=== PATIENT | female | born 1960 | race Hispanic/Latino ===

== ENCOUNTER 2018-08-17 15:02 | Emergency (ER) | payer BC, OTHER ==
--- OUTSIDE RECORDS SUMMARY | 2018-08-17 15:04 | XMS REPORT ---
:1960 Author Organization [employer] Care Team Providers Name Role Phone Slade, Na Provider Role Unavailable Allergies No Known Allergies Problems Problem Type Condition Code Onset Dates Condition Status Problem Anxiety F41.9 Active Problem Gastroesophageal reflux disease K21.9 Active without esophagitis Problem Essential hypertension I10 Active Problem Grieving F43.21 Active Problem Osteoarthritis involving multiple M15.9 Active joints on both sides of body Problem 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 Active Medications No Known Medications Results No Known Results Summary Purpose [employer] Submission
--- OUTSIDE RECORDS SUMMARY | 2018-08-17 15:04 | XMS REPORT ---
:1960 Author Organization [employer] Care Team Providers Name Role Phone Slade, Na Provider Role Unavailable Allergies, Adverse Reactions, Alerts Substance Reaction Event Type N.K.D.A. 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 Assessment Essential hypertension I10 Active Assessment Osteoarthritis involving multiple M15.9 Active joints on both sides of body Assessment Grieving F43.21 Active Assessment Gastroesophageal reflux disease K21.9 Active without esophagitis Assessment Anxiety F41.9 Active Problem Anxiety F41.9 Active Problem Gastroesophageal reflux disease K21.9 Active without esophagitis Problem Essential hypertension I10 Active Problem Grieving F43.21 Active Problem Osteoarthritis involving multiple M15.9 Active joints on both sides of body Problem 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 Active Medications Medication Code Code Instructions Start End Status Dosage System Date Date Gabapentin ND 19709689659 300 MG Orally July Active 1 capsule Once a day 2018 Diazepam ND 38341192285 5 MG Orally July Active 1 tablet Once a day prn 2018 as needed panic attacks Phenergan [facility] [address]-89 25mg Po Q 12 Active one tablet hours Robaxin-750 ND 25695575628 750 MG Orally Active 1 tablet every 4 hrs Seroquel XR ND 13901731591 300 MG Orally Active 1 tablet Once a day in the evening Lexapro ND 01692761016 20 MG Orally Active 1 tablet Once a day Alprazolam ND 84725390153 1 MG Orally Active 1 tablet Twice a day Losartan ND 40781002481 100 MG Orally Active 1 tablet Potassium Once a day Results No Known Results Summary Purpose [employer] Submission
--- OUTSIDE RECORDS SUMMARY | 2018-08-17 15:07 | XMS REPORT ---
:1960 [facility] Address [address] [place] [address] Care Team Providers Name Role Phone Gisselle Mai DIRECTOR BROADCAST-C Unavailable Unavailable Boogie Cox Unavailable Unavailable PROVIDER, ED TEMP Unavailable Unavailable HOMAR LOVELACE Unavailable Unavailable To, Bradford Unavailable Unavailable GREGORY PONCE Unavailable Unavailable DIANA CASTILLO Unavailable Unavailable Problems This patient has no known problems. Allergies, Adverse Reactions, Alerts This patient has no known allergies or adverse reactions. Medications This patient has no known medications. Results Test Description Test Time Test Comments Text Results Atomic Results Result Comments Culture, Urine 2017-08-07 15:57:00 Test Item Value Reference Range Comments Culture, Urine (test code=URC) NF Culture, Urine (test code=URC1) 10 NSF * This is an EDITED result. * A prior result that was reported as final has been changed. [id number] 22:53:00 Test Item Value Reference Range Comments Urinalysis (test LISA Yellow code=UACLR) Urinalysis (test CLOUDY Clear code=UACLY) Urinalysis (test 1.030 1.002-1.036 code=SPGR) Urinalysis (test 5.5 5.0-9.0 code=CELSO) Urinalysis (test Trace Negative code=UALEU) Urinalysis (test Negative Negative code=UANIT) Urinalysis (test Trace mg/dL Neg-Trace code=PROUADIP) Urinalysis (test Negative mg/dL Negative code=GLUCU) Urinalysis (test Negative mg/dL Negative code=KETU) Urinalysis (test 1.0 mg/dL 0.2-1.0 code=UAUROB) Urinalysis (test Small Negative CAU code=UABIL) TION Urine Bilirubin has a high incidence of false positiveresults due to urine color interferance.Interpret results in conjunction with other clinicalfindings. Urinalysis (test Negative Negative code=UABLD) Urinalysis (test 0-3 HPF 0-3 code=UARBC) Urinalysis (test 7-10 HPF 0-3 code=UAWBC) Urinalysis (test 7-10 HPF 0-3 code=UASQUAM) Urinalysis (test Rare-Few HPF None Seen code=UABAC) Urinalysis (test 7-10 HYALINE CAST 0-3 Hyaline code=UACAST) LPF Urine Source: Urine [id number] SURGICAL PATHOLOGY, LEVEL [id number] 14:31:00-- [address] [address] Laboratory Printed: 07/09/[address] [place] [address] DAEMPathology Page: 1 Patient: ZEKE ROMERO Birthdate: 1960 Age/Sex: 56/F Spec#: [id number]: HERMES SALAZAR Specimen Date: 07/08/17 Received Date: 07/08/17 Specimen: LIVER BIOPSY CLINICAL DIAGNOSIS cholestatic LFT's PATHOLOGIC DIAGNOSIS Liver, left, ultrasound-guided core biopsies: - 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 - Negative for bridging fibrosis and cirrhosis (trichrome and reticulin special stains,both performed with good external controls). - Scattered noncaseating epithelioid granulomas within portal tracts. - Negative for steatosis. - Negative for cholestasis. - Negative for increased hepatocellular iron deposition (Fe special stain performed withgood control). -Negative for neoplasia. Comment: The patient's positive anti-mitochondrial antibody (AMA) M2 fraction is noted.There is irregular proliferation of mildly atypical cholangioles along the border of portaltracts (highlighted with PAS/AB special stain performed with good external control). Portaltracts have nonsuppurative duct damage, with distorted ducts surrounded and infiltrated bysmall mature lymphocytes. The portal tracts also have inflammatory infiltration composed ofepithelioid histiocytes, plasma cells, and few neutrophils. Pathologist: Kelvin Conway Entered by:07/09/17 - 1430 [facility] PROCEDURES: 43655, 75403/4 Patient: ZEKE ROMERO ReLoc: T4-A MR#: [id number] CONTINUED ON NEXT PAGE Dis: 07/09/17ta: DIS IN [address] [address] Laboratory Printed: 07/09/17 1431 [facility] DAEMPathology Fax: Page: 2 Patient: ZEKE ROMERO [id number] (Continued) GROSS DESCRIPTION A. LIVER BIOPSY LEFT LOBE The specimen is received in 10%formalin, and is labeled with the patient's name and "liverbiopsy". The specimen consists of three cores of snow soft tissue ranging from 0.7 to 2.1 cmin length, and each one measures less than 0.1 cm in diameter. The entire specimen issubmitted in one cassette. Dictated by: DANII SHAHID Entered by:07/08/17 - 1316 [facility].YGP MICROSCOPIC DESCRIPTION A microscopic examination was performed to arrive at the diagnostic conclusion reported. Signed (Electronically Signed) Kelvin August 15 Patient: ZEKE ROMERO Re07/03/17Loc: T4-A MR#: [id number] END OF REPORT Dis: 07/09/18Sta: DIS [id number] 05:13:00 Test Item Value Reference Range Comments Chemistry (test code=NA-T) 138 mmol/L 136-145 Chemistry (test code=K-T) 3.7 mmol/L 3.5-5.1 Chemistry (test code=CL) 104 mmol/L 98-107 Chemistry (test code=CO2) 28 mmol/L 22-29 Chemistry (test code=ANGP) 10 mmol/L 10-20 Chemistry (test code=BUN) 5 mg/dL 9.8-20.1 Chemistry (test code=CREATT) 0.73 mg/dL 0.6-1.1 Chemistry (test 83 Reference Range for Estimated code=EGFRMDRD) GFR: Greater than 90 mL/min/1.73 m2NOTE:The MDRD equation has not been validated for use with theelderly (over 70 years of age), women, patientswith serious comorbid condition or persons with extremes ofbody size, muscle mass, or nutritional status. Chemistry (test code=GLU-T) 101 mg/dL 70-105 Chemistry (test code=CA) 8.9 mg/dL 7.8-10.44 Chemistry (test code=TBILI) 0.7 mg/dL 0.2-1.2 Chemistry (test code=TP) 6.6 g/dL 6.0-8.3 Chemistry (test code=ALB) 3.7 g/dL 3.5-5.0 Chemistry (test code=GLOB) 2.9 g/dL 2.4-3.5 Chemistry (test code=AG) 1.3 g/dL 1.2-2.2 Chemistry (test code=ALP) 626 U/L 40-150 Chemistry (test code=AST) 49 U/L 5-34 Chemistry (test code=ALT) 75 U/L 8-55 Reference Lab [id number] 04:14:00 Test Item Value Reference Range Comments Reference Lab Testing 10 U/mL 0-35 Laurent ECLIA methodologyPerformed at: (test evnn=FT359) - [facility] [address] [place], [place] [id number] Director: Chico Suero MD, Phone: [phone] Reference Lab [id number] 16:14:00 Test Item Value Reference Range Comments Reference Lab Testing (test 128.5 Units 0.0-20.0 code=MARLON) Negative 0.0 - 20.0 Equivocal 20.1 - 24.9 Positive >24.9Mitochondrial (M2) Antibodies are found in 90-96% ofpatients with primary biliary cirrhosis.Performed at: [facility] [id number] Director: Chester Rider MD, Phone: [phone] Reference Lab [id number] 16:14:00 Test Item Value Reference Range Comments Reference Lab Testing <9.0 U/mL 0.0-9.0 (test code=PANCAMY) Reference Lab Testing Less than 3.5 0.0-3.5 (test code=PANCAPR) U/mL Reference Lab Testing <1:20 titer Neg:<1:20 (test code=ANCAT) Reference Lab Testing <1:20 titer Neg:<1:20 The presence of positive (test code=ANCAP) fluorescence exhibiting P-ANCA orC-ANCA patterns alone is not specific for the diagnosis ofWegener's Granulomatosis (WG) or microscopic polyangiitis.Decisions about treatment should not be based solely onANCA IFA results. The International ANCA Group Consensusrecommends follow up testing of positive sera with both IA-3 and MPO-ANCA enzyme immunoassays. As many as 5% serumsamples are positive only by EIA. Ref. AM J Clin Vdqqqu8152;111:507-513. Reference Lab Testing <1:20 titer Neg:<1:20 The atypical pANCA pattern has (test code=ATANCA) been observed in asignificant percentage of patients with ulcerative colitis,primary sclerosing cholangitis and autoimmune hepatitis.Performed at: [facility] [id number] Director: Chester Rider MD, Phone: [phone] [id number] 05:12:00 Test Item Value Reference Range Comments Chemistry (test 138 mmol/L 136-145 code=NA-T) Chemistry (test 3.6 mmol/L 3.5-5.1 code=K-T) Chemistry (test code=CL) 106 mmol/L 98-107 Chemistry (test 25 mmol/L 22-29 code=CO2) Chemistry (test 11 mmol/L 10-20 code=ANGP) Chemistry (test Less than 4 mg/dL 9.8-20.1 code=BUN) Chemistry (test 0.66 mg/dL 0.6-1.1 code=CREATT) Chemistry (test Greater than 90 Reference Range for code=EGFRMDRD) Estimated GFR: Greater than 90 mL/min/1.73 m2NOTE:The MDRD equation has not been validated for use with theelderly (over 70 years of age), women, patientswith serious comorbid condition or persons with extremes ofbody size, muscle mass, or nutritional status. Chemistry (test 85 mg/dL 70-105 code=GLU-T) Chemistry (test code=CA) 8.5 mg/dL 7.8-10.44 Chemistry (test 0.8 mg/dL 0.2-1.2 code=TBILI) Chemistry (test code=TP) 6.5 g/dL 6.0-8.3 Chemistry (test 3.6 g/dL 3.5-5.0 code=ALB) Chemistry (test 2.9 g/dL 2.4-3.5 code=GLOB) Chemistry (test code=AG) 1.2 g/dL 1.2-2.2 Chemistry (test 641 U/L 40-150 code=ALP) Chemistry (test 53 U/L 5-34 code=AST) Chemistry (test 86 U/L 8-55 code=ALT) Reference Lab [id number] 22:07:00 Test Item Value Reference Range Comments Reference Lab Testing (test 785 IU/L 39-117 code=ISOALKT) Reference Lab Testing (test 25 % 14-68 code=ISOALKBT) Reference Lab Testing (test 74 % 18-85 code=ISOALKLT) Reference Lab Testing (test 1 % 0-18 Performed at: - [facility] code=ISOALKIT) [address] [id number] Director: Chico Suero MD, Phone: [phone] at: [facility] [address] [id number] Director: Chester Rider MD, Phone: [phone] [id number] 11:48:00 Test Item Value Reference Range Comments Chemistry (test code=TBILI) 0.7 mg/dL 0.2-1.2 Chemistry (test code=DBILI) 0.6 mg/dL 0.1-0.3 Chemistry (test code=TP) 5.9 g/dL 6.0-8.3 Chemistry (test code=ALB) 3.4 g/dL 3.5-5.0 Chemistry (test code=ALP) 635 U/L 40-150 Chemistry (test code=AST) 57 U/L 5-34 Chemistry (test code=ALT) 92 U/L 8-55 [id number] 06:08:00 Test Item Value Reference Range Comments Chemistry (test 140 mmol/L 136-145 code=NA-T) Chemistry (test code=K-T) 3.7 mmol/L 3.5-5.1 Chemistry (test code=CL) 107 mmol/L 98-107 Chemistry (test code=CO2) 29 mmol/L 22-29 Chemistry (test 8 mmol/L 10-20 code=ANGP) Chemistry (test code=BUN) 4 mg/dL 9.8-20.1 Chemistry (test 0.64 mg/dL 0.6-1.1 code=CREATT) Chemistry (test Greater than 90 Reference Range for code=EGFRMDRD) Estimated GFR: Greater than 90 mL/min/1.73 m2NOTE:The MDRD equation has not been validated for use with theelderly (over 70 years of age), women, patientswith serious comorbid condition or persons with extremes ofbody size, muscle mass, or nutritional status. Chemistry (test 91 mg/dL 70-105 code=GLU-T) Chemistry (test code=CA) 8.5 mg/dL 7.8-10.44 [id number] 06:06:00 Test Item Value Reference Range Comments Chemistry (test code=TBILI) 0.9 mg/dL 0.2-1.2 Chemistry (test code=DBILI) 0.7 mg/dL 0.1-0.3 Chemistry (test code=TP) 6.1 g/dL 6.0-8.3 Chemistry (test code=ALB) 3.5 g/dL 3.5-5.0 Chemistry (test code=ALP) 766 U/L 40-150 Chemistry (test code=AST) 100 U/L 5-34 Chemistry (test code=ALT) 129 U/L 8-55 [id number] 05:57:00 Test Item Value Reference Range Comments Hematology (test code=WBCT) 3.7 thou/uL 4.8-10.8 Hematology (test code=RBCT) 3.41 mill/uL 4.20-5.40 Hematology (test code=HGBT) 10.3 g/dL 12.0-16.0 Hematology (test code=HCTT) 31.7 % 36.0-47.0 Hematology (test code=MCV) 92.7 fl 81.0-99.0 Hematology (test code=MCH) 30.3 pg 27.0-31.0 Hematology (test code=MCHC) 32.7 g/dL 32.0-36.0 Hematology (test code=RDW) 11.8 % 11.5-14.5 Hematology (test code=PLTT) 201 thou/uL 130-400 Hematology (test code=MPV) 7.0 fL 7.4-10.4 Hematology (test code=%NEUT) 45.6 % 42.0-75.0 Hematology (test code=%LYMPH) 38.8 % 21.0-51.0 Hematology (test code=%MONO) 7.8 % 0.0-10.0 Hematology (test code=%EOS) 7.4 % 0.0-10.0 Hematology (test code=%BASO) 0.4 % 0.0-1.0 Hematology (test code=NEUT#) 1.7 thou/uL 1.40-6.50 Hematology (test code=LYMPH#) 1.4 thou/uL 1.20-3.40 Hematology (test code=MONO#) 0.3 thou/uL 0.11-0.59 Hematology (test code=EOS#) 0.3 thou/uL 0.0-0.7 Hematology (test code=BASO#) 0.0 thou/uL 0.0-0.2 [id number] 05:55:00 Test Item Value Reference Range Comments Coagulation (test 13.5 SEC 12.0-14.7 code=PT-T) Coagulation (test 1.0 ATTENTION: READ code=INR) CAREFULLY -The recommended therapeutic ranges for oral anticoagulanttreatments are: Low Intensity: 1.5 - 2.0 Moderate Intensity: 2.0 - 3.0 High Intensity (1): 2.5 - 3.5 High Intensity (2): 3.0 - 4.0 CRITICAL: > 4.0 Anticoagulant? [id number] 05:36:00 Test Item Value Reference Range Comments Chemistry (test 140 mmol/L 136-145 code=NA-T) Chemistry (test code=K-T) 3.9 mmol/L 3.5-5.1 Chemistry (test code=CL) 107 mmol/L 98-107 Chemistry (test code=CO2) 27 mmol/L 22-29 Chemistry (test 10 mmol/L 10-20 code=ANGP) Chemistry (test code=BUN) 7 mg/dL 9.8-20.1 Chemistry (test 0.64 mg/dL 0.6-1.1 code=CREATT) Chemistry (test Greater than 90 Reference Range for code=EGFRMDRD) Estimated GFR: Greater than 90 mL/min/1.73 m2NOTE:The MDRD equation has not been validated for use with theelderly (over 70 years of age), women, patientswith serious comorbid condition or persons with extremes ofbody size, muscle mass, or nutritional status. Chemistry (test 89 mg/dL 70-105 code=GLU-T) Chemistry (test code=CA) 8.9 mg/dL 7.8-10.44 [id number] 05:33:00 Test Item Value Reference Range Comments Chemistry (test code=TBILI) 0.9 mg/dL 0.2-1.2 Chemistry (test code=DBILI) 0.6 mg/dL 0.1-0.3 Chemistry (test code=TP) 6.8 g/dL 6.0-8.3 Chemistry (test code=ALB) 3.8 g/dL 3.5-5.0 Chemistry (test code=ALP) 864 U/L 40-150 Chemistry (test code=AST) 147 U/L 5-34 Chemistry (test code=ALT) 160 U/L 8-55 [id number] 05:28:00 Test Item Value Reference Range Comments Hematology (test code=WBCT) 4.6 thou/uL 4.8-10.8 Hematology (test code=RBCT) 3.58 mill/uL 4.20-5.40 Hematology (test code=HGBT) 10.8 g/dL 12.0-16.0 Hematology (test code=HCTT) 32.3 % 36.0-47.0 Hematology (test code=MCV) 90.2 fl 81.0-99.0 Hematology (test code=MCH) 30.2 pg 27.0-31.0 Hematology (test code=MCHC) 33.4 g/dL 32.0-36.0 Hematology (test code=RDW) 11.8 % 11.5-14.5 Hematology (test code=PLTT) 217 thou/uL 130-400 Hematology (test code=MPV) 6.6 fL 7.4-10.4 Hematology (test code=%NEUT) 57.5 % 42.0-75.0 Hematology (test code=%LYMPH) 30.2 % 21.0-51.0 Hematology (test code=%MONO) 7.6 % 0.0-10.0 Hematology (test code=%EOS) 3.6 % 0.0-10.0 Hematology (test code=%BASO) 1.1 % 0.0-1.0 Hematology (test code=NEUT#) 2.7 thou/uL 1.40-6.50 Hematology (test code=LYMPH#) 1.4 thou/uL 1.20-3.40 Hematology (test code=MONO#) 0.4 thou/uL 0.11-0.59 Hematology (test code=EOS#) 0.2 thou/uL 0.0-0.7 Hematology (test code=BASO#) 0.1 thou/uL 0.0-0.2 Chemistry - Elizabeth [id number] 13:02:00 Test Item Value Reference Range Comments Chemistry - Elizabeth Negative Negative Testing (test code=ANASC) Chemistry - Elizabeth Negative Negative SYMPHONY SCREEN INCLUDES: Testing (test SIDDIQUI, SS-A/Ro, SS-B/La, code=ANASYM) U1RNP,RNP70, SCL-70, CENP, Meka-1 Chemistry - Elizabeth 0.10 Ratio <0.7 Negative Testing (test code=ANASYMQUANT) Chemistry - Elizabeth 3.1 IU/mL <10 Negative Testing (test code=DSDNAIGG) Chemistry - Elizabeth dsDNA Less than Testing (test 10.0 IU/mL=Negative code=DSDNAINTERP) 10.0 - 15.0 IU/mL=Equivocal Greater than 15.0 IU/mL=POSITIVE Chemistry - Elizabeth NEW METHOD Values obtained with Testing (test different assay methods code=ELIAANANEWMETH) CANNOT be usedINTERCHANGEABLY.If in the course of monitoring a patient, the assay methodused for determining levels is changed, a newbaseline/serial monitoring may need to be performed.SEE REFERENCE RANGES FOR NEW METHODOLOGY.Method: Enzyme Linked Fluorescent Immunoassay (Elizabeth)References: [employer] Elizabeth Package Inserts - Directions for, June, July 2016, [facility]. [id number] 05:00:00 Test Item Value Reference Range Comments Chemistry (test code=TBILI) 0.9 mg/dL 0.2-1.2 Chemistry (test code=DBILI) 0.6 mg/dL 0.1-0.3 Chemistry (test code=TP) 6.9 g/dL 6.0-8.3 Chemistry (test code=ALB) 3.9 g/dL 3.5-5.0 Chemistry (test code=ALP) 837 U/L 40-150 Chemistry (test code=AST) 117 U/L 5-34 Chemistry (test code=ALT) 144 U/L 8-55 [id number] 04:50:00 Test Item Value Reference Range Comments Chemistry (test 139 mmol/L 136-145 code=NA-T) Chemistry (test code=K-T) 3.9 mmol/L 3.5-5.1 Chemistry (test code=CL) 107 mmol/L 98-107 Chemistry (test code=CO2) 24 mmol/L 22-29 Chemistry (test 12 mmol/L 10-20 code=ANGP) Chemistry (test code=BUN) 9 mg/dL 9.8-20.1 Chemistry (test 0.63 mg/dL 0.6-1.1 code=CREATT) Chemistry (test Greater than 90 Reference Range for code=EGFRMDRD) Estimated GFR: Greater than 90 mL/min/1.73 m2NOTE:The MDRD equation has not been validated for use with theelderly (over 70 years of age), women, patientswith serious comorbid condition or persons with extremes ofbody size, muscle mass, or nutritional status. Chemistry (test 90 mg/dL 70-105 code=GLU-T) Chemistry (test code=CA) 8.4 mg/dL 7.8-10.44 [id number] 04:39:00 Test Item Value Reference Range Comments Hematology (test code=WBCT) 4.8 thou/uL 4.8-10.8 Hematology (test code=RBCT) 3.63 mill/uL 4.20-5.40 Hematology (test code=HGBT) 10.8 g/dL 12.0-16.0 Hematology (test code=HCTT) 32.7 % 36.0-47.0 Hematology (test code=MCV) 90.0 fl 81.0-99.0 Hematology (test code=MCH) 29.9 pg 27.0-31.0 Hematology (test code=MCHC) 33.2 g/dL 32.0-36.0 Hematology (test code=RDW) 12.1 % 11.5-14.5 Hematology (test code=PLTT) 212 thou/uL 130-400 Hematology (test code=MPV) 6.1 fL 7.4-10.4 Hematology (test code=%NEUT) 57.1 % 42.0-75.0 Hematology (test code=%LYMPH) 29.2 % 21.0-51.0 Hematology (test code=%MONO) 6.9 % 0.0-10.0 Hematology (test code=%EOS) 5.8 % 0.0-10.0 Hematology (test code=%BASO) 1.0 % 0.0-1.0 Hematology (test code=NEUT#) 2.7 thou/uL 1.40-6.50 Hematology (test code=LYMPH#) 1.4 thou/uL 1.20-3.40 Hematology (test code=MONO#) 0.3 thou/uL 0.11-0.59 Hematology (test code=EOS#) 0.3 thou/uL 0.0-0.7 Hematology (test code=BASO#) 0.0 thou/uL 0.0-0.2 [id number] 17:07:00 Test Item Value Reference Range Comments Chemistry (test code=IGG) 1032.00 mg/dL 552-1631 [id number] 17:07:00 Test Item Value Reference Range Comments Chemistry (test code=IGM) 215.00 mg/dL 33-293 [id number] 00:50:00 Test Item Value Reference Range Comments Urinalysis (test code=UACLR) YELLOW Yellow Urinalysis (test code=UACLY) CLEAR Clear Urinalysis (test code=SPGR) Greater than 1.060 1.002-1.036 Urinalysis (test code=CELSO) 6.5 5.0-9.0 Urinalysis (test code=UALEU) Negative Negative Urinalysis (test code=UANIT) Negative Negative Urinalysis (test code=PROUADIP) Negative mg/dL Neg-Trace Urinalysis (test code=GLUCU) Negative mg/dL Negative Urinalysis (test code=KETU) Negative mg/dL Negative Urinalysis (test code=UAUROB) 1.0 mg/dL 0.2-1.0 Urinalysis (test code=UABIL) Negative Negative Urinalysis (test code=UABLD) Negative Negative Urine Source: Urine Clean [employer] - [id number] 00:25:00 Test Item Value Reference Range Comments Chemistry - Specials (test code=THEPAIGM) Non-Reactive NonReactive Chemistry - Specials (test code=THBSAG) Non-Reactive S/CO NonReactive Chemistry - Specials (test code=INTHBCM) Non-Reactive NonReactive Chemistry - Specials (test code=INTHEPC) Non-Reactive NonReactive [id number] 22:12:00 Test Item Value Reference Range Comments Chemistry (test code=NA-T) 139 mmol/L 136-145 Chemistry (test code=K-T) 4.0 mmol/L 3.5-5.1 Chemistry (test code=CL) 102 mmol/L 98-107 Chemistry (test code=CO2) 25 mmol/L 22-29 Chemistry (test code=ANGP) 16 mmol/L 10-20 Chemistry (test code=BUN) 12 mg/dL 9.8-20.1 Chemistry (test code=CREATT) 0.77 mg/dL 0.6-1.1 Chemistry (test 78 Reference Range for Estimated code=EGFRMDRD) GFR: Greater than 90 mL/min/1.73 m2NOTE:The MDRD equation has not been validated for use with theelderly (over 70 years of age), women, patientswith serious comorbid condition or persons with extremes ofbody size, muscle mass, or nutritional status. Chemistry (test code=GLU-T) 95 mg/dL 70-105 Chemistry (test code=CA) 10.2 mg/dL 7.8-10.44 Chemistry (test code=TBILI) 0.8 mg/dL 0.2-1.2 Chemistry (test code=TP) 9.2 g/dL 6.0-8.3 Chemistry (test code=ALB) 4.9 g/dL 3.5-5.0 Chemistry (test code=GLOB) 4.3 g/dL 2.4-3.5 Chemistry (test code=AG) 1.1 g/dL 1.2-2.2 Chemistry (test code=ALP) 1031 U/L 40-150 Chemistry (test code=AST) 117 U/L 5-34 Chemistry (test code=ALT) 196 U/L 8-55 [id number] 22:12:00 Test Item Value Reference Range Comments Chemistry (test code=LIP) 22 U/L 8-78 [id number] 21:50:00 Test Item Value Reference Range Comments Hematology (test code=WBCT) 8.9 thou/uL 4.8-10.8 Hematology (test code=RBCT) 4.69 mill/uL 4.20-5.40 Hematology (test code=HGBT) 14.0 g/dL 12.0-16.0 Hematology (test code=HCTT) 43.7 % 36.0-47.0 Hematology (test code=MCV) 93.1 fl 81.0-99.0 Hematology (test code=MCH) 29.9 pg 27.0-31.0 Hematology (test code=MCHC) 32.2 g/dL 32.0-36.0 Hematology (test code=RDW) 12.5 % 11.5-14.5 Hematology (test code=PLTT) 369 thou/uL 130-400 Hematology (test code=MPV) 6.8 fL 7.4-10.4 Hematology (test code=%NEUT) 61.7 % 42.0-75.0 Hematology (test code=%LYMPH) 28.1 % 21.0-51.0 Hematology (test code=%MONO) 5.3 % 0.0-10.0 Hematology (test code=%EOS) 3.7 % 0.0-10.0 Hematology (test code=%BASO) 1.2 % 0.0-1.0 Hematology (test code=NEUT#) 5.5 thou/uL 1.40-6.50 Hematology (test code=LYMPH#) 2.5 thou/uL 1.20-3.40 Hematology (test code=MONO#) 0.5 thou/uL 0.11-0.59 Hematology (test code=EOS#) 0.3 thou/uL 0.0-0.7 Hematology (test code=BASO#) 0.1 thou/uL 0.0-0.2 [id number] 22:49:00 Test Item Value Reference Range Comments Chemistry (test 139 mmol/L 136-145 code=NA-T) Chemistry (test code=K-T) 3.9 mmol/L 3.5-5.1 Chemistry (test code=CL) 105 mmol/L 98-107 Chemistry (test code=CO2) 22 mmol/L 22-29 Chemistry (test 16 mmol/L 10-20 code=ANGP) Chemistry (test code=BUN) 10 mg/dL 9.8-20.1 Chemistry (test 0.63 mg/dL 0.6-1.1 code=CREATT) Chemistry (test Greater than 90 Reference Range for code=EGFRMDRD) Estimated GFR: Greater than 90 mL/min/1.73 m2NOTE:The MDRD equation has not been validated for use with theelderly (over 70 years of age), women, patientswith serious comorbid condition or persons with extremes ofbody size, muscle mass, or nutritional status. Chemistry (test 103 mg/dL 70-105 code=GLU-T) Chemistry (test code=CA) 9.1 mg/dL 7.8-10.44 Chemistry (test 0.8 mg/dL 0.2-1.2 code=TBILI) Chemistry (test code=TP) 7.9 g/dL 6.0-8.3 Chemistry (test code=ALB) 4.1 g/dL 3.5-5.0 Chemistry (test 3.8 g/dL 2.4-3.5 code=GLOB) Chemistry (test code=AG) 1.1 g/dL 1.2-2.2 Chemistry (test code=ALP) 696 U/L 40-150 Chemistry (test code=AST) 73 U/L 5-34 Chemistry (test code=ALT) 78 U/L 8-55 [id number] 22:49:00 Test Item Value Reference Range Comments Chemistry (test code=LIP) 12 U/L 8-78 [id number] 22:24:00 Test Item Value Reference Range Comments Hematology (test code=WBCT) 6.0 thou/uL 4.8-10.8 Hematology (test code=RBCT) 3.59 mill/uL 4.20-5.40 Hematology (test code=HGBT) 10.9 g/dL 12.0-16.0 Hematology (test code=HCTT) 32.3 % 36.0-47.0 Hematology (test code=MCV) 89.9 fl 81.0-99.0 Hematology (test code=MCH) 30.4 pg 27.0-31.0 Hematology (test code=MCHC) 33.8 g/dL 32.0-36.0 Hematology (test code=RDW) 12.6 % 11.5-14.5 Hematology (test code=PLTT) 251 thou/uL 130-400 Hematology (test code=MPV) 7.3 fL 7.4-10.4 Hematology (test code=%NEUT) 63.7 % 42.0-75.0 Hematology (test code=%LYMPH) 24.9 % 21.0-51.0 Hematology (test code=%MONO) 8.4 % 0.0-10.0 Hematology (test code=%EOS) 2.5 % 0.0-10.0 Hematology (test code=%BASO) 0.5 % 0.0-1.0 Hematology (test code=NEUT#) 3.8 thou/uL 1.40-6.50 Hematology (test code=LYMPH#) 1.5 thou/uL 1.20-3.40 Hematology (test code=MONO#) 0.5 thou/uL 0.11-0.59 Hematology (test code=EOS#) 0.2 thou/uL 0.0-0.7 Hematology (test code=BASO#) 0.0 thou/uL 0.0-0.2 [id number] 22:00:00 Test Item Value Reference Range Comments Urinalysis (test code=UACLR) YELLOW Yellow Urinalysis (test code=UACLY) CLEAR Clear Urinalysis (test code=SPGR) 1.012 1.002-1.036 Urinalysis (test code=CELSO) 6.0 5.0-9.0 Urinalysis (test code=UALEU) Negative Negative Urinalysis (test code=UANIT) Negative Negative Urinalysis (test code=PROUADIP) Negative mg/dL Neg-Trace Urinalysis (test code=GLUCU) Negative mg/dL Negative Urinalysis (test code=KETU) Negative mg/dL Negative Urinalysis (test code=UAUROB) 1.0 mg/dL 0.2-1.0 Urinalysis (test code=UABIL) Negative Negative Urinalysis (test code=UABLD) Negative Negative Urine Source: Urine Clean [id number] 09:28:00 Test Item Value Reference Range Comments Accuchek (test code=ACU) 99 mg/dL 70-110 [id number] 09:14:00 Test Item Value Reference Range Comments Urinalysis (test code=UACLR) YELLOW Yellow Urinalysis (test code=UACLY) CLEAR Clear Urinalysis (test code=SPGR) 1.012 1.002-1.036 Urinalysis (test code=CELSO) 6.5 5.0-9.0 Urinalysis (test code=UALEU) Negative Negative Urinalysis (test code=UANIT) Negative Negative Urinalysis (test code=PROUADIP) Negative mg/dL Neg-Trace Urinalysis (test code=GLUCU) Negative mg/dL Negative Urinalysis (test code=KETU) Negative mg/dL Negative Urinalysis (test code=UAUROB) 1.0 mg/dL 0.2-1.0 Urinalysis (test code=UABIL) Negative Negative Urinalysis (test code=UABLD) Negative Negative Urine Source: Urine Clean [id number] 21:28:00 Test Item Value Reference Range Comments Urinalysis (test code=UACLR) YELLOW Yellow Urinalysis (test code=UACLY) CLEAR Clear Urinalysis (test code=SPGR) 1.010 1.002-1.036 Urinalysis (test code=CELSO) 6.5 5.0-9.0 Urinalysis (test code=UALEU) Negative Negative Urinalysis (test code=UANIT) Negative Negative Urinalysis (test code=PROUADIP) Negative mg/dL Neg-Trace Urinalysis (test code=GLUCU) Negative mg/dL Negative Urinalysis (test code=KETU) Negative mg/dL Negative Urinalysis (test code=UAUROB) 1.0 mg/dL 0.2-1.0 Urinalysis (test code=UABIL) Negative Negative Urinalysis (test code=UABLD) Negative Negative Urine Source: Urine Clean [id number] 21:09:00 Test Item Value Reference Range Comments Chemistry (test 137 mmol/L 136-145 code=NA-T) Chemistry (test code=K-T) 3.9 mmol/L 3.5-5.1 Chemistry (test code=CL) 103 mmol/L 98-107 Chemistry (test code=CO2) 25 mmol/L 22-29 Chemistry (test 13 mmol/L 10-20 code=ANGP) Chemistry (test code=BUN) 13 mg/dL 9.8-20.1 Chemistry (test 0.65 mg/dL 0.6-1.1 code=CREATT) Chemistry (test Greater than 90 Reference Range for code=EGFRMDRD) Estimated GFR: Greater than 90 mL/min/1.73 m2NOTE:The MDRD equation has not been validated for use with theelderly (over 70 years of age), women, patientswith serious comorbid condition or persons with extremes ofbody size, muscle mass, or nutritional status. Chemistry (test 94 mg/dL 70-105 code=GLU-T) Chemistry (test code=CA) 9.1 mg/dL 7.8-10.44 Chemistry (test 0.7 mg/dL 0.2-1.2 code=TBILI) Chemistry (test code=TP) 7.8 g/dL 6.0-8.3 Chemistry (test code=ALB) 4.1 g/dL 3.5-5.0 Chemistry (test 3.7 g/dL 2.4-3.5 code=GLOB) Chemistry (test code=AG) 1.1 g/dL 1.2-2.2 Chemistry (test code=ALP) 794 U/L 40-150 Chemistry (test code=AST) 106 U/L 5-34 Chemistry (test code=ALT) 95 U/L 8-55 [id number] 21:09:00 Test Item Value Reference Range Comments Chemistry (test code=LIP) 39 U/L 8-78 [id number] 20:49:00 Test Item Value Reference Range Comments Hematology (test code=WBCT) 7.1 thou/uL 4.8-10.8 Hematology (test code=RBCT) 3.60 mill/uL 4.20-5.40 Hematology (test code=HGBT) 11.0 g/dL 12.0-16.0 Hematology (test code=HCTT) 33.4 % 36.0-47.0 Hematology (test code=MCV) 92.7 fl 81.0-99.0 Hematology (test code=MCH) 30.5 pg 27.0-31.0 Hematology (test code=MCHC) 32.9 g/dL 32.0-36.0 Hematology (test code=RDW) 12.4 % 11.5-14.5 Hematology (test code=PLTT) 332 thou/uL 130-400 Hematology (test code=MPV) 6.3 fL 7.4-10.4 Hematology (test code=%NEUT) 60.0 % 42.0-75.0 Hematology (test code=%LYMPH) 27.6 % 21.0-51.0 Hematology (test code=%MONO) 7.5 % 0.0-10.0 Hematology (test code=%EOS) 4.4 % 0.0-10.0 Hematology (test code=%BASO) 0.6 % 0.0-1.0 Hematology (test code=NEUT#) 4.3 thou/uL 1.40-6.50 Hematology (test code=LYMPH#) 2.0 thou/uL 1.20-3.40 Hematology (test code=MONO#) 0.5 thou/uL 0.11-0.59 Hematology (test code=EOS#) 0.3 thou/uL 0.0-0.7 Hematology (test code=BASO#) 0.0 thou/uL 0.0-0.2 [id number] 21:34:00 Test Item Value Reference Range Comments Toxicology (test Not Detected NotDetected code=ROSMERY) Toxicology (test Not Detected NotDetected code=PCP) Toxicology (test Not Detected NotDetected code=COCN) Toxicology (test Not Detected NotDetected code=METHAMPU) Toxicology (test Detected NotDetected code=OPIA) Toxicology (test Not Detected NotDetected code=AMPHU) Toxicology (test Detected NotDetected code=TEVIN) Toxicology (test Detected NotDetected code=TRICY) Toxicology (test Not Detected NotDetected code=MTD) Toxicology (test Not Detected NotDetected code=SLIM) Toxicology (test Detected NotDetected code=OXYCOD) Toxicology (test Not Detected NotDetected code=PPX) Toxicology (test The [employer] Profile-V Panel code=MTCUTOFF) for Qualitative Drugs ofAbuse assays are for presumptive screening testing only.The drug class and detection limits are as follows:Drug Class Detection LimitAmphetamine 500 ng/mL*Barbiturates 200 ng/mLBenzodiazepines 150 ng/mL*Cocaine 150 ng/mL*Methamphetamine 500 ng/mL*Methadone 200 ng/mL*Opiates 100 ng/mL*Oxycodone 100 ng/mLPCP 25 ng/mLPropoxyphene 300 ng/mLTricyclic Antidepressants 300 ng/mLCannabinoids (THC) 50 ng/mLTests which yield a presumptive positive result must betested using a more specific alternate chemical method inorder to obtain a confirmed analytical result. Additionalconfirmation and identification may be ordered on a routinebasis, if desired. Presumptive positive urines are held fortwo weeks. Urine Source: Urine Clean [id number] 19:17:00 Test Item Value Reference Range Comments Urinalysis (test code=UACLR) YELLOW Yellow Urinalysis (test code=UACLY) CLEAR Clear Urinalysis (test code=SPGR) 1.013 1.002-1.036 Urinalysis (test code=CELSO) 6.0 5.0-9.0 Urinalysis (test code=UALEU) Negative Negative Urinalysis (test code=UANIT) Negative Negative Urinalysis (test code=PROUADIP) Negative mg/dL Neg-Trace Urinalysis (test code=GLUCU) Negative mg/dL Negative Urinalysis (test code=KETU) Negative mg/dL Negative Urinalysis (test code=UAUROB) 1.0 mg/dL 0.2-1.0 Urinalysis (test code=UABIL) Negative Negative Urinalysis (test code=UABLD) Negative Negative Urine Source: Urine [id number] 18:48:00 Test Item Value Reference Range Comments Chemistry (test code=NA-T) 137 mmol/L 136-145 Chemistry (test code=K-T) 3.9 mmol/L 3.5-5.1 Chemistry (test code=CL) 105 mmol/L 98-107 Chemistry (test code=CO2) 21 mmol/L 22-29 Chemistry (test code=ANGP) 15 mmol/L 10-20 Chemistry (test code=BUN) 13 mg/dL 9.8-20.1 Chemistry (test code=CREATT) 0.72 mg/dL 0.6-1.1 Chemistry (test 84 Reference Range for Estimated code=EGFRMDRD) GFR: Greater than 90 mL/min/1.73 m2NOTE:The MDRD equation has not been validated for use with theelderly (over 70 years of age), women, patientswith serious comorbid condition or persons with extremes ofbody size, muscle mass, or nutritional status. Chemistry (test code=GLU-T) 82 mg/dL 70-105 Chemistry (test code=CA) 9.3 mg/dL 7.8-10.44 Chemistry (test code=TBILI) 0.9 mg/dL 0.2-1.2 Chemistry (test code=TP) 8.1 g/dL 6.0-8.3 Chemistry (test code=ALB) 4.2 g/dL 3.5-5.0 Chemistry (test code=GLOB) 3.9 g/dL 2.4-3.5 Chemistry (test code=AG) 1.1 g/dL 1.2-2.2 Chemistry (test code=ALP) 750 U/L 40-150 Chemistry (test code=AST) 68 U/L 5-34 Chemistry (test code=ALT) 84 U/L 8-55 [id number] 18:48:00 Test Item Value Reference Range Comments Chemistry (test code=JORGE) 53.0 U/L 25-125 [id number] 18:48:00 Test Item Value Reference Range Comments Chemistry (test code=LIP) 10 U/L 8-78 [id number] 18:19:00 Test Item Value Reference Range Comments Hematology (test code=WBCT) 6.3 thou/uL 4.8-10.8 Hematology (test code=RBCT) 3.74 mill/uL 4.20-5.40 Hematology (test code=HGBT) 11.3 g/dL 12.0-16.0 Hematology (test code=HCTT) 34.8 % 36.0-47.0 Hematology (test code=MCV) 93.0 fl 81.0-99.0 Hematology (test code=MCH) 30.1 pg 27.0-31.0 Hematology (test code=MCHC) 32.4 g/dL 32.0-36.0 Hematology (test code=RDW) 12.1 % 11.5-14.5 Hematology (test code=PLTT) 231 thou/uL 130-400 Hematology (test code=MPV) 7.2 fL 7.4-10.4 Hematology (test code=%NEUT) 58.6 % 42.0-75.0 Hematology (test code=%LYMPH) 29.3 % 21.0-51.0 Hematology (test code=%MONO) 6.6 % 0.0-10.0 Hematology (test code=%EOS) 4.2 % 0.0-10.0 Hematology (test code=%BASO) 1.2 % 0.0-1.0 Hematology (test code=NEUT#) 3.7 thou/uL 1.40-6.50 Hematology (test code=LYMPH#) 1.8 thou/uL 1.20-3.40 Hematology (test code=MONO#) 0.4 thou/uL 0.11-0.59 Hematology (test code=EOS#) 0.3 thou/uL 0.0-0.7 Hematology (test code=BASO#) 0.1 thou/uL 0.0-0.2 Culture, [id number] 10:22:00 Test Item Value Reference Range Comments Culture, Urine (test code=URC) NF Culture, Urine (test code=URC1) 10 MSF [id number] 17:38:00 Test Item Value Reference Range Comments Chemistry (test code=PHOS) 2.9 mg/dL 2.3-4.7 [id number] 17:04:00 Test Item Value Reference Range Comments Chemistry (test code=NA-T) 138 mmol/L 136-145 Chemistry (test code=K-T) 4.5 mmol/L 3.5-5.1 Chemistry (test code=CL) 104 mmol/L 98-107 Chemistry (test code=CO2) 25 mmol/L 22-29 Chemistry (test code=ANGP) 14 mmol/L 10-20 Chemistry (test code=BUN) 14 mg/dL 9.8-20.1 Chemistry (test code=CREATT) 0.68 mg/dL 0.6-1.1 Chemistry (test 90 Reference Range for Estimated code=EGFRMDRD) GFR: Greater than 90 mL/min/1.73 m2NOTE:The MDRD equation has not been validated for use with theelderly (over 70 years of age), women, patientswith serious comorbid condition or persons with extremes ofbody size, muscle mass, or nutritional status. Chemistry (test code=GLU-T) 94 mg/dL 70-105 Chemistry (test code=CA) 9.4 mg/dL 7.8-10.44 Chemistry (test code=TBILI) 0.8 mg/dL 0.2-1.2 Chemistry (test code=TP) 8.0 g/dL 6.0-8.3 Chemistry (test code=ALB) 4.1 g/dL 3.5-5.0 Chemistry (test code=GLOB) 3.9 g/dL 2.4-3.5 Chemistry (test code=AG) 1.1 g/dL 1.2-2.2 Chemistry (test code=ALP) 940 U/L 40-150 Chemistry (test code=AST) 88 U/L 5-34 Chemistry (test code=ALT) 95 U/L 8-55 Chemistry - BNP, HgbA1c, [id number] 17:04:00 Test Item Value Reference Range Comments Chemistry - BNP, HgbA1c, 4.9 % 4.0-6.0 Therapeutic goals for glycemic PTHi (test code=KZMN6KB) control (ADA)Adults:- Goal of therapy: Less than 7.0% HbA1c- Action suggested: Greater than 8.0% BmM8wZyusuyxsw patients:- Toddlers and preschoolers: Less than 8.5% (but Greater than 7.5%)- School age (6-12 years): Less than 8%- Adolescents and young adults (13-19 years): Less than 7.5%Diagnosing diabetes (ADA)- HbA1c: Greater than or equal to 6.5% Values of 5.7 - 6.4% indicate HIGH risk for developing DiabetesInternational Expert Committee Report on the Role of the Z2SGiexu in the Diagnosis of Diabetes. Diabetes Care 2009July;32(7):1327-1334ADA, Diagnosis classification of diabetes mellitus.Diabetes Care 2010; 33 Suppl 1:S62 [id number] 16:59:00 Test Item Value Reference Range Comments Chemistry (test code=CRP) 1.16 mg/dL =or < 0.5 What test does the doctor want? C-REACTIVE PROTEIN (CRP)[id number] 16: 53:00 Test Item Value Reference Range Comments Urinalysis (test code=UACLR) Yellow Yellow Urinalysis (test code=UACLY) Clear Clear Urinalysis (test code=SPGR) 1.020 1.005-1.030 Urinalysis (test code=CELSO) 6.0 5.0-9.0 Urinalysis (test code=UALEU) Negative Negative Urinalysis (test code=UANIT) Negative Negative Urinalysis (test code=PROUADIP) Negative mg/dL Neg-Trace Urinalysis (test code=GLUCU) Negative mg/dL Negative Urinalysis (test code=KETU) Negative mg/dL Negative Urinalysis (test code=UAUROB) 4.0 mg/dL 0.2-1.0 Urinalysis (test code=UABIL) Negative Negative Urinalysis (test code=UABLD) Negative Negative Urinalysis (test code=UARBC) None Seen HPF 0-3 Urinalysis (test code=UAWBC) 0-3 HPF 0-3 Urinalysis (test code=UASQUAM) 7-10 HPF 0-3 Urinalysis (test code=UABAC) Rare-Few HPF None Seen Urine Source: Urine Clean [id number] 16:46:00 Test Item Value Reference Range Comments Hematology (test code=WBCT) 6.2 thou/uL 4.8-10.8 Hematology (test code=RBCT) 3.81 mill/uL 4.20-5.40 Hematology (test code=HGBT) 11.2 g/dL 12.0-16.0 Hematology (test code=HCTT) 35.7 % 36.0-47.0 Hematology (test code=MCV) 93.8 fl 81.0-99.0 Hematology (test code=MCH) 29.5 pg 27.0-31.0 Hematology (test code=MCHC) 31.5 g/dL 32.0-36.0 Hematology (test code=RDW) 13.6 % 11.5-14.5 Hematology (test code=PLTT) 284 thou/uL 130-400 Hematology (test code=MPV) 6.8 fL 7.4-10.4 Hematology (test code=%NEUT) 67.8 % 42.0-75.0 Hematology (test code=%LYMPH) 23.1 % 21.0-51.0 Hematology (test code=%MONO) 6.2 % 0.0-10.0 Hematology (test code=%EOS) 2.0 % 0.0-10.0 Hematology (test code=%BASO) 0.9 % 0.0-1.0 Hematology (test code=NEUT#) 4.2 thou/uL 1.40-6.50 Hematology (test code=LYMPH#) 1.4 thou/uL 1.20-3.40 Hematology (test code=MONO#) 0.4 thou/uL 0.11-0.59 Hematology (test code=EOS#) 0.1 thou/uL 0.0-0.7 Hematology (test code=BASO#) 0.1 thou/uL 0.0-0.2 [id number] 21:59:00 Test Item Value Reference Range Comments Urinalysis (test code=UACLR) YELLOW Yellow Urinalysis (test code=UACLY) CLEAR Clear Urinalysis (test code=SPGR) 1.014 1.002-1.036 Urinalysis (test code=CELSO) 6.0 5.0-9.0 Urinalysis (test code=UALEU) Trace Negative Urinalysis (test code=UANIT) Negative Negative Urinalysis (test code=PROUADIP) Negative mg/dL Neg-Trace Urinalysis (test code=GLUCU) Negative mg/dL Negative Urinalysis (test code=KETU) Negative mg/dL Negative Urinalysis (test code=UAUROB) 1.0 mg/dL 0.2-1.0 Urinalysis (test code=UABIL) Negative Negative Urinalysis (test code=UABLD) Negative Negative Urinalysis (test code=UARBC) 4-6 HPF 0-3 Urinalysis (test code=UAWBC) 11-20 HPF 0-3 Urinalysis (test code=UASQUAM) 4-6 HPF 0-3 Urinalysis (test code=UABAC) 3+ HPF None Seen Urinalysis (test code=UACAST) 0-3 HYALINE CAST LPF 0-3 Hyaline Urine Source: Urine Clean CatchSepsis - Lactic Acid >2 [id number] 23:59: 00 Test Item Value Reference Range Comments Sepsis - Lactic Acid >2 Additional Lactate testing will be performed Rflx (test code=ZLBIO7T) in 3 hrs according to the SepsisProtocol. [id number] 21:12:00 Test Item Value Reference Range Comments Chemistry (test code=JORGE) 59.0 U/L 25-125 [id number] 20:59:00 Test Item Value Reference Range Comments Chemistry (test 141 mmol/L 136-145 code=NA-T) Chemistry (test code=K-T) 3.7 mmol/L 3.5-5.1 Chemistry (test code=CL) 108 mmol/L 98-107 Chemistry (test code=CO2) 24 mmol/L 22-29 Chemistry (test 13 mmol/L 10-20 code=ANGP) Chemistry (test code=BUN) 4 mg/dL 9.8-20.1 Chemistry (test 0.74 mg/dL 0.6-1.1 code=CREATT) Chemistry (test 82 Reference Range for code=EGFRMDRD) Estimated GFR: Greater than 90 mL/min/1.73 m2NOTE:The MDRD equation has not been validated for use with theelderly (over 70 years of age), women, patientswith serious comorbid condition or persons with extremes ofbody size, muscle mass, or nutritional status. Chemistry (test 98 mg/dL 70-105 code=GLU-T) Chemistry (test code=CA) 8.9 mg/dL 7.8-10.44 Chemistry (test 0.5 mg/dL 0.2-1.2 code=TBILI) Chemistry (test code=TP) 7.8 g/dL 6.0-8.3 Chemistry (test code=ALB) 4.0 g/dL 3.5-5.0 Chemistry (test 3.8 g/dL 2.4-3.5 code=GLOB) Chemistry (test code=AG) 1.1 g/dL 1.2-2.2 Chemistry (test code=ALP) Less than 8 U/L 40-150 Chemistry (test code=AST) 92 U/L 5-34 Chemistry (test code=ALT) 87 U/L 8-55 [id number] 20:59:00 Test Item Value Reference Range Comments Chemistry (test code=LIP) 32 U/L 8-78 Chemistry - [id number] 20:59:00 Test Item Value Reference Range Comments Chemistry - Lactate (test code=LACTSEP-T) 2.1 mmol/L 0.5-2.2 [id number] 20:43:00 Test Item Value Reference Range Comments Urinalysis (test code=UACLR) YELLOW Yellow Urinalysis (test code=UACLY) CLEAR Clear Urinalysis (test code=SPGR) 1.008 1.002-1.036 Urinalysis (test code=CELSO) 6.5 5.0-9.0 Urinalysis (test code=UALEU) Negative Negative Urinalysis (test code=UANIT) Negative Negative Urinalysis (test code=PROUADIP) Negative mg/dL Neg-Trace Urinalysis (test code=GLUCU) Negative mg/dL Negative Urinalysis (test code=KETU) Negative mg/dL Negative Urinalysis (test code=UAUROB) 1.0 mg/dL 0.2-1.0 Urinalysis (test code=UABIL) Negative Negative Urinalysis (test code=UABLD) Negative Negative Urine Source: Urine [id number] 20:37:00 Test Item Value Reference Range Comments Hematology (test code=WBCT) 7.0 thou/uL 4.8-10.8 Hematology (test code=RBCT) 4.09 mill/uL 4.20-5.40 Hematology (test code=HGBT) 11.9 g/dL 12.0-16.0 Hematology (test code=HCTT) 36.0 % 36.0-47.0 Hematology (test code=MCV) 88.0 fl 81.0-99.0 Hematology (test code=MCH) 29.0 pg 27.0-31.0 Hematology (test code=MCHC) 32.9 g/dL 32.0-36.0 Hematology (test code=RDW) 14.1 % 11.5-14.5 Hematology (test code=PLTT) 299 thou/uL 130-400 Hematology (test code=MPV) 6.7 fL 7.4-10.4 Hematology (test code=%NEUT) 64.6 % 42.0-75.0 Hematology (test code=%LYMPH) 22.3 % 21.0-51.0 Hematology (test code=%MONO) 9.1 % 0.0-10.0 Hematology (test code=%EOS) 2.5 % 0.0-10.0 Hematology (test code=%BASO) 1.4 % 0.0-1.0 Hematology (test code=NEUT#) 4.5 thou/uL 1.40-6.50 Hematology (test code=LYMPH#) 1.6 thou/uL 1.20-3.40 Hematology (test code=MONO#) 0.6 thou/uL 0.11-0.59 Hematology (test code=EOS#) 0.2 thou/uL 0.0-0.7 Hematology (test code=BASO#) 0.1 thou/uL 0.0-0.2
[2018-08-17] MEDS ORDERED: ONDANSETRON 4 MG/2 ML VIAL ONE (16:01)
[2018-08-17] MEDS ORDERED: MORPHINE 4 MG/ML SYR ONE (16:01)
[2018-08-17] MEDS ORDERED: NA CHLORIDE 0.9% 1,000 ML ONE (16:01)
[2018-08-17 16:17] LABS: Absolute Lymphocytes (CBC) 1.6 K/uL (0.7-4.9); Absolute Monocytes 0.5 K/uL (0.1-1.3); Absolute Neutrophil 4.8 K/uL (1.8-8.0); Basophils % 0.8 % (0-1.3); Eosinophils % 3.4 % (0-4.4); Lymphocytes % 22.2 % (15.3-44.8); MPV 7.8 fL (7.6-11.3); Monocytes % 6.6 % (3.3-12.3)
[2018-08-17 16:18] LABS: Urine Blood NEGATIVE (NEG); Urine Glucose NEGATIVE (NEG); Urine Protein NEGATIVE (NEG); Urine Specific Gravity 1.015 (1.005-1.030)
[2018-08-17 16:34] LABS: ALT/SGPT 148 U/L (12-78); AST/SGOT 135 U/L (15-37); Albumin 4.2 g/dL (3.4-5.0); Alkaline Phosphatase 933 U/L (45-117); BUN Blood Urea Nitrogen 15 mg/dL (7-18); Bicarbonate 27 mmol/L (21-32); Bilirubin Direct 0.6 mg/dL (0-0.2); Bilirubin Total 0.9 mg/dL (0.2-1.0); Glucose Level 103 mg/dL (74-106); Lipase 848 U/L (73-393); Potassium 4.1 mmol/L (3.5-5.1); Protein, Total 8.4 g/dL (6.4-8.2); Sodium Level 139 mmol/L (136-145)
--- NOTE | 2018-08-17 17:17 | RAD REPORT ---
EXAM DESCRIPTION: CT - Abdomen Pelvis W Contrast - 08/17/2018 4:55 pm CLINICAL HISTORY: Epigastric pain, abdominal pain, nausea, history of biliary disease and pancreatit is, history of cholecystectomy and biliary stenting COMPARISON: CT study May 2016 TECHNIQUE: Biphasic, helical CT imaging of the abdomen and pelvis was performed following 100 ml non -ionic IV contrast. Oral contrast was given. All CT scans are performed using dose optimization technique as appropriate and may include automated exposure control or mA/KV adjustment according to patient size. FINDINGS: No suspicious findings in the lung bases. Liver shows a mild diffuse fatty infiltration pattern. No focal liver parenchymal lesion. Liver and s pleen are normal in size. There are no focal splenic findings. No pancreatitis or acute pancreatic pr ocess. Gallbladder is absent. No abnormal biliary tree dilatation. Pneumobilia is present. Pancreatic duct is mildly prominent. These are stable findings from comparison. Symmetric renal function is seen with no hydronephrosis or suspicious renal mass. No pyelonephritis o r acute parenchymal process. No bladder abnormalities. No adrenal abnormalities. Uterus and ovaries s how no suspicious findings. No dilated bowel loops or bowel wall thickening. Appendectomy clips are present. No active GI process identifiable. Miller the gastric antrum are prominent but believed be a peristalsis artifact. Again, appearance is similar to comparison. No free air, free fluid or inflammatory stranding. No hernia, mass or bulky lymphadenopathy. No suspicious bony findings. IMPRESSION: Contrast enhanced CT abdomen and pelvis showing no acute finding. Above detailed findings are similar to the 2017 comparison.
[2018-08-17] MEDS ORDERED: HYDROCODONE/APAP 10/325 TAB ONE (18:03)
[2018-08-17] MEDS ORDERED: DICYCLOMINE HCL 10 MG CAP ONE (18:58)
[2018-08-17] MEDS ORDERED: KETOROLAC 30 MG/ML INJ ONE (18:58)
--- NOTE | 2018-08-17 19:00 | ER ---
Nurse's Notes [facility] Name: Yessenia Aleman Age: 57 yrs Sex: Female : 1960 Arrival Date: 08/17/2018 Time: 15:06 Bed 17 Private MD: Jeannie Slade Diagnosis: Other chronic pancreatitis Presentation: 08/17 15:19 Presenting complaint: Patient states: Epigastric pain and nausea x 3 days and vomiting ss that began today. Pt reports this feels similar to her pancreatitis flare ups. Transition of care: patient was not received from another setting of care. Onset of symptoms was August 14, 2018. Risk Assessment: Do you want to hurt yourself or someone else? Patient reports no desire to harm self or others. Initial Sepsis Screen: Does the patient meet any 2 criteria? No. Patient's initial sepsis screen is negative. Does the patient have a suspected source of infection? No. Patient's initial sepsis screen is negative. Care prior to arrival: None. 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 - Social history:: Smoking status: Patient/guardian denies using tobacco. - Ebola Screening: : Patient denies exposure to infectious person Patient denies travel to an Ebola-affected area in the 21 days before illness onset. Screenin:12 Abuse screen: Denies threats or abuse. Nutritional screening: No deficits noted. em Tuberculosis screening: No symptoms or risk factors identified. Fall Risk None identified. Assessment: 15:40 General: Appears in no apparent distress. uncomfortable, Behavior is calm, cooperative, em Denies fever. Pain: Complains of pain in epigastric area and right upper quadrant Pain currently is 10 out of 10 on a pain scale. Quality of pain is described as sharp. Neuro: Level of Consciousness is awake, alert, obeys commands, Oriented to person, place, time, situation. Cardiovascular: Capillary refill < 3 seconds Patient's skin is warm and dry. Respiratory: Airway is patent Respiratory effort is even, unlabored, Respiratory pattern is regular, symmetrical. GI: Abdomen is flat, Bowel sounds present X 4 quads. Abd is soft X 4 quads Abdomen is tender to palpation in right upper quadrant and left upper quadrant Reports nausea, vomiting. Derm: Skin is intact, is healthy with good turgor, Skin is pink, warm \T\ dry. Musculoskeletal: Capillary refill < 3 seconds, Range of motion: intact in all extremities. 15:45 General: The previous assessment is accurate, call light remains within reach.. ss 16:22 Reassessment: Patient appears in no apparent distress at this time. rates pain 3/10. em 17:09 Reassessment: Patient appears in no apparent distress at this time. Patient and/or em family updated on plan of care and expected duration. Pain level reassessed. Patient is alert, oriented x 3, equal unlabored respirations, skin warm/dry/pink. 17:45 Reassessment: reports pain 10/10, provider notified, new medication orders. em 18:24 Reassessment: Patient appears in no apparent distress at this time. Patient and/or em family updated on plan of care and expected duration. Pain level reassessed. Patient is alert, oriented x 3, equal unlabored respirations, skin warm/dry/pink. rates pain 6/10. 19:10 General: Appears in no apparent distress. comfortable, Behavior is calm, cooperative, cc3 appropriate for age. Pain: Denies pain. Neuro: Level of Consciousness is awake, alert, obeys commands, Oriented to person, place, time, situation, Appropriate for age. Cardiovascular: Capillary refill < 3 seconds Patient's skin is warm and dry. Respiratory: Airway is patent Respiratory effort is even, unlabored, Respiratory pattern is regular, symmetrical. GI: Abdomen is round non-distended. : No signs and/or symptoms were reported regarding the genitourinary system. EENT: No signs and/or symptoms were reported regarding the EENT system. Derm: Skin is intact, is healthy with good turgor, Skin is pink, warm \T\ dry. Musculoskeletal: Circulation, motion, and sensation intact. Capillary refill < 3 seconds, Range of motion: intact in all extremities. 19:30 Reassessment: Patient appears in no apparent distress at this time. Patient and/or cc3 family updated on plan of care and expected duration. Pain level reassessed. Patient is alert, oriented x 3, equal unlabored respirations, skin warm/dry/pink. Informed ORNAMENTAL PLASTERER HELPER Cosmo regarding the high blood pressure reading of the patient and he said it's fine and discharged the patient home with prescriptions given. IV cannula removed and patient left ER vitally stable and ambulatory with her . Vital Signs: 15:20 BP 168 / 121; Pulse 95; Resp 18; Temp 98.5(O); Pulse Ox 98% on R/A; Weight 81.19 kg; ss Height 5 ft. 0 in. (152.40 cm); Pain 10/10; 16:02 BP 178 / 112; Pulse 87; Resp 18; Pulse Ox 99% on R/A; Pain 10/10; em 17:09 BP 153 / 99; Pulse 79; Resp 18; Pulse Ox 99% on R/A; em 18:00 BP 162 / 94; Pulse 73; Resp 18; Pulse Ox 100% on R/A; em 19:14 BP 177 / 98; Pulse 71; Resp 18 S; Pulse Ox 97% on R/A; cc3 15:20 Body Mass Index 34.96 (81.19 kg, 152.40 cm) ss ED Course: 15:06 Patient arrived in ED. as 15:06 Jeannie Slade MD is Private Physician. as 15:20 Triage completed. ss 15:20 Arm band placed on right wrist. ss 15:25 Renan Giordano LVN is Primary Nurse. em 15:27 [facility] pm1 15:27 Kyler Flores MD is Attending Physician. pm1 15:52 Radiology exam delayed due to lab results not completed at this time. kw1 16:10 Initial lab(s) drawn, by me, sent to lab. Inserted saline lock: 20 gauge in right em antecubital area, using aseptic technique. Blood collected. 16:12 Patient has correct armband on for positive identification. Placed in gown. Bed in low em position. Call light in reach. Side rails up X2. Pulse ox on. NIBP on. 16:54 CT completed. Patient tolerated procedure well. Patient moved back from CT. bq 16:55 CT Abd/Pelvis - W/Contrast: IV contrast only In Process Unspecified. EDMS 18:59 Elijah Neumann MD is Referral Physician. pm1 19:30 No provider procedures requiring assistance completed. IV discontinued, intact, cc3 bleeding controlled, No redness/swelling at site. Pressure dressing applied. Administered Medications: 16:12 Drug: morphine 4 mg Route: IVP; Site: right antecubital; ss 16:30 Follow up: Response: No adverse reaction; Pain is decreased em 16:12 Drug: Zofran 4 mg Route: IVP; Site: right antecubital; ss 16:30 Follow up: Response: No adverse reaction; Nausea is decreased em 16:15 Drug: NS 0.9% 1000 ml Route: IV; Rate: 1000 ml; Site: right antecubital; em 17:51 Follow up: IV Status: Completed infusion; IV Intake: 1000ml em 17:54 Drug: [place] 10 mg-325 mg 1 tabs Route: PO; em 18:43 Follow up: Response: No adverse reaction; Pain is decreased em 18:45 Drug: TORadol 30 mg Route: IVP; Site: right antecubital; ss 19:30 Follow up: Response: No adverse reaction; Pain is decreased cc3 18:45 Drug: Bentyl 20 mg Route: PO; em 19:30 Follow up: Response: No adverse reaction; Pain is decreased cc3 Intake: 17:51 IV: 1000ml; Total: 1000ml. em Outcome: 18:59 Discharge ordered by MD. pm1 19:30 Discharged to home ambulatory, with family. cc3 19:30 Condition: stable 19:30 Discharge instructions given to patient, family, Instructed on discharge instructions, follow up and referral plans. medication usage, Demonstrated understanding of instructions, follow-up care, medications, Prescriptions given X 2. 19:36 Patient left the ED. cc3 Signatures: Dispatcher [employer] EDMS Roma Wilkinson, Renan, SENIOR PRINCIPAL SOFTWARE ENGINEER SENIOR PRINCIPAL SOFTWARE ENGINEER em Stephanie Messina Shelby, RN RN ss Mitch Wilburn, ORNAMENTAL PLASTERER HELPER ORNAMENTAL PLASTERER HELPER pm1 Teodora Alanis kw1 Mary Carmen cc3
--- NOTE | 2018-08-17 19:00 | EDPHYS ---
Physician Documentation [facility] Name: Yessenia Aleman Age: 57 yrs Sex: Female : 1960 Arrival Date: 08/17/2018 Time: 15:06 Bed 17 Private MD: Jeannie Slade ED Physician Kyler Flores HPI: 08/17 19:05 This 57 yrs old Female presents to ER via Ambulatory with complaints of pm1 Epigastric Pain. 19:05 The patient presents with abdominal pain in the right upper quadrant. Onset: The pm1 symptoms/episode began/occurred 3 day(s) ago. The symptoms do not radiate. 19:05 Associated signs and symptoms: Pertinent positives: vomiting today, Pertinent pm1 negatives: chest pain, diarrhea, dysuria, fever, shortness of breath. The symptoms are described as burning, crampy. Modifying factors: The symptoms are alleviated by nothing, the symptoms are aggravated by food. Severity of pain: in the emergency department the pain is actually worse. The patient has experienced similar episodes in the past, several times. The patient has not recently seen a physician, plans of seeing Dr. Neumann in the future. 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 - Social history:: Smoking status: Patient/guardian denies using tobacco. - Ebola Screening: : Patient denies exposure to infectious person Patient denies travel to an Ebola-affected area in the 21 days before illness onset. ROS: 19:05 Constitutional: Negative for fever, chills, and weight loss, Eyes: Negative for injury, pm1 pain, redness, and discharge, ENT: Negative for injury, pain, and discharge, Neck: Negative for injury, pain, and swelling, Cardiovascular: Negative for chest pain, palpitations, and edema, Respiratory: Negative for shortness of breath, cough, wheezing, and pleuritic chest pain. 19:05 Back: Negative for injury and pain, : Negative for injury, bleeding, discharge, and swelling, MS/Extremity: Negative for injury and deformity, Skin: Negative for injury, rash, and discoloration, Neuro: Negative for headache, weakness, numbness, tingling, and seizure. 19:05 Abdomen/GI: Positive for abdominal pain, nausea and vomiting, Negative for diarrhea, constipation. Exam: 19:05 Constitutional: This is a well developed, well nourished patient who is awake, alert, pm1 and in no acute distress. Head/Face: Normocephalic, atraumatic. Eyes: Pupils equal round and reactive to light, extra-ocular motions intact. Lids and lashes normal. Conjunctiva and sclera are non-icteric and not injected. Cornea within normal limits. Periorbital areas with no swelling, redness, or edema. ENT: Nares patent. No nasal discharge, no septal abnormalities noted. Tympanic membranes are normal and external auditory canals are clear. Oropharynx with no redness, swelling, or masses, exudates, or evidence of obstruction, uvula midline. Mucous membranes moist. Neck: Trachea midline, no thyromegaly or masses palpated, and no cervical lymphadenopathy. Supple, full range of motion without nuchal rigidity, or vertebral point tenderness. No Meningismus. Chest/axilla: Normal chest wall appearance and motion. Nontender with no deformity. No lesions are appreciated. Cardiovascular: Regular rate and rhythm with a normal S1 and S2. No gallops, murmurs, or rubs. Normal PMI, no JVD. No pulse deficits. Respiratory: Lungs have equal breath sounds bilaterally, clear to auscultation and percussion. No rales, rhonchi or wheezes noted. No increased work of breathing, no retractions or nasal flaring. Back: No spinal tenderness. No costovertebral tenderness. Full range of motion. 19:05 Skin: Warm, dry with normal turgor. Normal color with no rashes, no lesions, and no evidence of cellulitis. MS/ Extremity: Pulses equal, no cyanosis. Neurovascular intact. Full, normal range of motion. 19:05 Abdomen/GI: Inspection: abdomen appears normal, Bowel sounds: normal, Palpation: soft, mild abdominal tenderness, in the right upper quadrant, mass, is not appreciated, rebound tenderness, is not appreciated. 19:05 Neuro: Orientation: is normal, Motor: is normal, moves all fours. Vital Signs: 15:20 BP 168 / 121; Pulse 95; Resp 18; Temp 98.5(O); Pulse Ox 98% on R/A; Weight 81.19 kg; ss Height 5 ft. 0 in. (152.40 cm); Pain 10/10; 16:02 BP 178 / 112; Pulse 87; Resp 18; Pulse Ox 99% on R/A; Pain 10/10; em 17:09 BP 153 / 99; Pulse 79; Resp 18; Pulse Ox 99% on R/A; em 18:00 BP 162 / 94; Pulse 73; Resp 18; Pulse Ox 100% on R/A; em 19:14 BP 177 / 98; Pulse 71; Resp 18 S; Pulse Ox 97% on R/A; cc3 15:20 Body Mass Index 34.96 (81.19 kg, 152.40 cm) ss MDM: 15:28 Patient medically screened. pm1 18:58 Data reviewed: vital signs. Data interpreted: Pulse oximetry: on room air is 100 %. pm1 Interpretation: normal. 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 19:00 ED course: Discussed with patient her labs and CT results. Patient with history of pm1 chronic pancreatitis. CT results without any acute findings. Discussed lab results with patient and . Discussed with patient that she does not currently meet admission criteria. Educated on need to follow up with GI for further evaluation and for evaluation of her biliary tree. Educated on return precautions . 08/17 15:37 Order name: Basic Metabolic Panel; Complete Time: 16:39 pm1 08/17 15:37 Order name: CBC with Diff; Complete Time: 16:32 pm1 08/17 15:37 Order name: Creatinine for Radiology; Complete Time: 16:32 pm1 08/17 15:37 Order name: Hepatic Function; Complete Time: 16:39 pm1 08/17 15:37 Order name: Lipase; Complete Time: 16:39 pm1 08/17 16:02 Order name: Urine Dipstick--Ancillary (enter results); Complete Time: 16:32 em1 08/17 15:37 Order name: CT Abd/Pelvis - W/Contrast: IV contrast only; Complete Time: 17:20 pm1 08/17 16:02 Order name: Urine --Ancillary (enter results); Complete Time: 16:32 em1 08/17 15:37 Order name: IV Saline Lock; Complete Time: 16:15 pm1 08/17 15:37 Order name: Labs collected and sent; Complete Time: 16:15 pm1 08/17 15:37 Order name: Urine Dipstick-Ancillary (obtain specimen); Complete Time: 15:58 pm1 08/17 15:37 Order name: Urine Test (obtain specimen); Complete Time: 15:58 pm1 Administered Medications: 16:12 Drug: morphine 4 mg Route: IVP; Site: right antecubital; ss 16:30 Follow up: Response: No adverse reaction; Pain is decreased em 16:12 Drug: Zofran 4 mg Route: IVP; Site: right antecubital; ss 16:30 Follow up: Response: No adverse reaction; Nausea is decreased em 16:15 Drug: NS 0.9% 1000 ml Route: IV; Rate: 1000 ml; Site: right antecubital; em 17:51 Follow up: IV Status: Completed infusion; IV Intake: 1000ml em 17:54 Drug: [place] 10 mg-325 mg 1 tabs Route: PO; em 18:43 Follow up: Response: No adverse reaction; Pain is decreased em 18:45 Drug: TORadol 30 mg Route: IVP; Site: right antecubital; ss 19:30 Follow up: Response: No adverse reaction; Pain is decreased cc3 18:45 Drug: Bentyl 20 mg Route: PO; em 19:30 Follow up: Response: No adverse reaction; Pain is decreased cc3 Disposition: 08/18 06:52 Co-signature as Attending Physician, Kyler Flores MD I agree with the assessment and irene plan of care. Disposition: 08/17/18 18:59 Discharged to Home. Impression: Other chronic pancreatitis. - Condition is Stable. - Discharge Instructions: Clear Liquid Diet, Adult, Chronic Pancreatitis. - Prescriptions for Bentyl 20 mg Oral Tablet - take 1 tablet by ORAL route every 6 hours As needed; 20 tablet. Zofran 4 mg Oral Tablet - take 1 tablet by ORAL route every 12 hours As needed; 20 tablet. - Medication Reconciliation Form, Thank You Letter, Antibiotic Education, Prescription Opioid Use form. - Follow up: Emergency Department; When: As needed; Reason: Worsening of condition. Follow up: Elijah Neumann MD; When: 2 - 3 days; Reason: Recheck today's complaints, Continuance of care, Re-evaluation by your physician. Signatures: Dispatcher [employer] Kyler Arana MD MD cha Munoz, Edgar, WELL FLOW OPERATOR WELL FLOW OPERATOR Estrella Rowan RN RN Mitch Thurman NP FIELD SERVICE CONSULTANT pm1 Mary Carmen cc3 Corrections: (The following items were deleted from the chart) 08/17 19:36 18:59 08/17/2018 18:59 Discharged to Home. Impression: Other chronic pancreatitis. cc3 Condition is Stable. Forms are Medication Reconciliation Form, Thank You Letter, Antibiotic Education, Prescription Opioid Use. Follow up: Emergency Department; When: As needed; Reason: Worsening of condition. Follow up: Elijah Neumann; When: 2 - 3 days; Reason: Recheck today's complaints, Continuance of care, Re-evaluation by your physician. pm1
[2018-08-17 19:41] VITALS: TEMP 98.5
[2018-08-17 19:46] VITALS: BP 177/98; O2SAT 97
== END 2018-08-17 19:36 | disposition home or self-care (01) ==
LOC: ER 15:02
DX: K86.1 Other chronic pancreatitis (principal)
CPT/HCPCS: 36415; 74177; 80048; 80076; 81003; 81025; 83690; 85025; 96361; 96374; 96375; 99284; J2405; J7030; Q9967

== ENCOUNTER 2018-08-20 18:35 | Emergency (ER) | payer OTHER ==
--- OUTSIDE RECORDS SUMMARY | 2018-08-20 18:37 | XMS REPORT ---
[...] Status Dosage System Date Date Gabapentin ND 72739547238 300 MG Orally July Active 1 capsule Once a day 2018 Diazepam ND 73546365918 5 MG Orally July Active 1 tablet Once a day prn 2018 as needed panic attacks Phenergan [facility] [address]-20 25mg Po Q 12 Active one tablet hours Robaxin-750 ND 80346755690 750 MG Orally Active 1 tablet every 4 hrs Seroquel XR ND 89001592057 300 MG Orally Active 1 tablet Once a day in the evening Lexapro ND 06806295549 20 MG Orally Active 1 tablet Once a day Alprazolam ND 06944294115 1 MG Orally Active 1 tablet Twice a day Losartan ND 02161443540 100 MG Orally Active 1 tablet Potassium Once a day Results No Known Results Summary Purpose eClinicalWorks Submission
--- OUTSIDE RECORDS SUMMARY | 2018-08-20 18:40 | XMS REPORT ---
:1960 [facility] Address [address] [place] [address] Care Team Providers Name Role Phone Gisselle Mai [employer] MEMBER-C Unavailable Unavailable Boogie Cox Unavailable Unavailable PROVIDER, [...] was reported as final has been changed. [id number] 22:53:00 Test Item Value Reference Range Comments [...] 0-3 Hyaline code=UACAST) LPF Urine Source: Urine [id number] SURGICAL PATHOLOGY, LEVEL [id number] 14:31:00-- [place] [address] Laboratory Printed: 07/09/17 [facility] DAEM[facility] Page: 1 Patient: ZEKE ROMERO Birthdate: 1960 Age/Sex: 56/F Spec#: [id number]: HERMES SALAZAR Specimen Date: 07/08/17 [...] Pathologist: Kelvin Conway Entered by:07/09/17 - [address] [facility] PROCEDURES: 16107, 38519/4 Patient: ZEKE ROMERO ReLoc: T4-A MR#: [id number] CONTINUED ON NEXT PAGE Dis: 07/09/17ta: DIS IN [address] [address] Laboratory Printed: 07/09/17 [facility] F[facility]: Page: 2 Patient: ZEEK ROMERO [id number] (Continued) GROSS DESCRIPTION A. LIVER BIOPSY LEFT [...] Dictated by: DANII SHAHID Entered by:07/08/17 - [facility].YGP MICROSCOPIC DESCRIPTION A microscopic examination was performed to arrive at the diagnostic conclusion reported. Signed (Electronically Signed) Kelvin August 15 Patient: ZEKE ROMERO Re07/03/17Loc: T4-A MR#: [id number] END OF REPORT Dis: 07/09/17ta: DIS [id number] 05:13:00 Test Item Value Reference Range Comments [...] (test code=ALT) 75 U/L 8-55 Reference Lab [id number] 04:14:00 Test Item Value Reference Range Comments Reference Lab Testing 10 U/mL 0-35 Laurent ECLIA methodologyPerformed at: (test suna=FL755) - [address] [id number] Director: Chico Suero MD, Phone: [phone] Reference Lab [id number] 16:14:00 Test Item Value Reference Range Comments Reference Lab Testing (test 128.5 Units 0.0-20.0 code=MARLON) Negative 0.0 - 20.0 Equivocal 20.1 - 24.9 Positive >24.9Mitochondrial (M2) Antibodies are found in 90-96% ofpatients with primary biliary cirrhosis.Performed at: [address] [id number] Director: Chester Rider MD, Phone: [phone] Reference Lab [id number] 16:14:00 Test Item Value Reference Range Comments [...] up testing of positive sera with both FL-3 and MPO-ANCA enzyme immunoassays. As many as 5% serumsamples are positive only by EIA. Ref. AM J Clin Soujbc9554;111:507-513. Reference Lab Testing <1:20 titer Neg:<1:20 The atypical pANCA pattern has (test code=ATANCA) been observed in asignificant percentage of patients with ulcerative colitis,primary sclerosing cholangitis and autoimmune hepatitis.Performed at: [address] [id number] Director: Chester Rider MD, Phone: [phone] [id number] 05:12:00 Test Item Value Reference Range Comments [...] (test 86 U/L 8-55 code=ALT) Reference Lab [id number] 22:07:00 Test Item Value Reference Range Comments Reference Lab Testing (test 785 IU/L 39-117 code=ISOALKT) Reference Lab Testing (test 25 % 14-68 code=ISOALKBT) Reference Lab Testing (test 74 % 18-85 code=ISOALKLT) Reference Lab Testing (test 1 % 0-18 Performed at: [facility] LabCo code=ISOALKIT) [address] [id number] Director: Chico Suero MD, Phone: [phone] at: [facility] [address] [id number] Director: Chester Rider MD, Phone: [phone] [id number] 11:48:00 Test Item Value Reference Range Comments Chemistry (test code=TBILI) 0.7 mg/dL 0.2-1.2 Chemistry (test code=DBILI) 0.6 mg/dL 0.1-0.3 Chemistry (test code=TP) 5.9 g/dL 6.0-8.3 Chemistry (test code=ALB) 3.4 g/dL 3.5-5.0 Chemistry (test code=ALP) 635 U/L 40-150 Chemistry (test code=AST) 57 U/L 5-34 Chemistry (test code=ALT) 92 U/L 8-55 [id number] 06:08:00 Test Item Value Reference Range Comments [...] code=GLU-T) Chemistry (test code=CA) 8.5 mg/dL 7.8-10.44 Vaslftuay4637-14-35 06:06:00 Test Item Value Reference Range Comments Chemistry (test code=TBILI) 0.9 mg/dL 0.2-1.2 Chemistry (test code=DBILI) 0.7 mg/dL 0.1-0.3 Chemistry (test code=TP) 6.1 g/dL 6.0-8.3 Chemistry (test code=ALB) 3.5 g/dL 3.5-5.0 Chemistry (test code=ALP) 766 U/L 40-150 Chemistry (test code=AST) 100 U/L 5-34 Chemistry (test code=ALT) 129 U/L 8-55 [id number] 05:57:00 Test Item Value Reference Range Comments [...] 0.0-0.7 Hematology (test code=BASO#) 0.0 thou/uL 0.0-0.2 [id number] 05:55:00 Test Item Value Reference Range Comments Coagulation (test 13.5 SEC 12.0-14.7 code=PT-T) Coagulation (test 1.0 ATTENTION: READ code=INR) CAREFULLY -The recommended therapeutic ranges for oral anticoagulanttreatments are: Low Intensity: 1.5 - 2.0 Moderate Intensity: 2.0 - 3.0 High Intensity (1): 2.5 - 3.5 High Intensity (2): 3.0 - 4.0 CRITICAL: > 4.0 Anticoagulant? JFNOHvjbpbehh5609-66-15 05:36:00 Test Item Value Reference Range Comments [...] code=GLU-T) Chemistry (test code=CA) 8.9 mg/dL 7.8-10.44 Yaptdpukx3639-15-15 05:33:00 Test Item Value Reference Range Comments Chemistry (test code=TBILI) 0.9 mg/dL 0.2-1.2 Chemistry (test code=DBILI) 0.6 mg/dL 0.1-0.3 Chemistry (test code=TP) 6.8 g/dL 6.0-8.3 Chemistry (test code=ALB) 3.8 g/dL 3.5-5.0 Chemistry (test code=ALP) 864 U/L 40-150 Chemistry (test code=AST) 147 U/L 5-34 Chemistry (test code=ALT) 160 U/L 8-55 Edtmdisfqr9915-00-31 05:28:00 Test Item Value Reference Range Comments [...] code=BASO#) 0.1 thou/uL 0.0-0.2 Chemistry - Elizabeth Nrhrhpw1672-04-37 13:02:00 Test Item Value Reference Range Comments [...] NEW METHODOLOGY.Method: Enzyme Linked Fluorescent Immunoassay (Elizabeth)References: exsulin Elizabeth Package Inserts - Directions forUse, June, July 2016, New Screens. Qtdiknuua1652-91-15 05:00:00 Test Item Value Reference Range Comments Chemistry (test code=TBILI) 0.9 mg/dL 0.2-1.2 Chemistry (test code=DBILI) 0.6 mg/dL 0.1-0.3 Chemistry (test code=TP) 6.9 g/dL 6.0-8.3 Chemistry (test code=ALB) 3.9 g/dL 3.5-5.0 Chemistry (test code=ALP) 837 U/L 40-150 Chemistry (test code=AST) 117 U/L 5-34 Chemistry (test code=ALT) 144 U/L 8-55 [id number] 04:50:00 Test Item Value Reference Range Comments [...] code=GLU-T) Chemistry (test code=CA) 8.4 mg/dL 7.8-10.44 Smlykeemsk4787-67-67 04:39:00 Test Item Value Reference Range Comments [...] 0.0-0.7 Hematology (test code=BASO#) 0.0 thou/uL 0.0-0.2 [id number] 17:07:00 Test Item Value Reference Range Comments Chemistry (test code=IGG) 1032.00 mg/dL 552-1631 Qaetdawmn9016-36-89 17:07:00 Test Item Value Reference Range Comments Chemistry (test code=IGM) 215.00 mg/dL 33-293 Hosqnqrcns7831-54-50 00:50:00 Test Item Value Reference Range Comments [...] Negative Urine Source: Urine Clean CatchChemistry - Pouvjgqo0564-60-35 00:25:00 Test Item Value Reference Range Comments Chemistry - Specials (test code=THEPAIGM) Non-Reactive NonReactive Chemistry - Specials (test code=THBSAG) Non-Reactive S/CO NonReactive Chemistry - Specials (test code=INTHBCM) Non-Reactive NonReactive Chemistry - Specials (test code=INTHEPC) Non-Reactive NonReactive Nnyptljfw1414-21-44 22:12:00 Test Item Value Reference Range Comments [...] 5-34 Chemistry (test code=ALT) 196 U/L 8-55 [id number] 22:12:00 Test Item Value Reference Range Comments Chemistry (test code=LIP) 22 U/L 8-78 Pgqvejgpjm2929-50-10 21:50:00 Test Item Value Reference Range Comments [...] 0.0-0.7 Hematology (test code=BASO#) 0.1 thou/uL 0.0-0.2 [id number] 22:49:00 Test Item Value Reference Range Comments [...] 5-34 Chemistry (test code=ALT) 78 U/L 8-55 Gvccswzss6029-73-09 22:49:00 Test Item Value Reference Range Comments Chemistry (test code=LIP) 12 U/L 8-78 Rabbcuwach2807-09-95 22:24:00 Test Item Value Reference Range Comments [...] 0.0-0.7 Hematology (test code=BASO#) 0.0 thou/uL 0.0-0.2 Nubuxyruil0350-56-47 22:00:00 Test Item Value Reference Range Comments [...] code=UABLD) Negative Negative Urine Source: Urine Clean QaelpInjjovao7294-15-39 09:28:00 Test Item Value Reference Range Comments Accuchek (test code=ACU) 99 mg/dL 70-110 Tyrhljaekq9727-98-63 09:14:00 Test Item Value Reference Range Comments [...] code=UABLD) Negative Negative Urine Source: Urine Clean KoxaxGizooavunw4421-93-22 21:28:00 Test Item Value Reference Range Comments [...] code=UABLD) Negative Negative Urine Source: Urine Clean [id number] 21:09:00 Test Item Value Reference Range Comments [...] 5-34 Chemistry (test code=ALT) 95 U/L 8-55 Rgagvrito0230-08-17 21:09:00 Test Item Value Reference Range Comments Chemistry (test code=LIP) 39 U/L 8-78 [id number] 20:49:00 Test Item Value Reference Range Comments [...] 0.0-0.7 Hematology (test code=BASO#) 0.0 thou/uL 0.0-0.2 Arvihfqfak5846-67-01 21:34:00 Test Item Value Reference Range Comments [...] held fortwo weeks. Urine Source: Urine Clean DbmyjUximarmpfj8289-63-12 19:17:00 Test Item Value Reference Range Comments [...] (test code=UABLD) Negative Negative Urine Source: Urine LirewxFjfjxqcxa1172-36-52 18:48:00 Test Item Value Reference Range Comments [...] 5-34 Chemistry (test code=ALT) 84 U/L 8-55 [id number] 18:48:00 Test Item Value Reference Range Comments Chemistry (test code=JORGE) 53.0 U/L 25-125 Jfcobulgh2787-47-64 18:48:00 Test Item Value Reference Range Comments Chemistry (test code=LIP) 10 U/L 8-78 Wuthylnztu2346-03-67 18:19:00 Test Item Value Reference Range Comments [...] Hematology (test code=BASO#) 0.1 thou/uL 0.0-0.2 Culture, [id number] 10:22:00 Test Item Value Reference Range Comments Culture, Urine (test code=URC) NF Culture, Urine (test code=URC1) 10 MSF Gzqfcvbbp1072-30-96 17:38:00 Test Item Value Reference Range Comments Chemistry (test code=PHOS) 2.9 mg/dL 2.3-4.7 Cvpyfhedn9995-91-10 17:04:00 Test Item Value Reference Range Comments [...] 95 U/L 8-55 Chemistry - BNP, HgbA1c, CPEu6779-30-77 17:04:00 Test Item Value Reference Range Comments Chemistry - BNP, HgbA1c, 4.9 % 4.0-6.0 Therapeutic goals for glycemic PTHi (test code=CSKD1BB) control (ADA)Adults:- Goal of therapy: Less than 7.0% HbA1c- Action suggested: Greater than 8.0% IoB3kPkihgvcxv patients:- Toddlers and preschoolers: Less than 8.5% (but Greater than 7.5%)- School age (6-12 years): Less than 8%- Adolescents and young adults (13-19 years): Less than 7.5%Diagnosing diabetes (ADA)- HbA1c: Greater than or equal to 6.5% Values of 5.7 - 6.4% indicate HIGH risk for developing DiabetesInternational Expert Committee Report on the Role of the L7RIboay in the Diagnosis of Diabetes. Diabetes Care 2009July;32(7):1327-1334ADA, Diagnosis classification of diabetes mellitus.Diabetes Care 2010; 33 Suppl 1:S62 Cshdjkceg2311-46-47 16:59:00 Test Item Value Reference Range Comments Chemistry (test code=CRP) 1.16 mg/dL =or < 0.5 What test does the doctor want? C-REACTIVE PROTEIN (CRP)Ikyzfkaxma0347-44-09 16: 53:00 Test Item Value Reference Range [...] HPF None Seen Urine Source: Urine Clean KlgtnGydrspjrxp9386-37-22 16:46:00 Test Item Value Reference Range Comments [...] 0.0-0.7 Hematology (test code=BASO#) 0.1 thou/uL 0.0-0.2 Brdtkazgpf9956-70-01 21:59:00 Test Item Value Reference Range Comments [...] Urine Clean CatchSepsis - Lactic Acid >2 [id number] 23:59: 00 Test Item Value Reference Range Comments Sepsis - Lactic Acid >2 Additional Lactate testing will be performed Rflx (test code=ODVCQ7S) in 3 hrs according to the SepsisProtocol. [id number] 21:12:00 Test Item Value Reference Range Comments Chemistry (test code=JORGE) 59.0 U/L 25-125 Isqtaeezb1959-55-12 20:59:00 Test Item Value Reference Range Comments [...] 5-34 Chemistry (test code=ALT) 87 U/L 8-55 Qgorjeblb2240-65-00 20:59:00 Test Item Value Reference Range Comments Chemistry (test code=LIP) 32 U/L 8-78 Chemistry - Ooplgmm3491-36-45 20:59:00 Test Item Value Reference Range Comments Chemistry - Lactate (test code=LACTSEP-T) 2.1 mmol/L 0.5-2.2 Plltlmfwoi9995-42-48 20:43:00 Test Item Value Reference Range Comments [...] (test code=UABLD) Negative Negative Urine Source: Urine XiydvqBgxubdcjuc2435-32-00 20:37:00 Test Item Value Reference Range Comments [...]
[2018-08-20 21:56] LABS: Absolute Lymphocytes (CBC) 1.8 K/uL (0.7-4.9); Absolute Monocytes 0.5 K/uL (0.1-1.3); Basophils % 0.4 % (0-1.3); Eosinophils % 1.2 % (0-4.4); Hematocrit 41.2 % (36.0-45.0); Lymphocytes % 21.7 % (15.3-44.8); MPV 7.5 fL (7.6-11.3); RBC Red Blood Cell Count 4.86 M/uL (3.86-4.86)
[2018-08-20] MEDS ORDERED: NA CHLORIDE 0.9% 1,000 ML ONE (22:12)
[2018-08-20] MEDS ORDERED: PROMETHAZINE 25 MG/ML VIAL ONE (22:12)
[2018-08-20] MEDS ORDERED: MORPHINE 4 MG/ML SYR ONE ×2 (22:12→23:35)
[2018-08-20 22:27] LABS: ALT/SGPT 240 U/L (12-78); AST/SGOT 219 U/L (15-37); Albumin 4.4 g/dL (3.4-5.0); Alkaline Phosphatase 974 U/L (45-117); BUN Blood Urea Nitrogen 12 mg/dL (7-18); Bicarbonate 27 mmol/L (21-32); Bilirubin Direct 0.7 mg/dL (0-0.2); Glucose Level 95 mg/dL (74-106); Lipase 121 U/L (73-393); Protein, Total 9.7 g/dL (6.4-8.2); Sodium Level 137 mmol/L (136-145)
[2018-08-21] MEDS ORDERED: HYDRALAZINE HCL 20 MG/ML VIAL ONE (00:10)
[2018-08-21] MEDS ORDERED: cloNIDine HCl 0.1 MG TAB ONE (00:19)
--- NOTE | 2018-08-21 01:48 | ER ---
Nurse's Notes [facility] Name: Yessenia Aleman Age: 57 yrs Sex: Female : 1960 Arrival Date: 08/20/2018 Time: 18:37 Bed 15 Private MD: Diagnosis: Upper abdominal pain, unspecified;Abnormal results of liver function studies Presentation: 08/20 19:36 Presenting complaint: Patient states: Patient reports that she has been having aj1 abdominal pain and headache since last , reports that she was seen in this ER on Saturday for the same complaint, she had labs and a CT . She was discharged home with a Rx for Bentyl and Zofran and told to return to the ER if her pain got worse. Patient states that the medications are not working Patient also reports nausea and vomiting. States that she was going to set a follow up with Dr. Neumann, but they couldn't get her in until next week so she didn't make the appointment. Transition of care: patient was not received from another setting of care. Onset of symptoms was August 2017. Risk Assessment: Do you want to hurt yourself or someone else? Patient reports no desire to harm self or others. Initial Sepsis Screen: Does the patient meet any 2 criteria? No. Patient's initial sepsis screen is negative. Does the patient have a suspected source of infection? Yes: Acute abdominal pain. Care prior to arrival: None. 19:36 Method Of Arrival: Ambulatory aj1 19:36 Acuity: HOLLI 3 aj1 Triage Assessment: 19:43 General: Appears in no apparent distress. uncomfortable, Behavior is calm, cooperative, aj1 appropriate for age. Pain: Complains of pain in epigastric area Pain currently is 10 out of 10 on a pain scale. Neuro: Level of Consciousness is awake, alert, obeys commands, Oriented to person, place, time, situation. Neuro: Reports headache. Cardiovascular: Patient's skin is warm and dry. Respiratory: Airway is patent Respiratory effort is even, unlabored, Respiratory pattern is regular, symmetrical. GI: Reports diarrhea, nausea, vomiting. CUSTOMER SERVICE VOICE: 19:43 LMP N/A - Post-menopause aj1 Historical: - Allergies: 19:43 No Known Allergies; aj1 - Home Meds: 19:43 gabapentin 300 mg Oral cap 1 cap daily [Active]; Lexapro 20 mg Oral tab 1 tab [Active]; aj1 losartan 100 mg Oral tab 1 tab once daily [Active]; Steward 10-325 mg Oral tab 1 tab twice a day [Active]; Seroquel 300 mg Oral tab 1 tab once daily [Active]; Xanax 1 mg Oral tab 1 tab 3 times per day for Anxiety [Active]; - PMHx: 19:43 Anxiety; Arthritis; biliary chirrosis; biliary disease; CHF; Chronic Pancreatitis; aj1 Hypertension; Pancreatitis; Pneumonia; - PSHx: 19:43 bile duct stents; Cholecystectomy; r breast cyst; aj1 - Immunization history:: Flu vaccine is up to date. - Social history:: Smoking status: Patient/guardian denies using tobacco. - Ebola Screening: : Patient denies travel to an Ebola-affected area in the 21 days before illness onset. Screenin:25 Abuse screen: Denies threats or abuse. Nutritional screening: No deficits noted. jb4 Tuberculosis screening: No symptoms or risk factors identified. Fall Risk None identified. Assessment: 21:25 General: Appears in no apparent distress. uncomfortable, Behavior is calm, cooperative, jb4 appropriate for age. Pain: Complains of pain in epigastric area, right upper quadrant and left upper quadrant Pain radiates to anterior aspect of right lateral abdomen Pain currently is 10 out of 10 on a pain scale. Quality of pain is described as stabbing. Neuro: Level of Consciousness is awake, alert, obeys commands, Oriented to person, place, time, situation. Cardiovascular: Patient's skin is warm and dry. Respiratory: Airway is patent Respiratory effort is even, unlabored, Respiratory pattern is regular, symmetrical. GI: Abdomen is non-distended, obese, Bowel sounds present X 4 quads. Abd is soft X 4 quads Abdomen is tender to palpation in epigastric area, right upper quadrant and left upper quadrant Reports upper abdominal pain. : No signs and/or symptoms were reported regarding the genitourinary system. EENT: No signs and/or symptoms were reported regarding the EENT system. Derm: Skin is intact, Skin is pink, warm \T\ dry. Musculoskeletal: Circulation, motion, and sensation intact. 22:37 Reassessment: Patient appears in no apparent distress at this time. Patient and/or jb4 family updated on plan of care and expected duration. Pain level reassessed. Patient is alert, oriented x 3, equal unlabored respirations, skin warm/dry/pink. 23:45 Reassessment: Patient appears in no apparent distress at this time. Patient and/or jb4 family updated on plan of care and expected duration. Pain level reassessed. Patient is alert, oriented x 3, equal unlabored respirations, skin warm/dry/pink. Patient states feeling better. 08/21 00:54 Reassessment: Patient appears in no apparent distress at this time. Patient and/or jb4 family updated on plan of care and expected duration. Pain level reassessed. Patient is alert, oriented x 3, equal unlabored respirations, skin warm/dry/pink. 02:00 Reassessment: Patient appears in no apparent distress at this time. Patient and/or jb4 family updated on plan of care and expected duration. Pain level reassessed. Patient is alert, oriented x 3, equal unlabored respirations, skin warm/dry/pink. Pt ambulated from ED with a steady gate with . IV d/c'ed prior to discharge. Vital Signs: 08/20 19:43 BP 185 / 92; Pulse 78; Resp 18; Temp 97.8; Pulse Ox 98% on R/A; Weight 74.84 kg (R); aj1 Height 5 ft. 0 in. (152.40 cm) (R); Pain 10/10; 21:37 BP 117 / 118; Pulse 81; Resp 16; Pulse Ox 99% on R/A; jb4 22:30 BP 184 / 114; Pulse 74; Resp 16; Pulse Ox 100% on R/A; jb4 23:45 BP 192 / 110; Pulse 66; Resp 16; Pulse Ox 94% on R/A; jb4 08/21 00:00 BP 154 / 106; Pulse 73; Resp 16; Pulse Ox 97% on R/A; jb4 00:45 BP 188 / 114; Pulse 82; Resp 16; Pulse Ox 96% on R/A; jb4 01:56 BP 138 / 106; Pulse 82; Resp 16; Pulse Ox 96% on R/A; jb4 08/20 19:43 Body Mass Index 32.22 (74.84 kg, 152.40 cm) aj1 ED Course: 08/20 18:37 Patient arrived in ED. as 19:41 Triage completed. aj1 19:43 Arm band placed on Patient placed in an exam room, Patient notified of wait time. aj1 21:11 Severiano Whitley RN is Primary Nurse. jb4 21:18 Mah[facility] Galindo [facility]-C [facility]. kb 21:18 Rivas Arriaga MD is Attending Physician. kb 21:25 Patient has correct armband on for positive identification. Placed in gown. Bed in low jb4 position. Call light in reach. Side rails up X 1. Pulse ox on. NIBP on. 21:26 Initial lab(s) drawn, by me, sent to lab. Inserted saline lock: 22 gauge in right jb4 antecubital area, using aseptic technique. Blood collected. 21:26 Missed attempt(s): 22 gauge in left forearm. jb4 08/21 01:56 No provider procedures requiring assistance completed. IV discontinued, intact, jb4 bleeding controlled. Administered Medications: 08/20 22:06 Drug: NS 0.9% 1000 ml Route: IV; Rate: 1000 ml; Site: right antecubital; jb4 23:00 Follow up: Response: No adverse reaction; IV Status: Completed infusion; IV Intake: jb4 1000ml 22:07 Drug: Phenergan 12.5 mg Route: IVP; Site: right antecubital; jb4 22:30 Follow up: Response: No adverse reaction; Nausea is decreased jb4 22:11 Drug: morphine 4 mg Route: IVP; Site: right antecubital; jb4 22:41 Follow up: Response: No adverse reaction; Pain is decreased jb4 23:25 Drug: morphine 4 mg Route: IVP; Site: right antecubital; jb4 23:50 Follow up: Response: No adverse reaction; Pain is decreased jb4 08/21 00:03 Not Given (Physician Discretion): hydrALAZINE 5 mg IV at per protocol once kb 00:09 Drug: cloNIDine 0.1 mg Route: PO; jb4 01:00 Follow up: Response: No adverse reaction; Blood pressure is lowered jb4 01:49 Drug: Phenergan 12.5 mg Route: IVP; Site: right antecubital; jb4 02:09 Follow up: Response: No adverse reaction; Medication administered at discharge. jb4 01:50 Drug: Steward 10 mg-325 mg 1 tabs Route: PO; jb4 02:09 Follow up: Response: No adverse reaction; Medication administered at discharge. jb4 Intake: 08/20 23:00 IV: 1000ml; Total: 1000ml. jb4 Outcome: 08/21 01:48 Discharge ordered by . kb 01:56 Discharged to home ambulatory, with family. jb4 01:56 Condition: stable 01:56 Discharge instructions given to patient, family, Instructed on discharge instructions, follow up and referral plans. medication usage, Demonstrated understanding of instructions, follow-up care, medications, Prescriptions given X 1. 02:09 Patient left the ED. jb4 Signatures: Mahsa Galindo, PROFESSIONAL NURSE-C PROFESSIONAL NURSE-CkMeena Moreira, RN RN aj1 Stephanie Messina as Severiano Whitley, RN RN jb4
[2018-08-21] MEDS ORDERED: PROMETHAZINE 25 MG/ML VIAL ONE (01:49)
[2018-08-21] MEDS ORDERED: HYDROCODONE/APAP 10/325 TAB ONE (01:49)
--- NOTE | 2018-08-21 01:49 | EDPHYS ---
Physician Documentation [facility] Name: Yessenia Aleman Age: 57 yrs Sex: Female : 1960 Arrival Date: 08/20/2018 Time: 18:37 Bed 15 Private MD: ED Physician Rivas Arriaga HPI: 08/21 01:44 This 57 yrs old Female presents to ER via Ambulatory with complaints of kb Epigastric Pain, Headache. 01:44 The patient presents with abdominal pain in the upper abdomen. Onset: The kb symptoms/episode began/occurred 5 day(s) ago. The symptoms do not radiate. Associated signs and symptoms: Pertinent positives: nausea and vomiting. The symptoms are described as constant, sharp. Modifying factors: The symptoms are alleviated by nothing, the symptoms are aggravated by nothing. Severity of pain: At its worst the pain was moderate in the emergency department the pain is unchanged. The patient has experienced similar episodes in the past, chronically. The patient has been recently seen at the [facility] Emergency Department, this week, for similar complaints labs were performed, CT scan was performed. Pt presents with upper abd pain that started approx 5 days ago and has gotten worse. Reports she has had this pain several times in the past. Has had several biliary stents placed and removed for this. . 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 N/A - Post-menopause aj1 Historical: - Allergies: 19:43 No Known Allergies; aj1 - Home Meds: 19:43 gabapentin 300 mg Oral cap 1 cap daily [Active]; Lexapro 20 mg Oral tab 1 tab [Active]; aj1 losartan 100 mg Oral tab 1 tab once daily [Active]; [place] 10-325 mg Oral tab 1 tab twice a day [Active]; Seroquel 300 mg Oral tab 1 tab once daily [Active]; Xanax 1 mg Oral tab 1 tab 3 times per day for Anxiety [Active]; - PMHx: 19:43 Anxiety; Arthritis; biliary chirrosis; biliary disease; CHF; Chronic Pancreatitis; aj1 Hypertension; Pancreatitis; Pneumonia; - PSHx: 19:43 bile duct stents; Cholecystectomy; r breast cyst; aj1 - Immunization history:: Flu vaccine is up to date. - Social history:: Smoking status: Patient/guardian denies using tobacco. - Ebola Screening: : Patient denies travel to an Ebola-affected area in the 21 days before illness onset. ROS: 08/21 01:20 Constitutional: Negative for fever, chills, and weight loss, ENT: Negative for injury, kb pain, and discharge, Neck: Negative for injury, pain, and swelling, Cardiovascular: Negative for chest pain, palpitations, and edema, Respiratory: Negative for shortness of breath, cough, wheezing, and pleuritic chest pain, Back: Negative for injury and pain, MS/Extremity: Negative for injury and deformity, Skin: Negative for injury, rash, and discoloration, Neuro: Negative for headache, weakness, numbness, tingling, and seizure. Abdomen/GI: Positive for abdominal pain, nausea and vomiting, Negative for diarrhea, constipation, abdominal cramps, abdominal distension, anorexia. Exam: 01:43 Constitutional: This is a well developed, well nourished patient who is awake, alert, kb and in no acute distress. Head/Face: Normocephalic, atraumatic. Chest/axilla: Normal chest wall appearance and motion. Nontender with no deformity. No lesions are appreciated. Cardiovascular: Regular rate and rhythm with a normal S1 and S2. No gallops, murmurs, or rubs. Normal PMI, no JVD. No pulse deficits. Respiratory: Lungs have equal breath sounds bilaterally, clear to auscultation and percussion. No rales, rhonchi or wheezes noted. No increased work of breathing, no retractions or nasal flaring. Back: No spinal tenderness. No costovertebral tenderness. Full range of motion. Skin: Warm, dry with normal turgor. Normal color with no rashes, no lesions, and no evidence of cellulitis. MS/ Extremity: Pulses equal, no cyanosis. Neurovascular intact. Full, normal range of motion. Neuro: Awake and alert, GCS 15, oriented to person, place, time, and situation. Cranial nerves II-XII grossly intact. Motor strength 5/5 in all extremities. Sensory grossly intact. Cerebellar exam normal. Normal gait. 01:43 Abdomen/GI: Inspection: abdomen appears normal, Bowel sounds: normal, in all quadrants, Palpation: soft, in all quadrants, moderate abdominal tenderness, in the right upper quadrant and left upper quadrant. Vital Signs: 08/20 19:43 BP 185 / 92; Pulse 78; Resp 18; Temp 97.8; Pulse Ox 98% on R/A; Weight 74.84 kg (R); aj1 Height 5 ft. 0 in. (152.40 cm) (R); Pain 10/10; 21:37 BP 117 / 118; Pulse 81; Resp 16; Pulse Ox 99% on R/A; jb4 22:30 BP 184 / 114; Pulse 74; Resp 16; Pulse Ox 100% on R/A; jb4 23:45 BP 192 / 110; Pulse 66; Resp 16; Pulse Ox 94% on R/A; jb4 08/21 00:00 BP 154 / 106; Pulse 73; Resp 16; Pulse Ox 97% on R/A; jb4 00:45 BP 188 / 114; Pulse 82; Resp 16; Pulse Ox 96% on R/A; jb4 01:56 BP 138 / 106; Pulse 82; Resp 16; Pulse Ox 96% on R/A; jb4 08/20 19:43 Body Mass Index 32.22 (74.84 kg, 152.40 cm) aj1 MDM: 08/20 21:19 Patient medically screened. kb 08/21 01:18 Data reviewed: vital signs, nurses notes. Data interpreted: Pulse oximetry: on room air kb is 96 %. Interpretation: normal. 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 01:47 ED course: Lipase decreased since last visit. Liver enzymes chronically elevated. . kb 08/20 21:19 Order name: Basic Metabolic Panel kb 08/20 21:19 Order name: CBC with Diff; Complete Time: 22:06 kb 08/20 21:19 Order name: Hepatic Function; Complete Time: 22:36 kb 08/20 21:19 Order name: Lipase; Complete Time: 22:36 kb 08/20 21:19 Order name: Basic Metabolic Panel; Complete Time: 22:36 EDMS 08/20 21:19 Order name: IV Saline Lock; Complete Time: 21:55 kb 08/20 21:19 Order name: Labs collected and sent; Complete Time: 22:00 kb Administered Medications: 08/20 22:06 Drug: NS 0.9% 1000 ml Route: IV; Rate: 1000 ml; Site: right antecubital; jb4 23:00 Follow up: Response: No adverse reaction; IV Status: Completed infusion; IV Intake: jb4 1000ml 22:07 Drug: Phenergan 12.5 mg Route: IVP; Site: right antecubital; jb4 22:30 Follow up: Response: No adverse reaction; Nausea is decreased jb4 22:11 Drug: morphine 4 mg Route: IVP; Site: right antecubital; jb4 22:41 Follow up: Response: No adverse reaction; Pain is decreased jb4 23:25 Drug: morphine 4 mg Route: IVP; Site: right antecubital; jb4 23:50 Follow up: Response: No adverse reaction; Pain is decreased 4 08/21 00:03 Not Given (Physician Discretion): hydrALAZINE 5 mg IV at per protocol once kb 00:09 Drug: cloNIDine 0.1 mg Route: PO; jb4 01:00 Follow up: Response: No adverse reaction; Blood pressure is lowered jb4 01:49 Drug: Phenergan 12.5 mg Route: IVP; Site: right antecubital; jb4 02:09 Follow up: Response: No adverse reaction; Medication administered at discharge. jb4 01:50 Drug: [place] 10 mg-325 mg 1 tabs Route: PO; jb4 02:09 Follow up: Response: No adverse reaction; Medication administered at discharge. 4 Disposition: 02:12 Co-signature as Attending Physician, Rivas Arriaga MD. Disposition: 08/21/18 01:48 Discharged to Home. Impression: Upper abdominal pain, unspecified, Abnormal results of liver function studies. - Condition is Stable. - Discharge Instructions: Abdominal Pain, Adult, Hdyt-yh-Gkqs. - Prescriptions for promethazine 25 mg Oral Tablet - take 1 tablet by ORAL route every 8 hours As needed; 20 tablet. - Medication Reconciliation Form, Thank You Letter, Antibiotic Education, Prescription Opioid Use form. - Follow up: Emergency Department; When: As needed; Reason: Worsening of condition. Follow up: Private Physician; When: 2 - 3 days; Reason: Recheck today's complaints, Continuance of care, Re-evaluation by your physician. Signatures: Dispatcher [employer] EDMahsa Mcallister, 3D ARTIST-C 3D ARTIST-Meena Bello RN RN aj1 Severiano Whitley RN RN jb4 Rivas Arriaga MD MD gs Corrections: (The following items were deleted from the chart) 02:09 01:48 08/21/2018 01:48 Discharged to Home. Impression: Upper abdominal pain, jb4 unspecified; Abnormal results of liver function studies. Condition is Stable. Forms are Medication Reconciliation Form, Thank You Letter, Antibiotic Education, Prescription Opioid Use. Follow up: Emergency Department; When: As needed; Reason: Worsening of condition. Follow up: Private Physician; When: 2 - 3 days; Reason: Recheck today's complaints, Continuance of care, Re-evaluation by your physician. kb
[2018-08-21 02:15] VITALS: TEMP 97.8
[2018-08-21 02:21] VITALS: O2SAT 96
[2018-08-21 02:22] VITALS: BP 138/106
== END 2018-08-21 02:09 | disposition home or self-care (01) ==
LOC: ER 18:35
DX: R10.13 Epigastric pain (principal); R94.5 Abnormal results of liver function studies; F41.9 Anxiety disorder, unspecified; I11.0 Hypertensive heart disease with heart failure; I50.9 Heart failure, unspecified; Z79.899 Other long term (current) drug therapy
CPT/HCPCS: 36415; 80048; 80076; 83690; 85025; 96361; 96374; 96375; 99284; J0360; J2550; J7030

== ENCOUNTER 2018-09-13 12:17 | Emergency (ER) | payer OTHER ==
--- OUTSIDE RECORDS SUMMARY | 2018-09-13 12:19 | XMS REPORT ---
[...] Status Dosage System Date Date Gabapentin ND 39718692419 300 MG Orally July Active 1 capsule Once a day 2018 Diazepam ND 18123512381 5 MG Orally July Active 1 tablet Once a day prn 2018 as needed panic attacks Phenergan [facility] [address]-04 25mg Po Q 12 Active one tablet hours Robaxin-750 ND 38721891303 750 MG Orally Active 1 tablet every 4 hrs Seroquel XR ND 78393434875 300 MG Orally Active 1 tablet Once a day in the evening Lexapro ND 28660743389 20 MG Orally Active 1 tablet Once a day Alprazolam ND 30628945264 1 MG Orally Active 1 tablet Twice a day Losartan ND 90024838686 100 MG Orally Active 1 tablet Potassium Once a day Results No Known Results Summary Purpose eClinicalWorks Submission
--- OUTSIDE RECORDS SUMMARY | 2018-09-13 12:22 | XMS REPORT ---
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 [id number] 22:53:00 Test Item Value Reference Range Comments [...] 0-3 Hyaline code=UACAST) LPF Urine Source: Urine [id number] SURGICAL PATHOLOGY, LEVEL [id number] 14:31:00-- [address] [address] Laboratory Printed: 07/09/[address] [place] [address] DAEMPathology Page: 1 Patient: ZEKE ROMERO Birthdate: 1960 Age/Sex: 56/F Spec#: [id number]: HERMES SALAZAR Specimen Date: 07/08/17 [...] Pathologist: Kelvin Conway Entered by:07/09/17 - 1430 [facility] PROCEDURES: 71146, 68437/4 Patient: ZEKE ROMERO ReLoc: T4-A MR#: [id number] CONTINUED ON NEXT PAGE Dis: 07/09/17ta: DIS IN [address] [address] Laboratory Printed: 07/09/17 1431 [facility] DAEMPathology Fax: Page: 2 Patient: ZEKE ROMERO [id number] (Continued) GROSS DESCRIPTION A. LIVER BIOPSY LEFT [...] by: DANII SHAHID Entered by:07/08/17 - 1316 [facility].YGP MICROSCOPIC DESCRIPTION A microscopic examination was performed to arrive at the diagnostic conclusion reported. Signed (Electronically Signed) Kelvin August 15 Patient: ZEKE ROMERO Re07/03/17Loc: T4-A MR#: [id number] END OF REPORT Dis: 07/09/18Sta: DIS [id number] 05:13:00 Test Item Value Reference Range Comments [...] (test code=ALT) 75 U/L 8-55 Reference Lab [id number] 04:14:00 Test Item Value Reference Range Comments Reference Lab Testing 10 U/mL 0-35 Laurent ECLIA methodologyPerformed at: (test iono=JO144) - [facility] [address] [place], [place] [id number] Director: Chico Suero MD, Phone: [phone] Reference Lab Hdoxveh8060-01-57 16:14:00 Test Item Value Reference Range Comments Reference Lab Testing (test 128.5 Units 0.0-20.0 code=MARLON) Negative 0.0 - 20.0 Equivocal 20.1 - 24.9 Positive >24.9Mitochondrial (M2) Antibodies are found in 90-96% ofpatients with primary biliary cirrhosis.Performed at: [facility] [id number] Director: Chester Rider MD, Phone: [phone] Reference Lab Hufvjus3047-09-05 16:14:00 Test Item Value Reference Range Comments [...] up testing of positive sera with both AR-3 and MPO-ANCA enzyme immunoassays. As many as 5% serumsamples are positive only by EIA. Ref. AM J Clin Gyxwnw7079;111:507-513. Reference Lab Testing <1:20 titer Neg:<1:20 The atypical pANCA pattern has (test code=ATANCA) been observed in asignificant percentage of patients with ulcerative colitis,primary sclerosing cholangitis and autoimmune hepatitis.Performed at: [facility] [id number] Director: Chester Rider MD, Phone: [phone] Eyignpnzq2309-16-27 05:12:00 Test Item Value Reference Range Comments [...] (test 86 U/L 8-55 code=ALT) Reference Lab [id number] 22:07:00 Test Item Value Reference Range Comments Reference Lab Testing (test 785 IU/L 39-117 code=ISOALKT) Reference Lab Testing (test 25 % 14-68 code=ISOALKBT) Reference Lab Testing (test 74 % 18-85 code=ISOALKLT) Reference Lab Testing (test 1 % 0-18 Performed at: - [facility] code=ISOALKIT) [address] [id number] Director: Chico Suero MD, Phone: [phone] at: [facility] [address] [id number] Director: Chester Rider MD, Phone: [phone] Ggbjnfxox4819-40-68 11:48:00 Test Item Value Reference Range Comments Chemistry (test code=TBILI) 0.7 mg/dL 0.2-1.2 Chemistry (test code=DBILI) 0.6 mg/dL 0.1-0.3 Chemistry (test code=TP) 5.9 g/dL 6.0-8.3 Chemistry (test code=ALB) 3.4 g/dL 3.5-5.0 Chemistry (test code=ALP) 635 U/L 40-150 Chemistry (test code=AST) 57 U/L 5-34 Chemistry (test code=ALT) 92 U/L 8-55 [id number] 06:08:00 Test Item Value Reference Range Comments [...] code=GLU-T) Chemistry (test code=CA) 8.5 mg/dL 7.8-10.44 Dbyvznjcg2299-53-25 06:06:00 Test Item Value Reference Range Comments Chemistry (test code=TBILI) 0.9 mg/dL 0.2-1.2 Chemistry (test code=DBILI) 0.7 mg/dL 0.1-0.3 Chemistry (test code=TP) 6.1 g/dL 6.0-8.3 Chemistry (test code=ALB) 3.5 g/dL 3.5-5.0 Chemistry (test code=ALP) 766 U/L 40-150 Chemistry (test code=AST) 100 U/L 5-34 Chemistry (test code=ALT) 129 U/L 8-55 Kdgjwlcjlm4698-83-33 05:57:00 Test Item Value Reference Range Comments [...] 0.0-0.7 Hematology (test code=BASO#) 0.0 thou/uL 0.0-0.2 Clnjjxfiano0728-48-56 05:55:00 Test Item Value Reference Range Comments Coagulation (test 13.5 SEC 12.0-14.7 code=PT-T) Coagulation (test 1.0 ATTENTION: READ code=INR) CAREFULLY -The recommended therapeutic ranges for oral anticoagulanttreatments are: Low Intensity: 1.5 - 2.0 Moderate Intensity: 2.0 - 3.0 High Intensity (1): 2.5 - 3.5 High Intensity (2): 3.0 - 4.0 CRITICAL: > 4.0 Anticoagulant? [id number] 05:36:00 Test Item Value Reference Range Comments [...] code=GLU-T) Chemistry (test code=CA) 8.9 mg/dL 7.8-10.44 Uprexbcxe1542-96-14 05:33:00 Test Item Value Reference Range Comments Chemistry (test code=TBILI) 0.9 mg/dL 0.2-1.2 Chemistry (test code=DBILI) 0.6 mg/dL 0.1-0.3 Chemistry (test code=TP) 6.8 g/dL 6.0-8.3 Chemistry (test code=ALB) 3.8 g/dL 3.5-5.0 Chemistry (test code=ALP) 864 U/L 40-150 Chemistry (test code=AST) 147 U/L 5-34 Chemistry (test code=ALT) 160 U/L 8-55 [id number] 05:28:00 Test Item Value Reference Range Comments [...] code=BASO#) 0.1 thou/uL 0.0-0.2 Chemistry - Elizabeth Cxheshe1272-48-14 13:02:00 Test Item Value Reference Range Comments [...] NEW METHODOLOGY.Method: Enzyme Linked Fluorescent Immunoassay (Elizabeth)References: [employer] Elizabeth Package Inserts - Directions for, June, July 2016, [place]. Mhwoqrdbb7519-78-45 05:00:00 Test Item Value Reference Range Comments Chemistry (test code=TBILI) 0.9 mg/dL 0.2-1.2 Chemistry (test code=DBILI) 0.6 mg/dL 0.1-0.3 Chemistry (test code=TP) 6.9 g/dL 6.0-8.3 Chemistry (test code=ALB) 3.9 g/dL 3.5-5.0 Chemistry (test code=ALP) 837 U/L 40-150 Chemistry (test code=AST) 117 U/L 5-34 Chemistry (test code=ALT) 144 U/L 8-55 Jrzhhifxs0511-08-59 04:50:00 Test Item Value Reference Range Comments [...] code=GLU-T) Chemistry (test code=CA) 8.4 mg/dL 7.8-10.44 Olmehwdvdr0799-83-32 04:39:00 Test Item Value Reference Range Comments [...] 0.0-0.7 Hematology (test code=BASO#) 0.0 thou/uL 0.0-0.2 Sbqaxwicz3575-14-11 17:07:00 Test Item Value Reference Range Comments Chemistry (test code=IGG) 1032.00 mg/dL 552-1631 Jeusaaavv9299-71-61 17:07:00 Test Item Value Reference Range Comments Chemistry (test code=IGM) 215.00 mg/dL 33-293 Oaucghkirf7683-29-43 00:50:00 Test Item Value Reference Range Comments [...] Negative Urine Source: Urine Clean CatchChemistry - Byczfcqe5761-62-46 00:25:00 Test Item Value Reference Range Comments Chemistry - Specials (test code=THEPAIGM) Non-Reactive NonReactive Chemistry - Specials (test code=THBSAG) Non-Reactive S/CO NonReactive Chemistry - Specials (test code=INTHBCM) Non-Reactive NonReactive Chemistry - Specials (test code=INTHEPC) Non-Reactive NonReactive [id number] 22:12:00 Test Item Value Reference Range Comments [...] 5-34 Chemistry (test code=ALT) 196 U/L 8-55 Njetqvezh1136-77-61 22:12:00 Test Item Value Reference Range Comments Chemistry (test code=LIP) 22 U/L 8-78 Jmkapsrhrg8520-70-68 21:50:00 Test Item Value Reference Range Comments [...] 0.0-0.7 Hematology (test code=BASO#) 0.1 thou/uL 0.0-0.2 Duvjsbcmd9549-00-92 22:49:00 Test Item Value Reference Range Comments [...] 5-34 Chemistry (test code=ALT) 78 U/L 8-55 Djckfvyiu5740-18-14 22:49:00 Test Item Value Reference Range Comments Chemistry (test code=LIP) 12 U/L 8-78 Rjrfnfqsrc2519-51-28 22:24:00 Test Item Value Reference Range Comments [...] 0.0-0.7 Hematology (test code=BASO#) 0.0 thou/uL 0.0-0.2 Jejvrgpjel7023-96-18 22:00:00 Test Item Value Reference Range Comments [...] code=UABLD) Negative Negative Urine Source: Urine Clean AjiuaEdtijwwb7849-90-07 09:28:00 Test Item Value Reference Range Comments Accuchek (test code=ACU) 99 mg/dL 70-110 [id number] 09:14:00 Test Item Value Reference Range Comments [...] code=UABLD) Negative Negative Urine Source: Urine Clean PhcotNunayltkdm2475-15-41 21:28:00 Test Item Value Reference Range Comments [...] code=UABLD) Negative Negative Urine Source: Urine Clean EfoqrVaohuacxk8559-73-51 21:09:00 Test Item Value Reference Range Comments [...] 5-34 Chemistry (test code=ALT) 95 U/L 8-55 Ewxuosqpo7237-99-25 21:09:00 Test Item Value Reference Range Comments Chemistry (test code=LIP) 39 U/L 8-78 [id number] 20:49:00 Test Item Value Reference Range Comments [...] 0.0-0.7 Hematology (test code=BASO#) 0.0 thou/uL 0.0-0.2 [id number] 21:34:00 Test Item Value Reference Range Comments [...] held fortwo weeks. Urine Source: Urine Clean ZnfuhZhzgxijmso1703-42-02 19:17:00 Test Item Value Reference Range Comments [...] (test code=UABLD) Negative Negative Urine Source: Urine KcuhtkFdgduwddc9737-76-22 18:48:00 Test Item Value Reference Range Comments [...] 5-34 Chemistry (test code=ALT) 84 U/L 8-55 Yjejqelzg9429-80-25 18:48:00 Test Item Value Reference Range Comments Chemistry (test code=JORGE) 53.0 U/L 25-125 Pubikfque9528-51-27 18:48:00 Test Item Value Reference Range Comments Chemistry (test code=LIP) 10 U/L 8-78 Dvljehwuap5188-25-36 18:19:00 Test Item Value Reference Range Comments [...] Hematology (test code=BASO#) 0.1 thou/uL 0.0-0.2 Culture, [id number] 10:22:00 Test Item Value Reference Range Comments Culture, Urine (test code=URC) NF Culture, Urine (test code=URC1) 10 MSF Kkvyhvnvn9298-07-42 17:38:00 Test Item Value Reference Range Comments Chemistry (test code=PHOS) 2.9 mg/dL 2.3-4.7 Oxbcqyaha7244-36-29 17:04:00 Test Item Value Reference Range Comments [...] 95 U/L 8-55 Chemistry - BNP, HgbA1c, [id number] 17:04:00 Test Item Value Reference Range Comments Chemistry - BNP, HgbA1c, 4.9 % 4.0-6.0 Therapeutic goals for glycemic PTHi (test code=JRAI9PU) control (ADA)Adults:- Goal of therapy: Less than 7.0% HbA1c- Action suggested: Greater than 8.0% NdY3sHzpandyns patients:- Toddlers and preschoolers: Less than 8.5% (but Greater than 7.5%)- School age (6-12 years): Less than 8%- Adolescents and young adults (13-19 years): Less than 7.5%Diagnosing diabetes (ADA)- HbA1c: Greater than or equal to 6.5% Values of 5.7 - 6.4% indicate HIGH risk for developing DiabetesInternational Expert Committee Report on the Role of the B6RPunsj in the Diagnosis of Diabetes. Diabetes Care 2009July;32(7):1327-1334ADA, Diagnosis classification of diabetes mellitus.Diabetes Care 2010; 33 Suppl 1:S62 Gukfigvvn7836-64-68 16:59:00 Test Item Value Reference Range Comments Chemistry (test code=CRP) 1.16 mg/dL =or < 0.5 What test does the doctor want? C-REACTIVE PROTEIN (CRP)Gasvmasehw7806-93-28 16: 53:00 Test Item Value Reference Range [...] HPF None Seen Urine Source: Urine Clean NnstuAfpjcsansz0515-05-08 16:46:00 Test Item Value Reference Range Comments [...] 0.0-0.7 Hematology (test code=BASO#) 0.1 thou/uL 0.0-0.2 [id number] 21:59:00 Test Item Value Reference Range Comments [...] Urine Clean CatchSepsis - Lactic Acid >2 [id number] 23:59: 00 Test Item Value Reference Range Comments Sepsis - Lactic Acid >2 Additional Lactate testing will be performed Rflx (test code=EHJWM1C) in 3 hrs according to the SepsisProtocol. Dzmjrnlew1612-10-50 21:12:00 Test Item Value Reference Range Comments Chemistry (test code=JORGE) 59.0 U/L 25-125 [id number] 20:59:00 Test Item Value Reference Range Comments [...] 5-34 Chemistry (test code=ALT) 87 U/L 8-55 Ukshqadva0816-26-98 20:59:00 Test Item Value Reference Range Comments Chemistry (test code=LIP) 32 U/L 8-78 Chemistry - Muixtlq5351-50-21 20:59:00 Test Item Value Reference Range Comments Chemistry - Lactate (test code=LACTSEP-T) 2.1 mmol/L 0.5-2.2 [id number] 20:43:00 Test Item Value Reference Range Comments [...] (test code=UABLD) Negative Negative Urine Source: Urine ThqgkkPvykbzvgcv0927-97-74 20:37:00 Test Item Value Reference Range Comments [...]
[2018-09-13] MEDS ORDERED: ONDANSETRON 4 MG/2 ML VIAL ONE (14:17)
[2018-09-13] MEDS ORDERED: MORPHINE 4 MG/ML SYR ONE ×2 (14:17→16:42)
[2018-09-13] MEDS ORDERED: NA CHLORIDE 0.9% 1,000 ML ONE (14:17)
[2018-09-13 14:18] LABS: Absolute Lymphocytes (CBC) 0.9 K/uL (0.7-4.9); Absolute Monocytes 0.3 K/uL (0.1-1.3); Basophils % 0.4 % (0-1.3); Eosinophils % 1.4 % (0-4.4); Hematocrit 35.4 % (36.0-45.0); Lymphocytes % 14.6 % (15.3-44.8); MPV 7.9 fL (7.6-11.3); Monocytes % 5.4 % (3.3-12.3); RBC Red Blood Cell Count 4.13 M/uL (3.86-4.86)
[2018-09-13 14:28] LABS: ALT/SGPT 110 U/L (12-78); AST/SGOT 97 U/L (15-37); Alkaline Phosphatase 758 U/L (45-117); BUN Blood Urea Nitrogen 13 mg/dL (7-18); Bicarbonate 27 mmol/L (21-32); Bilirubin Direct 0.8 mg/dL (0-0.2); Glucose Level 101 mg/dL (74-106); Lipase 146 U/L (73-393); Potassium 4.8 mmol/L (3.5-5.1); Protein, Total 8.4 g/dL (6.4-8.2); Sodium Level 139 mmol/L (136-145)
--- NOTE | 2018-09-13 15:42 | RAD REPORT ---
EXAM DESCRIPTION: CT - Abdomen Pelvis Wo Contrast - 09/13/2018 3:32 pm CLINICAL HISTORY: Abdominal pain. ABD PAIN COMPARISON: Abdomen Pelvis W Contrast dated 08/17/2018 TECHNIQUE: CT imaging of the abdomen and pelvis was performed without contrast. Solid organ, bowel a nd vascular assessment is limited due to lack of IV and oral contrast. All CT scans are performed using dose optimization technique as appropriate and may include automated exposure control or mA/KV adjustment according to patient size. FINDINGS: The lower lung lantigua are clear.Cholecystectomy clips. The liver, spleen, pancreas, adrenal glands and kidneys are within normal limits for a limited non-co ntrast examination. No bowel obstruction, free air, free fluid or abscess. Appendectomy. The osseous structures are within normal limits. IMPRESSION: No acute intra-abdominal or pelvic findings. A limited non-contrast examination was performed as detailed.
--- NOTE | 2018-09-13 17:28 | EDPHYS ---
Physician Documentation [facility] Name: Yessenia Aleman Age: 57 yrs Sex: Female : 1960 Arrival Date: 09/13/2018 Time: 12:19 Bed 24 Private MD: ED Physician Matthew Magallon HPI: 09/13 14:07 This 57 yrs old Female presents to ER via Ambulatory with complaints of Abd kdr Pain > 50 y/o, Back Pain. 14:10 The patient presents with abdominal pain in the epigastric area, in the upper abdomen, kdr in the right upper quadrant. Onset: The symptoms/episode began/occurred gradually, 2 day(s) ago. The symptoms radiate to right back. Associated signs and symptoms: Pertinent positives: nausea, Pertinent negatives: chest pain, constipation, diarrhea, dysuria, fever, headache, hematuria, palpitations, shortness of breath, vaginal discharge, vomiting, vomiting blood. The symptoms are described as achy, crampy, waxing/waning. Modifying factors: The symptoms are alleviated by nothing, the symptoms are aggravated by coughing, breathing deeply, movement. Severity of pain: At its worst the pain was moderate severe incapacitating just prior to arrival, in the emergency department the pain is unchanged. The patient has experienced similar episodes in the past, multiple times. The patient has not recently seen a physician. 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 - Social history:: Smoking status: Patient/guardian denies using tobacco. - Ebola Screening: : No symptoms or risks identified at this time. ROS: 14:10 Constitutional: Negative for fever, chills, and weight loss, Eyes: Negative for injury, kdr pain, redness, and discharge, ENT: Negative for injury, pain, and discharge, Neck: Negative for injury, pain, and swelling, Cardiovascular: Negative for chest pain, palpitations, and edema, Respiratory: Negative for shortness of breath, cough, wheezing, and pleuritic chest pain, Back: Negative for injury and pain, : Negative for injury, bleeding, discharge, and swelling, MS/Extremity: Negative for injury and deformity, Skin: Negative for injury, rash, and discoloration, Neuro: Negative for headache, weakness, numbness, tingling, and seizure activity. Psych: Negative for depression, anxiety, suicide ideation, homicidal ideation, and hallucinations, Allergy/Immunology: Negative for hives, rash, and allergies, Endocrine: Negative for neck swelling, polydipsia, polyuria, polyphagia, and marked weight changes, Hematologic/Lymphatic: Negative for swollen nodes, abnormal bleeding, and unusual bruising. 14:10 Abdomen/GI: Positive for abdominal pain, nausea, anorexia, Negative for Exam: 14:14 Constitutional: This is a well developed, well nourished patient who is awake, alert, kdr and in moderate distress. Head/Face: Normocephalic, atraumatic. Eyes: Pupils equal round and reactive to light, extra-ocular motions intact. Lids and lashes normal. Conjunctiva and sclera are non-icteric and not injected. Cornea within normal limits. Periorbital areas with no swelling, redness, or edema. Neck: Trachea midline, no thyromegaly or masses palpated, and no cervical lymphadenopathy. Supple, full range of motion without nuchal rigidity, or vertebral point tenderness. No Meningismus. Chest/axilla: Normal chest wall appearance and motion. Nontender with no deformity. No lesions are appreciated. Cardiovascular: Regular rate and rhythm with a normal S1 and S2. No gallops, murmurs, or rubs. Normal PMI, no JVD. No pulse deficits. Respiratory: Lungs have equal breath sounds bilaterally, clear to auscultation and percussion. No rales, rhonchi or wheezes noted. No increased work of breathing, no retractions or nasal flaring. Back: No spinal tenderness. No costovertebral tenderness. Full range of motion. Skin: Warm, dry with normal turgor. Normal color with no rashes, no lesions, and no evidence of cellulitis. MS/ Extremity: Pulses equal, no cyanosis. Neurovascular intact. Full, normal range of motion. Neuro: Awake and alert, GCS 15, oriented to person, place, time, and situation. Cranial nerves II-XII grossly intact. Motor strength 5/5 in all extremities. Sensory grossly intact. Cerebellar exam normal. Normal gait. Psych: Awake, alert, with orientation to person, place and time. Behavior, mood, and affect are within normal limits. 14:14 Abdomen/GI: Inspection: obese Bowel sounds: diminished, in all quadrants, Palpation: soft, mild abdominal tenderness, in the right lower quadrant and left lower quadrant, moderate abdominal tenderness, in the right upper quadrant and left upper quadrant, mass, is not appreciated, rebound tenderness, is not appreciated, voluntary guarding, involuntary guarding, is not appreciated. Vital Signs: 12:32 BP 193 / 119; Pulse 84; Resp 22; Temp 97.7(O); Pulse Ox 100% ; Weight 79.38 kg; Height sv 5 ft. 0 in. (152.40 cm); Pain 10/10; 14:36 BP 186 / 96; Pulse 74; Resp 16; Temp 98.1; Pulse Ox 97% ; lt1 16:43 BP 170 / 119; Pulse 75; Resp 17 S; Pulse Ox 97% on 2 lpm NC; ca1 17:23 BP 176 / 84; Pulse 73; Resp 17 S; Temp 98.1(O); Pulse Ox 98% on R/A; ca1 18:10 BP 173 / 110; Pulse 72; Resp 17 S; Temp 98(O); Pulse Ox 97% on R/A; ca1 18:30 BP 171 / 102; Pulse 73; Resp 18 S; Temp 98.1(O); Pulse Ox 100% on R/A; ca1 12:32 Body Mass Index 34.18 (79.38 kg, 152.40 cm) sv MDM: 14:14 Data reviewed: vital signs, nurses notes, lab test result(s), radiologic studies. kdr 17:27 Patient medically screened. kdr 09/13 12:50 Order name: Basic Metabolic Panel; Complete Time: 15:17 kdr 09/13 12:50 Order name: CBC with Diff; Complete Time: 15:17 [facility] 09/13 12:50 Order name: Creatinine for Radiology; Complete Time: 15:17 kdr 09/13 12:50 Order name: Hepatic Function; Complete Time: 15:17 kdr 09/13 12:50 Order name: Lipase; Complete Time: 15:17 [facility] 09/13 17:16 Order name: Urine Dipstick--Ancillary (enter results) eb 09/13 12:50 Order name: IV Saline Lock; Complete Time: 13:59 kdr 09/13 15:21 Order name: Abdomen ; Complete Time: 17:09 [facility] 09/13 12:50 Order name: Labs collected and sent; Complete Time: 13:59 kdr Administered Medications: 14:50 Drug: Zofran 4 mg Route: IVP; Site: left antecubital; ca1 16:37 Follow up: Response: No adverse reaction; Nausea is decreased ca1 14:50 Drug: NS 0.9% 500 ml Route: IV; Rate: bolus; Site: left antecubital; ca1 16:00 Follow up: Response: No adverse reaction; IV Status: Completed infusion ca1 14:55 Drug: morphine 4 mg Route: IVP; Site: left antecubital; ca1 16:35 Follow up: Response: No adverse reaction; Pain is decreased ca1 16:37 Drug: morphine 4 mg Route: IVP; Site: left antecubital; ca1 17:56 Follow up: Response: No adverse reaction; Pain is decreased ca1 17:37 Drug: Valium 5 mg Route: IVP; Site: right hand; ca1 18:10 Follow up: Response: No adverse reaction; Pain is decreased ca1 Disposition: 09/13/18 17:27 Discharged to Home. Impression: Abdominal and pelvic pain, Myalgia. - Condition is Stable. - Discharge Instructions: Musculoskeletal Pain, Nausea and Vomiting, Adult, [id number], Abdominal Pain, Adult, [id number]. - Prescriptions for Bentyl 20 mg Oral Tablet - take 1 tablet by ORAL route every 6 hours As needed; 20 tablet. Cyclobenzaprine 10 mg Oral Tablet - take 1 tablet by ORAL route every 8 hours As needed; 9 tablet. Tramadol 50 mg Oral Tablet - take 1 tablet by ORAL route every 8 hours as needed; 12 tablet. - Medication Reconciliation Form, Thank You Letter, Prescription Opioid Use form. - Follow up: Private Physician; When: 2 - 3 days; Reason: If symptoms return, Further diagnostic work-up, Recheck today's complaints, Continuance of care, Re-evaluation by your physician. - Problem is an acute exacerbation. - Symptoms have improved. Signatures: Dispatcher [employer] [facility] Barbie Colindres RN RN Matthew Cee MD MD kdr Samantha Rivera RN RN ca1 Corrections: (The following items were deleted from the chart) 15:21 13:05 Abdomen Pelvis W Con+CT.RAD.BRZ ordered. EDKY EDMS 18:47 17:27 09/13/2018 17:27 Discharged to Home. Impression: Abdominal and pelvic pain; ca1 Myalgia. Condition is Stable. Forms are Medication Reconciliation Form, Thank You Letter, Antibiotic Education, Prescription Opioid Use. Follow up: Private Physician; When: 2 - 3 days; Reason: If symptoms return, Further diagnostic work-up, Recheck today's complaints, Continuance of care, Re-evaluation by your physician. Problem is an acute exacerbation. Symptoms have improved. kdr
--- NOTE | 2018-09-13 17:28 | ER ---
Nurse's Notes [facility] Name: Yessenia Aleman Age: 57 yrs Sex: Female : 1960 Arrival Date: 09/13/2018 Time: 12:19 Bed 24 Private MD: Diagnosis: Abdominal and pelvic pain;Myalgia Presentation: 09/13 12:30 Presenting complaint: Patient states: RUQ pain that radiates to the right back, n/v, sv chills x 2 days. Transition of care: patient was not received from another setting of care. Onset of symptoms was September 11, 2018. Initial Sepsis Screen: Does the patient meet any 2 criteria? No. Patient's initial sepsis screen is negative. Does the patient have a suspected source of infection? No. Patient's initial sepsis screen is negative. Care prior to arrival: None. 12:30 Method Of Arrival: Ambulatory sv 12:30 Acuity: HOLLI 2 sv 14:12 Risk Assessment: Do you want to hurt yourself or someone else? Patient reports no ca1 desire to harm self or others. Triage Assessment: 12:33 General: Appears in no apparent distress. uncomfortable, Behavior is cooperative, sv appropriate for age, anxious. Pain: Complains of pain in right upper quadrant Pain radiates to right mid back and right low back Pain currently is 10 out of 10 on a pain scale. Neuro: Level of Consciousness is awake, alert, obeys commands, Oriented to person, place, time, situation, Gait is steady. Respiratory: Respiratory effort is even, unlabored, Respiratory pattern is regular, symmetrical. GI: Reports upper abdominal pain, nausea, vomiting. 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 - Social history:: Smoking status: Patient/guardian denies using tobacco. - Ebola Screening: : No symptoms or risks identified at this time. Screenin:12 Abuse screen: Denies threats or abuse. Denies injuries from another. Nutritional ss screening: No deficits noted. Tuberculosis screening: Never had TB. Fall Risk None identified. Assessment: 14:12 General: Appears uncomfortable, Behavior is cooperative. Pain: Complains of pain in ss right upper quadrant Pain radiates to right mid back Pain currently is 10 out of 10 on a pain scale. Quality of pain is described as aching, tender, Pain began 2-3 days ago. Is continuous. Pain: Quality of pain is described as intermittent back spasms. Neuro: Level of Consciousness is awake, alert, obeys commands, Oriented to person, place, time, situation. Respiratory: Respiratory effort is even, unlabored, Respiratory pattern is regular, symmetrical. GI: Bowel sounds present X 4 quads. Abd is soft and non tender X 4 quads. Reports nausea, vomiting. EENT: Nares are clear Oral mucosa is moist. Throat is clear. Derm: Skin is intact, is healthy with good turgor, Skin is pink, warm \T\ dry. normal. Musculoskeletal: Circulation, motion, and sensation intact. Range of motion: intact in all extremities. 15:15 Reassessment: Patient appears in no apparent distress at this time. Patient and/or ca1 family updated on plan of care and expected duration. Pain level reassessed. Patient is alert, oriented x 3, equal unlabored respirations, skin warm/dry/pink. 15:27 Reassessment: Pt to CT scan. ca1 16:42 Reassessment: Patient appears in no apparent distress at this time. Patient and/or ca1 family updated on plan of care and expected duration. Pain level reassessed. Patient is alert, oriented x 3, equal unlabored respirations, skin warm/dry/pink. 17:30 Reassessment: Patient appears in no apparent distress at this time. Pt complains of ca1 muscle spasms. Notified Dr. Magallon with orders given. 18:04 Reassessment: Patient appears in no apparent distress at this time. Patient is alert, ca1 oriented x 3, equal unlabored respirations, skin warm/dry/pink. Patient states feeling better. 18:30 Reassessment: Patient appears in no apparent distress at this time. Patient is alert, ca1 oriented x 3, equal unlabored respirations, skin warm/dry/pink. Dr. Magallon at bedside. Vital Signs: 12:32 BP 193 / 119; Pulse 84; Resp 22; Temp 97.7(O); Pulse Ox 100% ; Weight 79.38 kg; Height sv 5 ft. 0 in. (152.40 cm); Pain 10/10; 14:36 BP 186 / 96; Pulse 74; Resp 16; Temp 98.1; Pulse Ox 97% ; lt1 16:43 BP 170 / 119; Pulse 75; Resp 17 S; Pulse Ox 97% on 2 lpm NC; ca1 17:23 BP 176 / 84; Pulse 73; Resp 17 S; Temp 98.1(O); Pulse Ox 98% on R/A; ca1 18:10 BP 173 / 110; Pulse 72; Resp 17 S; Temp 98(O); Pulse Ox 97% on R/A; ca1 18:30 BP 171 / 102; Pulse 73; Resp 18 S; Temp 98.1(O); Pulse Ox 100% on R/A; ca1 12:32 Body Mass Index 34.18 (79.38 kg, 152.40 cm) sv ED Course: 12:19 Patient arrived in ED. as 12:32 Triage completed. sv 12:33 Arm band placed on. sv 12:50 Matthew Magallon MD is Attending Physician. kdr 12:52 Samantha Rivera RN is Primary Nurse. ca1 13:27 Radiology exam delayed due to lab results not completed at this time. (BUN/Creatinine). mw3 13:40 Missed attempt(s): 22 gauge in right antecubital area. Bleeding controlled, band aid ca1 applied, catheter tip intact. 13:40 No provider procedures requiring assistance completed. ca1 13:50 Missed attempt(s): 22 gauge in left antecubital area. by Lisa Goodson electronics instructor. Bleeding ca1 controlled, band aid applied, catheter tip intact. 14:12 Patient has correct armband on for positive identification. Bed in low position. Call ss light in reach. 14:12 Missed attempt(s): 22 gauge in right forearm. blood collected. Pressure dressing ss applied, tip intact.. 14:36 Missed attempt(s): 22 gauge in right forearm. by Renan Hinds LVN. Bleeding controlled, ca1 band aid applied, catheter tip intact. 14:45 Inserted saline lock: 22 gauge in left antecubital area, using aseptic technique. ca1 ,using aseptic technique. By Renan Hinds LPN Blood collected. 15:30 CT completed. Patient tolerated procedure well. Patient moved to CT. Patient moved back mw3 from CT. 15:33 Abdomen In Process Unspecified. EDMS 18:46 IV discontinued, intact, bleeding controlled, No redness/swelling at site. Pressure ca1 dressing applied. Administered Medications: 14:50 Drug: Zofran 4 mg Route: IVP; Site: left antecubital; ca1 16:37 Follow up: Response: No adverse reaction; Nausea is decreased ca1 14:50 Drug: NS 0.9% 500 ml Route: IV; Rate: bolus; Site: left antecubital; ca1 16:00 Follow up: Response: No adverse reaction; IV Status: Completed infusion ca1 14:55 Drug: morphine 4 mg Route: IVP; Site: left antecubital; ca1 16:35 Follow up: Response: No adverse reaction; Pain is decreased ca1 16:37 Drug: morphine 4 mg Route: IVP; Site: left antecubital; ca1 17:56 Follow up: Response: No adverse reaction; Pain is decreased ca1 17:37 Drug: Valium 5 mg Route: IVP; Site: right hand; ca1 18:10 Follow up: Response: No adverse reaction; Pain is decreased ca1 Outcome: 17:27 Discharge ordered by . kdr 18:46 Discharged to home ambulatory, with significant other. ca1 18:46 Condition: stable 18:46 Discharge instructions given to patient, Instructed on discharge instructions, follow up and referral plans. medication usage, Demonstrated understanding of instructions, follow-up care, medications, Prescriptions given X 3. 18:47 Patient left the ED. ca1 Signatures: Dispatcher [employer] EDMS Barbie Colindres RN RN sv Rittger, Kevin, MD MD kdr Martinez, Amelia as Smirch, Shelby, RN RN ss Erika Marion mw3 Samantha Rivera RN RN ca1 Lisa Omer lt1 Corrections: (The following items were deleted from the chart) 12:35 12:32 Pulse 84bpm; Resp 22bpm; Pulse Ox 100%; Temp 97.7F Oral; 79.38 kg; Height 5 ft. 0 sv in.; BMI: 34.1; Pain 10/10; sv 12:36 12:30 Acuity: HOLLI 3 sv sv 12:36 12:32 Pulse 84bpm; Resp 22bpm; Pulse Ox 100%; Temp 97.7F Oral; 79.38 kg; Height 5 ft. 0 sv in.; BMI: 34.1; Pain 10/10; sv 16:44 15:15 BP 170 / 119; Pulse 75bpm; Resp 17bpm; Spontaneous; Pulse Ox 97% RA; ca1 ca1 16:51 16:43 BP 170 / 119; Pulse 75bpm; Resp 17bpm; Spontaneous; Pulse Ox 97% RA; ca1 ca1 16:51 16:50 BP 123 / 57; Pulse 75bpm; Resp 18bpm; Pulse Ox 94% 2 lpm Nasal Cannula; Temp ca1 98.3F Oral; ca1 17:56 13:40 Missed attempt(s): 22 gauge in right forearm. ca1 ca1 18:02 13:40 Missed attempt(s): 22 gauge in right ca1 ca1 18:11 16:50 BP 123 / 57; Pulse 75bpm; Resp 18bpm; Pulse Ox 98% 2 lpm Nasal Cannula; Temp ca1 98.3F Oral; ca1 18:12 17:30 BP 123 / 57; Pulse 75bpm; Resp 18bpm; Pulse Ox 98% 2 lpm Nasal Cannula; Temp ca1 98.3F Oral; ca1
[2018-09-13] MEDS ORDERED: DIAZEPAM 10 MG/2 ML INJ SYRINGE ONE (17:34)
[2018-09-13 19:23] VITALS: BP 171/102; TEMP 98.1; O2SAT 100
[2018-09-13 20:12] LABS: Urine Blood NEGATIVE (NEG); Urine Glucose NEGATIVE (NEG); Urine Protein NEGATIVE (NEG); Urine Specific Gravity 1.015 (1.005-1.030); Urine pH 6.5 (5.0-7.0)
== END 2018-09-13 18:47 | disposition home or self-care (01) ==
LOC: ER 12:17
DX: M79.10 Myalgia, unspecified site (principal); I10 Essential (primary) hypertension; Z88.5 Allergy status to narcotic agent
CPT/HCPCS: 36415; 74176; 80048; 80076; 81003; 83690; 85025; 99284; J2405; J3360; J7030

== ENCOUNTER 2018-10-04 17:22 | Emergency (ER) | payer OTHER ==
--- OUTSIDE RECORDS SUMMARY | 2018-10-04 17:25 | XMS REPORT ---
[...] Status Dosage System Date Date Gabapentin ND 30379847441 300 MG Orally July Active 1 capsule Once a day 2018 Diazepam ND 94017149228 5 MG Orally July Active 1 tablet Once a day prn 2018 as needed panic attacks Phenergan [facility] [address]-90 25mg Po Q 12 Active one tablet hours Robaxin-750 ND 36132596511 750 MG Orally Active 1 tablet every 4 hrs Seroquel XR ND 30754238001 300 MG Orally Active 1 tablet Once a day in the evening Lexapro ND 63251002762 20 MG Orally Active 1 tablet Once a day Alprazolam ND 17655056731 1 MG Orally Active 1 tablet Twice a day Losartan ND 17887602767 100 MG Orally Active 1 tablet Potassium Once a day Results No Known Results Summary Purpose eClinicalWorks Submission
--- OUTSIDE RECORDS SUMMARY | 2018-10-04 17:29 | XMS REPORT ---
:1960 [facility] Address [address] [place] [address] Care Team Providers Name Role Phone Gisselle Mai CLUB ROOM ATTENDANT-C Unavailable Unavailable Boogie Cox Unavailable Unavailable PROVIDER, [...] was reported as final has been changed. Mqlpwvxenz4217-21-50 22:53:00 Test Item Value Reference Range Comments [...] 0-3 Hyaline code=UACAST) LPF Urine Source: Urine [id number] SURGICAL PATHOLOGY, LEVEL [id number] 14:31:00-- [place] [address] Laboratory Printed: 07/09/[address] DAEMPathology Page: 1 Patient: ZEKE ROMERO Birthdate: 1960 Age/Sex: 56/F Spec#: [id number]: HERMES SALAZAR Specimen Date: 07/08/17 [...] Pathologist: Kelvin Conway Entered by:07/09/17 - 1430 [facility] PROCEDURES: 05636, 31818/4 Patient: ZEKE ROMERO ReLoc: T4-A MR#: [id number] CONTINUED ON NEXT PAGE Dis: 07/09/17ta: DIS IN [address] [address] Laboratory Printed: 07/09/[address] Fax: Page: 2 Patient: ZEKE ROMERO [id number] (Continued) GROSS DESCRIPTION A. LIVER BIOPSY LEFT [...] Dictated by: DANII SHAHID Entered by:07/08/17 - 131[facility].YGP MICROSCOPIC DESCRIPTION A microscopic examination was performed to arrive at the diagnostic conclusion reported. Signed (Electronically Signed) Kelvin August 15 Patient: ZEKE ROMERO Re07/03/17Loc: T4-A MR#: [id number] END OF REPORT Dis: 07/09/17ta: DIS EQFsamlpnzk3478-21-24 05:13:00 Test Item Value Reference Range Comments [...] (test code=ALT) 75 U/L 8-55 Reference Lab [id number] 04:14:00 Test Item Value Reference Range Comments Reference Lab Testing 10 U/mL 0-35 Laurent ECLIA methodologyPerformed at: (test sfjl=MS156) - [address] [id number] Director: Chico Suero MD, Phone: [phone] Reference Lab [id number] 16:14:00 Test Item Value Reference Range Comments Reference Lab Testing (test 128.5 Units 0.0-20.0 code=MARLON) Negative 0.0 - 20.0 Equivocal 20.1 - 24.9 Positive >24.9Mitochondrial (M2) Antibodies are found in 90-96% ofpatients with primary biliary cirrhosis.Performed at: [employer] [facility] [id number] Director: Chester Rider MD, Phone: [phone] Reference Lab [id number] 16:14:00 Test Item Value Reference Range Comments [...] up testing of positive sera with both CO-3 and MPO-ANCA enzyme immunoassays. As many as 5% serumsamples are positive only by EIA. Ref. AM J Clin Dxzple5647;111:507-513. Reference Lab Testing <1:20 titer Neg:<1:20 The atypical pANCA pattern has (test code=ATANCA) been observed in asignificant percentage of patients with ulcerative colitis,primary sclerosing cholangitis and autoimmune hepatitis.Performed at: [facility] [facility] [id number] Director: Chester Rider MD, Phone: [phone] [id number] 05:12:00 Test Item Value Reference Range Comments [...] (test 86 U/L 8-55 code=ALT) Reference Lab [id number] 22:07:00 Test Item Value Reference Range Comments Reference Lab Testing (test 785 IU/L 39-117 code=ISOALKT) Reference Lab Testing (test 25 % 14-68 code=ISOALKBT) Reference Lab Testing (test 74 % 18-85 code=ISOALKLT) Reference Lab Testing (test 1 % 0-18 Performed at: [facility]Co code=ISOALKIT) [address] [id number] Director: Chico Suero MD, Phone: [phone] at: [facility] [id number] Director: Chester Rider MD, Phone: [phone] Pwcfdyhwj8434-01-62 11:48:00 Test Item Value Reference Range Comments Chemistry (test code=TBILI) 0.7 mg/dL 0.2-1.2 Chemistry (test code=DBILI) 0.6 mg/dL 0.1-0.3 Chemistry (test code=TP) 5.9 g/dL 6.0-8.3 Chemistry (test code=ALB) 3.4 g/dL 3.5-5.0 Chemistry (test code=ALP) 635 U/L 40-150 Chemistry (test code=AST) 57 U/L 5-34 Chemistry (test code=ALT) 92 U/L 8-55 Nrqupcqmr0128-03-99 06:08:00 Test Item Value Reference Range Comments [...] code=GLU-T) Chemistry (test code=CA) 8.5 mg/dL 7.8-10.44 [id number] 06:06:00 Test Item Value Reference Range Comments Chemistry (test code=TBILI) 0.9 mg/dL 0.2-1.2 Chemistry (test code=DBILI) 0.7 mg/dL 0.1-0.3 Chemistry (test code=TP) 6.1 g/dL 6.0-8.3 Chemistry (test code=ALB) 3.5 g/dL 3.5-5.0 Chemistry (test code=ALP) 766 U/L 40-150 Chemistry (test code=AST) 100 U/L 5-34 Chemistry (test code=ALT) 129 U/L 8-55 Bcgkktnyiv4250-39-17 05:57:00 Test Item Value Reference Range Comments [...] 0.0-0.7 Hematology (test code=BASO#) 0.0 thou/uL 0.0-0.2 Vuxzrdgbewt3667-19-25 05:55:00 Test Item Value Reference Range Comments Coagulation (test 13.5 SEC 12.0-14.7 code=PT-T) Coagulation (test 1.0 ATTENTION: READ code=INR) CAREFULLY -The recommended therapeutic ranges for oral anticoagulanttreatments are: Low Intensity: 1.5 - 2.0 Moderate Intensity: 2.0 - 3.0 High Intensity (1): 2.5 - 3.5 High Intensity (2): 3.0 - 4.0 CRITICAL: > 4.0 Anticoagulant? ZMXKYeqeukvzu6917-37-37 05:36:00 Test Item Value Reference Range Comments [...] code=GLU-T) Chemistry (test code=CA) 8.9 mg/dL 7.8-10.44 Scbckanis0139-91-01 05:33:00 Test Item Value Reference Range Comments Chemistry (test code=TBILI) 0.9 mg/dL 0.2-1.2 Chemistry (test code=DBILI) 0.6 mg/dL 0.1-0.3 Chemistry (test code=TP) 6.8 g/dL 6.0-8.3 Chemistry (test code=ALB) 3.8 g/dL 3.5-5.0 Chemistry (test code=ALP) 864 U/L 40-150 Chemistry (test code=AST) 147 U/L 5-34 Chemistry (test code=ALT) 160 U/L 8-55 [id number] 05:28:00 Test Item Value Reference Range Comments [...] code=BASO#) 0.1 thou/uL 0.0-0.2 Chemistry - Elizabeth Qiekjoi4801-46-76 13:02:00 Test Item Value Reference Range Comments [...] NEW METHODOLOGY.Method: Enzyme Linked Fluorescent Immunoassay (Elizabeth)References: [employer] Elizabeth Package Inserts - Directions forUse, June, July 2016, [employer]. Rjfyysxdq7295-97-05 05:00:00 Test Item Value Reference Range Comments Chemistry (test code=TBILI) 0.9 mg/dL 0.2-1.2 Chemistry (test code=DBILI) 0.6 mg/dL 0.1-0.3 Chemistry (test code=TP) 6.9 g/dL 6.0-8.3 Chemistry (test code=ALB) 3.9 g/dL 3.5-5.0 Chemistry (test code=ALP) 837 U/L 40-150 Chemistry (test code=AST) 117 U/L 5-34 Chemistry (test code=ALT) 144 U/L 8-55 Hakqmrmgv8277-53-34 04:50:00 Test Item Value Reference Range Comments [...] code=GLU-T) Chemistry (test code=CA) 8.4 mg/dL 7.8-10.44 Mlewjikoak4797-67-34 04:39:00 Test Item Value Reference Range Comments [...] 0.0-0.7 Hematology (test code=BASO#) 0.0 thou/uL 0.0-0.2 Bvrjzbjdu6217-09-87 17:07:00 Test Item Value Reference Range Comments Chemistry (test code=IGG) 1032.00 mg/dL 552-1631 Eaogsnnnt9071-99-06 17:07:00 Test Item Value Reference Range Comments Chemistry (test code=IGM) 215.00 mg/dL 33-293 Fjxdknppjb2221-07-45 00:50:00 Test Item Value Reference Range Comments [...] Negative Urine Source: Urine Clean CatchChemistry - Jqyyfxah1890-28-96 00:25:00 Test Item Value Reference Range Comments Chemistry - Specials (test code=THEPAIGM) Non-Reactive NonReactive Chemistry - Specials (test code=THBSAG) Non-Reactive S/CO NonReactive Chemistry - Specials (test code=INTHBCM) Non-Reactive NonReactive Chemistry - Specials (test code=INTHEPC) Non-Reactive NonReactive Uqltntefk9656-27-71 22:12:00 Test Item Value Reference Range Comments [...] 5-34 Chemistry (test code=ALT) 196 U/L 8-55 Yixrvhkrx7989-80-53 22:12:00 Test Item Value Reference Range Comments Chemistry (test code=LIP) 22 U/L 8-78 Jtvhldhrpi8815-68-37 21:50:00 Test Item Value Reference Range Comments [...] 0.0-0.7 Hematology (test code=BASO#) 0.1 thou/uL 0.0-0.2 Ztwxpgiba4782-62-71 22:49:00 Test Item Value Reference Range Comments [...] 5-34 Chemistry (test code=ALT) 78 U/L 8-55 Gbeoiwvio9165-27-40 22:49:00 Test Item Value Reference Range Comments Chemistry (test code=LIP) 12 U/L 8-78 Adzfgrfbxu7555-19-25 22:24:00 Test Item Value Reference Range Comments [...] 0.0-0.7 Hematology (test code=BASO#) 0.0 thou/uL 0.0-0.2 Btpyyiuwyg9116-81-31 22:00:00 Test Item Value Reference Range Comments [...] code=UABLD) Negative Negative Urine Source: Urine Clean VqacjPmhoetab3277-03-41 09:28:00 Test Item Value Reference Range Comments Accuchek (test code=ACU) 99 mg/dL 70-110 Isjyohispy1080-68-52 09:14:00 Test Item Value Reference Range Comments [...] code=UABLD) Negative Negative Urine Source: Urine Clean MzwvtOjbxrouyik3111-65-42 21:28:00 Test Item Value Reference Range Comments [...] code=UABLD) Negative Negative Urine Source: Urine Clean IjphjAjbqzrchy0800-84-13 21:09:00 Test Item Value Reference Range Comments [...] 5-34 Chemistry (test code=ALT) 95 U/L 8-55 Sssuzvfkd4322-13-86 21:09:00 Test Item Value Reference Range Comments Chemistry (test code=LIP) 39 U/L 8-78 Bcqeskpokt4020-02-15 20:49:00 Test Item Value Reference Range Comments [...] 0.0-0.7 Hematology (test code=BASO#) 0.0 thou/uL 0.0-0.2 Yzdrlxxnqx8101-32-30 21:34:00 Test Item Value Reference Range Comments [...] held fortwo weeks. Urine Source: Urine Clean YqbuuGeolduwdln2177-70-63 19:17:00 Test Item Value Reference Range Comments [...] (test code=UABLD) Negative Negative Urine Source: Urine MtoivzRuiayezkw3260-04-06 18:48:00 Test Item Value Reference Range Comments [...] 5-34 Chemistry (test code=ALT) 84 U/L 8-55 Yvynwoyjn4853-78-07 18:48:00 Test Item Value Reference Range Comments Chemistry (test code=JORGE) 53.0 U/L 25-125 Hiqrpdadl2075-09-08 18:48:00 Test Item Value Reference Range Comments Chemistry (test code=LIP) 10 U/L 8-78 Tmfqylfklk9032-39-55 18:19:00 Test Item Value Reference Range Comments [...] Hematology (test code=BASO#) 0.1 thou/uL 0.0-0.2 Culture, Owfag3428-99-22 10:22:00 Test Item Value Reference Range Comments Culture, Urine (test code=URC) NF Culture, Urine (test code=URC1) 10 MSF Svrssuxkv9656-16-23 17:38:00 Test Item Value Reference Range Comments Chemistry (test code=PHOS) 2.9 mg/dL 2.3-4.7 Dtxasebak7429-33-53 17:04:00 Test Item Value Reference Range Comments [...] 95 U/L 8-55 Chemistry - BNP, HgbA1c, [id number] 17:04:00 Test Item Value Reference Range Comments Chemistry - BNP, HgbA1c, 4.9 % 4.0-6.0 Therapeutic goals for glycemic PTHi (test code=EXFH7IB) control (ADA)Adults:- Goal of therapy: Less than 7.0% HbA1c- Action suggested: Greater than 8.0% TwC4yTiabgwzuc patients:- Toddlers and preschoolers: Less than 8.5% (but Greater than 7.5%)- School age (6-12 years): Less than 8%- Adolescents and young adults (13-19 years): Less than 7.5%Diagnosing diabetes (ADA)- HbA1c: Greater than or equal to 6.5% Values of 5.7 - 6.4% indicate HIGH risk for developing DiabetesInternational Expert Committee Report on the Role of the U7ZAxdxl in the Diagnosis of Diabetes. Diabetes Care 2009July;32(7):1327-1334ADA, Diagnosis classification of diabetes mellitus.Diabetes Care 2010; 33 Suppl 1:S62 Wpprgcjjd8935-57-51 16:59:00 Test Item Value Reference Range Comments Chemistry (test code=CRP) 1.16 mg/dL =or < 0.5 What test does the doctor want? C-REACTIVE PROTEIN (CRP)Gcoywkjoji9445-26-76 16: 53:00 Test Item Value Reference Range [...] HPF None Seen Urine Source: Urine Clean DxzkaTtovbfwhkx2070-04-43 16:46:00 Test Item Value Reference Range Comments [...] 0.0-0.7 Hematology (test code=BASO#) 0.1 thou/uL 0.0-0.2 Ceukeiumlb7873-23-07 21:59:00 Test Item Value Reference Range Comments [...] Urine Clean CatchSepsis - Lactic Acid >2 [id number] 23:59: 00 Test Item Value Reference Range Comments Sepsis - Lactic Acid >2 Additional Lactate testing will be performed Rflx (test code=UJYKS9V) in 3 hrs according to the SepsisProtocol. Dtpiunkdr6695-95-56 21:12:00 Test Item Value Reference Range Comments Chemistry (test code=JORGE) 59.0 U/L 25-125 Gddvxqmgb1009-64-03 20:59:00 Test Item Value Reference Range Comments [...] 5-34 Chemistry (test code=ALT) 87 U/L 8-55 Zrzkifdgr2313-56-31 20:59:00 Test Item Value Reference Range Comments Chemistry (test code=LIP) 32 U/L 8-78 Chemistry - Juekpba7587-28-95 20:59:00 Test Item Value Reference Range Comments Chemistry - Lactate (test code=LACTSEP-T) 2.1 mmol/L 0.5-2.2 Wjqvyyxvih6715-24-89 20:43:00 Test Item Value Reference Range Comments [...] (test code=UABLD) Negative Negative Urine Source: Urine [id number] 20:37:00 Test Item Value Reference Range Comments [...]
[2018-10-04 18:28] LABS: Absolute Lymphocytes (CBC) 1.7 K/uL (0.7-4.9); Basophils % 0.6 % (0-1.3); Eosinophils % 1.1 % (0-4.4); Hematocrit 37.5 % (36.0-45.0); Lymphocytes % 24.5 % (15.3-44.8); Monocytes % 7.1 % (3.3-12.3); RBC Red Blood Cell Count 4.25 M/uL (3.86-4.86)
[2018-10-04] MEDS ORDERED: PANTOPRAZOLE 40 MG INJ ONE (18:28)
[2018-10-04] MEDS ORDERED: PROMETHAZINE 25 MG/ML VIAL ONE (18:28)
[2018-10-04] MEDS ORDERED: MORPHINE 4 MG/ML SYR ONE ×2 (18:28→20:33)
[2018-10-04] MEDS ORDERED: NA CHLORIDE 0.9% 1,000 ML ONE (18:29)
[2018-10-04 19:00] LABS: ALT/SGPT 127 U/L (12-78); AST/SGOT 90 U/L (15-37); Albumin 4.1 g/dL (3.4-5.0); Alkaline Phosphatase 729 U/L (45-117); BUN Blood Urea Nitrogen 14 mg/dL (7-18); Bicarbonate 25 mmol/L (21-32); Bilirubin Direct 0.8 mg/dL (0-0.2); Bilirubin Total 1.2 mg/dL (0.2-1.0); Glucose Level 103 mg/dL (74-106); Potassium 4.1 mmol/L (3.5-5.1); Protein, Total 8.9 g/dL (6.4-8.2); Sodium Level 140 mmol/L (136-145)
[2018-10-04 19:01] LABS: Lipase 288 U/L (73-393); Magnesium 2.1 mg/dL (1.8-2.4); Troponin I < 0.02 ng/mL (0.0-0.045)
[2018-10-04] MEDS ORDERED: LIDOCAINE VISCOUS 2% SOLN 15 ML UDC ONE (20:16)
[2018-10-04] MEDS ORDERED: MAGNE/ALUM HYDROXD 30 ML UCUP ONE (20:16)
--- NOTE | 2018-10-04 20:17 | ER ---
Nurse's Notes [facility] Name: Yessenia Aleman Age: 57 yrs Sex: Female : 1960 Arrival Date: 10/04/2018 Time: 17:25 Bed 5 Private MD: Jeannie Slade Diagnosis: Upper abdominal pain, unspecified;Abnormal results of liver function studies Presentation: 10/04 17:37 Presenting complaint: Patient states: I have been having RUQ pain that radiates around la1 my right flank with vomiting for the last couple days. Transition of care: patient was not received from another setting of care. Onset of symptoms was October 04, 2018. Risk Assessment: Do you want to hurt yourself or someone else? Patient reports no desire to harm self or others. Initial Sepsis Screen: Does the patient meet any 2 criteria? No. Patient's initial sepsis screen is negative. Does the patient have a suspected source of infection? No. Patient's initial sepsis screen is negative. Care prior to arrival: None. 17:37 Method Of Arrival: Ambulatory la1 17:37 Acuity: HOLLI 2 la1 [employer]: 21:15 LMP N/A - Hysterectomy tl1 Historical: - Allergies: 17:37 Codeine; la1 - PMHx: 17:37 Anxiety; Arthritis; biliary chirrosis; biliary disease; CHF; Chronic Pancreatitis; la1 Hypertension; Pancreatitis; Pneumonia; - PSHx: 17:39 Cholecystectomy; Appendectomy; Tubal ligation; blie duct stenting x 5; la1 - Immunization history:: Adult Immunizations up to date, Last tetanus immunization:. - Social history:: Smoking status: Patient/guardian denies using tobacco. - Ebola Screening: : No symptoms or risks identified at this time. Screenin:00 Abuse screen: Denies threats or abuse. Nutritional screening: No deficits noted. aa5 Tuberculosis screening: No symptoms or risk factors identified. Fall Risk None identified. Assessment: 18:00 General: Appears comfortable, Behavior is calm, cooperative. Pain: Complains of pain in aa5 right upper quadrant Pain radiates to right mid back Pain currently is 10 out of 10 on a pain scale. Quality of pain is described as sharp, Pain began 2-3 days ago. Is continuous. Neuro: Level of Consciousness is awake, alert, obeys commands, Oriented to person, place, time, situation. Cardiovascular: Heart tones S1 S2 present Rhythm is regular. Respiratory: Airway is patent Respiratory effort is even, unlabored, Respiratory pattern is regular, symmetrical. GI: Abdomen is round Bowel sounds present X 4 quads. Abd is soft X 4 quads Abdomen is tender to palpation in right upper quadrant Reports intolerance of fluids, intolerance of food, nausea, vomiting, since 2-3 days ago Patient currently denies diarrhea. : No signs and/or symptoms were reported regarding the genitourinary system. EENT: No signs and/or symptoms were reported regarding the EENT system. Derm: Skin is pink, warm \\T\\ dry. Musculoskeletal: Range of motion: intact in all extremities. 18:00 Reassessment: Pt states "I ran out of my blood pressure medicine, Losartan, on Saturday".aa5 18:24 Reassessment: Patient is alert, oriented x 3, equal unlabored respirations, skin aa5 warm/dry/pink. Pt sitting up in bed watching TV. . 21:13 Reassessment: Patient and/or family updated on plan of care and expected duration. Pain tl1 level reassessed. Patient is alert, oriented x 3, equal unlabored respirations, skin warm/dry/pink. Patient states feeling better. Patient states symptoms have improved. GI: Abdomen is non-distended, Abd is soft and non tender X 4 quads. Vital Signs: 17:38 BP 216 / 106; Pulse 94; Resp 16; Temp 97.5; Pulse Ox 98% on R/A; Weight 74.84 kg; la1 Height 5 ft. 0 in. (152.40 cm); Pain 10/10; 18:15 BP 173 / 102; Pulse 87; Resp 16 S; Pulse Ox 97% on R/A; Pain 10/10; aa5 18:24 Resp 14 S; Pulse Ox 92% on R/A; aa5 18:24 Pulse Ox 95% on 2 lpm NC; aa5 20:13 BP 153 / 98; Pulse 69; Resp 16; Pulse Ox 93% on R/A; Pain 6/10; tl1 17:38 Body Mass Index 32.22 (74.84 kg, 152.40 cm) la1 ED Course: 17:25 Patient arrived in ED. mr 17:25 Jeannie Slade MD is Private Physician. mr 17:36 Arm band placed on right wrist. la1 17:38 Triage completed. la1 17:51 Kyler Voss PA is PHCP. cp 17:51 Kyler Flores MD is Attending Physician. cp 17:52 Jacquie Abel, LUCIUS is Primary Nurse. aa5 18:00 Patient has correct armband on for positive identification. Placed in gown. Bed in low aa5 position. Call light in reach. Side rails up X2. classroom monitor on. Pulse ox on. NIBP on. 18:00 Patient maintains SpO2 saturation greater than 95% on room air. aa5 18:00 No provider procedures requiring assistance completed. aa5 18:10 Initial lab(s) drawn, by me, sent to lab. Inserted saline lock: 22 gauge in right aa5 forearm, using aseptic technique. Blood collected. 19:07 Report given to LUCIUS De León and LUCIUS Lee. aa5 21:13 IV discontinued, intact, bleeding controlled, No redness/swelling at site. Pressure tl1 dressing applied. Administered Medications: 18:17 Drug: Phenergan 25 mg Route: IVP; Site: right forearm; aa5 18:25 Follow up: Response: No adverse reaction aa5 18:17 Drug: NS 0.9% 1000 ml Route: IV; Rate: 1 bolus; Site: right forearm; aa5 21:16 Follow up: IV Status: Completed infusion; IV Intake: 1000ml tl1 18:18 Drug: ProTONIX 40 mg Route: IVP; Site: right forearm; aa5 18:25 Follow up: Response: No adverse reaction aa5 18:20 Drug: morphine 4 mg Route: IVP; Site: right forearm; aa5 18:25 Follow up: Response: No adverse reaction aa5 20:03 Drug: GI Cocktail without - (Maalox Suspension 30 ml, Lidocaine Liquid 2 % 15 tl1 ml) Route: PO; 20:26 Follow up: Response: No adverse reaction; Marked relief of symptoms; Pain is decreased tl1 20:25 Drug: morphine 4 mg Route: IVP; Infused Over: 2 mins; Site: right forearm; tl1 20:26 Follow up: Response: No adverse reaction; Marked relief of symptoms; Pain is decreased tl1 Intake: 21:16 IV: 1000ml; Total: 1000ml. tl1 Outcome: 20:17 Discharge ordered by . cp 21:14 Discharged to home via wheelchair, with family. tl1 21:14 Condition: improved 21:14 Discharge instructions given to patient, family, Instructed on discharge instructions, follow up and referral plans. medication usage, Demonstrated understanding of instructions, follow-up care, medications, Prescriptions given X 2. 21:17 Patient left the ED. tl1 Signatures: Sheryl Lucia mr AbelJacquie, RN RN aa5 Won Marmolejo RN RN la1 Genet Dalton RN RN tl1 Kyler Voss, PA PA cp Corrections: (The following items were deleted from the chart) 17:38 17:37 Acuity: HOLLI 3 la1 la1
--- NOTE | 2018-10-04 20:17 | EDPHYS ---
Physician Documentation [facility] Name: Yessenia Aleman Age: 57 yrs Sex: Female : 1960 Arrival Date: 10/04/2018 Time: 17:25 Bed 5 Private MD: Jeannie Slade ED Physician Kyler Flores HPI: 10/04 18:10 This 57 yrs old Female presents to ER via Ambulatory with complaints of cp Vomiting, Back Pain, Abd Pain > 50 y/o. 18:10 The patient presents to the emergency department with nausea, that is moderate, cp vomiting, that is intermittent. 18:10 Onset: The symptoms/episode began/occurred 3 day(s) ago. Possible causes: flare up of cp bowel problem. Associated signs and symptoms: Pertinent positives: chest pain, vomiting, Pertinent negatives: constipation, diarrhea. Severity of symptoms: in the emergency department the symptoms are unchanged despite home interventions. SURGICAL TECH: 21:15 LMP N/A - Hysterectomy tl1 Historical: - Allergies: 17:37 Codeine; la1 - PMHx: 17:37 Anxiety; Arthritis; biliary chirrosis; biliary disease; CHF; Chronic Pancreatitis; la1 Hypertension; Pancreatitis; Pneumonia; - PSHx: 17:39 Cholecystectomy; Appendectomy; Tubal ligation; blie duct stenting x 5; la1 - Immunization history:: Adult Immunizations up to date, Last tetanus immunization:. - Social history:: Smoking status: Patient/guardian denies using tobacco. - Ebola Screening: : No symptoms or risks identified at this time. ROS: 18:13 Constitutional: Positive for poor PO intake, Negative for body aches, chills, fever. cp 18:13 Eyes: Negative for injury, pain, redness, and discharge. cp 18:13 ENT: Negative for drainage from ear(s), ear pain, sore throat, difficulty swallowing, difficulty handling secretions. 18:13 Cardiovascular: Positive for chest pain, Negative for edema, palpitations. 18:13 Respiratory: Negative for cough, shortness of breath, wheezing. 18:13 Abdomen/GI: Positive for abdominal pain, nausea, vomiting, of the epigastric area and right upper quadrant, Negative for diarrhea, constipation, black/tarry stool, rectal bleeding. 18:13 Back: Positive for radiated pain, Negative for pain at rest, pain with movement. 18:13 : Negative for urinary symptoms. 18:13 Skin: Negative for cellulitis, rash. 18:13 Neuro: Negative for altered mental status, headache, weakness. 18:13 All other systems are negative. Exam: 18:15 ECG was reviewed by the Attending Physician. cp 18:18 Constitutional: The patient appears in no acute distress, alert, awake, cp non-diaphoretic, non-toxic, well developed, well nourished. 18:18 Head/Face: Normocephalic, atraumatic. cp 18:18 Eyes: Periorbital structures: appear normal, Conjunctiva: normal, no exudate, no injection, Sclera: no appreciated abnormality, Lids and lashes: appear normal, bilaterally. 18:18 ENT: External ear(s): are unremarkable, Nose: is normal, Mouth: Lips: moist, Oral mucosa: pink and intact, moist, Posterior pharynx: is normal, airway is patent, no erythema, no exudate. 18:18 Chest/axilla: Inspection: normal, Palpation: is normal, no crepitus, no tenderness. 18:18 Cardiovascular: Rate: normal, Rhythm: regular. 18:18 Respiratory: the patient does not display signs of respiratory distress, Respirations: normal, no use of accessory muscles, no retractions, no splinting, no tachypnea, labored breathing, is not present, Breath sounds: are clear throughout, no decreased breath sounds, no stridor, no wheezing. 18:18 Abdomen/GI: Inspection: abdomen appears normal, Bowel sounds: active, all quadrants, Palpation: soft, in all quadrants, moderate abdominal tenderness, in the epigastric area and right upper quadrant, rebound tenderness, is not appreciated, voluntary guarding, is elicited in the epigastric area and right upper quadrant. 18:18 Back: pain, that is moderate, of the right mid back, ROM is normal. Vital Signs: 17:38 BP 216 / 106; Pulse 94; Resp 16; Temp 97.5; Pulse Ox 98% on R/A; Weight 74.84 kg; la1 Height 5 ft. 0 in. (152.40 cm); Pain 10/10; 18:15 BP 173 / 102; Pulse 87; Resp 16 S; Pulse Ox 97% on R/A; Pain 10/10; aa5 18:24 Resp 14 S; Pulse Ox 92% on R/A; aa5 18:24 Pulse Ox 95% on 2 lpm NC; aa5 20:13 BP 153 / 98; Pulse 69; Resp 16; Pulse Ox 93% on R/A; Pain 6/10; tl1 17:38 Body Mass Index 32.22 (74.84 kg, 152.40 cm) la1 MDM: 17:51 Patient medically screened. cp 18:30 Differential diagnosis: gastritis, pancreatitis, diverticulitis, viral gastroenteritis, cp gastroenteritis, pneumonia gastroenteritis. 20:16 Data reviewed: vital signs, nurses notes, lab test result(s), EKG, and as a result, I cp will discharge patient. 20:16 Test interpretation: by ED physician or midlevel provider: ECG. 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 Response to treatment: the patient's symptoms have markedly improved after treatment, and as a result, I will discharge patient. Special discussion: Based on the patient's Hx, exam, and Dx evaluation, there is no indication for emergent surgery or inpatient Tx. It is understood by the patient/guardian that if the Sx's persist or worsen they need to return immediately for re-evaluation. 10/04 18:02 Order name: Basic Metabolic Panel cp 10/04 18:02 Order name: CBC with Diff cp 10/04 18:02 Order name: Creatinine for Radiology 10/04 18:02 Order name: Hepatic Function cp 10/04 18:02 Order name: Lipase cp 10/04 18:02 Order name: Magnesium; Complete Time: 19:33 cp 10/04 18:02 Order name: Troponin I; Complete Time: 19:33 cp 10/04 19:34 Interpretation: Within normal limits: TROP < 0.02. cp 10/04 18:03 Order name: Basic Metabolic Panel; Complete Time: 19:33 EDMS 10/04 19:34 Interpretation: Reviewed. cp 10/04 18:03 Order name: CBC with Automated Diff; Complete Time: 19:33 EDMS 10/04 18:03 Order name: Creatinine (Radiology Only); Complete Time: 19:33 EDMS 10/04 18:03 Order name: Liver (Hepatic) Function; Complete Time: 19:33 EDMS 10/04 19:33 Interpretation: Reviewed. cp 10/04 18:04 Order name: Lipase; Complete Time: 19:33 EDMS 10/04 19:33 Interpretation: LIP 288; Reviewed. 10/04 18:02 Order name: IV Saline Lock; Complete Time: 18:08 cp 10/04 18:02 Order name: Labs collected and sent; Complete Time: 18:08 cp 10/04 18:02 Order name: EKG; Complete Time: 18:04 cp 10/04 18:02 Order name: EKG - Nurse/Tech; Complete Time: 18:08 cp 10/04 19:40 Order name: PO challenge; Complete Time: 20:25 cp EC:15 Rate is 81 beats/min. Rhythm is regular. [place] interval is normal. QRS interval is normal. cp QT interval is normal. Interpreted by me. Reviewed by me. Administered Medications: 18:17 Drug: Phenergan 25 mg Route: IVP; Site: right forearm; aa5 18:25 Follow up: Response: No adverse reaction aa5 18:17 Drug: NS 0.9% 1000 ml Route: IV; Rate: 1 bolus; Site: right forearm; aa5 21:16 Follow up: IV Status: Completed infusion; IV Intake: 1000ml tl1 18:18 Drug: ProTONIX 40 mg Route: IVP; Site: right forearm; aa5 18:25 Follow up: Response: No adverse reaction aa5 18:20 Drug: morphine 4 mg Route: IVP; Site: right forearm; aa5 18:25 Follow up: Response: No adverse reaction aa5 20:03 Drug: GI Cocktail without - (Maalox Suspension 30 ml, Lidocaine Liquid 2 % 15 tl1 ml) Route: PO; 20:26 Follow up: Response: No adverse reaction; Marked relief of symptoms; Pain is decreased tl1 20:25 Drug: morphine 4 mg Route: IVP; Infused Over: 2 mins; Site: right forearm; tl1 20:26 Follow up: Response: No adverse reaction; Marked relief of symptoms; Pain is decreased tl1 Disposition: 10/04/18 20:17 Discharged to Home. Impression: Upper abdominal pain, unspecified, Abnormal results of liver function studies. - Condition is Stable. - Discharge Instructions: Abdominal Pain, Adult. - Prescriptions for Phenergan 25 mg Rectal Suppository - insert 1 suppository by RECTAL route every 6 hours As needed; 12 suppository. promethazine 25 mg Oral Tablet - take 1 tablet by ORAL route every 6 hours As needed; 20 tablet. - Medication Reconciliation Form, Thank You Letter, Antibiotic Education, Prescription Opioid Use form. - Follow up: Private Physician; When: 1 - 2 days; Reason: Recheck today's complaints. - Problem is chronic. - Symptoms have improved. Addendum: 10/06/2018 09:45 Co-signature as Attending Physician, Kyler Flores MD I agree with the assessment and c mcallister plan of care. Signatures: Dispatcher [employer] EDKyler Lowry MD MD cha Calderon, Audri, RN RN aa5 Won Marmolejo RN RN la1 Genet Dalton RN RN tl1 Kyler Voss PA PA cp Corrections: (The following items were deleted from the chart) 10/04 21:17 20:17 10/04/2018 20:17 Discharged to Home. Impression: Upper abdominal pain, tl1 unspecified; Abnormal results of liver function studies. Condition is Stable. Forms are Medication Reconciliation Form, Thank You Letter, Antibiotic Education, Prescription Opioid Use. Follow up: Private Physician; When: 1 - 2 days; Reason: Recheck today's complaints. Problem is chronic. Symptoms have improved. cp
[2018-10-04 21:51] VITALS: TEMP 97.5
[2018-10-04 21:54] VITALS: BP 153/98; O2SAT 93
--- NOTE | 2018-10-06 07:56 | EKG ---
Test Date: 2018-10-04 Test Time: 18:09:34 Hair Cutter: VALENTINE MEASUREMENT RESULTS: Intervals: Rate: 81 DE: 156 QRSD: 78 QT: 370 QTc: 429 [place]: P: 47 DE: 156 QRS: 24 T: 48 INTERPRETIVE STATEMENTS: Normal sinus rhythm Normal ECG Compared to ECG 07/26/2016 17:47:11 No significant changes Electronically Signed On 10-06-18 07:54:15 CDT by Heri Randle
== END 2018-10-04 21:17 | disposition home or self-care (01) ==
LOC: ER 17:22
DX: R94.5 Abnormal results of liver function studies (principal); R10.9 Unspecified abdominal pain; I10 Essential (primary) hypertension; Z88.5 Allergy status to narcotic agent
CPT/HCPCS: 36415; 80048; 80076; 83690; 83735; 84484; 85025; 93005; 96361; 96374; 96375; 99285; C9113; J2550; J7030

== ENCOUNTER 2019-01-07 13:31 | Emergency (ER) | payer OTHER ==
[2019-01-07] MEDS ORDERED: FENTANYL CITR 100 MCG/2 ML ONE ×2 (14:59→17:01)
--- NOTE | 2019-01-07 15:08 | RAD REPORT ---
EXAM DESCRIPTION: CT - Head Brain Wo Cont - 01/07/2019 2:52 pm CLINICAL HISTORY: Seizure COMPARISON: 2016 TECHNIQUE: Computed axial tomography of the head was obtained. IV contrast was not requested. All CT scans are performed using dose optimization technique as appropriate and may include automated exposure control or mA/KV adjustment according to patient size. FINDINGS: An intracranial bleed is not seen . The ventricles are normal in caliber. No extra-axial fluid collection is noted. Fluid within the sinuses/ mastoids is not seen. IMPRESSION: No acute intracranial abnormality is seen. If patient's symptoms persist MRI of the bra in would be recommended.
[2019-01-07] MEDS ORDERED: ONDANSETRON 4 MG/2 ML VIAL ONE (15:22)
[2019-01-07 15:35] LABS: Absolute Lymphocytes (CBC) 1.4 K/uL (0.7-4.9); Hematocrit 31.1 % (36.0-45.0); Lymphocytes % 30.9 % (15.3-44.8); MPV 7.6 fL (7.6-11.3); RBC Red Blood Cell Count 3.44 M/uL (3.86-4.86)
[2019-01-07 15:44] LABS: Albumin 3.5 g/dL (3.4-5.0); Potassium 3.8 mmol/L (3.5-5.1); Protein, Total 7.7 g/dL (6.4-8.2)
[2019-01-07 16:02] LABS: Barbiturates NEGATIVE (NEGATIVE); Benzodiazepines POSITIVE (NEGATIVE); Cocaine NEGATIVE (NEGATIVE); METHAMPHETAM NEGATIVE (NEGATIVE); Methadone NEGATIVE (NEGATIVE); Opiates NEGATIVE (NEGATIVE); Phencyclidine NEGATIVE (NEGATIVE); THC Cannibis NEGATIVE (NEGATIVE)
--- NOTE | 2019-01-07 16:53 | ER ---
Nurse's Notes [facility] Name: Yessenia Aleman Age: 58 yrs Sex: Female : 1960 Arrival Date: 01/07/2019 Time: 13:34 Bed 30 Private MD: Diagnosis: Epilepsy and recurrent seizures Presentation: 01/07 13:43 Presenting complaint: Patient states: Saturday morning i was shaking real bad, i have a tw2 really bad headache and i am nauseous. states: on Saturday she had an episode that looked like a seizure, she told me she started shaking, then on Saturday i she yelled out my name an the spoon hit the bowl, her eyes had rolled back and she was pale, she told me she could hear me but she couldn't respond, i layed her down, then about 15-20 minutes she was fine, i took her to [place] they ran some tests, after the episodes she gets these real bad headaches, then today she had another episode this morning, then she had one on the phone when i was talking to her about 11 am. Transition of care: patient was not received from another setting of care. Onset of symptoms was January 07, 2019. Risk Assessment: Do you want to hurt yourself or someone else? Patient reports no desire to harm self or others. Initial Sepsis Screen: Does the patient meet any 2 criteria? No. Patient's initial sepsis screen is negative. Does the patient have a suspected source of infection? No. Patient's initial sepsis screen is negative. Care prior to arrival: None. 13:43 Method Of Arrival: Wheelchair tw2 13:43 Acuity: HOLLI 3 tw2 Triage Assessment: 13:48 General: Appears in no apparent distress. Behavior is calm, cooperative, appropriate tw2 for age. Pain: Complains of pain in headache. Neuro: Reports dizziness, headache. GI: Reports nausea. Historical: - Allergies: 13:50 Codeine; tw2 - Home Meds: 13:50 Xanax 1 mg Oral tab 1 tab 3 times per day for Anxiety [Active]; Seroquel 300 mg Oral tw2 tab 1 tab once daily [Active]; [place] 10-325 mg Oral tab 1 tab twice a day [Active]; losartan 100 mg Oral tab 1 tab once daily [Active]; Lexapro 20 mg Oral tab 1 tab [Active]; gabapentin 300 mg Oral cap 1 cap daily [Active]; - PMHx: 13:50 Anxiety; Arthritis; biliary chirrosis; biliary disease; CHF; Chronic Pancreatitis; tw2 Hypertension; Pneumonia; Pancreatitis; - PSHx: 13:50 Cholecystectomy; Appendectomy; Tubal ligation; blie duct stenting x 5; tw2 - Immunization history:: Adult Immunizations. - Social history:: Smoking status: . - Ebola Screening: : Patient denies travel to an Ebola-affected area in the 21 days before illness onset. Screenin:36 Abuse screen: Denies threats or abuse. Denies injuries from another. Nutritional rv screening: No deficits noted. Tuberculosis screening: No symptoms or risk factors identified. Fall Risk None identified. Assessment: 14:32 General: Appears in no apparent distress. comfortable, Behavior is calm, cooperative. rv Pain: Complains of pain in head. Neuro: Level of Consciousness is awake, alert, obeys commands, Oriented to person, place, time, situation, Reports headache. Cardiovascular: Patient's skin is warm and dry. Respiratory: Airway is patent. GI: No signs and/or symptoms were reported involving the gastrointestinal system. : No signs and/or symptoms were reported regarding the genitourinary system. EENT: No signs and/or symptoms were reported regarding the EENT system. Derm: Skin is intact. Vital Signs: 13:48 BP 171 / 92; Pulse 65; Resp 17; Temp 98.1(TE); Pulse Ox 98% on R/A; Weight 74.84 kg tw2 (R); Height 5 ft. 0 in. (152.40 cm); Pain 8/10; 14:30 BP 160 / 74; Pulse 66; Resp 17; Pulse Ox 98% on R/A; rv 15:00 BP 179 / 88; Pulse 66; Resp 15; Pulse Ox 98% on R/A; rv 15:30 BP 181 / 92; Pulse 65; Resp 17; Pulse Ox 98% on R/A; rv 16:00 BP 180 / 87; Pulse 58; Resp 15; Pulse Ox 97% on R/A; rv 16:30 BP 145 / 85; Pulse 57; Resp 16; Pulse Ox 97% on R/A; rv 17:12 BP 159 / 92; Pulse 66; Resp 15; Pulse Ox 97% on R/A; rv 13:48 Body Mass Index 32.22 (74.84 kg, 152.40 cm) tw2 Tamiko Coma Score: 13:48 Eye Response: spontaneous(4). Verbal Response: oriented(5). Motor Response: obeys tw2 commands(6). Total: 15. ED Course: 13:34 Patient arrived in ED. as 13:47 Triage completed. tw2 13:47 Arm band placed on. tw2 13:57 Bed in low position. Call light in reach. Side rails up X 1. Side rails up X2. Seizure jp3 precautions initiated. Warm blanket given. Verbal reassurance given. Pulse ox on. 13:57 Patient maintains SpO2 saturation greater than 95% on room air. jp3 14:19 Mitch Wilburn NP is PHCP. pm1 14:19 Matthew Magallon MD is Attending Physician. pm1 14:29 Darshan Chaparro RN is Primary Nurse. rv 14:54 CT Head Brain wo Cont In Process Unspecified. EDMS 15:13 EKG done, by welding technician. reviewed by Mitch Wilburn NP. at1 15:15 Inserted saline lock: 22 gauge in right hand, using aseptic technique. Blood collected. rv 15:32 CMP Sent. rv 15:32 CBC with Diff Sent. rv 15:32 UDS Sent. rv 16:04 No provider procedures requiring assistance completed. rv 17:12 IV discontinued, intact, bleeding controlled, No redness/swelling at site. Pressure rv dressing applied. 17:13 Primary Nurse role handed off by Darshan Chaparro, LUCIUS rv 17:13 Darshan Chaparro RN is Primary Nurse. rv Administered Medications: 15:20 Drug: fentaNYL (PF) 25 mcg {Note: rass 0.} Route: IVP; Site: right hand; rv 17:13 Follow up: Response: No adverse reaction rv 17:13 Follow up: Response: RASS: Alert and Calm (0) rv 15:20 Drug: Zofran 4 mg Route: IVP; Site: right hand; rv 17:14 Follow up: Response: No adverse reaction rv 17:00 Drug: fentaNYL (PF) 25 mcg {Note: rass 0.} Route: IVP; Site: right hand; rv 17:14 Follow up: Response: RASS: Alert and Calm (0) rv Outcome: 16:52 Discharge ordered by MD. pm1 17:11 Discharged to home via wheelchair, with family. rv 17:11 Condition: improved 17:11 Discharge instructions given to patient, Instructed on discharge instructions, follow up and referral plans. Demonstrated understanding of instructions, follow-up care. 17:12 Patient left the ED. rv 17:15 Patient left the ED. rv Signatures: Dispatcher [employer] EDMS Stephanie Messina Amanda, platinumsmith EKG Tat1 Mitch Wilburn, BARREL RAISER BARREL RAISER pm1 Felisa Brown, RN RN tw2 Darshan Chaparro, RN RN rv Jeremiah Hill jp3 Corrections: (The following items were deleted from the chart) 15:31 15:20 fentaNYL (PF) 25 mcg IVP in right hand rv rv
--- NOTE | 2019-01-07 16:54 | EDPHYS ---
Physician Documentation [facility] Name: Yessenia Aleman Age: 58 yrs Sex: Female : 1960 Arrival Date: 01/07/2019 Time: 13:34 Bed 30 Private MD: ED Physician Matthew Magallon HPI: 01/07 14:39 This 58 yrs old Female presents to ER via Wheelchair with complaints of pm1 Probable Seizure. 14:39 The patient presents after having a possible seizure episode, "Eyes rolled back", the pm1 episode(s) was witnessed, by family, . Character of seizure(s): Loss of consciousness: the patient did not lose consciousness, Motor activity: generalized, shaking all over, Incontinence: none, Apnea: the patient did not experience apnea, Circulation: the patient did not experience evidence of pulse disturbance. Seizure onset: 1 week ago and two more episodes prior to this AM. Seizure Hx: the patient has no previous seizure history. Associated injury: The patient did not suffer any apparent associated injury. Current symptoms: headache, that is mild. [facility] twice for the same complaint in the past week and was discharged after workup. Was instructed to follow up with neurology. Historical: - Allergies: 13:50 Codeine; tw2 - Home Meds: 13:50 Xanax 1 mg Oral tab 1 tab 3 times per day for Anxiety [Active]; Seroquel 300 mg Oral tw2 tab 1 tab once daily [Active]; Columbia 10-325 mg Oral tab 1 tab twice a day [Active]; losartan 100 mg Oral tab 1 tab once daily [Active]; Lexapro 20 mg Oral tab 1 tab [Active]; gabapentin 300 mg Oral cap 1 cap daily [Active]; - PMHx: 13:50 Anxiety; Arthritis; biliary chirrosis; biliary disease; CHF; Chronic Pancreatitis; tw2 Hypertension; Pneumonia; Pancreatitis; - PSHx: 13:50 Cholecystectomy; Appendectomy; Tubal ligation; blie duct stenting x 5; tw2 - Immunization history:: Adult Immunizations. - Social history:: Smoking status: . - Ebola Screening: : Patient denies travel to an Ebola-affected area in the 21 days before illness onset. ROS: 14:39 Constitutional: Negative for fever, chills, and weight loss, Eyes: Negative for injury, pm1 pain, redness, and discharge, ENT: Negative for injury, pain, and discharge, Neck: Negative for injury, pain, and swelling, Cardiovascular: Negative for chest pain, palpitations, and edema, Respiratory: Negative for shortness of breath, cough, wheezing, and pleuritic chest pain, Abdomen/GI: Negative for abdominal pain, nausea, vomiting, diarrhea, and constipation, Back: Negative for injury and pain, MS/Extremity: Negative for injury and deformity, Skin: Negative for injury, rash, and discoloration. 14:39 Neuro: Positive for headache, seizure activity, Negative for numbness, tingling, weakness. Exam: 14:39 Constitutional: This is a well developed, well nourished patient who is awake, alert, pm1 and in no acute distress. Head/Face: Normocephalic, atraumatic. Eyes: Pupils equal round and reactive to light, extra-ocular motions intact. Lids and lashes normal. Conjunctiva and sclera are non-icteric and not injected. Cornea within normal limits. Periorbital areas with no swelling, redness, or edema. ENT: Nares patent. No nasal discharge, no septal abnormalities noted. Tympanic membranes are normal and external auditory canals are clear. Oropharynx with no redness, swelling, or masses, exudates, or evidence of obstruction, uvula midline. Mucous membranes moist. Neck: Trachea midline, no thyromegaly or masses palpated, and no cervical lymphadenopathy. Supple, full range of motion without nuchal rigidity, or vertebral point tenderness. No Meningismus. Chest/axilla: Normal chest wall appearance and motion. Nontender with no deformity. No lesions are appreciated. Cardiovascular: Regular rate and rhythm with a normal S1 and S2. No gallops, murmurs, or rubs. Normal PMI, no JVD. No pulse deficits. Respiratory: Lungs have equal breath sounds bilaterally, clear to auscultation and percussion. No rales, rhonchi or wheezes noted. No increased work of breathing, no retractions or nasal flaring. Abdomen/GI: Soft, non-tender, with normal bowel sounds. No distension or tympany. No guarding or rebound. No evidence of tenderness throughout. Back: No spinal tenderness. No costovertebral tenderness. Full range of motion. Skin: Warm, dry with normal turgor. Normal color with no rashes, no lesions, and no evidence of cellulitis. MS/ Extremity: Pulses equal, no cyanosis. Neurovascular intact. Full, normal range of motion. 14:39 Neuro: Orientation: is normal, Motor: is normal, moves all fours, Sensation: is normal, no obvious gross deficits. Vital Signs: 13:48 BP 171 / 92; Pulse 65; Resp 17; Temp 98.1(TE); Pulse Ox 98% on R/A; Weight 74.84 kg tw2 (R); Height 5 ft. 0 in. (152.40 cm); Pain 8/10; 14:30 BP 160 / 74; Pulse 66; Resp 17; Pulse Ox 98% on R/A; rv 15:00 BP 179 / 88; Pulse 66; Resp 15; Pulse Ox 98% on R/A; rv 15:30 BP 181 / 92; Pulse 65; Resp 17; Pulse Ox 98% on R/A; rv 16:00 BP 180 / 87; Pulse 58; Resp 15; Pulse Ox 97% on R/A; rv 16:30 BP 145 / 85; Pulse 57; Resp 16; Pulse Ox 97% on R/A; rv 17:12 BP 159 / 92; Pulse 66; Resp 15; Pulse Ox 97% on R/A; rv 13:48 Body Mass Index 32.22 (74.84 kg, 152.40 cm) tw2 Tamiko Coma Score: 13:48 Eye Response: spontaneous(4). Verbal Response: oriented(5). Motor Response: obeys tw2 commands(6). Total: 15. MDM: 14:19 Patient medically screened. pm1 16:51 Data reviewed: vital signs. Data interpreted: Pulse oximetry: on room air is 97 %. pm1 Interpretation: normal. Counseling: I had a detailed discussion with the patient and/or guardian regarding: the historical points, exam findings, and any diagnostic results supporting the discharge/admit diagnosis, lab results, radiology results, the need for outpatient follow up, to return to the emergency department if symptoms worsen or persist or if there are any questions or concerns that arise at home. 16:57 Physician consultation: Jesse Rodrigues MD was called at 16:53, was contacted at 16:53, pm1 regarding outpatient follow-up, Will see the patient in the office tomorrow between [phone] to [phone]. Have the family call the office to let them know that Dr. Rodrigues spoke to me about it. 01/07 14:47 Order name: CBC with Diff; Complete Time: 15:55 pm1 01/07 14:47 Order name: CMP; Complete Time: 15:55 pm1 01/07 14:38 Order name: CT Head Brain wo Cont; Complete Time: 15:22 pm1 01/07 14:47 Order name: UDS; Complete Time: 23:11 pm1 01/07 14:47 Order name: EKG; Complete Time: 14:49 pm1 01/07 14:47 Order name: EKG - Nurse/Tech; Complete Time: 15:32 pm1 01/07 14:47 Order name: IV Saline Lock; Complete Time: 15:32 pm1 01/07 14:47 Order name: Urine Dipstick-Ancillary (obtain specimen); Complete Time: 15:32 pm1 Administered Medications: 15:20 Drug: fentaNYL (PF) 25 mcg {Note: rass 0.} Route: IVP; Site: right hand; rv 17:13 Follow up: Response: No adverse reaction rv 17:13 Follow up: Response: RASS: Alert and Calm (0) rv 15:20 Drug: Zofran 4 mg Route: IVP; Site: right hand; rv 17:14 Follow up: Response: No adverse reaction rv 17:00 Drug: fentaNYL (PF) 25 mcg {Note: rass 0.} Route: IVP; Site: right hand; rv 17:14 Follow up: Response: RASS: Alert and Calm (0) rv Disposition: 01/08 08:56 Co-signature as Attending Physician, Matthew Magallon MD I agree with the assessment and kdr plan of care. Disposition: 01/07/19 16:52 Discharged to Home. Impression: Epilepsy and recurrent seizures. - Condition is Stable. - Discharge Instructions: Seizure, Adult, Apva-or-Omcu. - Medication Reconciliation Form, Thank You Letter, Antibiotic Education, Prescription Opioid Use form. - Follow up: Emergency Department; When: As needed; Reason: Worsening of condition. Follow up: Private Physician; When: 2 - 3 days; Reason: Recheck today's complaints, Continuance of care, Re-evaluation by your physician. - Problem is new. - Symptoms have improved. Signatures: Dispatcher [employer] EDMS Matthew Magallon MD MD kdr Mitch Wilburn, DOUGH MIXING MACHINE OPERATOR DOUGH MIXING MACHINE OPERATOR pm1 Felisa Brown, RN RN tw2 Darshan Chaparro, RN RN rv Corrections: (The following items were deleted from the chart) 01/07 17:12 16:52 01/07/2019 16:52 Discharged to Home. Impression: Epilepsy and recurrent seizures. rv Condition is Stable. Forms are Medication Reconciliation Form, Thank You Letter, Antibiotic Education, Prescription Opioid Use. Follow up: Emergency Department; When: As needed; Reason: Worsening of condition. Follow up: Private Physician; When: 2 - 3 days; Reason: Recheck today's complaints, Continuance of care, Re-evaluation by your physician. Problem is new. Symptoms have improved. pm1 17:15 17:12 01/07/2019 16:52 Discharged to Home. Impression: Epilepsy and recurrent seizures. rv Condition is Stable. Discharge Instructions: Seizure, Adult, Gsbt-wy-Hzoi. Forms are Medication Reconciliation Form, Thank You Letter, Antibiotic Education, Prescription Opioid Use. Follow up: Emergency Department; When: As needed; Reason: Worsening of condition. Follow up: Private Physician; When: 2 - 3 days; Reason: Recheck today's complaints, Continuance of care, Re-evaluation by your physician. Problem is new. Symptoms have improved. rv
[2019-01-07 18:01] VITALS: TEMP 98.1
[2019-01-07 18:05] VITALS: O2SAT 97
[2019-01-07 18:07] VITALS: BP 159/92
--- NOTE | 2019-01-08 07:04 | EKG ---
Test Date: 2019-01-07 Test Time: 15:10:54 Air Analyst: CHARLY MEASUREMENT RESULTS: Intervals: Rate: 60 NM: 178 QRSD: 78 QT: 422 QTc: 422 [place]: P: 56 NM: 178 QRS: 16 T: 31 INTERPRETIVE STATEMENTS: Normal sinus rhythm Possible Anterior infarct, age undetermined Abnormal ECG Compared to ECG 10/04/2018 18:09:34 Myocardial infarct finding now present Electronically Signed On 01-08-19 07:03:51 CDT by Evan Leblanc
== END 2019-01-07 17:15 | disposition home or self-care (01) ==
LOC: ER 13:31
DX: G40.802 Other epilepsy, not intractable, without status epilepticus (principal); I10 Essential (primary) hypertension; I50.9 Heart failure, unspecified; F41.9 Anxiety disorder, unspecified; Z88.5 Allergy status to narcotic agent
CPT/HCPCS: 93005; 85025; 36415; 80307 ×8; 80053; 70450; 96375; 96374; 99284; J3010 ×2; J2405

== ENCOUNTER 2019-03-24 09:04 | Emergency (ER) | payer OTHER ==
--- OUTSIDE RECORDS SUMMARY | 2019-03-24 09:10 | XMS REPORT ---
:1960 [facility] [address] [place] [address] Care Team Providers Name Role Phone Gisselle Mai GEOGRAPHIC AREA INTELLIGENCE OFFICER-C Unavailable Unavailable Boogie Cox Unavailable Unavailable PROVIDER, [...] was reported as final has been changed. [id number] 22:53:00 Test Item Value Reference Range Comments [...] 0-3 Hyaline code=UACAST) LPF Urine Source: Urine [id number] SURGICAL PATHOLOGY, LEVEL [id number] 14:31:00-- [place] [address] Laboratory Printed: 07/09/17 [facility] Page: 1 Patient: ZEKE ROMERO Birthdate: 1960 Age/Sex: 56/F Spec#: [id number]: HERMES SALAZAR Specimen Date: 07/08/17 [...] Pathologist: Kelvin Conway Entered by:07/09/17 - 1430 [facility] PROCEDURES: 30502, 07089/4 Patient: ZEKE ROMERO ReLoc: T4-A MR#: [id number] CONTINUED ON NEXT PAGE Dis: 07/09/17ta: DIS IN [address] [address] Laboratory Printed: 07/09/17 [facility]: Page: 2 Patient: ZEKE ROMERO [id number] (Continued) GROSS DESCRIPTION A. LIVER BIOPSY LEFT [...] Dictated by: DANII SHAHID Entered by:07/08/17 - 131[facility]YGP MICROSCOPIC DESCRIPTION A microscopic examination was performed to arrive at the diagnostic conclusion reported. Signed (Electronically Signed) Kelvin August 15 Patient: ZEKE ROMERO Re07/03/17Loc: T4-A MR#: [id number] END OF REPORT Dis: 07/09/17ta: DIS [id number] 05:13:00 Test Item Value Reference Range Comments [...] (test code=ALT) 75 U/L 8-55 Reference Lab [id number] 04:14:00 Test Item Value Reference Range Comments Reference Lab Testing 10 U/mL 0-35 Laurent ECLIA methodologyPerformed at: (test hcpn=[id number]) - [address] [id number] Director: Chico Suero MD, Phone: [phone] Reference Lab [id number] 16:14:00 Test Item Value Reference Range Comments Reference Lab Testing (test 128.5 Units 0.0-20.0 code=MARLON) Negative 0.0 - 20.0 Equivocal 20.1 - 24.9 Positive >24.9Mitochondrial (M2) Antibodies are found in 90-96% ofpatients with primary biliary cirrhosis.Performed at: [facility] [id number] Director: Chester Rider MD, Phone: [phone] Reference Lab [id number] 16:14:00 Test Item Value Reference Range Comments [...] up testing of positive sera with both MT-3 and MPO-ANCA enzyme immunoassays. As many as 5% serumsamples are positive only by EIA. Ref. AM J Clin Xusjyw7482;111:507-513. Reference Lab Testing <1:20 titer Neg:<1:20 The atypical pANCA pattern has (test code=ATANCA) been observed in asignificant percentage of patients with ulcerative colitis,primary sclerosing cholangitis and autoimmune hepatitis.Performed at: [facility] [id number] Director: Chester Rider MD, Phone: [phone] [id number] 05:12:00 Test Item Value Reference Range Comments [...] (test 86 U/L 8-55 code=ALT) Reference Lab [id number] 22:07:00 Test Item Value Reference Range Comments Reference Lab Testing (test 785 IU/L 39-117 code=ISOALKT) Reference Lab Testing (test 25 % 14-68 code=ISOALKBT) Reference Lab Testing (test 74 % 18-85 code=ISOALKLT) Reference Lab Testing (test 1 % 0-18 Performed at: [facility] LabCo code=ISOALKIT) [address] [id number] Director: Chico Suero MD, Phone: [phone] at: [facility] [id number] Director: Chester Rider MD, Phone: [phone] [id number] 11:48:00 Test Item Value Reference Range Comments Chemistry (test code=TBILI) 0.7 mg/dL 0.2-1.2 Chemistry (test code=DBILI) 0.6 mg/dL 0.1-0.3 Chemistry (test code=TP) 5.9 g/dL 6.0-8.3 Chemistry (test code=ALB) 3.4 g/dL 3.5-5.0 Chemistry (test code=ALP) 635 U/L 40-150 Chemistry (test code=AST) 57 U/L 5-34 Chemistry (test code=ALT) 92 U/L 8-55 [id number] 06:08:00 Test Item Value Reference Range Comments [...] code=GLU-T) Chemistry (test code=CA) 8.5 mg/dL 7.8-10.44 [id number] 06:06:00 Test Item Value Reference Range Comments Chemistry (test code=TBILI) 0.9 mg/dL 0.2-1.2 Chemistry (test code=DBILI) 0.7 mg/dL 0.1-0.3 Chemistry (test code=TP) 6.1 g/dL 6.0-8.3 Chemistry (test code=ALB) 3.5 g/dL 3.5-5.0 Chemistry (test code=ALP) 766 U/L 40-150 Chemistry (test code=AST) 100 U/L 5-34 Chemistry (test code=ALT) 129 U/L 8-55 [id number] 05:57:00 Test Item Value Reference Range Comments [...] 0.0-0.7 Hematology (test code=BASO#) 0.0 thou/uL 0.0-0.2 [id number] 05:55:00 Test Item Value Reference Range Comments Coagulation (test 13.5 SEC 12.0-14.7 code=PT-T) Coagulation (test 1.0 ATTENTION: READ code=INR) CAREFULLY -The recommended therapeutic ranges for oral anticoagulanttreatments are: Low Intensity: 1.5 - 2.0 Moderate Intensity: 2.0 - 3.0 High Intensity (1): 2.5 - 3.5 High Intensity (2): 3.0 - 4.0 CRITICAL: > 4.0 Anticoagulant? [id number] 05:36:00 Test Item Value Reference Range Comments [...] code=GLU-T) Chemistry (test code=CA) 8.9 mg/dL 7.8-10.44 [id number] 05:33:00 Test Item Value Reference Range Comments Chemistry (test code=TBILI) 0.9 mg/dL 0.2-1.2 Chemistry (test code=DBILI) 0.6 mg/dL 0.1-0.3 Chemistry (test code=TP) 6.8 g/dL 6.0-8.3 Chemistry (test code=ALB) 3.8 g/dL 3.5-5.0 Chemistry (test code=ALP) 864 U/L 40-150 Chemistry (test code=AST) 147 U/L 5-34 Chemistry (test code=ALT) 160 U/L 8-55 [id number] 05:28:00 Test Item Value Reference Range Comments [...] code=BASO#) 0.1 thou/uL 0.0-0.2 Chemistry - Elizabeth [id number] 13:02:00 Test Item Value Reference Range Comments Chemistry - Elizabeth Negative Negative Testing (test code=ANASC) Chemistry - Elizabeth Negative Negative SYMPHONY SCREEN INCLUDES: Testing (test SIDDIQUI, SS-A/Ro, SS-B/La, code=ANASYM) U1RNP,RNP70, SCL-70, CENP, Meka-1 Chemistry - Elizabeth 0.10 Ratio <0.7 Negative Testing (test code=ANASYMQUANT) Chemistry - Elizabeth 3.1 IU/mL <10 Negative Testing (test code=DSDNAIGG) Chemistry - Elizbaeth dsDNA Less than Testing (test 10.0 IU/mL=Negative [...] NEW METHODOLOGY.Method: Enzyme Linked Fluorescent Immunoassay (Elizabeth)References: [employer] Elizabeth Package Inserts - Directions forUse, June, July 2016, [employer]. [id number] 05:00:00 Test Item Value Reference Range Comments Chemistry (test code=TBILI) 0.9 mg/dL 0.2-1.2 Chemistry (test code=DBILI) 0.6 mg/dL 0.1-0.3 Chemistry (test code=TP) 6.9 g/dL 6.0-8.3 Chemistry (test code=ALB) 3.9 g/dL 3.5-5.0 Chemistry (test code=ALP) 837 U/L 40-150 Chemistry (test code=AST) 117 U/L 5-34 Chemistry (test code=ALT) 144 U/L 8-55 Dorqglbeq7259-54-08 04:50:00 Test Item Value Reference Range Comments [...] code=GLU-T) Chemistry (test code=CA) 8.4 mg/dL 7.8-10.44 [id number] 04:39:00 Test Item Value Reference Range Comments [...] 0.0-0.7 Hematology (test code=BASO#) 0.0 thou/uL 0.0-0.2 [id number] 17:07:00 Test Item Value Reference Range Comments Chemistry (test code=IGG) 1032.00 mg/dL 552-1631 [id number] 17:07:00 Test Item Value Reference Range Comments Chemistry (test code=IGM) 215.00 mg/dL 33-293 [id number] 00:50:00 Test Item Value Reference Range Comments [...] Negative Urine Source: Urine Clean CatchChemistry - Ypquswjt2176-04-33 00:25:00 Test Item Value Reference Range Comments Chemistry - Specials (test code=THEPAIGM) Non-Reactive NonReactive Chemistry - Specials (test code=THBSAG) Non-Reactive S/CO NonReactive Chemistry - Specials (test code=INTHBCM) Non-Reactive NonReactive Chemistry - Specials (test code=INTHEPC) Non-Reactive NonReactive [id number] 22:12:00 Test Item Value Reference Range Comments [...] 5-34 Chemistry (test code=ALT) 196 U/L 8-55 [id number] 22:12:00 Test Item Value Reference Range Comments Chemistry (test code=LIP) 22 U/L 8-78 [id number] 21:50:00 Test Item Value Reference Range Comments [...] 0.0-0.7 Hematology (test code=BASO#) 0.1 thou/uL 0.0-0.2 [id number] 22:49:00 Test Item Value Reference Range Comments [...] 5-34 Chemistry (test code=ALT) 78 U/L 8-55 [id number] 22:49:00 Test Item Value Reference Range Comments Chemistry (test code=LIP) 12 U/L 8-78 [id number] 22:24:00 Test Item Value Reference Range Comments [...] 0.0-0.7 Hematology (test code=BASO#) 0.0 thou/uL 0.0-0.2 [id number] 22:00:00 Test Item Value Reference Range Comments [...] code=UABLD) Negative Negative Urine Source: Urine Clean WrvxlJygdtgvw1387-84-24 09:28:00 Test Item Value Reference Range Comments Accuchek (test code=ACU) 99 mg/dL 70-110 [id number] 09:14:00 Test Item Value Reference Range Comments [...] code=UABLD) Negative Negative Urine Source: Urine Clean BotqjMsrhmxwqzs9771-10-37 21:28:00 Test Item Value Reference Range Comments [...] code=UABLD) Negative Negative Urine Source: Urine Clean [id number] 21:09:00 Test Item Value Reference Range Comments [...] 5-34 Chemistry (test code=ALT) 95 U/L 8-55 Sruvazhuq0828-26-01 21:09:00 Test Item Value Reference Range Comments Chemistry (test code=LIP) 39 U/L 8-78 [id number] 20:49:00 Test Item Value Reference Range Comments [...] 0.0-0.7 Hematology (test code=BASO#) 0.0 thou/uL 0.0-0.2 [id number] 21:34:00 Test Item Value Reference Range Comments [...] held fortwo weeks. Urine Source: Urine Clean AxkedBkqwulchqw0461-04-97 19:17:00 Test Item Value Reference Range Comments [...] (test code=UABLD) Negative Negative Urine Source: Urine JjrxjuVpfmazcbt2019-72-60 18:48:00 Test Item Value Reference Range Comments [...] 5-34 Chemistry (test code=ALT) 84 U/L 8-55 [id number] 18:48:00 Test Item Value Reference Range Comments Chemistry (test code=JORGE) 53.0 U/L 25-125 [id number] 18:48:00 Test Item Value Reference Range Comments Chemistry (test code=LIP) 10 U/L 8-78 [id number] 18:19:00 Test Item Value Reference Range Comments [...] Hematology (test code=BASO#) 0.1 thou/uL 0.0-0.2 Culture, [id number] 10:22:00 Test Item Value Reference Range Comments Culture, Urine (test code=URC) NF Culture, Urine (test code=URC1) 10 MSF [id number] 17:38:00 Test Item Value Reference Range Comments Chemistry (test code=PHOS) 2.9 mg/dL 2.3-4.7 [id number] 17:04:00 Test Item Value Reference Range Comments [...] 95 U/L 8-55 Chemistry - BNP, HgbA1c, [id number] 17:04:00 Test Item Value Reference Range Comments Chemistry - BNP, HgbA1c, 4.9 % 4.0-6.0 Therapeutic goals for glycemic PTHi (test code=ZAOR7OE) control (ADA)Adults:- Goal of therapy: Less than 7.0% HbA1c- Action suggested: Greater than 8.0% VaF3cBuldmyclm patients:- Toddlers and preschoolers: Less than 8.5% (but Greater than 7.5%)- School age (6-12 years): Less than 8%- Adolescents and young adults (13-19 years): Less than 7.5%Diagnosing diabetes (ADA)- HbA1c: Greater than or equal to 6.5% Values of 5.7 - 6.4% indicate HIGH risk for developing DiabetesInternational Expert Committee Report on the Role of the V9VAmfre in the Diagnosis of Diabetes. Diabetes Care 2009July;32(7):1327-1334ADA, Diagnosis classification of diabetes mellitus.Diabetes Care 2010; 33 Suppl 1:S62 [id number] 16:59:00 Test Item Value Reference Range Comments Chemistry (test code=CRP) 1.16 mg/dL =or < 0.5 What test does the doctor want? C-REACTIVE PROTEIN (CRP)[id number] 16: 53:00 Test Item Value Reference Range [...] HPF None Seen Urine Source: Urine Clean AzrkzAxowmweqsf0152-13-13 16:46:00 Test Item Value Reference Range Comments [...] 0.0-0.7 Hematology (test code=BASO#) 0.1 thou/uL 0.0-0.2 [id number] 21:59:00 Test Item Value Reference Range Comments [...] Urine Clean CatchSepsis - Lactic Acid >2 [id number] 23:59: 00 Test Item Value Reference Range Comments Sepsis - Lactic Acid >2 Additional Lactate testing will be performed Rflx (test code=ECADU0G) in 3 hrs according to the SepsisProtocol. [id number] 21:12:00 Test Item Value Reference Range Comments Chemistry (test code=JORGE) 59.0 U/L 25-125 [id number] 20:59:00 Test Item Value Reference Range Comments [...] 5-34 Chemistry (test code=ALT) 87 U/L 8-55 [id number] 20:59:00 Test Item Value Reference Range Comments Chemistry (test code=LIP) 32 U/L 8-78 Chemistry - Ftcxyyq3643-55-17 20:59:00 Test Item Value Reference Range Comments Chemistry - Lactate (test code=LACTSEP-T) 2.1 mmol/L 0.5-2.2 [id number] 20:43:00 Test Item Value Reference Range Comments [...] (test code=UABLD) Negative Negative Urine Source: Urine RpimttLdswdrcxpw1330-99-11 20:37:00 Test Item Value Reference Range Comments [...]
--- OUTSIDE RECORDS SUMMARY | 2019-03-24 09:13 | XMS REPORT ---
:1960 Author Organization [employer] Care Team Providers Name Role Phone Slade, Na Provider Role Unavailable Allergies No Known Allergies Problems Problem Type Condition Code Onset Dates Condition Status Assessment Essential hypertension I10 Active Problem Anxiety F41.9 Active Problem Chronic pancreatitis, unspecified K86.1 Active pancreatitis type Problem 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 Active Problem Primary insomnia F51.01 Active Problem Osteoarthritis involving multiple M15.9 Active joints on both sides of body Problem Essential hypertension I10 Active Problem Grieving F43.21 Active Problem Gastroesophageal reflux disease K21.9 Active without esophagitis Medications Medication Code Code Instructions Start End Date Status Dosage System Date Losartan [facility] [id number] 100 MG Orally Active 1 tablet Potassium Once a day Results No Known Results Summary Purpose [employer] Submission
--- OUTSIDE RECORDS SUMMARY | 2019-03-24 09:13 | XMS REPORT ---
:1960 Author Organization [employer] Care Team Providers Name Role Phone Slade, Na Provider Role Unavailable Allergies, Adverse Reactions, Alerts Substance Reaction Event Type N.K.D.A. Info Not Available Non Drug Allergy Problems Problem Type Condition Code Onset Dates Condition Status Assessment Acute bronchitis, unspecified J20.9 Active organism Problem Anxiety F41.9 Active Problem Chronic pancreatitis, unspecified K86.1 Active pancreatitis type Problem 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 Active Problem Primary insomnia F51.01 Active Problem Osteoarthritis involving multiple M15.9 Active joints on both sides of body Problem Essential hypertension I10 Active Problem Grieving F43.21 Active Problem Gastroesophageal reflux disease K21.9 Active without esophagitis Assessment Acute allergic rhinitis J30.9 Active Assessment Sore throat J02.9 Active Assessment Wheezing on auscultation R06.2 Active Assessment Anxiety F41.9 Active Assessment Cough productive of yellow sputum R05 Active Assessment 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 Active Assessment Essential hypertension I10 Active Medications Medication Code Code Instructions Start End Status Dosage System Date Date Lexapro [facility] 95443208712 20 MG Orally Active 1 tablet Once a day Seroquel XR [facility] 38126164170 300 MG Orally Active 1 tablet Once a day in the evening Phenergan [facility] [address]-58 25mg Po Q 12 Active one tablet hours Doxycycline ND 43679662112 100 MG Orally Active 1 capsule Hyclate twice a day Azithromycin ND 75780283038 250 MG Orally Active 2 tablets Once a day on the first day, then 1 tablet daily for 4 days Losartan ND 01133764968 100 MG Orally Active 1 tablet Potassium Once a day Robaxin-750 [facility] 54133297052 750 MG Orally Active 1 tablet every 4 hrs Flonase [facility] 62984367490 50 MCG/ACT Active 2 spray in Nasally Once a each day nostril Diazepam ND 46463168879 5 MG Orally Active 1 tablet Once a day prn as needed panic attacks Cheratussin AC [facility] 42441940441 100-10 MG/5ML Mar 02, Mar 12, Active 5 ml Orally every 2018 2019 hours prn cough PredniSONE [facility] 71673910642 10 MG Orally Active 2 tablet Once a day daily x 5 days then one tablet daily x 5 days Gabapentin [facility] 75308463866 300 MG Orally Active 1 capsule Once a day Results No Known Results Summary Purpose e[employer]Works Submission
[2019-03-24] MEDS ORDERED: ONDANSETRON 4 MG/2 ML VIAL ONE (09:28)
[2019-03-24] MEDS ORDERED: NA CHLORIDE 0.9% 1,000 ML ONE (09:28)
[2019-03-24] MEDS ORDERED: MEPERIDINE HCL 50 MG/ML ONE (09:28)
[2019-03-24 09:50] LABS: Absolute Lymphocytes (CBC) 1.3 K/uL (0.7-4.9); Basophils % 0.7 % (0-1.3); Lymphocytes % 31.2 % (15.3-44.8); MPV 7.5 fL (7.6-11.3); RBC Red Blood Cell Count 3.33 M/uL (3.86-4.86)
[2019-03-24 09:58] LABS: Albumin 3.1 g/dL (3.4-5.0); Bilirubin Direct 0.4 mg/dL (0-0.2); Bilirubin Total 0.7 mg/dL (0.2-1.0); Potassium 4.1 mmol/L (3.5-5.1); Protein, Total 7.3 g/dL (6.4-8.2)
--- NOTE | 2019-03-24 10:44 | ER ---
Nurse's Notes [facility] Name: Yessenia Aleman Age: 58 yrs Sex: Female : 1960 Arrival Date: 03/24/2019 Time: 09:06 Bed 6 Private MD: Diagnosis: Diarrhea, unspecified;Unspecified abdominal pain;Dehydration Presentation: 03/24 09:17 Presenting complaint: Patient states: epigastric pain, n/d x 1 week. Transition of sv care: patient was not received from another setting of care. Onset of symptoms was March 17, 2019. Risk Assessment: Do you want to hurt yourself or someone else? Patient reports no desire to harm self or others. Care prior to arrival: None. 09:17 Method Of Arrival: Ambulatory sv 09:17 Acuity: HOLLI 2 sv 09:21 Initial Sepsis Screen: Does the patient meet any 2 criteria? No. Patient's initial sv sepsis screen is negative. Does the patient have a suspected source of infection? Yes: Acute abdominal pain. Historical: - Allergies: 09:18 Codeine; sv - PMHx: 09:18 Anxiety; Arthritis; biliary disease; CHF; Chronic Pancreatitis; Hypertension; sv Pancreatitis; Pneumonia; biliary chirrosis; - PSHx: 09:18 Cholecystectomy; Appendectomy; Tubal ligation; blie duct stenting x 5; sv - Immunization history:: Adult Immunizations up to date. - Ebola Screening: : No symptoms or risks identified at this time. - Social history:: Smoking status: Patient/guardian denies using tobacco. - Family history:: not pertinent. - Hospitalizations: : No recent hospitalization is reported. Screenin:19 Abuse screen: Denies threats or abuse. Denies injuries from another. Nutritional sv screening: No deficits noted. Tuberculosis screening: No symptoms or risk factors identified. Fall Risk None identified. Assessment: 09:15 General: Appears uncomfortable, Behavior is calm, cooperative. Pain: Complains of pain aa5 in epigastric area and right upper quadrant Pain radiates to right lateral abdomen Pain currently is 9 out of 10 on a pain scale. Quality of pain is described as sharp, Pain began 1 week ago Is continuous. Neuro: Level of Consciousness is awake, alert, obeys commands, Oriented to person, place, time, situation. Cardiovascular: Patient's skin is warm and dry. Respiratory: Airway is patent Respiratory effort is even, unlabored, Respiratory pattern is regular, symmetrical. GI: Abdomen is round non-distended, Bowel sounds present X 4 quads. Abd is soft X 4 quads Abdomen is tender to palpation in right upper quadrant Reports diarrhea, nausea, since 1 week ago. Denies vomiting. : No signs and/or symptoms were reported regarding the genitourinary system. EENT: No signs and/or symptoms were reported regarding the EENT system. Derm: Skin is pink, warm \T\ dry. Musculoskeletal: Range of motion: intact in all extremities. 09:35 Reassessment: Patient is alert, oriented x 3, equal unlabored respirations, skin aa5 warm/dry/pink. Patient states feeling better. 11:00 Reassessment: Patient is alert, oriented x 3, equal unlabored respirations, skin aa5 warm/dry/pink. Vital Signs: 09:18 BP 219 / 104; Pulse 77; Resp 20; Temp 98.3(O); Pulse Ox 98% ; Height 5 ft. 0 in. sv (152.40 cm); Pain 9/10; 09:46 BP 161 / 96; Pulse 77; Resp 18 S; Pulse Ox 97% on R/A; aa5 10:36 BP 156 / 92; Pulse 64; Resp 18; Pulse Ox 97% ; sv ED Course: 09:06 Patient arrived in ED. as 09:14 Jacquie Abel, RN is Primary Nurse. aa5 09:15 Meek Fitzpatrick MD is Attending Physician. rn 09:18 Triage completed. sv 09:19 ED physician to see patient. sv 09:19 Arm band placed on. sv 09:19 Patient has correct armband on for positive identification. Bed in low position. Call sv light in reach. Adult w/ patient. Pulse ox on. NIBP on. Door closed. Head of bed elevated. 09:25 Initial lab(s) drawn, by me, sent to lab. Inserted saline lock: 20 gauge in right aa5 wrist, using aseptic technique. Blood collected. 09:43 No provider procedures requiring assistance completed. aa5 11:01 IV discontinued, intact, bleeding controlled, No redness/swelling at site. Pressure aa5 dressing applied. Administered Medications: 09:27 Drug: Zofran 4 mg Route: IVP; Site: right wrist; aa5 09:35 Follow up: Response: No adverse reaction aa5 09:27 Drug: NS 0.9% 1000 ml Route: IV; Rate: 1000 ml; Site: right wrist; aa5 10:44 Follow up: IV Status: Completed infusion; IV Intake: 1000ml aa5 09:29 Drug: Demerol 50 mg Route: IVP; Site: right wrist; aa5 09:35 Follow up: Response: No adverse reaction aa5 Intake: 10:44 IV: 1000ml; Total: 1000ml. aa5 Outcome: :44 Discharge ordered by . rn 11:01 Discharged to home ambulatory, with family. aa5 11:01 Condition: stable 11:01 Discharge instructions given to patient, Instructed on discharge instructions, follow up and referral plans. medication usage, Demonstrated understanding of instructions, follow-up care, medications, Prescriptions given X 2. 11:01 Patient left the ED. aa5 Signatures: Barbie Colindres RN RN sv Martinez, Amelia as Nieto, Roman, MD MD rn Calderon, Audri, RN RN aa5 Corrections: (The following items were deleted from the chart) 09:19 09:17 Acuity: HOLLI 3 sv sv 09:21 09:18 BP 219 / 104; Pulse 77bpm; Resp 20bpm; Pulse Ox 98%; Height 5 ft. 0 in.; Pain sv 12/23; sv
--- NOTE | 2019-03-24 10:45 | EDPHYS ---
Physician Documentation [facility] Name: Yessenia Aleman Age: 58 yrs Sex: Female : 1960 Arrival Date: 03/24/2019 Time: 09:06 Bed 6 Private MD: ED Physician Meek Fitzpatrick HPI: 03/24 09:22 This 58 yrs old Female presents to ER via Ambulatory with complaints of rn Abdominal Pain, Vomiting/Diarrhea. 09:22 The patient presents to the emergency department with nausea, vomiting, diarrhea, rn abdominal pain, of the epigastric area. Onset: The symptoms/episode began/occurred 1 week(s) ago. Possible causes: unknown. The symptoms are aggravated by nothing. The symptoms are alleviated by nothing. Severity of symptoms: At their worst the symptoms were mild. 09:23 The patient has experienced similar episodes in the past. The patient has not recently rn seen a physician. Reports abd cramping, nausea, diarrhea, non-bloody, feels different from pancreatitis. . Historical: - Allergies: 09:18 Codeine; sv - PMHx: 09:18 Anxiety; Arthritis; biliary disease; CHF; Chronic Pancreatitis; Hypertension; sv Pancreatitis; Pneumonia; biliary chirrosis; - PSHx: 09:18 Cholecystectomy; Appendectomy; Tubal ligation; blie duct stenting x 5; sv - Immunization history:: Adult Immunizations up to date. - Ebola Screening: : No symptoms or risks identified at this time. - Social history:: Smoking status: Patient/guardian denies using tobacco. - Family history:: not pertinent. - Hospitalizations: : No recent hospitalization is reported. ROS: 09:23 Constitutional: Negative for fever, chills, and weight loss, Eyes: Negative for injury, rn pain, redness, and discharge, Cardiovascular: Negative for chest pain, palpitations, and edema, Respiratory: Negative for shortness of breath, cough, wheezing, and pleuritic chest pain, Abdomen/GI: + abd cramping, nausea, and diarrhea MS/Extremity: Negative for injury and deformity, Skin: Negative for injury, rash, and discoloration, Neuro: Negative for headache, weakness, numbness, tingling, and seizure. Exam: 09:23 Constitutional: This is a well developed, well nourished patient who is awake, alert rn Head/Face: Normocephalic, atraumatic. ENT: MMM Cardiovascular: Regular rate and rhythm. No pulse deficits. Respiratory: No increased work of breathing, no retractions or nasal flaring. Abdomen/GI: soft, + mild epigastric and left sided abd tenderness, no rebound, no masses MS/ Extremity: Pulses equal, no cyanosis. Neurovascular intact. Full, normal range of motion. Equal circumference. Neuro: Awake and alert, GCS 15, oriented to person, place, time, and situation. Cranial nerves II-XII grossly intact. Motor strength 5/5 in all extremities. Sensory grossly intact. Vital Signs: 09:18 BP 219 / 104; Pulse 77; Resp 20; Temp 98.3(O); Pulse Ox 98% ; Height 5 ft. 0 in. sv (152.40 cm); Pain 9/10; 09:46 BP 161 / 96; Pulse 77; Resp 18 S; Pulse Ox 97% on R/A; aa5 10:36 BP 156 / 92; Pulse 64; Resp 18; Pulse Ox 97% ; sv MDM: 09:16 Patient medically screened. rn 10:42 Differential diagnosis: Nonspecific abd pain, gastritis, pancreatitis, viral rn gastroenteritis, gastroenteritis. Data reviewed: vital signs, nurses notes, lab test result(s), and as a result, I will discharge patient. Counseling: I had a detailed discussion with the patient and/or guardian regarding: the historical points, exam findings, and any diagnostic results supporting the discharge/admit diagnosis, lab results, the need for outpatient follow up, to return to the emergency department if symptoms worsen or persist or if there are any questions or concerns that arise at home. Response to treatment: the patient's symptoms have mildly improved after treatment, and as a result, I will discharge patient. Special discussion: Based on the patient's Hx, exam, and Dx evaluation, there is no indication for emergent surgery or inpatient Tx. It is understood by the patient/guardian that if the Sx's persist or worsen they need to return immediately for re-evaluation. I discussed with the patient/guardian in detail that at this point there is no indication for admission to the hospital. It is understood, however, that if the symptoms persist or worsen the patient needs to return immediately for re-evaluation. ED course: No gross changes in labs, has been here multiple times in past for similar symptoms, today more consistent with viral syndrome or diarrheal episodes that have been going around lately, told her will dc with phenergan and return precautions given, possibly another week of symptoms. . 03/24 09:21 Order name: Basic Metabolic Panel; Complete Time: 10: rn 03/24 09:21 Order name: CBC with Diff; Complete Time: 10: rn 03/24 09:21 Order name: Hepatic Function; Complete Time: 10: rn 03/24 09:21 Order name: Lipase; Complete Time: 10: rn 03/24 09:23 Order name: Stool Culture rn 03/24 09:21 Order name: IV Saline Lock; Complete Time: : rn 03/24 09:21 Order name: Labs collected and sent; Complete Time: : rn Administered Medications: 09:27 Drug: Zofran 4 mg Route: IVP; Site: right wrist; aa5 09:35 Follow up: Response: No adverse reaction aa5 09:27 Drug: NS 0.9% 1000 ml Route: IV; Rate: 1000 ml; Site: right wrist; aa5 10:44 Follow up: IV Status: Completed infusion; IV Intake: 1000ml aa5 09:29 Drug: Demerol 50 mg Route: IVP; Site: right wrist; aa5 09:35 Follow up: Response: No adverse reaction aa5 Disposition: 03/24/19 10:44 Discharged to Home. Impression: Diarrhea, unspecified, Unspecified abdominal pain, Dehydration. - Condition is Stable. - Discharge Instructions: Abdominal Pain, Adult, Diarrhea, Adult. - Prescriptions for Bentyl 20 mg Oral Tablet - take 1 tablet by ORAL route every 6 hours As needed; 20 tablet. promethazine 25 mg Oral Tablet - take 1 tablet by ORAL route every 6 hours As needed; 20 tablet. - Medication Reconciliation Form, Thank You Letter, Antibiotic Education, Prescription Opioid Use form. - Follow up: Private Physician; When: As needed; Reason: Recheck today's complaints, Re-evaluation by your physician. - Problem is new. - Symptoms have improved. Signatures: Dispatcher [employer] Barbie Garcia RN RN sv Nieto, Roman, MD MD rn Calderon, Audri, RN RN aa5 Corrections: (The following items were deleted from the chart) 11:01 10:44 03/24/2019 10:44 Discharged to Home. Impression: Diarrhea, unspecified; aa5 Unspecified abdominal pain; Dehydration. Condition is Stable. Forms are Medication Reconciliation Form, Thank You Letter, Antibiotic Education, Prescription Opioid Use. Follow up: Private Physician; When: As needed; Reason: Recheck today's complaints, Re-evaluation by your physician. Problem is new. Symptoms have improved. rn
[2019-03-24 12:17] VITALS: O2SAT 97
[2019-03-24 12:19] VITALS: TEMP 98.3
[2019-03-24 12:21] VITALS: BP 156/92
== END 2019-03-24 11:01 | disposition home or self-care (01) ==
LOC: ER 09:04
DX: E86.0 Dehydration (principal); R10.9 Unspecified abdominal pain; I10 Essential (primary) hypertension; Z88.5 Allergy status to narcotic agent
CPT/HCPCS: 96361; 87045; 85025; 80048; 36415; 80076; 87046; 83690; 96375; 96374; 99284; J2175; J7030; J2405

== ENCOUNTER 2019-06-21 15:53 | Emergency (ER) | payer OTHER ==
--- OUTSIDE RECORDS SUMMARY | 2019-06-21 15:58 | XMS REPORT ---
:1960 [facility] Address [address] [place] [address] Care Team Providers Name Role Phone Gisselle Mai ENTRY MANAGER-C Unavailable Unavailable Boogie Cox Unavailable Unavailable PROVIDER, [...] was reported as final has been changed. Bjkytbimrs5503-21-90 22:53:00 Test Item Value Reference Range Comments [...] 0-3 Hyaline code=UACAST) LPF Urine Source: Urine [id number] SURGICAL PATHOLOGY, LEVEL [id number] 14:31:00-- [place] [address] Laboratory Printed: 07/09/17 143[facility] DAEM[facility] Page: 1 Patient: ZEKE ROMERO Birthdate: 1960 Age/Sex: 56/F Spec#: [id number]: HERMES SALAZAR Specimen Date: 07/08/17 [...] Pathologist: Kelvin Conway Entered by:07/09/17 - 1430 [facility] PROCEDURES: 42068, 40788/4 Patient: ZEKE ROMERO ReLoc: T4-A MR#: [id number] CONTINUED ON NEXT PAGE Dis: 07/09/17ta: DIS IN [address] [address] Laboratory Printed: 07/09/17 [facility] F[facility]: Page: 2 Patient: ZEKE ROMERO [id number] (Continued) GROSS DESCRIPTION A. LIVER BIOPSY LEFT [...] Dictated by: DANII SHAHID Entered by:07/08/17 - 131[facility].YGP MICROSCOPIC DESCRIPTION A microscopic examination was performed to arrive at the diagnostic conclusion reported. Signed (Electronically Signed) Kelvin August 15 Patient: ZEKE ROMERO Re07/03/17Loc: T4-A MR#: [id number] END OF REPORT Dis: 07/09/17ta: DIS WHJvgxxmntr8208-25-86 05:13:00 Test Item Value Reference Range Comments [...] (test code=ALT) 75 U/L 8-55 Reference Lab Hyavusz7154-24-53 04:14:00 Test Item Value Reference Range Comments Reference Lab Testing 10 U/mL 0-35 Laurent ECLIA methodologyPerformed at: (test onhs=JK463) - [address] [id number] Director: Chico Suero MD, Phone: [phone] Reference Lab Qagrvvy0604-05-13 16:14:00 Test Item Value Reference Range Comments Reference Lab Testing (test 128.5 Units 0.0-20.0 code=MARLON) Negative 0.0 - 20.0 Equivocal 20.1 - 24.9 Positive >24.9Mitochondrial (M2) Antibodies are found in 90-96% ofpatients with primary biliary cirrhosis.Performed at: [facility] [id number] Director: Chester Rider MD, Phone: [phone] Reference Lab Oxnztsm5825-60-22 16:14:00 Test Item Value Reference Range Comments [...] up testing of positive sera with both NM-3 and MPO-ANCA enzyme immunoassays. As many as 5% serumsamples are positive only by EIA. Ref. AM J Clin Wlwiay1075;111:507-513. Reference Lab Testing <1:20 titer Neg:<1:20 The atypical pANCA pattern has (test code=ATANCA) been observed in asignificant percentage of patients with ulcerative colitis,primary sclerosing cholangitis and autoimmune hepatitis.Performed at: [facility] [id number] Director: Chester Rider MD, Phone: [phone] Iowpxvxvo1602-13-85 05:12:00 Test Item Value Reference Range Comments [...] (test 86 U/L 8-55 code=ALT) Reference Lab Mlqdgzh3805-69-42 22:07:00 Test Item Value Reference Range Comments Reference Lab Testing (test 785 IU/L 39-117 code=ISOALKT) Reference Lab Testing (test 25 % 14-68 code=ISOALKBT) Reference Lab Testing (test 74 % 18-85 code=ISOALKLT) Reference Lab Testing (test 1 % 0-18 Performed at: [facility] code=ISOALKIT) [address] [id number] Director: Chico Suero MD, Phone: [phone] at: [facility] [id number] Director: Chester Rider MD, Phone: [phone] Zvjsfpmxm9936-30-96 11:48:00 Test Item Value Reference Range Comments Chemistry (test code=TBILI) 0.7 mg/dL 0.2-1.2 Chemistry (test code=DBILI) 0.6 mg/dL 0.1-0.3 Chemistry (test code=TP) 5.9 g/dL 6.0-8.3 Chemistry (test code=ALB) 3.4 g/dL 3.5-5.0 Chemistry (test code=ALP) 635 U/L 40-150 Chemistry (test code=AST) 57 U/L 5-34 Chemistry (test code=ALT) 92 U/L 8-55 Hptxpdrog1917-80-86 06:08:00 Test Item Value Reference Range Comments [...] code=GLU-T) Chemistry (test code=CA) 8.5 mg/dL 7.8-10.44 Ozgizsnxi9611-72-60 06:06:00 Test Item Value Reference Range Comments Chemistry (test code=TBILI) 0.9 mg/dL 0.2-1.2 Chemistry (test code=DBILI) 0.7 mg/dL 0.1-0.3 Chemistry (test code=TP) 6.1 g/dL 6.0-8.3 Chemistry (test code=ALB) 3.5 g/dL 3.5-5.0 Chemistry (test code=ALP) 766 U/L 40-150 Chemistry (test code=AST) 100 U/L 5-34 Chemistry (test code=ALT) 129 U/L 8-55 Xbkesokome9360-99-58 05:57:00 Test Item Value Reference Range Comments [...] 0.0-0.7 Hematology (test code=BASO#) 0.0 thou/uL 0.0-0.2 Cxwrldfdhqy6564-58-93 05:55:00 Test Item Value Reference Range Comments Coagulation (test 13.5 SEC 12.0-14.7 code=PT-T) Coagulation (test 1.0 ATTENTION: READ code=INR) CAREFULLY -The recommended therapeutic ranges for oral anticoagulanttreatments are: Low Intensity: 1.5 - 2.0 Moderate Intensity: 2.0 - 3.0 High Intensity (1): 2.5 - 3.5 High Intensity (2): 3.0 - 4.0 CRITICAL: > 4.0 Anticoagulant? NOQZVpslfarfs8580-78-93 05:36:00 Test Item Value Reference Range Comments [...] code=GLU-T) Chemistry (test code=CA) 8.9 mg/dL 7.8-10.44 Tmqoqevxr1829-21-67 05:33:00 Test Item Value Reference Range Comments Chemistry (test code=TBILI) 0.9 mg/dL 0.2-1.2 Chemistry (test code=DBILI) 0.6 mg/dL 0.1-0.3 Chemistry (test code=TP) 6.8 g/dL 6.0-8.3 Chemistry (test code=ALB) 3.8 g/dL 3.5-5.0 Chemistry (test code=ALP) 864 U/L 40-150 Chemistry (test code=AST) 147 U/L 5-34 Chemistry (test code=ALT) 160 U/L 8-55 Nysgvnwjfg2513-07-30 05:28:00 Test Item Value Reference Range Comments [...] code=BASO#) 0.1 thou/uL 0.0-0.2 Chemistry - Elizabeth Puvcydp7281-28-07 13:02:00 Test Item Value Reference Range Comments [...] NEW METHODOLOGY.Method: Enzyme Linked Fluorescent Immunoassay (Elizabeth)References: [employer]s - Directions forUse, June, July 2016, [employer]. Eihdnmqwq7986-46-17 05:00:00 Test Item Value Reference Range Comments Chemistry (test code=TBILI) 0.9 mg/dL 0.2-1.2 Chemistry (test code=DBILI) 0.6 mg/dL 0.1-0.3 Chemistry (test code=TP) 6.9 g/dL 6.0-8.3 Chemistry (test code=ALB) 3.9 g/dL 3.5-5.0 Chemistry (test code=ALP) 837 U/L 40-150 Chemistry (test code=AST) 117 U/L 5-34 Chemistry (test code=ALT) 144 U/L 8-55 Wukhtitpd4199-39-42 04:50:00 Test Item Value Reference Range Comments [...] code=GLU-T) Chemistry (test code=CA) 8.4 mg/dL 7.8-10.44 Lelqarnzpd6818-89-01 04:39:00 Test Item Value Reference Range Comments [...] 0.0-0.7 Hematology (test code=BASO#) 0.0 thou/uL 0.0-0.2 Zhuoygoyu4619-36-94 17:07:00 Test Item Value Reference Range Comments Chemistry (test code=IGG) 1032.00 mg/dL 552-1631 Cubzugeqb3500-60-03 17:07:00 Test Item Value Reference Range Comments Chemistry (test code=IGM) 215.00 mg/dL 33-293 Vuyusxoogv7666-55-52 00:50:00 Test Item Value Reference Range Comments [...] Negative Urine Source: Urine Clean [employer] - Zhedppnz9437-49-84 00:25:00 Test Item Value Reference Range Comments Chemistry - Specials (test code=THEPAIGM) Non-Reactive NonReactive Chemistry - Specials (test code=THBSAG) Non-Reactive S/CO NonReactive Chemistry - Specials (test code=INTHBCM) Non-Reactive NonReactive Chemistry - Specials (test code=INTHEPC) Non-Reactive NonReactive Exiqtncqn2257-45-89 22:12:00 Test Item Value Reference Range Comments [...] 5-34 Chemistry (test code=ALT) 196 U/L 8-55 Thswyyvwd1048-43-52 22:12:00 Test Item Value Reference Range Comments Chemistry (test code=LIP) 22 U/L 8-78 Oyrqlaeqjn0559-45-57 21:50:00 Test Item Value Reference Range Comments [...] 0.0-0.7 Hematology (test code=BASO#) 0.1 thou/uL 0.0-0.2 Bqvbqrsxv4027-91-11 22:49:00 Test Item Value Reference Range Comments [...] 5-34 Chemistry (test code=ALT) 78 U/L 8-55 Rnjtbdurp3673-81-08 22:49:00 Test Item Value Reference Range Comments Chemistry (test code=LIP) 12 U/L 8-78 Wrnteqjcln8841-14-89 22:24:00 Test Item Value Reference Range Comments [...] 0.0-0.7 Hematology (test code=BASO#) 0.0 thou/uL 0.0-0.2 Lugjyfkeaw1555-96-68 22:00:00 Test Item Value Reference Range Comments [...] code=UABLD) Negative Negative Urine Source: Urine Clean YiunxVmxkzguk1516-98-89 09:28:00 Test Item Value Reference Range Comments Accuchek (test code=ACU) 99 mg/dL 70-110 Zdgqpdpjin0260-19-42 09:14:00 Test Item Value Reference Range Comments [...] code=UABLD) Negative Negative Urine Source: Urine Clean LijwzQyzuontwgw9488-05-71 21:28:00 Test Item Value Reference Range Comments [...] code=UABLD) Negative Negative Urine Source: Urine Clean UpufcQkuyrrgmf5071-61-56 21:09:00 Test Item Value Reference Range Comments [...] 5-34 Chemistry (test code=ALT) 95 U/L 8-55 Asydhjoak2521-52-50 21:09:00 Test Item Value Reference Range Comments Chemistry (test code=LIP) 39 U/L 8-78 Bxryuauhlq0333-28-50 20:49:00 Test Item Value Reference Range Comments [...] 0.0-0.7 Hematology (test code=BASO#) 0.0 thou/uL 0.0-0.2 Eqquuidion5446-24-52 21:34:00 Test Item Value Reference Range Comments [...] held fortwo weeks. Urine Source: Urine Clean EaurnBennmjbksi3123-43-92 19:17:00 Test Item Value Reference Range Comments [...] (test code=UABLD) Negative Negative Urine Source: Urine ZrmqqwUjxzbhkwq1345-78-47 18:48:00 Test Item Value Reference Range Comments [...] 5-34 Chemistry (test code=ALT) 84 U/L 8-55 Ehoyycwbt9497-81-26 18:48:00 Test Item Value Reference Range Comments Chemistry (test code=JORGE) 53.0 U/L 25-125 Kxlrfnoak8246-90-24 18:48:00 Test Item Value Reference Range Comments Chemistry (test code=LIP) 10 U/L 8-78 Eseauwkwgg7455-50-64 18:19:00 Test Item Value Reference Range Comments [...] Hematology (test code=BASO#) 0.1 thou/uL 0.0-0.2 Culture, Nqpyo2357-41-26 10:22:00 Test Item Value Reference Range Comments Culture, Urine (test code=URC) NF Culture, Urine (test code=URC1) 10 MSF Agypibayk9889-56-64 17:38:00 Test Item Value Reference Range Comments Chemistry (test code=PHOS) 2.9 mg/dL 2.3-4.7 Ytkrstwwj7207-36-71 17:04:00 Test Item Value Reference Range Comments [...] 95 U/L 8-55 Chemistry - BNP, HgbA1c, FSKi0220-74-01 17:04:00 Test Item Value Reference Range Comments Chemistry - BNP, HgbA1c, 4.9 % 4.0-6.0 Therapeutic goals for glycemic PTHi (test code=COGW8WP) control (ADA)Adults:- Goal of therapy: Less than 7.0% HbA1c- Action suggested: Greater than 8.0% VnU6uItpjqziwf patients:- Toddlers and preschoolers: Less than 8.5% (but Greater than 7.5%)- School age (6-12 years): Less than 8%- Adolescents and young adults (13-19 years): Less than 7.5%Diagnosing diabetes (ADA)- HbA1c: Greater than or equal to 6.5% Values of 5.7 - 6.4% indicate HIGH risk for developing DiabetesInternational Expert Committee Report on the Role of the F8VBklwy in the Diagnosis of Diabetes. Diabetes Care 2009July;32(7):1327-1334ADA, Diagnosis classification of diabetes mellitus.Diabetes Care 2010; 33 Suppl 1:S62 Pcxdnthxc8901-13-83 16:59:00 Test Item Value Reference Range Comments Chemistry (test code=CRP) 1.16 mg/dL =or < 0.5 What test does the doctor want? C-REACTIVE PROTEIN (CRP)Apcsfdlnvj2232-61-34 16: 53:00 Test Item Value Reference Range [...] HPF None Seen Urine Source: Urine Clean TsexfVzeiutcejy0698-89-32 16:46:00 Test Item Value Reference Range Comments [...] 0.0-0.7 Hematology (test code=BASO#) 0.1 thou/uL 0.0-0.2 Zkzumflmrd0896-64-71 21:59:00 Test Item Value Reference Range Comments [...] Urine Clean CatchSepsis - Lactic Acid >2 Fbfe7232-06-11 23:59: 00 Test Item Value Reference Range Comments Sepsis - Lactic Acid >2 Additional Lactate testing will be performed Rflx (test code=RMSLX1Z) in 3 hrs according to the SepsisProtocol. Ygfmauxwp3173-98-23 21:12:00 Test Item Value Reference Range Comments Chemistry (test code=JORGE) 59.0 U/L 25-125 Ptbbiwegv7777-49-14 20:59:00 Test Item Value Reference Range Comments [...] 5-34 Chemistry (test code=ALT) 87 U/L 8-55 Ocglstrhr7390-04-49 20:59:00 Test Item Value Reference Range Comments Chemistry (test code=LIP) 32 U/L 8-78 Chemistry - Czfydda3695-62-28 20:59:00 Test Item Value Reference Range Comments Chemistry - Lactate (test code=LACTSEP-T) 2.1 mmol/L 0.5-2.2 Gaowuwsmpm9153-60-20 20:43:00 Test Item Value Reference Range Comments [...] (test code=UABLD) Negative Negative Urine Source: Urine HngajcTmayybkzcq2339-45-85 20:37:00 Test Item Value Reference Range Comments [...]
--- OUTSIDE RECORDS SUMMARY | 2019-06-21 16:01 | XMS REPORT ---
[...] End Date Status Dosage System Date Losartan [facility] 81529408635 100 MG Orally Active 1 tablet Potassium Once a day Results No Known Results Summary Purpose eClinicalWorks Submission
--- OUTSIDE RECORDS SUMMARY | 2019-06-21 16:01 | XMS REPORT ---
[...] End Status Dosage System Date Date Lexapro [facility] 67038760669 20 MG Orally Active 1 tablet Once a day Seroquel XR [facility] 97620191207 300 MG Orally Active 1 tablet Once a day in the evening Phenergan [facility] [address]-27 25mg Po Q 12 Active one tablet hours Doxycycline ND 30182385290 100 MG Orally Active 1 capsule Hyclate twice a day Azithromycin ND 05126284894 250 MG Orally Active 2 tablets Once a day on the first day, then 1 tablet daily for 4 days Losartan ND 01659029326 100 MG Orally Active 1 tablet Potassium Once a day Robaxin-750 [facility] 37044752946 750 MG Orally Active 1 tablet every 4 hrs Flonase [facility] 79852489554 50 MCG/ACT Active 2 spray in Nasally Once a each day nostril Diazepam ND 29867643593 5 MG Orally Active 1 tablet Once a day prn as needed panic attacks Cheratussin AC [facility] 10149185974 100-10 MG/5ML Mar 02, Mar 12, Active 5 ml Orally every 2018 2019 hours prn cough PredniSONE [facility] 40024508955 10 MG Orally Active 2 tablet Once a day daily x 5 days then one tablet daily x 5 days Gabapentin [facility] 20820539719 300 MG Orally Active 1 capsule Once a day Results No Known Results Summary Purpose eClinicalWorks Submission
--- OUTSIDE RECORDS SUMMARY | 2019-06-21 16:02 | XMS REPORT | Summary of Care ---
:1960 Author Organization [facility] - [facility] Address [address] [place] [id number] Care Team Providers Name Role Phone Jeannie Slade Primary Care Provider Reason for Referral MRI/CAT Scan (Routine) Status Reason Specialty Diagnoses / Referred By Referred To Procedures Contact Contact New Request Diagnostic Diagnoses Epigastric pain Gary Chavarria, Radiology Procedures CT ABDOMEN PELVIS W CONTRAST DO [address] [place] [address]. [address] [place] [address] Reason for Visit Reason Comments Abdominal Pain Auth/Cert Status Reason Specialty Diagnoses / Referred By Referred To Procedures Contact Contact Emergency Medicine Diagnoses ABDOMINAL PAIN [facility] [address] [place] [address] [place] [address] Encounter Details Date Type Department Care Team Description 05/19/2019 Emergency [facility] Gary Chavarria DO Epigastric pain (Primary Dx); Department [address] [place] [address]. Nausea and vomiting, intractability of vomiting not specified, unspecified vomiting type [address] [place] [address] [address] [place] [address] [place] [address] [phone] Allergies Active Allergy Reactions Severity Noted Date Comments Codeine Itching, Rash High 02/11/2013 documented as of this encounter (statuses as of 05/19/2019) Medications Medication Sig Dispensed Refills Start Date End Date Status LOSARTAN POTASSIUM Take 100 mg by 0 Active (LOSARTAN ORAL) mouth daily. gabapentin (NEURONTIN) Take 300 mg by 0 Active 300 mg capsule mouth 3 (three) times daily. QUEtiapine (SEROQUEL) Take 300 mg by 0 Active 100 mg tablet mouth at bedtime. escitalopram oxalate Take 20 mg by 0 Active (LEXAPRO) 5 mg tablet mouth daily. divalproex (DEPAKOTE) Take 500 mg by 0 Active 125 mg EC tablet mouth 2 (two) times daily. tiZANidine 4 mg capsule Take 4 mg by 0 Active mouth 2 (two) times daily. CREON 36,000-114,000- Take by mouth 3 0 10/23/2018 Active 180,000 unit CpDR (three) times daily with meals. pantoprazole 40 mg EC Take 1 tablet by 60 tablet 0 11/17/2018 Active tabletIndications: mouth 2 (two) Gastroesophageal reflux times daily. disease, esophagitis presence not specified proMETHazine 25 mg Take 1 tablet by 28 tablet 0 11/17/2018 Active tabletIndications: mouth every 6 Acute on chronic (six) hours as pancreatitis needed for N/V alternating with Ondansetron. HYDROcodone-acetaminoph Take 1 tablet by 20 tablet 0 11/17/2018 Active en 7.5-325 mg per mouth every 6 tabletIndications: (six) hours as Acute on chronic needed (Pain scal pancreatitis 7-10). traMADol 50 mg 1 by mouth every 40 tablet 0 12/05/2018 Active tabletIndications: 4-6 hours as Closed fracture of needed for pain right ankle, initial encounter chlordiazePOXIDE 10 mg Take 10 mg by 0 Active capsule mouth 3 (three) times daily. meloxicam 7.5 mg tablet Take 7.5 mg by 0 Active mouth daily. losartan 100 mg Take 1 tablet by 30 tablet 0 01/05/2019 Active tabletIndications: mouth daily. Essential hypertension ondansetron 4 mg Take 1 tablet by 20 tablet 0 02/07/2019 Active tabletIndications: mouth every 8 Closed fracture of (eight) hours as distal end of right needed for Nausea tibia with routine and Vomiting healing, unspecified (N/V). fracture morphology, subsequent encounter traMADol 100 mg 24 hr Take 1 tablet by 15 tablet 0 05/19/2019 Active tabletIndications: mouth daily. Epigastric pain ondansetron 4 mg Take 1 tablet by 20 tablet 0 05/19/2019 Active disintegrating mouth every 8 tabletIndications: (eight) hours as Epigastric pain needed for Nausea and Vomiting (N/V). documented as of this encounter (statuses as of 05/19/2019) Active Problems Problem Noted Date Abdominal pain 11/15/2018 Obesity (BMI 30-39.9) 03/01/2016 documented as of this encounter (statuses as of 05/19/2019) Social History Tobacco Use Types Packs/Day Years Used Date Never Smoker Smokeless Tobacco: Never Used Alcohol Use Drinks/Week oz/Week Comments Never Alcohol Habits Answer Date Recorded How often do you have a drink containing alcohol? Never 11/15/2018 How many drinks containing alcohol do you have on a typical Not asked day when you are drinking? How often do you have six or more drinks on one occasion? Not asked Financial Resource Strain Answer Date Recorded How hard is it for you to pay for the very basics like Somewhat hard 2018 food, housing, medical care, and heating? Food Insecurity Answer Date Recorded Within the past 12 months, you worried that your food would Never true 2018 run out before you got money to buy more. Within the past 12 months, the food you bought just didn't Never true 2018 last and you didn't have money to get more. Transportation Needs Answer Date Recorded In the past 12 months, has lack of transportation kept you from No 11/15/2018 medical appointments or from getting medications? In the past 12 months, has lack of transportation kept you from No 11/15/2018 meetings, work, or getting things needed for daily living? Sex Assigned at Date Recorded Not on file Job Start Date Occupation Industry Not on file Not on file Not on file Travel History Travel Start Travel End No recent travel history available. documented as of this encounter Last Filed Vital Signs Vital Sign Reading Time Taken Comments Blood Pressure 141/97 05/19/2019 8:59 PM WINDOWS INFRASTRUCTURE ENGINEER Pulse 86 05/19/2019 8:59 PM WINDOWS INFRASTRUCTURE ENGINEER Temperature 36.6 C (97.9 F) 05/19/2019 6:45 PM WINDOWS INFRASTRUCTURE ENGINEER Respiratory Rate 16 05/19/2019 8:59 PM WINDOWS INFRASTRUCTURE ENGINEER Oxygen Saturation 94% 05/19/2019 8:59 PM WINDOWS INFRASTRUCTURE ENGINEER Inhaled Oxygen Concentration - - Weight 81.6 kg (180 lb) 05/19/2019 6:16 PM WINDOWS INFRASTRUCTURE ENGINEER Height - - Body Mass Index 35.15 02/23/2019 6:32 PM WINDOWS INFRASTRUCTURE ENGINEER documented in this encounter Discharge Instructions Gary Mccabe DO - 05/19/2019 DIAGNOSIS Diagnoses that have been ruled out: None Diagnoses that are still under consideration: None Final diagnoses: Epigastric pain NO LIFE-THREATENING FINDINGS ON TODAY'S EXAM. PROCEDURES IN THE ER TODAY: Orders Placed This Encounter Procedures CT ABDOMEN PELVIS W CONTRAST Complete Metabolic Panel CBC with Differential Lipase, Serum Urinalysis CBC WITH DIFFERENTIAL MEDICATIONS ADMINISTERED IN THE ER TODAY AND DISCHARGE MEDICATIONS: Orders Placed This Encounter Medications morpHINE injection 4 mg ondansetron (ZOFRAN (PF)) injection 4 mg iohexol (OMNIPAQUE 350 BULK-150 mL) injection 120 mL traMADol 100 mg 24 hr tablet ondansetron 4 mg disintegrating tablet FOLLOW-UP RECOMMENDATIONS: RECOMMEND FOLLOW-UP WITH A PRIMARY CARE PROVIDER OR SPECIALIST IN 2-5 DAYS, ESPECIALLY IF NO IMPROVEMENT IN SYMPTOMS. MAY FOLLOW-UP WITH A PROVIDER OF YOUR CHOICE, SUCH : 1. A PHYSICIAN OF YOUR CHOICE 2. [facility], . LOCATIONS IN [facility] 3. [facility], [address] [place] [address]; OR, IF YOU WISH TO FOLLOW-UP WITHIN THE [facility], MAY TRY THESE OPTIONS (CLINIC APPOINTMENTS AVAILABLE ON [id number] BASIS): 1. SCHEDULE AN APPOINTMENT ONLINE AT WWW[facility] 2. OR CALL THE [facility] ACCESS CENTER AT OR 3. OR CALL YOUR [facility] PHYSICIAN'S OFFICE DIRECTLY IF YOU ARE ALREADY AN ESTABLISHED [facility] PATIENT. RETURN TO ER FOR WORSENING OF SYMPTOMS. documented in this encounter Plan of Treatment Health Maintenance Due Date Last Done Comments DTaP,Tdap,and Td Vaccines (1 - 1973 Tdap) PAP SMEAR 11/02/1983 Breast Cancer Screening 2002 (MAMMOGRAM) COLONOSCOPY 2012 Zoster Recombinant Vaccine 2012 (SHINGRIX) (1 of 2) INFLUENZA VACCINE (#1) 2018 HEPATITIS C (HCV) SCREEN Completed 11/15/2018 PNEUMOCOCCAL 0-64 YEARS COMBINED Aged Out No longer eligible based on SERIES patient's age to complete this topic documented as of this encounter Procedures Procedure Name Priority Date/Time Associated Comments Diagnosis CT ABDOMEN PELVIS W Routine 05/19/2019 8:03 Epigastric pain Results for this CONTRAST PM WINDOWS INFRASTRUCTURE ENGINEER procedure are in the results section. CBC WITH DIFFERENTIAL STAT 05/19/2019 7:07 Epigastric pain Results for this PM WINDOWS INFRASTRUCTURE ENGINEER procedure are in the results section. URINALYSIS STAT 05/19/2019 7:07 Epigastric pain Results for this PM WINDOWS INFRASTRUCTURE ENGINEER procedure are in the results section. CBC WITH DIFFERENTIAL Routine 05/19/2019 7:07 Epigastric pain Results for this PM WINDOWS INFRASTRUCTURE ENGINEER procedure are in the results section. COMP. METABOLIC PANEL STAT 05/19/2019 7:07 Epigastric pain Results for this (25849) PM WINDOWS INFRASTRUCTURE ENGINEER procedure are in the results section. LIPASE STAT 05/19/2019 7:07 Epigastric pain Results for this PM WINDOWS INFRASTRUCTURE ENGINEER procedure are in the results section. NOTICE OF PRIVACY Routine 05/19/2019 6:08 PRACTICES PM WINDOWS INFRASTRUCTURE ENGINEER CONSENT/REFUSAL FOR Routine 05/19/2019 6:08 DIAGNOSIS AND PM WINDOWS INFRASTRUCTURE ENGINEER TREATMENT documented in this encounter Results CT ABDOMEN PELVIS W CONTRAST (05/19/2019 8:03 PM WINDOWS INFRASTRUCTURE ENGINEER) Specimen Impressions Performed At PACS/VR/DOSE No acute intra-abdominal abnormality. Hepatosplenomegaly with diffuse fatty infiltration of the liver. Preliminary Report Dictated by Resident: Helena Irby I, Apolinar Montes MD., have reviewed this study and agree with the above report. Narrative Performed At EXAM: CT ABDOMEN PELVIS W CONTRAST PACS/VR/DOSE HISTORY: Abd pain, acute, generalized COMPARISON: CT abdomen and pelvis with contrast 02/23/2019, 11/15/2018 DOSE: [id number] mGy-cm TECHNIQUE AND FINDINGS: Contiguous axial imaging from the level of the lung bases through the pubic symphysis was performed after the uncomplicated administration of 120 mL of intravenous Omnipaque contrast material. Coronal and sagittal reconstructions were obtained. Auto mA and/or iterative reconstruction were used to reduce radiation dose. FINDINGS: LOWER THORAX: The lungs bases are clear. No cardiomegaly. LIVER: The liver is enlarged with diffuse fatty infiltration of the liver. No focal hepatic lesions. Normal contour. GALLBLADDER AND BILIARY TREE: Prior cholecystectomy. Pneumobilia that extends to the left hepatic duct is similar to prior. SPLEEN: The spleen measures 13.4 cm, mild splenomegaly. PANCREAS: No ductal dilation or masses. ADRENAL GLANDS: No adrenal nodules. KIDNEYS: No hydronephrosis, stones, or masses. PERITONEUM AND RETROPERITONEUM: No free air or fluid. LYMPH NODES: No lymphadenopathy. GI TRACT: No dilation or wall thickening. Prior appendectomy. PELVIS/BLADDER: The uterus and ovaries are unremarkable. The bladder is partially decompressed. VESSELS: Unremarkable. BONES AND SOFT TISSUES: No suspicious lytic or sclerotic bony lesions. Mild L4/L5 spondylosis and left L5/S1 facet arthrosis. Procedure Note [facility], Radiant Results Inft User - 05/19/2019 9:38 PM WINDOWS INFRASTRUCTURE ENGINEER EXAM: CT ABDOMEN PELVIS W CONTRAST HISTORY: Abd pain, acute, generalized COMPARISON: CT abdomen and pelvis with contrast 02/23/2019, 11/15/2018 DOSE: [id number] mGy-cm TECHNIQUE AND FINDINGS: Contiguous axial imaging from the level of the lung bases through the pubic symphysis was performed after the uncomplicated administration of 120 mL of intravenous Omnipaque contrast material. Coronal and sagittal reconstructions were obtained. Auto mA and/or iterative reconstruction were used to reduce radiation dose. FINDINGS: LOWER THORAX: The lungs bases are clear. No cardiomegaly. LIVER: The liver is enlarged with diffuse fatty infiltration of the liver. No focal hepatic lesions. Normal contour. GALLBLADDER AND BILIARY TREE: Prior cholecystectomy. Pneumobilia that extends to the left hepatic duct is similar to prior. SPLEEN: The spleen measures 13.4 cm, mild splenomegaly. PANCREAS: No ductal dilation or masses. ADRENAL GLANDS: No adrenal nodules. KIDNEYS: No hydronephrosis, stones, or masses. PERITONEUM AND RETROPERITONEUM: No free air or fluid. LYMPH NODES: No lymphadenopathy. GI TRACT: No dilation or wall thickening. Prior appendectomy. PELVIS/BLADDER: The uterus and ovaries are unremarkable. The bladder is partially decompressed. VESSELS: Unremarkable. BONES AND SOFT TISSUES: No suspicious lytic or sclerotic bony lesions. Mild L4/L5 spondylosis and left L5/S1 facet arthrosis. IMPRESSION No acute intra-abdominal abnormality. Hepatosplenomegaly with diffuse fatty infiltration of the liver. Preliminary Report Dictated by Resident: Helena Irby I, Apolinar Montes MD., have reviewed this study and agree with the above report. Performing Organization Address City/State/Zipcode Phone Number PACS/VR/DOSE CBC WITH DIFFERENTIAL (05/19/2019 7:07 PM WINDOWS INFRASTRUCTURE ENGINEER) WBC 6.65 4.30 - 11.10 [facility] 10*3/L H[facility]ITAL [facility] RBC 3.71 (L) 3.93 - 5.25 [facility] 10*6/L [facility]ITAL [facility] HGB 10.9 (L) 11.6 - 15.0 [facility] g/dL [facility] HCT 34.8 (L) 35.7 - 45.2 % [facility] MCV 93.8 80.6 - 95.5 fL [facility] MCH 29.4 25.9 - 32.8 pg [facility] MCHC 31.3 (L) 31.6 - 35.1 [facility] g/dL [facility] RDW-SD 49.0 39.0 - 49.9 fL [facility] RDW-CV 14.3 12.0 - 15.5 % [facility] PLT 176 166 - 358 [facility] 10*3/L [facility]ITAL [facility] MPV 10.2 9.5 - 12.9 fL [facility] NRBC/100 WBC 0.0 0.0 - 10.0 /100 [facility] WBCs [facility] NRBC x10^3 <0.01 10*3/L [facility] GRAN MAT (NEUT) % 65.5 % [facility] IMM GRAN % 0.50 % [facility] LYMPH % 24.7 % [facility] MONO % 8.6 % [facility] EOS % 0.5 % [facility] BASO % 0.2 % [facility] GRAN MAT x10^3(ANC) 4.37 1.88 - 7.09 [facility] 10*3/uL HOSPITAL [facility] IMM GRAN x10^3 0.03 0.00 - 0.06 [facility] 10*3/uL [facility] LYMPH x10^3 1.64 1.32 - 3.29 [facility] 10*3/uL [facility] MONO x10^3 0.57 0.33 - 0.92 [facility] 10*3/uL [facility]ITAL [facility] EOS x10^3 0.03 0.03 - 0.39 [facility] 10*3/uL [facility] BASO x10^3 <0.03 0.01 - 0.07 [facility] 10*3/uL [facility] Specimen Blood - VENOUS Performing Organization Address [facility] Phone Number [facility] CLIA: [id number], [address] [place] [address] Urinalysis (05/19/2019 7:07 PM WINDOWS INFRASTRUCTURE ENGINEER) APPEARANCE Clear Clear [facility] COLOR Romelia (A) Yellow [facility] PH 5.0 4.8 - 8.0 [facility] SP GRAVITY 1.024 1.003 - 1.030 [facility] GLU U QUAL Normal Normal [facility] BLOOD Negative Negative [facility] KETONES Negative Negative [facility] PROTEIN Negative Negative [facility] UROBILIN 2.0 mg/dL (A) Normal [facility] BILIRUBIN Negative Negative [facility] NITRITE Negative Negative [facility] LEUK NICHOLE Negative Negative [facility] RBC/HPF 4 (H) 0 - 3 HPF [facility] WBC/HPF 2 0 - 5 HPF [facility] BACTERIA Few (A) Negative [facility] MUCOUS Slight (A) Negative LPF [facility] SQ EPITH 4 HPF [facility] Specimen Urine - URINE, CLEAN CATCH Performing Organization Address [facility] [place] Phone Number [facility] CLIA: [id number], [address] [place], [place] [id number] [address] Lipase, Serum (05/19/2019 7:07 PM WINDOWS INFRASTRUCTURE ENGINEER) LIPASE 65 0 - 220 U/L [facility] Specimen Blood - VENOUS Performing Organization Address City/[facility] Phone Number [facility] CLIA: [id number], [address] [place] [id number] Complete Metabolic Panel (05/19/2019 7:07 PM WINDOWS INFRASTRUCTURE ENGINEER) NA 141 135 - 145 [facility] mmol/L [facility] K 4.0 3.5 - 5.0 [facility] mmol/L [facility] CL 105 98 - 108 mmol/L [facility] CO2 TOTAL 24 23 - 31 mmol/L [facility] AGAP 12 2 - 16 [facility] BUN 23 7 - 23 mg/dL [facility] GLUCOSE 110 70 - 110 mg/dL [facility] CREATININE 0.68 0.50 - 1.04 [facility] mg/dL [facility] TOTAL BILI 1.0 0.1 - 1.1 mg/dL [facility] CALCIUM 9.4 8.6 - 10.6 [facility] mg/dL [facility] T PROTEIN 8.1 6.3 - 8.2 g/dL [facility] ALBUMIN 4.7 3.5 - 5.0 g/dL [facility] ALK PHOS 575 (H) 34 - 122 U/L [facility] ALTv 112 (H) 5 - 35 U/L [facility] AST(SGOT) 112 (H) 13 - 40 U/L [facility] eGFR Calculation 89.5 mL/min/1.73m2 [facility] ([facility] LABORATORY [place]) eGFR Calculation 108.5 mL/min/1.73m2 [facility] () [facility] Specimen Blood - VENOUS Narrative Performed At Association of Glomerular Filtration Rate (GFR) [facility] and Staging of Kidney Disease* + + +- + | GFR (mL/min/1.73 m2) | With Kidney Damage | Without Kidney Damage + + +- + | >90 | Stage one | Normal + + +- + | 60-89 | Stage two | Decreased GFR + + +- + | 30-59 | Stage three | Stage three + + +- + | 15-29 | Stage four | Stage four + + +- + | <15 (or dialysis) | Stage five | Stage five + + +- + *Each stage assumes the associated GFR level has been in effect for at least three months. Stages 1 to 5, with or without kidney disease, indicate chronic kidney disease. Notes: Determination of stages one and two (with eGFR >59mL/min/1.73 m2) requires estimation of kidney damage for at least three months as defined by structural or functional abnormalities of the kidney, manifested by either: Pathological abnormalities or Markers of kidney damage (including abnormalities in the composition of the blood or urine or abnormalities in imaging tests). Performing Organization Address City/State/Zipcode Phone Number [facility] CLIA: [id number], [address] [place] [address] documented in this encounter Visit Diagnoses Diagnosis Epigastric pain - Primary Abdominal pain, epigastric Nausea and vomiting, intractability of vomiting not specified, unspecified vomiting type documented in this encounter Administered Medications Medication Order MAR Action Action Date Dose Rate Site iohexol (OMNIPAQUE 350 BULK-150 Given 05/19/2019 8:15 PM WINDOWS INFRASTRUCTURE ENGINEER 120 mL mL) injection 120 mL 120 mL, Intravenous, ONCE, 1 dose, 05/19/19 at 2014, Routine morpHINE injection 4 mg Given 05/19/2019 7:25 PM WINDOWS INFRASTRUCTURE ENGINEER 4 mg 4 mg, Slow IV Push, ONCE, 1 dose, 05/19/19 at 2014, STAT morpHINE injection 4 mg Given 05/19/2019 9:09 PM WINDOWS INFRASTRUCTURE ENGINEER 4 mg 4 mg, Slow IV Push, ONCE, 1 dose, 05/19/19 at 2215, STAT ondansetron (ZOFRAN (PF)) injection 4 mg Given 05/19/2019 7:25 PM WINDOWS INFRASTRUCTURE ENGINEER 4 mg 4 mg, Slow IV Push, ONCE, 1 dose, 05/19/19 at 2014, Routine documented in this encounter Insurance Payer Benefit Plan / Subscriber ID Effective Phone Address Type Group Dates MEDICARE MEDICARE PART xxxxxxxxxxx 2015-Prese [phone] [place] [id number] [place] [id number] CIGNA CIGNA II [id number] 2018-Prese HMO/PPO/POS nt documented as of this encounter Advance Directives Name Relationship Healthcare Agent Communication Relationship Puneet Aleman Spouse Primary healthcare agent "
--- OUTSIDE RECORDS SUMMARY | 2019-06-21 16:02 | XMS REPORT | Summary of Care ---
:1960 Author Organization [facility] - Health Address [address] [place] [address] Care Team Providers Name Role Phone Jeannie Slade Primary Care Provider Encounter Details Date Type Department Care Team Description 06/19/2019 Orders Only [facility] Doctor Unassigned, No [phone] [facility] Name [place] [id number] Allergies Active Allergy Reactions Severity Noted Date Comments Codeine Itching, Rash High 02/11/2013 documented as of this encounter (statuses as of 06/19/2019) Medications Medication Sig Dispensed Refills Start Date [...] as of this encounter (statuses as of 06/19/2019) Active Problems Problem Noted Date Abdominal pain 11/15/2018 Obesity (BMI 30-39.9) 03/01/2016 documented as of this encounter (statuses as of 06/19/2019) Social History Tobacco Use Types Packs/Day Years [...] of this encounter Last Filed Vital Signs Not on filedocumented in this encounter Plan of Treatment Health [...] encounter Procedures Procedure Name Priority Date/Time Associated Diagnosis Comments CONSENT/REFUSAL FOR Routine 06/19/2019 1:35 PM ICER MACHINE OPERATOR DIAGNOSIS AND TREATMENT documented in this encounter Results Not on filedocumented in this encounter Insurance Payer Benefit Plan / Subscriber ID Effective Phone Address Type Group Dates CIGNA CIGNA II [id number] 2018-Prese HMO/PPO/POS nt MEDICARE MEDICARE PART xxxxxxxxxxx 2015-Prese [phone] Medicare A & B [place] [address] [id number] [place] [id number] documented as of this encounter Advance Directives Name Relationship Healthcare Agent Communication Relationship Puneet Aleman Spouse Primary healthcare agent [email or web address]
--- OUTSIDE RECORDS SUMMARY | 2019-06-21 16:03 | XMS REPORT | Summary of Care ---
:1960 Author Organization [facility] Address [address] [place] [id number] Care Team Providers Name Role Phone Jeannie Slade Primary Care Provider Reason for Visit Reason Comments Abdominal Pain Auth/Cert Status Reason Specialty Diagnoses / Referred By Referred To Procedures Contact Contact [facility] [address] [place] [address] [place] [address] Encounter Details Date Type Department Care Team Description 06/19/2019 Emergency [facility] Skyler Fisher, Non-intractable vomiting with nausea, unspecified vomiting type (Primary Dx); Department Abdominal pain, unspecified abdominal location; [address] [place] [address] [address] [facility] Upper abdominal pain; [place] [address] [id number] Chronic gastritis without bleeding, unspecified gastritis type [phone] [place] [address] Allergies Active Allergy Reactions Severity Noted Date [...] 2 (two) times daily. tiZANidine 4 mg Take 4 mg by 0 Active capsule mouth 2 (two) times daily. CREON 36,000-114,000- Take by mouth 3 0 10/23/2018 Active 180,000 unit CpDR (three) times daily with meals. pantoprazole 40 mg EC Take 1 tablet by 60 tablet 0 11/17/2018 Active tabletIndications: mouth 2 (two) Gastroesophageal times daily. reflux disease, esophagitis presence not specified proMETHazine 25 mg Take 1 tablet by 28 tablet 0 11/17/2018 Active tabletIndications: mouth every 6 Acute on chronic (six) hours as pancreatitis needed for N/V alternating with Ondansetron. HYDROcodone-acetaminop Take 1 tablet by 20 tablet 0 11/17/2018 Active hen 7.5-325 mg per mouth every 6 tabletIndications: (six) hours as Acute on chronic needed (Pain scal pancreatitis 7-10). traMADol 50 mg 1 by mouth every 40 tablet 0 12/05/2018 Active tabletIndications: 4-6 hours as Closed fracture of needed for pain right ankle, initial encounter chlordiazePOXIDE 10 mg Take 10 mg by 0 Active capsule mouth 3 (three) times daily. meloxicam 7.5 mg Take 7.5 mg by 0 Active tablet mouth daily. losartan 100 mg Take 1 [...] pain needed for Nausea and Vomiting (N/V). ondansetron 4 mg Take 2 tablets by 20 tablet 0 06/19/2019 Active disintegrating mouth every 8 tabletIndications: (eight) hours as Non-intractable needed for Nausea vomiting with nausea, and Vomiting unspecified vomiting (N/V). type famotidine (PEPCID) 40 Take 1 tablet by 30 tablet 0 06/19/2019 07/19/2019 Active mg tabletIndications: mouth daily for Non-intractable 30 days. vomiting with nausea, unspecified vomiting type documented as of this encounter (statuses as [...] Sign Reading Time Taken Comments Blood Pressure 157/89 06/19/2019 6:30 PM [employer] Pulse 70 06/19/2019 6:30 PM [employer] Temperature 37.1 C (98.7 F) 06/19/2019 1:45 PM [employer] Respiratory Rate 14 06/19/2019 6:04 PM [employer] Oxygen Saturation 97% 06/19/2019 6:30 PM [employer] Inhaled Oxygen Concentration - - Weight 88.5 kg (195 lb) 06/19/2019 1:46 PM [employer] Height 152.4 cm (5') 06/19/2019 1:46 PM [employer] Body Mass Index 38.08 06/19/2019 1:46 PM [employer] documented in this encounter Discharge Instructions Skyler Aguilar MD - 06/19/2019DIAGNOSIS NAUSEA WITH VOMITING EXACERBATION OF LONG-TERM UPPER ABDOMINAL PAIN WITHOUT CRITICAL EXAM FINDINGS POSSIBLE GASTRITIS NO LIFE-THREATENING FINDINGS ON TODAY'S EXAM. PROCEDURES IN THE ER TODAY: NONE MEDICATIONS ADMINISTERED IN THE ER TODAY: NORMAL SALINE IV FLUID MORPHINE PEPCID PHENERGAN SOLUTION OF MAALOX, DIPHENHYDRAMINE, VISCOUS LIDOCAINE YOUR PRESCRIPTIONS AND [id number] MEDICATION RECOMMENDATIONS: RECOMMEND PEPCID PRESCRIBED UNTIL ALL GONE RECOMMEND ZOFRAN DISSOLVING TABLETS PRESCRIBED FOR NAUSEA RECOMMEND TYLENOL 325MG EVERY 4 HOURS NEEDED FOR PAIN. MAY USE YOUR HYDROCODONE FOR PAIN NOT WELL CONTROLLED BY TYLENOL. DO NOT TAKE HYDROCODONE WITHIN 4 HOURS OF TAKING TYLENOL, AND VICE VERSA, THIS MAY RESULT IN EXCESSIVE TYLENOL DOSING. SPECIAL CARE INSTRUCTIONS: SEE ATTACHMENTS FOLLOW-UP RECOMMENDATIONS: RECOMMEND FOLLOW-UP WITH A PRIMARY CARE PROVIDER IN A WEEK, ESPECIALLY IF NO IMPROVEMENT IN SYMPTOMS. IF YOU WISH TO FOLLOW-UP WITHIN THE [facility], TRY THESE OPTIONS ( CLINIC APPOINTMENTS AVAILABLE ON [id number] BASIS): 1. SCHEDULE AN APPOINTMENT ONLINE AT [email or web address] 2. OR CALL THE [facility] AT OR 3. OR CALL YOUR [facility] PHYSICIAN'S OFFICE DIRECTLY IF YOU ARE ALREADY AN ESTABLISHED [facility] PATIENT. RETURN TO ER FOR WORSENING OF SYMPTOMS. AttachmentsThe following attachments cannot be sent through Care Everywhere.Abdominal Pain, Adult (Nigerien)Gastritis (Adult) (Nigerien)Vomiting ( Adult) (Nigerien)Ondansetron tablets (Nigerien)Famotidine tablets or gelcaps ( Nigerien)documented in this encounter Plan of Treatment Health [...] Procedure Name Priority Date/Time Associated Diagnosis Comments CBC WITH DIFFERENTIAL STAT 06/19/2019 2:30 Abdominal pain, Results for this PM [employer] unspecified procedure are in abdominal location the results section. URINALYSIS STAT 06/19/2019 2:30 Abdominal pain, Results for this PM [employer] unspecified procedure are in abdominal location the results section. CBC WITH DIFFERENTIAL Routine 06/19/2019 2:30 Abdominal pain, Results for this PM [employer] unspecified procedure are in abdominal location the results section. BASIC METABOLIC PANEL STAT 06/19/2019 2:30 Abdominal pain, Results for this (NA, K, CL, CO2, PM [employer] unspecified procedure are in GLUCOSE, BUN, abdominal location the results CREATININE, CA) section. HEPATIC FUNCTION STAT 06/19/2019 2:30 Abdominal pain, Results for this PANEL (51118) PM [employer] unspecified procedure are in (ALB,T.PRO,BILI abdominal location the results T,BU/BC,ALT,AST,ALK section. PHOS) TEST, SERUM STAT 06/19/2019 2:30 Abdominal pain, Results for this PM [employer] unspecified procedure are in abdominal location the results section. LIPASE STAT 06/19/2019 2:30 Abdominal pain, Results for this PM [employer] unspecified procedure are in abdominal location the results section. documented in this encounter Results CBC WITH DIFFERENTIAL (06/19/2019 2:30 PM [employer]) WBC 3.68 (L) 4.30 - 11.10 [facility] 10*3/L [facility] RBC 3.53 (L) 3.93 - 5.25 [facility] 10*6/L [facility] HGB 10.6 (L) 11.6 - 15.0 [facility] g/dL [facility]ITAL [facility] HCT 32.9 (L) 35.7 - 45.2 % [facility] MCV 93.2 80.6 - 95.5 fL [facility] MCH 30.0 25.9 - 32.8 pg [facility] MCHC 32.2 31.6 - 35.1 [facility] g/dL HOSPITAL [facility] RDW-SD 49.4 39.0 - 49.9 fL [facility] RDW-CV 14.6 12.0 - 15.5 % [facility] PLT 200 166 - 358 [facility] 10*3/L [facility] MPV 9.1 (L) 9.5 - 12.9 fL [facility] NRBC/100 WBC 0.0 0.0 - 10.0 /100 [facility] WBCs [facility] NRBC x10^3 <0.01 10*3/L [facility] GRAN MAT (NEUT) % 48.3 % [facility] IMM GRAN % 0.30 % [facility] LYMPH % 38.9 % [facility] MONO % 9.8 % [facility] EOS % 2.4 % [facility] BASO % 0.3 % [facility] GRAN MAT x10^3(ANC) 1.78 (L) 1.88 - 7.09 [facility] 10*3/uL [facility] IMM GRAN x10^3 <0.03 0.00 - 0.06 [facility] 10*3/uL [facility] LYMPH x10^3 1.43 1.32 - 3.29 [facility] 10*3/uL [facility] MONO x10^3 0.36 0.33 - 0.92 [facility] 10*3/uL [facility] EOS x10^3 0.09 0.03 - 0.39 [facility] 10*3/uL [facility] BASO x10^3 <0.03 0.01 - 0.[address]3/uL [facility] Specimen Blood - VENOUS Performing Organization Address City/[facility]/Zipcode Phone Number [facility] CLIA: [id number], [address] [place] [address] [phone] Test, Serum (06/19/2019 2:30 PM [employer]) PREG SERUM Negative [facility] Specimen Blood - VENOUS Narrative Performed At Less than 10 IU/L. If low titer or ectopic [facility] is suspected, resubmit specimen in 48-72 hours. Performing Organization Address City/[facility]/Zipcode Phone Number [facility] CLIA: [id number], [address] [place], [place] [address] [phone] Lipase Serum (06/19/2019 2:30 PM [employer]) LIPASE 89 0 - 220 U/L [facility] Specimen Blood - VENOUS Performing Organization Address [facility] Phone Number [facility] CLIA: [id number], [address] [place], [place] [id number] [phone] Hepatic Function Panel (ALB, T.PRO, BILI T, BU/BC, ALT, AST, ALK PHOS) (2019 2:30 PM [employer]) TOTAL BILI 0.9 0.1 - 1.1 mg/dL [facility] BILI UNCON 0.5 0.1 - 1.1 mg/dL [facility] BILI CONJ 0.0 0.0 - 0.3 mg/dL [facility] T PROTEIN 8.0 6.3 - 8.2 g/dL [facility] ALBUMIN 4.3 3.5 - 5.0 g/dL [facility] ALK PHOS 613 (H) 34 - 122 U/L [facility] ALTv 115 (H) 5 - 35 U/L [facility] AST(SGOT) 157 (H) 13 - 40 U/L [facility] Specimen Blood - VENOUS Performing Organization Address [facility] Phone Number [facility] CLIA: [id number], [address] [place], [place] [address] [phone] Basic Metabolic Panel (NA, K, CL, CO2, GLUCOSE, BUN, CREATININE, CA) (2019 2:30 PM [employer]) NA 141 135 - 145 mmol/L [facility] K 4.5 3.5 - 5.0 mmol/L [facility] CL 107 98 - 108 mmol/L [facility] CO2 TOTAL 25 23 - 31 mmol/L [facility] AGAP 9 2 - 16 [facility] BUN 16 7 - 23 mg/dL [facility] GLUCOSE 89 70 - 110 mg/dL [facility] CREATININE 0.50 0.50 - 1.04 [facility] mg/dL [facility] CALCIUM 9.0 8.6 - 10.6 mg/dL [facility] eGFR Calculation 127.6 mL/min/1.73m2 [facility] (Non-) [facility] eGFR Calculation 154.7 mL/min/1.73m2 [facility] () [facility] Specimen Blood - VENOUS Narrative Performed At Association of Glomerular Filtration Rate (GFR) [facility] and Staging of Kidney Disease* [...] tests). Performing Organization Address City/State/Zipcode Phone Number [facility] CLIA: [id number], [address] [place], [place] [id number] [address] Urinalysis (06/19/2019 2:30 PM [employer]) APPEARANCE Hazy (A) Clear [facility] COLOR Yellow Yellow [facility] PH 7.0 4.8 - 8.0 [facility] SP GRAVITY 1.017 1.003 - 1.030 [facility] GLU U QUAL Normal Normal [facility] BLOOD Negative Negative [facility] KETONES Negative Negative [facility] PROTEIN Negative Negative [facility] UROBILIN 4.0 mg/dL (A) Normal [facility] BILIRUBIN Negative Negative [facility] NITRITE Negative Negative [facility] LEUK NICHOLE Negative Negative [facility] RBC/HPF 3 0 - 3 HPF [facility] WBC/HPF 2 0 - 5 HPF [facility] BACTERIA Many (A) Negative [facility] MUCOUS Slight (A) Negative LPF [facility] SQ EPITH 21 HPF [facility] HYAL CAST 1 <=2 LPF [facility] Specimen Urine - URINE, CLEAN CATCH Performing Organization Address City/State/Zipcode Phone Number [facility] CLIA: [id number], [address] [place] [address] documented in this encounter Visit Diagnoses Diagnosis Non-intractable vomiting with nausea, unspecified vomiting type - Primary Abdominal pain, unspecified abdominal location Upper abdominal pain Abdominal pain, other specified site Chronic gastritis without bleeding, unspecified gastritis type documented in this encounter Administered Medications Medication Order MAR Action Action Date Dose Rate Site famotidine (PEPCID (PF)) injection Given 06/19/2019 3:40 PM [employer] 20 mg 20 mg 20 mg, Slow IV Push, ONCE, 1 dose, 06/19/19 at 1630, [place] maalox:diphenhydrAMINE:lidocaine 2 % viscous Given 06/19/2019 6:10 PM [employer] 15 mL 1:1:1 ([employer]M) oral suspension 15 mL 15 mL, Oral, ONCE, 1 dose, 06/19/19 at 1900, Routine morpHINE injection 4 mg Given 06/19/2019 3:40 PM [employer] 4 mg 4 mg, Slow IV Push, ONCE, 1 dose, 06/19/19 at 1630, STAT morpHINE injection 4 mg Given 06/19/2019 6:10 PM [employer] 4 mg 4 mg, Slow IV Push, ONCE, 1 dose, 06/19/19 at 1900, STAT NaCl 0.9% (NS) bolus infusion New Bag 06/19/2019 3:40 PM [employer] 1,000 mL 999 mL/hr 1,000 mL at 999 mL/hr, 1,000 mL, IV Infusion, ONCE, 1 dose, 06/19/19 at 1530, [place] proMETHazine (PHENERGAN) 12.5 mg in NaCl Given 06/19/2019 3:40 PM [employer] 12.5 mg 0.9% (NS) 50 mL piggyback 12.5 mg, IV Piggyback, ONCE, 1 dose, Sat06/19/19 at 1630, 50 mL documented in this encounter Insurance Payer Benefit Plan / Subscriber ID Effective Phone Address Type Group Dates MEDICARE MEDICARE PART xxxxxxxxxxx 2015-[place] [phone] [place] [id number] [place]DISON [id number] CIGNA CIGNA II [id number] 2018-[place] HMO/PPO/POS nt documented as of this encounter Advance Directives Name Relationship Healthcare Agent Communication Relationship Puneet Aleman Spouse Primary healthcare agent [email or web address]"
[2019-06-21] MEDS ORDERED: MEPERIDINE HCL 50 MG/ML ONE ×2 (17:09→21:16)
[2019-06-21] MEDS ORDERED: PROMETHAZINE INJ 25 MG/ML AMP ONE (17:09)
[2019-06-21] MEDS ORDERED: NA CHLORIDE 0.9% 500 ML ONE (17:09)
--- NOTE | 2019-06-21 17:16 | RAD REPORT ---
EXAM DESCRIPTION: RAD - Chest Single View - 06/21/2019 5:07 pm CLINICAL HISTORY: abd pain Chest pain. COMPARISON: Abdomen Acute Series dated 07/18/2016; Chest Pa And Lat (2 Views) dated 05/04/2016; Chest P a And Lat (2 Views) dated 04/29/2016; Chest Single View dated 02/02/2016 FINDINGS: Portable technique limits examination quality. The lungs are grossly clear. The heart is normal in size. No displaced fractures. IMPRESSION: No acute intrathoracic process suspected.
[2019-06-21 18:09] LABS: Absolute Lymphocytes (CBC) 0.8 K/uL (0.7-4.9); Basophils % 0.4 % (0-1.3); Hematocrit 30.1 % (36.0-45.0); Lymphocytes % 22.4 % (15.3-44.8); MPV 7.3 fL (7.6-11.3); RBC Red Blood Cell Count 3.35 M/uL (3.86-4.86)
[2019-06-21 18:59] LABS: ALT/SGPT 109 U/L (12-78); AST/SGOT 104 U/L (15-37); Alkaline Phosphatase 659 U/L (45-117); BUN Blood Urea Nitrogen 13 mg/dL (7-18); Glucose Level 99 mg/dL (74-106)
[2019-06-21 19:00] LABS: Albumin 2.9 g/dL (3.4-5.0); Lipase 133 U/L (73-393); Protein, Total 7.4 g/dL (6.4-8.2)
[2019-06-21 19:01] LABS: Bilirubin Direct 0.5 mg/dL (0-0.2); Bilirubin Total 0.8 mg/dL (0.2-1.0); Troponin (Emerg Dept Use Only) < 0.02 ng/mL (0.0-0.045)
[2019-06-21 19:02] LABS: Potassium 3.6 mmol/L (3.5-5.1); Sodium Level 141 mmol/L (136-145)
[2019-06-21 19:03] LABS: Bicarbonate 26 mmol/L (21-32)
[2019-06-21] MEDS ORDERED: FENTANYL CITR 100 MCG/2 ML ONE (19:42)
[2019-06-21] MEDS ORDERED: ONDANSETRON 4 MG/2 ML VIAL ONE (19:51)
[2019-06-21 20:32] LABS: Urine Blood NEGATIVE (NEG); Urine Glucose NEGATIVE (NEG); Urine Protein NEGATIVE (NEG); Urine Specific Gravity 1.025 (1.005-1.030)
[2019-06-21] MEDS ORDERED: HYDRALAZINE HCL 20 MG/ML VIAL ONE (21:11)
--- NOTE | 2019-06-21 21:33 | RAD REPORT ---
EXAM DESCRIPTION: CT - Abdomen Pelvis Wo Contrast - 06/21/2019 8:58 pm CLINICAL HISTORY: Abdominal pain. ABD PAIN COMPARISON: Abdomen Pelvis Wo Contrast dated 09/13/2018 TECHNIQUE: CT imaging of the abdomen and pelvis was performed without contrast. Solid organ, bowel a nd vascular assessment is limited due to lack of IV and oral contrast. All CT scans are performed using dose optimization technique as appropriate and may include automated exposure control or mA/KV adjustment according to patient size. FINDINGS: The lower lung lantigua are clear.Cholecystectomy clips. Mild pneumobilia. The liver, spleen, pancreas, adrenal glands and kidneys are within normal limits for a limited non-co ntrast examination. No bowel obstruction, free air, free fluid or abscess. Moderate stool is present in the colon. Append ectomy. The osseous structures are within normal limits. IMPRESSION: No acute intra-abdominal or pelvic findings. A limited non-contrast examination was performed as detailed.
[2019-06-21] MEDS ORDERED: METOCLOPRAMIDE 10 MG/2mL INJ ONE (22:06)
[2019-06-21] MEDS ORDERED: NA CHLORIDE 0.9% 100 ML IV ONE (22:07)
[2019-06-21] MEDS ORDERED: PANTOPRAZOLE 40 MG INJ ONE (22:07)
--- NOTE | 2019-06-21 22:34 | ER ---
Nurse's Notes [facility] Name: Yessenia Aleman Age: 58 yrs Sex: Female : 1960 Arrival Date: 06/21/2019 Time: 15:55 Bed 23 Private MD: Jeannie Slade Diagnosis: Unspecified abdominal pain;Vomiting, unspecified Presentation: 06/20 15:56 Chief complaint: Patient states: Epigastric pain radiating to RUQ and around back, also ph reports N/V, started 3-4 days ago. Coronavirus screen: The patient has NOT traveled to a country currently being monitored by the [facility] within the last 14 days. The patient has NOT had contact with any known and/or suspected case of coronavirus. Ebola Screen: No symptoms or risks identified at this time. Initial Sepsis Screen: Does the patient meet any 2 criteria? No. Patient's initial sepsis screen is negative. Does the patient have a suspected source of infection? No. Patient's initial sepsis screen is negative. Risk Assessment: Do you want to hurt yourself or someone else? Patient reports no desire to harm self or others. 15:56 Method Of Arrival: Ambulatory ph 15:56 Acuity: HOLLI 3 ph Triage Assessment: 16:00 General: Appears in no apparent distress. Behavior is calm, cooperative, appropriate vc for age. Pain: Complains of pain in abdomen. GI: Abdomen is round non-distended, Pt is actively vomiting. Historical: - Allergies: 16:00 Codeine; ph - PMHx: 16:00 Arthritis; Anxiety; biliary chirrosis; CHF; Chronic Pancreatitis; Hypertension; biliary ph disease; Pancreatitis; Pneumonia; - PSHx: 16:00 Cholecystectomy; Appendectomy; Tubal ligation; blie duct stenting x 5; ph - Immunization history:: Adult Immunizations unknown. - Social history:: Smoking status: Patient denies any tobacco usage or history of. Screenin:00 Abuse screen: Denies threats or abuse. Nutritional screening: No deficits noted. vc Tuberculosis screening: No symptoms or risk factors identified. 16:00 Fall Risk None identified. vc Assessment: 16:00 GI: Bowel sounds present X 4 quads. Abd is soft Abdomen is tender to palpation. vc 16:00 General: Appears in no apparent distress. uncomfortable, Behavior is calm, cooperative, vc appropriate for age. Pain: Complains of pain in abdomen. Neuro: Level of Consciousness is awake, alert, obeys commands, Oriented to person, place, time, situation, Appropriate for age. Cardiovascular: Capillary refill < 3 seconds Patient's skin is warm and dry. Respiratory: Airway is patent Respiratory effort is even, unlabored, Respiratory pattern is regular, symmetrical. : No signs and/or symptoms were reported regarding the genitourinary system. Derm: Skin is intact, is healthy with good turgor, Skin temperature is warm. 17:00 Reassessment: Patient and/or family updated on plan of care and expected duration. Pain vc level reassessed. Patient is alert, oriented x 3, equal unlabored respirations, skin warm/dry/pink. 18:00 Reassessment: No changes from previously documented assessment. Patient and/or family vc updated on plan of care and expected duration. Pain level reassessed. 19:00 Reassessment: Patient and/or family updated on plan of care and expected duration. Pain vc level reassessed. Patient is alert, oriented x 3, equal unlabored respirations, skin warm/dry/pink. 20:00 Reassessment: Patient and/or family updated on plan of care and expected duration. Pain vc level reassessed. Patient is alert, oriented x 3, equal unlabored respirations, skin warm/dry/pink. Patient states symptoms have improved. 21:00 Reassessment: Patient and/or family updated on plan of care and expected duration. Pain vc level reassessed. Patient is alert, oriented x 3, equal unlabored respirations, skin warm/dry/pink. Patient states symptoms have not improved. 21:00 Neuro: Level of Consciousness is awake, alert, obeys commands, Oriented to person, vc place, time, situation, Appropriate for age. 22:00 Reassessment: Patient and/or family updated on plan of care and expected duration. Pain vc level reassessed. Patient is alert, oriented x 3, equal unlabored respirations, skin warm/dry/pink. Vital Signs: 15:56 BP 188 / 109; Pulse 91; Resp 18; Temp 98.3; Pulse Ox 97% on R/A; Weight 81.65 kg; ph Height 5 ft. 0 in. (152.40 cm); 17:52 BP 177 / 95; Pulse 93; Resp 15; Temp 98.5(O); Pulse Ox 96% on R/A; mh5 21:00 BP 199 / 112; Pulse 95; Resp 16; Pulse Ox 97% on R/A; vc 22:00 BP 165 / 102; Pulse 92; Resp 15; Temp 98.6(O); Pulse Ox 96% on R/A; vc 23:00 BP 163 / 98; Pulse 95; Resp 16; Pulse Ox 95% on R/A; vc 15:56 Body Mass Index 35.15 (81.65 kg, 152.40 cm) ph ED Course: 15:55 Patient arrived in ED. ag5 15:55 Jeannie Slade MD is Private Physician. ag5 15:59 Triage completed. ph 16:00 Arm band placed on Patient placed in an exam room. ph 16:13 Won Marmolejo FNP-C is PHCP. la1 16:13 Meek Fitzpatrick MD is Attending Physician. la1 16:59 Rosana Denise, RN is Primary Nurse. vc 17:07 Chest Single View In Process Unspecified. EDMS 17:47 Troponin (emerg Dept Use Only) Sent. 5 17:48 Basic Metabolic Panel Sent. 5 17:48 CBC with Diff Sent. mh5 17:48 Creatinine for Radiology Sent. mh5 17:48 Hepatic Function Sent. 5 17:48 Lipase Sent. 5 17:48 Urine --Ancillary (enter results) Sent. mh5 17:48 Urine Dipstick--Ancillary (enter results) Sent. mh5 17:54 Patient has correct armband on for positive identification. Bed in low position. Call [facility] light in reach. hall monitor on. Pulse ox on. NIBP on. 17:54 EKG done, by ED staff, reviewed by Won SAUCEDA. mh5 21:00 Abdomen In Process Unspecified. EDMS 22:04 PHCP role handed off by Won Marmolejo FNP-C snw 22:04 Karla Todd FNP-C is PHCP. snw 22:33 Jeannie Slade MD is Referral Physician. snw 22:47 No provider procedures requiring assistance completed. IV discontinued, intact, vc bleeding controlled, No redness/swelling at site. Pressure dressing applied. Administered Medications: 17:55 Drug: Demerol 50 mg Route: IVP; Site: right hand; vc 19:35 Follow up: Response: No adverse reaction; Pain is decreased vc 17:55 Drug: Phenergan 12.5 mg Route: IVP; Site: right hand; vc 19:34 Follow up: Response: No adverse reaction; Nausea is decreased vc 17:55 Drug: NS 0.9% 500 ml Route: IV; Rate: bolus; Site: right hand; vc 19:56 Drug: fentaNYL (PF) 50 mcg Route: IVP; Site: right hand; vc 22:45 Follow up: Response: No adverse reaction vc 19:56 Drug: Zofran (Ondansetron) 4 mg Route: IVP; Site: right hand; vc 22:45 Follow up: Response: No adverse reaction vc 21:15 Drug: hydrALAZINE 10 mg Route: IV; Rate: calculated rate; Site: right hand; vc 21:30 Follow up: IV Status: Completed infusion; IV Intake: 20ml vc 21:30 Drug: Demerol 50 mg Route: IVP; Site: right hand; vc 22:35 Follow up: Response: No adverse reaction vc 22:00 Drug: ProTONIX 40 mg Route: IVP; Site: right hand; vc 22:45 Follow up: Response: No adverse reaction vc 22:15 Drug: Reglan 10 mg Route: IVP; Site: right hand; vc 22:45 Follow up: Response: No adverse reaction vc 22:44 Drug: Demerol 25 mg Route: IVP; Site: right hand; vc 22:44 Follow up: Response: No adverse reaction; Medication administered at discharge. vc Intake: 21:30 IV: 20ml; Total: 20ml. vc 23:00 IV: 100ml (IV Fluid); Total: 120ml. vc Outcome: 22:33 Discharge ordered by MD. armenta 22:48 Discharged to home via wheelchair, with significant other. vc 22:48 Condition: good 22:48 Discharge instructions given to patient, Instructed on discharge instructions, Demonstrated understanding of instructions, follow-up care. 23:11 Patient left the ED. vc Signatures: Dispatcher [employer] EDMS Karla Todd FNP-C FNP-Csnw Won Marmolejo FNP-C FNP-Cla1 Lucia Weber RN RN Siddharth, Yamileth [facility] Shahriar Hardwick 5 Rosana Denise, RN RN vc Corrections: (The following items were deleted from the chart) 23:32 21:00 Reassessment: Patient and/or family updated on plan of care and expected vc duration. Pain level reassessed. Patient is alert, oriented x 3, equal unlabored respirations, skin warm/dry/pink. vc
--- NOTE | 2019-06-21 22:34 | EDPHYS ---
Physician Documentation [facility] Name: Yessenia Aleman Age: 58 yrs Sex: Female : 1960 Arrival Date: 06/21/2019 Time: 15:55 Bed 23 Private MD: Jeannie Slade ED Physician Meek Fitzpatrick HPI: 06/20 18:33 This 58 yrs old Female presents to ER via Ambulatory with complaints of la1 Abdominal Pain, Nausea. 18:33 The patient presents with abdominal pain in the epigastric area. Onset: The la1 symptoms/episode began/occurred just prior to arrival. Onset: The symptoms/episode began/occurred 3 day(s) ago. The symptoms do not radiate. Associated signs and symptoms: Pertinent positives: nausea and vomiting, Pertinent negatives: fever. The symptoms are described as sharp. Modifying factors: The symptoms are alleviated by nothing, the symptoms are aggravated by food. Severity of pain: At its worst the pain was severe in the emergency department the pain has improved. The patient has experienced similar episodes in the past. pt with chronic pancreatitis, states pain is similar but severe. Historical: - Allergies: 16:00 Codeine; ph - PMHx: 16:00 Arthritis; Anxiety; biliary chirrosis; CHF; Chronic Pancreatitis; Hypertension; biliary ph disease; Pancreatitis; Pneumonia; - PSHx: 16:00 Cholecystectomy; Appendectomy; Tubal ligation; blie duct stenting x 5; ph - Immunization history:: Adult Immunizations unknown. - Social history:: Smoking status: Patient denies any tobacco usage or history of. ROS: 18:34 Constitutional: Negative for fever, chills, and weight loss, Eyes: Negative for injury, la1 pain, redness, and discharge, ENT: Negative for injury, pain, and discharge, Neck: Negative for injury, pain, and swelling, Cardiovascular: Negative for chest pain, palpitations, and edema, Respiratory: Negative for shortness of breath, cough, wheezing, and pleuritic chest pain. 18:34 Back: Negative for injury and pain, : Negative for injury, bleeding, discharge, and swelling, MS/Extremity: Negative for injury and deformity, Neuro: Negative for headache, weakness, numbness, tingling, and seizure. 18:34 Abdomen/GI: Positive for abdominal pain, nausea and vomiting. Exam: 18:34 Constitutional: This is a well developed, well nourished patient who is awake, alert, la1 and in no acute distress. Head/Face: Normocephalic, atraumatic. Eyes: Pupils equal round and reactive to light, extra-ocular motions intact. Lids and lashes normal. Conjunctiva and sclera are non-icteric and not injected. Cornea within normal limits. Periorbital areas with no swelling, redness, or edema. ENT: Mucous membranes moist. Neck: Trachea midline, Chest/axilla: Normal chest wall appearance and motion. Nontender with no deformity. No lesions are appreciated. Cardiovascular: Regular rate and rhythm with a normal S1 and S2. No gallops, murmurs, or rubs. Normal PMI, no JVD. No pulse deficits. Respiratory: Lungs have equal breath sounds bilaterally, clear to auscultation Abdomen/GI: Soft, Moderate epigastric tenderness with normal bowel sounds. No distension No guarding or rebound. Back: No spinal tenderness. No costovertebral tenderness. Full range of motion. Skin: Warm, dry with normal turgor. Normal color with no rashes, no lesions, and no evidence of cellulitis. Vital Signs: 15:56 BP 188 / 109; Pulse 91; Resp 18; Temp 98.3; Pulse Ox 97% on R/A; Weight 81.65 kg; ph Height 5 ft. 0 in. (152.40 cm); 17:52 BP 177 / 95; Pulse 93; Resp 15; Temp 98.5(O); Pulse Ox 96% on R/A; mh5 21:00 BP 199 / 112; Pulse 95; Resp 16; Pulse Ox 97% on R/A; vc 22:00 BP 165 / 102; Pulse 92; Resp 15; Temp 98.6(O); Pulse Ox 96% on R/A; vc 23:00 BP 163 / 98; Pulse 95; Resp 16; Pulse Ox 95% on R/A; vc 15:56 Body Mass Index 35.15 (81.65 kg, 152.40 cm) ph MDM: 16:13 Patient medically screened. la1 21:42 Data reviewed: vital signs, nurses notes, lab test result(s), EKG, radiologic studies, la1 I have discussed the patient's presentation/case with the attending Emergency Department Physician; and as a result, I will admit patient. Test interpretation: by ED physician or midlevel provider: ECG, plain radiologic studies. Counseling: I had a detailed discussion with the patient and/or guardian regarding: the historical points, exam findings, and any diagnostic results supporting the discharge/admit diagnosis, lab results, radiology results, the need for further work-up and treatment in the hospital. Medication response: Phenergan did not change patients condition. The patient is still nauseated, Zofran did not change the patient's condition. The patient is still nauseated. ED course: pt unable to tolerate water by mouth after interventions, will admit for intractable nausea and vomiting.. 06/20 16:24 Order name: Basic Metabolic Panel; Complete Time: 19:22 la1 06/20 16:24 Order name: CBC with Diff; Complete Time: 19:22 la06/20 16:24 Order name: Creatinine for Radiology; Complete Time: 19:22 la 06/20 16:24 Order name: Hepatic Function; Complete Time: 19:22 [facility] 06/20 16:24 Order name: Lipase; Complete Time: 19:22 la 06/20 16:24 Order name: Troponin (emerg Dept Use Only); Complete Time: 19:22 [facility] 06/20 16:50 Order name: Chest Single View; Complete Time: 17:44 [facility] 06/20 17:18 Order name: Urine Dipstick--Ancillary (enter results); Complete Time: 20:38 06/20 17:18 Order name: Urine --Ancillary (enter results); Complete Time: 20:38 eb 06/20 20:55 Order name: Abdomen ; Complete Time: 22:04 [facility] 06/20 16:24 Order name: IV Saline Lock; Complete Time: 17:47 la1 06/20 16:24 Order name: Labs collected and sent; Complete Time: 17:47 la1 06/20 16:24 Order name: Urine Dipstick-Ancillary (obtain specimen); Complete Time: 17:47 la1 06/20 16:24 Order name: Urine Test (obtain specimen); Complete Time: 17:47 la1 06/20 16:24 Order name: EKG; Complete Time: 17:24 la1 06/20 16:24 Order name: EKG - Nurse/Tech; Complete Time: 17:47 la1 Administered Medications: 17:55 Drug: Demerol 50 mg Route: IVP; Site: right hand; vc 19:35 Follow up: Response: No adverse reaction; Pain is decreased vc 17:55 Drug: Phenergan 12.5 mg Route: IVP; Site: right hand; vc 19:34 Follow up: Response: No adverse reaction; Nausea is decreased vc 17:55 Drug: NS 0.9% 500 ml Route: IV; Rate: bolus; Site: right hand; vc 19:56 Drug: fentaNYL (PF) 50 mcg Route: IVP; Site: right hand; vc 22:45 Follow up: Response: No adverse reaction vc 19:56 Drug: Zofran (Ondansetron) 4 mg Route: IVP; Site: right hand; vc 22:45 Follow up: Response: No adverse reaction vc 21:15 Drug: hydrALAZINE 10 mg Route: IV; Rate: calculated rate; Site: right hand; vc 21:30 Follow up: IV Status: Completed infusion; IV Intake: 20ml vc 21:30 Drug: Demerol 50 mg Route: IVP; Site: right hand; vc 22:35 Follow up: Response: No adverse reaction vc 22:00 Drug: ProTONIX 40 mg Route: IVP; Site: right hand; vc 22:45 Follow up: Response: No adverse reaction vc 22:15 Drug: Reglan 10 mg Route: IVP; Site: right hand; vc 22:45 Follow up: Response: No adverse reaction vc 22:44 Drug: Demerol 25 mg Route: IVP; Site: right hand; vc 22:44 Follow up: Response: No adverse reaction; Medication administered at discharge. vc Disposition: 06/21 07:04 Co-signature as Attending Physician, Meek Fitzpatrick MD. rn Disposition: 06/21/19 22:33 Discharged to Home. Impression: Unspecified abdominal pain, Vomiting, unspecified. - Condition is Stable. - Discharge Instructions: Abdominal Pain, Adult, Biliary Colic, Adult, Fat and Cholesterol Restricted Diet, Nausea and Vomiting, Adult, Rehydration, Adult. - Prescriptions for Bentyl 20 mg Oral Tablet - take 1 tablet by ORAL route every 6 hours As needed; 20 tablet. - Medication Reconciliation Form, Thank You Letter, Antibiotic Education, Prescription Opioid Use form. - Follow up: Emergency Department; When: As needed; Reason: Worsening of condition. Follow up: Jeannie Slade MD; When: 2 - 3 days; Reason: Recheck today's complaints, Continuance of care, Re-evaluation by your physician. Signatures: Dispatcher [employer] [facility] Karla Todd, PLANNING FEEDER-C PLANNING FEEDER-Csnw Meek Fitzpatrick MD MD rn Attema, Lee, PLANNING FEEDER-C PLANNING FEEDER-Cla1 Lucia Weber RN RN ph Rosana Denise RN RN vc Corrections: (The following items were deleted from the chart) 06/20 17:34 17:24 Chest Single View+RAD.RAD.BRZ ordered. [facility] 20:55 20:39 Abdomen Pelvis W Con+CT.RAD.BRZ ordered. [facility] 23:11 22:33 06/21/2019 22:33 Discharged to Home. Impression: Unspecified abdominal pain; vc Vomiting, unspecified. Condition is Stable. Forms are Medication Reconciliation Form, Thank You Letter, Antibiotic Education, Prescription Opioid Use. Follow up: Emergency Department; When: As needed; Reason: Worsening of condition. Follow up: Jeannie Slade; When: 2 - 3 days; Reason: Recheck today's complaints, Continuance of care, Re-evaluation by your physician. snw
[2019-06-21] MEDS ORDERED: MEPERIDINE HCL 25 MG/0.5 ML ONE (22:38)
[2019-06-21 23:23] VITALS: BP 177/95; TEMP 98.5; O2SAT 96
--- NOTE | 2019-06-22 07:29 | EKG ---
Test Date: 2019-06-21 Test Time: 16:20:22 Forensic Materials Engineer: CHRISTINA MEASUREMENT RESULTS: Intervals: Rate: 83 WI: 156 QRSD: 78 QT: 362 QTc: 425 [place]: P: 33 WI: 156 QRS: 16 T: 30 INTERPRETIVE STATEMENTS: Normal sinus rhythm Possible Anterior infarct, age undetermined Abnormal ECG Compared to ECG 01/07/2019 15:10:54 No significant changes Electronically Signed On 06-22-19 07:28:49 CDT by Heri Randle
== END 2019-06-21 23:11 | disposition home or self-care (01) ==
LOC: ER 15:53
DX: R11.2 Nausea with vomiting, unspecified (principal); I10 Essential (primary) hypertension; Z88.5 Allergy status to narcotic agent
CPT/HCPCS: 93005; 85025; 80048; 36415; 81025; 80076; 81003; 84484; 83690; 74176; 71045; 96375; 96374; 99284; J0360; J2765; J2550; C9113; J3010; J2175 ×3; J7040; J2405

== ENCOUNTER 2019-08-11 17:26 | Emergency (ER) | payer OTHER ==
--- OUTSIDE RECORDS SUMMARY | 2019-08-11 17:31 | XMS REPORT ---
:1960 [facility] t Address [address] Morales [address] [place] [address] Care Team Providers Name Role Phone DANIEL Mai Unavailable Unavailable Walker, P Unavailable Unavailable PROVIDER, TEMP Unavailable Unavailable LOVELACE Unavailable Unavailable To Unavailable Unavailable PONCE Unavailable Unavailable JONATHAN, M Unavailable Unavailable Problems Condition Condition Condition Status Onset Resolution Last Treatin g Comments Name Details Category Date Date Treatment Clinician Date Anxiety Anxiety Diagnosis Active Gastroesoph Gastroesoph Diagnosis Active ageal ageal reflux reflux disease disease without without esophagitis esophagitis Essential Essential Diagnosis Active hypertensio hypertensio n n Grieving Grieving Problem Active Osteoarthri Osteoarthri Diagnosis Active tis tis involving involving multiple multiple joints on joints on both sides both sides of body of body 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severe severe depression depression Chronic Chronic Diagnosis Active pancreatiti pancreatiti s, s, unspecified unspecified pancreatiti pancreatiti s type s type Primary Primary Diagnosis Active insomnia insomnia Iron Iron Diagnosis Active deficiency deficiency anemia, anemia, unspecified unspecified iron iron deficiency deficiency anemia type anemia type Elevated Elevated Diagnosis Active liver liver enzymes enzymes Anemia, Anemia, Diagnosis Active unspecified unspecified type type Seasonal Seasonal Diagnosis Active allergies allergies Screening Screening Diagnosis Active for for malignant malignant neoplasm of neoplasm of breast breast Allergies, Adverse Reactions, Alerts This patient has no known allergies or adverse reactions. Medications Ordered Filled Start Stop Current Ordering Indication Dosage Frequency Signature Comments Components Medication Medication Date Date Medication? Clinician (SIG) Name Name Losartan Losartan Yes Na Slade 1 tablet Potassium Potassium Lexapro Lexapro Yes Na Slade 1 tablet Seroquel XR Seroquel XR Yes Na Slade 1 tabl et in the evening Phenergan Phenergan Yes Na Slade one tablet Doxycycline Doxycycline Yes Na Slade 1 caps ule Hyclate Hyclate Azithromyci Azithromyci Yes Na Slade 2 tabl ets n n on the first day, then 1 tablet daily for 4 days Robaxin-750 Robaxin-750 Yes Na Slade 1 tabl et Flonase Flonase Yes Na Slade 2 spray in each nostril Diazepam Diazepam Yes Na Slade 1 tablet as needed PredniSONE PredniSONE Yes Na Slade 2 tablet daily x 5 days then one tablet daily x 5 days Gabapentin Gabapentin Yes Na Slade 1 capsul e Losartan Losartan Yes Na Slade TAKE 1 Potassium Potassium TABLET BY MOUTH EVERY DAY Encounters Start End Encounter Admission Attending Care Care Encounter Date/Time Date/Time Type Type Clinicians Facility Department ID 2019-07-14 2019-07-14 [facility] [id number] 15:00:00 15:00:00 [facility] 2019-03-02 2019-03-02 [facility] [id number] 10:40:00 10:40:00 [facility] 2019-02-04 2019-02-04 [facility] [id number] 10:55:00 10:55:00 [facility] 2018-10-07 2018-10-07 [facility] [id number] 11:00:00 11:00:00 [facility] 2018-07-28 2018-07-28 [facility] [id number] 09:57:00 09:57:00 [facility] 2018-07-25 2018-07-25 [facility] [id number] 14:40:00 14:40:00 [facility] Results Test Description Test Time Test Comments Text Results Atomic Results Result Comments Culture, Urine 2017-08-07 15:57:00 Test Item Value Reference Range Comments Culture, Urine (test code = URC) NF Culture, Urine (test code = URC1) 10 NSF * This is an E DITED result. * A prior result that was reported as final has been changed. [id number] 22:53:00 Test Item Value Reference Range Comments Urinalysis (test code LISA Yellow = UACLR) Urinalysis (test code CLOUDY Clear = UACLY) Urinalysis (test code 1.030 1.002-1.036 = SPGR) Urinalysis (test code 5.5 5.0-9.0 = CELSO) Urinalysis (test code Trace Negative = UALEU) Urinalysis (test code Negative Negative = UANIT) Urinalysis (test code Trace mg/dL Neg-Trace = PROUADIP) Urinalysis (test code Negative mg/dL Negative = GLUCU) Urinalysis (test code Negative mg/dL Negative = KETU) Urinalysis (test code 1.0 mg/dL 0.2-1.0 = UAUROB) Urinalysis (test code Small Negative CAU = UABIL) TION Urine Bili padron has a high incidence o f false positiveresults due to urine color interferance.Int erpret results in conju nction with other clinicalfi ndings. Urinalysis (test code Negative Negative = UABLD) Urinalysis (test code 0-3 HPF 0-3 = UARBC) Urinalysis (test code 7-10 HPF 0-3 = UAWBC) Urinalysis (test code 7-10 HPF 0-3 = UASQUAM) Urinalysis (test code Rare-Few HPF None Seen = UABAC) Urinalysis (test code 7-10 HYALINE CAST 0-3 Hyaline = UACAST) [facility] Urine Source: Urine [id number] SURGICAL PATHOLOGY, LEVEL [id number] 14:31:[address] [address] [address] Laboratory Printed: 07/09/[address] [place] [address] DAEMPathology Page: 1 Patient: ZEKE ROMERO Birthdate: 1960 Age/Sex: 56/F Spec#: [id number]: HERMES SALAZAR Specimen Date: 07/08/17 [...] ofepithelioid histiocytes, plasma cells, and few neutrophils. Pathologist:Kelvin Conway Entered by:07/09/17 - 1429 PROCEDURES: 12784,12218/4 Patient: ZEKE ROMERO Re07/03/17Loc: T4-A MR#: [id number] CONTINUED ON NEXT PAGE Dis: 07/09/17ta: DIS IN - [address] [address] Laboratory Printed: 07/09/[address] [place] [address] [facility] Page: 2 Patient: ZEKE ROMERO [id number] (Continued) GROSS DESCRIPTION A. LIVER BIOPSY LEFT [...] by: DANII SHAHID Entered by:07/08/17 - 1316 [facility].KWAME MICROSCOPIC DESCRIPTION A microscopic examination was performed to arrive at the diagnostic conclusion reported. Signed ___ ____(Electronically Signed) Kelvin 07/09/17 Patient: ZEKE ROMERO Re07/03/17Loc: T4-A MR#: [id number] END OF REPORT Dis: 07/09/17ta: DIS [id number] 05:13:00 Test Item Value Reference Range Comments Chemistry (test code = NA-T) 138 mmol/L 136-145 Chemistry (test code = K-T) 3.7 mmol/L 3.5-5.1 Chemistry (test code = CL) 104 mmol/L 98-107 Chemistry (test code = CO2) 28 mmol/L 22-29 Chemistry (test code = ANGP) 10 mmol/L 10-20 Chemistry (test code = BUN) 5 mg/dL 9.8-20.1 Chemistry (test code = 0.73 mg/dL 0.6-1.1 CREATT) Chemistry (test code = 83 Reference Range for Estimated EGFRMDRD) GFR: Greater than 90 mL/min/1 .73 m2NOTE:The MDRD equation mcallister s not been validated for us e with theelderly (over 70 years of age), w omen, patientswith ser ious comorbid condition or per sons with extremes ofbody size, muscle mass, or nutriti onal status. Chemistry (test code = 101 mg/dL 70-105 GLU-T) Chemistry (test code = CA) 8.9 mg/dL 7.8-10.44 Chemistry (test code = 0.7 mg/dL 0.2-1.2 TBILI) Chemistry (test code = TP) 6.6 g/dL 6.0-8.3 Chemistry (test code = ALB) 3.7 g/dL 3.5-5.0 Chemistry (test code = GLOB) 2.9 g/dL 2.4-3.5 Chemistry (test code = AG) 1.3 g/dL 1.2-2.2 Chemistry (test code = ALP) 626 U/L 40-150 Chemistry (test code = AST) 49 U/L 5-34 Chemistry (test code = ALT) 75 U/L 8-55 Reference Lab [id number] 04:14:00 Test Item Value Reference Range Comments Reference Lab Testing 10 U/mL 0-35 Laurent ECLI A methodologyPerformed at: (test code = CA199) [facility] [id number] [place], [place] [id number] Director: Chico wells MD, Phone: [phone] Reference Lab [id number] 16:14:00 Test Item Value Reference Range Comments Reference Lab Testing (test 128.5 Units 0.0-20.0 code = MARLON) Negative 0. 0 - 20.0 Equivocal 20.1 - 24.9 Positive >24.9Mitochondri al (M2) Antibodies are f ound in 90-96% ofpatient s with primary biliary cirrhosis.Perfor med at: [facility] [address] [place], [place] [id number] Dir angela: Chester parker MD, Phone: [phone] Reference Lab [id number] 16:14:00 Test Item Value Reference Range Comments Reference Lab Testing <9.0 U/mL 0.0-9.0 (test code = PANCAMY) Reference Lab Testing Less than 3.5 0.0-3.5 (test code = PANCAPR) U/mL Reference Lab Testing <1:20 titer Neg:<1:20 (test code = ANCAT) Reference Lab Testing <1:20 titer Neg:<1:20 The presen ce of positive (test code = ANCAP) fluorescence exhibiting P-ANCA orC-ANCA pattern s alone is not specific for the diagnosis ofWegener's Gran ulomatosis (WG) or microscopic polyangiitis.Dec isions about treatment should not be based solely onANCA IF A results. The International AN CA Group Consensusrecomme nds follow up testing of posit kourtney sera with both NE-3 and MP O-ANCA enzyme immunoassays. As many as 5% serumsamples are positive only by EIA. Ref. AM J Clin Olcciy0220;111:5 07-513. Reference Lab Testing <1:20 titer Neg:<1:20 The atypic al pANCA pattern has (test code = ATANCA) been observ ed in asignificant percentage of pa tients with ulcerative colit is,primary sclerosing chola ngitis and autoimmune hepat itis.Performed at: [address] [id number] Director: Gill Rider MD, Phone: [phone] [id number] 05:12:00 Test Item Value Reference Range Comments Chemistry (test code = 138 mmol/L 136-145 NA-T) Chemistry (test code = 3.6 mmol/L 3.5-5.1 K-T) Chemistry (test code = 106 mmol/L 98-107 CL) Chemistry (test code = 25 mmol/L 22-29 CO2) Chemistry (test code = 11 mmol/L 10-20 ANGP) Chemistry (test code = Less than 4 mg/dL 9.8-20.1 BUN) Chemistry (test code = 0.66 mg/dL 0.6-1.1 CREATT) Chemistry (test code = Greater than 90 Referenc e Range for EGFRMDRD) Estimated GFR: Greater th an 90 mL/min/1.73 m2NO TE:The MDRD equation mcallister s not been validated for us e with theelderly (over 70 years of age), pregnan t women, patientswith ser ious comorbid conditi on or persons with ext remes ofbody size, mus yanira mass, or nutritional s tatus. Chemistry (test code = 85 mg/dL 70-105 GLU-T) Chemistry (test code = 8.5 mg/dL 7.8-10.44 CA) Chemistry (test code = 0.8 mg/dL 0.2-1.2 TBILI) Chemistry (test code = 6.5 g/dL 6.0-8.3 TP) Chemistry (test code = 3.6 g/dL 3.5-5.0 ALB) Chemistry (test code = 2.9 g/dL 2.4-3.5 GLOB) Chemistry (test code = 1.2 g/dL 1.2-2.2 AG) Chemistry (test code = 641 U/L 40-150 ALP) Chemistry (test code = 53 U/L 5-34 AST) Chemistry (test code = 86 U/L 8-55 ALT) Reference Lab [id number] 22:07:00 Test Item Value Reference Range Comments Reference Lab Testing (test 785 IU/L 39-117 code = ISOALKT) Reference Lab Testing (test 25 % 14-68 code = ISOALKBT) Reference Lab Testing (test 74 % 18-85 code = ISOALKLT) Reference Lab Testing (test 1 % 0-18 Perf ormed at: [facility] code = ISOALKIT) [address] [place], [place] [id number] Director: Chico wells MD, Phone: [phone] at: [facility] [address] [place], [place] [id number] Director: Gill Rider MD, Phone: [phone] [id number] 11:48:00 Test Item Value Reference Range Comments Chemistry (test code = TBILI) 0.7 mg/dL 0.2-1.2 Chemistry (test code = DBILI) 0.6 mg/dL 0.1-0.3 Chemistry (test code = TP) 5.9 g/dL 6.0-8.3 Chemistry (test code = ALB) 3.4 g/dL 3.5-5.0 Chemistry (test code = ALP) 635 U/L 40-150 Chemistry (test code = AST) 57 U/L 5-34 Chemistry (test code = ALT) 92 U/L 8-55 [id number] 06:08:00 Test Item Value Reference Range Comments Chemistry (test code = 140 mmol/L 136-145 NA-T) Chemistry (test code = 3.7 mmol/L 3.5-5.1 K-T) Chemistry (test code = 107 mmol/L 98-107 CL) Chemistry (test code = 29 mmol/L 22-29 CO2) Chemistry (test code = 8 mmol/L 10-20 ANGP) Chemistry (test code = 4 mg/dL 9.8-20.1 BUN) Chemistry (test code = 0.64 mg/dL 0.6-1.1 CREATT) Chemistry (test code = Greater than 90 Referenc e Range for EGFRMDRD) Estimated GFR: Greater grant n 90 mL/min/1.73 m2NO TE:The MDRD equation has not been validated for us e with theelderly (over 70 years of age), pregnan t women, patientswith ser ious comorbid conditi on or persons with ext remes ofbody size, mus yanira mass, or nutritional s tatus. Chemistry (test code = 91 mg/dL 70-105 GLU-T) Chemistry (test code = 8.5 mg/dL 7.8-10.44 CA) [id number] 06:06:00 Test Item Value Reference Range Comments Chemistry (test code = TBILI) 0.9 mg/dL 0.2-1.2 Chemistry (test code = DBILI) 0.7 mg/dL 0.1-0.3 Chemistry (test code = TP) 6.1 g/dL 6.0-8.3 Chemistry (test code = ALB) 3.5 g/dL 3.5-5.0 Chemistry (test code = ALP) 766 U/L 40-150 Chemistry (test code = AST) 100 U/L 5-34 Chemistry (test code = ALT) 129 U/L 8-55 [id number] 05:57:00 Test Item Value Reference Range Comments Hematology (test code = WBCT) 3.7 thou/uL 4.8-10.8 Hematology (test code = RBCT) 3.41 mill/uL 4.20-5.40 Hematology (test code = HGBT) 10.3 g/dL 12.0-16.0 Hematology (test code = HCTT) 31.7 % 36.0-47.0 Hematology (test code = MCV) 92.7 fl 81.0-99.0 Hematology (test code = MCH) 30.3 pg 27.0-31.0 Hematology (test code = MCHC) 32.7 g/dL 32.0-36.0 Hematology (test code = RDW) 11.8 % 11.5-14.5 Hematology (test code = PLTT) 201 thou/uL 130-400 Hematology (test code = MPV) 7.0 fL 7.4-10.4 Hematology (test code = %NEUT) 45.6 % 42.0-75.0 Hematology (test code = %LYMPH) 38.8 % 21.0-51.0 Hematology (test code = %MONO) 7.8 % 0.0-10.0 Hematology (test code = %EOS) 7.4 % 0.0-10.0 Hematology (test code = %BASO) 0.4 % 0.0-1.0 Hematology (test code = NEUT#) 1.7 thou/uL 1.40-6.50 Hematology (test code = LYMPH#) 1.4 thou/uL 1.20-3.40 Hematology (test code = MONO#) 0.3 thou/uL 0.11-0.59 Hematology (test code = EOS#) 0.3 thou/uL 0.0-0.7 Hematology (test code = BASO#) 0.0 thou/uL 0.0-0.2 [id number] 05:55:00 Test Item Value Reference Range Comments Coagulation (test code = 13.5 SEC 12.0-14.7 PT-T) Coagulation (test code = 1.0 ATTENTION: READ INR) CAREFULLY--- -The recommended therapeutic ranges for oral anticoa gulanttreatments are: Low Intensity: 1.5 - 2.0 Moderate Inten sity: 2.0 - 3.0 High Int ensity (1): 2.5 - 3.5 Hi gh Intensity (2): 3.0 - 4.0 CRITICAL: > 4.0 Anticoagulant? [id number] 05:36:00 Test Item Value Reference Range Comments Chemistry (test code = 140 mmol/L 136-145 NA-T) Chemistry (test code = 3.9 mmol/L 3.5-5.1 K-T) Chemistry (test code = 107 mmol/L 98-107 CL) Chemistry (test code = 27 mmol/L 22-29 CO2) Chemistry (test code = 10 mmol/L 10-20 ANGP) Chemistry (test code = 7 mg/dL 9.8-20.1 BUN) Chemistry (test code = 0.64 mg/dL 0.6-1.1 CREATT) Chemistry (test code = Greater than 90 Referenc e Range for EGFRMDRD) Estimated GFR: Greater grant n 90 mL/min/1.73 m2NO TE:The MDRD equation has not been validated for us e with theelderly (over 70 years of age), pregnan t women, patientswith ser ious comorbid conditi on or persons with ext remes ofbody size, mus yanira mass, or nutritional s tatus. Chemistry (test code = 89 mg/dL 70-105 GLU-T) Chemistry (test code = 8.9 mg/dL 7.8-10.44 CA) [id number] 05:33:00 Test Item Value Reference Range Comments Chemistry (test code = TBILI) 0.9 mg/dL 0.2-1.2 Chemistry (test code = DBILI) 0.6 mg/dL 0.1-0.3 Chemistry (test code = TP) 6.8 g/dL 6.0-8.3 Chemistry (test code = ALB) 3.8 g/dL 3.5-5.0 Chemistry (test code = ALP) 864 U/L 40-150 Chemistry (test code = AST) 147 U/L 5-34 Chemistry (test code = ALT) 160 U/L 8-55 [id number] 05:28:00 Test Item Value Reference Range Comments Hematology (test code = WBCT) 4.6 thou/uL 4.8-10.8 Hematology (test code = RBCT) 3.58 mill/uL 4.20-5.40 Hematology (test code = HGBT) 10.8 g/dL 12.0-16.0 Hematology (test code = HCTT) 32.3 % 36.0-47.0 Hematology (test code = MCV) 90.2 fl 81.0-99.0 Hematology (test code = MCH) 30.2 pg 27.0-31.0 Hematology (test code = MCHC) 33.4 g/dL 32.0-36.0 Hematology (test code = RDW) 11.8 % 11.5-14.5 Hematology (test code = PLTT) 217 thou/uL 130-400 Hematology (test code = MPV) 6.6 fL 7.4-10.4 Hematology (test code = %NEUT) 57.5 % 42.0-75.0 Hematology (test code = %LYMPH) 30.2 % 21.0-51.0 Hematology (test code = %MONO) 7.6 % 0.0-10.0 Hematology (test code = %EOS) 3.6 % 0.0-10.0 Hematology (test code = %BASO) 1.1 % 0.0-1.0 Hematology (test code = NEUT#) 2.7 thou/uL 1.40-6.50 Hematology (test code = LYMPH#) 1.4 thou/uL 1.20-3.40 Hematology (test code = MONO#) 0.4 thou/uL 0.11-0.59 Hematology (test code = EOS#) 0.2 thou/uL 0.0-0.7 Hematology (test code = BASO#) 0.1 thou/uL 0.0-0.2 Chemistry - Elizabeth [id number] 13:02:00 Test Item Value Reference Range Comments Chemistry - Elizabeth Negative Negative Testing (test code = ANASC) Chemistry - Elizabeth Negative Negative SYMPHONY SCREEN INCLUDES: Testing (test code = SIDDIQUI, SS-A /Ro, SS-B/La, ANASYM) U1RNP,RNP70, SCL -70, CENP, Meka-1 Chemistry - Elizabeth 0.10 Ratio <0.7 Negative Testing (test code = ANASYMQUANT) Chemistry - Elizabeth 3.1 IU/mL <10 Negative Testing (test code = DSDNAIGG) Chemistry - Elizabeth dsDNA Less than Testing (test code = 10.0 IU/mL = Negative DSDNAINTERP) 10.0 - 1 5.0 IU/mL = Equivocal Greater than 15. 0 IU/mL = POSITIVE Chemistry - Elizabeth NEW METHOD Values obt ained with Testing (test code = different a ssay methods ELIAANANEWMETH) CANNOT be usedINTERCHANGEA ES.If in the course of mo nitoring a patient, the a ssay methodused for determining leve ls is changed, a newbaseline/seri al monitoring may n eed to be performed.SEE RE FERENCE RANGES FOR NEW METHODOLOGY.Meth od: Enzyme Linked Fl uorescent Immunoassay (Elizabeth)References : [employer] Elizabeth Package Inserts - Directions forUs e, June,July 2016, [employer]. [id number] 05:00:00 Test Item Value Reference Range Comments Chemistry (test code = TBILI) 0.9 mg/dL 0.2-1.2 Chemistry (test code = DBILI) 0.6 mg/dL 0.1-0.3 Chemistry (test code = TP) 6.9 g/dL 6.0-8.3 Chemistry (test code = ALB) 3.9 g/dL 3.5-5.0 Chemistry (test code = ALP) 837 U/L 40-150 Chemistry (test code = AST) 117 U/L 5-34 Chemistry (test code = ALT) 144 U/L 8-55 [id number] 04:50:00 Test Item Value Reference Range Comments Chemistry (test code = 139 mmol/L 136-145 NA-T) Chemistry (test code = 3.9 mmol/L 3.5-5.1 K-T) Chemistry (test code = 107 mmol/L 98-107 CL) Chemistry (test code = 24 mmol/L 22-29 CO2) Chemistry (test code = 12 mmol/L 10-20 ANGP) Chemistry (test code = 9 mg/dL 9.8-20.1 BUN) Chemistry (test code = 0.63 mg/dL 0.6-1.1 CREATT) Chemistry (test code = Greater than 90 Referenc e Range for EGFRMDRD) Estimated GFR: Greater grant n 90 mL/min/1.73 m2NO TE:The MDRD equation has not been validated for us e with theelderly (over 70 years of age), pregnan t women, patientswith ser ious comorbid conditi on or persons with ext remes ofbody size, mus yanira mass, or nutritional s tatus. Chemistry (test code = 90 mg/dL 70-105 GLU-T) Chemistry (test code = 8.4 mg/dL 7.8-10.44 CA) [id number] 04:39:00 Test Item Value Reference Range Comments Hematology (test code = WBCT) 4.8 thou/uL 4.8-10.8 Hematology (test code = RBCT) 3.63 mill/uL 4.20-5.40 Hematology (test code = HGBT) 10.8 g/dL 12.0-16.0 Hematology (test code = HCTT) 32.7 % 36.0-47.0 Hematology (test code = MCV) 90.0 fl 81.0-99.0 Hematology (test code = MCH) 29.9 pg 27.0-31.0 Hematology (test code = MCHC) 33.2 g/dL 32.0-36.0 Hematology (test code = RDW) 12.1 % 11.5-14.5 Hematology (test code = PLTT) 212 thou/uL 130-400 Hematology (test code = MPV) 6.1 fL 7.4-10.4 Hematology (test code = %NEUT) 57.1 % 42.0-75.0 Hematology (test code = %LYMPH) 29.2 % 21.0-51.0 Hematology (test code = %MONO) 6.9 % 0.0-10.0 Hematology (test code = %EOS) 5.8 % 0.0-10.0 Hematology (test code = %BASO) 1.0 % 0.0-1.0 Hematology (test code = NEUT#) 2.7 thou/uL 1.40-6.50 Hematology (test code = LYMPH#) 1.4 thou/uL 1.20-3.40 Hematology (test code = MONO#) 0.3 thou/uL 0.11-0.59 Hematology (test code = EOS#) 0.3 thou/uL 0.0-0.7 Hematology (test code = BASO#) 0.0 thou/uL 0.0-0.2 [id number] 17:07:00 Test Item Value Reference Range Comments Chemistry (test code = IGG) 1032.00 mg/dL 552-1631 [id number] 17:07:00 Test Item Value Reference Range Comments Chemistry (test code = IGM) 215.00 mg/dL 33-293 [id number] 00:50:00 Test Item Value Reference Range Comments Urinalysis (test code = UACLR) YELLOW Yellow Urinalysis (test code = UACLY) CLEAR Clear Urinalysis (test code = SPGR) Greater than 1.060 1.002-1.036 Urinalysis (test code = CELSO) 6.5 5.0-9.0 Urinalysis (test code = UALEU) Negative Negative Urinalysis (test code = UANIT) Negative Negative Urinalysis (test code = PROUADIP) Negative mg/dL Neg-Trace Urinalysis (test code = GLUCU) Negative mg/dL Negative Urinalysis (test code = KETU) Negative mg/dL Negative Urinalysis (test code = UAUROB) 1.0 mg/dL 0.2-1.0 Urinalysis (test code = UABIL) Negative Negative Urinalysis (test code = UABLD) Negative Negative Urine Source: Urine Clean CatchChemistry - [id number] 00:25:00 Test Item Value Reference Range Comments Chemistry - Specials (test code = Non-Reactive NonReactive THEPAIGM) Chemistry - Specials (test code = THBSAG) Non-Reactive S/CO NonR eactive Chemistry - Specials (test code = INTHBCM) Non-Reactive NonRe active Chemistry - Specials (test code = INTHEPC) Non-Reactive NonRe active [id number] 22:12:00 Test Item Value Reference Range Comments Chemistry (test code = NA-T) 139 mmol/L 136-145 Chemistry (test code = K-T) 4.0 mmol/L 3.5-5.1 Chemistry (test code = CL) 102 mmol/L 98-107 Chemistry (test code = CO2) 25 mmol/L 22-29 Chemistry (test code = ANGP) 16 mmol/L 10-20 Chemistry (test code = BUN) 12 mg/dL 9.8-20.1 Chemistry (test code = 0.77 mg/dL 0.6-1.1 CREATT) Chemistry (test code = 78 Reference Range for Estimated EGFRMDRD) GFR: Greater than 90 mL/min/1 .73 m2NOTE:The MDRD equation mcallister s not been validated for us e with theelderly (over 70 years of age), w omen, patientswith ser ious comorbid condition or per sons with extremes ofbody size, muscle mass, or nutriti onal status. Chemistry (test code = 95 mg/dL 70-105 GLU-T) Chemistry (test code = CA) 10.2 mg/dL 7.8-10.44 Chemistry (test code = 0.8 mg/dL 0.2-1.2 TBILI) Chemistry (test code = TP) 9.2 g/dL 6.0-8.3 Chemistry (test code = ALB) 4.9 g/dL 3.5-5.0 Chemistry (test code = GLOB) 4.3 g/dL 2.4-3.5 Chemistry (test code = AG) 1.1 g/dL 1.2-2.2 Chemistry (test code = ALP) 1031 U/L 40-150 Chemistry (test code = AST) 117 U/L 5-34 Chemistry (test code = ALT) 196 U/L 8-55 [id number] 22:12:00 Test Item Value Reference Range Comments Chemistry (test code = LIP) 22 U/L 8-78 [id number] 21:50:00 Test Item Value Reference Range Comments Hematology (test code = WBCT) 8.9 thou/uL 4.8-10.8 Hematology (test code = RBCT) 4.69 mill/uL 4.20-5.40 Hematology (test code = HGBT) 14.0 g/dL 12.0-16.0 Hematology (test code = HCTT) 43.7 % 36.0-47.0 Hematology (test code = MCV) 93.1 fl 81.0-99.0 Hematology (test code = MCH) 29.9 pg 27.0-31.0 Hematology (test code = MCHC) 32.2 g/dL 32.0-36.0 Hematology (test code = RDW) 12.5 % 11.5-14.5 Hematology (test code = PLTT) 369 thou/uL 130-400 Hematology (test code = MPV) 6.8 fL 7.4-10.4 Hematology (test code = %NEUT) 61.7 % 42.0-75.0 Hematology (test code = %LYMPH) 28.1 % 21.0-51.0 Hematology (test code = %MONO) 5.3 % 0.0-10.0 Hematology (test code = %EOS) 3.7 % 0.0-10.0 Hematology (test code = %BASO) 1.2 % 0.0-1.0 Hematology (test code = NEUT#) 5.5 thou/uL 1.40-6.50 Hematology (test code = LYMPH#) 2.5 thou/uL 1.20-3.40 Hematology (test code = MONO#) 0.5 thou/uL 0.11-0.59 Hematology (test code = EOS#) 0.3 thou/uL 0.0-0.7 Hematology (test code = BASO#) 0.1 thou/uL 0.0-0.2 [id number] 22:49:00 Test Item Value Reference Range Comments Chemistry (test code = 139 mmol/L 136-145 NA-T) Chemistry (test code = 3.9 mmol/L 3.5-5.1 K-T) Chemistry (test code = 105 mmol/L 98-107 CL) Chemistry (test code = 22 mmol/L 22-29 CO2) Chemistry (test code = 16 mmol/L 10-20 ANGP) Chemistry (test code = 10 mg/dL 9.8-20.1 BUN) Chemistry (test code = 0.63 mg/dL 0.6-1.1 CREATT) Chemistry (test code = Greater than 90 Referenc e Range for EGFRMDRD) Estimated GFR: Greater grant n 90 mL/min/1.73 m2NO TE:The MDRD equation has not been validated for us e with theelderly (over 70 years of age), pregnan t women, patientswith ser ious comorbid conditi on or persons with ext remes ofbody size, mus yanira mass, or nutritional s tatus. Chemistry (test code = 103 mg/dL 70-105 GLU-T) Chemistry (test code = 9.1 mg/dL 7.8-10.44 CA) Chemistry (test code = 0.8 mg/dL 0.2-1.2 TBILI) Chemistry (test code = 7.9 g/dL 6.0-8.3 TP) Chemistry (test code = 4.1 g/dL 3.5-5.0 ALB) Chemistry (test code = 3.8 g/dL 2.4-3.5 GLOB) Chemistry (test code = 1.1 g/dL 1.2-2.2 AG) Chemistry (test code = 696 U/L 40-150 ALP) Chemistry (test code = 73 U/L 5-34 AST) Chemistry (test code = 78 U/L 8-55 ALT) [id number] 22:49:00 Test Item Value Reference Range Comments Chemistry (test code = LIP) 12 U/L 8-78 [id number] 22:24:00 Test Item Value Reference Range Comments Hematology (test code = WBCT) 6.0 thou/uL 4.8-10.8 Hematology (test code = RBCT) 3.59 mill/uL 4.20-5.40 Hematology (test code = HGBT) 10.9 g/dL 12.0-16.0 Hematology (test code = HCTT) 32.3 % 36.0-47.0 Hematology (test code = MCV) 89.9 fl 81.0-99.0 Hematology (test code = MCH) 30.4 pg 27.0-31.0 Hematology (test code = MCHC) 33.8 g/dL 32.0-36.0 Hematology (test code = RDW) 12.6 % 11.5-14.5 Hematology (test code = PLTT) 251 thou/uL 130-400 Hematology (test code = MPV) 7.3 fL 7.4-10.4 Hematology (test code = %NEUT) 63.7 % 42.0-75.0 Hematology (test code = %LYMPH) 24.9 % 21.0-51.0 Hematology (test code = %MONO) 8.4 % 0.0-10.0 Hematology (test code = %EOS) 2.5 % 0.0-10.0 Hematology (test code = %BASO) 0.5 % 0.0-1.0 Hematology (test code = NEUT#) 3.8 thou/uL 1.40-6.50 Hematology (test code = LYMPH#) 1.5 thou/uL 1.20-3.40 Hematology (test code = MONO#) 0.5 thou/uL 0.11-0.59 Hematology (test code = EOS#) 0.2 thou/uL 0.0-0.7 Hematology (test code = BASO#) 0.0 thou/uL 0.0-0.2 [id number] 22:00:00 Test Item Value Reference Range Comments Urinalysis (test code = UACLR) YELLOW Yellow Urinalysis (test code = UACLY) CLEAR Clear Urinalysis (test code = SPGR) 1.012 1.002-1.036 Urinalysis (test code = CELSO) 6.0 5.0-9.0 Urinalysis (test code = UALEU) Negative Negative Urinalysis (test code = UANIT) Negative Negative Urinalysis (test code = PROUADIP) Negative mg/dL Neg-Trace Urinalysis (test code = GLUCU) Negative mg/dL Negative Urinalysis (test code = KETU) Negative mg/dL Negative Urinalysis (test code = UAUROB) 1.0 mg/dL 0.2-1.0 Urinalysis (test code = UABIL) Negative Negative Urinalysis (test code = UABLD) Negative Negative Urine Source: Urine Clean [id number] 09:28:00 Test Item Value Reference Range Comments Accuchek (test code = ACU) 99 mg/dL 70-110 [id number] 09:14:00 Test Item Value Reference Range Comments Urinalysis (test code = UACLR) YELLOW Yellow Urinalysis (test code = UACLY) CLEAR Clear Urinalysis (test code = SPGR) 1.012 1.002-1.036 Urinalysis (test code = CELSO) 6.5 5.0-9.0 Urinalysis (test code = UALEU) Negative Negative Urinalysis (test code = UANIT) Negative Negative Urinalysis (test code = PROUADIP) Negative mg/dL Neg-Trace Urinalysis (test code = GLUCU) Negative mg/dL Negative Urinalysis (test code = KETU) Negative mg/dL Negative Urinalysis (test code = UAUROB) 1.0 mg/dL 0.2-1.0 Urinalysis (test code = UABIL) Negative Negative Urinalysis (test code = UABLD) Negative Negative Urine Source: Urine Clean [id number] 21:28:00 Test Item Value Reference Range Comments Urinalysis (test code = UACLR) YELLOW Yellow Urinalysis (test code = UACLY) CLEAR Clear Urinalysis (test code = SPGR) 1.010 1.002-1.036 Urinalysis (test code = CELSO) 6.5 5.0-9.0 Urinalysis (test code = UALEU) Negative Negative Urinalysis (test code = UANIT) Negative Negative Urinalysis (test code = PROUADIP) Negative mg/dL Neg-Trace Urinalysis (test code = GLUCU) Negative mg/dL Negative Urinalysis (test code = KETU) Negative mg/dL Negative Urinalysis (test code = UAUROB) 1.0 mg/dL 0.2-1.0 Urinalysis (test code = UABIL) Negative Negative Urinalysis (test code = UABLD) Negative Negative Urine Source: Urine Clean [id number] 21:09:00 Test Item Value Reference Range Comments Chemistry (test code = 137 mmol/L 136-145 NA-T) Chemistry (test code = 3.9 mmol/L 3.5-5.1 K-T) Chemistry (test code = 103 mmol/L 98-107 CL) Chemistry (test code = 25 mmol/L 22-29 CO2) Chemistry (test code = 13 mmol/L 10-20 ANGP) Chemistry (test code = 13 mg/dL 9.8-20.1 BUN) Chemistry (test code = 0.65 mg/dL 0.6-1.1 CREATT) Chemistry (test code = Greater than 90 Referenc e Range for EGFRMDRD) Estimated GFR: Greater grant n 90 mL/min/1.73 m2NO TE:The MDRD equation has not been validated for us e with theelderly (over 70 years of age), pregnan t women, patientswith ser ious comorbid conditi on or persons with ext remes ofbody size, mus yanira mass, or nutritional s tatus. Chemistry (test code = 94 mg/dL 70-105 GLU-T) Chemistry (test code = 9.1 mg/dL 7.8-10.44 CA) Chemistry (test code = 0.7 mg/dL 0.2-1.2 TBILI) Chemistry (test code = 7.8 g/dL 6.0-8.3 TP) Chemistry (test code = 4.1 g/dL 3.5-5.0 ALB) Chemistry (test code = 3.7 g/dL 2.4-3.5 GLOB) Chemistry (test code = 1.1 g/dL 1.2-2.2 AG) Chemistry (test code = 794 U/L 40-150 ALP) Chemistry (test code = 106 U/L 5-34 AST) Chemistry (test code = 95 U/L 8-55 ALT) [id number] 21:09:00 Test Item Value Reference Range Comments Chemistry (test code = LIP) 39 U/L 8-78 [id number] 20:49:00 Test Item Value Reference Range Comments Hematology (test code = WBCT) 7.1 thou/uL 4.8-10.8 Hematology (test code = RBCT) 3.60 mill/uL 4.20-5.40 Hematology (test code = HGBT) 11.0 g/dL 12.0-16.0 Hematology (test code = HCTT) 33.4 % 36.0-47.0 Hematology (test code = MCV) 92.7 fl 81.0-99.0 Hematology (test code = MCH) 30.5 pg 27.0-31.0 Hematology (test code = MCHC) 32.9 g/dL 32.0-36.0 Hematology (test code = RDW) 12.4 % 11.5-14.5 Hematology (test code = PLTT) 332 thou/uL 130-400 Hematology (test code = MPV) 6.3 fL 7.4-10.4 Hematology (test code = %NEUT) 60.0 % 42.0-75.0 Hematology (test code = %LYMPH) 27.6 % 21.0-51.0 Hematology (test code = %MONO) 7.5 % 0.0-10.0 Hematology (test code = %EOS) 4.4 % 0.0-10.0 Hematology (test code = %BASO) 0.6 % 0.0-1.0 Hematology (test code = NEUT#) 4.3 thou/uL 1.40-6.50 Hematology (test code = LYMPH#) 2.0 thou/uL 1.20-3.40 Hematology (test code = MONO#) 0.5 thou/uL 0.11-0.59 Hematology (test code = EOS#) 0.3 thou/uL 0.0-0.7 Hematology (test code = BASO#) 0.0 thou/uL 0.0-0.2 [id number] 21:34:00 Test Item Value Reference Range Comments Toxicology (test code Not Detected NotDetected = ROSMERY) Toxicology (test code Not Detected NotDetected = PCP) Toxicology (test code Not Detected NotDetected = COCN) Toxicology (test code Not Detected NotDetected = METHAMPU) Toxicology (test code Detected NotDetected = OPIA) Toxicology (test code Not Detected NotDetected = AMPHU) Toxicology (test code Detected NotDetected = TEVIN) Toxicology (test code Detected NotDetected = TRICY) Toxicology (test code Not Detected NotDetected = MTD) Toxicology (test code Not Detected NotDetected = SLIM) Toxicology (test code Detected NotDetected = OXYCOD) Toxicology (test code Not Detected NotDetected = PPX) Toxicology (test code The M edTox Profile-V Panel = MTCUTOFF) for Qualitative Drugs ofAbuse assays a re for presumptive scre ening testing only.The drug class and detection li mits are as follows:Drug Cla ss Detection LimitAmphetamine 500 ng/mL*Ba rbiturates 200 ng/mLBenzodiazep cookie 150 ng/mL*Co timmy 150 ng/mL*Methamphet amine 500 ng/mL*M ethadone 20 0 ng/mL*Opiates 100 ng/mL*O xycodone 10 0 ng/mLPCP 25 ng/mLPropoxyphen e 300 ng/mLTri cyclic Antidepressants 300 ng/mLCannabinoid s (THC) 50 ng/mLTes ts which yield a presumpt kourtney positive result must betested using a more specific alterna te chemical method inorder t o obtain a confirmed analyt ical result. Additionalconfir mation and identification m ay be ordered on a rou tinebasis, if desired. Pre sumptive positive urines are held fortwo weeks. Urine Source: Urine Clean [id number] 19:17:00 Test Item Value Reference Range Comments Urinalysis (test code = UACLR) YELLOW Yellow Urinalysis (test code = UACLY) CLEAR Clear Urinalysis (test code = SPGR) 1.013 1.002-1.036 Urinalysis (test code = CELSO) 6.0 5.0-9.0 Urinalysis (test code = UALEU) Negative Negative Urinalysis (test code = UANIT) Negative Negative Urinalysis (test code = PROUADIP) Negative mg/dL Neg-Trace Urinalysis (test code = GLUCU) Negative mg/dL Negative Urinalysis (test code = KETU) Negative mg/dL Negative Urinalysis (test code = UAUROB) 1.0 mg/dL 0.2-1.0 Urinalysis (test code = UABIL) Negative Negative Urinalysis (test code = UABLD) Negative Negative Urine Source: Urine [id number] 18:48:00 Test Item Value Reference Range Comments Chemistry (test code = NA-T) 137 mmol/L 136-145 Chemistry (test code = K-T) 3.9 mmol/L 3.5-5.1 Chemistry (test code = CL) 105 mmol/L 98-107 Chemistry (test code = CO2) 21 mmol/L 22-29 Chemistry (test code = ANGP) 15 mmol/L 10-20 Chemistry (test code = BUN) 13 mg/dL 9.8-20.1 Chemistry (test code = 0.72 mg/dL 0.6-1.1 CREATT) Chemistry (test code = 84 Reference Range for Estimated EGFRMDRD) GFR: Greater than 90 mL/min/1 .73 m2NOTE:The MDRD equation mcallister s not been validated for us e with theelderly (over 70 years of age), w omen, patientswith ser ious comorbid condition or per sons with extremes ofbody size, muscle mass, or nutriti onal status. Chemistry (test code = 82 mg/dL 70-105 GLU-T) Chemistry (test code = CA) 9.3 mg/dL 7.8-10.44 Chemistry (test code = 0.9 mg/dL 0.2-1.2 TBILI) Chemistry (test code = TP) 8.1 g/dL 6.0-8.3 Chemistry (test code = ALB) 4.2 g/dL 3.5-5.0 Chemistry (test code = GLOB) 3.9 g/dL 2.4-3.5 Chemistry (test code = AG) 1.1 g/dL 1.2-2.2 Chemistry (test code = ALP) 750 U/L 40-150 Chemistry (test code = AST) 68 U/L 5-34 Chemistry (test code = ALT) 84 U/L 8-55 [id number] 18:48:00 Test Item Value Reference Range Comments Chemistry (test code = JORGE) 53.0 U/L 25-125 [id number] 18:48:00 Test Item Value Reference Range Comments Chemistry (test code = LIP) 10 U/L 8-78 [id number] 18:19:00 Test Item Value Reference Range Comments Hematology (test code = WBCT) 6.3 thou/uL 4.8-10.8 Hematology (test code = RBCT) 3.74 mill/uL 4.20-5.40 Hematology (test code = HGBT) 11.3 g/dL 12.0-16.0 Hematology (test code = HCTT) 34.8 % 36.0-47.0 Hematology (test code = MCV) 93.0 fl 81.0-99.0 Hematology (test code = MCH) 30.1 pg 27.0-31.0 Hematology (test code = MCHC) 32.4 g/dL 32.0-36.0 Hematology (test code = RDW) 12.1 % 11.5-14.5 Hematology (test code = PLTT) 231 thou/uL 130-400 Hematology (test code = MPV) 7.2 fL 7.4-10.4 Hematology (test code = %NEUT) 58.6 % 42.0-75.0 Hematology (test code = %LYMPH) 29.3 % 21.0-51.0 Hematology (test code = %MONO) 6.6 % 0.0-10.0 Hematology (test code = %EOS) 4.2 % 0.0-10.0 Hematology (test code = %BASO) 1.2 % 0.0-1.0 Hematology (test code = NEUT#) 3.7 thou/uL 1.40-6.50 Hematology (test code = LYMPH#) 1.8 thou/uL 1.20-3.40 Hematology (test code = MONO#) 0.4 thou/uL 0.11-0.59 Hematology (test code = EOS#) 0.3 thou/uL 0.0-0.7 Hematology (test code = BASO#) 0.1 thou/uL 0.0-0.2 Culture, [id number] 10:22:00 Test Item Value Reference Range Comments Culture, Urine (test code = URC) NF Culture, Urine (test code = URC1) 10 MSF [id number] 17:38:00 Test Item Value Reference Range Comments Chemistry (test code = PHOS) 2.9 mg/dL 2.3-4.7 [id number] 17:04:00 Test Item Value Reference Range Comments Chemistry (test code = NA-T) 138 mmol/L 136-145 Chemistry (test code = K-T) 4.5 mmol/L 3.5-5.1 Chemistry (test code = CL) 104 mmol/L 98-107 Chemistry (test code = CO2) 25 mmol/L 22-29 Chemistry (test code = ANGP) 14 mmol/L 10-20 Chemistry (test code = BUN) 14 mg/dL 9.8-20.1 Chemistry (test code = 0.68 mg/dL 0.6-1.1 CREATT) Chemistry (test code = 90 Reference Range for Estimated EGFRMDRD) GFR: Greater than 90 mL/min/1 .73 m2NOTE:The MDRD equation mcallister s not been validated for us e with theelderly (over 70 years of age), w omen, patientswith ser ious comorbid condition or per sons with extremes ofbody size, muscle mass, or nutriti onal status. Chemistry (test code = 94 mg/dL 70-105 GLU-T) Chemistry (test code = CA) 9.4 mg/dL 7.8-10.44 Chemistry (test code = 0.8 mg/dL 0.2-1.2 TBILI) Chemistry (test code = TP) 8.0 g/dL 6.0-8.3 Chemistry (test code = ALB) 4.1 g/dL 3.5-5.0 Chemistry (test code = GLOB) 3.9 g/dL 2.4-3.5 Chemistry (test code = AG) 1.1 g/dL 1.2-2.2 Chemistry (test code = ALP) 940 U/L 40-150 Chemistry (test code = AST) 88 U/L 5-34 Chemistry (test code = ALT) 95 U/L 8-55 Chemistry - BNP, HgbA1c, [id number] 17:04:00 Test Item Value Reference Range Comments Chemistry - BNP, HgbA1c, 4.9 % 4.0-6.0 Therape utic goals for glycemic PTHi (test code = ITHX0YQ) contr ol (ADA)Adults:- Goal of therapy: Less th an 7.0% HbA1c- Action suggested: Great er than 8.0% WyB3bUivbjohtc p atients:- Toddlers and preschoolers : Less than 8.5% (but Greater than 7 .5%)- School age (6-12 years): Le ss than 8%- Adolescents and young adults (13-19 years): Less grant n 7.5%Diagnosing diabetes (ADA)- HbA1c: Greater than or equal to 6.5% Values of 5.7 - 6.4% indic ate HIGH risk for de veloping DiabetesInternat ional Expert Committee Report on the Role of the P4EJbfeq in the Diagnosis of Diabetes. Diabet es Care 2009July;32(7):1 [id number], Diagnosis clas sification of diabetes [facility]; 33 Suppl 1:S62 [id number] 16:59:00 Test Item Value Reference Range Comments Chemistry (test code = CRP) 1.16 mg/dL = or < 0.5 What test does the doctor want? C-REACTIVE PROTEIN (CRP)[id number] 16:53:00 Test Item Value Reference Range Comments Urinalysis (test code = UACLR) Yellow Yellow Urinalysis (test code = UACLY) Clear Clear Urinalysis (test code = SPGR) 1.020 1.005-1.030 Urinalysis (test code = CELSO) 6.0 5.0-9.0 Urinalysis (test code = UALEU) Negative Negative Urinalysis (test code = UANIT) Negative Negative Urinalysis (test code = PROUADIP) Negative mg/dL Neg-Trace Urinalysis (test code = GLUCU) Negative mg/dL Negative Urinalysis (test code = KETU) Negative mg/dL Negative Urinalysis (test code = UAUROB) 4.0 mg/dL 0.2-1.0 Urinalysis (test code = UABIL) Negative Negative Urinalysis (test code = UABLD) Negative Negative Urinalysis (test code = UARBC) None Seen HPF 0-3 Urinalysis (test code = UAWBC) 0-3 HPF 0-3 Urinalysis (test code = UASQUAM) 7-10 HPF 0-3 Urinalysis (test code = UABAC) Rare-Few HPF None Seen Urine Source: Urine Clean [id number] 16:46:00 Test Item Value Reference Range Comments Hematology (test code = WBCT) 6.2 thou/uL 4.8-10.8 Hematology (test code = RBCT) 3.81 mill/uL 4.20-5.40 Hematology (test code = HGBT) 11.2 g/dL 12.0-16.0 Hematology (test code = HCTT) 35.7 % 36.0-47.0 Hematology (test code = MCV) 93.8 fl 81.0-99.0 Hematology (test code = MCH) 29.5 pg 27.0-31.0 Hematology (test code = MCHC) 31.5 g/dL 32.0-36.0 Hematology (test code = RDW) 13.6 % 11.5-14.5 Hematology (test code = PLTT) 284 thou/uL 130-400 Hematology (test code = MPV) 6.8 fL 7.4-10.4 Hematology (test code = %NEUT) 67.8 % 42.0-75.0 Hematology (test code = %LYMPH) 23.1 % 21.0-51.0 Hematology (test code = %MONO) 6.2 % 0.0-10.0 Hematology (test code = %EOS) 2.0 % 0.0-10.0 Hematology (test code = %BASO) 0.9 % 0.0-1.0 Hematology (test code = NEUT#) 4.2 thou/uL 1.40-6.50 Hematology (test code = LYMPH#) 1.4 thou/uL 1.20-3.40 Hematology (test code = MONO#) 0.4 thou/uL 0.11-0.59 Hematology (test code = EOS#) 0.1 thou/uL 0.0-0.7 Hematology (test code = BASO#) 0.1 thou/uL 0.0-0.2 [id number] 21:59:00 Test Item Value Reference Range Comments Urinalysis (test code = UACLR) YELLOW Yellow Urinalysis (test code = UACLY) CLEAR Clear Urinalysis (test code = SPGR) 1.014 1.002-1.036 Urinalysis (test code = CELSO) 6.0 5.0-9.0 Urinalysis (test code = UALEU) Trace Negative Urinalysis (test code = UANIT) Negative Negative Urinalysis (test code = PROUADIP) Negative mg/dL Neg-Trace Urinalysis (test code = GLUCU) Negative mg/dL Negative Urinalysis (test code = KETU) Negative mg/dL Negative Urinalysis (test code = UAUROB) 1.0 mg/dL 0.2-1.0 Urinalysis (test code = UABIL) Negative Negative Urinalysis (test code = UABLD) Negative Negative Urinalysis (test code = UARBC) 4-6 HPF 0-3 Urinalysis (test code = UAWBC) 11-20 HPF 0-3 Urinalysis (test code = UASQUAM) 4-6 HPF 0-3 Urinalysis (test code = UABAC) 3+ HPF None Seen Urinalysis (test code = UACAST) 0-3 HYALINE CAST LPF 0-3 Hyaline Urine Source: Urine Clean CatchSepsis - Lactic Acid >2 [id number] 23:59:00 Test Item Value Reference Range Comments Sepsis - Lactic Acid >2 Additional Lactate testi ng will be performed Rflx (test code = in 3 hrs accor xochilt to the QUBBW7C) SepsisProtocol. [id number] 21:12:00 Test Item Value Reference Range Comments Chemistry (test code = JORGE) 59.0 U/L 25-125 [id number] 20:59:00 Test Item Value Reference Range Comments Chemistry (test code = 141 mmol/L 136-145 NA-T) Chemistry (test code = 3.7 mmol/L 3.5-5.1 K-T) Chemistry (test code = 108 mmol/L 98-107 CL) Chemistry (test code = 24 mmol/L 22-29 CO2) Chemistry (test code = 13 mmol/L 10-20 ANGP) Chemistry (test code = 4 mg/dL 9.8-20.1 BUN) Chemistry (test code = 0.74 mg/dL 0.6-1.1 CREATT) Chemistry (test code = 82 Reference Range for EGFRMDRD) Estimated GFR: Greater grant n 90 mL/min/1.73 m2NO TE:The MDRD equation has not been validated for us e with theelderly (over 70 years of age), pregnan t women, patientswith ser ious comorbid conditi on or persons with ext remes ofbody size, mus yanira mass, or nutritional s tatus. Chemistry (test code = 98 mg/dL 70-105 GLU-T) Chemistry (test code = 8.9 mg/dL 7.8-10.44 CA) Chemistry (test code = 0.5 mg/dL 0.2-1.2 TBILI) Chemistry (test code = 7.8 g/dL 6.0-8.3 TP) Chemistry (test code = 4.0 g/dL 3.5-5.0 ALB) Chemistry (test code = 3.8 g/dL 2.4-3.5 GLOB) Chemistry (test code = 1.1 g/dL 1.2-2.2 AG) Chemistry (test code = Less than 8 U/L 40-150 ALP) Chemistry (test code = 92 U/L 5-34 AST) Chemistry (test code = 87 U/L 8-55 ALT) [id number] 20:59:00 Test Item Value Reference Range Comments Chemistry (test code = LIP) 32 U/L 8-78 Chemistry - [id number] 20:59:00 Test Item Value Reference Range Comments Chemistry - Lactate (test code = LACTSEP-T) 2.1 mmol/L 0.5- 2.2 [id number] 20:43:00 Test Item Value Reference Range Comments Urinalysis (test code = UACLR) YELLOW Yellow Urinalysis (test code = UACLY) CLEAR Clear Urinalysis (test code = SPGR) 1.008 1.002-1.036 Urinalysis (test code = CELSO) 6.5 5.0-9.0 Urinalysis (test code = UALEU) Negative Negative Urinalysis (test code = UANIT) Negative Negative Urinalysis (test code = PROUADIP) Negative mg/dL Neg-Trace Urinalysis (test code = GLUCU) Negative mg/dL Negative Urinalysis (test code = KETU) Negative mg/dL Negative Urinalysis (test code = UAUROB) 1.0 mg/dL 0.2-1.0 Urinalysis (test code = UABIL) Negative Negative Urinalysis (test code = UABLD) Negative Negative Urine Source: Urine [id number] 20:37:00 Test Item Value Reference Range Comments Hematology (test code = WBCT) 7.0 thou/uL 4.8-10.8 Hematology (test code = RBCT) 4.09 mill/uL 4.20-5.40 Hematology (test code = HGBT) 11.9 g/dL 12.0-16.0 Hematology (test code = HCTT) 36.0 % 36.0-47.0 Hematology (test code = MCV) 88.0 fl 81.0-99.0 Hematology (test code = MCH) 29.0 pg 27.0-31.0 Hematology (test code = MCHC) 32.9 g/dL 32.0-36.0 Hematology (test code = RDW) 14.1 % 11.5-14.5 Hematology (test code = PLTT) 299 thou/uL 130-400 Hematology (test code = MPV) 6.7 fL 7.4-10.4 Hematology (test code = %NEUT) 64.6 % 42.0-75.0 Hematology (test code = %LYMPH) 22.3 % 21.0-51.0 Hematology (test code = %MONO) 9.1 % 0.0-10.0 Hematology (test code = %EOS) 2.5 % 0.0-10.0 Hematology (test code = %BASO) 1.4 % 0.0-1.0 Hematology (test code = NEUT#) 4.5 thou/uL 1.40-6.50 Hematology (test code = LYMPH#) 1.6 thou/uL 1.20-3.40 Hematology (test code = MONO#) 0.6 thou/uL 0.11-0.59 Hematology (test code = EOS#) 0.2 thou/uL 0.0-0.7 Hematology (test code = BASO#) 0.1 thou/uL 0.0-0.2
--- OUTSIDE RECORDS SUMMARY | 2019-08-11 17:34 | XMS REPORT ---
:1960 Author Organization [employer] Care Team Providers Name Role Phone Slade, Na Provider Role Unavailable Allergies, Adverse Reactions, Alerts Substance Reaction Event Type N.K.D.A. Info Not Available Non Drug Allergy Problems Problem Type Condition Code Onset Dates Condition Statu s Assessment Acute bronchitis, unspecified J20.9 Active organism Problem Anxiety F41.9 Active Problem Chronic pancreatitis, unspecified K86.1 Active pancreatitis type Problem 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 Active Problem Primary insomnia F51.01 Active Problem Osteoarthritis involving multiple M15.9 Active joints on both sides of body Problem Essential hypertension I10 Activ e Problem Grieving F43.21 Active Problem Gastroesophageal reflux disease K21.9 Active without esophagitis Assessment Acute allergic rhinitis J30.9 Acti ve Assessment Sore throat J02.9 Active Assessment Wheezing on auscultation R06.2 Act kourtney Assessment Anxiety F41.9 Active Assessment Cough productive of yellow sputum R05 Active Assessment 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 Active Assessment Essential hypertension I10 Activ e Medications Medication Code Code Instructions Start End Status Dosage System Date Date Lexapro [facility] 02584044312 20 MG Orally Active 1 table t Once a day Seroquel XR [facility] 14060747214 300 MG Orally Active 1 tablet Once a day in the evening Phenergan [facility] [address]-40 25mg Po Q 12 Active one tablet hours Doxycycline [facility] 31498575840 100 MG Orally Active 1 capsule Hyclate twice a day Azithromycin ND 31372505590 250 MG Orally Active 2 tablets Once a day on the first day, then 1 tablet daily for 4 days Losartan ND 77316277021 100 MG Orally Active 1 tab let Potassium Once a day Robaxin-750 [facility] 20545436902 750 MG Orally Active 1 tablet every 4 hrs Flonase [facility] 14224836316 50 MCG/ACT Active 2 spray i n Nasally Once a each day nostril Diazepam ND 84196755148 5 MG Orally Active 1 table t Once a day prn as needed panic attacks Cheratussin AC [facility] 81530209713 100-10 MG/5ML Mar 02, Mar 12, Active 5 ml Orally every 6 2018 2019 hours prn cough PredniSONE [facility] 00180328738 10 MG Orally Active 2 ta blet Once a day daily x 5 days then one tablet daily x 5 days Gabapentin [facility] [id number] 300 MG Orally Active 1 c apsule Once a day Results No Known Results Summary Purpose eClinicalWorks Submission
--- OUTSIDE RECORDS SUMMARY | 2019-08-11 17:34 | XMS REPORT ---
:1960 Author Organization e[employer] Care Team Providers Name Role Phone Slade, Na Provider Role Unavailable Allergies No Known Allergies Problems Problem Type Condition Code Onset Dates Condition Statu s Assessment Essential hypertension I10 Activ e Problem Anxiety F41.9 Active Problem Chronic pancreatitis, [...] End Date Status Dosage System Date Losartan [facility] [id number] 100 MG Orally Active 1 tab let Potassium Once a day Results No Known Results Summary Purpose eClinicalWorks Submission
--- OUTSIDE RECORDS SUMMARY | 2019-08-11 17:36 | XMS REPORT ---
:1960 Author Organization e[employer]Works Care Team Providers Name Role Phone Slade, Na Provider Role Unavailable Allergies, Adverse Reactions, Alerts Substance Reaction Event Type N.K.D.A. Info Not Available Non Drug Allergy Problems Problem Type Condition Code Onset Dates Condition Statu s Problem Osteoarthritis involving multiple M15.9 Active joints on both sides of body Problem 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 Active Problem Grieving F43.21 Active Problem Iron deficiency anemia, unspecified D50.9 Active iron deficiency anemia type Assessment Elevated liver enzymes R74.8 Activ e Problem Chronic pancreatitis, unspecified K86.1 Active pancreatitis type Assessment Iron deficiency anemia, unspecified D50.9 Active iron deficiency anemia type Assessment Anemia, unspecified type D64.9 Act kourtney Problem Seasonal allergies J30.2 Active Problem Essential hypertension I10 Activ e Problem Anxiety F41.9 Active Problem Primary insomnia F51.01 Active Problem Gastroesophageal reflux disease K21.9 Active without esophagitis Assessment Gastroesophageal reflux disease K21.9 Active without esophagitis Assessment 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 Active Assessment Anxiety F41.9 Active Assessment Primary insomnia F51.01 Active Assessment Chronic pancreatitis, unspecified K86.1 Active pancreatitis type Assessment Seasonal allergies J30.2 Active Assessment Osteoarthritis involving multiple M15.9 Active joints on both sides of body Assessment Essential hypertension I10 Activ e Assessment Screening for malignant neoplasm of Z12.39 Active breast Medications Medication Code Code Instructions Start End Status Dosage System Date Date Lexapro [facility] 96062749377 20 MG Orally Active 1 table t Once a day Seroquel XR ND 44314498461 300 MG Orally Active 1 tablet Once a day in the evening Diazepam ND 33600261152 5 MG Orally Active 1 table t Once a day prn as needed panic attacks Flonase [facility] 19520599129 50 MCG/ACT Active 2 spray i n Nasally Once a each day nostril Losartan ND 57093733271 100 MG Orally Active 1 tab let Potassium Once a day Doxycycline ND 53762933308 100 MG Orally Active 1 capsule Hyclate twice a day Azithromycin [facility] 56902067434 250 MG Orally Active 2 tablets Once a day on the first day, then 1 tablet daily for 4 days PredniSONE [facility] 10325941570 10 MG Orally Active 2 ta blet Once a day daily x 5 days then one tablet daily x 5 days Gabapentin [facility] 35044019704 300 MG Orally Active 1 c apsule Once a day Losartan [facility] 17642393573 100 MG Active TAKE 1 Potassium TABLET BY MOUTH EVERY DAY Robaxin-750 [facility] 81079203140 750 MG Orally Active 1 tablet every 4 hrs Phenergan [facility] [address]-51 25mg Po Q 12 Active one tablet hours Results Name Result Date Reference Range Unit Abnormali ty Flag Iron and TIBC ----Iron Bind.Cap.(TIBC) 378 20190714 250-450 ug/dL ----UIBC 314 62337103 131-425 ug/dL ----Iron 64 53883941 27-159 ug/dL ----Iron Saturation 17 19832356 15-55 % CBC With Differential/Platelet ----MCHC 31.5 05322042 31.5-35.7 g/dL ----MCH 30.3 [id number] 26.6-33.0 pg ----Platelets 274 87217702 150-450 x10E3/uL ----RDW 14.2 [id number] 11.7-15.4 % ----Immature Granulocytes 0 66875779 Not Estab. % ----Immature Grans (Abs) 0.0 [id number] 0.0-0.1 x10E3/uL ----Lymphs 28 84856558 Not Estab. % ----Monocytes 8 [id number] Not Estab. % ----Neutrophils 62 26881821 Not Estab. % ----Neutrophils (Absolute) 4.1 [id number] 1.4-7.0 x10E3/uL ----Hematocrit 37.1 75642867 34.0-46.6 % ----Lymphs (Absolute) 1.8 [id number] 0.7-3.1 x10E3/uL ----MCV 96 26279455 79-97 fL ----Eos 2 [id number] Not Estab. % ----RBC 3.86 54401187 3.77-5.28 x10E6/uL ----Basos 0 [id number] Not Estab. % ----Hemoglobin 11.7 20190714 11.1-15.9 g/dL ----Baso (Absolute) 0.0 [id number] 0.0-0.2 x10E3/uL ----WBC 6.7 [id number] 3.4-10.8 x10E3/uL ----Monocytes(Absolute) 0.5 [id number] 0.1-0.9 x10E3/uL ----Eos (Absolute) 0.1 [id number] 0.0-0.4 x10E3/uL Summary Purpose eClinicalWorks Submission
--- OUTSIDE RECORDS SUMMARY | 2019-08-11 17:36 | XMS REPORT | Summary of Care ---
:1960 Author Organization [facility] - Health Address [address] [place] [id number] Care Team Providers Name Role Phone Guerline Slade Primary Care Provider Reason for Visit Reason Comments Abdominal Pain Auth/Cert Status Reason Specialty Diagnoses / Referred By Referred To Procedures Contact Contact Emergency Medicine [facility] Em ergency Dept [address] [place] [address] [place] [phone] Fax: Encounter Details Date Type Department Care Team Description 06/25/2019 Emergency ADC-Emergency Grisel García, Drug-seek ing behavior (Primary Dx); Department [facility] Generalized abdominal pain; [address] [place] [address] Nausea and vomiting, intractability of v omiting not specified, unspecified vomiting type; [address] Diarrhea, unspecified type; [phone] Pain management contract agreement; [phone] Intractable epigastric abdominal pain; Intractab le cyclical vomiting with nausea; Elevated liver enzymes; Essential hyper tension Allergies Active Allergy Reactions Severity Noted Date Comments Codeine Itching, Rash High 02/11/2013 documented as of this encounter (statuses as of 06/25/2019) Medications Medication Sig Dispensed Refills Start Date [...] 4 mg Take 4 mg by 0 A ctive capsule mouth 2 (two) times daily. 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 No t asked Financial Resource Strain Answer Date Recorded How hard is it for you to pay for the very basics like Somew hat hard 11/15/2018 food, housing, medical care, and heating? Food Insecurity Answer Date Recorded Within the past 12 months, you worried that your food would Never true 11/15/2018 run out before you got money to buy more. Within the past 12 months, the food you bought just didn't N ever true 11/15/2018 last and you didn't have money to get more. Transportation Needs Answer Date Recorded In the past 12 months, has lack of transportation kept you f rom No 11/15/2018 medical appointments or from getting medications? In the past 12 months, has lack of transportation kept you f rom No 11/15/2018 meetings, work, or getting things needed for daily living? Sex Assigned at Date Recorded Not on file Job Start Date Occupation Industry Not on file Not on file Not on file Travel History Travel Start Travel End No recent travel history available. documented as of this encounter Last Filed Vital Signs Vital Sign Reading Time Taken Comments Blood Pressure 149/106 06/25/2019 7:45 PM CDT Pulse 93 06/25/2019 7:53 PM CDT Temperature 37.2 C (98.9 F) 06/25/2019 3:48 PM CDT Respiratory Rate 16 06/25/2019 7:45 PM CDT Oxygen Saturation 94% 06/25/2019 7:53 PM CDT Inhaled Oxygen Concentration - - Weight 88.5 kg (195 lb) 06/25/2019 3:48 PM CDT Height 152.4 cm (5') 06/25/2019 3:48 PM CDT Body Mass Index 38.08 06/25/2019 3:48 PM CDT documented in this encounter Discharge Instructions Grisel Mariscal FNP - 06/25/2019Please return to the ER if you have any increasing abdominal pain, nausea and vomiting unrelieved by medications, inability to tolerate food or fluids, fever, chills, or any other symptom you feel is abnormal. Follow up with your general provider after this ER visit. Please take your already prescribed medications for nausea and vomiting. AttachmentsThe following attachments cannot be sent through Care Everywhere. Abdominal Pain, Adult ([place]an)High Blood Pressure, Controlling ([place]an) Vomiting and Diarrhea,Self-Care for ([place]an)documented in this encounter Plan of Treatment Name Type Priority Associated Diagnoses Date/Ti me URINE CULTURE LAB STAT Generalized abdominal pain 06/25/2019 5:13 PM CDT Name Type Priority Associated Diagnoses Order S chedule URINE CULTURE LAB Routine Generalized abdominal pain ONCE for 1 Occurrences starting 2019 until 06/25/2019 Health Maintenance Due Date Last Done Comments [...] Procedures Procedure Name Priority Date/Time Associated Diagnosis Comme nts CBC WITH DIFFERENTIAL STAT 06/25/2019 5:49 Generalized Re sults for this PM CDT abdominal pain procedure are in the results section. CBC WITH DIFFERENTIAL Routine 06/25/2019 5:49 Generalized Re sults for this PM CDT abdominal pain procedure are in the results section. BASIC METABOLIC PANEL STAT 06/25/2019 5:49 Generalized Re sults for this (NA, K, CL, CO2, PM CDT abdominal pain procedure are in GLUCOSE, BUN, the results CREATININE, CA) section. HEPATIC FUNCTION STAT 06/25/2019 5:49 Generalized Results for this PANEL (29896) PM CDT abdominal pain procedure ar e in (ALB,T.PRO,BILI the results T,BU/BC,ALT,AST,ALK section. PHOS) TROPONIN I STAT 06/25/2019 5:49 Generalized Results for this PM CDT abdominal pain procedure are in the results section. LIPASE STAT 06/25/2019 5:49 Generalized Results for this PM CDT abdominal pain procedure are in the results section. EKG-12 LEAD STAT 06/25/2019 5:33 PM CDT URINALYSIS STAT 06/25/2019 5:13 Generalized Results for this PM CDT abdominal pain procedure are in the results section. documented in this encounter Results CBC WITH DIFFERENTIAL (06/25/2019 5:49 PM CDT) Pathologist Sig nature WBC 3.60 (L) 4.30 - 11.10 [facility] 10*3/L [facility] RBC 3.64 (L) 3.93 - 5.25 [facility] 10*6/L [facility] HGB 11.0 (L) 11.6 - 15.0 [facility] g/dL [facility] HCT 34.1 (L) 35.7 - 45.2 % [facility] MCV 93.7 80.6 - 95.5 fL [facility] MCH 30.2 25.9 - 32.8 pg [facility] MCHC 32.3 31.6 - 35.1 [facility] g/dL [facility] RDW-SD 51.3 (H) 39.0 - 49.9 fL [facility] RDW-CV 14.9 12.0 - 15.5 % [facility] PLT 169 166 - 358 [facility] 10*3/L [facility] MPV 9.3 (L) 9.5 - 12.9 fL [facility] NRBC/100 WBC 0.0 0.0 - 10.0 /100 [facility] WBCs [facility] NRBC x10^3 <0.01 10*3/L [facility] GRAN MAT (NEUT) % 67.4 % [facility] IMM GRAN % 0.60 % [facility] LYMPH % 20.6 % [facility] MONO % 9.4 % [facility] EOS % 1.7 % [facility] BASO % 0.3 % [facility] GRAN MAT x10^3(ANC) 2.43 1.88 - 7.09 [facility] 10*3/uL [facility] IMM GRAN x10^3 <0.03 0.00 - 0.06 [facility] 10*3/uL [facility] LYMPH x10^3 0.74 (L) 1.32 - 3.29 [facility] 10*3/uL [facility] MONO x10^3 0.34 0.33 - 0.92 [facility] 10*3/uL [facility] EOS x10^3 0.06 0.03 - 0.39 [facility] 10*3/uL [facility] BASO x10^3 <0.03 0.01 - 0.07 [facility] 10*3/uL [facility] Specimen Blood - VENOUS Performing Organization Address City/State/Zipcode Phone Number [facility] CLIA: [id number], [address] [place], [place] [address] Hepatic Function Panel (ALB, T.PRO, BILI T, BU/BC, ALT, AST, ALK PHOS) (06/25/2019 5:49 PM CDT) Pathologist Sig nature TOTAL BILI 1.0 0.1 - 1.1 mg/dL [facility] BILI UNCON 0.2 0.1 - 1.1 mg/dL [facility] BILI CONJ 0.0 0.0 - 0.3 mg/dL [facility] T PROTEIN 7.8 6.3 - 8.2 g/dL [facility] ALBUMIN 4.3 3.5 - 5.0 g/dL [facility] ALK PHOS 622 (H) 34 - 122 U/L [facility] ALTv 126 (H) 5 - 35 U/L [facility] AST(SGOT) 180 (H) 13 - 40 U/L [facility] Specimen Blood - VENOUS Performing Organization Address [facility] Phone Number [facility] CLIA: [id number], [address] [place] [address] Troponin I (06/25/2019 5:49 PM CDT) Pathologist Sig nature TROPONIN I 0.005 <=0.034 ng/mL [facility] Specimen Blood - VENOUS Narrative Performed At Equal or Less than 0.034 ng/ml---Normal [facility] Note: Cardiac troponin begins to rise 3-4 hours after the onset of ischemia. Repeat in 4-6 hours if the sample was drawn within 3-4 hours of the onset of the symptom and found normal. Between 0.035 and 0.120 ng/mL--- Borderline. Questionable myocardial injury or necros is Note: Serial measurement may be necessary to confirm or exclude the diagnosis of myocardial injury or necrosis; Clinical correlation (symptoms, EKGs, imaging studies, and others) required; Repeat in 4-6 hours if clinically indicated. Equal or Higher than 0.121 ng/mL---Abnormal. Myocardial Injury or Necrosis Likely Biotin has been reported to cause a negative bias, interpret results relative to patient's use of biotin. Performing Organization Address [facility] Phone Number [facility] CLIA: [id number], [address] [place] [address] Lipase Serum (06/25/2019 5:49 PM CDT) Pathologist Sig [facility] LIPASE 55 0 - 220 U/L [facility] Specimen Blood - VENOUS Performing Organization Address City/State/Zipcode Phone Number [facility] CLIA: [id number], [address] [place], [place] [address] Basic Metabolic Panel (NA, K, CL, CO2, GLUCOSE, BUN, CREATININE, CA) (06/25/2019 5:49 PM CDT) Pathologist Sig [facility] NA 138 135 - 145 mmol/L [facility] K 4.3 3.5 - 5.0 mmol/L [facility] CL 103 98 - 108 mmol/L [facility] CO2 TOTAL 27 23 - 31 mmol/L [facility] AGAP 8 2 - 16 [facility] BUN 16 7 - 23 mg/dL [facility] GLUCOSE 106 70 - 110 mg/dL [facility] CREATININE 0.66 0.50 - 1.04 [facility] mg/dL [facility] CALCIUM 9.1 8.6 - 10.6 mg/dL [facility] eGFR Calculation 92.6 mL/min/1.73m2 [facility] (Non-) [facility] eGFR Calculation 112.3 mL/min/1.73m2 [facility] () [facility] Specimen Blood - VENOUS Narrative Performed At Association of Glomerular Filtration Rate (GFR) [facility] and Staging of Kidney Disease* [...] abnormalities in imaging tests). Performing Organization Address [facility] Phone Number [facility] CLIA: [id number], [address] [place], [place] [address] URINALYSIS (06/25/2019 5:13 PM CDT) Pathologist Sig nature APPEARANCE Clear Clear [facility] COLOR Yellow Yellow [facility] PH 7.5 4.8 - 8.0 [facility] SP GRAVITY 1.020 1.003 - 1.030 [facility] GLU U QUAL Negative Negative [facility] BLOOD Negative Negative [facility] KETONES Negative Negative [facility] PROTEIN Negative Negative [facility] UROBILIN 1.0 mg/dL 0-1.0 mg/dL [facility] BILIRUBIN Small (A) Negative [facility] NITRITE Negative Negative [facility] LEUK NICHOLE Negative Negative [facility] RBC/HPF 0 0 - 3 HPF [facility] WBC/HPF 0 0 - 5 HPF [facility] BACTERIA Negative Negative [facility] Ictotest Negative [facility] Specimen Urine - URINE, CLEAN CATCH Performing Organization Address [facility] Phone Number [facility] CLIA: [id number], [address] [place], [place] [address] documented in this encounter Visit Diagnoses Diagnosis Drug-seeking behavior - Primary Other, mixed, or unspecified nondependen t drug abuse, unspecified Generalized abdominal pain Abdominal pain, generalized Nausea and vomiting, intractability of v omiting not specified, unspecified vomiting type Diarrhea, unspecified type Pain management contract agreement Reserved for inherently not codable conc epts WITHOUT codable children Intractable epigastric abdominal pain Intractable cyclical vomiting with nause a Elevated liver enzymes Nonspecific elevation of levels of trans aminase or lactic acid dehydrogenase (LDH) Essential hypertension Unspecified essential hypertension documented in this encounter Administered Medications Medication Order MAR Action Action Date Dose Rate Site dicyclomine (BENTYL) Given 06/25/2019 5:49 PM 20 mg Right injection 20 mg CDT Dorsogluteal-IM 20 mg, Intramuscular, QID, First dose on Lilian 06/25/19 at 2000, Until Discontinued, [place] Medication Order MAR Action Action Date Dose Rate Site hydralAZINE (APRESOLINE) injection Given 06/25/2019 7:10 PM CDT 20 mg 20 mg 20 mg, Intravenous, ONCE NOW, 1 dose, Lilian 06/25/19 at 1945, [place] HYDROcodone-acetaminophen (NORCO) 10-325 Given 06/25/2019 7 :22 PM CDT 1 tablet mg tablet 1 tablet 1 tablet, Oral, ONCE NOW, 1 dose, Lilian 06/25/19 at 2015, [place] ketorolac (TORADOL) injection 30 mg Given 06/25/2019 5:49 PM CDT 30 mg 30 mg, Slow IV Push, ONCE, 1 dose, Lilian 06/25/19 at 1845, [place], count team member approving Restricted medication: GRISEL GARCÍA:diphenhydrAMINE:lidocaine 2 % viscous Given 03/2020 5:52 PM CDT 15 mL 1:1:1 (FIRST-MOUTHWASH BLM) oral suspension 15 mL 15 mL, Oral, ONCE, 1 dose, Lilian 06/25/19 at 1745, [place] metoclopramide HCl (REGLAN) injection 10 mg Given 06/25/2019 5:48 PM CDT 10 mg 10 mg, Slow IV Push, ONCE, 1 dose, Lilian 06/25/19 at 1845, [place] NaCl 0.9% (NS) bolus infusion New Bag 06/25/2019 5:48 PM CDT 1,000 mL 999 mL/hr 1,000 mL at 999 mL/hr, 1,000 mL, IV Infusion, ONCE, 1 dose, Lilian 06/25/19 at 1745, [place] documented in this encounter Insurance Payer Benefit Plan / Subscriber ID Effective Phone Address T e Group Dates MEDICARE MEDICARE PART xxxxxxxxxxx 2015-[place] [phone] [address] Medicare A & B nt [id number] [place] [id number] CIGNA CIGNA II [id number] 2018-Prese HMO /PPO/POS nt documented as of this encounter Advance Directives Name Relationship Healthcare Agent Communication Relationship Puneet Aleman Spouse Primary healthcare agent [email or web address]"
[2019-08-11] MEDS ORDERED: MORPHINE 4 MG/ML SYR ONE ×2 (18:17→19:34)
[2019-08-11] MEDS ORDERED: ONDANSETRON 4 MG/2 ML VIAL ONE (18:17)
[2019-08-11] MEDS ORDERED: NA CHLORIDE 0.9% 1,000 ML ONE (18:17)
[2019-08-11 18:28] LABS: Absolute Lymphocytes (CBC) 0.6 K/uL (0.7-4.9); Basophils % 0.5 % (0-1.3); Lymphocytes % 8.6 % (15.3-44.8); MPV 7.7 fL (7.6-11.3)
[2019-08-11 18:53] LABS: Albumin 3.5 g/dL (3.4-5.0); Bilirubin Direct 0.9 mg/dL (0-0.2); Bilirubin Total 1.2 mg/dL (0.2-1.0); Potassium 4.3 mmol/L (3.5-5.1); Protein, Total 8.6 g/dL (6.4-8.2)
--- NOTE | 2019-08-11 19:46 | RAD REPORT ---
EXAM DESCRIPTION: CT - Abdomen Pelvis W Contrast - 08/11/2019 7:17 pm CLINICAL HISTORY: Abdominal pain COMPARISON: none. TECHNIQUE: Computed axial tomography of the abdomen pelvis was obtained. 100 cc Isovue-300 was admin istered intravenously. Oral contrast was not requested which limits evaluation of bowel. All CT scans are performed using dose optimization technique as appropriate and may include automated exposure control or mA/KV adjustment according to patient size. FINDINGS: A cirrhotic liver. Pneumobilia unchanged 1 Spleen measures 14 millimeters. Pancreas, adrenal and left kidney unremarkable. Mild right renal cortical thinning perhaps secondary prior inflammation. There is no evidence of diverticulitis. Cholecystectomy. Small umbilical hernia IMPRESSION: No acute abnormality is displayed.
--- NOTE | 2019-08-11 20:05 | ER ---
Nurse's Notes [facility] Name: Yessenia Aleman Age: 58 yrs Sex: Female : 1960 Arrival Date: 08/11/2019 Time: 17:29 Bed 7 Private MD: Jeannie Slade Diagnosis: Unspecified abdominal pain;Vomiting Presentation: 08/10 18:04 Chief complaint: Patient states: Epigastric pain radiates around to mid-back with N/D x jl7 5 days, denies fever. Coronavirus screen: Proceed with normal triage. Patient denies a cough. Patient denies shortness of breath or difficulty breathing. Patient denies measured and/or subjective temperature greater than 100.4F prior to today's visit. Patient denies travel on a cruise ship or to a country the [facility] currently lists as an affected area. Patient denies contact with known and/or suspected case of COVID-19. Ebola Screen: No symptoms or risks identified at this time. Initial Sepsis Screen: Does the patient meet any 2 criteria? No. Patient's initial sepsis screen is negative. Does the patient have a suspected source of infection? No. Patient's initial sepsis screen is negative. Risk Assessment: Do you want to hurt yourself or someone else? Patient reports no desire to harm self or others. Onset of symptoms was August 06, 2019. Care prior to arrival: None. 18:04 Method Of Arrival: Wheelchair jl7 18:04 Acuity: HOLLI 3 jl7 Triage Assessment: 18:04 General: Appears in no apparent distress. uncomfortable, Behavior is cooperative, jl7 anxious. Pain: Complains of pain in epigastric area Pain radiates to mid back area Pain currently is 8 out of 10 on a pain scale. Quality of pain is described as sharp, Pain began x 5 days Is intermittent. Neuro: Level of Consciousness is awake, alert, obeys commands, Oriented to person, place, time, situation. Cardiovascular: Patient's skin is warm and dry. Respiratory: Airway is patent Respiratory effort is even, unlabored, Respiratory pattern is regular, symmetrical. GI: Abdomen is round non-distended, Reports diarrhea, nausea. Derm: Skin is pink, warm \T\ dry. Historical: - Allergies: 17:59 Codeine; jl7 - Home Meds: 17:59 gabapentin 300 mg Oral cap 1 cap daily [Active]; Lexapro 20 mg Oral tab 1 tab [Active]; jl7 losartan 100 mg Oral tab 1 tab once daily [Active]; [place] 10-325 mg Oral tab 1 tab twice a day [Active]; Seroquel 300 mg Oral tab 1 tab once daily [Active]; Xanax 1 mg Oral tab 1 tab 3 times per day for Anxiety [Active]; - PMHx: 17:59 Anxiety; biliary chirrosis; biliary disease; Arthritis; CHF; Chronic Pancreatitis; jl7 Hypertension; Pancreatitis; Pneumonia; - PSHx: 17:59 Cholecystectomy; Appendectomy; Tubal ligation; blie duct stenting x 5; jl7 - Immunization history:: Adult Immunizations up to date. - Social history:: Smoking status: Patient denies any tobacco usage or history of. Screenin:02 Abuse screen: Denies threats or abuse. Denies injuries from another. Nutritional sv screening: No deficits noted. Tuberculosis screening: No symptoms or risk factors identified. Fall Risk None identified. Assessment: 18:20 Reassessment: Patient appears in no apparent distress at this time. No changes from sv previously documented assessment. Patient and/or family updated on plan of care and expected duration. Pain level reassessed. Patient is alert, oriented x 3, equal unlabored respirations, skin warm/dry/pink. 19:30 General: Appears in no apparent distress. uncomfortable, Behavior is calm, cooperative, rr5 appropriate for age, back from CT scan, complaining of abdominal pain. ED provider aware with order made and carried out.. Pain: Complains of pain in right upper quadrant and left upper quadrant Pain radiates to right lower quadrant and left lower quadrant Pain currently is 8 out of 10 on a pain scale. Quality of pain is described as aching, Pain began gradually, Is intermittent. Neuro: Level of Consciousness is awake, alert, obeys commands, Oriented to person, place, time, situation, Appropriate for age. Cardiovascular: Capillary refill < 3 seconds Patient's skin is warm and dry. Respiratory: Airway is patent Respiratory effort is even, unlabored, Respiratory pattern is regular, symmetrical. GI: Abdomen is round non-distended, Bowel sounds present X 4 quads. Abd is soft and non tender X 4 quads. Reports lower abdominal pain, upper abdominal pain. : No signs and/or symptoms were reported regarding the genitourinary system. EENT: No signs and/or symptoms were reported regarding the EENT system. Derm: Skin is intact, is healthy with good turgor, Skin temperature is warm. Musculoskeletal: Circulation, motion, and sensation intact. Capillary refill < 3 seconds. Vital Signs: 18:04 BP 174 / 112; Pulse 88; Resp 19 S; Temp 99.4(O); Pulse Ox 96% on R/A; Pain 8/10; jl7 18:26 BP 155 / 109; Pulse 78; Resp 19 S; Pulse Ox 96% on R/A; jl7 18:53 BP 116 / 87; Pulse 76; Resp 16; Pulse Ox 96% ; sv 18:54 Pain 3/10; sv 19:32 BP 115 / 75; Pulse 70; Resp 17; Temp 99; Pulse Ox 99% ; Pain 8/10; rr5 ED Course: 17:29 Patient arrived in ED. mr 17:29 Jeannie Slade MD is Private Physician. mr 17:57 Joo Samano RN is Primary Nurse. jl7 18:00 Mitch Wilburn NP is PHCP. pm1 18:00 Meek Fitzpatrick MD is Attending Physician. pm1 18:02 Arm band placed on Patient placed in an exam room, on a stretcher, on pulse oximetry. sv 18:02 Patient has correct armband on for positive identification. Placed in gown. Bed in low sv position. Call light in reach. Pulse ox on. NIBP on. Door closed. Head of bed elevated. 18:03 Nurse Practitioner and/or Physician Vfx Artist to see patient. sv 18:06 Triage completed. jl7 18:15 Inserted saline lock: 22 gauge in right forearm, using aseptic technique. ,using sv aseptic technique. diffusics Blood collected. Flushed right forearm with 5 ml normal saline. 18:[address] Scan. sv 19:03 Report given to Kalpesh KAN and Alli KAN. sv 19:17 CT Abd/Pelvis - IV Contrast Only In Process Unspecified. EDMS 20:04 Elijah Neumann MD is Referral Physician. pm1 20:13 No provider procedures requiring assistance completed. IV discontinued, intact, mg2 bleeding controlled, No redness/swelling at site. Pressure dressing applied. Administered Medications: 18:20 Drug: Zofran (Ondansetron) 4 mg Route: IVP; Site: right forearm; sv 18:54 Follow up: Response: No adverse reaction; Marked relief of symptoms; Nausea is decreasedsv 18:20 Drug: NS 0.9% 1000 ml Route: IV; Rate: 1000 ml; Site: right forearm; sv 18:22 Drug: morphine 4 mg {Note: rass2.} Route: IVP; Site: right forearm; sv 18:54 Follow up: Pain 3/10 Adult; Response: No adverse reaction; Pain is decreased; RASS: sv Drowsy (-1) 19:30 Drug: morphine 4 mg {Note: rass 0.} Route: IVP; Site: right forearm; rr5 20:10 Follow up: Response: No adverse reaction mg2 Outcome: 20:04 Discharge ordered by . pm1 20:13 Discharged to home ambulatory. mg2 20:13 Condition: stable 20:13 Discharge instructions given to patient, Instructed on discharge instructions, follow up and referral plans. medication usage, Demonstrated understanding of instructions, follow-up care, medications, Prescriptions given X 2. 20:13 Patient left the ED. mg2 Signatures: Dispatcher [employer] EDMS Barbie Colindres RN Sheryl Gambino mr CosmoMitch, ROBOT DESIGNER ROBOT DESIGNER pm1 Joo Samano RN RN jl7 Kalpesh Farmer RN RN mg2 Alli Givens RN RN rr5
--- NOTE | 2019-08-11 20:05 | EDPHYS ---
Physician Documentation [facility] Name: Yessenia Aleman Age: 58 yrs Sex: Female : 1960 Arrival Date: 08/11/2019 Time: 17:29 Bed 7 Private MD: Jeannie Slade ED Physician Meek Fitzpatrick HPI: 08/10 18:05 This 58 yrs old Female presents to ER via Wheelchair with complaints of pm1 Abdominal Pain, Back Pain, Vomiting, Headache. 18:05 The patient presents with abdominal pain in the epigastric area. Onset: The pm1 symptoms/episode began/occurred 5 day(s) ago. Associated signs and symptoms: Pertinent positives: nausea, vomiting, and diarrhea, vomit x 2 and diarrhea x 1 onset today, Pertinent negatives: chest pain, constipation, dysuria, fever, shortness of breath. The symptoms are described as achy. Modifying factors: The symptoms are alleviated by nothing, the symptoms are aggravated by food. Severity of pain: in the emergency department the pain is actually worse. The patient has experienced similar episodes in the past, multiple times. Historical: - Allergies: 17:59 Codeine; jl7 - Home Meds: 17:59 gabapentin 300 mg Oral cap 1 cap daily [Active]; Lexapro 20 mg Oral tab 1 tab [Active]; jl7 losartan 100 mg Oral tab 1 tab once daily [Active]; [place] 10-325 mg Oral tab 1 tab twice a day [Active]; Seroquel 300 mg Oral tab 1 tab once daily [Active]; Xanax 1 mg Oral tab 1 tab 3 times per day for Anxiety [Active]; - PMHx: 17:59 Anxiety; biliary chirrosis; biliary disease; Arthritis; CHF; Chronic Pancreatitis; jl7 Hypertension; Pancreatitis; Pneumonia; - PSHx: 17:59 Cholecystectomy; Appendectomy; Tubal ligation; blie duct stenting x 5; jl7 - Immunization history:: Adult Immunizations up to date. - Social history:: Smoking status: Patient denies any tobacco usage or history of. ROS: 18:05 Constitutional: Negative for fever, chills, and weight loss, Neck: Negative for injury, pm1 pain, and swelling, Cardiovascular: Negative for chest pain, palpitations, and edema, Respiratory: Negative for shortness of breath, cough, wheezing, and pleuritic chest pain. 18:05 Back: Negative for injury and pain, : Negative for injury, bleeding, discharge, and swelling, MS/Extremity: Negative for injury and deformity, Skin: Negative for injury, rash, and discoloration, Neuro: Negative for headache, weakness, numbness, tingling, and seizure. 18:05 Abdomen/GI: Positive for abdominal pain, nausea, vomiting, and diarrhea, Negative for constipation, hematemesis, black/tarry stool, rectal pain, rectal bleeding. Exam: 18:05 Constitutional: This is a well developed, well nourished patient who is awake, alert, pm1 and in no acute distress. Head/Face: Normocephalic, atraumatic. Neck: Trachea midline, no thyromegaly or masses palpated, and no cervical lymphadenopathy. Supple, full range of motion without nuchal rigidity, or vertebral point tenderness. No Meningismus. Chest/axilla: Normal chest wall appearance and motion. Nontender with no deformity. No lesions are appreciated. Respiratory: Lungs have equal breath sounds bilaterally, clear to auscultation and percussion. No rales, rhonchi or wheezes noted. No increased work of breathing, no retractions or nasal flaring. 18:05 Back: No spinal tenderness. No costovertebral tenderness. Full range of motion. Skin: Warm, dry with normal turgor. Normal color with no rashes, no lesions, and no evidence of cellulitis. MS/ Extremity: Pulses equal, no cyanosis. Neurovascular intact. Full, normal range of motion. 18:05 Cardiovascular: Exam negative for acute changes, Rate: normal, Rhythm: regular, Pulses: no pulse deficits are appreciated. 18:05 Abdomen/GI: Exam negative for acute changes, Inspection: abdomen appears normal, Bowel sounds: normal, in all quadrants, Palpation: abdomen is soft and non-tender, mass, is not appreciated, rebound tenderness, is not appreciated. 18:05 Neuro: Exam negative for acute changes, Orientation: is normal, Mentation: is normal, Motor: is normal, Sensation: is normal, no obvious gross deficits. Vital Signs: 18:04 BP 174 / 112; Pulse 88; Resp 19 S; Temp 99.4(O); Pulse Ox 96% on R/A; Pain 8/10; jl7 18:26 BP 155 / 109; Pulse 78; Resp 19 S; Pulse Ox 96% on R/A; jl7 18:53 BP 116 / 87; Pulse 76; Resp 16; Pulse Ox 96% ; sv 18:54 Pain 3/10; sv 19:32 BP 115 / 75; Pulse 70; Resp 17; Temp 99; Pulse Ox 99% ; Pain 8/10; rr5 MDM: 18:00 Patient medically screened. pm1 20:03 Data reviewed: vital signs. Data interpreted: Pulse oximetry: on room air is 99 %. pm1 Interpretation: normal. Counseling: I had a detailed discussion with the patient and/or guardian regarding: the historical points, exam findings, and any diagnostic results supporting the discharge/admit diagnosis, lab results, radiology results, the need for outpatient follow up, for definitive care, a director check, to return to the emergency department if symptoms worsen or persist or if there are any questions or concerns that arise at home. 08/10 18:05 Order name: Basic Metabolic Panel; Complete Time: 18:58 pm1 08/10 18:05 Order name: CBC with Diff; Complete Time: 18:47 pm1 08/10 18:05 Order name: Creatinine for Radiology; Complete Time: 18:47 pm1 08/10 18:05 Order name: Hepatic Function; Complete Time: 18:58 pm1 08/10 18:05 Order name: Lipase; Complete Time: 18:58 pm1 08/10 18:06 Order name: CT Abd/Pelvis - IV Contrast Only; Complete Time: 20:00 pm1 08/10 18:05 Order name: IV Saline Lock; Complete Time: 18:26 pm1 08/10 18:05 Order name: Labs collected and sent; Complete Time: 18:26 pm1 Administered Medications: 18:20 Drug: Zofran (Ondansetron) 4 mg Route: IVP; Site: right forearm; sv 18:54 Follow up: Response: No adverse reaction; Marked relief of symptoms; Nausea is decreasedsv 18:20 Drug: NS 0.9% 1000 ml Route: IV; Rate: 1000 ml; Site: right forearm; sv 18:22 Drug: morphine 4 mg {Note: rass2.} Route: IVP; Site: right forearm; sv 18:54 Follow up: Pain 3/10 Adult; Response: No adverse reaction; Pain is decreased; RASS: sv Drowsy (-1) 19:30 Drug: morphine 4 mg {Note: rass 0.} Route: IVP; Site: right forearm; rr5 20:10 Follow up: Response: No adverse reaction mg2 Disposition: 08/11/19 20:04 Discharged to Home. Impression: Unspecified abdominal pain, Vomiting. - Condition is Stable. - Discharge Instructions: Abdominal Pain, Adult, Nausea and Vomiting, Adult. - Prescriptions for Bentyl 20 mg Oral Tablet - take 1 tablet by ORAL route every 6 hours As needed; 20 tablet. Zofran 4 mg Oral Tablet - take 1 tablet by ORAL route every 12 hours As needed; 20 tablet. - Medication Reconciliation Form, Thank You Letter, Antibiotic Education, Prescription Opioid Use form. - Follow up: Emergency Department; When: As needed; Reason: Worsening of condition. Follow up: Elijah Neumann MD; When: 2 - 3 days; Reason: Recheck today's complaints, Continuance of care, Re-evaluation by your physician. - Problem is new. - Symptoms have improved. Addendum: 08/15/2019 07:52 Co-signature as Attending Physician, Meek Fitzpatrick MD. r n Signatures: Dispatcher [employer] EDBarbie Navarrete RN RN sv Meek Fitzpatrick MD MD rn Mitch Wilburn, RAFAEL FISHER WEIR pm1 Joo Samano RN RN jl7 Kalpesh Farmer, LUCIUS RN mg2 Alli Givens, RN RN rr5 Corrections: (The following items were deleted from the chart) 08/10 20:05 20:04 08/11/2019 20:04 Discharged to Home. Impression: Unspecified abdominal pain. pm1 Condition is Stable. Forms are Medication Reconciliation Form, Thank You Letter, Antibiotic Education, Prescription Opioid Use. Follow up: Emergency Department; When: As needed; Reason: Worsening of condition. Follow up: Elijah Neumann; When: 2 - 3 days; Reason: Recheck today's complaints, Continuance of care, Re-evaluation by your physician. Problem is new. Symptoms have improved. pm1 20:13 20:05 08/11/2019 20:04 Discharged to Home. Impression: Unspecified abdominal pain; mg2 Vomiting. Condition is Stable. Discharge Instructions: Abdominal Pain, Adult, Nausea and Vomiting, Adult. Forms are Medication Reconciliation Form, Thank You Letter, Antibiotic Education, Prescription Opioid Use. Follow up: Emergency Department; When: As needed; Reason: Worsening of condition. Follow up: Elijah Neumann; When: 2 - 3 days; Reason: Recheck today's complaints, Continuance of care, Re-evaluation by your physician. Problem is new. Symptoms have improved. pm1
[2019-08-11 20:51] VITALS: BP 115/75; TEMP 99; O2SAT 99
== END 2019-08-11 20:13 | disposition home or self-care (01) ==
LOC: ER 17:26
DX: R11.10 Vomiting, unspecified (principal); I10 Essential (primary) hypertension; F41.9 Anxiety disorder, unspecified; I50.9 Heart failure, unspecified
CPT/HCPCS: 85025; 80048; 36415; 80076; 83690; 74177; 96375; 96374; 99284; Q9967; J7030; J2405

== ENCOUNTER 2019-09-14 19:18 | Emergency (ER) | payer OTHER ==
--- OUTSIDE RECORDS SUMMARY | 2019-09-14 19:50 | XMS REPORT | Continuity of Care Document ---
:1960 Author Organization [facility] t Address [address] [place] [address] [place] [address] Care Team Providers Name Role Phone Maxine Grayson MD Attending Clinician Asaf PERRIN Attending Clinician Won Fisher MD Attending Clinician Doctor Unassigned, Name Attending Clinician Unavailable Singer CANALES Attending Clinician Obdulia Vasquez MD Attending Clinician DANIEL Mai Attending Clinician Unavailable Haley Cox Attending Clinician Unavailable PROVIDER, TEMP Attending Clinician Unavailable RADU Attending Clinician Unavailable To Attending Clinician Unavailable KRIS Attending Clinician Unavailable Bia CASTILLO Attending Clinician Unavailable Haley Cox Admitting Clinician Unavailable Problems Condition Condition Condition Status Onset Resolution Last Treating Co mments Source Name Details Category Date Date Treatment Clinician Date Anxiety An[facility] Gastroesop Gastroesop Diagnosis Active [facility] hageal hageal [facility] - reflux reflux Memoria disease disease l without without Outpati esophagiti esophagiti en t s s Clinics Essential Essential Diagnosis Active [facility] hypertensi hypertensi Shari kes - on on [facility] Grieving Grieving Problem [facility] Osteoarthr Osteoarthr Diagnosis Active [facility] itis itis [facility] - involving involving Germain shawn multiple multiple l joints on joints on Outp ati both sides both sides en t of body of body Clinics 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[facility] severe severe [facility] - depression depression Me moria l [facility] ent Clinics Chronic Chronic Diagnosis Active [facility] pancreatit pancreatit Shari kes - is, is, Memoria unspecifie unspecifie l d d [facility] pancreatit pancreatit en t is type is type Clinics Primary Primary Diagnosis Active [facility] insomnia kes - [facility] ent [facility] Iron Iron Diagnosis Active [facility] deficiency deficiency Shari kes - anemia, anemia, Memoria unspecifie unspecifie l d iron d iron [facility] deficiency deficiency en t anemia anemia Clinics type type Elevated Elevated Diagnosis Active [facility] liver liver [facility] - enzymes enzymes [facility] Anemia, Anemia, Diagnosis Active [facility] unspecifie unspecifie Shari kes - d type d type [facility] ent [facility] Seasonal Seasonal Diagnosis Active [facility] allergies allergies [facility] ent Clinics Screening Screening Diagnosis Active [facility] for for [facility] - malignant malignant Germain shawn neoplasm neoplasm l of breast of breast Outp at ent Clinics Allergies, Adverse Reactions, Alerts This patient has no known allergies or adverse reactions. Medications Ordered Filled Start Stop Current Ordering Indication Dosage Frequency Signature Comments Components Source Medication Medication Date Date Medication? Clinician (SIG) Name Name Losartan Losartan Yes Na Slade [address] [facility] [address] Potassium Potassium kes - [facility] ent [facility] Lexapro Lexapro Yes Na Slade [address] [facility] Seroquel XR Seroquel XR Yes Na Slade [address] [facility] in the [facility] - evening Memoria l [facility] ent Clinics Phenergan Phenergan Yes Na Slade one tablet [facility] Doxycycline Doxycycline Yes Na Slade [address] Hyclate Hyclate kes - Memoria l [facility] ent Clinics Azithromyci Azithromyci Yes Na Slade [address] [facility] n n on the [facility] - first day, Memoria then 1 l tablet Outpati daily for ent 4 days Clinics Robaxin-750 Robaxin-750 Yes Na Slade [address] [facility] Flonase Flonase Yes Na Slade [address] [facility] each [facility] - nostril [facility] ent Clinics Diazepam Diazepam Yes Na Slade [address] [facility] as needed [facility] PredniSONE PredniSONE Yes Na Slade [address] daily x 5 [facility] - days then Memoria one tablet l daily x 5 Outpati days ent Clinics Gabapentin Gabapentin Yes Na Slade [address] [facility] Losartan Losartan Yes Na Slade TAKE [address] Potassium Potassium TABLET BY [facility] - MOUTH Memoria EVERY DAY l [facility] Procedures This patient has no known procedures. Encounters Start End Encounter Admission Attending Care Care Encounter Source Date/Time Date/Time Type Type Clinicians Facility Department ID 2019-08-21 2019-08-21 Emergency [facility] [id number] 19:42:19 23:51:00 Gabriele Guidry [id number] [place] 4.2.7.2.686 [place] [id number] 2019-07-14 2019-07-14 [facility] [id number] [address] 15:00:00 15:00:00 [facility] 2019-06-25 2019-06-25 Emergency [place] [id number] 16:52:11 20:04:00 Grisel Guidry [id number] [place] 4.2.7.2.686 [place] [id number] 2019-06-19 2019-06-19 Emergency [facility] [id number] 13:58:11 19:09:00 Skyler Guidry [id number] [place] 4.2.7.2.686 [place] [id number] 2019-06-19 2019-06-19 Orders Doctor HAMMER [id number] 00:00:00 00:00:00 Only Unassigned, KATHIE 350.1.13.10 [place] [id number] 2019-05-19 2019-05-19 Emergency [facility] [id number] 18:29:04 21:26:00 Gary Guidry [id number] [place] [id number] [place] [id number] 2019-03-02 2019-03-02 [facility] [id number] 10:40:00 10:40:00 [place] [employer] [facility] 2019-02-04 2019-02-04 [facility] [id number] 10:55:00 10:55:00 [place] [employer] [address] [facility] 2018-12-24 2018-12-24 [facility] [id number] 00:00:00 00:00:00 [facility] [id number] [facility] 4[facility]2.7.2.686 [facility] [id number] Obdulia Guidry 2018-10-07 2018-10-07 [facility] [id number] 11:00:00 11:00:00 [place] [employer] ke s [facility] Clin[facility] 2018-07-28 2018-07-28 [facility] [id number] 09:57:00 09:57:00 [place] [facility] Doctor [facility] 2018-07-25 2018-07-25 [facility] [id number] 14:40:00 14:40:00 [place] Modern Family Doctor [employer] [facility] Results Test Description Test Time Test Comments Results Result Comments Source Culture, Urine 2017-08-07 15:57:00 Test Item Value Reference Range Interpretation Comme nts Culture, Urine (test code = URC) NF Culture, Urine (test code = URC1) 10 NSF * This is a n EDITED result. * A prior result th at was reported as final has been change d. [id number] 22:53:00 Test Item Value Reference Range Interpretation Comments Urinalysis (test LISA Yellow code = UACLR) Urinalysis (test CLOUDY Clear code = UACLY) Urinalysis (test 1.030 1.002-1.036 N code = SPGR) Urinalysis (test 5.5 5.0-9.0 N code = CELSO) Urinalysis (test Trace Negative A code = UALEU) Urinalysis (test Negative Negative code = UANIT) Urinalysis (test Trace mg/dL Neg-Trace code = PROUADIP) Urinalysis (test Negative mg/dL Negative code = GLUCU) Urinalysis (test Negative mg/dL Negative code = KETU) Urinalysis (test 1.0 mg/dL 0.2-1.0 code = UAUROB) Urinalysis (test Small Negative A code = UABIL) CAUTION *Urine Bilirubin has a high incidence of fa lse positiveresults due to urine color interferance.In terpret results in conj unction with other clinicalfinding s. Urinalysis (test Negative Negative code = UABLD) Urinalysis (test 0-3 HPF 0-3 code = UARBC) Urinalysis (test 7-10 HPF 0-3 A code = UAWBC) Urinalysis (test 7-10 HPF 0-3 A code = UASQUAM) Urinalysis (test Rare-Few HPF None Seen code = UABAC) Urinalysis (test 7-10 HYALINE 0-3 Hyaline A code = UACAST) CAST LPF Urine Source: Urine [id number] SURGICAL PATHOLOGY, LEVEL [id number] 14:31:[address] [address] Laboratory Printed: 07/09/[address] [place] [address] DAEMPathology Page: 1 Patient: ZEKE ROMERO Birthdate: 1960 Age/Sex: 56/F Spec#: [id number]: HERMES SALAZAR Specimen Date: 07/08/17 [...] neutrophils. Pathologist:Kelvin Conway Entered by:07/09/17 - 1429 DEMOND PROCEDURES: [id number] Patient: ZEKE ROMERO Re07/03/17Loc: T4-A MR#: [id number] CONTINUED ON NEXT PAGE Dis: 07/09/17ta: DIS IN - [address] [address] Laboratory Printed: 07/09/[address] [place] [address] [facility] 2 Patient: ZEKE ROMERO [id number] (Continued) GROSS DESCRIPTION A. LIVER BIOPSY LEFT [...] by: DANII SHAHID Entered by:07/08/17 - 1316 LAB.KWAME MICROSCOPIC DESCRIPTION A microscopic examination was performed to arrive at the diagnostic conclusion reported. Signed ___ ____(Electronically Signed) Kelvin 07/09/17 Patient: ZEKE ROMERO Re07/03/17Loc: T4-A MR#: [id number] END OF REPORT Dis: 07/09/17ta: DIS [id number] 05:13:00 Test Item Value Reference Range Interpretation Comments Chemistry (test code 138 mmol/L 136-145 N = NA-T) Chemistry (test code 3.7 mmol/L 3.5-5.1 N = K-T) Chemistry (test code 104 mmol/L 98-107 N = CL) Chemistry (test code 28 mmol/L 22-29 N = CO2) Chemistry (test code 10 mmol/L 10-20 N = ANGP) Chemistry (test code 5 mg/dL 9.8-20.1 L = BUN) Chemistry (test code 0.73 mg/dL 0.6-1.1 N = CREATT) Chemistry (test code 83 Referen ce Range for = EGFRMDRD) Estimated GFR: Great er than 90 mL/min/1.73 m2NOTE:The MDRD equation has no t been validated for u se with theelderly (ove r 70 years of age), women, patientswith se rious comorbid condit ion or persons with ex tremes ofbody size, mu scle mass, or nutrit ional status. Chemistry (test code 101 mg/dL 70-105 N = GLU-T) Chemistry (test code 8.9 mg/dL 7.8-10.44 N = CA) Chemistry (test code 0.7 mg/dL 0.2-1.2 N = TBILI) Chemistry (test code 6.6 g/dL 6.0-8.3 N = TP) Chemistry (test code 3.7 g/dL 3.5-5.0 N = ALB) Chemistry (test code 2.9 g/dL 2.4-3.5 N = GLOB) Chemistry (test code 1.3 g/dL 1.2-2.2 N = AG) Chemistry (test code 626 U/L 40-150 H = ALP) Chemistry (test code 49 U/L 5-34 H = AST) Chemistry (test code 75 U/L 8-55 H = ALT) Reference Lab [id number] 04:14:00 Test Item Value Reference Range Interpretation Comments Reference Lab 10 U/mL 0-35 Laurent ECLIA Testing (test code methodolo gyPerformed at: HD = CA199) - [facility] [facility] FacilityBill jin [place], [place] [id number] Di aimee: Chico Suero MD, Phone : [phone] Reference Lab [id number] 16:14:00 Test Item Value Reference Range Interpretation Comments Reference Lab Testing 128.5 Units 0.0-20.0 H (test code = MARLON) Negative 0.0 - 20.0 Equivocal 20.1 - 24.9 Positive >24.9Mitochondr ial (M2) Antibodies are found in 90-96% ofpatients with primary biliary cirrhosis.Perfo rmed at: - Lab[address] [id number] Director: Pj Rider MD, [facility] ne: [phone] Reference Lab [id number] 16:14:00 Test Item Value Reference Range Interpretation Comments Reference Lab <9.0 U/mL 0.0-9.0 Testing (test code = PANCAMY) Reference Lab Less than 0.0-3.5 Testing (test 3.5 U/mL code = PANCAPR) Reference Lab <1:20 titer Neg:<1:20 Testing (test code = ANCAT) Reference Lab <1:20 titer Neg:<1:20 The presence o f positive Testing (test fluorescence e xhibiting code = ANCAP) P-ANCA orC-ANC A patterns alone is not sp ecific for the diagnosis o fWegener's Granulomatosis (WG) or microscopic polyangiitis.De cisions about treatment should not be based solely onANCA IFA results. The International A NCA Group Consensusrecomm ends follow up testing of p ositive sera with both FL-3 and MPO-ANCA enzyme immunoassays. A s many as 5% serumsamples are positive only b y EIA. Ref. AM J Clin Qqpnoh3093;111: 507-513. Reference Lab <1:20 titer Neg:<1:20 The atypical p ANCA pattern Testing (test has been obser chelita in code = ATANCA) asignificant percentage of patients with u lcerative colitis,primary sclerosing cholangitis and autoimmune hepatitis.Perfo rmed at: BN - [facility] [address] [id number] Di aimee: Chester ramírez MD, Phone: [phone] [id number] 05:12:00 Test Item Value Reference Range Interpretation Comments Chemistry (test 138 mmol/L 136-145 N code = NA-T) Chemistry (test 3.6 mmol/L 3.5-5.1 N code = K-T) Chemistry (test 106 mmol/L 98-107 N code = CL) Chemistry (test 25 mmol/L 22-29 N code = CO2) Chemistry (test 11 mmol/L 10-20 N code = ANGP) Chemistry (test Less than 4 9.8-20.1 L code = BUN) mg/dL Chemistry (test 0.66 mg/dL 0.6-1.1 N code = CREATT) Chemistry (test Greater than 90 Referenc e Range for code = EGFRMDRD) Estimated G FR: Gre ater than 90 mL/min/ 1.73 m2NOTE:The MDRD equation has no t been validated for use with theeld erly (over 70 years of age), women, patients with serious comorbi d condition or pe rsons with extremes o fbody size, muscle ma ss, or nutritional status. Chemistry (test 85 mg/dL 70-105 N code = GLU-T) Chemistry (test 8.5 mg/dL 7.8-10.44 N code = CA) Chemistry (test 0.8 mg/dL 0.2-1.2 N code = TBILI) Chemistry (test 6.5 g/dL 6.0-8.3 N code = TP) Chemistry (test 3.6 g/dL 3.5-5.0 N code = ALB) Chemistry (test 2.9 g/dL 2.4-3.5 N code = GLOB) Chemistry (test 1.2 g/dL 1.2-2.2 N code = AG) Chemistry (test 641 U/L 40-150 H code = ALP) Chemistry (test 53 U/L 5-34 H code = AST) Chemistry (test 86 U/L 8-55 H code = ALT) Reference Lab [id number] 22:07:00 Test Item Value Reference Range Interpretation Comments Reference Lab Testing 785 IU/L 39-117 H (test code = ISOALKT) Reference Lab Testing 25 % 14-68 (test code = ISOALKBT) Reference Lab Testing 74 % 18-85 (test code = ISOALKLT) Reference Lab Testing 1 % 0-18 Perfor med at: HD - (test code = ISOALKIT) [facility] [address] [id number] b Director: Chico Suero MD, Phone: [phone] at: [facility] Lab[address] [id number] Di aimee: Chester ramírez MD, Phone: [phone] [id number] 11:48:00 Test Item Value Reference Range Interpretation Comments Chemistry (test code = TBILI) 0.7 mg/dL 0.2-1.2 N Chemistry (test code = DBILI) 0.6 mg/dL 0.1-0.3 H Chemistry (test code = TP) 5.9 g/dL 6.0-8.3 L Chemistry (test code = ALB) 3.4 g/dL 3.5-5.0 L Chemistry (test code = ALP) 635 U/L 40-150 H Chemistry (test code = AST) 57 U/L 5-34 H Chemistry (test code = ALT) 92 U/L 8-55 H [id number] 06:08:00 Test Item Value Reference Range Interpretation Comments Chemistry (test 140 mmol/L 136-145 N code = NA-T) Chemistry (test 3.7 mmol/L 3.5-5.1 N code = K-T) Chemistry (test 107 mmol/L 98-107 N code = CL) Chemistry (test 29 mmol/L 22-29 N code = CO2) Chemistry (test 8 mmol/L 10-20 L code = ANGP) Chemistry (test 4 mg/dL 9.8-20.1 L code = BUN) Chemistry (test 0.64 mg/dL 0.6-1.1 N code = CREATT) Chemistry (test Greater than 90 Referenc e Range for code = EGFRMDRD) Estimated G FR: Gre ater than 90 mL/min/ 1.73 m2NOTE:The MDRD equation has no t been validated for use with theeld erly (over 70 years of age), women, patients with serious comorbi d condition or pe rsons with extremes o fbody size, muscle ma ss, or nutritional status. Chemistry (test 91 mg/dL 70-105 N code = GLU-T) Chemistry (test 8.5 mg/dL 7.8-10.44 N code = CA) [id number] 06:06:00 Test Item Value Reference Range Interpretation Comments Chemistry (test code = TBILI) 0.9 mg/dL 0.2-1.2 N Chemistry (test code = DBILI) 0.7 mg/dL 0.1-0.3 H Chemistry (test code = TP) 6.1 g/dL 6.0-8.3 N Chemistry (test code = ALB) 3.5 g/dL 3.5-5.0 N Chemistry (test code = ALP) 766 U/L 40-150 H Chemistry (test code = AST) 100 U/L 5-34 H Chemistry (test code = ALT) 129 U/L 8-55 H [id number] 05:57:00 Test Item Value Reference Range Interpretation Comments Hematology (test code = WBCT) 3.7 thou/uL 4.8-10.8 L Hematology (test code = RBCT) 3.41 mill/uL 4.20-5.40 L Hematology (test code = HGBT) 10.3 g/dL 12.0-16.0 L Hematology (test code = HCTT) 31.7 % 36.0-47.0 L Hematology (test code = MCV) 92.7 fl 81.0-99.0 N Hematology (test code = MCH) 30.3 pg 27.0-31.0 N Hematology (test code = MCHC) 32.7 g/dL 32.0-36.0 N Hematology (test code = RDW) 11.8 % 11.5-14.5 N Hematology (test code = PLTT) 201 thou/uL 130-400 N Hematology (test code = MPV) 7.0 fL 7.4-10.4 L Hematology (test code = %NEUT) 45.6 % 42.0-75.0 N Hematology (test code = %LYMPH) 38.8 % 21.0-51.0 N Hematology (test code = %MONO) 7.8 % 0.0-10.0 N Hematology (test code = %EOS) 7.4 % 0.0-10.0 N Hematology (test code = %BASO) 0.4 % 0.0-1.0 N Hematology (test code = NEUT#) 1.7 thou/uL 1.40-6.50 N Hematology (test code = LYMPH#) 1.4 thou/uL 1.20-3.40 N Hematology (test code = MONO#) 0.3 thou/uL 0.11-0.59 N Hematology (test code = EOS#) 0.3 thou/uL 0.0-0.7 N Hematology (test code = BASO#) 0.0 thou/uL 0.0-0.2 N [id number] 05:55:00 Test Item Value Reference Range Interpretation Comments Coagulation (test 13.5 SEC 12.0-14.7 N code = PT-T) Coagulation (test 1.0 ATTENTION: code = INR) READ CAREFULLY-- The recommended the rapeutic ranges for oral anticoagulanttr eatments are: ------ Low Intensity: 1.5 - 2.0 Moderate In tensity: 2.0 - 3.0 High Intensity (1): 2.5 - 3.5 High In tensity (2): 3.0 - 4. 0 CRITICAL: > 4.0 Anticoagulant? [id number] 05:36:00 Test Item Value Reference Range Interpretation Comments Chemistry (test 140 mmol/L 136-145 N code = NA-T) Chemistry (test 3.9 mmol/L 3.5-5.1 N code = K-T) Chemistry (test 107 mmol/L 98-107 N code = CL) Chemistry (test 27 mmol/L 22-29 N code = CO2) Chemistry (test 10 mmol/L 10-20 N code = ANGP) Chemistry (test 7 mg/dL 9.8-20.1 L code = BUN) Chemistry (test 0.64 mg/dL 0.6-1.1 N code = CREATT) Chemistry (test Greater than 90 Referenc e Range for code = EGFRMDRD) Estimated G FR: Gre ater than 90 mL/min/ 1.73 m2NOTE:The MDRD equation has no t been validated for use with theeld erly (over 70 years of age), women, patients with serious comorbi d condition or pe rsons with extremes o fbody size, muscle ma ss, or nutritional status. Chemistry (test 89 mg/dL 70-105 N code = GLU-T) Chemistry (test 8.9 mg/dL 7.8-10.44 N code = CA) [id number] 05:33:00 Test Item Value Reference Range Interpretation Comments Chemistry (test code = TBILI) 0.9 mg/dL 0.2-1.2 N Chemistry (test code = DBILI) 0.6 mg/dL 0.1-0.3 H Chemistry (test code = TP) 6.8 g/dL 6.0-8.3 N Chemistry (test code = ALB) 3.8 g/dL 3.5-5.0 N Chemistry (test code = ALP) 864 U/L 40-150 H Chemistry (test code = AST) 147 U/L 5-34 H Chemistry (test code = ALT) 160 U/L 8-55 H [id number] 05:28:00 Test Item Value Reference Range Interpretation Comments Hematology (test code = WBCT) 4.6 thou/uL 4.8-10.8 L Hematology (test code = RBCT) 3.58 mill/uL 4.20-5.40 L Hematology (test code = HGBT) 10.8 g/dL 12.0-16.0 L Hematology (test code = HCTT) 32.3 % 36.0-47.0 L Hematology (test code = MCV) 90.2 fl 81.0-99.0 N Hematology (test code = MCH) 30.2 pg 27.0-31.0 N Hematology (test code = MCHC) 33.4 g/dL 32.0-36.0 N Hematology (test code = RDW) 11.8 % 11.5-14.5 N Hematology (test code = PLTT) 217 thou/uL 130-400 N Hematology (test code = MPV) 6.6 fL 7.4-10.4 L Hematology (test code = %NEUT) 57.5 % 42.0-75.0 N Hematology (test code = %LYMPH) 30.2 % 21.0-51.0 N Hematology (test code = %MONO) 7.6 % 0.0-10.0 N Hematology (test code = %EOS) 3.6 % 0.0-10.0 N Hematology (test code = %BASO) 1.1 % 0.0-1.0 H Hematology (test code = NEUT#) 2.7 thou/uL 1.40-6.50 N Hematology (test code = LYMPH#) 1.4 thou/uL 1.20-3.40 N Hematology (test code = MONO#) 0.4 thou/uL 0.11-0.59 N Hematology (test code = EOS#) 0.2 thou/uL 0.0-0.7 N Hematology (test code = BASO#) 0.1 thou/uL 0.0-0.2 N Chemistry - Elizabeth [id number] 13:02:00 Test Item Value Reference Range Interpretation Comments Chemistry - Elizabeth Negative Negative Testing (test code = ANASC) Chemistry - Elizabeth Negative Negative SYMPHONY SC REEN Testing (test code INCLUDES: SIDDIQUI, = ANASYM) SS-A/Ro, SS-B/L a, U1RNP,RNP70, SCL-70, CENP, J o-1 Chemistry - Elizabeth 0.10 Ratio <0.7 Negative Testing (test code = ANASYMQUANT) Chemistry - Elizabeth 3.1 IU/mL <10 Negative Testing (test code = DSDNAIGG) Chemistry - Elizabeth dsDNA Less Testing (test code than 10.0 IU/mL = = DSDNAINTERP) Negative 10.0 - 15.0 IU /mL = Equivocal Greater than 15.0 IU/mL = POSITIV E Chemistry - Elizabeth NEW METHOD Values o btained Testing (test code with diff erent = ELIAANANEWMETH) assay meth ods CANNOT be usedINTERCHANGE ABLY .If in the cour se of monitoring a patient, the as say methodused for determining lev els is changed, a newbaseline/ser ial monitoring may need to be performed .SEE REFERENCE RANGE S FOR NEW METHODOLOGY.Met hod: Enzyme Linked Fluorescent Immunoassay (Elizabeth)Reference s: [employer] Elizabeth Package Inserts - Directions forWW [facility]quahJune,August 02, [employer] ic. [id number] 05:00:00 Test Item Value Reference Range Interpretation Comments Chemistry (test code = TBILI) 0.9 mg/dL 0.2-1.2 N Chemistry (test code = DBILI) 0.6 mg/dL 0.1-0.3 H Chemistry (test code = TP) 6.9 g/dL 6.0-8.3 N Chemistry (test code = ALB) 3.9 g/dL 3.5-5.0 N Chemistry (test code = ALP) 837 U/L 40-150 H Chemistry (test code = AST) 117 U/L 5-34 H Chemistry (test code = ALT) 144 U/L 8-55 H [id number] 04:50:00 Test Item Value Reference Range Interpretation Comments Chemistry (test 139 mmol/L 136-145 N code = NA-T) Chemistry (test 3.9 mmol/L 3.5-5.1 N code = K-T) Chemistry (test 107 mmol/L 98-107 N code = CL) Chemistry (test 24 mmol/L 22-29 N code = CO2) Chemistry (test 12 mmol/L 10-20 N code = ANGP) Chemistry (test 9 mg/dL 9.8-20.1 L code = BUN) Chemistry (test 0.63 mg/dL 0.6-1.1 N code = CREATT) Chemistry (test Greater than 90 Referenc e Range for code = EGFRMDRD) Estimated G FR: Gre ater than 90 mL/min/ 1.73 m2NOTE:The MDRD equation has no t been validated for use with theeld erly (over 70 years of age), women, patients with serious comorbi d condition or pe rsons with extremes o fbody size, muscle ma ss, or nutritional status. Chemistry (test 90 mg/dL 70-105 N code = GLU-T) Chemistry (test 8.4 mg/dL 7.8-10.44 N code = CA) [id number] 04:39:00 Test Item Value Reference Range Interpretation Comments Hematology (test code = WBCT) 4.8 thou/uL 4.8-10.8 N Hematology (test code = RBCT) 3.63 mill/uL 4.20-5.40 L Hematology (test code = HGBT) 10.8 g/dL 12.0-16.0 L Hematology (test code = HCTT) 32.7 % 36.0-47.0 L Hematology (test code = MCV) 90.0 fl 81.0-99.0 N Hematology (test code = MCH) 29.9 pg 27.0-31.0 N Hematology (test code = MCHC) 33.2 g/dL 32.0-36.0 N Hematology (test code = RDW) 12.1 % 11.5-14.5 N Hematology (test code = PLTT) 212 thou/uL 130-400 N Hematology (test code = MPV) 6.1 fL 7.4-10.4 L Hematology (test code = %NEUT) 57.1 % 42.0-75.0 N Hematology (test code = %LYMPH) 29.2 % 21.0-51.0 N Hematology (test code = %MONO) 6.9 % 0.0-10.0 N Hematology (test code = %EOS) 5.8 % 0.0-10.0 N Hematology (test code = %BASO) 1.0 % 0.0-1.0 N Hematology (test code = NEUT#) 2.7 thou/uL 1.40-6.50 N Hematology (test code = LYMPH#) 1.4 thou/uL 1.20-3.40 N Hematology (test code = MONO#) 0.3 thou/uL 0.11-0.59 N Hematology (test code = EOS#) 0.3 thou/uL 0.0-0.7 N Hematology (test code = BASO#) 0.0 thou/uL 0.0-0.2 N [id number] 17:07:00 Test Item Value Reference Range Interpretation Comments Chemistry (test code = IGG) 1032.00 mg/dL 552-1631 N [id number] 17:07:00 Test Item Value Reference Range Interpretation Comments Chemistry (test code = IGM) 215.00 mg/dL 33-293 N [id number] 00:50:00 Test Item Value Reference Range Interpretation Comments Urinalysis (test code = YELLOW Yellow UACLR) Urinalysis (test code = CLEAR Clear UACLY) Urinalysis (test code = Greater than 1.060 1.002-1.036 H SPGR) Urinalysis (test code = 6.5 5.0-9.0 N CELSO) Urinalysis (test code = Negative Negative UALEU) Urinalysis (test code = Negative Negative UANIT) Urinalysis (test code = Negative mg/dL Neg-Trace PROUADIP) Urinalysis (test code = Negative mg/dL Negative GLUCU) Urinalysis (test code = Negative mg/dL Negative KETU) Urinalysis (test code = 1.0 mg/dL 0.2-1.0 UAUROB) Urinalysis (test code = Negative Negative UABIL) Urinalysis (test code = Negative Negative UABLD) Urine Source: Urine Clean [employer] - [id number] 00:25:00 Test Item Value Reference Range Interpretation Comments Chemistry - Specials (test Non-Reactive NonReactive code = THEPAIGM) Chemistry - Specials (test Non-Reactive S/CO NonReactive code = THBSAG) Chemistry - Specials (test Non-Reactive NonReactive code = INTHBCM) Chemistry - Specials (test Non-Reactive NonReactive code = INTHEPC) [id number] 22:12:00 Test Item Value Reference Range Interpretation Comments Chemistry (test code 139 mmol/L 136-145 N = NA-T) Chemistry (test code 4.0 mmol/L 3.5-5.1 N = K-T) Chemistry (test code 102 mmol/L 98-107 N = CL) Chemistry (test code 25 mmol/L 22-29 N = CO2) Chemistry (test code 16 mmol/L 10-20 N = ANGP) Chemistry (test code 12 mg/dL 9.8-20.1 N = BUN) Chemistry (test code 0.77 mg/dL 0.6-1.1 N = CREATT) Chemistry (test code 78 Referen ce Range for = EGFRMDRD) Estimated GFR: Great er than 90 mL/min/1.73 m2NOTE:The MDRD equation has no t been validated for u se with theelderly (ove r 70 years of age), women, patientswith se rious comorbid condit ion or persons with ex tremes ofbody size, mu scle mass, or nutrit ional status. Chemistry (test code 95 mg/dL 70-105 N = GLU-T) Chemistry (test code 10.2 mg/dL 7.8-10.44 N = CA) Chemistry (test code 0.8 mg/dL 0.2-1.2 N = TBILI) Chemistry (test code 9.2 g/dL 6.0-8.3 H = TP) Chemistry (test code 4.9 g/dL 3.5-5.0 N = ALB) Chemistry (test code 4.3 g/dL 2.4-3.5 H = GLOB) Chemistry (test code 1.1 g/dL 1.2-2.2 L = AG) Chemistry (test code 1031 U/L 40-150 H = ALP) Chemistry (test code 117 U/L 5-34 H = AST) Chemistry (test code 196 U/L 8-55 H = ALT) [id number] 22:12:00 Test Item Value Reference Range Interpretation Comments Chemistry (test code = LIP) 22 U/L 8-78 N [id number] 21:50:00 Test Item Value Reference Range Interpretation Comments Hematology (test code = WBCT) 8.9 thou/uL 4.8-10.8 N Hematology (test code = RBCT) 4.69 mill/uL 4.20-5.40 N Hematology (test code = HGBT) 14.0 g/dL 12.0-16.0 N Hematology (test code = HCTT) 43.7 % 36.0-47.0 N Hematology (test code = MCV) 93.1 fl 81.0-99.0 N Hematology (test code = MCH) 29.9 pg 27.0-31.0 N Hematology (test code = MCHC) 32.2 g/dL 32.0-36.0 N Hematology (test code = RDW) 12.5 % 11.5-14.5 N Hematology (test code = PLTT) 369 thou/uL 130-400 N Hematology (test code = MPV) 6.8 fL 7.4-10.4 L Hematology (test code = %NEUT) 61.7 % 42.0-75.0 N Hematology (test code = %LYMPH) 28.1 % 21.0-51.0 N Hematology (test code = %MONO) 5.3 % 0.0-10.0 N Hematology (test code = %EOS) 3.7 % 0.0-10.0 N Hematology (test code = %BASO) 1.2 % 0.0-1.0 H Hematology (test code = NEUT#) 5.5 thou/uL 1.40-6.50 N Hematology (test code = LYMPH#) 2.5 thou/uL 1.20-3.40 N Hematology (test code = MONO#) 0.5 thou/uL 0.11-0.59 N Hematology (test code = EOS#) 0.3 thou/uL 0.0-0.7 N Hematology (test code = BASO#) 0.1 thou/uL 0.0-0.2 N [id number] 22:49:00 Test Item Value Reference Range Interpretation Comments Chemistry (test 139 mmol/L 136-145 N code = NA-T) Chemistry (test 3.9 mmol/L 3.5-5.1 N code = K-T) Chemistry (test 105 mmol/L 98-107 N code = CL) Chemistry (test 22 mmol/L 22-29 N code = CO2) Chemistry (test 16 mmol/L 10-20 N code = ANGP) Chemistry (test 10 mg/dL 9.8-20.1 N code = BUN) Chemistry (test 0.63 mg/dL 0.6-1.1 N code = CREATT) Chemistry (test Greater than 90 Referenc e Range for code = EGFRMDRD) Estimated G FR: Gre ater than 90 mL/min/ 1.73 m2NOTE:The MDRD equation has no t been validated for use with theeld erly (over 70 years of age), women, patients with serious comorbi d condition or pe rsons with extremes o fbody size, muscle ma ss, or nutritional status. Chemistry (test 103 mg/dL 70-105 N code = GLU-T) Chemistry (test 9.1 mg/dL 7.8-10.44 N code = CA) Chemistry (test 0.8 mg/dL 0.2-1.2 N code = TBILI) Chemistry (test 7.9 g/dL 6.0-8.3 N code = TP) Chemistry (test 4.1 g/dL 3.5-5.0 N code = ALB) Chemistry (test 3.8 g/dL 2.4-3.5 H code = GLOB) Chemistry (test 1.1 g/dL 1.2-2.2 L code = AG) Chemistry (test 696 U/L 40-150 H code = ALP) Chemistry (test 73 U/L 5-34 H code = AST) Chemistry (test 78 U/L 8-55 H code = ALT) [id number] 22:49:00 Test Item Value Reference Range Interpretation Comments Chemistry (test code = LIP) 12 U/L 8-78 N [id number] 22:24:00 Test Item Value Reference Range Interpretation Comments Hematology (test code = WBCT) 6.0 thou/uL 4.8-10.8 N Hematology (test code = RBCT) 3.59 mill/uL 4.20-5.40 L Hematology (test code = HGBT) 10.9 g/dL 12.0-16.0 L Hematology (test code = HCTT) 32.3 % 36.0-47.0 L Hematology (test code = MCV) 89.9 fl 81.0-99.0 N Hematology (test code = MCH) 30.4 pg 27.0-31.0 N Hematology (test code = MCHC) 33.8 g/dL 32.0-36.0 N Hematology (test code = RDW) 12.6 % 11.5-14.5 N Hematology (test code = PLTT) 251 thou/uL 130-400 N Hematology (test code = MPV) 7.3 fL 7.4-10.4 L Hematology (test code = %NEUT) 63.7 % 42.0-75.0 N Hematology (test code = %LYMPH) 24.9 % 21.0-51.0 N Hematology (test code = %MONO) 8.4 % 0.0-10.0 N Hematology (test code = %EOS) 2.5 % 0.0-10.0 N Hematology (test code = %BASO) 0.5 % 0.0-1.0 N Hematology (test code = NEUT#) 3.8 thou/uL 1.40-6.50 N Hematology (test code = LYMPH#) 1.5 thou/uL 1.20-3.40 N Hematology (test code = MONO#) 0.5 thou/uL 0.11-0.59 N Hematology (test code = EOS#) 0.2 thou/uL 0.0-0.7 N Hematology (test code = BASO#) 0.0 thou/uL 0.0-0.2 N [id number] 22:00:00 Test Item Value Reference Range Interpretation Comments Urinalysis (test code = UACLR) YELLOW Yellow Urinalysis (test code = UACLY) CLEAR Clear Urinalysis (test code = SPGR) 1.012 1.002-1.036 N Urinalysis (test code = CELSO) 6.0 5.0-9.0 N Urinalysis (test code = UALEU) Negative Negative Urinalysis (test code = UANIT) Negative Negative Urinalysis (test code = Negative mg/dL Neg-Trace PROUADIP) Urinalysis (test code = GLUCU) Negative mg/dL Negative Urinalysis (test code = KETU) Negative mg/dL Negative Urinalysis (test code = 1.0 mg/dL 0.2-1.0 UAUROB) Urinalysis (test code = UABIL) Negative Negative Urinalysis (test code = UABLD) Negative Negative Urine Source: Urine Clean [id number] 09:28:00 Test Item Value Reference Range Interpretation Comments Accuchek (test code = ACU) 99 mg/dL 70-110 N [id number] 09:14:00 Test Item Value Reference Range Interpretation Comments Urinalysis (test code = UACLR) YELLOW Yellow Urinalysis (test code = UACLY) CLEAR Clear Urinalysis (test code = SPGR) 1.012 1.002-1.036 N Urinalysis (test code = CELSO) 6.5 5.0-9.0 N Urinalysis (test code = UALEU) Negative Negative Urinalysis (test code = UANIT) Negative Negative Urinalysis (test code = Negative mg/dL Neg-Trace PROUADIP) Urinalysis (test code = GLUCU) Negative mg/dL Negative Urinalysis (test code = KETU) Negative mg/dL Negative Urinalysis (test code = 1.0 mg/dL 0.2-1.0 UAUROB) Urinalysis (test code = UABIL) Negative Negative Urinalysis (test code = UABLD) Negative Negative Urine Source: Urine Clean [id number] 21:28:00 Test Item Value Reference Range Interpretation Comments Urinalysis (test code = UACLR) YELLOW Yellow Urinalysis (test code = UACLY) CLEAR Clear Urinalysis (test code = SPGR) 1.010 1.002-1.036 N Urinalysis (test code = CELSO) 6.5 5.0-9.0 N Urinalysis (test code = UALEU) Negative Negative Urinalysis (test code = UANIT) Negative Negative Urinalysis (test code = Negative mg/dL Neg-Trace PROUADIP) Urinalysis (test code = GLUCU) Negative mg/dL Negative Urinalysis (test code = KETU) Negative mg/dL Negative Urinalysis (test code = 1.0 mg/dL 0.2-1.0 UAUROB) Urinalysis (test code = UABIL) Negative Negative Urinalysis (test code = UABLD) Negative Negative Urine Source: Urine Clean [id number] 21:09:00 Test Item Value Reference Range Interpretation Comments Chemistry (test 137 mmol/L 136-145 N code = NA-T) Chemistry (test 3.9 mmol/L 3.5-5.1 N code = K-T) Chemistry (test 103 mmol/L 98-107 N code = CL) Chemistry (test 25 mmol/L 22-29 N code = CO2) Chemistry (test 13 mmol/L 10-20 N code = ANGP) Chemistry (test 13 mg/dL 9.8-20.1 N code = BUN) Chemistry (test 0.65 mg/dL 0.6-1.1 N code = CREATT) Chemistry (test Greater than 90 Referenc e Range for code = EGFRMDRD) Estimated G FR: Gre ater than 90 mL/min/ 1.73 m2NOTE:The MDRD equation has no t been validated for use with theeld erly (over 70 years of age), women, patients with serious comorbi d condition or pe rsons with extremes o fbody size, muscle ma ss, or nutritional status. Chemistry (test 94 mg/dL 70-105 N code = GLU-T) Chemistry (test 9.1 mg/dL 7.8-10.44 N code = CA) Chemistry (test 0.7 mg/dL 0.2-1.2 N code = TBILI) Chemistry (test 7.8 g/dL 6.0-8.3 N code = TP) Chemistry (test 4.1 g/dL 3.5-5.0 N code = ALB) Chemistry (test 3.7 g/dL 2.4-3.5 H code = GLOB) Chemistry (test 1.1 g/dL 1.2-2.2 L code = AG) Chemistry (test 794 U/L 40-150 H code = ALP) Chemistry (test 106 U/L 5-34 H code = AST) Chemistry (test 95 U/L 8-55 H code = ALT) [id number] 21:09:00 Test Item Value Reference Range Interpretation Comments Chemistry (test code = LIP) 39 U/L 8-78 N [id number] 20:49:00 Test Item Value Reference Range Interpretation Comments Hematology (test code = WBCT) 7.1 thou/uL 4.8-10.8 N Hematology (test code = RBCT) 3.60 mill/uL 4.20-5.40 L Hematology (test code = HGBT) 11.0 g/dL 12.0-16.0 L Hematology (test code = HCTT) 33.4 % 36.0-47.0 L Hematology (test code = MCV) 92.7 fl 81.0-99.0 N Hematology (test code = MCH) 30.5 pg 27.0-31.0 N Hematology (test code = MCHC) 32.9 g/dL 32.0-36.0 N Hematology (test code = RDW) 12.4 % 11.5-14.5 N Hematology (test code = PLTT) 332 thou/uL 130-400 N Hematology (test code = MPV) 6.3 fL 7.4-10.4 L Hematology (test code = %NEUT) 60.0 % 42.0-75.0 N Hematology (test code = %LYMPH) 27.6 % 21.0-51.0 N Hematology (test code = %MONO) 7.5 % 0.0-10.0 N Hematology (test code = %EOS) 4.4 % 0.0-10.0 N Hematology (test code = %BASO) 0.6 % 0.0-1.0 N Hematology (test code = NEUT#) 4.3 thou/uL 1.40-6.50 N Hematology (test code = LYMPH#) 2.0 thou/uL 1.20-3.40 N Hematology (test code = MONO#) 0.5 thou/uL 0.11-0.59 N Hematology (test code = EOS#) 0.3 thou/uL 0.0-0.7 N Hematology (test code = BASO#) 0.0 thou/uL 0.0-0.2 N [id number] 21:34:00 Test Item Value Reference Range Interpretation Comments Toxicology (test Not Detected NotDetected code = ROSMERY) Toxicology (test Not Detected NotDetected code = PCP) Toxicology (test Not Detected NotDetected code = COCN) Toxicology (test Not Detected NotDetected code = METHAMPU) Toxicology (test Detected NotDetected A code = OPIA) Toxicology (test Not Detected NotDetected code = AMPHU) Toxicology (test Detected NotDetected A code = TEVIN) Toxicology (test Detected NotDetected A code = TRICY) Toxicology (test Not Detected NotDetected code = MTD) Toxicology (test Not Detected NotDetected code = SLIM) Toxicology (test Detected NotDetected A code = OXYCOD) Toxicology (test Not Detected NotDetected code = PPX) Toxicology (test The MedT ox Profile-V code = MTCUTOFF) Panel for Q ualitative Drugs ofAbuse a ssays are for presump tive screening testi ng only.The drug c lass and detection l imits are as follows: Drug Class Detection LimitAmphetamin e 500 ng/mL*Barbitura alphonso 200 ng/mLBenzodiaze pines 150 ng/mL*Cocaine 150 ng/mL*Methamphe tamine 500 ng/mL*Methadone 200 ng/mL*Opiates 100 ng/mL*Oxycodone 100 n g/mLPCP 25 ng/mLPropox yphene 30 0 ng/mLTricyclic Antidepressants 300 ng/mLCannabinoi ds (THC) 50 ng/mLTests whic h yield a presumptive p ositive result must bet ested using a more sp ecific alternate chemi brandy method inorder to obtain a confir med analytical resu lt. Additionalconfi rmation and identificat ion may be ordered on a routinebasis, i f desired. Presu mptive positive urines are held forto mukesh germain. Urine Source: Urine Clean [id number] 19:17:00 Test Item Value Reference Range Interpretation Comments Urinalysis (test code = UACLR) YELLOW Yellow Urinalysis (test code = UACLY) CLEAR Clear Urinalysis (test code = SPGR) 1.013 1.002-1.036 N Urinalysis (test code = CELSO) 6.0 5.0-9.0 N Urinalysis (test code = UALEU) Negative Negative Urinalysis (test code = UANIT) Negative Negative Urinalysis (test code = Negative mg/dL Neg-Trace PROUADIP) Urinalysis (test code = GLUCU) Negative mg/dL Negative Urinalysis (test code = KETU) Negative mg/dL Negative Urinalysis (test code = 1.0 mg/dL 0.2-1.0 UAUROB) Urinalysis (test code = UABIL) Negative Negative Urinalysis (test code = UABLD) Negative Negative Urine Source: Urine [id number] 18:48:00 Test Item Value Reference Range Interpretation Comments Chemistry (test code 137 mmol/L 136-145 N = NA-T) Chemistry (test code 3.9 mmol/L 3.5-5.1 N = K-T) Chemistry (test code 105 mmol/L 98-107 N = CL) Chemistry (test code 21 mmol/L 22-29 L = CO2) Chemistry (test code 15 mmol/L 10-20 N = ANGP) Chemistry (test code 13 mg/dL 9.8-20.1 N = BUN) Chemistry (test code 0.72 mg/dL 0.6-1.1 N = CREATT) Chemistry (test code 84 Referen ce Range for = EGFRMDRD) Estimated GFR: Great er than 90 mL/min/1.73 m2NOTE:The MDRD equation has no t been validated for u se with theelderly (ove r 70 years of age), women, patientswith se rious comorbid condit ion or persons with ex tremes ofbody size, mu scle mass, or nutrit ional status. Chemistry (test code 82 mg/dL 70-105 N = GLU-T) Chemistry (test code 9.3 mg/dL 7.8-10.44 N = CA) Chemistry (test code 0.9 mg/dL 0.2-1.2 N = TBILI) Chemistry (test code 8.1 g/dL 6.0-8.3 N = TP) Chemistry (test code 4.2 g/dL 3.5-5.0 N = ALB) Chemistry (test code 3.9 g/dL 2.4-3.5 H = GLOB) Chemistry (test code 1.1 g/dL 1.2-2.2 L = AG) Chemistry (test code 750 U/L 40-150 H = ALP) Chemistry (test code 68 U/L 5-34 H = AST) Chemistry (test code 84 U/L 8-55 H = ALT) [id number] 18:48:00 Test Item Value Reference Range Interpretation Comments Chemistry (test code = JORGE) 53.0 U/L 25-125 N [id number] 18:48:00 Test Item Value Reference Range Interpretation Comments Chemistry (test code = LIP) 10 U/L 8-78 N [id number] 18:19:00 Test Item Value Reference Range Interpretation Comments Hematology (test code = WBCT) 6.3 thou/uL 4.8-10.8 N Hematology (test code = RBCT) 3.74 mill/uL 4.20-5.40 L Hematology (test code = HGBT) 11.3 g/dL 12.0-16.0 L Hematology (test code = HCTT) 34.8 % 36.0-47.0 L Hematology (test code = MCV) 93.0 fl 81.0-99.0 N Hematology (test code = MCH) 30.1 pg 27.0-31.0 N Hematology (test code = MCHC) 32.4 g/dL 32.0-36.0 N Hematology (test code = RDW) 12.1 % 11.5-14.5 N Hematology (test code = PLTT) 231 thou/uL 130-400 N Hematology (test code = MPV) 7.2 fL 7.4-10.4 L Hematology (test code = %NEUT) 58.6 % 42.0-75.0 N Hematology (test code = %LYMPH) 29.3 % 21.0-51.0 N Hematology (test code = %MONO) 6.6 % 0.0-10.0 N Hematology (test code = %EOS) 4.2 % 0.0-10.0 N Hematology (test code = %BASO) 1.2 % 0.0-1.0 H Hematology (test code = NEUT#) 3.7 thou/uL 1.40-6.50 N Hematology (test code = LYMPH#) 1.8 thou/uL 1.20-3.40 N Hematology (test code = MONO#) 0.4 thou/uL 0.11-0.59 N Hematology (test code = EOS#) 0.3 thou/uL 0.0-0.7 N Hematology (test code = BASO#) 0.1 thou/uL 0.0-0.2 N Culture, [id number] 10:22:00 Test Item Value Reference Range Interpretation Comments Culture, Urine (test code = URC) NF N Culture, Urine (test code = URC1) 10 MSF N [id number] 17:38:00 Test Item Value Reference Range Interpretation Comments Chemistry (test code = PHOS) 2.9 mg/dL 2.3-4.7 N [id number] 17:04:00 Test Item Value Reference Range Interpretation Comments Chemistry (test code 138 mmol/L 136-145 N = NA-T) Chemistry (test code 4.5 mmol/L 3.5-5.1 N = K-T) Chemistry (test code 104 mmol/L 98-107 N = CL) Chemistry (test code 25 mmol/L 22-29 N = CO2) Chemistry (test code 14 mmol/L 10-20 N = ANGP) Chemistry (test code 14 mg/dL 9.8-20.1 N = BUN) Chemistry (test code 0.68 mg/dL 0.6-1.1 N = CREATT) Chemistry (test code 90 Referen ce Range for = EGFRMDRD) Estimated GFR: Great er than 90 mL/min/1.73 m2NOTE:The MDRD equation has no t been validated for u se with theelderly (ove r 70 years of age), women, patientswith se rious comorbid condit ion or persons with ex tremes ofbody size, mu scle mass, or nutrit ional status. Chemistry (test code 94 mg/dL 70-105 N = GLU-T) Chemistry (test code 9.4 mg/dL 7.8-10.44 N = CA) Chemistry (test code 0.8 mg/dL 0.2-1.2 N = TBILI) Chemistry (test code 8.0 g/dL 6.0-8.3 N = TP) Chemistry (test code 4.1 g/dL 3.5-5.0 N = ALB) Chemistry (test code 3.9 g/dL 2.4-3.5 H = GLOB) Chemistry (test code 1.1 g/dL 1.2-2.2 L = AG) Chemistry (test code 940 U/L 40-150 H = ALP) Chemistry (test code 88 U/L 5-34 H = AST) Chemistry (test code 95 U/L 8-55 H = ALT) Chemistry - BNP, HgbA1c, [id number] 17:04:00 Test Item Value Reference Range Interpretation Comments Chemistry - BNP, 4.9 % 4.0-6.0 N Therapeutic goals for glycemic HgbA1c, PTHi (test control ( ADA)Adults:- Goal of code = TAXZ1WV) therapy: Les s than 7.0% HbA1c- Action suggeste d: Greater than 8.0% LkU1bNawlu tric patients:- Toddlers and pr eschoolers: Less than 8.5% (but Greater than 7.5%)- Katelynn ool age (6-12 years): Less th an 8%- Adolescents and young adults (13-19 years): Less than 7.5%Diagnosing diabetes (ADA)- HbA1c: Greater than or equal to 6.5% Values of 5.7 - 6.4% indicate HIGH risk for developing DiabetesInterna tional Expert Committee Repor t on the Role of the [id number] in the Diagnosis of Di abetes. Diabetes Care 2009July;32(7): 1327-1334ADA, Diagnosis cla ssification of diabetes [facility].Diabetes Care 2010; 33 S uppl 1:S62 [id number] 16:59:00 Test Item Value Reference Range Interpretation Comments Chemistry (test code = CRP) 1.16 mg/dL = or < 0.5 H What test does the doctor want? C-REACTIVE PROTEIN (CRP)[id number] 16:53:00 Test Item Value Reference Range Interpretation Comments Urinalysis (test code = UACLR) Yellow Yellow Urinalysis (test code = UACLY) Clear Clear Urinalysis (test code = SPGR) 1.020 1.005-1.030 N Urinalysis (test code = CELSO) 6.0 5.0-9.0 N Urinalysis (test code = UALEU) Negative Negative Urinalysis (test code = UANIT) Negative Negative Urinalysis (test code = Negative mg/dL Neg-Trace PROUADIP) Urinalysis (test code = GLUCU) Negative mg/dL Negative Urinalysis (test code = KETU) Negative mg/dL Negative Urinalysis (test code = 4.0 mg/dL 0.2-1.0 A UAUROB) Urinalysis (test code = UABIL) Negative Negative Urinalysis (test code = UABLD) Negative Negative Urinalysis (test code = UARBC) None Seen HPF 0-3 Urinalysis (test code = UAWBC) 0-3 HPF 0-3 Urinalysis (test code = 7-10 HPF 0-3 A UASQUAM) Urinalysis (test code = UABAC) Rare-Few HPF None Seen Urine Source: Urine Clean [id number] 16:46:00 Test Item Value Reference Range Interpretation Comments Hematology (test code = WBCT) 6.2 thou/uL 4.8-10.8 N Hematology (test code = RBCT) 3.81 mill/uL 4.20-5.40 L Hematology (test code = HGBT) 11.2 g/dL 12.0-16.0 L Hematology (test code = HCTT) 35.7 % 36.0-47.0 L Hematology (test code = MCV) 93.8 fl 81.0-99.0 N Hematology (test code = MCH) 29.5 pg 27.0-31.0 N Hematology (test code = MCHC) 31.5 g/dL 32.0-36.0 L Hematology (test code = RDW) 13.6 % 11.5-14.5 N Hematology (test code = PLTT) 284 thou/uL 130-400 N Hematology (test code = MPV) 6.8 fL 7.4-10.4 L Hematology (test code = %NEUT) 67.8 % 42.0-75.0 N Hematology (test code = %LYMPH) 23.1 % 21.0-51.0 N Hematology (test code = %MONO) 6.2 % 0.0-10.0 N Hematology (test code = %EOS) 2.0 % 0.0-10.0 N Hematology (test code = %BASO) 0.9 % 0.0-1.0 N Hematology (test code = NEUT#) 4.2 thou/uL 1.40-6.50 N Hematology (test code = LYMPH#) 1.4 thou/uL 1.20-3.40 N Hematology (test code = MONO#) 0.4 thou/uL 0.11-0.59 N Hematology (test code = EOS#) 0.1 thou/uL 0.0-0.7 N Hematology (test code = BASO#) 0.1 thou/uL 0.0-0.2 N [id number] 21:59:00 Test Item Value Reference Range Interpretation Comments Urinalysis (test code = YELLOW Yellow UACLR) Urinalysis (test code = CLEAR Clear UACLY) Urinalysis (test code = 1.014 1.002-1.036 N SPGR) Urinalysis (test code = 6.0 5.0-9.0 N CELSO) Urinalysis (test code = Trace Negative A UALEU) Urinalysis (test code = Negative Negative UANIT) Urinalysis (test code = Negative mg/dL Neg-Trace PROUADIP) Urinalysis (test code = Negative mg/dL Negative GLUCU) Urinalysis (test code = Negative mg/dL Negative KETU) Urinalysis (test code = 1.0 mg/dL 0.2-1.0 UAUROB) Urinalysis (test code = Negative Negative UABIL) Urinalysis (test code = Negative Negative UABLD) Urinalysis (test code = 4-6 HPF 0-3 UARBC) Urinalysis (test code = 11-20 HPF 0-3 A UAWBC) Urinalysis (test code = 4-6 HPF 0-3 A UASQUAM) Urinalysis (test code = 3+ HPF None Seen A UABAC) Urinalysis (test code = 0-3 HYALINE CAST LPF 0-3 Hyaline UACAST) Urine Source: Urine Clean CatchSepsis - Lactic Acid >2 [id number] 23:59:00 Test Item Value Reference Range Interpretation Comments Sepsis - Lactic Additional Lactate testin g will be Acid >2 Rflx performed in 3 hrs (test code = according to e [id number]) SepsisProtocol. [id number] 21:12:00 Test Item Value Reference Range Interpretation Comments Chemistry (test code = JORGE) 59.0 U/L 25-125 N [id number] 20:59:00 Test Item Value Reference Range Interpretation Comments Chemistry (test 141 mmol/L 136-145 N code = NA-T) Chemistry (test 3.7 mmol/L 3.5-5.1 N code = K-T) Chemistry (test 108 mmol/L 98-107 H code = CL) Chemistry (test 24 mmol/L 22-29 N code = CO2) Chemistry (test 13 mmol/L 10-20 N code = ANGP) Chemistry (test 4 mg/dL 9.8-20.1 L code = BUN) Chemistry (test 0.74 mg/dL 0.6-1.1 N code = CREATT) Chemistry (test 82 Reference Ra nge for code = EGFRMDRD) Estimated G FR: Gre ater than 90 mL/min/ 1.73 m2NOTE:The MDRD equation has no t been validated for use with theeld erly (over 70 years of age), women, patients with serious comorbi d condition or pe rsons with extremes o fbody size, muscle ma ss, or nutritional status. Chemistry (test 98 mg/dL 70-105 N code = GLU-T) Chemistry (test 8.9 mg/dL 7.8-10.44 N code = CA) Chemistry (test 0.5 mg/dL 0.2-1.2 N code = TBILI) Chemistry (test 7.8 g/dL 6.0-8.3 N code = TP) Chemistry (test 4.0 g/dL 3.5-5.0 N code = ALB) Chemistry (test 3.8 g/dL 2.4-3.5 H code = GLOB) Chemistry (test 1.1 g/dL 1.2-2.2 L code = AG) Chemistry (test Less than 8 40-150 L code = ALP) U/L Chemistry (test 92 U/L 5-34 H code = AST) Chemistry (test 87 U/L 8-55 H code = ALT) [id number] 20:59:00 Test Item Value Reference Range Interpretation Comments Chemistry (test code = LIP) 32 U/L 8-78 N Chemistry - [id number] 20:59:00 Test Item Value Reference Range Interpretation Comments Chemistry - Lactate (test code = 2.1 mmol/L 0.5-2.2 N LACTSEP-T) [id number] 20:43:00 Test Item Value Reference Range Interpretation Comments Urinalysis (test code = UACLR) YELLOW Yellow Urinalysis (test code = UACLY) CLEAR Clear Urinalysis (test code = SPGR) 1.008 1.002-1.036 N Urinalysis (test code = CELSO) 6.5 5.0-9.0 N Urinalysis (test code = UALEU) Negative Negative Urinalysis (test code = UANIT) Negative Negative Urinalysis (test code = Negative mg/dL Neg-Trace PROUADIP) Urinalysis (test code = GLUCU) Negative mg/dL Negative Urinalysis (test code = KETU) Negative mg/dL Negative Urinalysis (test code = 1.0 mg/dL 0.2-1.0 UAUROB) Urinalysis (test code = UABIL) Negative Negative Urinalysis (test code = UABLD) Negative Negative Urine Source: Urine [id number] 20:37:00 Test Item Value Reference Range Interpretation Comments Hematology (test code = WBCT) 7.0 thou/uL 4.8-10.8 N Hematology (test code = RBCT) 4.09 mill/uL 4.20-5.40 L Hematology (test code = HGBT) 11.9 g/dL 12.0-16.0 L Hematology (test code = HCTT) 36.0 % 36.0-47.0 N Hematology (test code = MCV) 88.0 fl 81.0-99.0 N Hematology (test code = MCH) 29.0 pg 27.0-31.0 N Hematology (test code = MCHC) 32.9 g/dL 32.0-36.0 N Hematology (test code = RDW) 14.1 % 11.5-14.5 N Hematology (test code = PLTT) 299 thou/uL 130-400 N Hematology (test code = MPV) 6.7 fL 7.4-10.4 L Hematology (test code = %NEUT) 64.6 % 42.0-75.0 N Hematology (test code = %LYMPH) 22.3 % 21.0-51.0 N Hematology (test code = %MONO) 9.1 % 0.0-10.0 N Hematology (test code = %EOS) 2.5 % 0.0-10.0 N Hematology (test code = %BASO) 1.4 % 0.0-1.0 H Hematology (test code = NEUT#) 4.5 thou/uL 1.40-6.50 N Hematology (test code = LYMPH#) 1.6 thou/uL 1.20-3.40 N Hematology (test code = MONO#) 0.6 thou/uL 0.11-0.59 H Hematology (test code = EOS#) 0.2 thou/uL 0.0-0.7 N Hematology (test code = BASO#) 0.1 thou/uL 0.0-0.2 N
--- OUTSIDE RECORDS SUMMARY | 2019-09-14 19:51 | XMS REPORT ---
[...] End Status Dosage System Date Date Lexapro [facility] 20514502584 20 MG Orally Active 1 table t Once a day Seroquel XR ND 85514827438 300 MG Orally Active 1 tablet Once a day in the evening Diazepam ND 19070267434 5 MG Orally Active 1 table t Once a day prn as needed panic attacks Flonase [facility] 00664744379 50 MCG/ACT Active 2 spray i n Nasally Once a each day nostril Losartan ND 64108280749 100 MG Orally Active 1 tab let Potassium Once a day Doxycycline ND 09171267390 100 MG Orally Active 1 capsule Hyclate twice a day Azithromycin [facility] 92707743475 250 MG Orally Active 2 tablets Once a day on the first day, then 1 tablet daily for 4 days PredniSONE [facility] 17699702774 10 MG Orally Active 2 ta blet Once a day daily x 5 days then one tablet daily x 5 days Gabapentin [facility] 77325774280 300 MG Orally Active 1 c apsule Once a day Losartan [facility] 99605069087 100 MG Active TAKE 1 Potassium TABLET BY MOUTH EVERY DAY Robaxin-750 [facility] 25236859049 750 MG Orally Active 1 tablet every 4 hrs Phenergan [facility] [address]-21 25mg Po Q 12 Active one tablet hours Results Name Result Date Reference Range Unit Abnormali ty Flag Iron and TIBC ----Iron Bind.Cap.(TIBC) 378 20190714 250-450 ug/dL ----UIBC 314 94492419 131-425 ug/dL ----Iron 64 10427265 27-159 ug/dL ----Iron Saturation 17 69095983 15-55 % CBC With Differential/Platelet ----MCHC 31.5 49542720 31.5-35.7 g/dL ----MCH 30.3 87648247 26.6-33.0 pg ----Platelets 274 59347701 150-450 x10E3/uL ----RDW 14.2 [id number] 11.7-15.4 % ----Immature Granulocytes 0 75005442 Not Estab. % ----Immature Grans (Abs) 0.0 [id number] 0.0-0.1 x10E3/uL ----Lymphs 28 28106155 Not Estab. % ----Monocytes 8 42260714 Not Estab. % ----Neutrophils 62 27936265 Not Estab. % ----Neutrophils (Absolute) 4.1 [id number] 1.4-7.0 x10E3/uL ----Hematocrit 37.1 48731114 34.0-46.6 % ----Lymphs (Absolute) 1.8 [id number] 0.7-3.1 x10E3/uL ----MCV 96 43813412 79-97 fL ----Eos 2 [id number] Not Estab. % ----RBC 3.86 [id number] 3.77-5.28 x10E6/uL ----Basos 0 [id number] Not Estab. % ----Hemoglobin 11.7 20190714 11.1-15.9 g/dL ----Baso (Absolute) 0.0 [id number] 0.0-0.2 x10E3/uL ----WBC 6.7 20190714 3.4-10.8 x10E3/uL ----Monocytes(Absolute) 0.5 [id number] 0.1-0.9 x10E3/uL ----Eos (Absolute) 0.1 [id number] 0.0-0.4 x10E3/uL Summary Purpose eClinicalWorks Submission
--- OUTSIDE RECORDS SUMMARY | 2019-09-14 19:52 | XMS REPORT | Summary of Care ---
:1960 Author Organization [facility] Address [address] [place] [address] Care Team Providers Name Role Phone Guerline Slade Primary Care Provider Reason for Referral Radiology Services (STAT) Status Reason Specialty Diagnoses / Referred By Referred To Procedures Contact Contact New Request Diagnostic Diagnoses Chest pain, unspecified type Gabriele Grayson Radiology Procedures XR CHEST 1 VW COVID CHEST 2 VIEWS MD Maxine [address] [facility] [id number] [place], [place] [id number] Reason for Visit Reason Comments Chest Pain Auth/Cert Status Reason Specialty Diagnoses / Referred By Referred To Procedures Contact Contact Emergency Medicine Ad[facility] Em ergency Dept [address] [place] [address] Fax: Encounter Details Date Type Department Care Team Description 08/21/2019 Emergency ADC-Emergency Gabriele Grayson S, Acute bro nchitis, unspecified organism (Primary Dx); Department Chest pain, unspecified type; [address] [place] [address] Dr Leon [facility] Acute cystitis without hemat uria; [place] [address] [id number] Hypertension, unspecified type; [phone] [place], [place] Transaminitis; [address] Chronic anemia; [phone] Suspected 2019 Novel Coronavirus Infecti on Allergies Active Allergy Reactions Severity Noted Date Comments Codeine Itching, Rash High 02/11/2013 documented as of this encounter (statuses as of 08/21/2019) Medications Medication Sig Dispensed Refills Start Date [...] tiZANidine 4 mg Take 4 mg by mouth 0 Active capsule 2 (two) times daily. CREON 36,000-114,000- Take [...] nausea, and Vomiting unspecified vomiting (N/V). type Nitrofurantoin&Nit. Take 1 capsule by 14 capsule 0 08/21/2019 Active Macrocryst (MACROBID) mouth 2 (two) 100 mg times daily. capsuleIndications: Acute cystitis without hematuria benzonatate 200 mg Take 1 capsule by 21 capsule 0 08/21/2019 Active capsuleIndications: mouth 3 (three) Acute bronchitis, times daily as unspecified organism needed for Cough. ondansetron (ZOFRAN) 4 Take 1 tablet by 12 tablet 0 08/21/2019 Active mg tabletIndications: mouth every 8 Acute bronchitis, (eight) hours as unspecified organism needed for Nausea and Vomiting (N/V). traMADol (ULTRAM) 50 Take 1 tablet by 20 tablet 0 08/21/2019 Active mg tabletIndications: mouth every 6 Acute bronchitis, (six) hours as unspecified organism needed for Pain (scale 7-10). albuterol 90 Inhale 2 Puffs 8.5 g 0 08/21/2019 A ctive mcg/actuation every 4 (four) inhalerIndications: hours as needed Acute bronchitis, for Wheezing, unspecified organism Shortness of Breath, Bronchospasm or Chest tightness. documented as of this encounter (statuses as of 08/21/2019) Active Problems Problem Noted Date Abdominal pain [...] as of this encounter (statuses as of 08/21/2019) Social History Tobacco Use Types Packs/Day Years [...] to pay for the very basics like [employer] hat hard 11/15/2018 food, housing, medical care, [...] Travel End No recent travel history available. COVID-19 Exposure Response Date Recorded In the last month, have you been in contact with No / Unsure 08/21/2019 7:29 PM CDT someone who was confirmed or suspected to have Coronavirus / COVID-19? documented as of this encounter Last Filed Vital Signs Vital Sign Reading Time Taken Comments Blood Pressure 159/99 08/21/2019 11:28 PM CDT Pulse 66 08/21/2019 11:28 PM CDT Temperature 36.6 C (97.9 F) 08/21/2019 7:48 PM CDT Respiratory Rate 18 08/21/2019 11:28 PM CDT Oxygen Saturation 95% 08/21/2019 11:28 PM CDT Inhaled Oxygen Concentration - - Weight 86.2 kg (190 lb) 08/21/2019 7:44 PM CDT Height 152.4 cm (5') 08/21/2019 7:44 PM CDT Body Mass Index 37.11 08/21/2019 7:44 PM CDT documented in this encounter Discharge Instructions Gabriele Maxwell MD - 08/21/2019 DIAGNOSIS Diagnoses that have been ruled out: None Diagnoses that are still under consideration: None Final diagnoses: Chest pain, unspecified type Acute bronchitis, unspecified organism Acute cystitis without hematuria Hypertension, unspecified type Transaminitis Chronic anemia Suspected 2019 Novel Coronavirus Infection NO LIFE-THREATENING FINDINGS ON TODAY'S EXAM. PROCEDURES IN THE ER TODAY: Orders Placed This Encounter Procedures XR CHEST 1 VW COVID TROPONIN I aPTT PROTHROMBIN TIME / INR COMP. METABOLIC PANEL (21432) LIPASE, SERUM CBC WITH DIFF URINALYSIS CBC WITH DIFFERENTIAL CORONAVIRUS COVID-19 TESTING MEDICATIONS ADMINISTERED IN THE ER TODAY AND DISCHARGE MEDICATIONS: Orders Placed This Encounter Medications benzonatate (TESSALON PERLES) capsule 200 mg FENTanyl PF (SUBLIMAZE (PF)) injection 50 mcg ondansetron (ZOFRAN (PF)) injection 4 mg FOLLOW-UP RECOMMENDATIONS: RECOMMEND FOLLOW-UP WITH A PRIMARY CARE PROVIDER OR SPECIALIST IN 2-5 DAYS, ESPECIALLY IF NO IMPROVEMENT IN SYMPTOMS. MAY FOLLOW-UP WITH A PROVIDER OF YOUR CHOICE, SUCH : 1. A PHYSICIAN OF YOUR CHOICE 2. [facility], . LOCATIONS IN [facility] 3. [facility], [address] [place] [address]; [phone] OR, IF YOU WISH TO FOLLOW-UP WITHIN THE [facility], MAY TRY THESE OPTIONS (CLINIC APPOINTMENTS AVAILABLE ON [id number] BASIS): 1. SCHEDULE AN APPOINTMENT ONLINE AT [email or web address] 2. OR CALL THE [facility] AT OR 3. OR CALL YOUR [facility] PHYSICIAN'S OFFICE DIRECTLY IF YOU ARE ALREADY AN ESTABLISHED [facility] PATIENT. RETURN TO ER FOR WORSENING OF SYMPTOMS documented in this encounter Plan of Treatment Health Maintenance Due Date Last Done Comments PNEUMOCOCCAL 0-64 YEARS COMBINED SERIES (1 of 1 - 1968 PPSV23) DTaP,Tdap,and Td Vaccines (1 - Tdap) 1973 PAP SMEAR 11/02/1983 Breast Cancer Screening (MAMMOGRAM) 2002 COLONOSCOPY 2012 Zoster Recombinant Vaccine (SHINGRIX) (1 of 2) 2012 INFLUENZA VACCINE (Season Ended) 2019 HEPATITIS C (HCV) SCREEN Completed 11/15/2018 documented as of this encounter Procedures Procedure Name Priority Date/Time Associated Diagnosis Comme nts XR CHEST 1 VW COVID STAT 08/21/2019 8:15 Chest pain, Resu lts for this PM CDT unspecified type procedure a re in the results section. CORONAVIRUS COVID-19 STAT 08/21/2019 8:00 Chest pain, Res ults for this TESTING PM CDT unspecified type procedure a re in the results section. CBC WITH DIFFERENTIAL STAT 08/21/2019 8:00 Chest pain, Re sults for this PM CDT unspecified type procedure a re in the results section. URINALYSIS STAT 08/21/2019 8:00 Chest pain, Results for this PM CDT unspecified type procedure a re in the results section. ACTIVATED PARTIAL STAT 08/21/2019 8:00 Chest pain, Result s for this THRMPLAS KIMANI PM CDT unspecified type procedure a re in the results section. PROTHROMBIN TIME / STAT 08/21/2019 8:00 Chest pain, Resul ts for this INR PM CDT unspecified type procedure a re in the results section. CBC WITH DIFFERENTIAL Routine 08/21/2019 8:00 Chest pain, Re sults for this PM CDT unspecified type procedure a re in the results section. COMP. METABOLIC PANEL STAT 08/21/2019 8:00 Chest pain, Re sults for this (43502) PM CDT unspecified type procedure a re in the results section. TROPONIN I STAT 08/21/2019 8:00 Chest pain, Results for this PM CDT unspecified type procedure a re in the results section. LIPASE STAT 08/21/2019 8:00 Chest pain, Results for this PM CDT unspecified type procedure a re in the results section. EKG-12 LEAD STAT 08/21/2019 7:52 PM CDT CONSENT/REFUSAL FOR Routine 08/21/2019 7:30 DIAGNOSIS AND PM CDT TREATMENT documented in this encounter Results XR CHEST 1 VW COVID (08/21/2019 8:15 PM CDT) Specimen Impressions Performed At PACS/VR/DOSE No findings suggestive of COVID-19 pneum onia. Disclaimer: Generally, the findings on c hest imaging in COVID-19 are not specific, and overlap with other infecti ons, including influenza, H1N1, SARS and MERS. According to the Centers for Disease Control (CDC) and the [employer], viral testing remains the only specific method of diagnosis even if CXR or CT findings are suggestiv e of COVID-19. Preliminary Report Dictated by Resident: Ritchie Malik MD., have reviewed thi s study and agree with the above report. Narrative Performed At PROCEDURE: CHEST XRAY PACS/VR/DOSE CLINICAL INDICATION: chest pain COMPARISON: Chest radiograph 02/23/2019 FINDINGS: The lungs are clear except for a subcentimeter calcifi ed granuloma at the right lung, unchanged. No pleural effusi on or pneumothorax is detected. The heart is mildly enlarged. No acute b ata abnormality. Procedure Note [facility], Radiant Results Inft User - 2019 9:18 PM CDT PROCEDURE: CHEST XRAY CLINICAL INDICATION: chest pain COMPARISON: Chest radiograph 02/23/2019 FINDINGS: The lungs are clear except for a subcent imeter calcified granuloma at the right lung, unchanged. No pleural effusi on or pneumothorax is detected. The heart is mildly enlarged. No acute b ata abnormality. IMPRESSION No findings suggestive of COVID-19 pneum onia. Disclaimer: Generally, the findings on c hest imaging in COVID-19 are not specific, and overlap with other infecti ons, including influenza, H1N1, SARS and MERS. According to the Centers for Disease Con trol (CDC) and the [employer], viral testing remains the only specific method of diagnosis even if CXR or CT findings are suggestiv e of COVID-19. Preliminary Report Dictated by Resident: Ritchie Malik MD., have reviewed this study and agree with the above report. Performing Organization Address City/[facility]/Zipcode Phone Number PACS/VR/DOSE CORONAVIRUS COVID-19 TESTING (08/21/2019 8:00 PM CDT) [facility] SARS-CoV-2 Not Detected Not Detected [facility] Specimen Swab - NASOPHARYNGEAL SWAB Narrative Performed At [facility] COVID-19 Assay is an isothermal nucleic [facility] acid amplification test intended for the qualitative detection of nucleic acid from SARS-CoV-2 viral RNA in nasopharyngeal ([employer]) specimens. It is used under Emergency Use Authorization (EUA) by FDA. The limit of detection (LOD) of the assay is 125 Genome Equivalents/mL. A positive result is indicative of the presence of SARS-CoV-2 RNA. Clinical correlation with patient history and other diagnostic information is necessary to determine patient infection status. A negative (Not Detected) result does not preclude SARS-CoV-2 infection. Clinical correlation with patient history and other diagnostic information should be used in patient management decisions. Invalid: Please collect a new specimen for repeat patient testing if clinically indicated. Performing Organization Address City/[facility]/Zipcode Phone Number [facility] CLIA: [id number], [address] [place] [address] CBC WITH DIFFERENTIAL (08/21/2019 8:00 PM CDT) [facility] WBC 3.48 (L) 4.30 - 11.10 [facility] 10*3/L [facility] RBC 3.42 (L) 3.93 - 5.25 [facility] 10*6/L [facility] HGB 10.4 (L) 11.6 - 15.0 [facility] g/dL [facility] HCT 32.5 (L) 35.7 - 45.2 % [facility] MCV 95.0 80.6 - 95.5 fL [facility] MCH 30.4 25.9 - 32.8 pg [facility] MCHC 32.0 31.6 - 35.1 [facility] g/dL [facility] RDW-SD 44.3 39.0 - 49.9 fL [facility] RDW-CV 12.6 12.0 - 15.5 % [facility] PLT 179 166 - 358 [facility] 10*3/L [facility] MPV 9.1 (L) 9.5 - 12.9 fL [facility] NRBC/100 WBC 0.0 0.0 - 10.0 /100 [facility] WBCs [facility] NRBC x10^3 <0.01 10*3/L [facility] GRAN MAT (NEUT) % 71.0 % [facility] IMM GRAN % 1.70 % [facility] LYMPH % 16.1 % [facility] MONO % 9.8 % [facility] EOS % 1.1 % [facility] BASO % 0.3 % [facility] GRAN MAT x10^3(ANC) 2.47 1.88 - 7.09 [facility] 10*3/uL [facility] IMM GRAN x10^3 0.06 0.00 - 0.06 [facility] 10*3/uL [facility] LYMPH x10^3 0.56 (L) 1.32 - 3.29 [facility] 10*3/uL [facility] MONO x10^3 0.34 0.33 - 0.92 [facility] 10*3/uL [facility] EOS x10^3 0.04 0.03 - 0.39 [facility] 10*3/uL [facility] BASO x10^3 <0.03 0.01 - 0.07 [facility] 10*3/uL [facility] Specimen Blood - VENOUS Performing Organization Address City/State/Zipcode Phone Number [facility] CLIA: [id number], [address], [place] [address] URINALYSIS (08/21/2019 8:00 PM CDT) Pathologist Sig nature APPEARANCE Hazy (A) Clear [facility] COLOR Romelia (A) Yellow [facility] PH 6.0 4.8 - 8.0 [facility] SP GRAVITY 1.020 1.003 - 1.030 [facility] GLU U QUAL Normal Normal [facility] BLOOD Negative Negative [facility] KETONES Negative Negative [facility] PROTEIN 30 mg/dL (A) Negative [facility] UROBILIN 4.0 mg/dL (A) Normal [facility] BILIRUBIN Negative Negative [facility] NITRITE Positive (A) Negative [facility] LEUK NICHOLE 500/uL (A) Negative [facility] RBC/HPF 6 (H) 0 - 3 HPF [facility] WBC/HPF 114 (H) 0 - 5 HPF [facility] BACTERIA Many (A) Negative [facility] MUCOUS Moderate (A) Negative LPF [facility] SQ EPITH 7 HPF [facility] Specimen Urine - URINE, CLEAN CATCH Performing Organization Address [facility] Phone Number [facility] CLIA: [id number], [address] [address] LIPASE, SERUM (08/21/2019 8:00 PM CDT) Pathologist Sig [employer] LIPASE 87 0 - 220 U/L [facility] Specimen Blood - VENOUS Performing Organization Address [facility] [place] Phone Number [facility] CLIA: [id number], [address] [address] COMP. METABOLIC PANEL (46013) (08/21/2019 8:00 PM CDT) Pathologist Sig nature NA 142 135 - 145 [facility] mmol/L [facility] K 4.1 3.5 - 5.0 [facility] mmol/L [facility] CL 106 98 - 108 mmol/L [facility] CO2 TOTAL 28 23 - 31 mmol/L [facility] AGAP 8 2 - 16 [facility] BUN 16 7 - 23 mg/dL [facility] GLUCOSE 141 (H) 70 - 110 mg/dL [facility] CREATININE 0.75 0.50 - 1.04 [facility] mg/dL [facility] TOTAL BILI 0.8 0.1 - 1.1 mg/dL [facility] CALCIUM 9.6 8.6 - 10.6 [facility] mg/dL [facility] T PROTEIN 7.8 6.3 - 8.2 g/dL [facility] ALBUMIN 4.1 3.5 - 5.0 g/dL [facility] ALK PHOS 664 (H) 34 - 122 U/L [facility] ALTv 82 (H) 5 - 35 U/L [facility] AST(SGOT) 111 (H) 13 - 40 U/L [facility] eGFR Calculation 79.9 mL/min/1.73m2 [facility] ([facility] Vietnamese) eGFR Calculation 96.9 mL/min/1.73m2 [facility] () [facility] Specimen Blood - VENOUS Narrative Performed At [facility] Glomerular Filtration Rate (GFR) [facility] and Staging of Kidney Disease* [...] abnormalities in imaging tests). Performing Organization Address City/[facility]/Zipcode Phone Number [facility] CLIA: [id number], [address] PROTHROMBIN TIME / INR (08/21/2019 8:00 PM CDT) PROTIME PATIENT 12.5 12.0 - 14.7 [facility] LABORATORY INR 1.0Comment: Normal [facility] INR <1.1; Warfarin [facility] Therapeutic range LABORATORY 2.0 to 3.0 or 2.5 to 3.5, depending upon the indications. Specimen Blood - VENOUS Performing Organization Address City/[facility]/Zipcode Phone Number [facility] CLIA: [id number], [address] aPTT (08/21/2019 8:00 PM CDT) Pathologist Sig nature APTT Patient 30 23 - 38 Seconds [facility] Specimen Blood - VENOUS Narrative Performed At The [facility] patient population mean normal value [facility] for aPTT is 30 seconds. Performing Organization Address [facility] Phone Number [facility] CLIA: [id number], [address], [place] [address] TROPONIN I (08/21/2019 8:00 PM CDT) Pathologist Sig nature TROPONIN I <0.012 <=0.034 ng/mL [facility] Specimen Blood - VENOUS Narrative Performed At Equal or Less than 0.034 ng/ml---Normal [facility] Note: Cardiac troponin begins to [...] patient's use of biotin. Performing Organization Address [facility] Phone Number [facility] CLIA: [id number], [address], [place] [address] [facility] documented in this encounter Visit Diagnoses Diagnosis Acute bronchitis, unspecified organism - Primary Chest pain, unspecified type Acute cystitis without hematuria Acute cystitis Hypertension, unspecified type Transaminitis Nonspecific elevation of levels of trans aminase or lactic acid dehydrogenase (LDH) Chronic anemia Anemia, unspecified Suspected 2019 Novel Coronavirus Infecti on documented in this encounter Administered Medications Medication Order MAR Action Action Date Dose Rate Site benzonatate (TESSALON PERLDINA) Given 08/21/2019 10:15 PM CDT 200 mg capsule 200 mg 200 mg, Oral, ONCE NOW, 1 dose, 08/21/19 at 2315, Routine cloNIDine (CATAPRES) tablet 0.2 mg Given 08/21/2019 11:00 PM CDT 0.2 mg 0.2 mg, Oral, ONCE, 1 dose, 08/22/19 at 0000, STAT FENTanyl PF (SUBLIMAZE (PF)) injection 50 Given 08/21/2019 10:15 PM CDT 50 mcg mcg 50 mcg, Slow IV Push, ONCE, 1 dose, 08/21/19 at 2315, Routine ondansetron (ZOFRAN (PF)) injection 4 mg Given 08/21/2019 10:15 PM CDT 4 mg 4 mg, Slow IV Push, ONCE, 1 dose, 08/21/19 at 2315, [place] documented in this encounter Insurance Payer Benefit Plan / Subscriber ID Effective Phone Address T ype Group Dates MEDICARE MEDICARE PART xxxxxxxxxxx 2015-e [phone] [address] [place] Medicare A & B nt [id number] CARA ADDISON [id number] CIGNA CIGNA II [id number] 2018-Prese HMO /PPO/POS nt documented as of this encounter Advance Directives Name Relationship Healthcare Agent Communication Relationship Puneet Aleman Spouse Primary healthcare agent [email or web address]
--- NOTE | 2019-09-15 00:54 | EDPHYS ---
Physician Documentation [facility] Name: Yessenia Aleman Age: 58 yrs Sex: Female : 1960 Arrival Date: 09/14/2019 Time: 19:20 Bed 20 Private MD: ED Physician Jesse Mallory HPI: 09/14 00:32 This 58 yrs old Female presents to ER via Ambulatory with complaints of Pain pkl With Urination. 00:32 The patient presents with urinary symptoms, dysuria, frequency, urgency. Onset: The pkl symptoms/episode began/occurred 3 day(s) ago. Historical: - Allergies: 09/13 19:36 Codeine; ll1 - PMHx: 19:36 Anxiety; Arthritis; biliary chirrosis; biliary disease; CHF; Chronic Pancreatitis; ll1 Hypertension; Pancreatitis; Pneumonia; - PSHx: 19:36 Cholecystectomy; Appendectomy; Tubal ligation; blie duct stenting x 5; ll1 - Immunization history:: Adult Immunizations up to date. - Social history:: Patient/guardian denies using alcohol, street drugs, tobacco products, Smoking status: Patient denies any tobacco usage or history of. ROS: 09/14 00:32 Positive for urinary symptoms, urinary frequency, burning with urination. pkl Eyes: Negative for injury, pain, redness, and discharge, ENT: Negative for injury, pain, and discharge, Neck: Negative for injury, pain, and swelling, Cardiovascular: Negative for chest pain, palpitations, and edema, Respiratory: Negative for shortness of breath, cough, wheezing, and pleuritic chest pain, Abdomen/GI: Negative for abdominal pain, nausea, vomiting, diarrhea, and constipation, Back: Negative for injury and pain, MS/Extremity: Negative for injury and deformity, Skin: Negative for injury, rash, and discoloration, Neuro: Negative for headache, weakness, numbness, tingling, and seizure. Exam: 00:32 Head/Face: Normocephalic, atraumatic. Eyes: Pupils equal round and reactive to light, pkl extra-ocular motions intact. Lids and lashes normal. Conjunctiva and sclera are non-icteric and not injected. Cornea within normal limits. Periorbital areas with no swelling, redness, or edema. ENT: Nares patent. No nasal discharge, no septal abnormalities noted. Tympanic membranes are normal and external auditory canals are clear. Oropharynx with no redness, swelling, or masses, exudates, or evidence of obstruction, uvula midline. Mucous membranes moist. Neck: Trachea midline, no thyromegaly or masses palpated, and no cervical lymphadenopathy. Supple, full range of motion without nuchal rigidity, or vertebral point tenderness. No Meningismus. Chest/axilla: Normal chest wall appearance and motion. Nontender with no deformity. No lesions are appreciated. Cardiovascular: Regular rate and rhythm with a normal S1 and S2. No gallops, murmurs, or rubs. Normal PMI, no JVD. No pulse deficits. Respiratory: Lungs have equal breath sounds bilaterally, clear to auscultation and percussion. No rales, rhonchi or wheezes noted. No increased work of breathing, no retractions or nasal flaring. 00:32 Abdomen/GI: Bowel sounds: normal, Palpation: soft, mild abdominal tenderness, in the suprapubic area. 00:32 Back: Exam negative for acute changes. 00:32 Musculoskeletal/extremity: Exam is negative for acute changes. 00:32 Skin: Exam negative for rash. 00:32 Neuro: Orientation: is normal, Mentation: is normal, Cranial nerves: grossly normal, Motor: is normal. Vital Signs: 09/13 19:32 BP 160 / 104; Pulse 90; Resp 18; Temp 98.5; Pulse Ox 98% ; Pain 7/10; ll1 MDM: 09/14 00:21 Patient medically screened. pkl 00:52 Data reviewed: vital signs, nurses notes, lab test result(s). pk 09/14 00:29 Order name: Urine Microscopic Only; Complete Time: 05:30 mg2 09/14 00:29 Order name: Urine Dipstick--Ancillary (enter results); Complete Time: 05:30 mt 09/14 00:29 Order name: Urine --Ancillary (enter results); Complete Time: 05:30 mt 09/14 00:30 Order name: Urine Culture pr 09/14 00:29 Order name: Urine Dipstick-Ancillary (obtain specimen); Complete Time: 00:29 mg2 09/14 00:29 Order name: Bladder Scanner; Complete Time: 00:51 mg2 09/14 00:29 Order name: Urine Test (obtain specimen); Complete Time: 00:50 mt Administered Medications: 01:00 Drug: morphine 4 mg Route: IM; Site: right gluteus; mg2 01:32 Follow up: Response: No adverse reaction mg2 01:00 Drug: Zofran (Ondansetron) 4 mg Route: PO; mg2 :32 Follow up: Response: No adverse reaction mg2 01:00 Drug: Cipro 500 mg Route: PO; mg2 01:32 Follow up: Response: No adverse reaction mg2 Disposition: 09/15/19 00:53 Discharged to Home. Impression: Cystitis. - Condition is Stable. - Prescriptions for Pyridium 200 mg Oral Tablet - take 1 tablet by ORAL route every 8 hours for 3 days; 9 tablet. Cipro 500 mg Oral Tablet - take 1 tablet by ORAL route every 12 hours for 7 days; 14 tablet. - Medication Reconciliation Form, Thank You Letter, Antibiotic Education, Prescription Opioid Use form. - Follow up: Private Physician; When: 2 - 3 days; Reason: Re-evaluation by your physician. - Problem is new. - Symptoms have improved. Signatures: Dispatcher [employer] EDMS Jesse Mallory MD MD pkl [facility] Kalpesh Farmer RN RN mg2 Cathryn Jordan RN RN ll1 Corrections: (The following items were deleted from the chart) 01:33 00:53 09/15/2019 00:53 Discharged to Home. Impression: Cystitis. Condition is Stable. mg2 Forms are Medication Reconciliation Form, Thank You Letter, Antibiotic Education, Prescription Opioid Use. Follow up: Private Physician; When: 2 - 3 days; Reason: Re-evaluation by your physician. Problem is new. Symptoms have improved. pkl
--- NOTE | 2019-09-15 00:54 | ER ---
Nurse's Notes [facility] Name: Yessenia Aleman Age: 58 yrs Sex: Female : 1960 Arrival Date: 09/14/2019 Time: 19:20 Bed 20 Private MD: Diagnosis: Cystitis Presentation: 09/13 19:32 Chief complaint: Patient states: Dysuria, oliguria with frequency for 3 days. No fever. ll1 Coronavirus screen: Proceed with normal triage. Patient denies a cough. Patient denies shortness of breath or difficulty breathing. Patient denies measured and/or subjective temperature greater than 100.4F prior to today's visit. Patient denies travel on a cruise ship or to a country the [facility] currently lists as an affected area. Patient denies contact with known and/or suspected case of COVID-19. Ebola Screen: Patient denies travel to an Ebola-affected area in the 21 days before illness onset. Initial Sepsis Screen: Does the patient meet any 2 criteria? HR > 90 bpm. No. Patient's initial sepsis screen is negative. Risk Assessment: Do you want to hurt yourself or someone else? Patient reports no desire to harm self or others. Onset of symptoms was September 12, 2019. 19:32 Method Of Arrival: Ambulatory 1 19:32 Acuity: HOLLI 3 ll1 09/14 00:52 Initial Sepsis Screen: Does the patient have a suspected source of infection? No. mg2 Patient's initial sepsis screen is negative. Historical: - Allergies: 09/13 19:36 Codeine; ll1 - PMHx: 19:36 Anxiety; Arthritis; biliary chirrosis; biliary disease; CHF; Chronic Pancreatitis; ll1 Hypertension; Pancreatitis; Pneumonia; - PSHx: 19:36 Cholecystectomy; Appendectomy; Tubal ligation; blie duct stenting x 5; ll1 - Immunization history:: Adult Immunizations up to date. - Social history:: Patient/guardian denies using alcohol, street drugs, tobacco products, Smoking status: Patient denies any tobacco usage or history of. Screenin/02 00:51 Abuse screen: Denies threats or abuse. Denies injuries from another. Nutritional mg2 screening: No deficits noted. Tuberculosis screening: No symptoms or risk factors identified. Fall Risk None identified. Assessment: 00:51 General: Appears in no apparent distress. comfortable, Behavior is calm, cooperative. mg2 Pain: Complains of pain in suprapubic area. Neuro: Level of Consciousness is awake, alert, obeys commands, Oriented to person, place, time, situation. Cardiovascular: Capillary refill < 3 seconds Patient's skin is warm and dry. Respiratory: Airway is patent Respiratory effort is even, unlabored, Respiratory pattern is regular, symmetrical. GI: Reports nausea. : Reports burning with urination, urinary frequency. EENT: No signs and/or symptoms were reported regarding the EENT system. Derm: Skin is intact, is healthy with good turgor, Skin is pink, warm \T\ dry. normal. Musculoskeletal: Circulation, motion, and sensation intact. Capillary refill < 3 seconds. Vital Signs: 09/13 19:32 BP 160 / 104; Pulse 90; Resp 18; Temp 98.5; Pulse Ox 98% ; Pain 7/10; ll1 ED Course: 19:20 Patient arrived in ED. cl3 19:34 Triage completed. ll1 19:36 Arm band placed on Patient notified of wait time. ll1 09/14 00:21 Jesse Mallory MD is Attending Physician. pkl 00:28 Kalpesh Farmer RN is Primary Nurse. mg2 00:51 No provider procedures requiring assistance completed. Bladder scan completed. 182 ml. mg2 Patient did not have IV access during this emergency room visit. 00:52 Patient has correct armband on for positive identification. mg2 Administered Medications: 01:00 Drug: morphine 4 mg Route: IM; Site: right gluteus; mg2 01:32 Follow up: Response: No adverse reaction mg2 01:00 Drug: Zofran (Ondansetron) 4 mg Route: PO; mg2 01:32 Follow up: Response: No adverse reaction mg2 01:00 Drug: Cipro 500 mg Route: PO; mg2 01:32 Follow up: Response: No adverse reaction mg2 Outcome: 00:53 Discharge ordered by . pkl 01:20 Discharged to home ambulatory. mg2 01:20 Condition: stable 01:20 Discharge instructions given to patient, Instructed on discharge instructions, follow mg2 up and referral plans. medication usage, Demonstrated understanding of instructions, follow-up care, medications, Prescriptions given X 2. 01:33 Patient left the ED. mg2 Addendum: 09/18/2019 07:16 Addendum: Culture Results: Positive urine culture. No further action required. Bacteria e b sensitive to prescribed antibiotic. Signatures: Jesse Mallory MD MD pkl Botello, Elizabeth eb Gardose, Michele RN RN mg2 Joan Jordan3 Cathryn Jordan RN RN ll1
[2019-09-15 01:04] LABS: Urine Culture Reflex Order NOT NEEDED
[2019-09-15] MEDS ORDERED: CIPROFLOXACIN HCL 500 MG TAB ONE (01:05)
[2019-09-15] MEDS ORDERED: ONDANSETRON 4 MG (ODT) TAB ONE (01:05)
[2019-09-15] MEDS ORDERED: MORPHINE 4 MG/ML SYR ONE (01:05)
[2019-09-15 01:10] LABS: Urine Bacteria <20 /HPF (<20); Urine RBC <5 /HPF (NONE SEEN); Urine Urothelial Cells <5 /HPF (NONE SEEN)
[2019-09-15 01:10] LABS: Urine Blood TRACE (NEG); Urine Glucose NEGATIVE (NEG); Urine Protein NEGATIVE (NEG); Urine Specific Gravity 1.025 (1.005-1.030); Urine pH 6.5 (5.0-7.0)
[2019-09-15 01:45] VITALS: BP 160/104; TEMP 98.5; O2SAT 98
== END 2019-09-15 01:33 | disposition home or self-care (01) ==
LOC: ER 19:18
DX: N30.90 Cystitis, unspecified without hematuria (principal); Z88.6 Allergy status to analgesic agent
CPT/HCPCS: 81003; 81015; 81025; 87077; 87086; 87088; 87186; 96372; 99283

== ENCOUNTER 2019-09-28 18:39 | Emergency (ER) | payer OTHER ==
--- OUTSIDE RECORDS SUMMARY | 2019-09-28 20:20 | XMS REPORT | Continuity of Care Document ---
:1960 Author Organization [facility] t Address [address] [place] [address] Care Team Providers Name Role Phone Maxine [...] Date Date Treatment Clinician Date Anxiety Anxiety Problem [facility] Gastroesop Gastroesop Problem Active [facility] hageal hageal [facility] - reflux reflux Memoria disease disease l without without Outpati esophagiti esophagiti en t s s Clinics Essential Essential Problem Active [facility] hypertensi hypertensi Shari kes - on on [facility] Out[facility] ent Clinics Grieving Grieving Problem [facility] Osteoarthr Osteoarthr Problem Active [facility] itis itis [facility] - involving involving Germain shawn multiple multiple l joints on joints on Outp ati both sides both sides en t of body of body Clinics Moderately Moderately Problem Active [facility] severe severe [facility] - depression depression Me moria l [facility] ent [facility] Chronic Chronic Problem Active [facility] pancreatit pancreatit Shari kes - is, is, Memoria unspecifie unspecifie l d d [facility] pancreatit pancreatit en t is type is type Clinics Primary Primary Problem Active [facility] insomnia insomnia kes - [facility] ent [facility] Iron Iron Problem Active [facility] deficiency deficiency Shari kes - anemia, anemia, Memoria unspecifie unspecifie l d iron d iron [facility] deficiency deficiency en t anemia anemia Clinics type type Seasonal Seasonal Problem Active [facility] t allergies allergies ke s - Memoria [facility] Allergies, Adverse Reactions, Alerts This patient has no known allergies or adverse reactions. Medications Ordered Filled Start Stop Current Ordering Indication Dosage Frequency Signature Comments Components Source Medication Medication Date Date Medication? Clinician (SIG) Name Name Losartan Losartan Yes Na Slade [address] [address] Potassium Potassium [facility] ent Clinics Lexapro Lexapro Yes Na Slade [address] [facility] Seroquel XR Seroquel XR Yes Na Slade [address] [address] [facility] Phenergan Phenergan Yes Na Slade one tablet [facility] ent [facility] Doxycycline Doxycycline Yes Na Slade [address] Hyclate Hyclate [facility] ent Clinics Azithromyci Azithromyci Yes Na Slade [address] n n on the [facility] - first day, Memoria then 1 l tablet Outpati daily for ent 4 days Clinics Robaxin-750 Robaxin-750 Yes Na Slade [address] [facility] ent Clinics Flonase Flonase Yes Na Slade [address] each [facility] - nostril Memoria l [facility] ent Clinics Diazepam Diazepam Yes Na Slade [address] as needed [facility] ent Clinics PredniSONE PredniSONE Yes Na Slade [...] [facility] - MOUTH Memoria EVERY DAY l Outpati ent Clinics Procedures This patient has no known procedures. Encounters Start End Encounter Admission Attending Care Care Encounter Source Date/Time Date/Time Type Type Clinicians Facility Department ID 2019-09-17 2019-09-17 [place] [facility] [id number] [address] 10:24:00 10:24:00 [employer] [facility] Medicine Medicine Outpati ent Clinics 2019-08-21 2019-08-21 Emergency [facility], [facility] [id number] 19:42:19 23:51:00 Gabriele Guidry [id number] [place] 4.2.7.2.686 [place] [address] [id number] 2019-07-14 2019-07-14 Out[facility] [id number] 15:00:00 15:00:00 [employer] [facility] Medicine Outpati ent [facility] 2019-06-25 2019-06-25 Emergency Asaf, [facility] [id number] 16:52:11 20:04:00 Grisel Guidry [id number] [place] 4.2.7.2.686 [place] [address] [id number] 2019-06-19 2019-06-19 [facility] [id number] 13:58:11 19:09:00 Skyler Guidry [id number] [place] 4.2.7.2.686 [place] [address] [id number] 2019-06-19 2019-06-19 Orders Doctor HAMMER [id number] 00:00:00 00:00:00 Only Unassigned, KATHIE 350.1.13.10 [place] [facility] 4.2.7.2.686 [id number] [id number] 2019-05-19 2019-05-[address] , [facility] [id number] 18:29:04 21:26:00 Gary Guidry [id number] [place] 4.2.7.2.686 [place] [id number] 2019-03-02 2019-03-02 [facility] [id number] [address] 10:40:00 10:40:00 [employer] [facility] 2019-02-04 2019-02-04 [facility] [id number] 10:55:00 10:55:00 t Cary [employer] [place] [facility] 2018-12-24 2018-12-[address] [facility] [id number] 00:00:00 00:00:00 [facility] [id number] [facility] 4.2.7.2.686 [facility] [id number] Obdulia Guidry 2018-10-07 2018-10-07 [facility] [id number] 11:00:00 11:00:00 [facility] [employer] [facility] Clin[facility] 2018-07-28 2018-07-28 [facility] [id number] 09:57:00 09:57:00 [facility] [employer] [facility] 2018-07-25 2018-07-25 [facility] [id number] 14:40:00 14:40:00 [facility] Results Test Description Test Time Test Comments Results Result Comments Source Culture, Urine 2017-08-07 15:57:00 Test Item Value Reference Range Interpretation Comme nts Culture, Urine (test code = URC) NF Culture, Urine (test code = URC1) 10 NSF * This is a n EDITED result. * A prior result th at was reported as final has been change d. [id number] 22:53:00 Test Item Value Reference Range Interpretation [...] = UACAST) CAST LPF Urine Source: Urine [id number] SURGICAL PATHOLOGY, LEVEL [id number] 14:31:[address] [address] Laboratory Printed: 07/09/17 2201 [facility] DAEMPathology Page: 1 Patient: ZEKE ROMERO Birthdate: 1960 Age/Sex: 56/F Spec#: [id number]: HERMES SALAZAR Specimen Date: 07/08/17 [...] Pathologist:Kelvin Conway Entered by:07/09/17 - 1429 PROCEDURES: 21040,60712/4 Patient: ZEKE ROMERO Re07/03/17Loc: T4-A MR#: [id number] CONTINUED ON NEXT PAGE Dis: 07/09/17ta: DIS IN - [address] [address] Laboratory Printed: 07/09/[address] [place] [address] [facility] Page: 2 Patient: ZEKE ROMERO [id number] (Continued) GROSS DESCRIPTION A. LIVER BIOPSY LEFT LOBE The specimen is received in 10%formalin, and is labeled with the patient's name and "liverbiopsy". The specimen consists of three cores of snow soft tissue ranging from 0.7 to 2.1 cmin length, and each one measures less than 0.1 cm in diameter. The entire specimen issubmitted in one cassette. Dictated by: SKYE SHAHIDUL Entered by:07/08/17 - 1316 LAB.YGP MICROSCOPIC DESCRIPTION A microscopic examination was performed to arrive at the diagnostic conclusion reported. Signed ___ ____(Electronically Signed) Kelvin 07/09/17 Patient: ZEKE ROMERO Re07/03/17Loc: T4-A MR#: [id number] END OF REPORT Dis: 07/09/17ta: DIS [id number] 05:13:00 Test Item Value Reference Range Interpretation [...] U/L 8-55 H = ALT) Reference Lab [id number] 04:14:00 Test Item Value Reference Range Interpretation Comments Reference Lab 10 U/mL 0-35 Laurent ECLIA Testing (test code methodolo gyPerformed at: HD = CA199) - [facility] wx[address] [place], [place] [id number] Di aimee: Chico Suero MD, Phone : [phone] Reference Lab [id number] 16:14:00 Test Item Value Reference Range Interpretation Comments Reference Lab Testing 128.5 Units 0.0-20.0 H (test code = MARLON) Negative 0.0 - 20.0 Equivocal 20.1 - 24.9 Positive >24.9Mitochondr ial (M2) Antibodies are found in 90-96% ofpatients with primary biliary cirrhosis.Perfo rmed at: [address] [id number] Director: Pj Rider MD, [facility] ne: [phone] Reference Lab [id number] 16:14:00 Test Item Value Reference Range Interpretation [...] testing of p ositive sera with both TN-3 and MPO-ANCA enzyme immunoassays. A s many as 5% serumsamples are positive only b y EIA. Ref. AM J Clin Nzougr4246;111: 507-513. Reference Lab <1:20 titer Neg:<1:20 The atypical p ANCA pattern Testing (test has been obser chelita in code = ATANCA) asignificant percentage of patients with u lcerative colitis,primary sclerosing cholangitis and autoimmune hepatitis.Perfo rmed at: [facility] [id number] Di aimee: Chester ramírez MD, Phone: [phone] Pbzmcmejb2755-94-53 05:12:00 Test Item Value Reference Range Interpretation [...] 8-55 H code = ALT) Reference Lab [id number] 22:07:00 Test Item Value Reference Range Interpretation Comments Reference Lab Testing 785 IU/L 39-117 H (test code = ISOALKT) Reference Lab Testing 25 % 14-68 (test code = ISOALKBT) Reference Lab Testing 74 % 18-85 (test code = ISOALKLT) Reference Lab Testing 1 % 0-18 Perfor med at: HD - (test code = ISOALKIT) [facility] [address] [id number] Director: Chico Suero MD, Phone: [phone] [facility] at: [address] [id number] Di aimee: Chester ramírez MD, Phone: [phone] Pvncntybs1264-03-14 11:48:00 Test Item Value Reference Range Interpretation [...] code = ALT) 92 U/L 8-55 H Yugkapzxx5982-14-02 06:08:00 Test Item Value Reference Range Interpretation [...] 8.5 mg/dL 7.8-10.44 N code = CA) Vkmjecdfo4046-53-97 06:06:00 Test Item Value Reference Range Interpretation [...] code = ALT) 129 U/L 8-55 H Ghtxdbytcj9011-03-38 05:57:00 Test Item Value Reference Range Interpretation [...] code = BASO#) 0.0 thou/uL 0.0-0.2 N Fnqkpjnursg9505-91-60 05:55:00 Test Item Value Reference Range Interpretation [...] - 4. 0 CRITICAL: > 4.0 Anticoagulant? XHHSHujwiekha4429-43-19 05:36:00 Test Item Value Reference Range Interpretation [...] 8.9 mg/dL 7.8-10.44 N code = CA) Wzlyunkdp0972-21-03 05:33:00 Test Item Value Reference Range Interpretation [...] code = ALT) 160 U/L 8-55 H Ggcoyxhprf2012-56-37 05:28:00 Test Item Value Reference Range Interpretation [...] 0.1 thou/uL 0.0-0.2 N Chemistry - Elizabeth Nymuwhd9547-31-88 13:02:00 Test Item Value Reference Range Interpretation Comments Chemistry - lEizabeth Negative Negative Testing (test code = ANASC) [...] hod: Enzyme Linked Fluorescent Immunoassay (Elizabeth)Reference s: [employer] Elizabeth Package [employer]s - Directions for se, June,August 02, AeroSurgical ic. Qcpyzpqki4138-62-43 05:00:00 Test Item Value Reference Range Interpretation [...] code = ALT) 144 U/L 8-55 H Eqnbloine6367-64-48 04:50:00 Test Item Value Reference Range Interpretation [...] 8.4 mg/dL 7.8-10.44 N code = CA) Ldonvrjiso1890-69-70 04:39:00 Test Item Value Reference Range Interpretation [...] code = BASO#) 0.0 thou/uL 0.0-0.2 N Iykcbmkza6810-43-17 17:07:00 Test Item Value Reference Range Interpretation Comments Chemistry (test code = IGG) 1032.00 mg/dL 552-1631 N Cysdhjsbh0935-39-97 17:07:00 Test Item Value Reference Range Interpretation Comments Chemistry (test code = IGM) 215.00 mg/dL 33-293 N Dmthqwiddg6463-41-75 00:50:00 Test Item Value Reference Range Interpretation [...] UABLD) Urine Source: Urine Clean [employer] - Rnbrjjlv6939-63-84 00:25:00 Test Item Value Reference Range Interpretation Comments Chemistry - Specials (test Non-Reactive NonReactive code = THEPAIGM) Chemistry - Specials (test Non-Reactive S/CO NonReactive code = THBSAG) Chemistry - Specials (test Non-Reactive NonReactive code = INTHBCM) Chemistry - Specials (test Non-Reactive NonReactive code = INTHEPC) [id number] 22:12:00 Test Item Value Reference Range Interpretation [...] code 196 U/L 8-55 H = ALT) Txabhfoey7012-94-07 22:12:00 Test Item Value Reference Range Interpretation Comments Chemistry (test code = LIP) 22 U/L 8-78 N Ejgojflhju5399-12-64 21:50:00 Test Item Value Reference Range Interpretation [...] code = BASO#) 0.1 thou/uL 0.0-0.2 N Fksmwzvdp9383-76-90 22:49:00 Test Item Value Reference Range Interpretation [...] 78 U/L 8-55 H code = ALT) Hkjzylzbr5817-71-90 22:49:00 Test Item Value Reference Range Interpretation Comments Chemistry (test code = LIP) 12 U/L 8-78 N Wykuhysjjr1477-88-68 22:24:00 Test Item Value Reference Range Interpretation [...] code = BASO#) 0.0 thou/uL 0.0-0.2 N Nibmvpitzi0374-24-39 22:00:00 Test Item Value Reference Range Interpretation [...] UABLD) Negative Negative Urine Source: Urine Clean CjamnIfmddhvn2730-28-13 09:28:00 Test Item Value Reference Range Interpretation Comments Accuchek (test code = ACU) 99 mg/dL 70-110 N Xnetdycvml9715-55-35 09:14:00 Test Item Value Reference Range Interpretation [...] UABLD) Negative Negative Urine Source: Urine Clean GfqozFhvunomxbl3760-26-58 21:28:00 Test Item Value Reference Range Interpretation [...] UABLD) Negative Negative Urine Source: Urine Clean ZnixyEahhcjuvg4674-44-96 21:09:00 Test Item Value Reference Range Interpretation [...] 95 U/L 8-55 H code = ALT) Btwetwipk7786-68-43 21:09:00 Test Item Value Reference Range Interpretation Comments Chemistry (test code = LIP) 39 U/L 8-78 N Matcrqzptr8058-56-78 20:49:00 Test Item Value Reference Range Interpretation [...] code = BASO#) 0.0 thou/uL 0.0-0.2 N Fskxuqjmav1891-00-81 21:34:00 Test Item Value Reference Range Interpretation [...] desired. Presu mptive positive urines are held [facility]. Urine Source: Urine Clean NijncWrurkacvwj4118-09-82 19:17:00 Test Item Value Reference Range Interpretation [...] = UABLD) Negative Negative Urine Source: Urine QqpsylTkfcypbaa3520-44-73 18:48:00 Test Item Value Reference Range Interpretation [...] code 84 U/L 8-55 H = ALT) Aouxcwvwu5111-38-13 18:48:00 Test Item Value Reference Range Interpretation Comments Chemistry (test code = JORGE) 53.0 U/L 25-125 N Ihdtrfqfq7905-11-36 18:48:00 Test Item Value Reference Range Interpretation Comments Chemistry (test code = LIP) 10 U/L 8-78 N [id number] 18:19:00 Test Item Value Reference Range Interpretation [...] = BASO#) 0.1 thou/uL 0.0-0.2 N Culture, Lzhak1530-43-85 10:22:00 Test Item Value Reference Range Interpretation Comments Culture, Urine (test code = URC) NF N Culture, Urine (test code = URC1) 10 MSF N [id number] 17:38:00 Test Item Value Reference Range Interpretation Comments Chemistry (test code = PHOS) 2.9 mg/dL 2.3-4.7 N Zrtfnnawc1982-87-66 17:04:00 Test Item Value Reference Range Interpretation [...] H = ALT) Chemistry - BNP, HgbA1c, [id number] 17:04:00 Test Item Value Reference Range Interpretation Comments Chemistry - BNP, 4.9 % 4.0-6.0 N Therapeutic goals for glycemic HgbA1c, PTHi (test control ( ADA)Adults:- Goal of code = OCSA1ZY) therapy: Les s than 7.0% HbA1c- Action suggeste d: Greater than 8.0% UtP9cOftnj tric patients:- Toddlers and pr eschoolers: Less than 8.5% (but Greater than 7.5%)- Katelynn ool age (6-12 years): Less th an 8%- Adolescents and young adults (13-19 years): Less than 7.5%Diagnosing diabetes (ADA)- HbA1c: Greater than or equal to 6.5% Values of 5.7 - 6.4% indicate HIGH risk for developing DiabetesInterna tional Expert Committee Repor t on the Role of the M0TXoedr in the Diagnosis of Di abetes. Diabetes Care 2009July;32(7): 1327-1334ADA, Diagnosis cla ssification of diabetes [facility].Diabetes Care 2010; 33 S uppl 1:S62 Hiqrxukaq7885-79-89 16:59:00 Test Item Value Reference Range Interpretation Comments Chemistry (test code = CRP) 1.16 mg/dL = or < 0.5 H What test does the doctor want? C-REACTIVE PROTEIN (CRP)Nowikifibl5299-90-49 16:53:00 Test Item Value Reference Range Interpretation [...] HPF None Seen Urine Source: Urine Clean VcscgZyjtuuyzzo7862-50-39 16:46:00 Test Item Value Reference Range Interpretation [...] code = BASO#) 0.1 thou/uL 0.0-0.2 N Ohiquglopj4703-60-16 21:59:00 Test Item Value Reference Range Interpretation [...] Urine Clean CatchSepsis - Lactic Acid >2 Bwjd1306-73-23 23:59:00 Test Item Value Reference Range Interpretation Comments Sepsis - Lactic Additional Lactate testin g will be Acid >2 Rflx performed in 3 hrs (test code = according to kenny YVPIR4Z) SepsisProtocol. Wzewpajem0951-27-50 21:12:00 Test Item Value Reference Range Interpretation Comments Chemistry (test code = JORGE) 59.0 U/L 25-125 N Vqjgzexei1214-32-79 20:59:00 Test Item Value Reference Range Interpretation [...] 87 U/L 8-55 H code = ALT) Ftoutajop9898-00-14 20:59:00 Test Item Value Reference Range Interpretation Comments Chemistry (test code = LIP) 32 U/L 8-78 N Chemistry - Ouxkdlu3927-83-71 20:59:00 Test Item Value Reference Range Interpretation Comments Chemistry - Lactate (test code = 2.1 mmol/L 0.5-2.2 N LACTSEP-T) Amecuflqfs9296-46-93 20:43:00 Test Item Value Reference Range Interpretation [...] = UABLD) Negative Negative Urine Source: Urine NotjbxLoypznwuet0313-86-26 20:37:00 Test Item Value Reference Range Interpretation [...]
--- OUTSIDE RECORDS SUMMARY | 2019-09-28 20:20 | XMS REPORT ---
[...] End Status Dosage System Date Date Lexapro [facility] 17404651159 20 MG Orally Active 1 table t Once a day Seroquel XR ND 49011767864 300 MG Orally Active 1 tablet Once a day in the evening Diazepam ND 79135086691 5 MG Orally Active 1 table t Once a day prn as needed panic attacks Flonase [facility] 06732975975 50 MCG/ACT Active 2 spray i n Nasally Once a each day nostril Losartan ND 96149476781 100 MG Orally Active 1 tab let Potassium Once a day Doxycycline ND 81548956889 100 MG Orally Active 1 capsule Hyclate twice a day Azithromycin [facility] 27679183629 250 MG Orally Active 2 tablets Once a day on the first day, then 1 tablet daily for 4 days PredniSONE [facility] 56467974337 10 MG Orally Active 2 ta blet Once a day daily x 5 days then one tablet daily x 5 days Gabapentin [facility] 60541765629 300 MG Orally Active 1 c apsule Once a day Losartan [facility] 36162705584 100 MG Active TAKE 1 Potassium TABLET BY MOUTH EVERY DAY Robaxin-750 [facility] 28630877795 750 MG Orally Active 1 tablet every 4 hrs Phenergan [facility] [address]-84 25mg Po Q 12 Active one tablet hours Results Name Result Date Reference Range Unit Abnormali ty Flag Iron and TIBC ----Iron Bind.Cap.(TIBC) 378 20190714 250-450 ug/dL ----UIBC 314 65488612 131-425 ug/dL ----Iron 64 45151214 27-159 ug/dL ----Iron Saturation 17 59324552 15-55 % CBC With Differential/Platelet ----MCHC 31.5 38560118 31.5-35.7 g/dL ----MCH 30.3 68717891 26.6-33.0 pg ----Platelets 274 23908850 150-450 x10E3/uL ----RDW 14.2 04599692 11.7-15.4 % ----Immature Granulocytes 0 63987685 Not Estab. % ----Immature Grans (Abs) 0.0 25001263 0.0-0.1 x10E3/uL ----Lymphs 28 99422124 Not Estab. % ----Monocytes 8 22780719 Not Estab. % ----Neutrophils 62 55168233 Not Estab. % ----Neutrophils (Absolute) 4.1 81178527 1.4-7.0 x10E3/uL ----Hematocrit 37.1 46516881 34.0-46.6 % ----Lymphs (Absolute) 1.8 87833951 0.7-3.1 x10E3/uL ----MCV 96 04640629 79-97 fL ----Eos 2 21405705 Not Estab. % ----RBC 3.86 70073669 3.77-5.28 x10E6/uL ----Basos 0 78013869 Not Estab. % ----Hemoglobin 11.7 20190714 11.1-15.9 g/dL ----Baso (Absolute) 0.0 71548745 0.0-0.2 x10E3/uL ----WBC 6.7 20190714 3.4-10.8 x10E3/uL ----Monocytes(Absolute) 0.5 52576926 0.1-0.9 x10E3/uL ----Eos (Absolute) 0.1 60886592 0.0-0.4 x10E3/uL Summary Purpose eClinicalWorks Submission
--- OUTSIDE RECORDS SUMMARY | 2019-09-28 20:21 | XMS REPORT ---
[...] unspecified D50.9 Active iron deficiency anemia type Problem Chronic pancreatitis, unspecified K86.1 Active pancreatitis type Problem Seasonal allergies J30.2 Active Problem Essential hypertension I10 Activ e Problem Anxiety F41.9 Active Problem Primary insomnia F51.01 Active Problem Gastroesophageal reflux disease K21.9 Active without esophagitis Medications No Known Medications Results No Known Results Summary Purpose eClinicalWorks Submission
[2019-09-28] MEDS ORDERED: FENTANYL CITR 100 MCG/2 ML ONE (20:27)
[2019-09-28] MEDS ORDERED: NA CHLORIDE 0.9% 1,000 ML ONE (20:29)
[2019-09-28] MEDS ORDERED: ONDANSETRON 4 MG/2 ML VIAL ONE (20:29)
[2019-09-28 20:52] LABS: Absolute Lymphocytes (CBC) 1.2 K/uL (0.7-4.9); Basophils % 0.5 % (0-1.3); Hematocrit 34.3 % (36.0-45.0); Lymphocytes % 27.7 % (15.3-44.8); MPV 8.2 fL (7.6-11.3)
[2019-09-28 20:55] LABS: Urine Blood NEGATIVE (NEG); Urine Glucose NEGATIVE (NEG); Urine Protein NEGATIVE (NEG); Urine Specific Gravity >1.030 (1.005-1.030); Urine pH 6.5 (5.0-7.0)
[2019-09-28 20:58] LABS: Albumin 3.4 g/dL (3.4-5.0); Bilirubin Direct 0.7 mg/dL (0-0.2); Bilirubin Total 0.9 mg/dL (0.2-1.0); Potassium 3.9 mmol/L (3.5-5.1); Protein, Total 8.4 g/dL (6.4-8.2)
--- NOTE | 2019-09-28 21:31 | RAD REPORT ---
EXAM DESCRIPTION: CT - Abdomen Pelvis W Contrast - 09/28/2019 9:13 pm CLINICAL HISTORY: ABD PAIN COMPARISON: Abdomen Pelvis W Contrast dated 08/11/2019 TECHNIQUE: Biphasic, helical CT imaging of the abdomen and pelvis was performed following 100 ml non -ionic IV contrast. No oral contrast given. All CT scans are performed using dose optimization technique as appropriate and may include automated exposure control or mA/KV adjustment according to patient size. FINDINGS: No suspicious findings in the lung bases. The liver, spleen, and pancreas show no suspicious findings. Cholecystectomy clips are present. No bi liary tree dilatation. Minimal pneumobilia present. Symmetric renal function is seen with no hydronephrosis or suspicious renal mass. No pyelonephritis o r acute parenchymal process. No bladder abnormalities. No adrenal abnormalities. Uterus and ovaries s how no suspicious findings. No dilated bowel loops or bowel wall thickening. Moderate stool volume is seen throughout the colon. Appendectomy clips are present. No acute or active bowel process identifiable. No free air, free fluid or inflammatory stranding. No hernia, mass or bulky lymphadenopathy. Disc and bony degenerative changes are present. IMPRESSION: Contrast enhanced CT abdomen and pelvis showing no acute or emergent finding.
--- NOTE | 2019-09-28 22:30 | EDPHYS ---
Physician Documentation [facility] Name: Yessenia Aleman Age: 58 yrs Sex: Female : 1960 Arrival Date: 09/28/2019 Time: 18:43 Bed 7 Private MD: ED Physician Mateusz Fritz HPI: 09/27 20:17 This 58 yrs old Female presents to ER via Ambulatory with complaints of tw4 Abdominal Pain. 20:17 The patient presents with abdominal pain. tw4 20:17 Onset: The symptoms/episode began/occurred 3 day(s) ago. The symptoms radiate to right tw4 back. Associated signs and symptoms: none. The symptoms are described as sharp. Modifying factors: The symptoms are alleviated by nothing, the symptoms are aggravated by movement. Severity of pain: At its worst the pain was moderate in the emergency department the pain is unchanged. The patient has not experienced similar symptoms in the past. Historical: - Allergies: 20:30 Codeine; rv - PMHx: 20:30 Pancreatitis; rv - Immunization history:: Adult Immunizations up to date. - Social history:: Smoking status: unknown. ROS: 20:17 Constitutional: Negative for fever, chills, and weight loss, Eyes: Negative for injury, tw4 pain, redness, and discharge, Cardiovascular: Negative for chest pain, palpitations, and edema, Respiratory: Negative for shortness of breath, cough, wheezing, and pleuritic chest pain, Back: Negative for injury and pain. 20:17 Abdomen/GI: Positive for abdominal pain, nausea and vomiting, nausea, vomiting, Negative for anorexia, dysphagia, hematemesis, black/tarry stool, rectal pain, rectal bleeding, bowel incontinence. Exam: 20:17 Constitutional: This is a well developed, well nourished patient who is awake, alert, tw4 and in no acute distress. Head/Face: Normocephalic, atraumatic. Chest/axilla: Normal chest wall appearance and motion. Nontender with no deformity. No lesions are appreciated. Cardiovascular: Regular rate and rhythm with a normal S1 and S2. No gallops, murmurs, or rubs. Normal PMI, no JVD. No pulse deficits. Respiratory: Lungs have equal breath sounds bilaterally, clear to auscultation and percussion. No rales, rhonchi or wheezes noted. No increased work of breathing, no retractions or nasal flaring. Abdomen/GI: Soft, non-tender, with normal bowel sounds. No distension or tympany. No guarding or rebound. No evidence of tenderness throughout. Back: No spinal tenderness. No costovertebral tenderness. Full range of motion. MS/ Extremity: Pulses equal, no cyanosis. Neurovascular intact. Full, normal range of motion. Neuro: Awake and alert, GCS 15, oriented to person, place, time, and situation. Cranial nerves II-XII grossly intact. Motor strength 5/5 in all extremities. Sensory grossly intact. Cerebellar exam normal. Normal gait. Vital Signs: 19:27 BP 122 / 94; Pulse 91; Resp 14; Temp 97.9; Pulse Ox 96% on R/A; Weight 81.65 kg; Height vc 5 ft. 0 in. (152.40 cm); Pain 8/10; 21:30 BP 149 / 89; Pulse 77; Resp 16; Pulse Ox 96% on R/A; rv 22:36 BP 159 / 99; Pulse 72; Resp 16; Temp 98; Pulse Ox 99% on R/A; rv 19:27 Body Mass Index 35.15 (81.65 kg, 152.40 cm) vc MDM: 20:10 Patient medically screened. tw4 20:17 Data reviewed: vital signs, nurses notes. Data interpreted: Pulse oximetry: 4 Interpretation: normal. 09/27 19:37 Order name: Basic Metabolic Panel; Complete Time: 21:51 [facility] 09/27 21:51 Interpretation: Within normal limits. tw 09/27 19:37 Order name: CBC with Diff; Complete Time: 22:27 tw 09/27 22:27 Interpretation: Normal except: WBC 4.2; HGB 11.6; RBC 3.70; HCT 34.3. tw 09/27 19:37 Order name: Hepatic Function; Complete Time: 21:51 [facility] 09/27 21:51 Interpretation: Normal except: AST 196; ALT 274; ALK 961; BILID 0.7; TP 8.4; GLOB 5.0; tw4 A/G 0.7. 09/27 19:37 Order name: Lipase; Complete Time: 21:52 tw 09/27 21:52 Interpretation: Within normal limits: LIP 221. tw4 09/27 20:20 Order name: Urine Dipstick--Ancillary (enter results); Complete Time: 21:48 2 09/27 21:50 Interpretation: Normal except: USPGR >1.030; UKET 1+. [facility] 09/27 19:37 Order name: IV Saline Lock; Complete Time: 20:14 [facility] 09/27 19:37 Order name: Labs collected and sent; Complete Time: 20:14 [facility] 09/27 19:37 Order name: Urine Dipstick-Ancillary (obtain specimen); Complete Time: 20:14 [facility] 09/27 20:31 Order name: CT Abd/Pelvis - IV Contrast Only; Complete Time: 21:52 [facility] 09/27 22:27 Order name: Hepatitis Panel tw4 Administered Medications: 20:24 Drug: fentaNYL (PF) 50 mcg {Note: RASS 0.} Route: IVP; Site: left antecubital; rv 21:45 Follow up: Response: No adverse reaction; Pain is unchanged, physician notified; RASS: rv Alert and Calm (0) 20:24 Drug: Zofran (Ondansetron) 4 mg Route: IVP; Site: left antecubital; rv 21:46 Follow up: Response: Marked relief of symptoms rv 21:45 Drug: fentaNYL (PF) 50 mcg {Note: rass 0.} Route: IVP; Site: left antecubital; rv 22:37 Follow up: Response: No adverse reaction; Marked relief of symptoms; Pain is decreased; rv RASS: Alert and Calm (0) Disposition: 09/28/19 22:28 Discharged to Home. Impression: Abdominal tenderness. - Condition is Stable. - Discharge Instructions: Abdominal Pain, Adult, [id number]. - Prescriptions for Bentyl 20 mg Oral Tablet - take 1 tablet by ORAL route every 6 hours As needed; 20 tablet. Protonix 40 mg Oral Tablet - take 1 tablet by ORAL route once daily; 30 tablet. - Medication Reconciliation Form, Thank You Letter, Antibiotic Education, Prescription Opioid Use form. - Follow up: Private Physician; When: Upon discharge from the Emergency Department; Reason: Recheck today's complaints, Continuance of care, Re-evaluation by your physician. - Problem is new. - Symptoms have improved. Signatures: Dispatcher [employer] Mateusz Leavitt MD MD tw4 Darshan Chaparro, RN RN rv Corrections: (The following items were deleted from the chart) 22:37 22:28 09/28/2019 22:28 Discharged to Home. Impression: Abdominal tenderness. Condition rv is Stable. Forms are Medication Reconciliation Form, Thank You Letter, Antibiotic Education, Prescription Opioid Use. Follow up: Private Physician; When: Upon discharge from the Emergency Department; Reason: Recheck today's complaints, Continuance of care, Re-evaluation by your physician. Problem is new. Symptoms have improved. tw4
--- NOTE | 2019-09-28 22:30 | ER ---
Nurse's Notes [facility] Name: Yessenia Aleman Age: 58 yrs Sex: Female : 1960 Arrival Date: 09/28/2019 Time: 18:43 Bed 7 Private MD: Diagnosis: Abdominal tenderness Presentation: 09/27 19:27 Chief complaint: Patient states: "FOR THE LAST 3 DAYS IM HAVING PAIN IN MY STOMACH THAT vc GOES AROUND TO MY UPPER BACK, THE MIDDLE OF MY SHOULDER BLADE AND AROUND TO MY LEFT BREAST. I HAVE A HISTORY OF PANCREATITIS, I ALSO THOUGHT MAYBE I HAVE A UTI BECAUSE MY URINE IS A DARK BROWN.". Coronavirus screen: Proceed with normal triage. Patient denies a cough. Patient reports shortness of breath or difficulty breathing. Patient denies measured and/or subjective temperature greater than 100.4F prior to today's visit. Patient denies travel on a cruise ship or to a country the [facility] currently lists as an affected area. Patient denies contact with known and/or suspected case of COVID-19. Ebola Screen: No symptoms or risks identified at this time. Initial Sepsis Screen: Does the patient meet any 2 criteria? No. Patient's initial sepsis screen is negative. Does the patient have a suspected source of infection? No. Patient's initial sepsis screen is negative. Risk Assessment: Do you want to hurt yourself or someone else? Patient reports no desire to harm self or others. Onset of symptoms was September 25, 2019. 19:27 Method Of Arrival: Ambulatory vc 19:27 Acuity: HOLLI 3 vc Historical: - Allergies: 20:30 Codeine; rv - PMHx: 20:30 Pancreatitis; rv - Immunization history:: Adult Immunizations up to date. - Social history:: Smoking status: unknown. Screenin:30 Abuse screen: Denies threats or abuse. Denies injuries from another. Nutritional rv screening: No deficits noted. Tuberculosis screening: No symptoms or risk factors identified. Fall Risk None identified. Assessment: 20:28 General: Appears uncomfortable, Behavior is calm, cooperative. Pain: Complains of pain rv in RUQ PAIN. Neuro: Level of Consciousness is awake, alert, obeys commands, Oriented to person, place, time, situation. Cardiovascular: Patient's skin is warm and dry. Respiratory: Airway is patent. GI: Bowel sounds present X 4 quads. Abd is soft and non tender X 4 quads. Derm: Skin is intact. Vital Signs: 19:27 BP 122 / 94; Pulse 91; Resp 14; Temp 97.9; Pulse Ox 96% on R/A; Weight 81.65 kg; Height vc 5 ft. 0 in. (152.40 cm); Pain 8/10; 21:30 BP 149 / 89; Pulse 77; Resp 16; Pulse Ox 96% on R/A; rv 22:36 BP 159 / 99; Pulse 72; Resp 16; Temp 98; Pulse Ox 99% on R/A; rv 19:27 Body Mass Index 35.15 (81.65 kg, 152.40 cm) vc ED Course: 18:43 Patient arrived in ED. bp1 19:30 Triage completed. vc 19:37 Mateusz Fritz MD is Attending Physician. tw4 20:13 Darshan Chaparro RN is Primary Nurse. rv 20:20 Inserted saline lock: 20 gauge in left antecubital area, using aseptic technique. Blood mt collected. 20:30 No provider procedures requiring assistance completed. rv 20:30 Patient has correct armband on for positive identification. Pulse ox on. NIBP on. rv 20:30 Arm band placed on right wrist. Patient placed in the treatment room, on a stretcher, rv Patient notified of wait time. 21:13 CT Abd/Pelvis - IV Contrast Only In Process Unspecified. EDMS 22:37 IV discontinued, intact, bleeding controlled, No redness/swelling at site. Pressure rv dressing applied. Administered Medications: 20:24 Drug: fentaNYL (PF) 50 mcg {Note: RASS 0.} Route: IVP; Site: left antecubital; rv 21:45 Follow up: Response: No adverse reaction; Pain is unchanged, physician notified; RASS: rv Alert and Calm (0) 20:24 Drug: Zofran (Ondansetron) 4 mg Route: IVP; Site: left antecubital; rv 21:46 Follow up: Response: Marked relief of symptoms rv 21:45 Drug: fentaNYL (PF) 50 mcg {Note: rass 0.} Route: IVP; Site: left antecubital; rv 22:37 Follow up: Response: No adverse reaction; Marked relief of symptoms; Pain is decreased; rv RASS: Alert and Calm (0) Outcome: 22:28 Discharge ordered by . tw4 22:37 Discharged to home ambulatory. rv 22:37 Condition: good 22:37 Discharge instructions given to patient, Instructed on discharge instructions, follow up and referral plans. medication usage, Demonstrated understanding of instructions, follow-up care, medications, Prescriptions given X 2. 22:37 Patient left the ED. rv Signatures: Dispatcher [employer] EDMS Maria Guadalupe Harris mt, Terrence, MD MD tw4 Darshan Chaparro RN RN Rosana Finnegan RN RN Alice Michael [facility]
[2019-09-28 23:11] VITALS: BP 159/99; TEMP 98; O2SAT 99
[2019-10-02 14:51] LABS: HBsAG Nonreactive (Nonreactive)
== END 2019-09-28 22:37 | disposition home or self-care (01) ==
LOC: ER 18:39
DX: R10.819 Abdominal tenderness, unspecified site (principal); Z88.5 Allergy status to narcotic agent
CPT/HCPCS: 85025; 80048; 36415; 80076; 81003; 83690; 80074; 74177; 96375; 96374; 99284; Q9967; J3010; J7030; J2405

== ENCOUNTER 2019-10-18 16:05 | Emergency (ER) | payer OTHER ==
--- OUTSIDE RECORDS SUMMARY | 2019-10-18 16:12 | XMS REPORT ---
[...] Date Date Lexapro [facility] 14041900112 20 MG Orally Active 1 table t Once a day Seroquel XR ND 39009028801 300 MG Orally Active 1 tablet Once a day in the evening Diazepam ND 60310261182 5 MG Orally Active 1 table t Once a day prn as needed panic attacks Flonase [facility] 17163822185 50 MCG/ACT Active 2 spray i n Nasally Once a each day nostril Losartan ND 57519318684 100 MG Orally Active 1 tab let Potassium Once a day Doxycycline ND 02528073101 100 MG Orally Active 1 capsule Hyclate twice a day Azithromycin [facility] 39430369276 250 MG Orally Active 2 tablets Once a day on the first day, then 1 tablet daily for 4 days PredniSONE [facility] 44949250962 10 MG Orally Active 2 ta blet Once a day daily x 5 days then one tablet daily x 5 days Gabapentin [facility] 93439769523 300 MG Orally Active 1 c apsule Once a day Losartan [facility] 81330090142 100 MG Active TAKE 1 Potassium TABLET BY MOUTH EVERY DAY Robaxin-750 [facility] 89637211393 750 MG Orally Active 1 tablet every 4 hrs Phenergan [facility] [address]-14 25mg Po Q 12 Active one tablet hours Results Name Result Date Reference Range Unit Abnormali ty Flag Iron and TIBC ----Iron Bind.Cap.(TIBC) 378 [id number] 250-450 ug/dL ----UIBC 314 [id number] 131-425 ug/dL ----Iron 64 34363600 27-159 ug/dL ----Iron Saturation 17 86343832 15-55 % CBC With Differential/Platelet ----MCHC 31.5 47047551 31.5-35.7 g/dL ----MCH 30.3 [id number] 26.6-33.0 pg ----Platelets 274 [id number] 150-450 x10E3/uL ----RDW 14.2 14766246 11.7-15.4 % ----Immature Granulocytes 0 [id number] Not Estab. % ----Immature Grans (Abs) 0.0 [id number] 0.0-0.1 x10E3/uL ----Lymphs 28 [id number] Not Estab. % ----Monocytes 8 [id number] Not Estab. % ----Neutrophils 62 65842081 Not Estab. % ----Neutrophils (Absolute) 4.1 [id number] 1.4-7.0 x10E3/uL ----Hematocrit 37.1 43424435 34.0-46.6 % ----Lymphs (Absolute) 1.8 [id number] 0.7-3.1 x10E3/uL ----MCV 96 72998132 79-97 fL ----Eos 2 [id number] Not Estab. % ----RBC 3.86 67007962 3.77-5.28 x10E6/uL ----Basos 0 [id number] Not Estab. % ----Hemoglobin 11.7 20190714 11.1-15.9 g/dL ----Baso (Absolute) 0.0 [id number] 0.0-0.2 x10E3/uL ----WBC 6.7 20190714 3.4-10.8 x10E3/uL ----Monocytes(Absolute) 0.5 [id number] 0.1-0.9 x10E3/uL ----Eos (Absolute) 0.1 [id number] 0.0-0.4 x10E3/uL Summary Purpose eClinicalWorks Submission
--- OUTSIDE RECORDS SUMMARY | 2019-10-18 16:12 | XMS REPORT | Continuity of Care Document ---
:1960 Author Organization [facility] t Address [address] [place] [address] Care Team Providers Name Role Phone Maxine [...] Shari kes - on on [facility] Grieving G[facility]ing [facility] Osteoarthr Osteoarthr Problem Active [facility] itis itis [facility] - involving involving Germain shawn multiple multiple l joints on joints on Outp ati both sides both sides en t of body of body Clinics 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[facility] severe severe [facility] - depression depression Me moria l [facility] Chronic Chronic Diagnosis Active [facility] pancreatit pancreatit Shari kes - is, is, Memoria unspecifie unspecifie l d d [facility] pancreatit pancreatit en t is type is type Clinics Primary Primary Problem Active [facility] insomnia insomnia kes - [facility] Iron Iron Problem Active [facility] deficiency deficiency Shari kes - anemia, anemia, Memoria unspecifie unspecifie l d iron d iron [facility] deficiency deficiency en t anemia anemia Clinics type type Seasonal Seasonal Diagnosis Active [facility] allergies allergies Luke s - Memoria [facility] Nonadheren Nonadheren Diagnosis Active [facility] ce to ce to [facility] - medication medication [facility] Elevated Elevated Diagnosis Active [facility] liver liver [facility] - enzymes enzymes [facility] Tremor Tremor Diagnosis Active [facility] Canker Canker Diagnosis Active [facility] sores oral sores oral Shari kes - Memoria [facility] Allergies, Adverse Reactions, Alerts This patient has no known allergies or adverse reactions. Medications Ordered Filled Start Stop Current Ordering Indication Dosage Frequency Signature Comments Components Source Medication Medication Date Date Medication? Clinician (SIG) Name Name Chlorhexidi Chlorhexidi 2020-0 2020- Yes Na Slade [address] [address] ne ne 6 06-30 swish and [facility] - Gluconate Gluconate 00:00: 00:00 spit Tx moria 00 :00 [facility] Losartan Losartan Yes Na Slade [address] [facility] Potassium Potassium [facility] - [facility] Lexapro Lexapro Yes Na Slade [address] kes - Memoria [facility] Seroquel XR Seroquel XR Yes Na Slade [address] Phenergan Phenergan Yes Na Slade one tablet [facility] Doxycycline Doxycycline Yes Na Slade [address] [address] Hyclate Hyclate [facility]ics Azithromyci Azithromyci Yes Na Slade [...] Date/Time Type Type Clinicians Facility Department ID 2019-10-06 2019-10-06 [facility] [id number] 10:40:00 10:40:00 [facility] Medicine l Medicine Outpati ent Clinics 2019-09-17 2019-09-17 [facility] [id number] 10:24:00 10:24:00 t S[facility] Medicine l Medicine Outpati ent Clinics 2019-08-21 2019-08-21 Emergency [facility] [id number] 19:42:19 23:51:00 Gabriele Guidry [id number] [place] 4.2.7.2.686 [place] [id number] 2019-07-14 2019-07-14 [facility] [id number] 15:00:00 15:00:00 t efish [place] [facility] [facility] Family Medicine l Medicine Outpati ent Clinics 2019-06-25 2019-06-25 Emergency [facility] [id number] 16:52:11 20:04:00 Grisel Guidry [id number] [place] 4.2.7.2.686 [place] [id number] 2019-06-19 2019-06-19 Emergency [facility] [id number] 13:58:11 19:09:00 Skyler Guidry [id number] [place] 4.2.7.2.686 [place] [id number] 2019-06-19 2019-06-19 Orders Doctor JAQUELIN [id number] 00:00:00 00:00:00 Only Unassigned, KATHIE 350.1.13.10 [place] [facility] 4.2.7.2.686 [id number] 2019-05-19 2019-05-19 Emergency [facility] [id number] 18:29:04 21:26:00 Gary Guidry [id number] [place] 4.2.7.2.686 [place] [id number] 2019-03-02 2019-03-02 [facility] [id number] [address] 10:40:00 10:40:00 t [place] Mowdo [employer] s - [facility] 2019-02-04 2019-02-04 [facility] [id number] 10:55:00 10:55:00 t Syncronex [employer] s - [employer] [facility] 2018-12-24 2018-12-24 [facility] [id number] 00:00:00 00:00:00 [facility] [id number] Surgical 4.2.7.2.686 Special [id number] hazel Guidry 2018-10-07 2018-10-07 [facility] [id number] 11:00:00 11:00:00 t [place] Mowdo [employer] s - [employer] [facility] 2018-07-28 2018-07-28 [facility] [id number] 09:57:00 09:57:00 t [place] zerved s - Drive [facility] 2018-07-25 2018-07-25 [facility] [id number] 14:40:00 14:40:00 t [place] Mowdo [place] [employer] [facility] Results Test Description Test Time Test Comments Results Result Comments Source Culture, Urine 2017-08-07 15:57:00 Test Item Value Reference Range Interpretation Comme nts Culture, Urine (test code = URC) NF Culture, Urine (test code = URC1) 10 NSF * This is a n EDITED result. * A prior result th at was reported as final has been change d. [id number] 22:53:00 Test Item Value Reference Range Interpretation [...] = UACAST) CAST LPF Urine Source: Urine [id number] SURGICAL PATHOLOGY, LEVEL [id number] 14:31:[address] [address] Laboratory Printed: 07/09/[address] [place] [address] DAEMPathology Page: 1 Patient: ZEKE ROMERO Birthdate: 1960 Age/Sex: 56/F Spec#: [id number]: HERMES SALAZAR Specimen Date: 07/08/17 [...] few neutrophils. Pathologist:Kelvin Conway Entered by:07/09/17 - 1430 MAY PROCEDURES: 20500,89740/4 Patient: ZEKE ROMERO Re07/03/17Loc: T4-A MR#: [id number] CONTINUED ON NEXT PAGE Dis: 07/09/17ta: DIS IN - [address] [address] Laboratory Printed: 07/09/[address] [place] [address] DAEMPathology Page: 2 Patient: ZEKE ROMERO [id number] (Continued) GROSS DESCRIPTION A. LIVER BIOPSY LEFT [...] by: DANII SHAHID Entered by:07/08/17 - 1316 [facility].YGP MICROSCOPIC DESCRIPTION A microscopic examination was performed to arrive at the diagnostic conclusion reported. Signed ___ ____(Electronically Signed) Kelvin 07/09/17 Patient: ZEKE ROMERO Re07/03/17Loc: T4-A MR#: [id number] END OF REPORT Dis: 07/09/17ta: DIS [id number] 05:13:00 Test Item Value Reference Range Interpretation [...] U/L 8-55 H = ALT) Reference Lab [id number] 04:14:00 Test Item Value Reference Range Interpretation Comments Reference Lab 10 U/mL 0-35 Laurent ECLIA Testing (test code methodolo gyPerformed at: HD = CA199) - [facility] [address] [facility] [place] [id number] Di aimee: Chico Suero MD, Phone : [phone] Reference Lab [id number] 16:14:00 Test Item Value Reference Range Interpretation Comments Reference Lab Testing 128.5 Units 0.0-20.0 H (test code = MARLON) Negative 0.0 - 20.0 Equivocal 20.1 - 24.9 Positive >24.9Mitochondr ial (M2) Antibodies are found in 90-96% ofpatients with primary biliary cirrhosis.Perfo rmed at: [facility] [address] [place], [place] [id number] Director: Pj Rider MD, [facility] ne: [phone] Reference Lab [id number] 16:14:00 Test Item Value Reference Range Interpretation [...] testing of p ositive sera with both DE-3 and MPO-ANCA enzyme immunoassays. A s many as 5% serumsamples are positive only b y EIA. Ref. AM J Clin Oehwua1435;111: 507-513. Reference Lab <1:20 titer Neg:<1:20 The atypical p ANCA pattern Testing (test has been obser chelita in code = ATANCA) asignificant percentage of patients with u lcerative colitis,primary sclerosing cholangitis and autoimmune hepatitis.Perfo rmed at: [facility] [address] [place], [place] [id number] Di aimee: Chester ramírez MD, Phone: [phone] [id number] 05:12:00 Test Item Value Reference Range Interpretation [...] 8-55 H code = ALT) Reference Lab [id number] 22:07:00 Test Item Value Reference Range Interpretation Comments Reference Lab Testing 785 IU/L 39-117 H (test code = ISOALKT) Reference Lab Testing 25 % 14-68 (test code = ISOALKBT) Reference Lab Testing 74 % 18-85 (test code = ISOALKLT) Reference Lab Testing 1 % 0-18 Perfor med at: HD - (test code = ISOALKIT) [facility] [address] [id number] Director: Chico Suero MD, Phone: [phone] [facility] at: [facility] [id number] Di aimee: Chester ramírez MD, Phone: [phone] [id number] 11:48:00 Test Item Value Reference Range Interpretation [...] code = ALT) 92 U/L 8-55 H [id number] 06:08:00 Test Item Value Reference Range Interpretation [...] 8.5 mg/dL 7.8-10.44 N code = CA) [id number] 06:06:00 Test Item Value Reference Range Interpretation [...] code = ALT) 129 U/L 8-55 H [id number] 05:57:00 Test Item Value Reference Range Interpretation [...] code = BASO#) 0.0 thou/uL 0.0-0.2 N [id number] 05:55:00 Test Item Value Reference Range Interpretation [...] - 4. 0 CRITICAL: > 4.0 Anticoagulant? [id number] 05:36:00 Test Item Value Reference Range Interpretation [...] 8.9 mg/dL 7.8-10.44 N code = CA) [id number] 05:33:00 Test Item Value Reference Range Interpretation [...] code = ALT) 160 U/L 8-55 H [id number] 05:28:00 Test Item Value Reference Range Interpretation [...] 0.1 thou/uL 0.0-0.2 N Chemistry - Elizabeth Viwycys1778-38-33 13:02:00 Test Item Value Reference Range Interpretation [...] hod: Enzyme Linked Fluorescent Immunoassay (Elizabeth)Reference s: [employer] Elizabeth Package Inserts - Directions forU se, June,August 02, [employer] ic. [id number] 05:00:00 Test Item Value Reference Range Interpretation [...] code = ALT) 144 U/L 8-55 H [id number] 04:50:00 Test Item Value Reference Range Interpretation [...] 8.4 mg/dL 7.8-10.44 N code = CA) Aljetyschl7225-49-98 04:39:00 Test Item Value Reference Range Interpretation [...] code = BASO#) 0.0 thou/uL 0.0-0.2 N Rilozvnpr6585-43-75 17:07:00 Test Item Value Reference Range Interpretation Comments Chemistry (test code = IGG) 1032.00 mg/dL 552-1631 N [id number] 17:07:00 Test Item Value Reference Range Interpretation Comments Chemistry (test code = IGM) 215.00 mg/dL 33-293 N [id number] 00:50:00 Test Item Value Reference Range Interpretation [...] UABLD) Urine Source: Urine Clean [employer]atch[employer] - Qaahviin2011-22-47 00:25:00 Test Item Value Reference Range Interpretation Comments Chemistry - Specials (test Non-Reactive NonReactive code = THEPAIGM) Chemistry - Specials (test Non-Reactive S/CO NonReactive code = THBSAG) Chemistry - Specials (test Non-Reactive NonReactive code = INTHBCM) Chemistry - Specials (test Non-Reactive NonReactive code = INTHEPC) [id number] 22:12:00 Test Item Value Reference Range Interpretation [...] code 196 U/L 8-55 H = ALT) Ghpntvler2230-56-38 22:12:00 Test Item Value Reference Range Interpretation Comments Chemistry (test code = LIP) 22 U/L 8-78 N Hdwzgusamn5722-72-52 21:50:00 Test Item Value Reference Range Interpretation [...] code = BASO#) 0.1 thou/uL 0.0-0.2 N Ocidpuadn8245-46-85 22:49:00 Test Item Value Reference Range Interpretation [...] 78 U/L 8-55 H code = ALT) [id number] 22:49:00 Test Item Value Reference Range Interpretation Comments Chemistry (test code = LIP) 12 U/L 8-78 N Aziprudhdj6898-33-19 22:24:00 Test Item Value Reference Range Interpretation [...] code = BASO#) 0.0 thou/uL 0.0-0.2 N [id number] 22:00:00 Test Item Value Reference Range Interpretation [...] UABLD) Negative Negative Urine Source: Urine Clean PvpnvZtqvlfol0377-00-33 09:28:00 Test Item Value Reference Range Interpretation Comments Accuchek (test code = ACU) 99 mg/dL 70-110 N Fwvvzikher7885-90-44 09:14:00 Test Item Value Reference Range Interpretation [...] UABLD) Negative Negative Urine Source: Urine Clean PgecjQpqqshubjy7776-18-45 21:28:00 Test Item Value Reference Range Interpretation [...] UABLD) Negative Negative Urine Source: Urine Clean QxfrdBlctwwzeb4401-27-61 21:09:00 Test Item Value Reference Range Interpretation [...] 95 U/L 8-55 H code = ALT) [id number] 21:09:00 Test Item Value Reference Range Interpretation Comments Chemistry (test code = LIP) 39 U/L 8-78 N [id number] 20:49:00 Test Item Value Reference Range Interpretation [...] code = BASO#) 0.0 thou/uL 0.0-0.2 N Kqqhprezme7685-55-08 21:34:00 Test Item Value Reference Range Interpretation [...] desired. Presu mptive positive urines are [facility]. Urine Source: Urine Clean [id number] 19:17:00 Test Item Value Reference Range Interpretation [...] = UABLD) Negative Negative Urine Source: Urine NdiwcvXeolinneq7065-08-79 18:48:00 Test Item Value Reference Range Interpretation [...] code 84 U/L 8-55 H = ALT) [id number] 18:48:00 Test Item Value Reference Range Interpretation Comments Chemistry (test code = JORGE) 53.0 U/L 25-125 N Wpdiaczeg8665-69-12 18:48:00 Test Item Value Reference Range Interpretation Comments Chemistry (test code = LIP) 10 U/L 8-78 N [id number] 18:19:00 Test Item Value Reference Range Interpretation [...] = BASO#) 0.1 thou/uL 0.0-0.2 N Culture, [id number] 10:22:00 Test Item Value Reference Range Interpretation Comments Culture, Urine (test code = URC) NF N Culture, Urine (test code = URC1) 10 MSF N [id number] 17:38:00 Test Item Value Reference Range Interpretation Comments Chemistry (test code = PHOS) 2.9 mg/dL 2.3-4.7 N [id number] 17:04:00 Test Item Value Reference Range Interpretation [...] H = ALT) Chemistry - BNP, HgbA1c, [id number] 17:04:00 Test Item Value Reference Range Interpretation Comments Chemistry - BNP, 4.9 % 4.0-6.0 N Therapeutic goals for glycemic HgbA1c, PTHi (test control ( ADA)Adults:- Goal of code = PKKC2SW) therapy: Les s than 7.0% HbA1c- Action suggeste d: Greater than 8.0% QpF4zXotle tric patients:- Toddlers and pr eschoolers: Less than 8.5% (but Greater than 7.5%)- Katelynn ool age (6-12 years): Less th an 8%- Adolescents and young adults (13-19 years): Less than 7.5%Diagnosing diabetes (ADA)- HbA1c: Greater than or equal to 6.5% Values of 5.7 - 6.4% indicate HIGH risk for developing DiabetesInterna tional Expert Committee Repor t on the Role of the Q5YKgjku in the Diagnosis of Di abetes. Diabetes Care 2009July;32(7): 1327-1334ADA, Diagnosis cla ssification of diabetes [facility].Diabetes Care 2010; 33 S uppl 1:S62 [id number] 16:59:00 Test Item Value Reference Range Interpretation Comments Chemistry (test code = CRP) 1.16 mg/dL = or < 0.5 H What test does the doctor want? C-REACTIVE PROTEIN (CRP)[id number] 16:53:00 Test Item Value Reference Range Interpretation [...] HPF None Seen Urine Source: Urine Clean RwcxcGpsmumvydo3082-04-21 16:46:00 Test Item Value Reference Range Interpretation [...] code = BASO#) 0.1 thou/uL 0.0-0.2 N [id number] 21:59:00 Test Item Value Reference Range Interpretation [...] Urine Clean CatchSepsis - Lactic Acid >2 [id number] 23:59:00 Test Item Value Reference Range Interpretation Comments Sepsis - Lactic Additional Lactate testin g will be Acid >2 Rflx performed in 3 hrs (test code = according to alrfed cox [id number]) SepsisProtocol. [id number] 21:12:00 Test Item Value Reference Range Interpretation Comments Chemistry (test code = JORGE) 59.0 U/L 25-125 N [id number] 20:59:00 Test Item Value Reference Range Interpretation [...] 87 U/L 8-55 H code = ALT) [id number] 20:59:00 Test Item Value Reference Range Interpretation Comments Chemistry (test code = LIP) 32 U/L 8-78 N Chemistry - [id number] 20:59:00 Test Item Value Reference Range Interpretation Comments Chemistry - Lactate (test code = 2.1 mmol/L 0.5-2.2 N LACTSEP-T) [id number] 20:43:00 Test Item Value Reference Range Interpretation [...] = UABLD) Negative Negative Urine Source: Urine [id number] 20:37:00 Test Item Value Reference Range Interpretation [...]
--- OUTSIDE RECORDS SUMMARY | 2019-10-18 16:13 | XMS REPORT ---
[...] D50.9 Active iron deficiency anemia type Assessment Nonadherence to medication Z91.14 A ctive Problem Chronic pancreatitis, unspecified K86.1 Active pancreatitis type Problem Seasonal allergies J30.2 Active Problem Essential hypertension I10 Activ e Problem Anxiety F41.9 Active Problem Primary insomnia F51.01 Active Problem Gastroesophageal reflux disease K21.9 Active without esophagitis Assessment Seasonal allergies J30.2 Active Assessment Elevated liver enzymes R74.8 Activ e Assessment Gastroesophageal reflux disease K21.9 Active without esophagitis Assessment Anxiety F41.9 Active Assessment Tremor R25.1 Active Assessment 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 Active Assessment Chronic pancreatitis, unspecified K86.1 Active pancreatitis type Assessment Essential hypertension I10 Activ e Assessment 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 Medications Medication Code Code Instructions Start End Status Dosage System Date Date Seroquel XR [facility] 06038991277 300 MG Orally Active 1 tablet Once a day in the evening Lexapro [facility] 74508984435 20 MG Orally Active 1 table t Once a day Flonase [facility] 53614428788 50 MCG/ACT Active 2 spray Nasally Once a in each day nostril Robaxin-750 [facility] 59738630153 750 MG Orally Active 1 tablet every 4 hrs Losartan [facility] 58754776704 100 MG Active TAKE 1 Potassium TABLET BY MOUTH EVERY DAY Phenergan [facility] [address]-55 25mg Po Q 12 Active one hours tablet Doxycycline ND 30168934277 100 MG Orally Active 1 capsule Hyclate twice a day Diazepam [facility] 53378008631 5 MG Orally Active 1 table t Once a day prn as needed panic attacks Gabapentin ND 01985700455 300 MG Orally Active 1 c apsule Once a day PredniSONE ND 36171777721 10 MG Orally Active 2 ta blet Once a day daily x 5 days then one tablet daily x 5 days Losartan ND 02454329655 100 MG Orally Active 1 tab let Potassium Once a day Chlorhexidine [facility] 96552463391 0.12 % Mouth October 05September Active 15 ML Gluconate twice a day 2019 and 2019 spit Azithromycin ND 69174454529 250 MG Orally Active 2 tablets Once a day on the first day, then 1 tablet daily for 4 days Results No Known Results Summary Purpose eClinicalWorks Submission
[2019-10-18] MEDS ORDERED: FENTANYL CITR 100 MCG/2 ML ONE ×2 (16:53→18:18)
[2019-10-18] MEDS ORDERED: ONDANSETRON 4 MG/2 ML VIAL ONE (16:54)
[2019-10-18] MEDS ORDERED: NA CHLORIDE 0.9% 1,000 ML ONE (16:54)
[2019-10-18 17:00] LABS: Absolute Lymphocytes (CBC) 1.2 K/uL (0.7-4.9); Basophils % 0.6 % (0-1.3); Hematocrit 34.5 % (36.0-45.0); Lymphocytes % 22.1 % (15.3-44.8); MPV 7.6 fL (7.6-11.3); RBC Red Blood Cell Count 3.72 M/uL (3.86-4.86)
[2019-10-18 17:15] LABS: Albumin 3.9 g/dL (3.4-5.0); Bilirubin Direct 0.7 mg/dL (0-0.2); Bilirubin Total 1.1 mg/dL (0.2-1.0); Potassium 3.8 mmol/L (3.5-5.1)
--- NOTE | 2019-10-18 19:10 | RAD REPORT ---
EXAM DESCRIPTION: CT - Abdomen Pelvis W Contrast - 10/18/2019 6:31 pm CLINICAL HISTORY: ABD PAIN COMPARISON: Abdomen Pelvis W Contrast dated 09/28/2019 TECHNIQUE: Biphasic, helical CT imaging of the abdomen and pelvis was performed following 100 ml non -ionic IV contrast. No oral contrast administered. All CT scans are performed using dose optimization technique as appropriate and may include automated exposure control or mA/KV adjustment according to patient size. FINDINGS: No suspicious findings in the lung bases. The liver, spleen, and pancreas show no suspicious findings. Gallbladder is absent. No biliary tree d ilatation. Minimal pneumobilia noted. These are findings similar to comparison. Symmetric renal function is seen with no hydronephrosis or suspicious renal mass. No pyelonephritis o r acute parenchymal process. No bladder abnormalities. No adrenal abnormalities. Uterus and ovaries s how no suspicious findings. No stomach or small bowel abnormality. Appendectomy clips are present. Moderate stool volume is prese nt near the hepatic flexure. Right-side colon and transverse colon show no suspicious findings. Miller are mildly prominent in the descending colon and in the segment of proximal sigmoid colon. This wall thickening may be artifact of incomplete distention. No abnormal stool volume in this region. There is a trace amount of stranding in the fat adjacent to the descending colon. No free air, free fluid or pneumatosis. No hernia, mass or bulky lymphadenopathy. No suspicious bony findings. IMPRESSION: Minimal colitis findings are evident in the descending colon. There is no diverticulosis in this region. There is questionable small segment in the proximal sigmoid colon showing mild or early colitis findi ngs.
--- NOTE | 2019-10-18 19:17 | ER ---
Nurse's Notes [facility] Name: Yessenia Aleman Age: 58 yrs Sex: Female : 1960 Arrival Date: 10/18/2019 Time: 16:15 Bed 18 Private MD: Diagnosis: Upper abdominal pain, unspecified Presentation: 10/17 16:24 Chief complaint: Patient states: RUQ/epigastric pain that radiates to the back x 2-3 sv days. Reports cough and chills as well. Pt reports nausea on arrival. Coronavirus screen: Proceed with normal triage. Patient reports a cough. Patient denies shortness of breath or difficulty breathing. Patient reports a measured and/or subjective temperature greater than 100.4F. Patient denies travel on a cruise ship or to a country the [facility] currently lists as an affected area. Patient denies contact with known and/or suspected case of COVID-19. Ebola Screen: No symptoms or risks identified at this time. Initial Sepsis Screen: Does the patient meet any 2 criteria? No. Patient's initial sepsis screen is negative. Does the patient have a suspected source of infection? No. Patient's initial sepsis screen is negative. Risk Assessment: Do you want to hurt yourself or someone else? Patient reports no desire to harm self or others. Onset of symptoms was October 15, 2019. 16:24 Method Of Arrival: Ambulatory sv 16:24 Acuity: HOLLI 2 sv Triage Assessment: 16:26 General: Appears in no apparent distress. uncomfortable, Behavior is calm, cooperative, sv appropriate for age. Pain: Complains of pain in epigastric area and right upper quadrant Pain radiates to back Pain currently is 8 out of 10 on a pain scale. Pain began 2-3 days ago. Neuro: Level of Consciousness is awake, alert, obeys commands, Oriented to person, place, time, situation, Gait is steady. GI: Reports nausea. Derm: Skin is normal. Historical: - Allergies: 16:26 Codeine; sv - PMHx: 16:26 Anxiety; Arthritis; biliary chirrosis; biliary disease; CHF; Chronic Pancreatitis; sv Hypertension; Pancreatitis; Pneumonia; - Immunization history:: Adult Immunizations up to date. - Social history:: Smoking status: Patient denies any tobacco usage or history of. Screenin:56 Abuse screen: Denies threats or abuse. Denies injuries from another. Nutritional sv screening: No deficits noted. Tuberculosis screening: No symptoms or risk factors identified. Fall Risk None identified. Assessment: 17:00 General: Appears uncomfortable, Behavior is calm, cooperative, appropriate for age. Pain: Complains of pain in left lower quadrant. Neuro: Level of Consciousness is awake, alert, obeys commands, Oriented to person, place, time, situation, Appropriate for age. Cardiovascular: Capillary refill < 3 seconds Patient's skin is warm and dry. Respiratory: Airway is patent Respiratory effort is even, unlabored, Respiratory pattern is regular, symmetrical. GI: Bowel sounds present X 4 quads. Reports nausea, vomiting. EENT: Derm: Skin is intact, is healthy with good turgor, Skin is dry. 17:51 Reassessment: Pt states that the medication helped take the edge off and the nausea is ah better. 18:15 Reassessment: Pt states that pain is 6/10. Informed provider. Pt medicated with fentanyl. 18:23 Reassessment: Pt to radiology via stretcher for CT scan. 19:13 Reassessment: Patient appears in no apparent distress at this time. Patient and/or vc family updated on plan of care and expected duration. Pain level reassessed. Patient is alert, oriented x 3, equal unlabored respirations, skin warm/dry/pink. Resumed care from LUCIUS Bucio. Vital Signs: 16:24 BP 181 / 88; Pulse 71; Resp 20; Temp 98.3; Pulse Ox 99% ; Weight 81.65 kg; Height 5 ft. sv 0 in. (152.40 cm); Pain 8/10; 19:15 BP 162 / 93; Pulse 59; Resp 20; Pulse Ox 98% on R/A; vc 16:24 Body Mass Index 35.15 (81.65 kg, 152.40 cm) sv ED Course: 16:15 Patient arrived in ED. fj1 16:19 Mah[facility] Galindo [facility]C is [facility]. kb 16:19 Philip Coburn MD is Attending Physician. kb 16:26 Triage completed. sv 16:26 Arm band placed on. sv 16:42 Rupinder Randle RN is Primary Nurse. ah 16:54 Inserted saline lock: 20 gauge in right antecubital area, using aseptic technique. dh4 16:56 Patient has correct armband on for positive identification. Bed in low position. Call sv light in reach. Pulse ox on. NIBP on. Door closed. Head of bed elevated. 17:50 No provider procedures requiring assistance completed. 18:31 CT Abd/Pelvis - IV Contrast Only In Process Unspecified. EDMS 19:25 IV discontinued, intact, bleeding controlled, No redness/swelling at site. Pressure vc dressing applied. Administered Medications: 16:55 Drug: NS 0.9% 1000 ml Route: IV; Rate: 1000 ml; Site: right antecubital; 19:27 Follow up: Response: No adverse reaction; IV Intake: 1000ml vc 16:55 Drug: Zofran (Ondansetron) 4 mg Route: IVP; Site: right antecubital; 18:14 Follow up: Response: No adverse reaction 18:14 Follow up: Response: No adverse reaction 16:55 Drug: fentaNYL (PF) 50 mcg Route: IVP; Site: right antecubital; 18:14 Follow up: Response: No adverse reaction 18:13 Drug: fentaNYL (PF) 50 mcg Route: IVP; Site: right antecubital; 19:14 Follow up: Response: No adverse reaction; Pain is decreased vc Intake: 19:27 IV: 1000ml; Total: 1000ml. vc Outcome: 19:17 Discharge ordered by . kb 19:24 Discharged to home ambulatory. vc 19:24 Condition: good 19:24 Discharge instructions given to patient, Instructed on discharge instructions, follow up and referral plans. medication usage, Demonstrated understanding of instructions, follow-up care, medications, Prescriptions given X 2. 19:26 Patient left the ED. vc Signatures: Dispatcher [employer] EDIN Mahsa Galindo, SOHAIL CUELLOP-Barbie Wilhelm RN RN Rosana Gilliam RN RN vc James, Frank Rupinder Mae RN RN ah Huhn, Donald 4 Corrections: (The following items were deleted from the chart) 16:27 16:24 Chief complaint: Patient states: RUQ/epigastric pain that radiates to the back x sv 2-3 days. Reports cough and chills as well. sv
--- NOTE | 2019-10-18 19:17 | EDPHYS ---
Physician Documentation [facility] Name: Yessenia Aleman Age: 58 yrs Sex: Female : 1960 Arrival Date: 10/18/2019 Time: 16:15 Bed 18 Private MD: ED Physician Philip Coburn HPI: 10/17 19:16 This 58 yrs old Female presents to ER via Ambulatory with complaints of PAINS kb AROUND THE RIB CAGE AND AROUND THE LOWER BACK AREA. 19:16 The patient presents with abdominal pain in the upper abdomen. Onset: The kb symptoms/episode began/occurred 3 day(s) ago. The symptoms do not radiate. Associated signs and symptoms: Pertinent positives: nausea and vomiting. The symptoms are described as constant. Modifying factors: The symptoms are alleviated by nothing, the symptoms are aggravated by nothing. Severity of pain: At its worst the pain was moderate in the emergency department the pain is unchanged. The patient has not experienced similar symptoms in the past. The patient has not recently seen a physician. Pt reports upper abd for 3 days. States she has had this pain several times in the past. Historical: - Allergies: 16:26 Codeine; sv - PMHx: 16:26 Anxiety; Arthritis; biliary chirrosis; biliary disease; CHF; Chronic Pancreatitis; sv Hypertension; Pancreatitis; Pneumonia; - Immunization history:: Adult Immunizations up to date. - Social history:: Smoking status: Patient denies any tobacco usage or history of. ROS: 17:45 Constitutional: Negative for fever, chills, and weight loss, Neck: Negative for injury, kb pain, and swelling, Cardiovascular: Negative for chest pain, palpitations, and edema, Respiratory: Negative for shortness of breath, cough, wheezing, and pleuritic chest pain, Back: Negative for injury and pain, MS/Extremity: Negative for injury and deformity, Skin: Negative for injury, rash, and discoloration, Neuro: Negative for headache, weakness, numbness, tingling, and seizure. 17:45 Abdomen/GI: Positive for abdominal pain, nausea and vomiting, Negative for diarrhea, constipation. Exam: 19:14 Constitutional: This is a well developed, well nourished patient who is awake, alert, kb and in no acute distress. Head/Face: Normocephalic, atraumatic. Chest/axilla: Normal chest wall appearance and motion. Nontender with no deformity. No lesions are appreciated. Cardiovascular: Regular rate and rhythm with a normal S1 and S2. No gallops, murmurs, or rubs. Normal PMI, no JVD. No pulse deficits. Respiratory: Lungs have equal breath sounds bilaterally, clear to auscultation and percussion. No rales, rhonchi or wheezes noted. No increased work of breathing, no retractions or nasal flaring. Back: No spinal tenderness. No costovertebral tenderness. Full range of motion. Skin: Warm, dry with normal turgor. Normal color with no rashes, no lesions, and no evidence of cellulitis. MS/ Extremity: Pulses equal, no cyanosis. Neurovascular intact. Full, normal range of motion. Neuro: Awake and alert, GCS 15, oriented to person, place, time, and situation. Cranial nerves II-XII grossly intact. Motor strength 5/5 in all extremities. Sensory grossly intact. Cerebellar exam normal. Normal gait. 19:14 Abdomen/GI: Inspection: abdomen appears normal, Bowel sounds: normal, in all quadrants, Palpation: soft, in all quadrants, moderate abdominal tenderness, in the right upper quadrant and left upper quadrant. Vital Signs: 16:24 BP 181 / 88; Pulse 71; Resp 20; Temp 98.3; Pulse Ox 99% ; Weight 81.65 kg; Height 5 ft. sv 0 in. (152.40 cm); Pain 8/10; 19:15 BP 162 / 93; Pulse 59; Resp 20; Pulse Ox 98% on R/A; vc 16:24 Body Mass Index 35.15 (81.65 kg, 152.40 cm) sv MDM: 16:19 Patient medically screened. kb 19:14 Data reviewed: vital signs, nurses notes. Data interpreted: Pulse oximetry: on room air kb is 99 %. Interpretation: normal. Counseling: I had a detailed discussion with the patient and/or guardian regarding: the historical points, exam findings, and any diagnostic results supporting the discharge/admit diagnosis, lab results, radiology results, the need for outpatient follow up, a family practitioner, a commercial correspondent, to return to the emergency department if symptoms worsen or persist or if there are any questions or concerns that arise at home. 10/17 16:22 Order name: Basic Metabolic Panel; Complete Time: 17:15 kb 10/17 16:22 Order name: CBC with Diff; Complete Time: 17:04 kb 10/17 16:22 Order name: Hepatic Function; Complete Time: 17:15 kb 10/17 16:22 Order name: Lipase; Complete Time: 17:15 kb 10/17 17:45 Order name: CT Abd/Pelvis - IV Contrast Only; Complete Time: 19:13 kb 10/17 16:22 Order name: IV Saline Lock; Complete Time: 17:36 kb 10/17 16:22 Order name: Labs collected and sent; Complete Time: 17:36 kb Administered Medications: 16:55 Drug: NS 0.9% 1000 ml Route: IV; Rate: 1000 ml; Site: right antecubital; ah 19:27 Follow up: Response: No adverse reaction; IV Intake: 1000ml vc 16:55 Drug: Zofran (Ondansetron) 4 mg Route: IVP; Site: right antecubital; ah 18:14 Follow up: Response: No adverse reaction ah 18:14 Follow up: Response: No adverse reaction ah 16:55 Drug: fentaNYL (PF) 50 mcg Route: IVP; Site: right antecubital; ah 18:14 Follow up: Response: No adverse reaction ah 18:13 Drug: fentaNYL (PF) 50 mcg Route: IVP; Site: right antecubital; ah 19:14 Follow up: Response: No adverse reaction; Pain is decreased vc Disposition: 10/18/19 19:17 Discharged to Home. Impression: Upper abdominal pain, unspecified. - Condition is Stable. - Discharge Instructions: Abdominal Pain, Adult, [id number]. - Prescriptions for Bentyl 20 mg Oral Tablet - take 1 tablet by ORAL route every 6 hours As needed; 20 tablet. Zofran 4 mg Oral Tablet - take 1 tablet by ORAL route every 6 hours As needed; 20 tablet. - Medication Reconciliation Form, Thank You Letter, Antibiotic Education, Prescription Opioid Use form. - Follow up: Emergency Department; When: As needed; Reason: Worsening of condition. Follow up: Private Physician; When: 2 - 3 days; Reason: Recheck today's complaints, Continuance of care, Re-evaluation by your physician. Signatures: Dispatcher [employer] EDMahsa Mcallister, TECHNICAL ARTIST-C AYDIN-Barbie Wilhelm, RN RN sv Rosana Denise RN RN vc Harris, Amy RN RN Corrections: (The following items were deleted from the chart) 19:26 19:17 10/18/2019 19:17 Discharged to Home. Impression: Upper abdominal pain, vc unspecified. Condition is Stable. Forms are Medication Reconciliation Form, Thank You Letter, Antibiotic Education, Prescription Opioid Use. Follow up: Emergency Department; When: As needed; Reason: Worsening of condition. Follow up: Private Physician; When: 2 - 3 days; Reason: Recheck today's complaints, Continuance of care, Re-evaluation by your physician. kb
[2019-10-18 20:03] VITALS: BP 162/93; O2SAT 98
[2019-10-18 20:04] VITALS: TEMP 98.3
== END 2019-10-18 19:26 | disposition home or self-care (01) ==
LOC: ER 16:05
DX: R10.10 Upper abdominal pain, unspecified (principal); R11.2 Nausea with vomiting, unspecified; Z88.5 Allergy status to narcotic agent
CPT/HCPCS: 85025; 80048; 36415; 80076; 83690; 74177; 96375; 96374; 99284; Q9967; J3010 ×2; J7030; J2405

== ENCOUNTER 2019-11-20 11:42 | Emergency (ER) | payer OTHER ==
--- OUTSIDE RECORDS SUMMARY | 2019-11-20 12:36 | XMS REPORT | Continuity of Care Document ---
:1960 Author Organization [facility] t Address [address] [place] [address] Care Team Providers Name Role Phone Maxine Grayson MD Attending Clinician Asaf PERRIN Attending Clinician Won Fisher MD Attending Clinician Doctor Unassigned, Name Attending Clinician Unavailable Singer CANALES Attending Clinician Obdulia Vasquez MD Attending Clinician DANIEL Mai Attending Clinician Unavailable Haley Cox Attending Clinician Unavailable PROVIDER, TEMHaley Attending Clinician Unavailable RADU Attending Clinician Unavailable [...] [facility] - depression depression Me moria l [facility] ent [facility] Chronic Chronic Diagnosis [facility] pancreat[facility] pancreatit Shari kes - is, is, Memoria unspecifie unspecifie l d d [facility] pancreatit pancreatit en t is type is type Clinics Primary Primary Problem Active [facility] insomnia insomnia [facility] Iron Iron Problem Active [facility] deficiency deficiency Shari kes - anemia, anemia, Memoria unspecifie unspecifie l d iron d iron [facility] deficiency deficiency en t anemia anemia Clinics type type Seasonal Seasonal Diagnosis Active [facility] allergies allergies [facility] - [facility] Nonadheren Nonadheren Diagnosis Active [facility] ce to ce to [facility] - medication medication [facility] Elevated Elevated Diagnosis Active [facility] liver liver [facility] - enzymes enzymes [facility] Tremor Tremor Diagnosis Active [facility] Canker Canker Diagnosis Active [facility] sores oral sores oral Shari kes - [facility] Allergies, Adverse Reactions, Alerts This patient has no known allergies or adverse reactions. Medications Ordered Filled Start Stop Current Ordering Indication Dosage Frequency Signature Comments Components Source Medication Medication Date Date Medication? Clinician (SIG) Name Name Chlorhexidi Chlorhexidi 2020-0 2020- Yes Na Slade [address] [facility] ne ne 6 06-30 swish and [facility] - Gluconate Gluconate 00:00: 00:00 spit Mi mori 00 :00 [facility] Losartan Losartan Yes Na Slade [address] [facility] Potassium Potassium [facility] Lexapro Lexapro Yes Na Slade [address] [facility] Seroquel XR Seroquel XR Yes Na Slade [address] [facility] in the [facility] - evening [facility] Phenergan Phenergan Yes Na Slade one tablet [facility] kes - [facility] ent [facility] Doxycycline Doxycycline Yes Na Slade 1 capsule [...] ID 2019-10-06 2019-10-06 [facility] [id number] [address] 10:40:00 10:40:00 [employer] [facility] Medicine l Medicine Outpati ent Clinics 2019-09-17 2019-09-17 [facility] [id number] [address] 10:24:00 10:24:00 [employer] [facility] Medicine l Medicine Outpati ent Clinics 2019-08-21 2019-08-21 Emergency Critical access hospital [id number] 19:42:19 23:51:00 Gabriele Guidry [id number] [place] 4.2.7.2.686 [place] [id number] 2019-07-14 2019-07-14 [facility] [id number] 15:00:00 15:00:00 [employer] [facility] Medicine l Medicine Outpati ent Clinics 2019-06-25 2019-06-25 Emergency [facility] [id number] 16:52:11 20:04:00 Grisel Guidry [id number] [place] 4.2.7.2.686 [place] [id number] 2019-06-19 2019-06-19 [facility] [id number] 13:58:11 19:09:00 Skyler Guidry [id number] [place] 4.2.7.2.686 [place] [id number] 2019-06-19 2019-06-19 Orders Doctor JAQUELIN [id number] 00:00:00 00:00:00 Only Unassigned, KATHIE 350.1.13.10 [place] [address]686 [id number] 2019-05-19 2019-05-19 Emergency [place], [facility] [id number] 18:29:04 21:26:00 Gary Guidry [id number] [place] 4.2.7.2.686 [place] [id number] 2019-03-02 2019-03-02 [facility] [id number] [address] 10:40:00 10:40:00 t [facility]isk [facility] 2019-02-04 2019-02-04 [facility] [id number] [address] 10:55:00 10:55:00 t Whisk [facility] 2018-12-24 2018-12-24 [place] [id number] 00:00:00 00:00:00 [facility] [id number] Surgical 4.2.7.2.686 [facility] [id number] hazel Guidry 2018-10-07 2018-10-07 [facility] [id number] 11:00:00 11:00:00 t Whisk s - [employer] [facility] Medicine Outpati ent Clinics 2018-07-28 2018-07-28 [facility] [id number] 09:57:00 09:57:[address] [facility] 2018-07-25 2018-07-25 [facility] [id number] 14:40:00 14:40:00 t [place] [employer] [facility] Results Test Description Test Time Test Comments Results Result Comments Source Culture, Urine 2017-08-07 15:57:00 Test Item Value Reference Range Interpretation Comme nts Culture, Urine (test code = URC) NF Culture, Urine (test code = URC1) 10 NSF * This is a n EDITED result. * A prior result th at was reported as final has been change d. [id number] 22:53:00 Test Item Value Reference Range Interpretation [...] = UACAST) CAST LPF Urine Source: Urine [id number] SURGICAL PATHOLOGY, LEVEL [id number] 14:31:[address] [address] Laboratory Printed: 07/09/[address] [place] [address] DAEMPathology Page: 1 Patient: ZEKE ROMERO Birthdate: 1960 Age/Sex: 56/F Spec#: [id number]: HERMES SALAZAR Specimen Date: 07/08/17 [...] Conway Entered by:07/09/17 - 1430 MAY PROCEDURES: 90693,01054/4 Patient: ZEKE ROMERO Re07/03/17Loc: T4-A MR#: [id number] CONTINUED ON NEXT PAGE Dis: 07/09/17ta: DIS IN - [address] [address] Laboratory Printed: 07/09/[address] [place] [address] DAEMPathology Page: 2 Patient: ZEKE ROMERO [id number] (Continued) GROSS DESCRIPTION A. LIVER BIOPSY LEFT [...] SHAHID Entered by:07/08/17 - 1316 [facility].Y MICROSCOPIC DESCRIPTION A microscopic examination was performed to arrive at the diagnostic conclusion reported. Signed ___ ____(Electronically Signed) Kelvin 07/09/17 Patient: ZEKE ROMERO Re07/03/17Loc: T4-A MR#: [id number] END OF REPORT Dis: 07/09/17ta: DIS [id number] 05:13:00 Test Item Value Reference Range Interpretation [...] U/L 8-55 H = ALT) Reference Lab [id number] 04:14:00 Test Item Value Reference Range Interpretation Comments Reference Lab 10 U/mL 0-35 Laurent ECLIA Testing (test code methodolo gyPerformed at: HD = CA199) - [facility] [address] [facility], [place] [id number] Di aimee: Chico Suero MD, Phone : [phone] Reference Lab [id number] 16:14:00 Test Item Value Reference Range Interpretation Comments Reference Lab Testing 128.5 Units 0.0-20.0 H (test code = MARLON) Negative 0.0 - 20.0 Equivocal 20.1 - 24.9 Positive >24.9Mitochondr ial (M2) Antibodies are found in 90-96% ofpatients with primary biliary cirrhosis.Perfo rmed at: [facility] rp [address] [place], [place] [id number] Director: Pj Rider MD, [place] ne: [phone] Reference Lab [id number] 16:14:00 Test Item Value Reference Range Interpretation [...] testing of p ositive sera with both OH-3 and MPO-ANCA enzyme immunoassays. A s many as 5% serumsamples are positive only b y EIA. Ref. AM J Clin Ikepfw0412;111: 507-513. Reference Lab <1:20 titer Neg:<1:20 The atypical p ANCA pattern Testing (test has been obser chelita in code = ATANCA) asignificant percentage of patients with u lcerative colitis,primary sclerosing cholangitis and autoimmune hepatitis.Perfo rmed at: [facility] [address] [place], [place] [id number] Di aimee: Chester ramírez MD, Phone: [phone] Gzprpoedd3156-46-60 05:12:00 Test Item Value Reference Range Interpretation [...] 8-55 H code = ALT) Reference Lab [id number] 22:07:00 Test Item Value Reference Range Interpretation Comments Reference Lab Testing 785 IU/L 39-117 H (test code = ISOALKT) Reference Lab Testing 25 % 14-68 (test code = ISOALKBT) Reference Lab Testing 74 % 18-85 (test code = ISOALKLT) Reference Lab Testing 1 % 0-18 Perfor med at: HD - (test code = ISOALKIT) [facility] [place] [id number] [place], [place] [id number] b Director: Chico Suero MD, Phone: [phone] [facility] at[facility] [id number] Di aimee: Chester ramírez MD, Phone: [phone] Efvnrelgi7993-23-06 11:48:00 Test Item Value Reference Range Interpretation [...] code = ALT) 92 U/L 8-55 H Qbaisaeyk1306-32-71 06:08:00 Test Item Value Reference Range Interpretation [...] 8.5 mg/dL 7.8-10.44 N code = CA) Lqvebagof2511-86-52 06:06:00 Test Item Value Reference Range Interpretation [...] code = ALT) 129 U/L 8-55 H Jzdopcpknh1794-84-57 05:57:00 Test Item Value Reference Range Interpretation [...] code = BASO#) 0.0 thou/uL 0.0-0.2 N Wwkwbuqgvna5892-59-44 05:55:00 Test Item Value Reference Range Interpretation [...] - 4. 0 CRITICAL: > 4.0 Anticoagulant? XMYWEnwqzlcde6342-97-51 05:36:00 Test Item Value Reference Range Interpretation [...] 8.9 mg/dL 7.8-10.44 N code = CA) Lueliqfdn0224-21-42 05:33:00 Test Item Value Reference Range Interpretation [...] code = ALT) 160 U/L 8-55 H Xgyuqtlbzn8658-96-97 05:28:00 Test Item Value Reference Range Interpretation [...] 0.1 thou/uL 0.0-0.2 N Chemistry - Elizabeth Ebrdpyk4313-71-89 13:02:00 Test Item Value Reference Range Interpretation [...] hod: Enzyme Linked Fluorescent Immunoassay (Elizabeth)Reference s: [employer] Elizabeth [employer] - Directions forU , June,August 02, Donews ic. Cwmmddcpp3994-97-31 05:00:00 Test Item Value Reference Range Interpretation [...] code = ALT) 144 U/L 8-55 H Adcmuqqeb1314-90-98 04:50:00 Test Item Value Reference Range Interpretation [...] 8.4 mg/dL 7.8-10.44 N code = CA) Ddfjaqrtdi4769-20-33 04:39:00 Test Item Value Reference Range Interpretation [...] code = BASO#) 0.0 thou/uL 0.0-0.2 N Jftiipmhf0865-69-06 17:07:00 Test Item Value Reference Range Interpretation Comments Chemistry (test code = IGG) 1032.00 mg/dL 552-1631 N Vvqcbkfpk2000-19-90 17:07:00 Test Item Value Reference Range Interpretation Comments Chemistry (test code = IGM) 215.00 mg/dL 33-293 N Lqtjaeohis6376-23-08 00:50:00 Test Item Value Reference Range Interpretation [...] UABLD) Urine Source: Urine Clean [employer] - Hwwijyxz3583-21-46 00:25:00 Test Item Value Reference Range Interpretation Comments Chemistry - Specials (test Non-Reactive NonReactive code = THEPAIGM) Chemistry - Specials (test Non-Reactive S/CO NonReactive code = THBSAG) Chemistry - Specials (test Non-Reactive NonReactive code = INTHBCM) Chemistry - Specials (test Non-Reactive NonReactive code = INTHEPC) [id number] 22:12:00 Test Item Value Reference Range Interpretation [...] code 196 U/L 8-55 H = ALT) Paiknwwre5646-44-62 22:12:00 Test Item Value Reference Range Interpretation Comments Chemistry (test code = LIP) 22 U/L 8-78 N Bzeyrhllmb3670-38-90 21:50:00 Test Item Value Reference Range Interpretation [...] code = BASO#) 0.1 thou/uL 0.0-0.2 N Ayiaeccsm1131-86-90 22:49:00 Test Item Value Reference Range Interpretation [...] 78 U/L 8-55 H code = ALT) Qbkvvamsz8316-81-26 22:49:00 Test Item Value Reference Range Interpretation Comments Chemistry (test code = LIP) 12 U/L 8-78 N Nqazhshter6116-40-02 22:24:00 Test Item Value Reference Range Interpretation [...] code = BASO#) 0.0 thou/uL 0.0-0.2 N Yhccfsmoyv5614-21-98 22:00:00 Test Item Value Reference Range Interpretation [...] UABLD) Negative Negative Urine Source: Urine Clean YcdxtCwmviglw1002-77-27 09:28:00 Test Item Value Reference Range Interpretation Comments Accuchek (test code = ACU) 99 mg/dL 70-110 N Gernfhjgfz1347-99-22 09:14:00 Test Item Value Reference Range Interpretation [...] UABLD) Negative Negative Urine Source: Urine Clean JpzpfSafqeztxgc3115-77-90 21:28:00 Test Item Value Reference Range Interpretation [...] UABLD) Negative Negative Urine Source: Urine Clean RfmrkDxcjqooyv7204-86-98 21:09:00 Test Item Value Reference Range Interpretation [...] 95 U/L 8-55 H code = ALT) Dsuopmmxt3481-24-15 21:09:00 Test Item Value Reference Range Interpretation Comments Chemistry (test code = LIP) 39 U/L 8-78 N Ggqlfnhhsl2701-79-99 20:49:00 Test Item Value Reference Range Interpretation [...] code = BASO#) 0.0 thou/uL 0.0-0.2 N Notloavmlw4534-93-35 21:34:00 Test Item Value Reference Range Interpretation [...] using a more sp ecific alternate chemi brnady method inorder to obtain a confir med analytical resu lt. Additionalconfi rmation and identificat ion may be ordered on a routinebasis, i f desired. Presu mptive positive urines are held forto [facility]. Urine Source: Urine Clean FwyycHddhirmqem4074-72-27 19:17:00 Test Item Value Reference Range Interpretation [...] = UABLD) Negative Negative Urine Source: Urine [id number] 18:48:00 Test Item Value Reference Range Interpretation [...] code 84 U/L 8-55 H = ALT) Icgneieop8185-03-63 18:48:00 Test Item Value Reference Range Interpretation Comments Chemistry (test code = JORGE) 53.0 U/L 25-125 N Tlexqmwpc7397-80-43 18:48:00 Test Item Value Reference Range Interpretation Comments Chemistry (test code = LIP) 10 U/L 8-78 N Zbgydndkzl0998-34-35 18:19:00 Test Item Value Reference Range Interpretation [...] = BASO#) 0.1 thou/uL 0.0-0.2 N Culture, [id number] 10:22:00 Test Item Value Reference Range Interpretation Comments Culture, Urine (test code = URC) NF N Culture, Urine (test code = URC1) 10 MSF N [id number] 17:38:00 Test Item Value Reference Range Interpretation Comments Chemistry (test code = PHOS) 2.9 mg/dL 2.3-4.7 N Ygqobwkwh7071-09-67 17:04:00 Test Item Value Reference Range Interpretation [...] H = ALT) Chemistry - BNP, HgbA1c, [id number] 17:04:00 Test Item Value Reference Range Interpretation Comments Chemistry - BNP, 4.9 % 4.0-6.0 N Therapeutic goals for glycemic HgbA1c, PTHi (test control ( ADA)Adults:- Goal of code = WBXN7PE) therapy: Les s than 7.0% HbA1c- Action suggeste d: Greater than 8.0% JiD2vCpzbe tric patients:- Toddlers and pr eschoolers: Less than 8.5% (but Greater than 7.5%)- Katelynn ool age (6-12 years): Less th an 8%- Adolescents and young adults (13-19 years): Less than 7.5%Diagnosing diabetes (ADA)- HbA1c: Greater than or equal to 6.5% Values of 5.7 - 6.4% indicate HIGH risk for developing DiabetesInterna tional Expert Committee Repor t on the Role of the N3BPebhl in the Diagnosis of Di abetes. Diabetes Care 2009July;32(7): 1327-1334ADA, Diagnosis cla ssification of diabetes [facility].Diabetes Care 2010; 33 S uppl 1:S62 Xcbodkiej7655-25-24 16:59:00 Test Item Value Reference Range Interpretation Comments Chemistry (test code = CRP) 1.16 mg/dL = or < 0.5 H What test does the doctor want? C-REACTIVE PROTEIN (CRP)Sibkyrqgej6911-34-06 16:53:00 Test Item Value Reference Range Interpretation [...] HPF None Seen Urine Source: Urine Clean XthekZzjezxypcw1805-64-68 16:46:00 Test Item Value Reference Range Interpretation [...] code = BASO#) 0.1 thou/uL 0.0-0.2 N [id number] 21:59:00 Test Item Value Reference Range Interpretation [...] Urine Clean CatchSepsis - Lactic Acid >2 [id number] 23:59:00 Test Item Value Reference Range Interpretation Comments Sepsis - Lactic Additional Lactate testin g will be Acid >2 Rflx performed in 3 hrs (test code = according to alfred cox WHTJW5B) SepsisProtocol. [id number] 21:12:00 Test Item Value Reference Range Interpretation Comments Chemistry (test code = JORGE) 59.0 U/L 25-125 N [id number] 20:59:00 Test Item Value Reference Range Interpretation [...] 87 U/L 8-55 H code = ALT) [id number] 20:59:00 Test Item Value Reference Range Interpretation Comments Chemistry (test code = LIP) 32 U/L 8-78 N Chemistry - [id number] 20:59:00 Test Item Value Reference Range Interpretation Comments Chemistry - Lactate (test code = 2.1 mmol/L 0.5-2.2 N LACTSEP-T) Ovlyalfroy1777-90-94 20:43:00 Test Item Value Reference Range Interpretation [...] = UABLD) Negative Negative Urine Source: Urine DpreuqQkqiaomdda0206-47-99 20:37:00 Test Item Value Reference Range Interpretation [...]
--- OUTSIDE RECORDS SUMMARY | 2019-11-20 12:37 | XMS REPORT ---
[...] Status Dosage System Date Date Seroquel XR [facility] 53002670776 300 MG Orally Active 1 tablet Once a day in the evening Lexapro [facility] 74076899586 20 MG Orally Active 1 table t Once a day Flonase [facility] 35950964187 50 MCG/ACT Active 2 spray Nasally Once a in each day nostril Robaxin-750 [facility] 80500833670 750 MG Orally Active 1 tablet every 4 hrs Losartan [facility] 21168439561 100 MG Active TAKE 1 Potassium TABLET BY MOUTH EVERY DAY Phenergan [facility] [address]-57 25mg Po Q 12 Active one hours tablet Doxycycline ND 01409737078 100 MG Orally Active 1 capsule Hyclate twice a day Diazepam [facility] 86451348850 5 MG Orally Active 1 table t Once a day prn as needed panic attacks Gabapentin ND 42186497329 300 MG Orally Active 1 c apsule Once a day PredniSONE ND 84644513307 10 MG Orally Active 2 ta blet Once a day daily x 5 days then one tablet daily x 5 days Losartan ND 19748111013 100 MG Orally Active 1 tab let Potassium Once a day Chlorhexidine [facility] 68799535374 0.12 % Mouth October 05September Active 15 ML Gluconate twice a day 2019 and 2019 spit Azithromycin ND 85018226295 250 MG Orally Active 2 tablets Once a day on the first day, then 1 tablet daily for 4 days Results No Known Results Summary Purpose eClinicalWorks Submission
[2019-11-20 13:00] LABS: Absolute Lymphocytes (CBC) 0.3 K/uL (0.7-4.9); Basophils % 0.5 % (0-1.3); Hematocrit 31.4 % (36.0-45.0); MPV 8.7 fL (7.6-11.3); RBC Red Blood Cell Count 3.36 M/uL (3.86-4.86)
[2019-11-20] MEDS ORDERED: FENTANYL CITR 100 MCG/2 ML ONE ×2 (13:08→14:55)
[2019-11-20] MEDS ORDERED: NA CHLORIDE 0.9% 1,000 ML ONE (13:08)
[2019-11-20] MEDS ORDERED: ONDANSETRON 4 MG/2 ML VIAL ONE (13:08)
[2019-11-20 13:18] LABS: Albumin 3.3 g/dL (3.4-5.0); Bilirubin Direct 0.8 mg/dL (0-0.2); Bilirubin Total 1.1 mg/dL (0.2-1.0); Potassium 3.8 mmol/L (3.5-5.1); Protein, Total 7.9 g/dL (6.4-8.2)
[2019-11-20 13:25] LABS: Blood Morphology Comment NOTED (NOT SEEN); Platelet Estimate DECR; Stomatocytes 1+; White Blood Cell Scan OK
--- NOTE | 2019-11-20 13:30 | RAD REPORT ---
EXAM DESCRIPTION: CT - Abdomen Pelvis W Contrast - 11/20/2019 1:11 pm CLINICAL HISTORY: ABD PAIN COMPARISON: Abdomen Pelvis W Contrast dated 10/18/2019; Abdomen Pelvis W Contrast dated 09/28/2019; Abdomen Pelvis W Contrast dated 08/11/2019; Abdomen Pelvis W Contrast dated 08/17/2018 TECHNIQUE: Biphasic, helical CT imaging of the abdomen and pelvis was performed following 100 ml non -ionic IV contrast. No oral contrast administered. All CT scans are performed using dose optimization technique as appropriate and may include automated exposure control or mA/KV adjustment according to patient size. FINDINGS: No suspicious findings in the lung bases. Liver size is normal and stable. Mild fatty infiltration pattern seen with no focal abnormality. Bord teagan to mild splenomegaly is present, stable with no focal splenic abnormality. Gallbladder is abse nt. No biliary tree dilatation. Mild pneumobilia present. No acute or chronic pancreatitis findings seen. No solid or cystic pancreatic mass. Symmetric renal function is seen with no hydronephrosis or suspicious renal mass. No pyelonephritis o r acute parenchymal process. Urinary bladder is fully contracted. Uterus and ovaries show no suspicio us findings. No adrenal abnormalities. No dilated bowel loops or bowel wall thickening. No acute GI findings. Appendectomy clips are present . No free air, free fluid or inflammatory stranding. No hernia, mass or bulky lymphadenopathy. L4-5 disc space narrowing is present similar to the October 17 study. Air density is present in the L2-3 and L3-4 disc spaces typically degenerative disc disease. Air densities are new from the prior study. The patient has numerous air densities in the central canal posterior to the L4- S1 vertebrae. Follo w-up questioning of the patient by the primary service indicates the recent epidural medication injec tion. IMPRESSION: No pancreatitis findings are present. No gastric wall thickening or other finding to exp zayra the epigastric pain history. No acute peritoneal or retroperitoneal findings. Nonacute findings are detailed in the body of the re port. The patient has numerous air densities in the central canal in the L4-S1 region. Patient gave a histo ry of a recent epidural medication injection that would explain these air densities.
[2019-11-20] MEDS ORDERED: PROMETHAZINE INJ 25 MG/ML AMP ONE (14:56)
--- NOTE | 2019-11-20 15:04 | EDPHYS ---
Physician Documentation [facility] Name: Yessenia Aleman Age: 59 yrs Sex: Female : 1960 Arrival Date: 11/20/2019 Time: 11:44 Bed 6 Private MD: Jeannie Slade ED Physician Matthew Magallon HPI: 11/19 12:53 This 59 yrs old Female presents to ER via Ambulatory with complaints of pm1 Abdominal Pain, Nausea/Vomiting, Pain With Urination. 12:53 The patient presents with abdominal pain in the epigastric area. Onset: The pm1 symptoms/episode began/occurred 3 day(s) ago. The symptoms do not radiate. Associated signs and symptoms: Pertinent positives: nausea and vomiting, dysuria, Pertinent negatives: chest pain, diarrhea, fever, shortness of breath, cough. The symptoms are described as burning. Modifying factors: The symptoms are alleviated by nothing, the symptoms are aggravated by food. Severity of pain: in the emergency department the pain is actually worse. The patient has experienced similar episodes in the past, multiple times. 13:27 Patient with steroid injections to her back yesterday for chronic pain. pm1 Historical: - Allergies: 12:24 Codeine; jl7 - Home Meds: 12:24 gabapentin 300 mg Oral cap 1 cap daily [Active]; Lexapro 20 mg Oral tab 1 tab [Active]; jl7 losartan 100 mg Oral tab 1 tab once daily [Active]; [employer] 10-325 mg Oral tab 1 tab twice a day [Active]; Seroquel 300 mg Oral tab 1 tab once daily [Active]; - PMHx: 12:24 Anxiety; Arthritis; biliary chirrosis; biliary disease; CHF; Chronic Pancreatitis; jl7 Hypertension; Pancreatitis; Pneumonia; - PSHx: 12:24 Cholecystectomy; Appendectomy; jl7 - Immunization history:: Adult Immunizations not up to date. - Social history:: Smoking status: Patient denies any tobacco usage or history of. Patient/guardian denies using alcohol, street drugs. ROS: 12:53 Constitutional: Negative for fever, chills, and weight loss, Neck: Negative for injury, pm1 pain, and swelling, Cardiovascular: Negative for chest pain, palpitations, and edema, Respiratory: Negative for shortness of breath, cough, wheezing, and pleuritic chest pain. 12:53 Back: Negative for injury and pain. 12:53 MS/Extremity: Negative for injury and deformity, Skin: Negative for injury, rash, and discoloration, Neuro: Negative for headache, weakness, numbness, tingling, and seizure. 12:53 Abdomen/GI: Positive for abdominal pain, nausea and vomiting, Negative for diarrhea, constipation. 12:53 : Positive for burning with urination. Exam: 12:53 Constitutional: This is a well developed, well nourished patient who is awake, alert, pm1 and in no acute distress. Head/Face: Normocephalic, atraumatic. 12:53 Back: No spinal tenderness. No costovertebral tenderness. Full range of motion. Skin: Warm, dry with normal turgor. Normal color with no rashes, no lesions, and no evidence of cellulitis. MS/ Extremity: Pulses equal, no cyanosis. Neurovascular intact. Full, normal range of motion. 12:53 Cardiovascular: Exam negative for acute changes, Rate: normal, Rhythm: regular, Pulses: no pulse deficits are appreciated. 12:53 Respiratory: Exam negative for acute changes, respiratory distress, shortness of breath. 12:53 Abdomen/GI: Exam negative for acute changes, Inspection: abdomen appears normal, Palpation: abdomen is soft and non-tender, in all quadrants. 12:53 Neuro: Exam negative for acute changes, Orientation: is normal, Mentation: is normal, Motor: is normal, moves all fours, Sensation: is normal, no obvious gross deficits. Vital Signs: 12:20 BP 150 / 103; Pulse 87; Resp 17; Temp 98.4; Pulse Ox 98% ; Weight 77.11 kg; Height 5 jl7 ft. (152.40 cm); Pain 7/10; 14:30 BP 135 / 71; Pulse 78; Resp 15; Pulse Ox 100% ; Pain 8/10; hb 12:20 Body Mass Index 33.20 (77.11 kg, 152.40 cm) jl7 MDM: 12:34 Patient medically screened. pm1 14:42 Data reviewed: vital signs. Data interpreted: Pulse oximetry: on room air is 98 %. pm1 Interpretation: normal. Counseling: I had a detailed discussion with the patient and/or guardian regarding: the historical points, exam findings, and any diagnostic results supporting the discharge/admit diagnosis, lab results, radiology results, the need for outpatient follow up, a roll changer, to return to the emergency department if symptoms worsen or persist or if there are any questions or concerns that arise at home. 11/19 12:43 Order name: Basic Metabolic Panel pm1 11/19 12:43 Order name: CBC with Diff pm1 11/19 12:43 Order name: Hepatic Function pm1 11/19 12:43 Order name: Lipase pm1 11/19 13:02 Order name: CBC with Automated Diff; Complete Time: 13:36 EDMS 11/19 13:18 Order name: Basic Metabolic Panel; Complete Time: 13:36 EDMS 11/19 12:43 Order name: CT Abd/Pelvis - IV Contrast Only pm1 11/19 13:18 Order name: Liver (Hepatic) Function; Complete Time: 13:36 EDMS 11/19 13:18 Order name: Lipase; Complete Time: 13:36 EDMS 11/19 13:25 Order name: CREATININE WHOLE BLOOD; Complete Time: 13:36 EDMS 11/19 13:26 Order name: CBC Smear Scan; Complete Time: 13:36 EDMS 11/19 13:30 Order name: CT; Complete Time: 13:36 EDMS 11/19 14:57 Order name: Urine Dipstick--Ancillary (enter results) eb 11/19 12:43 Order name: IV Saline Lock; Complete Time: 12:53 pm1 11/19 12:43 Order name: Labs collected and sent; Complete Time: 12:53 pm1 11/19 12:43 Order name: Urine Dipstick-Ancillary (obtain specimen); Complete Time: 12:53 pm1 Administered Medications: 13:01 Drug: fentaNYL (PF) 50 mcg Route: IVP; Site: right antecubital; hb 13:30 Follow up: Response: No adverse reaction hb 13:01 Drug: Zofran (Ondansetron) 4 mg Route: IVP; Site: left antecubital; hb 13:33 Follow up: Response: No adverse reaction hb 13:01 Drug: NS 0.9% 1000 ml Route: IV; Rate: 1000 ml; Site: left antecubital; hb 14:51 Drug: Phenergan 12.5 mg Route: IVP; Site: left antecubital; hb 15:22 Follow up: Response: No adverse reaction hb 14:51 Drug: fentaNYL (PF) 50 mcg Route: IVP; Site: left antecubital; hb 15:22 Follow up: Response: No adverse reaction hb Disposition: 16:24 Co-signature as Attending Physician, Matthew Magallon MD I agree with the assessment and kdr plan of care. Disposition: 11/20/19 15:04 Discharged to Home. Impression: Unspecified abdominal pain, Vomiting. - Condition is Stable. - Discharge Instructions: Abdominal Pain, Adult, Nausea and Vomiting, Adult. - Prescriptions for Bentyl 20 mg Oral Tablet - take 1 tablet by ORAL route every 6 hours As needed; 20 tablet. promethazine 25 mg Oral Tablet - take 1 tablet by ORAL route every 6 hours As needed; 20 tablet. - Medication Reconciliation Form, Thank You Letter, Antibiotic Education, Prescription Opioid Use form. - Follow up: Emergency Department; When: As needed; Reason: Worsening of condition. Follow up: Private Physician; When: 2 - 3 days; Reason: Recheck today's complaints, Continuance of care, Re-evaluation by your physician. - Problem is new. - Symptoms have improved. Signatures: Dispatcher [employer] EDKY Matthew Magallon MD MD [facility] Mitch Wilburn NP COMPLAINT INSPECTOR pm1 Mouna Joshi RN RN Joo Samano RN RN jl7 Corrections: (The following items were deleted from the chart) 14:51 12:43 Urine Test ordered. pm1 hb 15:35 15:04 11/20/2019 15:04 Discharged to Home. Impression: Unspecified abdominal pain; hb Vomiting. Condition is Stable. Forms are Medication Reconciliation Form, Thank You Letter, Antibiotic Education, Prescription Opioid Use. Follow up: Emergency Department; When: As needed; Reason: Worsening of condition. Follow up: Private Physician; When: 2 - 3 days; Reason: Recheck today's complaints, Continuance of care, Re-evaluation by your physician. Problem is new. Symptoms have improved. pm1
--- NOTE | 2019-11-20 15:04 | ER ---
Nurse's Notes [facility] Name: Yessenia Aleman Age: 59 yrs Sex: Female : 1960 Arrival Date: 11/20/2019 Time: 11:44 Bed 6 Private MD: Jeannie Slade Diagnosis: Unspecified abdominal pain;Vomiting Presentation: 11/19 12:20 Chief complaint: Patient states: Epigastric pain, radiates to RUQ, N/V x 3 days. "I've jl7 been dx with pancreatitis in the past and that's what it feels like.". Coronavirus screen: Client denies travel out of the [place] in the last 14 days. At this time, the client does not indicate any symptoms associated with coronavirus-19. Ebola Screen: No symptoms or risks identified at this time. Initial Sepsis Screen: Does the patient meet any 2 criteria? No. Patient's initial sepsis screen is negative. Does the patient have a suspected source of infection? No. Patient's initial sepsis screen is negative. Risk Assessment: Do you want to hurt yourself or someone else? Patient reports no desire to harm self or others. Onset of symptoms was November 17, 2019. Care prior to arrival: None. Transition of care: patient was not received from another setting of care. 12:20 Method Of Arrival: Ambulatory [facility] 12:20 Acuity: HOLLI 3 jl7 Triage Assessment: 12:24 General: Appears in no apparent distress. uncomfortable, Behavior is cooperative, jl7 appropriate for age, anxious. Pain: Complains of pain in epigastric area Pain radiates to right upper quadrant Pain currently is 7 out of 10 on a pain scale. GI: Reports nausea, vomiting, Patient currently denies diarrhea. Historical: - Allergies: 12:24 Codeine; jl7 - Home Meds: 12:24 gabapentin 300 mg Oral cap 1 cap daily [Active]; Lexapro 20 mg Oral tab 1 tab [Active]; jl7 losartan 100 mg Oral tab 1 tab once daily [Active]; [place] 10-325 mg Oral tab 1 tab twice a day [Active]; Seroquel 300 mg Oral tab 1 tab once daily [Active]; - PMHx: 12:24 Anxiety; Arthritis; biliary chirrosis; biliary disease; CHF; Chronic Pancreatitis; jl7 Hypertension; Pancreatitis; Pneumonia; - PSHx: 12:24 Cholecystectomy; Appendectomy; jl7 - Immunization history:: Adult Immunizations not up to date. - Social history:: Smoking status: Patient denies any tobacco usage or history of. Patient/guardian denies using alcohol, street drugs. Screenin:33 Abuse screen: Denies threats or abuse. Denies injuries from another. Nutritional hb screening: No deficits noted. Tuberculosis screening: No symptoms or risk factors identified. Fall Risk None identified. Assessment: 12:44 General: Appears in no apparent distress. uncomfortable, Behavior is calm, cooperative. hb Pain: Pain currently is 7 out of 10 on a pain scale. Neuro: Level of Consciousness is awake, alert, obeys commands, Oriented to person, place, time, situation. Cardiovascular: Capillary refill < 3 seconds Patient's skin is warm and dry. Respiratory: Airway is patent Respiratory effort is even, unlabored, Respiratory pattern is regular, symmetrical. GI: Abdomen is non-distended, Abd is soft X 4 quads tender RUQ. : No signs and/or symptoms were reported regarding the genitourinary system. EENT: No signs and/or symptoms were reported regarding the EENT system. Derm: Skin is pink, warm \\T\\ dry. Musculoskeletal: No signs and/or symptoms reported regarding the musculoskeletal system. 13:45 Reassessment: Patient appears in no apparent distress at this time. Patient and/or hb family updated on plan of care and expected duration. Pain level reassessed. Patient is alert, oriented x 3, equal unlabored respirations, skin warm/dry/pink. 14:52 Reassessment: Patient appears in no apparent distress at this time. Patient and/or hb family updated on plan of care and expected duration. Pain level reassessed. Patient is alert, oriented x 3, equal unlabored respirations, skin warm/dry/pink. Vital Signs: 12:20 BP 150 / 103; Pulse 87; Resp 17; Temp 98.4; Pulse Ox 98% ; Weight 77.11 kg; Height 5 jl7 ft. (152.40 cm); Pain 7/10; 14:30 BP 135 / 71; Pulse 78; Resp 15; Pulse Ox 100% ; Pain 8/10; hb 12:20 Body Mass Index 33.20 (77.11 kg, 152.40 cm) 7 ED Course: 11:44 Patient arrived in ED. ag5 11:46 Jeannie Slade MD is Private Physician. ag5 12:22 Triage completed. jl7 12:24 Arm band placed on right wrist. jl7 12:34 Mitch Wilburn NP is PHCP. pm1 12:34 Matthew Magallon MD is Attending Physician. pm1 12:49 Initial lab(s) drawn, by mt, sent to lab. Inserted saline lock: 20 gauge in left 3 antecubital area, using aseptic technique. Blood collected. 12:54 Joo Samano RN is Primary Nurse. jl7 13:33 Patient has correct armband on for positive identification. Bed in low position. Call hb light in reach. Side rails up X 1. 15:34 No provider procedures requiring assistance completed. IV discontinued, intact, hb bleeding controlled, No redness/swelling at site. Pressure dressing applied. Administered Medications: 13:01 Drug: fentaNYL (PF) 50 mcg Route: IVP; Site: right antecubital; hb 13:30 Follow up: Response: No adverse reaction hb 13:01 Drug: Zofran (Ondansetron) 4 mg Route: IVP; Site: left antecubital; hb 13:33 Follow up: Response: No adverse reaction hb 13:01 Drug: NS 0.9% 1000 ml Route: IV; Rate: 1000 ml; Site: left antecubital; hb 14:51 Drug: Phenergan 12.5 mg Route: IVP; Site: left antecubital; hb 15:22 Follow up: Response: No adverse reaction hb 14:51 Drug: fentaNYL (PF) 50 mcg Route: IVP; Site: left antecubital; hb 15:22 Follow up: Response: No adverse reaction hb Outcome: 15:04 Discharge ordered by MD. pm1 15:34 Discharged to home via wheelchair. hb 15:34 Condition: stable 15:34 Discharge instructions given to patient, Instructed on discharge instructions, follow up and referral plans. medication usage, Demonstrated understanding of instructions, follow-up care, medications, Prescriptions given X 2. 15:35 Patient left the ED. hb Signatures: Mitch Wilburn NP SCOOPER pm1 Mouna Joshi RN RN hb Joo Samano RN RN 7 Susan Reddy dh3 Shahriar Hardwick ag5
[2019-11-20 15:44] LABS: Urine Blood 1+ (NEG); Urine Glucose NEGATIVE (NEG); Urine Protein NEGATIVE (NEG)
[2019-11-20 15:48] VITALS: TEMP 98.4
[2019-11-20 15:52] VITALS: BP 135/71; O2SAT 100
[2019-11-23] MEDS ORDERED: VALACYCLOVIR 500 MG TAB ONE (08:22)
[2019-11-23] MEDS ORDERED: HYDROCODONE/APAP 10/325 TAB ONE (08:22)
== END 2019-11-20 15:35 | disposition home or self-care (01) ==
LOC: ER 11:42
DX: R11.2 Nausea with vomiting, unspecified (principal); I10 Essential (primary) hypertension; I50.9 Heart failure, unspecified; Z88.5 Allergy status to narcotic agent; F41.9 Anxiety disorder, unspecified
CPT/HCPCS: 85025; 80048; 36415; 82565; 80076; 81003; 83690; 74177; 99284; Q9967; J2550; J3010 ×2; J7030; J2405

== ENCOUNTER 2019-12-14 17:11 | Emergency (ER) | payer OTHER ==
[2011-11-06 03:57] VITALS: BP 139/94
--- OUTSIDE RECORDS SUMMARY | 2019-12-14 17:15 | XMS REPORT | Continuity of Care Document ---
:1960 Author Organization [facility] t Address [address] [place] [address] Care Team Providers Name Role Phone Maxine [...] moria l [facility] ent [facility] Chronic Chronic Diagnosis [facility] pancreatit Shari kes - is, is, Memoria unspecifie unspecifie l d d [facility] pancreatit pancreatit en t is type is type Clinics Primary Primary Problem Active [facility] Iron Iron Problem Active [facility] deficiency deficiency Shari kes - anemia, anemia, Memoria unspecifie unspecifie l d iron d iron [facility] deficiency deficiency en t anemia anemia Clinics type type Seasonal Seasonal Diagnosis Active [facility] allergies [facility] Nonadheren Nonadheren Diagnosis Active [facility] ce to ce to [facility] - medication medication [facility] Elevated Elevated Diagnosis Active [facility] liver liver [facility] - enzymes enzymes [facility] Tremor Tremor Diagnosis Active [facility] Canker Canker Diagnosis Active [facility] sores oral sores oral [facility]ari kes [facility] Allergies, Adverse Reactions, Alerts This patient has no known allergies or adverse reactions. Medications Ordered Filled Start Stop Current Ordering Indication Dosage Frequency Signature Comments Components Source Medication Medication Date Date Medication? Clinician (SIG) Name Name Chlorhexidi Chlorhexidi 2020-0 2020- Yes Na Slade [address] ne ne 6 06-30 swish and [facility] - Gluconate Gluconate 00:00: 00:00 spit Ga mori [facility] Losartan Losartan Yes Na Slade [address] [facility] Potassium Potassium [facility] Lexapro Lexapro Yes Na Slade [address] [facility] Seroquel XR Seroquel XR Yes Na Slade [address] in the [facility] evening [facility] Phenergan Phenergan Yes Na Slade one tablet [facility] k[facility] ent [facility] Doxycycline Doxycycline Yes Na Slade [...] ID 2019-10-06 2019-10-06 [facility] [id number] 10:40:00 10:40:00 [facility] [employer] [facility] Medicine l Medicine Outpati ent Clinics 2019-09-17 2019-09-17 [facility] [id number] 10:24:00 10:24:00 [facility] Medicine l Medicine Outpati ent Clinics 2019-08-21 2019-08-21 Emergency [facility] [id number] 19:42:19 23:51:00 Gabriele Guidry 350.1.13.10 [place] 4.2.7.2.686 [place] [id number] 2019-07-14 2019-07-14 [facility] [id number] 15:00:00 15:00:00 RE2 [facility] Medicine l Medicine Outpati ent Clinics 2019-06-25 2019-06-25 Emergency [facility] [id number] 16:52:11 20:04:00 Grisel Guidry 350.1.13.10 [place] 4.2.7.2.686 [place] [id number] 2019-06-19 2019-06-19 [facility] [id number] 13:58:11 19:09:00 Skyler Guidry 350.1.13.10 [place] 4.2.7.2.686 [place] [id number] 2019-06-19 2019-06-19 Orders Doctor JAQUELIN [id number] 00:00:00 00:00:00 Only Unassigned, KATHIE 350.1.13.10 [place] [address]686 [id number] 2019-05-19 2019-05-19 Emergency Chavarria, [facility] [id number] 18:29:04 21:26:00 Gary Guidry 350.1.13.10 [place] 4.2.7.2.686 [place] [id number] 2019-03-02 2019-03-02 [facility] [id number] [address] 10:40:00 10:40:00 t [employer] [facility] 2019-02-04 2019-02-04 [facility] [id number] 10:55:00 10:55:00 [employer] [facility] 2018-12-24 2018-12-24 [place] [id number] 00:00:00 00:00:00 [facility] 350.1.13.10 Surgical 4.2.7.2.686 [facility] [id number] hazel Guidry 2018-10-07 2018-10-07 [facility] [id number] 11:00:00 11:00:00 t [employer] - [employer] [facility] Medicine Outpati ent Clinics 2018-07-28 2018-07-28 [facility] [id number] 09:57:00 09:57:[address] [facility] 2018-07-25 2018-07-25 [facility] [id number] 14:40:00 14:40:00 t [employer] [facility] Results Test Description Test Time Test Comments Results Result Comments Source Culture, Urine 2017-08-07 15:57:00 Test Item Value Reference Range Interpretation Comme nts Culture, Urine (test code = URC) NF Culture, Urine (test code = URC1) 10 NSF * This is a n EDITED result. * A prior result th at was reported as final has been change d. [id number] 22:53:00 Test Item Value Reference Range Interpretation [...] = UACAST) CAST LPF Urine Source: Urine [id number] SURGICAL PATHOLOGY, LEVEL [id number] 14:31:[address] [address] Laboratory Printed: 07/09/[address] [place] [address] DAEMPathology Page: 1 Patient: ZEKE ROMERO Birthdate: 1960 Age/Sex: 56/F Spec#: [id number]: HERMES SALAZAR Specimen Date: 07/08/17 [...] [place] Entered by:07/09/17 - 1430 MAY PROCEDURES: 60886,03047/4 Patient: ZEKE ROMERO Re07/03/17Loc: T4-A MR#: [id number] CONTINUED ON NEXT PAGE Dis: 07/09/17ta: DIS IN - [address] [address] Laboratory Printed: 07/09/[address] [place] [address] DAEMPathology Page: 2 Patient: ZEKE ROMERO [id number] (Continued) GROSS DESCRIPTION A. LIVER BIOPSY LEFT [...] by: DANII SHAHID Entered by:07/08/17 - 1316 [facility].Y MICROSCOPIC DESCRIPTION A microscopic examination was performed to arrive at the diagnostic conclusion reported. Signed ___ ____(Electronically Signed) Kelvin 07/09/17 Patient: ZEKE ROMERO Re07/03/17Loc: T4-A MR#: [id number] END OF REPORT Dis: 07/09/17ta: DIS ZKEsoltdkyc5900-00-01 05:13:00 Test Item Value Reference Range Interpretation [...] U/L 8-55 H = ALT) Reference Lab [id number] 04:14:00 Test Item Value Reference Range Interpretation Comments Reference Lab 10 U/mL 0-35 Laurent ECLIA Testing (test code methodolo gyPerformed at: HD = CA199) - [facility] lv2926 [facility], [place] [id number] Di aimee: Chico Suero MD, Phone : [phone] Reference Lab [id number] 16:14:00 Test Item Value Reference Range Interpretation Comments Reference Lab Testing 128.5 Units 0.0-20.0 H (test code = MARLON) Negative 0.0 - 20.0 Equivocal 20.1 - 24.9 Positive >24.9Mitochondr ial (M2) Antibodies are found in 90-96% ofpatients with primary biliary cirrhosis.Perfo rmed at: [facility] rp [address]awv28[address] [place], [place] [id number] Director: Pj Rider MD, [facility] ne: [phone] Reference Lab [id number] 16:14:00 Test Item Value Reference Range Interpretation [...] testing of p ositive sera with both IL-3 and MPO-ANCA enzyme immunoassays. A s many as 5% serumsamples are positive only b y EIA. Ref. AM J Clin Jxpmbl1564;111: 507-513. Reference Lab <1:20 titer Neg:<1:20 The atypical p ANCA pattern Testing (test has been obser chelita in code = ATANCA) asignificant percentage of patients with u lcerative colitis,primary sclerosing cholangitis and autoimmune hepatitis.Perfo rmed at: [facility] [address]prt44[address] [place], [place] [id number] Di aimee: Chester ramírez MD, Phone: [phone] [id number] 05:12:00 Test Item Value Reference Range Interpretation [...] 8-55 H code = ALT) Reference Lab [id number] 22:07:00 Test Item Value Reference Range Interpretation Comments Reference Lab Testing 785 IU/L 39-117 H (test code = ISOALKT) Reference Lab Testing 25 % 14-68 (test code = ISOALKBT) Reference Lab Testing 74 % 18-85 (test code = ISOALKLT) Reference Lab Testing 1 % 0-18 Perfor med at: HD - (test code = ISOALKIT) [facility] [place] [address] [place], [place] [id number] b Director: Chico Suero MD, Phone: [phone] [id number] Di aimee: Chester ramírez MD, Phone: [phone] Ptkipcnjt0393-69-76 11:48:00 Test Item Value Reference Range Interpretation [...] code = ALT) 92 U/L 8-55 H [id number] 06:08:00 Test Item Value Reference Range Interpretation [...] 8.5 mg/dL 7.8-10.44 N code = CA) Hiyofikys0386-14-27 06:06:00 Test Item Value Reference Range Interpretation [...] code = ALT) 129 U/L 8-55 H [id number] 05:57:00 Test Item Value Reference Range Interpretation [...] code = BASO#) 0.0 thou/uL 0.0-0.2 N Nhpoejtbouc6774-69-52 05:55:00 Test Item Value Reference Range Interpretation [...] - 4. 0 CRITICAL: > 4.0 Anticoagulant? XZTWCzfbombpm9948-03-78 05:36:00 Test Item Value Reference Range Interpretation [...] 8.9 mg/dL 7.8-10.44 N code = CA) Ixayvvsvu8249-31-08 05:33:00 Test Item Value Reference Range Interpretation [...] code = ALT) 160 U/L 8-55 H Jarujthaxf7584-96-68 05:28:00 Test Item Value Reference Range Interpretation [...] 0.1 thou/uL 0.0-0.2 N Chemistry - Elizabeth Kijwhfk2982-14-98 13:02:00 Test Item Value Reference Range Interpretation [...] hod: Enzyme Linked Fluorescent Immunoassay (Elizabeth)Reference s: [employer] Elizabeth [employer] - Directions forU , June,August 02, Take the Interview ic. Rzwaccnta1109-19-71 05:00:00 Test Item Value Reference Range Interpretation [...] code = ALT) 144 U/L 8-55 H Wrfdiqkin9762-55-32 04:50:00 Test Item Value Reference Range Interpretation [...] 8.4 mg/dL 7.8-10.44 N code = CA) Lszycizhjg4556-25-74 04:39:00 Test Item Value Reference Range Interpretation [...] code = BASO#) 0.0 thou/uL 0.0-0.2 N Qyltedkkf6112-68-67 17:07:00 Test Item Value Reference Range Interpretation Comments Chemistry (test code = IGG) 1032.00 mg/dL 552-1631 N Bsnlbhiws9615-31-64 17:07:00 Test Item Value Reference Range Interpretation Comments Chemistry (test code = IGM) 215.00 mg/dL 33-293 N Wpchjkvrne9446-64-80 00:50:00 Test Item Value Reference Range Interpretation [...] UABLD) Urine Source: Urine Clean [employer] - Hwmweexv6735-01-26 00:25:00 Test Item Value Reference Range Interpretation Comments Chemistry - Specials (test Non-Reactive NonReactive code = THEPAIGM) Chemistry - Specials (test Non-Reactive S/CO NonReactive code = THBSAG) Chemistry - Specials (test Non-Reactive NonReactive code = INTHBCM) Chemistry - Specials (test Non-Reactive NonReactive code = INTHEPC) [id number] 22:12:00 Test Item Value Reference Range Interpretation [...] code 196 U/L 8-55 H = ALT) [id number] 22:12:00 Test Item Value Reference Range Interpretation Comments Chemistry (test code = LIP) 22 U/L 8-78 N Hqfaiflgii5040-61-15 21:50:00 Test Item Value Reference Range Interpretation [...] code = BASO#) 0.1 thou/uL 0.0-0.2 N Xuvzqakbp9228-66-29 22:49:00 Test Item Value Reference Range Interpretation [...] 78 U/L 8-55 H code = ALT) Xnszeyuaq3725-44-80 22:49:00 Test Item Value Reference Range Interpretation Comments Chemistry (test code = LIP) 12 U/L 8-78 N Izlrdatkhl8564-94-91 22:24:00 Test Item Value Reference Range Interpretation [...] code = BASO#) 0.0 thou/uL 0.0-0.2 N Uppevqtakq8444-46-12 22:00:00 Test Item Value Reference Range Interpretation [...] UABLD) Negative Negative Urine Source: Urine Clean XtdkeNlvzflcc2859-07-03 09:28:00 Test Item Value Reference Range Interpretation Comments Accuchek (test code = ACU) 99 mg/dL 70-110 N Qiwdpnvhjz0276-09-30 09:14:00 Test Item Value Reference Range Interpretation [...] UABLD) Negative Negative Urine Source: Urine Clean CwvppLtrtyunfar8385-37-15 21:28:00 Test Item Value Reference Range Interpretation [...] UABLD) Negative Negative Urine Source: Urine Clean OdqznMhgrfiasd2688-44-69 21:09:00 Test Item Value Reference Range Interpretation [...] 95 U/L 8-55 H code = ALT) Fjgmpacaw2933-99-13 21:09:00 Test Item Value Reference Range Interpretation Comments Chemistry (test code = LIP) 39 U/L 8-78 N Ezivjmqzos2470-79-85 20:49:00 Test Item Value Reference Range Interpretation [...] code = BASO#) 0.0 thou/uL 0.0-0.2 N Agopodocaa0411-94-58 21:34:00 Test Item Value Reference Range Interpretation [...] Presu mptive positive ur[facility]. Urine Source: Urine Clean UpirsKtgyqsmaqf4712-75-56 19:17:00 Test Item Value Reference Range Interpretation [...] = UABLD) Negative Negative Urine Source: Urine SagmbdGwbhgcnlh5106-72-04 18:48:00 Test Item Value Reference Range Interpretation [...] code 84 U/L 8-55 H = ALT) Ljpmwinev5600-65-71 18:48:00 Test Item Value Reference Range Interpretation Comments Chemistry (test code = JORGE) 53.0 U/L 25-125 N [id number] 18:48:00 Test Item Value Reference Range Interpretation Comments Chemistry (test code = LIP) 10 U/L 8-78 N Adpeqepyqj7430-88-32 18:19:00 Test Item Value Reference Range Interpretation [...] = BASO#) 0.1 thou/uL 0.0-0.2 N Culture, Rqiqn8739-65-30 10:22:00 Test Item Value Reference Range Interpretation Comments Culture, Urine (test code = URC) NF N Culture, Urine (test code = URC1) 10 MSF N [id number] 17:38:00 Test Item Value Reference Range Interpretation Comments Chemistry (test code = PHOS) 2.9 mg/dL 2.3-4.7 N [id number] 17:04:00 Test Item Value Reference Range Interpretation [...] H = ALT) Chemistry - BNP, HgbA1c, [id number] 17:04:00 Test Item Value Reference Range Interpretation Comments Chemistry - BNP, 4.9 % 4.0-6.0 N Therapeutic goals for glycemic HgbA1c, PTHi (test control ( ADA)Adults:- Goal of code = XMNG2JL) therapy: Les s than 7.0% HbA1c- Action suggeste d: Greater than 8.0% FoE8zEjauz tric patients:- Toddlers and pr eschoolers: Less than 8.5% (but Greater than 7.5%)- Katelynn ool age (6-12 years): Less th an 8%- Adolescents and young adults (13-19 years): Less than 7.5%Diagnosing diabetes (ADA)- HbA1c: Greater than or equal to 6.5% Values of 5.7 - 6.4% indicate HIGH risk for developing DiabetesInterna tional Expert Committee Repor t on the Role of the D7ONjapl in the Diagnosis of Di abetes. Diabetes Care 2009July;32(7): 1327-1334ADA, Diagnosis cla ssification of diabetes [facility].Diabetes Care 2010; 33 S uppl 1:S62 [id number] 16:59:00 Test Item Value Reference Range Interpretation Comments Chemistry (test code = CRP) 1.16 mg/dL = or < 0.5 H What test does the doctor want? C-REACTIVE PROTEIN (CRP)Sqgzmtaryx4763-93-48 16:53:00 Test Item Value Reference Range Interpretation [...] HPF None Seen Urine Source: Urine Clean HhitfBjcqhykqtc5502-41-37 16:46:00 Test Item Value Reference Range Interpretation [...] code = BASO#) 0.1 thou/uL 0.0-0.2 N Yonwebrrgl1525-85-33 21:59:00 Test Item Value Reference Range Interpretation [...] Urine Clean CatchSepsis - Lactic Acid >2 [id number] 23:59:00 Test Item Value Reference Range Interpretation Comments Sepsis - Lactic Additional Lactate testin g will be Acid >2 Rflx performed in 3 hrs (test code = according to alfred cox RHMWU0F) SepsisProtocol. [id number] 21:12:00 Test Item Value Reference Range Interpretation Comments Chemistry (test code = JORGE) 59.0 U/L 25-125 N Sqwxorqfd4719-68-64 20:59:00 Test Item Value Reference Range Interpretation [...] 87 U/L 8-55 H code = ALT) [id number] 20:59:00 Test Item Value Reference Range Interpretation Comments Chemistry (test code = LIP) 32 U/L 8-78 N Chemistry - [id number] 20:59:00 Test Item Value Reference Range Interpretation Comments Chemistry - Lactate (test code = 2.1 mmol/L 0.5-2.2 N LACTSEP-T) [id number] 20:43:00 Test Item Value Reference Range Interpretation [...] = UABLD) Negative Negative Urine Source: Urine PyodylMlrioivanr2119-40-28 20:37:00 Test Item Value Reference Range Interpretation [...]
--- OUTSIDE RECORDS SUMMARY | 2019-12-14 17:15 | XMS REPORT ---
[...] Status Dosage System Date Date Seroquel XR [facility] 26812005451 300 MG Orally Active 1 tablet Once a day in the evening Lexapro [facility] 28948507218 20 MG Orally Active 1 table t Once a day Flonase [facility] 30813876842 50 MCG/ACT Active 2 spray Nasally Once a in each day nostril Robaxin-[address] [facility] 12234261161 750 MG Orally Active 1 tablet every 4 hrs Losartan [facility] 29355288025 100 MG Active TAKE 1 Potassium TABLET BY MOUTH EVERY DAY Phenergan [facility] [address]-98 25mg Po Q 12 Active one hours tablet Doxycycline ND 51856512381 100 MG Orally Active 1 capsule Hyclate twice a day Diazepam [facility] 06911032806 5 MG Orally Active 1 table t Once a day prn as needed panic attacks Gabapentin ND 87966963674 300 MG Orally Active 1 c apsule Once a day PredniSONE ND 89378522282 10 MG Orally Active 2 ta blet Once a day daily x 5 days then one tablet daily x 5 days Losartan ND 19359234234 100 MG Orally Active 1 tab let Potassium Once a day Chlorhexidine [facility] 91839914747 0.12 % Mouth October 05September Active 15 ML Gluconate twice a day 2019 and 2019 spit Azithromycin ND 55720926060 250 MG Orally Active 2 tablets Once a day on the first day, then 1 tablet daily for 4 days Results No Known Results Summary Purpose eClinicalWorks Submission
[2019-12-14] MEDS ORDERED: FENTANYL CITR 100 MCG/2 ML ONE ×2 (18:11→19:38)
[2019-12-14] MEDS ORDERED: ONDANSETRON 4 MG/2 ML VIAL ONE (18:11)
[2019-12-14 18:37] LABS: Bilirubin Direct 0.7 mg/dL (0-0.2); Bilirubin Total 0.9 mg/dL (0.2-1.0); Potassium 4.4 mmol/L (3.5-5.1); Protein, Total 7.8 g/dL (6.4-8.2)
--- NOTE | 2019-12-14 18:42 | RAD REPORT ---
EXAM DESCRIPTION: CT - Spine Lumbar Wo Con - 12/14/2019 6:27 pm CLINICAL HISTORY: back pain COMPARISON: None. TECHNIQUE: Thin section axial imaging of the lumbar spine was performed. Sagittal and coronal recon struction images were generated and reviewed. All CT scans are performed using dose optimization technique as appropriate and may include automated exposure control or mA/KV adjustment according to patient size. FINDINGS: Lumbar bodies are normal in height. No acute fracture change. No lytic, sclerotic or expan sile destructive process seen. Slight lateral subluxation of the L4 body is similar to comparison. No paraspinal soft tissue mass. Degenerative gas is present in the L1-2 disc level. L4-5 disc space narrowing present. Central canal detail is inherently limited. No disc herniation suspected. Minimal disc bulge changes are present at L3-4 and to a greater extent at L4-5. Disc bulge is prominent in the right L4-5 forame n. No central spinal stenosis. Prominent facet joint degenerative change present at L4-5 and L5-S1. N o pars defects identified. IMPRESSION: No compression fracture. No acute vertebral body finding. Prominent facet joints in the lower lumbar spine. No pars defect. Multilevel degenerative disc disease most pronounced at L4-5. Overall findings are not substantially different from December 2018.
[2019-12-14 19:17] LABS: Absolute Lymphocytes (CBC) 0.5 K/uL (0.7-4.9); Basophils % 0.6 % (0-1.3); Hematocrit 32.1 % (36.0-45.0); Lymphocytes % 15.3 % (15.3-44.8); MPV 7.8 fL (7.6-11.3); RBC Red Blood Cell Count 3.36 M/uL (3.86-4.86)
--- NOTE | 2019-12-14 19:32 | ER ---
Nurse's Notes [facility] Name: Yessenia Aleman Age: 59 yrs Sex: Female : 1960 Arrival Date: 12/14/2019 Time: 17:13 Bed 13 Private MD: Jeannie Slade Diagnosis: Low back pain Presentation: 12/13 17:26 Chief complaint: Patient states: "about a week ago Dr. Nicholson gave me some shots in aa5 my back and ever since then I've been hurting so bad and it's making me shake". pt c/o pain to back and nausea. Coronavirus screen: Client denies travel out of the [place] in the last 14 days. At this time, the client does not indicate any symptoms associated with coronavirus-19. Ebola Screen: Patient negative for fever greater than or equal to 101.5 degrees Fahrenheit, and additional compatible Ebola Virus Disease symptoms. Initial Sepsis Screen: Does the patient meet any 2 criteria? No. Patient's initial sepsis screen is negative. Does the patient have a suspected source of infection? No. Patient's initial sepsis screen is negative. Risk Assessment: Do you want to hurt yourself or someone else? Patient reports no desire to harm self or others. Onset of symptoms was November 2019. 17:26 Acuity: HOLLI 3 aa5 17:26 Method Of Arrival: Ambulatory aa5 Historical: - Allergies: 17:28 Codeine; aa5 - PMHx: 17:28 Anxiety; Arthritis; biliary chirrosis; biliary disease; CHF; Chronic Pancreatitis; aa5 Hypertension; Pancreatitis; Pneumonia; - PSHx: 17:28 Cholecystectomy; Appendectomy; aa5 - Immunization history:: Adult Immunizations unknown. - Social history:: Smoking status: Patient denies any tobacco usage or history of. Screenin:22 Abuse screen: Denies threats or abuse. Denies injuries from another. Nutritional jr10 screening: No deficits noted. Tuberculosis screening: No symptoms or risk factors identified. Fall Risk None identified. Assessment: 18:23 General: Appears in no apparent distress. Behavior is restless. Pain: Complains of pain jr10 in back Pain began 1 week ago. Neuro: Level of Consciousness is awake, alert, obeys commands, Oriented to person, place, time, situation, Appropriate for age Speech is normal. Cardiovascular: No deficits noted. Denies chest pain. Respiratory: No deficits noted. Airway is patent Respiratory effort is even, unlabored, Respiratory pattern is regular, symmetrical. GI: Reports nausea. : No deficits noted. No signs and/or symptoms were reported regarding the genitourinary system. EENT: No deficits noted. No signs and/or symptoms were reported regarding the EENT system. Derm: No deficits noted. No signs and/or symptoms reported regarding the dermatologic system. Musculoskeletal: Reports "shaking" x1 week "since I had that injection in my back". 19:00 General: Appears in no apparent distress. Behavior is restless. Pain: Complains of pain ea in back. Neuro: Level of Consciousness is awake, alert, obeys commands, Oriented to person, place, time, situation. Cardiovascular: Patient's skin is warm and dry. Respiratory: Airway is patent Respiratory effort is even, unlabored, Respiratory pattern is regular, symmetrical. 19:59 Reassessment: Patient and/or family updated on plan of care and expected duration. Pain ea level reassessed. Patient is alert, oriented x 3, equal unlabored respirations, skin warm/dry/pink. Discharge instruction given to patient, verbalized the understanding of instruction. Pt left ED via wheelchair, tolerating well. Vital Signs: 17:26 BP 120 / 92; Pulse 83; Resp 18 S; Temp 98.6(O); Pulse Ox 96% on R/A; Weight 79.38 kg aa5 (R); Height 5 ft. 5 in. (165.10 cm) (R); Pain 8/10; 18:48 BP 142 / 87; Pulse 72; Resp 18; Pulse Ox 95% on R/A; jr10 19:30 BP 131 / 87; Pulse 68; Resp 18; Pulse Ox 98% on R/A; ea 17:26 Body Mass Index 29.12 (79.38 kg, 165.10 cm) aa5 ED Course: 17:13 Patient arrived in ED. ag5 17:13 Jeannie Slade MD is Private Physician. ag5 17:26 Arm band placed on. aa5 17:27 Triage completed. aa5 17:35 [facility]. pm1 17:35 Meek Fitzpatrick MD is Attending Physician. pm1 17:36 Yulia Lucia, LUCIUS is Primary Nurse. jr10 18:22 Patient has correct armband on for positive identification. Bed in low position. Call jr10 light in reach. Side rails up X2. Pulse ox on. NIBP on. 18:22 No provider procedures requiring assistance completed. Inserted saline lock: 20 gauge jr10 in right forearm, using aseptic technique. IV is patent, is intact, with good blood return, Flushed. 18:28 Spine Lumbar Wo Con In Process Unspecified. EDMS 19:06 Report given to LUCIUS Leung. jr10 19:31 Jose Nicholson MD is Referral Physician. pm1 19:55 IV discontinued, intact, bleeding controlled, No redness/swelling at site. Pressure ea dressing applied. Administered Medications: 18:43 Drug: fentaNYL (PF) 50 mcg Route: IVP; Site: right forearm; jr10 19:00 Follow up: Response: No adverse reaction ea 18:43 Drug: Zofran (Ondansetron) 4 mg Route: IVP; Site: right forearm; jr10 19:00 Follow up: Response: No adverse reaction ea 19:10 Drug: fentaNYL (PF) 50 mcg Route: IVP; Site: right antecubital; ea 19:59 Follow up: Response: No adverse reaction; Pain is decreased ea Outcome: 19:31 Discharge ordered by MD. pm1 20:01 Discharged to home ambulatory, with family. ea 20:01 Condition: stable 20:01 Discharge instructions given to patient, Instructed on discharge instructions, follow up and referral plans. Demonstrated understanding of instructions, follow-up care. 20:01 Patient left the ED. ea Signatures: Dispatcher [employer] EDMS Jacquie Abel RN RN aa5 Mitch Wilburn, RISK MANAGEMENT MANAGER RISK MANAGEMENT MANAGER pm1 Xochitl Rico RN RN ea Gaskin, Ajare ag5 Yulia Lucia, LUCIUS RN jr10 Corrections: (The following items were deleted from the chart) 17:27 17:26 BP 120 / 92; Pulse 83bpm; Resp 18bpm; Spontaneous; Pulse Ox 96% RA; Temp 98.6F aa5 Oral; aa5
--- NOTE | 2019-12-14 19:32 | EDPHYS ---
Physician Documentation [facility] Name: Yessenia Aleman Age: 59 yrs Sex: Female : 1960 Arrival Date: 12/14/2019 Time: 17:13 Bed 13 Private MD: Jeannie Slade ED Physician Meek Fitzpatrick HPI: 12/13 18:05 This 59 yrs old Female presents to ER via Ambulatory with complaints of Back pm1 Pain. 18:05 The patient presents with pain that is chronic. The symptoms are located in the low pm1 back. Onset: The symptoms/episode began/occurred Patient reports since steroid back injections by Dr. Nicholson. Patient with injections to back for chronic back pain on 11/19/2019. low back pain radiates to both legs. Associated signs and symptoms: Pertinent positives: pain is causing her hands to shake, Pertinent negatives: abdominal pain, chest pain, dysuria, fever, incontinence, numbness, tingling, headache. Modifying factors: The patient symptoms are alleviated by nothing, the patient symptoms are aggravated by movement. Severity of symptoms: in the emergency department the symptoms are unchanged. Historical: - Allergies: 17:28 Codeine; aa5 - PMHx: 17:28 Anxiety; Arthritis; biliary chirrosis; biliary disease; CHF; Chronic Pancreatitis; aa5 Hypertension; Pancreatitis; Pneumonia; - PSHx: 17:28 Cholecystectomy; Appendectomy; aa5 - Immunization history:: Adult Immunizations unknown. - Social history:: Smoking status: Patient denies any tobacco usage or history of. ROS: 18:05 Constitutional: Negative for fever, chills, and weight loss, Neck: Negative for injury, pm1 pain, and swelling, Cardiovascular: Negative for chest pain, palpitations, and edema, Respiratory: Negative for shortness of breath, cough, wheezing, and pleuritic chest pain, Abdomen/GI: Negative for abdominal pain, nausea, vomiting, diarrhea, and constipation. 18:05 : Negative for injury, bleeding, discharge, and swelling, MS/Extremity: Negative for injury and deformity, Skin: Negative for injury, rash, and discoloration. 18:05 Back: Positive for pain at rest, pain with movement, of the low back area, Negative for decreased range of motion. 18:05 Neuro: Negative for altered mental status, dizziness, headache, numbness, tingling, weakness. Exam: 18:05 Constitutional: This is a well developed, well nourished patient who is awake, alert, pm1 and in no acute distress. Head/Face: Normocephalic, atraumatic. Neck: Trachea midline, no thyromegaly or masses palpated, and no cervical lymphadenopathy. Supple, full range of motion without nuchal rigidity, or vertebral point tenderness. No Meningismus. 18:05 Skin: Warm, dry with normal turgor. Normal color with no rashes, no lesions, and no evidence of cellulitis. MS/ Extremity: Pulses equal, no cyanosis. Neurovascular intact. Full, normal range of motion. 18:05 Cardiovascular: Exam negative for acute changes, Rate: normal, Rhythm: regular, Pulses: no pulse deficits are appreciated, Edema: is not appreciated. 18:05 Respiratory: Exam negative for acute changes, respiratory distress, shortness of breath. 18:05 Abdomen/GI: Exam negative for acute changes, Inspection: abdomen appears normal, Palpation: abdomen is soft and non-tender, in all quadrants. 18:05 Back: pain, that is mild, of the lumbar area, normal spinal alignment noted. 18:05 Neuro: Exam negative for acute changes, Orientation: is normal, Mentation: is normal, Motor: is normal, moves all fours, Sensation: is normal, no obvious gross deficits. Vital Signs: 17:26 BP 120 / 92; Pulse 83; Resp 18 S; Temp 98.6(O); Pulse Ox 96% on R/A; Weight 79.38 kg aa5 (R); Height 5 ft. 5 in. (165.10 cm) (R); Pain 8/10; 18:48 BP 142 / 87; Pulse 72; Resp 18; Pulse Ox 95% on R/A; jr10 19:30 BP 131 / 87; Pulse 68; Resp 18; Pulse Ox 98% on R/A; ea 17:26 Body Mass Index 29.12 (79.38 kg, 165.10 cm) aa5 MDM: 17:36 Patient medically screened. pm1 19:30 Data reviewed: vital signs. Data interpreted: Pulse oximetry: on room air is 95 %. pm1 Interpretation: normal. Counseling: I had a detailed discussion with the patient and/or guardian regarding: the historical points, exam findings, and any diagnostic results supporting the discharge/admit diagnosis, lab results, radiology results, the need for outpatient follow up, for definitive care, a hand painter, to return to the emergency department if symptoms worsen or persist or if there are any questions or concerns that arise at home. 12/13 17:48 Order name: Basic Metabolic Panel; Complete Time: 18:58 pm1 12/13 17:48 Order name: CBC with Diff; Complete Time: 19:24 pm1 12/13 17:48 Order name: Hepatic Function; Complete Time: 18:58 pm1 12/13 18:01 Order name: Spine Lumbar Wo Con; Complete Time: 18:58 EDMS 12/13 17:48 Order name: IV Saline Lock; Complete Time: 18:22 pm1 12/13 17:48 Order name: Labs collected and sent; Complete Time: 18:22 pm1 12/13 18:23 Order name: Labs - recollect needed: recollect cbc; Complete Time: 19:28 bd Administered Medications: 18:43 Drug: fentaNYL (PF) 50 mcg Route: IVP; Site: right forearm; jr10 19:00 Follow up: Response: No adverse reaction ea 18:43 Drug: Zofran (Ondansetron) 4 mg Route: IVP; Site: right forearm; jr10 19:00 Follow up: Response: No adverse reaction ea 19:10 Drug: fentaNYL (PF) 50 mcg Route: IVP; Site: right antecubital; ea 19:59 Follow up: Response: No adverse reaction; Pain is decreased ea Disposition: 12/14 07:13 Co-signature as Attending Physician, Meek Fitzpatrick MD. rn Disposition: 12/14/19 19:31 Discharged to Home. Impression: Low back pain. - Condition is Stable. - Discharge Instructions: Chronic Back Pain. - Medication Reconciliation Form, Thank You Letter, Antibiotic Education, Prescription Opioid Use form. - Follow up: Emergency Department; When: As needed; Reason: Worsening of condition. Follow up: Jose Nicholson MD; When: 2 - 3 days; Reason: Recheck today's complaints, Continuance of care, Re-evaluation by your physician. - Problem is new. - Symptoms have improved. Signatures: Dispatcher [employer] EDMS Melita Sousa Roman, MD MD rn Calderon, Audri, RN RN jc5 Mitch Wilburn NP COAL BRIQUETTE MACHINE OPERATOR pm1 Xochitl Rico, RN RN Yulia Patel, RN RN jr10 Corrections: (The following items were deleted from the chart) 12/13 20:01 19:31 12/14/2019 19:31 Discharged to Home. Impression: Low back pain. Condition is ea Stable. Forms are Medication Reconciliation Form, Thank You Letter, Antibiotic Education, Prescription Opioid Use. Follow up: Emergency Department; When: As needed; Reason: Worsening of condition. Follow up: Jose Nicholson; When: 2 - 3 days; Reason: Recheck today's complaints, Continuance of care, Re-evaluation by your physician. Problem is new. Symptoms have improved. pm1
== END 2019-12-14 20:01 | disposition home or self-care (01) ==
LOC: ER 17:11
DX: M54.5 Low back pain (principal); I10 Essential (primary) hypertension; Z88.5 Allergy status to narcotic agent
CPT/HCPCS: 85025; 80048; 36415; 80076; 72131; J3010 ×2; J2405; 96374; 96375; 99284

== ENCOUNTER 2019-12-17 04:39 | Emergency (ER) | payer OTHER ==
--- OUTSIDE RECORDS SUMMARY | 2019-12-17 04:44 | XMS REPORT ---
[...] Status Dosage System Date Date Seroquel XR [facility] 72391261680 300 MG Orally Active 1 tablet Once a day in the evening Lexapro [facility] 18925287633 20 MG Orally Active 1 table t Once a day Flonase [facility] 30228414437 50 MCG/ACT Active 2 spray Nasally Once a in each day nostril Robaxin-[address] [facility] 37951890016 750 MG Orally Active 1 tablet every 4 hrs Losartan [facility] 16223756326 100 MG Active TAKE 1 Potassium TABLET BY MOUTH EVERY DAY Phenergan [facility] [address]-82 25mg Po Q 12 Active one hours tablet Doxycycline ND 83344384572 100 MG Orally Active 1 capsule Hyclate twice a day Diazepam [facility] 81943238200 5 MG Orally Active 1 table t Once a day prn as needed panic attacks Gabapentin ND 02511909752 300 MG Orally Active 1 c apsule Once a day PredniSONE ND 56209248514 10 MG Orally Active 2 ta blet Once a day daily x 5 days then one tablet daily x 5 days Losartan ND 06024636231 100 MG Orally Active 1 tab let Potassium Once a day Chlorhexidine [facility] 18862324949 0.12 % Mouth October 05September Active 15 ML Gluconate twice a day 2019 and 2019 spit Azithromycin ND 01239427984 250 MG Orally Active 2 tablets Once a day on the first day, then 1 tablet daily for 4 days Results No Known Results Summary Purpose eClinicalWorks Submission
--- OUTSIDE RECORDS SUMMARY | 2019-12-17 04:44 | XMS REPORT | Continuity of Care Document ---
:[address] [facility] t Address [address] [place] [address] Care Team Providers Name Role Phone Maxine [...] depression depression Me moria l [facility] ent [facility] Chronic Chronic Diagnosis [facility] pancreatit Shari kes - is, is, Memoria unspecifie unspecifie l d d [facility] pancreatit pancreatit en t is type is type Clinics Primary Primary Problem Active [facility] insomnia insomnia [facility] Iron Iron Problem Active [facility] deficiency deficiency Shari kes - anemia, anemia, Memoria unspecifie unspecifie l d iron d iron [facility] deficiency deficiency en t anemia anemia Clinics type type Seasonal Seasonal Diagnosis Active [facility] allergies allergies [facility] - Memoria [facility] Nonadheren Nonadheren Diagnosis Active [facility] ce to ce to [facility] - medication medication [facility] Elevated Elevated Diagnosis Active [facility] liver liver [facility] - enzymes enzymes [facility] Tremor Tremor Diagnosis Active [facility] - Memoria [facility] Canker Canker Diagnosis Active [facility] sores oral sores oral Shari kes - Memoria [facility] Allergies, Adverse Reactions, Alerts This patient has no known allergies or adverse reactions. Medications Ordered Filled Start Stop Current Ordering Indication Dosage Frequency Signature Comments Components Source Medication Medication Date Date Medication? Clinician (SIG) Name Name Chlorhexidi Chlorhexidi 2020-0 2020- Yes Na Slade [address] [facility] ne ne 6 06-30 swish and [facility] - Gluconate Gluconate 00:00: 00:00 spit Wy mori 00 :00 [facility] Losartan Losartan Yes Na Slade [address] [facility] Potassium Potassium [facility] Lexapro Lexapro Yes Na Slade [address] [facility] Seroquel XR Seroquel XR Yes Na Slade [address] in the [facility] - evening [facility] Phenergan Phenergan Yes Na Slade one tablet [facility] kes - Memoria [facility] ent [facility] Doxycycline Doxycycline Yes Na Slade 1 capsule [...] ID 2019-10-06 2019-10-06 [facility] [id number] 10:40:00 10:40:00 [employer] [facility] Medicine l Medicine Outpati ent Clinics 2019-09-17 2019-09-17 [facility] [id number] [facility] 10:24:00 10:24:00 [employer] [facility] Medicine l Medicine Outpati ent Clinics 2019-08-21 2019-08-21 Emergency [facility] [id number] 19:42:19 23:51:00 Gabriele Guidry [id number] [place] 4.2.7.2.686 [place] [id number] 2019-07-14 2019-07-14 [facility] [id number] [address] 15:00:00 15:00:00 [employer] [facility] Medicine l Medicine Outpati ent Clinics 2019-06-25 2019-06-25 Emergency [facility] [id number] 16:52:11 20:04:00 Grisel Guidry [id number] [place] 4.2.7.2.686 [place] [id number] 2019-06-19 2019-06-19 [facility] [id number] 13:58:11 19:09:00 Skyler Guidry [id number] [place] 4.2.7.2.686 [place] [id number] 2019-06-19 2019-06-19 Orders Doctor JAQUELIN [id number] 00:00:00 00:00:00 Only Unassigned, KATHIE 350.1.13.10 [place] [address]686 [id number] 2019-05-19 2019-05-19 Emergency [place], [facility] [id number] 18:29:04 21:26:00 Gary Guidry [id number] [place] 4.2.7.2.686 [place] [id number] 2019-03-02 2019-03-02 [facility] [id number] [address] 10:40:00 10:40:00 t [employer] [facility] Medicine Outpsychiatric ent Clinics 2019-02-04 2019-02-04 [facility] [id number] 10:55:00 10:55:00 t [employer] [facility] Medicine Outpsychiatric ent Clinics 2018-12-24 2018-12-24 [place] [id number] 00:00:00 00:00:00 [facility] [id number] Surgical 4.2.7.2.686 [facility] [id number] hazel Guidry 2018-10-07 2018-10-07 [facility] [id number] 11:00:00 11:00:00 t [employer] - [email or web address] [facility] Medicine Outpati ent Clinics 2018-07-28 2018-07-28 [facility] [id number] 09:57:00 09:57:[address] [facility] 2018-07-25 2018-07-25 [facility] [id number] 14:40:00 14:40:00 t [email or web address] [facility] Results Test Description Test Time Test Comments Results Result Comments Source Culture, Urine 2017-08-07 15:57:00 Test Item Value Reference Range Interpretation Comme nts Culture, Urine (test code = URC) NF Culture, Urine (test code = URC1) 10 NSF * This is a n EDITED result. * A prior result th at was reported as final has been change d. [id number] 22:53:00 Test Item Value Reference Range Interpretation [...] = UACAST) CAST LPF Urine Source: Urine [id number] SURGICAL PATHOLOGY, LEVEL [id number] 14:31:[address] [address] Laboratory Printed: 07/09/[address] [place] [address] DAEMPathology Page: 1 Patient: ZEKE ROMERO Birthdate: 1960 Age/Sex: 56/F Spec#: [id number]: HERMES SALAZAR Specimen Date: 07/08/17 [...] Conway Entered by:07/09/17 - 1430 MAY PROCEDURES: 45114,02092/4 Patient: ZEKE ROMERO Re07/03/17Loc: T4-A MR#: [id number] CONTINUED ON NEXT PAGE Dis: 07/09/17ta: DIS IN - [address] [address] Laboratory Printed: 07/09/[address] [place] [address] DAEMPathology Page: 2 Patient: ZEKE ROMERO [id number] (Continued) GROSS DESCRIPTION A. LIVER BIOPSY LEFT [...] by: DANII SHAHID Entered by:07/08/17 - 1316 [facility].Y MICROSCOPIC DESCRIPTION A microscopic examination was performed to arrive at the diagnostic conclusion reported. Signed ___ ____(Electronically Signed) Kelvin 07/09/17 Patient: ZEKE ROMERO Re07/03/17Loc: T4-A MR#: [id number] END OF REPORT Dis: 07/09/17ta: DIS [id number] 05:13:00 Test Item Value Reference Range Interpretation [...] U/L 8-55 H = ALT) Reference Lab [id number] 04:14:00 Test Item Value Reference Range Interpretation Comments Reference Lab 10 U/mL 0-35 Laurent ECLIA Testing (test code methodolo gyPerformed at: HD = CA199) - [facility] uc[facility], [place] [id number] Di aimee: Chico Suero MD, Phone : [phone] Reference Lab [id number] 16:14:00 Test Item Value Reference Range Interpretation Comments Reference Lab Testing 128.5 Units 0.0-20.0 H (test code = MARLON) Negative 0.0 - 20.0 Equivocal 20.1 - 24.9 Positive >24.9Mitochondr ial (M2) Antibodies are found in 90-96% ofpatients with primary biliary cirrhosis.Perfo rmed at: [facility] rp [address] [place], [place] [id number] Director: Pj Rider MD, [facility] ne: [phone] Reference Lab [id number] 16:14:00 Test Item Value Reference Range Interpretation [...] testing of p ositive sera with both TX-3 and MPO-ANCA enzyme immunoassays. A s many as 5% serumsamples are positive only b y EIA. Ref. AM J Clin Dklaut6238;111: 507-513. Reference Lab <1:20 titer Neg:<1:20 The atypical p ANCA pattern Testing (test has been obser chelita in code = ATANCA) asignificant percentage of patients with u lcerative colitis,primary sclerosing cholangitis and autoimmune hepatitis.Perfo rmed at: [facility] [address] [place], [place] [id number] Di aimee: Chester ramírez MD, Phone: [phone] [id number] 05:12:00 Test Item Value Reference Range Interpretation [...] 8-55 H code = ALT) Reference Lab [id number] 22:07:00 Test Item Value Reference Range Interpretation Comments Reference Lab Testing 785 IU/L 39-117 H (test code = ISOALKT) Reference Lab Testing 25 % 14-68 (test code = ISOALKBT) Reference Lab Testing 74 % 18-85 (test code = ISOALKLT) Reference Lab Testing 1 % 0-18 Perfor med at: HD - (test code = ISOALKIT) [facility] [place] [address] [place], [place] [id number] b Director: Chico Suero MD, Phone: [phone] [facility] at: [facility] [id number] Di aimee: Chester ramírez MD, Phone: [phone] [id number] 11:48:00 Test Item Value Reference Range Interpretation [...] code = ALT) 92 U/L 8-55 H [id number] 06:08:00 Test Item Value Reference Range Interpretation [...] 8.5 mg/dL 7.8-10.44 N code = CA) [id number] 06:06:00 Test Item Value Reference Range Interpretation [...] code = ALT) 129 U/L 8-55 H [id number] 05:57:00 Test Item Value Reference Range Interpretation [...] code = BASO#) 0.0 thou/uL 0.0-0.2 N [id number] 05:55:00 Test Item Value Reference Range Interpretation [...] - 4. 0 CRITICAL: > 4.0 Anticoagulant? [id number] 05:36:00 Test Item Value Reference Range Interpretation [...] 8.9 mg/dL 7.8-10.44 N code = CA) [id number] 05:33:00 Test Item Value Reference Range Interpretation [...] code = ALT) 160 U/L 8-55 H [id number] 05:28:00 Test Item Value Reference Range Interpretation [...] 0.1 thou/uL 0.0-0.2 N Chemistry - Elizabeth [id number] 13:02:00 Test Item Value Reference Range Interpretation [...] hod: Enzyme Linked Fluorescent Immunoassay (Elizabeth)Reference s: [employer] Elizabeth Package [employer] - Directions forU , June,August 02, [employer] ic. [id number] 05:00:00 Test Item Value Reference Range Interpretation [...] code = ALT) 144 U/L 8-55 H [id number] 04:50:00 Test Item Value Reference Range Interpretation [...] 8.4 mg/dL 7.8-10.44 N code = CA) Suooqltgyu6204-01-02 04:39:00 Test Item Value Reference Range Interpretation [...] code = BASO#) 0.0 thou/uL 0.0-0.2 N [id number] 17:07:00 Test Item Value Reference Range Interpretation Comments Chemistry (test code = IGG) 1032.00 mg/dL 552-1631 N [id number] 17:07:00 Test Item Value Reference Range Interpretation Comments Chemistry (test code = IGM) 215.00 mg/dL 33-293 N [id number] 00:50:00 Test Item Value Reference Range Interpretation [...] UABLD) Urine Source: Urine Clean [employer] - [id number] 00:25:00 Test Item Value Reference Range Interpretation Comments Chemistry - Specials (test Non-Reactive NonReactive code = THEPAIGM) Chemistry - Specials (test Non-Reactive S/CO NonReactive code = THBSAG) Chemistry - Specials (test Non-Reactive NonReactive code = INTHBCM) Chemistry - Specials (test Non-Reactive NonReactive code = INTHEPC) [id number] 22:12:00 Test Item Value Reference Range Interpretation [...] code 196 U/L 8-55 H = ALT) [id number] 22:12:00 Test Item Value Reference Range Interpretation Comments Chemistry (test code = LIP) 22 U/L 8-78 N [id number] 21:50:00 Test Item Value Reference Range Interpretation [...] code = BASO#) 0.1 thou/uL 0.0-0.2 N [id number] 22:49:00 Test Item Value Reference Range Interpretation [...] 78 U/L 8-55 H code = ALT) [id number] 22:49:00 Test Item Value Reference Range Interpretation Comments Chemistry (test code = LIP) 12 U/L 8-78 N [id number] 22:24:00 Test Item Value Reference Range Interpretation [...] code = BASO#) 0.0 thou/uL 0.0-0.2 N [id number] 22:00:00 Test Item Value Reference Range Interpretation [...] UABLD) Negative Negative Urine Source: Urine Clean [id number] 09:28:00 Test Item Value Reference Range Interpretation Comments Accuchek (test code = ACU) 99 mg/dL 70-110 N [id number] 09:14:00 Test Item Value Reference Range Interpretation [...] UABLD) Negative Negative Urine Source: Urine Clean [id number] 21:28:00 Test Item Value Reference Range Interpretation [...] UABLD) Negative Negative Urine Source: Urine Clean [id number] 21:09:00 Test Item Value Reference Range Interpretation [...] 95 U/L 8-55 H code = ALT) [id number] 21:09:00 Test Item Value Reference Range Interpretation Comments Chemistry (test code = LIP) 39 U/L 8-78 N [id number] 20:49:00 Test Item Value Reference Range Interpretation [...] code = BASO#) 0.0 thou/uL 0.0-0.2 N [id number] 21:34:00 Test Item Value Reference Range Interpretation [...] Presu mptive positive [facility]. Urine Source: Urine Clean [id number] 19:17:00 Test Item Value Reference Range Interpretation [...] = UABLD) Negative Negative Urine Source: Urine [id number] 18:48:00 Test Item Value Reference Range Interpretation [...] code 84 U/L 8-55 H = ALT) [id number] 18:48:00 Test Item Value Reference Range Interpretation Comments Chemistry (test code = JORGE) 53.0 U/L 25-125 N [id number] 18:48:00 Test Item Value Reference Range Interpretation Comments Chemistry (test code = LIP) 10 U/L 8-78 N [id number] 18:19:00 Test Item Value Reference Range Interpretation [...] = BASO#) 0.1 thou/uL 0.0-0.2 N Culture, [id number] 10:22:00 Test Item Value Reference Range Interpretation Comments Culture, Urine (test code = URC) NF N Culture, Urine (test code = URC1) 10 MSF N [id number] 17:38:00 Test Item Value Reference Range Interpretation Comments Chemistry (test code = PHOS) 2.9 mg/dL 2.3-4.7 N [id number] 17:04:00 Test Item Value Reference Range Interpretation [...] H = ALT) Chemistry - BNP, HgbA1c, [id number] 17:04:00 Test Item Value Reference Range Interpretation Comments Chemistry - BNP, 4.9 % 4.0-6.0 N Therapeutic goals for glycemic HgbA1c, PTHi (test control ( ADA)Adults:- Goal of code = BZPK1HF) therapy: Les s than 7.0% HbA1c- Action suggeste d: Greater than 8.0% ImB6mXlpce tric patients:- Toddlers and pr eschoolers: Less than 8.5% (but Greater than 7.5%)- Katelynn ool age (6-12 years): Less th an 8%- Adolescents and young adults (13-19 years): Less than 7.5%Diagnosing diabetes (ADA)- HbA1c: Greater than or equal to 6.5% Values of 5.7 - 6.4% indicate HIGH risk for developing DiabetesInterna tional Expert Committee Repor t on the Role of the N3AYycwf in the Diagnosis of Di abetes. Diabetes Care 2009July;32(7): 1327-1334ADA, Diagnosis cla ssification of diabetes [facility].Diabetes Care 2010; 33 S uppl 1:S62 [id number] 16:59:00 Test Item Value Reference Range Interpretation Comments Chemistry (test code = CRP) 1.16 mg/dL = or < 0.5 H What test does the doctor want? C-REACTIVE PROTEIN (CRP)[id number] 16:53:00 Test Item Value Reference Range Interpretation [...] HPF None Seen Urine Source: Urine Clean [id number] 16:46:00 Test Item Value Reference Range Interpretation [...] code = BASO#) 0.1 thou/uL 0.0-0.2 N [id number] 21:59:00 Test Item Value Reference Range Interpretation [...] Urine Clean CatchSepsis - Lactic Acid >2 [id number] 23:59:00 Test Item Value Reference Range Interpretation Comments Sepsis - Lactic Additional Lactate testin g will be Acid >2 Rflx performed in 3 hrs (test code = according to alfred cox VETFG7M) SepsisProtocol. [id number] 21:12:00 Test Item Value Reference Range Interpretation Comments Chemistry (test code = JORGE) 59.0 U/L 25-125 N [id number] 20:59:00 Test Item Value Reference Range Interpretation [...] 87 U/L 8-55 H code = ALT) [id number] 20:59:00 Test Item Value Reference Range Interpretation Comments Chemistry (test code = LIP) 32 U/L 8-78 N Chemistry - [id number] 20:59:00 Test Item Value Reference Range Interpretation Comments Chemistry - Lactate (test code = 2.1 mmol/L 0.5-2.2 N LACTSEP-T) [id number] 20:43:00 Test Item Value Reference Range Interpretation Comments Urinalysis (test code = UACLR) YELLOW Yellow Urinalysis (test code = UACLY) CLEAR Clear Urinalysis (test code = SPGR) 1.008 1.002-1.036 N Urinalysis (test code = ECLSO) 6.5 5.0-9.0 N Urinalysis (test code = [...] = UABLD) Negative Negative Urine Source: Urine [id number] 20:37:00 Test Item Value Reference Range Interpretation [...]
[2019-12-17] MEDS ORDERED: ONDANSETRON 4 MG/2 ML VIAL ONE ×2 (05:31→06:27)
[2019-12-17] MEDS ORDERED: NA CHLORIDE 0.9% 500 ML ONE (05:31)
[2019-12-17] MEDS ORDERED: NA CHLORIDE 0.9% 1,000 ML ONE (05:31)
[2019-12-17] MEDS ORDERED: FENTANYL CITR 100 MCG/2 ML ONE (05:31)
[2019-12-17 05:34] LABS: Basophils % 0.4 % (0-1.3); Lymphocytes % 22.7 % (15.3-44.8); MPV 8.2 fL (7.6-11.3); RBC Red Blood Cell Count 3.16 M/uL (3.86-4.86)
[2019-12-17 05:59] LABS: ALT/SGPT 190 U/L (12-78); AST/SGOT 214 U/L (15-37); Albumin 2.8 g/dL (3.4-5.0); Alkaline Phosphatase 606 U/L (45-117); BUN Blood Urea Nitrogen 18 mg/dL (7-18); Bicarbonate 27 mmol/L (21-32); Bilirubin Direct 0.6 mg/dL (0-0.2); Bilirubin Total 0.8 mg/dL (0.2-1.0); Glucose Level 104 mg/dL (74-106); Lipase 229 U/L (73-393); Magnesium 2.9 mg/dL (1.8-2.4); NT PRO-BNP 34 pg/mL (<125); Potassium 4.5 mmol/L (3.5-5.1); Protein, Total 7.5 g/dL (6.4-8.2); Sodium Level 139 mmol/L (136-145); Troponin (Emerg Dept Use Only) < 0.02 ng/mL (0.0-0.045)
[2019-12-17] MEDS ORDERED: MORPHINE 4 MG/ML SYR ONE (06:27)
--- NOTE | 2019-12-17 07:03 | ER ---
Nurse's Notes [facility] Name: Yessenia Aleman Age: 59 yrs Sex: Female : 1960 Arrival Date: 12/17/2019 Time: 04:40 Bed 5 Private MD: Diagnosis: Vomiting;Abdominal tenderness;Biliary cirrhosis, unspecified;Constipation Presentation: 12/16 04:45 Chief complaint: Patient states: I was seen here a couple days ago for my back pain and sg having shaking, was given some injections by for this pain and then it just go so much worse. Well this morning Im vomiting and still having the pain in the back as well as pain under my right breast. Coronavirus screen: Client denies travel out of the [place] in the last 14 days. vomiting. Ebola Screen: Patient negative for fever greater than or equal to 101.5 degrees Fahrenheit, and additional compatible Ebola Virus Disease symptoms Patient denies exposure to infectious person. Patient denies travel to an Ebola-affected area in the 21 days before illness onset. No symptoms or risks identified at this time. Initial Sepsis Screen: Does the patient meet any 2 criteria? No. Patient's initial sepsis screen is negative. Does the patient have a suspected source of infection? No. Patient's initial sepsis screen is negative. Risk Assessment: Do you want to hurt yourself or someone else? Patient reports no desire to harm self or others. Onset of symptoms was December 17, 2019. Care prior to arrival: None. Transition of care: patient was not received from another setting of care. 04:45 Acuity: HOLLI 3 sg 04:45 Method Of Arrival: Wheelchair Triage Assessment: 04:57 General: Appears uncomfortable, Behavior is cooperative. Pain: Complains of pain in mt2 diaphragm Pain currently is 10 out of 10 on a pain scale. EENT: No deficits noted. Neuro: No deficits noted. Cardiovascular: No deficits noted. Respiratory: No deficits noted. GI: Reports upper abdominal pain, nausea, vomiting. : No deficits noted. Derm: No deficits noted. Musculoskeletal: Reports pain in mid back area. Historical: - Allergies: 04:44 Codeine; sg - Home Meds: 04:59 gabapentin 300 mg Oral cap 1 cap daily for Neuropathic Pain [Active]; losartan 100 mg mt2 Oral tab 1 tab once daily for Hypertension [Active]; [place] 10-325 mg Oral tab 1 tab twice a day for Pain [Active]; - PMHx: 04:44 Anxiety; Arthritis; biliary chirrosis; biliary disease; CHF; Chronic Pancreatitis; sg Hypertension; Pancreatitis; Pneumonia; - PSHx: 04:44 Cholecystectomy; Appendectomy; sg - Immunization history:: Adult Immunizations up to date. - Social history:: Smoking status: Patient denies any tobacco usage or history of. Screenin:56 Abuse screen: Denies threats or abuse. Nutritional screening: No deficits noted. mt2 Tuberculosis screening: No symptoms or risk factors identified. Fall Risk None identified. Assessment: 04:58 GI: Abdomen is round. mt2 06:12 Reassessment: Patient and/or family updated on plan of care and expected duration. Pain mt2 level reassessed. Patient is alert, oriented x 3, equal unlabored respirations, skin warm/dry/pink. General: Appears uncomfortable, Behavior is anxious. Pain: Complains of pain in xyphoid area and right breast Pain currently is 10 out of 10 on a pain scale. 07:13 Reassessment: Patient and/or family updated on plan of care and expected duration. Pain mt2 level reassessed. Patient is alert, oriented x 3, equal unlabored respirations, skin warm/dry/pink. General: Appears comfortable, Behavior is cooperative. Pain: Denies pain. Vital Signs: 04:55 BP 142 / 101; Pulse 86; Resp 19; Temp 98.3(O); Pulse Ox 96% ; Weight 72.57 kg; Height 5 mt2 ft. (152.40 cm); Pain 10/10; 05:35 BP 137 / 83; Pulse 77; Resp 16; Pulse Ox 96% on R/A; Pain 8/10; mt2 06:13 BP 139 / 91; Pulse 77; Resp 16; Pulse Ox 95% on R/A; Pain 10/10; mt2 07:14 BP 125 / 72; Pulse 74; Resp 16; Pulse Ox 97% on R/A; Pain 0/10; mt2 04:55 Body Mass Index 31.25 (72.57 kg, 152.40 cm) mt2 ED Course: 04:40 Patient arrived in ED. cl3 04:45 Arm band placed on. sg 04:46 Blanca Zavala RN is Primary Nurse. mt2 04:46 Triage completed. sg 04:48 Kyler Flores MD is Attending Physician. irene 04:57 Patient has correct armband on for positive identification. Placed in gown. Bed in low mt2 position. Call light in reach. Side rails up X 1. Pulse ox on. NIBP on. 05:10 Initial lab(s) drawn, by me, sent to lab. EKG done, by ED staff. Inserted saline lock: mt2 20 gauge in right forearm, using aseptic technique. Blood collected. 05:43 XRAY Chest (1 view) In Process Unspecified. EDMS 06:22 CT Aorta for Dissection In Process Unspecified. EDMS 07:01 Elijah Neumann MD is Referral Physician. irene 07:14 No provider procedures requiring assistance completed. IV discontinued, intact, mt2 bleeding controlled, No redness/swelling at site. Pressure dressing applied. Administered Medications: 05:25 Drug: fentaNYL (PF) 50 mcg Route: IVP; Site: right forearm; mt2 06:01 Follow up: Response: No adverse reaction; Pain is unchanged, physician notified mt2 05:25 Drug: Zofran (Ondansetron) 4 mg Route: IVP; Site: right forearm; mt2 06:01 Follow up: Response: No adverse reaction; Pain is unchanged, physician notified mt2 05:26 Drug: NS 0.9% 500 ml Route: IV; Rate: bolus; Site: right forearm; mt2 06:01 Follow up: Response: No adverse reaction; IV Status: Completed infusion mt2 05:26 Drug: NS 0.9% 1000 ml Route: IV; Rate: 125 ml/hr; Site: right forearm; mt2 07:13 Follow up: Response: No adverse reaction; IV Status: Completed infusion mt2 06:25 Drug: Zofran (Ondansetron) 4 mg Route: IVP; Site: right forearm; mt2 07:03 Follow up: Response: No adverse reaction; Nausea is decreased mt2 06:26 Drug: morphine 4 mg Route: IVP; Site: right forearm; mt2 07:04 Follow up: Response: No adverse reaction; Pain is decreased mt2 Outcome: 07:03 Discharge ordered by . irene 07:14 Discharged to home ambulatory. mt2 07:14 Condition: good 07:14 Discharge instructions given to patient, Instructed on discharge instructions, follow up and referral plans. medication usage, Demonstrated understanding of instructions, follow-up care, medications, Prescriptions given X 3. 07:15 Patient left the ED. mt2 Signatures: Dispatcher [employer] EDEagle Carey, RN RN Kyler Jackson MD MD cha Lewis, Charde cl3 Blanca Zavala RN RN mt2 Corrections: (The following items were deleted from the chart) 04:49 04:45 Chief complaint: Patient states: I was seen here a couple days ago for my back sg pain and having shaking, was given some injections by for this pain and then it just go so much worse. Well this morning Im vomiting and still having the back pain sg
--- NOTE | 2019-12-17 07:03 | EDPHYS ---
Physician Documentation [facility] Name: Yessenia Aleman Age: 59 yrs Sex: Female : 1960 Arrival Date: 12/17/2019 Time: 04:40 Bed 5 Private MD: MAGDALENE Physician Kyler Flores HPI: 12/16 04:58 This 59 yrs old Female presents to ER via Wheelchair with complaints of irene Vomiting, Back Pain. 04:58 The patient presents to the emergency department with nausea, vomiting. Onset: The irene symptoms/episode began/occurred 2 day(s) ago. Possible causes: unknown. The symptoms are aggravated by nothing. The symptoms are alleviated by nothing. Associated signs and symptoms: The patient has no apparent associated signs or symptoms. Severity of symptoms: At their worst the symptoms were mild moderate in the emergency department the symptoms are unchanged. The patient has experienced similar episodes in the past, a few times. Historical: - Allergies: 04:44 Codeine; sg - Home Meds: 04:59 gabapentin 300 mg Oral cap 1 cap daily for Neuropathic Pain [Active]; losartan 100 mg mt2 Oral tab 1 tab once daily for Hypertension [Active]; [place] 10-325 mg Oral tab 1 tab twice a day for Pain [Active]; - PMHx: 04:44 Anxiety; Arthritis; biliary chirrosis; biliary disease; CHF; Chronic Pancreatitis; sg Hypertension; Pancreatitis; Pneumonia; - PSHx: 04:44 Cholecystectomy; Appendectomy; sg - Immunization history:: Adult Immunizations up to date. - Social history:: Smoking status: Patient denies any tobacco usage or history of. ROS: 04:58 Constitutional: Negative for fever, chills, and weight loss, Eyes: Negative for injury, irene pain, redness, and discharge, ENT: Negative for injury, pain, and discharge, Neck: Negative for injury, pain, and swelling, Cardiovascular: Negative for chest pain, palpitations, and edema, Respiratory: Negative for shortness of breath, cough, wheezing, and pleuritic chest pain, Back: Negative for injury and pain, : Negative for injury, bleeding, discharge, and swelling, MS/Extremity: Negative for injury and deformity, Skin: Negative for injury, rash, and discoloration, Neuro: Negative for headache, weakness, numbness, tingling, and seizure, Psych: Negative for depression, anxiety, suicide ideation, homicidal ideation, and hallucinations, Allergy/Immunology: Negative for hives, rash, and allergies, Endocrine: Negative for neck swelling, polydipsia, polyuria, polyphagia, and marked weight changes, Hematologic/Lymphatic: Negative for swollen nodes, abnormal bleeding, and unusual bruising. 04:58 Abdomen/GI: Positive for abdominal pain, nausea and vomiting. Exam: 04:58 Constitutional: This is a well developed, well nourished patient who is awake, alert, irene and in no acute distress. Head/Face: Normocephalic, atraumatic. Eyes: Pupils equal round and reactive to light, extra-ocular motions intact. Lids and lashes normal. Conjunctiva and sclera are non-icteric and not injected. Cornea within normal limits. Periorbital areas with no swelling, redness, or edema. ENT: Nares patent. No nasal discharge, no septal abnormalities noted. Tympanic membranes are normal and external auditory canals are clear. Oropharynx with no redness, swelling, or masses, exudates, or evidence of obstruction, uvula midline. Mucous membranes moist. Neck: Trachea midline, no thyromegaly or masses palpated, and no cervical lymphadenopathy. Supple, full range of motion without nuchal rigidity, or vertebral point tenderness. No Meningismus. Chest/axilla: Normal chest wall appearance and motion. Nontender with no deformity. No lesions are appreciated. Cardiovascular: Regular rate and rhythm with a normal S1 and S2. No gallops, murmurs, or rubs. Normal PMI, no JVD. No pulse deficits. Respiratory: Lungs have equal breath sounds bilaterally, clear to auscultation and percussion. No rales, rhonchi or wheezes noted. No increased work of breathing, no retractions or nasal flaring. Back: No spinal tenderness. No costovertebral tenderness. Full range of motion. Female : Normal external genitalia. Skin: Warm, dry with normal turgor. Normal color with no rashes, no lesions, and no evidence of cellulitis. MS/ Extremity: Pulses equal, no cyanosis. Neurovascular intact. Full, normal range of motion. Neuro: Awake and alert, GCS 15, oriented to person, place, time, and situation. Cranial nerves II-XII grossly intact. Motor strength 5/5 in all extremities. Sensory grossly intact. Cerebellar exam normal. Normal gait. Psych: Awake, alert, with orientation to person, place and time. Behavior, mood, and affect are within normal limits. 04:58 Abdomen/GI: Inspection: abdomen appears normal, Bowel sounds: normal, Palpation: mild abdominal tenderness, in the right upper quadrant and right lower quadrant, Liver: no appreciated palpable abnormalities, Hernia: not appreciated. 04:58 Musculoskeletal/extremity: Extremities: grossly normal except: ROM: intact in all extremities, full active range of motion, full passive range of motion, Pulses: Sensation intact. Compartment Syndrome exam of affected extremity: is normal. Joints: All joints appear normal with full range of motion. DVT Exam: No signs of deep vein thrombosis. no pain, no swelling, no tenderness, negative Homans' sign noted on exam, no appreciated bluish discoloration, no erythema, no increased warmth, Calves: are non-tender, have equal circumference. 05:29 ECG was reviewed by the Attending Physician. [facility] Vital Signs: 04:55 BP 142 / 101; Pulse 86; Resp 19; Temp 98.3(O); Pulse Ox 96% ; Weight 72.57 kg; Height 5 mt2 ft. (152.40 cm); Pain 10/10; 05:35 BP 137 / 83; Pulse 77; Resp 16; Pulse Ox 96% on R/A; Pain 8/10; mt2 06:13 BP 139 / 91; Pulse 77; Resp 16; Pulse Ox 95% on R/A; Pain 10/10; mt2 07:14 BP 125 / 72; Pulse 74; Resp 16; Pulse Ox 97% on R/A; Pain 0/10; mt2 04:55 Body Mass Index 31.25 (72.57 kg, 152.40 cm) mt2 MDM: 04:48 Patient medically screened. [facility] 05:01 Data reviewed: vital signs, nurses notes, lab test result(s), EKG, radiologic studies, [facility] CT scan, plain films. 05:01 Differential diagnosis: Nonspecific abd pain, gastritis, cholecystitis, pancreatitis, irene appendicitis, diverticulitis, viral gastroenteritis. Data interpreted: ekg monitor tech: rate is 86 beats/min, Pulse oximetry: on room air is 96 %. Test interpretation: by ED physician or midlevel provider: ECG, plain radiologic studies. Counseling: I had a detailed discussion with the patient and/or guardian regarding: the historical points, exam findings, and any diagnostic results supporting the discharge/admit diagnosis, the presence of at least one elevated blood pressure reading (>120/80) during this emergency department visit, lab results, radiology results, the need for outpatient follow up, for definitive care, a pm head cook. Medical screen evaluation completed. [facility] emergency medical condition absent. Medication response: 06:58 Response to treatment: the patient's symptoms have markedly improved after treatment, irene patient is well hydrated. ED course: rest, discussed labs and ct findings, will follow up with dr cheung. 12/16 04:58 Order name: Basic Metabolic Panel; Complete Time: 06:22 [facility] 12/16 04:58 Order name: CBC with Diff; Complete Time: 06:22 [facility] 12/16 04:58 Order name: LFT's; Complete Time: 06:22 [facility] 12/16 04:58 Order name: Magnesium; Complete Time: 06:22 [facility] 12/16 04:58 Order name: NT PRO-BNP; Complete Time: 06:22 [facility] 12/16 04:58 Order name: Troponin (emerg Dept Use Only); Complete Time: 06:22 [facility] 12/16 04:58 Order name: XRAY Chest (1 view) [facility] 12/16 04:58 Order name: Lipase; Complete Time: 06:22 [facility] 12/16 04:58 Order name: CT Aorta for Dissection [facility] 12/16 07:00 Order name: CREATININE WHOLE BLOOD EDMO 12/16 04:58 Order name: EKG; Complete Time: 04:58 [facility] 12/16 04:58 Order name: Cardiac monitoring; Complete Time: 05:26 [facility] 12/16 04:58 Order name: EKG - Nurse/Tech; Complete Time: 05: [facility] 12/16 04:58 Order name: IV Saline Lock; Complete Time: 05: [facility] 12/16 04:58 Order name: Labs collected and sent; Complete Time: : [facility] 12/16 04:58 Order name: O2 Per Protocol; Complete Time: 05: [facility] 12/16 04:58 Order name: O2 Sat Monitoring; Complete Time: 05:26 [facility] EC:29 Rate is 67 beats/min. Rhythm is regular. QRS [place] is Normal. DC interval is normal. QRS irene interval is normal. QT interval is normal. No Q waves. T waves are Normal. No ST changes noted. Clinical impression: NSR w/ Non-specific ST/T Changes and No evidence of ischemia. Interpreted by me. Reviewed by me. Administered Medications: 05:25 Drug: fentaNYL (PF) 50 mcg Route: IVP; Site: right forearm; mt2 06:01 Follow up: Response: No adverse reaction; Pain is unchanged, physician notified mt2 05:25 Drug: Zofran (Ondansetron) 4 mg Route: IVP; Site: right forearm; mt2 06:01 Follow up: Response: No adverse reaction; Pain is unchanged, physician notified mt2 05:26 Drug: NS 0.9% 500 ml Route: IV; Rate: bolus; Site: right forearm; mt2 06:01 Follow up: Response: No adverse reaction; IV Status: Completed infusion mt2 05:26 Drug: NS 0.9% 1000 ml Route: IV; Rate: 125 ml/hr; Site: right forearm; mt2 07:13 Follow up: Response: No adverse reaction; IV Status: Completed infusion mt2 06:25 Drug: Zofran (Ondansetron) 4 mg Route: IVP; Site: right forearm; mt2 07:03 Follow up: Response: No adverse reaction; Nausea is decreased mt2 06:26 Drug: morphine 4 mg Route: IVP; Site: right forearm; mt2 07:04 Follow up: Response: No adverse reaction; Pain is decreased mt2 Disposition: 12/17/19 07:03 Discharged to Home. Impression: Vomiting, Abdominal tenderness, Biliary cirrhosis, unspecified, Constipation. - Condition is Stable. - Discharge Instructions: Abdominal Pain, Adult, Constipation, Adult, Nausea and Vomiting, Adult, Constipation, Adult, [id number], Nausea and Vomiting, Adult, [id number], Abdominal Pain, Adult, Vgaw-[id number]. - Prescriptions for Bentyl 20 mg Oral Tablet - take 1 tablet by ORAL route every 6 hours As needed; 20 tablet. Pepcid 20 mg Oral Tablet - take 1 tablet by ORAL route every 12 hours for 10 days; 20 tablet. Zofran 4 mg Oral Tablet - take 1 tablet by ORAL route every 12 hours As needed; 20 tablet. - Medication Reconciliation Form, Thank You Letter, Antibiotic Education, Prescription Opioid Use form. - Follow up: Private Physician; When: 2 - 3 days; Reason: Recheck today's complaints, Continuance of care, Re-evaluation by your physician. Follow up: Elijah Neumann MD; When: 2 - 3 days; Reason: Recheck today's complaints, Continuance of care, Re-evaluation by your physician. - Problem is new. - Symptoms have improved. Signatures: Dispatcher [employer] EDMS Eagle Celestin RN RN sg Anderson, Corey, MD MD cha Toscano, Marlene, RN RN mt2 Corrections: (The following items were deleted from the chart) 07:04 07:03 12/17/2019 07:03 Discharged to Home. Impression: Vomiting; Abdominal tenderness; irene Biliary cirrhosis, unspecified. Condition is Stable. Forms are Medication Reconciliation Form, Thank You Letter, Antibiotic Education, Prescription Opioid Use. Follow up: Private Physician; When: 2 - 3 days; Reason: Recheck today's complaints, Continuance of care, Re-evaluation by your physician. Follow up: Elijah Neumann; When: 2 - 3 days; Reason: Recheck today's complaints, Continuance of care, Re-evaluation by your physician. Problem is new. Symptoms have improved. irene 07:15 07:04 12/17/2019 07:03 Discharged to Home. Impression: Vomiting; Abdominal tenderness; mt2 Biliary cirrhosis, unspecified; Constipation. Condition is Stable. Discharge Instructions: Abdominal Pain, Adult, Nausea and Vomiting, Adult, Nausea and Vomiting, Adult, Bqow-[id number], Abdominal Pain, Adult, Yrmr-ri-[id number]. Prescriptions for Bentyl 20 mg Oral Tablet - take 1 tablet by ORAL route every 6 hours As needed; 20 tablet, Pepcid 20 mg Oral Tablet - take 1 tablet by ORAL route every 12 hours for 10 days; 20 tablet, Zofran 4 mg Oral Tablet - take 1 tablet by ORAL route every 12 hours As needed; 20 tablet. and Forms are Medication Reconciliation Form, Thank You Letter, Antibiotic Education, Prescription Opioid Use. Follow up: Private Physician; When: 2 - 3 days; Reason: Recheck today's complaints, Continuance of care, Re-evaluation by your physician. Follow up: Elijah Neumann; When: 2 - 3 days; Reason: Recheck today's complaints, Continuance of care, Re-evaluation by your physician. Problem is new. Symptoms have improved. irene
--- NOTE | 2019-12-17 08:55 | RAD REPORT ---
EXAM DESCRIPTION: RAD - Chest Single View - 12/17/2019 5:43 am CLINICAL HISTORY: Abdominal distention;Chest pain Chest pain. COMPARISON: Chest Single View dated 06/21/2019; Abdomen Acute Series dated 07/18/2016; Chest Pa And Lat (2 Views) dated 05/04/2016; Chest Pa And Lat (2 Views) dated 04/29/2016 FINDINGS: Portable technique limits examination quality. The lungs are grossly clear except for a small calcified granuloma in the right lung. The heart is no rmal in size. No displaced fractures. IMPRESSION: No acute intrathoracic process suspected.
--- NOTE | 2019-12-17 15:12 | RAD REPORT ---
EXAM DESCRIPTION: CT of the chest, abdomen, and pelvis with contrast CLINICAL HISTORY: Chest and abdominal pain. COMPARISON: None Available. TECHNIQUE: CTA of the chest, abdomen and pelvis performed following IV administration of iodinated c ontrast. 3-D/MIP reformatted images available. FINDINGS: Chest: Thyroid: No abnormalities of the visualized thyroid. Great Vessels: Great vessels have normal anatomic configuration. Thoracic Aorta: Normal caliber thoracic aorta without dissection. Pulmonary arteries: No central filling defects identified. Heart: No cardiomegaly, significant pericardial effusion, or coronary artery atherosclerosis Lymph Nodes: No enlarged mediastinal lymph nodes identified. Esophagus: No abnormalities of the esophagus identified Other: No additional findings. Lungs: No airspace opacities identified. Calcified right upper lobe granuloma. Pleura: No pleural effusion or pneumothorax. Trachea/Airways: No abnormalities of the visualized trachea or airways. Abdomen: Liver: The liver has normal size and density. No intrahepatic mass or biliary dilatation. Gallbladder: Prior cholecystectomy. Mild intrabiliary air is likely related to previous cholecystecto my. Spleen, Pancreas, and Adrenal Glands: The spleen, pancreas, and adrenal glands are unremarkable. Kidneys: The kidneys have normal size and contour without evidence of solid mass or hydronephrosis. Vasculature: Normal caliber abdominal aorta without evidence of aneurysm or dissection. Mild aortoili ac atherosclerosis. The celiac, superior mesenteric, and inferior mesenteric arteries are patent with out evidence of occlusion or high-grade stenosis. The renal arteries are patent bilaterally. Accessor y right renal artery. There is in-line flow from the abdominal aorta into the common iliac, external iliac, common femoral, and proximal superficial femoral arteries without evidence of occlusion or isacc w-limiting stenosis. The internal iliac and proximal profunda femoral arteries are patent. IVC is n ormal caliber. Stomach: The stomach and duodenum have normal course. Other: No free intraperitoneal air. No free fluid or lymphadenopathy. Small fat-containing abdomi nal hernia. Pelvis: Bladder: Urinary bladder is unremarkable. Bowel: No dilated loops of large or small bowel. Large amount of stool. Appendix: Normal appendix. Pelvis: Uterus is not enlarged. Bones: Mild degenerative change of the spine. IMPRESSION: 1. No evidence of aortic dissection or aneurysm. 2. No central pulmonary embolus identified. 3. Large amount of stool. This exam was performed according to our departmental dose-optimization program, which includes autom ated exposure control, adjustment of the mA and/or kV according to patient size and/or use of iterati ve reconstruction technique. Electronically signed by: Jose Luis Pena 12/17/2019 6:45 AM CDT Due to temporary technical issues with the PACS/Fluency reporting system, reports are being signed by the in house radiologist without review as a courtesy to ensure prompt reporting. The interpreting r adiologist is fully responsible for the content of the report.
--- NOTE | 2019-12-18 11:14 | EKG ---
Test Date: 2019-12-17 Test Time: 05:07:19 Software Security Consultant: CALLUM MEASUREMENT RESULTS: Intervals: Rate: 67 MI: 158 QRSD: 80 QT: 370 QTc: 390 [place]: P: 15 MI: 158 QRS: 68 T: 65 INTERPRETIVE STATEMENTS: Normal sinus rhythm Possible Anterior infarct, age undetermined Abnormal ECG Compared to ECG 06/21/2019 16:20:22 No significant changes Electronically Signed On 12-18-19 11:10:32 CDT by Evan Leblanc
[2019-12-19 04:28] VITALS: TEMP 98.3
[2019-12-19 04:31] VITALS: BP 125/72; O2SAT 97
== END 2019-12-17 07:15 | disposition home or self-care (01) ==
LOC: ER 04:39
DX: K74.5 Biliary cirrhosis, unspecified (principal); K59.00 Constipation, unspecified; R10.819 Abdominal tenderness, unspecified site; I10 Essential (primary) hypertension; I50.9 Heart failure, unspecified; F41.9 Anxiety disorder, unspecified; Z88.5 Allergy status to narcotic agent
CPT/HCPCS: 96361; 93005; 85025; 80048; 36415; 83735; 82565; 80076; 84484; 83690; 83880; 71275; 74175; 71045; 96375; 96374; 99284; Q9967; J3010; J7040; J7030; J2405 ×2

== ENCOUNTER 2019-12-20 23:22 | Emergency (ER) | payer OTHER ==
--- OUTSIDE RECORDS SUMMARY | 2019-12-20 23:27 | XMS REPORT | Continuity of Care Document ---
:1960 Author Organization [facility] t Address [address] [place] [address] Care Team Providers Name Role Phone Kaiden Hassan NP Attending Clinician Maxine Grayson MD Attending Clinician Asaf PERRIN Attending Clinician Won Fisher MD Attending Clinician Doctor Unassigned, Name Attending Clinician Unavailable Singer CANALES Attending Clinician Obdulia Vasquez MD Attending Clinician DANIEL Mai Attending Clinician Unavailable Haley Cox Attending Clinician Unavailable PROVIDEROWEN Attending Clinician Unavailable RADU Attending Clinician Unavailable [...] [facility] Osteoarthr Osteoarthr Problem Active [facility] itis itis [facility] - involving involving Germain shawn multiple multiple l joints on joints on Outp ati both sides both sides en t of body of body Clinics 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[facility] severe severe [facility] - depression depression Me moria l [facility] Chronic Chronic Diagnosis Active [facility] pancreatit pancreatit Shari kes - is, is, Memoria unspecifie unspecifie l d d [facility] pancreatit pancreatit en t is type is type Clinics Primary Primary Problem Active [facility] Iron Iron Problem Active [facility] deficiency deficiency Shari kes - anemia, anemia, Memoria unspecifie unspecifie l d iron d iron [facility] deficiency deficiency en t anemia anemia Clinics type type Seasonal Seasonal Diagnosis Active [facility] allergies allergies [facility] Nonadheren Nonadheren Diagnosis Active [facility] ce to ce to [facility] - medication medication [facility] Elevated Elevated Diagnosis Active [facility] liver liver [facility] - enzymes enzymes [facility] Tremor Tremor Diagnosis Active [facility] Canker Canker Diagnosis Active [facility] sores oral sores oral Shari kes - [facility] Allergies, Adverse Reactions, Alerts This patient has no known allergies or adverse reactions. Medications Ordered Filled Start Stop Current Ordering Indication Dosage Frequency Signature Comments Components Source Medication Medication Date Date Medication? Clinician (SIG) Name Name Chlorhexidi Chlorhexidi 2020-0 2020- Yes Na Slade [address] [address] ne ne 6 06-30 swish and [facility] - Gluconate Gluconate 00:00: 00:00 spit Me moria 00 :00 [facility] Losartan Losartan Yes Na Slade [address] [address] Potassium Potassium [facility] Lexapro Lexapro Yes Na Slade [address] kes - [facility] Seroquel XR Seroquel XR Yes Na Slade [address] [address] in the [facility] - evening [facility] Phenergan Phenergan Yes Na Slade one tablet [facility] Out[facility] ent Clinics Doxycycline Doxycycline Yes Na Slade 1 capsule [...] [facility] - M[facility]TH [facility] EVERY DAY l [facility] Procedures This patient has no known procedures. Encounters Start End Encounter Admission Attending Care Care Encounter Source Date/Time Date/Time Type Type Clinicians Facility Department ID 2019-12-18 2019-12-18 [id number] 15:26:00 19:16:00 Meka Guidry [id number] [place] 4.2.7.2.686 [place] [id number] 2019-10-06 2019-10-06 [facility] [id number] [address] 10:40:00 10:40:00 [facility] 2019-09-17 2019-09-17 [facility] [id number] 10:24:00 10:24:00 [facility] Medicine Medicine Outpati ent Clinics 2019-08-21 2019-08-21 Emergency [place] [id number] 19:42:19 23:51:00 Gabriele Guidry [id number] [place] 4.2.7.2.686 [place] [address] [id number] 2019-07-14 2019-07-14 [facility] [id number] 15:00:00 15:00:[address] [employer] [facility] 2019-06-25 2019-06-25 Emergency Asaf, [facility] [id number] 16:52:11 20:04:00 Grisel Guidry 350.1.13.10 [place] 4.2.7.2.686 [place] [id number] 2019-06-19 2019-06-19 [facility] [id number] 13:58:11 19:09:00 Skyler Guidry 350.1.13.10 [place] 4.2.7.2.686 [place] [id number] 2019-06-19 2019-06-19 Orders Doctor HAMMER [id number] 00:00:00 00:00:00 Only Unassigned, KATHIE [address].1.13.[address] [place] [facility] 4.2.7.2.686 [id number] 2019-05-19 2019-05-19 [facility] [id number] 18:29:04 21:26:00 Gary Guidry 350.1.13.10 [place] 4.2.7.2.686 [place] [id number] 2019-03-02 2019-03-02 [facility] [id number] 10:40:00 10:40:[address] [employer] [facility] 2019-02-04 2019-02-04 [facility] [id number] 10:55:00 10:55:[address] [employer] [facility] 2018-12-24 2018-12-24 Telephone [facility] [id number] 00:00:00 00:00:[address] [facility] [id number] Surgical 4.2.7.2.686 [facility] [id number] hazel Steiner Chao 2018-10-07 2018-10-07 [facility] [id number] 11:00:00 11:00:00 t Cary Kaltura Sayre s [facility] 2018-07-28 2018-07-28 [facility] [id number] 09:57:00 09:57:00 t Cary Kaltura Sayre s [facility] 2018-07-25 2018-07-25 [facility] [id number] [facility] St 14:40:00 14:40:00 t [facility] [employer] Sayre s [facility] Results Test Description Test Time Test Comments Results Result Comments Source Culture, Urine 2017-08-07 15:57:00 Test Item Value Reference Range Interpretation Comme nts Culture, Urine (test code = URC) NF Culture, Urine (test code = URC1) 10 NSF * This is a n EDITED result. * A prior result th at was reported as final has been change d. [id number] 22:53:00 Test Item Value Reference Range Interpretation [...] = UACAST) CAST LPF Urine Source: Urine [id number] SURGICAL PATHOLOGY, LEVEL [id number] 14:31:[address] [address] Laboratory Printed: 07/09/[address] [place] [address] DAEMPathology Page: 1 Patient: ZEKE ROMERO Birthdate: 1960 Age/Sex: 56/F Spec#: [id number]: HERMES SALAZAR Specimen Date: 07/08/17 [...] cells, and few neutrophils. Pathologist:Kelvin Conway Entered by:07/09/171429 DEMOND PROCEDURES: 98359,32236/4 Patient: ZEKE ROMERO Re07/03/17Loc: T4-A MR#: [id number] CONTINUED ON NEXT PAGE Dis: 07/09/17ta: DIS IN - [address] [address] Laboratory Printed: 07/09/17 [facility] DAEMPathology Page: 2 Patient: ZEKE ROMERO [id number] (Continued) GROSS DESCRIPTION A. LIVER BIOPSY LEFT [...] by: DANII SHAHID Entered by:07/08/17 - 1316 LAB.YGP MICROSCOPIC DESCRIPTION A microscopic examination was performed to arrive at the diagnostic conclusion reported. Signed ___ ____(Electronically Signed) Kelvin 07/09/17 Patient: ZEKE ROMERO Re07/03/17Loc: T4-A MR#: [id number] END OF REPORT Dis: 07/09/17ta: DIS [id number] 05:13:00 Test Item Value Reference Range Interpretation [...] U/L 8-55 H = ALT) Reference Lab [id number] 04:14:00 Test Item Value Reference Range Interpretation Comments Reference Lab 10 U/mL 0-35 Laurent ECLIA Testing (test code methodolo gyPerformed at: HD = CA199) - [facility] Alesia zy5536 [facility] HospitalBill, [place] [id number] Di aimee: Chico Suero MD, Phone : [phone] Reference Lab [id number] 16:14:00 Test Item Value Reference Range Interpretation Comments Reference Lab Testing 128.5 Units 0.0-20.0 H (test code = MARLON) Negative 0.0 - 20.0 Equivocal 20.1 - 24.9 Positive >24.9Mitochondr ial (M2) Antibodies are found in 90-96% ofpatients with primary biliary cirrhosis.Perfo rmed at: [facility] - [facility] rp [address] [id number] Director: Pj Rider MD, [facility] ne: [phone] Reference Lab [id number] 16:14:00 Test Item Value Reference Range Interpretation [...] testing of p ositive sera with both LA-3 and MPO-ANCA enzyme immunoassays. A s many as 5% serumsamples are positive only b y EIA. Ref. AM J Clin Ffdosp4456;111: 507-513. Reference Lab <1:20 titer Neg:<1:20 The atypical p ANCA pattern Testing (test has been obser chelita in code = ATANCA) asignificant percentage of patients with u lcerative colitis,primary sclerosing cholangitis and autoimmune hepatitis.Perfo rmed at: [facility] - [facility] [address] [id number] Di aimee: Chester ramírez MD, Phone: [phone] Ibrfbkjiy9763-13-88 05:12:00 Test Item Value Reference Range Interpretation [...] 8-55 H code = ALT) Reference Lab [id number] 22:07:00 Test Item Value Reference Range Interpretation Comments Reference Lab Testing 785 IU/L 39-117 H (test code = ISOALKT) Reference Lab Testing 25 % 14-68 (test code = ISOALKBT) Reference Lab Testing 74 % 18-85 (test code = ISOALKLT) Reference Lab Testing 1 % 0-18 Perfor med at: HD - (test code = ISOALKIT) [facility] [address] [place], [place] [id number] b Director: Chico Suero MD, Phone: [phone] [facility] at: BN LabCoDonald V[place] [address] [place], [place] [id number] Di aimee: Chester ramírez MD, Phone: [phone] Ktsgygkkp1928-99-53 11:48:00 Test Item Value Reference Range Interpretation [...] code = ALT) 92 U/L 8-55 H [id number] 06:08:00 Test Item Value Reference Range Interpretation [...] 8.5 mg/dL 7.8-10.44 N code = CA) Qrbelsqpf7799-73-84 06:06:00 Test Item Value Reference Range Interpretation [...] code = ALT) 129 U/L 8-55 H Hhkimtrvkr1912-71-56 05:57:00 Test Item Value Reference Range Interpretation [...] code = BASO#) 0.0 thou/uL 0.0-0.2 N Pfdsuigwnjc4524-84-53 05:55:00 Test Item Value Reference Range Interpretation [...] - 4. 0 CRITICAL: > 4.0 Anticoagulant? MLHOBiowmcwxj2344-75-81 05:36:00 Test Item Value Reference Range Interpretation [...] 8.9 mg/dL 7.8-10.44 N code = CA) Dsfsdlzcq2422-36-08 05:33:00 Test Item Value Reference Range Interpretation [...] code = ALT) 160 U/L 8-55 H Mcfabayqar9318-26-07 05:28:00 Test Item Value Reference Range Interpretation [...] 0.1 thou/uL 0.0-0.2 N Chemistry - Elizabeth [id number] 13:02:00 Test Item Value Reference Range Interpretation Comments Chemistry - Elizabeth Negative Negative Testing (test code = ANASC) Chemistry - Elizabeth Negative Negative SYMPHONY SC REEN Testing (test code INCLUDES: ARTUR, = ANASYM) SS-A/Ro, SS-B/L a, U1RNP,RNP70, SCL-70, [...] hod: Enzyme Linked Fluorescent Immunoassay (Elizabeth)Reference s: [employer] Elizabeth Package Inserts - Directions Vasile maria, June,August 02, [employer] ic. Rdtmymrko4524-35-46 05:00:00 Test Item Value Reference Range Interpretation [...] code = ALT) 144 U/L 8-55 H Ychfepklb0367-34-71 04:50:00 Test Item Value Reference Range Interpretation [...] 8.4 mg/dL 7.8-10.44 N code = CA) Njqvxvfnhe3152-60-79 04:39:00 Test Item Value Reference Range Interpretation [...] code = BASO#) 0.0 thou/uL 0.0-0.2 N Vrsluethr7433-35-95 17:07:00 Test Item Value Reference Range Interpretation Comments Chemistry (test code = IGG) 1032.00 mg/dL 552-1631 N Kfeeutcdc6592-49-12 17:07:00 Test Item Value Reference Range Interpretation Comments Chemistry (test code = IGM) 215.00 mg/dL 33-293 N Fiubxlujta5297-66-57 00:50:00 Test Item Value Reference Range Interpretation [...] UABLD) Urine Source: Urine Clean [employer] - Iuxekhhc3232-93-30 00:25:00 Test Item Value Reference Range Interpretation Comments Chemistry - Specials (test Non-Reactive NonReactive code = THEPAIGM) Chemistry - Specials (test Non-Reactive S/CO NonReactive code = THBSAG) Chemistry - Specials (test Non-Reactive NonReactive code = INTHBCM) Chemistry - Specials (test Non-Reactive NonReactive code = INTHEPC) [id number] 22:12:00 Test Item Value Reference Range Interpretation [...] code 196 U/L 8-55 H = ALT) [id number] 22:12:00 Test Item Value Reference Range Interpretation Comments Chemistry (test code = LIP) 22 U/L 8-78 N Qoiucrabdo6910-49-00 21:50:00 Test Item Value Reference Range Interpretation [...] code = BASO#) 0.1 thou/uL 0.0-0.2 N Zgsvukkbg8209-32-36 22:49:00 Test Item Value Reference Range Interpretation [...] 78 U/L 8-55 H code = ALT) Jfayoehyh2063-87-15 22:49:00 Test Item Value Reference Range Interpretation Comments Chemistry (test code = LIP) 12 U/L 8-78 N Nfgbwhdwuj9058-56-45 22:24:00 Test Item Value Reference Range Interpretation [...] code = BASO#) 0.0 thou/uL 0.0-0.2 N Wcuzcvgobz1293-16-44 22:00:00 Test Item Value Reference Range Interpretation [...] UABLD) Negative Negative Urine Source: Urine Clean VvfwdExidvdlf1653-81-96 09:28:00 Test Item Value Reference Range Interpretation Comments Accuchek (test code = ACU) 99 mg/dL 70-110 N Qjstqqiokx2493-62-87 09:14:00 Test Item Value Reference Range Interpretation [...] UABLD) Negative Negative Urine Source: Urine Clean HtzquMujjcedwen5335-12-77 21:28:00 Test Item Value Reference Range Interpretation [...] UABLD) Negative Negative Urine Source: Urine Clean VdecfWfrbinhxf2359-58-73 21:09:00 Test Item Value Reference Range Interpretation [...] 95 U/L 8-55 H code = ALT) Vcgnyqnjl8377-57-72 21:09:00 Test Item Value Reference Range Interpretation Comments Chemistry (test code = LIP) 39 U/L 8-78 N Zijoztwmyk9330-84-89 20:49:00 Test Item Value Reference Range Interpretation [...] code = BASO#) 0.0 thou/uL 0.0-0.2 N Pcodticmgi0777-11-45 21:34:00 Test Item Value Reference Range Interpretation [...] desired. Presu mptive positive urines are held [facility] [place]. Urine Source: Urine Clean ZjrwxQlexzkcmdx3045-07-05 19:17:00 Test Item Value Reference Range Interpretation [...] = UABLD) Negative Negative Urine Source: Urine UhcjniEzcdjqwfl0122-85-30 18:48:00 Test Item Value Reference Range Interpretation [...] code 84 U/L 8-55 H = ALT) Vqtkodkah5345-31-25 18:48:00 Test Item Value Reference Range Interpretation Comments Chemistry (test code = JORGE) 53.0 U/L 25-125 N Iszjruwhh3540-52-20 18:48:00 Test Item Value Reference Range Interpretation Comments Chemistry (test code = LIP) 10 U/L 8-78 N Rpnggwlyeq3629-14-79 18:19:00 Test Item Value Reference Range Interpretation [...] = BASO#) 0.1 thou/uL 0.0-0.2 N Culture, [id number] 10:22:00 Test Item Value Reference Range Interpretation Comments Culture, Urine (test code = URC) NF N Culture, Urine (test code = URC1) 10 MSF N Noetcdmcu0040-06-80 17:38:00 Test Item Value Reference Range Interpretation Comments Chemistry (test code = PHOS) 2.9 mg/dL 2.3-4.7 N [id number] 17:04:00 Test Item Value Reference Range Interpretation [...] H = ALT) Chemistry - BNP, HgbA1c, [id number] 17:04:00 Test Item Value Reference Range Interpretation Comments Chemistry - BNP, 4.9 % 4.0-6.0 N Therapeutic goals for glycemic HgbA1c, PTHi (test control ( ADA)Adults:- Goal of code = MVEC2XK) therapy: Les s than 7.0% HbA1c- Action suggeste d: Greater than 8.0% OmM1aXanni tric patients:- Toddlers and pr eschoolers: Less than 8.5% (but Greater than 7.5%)- Katelynn ool age (6-12 years): Less th an 8%- Adolescents and young adults (13-19 years): Less than 7.5%Diagnosing diabetes (ADA)- HbA1c: Greater than or equal to 6.5% Values of 5.7 - 6.4% indicate HIGH risk for developing DiabetesInterna [facility] Expert Committee Repor t on the Role of the G2LOnynt in the Diagnosis of Di abetes. Diabetes Care 2009July;32(7): 1327-1334ADA, Diagnosis cla ssification of diabetes [facility].Diabetes Care 2010; 33 S uppl 1:S62 Wbtbvssuv2032-80-75 16:59:00 Test Item Value Reference Range Interpretation Comments Chemistry (test code = CRP) 1.16 mg/dL = or < 0.5 H What test does the doctor want? C-REACTIVE PROTEIN (CRP)Mqzylyofky1381-68-54 16:53:00 Test Item Value Reference Range Interpretation [...] HPF None Seen Urine Source: Urine Clean [id number] 16:46:00 Test Item Value Reference Range Interpretation [...] code = BASO#) 0.1 thou/uL 0.0-0.2 N Ldeuhuxhse9028-70-27 21:59:00 Test Item Value Reference Range Interpretation [...] Urine Clean CatchSepsis - Lactic Acid >2 Htdq1215-19-29 23:59:00 Test Item Value Reference Range Interpretation Comments Sepsis - Lactic Additional Lactate testin g will be Acid >2 Rflx performed in 3 hrs (test code = according to [facility] DHGZG2O) SepsisProtocol. [id number] 21:12:00 Test Item Value Reference Range Interpretation Comments Chemistry (test code = JORGE) 59.0 U/L 25-125 N Zfilhbrgl1654-04-52 20:59:00 Test Item Value Reference Range Interpretation [...] 87 U/L 8-55 H code = ALT) Cfxvmcpse1966-23-48 20:59:00 Test Item Value Reference Range Interpretation Comments Chemistry (test code = LIP) 32 U/L 8-78 N Chemistry - Xvpjngk4909-12-11 20:59:00 Test Item Value Reference Range Interpretation Comments Chemistry - Lactate (test code = 2.1 mmol/L 0.5-2.2 N LACTSEP-T) [id number] 20:43:00 Test Item Value Reference Range Interpretation [...] = UABLD) Negative Negative Urine Source: Urine CmrfroFzxtsstpbh5012-45-37 20:37:00 Test Item Value Reference Range Interpretation [...]
--- OUTSIDE RECORDS SUMMARY | 2019-12-20 23:27 | XMS REPORT | Summary of Care ---
:[address] 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 [address] [facility] [id number] [place] [id number] Reason for Visit Reason Comments Nausea Epigastric Pain Auth/Cert Status Reason Specialty Diagnoses / Referred By Referred To Procedures Contact Contact Emergency Medicine [facility] Em ergency Dept [address] [place] [id number] Fax: Encounter Details Date Type Department Care Team Description 12/18/2019 Emergency ADC-Emergency Meka Hassan G, Intractab le vomiting with nausea, unspecified vomiting type (Primary Dx); 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 gabapentin Take 300 mg by 0 Acti ve (NEURONTIN) 300 mg mouth 3 (three) capsule times daily. QUEtiapine (SEROQUEL) Take 300 mg [...] CREON 36,000-114,000- Take by mouth 3 0 Active 180,000 unit CpDR (three) times 9 daily with meals. pantoprazole 40 mg EC Take 1 tablet by 60 tablet 0 Active tabletIndications: mouth 2 (two) 9 Gastroesophageal times daily. reflux disease, esophagitis presence not specified proMETHazine 25 mg Take 1 tablet by 28 tablet 0 Active tabletIndications: mouth every 6 9 Acute on chronic (six) hours as pancreatitis needed for N/V alternating with Ondansetron. HYDROcodone-acetamino Take 1 tablet by 20 tablet 0 Active phen 7.5-325 mg per mouth every 6 9 tabletIndications: (six) hours as Acute on chronic needed (Pain scal pancreatitis 7-10). traMADol 50 mg 1 by mouth every 40 tablet 0 Active tabletIndications: 4-6 hours as 9 Closed fracture of needed for pain right ankle, initial encounter chlordiazePOXIDE 10 Take 10 mg by 0 Active mg capsule mouth 3 (three) times daily. meloxicam 7.5 mg Take 7.5 mg by 0 Active tablet mouth daily. losartan 100 mg Take 1 tablet by 30 tablet 0 Active tabletIndications: mouth daily. 9 Essential hypertension ondansetron 4 mg Take 1 tablet by 20 tablet 0 Active tabletIndications: mouth every 8 9 Closed fracture of (eight) hours as distal end of right needed for Nausea tibia with routine and Vomiting healing, unspecified (N/V). fracture morphology, subsequent encounter traMADol 100 mg 24 hr Take 1 tablet by 15 tablet 0 Active tabletIndications: mouth daily. 0 Epigastric pain ondansetron 4 mg Take 1 tablet by 20 tablet 0 Active disintegrating mouth every 8 0 tabletIndications: (eight) hours as Epigastric pain needed for Nausea and Vomiting (N/V). ondansetron 4 mg Take 2 tablets by 20 tablet 0 Active disintegrating mouth every 8 0 tabletIndications: (eight) hours as Non-intractable needed for Nausea vomiting with nausea, and Vomiting unspecified vomiting (N/V). type Nitrofurantoin&Nit. Take 1 capsule by 14 capsule 0 Active Macrocryst (MACROBID) mouth 2 (two) 0 100 mg times daily. capsuleIndications: Acute cystitis without hematuria benzonatate 200 mg Take 1 capsule by 21 capsule 0 Active capsuleIndications: mouth 3 (three) 0 Acute bronchitis, times daily as unspecified organism needed for Cough. ondansetron (ZOFRAN) Take 1 tablet by 12 tablet 0 Active 4 mg mouth every 8 0 tabletIndications: (eight) hours as Acute bronchitis, needed for Nausea unspecified organism and Vomiting (N/V). traMADol (ULTRAM) 50 Take 1 tablet by 20 tablet 0 Active mg tabletIndications: mouth every 6 0 Acute bronchitis, (six) hours as unspecified organism needed for Pain (scale 7-10). albuterol 90 Inhale 2 Puffs 8.5 g 0 Ac tive mcg/actuation every 4 (four) 0 inhalerIndications: hours as needed Acute bronchitis, for Wheezing, unspecified organism Shortness of Breath, Bronchospasm or Chest tightness. proMETHazine Insert 1 16 Suppository 0 Ac tive (PHENERGAN) 25 mg Suppository into 0 suppositoryIndication rectum every 4 s: Cyclical vomiting (four) hours as syndrome needed for Nausea and Vomiting (N/V). documented as of this encounter (statuses as of 12/18/2019) Active Problems Problem Noted Date Abdominal pain [...] as of this encounter (statuses as of 12/18/2019) Social History Tobacco Use Types Packs/Day Years [...] Assigned at Date Recorded Not on file COVID-19 Exposure Response Date Recorded In the last month, have you been in contact with No / Unsure 12/18/2019 3:15 PM CDT someone who was confirmed or suspected to have Coronavirus / COVID-19? documented as of this encounter Last Filed Vital Signs Vital Sign Reading Time Taken Comments Blood Pressure 113/76 12/18/2019 6:30 PM CDT Pulse 57 12/18/2019 6:30 PM CDT Temperature 36.7 C (98 F) 12/18/2019 3:24 PM CDT Respiratory Rate 18 12/18/2019 6:30 PM CDT Oxygen Saturation 99% 12/18/2019 6:30 PM CDT Inhaled Oxygen Concentration - - Weight 77.1 kg (170 lb) 12/18/2019 3:24 PM CDT Height 152.4 cm (5') 12/18/2019 3:24 PM CDT Body Mass Index 33.2 12/18/2019 3:24 PM CDT documented in this encounter Discharge Instructions InstructionsMeka Hassan NP - 12/18/2019Diagnosis: Cyclical vomiting syndrome Chronic pancreatitis Prescription for phenergan suppositories sent to [facility] Follow up with your PCP / GI Return for acute worsening AttachmentsThe following attachments cannot be sent through Care Everywhere. Pancreatitis, Chronic, Discharge Instructions for (Swedish)Cyclic Vomiting Syndrome, Understanding (Swedish)documented in this encounter ED Notes Merline Perez RN - 12/18/2019 3:23 PM CDTNausea, epigastric pain since waking this morning. States she has history of chronic pancreatitis. documented in this encounter Miscellaneous Notes ED Nurse Note - Reshma Velzaquez RN - 12/18/2019 7:14 PM CDTPt given printed and verbal discharge instructions regarding intractable vomiting, encouraged hydration, Prescriptions provided Phenergan Discussed ibuprofen and to take with food to avoid GI distress. Discussed tramadol/phenergan/Tylenol # 3 side affects and to avoid driving/operating machinery/or engaging in activities requiring alertness while taking. Pt verbalized understanding of instructions, pt awake alert oriented, resp reg unlabored, skin w/d, color appropriate for race, moves all ext well,pt encouraged to follow up with PCP. Advised to seek medical attention for new/prolonged/worsening of symptoms, Symptoms any signs of infection, fever over 100.4 No adverse reaction to meds given in ER noted upon discharge PIV d'cd, dressing to site, catheter in tact. Awake, alert oriented, resp reg unlabored, skin w/d, pt leaving amb with steady gait, in no apparent distress, D Nurse Note - Reshma Velazquez RN - 12/18/2019 6:40 PM CDTP.O. challenged patient with water and instructed her if shes able to tolerate that then she can have juice. Will reassess. D Nurse Note - Tosha Redd RN - 12/18/2019 5:33 PM CDTPatient request anti-nausea medication and pain medications informed provider. documented in this encounter Plan of Treatment Health Maintenance Due Date Last Done Comments PNEUMOCOCCAL 0-64 YEARS COMBINED SERIES (1 of 1 - 1968 PPSV23) DTaP,Tdap,and Td Vaccines (1 - Tdap) 1981 PAP SMEAR 11/02/1983 Breast Cancer Screening (MAMMOGRAM) 2002 COLON CANCER SCREENING ANNUAL FIT/FOBT 2012 COLON CANCER SCREENING FIT DNA EVERY 3 YEARS 2012 COLON CANCER SCREENING SIGMOIDOSCOPY EVERY 5 YEARS 2012 COLONOSCOPY 2012 Colorectal Cancer Screening 2012 Zoster Recombinant Vaccine (SHINGRIX) (1 of 2) 2012 INFLUENZA VACCINE (#1) 2019 Depression Screening 01/24/2020 01/23/2019 HEPATITIS C (HCV) SCREEN Completed 11/15/2018 documented as of this encounter Procedures Procedure Name Priority Date/Time Associated Diagnosis Comme nts CT ABDOMEN PELVIS W STAT 12/18/2019 5:11 Intractable vomit ing Results for this CONTRAST PM CDT with nausea, procedure are i n unspecified vomiting the res ults type section. URINALYSIS STAT 12/18/2019 4:07 Intractable vomiting Res ults for this PM CDT with nausea, procedure are i n unspecified vomiting the res ults type section. CBC WITH DIFF STAT 12/18/2019 3:39 Intractable vomiting Re sults for this PM CDT with nausea, procedure are i n unspecified vomiting the res ults type section. BASIC METABOLIC STAT 12/18/2019 3:39 Intractable vomiting Results for this PANEL (NA, K, CL, PM CDT with nausea, procedure are in CO2, GLUCOSE, BUN, unspecified vomiting t he results CREATININE, CA) type section. HEPATIC FUNCTION STAT 12/18/2019 3:39 Intractable vomiting Results for this PANEL (35809) PM CDT with nausea, procedure are in (ALB,T.PRO,BILI unspecified vomiting the results T,BU/BC,ALT,AST,ALK type section. PHOS) TROPONIN I STAT 12/18/2019 3:39 Intractable vomiting Res ults for this PM CDT with nausea, procedure are i n unspecified vomiting the res ults type section. LIPASE STAT 12/18/2019 3:39 Intractable vomiting Res ults for this PM CDT with nausea, procedure are i n unspecified vomiting the res ults type section. CONSENT/REFUSAL FOR Routine 12/18/2019 3:15 DIAGNOSIS AND PM CDT TREATMENT documented in this encounter Results CT ABDOMEN PELVIS W CONTRAST (12/18/2019 5:11 PM CDT) Specimen Impressions Performed At 1. Mild circumferential urinary bladder wall thicken ing out of PACS/VR/DOSE proportion to degree of distention with subtle urothelial hyperen hancement. Correlate with UA to exclude UTI/cystitis. 2. Otherwise, no radiographic findings to explain patient's abdominal pain. 3. Status post cholecystectomy and pneumobilia. Pricila elate with procedural history including sphincterectomy. 4. Technically indeterminate uncinate process 1.2 cm lesion without discernible connection to the pancreatic duct, unchanged since February 2019. Recommend MRI/MRCP. Narrative Performed At CT ABDOMEN AND PELVIS WITH CONTRAST PACS/VR/DOSE REASON FOR STUDY: Abd pain, acute, gener alized COMPARISON: None available. TECHNIQUE: Multidetector axial CT images from lung bas es through proximal thighs after IV administration of nonion ic iodinated contrast material. Coronal and sagittal MPR images also gen erated. INTRAVENOUS CONTRAST ADMINISTRATION (mL Omnipaque 350): 120. FINDINGS: Lower chest: Clear lung bases. ABDOMEN AND PELVIS Liver: No focal hepatic lesion identifie d. Biliary Tract/GB: Status post cholecyste ctomy. Small central pneumobilia with gas extending into the nondilated CBD. No biliary ductal dilatation. Spleen: No splenomegaly. Pancreas: Technically indeterminate 1.3 cm hypoattenuation within the uncinate process (3:65 and 5:46) does not appear to be in continue with the with the pancreatic duct. No significant pancreatic atrophy. Adrenals: Within normal limits. Kidneys: Kidneys enhance symmetrically. No hydronephrosis or nephrolithiasis. 7 mm hypoattenuating lesion within th e right upper renal pole is too small to characterize (3:68). Mildly lobul ated bilateral renal contour. Bowel: No abnormal bowel dilatation or w all thickening. Appendix is not visualized with suggestion of appendecto my. Peritoneum: No free fluid or pneumoperit oneum. Vasculature: Within normal limits. Lymph Nodes: Within normal limits. Pelvic organs: Circumferential urinary b ladder wall thickening out of proportion to degree of distention and w ith subtle urothelial hyperenhancement. Uterus and ovaries are unremarkable for patient's age. Abdominal/Pelvic Wall: Tiny fat-containi ng umbilical hernia. BONES: No acute or aggressive osseous un remarkable. No laryngeal degenerative changes scattered throughou t the visualized spine. Procedure Note [facility], Radiant Results Inft User - 2019 6:[address] ABDOMEN AND PELVIS WITH CONTRAST REASON FOR STUDY: Abd pain, acute, gener alized COMPARISON: None available. TECHNIQUE: Multidetector axial CT images from lung bases through proximal thighs after IV administration of nonion ic iodinated contrast material. Coronal and sagittal MPR images also gen erated. INTRAVENOUS CONTRAST ADMINISTRATION (mL Omnipaque 350): 120. FINDINGS: Lower chest: Clear lung bases. ABDOMEN AND PELVIS Liver: No focal hepatic lesion identifie d. Biliary Tract/GB: Status post cholecyste ctomy. Small central pneumobilia with gas extending into the nondilated C BD. No biliary ductal dilatation. Spleen: No splenomegaly. Pancreas: Technically indeterminate 1.3 cm hypoattenuation within the uncinate process (3:65 and 5:46) does no t appear to be in continue with the with the pancreatic duct. No significant pancreatic atrophy. Adrenals: Within normal limits. Kidneys: Kidneys enhance symmetrically. No hydronephrosis or nephrolithiasis. 7 mm hypoattenuating le boyd within the right upper renal pole is too small to characterize (3:68) . Mildly lobulated bilateral renal contour. Bowel: No abnormal bowel dilatation or w all thickening. Appendix is not visualized with suggestion of appendecto my. Peritoneum: No free fluid or pneumoperit oneum. Vasculature: Within normal limits. Lymph Nodes: Within normal limits. Pelvic organs: Circumferential urinary b ladder wall thickening out of proportion to degree of distention and w ith subtle urothelial hyperenhancement. Uterus and ovaries are unremarkable for patient's age. Abdominal/Pelvic Wall: Tiny fat-containi ng umbilical hernia. BONES: No acute or aggressive osseous un remarkable. No laryngeal degenerative changes scattered throughou t the visualized spine. IMPRESSION 1. Mild circumferential urinary bladder wall thickening out of proportion to degree of distention with subtle urot helial hyperenhancement. Correlate with UA to exclude UTI/cystitis. 2. Otherwise, no radiographic findings to explain patient's abdominal pain. 3. Status post cholecystectomy and pneu mobilia. Correlate with procedural history including sphincterectomy. 4. Technically indeterminate uncinate p rocess 1.2 cm lesion without discernible connection to the pancreatic duct, unchanged since February 2019. Recommend MRI/MRCP. Performing Organization Address City/[facility] Phone Number PACS/VR/DOSE Urinalysis (12/18/2019 4:07 PM CDT) Pathologist Sig nature APPEARANCE Clear Clear [facility] COLOR Yellow Yellow [facility] PH 7.0 4.8 - 8.0 [facility] SP GRAVITY 1.016 1.003 - 1.030 [facility] GLU U QUAL Normal Normal [facility] BLOOD Negative Negative [facility] KETONES Negative Negative [facility] PROTEIN Negative Negative [facility] UROBILIN 4.0 mg/dL (A) Normal [facility] BILIRUBIN Negative Negative [facility] NITRITE Negative Negative [facility] LEUK NICHOLE Negative Negative [facility] RBC/HPF 0 0 - 3 HPF [facility] WBC/HPF 1 0 - 5 HPF [facility] BACTERIA Few (A) Negative [facility] MUCOUS Slight (A) Negative LPF [facility] SQ EPITH 4 HPF [facility] HYAL CAST 1 <=2 LPF [facility] Specimen Urine - URINE, CLEAN CATCH Performing Organization Address [facility] Phone Number [facility] CLIA: [id number] [place] [address] [address] Troponin I (12/18/2019 3:39 PM CDT) Pathologist [facility] TROPONIN I <0.012 <=0.034 ng/mL [facility] Specimen Blood - VENOUS Narrative Performed At Equal or Less than 0.034 ng/ml---Normal [facility] Note: Cardiac troponin begins to [...] patient's use of biotin. Performing Organization Address [facility] Phone Number [facility] CLIA: [id number] [place] [address] [place] [address] Lipase Serum (12/18/2019 3:39 PM CDT) [facility] LIPASE 267 (H) 0 - 220 U/L [facility] Specimen Blood - VENOUS Performing Organization Address [facility] Phone Number [facility] CLIA: [id number] [place] [address] [address] Hepatic Function Panel (ALB, T.PRO, BILI T, BU/BC, ALT, AST, ALK PHOS) (12/18/2019 3:39 PM CDT) Pathologist [facility] TOTAL BILI 1.0 0.1 - 1.1 mg/dL [facility] BILI UNCON 0.6 0.1 - 1.1 mg/dL [facility] BILI CONJ 0.0 0.0 - 0.3 mg/dL [facility] T PROTEIN 7.8 6.3 - 8.2 g/dL [facility] ALBUMIN 4.3 3.5 - 5.0 g/dL [facility] ALK PHOS 580 (H) 34 - 122 U/L [facility] ALTv 199 (H) 5 - 35 U/L [facility] AST(SGOT) 215 (H) 13 - 40 U/L [facility] Specimen Blood - VENOUS Performing Organization Address City/State/Zipcode Phone Number [facility] CLIA: [id number] [place] [address] Basic Metabolic Panel (NA, K, CL, CO2, GLUCOSE, BUN, CREATININE, CA) (12/18/2019 3:39 PM CDT) [facility] NA 138 135 - 145 mmol/L [facility] K 4.8 3.5 - 5.0 mmol/L [facility] CL 104 98 - 108 mmol/L [facility] CO2 TOTAL 27 23 - 31 mmol/L [facility] AGAP 7 2 - 16 [facility] BUN 12 7 - 23 mg/dL [facility] GLUCOSE 101 70 - 110 mg/dL [facility] CREATININE 0.70 0.50 - 1.04 [facility] mg/dL [facility] CALCIUM 9.3 8.6 - 10.6 mg/dL [facility] eGFR Calculation 86.2 mL/min/1.73m2 [facility] (Non-) [facility] LABORATOR Y eGFR Calculation 104.5 mL/min/1.73m2 [facility] () [facility] Specimen Blood - VENOUS Narrative Performed At Association of Glomerular Filtration Rate (GFR) [facility] and Staging of Kidney Disease* [...] tests). Performing Organization Address City/State/Zipcode Phone Number [facility] CLIA: [id number] [place] [address] CBC with Differential (12/18/2019 3:39 PM CDT) WBC 4.08 (L) 4.30 - 11.10 [facility] 10*3/L [facility] RBC 3.26 (L) 3.93 - 5.25 [facility] 10*6/L [facility] HGB 10.3 (L) 11.6 - 15.0 [facility] g/dL [facility] HCT 32.5 (L) 35.7 - 45.2 % [facility] MCV 99.7 (H) 80.6 - 95.5 [facility] LABORATORY MCH 31.6 25.9 - 32.8 [facility] LABORATORY MCHC 31.7 31.6 - 35.1 [facility] g/dL [facility] RDW-SD 54.6 (H) 39.0 - 49.9 [facility] LABORATORY RDW-CV 14.9 12.0 - 15.5 % [facility] PLT 153 (L) 166 - 358 [facility] 10*3/L [facility] MPV 9.5 9.5 - 12.9 [facility] LABORATORY IPF % 1.5Comment: Platelet 1.3 - 7.7 % [facility] count measured by HOSPITAL fluorescence method. LABORATORY NRBC/100 WBC 0.0 0.0 - 10.0 [facility] /100 WBCs [facility] NRBC x10^3 <0.01 10*3/L [facility] GRAN MAT (NEUT) % 64.0 % [facility] IMM GRAN % 1.00 % [facility] LYMPH % 22.5 % [facility] MONO % 11.0 % [facility] EOS % 1.0 % [facility] BASO % 0.5 % [facility] GRAN MAT 2.61 1.88 - 7.09 [facility] x10^3(ANC) 10*3/uL [facility]OSPITAL LABORATORY IMM GRAN x10^3 0.04 0.00 - 0.06 [facility] 10*3/uL [facility]OSPITAL LABORATORY LYMPH x10^3 0.92 (L) 1.32 - 3.29 [facility] 10*3/uL [facility]ITAL LABORATORY MONO x10^3 0.45 0.33 - 0.92 [facility] 10*3/uL [facility] EOS x10^3 0.04 0.03 - 0.39 [facility] 10*3/uL [facility] BASO x10^3 <0.03 0.01 - 0.07 [facility] 103/uL [facility] Specimen Blood - VENOUS Performing Organization Address City/State/Zipcode Phone Number [facility] CLIA: [id number] [place] [address] documented in this encounter Visit Diagnoses Diagnosis Intractable vomiting with nausea, unspec ified vomiting type - Primary Cyclical vomiting syndrome Persistent vomiting Chronic narcotic use Other, mixed, or unspecified nondependen t drug abuse, unspecified Chronic pancreatitis, unspecified pancre atitis type documented in this encounter Administered Medications Medication Order MAR Action Action Date Dose Rate Site FENTanyl PF (SUBLIMAZE (PF)) Given 12/18/2019 5:50 PM CDT 50 mc g injection 50 mcg 50 mcg, Slow IV Push, ONCE, 1 dose, Sat12/18/19 at 1845, Routine haloperidol lactate (HALDOL) injection 2.5 Given 12/18/2019 5:50 PM CDT 2.5 mg mg 2.5 mg, Intravenous, ONCE, 1 dose, Sat12/18/19 at 1845, STAT iohexol (OMNIPAQUE 350 BULK-100 mL) Given 12/18/2019 5:02 PM CD T 120 mL injection 120 mL 120 mL, Intravenous, ONCE, 1 dose, Sat12/18/19 at 1715, Routine proMETHazine (PHENERGAN) 25 mg in NaCl 0.9% Given 12/18/2019 3:40 PM CDT 25 mg (NS) 50 mL piggyback 25 mg, IV Piggyback, ONCE, 1 dose, Sat12/18/19 at 1630, 50 mL documented in this encounter Insurance Payer Benefit Plan / Subscriber ID Effective Phone Address T ype Group Dates CIGNA CIGNA II [id number] 2018-Prese HMO /PPO/POS nt MEDICARE MEDICARE PART [id number] 2015-Prese [phone] [address] [place] Medicare A & B nt [id number] [place] [id number] documented as of this encounter Advance Directives Name Relationship Healthcare Agent Communication Relationship Puneet Aleman Spouse Health Care Agent [email or web address]
--- OUTSIDE RECORDS SUMMARY | 2019-12-20 23:27 | XMS REPORT ---
[...] Dosage System Date Date Seroquel XR [facility] 23185532161 300 MG Orally Active 1 tablet Once a day in the evening Lexapro [facility] 53667864559 20 MG Orally Active 1 table t Once a day Flonase [facility] 66976749606 50 MCG/ACT Active 2 spray Nasally Once a in each day nostril Robaxin-750 [facility] 32487166262 750 MG Orally Active 1 tablet every 4 hrs Losartan [facility] 04282929966 100 MG Active TAKE 1 Potassium TABLET BY MOUTH EVERY DAY Phenergan [facility] [address]-54 25mg Po Q 12 Active one hours tablet Doxycycline ND 07902758313 100 MG Orally Active 1 capsule Hyclate twice a day Diazepam [facility] 17876360013 5 MG Orally Active 1 table t Once a day prn as needed panic attacks Gabapentin ND 85541441950 300 MG Orally Active 1 c apsule Once a day PredniSONE ND 50749457709 10 MG Orally Active 2 ta blet Once a day daily x 5 days then one tablet daily x 5 days Losartan ND 66009980329 100 MG Orally Active 1 tab let Potassium Once a day Chlorhexidine [facility] 32832960517 0.12 % Mouth October 05September Active 15 ML Gluconate twice a day 2019 and 2019 spit Azithromycin ND 09251368280 250 MG Orally Active 2 tablets Once a day on the first day, then 1 tablet daily for 4 days Results No Known Results Summary Purpose eClinicalWorks Submission
[2019-12-21] MEDS ORDERED: ONDANSETRON 4 MG/2 ML VIAL ONE
[2019-12-21] MEDS ORDERED: MORPHINE 4 MG/ML SYR ONE
[2019-12-21 00:25] LABS: Absolute Lymphocytes (CBC) 1.5 K/uL (0.7-4.9); Basophils % 0.4 % (0-1.3); Hematocrit 29.1 % (36.0-45.0); Lymphocytes % 27.1 % (15.3-44.8); MPV 7.2 fL (7.6-11.3); RBC Red Blood Cell Count 3.04 M/uL (3.86-4.86)
[2019-12-21 00:36] LABS: Albumin 3.2 g/dL (3.4-5.0); Bilirubin Direct 0.4 mg/dL (0-0.2); Bilirubin Total 0.6 mg/dL (0.2-1.0); Potassium 4.2 mmol/L (3.5-5.1); Protein, Total 7.6 g/dL (6.4-8.2)
[2019-12-21] MEDS ORDERED: PANTOPRAZOLE 40 MG INJ ONE (01:11)
[2019-12-21] MEDS ORDERED: FENTANYL CITR 100 MCG/2 ML ONE (01:11)
[2019-12-21] MEDS ORDERED: MAGNE/ALUM HYDROXD 30 ML UCUP ONE (01:11)
[2019-12-21] MEDS ORDERED: LIDOCAINE VISCOUS 2% SOLN 15 ML UDC ONE (01:12)
--- NOTE | 2019-12-21 01:42 | ER ---
Nurse's Notes [facility] Name: Yessenia Aleman Age: 59 yrs Sex: Female : 1960 Arrival Date: 12/20/2019 Time: 23:23 Bed 13 Private MD: Diagnosis: Abdominal tenderness Presentation: 12/19 23:34 Chief complaint: Patient states: RUQ abdominal pain wrapping around abdomen, neck pain; lp1 states seen here a few days ago for same complaint but pain has worsened; Follow-up with [facility] but unable to get appt until January; Complaint of nausea, vomiting. Coronavirus screen: Client denies travel out of the [place] in the last 14 days. At this time, the client does not indicate any symptoms associated with coronavirus-19. Ebola Screen: No symptoms or risks identified at this time. Risk Assessment: Do you want to hurt yourself or someone else? Patient reports no desire to harm self or others. Onset of symptoms was December 20, 2019. 23:34 Method Of Arrival: Ambulatory lp1 23:34 Acuity: HOLLI 3 lp1 23:59 Initial Sepsis Screen: Does the patient meet any 2 criteria? No. Patient's initial rv sepsis screen is negative. Does the patient have a suspected source of infection? No. Patient's initial sepsis screen is negative. Triage Assessment: 23:56 General: Appears comfortable, Behavior is calm, cooperative. Pain: Complains of pain in rv right upper quadrant. EENT: No signs and/or symptoms were reported regarding the EENT system. Neuro: Level of Consciousness is awake, alert, obeys commands, Oriented to person, place, time, situation. Cardiovascular: Patient's skin is warm and dry. Respiratory: Airway is patent. GI: Abdomen is round non-distended. Derm: Skin is intact. Historical: - Allergies: 23:37 Codeine; lp1 - Home Meds: 23:37 [place] 10-325 mg Oral tab 1 tab twice a day for Pain [Active]; Ursodiol Oral [Active]; lp1 Phenergan Oral [Active]; Phenergan Supp Rectal [Active]; losartan 100 mg Oral tab 1 tab once daily for Hypertension [Active]; - PMHx: 23:37 Anxiety; Arthritis; biliary chirrosis; biliary disease; CHF; Chronic Pancreatitis; lp1 Hypertension; Pancreatitis; Pneumonia; - PSHx: 23:37 Cholecystectomy; Bile duct stent; Appendectomy; lp1 - Immunization history:: Adult Immunizations up to date. - Social history:: Smoking status: Patient denies any tobacco usage or history of. Screenin:37 Abuse screen: Denies threats or abuse. Denies injuries from another. Nutritional lp1 screening: No deficits noted. Tuberculosis screening: No symptoms or risk factors identified. 12/20 00:35 Fall Risk None identified. rv Assessment: 12/19 23:59 GI: Bowel sounds present X 4 quads. Abd is soft and non tender X 4 quads. rv 12/20 01:07 Reassessment: pain increased. assessed abdomen. denies nausea and vomiting. referred to rv Dr Fritz. new orders received. medications administered as ordered. Neuro: Level of Consciousness is awake, alert, obeys commands, Oriented to person, place, time, situation. GI: Bowel sounds present X 4 quads. Abd is soft and non tender X 4 quads. Abd is non tender X 4 quads. 02:03 Reassessment: Patient and/or family updated on plan of care and expected duration. Pain ea level reassessed. Patient is alert, oriented x 3, equal unlabored respirations, skin warm/dry/pink. Discharge instruction given to patient, verbalized the understanding of instruction. Pt left ED ambulatory family at facility for transportation back home. Vital Signs: 12/19 23:38 Weight 79.38 kg (R); Height 5 ft. 0 in. (152.40 cm); Pain 8/10; lp1 23:59 BP 142 / 88; Pulse 79; Resp 17; Temp 99.2; Pulse Ox 97% on R/A; rv 12/20 00:35 BP 134 / 76; Pulse 79; Resp 16; Temp 98.4; Pulse Ox 96% on R/A; rv 01:07 BP 140 / 94; Pulse 77; Resp 16; Pulse Ox 95% on R/A; rv 12/19 23:38 Body Mass Index 34.18 (79.38 kg, 152.40 cm) lp1 ED Course: 12/19 23:23 Patient arrived in ED. cf2 23:28 Darshan Chaparro RN is Primary Nurse. rv 23:29 Mateusz Fritz MD is Attending Physician. tw4 23:35 Triage completed. lp1 23:37 Arm band placed on. lp1 23:45 Initial lab(s) drawn, by me, sent to lab. Inserted saline lock: 20 gauge in right rv forearm, using aseptic technique. Blood collected. 12/20 00:36 Patient has correct armband on for positive identification. Pulse ox on. NIBP on. rv 02:00 IV discontinued, intact, bleeding controlled, No redness/swelling at site. Pressure ea dressing applied. 02:04 No provider procedures requiring assistance completed. ea Administered Medications: 12/19 23:53 Drug: morphine 4 mg {Note: rass 0.} Route: IVP; Site: right forearm; rv 12/20 01:05 Follow up: Response: No adverse reaction; Pain is decreased; RASS: Alert and Calm (0) rv 12/19 23:53 Drug: Zofran (Ondansetron) 4 mg Route: IVP; Site: right forearm; rv 12/20 01:07 Follow up: Response: No adverse reaction rv 01:04 Drug: ProTONIX 40 mg Route: IVP; Site: right forearm; rv 01:35 Follow up: Response: No adverse reaction ea 01:04 Drug: fentaNYL (PF) 25 mcg {Note: rass 0.} Route: IVP; Site: right forearm; rv 01:35 Follow up: Response: Pain is decreased; RASS: Alert and Calm (0) ea 01:05 Drug: GI Cocktail without - (Maalox Suspension 30 ml, Lidocaine Liquid 2 % 15 rv ml) Route: PO; 02:03 Follow up: Response: No adverse reaction ea 01:55 Drug: TORadol - Ketorolac 15 mg Route: IVP; Site: right wrist; ea 02:03 Follow up: Response: Medication administered at discharge. ea Outcome: 01:41 Discharge ordered by . tw4 02:04 Discharged to home ambulatory, with family. ea 02:04 Condition: stable 02:04 Discharge instructions given to patient, Instructed on discharge instructions, follow up and referral plans. medication usage, Demonstrated understanding of instructions, follow-up care, medications, Prescriptions given X 2. 02:05 Patient left the ED. ea Signatures: Ignacia Whitney RN RN lp1 Xochitl Rico RN RN ea Mateusz Fritz MD MD tw4 Darshan Chaparro, RN RN rv [place] Flores cf2 Corrections: (The following items were deleted from the chart) 02:03 02:02 TORadol - Ketorolac 15 mg IVP in right antecubital ea ea
--- NOTE | 2019-12-21 01:42 | EDPHYS ---
Physician Documentation [facility] Name: Yessenia Aleman Age: 59 yrs Sex: Female : 1960 Arrival Date: 12/20/2019 Time: 23:23 Bed 13 Private MD: ED Physician Mateusz Fritz HPI: 12/20 06:37 This 59 yrs old Female presents to ER via Ambulatory with complaints of tw4 Abdominal Pain, Back Pain, Neck and Upper Back Pain, Nausea/Vomiting. 06:37 The patient presents with abdominal pain. Onset: The symptoms/episode began/occurred 3 tw4 day(s) ago. The symptoms do not radiate. Associated signs and symptoms: none. The symptoms are described as sharp. Modifying factors: The symptoms are alleviated by nothing, the symptoms are aggravated by nothing. Severity of pain: At its worst the pain was moderate in the emergency department the pain is unchanged. The patient has experienced similar episodes in the past, several times. Historical: - Allergies: 12/19 23:37 Codeine; lp1 - Home Meds: 23:37 [place] 10-325 mg Oral tab 1 tab twice a day for Pain [Active]; Ursodiol Oral [Active]; lp1 Phenergan Oral [Active]; Phenergan Supp Rectal [Active]; losartan 100 mg Oral tab 1 tab once daily for Hypertension [Active]; - PMHx: 23:37 Anxiety; Arthritis; biliary chirrosis; biliary disease; CHF; Chronic Pancreatitis; lp1 Hypertension; Pancreatitis; Pneumonia; - PSHx: 23:37 Cholecystectomy; Bile duct stent; Appendectomy; lp1 - Immunization history:: Adult Immunizations up to date. - Social history:: Smoking status: Patient denies any tobacco usage or history of. ROS: 12/20 06:37 Constitutional: Negative for fever, chills, and weight loss, Eyes: Negative for injury, tw4 pain, redness, and discharge, Cardiovascular: Negative for chest pain, palpitations, and edema, Respiratory: Negative for shortness of breath, cough, wheezing, and pleuritic chest pain, Back: Negative for injury and pain, MS/Extremity: Negative for injury and deformity, Skin: Negative for injury, rash, and discoloration, Neuro: Negative for headache, weakness, numbness, tingling, and seizure. Abdomen/GI: Positive for abdominal pain, Negative for nausea and vomiting, nausea, vomiting, and diarrhea. Exam: 06:37 Constitutional: This is a well developed, well nourished patient who is awake, alert, tw4 and in no acute distress. Head/Face: Normocephalic, atraumatic. Chest/axilla: Normal chest wall appearance and motion. Nontender with no deformity. No lesions are appreciated. Cardiovascular: Regular rate and rhythm with a normal S1 and S2. No gallops, murmurs, or rubs. Normal PMI, no JVD. No pulse deficits. Respiratory: Lungs have equal breath sounds bilaterally, clear to auscultation and percussion. No rales, rhonchi or wheezes noted. No increased work of breathing, no retractions or nasal flaring. Back: No spinal tenderness. No costovertebral tenderness. Full range of motion. MS/ Extremity: Pulses equal, no cyanosis. Neurovascular intact. Full, normal range of motion. Neuro: Awake and alert, GCS 15, oriented to person, place, time, and situation. Cranial nerves II-XII grossly intact. Motor strength 5/5 in all extremities. Sensory grossly intact. Cerebellar exam normal. Normal gait. Vital Signs: 12/19 23:38 Weight 79.38 kg (R); Height 5 ft. 0 in. (152.40 cm); Pain 8/10; lp1 23:59 BP 142 / 88; Pulse 79; Resp 17; Temp 99.2; Pulse Ox 97% on R/A; rv 12/20 00:35 BP 134 / 76; Pulse 79; Resp 16; Temp 98.4; Pulse Ox 96% on R/A; rv 01:07 BP 140 / 94; Pulse 77; Resp 16; Pulse Ox 95% on R/A; rv 12/19 23:38 Body Mass Index 34.18 (79.38 kg, 152.40 cm) lp1 MDM: 12/19 23:29 Patient medically screened. tw4 12/20 06:37 Data reviewed: vital signs, nurses notes. Data interpreted: Pulse oximetry: tw4 Interpretation: normal. Counseling: I had a detailed discussion with the patient and/or guardian regarding: the historical points, exam findings, and any diagnostic results supporting the discharge/admit diagnosis. Special discussion: I discussed with the patient/guardian in detail that at this point there is no indication for admission to the hospital. It is understood, however, that if the symptoms persist or worsen the patient needs to return immediately for re-evaluation. 12/19 23:29 Order name: Basic Metabolic Panel; Complete Time: 00:53 12/20 00:53 Interpretation: Normal except: CL 109; GFR 77. tw4 12/19 23:29 Order name: CBC with Diff; Complete Time: 00:53 4 12/20 00:53 Interpretation: Normal except: WBC 5.6; RBC 3.04; HGB 9.8; HCT 29.1; PLT 180. tw4 12/19 23:29 Order name: Hepatic Function; Complete Time: 00:53 4 12/20 00:53 Interpretation: Normal except: AST 128; ALT 137; ALK 619; BILID 0.4; ALB 3.2; GLOB 4.4; tw4 A/G 0.7. 12/19 23:29 Order name: Lipase; Complete Time: 00:53 4 12/20 00:53 Interpretation: Within normal limits: LIP 323. tw4 12/19 23:29 Order name: IV Saline Lock; Complete Time: 23:54 4 12/19 23:29 Order name: Labs collected and sent; Complete Time: 23:55 4 Administered Medications: 12/19 23:53 Drug: morphine 4 mg {Note: rass 0.} Route: IVP; Site: right forearm; rv 12/20 01:05 Follow up: Response: No adverse reaction; Pain is decreased; RASS: Alert and Calm (0) rv 12/19 23:53 Drug: Zofran (Ondansetron) 4 mg Route: IVP; Site: right forearm; rv 12/20 01:07 Follow up: Response: No adverse reaction rv 01:04 Drug: ProTONIX 40 mg Route: IVP; Site: right forearm; rv 01:35 Follow up: Response: No adverse reaction ea 01:04 Drug: fentaNYL (PF) 25 mcg {Note: rass 0.} Route: IVP; Site: right forearm; rv 01:35 Follow up: Response: Pain is decreased; RASS: Alert and Calm (0) ea 01:05 Drug: GI Cocktail without - (Maalox Suspension 30 ml, Lidocaine Liquid 2 % 15 rv ml) Route: PO; :03 Follow up: Response: No adverse reaction ea 01:55 Drug: TORadol - Ketorolac 15 mg Route: IVP; Site: right wrist; ea 02:03 Follow up: Response: Medication administered at discharge. ea Disposition: 12/21/19 01:41 Discharged to Home. Impression: Abdominal tenderness. - Condition is Stable. - Discharge Instructions: Abdominal Pain, Adult, [id number]. - Prescriptions for Bentyl 20 mg Oral Tablet - take 1 tablet by ORAL route every 6 hours As needed; 20 tablet. Protonix 40 mg Oral Tablet - take 1 tablet by ORAL route once daily; 30 tablet. - Medication Reconciliation Form, Thank You Letter, Antibiotic Education, Prescription Opioid Use form. - Follow up: Private Physician; When: Upon discharge from the Emergency Department; Reason: Recheck today's complaints, Continuance of care, Re-evaluation by your physician. - Problem is new. - Symptoms have improved. Signatures: Dispatcher [employer] EDMS Ignacia Whitney RN RN lp1 Xochitl Rico RN RN ea Wadley, Terrence, MD MD tw4 Darshan Chaparro RN RN rv Corrections: (The following items were deleted from the chart) 02:05 01:41 12/21/2019 01:41 Discharged to Home. Impression: Abdominal tenderness. Condition ea is Stable. Forms are Medication Reconciliation Form, Thank You Letter, Antibiotic Education, Prescription Opioid Use. Follow up: Private Physician; When: Upon discharge from the Emergency Department; Reason: Recheck today's complaints, Continuance of care, Re-evaluation by your physician. Problem is new. Symptoms have improved. tw4
[2019-12-21] MEDS ORDERED: KETOROLAC 30 MG/ML INJ ONE (02:07)
[2019-12-21 20:37] VITALS: TEMP 98.4
[2019-12-21 20:39] VITALS: BP 140/94; O2SAT 95
== END 2019-12-21 02:05 | disposition home or self-care (01) ==
LOC: ER 23:22
DX: R10.819 Abdominal tenderness, unspecified site (principal); I10 Essential (primary) hypertension; I50.9 Heart failure, unspecified; F41.9 Anxiety disorder, unspecified; Z88.5 Allergy status to narcotic agent
CPT/HCPCS: 85025; 80048; 36415; 80076; 83690; 99284; C9113; J3010

== ENCOUNTER 2020-03-23 16:33 | Emergency (ER) | payer OTHER ==
[2011-11-06 03:57] VITALS: BP 139/94
[2020-03-23] MEDS ORDERED: MEPERIDINE HCL 50 MG/ML ONE ×2 (20:13→21:55)
[2020-03-23] MEDS ORDERED: ONDANSETRON 4 MG/2 ML VIAL ONE (20:13)
[2020-03-23] MEDS ORDERED: NA CHLORIDE 0.9% 500 ML ONE (20:13)
[2020-03-23 20:16] LABS: Basophils % 0.6 % (0-1.3); Hematocrit 28.4 % (36.0-45.0); Lymphocytes % 21.1 % (15.3-44.8); MPV 7.6 fL (7.6-11.3); RBC Red Blood Cell Count 3.05 M/uL (3.86-4.86)
[2020-03-23 20:33] LABS: Albumin 3.1 g/dL (3.4-5.0); Bilirubin Direct 0.5 mg/dL (0-0.2); Bilirubin Total 0.7 mg/dL (0.2-1.0); Potassium 4.9 mmol/L (3.5-5.1); Protein, Total 7.6 g/dL (6.4-8.2)
--- NOTE | 2020-03-23 20:49 | RAD REPORT ---
EXAM DESCRIPTION: CTAbdomen Pelvis W Contrast - 03/23/2020 8:22 pm CLINICAL HISTORY: Abdominal pain. Abd pain;Nausea / vomiting COMPARISON: <Comparisons> TECHNIQUE: Biphasic CT imaging of the abdomen and pelvis was performed with 100 ml non-ionic IV cont rast. All CT scans are performed using dose optimization technique as appropriate and may include automated exposure control or mA/KV adjustment according to patient size. FINDINGS: The lung bases are clear.Cholecystectomy clips. The liver, spleen, pancreas, adrenal glands and kidneys are within normal limits. Mild postsurgical p neumobilia. No bowel obstruction, free air, free fluid or abscess. Appendectomy. No evidence of significant lym phadenopathy. Mild lumbosacral degenerative changes. IMPRESSION: No acute intra-abdominal or pelvic finding.
--- OUTSIDE RECORDS SUMMARY | 2020-03-23 21:20 | XMS REPORT | Continuity of Care Document ---
:[address] [facility] t Address [address] [place] [address] Care Team Providers Name Role Phone James WEBSTER Attending Clinician Asaf PERRIN Attending Clinician Micaela WEBSTER Attending Clinician Mazin WEBSTER Attending Clinician Sonya HALL, G Attending Clinician Maxine Grayson MD Attending Clinician Won Fisher MD Attending Clinician Doctor Unassigned, Name Attending Clinician Unavailable Singer CANALES Attending Clinician Obdulia Vasquez MD Attending Clinician RAFAEL Mai-C Attending Clinician Unavailable Haley Cox Attending Clinician Unavailable PROVIDER, TEMP Attending Clinician Unavailable RADU Attending Clinician Unavailable To Attending Clinician Unavailable KRSI Attending Clinician Unavailable Bia CASTILLO Attending Clinician Unavailable Diego Grigsby MD Admitting Clinician Haley Cox Admitting Clinician Unavailable Problems This patient has no known problems. Allergies, Adverse Reactions, Alerts This patient has no known allergies or adverse reactions. Medications Ordered Filled Start Stop Current Ordering Indication Dosage Frequency Signature Comments Components Source Medication Medication Date Date Medication? Clinician (SIG) Name Name Chlorhexidi Chlorhexidi 2019- Na Slade [address] [facility] ne ne 10-05 [facility] Gluconate Gluconate 00:00: 00:00 spit Me moria 00 :00 l [facility] Losartan Losartan Yes Na Slade [address] [facility] Potassium Potassium [facility] Lexapro Lexapro Yes Na Slade [address] [facility] Seroquel XR Seroquel XR Yes Na Slade [address] [facility] Phenergan Phenergan Yes Na Slade one tablet [facility] Doxycycline Doxycycline Yes Na Slade [address] [facility] Hyclate Hyclate [facility] Azithromyci Azithromyci Yes Na Slade [address] [facility] n on the [facility] first day, [facility] then 1 l tablet Outpati daily for ent 4 days Clinics Robaxin-750 Robaxin-750 Yes Na Slade [address] [facility] Flonase Flonase Yes Na Slade [address] [facility] each [facility] Diazepam Diazepam Yes Na Slade [address] [facility] as needed [facility] PredniSONE PredniSONE Yes Na Slade [address] [facility] daily x 5 [facility] days then [facility] one tablet l daily x 5 Outpati days ent Clinics Gabapentin Gabapentin Yes Na Slade [address] [facility] Losartan Losartan Yes Na Slade TAKE [address] Potassium Potassium TABLET BY [facility]TH [facility] EVERY DAY l [facility] Procedures This patient has no known procedures. Encounters Start End Encounter Admission Attending Care Care Encounter Source Date/Time Date/Time Type Type Clinicians Facility Department ID 2020-03-08 2020-03-08 Out[facility] [id number] [facility] 2020-03-07 2020-03-07 Outpatient [facility] [id number] [facility] 2020-01-31 2020-02-08 [facility] Farshad Ramirez [facility] [id number] 10:39:00 16:12:00 Encounter Grisel Ron [facility] [id number] Pasha Hinojosa [id number] Formerly [facility] [phone] [place] [address] ([facility]) 2020-01-11 2020-01-11 Outpatient [facility] [id number] [facility] 2020-01-06 2020-01-06 Outpatient [facility] [id number] [facility] 2019-12-18 2019-12-18 [facility] [id number] 15:26:00 19:16:00 Meka Guidry [id number] [place] [id number] [place] [id number] 2019-10-06 2019-10-06 [facility] [id number] [address] 10:40:00 10:40:00 t Incanthera LuJaeger s - [facility] Family Medicine l Medicine Outpati ent Clinics 2019-09-17 2019-09-17 [facility] [id number] 10:24:00 10:24:00 t [place] [employer] Luke s - [facility] Family Medicine l Medicine Outpati ent Clinics 2019-08-21 2019-08-21 [facility] [id number] 19:42:19 23:51:00 Gabriele Guidry [id number] [place] [id number] [place] [id number] 2019-07-14 2019-07-14 [facility] [id number] 15:00:00 15:00:[address] [facility] Medicine Medicine [facility] 2019-06-25 2019-06-25 Emergency Ron, [facility] [id number] 16:52:11 20:04:00 Grisel Guidry [id number] [place] 4.2.7.2.686 [place] [id number] 2019-06-19 2019-06-19 [facility] [id number] 13:58:11 19:09:00 Skyler Guidry [id number] [place] 4.2.7.2.686 [place] [id number] 2019-06-19 2019-06-19 Orders Doctor HAMMER [id number] 00:00:00 00:00:00 Only Unassigned, KATHIE [id number] [place] [id number] [id number] 2019-05-19 2019-05-19 [facility] [id number] 18:29:04 21:26:00 Gary Guidry [id number] [place] [id number] [place] [id number] 2019-03-02 2019-03-02 [facility] [id number] 10:40:00 10:40:00 CE Interactive [facility] Medicine [facility] 2019-02-04 2019-02-04 [facility] [id number] 10:55:00 10:55:00 CE Interactive [employer] [facility] Medicine [facility] Clin[facility] 2018-12-24 2018-12-24 Telephone [facility] [id number] 00:00:00 00:00:00 [facility] [id number] Surgical [id number] [facility] [id number] hazel Steiner Chao 2018-10-07 2018-10-07 [facility] [id number] 11:00:00 11:00:00 t Incanthera [place] s [facility] 2018-07-28 2018-07-28 [facility] [id number] [facility] 09:57:00 09:57:00 t Incanthera Hamilton s [facility] 2018-07-25 2018-07-25 [facility] [id number] [facility] 14:40:00 14:40:00 [facility] Results Test Description Test Time Test Comments Results Result Comments Source Culture, Urine 2017-08-07 15:57:00 Test Item Value Reference Range Interpretation Comme nts Culture, Urine (test code = URC) NF Culture, Urine (test code = URC1) 10 NSF * This is a n EDITED result. * A prior result th at was reported as final has been change d. [id number] 22:53:00 Test Item Value Reference Range Interpretation [...] = UACAST) CAST LPF Urine Source: Urine [id number] SURGICAL PATHOLOGY, LEVEL [id number] 14:31:00 [place] [address] Laboratory Printed: 07/09/[address] [place] [address] DAEMPathology Page: 1 Patient: ZEKE ROMERO Birthdate: 1960 Age/Sex: 56/F Spec#: [id number]: HERMES SALAZAR Specimen Date: 07/08/17 [...] neutrophils. Pathologist:Kelvin Conway Entered by:07/09/171429 DEMOND PROCEDURES: 49654,60523/4 Patient: ZEKE ROMERO Re07/03/17Loc: T4-A MR#: [id number] CONTINUED ON NEXT PAGE Dis: 07/09/17ta: DIS IN - [address] [address] Laboratory Printed: 07/09/17 [facility]7 [facility] DAEMPathology Page: 2 Patient: ZEKE ROMERO [id number] (Continued) GROSS DESCRIPTION A. LIVER BIOPSY LEFT [...] by: DANII SHAHID Entered by:07/08/17 - 1316 [facility].YGP MICROSCOPIC DESCRIPTION A microscopic examination was performed to arrive at the diagnostic conclusion reported. Signed ___ ____(Electronically Signed) Kelvin 07/09/17 Patient: ZEKE ROMERO Re07/03/17Loc: T4-A MR#: [id number] END OF REPORT Dis: 07/09/17ta: DIS [id number] 05:13:00 Test Item Value Reference Range Interpretation [...] U/L 8-55 H = ALT) Reference Lab [id number] 04:14:00 Test Item Value Reference Range Interpretation Comments Reference Lab 10 U/mL 0-35 Laurent ECLIA Testing (test code methodolo gyPerformed at: HD = CA199) - [facility] [place] [address] [facility], [place] [id number] Di aimee: Chico Suero MD, Phone : [phone] Reference Lab [id number] 16:14:00 Test Item Value Reference Range Interpretation Comments Reference Lab Testing 128.5 Units 0.0-20.0 H (test code = MARLON) Negative 0.0 - 20.0 Equivocal 20.1 - 24.9 Positive >24.9Mitochondr ial (M2) Antibodies are found in 90-96% ofpatients with primary biliary cirrhosis.Perfo rmed at: [facility] [address] [id number] Director: Pj Rider MD, [facility] ne: [phone] Reference Lab [id number] 16:14:00 Test Item Value Reference Range Interpretation [...] testing of p ositive sera with both AZ-3 and MPO-ANCA enzyme immunoassays. A s many as 5% serumsamples are positive only b y EIA. Ref. AM J Clin Gezazz6045;111: 507-513. Reference Lab <1:20 titer Neg:<1:20 The atypical p ANCA pattern Testing (test has been obser chelita in code = ATANCA) asignificant percentage of patients with u lcerative colitis,primary sclerosing cholangitis and autoimmune hepatitis.Perfo rmed at: [facility]os[facility] [id number] Di aimee: Chester ramírez MD, Phone: [phone] [id number] 05:12:00 Test Item Value Reference Range Interpretation [...] 8-55 H code = ALT) Reference Lab [id number] 22:07:00 Test Item Value Reference Range Interpretation Comments Reference Lab Testing 785 IU/L 39-117 H (test code = ISOALKT) Reference Lab Testing 25 % 14-68 (test code = ISOALKBT) Reference Lab Testing 74 % 18-85 (test code = ISOALKLT) Reference Lab Testing 1 % 0-18 Perfor med at: HD - (test code = ISOALKIT) [facility] [place], [place] [id number] b Director: Chico Suero MD, Phone: [phone] [facility] at: [facility] [id number] Di aimee: Chester ramírez MD, Phone: [phone] Nyadgmhvr9701-36-84 11:48:00 Test Item Value Reference Range Interpretation [...] code = ALT) 92 U/L 8-55 H [id number] 06:08:00 Test Item Value Reference Range Interpretation [...] 8.5 mg/dL 7.8-10.44 N code = CA) Ifxclplvw2227-79-54 06:06:00 Test Item Value Reference Range Interpretation [...] code = ALT) 129 U/L 8-55 H Ycmroxcvop9299-01-12 05:57:00 Test Item Value Reference Range Interpretation [...] code = BASO#) 0.0 thou/uL 0.0-0.2 N [id number] 05:55:00 Test Item Value Reference Range Interpretation [...] - 4. 0 CRITICAL: > 4.0 Anticoagulant? HQUTDvuzxhoeg7309-35-02 05:36:00 Test Item Value Reference Range Interpretation [...] 8.9 mg/dL 7.8-10.44 N code = CA) Ouqxwuchq7037-49-76 05:33:00 Test Item Value Reference Range Interpretation [...] code = ALT) 160 U/L 8-55 H Sxohomahzg3510-56-13 05:28:00 Test Item Value Reference Range Interpretation [...] 0.1 thou/uL 0.0-0.2 N Chemistry - Elizabeth [id number] 13:02:00 Test Item Value Reference Range Interpretation [...] hod: Enzyme Linked Fluorescent Immunoassay (Elizabeth)Reference s: ActBlue AB Elizabeth Package Inserts - Directions Vasile maria, June,August 02, [employer] ic. Ujgaydtde9670-19-79 05:00:00 Test Item Value Reference Range Interpretation [...] code = ALT) 144 U/L 8-55 H Ngkqbeqkq3684-38-18 04:50:00 Test Item Value Reference Range Interpretation [...] 8.4 mg/dL 7.8-10.44 N code = CA) Woumvnocoz8790-76-63 04:39:00 Test Item Value Reference Range Interpretation [...] code = BASO#) 0.0 thou/uL 0.0-0.2 N Tmoywwbqq8771-35-32 17:07:00 Test Item Value Reference Range Interpretation Comments Chemistry (test code = IGG) 1032.00 mg/dL 552-1631 N Tkiglhldv4250-44-49 17:07:00 Test Item Value Reference Range Interpretation Comments Chemistry (test code = IGM) 215.00 mg/dL 33-293 N Hddkmraqvn0483-59-84 00:50:00 Test Item Value Reference Range Interpretation [...] UABLD) Urine Source: Urine Clean CatchChemistry - Hnnzmgeg5349-80-62 00:25:00 Test Item Value Reference Range Interpretation Comments Chemistry - Specials (test Non-Reactive NonReactive code = THEPAIGM) Chemistry - Specials (test Non-Reactive S/CO NonReactive code = THBSAG) Chemistry - Specials (test Non-Reactive NonReactive code = INTHBCM) Chemistry - Specials (test Non-Reactive NonReactive code = INTHEPC) [id number] 22:12:00 Test Item Value Reference Range Interpretation [...] code 196 U/L 8-55 H = ALT) [id number] 22:12:00 Test Item Value Reference Range Interpretation Comments Chemistry (test code = LIP) 22 U/L 8-78 N Xsatoifbqa4994-02-03 21:50:00 Test Item Value Reference Range Interpretation [...] code = BASO#) 0.1 thou/uL 0.0-0.2 N Agqnjbysj0469-19-80 22:49:00 Test Item Value Reference Range Interpretation [...] 78 U/L 8-55 H code = ALT) Nykmoegav9569-39-21 22:49:00 Test Item Value Reference Range Interpretation Comments Chemistry (test code = LIP) 12 U/L 8-78 N Kgarwmilaj5370-24-57 22:24:00 Test Item Value Reference Range Interpretation [...] code = BASO#) 0.0 thou/uL 0.0-0.2 N Guakvdxyhm8087-64-10 22:00:00 Test Item Value Reference Range Interpretation [...] UABLD) Negative Negative Urine Source: Urine Clean WquphEbftxesi9245-94-09 09:28:00 Test Item Value Reference Range Interpretation Comments Accuchek (test code = ACU) 99 mg/dL 70-110 N Ahldlcfusa4552-99-72 09:14:00 Test Item Value Reference Range Interpretation [...] UABLD) Negative Negative Urine Source: Urine Clean WqmhyKduvivzvxm1887-37-24 21:28:00 Test Item Value Reference Range Interpretation [...] UABLD) Negative Negative Urine Source: Urine Clean AkvmrSreovomke0146-15-33 21:09:00 Test Item Value Reference Range Interpretation [...] 95 U/L 8-55 H code = ALT) Cjxmliivy2903-13-34 21:09:00 Test Item Value Reference Range Interpretation Comments Chemistry (test code = LIP) 39 U/L 8-78 N Xihwykmppy0123-17-04 20:49:00 Test Item Value Reference Range Interpretation [...] code = BASO#) 0.0 thou/uL 0.0-0.2 N [id number] 21:34:00 Test Item Value Reference Range Interpretation [...] desired. Presu mptive positive urines are held [facility]. Urine Source: Urine Clean RncdrWaxgtmypzi2746-11-44 19:17:00 Test Item Value Reference Range Interpretation [...] = UABLD) Negative Negative Urine Source: Urine [id number] 18:48:00 Test Item Value Reference Range Interpretation [...] code 84 U/L 8-55 H = ALT) Uvsyxjevm1766-56-72 18:48:00 Test Item Value Reference Range Interpretation Comments Chemistry (test code = JORGE) 53.0 U/L 25-125 N Taejwcfky4787-63-73 18:48:00 Test Item Value Reference Range Interpretation Comments Chemistry (test code = LIP) 10 U/L 8-78 N Tjyoglvxup0426-80-45 18:19:00 Test Item Value Reference Range Interpretation [...] = BASO#) 0.1 thou/uL 0.0-0.2 N Culture, Zwdug0802-35-19 10:22:00 Test Item Value Reference Range Interpretation Comments Culture, Urine (test code = URC) NF N Culture, Urine (test code = URC1) 10 MSF N [id number] 17:38:00 Test Item Value Reference Range Interpretation Comments Chemistry (test code = PHOS) 2.9 mg/dL 2.3-4.7 N Udabvyqjj1564-20-64 17:04:00 Test Item Value Reference Range Interpretation [...] H = ALT) Chemistry - BNP, HgbA1c, RYJe1513-05-84 17:04:00 Test Item Value Reference Range Interpretation Comments Chemistry - BNP, 4.9 % 4.0-6.0 N Therapeutic goals for glycemic HgbA1c, PTHi (test control ( ADA)Adults:- Goal of code = XCEB1LV) therapy: Les s than 7.0% HbA1c- Action suggeste d: Greater than 8.0% UlU9qTkrvd tric patients:- Toddlers and pr eschoolers: Less than 8.5% (but Greater than 7.5%)- Katelynn ool age (6-12 years): Less th an 8%- Adolescents and young adults (13-19 years): Less than 7.5%Diagnosing diabetes (ADA)- HbA1c: Greater than or equal to 6.5% Values of 5.7 - 6.4% indicate HIGH risk for developing DiabetesInterna onal Expert Committee Repor t on the Role of the E2LZpabx in the Diagnosis of Di abetes. Diabetes Care 2009July;32(7): 1327-1334ADA, Diagnosis cla ssification of diabetes carlitos patiño.Diabetes Care 2010; 33 S uppl 1:S62 Olzzlljpg1225-85-09 16:59:00 Test Item Value Reference Range Interpretation Comments Chemistry (test code = CRP) 1.16 mg/dL = or < 0.5 H What test does the doctor want? C-REACTIVE PROTEIN (CRP)Gvwlfjdygf0914-64-93 16:53:00 Test Item Value Reference Range Interpretation [...] HPF None Seen Urine Source: Urine Clean AujsmEptwdevocp4865-21-38 16:46:00 Test Item Value Reference Range Interpretation [...] code = BASO#) 0.1 thou/uL 0.0-0.2 N Ngikarckbj1093-85-33 21:59:00 Test Item Value Reference Range Interpretation [...] Urine Clean CatchSepsis - Lactic Acid >2 [id number] 23:59:00 Test Item Value Reference Range Interpretation Comments Sepsis - Lactic Additional Lactate testin g will be Acid >2 Rflx performed in 3 hrs (test code = according to [facility] IMBIV4P) SepsisProtocol. Yagcucrit2813-10-61 21:12:00 Test Item Value Reference Range Interpretation Comments Chemistry (test code = JORGE) 59.0 U/L 25-125 N Icsqsotvz9553-28-41 20:59:00 Test Item Value Reference Range Interpretation [...] 87 U/L 8-55 H code = ALT) Bcuijlepx9721-40-21 20:59:00 Test Item Value Reference Range Interpretation Comments Chemistry (test code = LIP) 32 U/L 8-78 N Chemistry - [id number] 20:59:00 Test Item Value Reference Range Interpretation Comments Chemistry - Lactate (test code = 2.1 mmol/L 0.5-2.2 N LACTSEP-T) Swrdbejkcn2094-79-85 20:43:00 Test Item Value Reference Range Interpretation [...] = UABLD) Negative Negative Urine Source: Urine QomdrsIrhmbokimy5994-16-02 20:37:00 Test Item Value Reference Range Interpretation [...]
--- OUTSIDE RECORDS SUMMARY | 2020-03-23 21:20 | XMS REPORT ---
:1960 Author Organization [facility] Address [address] [place], [place] [address] [place] [address] Care Team Providers Name Role Phone Jeannie Slade Unavailable [phone] PROBLEMS Type Condition ICD9-CM [id number] Onset Condition SNOMED Code Notes Code Code Dates Status Problem Moderately severe F32.2 Active 193847718 depression Problem Anxiety F41.9 Active 13137330 Problem Essential I10 Active 49992520 hypertension Problem Iron deficiency D50.9 Active 66521908 anemia, unspecified iron deficiency anemia type Problem Grieving F43.21 Active 43072439 Problem PUD (peptic ulcer K27.9 Active 68907157 disease) Problem Osteoarthritis M15.9 Active 874565559 involving multiple joints on both sides of body Problem Gastroesophageal K21.9 Active 447471266 reflux disease without esophagitis Problem Primary insomnia F51.01 Active 3421227 Problem Chronic K86.1 Active 603707133 pancreatitis, unspecified pancreatitis type Problem Seasonal allergies J30.2 Active 500885196 ALLERGIES No Known Allergies ENCOUNTERS from 1960 to 2020-01-10 Encounter Location Date Provider Diagnosis [facility] [address] [facility] Dec, Jeannie Frederick entijarod hypertension [facility] [address], [place] ; [place] ([place] [address] disease) K27.9 ; Moderately radha re depression F32. 2 ; Chronic pancrea titis, unspecified enamorado creatitis type K86.1 ; Gastroesophagea l reflux disease without esophagitis K21 .9 ; Anxiety F41.9 a nd Elevated liver enzymes R74.8 IMMUNIZATIONS No Information SOCIAL HISTORY Tobacco Use: Social History Observation Description Date Details (start date - stop date) Never Smoker Sex Assigned At : Social History Observation Description Sex Assigned At Unknown PHQ9 Question Answer Notes Little interest or pleasure in doing things Not at all Feeling down, depressed, or hopeless Nearly every day Trouble falling or staying asleep or sleeping too Nearly alex ry day much Feeling tired or having little energy Nearly every day Poor appetite or overeating Nearly every day Feeling bad about yourself, or that you are a Not at all failure, or have let yourself or your family down Trouble concentrating on things, such as reading Nearly ever y day the newspaper or watching television Moving or speaking so slowly that other people Not at all could have noticed; or the opposite, being so fidgety or restless that you have been moving around a lot more than usual Total Score 15 Interpretation Moderately severe depression Thoughts that you would be better off or of Not at all hurting yourself in some way Tobacco Use/Smoking Question Answer Notes Are you a never smoker REASON FOR REFERRAL No Information VITAL SIGNS No information MEDICATIONS Medication SIG (Take, Route, Start Date End Date Status Frequency, Duration) Sucralfate 1 GM 1 tablet on an empty Dec, Jan, Acti ve stomach Orally three times a day and bedtime for 30 day(s) PredniSONE 10 MG 2 tablet daily x 5 days Not-Taking then one tablet daily x 5 days Orally Once a day for 10 days Doxycycline Hyclate 100 1 capsule Orally twice Not-Taking MG a day for 7 day(s) Azithromycin 250 MG 2 tablets on the first Not-Taking day, then 1 tablet daily for 4 days Orally Once a day for 5 day(s) Phenergan 25mg one tablet Po Q 12 Not-Link ing hours for 30 days Seroquel XR 300 MG 1 tablet in the evening Active Orally Once a day for 90 days Flonase 50 MCG/ACT 2 spray in each nostril Active Nasally Once a day for 30 day(s) Diazepam 5 MG 1 tablet as needed Active Orally Once a day prn panic attacks for 10 days Gabapentin 300 MG 1 capsule Orally Once a Active day for 90 days Lexapro 20 MG 1 tablet Orally Once a Acti ve day for 90 days Robaxin-750 750 MG 1 tablet Orally every 4 Active hrs Losartan Potassium 100 MG 1 tablet Orally Once a Active day for 90 days Losartan Potassium 100 MG TAKE 1 TABLET BY MOUTH Active EVERY DAY for 90 PROCEDURES No Information RESULTS No Results REASON FOR VISIT 3 [facility] f/u. [phone]., hospital f/u stomach ulcers gerd, depression anxiety MEDICAL (GENERAL) HISTORY Type Description Date Medical History Depression, unspecified depression type Medical History Anxiety Medical History Gastroesophageal reflux disease, esophag itis presence not specified Medical History Hypertension, unspecified type Medical History Obesity, unspecified classification, uns pecified obesity type, unspecified whether seriou s comorbidity present Medical History Other chronic pain Medical History Peripheral polyneuropathy Medical History Scoliosis, unspecified scoliosis type, u nspecified spinal region Medical History Anemia, unspecified type Medical History History of fatty infiltration of liver Medical History Abnormal serum enzyme level Medical History History of insomnia Medical History Chronic pancreatitis, unspecified pancre atitis type Surgical History R Knee Surgery 2013 Hospitalization History Hyperkalemia 07/2018 Goals Section No Information Health Concerns No Information MEDICAL EQUIPMENT No Information MENTAL STATUS No Information FUNCTIONAL STATUS No Information ASSESSMENTS Encounter Date Diagnosis Notes Dec, Moderately severe depression (ICD-10 - F 32.2) Dec, PUD (peptic ulcer disease) (ICD-10 - K27 .9) Dec, Gastroesophageal reflux disease without esophagitis (ICD-10 - K21.9) Dec, Chronic pancreatitis, unspecified pancre atitis type (ICD-10 - K86.1) Dec, Essential hypertension (ICD-10 - I10) Dec, Elevated liver enzymes (ICD-10 - R74.8) Dec, Anxiety (ICD-10 - F41.9) PLAN OF TREATMENT Medication Medication Name Sig Start Date Stop Date Lexapro 20 MG 1 tablet Orally Once a day for 90 days Losartan Potassium 100 MG 1 tablet Orally Once a day for 90 days Seroquel XR 300 MG 1 tablet in the evening Orally Once a day for 90 days Sucralfate 1 GM 1 tablet on an empty stomach Dec, Jan, Orally three times a day and bedtime for 30 day(s) Gabapentin 300 MG 1 capsule Orally Once a day for 90 days Treatment Notes Assessment Notes Clinical Notes Essential hypertension -- Elevated - out of meds, advised if out of meds to call pharmacy with refill request or call clinic for refill. Maintian a low salt DASH diet, exercise, weight loss and decrease stress recommended. Keep BP log and will review next visit. If blood pressure consistently above 140/90 return to clinic for adjustment of meds. Try to quit smoking if you currently smoke. Decrease caffeine intake if possible. - - advised to avoid phenylephrine and pseudoephedrine in otc sinus/cold meds containing these decongestants which work by vasoconstricting blood vessels to help decrease congestion however may cause your BP to rise. -- If you have a cold may take Coricidin brand of cold medicines safe for high blood pressure patients. Moderately severe depression continue current meds daily. Avoid caffeine. Make sure to exercise daily, take deep breaths, meditate, take frequent breaks. Take yourself away from the situation causing anxiety and stress by going for a 10-15 minute walk.-- advised need to take medication and if need to get off meds always ask health care provider first and always need to taper off to prevent withdrawl symptoms including Chronic pancreatitis, maintain low fat diet, avoid unspecified pancreatitis type alcohol. avoid meds that are prone to causing pancreatitis. continue f/u with GI. Gastroesophageal reflux Gerd- avoid trigger foods disease without esophagitis including spicy, oily, carbonated drinks, citrus. Do not lay down immediately after eating-wait at least 2 hours, elevate pillow. Eat smaller meals and weight loss recommended for obese patients. Avoid wearing tight clothing. Anxiety advised will only rx diazepam temporary 30 tabs to use as needed only for panic/ anxiety attacks until patient able to get in with a new psychiatrist since moving back to [place]. advised I will not prescribe this custodial for patient and will need to see specialist for refills and adjustment of psych meds. pt verbalized understanding. Elevated liver enzymes lifestyle modific ations recommended to lower liver enzymes which are re leased when there is damage to your liver cells. Ma intain a low fat diet, exer cise and weight loss. markos l monitor liver enzymes.-Avoid meds that may injure liver inc luding tylenol ( Acetaminop hen) and alcohol.-- Try o tc vitamins milk thisle and berberine which may help with liver health to cleanse and repair t he liver Treatment Notes Test Name Order Date Vitamin B12 and Folate 2020-01-10 Lipid Panel w/ Chol/HDL Ratio 2020-01-10 Hemoglobin A1c 2020-01-10 Comp. Metabolic Panel (14) (CMP) 2020-01-10 CBC With Differential/Platelet 2020-01-10 TSH reflex to T4F 2020-01-10 Next Appt Details 4 Weeks Reason: Insurance Providers Payer Name Payer Address Payer Insured Patient Coverage Cover age Phone Name Relationship to Start Date End Date Insured [employer] [address] [phone] Tara Aleman [id number] [place] [address] nja [id number] MEDICARE Attn Part B [id number] Tara Aleman self 2016 [employer] Claims [address] [facility] [address]
--- OUTSIDE RECORDS SUMMARY | 2020-03-23 21:21 | XMS REPORT ---
:1960 Author Organization [facility] Address [address] [place], [facility] [address] [place] [id number] Care Team Providers Name Role Phone Slade, Jeannie Unavailable [phone] PROBLEMS Type Condition ICD9-CM [id number] Onset Condition SNOMED Code Notes Code Code Dates Status Problem Moderately severe F32.2 Active 286474475 depression Problem Anxiety F41.9 Active 59488775 Problem Essential I10 Active 86769956 hypertension Problem Iron deficiency D50.9 Active 26398606 anemia, unspecified iron deficiency anemia type Problem Grieving F43.21 Active 00293600 Problem PUD (peptic ulcer K27.9 Active 53540487 disease) Problem Osteoarthritis M15.9 Active 560355344 involving multiple joints on both sides of body Problem Gastroesophageal K21.9 Active 087066416 reflux disease without esophagitis Problem Primary insomnia F51.01 Active 0063177 Problem Chronic K86.1 Active 957276795 pancreatitis, unspecified pancreatitis type Problem Seasonal allergies J30.2 Active 572181371 ALLERGIES No Known Allergies ENCOUNTERS from 1960 to 2020-01-11 Encounter Location Date Provider [facility] [address] Dec, Jeannie Slade PUD (peptic ulcer [facility] [place] disease) K27.9 [id number] IMMUNIZATIONS No Information SOCIAL HISTORY Tobacco Use: [...] staying asleep or sleeping too Nearly alex day much Feeling tired or having little [...] Start Date End Date Status Frequency, Duration) Lexapro 20 MG 1 tablet Orally Once a Acti ve day for 90 days Azithromycin 250 MG 2 tablets on the first Not-Taking day, then 1 tablet daily for 4 days Orally Once a day for 5 day(s) Doxycycline Hyclate 100 MG 1 capsule Orally twice a Not-Taking day for 7 day(s) Sucralfate 1 GM 1 tablet on an empty Dec, Acti ve stomach Orally three times a day and bedtime for 30 day(s) Phenergan 25mg one tablet Po Q 12 hours N ot-Taking for 30 days Seroquel XR 300 MG 1 tablet in the evening Active Orally Once a day for 90 days Flonase 50 MCG/ACT 2 spray in each nostril Active Nasally Once a day for 30 day(s) PredniSONE 10 MG 2 tablet daily x 5 days Not-Taking then one tablet daily x 5 days Orally Once a day for 10 days Gabapentin 300 MG 1 capsule Orally Once a Active day for 90 days Losartan Potassium 100 MG TAKE 1 TABLET BY MOUTH Active EVERY DAY for 90 Robaxin-750 750 MG 1 tablet Orally every 4 Active hrs Losartan Potassium 100 MG 1 tablet Orally Once a Active day for 90 days Diazepam 5 MG 1 tablet as needed Orally A ctive Once a day prn panic attacks for 10 days PROCEDURES No Information RESULTS No Results REASON FOR VISIT med resend MEDICAL (GENERAL) HISTORY Type Description Date Medical [...] Information ASSESSMENTS Encounter Date Diagnosis Notes Dec, PUD (peptic ulcer disease) (ICD-10 - K27 .9) PLAN OF TREATMENT Medication Medication Name Sig Start Date Stop Date Sucralfate 1 GM 1 tablet on an empty stomach Orally Dec, three times a day and bedtime for 30 day(s) Losartan Potassium 100 MG 1 tablet Orally Once a day for 90 days Seroquel XR 300 MG 1 tablet in the evening Orally Once a day for 90 days Lexapro 20 MG 1 tablet Orally Once a day for 90 days Gabapentin 300 MG 1 capsule Orally Once a day for 90 days Insurance Providers Payer Name Payer Address Payer Insured Patient Coverage Cover age Phone Name Relationship to Start Date End Date Insured [employer] [address] [phone] Tara Aleman [id number] [facility] [address] nja [id number] [id number] MEDICARE Attn Part B [id number] Tara Aleman self 2016 [facility] Claims [address] [facility] [address]
--- OUTSIDE RECORDS SUMMARY | 2020-03-23 21:22 | XMS REPORT ---
:[address] [facility] Address [address] [place], [facility] [address] [place] [address] Care Team Providers Name Role Phone Yany Jeannie Unavailable [phone] PROBLEMS Type Condition ICD9-CM [id number] Onset Condition SNOMED Code Notes Code Code Dates Status Problem Moderately severe F32.2 Active 382862798 depression Problem Anxiety F41.9 Active 45981430 Problem Essential I10 Active 52331412 hypertension Problem Iron deficiency D50.9 Active 83084022 anemia, unspecified iron deficiency anemia type Problem Grieving F43.21 Active 47459720 Problem PUD (peptic ulcer K27.9 Active 43398401 disease) Problem Osteoarthritis M15.9 Active 189661378 involving multiple joints on both sides of body Problem Gastroesophageal K21.9 Active 157422038 reflux disease without esophagitis Problem Primary insomnia F51.01 Active 2855178 Problem Chronic K86.1 Active 596812836 pancreatitis, unspecified pancreatitis type Problem Seasonal allergies J30.2 Active 933500969 ALLERGIES No Known Allergies ENCOUNTERS from 1960 to 2020-03-07 Encounter Location Date Provider Diagnosis [facility] [address] [facility] [address] [place] [address] Feb, 2020 [place] [address] IMMUNIZATIONS No Information SOCIAL HISTORY Tobacco Use: [...] No information MEDICATIONS Medication SIG (Take, Route, Notes Start Date End Date Status Frequency, Duration) Diazepam 5 MG 1 tablet as needed Act kourtney Orally Once a day prn panic attacks for 10 days Azithromycin 250 MG 2 tablets on the Not-Taking first day, then 1 tablet daily for 4 days Orally Once a day for 5 day(s) Losartan Potassium 100 1 tablet Orally Once a Active MG day for 90 days Doxycycline Hyclate 100 1 capsule Orally twice Not-Taking MG a day for 7 day(s) Phenergan 25mg one tablet Po Q 12 No t-Taking hours for 30 days Losartan Potassium 100 TAKE 1 TABLET BY MOUTH Active MG EVERY DAY for 90 Lexapro 20 MG 1 tablet Orally Once a Active day for 90 days Seroquel XR 300 MG 1 tablet in the A ctive evening Orally Once a day for 90 days Robaxin-750 750 MG 1 tablet Orally every Active 4 hrs Gabapentin 300 MG 1 capsule Orally Once Active a day for 90 days Flonase 50 MCG/ACT 2 spray in each A ctive nostril Nasally Once a day for 30 day(s) Sucralfate 1 GM 1 tablet on an empty Dec, Active stomach Orally three times a day and bedtime for 30 day(s) PredniSONE 10 MG 2 tablet daily x 5 Not-Taking days then one tablet daily x 5 days Orally Once a day for 10 days PROCEDURES No Information RESULTS No Results REASON FOR VISIT Needs Hospital F/u MEDICAL (GENERAL) HISTORY Type Description Date Medical [...] No Information FUNCTIONAL STATUS No Information ASSESSMENTS No Information PLAN OF TREATMENT Medication Medication Name Sig Start Date Stop Date Losartan Potassium 100 MG 1 tablet Orally [...] Orally Once a day for 90 days Next Appt Details Provider Name:Jeannie Slade, 2020-03-08 01:2 0:00 PM, [address] [place], [address], [place], [address], Insurance Providers Payer Name Payer Address Payer Insured Patient Coverage Cover age Phone Name Relationship to Start Date End Date Insured [employer] [address] [phone] Tara Aleman [id number] [facility] 224 nja [id number] [id number] MEDICARE Attn Part B [id number] Tara Aleman self 2016 [employer] Claims [address]ja [address] [facility] [address]
--- OUTSIDE RECORDS SUMMARY | 2020-03-23 21:22 | XMS REPORT | Summary of Care ---
:1960 Author Organization [facility] Address [address] [place] [id number] Care Team Providers Name Role Phone Guerline Slade Primary Care Provider Reason for Referral Other (Routine) Status Reason Specialty Diagnoses / Referred By Referred To Procedures Contact Contact Closed Patient is Neurology Diagnoses Toxic metabolic encephalopathy Teq[place]imuah, Syst, Established with a Procedures Discharge Follow-up: Specialty Provider REFERRING/PCP PROV NOT IN SYST (Private Neurologist); 1 Week Segundo, DO Referring/Pcp Specific Provider [address] [place] [address] MRI/CAT Scan (Routine) Status Reason Specialty Diagnoses / Referred By Referred To Procedures Contact Contact New Request Diagnostic Diagnoses Cerebrovascular accident (CVA) due to embolism of basilar artery Alberto, Radiology Procedures MR BRAIN WO CONTRAST Monet Campa MD [address] [place] [address] MRI/CAT Scan (Routine) Status Reason Specialty Diagnoses / Referred By Referred To Procedures Contact Contact New Request Diagnostic Diagnoses Altered mental status, unspecified altered mental status type Somnolence Get Aguillon, INDUSTRIAL ORDER CLERK Radiology Procedures MR CERVICAL SPINE WO CONTRAST [address] [facility] [[email or web address] [place] [address] ([place]) Status Reason Specialty Diagnoses / Referred By Referred To Procedures Contact Contact New Request Vascular Procedures Alex Mcknight, Sonography RENAL ARTERY DUPLEX BY [address] [place] [address] VASCULAR LAB [facility]. [address] [id number] Radiology Services (Routine) Status Reason Specialty Diagnoses / Referred By Referred To Procedures Contact Contact New Request Diagnostic Diagnoses Acute kidney injury Chronic pancreatitis, unspecified pancreatitis type Elevated liver enzymes Acute cystitis without hematuria Betsy Kenyon, Radiology Procedures US ABDOMEN COMPLETE [address] [place] [address]. [place] [address] MRI/CAT Scan (STAT) Status Reason Specialty Diagnoses / Referred By Referred To Procedures Contact Contact New Request Diagnostic Diagnoses Altered mental status, unspecified altered mental status type Ron, Kirstin, Radiology Procedures CT Head W/O Contrast INDUSTRIAL ORDER CLERK[address] [address] Radiology Services (STAT) Status Reason Specialty Diagnoses / Referred By Referred To Procedures Contact Contact New Request Diagnostic Diagnoses Altered mental status, unspecified altered mental status type Ron, Kirstin, Radiology Procedures Abdomen 1 View INDUSTRIAL ORDER CLERK[address] [address] Radiology Services (STAT) Status Reason Specialty Diagnoses / Referred By Referred To Procedures Contact Contact New Request Diagnostic Diagnoses Altered mental status, unspecified altered mental status type Ron, Kirstin, Radiology Procedures Chest 1 View INDUSTRIAL ORDER CLERK[address] [address] Reason for Visit Reason Comments Altered mental status Auth/Cert Status Reason Specialty Diagnoses / Referred By Referred To Procedures Contact Contact Emergency Medicine [facility] ergency Dept [address] [place] [address] Fax: Encounter Details Date Type Department Care Team Description 01/31/2020 - [facility] Farshad Ramirez MD [address] [place] [address] [address] [place], [place] [address] Toxic metabolic 02/08/2020 Encounter Medicine/Surgery Kirstin Ron, INDUSTRIAL ORDER CLERK [address] [place] [id number] encephalopathy CLC 4B Pasha Hinojosa MD [address] [place] [id number] Katheryn Retana MD [address] [place], [place] [address] [place] Kobi Mcdermott MD [address] [place], [place] [phone] Allergies Active Allergy Reactions Severity Noted Date Comments Codeine Itching, Rash High 02/11/2013 documented as of this encounter (statuses as of 02/08/2020) Medications Medication Sig Dispensed Refills Start End Status Date Date LOSARTAN POTASSIUM Take 100 mg by 0 Active (LOSARTAN ORAL) mouth daily. gabapentin Take 300 mg by 0 Acti ve (NEURONTIN) 300 mg mouth 3 (three) capsule times daily. QUEtiapine Take 400 mg by 0 Acti ve (SEROQUEL) 400 mg mouth at tablet bedtime. escitalopram oxalate Take 20 mg by 0 Active (LEXAPRO) 20 mg mouth at tablet bedtime. divalproex Take 500 mg by 0 Acti ve (DEPAKOTE) 500 mg EC mouth daily. tablet tiZANidine 4 mg Take 4 mg by 0 A ctive capsule mouth 2 (two) times daily. CREON Take by mouth 0 10/24/19 Activ e 36,000-114,000- 3 (three) times 19 180,000 unit CpDR daily with meals. pantoprazole 40 mg Take 1 tablet 60 tablet 0 11/18/19 Active EC by mouth 2 19 tabletIndications: (two) times Gastroesophageal daily. reflux disease, esophagitis presence not specified proMETHazine 25 mg Take 1 tablet 28 tablet 0 11/18/19 Active tabletIndications: by mouth every 19 Acute on chronic 6 (six) hours pancreatitis as needed for N/V alternating with Ondansetron. HYDROcodone-acetamin Take 1 tablet 20 tablet 0 11/18/19 Active ophen 7.5-325 mg per by mouth every 19 tabletIndications: 6 (six) hours Acute on chronic as needed (Pain pancreatitis scal 7-10). chlordiazePOXIDE 10 Take 10 mg by 0 Active mg capsule mouth 3 (three) times daily. meloxicam 7.5 mg Take 7.5 mg by 0 Active tablet mouth daily. losartan 100 mg Take 1 tablet 30 tablet 0 01/06/20 Active tabletIndications: by mouth daily. 19 Essential hypertension ondansetron 4 mg Take 1 tablet 20 tablet 0 05/19/19 Active disintegrating by mouth every 20 tabletIndications: 8 (eight) hours Epigastric pain as needed for Nausea and Vomiting (N/V). benzonatate 200 mg Take 1 capsule 21 capsule 0 08/21/19 Active capsuleIndications: by mouth 3 20 Acute bronchitis, (three) times unspecified organism daily as needed for Cough. ondansetron (ZOFRAN) Take 1 tablet 12 tablet 0 08/21/19 Active 4 mg by mouth every 20 tabletIndications: 8 (eight) hours Acute bronchitis, as needed for unspecified organism Nausea and Vomiting (N/V). traMADol (ULTRAM) 50 Take 1 tablet 20 tablet 0 08/21/19 Active mg by mouth every 20 tabletIndications: 6 (six) hours Acute bronchitis, as needed for unspecified organism Pain (scale 7-10). albuterol 90 Inhale 2 Puffs 8.5 g 0 08/21/19 Ac tive mcg/actuation every 4 (four) 20 inhalerIndications: hours as needed Acute bronchitis, for Wheezing, unspecified organism Shortness of Breath, Bronchospasm or Chest tightness. proMETHazine Insert 1 16 Suppository 0 12/18/19 Ac tive (PHENERGAN) 25 mg Suppository 20 suppositoryIndicatio into rectum ns: Cyclical every 4 (four) vomiting syndrome hours as needed for Nausea and Vomiting (N/V). lithium carbonate Take 300 mg by 0 Active 300 mg capsule mouth 2 (two) times daily. temazepam 15 mg Take 15 mg by 0 Active capsule mouth at bedtime as needed for Insomnia. ursodioL 500 mg Take 500 mg by 0 Active tablet mouth 2 (two) times daily. amLODIPine 10 mg Take 1 tablet 30 tablet 0 02/08/20 Active tabletIndications: by mouth daily. 20 Toxic metabolic encephalopathy hydrALAZINE 50 mg Take 1 tablet 60 tablet 0 02/08/20 Active tabletIndications: by mouth every 20 Toxic metabolic 8 (eight) encephalopathy hours. aspirin 81 mg Take 1 tablet 30 tablet 0 02/08/20 Ac tive chewable by mouth daily. 20 tabletIndications: Toxic metabolic encephalopathy traMADol 50 mg 1 by mouth 40 tablet 0 12/06/19 Disc ontinued tabletIndications: every 4-6 hours 19 020 Closed fracture of as needed for right ankle, initial pain encounter ondansetron 4 mg Take 1 tablet 20 tablet 0 02/08/20 Discontinued tabletIndications: by mouth every 020 Closed fracture of 8 (eight) hours distal end of right as needed for tibia with routine Nausea and healing, unspecified Vomiting (N/V). fracture morphology, subsequent encounter traMADol 100 mg 24 Take 1 tablet 15 tablet 0 05/19/19 Discontinued hr by mouth daily. 20 020 tabletIndications: Epigastric pain ondansetron 4 mg Take 2 tablets 20 tablet 0 06/19/19 Discontinued disintegrating by mouth every 020 tabletIndications: 8 (eight) hours Non-intractable as needed for vomiting with Nausea and nausea, unspecified Vomiting (N/V). vomiting type Nitrofurantoin&Nit. Take 1 capsule 14 capsule 0 08/21/1901/14 Discontinued Macrocryst by mouth 2 020 (MACROBID) 100 mg (two) times capsuleIndications: daily. Acute cystitis without hematuria documented as of this encounter (statuses as of 02/08/2020) Active Problems Problem Noted Date Cerebrovascular accident (CVA) due to embolism of basi lar artery 02/04/2020 Arthritis 02/03/2020 Toxic metabolic encephalopathy 02/02/2020 Altered mental status 01/31/2020 Abdominal pain 11/15/2018 Peripheral nerve disease 10/22/2018 [...] as of this encounter (statuses as of 02/08/2020) Immunizations Name Administration Dates Next Due Influenza Virus Vaccine 02/27/2013 documented as of this encounter Social History Tobacco Use Types Packs/Day Years [...] last month, have you been in contact Unable to assess 01/31/2020 10:40 AM CDT with someone who was confirmed or suspected to have Coronavirus / COVID-19? documented as of this encounter Last Filed Vital Signs Vital Sign Reading Time Taken Comments Blood Pressure 134/94 02/08/2020 3:21 PM CDT Pulse 76 02/08/2020 3:21 PM CDT Temperature 36.1 C (97 F) 02/08/2020 3:21 PM CDT Respiratory Rate 17 02/08/2020 3:21 PM CDT Oxygen Saturation 100% 02/08/2020 3:21 PM CDT Inhaled Oxygen Concentration - - Weight 80.5 kg (177 lb 6.4 oz) 02/03/2020 3:16 AM CDT Height - - Body Mass Index 34.65 12/18/2019 3:24 PM CDT documented in this encounter Discharge Summaries Segundo Gibbons DO - 02/08/2020 9:45 AM CDT CLS Team Discharge Summary Date of Service: 02/08/2020 ADMIT DATE: 01/31/2020 DISCHARGE DATE: 02/08/2020 ATTENDING MD: Segundo Gibbons DO PCP: Jeannie Slade REASON FOR ADMISSION Toxic metabolic encephalopathy FINAL DIAGNOSIS: Metabolic encephalopathy from polypharmacy Principal Problem: Toxic metabolic encephalopathy (02/02/2020) POA: Yes Active Problems: Obesity (BMI 30-39.9) (03/01/2016) POA: Yes Alcohol use (02/20/2013) POA: Yes Essential hypertension (02/20/2013) POA: Yes Altered mental status (01/31/2020) POA: Yes Cerebrovascular accident (CVA) due to embolism of basilar artery (02/04/2020) POA: Unknown Resolved Problems: * No resolved hospital problems. * Orders Placed This Encounter CONSULT NEPHROLOGY CONSULT GASTROENTEROLOGY Consult Adult Physical Therapy CONSULT NEPHROLOGY CONSULT INFECTIOUS DISEASE CONSULT ADULT PHYSICAL THERAPY CONSULT NEUROLOGY CONSULT ADULT OCCUPATIONAL THERAPY CONSULT ADULT PHYSICAL THERAPY No orders of the defined types were placed in this encounter. SIGNIFICANT LAB/X-RAYS: Lab results: No results found for this or any previous visit (from the past 24 hour(s)). X-ray results: Abdomen 1 View Result Date: 01/31/2020 1. Nonobstructive intestinal bowel gas pattern. RL: 2601 AFC: [id number] Chest 1 View Result Date: 01/31/2020 Impression: No acute cardiopulmonary disease. RL: 2601 AFC: [id number] Ct Head W/o Contrast Result Date: 01/31/2020 Impression: 1. No acute intracranial process. 2. Small right mastoid effusion. Mr Cervical Spine Wo Contrast Result Date: 02/05/2020 Mild degenerative changes most pronounced at C5-C6 and C6-C7 as above. RL: 460 AFC: [id number] Us Abdomen Complete Result Date: 02/01/2020 No sonographic findings to explain patient's transaminitis. Status post cholecystectomy. Normal sonographic appearance of bilateral kidneys. No appreciable atrophy or cortical thinning. No hydronephrosis. HOSPITAL COURSE: Yessenia Aleman is a 59 year old female with past medical history significant for chronic pancreatitis,Hypertension,Peptic ulcer disease,Biliary cirrhosis/ stenosis, status post biliary stent placement and Revision, Chronic pain syndrome [facility] [place] [facility] with c onfusion and weakness, was transferred to [facility] for neurologic evaluation. Patient was seen by neurologist, cervical spine MRI was unremarkable, patient is going for brain MRI this morning. Patient has been doing fairly well for the past couple of days, mentation seems to be back to baseline, ambulating well with no focal weakness. Patient seems to be dealing with polypharmacy, patient is requesting to return to the detox center. If cleared by groundskeeper patient can be discharged back [facility] for outpatient follow-up. Patient has been counseled from polypharmacy FUNCTIONAL STATUS: fully ambulatory DISCHARGE CONDITION: fair DISCHARGE INSTRUCTIONS: Discharge Orders Patient/Family Education on Stroke Signs and Symptoms Patient/Family Education on Discharge Medications Patient/Family Education on Follow Up Appointment Information Patient/Family Education on Activation of an Emergency System and/or 911 Other (see Comments) Order Comments: None Anticoagulation already ordered Discharge Statin already ordered Smoking Cessation / Tobacco Avoidance Education Order Comments: Nursing Assessment Info: Physician Assessment Info: Smoker: No Social History Tobacco Use Smoking status: Never Smoker Smokeless tobacco: Never Used General Info: Cardiac (2 gm Sodium, Low Fat, Low Cholesterol) Diet; Texture: Regular. Texture Regular. Diabetic: No Discharge Condition - Discharge Condition: FAIR Discharge Activity Discharge Activity: As Tolerated Discharge Follow-up: Specialty Provider REFERRING/PCP PROV NOT IN SYST (Private Neurologist); 1 Week To Provider: REFERRING/PCP PROV NOT IN SYST [[id number]] Private Neurologist Patient's Preferred Location: [place] Discharge Disposition: Home Health not related to Admit, (ARS) When (Patients with risk for unplanned readmission score over 16 or those noted as Hospital Dependent should follow up within 7 days with PCP or primary DX specialist): 1 Week Risk of Unplanned Readmission:( Score greater than 16 indicates high risk) 16 VTE Propylaxis- Was ordered during hospitalization DISCHARGE MEDICATIONS: Current Discharge Medication List START taking these medications Details amLODIPine (NORVASC) 10 mg Take 10 mg by mouth daily. Qty: 30 tablet, Refills: 0 Start date: 02/08/2020 Associated Diagnoses: Toxic metabolic encephalopathy aspirin 81 mg Take 81 mg by mouth daily. Qty: 30 tablet, Refills: 0 Start date: 02/08/2020 Associated Diagnoses: Toxic metabolic encephalopathy hydrALAZINE (APRESOLINE) 50 mg Take 50 mg by mouth every 8 (eight) hours. Qty: 60 tablet, Refills: 0 Start date: 02/08/2020 Associated Diagnoses: Toxic metabolic encephalopathy CONTINUE these medications which have NOT CHANGED Details lithium carbonate (LITHONATE) 300 mg Take 300 mg by mouth 2 (two) times daily. temazepam (RESTORIL) 15 mg Take 15 mg by mouth at bedtime as needed for Insomnia. ursodioL (ACTIGALL) 500 mg Take 500 mg by mouth 2 (two) times daily. albuterol (VENTOLIN) 2 Puffs Inhale 2 Puffs every 4 (four) hours as needed for Wheezing, Shortness of Breath, Bronchospasm or Chest tightness. Qty: 8.5 g, Refills: 0 Associated Diagnoses: Acute bronchitis, unspecified organism chlordiazePOXIDE (LIBRIUM) 10 mg Take 10 mg by mouth 3 (three) times daily. pantoprazole (PROTONIX) 40 mg Take 40 mg by mouth 2 (two) times daily. Qty: 60 tablet, Refills: 0 Associated Diagnoses: Gastroesophageal reflux disease, esophagitis presence not specified proMETHazine (PHENERGAN) 25 mg Take 25 mg by mouth every 6 (six) hours as needed for N/V alternatingwith Ondansetron. Qty: 28 tablet, Refills: 0 Associated Diagnoses: Acute on chronic pancreatitis CREON 36,000-114,000- 180,000 unit CpDR Take by mouth 3 (three) times daily with meals. Refills: 0 divalproex (DEPAKOTE) 500 mg Take 500 mg by mouth daily. escitalopram oxalate (LEXAPRO) 20 mg Take 20 mg by mouth at bedtime. QUEtiapine (SEROQUEL) 400 mg Take 400 mg by mouth at bedtime. tiZANidine (ZANAFLEX) 4 mg Take 4 mg by mouth 2 (two) times daily. !! LOSARTAN POTASSIUM (LOSARTAN ORAL) 100 mg Take 100 mg by mouth daily. proMETHazine (PHENERGAN) 25 mg Insert 25 mg into rectum every 4 (four) hours as needed for Nausea and Vomiting (N/V). Qty: 16 Suppository, Refills: 0 Associated Diagnoses: Cyclical vomiting syndrome benzonatate (TESSALON) 200 mg Take 200 mg by mouth 3 (three) times daily as needed for Cough. Qty: 21 capsule, Refills: 0 Associated Diagnoses: Acute bronchitis, unspecified organism ondansetron (ZOFRAN) 4 mg Take 4 mg by mouth every 8 (eight) hours as needed for Nausea and Vomiting(N/V). Qty: 12 tablet, Refills: 0 Associated Diagnoses: Acute bronchitis, unspecified organism traMADoL (ULTRAM) 50 mg Take 50 mg by mouth every 6 (six) hours as needed for Pain (scale 7-10). Qty: 20 tablet, Refills: 0 Associated Diagnoses: Acute bronchitis, unspecified organism ondansetron (ZOFRAN-ODT) 4 mg Take 4 mg by mouth every 8 (eight) hours as needed for Nausea and Vomiting (N/V). Qty: 20 tablet, Refills: 0 Associated Diagnoses: Epigastric pain !! losartan (COZAAR) 100 mg Take 100 mg by mouth daily. Qty: 30 tablet, Refills: 0 Associated Diagnoses: Essential hypertension meloxicam (MOBIC) 7.5 mg Take 7.5 mg by mouth daily. HYDROcodone-acetaminophen (NORCO) 1 tablet Take 1 tablet by mouth every 6 (six) hours as needed (Pain scal 7-10). Qty: 20 tablet, Refills: 0 Associated Diagnoses: Acute on chronic pancreatitis gabapentin (NEURONTIN) 300 mg Take 300 mg by mouth 3 (three) times daily. !! - Potential duplicate medications found. Please discuss with provider. STOP taking these medications Nitrofurantoin&Nit. Macrocryst (MACROBID) 100 mg Comments: Reason for Stopping: traMADoL (ULTRAM-ER) 100 mg Comments: Reason for Stopping: PATIENT EDUCATION PROVIDED: DISCHARGE: Detox center FOLLOW-UP APPOINTMENT: PLAN FOR READMISSION: No Please call or text [phone] to contact Segundo Gibbons DO with any questions. - documented in this encounter Discharge Instructions AppointmentsTeodora Looney - 02/08/2020 10:33 AM CDTYou need to follow up with Dr. Jeremías Rivers (Neurology) in 1 week after discharged. [address] [place] [address]. [address] [facility], [address] [id number] signed by Teodora Looney at 02/08/2020 10:33 AM CDT AttachmentsThe following attachments cannot be sent through Care Everywhere. Altered Level of Consciousness (LOC) (Barbadian)High Blood Pressure (Hypertension), Discharge Instructions (Barbadian)Amlodipine tablets (Barbadian) Ondansetron tablets (Barbadian)Aspirin, ASA oral tablets (Barbadian)documented in this encounter Progress Notes Jessica Armstrong PTA - 02/08/2020 3:16 PM CDTPhysical Therapy Progress Note: Discharge Recommendations: Therapy Needs and Potential: Patient would benefit from continued physical therapy services to address: decline in bed mobility decline in transfers decline in gait and/or balance decreased strength decreased endurance decreased motor planning Challenges to Home Transition: increased risk of falls Equipment recommendations: Wheelchair PAIN: -Pain Description: aching -Pain Location: head -Pain rating before treatment: does not rate, After treatment: does not rate -Pain Management: Nursing Notified PRECAUTIONS: Weight Bearing Precaution: NA General Precautions: PPE used:Gloves and Surgical mask, General, Fall Bracing/Cast present or required:N/A S: Patient initially declining therapy due to c/o with headache. Educated patient the importance and benefits of participating with PT. Patient agreeable to working with PT. O: Patient met Semi reclined in bed, with RN in room. Patient seen for the following: Bed mobility: Supine to sit: Independent Scooting to edge of bed: Independent Sit to supine: Independent analyzed patient's static/dynamic sitting balance: Good Transfers: Sit to stand: SBA/Setup using no device Stand to sit: SBA/Setup using Rolling Walker Static/dynamic standing balance: Fair+ Verbal cueing provided for correct hand placement and correct use of AD cued provided for postural adjustment Gait: Assisted patient with ambulation as follows: 20 feet using no device and CGA Patient presenting with Step-through gait pattern. with minimal instability and no LOB Patient presenting with antalgic gait pattern due to c/o weakness in usha LE's Educated patient on use of rolling walker to help improve stability 20 feet using rolling walker and SBA Patient presenting with step-through gait pattern with minimal instability and no LOB cued provided for postural adjustment Cued provided for rolling walker management and usha LE sequence Therapeutic exercise: instructed patient in the following: ankle pumps, quad sets, glut sets, adductor sets, heel slides, hip abduction/adduction, straight leg raises, short arc quads patient instructed to perform HEP 3 times per day, 10 repetitions. introduced supine HEP to help improve usha LE strength provided patient with visual comprehensive HEP along with detailed instructions (visual/verbal demo)on how to correctly perform all exercise reps Educated the importance of compliance with performance of all exercises to help with increasing overall strength, endurance, flexibility, and ROM patient verbalizing understanding to all discussed Patient provided with preferred teaching of verbal information, written information and demonstration on functional mobility, gait training, usha LE therex HEP, rolling walker education, balance, and safety awareness. Shows readiness to learn. Verbal instruction and Written material teaching provided. I ndividual is able to read and verbalizes understanding of teaching provided. After session, patient Semi reclined in bed and call villar provided. RN notified. A: Patient tolerated session well. Patient progressing toward goals #3. Patient with improved functional mobility since previous session. Patient met goal #1, #2, and #4. Supervising PT notified onpatient's progress. P: PT will - attempt to progress ambulation next session. Total Timed Tx Codes in Minutes: 19 Min Total Treatment Time in Minutes: 19 Min Jessica Armstrong PTA Pager # [phone] Supervising PT Joyce Heard PT Erika Cuadra RN - 02/08/2020 2:28 PM CDT Care Management Discharge Disposition Note (DCDN) Interventions: Disease specific education;Follow-up phone calls;Intensive medication reconciliation/management;Follow-up appointments;Clear discharge plan Providers: Physician;Drip Molder/Gifted Teacher;Nurse Patient Capacity Improvements: Other Discharge Plan for ongoing care and services: Alf Facility (SNF) Patient Choice completed for referred services: Yes Discussed with patient/patients family involved in decision making: Patient or family caregiver understands, and agrees with discharge plan. Discharge Plan: Alf Facility (SNF) DME location: Other DME location: Durable Medical Equipment: Home Health location: Discharge location(s): [facility] location: [address] () [phone] () [phone] Community resources/referrals made or provided to patient: Resources/Referrals: Mental Status: Alert & Oriented to Person,Place & Time Psychosocial issues and/or concerns resulting in patient being a high risk for re-admission: Manage ADL indepentdly: Discussed with patient/patients family involved in decision making: Primary Family/Support Person Name and Phone Number: Living Arrangement: Home Other living arrangement: Address of living arrangement: [address] [place] [address] Funding Resources: Commercial;Medicare A & B [facility] patient [facility] Nursing informed of discharge plan: CHP referral sent? CM medication request completed (if appropriate): PCP: Transportation: Wheelchair Van Prior authorization obtained for ambulance: Authorization number: CPT code: Discharge Medications Will the patient be able to obtain his medications? Does the patient have transportation to to obtain the prescription medications? 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 Pt cannot afford WC Van. CM/SW Name & Contact number: Erika Cuadra RN . [phone] The following information has been provided to the facility noted above: reason for the patient discharge or transfer; patients physical and psychosocial status; summary of care, treatment, servicesprovided to patient; and the patient progress toward goals. Segundo Gibbons DO - 02/07/2020 12:06 PM CDT Medicine Progress Note Subjective Yessenia Aleman is a 59 year old female patient is feeling well this morning, awake, alert oriented 3, requesting to go to a detox facility for narcotics use. Patient is very excited that she took a shower this morning Objective Physical Exam: Vitals: 02/07/20 0405 02/07/20 0736 02/07/20 0842 02/07/20 0843 BP: 133/82 126/85 (!) 132/92 133/89 BP Location: Left arm Patient Position: Sitting Sitting BP CUFF SIZE: Adult Large Adult Large Pulse: 75 83 92 103 Resp: 18 18 19 Temp: 36.6 C (97.8 F) 36.5 C (97.7 F) TempSrc: Oral Oral SpO2: 97% 92% Weight: General Appearance: Alert, cooperative, no distress, appears stated age Head: Normocephalic, without obvious abnormality, atraumatic Neck: Supple no JVD or Lymphadenopathy Lungs: Clear to auscultation bilaterally, respirations unlabored Heart: S1 and S2 normal, no murmur Abdomen: Soft, NT, ND with good bowel sounds Extremities: No cyanosis, clubbing or edema Skin: Skin color, texture, turgor normal, no rashes or lesions No Bacteremia Pain assessed and addressed Medications Current Facility-Administered Medications: cyanocobalamin (VITAMIN B12) injection 1,000 mcg, 1,000 mcg, Subcutaneous, Q24H, Katheryn Retana MD,1,000 mcg at 02/07/20 0839 hydrALAZINE (APRESOLINE) tablet 50 mg, 50 mg, Oral, Q8H, Segundo Gibbons DO, 50 mg at 02/06/200503 vpggol-cedqonja-dpooeue (CREON) 12,000-38,000 -60,000 unit capsule 3 capsule, 3 capsule, Oral, TID MEALS, Segundo Gibbons DO, Stopped at 02/07/20 0800 ondansetron (ZOFRAN) tablet 4 mg, 4 mg, Oral, Q6HPRN, Monet Dominguez MD acetaminophen (TYLENOL) tablet 650 mg, 650 mg, Oral, Q8HPRN, Aiden, Get, INDUSTRIAL ORDER CLERK, 650 mg at 02/07/20 0839 divalproex (DEPAKOTE) EC tablet 500 mg, 500 mg, Oral, DAILY, AidenGet huitron, INDUSTRIAL ORDER CLERK, 500 mg at 02/07/20 0835 docusate (COLACE) capsule 100 mg, 100 mg, Oral, BIDPRN, AidenGet huitron, INDUSTRIAL ORDER CLERK enoxaparin (LOVENOX) injection 40 mg, 40 mg, Subcutaneous, DAILY, AidenGet huitron, INDUSTRIAL ORDER CLERK, 40 mg at 02/07/20 0839 lactated ringers IV infusion 1,000 mL, 1,000 mL, IV Infusion, CONTINUOUS, Get Aguillon INDUSTRIAL ORDER CLERK, Last Rate: 100 mL/hr at 02/06/202136, 1,000 mL at 02/06/202136 lactulose (CEPHULAC) solution 15 mL, 15 mL, Oral, BID, Alex Mcknight MD, 15 mL at 02/07/20 0835 magnesium oxide (MAG-OX 400) tablet 400 mg, 400 mg, Oral, DAILY, Alex Mcknight MD, 400 mg at 02/07/20 0835 pantoprazole (PROTONIX) EC tablet 40 mg, 40 mg, Oral, BID, Get Aguillon INDUSTRIAL ORDER CLERK, 40 mg at 02/07/2035 sennosides (SENOKOT) tablet 8.6 mg, 8.6 mg, Oral, DAILY, Alex Mcknight MD, 8.6 mg at traMADoL (ULTRAM) tablet 50 mg, 50 mg, Oral, Q8HPRN, Get Aguillon, INDUSTRIAL ORDER CLERK amLODIPine (NORVASC) tablet 10 mg, 10 mg, Oral, DAILY, Alex Mcknight MD, 10 mg at 02/07/20 0835 labetaloL (NORMODYNE) injection 10 mg, 10 mg, Slow IV Push, Q4HPRN, Alex Mcknight MD, 10 mg at 02/06/20 0851 losartan (COZAAR) tablet 100 mg, 100 mg, Oral, DAILY, Alex Mcknight MD, 100 mg at 02/07/20 0835 hydralAZINE (APRESOLINE) injection 10 mg, 10 mg, Slow IV Push, Q4HPRN, Pasha Hinojosa MD, 10 mg at 02/02/20 1707 Labs/Radiology/Diagnostics Recent Results (from the past 24 hour(s)) CBC WITH DIFF Collection Time: 02/07/20 3:51 AM Result Value Ref Range WBC 5.24 4.30 - 11.10 10*3/L RBC 3.19 (L) 3.93 - 5.25 10*6/L HGB 10.0 (L) 11.6 - 15.0 g/dL HCT 30.8 (L) 35.7 - 45.2 % MCV 96.6 (H) 80.6 - 95.5 fL MCH 31.3 25.9 - 32.8 pg MCHC 32.5 31.6 - 35.1 g/dL RDW-SD 48.5 39.0 - 49.9 fL RDW-CV 13.9 12.0 - 15.5 % PLT 273 166 - 358 10*3/L MPV 9.1 (L) 9.5 - 12.9 fL NRBC/100 WBC 0.0 0.0 - 10.0 /100 WBCs NRBC x10^3 <0.01 10*3/L GRAN MAT (NEUT) % 69.8 % IMM GRAN % 0.40 % LYMPH % 21.9 % MONO % 6.7 % EOS % 0.8 % BASO % 0.4 % GRAN MAT x10^3(ANC) 3.66 1.88 - 7.09 10*3/uL IMM GRAN x10^3 <0.03 0.00 - 0.06 10*3/uL LYMPH x10^3 1.15 (L) 1.32 - 3.29 10*3/uL MONO x10^3 0.35 0.33 - 0.92 10*3/uL EOS x10^3 0.04 0.03 - 0.39 10*3/uL BASO x10^3 <0.03 0.01 - 0.07 10*3/uL BASIC METABOLIC PANEL (NA, K, CL, CO2, GLUCOSE, BUN, CREATININE, CA) Collection Time: 02/07/20 3:51 AM Result Value Ref Range NA 136 135 - 145 mmol/L K 4.3 3.5 - 5.0 mmol/L CL 104 98 - 108 mmol/L CO2 TOTAL 26 23 - 31 mmol/L AGAP 6 2 - 16 BUN 12 7 - 23 mg/dL GLUCOSE 98 70 - 110 mg/dL CREATININE 0.50 0.50 - 1.04 mg/dL CALCIUM 8.9 8.6 - 10.6 mg/dL eGFR Calculation (Non-) 127.2 mL/min/1.73m2 eGFR Calculation () 154.1 mL/min/1.73m2 @ASSESSMENTPLANBEGIN@ Yessenia Aleman is a 59 year old female admitted with decreased mentation, tremors, noted with bilateral upper extremity weakness Principal Problem: Toxic metabolic encephalopathy Active Problems: Obesity (BMI 30-39.9) Alcohol use Essential hypertension Altered mental status 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 Appreciated neurology consult ? Appreciated cervical MRI ? PT/OT evaluation ? Blood pressure is improving ? Gas Dispatcher consult for discharge planning Most recent hemoglobin A1c level: Length of Stay: 5 SEGUNDO GIBBONS DO PHONE [phone] Teodora Rosas OT - 02/06/2020 2:46 PM CDTOccupational Therapy Note 02/06/2020 Patient refused OT treatment this date 05/17 "feeling really bad." BP 162/100, HR 69, O2 99%. Patient with c/o headache. Nursing notified. Will attempt at later date when patient is medically appropriateand agreeable. Teodora Mcallister OTR, [facility] License # [id number] This is not the primary evaluating/treating therapist. Please contact OT/PT department for any questions/concerns. Segundo Quintana DO - 02/06/2020 11:25 AM CDT Medicine Progress Note Subjective Yessenia Aleman is a 59 year old female patient is doing better this morning, denies any acute complaint Objective Physical Exam: Vitals: 02/05/20 1916 02/05/20 2342 02/06/20 0327 02/06/20 0805 BP: (!) 174/113 (!) 168/109 (!) 187/104 (!) 190/105 BP Location: Left arm Patient Position: Sitting Sitting Sitting Sitting BP CUFF SIZE: Adult Large Adult Large Adult Large Adult Large Pulse: 73 76 74 72 Resp: 18 18 17 18 Temp: 36.4 C (97.6 F) 36.4 C (97.5 F) 36.4 C (97.5 F) 36.9 C (98.5 F) TempSrc: Oral Oral Oral Oral SpO2: 100% 100% 100% 97% Weight: General Appearance: Alert, cooperative, no distress, appears stated age Head: Normocephalic, without obvious abnormality, atraumatic Neck: Supple no JVD or Lymphadenopathy Lungs: Clear to auscultation bilaterally, respirations unlabored Heart: S1 and S2 normal, no murmur Abdomen: Soft, NT, ND with good bowel sounds Extremities: No cyanosis, clubbing or edema Skin: Skin color, texture, turgor normal, no rashes or lesions No Bacteremia Pain assessed and addressed Medications Current Facility-Administered Medications: cyanocobalamin (VITAMIN B12) injection 1,000 mcg, 1,000 mcg, Subcutaneous, Q24H, Katheryn Retana MD,1,000 mcg at 02/06/20 0945 hydrALAZINE (APRESOLINE) tablet 50 mg, 50 mg, Oral, Q8H, Teqwimuah, Segundo, DO bjglhv-nqkjmgir-kbdlatp (CREON) 12,000-38,000 -60,000 unit capsule 3 capsule, 3 capsule, Oral, TID MEALS, Teqwimuah, Segundo, DO, 3 capsule at 02/06/20 0946 ondansetron (ZOFRAN) tablet 4 mg, 4 mg, Oral, Q6HPRN, Monet Dominguez MD acetaminophen (TYLENOL) tablet 650 mg, 650 mg, Oral, Q8HPRN, Get Aguillon, INDUSTRIAL ORDER CLERK divalproex (DEPAKOTE) EC tablet 500 mg, 500 mg, Oral, DAILY, Aiden, Get, INDUSTRIAL ORDER CLERK, 500 mg at 02/06/20 08 docusate (COLACE) capsule 100 mg, 100 mg, Oral, BIDPRN, Get Aguillon FNP enoxaparin (LOVENOX) injection 40 mg, 40 mg, Subcutaneous, DAILY, Get Aguillon INDUSTRIAL ORDER CLERK, 40 mg at 02/06/20 0852 lactated ringers IV infusion 1,000 mL, 1,000 mL, IV Infusion, CONTINUOUS, Get Aguillon FNP, Last Rate: 100 mL/hr at 02/04/20 1743, 1,000 mL at 02/04/20 174 lactulose (CEPHULAC) solution 15 mL, 15 mL, Oral, BID, Alex Mcknight MD, 15 mL at 02/06/20 08 magnesium oxide (MAG-OX 400) tablet 400 mg, 400 mg, Oral, DAILY, Alex Mcknight MD, 400 mg at 02/06/20 08 pantoprazole (PROTONIX) EC tablet 40 mg, 40 mg, Oral, BID, Get Aguillon FNP, 40 mg at 02/06/20 08 sennosides (SENOKOT) tablet 8.6 mg, 8.6 mg, Oral, DAILY, Alex Mcknight MD, 8.6 mg at 02/06/200852 traMADoL (ULTRAM) tablet 50 mg, 50 mg, Oral, Q8HPRN, Get Aguillon FNP amLODIPine (NORVASC) tablet 10 mg, 10 mg, Oral, DAILY, Alex Mcknight MD, 10 mg at 02/06/20 08 labetaloL (NORMODYNE) injection 10 mg, 10 mg, Slow IV Push, Q4HPRN, Alex Mcknight MD, 10 mg at 02/06/20 08 losartan (COZAAR) tablet 100 mg, 100 mg, Oral, DAILY, Alex Mcknight MD, 100 mg at 02/06/20 0852 hydralAZINE (APRESOLINE) injection 10 mg, 10 mg, Slow IV Push, Q4HPRN, Pasha Hinojosa MD, 10 mg at 02/02/20 1707 Labs/Radiology/Diagnostics No results found for this or any previous visit (from the past 24 hour(s)). @ASSESSMENTPLANBEGIN@ Yessenia Aleman is a 59 year old female admitted with decreased mentation, tremors, noted with bilateral upper extremity weakness Principal Problem: Toxic metabolic encephalopathy Active Problems: Obesity (BMI 30-39.9) Alcohol use Essential hypertension Altered mental status 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 Appreciated neurology consult ? Appreciated cervical MRI ? Will titrate antihypertensive, optimize blood pressure ? PT/OT evaluation ? Blood pressure has been persistently elevated for the past 24 hours ? Case discussed with ceo and founder, will transfer patient to the ICU for blood pressure management Most recent hemoglobin A1c level: Length of Stay: 4 SEGUNDO GIBBONS DO PHONE [phone] Esteban Walker, PT - 02/06/2020 11:11 AM [facility] Therapy Progress Note: Discharge Recommendations: Therapy Needs and Potential: Patient would benefit from continued physical therapy services to address: decline in bed mobility decline in transfers decline in gait and/or balance decreased strength decreased endurance decreased motor planning Challenges to Home Transition: increased risk of falls Equipment recommendations: wheelchair PAIN: denies pain PRECAUTIONS: Weight Bearing Precaution: NA General Precautions: PPE used:Gloves and Surgical mask, General, Fall, IV ,Telemetry, Headache, Nausea, Dizziness Bracing/Cast present or required:N/A S: Patient agreeable to working with PT. O: Patient met Supine. Patient seen for the following: Bed mobility: Rolling in bed w/ 2-person assist Rolling: Moderate assist Supine-sit: Moderate assist Sit to supine: Moderate assist educated on proper body mechanics Transfers: No transfers today d/t nausea and dizziness. Gait: No transfers today d/t nausea and dizziness. Therapeutic exercise: instructed patient in the following: AROM B LE in supine cued verbally Pt also tolerated sitting on EOB w/ CGA. BP 149/91, HR 68, SpO2 100% on room air After session, patient Semi reclined in bed, Bed alarm on and call villar provided. Nurse Carson present. A: Patient tolerated session poorly. Patient progressing toward goals #1. Some set-back today d/t medical concerns. P: PT will - attempt bed<>chair transfer and ambulation w/ RW. Total Timed Tx Codes in Minutes: 29 Min Total Treatment Time in Minutes: 29 Min Esteban Pepe PT, DPT *PT completing this note is not the primary therapist; Please call therapy department if there are questions. Monet oDminguez MD - 02/06/2020 1:40 AM CDT a 59 year old female patient is doing better this morning, denies any acute complaint Objective Physical Exam: Vitals Vitals: 02/05/20 1916 02/05/20 2342 02/06/20 0327 02/06/20 0805 BP: (!) 174/113 (!) 168/109 (!) 187/104 (!) 190/105 BP Location: Left arm Patient Position: Sitting Sitting Sitting Sitting BP CUFF SIZE: Adult Large Adult Large Adult Large Adult Large Pulse: 73 76 74 72 Resp: 18 18 17 18 Temp: 36.4 C (97.6 F) 36.4 C (97.5 F) 36.4 C (97.5 F) 36.9 C (98.5 F) TempSrc: Oral Oral Oral Oral SpO2: 100% 100% 100% 97% Weight: General Appearance: Alert, cooperative, no distress, appears stated age Head: Normocephalic, without obvious abnormality, atraumatic Neck: Supple no JVD or Lymphadenopathy Lungs: Clear to auscultation bilaterally, respirations unlabored Heart: S1 and S2 normal, no murmur Abdomen: Soft, NT, ND with good bowel sounds Extremities: No cyanosis, clubbing or edema Skin: Skin color, texture, turgor normal, no rashes or lesions No Bacteremia Pain assessed and addressed Medications Current Facility-Administered Medications: cyanocobalamin (VITAMIN B12) injection 1,000 mcg, 1,000 mcg, Subcutaneous, Q24H, Katheryn Retana MD,1,000 mcg at 02/06/20 0945 hydrALAZINE (APRESOLINE) tablet 50 mg, 50 mg, Oral, Q8H, Segundo Gibbons DO atkbpu-gkxflcyv-copmesh (CREON) 12,000-38,000 -60,000 unit capsule 3 capsule, 3 capsule, Oral, TID MEALS, Teqwimuah, Segundo, DO, 3 capsule at 02/06/20 0946 ondansetron (ZOFRAN) tablet 4 mg, 4 mg, Oral, Q6HPRN, Monet Dominguez MD acetaminophen (TYLENOL) tablet 650 mg, 650 mg, Oral, Q8HPRN, Get Aguillon FNP divalproex (DEPAKOTE) EC tablet 500 mg, 500 mg, Oral, DAILY, Get Aguillon FNP, 500 mg at 02/06/20 08 docusate (COLACE) capsule 100 mg, 100 mg, Oral, BIDPRN, Get Aguillon FNP enoxaparin (LOVENOX) injection 40 mg, 40 mg, Subcutaneous, DAILY, Get Aguillon FNP, 40 mg at 02/06/20 08 lactated ringers IV infusion 1,000 mL, 1,000 mL, IV Infusion, CONTINUOUS, Get Aguillon FNP, Last Rate: 100 mL/hr at 02/04/20 1743, 1,000 mL at 02/04/20 174 lactulose (CEPHULAC) solution 15 mL, 15 mL, Oral, BID, Alex Mcknight MD, 15 mL at 02/06/20 08 magnesium oxide (MAG-OX 400) tablet 400 mg, 400 mg, Oral, DAILY, Alex Mcknight MD, 400 mg at 02/06/20851 pantoprazole (PROTONIX) EC tablet 40 mg, 40 mg, Oral, BID, Get Aguillon FNP, 40 mg at 02/06/20 08 sennosides (SENOKOT) tablet 8.6 mg, 8.6 mg, Oral, DAILY, Alex Mcknight MD, 8.6 mg at traMADoL (ULTRAM) tablet 50 mg, 50 mg, Oral, Q8HPRN, Get Aguillon FNP amLODIPine (NORVASC) tablet 10 mg, 10 mg, Oral, DAILY, Alex Mcknight MD, 10 mg at 02/06/20 08 labetaloL (NORMODYNE) injection 10 mg, 10 mg, Slow IV Push, Q4HPRN, Alex Mcknight MD, 10 mg at 02/06/20 0851 losartan (COZAAR) tablet 100 mg, 100 mg, Oral, DAILY, Alex Mcknight MD, 100 mg at 02/06/20 0852 hydralAZINE (APRESOLINE) injection 10 mg, 10 mg, Slow IV Push, Q4HPRN, Pasha Hinojosa MD, 10 mg at 02/02/20 1707 Labs/Radiology/Diagnostics No results found for this or any previous visit (from the past 24 hour(s)). ASSESSMENT Yessenia Aleman is a 59 year old female admitted with decreased mentation, tremors, noted with bilateral upper extremity weakness Principal Problem: Toxic metabolic encephalopathy Active Problems: Obesity (BMI 30-39.9) Alcohol use Essential hypertension Altered mental status Cerebrovascular accident (CVA) due to embolism of basilar artery ASSESSMENT/PLAN Yessenia Aleman is a 59 year old female with PMH as listed above, admitted to the hospital with: Metabolic/Toxic encephalopathy due to opoid withdrawal Bilateral upper ext weakness R/O central spinal cord syndrome Librium induced toxic encephalopathy (resolved Librium level now normal) Dehydration Depression Hypertension H/o chronic pancreatitis H/o chronic pain syndrome H/o peptic ulcer disease H/o Elevated librium levels revolved. Acute on chronic anemia Obesity Plan Admit to medical floor Neuro obs Avoid hepatoxic meds Hold Librium Hold [place] L/R IVF NPO Linh Cash OTA - 02/05/2020 4:54 PM CDT OCCUPATIONAL THERAPY NOTE: Discharge Recommendations: Therapy Needs and Potential:- Patient would benefit from continued skilled occupational therapy services to address: Decline in basic activities of daily living, Decline in instrumental activities of daily living, Decline in cognition, Decreased strength, Decreased range of motion, Decreased endurance, Decreased coordination and Caregiver training - Patient demonstrates good potential to improve and meet therapy goals with further skilled occupational therapy services. - Patient appears motivated to improve their B/IADLs and return to their previous level of function. - Patient demonstrates ability to tolerate at least 30-60 minutes of active participation in occupational therapy. - Patient able to follow commands: 1-step Yes, Multi-step No, Inconsistencies Yes Challenges to Home Transition:- Requires physical assistance for BADLS - Requires physical assistance for IADLS - Requires supervision or verbal cues for BADLS - Requires supervision or verbal cues for IADLS - Decreased safety awareness/judgement - Increased risk of falls Equipment Recommendations:Bedside commode, Shower chair, Grab bars, Hand held shower and I certify that Yessenia Aleman is under my care and that I had a urah-si-gewa encounter with this patient on: 02/04/20 . The primary reason for the durable medical equipment: limited functional mobility, high fall/safety risk. I am recomending that, based on my findings, the following is medically necessary durable medical equipment: 3 in 1 bedside commode. Height: Ht Readings from Last 1 Encounters: 12/18/19 5' (1.524 m) Weight: Wt Readings from Last 1 Encounters: 02/03/20 177 lb 6.4 oz (80.5 kg) Duration of need: 99 months. Patient does not have access to regular toilet facilities because he/she is confined to: A single room. Precautions: Weight bearing status: NA General: PPE Utilized: Gloves and Surgical mask and Fall Bracing: N/A S: Patient agreeable to participate in occupational therapy. Patient reporting light headiness and nausea. RN notiifed PAIN Pre-treatment: denies pain Post-treatment: denies pain O: Patient found semireclining in bed. Vital signs stable . Patient seen this date for the following: Therapeutic Exercise/Procedure Educated Patient about AROM for USHA UE:Patient instructed to perform Shoulder flexion/extension, Elbow flexion/extension, Forearm pronation/supination, Wrist flexion/extension, Finger flexion/extension and Finger abduction/adduction 3 sets x10 reps. Patient/caregiver verbalized understanding to all discussed. Patient initially agreeing to OOB activity however while explaining session patient began reporting feeling light headed and nausea. BP 174/110 (131) HR 82. Session terminated RN notified. Patient left semireclining in bed with call villar in reach. A: Patient exhibited Poor participation in therapy and responded poorly to treatment this session. No progress toward goals at this time. Poor endurance and Persistent weakness remain(s) a limiting factor. Patient continues to present with Decreased independence with ADL, Decreased functional ROM, Dec reased strength/endurance for functional activity, Sensory deficits, Impaired safety awareness and Impaired Cognition and will benefit from continued OT services to address above areas and improve functional status. P: Functional motor treatment, Patient/Caregivier Education, Equipment recommendations, Daily livingactivities, Therapeutic exercises, Neuromuscular Re-Education, Sensory integration and Cognitive retraining FAROOQ Griffiths Supervising OTR Maru Wilson Pager# [phone] Total Timed Treatment Codes: 16 Min Total Treatment Time: 16 Min Erika Huynh RN - 02/05/2020 2:35 PM CDT Yessenia Aleman [id number] RE: Care Management Patient Choice Notification Your doctor has recommended that you have post-hospital care services at discharge. You can choose the provider you want, regardless of its relationship with [facility]. We will contact any of the agencieswithin the [facility] network, or any other agency upon your request. Based on where you live and agency service areas, a list was generated from: Your insurance company's in-network provider list Disclosure: [facility] owns or is affiliated with the following facilities/agencies: [facility] (assisted and rehabilitation) If you are being referred to a home health agency or assisted facility, you will also be given a [facility] Beneficiary Notification Letter (Mviobva-nm-Pwwe Profile Supplement) informing you about [facility]'s preferred partners. 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 The [facility] has given me a list of providers in the area available to me and/or my authorized abrasives sales representative. My choice(s) are listed below: ? SNF/LTC: [facility], [facility] [place], [place] () [phone] (f) [phone] Your signature on this form indicates that you have been given the following information: ? I have been advised of my right to choose the providers I wish ? If assisted facilities, long-term acute care hospitals, personal care homes, or home healthagencies were recommended, I was given a list of facilities/agencies in my geographic area that deliver these services or ? I have pre-selected or am an established client with a facility/agency and choose to initiate/continue services 02/05/20 Patient/Guardian/Responsible Alliance Party Signature Date rika Cuadra RN - 02/05/2020 2:29 PM CDTCARE MANAGEMENT NOTE Spoke with patient and spouse. Patient OK with placement for therapy. Left her a list of in network facilities. She asked her spouse to choose. Called him and read the in network ones near his house [facility] that patient had chosen. He wished for [facility] but they were OON, second choice was [facility]. Referral started. Erika Cuadra RN, BSN, CRRN Area Operations Director [facility] Segundo Gibbons DO - 02/05/2020 11:44 AM CDT Medicine Progress Note Subjective Yessenia Aleman is a 59 year old female patient is still feeling very weak and still complaining of nausea Objective Physical Exam: Vitals: 02/05/20 0720 02/05/20 0721 02/05/20 0908 02/05/20 1105 BP: (!) 161/115 (!) 185/113 (!) 166/114 (!) 166/90 BP Location: Right arm Right arm Right arm Left arm Patient Position: Sitting Sitting Sitting Sitting BP CUFF SIZE: Adult Large Adult Large Adult Large Adult Large Pulse: 81 77 85 84 Resp: 18 Temp: 36.7 C (98 F) TempSrc: Oral SpO2: 99% 98% Weight: General Appearance: Alert, cooperative, no distress, appears stated age Head: Normocephalic, without obvious abnormality, atraumatic Neck: Supple no JVD or Lymphadenopathy Lungs: Clear to auscultation bilaterally, respirations unlabored Heart: S1 and S2 normal, no murmur Abdomen: Soft, NT, ND with good bowel sounds Extremities: No cyanosis, clubbing or edema Skin: Skin color, texture, turgor normal, no rashes or lesions No Bacteremia Pain assessed and addressed Medications Current Facility-Administered Medications: hydrALAZINE (APRESOLINE) tablet 10 mg, 10 mg, Oral, Q8H, Teqwimuah, Segundo, DO spkmpv-taurauia-qthnbim (CREON) 12,000-38,000 -60,000 unit capsule 3 capsule, 3 capsule, Oral, TID MEALS, Teqwimuah, Segundo, DO, 3 capsule at 02/05/20 0957 LORazepam (ATIVAN) injection 1 mg, 1 mg, Slow IV Push, ONCE, Teqwimuah, Segundo, DO ondansetron (ZOFRAN) tablet 4 mg, 4 mg, Oral, Q6HPRN, Monet Dominguez MD acetaminophen (TYLENOL) tablet 650 mg, 650 mg, Oral, Q8HPRN, Get Aguillon FNP divalproex (DEPAKOTE) EC tablet 500 mg, 500 mg, Oral, DAILY, Get Aguillon FNP, 500 mg at 02/05/20 0740 docusate (COLACE) capsule 100 mg, 100 mg, Oral, BIDPRN, Get Aguillon FNP enoxaparin (LOVENOX) injection 40 mg, 40 mg, Subcutaneous, DAILY, Get Aguillon FNP, 40 mg at 02/05/20 0817 lactated ringers IV infusion 1,000 mL, 1,000 mL, IV Infusion, CONTINUOUS, Get Aguillon FNP, Last Rate: 100 mL/hr at 02/04/20 1743, 1,000 mL at 02/04/20 1743 lactulose (CEPHULAC) solution 15 mL, 15 mL, Oral, BID, Alex Mcknight MD, 15 mL at 02/05/20 0740 magnesium oxide (MAG-OX 400) tablet 400 mg, 400 mg, Oral, DAILY, Alex Mcknight MD, 400 mg at 02/05/20 0739 pantoprazole (PROTONIX) EC tablet 40 mg, 40 mg, Oral, BID, Get Aguillon, INDUSTRIAL ORDER CLERK, 40 mg at 02/05/20 0739 sennosides (SENOKOT) tablet 8.6 mg, 8.6 mg, Oral, DAILY, Alex Mcknight MD, 8.6 mg at 02/04/200740 traMADoL (ULTRAM) tablet 50 mg, 50 mg, Oral, Q8HPRN, Get Aguillon, INDUSTRIAL ORDER CLERK amLODIPine (NORVASC) tablet 10 mg, 10 mg, Oral, DAILY, Alex Mcknight MD, 10 mg at 02/05/20 0739 labetaloL (NORMODYNE) injection 10 mg, 10 mg, Slow IV Push, Q4HPRN, Alex Mcknight MD, 10 mg at 02/03/20 0342 losartan (COZAAR) tablet 100 mg, 100 mg, Oral, DAILY, Alex Mcknight MD, 100 mg at 02/05/20 0740 cyanocobalamin (VITAMIN B12) injection 1,000 mcg, 1,000 mcg, Subcutaneous, Q24H, Pasha Hinojosa MD, 1,000 mcg at 02/05/20 1125 hydralAZINE (APRESOLINE) injection 10 mg, 10 mg, Slow IV Push, Q4HPRN, Pasha Hinojosa MD, 10 mg at 02/02/20 1707 Labs/Radiology/Diagnostics Recent Results (from the past 24 hour(s)) COMP. METABOLIC PANEL (13263) Collection Time: 02/05/20 4:37 AM Result Value Ref Range NA 140 135 - 145 mmol/L K 3.7 3.5 - 5.0 mmol/L CL 107 98 - 108 mmol/L CO2 TOTAL 25 23 - 31 mmol/L AGAP 8 2 - 16 BUN 11 7 - 23 mg/dL GLUCOSE 90 70 - 110 mg/dL CREATININE 0.58 0.50 - 1.04 mg/dL TOTAL BILI 0.9 0.1 - 1.1 mg/dL CALCIUM 8.9 8.6 - 10.6 mg/dL T PROTEIN 6.7 6.3 - 8.2 g/dL ALBUMIN 3.5 3.5 - 5.0 g/dL ALK PHOS 518 (H) 34 - 122 U/L ALTv 84 (H) 5 - 35 U/L AST(SGOT) 49 (H) 13 - 40 U/L eGFR Calculation (Non-) 107.2 mL/min/1.73m2 eGFR Calculation () 129.9 mL/min/1.73m2 CBC WITH DIFF Collection Time: 02/05/20 4:37 AM Result Value Ref Range WBC 5.08 4.30 - 11.10 10*3/L RBC 3.06 (L) 3.93 - 5.25 10*6/L HGB 9.4 (L) 11.6 - 15.0 g/dL HCT 30.1 (L) 35.7 - 45.2 % MCV 98.4 (H) 80.6 - 95.5 fL MCH 30.7 25.9 - 32.8 pg MCHC 31.2 (L) 31.6 - 35.1 g/dL RDW-SD 48.1 39.0 - 49.9 fL RDW-CV 13.4 12.0 - 15.5 % PLT 229 166 - 358 10*3/L MPV 8.7 (L) 9.5 - 12.9 fL NRBC/100 WBC 0.0 0.0 - 10.0 /100 WBCs NRBC x10^3 <0.01 10*3/L GRAN MAT (NEUT) % 68.3 % IMM GRAN % 0.20 % LYMPH % 24.2 % MONO % 5.5 % EOS % 1.4 % BASO % 0.4 % GRAN MAT x10^3(ANC) 3.47 1.88 - 7.09 10*3/uL IMM GRAN x10^3 <0.03 0.00 - 0.06 10*3/uL LYMPH x10^3 1.23 (L) 1.32 - 3.29 10*3/uL MONO x10^3 0.28 (L) 0.33 - 0.92 10*3/uL EOS x10^3 0.07 0.03 - 0.39 10*3/uL BASO x10^3 <0.03 0.01 - 0.07 10*3/uL @[facility]@ Yessenia Milagro Aleman is a 59 year old female admitted with decreased mentation, tremors, noted with bilateral upper extremity weakness Principal Problem: Toxic metabolic encephalopathy Active Problems: Obesity (BMI 30-39.9) Alcohol use Essential hypertension Altered mental status 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 Appreciated neurology consult ? Follow-up with cervical MRI ? Will titrate antihypertensive, optimize blood pressure ? PT/OT evaluation ? If blood pressure remains elevated will consider moving patient to the ICU to start on a Cardene drip Most recent hemoglobin A1c level: Length of Stay: 3 SEGUNDO GIBBONS DO PHONE [phone] Erika Huynh RN - 02/04/2020 11:42 AM CDTCARE MANAGEMENT NOTE Called all three facilities previously sent to, pending response from Salome Joshi and Lillian at [facility] to see if they were in network, [facility] was OON. Pending PT/OT evals. Printed in network SNF list and will discuss with . Left VM for spouse asking for call back. Erika Cuadra RN, BSN, CRRN Area Operations Director [facility] Segundo Gibbons DO - 02/04/2020 10:58 AM CDT Medicine Progress Note Subjective Yessenia Aleman is a 59 year old female patient is feeling very nauseous this morning, still unable to use half fingers due to weakness Objective Physical Exam: Vitals: 02/04/20 0349 02/04/20 0708 02/04/20 0958 02/04/20 1001 BP: (!) 141/95 (!) 149/99 (!) 163/116 (!) 172/112 Patient Position: Sitting Sitting BP CUFF SIZE: Adult Large Adult Large Pulse: 67 61 68 69 Resp: 17 18 Temp: 36.4 C (97.6 F) 36.6 C (97.8 F) TempSrc: Oral Oral SpO2: 100% 100% Weight: General Appearance: Alert, cooperative, no distress, appears stated age Head: Normocephalic, without obvious abnormality, atraumatic Neck: Supple no JVD or Lymphadenopathy Lungs: Clear to auscultation bilaterally, respirations unlabored Heart: S1 and S2 normal, no murmur Abdomen: Soft, NT, ND with good bowel sounds Extremities: No cyanosis, clubbing or edema Skin: Skin color, texture, turgor normal, no rashes or lesions No Bacteremia Pain assessed and addressed Medications Current Facility-Administered Medications: LORazepam (ATIVAN) tablet 1 mg, 1 mg, Oral, ONCE, Teq[place], Segundo, DO ondansetron (ZOFRAN (PF)) injection 4 mg, 4 mg, Slow IV Push, Q8HPRN, Teq[place]imuah, Segundo, DO, 4 mgat 02/04/20 1020 acetaminophen (TYLENOL) tablet 650 mg, 650 mg, Oral, Q8HPRN, Get Aguillon, INDUSTRIAL ORDER CLERK divalproex (DEPAKOTE) EC tablet 500 mg, 500 mg, Oral, DAILY, Get Aguillon FNP, 500 mg at 02/04/20 0836 docusate (COLACE) capsule 100 mg, 100 mg, Oral, BIDPRN, Get Aguillon, INDUSTRIAL ORDER CLERK enoxaparin (LOVENOX) injection 40 mg, 40 mg, Subcutaneous, DAILY, Get Aguillon FNP, 40 mg at 02/04/20 0837 FENTanyl PF (SUBLIMAZE (PF)) injection 50 mcg, 50 mcg, Slow IV Push, Q3HPRN x 24 Hours, Get Aguillon, INDUSTRIAL ORDER CLERK lactated ringers IV infusion 1,000 mL, 1,000 mL, IV Infusion, CONTINUOUS, Get Aguillon FNP, Last Rate: 100 mL/hr at 02/04/20 0505, 1,000 mL at 02/04/20 0505 lactulose (CEPHULAC) solution 15 mL, 15 mL, Oral, BID, Alex Mcknight MD, 15 mL at 02/04/20 0836 magnesium oxide (MAG-OX 400) tablet 400 mg, 400 mg, Oral, DAILY, Alex Mcknight MD, 400 mg at 02/04/20 0836 ondansetron (ZOFRAN) tablet 4 mg, 4 mg, Oral, Q8HPRN, Get Aguillon FNP, 4 mg at 02/04/20 0836 pantoprazole (PROTONIX) EC tablet 40 mg, 40 mg, Oral, BID, Get Aguillon FNP, 40 mg at 02/04/20 0836 sennosides (SENOKOT) tablet 8.6 mg, 8.6 mg, Oral, DAILY, Alex Mcknight MD, 8.6 mg at 02/04/200836 traMADoL (ULTRAM) tablet 50 mg, 50 mg, Oral, Q8HPRN, Get Aguillon FNP amLODIPine (NORVASC) tablet 10 mg, 10 mg, Oral, DAILY, Alex Mcknight MD, 10 mg at 02/04/20 0836 labetaloL (NORMODYNE) injection 10 mg, 10 mg, Slow IV Push, Q4HPRN, Alex Mcknight MD, 10 mg at 02/03/20 0342 mebglu-suuyuwym-xzvagzs (PANCREAZE) 16,800-56,800- 98,400 unit capsule 1 capsule, 1 capsule, Oral, TID MEALS, Alex Mcknight MD, Stopped at 02/04/20 0800 losartan (COZAAR) tablet 100 mg, 100 mg, Oral, DAILY, Alex Mcknight MD, 100 mg at 02/04/20 0836 cyanocobalamin (VITAMIN B12) injection 1,000 mcg, 1,000 mcg, Subcutaneous, Q24H, Pasha Hinojosa MD, 1,000 mcg at 02/04/20 0836 hydralAZINE (APRESOLINE) injection 10 mg, 10 mg, Slow IV Push, Q4HPRN, Pasha Hinojosa MD, 10 mg at 02/02/20 1707 Labs/Radiology/Diagnostics Recent Results (from the past 24 hour(s)) OCCULT (GUAIAC) BLOOD Collection Time: 02/03/20 11:42 AM Specimen: ANAL; Stool Result Value Ref Range Occult (guaiac) Blood Negative Negative AMMONIA, PLASMA Collection Time: 02/03/20 12:06 PM Result Value Ref Range AMMONIA <9 (L) 9 - 33 umol/L BLOOD CULTURE SCREEN Collection Time: 02/03/20 5:19 PM Specimen: VENOUS; Blood Result Value Ref Range Blood Culture-Aerobic Culture In Progress No growth Blood Culture-Anaerobic Culture In Progress No growth BLOOD CULTURE SCREEN Collection Time: 02/03/20 5:19 PM Specimen: VENOUS; Blood Result Value Ref Range Blood Culture-Aerobic Culture In Progress No growth Blood Culture-Anaerobic Culture In Progress No growth COMP. METABOLIC PANEL (13906) Collection Time: 02/04/20 5:01 AM Result Value Ref Range NA 138 135 - 145 mmol/L K 3.7 3.5 - 5.0 mmol/L CL 106 98 - 108 mmol/L CO2 TOTAL 27 23 - 31 mmol/L AGAP 5 2 - 16 BUN 9 7 - 23 mg/dL GLUCOSE 105 70 - 110 mg/dL CREATININE 0.59 0.50 - 1.04 mg/dL TOTAL BILI 0.9 0.1 - 1.1 mg/dL CALCIUM 9.0 8.6 - 10.6 mg/dL T PROTEIN 6.4 6.3 - 8.2 g/dL ALBUMIN 3.2 (L) 3.5 - 5.0 g/dL ALK PHOS 486 (H) 34 - 122 U/L ALTv 91 (H) 5 - 35 U/L AST(SGOT) 41 (H) 13 - 40 U/L eGFR Calculation (Non-) 105.1 mL/min/1.73m2 eGFR Calculation () 127.3 mL/min/1.73m2 CBC with Differential Collection Time: 02/04/20 5:01 AM Result Value Ref Range WBC 7.54 4.30 - 11.10 10*3/L RBC 3.15 (L) 3.93 - 5.25 10*6/L HGB 10.1 (L) 11.6 - 15.0 g/dL HCT 30.5 (L) 35.7 - 45.2 % MCV 96.8 (H) 80.6 - 95.5 fL MCH 32.1 25.9 - 32.8 pg MCHC 33.1 31.6 - 35.1 g/dL RDW-SD 47.9 39.0 - 49.9 fL RDW-CV 13.7 12.0 - 15.5 % PLT 244 166 - 358 10*3/L MPV 8.5 (L) 9.5 - 12.9 fL NRBC/100 WBC 0.0 0.0 - 10.0 /100 WBCs NRBC x10^3 <0.01 10*3/L GRAN MAT (NEUT) % 74.2 % IMM GRAN % 0.40 % LYMPH % 16.6 % MONO % 6.8 % EOS % 1.7 % BASO % 0.3 % GRAN MAT x10^3(ANC) 5.60 1.88 - 7.09 10*3/uL IMM GRAN x10^3 0.03 0.00 - 0.06 10*3/uL LYMPH x10^3 1.25 (L) 1.32 - 3.29 10*3/uL MONO x10^3 0.51 0.33 - 0.92 10*3/uL EOS x10^3 0.13 0.03 - 0.39 10*3/uL BASO x10^3 <0.03 0.01 - 0.07 10*3/uL MAGNESIUM Collection Time: 02/04/20 5:01 AM Result Value Ref Range MAGNESIUM 1.8 1.7 - 2.4 mg/dL N-TERMINAL PRO-BNP Collection Time: 02/04/20 5:01 AM Result Value Ref Range NT-proBNP 403 (H) <=125 pg/mL @ASSESSMENTPLANBEGIN@ Yessenia Aleman is a 59 year old female admitted with decreased mentation, tremors, noted with bilateral upper extremity weakness Principal Problem: Toxic metabolic encephalopathy Active Problems: Obesity (BMI 30-39.9) Alcohol use Essential hypertension Altered mental status ? Follow-up with neurology consult ? Follow-up with cervical MRI ? PT/OT evaluation ? Will minimize polypharmacy Most recent hemoglobin A1c level: Length of Stay: 2 SEGUNDO GIBBONS DO PHONE [phone] Rosario Suggs LBSW - 02/03/2020 4:22 PM CDTSubjective Patient ID: Yessenia Aleman is a 59 year old female. Spoke with patient's on 02-02-20 to discuss discharge planning. He indicates that he would like to consider SNF placement as she is weak and deconditioned and would be unsafe to return home in her condition. Referral was submitted to Salome Reece and [facility] for review. SW notified facilities of patient being transferred to [facility]. They will followup with CM/ADALID with update. SHRUTHI Cheek Gifted Teacher - Care Management [facility] [phone] [email or web address] Review of Systems Objective Physical Exam Assessment/Plan SNF placement ancy Burch RD - 02/03/2020 1:09 PM CDT MEDICAL NUTRITION THERAPY Progress Note Present on Admission: Altered mental status Toxic metabolic encephalopathy Medications: Current Facility-Administered Medications: docusate (COLACE) capsule 100 mg, 100 mg, Oral, DAILY, Alex Mcknight MD, 100 mg at 02/03/20 1233 magnesium oxide (MAG-OX 400) tablet 400 mg, 400 mg, Oral, DAILY, Alex Mcknight MD, 400 mg at 02/03/20 1233 sennosides (SENOKOT) tablet 8.6 mg, 8.6 mg, Oral, DAILY, Alex Mcknight MD, 8.6 mg at 02/03/201233 amLODIPine (NORVASC) tablet 10 mg, 10 mg, Oral, DAILY, Aelx Mcknight MD, 10 mg at 02/03/20 0908 labetaloL (NORMODYNE) injection 10 mg, 10 mg, Slow IV Push, Q4HPRN, Alex Mcknight MD, 10 mg at 02/03/20 0342 lactulose (CEPHULAC) solution 15 mL, 15 mL, Oral, QID, Kenroy Hawkins MD, 15 mL at 02/03/20 1231 dfocqr-etbvqghu-vtzuwmq (PANCREAZE) 16,800-56,800- 98,400 unit capsule 1 capsule, 1 capsule, Oral, TID MEALS, Alex Mcknight MD, 1 capsule at 02/03/20 1231 losartan (COZAAR) tablet 100 mg, 100 mg, Oral, DAILY, Alex Mcknight MD, 100 mg at 02/03/20 0908 cyanocobalamin (VITAMIN B12) injection 1,000 mcg, 1,000 mcg, Subcutaneous, Q24H, Pasha Hinojosa MD, 1,000 mcg at 02/03/20 0907 hydralAZINE (APRESOLINE) injection 10 mg, 10 mg, Slow IV Push, Q4HPRN, Pasha Hinojosa MD, 10 mg at 02/02/20 1707 enoxaparin (LOVENOX) injection 30 mg, 30 mg, Subcutaneous, DAILY, Pasha Hinojosa MD, 30 mg at1 0907 Lab and Medical Test Results: Recent Results (from the past 24 hour(s)) PROCALCITONIN Collection Time: 02/02/20 2:58 PM Result Value Ref Range Procalcitonin 0.05 <0.07 ng/mL PROTHROMBIN TIME / INR Collection Time: 02/02/20 2:58 PM Result Value Ref Range PROTIME PATIENT 12.7 12.0 - 14.7 Seconds INR 1.0 BLOOD CULTURE SCREEN Collection Time: 02/02/20 2:58 PM Specimen: VENOUS; Blood Result Value Ref Range Blood Culture-Aerobic Culture In Progress No growth Blood Culture-Anaerobic Culture In Progress No growth HEPATITIS B SURFACE ANTIBODY Collection Time: 02/02/20 2:58 PM Specimen: ARM, LEFT; Blood Result Value Ref Range HBsAB Negative HBsAb Semi-Quantitative 0.00 mIU/mL HEPATITIS B SURFACE ANTIGEN Collection Time: 02/02/20 2:58 PM Specimen: ARM, LEFT; Blood Result Value Ref Range HBsAg Negative Negative HBsAg Semi-Quantitative 0.14 HAV ANTIBODY (IGG AND IGM) Collection Time: 02/02/20 2:58 PM Specimen: ARM, LEFT; Blood Result Value Ref Range HAV Total Positive HAVT Semi-Quantitative 0.01 HCV ANTIBODY Collection Time: 02/02/20 2:58 PM Result Value Ref Range HCV Ab Negative HCV Semi-Quantitative 0.02 VALPROIC ACID, FREE Collection Time: 02/02/20 2:58 PM Result Value Ref Range Valproic Acid, Free <2.0 (L) 4.0 - 15.0 ug/mL VALPROIC ACID, TOTAL Collection Time: 02/02/20 2:58 PM Result Value Ref Range VALPROIC A <10 (L) 50 - 100 ug/mL BLOOD CULTURE SCREEN Collection Time: 02/02/20 3:19 PM Specimen: VENOUS; Blood Result Value Ref Range Blood Culture-Aerobic Culture In Progress No growth Blood Culture-Anaerobic Culture In Progress No growth COMP. METABOLIC PANEL (43217) Collection Time: 02/03/20 3:45 AM Result Value Ref Range NA 136 135 - 145 mmol/L K 3.6 3.5 - 5.0 mmol/L CL 104 98 - 108 mmol/L CO2 TOTAL 28 23 - 31 mmol/L AGAP 4 2 - 16 BUN 7 7 - 23 mg/dL GLUCOSE 138 (H) 70 - 110 mg/dL CREATININE 0.61 0.50 - 1.04 mg/dL TOTAL BILI 1.0 0.1 - 1.1 mg/dL CALCIUM 9.2 8.6 - 10.6 mg/dL T PROTEIN 6.6 6.3 - 8.2 g/dL ALBUMIN 3.5 3.5 - 5.0 g/dL ALK PHOS 584 (H) 34 - 122 U/L ALTv 131 (H) 5 - 35 U/L AST(SGOT) 49 (H) 13 - 40 U/L eGFR Calculation (Non-) 101.1 mL/min/1.73m2 eGFR Calculation () 122.5 mL/min/1.73m2 CBC WITH DIFF Collection Time: 02/03/20 3:45 AM Result Value Ref Range WBC 8.19 4.30 - 11.10 10*3/L RBC 3.07 (L) 3.93 - 5.25 10*6/L HGB 9.8 (L) 11.6 - 15.0 g/dL HCT 29.8 (L) 35.7 - 45.2 % MCV 97.1 (H) 80.6 - 95.5 fL MCH 31.9 25.9 - 32.8 pg MCHC 32.9 31.6 - 35.1 g/dL RDW-SD 47.2 39.0 - 49.9 fL RDW-CV 13.2 12.0 - 15.5 % PLT 268 166 - 358 10*3/L MPV 8.7 (L) 9.5 - 12.9 fL NRBC/100 WBC 0.0 0.0 - 10.0 /100 WBCs NRBC x10^3 <0.01 10*3/L GRAN MAT (NEUT) % 78.4 % IMM GRAN % 0.50 % LYMPH % 12.5 % MONO % 6.1 % EOS % 2.1 % BASO % 0.4 % GRAN MAT x10^3(ANC) 6.43 1.88 - 7.09 10*3/uL IMM GRAN x10^3 0.04 0.00 - 0.06 10*3/uL LYMPH x10^3 1.02 (L) 1.32 - 3.29 10*3/uL MONO x10^3 0.50 0.33 - 0.92 10*3/uL EOS x10^3 0.17 0.03 - 0.39 10*3/uL BASO x10^3 0.03 0.01 - 0.07 10*3/uL MAGNESIUM Collection Time: 02/03/20 3:45 AM Result Value Ref Range MAGNESIUM 1.7 1.7 - 2.4 mg/dL PHOSPHORUS Collection Time: 02/03/20 3:45 AM Result Value Ref Range PHOSPHORUS 4.1 2.5 - 5.0 mg/dL CREATINE KINASE Collection Time: 02/03/20 3:45 AM Result Value Ref Range CK 21 (L) 33 - 194 U/L URIC ACID Collection Time: 02/03/20 3:45 AM Result Value Ref Range URIC ACID 3.4 2.9 - 6.0 mg/dL N-TERMINAL PRO-BNP Collection Time: 02/03/20 3:45 AM Result Value Ref Range NT-proBNP 850 (H) <=125 pg/mL AMMONIA, PLASMA Collection Time: 02/03/20 12:06 PM Result Value Ref Range AMMONIA <9 (L) 9 - 33 umol/L Intake/Output Summary (Last 24 hours) at 02/03/2020 1309 Last data filed at 02/03/2020 0635 Gross per 24 hour Intake 720 ml Output 2200 ml Net -1480 ml Weight History: Wt Readings from Last 10 Encounters: 02/03/20 80.5 kg (177 lb 6.4 oz) 12/18/19 77.1 kg (170 lb) 08/21/19 86.2 kg (190 lb) 06/25/19 88.5 kg (195 lb) 06/19/19 88.5 kg (195 lb) 05/19/19 81.6 kg (180 lb) 02/23/19 83.9 kg (185 lb) 02/07/19 74.8 kg (165 lb) 01/23/19 74.8 kg (165 lb) 01/05/19 74.8 kg (165 lb) Current Dietary Order(s): PATIENT FOOD PREFERENCES GI Soft ([place]), Low Residue Diet; Texture: Regular Nutrition/Additional History: Patient was more awake today at visit. She reports some nausea/ abdominal pain/ cramping; RN aware. Ms. Aleman only had a couple bites of breakfast, but requested grilled cheese/ applesauce/ jello forlunch. RD reviewed patient's labs, and will continue to monitor. Calculated Daily Nutritional Needs: Calories: 1600 kcal/day = 20 kcal/kg current wt = 35 kcal/kg IBW = MSJ x 1.2 Protein: 16% of kcal need/day = 65 g/day = 0.8 g/kg current wt = 1.4 g/kg IBW Fluid: 1600 mL/day or per MD; adjust per acute needs Nutrition Diagnosis: PES #1: Inadequate oral intakerelated to withdrawal symptoms/ AMSas evidenced by patient eating less than 75% of estimated energy requirements Nutrition Intervention(s): Interventions: 1. Recommend continue the current diet order as tolerated per MD/ DIELECTRIC TESTER - if unable to tolerate consider low fat options 2. Recommend DIELECTRIC TESTER evaluate patient 3. Ensure Enlive PRN if intake is poor, as tolerated 4. Continue feeding assistance 5. Recommend daily weights 6. Will monitor diet tolerance, intake, GI function, weight trends, and nutrition related labs Goals: 1. The pt's documented intake is no less than 75% of provided meals (not progressing as expected) 2. Weight maintenance while inpatient Nutrition Monitoring and Evaluation: A registered dietitian will f/u as indicated to report nutrition related information and to revise the recommended nutrition intervention(s). Please call with questions or concerns, thank-you. Anticipated d/c needs: Low fat diet Nancy Burch RD, LD Clinical Dietitian Office: [phone] Kenroy Hawkins MD - 02/03/2020 12:49 PM CDT Gastroenterology Progress Note- Inpatient Date of Service: 02/03/2020 SUBJECTIVE: More awake today. Knows that she in [facility]. CURRENT MEDICATIONS - reviewed. PHYSICAL EXAM: Vitals: 02/03/20 0728 02/03/20 0804 02/03/20 1017 02/03/20 1133 BP: (!) 158/98 (!) 157/113 Pulse: 63 61 Resp: 18 18 Temp: 37.1 C (98.7 F) 35.1 C (95.2 F) TempSrc: SpO2: 100% 95% 98% 96% Weight: General: alert and oriented x 2; no apparent distress HEENT: pupils equal, round, reactive to light; extraocular movements intact; oropharynx clear; moistmucous membranes Lungs: clear to auscultation bilaterally Cardio: S1, S2 normal; no murmurs, rubs or gallops Abdomen: soft; non-tender; non-distended; normoactive bowel sounds Extremities: no cyanosis, clubbing or edema Neuro: Lethargic. Decreased strength. No asterixis LABORATORY CBC BMP LFT/A/L WBC (10*3/L) Date Value 02/03/2020 8.19 NA (mmol/L) Date Value 02/03/2020 136 ALBUMIN (g/dL) Date Value 02/03/2020 3.5 RBC (10*6/L) Date Value 02/03/2020 3.07 (L) K (mmol/L) Date Value 02/03/2020 3.6 T PROTEIN (g/dL) Date Value 02/03/2020 6.6 PLT (10*3/L) Date Value 02/03/2020 268 CL (mmol/L) Date Value 02/03/2020 104 TOTAL BILI (mg/dL) Date Value 02/03/2020 1.0 HGB (g/dL) Date Value 02/03/2020 9.8 (L) CO2 TOTAL (mmol/L) Date Value 02/03/2020 28 BILI UNCON (mg/dL) Date Value 01/31/2020 0.4 HCT (%) Date Value 02/03/2020 29.8 (L) BUN (mg/dL) Date Value 02/03/2020 7 BILI CONJ (mg/dL) Date Value 01/31/2020 0.0 MCV (fL) Date Value 02/03/2020 97.1 (H) CREATININE (mg/dL) Date Value 02/03/2020 0.61 ALT(SGPT) (U/L) Date Value 01/05/2019 95 (H) ALTv (U/L) Date Value 02/03/2020 131 (H) GLUCOSE (mg/dL) Date Value 02/03/2020 138 (H) AST(SGOT) (U/L) Date Value 02/03/2020 49 (H) ALK PHOS (U/L) Date Value 02/03/2020 584 (H) JORGE (U/L) Date Value 02/12/2015 64 LIPASE (U/L) Date Value 02/02/2020 203 PT/INR PROTIME PATIENT (Seconds) Date Value 02/02/2020 12.7 INR (no units) Date Value 02/02/2020 1.0 ASSESSMENT/PLAN Yessenia Aleman is a 59 year old female with PMH as listed above, admitted to the hospital with: 1. Encephalopathy of unclear etiology , improving slowly. Continue lactulose. Need to elucidate her liver pathology by reviewing outpatient workup/FU with acid retort operator after discharge.AMA, ceruloplasmin pending. 2. LOLLY, resolved. 3. Macrocytic anemia , likely B12 deficiency 4. Baseline psychiatric issues Kenroy Hawkins MD 02/03/2020 12:55 PM Alex Mcknight MD - 02/03/2020 9:00 AM CDT [facility] Hospitalist Progress Note SUBJECTIVE: Mental status slightly better today. But not at baseline. More alert than admission. Cannot really move his upper extremities No chest pain, headache, n/v, abd pain Still somnolent at times BP uncontrolled but much better than admission CURRENT MEDICATIONS - reviewed. Current Facility-Administered Medications Medication Dose Route Frequency Last Rate Last Dose docusate (COLACE) capsule 100 mg 100 mg Oral DAILY 100 mg at 02/03/20 1233 magnesium oxide (MAG-OX 400) tablet 400 mg 400 mg Oral DAILY 400 mg at 02/03/20 1233 sennosides (SENOKOT) tablet 8.6 mg 8.6 mg Oral DAILY 8.6 mg at 02/03/20 1233 amLODIPine (NORVASC) tablet 10 mg 10 mg Oral DAILY 10 mg at 02/03/20 0908 labetaloL (NORMODYNE) injection 10 mg 10 mg Slow IV Push Q4HPRN 10 mg at 02/03/20 0342 lactulose (CEPHULAC) solution 15 mL 15 mL Oral QID 15 mL at 02/03/20 1231 ndiqfb-bsgphfdq-ksjvkic (PANCREAZE) 16,800-56,800- 98,400 unit capsule 1 capsule 1 capsule OralTID MEALS 1 capsule at 02/03/20 1231 losartan (COZAAR) tablet 100 mg 100 mg Oral DAILY 100 mg at 02/03/20 0908 cyanocobalamin (VITAMIN B12) injection 1,000 mcg 1,000 mcg Subcutaneous Q24H 1,000 mcg at 02/03/20 0907 hydralAZINE (APRESOLINE) injection 10 mg 10 mg Slow IV Push Q4HPRN 10 mg at 02/02/20 1707 enoxaparin (LOVENOX) injection 30 mg 30 mg Subcutaneous DAILY 30 mg at 02/03/20 0907 PHYSICAL EXAM: BP (!) 157/113 | Pulse 61 | Temp 35.1 C (95.2 F) | Resp 18 | Wt 80.5 kg (177 lb 6.4 oz) | SpO2 96% | BMI 34.65 kg/m General: No respiratory distress HEENT: Anicteric sclerae, NCAT Good air entry b/l RRR Abdomen: Soft, NTND Skin: warm and dry Neuro: AAO to self, still confused, upper extremity patient cannot move much b/l; can move lower extremity but weakness b/l LABS/IMAGING - reviewed, pertinent results as below: CBC BMP PT/INR WBC (10*3/L) Date Value 02/03/2020 8.19 NA (mmol/L) Date Value 02/03/2020 136 No results found for: PT RBC (10*6/L) Date Value 02/03/2020 3.07 (L) K (mmol/L) Date Value 02/03/2020 3.6 INR (no units) Date Value 02/02/2020 1.0 PLT (10*3/L) Date Value 02/03/2020 268 CALCIUM (mg/dL) Date Value 02/03/2020 9.2 HGB (g/dL) Date Value 02/03/2020 9.8 (L) CL (mmol/L) Date Value 02/03/2020 104 aPTT HCT (%) Date Value 02/03/2020 29.8 (L) BUN (mg/dL) Date Value 02/03/2020 7 APTT Patient (Seconds) Date Value 08/21/2019 30 CREATININE (mg/dL) Date Value 02/03/2020 0.61 IMAGING- Hospital Encounter on 01/31/20 US ABDOMEN COMPLETE Narrative RIGHT UPPER QUADRANT ABDOMINAL SONOGRAM TECHNIQUE: Grayscale and limited color Doppler images of the right upper quadrant of the abdomen were obtained. INDICATION: Transaminitis and acute renal failure. COMPARISON: 12/18/2019 FINDINGS: Limited exam due to patient body habitus and inability to cooperate during the exam. Liver measures 13.3 cm in craniocaudal dimension. No focal hepatic lesions identified to the extent visualized (exam limited by rib shadowing). Main portal vein demonstrates normal hepatopedal flow. Main portal vein measures 0.8 cm in AP diameter at [place] hepatis. Gallbladder is not visualized (surgically absent). CBD measures 4 mm in AP diameter at [place] hepatis, normal. No discernible intrahepatic or extrahepatic biliary ductal dilatation. Right kidney measures 10.3 x 4.5 x 5.2 cm. Left kidney measures 11.2 x 4.9 x 4.6 cm. No hydronephrosis or nephrolithiasis. Preservation of normal corticomedullary differentiation. No appreciable atrophy or cortical thinning. Enlarged spleen measures 14.5 cm and clinical dimension. Visualized portions of the pancreatic head appear unremarkable. Majority of the pancreatic body, tail and uncinate process is obscured by bowel gas and/or not well seen. Proximal abdominal aorta measures 2.4 cm in AP diameter, normal. No abnormal dilatation within the mid or distal abdominal aorta. Results portions of the IVC appear unremarkable. Impression No sonographic findings to explain patient's transaminitis. Status post cholecystectomy. Normal sonographic appearance of bilateral kidneys. No appreciable atrophy or cortical thinning. No hydronephrosis. CT Head W/O Contrast Narrative Exam: CT HEAD WO CONTRAST Clinical History: Altered mental status (AMS), unclear cause Technique:Thin section CT brain with multiplanar reformats Comparison: CT brain dated 01/02/2019 Findings: Brainstem, cerebellum are within normal limits. Ventricles are normal. There are no extra-axial collections. There is no evidence of intracranial hemorrhage. No focal mass, midline shift, mass effect is identified. Several hemispheres are within normal limits. Aspect score: 10. Basal cisterns are normal. Bone windows demonstrate a normal appearance of the skull base. Minimal fluid is noted in the right mastoid air cells. The paranasal sinuses are within normal limits. Included portions of the orbits are normal. The cranium is within normal limits without evidence for fracture. Impression Impression: 1. No acute intracranial process. 2. Small right mastoid effusion. Chest 1 View Narrative Chest, one view History: AMS . Altered state of awareness Ordering Physician: KIRSTIN RON Findings: The lungs are clear without focal pneumonic consolidation, pleural effusion, or pneumothorax. The heart size is normal. The mediastinal contours are normal. No pulmonary edema. Several scattered calcified granulomas noted within both lungs. Impression Impression: No acute cardiopulmonary disease. RL: 2601 AFC: [id number] Abdomen 1 View Narrative CLINICAL INFORMATION: Abdominal pain. Altered state of awareness Ordering Physician: KIRSTIN RON FINDINGS: Supine view of the abdomen was submitted on 3 separate images. Small amount of gas within the stomach. Bladder surgically absent. Gas and stool noted in the colon. No dilated loops of small bowel. Impression 1. Nonobstructive intestinal bowel gas pattern. RL: 2601 AFC: [id number] SSMENT/PLAN Yessenia Aleman is a 59 year old female with PMH as listed above, admitted to the hospital with: Toxic encephalopathy likely 2/2 lithium toxicity. Mental status and neuro symptoms very very slowly improving and still far from baseline Presents with stupor-like state, tremor and clonus. Alert and follows commands. Moving all extremities spontaneously. CTH neg. Ammonia level normal (hx of PBC). ABG showed metabolic acidosis. [place] level 1.4 on admission and now less than 0.4, normalized. Holding all sedative meds: hydrocodone, gabapentin, tizanidine, seroquel, librium Patient has significant neurological findings including confusion and bilateral upper extremity weakness and numbness, not able to move, left worse than right. CT head done on admission [facility] does not have neurology consultation and MRI. Will transfer to [facility] for MRI Abe and MRI thoracic/lumbar as well as neurology consultation as symptoms not improving. Also might consider LP. Discussed plan of care with patient and at bedside and ok with it. LOLLY. Resolved with IVf. Creatinine > 2 on admision. Now about 0.55 Due to severe dehydration. Recently taken to detox center for opioid withdrawal symptoms. Stopped IVF on 02/02/[address] Valle Clark catheter to track urine output GPC bacteremia - likely contaminant IV vancomycin empiric day 2 - d/c abx on 02/02/2020 F/u blood cx Repeat blood cutlures on 02/01 - 1 out of [address] Burton Repeat blood cultures ordered on 02/02 Procal normal Currently not on abx Cholestasis, transaminitis. 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 Holding pain medication Anxiety insmonia neuoprathy 2/ spinal spondylosis Was on depakoate, seroquel, gabapentin Depakote levels normal Hold psych meds due to somnolence and neuro symptoms Hypertension, uncontrolled Hypertensive urgency resolved Resume losartan 100 mg qd. 02/01 - started norvasc 10 mg qd Hydralazine iv prn If continues to be elevated, start hydralazine 50 mg BID Unclear home meds I have asked RN to get all home medication bottles from home per family so we can review Prophylaxis: DVT- enoxaparin Stress Ulcer: no indication for prophylaxis Code Status: Full Disposition: will benefit from SNF placement when neuro work up complete SW and PT consult Sarmad Finnegan DO - 02/03/2020 7:26 AM CDT Nephrology Progress Note Admit Date: 01/31/2020 CPS stable without CP or SOB. No acute events overnight. Limited IH/ ROS due to AMS though mental status better this morning. Temp: [35.1 C (95.2 F)-37.1 C (98.7 F)] Pulse: [61-79] Resp: [16-18] BP: (109-169)/(84-117) MAP (mmHg): [115-131] Vitals and medications reviewed in the chart. Blood work and imaging reviewed in the chart. PE: Gen: NAD HEENT: NCAT. MMM. Neck: Supple. No LAD. Lungs: Diminished. Poor effort. CVS: RRR Abd: Soft. NT. +BS Ext: No C/C. LE Edema trace. Skin: No rash Psych: Awake Neuro: Minimal speech. ASSESSMENT/PLAN Yessenia Aleman is a 59 year old female with PMH as listed above, admitted to the hospital with: The primary encounter diagnosis was Altered mental status, unspecified altered mental status type. Diagnoses of Acute kidney injury, Obesity (BMI 30-39.9), Biliary disease, Transaminitis, Chronic pancreatitis, unspecified pancreatitis type, Metabolic acidosis, Elevated liver enzymes, and Acute cystitis without hematuria were also pertinent to this visit. A/ LOLLY improved Acidosis Proteinuria [place] toxicity improved HTN Anemia in chronic illness Acute hepatitis/ Pancreatitis Toxic metabolic encephalopathy likely due to opiate withdrawal P/ Continue current POC and Medications other than changes listed below. Please see chart and orders for complete details. IVF as needed. Replete potassium prn. Encourage nutrition as tolerated. No NSAIDs. AM labs. Daily weight. 02/03/20 0316 Weight: 80.5 kg (177 lb 6.4 oz) Vitals: 02/03/20 0804 02/03/20 1017 02/03/20 1133 02/03/20 1925 BP: (!) 157/113 (!) 167/117 Patient Position: Sitting BP CUFF SIZE: Adult Large Pulse: 61 79 Resp: 18 16 Temp: 35.1 C (95.2 F) 36.6 C (97.8 F) TempSrc: Oral SpO2: 95% 98% 96% 98% Weight: Intake/Output Summary (Last 24 hours) at 02/02/20208 Last data filed at 02/02/2020 1840 Gross per 24 hour Intake 100 ml Output 2500 ml Net -2400 ml Hospital Encounter on 01/31/20 US ABDOMEN COMPLETE Narrative RIGHT UPPER QUADRANT ABDOMINAL SONOGRAM TECHNIQUE: Grayscale and limited color Doppler images of the right upper quadrant of the abdomen were obtained. INDICATION: Transaminitis and acute renal failure. COMPARISON: 12/18/2019 FINDINGS: Limited exam due to patient body habitus and inability to cooperate during the exam. Liver measures 13.3 cm in craniocaudal dimension. No focal hepatic lesions identified to the extent visualized (exam limited by rib shadowing). Main portal vein demonstrates normal hepatopedal flow. Main portal vein measures 0.8 cm in AP diameter at [place] hepatis. Gallbladder is not visualized (surgically absent). CBD measures 4 mm in AP diameter at [place] hepatis, normal. No discernible intrahepatic or extrahepatic biliary ductal dilatation. Right kidney measures 10.3 x 4.5 x 5.2 cm. Left kidney measures 11.2 x 4.9 x 4.6 cm. No hydronephrosis or nephrolithiasis. Preservation of normal corticomedullary differentiation. No appreciable atrophy or cortical thinning. Enlarged spleen measures 14.5 cm and clinical dimension. Visualized portions of the pancreatic head appear unremarkable. Majority of the pancreatic body, tail and uncinate process is obscured by bowel gas and/or not well seen. Proximal abdominal aorta measures 2.4 cm in AP diameter, normal. No abnormal dilatation within the mid or distal abdominal aorta. Results portions of the IVC appear unremarkable. Impression No sonographic findings to explain patient's transaminitis. Status post cholecystectomy. Normal sonographic appearance of bilateral kidneys. No appreciable atrophy or cortical thinning. No hydronephrosis. CT Head W/O Contrast Narrative Exam: CT HEAD WO CONTRAST Clinical History: Altered mental status (AMS), unclear cause Technique:Thin section CT brain with multiplanar reformats Comparison: CT brain dated 01/02/2019 Findings: Brainstem, cerebellum are within normal limits. Ventricles are normal. There are no extra-axial collections. There is no evidence of intracranial hemorrhage. No focal mass, midline shift, mass effect is identified. Several hemispheres are within normal limits. Aspect score: 10. Basal cisterns are normal. Bone windows demonstrate a normal appearance of the skull base. Minimal fluid is noted in the right mastoid air cells. The paranasal sinuses are within normal limits. Included portions of the orbits are normal. The cranium is within normal limits without evidence for fracture. Impression Impression: 1. No acute intracranial process. 2. Small right mastoid effusion. Chest 1 View Narrative Chest, one view History: AMS . Altered state of awareness Ordering Physician: KIRSTIN RON Findings: The lungs are clear without focal pneumonic consolidation, pleural effusion, or pneumothorax. The heart size is normal. The mediastinal contours are normal. No pulmonary edema. Several scattered calcified granulomas noted within both lungs. Impression Impression: No acute cardiopulmonary disease. RL: 2601 AFC: [id number] Abdomen 1 View Narrative CLINICAL INFORMATION: Abdominal pain. Altered state of awareness Ordering Physician: KIRSTIN RON FINDINGS: Supine view of the abdomen was submitted on 3 separate images. Small amount of gas within the stomach. Bladder surgically absent. Gas and stool noted in the colon. No dilated loops of small bowel. Impression 1. Nonobstructive intestinal bowel gas pattern. RL: 2601 AFC: [id number] Recent Results (from the past 48 hour(s)) COMP. METABOLIC PANEL (39187) Collection Time: 02/02/20 3:21 AM Result Value Ref Range NA 129 (L) 135 - 145 mmol/L K 3.0 (L) 3.5 - 5.0 mmol/L CL 100 98 - 108 mmol/L CO2 TOTAL 22 (L) 23 - 31 mmol/L AGAP 7 2 - 16 BUN 8 7 - 23 mg/dL GLUCOSE 632 (HH) 70 - 110 mg/dL CREATININE 0.54 0.50 - 1.04 mg/dL TOTAL BILI 1.0 0.1 - 1.1 mg/dL CALCIUM 7.9 (L) 8.6 - 10.6 mg/dL T PROTEIN 5.3 (L) 6.3 - 8.2 g/dL ALBUMIN 2.7 (L) 3.5 - 5.0 g/dL ALK PHOS 562 (H) 34 - 122 U/L ALTv 138 (H) 5 - 35 U/L AST(SGOT) 61 (H) 13 - 40 U/L eGFR Calculation (Non-) 116.4 mL/min/1.73m2 eGFR Calculation () 141.0 mL/min/1.73m2 CBC WITH DIFF Collection Time: 02/02/20 3:21 AM Result Value Ref Range WBC 6.58 4.30 - 11.10 10*3/L RBC 2.63 (L) 3.93 - 5.25 10*6/L HGB 8.2 (L) 11.6 - 15.0 g/dL HCT 26.3 (L) 35.7 - 45.2 % MCV 100.0 (H) 80.6 - 95.5 fL MCH 31.2 25.9 - 32.8 pg MCHC 31.2 (L) 31.6 - 35.1 g/dL RDW-SD 47.2 39.0 - 49.9 fL RDW-CV 13.1 12.0 - 15.5 % PLT 201 166 - 358 10*3/L MPV 9.7 9.5 - 12.9 fL NRBC/100 WBC 0.0 0.0 - 10.0 /100 WBCs NRBC x10^3 <0.01 10*3/L GRAN MAT (NEUT) % 78.6 % IMM GRAN % 0.50 % LYMPH % 13.1 % MONO % 5.5 % EOS % 2.0 % BASO % 0.3 % GRAN MAT x10^3(ANC) 5.18 1.88 - 7.09 10*3/uL IMM GRAN x10^3 0.03 0.00 - 0.06 10*3/uL LYMPH x10^3 0.86 (L) 1.32 - 3.29 10*3/uL MONO x10^3 0.36 0.33 - 0.92 10*3/uL EOS x10^3 0.13 0.03 - 0.39 10*3/uL BASO x10^3 <0.03 0.01 - 0.07 10*3/uL LIPASE Collection Time: 02/02/20 3:21 AM Result Value Ref Range LIPASE 140 0 - 220 U/L LITHIUM Collection Time: 02/02/20 3:21 AM Result Value Ref Range [place] 0.5 (L) 0.6 - 1.2 mmol/L GLYCOSYLATED HEMOGLOBIN (A1C) Collection Time: 02/02/20 3:21 AM Result Value Ref Range HGB A1C 4.5 4.0 - 6.0 % POCT GLUCOSE (AUTOMATED) Collection Time: 02/02/20 6:24 AM Result Value Ref Range POCT GLU 138 (H) 70 - 110 mg/dL LITHIUM Collection Time: 02/02/20 6:31 AM Result Value Ref Range [place] 0.4 (L) 0.6 - 1.2 mmol/L LIPASE Collection Time: 02/02/20 6:31 AM Result Value Ref Range LIPASE 203 0 - 220 U/L COMP. METABOLIC PANEL ([id number]) Collection Time: 02/02/20 6:31 AM Result Value Ref Range NA 135 135 - 145 mmol/L K 3.5 3.5 - 5.0 mmol/L CL 103 98 - 108 mmol/L CO2 TOTAL 25 23 - 31 mmol/L AGAP 7 2 - 16 BUN 8 7 - 23 mg/dL GLUCOSE 148 (H) 70 - 110 mg/dL CREATININE 0.55 0.50 - 1.04 mg/dL TOTAL BILI 1.2 (H) 0.1 - 1.1 mg/dL CALCIUM 9.4 8.6 - 10.6 mg/dL T PROTEIN 6.9 6.3 - 8.2 g/dL ALBUMIN 3.6 3.5 - 5.0 g/dL ALK PHOS 723 (H) 34 - 122 U/L ALTv 166 (H) 5 - 35 U/L AST(SGOT) 72 (H) 13 - 40 U/L eGFR Calculation (Non-) 113.9 mL/min/1.73m2 eGFR Calculation () 138.1 mL/min/1.73m2 LIPID PANEL ([id number])(TOTAL CHOLESTEROL, TRIGLYCERIDES, HDL) Collection Time: 02/02/20 6:31 AM Result Value Ref Range CHOL 343 (H) 120 - 200 mg/dL HDL 87 >50 mg/dL HDLC RATIO 3.9 <=4.5 TRIG 131 30 - 170 mg/dL LDL CHOL 230 (H) <=160 mg/dL VLDL 26 5 - 60 mg/dL CREATINE KINASE Collection Time: 02/02/20 6:31 AM Result Value Ref Range CK 37 33 - 194 U/L PROCALCITONIN Collection Time: 02/02/20 2:58 PM Result Value Ref Range Procalcitonin 0.05 <0.07 ng/mL PROTHROMBIN TIME / INR Collection Time: 02/02/20 2:58 PM Result Value Ref Range PROTIME PATIENT 12.7 12.0 - 14.7 Seconds INR 1.0 BLOOD CULTURE SCREEN Collection Time: 02/02/20 2:58 PM Specimen: VENOUS; Blood Result Value Ref Range Blood Culture-Aerobic (AA) No growth Culture positive. See Blood Culture Workup for additional information. Blood Culture-Anaerobic Culture In Progress No growth HEPATITIS B SURFACE ANTIBODY Collection Time: 02/02/20 2:58 PM Specimen: ARM, LEFT; Blood Result Value Ref Range HBsAB Negative HBsAb Semi-Quantitative 0.00 mIU/mL HEPATITIS B SURFACE ANTIGEN Collection Time: 02/02/20 2:58 PM Specimen: ARM, LEFT; Blood Result Value Ref Range HBsAg Negative Negative HBsAg Semi-Quantitative 0.14 HAV ANTIBODY (IGG AND IGM) Collection Time: 02/02/20 2:58 PM Specimen: ARM, LEFT; Blood Result Value Ref Range HAV Total Positive HAVT Semi-Quantitative 0.01 HCV ANTIBODY Collection Time: 02/02/20 2:58 PM Result Value Ref Range HCV Ab Negative HCV Semi-Quantitative 0.02 VALPROIC ACID, FREE Collection Time: 02/02/20 2:58 PM Result Value Ref Range Valproic Acid, Free <2.0 (L) 4.0 - 15.0 ug/mL VALPROIC ACID, TOTAL Collection Time: 02/02/20 2:58 PM Result Value Ref Range VALPROIC A <10 (L) 50 - 100 ug/mL CERULOPLASMIN Collection Time: 02/02/20 2:58 PM Result Value Ref Range CERULO 55 25 - 63 mg/dL ANTI-NUCLEAR ANTIBODY SCREEN Collection Time: 02/02/20 2:58 PM Result Value Ref Range LESLY Negative Negative BLOOD CULTURE WORKUP Collection Time: 02/02/20 2:58 PM Specimen: VENOUS; Blood Result Value Ref Range Gram stain Isolated from aerobic bottle Gram positive cocci BLOOD CULTURE SCREEN Collection Time: 02/02/20 3:19 PM Specimen: VENOUS; Blood Result Value Ref Range Blood Culture-Aerobic No growth at 24 hours No growth Blood Culture-Anaerobic No growth at 24 hours No growth COMP. METABOLIC PANEL ([id number]) Collection Time: 02/03/20 3:45 AM Result Value Ref Range NA 136 135 - 145 mmol/L K 3.6 3.5 - 5.0 mmol/L CL 104 98 - 108 mmol/L CO2 TOTAL 28 23 - 31 mmol/L AGAP 4 2 - 16 BUN 7 7 - 23 mg/dL GLUCOSE 138 (H) 70 - 110 mg/dL CREATININE 0.61 0.50 - 1.04 mg/dL TOTAL BILI 1.0 0.1 - 1.1 mg/dL CALCIUM 9.2 8.6 - 10.6 mg/dL T PROTEIN 6.6 6.3 - 8.2 g/dL ALBUMIN 3.5 3.5 - 5.0 g/dL ALK PHOS 584 (H) 34 - 122 U/L ALTv 131 (H) 5 - 35 U/L AST(SGOT) 49 (H) 13 - 40 U/L eGFR Calculation (Non-) 101.1 mL/min/1.73m2 eGFR Calculation () 122.5 mL/min/1.73m2 CBC WITH DIFF Collection Time: 02/03/20 3:45 AM Result Value Ref Range WBC 8.19 4.30 - 11.10 10*3/L RBC 3.07 (L) 3.93 - 5.25 10*6/L HGB 9.8 (L) 11.6 - 15.0 g/dL HCT 29.8 (L) 35.7 - 45.2 % MCV 97.1 (H) 80.6 - 95.5 fL MCH 31.9 25.9 - 32.8 pg MCHC 32.9 31.6 - 35.1 g/dL RDW-SD 47.2 39.0 - 49.9 fL RDW-CV 13.2 12.0 - 15.5 % PLT 268 166 - 358 10*3/L MPV 8.7 (L) 9.5 - 12.9 fL NRBC/100 WBC 0.0 0.0 - 10.0 /100 WBCs NRBC x10^3 <0.01 10*3/L GRAN MAT (NEUT) % 78.4 % IMM GRAN % 0.50 % LYMPH % 12.5 % MONO % 6.1 % EOS % 2.1 % BASO % 0.4 % GRAN MAT x10^3(ANC) 6.43 1.88 - 7.09 10*3/uL IMM GRAN x10^3 0.04 0.00 - 0.06 10*3/uL LYMPH x10^3 1.02 (L) 1.32 - 3.29 10*3/uL MONO x10^3 0.50 0.33 - 0.92 10*3/uL EOS x10^3 0.17 0.03 - 0.39 10*3/uL BASO x10^3 0.03 0.01 - 0.07 10*3/uL MAGNESIUM Collection Time: 02/03/20 3:45 AM Result Value Ref Range MAGNESIUM 1.7 1.7 - 2.4 mg/dL PHOSPHORUS Collection Time: 02/03/20 3:45 AM Result Value Ref Range PHOSPHORUS 4.1 2.5 - 5.0 mg/dL CREATINE KINASE Collection Time: 02/03/20 3:45 AM Result Value Ref Range CK 21 (L) 33 - 194 U/L URIC ACID Collection Time: 02/03/20 3:45 AM Result Value Ref Range URIC ACID 3.4 2.9 - 6.0 mg/dL N-TERMINAL PRO-BNP Collection Time: 02/03/20 3:45 AM Result Value Ref Range NT-proBNP 850 (H) <=125 pg/mL AMMONIA, PLASMA Collection Time: 02/03/20 12:06 PM Result Value Ref Range AMMONIA <9 (L) 9 - 33 umol/L Current Facility-Administered Medications Medication Dose Route Frequency Last Rate Last Dose docusate (COLACE) capsule 100 mg 100 mg Oral DAILY 100 mg at 02/03/20 1233 [START ON 02/04/2020] lactulose (CEPHULAC) solution 15 mL 15 mL Oral BID magnesium oxide (MAG-OX 400) tablet 400 mg 400 mg Oral DAILY 400 mg at 02/03/20 1233 sennosides (SENOKOT) tablet 8.6 mg 8.6 mg Oral DAILY 8.6 mg at 02/03/20 1233 amLODIPine (NORVASC) tablet 10 mg 10 mg Oral DAILY 10 mg at 02/03/20 0908 labetaloL (NORMODYNE) injection 10 mg 10 mg Slow IV Push Q4HPRN 10 mg at 02/03/20 0342 gcxjww-rqkiwtjn-ghokxuz (PANCREAZE) 16,800-56,800- 98,400 unit capsule 1 capsule 1 capsule OralTID MEALS 1 capsule at 02/03/20 1231 losartan (COZAAR) tablet 100 mg 100 mg Oral DAILY 100 mg at 02/03/20 0908 cyanocobalamin (VITAMIN B12) injection 1,000 mcg 1,000 mcg Subcutaneous Q24H 1,000 mcg at 02/03/20 0907 hydralAZINE (APRESOLINE) injection 10 mg 10 mg Slow IV Push Q4HPRN 10 mg at 02/02/20 1707 enoxaparin (LOVENOX) injection 30 mg 30 mg Subcutaneous DAILY 30 mg at 02/03/20 09 Alex Garcia MD - 02/02/2020 1:55 PM CDT [facility] Hospitalist Progress Note SUBJECTIVE: Mental status slightly better today. No chest pain, headache, n/v, abd pain Still somnolent BP uncontrolled CURRENT MEDICATIONS - reviewed. Current Facility-Administered Medications Medication Dose Route Frequency Last Rate Last Dose diltiazem (CARDIZEM IV) injection 5 mg 5 mg Slow IV Push PRN 5 mg at 02/02/20 0654 cyanocobalamin (VITAMIN B12) injection 1,000 mcg 1,000 mcg Subcutaneous Q24H 1,000 mcg at 02/02/20 0930 D5W 0.45% NaCl (1/2NS) IV infusion 1,000 mL 1,000 mL IV Infusion CONTINUOUS 150 mL/hr at 02/02/20 0313 1,000 mL at 02/02/20 0313 hydralAZINE (APRESOLINE) injection 10 mg 10 mg Slow IV Push Q4HPRN 10 mg at 02/02/20 1118 vancomycin 1250 mg in NS 250 mL RTU IV Piggyback 1,250 mg 15 mg/kg IV Piggyback Q24H ABX 1,250 mg at 02/01/20 1918 enoxaparin (LOVENOX) injection 30 mg 30 mg Subcutaneous DAILY 30 mg at 02/02/20 0930 PHYSICAL EXAM: BP (!) 191/111 | Pulse 74 | Temp 36.9 C (98.5 F) | Resp 18 | Wt 82.5 kg (181 lb 12.8 oz) | SpO2 100% | BMI 35.51 kg/m General: No respiratory distress HEENT: Anicteric sclerae, NCAT Lungs: Symmetric expansion RRR Abdomen: Soft, NTND Skin: warm and dry Neuro: AAO to self, still confused, no focal deficits LABS/IMAGING - reviewed, pertinent results as below: CBC BMP PT/INR WBC (10*3/L) Date Value 02/02/2020 6.58 NA (mmol/L) Date Value 02/02/2020 135 No results found for: PT RBC (10*6/L) Date Value 02/02/2020 2.63 (L) K (mmol/L) Date Value 02/02/2020 3.5 INR (no units) Date Value 08/21/2019 1.0 PLT (10*3/L) Date Value 02/02/2020 201 CALCIUM (mg/dL) Date Value 02/02/2020 9.4 HGB (g/dL) Date Value 02/02/2020 8.2 (L) CL (mmol/L) Date Value 02/02/2020 103 aPTT HCT (%) Date Value 02/02/2020 26.3 (L) BUN (mg/dL) Date Value 02/02/2020 8 APTT Patient (Seconds) Date Value 08/21/2019 30 CREATININE (mg/dL) Date Value 02/02/2020 0.55 IMAGING- Hospital Encounter on 01/31/20 US ABDOMEN COMPLETE Narrative RIGHT UPPER QUADRANT ABDOMINAL SONOGRAM TECHNIQUE: Grayscale and limited color Doppler images of the right upper quadrant of the abdomen were obtained. INDICATION: Transaminitis and acute renal failure. COMPARISON: 12/18/2019 FINDINGS: Limited exam due to patient body habitus and inability to cooperate during the exam. Liver measures 13.3 cm in craniocaudal dimension. No focal hepatic lesions identified to the extent visualized (exam limited by rib shadowing). Main portal vein demonstrates normal hepatopedal flow. Main portal vein measures 0.8 cm in AP diameter at [place] hepatis. Gallbladder is not visualized (surgically absent). CBD measures 4 mm in AP diameter at [place] hepatis, normal. No discernible intrahepatic or extrahepatic biliary ductal dilatation. Right kidney measures 10.3 x 4.5 x 5.2 cm. Left kidney measures 11.2 x 4.9 x 4.6 cm. No hydronephrosis or nephrolithiasis. Preservation of normal corticomedullary differentiation. No appreciable atrophy or cortical thinning. Enlarged spleen measures 14.5 cm and clinical dimension. Visualized portions of the pancreatic head appear unremarkable. Majority of the pancreatic body, tail and uncinate process is obscured by bowel gas and/or not well seen. Proximal abdominal aorta measures 2.4 cm in AP diameter, normal. No abnormal dilatation within the mid or distal abdominal aorta. Results portions of the IVC appear unremarkable. Impression No sonographic findings to explain patient's transaminitis. Status post cholecystectomy. Normal sonographic appearance of bilateral kidneys. No appreciable atrophy or cortical thinning. No hydronephrosis. CT Head W/O Contrast Narrative Exam: CT HEAD WO CONTRAST Clinical History: Altered mental status (AMS), unclear cause Technique:Thin section CT brain with multiplanar reformats Comparison: CT brain dated 01/02/2019 Findings: Brainstem, cerebellum are within normal limits. Ventricles are normal. There are no extra-axial collections. There is no evidence of intracranial hemorrhage. No focal mass, midline shift, mass effect is identified. Several hemispheres are within normal limits. Aspect score: 10. Basal cisterns are normal. Bone windows demonstrate a normal appearance of the skull base. Minimal fluid is noted in the right mastoid air cells. The paranasal sinuses are within normal limits. Included portions of the orbits are normal. The cranium is within normal limits without evidence for fracture. Impression Impression: 1. No acute intracranial process. 2. Small right mastoid effusion. Chest 1 View Narrative Chest, one view History: AMS . Altered state of awareness Ordering Physician: KIRSTIN RON Findings: The lungs are clear without focal pneumonic consolidation, pleural effusion, or pneumothorax. The heart size is normal. The mediastinal contours are normal. No pulmonary edema. Several scattered calcified granulomas noted within both lungs. Impression Impression: No acute cardiopulmonary disease. RL: 2601 AFC: [id number] Abdomen 1 View Narrative CLINICAL INFORMATION: Abdominal pain. Altered state of awareness Ordering Physician: KIRSTIN RON FINDINGS: Supine view of the abdomen was submitted on 3 separate images. Small amount of gas within the stomach. Bladder surgically absent. Gas and stool noted in the colon. No dilated loops of small bowel. Impression 1. Nonobstructive intestinal bowel gas pattern. RL: 2601 AFC: [id number] SSMENT/PLAN Yessenia Aleman is a 59 year old female with PMH as listed above, admitted to the hospital with: Toxic encephalopathy likely 2/2 lithium toxicity. Mental status and neuro symptoms very very slowly improving and still far from baseline Presents with stupor-like state, tremor and clonus. Alert and follows commands. Moving all extremities spontaneously. CTH neg. Ammonia level normal (hx of PBC). ABG showed metabolic acidosis. [place] level 1.4 on admission. Decrease IVF Trend lithium level. Now normalized and below normal If no improvement despite lithium level decreasing consider transfer to [facility] for Neurology eval LOLLY. Resolved with IVf. Creatinine > 2 on admision. Now about 0.55 Due to severe dehydration. Recently taken to detox center for opioid withdrawal symptoms. decresae IVF Nephrology consult Dr. Valle Clark catheter to track urine output GPC bacteremia - likely contaminant IV vancomycin empiric day 2 - d/c abx on 02/02/2020 F/u blood cx Repeat blood cutlures on 02/[address] Burton Cholestasis, transaminitis. 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 No acute events overnight. Limited IH/ ROS due to AMS Temp: [35.9 C (96.7 F)-37 C (98.6 F)] Pulse: [68-79] Resp: [16-20] BP: (155-213)/(104-122) MAP (mmHg): [125-131] Vitals and medications reviewed in the chart. Blood work and imaging reviewed in the chart. PE: Gen: NAD HEENT: NCAT. MMM. Neck: Supple. No LAD. Lungs: Diminished CVS: RRR Abd: Soft. NT. +BS Ext: No C/C. LE Edema trace. Skin: No rash Psych: Awake Neuro: No speech. Some grunting. ASSESSMENT/PLAN Yessenia Aleman is a 59 year old female with PMH as listed above, admitted to the hospital with: The primary encounter diagnosis was Altered mental status, unspecified altered mental status type. Diagnoses of Acute kidney injury, Obesity (BMI 30-39.9), Biliary disease, Transaminitis, Chronic pancreatitis, unspecified pancreatitis type, Metabolic acidosis, Elevated liver enzymes, and Acute cystitis without hematuria were also pertinent to this visit. A/ LOLLY improved Acidosis Proteinuria [place] toxicity improved HTN Anemia in chronic illness Acute hepatitis/ Pancreatitis Toxic metabolic encephalopathy likely due to opiate withdrawal P/ Continue current POC and Medications other than changes listed below. Please see chart and orders for complete details. Continue IVF. Replete potassium. Encourage nutrition as tolerated. No NSAIDs. AM labs. Daily weight. 02/02/20 0344 Weight: 82.5 kg (181 lb 12.8 oz) Vitals: 02/02/20 1658 02/02/20 1900 02/02/20 1950 02/02/20 2125 BP: (!) 213/110 (!) 170/112 (!) 155/115 Pulse: 75 Resp: 18 18 Temp: 35.9 C (96.7 F) TempSrc: Temporal Artery SpO2: 98% 95% Weight: Intake/Output Summary (Last 24 hours) at 02/02/20208 Last data filed at 02/02/2020 1840 Gross per 24 hour Intake 100 ml Output 2500 ml Net -2400 ml Hospital Encounter on 01/31/20 US ABDOMEN COMPLETE Narrative RIGHT UPPER QUADRANT ABDOMINAL SONOGRAM TECHNIQUE: Grayscale and limited color Doppler images of the right upper quadrant of the abdomen were obtained. INDICATION: Transaminitis and acute renal failure. COMPARISON: 12/18/2019 FINDINGS: Limited exam due to patient body habitus and inability to cooperate during the exam. Liver measures 13.3 cm in craniocaudal dimension. No focal hepatic lesions identified to the extent visualized (exam limited by rib shadowing). Main portal vein demonstrates normal hepatopedal flow. Main portal vein measures 0.8 cm in AP diameter at [place] hepatis. Gallbladder is not visualized (surgically absent). CBD measures 4 mm in AP diameter at [place] hepatis, normal. No discernible intrahepatic or extrahepatic biliary ductal dilatation. Right kidney measures 10.3 x 4.5 x 5.2 cm. Left kidney measures 11.2 x 4.9 x 4.6 cm. No hydronephrosis or nephrolithiasis. Preservation of normal corticomedullary differentiation. No appreciable atrophy or cortical thinning. Enlarged spleen measures 14.5 cm and clinical dimension. Visualized portions of the pancreatic head appear unremarkable. Majority of the pancreatic body, tail and uncinate process is obscured by bowel gas and/or not well seen. Proximal abdominal aorta measures 2.4 cm in AP diameter, normal. No abnormal dilatation within the mid or distal abdominal aorta. Results portions of the IVC appear unremarkable. Impression No sonographic findings to explain patient's transaminitis. Status post cholecystectomy. Normal sonographic appearance of bilateral kidneys. No appreciable atrophy or cortical thinning. No hydronephrosis. CT Head W/O Contrast Narrative Exam: CT HEAD WO CONTRAST Clinical History: Altered mental status (AMS), unclear cause Technique:Thin section CT brain with multiplanar reformats Comparison: CT brain dated 01/02/2019 Findings: Brainstem, cerebellum are within normal limits. Ventricles are normal. There are no extra-axial collections. There is no evidence of intracranial hemorrhage. No focal mass, midline shift, mass effect is identified. Several hemispheres are within normal limits. Aspect score: 10. Basal cisterns are normal. Bone windows demonstrate a normal appearance of the skull base. Minimal fluid is noted in the right mastoid air cells. The paranasal sinuses are within normal limits. Included portions of the orbits are normal. The cranium is within normal limits without evidence for fracture. Impression Impression: 1. No acute intracranial process. 2. Small right mastoid effusion. Chest 1 View Narrative Chest, one view History: AMS . Altered state of awareness Ordering Physician: KIRSTIN RON Findings: The lungs are clear without focal pneumonic consolidation, pleural effusion, or pneumothorax. The heart size is normal. The mediastinal contours are normal. No pulmonary edema. Several scattered calcified granulomas noted within both lungs. Impression Impression: No acute cardiopulmonary disease. RL: 2601 AFC: 10165 Abdomen 1 View Narrative CLINICAL INFORMATION: Abdominal pain. Altered state of awareness Ordering Physician: KIRSTIN RON FINDINGS: Supine view of the abdomen was submitted on 3 separate images. Small amount of gas within the stomach. Bladder surgically absent. Gas and stool noted in the colon. No dilated loops of small bowel. Impression 1. Nonobstructive intestinal bowel gas pattern. RL: 2601 AFC: [id number] Recent Results (from the past 48 hour(s)) CBC with Differential Collection Time: 02/01/20 5:09 AM Result Value Ref Range WBC 5.42 4.30 - 11.10 10*3/L RBC 2.56 (L) 3.93 - 5.25 10*6/L HGB 8.3 (L) 11.6 - 15.0 g/dL HCT 26.1 (L) 35.7 - 45.2 % MCV 102.0 (H) 80.6 - 95.5 fL MCH 32.4 25.9 - 32.8 pg MCHC 31.8 31.6 - 35.1 g/dL RDW-SD 49.7 39.0 - 49.9 fL RDW-CV 13.2 12.0 - 15.5 % PLT 162 (L) 166 - 358 10*3/L MPV 9.7 9.5 - 12.9 fL NRBC/100 WBC 0.0 0.0 - 10.0 /100 WBCs NRBC x10^3 <0.01 10*3/L GRAN MAT (NEUT) % 79.3 % IMM GRAN % 0.40 % LYMPH % 11.4 % MONO % 6.1 % EOS % 2.6 % BASO % 0.2 % GRAN MAT x10^3(ANC) 4.30 1.88 - 7.09 10*3/uL IMM GRAN x10^3 <0.03 0.00 - 0.06 10*3/uL LYMPH x10^3 0.62 (L) 1.32 - 3.29 10*3/uL MONO x10^3 0.33 0.33 - 0.92 10*3/uL EOS x10^3 0.14 0.03 - 0.39 10*3/uL BASO x10^3 <0.03 0.01 - 0.07 10*3/uL LITHIUM Collection Time: 02/01/20 5:09 AM Result Value Ref Range [place] 1.0 0.6 - 1.2 mmol/L LIPASE Collection Time: 02/01/20 5:09 AM Result Value Ref Range LIPASE 353 (H) 0 - 220 U/L COMP. METABOLIC PANEL (24052) Collection Time: 02/01/20 5:09 AM Result Value Ref Range NA 139 135 - 145 mmol/L K 4.1 3.5 - 5.0 mmol/L CL 112 (H) 98 - 108 mmol/L CO2 TOTAL 20 (L) 23 - 31 mmol/L AGAP 7 2 - 16 BUN 16 7 - 23 mg/dL GLUCOSE 99 70 - 110 mg/dL CREATININE 0.85 0.50 - 1.04 mg/dL TOTAL BILI 1.3 (H) 0.1 - 1.1 mg/dL CALCIUM 8.6 8.6 - 10.6 mg/dL T PROTEIN 6.2 (L) 6.3 - 8.2 g/dL ALBUMIN 3.2 (L) 3.5 - 5.0 g/dL ALK PHOS 646 (H) 34 - 122 U/L ALTv 209 (H) 5 - 35 U/L AST(SGOT) 110 (H) 13 - 40 U/L eGFR Calculation (Non-) 68.9 mL/min/1.73m2 eGFR Calculation () 83.6 mL/min/1.73m2 POCT GLUCOSE (AUTOMATED) Collection Time: 02/01/20 7:46 AM Result Value Ref Range POCT GLU 104 70 - 110 mg/dL ACUTE CARE VENOUS BLOOD GAS Collection Time: 02/01/20 2:23 PM Result Value Ref Range PH 7.30 (L) 7.32 - 7.42 PCO2 SANDHYA 46 41 - 51 mmHg PO2 SANDHYA 72 (HH) 25 - 40 mmHg HCO3 SANDHYA 22 (L) 24 - 28 mEq/L AC VBE(BEAKER) -4.2 mEq/L COMP. METABOLIC PANEL (59667) Collection Time: 02/02/20 3:21 AM Result Value Ref Range NA 129 (L) 135 - 145 mmol/L K 3.0 (L) 3.5 - 5.0 mmol/L CL 100 98 - 108 mmol/L CO2 TOTAL 22 (L) 23 - 31 mmol/L AGAP 7 2 - 16 BUN 8 7 - 23 mg/dL GLUCOSE 632 (HH) 70 - 110 mg/dL CREATININE 0.54 0.50 - 1.04 mg/dL TOTAL BILI 1.0 0.1 - 1.1 mg/dL CALCIUM 7.9 (L) 8.6 - 10.6 mg/dL T PROTEIN 5.3 (L) 6.3 - 8.2 g/dL ALBUMIN 2.7 (L) 3.5 - 5.0 g/dL ALK PHOS 562 (H) 34 - 122 U/L ALTv 138 (H) 5 - 35 U/L AST(SGOT) 61 (H) 13 - 40 U/L eGFR Calculation (Non-) 116.4 mL/min/1.73m2 eGFR Calculation () 141.0 mL/min/1.73m2 CBC WITH DIFF Collection Time: 02/02/20 3:21 AM Result Value Ref Range WBC 6.58 4.30 - 11.10 10*3/L RBC 2.63 (L) 3.93 - 5.25 10*6/L HGB 8.2 (L) 11.6 - 15.0 g/dL HCT 26.3 (L) 35.7 - 45.2 % MCV 100.0 (H) 80.6 - 95.5 fL MCH 31.2 25.9 - 32.8 pg MCHC 31.2 (L) 31.6 - 35.1 g/dL RDW-SD 47.2 39.0 - 49.9 fL RDW-CV 13.1 12.0 - 15.5 % PLT 201 166 - 358 10*3/L MPV 9.7 9.5 - 12.9 fL NRBC/100 WBC 0.0 0.0 - 10.0 /100 WBCs NRBC x10^3 <0.01 10*3/L GRAN MAT (NEUT) % 78.6 % IMM GRAN % 0.50 % LYMPH % 13.1 % MONO % 5.5 % EOS % 2.0 % BASO % 0.3 % GRAN MAT x10^3(ANC) 5.18 1.88 - 7.09 10*3/uL IMM GRAN x10^3 0.03 0.00 - 0.06 10*3/uL LYMPH x10^3 0.86 (L) 1.32 - 3.29 10*3/uL MONO x10^3 0.36 0.33 - 0.92 10*3/uL EOS x10^3 0.13 0.03 - 0.39 10*3/uL BASO x10^3 <0.03 0.01 - 0.07 10*3/uL LIPASE Collection Time: 02/02/20 3:21 AM Result Value Ref Range LIPASE 140 0 - 220 U/L LITHIUM Collection Time: 02/02/20 3:21 AM Result Value Ref Range [place] 0.5 (L) 0.6 - 1.2 mmol/L GLYCOSYLATED HEMOGLOBIN (A1C) Collection Time: 02/02/20 3:21 AM Result Value Ref Range HGB A1C 4.5 4.0 - 6.0 % POCT GLUCOSE (AUTOMATED) Collection Time: 02/02/20 6:24 AM Result Value Ref Range POCT GLU 138 (H) 70 - 110 mg/dL LITHIUM Collection Time: 02/02/20 6:31 AM Result Value Ref Range [place] 0.4 (L) 0.6 - 1.2 mmol/L LIPASE Collection Time: 02/02/20 6:31 AM Result Value Ref Range LIPASE 203 0 - 220 U/L COMP. METABOLIC PANEL ([id number]) Collection Time: 02/02/20 6:31 AM Result Value Ref Range NA 135 135 - 145 mmol/L K 3.5 3.5 - 5.0 mmol/L CL 103 98 - 108 mmol/L CO2 TOTAL 25 23 - 31 mmol/L AGAP 7 2 - 16 BUN 8 7 - 23 mg/dL GLUCOSE 148 (H) 70 - 110 mg/dL CREATININE 0.55 0.50 - 1.04 mg/dL TOTAL BILI 1.2 (H) 0.1 - 1.1 mg/dL CALCIUM 9.4 8.6 - 10.6 mg/dL T PROTEIN 6.9 6.3 - 8.2 g/dL ALBUMIN 3.6 3.5 - 5.0 g/dL ALK PHOS 723 (H) 34 - 122 U/L ALTv 166 (H) 5 - 35 U/L AST(SGOT) 72 (H) 13 - 40 U/L eGFR Calculation (Non-) 113.9 mL/min/1.73m2 eGFR Calculation () 138.1 mL/min/1.73m2 LIPID PANEL ([id number])(TOTAL CHOLESTEROL, TRIGLYCERIDES, HDL) Collection Time: 02/02/20 6:31 AM Result Value Ref Range CHOL 343 (H) 120 - 200 mg/dL HDL 87 >50 mg/dL HDLC RATIO 3.9 <=4.5 TRIG 131 30 - 170 mg/dL LDL CHOL 230 (H) <=160 mg/dL VLDL 26 5 - 60 mg/dL CREATINE KINASE Collection Time: 02/02/20 6:31 AM Result Value Ref Range CK 37 33 - 194 U/L PROTHROMBIN TIME / INR Collection Time: 02/02/20 2:58 PM Result Value Ref Range PROTIME PATIENT 12.7 12.0 - 14.7 Seconds INR 1.0 BLOOD CULTURE SCREEN Collection Time: 02/02/20 2:58 PM Specimen: VENOUS; Blood Result Value Ref Range Blood Culture-Aerobic Culture In Progress No growth Blood Culture-Anaerobic Culture In Progress No growth VALPROIC ACID, TOTAL Collection Time: 02/02/20 2:58 PM Result Value Ref Range VALPROIC A <10 (L) 50 - 100 ug/mL BLOOD CULTURE SCREEN Collection Time: 02/02/20 3:19 PM Specimen: VENOUS; Blood Result Value Ref Range Blood Culture-Aerobic Culture In Progress No growth Blood Culture-Anaerobic Culture In Progress No growth Current Facility-Administered Medications Medication Dose Route Frequency Last Rate Last Dose amLODIPine (NORVASC) tablet 10 mg 10 mg Oral DAILY 10 mg at 02/02/20 1730 D5W 0.45% NaCl (1/2NS) 1 L + KCL 20 mEq IV Infusion CONTINUOUS 50 mL/hr at 02/02/20 1616 labetaloL (NORMODYNE) injection 10 mg 10 mg Slow IV Push Q4HPRN 10 mg at 02/02/20 2133 oumdym-zqlccflf-zeazggi (PANCREAZE) 16,800-56,800- 98,400 unit capsule 1 capsule 1 capsule OralTID MEALS 1 capsule at 02/02/20 1615 losartan (COZAAR) tablet 100 mg 100 mg Oral DAILY 100 mg at 02/02/20 1431 cyanocobalamin (VITAMIN B12) injection 1,000 mcg 1,000 mcg Subcutaneous Q24H 1,000 mcg at 02/02/20 0930 hydralAZINE (APRESOLINE) injection 10 mg 10 mg Slow IV Push Q4HPRN 10 mg at 02/02/20 1707 enoxaparin (LOVENOX) injection 30 mg 30 mg Subcutaneous DAILY 30 mg at 02/02/20 0930 Pasha Hinojosa MD - 02/01/2020 6:52 PM CDT [facility] Hospitalist Progress Note CHECKLIST: Medication record: Reviewed PO intake: Inadequate due to somnolence Urine output: Adequate Bowel movement: Inadequate Pressure ulcers & wounds: None, Telemetry: Indicated Access: PIV Catheters & drains: None O2: Room air Stability: No acute issues SUBJECTIVE: Per , mental status slightly better today. Not tolerating po due to somnolence. CURRENT MEDICATIONS - reviewed. Current Facility-Administered Medications Medication Dose Route Frequency Last Rate Last Dose cyanocobalamin (VITAMIN B12) injection 1,000 mcg 1,000 mcg Subcutaneous Q24H 1,000 mcg at 02/01/20 1103 D5W 0.45% NaCl (1/2NS) IV infusion 1,000 mL 1,000 mL IV Infusion CONTINUOUS hydralAZINE (APRESOLINE) injection 10 mg 10 mg Slow IV Push Q4HPRN 10 mg at 02/01/20 1639 NaCl 0.45% (1/2NS) IV infusion 1,000 mL 1,000 mL IV Infusion ONCE 150 mL/hr at 02/01/20 1518 [START ON 02/02/2020] thiamine (VITAMIN B1) 100 mg in NaCl 0.9% (NS) piggyback 100 mg IV Piggyback DAILY vancomycin 1250 mg in NS 250 mL RTU IV Piggyback 1,250 mg 15 mg/kg IV Piggyback Q24H ABX enoxaparin (LOVENOX) injection 30 mg 30 mg Subcutaneous DAILY 30 mg at 02/01/20 0959 PHYSICAL EXAM: BP (!) 180/106 | Pulse 84 | Temp 36.4 C (97.5 F) (Tympanic) | Resp 18 | Wt 182 lb 14.4 oz (83 kg) | SpO2 100% | BMI 35.72 kg/m General: No respiratory distress HEENT: Anicteric sclerae, NCAT Lungs: Symmetric expansion Abdomen: Soft, NTND Genitourinary: Clark intact Musculoskeletal: Normal muscle mass, no synovitis Skin: No rash or lesions Neuro: AAOx3, no focal deficits Psych: Normal affect LABS/IMAGING - reviewed, pertinent results as below: CBC BMP PT/INR WBC (10*3/L) Date Value 02/01/2020 5.42 NA (mmol/L) Date Value 02/01/2020 139 No results found for: PT RBC (10*6/L) Date Value 02/01/2020 2.56 (L) K (mmol/L) Date Value 02/01/2020 4.1 INR (no units) Date Value 08/21/2019 1.0 PLT (10*3/L) Date Value 02/01/2020 162 (L) CALCIUM (mg/dL) Date Value 02/01/2020 8.6 HGB (g/dL) Date Value 02/01/2020 8.3 (L) CL (mmol/L) Date Value 02/01/2020 112 (H) aPTT HCT (%) Date Value 02/01/2020 26.1 (L) BUN (mg/dL) Date Value 02/01/2020 16 APTT Patient (Seconds) Date Value 08/21/2019 30 CREATININE (mg/dL) Date Value 02/01/2020 0.85 IMAGING- Hospital Encounter on 01/31/20 US ABDOMEN COMPLETE Narrative RIGHT UPPER QUADRANT ABDOMINAL SONOGRAM TECHNIQUE: Grayscale and limited color Doppler images of the right upper quadrant of the abdomen were obtained. INDICATION: Transaminitis and acute renal failure. COMPARISON: 12/18/2019 FINDINGS: Limited exam due to patient body habitus and inability to cooperate during the exam. Liver measures 13.3 cm in craniocaudal dimension. No focal hepatic lesions identified to the extent visualized (exam limited by rib shadowing). Main portal vein demonstrates normal hepatopedal flow. Main portal vein measures 0.8 cm in AP diameter at [place] hepatis. Gallbladder is not visualized (surgically absent). CBD measures 4 mm in AP diameter at [place] hepatis, normal. No discernible intrahepatic or extrahepatic biliary ductal dilatation. Right kidney measures 10.3 x 4.5 x 5.2 cm. Left kidney measures 11.2 x 4.9 x 4.6 cm. No hydronephrosis or nephrolithiasis. Preservation of normal corticomedullary differentiation. No appreciable atrophy or cortical thinning. Enlarged spleen measures 14.5 cm and clinical dimension. Visualized portions of the pancreatic head appear unremarkable. Majority of the pancreatic body, tail and uncinate process is obscured by bowel gas and/or not well seen. Proximal abdominal aorta measures 2.4 cm in AP diameter, normal. No abnormal dilatation within the mid or distal abdominal aorta. Results portions of the IVC appear unremarkable. Impression No sonographic findings to explain patient's transaminitis. Status post cholecystectomy. Normal sonographic appearance of bilateral kidneys. No appreciable atrophy or cortical thinning. No hydronephrosis. CT Head W/O Contrast Narrative Exam: CT HEAD WO CONTRAST Clinical History: Altered mental status (AMS), unclear cause Technique:Thin section CT brain with multiplanar reformats Comparison: CT brain dated 01/02/2019 Findings: Brainstem, cerebellum are within normal limits. Ventricles are normal. There are no extra-axial collections. There is no evidence of intracranial hemorrhage. No focal mass, midline shift, mass effect is identified. Several hemispheres are within normal limits. Aspect score: 10. Basal cisterns are normal. Bone windows demonstrate a normal appearance of the skull base. Minimal fluid is noted in the right mastoid air cells. The paranasal sinuses are within normal limits. Included portions of the orbits are normal. The cranium is within normal limits without evidence for fracture. Impression Impression: 1. No acute intracranial process. 2. Small right mastoid effusion. Chest 1 View Narrative Chest, one view History: AMS . Altered state of awareness Ordering Physician: KIRSTIN RON Findings: The lungs are clear without focal pneumonic consolidation, pleural effusion, or pneumothorax. The heart size is normal. The mediastinal contours are normal. No pulmonary edema. Several scattered calcified granulomas noted within both lungs. Impression Impression: No acute cardiopulmonary disease. RL: 2601 AFC: 24192 Abdomen 1 View Narrative CLINICAL INFORMATION: Abdominal pain. Altered state of awareness Ordering Physician: KIRSTIN RON FINDINGS: Supine view of the abdomen was submitted on 3 separate images. Small amount of gas within the stomach. Bladder surgically absent. Gas and stool noted in the colon. No dilated loops of small bowel. Impression 1. Nonobstructive intestinal bowel gas pattern. RL: 2601 AFC: 17609 SSMENT/PLAN Yessenia Aleman is a 59 year old female with PMH as listed above, admitted to the hospital with: Toxic encephalopathy likely 2/2 lithium toxicity Presents with stupor-like state, tremor and clonus. Alert and follows commands. Moving all extremities spontaneously. CTH neg. Ammonia level normal (hx of PBC). ABG showed metabolic acidosis. [place] level 1.4 on admission. Slowly improving Continue IV fluids Trend lithium level If no improvement despite lithium level decreasing consider transfer to [place] for Neurology eval LOLLY Due to severe dehydration. Recently taken to detox center for opioid withdrawal symptoms. Continue IV fluids Clark catheter to track urine output GPC bacteremia IV vancomycin empiric day 1 F/u blood cx Cholestasis, transaminitis. Hx of PBC. LFT at baseline US pending Follows with GI as outpatient Will consult Dr. Hawkins B12 deficiency Start SQ cobalamin Prophylaxis: DVT- enoxaparin Stress Ulcer: no indication for prophylaxis Code Status: Full Disposition: Home when medically cleared Pasha Hinojosa MD [facility] - 02/01/2020 1:41 PM CDTSubjective Patient ID: Yessenia Aleman is a 59 year old female. Care Management Social Functional Assessment Patient Name: Yessenia Aleman Age: [age] year old Sex: female Previous admit date: N/A Current diagnosis and co-morbidities: Altered mental status;Metabolic acidosis Readmission Questions: Was patient discharged from any acute care hospital within the last 30 days: No Social Functional Assessment: Primary language spoken/preferred: Barbadian Mental Status: Alert & Oriented to Person,Place & Time Information given by: Spouse Name and phone number of person giving information: Puneet Aleman, Patient's support system: Spouse;Parent Name and number of support system: Puneet Aleman, and Kim Lagos, mother [phone] Primary Stretching Machine Operator: Spouse MPOA: No Living Arrangement: Home Address of living arrangement : [address] [place] [id number] Persons living in home: Self;Spouse Barriers to returning home: None Baseline functional status- ambulation: Independent Functional status-baseline personal care: Independent Baseline functional status- driving: Independent Baseline functional status- grocery shopping: Independent Functional status-baseline housekeeping: Independent Functional status-baseline meal prep: Independent Current functional status same as prior: No Current functional status- ambulation: Requires minimal to moderate assistance Current functional status- personal care: Requires minimal to moderate assistance Current functional status- driving: Requires minimal to moderate assistance Current functional status- grocery shopping: Requires minimal to moderate assistance Current functional status-house keeping: Requires minimal to moderate assistance Current functional status- meal preparation: Requires minimal to moderate assistance Do you have a PCP?: Yes Name of PCP: Jeannie Slade [facility] Agency: No Provider Services: No DME Company: No Equipment: None Hemodialysis: No Community resources utilized: None Funding Resources: Commercial;Medicare A & B Prescription coverage plan: Medicare Part D Pharmacy where meds are filled: Other Other pharmacy: [facility] Anticipated services prior to disharge: Continue Medical Eval Expected mode of discharge transportation: Same as support system Additional Recommendations for DC: medical clearance Additional info required for discharge planning: Pending medical evaluation Recommended discharge plan: Home SFA Complete: Social Functional Assessment complete: Yes Alcohol Use Screening (AUDIT-C) How often do you have a drink containing alcohol?: Never SCORE: 0 Did patient elect to have resources provided: No Role of Care Management explained. Any issues or concerns with obtaining/affording your medications at home: no. Are you or your support system able to warehouse picker medications at discharge: yes. Review of Systems Objective Physical Exam Assessment/Plan Home with . Will reassess discharge needs. SHRUTHI Cheek Gifted Teacher - Care Management [place] [phone] [email or web address] in this encounter H&P Notes Katheryn Retana MD - 02/03/2020 9:05 PM CDT MEDICINE CLS ADMIT H&P PCP: Jeannie Slade Date of Service: 02/03/2020 CHIEF COMPLAINT: Altered mental status HISTORY OF PRESENT ILLNESS Mrs Aleman is a 59 year old female with a PMH significant for HTN, arthritis, depression (on Librium), chronic pain syndrome (takes hydrocodone), peptic ulcer disease, chronic pancreatitis and bilary cirrhosis/stenosis post stent placement and revision.Patient stated she "felt weak and like she had the flu 5 days ago". Denies pain, numbness or tingling.Patient is a poor historian information obtained from medical record. Patient [facility]. Spouse reports that patient has been on hydrocodone for approximately 10 years and she stopped taking hydrocodone 8 days prior to presentation. Spouse reported that on 01/29/2020 patient was confused and having tremors, he [facility]. Patients spouse reported that patient had not void for approximately 16 hours and had similar episode in the past when she had sepsis requiring hospitalization. CT brain and Abdominal U/S was negative for acute changes, U/A pyuria, Urine culture negative. Patient was transferred today [facility] for neuro evaluation. PAST MEDICAL HISTORY Past Medical History: Diagnosis Date Biliary duct stenosis s/p stent placement and revision x3 Chronic congestive splenomegaly Chronic pain Chronic pancreatitis Depression History of cholecystectomy Hypertension Peptic ulcer Primary biliary cirrhosis Past Surgical History: Procedure Laterality Date APPENDECTOMY 2018 BILIARY STENT PLACEMENT 2010 CHOLECYSTECTOMY 2010 EXCISE BREAST CYST Family History Problem Relation Age of Onset Thyroid Cancer Father Diabetes Brother Liver Cancer Brother Breast Cancer Paternal Grandmother Diabetes Brother Liver Cancer Brother Breast Cancer Daughter ALLERGIES Allergies Allergen Reactions Codeine Itching and Rash MEDICATIONS No current facility-administered medications on file prior to encounter. Current Outpatient Medications on File Prior to Encounter Medication Sig Dispense Refill lithium carbonate 300 mg capsule Take 300 mg by mouth 2 (two) times daily. temazepam 15 mg capsule Take 15 mg by mouth at bedtime as needed for Insomnia. ursodioL 500 mg tablet Take 500 mg by mouth 2 (two) times daily. albuterol 90 mcg/actuation inhaler Inhale 2 Puffs every 4 (four) hours as needed for Wheezing, Shortness of Breath, Bronchospasm or Chest tightness. 8.5 g 0 chlordiazePOXIDE 10 mg capsule Take 10 mg by mouth 3 (three) times daily. pantoprazole 40 mg EC tablet Take 1 tablet by mouth 2 (two) times daily. 60 tablet 0 proMETHazine 25 mg tablet Take 1 tablet by mouth every 6 (six) hours as needed for N/V alternating with Ondansetron. 28 tablet 0 CREON 36,000-114,000- 180,000 unit CpDR Take by mouth 3 (three) times daily with meals. 0 divalproex (DEPAKOTE) 500 mg EC tablet Take 500 mg by mouth daily. escitalopram oxalate (LEXAPRO) 20 mg tablet Take 20 mg by mouth at bedtime. QUEtiapine (SEROQUEL) 400 mg tablet Take 400 mg by mouth at bedtime. tiZANidine 4 mg capsule Take 4 mg by mouth 2 (two) times daily. LOSARTAN POTASSIUM (LOSARTAN ORAL) Take 100 mg by mouth daily. proMETHazine (PHENERGAN) 25 mg suppository Insert 1 Suppository into rectum every 4 (four) hoursas needed for Nausea and Vomiting (N/V). 16 Suppository 0 benzonatate 200 mg capsule Take 1 capsule by mouth 3 (three) times daily as needed for Cough. 21capsule 0 Nitrofurantoin&Nit. Macrocryst (MACROBID) 100 mg capsule Take 1 capsule by mouth 2 (two) times daily. 14 capsule 0 ondansetron (ZOFRAN) 4 mg tablet Take 1 tablet by mouth every 8 (eight) hours as needed for Nausea and Vomiting (N/V). 12 tablet 0 traMADol (ULTRAM) 50 mg tablet Take 1 tablet by mouth every 6 (six) hours as needed for Pain (scale 7-10). 20 tablet 0 ondansetron 4 mg disintegrating tablet Take 2 tablets by mouth every 8 (eight) hours as needed for Nausea and Vomiting (N/V). 20 tablet 0 ondansetron 4 mg disintegrating tablet Take 1 tablet by mouth every 8 (eight) hours as needed for Nausea and Vomiting (N/V). 20 tablet 0 traMADol 100 mg 24 hr tablet Take 1 tablet by mouth daily. 15 tablet 0 ondansetron 4 mg tablet Take 1 tablet by mouth every 8 (eight) hours as needed for Nausea and Vomiting (N/V). 20 tablet 0 losartan 100 mg tablet Take 1 tablet by mouth daily. 30 tablet 0 meloxicam 7.5 mg tablet Take 7.5 mg by mouth daily. traMADol 50 mg tablet 1 by mouth every 4-6 hours as needed for pain 40 tablet 0 HYDROcodone-acetaminophen 7.5-325 mg per tablet Take 1 tablet by mouth every 6 (six) hours as needed (Pain scal 7-10). 20 tablet 0 gabapentin (NEURONTIN) 300 mg capsule Take 300 mg by mouth 3 (three) times daily. SOCIAL HISTORY Social History Socioeconomic History Marital status: Spouse name: Not on file Number of children: Not on file Years of education: 11 Highest education level: Not on file Occupational History Not on file Social Needs Financial resource strain: Somewhat hard Food insecurity Worry: Never true Inability: Never true Transportation needs Medical: No Non-medical: No Tobacco Use Smoking status: Never Smoker Smokeless tobacco: Never Used Substance and Sexual Activity Alcohol use: Never Frequency: Never Drug use: Never Sexual activity: Not on file Lifestyle Physical activity Days per week: Not on file Minutes per session: Not on file Stress: Not on file Relationships Social connections Talks on phone: Not on file Gets together: Not on file Attends amish service: Not on file Active member of club or organization: Not on file Attends meetings of clubs or organizations: Not on file Relationship status: Not on file Intimate partner violence Fear of current or ex partner: Not on file Emotionally abused: Not on file Physically abused: Not on file Forced sexual activity: Not on file Other Topics Concern Not on file Social History Narrative Not on file REVIEW OF SYSTEMS (-)=Negative,(+)=Positive General: (-) fever, (-) chills, (-) weight loss Skin: (-) rash, (-) lesion HEENT: (-) headache, (-) change in vision, (-) sore throat Neck: (-) pain, (-) difficulty swallowing, (-) mass Heme: (-) bleeding disorder Resp: (-) cough, (-) shortness of breath, (-) wheezing Cardio: (-) chest pain, (-) palpitations, (-) syncope GI: (-) abdominal pain, (-) vomiting, (-) diarrhea : (-) dysuria, (-) hematuria, (-) increased frequency Endo: (-) heat intolerance, (-) diabetes, (-) cold intolerance Neuro: (-) numbness, (+) weakness, (-) change in speech Back: (-) pain, (-)spasms FATMATA: (-) muscle pain, (-) joint pain, (-) claudication (+) weakness Psych: (-) anxiety, (+) depression, (-) psychiatric disorder PHYSICAL EXAMINATION Vitals: 02/03/20 0804 02/03/20 1017 02/03/20 1133 02/03/20 192 BP: (!) 157/113 (!) 167/117 Patient Position: Sitting BP CUFF SIZE: Adult Large Pulse: 61 79 Resp: 18 16 Temp: 35.1 C (95.2 F) 36.6 C (97.8 F) TempSrc: Oral SpO2: 95% 98% 96% 98% Weight: O2 sat: SpO2 readings for the past 24 hrs: SpO2 02/02/20 2344 100 % 02/03/20 0316 100 % 02/03/20 0728 100 % 02/03/20 0804 95 % 02/03/20 1017 98 % 02/03/20 1133 96 % 02/03/20 192 98 % I & O: Intake/Output Summary (Last 24 hours) at 02/03/2020 2105 Last data filed at 02/03/2020 0800 Gross per 24 hour Intake 820 ml Output 900 ml Net -80 ml Pain Scale: General: Lethargic, obeys commands, answers simple questions.no apparent distress. Affect flat. HEENT: normocephalic atraumatic, pupils equal, round, reactive to light, EOMs intact. Neck: supple, no lymphadenopathy, no bruits, no JVD Lungs: symmetrical chest expansion. clear to auscultation bilaterally, no crackles, no wheezes, cough is strong and effective Cardio: regular rate and rhythm, no murmurs, no gallops Abdomen: soft; non-tender; non-distended; normoactive bowel sounds Extremities: no clubbing, cyanosis, or edema Skin: no rashes Neuro: Cranial nerves 1 not tested. II-X, XII intact, XI diminished. Sensation decreased in lower extermities. Muscle strength in bilateral upper extermities 1/4 and bilateral lower extremities 3/4. Deep tendon reflex 1+ in bilateral upper extremities and 2+ in bilateral lower extremities. LABS - reviewed pertinent labs as below: Recent Results (from the past 48 hour(s)) COMP. METABOLIC PANEL ([id number]) Collection Time: 02/02/20 3:21 AM Result Value Ref Range NA 129 (L) 135 - 145 mmol/L K 3.0 (L) 3.5 - 5.0 mmol/L CL 100 98 - 108 mmol/L CO2 TOTAL 22 (L) 23 - 31 mmol/L AGAP 7 2 - 16 BUN 8 7 - 23 mg/dL GLUCOSE 632 (HH) 70 - 110 mg/dL CREATININE 0.54 0.50 - 1.04 mg/dL TOTAL BILI 1.0 0.1 - 1.1 mg/dL CALCIUM 7.9 (L) 8.6 - 10.6 mg/dL T PROTEIN 5.3 (L) 6.3 - 8.2 g/dL ALBUMIN 2.7 (L) 3.5 - 5.0 g/dL ALK PHOS 562 (H) 34 - 122 U/L ALTv 138 (H) 5 - 35 U/L AST(SGOT) 61 (H) 13 - 40 U/L eGFR Calculation (Non-) 116.4 mL/min/1.73m2 eGFR Calculation () 141.0 mL/min/1.73m2 CBC WITH DIFF Collection Time: 02/02/20 3:21 AM Result Value Ref Range WBC 6.58 4.30 - 11.10 10*3/L RBC 2.63 (L) 3.93 - 5.25 10*6/L HGB 8.2 (L) 11.6 - 15.0 g/dL HCT 26.3 (L) 35.7 - 45.2 % MCV 100.0 (H) 80.6 - 95.5 fL MCH 31.2 25.9 - 32.8 pg MCHC 31.2 (L) 31.6 - 35.1 g/dL RDW-SD 47.2 39.0 - 49.9 fL RDW-CV 13.1 12.0 - 15.5 % PLT 201 166 - 358 10*3/L MPV 9.7 9.5 - 12.9 fL NRBC/100 WBC 0.0 0.0 - 10.0 /100 WBCs NRBC x10^3 <0.01 10*3/L GRAN MAT (NEUT) % 78.6 % IMM GRAN % 0.50 % LYMPH % 13.1 % MONO % 5.5 % EOS % 2.0 % BASO % 0.3 % GRAN MAT x10^3(ANC) 5.18 1.88 - 7.09 10*3/uL IMM GRAN x10^3 0.03 0.00 - 0.06 10*3/uL LYMPH x10^3 0.86 (L) 1.32 - 3.29 10*3/uL MONO x10^3 0.36 0.33 - 0.92 10*3/uL EOS x10^3 0.13 0.03 - 0.39 10*3/uL BASO x10^3 <0.03 0.01 - 0.07 10*3/uL LIPASE Collection Time: 02/02/20 3:21 AM Result Value Ref Range LIPASE 140 0 - 220 U/L LITHIUM Collection Time: 02/02/20 3:21 AM Result Value Ref Range [place] 0.5 (L) 0.6 - 1.2 mmol/L GLYCOSYLATED HEMOGLOBIN (A1C) Collection Time: 02/02/20 3:21 AM Result Value Ref Range HGB A1C 4.5 4.0 - 6.0 % POCT GLUCOSE (AUTOMATED) Collection Time: 02/02/20 6:24 AM Result Value Ref Range POCT GLU 138 (H) 70 - 110 mg/dL LITHIUM Collection Time: 02/02/20 6:31 AM Result Value Ref Range [place] 0.4 (L) 0.6 - 1.2 mmol/L LIPASE Collection Time: 02/02/20 6:31 AM Result Value Ref Range LIPASE 203 0 - 220 U/L COMP. METABOLIC PANEL ([id number]) Collection Time: 02/02/20 6:31 AM Result Value Ref Range NA 135 135 - 145 mmol/L K 3.5 3.5 - 5.0 mmol/L CL 103 98 - 108 mmol/L CO2 TOTAL 25 23 - 31 mmol/L AGAP 7 2 - 16 BUN 8 7 - 23 mg/dL GLUCOSE 148 (H) 70 - 110 mg/dL CREATININE 0.55 0.50 - 1.04 mg/dL TOTAL BILI 1.2 (H) 0.1 - 1.1 mg/dL CALCIUM 9.4 8.6 - 10.6 mg/dL T PROTEIN 6.9 6.3 - 8.2 g/dL ALBUMIN 3.6 3.5 - 5.0 g/dL ALK PHOS 723 (H) 34 - 122 U/L ALTv 166 (H) 5 - 35 U/L AST(SGOT) 72 (H) 13 - 40 U/L eGFR Calculation (Non-) 113.9 mL/min/1.73m2 eGFR Calculation () 138.1 mL/min/1.73m2 LIPID PANEL ([id number])(TOTAL CHOLESTEROL, TRIGLYCERIDES, HDL) Collection Time: 02/02/20 6:31 AM Result Value Ref Range CHOL 343 (H) 120 - 200 mg/dL HDL 87 >50 mg/dL HDLC RATIO 3.9 <=4.5 TRIG 131 30 - 170 mg/dL LDL CHOL 230 (H) <=160 mg/dL VLDL 26 5 - 60 mg/dL CREATINE KINASE Collection Time: 02/02/20 6:31 AM Result Value Ref Range CK 37 33 - 194 U/L PROCALCITONIN Collection Time: 02/02/20 2:58 PM Result Value Ref Range Procalcitonin 0.05 <0.07 ng/mL PROTHROMBIN TIME / INR Collection Time: 02/02/20 2:58 PM Result Value Ref Range PROTIME PATIENT 12.7 12.0 - 14.7 Seconds INR 1.0 BLOOD CULTURE SCREEN Collection Time: 02/02/20 2:58 PM Specimen: VENOUS; Blood Result Value Ref Range Blood Culture-Aerobic (AA) No growth Culture positive. See Blood Culture Workup for additional information. Blood Culture-Anaerobic Culture In Progress No growth HEPATITIS B SURFACE ANTIBODY Collection Time: 02/02/20 2:58 PM Specimen: ARM, LEFT; Blood Result Value Ref Range HBsAB Negative HBsAb Semi-Quantitative 0.00 mIU/mL HEPATITIS B SURFACE ANTIGEN Collection Time: 02/02/20 2:58 PM Specimen: ARM, LEFT; Blood Result Value Ref Range HBsAg Negative Negative HBsAg Semi-Quantitative 0.14 HAV ANTIBODY (IGG AND IGM) Collection Time: 02/02/20 2:58 PM Specimen: ARM, LEFT; Blood Result Value Ref Range HAV Total Positive HAVT Semi-Quantitative 0.01 HCV ANTIBODY Collection Time: 02/02/20 2:58 PM Result Value Ref Range HCV Ab Negative HCV Semi-Quantitative 0.02 VALPROIC ACID, FREE Collection Time: 02/02/20 2:58 PM Result Value Ref Range Valproic Acid, Free <2.0 (L) 4.0 - 15.0 ug/mL VALPROIC ACID, TOTAL Collection Time: 02/02/20 2:58 PM Result Value Ref Range VALPROIC A <10 (L) 50 - 100 ug/mL CERULOPLASMIN Collection Time: 02/02/20 2:58 PM Result Value Ref Range CERULO 55 25 - 63 mg/dL ANTI-NUCLEAR ANTIBODY SCREEN Collection Time: 02/02/20 2:58 PM Result Value Ref Range LESLY Negative Negative BLOOD CULTURE WORKUP Collection Time: 02/02/20 2:58 PM Specimen: VENOUS; Blood Result Value Ref Range Gram stain Isolated from aerobic bottle Gram positive cocci BLOOD CULTURE SCREEN Collection Time: 02/02/20 3:19 PM Specimen: VENOUS; Blood Result Value Ref Range Blood Culture-Aerobic No growth at 24 hours No growth Blood Culture-Anaerobic No growth at 24 hours No growth COMP. METABOLIC PANEL ([id number]) Collection Time: 02/03/20 3:45 AM Result Value Ref Range NA 136 135 - 145 mmol/L K 3.6 3.5 - 5.0 mmol/L CL 104 98 - 108 mmol/L CO2 TOTAL 28 23 - 31 mmol/L AGAP 4 2 - 16 BUN 7 7 - 23 mg/dL GLUCOSE 138 (H) 70 - 110 mg/dL CREATININE 0.61 0.50 - 1.04 mg/dL TOTAL BILI 1.0 0.1 - 1.1 mg/dL CALCIUM 9.2 8.6 - 10.6 mg/dL T PROTEIN 6.6 6.3 - 8.2 g/dL ALBUMIN 3.5 3.5 - 5.0 g/dL ALK PHOS 584 (H) 34 - 122 U/L ALTv 131 (H) 5 - 35 U/L AST(SGOT) 49 (H) 13 - 40 U/L eGFR Calculation (Non-) 101.1 mL/min/1.73m2 eGFR Calculation () 122.5 mL/min/1.73m2 CBC WITH DIFF Collection Time: 02/03/20 3:45 AM Result Value Ref Range WBC 8.19 4.30 - 11.10 10*3/L RBC 3.07 (L) 3.93 - 5.25 10*6/L HGB 9.8 (L) 11.6 - 15.0 g/dL HCT 29.8 (L) 35.7 - 45.2 % MCV 97.1 (H) 80.6 - 95.5 fL MCH 31.9 25.9 - 32.8 pg MCHC 32.9 31.6 - 35.1 g/dL RDW-SD 47.2 39.0 - 49.9 fL RDW-CV 13.2 12.0 - 15.5 % PLT 268 166 - 358 10*3/L MPV 8.7 (L) 9.5 - 12.9 fL NRBC/100 WBC 0.0 0.0 - 10.0 /100 WBCs NRBC x10^3 <0.01 10*3/L GRAN MAT (NEUT) % 78.4 % IMM GRAN % 0.50 % LYMPH % 12.5 % MONO % 6.1 % EOS % 2.1 % BASO % 0.4 % GRAN MAT x10^3(ANC) 6.43 1.88 - 7.09 10*3/uL IMM GRAN x10^3 0.04 0.00 - 0.06 10*3/uL LYMPH x10^3 1.02 (L) 1.32 - 3.29 10*3/uL MONO x10^3 0.50 0.33 - 0.92 10*3/uL EOS x10^3 0.17 0.03 - 0.39 10*3/uL BASO x10^3 0.03 0.01 - 0.07 10*3/uL MAGNESIUM Collection Time: 02/03/20 3:45 AM Result Value Ref Range MAGNESIUM 1.7 1.7 - 2.4 mg/dL PHOSPHORUS Collection Time: 02/03/20 3:45 AM Result Value Ref Range PHOSPHORUS 4.1 2.5 - 5.0 mg/dL CREATINE KINASE Collection Time: 02/03/20 3:45 AM Result Value Ref Range CK 21 (L) 33 - 194 U/L URIC ACID Collection Time: 02/03/20 3:45 AM Result Value Ref Range URIC ACID 3.4 2.9 - 6.0 mg/dL N-TERMINAL PRO-BNP Collection Time: 02/03/20 3:45 AM Result Value Ref Range NT-proBNP 850 (H) <=125 pg/mL AMMONIA, PLASMA Collection Time: 02/03/20 12:06 PM Result Value Ref Range AMMONIA <9 (L) 9 - 33 umol/L BLOOD CULTURE SCREEN Collection Time: 02/03/20 5:19 PM Specimen: VENOUS; Blood Result Value Ref Range Blood Culture-Aerobic Culture In Progress No growth Blood Culture-Anaerobic Culture In Progress No growth BLOOD CULTURE SCREEN Collection Time: 02/03/20 5:19 PM Specimen: VENOUS; Blood Result Value Ref Range Blood Culture-Aerobic Culture In Progress No growth Blood Culture-Anaerobic Culture In Progress No growth IMAGING - reviewed, pertinent results as below: No final results containing an impression from the past 48 hours were found. EKG: Hospital Encounter 01/31/20 EKG-12 LEAD EKG-12 LEAD EKG-12 LEAD ROUTINE EKG-12 LEAD ROUTINE Hospital Encounter 08/21/19 EKG-12 LEAD EKG-12 LEAD EKG-12 LEAD ROUTINE EKG-12 LEAD ROUTINE Hospital Encounter 06/25/19 EKG-12 LEAD EKG-12 LEAD EKG-12 LEAD ROUTINE EKG-12 LEAD ROUTINE Hospital Encounter 02/23/19 EKG-12 LEAD EKG-12 LEAD EKG-12 LEAD ROUTINE EKG-12 LEAD ROUTINE ASSESSMENT/PLAN Yessenia Aleman is a 59 year old female with PMH as listed above, admitted to the hospital with: Acute encephalopathy due to opoid withdrawal Bilateral upper ext weakness R/O central spinal cord syndrome Librium induced toxic encephalopathy (resolved Librium level now normal) Dehydration Depression Hypertension H/o chronic pancreatitis H/o chronic pain syndrome H/o peptic ulcer disease H/o Elevated librium levels revolved. Acute on chronic anemia Obesity Plan Admit to medical floor Neuro obs Avoid hepatoxic meds Hold Librium Hold [place] L/R IVF NPO [place] Monitor I's & O's BMP AM CBC AM Monitor for signs of depression Monitor for suicide ideation/plan DVT prophylaxis PPI Bp control MRI cervical spine w/o contrast. Neuro consult Physical therapy Consult Occupational therapy consult Patient has had upper ext weakness for 5 days now, neurology team already called and consulted from [facility]. MRI is pending and then will call neurosurgery JeseGeovanna AGACNP - 01/31/2020 6:49 PM CDT Date of Service: 01/31/2020 CHIEF COMPLAINT: Altered mental status, Tremors HISTORY OF PRESENT ILLNESS Yessenia Aleman is a 59 year old female with past medical history significant for chronic pancreatitis,Hypertension,Peptic ulcer disease,Biliary cirrhosis/ stenosis, status post biliary stent placement and Revision, Chronic pain syndrome, who presented to the emergency room with severe altered mental status, disorientation and lethargy. Patient was brought to the ED from [facility] and reports that patient has been on hydrocodone for a long time over a period of 10 years and precisely the 8 days ago she stopped taking hydrocodone and about 2 days ago she started showing symptoms of tremors, confusion and because of that, he decided to check her into [facility]. He also reports that patient not made urine for like 16 hours and that is similar to when she had sepsis and had to be admitted. CT of the head was completed and there is no evidence of acute hemorrhage chest x-ray did not show any cardiopulmonary disease. X-ray of the abdomen was was also completed which shows nonobstructive bowel gas. UA Shows Pyuria. Will obtain urine culture. Will hold [place] due to elvated lithium level. [place] level is also normal PAST MEDICAL HISTORY Past Medical History: Diagnosis Date Biliary duct stenosis s/p stent placement and revision x3 Chronic congestive splenomegaly Chronic pain Chronic pancreatitis History of cholecystectomy Hypertension Peptic ulcer Primary biliary cirrhosis PAST SURGICAL HISTORY Past Surgical History: Procedure Laterality Date APPENDECTOMY 2018 BILIARY STENT PLACEMENT 2010 CHOLECYSTECTOMY 2010 EXCISE BREAST CYST ALLERGIES Allergies Allergen Reactions Codeine Itching and Rash MEDICATIONS Current home medication list reviewed: Current Discharge Medication List STOP taking these medications lithium carbonate 300 mg capsule Comments: Reason for Stopping: temazepam 15 mg capsule Comments: Reason for Stopping: ursodioL 500 mg tablet Comments: Reason for Stopping: albuterol 90 mcg/actuation inhaler Comments: Reason for Stopping: pantoprazole 40 mg EC tablet Comments: Reason for Stopping: CREON 36,000-114,000- 180,000 unit CpDR Comments: Reason for Stopping: divalproex (DEPAKOTE) 500 mg EC tablet Comments: Reason for Stopping: escitalopram oxalate (LEXAPRO) 20 mg tablet Comments: Reason for Stopping: QUEtiapine (SEROQUEL) 400 mg tablet Comments: Reason for Stopping: tiZANidine 4 mg capsule Comments: Reason for Stopping: LOSARTAN POTASSIUM (LOSARTAN ORAL) Comments: Reason for Stopping: proMETHazine (PHENERGAN) 25 mg suppository Comments: Reason for Stopping: benzonatate 200 mg capsule Comments: Reason for Stopping: Nitrofurantoin&Nit. Macrocryst (MACROBID) 100 mg capsule Comments: Reason for Stopping: ondansetron (ZOFRAN) 4 mg tablet Comments: Reason for Stopping: traMADol (ULTRAM) 50 mg tablet Comments: Reason for Stopping: ondansetron 4 mg disintegrating tablet Comments: Reason for Stopping: ondansetron 4 mg disintegrating tablet Comments: Reason for Stopping: traMADol 100 mg 24 hr tablet Comments: Reason for Stopping: ondansetron 4 mg tablet Comments: Reason for Stopping: chlordiazePOXIDE 10 mg capsule Comments: Reason for Stopping: losartan 100 mg tablet Comments: Reason for Stopping: meloxicam 7.5 mg tablet Comments: Reason for Stopping: traMADol 50 mg tablet Comments: Reason for Stopping: HYDROcodone-acetaminophen 7.5-325 mg per tablet Comments: Reason for Stopping: proMETHazine 25 mg tablet Comments: Reason for Stopping: gabapentin (NEURONTIN) 300 mg capsule Comments: Reason for Stopping: FAMILY HISTORY Family History Problem Relation Age of Onset Thyroid Cancer Father Diabetes Brother Liver Cancer Brother Breast Cancer Paternal Grandmother Diabetes Brother Liver Cancer Brother Breast Cancer Daughter SOCIAL HISTORY Social History Socioeconomic History Marital status: Spouse name: Not on file Number of children: Not on file Years of education: 11 Highest education level: Not on file Occupational History Not on file Social Needs Financial resource strain: Somewhat hard Food insecurity Worry: Never true Inability: Never true Transportation needs Medical: No Non-medical: No Tobacco Use Smoking status: Never Smoker Smokeless tobacco: Never Used Substance and Sexual Activity Alcohol use: Never Frequency: Never Drug use: Never Sexual activity: Not on file Lifestyle Physical activity Days per week: Not on file Minutes per session: Not on file Stress: Not on file Relationships Social connections Talks on phone: Not on file Gets together: Not on file Attends amish service: Not on file Active member of club or organization: Not on file Attends meetings of clubs or organizations: Not on file Relationship status: Not on file Intimate partner violence Fear of current or ex partner: Not on file Emotionally abused: Not on file Physically abused: Not on file Forced sexual activity: Not on file Other Topics Concern Not on file Social History Narrative Not on file REVIEW OF SYSTEMS 12 point review of system was reviewed no changes except to HPI PHYSICAL EXAMINATION BP (!) 147/111 | Pulse 88 | Temp 36.6 C (97.8 F) (Temporal Artery) | Resp 20 | Wt 91 kg (200lb 9.9 oz) | SpO2 100% | BMI 39.18 kg/m PHYSICAL EXAM: General: Disoriented HEENT: Normocephalic LUNG; Clear to auscultation without wheezes or crackles Cardiovascular:RRR, S1 and S2 audible.pulses palpable ABD: None distended. Soft, NTND, Positive BS x4 quadrants Genitourinary: no distention EXTM: without Clubbing or edema SKIN: without rashes or lesions Neuro: Disoriented , having tremors Psych: Normal affect LABS - reviewed pertinent labs as below: CBC BMP PT/INR WBC (10*3/L) Date Value 01/31/2020 7.73 NA (mmol/L) Date Value 01/31/2020 134 (L) No results found for: PT RBC (10*6/L) Date Value 01/31/2020 3.11 (L) K (mmol/L) Date Value 01/31/2020 4.9 INR (no units) Date Value 08/21/2019 1.0 PLT (10*3/L) Date Value 01/31/2020 217 CALCIUM (mg/dL) Date Value 01/31/2020 9.5 HGB (g/dL) Date Value 01/31/2020 9.8 (L) CL (mmol/L) Date Value 01/31/2020 107 aPTT HCT (%) Date Value 01/31/2020 31.7 (L) BUN (mg/dL) Date Value 01/31/2020 30 (H) APTT Patient (Seconds) Date Value 08/21/2019 30 CREATININE (mg/dL) Date Value 01/31/2020 2.21 (H) IMAGING - reviewed, pertinent results as below: Hospital Encounter on 01/31/20 CT Head W/O Contrast Narrative Exam: CT HEAD WO CONTRAST Clinical History: Altered mental status (AMS), unclear cause Technique:Thin section CT brain with multiplanar reformats Comparison: CT brain dated 01/02/2019 Findings: Brainstem, cerebellum are within normal limits. Ventricles are normal. There are no extra-axial collections. There is no evidence of intracranial hemorrhage. No focal mass, midline shift, mass effect is identified. Several hemispheres are within normal limits. Aspect score: 10. Basal cisterns are normal. Bone windows demonstrate a normal appearance of the skull base. Minimal fluid is noted in the right mastoid air cells. The paranasal sinuses are within normal limits. Included portions of the orbits are normal. The cranium is within normal limits without evidence for fracture. Impression Impression: 1. No acute intracranial process. 2. Small right mastoid effusion. Chest 1 View Narrative Chest, one view History: AMS . Altered state of awareness Ordering Physician: KIRSTIN RON Findings: The lungs are clear without focal pneumonic consolidation, pleural effusion, or pneumothorax. The heart size is normal. The mediastinal contours are normal. No pulmonary edema. Several scattered calcified granulomas noted within both lungs. Impression Impression: No acute cardiopulmonary disease. RL: [id number] AFC: [id number] Abdomen 1 View Narrative CLINICAL INFORMATION: Abdominal pain. Altered state of awareness Ordering Physician: KIRSTIN RON FINDINGS: Supine view of the abdomen was submitted on 3 separate images. Small amount of gas within the stomach. Bladder surgically absent. Gas and stool noted in the colon. No dilated loops of small bowel. Impression 1. Nonobstructive intestinal bowel gas pattern. RL: [id number] AFC: [id number] SSMENT/PLAN Acute encephalopathy secondary to opioid withdrawal Metabolic acidosis Elevated lithium level Tremors likely due lithium overdose or opoid withdrawal and acute kidney injury Elevated lipase Acute kidney injury SIRS Acute on chronic anemia Dehydration Transaminitis due to underlying liver disease Pyuria History of chronic pancreatitis Elevated lipase Hypertension Peptic ulcer disease Biliary cirrhosis Chronic pain syndrome Admit inpatient Monitor on telemetry CT of the head is negative for any acute intracranial hemorrhage Chest xray negative for any cardiopulmonary process CT of the abdomen and pelvis shows aobstructive intestinal bowel Troponin is negative Hold lithium. Oxygen per protocol Received IV fluid sepsis protocol Continue IV hydration at 125 cc/hr Urine osmole is pending Continue thiamine [place] level is normal Vitamin B12 is Folate level pending Follow Urine culture and blood culture Avoid sedative meds Will resume home meds when fully oriented and able to swallow without risk of aspiration Prophylaxis: DVT- Lovenox Stress Ulcer: Not indicated Above assessment and plan discussed at length with patient, patient expressed full understanding. Questions and concerned addressed. Surrogate decision maker: , number in chart Level of care expected after discharge: Home Code status: Patient unable to make decision Disposition. Pending clinical improvement Associated attestation - Betsy Kenyon MD - 02/01/2020 3:59 AM CDTI have independently seen and evaluated this patient. In summary, patient with multiple comorbidities including PBC c/b biliary duct stenosis s/p stent placement, chronic pancreatitis, chronic pain syndrome (on opoid medication) who presented due to altered mental status. Will get fluid hydration forthe acute renal failure. Abdominal ultrasound to evaluate the elevated transaminitis, elevated lipase, and acute renal failure. Altered mental status appears to be due to a combination of opoids overuse and elevated lithium level. [place] is being held and levels will be repeated. Rest of plan as below. documented in this encounter Consult Notes Monet Dominguez MD - 02/04/2020 9:28 PM CDTAssociated Order(s): CONSULT NEUROLOGY CHIEF COMPLAINT: Altered mental status HISTORY OF PRESENT ILLNESS A 59 year old female with a PMH significant for HTN, arthritis, depression (on Librium), chronic pain syndrome (takes hydrocodone), peptic ulcer disease, chronic pancreatitis and bilary cirrhosis/stenosis post stent placement and revision.Patient stated she "felt weak and like she had the flu 5 days ago". Denies pain, numbness or tingling.Patient is a poor historian information obtained from medical record. Patient presented to [facility] ED on 01/31/2020 from [facility], [place], operated by [facility] by EMS and spouse. Spouse reports that patient has been on hydrocodone for approximately 10 years and she stopped ta ly hydrocodone 8 days prior to presentation. Spouse reported that on 01/29/2020 patient was confused and having tremors, he took her to [facility]. Patients spouse reported that patient hadnot void for approximately 16 hours and had similar episode in the past when she had sepsis requiring hospitalization. CT brain and Abdominal U/S was negative for acute changes, U/A pyuria, Urine culture negative. Patient was transferred today [facility] for neuro evaluation. PAST MEDICAL HISTORY Past Medical History: Diagnosis Date Biliary duct stenosis s/p stent placement and revision x3 Chronic congestive splenomegaly Chronic pain Chronic pancreatitis Depression History of cholecystectomy Hypertension Peptic ulcer Primary biliary cirrhosis Past Surgical History: Procedure Laterality Date APPENDECTOMY 2018 BILIARY STENT PLACEMENT 2009 CHOLECYSTECTOMY 2010 EXCISE BREAST CYST Family History Problem Relation Age of Onset Thyroid Cancer Father Diabetes Brother Liver Cancer Brother Breast Cancer Paternal Grandmother Diabetes Brother Liver Cancer Brother Breast Cancer Daughter ALLERGIES Allergies Allergen Reactions Codeine Itching and Rash MEDICATIONS No current facility-administered medications on file prior to encounter. Current Outpatient Medications on File Prior to Encounter Medication Sig Dispense Refill lithium carbonate 300 mg capsule Take 300 mg by mouth 2 (two) times daily. temazepam 15 mg capsule Take 15 mg by mouth at bedtime as needed for Insomnia. ursodioL 500 mg tablet Take 500 mg by mouth 2 (two) times daily. albuterol 90 mcg/actuation inhaler Inhale 2 Puffs every 4 (four) hours as needed for Wheezing, Shortness of Breath, Bronchospasm or Chest tightness. 8.5 g 0 chlordiazePOXIDE 10 mg capsule Take 10 mg by mouth 3 (three) times daily. pantoprazole 40 mg EC tablet Take 1 tablet by mouth 2 (two) times daily. 60 tablet 0 proMETHazine 25 mg tablet Take 1 tablet by mouth every 6 (six) hours as needed for N/V alternating with Ondansetron. 28 tablet 0 CREON 36,000-114,000- 180,000 unit CpDR Take by mouth 3 (three) times daily with meals. 0 divalproex (DEPAKOTE) 500 mg EC tablet Take 500 mg by mouth daily. escitalopram oxalate (LEXAPRO) 20 mg tablet Take 20 mg by mouth at bedtime. QUEtiapine (SEROQUEL) 400 mg tablet Take 400 mg by mouth at bedtime. tiZANidine 4 mg capsule Take 4 mg by mouth 2 (two) times daily. LOSARTAN POTASSIUM (LOSARTAN ORAL) Take 100 mg by mouth daily. proMETHazine (PHENERGAN) 25 mg suppository Insert 1 Suppository into rectum every 4 (four) hoursas needed for Nausea and Vomiting (N/V). 16 Suppository 0 benzonatate 200 mg capsule Take 1 capsule by mouth 3 (three) times daily as needed for Cough. 21capsule 0 Nitrofurantoin&Nit. Macrocryst (MACROBID) 100 mg capsule Take 1 capsule by mouth 2 (two) times daily. 14 capsule 0 ondansetron (ZOFRAN) 4 mg tablet Take 1 tablet by mouth every 8 (eight) hours as needed for Nausea and Vomiting (N/V). 12 tablet 0 traMADol (ULTRAM) 50 mg tablet Take 1 tablet by mouth every 6 (six) hours as needed for Pain (scale 7-10). 20 tablet 0 ondansetron 4 mg disintegrating tablet Take 2 tablets by mouth every 8 (eight) hours as needed for Nausea and Vomiting (N/V). 20 tablet 0 ondansetron 4 mg disintegrating tablet Take 1 tablet by mouth every 8 (eight) hours as needed for Nausea and Vomiting (N/V). 20 tablet 0 traMADol 100 mg 24 hr tablet Take 1 tablet by mouth daily. 15 tablet 0 ondansetron 4 mg tablet Take 1 tablet by mouth every 8 (eight) hours as needed for Nausea and Vomiting (N/V). 20 tablet 0 losartan 100 mg tablet Take 1 tablet by mouth daily. 30 tablet 0 meloxicam 7.5 mg tablet Take 7.5 mg by mouth daily. traMADol 50 mg tablet 1 by mouth every 4-6 hours as needed for pain 40 tablet 0 HYDROcodone-acetaminophen 7.5-325 mg per tablet Take 1 tablet by mouth every 6 (six) hours as needed (Pain scal 7-10). 20 tablet 0 gabapentin (NEURONTIN) 300 mg capsule Take 300 mg by mouth 3 (three) times daily. SOCIAL HISTORY Social History Socioeconomic History Marital status: Spouse name: Not on file Number of children: Not on file Years of education: 11 Highest education level: Not on file Occupational History Not on file Social Needs Financial resource strain: Somewhat hard Food insecurity Worry: Never true Inability: Never true Transportation needs Medical: No Non-medical: No Tobacco Use Smoking status: Never Smoker Smokeless tobacco: Never Used Substance and Sexual Activity Alcohol use: Never Frequency: Never Drug use: Never Sexual activity: Not on file Lifestyle Physical activity Days per week: Not on file Minutes per session: Not on file Stress: Not on file Relationships Social connections Talks on phone: Not on file Gets together: Not on file Attends amish service: Not on file Active member of club or organization: Not on file Attends meetings of clubs or organizations: Not on file Relationship status: Not on file Intimate partner violence Fear of current or ex partner: Not on file Emotionally abused: Not on file Physically abused: Not on file Forced sexual activity: Not on file Other Topics Concern Not on file Social History Narrative Not on file REVIEW OF SYSTEMS (-)=Negative,(+)=Positive General: (-) fever, (-) chills, (-) weight loss Skin: (-) rash, (-) lesion HEENT: (-) headache, (-) change in vision, (-) sore throat Neck: (-) pain, (-) difficulty swallowing, (-) mass Heme: (-) bleeding disorder Resp: (-) cough, (-) shortness of breath, (-) wheezing Cardio: (-) chest pain, (-) palpitations, (-) syncope GI: (-) abdominal pain, (-) vomiting, (-) diarrhea : (-) dysuria, (-) hematuria, (-) increased frequency Endo: (-) heat intolerance, (-) diabetes, (-) cold intolerance Neuro: (-) numbness, (+) weakness, (-) change in speech Back: (-) pain, (-)spasms FATMATA: (-) muscle pain, (-) joint pain, (-) claudication (+) weakness Psych: (-) anxiety, (+) depression, (-) psychiatric disorder PHYSICAL EXAMINATION Vitals O2 sat: SpO2 readings for the past 24 hrs: SpO2 02/02/20 2344 100 % 02/03/20 0316 100 % 02/03/20 0728 100 % 02/03/20 0804 95 % 02/03/20 1017 98 % 02/03/20 1133 96 % 02/03/20 1925 98 % I & O: Intake/Output Summary (Last 24 hours) at 02/03/20202104 Last data filed at 02/03/2020 0800 Gross per 24 hour Intake 820 ml Output 900 ml Net -80 ml Pain Scale: General: Lethargic, obeys commands, answers simple questions.no apparent distress. Affect flat. HEENT: normocephalic atraumatic, pupils equal, round, reactive to light, EOMs intact. Neck: supple, no lymphadenopathy, no bruits, no JVD Lungs: symmetrical chest expansion. clear to auscultation bilaterally, no crackles, no wheezes, cough is strong and effective Cardio: regular rate and rhythm, no murmurs, no gallops Abdomen: soft; non-tender; non-distended; normoactive bowel sounds Extremities: no clubbing, cyanosis, or edema Skin: no rashes Neuro: Cranial nerves 1 not tested. II-X, XII intact, XI diminished. Sensation decreased in lower extermities. Muscle strength in bilateral upper extermities 5-/5 and bilateral lower extremities 5-/4. Deep tendon reflex 1+ in bilateral upper extremities and 2+ in bilateral lower extremities. LABS - reviewed pertinent labs as below: Recent Results (from the past 48 hour(s)) COMP. METABOLIC PANEL (69106) Collection Time: 02/02/20 3:21 AM Result Value Ref Range NA 129 (L) 135 - 145 mmol/L K 3.0 (L) 3.5 - 5.0 mmol/L CL 100 98 - 108 mmol/L CO2 TOTAL 22 (L) 23 - 31 mmol/L AGAP 7 2 - 16 BUN 8 7 - 23 mg/dL GLUCOSE 632 (HH) 70 - 110 mg/dL CREATININE 0.54 0.50 - 1.04 mg/dL TOTAL BILI 1.0 0.1 - 1.1 mg/dL CALCIUM 7.9 (L) 8.6 - 10.6 mg/dL T PROTEIN 5.3 (L) 6.3 - 8.2 g/dL ALBUMIN 2.7 (L) 3.5 - 5.0 g/dL ALK PHOS 562 (H) 34 - 122 U/L ALTv 138 (H) 5 - 35 U/L AST(SGOT) 61 (H) 13 - 40 U/L eGFR Calculation (Non-) 116.4 mL/min/1.73m2 eGFR Calculation () 141.0 mL/min/1.73m2 CBC WITH DIFF Collection Time: 02/02/20 3:21 AM Result Value Ref Range WBC 6.58 4.30 - 11.10 10*3/L RBC 2.63 (L) 3.93 - 5.25 10*6/L HGB 8.2 (L) 11.6 - 15.0 g/dL HCT 26.3 (L) 35.7 - 45.2 % MCV 100.0 (H) 80.6 - 95.5 fL MCH 31.2 25.9 - 32.8 pg MCHC 31.2 (L) 31.6 - 35.1 g/dL RDW-SD 47.2 39.0 - 49.9 fL RDW-CV 13.1 12.0 - 15.5 % PLT 201 166 - 358 10*3/L MPV 9.7 9.5 - 12.9 fL NRBC/100 WBC 0.0 0.0 - 10.0 /100 WBCs NRBC x10^3 <0.01 10*3/L GRAN MAT (NEUT) % 78.6 % IMM GRAN % 0.50 % LYMPH % 13.1 % MONO % 5.5 % EOS % 2.0 % BASO % 0.3 % GRAN MAT x10^3(ANC) 5.18 1.88 - 7.09 10*3/uL IMM GRAN x10^3 0.03 0.00 - 0.06 10*3/uL LYMPH x10^3 0.86 (L) 1.32 - 3.29 10*3/uL MONO x10^3 0.36 0.33 - 0.92 10*3/uL EOS x10^3 0.13 0.03 - 0.39 10*3/uL BASO x10^3 <0.03 0.01 - 0.07 10*3/uL LIPASE Collection Time: 02/02/20 3:21 AM Result Value Ref Range LIPASE 140 0 - 220 U/L LITHIUM Collection Time: 02/02/20 3:21 AM Result Value Ref Range [place] 0.5 (L) 0.6 - 1.2 mmol/L GLYCOSYLATED HEMOGLOBIN (A1C) Collection Time: 02/02/20 3:21 AM Result Value Ref Range HGB A1C 4.5 4.0 - 6.0 % POCT GLUCOSE (AUTOMATED) Collection Time: 02/02/20 6:24 AM Result Value Ref Range POCT GLU 138 (H) 70 - 110 mg/dL LITHIUM Collection Time: 02/02/20 6:31 AM Result Value Ref Range [place] 0.4 (L) 0.6 - 1.2 mmol/L LIPASE Collection Time: 02/02/20 6:31 AM Result Value Ref Range LIPASE 203 0 - 220 U/L COMP. METABOLIC PANEL ([id number]) Collection Time: 02/02/20 6:31 AM Result Value Ref Range NA 135 135 - 145 mmol/L K 3.5 3.5 - 5.0 mmol/L CL 103 98 - 108 mmol/L CO2 TOTAL 25 23 - 31 mmol/L AGAP 7 2 - 16 BUN 8 7 - 23 mg/dL GLUCOSE 148 (H) 70 - 110 mg/dL CREATININE 0.55 0.50 - 1.04 mg/dL TOTAL BILI 1.2 (H) 0.1 - 1.1 mg/dL CALCIUM 9.4 8.6 - 10.6 mg/dL T PROTEIN 6.9 6.3 - 8.2 g/dL ALBUMIN 3.6 3.5 - 5.0 g/dL ALK PHOS 723 (H) 34 - 122 U/L ALTv 166 (H) 5 - 35 U/L AST(SGOT) 72 (H) 13 - 40 U/L eGFR Calculation (Non-) 113.9 mL/min/1.73m2 eGFR Calculation () 138.1 mL/min/1.73m2 LIPID PANEL ([id number])(TOTAL CHOLESTEROL, TRIGLYCERIDES, HDL) Collection Time: 02/02/20 6:31 AM Result Value Ref Range CHOL 343 (H) 120 - 200 mg/dL HDL 87 >50 mg/dL HDLC RATIO 3.9 <=4.5 TRIG 131 30 - 170 mg/dL LDL CHOL 230 (H) <=160 mg/dL VLDL 26 5 - 60 mg/dL CREATINE KINASE Collection Time: 02/02/20 6:31 AM Result Value Ref Range CK 37 33 - 194 U/L PROCALCITONIN Collection Time: 02/02/20 2:58 PM Result Value Ref Range Procalcitonin 0.05 <0.07 ng/mL PROTHROMBIN TIME / INR Collection Time: 02/02/20 2:58 PM Result Value Ref Range PROTIME PATIENT 12.7 12.0 - 14.7 Seconds INR 1.0 BLOOD CULTURE SCREEN Collection Time: 02/02/20 2:58 PM Specimen: VENOUS; Blood Result Value Ref Range Blood Culture-Aerobic (AA) No growth Culture positive. See Blood Culture Workup for additional information. Blood Culture-Anaerobic Culture In Progress No growth HEPATITIS B SURFACE ANTIBODY Collection Time: 02/02/20 2:58 PM Specimen: ARM, LEFT; Blood Result Value Ref Range HBsAB Negative HBsAb Semi-Quantitative 0.00 mIU/mL HEPATITIS B SURFACE ANTIGEN Collection Time: 02/02/20 2:58 PM Specimen: ARM, LEFT; Blood Result Value Ref Range HBsAg Negative Negative HBsAg Semi-Quantitative 0.14 HAV ANTIBODY (IGG AND IGM) Collection Time: 02/02/20 2:58 PM Specimen: ARM, LEFT; Blood Result Value Ref Range HAV Total Positive HAVT Semi-Quantitative 0.01 HCV ANTIBODY Collection Time: 02/02/20 2:58 PM Result Value Ref Range HCV Ab Negative HCV Semi-Quantitative 0.02 VALPROIC ACID, FREE Collection Time: 02/02/20 2:58 PM Result Value Ref Range Valproic Acid, Free <2.0 (L) 4.0 - 15.0 ug/mL VALPROIC ACID, TOTAL Collection Time: 02/02/20 2:58 PM Result Value Ref Range VALPROIC A <10 (L) 50 - 100 ug/mL CERULOPLASMIN Collection Time: 02/02/20 2:58 PM Result Value Ref Range CERULO 55 25 - 63 mg/dL ANTI-NUCLEAR ANTIBODY SCREEN Collection Time: 02/02/20 2:58 PM Result Value Ref Range LESLY Negative Negative BLOOD CULTURE WORKUP Collection Time: 02/02/20 2:58 PM Specimen: VENOUS; Blood Result Value Ref Range Gram stain Isolated from aerobic bottle Gram positive cocci BLOOD CULTURE SCREEN Collection Time: 02/02/20 3:19 PM Specimen: VENOUS; Blood Result Value Ref Range Blood Culture-Aerobic No growth at 24 hours No growth Blood Culture-Anaerobic No growth at 24 hours No growth COMP. METABOLIC PANEL ([id number]) Collection Time: 02/03/20 3:45 AM Result Value Ref Range NA 136 135 - 145 mmol/L K 3.6 3.5 - 5.0 mmol/L CL 104 98 - 108 mmol/L CO2 TOTAL 28 23 - 31 mmol/L AGAP 4 2 - 16 BUN 7 7 - 23 mg/dL GLUCOSE 138 (H) 70 - 110 mg/dL CREATININE 0.61 0.50 - 1.04 mg/dL TOTAL BILI 1.0 0.1 - 1.1 mg/dL CALCIUM 9.2 8.6 - 10.6 mg/dL T PROTEIN 6.6 6.3 - 8.2 g/dL ALBUMIN 3.5 3.5 - 5.0 g/dL ALK PHOS 584 (H) 34 - 122 U/L ALTv 131 (H) 5 - 35 U/L AST(SGOT) 49 (H) 13 - 40 U/L eGFR Calculation (Non-) 101.1 mL/min/1.73m2 eGFR Calculation () 122.5 mL/min/1.73m2 CBC WITH DIFF Collection Time: 02/03/20 3:45 AM Result Value Ref Range WBC 8.19 4.30 - 11.10 10*3/L RBC 3.07 (L) 3.93 - 5.25 10*6/L HGB 9.8 (L) 11.6 - 15.0 g/dL HCT 29.8 (L) 35.7 - 45.2 % MCV 97.1 (H) 80.6 - 95.5 fL MCH 31.9 25.9 - 32.8 pg MCHC 32.9 31.6 - 35.1 g/dL RDW-SD 47.2 39.0 - 49.9 fL RDW-CV 13.2 12.0 - 15.5 % PLT 268 166 - 358 10*3/L MPV 8.7 (L) 9.5 - 12.9 fL NRBC/100 WBC 0.0 0.0 - 10.0 /100 WBCs NRBC x10^3 <0.01 10*3/L GRAN MAT (NEUT) % 78.4 % IMM GRAN % 0.50 % LYMPH % 12.5 % MONO % 6.1 % EOS % 2.1 % BASO % 0.4 % GRAN MAT x10^3(ANC) 6.43 1.88 - 7.09 10*3/uL IMM GRAN x10^3 0.04 0.00 - 0.06 10*3/uL LYMPH x10^3 1.02 (L) 1.32 - 3.29 10*3/uL MONO x10^3 0.50 0.33 - 0.92 10*3/uL EOS x10^3 0.17 0.03 - 0.39 10*3/uL BASO x10^3 0.03 0.01 - 0.07 10*3/uL MAGNESIUM Collection Time: 02/03/20 3:45 AM Result Value Ref Range MAGNESIUM 1.7 1.7 - 2.4 mg/dL PHOSPHORUS Collection Time: 02/03/20 3:45 AM Result Value Ref Range PHOSPHORUS 4.1 2.5 - 5.0 mg/dL CREATINE KINASE Collection Time: 02/03/20 3:45 AM Result Value Ref Range CK 21 (L) 33 - 194 U/L URIC ACID Collection Time: 02/03/20 3:45 AM Result Value Ref Range URIC ACID 3.4 2.9 - 6.0 mg/dL N-TERMINAL PRO-BNP Collection Time: 02/03/20 3:45 AM Result Value Ref Range NT-proBNP 850 (H) <=125 pg/mL AMMONIA, PLASMA Collection Time: 02/03/20 12:06 PM Result Value Ref Range AMMONIA <9 (L) 9 - 33 umol/L BLOOD CULTURE SCREEN Collection Time: 02/03/20 5:19 PM Specimen: VENOUS; Blood Result Value Ref Range Blood Culture-Aerobic Culture In Progress No growth Blood Culture-Anaerobic Culture In Progress No growth BLOOD CULTURE SCREEN Collection Time: 02/03/20 5:19 PM Specimen: VENOUS; Blood Result Value Ref Range Blood Culture-Aerobic Culture In Progress No growth Blood Culture-Anaerobic Culture In Progress No growth IMAGING - reviewed, pertinent results as below: No final results containing an impression from the past 48 hours were found. EKG: Hospital Encounter 01/31/20 EKG-12 LEAD EKG-12 LEAD EKG-12 LEAD ROUTINE EKG-12 LEAD ROUTINE Hospital Encounter 08/21/19 EKG-12 LEAD EKG-12 LEAD EKG-12 LEAD ROUTINE EKG-12 LEAD ROUTINE Hospital Encounter 06/25/19 EKG-12 LEAD EKG-12 LEAD EKG-12 LEAD ROUTINE EKG-12 LEAD ROUTINE Hospital Encounter 02/23/19 EKG-12 LEAD EKG-12 LEAD EKG-12 LEAD ROUTINE EKG-12 LEAD ROUTINE ASSESSMENT/PLAN Yessenia Aleman is a 59 year old female with PMH as listed above, admitted to the hospital with: Metabolic/Toxic encephalopathy due to opoid withdrawal Bilateral upper ext weakness R/O central spinal cord syndrome Librium induced toxic encephalopathy (resolved Librium level now normal) Dehydration Depression Hypertension H/o chronic pancreatitis H/o chronic pain syndrome H/o peptic ulcer disease H/o Elevated librium levels revolved. Acute on chronic anemia Obesity Plan Admit to medical floor Neuro obs Avoid hepatoxic meds Hold Librium Hold [place] L/R IVF NPO [place] Monitor I's & O's BMP AM CBC AM Monitor for signs of depression Monitor for suicide ideation/plan DVT prophylaxis PPI Bp control MRI Brain&cervical spine w/o contrast. Physical therapy Consult Occupational therapy consult Roberto Alvares, OT - 02/04/2020 9:31 AM CDTAssociated Order(s): CONSULT ADULT OCCUPATIONAL THERAPY OT GENERAL EVALUATION Consult received via [employer], EMR reviewed and evaluation completed 02/04/20. Patient referred to occupational therapy for evaluation and treatment secondary to Altered mental status and Metabolic acidosis. Patient agreeable to participate in occupational therapy. Discharge Recommendations: Therapy Needs and Potential:- Patient would benefit from continued skilled occupational therapy services to address: Decline in basic activities of daily living, Decline in instrumental activities of daily living, Decline in cognition, Decreased strength, Decreased range of motion, Decreased endurance, Decreased coordination and Caregiver training - Patient demonstrates good potential to improve and meet therapy goals with further skilled occupational therapy services. - Patient appears motivated to improve their B/IADLs and return to their previous level of function. - Patient demonstrates ability to tolerate at least 30-60 minutes of active participation in occupational therapy. - Patient able to follow commands: 1-step Yes, Multi-step No, Inconsistencies Yes Challenges to Home Transition:- Requires physical assistance for BADLS - Requires physical assistance for IADLS - Requires supervision or verbal cues for BADLS - Requires supervision or verbal cues for IADLS - Decreased safety awareness/judgement - Increased risk of falls Equipment Recommendations:Bedside commode, Shower chair, Grab bars, Hand held shower and I certify that Yessenia Aleman is under my care and that I had a [id number] encounter with this patient on: 02/04/20 . The primary reason for the durable medical equipment: limited functional mobility, high fall/safety risk. I am recomending that, based on my findings, the following is medically necessary durable medical equipment: 3 in 1 bedside commode. Height: Ht Readings from Last 1 Encounters: 12/18/19 5' (1.524 m) Weight: Wt Readings from Last 1 Encounters: 02/03/20 177 lb 6.4 oz (80.5 kg) Duration of need: 99 months. Patient does not have access to regular toilet facilities because he/she is confined to: A single room. PLAN OF CARE: At least 2x/week Precautions: Weight bearing status: NA General: PPE Utilized: Gloves and Surgical mask and Fall Bracing: N/A Current Occupational Performance and/or Treatment: Feeding: NT due to NPO order Grooming: SBA/Setup to wash face using R hand, extra time to complete due to decreased coordinationand bradykinetic movement LB Dressing: Dependent to manage USHA socks Toileting Hygiene: Dependent, clark catheter Functional Mobility: supine >sit EOB min A with verbal cueing for technique, patient tolerates sitting EOB approx 10 minutes SBA however reports increasing nausea and dizziness and requests to return supine, patient scoots towards HOB SBA with verbal cueing for technique using R UE and B LEs. Pt able to activate L and R deltoids to lift L UE and R UE without assist for postioning of pillows for joint protection and edema management. Patient/caregiver educated on: ADL training (patient encouraged for active participation and incorporation of BUEs during ADLs), AROM, Dexterity/coordination, Edema management, General strengthening, Re laxation/breathing techniques, Role of OT and Safety awareness BP monitored throughout session due to patient reporting increased nausea and dizziness with EOB activity: BP at rest: 149/99 BP seated EOB: 163/116, patient reports nausea BP seated EOB after 2 mins: 172/112, patient still symptomatic reporting increased nausea and dizziness. Nurse notified. Patient left semireclining in bed with call villar in reach. USHA UE elevated. Nursing notified of BP and increasing nausea. Please, see full evaluation below for more detail. OT EVALUATION: 59 year old female Admit date: 01/31/2020 Date of onset: 1 week prior to admit Admit Diagnosis: Altered mental status Metabolic acidosis OT Diagnosis: Impaired BADL independence, Impaired IADL independence, Weakness, Activity intolerance, Decreased endurance, Impaired self-care mobility, Decreased UE Function USHA, Reduced joint ROM, Impaired cognition and UE Edema PMH: Past Medical History: Diagnosis Date Biliary duct stenosis s/p stent placement and revision x3 Chronic congestive splenomegaly Chronic pain Chronic pancreatitis Depression History of cholecystectomy Hypertension Peptic ulcer Primary biliary cirrhosis PSH: Past Surgical History: Procedure Laterality Date APPENDECTOMY 2018 BILIARY STENT PLACEMENT 2010 CHOLECYSTECTOMY 2010 EXCISE BREAST CYST PAIN: Before assessment: 010 After assessment: 0 OCCUPATIONAL ROLES/HOME ENVIRONMENT: Home environment: Single story home with . Bathroom access: Yes Bathroom setup: Shower Occupation(s): Unemployed Function prior to admission: Household ambulation, Community ambulation, Independent with BADLs and Independent with IADLs Equipment prior to admission: None PERFORMANCE SKILLS/FACTORS: UE Muscle Tone: left Hypertonicity MAS = 1 UE ROM: B UE PROM WFL With formal assessment, minimal AROM in all R UE joints except finger flex/ext lacking 1/2 and full thumb flex/ext. However, functionally patient demonstrates improved AROM with shoulder lacking 3/4, elbow flex/ext lacking 1/4, wrist flex/ext lacking 1/2, finger flex/ext lacking 1/4, full thumb flex /ext With formal assessment, minimal AROM in all L UE joints except finger flex/ext lacking 3/4. However, functionally patient demonstrates improved AROM with shoulder, elbow, wrist, and finger/thumb flex/ext lacking approx 3/4 UE Strength: With formal assessment, R UE grossly 2-/5 however functionally patient demos R UE strength at least 3-/5 grossly except thumb flex/ext 3/5. With formal assessment, L UE grossly 1/5 except wrist and finger flex/ext 2-/5, however functionally patient demos R UE strength at least 3-/5 deltoid and 2-/5 grossly. Hand dominance: right Dexterity/Coordination: bilateral Impaired, BUE motor planning impaired Endurance - Sitting: Fair - Standing: NT Sitting Balance - Static: Fair+ Dynamic: Fair Standing: Balance - Static NT Dynamic: NT Dizziness: Yes, increased with time spent sitting EOB Skin Integrity: No breakdown noted Sensation: Inconsistent responses with formal assessment, however patient appears to demo intact BUEdeep pressure and protective sensation though light touch appears impaired throughout L UE Oral Motor: WFL Communication: Able to verbalize needs Yes Other: Pt demos slow processing and response time with low mumbling voice and simple verbal responses given Vision: WFL Yes Other: patient reports she doesn't have glasses, however states she "is suppose to" get them. Hearing: good; no issues reported COGNITION: Orientation: person and place Follows Commands: 1-step Yes Multi-step No Inconsistencies Yes Safety Awareness/Judgment: Fair and Requires frequent cueing PROBLEM LIST: Decreased independence with ADL, Decreased functional ROM, Decreased strength/endurance for functional activity, Sensory deficits, Impaired safety awareness and Impaired Cognition REHAB POTENTIAL/PROGNOSIS: fair PATIENT/FAMILY GOALS: to get better and return to PLOF TREATMENT/INTERVENTION PLAN: Functional motor treatment, Patient/Caregivier Education, Equipment recommendations, Daily living activities, Therapeutic exercises, Neuromuscular Re-Education, Sensory integration and Cognitive retraining GOAL(S): By discharge, patient will increase independence in daily living skills as follows: 1 Patient will perform 3 in 1 BSC transfer with minimal assistance. 2 Patient will perform UB dressing with moderate assistance. 3 Patient will complete oral care with minimal assist while seated. 4 Patient will increase endurance for functional activity as evidenced by ability to sustain 20 minutes of active participation EOB or OOB. 5 Patient/caregiver will verbalize/demonstrate understanding/proficiency in the following home programs: Adaptive equipment , ADL training, Compensatory techniques/adaptive strategies, 6 Dexterity and FM/GM coordination, 7 Edema management and 8 Fall prevention PATIENT-FAMILY TEACHING Patient provided with preferred teaching of verbal information and demonstration on ADL training, AROM, Dexterity/coordination, Edema management, General strengthening, Relaxation/breathing techniques,Role of OT and Safety awareness. Barriers to learning include physical limitations, cognitive limitations and emotional. Verbal instruction teaching provided. Individual needs reinforcement of teaching. REAGAN Jurado Pager [phone] Total Timed Treatment Codes: 31 Min Total Treatment Time: 44 Min Patient Complexity Level High - An occupational therapy evaluation of high complexity was completed using the above tests and measures. The following information was obtained: An occupational profile and medical and therapy history, including review of medical and/or therapy records and extensive nadir tional review of physical, cognitive, or psychosocial history related to current functional performance, Various standardized and non-standardized assessments were used to identify at least 5 or more performance deficits related to physical, cognitive, or psychosocial skills that result in activity limitations and/or participation restrictions and Clinical decision-making is of high analytic complexity, which includes an analysis of the patient profile, analysis of data from comprehensive assessment(s), and consideration of multiple treatment options. Patient present with comorbidities that affect occupational performance. Significant modification of tasks or assistance (e.g., physical or verbal) with assessment(s) is necessary to enable patient to complete evaluation component. Kaykay Snyder PT - 02/04/2020 9:30 AM CDTAssociated Order(s): CONSULT ADULT PHYSICAL THERAPY I was present and participated throughout the session and agree with the documentation as written bythe student therapist on the encounter dated 02/04/2020. Kaykay Castle, PT, DPT [place] License #: [id number] Patient agreeable to working with physical therapy. Patient met Semi reclined in bed. PHYSICAL THERAPY RE-EVALUATION Consult received, chart reviewed and evaluation complete this date. Patient is referred to PT for evaluation and treatment. Patient is a 59 year old female who presents to hospital for Altered mental status and toxic metabolic encephalopathy likely due to opiate withdrawal. Patient has been taking [place] for approximately 10 years and stopped less than 2 weeks ago. Spouse reported tremors/confusion starting 01/29/2020. Patient was transferred to [facility] ED on 01/31/2020 after patient received treatment at [facility] detox center. Patient transferred from [facility] to [facility] for neuroworkup c/ new PT consult. Discharge Recommendations: Therapy Needs and Potential: Patient would benefit from continued physical therapy services to address: decline in bed mobility decline in transfers decreased strength Patient appears motivated to improve their functional mobility and return to their previous levelof function. Patient exhibits limited activity tolerance. Patient exhibits limited ability to follow commands. Challenges to Home Transition: increased risk of falls decreased caregiver availability decreased ability to tolerate sitting position Equipment recommendations: wheelchair (patient does not own) Current Functional Status and/or Treatment:Functional mobility training and Patient/Family/Caregivereducation. Occupational therapy present throughout treatment. Bed Mobility: Rolling: Minimal assist x 2 therapists; Patient was unable to maintain sidelying position withoutexternal support Bridging: Modified independent Supine-sit: Minimal assist; patient was able to sit up by pushing off R elbow with elevated bed surface Sit to supine: Minimal assist x 1 therapist; patient required assistance at the legs Scooting to edge of bed: Modified independent Repositioned patient to head of bed: Modified independent. Transfers: Unable to attempt stand at EOB due to symptomatic increase in blood pressure (diastolic pressure > 110 mmHg). Patient was not safe to perform OOB activities at that time. Therapeutic exercise: patient educated in Deep breathing, General strengthening, Relaxation/breathing techniques and role of PT and POC., instructed patient in the following: ankle pumps, straight leg raises, patient/caregiver demonstrates understanding of instructions. Orthostatic assessment: Last BP rest: 149/99 BP at EOB: 163/116, patient symptomatic c/o nausea, "I feel really bad" BP at EOB after 2 mins: 172/112, patient still symptomatic, "I feel like I'm going to pass out, I'm sorry." After session, patient Semi reclined in bed. Call button provided. OT placed B arm support with pillows. Patient did not complain of symptoms after reclined in bed, RN notified of patient status. PLAN OF CARE: At least 3 times per week, once or twice a day (while in hospital) per patient's tolerance and medical needs. See below for complete details. Admit Date: 01/31/2020 Hospital Diagnosis:Altered mental status Metabolic acidosis PT Diagnosis: Weakness, Malaise/fatigue and Vertigo/dizziness Weight Bearing Precaution: NA General Precautions: PPE used:Gloves and Surgical mask, General, Fall,Clark catheter, IV (connected,running) Bracing/Cast present or required:N/A PMH: Past Medical History: Diagnosis Date Biliary duct stenosis s/p stent placement and revision x3 Chronic congestive splenomegaly Chronic pain Chronic pancreatitis Depression History of cholecystectomy Hypertension Peptic ulcer Primary biliary cirrhosis PSH: Past Surgical History: Procedure Laterality Date APPENDECTOMY 2018 BILIARY STENT PLACEMENT 2010 CHOLECYSTECTOMY 2010 EXCISE BREAST CYST Prior Living Situation: lives with their spouse and house, no stairs or steps up to home DME: No device Prior level of Mobility: Patient was independent with ADL/IADLs prior to last week where she states she was only able to do house hold ambulation without an assistive device Subjective: "I just want to go back to normal, I'm sorry I can't do anything." Patient was emotionally distressed and crying at end of session. Patient was able to calm down before PT/OT left. Patient/Family Goals: To get back to normal Patient/Family verbalizes understanding of condition: Yes PAIN: denies pain COMMUNICATION Primary Language: Barbadian Able to Verbalize needs: Yes Vision:glasses Hearing:good; no issues reported ORIENTATION/COGNITION: Oriented to: person, place, date/time and situation Awake: Yes Alert: Yes Dizzy: Yes, at EOB Follows Commands: Yes 1-Step Yes Multi-Step Variable Inconsistent: Yes NEUROLOGICAL Light Touch: within functional limits bilateral LE Heel to avendano: NT Tone: (+) clonus on L foot, slight rigidity noted on R LE BALANCE: Sitting: Static: Fair+ Dynamic: Fair Standing: Static: NT Dynamic: NT RANGE OF MOTION: within functional limits bilateral LE STRENGTH: 3/5 (F), bilateral LE through gross motor screening, patient unable to follow more complexinstructions. ENDURANCE: NT, Room air SKIN INTEGRITY: visually intact PROBLEM LIST: Decline in bed mobility and Decreased strength ASSESSMENT: Patient is a 59 year old female seen secondary to the above listed diagnosis. Patient would benefit from continued PT to address the above listed deficits to maximize independence and safety with functional mobility. Rehabilitation Potential: guarded Goals: The following goals are to maximize independence and safety with functional mobility to eventually return to prior living situation and prior functional status. 1. Rolling: Modified independent Supine-sit: Modified independent 2. Sit to stand: Minimal assist using Rolling Walker 3. Demonstrate or verbalize understanding of home exercise program in order to continue with their rehab on their own. 4. Ambulation goal to be determined when appropriate. Treatment Plan: Gait training, Therapeutic exercise, Transfer training, Bed mobility training and Safety education, patient/caregiver education PATIENT EDUCATION: Patient provided with preferred teaching of verbal information on role of PT, plan of care. Shows readiness to learn. Verbal instruction teaching provided. Individual is able to readand verbalizes understanding of teaching provided. Total Time Tx Codes in Minutes: 35 min Total Treatment Time in Minutes: 45 min JOANNE Benedict NTBarbara Davenport, PT - 02/03/2020 10:00 AM CDTAssociated Order(s): CONSULT ADULT PHYSICAL THERAPY; CONSULT ADULT PHYSICAL THERAPY 02/03/2020 Patient agreeable to working with physical therapy. Patient met Semi reclined in bed. PHYSICAL THERAPY EVALUATION Consult received, chart reviewed and evaluation complete this date. Patient is referred to PT for evaluation and treatment. Patient is a 59 year old female who presents to hospital for Altered mental status Metabolic acidosis and weakness. Discharge Recommendations: Therapy Needs and Potential: decline in bed mobility, decline in transfers, decline in gait and/or balance, decreased strength and decreased endurance Challenges to Home Transition: increased risk of falls decreased safety awareness Equipment recommendations: rolling walker Current Functional Status and/or Treatment:Functional mobility training, Transfer training, Gait training, Patient/Family/Caregiver education and Therapeutic exercise: PT reviewed PT POC, Safety precautions and proper method to use walker. Bed Mobility: Rolling: CGA Bridging: Modified independent Scooting in supine: Modified independent Supine-sit: Minimal assist Scooting to edge of bed: CGA Sit to supine: SBA/Setup. After session, patient Semi reclined in bed. Call button provided. RN made aware of status. PLAN OF CARE: At least 3 times per week, once or twice a day (while in hospital) per patient's tolerance and medical needs. See below for complete details. Admit Date: 01/31/2020 Hospital Diagnosis:Altered mental status Metabolic acidosis PT Diagnosis: Difficulty walking, Weakness, Malaise/fatigue and Pain Weight Bearing Precaution: NA General Precautions: PPE used:Gloves and Surgical mask, Fall,Clark catheter, IV LUE Bracing/Cast present or required:N/A PMH: Past Medical History: Diagnosis Date Biliary duct stenosis s/p stent placement and revision x3 Chronic congestive splenomegaly Chronic pain Chronic pancreatitis History of cholecystectomy Hypertension Peptic ulcer Primary biliary cirrhosis PSH: Past Surgical History: Procedure Laterality Date APPENDECTOMY 2018 BILIARY STENT PLACEMENT 2010 CHOLECYSTECTOMY 2010 EXCISE BREAST CYST Prior Living Situation: lives with their spouse and house, per patient response, patient is a poor historian. DME: No device Prior level of Mobility: house hold ambulation Subjective: " My stomach hurts, I am embarrassed, I think I went on myself." Patient/Family Goals: Get better Patient/Family verbalizes understanding of condition: No Patient currently altered, confused at themoment. PAIN: -Pain Description: aching and sharp -Pain Location: abdomen -Pain rating before treatment: does not rate, Per VAS= 8/10, After treatment: does not rate, per VAS= 4/10 -Pain Management: Nursing Notified and Repositioning Provided COMMUNICATION Primary Language: Barbadian Able to Verbalize needs: Yes Vision:good; no issues reported Hearing:good; no issues reported ORIENTATION/COGNITION: Oriented to: person, place and pt able to say she is in [place] Awake: Yes Alert: Yes Dizzy: Yes when changed position to sit up edge of bed. Follows Commands: Yes 1-Step Yes Multi-Step Yes Inconsistent: No NEUROLOGICAL Light Touch: within functional limits bilateral LE BALANCE: Sitting: Static: Good Dynamic: Good Standing: Static: NT Dynamic: NT RANGE OF MOTION: within functional limits bilateral LE, BUEs= patient with decreased ROM of hands but able to move shoulder and elbows. STRENGTH: 4-/5 (G-), bilateral LE ENDURANCE: Fair, Room air SKIN INTEGRITY: intact, see arts administrator for further details. PROBLEM LIST: Decline in bed mobility, Decline in gait, Decline in transfers, Decreased strength, Decreased endurance, Safety awareness deficits and Pain ASSESSMENT: Patient is a 59 year old female seen secondary to the above listed diagnosis. Patient would benefit from continued PT to address the above listed deficits to maximize independence and safety with functional mobility. Rehabilitation Potential: fair Goals: The following goals are to maximize independence and safety with functional mobility to eventually return to prior living situation and prior functional status. Upon discharge, patient and/or family will demonstrate the followin. Rolling: Modified independent Supine-sit: Modified independent Sit to supine: Modified independent 2. Sit to stand: CGA, SBA/Setup using Rolling Walker Stand to sit: CGA, SBA/Setup using Rolling Walker 3. SBA/Setup with ambulation, Feet: 50 using least assistive device. Treatment Plan: Gait training, Therapeutic exercise, Transfer training, Balance training, Bed mobility training, Equipment needs assessment, Safety education, patient/caregiver education and Pain management PATIENT EDUCATION: Patient provided with preferred teaching of verbal information and demonstration on role of PT, plan of care, and goals. Shows readiness to learn. Verbal instruction teaching provided. Individual is able to read and verbalizes understanding of teaching provided and accurately returns demonstration of skill. Total Time Tx Codes in Minutes: 15 min Total Treatment Time in Minutes: 23 min Required Components in Determining Evaluation Level Components for Eval Level Low Moderate High History No comorbidities 1-2 comorbidities or personal factors 3 or more comorbidities or personal factors x Body Systems 1-2 elements 3 or more elements x 4 or more elements Clinical Presentation Stable Evolving x Unstable Clinical Decision Making x Barbara Weber, PT [place] PT License [id number] [facility] Department (phone) (fax) Kenroy Hawkins MD - 02/02/2020 9:22 PM CDTAssociated Order(s): CONSULT GASTROENTEROLOGY Gastroenterology IP Consult Requesting Physician: Pasha Hinojosa MD Reason for Consult: Change on mental status : 1960 Date of Service: 02/02/2020 CHIEF COMPLAINT: We were asked to see Yessenia Aleman 59 year old female who presents with change in mental status. History of Present Illness This is a 59 year old woman who was abusing [place] and stopped completely 8 days prior to admission. 3 days prior to admission she was checked in into rehab for tremors and change in mentation. She onlydeteriorated further and was admitted to [facility] for further evaluation. She was noted to have LOLLY and hyponatremia , which have currently resolved but patient is still confused and poorly cooperative and lethargic. Review of her chart reveals that she has longstanding hx of bilary issues and abnormal LFT's since at least 2009 when she had a cholecystectomy and underwent multiple stents in [place] then transferred to the care of Dr Stiles in [place] who placed multiple stents, including metallic stents for presumed biliary stenosis. She also was given a diagnosis of possible biliary cirrhosis followed by [facility] Hepatology. I could not find documentation of liver biopsy or retrieve previous serology. PAST MEDICAL HISTORY Past Medical History: Diagnosis Date Biliary duct stenosis s/p stent placement and revision x3 Chronic congestive splenomegaly Chronic pain Chronic pancreatitis History of cholecystectomy Hypertension Peptic ulcer Primary biliary cirrhosis Past Surgical History: Procedure Laterality Date APPENDECTOMY 2018 BILIARY STENT PLACEMENT 2010 CHOLECYSTECTOMY 2010 EXCISE BREAST CYST FAMILY HISTORY Family History Problem Relation Age of Onset Thyroid Cancer Father Diabetes Brother Liver Cancer Brother Breast Cancer Paternal Grandmother Diabetes Brother Liver Cancer Brother Breast Cancer Daughter Allergies Codeine MEDICATIONS Current Facility-Administered Medications Medication Dose Route Frequency Last Rate Last Dose amLODIPine (NORVASC) tablet 10 mg 10 mg Oral DAILY 10 mg at 02/02/20 1730 D5W 0.45% NaCl (1/2NS) 1 L + KCL 20 mEq IV Infusion CONTINUOUS 50 mL/hr at 02/02/20 1616 labetaloL (NORMODYNE) injection 10 mg 10 mg Slow IV Push Q4HPRN nvoaul-xocqjuqc-wpcprcm (PANCREAZE) 16,800-56,800- 98,400 unit capsule 1 capsule 1 capsule OralTID MEALS 1 capsule at 02/02/20 1615 losartan (COZAAR) tablet 100 mg 100 mg Oral DAILY 100 mg at 02/02/20 1431 cyanocobalamin (VITAMIN B12) injection 1,000 mcg 1,000 mcg Subcutaneous Q24H 1,000 mcg at 02/02/20 0930 hydralAZINE (APRESOLINE) injection 10 mg 10 mg Slow IV Push Q4HPRN 10 mg at 02/02/20 1707 enoxaparin (LOVENOX) injection 30 mg 30 mg Subcutaneous DAILY 30 mg at 02/02/20 0930 SOCIAL HISTORY Social History Tobacco Use Smoking Status Never Smoker Smokeless Tobacco Never Used Social History Substance and Sexual Activity Alcohol Use Never Frequency: Never Social History Substance and Sexual Activity Drug Use Never REVIEW OF SYSTEMS (from the chart) General: negative Skin: negative HEENT: negative Neck: negative Heme: negative Resp: negative Cardio: negative GI: (+) per HPI : negative PHYSICAL EXAMINATION Patient Vitals for the past 12 hrs: BP Temp Temp src Pulse Resp SpO2 02/02/20 1950 18 95 % 02/02/20 1900 (!) 170/112 35.9 C (96.7 F) TEMPORAL ART 75 18 98 % 02/02/20 1658 (!) 213/110 02/02/20 1656 (!) 200/122 36.9 C (98.5 F) 79 18 99 % 02/02/20 1234 (!) 191/111 18 02/02/20 1103 (!) 206/113 36.9 C (98.5 F) 74 18 100 % Intake/Output Summary (Last 24 hours) at 02/02/20202121 Last data filed at 02/02/2020 1840 Gross per 24 hour Intake 100 ml Output 2500 ml Net -2400 ml General: alert and oriented x 0 (person, place, date/time and situation); no apparent distress. Obese HEENT: normocephalic atraumatic Neck: supple, no lymphadenopathy, no bruits, no JVD Lungs: clear to auscultation bilaterally Cardio: S1, S2 normal; no murmurs, rubs or gallops Abdomen: soft; non-tender; non-distended; normoactive bowel sounds Extremities: no clubbing, cyanosis, or edema Skin: no rashes Neuro: no focal deficits, lethargic . Does not follow commands LABORATORY CBC BMP LFT/A/L WBC (10*3/L) Date Value 02/02/2020 6.58 NA (mmol/L) Date Value 02/02/2020 135 ALBUMIN (g/dL) Date Value 02/02/2020 3.6 RBC (10*6/L) Date Value 02/02/2020 2.63 (L) K (mmol/L) Date Value 02/02/2020 3.5 T PROTEIN (g/dL) Date Value 02/02/2020 6.9 PLT (10*3/L) Date Value 02/02/2020 201 CL (mmol/L) Date Value 02/02/2020 103 TOTAL BILI (mg/dL) Date Value 02/02/2020 1.2 (H) HGB (g/dL) Date Value 02/02/2020 8.2 (L) CO2 TOTAL (mmol/L) Date Value 02/02/2020 25 BILI UNCON (mg/dL) Date Value 01/31/2020 0.4 HCT (%) Date Value 02/02/2020 26.3 (L) BUN (mg/dL) Date Value 02/02/2020 8 BILI CONJ (mg/dL) Date Value 01/31/2020 0.0 MCV (fL) Date Value 02/02/2020 100.0 (H) CREATININE (mg/dL) Date Value 02/02/2020 0.55 ALT(SGPT) (U/L) Date Value 01/05/2019 95 (H) ALTv (U/L) Date Value 02/02/2020 166 (H) GLUCOSE (mg/dL) Date Value 02/02/2020 148 (H) AST(SGOT) (U/L) Date Value 02/02/2020 72 (H) ALK PHOS (U/L) Date Value 02/02/2020 723 (H) JORGE (U/L) Date Value 02/12/2015 64 LIPASE (U/L) Date Value 02/02/2020 203 PT/INR PROTIME PATIENT (Seconds) Date Value 02/02/2020 12.7 INR (no units) Date Value 02/02/2020 1.0 RADIOLOGY: CT ABDOMEN AND PELVIS WITH CONTRAST REASON FOR STUDY: Abd pain, acute, generalized COMPARISON: None available. TECHNIQUE: Multidetector axial CT images from lung bases through proximal thighs after IV administration of nonionic iodinated contrast material. Coronal and sagittal MPR images also generated. INTRAVENOUS CONTRAST ADMINISTRATION (mL Omnipaque 350): 120. FINDINGS: Lower chest: Clear lung bases. ABDOMEN AND PELVIS Liver: No focal hepatic lesion identified. Biliary Tract/GB: Status post cholecystectomy. Small central pneumobilia with gas extending into [...] or nephrolithiasis. 7 mm hypoattenuating lesion within the right upper renal pole is too small to characterize (3:68). Mildly lobulated bilateral renal contour. Bowel: No abnormal bowel dilatation or wall thickening. Appendix is not visualized with suggestion of appendectomy. Peritoneum: No free fluid or pneumoperitoneum. Vasculature: Within normal limits. Lymph Nodes: Within normal limits. Pelvic organs: Circumferential urinary bladder wall thickening out of proportion to degree of distention and with subtle urothelial hyperenhancement. Uterus and ovaries are unremarkable for patient's age. Abdominal/Pelvic Wall: Tiny fat-containing umbilical hernia. BONES: No acute or aggressive osseous unremarkable. No laryngeal degenerative changes scattered throughout the visualized spine. IMPRESSION 1. Mild circumferential urinary bladder wall thickening out of proportion to degree of distention with subtle urothelial hyperenhancement. Correlate with UA to exclude UTI/cystitis. 2. Otherwise, no radiographic findings to explain patient's abdominal pain. 3. Status post cholecystectomy and pneumobilia. Correlate with procedural history including sphincterectomy. 4. Technically indeterminate uncinate process 1.2 cm lesion without discernible connection to the pancreatic duct, unchanged since February 2019. Recommend MRI/MRCP. Imaging CT ABDOMEN PELVIS W CONTRAST (Order: [id number]) - 12/18/2019 ASSESSMENT and PLAN Yessenia Aleman is a 59 year old female with PMH as listed above 1. Change in mental status with lethargy and admission evidence of hyponatermia, toxic granules on peripheral smear and LOLLY. Encephalopathy is persistent despite normalization of hyponatremia and LOLLY and low lithium levels. Patient with apparent baseline liver disease, likely PBC (primary biliary cholangitis), or metabolic liver disease raising the possibility of hepatic encephalopathy. Plan: Lactulose, check AMA, cerulopla smin, get previous records 2. Macrocytic anemia , likely B12 deficiency 3. Baseline psychiatric issues Kenroy Hawkins MD 02/02/2020 7:10 PM Nancy Burch, RD - 02/01/2020 12:33 PM CDTSummary: Recommend DIELECTRIC TESTER evaluate pt MEDICAL NUTRITION THERAPY- CONSULT NOTE: Reason For Consultation: cytology teacher for positive initial nutrition screen: Unknown if decreased intake, moderate disease severity Malnutrition Assessment: Nutritional Diagnosis: None SGA Rating: At Risk Plan: Recommend DIELECTRIC TESTER evaluate patient Admission Chief Complaint: had concerns including Altered mental status. Present on Admission: Altered mental status PMH/PSH: has a past medical history of Biliary duct stenosis, Chronic congestive splenomegaly, Chronic pain,Chronic pancreatitis, History of cholecystectomy, Hypertension, Peptic ulcer, and Primary biliary cirrhosis. has a past surgical history that includes cholecystectomy (2010); appendectomy (2018); biliary stent placement (2010); and excise breast cyst. GI and Nutrition Related Findings: Symptoms: Possible Constipation Difficulty: Unknown GI tract alteration: Resection- gallbladder Alternative means of nutrition: N/A General: Edema- LE edema, trace Medications: Current Facility-Administered Medications: cyanocobalamin (VITAMIN B12) injection 1,000 mcg, 1,000 mcg, Subcutaneous, Q24H, Pasha Hinojosa MD, 1,000 mcg at 02/01/20 1103 D5W 0.45% NaCl (1/2NS) IV infusion 1,000 mL, 1,000 mL, IV Infusion, CONTINUOUS, Pasha Hinojosa MD NaCl 0.45% (1/2NS) IV infusion 1,000 mL, 1,000 mL, IV Infusion, ONCE, Pasha Hinojosa MD [START ON 02/02/2020] thiamine (VITAMIN B1) 100 mg in NaCl 0.9% (NS) piggyback, 100 mg, IV Piggyback, DAILY, Pasha Hinojosa MD enoxaparin (LOVENOX) injection 30 mg, 30 mg, Subcutaneous, DAILY, Pasha Hinojosa MD, 30 mg at1 0959 Lab and Medical Test Results: NA (mmol/L) Date Value 02/01/2020 139 K (mmol/L) Date Value 02/01/2020 4.1 CALCIUM (mg/dL) Date Value 02/01/2020 8.6 CL (mmol/L) Date Value 02/01/2020 112 (H) BUN (mg/dL) Date Value 02/01/2020 16 CREATININE (mg/dL) Date Value 02/01/2020 0.85 GLUCOSE (mg/dL) Date Value 02/01/2020 99 CO2 TOTAL (mmol/L) Date Value 02/01/2020 20 (L) ALBUMIN (g/dL) Date Value 02/01/2020 3.2 (L) T PROTEIN (g/dL) Date Value 02/01/2020 6.2 (L) TOTAL BILI (mg/dL) Date Value 02/01/2020 1.3 (H) BILI UNCON (mg/dL) Date Value 01/31/2020 0.4 BILI CONJ (mg/dL) Date Value 01/31/2020 0.0 ALT(SGPT) (U/L) Date Value 01/05/2019 95 (H) ALTv (U/L) Date Value 02/01/2020 209 (H) AST(SGOT) (U/L) Date Value 02/01/2020 110 (H) ALK PHOS (U/L) Date Value 02/01/2020 646 (H) Nutrition Assessment: Age: [age] year old Sex: female Ht: Ht Readings from Last 3 Encounters: 12/18/19 1.524 m (5') 08/21/19 1.524 m (5') 06/25/19 1.524 m (5') Current Wt: Wt Readings from Last 1 Encounters: 02/01/20 83 kg (182 lb 14.4 oz) BMI: Body mass index is 35.72 kg/m. (Obesity (BMI 30-39.9)) IBW for Ht: 45.45 kg +/- 4.5 kg %IBW: 183% Weight History: Wt Readings from Last 10 Encounters: 02/01/20 83 kg (182 lb 14.4 oz) 12/18/19 77.1 kg (170 lb) 08/21/19 86.2 kg (190 lb) 06/25/19 88.5 kg (195 lb) 06/19/19 88.5 kg (195 lb) 05/19/19 81.6 kg (180 lb) 02/23/19 83.9 kg (185 lb) 02/07/19 74.8 kg (165 lb) 01/23/19 74.8 kg (165 lb) 01/05/19 74.8 kg (165 lb) Inflammatory Markers: N/A Current Dietary Order(s): Orders Placed This Encounter Procedures Full Liquid Diet; EMR Documented Food Allergies/Intolerance/Cultural Preferences: NKFA per patient's Allergies Allergen Reactions Codeine Itching and Rash Nutrition & Diet History: Unable to speak with patient at visit, AMS, spoke with at bedside regarding diet history. Ms. Aleman has been eating a regular diet at home with no issues up until the last couple of weeks when she was barely eating. Recently she was checked into a detox center. Per MD note, acute encephalopathy secondary to opioid withdrawal. has been noticing some weight loss, but unsure of how much. Per EMR, patient has lost 13 lbs in 7 months (insifnicant 7%). Patient had not eaten breakfast at visit. RD reviewed patient's labs, and will continue to monitor. Calculated Daily Nutritional Needs: Calories: 1600 kcal/day = 19 kcal/kg current wt = 35 kcal/kg IBW = MSJ x 1.2 Protein: 20 % of kcal need/day = 80 g/day = 1 g/kg current wt = 1.7 g/kg IBW Fluid: 1600 mL/day or per MD; adjust per acute needs Nutrition Diagnosis: PES #1: Inadequate oral intake related to withdrawal symptoms/ AMS as evidenced by patient eating less than 75% of estimated energy requirements Nutrition Intervention(s): Interventions: 1. Recommend continue the current diet order as tolerated per MD/ DIELECTRIC TESTER - if unable to tolerate consider low fat options 2. Recommend DIELECTRIC TESTER evaluate patient 3. Ensure Enlive PRN if intake is poor, as tolerated 4. states patient needs feeding assistance 5. Recommend daily weights 6. Will monitor diet tolerance, intake, GI function, weight trends, and nutrition related labs Goals: 1. The pt's documented intake is no less than 75% of provided meals 2. Weight maintenance while inpatient D/C Planning: Low fat diet Nutrition Monitoring and Evaluation: A registered dietitian will f/u in 3-5 days to report nutrition related information and to revise the recommended nutrition intervention(s) if necessary; please page with questions or concerns, thank-you. Nancy Burch RD,ROSIBEL RD Office: [phone] signed by Nancy Burch RD at 02/01/2020 1:05 PM Sarmad Finnegan DO - 02/01/2020 9:37 AM CDTAssociated Order(s): CONSULT NEPHROLOGY Nephrology Consult Admit Date: 01/31/2020 PCP: Jeannie Slade Referring Physician: Dr. Hinojosa Reason for Referral: LOLLY Admitting Dx: Altered mental status Metabolic acidosis CHIEF COMPLAINT: AMS HISTORY OF PRESENT ILLNESS: Yessenia Aleman is a 59 year old female that presented to the ER with severe, persistent AMS. Limited HPI/ ROS due to AMS. Yessenia Aleman is a 59 year old female with past medical history significant for chronic pancreatitis,Hypertension,Peptic ulcer disease,Biliary cirrhosis/ stenosis, status post biliary stent placement and Revision, Chronic pain syndrome, who presented to the emergency room with severe altered mental status, disorientation and lethargy. Patient was brought to the ED from [facility], [place], operated by [facility] and reports that patient has been on hydrocodone for a long time over a period of 10 years and precisely the 8 days ago she stopped taking hydrocodone and about 2 days ago she started showing symptoms of tremors, confusion and because of that, he decided [facility]. He also reports that patient not made urine for like 16 hours and that is similar to when she had sepsis and had to be admitted. CT of the head was completed and there is no evidence of acute hemorrhage chest x-ray did not show any cardiopulmonary disease. X-ray of the abdomen was was also completed which shows nonobstructive bowel gas. UA Shows Pyuria. Will obtain urine culture. Will hold [place] due to elvated lithium level. [place] level is also normal ROS as stated above. All other ROS negative. Temp: [36.1 C (97 F)-36.7 C (98 F)] Heart Rate (monitor): [84-93] Pulse: [83-95] Resp: [11-25] BP: (112-148)/(81-111) MAP (mmHg): [92-107] PE: Gen: NAD HEENT: NCAT. MMM. Neck: Supple. No LAD. Lungs: Diminished CVS: RRR Abd: Soft. NT. +BS Ext: No C/C. LE Edema trace. Skin: No rash Psych: Awake Neuro: No speech. Some grunting. ASSESSMENT/PLAN Yessenia Aleman is a 59 year old female with PMH as listed above, admitted to the hospital with: The primary encounter diagnosis was Altered mental status, unspecified altered mental status type. Diagnoses of Acute kidney injury, Obesity (BMI 30-39.9), Biliary disease, Transaminitis, Chronic pancreatitis, unspecified pancreatitis type, Metabolic acidosis, Elevated liver enzymes, and Acute cystitis without hematuria were also pertinent to this visit. A/ LOLLY improved Acidosis Proteinuria [place] toxicity improved HTN Anemia in chronic illness Acute hepatitis/ Pancreatitis Toxic metabolic encephalopathy likely due to opiate withdrawal P/ Continue current POC and Medications other than changes listed below. Please see chart and orders for complete details. Continue IVF. Restart [place] as indicated. Restart diet and meds once mental status and aspiration risk improved. No NSAIDs. AM labs. Daily weight. Thank you kindly for the consultation. Vitals: 01/31/20 1926 01/31/20 2338 02/01/20 0256 02/01/20 0746 BP: (!) 148/82 134/90 (!) 145/87 (!) 142/86 Pulse: 93 93 95 85 Resp: Temp: 36.4 C (97.5 F) 36.7 C (98 F) 36.1 C (97 F) 36.4 C (97.5 F) TempSrc: Temporal Artery Temporal Artery Temporal Artery Tympanic SpO2: 95% 96% 97% 97% Weight: 83 kg (182 lb 14.4 oz) LABS - reviewed in the chart: CBC BMP PT/INR WBC (10*3/L) Date Value 02/01/2020 5.42 NA (mmol/L) Date Value 02/01/2020 139 No results found for: PT RBC (10*6/L) Date Value 02/01/2020 2.56 (L) K (mmol/L) Date Value 02/01/2020 4.1 INR (no units) Date Value 08/21/2019 1.0 PLT (10*3/L) Date Value 02/01/2020 162 (L) CALCIUM (mg/dL) Date Value 02/01/2020 8.6 HGB (g/dL) Date Value 02/01/2020 8.3 (L) CL (mmol/L) Date Value 02/01/2020 112 (H) aPTT HCT (%) Date Value 02/01/2020 26.1 (L) BUN (mg/dL) Date Value 02/01/2020 16 APTT Patient (Seconds) Date Value 08/21/2019 30 CREATININE (mg/dL) Date Value 02/01/2020 0.85 IMAGING - reviewed in the chart: Hospital Encounter on 01/31/20 CT Head W/O Contrast Narrative Exam: CT HEAD WO CONTRAST Clinical History: Altered mental status (AMS), unclear cause Technique:Thin section CT brain with multiplanar reformats Comparison: CT brain dated 01/02/2019 Findings: Brainstem, cerebellum are within normal limits. Ventricles are normal. There are no extra-axial collections. There is no evidence of intracranial hemorrhage. No focal mass, midline shift, mass effect is identified. Several hemispheres are within normal limits. Aspect score: 10. Basal cisterns are normal. Bone windows demonstrate a normal appearance of the skull base. Minimal fluid is noted in the right mastoid air cells. The paranasal sinuses are within normal limits. Included portions of the orbits are normal. The cranium is within normal limits without evidence for fracture. Impression Impression: 1. No acute intracranial process. 2. Small right mastoid effusion. Chest 1 View Narrative Chest, one view History: AMS . Altered state of awareness Ordering Physician: KIRSTIN RON Findings: The lungs are clear without focal pneumonic consolidation, pleural effusion, or pneumothorax. The heart size is normal. The mediastinal contours are normal. No pulmonary edema. Several scattered calcified granulomas noted within both lungs. Impression Impression: No acute cardiopulmonary disease. RL: 2601 AFC: [id number] Abdomen 1 View Narrative CLINICAL INFORMATION: Abdominal pain. Altered state of awareness Ordering Physician: KIRSTIN RON FINDINGS: Supine view of the abdomen was submitted on 3 separate images. Small amount of gas within the stomach. Bladder surgically absent. Gas and stool noted in the colon. No dilated loops of small bowel. Impression 1. Nonobstructive intestinal bowel gas pattern. RL: 2601 AFC: [id number] MEDICAL HISTORY Past Medical History: Diagnosis Date Biliary duct stenosis s/p stent placement and revision x3 Chronic congestive splenomegaly Chronic pain Chronic pancreatitis History of cholecystectomy Hypertension Peptic ulcer Primary biliary cirrhosis Past Surgical History: Procedure Laterality Date APPENDECTOMY 2018 BILIARY STENT PLACEMENT 2010 CHOLECYSTECTOMY 2010 EXCISE BREAST CYST ALLERGIES Allergies Allergen Reactions Codeine Itching and Rash MEDICATIONS reviewed in the chart. Current Facility-Administered Medications Medication Dose Route Frequency Last Rate Last Dose cyanocobalamin (VITAMIN B12) injection 1,000 mcg 1,000 mcg Subcutaneous Q24H NaCl 0.45% (1/2NS) IV infusion 1,000 mL 1,000 mL IV Infusion CONTINUOUS [START ON 02/02/2020] thiamine (VITAMIN B1) 100 mg in NaCl 0.9% (NS) piggyback 100 mg IV Piggyback DAILY enoxaparin (LOVENOX) injection 30 mg 30 mg Subcutaneous DAILY 30 mg at 02/01/20 0959 SOCIAL HISTORY Social History Socioeconomic History Marital status: Spouse name: Not on file Number of children: Not on file Years of education: 11 Highest education level: Not on file Occupational History Not on file Social Needs Financial resource strain: Somewhat hard Food insecurity Worry: Never true Inability: Never true Transportation needs Medical: No Non-medical: No Tobacco Use Smoking status: Never Smoker Smokeless tobacco: Never Used Substance and Sexual Activity Alcohol use: Never Frequency: Never Drug use: Never Sexual activity: Not on file Lifestyle Physical activity Days per week: Not on file Minutes per session: Not on file Stress: Not on file Relationships Social connections Talks on phone: Not on file Gets together: Not on file Attends amish service: Not on file Active member of club or organization: Not on file Attends meetings of clubs or organizations: Not on file Relationship status: Not on file Intimate partner violence Fear of current or ex partner: Not on file Emotionally abused: Not on file Physically abused: Not on file Forced sexual activity: Not on file Other Topics Concern Not on file Social History Narrative Not on file FAMILY History Family History Problem Relation Age of Onset Thyroid Cancer Father Diabetes Brother Liver Cancer Brother Breast Cancer Paternal Grandmother Diabetes Brother Liver Cancer Brother Breast Cancer Daughter Sarmad Finnegan DO - 02/01/2020 9:35 AM CDTAssociated Order(s): CONSULT NEPHROLOGYSee consult note in the chart. documented in this encounter ED Notes Katty Sanchez RN - 01/31/2020 10:40 AM CDTPatient [facility]. Patient with a history of Hydrocodone use for10 years and stopped taking 8 days ago. Patient reports that patient began showing symptomsof "shaking, altered mental status' and so [facility]. Patient's reports that patient has not made urine for 16 hours and that had an episode similar in the past for sepsis and was hospitalized. Kirstin Luna FNP - 01/31/2020 10:32 AM CDT [facility] Emergency Department Note Patient Name: Yessenia Aleman Date of : 1960 59 year old female Treatment Room: Room/bed info not found Primary Care Physician: Jeannie Slade Patient Escorted by: Family [5] Mode of Arrival: EMS - [facility] ([place]) [43] EMS Treatment Prior to ED Arrival: [employer] treatment: IVF;Saline lock [employer] treatment comments: 2 liters over the past 2 days per EMS report Travel and Exposure Screening: Symptoms Does patient have any of these symptoms?: (not recorded) Exposure Screening Has patient had contact with someone with a communicable disease in the last month?: (not recorded) Diseases exposed to:: (not recorded) Is Patient ?: (not recorded) Exposure Date: (not recorded) Chief Complaint: Chief Complaint Patient presents with Altered mental status History of Present Illness: History provided by: EMS personnel and spouse History limited by: Mental status change and acuity of condition director of capital giving used: No Altered mental status Presenting symptoms: confusion, disorientation and lethargy Severity: Severe Most recent episode: More than 2 days ago Episode history: Continuous Duration: 3 days Timing: Constant Progression: Worsening Chronicity: New Context: drug use and recent change in medication Context comment: Pt was unable to participate in exam. Per EMS and pts spouse report, pt stopped taking [place] approx 8 days ago. 3 days ago she was trembling and looked like she was withdrawing so he checked her into rehab. Mentation has been worsening at rehab. Associated symptoms: abnormal movement and weakness Associated symptoms: no abdominal pain, no agitation, no fever, no hallucinations, no headaches, no nausea and no vomiting Associated symptoms comment: Pt is having involuntary jerking movements and appears weak. Rehab facility reports that patient has not made any urine in over 16 hours despite 2 liters of fluids over the last 16 hours. reports similar episode of this years ago where patient "was very sick, on aventilator and in ICU. I think they said she had sepsis." Weakness: Severity: Unable to specify Onset quality: Unable to specify Timing: Unable to specify Progression: Unable to specify Chronicity: New Past Medical History/Immunizations: Past Medical History: Diagnosis Date Biliary duct stenosis s/p stent placement and revision x3 Chronic congestive splenomegaly Chronic pain Chronic pancreatitis History of cholecystectomy Hypertension Peptic ulcer Primary biliary cirrhosis Tetanus received in last 5 years: No Allergies: Allergies Allergen Reactions Codeine Itching and Rash Past Social History: Tobacco Use Never smoked or used smokeless tobacco. Alcohol Use Never. Frequency of alcohol consumption: Never Drug Use Never. Past Surgical History: Past Surgical History: Procedure Laterality Date APPENDECTOMY 2018 BILIARY STENT PLACEMENT 2010 CHOLECYSTECTOMY 2010 EXCISE BREAST CYST Review of Systems Constitutional: Negative for appetite change, fever, weight gain and weight loss. HENT: Negative for rhinorrhea. Eyes: Negative for photophobia and visual disturbance. Respiratory: Negative for chest tightness and shortness of breath. Cardiovascular: Negative for chest pain and leg swelling. Gastrointestinal: Negative for abdominal pain, nausea and vomiting. Genitourinary: Negative for dysuria, vaginal bleeding and difficulty urinating. Musculoskeletal: Negative for arthralgias, myalgias and neck pain. Skin: Negative for pallor and wound. Neurological: Positive for tremors and weakness. Negative for syncope and headaches. Psychiatric/Behavioral: Positive for confusion. Negative for agitation and hallucinations. Endocrine: Negative for weight gain and weight loss. ED Triage Vitals Weight 01/31/20 1040 91 kg (200 lb 9.9 oz) Actual or estimated -- Height -- BP 01/31/20 1042 (!) 135/100 Pulse 01/31/20 1042 87 Resp 01/31/20 1042 20 Temp 01/31/20 1042 37.3 C (99.1 F) Temp source 01/31/20 1042 Oral SpO2 01/31/20 1042 98 % Measured on 01/31/20 1042 Room air Physical Exam Vitals signs reviewed. Constitutional: General: She is not in acute distress. Appearance: She is well-developed. She is obese. She is ill-appearing. She is not diaphoretic. HENT: Head: Normocephalic and atraumatic. Right Ear: Tympanic membrane, ear canal and external ear normal. Left Ear: Tympanic membrane, ear canal and external ear normal. Nose: Nose normal. Mouth/Throat: Lips: Luc[place]. Pharynx: Oropharynx is clear. Uvula midline. No oropharyngeal exudate. Eyes: General: No visual field deficit. Right eye: No discharge. Left eye: No discharge. Extraocular Movements: Right eye: Normal extraocular motion and no nystagmus. Left eye: Normal extraocular motion and no nystagmus. Conjunctiva/sclera: Conjunctivae normal. Pupils: Pupils are equal, round, and reactive to light. Neck: Musculoskeletal: Normal range of motion and neck supple. Trachea: Trachea and phonation normal. Cardiovascular: Rate and Rhythm: Normal rate and regular rhythm. Heart sounds: Normal heart sounds. No murmur. Pulmonary: Effort: Pulmonary effort is normal. No respiratory distress. Breath sounds: Normal breath sounds. No decreased breath sounds, wheezing, rhonchi or rales. Chest: Chest wall: No tenderness. Abdominal: General: Bowel sounds are normal. There is no distension. Palpations: Abdomen is soft. Tenderness: There is no abdominal tenderness. Musculoskeletal: Normal range of motion. General: No tenderness or deformity. Skin: General: Skin is warm and dry. Neurological: Mental Status: She is disoriented and confused. GCS: GCS eye subscore is 4. GCS verbal subscore is 4. GCS motor subscore is 5. Cranial Nerves: No cranial nerve deficit, dysarthria or facial asymmetry. Motor: Tremor present. Deep Tendon Reflexes: Reflexes are normal and symmetric. Psychiatric: Behavior: Behavior normal. Thought Content: Thought content normal. Judgment: Judgment normal. Radiology: Hospital Encounter on 01/31/20 CT Head W/O Contrast Narrative Exam: CT HEAD WO CONTRAST Clinical History: Altered mental status (AMS), unclear cause Technique:Thin section CT brain with multiplanar reformats Comparison: CT brain dated 01/02/2019 Findings: Brainstem, cerebellum are within normal limits. Ventricles are normal. There are no extra-axial collections. There is no evidence of intracranial hemorrhage. No focal mass, midline shift, mass effect is identified. Several hemispheres are within normal limits. Aspect score: 10. Basal cisterns are normal. Bone windows demonstrate a normal appearance of the skull base. Minimal fluid is noted in the right mastoid air cells. The paranasal sinuses are within normal limits. Included portions of the orbits are normal. The cranium is within normal limits without evidence for fracture. Impression Impression: 1. No acute intracranial process. 2. Small right mastoid effusion. Chest 1 View Narrative Chest, one view History: AMS . Altered state of awareness Ordering Physician: KIRSTIN RON Findings: The lungs are clear without focal pneumonic consolidation, pleural effusion, or pneumothorax. The heart size is normal. The mediastinal contours are normal. No pulmonary edema. Several scattered calcified granulomas noted within both lungs. Impression Impression: No acute cardiopulmonary disease. RL: 2601 AFC: [id number] Abdomen 1 View Narrative CLINICAL INFORMATION: Abdominal pain. Altered state of awareness Ordering Physician: KIRSTIN RON FINDINGS: Supine view of the abdomen was submitted on 3 separate images. Small amount of gas within the stomach. Bladder surgically absent. Gas and stool noted in the colon. No dilated loops of small bowel. Impression 1. Nonobstructive intestinal bowel gas pattern. RL: 2601 AFC: [id number] Lab Results (24h): Recent Results (from the past 24 hour(s)) Lactic Acid Whole Blood Collection Time: 01/31/20 10:57 AM Result Value Ref Range LACTIC ACID 1.03 0.30 - 2.60 mmol/L CBC with Differential Collection Time: 01/31/20 10:58 AM Result Value Ref Range WBC 7.73 4.30 - 11.10 10*3/L RBC 3.11 (L) 3.93 - 5.25 10*6/L HGB 9.8 (L) 11.6 - 15.0 g/dL HCT 31.7 (L) 35.7 - 45.2 % MCV 101.9 (H) 80.6 - 95.5 fL MCH 31.5 25.9 - 32.8 pg MCHC 30.9 (L) 31.6 - 35.1 g/dL RDW-SD 51.4 (H) 39.0 - 49.9 fL RDW-CV 13.7 12.0 - 15.5 % PLT 217 166 - 358 10*3/L MPV 10.3 9.5 - 12.9 fL NRBC/100 WBC 0.0 0.0 - 10.0 /100 WBCs NRBC x10^3 <0.01 10*3/L GRAN MAT (NEUT) % 77.1 % IMM GRAN % 0.40 % LYMPH % 12.2 % MONO % 5.7 % EOS % 4.3 % BASO % 0.3 % GRAN MAT x10^3(ANC) 5.97 1.88 - 7.09 10*3/uL IMM GRAN x10^3 0.03 0.00 - 0.06 10*3/uL LYMPH x10^3 0.94 (L) 1.32 - 3.29 10*3/uL MONO x10^3 0.44 0.33 - 0.92 10*3/uL EOS x10^3 0.33 0.03 - 0.39 10*3/uL BASO x10^3 <0.03 0.01 - 0.07 10*3/uL Basic Metabolic Panel (NA, K, CL, CO2, GLUCOSE, BUN, CREATININE, CA) Collection Time: 01/31/20 10:58 AM Result Value Ref Range NA 134 (L) 135 - 145 mmol/L K 4.9 3.5 - 5.0 mmol/L CL 107 98 - 108 mmol/L CO2 TOTAL 19 (L) 23 - 31 mmol/L AGAP 8 2 - 16 BUN 30 (H) 7 - 23 mg/dL GLUCOSE 106 70 - 110 mg/dL CREATININE 2.21 (H) 0.50 - 1.04 mg/dL CALCIUM 9.5 8.6 - 10.6 mg/dL eGFR Calculation (Non-) 22.9 mL/min/1.73m2 eGFR Calculation () 27.7 mL/min/1.73m2 Hepatic Function Panel (ALB, T.PRO, BILI T, BU/BC, ALT, AST, ALK PHOS) Collection Time: 01/31/20 10:58 AM Result Value Ref Range TOTAL BILI 1.5 (H) 0.1 - 1.1 mg/dL BILI UNCON 0.4 0.1 - 1.1 mg/dL BILI CONJ 0.0 0.0 - 0.3 mg/dL T PROTEIN 8.0 6.3 - 8.2 g/dL ALBUMIN 4.0 3.5 - 5.0 g/dL ALK PHOS 714 (H) 34 - 122 U/L ALTv 352 (H) 5 - 35 U/L AST(SGOT) 256 (H) 13 - 40 U/L Lipase Serum Collection Time: 01/31/20 10:58 AM Result Value Ref Range LIPASE 410 (H) 0 - 220 U/L Troponin I Collection Time: 01/31/20 10:58 AM Result Value Ref Range TROPONIN I <0.012 <=0.034 ng/mL N-TERMINAL PRO-BNP Collection Time: 01/31/20 10:58 AM Result Value Ref Range NT-proBNP 283 (H) <=125 pg/mL BLOOD CULTURE SCREEN Collection Time: 01/31/20 10:58 AM Specimen: VENOUS; Blood Result Value Ref Range Blood Culture-Aerobic Culture In Progress No growth Blood Culture-Anaerobic Culture In Progress No growth AMMONIA, PLASMA Collection Time: 01/31/20 10:58 AM Result Value Ref Range AMMONIA 32 9 - 33 umol/L CREATINE KINASE Collection Time: 01/31/20 10:58 AM Result Value Ref Range CK 46 33 - 194 U/L ETHANOL Collection Time: 01/31/20 10:58 AM Result Value Ref Range ALCOHOL <10 mg/dL COVID-19 (ID NOW RAPID TESTING) Collection Time: 01/31/20 11:00 AM Specimen: NASOPHARYNGEAL SWAB Result Value Ref Range SARS-CoV-2 Rapid ID NOW Not Detected Not Detected Urinalysis Collection Time: 01/31/20 11:13 AM Result Value Ref Range APPEARANCE Hazy (A) Clear COLOR Romelia (A) Yellow PH 5.0 4.8 - 8.0 SP GRAVITY 1.015 1.003 - 1.030 GLU U QUAL Normal Normal BLOOD Negative Negative KETONES Negative Negative PROTEIN 30 mg/dL (A) Negative UROBILIN 4.0 mg/dL (A) Normal BILIRUBIN Negative Negative NITRITE Negative Negative LEUK NICHOLE 25/uL (A) Negative RBC/HPF 3 0 - 3 HPF WBC/HPF 9 (H) 0 - 5 HPF BACTERIA Few (A) Negative MUCOUS Moderate (A) Negative LPF SQ EPITH 2 HPF HYAL CAST 21 (H) <=2 LPF GRAN CASTS 7 (H) <=1 LPF ADC / [facility] - DRUG SCREEN TRIAGE Collection Time: 01/31/20 11:13 AM Result Value Ref Range BENZO U Presumptive Positive (A) Negative SLIM U Negative Negative AMPHET Negative Negative THC Negative Negative METHADONE Negative Negative Meth U Negative Negative OPIATES Negative Negative Cocaine Metabolite Negative Negative PROPOXY Negative Negative Tric U Presumptive Positive (A) Negative PCP Negative Negative OXYCOD Negative Negative VALPROIC ACID, TOTAL Collection Time: 01/31/20 1:21 PM Result Value Ref Range VALPROIC A <10 (L) 50 - 100 ug/mL LITHIUM Collection Time: 01/31/20 1:21 PM Result Value Ref Range [place] 1.4 (H) 0.6 - 1.2 mmol/L SALICYLATE Collection Time: 01/31/20 1:21 PM Result Value Ref Range SALICYLATE <10 mg/L ACETAMINOPHEN Collection Time: 01/31/20 1:21 PM Result Value Ref Range ACETAMINOP <10.0 (L) 10.0 - 30.0 ug/mL ABG+COOX+NA+K+GLU+CA2+ Collection Time: 01/31/20 3:39 PM Result Value Ref Range PH 7.23 (L) 7.35 - 7.45 PCO2 48 (H) 35 - 45 mmHg PO2 74 (L) 80 - 100 mmHg HCO3 20 (L) 22 - 26 mEq/L BE -7.6 (L) -3.0 - 3.0 mEq/L THB 9.8 (L) 12.0 - 16.0 g/dL %O2HB 94.0 94.0 - 99.0 % %COHB ART 0.0 0.0 - 1.5 % %METHB ART 0.3 (L) 0.4 - 1.5 % VOL%O2 ART 13.0 (L) 15.0 - 23.0 % NA 137 135 - 145 mmol/L K+ 4.0 3.5 - 5.0 mmol/L AC CA IONZ 5.10 4.50 - 5.30 mg/dL GLUCOSE 100 70 - 110 mg/dL EKG: normal sinus rhythm, 84 bpm MD interval, 184 ms QRS duration, 96 ms QT/QTc 398/470 ms Nonspecific T wave abnormality Prolonged QT Orders and Treatments: Orders Placed This Encounter Procedures Chest 1 View Abdomen [address] Head W/O Contrast Urinalysis CBC with Differential Basic Metabolic Panel (NA, K, CL, CO2, GLUCOSE, BUN, CREATININE, CA) Hepatic Function Panel (ALB, T.PRO, BILI T, BU/BC, ALT, AST, ALK PHOS) Lipase Serum Troponin I N-TERMINAL PRO-BNP BLOOD CULTURE SCREEN BLOOD CULTURE SCREEN Urine Culture ADC / LCC - DRUG SCREEN TRIAGE Lactic Acid Whole Blood COVID-19 (ID NOW RAPID TESTING) AMMONIA, PLASMA VALPROIC ACID, TOTAL LITHIUM LAB ONLY COVID INTERPRETATION SALICYLATE ACETAMINOPHEN CREATINE KINASE ETHANOL ABG+COOX+NA+K+GLU+CA2+ O2 Per Protocol Orders Placed This Encounter Medications NaCl 0.9% (NS) bolus infusion 2,730 mL lithium carbonate 300 mg capsule temazepam 15 mg capsule ursodioL 500 mg tablet ED COURSE Obtain labs per sepsis protocol. Personnel at detox center state that someone is with patient 05/11,could not have overdosed and no seizure activity was noted. LOLLY noted. Transaminitis noted. All other lab unremarkable for patient. This patient discussed with Dr. Ramirez several times. Will do ABG and admit to medicine. Metabolic acidosis on ABG, po2 low, placed on O2 at 3L/NC. Spoke with Dr. Hinojosa, will admit to medicine as OBS. Thank you. MDM: MDM Reviewed: nursing note, vitals and previous chart Reviewed previous: labs and ECG Patient was evaluated for the complaint of Altered mental status Diagnoses considered but not limited to: Alcohol Intoxication Coma Confusion Dehydration Encephalitis Hepatic Encephalopathy Hypernatremia Intracerebral Bleed Overdose Pneumonia Post-Ictal State Sepsis Substance Abuse Urinary Tract Infection Volume Depletion. Labs:were ordered, and resulted, any relevant abnormalities were considered. Imaging:Ordered, and resulted, any relevant abnormalities were considered. Procedures:were not performed. History, physical exam findings, results of visit, diagnosis, medication regimens and plan of futurecare have been considered. Additional MDM may be found in the ED course. Vital signs were rechecked before final disposition and determined to be expected for patient's clinical condition.. Scoring Tools: No data recorded Diagnosis/Impression: ICD-10-CM ICD-9-CM 1. Altered mental status, unspecified altered mental status type R41.82 780.97 2. Acute kidney injury N17.9 584.9 3. Obesity (BMI 30-39.9) E66.9 278.00 4. Biliary disease K83.9 576.9 5. Transaminitis R74.01 790.4 6. Chronic pancreatitis, unspecified pancreatitis type K86.1 577.1 7. Metabolic acidosis E87.2 276.2 Disposition/Condition: ED Disposition ED Disposition Condition Comment Admit - Observation Is this patient COVID positive or a patient under investigation (PUI)?: No Treatment Team: [facility] [[id number]] Primary reason for admission: Altered mental status [780.97.ICD-9-CM] Secondary reason for admission: Metabolic acidosis [627330] Is (or was) this a planned re-admission?: No Discharge Medications: Patient's Medications START taking these medications No medications on file CONTINUE taking these medications which have NOT CHANGED ALBUTEROL 90 MCG/ACTUATION INHALER Inhale 2 Puffs every 4 (four) hours as needed for Wheezing, Shortness of Breath, Bronchospasm or Chest tightness. BENZONATATE 200 MG CAPSULE Take 1 capsule by mouth 3 (three) times daily as needed for Cough. CHLORDIAZEPOXIDE 10 MG CAPSULE Take 10 mg by mouth 3 (three) times daily. CREON 36,000-114,000- 180,000 UNIT CPDR Take by mouth 3 (three) times daily with meals. DIVALPROEX (DEPAKOTE) 500 MG EC TABLET Take 500 mg by mouth daily. ESCITALOPRAM OXALATE (LEXAPRO) 20 MG TABLET Take 20 mg by mouth at bedtime. GABAPENTIN (NEURONTIN) 300 MG CAPSULE Take 300 mg by mouth 3 (three) times daily. HYDROCODONE-ACETAMINOPHEN 7.5-325 MG PER TABLET Take 1 tablet by mouth every 6 (six) hours as needed (Pain scal 7-10). LITHIUM CARBONATE 300 MG CAPSULE Take 300 mg by mouth 2 (two) times daily. LOSARTAN 100 MG TABLET Take 1 tablet by mouth daily. LOSARTAN POTASSIUM (LOSARTAN ORAL) Take 100 mg by mouth daily. MELOXICAM 7.5 MG TABLET Take 7.5 mg by mouth daily. NITROFURANTOIN&NIT. MACROCRYST (MACROBID) 100 MG CAPSULE Take 1 capsule by mouth 2 (two) times daily. ONDANSETRON (ZOFRAN) 4 MG TABLET Take 1 tablet by mouth every 8 (eight) hours as needed for Nausea and Vomiting (N/V). ONDANSETRON 4 MG DISINTEGRATING TABLET Take 1 tablet by mouth every 8 (eight) hours as needed for Nausea and Vomiting (N/V). ONDANSETRON 4 MG DISINTEGRATING TABLET Take 2 tablets by mouth every 8 (eight) hours as needed for Nausea and Vomiting (N/V). ONDANSETRON 4 MG TABLET Take 1 tablet by mouth every 8 (eight) hours as needed for Nausea and Vomiting (N/V). PANTOPRAZOLE 40 MG EC TABLET Take 1 tablet by mouth 2 (two) times daily. PROMETHAZINE (PHENERGAN) 25 MG SUPPOSITORY Insert 1 Suppository into rectum every 4 (four) hoursas needed for Nausea and Vomiting (N/V). PROMETHAZINE 25 MG TABLET Take 1 tablet by mouth every 6 (six) hours as needed for N/V alternating with Ondansetron. QUETIAPINE (SEROQUEL) 400 MG TABLET Take 400 mg by mouth at bedtime. TEMAZEPAM 15 MG CAPSULE Take 15 mg by mouth at bedtime as needed for Insomnia. TIZANIDINE 4 MG CAPSULE Take 4 mg by mouth 2 (two) times daily. TRAMADOL (ULTRAM) 50 MG TABLET Take 1 tablet by mouth every 6 (six) hours as needed for Pain (scale 7-10). TRAMADOL 100 MG 24 HR TABLET Take 1 tablet by mouth daily. TRAMADOL 50 MG TABLET 1 by mouth every 4-6 hours as needed for pain URSODIOL 500 MG TABLET Take 500 mg by mouth 2 (two) times daily. START taking Modified Medications as Prescribed No medications on file STOP taking these medications No medications on file Follow-up: Electronically signed by: AYDIN Ferreira 01/31/2020 10:35 AM Associated attestation - Farshad Ramirez MD - 02/03/2020 7:11 AM CDTOn the date of service, I reviewed the patients history, exam findings, diagnostic and any interventions or procedures in detail of the assigned advance practice provider and was available for consultation. Farshad Ramirez Jr., MD [facility] Emergency Department documented in this encounter Miscellaneous Notes Nursing Note - Valorie Dong RN - 02/08/2020 3:23 PM CDTSummary: Nursing Report called to LUCIUS Parham with Leah Gardner. are Plan - Valorie Dong RN - 02/08/2020 12:09 PM CDT Problem: Pain Goal: Reduction in pain sensation Outcome: Progressing as expected Problem: Falls, Risk of Goal: Absence of falls Outcome: Progressing as expected Problem: Discharge Planning Goal: Adequate for discharge Outcome: Progressing as expected Goal: Effective communication Outcome: Progressing as expected Problem: Mental Status - Impaired Goal: Able to achieve maximum level of cognitive ability Outcome: Progressing as expected Problem: Respiratory Function - Impaired Goal: Adequate oxygenation Outcome: Progressing as expected Goal: Adequate work of breathing Outcome: Progressing as expected Problem: Activity Intolerance Goal: Improved activity tolerance Outcome: Progressing as expected are Plan - Maru Harden RN - 02/08/2020 3:05 AM CDT Problem: Pain Goal: Reduction in pain sensation Outcome: Progressing as expected Problem: Falls, Risk of Goal: Absence of falls Outcome: Progressing as expected Problem: Discharge Planning Goal: Adequate for discharge Outcome: Progressing as expected Goal: Effective communication Outcome: Progressing as expected Problem: Mental Status - Impaired Goal: Able to achieve maximum level of cognitive ability Outcome: Progressing as expected Problem: Respiratory Function - Impaired Goal: Adequate oxygenation Outcome: Progressing as expected Goal: Adequate work of breathing Outcome: Progressing as expected Problem: Activity Intolerance Goal: Improved activity tolerance Outcome: Progressing as expected Nursing Note - Daxa Trinidad RN - 02/07/2020 3:56 AM CDTAssisted to the bathroom and has passed yellow, clear urine 600 mls are Plan - Daxa Trinidad RN - 02/06/2020 10:19 PM CDT Problem: Pain Goal: Reduction in pain sensation Outcome: Progressing as expected Problem: Falls, Risk of Goal: Absence of falls Outcome: Progressing as expected Problem: Discharge Planning Goal: Adequate for discharge Outcome: Progressing as expected Problem: Discharge Planning Goal: Effective communication Outcome: Progressing as expected Problem: Respiratory Function - Impaired Goal: Adequate oxygenation Outcome: Progressing as expected Problem: Respiratory Function - Impaired Goal: Adequate work of breathing Outcome: Progressing as expected Problem: Activity Intolerance Goal: Improved activity tolerance Outcome: Progressing as expected are Yolette - Hanane Umana RN - 02/06/2020 5:56 PM CDT Problem: Pain Goal: Reduction in pain sensation Outcome: Progressing as expected Problem: Falls, Risk of Goal: Absence of falls Outcome: Progressing as expected Problem: Discharge Planning Goal: Adequate for discharge Outcome: Progressing as expected Goal: Effective communication Outcome: Progressing as expected Problem: Mental Status - Impaired Goal: Able to achieve maximum level of cognitive ability Outcome: Progressing as expected Problem: Respiratory Function - Impaired Goal: Adequate oxygenation Outcome: Progressing as expected Goal: Adequate work of breathing Outcome: Progressing as expected Problem: Activity Intolerance Goal: Improved activity tolerance Outcome: Progressing as expected are Daxa Guadalupe RN - 02/05/2020 8:59 PM CDT Problem: Pain Goal: Reduction in pain sensation Outcome: Progressing as expected Problem: Falls, Risk of Goal: Absence of falls Outcome: Progressing as expected Problem: Discharge Planning Goal: Adequate for discharge Outcome: Progressing as expected Problem: Mental Status - Impaired Goal: Able to achieve maximum level of cognitive ability Outcome: Progressing as expected Problem: Respiratory Function - Impaired Goal: Adequate oxygenation Outcome: Progressing as expected Problem: Respiratory Function - Impaired Goal: Adequate work of breathing Outcome: Progressing as expected Problem: Activity Intolerance Goal: Improved activity tolerance Outcome: Progressing as expected NTCLizet Choudhury RN - 02/05/2020 6:06 AM CDT Problem: Pain Goal: Reduction in pain sensation 02/05/2020 0606 by Lizet Calle RN Outcome: Progressing as expected 02/05/2020 0605 by Lizet Calle RN Outcome: Progressing as expected Problem: Falls, Risk of Goal: Absence of falls 02/05/2020 0606 by Lizet Calle RN Outcome: Progressing as expected 02/05/2020 0605 by Lizet Calle RN Outcome: Progressing as expected Problem: Discharge Planning Goal: Adequate for discharge 02/05/2020 0606 by Lizet Calle RN Outcome: Progressing as expected 02/05/2020 0605 by Lizet Calle RN Outcome: Progressing as expected Goal: Effective communication 02/05/2020 0606 by Lizet Calle RN Outcome: Progressing as expected 02/05/2020 0605 by Lizet Calle RN Outcome: Progressing as expected Problem: Mental Status - Impaired Goal: Able to achieve maximum level of cognitive ability 02/05/2020 0606 by Lizet Calle RN Outcome: Progressing as expected 02/05/2020 0605 by Lizet Calle RN Outcome: Progressing as expected Problem: Respiratory Function - Impaired Goal: Adequate oxygenation 02/05/2020 06 by Lizet Calle RN Outcome: Progressing as expected 02/05/2020 06 by Lizet Calle RN Outcome: Progressing as expected Goal: Adequate work of breathing 02/05/2020 06 by Lizet Calle RN Outcome: Progressing as expected 02/05/2020 06 by Lizet Calle RN Outcome: Progressing as expected Problem: Activity Intolerance Goal: Improved activity tolerance 02/05/2020 06 by Lizet Calle RN Outcome: Progressing as expected 02/05/2020 06 by Lizet Calle RN Outcome: Progressing as expected Lizet Hooker RN - 02/05/2020 6:05 AM CDT Problem: Pain Goal: Reduction in pain sensation Outcome: Progressing as expected Problem: Falls, Risk of Goal: Absence of falls Outcome: Progressing as expected Problem: Discharge Planning Goal: Adequate for discharge Outcome: Progressing as expected Goal: Effective communication Outcome: Progressing as expected Problem: Mental Status - Impaired Goal: Able to achieve maximum level of cognitive ability Outcome: Progressing as expected Problem: Respiratory Function - Impaired Goal: Adequate oxygenation Outcome: Progressing as expected Goal: Adequate work of breathing Outcome: Progressing as expected Problem: Activity Intolerance Goal: Improved activity tolerance Outcome: Progressing as expected Mayi Castaneda RN - 02/04/2020 11:19 AM CDT Problem: Pain Goal: Reduction in pain sensation Outcome: Progressing as expected Problem: Falls, Risk of Goal: Absence of falls Outcome: Progressing as expected Problem: Discharge Planning Goal: Adequate for discharge Outcome: Progressing as expected Goal: Effective communication Outcome: Progressing as expected Problem: Mental Status - Impaired Goal: Able to achieve maximum level of cognitive ability Outcome: Progressing as expected Problem: Respiratory Function - Impaired Goal: Adequate oxygenation Outcome: Progressing as expected Goal: Adequate work of breathing Outcome: Progressing as expected Problem: Activity Intolerance Goal: Improved activity tolerance Outcome: Progressing as expected ursing Note - Mayi Harkins RN - 02/04/2020 8:30 AM CDTBedside swallow performed, test passed. ursing Breanna - Mayi Harkins RN - 02/04/2020 8:15 AM CDTCalled patient's to complete MRI screening. Informed regarding patient's status and plan of care. Care Plan - Murray Sheppard RN - 02/03/2020 10:54 PM CDT Problem: Pain Goal: Reduction in pain sensation Outcome: Progressing as expected Problem: Falls, Risk of Goal: Absence of falls Outcome: Progressing as expected Problem: Discharge Planning Goal: Adequate for discharge Outcome: Progressing as expected Goal: Effective communication Outcome: Progressing as expected Problem: Mental Status - Impaired Goal: Able to achieve maximum level of cognitive ability Outcome: Progressing as expected Problem: Respiratory Function - Impaired Goal: Adequate oxygenation Outcome: Progressing as expected Goal: Adequate work of breathing Outcome: Progressing as expected are Plan - Emilie Schmidt RN - 02/02/2020 2:23 AM CDT Problem: Pain Goal: Reduction in pain sensation 02/02/2020222 by Emilie Schmidt RN Outcome: Progressing as expected 02/02/202056 by Emilie Schmidt RN Outcome: Progressing as expected Problem: Falls, Risk of Goal: Absence of falls 02/02/2020222 by Emilie Schmidt RN Outcome: Progressing as expected 02/02/2020 005 by Emilie Schmidt RN Outcome: Progressing as expected Problem: Discharge Planning Goal: Adequate for discharge 02/02/2020222 by Emilie Schmidt RN Outcome: Progressing as expected 02/02/2020 005 by Emilie Schmidt RN Outcome: Progressing as expected Goal: Effective communication 02/02/2020222 by Emilie Schmidt RN Outcome: Progressing as expected 02/02/2020 005 by Emilie Schmidt RN Outcome: Progressing as expected Problem: Mental Status - Impaired Goal: Able to achieve maximum level of cognitive ability 02/02/2020222 by Emilie Schmidt RN Outcome: Progressing as expected 02/02/202056 by Emilie Schmidt RN Outcome: Progressing as expected Problem: Respiratory Function - Impaired Goal: Adequate oxygenation 02/02/2020222 by Emilie Schmidt RN Outcome: Progressing as expected 02/02/202056 by Emilie Schmidt RN Outcome: Progressing as expected Goal: Adequate work of breathing 02/02/2020222 by Emilie Schmidt RN Outcome: Progressing as expected 02/02/202056 by Emilie Schmidt RN Outcome: Progressing as expected NTCEmilie Beasley RN - 02/02/2020 12:57 AM CDT Problem: Pain Goal: Reduction in pain sensation Outcome: Progressing as expected Problem: Falls, Risk of Goal: Absence of falls Outcome: Progressing as expected Problem: Discharge Planning Goal: Adequate for discharge Outcome: Progressing as expected Goal: Effective communication Outcome: Progressing as expected Problem: Mental Status - Impaired Goal: Able to achieve maximum level of cognitive ability Outcome: Progressing as expected Problem: Respiratory Function - Impaired Goal: Adequate oxygenation Outcome: Progressing as expected Goal: Adequate work of breathing Outcome: Progressing as expected are Erika Maldonado RN - 02/01/2020 6:31 PM CDT Problem: Pain Goal: Reduction in pain sensation Outcome: Progressing as expected Problem: Falls, Risk of Goal: Absence of falls Outcome: Progressing as expected Problem: Discharge Planning Goal: Adequate for discharge Outcome: Progressing as expected Goal: Effective communication Outcome: Progressing as expected Problem: Mental Status - Impaired Goal: Able to achieve maximum level of cognitive ability Outcome: Progressing as expected Problem: Respiratory Function - Impaired Goal: Adequate oxygenation Outcome: Progressing as expected Goal: Adequate work of breathing Outcome: Progressing as expected are Jhonatan Romo RN - 02/01/2020 12:41 AM CDT Problem: Pain Goal: Reduction in pain sensation Outcome: Progressing as expected D Nurse Note - Katty Sanchez RN - 01/31/2020 5:30 PM CDTUpdated patient's [place] on patient's transfer to Room 2220 D Nurse Note - Katty Sanchez RN - 01/31/2020 5:23 PM CDTReport called to [place] at this time. Updated on patient's Medical history, history of present illness, medications and procedures performed in the ED. documented in this encounter Plan of Treatment Name Type Priority Associated Diagnoses Date/Ti me ANTI-NUCLEAR LAB Routine 02/02/2020 2:5 8 PM ANTIBODY-PATHOLOGIST CDT INTERPRETATION BLOOD CULTURE SCREEN LAB Routine 5:19 PM CDT BLOOD CULTURE SCREEN LAB Routine 020 5:19 PM CDT Name Type Priority Associated Diagnoses Order S chedule ANTI-NUCLEAR LAB Routine ONCE for 1 Occu rrences ANTIBODY-PATHOLOGIST startin g 02/03/2020 INTERPRETATION until Health Maintenance Due Date Last Done Comments PNEUMOCOCCAL 0-64 YEARS COMBINED SERIES (1 1968 of 1 - PPSV23) Depression Screening 1974 DTaP,Tdap,and Td Vaccines (1 - Tdap) 1981 PAP SMEAR 11/02/1983 Breast Cancer Screening (MAMMOGRAM) 2002 COLON CANCER SCREENING FIT DNA EVERY 3 2012 YEARS COLON CANCER SCREENING SIGMOIDOSCOPY EVERY 2012 5 YEARS COLONOSCOPY 2012 Zoster Recombinant Vaccine (SHINGRIX) (1 2012 of 2) INFLUENZA VACCINE (#1) 2019 02/27/2013 COLON CANCER SCREENING ANNUAL FIT/FOBT 02/02/2021 0 Colorectal Cancer Screening 02/02/2021 HEPATITIS C (HCV) SCREEN Completed 02/02/2020, 11/15/2018 documented as of this encounter Procedures Procedure Name Priority Date/Time Associated Diagnosis Comme nts MR BRAIN WO CONTRAST Routine 02/08/2020 8:47 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 CBC WITH DIFF Routine 02/07/2020 3:51 Results fo r AM CDT this procedure are in the results section. BASIC METABOLIC PANEL Routine 02/07/2020 3:51 Re sults for (NA, K, CL, CO2, AM CDT this proced ure GLUCOSE, BUN, are in the CREATININE, CA) results section. CBC WITH DIFF Routine 02/05/2020 4:37 Results fo r AM CDT this procedure are in the results section. COMP. METABOLIC PANEL Routine 02/05/2020 4:37 Re sults for ([id number]) AM CDT this procedure are in the results section. MR CERVICAL SPINE WO Routine 02/04/2020 7:24 Altered mental R esults for CONTRAST PM CDT status, unspecified this pro cedure altered mental status are in the type results Somnolence section. N-TERMINAL PRO-BNP Routine 02/04/2020 5:01 Resul ts for AM CDT this procedure are in the results section. CBC WITH DIFF Routine 02/04/2020 5:01 Results fo r AM CDT this procedure are in the results section. COMP. METABOLIC PANEL Routine 02/04/2020 5:01 Re sults for ([id number]) AM CDT this procedure are in the results section. MAGNESIUM Routine 02/04/2020 5:01 Results for AM CDT this procedure are in the results section. BLOOD CULTURE SCREEN Routine 02/03/2020 5:19 PM CDT BLOOD CULTURE SCREEN Routine 02/03/2020 5:19 PM CDT RENAL ARTERY DUPLEX [place] 02/03/2020 12:42 BY VASCULAR LAB PM CDT AMMONIA, PLASMA [place] 02/03/2020 12:06 Results for PM CDT this procedure are in the results section. SMOOTH MUSCLE AB,IGG Routine 02/03/2020 11:43 Res ults for W/REFLEX AM CDT this procedure are in the results section. MITOCHONDRIAL M2 AB, Routine 02/03/2020 11:43 Res ults for IGG AM CDT this procedure are in the results section. OCCULT (GUAIAC) BLOOD Routine 02/03/2020 11:42 Re sults for AM CDT this procedure are in the results section. N-TERMINAL PRO-BNP Routine 02/03/2020 3:45 Resul ts for AM CDT this procedure are in the results section. CBC WITH DIFF Routine 02/03/2020 3:45 Results fo r AM CDT this procedure are in the results section. COMP. METABOLIC PANEL Routine 02/03/2020 3:45 Re sults for ([id number]) AM CDT this procedure are in the results section. MAGNESIUM Routine 02/03/2020 3:45 Results for AM CDT this procedure are in the results section. URIC ACID Routine 02/03/2020 3:45 Results for AM CDT this procedure are in the results section. CREATINE KINASE Routine 02/03/2020 3:45 Results for AM CDT this procedure are in the results section. PHOSPHORUS Routine 02/03/2020 3:45 Results for AM CDT this procedure are in the results section. BLOOD CULTURE SCREEN Routine 02/02/2020 3:19 Res ults for PM CDT this procedure are in the results section. BLOOD CULTURE WORKUP Routine 02/02/2020 2:58 Res ults for PM CDT this procedure are in the results section. PROCALCITONIN [place] 02/02/2020 2:58 Results fo r PM CDT this procedure are in the results section. HAV ANTIBODY (IGG AND Routine 02/02/2020 2:58 Re sults for IGM) PM CDT this procedure are in the results section. HCV ANTIBODY Routine 02/02/2020 2:58 Results for PM CDT this procedure are in the results section. HEPATITIS B SURFACE Routine 02/02/2020 2:58 Resu lts for ANTIGEN PM CDT this procedure are in the results section. HEPATITIS B SURFACE Routine 02/02/2020 2:58 Resu lts for ANTIBODY PM CDT this procedure are in the results section. ANTI-NUCLEAR ANTIBODY Add-on 02/02/2020 2:58 Re sults for SCREEN PM CDT this procedure are in the results section. PROTHROMBIN TIME / [place] 02/02/2020 2:58 Resul ts for INR PM CDT this procedure are in the results section. VALPROIC ACID, FREE [place] 02/02/2020 2:58 Resu lts for PM CDT this procedure are in the results section. VALPROIC ACID, TOTAL [place] 02/02/2020 2:58 Res ults for PM CDT this procedure are in the results section. CERULOPLASMIN Add-on 02/02/2020 2:58 Results fo r PM CDT this procedure are in the results section. BLOOD CULTURE SCREEN Routine 02/02/2020 2:58 Res ults for PM CDT this procedure are in the results section. LITHIUM Routine 02/02/2020 6:31 Results for AM CDT this procedure are in the results section. LIPID PANEL [place] Add-On 02/02/2020 6:31 Results for ([id number])(TOTAL AM CDT this procedure CHOLESTEROL, are in the TRIGLYCERIDES, HDL) results section. COMP. METABOLIC PANEL Routine 02/02/2020 6:31 Re sults for ([id number]) AM CDT this procedure are in the results section. LIPASE Routine 02/02/2020 6:31 Results for AM CDT this procedure are in the results section. CREATINE KINASE [place] Add-On 02/02/2020 6:31 Results for AM CDT this procedure are in the results section. POCT GLUCOSE Routine 02/02/2020 6:24 Results for (AUTOMATED) AM CDT this procedure are in the results section. GLYCOSYLATED [place] Add-On 02/02/2020 3:21 Results for HEMOGLOBIN (A1C) AM CDT this proced ure are in the results section. CBC WITH DIFF Routine 02/02/2020 3:21 Results fo r AM CDT this procedure are in the results section. LITHIUM Routine 02/02/2020 3:21 Results for AM CDT this procedure are in the results section. COMP. METABOLIC PANEL Routine 02/02/2020 3:21 Re sults for ([id number]) AM CDT this procedure are in the results section. LIPASE Routine 02/02/2020 3:21 Results for AM CDT this procedure are in the results section. ACUTE CARE VENOUS Routine 02/01/2020 2:23 Result s for BLOOD GAS PM CDT this procedure are in the results section. US ABDOMEN COMPLETE Routine 02/01/2020 11:39 Acute kidne y injury Results for AM CDT Chronic pancreatitis, this p rocedure unspecified are in the pancreatitis typ e results Elevated liver section. enzymes Acute cystitis without hematuria POCT GLUCOSE Routine 02/01/2020 7:46 Results for (AUTOMATED) AM CDT this procedure are in the results section. CBC WITH DIFF Routine 02/01/2020 5:09 Results fo r AM CDT this procedure are in the results section. LITHIUM Routine 02/01/2020 5:09 Results for AM CDT this procedure are in the results section. COMP. METABOLIC PANEL Routine 02/01/2020 5:09 Re sults for ([id number]) AM CDT this procedure are in the results section. LIPASE Routine 02/01/2020 5:09 Results for AM CDT this procedure are in the results section. FOLATE Routine 01/31/2020 7:10 Results for PM CDT this procedure are in the results section. VITAMIN B12, LEVEL Routine 01/31/2020 7:10 Resul ts for PM CDT this procedure are in the results section. OSMOLALITY SERUM Routine 01/31/2020 7:10 Results for PM CDT this procedure are in the results section. ABG+COOX+NA+K+GLU+CA2 STAT 01/31/2020 3:39 Altered mental Results for + PM CDT status, unspecified this pro cedure altered mental status are in the type results section. GRAM POSITIVE BLOOD Routine 01/31/2020 1:21 Altered mental Re sults for PATHOGENS DNA PM CDT status, unspecified this pr ocedure PROBE-AEROBIC altered mental status are i n the type results section. ADC OR PERICO ONLY - Add-on 01/31/2020 1:21 Re sults for RPR PM CDT this procedure are in the results section. BLOOD CULTURE WORKUP STAT 01/31/2020 1:21 Altered mental R esults for PM CDT status, unspecified this pro cedure altered mental status are in the type results section. VALPROIC ACID, TOTAL STAT 01/31/2020 1:21 Altered mental R esults for PM CDT status, unspecified this pro cedure altered mental status are in the type results Acute kidney injury section. SALICYLATE STAT 01/31/2020 1:21 Altered mental Results f or PM CDT status, unspecified this pro cedure altered mental status are in the type results Acute kidney injury section. LITHIUM STAT 01/31/2020 1:21 Altered mental Results f or PM CDT status, unspecified this pro cedure altered mental status are in the type results Acute kidney injury section. ACETAMINOPHEN STAT 01/31/2020 1:21 Altered mental Results for PM CDT status, unspecified this pro cedure altered mental status are in the type results Acute kidney injury section. IRON PANEL Add-on 01/31/2020 1:21 Results for PM CDT this procedure are in the results section. BLOOD CULTURE SCREEN STAT 01/31/2020 1:21 Altered mental R esults for PM CDT status, unspecified this pro cedure altered mental status are in the type results section. XR CHEST 1 VW STAT 01/31/2020 12:09 Altered mental Results for PM CDT status, unspecified this pro cedure altered mental status are in the type results section. XR ABDOMEN 1 VW STAT 01/31/2020 12:09 Altered mental Result s for PM CDT status, unspecified this pro cedure altered mental status are in the type results section. CT HEAD WO CONTRAST STAT 01/31/2020 11:58 Altered mental Re sults for AM CDT status, unspecified this pro cedure altered mental status are in the type results section. ADC / LCC - DRUG STAT 01/31/2020 11:13 Altered mental Resul ts for SCREEN TRIAGE AM CDT status, unspecified this pr ocedure altered mental status are in the type results section. URINE CULTURE STAT 01/31/2020 11:13 Altered mental Results for AM CDT status, unspecified this pro cedure altered mental status are in the type results section. URINALYSIS STAT 01/31/2020 11:13 Altered mental Results f or AM CDT status, unspecified this pro cedure altered mental status are in the type results section. LAB ONLY COVID STAT 01/31/2020 11:00 Altered mental Results for INTERPRETATION AM CDT status, unspecified this p rocedure altered mental status are in the type results section. COVID-19 (ID NOW STAT 01/31/2020 11:00 Altered mental Resul ts for RAPID TESTING) AM CDT status, unspecified this p rocedure altered mental status are in the type results section. DIFF CONSULT Routine 01/31/2020 10:58 Results for INTERPRETATION AM CDT this procedur e are in the results section. N-TERMINAL PRO-BNP STAT 01/31/2020 10:58 Altered mental Res ults for AM CDT status, unspecified this pro cedure altered mental status are in the type results section. RETICULOCYTES Add-on 01/31/2020 10:58 Results fo r AUTOMATED AM CDT this procedure are in the results section. CBC WITH DIFF STAT 01/31/2020 10:58 Altered mental Results for AM CDT status, unspecified this pro cedure altered mental status are in the type results section. DIFF CONSULT Add-on 01/31/2020 10:58 Results for INTERPRETATION AM CDT this procedur e are in the results section. ETHANOL STAT Add-On 01/31/2020 10:58 Transaminitis Results for AM CDT Chronic pancreatitis, this p rocedure unspecified are in the pancreatitis type results section. BASIC METABOLIC PANEL STAT 01/31/2020 10:58 Altered mental Results for (NA, K, CL, CO2, AM CDT status, unspecified this procedure GLUCOSE, BUN, altered mental status are i n the CREATININE, CA) type results section. HEPATIC FUNCTION STAT 01/31/2020 10:58 Altered mental Resul ts for PANEL ([id number]) AM CDT status, unspecified this pr ocedure (ALB,T.PRO,BILI altered mental status are in the T,BU/BC,ALT,AST,ALK type results PHOS) section. THYROID STIMULATING Add-on 01/31/2020 10:58 Resu lts for HORMONE AM CDT this procedure are in the results section. TROPONIN I STAT 01/31/2020 10:58 Altered mental Results f or AM CDT status, unspecified this pro cedure altered mental status are in the type results section. AMMONIA, PLASMA STAT 01/31/2020 10:58 Altered mental Result s for AM CDT status, unspecified this pro cedure altered mental status are in the type results section. FERRITIN SERUM Add-on 01/31/2020 10:58 Results f or AM CDT this procedure are in the results section. LIPASE STAT 01/31/2020 10:58 Altered mental Results f or AM CDT status, unspecified this pro cedure altered mental status are in the type results section. CREATINE KINASE STAT Add-On 01/31/2020 10:58 Altered mental Result s for AM CDT status, unspecified this pro cedure altered mental status are in the type results Acute kidney injury section. BLOOD CULTURE SCREEN STAT 01/31/2020 10:58 Altered mental R esults for AM CDT status, unspecified this pro cedure altered mental status are in the type results section. LACTIC ACID WHOLE STAT 01/31/2020 10:57 Altered mental Resu lts for BLOOD AM CDT status, unspecified this pro cedure altered mental status are in the type results section. EKG-12 LEAD Routine 01/31/2020 10:48 AM CDT EKG-12 LEAD STAT 01/31/2020 10:40 AM CDT NOTICE OF PRIVACY Routine 01/31/2020 10:38 PRACTICES AM CDT CONSENT/REFUSAL FOR Routine 01/31/2020 10:37 DIAGNOSIS AND AM CDT TREATMENT HOSPITAL ADMISSION Routine 01/31/2020 12:01 AM CDT HOSPITAL ADM - MISC Routine 01/31/2020 12:01 AM CDT EMERGENCY DEPARTMENT Routine 01/31/2020 12:01 DOCUMENTS AM CDT EXTERNAL PROVIDER Routine 01/31/2020 12:01 RECORDS AM CDT documented in this encounter Results MR BRAIN WO CONTRAST (02/08/2020 8:47 AM CDT) Specimen Impressions Performed At Impression: PACS/VR/DOSE 1. Normal MRI brain. 2. Mastoid effusions. 3. Right petrous apex effusion. Narrative Performed At Exam: MR BRAIN WO CONTRAST PACS/VR/DOSE Clinical History: Stroke suspected, foca l neuro deficit, > 6 hrs Technique:Routine MR brain without contr ast Comparison: CT brain dated 02/01/2020 Findings: Diffusion-weighted images are normal. No acute infarction is identified. Bilateral mastoid effusions are present. Minimal right petrous apex fluid. A single focus of T2 hyperintensities noted in the rig ht posterior frontal subcortical region. No other focal signa l abnormality is identified elsewhere in the brain. The brainstem an d cerebellum are normal. The intracranial flow voids are normal. The gradient-echo images do not demonstr ate any evidence of intracranial hemorrhage. Procedure Note [facility], Radiant Results Inft User - 2019 12:25 PM CDT Exam: MR BRAIN WO CONTRAST Clinical History: Stroke suspected, foca l neuro deficit, > 6 hrs Technique:Routine MR brain without contr ast Comparison: CT brain dated 02/01/2020 Findings: Diffusion-weighted images are normal. No acute infarction is identified. Bilateral mastoid effusions are present. Minimal right petrous apex fluid. A single focus of T2 hyperintensities no gulshan in the right posterior frontal subcortical region. No other focal signa l abnormality is identified elsewhere in the brain. The brainstem an d cerebellum are normal. The intracranial flow voids are normal. The gradient-echo images do not demonstr ate any evidence of intracranial hemorrhage. IMPRESSION Impression: 1. Normal MRI brain. 2. Mastoid effusions. 3. Right petrous apex effusion. Performing Organization Address City/State/Zipcode Phone Number PACS/VR/DOSE BASIC METABOLIC PANEL (NA, K, CL, CO2, GLUCOSE, BUN, CREATININE, CA) (02/07/2020 3:51 AM CDT) NA 136 135 - 145 [facility] mmol/L [facility] K 4.3Comment: 3.5 - 5.0 [facility] Slight hemolysis mmol/L [facility] CL 104 98 - 108 [facility] mmol/L [facility] CO2 TOTAL 26 23 - 31 [facility] mmol/L [facility] AGAP 6 2 - 16 [facility] BUN 12Comment: Slight 7 - 23 mg/dL [facility] hemolysis [facility] GLUCOSE 98 70 - 110 [facility] mg/dL [facility] CREATININE 0.50 0.50 - 1.04 [facility] mg/dL [facility] CALCIUM 8.9 8.6 - 10.6 [facility] mg/dL [facility] eGFR Calculation 127.2 mL/min/1.73m2 [facility] (Non- [facility]) [facility] eGFR Calculation 154.1 mL/min/1.73m2 [facility] () [facility] Specimen Blood - ARM, RIGHT Narrative Performed At [facility] [employer] Rate [facility] (GFR) and Staging of Kidney Disease* [place] + + --+ + | GFR (mL/min/1.73 m2) | With Kidney Damage | Without Kidney Damage + + --+ + | >90 | Stage one | Normal + + --+ + | 60-89 | Stage two | Decreased GFR + + --+ + | 30-59 | Stage three | Stage three + + --+ + | 15-29 | Stage four | Stage four + + --+ + | <15 (or dialysis) | Stage five | Stage five + + --+ + *Each stage assumes the associated GFR [...] tests). Performing Organization Address City/State/Zipcode Phone Number [facility] CLIA: [id number] [place] [address] [facility] [address] CBC WITH DIFF (02/07/2020 3:51 AM CDT) [facility] WBC 5.24 4.30 - 11.10 [facility] 10*3/L [facility] RBC 3.19 (L) 3.93 - 5.25 [facility] 10*6/L [facility] HGB 10.0 (L) 11.6 - 15.0 [facility] g/dL [facility] HCT 30.8 (L) 35.7 - 45.2 % [facility] MCV 96.6 (H) 80.6 - 95.5 fL [facility] MCH 31.3 25.9 - 32.8 pg [facility] MCHC 32.5 31.6 - 35.1 [facility] g/dL [facility] RDW-SD 48.5 39.0 - 49.9 fL [facility] RDW-CV 13.9 12.0 - 15.5 % [facility] PLT 273 166 - 358 [facility] 10*3/L [facility] MPV 9.1 (L) 9.5 - 12.9 fL [facility] NRBC/100 WBC 0.0 0.0 - 10.0 /100 [facility] WBCs [facility] NRBC x10^3 <0.01 10*3/L [facility] GRAN MAT (NEUT) % 69.8 % [facility] I[facility]AN % 0.40 % [facility] LYMPH % 21.9 % [facility] MONO % 6.7 % [facility] EOS % 0.8 % [facility] BASO % 0.4 % [facility] GRAN MAT x10^3(ANC) 3.66 1.88 - 7.09 [facility] 10*3/uL [facility] IMM GRAN x10^3 <0.03 0.00 - 0.06 [facility] 10*3/uL [facility] LYMPH x10^3 1.15 (L) 1.32 - 3.29 [facility] 10*3/uL [facility] MONO x10^3 0.35 0.33 - 0.92 [facility] 10*3/uL [facility] EOS x10^3 0.04 0.03 - 0.39 [facility] 10*3/uL [facility] BASO x10^3 <0.03 0.01 - 0.07 [facility] 10*3/uL [facility] Specimen Blood - ARM, RIGHT Performing Organization Address City/State/Zipcode Phone Number [facility] CLIA: [id number] [place] [address] [facility] [address] CBC WITH DIFF (02/05/2020 4:37 AM CDT) [facility] WBC 5.08 4.30 - 11.10 [facility] 10*3/L [facility] RBC 3.06 (L) 3.93 - 5.25 [facility] 10*6/L [facility] HGB 9.4 (L) 11.6 - 15.0 [facility] g/dL [facility] HCT 30.1 (L) 35.7 - 45.2 % [facility] MCV 98.4 (H) 80.6 - 95.5 fL [facility] MCH 30.7 25.9 - 32.8 pg [facility] MCHC 31.2 (L) 31.6 - 35.1 [facility] g/dL [facility] RDW-SD 48.1 39.0 - 49.9 fL [facility] RDW-CV 13.4 12.0 - 15.5 % [facility] PLT 229 166 - 358 [facility] 10*3/L [facility] MPV 8.7 (L) 9.5 - 12.9 fL [facility] NRBC/100 WBC 0.0 0.0 - 10.0 /100 [facility] WBCs [facility] NRBC x10^3 <0.01 10*3/L [facility] GRAN MAT (NEUT) % 68.3 % [facility] % 0.20 % [facility] LYMPH % 24.2 % [facility] MONO % 5.5 % [facility] EOS % 1.4 % [facility] BASO % 0.4 % [facility] GRAN MAT x10^3(ANC) 3.47 1.88 - 7.09 [facility] 10*3/uL [facility] IMM GRAN x10^3 <0.03 0.00 - 0.06 [facility] 10*3/uL [facility] LYMPH x10^3 1.23 (L) 1.32 - 3.29 [facility] 10*3/uL [facility] MONO x10^3 0.28 (L) 0.33 - 0.92 [facility] 10*3/uL [facility] EOS x10^3 0.07 0.03 - 0.39 [facility] 10*3/uL [facility] BAS[facility] x10^3 <0.03 0.01 - 0.07 [facility] 10*3/uL [facility] Specimen Blood - ARM, LEFT Performing Organization Address City/State/Zipcode Phone Number [facility] CLIA: [id number] [place] [address] [facility] [address] COMP. METABOLIC PANEL ([id number]) (02/05/2020 4:37 AM CDT) [facility] nature NA 140 135 - 145 [facility] mmol/L [facility] K 3.7 3.5 - 5.0 [facility] mmol/L [facility] CL 107 98 - 108 mmol/L [facility] CO2 TOTAL 25 23 - 31 mmol/L [facility] AGAP 8 2 - 16 [facility] BUN 11 7 - 23 mg/dL [facility] GLUCOSE 90 70 - 110 mg/dL [facility] CREATININE 0.58 0.50 - 1.04 [facility] mg/dL [facility] TOTAL BILI 0.9 0.1 - 1.1 mg/dL [facility] CALCIUM 8.9 8.6 - 10.6 [facility] mg/dL [facility] T PROTEIN 6.7 6.3 - 8.2 g/dL [facility] ALBUMIN 3.5 3.5 - 5.0 g/dL [facility] ALK PHOS 518 (H) 34 - 122 U/L [facility] ALTv 84 (H) 5 - 35 U/L [facility] AST(SGOT) 49 (H) 13 - 40 U/L [facility] eGFR Calculation 107.2 mL/min/1.73m2 [facility] (Non- [facility]) [place] eGFR Calculation 129.9 mL/min/1.73m2 [facility] () [facility] Specimen Blood - ARM, LEFT Narrative Performed At [facility] [facility] (GFR) and Staging of Kidney Disease* CAMPUS + + --+ + | GFR (mL/min/1.73 m2) | With Kidney Damage | Without Kidney Damage + + --+ + | >90 | Stage one | Normal + + --+ + | 60-89 | Stage two | Decreased GFR + + --+ + | 30-59 | Stage three | Stage three + + --+ + | 15-29 | Stage four | Stage four + + --+ + | <15 (or dialysis) | Stage five | Stage five + + --+ + *Each stage assumes the associated GFR [...] tests). Performing Organization Address City/State/Zipcode Phone Number [facility] CLIA: [id number] [place] [address] [facility] [address] MR CERVICAL SPINE WO CONTRAST (02/04/2020 7:24 PM CDT) Specimen Impressions Performed At PACS/VR/DOSE Mild degenerative changes most pronounce d at C5-C6 and C6-C7 as above. RL: [id number] AFC: [id number] Narrative Performed At Ordering physician: GET AGUILLON PACS/VR/DOSE INDICATION: Neck pain, radiculopathy COMPARISON: None TECHNIQUE: MRI of the cervical spine was performed without the administration of intravenous contrast. FINDINGS: The cervical spine is in deysi l anatomic alignment. The craniocervical junction is unremarkable. There is preservation of normal vertebral body height and signal. There is no abnormal cord signal or cord compression. There is diffuse loss of in tervertebral disc height and signal, consistent with degenerative dis c disease. C5-C6: Mild broad-based disc osteophyte complex slight ly eccentric to the left. There is mild central canal stenosis and mild le ft neural foraminal stenosis. C6-C7: Mild to moderate broad-based disc osteophyte complex. There is moderate central canal stenosis, with the canal measur ing 8.5 mm AP. There is bilateral moderate neural foraminal s tenosis. Procedure Note [facility], Radiant Results Inft User - 2019 1:00 AM CDT Ordering physician: GET AGUILLON INDICATION: Neck pain, radiculopathy COMPARISON: None TECHNIQUE: MRI of the cervical spine was performed without the administration of intravenous contrast. FINDINGS: The cervical spine is in deysi l anatomic alignment. The craniocervical junction is unremarkable. There is preservation of normal vertebral body height and signal. There is no abnormal cord signal or cord compression. There is diffuse loss of in tervertebral disc height and signal, consistent with degenerative dis c disease. C5-C6: Mild broad-based disc osteophyte complex slightly eccentric to the left. There is mild central canal stenos is and mild left neural foraminal stenosis. C6-C7: Mild to moderate broad-based disc osteophyte complex. There is moderate central canal stenosis, with th e canal measuring 8.5 mm AP. There is bilateral moderate neural foraminal s tenosis. IMPRESSION Mild degenerative changes most pronounce d at C5-C6 and C6-C7 as above. RL: [id number] AFC: [id number] Performing Organization Address City/State/Zipcode Phone Number PACS/VR/DOSE CBC with Differential (02/04/2020 5:01 AM CDT) [facility] WBC 7.54 4.30 - 11.10 [facility] 10*3/L [facility] RBC 3.15 (L) 3.93 - 5.25 [facility] 10*6/L [facility] HGB 10.1 (L) 11.6 - 15.0 [facility] g/dL [facility] HCT 30.5 (L) 35.7 - 45.2 % [facility] MCV 96.8 (H) 80.6 - 95.5 fL [facility] MCH 32.1 25.9 - 32.8 pg [facility] MCHC 33.1 31.6 - 35.1 [facility] g/dL [facility] RDW-SD 47.9 39.0 - 49.9 fL [facility] RDW-CV 13.7 12.0 - 15.5 % [facility] PLT 244 166 - 358 [facility] 10*3/L [facility] MPV 8.5 (L) 9.5 - 12.9 fL [facility] NRBC/100 WBC 0.0 0.0 - 10.0 /100 [facility] WBCs [facility] NRBC x10^3 <0.01 10*3/L [facility] GRAN MAT (NEUT) % 74.2 % [facility] % 0.40 % [facility] LYMPH % 16.6 % [facility] MONO % 6.8 % [facility] EOS % 1.7 % [facility] BASO % 0.3 % [facility] GRAN MAT x10^3(ANC) 5.60 1.88 - 7.09 [facility] 10*3/uL [facility] IMM GRAN x10^3 0.03 0.00 - 0.06 [facility] 10*3/uL [facility] LYMPH x10^3 1.25 (L) 1.32 - 3.29 [facility] 10*3/uL [facility] MONO x10^3 0.51 0.33 - 0.92 [facility] 10*3/uL [facility] EOS x10^3 0.13 0.03 - 0.39 [facility] 10*3/uL [facility] BASO x10^3 <0.03 0.01 - 0.07 [facility] 10*3/uL [facility] Specimen Blood - ARM, RIGHT Performing Organization Address City/[facility]/Zipcode Phone Number [facility] CLIA: [id number] [place] [address] [facility] [address] N-TERMINAL PRO-BNP (02/04/2020 5:01 AM CDT) Pathologist Sig nature NT-proBNP 403 (H) <=125 pg/mL [facility] Specimen Blood - ARM, RIGHT Narrative Performed At Biotin has been reported to cause a [facility] negative bias, interpret results relative to patient's use of biotin. Performing Organization Address [facility] Phone Number [facility] CLIA: [id number] [place] [address] [facility] [address] MAGNESIUM (02/04/2020 5:01 AM CDT) Pathologist Sig nature MAGNESIUM 1.8 1.7 - 2.4 mg/dL [facility] Specimen Blood - ARM, RIGHT Performing Organization Address City/[facility]/Zipcode Phone Number [facility] CLIA: [id number] [place] [address] [facility] [address] COMP. METABOLIC PANEL (41474) (02/04/2020 5:01 AM CDT) Pathologist Sig nature NA 138 135 - 145 [facility] mmol/L [facility] K 3.7 3.5 - 5.0 [facility] mmol/L [facility] CL 106 98 - 108 mmol/L [facility] CO2 TOTAL 27 23 - 31 mmol/L [facility] AGAP 5 2 - 16 [facility] BUN 9 7 - 23 mg/dL [facility] GLUCOSE 105 70 - 110 mg/dL [facility] CREATININE 0.59 0.50 - 1.04 [facility] mg/dL [facility] TOTAL BILI 0.9 0.1 - 1.1 mg/dL [facility] CALCIUM 9.0 8.6 - 10.6 [facility] mg/dL [facility] T PROTEIN 6.4 6.3 - 8.2 g/dL [facility] ALBUMIN 3.2 (L) 3.5 - 5.0 g/dL [facility] ALK PHOS 486 (H) 34 - 122 U/L [facility] ALTv 91 (H) 5 - 35 U/L [facility] AST(SGOT) 41 (H) 13 - 40 U/L [facility] eGFR Calculation 105.1 mL/min/1.73m2 [facility] (Non- [facility]) WHITING eGFR Calculation 127.3 mL/min/1.73m2 [facility] () [facility] Specimen Blood - ARM, RIGHT Narrative Performed At Association of Glomerular Filtration Rate [facility] (GFR) and Staging of Kidney Disease* CAMPUS + + --+ + | GFR (mL/min/1.73 m2) | With Kidney Damage | Without Kidney Damage + + --+ + | >90 | Stage one | Normal + + --+ + | 60-89 | Stage two | Decreased GFR + + --+ + | 30-59 | Stage three | Stage three + + --+ + | 15-29 | Stage four | Stage four + + --+ + | <15 (or dialysis) | Stage five | Stage five + + --+ + *Each stage assumes the associated GFR [...] tests). Performing Organization Address City/State/Zipcode Phone Number [facility] CLIA: [id number] [place] [address] [facility] [address] AMMONIA, PLASMA (02/03/2020 12:06 PM CDT) Pathologist Sig nature AMMONIA <9 (L) 9 - 33 umol/L [facility] Specimen Blood - VENOUS Performing Organization Address City/[facility]/Zipcode Phone Number [facility] CLIA: [id number] [place] [address] SMOOTH MUSCLE AB,IGG W/REFLEX (02/03/2020 11:43 AM CDT) F-ACTIN (SMOOTH 11 0 - 19 Units [facility] MUSCLE) AB, Comment: IGG(BEAKER) If F-Actin (Smooth Muscle) Antibody, IgG is negative, the Smooth Muscle Antibody titer by IFA is not performed. REFERENCE INTERVAL: F-Actin (Smooth Muscle) Antibody, IgG by MELONY 19 Units or less ....... Negative 20 - 30 Units .......... Weak Positive-Suggest repe at testing in two to three weeks with fresh spe cimen. 31 Units or greater..... Positive-Suggestive of autoimmune hep atitis type 1 or chronic act kourtney hepatitis. F-actin IgG antibodies have been shown to have increas ed sensitivity for autoimmune hepatitis (AIH) but lower s pecificity than smooth muscle antibodies (SMA). F-actin IgG antib odies can also be seen in SMA-negative disease controls (non-AIH ), especially in patients with primary biliary cirrhosis and chronic hepatitis C infections. Some patients with AIH may be SMA-positive but negative for F-actin IgG. Consider testing for SMA by IFA if suspicion for AIH is strong. Performed By: [employer] [address] [place] [address] Guzzler Builder: Praveena Mantilla MD Specimen Blood - VENOUS Performing Organization Address [facility]/Zipcode Phone Number [employer] [address] [place] [address] MITOCHONDRIAL M2 AB, IGG (02/03/2020 11:43 AM CDT) Pathologist Sig nature AMA 144.1 (H) 0.0 - 24.9 Units [facility] Comment: REFERENCE INTERVAL: Mitochondrial (M2) Antibody, IgG 20.0 Units or less ......... Negative 20.1 - 24.9 Units........... Equivocal 25.0 Units or greater....... Positive Anti-mitochondrial antibodies (AMA) are thought to be present in 90-95% of patients with primary biliary cholangitis (P BC). However, the frequency of detected antibodies may be c ohort or assay dependent, as lower sensitivities have been repo rted. Not all PBC patients are positive for AMA; some patients m ay be positive for SP100 and/or GP210 antibodies. A negative result does not rule out PBC. Performed By: [employer] [address] [place] [address] Guzzler Builder: Praveena Mantilla MD Specimen Blood - VENOUS Performing Organization Address [facility] Phone Number [address] [address] OCCULT (GUAIAC) BLOOD (02/03/2020 11:42 AM CDT) Pathologist Sig [facility] Occult (guaiac) Blood Negative Negative [facility] Specimen Stool - ANAL Performing Organization Address [facility] Phone Number [facility] CLIA: [id number] [place] [address] [place] [address] N-TERMINAL PRO-BNP (02/03/2020 3:45 AM CDT) Pathologist Sig [facility] NT-proBNP 850 (H) <=125 pg/mL [facility] Specimen Blood - LINE, VENOUS Narrative Performed At Biotin has been reported to cause a negative [facility] bias, interpret results relative to patient's use of biotin. Performing Organization Address [facility] Phone Number [facility] CLIA: [id number] [place], [place] [address] LABORATORY [address] URIC ACID (02/03/2020 3:45 AM CDT) Pathologist Sig [facility] URIC ACID 3.4 2.9 - 6.0 mg/dL [facility] Specimen Blood - LINE, VENOUS Performing Organization Address City/[facility] Phone Number [facility] CLIA: [id number] [place] [address] CREATINE KINASE (02/03/2020 3:45 AM CDT) Pathologist Sig [facility] CK 21 (L) 33 - 194 U/L [facility] Specimen Blood - LINE, VENOUS Performing Organization Address City/[facility] Phone Number [facility] CLIA: [id number] [place] [address] PHOSPHORUS (02/03/2020 3:45 AM CDT) Pathologist [facility] PHOSPHORUS 4.1 2.5 - 5.0 mg/dL [facility] Specimen Blood - LINE, VENOUS Performing Organization Address [facility] Phone Number [facility] CLIA: [id number] [place] [address] MAGNESIUM (02/03/2020 3:45 AM CDT) [facility] MAGNESIUM 1.7 1.7 - 2.4 mg/dL [facility] Specimen Blood - LINE, VENOUS Performing Organization Address [facility] Phone Number [facility] CLIA: [id number] [place] [address] CBC WITH DIFF (02/03/2020 3:45 AM CDT) [facility] WBC 8.19 4.30 - 11.10 [facility] 10*3/L HOSPITAL LABORATORY RBC 3.07 (L) 3.93 - 5.25 [facility] 10*6/L [facility] HGB 9.8 (L) 11.6 - 15.0 [facility] g/dL [facility] HCT 29.8 (L) 35.7 - 45.2 % [facility] MCV 97.1 (H) 80.6 - 95.[address] [facility] MCH 31.9 25.9 - 32.[address] [facility] MCHC 32.9 31.6 - 35.1 [facility] g/dL [facility] RDW-SD 47.2 39.0 - 49.[address] [facility] RDW-CV 13.2 12.0 - 15.5 % [facility] PLT 268 166 - 358 [facility] 10*3/L HOSPITAL LABORATORY MPV 8.7 (L) 9.5 - 12.[address] [facility] NRBC/100 WBC 0.0 0.0 - 10.0 /100 [facility] WBCs [facility] NRBC x10^3 <0.01 10*3/L [facility] GRAN MAT (NEUT) % 78.4 % [facility] IMM GRAN % 0.50 % [facility] LYMPH % 12.5 % [facility] MONO % 6.1 % [facility] EOS % 2.1 % [facility] BASO % 0.4 % [facility] GRAN MAT x10^3(ANC) 6.43 1.88 - 7.09 [facility] 10*3/uL [facility] IMM GRAN x10^3 0.04 0.00 - 0.06 [facility] 10*3/uL [facility] LABORATORY LYMPH x10^3 1.02 (L) 1.32 - 3.29 [facility] 10*3/uL HOSPITAL LABORATORY MONO x10^3 0.50 0.33 - 0.92 [facility] 10*3/uL HOSPITAL LABORATORY EOS x10^3 0.17 0.03 - 0.39 [facility] 10*3/uL HOSPITAL LABORATORY BASO x10^3 0.03 0.01 - 0.07 [facility] 10*3/uL [facility] Specimen Blood - LINE, VENOUS Performing Organization Address City/State/Zipcode Phone Number [facility] CLIA: [id number] [place] [address] COMP. METABOLIC PANEL ([id number]) (02/03/2020 3:45 AM CDT) Pathologist Sig nature NA 136 135 - 145 [facility] mmol/L [facility] K 3.6 3.5 - 5.0 [facility] mmol/L [facility] CL 104 98 - 108 mmol/L [facility] CO2 TOTAL 28 23 - 31 mmol/L [facility] AGAP 4 2 - 16 [facility] BUN 7 7 - 23 mg/dL [facility] GLUCOSE 138 (H) 70 - 110 mg/dL [facility] CREATININE 0.61 0.50 - 1.04 [facility] mg/dL [facility] TOTAL BILI 1.0 0.1 - 1.1 mg/dL [facility] CALCIUM 9.2 8.6 - 10.6 [facility] mg/dL [facility] T PROTEIN 6.6 6.3 - 8.2 g/dL [facility] ALBUMIN 3.5 3.5 - 5.0 g/dL [facility] ALK PHOS 584 (H) 34 - 122 U/L [facility] ALTv 131 (H) 5 - 35 U/L [facility] AST(SGOT) 49 (H) 13 - 40 U/L [facility] eGFR Calculation 101.1 mL/min/1.73m2 [facility] ([facility] LABORATORY Croatian) eGFR Calculation 122.5 mL/min/1.73m2 [facility] () [facility] Specimen Blood - LINE, VENOUS Narrative Performed At Association of Glomerular Filtration Rate (GFR) [facility] LABORATORY and Staging of Kidney Disease* + [...] tests). Performing Organization Address City/State/Zipcode Phone Number [facility] CLIA: [id number] [place] [address] LABORATORY [address] [facility] BLOOD CULTURE SCREEN (02/02/2020 3:19 PM CDT) Blood No organisms isolated No growth [facility] Culture-Aerobic Comment: HOSPITAL Previous preliminary verifie d result was Culture In Progress on 02/02/2020 at 1901 CDT LABORATORY Previous preliminary verifie d result was No growth at 24 hours on 02/03/2020 at 1601 CDT Previous preliminary verifie d result was No growth at 48 hours on 02/04/2020 at 1601 CDT Previous preliminary verifie d result was No growth at 72 hours on 02/05/2020 at 1601 CDT Blood No organisms isolated No growth [facility] Culture-Anaerobic Comment: [facility] Previous preliminary verifie d result was Culture In Progress on 02/02/2020 at 1901 CDT LABORATORY Previous preliminary verifie d result was No growth at 24 hours on 02/03/2020 at 1601 CDT Previous preliminary verifie d result was No growth at 48 hours on 02/04/2020 at 1601 CDT Previous preliminary verifie d result was No growth at 72 hours on 02/05/2020 at 1601 CDT Specimen Blood - VENOUS Performing Organization Address City/State/Zipcode Phone Number [facility] CLIA: [id number] [place] [address] BLOOD CULTURE WORKUP (02/02/2020 2:58 PM CDT) Blood Culture Coagulase negative [facility] Workup StaphylococcusComme SERVICES nt: Additional work-up performed only per request. Culture plate(s) will be saved until this date: - 02/10/20 Gram stain Isolated from [facility] aerobic bottle Gram [facility] LABORATORY positive cocci Specimen Blood - VENOUS Performing Organization Address City/State/Zipcode Phone Number [facility] CLIA: [id number] [place] [address] [place] [address] CLIA: [id number] [place] [address], LABORATORY [address] ANTI-NUCLEAR ANTIBODY SCREEN (02/02/2020 2:58 PM CDT) Pathologist Sig nature LESLY Negative Negative [facility] Specimen Blood - ARM, LEFT Narrative Performed At Cytoplasmic staining reactions observed. [facility] SERVICES Negative - No Anti-Nuclear Antibodies de tected by IFA. Positive - LESLY IFA screen performed with a 1:80 diluti on in adults and a 1:40 dilution in pediatrics. Any LESLY "Pos itive" will have titer performed and reported separately. Performing Organization Address City/[facility] Cent[facility]ode Phone Number [facility] CLIA: [id number] [place] [address] [place] [address] CERULOPLASMIN (02/02/2020 2:58 PM CDT) Pathologist Sig [facility] CERULO 55 25 - 63 mg/dL [facility] SERVICES Specimen Blood - ARM, LEFT Performing Organization Address [facility] Phone Number [facility] CLIA: [id number] [place] [address] [place] [address] VALPROIC ACID, TOTAL (02/02/2020 2:58 PM CDT) Pathologist Sig [facility] VALPROIC A <10 (L) 50 - 100 ug/mL [facility] Specimen Blood - ARM, LEFT Narrative Performed At Toxic Range: Greater than 100 [facility] LAB[facility] ug/mL Performing Organization Address City/[facility] Phone Number [facility] CLIA: [id number] [place] [address] VALPROIC ACID, FREE (02/02/2020 2:58 PM CDT) Pathologist [facility] Valproic Acid, Free <2.0 (L) 4.0 - 15.0 [facility] ug/mL SERVICES Specimen Blood - ARM, LEFT Narrative Performed At Toxic Range: Greater than 15 ug/mL [facility] SERVICES Test developed and characteristics determined by [facility] Laboratory Services. Performing Organization Address City/[facility] Phone Number [facility] CLIA: [id number] [place] [address] [place] [address] HCV ANTIBODY (02/02/2020 2:58 PM CDT) Pathologist Sig [facility] HCV Ab Negative [facility] HCV Semi-Quantitative 0.02 [facility] SERVICES Specimen Blood - ARM, LEFT Performing Organization Address City/State/Zipcode Phone Number [facility] CLIA: [id number] [place] [address] [place] [address] HAV ANTIBODY (IGG AND IGM) (02/02/2020 2:58 PM CDT) Pathologist Sig nature HAV Total Positive [facility] HAVT Semi-Quantitative 0.01 [facility] SERVICES Specimen Blood - ARM, LEFT Narrative Performed At Indicates past or present infection with HAV or exposu re to [facility] HAV due to vaccination. Performing Organization Address City/[facility] Centercode Phone Number [facility] CLIA: [id number] [place] [address] [place] [address] HEPATITIS B SURFACE ANTIGEN (02/02/2020 2:58 PM CDT) Pathologist Sig nature HBsAg Negative Negative [facility] HBsAg 0.14 [facility] Semi-Quantitative SERVICES Specimen Blood - ARM, LEFT Performing Organization Address [facility] Phone Number [facility] CLIA: [id number] [place] [address] [place] [address] HEPATITIS B SURFACE ANTIBODY (02/02/2020 2:58 PM CDT) Pathologist Sig nature HBsAB Negative [facility] HBsAb 0.00 mIU/mL [facility] Semi-Quantitative SERVICES Specimen Blood - ARM, LEFT Narrative Performed At Interpretation: Hepatitis B Surface An tibody [facility] SERVICES Negative - Patient is considered to be not immu ne to infection with HBV. Positive - Anti-HBs detected at greater than or equal to 12 mIU/mL. Patient is considered to be immune to infection with HBV. Performing Organization Address City/[facility] Cent[facility]ode Phone Number [facility] CLIA: [id number] [place] [address] [place] [address] BLOOD CULTURE SCREEN (02/02/2020 2:58 PM CDT) Blood Culture positive. No growth JOSSUE HURTADO Culture-Aerobic See Blood Culture HOSPITAL Workup for LABORATORY additional information. (AA)Comment: Previous preliminary verified result was Culture In Progress on 02/02/2020 at 1901 CDT Blood No organisms No growth [facility] Culture-Anaerobic isolatedComment: HOSPITAL Previous preliminary LABORATORY verified result was Culture In Progress on 02/03/2020 at 1314 CDT Specimen Blood - VENOUS Performing Organization Address [facility]/Zipcode Phone Number [facility] CLIA: [id number] [place] [address] PROTHROMBIN TIME / INR (02/02/2020 2:58 PM CDT) PROTIME PATIENT 12.7 12.0 - 14.7 [facility] LABORATORY INR 1.0Comment: Normal [facility] INR <1.1; Warfarin [facility] Therapeutic range LABORATORY 2.0 to 3.0 or 2.5 to 3.5, depending upon the indications. Specimen Blood - ARM, LEFT Performing Organization Address [facility] Phone Number [facility] CLIA: [id number] [place] [address] PROCALCITONIN (02/02/2020 2:58 PM CDT) Pathologist Freddy oneal Procalcitonin 0.05 <0.07 ng/mL [facility] SERVICES Specimen Blood - ARM, LEFT Narrative Performed At INTERPRETATION OF PROCALCITONIN RESULTS IN ADULTS >= 1 8 [facility] SERVICES YEARS OF AGE Initiation and discontinuation of antibiotics on patie nts with suspected or confirmed Lower Respiratory Tract Infection in Adults >= 18 years of age. + + + +----- ------ + |Procalcitonin |Interpretation |Antibiotic |Considerations |ng/mL | |recommend ation | + + + +----- ------ + | <0.1 | Bacterial | Strongly | | | infection very | discouraged | Overruling: | | unlikely | | Clinically unstable + + + + H igh risk for adverse | <0.25 | Bacterial | Discouraged | outcome | | infection | | SEE IMPORTANT NOTE | | unlikely | | + + + +----- ------ + | >=0.25 | Bacterial | Encouraged | | | infection | | | | likely | | Consider treatment failure + + + + if l evels does not decrease | >0.5 | Bacterial | Strongly | appropriately | | infection very | encouraged | | | likely | | + + + +----- ------ + Discontinuation of antibiotics in high-acuity patients with suspected or confirmed sepsis in Adults >= 18 years of age. + + + +----- ------ + |Procalcitonin |Interpretation |Antibiotic |Considerations |ng/mL | |recommend ation | + + + +----- ------ + | <0.25 | Bacterial | Strongly | | | infection very | discouraged | Overruling: | | unlikely | | Clinically unstable + + + + H igh risk for adverse | <0.5 or drop | Bacterial | Discouraged | outcome | >80% from | infection | | SEE IMPORTANT NOTE | highest PCT | unlikely | | | level | | | + + + +----- ------ + | >=0.5 | Bacterial | Encouraged | | | infection | | | | likely | | Consider treatment failure + + + + if l evels does not decrease | >1.0 | Bacterial | Strongly | appropriately | | infection very | encouraged | | | likely | | + + + +----- ------ + Percentage of drop of Procalcitonin calculation for Discontinuation of antibiotics in high-acuity patients with suspected or confirmed sepsis in Adults >= 18 years of age. Procalcitonin highest{}-Procalcitonin current{} Delta Procalcitonin = x100% Procalcitonin current {} IMPORTANT NOTE: Procalcitonin may be elevated without bacterial infection by physiologic stress related to t rauma, crouch, chronic dialysis, metastatic cancer, surgery in the past seven days, malaria, some fungal infections, and some forms of vasculitis. The interpretation algorithm may not apply to patients with immunosuppression (equivalent o f >10 mg of prednisone daily), HIV with CD4 cell count < 350 cells/mm3, active malignancy on systemic chemotherapy, solid organ transplant or [facility], or hospital acquired pneumonia. Additionally, some cli nical trials of procalcitonin have excluded patients with sh ock requiring vasopressor use, acute respiratory failure requiring mechanical ventilation, or those with known lung abscess/empyema. For further information please refer to: [email or web address] Performing Organization Address City/[facility]/Zipcode Phone Number [facility] SERVICES CLIA: [id number] [place] [address] [place] [address] CREATINE KINASE (02/02/2020 6:31 AM CDT) Pathologist Sig nature CK 37 33 - 194 U/L [facility] LABORATORY Specimen Blood - ARM, LEFT Performing Organization Address [facility]/Zipcode Phone Number [facility] CLIA: [id number] [place] [address] LABORATORY [address] [facility] LIPID PANEL ([id number])(TOTAL CHOLESTEROL, TRIGLYCERIDES, HDL) (02/02/2020 6:31 AM CDT) Pathologist Sig nature CHOL 343 (H) 120 - 200 mg/dL [facility]ORY HDL 87 >50 mg/dL [facility] HDLC RATIO 3.9 <=4.5 [facility] TRIG 131 30 - 170 mg/dL [facility] LDL CHOL 230 (H) <=160 mg/dL [facility] VLDL 26 5 - 60 mg/dL [facility] Specimen Blood - ARM, LEFT Performing Organization Address City/State/Zipcode Phone Number [facility] CLIA: [id number] [place] [address] COMP. METABOLIC PANEL (30902) (02/02/2020 6:31 AM CDT) [facility] NA 135 135 - 145 [facility] mmol/L [facility] LABORATORY K 3.5 3.5 - 5.0 [facility] mmol/L [facility] LABORATORY CL 103 98 - 108 mmol/L [facility] LABORATORY CO2 TOTAL 25 23 - 31 mmol/L [facility] LABORATORY AGAP 7 2 - 16 [facility] LABORATORY BUN 8 7 - 23 mg/dL [facility] LABORATORY GLUCOSE 148 (H) 70 - 110 mg/dL [facility] LABORATORY CREATININE 0.55 0.50 - 1.04 [facility] mg/dL [facility] LABORATORY TOTAL BILI 1.2 (H) 0.1 - 1.1 mg/dL [facility] LABORATORY CALCIUM 9.4 8.6 - 10.6 [facility] mg/dL [facility] LABORATORY T PROTEIN 6.9 6.3 - 8.2 g/dL [facility] LABORATORY ALBUMIN 3.6 3.5 - 5.0 g/dL [facility] LABORATORY ALK PHOS 723 (H) 34 - 122 U/L [facility] LABORATORY ALTv 166 (H) 5 - 35 U/L [facility] LABORATORY AST(SGOT) 72 (H) 13 - 40 U/L [facility] LABORATORY eGFR Calculation 113.9 mL/min/1.73m2 [facility] ([facility] LABORATORY Croatian) eGFR Calculation 138.1 mL/min/1.73m2 [facility] () [facility] LABORATORY Specimen Blood - ARM, LEFT Narrative Performed At Association of Glomerular Filtration Rate (GFR) [facility] LABORATORY and Staging of Kidney Disease* + [...] abnormalities in imaging tests). Performing Organization Address [facility] Phone Number [facility] CLIA: [id number] [place] [address] LIPASE (02/02/2020 6:31 AM CDT) Pathologist Sig nature LIPASE 203 0 - 220 U/L [facility] LABORATORY Specimen Blood - ARM, LEFT Performing Organization Address [facility] Phone Number [facility] CLIA: [id number] [place] [address] LITHIUM (02/02/2020 6:31 AM CDT) Pathologist Sig nature [place] 0.4 (L) 0.6 - 1.2 mmol/L [facility] HOSPITA L LABORATORY Specimen Blood - ARM, LEFT Narrative Performed At Toxic Range: Greater than 1.2 mmol/L [facility] LABORATORY Performing Organization Address [facility] Phone Number [facility] CLIA: [id number] [place] [address] LABORATORY [address] [facility] POCT GLUCOSE (AUTOMATED) (02/02/2020 6:24 AM CDT) Pathologist Sig nature POCT GLU 138 (H) 70 - 110 mg/dL [facility] LABORATORY Specimen Blood Performing Organization Address [facility] Phone Number [facility] CLIA: [id number] [place] [address] LAB[address] GLYCOSYLATED HEMOGLOBIN (A1C) (02/02/2020 3:21 AM CDT) Pathologist Sig nature HGB A1C 4.5 4.0 - 6.0 % [facility] LABORATORY Specimen Blood - LINE, VENOUS Narrative Performed At %A1C (NGSP) Interpretation (ADA) [facility] LABORATORY 4.8-5.6 Normal or (Non-Diabetic Ra nge) 5.7-6.4 Increased Risk (Pre-Diabet ic) >6.5 Diabetes Indicated Performing Organization Address City/State/Zipcode Phone Number [facility] CLIA: [id number] [place] [address] COMP. METABOLIC PANEL ([id number]) (02/02/2020 3:21 AM CDT) NA 129 (L) 135 - 145 [facility] mmol/L [facility] LABORATORY K 3.0 (L) 3.5 - 5.0 [facility] mmol/L [facility] LABORATORY CL 100 98 - 108 mmol/L [facility] LABORATORY CO2 TOTAL 22 (L) 23 - 31 mmol/L [facility] LABORATORY AGAP 7 2 - 16 [facility] LABORATORY BUN 8 7 - 23 mg/dL [facility] LABORATORY GLUCOSE 632 (HH) 70 - 110 mg/dL [facility] LABORATORY CREATININE 0.54 0.50 - 1.04 [facility] mg/dL [facility] LABORATORY TOTAL BILI 1.0 0.1 - 1.1 mg/dL [facility] LABORATORY CALCIUM 7.9 (L) 8.6 - 10.6 [facility] mg/dL [facility] LABORATORY T PROTEIN 5.3 (L) 6.3 - 8.2 g/dL [facility] LABORATORY ALBUMIN 2.7 (L) 3.5 - 5.0 g/dL [facility] LABORATORY ALK PHOS 562 (H) 34 - 122 U/L [facility] LABORATORY ALTv 138 (H) 5 - 35 U/L [facility] LABORATORY AST(SGOT) 61 (H) 13 - 40 U/L [facility] LABORATORY eGFR Calculation 116.4 mL/min/1.73m2 [facility] ([facility] LABORATORY Croatian) eGFR Calculation 141.0 mL/min/1.73m2 [facility] () [facility] LABORATORY Specimen Blood - LINE, VENOUS Narrative Performed At Association of Glomerular Filtration Rate (GFR) [facility] LABORATORY and Staging of Kidney Disease* + [...] abnormalities in imaging tests). Performing Organization Address City/[facility] Phone Number [facility] CLIA: [id number] [place] [address] LABORATORY [address] LITHIUM (02/02/2020 3:21 AM CDT) Pathologist Sig nature [place] 0.5 (L) 0.6 - 1.2 mmol/L [facility] HOSPITA L LABORATORY Specimen Blood - LINE, VENOUS Narrative Performed At Toxic Range: Greater than 1.2 mmol/L [facility] LABORATORY Performing Organization Address [facility] Phone Number [facility] CLIA: [id number] [place] [address] [place] [address] LIPASE (02/02/2020 3:21 AM CDT) Pathologist Sig nature LIPASE 140 0 - 220 U/L [facility] LABORATORY Specimen Blood - LINE, VENOUS Performing Organization Address [facility] Phone Number [facility] CLIA: [id number] [place] [address] [place] [address] CBC WITH DIFF (02/02/2020 3:21 AM CDT) Pathologist Sig nature WBC 6.58 4.30 - 11.10 [facility] 10*3/L [facility] LABORATORY RBC 2.63 (L) 3.93 - 5.25 [facility] 10*6/L HOSPITAL LABORATORY HGB 8.2 (L) 11.6 - 15.0 [facility] g/dL [facility] LABORATORY HCT 26.3 (L) 35.7 - 45.2 % [facility] LABORATORY MCV 100.0 (H) 80.6 - 95.[address] [facility] LABORATORY MCH 31.2 25.9 - 32.[address] [facility] LABORATORY MCHC 31.2 (L) 31.6 - 35.1 [facility] g/dL [facility] LABORATORY RDW-SD 47.2 39.0 - 49.[address] [facility] LABORATORY RDW-CV 13.1 12.0 - 15.5 % [facility] LABORATORY PLT 201 166 - 358 [facility] 10*3/L [facility] LABORATORY MPV 9.7 9.5 - 12.[address] [facility] LABORATORY NRBC/100 WBC 0.0 0.0 - 10.0 /100 [facility] WBCs [facility] LABORATORY NRBC x10^3 <0.01 10*3/L [facility] LABORATORY GRAN MAT (NEUT) % 78.6 % [facility] LABORATORY IMM GRAN % 0.50 % [facility] LABORATORY LYMPH % 13.1 % [facility] LABORATORY MONO % 5.5 % [facility] LABORATORY EOS % 2.0 % [facility] LABORATORY BASO % 0.3 % [facility] LABORATORY GRAN MAT x10^3(ANC) 5.18 1.88 - 7.09 [facility] 10*3/uL HOSPITAL LABORATORY IMM GRAN x10^3 0.03 0.00 - 0.06 [facility] 10*3/uL HOSPITAL LABORATORY LYMPH x10^3 0.86 (L) 1.32 - 3.29 [facility] 10*3/uL HOSPITAL LABORATORY MONO x10^3 0.36 0.33 - 0.92 [facility] 10*3/uL HOSPITAL LABORATORY EOS x10^3 0.13 0.03 - 0.39 [facility] 10*3/uL HOSPITAL LABORATORY BASO x10^3 <0.03 0.01 - 0.07 [facility] 10*3/uL [facility] LABORATORY Specimen Blood - LINE, VENOUS Performing Organization Address City/State/Zipcode Phone Number [facility] CLIA: [id number] [place] [address] ACUTE CARE VENOUS BLOOD GAS (02/01/2020 2:23 PM CDT) Pathologist Sig nature PH 7.30 (L) 7.32 - 7.42 [facility] LABORATORY PCO2 SANDHYA 46 41 - [address] [facility] LABORATORY PO2 SANDHYA 72 (HH) 25 - [address] [facility] LABORATORY HCO3 SANDHYA 22 (L) 24 - 28 mEq/L [facility] LABORATORY AC VBE(BEAKER) -4.2 mEq/L [facility] LABORATORY Specimen Blood - ARM, LEFT Performing Organization Address City/State/Zipcode Phone Number [facility] CLIA: [id number] [place] [address] LABORATORY [address] [facility] US ABDOMEN COMPLETE (02/01/2020 11:39 AM CDT) Specimen Impressions Performed At PACS/VR/DOSE No sonographic findings to explain patie nt's transaminitis. Status post cholecystectomy. Normal sonographic appearance of bilateral kidneys. No appreciable atrophy or cortical thinning. No hydronephrosis. Narrative Performed At RIGHT UPPER QUADRANT ABDOMINAL SONOGRAM PACS/VR/DOSE TECHNIQUE: Grayscale and limited color D oppler images of the right upper quadrant of the abdomen were obtained. INDICATION: Transaminitis and acute alvarez l failure. COMPARISON: 12/18/2019 FINDINGS: Limited exam due to patient deandra dy habitus and inability to cooperate during the exam. Liver measures 13.3 cm in craniocaudal dimension. No f ocal hepatic lesions identified to the extent visualized (exam limited by r ib shadowing). Main portal vein demonstrates normal hepatopedal flow. Main portal vein measures 0.8 cm in AP diameter at [place] hepatis. Gallbladder is not visualized (surgicall y absent). CBD measures 4 mm in AP diameter at [place] hepatis, nor mal. No discernible intrahepatic or extrahepatic biliary yung claudine dilatation. Right kidney measures 10.3 x 4.5 x 5.2 cm. Left kidney measures 11.2 x 4.9 x 4.6 cm. No hydronephrosis or nephrolit hiasis. Preservation of normal corticomedullary differentiation. No ana reciable atrophy or cortical thinning. Enlarged spleen measures 14.5 cm and cli nical dimension. Visualized portions of the pancreatic head appear unre markable. Majority of the pancreatic body, tail and uncinate p rocess is obscured by bowel gas and/or not well seen. Proximal abdominal aorta measures 2.4 cm in AP diameter, normal. No abnormal dilatation within the mid or di stal abdominal aorta. Results portions of the IVC appear unrem arkable. Procedure Note [facility], Radiant Results Inft User - 2019 12:03 PM CDT RIGHT UPPER QUADRANT ABDOMINAL SONOGRAM TECHNIQUE: Grayscale and limited color D oppler images of the right upper quadrant of the abdomen were obtained. INDICATION: Transaminitis and acute alvarez l failure. COMPARISON: 12/18/2019 FINDINGS: Limited exam due to patient deandra dy habitus and inability to cooperate during the exam. Liver measures 13.3 cm in craniocaudal d imension. No focal hepatic lesions identified to the extent visualized (exa m limited by rib shadowing). Main portal vein demonstrates normal hepatope theo flow. Main portal vein measures 0.8 cm in AP diameter at [place] hepatis. Gallbladder is not visualized (surgicall y absent). CBD measures 4 mm in AP diameter at port a hepatis, normal. No discernible intrahepatic or extrahepatic biliary yung claudine dilatation. Right kidney measures 10.3 x 4.5 x 5.2 c m. Left kidney measures 11.2 x 4.9 x 4.6 cm. No hydronephrosis or nephrolit hiasis. Preservation of normal corticomedullary differentiation. No ana reciable atrophy or cortical thinning. Enlarged spleen measures 14.5 cm and cli nical dimension. Visualized portions of the pancreatic he ad appear unremarkable. Majority of the pancreatic body, tail and uncinate p rocess is obscured by bowel gas and/or not well seen. Proximal abdominal aorta measures 2.4 cm in AP diameter, normal. No abnormal dilatation within the mid or di stal abdominal aorta. Results portions of the IVC appear unrem arkable. IMPRESSION No sonographic findings to explain patie nt's transaminitis. Status post cholecystectomy. Normal sonographic appearance of bilater al kidneys. No appreciable atrophy or cortical thinning. No hydronephrosis. Performing Organization Address City/State/Zipcode Phone Number PACS/VR/DOSE POCT GLUCOSE (AUTOMATED) (02/01/2020 7:46 AM CDT) Pathologist Sig nature POCT GLU 104 70 - 110 mg/dL [facility] LABORATORY Specimen Blood Performing Organization Address City/State/Zipcode Phone Number [facility] CLIA: [id number] [place] [address] LABORATORY [address] [facility] COMP. METABOLIC PANEL ([id number]) (02/01/2020 5:09 AM CDT) Pathologist Sig nature NA 139 135 - 145 [facility] mmol/L [facility] LABORATORY K 4.1 3.5 - 5.0 [facility] mmol/L [facility] LABORATORY CL 112 (H) 98 - 108 mmol/L [facility] LABORATORY CO2 TOTAL 20 (L) 23 - 31 mmol/L [facility] LABORATORY AGAP 7 2 - 16 [facility] LABORATORY BUN 16 7 - 23 mg/dL [facility] LABORATORY GLUCOSE 99 70 - 110 mg/dL [facility] LABORATORY CREATININE 0.85 0.50 - 1.04 [facility] mg/dL [facility] LABORATORY TOTAL BILI 1.3 (H) 0.1 - 1.1 mg/dL [facility] LABORATORY CALCIUM 8.6 8.6 - 10.6 [facility] mg/dL [facility] LABORATORY T PROTEIN 6.2 (L) 6.3 - 8.2 g/dL [facility] LABORATORY ALBUMIN 3.2 (L) 3.5 - 5.0 g/dL [facility] LABORATORY ALK PHOS 646 (H) 34 - 122 U/L [facility] LABORATORY ALTv 209 (H) 5 - 35 U/L [facility] LABORATORY AST(SGOT) 110 (H) 13 - 40 U/L [facility] LABORATORY eGFR Calculation 68.9 mL/min/1.73m2 [facility] ([facility] LABORATORY Croatian) eGFR Calculation 83.6 mL/min/1.73m2 [facility] () [facility] LABORATORY Specimen Blood - ARM, LEFT Narrative Performed At Association of Glomerular Filtration Rate (GFR) [facility] LABORATORY and Staging of Kidney Disease* + [...] abnormalities in imaging tests). Performing Organization Address [facility] Cent[facility]ode Phone Number [facility] CLIA: [id number] [place] [address] LAB[address] LIPASE (02/01/2020 5:09 AM CDT) Pathologist Sig nature LIPASE 353 (H) 0 - 220 U/L [facility] LABORATORY Specimen Blood - ARM, LEFT Performing Organization Address [facility] Phone Number [facility] CLIA: [id number] [place] [address] LABORATORY [address] LITHIUM (02/01/2020 5:09 AM CDT) Pathologist Sig nature [place] 1.0 0.6 - 1.2 mmol/L [facility] HOSPITA L LABORATORY Specimen Blood - ARM, LEFT Narrative Performed At Toxic Range: Greater than 1.2 mmol/L [facility] LABORATORY Performing Organization Address [facility] Phone Number [facility] CLIA: [id number] [place] [address] LABORATORY [address] [facility] CBC with Differential (02/01/2020 5:09 AM CDT) Pathologist Sig nature WBC 5.42 4.30 - 11.10 [facility] 10*3/L [facility] LABORATORY RBC 2.56 (L) 3.93 - 5.25 [facility] 10*6/L [facility] LABORATORY HGB 8.3 (L) 11.6 - 15.0 [facility] g/dL HOSPITAL LABORATORY HCT 26.1 (L) 35.7 - 45.2 % [facility] LABORATORY MCV 102.0 (H) 80.6 - 95.[address] [facility] LABORATORY MCH 32.4 25.9 - 32.[address] [facility] LABORATORY MCHC 31.8 31.6 - 35.1 [facility] g/dL [facility] LABORATORY RDW-SD 49.7 39.0 - 49.[address] [facility] LABORATORY RDW-CV 13.2 12.0 - 15.5 % [facility] LABORATORY PLT 162 (L) 166 - 358 [facility] 10*3/L [facility] LABORATORY MPV 9.7 9.5 - 12.[address] [facility] LABORATORY NRBC/100 WBC 0.0 0.0 - 10.0 /100 [facility] WBCs [facility] LABORATORY NRBC x10^3 <0.01 10*3/L [facility] LABORATORY GRAN MAT (NEUT) % 79.3 % [facility] LABORATORY IMM GRAN % 0.40 % [facility] LABORATORY LYMPH % 11.4 % [facility] LABORATORY MONO % 6.1 % [facility] LABORATORY EOS % 2.6 % [facility] LABORATORY BASO % 0.2 % [facility] LABORATORY GRAN MAT x10^3(ANC) 4.30 1.88 - 7.09 [facility] 10*3/uL [facility] LABORATORY IMM GRAN x10^3 <0.03 0.00 - 0.06 [facility] 10*3/uL [facility] LABORATORY LYMPH x10^3 0.62 (L) 1.32 - 3.29 [facility] 10*3/uL HOSPITAL LABORATORY MONO x10^3 0.33 0.33 - 0.92 [facility] 10*3/uL [facility] LABORATORY EOS x10^3 0.14 0.03 - 0.39 [facility] 10*3/uL [facility] LABORATORY BASO x10^3 <0.03 0.01 - 0.07 [facility] 10*3/uL [facility] LABORATORY Specimen Blood - ARM, LEFT Performing Organization Address City/State/Zipcode Phone Number [facility] CLIA: [id number] [place] [address] OSMOLALITY SERUM (01/31/2020 7:10 PM CDT) Pathologist Sig nature OSMOLALITY 293 278 - 305 mOsm/kg [facility] LABORATORY SERVICE S Specimen Blood - VENOUS Performing Organization Address City/[facility]/Zipcode Phone Number [facility] LABORATORY SERVICES CLIA: [id number] [place] [address] [place] [address] FOLATE (01/31/2020 7:10 PM CDT) FOLATE SER 15.7Comment: Biotin 3.0 - 20.0 [facility] LABORATORY has been reported ng/mL SERVICES to cause a positive bias, interpret results relative to patient's use of biotin. Specimen Blood - VENOUS Performing Organization Address City/[facility]/Zipcode Phone Number [facility] LABORATORY SERVICES CLIA: [id number] [place] [address] [place] [address] VITAMIN B12, LEVEL (01/31/2020 7:10 PM CDT) Pathologist Sig nature VIT B12 257 240 - 930 pg/mL [facility] LABORATORY SERVICES Specimen Blood - VENOUS Narrative Performed At Biotin has been reported to cause a positive bias, int erpret [facility] LABORAT[facility] SERVICES results relative to patient's use of biotin. Performing Organization Address City/[facility]/Zipcode Phone Number [facility] LABORATORY SERVICES CLIA: [id number] [place] [address] [place] [address] ABG+COOX+NA+K+GLU+CA2+ (01/31/2020 3:39 PM CDT) Pathologist Sig nature PH 7.23 (L) 7.35 - 7.45 [facility] LABORATORY PCO2 48 (H) 35 - [address] [facility] LABORATORY PO2 74 (L) 80 - [address] [facility] LABORATORY HCO3 20 (L) 22 - 26 mEq/L [facility] LABORATORY BE -7.6 (L) -3.0 - 3.0 mEq/L [facility] LAB[facility] THB 9.8 (L) 12.0 - 16.0 g/dL [facility] %O2HB 94.0 94.0 - 99.0 % [facility] LABORATORY %COHB ART 0.0 0.0 - 1.5 % [facility] LABORATORY %METHB ART 0.3 (L) 0.4 - 1.5 % [facility] LABORATORY VOL%O2 ART 13.0 (L) 15.0 - 23.0 % [facility] LABORATORY NA 137 135 - 145 mmol/L [facility] K+ 4.0 3.5 - 5.0 mmol/L [facility] AC CA IONZ 5.10 4.50 - 5.30 mg/dL [facility] LABORATORY GLUCOSE 100 70 - 110 mg/dL [facility] LABORATORY Specimen Blood - WRIST, LEFT Performing Organization Address City/[facility]/Zipcode Phone Number [facility] CLIA: [id number] [place] [address] GRAM POSITIVE BLOOD PATHOGENS DNA PROBE-AEROBIC (01/31/2020 1:21 PM CDT) Coagulase Negative Positive (A) Negative, See [facility] LABORATORY Staphylococcus Comment/Narra SERVICES tive Specimen Blood - VENOUS Narrative Performed At [facility] LABORATORY SERVICES Coagulase negative Staphylococcus (CoNS) detected by D NA probe. CoNS often contaminate blood cultures from sk in colonization during phlebotomy. Preferred management is to repeat blood cultures, and monitor off antibiotics. Contamination is suggested by culture growth after 4 8 hours, or growth in single culture (i.e., one of two s ets). True bacteremia is suggested by the fever, hypotensi on, and leukocytosis that are not explained by an alternat kourtney infection, or indwelling foreign devices that appear infected (catheters, lines, or prosthese s). Consider Infectious Diseases consultation if different iation of CoNS bacteremia from contamination is uncertain. If clinical context suggests true bacteremia, preferre d therapy is vancomycin. Please contact the Antimicrobial Stewardship Program w ith questions. Pager: [phone] Testing included eleven identification and three resis tance marker targets. Performing Organization Address City/State/Zipcode Phone Number [facility] LABORATORY SERVICES CLIA: [id number] [place] [address] [place] [address] BLOOD CULTURE WORKUP (01/31/2020 1:21 PM CDT) Blood Culture Coagulase negative [facility] LABORATORY Workup StaphylococcusComme SERVICES nt: Additional work-up performed only per request. Culture plate(s) will be saved until this date: - 02/08/2020 Gram stain Isolated from [facility] aerobic bottle Gram [facility] LABORATORY positive cocci Gram stain Comment: The [facility] LABORATORY previously reported SERVICES result Isolated from anaerobic bottle Gram positive cocci is no longer being reported. Specimen Blood - VENOUS Performing Organization Address City/[facility]/Zipcode Phone Number [facility] LABORATORY SERVICES CLIA: [id number] [place] [address] [place] [address] CLIA: [id number] [place], [place] [address] [phone] LABORATORY [address] ADC OR PERICO ONLY - RPR (01/31/2020 1:21 PM CDT) Pathologist Sig nature RPR (Qualitative) Nonreactive Nonreactive [facility] LABORATORY Specimen Blood - VENOUS Performing Organization Address City/[facility] Phone Number [facility] CLIA: [id number] [place], [place] [address] LABORATORY [address] [facility] IRON PANEL (01/31/2020 1:21 PM CDT) Pathologist Sig nature IRON 68Comment: Slight 50 - 160 ug/dL [facility] LABORATORY TIBC 271 250 - 410 ug/dL [facility] LABORATORY % FE SAT 25 20 - 50 % [facility] LABORATORY Specimen Blood - VENOUS Performing Organization Address City/[facility]/Zipcode Phone Number [facility] CLIA: [id number] [place] [address] LABORATORY [address] ACETAMINOPHEN (01/31/2020 1:21 PM CDT) Pathologist Sig nature ACETAMINOP <10.0 (L) 10.0 - 30.0 ug/mL [facility] LABORATORY Specimen Blood - VENOUS Narrative Performed At Toxic: Greater than 200 ug/mL @ 4 hour post [facility] LABORATORY ingestion or greater than 50 ug/mL @ 12 hour post ingestion Performing Organization Address City/[facility] Phone Number [facility] CLIA: [id number] [place] [address] LABORATORY [address] SALICYLATE (01/31/2020 1:21 PM CDT) Pathologist Sig nature SALICYLATE <10 mg/L [facility] BORATORY Specimen Blood - VENOUS Narrative Performed At Therapeutic Range: [facility] LABORATORY Analgesic and Antipyretic Use 20-100 mg/L Anti-Inflammatory Use 100-250 mg/L Toxic Range: Greater than 300 mg/L Performing Organization Address [facility] Phone Number [facility] CLIA: [id number] [place] [address] LABORATORY [address] LITHIUM (01/31/2020 1:21 PM CDT) Pathologist Sig nature [place] 1.4 (H) 0.6 - 1.2 mmol/L [facility] Specimen Blood - VENOUS Narrative Performed At Toxic Range: Greater than 1.2 mmol/L [facility] LABORATORY Performing Organization Address [facility] Phone Number [facility] CLIA: [id number] [place], [place] [address] LABORATORY [address] [facility] VALPROIC ACID, TOTAL (01/31/2020 1:21 PM CDT) Pathologist Sig nature VALPROIC A <10 (L) 50 - 100 ug/mL [facility] LABORATORY Specimen Blood - VENOUS Narrative Performed At Toxic Range: Greater than 100 [facility] LABORATORY ug/mL Performing Organization Address [facility] Phone Number [facility] CLIA: [id number] [place], [place] [id number] LABORATORY [address] BLOOD CULTURE SCREEN (01/31/2020 1:21 PM CDT) Blood Culture positive. See Blood Culture Workup for additional information. (AA) No growth [facility] Culture-Aerobic Comment: HOSPITAL Previous preliminary verifie d result was Culture In Progress on 01/31/2020 at 1701 CDT LABORATORY Previous preliminary verifie d result was No growth at 24 hours on 02/01/2020 at 1401 CDT Blood No organisms isolated No growth [facility] Culture-Anaerobic Comment: HOSPITAL Previous preliminary verifie d result was Culture In Progress on 01/31/2020 at 1701 CDT LABORATORY Previous preliminary verifie d result was No growth at 24 hours on 02/01/2020 at 1401 CDT Specimen Blood - VENOUS Performing Organization Address [facility]/Zipcode Phone Number [facility] CLIA: [id number] [place] [address] Abdomen 1 View (01/31/2020 12:09 PM CDT) Specimen Impressions Performed At PACS/VR/DOSE 1. Nonobstructive intestinal bowel gas p attern. RL: [id number] AFC: [id number] Electronically signed by Gatito Saul MD at 0 12:42 PM Narrative Performed At CLINICAL INFORMATION: Abdominal pain. Al tered state of awareness PACS/VR/DOSE Ordering Physician: KIRSTIN RON FINDINGS: Supine view of the abdomen was submitted on 3 separate images. Small amount of gas within the stomach. Bladder surgic ally absent. Gas and stool noted in the colon. No dilated loo ps of small bowel. Procedure Note [facility], Radiant Results Inft User - 2019 12:43 PM CDT CLINICAL INFORMATION: Abdominal pain. Altered state of awareness Ordering Physician: KIRSTIN RON FINDINGS: Supine view of the abdomen was submitted on 3 separate images. Small amount of gas within the stomach. Bladder surgically absent. Gas and stool noted in the colon. No dilated loo ps of small bowel. IMPRESSION 1. Nonobstructive intestinal bowel gas p attern. RL: [id number] AFC: [id number] Performing Organization Address City/[facility]/Zipcode Phone Number PACS/VR/DOSE Chest 1 View (01/31/2020 12:09 PM CDT) Specimen Impressions Performed At Impression: No acute cardiopulmonary dis ease. PACS/VR/DOSE RL: [id number] AFC: [id number] Electronically signed by Gatito Saul MD at 0 12:46 PM Narrative Performed At Chest, one view PACS/VR/DOSE History: AMS . Altered state of awaren ess Ordering Physician: KIRSTIN RON Findings: The lungs are clear without fo brandy pneumonic consolidation, pleural effusion, or pneumothorax. The heart size is normal. The mediastinal contours are normal. No pu lmonary edema. Several scattered calcified granulomas noted within both l ungs. Procedure Note [facility], Radiant Results Inft User - 2019 12:47 PM CDT Chest, one view History: AMS . Altered state of awarene ss Ordering Physician: KIRSTIN RON Findings: The lungs are clear without fo brandy pneumonic consolidation, pleural effusion, or pneumothorax. The heart size is normal. The mediastinal contours are normal. No pul monary edema. Several scattered calcified granulomas noted within both l ungs. IMPRESSION Impression: No acute cardiopulmonary dis ease. RL: [id number] AFC: [id number] Performing Organization Address City/State/Zipcode Phone Number PACS/VR/DOSE CT Head W/O Contrast (01/31/2020 11:58 AM CDT) Specimen Impressions Performed At Impression: PACS/VR/DOSE 1. No acute intracranial process. 2. Small right mastoid effusion. Narrative Performed At Exam: CT HEAD WO CONTRAST PACS/VR/DOSE Clinical History: Altered mental status (AMS), unclear cause Technique:Thin section CT brain with mul tiplanar reformats Comparison: CT brain dated 01/02/2019 Findings: Brainstem, cerebellum are within normal limits. Ventricles are normal. There are no extra-axial collections. There is no evid ence of intracranial hemorrhage. No focal mass, midline shift , mass effect is identified. Several hemispheres are within normal li mits. Aspect score: 10. Basal cisterns are normal. Bone windows demonstrate a normal appear ance of the skull base. Minimal fluid is noted in the right mastoid air cells. The paranasal sinuses are within normal limits. Included portions of the orbits are norm al. The cranium is within normal limits with out evidence for fracture. Procedure Note [facility], Radiant Results Inft User - 2019 12:06 PM CDT Exam: CT HEAD WO CONTRAST Clinical History: Altered mental status (AMS), unclear cause Technique:Thin section CT brain with mul tiplanar reformats Comparison: CT brain dated 01/02/2019 Findings: Brainstem, cerebellum are within normal limits. Ventricles are normal. There are no extra-axial collections. Th ere is no evidence of intracranial hemorrhage. No focal mass, midline shift , mass effect is identified. Several hemispheres are within normal li mits. Aspect score: 10. Basal cisterns are normal. Bone windows demonstrate a normal appear ance of the skull base. Minimal fluid is noted in the right mastoid air cells. The paranasal sinuses are within normal limits. Included portions of the orbits are norm al. The cranium is within normal limits with out evidence for fracture. IMPRESSION Impression: 1. No acute intracranial process. 2. Small right mastoid effusion. Performing Organization Address City/[facility] Phone Number PACS/VR/DOSE ADC / LCC - DRUG SCREEN TRIAGE (01/31/2020 11:13 AM CDT) BENZO U Presumptive Positive Negative [facility] () [facility] LABORATORY SLIM U Negative Negative [facility] LABORATORY AMPHET Negative Negative [facility] LABORATORY THC Negative Negative [facility] LABORATORY METHADONE Negative Negative [facility] LABORATORY Meth U Negative Negative [facility] LABORATORY OPIATES Negative Negative [facility] LABORATORY Cocaine Metabolite Negative Negative [facility] LABORATORY PROPOXY Negative Negative [facility] LABORATORY Tric U Presumptive Positive Negative [facility] ()Comment: HOSPITAL Confirmation of LABORATORY Presumptive Positive TCA result requires physician order and this will be sent to reference lab. PCP Negative Negative [facility] LABORATORY OXYCOD Negative Negative [facility] LABORATORY Specimen Urine - URINE, CATHETERIZED Narrative Performed At Urine Drug Cutoff Ranges [facility] LABORATORY Benzodiazepines: 150 ng/mL Barbiturates: 200 ng/mL Amphetamine: 500 ng/mL Cannabinoids: 50 ng/mL Methadone: 200 ng/mL Methamphetamine: 500 ng/mL Opiates: 100 ng/mL or 2000 ng/mL Cocaine: 150 ng/mL Propoxyphene: 300 ng/mL Tricyclics: 300 ng/mL Oxycodone: 100 ng/mL PCP: 25 ng/mL The results are to be used only for medical (i.e., treatment) purposes. Unconfirmed screening results must not be used for non-medical purposes (e.g., employment testing, legal testing). Performing Organization Address City/State/Zipcode Phone Number [facility] CLIA: [id number] [place] [address] Urine Culture (01/31/2020 11:13 AM CDT) Pathologist Sig nature URINE CULTURE No aerobic growth [facility] LABORATORY (< 1000 CFU/mL) SERVICES Specimen Urine - URINE, CATHETERIZED Performing Organization Address [facility] Phone Number [facility] LABORATORY SERVICES CLIA: [id number] [place], [place] [address] [address] [place] [address] Urinalysis (01/31/2020 11:13 AM CDT) Pathologist Sig nature APPEARANCE Hazy (A) Clear [facility] LABORATORY COLOR [place] (A) Yellow [facility] LABORATORY PH 5.0 4.8 - 8.0 [facility] LABORATORY SP GRAVITY 1.015 1.003 - 1.030 [facility] LABORATORY GLU U QUAL Normal Normal [facility] LABORATORY BLOOD Negative Negative [facility] LABORATORY KETONES Negative Negative [facility] LABORATORY PROTEIN 30 mg/dL (A) Negative [facility] LABORATORY UROBILIN 4.0 mg/dL (A) Normal [facility] LABORATORY BILIRUBIN Negative Negative [facility] LABORATORY NITRITE Negative Negative [facility] LABORATORY LEUK NICHOLE 25/uL (A) Negative [facility] LABORATORY RBC/HPF 3 0 - [address] [facility] LABORATORY WBC/HPF 9 (H) 0 - [address] [facility] LABORATORY BACTERIA Few (A) Negative [facility] LABORATORY MUCOUS Moderate (A) Negative LPF [facility] LABORATORY SQ EPITH [address] [facility] LABORATORY HYAL CAST 21 (H) <=[address] [facility] LABORATORY GRAN CASTS 7 (H) <=[address] [facility] LABORATORY Specimen Urine - URINE, CATHETERIZED Performing Organization Address [facility] Phone Number [facility] CLIA: [id number] [place] [address] LAB ONLY COVID INTERPRETATION (01/31/2020 11:00 AM CDT) COVID DMT Interpretation/Recommendatio ns\\nTests (PCR) for Active Infection by COVID-19 Virus: [facility] LABORATORY Interpretation SERVICES This patient has tested nega tive for the COVID-19 virus on two occasions. For approximately two-thirds of patients with a negative test result who were tested only once, the patient is truly negative and has not been infected wi th the COVID-19 virus. However, for those tested using a nasopharyngeal sample, each time the PCR test is performed there is approximately a [id number] chance the patient h ad been infected and the res ult of the test is a false negative . This occurs because the virus is predominantly in the lung and out of reach of the nasopharyngeal swab. Importantly, this patient mcallister s tested negative twice. Especially if there were minimal or no symptoms of the infection, this makes a false negative result less likely for this patient, and much more like ly that the patient has not been infected with the COV ID-19 virus. Tests for IgM and/or IgG Antibodies to COVID-19 Virus: A. A test for IgM antibody to the COVID-19 virus would be highly informative at this time. IgM antibodies to the COVID-19 virus identified in a high performing test, usually an MELONY or chemiluminesce nce based assay, should appe ar in most patients who are truly infected within approximately one week from the onset of symptoms, and in nearly all patients by 2 to 3 weeks after symptoms begin. If the I gM test is positive, even if the PCR tests for active infection were negative, it is highly probable that the patient has been infected with the virus at some point. B. A test for IgG antibodi es to the COVID-19 virus was not performed and would also be informative if the IgM antibody test is positive, when performed. The sample for the IgG antibody test should b e collected 2 or more weeks post onset of symptoms. The test for IgM and IgG antibodies can be performed using a single blood sample. It is the IgG antibodies that can confer long-term immunity to inf ectious agents. However, at this time, it is not known if the production of IgG antibodies indicates whether the patient is immune to future infections with the COVID-19 virus. It is also not known how long IgG antibodies to the C OVID-19 virus persist, and therefore the length of immunity to future COVID-19 infections. C. Although it is uncommon , some patients cannot ever mount an antibody response to infectious agents, such as COVID-19. If there are persistently negative results for IgM and IgG antibodies, this may be the explanation. COVID Results SARS-CoV-2 Rapid ID NOW (no units) [facility] LABORATORY Date Value SERVICES 01/31/2020 Not Detected 08/21/2019 Not Detected Specimen Swab - NASOPHARYNGEAL SWAB Performing Organization Address City/[facility]/Zipcode Phone Number [facility] LABORATORY SERVICES CLIA: [id number] [place] [address] [place] [address] COVID-19 (ID NOW RAPID TESTING) (01/31/2020 11:00 AM CDT) SARS-CoV-2 Rapid ID Not Detected Not Detected [facility] LABORATORY Specimen Swab - NASOPHARYNGEAL SWAB Narrative Performed At MO NOW COVID-19 Assay is an isothermal nucleic [facility] LABORATORY acid amplification test intended for the qualitative detection of nucleic acid from SARS-CoV-2 viral RNA in nasopharyngeal (SLAB PULLER) specimens. It is used under Emergency Use Authorization (EUA) by FDA. The limit of detection (LOD) of the assay is 125 Genome Equivalents/mL. A positive result is indicative of the presence of SARS-CoV-2 RNA. Clinical correlation with patient history and other diagnostic information is necessary to determine patient infection status. A negative (Not Detected) result does not preclude SARS-CoV-2 infection. In patients with clinical symptoms and other tests that are consistent with SARS-CoV-2 infection, negative results should be treated as presumptive negative and a new specimen should be tested with alternative PCR molecular test. Invalid: Please collect a new specimen for repeat patient testing if clinically indicated. Performing Organization Address [facility]ode Phone Number [facility] CLIA: [id number] [place] [address] DIFF CONSULT INTERPRETATION (01/31/2020 10:58 AM CDT) Specimen Blood - VENOUS Narrative Performed At MATURE LEUKOCYTES WITH REACTIVE LYMPHOCYTES, REACTIVE [facility] LABORATORY SERVICES MONOCYTES AND OCCASIONAL TOXIC NEUTROPHILS. RARE HYPERSEGMENTED NEUTROPHILS. MACROCYTIC ANEMIA WITH POLYCHROMASIA AND POIKILOCYTOSI S INCLUDING RICK CELLS AND TARGET CELLS. THESE CHANGES A RE SUGGESTIVE OF EARLY VITAMIN B12 DEFICIEN CY ANEMIA. AMPLE PLATELETS. Performing Organization Address City/[facility]/Zipcode Phone Number [facility] LABORATORY SERVICES CLIA: [id number] [place] [address] [place] [address] RETICULOCYTES AUTOMATED (01/31/2020 10:58 AM CDT) Pathologist Sig [facility] RETIC Count 2.17 (H) 0.51 - 1.90 % [facility] Automated HOSPITAL LABORATORY RETIC Absolute Count 0.0677 0.0230 - 0.0950 [facility] 10*6/L HOSPITAL LABORATORY IRF % 9.20 2.10 - 12.60 % [facility] LABORATORY RETIC-HE 35.1 28.1 - 35.[address] [facility] LABORATORY Specimen Blood - VENOUS Performing Organization Address [facility] Phone Number [facility] CLIA: [id number] [place] [address] THYROID STIMULATING HORMONE (01/31/2020 10:58 AM CDT) [facility] TSH 1.42Comment: Biotin 0.45 - 4.70 [facility] has been reported [facility] LABORATORY to cause a negative bias, interpret results relative to patient's use of biotin. Specimen Blood - VENOUS Performing Organization Address [facility] Phone Number [facility] CLIA: [id number] [place] [address] FERRITIN SERUM (01/31/2020 10:58 AM CDT) Pathologist Sig [facility] FERRITIN 234.0 11.0 - 264.0 ng/mL [facility] Specimen Blood - VENOUS Narrative Performed At Biotin has been reported to cause a negative [facility] LABORATORY bias, interpret results relative to patient's use of biotin. Performing Organization Address [facility]/Zipcode Phone Number [facility] CLIA: [id number] [place] [address] ETHANOL (01/31/2020 10:58 AM CDT) Pathologist Sig nature ALCOHOL <10 mg/dL [facility] BORATORY Specimen Blood - VENOUS Narrative Performed At <[address] [facility] LABORATORY 50-100 Toxic >100 Depression of [employer] >400 Fatalities Reported Performing Organization Address [facility] Phone Number [facility] CLIA: [id number] [place], [place] [address] LABORATORY [address] CREATINE KINASE (01/31/2020 10:58 AM CDT) Pathologist Sig nature CK 46Comment: Slight 33 - 194 U/L [facility] LABORATORY Specimen Blood - VENOUS Performing Organization Address [facility] Phone Number [facility] CLIA: [id number] [place] [address] AMMONIA, PLASMA (01/31/2020 10:58 AM CDT) Pathologist Sig nature AMMONIA 32Comment: Slight 9 - 33 umol/L [facility] LABORATORY Specimen Blood - VENOUS Performing Organization Address [facility] Phone Number [facility] CLIA: [id number] [place], [place] [id number] LABORATORY [address] BLOOD CULTURE SCREEN (01/31/2020 10:58 AM CDT) Blood No organisms isolated No growth [facility] Culture-Aerobic Comment: HOSPITAL Previous preliminary verifie d result was Culture In Progress on 01/31/2020 at 1501 CDT LABORATORY Previous preliminary verifie d result was No growth at 24 hours on 02/01/2020 at 1201 CDT Previous preliminary verifie d result was No growth at 48 hours on 02/02/2020 at 1201 CDT Previous preliminary verifie d result was No growth at 72 hours on 02/03/2020 at 1201 CDT Blood No organisms isolated No growth [facility] Culture-Anaerobic Comment: HOSPITAL Previous preliminary verifie d result was Culture In Progress on 01/31/2020 at 1501 CDT LABORATORY Previous preliminary verifie d result was No growth at 24 hours on 02/01/2020 at 1201 CDT Previous preliminary verifie d result was No growth at 48 hours on 02/02/2020 at 1201 CDT Previous preliminary verifie d result was No growth at 72 hours on 02/03/2020 at 1201 CDT Specimen Blood - VENOUS Performing Organization Address [facility] Phone Number [facility] CLIA: [id number] [place] [address] N-TERMINAL PRO-BNP (01/31/2020 10:58 AM CDT) Pathologist Sig nature NT-proBNP 283 (H) <=125 pg/mL [facility] LABORATORY Specimen Blood - VENOUS Narrative Performed At Biotin has been reported to cause a negative [facility] LABORATORY bias, interpret results relative to patient's use of biotin. Performing Organization Address [facility] Phone Number [facility] CLIA: [id number] [place] [address] Troponin I (01/31/2020 10:58 AM CDT) Pathologist Sig [facility] TROPONIN I <0.012 <=0.034 ng/mL [facility] LABORATORY Specimen Blood - VENOUS Narrative Performed At Equal or Less than 0.034 ng/ml---Normal [facility] LABORATORY Note: Cardiac troponin begins to rise [...] patient's use of biotin. Performing Organization Address [facility] Cent[facility]ode Phone Number [facility] CLIA: [id number] [place] [address] Lipase Serum (01/31/2020 10:58 AM CDT) Pathologist Sig [employer] LIPASE 410 (H) 0 - 220 U/L [facility] LABORATORY Specimen Blood - VENOUS Performing Organization Address [facility] Phone Number [facility] CLIA: [id number] [place] [address] Hepatic Function Panel (ALB, T.PRO, BILI T, BU/BC, ALT, AST, ALK PHOS) (01/31/2020 10:58 AM CDT) Pathologist Sig nature TOTAL BILI 1.5 (H) 0.1 - 1.1 mg/dL [facility] LABORATORY BILI UNCON 0.4 0.1 - 1.1 mg/dL [facility] LABORATORY BILI CONJ 0.0 0.0 - 0.3 mg/dL [facility] LABORATORY T PROTEIN 8.0 6.3 - 8.2 g/dL [facility] LABORATORY ALBUMIN 4.0 3.5 - 5.0 g/dL [facility] LABORATORY ALK PHOS 714 (H) 34 - 122 U/L [facility] LABORATORY ALTv 352 (H) 5 - 35 U/L [facility] LABORATORY AST(SGOT) 256 (H) 13 - 40 U/L [facility] LABORATORY Specimen Blood - VENOUS Performing Organization Address City/State/Zipcode Phone Number [facility] CLIA: [id number] [place] [address] LABORATORY [address] Basic Metabolic Panel (NA, K, CL, CO2, GLUCOSE, BUN, CREATININE, CA) (01/31/2020 10:58 AM CDT) NA 134 (L) 135 - 145 [facility] mmol/L [facility] K 4.9 3.5 - 5.0 [facility] mmol/L [facility] CL 107 98 - 108 mmol/L [facility] CO2 TOTAL 19 (L) 23 - 31 mmol/L [facility] AGAP 8 2 - 16 [facility] BUN 30 (H) 7 - 23 mg/dL [facility] GLUCOSE 106 70 - 110 mg/dL [facility] CREATININE 2.21 (H) 0.50 - 1.04 [facility] mg/dL [facility] CALCIUM 9.5 8.6 - 10.6 [facility] mg/dL [facility] eGFR Calculation 22.9 mL/min/1.73m2 [facility] (Non-[facility] LABORATORY Croatian) eGFR Calculation 27.7 mL/min/1.73m2 [facility] LABORATORY Specimen Blood - VENOUS Narrative Performed At Association of Glomerular Filtration Rate (GFR) [facility] and Staging of Kidney Disease* [...] tests). Performing Organization Address City/State/Zipcode Phone Number [facility] CLIA: [id number] [place] [address] CBC with Differential (01/31/2020 10:58 AM CDT) [facility] WBC 7.73 4.30 - 11.10 [facility] 10*3/L [facility] RBC 3.11 (L) 3.93 - 5.25 [facility] 10*6/L [facility] HGB 9.8 (L) 11.6 - 15.0 [facility] g/dL [facility] HCT 31.7 (L) 35.7 - 45.2 % [facility] MCV 101.9 (H) 80.6 - 95.[address] [facility] MCH 31.5 25.9 - 32.[address] [facility] MCHC 30.9 (L) 31.6 - 35.1 [facility] g/dL [facility] RDW-SD 51.4 (H) 39.0 - 49.[address] [facility] RDW-CV 13.7 12.0 - 15.5 % [facility] PLT 217 166 - 358 [facility] 10*3/L HOSPITAL [facility] MPV 10.3 9.5 - 12.[address] [facility] NRBC/100 WBC 0.0 0.0 - 10.0 /100 [facility] WBCs [facility] NRBC x10^3 <0.01 10*3/L [facility] GRAN MAT (NEUT) % 77.1 % [facility] IMM GRAN % 0.40 % [facility] LYMPH % 12.2 % [facility] MONO % 5.7 % [facility] EOS % 4.3 % [facility] BASO % 0.3 % [facility] GRAN MAT x10^3(ANC) 5.97 1.88 - 7.09 [facility] 10*3/uL [facility] IMM GRAN x10^3 0.03 0.00 - 0.06 [facility] 10*3/uL [facility] LYMPH x10^3 0.94 (L) 1.32 - 3.29 [facility] 10*3/uL HOSPITAL LAB[facility] MONO x10^3 0.44 0.33 - 0.92 [facility] 10*3/uL [facility]ITAL [facility] EOS x10^3 0.33 0.03 - 0.39 [facility] 10*3/uL [facility]ITAL [facility] BASO x10^3 <0.03 0.01 - 0.07 [facility] 103/uL [facility] Specimen Blood - VENOUS Performing Organization Address City/[facility]/Zipcode Phone Number [facility] CLIA: [id number] [place] [address] Lactic Acid Whole Blood (01/31/2020 10:57 AM CDT) [facility] LACTIC ACID 1.03 0.30 - 2.60 mmol/L [facility] Specimen Blood - VENOUS Performing Organization Address City/[facility]/Zipcode Phone Number [facility] CLIA: [id number] [place] [address] documented in this encounter Visit Diagnoses Diagnosis Toxic metabolic encephalopathy - Primary Reserved for inherently not codable conc epts WITHOUT codable children Altered mental status, unspecified alter ed mental status type Acute kidney injury Acute kidney failure, unspecified Obesity (BMI 30-39.9) Obesity, unspecified Biliary disease Unspecified disorder of biliary tract Transaminitis Nonspecific elevation of levels of trans aminase or lactic acid dehydrogenase (LDH) Chronic pancreatitis, unspecified pancre atitis type Metabolic acidosis Acidosis Elevated liver enzymes Nonspecific elevation of levels of trans aminase or lactic acid dehydrogenase (LDH) Acute cystitis without hematuria Acute cystitis Uncontrolled hypertension Unspecified essential hypertension Somnolence Other alteration of consciousness 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 Essential hypertension Unspecified essential hypertension Alcohol use Other problems related to lifestyle documented in this encounter Administered Medications Medication Order MAR Action Action Date Dose Rate Site acetaminophen (TYLENOL) tablet Given 02/07/2020 8:39 AM CDT 650 mg 650 mg 650 mg, Oral, Q8HPRN, Starting Sat02/03/20 at 2058, Until Discontinued, Routine, Pain (scale 1-3) amLODIPine (NORVASC) tablet 10 mg Given 02/08/2020 10:23 AM CDT 10 mg 10 mg, Oral, DAILY, First dose on Sat02/02/20 at 1730, Until Discontinued, Routine Given 02/07/2020 8:35 AM CDT 10 mg Given 02/06/2020 8:52 AM CDT 10 mg cyanocobalamin (VITAMIN B12) Given 02/08/2020 10:23 AM CDT 1,000 mcg Abdomen-SC injection 1,000 mcg 1,000 mcg, Subcutaneous, Q24H, First dose (after last modification) on 02/06/20 at 0915, Until Discontinued, Routine Given 02/07/2020 8:39 AM CDT 1,000 mcg Abdo men-SC Given 02/06/2020 9:45 AM CDT 1,000 mcg Left Arm divalproex (DEPAKOTE) EC tablet 500 mg Given 02/08/2020 10:23 AM CDT 500 mg 500 mg, Oral, DAILY, First dose on Lilian 02/04/20 at 0900, Until Discontinued, Routine Given 02/07/2020 8:35 AM CDT 500 mg Given 02/06/2020 8:52 AM CDT 500 mg enoxaparin (LOVENOX) injection 40 mg Given 02/08/2020 10:15 AM CDT 40 mg Abdo men-SC 40 mg, Subcutaneous, DAILY, First dose on Lilian 02/04/20 at 0900, Until Discontinued, Routine Given 02/07/2020 8:39 AM CDT 40 mg Abdo men-SC Given 02/06/2020 8:52 AM CDT 40 mg Abdo men-SC hydralAZINE (APRESOLINE) injection 10 mg Given 02/02/2020 5:07 PM CDT 10 mg 10 mg, Slow IV Push, Q4HPRN, Starting 02/01/20 at 1545, Until Discontinued, STAT, SBP > 180, DBP > 120, Indication: Hypertensive Emergency Given 02/02/2020 11:18 AM CDT 10 mg Given 02/02/2020 5:30 AM CDT 10 mg hydrALAZINE (APRESOLINE) tablet 50 mg Given 02/08/2020 2:53 PM CDT 50 mg 50 mg, Oral, Q8H, First dose (after last modification) on 02/06/20 at 1400, Until Discontinued, Routine Given 02/08/2020 6:01 AM CDT 50 mg Given 02/07/2020 8:47 PM CDT 50 mg labetaloL (NORMODYNE) injection 10 mg Given 02/06/2020 8:51 AM CDT 10 mg 10 mg, Slow IV Push, Q4HPRN, Starting 02/02/20 at 1718, Until Discontinued, Routine, sbp > 180 or dbp > 110. hold if HR < 60 Given 02/06/2020 3:32 AM CDT 10 mg Given 02/05/2020 4:19 PM CDT 10 mg lactulose (CEPHULAC) solution 15 mL Given 02/07/2020 8:48 PM CDT 15 mL 15 mL, Oral, BID, First dose (after last modification) on Lilian 02/04/20 at 0800, Until Discontinued, Routine Given 02/07/2020 8:35 AM CDT 15 mL Given 02/06/2020 7:20 PM CDT 15 mL [id number] (CREON) Given 02/08/2020 10:14 AM CDT 3 capsules 12,000-38,000 -60,000 unit capsule 3 capsule 3 capsule, Oral, TID MEALS, First dose on Sat02/05/20 at 0900, Until Discontinued, Routine Given 02/07/2020 5:46 PM CDT 3 capsules Given 02/07/2020 1:19 PM CDT 3 capsules losartan (COZAAR) tablet 100 mg Given 02/08/2020 10:23 AM CDT 100 mg 100 mg, Oral, DAILY, First dose on Sat02/02/20 at 1415, Until Discontinued, Routine Given 02/07/2020 8:35 AM CDT 100 mg Given 02/06/2020 8:52 AM CDT 100 mg magnesium oxide (MAG-OX 400) tablet 400 mg Given 02/08/2020 10:23 AM CDT 400 mg 400 mg, Oral, DAILY, First dose on Sat02/03/20 at 1130, Until Discontinued, Routine Given 02/07/2020 8:35 AM CDT 400 mg Given 02/06/2020 8:52 AM CDT 400 mg ondansetron (ZOFRAN) tablet 4 mg Given 02/08/2020 10:32 AM CDT 4 mg 4 mg, Oral, Q6HPRN, Starting Sat02/04/20 at 1625, Until Discontinued, Routine, Nausea and Vomiting (N/V) Given 02/07/2020 5:46 PM CDT 4 mg pantoprazole (PROTONIX) EC tablet 40 mg Given 02/08/2020 8:01 AM CDT 40 mg 40 mg, Oral, BID, First dose on Sat02/04/20 at 0800, Until Discontinued, Routine Given 02/07/2020 8:47 PM CDT 40 mg Given 02/07/2020 8:35 AM CDT 40 mg sennosides (SENOKOT) tablet 8.6 mg Given 02/08/2020 10:23 AM CDT 8.6 mg 8.6 mg, Oral, DAILY, First dose on Sat02/03/20 at 1130, Until Discontinued, Routine Given 02/07/2020 8:35 AM CDT 8.6 mg Given 02/06/2020 8:52 AM CDT 8.6 mg traMADoL (ULTRAM) tablet 50 mg Given 02/08/2020 10:32 AM CDT 50 mg 50 mg, Oral, Q8HPRN, Starting Sat02/03/20 at 2222, Until Discontinued, Routine, Pain (scale 4-6) Given 02/07/2020 5:46 PM CDT 50 mg Medication Order MAR Action Action Date Dose Rate Site cloNIDine (CATAPRES) tablet 0.1 Given 02/02/2020 12:21 AM CDT 0. 1 mg mg 0.1 mg, Oral, ONCE, 1 dose, Sat02/02/20 at 0100, Routine cyanocobalamin (VITAMIN B12) Given 02/05/2020 11:25 AM CDT 1,000 mcg Left Arm injection 1,000 mcg 1,000 mcg, Subcutaneous, Q24H, First dose on Sat02/01/20 at 1030, Until Discontinued, Routine Given 02/04/2020 8:36 AM CDT 1,000 mcg Left Upper Arm-SC Given 02/03/2020 9:07 AM CDT 1,000 mcg Left Upper Arm-SC D5W 0.45% NaCl (1/2NS) 1 L + KCL 20 mEq New Bag 02/02/2020 4:16 PM CDT 50 mL/hr IV Infusion, at 50 mL/hr, CONTINUOUS, Starting Sat02/02/20 at 1515, Until Sat02/03/20 at 1124, Routine D5W 0.45% NaCl (1/2NS) IV New Bag 02/02/2020 3:13 AM CDT 1,000 mL 150 mL/hr infusion 1,000 mL at 150 mL/hr, 1,000 mL, IV Infusion, CONTINUOUS, Starting Sat02/01/20 at 1915, Until Sat02/02/20 at 1402, Routine New Bag 02/01/2020 7:18 PM CDT 1,000 mL 150 mL/hr diltiazem (CARDIZEM IV) injection 5 mg Given 02/02/2020 6:54 AM CDT 5 mg 5 mg, Slow IV Push, PRN, 2 doses, Starting Sat02/02/20 at 0647, Until Sat02/02/20 at 1414, Routine, FOR SBP > 160, DBP > 110. Hold for SBP < 160, DBP < 60, HR < 60, food service team member approving Restricted medication: MAGDALENEGERMAIN POEMariann docusate (COLACE) capsule 100 mg Given 02/03/2020 12:33 PM CDT 100 mg 100 mg, Oral, DAILY, First dose on Sat02/03/20 at 1130, Until Discontinued, Routine enoxaparin (LOVENOX) injection 30 mg Given 02/03/2020 9:07 AM CDT 30 mg Abdo men-SC 30 mg, Subcutaneous, DAILY, First dose on Sat02/01/20 at 0900, Until Discontinued, Routine Given 02/02/2020 9:30 AM CDT 30 mg Abdo men-SC Given 02/01/2020 9:59 AM CDT 30 mg Abdo men-SC hydrALAZINE (APRESOLINE) tablet 10 mg Given 02/06/2020 4:16 AM CDT 10 mg 10 mg, Oral, Q8H ABX, First dose (after last modification) on Sat02/05/20 at 1245, Until Discontinued, Routine Given 02/05/2020 7:40 PM CDT 10 mg Given 02/05/2020 12:56 PM CDT 10 mg lactated ringers IV infusion New Bag 01/31/2020 7:04 PM CDT 1,000 mL 125 mL/hr 1,000 mL at 125 mL/hr, 1,000 mL, IV Infusion, CONTINUOUS, Starting Points 01/31/20 at 1730, Until Sat01/31/20 at 2129, Routine lactated ringers IV infusion New Bag 02/07/2020 5:46 PM CDT 1,000 mL 100 mL/hr 1,000 mL at 100 mL/hr, 1,000 mL, IV Infusion, CONTINUOUS, Starting [facility] 02/03/20 at 2115, Until Points 02/07/20 at 1820, Routine New Bag 02/06/2020 9:37 PM CDT 1,000 mL 100 mL/hr New Bag 02/06/2020 4:38 PM CDT 1,000 mL 100 mL/hr lactulose (CEPHULAC) solution 15 mL Given 02/03/2020 12:31 PM CDT 15 mL 15 mL, Oral, QID, First dose on Sat02/02/20 at 2230, Until Discontinued, Routine Given 02/03/2020 9:07 AM CDT 15 mL Given 02/02/2020 10:53 PM CDT 15 mL [id number] (PANCREAZE) Given 02/03/2020 12:31 PM CD T 1 capsule 16,800-56,800- 98,400 unit capsule 1 capsule 1 capsule, Oral, TID MEALS, First dose on Sat02/02/20 at 1415, Until Discontinued Given 02/03/2020 9:08 AM CDT 1 capsule Given 02/02/2020 4:15 PM CDT 1 capsule LORazepam (ATIVAN) injection 1 mg Given 02/05/2020 9:13 PM CDT 1 mg 1 mg, Slow IV Push, ONCE, 1 dose, Sat02/05/20 at 1200, Routine LORazepam (ATIVAN) injection 1 mg Given 02/08/2020 8:01 AM CDT 1 mg 1 mg, Slow IV Push, ONCE, 1 dose, 02/08/20 at 0845, Routine LORazepam (ATIVAN) tablet 1 mg Given 02/04/2020 6:16 PM CDT 1 mg 1 mg, Oral, ONCE, 1 dose, Lilian 02/04/20 at 0930, Routine NaCl 0.45% (1/2NS) IV infusion New Bag 02/01/2020 11:04 AM CDT 1,000 mL 100 mL/hr 1,000 mL at 100 mL/hr, 1,000 mL, IV Infusion, CONTINUOUS, Starting 02/01/20 at 1030, Until Sat02/01/20 at 1238, Routine NaCl 0.45% (1/2NS) IV infusion Rate Change 02/01/2020 3:18 PM CDT 150 mL/hr 1,000 mL at 150 mL/hr, 1,000 mL, IV Infusion, ONCE, 1 dose, 02/01/20 at 1345, Routine NaCl 0.9% (NS) bolus infusion New Bag 01/31/2020 11:04 AM CDT 2,730 mL 999 mL/hr 2,730 mL at 999 mL/hr, 2,730 mL (30 mL/kg 91 kg), IV Infusion, ONCE, 1 dose, Points 01/31/20 at 1045, LOUIS NaCl 0.9% (NS) IV infusion 2,000 New Bag 01/31/2020 10:17 PM C DT 2,000 mL 125 mL/hr mL at 125 mL/hr, IV Infusion, ONCE, 1 dose, 01/31/20 at 2230, Routine ondansetron (ZOFRAN (PF)) injection 4 mg Given 02/04/2020 10:20 AM CDT 4 mg 4 mg, Slow IV Push, Q8HPRN, Starting Lilian 02/04/20 at 1015, Until Lilian 02/04/20 at 1626, Routine, Nausea and Vomiting (N/V) ondansetron (ZOFRAN) tablet 4 mg Given 02/04/2020 8:36 AM CDT 4 mg 4 mg, Oral, Q8HPRN, Starting 02/03/20 at 2052, Until Lilian 02/04/20 at 1619, Routine, Nausea and Vomiting (N/V) ondansetron (ZOFRAN) tablet 4 mg Given 02/04/2020 5:42 PM CDT 4 mg 4 mg, Oral, ONCE, 1 dose, Lilian 02/04/20 at 1730, Routine thiamine (VITAMIN B1) 100 mg in NaCl 0.9% Given 02/01/2020 9:59 AM CDT 100 mg (NS) piggyback IV Piggyback, DAILY, 2 doses, First dose on 01/31/20 at 1730, Last dose on 02/01/20 at 0900, 50 mL Given 01/31/2020 7:04 PM CDT 100 mg vancomycin 1250 mg in NS 250 mL RTU IV Given 02/01/2020 7:18 PM CDT 1,250 mg Piggyback 1,250 mg 1,250 mg (rounded from 1,245 mg = 15 mg/kg 83 kg), IV Piggyback, Q24H ABX, First dose on 02/01/20 at 1915, Until Discontinued, Reason for Anti-Infective: Empiric Therapy for Suspected Infection, Empiric Therapy Site: Blood, Duration of therapy: 72 hours documented in this encounter Additional Health Concerns Infection Onset Date Last Indicated Resolved Time COVID-19 Rule Out 01/31/2020 01/31/2020 01/31/2020 11: 39 AM CDT documented as of this encounter Insurance Payer Benefit Plan / Subscriber ID Effective Phone Address T e Group Dates CIGNA CIGNA II [id number] 2018-Prese HMO /PPO/POS nt MEDICARE MEDICARE PART [id number] 2015-Prese [phone] [address] [place] X Medicare A & B nt [id number] [place] [id number] documented as of this encounter Advance Directives Name Relationship Healthcare Agent Communication Relationship Puneet Aleman Spouse Health Care Agent [email or web address]
--- NOTE | 2020-03-23 21:23 | ER ---
Nurse's Notes [facility] Name: Yessenia Aleman Age: 59 yrs Sex: Female : 1960 Arrival Date: 03/23/2020 Time: 16:34 Bed 5 Private MD: Diagnosis: Unspecified abdominal pain;Viral syndrome Presentation: 03/23 17:13 Chief complaint: Patient states: mid abd pain radiating to back, diarrhea and vomiting iw today. Coronavirus screen: nausea. Ebola Screen: Patient negative for fever greater than or equal to 101.5 degrees Fahrenheit, and additional compatible Ebola Virus Disease symptoms Patient denies exposure to infectious person. Patient denies travel to an Ebola-affected area in the 21 days before illness onset. No symptoms or risks identified at this time. Initial Sepsis Screen: Does the patient meet any 2 criteria? No. Patient's initial sepsis screen is negative. Does the patient have a suspected source of infection? No. Patient's initial sepsis screen is negative. Risk Assessment: Do you want to hurt yourself or someone else? Patient reports no desire to harm self or others. Onset of symptoms was March 23, 2020. 17:13 Method Of Arrival: Ambulatory iw 17:13 Acuity: HOLLI 3 iw Historical: - Allergies: 17:15 Codeine; iw - PMHx: 17:15 Anxiety; Arthritis; Cirrhosis; biliary disease; CHF; Chronic Pancreatitis; iw Hypertension; Pneumonia; - PSHx: 17:15 Cholecystectomy; Bile duct stent; Appendectomy; iw - Immunization history:: Adult Immunizations not up to date. - Social history:: Smoking status: Patient denies any tobacco usage or history of. - Family history:: not pertinent. - Hospitalizations: : No recent hospitalization is reported. Screenin:09 Abuse screen: Denies threats or abuse. Denies injuries from another. Nutritional rv screening: No deficits noted. Tuberculosis screening: No symptoms or risk factors identified. Fall Risk None identified. Assessment: 19:09 Reassessment: Patient appears in no apparent distress at this time. Patient and/or iw family updated on plan of care and expected duration. Pain level reassessed. Patient is alert, oriented x 3, equal unlabored respirations, skin warm/dry/pink. 20:08 General: Appears uncomfortable, Behavior is calm, cooperative. Pain: Complains of pain rv in abdomen. Neuro: Level of Consciousness is awake, alert, obeys commands, Oriented to person, place, time, situation. Cardiovascular: Patient's skin is warm and dry. Respiratory: Airway is patent Respiratory effort is even, unlabored, Breath sounds are clear bilaterally. GI: Bowel sounds present X 4 quads. Abd is soft and non tender X 4 quads. Vital Signs: 17:13 BP 136 / 91; Pulse 95; Resp 16; Temp 97.5; Pulse Ox 98% on R/A; Weight 77.11 kg; Height iw 5 ft. 0 in. (152.40 cm); Pain 9/10; 19:09 BP 127 / 100; Pulse 96; Resp 16; Temp 98.1; Pulse Ox 98% on R/A; Pain 9/10; iw 20:00 BP 125 / 73; Pulse 89; Resp 17; Pulse Ox 99% on R/A; rv 21:00 BP 127 / 66; Pulse 91; Resp 16; Pulse Ox 98% on R/A; rv 21:30 BP 131 / 76; Pulse 88; Resp 18; Temp 98; Pulse Ox 99% on R/A; rv 17:13 Body Mass Index 33.20 (77.11 kg, 152.40 cm) iw ED Course: 16:34 Patient arrived in ED. ds1 17:14 Triage completed. iw 19:17 Meek Fitzpatrick MD is Attending Physician. rn 19:50 Inserted saline lock: 20 gauge in right antecubital area, using aseptic technique. rv Blood collected. 19:50 Initial lab(s) drawn, by me, sent to lab. rv 20:02 Darshan Chaparro, LUCIUS is Primary Nurse. rv 20:09 Patient has correct armband on for positive identification. Pulse ox on. NIBP on. rv 20:09 Arm band placed on right wrist. Patient placed in the treatment room, on a stretcher, rv Patient notified of wait time. 20:23 CT Abd/Pelvis - IV Contrast Only In Process Unspecified. EDMS 20:39 COVID swab sent to lab. jp3 21:52 No provider procedures requiring assistance completed. IV discontinued, intact, rv bleeding controlled, No redness/swelling at site. Pressure dressing applied. Administered Medications: 20:00 Drug: Demerol 50 mg {Note: rass 0.} Route: IVP; Site: right antecubital; rv 21:51 Follow up: Response: No adverse reaction; RASS: Alert and Calm (0) rv 20:00 Drug: NS 0.9% 500 ml Route: IV; Rate: bolus; Site: right antecubital; rv 21:51 Follow up: IV Status: Completed infusion; IV Intake: 500ml rv 20:00 Drug: Zofran (Ondansetron) 4 mg Route: IVP; Site: right antecubital; rv 21:50 Follow up: Response: No adverse reaction rv 21:49 Drug: Pepcid 20 mg Route: IVP; Site: right antecubital; rv 21:50 Follow up: Response: Medication administered at discharge. rv 21:49 Drug: GI Cocktail without - (Maalox Suspension 30 ml, Lidocaine Liquid 2 % 15 rv ml) Route: PO; 21:50 Follow up: Response: Medication administered at discharge. rv 21:49 Drug: Demerol 50 mg {Note: rass 0.} Route: IVP; Site: left antecubital; rv 21:50 Follow up: Response: Medication administered at discharge. rv Intake: 21:51 IV: 500ml; Total: 500ml. rv Outcome: 21:12 Discharge ordered by MD. rn 21:52 Discharged to home ambulatory. rv 21:52 Condition: good 21:52 Discharge instructions given to patient, Instructed on discharge instructions, follow up and referral plans. medication usage, Demonstrated understanding of instructions, follow-up care, medications, Prescriptions given X 1. 21:53 Patient left the ED. rv Addendum: 03/26/2020 08:00 Addendum: COVID-19 Result: Negative result given to RN to notify pt. Left voice mail. a a5 Signatures: [facility] Ros[facility] Arguelles ds1 Shabana Montenegro RN RN iw Nieto, Roman, MD MD rn Calderon, Audri, RN RN aa5 Darshan Chaparro RN RN rv Pisarski, Jacob jp3
--- NOTE | 2020-03-23 21:23 | EDPHYS ---
Physician Documentation [facility] Name: Yessenia Aleman Age: 59 yrs Sex: Female : 1960 Arrival Date: 03/23/2020 Time: 16:34 Bed 5 Private MD: ED Physician Meek Fitzpatrick HPI: 03/23 19:39 This 59 yrs old Female presents to ER via Ambulatory with complaints of rn Abdominal Pain, Vomiting. 19:39 The patient presents to the emergency department with nausea, vomiting, abdominal pain, rn of the epigastric area. Onset: The symptoms/episode began/occurred 2 day(s) ago. Possible causes: unknown. The symptoms are aggravated by nothing. The symptoms are alleviated by nothing. Associated signs and symptoms: Pertinent positives: abdominal pain, diarrhea, nausea, vomiting, Pertinent negatives: fever. Severity of symptoms: At their worst the symptoms were mild in the emergency department the symptoms are unchanged. The patient has experienced similar episodes in the past. The patient has not recently seen a physician. Historical: - Allergies: 17:15 Codeine; iw - PMHx: 17:15 Anxiety; Arthritis; Cirrhosis; biliary disease; CHF; Chronic Pancreatitis; iw Hypertension; Pneumonia; - PSHx: 17:15 Cholecystectomy; Bile duct stent; Appendectomy; iw - Immunization history:: Adult Immunizations not up to date. - Social history:: Smoking status: Patient denies any tobacco usage or history of. - Family history:: not pertinent. - Hospitalizations: : No recent hospitalization is reported. ROS: 19:39 Constitutional: Negative for fever, chills, and weight loss, Eyes: + redness and clear rn drainage right eye ENT: Negative for injury, pain, and discharge, Neck: Negative for injury, pain, and swelling, Cardiovascular: Negative for chest pain, palpitations, and edema, Respiratory: Negative for shortness of breath, cough, wheezing, and pleuritic chest pain, Abdomen/GI: + abd pain/nausea/vomiting/diarrhea : Negative for injury, bleeding, discharge, and swelling, MS/Extremity: Negative for injury and deformity, Skin: Negative for injury, rash, and discoloration, Neuro: Negative for headache, weakness, numbness, tingling, and seizure. Exam: 19:39 Constitutional: This is a well developed, well nourished patient who is awake, alert, rn appears uncomfortable, ambulatory to room Head/Face: Normocephalic, atraumatic. ENT: dry MM Cardiovascular: Regular rate and rhythm. No pulse deficits. Respiratory: Speaking full sentences. No increased work of breathing, no retractions or nasal flaring. Abdomen/GI: soft, + epigastric tenderness, no rebound Skin: Warm, dry MS/ Extremity: Pulses equal, no cyanosis. Neuro: Awake and alert, GCS 15 Vital Signs: 17:13 BP 136 / 91; Pulse 95; Resp 16; Temp 97.5; Pulse Ox 98% on R/A; Weight 77.11 kg; Height iw 5 ft. 0 in. (152.40 cm); Pain 9/10; 19:09 BP 127 / 100; Pulse 96; Resp 16; Temp 98.1; Pulse Ox 98% on R/A; Pain 9/10; iw 20:00 BP 125 / 73; Pulse 89; Resp 17; Pulse Ox 99% on R/A; rv 21:00 BP 127 / 66; Pulse 91; Resp 16; Pulse Ox 98% on R/A; rv 21:30 BP 131 / 76; Pulse 88; Resp 18; Temp 98; Pulse Ox 99% on R/A; rv 17:13 Body Mass Index 33.20 (77.11 kg, 152.40 cm) iw MDM: 19:17 Patient medically screened. rn 21:11 Differential diagnosis: Nonspecific abd pain, gastritis, pancreatitis, viral rn gastroenteritis, gastroenteritis. Data reviewed: vital signs, nurses notes, lab test result(s), radiologic studies, CT scan, and as a result, I will discharge patient. Counseling: I had a detailed discussion with the patient and/or guardian regarding: the historical points, exam findings, and any diagnostic results supporting the discharge/admit diagnosis, lab results, radiology results, the need for outpatient follow up, to return to the emergency department if symptoms worsen or persist or if there are any questions or concerns that arise at home. Response to treatment: the patient's symptoms have mildly improved after treatment, and as a result, I will discharge patient. Special discussion: Based on the patient's Hx, exam, and Dx evaluation, there is no indication for emergent surgery or inpatient Tx. It is understood by the patient/guardian that if the Sx's persist or worsen they need to return immediately for re-evaluation. I discussed with the patient/guardian in detail that at this point there is no indication for admission to the hospital. It is understood, however, that if the symptoms persist or worsen the patient needs to return immediately for re-evaluation. ED course: No acute findings on CT, no gross changes in bloodwork, stable vitals, pain improved but not resolved, will dc home with prn nausea medication and return precautions. Recommend GI f/u. . 03/23 19:27 Order name: Basic Metabolic Panel; Complete Time: 20:45 rn 03/23 19:27 Order name: CBC with Diff 03/23 19:27 Order name: Hepatic Function 03/23 19:27 Order name: Lipase 03/23 19:27 Order name: Flu 03/23 19:27 Order name: COVID-19 03/23 19:27 Order name: CT Abd/Pelvis - IV Contrast Only; Complete Time: 20:50 rn 03/23 20:07 Order name: Urine Dipstick--Ancillary (enter results) [facility] 03/23 20:33 Order name: Liver (Hepatic) Function; Complete Time: 20:45 EDNV 03/23 20:33 Order name: Lipase; Complete Time: 20:45 ED[facility] 03/23 20:35 Order name: CBC with Automated Diff; Complete Time: 20:45 ED[facility] 03/23 21:23 Order name: Influenza Screen (A ED[facility] 03/23 19:27 Order name: IV Saline Lock; Complete Time: 20:07 rn 03/23 19:27 Order name: Labs collected and sent; Complete Time: 20:07 rn 03/23 19:27 Order name: Urine Dipstick-Ancillary (obtain specimen); Complete Time: 20:10 rn Administered Medications: 20:00 Drug: Demerol 50 mg {Note: rass 0.} Route: IVP; Site: right antecubital; rv 21:51 Follow up: Response: No adverse reaction; RASS: Alert and Calm (0) rv 20:00 Drug: NS 0.9% 500 ml Route: IV; Rate: bolus; Site: right antecubital; rv 21:51 Follow up: IV Status: Completed infusion; IV Intake: 500ml rv 20:00 Drug: Zofran (Ondansetron) 4 mg Route: IVP; Site: right antecubital; rv 21:50 Follow up: Response: No adverse reaction rv 21:49 Drug: Pepcid 20 mg Route: IVP; Site: right antecubital; rv 21:50 Follow up: Response: Medication administered at discharge. rv 21:49 Drug: GI Cocktail without - (Maalox Suspension 30 ml, Lidocaine Liquid 2 % 15 rv ml) Route: PO; 21:50 Follow up: Response: Medication administered at discharge. rv 21:49 Drug: Demerol 50 mg {Note: rass 0.} Route: IVP; Site: left antecubital; rv 21:50 Follow up: Response: Medication administered at discharge. rv Disposition: 03/23/20 21:12 Discharged to Home. Impression: Unspecified abdominal pain, Viral syndrome. - Condition is Stable. - Discharge Instructions: Abdominal Pain, Adult, Nausea and Vomiting, Adult. - Prescriptions for Zofran ODT 4 mg Oral tablet,disintegrating - place 1 tablet by TRANSLINGUAL route every 8 hours As needed; 20 tablet. - Medication Reconciliation Form, Thank You Letter, Antibiotic Education, Prescription Opioid Use form. - Follow up: Private Physician; When: As needed; Reason: Recheck today's complaints, Re-evaluation by your physician. - Problem is new. - Symptoms have improved. Signatures: Dispatcher [employer] Shabana Mora RN RN iw Nieto, Roman, MD MD rn Vicente, Ronaldo, RN RN rv Corrections: (The following items were deleted from the chart) 21:53 21:12 03/23/2020 21:12 Discharged to Home. Impression: Unspecified abdominal pain; rv Viral syndrome. Condition is Stable. Forms are Medication Reconciliation Form, Thank You Letter, Antibiotic Education, Prescription Opioid Use. Follow up: Private Physician; When: As needed; Reason: Recheck today's complaints, Re-evaluation by your physician. Problem is new. Symptoms have improved. rn
--- OUTSIDE RECORDS SUMMARY | 2020-03-23 21:23 | XMS REPORT ---
:1960 Author Organization [facility] Address [address] [place] [place] [address] Care Team Providers Name Role Phone Jeannie Slade Unavailable [phone] PROBLEMS Type Condition ICD9-CM PTE97-HD Onset Condition SNOMED Code Notes Code Code Dates Status Problem Essential I10 Active 96883859 hypertension Problem Anxiety F41.9 Active 29857319 Problem Grieving F43.21 Active 85589909 Problem Moderately severe F32.2 Active 807062960 depression Problem Chronic K86.1 Active 143088799 pancreatitis, unspecified pancreatitis type Problem Post-menopausal N95.0 Active 35712930 bleeding Problem Gastroesophageal K21.9 Active 245822968 reflux disease without esophagitis Problem Peptic ulcer K27.9 Active 59248420 disease Problem Osteoarthritis M15.9 Active 960544214 involving multiple joints on both sides of body Problem Primary insomnia F51.01 Active 4217722 Problem Seasonal allergies J30.2 Active 165185325 Problem Iron deficiency D50.9 Active 18733318 anemia, unspecified iron deficiency anemia type Problem PUD (peptic ulcer K27.9 Active 01236911 disease) ALLERGIES No Known Allergies ENCOUNTERS from 1960 to 2020-03-13 Encounter Location Date Provider Diagnosis [facility] [address] [place], Jeannie Slade [facility] [address], [place] ; [place] [address] Essential hype rtension I10 ; Moderatel y severe depression F32. 2 ; Chronic pancrea titis, unspecified pancreatitis ty pe K86.1 ; Peptic ulcer disease K27.9 ; Recurre nt peptic ulcer di sease K27.9 and Perso nal history of myers sient ischemic attack (TIA), and cerebral in farction without residua l deficits Z86.73 IMMUNIZATIONS No Information SOCIAL HISTORY Tobacco Use: [...] REASON FOR REFERRAL No Information VITAL SIGNS Height 62.00 in Feb, Weight 182 lbs Feb, Temperature 96.7 degrees Fahrenheit Feb, BMI 33.28 kg/m2 Feb, Respiratory Rate 16 /min Feb, Blood pressure systolic 112 mm Hg Feb, Blood pressure diastolic 70 mm Hg Feb, MEDICATIONS Medication SIG (Take, Route, Notes Start Date End Date Status Frequency, Duration) PredniSONE 10 MG 2 tablet daily x 5 Not-Taking days then one tablet daily x 5 days Orally Once a day for 10 days Flonase 50 MCG/ACT 2 spray in each A ctive nostril Nasally Once a day for 30 day(s) Gabapentin 300 MG 1 capsule Orally A ctive Once a day for 90 days Escitalopram Oxalate 1 tablet Orally Once Feb, Active 20 MG a day for 90 days Phenergan 25mg one tablet Po Q 12 No t-Taking hours for 30 days Losartan Potassium 100 1 tablet Orally Once Active MG a day for 90 days Azithromycin 250 MG 2 tablets on the Not-Taking first day, then 1 tablet daily for 4 days Orally Once a day for 5 day(s) Losartan Potassium 100 TAKE 1 TABLET BY Active MG MOUTH EVERY DAY for 90 Promethazine HCl 25 MG 1 tablet as needed Feb, Mar, Active Orally every 12 hrs for 30 day(s) Sucralfate 1 GM 1 tablet on an empty Dec, Active stomach Orally three times a day and bedtime for 30 day(s) Robaxin-750 750 MG 1 tablet Orally A ctive every 4 hrs Doxycycline Hyclate 1 capsule Orally Not-Taking 100 MG twice a day for 7 day(s) Lexapro 20 MG 1 tablet Orally Once A ctive a day for 90 days Seroquel XR 300 MG 1 tablet in the A ctive evening Orally Once a day for 90 days Diazepam 5 MG 1 tablet as needed Act kourtney Orally Once a day prn panic attacks for 10 days PROCEDURES No Information RESULTS No Results REASON FOR VISIT [facility] - [facility] f/u, depression anxiety, Oa pain, htn, chronic pancreatitis, pud, spotting vaginalbleeding MEDICAL (GENERAL) HISTORY Type Description Date Medical [...] Knee Surgery 2013 Hospitalization History Hyperkalemia 07/2018 Hospitalization History stroke 01/2020 Goals Section No Information Health Concerns No Information MEDICAL EQUIPMENT No Information MENTAL STATUS No Information FUNCTIONAL STATUS No Information ASSESSMENTS Encounter Date Diagnosis Assessment Notes Treatment Notes Treatm ent Clinical Notes Feb, Post-menopausal discuss importance of bleeding (ICD-10 - following up with N95.0) obgyn for post menopausal bleeding as very important to check for uterine cancer. Feb, Essential -- Maintian a low salt hypertension DASH diet, exercise, (ICD-10 - I10) weight loss and decrease stress recommended. Keep BP log and will review next visit. If blood pressure consistently above 140/90 return to clinic for adjustment of meds. Try to quit smoking if you currently smoke. Decrease caffeine intake if possib le. - - advised to avoid phenylephrine and pseudoephedrine in otc sinus/cold meds containing these decongestants which work by vasoconstricting blood vessels to help decrease congestion however may cause your BP to rise. -- If you have a cold may take Coricidin brand of cold medicines safe for high blood pressure patients. Feb, Moderately severe continue current meds depression (ICD-10 daily. Avoid caffeine. - F32.2) Make sure to exercise daily, take deep breaths, meditate, take frequent breaks. Take yourself away from the situation causing anxiety and stress by going for a 10-15 minute walk to increase natural endorphins including dopamine, norepinephrine and epinephrine. Feb, Chronic pancreatitis, unspecified pancreatitis type (ICD-10 - K86.1) Feb, Peptic ulcer Gerd- avoid trigger disease (ICD-10 - foods including spicy, K27.9) oily, carbonated drinks, citrus. Do not lay down immediately after eating-wait at least 2 hours, elevate pillow. Eat smaller meals and weight loss recommended for obese patients. Avoid wearing tight clothing. Feb, Recurrent peptic ulcer disease (ICD-10 - K27.9) Feb, Personal history -Hyperlipidemia stable of transient no side effects. ischemic attack - Trying to eat low (TIA), and fat diet and maintain cerebral healthy weight with infarction without diet and exercise and residual deficits . (ICD-10 - Z86.73) - Patient taking meds as directed and tolerating meds with no major side effects. PLAN OF TREATMENT Medication Medication Name Sig Start Date Stop Date Promethazine HCl 25 MG 1 tablet as needed Orally every 24 Feb, 2 020 Mar, 12 hrs for 30 day(s) Escitalopram Oxalate 20 MG 1 tablet Orally Once a day for Feb 90 days Treatment Notes Assessment Notes Clinical Notes Post-menopausal bleeding discuss importance of following up with obgyn for post menopausal bleeding as very important to check for uterine cancer. Essential hypertension -- Maintian a low salt DASH diet, exercise, weight loss and decrease stress recommended. Keep BP log and will review next visit. If blood pressure consistently above 140/90 return to clinic for adjustment of meds. Try to quit smoking if you currently smoke. Decrease caffeine intake if possible.- - advised to avoid phenylephrine and pseudoephedrine in otc sinus/cold meds containing these decongestants which work by vasoconstricting blood vessels to help decrease congestion however may cause your BP to rise.-- If you have a cold may take Coricidin brand of cold medicines safe for high blood pressure patients. Moderately severe depression continue current meds daily. Av oid caffeine. Make sure to exercise daily, take deep breaths, meditate, take frequent breaks. Take yourself away from the situation causing anxiety and stress by going for a 10-15 minute walk to increase natural endorphins including dopamine, norepinephrine and epinephrine. Peptic ulcer disease Gerd- avoid trigger foods including spicy, oily, carbonated drinks, citrus. Do not lay down immediately after eating-wait at least 2 hours, elevate pillow. Eat smaller meals and weight loss recommended for obese patients. Avoid wearing tight clothing. Personal history of transient -Hyperlipidemia stable no side ischemic attack (TIA), and effects.- Trying to eat low fat d iet cerebral infarction without and maintain healthy weight with diet residual deficits and exercise and .- Patient taking meds as directed and tolerating meds with no major side effects. Next Appt Details 4 Weeks Reason: Provider Name:Jeannie Slade, 2020-04-04 08:4 0:00 AM, [address], [place], [address], Insurance Providers Payer Name Payer Address Payer Insured Patient Coverage Cover age Phone Name Relationship to Start Date End Date Insured MEDICARE Attn Part B [id number] Tara Aleman self 2016 [employer] Claims [address] [facility] [address] [employer] [address] [phone] Tara Aleman [id number] [facility] [address] [id number]
[2020-03-23] MEDS ORDERED: LIDOCAINE VISCOUS 2% SOLN 15 ML UDC ONE (21:55)
[2020-03-23] MEDS ORDERED: FAMOTIDINE 20 MG/2 ML VIAL IV ONE (21:55)
[2020-03-23] MEDS ORDERED: MAGNES/ALUMIN/SIMET 30ML UCUP ONE (21:55)
[2020-03-23 23:35] LABS: Urine Blood NEGATIVE (NEG); Urine Glucose NEGATIVE (NEG)
[2020-03-23 23:36] LABS: Urine Protein NEGATIVE (NEG)
== END 2020-03-23 21:53 | disposition home or self-care (01) ==
LOC: ER 16:33
DX: B34.9 Viral infection, unspecified (principal); Z20.828 Contact with and (suspected) exposure to other viral communicable diseases; I10 Essential (primary) hypertension; Z88.5 Allergy status to narcotic agent
CPT/HCPCS: 85025; 80048; 36415; 82565; 80076; 81003; 83690; 87804 ×2; 74177; 99284; U0002; Q9967; J2175 ×2; J7040; J2405

== ENCOUNTER 2020-06-05 11:54 | Emergency (ER) | payer OTHER ==
--- OUTSIDE RECORDS SUMMARY | 2020-06-05 11:59 | XMS REPORT | Continuity of Care Document ---
:1960 Author Organization [facility] t Address [address] [place] [address] Care Team Providers Name Role Phone Asaf CUELLOP Attending Clinician Lab, Fam Pob I Attending Clinician Unavailable Guerline Slade Attending Clinician Kenan WEBSTER, S Attending Clinician Doctor Unassigned, Name Attending Clinician Unavailable James WEBSTER Attending Clinician Micaela WEBSTER Attending Clinician Mazin WEBSTER Attending Clinician Sonya HALL G Attending Clinician Won Fisher MD Attending Clinician Singer CANALES Attending Clinician Obdulia Vasquez MD [...] Medication? Clinician (SIG) Name Name Chlorhexidi Chlorhexidi 2019-0 2020- No Na Slade [address] [facility] ne ne 10-05 0630 swish and [facility] Gluconate Gluconate 00:00: 00:00 spit [facility] Losartan Losartan Yes Na Slade [address] [facility] Potassium Potassium [facility] Lexapro Lexapro Yes Na Slade [address] [facility] Seroquel XR Seroquel XR Yes Na Slade [address] [facility] in [facility] Phenergan Phenergan Yes Na Slade one tablet [facility] Doxycycline Doxycycline Yes Na Slade [address] [facility] Hyclate Hyclate [facility] Azithromyci Azithromyci Yes Na Slade [address] [facility] n n on the [facility] first day, [facility] then 1 l tablet Outpati daily for ent 4 days Clinics Robaxin-750 Robaxin-750 Yes Na Slade [address] [facility] Flonase Flonase Yes Na Slade [address] [facility] each [facility] Diazepam Diazepam Yes Na Slade [address] [facility] as needed [facility] PredniSONE PredniSONE Yes Na Slade [address] [facility] daily x 5 [facility] days then [facility] one tablet l daily x 5 Outpati days ent Clinics Gabapentin Gabapentin Yes Na Slade [address] [facility] Losartan Losartan Yes Na Slade TAKE [address] Potassium Potassium TABLET BY [facility] EVERY DAY [facility] Procedures This patient has no known procedures. Encounters Start End Encounter Admission Attending Care Care Encounter Source Date/Time Date/Time Type Type Clinicians Facility Department ID 2020-05-06 2020-05-06 Emergency Asaf [facility] [id number] 15:21:00 18:38:00 Grisel Guidry [id number] [place] 4.2.7.2.686 [place] [id number] [id number] 2020-05-04 2020-05-04 Laboratory Lab, [facility] [id number] 08:54:13 09:14:13 Only Fam Pob I Health [id number] [place] 4.2.7.2.686 Professio [id number] nal [address] 2020-04-14 2020-04-14 Letter Jeannie Slade 1.2.840.114 [id number] 00:00:00 00:00:00 (Out) AKTHIE [id number] [id number] 043 2020-03-25 2020-03-26 [facility] [id number] 21:13:00 02:01:00 Gabriele [place] [id number] [place] [id number] [place] [id number] 084 2020-03-18 2020-03-18 Orders Doctor HAMMER 1.2.840.114 [id number] 00:00:00 00:00:00 Only Unassigned, KATHIE 350.1.13.10 [place] .2.7.2.686 [id number] [id number] 2020-03-08 2020-03-08 Outpatient [facility] [id number] [facility] 2020-03-07 2020-03-07 Outpatient [facility] [id number] [facility] 2020-01-31 2020-02-08 [facility] 1.2.840.1 [id number] 10:39:00 16:12:00 Encounter Grisel Ron [facility] [id number] Pasha Hinojosa 4.2.7.2.686 Katheryn Retana [id number] [facility] ([facility]) 2020-01-11 2020-01-11 [facility] [id number] 2020-01-06 2020-01-06 [facility] [id number]00 [facility] Clin[facility] 2019-12-18 2019-12-18 Emergency [facility] [id number] 15:26:00 19:16:00 Meka Guidry 350.1.13.10 [place] 4.2.7.2.686 [place] [id number] 2019-10-06 2019-10-06 [facility] [id number] 10:40:00 10:40:[address] ke s - [facility] 2019-09-17 2019-09-17 [facility] [id number] 10:24:00 10:24:[address] ke s [facility] ent [facility] 2019-08-21 2019-08-21 Emergency [facility] [id number] 19:42:19 23:51:00 Gabriele Guidry 350.1.13.10 [place] 4.2.7.2.686 [place] [id number] 2019-07-14 2019-07-14 [facility] [id number] 15:00:00 15:00:[address] Luke s [facility] 2019-06-25 2019-06-25 Emergency [facility] 1.2.840.114 [id number] 16:52:11 20:04:00 Grisel Guidry 350.1.13.10 [place] 4.2.7.2.686 [place] [id number] 2019-06-19 2019-06-19 Emergency [facility] [id number] 13:58:11 19:09:00 Skyler Guidry 350.1.13.10 [place] 4.2.7.2.686 [place] [id number] 2019-06-19 2019-06-19 Orders Doctor JAQUELIN 1.2.840.114 [id number] 00:00:00 00:00:00 Only Unassigned, KATHIE 350.1.13.10 [place] [address]686 [id number] [id number] 2019-05-19 2019-05-19 [facility] [id number] 18:29:04 21:26:00 Gary Guidry 350.1.13.10 [place] 4.2.7.2.686 [place] [id number] 2019-03-02 2019-03-02 [facility] [id number] 10:40:00 10:40:00 [place] [employer] Luke s - [facility] 2019-02-04 2019-02-04 [facility] [id number] 10:55:00 10:55:00 [place] [employer] Luke s - [facility] Medicine Outpati ent Clinics 2018-12-24 2018-12-24 [facility] 1.2.840.114 [id number] 00:00:00 00:00:00 [facility] [id number]2.686 [facility] [id number] Obdulia Guidry 2018-10-07 2018-10-07 [facility] [id number] 11:00:00 11:00:00 [place] [employer] Luke s - Drive [facility] Medicine Outpati ent Clinics 2018-07-28 2018-07-28 [facility] [id number] 09:57:00 09:57:00 [place] [employer] Luke s - [facility] Medicine Outpati ent Clinics 2018-07-25 2018-07-25 [facility] [id number] 14:40:00 14:40:00 [place] [employer] Luke s - Drive [facility] Medicine Outpati ent Clinics Results Test Description Test Time Test Comments Results Result Comments Source Culture, Urine 2017-08-07 15:57:00 Test Item Value Reference Range Interpretation Comme nts Culture, Urine (test code = URC) NF Culture, Urine (test code = URC1) 10 NSF * This is a n EDITED result. * A prior result th at was reported as final has been change d. Nmfbllnxvg2902-15-32 22:53:00 Test Item Value Reference Range Interpretation [...] = UACAST) CAST LPF Urine Source: Urine [id number] SURGICAL PATHOLOGY, LEVEL [id number] 14:31:[address] [address] Laboratory Printed: 07/09/[address] [place] [address] DAEMPathology Page: 1 Patient: ZEKE ROMERO Birthdate: 1960 Age/Sex: 56/F Spec#: [id number]: HERMES SALAZAR Specimen Date: 07/08/17 [...] and few neutrophils. Pathologist:Kelvin Conway Entered by:07/09/171429 PROCEDURES: 74420,76126/4 Patient: ROMEROZEKE Re07/03/17Loc: T4-A MR#: [id number] CONTINUED ON NEXT PAGE Dis: 07/09/17ta: DIS IN - [address] [address] Laboratory Printed: 07/09/[address] [place] [address] [facility]: 2 Patient: ROMEROZEKE [id number] (Continued) GROSS DESCRIPTION A. LIVER BIOPSY LEFT [...] by: DANII SHAHID Entered by:07/08/17 - 1316 LAB.Y MICROSCOPIC DESCRIPTION A microscopic examination was performed to arrive at the diagnostic conclusion reported. Signed ___ ____(Electronically Signed) Kelvin 07/09/17 Patient: ZEKE ROMERO Re07/03/17Loc: T4-A MR#: [id number] END OF REPORT Dis: 07/09/17ta: DIS [id number] 05:13:00 Test Item Value Reference Range Interpretation [...] U/L 8-55 H = ALT) Reference Lab [id number] 04:14:00 Test Item Value Reference Range Interpretation Comments Reference Lab 10 U/mL 0-35 Laurent ECLIA Testing (test code methodolo gyPerformed at: HD = CA199) - [facility] mp[facility] [place], [place] [id number] Di aimee: Chico Suero MD, Phone : [phone] Reference Lab [id number] 16:14:00 Test Item Value Reference Range Interpretation Comments Reference Lab Testing 128.5 Units 0.0-20.0 H (test code = MARLON) Negative 0.0 - 20.0 Equivocal 20.1 - 24.9 Positive >24.9Mitochondr ial (M2) Antibodies are found in 90-96% ofpatients with primary biliary cirrhosis.Perfo rmed at: BN - [facility] [address] [id number] Director: Pj Rider MD, Jf ne: [phone] Reference Lab [id number] 16:14:00 Test Item Value Reference Range Interpretation [...] testing of p ositive sera with both MO-3 and MPO-ANCA enzyme immunoassays. A s many as 5% serumsamples are positive only b y EIA. Ref. AM J Clin Suvhzb1576;111: 507-513. Reference Lab <1:20 titer Neg:<1:20 The atypical p ANCA pattern Testing (test has been obser chelita in code = ATANCA) asignificant percentage of patients with u lcerative colitis,primary sclerosing cholangitis and autoimmune hepatitis.Perfo rmed at: [facility] [id number] Di aimee: Chester ramírez MD, Phone: [phone] [id number] 05:12:00 Test Item Value Reference Range Interpretation [...] 8-55 H code = ALT) Reference Lab [id number] 22:07:00 Test Item Value Reference Range Interpretation Comments Reference Lab Testing 785 IU/L 39-117 H (test code = ISOALKT) Reference Lab Testing 25 % 14-68 (test code = ISOALKBT) Reference Lab Testing 74 % 18-85 (test code = ISOALKLT) Reference Lab Testing 1 % 0-18 Perfor med at: HD - (test code = ISOALKIT) [facility] [place] [address] [place], [place] [id number] b Director: Chico Suero MD, Phone: [phone] [facility] at: - [facility] [id number] Di aimee: Chester ramírez MD, Phone: [phone] [id number] 11:48:00 Test Item Value Reference Range Interpretation [...] code = ALT) 92 U/L 8-55 H [id number] 06:08:00 Test Item Value Reference Range Interpretation [...] 8.5 mg/dL 7.8-10.44 N code = CA) Zuskqkrbi0375-10-98 06:06:00 Test Item Value Reference Range Interpretation [...] code = ALT) 129 U/L 8-55 H [id number] 05:57:00 Test Item Value Reference Range Interpretation [...] code = BASO#) 0.0 thou/uL 0.0-0.2 N Mknzhempxtq7497-03-82 05:55:00 Test Item Value Reference Range Interpretation [...] - 4. 0 CRITICAL: > 4.0 Anticoagulant? FMGBVygtxqnbj1056-56-73 05:36:00 Test Item Value Reference Range Interpretation [...] 8.9 mg/dL 7.8-10.44 N code = CA) Hcukkmxpl0543-31-13 05:33:00 Test Item Value Reference Range Interpretation [...] code = ALT) 160 U/L 8-55 H Afsrixzneu2348-17-27 05:28:00 Test Item Value Reference Range Interpretation [...] 0.1 thou/uL 0.0-0.2 N Chemistry - Elizabeth Uyjbnvb4274-74-16 13:02:00 Test Item Value Reference Range Interpretation [...] hod: Enzyme Linked Fluorescent Immunoassay (Elizabeth)Reference s: [employer] Elizabeth Package Inserts - Directions forU se, June,August 02, [employer] ic. Sgttdgzrk7398-42-30 05:00:00 Test Item Value Reference Range Interpretation [...] code = ALT) 144 U/L 8-55 H Xeybcorrz4997-36-29 04:50:00 Test Item Value Reference Range Interpretation [...] 8.4 mg/dL 7.8-10.44 N code = CA) Qbkevatrif0306-13-45 04:39:00 Test Item Value Reference Range Interpretation [...] code = BASO#) 0.0 thou/uL 0.0-0.2 N Lcdxzvgfu0125-06-43 17:07:00 Test Item Value Reference Range Interpretation Comments Chemistry (test code = IGG) 1032.00 mg/dL 552-1631 N Ndffxydfm0549-09-01 17:07:00 Test Item Value Reference Range Interpretation Comments Chemistry (test code = IGM) 215.00 mg/dL 33-293 N Qypsyvmyeh4386-46-12 00:50:00 Test Item Value Reference Range Interpretation [...] UABLD) Urine Source: Urine Clean CatchChemistry - Fkufukgp0404-90-49 00:25:00 Test Item Value Reference Range Interpretation Comments Chemistry - Specials (test Non-Reactive NonReactive code = THEPAIGM) Chemistry - Specials (test Non-Reactive S/CO NonReactive code = THBSAG) Chemistry - Specials (test Non-Reactive NonReactive code = INTHBCM) Chemistry - Specials (test Non-Reactive NonReactive code = INTHEPC) [id number] 22:12:00 Test Item Value Reference Range Interpretation [...] code 196 U/L 8-55 H = ALT) Xquzhvkse4977-54-83 22:12:00 Test Item Value Reference Range Interpretation Comments Chemistry (test code = LIP) 22 U/L 8-78 N Ujsczyltkz6080-62-23 21:50:00 Test Item Value Reference Range Interpretation [...] code = BASO#) 0.1 thou/uL 0.0-0.2 N Vymyxkrrc6585-92-41 22:49:00 Test Item Value Reference Range Interpretation [...] 78 U/L 8-55 H code = ALT) Bnmlkeuxy7846-98-64 22:49:00 Test Item Value Reference Range Interpretation Comments Chemistry (test code = LIP) 12 U/L 8-78 N Wreysadhbb8158-51-77 22:24:00 Test Item Value Reference Range Interpretation [...] code = BASO#) 0.0 thou/uL 0.0-0.2 N Rqkqqgjdwj8786-05-99 22:00:00 Test Item Value Reference Range Interpretation [...] UABLD) Negative Negative Urine Source: Urine Clean KguolFvuajkyc8821-82-71 09:28:00 Test Item Value Reference Range Interpretation Comments Accuchek (test code = ACU) 99 mg/dL 70-110 N Nojhckljoh3298-79-59 09:14:00 Test Item Value Reference Range Interpretation [...] UABLD) Negative Negative Urine Source: Urine Clean WssjbSbabkofbxq0034-05-64 21:28:00 Test Item Value Reference Range Interpretation [...] UABLD) Negative Negative Urine Source: Urine Clean KwnmfFositfhli4804-88-61 21:09:00 Test Item Value Reference Range Interpretation [...] 95 U/L 8-55 H code = ALT) [id number] 21:09:00 Test Item Value Reference Range Interpretation Comments Chemistry (test code = LIP) 39 U/L 8-78 N [id number] 20:49:00 Test Item Value Reference Range Interpretation [...] code = BASO#) 0.0 thou/uL 0.0-0.2 N Hqtbbywxfa2830-58-85 21:34:00 Test Item Value Reference Range Interpretation [...] desired. Presu mptive positive urines are [facility]. Urine Source: Urine Clean IrnvvNatpjzeqli9689-59-42 19:17:00 Test Item Value Reference Range Interpretation [...] = UABLD) Negative Negative Urine Source: Urine GqtffqWbsvtrbvf0493-71-44 18:48:00 Test Item Value Reference Range Interpretation [...] code 84 U/L 8-55 H = ALT) [id number] 18:48:00 Test Item Value Reference Range Interpretation Comments Chemistry (test code = JORGE) 53.0 U/L 25-125 N Rxmmgklen4941-60-09 18:48:00 Test Item Value Reference Range Interpretation Comments Chemistry (test code = LIP) 10 U/L 8-78 N Uacvqezeaf2081-52-12 18:19:00 Test Item Value Reference Range Interpretation [...] = BASO#) 0.1 thou/uL 0.0-0.2 N Culture, [id number] 10:22:00 Test Item Value Reference Range Interpretation Comments Culture, Urine (test code = URC) NF N Culture, Urine (test code = URC1) 10 MSF N Imlwbumpi0918-25-48 17:38:00 Test Item Value Reference Range Interpretation Comments Chemistry (test code = PHOS) 2.9 mg/dL 2.3-4.7 N [id number] 17:04:00 Test Item Value Reference Range Interpretation [...] H = ALT) Chemistry - BNP, HgbA1c, [id number] 17:04:00 Test Item Value Reference Range Interpretation Comments Chemistry - BNP, 4.9 % 4.0-6.0 N Therapeutic goals for glycemic HgbA1c, PTHi (test control ( ADA)Adults:- Goal of code = MJUW8RD) therapy: Les s than 7.0% HbA1c- Action suggeste d: Greater than 8.0% JcJ3pQfwdl tric patients:- Toddlers and pr eschoolers: Less than 8.5% (but Greater than 7.5%)- Katelynn ool age (6-12 years): Less th an 8%- Adolescents and young adults (13-19 years): Less than 7.5%Diagnosing diabetes (ADA)- HbA1c: Greater than or equal to 6.5% Values of 5.7 - 6.4% indicate HIGH risk for developing DiabetesInterna tional Expert Committee Repor t on the Role of the E8ATkcur in the Diagnosis of Di abetes. Diabetes Care 2009July;32(7): 1327-1334ADA, Diagnosis cla ssification of diabetes [facility].Diabetes Care 2010; 33 S uppl 1:S62 Sppyazukb0749-18-49 16:59:00 Test Item Value Reference Range Interpretation Comments Chemistry (test code = CRP) 1.16 mg/dL = or < 0.5 H What test does the doctor want? C-REACTIVE PROTEIN (CRP)[id number] 16:53:00 Test Item Value Reference Range Interpretation [...] HPF None Seen Urine Source: Urine Clean HkhwlQyzvqcecqn9302-51-37 16:46:00 Test Item Value Reference Range Interpretation [...] code = BASO#) 0.1 thou/uL 0.0-0.2 N Jbjismgjio8922-95-62 21:59:00 Test Item Value Reference Range Interpretation [...] Urine Clean CatchSepsis - Lactic Acid >2 [id number] 23:59:00 Test Item Value Reference Range Interpretation Comments Sepsis - Lactic Additional Lactate testin g will be Acid >2 Rflx performed in 3 hrs (test code = according to e QIAEG4C) SepsisProtocol. Ularovhlv3637-44-20 21:12:00 Test Item Value Reference Range Interpretation Comments Chemistry (test code = JORGE) 59.0 U/L 25-125 N [id number] 20:59:00 Test Item Value Reference Range Interpretation [...] 87 U/L 8-55 H code = ALT) Sedrqdbre4497-70-40 20:59:00 Test Item Value Reference Range Interpretation Comments Chemistry (test code = LIP) 32 U/L 8-78 N Chemistry - Xnehvlp3977-76-11 20:59:00 Test Item Value Reference Range Interpretation Comments Chemistry - Lactate (test code = 2.1 mmol/L 0.5-2.2 N LACTSEP-T) Ogjfnumqzy3911-16-10 20:43:00 Test Item Value Reference Range Interpretation [...] = UABLD) Negative Negative Urine Source: Urine MyngxzTishiecmdy5069-14-22 20:37:00 Test Item Value Reference Range Interpretation [...]
[2020-06-05 13:39] LABS: Basophils % 0.8 % (0-1.3); Lymphocytes % 24.5 % (15.3-44.8); MPV 7.6 fL (7.6-11.3); RBC Red Blood Cell Count 3.88 M/uL (3.86-4.86)
[2020-06-05 13:54] LABS: ALT/SGPT 168 U/L (12-78); AST/SGOT 125 U/L (15-37); Albumin 3.5 g/dL (3.4-5.0); Alkaline Phosphatase 972 U/L (45-117); BUN Blood Urea Nitrogen 15 mg/dL (7-18); Bicarbonate 23 mmol/L (21-32); Bilirubin Total 1.2 mg/dL (0.2-1.0); Glucose Level 98 mg/dL (74-106); Lipase 125 U/L (73-393); Potassium 3.8 mmol/L (3.5-5.1); Protein, Total 8.2 g/dL (6.4-8.2); Sodium Level 140 mmol/L (136-145)
[2020-06-05] MEDS ORDERED: MEPERIDINE HCL 50 MG/ML ONE ×2 (13:57→15:13)
[2020-06-05] MEDS ORDERED: ONDANSETRON 4 MG/2 ML VIAL ONE ×2 (13:57→15:13)
[2020-06-05] MEDS ORDERED: NA CHLORIDE 0.9% 1,000 ML ONE (15:13)
--- NOTE | 2020-06-05 15:59 | RAD REPORT ---
EXAM DESCRIPTION: CT - Abdomen Pelvis W Contrast - 06/05/2020 3:44 pm CLINICAL HISTORY: ABD PAIN, epigastric pain COMPARISON: Abdomen Pelvis W Contrast dated 03/23/2020 TECHNIQUE: Biphasic, helical CT imaging of the abdomen and pelvis was performed following 100 ml non -ionic IV contrast. No oral contrast administered. All CT scans are performed using dose optimization technique as appropriate and may include automated exposure control or mA/KV adjustment according to patient size. FINDINGS: No suspicious findings in the lung bases. Liver and spleen show no suspicious findings. No pancreatic mass or peripancreatic inflammatory stran ding. Pancreatic duct and biliary tree match comparison. Pneumobilia is present. Patient is status po st cholecystectomy. These are all stable findings. Symmetric renal function is seen with no hydronephrosis or suspicious renal mass. No pyelonephritis o r acute parenchymal process. No bladder abnormalities. No adrenal abnormalities. Uterus and ovaries s how no suspicious findings. No dilated bowel loops or bowel wall thickening. Appendectomy clips are present. No active GI process identifiable. No free air, free fluid or inflammatory stranding. No hernia, mass or bulky lymphaden opathy. No suspicious bony findings. Disc and bone degenerative changes are present. Vascular calcifications present with no acute finding. IMPRESSION: No pancreatitis or acute CT abdomen or pelvis finding. No significant change from March 2020.
--- NOTE | 2020-06-05 16:21 | EDPHYS ---
Physician Documentation [facility] Name: Yessenia Aleman Age: 59 yrs Sex: Female : 1960 Arrival Date: 06/05/2020 Time: 11:56 Bed 18 Private MD: Jeannie Slade ED Physician Meek Fitzpatrick HPI: 06/05 14:36 This 59 yrs old Female presents to ER via Ambulatory with complaints of pm1 Abdominal Pain, Back Pain. 14:36 The patient presents with abdominal pain in the upper abdomen. Onset: The pm1 symptoms/episode began/occurred 4 day(s) ago. The symptoms do not radiate. Associated signs and symptoms: Pertinent positives: nausea and vomiting, chronic lower back pain that she sees pain management for, Pertinent negatives: chest pain, constipation, diarrhea, shortness of breath. The symptoms are described as achy, constant. Modifying factors: The symptoms are alleviated by nothing, the symptoms are aggravated by food. Severity of pain: in the emergency department the pain is actually worse. The patient has experienced similar episodes in the past, multiple times, chronically. The patient has not recently seen a physician. 14:36 Patient owes her GI MD a significant amount of money that she cannot pay therefore she pm1 has not been able to get to of her pancreatitis medications, including creon, for the past 2 months. Historical: - Allergies: 12:30 Codeine; ca1 - PMHx: 12:30 Anxiety; Arthritis; biliary chirrosis; biliary disease; CHF; Chronic Pancreatitis; ca1 Cirrhosis; Hypertension; Pancreatitis; Pneumonia; - PSHx: 12:30 Cholecystectomy; Bile duct stent; Appendectomy; ca1 - Immunization history:: Flu vaccine is not up to date. - Social history:: Smoking status: Patient denies any tobacco usage or history of. ROS: 14:36 Constitutional: Negative for fever, chills, and weight loss, Neck: Negative for injury, pm1 pain, and swelling, Cardiovascular: Negative for chest pain, palpitations, and edema, Respiratory: Negative for shortness of breath, cough, wheezing, and pleuritic chest pain. 14:36 MS/Extremity: Negative for injury and deformity, Skin: Negative for injury, rash, and discoloration, Neuro: Negative for headache, weakness, numbness, tingling, and seizure. 14:36 Abdomen/GI: Positive for abdominal pain, nausea and vomiting, Negative for diarrhea, constipation. 14:36 Back: Positive for chronic low back pain. Exam: 14:36 Constitutional: This is a well developed, well nourished patient who is awake, alert, pm1 and in no acute distress. Head/Face: Normocephalic, atraumatic. Chest/axilla: Normal chest wall appearance and motion. Nontender with no deformity. No lesions are appreciated. Cardiovascular: Regular rate and rhythm with a normal S1 and S2. No gallops, murmurs, or rubs. Normal PMI, no JVD. No pulse deficits. Respiratory: Lungs have equal breath sounds bilaterally, clear to auscultation and percussion. No rales, rhonchi or wheezes noted. No increased work of breathing, no retractions or nasal flaring. 14:36 Back: No spinal tenderness. No costovertebral tenderness. Full range of motion. Skin: Warm, dry with normal turgor. Normal color with no rashes, no lesions, and no evidence of cellulitis. MS/ Extremity: Pulses equal, no cyanosis. Neurovascular intact. Full, normal range of motion. 14:36 Abdomen/GI: Exam negative for acute changes, Inspection: abdomen appears normal, Palpation: abdomen is soft and non-tender, in all quadrants. 14:36 Neuro: Exam negative for acute changes, Orientation: Mentation: is normal, Motor: is normal. Vital Signs: 12:26 BP 158 / 114; Pulse 89; Resp 16 S; Temp 97.7(TE); Pulse Ox 100% on R/A; Weight 77.11 kg ca1 (R); Height 5 ft. 0 in. (152.40 cm) (R); Pain 8/10; 14:47 BP 197 / 100; Pulse 73; Resp 17 S; Pulse Ox 100% on R/A; jd3 16:44 BP 168 / 99; Pulse 66; Resp 17 S; Pulse Ox 100% on R/A; jd3 12:26 Body Mass Index 33.20 (77.11 kg, 152.40 cm) ca1 14:47 provider notified of BP] jd3 MDM: 13:16 Patient medically screened. pm1 16:17 Data reviewed: vital signs. Data interpreted: Pulse oximetry: on room air is 100 %. pm1 Interpretation: normal. Counseling: I had a detailed discussion with the patient and/or guardian regarding: the historical points, exam findings, and any diagnostic results supporting the discharge/admit diagnosis, lab results, radiology results, the need for outpatient follow up, to return to the emergency department if symptoms worsen or persist or if there are any questions or concerns that arise at home. 06/05 13:14 Order name: Basic Metabolic Panel; Complete Time: 14:40 pm1 06/05 13:14 Order name: CBC with Diff; Complete Time: 13:49 pm1 06/05 13:14 Order name: Hepatic Function; Complete Time: 14:40 pm1 06/05 13:14 Order name: Lipase; Complete Time: 14:40 pm1 06/05 14:42 Order name: CT Abd/Pelvis - IV Contrast Only; Complete Time: 16:17 pm1 06/05 13:14 Order name: IV Saline Lock; Complete Time: 13:37 pm1 06/05 13:14 Order name: Labs collected and sent; Complete Time: 13:37 pm1 Administered Medications: 13:46 Drug: Demerol 50 mg Route: IVP; Site: right antecubital; jd3 14:40 Follow up: Response: No adverse reaction; RASS: Alert and Calm (0) jd3 13:46 Drug: Zofran (Ondansetron) 2 mg Route: IVP; Site: right antecubital; jd3 14:40 Follow up: Response: No adverse reaction jd3 15:02 Drug: Demerol 50 mg Route: IVP; Site: right antecubital; jd3 16:00 Follow up: Response: No adverse reaction; RASS: Alert and Calm (0) jd3 15:02 Drug: Zofran (Ondansetron) 4 mg Route: IVP; Site: right antecubital; jd3 16:00 Follow up: Response: No adverse reaction jd3 15:02 Drug: NS 0.9% 1000 ml Route: IV; Rate: 1000 ml; Site: right antecubital; jd3 16:00 Follow up: Response: No adverse reaction; IV Status: Completed infusion; IV Intake: jd3 1000ml 16:36 Drug: Phenergan 12.5 mg Route: IVP; Site: right antecubital; jd3 16:54 Follow up: Response: Medication administered at discharge. jd3 16:36 Drug: [place] 10 mg-325 mg 1 tabs Route: PO; jd3 16:54 Follow up: Response: Medication administered at discharge. jd3 Disposition: 18:40 Co-signature as Attending Physician, Meek Fitzpatrick MD. rn Disposition: 06/05/20 16:20 Discharged to Home. Impression: Unspecified abdominal pain. - Condition is Stable. - Discharge Instructions: Abdominal Pain, Adult. - Prescriptions for Phenergan 25 mg Rectal Suppository - insert 1 suppository by RECTAL route every 6 hours As needed; 12 suppository. - Medication Reconciliation Form, Thank You Letter, Antibiotic Education, Prescription Opioid Use form. - Follow up: Emergency Department; When: As needed; Reason: Worsening of condition. Follow up: Private Physician; When: 2 - 3 days; Reason: Recheck today's complaints, Continuance of care, Re-evaluation by your physician. - Problem is new. - Symptoms have improved. Signatures: Dispatcher [employer] EDMS Meek Fitzpatrick MD MD rn Mitch Wilburn, [employer] SUPERVISOR PROPERTIES pm1 Guillermo Dexter RN RN jd3 Samantha Rivera RN RN ca1 Corrections: (The following items were deleted from the chart) 16:55 16:20 06/05/2020 16:20 Discharged to Home. Impression: Unspecified abdominal pain. jd3 Condition is Stable. Forms are Medication Reconciliation Form, Thank You Letter, Antibiotic Education, Prescription Opioid Use. Follow up: Emergency Department; When: As needed; Reason: Worsening of condition. Follow up: Private Physician; When: 2 - 3 days; Reason: Recheck today's complaints, Continuance of care, Re-evaluation by your physician. Problem is new. Symptoms have improved. pm1
--- NOTE | 2020-06-05 16:21 | ER ---
Nurse's Notes [facility] Name: Yessenia Aleman Age: 59 yrs Sex: Female : 1960 Arrival Date: 06/05/2020 Time: 11:56 Bed 18 Private MD: Jeannie Slade Diagnosis: Unspecified abdominal pain Presentation: 06/05 12:26 Chief complaint: Patient states: Epigastric pain radiating to the RUQ and to the R side ca1 of the back x 4 days, worse since last night. Reports Hx of Pancreatitis. Reports Nausea and vomiting. Coronavirus screen: Client denies travel out of the [place] in the last 14 days. nausea, vomiting. Client presents with at least one sign or symptom that may indicate coronavirus-19. Standard/surgical mask placed on the client. Provider contacted for isolation considerations. Ebola Screen: Patient negative for fever greater than or equal to 101.5 degrees Fahrenheit, and additional compatible Ebola Virus Disease symptoms Patient denies exposure to infectious person. Patient denies travel to an Ebola-affected area in the 21 days before illness onset. No symptoms or risks identified at this time. Initial Sepsis Screen: Does the patient meet any 2 criteria? No. Patient's initial sepsis screen is negative. Does the patient have a suspected source of infection? No. Patient's initial sepsis screen is negative. Risk Assessment: Do you want to hurt yourself or someone else? Patient reports no desire to harm self or others. Onset of symptoms was June 05, 2020. 12:26 Method Of Arrival: Ambulatory ca1 12:26 Acuity: HOLLI 3 ca1 Historical: - Allergies: 12:30 Codeine; ca1 - PMHx: 12:30 Anxiety; Arthritis; biliary chirrosis; biliary disease; CHF; Chronic Pancreatitis; ca1 Cirrhosis; Hypertension; Pancreatitis; Pneumonia; - PSHx: 12:30 Cholecystectomy; Bile duct stent; Appendectomy; ca1 - Immunization history:: Flu vaccine is not up to date. - Social history:: Smoking status: Patient denies any tobacco usage or history of. Screenin:45 Abuse screen: Denies threats or abuse. Nutritional screening: No deficits noted. jd3 Tuberculosis screening: No symptoms or risk factors identified. Fall Risk Ambulatory Aid- None/Bed Rest/Nurse Assist (0 pts). Gait- Normal/Bed Rest/Wheelchair (0 pts) Mental Status- Oriented to own ability (0 pts). Total Cote Fall Scale indicates No Risk (0-24 pts). Assessment: 13:15 General: Appears in no apparent distress. uncomfortable, Behavior is calm, cooperative, jd3 appropriate for age. Pain: Complains of pain in abdomen Quality of pain is described as sharp, tender. Neuro: Level of Consciousness is awake, alert, obeys commands, Oriented to person, place, time, situation. Cardiovascular: Denies chest pain, Capillary refill < 3 seconds Patient's skin is warm and dry. Respiratory: Airway is patent Respiratory effort is even, unlabored, Respiratory pattern is regular, symmetrical, Denies cough, shortness of breath. GI: Abdomen is round non-distended, Abd is soft X 4 quads Abdomen is tender to palpation X 4 quads. Reports upper abdominal pain, nausea. : No signs and/or symptoms were reported regarding the genitourinary system. EENT: No signs and/or symptoms were reported regarding the EENT system. Derm: Skin is intact, Skin is dry, Skin is normal, Skin temperature is warm. Musculoskeletal: Circulation, motion, and sensation intact. Range of motion: intact in all extremities. 14:10 Reassessment: Patient appears in no apparent distress at this time. Patient and/or jd3 family updated on plan of care and expected duration. Pain level reassessed. Patient is alert, oriented x 3, equal unlabored respirations, skin warm/dry/pink. Patient states feeling better. 16:44 Reassessment: Patient appears in no apparent distress at this time. Patient and/or jd3 family updated on plan of care and expected duration. Pain level reassessed. Patient is alert, oriented x 3, equal unlabored respirations, skin warm/dry/pink. Patient states feeling better. 16:54 Reassessment: Patient is alert, oriented x 3, equal unlabored respirations, skin jd3 warm/dry/pink. even and steady gait upon discharge. Vital Signs: 12:26 BP 158 / 114; Pulse 89; Resp 16 S; Temp 97.7(TE); Pulse Ox 100% on R/A; Weight 77.11 kg ca1 (R); Height 5 ft. 0 in. (152.40 cm) (R); Pain 8/10; 14:47 BP 197 / 100; Pulse 73; Resp 17 S; Pulse Ox 100% on R/A; jd3 16:44 BP 168 / 99; Pulse 66; Resp 17 S; Pulse Ox 100% on R/A; jd3 12:26 Body Mass Index 33.20 (77.11 kg, 152.40 cm) ca1 14:47 provider notified of BP] jd3 ED Course: 11:56 Patient arrived in ED. ag5 11:57 Jeannie Slade MD is Private Physician. ag5 12:29 Triage completed. ca1 12:30 Arm band placed on right wrist. ca1 13:03 Mitch Wilburn NP is PHCP. pm1 13:03 Meek Fitzpatrick MD is Attending Physician. pm1 13:16 Guillermo Dexter RN is Primary Nurse. jd3 13:40 Inserted saline lock: 22 gauge in right antecubital area, using aseptic technique. jd3 Blood collected. 15:44 CT Abd/Pelvis - IV Contrast Only In Process Unspecified. EDMS 16:45 Patient has correct armband on for positive identification. Placed in gown. Bed in low jd3 position. Call light in reach. Side rails up X 1. Pulse ox on. NIBP on. 16:55 No provider procedures requiring assistance completed. IV discontinued, intact, jd3 bleeding controlled, No redness/swelling at site. Pressure dressing applied. Administered Medications: 13:46 Drug: Demerol 50 mg Route: IVP; Site: right antecubital; jd3 14:40 Follow up: Response: No adverse reaction; RASS: Alert and Calm (0) jd3 13:46 Drug: Zofran (Ondansetron) 2 mg Route: IVP; Site: right antecubital; jd3 14:40 Follow up: Response: No adverse reaction jd3 15:02 Drug: Demerol 50 mg Route: IVP; Site: right antecubital; jd3 16:00 Follow up: Response: No adverse reaction; RASS: Alert and Calm (0) jd3 15:02 Drug: Zofran (Ondansetron) 4 mg Route: IVP; Site: right antecubital; jd3 16:00 Follow up: Response: No adverse reaction jd3 15:02 Drug: NS 0.9% 1000 ml Route: IV; Rate: 1000 ml; Site: right antecubital; jd3 16:00 Follow up: Response: No adverse reaction; IV Status: Completed infusion; IV Intake: jd3 1000ml 16:36 Drug: Phenergan 12.5 mg Route: IVP; Site: right antecubital; jd3 16:54 Follow up: Response: Medication administered at discharge. jd3 16:36 Drug: [place] 10 mg-325 mg 1 tabs Route: PO; jd3 16:54 Follow up: Response: Medication administered at discharge. jd3 Intake: 16:00 IV: 1000ml; Total: 1000ml. jd3 Outcome: 16:20 Discharge ordered by . pm1 16:55 Discharged to home ambulatory, with family. jd3 16:55 Condition: stable 16:55 Discharge instructions given to patient, Instructed on discharge instructions, follow up and referral plans. medication usage, Demonstrated understanding of instructions, follow-up care, medications, Prescriptions given X 1. 16:55 Patient left the ED. jd3 Signatures: Dispatcher [employer] EDMS Mitch Wilburn, [employer]EL FILTER WASHER AND PRESSER pm1 Guillermo Dexter RN RN jd3 Acob, Cheryl, RN RN ca1 Shahriar Hardwick 5
[2020-06-05] MEDS ORDERED: PROMETHAZINE INJ 25 MG/ML AMP ONE (16:46)
[2020-06-05] MEDS ORDERED: HYDROCODONE/APAP 10/325 TAB ONE (16:47)
[2020-06-05 17:18] VITALS: TEMP 97.7; O2SAT 100
[2020-06-05 17:21] VITALS: BP 168/99
== END 2020-06-05 16:55 | disposition home or self-care (01) ==
LOC: ER 11:54
DX: R10.10 Upper abdominal pain, unspecified (principal); I10 Essential (primary) hypertension; Z88.5 Allergy status to narcotic agent
CPT/HCPCS: 96361; 85025; 80048; 36415; 80076; 83690; 74177; 96375; 96374; 99284; Q9967; J2550; J2175 ×2; J7030; J2405 ×2

== ENCOUNTER 2020-06-18 17:07 | Emergency (ER) | payer OTHER ==
--- OUTSIDE RECORDS SUMMARY | 2020-06-18 17:11 | XMS REPORT | Continuity of Care Document ---
:1960 Author Organization [facility] t Address [address] [place] [address] Care Team Providers Name Role Phone Pob, Lab Main Attending Clinician Unavailable Only, Test Attending Clinician Unavailable Doctor Unassigned, Name Attending Clinician Unavailable Asaf CUELLOP Attending Clinician Lab, Fam Pob I Attending Clinician Unavailable Guerline Slade Attending Clinician Maxien Grayson MD Attending Clinician James WEBSTER Attending Clinician Micaela WEBSTER Attending Clinician Mazin WEBSTER Attending Clinician Kaiden Hassan NP Attending Clinician Won Fisher MD Attending Clinician [...] Medication? Clinician (SIG) Name Name Chlorhexidi Chlorhexidi 2019-2019- No Na Slade [address] [facility] ne ne 10-05 swish and [facility] Gluconate Gluconate 00:00: 00:00 spit Me moria 00 :00 [facility] Losartan Losartan Yes Na Slade [address] [facility] Potassium Potassium [facility] Lexapro Lexapro Yes Na Slade [address] [facility] Seroquel XR Seroquel XR Yes Na Slade [address] [facility] in the [facility] evening [facility] Clinics Phenergan Phenergan Yes Na Slade one tablet [facility] Doxycycline Doxycycline Yes Na Slade [address] [facility] Hyclate Hyclate [facility] Azithromyci Azithromyci Yes Na Slade [address] [facility] n n on the [facility] first day, [facility] then 1 l tablet Outpati daily for ent 4 days Clinics Robaxin-750 Robaxin-750 Yes Na Slade [address] [facility] Flonase Flonase Yes Na Slade [address] [facility] each [facility] nostril [facility] Diazepam Diazepam Yes Na Slade [address] [facility] as needed [facility] PredniSONE PredniSONE Yes Na Slade [address] [facility] daily x 5 [facility] - days then [facility] one tablet l daily x 5 [facility] Gabapentin Gabapentin Yes Na Slade [address] [facility] Losartan Losartan Yes Na Slade TAKE [address] Potassium Potassium TABLET BY [facility] M[facility]TH [facility] EVERY DAY l [facility] ent Clinics Procedures This patient has no known procedures. Encounters Start End Encounter Admission Attending Care Care Encounter Source Date/Time Date/Time Type Type Clinicians Facility Department ID 2020-06-17 2020-06-17 Fuel Injection Servicer Elizabeth, [facility] 1.2.840.114 [id number] 15:27:53 15:42:53 Visit Lab Main Chao [id number] [place] 4.2.7.2.686 [facility] [phone] [facility] 353 Building 2020-06-17 2020-06-17 Laboratory Only, [facility] 1.2.840.114 [id number] 15:26:19 15:41:19 Only Test Chao [id number] [place] 4.2.7.2.686 [place] [id number] [id number] 2020-06-17 2020-06-17 Orders Doctor HAMMER 1.2.840.114 [id number] 00:00:00 00:00:00 Only Unassigned, KATHIE [id number] [facility] 4.2.7.2.686 [id number] [id number] 2020-05-06 2020-05-06 Emergency [facility] 1.2.840.114 [id number] 15:21:00 18:38:00 Grisel Chao [id number] [place] 4.2.7.2.686 [place] [id number] [id number] 2020-05-04 2020-05-04 Laboratory Lab, [facility] 1.2.840.114 [id number] 08:54:13 09:14:13 Only Aldair Johnson [facility] [id number] [place] 4.2.7.2.686 [facility] [phone] formerly [facility] 044 Office Building One 2020-04-14 2020-04-14 Letter Jeannie Slade 1.2.840.114 [id number] 00:00:00 00:00:00 (Out) KATHIE [id number] [facility] 42.7.2.686 [id number] 2020-03-25 2020-03-26 Emergency [facility], [facility] [id number] 21:13:00 02:01:00 Gabriele Guidry [id number] [place] 4.2.7.2.686 [place] [id number] 2020-03-18 2020-03-18 Orders Doctor HAMMER 1.2.840.114 [id number] 00:00:00 00:00:00 Only UnassignedKATHIE 350.1.13.10 [place] [facility] 4.2.7.2.686 [id number] [id number] 2020-03-08 2020-03-08 Out[facility] [id number] 2020-03-07 2020-03-07 [facility] [id number] [facility] 2020-01-31 2020-02-08 [facility] 1.2.840.1 [id number] 10:39:00 16:12:00 [facility] [id number] Pasha Hinojosa 4.2.7.2.686 [facility] [phone] [facility] 110 ([facility] 2020-01-11 2020-01-11 [facility] [id number] [facility] 2020-01-06 2020-01-06 [facility] [id number] [facility] 2019-12-18 2019-12-[address] [facility] [id number] 15:26:00 19:16:00 eMka Guidry 350.1.13.10 [place] 4.2.7.2.686 [place] [id number] [id number] 2019-10-06 2019-10-06 [facility] [id number] 10:40:00 10:40:00 t [employer] [facility] Medicine Medicine Outpati ent Clinics 2019-09-17 2019-09-17 [facility] [id number] 10:24:00 10:24:00 t [employer] [facility] 2019-08-21 2019-08-21 Emergency Critical [facility], [facility] [id number] 19:42:19 23:51:00 Gabriele Guidry 350.1.13.10 [place] 4.2.7.2.686 [place] [address] [id number] 2019-07-14 2019-07-14 [facility] [id number] 15:00:00 15:00:00 [employer]aborate [employer] [facility] 2019-06-25 2019-06-25 Emergency Ron, [facility] 1.2.840.114 [id number] 16:52:11 20:04:00 Grisel Chao 350.1.13.10 [place] 4.2.7.2.686 [place] [address] [id number] [id number] 2019-06-19 2019-06-19 Emergency [facility] [id number] 13:58:11 19:09:00 Skyler Guidry 350.1.13.10 [place] 4.2.7.2.686 [place] [address] [id number] [id number] 2019-06-19 2019-06-19 Orders Doctor HAMMER 1.2.840.114 [id number] 00:00:00 00:00:00 Only Unassigned, KATHIE 350.1.13.10 [place] [address].2.7.2.686 [id number] 2019-05-19 2019-05-19 Emergency [facility] [id number] 18:29:04 21:26:00 Gary Guidry 350.1.13.10 [place] 4.2.7.2.686 [place] [id number] [id number] 2019-03-02 2019-03-02 [facility] [id number] 10:40:00 10:40:00 [employer] [facility] 2019-02-04 2019-02-04 [facility] [id number] 10:55:00 10:55:00 t Relaborate [place] [facility] 2018-12-24 2018-12-24 Telephone VEDA Vasquez 1.2.840.114 [id number] 00:00:00 00:00:00 [facility] 350.1.13.10 [facility] 4.2.7.2.686 [facility] [id number] 198 [place] 2018-10-07 2018-10-07 [facility] [id number] 11:00:00 11:00:00 [facility] 2018-07-28 2018-07-28 [facility] [id number] 09:57:00 09:57:00 [facility] 2018-07-25 2018-07-25 [facility] [id number] 14:40:00 14:40:00 [facility] Results Test Description Test Time Test Comments Results Result Comments Source Culture, Urine 2017-08-07 15:57:00 Test Item Value Reference Range Interpretation Comme nts Culture, Urine (test code = URC) NF Culture, Urine (test code = URC1) 10 NSF * This is a n EDITED result. * A prior result th at was reported as final has been change d. Qowsnypvfw0136-09-04 22:53:00 Test Item Value Reference Range Interpretation [...] = UACAST) CAST LPF Urine Source: Urine [id number] SURGICAL PATHOLOGY, LEVEL [id number] 14:31:[address] [address] Laboratory Printed: 07/09/17 143[facility] DAEMPathology Page: 1 Patient: ZEKE ROMERO Birthdate: 1960 Age/Sex: 56/F Spec#: [id number]: HERMES SALAZAR Specimen Date: 07/08/17 [...] Pathologist:Kelvin Conway Entered by:07/09/17 - 1429 PROCEDURES: 61871,11655/4 Patient: ZEKE ROMERO Re07/03/17Loc: T4-A MR#: [id number] CONTINUED ON NEXT PAGE Dis: 07/09/17ta: DIS IN - [place] [address] [place] [address] Laboratory Printed: 07/09/[address] [place] [address] DAEMPathology Page: 2 Patient: ZEKE ROMERO [id number] (Continued) GROSS DESCRIPTION A. LIVER BIOPSY LEFT [...] 07/09/17 Patient: ZEKE ROMERO Re07/03/17Loc: T4-A MR#: [id number] END OF REPORT Dis: 07/09/17ta: DIS [id number] 05:13:00 Test Item Value Reference Range Interpretation [...] U/L 8-55 H = ALT) Reference Lab [id number] 04:14:00 Test Item Value Reference Range Interpretation Comments Reference Lab 10 U/mL 0-35 Laurent ECLIA Testing (test code methodolo gyPerformed at: HD = CA199) - [facility] ds1345 [place], [place] [id number] Di aimee: Chico Suero MD, Phone : [phone] Reference Lab [id number] 16:14:00 Test Item Value Reference Range Interpretation Comments Reference Lab Testing 128.5 Units 0.0-20.0 H (test code = MARLON) Negative 0.0 - 20.0 Equivocal 20.1 - 24.9 Positive >24.9Mitochondr ial (M2) Antibodies are found in 90-96% ofpatients with primary biliary cirrhosis.Perfo rmed at: [facility] [address] [id number] Director: Pj Rider MD, [facility] ne: [phone] Reference Lab [id number] 16:14:00 Test Item Value Reference Range Interpretation [...] testing of p ositive sera with both MT-3 and MPO-ANCA enzyme immunoassays. A s many as 5% serumsamples are positive only b y EIA. Ref. AM J Clin Lxlfcu7159;111: 507-513. Reference Lab <1:20 titer Neg:<1:20 The atypical p ANCA pattern Testing (test has been obser chelita in code = ATANCA) asignificant percentage of patients with u lcerative colitis,primary sclerosing cholangitis and autoimmune hepatitis.Perfo rmed at: - [facility] [address] [id number] Di aimee: Chester ramírez MD, Phone: [phone] [id number] 05:12:00 Test Item Value Reference Range Interpretation [...] 8-55 H code = ALT) Reference Lab [id number] 22:07:00 Test Item Value Reference Range Interpretation Comments Reference Lab Testing 785 IU/L 39-117 H (test code = ISOALKT) Reference Lab Testing 25 % 14-68 (test code = ISOALKBT) Reference Lab Testing 74 % 18-85 (test code = ISOALKLT) Reference Lab Testing 1 % 0-18 Perfor med at: HD - (test code = ISOALKIT) [facility] [address]zt[address] [place], [place] [id number] b Director: Chico Suero MD, Phone: [phone] [facility] at: [facility] [id number] Di aimee: Chester ramírez MD, Phone: [phone] Cpkxebzvd5230-84-42 11:48:00 Test Item Value Reference Range Interpretation [...] code = ALT) 92 U/L 8-55 H [id number] 06:08:00 Test Item Value Reference Range Interpretation [...] 8.5 mg/dL 7.8-10.44 N code = CA) [id number] 06:06:00 Test Item Value Reference Range Interpretation [...] code = ALT) 129 U/L 8-55 H Svbkibmejo2561-04-45 05:57:00 Test Item Value Reference Range Interpretation [...] code = BASO#) 0.0 thou/uL 0.0-0.2 N Nqzepraljoy4582-54-80 05:55:00 Test Item Value Reference Range Interpretation [...] - 4. 0 CRITICAL: > 4.0 Anticoagulant? STTLTqrcvkvdm4543-86-20 05:36:00 Test Item Value Reference Range Interpretation [...] 8.9 mg/dL 7.8-10.44 N code = CA) Qoxszqmso7979-09-93 05:33:00 Test Item Value Reference Range Interpretation [...] code = ALT) 160 U/L 8-55 H Dshddqugpa6130-19-28 05:28:00 Test Item Value Reference Range Interpretation [...] 0.1 thou/uL 0.0-0.2 N Chemistry - Elizabeth Ufallha6930-94-40 13:02:00 Test Item Value Reference Range Interpretation [...] hod: Enzyme Linked Fluorescent Immunoassay (Elizabeth)Reference s: [employer] Elizabeth [employer] - Directions forU se, June,August 02, [employer]. Rhabczsms8026-40-03 05:00:00 Test Item Value Reference Range Interpretation [...] code = ALT) 144 U/L 8-55 H Qylnturwr7740-39-29 04:50:00 Test Item Value Reference Range Interpretation [...] 8.4 mg/dL 7.8-10.44 N code = CA) Ndyzmbxhat0372-89-43 04:39:00 Test Item Value Reference Range Interpretation [...] code = BASO#) 0.0 thou/uL 0.0-0.2 N Oxgxdeasy7083-29-39 17:07:00 Test Item Value Reference Range Interpretation Comments Chemistry (test code = IGG) 1032.00 mg/dL 552-1631 N Qqdcyiumf9422-25-47 17:07:00 Test Item Value Reference Range Interpretation Comments Chemistry (test code = IGM) 215.00 mg/dL 33-293 N Alxtaunejl9568-06-25 00:50:00 Test Item Value Reference Range Interpretation [...] UABLD) Urine Source: Urine Clean CatchChemistry - Jjcedgjc8239-42-51 00:25:00 Test Item Value Reference Range Interpretation Comments Chemistry - Specials (test Non-Reactive NonReactive code = THEPAIGM) Chemistry - Specials (test Non-Reactive S/CO NonReactive code = THBSAG) Chemistry - Specials (test Non-Reactive NonReactive code = INTHBCM) Chemistry - Specials (test Non-Reactive NonReactive code = INTHEPC) [id number] 22:12:00 Test Item Value Reference Range Interpretation [...] code 196 U/L 8-55 H = ALT) Utrgqtvyg5093-28-61 22:12:00 Test Item Value Reference Range Interpretation Comments Chemistry (test code = LIP) 22 U/L 8-78 N Zzsmqrgvnd0476-23-36 21:50:00 Test Item Value Reference Range Interpretation [...] code = BASO#) 0.1 thou/uL 0.0-0.2 N Aoseqzkfn4436-33-76 22:49:00 Test Item Value Reference Range Interpretation [...] 78 U/L 8-55 H code = ALT) Wurkwrxhp6325-63-91 22:49:00 Test Item Value Reference Range Interpretation Comments Chemistry (test code = LIP) 12 U/L 8-78 N Yspteamyem7882-67-04 22:24:00 Test Item Value Reference Range Interpretation [...] code = BASO#) 0.0 thou/uL 0.0-0.2 N Spxmlcntql7370-91-97 22:00:00 Test Item Value Reference Range Interpretation [...] UABLD) Negative Negative Urine Source: Urine Clean IeudtFygudeme4182-20-75 09:28:00 Test Item Value Reference Range Interpretation Comments Accuchek (test code = ACU) 99 mg/dL 70-110 N Geaopbwenv8962-65-68 09:14:00 Test Item Value Reference Range Interpretation [...] UABLD) Negative Negative Urine Source: Urine Clean ZgbziVsnlotydhk7921-20-39 21:28:00 Test Item Value Reference Range Interpretation [...] UABLD) Negative Negative Urine Source: Urine Clean UqmemNpaqyajge2738-01-01 21:09:00 Test Item Value Reference Range Interpretation [...] 95 U/L 8-55 H code = ALT) Faqwywyhz3795-07-64 21:09:00 Test Item Value Reference Range Interpretation Comments Chemistry (test code = LIP) 39 U/L 8-78 N Syrvyvtcap5528-51-70 20:49:00 Test Item Value Reference Range Interpretation [...] code = BASO#) 0.0 thou/uL 0.0-0.2 N Fcsznejvcu5010-49-16 21:34:00 Test Item Value Reference Range Interpretation [...] Toxicology (test Not Detected NotDetected code = SLMI) Toxicology (test Detected NotDetected A code = [...] desired. Presu mptive positive urines are held [facility]. Urine Source: Urine Clean AdintJujjzubdmj9374-45-51 19:17:00 Test Item Value Reference Range Interpretation [...] = UABLD) Negative Negative Urine Source: Urine ItawtwIcchsrknz9249-24-65 18:48:00 Test Item Value Reference Range Interpretation [...] code 84 U/L 8-55 H = ALT) Avgmfdgmz6703-36-77 18:48:00 Test Item Value Reference Range Interpretation Comments Chemistry (test code = JORGE) 53.0 U/L 25-125 N Rajaxibxp8199-58-06 18:48:00 Test Item Value Reference Range Interpretation Comments Chemistry (test code = LIP) 10 U/L 8-78 N Jedigpuujt5913-51-15 18:19:00 Test Item Value Reference Range Interpretation [...] = BASO#) 0.1 thou/uL 0.0-0.2 N Culture, Hwcyj9913-77-46 10:22:00 Test Item Value Reference Range Interpretation Comments Culture, Urine (test code = URC) NF N Culture, Urine (test code = URC1) 10 MSF N Wpiskfhug1353-26-10 17:38:00 Test Item Value Reference Range Interpretation Comments Chemistry (test code = PHOS) 2.9 mg/dL 2.3-4.7 N Rlujmxzzo2423-78-68 17:04:00 Test Item Value Reference Range Interpretation [...] H = ALT) Chemistry - BNP, HgbA1c, [id number] 17:04:00 Test Item Value Reference Range Interpretation Comments Chemistry - BNP, 4.9 % 4.0-6.0 N Therapeutic goals for glycemic HgbA1c, PTHi (test control ( ADA)Adults:- Goal of code = INAB2JW) therapy: Les s than 7.0% HbA1c- Action suggeste d: Greater than 8.0% CrM1wRorfw tric patients:- Toddlers and pr eschoolers: Less than 8.5% (but Greater than 7.5%)- Katelynn ool age (6-12 years): Less th an 8%- Adolescents and young adults (13-19 years): Less than 7.5%Diagnosing diabetes (ADA)- HbA1c: Greater than or equal to 6.5% Values of 5.7 - 6.4% indicate HIGH risk for developing DiabetesInterna tional Expert Committee Repor t on the Role of the C8NKvjng in the Diagnosis of Di abetes. Diabetes Care 2009July;32(7): 1327-1334ADA, Diagnosis cla ssification of diabetes [facility].Diabetes Care 2010; 33 S uppl 1:S62 Yrdbcfpuz8946-67-89 16:59:00 Test Item Value Reference Range Interpretation Comments Chemistry (test code = CRP) 1.16 mg/dL = or < 0.5 H What test does the doctor want? C-REACTIVE PROTEIN (CRP)Ouefhatrhh1587-97-09 16:53:00 Test Item Value Reference Range Interpretation [...] HPF None Seen Urine Source: Urine Clean WbyniCivlscsqcx6514-20-32 16:46:00 Test Item Value Reference Range Interpretation [...] code = BASO#) 0.1 thou/uL 0.0-0.2 N Eqzlvmcqqv6644-18-37 21:59:00 Test Item Value Reference Range Interpretation [...] Urine Clean CatchSepsis - Lactic Acid >2 [id number] 23:59:00 Test Item Value Reference Range Interpretation Comments Sepsis - Lactic Additional Lactate testin g will be Acid >2 Rflx performed in 3 hrs (test code = according to health system [id number]) SepsisProtocol. [id number] 21:12:00 Test Item Value Reference Range Interpretation Comments Chemistry (test code = JORGE) 59.0 U/L 25-125 N Ubjrquzbl0402-31-31 20:59:00 Test Item Value Reference Range Interpretation [...] 87 U/L 8-55 H code = ALT) Jwtkjxomn0558-19-20 20:59:00 Test Item Value Reference Range Interpretation Comments Chemistry (test code = LIP) 32 U/L 8-78 N Chemistry - Lsuhmbn0950-58-61 20:59:00 Test Item Value Reference Range Interpretation Comments Chemistry - Lactate (test code = 2.1 mmol/L 0.5-2.2 N LACTSEP-T) Ksvebqvupo0486-37-18 20:43:00 Test Item Value Reference Range Interpretation [...] = UABLD) Negative Negative Urine Source: Urine EfykgcOcnnempccc3104-88-27 20:37:00 Test Item Value Reference Range Interpretation [...]
[2020-06-18] MEDS ORDERED: MEPERIDINE HCL 50 MG/ML ONE ×2 (17:51→19:58)
[2020-06-18] MEDS ORDERED: ONDANSETRON 4 MG/2 ML VIAL ONE (17:52)
[2020-06-18 18:11] LABS: Absolute Lymphocytes (CBC) 1.3 K/uL (0.7-4.9); Basophils % 0.8 % (0-1.3); Hematocrit 34.4 % (36.0-45.0); Lymphocytes % 24.1 % (15.3-44.8); MPV 8.3 fL (7.6-11.3); RBC Red Blood Cell Count 3.93 M/uL (3.86-4.86)
[2020-06-18 19:14] LABS: Albumin 3.6 g/dL (3.4-5.0); Bilirubin Direct 0.7 mg/dL (0-0.2); Bilirubin Total 0.9 mg/dL (0.2-1.0); Potassium 3.7 mmol/L (3.5-5.1); Protein, Total 8.4 g/dL (6.4-8.2)
--- NOTE | 2020-06-18 19:26 | RAD REPORT ---
EXAM DESCRIPTION: CT - Abdomen Pelvis W Contrast - 06/18/2020 6:48 pm CLINICAL HISTORY: ABD PAIN COMPARISON: Abdomen Pelvis W Contrast dated 06/05/2020 TECHNIQUE: Biphasic, helical CT imaging of the abdomen and pelvis was performed following 100 ml non -ionic IV contrast. No oral contrast. All CT scans are performed using dose optimization technique as appropriate and may include automated exposure control or mA/KV adjustment according to patient size. FINDINGS: No suspicious findings in the lung bases. The liver, spleen, and pancreas show no suspicious findings. Cholecystectomy clips are present. No bi liary tree dilatation. Mild pneumobilia matches comparison. Symmetric renal function is seen with no hydronephrosis or suspicious renal mass. No pyelonephritis o r acute parenchymal process. No adrenal abnormalities. Partially filled urinary bladder shows no susp icious finding. Uterus and ovaries also without suspicious finding. No dilated bowel loops or bowel wall thickening. Appendectomy clips are present. No active bowel proc ess identifiable. No free air, free fluid or inflammatory stranding. No hernia, mass or bulky lympha denopathy. No suspicious bony findings. IMPRESSION: Contrast enhanced CT abdomen and pelvis showing no acute or emergent finding. No significant change from comparison.
--- NOTE | 2020-06-18 19:39 | EDPHYS ---
Physician Documentation [facility] Name: Yessenia Aleman Age: 59 yrs Sex: Female : 1960 Arrival Date: 06/18/2020 Time: 17:10 Bed 25 Private MD: Jeannie Slade ED Physician Kyler Flores HPI: 06/18 18:00 This 59 yrs old Female presents to ER via Ambulatory with complaints of pm1 Abdominal Pain. 18:00 The patient presents with abdominal pain in the epigastric area. Onset: The pm1 symptoms/episode began/occurred 3 day(s) ago. Associated signs and symptoms: Pertinent positives: nausea and vomiting, Pertinent negatives: diarrhea, dysuria, fever. The symptoms are described as achy, constant. Modifying factors: The symptoms are alleviated by nothing, the symptoms are aggravated by nothing. Severity of pain: in the emergency department the pain is actually worse. The patient has experienced similar episodes in the past, chronically. The patient has not recently seen a physician, has an appointment scheduled, next Saturday. Historical: - Allergies: 17:22 Codeine; iw - PMHx: 17:22 Anxiety; Arthritis; biliary chirrosis; biliary disease; CHF; Chronic Pancreatitis; iw Cirrhosis; Hypertension; Pneumonia; - PSHx: 17:22 Cholecystectomy; Bile duct stent; Appendectomy; iw - Immunization history:: Flu vaccine is up to date. - Social history:: Smoking status: Patient denies any tobacco usage or history of. ROS: 18:00 Constitutional: Negative for fever, chills, and weight loss, Cardiovascular: Negative pm1 for chest pain, palpitations, and edema, Respiratory: Negative for shortness of breath, cough, wheezing, and pleuritic chest pain. 18:00 Back: Negative for injury and pain, MS/Extremity: Negative for injury and deformity, Skin: Negative for injury, rash, and discoloration, Neuro: Negative for headache, weakness, numbness, tingling, and seizure. 18:00 Abdomen/GI: Positive for abdominal pain, nausea and vomiting, Negative for diarrhea, constipation. Exam: 18:00 Constitutional: This is a well developed, well nourished patient who is awake, alert, pm1 and in no acute distress. Head/Face: Normocephalic, atraumatic. 18:00 Back: No spinal tenderness. No costovertebral tenderness. Full range of motion. Skin: Warm, dry with normal turgor. Normal color with no rashes, no lesions, and no evidence of cellulitis. MS/ Extremity: Pulses equal, no cyanosis. Neurovascular intact. Full, normal range of motion. 18:00 Cardiovascular: Exam negative for acute changes, Rate: normal, Rhythm: regular, Pulses: no pulse deficits are appreciated. 18:00 Respiratory: Exam negative for acute changes, respiratory distress, shortness of breath. 18:00 Abdomen/GI: Inspection: obese Palpation: soft, in all quadrants, mild abdominal tenderness, in the epigastric area. 18:00 Neuro: Exam negative for acute changes, Orientation: is normal, Mentation: is normal, Motor: is normal, moves all fours. Vital Signs: 17:20 BP 107 / 70; Pulse 94; Resp 16 S; Temp 98.4; Pulse Ox 100% on R/A; Weight 79.38 kg; iw Height 5 ft. 0 in. (152.40 cm); Pain 9/10; 18:20 BP 143 / 98; Pulse 77; Resp 16 S; Pulse Ox 100% on R/A; ca1 19:15 BP 127 / 91; Pulse 72; Resp 16; Pulse Ox 100% ; sf 20:01 BP 131 / 77; Pulse 75; Resp 16; Pulse Ox 100% ; sf 17:20 Body Mass Index 34.18 (79.38 kg, 152.40 cm) iw MDM: 17:30 Patient medically screened. pm1 19:30 Data reviewed: vital signs. Data interpreted: Pulse oximetry: on room air is 100 %. pm1 Interpretation: normal. 19:31 Counseling: I had a detailed discussion with the patient and/or guardian regarding: the pm1 historical points, exam findings, and any diagnostic results supporting the discharge/admit diagnosis, lab results, radiology results, the need for outpatient follow up, for definitive care, a obstetrics nurse, to return to the emergency department if symptoms worsen or persist or if there are any questions or concerns that arise at home. 19:36 ED course: Patient has appointment next Saturday with GI. Reports that she has enough pm1 pain medications at home and would like to be prescribed antiemetics. 06/18 17:30 Order name: Basic Metabolic Panel pm1 06/18 17:30 Order name: CBC with Diff; Complete Time: 18:48 pm1 06/18 17:30 Order name: Hepatic Function; Complete Time: 19:29 pm1 06/18 17:30 Order name: Lipase; Complete Time: 19:29 pm1 06/18 17:30 Order name: Basic Metabolic Panel; Complete Time: 19:29 EDMS 06/18 18:45 Order name: CREATININE WHOLE BLOOD; Complete Time: 18:48 EDMS 06/18 17:30 Order name: IV Saline Lock; Complete Time: 17:59 pm1 06/18 17:30 Order name: Labs collected and sent; Complete Time: 17:59 pm1 06/18 17:35 Order name: CT Abd/Pelvis - IV Contrast Only; Complete Time: 19:29 pm1 Administered Medications: 17:45 Drug: Zofran (Ondansetron) 4 mg Route: IVP; Site: right wrist; ca1 19:48 Follow up: Response: No adverse reaction iw 17:47 Drug: Demerol 50 mg {Note: rass 0.} Route: IVP; Site: right wrist; ca1 19:48 Follow up: Response: No adverse reaction iw 19:36 CANCELLED (Physician Discretion): Phenergan 25 mg IVP once pm1 19:45 Drug: Phenergan 12.5 mg Route: IVP; Site: right wrist; iw 20:30 Follow up: Response: No adverse reaction sf 19:47 Drug: Demerol 50 mg Route: IVP; Site: right wrist; iw 20:30 Follow up: Response: No adverse reaction sf Disposition: 06/19 09:07 Co-signature as Attending Physician, Kyler Flores MD I agree with the assessment and irene plan of care. Disposition: 06/18/20 19:38 Discharged to Home. Impression: Unspecified abdominal pain. - Condition is Stable. - Discharge Instructions: Abdominal Pain, Adult. - Prescriptions for Phenergan 25 mg Rectal Suppository - insert 1 suppository by RECTAL route every 6 hours As needed; 12 suppository. promethazine 25 mg Oral Tablet - take 1 tablet by ORAL route every 6 hours As needed; 20 tablet. - Medication Reconciliation Form, Thank You Letter, Antibiotic Education, Prescription Opioid Use form. - Follow up: Emergency Department; When: As needed; Reason: Worsening of condition. Follow up: Private Physician; When: 2 - 3 days; Reason: Recheck today's complaints, Continuance of care, Re-evaluation by your physician. - Problem is new. - Symptoms have improved. Signatures: Dispatcher [employer] EDKyler Lowry MD MD cha Williams, Irene, RN RN iw Mitch Wilburn NP BACK WEDGER pm1 Samantha Rivera RN RN ca1 Eagle Rice RN RN sf Corrections: (The following items were deleted from the chart) 06/18 19:36 19:35 Phenergan 25 mg IVP once ordered. pm1 pm1 20:34 19:38 06/18/2020 19:38 Discharged to Home. Impression: Unspecified abdominal pain. sf Condition is Stable. Forms are Medication Reconciliation Form, Thank You Letter, Antibiotic Education, Prescription Opioid Use. Follow up: Emergency Department; When: As needed; Reason: Worsening of condition. Follow up: Private Physician; When: 2 - 3 days; Reason: Recheck today's complaints, Continuance of care, Re-evaluation by your physician. Problem is new. Symptoms have improved. pm1
--- NOTE | 2020-06-18 19:39 | ER ---
Nurse's Notes [facility] Name: Yessenia Aleman Age: 59 yrs Sex: Female : 1960 Arrival Date: 06/18/2020 Time: 17:10 Bed 25 Private MD: Jeannie Slade Diagnosis: Unspecified abdominal pain Presentation: 06/18 17:20 Chief complaint: Patient states: mid abd pain radiating to RUQ for a few days, also has iw n/v today , feels like her pancreas. Coronavirus screen: At this time, the client does not indicate any symptoms associated with coronavirus-19. Ebola Screen: Patient negative for fever greater than or equal to 101.5 degrees Fahrenheit, and additional compatible Ebola Virus Disease symptoms Patient denies exposure to infectious person. Patient denies travel to an Ebola-affected area in the 21 days before illness onset. No symptoms or risks identified at this time. Initial Sepsis Screen: Does the patient meet any 2 criteria? No. Patient's initial sepsis screen is negative. Does the patient have a suspected source of infection? No. Patient's initial sepsis screen is negative. Risk Assessment: Do you want to hurt yourself or someone else? Patient reports no desire to harm self or others. Onset of symptoms was June 15, 2020. 17:20 Method Of Arrival: Ambulatory iw 17:20 Acuity: HOLLI 3 iw Historical: - Allergies: 17:22 Codeine; iw - PMHx: 17:22 Anxiety; Arthritis; biliary chirrosis; biliary disease; CHF; Chronic Pancreatitis; iw Cirrhosis; Hypertension; Pneumonia; - PSHx: 17:22 Cholecystectomy; Bile duct stent; Appendectomy; iw - Immunization history:: Flu vaccine is up to date. - Social history:: Smoking status: Patient denies any tobacco usage or history of. Screenin:30 Abuse screen: Denies threats or abuse. Denies injuries from another. Nutritional ca1 screening: No deficits noted. Tuberculosis screening: No symptoms or risk factors identified. Fall Risk IV access (20 points). Assessment: 17:30 General: Appears in no apparent distress. comfortable, Behavior is calm, cooperative, ca1 appropriate for age. Pain: Complains of pain in right upper quadrant and left upper quadrant Pain radiates to posterior aspect of right lateral abdomen and anterior aspect of right lateral abdomen Pain currently is 9 out of 10 on a pain scale. Quality of pain is described as stabbing, Pain began 2-3 days ago. Is intermittent. Neuro: Level of Consciousness is awake, alert, obeys commands, Oriented to person, place, time, situation. Cardiovascular: Heart tones S1 S2 present Capillary refill < 3 seconds Patient's skin is warm and dry. Respiratory: Airway is patent Respiratory effort is even, unlabored, Respiratory pattern is regular, symmetrical. GI: Abdomen is round non-distended, Bowel sounds present X 4 quads. Abd is soft and non tender X 4 quads. Reports nausea, vomiting. : No signs and/or symptoms were reported regarding the genitourinary system. EENT: No signs and/or symptoms were reported regarding the EENT system. Derm: Skin is intact, is healthy with good turgor, Skin is pink, warm \\T\\ dry. Musculoskeletal: Circulation, motion, and sensation intact. Capillary refill < 3 seconds. 18:20 Reassessment: Patient appears in no apparent distress at this time. Patient and/or ca1 family updated on plan of care and expected duration. Pain level reassessed. Patient is alert, oriented x 3, equal unlabored respirations, skin warm/dry/pink. 20:32 Reassessment: pt family member on phone, states is waiting out front for pt being sg discharged. pt family states " im waiting for her out front, she called like 30 mins ago and said she was being discharged." explained to pt family that the nurse is getting the patient ready for discharge, pt family states " still?! Loree been out here for like 20 mins now waiting." Explained to pt family that the ED is very busy at this time and that the patient will be sent out with staff in approx 15 to 20 mins. Vital Signs: 17:20 BP 107 / 70; Pulse 94; Resp 16 S; Temp 98.4; Pulse Ox 100% on R/A; Weight 79.38 kg; iw Height 5 ft. 0 in. (152.40 cm); Pain 9/10; 18:20 BP 143 / 98; Pulse 77; Resp 16 S; Pulse Ox 100% on R/A; ca1 19:15 BP 127 / 91; Pulse 72; Resp 16; Pulse Ox 100% ; sf 20:01 BP 131 / 77; Pulse 75; Resp 16; Pulse Ox 100% ; sf 17:20 Body Mass Index 34.18 (79.38 kg, 152.40 cm) iw ED Course: 17:10 Patient arrived in ED. am2 17:10 Jeannie Slade MD is Private Physician. am2 17:22 Triage completed. iw 17:22 Arm band placed on. iw 17:29 Mitch Wilburn NP is PHCP. pm1 17:29 Kyler Flores MD is Attending Physician. pm1 17:30 Patient has correct armband on for positive identification. Placed in gown. Bed in low ca1 position. Call light in reach. Side rails up X 1. Pulse ox on. NIBP on. Warm blanket given. 17:31 Samantha Rivera, RN is Primary Nurse. ca1 17:42 Initial lab(s) drawn, by me, sent to lab. Inserted saline lock: 22 gauge in right ca1 wrist, using aseptic technique. Blood collected. 19:20 CT Abd/Pelvis - IV Contrast Only In Process Unspecified. EDMS 19:36 Primary Nurse role handed off by Samantha Rivera, LUCIUS iw 19:36 Shabana Montenegro, LUCIUS is Primary Nurse. iw 19:37 Basic Metabolic Panel Sent. iw 20:34 No provider procedures requiring assistance completed. IV discontinued, intact, sf bleeding controlled, No redness/swelling at site. Pressure dressing applied. Administered Medications: 17:45 Drug: Zofran (Ondansetron) 4 mg Route: IVP; Site: right wrist; ca1 19:48 Follow up: Response: No adverse reaction iw 17:47 Drug: Demerol 50 mg {Note: rass 0.} Route: IVP; Site: right wrist; ca1 19:48 Follow up: Response: No adverse reaction iw 19:36 CANCELLED (Physician Discretion): Phenergan 25 mg IVP once pm1 19:45 Drug: Phenergan 12.5 mg Route: IVP; Site: right wrist; iw 20:30 Follow up: Response: No adverse reaction sf 19:47 Drug: Demerol 50 mg Route: IVP; Site: right wrist; iw 20:30 Follow up: Response: No adverse reaction sf Outcome: 19:38 Discharge ordered by . pm1 20:34 Condition: stable sf 20:34 Discharge instructions given to patient, Instructed on discharge instructions, follow up and referral plans. medication usage, Demonstrated understanding of instructions, follow-up care, medications, Prescriptions given X 2. 20:34 Patient left the ED. sf Signatures: Dispatcher [employer] EDMS Eagle Celestin, LUCIUS KAN sg Shabana Montenegro RN RN iw Mitch Wilburn, RAFAEL PREPARATORY TECHNICIAN pm1 Tosha Roca am2 Samantha Rivera RN RN ca1 Eagle Rice RN RN sf Corrections: (The following items were deleted from the chart) 17:23 17:20 Pulse 94bpm; Resp 16bpm; Spontaneous; Pulse Ox 100% RA; Temp 98.4F; 79.38 kg; iw Height 5 ft. 0 in.; BMI: 34.1; Pain 9/10; iw
[2020-06-18] MEDS ORDERED: PROMETHAZINE INJ 25 MG/ML AMP ONE (19:58)
[2020-06-18 20:47] VITALS: TEMP 98.4; O2SAT 100
[2020-06-18 20:50] VITALS: BP 131/77
== END 2020-06-18 20:34 | disposition home or self-care (01) ==
LOC: ER 17:07
DX: R10.13 Epigastric pain (principal); I10 Essential (primary) hypertension; Z88.5 Allergy status to narcotic agent
CPT/HCPCS: 85025; 80048; 36415; 82565; 80076; 83690; 74177; 96375; 96374; 99284; Q9967; J2550; J2175 ×2; J2405

== ENCOUNTER 2020-07-10 07:33 | Emergency (ER) | payer OTHER ==
--- OUTSIDE RECORDS SUMMARY | 2020-07-10 07:38 | XMS REPORT | Continuity of Care Document ---
:1960 Author Organization [facility] t Address [address] [place] [address] Care Team Providers Name Role Phone Collin DIANA Sydnie Attending Clinician Doctor Unassigned, Name Attending Clinician Unavailable Keira WEBSTER, S Attending Clinician Only, Test Attending Clinician Unavailable Sumit MA Attending Clinician Rayray Ayala MD Attending Clinician Pob, Lab Main Attending Clinician Unavailable Asaf CUELLOP Attending Clinician Lab, Fam Pob I Attending Clinician Unavailable Guerline Slade Attending Clinician Kenan WEBSTER S Attending Clinician James WEBSTER Attending Clinician Micaela WEBSTER Attending Clinician Mazin WEBSTER Attending Clinician Kaiden Hassan NP Attending Clinician Won Fisher MD Attending Clinician Attending Clinician Christina WEBSTER, Obdulia Attending Clinician DANIEL Mai Attending Clinician Unavailable Haley Cox Attending Clinician Unavailable PROVIDER, TEMP Attending Clinician Unavailable RADU Attending Clinician Unavailable To Attending Clinician Unavailable KRIS Attending Clinician Unavailable Bia CASTILLO Attending Clinician Unavailable Keira WEBSTER, S Admitting Clinician Diego Grigsby MD Admitting Clinician Haley Cox Admitting Clinician Unavailable Problems This patient has no known problems. Allergies, Adverse Reactions, Alerts This patient has no known allergies or adverse reactions. Medications Ordered Filled Start Stop Current Ordering Indication Dosage Frequency Signature Comments Components Source Medication Medication Date Date Medication? Clinician (SIG) Name Name Chlorhexidi Chlorhexidi 2020-0 2020- No Na Slade [address] [facility] ne ne 10-05 0630 swish and [facility] Gluconate Gluconate 00:00: 00:00 spit Me moria 00 :00 [facility] Losartan Losartan Yes Na Slade [address] [facility] Potassium Potassium [facility] Lexapro Lexapro Yes Na Slade [address] [facility] Seroquel XR Seroquel XR Yes Na Slade [address] [facility] Phenergan Phenergan Yes Na Slade one tablet [facility] Doxycycline Doxycycline Yes Na Slade [address] [facility] [facility] [facility] Azithromyci Azithromyci Yes Na Slade [address] [facility] n n on the [facility] first day, Memoria then 1 l tablet Outpati daily for ent 4 days Clinics Robaxin-750 Robaxin-750 Yes Na Slade [address] [facility] Flonase Flonase Yes Na Slade [address] [facility] Diazepam Diazepam Yes Na Slade [address] [facility] [address] [facility] needed [facility] Outpat[facility] ent Clinics PredniSONE PredniSONE Yes Na [...] [facility] MOUTH [facility] EVERY DAY l [facility] Procedures This patient has no known procedures. Encounters Start End Encounter Admission Attending Care Care Encounter Source Date/Time Date/Time Type Type Clinicians Facility Department ID 2020-07-07 2020-07-07 Emergency Collin, Jaki [facility] 1.2.840.114 [id number] 18:47:00 22:05:00 Sydnie Chao [id number] [place] 4.2.7.2.686 [place] [id number] 084 2020-07-07 2020-07-07 Orders Doctor HAMMER 1.2.840.114 [id number] 00:00:00 00:00:00 Only UnassignedKATHIE 350.1.13.10 [place]2.7.2.68 [id number] 009 2020-07-04 2020-07-04 [facility] 1.2.840.114 [id number] 06:30:00 08:44:00 Encounter Moise Goodman Chao [id number] [place] [address] [place] [address] [id number] [place] 07 2020-07-04 2020-07-04 Orders Doctor HAMMER 1.2.840.114 [id number] 00:00:00 00:00:00 Only UnassKATHIE bonilla 350.1.13.10 [place]2.7.2.686 [id number] 009 2020-07-01 2020-07-01 Laboratory Only, [facility] 1.2.840.114 [id number] 09:02:10 09:17:10 Only Test Chao 350.1.13.10 [place] 4.2.7.2.686 [place] [id number] 353 2020-07-01 2020-07-01 Orders Doctor HAMMER 1.2.840.114 [id number] 00:00:00 00:00:00 Only Unassigned, KATHIE 350.1.13.10 [place] [facility] 4.2.7.2.686 [id number] 009 2020-06-30 2020-06-30 [facility] [id number]00 [facility] 2020-06-22 2020-06-22 Outpatient [facility] [id number] [facility] 00:[facility]:00 [facility] 2020-06-20 2020-06-20 [facility] 1.2.840.114 [id number] 06:29:00 08:58:00 Encounter Moise Maxine Chao 350.1.13.10 [place] 4.2.7.2.686 Surgical [id number] [place] 071 2020-06-20 2020-06-20 Anesthesia Abe Arana [facility] 1.2.840.11 [id number] 08:03:00 08:12:00 Event Dominguez Seo Chao 350.1.13.10 [place] 4.2.7.2.686 Surgical [id number] [place] 020 2020-06-20 2020-06-20 Orders Doctor JAQUELIN 1.2.840.114 [id number] 00:00:00 00:00:00 Only Unassigned, KATHIE 350.1.13.10 [place] [facility] 4.2.7.2.686 [id number] 009 2020-06-17 2020-06-17 Operating Room Scheduler Elizabeth, [facility] 1.2.840.114 [id number] 15:27:53 15:42:53 Visit Lab Main Chao 350.1.13.10 [place] 4.2.7.2.686 Professio [id number] [address] 2020-06-17 2020-06-17 Laboratory Only, [facility] 1.2.840.114 [id number] 15:26:19 15:41:19 Only Test Chao 350.1.13.10 [place] 4.2.7.2.686 [place] [id number] [facility] 2020-06-17 2020-06-17 Orders Doctor HAMMER 1.2.840.114 [id number] 00:00:00 00:00:00 Only Unassigned, KATHIE 350.1.13.10 [place] [facility] 4.2.7.2.686 [id number] 009 2020-05-06 2020-05-06 Emergency Ron, [facility] 1.2.840.114 [id number] 15:21:00 18:38:00 Grisel Chao 350.1.13.10 [place] 4.2.7.2.686 [place] [id number] 084 2020-05-04 2020-05-04 Laboratory Lab, [facility] 1.2.840.114 [id number] 08:54:13 09:14:13 Only Fam Pob I Health 350.1.13.10 [place] 4.2.7.2.686 Professio [id number] [place] [address] 2020-04-14 2020-04-14 Letter Jeannie Slade 1.2.840.114 [id number] 00:00:00 00:00:00 (Out) KATHIE 350.1.13.10 [facility] 4.2.7.2.686 [id number] [id number] 2020-03-25 2020-03-26 Emergency [facility], [facility] [id number] [id number] 21:13:00 02:01:00 Gabriele Goodman Chao 350.1.13.10 [place] 4.2.7.2.686 [place] [id number] 084 2020-03-18 2020-03-18 Orders Doctor HAMMER 1.2.840.114 [id number] 00:00:00 00:00:00 Only Unassigned, KATHIE 350.1.13.10 [place] [facility] 4.2.7.2.686 [id number] 009 2020-03-08 2020-03-08 Outpatient [facility] [id number] [facility] 2020-03-07 2020-03-07 Outpatient [facility] [id number] [facility] 2020-01-31 2020-02-08 [facility] Farshad Ramirez [facility] 1.2.840.1 [id number] 10:39:00 16:12:00 Encounter Grisel Ron [facility] 350.1.13.10 [place] 4.2.7.2.[address] [facility] [phone] [place] [address] ([facility]) 2020-01-11 2020-01-11 [facility] [id number] 2020-01-06 2020-01-06 [facility] [id number] [facility] 2019-12-18 2019-12-18 Emergency [facility] [id number] 15:26:00 19:16:00 Meka Guidry 350.1.13.10 [place] 4.2.7.2.686 [place] [address] [id number] 2019-10-06 2019-10-06 [facility] [id number] 10:40:00 10:40:[address] [place] [address] [facility] [address] - Drive [facility] l Medicine Outpati ent Clinics 2019-09-17 2019-09-17 [facility] [id number] 10:24:00 10:24:00 [place] [address] Luke [address] - Drive [facility] Medicine l Medicine Outpati ent Clinics 2019-08-21 2019-08-21 Emergency [facility] 1.2.029.139 [id number] 19:42:19 23:51:00 Gabriele Guidry 350.1.13.10 [place] 4.2.7.2.686 [place] [address] [id number] 084 2019-07-14 2019-07-14 [facility] [id number] 15:00:00 15:00:00 [place] [address] Luke [address] - Drive [facility] Medicine l Medicine Outpati ent Clinics 2019-06-25 2019-06-25 Emergency [facility] 1.2.840.114 [id number] 16:52:11 20:04:00 Grisel Guidry 350.1.13.10 [place] 4.2.7.2.686 [place] [id number] 084 2019-06-19 2019-06-19 Emergency Natalia, [facility] 1.2.499.840 [id number] 13:58:11 19:09:00 Skyler Guidry 350.1.13.10 [place] 4.2.7.2.686 [place] [id number] [id number] 2019-06-19 2019-06-19 Orders Doctor JAQUELIN 1.2.840.114 [id number] 00:00:00 00:00:00 Only Unassigned, KATHIE 350.1.13.10 [place] [facility] 4.2.7.2.686 [id number] [id number] 2019-05-19 2019-05-19 Emergency Chavarria, [facility] [id number] 18:29:04 21:26:00 Gary Guidry 350.1.13.10 [place] 4.2.7.2.686 [place] [id number] [id number] 2019-03-02 2019-03-02 [facility] [id number] 10:40:00 10:40:00 Mixx Adwanted [facility] 2019-02-04 2019-02-04 [facility] [id number] 10:55:00 10:55:00 Mixx Adwanted [facility] 2018-12-24 2018-12-24 Telephone [facility] 1.2.840.114 [id number] 00:00:00 00:00:00 [facility] 350.1.13.10 Surgical 4.2.7.2.686 [facility] [id number] hazel Guidry 2018-10-07 2018-10-07 [facility] [id number] 11:00:00 11:00:00 t [employer]ash[employer] s [facility] 2018-07-28 2018-07-28 [facility] [id number] [facility] 09:57:00 09:57:00 t Mixx Bear s [facility] 2018-07-25 2018-07-25 [facility] [id number] [facility] 14:40:00 14:40:00 t Mixx Bear s [facility] Results Test Description Test Time Test Comments Results Result Comments Source Culture, Urine 2017-08-07 15:57:00 Test Item Value Reference Range Interpretation Comme nts Culture, Urine (test code = URC) NF Culture, Urine (test code = URC1) 10 NSF * This is a n EDITED result. * A prior result th at was reported as final has been change d. [id number] 22:53:00 Test Item Value Reference Range Interpretation [...] = UACAST) CAST LPF Urine Source: Urine [id number] SURGICAL PATHOLOGY, LEVEL [id number] 14:31:00 [place] [address] Laboratory Printed: 07/09/[address] [place] [address] DAEMPathology Page: 1 Patient: ZEKE ROMERO Birthdate: 1960 Age/Sex: 56/F Spec#: [id number]: HERMES SALAZAR Specimen Date: 07/08/17 [...] few neutrophils. Pathologist:Kelvin Conway Entered by:07/09/17 - 143 RUPAL PROCEDURES: 44402,21986/4 Patient: ZEKE ROMERO Re07/03/17Loc: T4-A MR#: [id number] CONTINUED ON NEXT PAGE Dis: 07/09/17ta: DIS IN - [address] [address] Laboratory Printed: 07/09/17 [facility]9 [facility] DAEMPathology Page: 2 Patient: ZEKE ROMERO [id number] (Continued) GROSS DESCRIPTION A. LIVER BIOPSY LEFT [...] by: DANII SHAHID Entered by:07/08/17 - 1316 [facility].Y MICROSCOPIC DESCRIPTION A microscopic examination was performed to arrive at the diagnostic conclusion reported. Signed ___ ____(Electronically Signed) Kelvin 07/09/17 Patient: ZEKE ROMERO Re07/03/17Loc: T4-A MR#: [id number] END OF REPORT Dis: 07/09/17ta: DIS [id number] 05:13:00 Test Item Value Reference Range Interpretation [...] U/L 8-55 H = ALT) Reference Lab [id number] 04:14:00 Test Item Value Reference Range Interpretation Comments Reference Lab 10 U/mL 0-35 Laurent ECLIA Testing (test code methodolo gyPerformed at: HD = CA199) - [facility] Alesia mb[address] [facility] CenterBill jin, [place] [id number] Di aimee: Chico Suero MD, Phone : [phone] Reference Lab [id number] 16:14:00 Test Item Value Reference Range Interpretation Comments Reference Lab Testing 128.5 Units 0.0-20.0 H (test code = MARLON) Negative 0.0 - 20.0 Equivocal 20.1 - 24.9 Positive >24.9Mitochondr ial (M2) Antibodies are found in 90-96% ofpatients with primary biliary cirrhosis.Perfo rmed at: [facility] rp [address] [place], [place] [id number] Director: Pj Rider MD, [facility] ne: [phone] Reference Lab [id number] 16:14:00 Test Item Value Reference Range Interpretation [...] testing of p ositive sera with both CT-3 and MPO-ANCA enzyme immunoassays. A s many as 5% serumsamples are positive only b y EIA. Ref. AM J Clin Nbpzqn1935;111: 507-513. Reference Lab <1:20 titer Neg:<1:20 The atypical p ANCA pattern Testing (test has been obser chelita in code = ATANCA) asignificant percentage of patients with u lcerative colitis,primary sclerosing cholangitis and autoimmune hepatitis.Perfo rmed at: [facility] [address] [id number] Di aimee: Chester ramírez MD, Phone: [phone] [id number] 05:12:00 Test Item Value Reference Range Interpretation [...] 8-55 H code = ALT) Reference Lab [id number] 22:07:00 Test Item Value Reference Range Interpretation Comments Reference Lab Testing 785 IU/L 39-117 H (test code = ISOALKT) Reference Lab Testing 25 % 14-68 (test code = ISOALKBT) Reference Lab Testing 74 % 18-85 (test code = ISOALKLT) Reference Lab Testing 1 % 0-18 Perfor med at: HD - (test code = ISOALKIT) [facility] [place], [place] [id number] b Director: Chico Suero MD, Phone: [phone] [facility] at: [facility] [id number] Di aimee: Chester ramírez MD, Phone: [phone] [id number] 11:48:00 Test Item Value Reference Range Interpretation [...] code = ALT) 92 U/L 8-55 H [id number] 06:08:00 Test Item Value Reference Range Interpretation [...] 8.5 mg/dL 7.8-10.44 N code = CA) Fvfjstkro2964-43-83 06:06:00 Test Item Value Reference Range Interpretation [...] code = ALT) 129 U/L 8-55 H Lyvngiscle5000-04-00 05:57:00 Test Item Value Reference Range Interpretation [...] code = BASO#) 0.0 thou/uL 0.0-0.2 N Eikeimtcbts0045-39-61 05:55:00 Test Item Value Reference Range Interpretation [...] - 4. 0 CRITICAL: > 4.0 Anticoagulant? GMUMQelncrbqb8544-14-38 05:36:00 Test Item Value Reference Range Interpretation [...] 8.9 mg/dL 7.8-10.44 N code = CA) Aivtaivmu1994-91-43 05:33:00 Test Item Value Reference Range Interpretation [...] code = ALT) 160 U/L 8-55 H Mtcvuqmdnb8964-64-22 05:28:00 Test Item Value Reference Range Interpretation [...] 0.1 thou/uL 0.0-0.2 N Chemistry - Elizabeth Ytlejva1570-44-68 13:02:00 Test Item Value Reference Range Interpretation [...] hod: Enzyme Linked Fluorescent Immunoassay (Elizabeth)Reference s: KnowablediObviousidea AB Elizabeth Package Inserts - Directions forU se, June,August 02, SDI-Solution ic. Bxildqgqf2045-25-84 05:00:00 Test Item Value Reference Range Interpretation [...] code = ALT) 144 U/L 8-55 H Ujrciknpx9392-44-49 04:50:00 Test Item Value Reference Range Interpretation [...] 8.4 mg/dL 7.8-10.44 N code = CA) Qhwwugqrpy8244-36-81 04:39:00 Test Item Value Reference Range Interpretation [...] code = BASO#) 0.0 thou/uL 0.0-0.2 N Zukebkttc1543-92-56 17:07:00 Test Item Value Reference Range Interpretation Comments Chemistry (test code = IGG) 1032.00 mg/dL 552-1631 N Khovxlufk8936-14-88 17:07:00 Test Item Value Reference Range Interpretation Comments Chemistry (test code = IGM) 215.00 mg/dL 33-293 N Knrfmobuwa6608-85-22 00:50:00 Test Item Value Reference Range Interpretation [...] UABLD) Urine Source: Urine Clean CatchChemistry - Wbhqthyr6232-21-25 00:25:00 Test Item Value Reference Range Interpretation Comments Chemistry - Specials (test Non-Reactive NonReactive code = THEPAIGM) Chemistry - Specials (test Non-Reactive S/CO NonReactive code = THBSAG) Chemistry - Specials (test Non-Reactive NonReactive code = INTHBCM) Chemistry - Specials (test Non-Reactive NonReactive code = INTHEPC) Lloisqcnd5670-12-16 22:12:00 Test Item Value Reference Range Interpretation [...] code 196 U/L 8-55 H = ALT) Brvlayyjm8865-44-04 22:12:00 Test Item Value Reference Range Interpretation Comments Chemistry (test code = LIP) 22 U/L 8-78 N Rfiojbdvag8272-79-07 21:50:00 Test Item Value Reference Range Interpretation [...] code = BASO#) 0.1 thou/uL 0.0-0.2 N Wvnfureef0135-56-81 22:49:00 Test Item Value Reference Range Interpretation [...] 78 U/L 8-55 H code = ALT) Dtyhedqqf3104-58-05 22:49:00 Test Item Value Reference Range Interpretation Comments Chemistry (test code = LIP) 12 U/L 8-78 N Ybminoehzb3091-75-12 22:24:00 Test Item Value Reference Range Interpretation [...] code = BASO#) 0.0 thou/uL 0.0-0.2 N Ahtheosdtj6342-63-76 22:00:00 Test Item Value Reference Range Interpretation [...] UABLD) Negative Negative Urine Source: Urine Clean DcvmxFjbaoztu5468-66-45 09:28:00 Test Item Value Reference Range Interpretation Comments Accuchek (test code = ACU) 99 mg/dL 70-110 N Noaphlrnhz5819-35-75 09:14:00 Test Item Value Reference Range Interpretation [...] UABLD) Negative Negative Urine Source: Urine Clean GxsmdLfyhfqjfdv2664-43-17 21:28:00 Test Item Value Reference Range Interpretation [...] UABLD) Negative Negative Urine Source: Urine Clean WqkvmSfhddfpbr2215-89-70 21:09:00 Test Item Value Reference Range Interpretation [...] 95 U/L 8-55 H code = ALT) Lvdtgpwod9286-82-80 21:09:00 Test Item Value Reference Range Interpretation Comments Chemistry (test code = LIP) 39 U/L 8-78 N Yzffklsork3118-10-21 20:49:00 Test Item Value Reference Range Interpretation [...] code = BASO#) 0.0 thou/uL 0.0-0.2 N Smurfyqfyh6777-61-98 21:34:00 Test Item Value Reference Range Interpretation [...] Presu mptive positive urines are held fortwo [place]. Urine Source: Urine Clean DisrjHxiznrjsfr0283-29-64 19:17:00 Test Item Value Reference Range Interpretation [...] = UABLD) Negative Negative Urine Source: Urine ErmvotEzvunnkpo1130-11-26 18:48:00 Test Item Value Reference Range Interpretation [...] code 84 U/L 8-55 H = ALT) Evrxrdjqz9995-46-94 18:48:00 Test Item Value Reference Range Interpretation Comments Chemistry (test code = JORGE) 53.0 U/L 25-125 N Veorybzlv0465-54-47 18:48:00 Test Item Value Reference Range Interpretation Comments Chemistry (test code = LIP) 10 U/L 8-78 N Jnigpuczzn4124-79-80 18:19:00 Test Item Value Reference Range Interpretation [...] = BASO#) 0.1 thou/uL 0.0-0.2 N Culture, Kiirp4364-80-28 10:22:00 Test Item Value Reference Range Interpretation Comments Culture, Urine (test code = URC) NF N Culture, Urine (test code = URC1) 10 MSF N Qorghtuhl0664-02-93 17:38:00 Test Item Value Reference Range Interpretation Comments Chemistry (test code = PHOS) 2.9 mg/dL 2.3-4.7 N Ypefrvluq0578-97-78 17:04:00 Test Item Value Reference Range Interpretation [...] H = ALT) Chemistry - BNP, HgbA1c, MCGh2979-20-67 17:04:00 Test Item Value Reference Range Interpretation Comments Chemistry - BNP, 4.9 % 4.0-6.0 N Therapeutic goals for glycemic HgbA1c, PTHi (test control ( ADA)Adults:- Goal of code = GZSJ7TA) therapy: Les s than 7.0% HbA1c- Action suggeste d: Greater than 8.0% RsX4zTeiky tric patients:- Toddlers and pr eschoolers: Less than 8.5% (but Greater than 7.5%)- Katelynn ool age (6-12 years): Less th an 8%- Adolescents and young adults (13-19 years): Less than 7.5%Diagnosing diabetes (ADA)- HbA1c: Greater than or equal to 6.5% Values of 5.7 - 6.4% indicate HIGH risk for developing DiabetesInterna tional Expert Committee Repor t on the Role of the P4HBqmjw in the Diagnosis of Di abetes. Diabetes Care 2009July;32(7): 1327-1334ADA, Diagnosis cla ssification of diabetes mellit us.Diabetes Care 2010; 33 S uppl 1:S62 Vixdbidnf6414-82-94 16:59:00 Test Item Value Reference Range Interpretation Comments Chemistry (test code = CRP) 1.16 mg/dL = or < 0.5 H What test does the doctor want? C-REACTIVE PROTEIN (CRP)Cxtswqlvfa6147-40-64 16:53:00 Test Item Value Reference Range Interpretation [...] HPF None Seen Urine Source: Urine Clean GrpaxMwyrqksdaf9710-90-25 16:46:00 Test Item Value Reference Range Interpretation [...] code = BASO#) 0.1 thou/uL 0.0-0.2 N Giqrqfthjw9996-35-57 21:59:00 Test Item Value Reference Range Interpretation [...] Urine Clean CatchSepsis - Lactic Acid >2 Poqy8160-75-27 23:59:00 Test Item Value Reference Range Interpretation Comments Sepsis - Lactic Additional Lactate testin g will be Acid >2 Rflx performed in 3 hrs (test code = according to [facility] CQVZX7I) SepsisProtocol. Yhkjjwkgh4732-73-81 21:12:00 Test Item Value Reference Range Interpretation Comments Chemistry (test code = JORGE) 59.0 U/L 25-125 N Hryuvvtde1658-09-66 20:59:00 Test Item Value Reference Range Interpretation [...] 87 U/L 8-55 H code = ALT) Bpjomibhu8407-27-44 20:59:00 Test Item Value Reference Range Interpretation Comments Chemistry (test code = LIP) 32 U/L 8-78 N Chemistry - Ogkdahi1777-23-84 20:59:00 Test Item Value Reference Range Interpretation Comments Chemistry - Lactate (test code = 2.1 mmol/L 0.5-2.2 N LACTSEP-T) Thsnllvcdn5617-13-63 20:43:00 Test Item Value Reference Range Interpretation [...] = UABLD) Negative Negative Urine Source: Urine NsctwlKqxdydnijw6972-07-76 20:37:00 Test Item Value Reference Range Interpretation [...]
[2020-07-10 08:05] LABS: Absolute Lymphocytes (CBC) 1.3 K/uL (0.7-4.9); Basophils % 0.4 % (0-1.3); Hematocrit 33.2 % (36.0-45.0); Lymphocytes % 14.7 % (15.3-44.8); MPV 7.9 fL (7.6-11.3); RBC Red Blood Cell Count 3.77 M/uL (3.86-4.86)
[2020-07-10] MEDS ORDERED: ONDANSETRON 4 MG/2 ML VIAL ONE (08:17)
[2020-07-10] MEDS ORDERED: MEPERIDINE HCL 50 MG/ML ONE (08:17)
[2020-07-10 09:01] LABS: AST/SGOT 215 U/L (15-37); Albumin 3.5 g/dL (3.4-5.0); Alkaline Phosphatase 1101 U/L (45-117); BUN Blood Urea Nitrogen 17 mg/dL (7-18); Bicarbonate 24 mmol/L (21-32); Bilirubin Direct 0.4 mg/dL (0-0.2); Bilirubin Total 0.7 mg/dL (0.2-1.0); Glucose Level 99 mg/dL (74-106); Lipase 321 U/L (73-393); Potassium 4.3 mmol/L (3.5-5.1); Protein, Total 8.6 g/dL (6.4-8.2); Sodium Level 137 mmol/L (136-145)
[2020-07-10 09:03] LABS: ALT/SGPT 413 U/L (12-78)
--- NOTE | 2020-07-10 09:07 | ER ---
Nurse's Notes [facility] Name: Yessenia Aleman Age: 59 yrs Sex: Female : 1960 Arrival Date: 07/10/2020 Time: 07:35 Bed 6 Private MD: Diagnosis: Upper abdominal pain, unspecified;Unspecified cirrhosis of liver Presentation: 07/10 07:42 Chief complaint: Patient states: headache, abd pain, back pain, n/v x 3 days. sv Coronavirus screen: Client denies travel out of the [place] in the last 14 days. Client presents with at least one sign or symptom that may indicate coronavirus-19. Standard/surgical mask placed on the client. Provider contacted for isolation considerations. Ebola Screen: No symptoms or risks identified at this time. Initial Sepsis Screen: Does the patient meet any 2 criteria? No. Patient's initial sepsis screen is negative. Does the patient have a suspected source of infection? No. Patient's initial sepsis screen is negative. Risk Assessment: Do you want to hurt yourself or someone else? Patient reports no desire to harm self or others. Onset of symptoms was June 2020. 07:42 Method Of Arrival: Ambulatory sv 07:42 Acuity: HOLLI 2 sv Triage Assessment: 09:11 General: Appears Behavior is. ca1 Historical: - Allergies: 07:44 Codeine; sv - PMHx: 07:44 Anxiety; Arthritis; biliary chirrosis; biliary disease; CHF; Chronic Pancreatitis; sv Cirrhosis; Hypertension; Pancreatitis; Pneumonia; - PSHx: 07:44 Cholecystectomy; Appendectomy; Bile duct stent; sv - Immunization history:: Client reports receiving the 1st dose of the Covid vaccine. - Social history:: Smoking status: . - Family history:: not pertinent. - Hospitalizations: : No recent hospitalization is reported. Screenin:46 Abuse screen: Denies threats or abuse. Denies injuries from another. Nutritional ca1 screening: No deficits noted. Tuberculosis screening: No symptoms or risk factors identified. Fall Risk IV access (20 points). Assessment: 07:46 Pain: Complains of pain in right upper quadrant Pain radiates to right mid back Pain ca1 currently is 7 out of 10 on a pain scale. Quality of pain is described as stabbing, Pain began 2-3 days ago. Is intermittent. Neuro: Level of Consciousness is awake, alert, obeys commands, Oriented to person, place, time, situation. Cardiovascular: Heart tones S1 S2 present Capillary refill < 3 seconds Patient's skin is warm and dry. Respiratory: Airway is patent Respiratory effort is even, unlabored, Respiratory pattern is regular, symmetrical, Breath sounds are clear bilaterally. GI: Abdomen is round non-distended, Bowel sounds present X 4 quads. Abd is soft X 4 quads Abdomen is tender to palpation in right upper quadrant Reports nausea, vomiting. : No signs and/or symptoms were reported regarding the genitourinary system. EENT: No signs and/or symptoms were reported regarding the EENT system. Derm: Skin is intact, is healthy with good turgor, Skin is pink, warm \T\ dry. Musculoskeletal: Circulation, motion, and sensation intact. Capillary refill < 3 seconds. 08:45 Reassessment: Patient appears in no apparent distress at this time. Patient and/or ca1 family updated on plan of care and expected duration. Pain level reassessed. Patient is alert, oriented x 3, equal unlabored respirations, skin warm/dry/pink. 09:22 Reassessment: Patient appears in no apparent distress at this time. Patient and/or ca1 family updated on plan of care and expected duration. Pain level reassessed. Patient is alert, oriented x 3, equal unlabored respirations, skin warm/dry/pink. Vital Signs: 07:42 BP 144 / 111; Pulse 65; Resp 20; Temp 97.7; Pulse Ox 100% ; Pain 8/10; sv 07:48 BP 134 / 76; ca1 08:45 BP 120 / 71; Pulse 63; Resp 18 S; Pulse Ox 100% on R/A; ca1 09:22 BP 120 / 78; Pulse 64; Resp 18 S; Pulse Ox 100% on R/A; ca1 ED Course: 07:35 Patient arrived in ED. rg4 07:38 Meek Fitzpatrick MD is Attending Physician. rn 07:40 Samantha Rivera RN is Primary Nurse. ca1 07:43 Triage completed. sv 07:44 ED physician to see patient. sv 07:44 Arm band placed on. sv 07:46 Patient has correct armband on for positive identification. Bed in low position. Call ca1 light in reach. Side rails up X 1. Pulse ox on. NIBP on. Warm blanket given. 07:58 Initial lab(s) drawn, by me, sent to lab. Missed attempt(s): 22 gauge in right wrist. ca1 Bleeding controlled, band aid applied, catheter tip intact. 08:05 Missed attempt(s): 22 gauge in right forearm. Bleeding controlled, band aid applied, ca1 catheter tip intact. 08:10 Inserted saline lock: 24 gauge in right hand, using aseptic technique. ca1 09:23 No provider procedures requiring assistance completed. IV discontinued, intact, ca1 bleeding controlled, No redness/swelling at site. Pressure dressing applied. Administered Medications: 08:15 Drug: Zofran (Ondansetron) 4 mg Route: IVP; Site: right hand; ca1 09:15 Follow up: Response: No adverse reaction; Nausea is decreased ca1 08:17 Drug: Demerol 50 mg {Note: rass 0.} Route: IVP; Site: right hand; ca1 09:15 Follow up: Response: No adverse reaction; Pain is decreased; RASS: Alert and Calm (0) ca1 Outcome: 09:07 Discharge ordered by . rn 09:23 Discharged to home ambulatory. ca1 09:23 Condition: stable 09:23 Discharge instructions given to patient, Instructed on discharge instructions, follow up and referral plans. Demonstrated understanding of instructions, follow-up care. 09:24 Patient left the ED. ca1 Signatures: Barbie Colindres, Meek Johnson RN, MD MD rn Garcia, Rubi rg4 Samantha Rivera RN RN ca1
--- NOTE | 2020-07-10 09:07 | EDPHYS ---
Physician Documentation [facility] Name: Yessenia Aleman Age: 59 yrs Sex: Female : 1960 Arrival Date: 07/10/2020 Time: 07:35 Bed 6 Private MD: ED Physician Meek Fitzpatrick HPI: 07/10 07:47 This 59 yrs old Female presents to ER via Ambulatory with complaints of rn Abdominal Pain. 07:47 The patient presents with abdominal pain in the epigastric area. Onset: The rn symptoms/episode began/occurred at an unknown time. The symptoms do not radiate. Associated signs and symptoms: Pertinent positives: nausea and vomiting, Pertinent negatives: blood in stools, fever. Associated signs and symptoms: Pertinent negatives: shortness of breath, vomiting blood. The symptoms are described as achy, crampy. Modifying factors: The symptoms are alleviated by nothing, the symptoms are aggravated by touching the area. Severity of pain: At its worst the pain was moderate in the emergency department the pain is unchanged. The patient has experienced similar episodes in the past, chronically. Reports chronic abd pain, upper abd pain, worse over last 3 days, no fever/chest pain/sob/diarrhea/blood in stool. Reports same location and type of pain as before, but unable to get into GI due to outstanding bill. Takes hydrocodone. Came in today for pain control. . Historical: - Allergies: 07:44 Codeine; sv - PMHx: 07:44 Anxiety; Arthritis; biliary chirrosis; biliary disease; CHF; Chronic Pancreatitis; sv Cirrhosis; Hypertension; Pancreatitis; Pneumonia; - PSHx: 07:44 Cholecystectomy; Appendectomy; Bile duct stent; sv - Immunization history:: Client reports receiving the 1st dose of the Covid vaccine. - Social history:: Smoking status: . - Family history:: not pertinent. - Hospitalizations: : No recent hospitalization is reported. ROS: 07:47 Constitutional: Negative for fever, chills, and weight loss, Eyes: Negative for injury, rn pain, redness, and discharge, Neck: Negative for injury, pain, and swelling, Cardiovascular: Negative for chest pain, palpitations, and edema, Respiratory: Negative for shortness of breath, cough, wheezing, and pleuritic chest pain, Back: Negative for injury : Negative for injury, bleeding, discharge, and swelling, MS/Extremity: Negative for injury and deformity, Skin: Negative for injury, rash, and discoloration, Neuro: Negative for weakness, numbness, tingling, and seizure. 07:47 All other systems are negative. Exam: 07:47 Constitutional: This is a well developed, well nourished patient who is awake, alert, rn and in no acute distress. Ambulatory to room without difficulty. Head/Face: Normocephalic, atraumatic. Eyes: Periorbital areas with no swelling, redness, or edema. ENT: NO stridor Cardiovascular: Regular rate and rhythm. No pulse deficits. Respiratory: No increased work of breathing, no retractions or nasal flaring. Abdomen/GI: soft, mild epigastric tenderness, no rebound, no masses. No tenderness when distracted and talking about another subject. Skin: Warm, dry MS/ Extremity: Pulses equal, no cyanosis. Neurovascular intact. Full, normal range of motion. Equal circumference. Neuro: Awake and alert, GCS 15, oriented to person, place, time, and situation. Cranial nerves II-XII grossly intact. Motor strength 5/5 in all extremities. Sensory grossly intact. Cerebellar exam normal. Normal gait. Vital Signs: 07:42 BP 144 / 111; Pulse 65; Resp 20; Temp 97.7; Pulse Ox 100% ; Pain 8/10; sv 07:48 BP 134 / 76; ca1 08:45 BP 120 / 71; Pulse 63; Resp 18 S; Pulse Ox 100% on R/A; ca1 09:22 BP 120 / 78; Pulse 64; Resp 18 S; Pulse Ox 100% on R/A; ca1 MDM: 07:38 Patient medically screened. rn 09:05 Differential diagnosis: gastritis, gastroesophageal reflux disease, non-specific abd rn pain, worsening biliary disease, cirrhosis. Data reviewed: vital signs, nurses notes, old medical records, lab test result(s), and as a result, I will discharge patient. Counseling: I had a detailed discussion with the patient and/or guardian regarding: the historical points, exam findings, and any diagnostic results supporting the discharge/admit diagnosis, lab results, the need for outpatient follow up, to return to the emergency department if symptoms worsen or persist or if there are any questions or concerns that arise at home. Response to treatment: the patient's symptoms have mildly improved after treatment, and as a result, I will discharge patient. Special discussion: I discussed with the patient/guardian in detail that at this point there is no indication for admission to the hospital. It is understood, however, that if the symptoms persist or worsen the patient needs to return immediately for re-evaluation. ED course: No acute changes in bloodwork, stable vitals, knows needs to f/u with her GI doctor for further care. NO indication for emergent imaging at this point without gross changes in blood and patient states chronic pain slowly worsening. . 07/10 07:46 Order name: Basic Metabolic Panel; Complete Time: 09:05 rn 07/10 07:46 Order name: CBC with Diff; Complete Time: 08:31 rn 07/10 07:46 Order name: Hepatic Function; Complete Time: 09:05 rn 07/10 07:46 Order name: Lipase; Complete Time: 09:05 rn 07/10 07:46 Order name: IV Saline Lock; Complete Time: 08:21 rn 07/10 07:46 Order name: Labs collected and sent; Complete Time: 07:59 rn Administered Medications: 08:15 Drug: Zofran (Ondansetron) 4 mg Route: IVP; Site: right hand; ca1 09:15 Follow up: Response: No adverse reaction; Nausea is decreased ca1 08:17 Drug: Demerol 50 mg {Note: rass 0.} Route: IVP; Site: right hand; ca1 09:15 Follow up: Response: No adverse reaction; Pain is decreased; RASS: Alert and Calm (0) ca1 Disposition: 07/10/20 09:07 Discharged to Home. Impression: Upper abdominal pain, unspecified, Unspecified cirrhosis of liver. - Condition is Stable. - Discharge Instructions: Abdominal Pain, Adult. - Medication Reconciliation Form, Thank You Letter, Antibiotic Education, Prescription Opioid Use form. - Follow up: Private Physician; When: As needed; Reason: Recheck today's complaints, Re-evaluation by your physician. - Problem is chronic. - Symptoms have improved. Signatures: Dispatcher [employer] Barbie Garcia RN RN sv Meek Fitzpatrick MD MD rn Acob, LUCIUS Singh RN ca1 Corrections: (The following items were deleted from the chart) 07:52 07:47 Constitutional: This is a well developed, well nourished patient who is awake, rn alert, and in no acute distress. Ambulatory to room without difficulty. Head/Face: Normocephalic, atraumatic. Cardiovascular: Regular rate and rhythm. No pulse deficits. Respiratory: No increased work of breathing, no retractions or nasal flaring. Abdomen/GI: soft, mild epigastric tenderness, no rebound, no masses. No tenderness when distracted and talking about another subject. Skin: Warm, dry MS/ Extremity: Pulses equal, no cyanosis. Neurovascular intact. Full, normal range of motion. Equal circumference. Neuro: Awake and alert, GCS 15, oriented to person, place, time, and situation. Cranial nerves II-XII grossly intact. Motor strength 5/5 in all extremities. Sensory grossly intact. Cerebellar exam normal. Normal gait. rn 09:24 09:07 07/10/2020 09:07 Discharged to Home. Impression: Upper abdominal pain, ca1 unspecified; Unspecified cirrhosis of liver. Condition is Stable. Forms are Medication Reconciliation Form, Thank You Letter, Antibiotic Education, Prescription Opioid Use. Follow up: Private Physician; When: As needed; Reason: Recheck today's complaints, Re-evaluation by your physician. Problem is chronic. Symptoms have improved. rn
[2020-07-10 09:29] VITALS: TEMP 97.7; O2SAT 100
[2020-07-10 09:32] VITALS: BP 120/78
== END 2020-07-10 09:24 | disposition home or self-care (01) ==
LOC: ER 07:33
DX: K74.60 Unspecified cirrhosis of liver (principal); I10 Essential (primary) hypertension; Z88.5 Allergy status to narcotic agent
CPT/HCPCS: 85025; 80048; 36415; 80076; 83690; J2175; J2405; 96374; 96375; 99284

== ENCOUNTER 2020-08-25 17:23 | Emergency (ER) | payer OTHER ==
--- OUTSIDE RECORDS SUMMARY | 2020-08-25 17:29 | XMS REPORT | Continuity of Care Document ---
:1960 Author Organization [facility] t Address [facility] [place] [address] Care Team Providers Name Role Phone Prezas Primary Care Physician Christopher Montenegro DO Attending Clinician Keira WEBSTER S Attending Clinician Sydnie Llamas Attending Clinician Doctor Unassigned, Name Attending Clinician Unavailable Only, Test Attending Clinician Unavailable Sumit MA Attending Clinician Rayray Ayala MD Attending Clinician Pob, Lab Main Attending Clinician Unavailable Asaf PERRIN Attending Clinician Lab, Fam Pob I Attending Clinician Unavailable Guerline Slade Attending Clinician Kenan WEBSTER, Maxine Attending Clinician James WEBSTER Attending Clinician Micaela WEBSTER Attending Clinician Mazin WEBSTER Attending Clinician Sonya HALL, G Attending Clinician Won Fisher MD Attending Clinician Singer CANALES Attending Clinician Christina WEBSTER, Obdulia Attending Clinician RAFAEL Mai-C Attending Clinician Unavailable Haley Cox Attending Clinician Unavailable PROVIDER, TEMHaley Attending Clinician Unavailable RADU Attending Clinician Unavailable To Attending Clinician Unavailable KRIS Attending Clinician Unavailable Bia CASTILLO Attending Clinician Unavailable Keira WEBSTER, S Admitting Clinician Diego Grigsby MD Admitting Clinician Haley Cox Admitting Clinician Unavailable Problems Condition Condition Condition Status Onset Resolution Last Treating Co mments Source Name Details Category Date Date Treatment Clinician Date Abdominal Abdominal Disease Active [facility] 08-[facility], acute, 00:00: Medical right right 00 Center upper upper quadrant quadrant Hypokalemi Hypokalemi Disease Active [facility] - [facility] - 00:[facility]: Medical 00 [place] Chronic Chronic Disease Active [facility] pain pain 11-08 [facility] - syndrome syndrome 00:00: Medica l 00 Center Hypokalemi Hypokalemi Disease Active [facility] c periodic c periodic 11-08 Shari kes - paralysis paralysis 00:00: Medi brandy 00 Center Biliary Biliary Disease Active [facility] disease disease -16 [facility] - 00:[facility]: Medical 00 Center Abdominal Abdominal Disease Active [facility] pain, pain, 08-21 [facility] - other other 00:00: Medical specified specified 00 Cent er site site Cirrhosis, Cirrhosis, Disease Active [facility] primary primary - [facility] - biliary biliary 00:00: Medical 00 Center Pancreatit Pancreatit Disease Active [facility] is is 5- [facility] - 00:[facility]: Medical 00 [place] Chronic Chronic Disease Active 2012-[address] [facility] pancreatit pancreatit 1-14 Shari kes - is is 00:00: Medical 00 [place] 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 04-22 [facility] - 00:[facility]: Medical 00 Center Elevated Elevated Disease Active 2012-04 [facility] liver liver 04-22 [facility] - enzymes enzymes 00:00: Medical 00 [place] Hypertensi Hypertensi Disease Active 2012-[address] on on 04-22 [facility] - 00:[facility]: Medical 00 Center Nausea & Nausea & Disease Active 2012-[facility] vomiting vomiting 04-22 [facility] 00 Center Fatty Fatty Disease Active 2012-[address] [facility] [address] liver liver 04-22 [facility] - 00:00: Medical 00 [place] Alcohol Alcohol Disease Active 2012-[address] [facility] [address] use use 04-22 [facility] - 00:00: Medical 00 [place] Immunity Immunity Disease Active 2012-04 [facility] status status 04-22 [facility] - testing testing 00:00: Medical 00 [place] Abdominal Abdominal Disease Active 2012-[address] [facility] [address] pain pain 04-22 [facility] - 00:00: Medical 00 [place] Allergies, Adverse Reactions, Alerts Allergy Allergy Status Severity Reaction(s) Onset Inactive Treating Comm ents Source Name Type Date Date Clinician Codeine Drug Active Rash 2012-[address] [facility] Allergy 0-30 [facility] - 00:[facility]: Medical 00 [place] Family History Family Member Diagnosis Comments Start Date Stop Date Source Natural brother Cancer [facility] Social History Social Habit Start Date Stop Date Quantity Comments Source Sex Assigned At [facility] Alcohol intake 2020-08-18 2020-08-18 Current [facility] - 00:00:00 00:00:00 non-drinker of Medical Ce nter alcohol (finding) Smoking Status Start Date Stop Date Source Never smoker [facility] edical [place] Medications Ordered Filled Start Stop Current Ordering Indication Dosage Frequency Signature Comments Components Source Medication Medication Date Date Medication? Clinician (SIG) Name Name Chlorhexidi Chlorhexidi 2019-0 2020- No Na Slade 15 [facility] ne ne 10-0530 swish and [facility] - Gluconate Gluconate 00:00: 00:00 spit Me moria 00 :00 l Outpati ent Clinics QUEtiapine Yes 150mg QD Take [address] (SEROQUEL) 8-10 mg by [facility] - 100 MG 09:58: mouth Medical tablet 18 nightly. Center promethazin Yes 25mg Take [address] [facility] e 8-10 by mouth [facility] - (PHENERGAN) 09:58: every 6 Med ical 25 MG 18 (six) Center tablet hours as needed for Nausea. ALPRAZolam Yes 1mg [id number] Take [address] [facility] (XANAX) 1 8-10 [id number] by mouth 3 [facility] - MG tablet 09:58: 3D (three) Medic al 18 times Center daily Dose and frequency confirmed and verified with the patient. . HYDROcodone Yes 1{tbl} Take [address] -acetaminop 8-10 tablet by Sammy contreras (NORCO 09:58: mouth 2 Medi brandy 10-325) 18 (two) Center 10-325 mg times per tablet daily as needed for Pain. gabapentin Yes 600mg Take [address] (NEURONTIN) 8-10 mg by [facility] - 600 MG 09:58: mouth once Medic al tablet 18 at Center bedtime. escitalopra Yes anxiety 10mg QD Take [address] m oxalate 8-10 with by mouth [facility] - (LEXAPRO) 09:58: depression daily. Medical 10 MG 18 Center tablet Losartan Losartan Yes Na Slade [address] [facility] Potassium Potassium [facility] Lexapro Lexapro Yes Na Slade [address] [facility] Seroquel XR Seroquel XR Yes Na Slade [address] [facility] in the [facility] Phenergan Phenergan Yes Na Slade [...] Memoria EVERY DAY l Outpati ent Clinics Immunizations Ordered Immunization Filled Immunization Date Status Commen ts Source Name Name Influenza TIV (IM) 2013-02-[address] [facility] Procedures This patient has no known procedures. Encounters Start End Encounter Admission Attending Care Care Encounter Source Date/Time Date/Time Type Type Clinicians Facility Department ID 2020-08-05 2020-08-05 Emergency [facility] 1.2.840.114 [id number] 08:16:00 09:12:00 Maru Guidry [id number] [place] 4.2.7.2.686 [place] [id number] 084 2020-07-18 2020-07-18 [facility] 1.2.840.114 [id number] 06:28:00 08:29:00 Encounter Moise Goodman Chao [id number] [place] 4.2.7.2.686 Surgical [id number] [place] 071 2020-07-18 2020-07-18 Surgery [facility] 1.2.840.114 [id number] 07:30:00 08:00:00 Chao [id number] [place] 4.2.7.2.686 Surgical [id number] [place] 020 2020-07-07 2020-07-07 Emergency Jaki Polanco [facility] 1.2.840.114 [id number] 18:47:00 22:05:00 Sydnie Guidry [id number] [place] 4.2.7.2.686 [place] [id number] 084 2020-07-07 2020-07-07 Outpatient [facility] [id number] [facility] 2020-07-07 2020-07-07 Orders Doctor JAQUELIN 1.2.840.114 [id number] 00:00:00 00:00:00 Only Unassigned, KATHIE [id number] [place] [address]686 [id number] 009 2020-07-04 2020-07-04 [facility] 1.2.840.114 [id number] 06:30:00 08:44:00 Encounter Moise Goodman Chao [id number] [place] 4.2.7.2.686 [facility] [id number] [place] [address] 2020-07-04 2020-07-04 Orders Doctor JAQUELIN 1.2.840.114 [id number] 00:00:00 00:00:00 Only Unassigned, KATHIE 350.1.13.[address] [place]2.7.2.686 [id number] 009 2020-07-01 2020-07-01 Laboratory Only, [facility] 1.2.840.114 [id number] 09:02:10 09:17:10 Only Test [place] [id number] [place] 4.2.7.2.686 [place] [id number] [facility] 2020-07-01 2020-07-01 Orders Doctor HAMMER 1.2.840.114 [id number] 00:00:00 00:00:00 Only Unassigned, KATHIE 350.1.13.[address].686 [id number] 009 2020-06-30 2020-06-30 [id number] 2020-06-22 2020-06-[id number] 2020-06-20 2020-06-20 [facility] 1.2.840.114 [id number] 06:29:00 08:58:00 Encounter Moise Goodman Chao [id number] [place] 4.2.7.2.686 Surgical [id number] [place] 071 2020-06-20 2020-06-20 Anesthesia Abe Arana [facility] 1.2.840.11 [id number] 08:03:00 08:12:00 Event Dominguez Seo Chao 350.1.13.10 [place] 4.2.7.2.686 Surgical [id number] [place] 020 2020-06-20 2020-06-20 Orders Doctor JAQUELIN 1.2.840.114 [id number] 00:00:00 00:00:00 Only Unassigned, KATHIE 350.1.13.10 [place] [address]686 [id number] 009 2020-06-17 2020-06-17 Blending Supervisor Elizabeth, [facility] 1.2.840.114 [id number] 15:27:53 15:42:53 Visit Lab Main Chao 350.1.13.10 [place] 4.2.7.2.686 [facility] [id number] [address] 2020-06-17 2020-06-17 Laboratory Only, [facility] 1.2.840.114 [id number] 15:26:19 15:41:19 Only Test [place] 350.1.13.10 [place] 4.2.7.2.686 [place] [id number] 2020-06-17 2020-06-17 Orders Doctor HAMMER 1.2.840.114 [id number] 00:00:00 00:00:00 Only Unassigned, KATHIE 350.1.13.10 [place] [address]686 [id number] 009 2020-05-06 2020-05-06 Emergency Ron, [facility] 1.2.840.114 [id number] 15:21:00 18:38:00 Grisel Chao 350.1.13.10 [place] 4.2.7.2.686 [place] [id number] 084 2020-05-04 2020-05-04 Laboratory Lab, [facility] 1.2.840.114 [id number] 08:54:13 09:14:13 Only Fam Pob I [facility] 350.1.13.10 [place] 4.2.7.2.686 [facility] [id number] nal [address] 2020-04-14 2020-04-14 Letter Jeannie Slade 1.2.840.114 [id number] 00:00:00 00:00:00 (Out) KATHIE 350.1.13.10 [facility] 4.2.7.2.686 [id number] 043 2020-03-25 2020-03-26 [facility] [id number] 21:13:00 02:01:00 Jessejunebay Maxine [place] 350.1.13.10 [place] 4.2.7.2.686 [place] [id number] 084 2020-03-18 2020-03-18 Orders Doctor JAQUELIN 1.2.840.114 [id number] 00:00:00 00:00:00 Only Unassigned, KATHIE 350.1.13.10 [place] [facility] 4.2.7.2.686 [id number] 009 2020-03-08 2020-03-08 Outpatient [facility] [id number] [facility] 2020-03-07 2020-03-07 Outpatient [facility] [id number] [facility] 2020-01-31 2020-02-08 [facility] 1.2.840.1 [id number] 10:39:00 16:12:00 Encounter RonGrisel [facility] 350.1.13.10 Pasha Hinojosa 4.2.7.2.686 Katheryn Retana [id number] Hospital 110 ([facility]) 2020-01-11 2020-01-11 Outpatient [facility] [id number] [facility] 2020-01-06 2020-01-06 Outpatient [facility] [id number] [facility] 2019-12-18 2019-12-18 Emergency Drever, [facility] [id number] 15:26:00 19:16:00 Meka Richey [place]ao 350.1.13.10 [place] 4.2.7.2.686 [place] [address] [id number] 084 2019-10-06 2019-10-06 [facility] [id number] 10:40:00 10:40:00 [facility] ent [facility] 2019-09-17 2019-09-17 [facility] [id number] 10:24:00 10:24:00 [facility] 2019-08-21 2019-08-21 Emergency [facility] [id number] 19:42:19 23:51:00 Gabriele Guidry 350.1.13.10 [place] 4.2.7.2.[address] [id number] 084 2019-07-14 2019-07-14 [facility] [id number] 15:00:00 15:00:00 [facility] ent [facility] 2019-06-25 2019-06-25 Emergency [facility], [address]840[address]114 [id number] 16:52:11 20:04:00 Grisel Guidry 350.1.13.10 [place] 4.2.7.2.686 [place] [address] [id number] 084 2019-06-19 2019-06-19 Emergency [facility], [facility] [id number] 13:58:11 19:09:00 Skyler Guidry 350.1.13.10 [place] 4.2.7.2.686 [place] [address] [id number] 084 2019-06-19 2019-06-19 Orders Doctor HAMMER 1.2.840.114 [id number] 00:00:00 00:00:00 Only Unassigned, KATHIE 350.1.13.10 [place] [facility] 4.2.7.2.686 [id number] [id number] 2019-05-19 2019-05-19 Emergency Singer [facility] 1.2.579.686 [id number] 18:29:04 21:26:00 Gary Guidry 350.1.13.10 [place] 42.7.2.686 [place] [id number] 084 2019-03-02 2019-03-02 [facility] [id number] 10:40:00 10:40:00 [place] [employer] [place] [facility] ent Clinics 2019-02-04 2019-02-04 [facility] [id number] 10:55:00 10:55:00 t [place] [facility] ent Clinics 2018-12-24 2018-12-24 Telephone Christina [facility] 1.2.840.114 [id number] 00:00:00 00:00:00 [facility] 350.1.13.10 [facility] 4.2.7.2.686 [facility] [id number] Obdulia Guidry 2018-10-07 2018-10-07 [facility] [id number] 11:00:00 11:00:00 [place] [employer] [place] [facility] ent Clinics 2018-07-28 2018-07-28 [facility] [id number] [facility] 09:57:00 09:57:00 [place] [employer] [place] [facility] ent Clinics 2018-07-25 2018-07-25 [facility] [id number] 14:40:00 14:40:00 [place] [employer] [place] [facility] ent Clinics Results Test Description Test Time Test Comments Results Result Comments Source Culture, Urine 2017-08-07 15:57:00 Test Item Value Reference Range Interpretation Comme nts Culture, Urine (test code = URC) NF Culture, Urine (test code = URC1) 10 NSF * This is a n EDITED result. * A prior result th at was reported as final has been change d. [id number] 22:53:00 Test Item Value Reference Range Interpretation [...] = UACAST) CAST LPF Urine Source: Urine [id number] SURGICAL PATHOLOGY, LEVEL [id number] 14:31:00 [place] [address] [place] [address] Laboratory Printed: 07/09/[address] [place] [address] DAEMPathology Page: 1 Patient: ZEKE ROMERO Birthdate: 1960 Age/Sex: 56/F Spec#: [id number]: HERMES SALAZAR Specimen Date: 07/08/17 [...] Conway Entered by:07/09/17 - 143 RUPAL PROCEDURES: 21291,35812/4 Patient: ZEKE ROMERO Re07/03/17Loc: T4-A MR#: [id number] CONTINUED ON NEXT PAGE Dis: 07/09/17ta: DIS IN - [address] [address] Laboratory Printed: 07/09/[address] [place] [address] [facility] Page: 2 Patient: ZEKE ROMERO [id number] (Continued) GROSS DESCRIPTION A. LIVER BIOPSY LEFT [...] 07/09/17 Patient: ZEKE ROMERO Re07/03/17Loc: T4-A MR#: [id number] END OF REPORT Dis: 07/09/17ta: DIS [id number] 05:13:00 Test Item Value Reference Range Interpretation [...] U/L 8-55 H = ALT) Reference Lab [id number] 04:14:00 Test Item Value Reference Range Interpretation Comments Reference Lab 10 U/mL 0-35 Laurent ECLIA Testing (test code methodolo gyPerformed at: HD = CA199) - [facility] [address] [place] [address] [id number] Di aimee: [place] Suero MD, Phone : [phone] Reference Lab [id number] 16:14:00 Test Item Value Reference Range Interpretation Comments Reference Lab Testing 128.5 Units 0.0-20.0 H (test code = MARLON) Negative 0.0 - 20.0 Equivocal 20.1 - 24.9 Positive >24.9Mitochondr ial (M2) Antibodies are found in 90-96% ofpatients with primary biliary cirrhosis.Perfo rmed at: - [facility] [place], [place] [id number] Director: Pj Rider MD, [facility] ne: [phone] Reference Lab [id number] 16:14:00 Test Item Value Reference Range Interpretation [...] b y EIA. Ref. AM J Clin Ihqsco5479;111: 507-513. Reference Lab <1:20 titer Neg:<1:20 The atypical p ANCA pattern Testing (test has been obser chelita in code = ATANCA) asignificant percentage of patients with u lcerative colitis,primary sclerosing cholangitis and autoimmune hepatitis.Perfo rmed at: - [facility] [address] [id number] Di aimee: Chester ramírez MD, Phone: [phone] [id number] 05:12:00 Test Item Value Reference Range Interpretation [...] 8-55 H code = ALT) Reference Lab [id number] 22:07:00 Test Item Value Reference Range Interpretation Comments Reference Lab Testing 785 IU/L 39-117 H (test code = ISOALKT) Reference Lab Testing 25 % 14-68 (test code = ISOALKBT) Reference Lab Testing 74 % 18-85 (test code = ISOALKLT) Reference Lab Testing 1 % 0-18 Perfor med at: HD - (test code = ISOALKIT) [facility] [place] [address] [place], [place] [id number] b Director: [place] Suero MD, Phone: [phone] at: BN [facility] [id number] Di aimee: Chester ramírez MD, Phone: [phone] [id number] 11:48:00 Test Item Value Reference Range Interpretation [...] code = ALT) 92 U/L 8-55 H [id number] 06:08:00 Test Item Value Reference Range Interpretation [...] 8.5 mg/dL 7.8-10.44 N code = CA) [id number] 06:06:00 Test Item Value Reference Range Interpretation [...] code = ALT) 129 U/L 8-55 H [id number] 05:57:00 Test Item Value Reference Range Interpretation [...] code = BASO#) 0.0 thou/uL 0.0-0.2 N [id number] 05:55:00 Test Item Value Reference Range Interpretation [...] - 4. 0 CRITICAL: > 4.0 Anticoagulant? [id number] 05:36:00 Test Item Value Reference Range Interpretation [...] 8.9 mg/dL 7.8-10.44 N code = CA) [id number] 05:33:00 Test Item Value Reference Range Interpretation [...] code = ALT) 160 U/L 8-55 H [id number] 05:28:00 Test Item Value Reference Range Interpretation [...] 0.1 thou/uL 0.0-0.2 N Chemistry - Elizabeth [id number] 13:02:00 Test Item Value Reference Range Interpretation [...] Phadia AB Elizabeth Package Inserts - Directions forU se, June,August 02, [employer] ic. [id number] 05:00:00 Test Item Value Reference Range Interpretation [...] code = ALT) 144 U/L 8-55 H [id number] 04:50:00 Test Item Value Reference Range Interpretation [...] 8.4 mg/dL 7.8-10.44 N code = CA) [id number] 04:39:00 Test Item Value Reference Range Interpretation [...] code = BASO#) 0.0 thou/uL 0.0-0.2 N [id number] 17:07:00 Test Item Value Reference Range Interpretation Comments Chemistry (test code = IGG) 1032.00 mg/dL 552-1631 N [id number] 17:07:00 Test Item Value Reference Range Interpretation Comments Chemistry (test code = IGM) 215.00 mg/dL 33-293 N [id number] 00:50:00 Test Item Value Reference Range Interpretation [...] UABLD) Urine Source: Urine Clean CatchChemistry - Tlndhigh2218-40-29 00:25:00 Test Item Value Reference Range Interpretation Comments Chemistry - Specials (test Non-Reactive NonReactive code = THEPAIGM) Chemistry - Specials (test Non-Reactive S/CO NonReactive code = THBSAG) Chemistry - Specials (test Non-Reactive NonReactive code = INTHBCM) Chemistry - Specials (test Non-Reactive NonReactive code = INTHEPC) [id number] 22:12:00 Test Item Value Reference Range Interpretation Comments Chemistry (test code = LIP) 22 U/L 8-78 N [id number] 22:12:00 Test Item Value Reference Range Interpretation [...] code 196 U/L 8-55 H = ALT) [id number] 21:50:00 Test Item Value Reference Range Interpretation [...] code = BASO#) 0.1 thou/uL 0.0-0.2 N [id number] 22:49:00 Test Item Value Reference Range Interpretation [...] 78 U/L 8-55 H code = ALT) [id number] 22:49:00 Test Item Value Reference Range Interpretation Comments Chemistry (test code = LIP) 12 U/L 8-78 N [id number] 22:24:00 Test Item Value Reference Range Interpretation [...] code = BASO#) 0.0 thou/uL 0.0-0.2 N [id number] 22:00:00 Test Item Value Reference Range Interpretation [...] UABLD) Negative Negative Urine Source: Urine Clean CcibeDpbtzurc2442-01-12 09:28:00 Test Item Value Reference Range Interpretation Comments Accuchek (test code = ACU) 99 mg/dL 70-110 N Rvmmhvrsnv3849-71-76 09:14:00 Test Item Value Reference Range Interpretation [...] UABLD) Negative Negative Urine Source: Urine Clean ShysoPyqifkvoih4274-30-35 21:28:00 Test Item Value Reference Range Interpretation [...] UABLD) Negative Negative Urine Source: Urine Clean [id number] 21:09:00 Test Item Value Reference Range Interpretation [...] 95 U/L 8-55 H code = ALT) [id number] 21:09:00 Test Item Value Reference Range Interpretation Comments Chemistry (test code = LIP) 39 U/L 8-78 N [id number] 20:49:00 Test Item Value Reference Range Interpretation [...] code = BASO#) 0.0 thou/uL 0.0-0.2 N Nuiotfbmim4950-96-86 21:34:00 Test Item Value Reference Range Interpretation [...] Presu mptive positive urines are held [facility]. Urine Source: Urine Clean [id number] 19:17:00 Test Item Value Reference Range Interpretation [...] = UABLD) Negative Negative Urine Source: Urine [id number] 18:48:00 Test Item Value Reference Range Interpretation [...] code 84 U/L 8-55 H = ALT) [id number] 18:48:00 Test Item Value Reference Range Interpretation Comments Chemistry (test code = JORGE) 53.0 U/L 25-125 N [id number] 18:48:00 Test Item Value Reference Range Interpretation Comments Chemistry (test code = LIP) 10 U/L 8-78 N [id number] 18:19:00 Test Item Value Reference Range Interpretation [...] = BASO#) 0.1 thou/uL 0.0-0.2 N Culture, [id number] 10:22:00 Test Item Value Reference Range Interpretation Comments Culture, Urine (test code = URC) NF N Culture, Urine (test code = URC1) 10 MSF N [id number] 17:38:00 Test Item Value Reference Range Interpretation Comments Chemistry (test code = PHOS) 2.9 mg/dL 2.3-4.7 N [id number] 17:04:00 Test Item Value Reference Range Interpretation [...] H = ALT) Chemistry - BNP, HgbA1c, [id number] 17:04:00 Test Item Value Reference Range Interpretation Comments Chemistry - BNP, 4.9 % 4.0-6.0 N Therapeutic goals for glycemic HgbA1c, PTHi (test control ( ADA)Adults:- Goal of code = FPYY5HF) therapy: Les s than 7.0% HbA1c- Action suggeste d: Greater than 8.0% YrX3zCgjpn tric patients:- Toddlers and pr eschoolers: Less than 8.5% (but Greater than 7.5%)- Katelynn ool age (6-12 years): Less th an 8%- Adolescents and young adults (13-19 years): Less than 7.5%Diagnosing diabetes (ADA)- HbA1c: Greater than or equal to 6.5% Values of 5.7 - 6.4% indicate HIGH risk for developing DiabetesInterna tional Expert Committee Repor t on the Role of the S7AJmotg in the Diagnosis of Di abetes. Diabetes Care 2009July;32(7): 1327-1334ADA, Diagnosis cla ssification of diabetes [facility].Diabetes Care 2010; 33 S uppl 1:S62 [id number] 16:59:00 Test Item Value Reference Range Interpretation Comments Chemistry (test code = CRP) 1.16 mg/dL = or < 0.5 H What test does the doctor want? C-REACTIVE PROTEIN (CRP)[id number] 16:53:00 Test Item Value Reference Range Interpretation [...] HPF None Seen Urine Source: Urine Clean [id number] 16:46:00 Test Item Value Reference Range Interpretation [...] code = BASO#) 0.1 thou/uL 0.0-0.2 N [id number] 21:59:00 Test Item Value Reference Range Interpretation [...] Urine Clean CatchSepsis - Lactic Acid >2 [id number] 23:59:00 Test Item Value Reference Range Interpretation Comments Sepsis - Lactic Additional Lactate testin g will be Acid >2 Rflx performed in 3 hrs (test code = according to e [id number]) SepsisProtocol. [id number] 21:12:00 Test Item Value Reference Range Interpretation Comments Chemistry (test code = JORGE) 59.0 U/L 25-125 N [id number] 20:59:00 Test Item Value Reference Range Interpretation [...] 87 U/L 8-55 H code = ALT) [id number] 20:59:00 Test Item Value Reference Range Interpretation Comments Chemistry (test code = LIP) 32 U/L 8-78 N Chemistry - [id number] 20:59:00 Test Item Value Reference Range Interpretation Comments Chemistry - Lactate (test code = 2.1 mmol/L 0.5-2.2 N LACTSEP-T) [id number] 20:43:00 Test Item Value Reference Range Interpretation [...] = UABLD) Negative Negative Urine Source: Urine [id number] 20:37:00 Test Item Value Reference Range Interpretation [...]
[2020-08-25 18:33] LABS: Urine Blood Negative (Negative); Urine Glucose Negative (Negative); Urine Protein Negative (Negative)
[2020-08-25] MEDS ORDERED: MORPHINE 4 MG/ML SYR ONE (19:14)
[2020-08-25] MEDS ORDERED: NA CHLORIDE 0.9% 1,000 ML ONE (19:14)
[2020-08-25] MEDS ORDERED: FAMOTIDINE 20 MG/2 ML VIAL IV ONE (19:14)
[2020-08-25] MEDS ORDERED: ONDANSETRON 4 MG/2 ML VIAL ONE ×2 (19:14→21:33)
[2020-08-25 19:19] LABS: Absolute Lymphocytes (CBC) 1.2 K/uL (0.7-4.9); Basophils % 0.7 % (0-1.3); Hematocrit 31.5 % (36.0-45.0); Lymphocytes % 21.3 % (15.3-44.8); MPV 8.4 fL (7.6-11.3); RBC Red Blood Cell Count 3.45 M/uL (3.86-4.86)
[2020-08-25 19:21] LABS: Protime INR 0.95
[2020-08-25 19:22] LABS: ALT/SGPT 111 U/L (12-78); AST/SGOT 83 U/L (15-37); Albumin 3.2 g/dL (3.4-5.0); Alkaline Phosphatase 646 U/L (45-117); BUN Blood Urea Nitrogen 15 mg/dL (7-18); Bicarbonate 25 mmol/L (21-32); Bilirubin Direct 0.4 mg/dL (0-0.2); Bilirubin Total 0.5 mg/dL (0.2-1.0); Glucose Level 116 mg/dL (74-106); HDL Cholesterol 67 mg/dL (40-60); LDL Cholesterol, Calculated 353 (<130); Lipase 140 U/L (73-393); NT PRO-BNP 9 pg/mL (<125); Protein, Total 7.5 g/dL (6.4-8.2); Sodium Level 138 mmol/L (136-145); Troponin (Emerg Dept Use Only) < 0.02 ng/mL (0.0-0.045)
--- NOTE | 2020-08-25 19:49 | RAD REPORT ---
EXAM DESCRIPTION: RAD - Chest Single View - 08/25/2020 7:37 pm CLINICAL HISTORY: ABDOMINAL DISTENTION Chest pain. COMPARISON: Chest Single View dated 12/17/2019; Chest Single View dated 06/21/2019; Abdomen Acute Series dated 07/18/2016; Chest Pa And Lat (2 Views) dated 05/04/2016 FINDINGS: Portable technique limits examination quality. The lungs are grossly clear. The heart is normal in size. No displaced fractures. IMPRESSION: No acute intrathoracic process suspected.
--- NOTE | 2020-08-25 20:09 | ER ---
Nurse's Notes [facility] Name: Yessenia Aleman Age: 59 yrs Sex: Female : 1960 Arrival Date: 08/25/2020 Time: 17:27 Bed 17 Private MD: Jeannie Slade Diagnosis: Intractable abdominal pain, nausea, vomiting;Biliary cirrhosis, unspecified Presentation: 08/25 17:45 Chief complaint: Patient states: RUQ abdominal pain x 3 days, hx of pancreatitis, N/V jl7 since this morning, denies fever. Coronavirus screen: Client denies travel out of the [place] in the last 14 days. At this time, the client does not indicate any symptoms associated with coronavirus-19. Ebola Screen: No symptoms or risks identified at this time. Initial Sepsis Screen: Does the patient meet any 2 criteria? No. Patient's initial sepsis screen is negative. Does the patient have a suspected source of infection? No. Patient's initial sepsis screen is negative. Risk Assessment: Do you want to hurt yourself or someone else? Patient reports no desire to harm self or others. Onset of symptoms was August 23, 2020. Care prior to arrival: None. 17:45 Method Of Arrival: Ambulatory jl7 17:45 Acuity: HOLLI 3 jl7 Triage Assessment: 17:48 General: Appears in no apparent distress. uncomfortable, Behavior is calm, cooperative, jl7 appropriate for age. Pain: Complains of pain in epigastric area, right upper quadrant and left upper quadrant Pain currently is 8 out of 10 on a pain scale. GI: Reports nausea, vomiting. Historical: - Allergies: 17:48 Codeine; jl7 - Home Meds: 17:48 losartan 100 mg Oral tab 1 tab once daily for Hypertension [Active]; [place] 10-325 mg jl7 Oral tab 1 tab twice a day for Pain [Active]; Phenergan Oral [Active]; gabapentin oral oral [Active]; - PMHx: 17:48 Anxiety; Arthritis; biliary chirrosis; biliary disease; CHF; Chronic Pancreatitis; jl7 Cirrhosis; Hypertension; Pancreatitis; Pneumonia; - PSHx: 17:48 Cholecystectomy; Appendectomy; Bile duct stent; jl7 - Immunization history:: Adult Immunizations up to date, Client reports receiving the 2nd dose of the Covid vaccine. - Social history:: Smoking status: Patient denies any tobacco usage or history of. Screenin:06 Abuse screen: Denies threats or abuse. Nutritional screening: No deficits noted. ap3 Tuberculosis screening: No symptoms or risk factors identified. Fall Risk None identified. Assessment: 18:00 General: Appears in no apparent distress. uncomfortable, Behavior is calm, cooperative, ap3 appropriate for age. Pain: Complains of pain in abdomen Pain radiates to low back area. Neuro: Level of Consciousness is awake, alert, obeys commands, Oriented to person, place, time, situation. Cardiovascular: Capillary refill < 3 seconds. Respiratory: Airway is patent Respiratory effort is even, unlabored, Respiratory pattern is regular, symmetrical. GI: Bowel sounds present X 4 quads. Abd is soft X 4 quads Abdomen is tender to palpation in right upper quadrant. : No signs and/or symptoms were reported regarding the genitourinary system. EENT: No signs and/or symptoms were reported regarding the EENT system. Derm: Skin is jaundiced. Musculoskeletal: No signs and/or symptoms reported regarding the musculoskeletal system. 19:29 Reassessment: Patient and/or family updated on plan of care and expected duration. Pain ap3 level reassessed. Patient is alert, oriented x 3, equal unlabored respirations, skin warm/dry/pink. 19:30 Reassessment: Received care of pt at this time. Pt resting comforably in strecher, resp ad5 with ease. Denies needs. NAD noted, will continue to monitor. 21:21 Reassessment: Patient appears in no apparent distress at this time. Patient and/or ad5 family updated on plan of care and expected duration. Pain level reassessed. Pain: Complains of pain in right upper quadrant Pain currently is 9 out of 10 on a pain scale. 22:30 Reassessment: Patient appears in no apparent distress at this time. Patient and/or ad5 family updated on plan of care and expected duration. Pain level reassessed. Patient is alert, oriented x 3, equal unlabored respirations, skin warm/dry/pink. Pain: Complains of pain in right upper quadrant Pain currently is 5 out of 10 on a pain scale. 23:30 Reassessment: Patient and/or family updated on plan of care and expected duration. Pain ad5 level reassessed. Patient is alert, oriented x 3, equal unlabored respirations, skin warm/dry/pink. Pt up to restroom, ambulatory with steady gait. Repositioned back into stretcher for comfort, reports pain worsening to epigastric area. Analgesia administered as ordered. Pt VSS, reattached to . Pt informed of transfer per request, EMTALA completed at this time. Pt report to receiving RNUsha at [facility]. EMS en route for transfer. 08/26 00:58 Reassessment: Patient appears in no apparent distress at this time. Patient and/or ad5 family updated on plan of care and expected duration. Pain level reassessed. Patient is alert, oriented x 3, equal unlabored respirations, skin warm/dry/pink. Reassessment: Patient states feeling better. Pain: Complains of pain in epigastric area Pain currently is 5 out of 10 on a pain scale. Vital Signs: 08/25 17:45 BP 124 / 101; Pulse 88; Resp 15 S; Temp 97.5(TE); Pulse Ox 100% on R/A; Weight 74.84 jl7 kg; Height 5 ft. 0 in. (152.40 cm); Pain 8/10; 18:05 BP 141 / 99; Pulse 79; Pulse Ox 99% on R/A; ap3 19:30 BP 144 / 85; Pulse 81; Resp 18 S; Pulse Ox 98% on R/A; ad5 21:00 BP 157 / 90; Pulse 93; Resp 16 S; Pulse Ox 97% on R/A; ad5 22:00 BP 120 / 73; Pulse 88; Resp 17 S; Pulse Ox 97% on R/A; ad5 08/26 00:00 BP 157 / 100; Pulse 86; Resp 17 S; Pulse Ox 96% on R/A; ad5 00:59 BP 142 / 85; Pulse 82; Resp 16 S; Pulse Ox 97% on R/A; ad5 08/25 17:45 Body Mass Index 32.22 (74.84 kg, 152.40 cm) jl ED Course: 08/25 17:27 Patient arrived in ED. mr 17:27 Jeannie Slade MD is Private Physician. mr 17:47 Triage completed. jl7 17:48 Arm band placed on right wrist. jl7 17:55 Kyler Arthur MD is Attending Physician. [facility] 18:05 Tosha Florence, RN is Primary Nurse. ap3 18:06 Patient has correct armband on for positive identification. Bed in low position. Call ap3 light in reach. Side rails up X 1. Pulse ox on. NIBP on. Door closed. Noise minimized. 19:04 LEFT EJ PLACED BY DR. ARTHUR. Inserted saline lock: 18 gauge in left EJ, using ap3 aseptic technique. Blood collected. 19:06 EKG done, by ED staff, reviewed by Kyler Arthur MD. 5 19:37 XRAY Chest (1 view) In Process Unspecified. EDMS 20:02 CT Abd/Pelvis - IV Contrast Only In Process Unspecified. EDMS 20:05 Maximo Gallegos DO is Hospitalizing Provider. [facility] 21:05 initiated a transfer with Linh from [facility]. 2 23:17 administrative approval given by Linh Barnes/ patient has been accepted to [address] [place] bed 1539/ Dr. Omer has accepted the patient in transfer/ report to be called to [phone]. 08/26 00:00 Patient transferred, IV remains in place. ad5 Administered Medications: 08/25 19:02 Drug: Zofran (Ondansetron) 4 mg Route: IVP; Site: left jugular; ap3 21:19 Follow up: Response: No adverse reaction ad5 19:03 Drug: Pepcid (famotidine) 20 mg Route: IVP; Site: left jugular; ap3 19:03 Drug: NS 0.9% 1000 ml Route: IV; Rate: 1 bolus; Site: left jugular; ap3 23:49 Follow up: IV Status: Completed infusion; IV converted to saline lock; IV Intake: [id number] 19:03 Drug: morphine 4 mg Route: IVP; Site: left jugular; ap3 21:19 Follow up: Response: No adverse reaction ad5 21:18 Drug: Zofran (Ondansetron) 4 mg Route: IVP; Site: left jugular; ad5 22:46 Follow up: Response: No adverse reaction ad5 21:19 Drug: morphine 2 mg {Note: RASS 0.} Route: IVP; Site: left jugular; ad5 22:47 Follow up: Response: No adverse reaction; Pain is decreased ad5 23:46 Drug: morphine 2 mg {Note: RASS 0.} Route: IVP; Site: left jugular; ad5 08/26 01:18 Follow up: Response: No adverse reaction; Pain is decreased ad5 Intake: 08/25 23:49 IV: 1000ml; Total: 1000ml. ad5 Outcome: 20:08 Decision to Hospitalize by Provider. irene 22:43 ER care complete, transfer ordered by . brian 08/26 00:00 Transferred by ground EMS to [facility], Transfer form completed. ad5 Condition: stable Instructed on follow up and referral plans. the need for transfer, Demonstrated understanding of instructions, follow-up care. 01:19 Patient left the ED. ad5 Signatures: Dispatcher [employer] EDMS Kyler Arthur MD MD cha Rivera, Sheryl mr Won Marmolejo, BREAK OUT WORKER-C BREAK OUT WORKER-[facility] Yamileth Messina [facility] Joo Samano, RN RN jl7 Tosah Florence RN RN ap3 Suki Lui 2 Jhonatan Farmer ad5
--- NOTE | 2020-08-25 20:09 | EDPHYS ---
Physician Documentation [facility] Name: Yessenia Aleman Age: 59 yrs Sex: Female : 1960 Arrival Date: 08/25/2020 Time: 17:27 Bed 17 Private MD: Jeannie Slade ED Physician Kyler Flores HPI: 08/25 18:10 This 59 yrs old Female presents to ER via Ambulatory with complaints of irene Abdominal Pain, Vomiting. 18:10 The patient presents to the emergency department with nausea, vomiting, abdominal pain, irene of the epigastric area, right upper quadrant and left upper quadrant. Onset: The symptoms/episode began/occurred 3 day(s) ago. Possible causes: unknown. The symptoms are aggravated by movement, pressure, food , The symptoms are alleviated by nothing. remaining still. Associated signs and symptoms: Pertinent positives: abdominal pain, nausea, vomiting. Severity of symptoms: At their worst the symptoms were moderate in the emergency department the symptoms are unchanged. The patient has not experienced similar symptoms in the past. Historical: - Allergies: 17:48 Codeine; jl7 - Home Meds: 17:48 losartan 100 mg Oral tab 1 tab once daily for Hypertension [Active]; [place]ablo 10-325 mg jl7 Oral tab 1 tab twice a day for Pain [Active]; Phenergan Oral [Active]; gabapentin oral oral [Active]; - PMHx: 17:48 Anxiety; Arthritis; biliary chirrosis; biliary disease; CHF; Chronic Pancreatitis; jl7 Cirrhosis; Hypertension; Pancreatitis; Pneumonia; - PSHx: 17:48 Cholecystectomy; Appendectomy; Bile duct stent; jl7 - Immunization history:: Adult Immunizations up to date, Client reports receiving the 2nd dose of the Covid vaccine. - Social history:: Smoking status: Patient denies any tobacco usage or history of. ROS: 18:11 Constitutional: Negative for fever, chills, and weight loss, Eyes: Negative for injury, irene pain, redness, and discharge, ENT: Negative for injury, pain, and discharge, Neck: Negative for injury, pain, and swelling, Cardiovascular: Negative for chest pain, palpitations, and edema, Respiratory: Negative for shortness of breath, cough, wheezing, and pleuritic chest pain, Back: Negative for injury and pain, : Negative for injury, bleeding, discharge, and swelling, MS/Extremity: Negative for injury and deformity, Neuro: Negative for headache, weakness, numbness, tingling, and seizure, Psych: Negative for depression, anxiety, suicide ideation, homicidal ideation, and hallucinations, Allergy/Immunology: Negative for hives, rash, and allergies, Endocrine: Negative for neck swelling, polydipsia, polyuria, polyphagia, and marked weight changes, Hematologic/Lymphatic: Negative for swollen nodes, abnormal bleeding, and unusual bruising. 18:11 Abdomen/GI: Positive for abdominal pain, nausea and vomiting, abdominal distension, of the epigastric area, right upper quadrant and left upper quadrant. Exam: 18:11 Constitutional: This is a well developed, well nourished patient who is awake, alert, irene and in no acute distress. Head/Face: Normocephalic, atraumatic. Eyes: Pupils equal round and reactive to light, extra-ocular motions intact. Lids and lashes normal. Conjunctiva and sclera are non-icteric and not injected. Cornea within normal limits. Periorbital areas with no swelling, redness, or edema. ENT: Nares patent. No nasal discharge, no septal abnormalities noted. Tympanic membranes are normal and external auditory canals are clear. Oropharynx with no redness, swelling, or masses, exudates, or evidence of obstruction, uvula midline. Mucous membranes moist. Neck: Trachea midline, no thyromegaly or masses palpated, and no cervical lymphadenopathy. Supple, full range of motion without nuchal rigidity, or vertebral point tenderness. No Meningismus. Chest/axilla: Normal chest wall appearance and motion. Nontender with no deformity. No lesions are appreciated. Cardiovascular: Regular rate and rhythm with a normal S1 and S2. No gallops, murmurs, or rubs. Normal PMI, no JVD. No pulse deficits. Respiratory: Lungs have equal breath sounds bilaterally, clear to auscultation and percussion. No rales, rhonchi or wheezes noted. No increased work of breathing, no retractions or nasal flaring. Back: No spinal tenderness. No costovertebral tenderness. Full range of motion. Female : Normal external genitalia. MS/ Extremity: Pulses equal, no cyanosis. Neurovascular intact. Full, normal range of motion. Neuro: Awake and alert, GCS 15, oriented to person, place, time, and situation. Cranial nerves II-XII grossly intact. Motor strength 5/5 in all extremities. Sensory grossly intact. Cerebellar exam normal. Normal gait. Psych: Awake, alert, with orientation to person, place and time. Behavior, mood, and affect are within normal limits. 18:11 Abdomen/GI: Inspection: distension, Bowel sounds: active, Palpation: moderate abdominal tenderness, in the epigastric area, right upper quadrant and left upper quadrant, Liver: no appreciated palpable abnormalities, Hernia: not appreciated. 18:11 Skin: Appearance: Color: jaundiced, Temperature: normal temperature, Moisture: normal moisture, petechiae, not noted, ecchymosis, not noted, flushing, not noted, diaphoresis is not appreciated. 19:20 ECG was reviewed by the Attending Physician. [facility] Vital Signs: 17:45 BP 124 / 101; Pulse 88; Resp 15 S; Temp 97.5(TE); Pulse Ox 100% on R/A; Weight 74.84 jl7 kg; Height 5 ft. 0 in. (152.40 cm); Pain 8/10; 18:05 BP 141 / 99; Pulse 79; Pulse Ox 99% on R/A; ap3 19:30 BP 144 / 85; Pulse 81; Resp 18 S; Pulse Ox 98% on R/A; ad5 21:00 BP 157 / 90; Pulse 93; Resp 16 S; Pulse Ox 97% on R/A; ad5 22:00 BP 120 / 73; Pulse 88; Resp 17 S; Pulse Ox 97% on R/A; ad5 08/26 00:00 BP 157 / 100; Pulse 86; Resp 17 S; Pulse Ox 96% on R/A; ad5 00:59 BP 142 / 85; Pulse 82; Resp 16 S; Pulse Ox 97% on R/A; ad5 08/25 17:45 Body Mass Index 32.22 (74.84 kg, 152.40 cm) jl7 Procedures: 08/25 18:52 Peripheral line: by aseptic technique a peripheral line was placed in the left external irene jugular vein. MDM: 17:55 Patient medically screened. [facility] 18:15 Differential diagnosis: Nonspecific abd pain, gastritis, pancreatitis, appendicitis, irene diverticulitis, viral gastroenteritis, gastroenteritis, appendicitis, bowel obstruction, diverticulitis, gastritis, gastroesophageal reflux disease, GI Bleed, Hepatitis, non-specific abd pain, pancreatitis, Peptic Ulcer Disease, Pyelonephritis, urinary tract infection. Data reviewed: vital signs, nurses notes, lab test result(s), EKG, radiologic studies, CT scan, plain films. Data interpreted: traffic monitor specialist: rate is 79 beats/min, rhythm is regular, Pulse oximetry: on room air is 99 %. Test interpretation: by ED physician or midlevel provider: ECG, plain radiologic studies. Counseling: I had a detailed discussion with the patient and/or guardian regarding: the historical points, exam findings, and any diagnostic results supporting the discharge/admit diagnosis, lab results, radiology results. 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 Destini Agustin at [facility] in [place] although she is unable to make her appointment due to logistical issues. Patient reports increasing pain over the course of the last 2 days, previous biliary stenting and ERCP reported back in 2016. Patient requests attempt at transfer to [facility] rather than admission here for further evaluation and management of her intractable epigastric pain, nausea. GI available here but unable to perform ERCP. Transfer was initiated in case was discussed with Dr. Stiles who reported he would see the patient. Currently pending case discussion with hospitalist at [facility].. 08/25 18:08 Order name: Basic Metabolic Panel; Complete Time: 19:55 08/25 18:08 Order name: CBC with Diff; Complete Time: 19:55 irene 08/25 18:08 Order name: LFT's; Complete Time: 19:55 08/25 18:08 Order name: Magnesium; Complete Time: 19:55 08/25 18:08 Order name: NT PRO-BNP; Complete Time: 19:55 08/25 18:08 Order name: PT-INR; Complete Time: 19:55 08/25 18:08 Order name: Troponin (emerg Dept Use Only); Complete Time: 19:55 08/25 18:08 Order name: XRAY Chest (1 view); Complete Time: 19:55 irene 08/25 18:08 Order name: Lipase; Complete Time: 19:55 08/25 18:08 Order name: Lipid Profile; Complete Time: 19:55 08/25 18:08 Order name: Urine Culture [facility] 08/25 18:32 Order name: Urine Dipstick-Ancillary; Complete Time: 18:35 EDPR 08/25 20:19 Order name: SARS-COV-2 RT PCR; Complete Time: 20:28 EDPR 08/25 18:08 Order name: EKG; Complete Time: 18:17 [facility] 08/25 18:08 Order name: Cardiac monitoring; Complete Time: 18:30 [facility] 08/25 18:08 Order name: EKG - Nurse/Tech; Complete Time: 19:06 [facility] 08/25 18:08 Order name: IV Saline Lock; Complete Time: 18:52 [facility] 08/25 18:08 Order name: Labs collected and sent; Complete Time: 18:52 [facility] 08/25 18:08 Order name: O2 Per Protocol; Complete Time: 18:15 [facility] 08/25 18:08 Order name: O2 Sat Monitoring; Complete Time: 18:15 [facility] 08/25 18:08 Order name: Urine Dipstick-Ancillary (obtain specimen); Complete Time: 18:30 [facility] 08/25 18:08 Order name: CT Abd/Pelvis - IV Contrast Only; Complete Time: 20:13 [facility] EC:20 Rate is 83 beats/min. Rhythm is regular. QRS [place] is Normal. DC interval is normal. QRS irene interval is normal. QT interval is normal. No Q waves. T waves are Normal. No ST changes noted. Clinical impression: NSR w/ Non-specific ST/T Changes and No evidence of ischemia. Interpreted by me. Reviewed by me. Administered Medications: 19:02 Drug: Zofran (Ondansetron) 4 mg Route: IVP; Site: left jugular; ap3 21:19 Follow up: Response: No adverse reaction ad5 19:03 Drug: Pepcid (famotidine) 20 mg Route: IVP; Site: left jugular; ap3 19:03 Drug: NS 0.9% 1000 ml Route: IV; Rate: 1 bolus; Site: left jugular; ap3 23:49 Follow up: IV Status: Completed infusion; IV converted to saline lock; IV Intake: [id number] 19:03 Drug: morphine 4 mg Route: IVP; Site: left jugular; ap3 21:19 Follow up: Response: No adverse reaction ad5 21:18 Drug: Zofran (Ondansetron) 4 mg Route: IVP; Site: left jugular; ad5 22:46 Follow up: Response: No adverse reaction ad5 21:19 Drug: morphine 2 mg {Note: RASS 0.} Route: IVP; Site: left jugular; ad5 22:47 Follow up: Response: No adverse reaction; Pain is decreased ad5 23:46 Drug: morphine 2 mg {Note: RASS 0.} Route: IVP; Site: left jugular; ad5 08/26 01:18 Follow up: Response: No adverse reaction; Pain is decreased ad5 Disposition: 08/25/20 22:43 Transfer ordered to [facility]. Diagnosis are Intractable abdominal pain, nausea, vomiting, Biliary cirrhosis, unspecified. - Reason for transfer: [facility] Physician at [facility]. - Accepting physician is Destini Flynn. - Condition is Stable. - Problem is an acute exacerbation. - Symptoms are unchanged. Addendum: 08/27/2020 07:49 Co-signature as Attending Physician, Kyler Flores MD I agree with the assessment and c mcallister plan of care. Signatures: Dispatcher [employer] [facility] Kyler Flores MD MD cha Attema, Lee, CAMPAIGN COORDINATOR-C CAMPAIGN COORDINATOR-Cla1 Joo Samano RN RN jl7 Tosha Florence RN RN ap3 Jhonatan Farmer ad5 Corrections: (The following items were deleted from the chart) 08/25 19:33 18:17 CORONAVIRUS+ ordered. [facility] EDPR 22:41 20:08 Hospitalization Ordered by Maximo Gallegos DO for Observation. Preliminary la1 diagnosis is Abdominal tenderness; Primary biliary cirrhosis; Vomiting. Bed requested for Telemetry/MedSurg (observation). Status is Observation. Condition is Stable. Problem is new. Symptoms have improved. irene 08/26 01:19 08/25 22:43 08/25/2020 22:43 Transfer ordered to [facility]. ad5 Diagnosis is Intractable abdominal pain, nausea, vomiting; Biliary cirrhosis, unspecified. Reason for transfer: [facility] Physician at [facility]. Accepting physician is Destini Flynn. Condition is Stable. Problem is an acute exacerbation. Symptoms are unchanged. la1
--- NOTE | 2020-08-25 20:10 | RAD REPORT ---
EXAM DESCRIPTION: CTAbdomen Pelvis W Contrast - 08/25/2020 8:01 pm CLINICAL HISTORY: Abdominal pain. ABD PAIN COMPARISON: Abdomen Pelvis W Contrast dated 06/18/2020; Abdomen Pelvis W Contrast dated 06/05/2020; Abdomen Pelvis W Contrast dated 03/23/2020; Abdomen Pelvis W Contrast dated 11/20/2019 TECHNIQUE: Biphasic CT imaging of the abdomen and pelvis was performed with 100 ml non-ionic IV cont rast. All CT scans are performed using dose optimization technique as appropriate and may include automated exposure control or mA/KV adjustment according to patient size. FINDINGS: The lung bases are clear. The liver, spleen, pancreas, adrenal glands and kidneys are within normal limits. Cholecystectomy wit h mild pneumobilia. No bowel obstruction, free air, free fluid or abscess. The appendix is normal. No evidence of signi ficant lymphadenopathy. No suspicious bony findings. IMPRESSION: No acute intra-abdominal or pelvic finding.
[2020-08-25] MEDS ORDERED: MORPHINE 2 MG/ML SYR ONE ×2 (21:33→23:54)
[2020-08-26 01:29] VITALS: TEMP 97.5
[2020-08-26 01:38] VITALS: BP 142/85; O2SAT 97
== END 2020-08-26 01:19 | disposition short-term general hospital (02) ==
LOC: ER 17:23
DX: K74.5 Biliary cirrhosis, unspecified (principal); R10.11 Right upper quadrant pain; R10.12 Left upper quadrant pain; R11.2 Nausea with vomiting, unspecified; Z20.822 Contact with and (suspected) exposure to COVID-19; I11.0 Hypertensive heart disease with heart failure; I50.9 Heart failure, unspecified; F41.9 Anxiety disorder, unspecified; M19.90 Unspecified osteoarthritis, unspecified site; K86.1 Other chronic pancreatitis
CPT/HCPCS: 96361; 87088; 85025; 87086; 80048; 36415; 83735; 85610; 80061; 80076; 81003; 84484; 83690; 83880; 74177; 71045; 96375; 96374; 99285; U0003; Q9967; J2270 ×2; J7030; J2405 ×2; 93005

== ENCOUNTER 2020-09-05 04:16 | Emergency (ER) | payer OTHER ==
--- OUTSIDE RECORDS SUMMARY | 2020-09-05 04:21 | XMS REPORT | Continuity of Care Document ---
:1960 Author Organization [facility] [place] t Address [address] [place] [address] Care Team Providers Name Role Phone Prezas Primary Care Physician Luis Antonio Nguyễn MD Attending Clinician Torrie WEBSTER Attending Clinician Linsey WEBSTER, Alan Attending Clinician Matthew Guan MD Attending Clinician LUIS ANTONIO NGUYỄN Attending Clinician Unavailable Christopher Montenegro DO Attending Clinician Keira WEBSTER, S Attending Clinician Sydnie Llamas Attending Clinician Doctor Unassigned, Name Attending Clinician Unavailable Only, Test Attending Clinician Unavailable Sumit MA Attending Clinician Rayray Ayala MD Attending Clinician Pob, Lab Main Attending Clinician Unavailable Ron SANDING MACHINE OPERATOR OR TENDER Attending Clinician Lab, Fam Pob I Attending Clinician Unavailable Guerline Slade Attending Clinician Kenan WEBSTER, Maxine Attending Clinician James WEBSTER Attending Clinician Micaela WEBSTER Attending Clinician Mazin WEBSTER Attending Clinician Sonya HALL, G Attending Clinician Won Fisher MD Attending Clinician Singer CANALES Attending Clinician Christina WEBSTER, Obdulia Attending Clinician RAFAEL Mai-Connie Attending Clinician Unavailable Haley Cox Attending Clinician Unavailable PROVIDER, TEMP Attending Clinician Unavailable RADU Attending Clinician Unavailable To Attending Clinician Unavailable KRIS Attending Clinician Unavailable Bia CASTILLO Attending Clinician Unavailable NGUYỄN, LUIS ANTONIO Admitting Clinician Unavailable Keira WEBSTER, S Admitting Clinician Diego Grigsby MD Admitting Clinician Haley Cox Admitting Clinician Unavailable Payers Payer Name Policy Type Policy Effective Date Expiration Date Sour ce Number MEDICAREMEDICARE A [id number] 2015 ANDRES Hui [id number] 2015-P 00:00:00 - Medical resentMedicare Center CIGNA - MGD CARECIGNA [id number] [address] [facility] HMO/POS/OPEN 00:00:00 - Medical [id number]/18/ nter 2018-PresentHMO/POS Problems Condition Condition Condition Status Onset Resolution Last Treating Co mments Source Name Details Category Date Date Treatment Clinician Date Primary Primary Disease Active ANDRES Schrader biliary biliary 5-16 Korina - cirrhosis cirrhosis 00:00: Medi [facility] S/P ERCP S/P ERCP [facility] Medical 00 [place] Abdominal Abdominal Disease Active [facility] pain, pain, -07 [facility] acute, acute, 00:00: Medical right right 00 Center upper upper quadrant quadrant Hypokalemi Hypokalemi Disease Active [facility] a a 11-08 [facility] - 00:00: Medical 00 [place] Chronic Chronic Disease Active [facility] pain pain 11-08 [facility] - syndrome syndrome 00:00: Medica l 00 Center Hypokalemi Hypokalemi Disease Active [facility] c periodic c periodic 11-08 Shari kes - paralysis paralysis 00:00: Medi brandy 00 Center Biliary Biliary Disease Active [facility] disease disease 08-28 [facility] - 00:00: Medical 00 [place] Abdominal Abdominal Disease Active [facility] pain, pain, 08-21 [facility] - other other 00:00: Medical specified specified 00 Cent er site site Primary Primary Disease Active [facility] biliary biliary 5-05 [facility] - cholangiti cholangiti 00:00: Me dical s s 00 Center Pancreatit Pancreatit Disease Active [facility] is is 05 [facility] - 00:00: Medical 00 [place] Chronic Chronic Disease Active 2012-[address] [facility] pancreatit pancreatit 1-14 Shari kes - is is 00:00: Medical 00 [place] Abdominal Abdominal Disease Active 2012-[address] [facility] pain pain 04-22 [facility] - 00:00: Medical 00 [place] 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 04-22 [facility] - 00:00: Medical 00 [place] Elevated Elevated Disease Active 2012-04 [facility] liver liver 04-22 [facility] - enzymes enzymes 00:00: Medical 00 [place] Hypertensi Hypertensi Disease Active 2012-[address] on on 04-22 [facility] - 00:00: Medical 00 [place] Nausea & Nausea & Disease Active 2012-04 [facility] vomiting vomiting 04-22 [facility] - 00:00: Medical 00 [place] Fatty Fatty Disease Active 2012-[address] [facility] liver liver 04-22 [facility] - 00:00: Medical 00 [place] Alcohol Alcohol Disease Active 2012-[address] [facility] use use 08 [facility] - 00:00: Medical 00 [place] Immunity Immunity Disease Active 2012-04 [facility] status status 04-22 [facility] - testing testing 00:00: Medical 00 [place] Allergies, Adverse Reactions, Alerts Allergy Allergy Status Severity Reaction(s) Onset Inactive Treating Comm ents Source Name Type Date Date Clinician Codeine Drug Active Rash 2012-[address] [facility] Allergy 0-30 [facility] - 00:00: Medical 00 [place] Family History Family Member Diagnosis Comments Start Date Stop Date Source Natural brother Cancer [facility] Social History Social Habit Start Date Stop Date Quantity Comments Source Sex Assigned At [facility] Exposure to Not sure [facility] SARS-CoV-2 [facility] (event) Tobacco use and 2020-08-29 2020-08-29 Never used [facility] - exposure 00:00:00 00:00:00 [facility] Alcohol intake 2020-08-29 2020-08-29 Current [facility] es - 00:00:00 00:00:00 non-drinker of Medical Ce nter alcohol (finding) Smoking Status Start Date Stop Date Source Never smoker [facility] edical [place] Medications Ordered Filled Start Stop Current Ordering Indication Dosage Frequency Signature Comments Components Source Medication Medication Date Date Medication? Clinician (SIG) Name Name losartan Yes TAKE [address] [facility] (COZAAR) 5-16 TABLET BY [facility] - 100 MG 10:52: MOUTH Medical tablet 47 EVERY DAY Center QUEtiapine 2020- No 150mg QD Take [address] (SEROQUEL) 5-16 05-16 mg by [facility] - 100 MG 09:02: 00:00 mouth Medical tablet 50 :00 nightly. [place] promethazin 2020- No 25mg Take [address] e 5-16 05-16 by mouth [facility] - (PHENERGAN) 09:02: 00:00 every 6 Me dical 25 MG 50 :00 (six) Center tablet hours as needed for Nausea. ALPRAZolam No 1mg Take [address] (XANAX) 1 5-16 05-16 by mouth [facility] - MG tablet 09:02: 00:00 every Medica l 50 :00 night as Center needed Dose and frequency confirmed and verified with the patient. . HYDROcodone 2020- No 1{tbl} Take [address] -acetaminop 5-16 05-16 tablet by Shari contreras (NORCO 09:02: 00:00 mouth 2 Med ical 10-325) 50 :00 (two) Center 10-325 mg times per tablet daily as needed for Pain. gabapentin 2020- No 600mg Take [address] (NEURONTIN) 5-16 05-16 mg by [facility] - 600 MG 09:02: 00:00 mouth once Medi brandy tablet 50 :00 at Center bedtime. escitalopra 2020- No anxiety 10mg QD Take [address] m oxalate 5-16 05-16 with by mouth [facility] - (LEXAPRO) 09:02: 00:00 depression daily. Medical 10 MG 50 :00 Center tablet HYDROcodone 2020- No pain 1{tbl} Q.5D Take [address] -acetaminop 5-16 -16 tablet by Shari contreras (Let's TalkDE 09:02: 00:00 mouth 2 Med ical 5-325) 50 :00 (two) Center 5-325 mg times per tablet daily. diazePAM 2020- No 5mg Take [address] [address] (VALIUM) 5 5-16 05-16 by mouth 2 Shari kes - MG tablet 09:02: 00:00 (two) Medica l 50 :00 times Center daily as needed. gabapentin Yes Resume [facility] (NEURONTIN) 5-16 taking as Sammy es - 100 MG 00:00: you were Medical capsule 00 prior to Center admission. HYDROcodone Yes Resume [facility] -acetaminop 5-16 taking per Shari contreras (WARREN 00:00: prescripti M edical 7.5-325) 00 on Center 7.5-325 mg instructio per tablet ns for pain. You have this at home. omeprazole 2020- No 40mg QD Take [address] (PriLOSEC) 5-03 05-16 by mouth Luke s - 40 MG 00:00: 00:00 daily. Medical capsule 00 :00 Center tiZANidine Yes 2mg Q.5D Take [address] (ZANAFLEX) 4-19 by mouth 2 Sammy es - 2 MG tablet 00:00: (two) Medic al 00 times Center daily. traZODone Yes 100mg QD Take [address] (DESYREL) 4-19 mg by [facility] - 100 MG 00:00: mouth Medical tablet 00 nightly. Center ARIPiprazol No 10mg Q.5D Take [address] e (ABILIFY) 3-18 05-16 by mouth 2 L ukes - 10 MG 00:00: 00:00 (two) Medical tablet 00 :00 times Center daily. Chlorhexidi Chlorhexidi 2019- No Na Slade [address] ne ne 6 06-30 swish and [facility] - Gluconate Gluconate 00:00: 00:00 spit Me moria 00 :00 l [facility] Losartan Losartan Yes Na Slade [address] [address] Potassium Potassium [facility] Lexapro Lexapro Yes Na Slade [address] [facility] Seroquel XR Seroquel XR Yes Na Slade [address] [address] in the [facility] evening [facility] Phenergan Phenergan Yes Na Slade one tablet [facility] Doxycycline Doxycycline Yes Na Slade [address] Hyclate Hyclate [facility] Azithromyci Azithromyci Yes Na Slade [address] n n on the [facility] - first day, Memoria then 1 l tablet Outpati daily for ent 4 days Clinics Robaxin-750 Robaxin-750 Yes Na Slade [address] [facility] Flonase Flonase Yes Na Slade [address] each [facility] - nostril [facility]oria l [facility] Diazepam Diazepam Yes Na Slade [address] as needed [facility] PredniSONE PredniSONE Yes Na Slade [address] daily x 5 [facility] - days then Memoria one tablet l daily x 5 Outpati days ent Clinics Gabapentin Gabapentin Yes Na Slade [address] [facility] Losartan Losartan Yes Na Slade TAKE [address] Potassium Potassium TABLET BY [facility] - MOUTH Memoria EVERY DAY l [facility] Immunizations Ordered Immunization Filled Immunization Date Status Commen ts Source Name Name Influenza TIV (IM) 2013-02-27 Completed [facility] - 00:00:00 [facility] Center Vital Signs Vital Name Observation Time Observation Value Comments Source Heart rate 2020-08-28 10:41:00 86 /min [facility] Respiratory rate 2020-08-28 10:41:00 18 /min [facility] Oxygen saturation in 2020-08-28 10:41:00 95 /min [facility] Arterial blood by Medical Ce nter Pulse oximetry Systolic blood 2020-08-28 07:36:00 123 mm[Hg] [facility] Diastolic blood 2020-08-28 07:36:00 73 mm[Hg] [facility] Body temperature 2020-08-28 07:36:00 36.39 Roro [facility] Body weight 2020-08-28 04:41:00 83.9 kg [facility] BMI 2020-08-28 04:41:00 36.12 kg/m2 [facility] Body height 2020-08-26 02:50:00 152.4 cm [facility] Procedures Procedure Date / Time Performed Performing Clinician [facility] e REPORT OF PROCEDURE - 2020-08-27 08:35:40 Destini Stiles [facility] ENDOSCOPY [facility] ERCP 2020-08-27 08:35:00 Destini Stiles [facility] ERCP,BILIARY STENT 2020-08-27 08:00:00 Destini Stiles [facility] ERCP,BALLOON SWEEPING 2020-08-27 08:00:00 Destini Stiles [facility] PROCEDURE W/ C-ARM 2020-08-27 08:00:00 Destini Stiles [facility] BASIC METABOLIC PANEL 2020-08-27 06:05:00 Reagan Brownlee [facility] (7) [facility] MAGNESIUM 2020-08-27 06:05:00 Reagan Brownlee [facility] PHOSPHORUS 2020-08-27 06:05:00 Torrie Reagan [facility] HEPATIC FUNCTION PANEL 2020-08-27 06:05:[address] [facility] Maxine bonilla [facility] CBC W/PLT COUNT & AUTO 2020-08-27 05:09:00 [facility]agan [facility]ENTIAL [facility] BASIC METABOLIC PANEL 2020-08-26 05:14:00 Negra Tru[address]es [facility] - (7) [facility] CBC W/PLT COUNT & AUTO 2020-08-26 05:14:00 NguyễnTruong [facility] Maxine bonilla [facility] DIFFERENTIAL [facility] MAGNESIUM 2020-08-26 05:14:00 Nguyễn [facility] HEPATIC FUNCTION PANEL 2020-08-26 05:14:00 Nguyễn [facility] SARS-COV2/RT-PCR ([facility] & 2020-08-26 04:55:00 Destini Stiles [facility] - REF LABS) [facility] REPORT OF PROCEDURE - 2020-08-26 00:00:00 Provider, Baltazar [facility] - ENDOSCOPY SCAN Scanning [facility] Plan of Care Planned Activity Planned Date Details Comments Source Future Scheduled 2023-09-[address] [facility] es - Test 00:00:00 malignant neoplasm of Medica l Center colon (procedure) [code = 279177562] Future Scheduled 2021-11-[address] [facility] - Test 00:00:00 (procedure) [code = [facility] 32133323] Future Scheduled 2020-12-[address] [facility] - Test 00:00:00 (Season Ended) [code Medical Center = INFLUENZA VACCINE (Season Ended)] Future Scheduled 2020-04-[address] [facility] - Test 00:00:00 (12+) [code = [facility] Center DEPRESSION SCREENING (12+)] Future Scheduled 2016-04-[address] [facility] - Test 00:00:00 WELLNESS (YEAR 2 or Medical Center FIRST YEAR if no IPPE) [code = MEDICARE ANNUAL WELLNESS (YEAR 2 or FIRST YEAR if no IPPE)] Future Scheduled 2012 SHINGLES VACCINES ([address] [facility] - Test 00:00:00 of 2) [code = Medical Center SHINGLES VACCINES (1 of 2)] Future Scheduled 1983-11-[address] [facility] - Test 00:00:00 malignant neoplasm of [facility] cervix (procedure) [code = 332666096] Future Scheduled 1981 DTAP/TDAP/TD VACCINES [facility] - Test 00:00:00 (1 - Tdap) [code = Medical C enter DTAP/TDAP/TD VACCINES (1 - Tdap)] Future Scheduled [address] [facility] es - Test 00:00:00 malignant neoplasm of [facility] breast (procedure) [code = 751601169] Encounters Start End Encounter Admission Attending Care Care Encounter Source Date/Time Date/Time Type Type Clinicians Facility Department ID 2020-08-05 2020-08-05 Emergency [facility] [id number] 08:16:00 09:12:00 Maru Guidry [id number] [place] [id number] [place] [id number] [facility] 2020-07-18 2020-07-18 [facility] [id number] 06:28:00 08:29:00 Encounter Moise Maxine Chao [id number] [place] [id number] Surgical [id number] [place] 071 2020-07-18 2020-07-18 [facility] 1.2.840.114 [id number] 07:30:00 08:00:00 Chao [id number] [place] [id number] Surgical [id number] [place] 020 2020-07-07 2020-07-07 Emergency Collin, K [facility] 1.2.840.114 [id number] 18:47:00 22:05:00 Sydnie Guidry [id number] [place] [id number] [place] [id number] [id number] 2020-07-07 2020-07-07 Outpatient [facility] [id number] [facility] 00[facility]00 [facility] 2020-07-07 2020-07-07 Orders Doctor JAQUELIN 1.2.840.114 [id number] 00:00:00 00:00:00 Only Unassigned, KATHIE [id number] [place] [id number] [id number] 009 2020-07-04 2020-07-04 [facility] 1.2.840.114 [id number] 06:30:00 08:44:00 Encounter Moise Goodman Chao [id number] [place] [id number] Surgical [id number] [place] 07 2020-07-04 2020-07-04 Orders Doctor JAQUELIN 1.2.840.114 [id number] 00:00:00 00:00:00 Only Unassigned, KATHIE [id number] [place] [id number] [id number] 009 2020-07-01 2020-07-01 Laboratory Only, [facility] 1.2.840.114 [id number] 09:02:10 09:17:10 Only Test [place] [id number] [place] 4.2.7.2.686 [place] [id number] 2020-07-01 2020-07-01 Orders Doctor JAQUELIN 1.2.840.114 [id number] 00:00:00 00:00:00 Only Unassigned, KATHIE [id number]2.686 [id number] 009 2020-06-30 2020-06-30 [facility] [id number] 2020-06-22 2020-06-22 [facility] [id number] [facility] 2020-06-20 2020-06-20 [facility] 1.2.840.114 [id number] 06:29:00 08:58:00 Encounter Moise Goodman [place] [id number] [place] [id number] Surgical [id number] [place] 071 2020-06-20 2020-06-20 Anesthesia Abe Arana [facility] 1.2.840.11 [id number] 08:03:00 08:12:00 Event Dominguez Seo Chao [id number] [place] [id number] Surgical [id number] [place] 020 2020-06-20 2020-06-20 Orders Doctor JAQUELIN 1.2.840.114 [id number] 00:00:00 00:00:00 Only Unassigned, KATHIE [id number] Olin [facility] 42.7.2.686 [id number] 009 2020-06-17 2020-06-17 Water Treatment Plant Repairer Elizabeth, [facility] 1.2.840.114 [id number] 15:27:53 15:42:53 Visit Lab Main Chao [id number] [place] 4.2.7.2.686 [facility] [id number] [address] 2020-06-17 2020-06-17 Laboratory Only, [facility] 1.2.840.114 [id number] 15:26:19 15:41:19 Only Test Chao [id number] [place] 4.2.7.2.686 [place] [id number] 353 2020-06-17 2020-06-17 Orders Doctor HAMMER 1.2.840.114 [id number] 00:00:00 00:00:00 Only Unassigned, KATHIE [id number] Olin [facility] 4.2.7.2.686 [id number] 009 2020-05-06 2020-05-06 Emergency Ron, [facility] 1.2.840.114 [id number] 15:21:00 18:38:00 Grisel Chao [id number] [place] 4.2.7.2.686 [place] [id number] 084 2020-05-04 2020-05-04 Laboratory Lab, [facility] 1.2.840.114 [id number] 08:54:13 09:14:13 Only [facility] [id number] [place] 4.2.7.2.686 [facility] [id number] nal [address] 2020-04-14 2020-04-14 Letter Jeannie Slade 1.2.840.114 [id number] 00:00:00 00:00:00 (Out) KATHIE [id number] [facility] 4.2.7.2.686 [id number] 043 2020-03-25 2020-03-26 [facility] [id number] [id number] 21:13:00 02:01:00 Garbiele Guidry [id number] [place] 4.2.7.2.686 [place] [id number] 084 2020-03-18 2020-03-18 Orders Doctor HAMMER 1.2.840.114 [id number] 00:00:00 00:00:00 Only Unassigned, KATHIE [id number] Olin [facility] 4.2.7.2.686 [id number] 009 2020-03-08 2020-03-08 Outpatient [facility] [id number] [facility] 2020-03-07 2020-03-07 Outpatient [facility] [id number] [facility] 2020-01-31 2020-02-08 [facility] 1.2.840.1 [id number] 10:39:00 16:12:00 Encounter Grisel Ron [facility] [id number] Pasha Hinojosa 4.2.7.2.686 Katheryn Retana [id number] Hospital 110 (CLC) 2020-01-11 2020-01-11 [facility] [id number] 2020-01-06 2020-01-06 [facility] [id number] [facility] 2019-12-18 2019-12-18 [facility] [id number] 15:26:00 19:16:00 Meka Richey Chao [id number] [place] 4.2.7.2.686 [place] [address] [id number] 084 2019-10-06 2019-10-06 [facility] [id number] 10:40:00 10:40:00 [facility] [place] [facility] ent [facility] 2019-09-17 2019-09-17 [facility] [id number] 10:24:00 10:24:00 [facility] 2019-08-21 2019-08-[address]710.208 [id number] 19:42:19 23:51:00 Gabriele Goodman Chao 350.1.13.10 [place] 4.2.7.2.686 [place] [address] [id number] 2019-07-14 2019-07-14 [facility] [id number] 15:00:00 15:00:00 [facility] 2019-06-25 2019-06-25 Emergency [address]840.114 [id number] 16:52:11 20:04:00 Grisel Chao [id number] [place] 4.2.7.2.686 [place] [address] [id number] 084 2019-06-19 2019-06-19 Emergency [facility] [id number] 13:58:11 19:09:00 Skyler Guidry [id number] [place] 4.2.7.2.686 [place] [address] [id number] 084 2019-06-19 2019-06-19 Orders Doctor HAMMER 2.840.114 [id number] 00:00:00 00:00:00 Only Unassigned, KATHIE 350.1.13.10 Olin [facility] 4.2.7.2.686 [id number] [id number] 2019-05-19 2019-05-19 Emergency [facility] [id number] 18:29:04 21:26:00 Gary Guidry 350.1.13.10 [place] 4.2.7.2.686 [place] [id number] 084 2019-03-02 2019-03-02 [facility] [id number] 10:40:00 10:40:00 [place] [facility] - [address] [facility] Medicine Outpati ent Clinics 2019-02-04 2019-02-04 [facility] [id number] 10:55:00 10:55:00 t [place] [facility] - [facility] Medicine [facility] 2018-12-24 2018-12-24 [facility] 1.2.840.114 [id number] 00:00:00 00:00:00 [facility] [id number] [facility] 4.2.7.2.686 [facility] [id number] hazel Guidry 2018-10-07 2018-10-07 [facility] [id number] 11:00:00 11:00:00 t [place] [facility] - [facility] Medicine Outpati ent Clinics 2018-07-28 2018-07-28 [facility] [id number] 09:57:00 09:57:00 t [place] [employer] s - Drive [facility] Medicine Outpati ent Clinics 2018-07-25 2018-07-25 [facility] [id number] 14:40:00 14:40:00 t [place] [employer] - Drive [facility] Medicine [facility] Results Test Description Test Time Test Comments Results Result Sourc e Comments [place], ERCP 2020-08-27 Reason for 08:35:00 exam:->abnorm al imaging [facility] : 1960 Sex: F *Fluoroscopic unit utilized for a procedure performed in the OR. No interpretation was requested. Refer to the operative report for findings. Refer to PACS for patient radiation dose information. [place] ERCP 2020-08-27 Interface, External [facility] Maxine Hui 08:35:00 Ris In - 08/27/2020 - Med ical 8:53 AM Center CDTFluoroscopic unit utilized for a procedure performed in the OR. No interpretation was requested. Refer to the operative report for findings. Refer to PACS for patient radiation dose information. Basic Metabolic Panel 2020-08-27 06:42:00 Test Item Value Reference Range Interpretation Comme nts Sodium (test code = 138 meq/L 402-740 1504-2) Potassium (test code = 3.9 meq/L 3.5-5.1 2823-3) Chloride (test code = 106 meq/L 98-107 2075-0) CO2 (test code = 8-9) 25 meq/L 22-29 BUN (test code = 3094-0) 7 mg/dL 7-21 Creatinine (test code = 0.55 mg/dL 0.57-1.25 L 2160-0) Glucose (test code = 108 mg/dL 70-105 H 2345-7) Calcium (test code = 8.7 mg/dL 8.4-10.2 80807-2) EGFR (test code = 07710-2) 114 mL/min/1.73 sq m ESTIMATED GFR IS NOT ACCURATE CREATININE MEGA CHIRAG IN PREDICTING GLOMERULAR FILT RATION RATE. ESTIMATED GFR IS NOT APPLICAB LE FOR DIALYSIS PATIEN TS. KIM (test code = KIM) Computer Repair Engineer ID - EDASI Lab Interpretation (test Abnormal code = 66638-5) [facility] [id number] 06:42:00 Test Item Value Reference Range Interpretation Comments Protein, Total (test 6.5 See_Comment [Autom ated code = 2885-2) message] The system which generated this result transmit gulshan reference range : 6.0 - 8.3 gm/dL . The reference range was not u sed to interpret th is result as normal/abnormal . Albumin (test code = 3.4 g/dL 3.5-5 L 98067-0) Total Bilirubin (test 0.9 mg/dL 0.2-1.2 code = 1975-2) Bilirubin, Direct 0.5 mg/dL 0.1-0.5 (test code = 1968-7) Alkaline Phosphatase 541 U/L 40-150 H (test code = 6768-6) AST (test code = 86 U/L 5-34 H 1920-8) ALT (test code = 89 U/L 6-55 H 1742-6) KIM (test code = KIM) Computer Repair Engineer ID - EDASI Lab Interpretation Abnormal (test code = 43355-6) [facility] Center[facility]esium2021-05-15 06:42:00 Test Item Value Reference Range Interpretation Comments Magnesium (test code = 1.8 mg/dL 1.6-2.6 48086-1) KIM (test code = KIM) Computer Repair Engineer ID - EDASI Lab Interpretation (test Normal code = 85897-4) [facility] 06:42:00 Test Item Value Reference Range Interpretation Comments Phosphorus (test code = 3.4 mg/dL 2.3-4.7 2777-1) KIM (test code = KIM) Computer Repair Engineer ID - EDASI Lab Interpretation (test Normal code = 84945-8) [facility]UM2021-[facility]-15 06:42:00 Test Item Value Reference Range Interpretation Comments MAGNESIUM (BEAKER) (test code = 1.8 mg/dL 1.6-2.6 627) Computer Repair Engineer ID - [id number] 06:42:00 Test Item Value Reference Range Interpretation Comments PHOSPHORUS (BEAKER) (test code = 3.4 mg/dL 2.3-4.7 604) Computer Repair Engineer ID - EDASIHEPATIC FUNCTION [id number] 06:42:00 Test Item Value Reference Range Interpretation Comments TOTAL PROTEIN (BEAKER) (test code = 6.5 gm/dL 6.0-8.3 770) ALBUMIN (BEAKER) (test code = 1145) 3.4 g/dL 3.5-5.0 L BILIRUBIN TOTAL (BEAKER) (test code 0.9 mg/dL 0.2-1.2 = 377) BILIRUBIN DIRECT (BEAKER) (test 0.5 mg/dL 0.1-0.5 code = 706) ALKALINE PHOSPHATASE (BEAKER) (test 541 U/L 40-150 H code = 346) AST (SGOT) (BEAKER) (test code = 86 U/L 5-34 H 353) ALT (SGPT) (BEAKER) (test code = 89 U/L 6-55 H 347) Computer Repair Engineer ID - EDASIBASIC METABOLIC [id number] 06:42:00 Test Item Value Reference Range Interpretation Comments SODIUM (BEAKER) 138 meq/L 136-145 (test code = 381) POTASSIUM (BEAKER) 3.9 meq/L 3.5-5.1 (test code = 379) CHLORIDE (BEAKER) 106 meq/L 98-107 (test code = 382) CO2 (BEAKER) (test 25 meq/L 22-29 code = 355) BLOOD UREA NITROGEN 7 mg/dL 7-21 (BEAKER) (test code = 354) CREATININE (BEAKER) 0.55 mg/dL 0.57-1.25 L (test code = 358) GLUCOSE RANDOM 108 mg/dL 70-105 H (BEAKER) (test code = 652) CALCIUM (BEAKER) 8.7 mg/dL 8.4-10.2 (test code = 697) EGFR (BEAKER) (test 114 mL/min/1.73 ESTIM ATED GFR IS code = 1092) sq m NOT ACCURATE CREATININE CLEARANCE IN PREDICTING GLOMERULAR FILTRATION RATE . ESTIMATED GFR I S NOT APPLICABLE FOR DIALYSIS PATIEN TS. Computer Repair Engineer ID - EDASICBC with platelet count + automated [id number] 05:27:00 Test Item Value Reference Range Interpretation Comments WBC (test code = 6690-2) 3.5 See_Comment [A utomated message] The system [employer] generated this result transmitted ref erence range: 3.5 - 10 .5 K/L. The refe rence range was not u sed to interpret this result as normal/abnor mal. RBC (test code = 789-8) 3.29 See_Comment L [Au tomated message] The system [employer] generated this result transmitted ref erence range: 3.93 - 5 .22 M/L. The refe rence range was not u sed to interpret this result as normal/abnor mal. MCHC (test code = 786-4) 31.4 See_Comment L [A utomated message] The system [employer] generated this result transmitted ref erence range: 32.2 - 3 5.5 GM/DL. The refe rence range was not u sed to interpret this result as normal/abnor mal. Hematocrit (test code = 31.2 % 34.1-44.9 L 4544-3) MCV (test code = 787-2) 94.8 fL 79.4-94.8 MCH (test code = 785-6) 29.8 pg 25.6-32.2 RDW (test code = 788-0) 13.2 % 11.7-14.4 Platelets (test code = 155 See_Comment [Aut omated message] 777-3) The system [employer] generated this result transmitted ref erence range: 150 - 45 0 K/CU MM. The referen ce range was not u sed to interpret this result as normal/abnor mal. MPV (test code = 9.7 fL 9.4-12.3 14327-1) nRBC (test code = 413) 0 See_Comment [Aut omated message] The system [employer] generated this result transmitted ref erence range: 0 - 0 /1 00 WBC. The refere nce range was not u sed to interpret this result as normal/abnor mal. % Neutros (test code = 70 % 429) % Lymphs (test code = 20 % 430) % Monos (test code = 7 % 431) % Eos (test code = 432) 2 % % Baso (test code = 437) 0 % # Neutros (test code = 2.45 See_Comment [Aut omated message] 670) The system [employer] generated this result transmitted ref erence range: 1.56 - 6 .13 K/L. The refe rence range was not u sed to interpret this result as normal/abnor mal. # Lymphs (test code = 0.71 See_Comment L [Auto mated message] 414) The system [employer] generated this result transmitted ref erence range: 1.18 - 3 .74 K/L. The refe rence range was not u sed to interpret this result as normal/abnor mal. # Monos (test code = 0.25 See_Comment [Autom ated message] 415) The system [employer] generated this result transmitted ref erence range: 0.24 - 0 .36 K/L. The refe rence range was not u sed to interpret this result as normal/abnor mal. # Eos (test code = 416) 0.06 See_Comment [Au tomated message] The system [employer] generated this result transmitted ref erence range: 0.04 - 0 .36 K/L. The refe rence range was not u sed to interpret this result as normal/abnor mal. # Baso (test code = 417) 0.01 See_Comment [A utomated message] The system [employer] generated this result transmitted ref erence range: 0.01 - 0 .08 K/L. The refe rence range was not u sed to interpret this result as normal/abnor mal. Immature 0 % 0-1 Granulocytes-Relative (test code = 2801) Lab Interpretation (test Abnormal code = 15486-5) [facility] W/PLT COUNT & AUTO [id number] 05:27:00 Test Item Value Reference Range Interpretation Comments WHITE BLOOD CELL COUNT (BEAKER) 3.5 K/ L 3.5-10.5 (test code = 775) RED BLOOD CELL COUNT (BEAKER) 3.29 M/ L 3.93-5.22 L (test code = 761) HEMOGLOBIN (BEAKER) (test code = 9.8 GM/DL 11.2-15.7 L 410) HEMATOCRIT (BEAKER) (test code = 31.2 % 34.1-44.9 L 411) MEAN CORPUSCULAR VOLUME (BEAKER) 94.8 fL 79.4-94.8 (test code = 753) MEAN CORPUSCULAR HEMOGLOBIN 29.8 pg 25.6-32.2 (BEAKER) (test code = 751) MEAN CORPUSCULAR HEMOGLOBIN CONC 31.4 GM/DL 32.2-35.5 L (BEAKER) (test code = 752) RED CELL DISTRIBUTION WIDTH 13.2 % 11.7-14.4 (BEAKER) (test code = 412) PLATELET COUNT (BEAKER) (test 155 K/CU MM 150-450 code = 756) MEAN PLATELET VOLUME (BEAKER) 9.7 fL 9.4-12.3 (test code = 754) NUCLEATED RED BLOOD CELLS 0 /100 WBC 0-0 (BEAKER) (test code = 413) NEUTROPHILS RELATIVE PERCENT 70 % (BEAKER) (test code = 429) LYMPHOCYTES RELATIVE PERCENT 20 % (BEAKER) (test code = 430) MONOCYTES RELATIVE PERCENT 7 % (BEAKER) (test code = 431) EOSINOPHILS RELATIVE PERCENT 2 % (BEAKER) (test code = 432) BASOPHILS RELATIVE PERCENT 0 % (BEAKER) (test code = 437) NEUTROPHILS ABSOLUTE COUNT 2.45 K/ L 1.56-6.13 (BEAKER) (test code = 670) LYMPHOCYTES ABSOLUTE COUNT 0.71 K/ L 1.18-3.74 L (BEAKER) (test code = 414) MONOCYTES ABSOLUTE COUNT (BEAKER) 0.25 K/ L 0.24-0.36 (test code = 415) EOSINOPHILS ABSOLUTE COUNT 0.06 K/ L 0.04-0.36 (BEAKER) (test code = 416) BASOPHILS ABSOLUTE COUNT (BEAKER) 0.01 K/ L 0.01-0.08 (test code = 417) IMMATURE GRANULOCYTES-RELATIVE 0 % 0-1 PERCENT (BEAKER) (test code = 2801) SARS-CoV2/RT-PCR (Asymptomatic ONLY)2020-08-26 12:43:00 Test Item Value Reference Range Interpretation Comments SARS-COV2/RT-PCR Negative Not Detected, (test code = Negative, See 87633-2) external report for linked test SARS-COV-2 [facility] PERFORMING LAB (test code = 38117-8) KIM (test code = Negative result for this KIM) test determines that SARS-CoV-2 RNA was not present in the specimen above the Limit of Detection (LOD). However, Negative results do not preclude SARS-CoV-2 infection and should not be used as the sole basis for treatment or patient management decisions. Negative results must be combined with clinical observations, patient history, and epidemiological information. A false negative result may occur if a specimen is improperly collected, transported or handled. A false negative result should be considered if patient's recent exposures or clinical presentation indicate that COVID-19 (SARS-CoV-2) is likely and diagnostic tests for other causes of illness are negative. Re-testing should be considered in cases of suspected false negatives. The limit of detection for this assay is 800 copies/mL. This SARS CoV-2 test is a real-time RT-PCR test intended for the qualitative detection of nucleic acid from SARS-CoV-2 in a nasopharyngeal swab specimen collected from individuals suspected of COVID-19 by their healthcare provider. This test has not been Food and Drug Administration (FDA) cleared or approved. This is a modified version of an approved Emergency Use Authorization (EUA) and is in the process of review by the FDA. Once authorized by the FDA, the issued EUA will be effective until the declaration that circumstances exist justifying the authorization of the emergency use of in vitro diagnostic tests for detection and/or diagnosis of COVID-19 is terminated under Section 564(b)(2) of the Act or the EUA is revoked under Section 564(g) of the Act. Fact Sheet for Healthcare Providers:https://www.DiJiPOP/sites/default/f caro/product/documents/F act_Sheet_HC_Providers_L uni_AMDW-LdZ-0.pdf Fact Sheet for Healthcare Patients:https://www.Peerlyst/sites/default/fi les/product/documents/Fa ct_Sheet_Patients_Lyra_S ARS-CoV-2.pdf Performing Laboratory:[facility], [place] [address] [place], [place] [address]ARS-COV2/RT-PCR ([facility])2020-08-26 12:43:00 Test Item Value Reference Range Interpretation Comments SARS-COV2/RT-PCR (test Negative Not Detected, Negative, code = 9204870) See external report for linked test SARS-COV-2 PERFORMING LAB [facility] (test code = 8157797) Negative result for this test determines that SARS-CoV-2 RNA was not present in the specimen above the Limit of Detection (LOD). However, Negative results do not preclude SARS-CoV-2 infection and should not be used as the sole basis for treatment or patient management decisions. Negative results mustbe combined with clinical observations, patient history, and epidemiological information. A false negative result may occur if a specimen is improperly collected, transported or handled. A false negative result should be considered if patient's recent exposures or clinical presentation indicate that COVID-19 (SARS-CoV-2) is likely and diagnostic tests for other causes of illness are negative. Re-testing should be considered in cases of suspected false negatives.The limit of detection for this assay is 800 copies/mL.This SARS CoV-2 test is a real-time RT-PCR test intended for the qualitative detection of nucleic acid from SARS-CoV-2 in a nasopharyngeal swab specimen collected from individuals susp ected of COVID-19 by their healthcare provider.This test has not been Food and Drug Administration (FDA) cleared or approved. This is a modified version of an approved Emergency Use Authorization (EUA) and is in the process of review by the FDA. Once authorized by the FDA, the issued EUA will be effective until the declaration that circumstances exist justifying the authorization of the emergency use of in vitro diagnostic tests for detection and/or diagnosis of COVID-19 is terminated under Section 564(b)(2) of the Act or the EUA is revoked under Section 564(g) of the Act.Fact Sheet for Healthcare Providers:https://www.[employer]mosferiq.Mentor Me/sites/default/files/product/documents/Fact_Shee x_FV_Dhtfdyxuf_Qabu_RBNP-EeW-8.pdfFact Sheet for Healthcare Patients:https://www.[employer]mos[employer]iq.Mentor Me/sites/default/files/product/ documents/Qxpy_Zqjij_Hktupvdq_Wpuw_SCPG-DxU-4.pdfPerforming Laboratory:[facility], [place] [address]ZEDZS METABOLIC PANEL 2020-08-26 06:19:00 Test Item Value Reference Range Interpretation Comments SODIUM (BEAKER) 136 meq/L 136-145 (test code = 381) POTASSIUM (BEAKER) 3.9 meq/L 3.5-5.1 (test code = 379) CHLORIDE (BEAKER) 104 meq/L 98-107 (test code = 382) CO2 (BEAKER) (test 24 meq/L 22-29 code = 355) BLOOD UREA NITROGEN 12 mg/dL 7-21 (BEAKER) (test code = 354) CREATININE (BEAKER) 0.61 mg/dL 0.57-1.25 (test code = 358) GLUCOSE RANDOM 94 mg/dL 70-105 (BEAKER) (test code = 652) CALCIUM (BEAKER) 8.7 mg/dL 8.4-10.2 (test code = 697) EGFR (BEAKER) (test 101 mL/min/1.73 ESTIM ATED GFR IS code = 1092) sq m NOT ACCURATE CREATININE CLEARANCE IN PREDICTING GLOMERULAR FILTRATION RATE . ESTIMATED GFR I S NOT APPLICABLE FOR DIALYSIS PATIEN TS. Computer Repair Engineer ID - PIAYA [id number] 06:19:00 Test Item Value Reference Range Interpretation Comments MAGNESIUM (BEAKER) (test code = 1.8 mg/dL 1.6-2.6 627) Computer Repair Engineer ID - DONNA LHEPATIC FUNCTION [id number] 06:19:00 Test Item Value Reference Range Interpretation Comments TOTAL PROTEIN (BEAKER) (test code = 7.1 gm/dL 6.0-8.3 770) ALBUMIN (BEAKER) (test code = 1145) 3.7 g/dL 3.5-5.0 BILIRUBIN TOTAL (BEAKER) (test code 0.8 mg/dL 0.2-1.2 = 377) BILIRUBIN DIRECT (BEAKER) (test 0.6 mg/dL 0.1-0.5 H code = 706) ALKALINE PHOSPHATASE (BEAKER) (test 580 U/L 40-150 H code = 346) AST (SGOT) (BEAKER) (test code = 68 U/L 5-34 H 353) ALT (SGPT) (BEAKER) (test code = 82 U/L 6-55 H 347) Computer Repair Engineer ID - PIAYA LCBC W/PLT COUNT & AUTO [id number] 05:37:00 Test Item Value Reference Range Interpretation Comments WHITE BLOOD CELL COUNT (BEAKER) 4.9 K/ L 3.5-10.5 (test code = 775) RED BLOOD CELL COUNT (BEAKER) 3.26 M/ L 3.93-5.22 L (test code = 761) HEMOGLOBIN (BEAKER) (test code = 9.8 GM/DL 11.2-15.7 L 410) HEMATOCRIT (BEAKER) (test code = 31.2 % 34.1-44.9 L 411) MEAN CORPUSCULAR VOLUME (BEAKER) 95.7 fL 79.4-94.8 H (test code = 753) MEAN CORPUSCULAR HEMOGLOBIN 30.1 pg 25.6-32.2 (BEAKER) (test code = 751) MEAN CORPUSCULAR HEMOGLOBIN CONC 31.4 GM/DL 32.2-35.5 L (BEAKER) (test code = 752) RED CELL DISTRIBUTION WIDTH 13.2 % 11.7-14.4 (BEAKER) (test code = 412) PLATELET COUNT (BEAKER) (test 171 K/CU MM 150-450 code = 756) MEAN PLATELET VOLUME (BEAKER) 9.8 fL 9.4-12.3 (test code = 754) NUCLEATED RED BLOOD CELLS 0 /100 WBC 0-0 (BEAKER) (test code = 413) NEUTROPHILS RELATIVE PERCENT 69 % (BEAKER) (test code = 429) LYMPHOCYTES RELATIVE PERCENT 22 % (BEAKER) (test code = 430) MONOCYTES RELATIVE PERCENT 7 % (BEAKER) (test code = 431) EOSINOPHILS RELATIVE PERCENT 2 % (BEAKER) (test code = 432) BASOPHILS RELATIVE PERCENT 0 % (BEAKER) (test code = 437) NEUTROPHILS ABSOLUTE COUNT 3.35 K/ L 1.56-6.13 (BEAKER) (test code = 670) LYMPHOCYTES ABSOLUTE COUNT 1.06 K/ L 1.18-3.74 L (BEAKER) (test code = 414) MONOCYTES ABSOLUTE COUNT (BEAKER) 0.36 K/ L 0.24-0.36 (test code = 415) EOSINOPHILS ABSOLUTE COUNT 0.09 K/ L 0.04-0.36 (BEAKER) (test code = 416) BASOPHILS ABSOLUTE COUNT (BEAKER) 0.02 K/ L 0.01-0.08 (test code = 417) IMMATURE GRANULOCYTES-RELATIVE 0 % 0-1 PERCENT (BEAKER) (test code = 2801) NLE-VVPTRXG4575-21-14 00:00:00Ordered by an unspecified provider.[facility] CenterCulture, Mffbm4965-38-15 15:57:00 Test Item Value Reference Range Interpretation Comments Culture, Urine (test NF code = URC) Culture, Urine (test 10 NSF code = URC1) * This is an EDIT ED result. * A prior r esult that was reported as final has been changed. Vfnmxdpppo6557-75-10 22:53:00 Test Item Value Reference Range Interpretation [...] = UACAST) CAST LPF Urine Source: Urine [id number] SURGICAL PATHOLOGY, LEVEL [id number] 14:31:[address] [address] Laboratory Printed: 07/09/17 [facility] DAEMPathology Page: 1 Patient: ZEKE ROMERO Birthdate: 1960 Age/Sex: 56/F Spec#: [id number]: HERMES SALAZAR Specimen Date: 07/08/17 [...] Conway Entered by:07/09/17 - 1430 MAY PROCEDURES: 34312,93247/4 Patient: ZEKE ROMERO Re07/03/17Loc: T4-A MR#: [id number] CONTINUED ON NEXT PAGE Dis: 07/09/17ta: DIS IN - [address] [address] Laboratory Printed: 07/09/[address] [place] [address] Page: 2 Patient: ZEKE ROEMRO Kaiden [id number] (Continued) GROSS DESCRIPTION A. LIVER BIOPSY LEFT [...] 07/09/17 Patient: ZEKE ROMERO Re07/03/17Loc: T4-A MR#: [id number] END OF REPORT Dis: 07/09/17ta: DIS JJXxzihyjnz6637-05-97 05:13:00 Test Item Value Reference Range Interpretation [...] U/L 8-55 H = ALT) Reference Lab Acevipz7764-69-86 04:14:00 Test Item Value Reference Range Interpretation Comments Reference Lab 10 U/mL 0-35 Laurent ECLIA Testing (test code methodolo gyPerformed at: HD = CA199) - [facility] [id number] Di aimee: Chico Suero MD, Phone : [phone] Reference Lab [id number] 16:14:00 Test Item Value Reference Range Interpretation Comments Reference Lab Testing 128.5 Units 0.0-20.0 H (test code = MARLON) Negative 0.0 - 20.0 Equivocal 20.1 - 24.9 Positive >24.9Mitochondr ial (M2) Antibodies are found in 90-96% ofpatients with primary biliary cirrhosis.Perfo rmed at: - Lab[address] [id number] Director: Pj Rider MD, [facility] ne: [phone] Reference Lab Sbdiwkr7385-12-82 16:14:00 Test Item Value Reference Range Interpretation [...] testing of p ositive sera with both MS-3 and MPO-ANCA enzyme immunoassays. A s many as 5% serumsamples are positive only b y EIA. Ref. AM J Clin Mdyuci2229;111: 507-513. Reference Lab <1:20 titer Neg:<1:20 The atypical p ANCA pattern Testing (test has been obser chelita in code = ATANCA) asignificant percentage of patients with u lcerative colitis,primary sclerosing cholangitis and autoimmune hepatitis.Perfo rmed at: - [facility] [address] [id number] Di aimee: Chester ramírez MD, Phone: [phone] Uhkbzjfpw2749-02-36 05:12:00 Test Item Value Reference Range Interpretation [...] 8-55 H code = ALT) Reference Lab Zlnckmr6487-20-10 22:07:00 Test Item Value Reference Range Interpretation Comments Reference Lab Testing 785 IU/L 39-117 H (test code = ISOALKT) Reference Lab Testing 25 % 14-68 (test code = ISOALKBT) Reference Lab Testing 74 % 18-85 (test code = ISOALKLT) Reference Lab Testing 1 % 0-18 Perfor med at: HD - (test code = ISOALKIT) [facility] [address] [place], [place] [id number] b Director: Chico Suero MD, Phone: [phone] [facility] at: [facility] [address] [id number] Di aimee: Chester ramírez MD, Phone: [phone] Ldlovcegz1639-74-46 11:48:00 Test Item Value Reference Range Interpretation [...] code = ALT) 92 U/L 8-55 H Pkjnvuaoy4875-67-87 06:08:00 Test Item Value Reference Range Interpretation [...] 8.5 mg/dL 7.8-10.44 N code = CA) Ssxjezqlp1427-81-54 06:06:00 Test Item Value Reference Range Interpretation [...] code = ALT) 129 U/L 8-55 H Ikxdwplojn7247-87-34 05:57:00 Test Item Value Reference Range Interpretation [...] code = BASO#) 0.0 thou/uL 0.0-0.2 N Mfdspsgkrgr8581-51-00 05:55:00 Test Item Value Reference Range Interpretation [...] - 4. 0 CRITICAL: > 4.0 Anticoagulant? CKHLAcxfrbnfg1107-74-27 05:36:00 Test Item Value Reference Range Interpretation [...] 8.9 mg/dL 7.8-10.44 N code = CA) Uysbqizuc5005-65-73 05:33:00 Test Item Value Reference Range Interpretation [...] code = ALT) 160 U/L 8-55 H Jhhyxxtbeo5038-30-88 05:28:00 Test Item Value Reference Range Interpretation [...] 0.1 thou/uL 0.0-0.2 N Chemistry - [facility] Dxpsffb0432-60-46 13:02:00 Test Item Value Reference Range Interpretation [...] hod: Enzyme Linked Fluorescent Immunoassay ([facility])Reference s: [employer] [place] [facility] [employer] - Directions for se, June,August 02, [employer] ic. Vtwpmujtt0307-59-53 05:00:00 Test Item Value Reference Range Interpretation [...] code = ALT) 144 U/L 8-55 H Znoihtyvb2796-48-05 04:50:00 Test Item Value Reference Range Interpretation [...] 8.4 mg/dL 7.8-10.44 N code = CA) Jgprsooshe7469-17-41 04:39:00 Test Item Value Reference Range Interpretation [...] code = BASO#) 0.0 thou/uL 0.0-0.2 N Eqmgauxdc7668-54-67 17:07:00 Test Item Value Reference Range Interpretation Comments Chemistry (test code = IGG) 1032.00 mg/dL 552-1631 N Qwamjqyct8691-72-10 17:07:00 Test Item Value Reference Range Interpretation Comments Chemistry (test code = IGM) 215.00 mg/dL 33-293 N Dntibjvpbf4348-44-95 00:50:00 Test Item Value Reference Range Interpretation [...] UABLD) Urine Source: Urine Clean CatchChemistry - Koqbdetx2342-20-20 00:25:00 Test Item Value Reference Range Interpretation Comments Chemistry - Specials (test Non-Reactive NonReactive code = THEPAIGM) Chemistry - Specials (test Non-Reactive S/CO NonReactive code = THBSAG) Chemistry - Specials (test Non-Reactive NonReactive code = INTHBCM) Chemistry - Specials (test Non-Reactive NonReactive code = INTHEPC) Fsliuikdn4037-23-38 22:12:00 Test Item Value Reference Range Interpretation [...] code 196 U/L 8-55 H = ALT) Ixacewuph6757-32-51 22:12:00 Test Item Value Reference Range Interpretation Comments Chemistry (test code = LIP) 22 U/L 8-78 N Thagjqpkhu6376-75-87 21:50:00 Test Item Value Reference Range Interpretation [...] code = BASO#) 0.1 thou/uL 0.0-0.2 N Pfykrbtfg3252-39-94 22:49:00 Test Item Value Reference Range Interpretation [...] 78 U/L 8-55 H code = ALT) Izdttaquk9193-06-51 22:49:00 Test Item Value Reference Range Interpretation Comments Chemistry (test code = LIP) 12 U/L 8-78 N Gahshbpvqc1272-89-23 22:24:00 Test Item Value Reference Range Interpretation [...] code = BASO#) 0.0 thou/uL 0.0-0.2 N Wibdavqgjv3709-93-34 22:00:00 Test Item Value Reference Range Interpretation [...] UABLD) Negative Negative Urine Source: Urine Clean RnyisQuaoenoy2799-71-58 09:28:00 Test Item Value Reference Range Interpretation Comments Accuchek (test code = ACU) 99 mg/dL 70-110 N Kytttubkxs6721-55-19 09:14:00 Test Item Value Reference Range Interpretation [...] UABLD) Negative Negative Urine Source: Urine Clean WaslzLttuvqlawr2804-39-52 21:28:00 Test Item Value Reference Range Interpretation [...] UABLD) Negative Negative Urine Source: Urine Clean DcohbJoorvqcuw6354-22-92 21:09:00 Test Item Value Reference Range Interpretation [...] 95 U/L 8-55 H code = ALT) Tpidvxziq4918-48-81 21:09:00 Test Item Value Reference Range Interpretation Comments Chemistry (test code = LIP) 39 U/L 8-78 N Osfojlkckj3300-22-37 20:49:00 Test Item Value Reference Range Interpretation [...] code = BASO#) 0.0 thou/uL 0.0-0.2 N Pwobmtsvcn4724-53-77 21:34:00 Test Item Value Reference Range Interpretation [...] desired. Presu mptive positive [facility]. Urine Source: Urine Clean XnfclMxypsyfyjo1541-51-88 19:17:00 Test Item Value Reference Range Interpretation [...] = UABLD) Negative Negative Urine Source: Urine HvywodPxfdrxlee0029-95-22 18:48:00 Test Item Value Reference Range Interpretation [...] code 84 U/L 8-55 H = ALT) Fqkvalcmj8115-22-75 18:48:00 Test Item Value Reference Range Interpretation Comments Chemistry (test code = JORGE) 53.0 U/L 25-125 N Mjqkbmaiq6984-85-40 18:48:00 Test Item Value Reference Range Interpretation Comments Chemistry (test code = LIP) 10 U/L 8-78 N Xqwobiqzfw9368-68-41 18:19:00 Test Item Value Reference Range Interpretation [...] = BASO#) 0.1 thou/uL 0.0-0.2 N Culture, Gsest5585-43-48 10:22:00 Test Item Value Reference Range Interpretation Comments Culture, Urine (test code = URC) NF N Culture, Urine (test code = URC1) 10 MSF N Lpjdaqtty4750-19-32 17:38:00 Test Item Value Reference Range Interpretation Comments Chemistry (test code = PHOS) 2.9 mg/dL 2.3-4.7 N Uotvhwfsg2581-16-79 17:04:00 Test Item Value Reference Range Interpretation [...] H = ALT) Chemistry - BNP, HgbA1c, PXSn5553-84-29 17:04:00 Test Item Value Reference Range Interpretation Comments Chemistry - BNP, 4.9 % 4.0-6.0 N Therapeutic goals for glycemic HgbA1c, PTHi (test control ( ADA)Adults:- Goal of code = EOOR2YS) therapy: Les s than 7.0% HbA1c- Action suggeste d: Greater than 8.0% WiE4wVzxyb tric patients:- Toddlers and pr eschoolers: Less than 8.5% (but Greater than 7.5%)- Kaetlynn ool age (6-12 years): Less th an 8%- Adolescents and young adults (13-19 years): Less than 7.5%Diagnosing diabetes (ADA)- HbA1c: Greater than or equal to 6.5% Values of 5.7 - 6.4% indicate HIGH risk for developing DiabetesInterna tional Expert Committee Repor t on the Role of the T4WMepdf in the Diagnosis of Di abetes. Diabetes Care 2009July;32(7): 1327-1334ADA, Diagnosis cla ssification of diabetes [facility].Diabetes Care 2010; 33 S uppl 1:S62 Zvbhefwme3190-55-88 16:59:00 Test Item Value Reference Range Interpretation Comments Chemistry (test code = CRP) 1.16 mg/dL = or < 0.5 H What test does the doctor want? C-REACTIVE PROTEIN (CRP)Cyibkcmida3764-03-27 16:53:00 Test Item Value Reference Range Interpretation [...] HPF None Seen Urine Source: Urine Clean [id number] 16:46:00 Test Item Value Reference Range Interpretation [...] code = BASO#) 0.1 thou/uL 0.0-0.2 N [id number] 21:59:00 Test Item Value Reference Range Interpretation [...] Urine Clean CatchSepsis - Lactic Acid >2 [id number] 23:59:00 Test Item Value Reference Range Interpretation Comments Sepsis - Lactic Additional Lactate testin g will be Acid >2 Rflx performed in 3 hrs (test code = according to alfred cox [id number]) SepsisProtocol. [id number] 21:12:00 Test Item Value Reference Range Interpretation Comments Chemistry (test code = JORGE) 59.0 U/L 25-125 N [id number] 20:59:00 Test Item Value Reference Range Interpretation [...] 87 U/L 8-55 H code = ALT) [id number] 20:59:00 Test Item Value Reference Range Interpretation Comments Chemistry (test code = LIP) 32 U/L 8-78 N Chemistry - [id number] 20:59:00 Test Item Value Reference Range Interpretation Comments Chemistry - Lactate (test code = 2.1 mmol/L 0.5-2.2 N LACTSEP-T) [id number] 20:43:00 Test Item Value Reference Range Interpretation [...] = UABLD) Negative Negative Urine Source: Urine [id number] 20:37:00 Test Item Value Reference Range Interpretation [...]
[2020-09-05] MEDS ORDERED: MORPHINE 4 MG/ML SYR ONE (05:05)
[2020-09-05] MEDS ORDERED: ONDANSETRON 4 MG/2 ML VIAL ONE (05:05)
[2020-09-05 05:10] LABS: Absolute Lymphocytes (CBC) 1.1 K/uL (0.7-4.9); Basophils % 0.7 % (0-1.3); Hematocrit 34.2 % (36.0-45.0); Lymphocytes % 16.8 % (15.3-44.8); MPV 8.3 fL (7.6-11.3)
[2020-09-05 05:38] LABS: ALT/SGPT 141 U/L (12-78); AST/SGOT 115 U/L (15-37); Albumin 3.4 g/dL (3.4-5.0); Alkaline Phosphatase 803 U/L (45-117); BUN Blood Urea Nitrogen 14 mg/dL (7-18); Bicarbonate 25 mmol/L (21-32); Bilirubin Direct 0.5 mg/dL (0-0.2); Bilirubin Total 0.7 mg/dL (0.2-1.0); Glucose Level 128 mg/dL (74-106); Lipase 14816 U/L (73-393); Protein, Total 8.3 g/dL (6.4-8.2); Sodium Level 139 mmol/L (136-145)
--- NOTE | 2020-09-05 07:54 | EDPHYS ---
Physician Documentation [facility] Name: Yessenia Aleman Age: 59 yrs Sex: Female : 1960 Arrival Date: 09/05/2020 Time: 04:19 Bed 17 Private MD: ED Physician Jesse Mallory HPI: 09/05 04:47 This 59 yrs old Female presents to ER via Ambulatory with complaints of pkl Abdominal Pain. 04:47 The patient presents with abdominal pain in the right upper quadrant. Onset: The pkl symptoms/episode began/occurred yesterday. The symptoms radiate to right back. Associated signs and symptoms: Pertinent positives: nausea. Historical: - Allergies: 04:29 Codeine; ak2 - Home Meds: 07:52 gabapentin Oral [Active]; losartan 100 mg Oral tab 1 tab once daily for Hypertension jl7 [Active]; [place] 10-325 mg Oral tab 1 tab twice a day for Pain [Active]; Phenergan Oral [Active]; Phenergan Supp Rectal [Active]; Ursodiol Oral [Active]; - PMHx: 07:52 Anxiety; Arthritis; biliary chirrosis; biliary disease; CHF; Chronic Pancreatitis; jl7 Cirrhosis; Hypertension; Pancreatitis; Pneumonia; - PSHx: 07:52 Cholecystectomy; Appendectomy; Bile duct stent; jl7 - Immunization history:: Adult Immunizations up to date. - Social history:: Smoking status: unknown. ROS: 04:52 Eyes: Negative for injury, pain, redness, and discharge, ENT: Negative for injury, pkl pain, and discharge, Neck: Negative for injury, pain, and swelling, Cardiovascular: Negative for chest pain, palpitations, and edema, Respiratory: Negative for shortness of breath, cough, wheezing, and pleuritic chest pain. 04:52 Abdomen/GI: Positive for abdominal pain, nausea, of the right upper quadrant. 04:52 Back: Negative for acute changes. 04:52 : Negative for urinary symptoms. 04:52 MS/extremity: Negative for acute changes. 04:52 Skin: Negative for rash. 04:52 Neuro: Negative for altered mental status, loss of consciousness. Exam: 04:52 Head/Face: Normocephalic, atraumatic. Eyes: Pupils equal round and reactive to light, pkl extra-ocular motions intact. Lids and lashes normal. Conjunctiva and sclera are non-icteric and not injected. Cornea within normal limits. Periorbital areas with no swelling, redness, or edema. ENT: Nares patent. No nasal discharge, no septal abnormalities noted. Tympanic membranes are normal and external auditory canals are clear. Oropharynx with no redness, swelling, or masses, exudates, or evidence of obstruction, uvula midline. Mucous membranes moist. Neck: Trachea midline, no thyromegaly or masses palpated, and no cervical lymphadenopathy. Supple, full range of motion without nuchal rigidity, or vertebral point tenderness. No Meningismus. Chest/axilla: Normal chest wall appearance and motion. Nontender with no deformity. No lesions are appreciated. Cardiovascular: Regular rate and rhythm with a normal S1 and S2. No gallops, murmurs, or rubs. Normal PMI, no JVD. No pulse deficits. Respiratory: Lungs have equal breath sounds bilaterally, clear to auscultation and percussion. No rales, rhonchi or wheezes noted. No increased work of breathing, no retractions or nasal flaring. 04:52 Abdomen/GI: Bowel sounds: normal, Palpation: soft, mild abdominal tenderness, in the right upper quadrant. 04:52 Back: Exam negative for acute changes. 04:52 : Exam negative for acute changes. 04:52 Musculoskeletal/extremity: Exam is negative for acute changes. 04:52 Skin: Exam negative for rash. 04:52 Neuro: Orientation: is normal, Mentation: is normal, Cranial nerves: grossly normal, Motor: is normal. Vital Signs: 04:27 BP 145 / 100; Pulse 91; Resp 20; Temp 97.8; Pulse Ox 99% on R/A; Weight 77.11 kg; ak2 Height 5 ft. (152.40 cm); 05:58 BP 138 / 87; Pulse 86; Resp 20; Pulse Ox 100% on R/A; ak2 07:49 BP 160 / 91; Pulse 72; Resp 15; Pulse Ox 97% ; jl7 04:27 Body Mass Index 33.20 (77.11 kg, 152.40 cm) ak2 MDM: 04:38 Patient medically screened. pkl 07:48 Data reviewed: vital signs, nurses notes, lab test result(s), radiologic studies, CT pkl scan. ED course: Talked to Dr. Omer, transfer to [facility]. 09/05 04:43 Order name: Basic Metabolic Panel; Complete Time: 05:47 pkl 09/05 04:43 Order name: CBC with Diff; Complete Time: 05:34 pkl 09/05 04:43 Order name: Hepatic Function; Complete Time: 05:47 pkl 09/05 04:43 Order name: Lipase; Complete Time: 05:47 pkl 09/05 08:44 Order name: SARS-COV-2 RT PCR EDMS 09/05 04:43 Order name: IV Saline Lock; Complete Time: 07:16 pkl 09/05 04:44 Order name: CT Abd/Pelvis - IV Contrast Only pkl 09/05 04:43 Order name: Labs collected and sent; Complete Time: 07:16 pkl Administered Medications: 04:59 Drug: morphine 4 mg Route: IVP; Site: left forearm; ak2 07:02 Follow up: Response: No adverse reaction jl7 04:59 Drug: Zofran (Ondansetron) 4 mg Route: IVP; Site: left forearm; ak2 07:02 Follow up: Response: No adverse reaction jl7 05:00 Drug: NS 0.9% 1000 ml Route: IV; Rate: 125 ml/hr; Site: left forearm; ak2 08:34 Follow up: Response: No adverse reaction; IV Status: Infusion continued upon transfer jl7 06:08 Drug: morphine 4 mg Route: IVP; Site: left forearm; ak2 07:02 Follow up: Response: No adverse reaction jl7 06:08 Drug: Zofran (Ondansetron) 4 mg Route: IVP; Site: left forearm; ak2 07:02 Follow up: Response: No adverse reaction jl7 08:06 Drug: morphine 4 mg Route: IVP; Site: left forearm; jl7 08:33 Follow up: Response: No adverse reaction; Pain is decreased jl7 Disposition: 09/05/20 07:53 Transfer ordered to [facility]. Diagnosis is Acute pancreatitis. Elevated liver functions. S/P Biliary stent placement. - Reason for transfer: Higher level of care. - Accepting physician is DR. Omer. - Condition is Stable. - Problem is new. - Symptoms have improved. Signatures: Dispatcher [employer] EDJesse Sutherland MD MD pkl Leal, Jahala, RN RN jl7 Cathryn Jordan RN RN ll1 Gerry Main2 Corrections: (The following items were deleted from the chart) 08:01 07:19 CORONAVIRUS+ ordered. EDMS EDMS 09:44 07:53 09/05/2020 07:53 Transfer ordered to [facility]. ll1 Diagnosis is Acute pancreatitis. Elevated liver functions. S/P Biliary stent placement. Reason for transfer: Higher level of care. Accepting physician is DR. Omer. Condition is Stable. Problem is new. Symptoms have improved. pkl
--- NOTE | 2020-09-05 07:54 | ER ---
Nurse's Notes [facility] Name: Yessenia Aleman Age: 59 yrs Sex: Female : 1960 Arrival Date: 09/05/2020 Time: 04:19 Bed 17 Private MD: Diagnosis: Acute pancreatitis. Elevated liver functions. S/P Biliary stent placement Presentation: 09/05 04:27 Chief complaint: Patient states: R flank pain x2 days. Coronavirus screen: Client ak2 denies travel out of the [place] in the last 14 days. Ebola Screen: Patient negative for fever greater than or equal to 101.5 degrees Fahrenheit, and additional compatible Ebola Virus Disease symptoms Patient denies exposure to infectious person. Patient denies travel to an Ebola-affected area in the 21 days before illness onset. No symptoms or risks identified at this time. Initial Sepsis Screen: Does the patient meet any 2 criteria? No. Patient's initial sepsis screen is negative. Does the patient have a suspected source of infection? No. Patient's initial sepsis screen is negative. Risk Assessment: Do you want to hurt yourself or someone else? Patient reports no desire to harm self or others. Onset of symptoms was September 03, 2020. 04:27 Method Of Arrival: Ambulatory ak2 04:27 Acuity: HOLLI 3 ak2 Triage Assessment: 04:29 General: Appears in no apparent distress. Behavior is calm, cooperative. Pain: ak2 Complains of pain in back and abdomen. GI: r side flank pain radiates to back. Historical: - Allergies: 04:29 Codeine; ak2 - Home Meds: 07:52 gabapentin Oral [Active]; losartan 100 mg Oral tab 1 tab once daily for Hypertension jl7 [Active]; [place] 10-325 mg Oral tab 1 tab twice a day for Pain [Active]; Phenergan Oral [Active]; Phenergan Supp Rectal [Active]; Ursodiol Oral [Active]; - PMHx: 07:52 Anxiety; Arthritis; biliary chirrosis; biliary disease; CHF; Chronic Pancreatitis; jl7 Cirrhosis; Hypertension; Pancreatitis; Pneumonia; - PSHx: 07:52 Cholecystectomy; Appendectomy; Bile duct stent; jl7 - Immunization history:: Adult Immunizations up to date. - Social history:: Smoking status: unknown. Screenin:31 Abuse screen: Denies threats or abuse. Denies injuries from another. Nutritional ak2 screening: No deficits noted. Tuberculosis screening: No symptoms or risk factors identified. Fall Risk None identified. Assessment: 04:31 General: Appears in no apparent distress. GI: Bowel sounds present X 4 quads. ak2 07:50 Reassessment: Patient appears in no apparent distress at this time. No changes from jl7 previously documented assessment. Patient and/or family updated on plan of care and expected duration. Pain level reassessed. Patient is alert, oriented x 3, equal unlabored respirations, skin warm/dry/pink. Vital Signs: 04:27 BP 145 / 100; Pulse 91; Resp 20; Temp 97.8; Pulse Ox 99% on R/A; Weight 77.11 kg; ak2 Height 5 ft. (152.40 cm); 05:58 BP 138 / 87; Pulse 86; Resp 20; Pulse Ox 100% on R/A; ak2 07:49 BP 160 / 91; Pulse 72; Resp 15; Pulse Ox 97% ; jl7 04:27 Body Mass Index 33.20 (77.11 kg, 152.40 cm) ak2 ED Course: 04:19 Patient arrived in ED. am4 04:27 Gerry Main is Primary Nurse. ak2 04:29 Triage completed. ak2 04:31 Patient has correct armband on for positive identification. ak2 04:31 No provider procedures requiring assistance completed. Inserted. ak2 04:38 Jesse Mallory MD is Attending Physician. pkl 04:47 Missed attempt(s): 20 gauge in right antecubital area. tt3 04:47 Missed attempt(s): 22 gauge in right hand. tt3 06:11 CT Abd/Pelvis - IV Contrast Only In Process Unspecified. EDMS 07:20 Primary Nurse role handed off by Gerry Main bd 07:49 Joo Samano RN is Primary Nurse. jl7 07:50 Pulse ox on. NIBP on. jl7 07:50 COVID swab sent to lab. jl7 07:53 Arm band placed on right wrist. jl7 Administered Medications: 04:59 Drug: morphine 4 mg Route: IVP; Site: left forearm; ak2 07:02 Follow up: Response: No adverse reaction jl7 04:59 Drug: Zofran (Ondansetron) 4 mg Route: IVP; Site: left forearm; ak2 07:02 Follow up: Response: No adverse reaction jl7 05:00 Drug: NS 0.9% 1000 ml Route: IV; Rate: 125 ml/hr; Site: left forearm; ak2 08:34 Follow up: Response: No adverse reaction; IV Status: Infusion continued upon transfer jl7 06:08 Drug: morphine 4 mg Route: IVP; Site: left forearm; ak2 07:02 Follow up: Response: No adverse reaction jl7 06:08 Drug: Zofran (Ondansetron) 4 mg Route: IVP; Site: left forearm; ak2 07:02 Follow up: Response: No adverse reaction jl7 08:06 Drug: morphine 4 mg Route: IVP; Site: left forearm; jl7 08:33 Follow up: Response: No adverse reaction; Pain is decreased jl7 Outcome: 07:53 ER care complete, transfer ordered by . tommie 09:44 Patient left the ED. ll1 Signatures: Dispatcher [employer] EDMS Melita Sousa Pin, MD MD pkl Joo Samano RN RN jl7 Cathryn Jordan RN RN ll1 Reinier Lamas Ashley am4 [place], Anthony ak
[2020-09-05 09:52] VITALS: TEMP 97.8
[2020-09-05 09:55] VITALS: BP 160/91; O2SAT 97
--- NOTE | 2020-09-05 17:55 | RAD REPORT ---
EXAM DESCRIPTION: CT - Abdomen Pelvis W Contrast - 09/05/2020 6:50 am CLINICAL HISTORY: The patient is 59 years old and is Female; ABD PAIN TECHNIQUE: Axial computed tomography images of the abdomen and pelvis with intravenous contrast. S agittal and coronal reformatted images were created and reviewed. This CT exam was performed using one or more of the following dose reduction techniques: automated exposure control, adjustment of t he mA and/or kV according to patient size, and/or use of iterative reconstruction technique. COMPARISON: CT of the abdomen and pelvis August 25, 2020 FINDINGS: LUNG BASES: Unremarkable. No mass. No consolidation. ABDOMEN: LIVER: Unremarkable. No mass. GALLBLADDER AND BILE DUCTS: Has been interval placement of a biliary stent. Gallbladder pneumob estrella is noted. Surgical clips are present in the right upper quadrant, consistent with previous cho lecystectomy. PANCREAS: No ductal dilation. No mass. SPLEEN: Unremarkable. ADRENALS: Unremarkable. No mass. KIDNEYS AND URETERS: Unremarkable. The kidneys enhance symmetrically. No obstructing renal or ure teral calculus is seen. No hydronephrosis or hydroureter. No perinephric fluid or stranding. STOMACH AND BOWEL: The stomach is decompressed. The small bowel is normal in caliber. Stool is pr esent throughout colon. There is no mucosal thickening or evidence of bowel obstruction. PELVIS: APPENDIX: The appendix is surgically absent. BLADDER: Unremarkable. No mass. REPRODUCTIVE: Unremarkable as visualized. ABDOMEN and PELVIS: INTRAPERITONEAL SPACE: Unremarkable. No free air. No significant fluid collection. BONES/JOINTS: Multilevel degenerative change of the spine is present. SOFT TISSUES: The soft tissues are normal. VASCULATURE: Unremarkable. No abdominal aortic aneurysm. LYMPH NODES: Unremarkable. No enlarged lymph nodes. IMPRESSION: 1. Biliary stent in place. No definite ductal dilatation. Mild pneumobilia. 2. Moderate stool burden without obstruction. Electronically signed by: Tiana Hunt MD 09/05/2020 6:23 AM CDT Due to temporary technical issues with the PACS/Fluency reporting system, reports are being signed by the in house radiologists without review as a courtesy to insure prompt reporting. The interpreting radiologist is fully responsible for the content of the report.
== END 2020-09-05 09:44 | disposition short-term general hospital (02) ==
LOC: ER 04:16
DX: K85.90 Acute pancreatitis without necrosis or infection, unspecified (principal); R94.5 Abnormal results of liver function studies; I10 Essential (primary) hypertension; I50.9 Heart failure, unspecified; Z98.890 Other specified postprocedural states; Z20.822 Contact with and (suspected) exposure to COVID-19; Z88.5 Allergy status to narcotic agent
CPT/HCPCS: 85025; 80048; 36415; 80076; 83690; 74177; U0003; Q9967; J2405; 96361; 96374; 96375; 99283

== ENCOUNTER 2020-10-05 22:05 | Emergency (ER) | payer OTHER ==
--- OUTSIDE RECORDS SUMMARY | 2020-10-05 22:12 | XMS REPORT | Continuity of Care Document ---
:1960 Author Organization [facility] t Address [address] [place] [address] Care Team Providers Name Role Phone Prezas Primary Care Physician Colette Bledsoe Attending Clinician Luis Antonio Nguyễn MD Attending Clinician Gianfranco Barrios Attending Clinician Unavailable Linsey WEBSTER, Alan Attending Clinician Val Hicks MD Attending Clinician LUIS ANTONIO NGUYỄN Attending Clinician Unavailable Torrie WEBSTER Attending Clinician Matthew Guan MD Attending Clinician Christopher Montenegro DO Attending Clinician Keira WEBSTER, S Attending Clinician Collin PACSydnie Attending Clinician Doctor Unassigned, Name Attending Clinician Unavailable Only, Test Attending Clinician Unavailable Sumit MA Attending Clinician Rayray Ayala MD Attending Clinician Pob, Lab Main Attending Clinician Unavailable Ron CHEMICAL LAB TECHNICIAN Attending Clinician Lab, Fam Pob I Attending Clinician Unavailable Guerline Slade Attending Clinician Kenan WEBSTER, Maxine Attending Clinician James WEBSTER Attending Clinician Micaela WEBSTER Attending Clinician Mazin WBESTER Attending Clinician Sonya HALL, G Attending Clinician Won Fisher MD Attending Clinician Singer CANALES Attending Clinician Christina WEBSTER, Obdulia Attending Clinician RAFAEL Mai-C Attending Clinician Unavailable Haley Cox Attending Clinician Unavailable PROVIDER, TEMP Attending Clinician Unavailable RADU Attending Clinician Unavailable To Attending Clinician Unavailable KRIS Attending Clinician Unavailable Bia CASTILLO Attending Clinician Unavailable LUIS ANTONIO NGUYỄN Admitting Clinician Unavailable Keira WEBSTER, S Admitting Clinician Diego Grigsby MD Admitting Clinician Haley Cox Admitting Clinician Unavailable Payers Payer Name Policy Type Policy Effective Date Expiration Date Sour ce Number CIGNA - MGD CARECIGNA [id number] 2018 DIONICIO Echevarria HMO/POS/OPEN 00:00:00 - Medical [id number]/ Ce nter 2019-PresentHMO/POS MEDICAREMEDICARE A [id number] 2015 ANDRES Hui [id number]-P 00:00:00 - Medical resentMedicare Center Problems Condition Condition Condition Status Onset Resolution Last Treating Co mments Source Name Details Category Date Date Treatment Clinician Date Pancreatit Pancreatit Disease Active [facility] is, acute is, acute 5-25 [facility] - 00:[facility]: Medical 00 Center Primary Primary Disease Active [facility] biliary biliary 5-16 [facility] cirrhosis cirrhosis 00:00: [facility] 00 Center S/P ERCP S/P ERCP Disease [facility] - 00:[facility]: Medical 00 [place] Abdominal Abdominal Disease Active [facility] pain, pain, -07 [facility] - acute, acute, 00:00: Medical right right 00 Center upper upper quadrant quadrant Hypokalemi Hypokalemi Disease Active [facility] a a - [facility] - 00:00: Medical 00 [place] Chronic Chronic Disease Active [facility] pain pain 11-08 [facility] - syndrome syndrome 00:00: Medica l 00 [place] Hypokalemi Hypokalemi Disease Active [facility] c periodic c periodic 11-08 Shari kes - paralysis paralysis 00:00: [facility] 00 Center Biliary Biliary Disease Active [facility] disease disease 08-28 [facility] - 00:00: Medical 00 [place] Abdominal Abdominal Disease Active [facility] pain, pain, 08-21 [facility] - other other 00:00: Medical specified specified 00 Cent er site site Primary Primary Disease Active [facility] biliary biliary 5-05 [facility] - cholangiti cholangiti 00:00: Me dical s s 00 Center Acute Acute Disease Active [facility] pancreatit pancreatit 5-05 Shari kes - is is 00:00: Medical 00 [place] Chronic Chronic Disease Active 2012-[address] [facility] pancreatit pancreatit 1-14 Shari kes - is is 00:00: Medical 00 Center Abdominal Abdominal Disease Active 2012-[address] pain pain 04-22 [facility] - 00:00: Medical 00 Center 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 08 [facility] - 00:00: Medical 00 [place] Elevated Elevated Disease Active 2012-04 [facility] liver liver 04-22 [facility] - enzymes enzymes 00:00: Medical 00 [place] Hypertensi Hypertensi Disease Active 2012-[address] on on 04-22 [facility] - 00:00: Medical 00 [place] Nausea & Nausea & Disease Active 2012-04 [facility] vomiting vomiting 04-22 [facility] - 00:00: Medical 00 [place] Fatty Fatty Disease Active 2012-[address] liver liver 04-22 [facility] - 00:00: Medical 00 [place] Alcohol Alcohol Disease Active 2012-[address] [facility] use use 04-22 [facility] - 00:00: Medical 00 [place] Immunity Immunity Disease Active 2012-04 [facility] status status 04-22 [facility] - testing testing 00:00: Medical 00 [place] Allergies, Adverse Reactions, Alerts Allergy Allergy Status Severity Reaction(s) Onset Inactive Treating Comm ents Source Name Type Date Date Clinician Codeine Drug Active Rash 2012-[address] [facility] Allergy 0 [facility] - 00:00: Medical 00 [place] Family History Family Member Diagnosis Comments Start Date Stop Date Source Natural brother Cancer [facility] Social History Social Habit Start Date Stop Date Quantity Comments Source Sex Assigned At [facility] Tobacco use and 2020-09-06 2020-09-06 Never used [facility] - exposure 00:00:00 00:00:00 [facility] Alcohol intake 2020-09-06 2020-09-[facility] non-drinker of Medical Ce nter alcohol (finding) Smoking Status Start Date Stop Date Source Never smoker [facility] Medications Ordered Filled Start Stop Current Ordering Indication Dosage Frequency Signature Comments Components Source Medication Medication Date Date Medication? Clinician (SIG) Name Name losartan Yes TAKE [address] [facility] (COZAAR) 5-28 TABLET BY [facility] - 100 MG 13:24: MOUTH Medical tablet 24 EVERY DAY Center diazePAM Yes 2mg Take [address] [facility] (VALIUM) 2 5-28 by mouth 2 Sammy es - MG tablet 13:24: (two) Medical 24 times [place] daily as needed for Anxiety. pancrelipas 2021- Yes [id number]{ Take [address] [facility] e, - 05-28 lipase} capsules [facility] - Lip-Prot-Am 00:00: 23:59 (72,000 Me dical yl, (CREON) 00 :00 units of Cent er 24,000-76,0 lipase 00 -120,000 total) by unit CpDR mouth 3 capsule (three) times daily with meals. ursodioL 2021- Yes 500mg Q.5D Take 1 [facility] (ACTIGALL) 5-28 05-28 tablet [facility] - 500 MG 00:00: 23:59 (500 mg Medical tablet 00 :00 total) by Center mouth 2 (two) times daily. gabapentin 2020- Yes 100mg Q.[id number] Take [address] (NEURONTIN) 09-09 [id number] capsule [facility] - 100 MG 00:00: 23:59 3D (100 mg Medical capsule 00 :00 total) by Center mouth 3 (three) times daily for 30 days. promethazin 2020- Yes 12.5mg Take 0.[address] e 09-09 tablets [facility] - (PHENERGAN) 00:00: 23:59 (12.5 mg M edical 25 MG 00 :00 total) by Center tablet mouth every 8 (eight) hours as needed for Nausea for up to 30 days. HYDROcodone 2020- No 1{tbl} Take [address] -acetaminop 09-09- tablet by Shari contreras (NORCO 00:00: 23:59 mouth Medic al 10-325) 00 :00 every 8 Center 10-325 mg (eight) per tablet hours as needed for up to 10 days. Max Daily Amount: 3 tablets QUEtiapine 2020- No 150mg QD Take [address] (SEROQUEL) 5-16 05-16 mg by [facility] - 100 MG 09:02: 00:00 mouth Medical tablet 50 :00 nightly. Center promethazin 2020- No 25mg Take [address] e 5-16 -16 by mouth [facility] - (PHENERGAN) 09:02: 00:00 every 6 Me dical 25 MG 50 :00 (six) Center tablet hours as needed for Nausea. ALPRAZolam 2020- No 1mg Take [address] (XANAX) 1 -16 05-16 by mouth [facility] - MG tablet [...] Take [address] m oxalate 08-2816 with by mouth [facility] - (LEXAPRO) 09:02: 00:00 depression daily. Medical 10 MG 50 :00 Center tablet HYDROcodone 2020-2020- No pain 1{tbl} Q.5D Take [address] -acetaminop 08-2816 tablet by Shari guzman - diane (CardKillAR 09:02: 00:00 mouth 2 Med ical 5-325) 50 :00 (two) Center 5-325 mg times per tablet daily. diazePAM 2020- No 5mg Take [address] (VALIUM) 5 08-28-16 by mouth 2 Shari kes - MG tablet 09:02: 00:00 (two) Medica l 50 :00 times Center daily as needed. gabapentin 2020- No Resume [facility] (NEURONTIN) 08-28- taking as Shari kes - 100 MG 00:00: 00:00 you were Medica l capsule 00 :00 prior to Center admission. HYDROcodone 2020- No Resume [facility] -acetaminop 08-28-28 taking per Obdulia contreras (CardKillAR 00:00: 00:00 prescripti Medical 7.5-325) 00 :00 on Center 7.5-325 mg instructio per tablet ns for pain. You have this at home. omeprazole 2020- No 40mg QD Take [address] (PriLOSEC) 08-15-16 by mouth Luke s - 40 MG 00:00: 00:00 daily. Medical capsule 00 :00 Center tiZANidine 2020- Yes 2mg Q.5D Take [address] (ZANAFLEX) 4-19 by mouth 2 Sammy es - 2 MG tablet 00:00: (two) Medic al 00 times Center daily. traZODone Yes 100mg QD Take [address] (DESYREL) 4-19 mg by [facility]ukes - 100 MG 00:00: mouth Medical tablet 00 nightly. Center ARIPiprazol 2020- No 10mg Q.5D Take [address] e (ABILIFY) 3-18 05-16 by mouth 2 L ukes - 10 MG 00:00: 00:00 (two) Medical tablet 00 :00 times Center daily. Chlorhexidi Chlorhexidi 2019- No Na Slade [address] ne ne 6-23 06-30 swish and [facility]ukes - Gluconate Gluconate 00:00: 00:00 spit Me moria 00 :00 l Outpati ent Clinics Losartan Losartan Yes [...] Name Name Influenza TIV (IM) 2013-02-27 Completed [facility] - 00:00:00 [facility] Vital Signs Vital Name Observation Time Observation Value Comments Source Oxygen saturation in 2020-09-09 07:30:00 99 /min [facility] Arterial blood by Medical Ce nter Pulse oximetry Systolic blood 2020-09-09 07:30:00 136 mm[Hg] [facility] Diastolic blood 2020-09-09 07:30:00 83 mm[Hg] [facility] Heart rate 2020-09-09 07:30:00 66 /min [facility] Body temperature 2020-09-09 07:30:00 36 [place] [facility] Respiratory rate 2020-09-09 07:30:00 18 /min [facility] Body height 2020-09-06 13:10:00 152.4 cm per patient [facility] Body weight 2020-09-06 13:10:[address] [facility] BMI 2020-09-06 13:10:00 36.72 kg/m2 [facility] Procedures Procedure Date / Time Performed Performing Clinician [facility] e PROTHROMBIN TIME/INR 2020-09-08 03:57:00 Constance Velasco [facility] MR ABDOMEN WITH & 2020-09-07 22:14:[address] [facility] WITHOUT IV CONTRAST [facility] er PROTHROMBIN TIME/INR 2020-09-07 04:01:00 Constance Velasco [facility] BASIC METABOLIC PANEL 2020-09-07 04:01:00 [facility] () [facility] HEPATIC FUNCTION PANEL 2020-09-07 04:01:00 Truong Nguyễn [facility] LIPASE 2020-09-07 04:01:00 [facility] Truong [facility] REPORT OF PROCEDURE - 2020-09-06 08:03:20 [facility] [place] ERCP 2020-09-06 08:00:00 Negra Truong [facility] ERCP,STENT REMOVAL 2020-09-06 07:37:00 [facility]ED[facility] W/ C-ARM 2020-09-06 07:37:00 [facility] ERCP,BALLOON SWEEPING 2020-09-06 07:37:00 [facility] PROTHROMBIN TIME/INR 2020-09-06 04:10:00 Umberto Velascous [facility] SARS-COV2/RT-PCR ([facility] 2020-09-05 14:02:00 Destini Stiles [facility] BASIC METABOLIC PANEL 2020-09-05 14:00:00 Negra [facility] () [facility] LIPASE 2020-09-05 14:00:00 Negra [facility] MAGNESIUM 2020-09-05 14:00[facility] W[facility]T COUNT & AUTO 2020-09-05 14:00:00 [facility] HEPATIC FUNCTION PANEL 2020-09-05 14:00:00 [facility] REPORT OF PROCEDURE - 2020-08-27 08:35:[address] [facility] [place] ERCP 2020-08-27 08:35:00 [facility],BALLOON SWEEPING 2020-08-27 08:00:00 [facility] PROCEDURE W/ C-ARM 2020-08-27 08:00:00 [facility] ERCP,BILIARY STENT 2020-08-27 08:00:00 Linsey [facility] BASIC METABOLIC PANEL 2020-08-27 06:05:00 GiveonReagan [facility] - (7) [facility] MAGNESIUM 2020-08-27 06:05:00 Giveon Reagan [facility] PHOSPHORUS 2020-08-27 06:05:00 Giveon [facility] HEPATIC FUNCTION PANEL 2020-08-27 06:05:00 Giveon [facility] CBC W/PLT COUNT & AUTO 2020-08-27 05:09:[address] [facility] DIFFERENTIAL [facility] BASIC METABOLIC PANEL 2020-08-26 05:14:00 NguyễnTruong [facility] (7) [facility] CBC W/PLT COUNT & AUTO 2020-08-26 05:14:00 Nguyễn Pending sale to [facility] DIFFERENTIAL [facility] MAGNESIUM 2020-08-26 05:14:00 Nguyễn [facility] HEPATIC FUNCTION PANEL 2020-08-26 05:14:00 [facility] SARS-COV2/RT-PCR ([facility] 2020-08-26 04:55:[address] [facility] - REF LABS) [facility] REPORT OF PROCEDURE - 2020-08-26 00:00:00 Provider, Bal[facility] - ENDOSCOPY SCAN Scanning [facility] Plan of Care Planned Activity Planned Date Details Comments Source Future Scheduled 2023-09-[address] [facility] - Test 00:00:00 malignant neoplasm of Medica l Center colon (procedure) [code = 180579347] Future Scheduled 2021-11-[address] [facility] - Test 00:00:00 (procedure) [code = [facility] 21718044] Future Scheduled 2020-12-[address] [facility] - Test 00:00:00 (Season Ended) [code Medical Center = INFLUENZA VACCINE (Season Ended)] Future Scheduled 2020-04-[address] [facility] - Test 00:00:00 (12+) [code = Medical Center DEPRESSION SCREENING (12+)] Future Scheduled 2016-04-16 [...] es - Test 00:00:00 [facility] cervix [facility]procedure[facility] [code = 761452794] Future Scheduled 1981 DTAP/TDAP/TD VACCINES [facility] - Test 00:00:00 (1 - Tdap) [code = Medical C enter DTAP/TDAP/TD VACCINES (1 - Tdap)] Future Scheduled [address] [facility] - Test 00:00:00 [facility] breast (procedure) [code = 476391547] Encounters Start End Encounter Admission Attending Care Care Encounter Source Date/Time Date/Time Type Type Clinicians Facility Department ID 2020-10-04 2020-10-04 Emergency [facility] [id number] 17:45:00 20:23:00 Rosanna Guidry [id number] [place] [id number] [place] [id number] [id number] 2020-09-30 2020-09-30 [facility] [id number] 2020-09-29 2020-09-29 [facility] [id number] [facility] 2020-09-19 2020-09-19 [facility] [id number] [facility] 2020-09-16 2020-09-16 [facility] [id number] [facility] 2020-09-02 2020-09-02 [facility] [id number] [facility] 00:[facility]00 [facility] Outpat[facility] ent Clinics 2020-08-05 2020-08-05 Emergency [facility] [id number] 08:16:00 09:12:00 Maru White Chao [id number] [place] [id number] [place] [id number] 2020-07-18 2020-07-18 [facility] [id number] 06:28:00 08:29:00 Encounter Moise Maxine Chao [id number] [place] [id number] Surgical [id number] [place] 07 2020-07-18 2020-07-18 [facility] [id number] 07:30:00 08:00:00 Chao [id number] [place] [id number] Surgical [id number] [place] 020 2020-07-07 2020-07-07 Emergency Jaki Polanco [facility] [id number] 18:47:00 22:05:00 Sydnie Guidry [id number] [place] 4.2.7.2.686 [place] [id number] [id number] 2020-07-07 2020-07-07 Orders Doctor JAQUELIN [id number] 00:00:00 00:00:00 Only Unassigned, KATHIE [id number] [place] [facility] 4.2.7.2.686 [id number] [id number] 2020-07-07 2020-07-07 Outpatient [facility] [id number] [facility] 00:00:00 00:00:00 [facility] Out[facility] ent Clinics 2020-07-04 2020-07-04 [facility] [id number] 06:30:00 08:44:00 Encounter Moise Goodman Chao [id number] [place] [id number] Surgical [id number] [place] 07 2020-07-042020-07-04 Orders Doctor HAMMER [id number] 00:00:00 00:00:00 Only Unassigned, KATHIE [id number] [place] [address].2.7.2.686 [id number] 009 2020-07-01 2020-07-01 Laboratory Only, [facility] [id number] 09:02:10 09:17:10 Only Test Chao [id number] [place] 4.2.7.2.686 [place] [id number] 2020-07-01 2020-07-01 Orders Doctor HAMMER [id number] 00:00:00 00:00:00 Only Unassigned, KATHIE [id number]686 [id number] 009 2020-06-30 2020-06-30 [facility] [id number] [facility] 00:00:00 [facility] ent Clinics 2020-06-22 2020-06-22 [facility] [id number] [facility] 00:00:00 [facility] ent Clinics 2020-06-20 2020-06-20 [facility] [id number] 06:29:00 08:58:00 Encounter Moise Guidry [id number] [place] 4.2.7.2.686 Surgical [id number] [place] 071 2020-06-20 2020-06-20 Anesthesia Abe Arana [facility] [id number] 08:03:00 08:12:00 Event Dominguez Seo [id number] [place] 4.2.7.2.686 Surgical [id number] [place] 020 2020-06-20 2020-06-20 Orders Doctor HAMMER [id number] 00:00:00 00:00:00 Only UnassignedKATHIE 350.1.13.10 [place] [address].2.7.2.686 [id number] 009 2020-06-17 2020-06-17 Silver Steward Elizabeth, [facility] 1.2.840.114 [id number] 15:27:53 15:42:53 Visit Lab Main Chao 350.1.13.10 [place] 4.2.7.2.686 [facility] [id number] [facility] 2020-06-17 2020-06-17 Laboratory Only, [facility] 1.2.840.114 [id number] 15:26:19 15:41:19 Only Test Chao 350.1.13.10 [place] 4.2.7.2.686 [place] [id number] 353 2020-06-17 2020-06-17 Orders Doctor HAMMER 1.2.840.114 [id number] 00:00:00 00:00:00 Only Unassigned, KATHIE 350.1.13.10 [place] [address]686 [id number] 009 2020-05-06 2020-05-06 Emergency [facility] 1.2.840.114 [id number] 15:21:00 18:38:00 Grisel Richardston 350.1.13.10 [place] 4.2.7.2.686 [place] [id number] 084 2020-05-04 2020-05-04 Laboratory Lab, [facility] 1.2.840.114 [id number] 08:54:13 09:14:13 Only Fam Elizabeth [facility] 350.1.13.10 [place] 4.2.7.2.686 [facility] [id number] [place] [address] [address] 2020-04-14 2020-04-14 Letter Jeannie Slade 1.2.840.114 [id number] 00:00:00 00:00:00 (Out) KATHIE [address].13.[address] [id number] 043 2020-03-25 2020-03-26 Emergency [facility], [facility] [id number] 21:13:00 02:01:00 Gabriele Guidry 350.1.13.10 [place] 4.2.7.2.686 [place] [id number] 084 2020-03-18 2020-03-18 Orders Doctor HAMMER 1.2.840.114 [id number] 00:00:00 00:00:00 Only UnassignedKATHIE 350.1.13.10 [place] [facility] 4.2.7.2.686 [id number] 009 2020-03-08 2020-03-08 Out[facility] [id number] [facility] 2020-03-07 2020-03-07 Out[facility] [id number] [facility] 2020-01-31 2020-02-08 [facility] 1.2.840.1 [id number] 10:39:00 16:12:00 [facility] [id number] Pasha Hinojosa 4.2.7.2.686 [facility] [id number] [facility] 110 ([facility]) 2020-01-11 2020-01-11 [facility] [id number] [facility] 2020-01-06 2020-01-06 [facility] [id number] [facility] 2019-12-18 2019-12-18 [facility] [id number] 15:26:00 19:16:00 Meka Guidry [id number] [place] 4.2.7.2.686 [place] [id number] 2019-10-06 2019-10-06 [facility] [id number] 10:40:00 10:40:00 t Prelert s - [place] [facility] Medicine Medicine Outpati ent Clinics 2019-09-17 2019-09-17 [facility] [id number] 10:24:00 10:24:00 t Bilbus [place] [facility] 2019-08-21 2019-08-21 Emergency [facility], [facility] [id number] 19:42:19 23:51:00 Gabriele Guidry 350.1.13.10 [place] 4.2.7.2.686 [place] [address] [id number] 084 2019-07-14 2019-07-14 [facility] [id number] 15:00:00 15:00:00 [employer] [facility] ent [facility] 2019-06-25 2019-06-25 Emergency Ron, [facility] 1.2.840.114 [id number] 16:52:11 20:04:00 Grisel Chao 350.1.13.10 [place] 4.2.7.2.686 [place] [address] [id number] 084 2019-06-19 2019-06-19 Emergency [facility] [id number] 13:58:11 19:09:00 Skyler Guidry 350.1.13.10 [place] 4.2.7.2.686 [place] [address] [id number] 084 2019-06-19 2019-06-19 Orders Doctor HAMMER 1.2.840.114 [id number] 00:00:00 00:00:00 Only Unassigned, KATHIE 350.1.13.10 [place] [address].2.7.2.686 [id number] [id number] 2019-05-19 2019-05-19 Emergency [facility] [id number] 18:29:04 21:26:00 Gary Guidry 350.1.13.10 [place] 4.2.7.2.686 [place] [address] [id number] 084 2019-03-02 2019-03-02 Out[facility] [id number] 10:40:00 10:40:00 Bilbus [facility] ent [facility] 2019-02-04 2019-02-04 [facility] [id number] 10:55:00 10:55:00 [place] [employer] [facility] 2018-12-24 2018-12-24 Telephone VEDA Vasquez 1.2.840.114 [id number] 00:00:00 00:00:00 [place] [id number] [place] [address].2.7.2.686 [facility] [id number] es 198 [place] 2018-10-07 2018-10-07 [facility] [id number] 11:00:00 11:00:00 t Prelert s - [place] [facility] 2018-07-28 2018-07-28 [facility] [id number] 09:57:00 09:57:00 t Prelert s [employer] [facility] ent [facility] 2018-07-25 2018-07-25 [facility] [id number] 14:40:00 14:40:00 [place] [employer] [facility] Results Test Test Test Comments Results Result Source Description Time Comments MR, ABDOMEN, 2020-08- Liver Protocol with WITH 27 ElastographyUnlisted 13:41:00 Reason for Exam - Click Yes and Enter Reason [facility] Below->YesUnlisted [facility] - MEDICAL Reason for Exam->History CENTERName: of liver fibrosis ASHALECLUIS Richey : 1960 Sex: F FINAL REPORT TECHNIQUE: MRI of the abdomen WITHOUT and WITH intravenous contrast and MR elastography INDICATION: Liver disease, chronic portal hypertension assessment. COMPARISON: 10/14/2014. FINDINGS: Exam limited secondary to motion artifact. LOWER THORAX: Unremarkable. LIVER: Liver demonstrates mildly heterogeneous T2 signal. Liver demonstrates smooth contour. There are multiple foci of arterial phase enhancement within the left hepatic lobe. Some of the peripheral lesions have mild associated capsular retraction. There is no corresponding washout or persistent enhancement on the delayed images. For instance at the junction of segments two and four, there is a 2 x 2.7 cm focus. (See arterial phase image 94)BILIARY: Prior cholecystectomy.. No biliary ductal dilation. There is mild pneumobilia..SPLE EN: Spleen is enlarged measuring 14 cm in length..PANCREAS: Pancreas demonstrates normal T1 signal intensity enhancement. There is mild pancreatic ductal dilation measuring up to 0.4 cm in the region of the pancreatic head. There is a unilocular cystic focus measuring 0.6 cm and uncinate. There is a second cystic focus in the pancreatic neck measuring 0.5 cm. No pancreatic mass.. ADRENALS: No adrenal nodules.KIDNEYS/U RETERS: No hydronephrosis or solid mass lesions.0.9 cm cyst in the upper pole of the right kidney. There is mild multifocal cortical scarring of the right kidney. PERITONEUM/RETROP ERITONEUM: No free fluid.LYMPH NODES: Few mildly enlarged periportal lymph nodes, likely.VESSELS: Portal vein, splenic vein and superior mesenteric vein are patent. Main portal vein measures 1.3 cm in diameter.. GI TRACT: No distention or wall thickening. BONES AND SOFT TISSUES: Mild degenerative changes in the spine.. 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 Multiple indeterminate arterial enhancing foci in left hepatic lobe. (LI-RADS 3) The mean liver stiffness value estimated from MR elastography images was: 3.97 kPa at 60 Hz. MR elastography estimates of hepatic fibrosis (at 60 Hz) correlates with hepatic fibrosis stage: Stage 2 to 3 Fibrosis: 3.5 - 4 kPa.* These results should be interpreted with clinical and laboratory findings for other possible causes of increased liver stiffness. The calculated liver fat fraction is 2.9%. PDFF 0 - 5%, Normal (Histological grade 0) Status post cholecystectomy. There is pneumobilia related to prior biliary intervention. No biliary ductal dilation. Changes of chronic pancreatitis with mild biliary duct dilation. There are two small cystic foci within the pancreatic uncinate and neck which may represent small pseudocysts versus sidebranch IPMN. Follow-up MRI/MRCP in two years is suggested. References:*Stiff ness threshold correlation to fibrosis based on meta-analysis by Chris, MRI Clin N Am 2014Hepatic Fat Fraction Thresholds based on Abdom Radiol 2020;45(3):661-67 1. Signed: Parul Saeed MDReport Verified Date/Time: 09/08/2020 13:41:30 Reading Location: [facility] [id number] Ortho Consult Reading Room abdomen 2020-08- Interface, [facility] & with 27 External Ris In - Sammy es - IV contrast 13:41:00 09/08/2020 1:43 Medical PM CD[facility] REPORT TECHNIQUE: MRI of the abdomen WITHOUT and WITH intravenous contrast and MR elastography INDICATION: Liver disease, chronic portal hypertension assessment. COMPARISON: 10/14/2014. FINDINGS: Exam limited secondary to motion artifact. LOWER THORAX: Unremarkable. LIVER: Liver demonstrates mildly heterogeneous T2 signal. Liver demonstrates smooth contour. There are multiple foci of arterial phase enhancement within the left hepatic lobe. Some of the peripheral lesions have mild associated capsular retraction. There is no corresponding washout or persistent enhancement on the delayed images. For instance at the junction of segments two and four, there is a 2 x 2.7 cm focus. (See arterial phase image 94)BILIARY: Prior cholecystectomy.. No biliary ductal dilation. There is mild pneumobilia..SPLE EN: Spleen is enlarged measuring 14 cm in length..PANCREAS: Pancreas demonstrates normal T1 signal intensity enhancement. There is mild pancreatic ductal dilation measuring up to 0.4 cm in the region of the pancreatic head. There is a unilocular cystic focus measuring 0.6 cm and uncinate. There is a second cystic focus in the pancreatic neck measuring 0.5 cm. No pancreatic mass.. ADRENALS: No adrenal nodules.KIDNEYS/U RETERS: No hydronephrosis or solid mass lesions.0.9 cm cyst in the upper pole of the right kidney. There is mild multifocal cortical scarring of the right kidney. PERITONEUM/RETROP ERITONEUM: No free fluid.LYMPH NODES: Few mildly enlarged periportal lymph nodes, likely.VESSELS: Portal vein, splenic vein and superior mesenteric vein are patent. Main portal vein measures 1.3 cm in diameter.. GI TRACT: No distention or wall thickening. BONES AND SOFT TISSUES: Mild degenerative changes in the spine.. 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 Multiple indeterminate arterial enhancing foci in left hepatic lobe. (LI-RADS 3) The mean liver stiffness value estimated from MR elastography images was: 3.97 kPa at 60 Hz. MR elastography estimates of hepatic fibrosis (at 60 Hz) correlates with hepatic fibrosis stage: Stage 2 to 3 Fibrosis: 3.5 - 4 kPa.* These results should be interpreted with clinical and laboratory findings for other possible causes of increased liver stiffness. The calculated liver fat fraction is 2.9%. PDFF 0 - 5%, Normal (Histological grade 0) Status post cholecystectomy. There is pneumobilia related to prior biliary intervention. No biliary ductal dilation. Changes of chronic pancreatitis with mild biliary duct dilation. There are two small cystic foci within the pancreatic uncinate and neck which may represent small pseudocysts versus sidebranch IPMN. Follow-up MRI/MRCP in two years is suggested. References:*Stiff ness threshold correlation to fibrosis based on meta-analysis by Chris, MRI Clin N Am 2014Hepatic Fat Fraction Thresholds based on Abdom Radiol 2020;45(3):661-67 1. Signed: Parul Saeed MDReport Verified Date/Time: 09/08/2020 13:41:30 Reading Location: [address] Consult Reading Room Prothrombin time/INR 2020-09-08 04:34:00 Test Item Value Reference Range Interpretation Comme nts Protime (test code = 11.7 See_Comment L [Autom ated message] The 2082-2) system which CTSpace nerated this result tra nsmitted reference range : 11.9 - 14.2 seconds. T he reference range was not used to interpr et this result as normal/abnormal . INR (test code = 0.88 See_Comment [Automated message] The 7631-6) system which CTSpace nerated this result tra nsmitted reference range : <=5.90. The reference r luca was not used to int erpret this result as normal/abnormal . KIM (test code = KIM) RECOMMENDED COUMADIN/WARFARIN INR THERAPY RANGESSTANDARD DOSE: 2.0 - 3.0 Includes: PROPHYLAXIS for venous thrombosis, systemic embolization; TREATMENT for venous thrombosis and/or pulmonary embolus.HIGH RISK: Target INR is 2.5-3.5 for patients with mechanical heart valves. Lab Interpretation Abnormal (test code = 04610-5) [facility] Center[facility]/[id number] 04:34:00 Test Item Value Reference Range Interpretation Comments PROTIME (BEAKER) 11.7 seconds 11.9-14.2 L (test code = 759) INR (BEAKER) (test 0.88 See_Comment [Automat ed message] code = 370) The system GroupSw[employer] generated this result transmitted ref erence range: <=5.90. The reference range was not used to int erpret this result as normal/abnormal . RECOMMENDED COUMADIN/WARFARIN INR THERAPY RANGESSTANDARD DOSE: 2.0 - 3.0 Includes: PROPHYLAXIS forvenous thrombosis, systemic embolization; TREATMENT for venous thrombosis and/or pulmonary embolus.HIGH RISK: Target INR is 2.5-3.5 for patients with mechanical heart valves.Basic Metabolic [id number] 04:51:00 Test Item Value Reference Range Interpretation Comments Sodium (test code = 138 meq/L 064-897 0155-2) Potassium (test code = 4.2 meq/L 3.5-5.1 2823-3) Chloride (test code = 106 meq/L 98-107 2075-0) CO2 (test code = 24 meq/L 22-29 8-9) BUN (test code = 8 mg/dL 7-21 3094-0) Creatinine (test code 0.63 mg/dL 0.57-1.25 = 2160-0) Glucose (test code = 110 mg/dL 70-105 H 2345-7) Calcium (test code = 8.9 mg/dL 8.4-10.2 38136-7) EGFR (test code = 97 mL/min/1.73 [place] [address]-6) NOT ACCURATE CREATININE CLEARANCE IN PREDICTING GLOMERULAR FILTRATION RATE . ESTIMATED GFR I S NOT APPLICABLE FOR DIALYSIS PATIENTS. KIM (test code = KIM) Breakdown Man ID - ALAINA W Lab Interpretation Abnormal (test code = 51202-3) [facility] CenterHepatic function [id number] 04:51:00 Test Item Value Reference Range Interpretation Comments Protein, Total (test 7.1 See_Comment [Autom ated code = 2885-2) message] The system which generated this result transmit gulshan reference range : 6.0 - 8.3 gm/dL . The reference range was not u sed to interpret th is result as normal/abnormal . Albumin (test code = 3.7 g/dL 3.5-5 05901-9) Total Bilirubin (test 1.0 mg/dL 0.2-1.2 code = 1975-2) Bilirubin, Direct 0.7 mg/dL 0.1-0.5 H (test code = 1967-7) Alkaline Phosphatase 677 U/L 40-150 H (test code = 6768-6) AST (test code = 137 U/L 5-34 H 1920-8) ALT (test code = 132 U/L 6-55 H 1742-6) KIM (test code = KIM) Breakdown Man ID - ALAINA W Lab Interpretation Abnormal (test code = 07595-6) [facility] CenterLipase2021-05-26 04:51:00 Test Item Value Reference Range Interpretation Comments Lipase (test code = 115 U/L 8-78 H 3040-3) KIM (test code = KIM) Breakdown Man ID - ALAINA W Lab Interpretation (test Abnormal code = 25701-6) [facility] CenterBASIC METABOLIC [id number] 04:51:00 Test Item Value Reference Range Interpretation Comments SODIUM (BEAKER) 138 meq/L 136-145 (test code = 381) POTASSIUM (BEAKER) 4.2 meq/L 3.5-5.1 (test code = 379) CHLORIDE (BEAKER) 106 meq/L 98-107 (test code = 382) CO2 (BEAKER) (test 24 meq/L 22-29 code = 355) BLOOD UREA NITROGEN 8 mg/dL 7-21 (BEAKER) (test code = 354) CREATININE (BEAKER) 0.63 mg/dL 0.57-1.25 (test code = 358) GLUCOSE RANDOM 110 mg/dL 70-105 H (BEAKER) (test code = 652) CALCIUM (BEAKER) 8.9 mg/dL 8.4-10.2 (test code = 697) EGFR (BEAKER) (test 97 mL/min/1.73 ESTIMA GULSHAN GFR IS code = 1092) sq m NOT ACCURATE CREATININE CLEARANCE IN PREDICTING GLOMERULAR FILTRATION RATE . ESTIMATED GFR I S NOT APPLICABLE FOR DIALYSIS PATIEN TS. Breakdown Man ID - ALAINA WHEPATIC FUNCTION [id number] 04:51:00 Test Item Value Reference Range Interpretation Comments TOTAL PROTEIN (BEAKER) (test code = 7.1 gm/dL 6.0-8.3 770) ALBUMIN (BEAKER) (test code = 1145) 3.7 g/dL 3.5-5.0 BILIRUBIN TOTAL (BEAKER) (test code 1.0 mg/dL 0.2-1.2 = 377) BILIRUBIN DIRECT (BEAKER) (test 0.7 mg/dL 0.1-0.5 H code = 706) ALKALINE PHOSPHATASE (BEAKER) (test 677 U/L 40-150 H code = 346) AST (SGOT) (BEAKER) (test code = 137 U/L 5-34 H 353) ALT (SGPT) (BEAKER) (test code = 132 U/L 6-55 H 347) Breakdown Man ID - ALAINA [id number] 04:51:00 Test Item Value Reference Range Interpretation Comments LIPASE (BEAKER) (test code = 749) 115 U/L 8-78 H Breakdown Man ID Ryan FOLEY WPROTHROMBIN TIME/[id number] 04:25:00 Test Item Value Reference Range Interpretation Comments PROTIME (BEAKER) 12.3 seconds 11.9-14.2 (test code = 759) INR (BEAKER) (test 0.94 See_Comment [Automat ed message] code = 370) The system [employer] generated this result transmitted ref erence range: <=5.90. The reference range was not used to int erpret this result as normal/abnormal . RECOMMENDED COUMADIN/WARFARIN INR THERAPY RANGESSTANDARD DOSE: 2.0 - 3.0 Includes: PROPHYLAXIS forvenous thrombosis, systemic embolization; TREATMENT for venous thrombosis and/or pulmonary embolus.HIGH RISK: Target INR is 2.5-3.5 for patients with mechanical heart valves.FL, [id number] 08:00:00INTRA OP IMAGIN Reason for exam:->ercp [facility] 1960 Sex: FFluoroscopic unit utilized for a procedure performed in the OR. No interpretation was requested. Refer to the operative report for findings. Refer to PACS for patient radiation dose information.[place] [id number] 08:00:00Interface, External Ris In - 09/06/2020 9:17 AM CDTFluoroscopic unit utilized for a procedure performed in the OR. No interpretation was requested. Refer to the operative report for findings. Referto PACS for patient radiation dose information.[facility] (Asymptomatic ONLY)2020-09-06 06:35:00 Test Item Value Reference Range Interpretation Comments SARS-COV2/RT-PCR Negative Not Detected, (test code = Negative, See 63968-4) external report for linked test SARS-COV-2 [facility] PERFORMING LAB (test code = 42148-8) KIM (test code = Negative result for [...] limit of detection for this assay is 100 copies/mL. This SARS CoV-2 test is a [...] revoked under Section 564(g) of the Act. Testing was performed using the Think-Now SARS-CoV-2 assay. Fact Sheet for Healthcare Providers:https://www.Votigo/bertha/RT_SA DO-RfN-7_AUI_Gzwf_Ehctg_ 51-878117.pdf Fact Sheet for Healthcare Patients:https://www.Ubiquity Hosting/bertha/RT_SAR K-WpE-0_Azacbkm_Rwem_Exb et_EN_51-868989N2.pdf Performing Laboratory:[facility] [place], [place] [address]davin kenny.[place], [place] [address] [place], [place] [address]ARS-COV2/RT-PCR ([facility])2020-09-06 06:35:00 Test Item Value Reference Range Interpretation Comments SARS-COV2/RT-PCR (test Negative Not Detected, Negative, code = 5371370) See external report for linked test SARS-COV-[address] [facility] DEVAN (test code = 9941618) Negative result for this test determines that [...] limit of detection for this assay is 100 copies/mL.This SARS CoV-2 test is a real-time [...] is revoked under Section 564(g) of the Act.Testing was performed using the Simms SARS-CoV-2 assay.Fact Sheet for Healthcare Providers:https://www.ShopSquad/Ownza.simms/bertha/ KP_RDPV-GzE-2_GQN_Cehn_Uyswj_17-015014.pdfFact Sheet for Healthcare Patients:https://www.ShopSquad/Ownza.[employer] narayan/bertha/RF_XRNU-MtE-6_Ffvpbpg_Unhi_Xxxgs_CU_62-332721M6.pdfPerforming Laboratory:[facility] [place] [address] PROTHROMBIN TIME/[id number] 04:41:00 Test Item Value Reference Range Interpretation Comments PROTIME (BEAKER) 12.4 seconds 11.9-14.2 (test code = 759) INR (BEAKER) (test 0.95 See_Comment [Automat ed message] code = 370) The system [employer]Sw[employer] generated this result transmitted ref erence range: <=5.90. The reference range was not used to int erpret this result as normal/abnormal . RECOMMENDED COUMADIN/WARFARIN INR THERAPY RANGESSTANDARD DOSE: 2.0 - 3.0 Includes: PROPHYLAXIS forvenous thrombosis, systemic embolization; TREATMENT for venous thrombosis and/or pulmonary embolus.HIGH RISK: Target INR is 2.5-3.5 for patients with mechanical heart valves.[id number] 14:40:00 Test Item Value Reference Range Interpretation Comments Magnesium (test code = 1.9 mg/dL 1.6-2.6 Speci men 71736-0) slightly hemolyzed KIM (test code = KIM) Breakdown Man ID Ryan NEGRON F Lab Interpretation Normal (test code = 80414-6) [facility] 14:40:00 Test Item Value Reference Range Interpretation Comments MAGNESIUM (BEAKER) 1.9 mg/dL 1.6-2.6 Specimen slightly (test code = 627) hemolyzed Breakdown Man ID Ryan NEGRON FBASIC METABOLIC [id number] 14:40:00 Test Item Value Reference Range Interpretation Comments SODIUM (BEAKER) 135 meq/L 136-145 L (test code = 381) POTASSIUM (BEAKER) 4.1 meq/L 3.5-5.1 Specimen slightly (test code = 379) hemolyzed CHLORIDE (BEAKER) 102 meq/L 98-107 (test code = 382) CO2 (BEAKER) (test 24 meq/L 22-29 code = 355) BLOOD UREA NITROGEN 13 mg/dL 7-21 (BEAKER) (test code = 354) CREATININE (BEAKER) 0.63 mg/dL 0.57-1.25 Specimen slightly (test code = 358) hemolyzed GLUCOSE RANDOM 88 mg/dL 70-105 (BEAKER) (test code = 652) CALCIUM (BEAKER) 9.2 mg/dL 8.4-10.2 (test code = 697) EGFR (BEAKER) (test 97 mL/min/1.73 ESTIMA GULSHAN GFR IS code = 1092) sq m NOT ACCURATE CREATININE CLEARANCE IN PREDICTING GLOMERULAR FILTRATION RATE . ESTIMATED GFR I S NOT APPLICABLE FOR DIALYSIS PATIEN TS. Breakdown Man ID Ryan NEGRON FHEPATIC FUNCTION [id number] 14:40:00 Test Item Value Reference Range Interpretation Comments TOTAL PROTEIN (BEAKER) 7.6 gm/dL 6.0-8.3 Speci men slightly (test code = 770) hemolyzed ALBUMIN (BEAKER) (test 3.9 g/dL 3.5-5.0 Speci men slightly code = 1145) hemolyzed BILIRUBIN TOTAL 0.7 mg/dL 0.2-1.2 Specimen sli ghtly (BEAKER) (test code = hemoly zed 377) BILIRUBIN DIRECT 0.5 mg/dL 0.1-0.5 Specimen sl ightly (BEAKER) (test code = hemoly zed 706) ALKALINE PHOSPHATASE 700 U/L 40-150 H (BEAKER) (test code = 346) AST (SGOT) (BEAKER) 89 U/L 5-34 H Specimen slightly (test code = 353) hemolyzed ALT (SGPT) (BEAKER) 106 U/L 6-55 H Specimen slightly (test code = 347) hemolyzed Breakdown Man ID - MIGDALIA [id number] 14:40:00 Test Item Value Reference Range Interpretation Comments LIPASE (BEAKER) (test code = 749) 446 U/L 8-78 H Breakdown Man ID - MIGDALIA FCBC with platelet count + automated [id number] 14:14:00 Test Item Value Reference Range Interpretation Comments WBC (test code = 6690-2) 5.7 See_Comment [A utomated message] The system [employer] generated this result transmitted ref erence range: 3.5 - 10 .5 K/L. The refe rence range was not u sed to interpret this result as normal/abnor mal. RBC (test code = 789-8) 3.50 See_Comment L [Au tomated message] The system [employer] generated this result transmitted ref erence range: 3.93 - 5 .22 M/L. The refe rence range was not u sed to interpret this result as normal/abnor mal. MCHC (test code = 786-4) 32.2 See_Comment L [A utomated message] The system [employer] generated this result transmitted ref erence range: 32.2 - 3 5.5 GM/DL. The refe rence range was not u sed to interpret this result as normal/abnor mal. Hematocrit (test code = 32.3 % 34.1-44.9 L 4544-3) MCV (test code = 787-2) 92.3 fL 79.4-94.8 MCH (test code = 785-6) 29.7 pg 25.6-32.2 RDW (test code = 788-0) 12.8 % 11.7-14.4 Platelets (test code = 234 See_Comment [Aut omated message] 777-3) The system [employer] generated this result transmitted ref erence range: 150 - 45 0 K/CU MM. The referen ce range was not u sed to interpret this result as normal/abnor mal. MPV (test code = 9.3 fL 9.4-12.3 L 02583-7) nRBC (test code = 413) 0 See_Comment [Aut omated message] The system [employer] generated this result transmitted ref erence range: 0 - 0 /1 00 WBC. The refere nce range was not u sed to interpret this result as normal/abnor mal. % Neutros (test code = 72 % 429) % Lymphs (test code = 17 % 430) % Monos (test code = 8 % 431) % Eos (test code = 432) 1 % % Baso (test code = 437) 0 % # Neutros (test code = 4.10 See_Comment [Aut omated message] 670) The system [employer] generated this result transmitted ref erence range: 1.56 - 6 .13 K/L. The refe rence range was not u sed to interpret this result as normal/abnor mal. # Lymphs (test code = 0.99 See_Comment L [Auto mated message] 414) The system [employer] generated this result transmitted ref erence range: 1.18 - 3 .74 K/L. The refe rence range was not u sed to interpret this result as normal/abnor mal. # Monos (test code = 0.47 See_Comment H [Autom ated message] 415) The system [employer] generated this result transmitted ref erence range: 0.24 - 0 .36 K/L. The refe rence range was not u sed to interpret this result as normal/abnor mal. # Eos (test code = 416) 0.08 See_Comment [Au tomated message] The system [employer] generated this result transmitted ref erence range: 0.04 - 0 .36 K/L. The refe rence range was not u sed to interpret this result as normal/abnor mal. # Baso (test code = 417) 0.02 See_Comment [A utomated message] The system [employer] generated this result transmitted ref erence range: 0.01 - 0 .08 K/L. The refe rence range was not u sed to interpret this result as normal/abnor mal. Immature 1 % 0-1 Granulocytes-Relative (test code = 2801) Lab Interpretation (test Abnormal code = 17818-4) [facility] W/PLT COUNT & AUTO [id number] 14:14:00 Test Item Value Reference Range Interpretation Comments WHITE BLOOD CELL COUNT (BEAKER) 5.7 K/ L 3.5-10.5 (test code = 775) RED BLOOD CELL COUNT (BEAKER) 3.50 M/ L 3.93-5.22 L (test code = 761) HEMOGLOBIN (BEAKER) (test code = 10.4 GM/DL 11.2-15.7 L 410) HEMATOCRIT (BEAKER) (test code = 32.3 % 34.1-44.9 L 411) MEAN CORPUSCULAR VOLUME (BEAKER) 92.3 fL 79.4-94.8 (test code = 753) MEAN CORPUSCULAR HEMOGLOBIN 29.7 pg 25.6-32.2 (BEAKER) (test code = 751) MEAN CORPUSCULAR HEMOGLOBIN CONC 32.2 GM/DL 32.2-35.5 (BEAKER) (test code = 752) RED CELL DISTRIBUTION WIDTH 12.8 % 11.7-14.4 (BEAKER) (test code = 412) PLATELET COUNT (BEAKER) (test 234 K/CU MM 150-450 code = 756) MEAN PLATELET VOLUME (BEAKER) 9.3 fL 9.4-12.3 L (test code = 754) NUCLEATED RED BLOOD CELLS 0 /100 WBC 0-0 (BEAKER) (test code = 413) NEUTROPHILS RELATIVE PERCENT 72 % (BEAKER) (test code = 429) LYMPHOCYTES RELATIVE PERCENT 17 % (BEAKER) (test code = 430) MONOCYTES RELATIVE PERCENT 8 % (BEAKER) (test code = 431) EOSINOPHILS RELATIVE PERCENT 1 % (BEAKER) (test code = 432) BASOPHILS RELATIVE PERCENT 0 % (BEAKER) (test code = 437) NEUTROPHILS ABSOLUTE COUNT 4.10 K/ L 1.56-6.13 (BEAKER) (test code = 670) LYMPHOCYTES ABSOLUTE COUNT 0.99 K/ L 1.18-3.74 L (BEAKER) (test code = 414) MONOCYTES ABSOLUTE COUNT (BEAKER) 0.47 K/ L 0.24-0.36 H (test code = 415) EOSINOPHILS ABSOLUTE COUNT 0.08 K/ L 0.04-0.36 (BEAKER) (test code = 416) BASOPHILS ABSOLUTE COUNT (BEAKER) 0.02 K/ L 0.01-0.08 (test code = 417) IMMATURE GRANULOCYTES-RELATIVE 1 % 0-1 PERCENT (BEAKER) (test code = 2801) [place], [id number] 08:35:00Reason for exam:->abnormal imaging [facility] 1960 Sex: FFluoroscopic unit utilized for a procedure performed in the OR. No interpretation was requested. Refer to the operative report for findings. Refer to PACS for patient radiation dose information.[id number] 06:42:00 Test Item Value Reference Range Interpretation Comments Phosphorus (test code = 3.4 mg/dL 2.3-4.7 2777-1) KIM (test code = KIM) Breakdown Man ID - EDASI Lab Interpretation (test Normal code = 07267-9) [facility] 06:42:00 Test Item Value Reference Range Interpretation Comments MAGNESIUM (BEAKER) (test code = 1.8 mg/dL 1.6-2.6 627) Breakdown Man ID - [id number] 06:42:00 Test Item Value Reference Range Interpretation Comments PHOSPHORUS (BEAKER) (test code = 3.4 mg/dL 2.3-4.7 604) Breakdown Man ID - EDASIHEPATIC FUNCTION [id number] 06:42:00 Test Item Value Reference Range Interpretation [...] code = 89 U/L 6-55 H 347) Breakdown Man ID - EDASIBASIC METABOLIC [id number] 06:42:00 Test Item Value Reference Range Interpretation [...] S NOT APPLICABLE FOR DIALYSIS PATIEN TS. Breakdown Man ID - EDASICBC W/PLT COUNT & AUTO [id number] 05:27:00 Test Item Value Reference Range Interpretation [...] 0-1 PERCENT (BEAKER) (test code = 2801) SARS-COV2/RT-PCR ([facility])2020-08-26 12:43:00 Test Item Value Reference Range Interpretation Comments SARS-COV2/RT-PCR (test Negative Not Detected, Negative, code = 4778615) See external report for linked test SARS-COV-[address] [facility] DEVAN (test code = 4316876) Negative result for this test determines that [...] 564(g) of the Act.Fact Sheet for Healthcare Providers:https://www.[employer].JumpTime/sites/default/files/product/documents/Fact_Shee c_IK_Vrxqghjnw_Lsdt_ZAED-LaU-4.pdfFact Sheet for Healthcare Patients:https://www.[employer].com/sites/default/files/product/ documents/Lyku_Xiagq_Rjxwgbge_Xaqp_IYIM-BwN-9.pdfPerforming Laboratory:[facility], [place] [address]OWZWJ METABOLIC PANEL 2020-08-26 06:19:00 Test Item Value [...] S NOT APPLICABLE FOR DIALYSIS PATIEN TS. Breakdown Man ID - PIAYA [id number] 06:19:00 Test Item Value Reference Range Interpretation Comments MAGNESIUM (BEAKER) (test code = 1.8 mg/dL 1.6-2.6 627) Breakdown Man ID - PIAYA LHEPATIC FUNCTION [id number] 06:19:00 Test Item Value Reference Range Interpretation [...] code = 82 U/L 6-55 H 347) Breakdown Man ID - DONNA LCBC W/PLT COUNT & AUTO [id number] 05:37:00 Test Item Value Reference Range Interpretation [...] 0-1 PERCENT (BEAKER) (test code = 2801) [id number]-[id number] 00:00:00Ordered by an unspecified provider.[facility] Center[facility], [id number] 15:57:00 Test Item Value Reference Range Interpretation Comments Culture, Urine (test NF code = URC) Culture, Urine (test 10 NSF code = URC1) * This is an EDIT ED result. * A prior r esult that was reported as final has been changed. [id number] 22:53:00 Test Item Value Reference Range Interpretation [...] = UACAST) CAST LPF Urine Source: Urine [id number] SURGICAL PATHOLOGY, LEVEL [id number] 14:31:00 [place] [address] Laboratory Printed: 07/09/[address] [place] [address] DAEMPathology Page: 1 Patient: ZEKE ROMERO Birthdate: 1960 Age/Sex: 56/F Spec#: [id number]: HERMES SALAZAR Specimen Date: 07/08/17 [...] neutrophils. Pathologist:Kelvin Conway Entered by:07/09/17 - 1429 MAY PROCEDURES: 11426,39319/4 Patient: ZEKE ROMERO Re07/03/17Loc: T4-A MR#: [id number] CONTINUED ON NEXT PAGE Dis: 07/09/17ta: DIS IN - [address] [address] Laboratory Printed: 07/09/[address] [place] [address] DAEMPathology Page: 2 Patient: ZEKE ROMERO [id number] (Continued) GROSS DESCRIPTION A. LIVER BIOPSY LEFT [...] 07/09/17 Patient: ZEKE ROMERO Re07/03/17Loc: T4-A MR#: [id number] END OF REPORT Dis: 07/09/17ta: DIS [id number] 05:13:00 Test Item Value Reference Range Interpretation [...] U/L 8-55 H = ALT) Reference Lab [id number] 04:14:00 Test Item Value Reference Range Interpretation Comments Reference Lab 10 U/mL 0-35 Alurent ECLIA Testing (test code methodolo gyPerformed at: HD = CA199) - [facility] Ales[address] oi0352 [facility] [place] [id number] Di aimee: Chico Suero MD, Phone : [phone] Reference Lab [id number] 16:14:00 Test Item Value Reference Range Interpretation Comments Reference Lab Testing 128.5 Units 0.0-20.0 H (test code = MARLON) Negative 0.0 - 20.0 Equivocal 20.1 - 24.9 Positive >24.9Mitochondr ial (M2) Antibodies are found in 90-96% ofpatients with primary biliary cirrhosis.Perfo rmed at: [facility] rp [address] [id number] Director: jP Rider MD, [facility] ne: [phone] Reference Lab [id number] 16:14:00 Test Item Value Reference Range Interpretation [...] testing of p ositive sera with both MN-3 and MPO-ANCA enzyme immunoassays. A s many as 5% serumsamples are positive only b y EIA. Ref. AM J Clin Kkjmng5441;111: 507-513. Reference Lab <1:20 titer Neg:<1:20 The atypical p ANCA pattern Testing (test has been obser chelita in code = ATANCA) asignificant percentage of patients with u lcerative colitis,primary sclerosing cholangitis and autoimmune hepatitis.Perfo rmed at: [facility] - [facility] [address] [id number] Di aimee: Chester ramírez MD, Phone: [phone] [id number] 05:12:00 Test Item Value Reference Range Interpretation [...] 8-55 H code = ALT) Reference Lab [id number] 22:07:00 Test Item Value Reference Range Interpretation Comments Reference Lab Testing 785 IU/L 39-117 H (test code = ISOALKT) Reference Lab Testing 25 % 14-68 (test code = ISOALKBT) Reference Lab Testing 74 % 18-85 (test code = ISOALKLT) Reference Lab Testing 1 % 0-18 Perfor med at: HD - (test code = ISOALKIT) [facility] [address] [place], [place] [id number] b Director: Chico Suero MD, Phone: [phone] at: BN - [facility] [address] [place], [place] [id number] Di aimee: Chester ramírez MD, Phone: [phone] [id number] 11:48:00 Test Item Value Reference Range Interpretation [...] code = ALT) 92 U/L 8-55 H [id number] 06:08:00 Test Item Value Reference Range Interpretation [...] 8.5 mg/dL 7.8-10.44 N code = CA) [id number] 06:06:00 Test Item Value Reference Range Interpretation [...] code = ALT) 129 U/L 8-55 H [id number] 05:57:00 Test Item Value Reference Range Interpretation [...] code = BASO#) 0.0 thou/uL 0.0-0.2 N Kwfqmadtuzw0676-22-33 05:55:00 Test Item Value Reference Range Interpretation [...] - 4. 0 CRITICAL: > 4.0 Anticoagulant? [id number] 05:36:00 Test Item Value Reference Range Interpretation [...] 8.9 mg/dL 7.8-10.44 N code = CA) [id number] 05:33:00 Test Item Value Reference Range Interpretation [...] code = ALT) 160 U/L 8-55 H [id number] 05:28:00 Test Item Value Reference Range Interpretation [...] 0.1 thou/uL 0.0-0.2 N Chemistry - Elizabeth Tdvqfju5868-10-33 13:02:00 Test Item Value Reference Range Interpretation [...] 15.0 IU/mL = POSITIV E Chemistry - Elizabteh NEW METHOD Values o btained Testing (test code with diff erent = ELIAANANEWMETH) assay meth ods CANNOT be usedINTERCHANGE ABLY .If in the cour se of monitoring a patient, the as say methodused for determining lev els is changed, a newbaseline/ser ial monitoring may need to be performed .SEE REFERENCE RANGE S FOR NEW METHODOLOGY.Met hod: Enzyme Linked Fluorescent Immunoassay (Elizabeth)Reference s: [employer] Elizabeth Package Inserts - Directions forU se, June,August 02, Lomography ic. [id number] 05:00:00 Test Item Value Reference Range Interpretation [...] code = ALT) 144 U/L 8-55 H Djghofnbj4901-06-21 04:50:00 Test Item Value Reference Range Interpretation [...] 8.4 mg/dL 7.8-10.44 N code = CA) Vjsvmlbuku5285-20-64 04:39:00 Test Item Value Reference Range Interpretation [...] code = BASO#) 0.0 thou/uL 0.0-0.2 N [id number] 17:07:00 Test Item Value Reference Range Interpretation Comments Chemistry (test code = IGG) 1032.00 mg/dL 552-1631 N Yzgvpyxyc7048-38-88 17:07:00 Test Item Value Reference Range Interpretation Comments Chemistry (test code = IGM) 215.00 mg/dL 33-293 N Vnvscglzrc1008-92-43 00:50:00 Test Item Value Reference Range Interpretation [...] UABLD) Urine Source: Urine Clean CatchChemistry - Anghvael4709-10-75 00:25:00 Test Item Value Reference Range Interpretation Comments Chemistry - Specials (test Non-Reactive NonReactive code = THEPAIGM) Chemistry - Specials (test Non-Reactive S/CO NonReactive code = THBSAG) Chemistry - Specials (test Non-Reactive NonReactive code = INTHBCM) Chemistry - Specials (test Non-Reactive NonReactive code = INTHEPC) [id number] 22:12:00 Test Item Value Reference Range Interpretation [...] code 196 U/L 8-55 H = ALT) [id number] 22:12:00 Test Item Value Reference Range Interpretation Comments Chemistry (test code = LIP) 22 U/L 8-78 N Edgvewdyex4456-98-09 21:50:00 Test Item Value Reference Range Interpretation [...] code = BASO#) 0.1 thou/uL 0.0-0.2 N Lmtpxfvok9313-43-01 22:49:00 Test Item Value Reference Range Interpretation [...] 78 U/L 8-55 H code = ALT) Egyyeilbs7987-58-09 22:49:00 Test Item Value Reference Range Interpretation Comments Chemistry (test code = LIP) 12 U/L 8-78 N Iuflkkkvgb7975-46-00 22:24:00 Test Item Value Reference Range Interpretation [...] code = BASO#) 0.0 thou/uL 0.0-0.2 N Tqulvpghpi6161-02-20 22:00:00 Test Item Value Reference Range Interpretation [...] UABLD) Negative Negative Urine Source: Urine Clean VtwonOdtwtbzv0303-86-36 09:28:00 Test Item Value Reference Range Interpretation Comments Accuchek (test code = ACU) 99 mg/dL 70-110 N Ewrulpnxyi2944-43-21 09:14:00 Test Item Value Reference Range Interpretation [...] UABLD) Negative Negative Urine Source: Urine Clean FlnqnWawtpdakwn2037-66-54 21:28:00 Test Item Value Reference Range Interpretation [...] UABLD) Negative Negative Urine Source: Urine Clean IpwzvApuyiyczp2090-47-21 21:09:00 Test Item Value Reference Range Interpretation [...] 95 U/L 8-55 H code = ALT) Kmzqmlafe7580-36-08 21:09:00 Test Item Value Reference Range Interpretation Comments Chemistry (test code = LIP) 39 U/L 8-78 N [id number] 20:49:00 Test Item Value Reference Range Interpretation [...] code = BASO#) 0.0 thou/uL 0.0-0.2 N Pivjcfmqzk5099-09-57 21:34:00 Test Item Value Reference Range Interpretation [...] desired. Presu mptive positive urines are held [facility]. Urine Source: Urine Clean VbpoeIitzkexljb7619-56-08 19:17:00 Test Item Value Reference Range Interpretation [...] = UABLD) Negative Negative Urine Source: Urine BuciaqMkmaobfnk5576-73-38 18:48:00 Test Item Value Reference Range Interpretation [...] code 84 U/L 8-55 H = ALT) [id number] 18:48:00 Test Item Value Reference Range Interpretation Comments Chemistry (test code = JORGE) 53.0 U/L 25-125 N Qfwmmwyos7987-03-44 18:48:00 Test Item Value Reference Range Interpretation Comments Chemistry (test code = LIP) 10 U/L 8-78 N Lamwusvrvw3579-73-95 18:19:00 Test Item Value Reference Range Interpretation [...] = BASO#) 0.1 thou/uL 0.0-0.2 N Culture, [id number] 10:22:00 Test Item Value Reference Range Interpretation Comments Culture, Urine (test code = URC) NF N Culture, Urine (test code = URC1) 10 MSF N [id number] 17:38:00 Test Item Value Reference Range Interpretation Comments Chemistry (test code = PHOS) 2.9 mg/dL 2.3-4.7 N [id number] 17:04:00 Test Item Value Reference Range Interpretation [...] H = ALT) Chemistry - BNP, HgbA1c, [id number] 17:04:00 Test Item Value Reference Range Interpretation Comments Chemistry - BNP, 4.9 % 4.0-6.0 N Therapeutic goals for glycemic HgbA1c, PTHi (test control ( ADA)Adults:- Goal of code = RCGB5YS) therapy: Les s than 7.0% HbA1c- Action suggeste d: Greater than 8.0% RqB9mEyetw tric patients:- Toddlers and pr eschoolers: Less than 8.5% (but Greater than 7.5%)- Katelynn ool age (6-12 years): Less th an 8%- Adolescents and young adults (13-19 years): Less than 7.5%Diagnosing diabetes (ADA)- HbA1c: Greater than or equal to 6.5% Values of 5.7 - 6.4% indicate HIGH risk for developing DiabetesInterna tional Expert Committee Repor t on the Role of the E9FPlpgh in the Diagnosis of Di abetes. Diabetes Care 2009July;32(7): 1327-1334ADA, Diagnosis cla ssification of diabetes carlitos us.Diabetes Care 2010; 33 S uppl 1:S62 Fdzoeuqqk0224-04-53 16:59:00 Test Item Value Reference Range Interpretation Comments Chemistry (test code = CRP) 1.16 mg/dL = or < 0.5 H What test does the doctor want? C-REACTIVE PROTEIN (CRP)Gyatlqeoor9562-93-15 16:53:00 Test Item Value Reference Range Interpretation [...] HPF None Seen Urine Source: Urine Clean TiktgBrtgzepalv3848-05-22 16:46:00 Test Item Value Reference Range Interpretation [...] code = BASO#) 0.1 thou/uL 0.0-0.2 N Zauupqtzmp3467-07-12 21:59:00 Test Item Value Reference Range Interpretation [...] Urine Clean CatchSepsis - Lactic Acid >2 [id number] 23:59:00 Test Item Value Reference Range Interpretation Comments Sepsis - Lactic Additional Lactate testin g will be Acid >2 Rflx performed in 3 hrs (test code = according to kenny RVRDK6U) SepsisProtocol. [id number] 21:12:00 Test Item Value Reference Range Interpretation Comments Chemistry (test code = JORGE) 59.0 U/L 25-125 N [id number] 20:59:00 Test Item Value Reference Range Interpretation [...] 87 U/L 8-55 H code = ALT) [id number] 20:59:00 Test Item Value Reference Range Interpretation Comments Chemistry (test code = LIP) 32 U/L 8-78 N Chemistry - Nrcnqhm1727-59-80 20:59:00 Test Item Value Reference Range Interpretation Comments Chemistry - Lactate (test code = 2.1 mmol/L 0.5-2.2 N LACTSEP-T) [id number] 20:43:00 Test Item Value Reference Range Interpretation [...] = UABLD) Negative Negative Urine Source: Urine MacpcfShiyfkeizx3654-36-22 20:37:00 Test Item Value Reference Range Interpretation [...]
[2020-10-06] MEDS ORDERED: MEPERIDINE HCL 25 MG/ML SYR ONE ×2 (00:07→02:54)
[2020-10-06] MEDS ORDERED: ONDANSETRON 4 MG/2 ML VIAL ONE (00:07)
[2020-10-06 00:11] LABS: Absolute Lymphocytes (CBC) 1.1 K/uL (0.7-4.9); Basophils % 0.5 % (0-1.3); Hematocrit 32.8 % (36.0-45.0); Lymphocytes % 22.8 % (15.3-44.8); MPV 8.6 fL (7.6-11.3); RBC Red Blood Cell Count 3.74 M/uL (3.86-4.86)
[2020-10-06 01:26] LABS: Bilirubin Direct 0.3 mg/dL (0-0.2); Bilirubin Total 0.6 mg/dL (0.2-1.0)
[2020-10-06 01:27] LABS: Albumin 3.3 g/dL (3.4-5.0)
--- NOTE | 2020-10-06 01:33 | ER ---
Nurse's Notes [facility] Name: Yessenia Aleman Age: 59 yrs Sex: Female : 1960 Arrival Date: 10/05/2020 Time: 22:08 Bed 5 Private MD: Jeannie Slade Diagnosis: Other chronic pancreatitis Presentation: 10/05 22:19 Chief complaint: Patient states: N/V and abdominal pain for 2 days, hx of pancreatitis. em Coronavirus screen: Client denies travel out of the [place] in the last 14 days. Ebola Screen: Patient negative for fever greater than or equal to 101.5 degrees Fahrenheit, and additional compatible Ebola Virus Disease symptoms Patient denies exposure to infectious person. Patient denies travel to an Ebola-affected area in the 21 days before illness onset. No symptoms or risks identified at this time. Initial Sepsis Screen: Does the patient meet any 2 criteria? HR > 90 bpm. Yes Does the patient have a suspected source of infection? No. Patient's initial sepsis screen is negative. Risk Assessment: Do you want to hurt yourself or someone else? Patient reports no desire to harm self or others. Onset of symptoms was October 05, 2020. 22:19 Method Of Arrival: Ambulatory em 22:19 Acuity: HOLLI 2 em Historical: - Allergies: 22:21 Codeine; em - PMHx: 22:21 Anxiety; Arthritis; biliary chirrosis; biliary disease; CHF; Chronic Pancreatitis; em Cirrhosis; Hypertension; Pancreatitis; Pneumonia; - PSHx: 22:21 Cholecystectomy; Appendectomy; Bile duct stent; em - Immunization history:: Adult Immunizations up to date. - Social history:: Smoking status: Patient denies any tobacco usage or history of. Screenin:30 Abuse screen: Denies threats or abuse. Nutritional screening: No deficits noted. jb4 Tuberculosis screening: Fall Risk None identified. Assessment: 22:30 General: Appears in no apparent distress. uncomfortable, Behavior is calm, cooperative, jb4 appropriate for age. Pain: Complains of pain in abdomen Pain does not radiate. Pain currently is 8 out of 10 on a pain scale. Neuro: Level of Consciousness is awake, alert, obeys commands, Oriented to person, place, time, situation. Cardiovascular: Patient's skin is warm and dry. Respiratory: Airway is patent Respiratory effort is even, unlabored, Respiratory pattern is regular, symmetrical. GI: Abdomen is non-distended, obese. : No signs and/or symptoms were reported regarding the genitourinary system. EENT: No signs and/or symptoms were reported regarding the EENT system. Derm: Skin is intact, Skin is pink, warm \T\ dry. Musculoskeletal: Circulation, motion, and sensation intact. Range of motion: intact in all extremities. 10/06 00:00 Reassessment: Patient appears in no apparent distress at this time. Patient and/or jb4 family updated on plan of care and expected duration. Pain level reassessed. Patient is alert, oriented x 3, equal unlabored respirations, skin warm/dry/pink. 01:00 Reassessment: Patient appears in no apparent distress at this time. Patient and/or ad5 family updated on plan of care and expected duration. Pain level reassessed. Patient is alert, oriented x 3, equal unlabored respirations, skin warm/dry/pink. 02:37 Reassessment: Patient appears in no apparent distress at this time. No changes from ad5 previously documented assessment. Patient and/or family updated on plan of care and expected duration. Pain level reassessed. Patient states feeling better. Vital Signs: 10/05 22:19 BP 153 / 108; Pulse 129; Resp 20; Temp 98.5; Pulse Ox 96% on R/A; Weight 77.11 kg; em Height 5 ft. 0 in. (152.40 cm); Pain 8/10; 10/06 00:33 BP 147 / 99; Pulse 98; Resp 18 S; Pulse Ox 96% on R/A; ad5 01:30 BP 124 / 76; Pulse 91; Resp 16 S; Pulse Ox 96% on R/A; ad5 02:30 BP 143 / 95; Pulse 81; Resp 16 S; Pulse Ox 96% on R/A; ad5 10/05 22:19 Body Mass Index 33.20 (77.11 kg, 152.40 cm) em ED Course: 10/05 22:08 Patient arrived in ED. es 22:08 Jeannie Slade MD is Private Physician. es 22:20 Triage completed. em 22:21 Arm band placed on. em 22:30 Severiano Whitley RN is Primary Nurse. jb4 22:30 Kyler Flores MD is Attending Physician. irene 22:30 [facility] Manriquez [facility] jr8 22:30 Patient has correct armband on for positive identification. Bed in low position. Call jb4 light in reach. Side rails up X 1. 22:31 Attending Physician role handed off by Kyler Flores MD jr8 22:31 Meek Fitzpatrick MD is Attending Physician. jr8 22:31 Kyler Flores MD florist manager. 8 23:41 Kyler Flores MD is Attending Physician. jr8 10/06 00:00 Missed attempt(s): 18 gauge in right antecubital area. 22 gauge in right forearm. jb4 00:25 Repeat lab(s) drawn. sent to lab. Inserted saline lock: 22 gauge in right hand, using jb4 aseptic technique. Blood collected. 02:38 No provider procedures requiring assistance completed. IV discontinued, intact, ad5 bleeding controlled, No redness/swelling at site. Pressure dressing applied. Administered Medications: 00:30 Drug: Zofran (Ondansetron) 4 mg Route: IVP; Site: right hand; jb4 02:31 Follow up: Response: No adverse reaction ad5 00:32 Drug: Demerol (meperidine) 25 mg Route: IVP; Site: right hand; jb4 02:31 Follow up: Response: No adverse reaction; RASS: Alert and Calm (0) ad5 02:36 Drug: Demerol (meperidine) 25 mg Route: IVP; Site: right hand; ad5 03:01 Follow up: Response: No adverse reaction; Pain is decreased ad5 Outcome: 01:32 Discharge ordered by . [facility] 03:01 Discharged to home ambulatory, with significant other. ad5 03:01 Condition: stable 03:01 Discharge instructions given to patient, Instructed on discharge instructions, follow up and referral plans. Demonstrated understanding of instructions, follow-up care. 03:02 Patient left the ED. ad5 Signatures: Kyler Flores MD MD cha Salyer, Edna es Munoz, Edgar, RN Roderick Hopson PA PA jr Severiano Whitley RN RN [facility] Jhonatan Farmer ad5
--- NOTE | 2020-10-06 01:33 | EDPHYS ---
Physician Documentation [facility] Name: Yessenia Aleman Age: 59 yrs Sex: Female : 1960 Arrival Date: 10/05/2020 Time: 22:08 Bed 5 Private MD: Jeannie Slade ED Physician Kyler Flores HPI: 10/05 23:41 This 59 yrs old Female presents to ER via Ambulatory with complaints of jr8 Abdominal Pain, Back Pain. 23:41 The patient presents with abdominal pain in the epigastric area, in the upper abdomen. jr8 Onset: The symptoms/episode began/occurred acutely, today. The symptoms radiate to back. Associated signs and symptoms: Pertinent positives: nausea. The symptoms are described as shooting. Modifying factors: The symptoms are alleviated by nothing, the symptoms are aggravated by nothing. Severity of pain: At its worst the pain was moderate in the emergency department the pain is unchanged. The patient has experienced similar episodes in the past, several times. The patient has not recently seen a physician. 23:41 Patient with history of chronic pancreatitis. Had biliary stents placed two months ago jr8 and then taken out 2 weeks ago because they were not working. Came in today for increased upper abdominal pain . Historical: - Allergies: 22:21 Codeine; em - PMHx: 22:21 Anxiety; Arthritis; biliary chirrosis; biliary disease; CHF; Chronic Pancreatitis; em Cirrhosis; Hypertension; Pancreatitis; Pneumonia; - PSHx: 22:21 Cholecystectomy; Appendectomy; Bile duct stent; em - Immunization history:: Adult Immunizations up to date. - Social history:: Smoking status: Patient denies any tobacco usage or history of. ROS: 23:41 Eyes: Negative for injury, pain, redness, and discharge, ENT: Negative for injury, jr8 pain, and discharge, Neck: Negative for injury, pain, and swelling, Cardiovascular: Negative for chest pain, palpitations, and edema, Respiratory: Negative for shortness of breath, cough, wheezing, and pleuritic chest pain, Back: Negative for injury and pain, MS/Extremity: Negative for injury and deformity, Skin: Negative for injury, rash, and discoloration, Neuro: Negative for headache, weakness, numbness, tingling, and seizure. 23:41 Abdomen/GI: Positive for abdominal pain, nausea. Exam: 23:41 Constitutional: This is a well developed, well nourished patient who is awake, alert, jr8 and in no acute distress. Cardiovascular: Regular rate and rhythm with a normal S1 and S2. No gallops, murmurs, or rubs. Normal PMI, no JVD. No pulse deficits. Respiratory: Lungs have equal breath sounds bilaterally, clear to auscultation and percussion. No rales, rhonchi or wheezes noted. No increased work of breathing, no retractions or nasal flaring. Back: No spinal tenderness. No costovertebral tenderness. Full range of motion. Skin: Warm, dry with normal turgor. Normal color with no rashes, no lesions, and no evidence of cellulitis. MS/ Extremity: Pulses equal, no cyanosis. Neurovascular intact. Full, normal range of motion. Neuro: Awake and alert, GCS 15, oriented to person, place, time, and situation. Cranial nerves II-XII grossly intact. Motor strength 5/5 in all extremities. Sensory grossly intact. Cerebellar exam normal. Normal gait. 23:41 Abdomen/GI: Inspection: abdomen appears normal, Bowel sounds: active, all quadrants, Palpation: soft, in all quadrants, moderate abdominal tenderness, in the epigastric area, rebound tenderness, is not appreciated, voluntary guarding, is not appreciated, involuntary guarding, is not appreciated, no appreciated organomegaly, Indicators: McBurney's point is not tender, Arredondo's sign is negative, Rovsing's sign is negative, Liver: tenderness, is not appreciated. Vital Signs: 22:19 BP 153 / 108; Pulse 129; Resp 20; Temp 98.5; Pulse Ox 96% on R/A; Weight 77.11 kg; em Height 5 ft. 0 in. (152.40 cm); Pain 8/10; 10/06 00:33 BP 147 / 99; Pulse 98; Resp 18 S; Pulse Ox 96% on R/A; ad5 01:30 BP 124 / 76; Pulse 91; Resp 16 S; Pulse Ox 96% on R/A; ad5 02:30 BP 143 / 95; Pulse 81; Resp 16 S; Pulse Ox 96% on R/A; ad5 10/05 22:19 Body Mass Index 33.20 (77.11 kg, 152.40 cm) em MDM: 10/05 22:31 Patient medically screened. [facility] 10/06 01:29 Data reviewed: vital signs, nurses notes, lab test result(s), and as a result, I will jr discharge patient. Data interpreted: Pulse oximetry: on room air is 96 %. Interpretation: normal. Counseling: I had a detailed discussion with the patient and/or guardian regarding: the historical points, exam findings, and any diagnostic results supporting the discharge/admit diagnosis, lab results, the need for outpatient follow up, a sas programmer, to return to the emergency department if symptoms worsen or persist or if there are any questions or concerns that arise at home. ED course: ALK elevated but recently had biliary instrumentation which would cause this. Patients pain markedly improved. No signs of acute abdomen. Lipase only minimally elevated. Referred to GI. Return precautions given. Patient good with plan . 10/05 22:33 Order name: Basic Metabolic Panel [facility] 10/05 22:33 Order name: CBC with Diff [facility] 10/05 22:33 Order name: Hepatic Function [facility] 10/05 22:33 Order name: Lipase [facility] 10/06 00:21 Order name: CBC with Automated Diff; Complete Time: 00:36 [facility] 10/06 01:26 Order name: Basic Metabolic Panel; Complete Time: 01:28 [facility] 10/05 22:33 Order name: IV Saline Lock; Complete Time: 00:57 [facility] 10/05 22:33 Order name: Labs collected and sent; Complete Time: 00:01 [facility] 10/06 01:27 Order name: Liver (Hepatic) Function; Complete Time: 01:28 [facility] 10/06 01:27 Order name: Lipase; Complete Time: 01:28 [facility] Administered Medications: 00:30 Drug: Zofran (Ondansetron) 4 mg Route: IVP; Site: right hand; jb4 02:31 Follow up: Response: No adverse reaction ad5 00:32 Drug: Demerol (meperidine) 25 mg Route: IVP; Site: right hand; jb4 02:31 Follow up: Response: No adverse reaction; RASS: Alert and Calm (0) ad5 02:36 Drug: Demerol (meperidine) 25 mg Route: IVP; Site: right hand; ad5 03:01 Follow up: Response: No adverse reaction; Pain is decreased ad5 Disposition: 11:26 Co-signature as Attending Physician, Kyler Flores MD I agree with the assessment and irene plan of care. Disposition: 10/06/20 01:32 Discharged to Home. Impression: Other chronic pancreatitis. - Condition is Stable. - Discharge Instructions: Chronic Pancreatitis. - Medication Reconciliation Form, Thank You Letter, Antibiotic Education, Prescription Opioid Use form. - Follow up: Private Physician; When: 2 - 3 days; Reason: Recheck today's complaints, Continuance of care, Re-evaluation by your physician. - Problem is new. - Symptoms have improved. Signatures: Dispatcher [employer] Kyler Arana MD MD cha Munoz, Edgar, RN RN Roderick Hobson PA PA jr8 Won Marmolejo, MOVIE ACTOR-C MOVIE ACTOR-Cla1 Severiano Whitley, RN RN jb4 Jhonatan Farmer ad5 Corrections: (The following items were deleted from the chart) 03:02 01:32 10/06/2020 01:32 Discharged to Home. Impression: Other chronic pancreatitis. ad5 Condition is Stable. Forms are Medication Reconciliation Form, Thank You Letter, Antibiotic Education, Prescription Opioid Use. Follow up: Private Physician; When: 2 - 3 days; Reason: Recheck today's complaints, Continuance of care, Re-evaluation by your physician. Problem is new. Symptoms have improved. jr8
[2020-10-06 03:11] VITALS: TEMP 98.5; O2SAT 96
[2020-10-06 03:16] VITALS: BP 143/95
== END 2020-10-06 03:02 | disposition home or self-care (01) ==
LOC: ER 22:05
DX: K86.1 Other chronic pancreatitis (principal); I10 Essential (primary) hypertension; Z88.5 Allergy status to narcotic agent
CPT/HCPCS: 85025; 80048; 36415; 80076; 83690; J2175

== ENCOUNTER 2021-01-19 17:05 | Inpatient (IN) | payer OTHER ==
[2021-01-19] MEDS ORDERED: NA CHLORIDE 0.9% 500 ML ONE (18:19)
[2021-01-19] MEDS ORDERED: ONDANSETRON 4 MG/2 ML VIAL ONE (18:19)
[2021-01-19] MEDS ORDERED: MORPHINE 4 MG/ML SYR ONE ×2 (18:19→21:49)
[2021-01-19 18:22] LABS: Absolute Lymphocytes (CBC) 1.4 K/uL (0.7-4.9); Basophils % 0.8 % (0-1.3); Hematocrit 32.4 % (36.0-45.0); MPV 8.8 fL (7.6-11.3); RBC Red Blood Cell Count 3.65 M/uL (3.86-4.86)
[2021-01-19 18:28] LABS: Urine Blood Negative (Negative); Urine Glucose Negative (Negative); Urine Protein Negative (Negative); Urine pH 6.5 (5.0-7.0)
[2021-01-19 18:34] LABS: ALT/SGPT 92 U/L (12-78); AST/SGOT 88 U/L (15-37); Albumin 3.4 g/dL (3.4-5.0); Alkaline Phosphatase 673 U/L (45-117); BUN Blood Urea Nitrogen 11 mg/dL (7-18); Bicarbonate 25 mmol/L (21-32); Bilirubin Direct 0.8 mg/dL (0-0.2); Glucose Level 101 mg/dL (74-106); Lipase 205 U/L (73-393); Potassium 4.8 mmol/L (3.5-5.1); Protein, Total 8.2 g/dL (6.4-8.2); Sodium Level 137 mmol/L (136-145)
--- NOTE | 2021-01-19 22:22 | RAD REPORT ---
EXAM DESCRIPTION: CT - Abdomen Pelvis W Contrast - 01/19/2021 9:56 pm CLINICAL HISTORY: ABD PAIN COMPARISON: <Comparisons> TECHNIQUE: Biphasic, helical CT imaging of the abdomen and pelvis was performed following 100 ml non -ionic IV contrast. No oral contrast administered. All CT scans are performed using dose optimization technique as appropriate and may include automated exposure control or mA/KV adjustment according to patient size. FINDINGS: No suspicious findings in the lung bases. No focal liver lesion. Attenuation is borderline to mildly fatty infiltrated. No portal vein abnormal ity. No splenic abnormality seen. No pancreas or peripancreatic abnormality. Gallbladder is absent. N o biliary tree dilatation. Pneumobilia is again noted. Symmetric renal function is seen with no hydronephrosis or suspicious renal mass. No pyelonephritis o r acute parenchymal process. No bladder abnormalities. No adrenal abnormalities. No gastric dilatation gastric wall thickening. Duodenum is unremarkable. Dilated small bowel loop in the mid abdomen is present with fecalized bowel content. Small bowel proximal and distal to the invol chelita loop is normal in diameter. Terminal ileum is unremarkable. Appendectomy clips are seen. Moderate stool volume is present in tortuous and redundant colon. Primary colon process is not seen. No uterine or ovarian abnormality. No free air, free fluid or inflammatory stranding. No hernia, mass or bulky lymphadenopathy. No suspicious bony findings. IMPRESSION: Dilated mid small bowel containing fecalized bowel content. Small bowel proximal and dis maru to the involved loop normal in diameter. Findings could reflect a focal ileus or enteritis. Early closed-loop mechanical small bowel obstruct ion from adhesions or internal hernia would be possible. No free air, abscess or surgically emergent finding.
--- NOTE | 2021-01-19 23:02 | ER ---
Nurse's Notes [facility] Name: Yessenia Aleman Age: 60 yrs Sex: Female : 1960 Arrival Date: 01/19/2021 Time: 17:07 Bed 13 Private MD: Diagnosis: Abdominal pain, Generalized;Nausea;Small bowel obstruction Presentation: 01/19 17:21 Chief complaint: Patient states: Epigastric pain, radiates to RUQ and around to back, jl7 N/V/D x 3 days. Coronavirus screen: At this time, the client does not indicate any symptoms associated with coronavirus-19. Ebola Screen: No symptoms or risks identified at this time. Initial Sepsis Screen: Does the patient meet any 2 criteria? No. Patient's initial sepsis screen is negative. Does the patient have a suspected source of infection? No. Patient's initial sepsis screen is negative. Risk Assessment: Do you want to hurt yourself or someone else? Patient reports no desire to harm self or others. Onset of symptoms was January 17, 2021. 17:21 Method Of Arrival: Ambulatory 7 17:21 Acuity: HOLLI 3 jl7 Triage Assessment: 17:22 General: Appears in no apparent distress. uncomfortable, Behavior is calm, cooperative, jl7 appropriate for age. Pain: Complains of pain in epigastric area Pain currently is 8 out of 10 on a pain scale. GI: Reports diarrhea, nausea, vomiting. Historical: - Allergies: 17:22 Codeine; jl7 - Home Meds: 17:22 losartan 100 mg Oral tab 1 tab once daily for Hypertension [Active]; [place] 10-325 mg jl7 Oral tab 1 tab twice a day for Pain [Active]; Phenergan Oral [Active]; gabapentin Oral [Active]; Trazodone Oral [Active]; tizanidine oral [Active]; - PMHx: 17:22 Anxiety; Arthritis; biliary chirrosis; biliary disease; Chronic Pancreatitis; jl7 Cirrhosis; Hypertension; Pancreatitis; Pneumonia; - PSHx: 17:22 Biliary stents; Biliary stent removal; Appendectomy; Cholecystectomy; jl7 - Immunization history:: Client reports receiving the 2nd dose of the Covid vaccine, Moderna. - Social history:: Smoking status: Patient denies any tobacco usage or history of. Screenin:20 Abuse screen: Denies threats or abuse. Denies injuries from another. Nutritional ch5 screening: No deficits noted. Tuberculosis screening: No symptoms or risk factors identified. Fall Risk None identified. Assessment: 18:32 Reassessment: No changes from previously documented assessment. General: Appears ch5 uncomfortable, Behavior is cooperative, appropriate for age, agitated. Pain: Complains of pain in epigastric area Pain currently is 10 out of 10 on a pain scale. GI: Bowel sounds present X 4 quads. Abdomen is tender to palpation. 20:04 Reassessment: Patient appears in no apparent distress at this time. No changes from ms4 previously documented assessment. Patient and/or family updated on plan of care and expected duration. Pain level reassessed. Patient is alert, oriented x 3, equal unlabored respirations, skin warm/dry/pink. General: Appears in no apparent distress. Behavior is calm, cooperative, appropriate for age. 01/20 01:22 Reassessment: report given to lucius corral. ms4 Vital Signs: 01/19 17:21 BP 119 / 98; Pulse 70; Resp 19; Temp 97.8; Pulse Ox 100% on R/A; Weight 81.65 kg (R); jl7 Height 5 ft. 0 in. (152.40 cm); Pain 8/10; 18:20 BP 119 / 77; Pulse 59; Resp 18; Pulse Ox 98% ; Pain 10/10; ch5 21:30 BP 134 / 100; Pulse 78; Resp 18; Temp 98.4; Pulse Ox 100% on R/A; Pain 9/10; ms4 23:55 BP 140 / 117; Pulse 78; Resp 18; Pulse Ox 100% on R/A; ms4 01/20 01:19 BP 168 / 101; Pulse 78; Resp 18; Pulse Ox 100% on R/A; Pain 7/10; ms4 01/19 17:21 Body Mass Index 35.15 (81.65 kg, 152.40 cm) jl7 ED Course: 01/19 17:07 Patient arrived in ED. as 17:22 Triage completed. jl7 17:22 Arm band placed on right wrist. jl7 17:28 Jose Luis Jain RN is Primary Nurse. ch5 17:51 Roderick Manriquez PA is PHCP. jr8 17:51 Kyler Flores MD is Attending Physician. jr8 18:20 Patient has correct armband on for positive identification. Bed in low position. Call ch5 light in reach. Side rails up X2. 18:31 Urine Dipstick-Ancillary Sent. ch5 18:31 Basic Metabolic Panel Sent. ch5 18:31 Hepatic Function Sent. ch5 18:31 Lipase Sent. ch5 21:22 Troponin (emerg Dept Use Only) Sent. ms4 21:56 CT Abd/Pelvis - IV Contrast Only In Process Unspecified. EDMS 23:01 Philip Astorga MD is Hospitalizing Provider. jr8 23:36 COVID-19 : Document "Date of Symptom Onset" if Symptomatic. Sent. ms4 23:47 CORONAVIRUS Sent. ms4 Administered Medications: 18:30 Drug: NS 0.9% 500 ml Route: IV; Rate: bolus; Site: right wrist; ch5 18:31 Drug: Zofran (Ondansetron) 4 mg Route: IVP; Site: left wrist; ch5 18:31 Drug: morphine 4 mg Route: IVP; Site: right wrist; ch5 21:27 Drug: morphine 4 mg Route: IVP; Site: right hand; ms4 23:12 Drug: Cipro (ciprofloxacin) 400 mg Volume: 200 ml; Route: IVPB; Infused Over: 60 mins; bs2 Site: right hand; 23:44 Drug: Mineral Oil 30 ml Route: PO; ms4 01/20 00:53 Drug: Flagyl (metroNIDAZOLE) 500 mg Volume: 100 ml; Route: IVPB; Rate: 200 ml/hr; ms4 Infused Over: 30 mins; Site: right hand; Outcome: 01/19 23:01 Decision to Hospitalize by Provider. jr8 01/20 01:23 Patient left the ED. ms4 Signatures: Dispatcher [employer] EDMS Stephanie Messina Josh, PA PA jr8 Joo Samano RN RN jl7 Stacia Pan RN RN bs2 Airam Quiros RN RN ms4 Jose Luis Jain, LUCIUS RN ch5 Corrections: (The following items were deleted from the chart) 01/19 17:25 17:22 PMHx: CHF; radha jl7 18:30 18:30 NS 0.9% 500 ml IV at bolus in right hand ch5 ch5
--- NOTE | 2021-01-19 23:02 | EDPHYS ---
Physician Documentation [facility] Name: Yessenia Aleman Age: 60 yrs Sex: Female : 1960 Arrival Date: 01/19/2021 Time: 17:07 Bed 13 Private MD: MAGDALENE Physician Kyler Flores HPI: 01/19 19:02 This 60 yrs old Female presents to ER via Ambulatory with complaints of jr8 Abdominal Pain - pancreatitis, Vomiting, Back Pain. 19:02 The patient presents with abdominal pain in the upper abdomen. Onset: The jr8 symptoms/episode began/occurred acutely, today. The symptoms radiate to back. Associated signs and symptoms: Pertinent positives: nausea and vomiting. The symptoms are described as stabbing. Modifying factors: The symptoms are alleviated by nothing, the symptoms are aggravated by nothing. Severity of pain: At its worst the pain was moderate in the emergency department the pain is unchanged. The patient has experienced similar episodes in the past, a few times. The patient has not recently seen a physician. A 60-year-old female patient that came in with upper abdominal pain rating to the back with nausea and vomiting. Patient has a history of pancreatitis. Last episode is been a while. Has had no recent change in medications or dietary habits. Started with the pain this morning is progressed throughout the day.. Historical: - Allergies: 17:22 Codeine; jl7 - Home Meds: 17:22 losartan 100 mg Oral tab 1 tab once daily for Hypertension [Active]; [place] 10-325 mg jl7 Oral tab 1 tab twice a day for Pain [Active]; Phenergan Oral [Active]; gabapentin Oral [Active]; Trazodone Oral [Active]; tizanidine oral [Active]; - PMHx: 17:22 Anxiety; Arthritis; biliary chirrosis; biliary disease; Chronic Pancreatitis; jl7 Cirrhosis; Hypertension; Pancreatitis; Pneumonia; - PSHx: 17:22 Biliary stents; Biliary stent removal; Appendectomy; Cholecystectomy; jl7 - Immunization history:: Client reports receiving the 2nd dose of the Covid vaccine, Moderna. - Social history:: Smoking status: Patient denies any tobacco usage or history of. ROS: 19:02 Eyes: Negative for injury, pain, redness, and discharge, ENT: Negative for injury, jr8 pain, and discharge, Neck: Negative for injury, pain, and swelling, Cardiovascular: Negative for chest pain, palpitations, and edema, Respiratory: Negative for shortness of breath, cough, wheezing, and pleuritic chest pain, Back: Negative for injury and pain, MS/Extremity: Negative for injury and deformity, Skin: Negative for injury, rash, and discoloration, Neuro: Negative for headache, weakness, numbness, tingling, and seizure. 19:02 Abdomen/GI: Positive for abdominal pain, nausea and vomiting, Negative for diarrhea. Exam: 19:02 Constitutional: This is a well developed, well nourished patient who is awake, alert, jr8 and in no acute distress. Cardiovascular: Regular rate and rhythm with a normal S1 and S2. No gallops, murmurs, or rubs. Normal PMI, no JVD. No pulse deficits. Respiratory: Lungs have equal breath sounds bilaterally, clear to auscultation and percussion. No rales, rhonchi or wheezes noted. No increased work of breathing, no retractions or nasal flaring. Back: No spinal tenderness. No costovertebral tenderness. Full range of motion. Skin: Warm, dry with normal turgor. Normal color with no rashes, no lesions, and no evidence of cellulitis. MS/ Extremity: Pulses equal, no cyanosis. Neurovascular intact. Full, normal range of motion. Neuro: Awake and alert, GCS 15, oriented to person, place, time, and situation. Cranial nerves II-XII grossly intact. Motor strength 5/5 in all extremities. Sensory grossly intact. 19:02 Abdomen/GI: Inspection: obese Bowel sounds: normal, Palpation: soft, in all quadrants, moderate abdominal tenderness, in the epigastric area, right upper quadrant and left upper quadrant, mass, is not appreciated, rebound tenderness, is not appreciated, voluntary guarding, is not appreciated, involuntary guarding, is not appreciated, no appreciated organomegaly, Indicators: McBurney's point is not tender, Arredondo's sign is negative, Rovsing's sign is negative. Vital Signs: 17:21 BP 119 / 98; Pulse 70; Resp 19; Temp 97.8; Pulse Ox 100% on R/A; Weight 81.65 kg (R); jl7 Height 5 ft. 0 in. (152.40 cm); Pain 8/10; 18:20 BP 119 / 77; Pulse 59; Resp 18; Pulse Ox 98% ; Pain 10/10; ch5 21:30 BP 134 / 100; Pulse 78; Resp 18; Temp 98.4; Pulse Ox 100% on R/A; Pain 9/10; ms4 23:55 BP 140 / 117; Pulse 78; Resp 18; Pulse Ox 100% on R/A; ms4 01/20 01:19 BP 168 / 101; Pulse 78; Resp 18; Pulse Ox 100% on R/A; Pain 7/10; ms4 01/19 17:21 Body Mass Index 35.15 (81.65 kg, 152.40 cm) jl7 MDM: 01/19 17:51 Patient medically screened. jr8 22:53 Data reviewed: vital signs, nurses notes, lab test result(s), radiologic studies, CT jr8 scan. Data interpreted: Pulse oximetry: on room air is 100 %. Counseling: I had a detailed discussion with the patient and/or guardian regarding: the historical points, exam findings, and any diagnostic results supporting the discharge/admit diagnosis, lab results, radiology results, the need for further work-up and treatment in the hospital. 01/19 17:51 Order name: Basic Metabolic Panel; Complete Time: 19:12 [facility] 01/19 17:51 Order name: CBC with Diff; Complete Time: 19:12 [facility] 01/19 17:51 Order name: Hepatic Function; Complete Time: 19:12 [facility] 01/19 17:51 Order name: Lipase; Complete Time: 19:12 [facility] 01/19 18:28 Order name: Urine Dipstick-Ancillary [facility] 01/19 21:14 Order name: Troponin (emerg Dept Use Only); Complete Time: 22:18 [facility] 01/19 21:14 Order name: CT Abd/Pelvis - IV Contrast Only; Complete Time: 22:47 [facility] 01/19 23:23 Order name: COVID-19 : Document "Date of Symptom Onset" if Symptomatic. [facility] 01/19 23:38 Order name: CORONAVIRUS [facility] 01/20 00:29 Order name: SARS-COV-2 RT PCR; Complete Time: 00:33 [facility] 01/19 17:51 Order name: IV Saline Lock; Complete Time: 18:31 [facility] 01/19 17:51 Order name: Labs collected and sent; Complete Time: 18:31 jr8 01/19 21:14 Order name: EKG - Nurse/Tech; Complete Time: 21:27 jr8 01/19 23:08 Order name: CONS Physician Consult [facility] Administered Medications: 18:30 Drug: NS 0.9% 500 ml Route: IV; Rate: bolus; Site: right wrist; ch5 18:31 Drug: Zofran (Ondansetron) 4 mg Route: IVP; Site: left wrist; ch5 18:31 Drug: morphine 4 mg Route: IVP; Site: right wrist; ch5 21:27 Drug: morphine 4 mg Route: IVP; Site: right hand; ms4 23:12 Drug: Cipro (ciprofloxacin) 400 mg Volume: 200 ml; Route: IVPB; Infused Over: 60 mins; bs2 Site: right hand; 23:44 Drug: Mineral Oil 30 ml Route: PO; ms4 01/20 00:53 Drug: Flagyl (metroNIDAZOLE) 500 mg Volume: 100 ml; Route: IVPB; Rate: 200 ml/hr; ms4 Infused Over: 30 mins; Site: right hand; Disposition Summary: 01/19/21 23:01 Hospitalization Ordered Hospitalization Status: Observation jr8 Provider: Philip Astorga jr Location: Telemetry/MedSurg (observation) [facility] Condition: Stable jr8 Problem: new jr8 Symptoms: are unchanged jr8 Bed/Room Type: Standard [facility] Room Assignment: 205(01/20/21 00:51) Diagnosis - Abdominal pain, Generalized jr8 - Nausea jr8 - Small bowel obstruction jr Forms: - Medication Reconciliation Form jr8 - SBAR form jr8 Addendum: 01/23/2021 06:59 Co-signature as Attending Physician, Kyler Flores MD I agree with the assessment and c mcallister plan of care. Signatures: Dispatcher [employer] EDLA Unique Mcgowan RN Kyler Pardo MD MD cha Roszak, Josh, PA PA jr8 Joo Samano RN RN jl7 Stacia Pan RN RN bs2 Airam Quiros RN RN ms4 Jose Luis Jain RN RN ch5 Corrections: (The following items were deleted from the chart) 01/19 17:25 17:22 PMHx: CHF; jlJared miranda7 01/20 00:51 01/19 23:01 jr8 mw
[2021-01-19] MEDS ORDERED: CIPROFLOXACIN 400mg IV 400 MG/200 ML BAG IV ONE (23:28)
[2021-01-19] MEDS ORDERED: METRONIDAZOLE 500mg IVPB 500 MG/100 ML BAG IV ONE (23:28)
[2021-01-19] MEDS ORDERED: MINERAL OIL 30 ML UCUP ONE (23:58)
--- NOTE | 2021-01-20 00:02 | P.HP ---
Certification for Inpatient Patient admitted to: Observation With expected LOS: <2 Midnights Patient will require the following post-hospital care: None Practitioner: I am a practitioner with admitting privileges, knowledge of patient current condition, hospital course, and medical plan of care. Services: Services provided to patient in accordance with Admission requirements found in Title 42 Section 412.3 of the Code of Federal Regulations <Sanya Chapman Maxine - Last Filed: 01/19/21 23:56> Patient History Date of Service: 01/19/21 Primary Care Provider: Yany Reason for admission: possible SBO History of Present Illness: Ms. Aleman is a 60 yo F with chronic pancreatitis and biliary cirrhosis, HTN and arthritis who presents with four days of diffuse abdominal pain as well as nausea, vomiting and diarrhea. She reports night sweats and chills and anorexia. Symptoms worth with eating. She has been unable to hold any fluids down as well as her medications. Symptoms mildly improved with morphine. She has had several flares of her pancreatitis in the past but she says that this pain feels different. Lipase today within normal limits. CT ABDOMEN IMPRESSION: Dilated mid small bowel containing fecalized bowel content. Small bowel proximal and distal to the involved loop normal in diame ter. Findings could reflect a focal ileus or enteritis. Early closed-loop mechanical small bowel obstruction from adhesions or internal hernia would be possible. No free air, abscess or surgically emergent finding. - Past Medical/Surgical History Diabetic: No -: HTN -: Chronic pancreatitis -: Chronic bile duct dysfunction, GI-Dr. Stiles([facility]) -: Chronic pain syndrome, Pain management -: GERD -: Insomnia -: Obesity -: Anemia -: Fatty liver/cirrhosis -: anxiety -: arthritis -: CHF -: Cholecystectomy -: Bile duct stent with removal -: Tubal ligation -: Rt. Breast cysr removal Psychosocial/ Personal History: - Family History Mother -: Hypertension, Diabetes Brother -: Diabetes, Liver disease Notes: both had liver cancer Father -: Diabetes Notes: no problems - Social History Smoking Status: Never smoker Alcohol use: No CD- Drugs: No Caffeine use: No Place of Residence: Home <AriSanya Goodman - Last Filed: 01/19/21 23:56> Date of Service: 01/19/21 <Philip Astorga - Last Filed: 01/21/21 09:44> Allergies codeine Allergy (Verified 01/20/21 01:28) Rash Home Medications: Gabapentin 300 mg PO BID 01/20/21 Hydrocodone 7.5/APAP 325 [[place] 7.5/325 mg*] 7.5 mg PO BID PRN 01/20/21 Losartan Potassium 100 mg PO DAILY 01/20/21 Tizanidine [Zanaflex*] 4 mg PO BID 01/20/21 Trazodone HCl [Desyrel] 200 mg PO BID 01/20/21 Review of Systems General: Chills, Sweats Gastrointestinal: Nausea, Vomiting, Abdominal Pain, Diarrhea <Sanya Chapman - Last Filed: 01/19/21 23:56> Physical Examination - Physical Exam General: Alert, In no apparent distress HEENT: Atraumatic, PERRLA, Mucous membr. moist/pink, EOMI, Sclerae nonicteric Neck: Supple, 2+ carotid pulse no bruit, No LAD, Without JVD or thyroid abnormality Respiratory: Clear to auscultation bilaterally, Normal air movement Cardiovascular: Regular rate/rhythm, Normal S1 S2 Gastrointestinal: Normal bowel sounds, No ascites, No masses, No rebound, No guarding, Tenderness Musculoskeletal: No tenderness Integumentary: No rashes Neurological: Normal speech, Normal strength at 5/5 x4 extr, Normal tone, Normal affect Lymphatics: No axilla or inguinal lymphadenopathy - Studies Laboratory Data (last 24 hrs) 01/19/21 18:06: WBC 6.20, Hgb 10.8 L, Hct 32.4 L, Plt Count 215 01/19/21 18:06: Sodium 137, Potassium 4.8, BUN 11, Creatinine 0.61, Glucose 101, Total Bilirubin 1.0, AST 88 H, ALT 92 H, Alkaline Phosphatase 673 H, Lipase 205 <Sanya Chapman - Last Filed: 01/19/21 23:56> Assessment and Plan - Problems (Diagnosis) (1) Abdominal pain Onset Date: 03/27/16 Current Visit: No Status: Acute Qualifiers: Abdominal location: generalized Qualified Code(s): R10.84 - Generalized abdominal pain (2) Biliary cirrhosis Onset Date: 12/01/15 Current Visit: No Status: Chronic (3) Nausea & vomiting Onset Date: 01/15/14 Current Visit: No Status: Acute Qualifiers: Vomiting type: unspecified Vomiting Intractability: unspecified Qualified Code(s): R11.2 - Nausea with vomiting, unspecified (4) Chronic pancreatitis Current Visit: No Status: Chronic (5) HTN (hypertension) Onset Date: 08/30/14 Current Visit: No Status: Chronic Qualifiers: Hypertension type: primary hypertension Qualified Code(s): I10 - Essential (primary) hypertension - Plan clear liquid diet, continue IVF hydration and IV antibiotics pain management as needed BP stable, continue to monitor anemia panel pending will repeat abdominal imaging in the AM, and consult general surgery DVT ppx Discharge Plan: Home Plan to discharge in: 24 Hours - Advance Directives Does patient have a Living Will: No Does patient have a Durable POA for Healthcare: No - Code Status/Comfort Care Code Status Assessed: Yes (full code ) Critical Care: No Time Spent Managing Pts Care (In Minutes): 70 <Sanya Chapman - Last Filed: 01/19/21 23:56> - Problems (Diagnosis) (1) SBO (small bowel obstruction) Current Visit: Yes Status: Acute (2) GERD (gastroesophageal reflux disease) Onset Date: 01/15/14 Current Visit: No Status: Acute (3) Chronic pancreatitis Current Visit: No Status: Chronic Qualifiers: (4) Cirrhosis of liver Onset Date: 08/19/14 Current Visit: No Status: Chronic Qualifiers: Hepatic cirrhosis type: unspecified hepatic cirrhosis Ascites presence: without ascites Qualified Code(s): K74.60 - Unspecified cirrhosis of liver (5) Depression with anxiety Onset Date: 08/30/14 Current Visit: No Status: Chronic (6) HTN (hypertension) Onset Date: 08/30/14 Current Visit: No Status: Chronic Qualifiers: Hypertension type: primary hypertension Qualified Code(s): I10 - Essential (primary) hypertension <Philip Astorga - Last Filed: 01/21/21 09:44> Date of Service: 01/19/21 Subjective Agree with plan of care as mentioned above in HPI Review of Systems 10-point ROS is otherwise unremarkable Physical Examination - Vital Signs Reviewed - Physical Exam General: Alert, In no apparent distress, Oriented x3 Respiratory: Clear to auscultation bilaterally, Normal air movement Cardiovascular: Regular rate/rhythm, Normal S1 S2 Gastrointestinal: Normal bowel sounds, Distended, Tenderness Musculoskeletal: No clubbing, No swelling, No tenderness Neurological: Sensation intact, Cranial nerves 3-12 intact Assessment & Plan - Problems (Diagnosis) (1) SBO (small bowel obstruction) Current Visit: Yes Status: Acute (2) GERD (gastroesophageal reflux disease) Onset Date: 01/15/14 Current Visit: No Status: Acute (3) Chronic pancreatitis Current Visit: No Status: Chronic Qualifiers: (4) Cirrhosis of liver Onset Date: 08/19/14 Current Visit: No Status: Chronic Qualifiers: Hepatic cirrhosis type: unspecified hepatic cirrhosis Ascites presence: without ascites Qualified Code(s): K74.60 - Unspecified cirrhosis of liver (5) Depression with anxiety Onset Date: 08/30/14 Current Visit: No Status: Chronic (6) HTN (hypertension) Onset Date: 08/30/14 Current Visit: No Status: Chronic Qualifiers: Hypertension type: primary hypertension Qualified Code(s): I10 - Essential (primary) hypertension - Plan Continue with plan of care as mentioned below: 1. NPO 2. We may need to repeat abdominal film 3. Surgery consultation pending 4. NG tube 5. Monitor electrolytes 6. Resume home medications 7. GI and DVT prophylaxis <Philip Astorga - Last Filed: 01/21/21 09:44>
[2021-01-20 01:27] VITALS: BMI 37.1
[2021-01-20] MEDS: HYDRALAZINE HCL 20 MG/ML VIAL IV PRN ×2 (01:44→19:36)
[2021-01-20] MEDS: NA CHLORIDE 0.9% 1,000 ML IV SCH ×3 (01:44→21:08)
[2021-01-20] MEDS: MORPHINE 2 MG/ML SYR IV PRN ×4 (01:48→14:13)
[2021-01-20 05:33] LABS: Absolute Lymphocytes (CBC) 1.3 K/uL (0.7-4.9); Basophils % 0.5 % (0-1.3); Hematocrit 30.9 % (36.0-45.0); Lymphocytes % 21.7 % (15.3-44.8); MPV 8.1 fL (7.6-11.3); RBC Red Blood Cell Count 3.49 M/uL (3.86-4.86)
[2021-01-20 06:14] LABS: ALT/SGPT 76 U/L (12-78); AST/SGOT 65 U/L (15-37); Albumin 3.2 g/dL (3.4-5.0); Alkaline Phosphatase 582 U/L (45-117); BUN Blood Urea Nitrogen 9 mg/dL (7-18); Bicarbonate 25 mmol/L (21-32); Bilirubin Total 1.1 mg/dL (0.2-1.0); Ferritin 35.5 ng/mL (8-388); Folic Acid, (Folate) 14.8 ng/mL (3.1-17.5); Glucose Level 97 mg/dL (74-106); Magnesium 1.7 mg/dL (1.8-2.4); Phosphorus 3.5 mg/dL (2.5-4.9); Potassium 3.7 mmol/L (3.5-5.1); Protein, Total 7.4 g/dL (6.4-8.2); Sodium Level 138 mmol/L (136-145); Transferrin 259 mg/dL (200-360)
[2021-01-20] MEDS ORDERED: MAGNESIUM SULFATE 1 gm IVPB 1 GM/100 ML BAG IV ONE (08:00)
[2021-01-20] MEDS ORDERED: INFLUENZA VACCINE (for 6+ mo) 0.5 ML DOSE IMVAC ONE (09:00)
[2021-01-20] MEDS ORDERED: POTASSIUM CL SA 10 MEQ TAB PO ONE (09:00)
[2021-01-20] MEDS: ONDANSETRON 4 MG/2 ML VIAL IV PRN ×3 (09:35→19:37)
[2021-01-20] MEDS: METRONIDAZOLE 500mg IVPB 500 MG/100 ML BAG IV SCH ×2 (09:36→17:46)
[2021-01-20] MEDS: ACETAMINOPHEN 500 MG TAB PO PRN ×3 (09:49→23:58)
[2021-01-20] MEDS ORDERED: CIPROFLOXACIN 400mg IV 400 MG/200 ML BAG IV SCH (12:00)
[2021-01-20] MEDS: HYDROMORPHONE HCL 1 MG/ML INJ IV PRN ×3 (16:32→23:58)
[2021-01-20] MEDS: CIPROFLOXACIN 400mg IV 400 MG/200 ML BAG IV SCH (18:47)
[2021-01-20] MEDS ORDERED: TIZANIDINE 4 MG TABLET PO PRN (20:48)
[2021-01-20] MEDS: TRAZODONE 50 MG TABLET PO SCH (21:02)
[2021-01-20] MEDS: LOSARTAN POTASSIUM 50 MG TABLET PO SCH (21:02)
[2021-01-20] MEDS: LORAZEPAM 0.5 MG TABLET PO PRN (21:03)
[2021-01-20] MEDS: GABAPENTIN 300 MG CAP PO SCH (21:03)
[2021-01-21] MEDS: METRONIDAZOLE 500mg IVPB 500 MG/100 ML BAG IV SCH ×3 (01:30→17:46)
[2021-01-21] MEDS: HYDROMORPHONE HCL 1 MG/ML INJ IV PRN ×5 (05:14→22:11)
[2021-01-21] MEDS: CIPROFLOXACIN 400mg IV 400 MG/200 ML BAG IV SCH ×2 (05:15→17:46)
[2021-01-21] MEDS: NA CHLORIDE 0.9% 1,000 ML IV SCH ×3 (06:29→14:37)
[2021-01-21 06:46] LABS: BUN Blood Urea Nitrogen 6 mg/dL (7-18); Bicarbonate 26 mmol/L (21-32); Glucose Level 120 mg/dL (74-106); Magnesium 2.2 mg/dL (1.8-2.4); Sodium Level 138 mmol/L (136-145)
[2021-01-21] MEDS: ONDANSETRON 4 MG/2 ML VIAL IV PRN ×2 (08:55→15:06)
[2021-01-21] MEDS: LOSARTAN POTASSIUM 50 MG TABLET PO SCH (08:58)
[2021-01-21] MEDS: TRAZODONE 50 MG TABLET PO SCH ×2 (08:59→20:31)
[2021-01-21] MEDS: GABAPENTIN 300 MG CAP PO SCH ×2 (08:59→20:31)
[2021-01-21] MEDS: LORAZEPAM 0.5 MG TABLET PO PRN ×2 (09:11→22:17)
--- NOTE | 2021-01-21 09:42 | P.PN ---
Subjective Date of Service: 01/20/21 Subjective: No new changes, No C/O voiced, Improving Review of Systems 10-point ROS is otherwise unremarkable Physical Examination - Vital Signs Temperature: 97.3 F Blood Pressure: 161/93 Pulse: 72 Respirations: 16 Pulse Ox (%): 98 - Physical Exam General: Alert, In no apparent distress, Oriented x3 Respiratory: Clear to auscultation bilaterally, Normal air movement Cardiovascular: Regular rate/rhythm, Normal S1 S2 Gastrointestinal: Normal bowel sounds, Distended, Tenderness Musculoskeletal: No clubbing, No swelling, No tenderness Neurological: Sensation intact, Cranial nerves 3-12 intact Lymphatics: No axilla or inguinal lymphadenopathy - Studies Medications List Reviewed: Yes Assessment & Plan - Problems (Diagnosis) (1) SBO (small bowel obstruction) Current Visit: Yes Status: Acute (2) GERD (gastroesophageal reflux disease) Onset Date: 01/15/14 Current Visit: No Status: Acute (3) Chronic pancreatitis Current Visit: No Status: Chronic Qualifiers: (4) Cirrhosis of liver Onset Date: 08/19/14 Current Visit: No Status: Chronic Qualifiers: Hepatic cirrhosis type: unspecified hepatic cirrhosis Ascites presence: without ascites Qualified Code(s): K74.60 - Unspecified cirrhosis of liver (5) Depression with anxiety Onset Date: 08/30/14 Current Visit: No Status: Chronic (6) HTN (hypertension) Onset Date: 08/30/14 Current Visit: No Status: Chronic Qualifiers: Hypertension type: primary hypertension Qualified Code(s): I10 - Essential (primary) hypertension - Plan Plan: 1. NPO 2. Repeat abdominal film 3. Surgery consultation 4. If persistent nausea and vomiting and an NG tube 5. Monitor electrolytes 6. Resume home medications 7. GI and DVT prophylaxis Discharge Plan: Home Plan to discharge in: Greater than 2 days - Advance Directives Does patient have a Living Will: No Does patient have a Durable POA for Healthcare: No - Code Status/Comfort Care Code Status Assessed: Yes Code Status: Full Code Critical Care: No Time Spent Managing PTS Care (In Minutes): 35
--- NOTE | 2021-01-21 09:46 | P.PN ---
Date of Service: 01/21/21 Subjective Patient with some improvement. Review of Systems 10-point ROS is otherwise unremarkable Physical Examination - Vital Signs Reviewed - Physical Exam General: Alert, In no apparent distress, Oriented x3 Respiratory: Clear to auscultation bilaterally, Normal air movement Cardiovascular: Regular rate/rhythm, Normal S1 S2 Gastrointestinal: Normal bowel sounds, Distended, Tenderness Musculoskeletal: No clubbing, No swelling, No tenderness Neurological: Sensation intact, Cranial nerves 3-12 intact Assessment & Plan - Problems (Diagnosis) (1) SBO (small bowel obstruction) Current Visit: Yes Status: Acute (2) GERD (gastroesophageal reflux disease) Onset Date: 01/15/14 Current Visit: No Status: Acute (3) Chronic pancreatitis Current Visit: No Status: Chronic Qualifiers: (4) Cirrhosis of liver Onset Date: 08/19/14 Current Visit: No Status: Chronic Qualifiers: Hepatic cirrhosis type: unspecified hepatic cirrhosis Ascites presence: without ascites Qualified Code(s): K74.60 - Unspecified cirrhosis of liver (5) Depression with anxiety Onset Date: 08/30/14 Current Visit: No Status: Chronic (6) HTN (hypertension) Onset Date: 08/30/14 Current Visit: No Status: Chronic Qualifiers: Hypertension type: primary hypertension Qualified Code(s): I10 - Essential (primary) hypertension - Plan Continue with plan of care as mentioned below: 1. May start clear liquid diet today pending surgery evaluation today 2. Repeat abdominal film is pending 3. Monitor labs closely Monitor electrolytes 4. Resume home medications 5. GI and DVT prophylaxis
--- NOTE | 2021-01-21 12:13 | RAD REPORT ---
EXAM DESCRIPTION: RAD - Abdomen Single View - 01/21/2021 6:42 am CLINICAL HISTORY: KUB Pain COMPARISON: Abdomen Pelvis W Contrast dated 01/19/2021 FINDINGS: The bowel gas pattern is non-obstructive. No evidence of free air or pneumatosis. No suspi cious calcifications. No significant bony findings. Cholecystectomy clips. IMPRESSION: Negative examination.
[2021-01-21] MEDS: ACETAMINOPHEN 500 MG TAB PO PRN ×2 (12:33→17:47)
[2021-01-21] MEDS ORDERED: MINERAL OIL 30 ML UCUP PO ONE (16:00)
[2021-01-21] MEDS: PROMETHAZINE INJ 25 MG/ML AMP IV PRN (22:11)
[2021-01-22] MEDS: METRONIDAZOLE 500mg IVPB 500 MG/100 ML BAG IV SCH ×3 (00:29→17:01)
[2021-01-22] MEDS: HYDROMORPHONE HCL 1 MG/ML INJ IV PRN ×5 (03:55→20:32)
[2021-01-22] MEDS: NA CHLORIDE 0.9% 1,000 ML IV SCH ×3 (03:56→20:43)
[2021-01-22] MEDS: CIPROFLOXACIN 400mg IV 400 MG/200 ML BAG IV SCH ×2 (05:31→18:00)
[2021-01-22 06:47] LABS: Absolute Lymphocytes (CBC) 0.6 K/uL (0.7-4.9); Hematocrit 30.9 % (36.0-45.0); Lymphocytes % 18.4 % (15.3-44.8); RBC Red Blood Cell Count 3.47 M/uL (3.86-4.86)
[2021-01-22 06:59] LABS: ALT/SGPT 89 U/L (12-78); AST/SGOT 96 U/L (15-37); Albumin 3.1 g/dL (3.4-5.0); Alkaline Phosphatase 598 U/L (45-117); BUN Blood Urea Nitrogen 5 mg/dL (7-18); Bicarbonate 24 mmol/L (21-32); Bilirubin Total 1.1 mg/dL (0.2-1.0); Glucose Level 145 mg/dL (74-106); Potassium 3.8 mmol/L (3.5-5.1); Protein, Total 7.1 g/dL (6.4-8.2); Sodium Level 139 mmol/L (136-145)
[2021-01-22] MEDS: TRAZODONE 50 MG TABLET PO SCH ×2 (07:35→20:44)
[2021-01-22] MEDS: PROMETHAZINE INJ 25 MG/ML AMP IV PRN ×4 (07:52→20:32)
[2021-01-22] MEDS: LORAZEPAM 0.5 MG TABLET PO PRN ×2 (08:25→21:28)
[2021-01-22] MEDS: LOSARTAN POTASSIUM 50 MG TABLET PO SCH (09:33)
[2021-01-22] MEDS: GABAPENTIN 300 MG CAP PO SCH ×2 (09:34→20:44)
[2021-01-22] MEDS ORDERED: clonazePAM 1 MG TAB PO ONE (12:00)
[2021-01-22] MEDS ORDERED: MINERAL OIL ENEMA 135 ML BTL PR SCH (17:00)
--- NOTE | 2021-01-22 18:17 | RAD REPORT ---
EXAM DESCRIPTION: RAD - Abdomen 1 View (KUB) - 01/22/2021 5:23 pm CLINICAL HISTORY: Abdominal Pain COMPARISON: Abdomen Single View dated 01/21/2021; Abdomen Pelvis W Contrast dated 01/19/2021 FINDINGS: Colon is not dilated. Prominent bowel loop in the mid abdomen is probably the enlarged sma ll bowel loops seen on the CT study. Pattern is stable. No free air or pneumatosis. Cholecystectomy c lips again noted. No suspicious calcifications. IMPRESSION: Stable KUB examination. Prominent small bowel loop remains in the mid abdomen.
[2021-01-23] MEDS: METRONIDAZOLE 500mg IVPB 500 MG/100 ML BAG IV SCH ×2 (01:11→08:27)
[2021-01-23] MEDS: HYDROMORPHONE HCL 1 MG/ML INJ IV PRN ×4 (01:46→12:45)
[2021-01-23] MEDS: PROMETHAZINE INJ 25 MG/ML AMP IV PRN ×4 (01:47→12:45)
--- NOTE | 2021-01-23 01:55 | P.PN ---
Date of Service: 01/22/21 Subjective The patient was doing well this morning. However, she stated that patient had constipation. She requested enema. We have given her enema with no relief. She started having pain. She states she is not ready to go home. CT scan is pending. She did have a couple of small bowel movements. However, she states that she is not improving. Review of Systems 10-point ROS is otherwise unremarkable Physical Examination - Vital Signs Reviewed - Physical Exam General: Alert, In no apparent distress, Oriented x3 Respiratory: Clear to auscultation bilaterally, Normal air movement Cardiovascular: Regular rate/rhythm, Normal S1 S2 Gastrointestinal: Normal bowel sounds, Distended, Tenderness Musculoskeletal: No clubbing, No swelling, No tenderness Neurological: Sensation intact, Cranial nerves 3-12 intact Assessment & Plan - Problems (Diagnosis) (1) SBO (small bowel obstruction) Current Visit: Yes Status: Acute (2) GERD (gastroesophageal reflux disease) Onset Date: 01/15/14 Current Visit: No Status: Acute (3) Chronic pancreatitis Current Visit: No Status: Chronic (4) Cirrhosis of liver Onset Date: 08/19/14 Current Visit: No Status: Chronic Qualifiers: Hepatic cirrhosis type: unspecified hepatic cirrhosis Ascites presence: without ascites Qualified Code(s): K74.60 - Unspecified cirrhosis of liver (5) Depression with anxiety Onset Date: 08/30/14 Current Visit: No Status: Chronic (6) HTN (hypertension) Onset Date: 08/30/14 Current Visit: No Status: Chronic Qualifiers: Hypertension type: primary hypertension Qualified Code(s): I10 - Essential (primary) hypertension - Plan Continue with plan of care as mentioned below: 1. NPO once again 2. Repeat CT scan in the morning 3. Repeat labs in the morning 4. Resume home medications 5. GI and DVT prophylaxis
[2021-01-23] MEDS: CIPROFLOXACIN 400mg IV 400 MG/200 ML BAG IV SCH (05:24)
[2021-01-23] MEDS ORDERED: METOPROLOL TAR 25 MG TAB PO SCH (06:00)
[2021-01-23 06:11] LABS: Absolute Lymphocytes (CBC) 1.1 K/uL (0.7-4.9); Basophils % 1.3 % (0-1.3); Hematocrit 31.5 % (36.0-45.0); Lymphocytes % 22.7 % (15.3-44.8); MPV 7.8 fL (7.6-11.3); RBC Red Blood Cell Count 3.54 M/uL (3.86-4.86)
[2021-01-23 06:24] LABS: Magnesium 1.9 mg/dL (1.8-2.4)
[2021-01-23 06:28] LABS: ALT/SGPT 116 U/L (12-78); AST/SGOT 134 U/L (15-37); Albumin 3.2 g/dL (3.4-5.0); Alkaline Phosphatase 654 U/L (45-117); BUN Blood Urea Nitrogen 7 mg/dL (7-18); Bicarbonate 27 mmol/L (21-32); Bilirubin Total 1.2 mg/dL (0.2-1.0); Glucose Level 111 mg/dL (74-106); Magnesium 1.8 mg/dL (1.8-2.4); Potassium 3.7 mmol/L (3.5-5.1); Protein, Total 7.3 g/dL (6.4-8.2); Sodium Level 140 mmol/L (136-145)
[2021-01-23] MEDS: NA CHLORIDE 0.9% 1,000 ML IV SCH (08:27)
[2021-01-23] MEDS: LOSARTAN POTASSIUM 50 MG TABLET PO SCH (08:28)
[2021-01-23] MEDS: TRAZODONE 50 MG TABLET PO SCH (08:28)
[2021-01-23] MEDS: GABAPENTIN 300 MG CAP PO SCH (08:29)
[2021-01-23] MEDS: LORAZEPAM 0.5 MG TABLET PO PRN (08:38)
[2021-01-23] MEDS ORDERED: POTASSIUM CL SA 10 MEQ TAB PO ONE (09:00)
--- NOTE | 2021-01-23 09:57 | RAD REPORT ---
EXAM DESCRIPTION: CT - Abdomen Pelvis W Contrast - 01/23/2021 9:17 am CLINICAL HISTORY: Abdominal pain; ileus COMPARISON: Abdomen Pelvis W Contrast dated 01/19/2021; Abdomen Pelvis W Contrast dated 10/29/2020 ; Abdomen Pelvis W Contrast dated 03/23/2020; Abdomen Pelvis W Contrast dated 08/17/2018 TECHNIQUE: Biphasic, helical CT imaging of the abdomen and pelvis was performed following 100 ml non -ionic IV contrast. Oral contrast was given. All CT scans are performed using dose optimization technique as appropriate and may include automated exposure control or mA/KV adjustment according to patient size. FINDINGS: No suspicious findings in the lung bases. The liver, spleen, and pancreas show no suspicious findings. Gallbladder is absent. No biliary tree d ilatation. Pneumobilia is present. This is a stable appearance. Symmetric renal function is seen with no hydronephrosis or suspicious renal mass. No pyelonephritis o r acute parenchymal process. No bladder abnormalities. No adrenal abnormalities. Uterus and ovaries s how no suspicious findings. No gastric dilatation or gastric wall thickening. No small bowel abnormality identified. Appendix is not identified. Patient appears to have appendectomy clips. Oral CT contrast has reached the mid myers sverse colon. There is a moderate stool volume present in the left-side of the colon. Sigmoid is mild ly redundant with minimal diverticulosis. At the tip of the cecum colon wall is thickened and nodular. Review of serial imaging shows that the patient has had some wall thickening in this region possibly related to appendicitis or appendectomy procedure. On the current study this is slightly more thickened and nodular in appearance. This CT fi nding is usually due to incomplete distension accentuating wall thickness and nodularity. However, fi nding is of sufficient concern to warrant follow-up colonoscopy. Direct visualization of the cecum wi ll likely be needed. Barium enema examination may not be able to distinguish new mucosal nodularity f rom the chronic wall thickening that has been seen. No hernia, mass or bulky lymphadenopathy. No suspicious bony findings. IMPRESSION: No bowel obstruction or emergent finding. Ileus is not suspected. The small bowel loops are unremarkable and oral CT contrast has reached the mid transverse colon. Tip of the cecum as a thickened, nodular appearance that is more prominent than seen on the multiple comparison studies. Finding is of sufficient concern to warrant follow-up outpatient colonoscopy for direct visualization to exclude mass of the cecum.
[2021-01-23 10:16] VITALS: O2SAT 100
--- NOTE | 2021-01-23 12:20 | P.DS ---
Admission Date: 01/19/21 Discharge Date: 01/23/21 Primary Care Provider: Dr. Slade Disposition: ROUTINE DISCHARGE Discharge Condition: GOOD Reason for Admission: possible SBO Consultations: Surgery-Dr. Vasquez Procedures: COVID: Negative CT scan: COMPARISON: <Comparisons> TECHNIQUE: Biphasic, helical CT imaging of the abdomen and pelvis was performed following 100 ml non-ionic IV contrast. No oral contrast administered. All CT scans are performed using dose optimization technique as appropriate and may include automated exposure control or mA/KV adjustment according to patient size. FINDINGS: No suspicious findings in the lung bases. No focal liver lesion. Attenuation is borderline to mildly fatty infiltrated. No portal vein abnormality. No splenic abnormality seen. No pancreas or peripancreatic abnormality. Gallbladder is absent. No biliary tree dilatation. Pneumobilia is again noted. Symmetric renal function is seen with no hydronephrosis or suspicious renal mass. No pyelonephritis or acute parenchymal process. No bladder abnormalities. No adrenal abnormalities. No gastric dilatation gastric wall thickening. Duodenum is unremarkable. Dilated small bowel loop in the mid abdomen is present with fecalized bowel content. Small bowel proximal and distal to the involved loop is normal in diameter. Terminal ileum is unremarkable. Appendectomy clips are seen. Moderate stool volume is present in tortuous and redundant colon. Primary colon process is not seen. No uterine or ovarian abnormality. No free air, free fluid or inflammatory stranding. No hernia, mass or bulky lymphadenopathy. No suspicious bony findings. IMPRESSION: Dilated mid small bowel containing fecalized bowel content. Small bowel proximal and distal to the involved loop normal in diameter. Findings could reflect a focal ileus or enteritis. Early closed-loop mechanical small bowel obstruction from adhesions or internal hernia would be possible. No free air, abscess or surgically emergent finding. Follow up CT scan: COMPARISON: Abdomen Pelvis W Contrast dated 01/19/2021; Abdomen Pelvis W C ontrast dated 10/29/2020; Abdomen Pelvis W Contrast dated 03/23/2020; Abdomen Pelvis W Contrast dated 08/17/2018 TECHNIQUE: Biphasic, helical CT imaging of the abdomen and pelvis was performed following 100 ml non-ionic IV contrast. Oral contrast was given. All CT scans are performed using dose optimization technique as appropriate and may include automated exposure control or mA/KV adjustment according to patient size. FINDINGS: No suspicious findings in the lung bases. The liver, spleen, and pancreas show no suspicious findings. Gallbladder is absent. No biliary tree dilatation. Pneumobilia is present. This is a stable appearance. Symmetric renal function is seen with no hydronephrosis or suspicious renal mass. No pyelonephritis or acute parenchymal process. No bladder abnormalities. No adrenal abnormalities. Uterus and ovaries show no suspicious findings. No gastric dilatation or gastric wall thickening. No small bowel abnormality identified. Appendix is not identified. Patient appears to have appendectomy clips. Oral CT contrast has reached the mid transverse colon. There is a moderate stool volume present in the left-side of the colon. Sigmoid is mildly redundant with minimal diverticulosis. At the tip of the cecum colon wall is thickened and nodular. Review of serial imaging shows that the patient has had some wall thickening in this region possibly related to appendicitis or appendectomy procedure. On the current study this is slightly more thickened and nodular in appearance. This CT finding is usually due to incomplete distension accentuating wall thickness and nodularity. However, finding is of sufficient concern to warrant follow-up colonoscopy. Direct visualization of the cecum will likely be needed. Barium enema examination may not be able to distinguish new mucosal nodularity from the chronic wall thickening that has been seen. No hernia, mass or bulky lymphadenopathy. No suspicious bony findings. IMPRESSION: No bowel obstruction or emergent finding. Ileus is not suspected. The small bowel loops are unremarkable and oral CT contrast has reached the mid transverse colon. Tip of the cecum as a thickened, nodular appearance that is more prominent than seen on the multiple comparison studies. Finding is of sufficient concern to warrant follow-up outpatient colonoscopy for direct visualization to exclude mass of the cecum. Medical problem list: Abdominal pain secondary to small bowel obstruction Hypertension Depression with anxiety Chronic pain Brief History of Present Illness: 60-year-old female with history of chronic pancreatitis, biliary cirrhosis, hypertension and arthritis. Patient presented with 4 days of diffuse abdominal pain, nausea and vomiting. CT scan revealed small bowel obstruction. Patient admitted for treatment. Hospital Course: Patient presented with abdominal pain secondary to small bowel obstruction. Patient with history of chronic pancreatitis and biliary cirrhosis. Patient was seen and evaluated by surgery. No surgical invention was required. Her symptoms resolved. Patient given enema with improvement. At discharge patient has had bowel movement and passage of gas. Repeat CT scan shows no evidence of ileus or small bowel obstruction. Recommend follow-up with PCP in 1 week to follow-up hospitalization. Patient should follow-up with her GI specialist within 1 week to follow-up hospitalization. Recommend colonoscopy in 4 to 6 weeks to further evaluate. Patient with hypertension. Additional medicationmetoprolol was required for better control. At discharge patient will continue with losartan 100 mg daily and metoprolol 50 mg 1 pill twice daily. Recommend to maintain blood pressure l ess than 130/80. If blood pressure remains above 140/90 further adjustment may be required. This can be done with the help of her PCP. Patient with depression with anxiety. At discharge she will continue with her medications including trazodone. A limited supply of anxiety medication provided. Patient with chronic pain. At discharge she will continue with her medications including gabapentin, Zanaflex, and hydrocodone. Recommend follow-up with her pain management physician to further address Vital Signs/Physical Exam: Temp Pulse Resp BP Pulse Ox 97.6 F 66 18 153/112 H 100 01/23/21 08:00 01/23/21 08:00 01/23/21 08:58 01/23/21 08:00 01/23/21 08:00 General: Alert, In no apparent distress, Oriented x3, Cooperative HEENT: Atraumatic Neck: Supple Respiratory: Clear to auscultation bilaterally, Normal air movement Cardiovascular: Normal pulses, Regular rate/rhythm Gastrointestinal: Normal bowel sounds, No ascites, No tenderness, No masses, No rebound, No guarding Musculoskeletal: No erythema, No tenderness, No warmth Integumentary: No tenderness/swelling Neurological: Normal speech, Normal strength at 5/5 x4 extr, Normal tone Laboratory Data at Discharge: WBC 4.80 K/uL (4.3-10.9) D 01/23/21 05:57 Hgb 10.4 g/dL (12.0-15.0) L 01/23/21 05:57 Hct 31.5 % (36.0-45.0) L 01/23/21 05:57 Plt Count 216 K/uL (152-406) 01/23/21 05:57 Sodium 140 mmol/L (136-145) 01/23/21 05:57 Potassium 3.7 mmol/L (3.5-5.1) 01/23/21 05:57 BUN 7 mg/dL (7-18) 01/23/21 05:57 Creatinine 0.56 mg/dL (0.55-1.3) 01/23/21 05:57 Glucose 111 mg/dL (74-106) H 01/23/21 05:57 Phosphorus 3.5 mg/dL (2.5-4.9) 01/20/21 05:04 Magnesium 1.8 mg/dL (1.8-2.4) 01/23/21 05:57 Magnesium 1.9 mg/dL (1.8-2.4) 01/23/21 05:57 Total Bilirubin 1.2 mg/dL (0.2-1.0) H 01/23/21 05:57 AST 134 U/L (15-37) H 01/23/21 05:57 ALT 116 U/L (12-78) H 01/23/21 05:57 Alkaline Phosphatase 654 U/L (45-117) H 01/23/21 05:57 Lipase 108 U/L (73-393) 01/23/21 05:57 Home Medications: Gabapentin 300 mg PO BID 01/20/21 Hydrocodone 7.5/APAP 325 [[place] 7.5/325 mg*] 7.5 mg PO BID PRN 01/20/21 Losartan Potassium 100 mg PO DAILY 01/20/21 Tizanidine [Zanaflex*] 4 mg PO BID 01/20/21 Trazodone HCl [Desyrel] 200 mg PO BID 01/20/21 LORazepam [Ativan*] 0.5 mg PO Q8H PRN #30 tab 01/22/21 Linaclotide [Linzess] 145 mcg PO DAILY #30 capsule 01/22/21 Metoprolol Tartrate [Lopressor*] 50 mg PO BID #60 tab 01/23/21 New Medications: LORazepam [Ativan*] 0.5 mg PO Q8H PRN #30 tab PRN Reason: Anxiety Linaclotide [Linzess] 145 mcg PO DAILY #30 capsule Metoprolol Tartrate [Lopressor*] 50 mg PO BID #60 tab Physician Discharge Instructions: Patient presented with abdominal pain secondary to small bowel obstruction. Patient with history of chronic pancreatitis and biliary cirrhosis. Patient was seen and evaluated by surgery. No surgical invention was required. Her symptoms resolved. Patient given enema with improvement. At discharge patient has had bowel movement and passage of gas. Repeat CT scan shows no evidence of ileus or small bowel obstruction. Recommend follow-up with PCP in 1 week to follow-up hospitalization. Patient should follow-up with her GI specialist within 1 week to follow-up hospitalization. Recommend colonoscopy in 4 to 6 weeks to further evaluate. Patient with hypertension. Additional medicationmetoprolol was required for better control. At discharge patient will continue with losartan 100 mg daily and metoprolol 50 mg 1 pill twice daily. Recommend to maintain blood pressure less than 130/80. If blood pressure remains above 140/90 further adjustment may be required. This can be done with the help of her PCP. Patient with depression with anxiety. At discharge she will continue with her medications including trazodone. A limited supply of anxiety medication provided. Patient with chronic pain. At discharge she will continue with her medications including gabapentin, Zanaflex, and hydrocodone. Recommend follow-up with her pain management physician to further address Diet: AHA Activity: Fall precautions Followup: Severiano Vasquez MD [ACTIVE - CAN ADMIT] - NONE,NONE [Primary Care Provider] - Time spent managing pt's care (in minutes): 55
[2021-01-23 13:31] VITALS: BP 132/81; TEMP 97.4
== END 2021-01-23 14:13 | disposition home or self-care (01) | DRG 389 ==
LOC: ER 17:05 → OBSVTOIN 23:09 → ERHOLD 23:09 → 2ND 01-20 01:00 → OBSVTOIN 01-20 18:08 → INTOOBSV 01-20 18:08
PROVIDERS: ADMIT Hospitalist; ATTEND Hospitalist
DX: K56.609 Unspecified intestinal obstruction, unspecified as to partial versus complete obstruction (principal); K86.1 Other chronic pancreatitis; I10 Essential (primary) hypertension; F41.8 Other specified anxiety disorders; G89.29 Other chronic pain; K74.60 Unspecified cirrhosis of liver; Z20.822 Contact with and (suspected) exposure to COVID-19
CPT/HCPCS: 36415; 74018; 74177; 80048; 80053; 80076; 81003; 82607; 82728; 82746; 83540; 83690; 83735; 84100; 84466; 84484; 85025; 93005; 94760; 99284; J0360; J0744; J1170; J2270; J2405; J2550; J3475; J7030; J7040; Q9967; U0003

== ENCOUNTER 2021-01-30 09:06 | Emergency (ER) | payer OTHER ==
[2021-01-30 09:39] LABS: Urine Blood Negative (Negative); Urine Glucose Negative (Negative); Urine Protein Negative (Negative)
[2021-01-30 10:11] LABS: Absolute Lymphocytes (CBC) 1.2 K/uL (0.7-4.9); Basophils % 0.7 % (0-1.3); MPV 8.3 fL (7.6-11.3); RBC Red Blood Cell Count 3.92 M/uL (3.86-4.86)
[2021-01-30] MEDS ORDERED: MEPERIDINE HCL 50 MG/ML ONE (10:22)
[2021-01-30] MEDS ORDERED: ONDANSETRON 4 MG/2 ML VIAL ONE (10:22)
[2021-01-30 10:36] LABS: Albumin 3.5 g/dL (3.4-5.0); Bilirubin Direct 0.8 mg/dL (0-0.2); Bilirubin Total 0.9 mg/dL (0.2-1.0); Potassium 4.1 mmol/L (3.5-5.1); Protein, Total 8.2 g/dL (6.4-8.2)
--- NOTE | 2021-01-30 11:36 | RAD REPORT ---
EXAM DESCRIPTION: CTAbdomen Pelvis Wo Contrast - 01/30/2021 10:56 am CLINICAL HISTORY: ABD PAIN COMPARISON: Abdomen Pelvis W Contrast dated 01/23/2021; Abdomen Pelvis W Contrast dated ; Abdomen Pelvis W Contrast dated 10/29/2020; Abdomen Pelvis W Contrast dated 09/05/2020 TECHNIQUE: CT of the abdomen and pelvis was performed. All CT scans are performed using dose optimization technique as appropriate and may include automated exposure control or mA/KV adjustment according to patient size. FINDINGS: Lower chest: No acute abnormality. Liver: Pneumobilia. No focal liver lesions. Biliary: No biliary ductal dilatation. Stomach: No significant focal abnormality. Duodenum: No significant focal abnormality. Pancreas: No significant abnormality. Spleen: No significant abnormality. Adrenal: No suspicious lesions. Kidney/ureter: No hydronephrosis. No renal calculi. Retroperitoneum: No retroperitoneal adenopathy. Vascular: No aneurysm. Bowel: No significant focal abnormality. Appendectomy. Peritoneum: No ascites or free air. Bladder: Grossly unremarkable. Reproductive: No adnexal masses. Bones: No acute fracture. Other: n/a IMPRESSION: No acute intra-abdominal or pelvic finding. No significant change from prior.
--- NOTE | 2021-01-30 12:09 | ER ---
Nurse's Notes [facility] Name: Yessenia Aleman Age: 60 yrs Sex: Female : 1960 Arrival Date: 01/30/2021 Time: 09:11 Bed 15 Private MD: Diagnosis: Upper abdominal pain, unspecified Presentation: 01/30 09:25 Chief complaint: Patient states: Upper abd pain for 2 days with some nausea. States she ll1 was admitted here last week for bowel obstruction. Coronavirus screen: Vaccine status: Patient reports receiving the 2nd dose of the covid vaccine. Client denies travel out of the [place] in the last 14 days. At this time, the client does not indicate any symptoms associated with coronavirus-19. Ebola Screen: Patient denies travel to an Ebola-affected area in the 21 days before illness onset. Initial Sepsis Screen: Does the patient meet any 2 criteria? No. Patient's initial sepsis screen is negative. Does the patient have a suspected source of infection? Yes: Acute abdominal pain. Risk Assessment: Do you want to hurt yourself or someone else? Patient reports no desire to harm self or others. Onset of symptoms was January 29, 2021. 09:25 Method Of Arrival: Ambulatory [facility] 09:25 Acuity: HOLLI 3 1 Triage Assessment: 13:13 General: Appears in no apparent distress. Behavior is calm, cooperative. [facility] Historical: - Allergies: 09:25 Codeine; ll1 - PMHx: 09:25 Anxiety; Arthritis; biliary chirrosis; biliary disease; Chronic Pancreatitis; 1 Cirrhosis; Hypertension; Pancreatitis; Pneumonia; - PSHx: 09:25 Appendectomy; Biliary stent removal; Biliary stents; Cholecystectomy; ll1 - Immunization history:: Client reports receiving the 2nd dose of the Covid vaccine. - Social history:: Smoking status: Patient denies any tobacco usage or history of. Screenin:10 Abuse screen: Denies threats or abuse. Denies injuries from another. Nutritional tc5 screening: No deficits noted. Nutritional screening: last oral intake yesterday,. Tuberculosis screening: No symptoms or risk factors identified. Fall Risk None identified. Assessment: 10:09 Pain: Complains of pain in right upper quadrant and left upper quadrant. GI: twisting tc5 upper abd pain 12/23, since yesterday, was admitted for obstruction last week. 11:00 Reassessment: No changes from previously documented assessment. Patient and/or family ll1 updated on plan of care and expected duration. Pain level reassessed. 12:00 Reassessment: No changes from previously documented assessment. Patient and/or family ll1 updated on plan of care and expected duration. Pain level reassessed. 13:00 Reassessment: No changes from previously documented assessment. Patient and/or family ll1 updated on plan of care and expected duration. Pain level reassessed. Patient is alert, oriented x 3, equal unlabored respirations, skin warm/dry/pink. 13:13 GI: Bowel sounds present X 4 quads. Abd is soft and non tender X 4 quads. ll1 Vital Signs: 09:25 Temp 98.5(TE); Weight 79.38 kg; Height 5 ft. 0 in. (152.40 cm); Pain 9/10; ll1 11:16 BP 138 / 97; Pulse 81; Resp 16; Pulse Ox 98% ; Pain 4/10; tc5 11:49 BP 124 / 79; Pulse 86; Resp 16; Pulse Ox 99% ; Pain 0/10; tc5 13:12 BP 141 / 91; Pulse 78; Resp 16; Pulse Ox 100% on R/A; ll1 09:25 Body Mass Index 34.18 (79.38 kg, 152.40 cm) ll1 ED Course: 09:11 Patient arrived in ED. mr 09:21 Jessica Cramer, RN is Primary Nurse. tc5 09:25 Arm band placed on Patient placed in an exam room, on a stretcher. ll1 09:27 Triage completed. ll1 09:32 Roderick Manriquez PA is PHCP. jr8 09:32 Naye Sheppard MD is Attending Physician. jr8 10:11 Inserted saline lock: 20 gauge in left forearm, using aseptic technique. Blood tc5 collected. 10:56 CT Abd/Pelvis - Without Contrast In Process Unspecified. EDMS 13:12 Patient has correct armband on for positive identification. Bed in low position. Call ll1 light in reach. Side rails up X 1. Pulse ox on. NIBP on. 13:12 No provider procedures requiring assistance completed. IV discontinued, intact, ll1 bleeding controlled, No redness/swelling at site. Pressure dressing applied. Administered Medications: 10:13 Drug: Demerol (meperidine) 50 mg Route: IVP; Site: left forearm; tc5 11:16 Follow up: BP 138 / 97; Pulse 81 bpm; Resp 16 bpm; Pulse Ox 98% ; Pain 4/10 Adult tc5 10:13 Drug: Zofran (Ondansetron) 4 mg Route: IVP; Site: left forearm; tc5 11:15 Follow up: Response: No adverse reaction tc5 12:26 Drug: Demerol (meperidine) 25 mg Route: IVP; Site: left forearm; tc5 13:13 Follow up: Response: No adverse reaction; RASS: Alert and Calm (0) ll1 Outcome: 12:08 Discharge ordered by . valerie 13:13 Discharged to home ambulatory. ll1 13:13 Condition: stable 13:13 Discharge instructions given to patient, Instructed on discharge instructions, follow up and referral plans. Demonstrated understanding of instructions, follow-up care. 13:14 Patient left the ED. 1 Signatures: Dispatcher [employer] [facility] Sheryl Lucia Josh, PA PA jr8 Cathryn Jordan, RN RN ll1 Jessica Cramer RN RN tc5
--- NOTE | 2021-01-30 12:09 | EDPHYS ---
Physician Documentation [facility] Name: Yessenia Aleman Age: 60 yrs Sex: Female : 1960 Arrival Date: 01/30/2021 Time: 09:11 Bed 15 Private MD: ED Physician Naye Sheppard HPI: 01/30 10:38 This 60 yrs old Female presents to ER via Ambulatory with complaints of jr8 Abdominal Pain. 10:38 Onset: The symptoms/episode began/occurred acutely, yesterday. The symptoms do not jr8 radiate. Associated signs and symptoms: Pertinent positives: nausea. The symptoms are described as stabbing. Modifying factors: The symptoms are alleviated by nothing, the symptoms are aggravated by nothing. Severity of pain: At its worst the pain was moderate in the emergency department the pain is unchanged. The patient has experienced similar episodes in the past, a few times. The patient has not recently seen a physician. This is a 60-year-old female patient that presented to the emergency room with upper abdominal pain and nausea. Patient stated that feels as if her bowels are twisting. Patient recently was admitted for similar pain and was found to have bowel obstruction versus ileus. Was sent home after several days. Patient stated that she did have mild improvement but that starting approximately 2 days ago started to have increased pain.. Historical: - Allergies: 09:25 Codeine; ll1 - PMHx: 09:25 Anxiety; Arthritis; biliary chirrosis; biliary disease; Chronic Pancreatitis; ll1 Cirrhosis; Hypertension; Pancreatitis; Pneumonia; - PSHx: 09:25 Appendectomy; Biliary stent removal; Biliary stents; Cholecystectomy; ll1 - Immunization history:: Client reports receiving the 2nd dose of the Covid vaccine. - Social history:: Smoking status: Patient denies any tobacco usage or history of. ROS: 10:38 Eyes: Negative for injury, pain, redness, and discharge, ENT: Negative for injury, jr8 pain, and discharge, Neck: Negative for injury, pain, and swelling, Cardiovascular: Negative for chest pain, palpitations, and edema, Respiratory: Negative for shortness of breath, cough, wheezing, and pleuritic chest pain, Back: Negative for injury and pain, MS/Extremity: Negative for injury and deformity, Skin: Negative for injury, rash, and discoloration, Neuro: Negative for headache, weakness, numbness, tingling, and seizure. 10:38 Abdomen/GI: Positive for abdominal pain, nausea. Exam: 10:38 Eyes: Pupils equal round and reactive to light, extra-ocular motions intact. Lids and jr8 lashes normal. Conjunctiva and sclera are non-icteric and not injected. Cornea within normal limits. Periorbital areas with no swelling, redness, or edema. ENT: Nares patent. No nasal discharge, no septal abnormalities noted. Tympanic membranes are normal and external auditory canals are clear. Oropharynx with no redness, swelling, or masses, exudates, or evidence of obstruction, uvula midline. Mucous membranes moist. Neck: Trachea midline, no thyromegaly or masses palpated, and no cervical lymphadenopathy. Supple, full range of motion without nuchal rigidity, or vertebral point tenderness. No Meningismus. Cardiovascular: Regular rate and rhythm with a normal S1 and S2. No gallops, murmurs, or rubs. Normal PMI, no JVD. No pulse deficits. Respiratory: Lungs have equal breath sounds bilaterally, clear to auscultation and percussion. No rales, rhonchi or wheezes noted. No increased work of breathing, no retractions or nasal flaring. Back: No spinal tenderness. No costovertebral tenderness. Full range of motion. Skin: Warm, dry with normal turgor. Normal color with no rashes, no lesions, and no evidence of cellulitis. MS/ Extremity: Pulses equal, no cyanosis. Neurovascular intact. Full, normal range of motion. Neuro: Awake and alert, GCS 15, oriented to person, place, time, and situation. Cranial nerves II-XII grossly intact. Motor strength 5/5 in all extremities. Sensory grossly intact. 10:38 Abdomen/GI: Inspection: obese Bowel sounds: active, all quadrants, Palpation: soft, in all quadrants, moderate abdominal tenderness, in the epigastric area, right upper quadrant and left upper quadrant, mass, is not appreciated, rebound tenderness, is not appreciated, voluntary guarding, is not appreciated, involuntary guarding, is not appreciated, no appreciated organomegaly, Indicators: McBurney's point is not tender, Arredondo's sign is negative, Rovsing's sign is negative. Vital Signs: 09:25 Temp 98.5(TE); Weight 79.38 kg; Height 5 ft. 0 in. (152.40 cm); Pain 9/10; ll1 11:16 BP 138 / 97; Pulse 81; Resp 16; Pulse Ox 98% ; Pain 4/10; tc5 11:49 BP 124 / 79; Pulse 86; Resp 16; Pulse Ox 99% ; Pain 0/10; tc5 13:12 BP 141 / 91; Pulse 78; Resp 16; Pulse Ox 100% on R/A; ll1 09:25 Body Mass Index 34.18 (79.38 kg, 152.40 cm) ll1 MDM: 09:32 Patient medically screened. jr8 12:05 Data reviewed: vital signs, nurses notes, lab test result(s), radiologic studies, CT jr8 scan. Data interpreted: Pulse oximetry: on room air is 99 %. Interpretation: normal. Counseling: I had a detailed discussion with the patient and/or guardian regarding: the historical points, exam findings, and any diagnostic results supporting the discharge/admit diagnosis, lab results, radiology results, the need for outpatient follow up, a tromper, to return to the emergency department if symptoms worsen or persist or if there are any questions or concerns that arise at home. Response to treatment: the patient's symptoms have mildly improved after treatment. ED course: Discussed with patient her labs and CT. No acute findings when comparing to her previous labs. CT of the abdomen pelvis did not show any acute findings. Patient's pain is feeling better. Patient hemodynamically stable and afebrile. Reexamine abdomen. No focal rigidity or guarding noted on reexamination. Overall feeling better. Recommended that she follow-up with her tromper and door patcher at this point. If she were to worsening point time or to run fever to come back for further evaluation. Patient good with plan at this time.. 01/30 09:32 Order name: Basic Metabolic Panel; Complete Time: 10:40 jr8 01/30 09:32 Order name: CBC with Diff; Complete Time: 10:36 jr8 01/30 09:32 Order name: Hepatic Function; Complete Time: 10:40 jr8 01/30 09:32 Order name: Lipase; Complete Time: 10:40 jr8 01/30 09:38 Order name: Urine Dipstick-Ancillary; Complete Time: 10:36 EDMS 01/30 10:41 Order name: CT Abd/Pelvis - Without Contrast; Complete Time: 11:49 jr8 01/30 09:32 Order name: IV Saline Lock; Complete Time: 10:09 jr8 01/30 09:32 Order name: Labs collected and sent; Complete Time: : jr8 Administered Medications: 10:13 Drug: Demerol (meperidine) 50 mg Route: IVP; Site: left forearm; tc5 11:16 Follow up: BP 138 / 97; Pulse 81 bpm; Resp 16 bpm; Pulse Ox 98% ; Pain 4/10 Adult tc5 10:13 Drug: Zofran (Ondansetron) 4 mg Route: IVP; Site: left forearm; tc5 11:15 Follow up: Response: No adverse reaction tc5 12:26 Drug: Demerol (meperidine) 25 mg Route: IVP; Site: left forearm; tc5 13:13 Follow up: Response: No adverse reaction; RASS: Alert and Calm (0) ll1 Disposition Summary: 01/30/21 12:08 Discharge Ordered Location: Home jr8 Problem: new jr8 Symptoms: have improved jr8 Condition: Stable jr8 Diagnosis - Upper abdominal pain, unspecified jr8 Followup: jr8 - With: Private Physician - When: 2 - 3 days - Reason: Recheck today's complaints, Continuance of care, Re-evaluation by your physician Discharge Instructions: - Discharge Summary Sheet jr8 - Abdominal Pain, Adult jr8 Forms: - Medication Reconciliation Form jr8 - Thank You Letter jr8 - Antibiotic Education jr8 - Prescription Opioid Use jr8 Addendum: 01/31/2021 14:20 Co-signature as Attending Physician, Naye Sheppard MD I agree with the assessment and s p3 plan of care. Signatures: Dispatcher [employer] EDMS Roderick Manriquez PA PA jr8 Cathryn Jordan RN RN ll1 Naye Sheppard MD MD sp3 Jessica Cramer RN RN tc5
[2021-01-30] MEDS ORDERED: MEPERIDINE HCL 25 MG/ML SYR ONE (12:47)
[2021-01-30 13:27] VITALS: TEMP 98.5
[2021-01-30 13:32] VITALS: BP 141/91; O2SAT 100
== END 2021-01-30 13:14 | disposition home or self-care (01) ==
LOC: ER 09:06
DX: R10.10 Upper abdominal pain, unspecified (principal); I10 Essential (primary) hypertension; Z88.5 Allergy status to narcotic agent
CPT/HCPCS: 85025; 80048; 36415; 80076; 81003; 83690; 74176; 96375; 96374; 99284; J2175 ×2; J2405

== ENCOUNTER 2021-03-17 10:30 | Emergency (ER) | payer OTHER ==
[2021-03-17 10:46] LABS: Urine Blood Negative (Negative); Urine Glucose Negative (Negative); Urine Protein Negative (Negative); Urine pH 5.5 (5.0-7.0)
[2021-03-17] MEDS ORDERED: ONDANSETRON 4 MG/2 ML VIAL ONE (10:49)
[2021-03-17] MEDS ORDERED: MEPERIDINE HCL 50 MG/ML ONE ×2 (10:49→12:31)
[2021-03-17] MEDS ORDERED: NA CHLORIDE 0.9% 1,000 ML ONE (10:50)
--- OUTSIDE RECORDS SUMMARY | 2021-03-17 10:59 | XMS REPORT | Continuity of Care Document ---
:1960 Author Organization [facility] t Address [address] [place] [address] Care Team Providers Name Role Phone PREZAS Primary Care Physician Unavailable Maxine GAMEZ Attending Clinician Unavailable ABBY PENNY Attending Clinician Unavailable LUIS ANTONIO NGUYỄN Attending Clinician Unavailable Obdulia WASHBURN Attending Clinician Unavailable WON FISHER Attending Clinician Unavailable Won Fisher MD Attending Clinician Christopher Baez DO Attending Clinician Doctor Unassigned, Name Attending Clinician Unavailable Jarocho MUSIC VIDEO PRODUCER Attending Clinician Manoj MUSIC VIDEO PRODUCER Attending Clinician MANOJ Attending Clinician Unavailable Karo KAN, A Attending Clinician Unavailable Obdulia Washburn MD Attending Clinician Zulema MUSIC VIDEO PRODUCER, F Attending Clinician James WEBSTER Attending Clinician Urban WEBSTER Attending Clinician Laurent WEBSTER M Attending Clinician Moraima ARREDONDO, R Attending Clinician Bia MARSH Attending Clinician Unavailable Maxine Gamez MD Attending Clinician Sydnie Llamas Attending Clinician Only, Test Attending Clinician Unavailable Sumit MA Attending Clinician Rayray Ayala MD Attending Clinician Pob, Lab Main Attending Clinician Unavailable Ron MUSIC VIDEO PRODUCER Attending Clinician Lab, Fam Pob I Attending Clinician Unavailable Kayy PERRIN Attending Clinician Guerline Slade Attending Clinician Maxine Grayson MD Attending Clinician Micaela WEBSTER Attending Clinician Mazin WEBSTER Attending Clinician Diego Grigsby MD Attending Clinician Sonya HALL, G Attending Clinician Maxine GRAYSON Attending Clinician Unavailable Singer CANALES Attending Clinician Attending Clinician Unavailable Obdulia Vasquez MD Attending Clinician Monika ORTIZ, S Attending Clinician Luis KAN Attending Clinician Edwardo WEBSTER Attending Clinician Maxim WEBSTER Attending Clinician DANIEL Mai Attending Clinician Unavailable Haley Cox Attending Clinician Unavailable PROVIDER, TEMP Attending Clinician Unavailable RADU Attending Clinician Unavailable To Attending Clinician Unavailable KRIS Attending Clinician Unavailable Bia CASTILLO Attending Clinician Unavailable Maxine GAMEZ Admitting Clinician Unavailable ABBY PENNY Admitting Clinician Unavailable LUIS ANTONIO NGUYỄN Admitting Clinician Unavailable WON FISHER Admitting Clinician Unavailable Urban WEBSTER Admitting Clinician Maxine Gamez MD Admitting Clinician Diego Grigsby MD Admitting Clinician Maxine GRAYSON Admitting Clinician Unavailable Admitting Clinician Unavailable Maxim WEBSTER Admitting Clinician Haley Cox Admitting Clinician Unavailable Payers Payer Name Policy Type Policy Number Effective Date Expiration Date S nasra MEDICARE PART A [id number] 2015 \\T\\ B 00:00:00 CIGNA II [id number] 2018 00:00:00 MEDICARE A B [id number] 2015 00:00:00 CIGNA [id number] 2018 HMO/POS/OPEN 00:00:00 ACCESS BCBS OS [id number] 2010 2020 POS/PPO/EPO 1 00:00:00 00:00:00 Advance Directives Directive Decision Effective Termination Comments Source Date Date Healthcare Agents on N/A [facility] ersity FileNameRelationshipHealthcare [facility] Agent Medical RelationshipCommunicationVictor Branch CarreThree Rivers HealthcarepouseHealth Care [phone] (Mobile) [email or web address] Condition Condition Condition Status Onset Resolution Last Treating Co mments Source Name Details Category Date Date Treatment Clinician Date 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 ity of cirrhosis [place] [facility] Cerebrovas Cerebrovas Disease Active 2019-04 U nivers cular cular 0-22 ity of accident accident 00:00: [place] (CVA) due (CVA) due 00 [facility] brandy 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 Arthritis Arthritis Disease Active 2019-04 Uni vers 0-21 ity of 00:00: [place] [facility] Toxic Toxic Disease Active 2019-04 Univers metabolic metabolic 0-20 ity of encephalop encephalop [place] at[place] [facility] Altered Altered Disease Active 2019-04 Univers mental mental 0-18 ity of status status 00:00: [place] 00 Medical Branch Abdominal Abdominal Disease Active 2019-0 Uni vers pain pain 8-03 ity of 00:00: [place] [facility] Peripheral Peripheral Disease Active 2019-0 U nivers nerve nerve 7-10 ity of disease disease 00:00: [place] 00 Medical Branch Choledocho Choledocho Disease Active 20180 U nivers lithiasis lithiasis 7-20 ity of 00:00: [place] [facility] Constipati Constipati Disease Active 20180 U nivers on on 7-18 ity of 00:00: [place] [facility] Acute Acute Disease Active 2018 Univers appendicit appendicit 6-10 it y of is is 00:00: [place] [facility] Transamini Transamini Disease Active 2017 U nivers tis tis 8-17 ity of 00:00: [place] [facility] Acute Acute Disease Active 2017 Univers cystitis cystitis 8-15 ity of without without 00:00: [place] hematuria hematuria 00 Medi brandy Branch History of History of Disease Active U nivers biliary biliary 8-15 ity of duct [place] placement 00 [place] 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 vomiting 00:00: [place] with with 00 Medical nausea nausea Branch Intractabl Intractabl Disease Active 2017 U nivers e e 8-15 ity of epigastric epigastric 00:[place] abdominal abdominal 00 Medi brandy pain pain Branch Obesity Obesity Disease Active 2015-04 Univers (BMI (BMI 1-17 ity of 30-39.9) 30-39.9) 00:00: [place] [facility] Chronic Chronic Disease Active 2015- Univers pain pain 7-27 ity of disorder disorder 00:00: [place] [facility] Hypokalemi Hypokalemi Disease Active 2015- U nivers a a 7-27 ity of 00:00: [place] [facility] Hypokalemi Hypokalemi Disease Active 2015- U nivers c periodic c periodic 7-27 it y of paralysis paralysis 00[place]00[place] Biliary Biliary Disease Active 2013-0 Univers disease disease 5-16 ity of 00:00: [place] [facility] Primary Primary Disease Active Univers biliary biliary 5-05 ity of cholangiti cholangiti 00:00: [place] [facility] Chronic Chronic Disease Active 2012-04 Univers pancreatit pancreatit 1-14 it y of is is 00:00: [place] [facility] Alcohol Alcohol Disease Active 2012-04 Univers use use 1-08 ity of 00:00: [place] 00 [facility] 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 1-08 ity of 00:00: [place] [facility] Elevated Elevated Disease Active 2012-04 Unive rs liver liver 1-08 ity of enzymes enzymes 00:00: [place] [facility] Essential Essential Disease Active 2012-04 Uni vers hypertensi hypertensi 1-08 it y of on on 00:00: [place] [facility] Fatty Fatty Disease Active 2012-04 Univers liver liver 1-08 ity of 00:00: [place] [facility] Immunity Immunity Disease Active 2012-04 Unive rs status status 1-08 ity of testing testing 00:00: [place] [facility] Nausea & Nausea & Disease Active 2012-04 Unive rs vomiting vomiting 1-08 ity of 00:00: [place] 00 Medical Branch Allergies, Adverse Reactions, Alerts Allergy Allergy Status Severity Reaction(s) Onset Inactive Treating Comm ents Source Name Type Date Date Clinician Codeine Propensi Active Itching 2014-04 Univer s ty to 0-31 ity of adverse 00:00: [place] reaction 00 Medical s Branch Codeine Propensi Active Rash 2012-04 Univers ty to 0-30 ity of adverse 00:00: [place] reaction 00 Medical s Branch CODEINE DRUG Active High ITCHING 2012-04 Univers INGREDI 0-30 ity of 00:00: [place] 00 Medical Branch CODEINE Allergy Active High Rash 2012-04 SLEH 0-30 00:00: 00 Social History Social Habit Start Date Stop Date Quantity Comments Source History SDOH University o f Alcohol Std [place] [facility] Drinks Branch History SDND University o f Alcohol Binge [place] [facility] Exposure to Not sure University of SARS-CoV-2 [place] [facility] (event) Branch History SDND University o f Alcohol Comment [place] [facility] Alcohol intake 2021-02-12 2021-02-12 Lifetime University of 00:00:00 00:00:00 non-drinker [place] [facility] (finding) Branch Tobacco use and 2018-11-15 2018-11-15 Never used Universit y of exposure 00:00:00 00:00:00 [place] [facility] History [facility] 2018-11-15 2018-11-15 1 University o f Alcohol Frequency 00:00:00 00:00:00 [facility] edical Branch History [facility] 2018-11-15 2018-11-15 3 University o f Financial 00:00:00 00:00:00 [place] [facility] History [facility] Food 2018-11-15 2018-11-15 1 Univers ity of Worry 00:00:00 00:00:00 [place] [facility] History [facility] Food 2018-11-15 2018-11-15 1 Univers ity of Scarcity 00:00:00 00:00:00 [place] [facility] History [facility] 2018-11-15 2018-11-15 2 University o f Transport Med 00:00:00 00:00:00 [place] [facility] History [facility] 2018-11-15 2018-11-15 2 University o f Transport Non-Med 00:00:00 00:00:00 [facility] Sex [birth year] At [birth year] Universit y of 00:00:00 00:00:00 [facility] Smoking Status Start Date Stop Date Source Never smoker [facility] [place] [facility] Medications Ordered Filled Start Stop Current Ordering Indication Dosage Frequency Signature Comments Components Source Medication Medication Date Date Medication? Clinician (SIG) Name Name ketorolac 2020-04 No 30mg 30 mg, Unive rs (TORADOL) 04-15 Slow IV ity of injection 02:15: 01:11 Push, [place] 30 mg 00 :00 ONCE, 1 Medical dose, On Branch 02/12/21 at 2115, Routine
hull line crew member approving Restricted medication : ERASMO GRAYSON proMETHazin 2020-04 No 25mg 25 mg, IV Univers e 04-15 Piggyback, ity of (PHENERGAN) 02:15: 01:12 [place]CE[place] 1 [place] 25 mg in 00 :00 dose, On Medical NaCl 0.9% [place] Branch (NS) 50 mL 02/12/21 piggyback at 2115, 50 mL iopamidol 2020-04- No [id number] 120mL 120 mL, Univers (ISOVUE 002-12 Intravenou ity o f 370-500 mL) 23:30: 22:13 s, ONCE, 1 [place] injection 00 :00 dose, On Medica l 120 mL [facility] 02/12/21 at 1830, Routine morpHINE 2020-04- No 4mg 4 mg, Slow Un you injection 4 02-12 IV Push, ity of mg 23:15: 22:23 ONCE, 1 [place] 00 :00 dose, On Medical [facility] 02/12/21 at 1815, STAT famotidine 2020-04- No 20mg 20 mg, Univ ers (PEPCID 002-12 Slow IV ity of (PF)) 21:30: 20:28 Push, [place] injection 00 :00 ONCE, 1 Medical 20 mg dose, On [facility] 02/12/21 at 1630, [place] NaCl 0.9% 2020-04- No 1000mL at 999 Uni vers (NS) bolus 0-12 02-31 mL/hr, ity of infusion 21:30: 21:30 1,000 mL, [place] as 1,000 mL 00 :00 IV Medical Infusion, Branch ONCE, 1 dose, On [place] 02/12/21 at 1630, [place] ondansetron 2020-04- No 8mg 8 mg, Slow Univers (ZOFRAN 02-12 IV Push, ity of (PF)) 21:30: 20:23 ONCE, 1 [place] injection 8 00 :00 dose, On Medi brandy mg [facility] 02/12/21 at 1630, [place] ketorolac 2020-04- No 30mg 30 mg, Unive rs (TORADOL) 002-12 Slow IV ity of injection 21:30: 20:23 Push, [place] 30 mg 00 :00 ONCE, 1 Medical dose, On [facility] 02/12/21 at 1630, [place]
Fa culty member approving Restricted medication : ROSALINDA FISHER morpHINE 2020-04- No 4mg 4 mg, Slow Un you injection 4 02-12 IV Push, ity of mg 21:30: 20:23 ONCE, 1 [place] 00 :00 dose, On Medical [facility] 02/12/21 at 1630, STAT ondansetron 2020-04 Yes [id number] 8mg Take 1 Univers 8 mg tablet 0-31 tablet by ity of 00:00: mouth [place] 00 every 8 Medical (eight) Branch hours as needed for Nausea and Vomiting (N/V). morpHINE 2020-04 No 4mg 4 mg, Slow Un you injection 4 001-18 IV Push, ity of mg 07:00: 05:56 ONCE, 1 [place] 00 :00 dose, On Medical Wed Branch 01/18/21 at 0200, STAT famotidine 2020-04 No 20mg 20 mg, Univ ers (PEPCID 0-01-18 Slow IV ity of (PF)) 06:00: 05:08 Push, [place] injection 00 :00 ONCE, 1 Medical 20 mg dose, On Branch 01/18/21 at 0100, Routine maalox:diph 2020-04 No 15mL 15 mL, Uni vers enhydrAMINE 001-18 Oral, ity of :lidocaine 06:00: 05:08 ONCE, 1 [place] 2 % viscous 00 :00 dose, On Medi brandy 1:1:1 Wed Branch (FIRST-[facility] 01/18/21 at [facility]) 0100, oral Routine suspension 15 mL dicyclomine 2020-04 No 20mg 20 mg, Uni vers (BENTYL) 001-18 Oral, ity of tablet 20 06:00: 05:08 ONCE, 1 [place] mg 00 :00 dose, On Medical Wed Branch 01/18/21 at 0100, Routine iopamidol 2020-04 No [id number] 120mL 120 mL, Univers (ISOVUE 001-18 Intravenou ity o f 370-500 mL) 04:45: 03:33 s, ONCE, 1 [place] injection 00 :00 dose, On Medica l 120 mL Tue Branch 01/17/21 at 2345, Routine morpHINE 2020-04 No 4mg 4 mg, Slow Un you injection 4 001-18 IV Push, ity of mg 03:45: 02:58 ONCE, 1 [place] 00 :00 dose, On Medical Tue Branch 01/17/21 at 2245, STAT ondansetron 2020-04 No 4mg 4 mg, Slow Univers (ZOFRAN 0-06 10-06 IV Push, ity of (PF)) 03:45: 02:59 ONCE, 1 [place] injection 4 00 :00 dose, On Medi brandy mg e Branch 01/17/21 at 2245, [place] NaCl 0.9% 2020-04- No 1000mL at 999 Uni vers (NS) bolus 0-06 10-06 mL/hr, ity of infusion 03:45: 06:13 1,000 mL, [place] as 1,000 mL 00 :00 IV Medical Piggyback, Branch ONCE, 1 dose, On 01/17/21 at 2245, STAT diazePAM 2 Yes 2mg Take 2 mg Un you mg tablet 9-25 by mouth. ity o f 11:25: [address] Branch erythromyci Yes erythromyc Univers n 5 mg/gram 9-25 in 5 ity of (0.5 %) 11:25: mg/gram [place] ophthalmic 57 (0.5 %) Medica l ointment eye Branch ointment ondansetron Yes ondansetro Univers 4 mg tablet 9-25 n HCl 4 mg it y of 11:25: tablet [address] Branch diazePAM 2 Yes 2mg Take 2 mg Un you mg tablet 9-25 by mouth. ity o f 11:25: [address] Branch erythromyci Yes erythromyc Univers n 5 mg/gram 9-25 in 5 ity of (0.5 %) 11:25: mg/gram [place] ophthalmic 57 (0.5 %) Medica l ointment eye Branch ointment ondansetron Yes ondansetro Univers 4 mg tablet 9-25 n HCl 4 mg it y of 11:25: tablet [address] Branch diazePAM 2 Yes 2mg Take 2 mg Un you mg tablet 9-25 by mouth. ity o f 11:25: [address] Branch erythromyci Yes erythromyc Univers n 5 mg/gram 9-25 in 5 ity of (0.5 %) 11:25: mg/gram [place] ophthalmic 57 (0.5 %) Medica l ointment eye Branch ointment ondansetron Yes ondansetro Univers 4 mg tablet 9-25 n HCl 4 mg it y of 11:25: tablet [place] [address] Medical Branch diazePAM 2 Yes 2mg Take 2 mg Un you mg tablet 9-25 by mouth. ity o f 11:25: [place] [address] Medical Branch erythromyci Yes erythromyc Univers n 5 mg/gram 9-25 in 5 ity of (0.5 %) 11:25: mg/gram [place] ophthalmic 57 (0.5 %) Medica l ointment eye Branch ointment ondansetron Yes ondansetro Univers 4 mg tablet 9-25 n HCl 4 mg it y of 11:25: tablet [place] [address] Medical Branch diazePAM 2 Yes 2mg Take 2 mg Un you mg tablet 9-25 by mouth. ity o f 11:25: [address] Branch erythromyci Yes erythromyc Univers n 5 mg/gram 9-25 in 5 ity of (0.5 %) 11:25: mg/gram [place] ophthalmic 57 (0.5 %) Medica l ointment eye Branch ointment ondansetron Yes ondansetro Univers 4 mg tablet 9-25 n HCl 4 mg it y of 11:25: tablet [place] [address] Medical Branch diazePAM 2 Yes 2mg Take 2 mg Un you mg tablet 9-25 by mouth. ity o f 11:25: [address] Branch erythromyci Yes erythromyc Univers n 5 mg/gram 9-25 in 5 ity of (0.5 %) 11:25: mg/gram [place] ophthalmic 57 (0.5 %) Medica l ointment eye Branch ointment ondansetron Yes ondansetro Univers 4 mg tablet 9-25 n HCl 4 mg it y of 11:25: tablet [place] [address] Medical Branch albuterol Yes [id number] 2{puff} Inhale 2 Univers 90 9-25 Puffs ity of mcg/actuati 00:00: every 6 [place] as on inhaler 00 (six) Medical hours as Branch needed for Wheezing or Shortness of Breath. albuterol Yes [id number] 2{puff} Inhale 2 Univers 90 9-25 Puffs ity of mcg/actuati 00:00: every 6 [place] as on inhaler 00 (six) Medical hours as Branch needed for Wheezing or Shortness of Breath. albuterol Yes [id number] 2{puff} Inhale 2 Univers 90 9-25 Puffs ity of mcg/actuati 00:00: every 6 [place] as on inhaler 00 (six) Medical hours as Branch needed for Wheezing or Shortness of Breath. albuterol Yes [id number] 2{puff} Inhale 2 Univers 90 9-25 Puffs ity of mcg/actuati 00:00: every 6 [place] as on inhaler 00 (six) Medical hours as Branch needed for Wheezing or Shortness of Breath. albuterol Yes [id number] 2{puff} Inhale 2 Univers 90 9-25 Puffs ity of mcg/actuati 00:00: every 6 [place] as on inhaler 00 (six) Medical hours as Branch needed for Wheezing or Shortness of Breath. albuterol Yes [id number] 2{puff} Inhale 2 Univers 90 9-25 Puffs ity of mcg/actuati 00:00: every 6 [place] as on inhaler 00 (six) Medical hours as Branch needed for Wheezing or Shortness of Breath. promethazin 2020- Yes [id number] 5mL Take 5 mL Univers e-dextromet 9-25 10-03 by mouth 4 i ty of horphan 00:00: 04:59 (four) [place] 6.25-15 00 :00 times Medical mg/5 mL daily as Branch syrup needed for Cough or Cold symptoms for up to 7 days. promethazin 2020- Yes [id number] 5mL Take 5 mL Univers e-dextromet 9-25 10-03 by mouth 4 i ty of horphan 00:00: 04:59 (four) [place] 6.25-15 00 :00 times Medical mg/5 mL daily as Branch syrup needed for Cough or Cold symptoms for up to 7 days. promethazin 2020- Yes [id number] 5mL Take 5 mL Univers e-dextromet 9-25 10-03 by mouth 4 i ty of horphan 00:00: 04:59 (four) [place] 6.25-15 00 :00 times Medical mg/5 mL daily as Branch syrup needed for Cough or Cold symptoms for up to 7 days. tiZANidine Yes Univers 2 mg tablet 01-05 ity of 00:00: [facility] Branch tiZANidine Yes Univers 2 mg tablet 01-05 ity of 00:: [facility] Branch tiZANidine Yes Univers 2 mg tablet 01-05 ity of 00:00: [facility] Branch tiZANidine Yes Univers 2 mg tablet 01-05 ity of 00:00: [facility] Branch tiZANidine Yes Univers 2 mg tablet 01-05 ity of 00:00: [facility] Branch tiZANidine Yes Univers 2 mg tablet 01-05 ity of 00:00: [place] [facility] Branch dicyclomine 2020- No 20mg 20 mg, Uni vers (BENTYL) 12-30 Oral, ity of capsule 20 23:00: 22:03 ONCE, 1 [place] as mg 00 :00 dose, On Medical Fri Branch 12/30/20 at 1800, Routine FENTanyl PF 2020- No 50ug 50 mcg, Un you (SUBLIMAZE 12-30 Slow IV ity o f (PF)) 23:00: 22:03 Push, [place] injection 00 :00 ONCE, 1 Medical 50 mcg dose, On Branch 12/30/20 at 1800, Routine ketorolac 2020- No 30mg 30 mg, Unive rs (TORADOL) 12-30 Slow IV ity of injection 23:00: 22:03 Push, [place] 30 mg 00 :00 ONCE, 1 Medical dose, On Branch 12/30/20 at 1800, [facility] medication : MARU BAEZ dicyclomine 2020- No 20mg 20 mg, Uni vers (BENTYL) 12-30 Oral, ity of capsule 20 23:00: 22:03 ONCE, 1 [place] as mg 00 :00 dose, On Medical Fri Branch 12/30/20 at 1800, Routine FENTanyl PF 2020- No 50ug 50 mcg, Un you (SUBLIMAZE 12-30 Slow IV ity o f (PF)) 23:00: 22:03 Push, [place] injection 00 :00 ONCE, 1 Medical 50 mcg dose, On Branch Sat12/30/20 at 1800, Routine ketorolac 2020- No 30mg 30 mg, Unive rs (TORADOL) 12-30 Slow IV ity of injection 23:00: 22:03 Push, [place] 30 mg 00 :00 ONCE, 1 Medical dose, On Branch Sat12/30/20 at 1800, [place]
Fa culty member approving Restricted medication : MARU BAEZ maalox:diph 2020- No 15mL 15 mL, Uni vers enhydrAMINE 12-30 Oral, ity of :lidocaine 21:45: 20:37 ONCE, 1 [place] 2 % viscous 00 :00 dose, On Medi brandy 1:1:1 Fri Branch (FIRST-12/30/20 at [facility]) 1645, oral Routine suspension 15 mL famotidine 2020- No 20mg 20 mg, Univ ers (PEPCID 12-30 Slow IV ity of (PF)) 21:45: 20:37 Push, [place] injection 00 :00 ONCE, 1 Medical 20 mg dose, On Branch Sat12/30/20 at 1645, Routine maalox:diph No 15mL 15 mL, Uni vers enhydrAMINE 12-30 Oral, ity of :lidocaine 21:45: 20:37 ONCE, 1 [place] as 2 % viscous 00 :00 dose, On Medi brandy 1:1:1 Fri Branch (FIRST-12/30/20 at [facility]) 1645, oral Routine suspension 15 mL famotidine 2020- No 20mg 20 mg, Univ ers (PEPCID 12-30 Slow IV ity of (PF)) 21:45: 20:37 Push, [place] injection 00 :00 ONCE, 1 Medical 20 mg dose, On Branch Sat12/30/20 at 1645, Routine iopamidol 2020- No [id number] 80mL 80 mL, Univers (ISOVUE 12-30 Intravenou ity o f 370-500 mL) 20:00: 18:48 s, ONCE, 1 [place] injection 00 :00 dose, On Medica l 80 mL Fri Branch 12/30/20 at 1500, Routine iopamidol 2020- No [id number] 80mL 80 mL, Univers (ISOVUE 12-30 Intravenou ity o f 370-500 mL) 20:00: 18:48 s, ONCE, 1 [place] injection 00 :00 dose, On Medica l 80 mL Fri Branch 12/30/20 at 1500, Routine morpHINE 2020- No 4mg 4 mg, Slow Un you injection 4 12-30 IV Push, ity of mg 19:30: 18:35 ONCE, 1 [place] 00 :00 dose, On [facility] Branch 12/30/20 at 1430, STAT ondansetron 2020- No 4mg 4 mg, Slow Univers (ZOFRAN 12-30 IV Push, ity of (PF)) 19:30: 18:35 ONCE, 1 [place] injection 4 00 :00 dose, On Medi brandy mg Fri Branch 12/30/20 at 1430, [place] NaCl 0.9% 2020- No 1000mL at 999 Uni vers (NS) bolus 12-30 mL/hr, ity of infusion 19:30: 20:38 1,000 mL, [place] as 1,000 mL 00 :00 IV Medical Piggyback, Branch ONCE, 1 dose, On Sat12/30/20 at 1430, STAT morpHINE 2020-2020- No 4mg 4 mg, Slow Un you injection 4 12-30 IV Push, ity of mg 19:30: 18:35 ONCE, 1 [place] 00 :00 dose, On Medical Fri Branch 12/30/20 at 1430, STAT ondansetron 2020- No 4mg 4 mg, Slow Univers (ZOFRAN 12-30 IV Push, ity of (PF)) 19:30: 18:35 ONCE, 1 [place] injection 4 00 :00 dose, On Medi brandy mg Fri Branch 12/30/20 at 1430, [place] NaCl 0.9% 2020- No 1000mL at 999 Uni vers (NS) bolus 9-17 09-17 mL/hr, ity of infusion 19:30: 20:38 1,000 mL, [place] as 1,000 mL 00 :00 [facility], [facility] dose, On Sat12/30/20 at 1430, STAT traZODone 2020-0 Yes 100mg Take 100 Uni vers 100 mg 9-17 mg by ity of tablet 10:15: mouth at [place] [address] bedtime. Medical Branch traZODone 2020-0 Yes 100mg Take 100 Uni vers 100 mg 9-17 mg by ity of tablet 10:15: mouth at [place] [address] bedtime. Medical Branch traZODone 2020-0 Yes 100mg Take 100 Uni vers 100 mg 9-17 mg by ity of tablet 10:15: mouth at [place] [address] bedtime. Medical Branch traZODone 2020-0 Yes 100mg Take 100 Uni vers 100 mg 9-17 mg by ity of tablet 10:15: mouth at [place] [address] bedtime. Medical Branch traZODone 2020-0 Yes 100mg Take 100 Uni vers 100 mg 9-17 mg by ity of tablet 10:15: mouth at [place] [address] bedtime. Medical Branch traZODone 2020-0 Yes 100mg Take 100 Uni vers 100 mg 9-17 mg by ity of tablet 10:15: mouth at [place] [address] bedtime. Medical Branch traZODone 2020-0 Yes 100mg Take 100 Uni vers 100 mg 9-17 mg by ity of tablet 10:15: mouth at [place] [address] bedtime. Medical Branch traZODone 2020-0 Yes 100mg Take 100 Uni vers 100 mg 9-17 mg by ity of tablet 10:15: mouth at [place] [address] bedtime. Medical Branch traZODone 2020-0 Yes 100mg Take 100 Uni vers 100 mg 9-17 mg by ity of tablet 10:15: mouth at [place] [address] bedtime. Medical Branch traZODone 2020-0 Yes 100mg Take 100 Uni vers 100 mg 9-17 mg by ity of tablet 10:15: mouth at [place] [address] bedtime. Medical Branch traZODone 2020-0 Yes 100mg Take 100 Uni vers 100 mg 9-17 mg by ity of tablet 10:15: mouth at [place] [address] bedtime. Medical Branch dicyclomine 0 Yes [id number] 20mg Take 1 Univers 20 mg 9-17 tablet by ity of tablet 00:00: mouth [place] 00 every 6 Medical (six) Branch hours as needed for Abdominal pain. dicyclomine 2020-0 Yes [id number] 20mg Take 1 Univers 20 mg 9-17 tablet by ity of tablet 00:00: mouth [place] 00 every 6 Medical (six) Branch hours as needed for Abdominal pain. dicyclomine 2020-0 Yes [id number] 20mg Take 1 Univers 20 mg 9-17 tablet by ity of tablet 00:00: mouth [place] 00 every 6 Medical (six) Branch hours as needed for Abdominal pain. dicyclomine 2020-0 Yes [id number] 20mg Take 1 Univers 20 mg 9-17 tablet by ity of tablet 00:00: mouth [place] 00 every 6 Medical (six) Branch hours as needed for Abdominal pain. dicyclomine 2020-0 Yes [id number] 20mg Take 1 Univers 20 mg 9-17 tablet by ity of tablet 00:00: mouth [place] 00 every 6 Medical (six) Branch hours as needed for Abdominal pain. dicyclomine 2020-0 Yes [id number] 20mg Take 1 Univers 20 mg 9-17 tablet by ity of tablet 00:00: mouth [place] 00 every 6 Medical (six) Branch hours as needed for Abdominal pain. dicyclomine 2020-0 Yes [id number] 20mg Take 1 [facility] 20 mg 9-17 tablet by ity of tablet 00:00: mouth [place] 00 every 6 Medical (six) Branch hours as needed for Abdominal pain. dicyclomine 2020-0 Yes [id number] 20mg Take 1 [facility] 20 mg 9-17 tablet by ity of tablet 00:00: mouth [place] 00 every 6 Medical (six) Branch hours as needed for Abdominal pain. traZODone 2020-0 Yes 100mg Take 100 [facility] vers 100 mg 9-03 mg by ity of tablet 15:23: mouth at [place] 50 bedtime. Medical Branch losartan 2020-0 Yes 100mg Take 100 Univ ers 100 mg 9-03 mg by ity of tablet 15:23: mouth [place] 50 daily. Medical Branch gabapentin 2020-0 Yes 300mg Take 300 Un you 300 mg 9-03 mg by ity of capsule 15:23: mouth 2 [place] 50 (two) Medical times Branch daily. traZODone 2021-0 Yes 100mg Take 100 Uni vers 100 mg 9-03 mg by ity of tablet 15:23: mouth at [place] 50 bedtime. Medical Branch losartan 2021-0 Yes 100mg Take 100 Univ ers 100 mg 9-03 mg by ity of tablet 15:23: mouth [place] 50 daily. Medical Branch gabapentin 2021-0 Yes 300mg Take 300 Un you 300 mg 9-03 mg by ity of capsule 15:23: mouth 2 [place] 50 (two) Medical times Branch daily. traZODone 2021-0 Yes 100mg Take 100 Uni vers 100 mg 9-03 mg by ity of tablet 15:23: mouth at [place] 50 bedtime. Medical Branch losartan 2021-0 Yes 100mg Take 100 Univ ers 100 mg 9-03 mg by ity of tablet 15:23: mouth [place] 50 daily. Medical Branch gabapentin 2021-0 Yes 300mg Take 300 Un you 300 mg 9-03 mg by ity of capsule 15:23: mouth 2 [place] 50 (two) Medical times Branch daily. losartan 2021-0 Yes 100mg Take 100 Univ ers 100 mg 9-03 mg by ity of tablet 10:23: mouth [place] 50 daily. Medical Branch gabapentin 2021-0 Yes 300mg Take 300 Un you 300 mg 9-03 mg by ity of capsule 10:23: mouth 2 [place] 50 (two) Medical times Branch daily. losartan 2021-0 Yes 100mg Take 100 Univ ers 100 mg 9-03 mg by ity of tablet 10:23: mouth [place] 50 daily. Medical Branch gabapentin 2021-0 Yes 300mg Take 300 Un you 300 mg 9-03 mg by ity of capsule 10:23: mouth 2 [place] 50 (two) Medical times Branch daily. losartan 2021-0 Yes 100mg Take 100 [facility] ers 100 mg 9-03 mg by ity of tablet 10:23: mouth [place] 50 daily. Medical Branch gabapentin 2021-0 Yes 300mg Take 300 Un you 300 mg 9-03 mg by ity of capsule 10:23: mouth 2 [place] 50 (two) Medical times Branch daily. losartan 2021-0 Yes 100mg Take 100 [facility] ers 100 mg 9-03 mg by ity of tablet 10:23: mouth [place] 50 daily. Medical Branch gabapentin 2021-0 Yes 300mg Take 300 Un you 300 mg 9-03 mg by ity of capsule 10:23: mouth 2 [place] 50 (two) Medical times Branch daily. losartan 2021-0 Yes 100mg Take 100 [facility] ers 100 mg 9-03 mg by ity of tablet 10:23: mouth [place] 50 daily. Medical Branch gabapentin 2021-0 Yes 300mg Take 300 Un you 300 mg 9-03 mg by ity of capsule 10:23: mouth 2 [place] 50 (two) Medical times Branch daily. losartan 2021-0 Yes 100mg Take 100 [facility] ers 100 mg 9-03 mg by ity of tablet 10:23: mouth [place] 50 daily. Medical Branch gabapentin 2021-0 Yes 300mg Take 300 Un you 300 mg 9-03 mg by ity of capsule 10:23: mouth 2 [place] 50 (two) Medical times Branch daily. losartan 2021-0 Yes 100mg Take 100 [facility] ers 100 mg 9-03 mg by ity of tablet 10:23: mouth [place] 50 daily. Medical Branch gabapentin 2021-0 Yes 300mg Take 300 Un you 300 mg 9-03 mg by ity of capsule 10:23: mouth 2 [place] 50 (two) Medical times Branch daily. losartan 2021-0 Yes 100mg Take 100 [facility] ers 100 mg 9-03 mg by ity of tablet 10:23: mouth [place] 50 daily. Medical Branch gabapentin 2021-0 Yes 300mg Take 300 Un you 300 mg 9-03 mg by ity of capsule 10:23: mouth 2 [place] 50 (two) Medical times Branch daily. losartan 2021-0 Yes 100mg Take 100 [facility] ers 100 mg 9-03 mg by ity of tablet 10:23: mouth [place] 50 daily. Medical Branch gabapentin 2021-0 Yes 300mg Take 300 Un you 300 mg 9-03 mg by ity of capsule 10:23: mouth 2 [place] 50 (two) Medical times Branch daily. losartan 2021-0 Yes 100mg Take 100 [facility] ers 100 mg 9-03 mg by ity of tablet 10:23: mouth [place] 50 daily. Medical Branch gabapentin 2021-0 Yes 300mg Take 300 Un you 300 mg 9-03 mg by ity of capsule 10:23: mouth 2 [place] 50 (two) Medical times Branch daily. losartan 2021-0 Yes 100mg Take 100 [facility] ers 100 mg 9-03 mg by ity of tablet 10:23: mouth [place] 50 daily. Medical Branch gabapentin 2021-0 Yes 300mg Take 300 Un you 300 mg 903 mg by ity of capsule 10:23: mouth 2 [place] 50 (two) Medical times [place] daily. cephALEXin 2020- No [id number] 500mg Take 1 [facility] 500 mg 12-16 capsule by ity of capsule 00:00: 04:59 mouth 4 [place] 00 :00 (four) Medical times [place] daily for 7 days. cephALEXin 2020- No [id number] 500mg Take 1 [facility] 500 mg 12-16 capsule by ity of capsule 00:00: 04:59 mouth 4 [place] 00 :00 (four) Medical times [place] daily for 7 days. hydrOXYzine Yes Univer s 25 mg 9- ity of tablet 00:00: [place] [facility] SERTraline 0 Yes [facility] 25 mg 9- ity of tablet 00:00: [place] [facility] hydrOXYzine 2020-0 Yes Univer s 25 mg 9- ity of tablet 00:00: [place] [facility] SERTraline 2020-0 Yes [facility] 25 mg 9- ity of tablet 00:00: [place] [facility] hydrOXYzine 2020-0 Yes Univer s 25 mg 9- ity of tablet 00:00: [place] [facility] SERTraline 2020-0 Yes [facility] 25 mg 9- ity of tablet 00:00: [place] [facility] hydrOXYzine 2020-0 Yes Univer s 25 mg 9- ity of tablet 00:00: [address] SERTraline 2020-0 Yes [facility] 25 mg 9- ity of tablet 00:00: [place] [facility] hydrOXYzine 2020-0 Yes Univer s 25 mg 9-01 ity of tablet 00:00: [address] SERTraline 2020-0 Yes [facility] 25 mg 9-01 ity of tablet 00:00: [place] [facility] hydrOXYzine 2020-0 Yes Univer s 25 mg 9- ity of tablet 00:00: [place] [facility] SERTraline 2020-0 Yes [facility] 25 mg 9- ity of tablet 00:00: [address] morpHINE 2020-0 2020- No 4mg 4 mg, Slow Un you injection 4 12-06 IV Push, ity of mg 00:00: 23:00 ONCE, 1 [place] 00 :00 dose, [facility] Medical 12/05/20 at Branch 1900, STAT dicyclomine No 20mg 20 mg, Uni vers (BENTYL) 12-06 Intramuscu ity of injection 00:00: 23:00 lar, ONCE, [place] 20 mg 00 :00 1 dose, Medical [facility] 12/05/20 at 1900, Routine iopamidol 2020- No [id number] 120mL 120 mL, Univers (ISOVUE 12-05 Intravenou ity o f 370-500 mL) 22:30: 21:20 s, ONCE, 1 [place] injection 00 :00 dose, [facility] Medic al 120 mL 12/05/20 at Branch 1730, Routine famotidine No 20mg 20 mg, Univ ers (PEPCID 12-05 Slow IV ity of (PF)) 22:15: 22:14 Push, [place] injection 00 :00 ONCE, 1 Medical 20 mg dose, [facility] 12/05/20 at 1715, [place] maalox:diph No 15mL 15 mL, Uni vers enhydrAMINE 12-05 Oral, ity of :lidocaine 22:15: 22:13 ONCE, 1 [place] 2 % viscous 00 :00 dose, Mon Med ical 1:1:1 12/05/20 at [place] (FIRST-MOUT 1715, HWASH BLM) Routine oral suspension 15 mL NaCl 0.9% No 1000mL at 999 Uni vers (NS) bolus 12-05 mL/hr, ity of infusion 22:00: 23:51 1,000 mL, [place] as 1,000 mL 00 :00 IV Medical Piggyback, [place] ONCE, 1 dose, [facility] 12/05/20 at 1700, STAT ondansetron No 4mg 4 mg, Slow Univers (ZOFRAN 12-05 IV Push, ity of (PF)) 22:00: 22:13 ONCE, 1 [place] injection 4 00 :00 dose, Mon Med ical mg 12/05/20 at Branch 1700, [place] morpHINE 0 2020- No 4mg 4 mg, Slow Un you injection 4 8- 08-23 IV Push, ity of mg 22:00: 22:15 ONCE, 1 [place] 00 :00 dose, [facility] Medical 12/05/20 at Branch 1700, STAT ondansetron 0 Yes [id number] 4mg Take 1 [facility] 4 mg 8-23 tablet by ity of disintegrat 00:00: mouth [place] ing tablet 00 every 8 Medica l (eight) Branch hours as needed for Nausea and Vomiting (N/V). ondansetron Yes [id number] 4mg Take 1 [facility] 4 mg 8-23 tablet by ity of disintegrat 00:00: mouth [place] ing tablet 00 every 8 Medica l (eight) Branch hours as needed for Nausea and Vomiting (N/V). ondansetron Yes [id number] 4mg Take 1 [facility] 4 mg 8-23 tablet by ity of disintegrat 00:00: mouth [place] ing tablet 00 every 8 Medica l (eight) Branch hours as needed for Nausea and Vomiting (N/V). ondansetron Yes [id number] 4mg Take 1 [facility] 4 mg 8-23 tablet by ity of disintegrat 00:00: mouth [place] ing tablet 00 every 8 Medica l (eight) Branch hours as needed for Nausea and Vomiting (N/V). ondansetron Yes [id number] 4mg Take 1 [facility] 4 mg 8-23 tablet by ity of disintegrat 00:00: mouth [place] ing tablet 00 every 8 Medica l (eight) Branch hours as needed for Nausea and Vomiting (N/V). ondansetron Yes [id number] 4mg Take 1 [facility] 4 mg 8-23 tablet by ity of disintegrat 00:00: mouth [place] ing tablet 00 every 8 Medica l (eight) Branch hours as needed for Nausea and Vomiting (N/V). ondansetron 0 Yes [id number] 4mg Take 1 [facility] 4 mg 8-23 tablet by ity of disintegrat 00:00: mouth [place] ing tablet 00 every 8 Medica l (eight) Branch hours as needed for Nausea and Vomiting (N/V). ondansetron 2021-0 Yes [id number] 4mg Take 1 [facility] 4 mg 8-23 tablet by ity of disintegrat 00:00: mouth [place] ing tablet 00 every 8 Medica l (eight) Branch hours as needed for Nausea and Vomiting (N/V). ondansetron 0 Yes [id number] 4mg Take 1 [facility] 4 mg 8-23 tablet by ity of disintegrat 00:00: mouth [place] ing tablet 00 every 8 Medica l (eight) Branch hours as needed for Nausea and Vomiting (N/V). ondansetron Yes [id number] 4mg Take 1 [facility] 4 mg 8-23 tablet by ity of disintegrat 00:00: mouth [place] ing tablet 00 every 8 Medica l (eight) Branch hours as needed for Nausea and Vomiting (N/V). ondansetron Yes [id number] 4mg Take 1 [facility] 4 mg 8-23 tablet by ity of disintegrat 00:00: mouth [place] ing tablet 00 every 8 Medica l (eight) Branch hours as needed for Nausea and Vomiting (N/V). ondansetron Yes [id number] 4mg Take 1 [facility] 4 mg 8-23 tablet by ity of disintegrat 00:00: mouth [place] ing tablet 00 every 8 Medica l (eight) Branch hours as needed for Nausea and Vomiting (N/V). ondansetron 0 Yes [id number] 4mg Take 1 [facility] 4 mg 8-23 tablet by ity of disintegrat 00:00: mouth [place] ing tablet 00 every 8 Medica l (eight) Branch hours as needed for Nausea and Vomiting (N/V). ondansetron 0 Yes [id number] 4mg Take 1 [facility] 4 mg 8-23 tablet by ity of disintegrat 00:00: mouth [place] ing tablet 00 every 8 Medica l (eight) Branch hours as needed for Nausea and Vomiting (N/V). ondansetron 0 Yes [id number] 4mg Take 1 [facility] 4 mg 8-23 tablet by ity of disintegrat 00:00: mouth [place] ing tablet 00 every 8 Medica l (eight) Branch hours as needed for Nausea and Vomiting (N/V). dicyclomine 2020- No [id number] 20mg Take 1 [facility] 20 mg 8-23 08-31 tablet by ity of tablet 00:00: 04:59 mouth 4 [place] 00 :00 (four) Medical times Branch daily for 7 days. fenofibrate Yes 134mg 134 mg, Un you micronized 10-13 Oral, ity of (LOFIBRA) 14:00: DAILY, [place] capsule 134 00 First dose Me dical mg on [place] Branch 10/13/20 at 0900, Until Discontinu ed, Routine traZODone Yes 100mg Take 100 Uni vers 100 mg 7-01 mg by ity of tablet 01:44: mouth at [place] [address] bedtime. Medical Branch losartan Yes 100mg Take 100 Univ ers 100 mg 7-01 mg by ity of tablet 01:44: mouth [place] 06 daily. Medical Branch gabapentin Yes 300mg Take 300 Un you 300 mg 7-01 mg by ity of capsule 01:44: mouth 2 [place] 06 (two) Medical times Branch daily. traZODone Yes 100mg Take 100 Uni vers 100 mg 7-01 mg by ity of tablet 01:44: mouth at [place] [address] bedtime. Medical Branch losartan 0 Yes 100mg Take 100 Univ ers 100 mg 7-01 mg by ity of tablet 01:44: mouth [place] 06 daily. Medical Branch gabapentin Yes 300mg Take 300 Un you 300 mg 7-01 mg by ity of capsule 01:44: mouth 2 [place] 06 (two) Medical times Branch daily. HYDROcodone Yes 1{tbl} 1 tablet, Univers -acetaminop 10-13 Oral, BID, it y of hen (NORCO 01:00: First dose [place] 5) 5-325 mg 00 on Wed Medica l tablet 1 10/12/20 at [facility] h tablet 1999, Until Discontinu ed, Routine proMETHazin 2020-2020- No 25mg 25 mg, Uni vers e 10-12 Oral, ity of (PHENERGAN) 17:45: 20:05 ONCE, 1 [place] tablet 25 00 :00 dose, Wed Medic al mg 10/12/20 at Branch 1245, Routine tiZANidine 2020- No 4mg 4 mg, Unive rs (ZANAFLEX) 6-30 06-30 Oral, ity of tablet 4 mg 17:45: 20:05 ONCE, 1 [place] 00 :00 dose, Sat10/12/20 at Branch 1245, Routine lipase-prot 2020-0 Yes 3{capsu 3 capsule, Univers ease-amylas 30 le} Oral, TID ity of e (CREON) 17:00: MEALS, [place] 12,000-38,0 00 First dose Me dical 00 -60,000 on Sat [place] unit 10/12/20 at capsule 3 1200, capsule Until Discontinu ed, Routine losartan 2020-0 Yes 100mg 100 mg, Unive rs (COZAAR) 6-30 Oral, ity of tablet 100 14:00: DAILY, [place] mg 00 First dose Medical on Sat [place] 10/12/20 at 0900, Until Discontinu ed, Routine ursodioL 2020-0 Yes 250mg 250 mg, Unive rs (EUGENE) 6-30 Oral, BID, ity of tablet 250 13:00: First dose [place] mg 00 on Sat [facility] 10/12/20 at Branch 0800, Until Discontinu ed, Routine heparin 2020-0 Yes 5000U 5,000 Univers (porcine) 6-30 Units, ity of injection 13:00: Subcut[place]o [place] 5,000 Units 00 us, Q12H, Med ical First dose Branch on Sat10/12/20 at 0800, Until Discontinu ed, Routine traZODone 2020-0 Yes 100mg 100 mg, Univ ers (DESYREL) 6-30 Oral, QHS, ity of tablet 100 03:00: First dose [place] mg 00 on [facility] 10/11/20 at Branch 2200, Until Discontinu ed, Routine gabapentin 2020-0 Yes 300mg 300 mg, Uni vers (NEURONTIN) 6-30 Oral, BID, it y of capsule 300 03:00: First dose [place] mg 00 on [facility] 10/11/20 at Branch 2200, Until Discontinu ed, Routine ondansetron 2020-0 Yes 4mg 4 mg, Slow Univers (ZOFRAN 6-30 IV Push, ity of (PF)) 02:52: Q6HPRN, [place] injection 4 29 Starting Medi brandy mg [facility] 10/11/20 at 2152, Until Discontinu ed, Routine, Nausea and Vomiting (N/V) HYDROcodone 2020- No 1{tbl} 1 tablet, Univers -acetaminop 6-30 06-30 Oral, ity of hen (NORCO) 02:52: 15:44 Q6HPRN, [place] 10-325 mg 25 :37 Starting Medica l tablet 1 [facility] tablet 10/11/20 at 2152, Until 10/12/20 at 1044, Routine, Pain (scale 7-10) HYDROcodone 2020-2020- No 1{tbl} 1 tablet, Univers -acetaminop 6-30 07-02 Oral, ity of hen (NORCO 02:51: 02:50 Q6HPRN, [place] 5) 5-325 mg 18 :18 Starting Medi brandy tablet 1 [facility] tablet 10/11/20 at 2151, Until [place] 10/13/20 at 2150, Routine, Pain (scale 4-6) ibuprofen Yes 200mg 200 mg, Univ ers (MOTRIN IB) 6-30 Oral, ity of tablet 200 02:51: Q6HPRN, [place] mg 13 Starting Medical [facility] 10/11/20 at 2151, Until Discontinu ed, Routine, Pain (scale 1-3) morpHINE 2020- No 4mg 4 mg, Slow Un you injection 4 30 06-30 IV Push, ity of mg 01:15: 00:14 ONCE, 1 [place] 00 :00 dose, [facility] 10/11/20 at Branch 2015, STAT fenofibrate 2020- Yes 145mg Take 1 [facility] 145 mg 6-30 tablet by ity of tablet 00:00: mouth [place] 00 daily. Medical Branch lipase-prot 2020- Yes [id number] 3{capsu Take 3 [facility] ease-amylas 6-30 le} capsules ity of e 00:00: by mouth 3 [place] 12,000-38,0 00 (three) Medic al 00 -60,000 times Branch unit daily with capsule meals. ursodioL Yes 250mg Take 1 Un you 250 mg 6-30 tablet by ity of tablet 00:00: mouth 2 [place] 00 (two) Medical times Branch daily. fenofibrate 2020-0 Yes [id number] 145mg Take 1 [facility] 145 mg 6-30 tablet by ity of tablet 00:00: mouth [place] 00 daily. Medical Branch lipase-prot 2020-0 Yes [id number] 3{capsu Take 3 [facility] ease-amylas 6-30 le} capsules ity of e 00:00: by mouth 3 [place] 12,000-38,0 00 (three) Medic al 00 -60,000 times Branch unit daily with capsule meals. ursodioL 2020-0 Yes [id number] 250mg Take 1 Un you 250 mg 6-30 tablet by ity of tablet 00:00: mouth 2 00 (two) Medical times Branch daily. fenofibrate 2020-0 Yes [id number] 145mg Take 1 [facility] 145 mg 6-30 tablet by ity of tablet 00:00: mouth [place] 00 daily. Medical Branch lipase-prot 2020-0 Yes [id number] 3{capsu Take 3 [facility] ease-amylas 6-30 le} capsules ity of e 00:00: by mouth 3 [place] 12,000-38,0 00 (three) Medic al 00 -60,000 times Branch unit daily with capsule meals. ursodioL 2020-0 Yes [id number] 250mg Take 1 Un you 250 mg 6-30 tablet by ity of tablet 00:00: mouth 2 00 (two) Medical times Branch daily. fenofibrate 2020-0 Yes [id number] 145mg Take 1 [facility] 145 mg 6-30 tablet by ity of tablet 00:00: mouth [place] 00 daily. Medical Branch lipase-prot 2020-0 Yes [id number] 3{capsu Take 3 [facility] ease-amylas 6-30 le} capsules ity of e 00:00: by mouth 3 [place] 12,000-38,0 00 (three) Medic al 00 -60,000 times Branch unit daily with capsule meals. ursodioL 2020-0 Yes [id number] 250mg Take 1 Un you 250 mg 6-30 tablet by ity of tablet 00:00: mouth 2 [place] 00 (two) Medical times Branch daily. fenofibrate 2020-0 Yes [id number] 145mg Take 1 [facility] 145 mg 6-30 tablet by ity of tablet 00:00: mouth [place] 00 daily. Medical Branch lipase-prot 2020-0 Yes [id number] 3{capsu Take 3 [facility] ease-amylas 6-30 le} capsules ity of e 00:00: by mouth 3 [place] 12,000-38,0 00 (three) Medic al 00 -60,000 times Branch unit daily with capsule meals. ursodioL 2020-0 Yes [id number] 250mg Take 1 Un you 250 mg 6-30 tablet by ity of tablet 00:00: mouth 2 [place] 00 (two) Medical times Branch daily. fenofibrate 2020-0 Yes [id number] 145mg Take 1 [facility] 145 mg 6-30 tablet by ity of tablet 00:00: mouth [place] 00 daily. Medical Branch lipase-prot 2020-0 Yes [id number] 3{capsu Take 3 [facility] ease-amylas 6-30 le} capsules ity of e 00:00: by mouth 3 [place] 12,000-38,0 00 (three) Medic al 00 -60,000 times Branch unit daily with capsule meals. ursodioL 2020-0 Yes [id number] 250mg Take 1 Un you 250 mg 6-30 tablet by ity of tablet 00:00: mouth 2 00 (two) Medical times Branch daily. fenofibrate 2020-0 Yes [id number] 145mg Take 1 [facility] 145 mg 6-30 tablet by ity of tablet 00:00: mouth [place] 00 daily. Medical Branch lipase-prot 2020-0 Yes [id number] 3{capsu Take 3 [facility] ease-amylas 6-30 le} capsules ity of e 00:00: by mouth 3 [place] 12,000-38,0 00 (three) Medic al 00 -60,000 times Branch unit daily with capsule meals. ursodioL 2020-0 Yes [id number] 250mg Take 1 Un you 250 mg 6-30 tablet by ity of tablet 00:00: mouth 2 [place] 00 (two) Medical times Branch daily. fenofibrate 2020-0 Yes [id number] 145mg Take 1 [facility] 145 mg 6-30 tablet by ity of tablet 00:00: mouth [place] 00 daily. Medical Branch lipase-prot 2020-0 Yes [id number] 3{capsu Take 3 [facility] ease-amylas 6-30 le} capsules ity of e 00:00: by mouth 3 [place] 12,000-38,0 00 (three) Medic al 00 -60,000 times Branch unit daily with capsule meals. ursodioL 2020-0 Yes [id number] 250mg Take 1 Un you 250 mg 6-30 tablet by ity of tablet 00:00: mouth 2 00 (two) Medical times Branch daily. fenofibrate 2020-0 Yes [id number] 145mg Take 1 [facility] 145 mg 6-30 tablet by ity of tablet 00:00: mouth [place] 00 daily. Medical Branch lipase-prot 2020-0 Yes [id number] 3{capsu Take 3 [facility] ease-amylas 6-30 le} capsules ity of e 00:00: by mouth 3 [place] 12,000-38,0 00 (three) Medic al 00 -60,000 times Branch unit daily with capsule meals. ursodioL 2020-0 Yes [id number] 250mg Take 1 Un you 250 mg 6-30 tablet by ity of tablet 00:00: mouth 2 00 (two) Medical times Branch daily. fenofibrate 2020-0 Yes [id number] 145mg Take 1 [facility] 145 mg 6-30 tablet by ity of tablet 00:00: mouth 00 daily. Medical Branch lipase-prot 2020-0 Yes [id number] 3{capsu Take 3 [facility] ease-amylas 6-30 le} capsules ity of e 00:00: by mouth 3 [place] 12,000-38,0 00 (three) Medic al 00 -60,000 times Branch unit daily with capsule meals. ursodioL 2020-0 Yes [id number] 250mg Take 1 Un you 250 mg 6-30 tablet by ity of tablet 00:00: mouth 2 (two) Medical times Branch daily. fenofibrate 2020-0 Yes [id number] 145mg Take 1 [facility] 145 mg 6-30 tablet by ity of tablet 00:00: mouth [place] 00 daily. Medical Branch lipase-prot 2020-0 Yes [id number] 3{capsu Take 3 [facility] ease-amylas 6-30 le} capsules ity of e 00:00: by mouth 3 [place] 12,000-38,0 00 (three) Medic al 00 -60,000 times Branch unit daily with capsule meals. ursodioL 2020-0 Yes [id number] 250mg Take 1 Un you 250 mg 6-30 tablet by ity of tablet 00:00: mouth 2 00 (two) Medical times Branch daily. fenofibrate 2020-0 Yes [id number] 145mg Take 1 [facility] 145 mg 6-30 tablet by ity of tablet 00:00: mouth [place] 00 daily. Medical Branch lipase-prot 2020- Yes [id number] 3{capsu Take 3 [facility] ease-amylas 6-30 le} capsules ity of e 00:00: by mouth 3 [place] 12,000-38,0 00 (three) Medic al 00 -60,000 times Branch unit daily with capsule meals. ursodioL 2020- Yes [id number] 250mg Take 1 Un you 250 mg 6-30 tablet by ity of tablet 00:00: mouth 2 [place] 00 (two) Medical times Branch daily. fenofibrate 2020- Yes [id number] 145mg Take 1 [facility] 145 mg 6-30 tablet by ity of tablet 00:00: mouth [place] 00 daily. Medical Branch lipase-prot Yes [id number] 3{capsu Take 3 [facility] ease-amylas 6-30 le} capsules ity of e 00:00: by mouth 3 [place] 12,000-38,0 00 (three) Medic al 00 -60,000 times Branch unit daily with capsule meals. ursodioL Yes [id number] 250mg Take 1 Un you 250 mg 6-30 tablet by ity of tablet 00:00: mouth 2 00 (two) Medical times Branch daily. fenofibrate 2020- Yes [id number] 145mg Take 1 [facility] 145 mg 6-30 tablet by ity of tablet 00:00: mouth [place] 00 daily. Medical Branch lipase-prot 2020- Yes [id number] 3{capsu Take 3 [facility] ease-amylas 6-30 le} capsules ity of e 00:00: by mouth 3 [place] 12,000-38,0 00 (three) Medic al 00 -60,000 times Branch unit daily with capsule meals. ursodioL 2020-0 Yes [id number] 250mg Take 1 Un you 250 mg 6-30 tablet by ity of tablet 00:00: mouth 2 [place] 00 (two) Medical times Branch daily. fenofibrate 2020-0 Yes [id number] 145mg Take 1 [facility] 145 mg 6-30 tablet by ity of tablet 00:00: mouth [place] 00 daily. Medical Branch lipase-prot 2020- Yes [id number] 3{capsu Take 3 [facility] ease-amylas 6-30 le} capsules ity of e 00:00: by mouth 3 [place] 12,000-38,0 00 (three) Medic al 00 -60,000 times Branch unit daily with capsule meals. ursodioL Yes [id number] 250mg Take 1 Un you 250 mg 6-30 tablet by ity of tablet 00:00: mouth 2 [place] 00 (two) Medical times [place] daily. fenofibrate Yes [id number] 145mg Take 1 [facility] 145 mg 6-30 tablet by ity of tablet 00:00: mouth [place] 00 daily. Medical Branch lipase-prot Yes [id number] 3{capsu Take 3 [facility] ease-amylas 6-30 le} capsules ity of e 00:00: by mouth 3 [place] 12,000-38,0 00 (three) Medic al 00 -60,000 times Branch unit daily with capsule meals. ursodioL Yes [id number] 250mg Take 1 Un you 250 mg 6-30 tablet by ity of tablet 00:00: mouth 2 [place] 00 (two) Medical times [place] daily. morpHINE 2020- No 6mg 6 mg, Slow Un you injection 6 10-11 IV Push, ity of mg 22:15: 21:09 ONCE, 1 [place] 00 :00 dose, [facility] 10/11/20 at Branch 1715, STAT FENTanyl PF 2020- No 100ug 100 mcg, Univers (SUBLIMAZE 10-11 Slow IV ity o f (PF)) 20:00: 18:53 Push, [place] injection 00 :00 ONCE, 1 Medical 100 mcg dose, [facility] 10/11/20 at 1500, Routine ondansetron 2020- No 4mg 4 mg, Slow Univers (ZOFRAN 10-11 IV Push, ity of (PF)) 20:00: 18:54 ONCE, 1 [place] injection 4 00 :00 dose, [facility] Med ical mg 10/11/20 at Branch 1500, [place] morpHINE 2020- No 6mg 6 mg, Slow Un you injection 6 10-11 IV Push, ity of mg 16:45: 15:42 ONCE, 1 [place] 00 :00 dose, [facility] Medical 10/11/20 at Branch 1145, STAT FENTanyl PF 2020- No 100ug 100 mcg, Univers (SUBLIMAZE 10-11 Slow IV ity o f (PF)) 16:15: 15:06 Push, [place] injection 00 :00 ONCE, 1 Medical 100 mcg dose, [facility] 10/11/20 at 1115, Routine metoclopram 2020- No 10mg 10 mg, Uni vers selena HCl 10-11 Slow IV ity of (REGLAN) 16:15: 15:06 Push, [place] injection 00 :00 ONCE, 1 Medical 10 mg dose, [facility] 10/11/20 at 1115, [place] morpHINE 2020- No 4mg 4 mg, Slow Un you injection 4 10-05 IV Push, ity of mg 01:15: 00:15 ONCE, 1 [place] 00 :00 dose, [facility] 10/04/20 at Branch 2015, STAT ondansetron 2020- No 4mg 4 mg, Slow Univers (ZOFRAN 10-05 IV Push, ity of (PF)) 00:00: 23:22 ONCE, 1 [place] injection 4 00 :00 dose, [facility] Med ical mg 10/04/20 at Branch 1900, [place] FENTanyl PF 2020- No 50ug 50 mcg, Un you (SUBLIMAZE 10-05 Slow IV ity o f (PF)) 00:00: 23:22 Push, [place] injection 00 :00 ONCE, 1 Medical 50 mcg dose, [facility] 10/04/20 at 1900, STAT NaCl 0.9% 2020- No 1000mL at 999 Uni vers (NS) bolus 10-0423 mL/hr, ity of infusion 23:00: 01:20 1,000 mL, Archie as 1,000 mL 00 :00 IV Medical Infusion, [place] ONCE, 1 dose, [facility] 10/04/20 at 1800, [place] promethazin Yes [id number] 50mg Insert 1 Univers e 50 mg 10-04 Suppositor ity of suppository 00:00: [place] 00 rectum Medical every 6 Branch (six) hours as needed for Nausea and Vomiting (N/V). ondansetron Yes [id number] 4mg Take 1 Univers (ZOFRAN 6-22 tablet by ity of ODT) 4 mg 00:00: mouth [place] disintegrat 00 every 8 Medic al ing tablet (eight) Branch hours as needed for Nausea and Vomiting (N/V). promethazin Yes [id number] 50mg Insert 1 Univers e 50 mg 6-22 Suppositor ity of suppository 00:00: [place] 00 rectum Medical every 6 Branch (six) hours as needed for Nausea and Vomiting (N/V). promethazin Yes [id number] 50mg Insert 1 Univers e 50 mg 6-22 Suppositor ity of suppository 00:00: [place] 00 rectum Medical every 6 Branch (six) hours as needed for Nausea and Vomiting (N/V). promethazin Yes [id number] 50mg Insert 1 Univers e 50 mg 6-22 Suppositor ity of suppository 00:00: [place] 00 rectum Medical every 6 Branch (six) hours as needed for Nausea and Vomiting (N/V). promethazin Yes [id number] 50mg Insert 1 Univers e 50 mg 6-22 Suppositor ity of suppository 00:00: y [place] 00 rectum Medical every 6 Branch (six) hours as needed for Nausea and Vomiting (N/V). promethazin Yes [id number] 50mg Insert 1 Univers e 50 mg 6-22 Suppositor ity of suppository 00:00: y [place] 00 rectum Medical every 6 Branch (six) hours as needed for Nausea and Vomiting (N/V). promethazin Yes [id number] 50mg Insert 1 Univers e 50 mg 6-22 Suppositor ity of suppository 00:00: y [place] 00 rectum Medical every 6 Branch (six) hours as needed for Nausea and Vomiting (N/V). promethazin Yes [id number] 50mg Insert 1 Univers e 50 mg 6-22 Suppositor ity of suppository 00:00: y [place] 00 rectum Medical every 6 Branch (six) hours as needed for Nausea and Vomiting (N/V). promethazin Yes [id number] 50mg Insert 1 Univers e 50 mg 6-22 Suppositor ity of suppository 00:00: y into [place] 00 rectum Medical every 6 Branch (six) hours as needed for Nausea and Vomiting (N/V). promethazin Yes [id number] 50mg Insert 1 Univers e 50 mg 6-22 Suppositor ity of suppository 00:00: y [place] 00 rectum Medical every 6 Branch (six) hours as needed for Nausea and Vomiting (N/V). promethazin Yes [id number] 50mg Insert 1 Univers e 50 mg 6-22 Suppositor ity of suppository 00:00: y [place] 00 rectum Medical every 6 Branch (six) hours as needed for Nausea and Vomiting (N/V). promethazin Yes [id number] 50mg Insert 1 Univers e 50 mg 6-22 Suppositor ity of suppository 00:00: y into [place] 00 rectum Medical every 6 Branch (six) hours as needed for Nausea and Vomiting (N/V). promethazin Yes [id number] 50mg Insert 1 Univers e 50 mg 6-22 Suppositor ity of suppository 00:00: y into [place] 00 rectum Medical every 6 Branch (six) hours as needed for Nausea and Vomiting (N/V). promethazin Yes [id number] 50mg Insert 1 Univers e 50 mg 6-22 Suppositor ity of suppository 00:00: y into [place] 00 rectum Medical every 6 Branch (six) hours as needed for Nausea and Vomiting (N/V). promethazin Yes [id number] 50mg Insert 1 Univers e 50 mg 6-22 Suppositor ity of suppository 00:00: y into [place] 00 rectum Medical every 6 Branch (six) hours as needed for Nausea and Vomiting (N/V). promethazin Yes [id number] 50mg Insert 1 Univers e 50 mg 6-22 Suppositor ity of suppository 00:00: y into [place] 00 rectum Medical every 6 Branch (six) hours as needed for Nausea and Vomiting (N/V). promethazin Yes [id number] 50mg Insert 1 Univers e 50 mg 6-22 Suppositor ity of suppository 00:00: y into [place] 00 rectum Medical every 6 Branch (six) hours as needed for Nausea and Vomiting (N/V). ondansetron 2020- No [id number] 4mg Take 1 Univers (ZOFRAN 10-04 06-30 tablet by ity of ODT) 4 mg 00:00: 00:00 mouth [place] disintegrat 00 :00 every 8 Medic al ing tablet (eight) Branch hours as needed for Nausea and Vomiting (N/V). dexamethaso 2020- No 10mg 10 mg, Uni vers ne 08-05 Intramuscu ity of (DECADRON 14:30: 13:35 lar, ONCE, [place] PHOSPHATE) 00 :00 1 dose, Medica l injection Fri Branch 10 mg 08/05/20 at 0930, STAT diazePAM 2020- No 5mg 5 mg, Univers (VALIUM) 08-05 Oral, ity of tablet 5 mg 14:30: 13:36 ONCE, 1 [place] 00 :[place] dose, Fri Medical 08/05/20 at Branch 0930, [place] FENTanyl PF 2020- No 50ug 50 mcg, Un you (SUBLIMAZE 08-05 Intramuscu it y of (PF)) 14:30: 13:36 lar, ONCE, [place] injection 00 :00 1 dose, Medical 50 mcg Fri Branch 08/05/20 at 0930, Routine ondansetron 2020- No 4mg 4 mg, Univ ers (ZOFRAN-ODT 08-05 Oral, ity of ) 14:30: 13:36 ONCE, 1 [place] disintegrat 00 :00 dose, Fri Med ical ing tablet 08/05/20 at [facility] 4 mg 0930, Routine traZODone Yes 100mg Take 100 Uni vers 100 mg 4-05 mg by ity of tablet 13:30: mouth at [place] [address] bedtime. Medical Branch traZODone Yes 100mg Take 100 Uni vers 100 mg 4-05 mg by ity of tablet 13:30: mouth at [place] [address] bedtime. Medical Branch traZODone Yes 100mg Take 100 Uni vers 100 mg 4-05 mg by ity of tablet 13:30: mouth at [place] [address] bedtime. Medical Branch triamcinolo Yes PRN, [facility] ne 07-18 Starting ity of acetonide 12:07: 07/18/[place] (KENALOG) 00 at 0707, Medica l injection Until Branch Discontinu ed, Routine, Intra-op iohexoL Yes PRN, Univers (OMNIPAQUE 4-05 Starting ity o f 300-50 mL)) 12:07: 07/18/20 [place] injection 00 at 0707, Medica l Until Branch Discontinu ed, Routine, Intra-op lidocaine Yes PRN, Univers 1% 05 Starting ity of (XYLOCAINE) 12:07: Sat07/18/20 [place] 10 mg/mL (1 00 at 0707, Medi brandy %) Until Branch injection Discontinu ed, Routine, Intra-op triamcinolo 2020- No PRN, [facility] 07-18 Starting ity of acetonide 12:07: 15:30 [facility] 07/18/20 [place] (KENALOG) 00 :22 at 0707, Medica l injection Until [facility] h 07/18/20 at 1030, Routine, Intra-op iohexoL 2020- No PRN, Univers (OMNIPAQUE 05 -05 Starting ity of 300-50 mL)) 12:07: 15:30 [facility] 07/18/20 [place] injection 00 :22 at 0707, Medica l Until Mon Branch 07/18/20 at 1030, Routine, Intra-op lidocaine 2020- No PRN, Univers 1% 07-18 Starting ity of (XYLOCAINE) 12:07: 15:30 [facility] 07/18/20 [place] 10 mg/mL (1 00 :22 at 0707, Medi brandy %) Until Mon Branch injection 07/18/20 at 1030, Routine, Intra-op escitalopra 2020- No 20mg Take 20 mg Univers m oxalate 07-18 by mouth ity o f (LEXAPRO) 11:43: 00:00 at [place] 20 mg 22 :00 bedtime. Medical tablet Branch divalproex 2020-0 2020- No 500mg Take 500 U nivers (DEPAKOTE) 4-05 04-05 mg by ity of 500 mg EC 11:43: 00:00 mouth [place] tablet 22 :00 daily. Medical Branch chlordiazeP 2020-2020- No 10mg Take 10 mg Univers OXIDE 10 mg 4-05 04-05 by mouth 3 i ty of capsule 11:43: 00:00 (three) [place] 22 :00 times Medical daily. Branch lithium 2020- No 300mg Take 300 Univ ers carbonate 4-05 04-05 mg by ity of 300 mg 11:43: 00:00 mouth 2 [place] capsule 22 :00 (two) Medical times Branch daily. temazepam 2020- No 15mg Take 15 mg U nivers 15 mg 4-05 04-05 by mouth ity of capsule 11:: 00:00 at bedtime Ar[place] as 22 :00 as needed Medical for Branch Insomnia. ursodioL 2020- No 500mg Take 500 Uni vers 500 mg 4-05 04-05 mg by ity of tablet 11:: 00:00 mouth 2 [place] 22 :00 (two) Medical times Branch daily. escitalopra 2020- No 20mg Take 20 mg Univers m oxalate 4-05 04-05 by mouth ity o f (LEXAPRO) 11:43: 00:00 at [place] 20 mg 22 :00 bedtime. Medical tablet Branch divalproex 0 2020- No 500mg Take 500 U nivers (DEPAKOTE) 4-05 04-05 mg by ity of 500 mg EC 11:43: 00:00 mouth [place] tablet 22 :00 daily. Medical Branch chlordiazeP 2020-2020- No 10mg Take 10 mg Univers OXIDE 10 mg 4-05 04-05 by mouth 3 i ty of capsule 11:43: 00:00 (three) [place] 22 :00 times Medical daily. Branch lithium 2020-2020- No 300mg Take 300 Univ ers carbonate 4-05 04-05 mg by ity of 300 mg 11:43: 00:00 mouth 2 [place] capsule 22 :00 (two) Medical times Branch daily. temazepam 2020- No 15mg Take 15 mg U nivers 15 mg 4-05 04-05 by mouth ity of capsule 11:43: 00:00 at bedtime [place] as 22 :00 as needed Medical for Branch Insomnia. ursodioL 2020- No 500mg Take 500 Uni vers 500 mg 4-05 04-05 mg by ity of tablet 11:43: 00:00 mouth 2 [place] 22 :00 (two) Medical times Branch daily. LOSARTAN 2020- No 100mg Take 100 Uni vers POTASSIUM 4-05 04-05 mg by ity of (LOSARTAN 11:42: 00:00 mouth [place] ORAL) 27 :00 daily. Medical Branch gabapentin 2020- No 300mg Take 300 U nivers (NEURONTIN) 4-05 04-05 mg by ity of 300 mg 11:42: 00:00 mouth 3 [place] capsule 27 :00 (three) Medical times Branch daily. QUEtiapine 2020- No 400mg Take 400 U nivers (SEROQUEL) 4-05 04-05 mg by ity of 400 mg 11:42: 00:00 mouth at [place] tablet 27 :00 bedtime. Medical Branch tiZANidine 2020- No 4mg Take 4 mg U nivers 4 mg 4-05 04-05 by mouth 2 ity of capsule 11:42: 00:00 (two) [place] 27 :00 times Medical daily. Branch meloxicam 2020- No 7.5mg Take 7.5 Un you 7.5 mg 4-05 04-05 mg by ity of tablet 11:42: 00:00 mouth [place] 27 :00 daily. Medical Branch ARIPiprazol 2020- No 10mg Take 10 mg Univers e 10 mg 4-05 04-05 by mouth ity of tablet 11:42: 00:00 daily. [place] 27 :00 Medical Branch carvediloL 2020- No 12.5mg Take 12.5 Univers 12.5 mg 4-05 04-05 mg by ity of tablet 11:42: 00:00 mouth 2 [place] 27 :00 (two) Medical times Branch daily with meals. LOSARTAN 2020- No 100mg Take 100 Uni vers POTASSIUM 4-05 04-05 mg by ity of (LOSARTAN 11:42: 00:00 mouth [place] ORAL) 27 :00 daily. Medical Branch gabapentin 2020- No 300mg Take 300 U nivers (NEURONTIN) 4-05 04-05 mg by ity of 300 mg 11:42: 00:00 mouth 3 [place] capsule 27 :00 (three) Medical times Branch daily. QUEtiapine 2020- No 400mg Take 400 U nivers (SEROQUEL) 4-05 04-05 mg by ity of 400 mg 11:42: 00:00 mouth at [place] tablet 27 :00 bedtime. Medical Branch tiZANidine 2020- No 4mg Take 4 mg U nivers 4 mg 4-05 04-05 by mouth 2 ity of capsule 11:42: 00:00 (two) [place] 27 :00 times Medical daily. Branch meloxicam 2020- No 7.5mg Take 7.5 Un you 7.5 mg 4-05 04-05 mg by ity of tablet 11:42: 00:00 mouth [place] 27 :00 daily. Medical Branch ARIPiprazol 2020- No 10mg Take 10 mg Univers e 10 mg 4-05 04-05 by mouth ity of tablet 11:42: 00:00 daily. [place] 27 :00 Medical Branch carvediloL 2020- No 12.5mg Take 12.5 Univers 12.5 mg 4-05 04-05 mg by ity of tablet 11:42: 00:00 mouth 2 [place] 27 :00 (two) Medical times Branch daily with meals. traZODone Yes 100mg Take 100 Uni vers 100 mg 4-05 mg by ity of tablet 11:28: mouth at [place] 50 bedtime. Medical Branch losartan Yes 100mg 100 mg, Unive rs (COZAAR) 07-08 Oral, ity of tablet 100 14:00: DAILY, [place] mg 00 First dose Medical on Sat Branch 07/08/20 at 0900, Until Discontinu ed, Routine ondansetron 2020- No 4mg 4 mg, Slow Univers (ZOFRAN 07-08-26 IV Push, ity of (PF)) 03:15: 02:29 ONCE, 1 [place] injection 4 00 :00 dose, [place] Med ical mg 07/07/20 at Branch 221, [place] morpHINE 2020-0 2020- No 4mg 4 mg, Slow Un you injection 4 07-08 IV Push, ity of mg 03:15: 02:28 ONCE, 1 [place] 00 :00 dose, [facility] Medical 07/07/20 at Branch 221, STAT morpHINE 2020-0 2020- No 4mg 4 mg, Slow Un you injection 4 07-08 IV Push, ity of mg 01:45: 01:05 ONCE, 1 [place] 00 :00 dose, [facility] Medical 07/07/20 at Branch 2044, STAT iohexol 2020-0 2020- No [id number] 120mL 120 mL, Univers (OMNIPAQUE 07-08 Intravenou it y of 350 01:00: 00:55 s, ONCE, 1 [place] BULK-150 00 :00 dose, [place] Medica l mL) 07/07/20 at [place] injection 1999, 120 mL Routine NaCl 0.9% 2020- No 1000mL at [facility] Uni vers (NS) bolus 07-08 mL/hr, ity of infusion 01:00: 02:24 1,000 mL, [place] as 1,000 mL 00 :00 IV Medical Infusion, [place] ONCE, 1 dose, [facility] 07/07/20 at 1999, STAT ondansetron 2020-0 2020- No 4mg 4 mg, Slow Univers (ZOFRAN 07-08 IV Push, ity of (PF)) 01:00: 00:25 ONCE, 1 [place] injection 4 00 :00 dose, [place] Med ical mg 07/07/20 at Branch 1999, [place] ondansetron 2020-0 Yes [id number] 4mg Take 1 Univers (ZOFRAN 3-25 tablet by ity of ODT) 4 mg 00:00: mouth [place] disintegrat 00 every 8 Medic al ing tablet (eight) Branch hours as needed for Nausea and Vomiting (N/V). ondansetron 2020-0 Yes [id number] 4mg Take 1 Univers (ZOFRAN 3-25 tablet by ity of ODT) 4 mg 00:00: mouth [place] disintegrat 00 every 8 Medic al ing tablet (eight) Branch hours as needed for Nausea and Vomiting (N/V). ondansetron 2021-0 Yes [id number] 4mg Take 1 Univers (ZOFRAN 3-25 tablet by ity of ODT) 4 mg 00:00: mouth [place] disintegrat 00 every 8 Medic al ing tablet (eight) Branch hours as needed for Nausea and Vomiting (N/V). ondansetron 2021-0 Yes [id number] 4mg Take 1 Univers (ZOFRAN 3-25 tablet by ity of ODT) 4 mg 00:00: mouth [place] disintegrat 00 every 8 Medic al ing tablet (eight) Branch hours as needed for Nausea and Vomiting (N/V). ondansetron 2021-0 Yes [id number] 4mg Take 1 Univers (ZOFRAN 3-25 tablet by ity of ODT) 4 mg 00:00: mouth [place] disintegrat 00 every 8 Medic al ing tablet (eight) Branch hours as needed for Nausea and Vomiting (N/V). ondansetron 2021-0 Yes [id number] 4mg Take 1 Univers (ZOFRAN 3-25 tablet by ity of ODT) 4 mg 00:00: mouth [place] disintegrat 00 every 8 Medic al ing tablet (eight) Branch hours as needed for Nausea and Vomiting (N/V). ondansetron 2021-0 Yes [id number] 4mg Take 1 Univers (ZOFRAN 3-25 tablet by ity of ODT) 4 mg 00:00: mouth [place] disintegrat 00 every 8 Medic al ing tablet (eight) Branch hours as needed for Nausea and Vomiting (N/V). ondansetron 2021-0 Yes [id number] 4mg Take 1 Univers (ZOFRAN 3-25 tablet by ity of ODT) 4 mg 00:00: mouth [place] disintegrat 00 every 8 Medic al ing tablet (eight) Branch hours as needed for Nausea and Vomiting (N/V). ondansetron 2021-0 Yes [id number] 4mg Take 1 Univers (ZOFRAN 3-25 tablet by ity of ODT) 4 mg 00:00: mouth [place] disintegrat 00 every 8 Medic al ing tablet (eight) Branch hours as needed for Nausea and Vomiting (N/V). ondansetron 2021-0 Yes [id number] 4mg Take 1 Univers (ZOFRAN 3-25 tablet by ity of ODT) 4 mg 00:00: mouth [place] disintegrat 00 every 8 Medic al ing tablet (eight) Branch hours as needed for Nausea and Vomiting (N/V). ondansetron 2021-0 Yes [id number] 4mg Take 1 Univers (ZOFRAN 3-25 tablet by ity of ODT) 4 mg 00:00: mouth [place] disintegrat 00 every 8 Medic al ing tablet (eight) Branch hours as needed for Nausea and Vomiting (N/V). ondansetron 2021-0 Yes [id number] 4mg Take 1 Univers (ZOFRAN 3-25 tablet by ity of ODT) 4 mg 00:00: mouth [place] disintegrat 00 every 8 Medic al ing tablet (eight) Branch hours as needed for Nausea and Vomiting (N/V). ondansetron 2021-0 Yes [id number] 4mg Take 1 Univers (ZOFRAN 3-25 tablet by ity of ODT) 4 mg 00:00: mouth [place] disintegrat 00 every 8 Medic al ing tablet (eight) Branch hours as needed for Nausea and Vomiting (N/V). ondansetron 2021-0 Yes [id number] 4mg Take 1 Univers (ZOFRAN 3-25 tablet by ity of ODT) 4 mg 00:00: mouth [place] disintegrat 00 every 8 Medic al ing tablet (eight) Branch hours as needed for Nausea and Vomiting (N/V). ondansetron 2021-0 Yes [id number] 4mg Take 1 Univers (ZOFRAN 3-25 tablet by ity of ODT) 4 mg 00:00: mouth [place] disintegrat 00 every 8 Medic al ing tablet (eight) Branch hours as needed for Nausea and Vomiting (N/V). ondansetron 2021-0 Yes [id number] 4mg Take 1 Univers (ZOFRAN 3-25 tablet by ity of ODT) 4 mg 00:00: mouth [place] disintegrat 00 every 8 Medic al ing tablet (eight) Branch hours as needed for Nausea and Vomiting (N/V). ondansetron 2021-0 Yes [id number] 4mg Take 1 Univers (ZOFRAN 3-25 tablet by ity of ODT) 4 mg 00:00: mouth [place] disintegrat 00 every 8 Medic al ing tablet (eight) Branch hours as needed for Nausea and Vomiting (N/V). ondansetron 2020-0 Yes [id number] 4mg Take 1 Univers (ZOFRAN 3-25 tablet by ity of ODT) 4 mg 00:00: mouth [place] disintegrat 00 every 8 Medic al ing tablet (eight) Branch hours as needed for Nausea and Vomiting (N/V). ondansetron 202-0 Yes [id number] 4mg Take 1 Univers (ZOFRAN 3-25 tablet by ity of ODT) 4 mg 00:00: mouth [place] disintegrat 00 every 8 Medic al ing tablet (eight) Branch hours as needed for Nausea and Vomiting (N/V). LOSARTAN 2020-0 Yes 100mg Take 100 Univ ers POTASSIUM 3-22 mg by ity of (LOSARTAN 13:47: mouth [place] ORAL) 04 daily. Medical Branch gabapentin 0 Yes 300mg Take 300 Un you (NEURONTIN) 3-22 mg by ity of 300 mg 13:47: mouth 3 [place] capsule 04 (three) Medical times Branch daily. QUEtiapine 0 Yes 400mg Take 400 Un you (SEROQUEL) 3-22 mg by ity of 400 mg 13:47: mouth at [place] tablet 04 bedtime. Medical Branch escitalopra 0 Yes 20mg Take 20 mg Univers m oxalate 3-22 by mouth ity of (LEXAPRO) 13:47: at [place] 20 mg 04 bedtime. Medical tablet Branch divalproex 0 Yes 500mg Take 500 Un you (DEPAKOTE) 3-22 mg by ity of 500 mg EC 13:47: mouth [place] tablet 04 daily. Medical Branch tiZANidine 0 Yes 4mg Take 4 mg Un you 4 mg 3-22 by mouth 2 ity of capsule 13:47: (two) [place] 04 times Medical daily. Branch chlordiazeP 2020-0 Yes 10mg Take 10 mg Univers OXIDE 10 mg 3-22 by mouth 3 it y of capsule 13:47: (three) [place] 04 times Medical daily. Branch meloxicam 0 Yes 7.5mg Take 7.5 Uni vers 7.5 mg 3-22 mg by ity of tablet 13:47: mouth [place] 04 daily. Medical Branch lithium 2020-0 Yes 300mg Take 300 Unive rs carbonate 3-22 mg by ity of 300 mg 13:47: mouth 2 [place] capsule 04 (two) Medical times Branch daily. temazepam 0 Yes 15mg Take 15 mg Un you 15 mg 3-22 by mouth ity of capsule 13:47: at bedtime [place] 04 as needed Medical for Branch Insomnia. ursodioL 0 Yes 500mg Take 500 Univ ers 500 mg 3-22 mg by ity of tablet 13:47: mouth 2 [place] 04 (two) Medical times Branch daily. traZODone 0 Yes 100mg Take 100 Uni vers 100 mg 3-22 mg by ity of tablet 13:47: mouth at [place] 04 bedtime. Medical Branch ARIPiprazol 0 Yes 10mg Take 10 mg Univers e 10 mg 3-22 by mouth ity of tablet 13:47: daily. Medical Branch carvediloL 0 Yes 12.5mg Take 12.5 Univers 12.5 mg 3-22 mg by ity of tablet 13:47: mouth 2 [place] 04 (two) Medical times Branch daily with meals. LOSARTAN 0 Yes 100mg Take 100 Univ ers POTASSIUM 3-22 mg by ity of (LOSARTAN 13:47: mouth [place] ORAL) 04 daily. Medical Branch gabapentin 0 Yes 300mg Take 300 Un you (NEURONTIN) 3-22 mg by ity of 300 mg 13:47: mouth 3 [place] capsule 04 (three) Medical times Branch daily. QUEtiapine 0 Yes 400mg Take 400 Un you (SEROQUEL) 3-22 mg by ity of 400 mg 13:47: mouth at [place] tablet 04 bedtime. Medical Branch escitalopra 0 Yes 20mg Take 20 mg Univers m oxalate 3-22 by mouth ity of (LEXAPRO) 13:47: at [place] 20 mg 04 bedtime. Medical tablet Branch divalproex 0 Yes 500mg Take 500 Un you (DEPAKOTE) 3-22 mg by ity of 500 mg EC 13:47: mouth [place] tablet 04 daily. Medical Branch tiZANidine Yes 4mg Take 4 mg Un you 4 mg 3-22 by mouth 2 ity of capsule 13:47: (two) [place] 04 times Medical daily. Branch chlordiazeP 0 Yes 10mg Take 10 mg Univers OXIDE 10 mg 3-22 by mouth 3 it y of capsule 13:47: (three) [place] 04 times Medical daily. Branch meloxicam Yes 7.5mg Take 7.5 Uni vers 7.5 mg 3-22 mg by ity of tablet 13:47: mouth [place] 04 daily. Medical Branch lithium Yes 300mg Take 300 Unive rs carbonate 3-22 mg by ity of 300 mg 13:47: mouth 2 [place] capsule 04 (two) Medical times Branch daily. temazepam 0 Yes 15mg Take 15 mg Un you 15 mg 3-22 by mouth ity of capsule 13:47: at bedtime [place] 04 as needed Medical for Branch Insomnia. ursodioL Yes 500mg Take 500 Univ ers 500 mg 3-22 mg by ity of tablet 13:47: mouth 2 [place] 04 (two) Medical times Branch daily. traZODone Yes 100mg Take 100 Uni vers 100 mg 3-22 mg by ity of tablet 13:47: mouth at [place] 04 bedtime. Medical Branch ARIPiprazol Yes 10mg Take 10 mg Univers e 10 mg 3-22 by mouth ity of tablet 13:47: daily. Medical Branch carvediloL Yes 12.5mg Take 12.5 Univers 12.5 mg 3-22 mg by ity of tablet 13:47: mouth 2 [place] 04 (two) Medical times Branch daily with meals. LOSARTAN Yes 100mg Take 100 Univ ers POTASSIUM 3-22 mg by ity of (LOSARTAN 13:47: mouth [place] ORAL) 04 daily. Medical Branch gabapentin 0 Yes 300mg Take 300 Un you (NEURONTIN) 3-22 mg by ity of 300 mg 13:47: mouth 3 [place] capsule 04 (three) Medical times Branch daily. QUEtiapine 0 Yes 400mg Take 400 Un you (SEROQUEL) 3-22 mg by ity of 400 mg 13:47: mouth at [place] tablet 04 bedtime. Medical Branch escitalopra Yes 20mg Take 20 mg Univers m oxalate 3-22 by mouth ity of (LEXAPRO) 13:47: at [place] 20 mg 04 bedtime. Medical tablet Branch divalproex 2021-0 Yes 500mg Take 500 Un you (DEPAKOTE) 3-22 mg by ity of 500 mg EC 13:47: mouth [place] tablet 04 daily. Medical Branch tiZANidine 0 Yes 4mg Take 4 mg Un you 4 mg 3-22 by mouth 2 ity of capsule 13:47: (two) [place] 04 times Medical daily. Branch chlordiazeP 0 Yes 10mg Take 10 mg Univers OXIDE 10 mg 3-22 by mouth 3 it y of capsule 13:47: (three) [place] 04 times Medical daily. Branch meloxicam 0 Yes 7.5mg Take 7.5 Uni vers 7.5 mg 3-22 mg by ity of tablet 13:47: mouth [place] 04 daily. Medical Branch lithium 0 Yes 300mg Take 300 Unive rs carbonate 3-22 mg by ity of 300 mg 13:47: mouth 2 [place] capsule 04 (two) Medical times Branch daily. temazepam 0 Yes 15mg Take 15 mg Un you 15 mg 3-22 by mouth ity of capsule 13:47: at bedtime [place] 04 as needed Medical for Branch Insomnia. ursodioL 0 Yes 500mg Take 500 Univ ers 500 mg 3-22 mg by ity of tablet 13:47: mouth 2 [place] 04 (two) Medical times Branch daily. traZODone 0 Yes 100mg Take 100 Uni vers 100 mg 3-22 mg by ity of tablet 13:47: mouth at [place] 04 bedtime. Medical Branch ARIPiprazol 0 Yes 10mg Take 10 mg Univers e 10 mg 3-22 by mouth ity of tablet 13:47: daily. 04 Medical Branch carvediloL 0 Yes 12.5mg Take 12.5 Univers 12.5 mg 3-22 mg by ity of tablet 13:47: mouth 2 [place] 04 (two) Medical times Branch daily with meals. LOSARTAN 2020-0 Yes 100mg Take 100 Univ ers POTASSIUM 3-22 mg by ity of (LOSARTAN 13:47: mouth [place] ORAL) 04 daily. Medical Branch gabapentin 2020-0 Yes 300mg Take 300 Un you (NEURONTIN) 3-22 mg by ity of 300 mg 13:47: mouth 3 [place] capsule 04 (three) Medical times Branch daily. QUEtiapine 2021-0 Yes 400mg Take 400 Un you (SEROQUEL) 3-22 mg by ity of 400 mg 13:47: mouth at [place] tablet 04 bedtime. Medical Branch escitalopra 0 Yes 20mg Take 20 mg Univers m oxalate 3-22 by mouth ity of (LEXAPRO) 13:47: at [place] 20 mg 04 bedtime. Medical tablet Branch divalproex 0 Yes 500mg Take 500 Un you (DEPAKOTE) 3-22 mg by ity of 500 mg EC 13:47: mouth [place] tablet 04 daily. Medical Branch tiZANidine 0 Yes 4mg Take 4 mg Un you 4 mg 3-22 by mouth 2 ity of capsule 13:47: (two) [place] times Medical daily. Branch chlordiazeP 0 Yes 10mg Take 10 mg Univers OXIDE 10 mg 3-22 by mouth 3 it y of capsule 13:47: (three) [place] times Medical daily. Branch meloxicam 0 Yes 7.5mg Take 7.5 Uni vers 7.5 mg 3-22 mg by ity of tablet 13:47: mouth [place] 04 daily. Medical Branch lithium Yes 300mg Take 300 Unive rs carbonate 3-22 mg by ity of 300 mg 13:47: mouth 2 [place] capsule 04 (two) Medical times Branch daily. temazepam 0 Yes 15mg Take 15 mg Un you 15 mg 3-22 by mouth ity of capsule 13:47: at bedtime [place] 04 as needed Medical for Branch Insomnia. ursodioL 0 Yes 500mg Take 500 Univ ers 500 mg 3-22 mg by ity of tablet 13:47: mouth 2 [place] 04 (two) Medical times Branch daily. traZODone 0 Yes 100mg Take 100 Uni vers 100 mg 3-22 mg by ity of tablet 13:47: mouth at [place] 04 bedtime. Medical Branch ARIPiprazol 0 Yes 10mg Take 10 mg Univers e 10 mg 3-22 by mouth ity of tablet 13:47: daily. Medical Branch carvediloL 2020-0 Yes 12.5mg Take 12.5 Univers 12.5 mg 3-22 mg by ity of tablet 13:47: mouth 2 [place] 04 (two) Medical times Branch daily with meals. lactated 2020-0 Yes 1000mL at 100 Unive rs ringers IV 3-22 mL/hr, ity of infusion 13:15: 1,000 mL, [place] 1,000 mL 00 IV Medical Infusion, Branch CONTINUOUS , Starting Sat07/04/20 at 0815, Until Discontinu ed, Routine, PACU FENTanyl PF 2020-0 Yes 25ug 25 mcg, Uni vers (SUBLIMAZE 3-22 Slow IV ity of (PF)) 13:10: Push, [place] injection 11 Q5MIN PRN, Medi brandy 25 mcg 4 doses, Branch Starting Sat07/04/20 at 0810, Until Discontinu ed, Routine, Pain (scale 7-10), PACU FENTanyl PF 2020-0 Yes 25ug 25 mcg, Uni vers (SUBLIMAZE 3-22 Slow IV ity of (PF)) 13:10: Push, [place] injection 11 Q5MIN PRN, Medi brandy 25 mcg 4 doses, Branch Starting Sat07/04/20 at 0810, Until Discontinu ed, Routine, Pain (scale 4-6), PACU ondansetron 0 Yes 4mg 4 mg, Slow Univers (ZOFRAN 3-22 IV Push, ity of (PF)) 13:10: PRN, 1 [place] injection 4 11 dose, Medical mg Starting Branch Sat07/04/20 at 0810, Until Discontinu ed, Routine, Nausea and Vomiting (N/V), PACU ceFAZolin 0 Yes 1000mg 1,000 mg, U nivers (ANCEF) 3-22 IV ity of 1,000 mg in 12:00: Piggyback, [place] NaCl 0.9% 00 Q8H ABX, Medica l (NS) 50 mL First dose Bra nch MINI-BAG on Sat07/04/20 at 0700, Until Discontinu ed, 50 mL, DSU Pre-op
Reason for Anti-Infec tive: Surgical Prophylaxi s
Surgi brandy Prophylaxi s: Orthopaedi c
Durat ion of therapy: within 24 hours of surgery lactated 2020-0 Yes 1000mL at 75 Univer s ringers IV 3-08 mL/hr, ity of infusion 16:30: 1,000 [place] 1,000 [place] 00 IV Medical Infusion, Branch CONTINUOUS , Starting 06/20/20 at 1030, Until Discontinu ed, Routine, PACU LOSARTAN 2020-0 Yes 100mg Take 100 Univ ers POTASSIUM 3-08 mg by ity of (LOSARTAN 16:25: mouth [place] ORAL) 42 daily. Medical Branch gabapentin 0 Yes 300mg Take 300 Un you (NEURONTIN) 3-08 mg by ity of 300 mg 16:25: mouth 3 [place] capsule 42 (three) Medical times Branch daily. QUEtiapine 2020-0 Yes 400mg Take 400 Un you (SEROQUEL) 3-08 mg by ity of 400 mg 16:25: mouth at [place] tablet 42 bedtime. Medical Branch escitalopra 0 Yes 20mg Take 20 mg Univers m oxalate 3-08 by mouth ity of (LEXAPRO) 16:25: at [place] 20 mg 42 bedtime. Medical tablet Branch divalproex 0 Yes 500mg Take 500 Un you (DEPAKOTE) 3-08 mg by ity of 500 mg EC 16:25: mouth [place] tablet 42 daily. Medical Branch tiZANidine 0 Yes 4mg Take 4 mg Un you 4 mg 3-08 by mouth 2 ity of capsule 16:25: (two) [place] 42 times Medical daily. Branch chlordiazeP 0 Yes 10mg Take 10 mg Univers OXIDE 10 mg 3-08 by mouth 3 it y of capsule 16:25: (three) [place] 42 times Medical daily. Branch meloxicam 0 Yes 7.5mg Take 7.5 Uni vers 7.5 mg 3-08 mg by ity of tablet 16:25: mouth [place] 42 daily. Medical Branch lithium 0 Yes 300mg Take 300 Unive rs carbonate 3-08 mg by ity of 300 mg 16:25: mouth 2 [place] capsule 42 (two) Medical times Branch daily. temazepam 2020-0 Yes 15mg Take 15 mg Un you 15 mg 3-08 by mouth ity of capsule 16:25: at bedtime [place] 42 as needed Medical for Branch Insomnia. ursodioL 2020-0 Yes 500mg Take 500 Univ ers 500 mg 3-08 mg by ity of tablet 16:25: mouth 2 [place] 42 (two) Medical times Branch daily. LOSARTAN 2020-0 Yes 100mg Take 100 Univ ers POTASSIUM 3-08 mg by ity of (LOSARTAN 16:25: mouth [place] ORAL) 42 daily. Medical Branch gabapentin 2020-0 Yes 300mg Take 300 Un you (NEURONTIN) 3-08 mg by ity of 300 mg 16:25: mouth 3 [place] capsule 42 (three) Medical times Branch daily. QUEtiapine 2020-0 Yes 400mg Take 400 Un you (SEROQUEL) 3-08 mg by ity of 400 mg 16:25: mouth at [place] tablet 42 bedtime. Medical Branch escitalopra 0 Yes 20mg Take 20 mg Univers m oxalate 3-08 by mouth ity of (LEXAPRO) 16:25: at [place] 20 mg 42 bedtime. Medical tablet Branch divalproex 0 Yes 500mg Take 500 Un you (DEPAKOTE) 3-08 mg by ity of 500 mg EC 16:25: mouth [place] tablet 42 daily. Medical Branch tiZANidine 0 Yes 4mg Take 4 mg Un you 4 mg 3-08 by mouth 2 ity of capsule 16:25: (two) [place] 42 times Medical daily. Branch chlordiazeP 0 Yes 10mg Take 10 mg Univers OXIDE 10 mg 3-08 by mouth 3 it y of capsule 16:25: (three) [place] 42 times Medical daily. Branch meloxicam 0 Yes 7.5mg Take 7.5 Uni vers 7.5 mg 3-08 mg by ity of tablet 16:25: mouth [place] 42 daily. Medical Branch lithium 0 Yes 300mg Take 300 Unive rs carbonate 3-08 mg by ity of 300 mg 16:25: mouth 2 [place] capsule 42 (two) Medical times Branch daily. temazepam 2020-0 Yes 15mg Take 15 mg Un you 15 mg 3-08 by mouth ity of capsule 16:25: at bedtime [place] 42 as needed Medical for Branch Insomnia. ursodioL 2020-0 Yes 500mg Take 500 Univ ers 500 mg 3-08 mg by ity of tablet 16:25: mouth 2 [place] 42 (two) Medical times Branch daily. LOSARTAN 2020-0 Yes 100mg Take 100 Univ ers POTASSIUM 3-08 mg by ity of (LOSARTAN 16:25: mouth [place] ORAL) 42 daily. Medical Branch gabapentin 2021-0 Yes 300mg Take 300 Un you (NEURONTIN) 3-08 mg by ity of 300 mg 16:25: mouth 3 [place] capsule 42 (three) Medical times Branch daily. QUEtiapine 2020-0 Yes 400mg Take 400 Un you (SEROQUEL) 3-08 mg by ity of 400 mg 16:25: mouth at [place] tablet 42 bedtime. Medical Branch escitalopra 2020-0 Yes 20mg Take 20 mg Univers m oxalate 3-08 by mouth ity of (LEXAPRO) 16:25: at [place] 20 mg 42 bedtime. Medical tablet Branch divalproex 2020-0 Yes 500mg Take 500 Un you (DEPAKOTE) 3-08 mg by ity of 500 mg EC 16:25: mouth [place] tablet 42 daily. Medical Branch tiZANidine 0 Yes 4mg Take 4 mg Un you 4 mg 3-08 by mouth 2 ity of capsule 16:25: (two) [place] 42 times Medical daily. Branch chlordiazeP 2020-0 Yes 10mg Take 10 mg Univers OXIDE 10 mg 3-08 by mouth 3 it y of capsule 16:25: (three) [place] 42 times Medical daily. Branch meloxicam 2020-0 Yes 7.5mg Take 7.5 Uni vers 7.5 mg 3-08 mg by ity of tablet 16:25: mouth [place] 42 daily. Medical Branch lithium 0 Yes 300mg Take 300 Unive rs carbonate 3-08 mg by ity of 300 mg 16:25: mouth 2 [place] capsule 42 (two) Medical times Branch daily. temazepam 2020-0 Yes 15mg Take 15 mg Un you 15 mg 3-08 by mouth ity of capsule 16:25: at bedtime [place] 42 as needed Medical for Branch Insomnia. ursodioL 2020-0 Yes 500mg Take 500 Univ ers 500 mg 3-08 mg by ity of tablet 16:25: mouth 2 [place] 42 (two) Medical times Branch daily. LOSARTAN 2020-0 Yes 100mg Take 100 Univ ers POTASSIUM 3-08 mg by ity of (LOSARTAN 16:25: mouth [place] ORAL) 42 daily. Medical Branch gabapentin 2020-0 Yes 300mg Take 300 Un you (NEURONTIN) 3-08 mg by ity of 300 mg 16:25: mouth 3 [place] capsule 42 (three) Medical times Branch daily. QUEtiapine 0 Yes 400mg Take 400 Un you (SEROQUEL) 3-08 mg by ity of 400 mg 16:25: mouth at [place] tablet 42 bedtime. Medical Branch escitalopra 0 Yes 20mg Take 20 mg Univers m oxalate 3-08 by mouth ity of (LEXAPRO) 16:25: at [place] 20 mg 42 bedtime. Medical tablet Branch divalproex 0 Yes 500mg Take 500 Un you (DEPAKOTE) 3-08 mg by ity of 500 mg EC 16:25: mouth [place] tablet 42 daily. Medical Branch tiZANidine 0 Yes 4mg Take 4 mg Un you 4 mg 3-08 by mouth 2 ity of capsule 16:25: (two) [place] 42 times Medical daily. Branch chlordiazeP Yes 10mg Take 10 mg Univers OXIDE 10 mg 3-08 by mouth 3 it y of capsule 16:25: (three) [place] 42 times Medical daily. Branch meloxicam 0 Yes 7.5mg Take 7.5 Uni vers 7.5 mg 3-08 mg by ity of tablet 16:25: mouth [place] 42 daily. Medical Branch lithium 0 Yes 300mg Take 300 Unive rs carbonate 3-08 mg by ity of 300 mg 16:25: mouth 2 [place] capsule 42 (two) Medical times Branch daily. temazepam 0 Yes 15mg Take 15 mg Un you 15 mg 3-08 by mouth ity of capsule 16:25: at bedtime [facility] s 42 as needed Medical for Branch Insomnia. ursodioL 0 Yes 500mg Take 500 Univ ers 500 mg 3-08 mg by ity of tablet 16:25: mouth 2 [place] 42 (two) Medical times Branch daily. ondansetron 0 Yes 4mg 4 mg, Slow Univers (ZOFRAN 3-08 IV Push, ity of (PF)) 16:19: PRN, 1 [place] injection 4 59 dose, Medical mg Starting Branch 06/20/20 at 1019, Until Discontinu ed, Routine, Nausea and Vomiting (N/V), PACU triamcinolo 2020-0 Yes PRN, Univer s ne 3-08 Starting ity of acetonide 14:10: Sat06/20/20 [place] (KENALOG) 00 at 0810, Medica l injection Until Branch Discontinu ed, Routine, Intra-op iohexoL Yes PRN, Univers (OMNIPAQUE 08 Starting ity o f 300-50 mL)) 14:10: Sat06/20/20 [place] injection 00 at 0810, Medica l Until Branch Discontinu ed, Routine, Intra-op bupivacaine 0 Yes PRN, Univer s (preserv 08 Starting ity of free) 14:10: Sat06/20/20 [place] (SENSORCAIN 00 at 0810, Medi brandy E MPF) 0.25 Until Branch % (2.5 Discontinu mg/mL) ed, injection Routine, Intra-op lidocaine Yes PRN, Univers 1% 08 Starting ity of (XYLOCAINE) 14:09: Sat06/20/20 [place] 10 mg/mL (1 00 at 0809, Medi brandy %) Until Branch injection Discontinu ed, Routine, Intra-op propofoL IV 202- No Intravenou Univers infusion 06-20 03-08 s, ONCE ity of 14:05: 14:12 INTRA [place] 00 :42 PROCEDURE, Medical Starting Branch [facility] 06/20/20 at 0805, Until Sat06/20/20 at 0812, Routine, Intra-op lactated 2020-0 2020- No IV Univers ringers IV 06-20 03-08 Infusion, ity of infusion 14:03: 14:12 CONTINUOUS [place] 00 :42 PRN, Medical Starting [facility] 06/20/20 at 0803, Until Sat06/20/20 at 0812, Routine, Intra-op lactated 2020-0 2020- No 1000mL at 42 Unive rs ringers IV 06-20 03-08 mL/hr, ity of infusion 13:00: 13:17 1,000 mL, [place] 1,000 mL 00 :00 IV Medical Infusion, Branch ONCE, 1 dose, Sat06/20/20 at 0700, Routine, DSU Pre-op LOSARTAN Yes 100mg Take 100 Univ ers POTASSIUM 3-08 mg by ity of (LOSARTAN 12:29: mouth [place] ORAL) 33 daily. Medical Branch gabapentin 2021-0 Yes 300mg Take 300 Un you (NEURONTIN) 3-08 mg by ity of 300 mg 12:29: mouth 3 [place] capsule 33 (three) Medical times Branch daily. QUEtiapine 2020-0 Yes 400mg Take 400 Un you (SEROQUEL) 3-08 mg by ity of 400 mg 12:29: mouth at [place] tablet 33 bedtime. Medical Branch escitalopra 2020-0 Yes 20mg Take 20 mg Univers m oxalate 3-08 by mouth ity of (LEXAPRO) 12:29: at [place] 20 mg 33 bedtime. Medical tablet Branch divalproex 2020-0 Yes 500mg Take 500 Un you (DEPAKOTE) 3-08 mg by ity of 500 mg EC 12:29: mouth [place] tablet 33 daily. Medical Branch tiZANidine 2020-0 Yes 4mg Take 4 mg Un you 4 mg 3-08 by mouth 2 ity of capsule 12:29: (two) [place] 33 times Medical daily. Branch chlordiazeP 2020-0 Yes 10mg Take 10 mg Univers OXIDE 10 mg 3-08 by mouth 3 it y of capsule 12:29: (three) [place] 33 times Medical daily. Branch meloxicam 2020-0 Yes 7.5mg Take 7.5 Uni vers 7.5 mg 3-08 mg by ity of tablet 12:29: mouth [place] 33 daily. Medical Branch lithium 2020-0 Yes 300mg Take 300 Unive rs carbonate 3-08 mg by ity of 300 mg 12:29: mouth 2 [place] capsule 33 (two) Medical times Branch daily. temazepam 2020-0 Yes 15mg Take 15 mg Un you 15 mg 3-08 by mouth ity of capsule 12:29: at bedtime [place] 33 as needed Medical for Branch Insomnia. ursodioL 2020-0 Yes 500mg Take 500 Univ ers 500 mg 3-08 mg by ity of tablet 12:29: mouth 2 [place] 33 (two) Medical times Branch daily. LOSARTAN 2021-0 Yes 100mg Take 100 Univ ers POTASSIUM 3-05 mg by ity of (LOSARTAN 16:06: mouth [place] ORAL) 56 daily. Medical Branch gabapentin 2020-0 Yes 300mg Take 300 Un you (NEURONTIN) 3-05 mg by ity of 300 mg 16:06: mouth 3 [place] capsule 56 (three) Medical times Branch daily. QUEtiapine 2020-0 Yes 400mg Take 400 Un you (SEROQUEL) 3-05 mg by ity of 400 mg 16:06: mouth at [place] tablet 56 bedtime. Medical Branch escitalopra 2020-0 Yes 20mg Take 20 mg Univers m oxalate 3-05 by mouth ity of (LEXAPRO) 16:06: at [place] 20 mg 56 bedtime. Medical tablet Branch tiZANidine 2020-0 Yes 4mg Take 4 mg Un you 4 mg 3-05 by mouth 2 ity of capsule 16:06: (two) [place] 56 times Medical daily. Branch meloxicam 2020-0 Yes 7.5mg Take 7.5 Uni vers 7.5 mg 3-05 mg by ity of tablet 16:06: mouth [place] 56 daily. Medical Branch lithium 2020-0 Yes 300mg Take 300 Unive rs carbonate 3-05 mg by ity of 300 mg 16:06: mouth 2 [place] capsule 56 (two) Medical times Branch daily. temazepam 2020-0 Yes 15mg Take 15 mg Un you 15 mg 3-05 by mouth ity of capsule 16:06: at bedtime [place] 56 as needed Medical for Branch Insomnia. ursodioL 2020-0 Yes 500mg Take 500 Univ ers 500 mg 3-05 mg by ity of tablet 16:06: mouth 2 [place] 56 (two) Medical times Branch daily. LOSARTAN 2020-0 Yes 100mg Take 100 Univ ers POTASSIUM 3-05 mg by ity of (LOSARTAN 16:06: mouth [place] ORAL) 56 daily. Medical Branch gabapentin 2020-0 Yes 300mg Take 300 Un you (NEURONTIN) 3-05 mg by ity of 300 mg 16:06: mouth 3 [place] capsule 56 (three) Medical times Branch daily. QUEtiapine 2020-0 Yes 400mg Take 400 Un you (SEROQUEL) 3-05 mg by ity of 400 mg 16:06: mouth at [place] tablet 56 bedtime. Medical Branch escitalopra 2020-0 Yes 20mg Take 20 mg Univers m oxalate 3-05 by mouth ity of (LEXAPRO) 16:06: at [place] 20 mg 56 bedtime. Medical tablet Branch tiZANidine 2020-0 Yes 4mg Take 4 mg Un you 4 mg 3-05 by mouth 2 ity of capsule 16:06: (two) [place] 56 times Medical daily. Branch meloxicam Yes 7.5mg Take 7.5 Uni vers 7.5 mg 3-05 mg by ity of tablet 16:06: mouth [place] 56 daily. Medical Branch lithium Yes 300mg Take 300 Unive rs carbonate 3-05 mg by ity of 300 mg 16:06: mouth 2 [place] capsule 56 (two) Medical times Branch daily. temazepam 0 Yes 15mg Take 15 mg Un you 15 mg 3-05 by mouth ity of capsule 16:06: at bedtime [place] 56 as needed Medical for Branch Insomnia. ursodioL 0 Yes 500mg Take 500 Univ ers 500 mg 3-05 mg by ity of tablet 16:06: mouth 2 [place] 56 (two) Medical times Branch daily. LOSARTAN 0 Yes 100mg Take 100 Univ ers POTASSIUM 3-05 mg by ity of (LOSARTAN 16:06: mouth [place] ORAL) 56 daily. Medical Branch gabapentin Yes 300mg Take 300 Un you (NEURONTIN) 3-05 mg by ity of 300 mg 16:06: mouth 3 [place] capsule 56 (three) Medical times Branch daily. QUEtiapine 0 Yes 400mg Take 400 Un you (SEROQUEL) 3-05 mg by ity of 400 mg 16:06: mouth at [place] tablet 56 bedtime. Medical Branch escitalopra Yes 20mg Take 20 mg Univers m oxalate 3-05 by mouth ity of (LEXAPRO) 16:06: at [place] 20 mg 56 bedtime. Medical tablet Branch tiZANidine Yes 4mg Take 4 mg Un you 4 mg 3-05 by mouth 2 ity of capsule 16:06: (two) [place] 56 times Medical daily. Branch meloxicam Yes 7.5mg Take 7.5 Uni vers 7.5 mg 3-05 mg by ity of tablet 16:06: mouth [place] 56 daily. Medical Branch lithium Yes 300mg Take 300 Unive rs carbonate 3-05 mg by ity of 300 mg 16:06: mouth 2 [place] capsule 56 (two) Medical times Branch daily. temazepam 2020-0 Yes 15mg Take 15 mg Un you 15 mg 3-05 by mouth ity of capsule 16:06: at bedtime [place] 56 as needed Medical for Branch Insomnia. ursodioL 0 Yes 500mg Take 500 Univ ers 500 mg 3-05 mg by ity of tablet 16:06: mouth 2 [place] 56 (two) Medical times Branch daily. chlordiazeP 0 Yes 10mg Take 10 mg Univers OXIDE 10 mg 3-05 by mouth 3 it y of capsule 16:05: (three) [place] 19 times Medical daily. Branch chlordiazeP 0 Yes 10mg Take 10 mg Univers OXIDE 10 mg 3-05 by mouth 3 it y of capsule 16:05: (three) [place] 19 times Medical daily. Branch chlordiazeP Yes 10mg Take 10 mg Univers OXIDE 10 mg 3-05 by mouth 3 it y of capsule 16:05: (three) [place] 19 times Medical daily. Branch butalbital- 2020- No 1{tbl} 1 tablet, Univers acetaminoph 05-07 Oral, ONCE i ty of en-caff 00:15: 23:33 NOW, 1 [place] (ESGIC) 00 :00 dose, Fri Medical 50-325-40 05/06/20 at Bran ch mg tablet 1 1814, [place] tablet dexamethaso 2020- No 10mg 10 mg, IV Univers ne 05-07 Push, ity of (DECADRON 00:15: 23:34 ONCE, 1 [place] PHOSPHATE) 00 :00 dose, Fri Medi brandy injection 05/06/20 at Bran ch 10 mg 181, STAT diphenhydrA 2020- No 25mg 25 mg, Uni vers MINE 05-06 Oral, ity of (BENADRYL) 22:45: 21:48 ONCE, 1 [place] tablet 25 00 :00 dose, Fri Medic al mg 05/06/20 at Branch 1645, [place] metoclopram 2020- No 10mg 10 mg, Uni vers selena HCl 05-06 Slow IV ity of (REGLAN) 22:45: 21:51 Push, [place] injection 00 :00 ONCE, 1 Medical 10 mg dose, Fri Branch 05/06/20 at 1645, [place] ketorolac 2020- No 30mg 30 mg, Unive rs (TORADOL) 05-06 Slow IV ity of injection 22:45: 21:51 Push, [place] 30 mg 00 :00 ONCE, 1 Medical dose, Fri Branch 05/06/20 at 1645, [place]
Fa culty member approving Restricted medication : EMERGENCY ROOM, NaCl 0.9% 2020- No 1000mL at 999 Uni vers (NS) bolus 05-06-23 mL/hr, ity of infusion 21:45: 00:30 1,000 mL, [place] 1,000 mL 00 :00 IV Medical Infusion, Branch ONCE, 1 dose, 05/06/20 at 1545, [place] butalbital- Yes [id number] 1{tbl} Take 1 Univers acetaminoph 1-22 tablet by ity of en-caff 00:00: mouth [place] 50-325-40 00 every 6 Medical mg tablet (six) Branch hours as needed for Pain (scale 7-10) or Other (headache) . butalbital- Yes [id number] 1{tbl} Take 1 Univers acetaminoph 1-22 tablet by ity of en-caff 00:00: mouth [place] 50-325-40 00 every 6 Medical mg tablet (six) Branch hours as needed for Pain (scale 7-10) or Other (headache) . butalbital- Yes [id number] 1{tbl} Take 1 Univers acetaminoph 1-22 tablet by ity of en-caff 00:00: mouth [place] 50-325-40 00 every 6 Medical mg tablet (six) Branch hours as needed for Pain (scale 7-10) or Other (headache) . butalbital- Yes [id number] 1{tbl} Take 1 Univers acetaminoph 1-22 tablet by ity of en-caff 00:00: mouth [place] 50-325-40 00 every 6 Medical mg tablet (six) Branch hours as needed for Pain (scale 7-10) or Other (headache) . butalbital- Yes [id number] 1{tbl} Take 1 Univers acetaminoph 1-22 tablet by ity of en-caff 00:00: mouth [place] 50-325-40 00 every 6 Medical mg tablet (six) Branch hours as needed for Pain (scale 7-10) or Other (headache) . butalbital- Yes [id number] 1{tbl} Take 1 Univers acetaminoph 1-22 tablet by ity of en-caff 00:00: mouth [place] 50-325-40 00 every 6 Medical mg tablet (six) Branch hours as needed for Pain (scale 7-10) or Other (headache) . butalbital- Yes [id number] 1{tbl} Take 1 Univers acetaminoph 1-22 tablet by ity of en-caff 00:00: mouth [place] 50-325-40 00 every 6 Medical mg tablet (six) Branch hours as needed for Pain (scale 7-10) or Other (headache) . butalbital- Yes [id number] 1{tbl} Take 1 Univers acetaminoph 1-22 tablet by ity of en-caff 00:00: mouth [place] 50-325-40 00 every 6 Medical mg tablet (six) Branch hours as needed for Pain (scale 7-10) or Other (headache) . butalbital Yes [id number] 1{tbl} Take 1 Univers acetaminoph 1-22 tablet by ity of en-caff 00:00: mouth [place] 50-325-40 00 every 6 Medical mg tablet (six) Branch hours as needed for Pain (scale 7-10) or Other (headache) . butalbital- Yes [id number] 1{tbl} Take 1 Univers acetaminoph 1-22 tablet by ity of en-caff 00:00: mouth [place] 50-325-40 00 every 6 Medical mg tablet (six) Branch hours as needed for Pain (scale 7-10) or Other (headache) . butalbital- Yes [id number] 1{tbl} Take 1 Univers acetaminoph 1-22 tablet by ity of en-caff 00:00: mouth [place] 50-325-40 00 every 6 Medical mg tablet (six) Branch hours as needed for Pain (scale 7-10) or Other (headache) . butalbital- Yes [id number] 1{tbl} Take 1 Univers acetaminoph 1-22 tablet by ity of en-caff 00:00: mouth [place] 50-325-40 00 every 6 Medical mg tablet (six) Branch hours as needed for Pain (scale 7-10) or Other (headache) . butalbital- Yes [id number] 1{tbl} Take 1 Univers acetaminoph 1-22 tablet by ity of en-caff 00:00: mouth [place] 50-325-40 00 every 6 Medical mg tablet (six) Branch hours as needed for Pain (scale 7-10) or Other (headache) . butalbital- 2020- No [id number] 1{tbl} Take 1 Univers acetaminoph 1-22 04-05 tablet by it y of en-caff 00:00: 00:00 mouth [place] 50-325-40 00 :00 every 6 Medical mg tablet (six) Branch hours as needed for Pain (scale 7-10) or Other (headache) . butalbital- 2020- No [id number] 1{tbl} Take 1 Univers acetaminoph 1-22 04-05 tablet by it y of en-caff 00:00: 00:00 mouth [place] 50-325-40 00 :00 every 6 Medical mg tablet (six) Branch hours as needed for Pain (scale 7-10) or Other (headache) . FENTanyl PF 2019-04- No 75ug 75 mcg, Un you (SUBLIMAZE 05-27 Slow IV ity o f (PF)) 08:45: 07:49 Push, [place] injection 00 :00 ONCE, 1 Medical 75 mcg dose, Sat Branch 03/26/20 at 0245, Routine erythromyci 2019-04- No .5[in_u 0.5 Inch, Univers n 05-27 s] Right Eye, ity of (ILOTYCIN) 07:00: 06:32 ONCE, 1 [place] 5 mg/gram 00 :00 dose, Sat Medic al (0.5 %) 03/26/20 Branch ophthalmic at 0100, ointment [place] 0.5 Inch iohexol 2019-04- No 120mL 120 mL, Unive rs (OMNIPAQUE 05-27 Intravenou it y of 350 06:15: 06:07 s, ONCE, 1 [place] BULK-100 00 :00 dose, Sat Medica l mL) 03/26/20 Branch injection at 0015, 120 mL Routine morpHINE 2019-04- No 4mg 4 mg, Slow Un you injection 4 05-27 IV Push, ity of mg 06:15: 05:09 ONCE, 1 [place] 00 :00 dose, [facility] Medical 03/26/20 Branch at 0015, STAT pantoprazol 2019-04- No 40mg 40 mg, IV Univers e 05-27 Piggyback, ity of (PROTONIX) 05:00: 04:27 ONCE, 1 [place] 40 mg in 00 :00 dose, Fri Medica l NaCl 0.9% 03/25/20 Branch (NS) 100 mL at 2300, MINI-BAG 100 mL ondansetron 2019-04- No 4mg 4 mg, Slow Univers (ZOFRAN 05-27 IV Push, ity of (PF)) 04:45: 03:38 ONCE, 1 [place] injection 4 00 :00 dose, Fri Med ical mg 03/25/20 Branch at 2245, [place] morpHINE 2019-04- No 4mg 4 mg, Slow Un you injection 4 05-27 IV Push, ity of mg 04:45: 03:40 ONCE, 1 [place] 00 :00 dose, [facility] Medical 03/25/20 Branch at 2245, STAT traMADoL 2019-04 Yes [id number] 50mg Take 1 Univers (ULTRAM) 50 2-12 tablet by ity of mg tablet 00:00: mouth [place] 00 every 6 Medical (six) Branch hours as needed for Pain (scale 7-10). Indication s: acute pain traMADoL 2019-04 Yes [id number] 50mg Take 1 Univers (ULTRAM) 50 2-12 tablet by ity of mg tablet 00:00: mouth [place] 00 every 6 Medical (six) Branch hours as needed for Pain (scale 7-10). Indication s: acute pain traMADoL 2019-04 Yes [id number] 50mg Take 1 Univers (ULTRAM) 50 2-12 tablet by ity of mg tablet 00:00: mouth [place] 00 every 6 Medical (six) Branch hours as needed for Pain (scale 7-10). Indication s: acute pain traMADoL 2019-04 Yes [id number] 50mg Take 1 Univers (ULTRAM) 50 2-12 tablet by ity of mg tablet 00:00: mouth [place] 00 every 6 Medical (six) Branch hours as needed for Pain (scale 7-10). Indication s: acute pain traMADoL 2019-04 Yes [id number] 50mg Take 1 Univers (ULTRAM) 50 2-12 tablet by ity of mg tablet 00:00: mouth [place] 00 every 6 Medical (six) Branch hours as needed for Pain (scale 7-10). Indication s: acute pain traMADoL 2019-04 Yes [id number] 50mg Take 1 Univers (ULTRAM) 50 2-12 tablet by ity of mg tablet 00:00: mouth [place] 00 every 6 Medical (six) Branch hours as needed for Pain (scale 7-10). Indication s: acute pain traMADoL 2019-04 Yes [id number] 50mg Take 1 Univers (ULTRAM) 50 2-12 tablet by ity of mg tablet 00:00: mouth [place] 00 every 6 Medical (six) Branch hours as needed for Pain (scale 7-10). Indication s: acute pain traMADoL 2019-04 Yes [id number] 50mg Take 1 Univers (ULTRAM) 50 2-12 tablet by ity of mg tablet 00:00: mouth [place] 00 every 6 Medical (six) Branch hours as needed for Pain (scale 7-10). Indication s: acute pain traMADoL 2019-04 Yes [id number] 50mg Take 1 Univers (ULTRAM) 50 2-12 tablet by ity of mg tablet 00:00: mouth [place] 00 every 6 Medical (six) Branch hours as needed for Pain (scale 7-10). Indication s: acute pain traMADoL 2019-04 Yes [id number] 50mg Take 1 Univers (ULTRAM) 50 2-12 tablet by ity of mg tablet 00:00: mouth [place] 00 every 6 Medical (six) Branch hours as needed for Pain (scale 7-10). Indication s: acute pain traMADoL 2019-04 Yes [id number] 50mg Take 1 Univers (ULTRAM) 50 2-12 tablet by ity of mg tablet 00:00: mouth [place] 00 every 6 Medical (six) Branch hours as needed for Pain (scale 7-10). Indication s: acute pain traMADoL 2019-04 Yes [id number] 50mg Take 1 Univers (ULTRAM) 50 2-12 tablet by ity of mg tablet 00:00: mouth [place] 00 every 6 Medical (six) Branch hours as needed for Pain (scale 7-10). Indication s: acute pain traMADoL 2019-04 Yes 4647 50mg Take 1 Univers (ULTRAM) 50 2-12 tablet by ity of mg tablet 00:00: mouth [place] 00 every 6 Medical (six) Branch hours as needed for Pain (scale 7-10). Indication s: acute pain traMADoL 2019-04 Yes [id number] 50mg Take 1 Univers (ULTRAM) 50 2-12 tablet by ity of mg tablet 00:00: mouth [place] 00 every 6 Medical (six) Branch hours as needed for Pain (scale 7-10). Indication s: acute pain traMADoL 2019-04 Yes [id number] 50mg Take 1 Univers (ULTRAM) 50 2-12 tablet by ity of mg tablet 00:00: mouth [place] 00 every 6 Medical (six) Branch hours as needed for Pain (scale 7-10). Indication s: acute pain traMADoL 2019-04 Yes [id number] 50mg Take 1 Univers (ULTRAM) 50 2-12 tablet by ity of mg tablet 00:00: mouth [place] 00 every 6 Medical (six) Branch hours as needed for Pain (scale 7-10). Indication s: acute pain traMADoL 2019-04- No 4647 50mg Take 1 Univer s (ULTRAM) 50 2-12 04-05 tablet by it y of mg tablet 00:00: 00:00 mouth [place] 00 :00 every 6 Medical (six) Branch hours as needed for Pain (scale 7-10). Indication s: acute pain traMADoL 2019-04- No [id number] 50mg Take 1 Univer s (ULTRAM) 50 2-12 04-05 tablet by it y of mg tablet 00:00: 00:00 mouth [place] 00 :00 every 6 Medical (six) Branch hours as needed for Pain (scale 7-10). Indication s: acute pain erythromyci 2019-04 2020- No [id number] .5[in_u Place 0.5 Univers n 5 mg/gram -04-03 [id number] s] Inches in ity of (0.5 %) 00:00: 05:59 [place] ophthalmic 00 :00 4 (four) Medic al ointment times Branch daily for 7 days. Continue until you follow up with eye doctor. LOSARTAN 2019-04 Yes 100mg Take 100 Univ ers POTASSIUM 0-26 mg by ity of (LOSARTAN 21:14: mouth [place] ORAL) 10 daily. Medical Branch gabapentin 2019-04 Yes 300mg Take 300 Un you (NEURONTIN) 0-26 mg by ity of 300 mg 21:14: mouth 3 [place] capsule 10 (three) Medical times Branch daily. QUEtiapine 2020- Yes 400mg Take 400 Un you (SEROQUEL) 0-26 mg by ity of 400 mg 21:14: mouth at [place] tablet 10 bedtime. Medical Branch escitalopra 2019-04 Yes 20mg Take 20 mg [facility] m oxalate 0-26 by mouth ity of (LEXAPRO) 21:14: at [place] 20 mg 10 bedtime. Medical tablet Branch divalproex 2019-04 Yes 500mg Take 500 Un you (DEPAKOTE) 0-26 mg by ity of 500 mg EC 21:14: mouth [place] tablet 10 daily. Medical Branch tiZANidine 2019-04 Yes 4mg Take 4 mg Un you 4 mg 0-26 by mouth 2 ity of capsule 21:14: (two) [place] 10 times Medical daily. Branch chlordiazeP 2019-04 Yes 10mg Take 10 mg [facility] OXIDE 10 mg 0-26 by mouth 3 it y of capsule 21:14: (three) [place] 10 times Medical daily. Branch meloxicam 2019-04 Yes 7.5mg Take 7.5 Uni vers 7.5 mg 0-26 mg by ity of tablet 21:14: mouth [place] 10 daily. Medical Branch lithium 2019-04 Yes 300mg Take 300 Unive rs carbonate 0-26 mg by ity of 300 mg 21:14: mouth 2 [place] capsule 10 (two) Medical times Branch daily. temazepam 2020- Yes 15mg Take 15 mg Un you 15 mg 0-26 by mouth [place] of capsule 21:14: at bedtime [place] 10 as needed Medical for Branch Insomnia. ursodioL 2020- Yes 500mg Take 500 [facility] ers 500 mg 0-26 mg by ity of tablet 21:14: mouth 2 [place] 10 (two) Medical times Branch daily. LOSARTAN 2020- Yes 100mg Take 100 Univ ers POTASSIUM 0-26 mg by ity of (LOSARTAN 21:14: mouth [place] ORAL) 10 daily. Medical Branch gabapentin 2019-04 Yes 300mg Take 300 Un you (NEURONTIN) 0-26 mg by ity of 300 mg 21:14: mouth 3 [place] capsule 10 (three) Medical times Branch daily. QUEtiapine 2020- Yes 400mg Take 400 Un you (SEROQUEL) 0-26 mg by ity of 400 mg 21:14: mouth at [place] tablet 10 bedtime. Medical Branch escitalopra 2020- Yes 20mg Take 20 mg [facility] m oxalate 0-26 by mouth ity of (LEXAPRO) 21:14: at [place] 20 mg 10 bedtime. Medical tablet Branch divalproex 2020- Yes 500mg Take 500 Un you (DEPAKOTE) 0-26 mg by ity of 500 mg EC 21:14: mouth [place] tablet 10 daily. Medical Branch tiZANidine 2019-04 Yes 4mg Take 4 mg Un you 4 mg 0-26 by mouth 2 ity of capsule 21:14: (two) [place] 10 times Medical daily. Branch chlordiazeP 2019-04 Yes 10mg Take 10 mg [facility] OXIDE 10 mg 0-26 by mouth 3 it y of capsule 21:14: (three) [place] 10 times Medical daily. Branch meloxicam 2019-04 Yes 7.5mg Take 7.5 Uni vers 7.5 mg 0-26 mg by ity of tablet 21:14: mouth [place] 10 daily. Medical Branch lithium 2019-04 Yes 300mg Take 300 Unive rs carbonate 0-26 mg by ity of 300 mg 21:14: mouth 2 [place] capsule 10 (two) Medical times Branch daily. temazepam 2020- Yes 15mg Take 15 mg Un you 15 mg 0-26 by mouth [place] of capsule 21:14: at bedtime [place] 10 as needed Medical for Branch Insomnia. ursodioL 2020- Yes 500mg Take 500 [facility] ers 500 mg 0-26 mg by ity of tablet 21:14: mouth 2 [place] 10 (two) Medical times Branch daily. LOSARTAN 2020- Yes 100mg Take 100 [facility] ers POTASSIUM 0-26 mg by ity of (LOSARTAN 21:14: mouth [place] ORAL) 10 daily. Medical Branch gabapentin 2020- Yes 300mg Take 300 Un you (NEURONTIN) 0-26 mg by ity of 300 mg 21:14: mouth 3 [place] capsule 10 (three) Medical times Branch daily. QUEtiapine 2020- Yes 400mg Take 400 Un you (SEROQUEL) 0-26 mg by ity of 400 mg 21:14: mouth at [place] tablet 10 bedtime. Medical Branch escitalopra 2020- Yes 20mg Take 20 mg [facility] m oxalate 0-26 by mouth ity of (LEXAPRO) 21:14: at [place] 20 mg 10 bedtime. Medical tablet Branch divalproex 2020- Yes 500mg Take 500 Un you (DEPAKOTE) 0-26 mg by ity of 500 mg EC 21:14: mouth [place] tablet 10 daily. Medical Branch tiZANidine 2020- Yes 4mg Take 4 mg Un you 4 mg 0-26 by mouth 2 ity of capsule 21:14: (two) [place] 10 times Medical daily. Branch chlordiazeP 2020- Yes 10mg Take 10 mg [facility] OXIDE 10 mg 0-26 by mouth 3 it y of capsule 21:14: (three) [place] 10 times Medical daily. Branch meloxicam 2019-04 Yes 7.5mg Take 7.5 Uni vers 7.5 mg 0-26 mg by ity of tablet 21:14: mouth [place] 10 daily. Medical Branch lithium 2019- Yes 300mg Take 300 Unive rs carbonate 0-26 mg by ity of 300 mg 21:14: mouth 2 [place] capsule 10 (two) Medical times Branch daily. temazepam 2020- Yes 15mg Take 15 mg Un you 15 mg 0-26 by mouth [place] of capsule 21:14: at bedtime [place] 10 as needed Medical for Branch Insomnia. ursodioL 2020 Yes 500mg Take 500 [facility] ers 500 mg 0-26 mg by ity of tablet 21:14: mouth 2 [place] 10 (two) Medical times Branch daily. LOSARTAN 2020- Yes 100mg Take 100 [facility] ers POTASSIUM 0-26 mg by ity of (LOSARTAN 21:14: mouth [place] ORAL) 10 daily. Medical Branch gabapentin 2020- Yes 300mg Take 300 Un you (NEURONTIN) 0-26 mg by ity of 300 mg 21:14: mouth 3 [place] capsule 10 (three) Medical times Branch daily. QUEtiapine 2020- Yes 400mg Take 400 Un you (SEROQUEL) 0-26 mg by ity of 400 mg 21:14: mouth at [place] tablet 10 bedtime. Medical Branch escitalopra 2019-04 Yes 20mg Take 20 mg [facility] m oxalate 0-26 by mouth ity of (LEXAPRO) 21:14: at [place] 20 mg 10 bedtime. Medical tablet Branch divalproex 2020- Yes 500mg Take 500 Un you (DEPAKOTE) 0-26 mg by ity of 500 mg EC 21:14: mouth [place] tablet 10 daily. Medical Branch tiZANidine 2020- Yes 4mg Take 4 mg Un you 4 mg 0-26 by mouth 2 ity of capsule 21:14: (two) [place] 10 times Medical daily. Branch chlordiazeP 2020- Yes 10mg Take 10 mg [facility] OXIDE 10 mg 0-26 by mouth 3 it y of capsule 21:14: (three) [place] 10 times Medical daily. Branch meloxicam 2020- Yes 7.5mg Take 7.5 Uni vers 7.5 mg 0-26 mg by ity of tablet 21:14: mouth [place] 10 daily. Medical Branch lithium 2020- Yes 300mg Take 300 Unive rs carbonate 0-26 mg by ity of 300 mg 21:14: mouth 2 [place] capsule 10 (two) Medical times Branch daily. temazepam 2020- Yes 15mg Take 15 mg Un you 15 mg 0-26 by mouth [place] of capsule 21:14: at bedtime [place] 10 as needed Medical for Branch Insomnia. ursodioL 2020- Yes 500mg Take 500 [facility] ers 500 mg 0-26 mg by ity of tablet 21:14: mouth 2 [place] 10 (two) Medical times Branch daily. LOSARTAN 2020- Yes 100mg Take 100 [facility] ers POTASSIUM 0-26 mg by ity of (LOSARTAN 21:14: mouth [place] ORAL) 10 daily. Medical Branch gabapentin 2020- Yes 300mg Take 300 Un you (NEURONTIN) 0-26 mg by ity of 300 mg 21:14: mouth 3 [place] capsule 10 (three) Medical times Branch daily. QUEtiapine 2020- Yes 400mg Take 400 Un you (SEROQUEL) 0-26 mg by ity of 400 mg 21:14: mouth at [place] tablet 10 bedtime. Medical Branch escitalopra 2020- Yes 20mg Take 20 mg [facility] m oxalate 0-26 by mouth ity of (LEXAPRO) 21:14: at [place] 20 mg 10 bedtime. Medical tablet Branch divalproex 2020- Yes 500mg Take 500 Un you (DEPAKOTE) 0-26 mg by ity of 500 mg EC 21:14: mouth [place] tablet 10 daily. Medical Branch tiZANidine 2020- Yes 4mg Take 4 mg Un you 4 mg 0-26 by mouth 2 ity of capsule 21:14: (two) [place] 10 times Medical daily. Branch chlordiazeP 2019-04 Yes 10mg Take 10 mg [facility] OXIDE 10 mg 0-26 by mouth 3 it y of capsule 21:14: (three) [place] 10 times Medical daily. Branch meloxicam 2019-04 Yes 7.5mg Take 7.5 Uni vers 7.5 mg 0-26 mg by ity of tablet 21:14: mouth [place] 10 daily. Medical Branch lithium 2020- Yes 300mg Take 300 Unive rs carbonate 0-26 mg by ity of 300 mg 21:14: mouth 2 [place] capsule 10 (two) Medical times Branch daily. temazepam 2020- Yes 15mg Take 15 mg Un you 15 mg 0-26 by mouth [facility] of capsule 21:14: at bedtime [place] 10 as needed Medical for Branch Insomnia. ursodioL 2020 Yes 500mg Take 500 [facility] ers 500 mg 0-26 mg by ity of tablet 21:14: mouth 2 [place] 10 (two) Medical times Branch daily. LOSARTAN 2020- Yes 100mg Take 100 [facility] ers POTASSIUM 0-26 mg by ity of (LOSARTAN 21:14: mouth [place] ORAL) 10 daily. Medical Branch gabapentin 2019-04 Yes 300mg Take 300 Un you (NEURONTIN) 0-26 mg by ity of 300 mg 21:14: mouth 3 [place] capsule 10 (three) Medical times Branch daily. QUEtiapine 2020 Yes 400mg Take 400 Un you (SEROQUEL) 0-26 mg by ity of 400 mg 21:14: mouth at [place] tablet 10 bedtime. Medical Branch escitalopra 2019- Yes 20mg Take 20 mg [facility] m oxalate 0-26 by mouth ity of (LEXAPRO) 21:14: at [place] 20 mg 10 bedtime. Medical tablet Branch divalproex 2020- Yes 500mg Take 500 Un you (DEPAKOTE) 0-26 mg by ity of 500 mg EC 21:14: mouth [place] tablet 10 daily. Medical Branch tiZANidine 2019-04 Yes 4mg Take 4 mg Un you 4 mg 0-26 by mouth 2 ity of capsule 21:14: (two) [place] 10 times Medical daily. Branch chlordiazeP 2019-04 Yes 10mg Take 10 mg [facility] OXIDE 10 mg 0-26 by mouth 3 it y of capsule 21:14: (three) [place] 10 times Medical daily. Branch meloxicam 2019-04 Yes 7.5mg Take 7.5 Uni vers 7.5 mg 0-26 mg by ity of tablet 21:14: mouth [place] 10 daily. Medical Branch lithium 2019-04 Yes 300mg Take 300 Unive rs carbonate 0-26 mg by ity of 300 mg 21:14: mouth 2 [place] capsule 10 (two) Medical times Branch daily. temazepam 2019-04 Yes 15mg Take 15 mg Un you 15 mg 0-26 by mouth [facility] of capsule 21:14: at bedtime [place] 10 as needed Medical for Branch Insomnia. ursodioL 2019-04 Yes 500mg Take 500 [facility] ers 500 mg 0-26 mg by ity of tablet 21:14: mouth 2 [place] 10 (two) Medical times Branch daily. divalproex 2019-04 Yes 500mg Take 500 Un you (DEPAKOTE) 0-26 mg by ity of 500 mg EC 21:14: mouth [place] tablet 10 daily. Medical Branch divalproex 2019-04 Yes 500mg Take 500 Un you (DEPAKOTE) 0-26 mg by ity of 500 mg EC 21:14: mouth [place] tablet 10 daily. Medical Branch divalproex 2019-04 Yes 500mg Take 500 Un you (DEPAKOTE) 0-26 mg by ity of 500 mg EC 21:14: mouth [place] tablet 10 daily. Medical Branch LORazepam 2019-04 2020- No 1mg 1 mg, Slow U nivers (ATIVAN) 0-26 10-26 IV Push, ity of injection 1 13:45: 13:01 ONCE, 1 [place] 00 :00 dose, Mon Medical 02/08/20 Branch at 0845, Routine amLODIPine 2019- Yes [id number] 10mg Take 1 [facility] 10 mg 0-26 tablet by ity of tablet 00:00: mouth [place] 00 daily. Medical Branch hydrALAZINE 2019- Yes [id number] 50mg Take 1 [facility] 50 mg 0-26 tablet by ity of tablet 00:00: mouth [place] 00 every 8 Medical (eight) Branch hours. aspirin 81 2019- Yes [id number] 81mg Take 1 [facility] mg chewable 0-26 tablet by ity of tablet 00:00: mouth [place] 00 daily. Medical Branch amLODIPine 2019- Yes [id number] 10mg Take 1 [facility] 10 mg 0-26 tablet by ity of tablet 00:00: mouth [place] 00 daily. Medical Branch hydrALAZINE 2019- Yes [id number] 50mg Take 1 [facility] 50 mg 0-26 tablet by ity of tablet 00:00: mouth [place] 00 every 8 Medical (eight) Branch hours. aspirin 81 2019- Yes [id number] 81mg Take 1 [facility] mg chewable 0-26 tablet by ity of tablet 00:00: mouth [place] 00 daily. Medical Branch amLODIPine 2019-04 Yes [id number] 10mg Take 1 [facility] 10 mg 0-26 tablet by ity of tablet 00:00: mouth [place] 00 daily. Medical Branch hydrALAZINE 2019- Yes [id number] 50mg Take 1 [facility] 50 mg 0-26 tablet by ity of tablet 00:00: mouth [place] 00 every 8 Medical (eight) Branch hours. aspirin 81 2019-04 Yes [id number] 81mg Take 1 [facility] mg chewable 0-26 tablet by ity of tablet 00:00: mouth [place] 00 daily. Medical Branch amLODIPine 2019-04 Yes [id number] 10mg Take 1 [facility] 10 mg 0-26 tablet by ity of tablet 00:00: mouth [place] 00 daily. Medical Branch hydrALAZINE 2019- Yes [id number] 50mg Take 1 [facility] 50 mg 0-26 tablet by ity of tablet 00:00: mouth [place] 00 every 8 Medical (eight) Branch hours. aspirin 81 2019- Yes [id number] 81mg Take 1 [facility] mg chewable 0-26 tablet by ity of tablet 00:00: mouth [place] 00 daily. Medical Branch amLODIPine 2019- Yes [id number] 10mg Take 1 [facility] 10 mg 0-26 tablet by ity of tablet 00:00: mouth [place] 00 daily. Medical Branch hydrALAZINE 2019- Yes [id number] 50mg Take 1 [facility] 50 mg 0-26 tablet by ity of tablet 00:00: mouth [place] 00 every 8 Medical (eight) Branch hours. aspirin 81 2019- Yes [id number] 81mg Take 1 [facility] mg chewable 0-26 tablet by ity of tablet 00:00: mouth [place] 00 daily. Medical Branch amLODIPine 2019- Yes [id number] 10mg Take 1 [facility] 10 mg 0-26 tablet by ity of tablet 00:00: mouth [place] 00 daily. Medical Branch hydrALAZINE 2019- Yes [id number] 50mg Take 1 [facility] 50 mg 0-26 tablet by ity of tablet 00:00: mouth [place] 00 every 8 Medical (eight) Branch hours. aspirin 81 2019- Yes [id number] 81mg Take 1 [facility] mg chewable 0-26 tablet by ity of tablet 00:00: mouth [place] 00 daily. Medical Branch amLODIPine 2019-04 Yes [id number] 10mg Take 1 [facility] 10 mg 0-26 tablet by ity of tablet 00:00: mouth [place] 00 daily. Medical Branch hydrALAZINE 2019-04 Yes [id number] 50mg Take 1 [facility] 50 mg 0-26 tablet by ity of tablet 00:00: mouth [place] 00 every 8 Medical (eight) Branch hours. aspirin 81 2019-04 Yes [id number] 81mg Take 1 [facility] mg chewable 0-26 tablet by ity of tablet 00:00: mouth [place] 00 daily. Medical Branch amLODIPine 2019-04 Yes [id number] 10mg Take 1 [facility] 10 mg 0-26 tablet by ity of tablet 00:00: mouth [place] 00 daily. Medical Branch hydrALAZINE 2019-04 Yes [id number] 50mg Take 1 [facility] 50 mg 0-26 tablet by ity of tablet 00:00: mouth [place] 00 every 8 Medical (eight) Branch hours. aspirin 81 2019-04 Yes [id number] 81mg Take 1 [facility] mg chewable 0-26 tablet by ity of tablet 00:00: mouth [place] 00 daily. Medical Branch amLODIPine 2019- Yes [id number] 10mg Take 1 [facility] 10 mg 0-26 tablet by ity of tablet 00:00: mouth [place] 00 daily. Medical Branch hydrALAZINE 2019- Yes [id number] 50mg Take 1 [facility] 50 mg 0-26 tablet by ity of tablet 00:00: mouth [place] 00 every 8 Medical (eight) Branch hours. aspirin 81 2019-1 Yes [id number] 81mg Take 1 [facility] mg chewable 0-26 tablet by ity of tablet 00:00: mouth [place] 00 daily. Medical Branch amLODIPine 2019-04 Yes [id number] 10mg Take 1 [facility] 10 mg 0-26 tablet by ity of tablet 00:00: mouth [place] 00 daily. Medical Branch hydrALAZINE 2019- Yes [id number] 50mg Take 1 [facility] 50 mg 0-26 tablet by ity of tablet 00:00: mouth [place] 00 every 8 Medical (eight) Branch hours. aspirin 81 2019-1 Yes [id number] 81mg Take 1 [facility] mg chewable 0-26 tablet by ity of tablet 00:00: mouth [place] 00 daily. Medical Branch amLODIPine 2019-04 Yes [id number] 10mg Take 1 [facility] 10 mg 0-26 tablet by ity of tablet 00:00: mouth [place] 00 daily. Medical Branch hydrALAZINE 2019-04 Yes [id number] 50mg Take 1 [facility] 50 mg 0-26 tablet by ity of tablet 00:00: mouth [place] 00 every 8 Medical (eight) Branch hours. aspirin 81 2019-04 Yes [id number] 81mg Take 1 [facility] mg chewable 0-26 tablet by ity of tablet 00:00: mouth [place] 00 daily. Medical Branch amLODIPine 2019-04 Yes [id number] 10mg Take 1 [facility] 10 mg 0-26 tablet by ity of tablet 00:00: mouth [place] 00 daily. Medical Branch hydrALAZINE 2019-04 Yes [id number] 50mg Take 1 [facility] 50 mg 0-26 tablet by ity of tablet 00:00: mouth [place] 00 every 8 Medical (eight) Branch hours. aspirin 81 2019-04 Yes [id number] 81mg Take 1 [facility] mg chewable 0-26 tablet by ity of tablet 00:00: mouth [place] 00 daily. Medical Branch amLODIPine 2019-04 Yes [id number] 10mg Take 1 [facility] 10 mg 0-26 tablet by ity of tablet 00:00: mouth [place] 00 daily. Medical Branch hydrALAZINE 2019-04 Yes [id number] 50mg Take 1 [facility] 50 mg 0-26 tablet by ity of tablet 00:00: mouth [place] 00 every 8 Medical (eight) Branch hours. aspirin 81 1 Yes [id number] 81mg Take 1 [facility] mg chewable 0-26 tablet by ity of tablet 00:00: mouth [place] 00 daily. Medical Branch amLODIPine 2019- Yes [id number] 10mg Take 1 [facility] 10 mg 0-26 tablet by ity of tablet 00:00: mouth [place] 00 daily. Medical Branch hydrALAZINE 2019- Yes [id number] 50mg Take 1 [facility] 50 mg 0-26 tablet by ity of tablet 00:00: mouth [place] 00 every 8 Medical (eight) Branch hours. aspirin 81 2019- Yes [id number] 81mg Take 1 [facility] mg chewable 0-26 tablet by ity of tablet 00:00: mouth [place] 00 daily. Medical Branch amLODIPine 2019- Yes [id number] 10mg Take 1 [facility] 10 mg 0-26 tablet by ity of tablet 00:00: mouth [place] 00 daily. Medical Branch hydrALAZINE 2019-04 Yes [id number] 50mg Take 1 [facility] 50 mg 0-26 tablet by ity of tablet 00:00: mouth [place] 00 every 8 Medical (eight) Branch hours. aspirin 81 2019-04 Yes [id number] 81mg Take 1 [facility] mg chewable 0-26 tablet by ity of tablet 00:00: mouth [place] 00 daily. Medical Branch amLODIPine 2019-04 Yes [id number] 10mg Take 1 [facility] 10 mg 0-26 tablet by ity of tablet 00:00: mouth [place] 00 daily. Medical Branch hydrALAZINE 2019-04 Yes [id number] 50mg Take 1 [facility] 50 mg 0-26 tablet by ity of tablet 00:00: mouth [place] 00 every 8 Medical (eight) Branch hours. aspirin 81 2019-04 Yes [id number] 81mg Take 1 [facility] mg chewable 0-26 tablet by ity of tablet 00:00: mouth [place] 00 daily. Medical Branch amLODIPine 2019-04 Yes [id number] 10mg Take 1 [facility] 10 mg 0-26 tablet by ity of tablet 00:00: mouth [place] 00 daily. Medical Branch hydrALAZINE 2019-04 Yes [id number] 50mg Take 1 [facility] 50 mg 0-26 tablet by ity of tablet 00:00: mouth [place] 00 every 8 Medical (eight) Branch hours. aspirin 81 2019-04 Yes [id number] 81mg Take 1 [facility] mg chewable 0-26 tablet by ity of tablet 00:00: mouth [place] 00 daily. Medical Branch amLODIPine 2019-04 Yes [id number] 10mg Take 1 [facility] 10 mg 0-26 tablet by ity of tablet 00:00: mouth [place] 00 daily. Medical Branch hydrALAZINE 2019-04 Yes [id number] 50mg Take 1 [facility] 50 mg 0-26 tablet by ity of tablet 00:00: mouth [place] 00 every 8 Medical (eight) Branch hours. aspirin 81 2019-04 Yes [id number] 81mg Take 1 [facility] mg chewable 0-26 tablet by ity of tablet 00:00: mouth [place] 00 daily. Medical Branch amLODIPine 2019-04- No [id number] 10mg Take 1 [facility] 10 mg 0-26 04-05 tablet by ity of tablet 00:00: 00:00 mouth [place] 00 :00 daily. Medical Branch hydrALAZINE 2019-04- No [id number] 50mg Take 1 [facility] 50 mg 0-26 04-05 tablet by ity of tablet 00:00: 00:00 mouth [place] 00 :00 every 8 Medical (eight) Branch hours. aspirin 81 2019-04- No [id number] 81mg Take 1 [facility] mg chewable 0-26 04-05 tablet by it y of tablet 00:00: 00:00 mouth [place] 00 :00 daily. Medical Branch amLODIPine 2019-04- No [id number] 10mg Take 1 [facility] 10 mg 0-26 04-05 tablet by ity of tablet 00:00: 00:00 mouth [place] 00 :00 daily. Medical Branch hydrALAZINE 2019-04- No [id number] 50mg Take 1 [facility] 50 mg 0-26 04-05 tablet by ity of tablet 00:00: 00:00 mouth [place] 00 :00 every 8 Medical (eight) Branch hours. aspirin 81 2019-04- No [id number] 81mg Take 1 [facility] mg chewable 0-26 04-05 tablet by it y of tablet 00:00: 00:00 mouth [place] 00 :00 daily. Medical Branch hydrALAZINE 2019-04 Yes 50mg 50 mg, Univ ers (APRESOLINE 0-24 Oral, Q8H, it y of ) tablet 50 19:00: First dose [place] mg 00 (after Medical last Branch modificati on) on 02/06/20 at 1400, Until Discontinu ed, Routine cyanocobala 2019-04 Yes 1000ug 1,000 mcg, Univers min 0-24 Subcutaneo ity of (VITAMIN 14:00: [place], Q24H, [place] B12) 00 First dose Medical injection (after Branch 1,000 mcg last modificati on) on 02/06/20 at 0915, Until Discontinu ed, Routine hydrALAZINE 2019-04- No 10mg 10 mg, Uni vers (APRESOLINE 0-23 10-24 Oral, Q8H it y of ) tablet 10 17:45: 16:25 ABX, First [place] mg 00 :04 dose Medical (after Branch last modificati on) on Sat02/05/20 at 1245, Until Discontinu ed, Routine LORazepam 2019-04- No 1mg 1 mg, Slow U nivers (ATIVAN) 0- 10-24 IV Push, ity of injection 1 17:00: 02:13 ONCE, 1 [place] 00 :00 dose, [facility] 02/05/20 Branch at 1200, Routine lipase-prot 2019-04 Yes 3{capsu 3 capsule, Univers ease-amylas 0-23 le} Oral, TID ity of e (CREON) 14:00: MEALS, [place] 12,000-38,0 00 First dose Me dical 00 -60,000 on Sat Branch unit 02/05/20 capsule 3 at 0900, capsule Until Discontinu ed, Routine ondansetron 2019-04- No 4mg 4 mg, Univ ers (ZOFRAN) 0- 10- Oral, ity of tablet 4 mg 22:30: 22:42 ONCE, 1 [place] 00 :[place] dose, [facility] 02/04/20 Branch at 1730, Routine ondansetron 2019-04 Yes 4mg 4 mg, Unive rs (ZOFRAN) 0-22 Oral, ity of tablet 4 mg 21:25: Q6HPRN, [place] 39 Starting Medical [facility] Branch 02/04/20 at 1625, Until Discontinu ed, Routine, Nausea and Vomiting (N/V) ondansetron 2019-04- No 4mg 4 mg, Slow Univers (ZOFRAN 0- 10-22 IV Push, ity of (PF)) 15:15: 21:26 Q8HPRN, [place] injection 4 54 :52 Starting Medi brandy mg [facility] Branch 02/04/20 at 1015, Until [facility] 02/04/20 at 1626, Routine, Nausea and Vomiting (N/V) LORazepam 2019-04- No 1mg 1 mg, Univer s (ATIVAN) 0-22 10-22 Oral, ity of tablet 1 mg 14:30: 23:16 ONCE, 1 [place] 00 :[place] dose, [facility] 02/04/20 Branch at 0930, Routine enoxaparin 2019-04 Yes 40mg 40 mg, Unive rs (LOVENOX) 0-22 Subcutaneo ity of injection 14:00: [place], DAILY, [place] 40 mg 00 First dose Medical on [facility] Branch 02/04/20 at 0900, Until Discontinu ed, Routine divalproex 2019-04 Yes 500mg 500 mg, Uni vers (DEPAKOTE) 0-22 Oral, ity of EC tablet 14:00: DAILY, [place] 500 mg 00 First dose Medical on [facility] Branch 02/04/20 at 0900, Until Discontinu ed, Routine pantoprazol 2019-04 Yes 40mg 40 mg, Univ ers e 0-22 Oral, BID, ity of (PROTONIX) 13:00: First dose [place] EC tablet 00 on [facility] 40 mg 02/04/20 Branch at 0800, Until Discontinu ed, Routine lactulose 2019-04 Yes 15mL 15 mL, Univer s (CEPHULAC) 0- Oral, BID, ity of solution 15 13:00: First dose [place] mL 00 (after Medical last Branch modificati on) on [facility] 02/04/20 at 0800, Until Discontinu ed, Routine traMADoL 2019-04 Yes 50mg 50 mg, Univers (ULTRAM) 0 Oral, ity of tablet 50 03:22: Q8HPRN, [place] mg 09 Starting [facility] 02/03/20 at 2222, Until Discontinu ed, Routine, Pain (scale 4-6) lactated 2019-04 2020- No 1000mL at 100 Univ ers ringers IV 0- 10-25 mL/hr, ity of infusion 02:15: 23:20 1,000 mL, [place] 1,000 mL 00 :45 IV Medical Infusion, Branch CONTINUOUS , Starting [facility] 02/03/20 at 2115, Until 02/07/20 at 1820, Routine docusate 2019-04 Yes 100mg 100 mg, Unive rs (COLACE) 0-22 Oral, ity of capsule 100 02:01: BIDPRN, [place] mg 06 Starting [facility] 02/03/20 at 2101, Until Discontinu ed, Routine, Constipati on acetaminoph 2019-04 Yes 650mg 650 mg, Un you en 0 Oral, ity of (TYLENOL) 01:58: Q8HPRN, [place] tablet 650 47 Starting Medic al mg [facility] 02/03/20 at 205, Until Discontinu ed, Routine, Pain (scale 1-3) ondansetron 2019-04- No 4mg 4 mg, Univ ers (ZOFRAN) 002-03 Oral, ity of tablet 4 mg 01:52: 21:19 Q8HPRN, [place] 29 :27 Starting Medical [facility] 02/03/20 at 205, Until [place] 02/04/20 at 1619, Routine, Nausea and Vomiting (N/V) sennosides 2019-04 Yes 8.6mg 8.6 mg, Uni vers (SENOKOT) Oral, ity of tablet 8.6 16:30: DAILY, [place] mg 00 First dose Medical on [facility] 02/03/20 at 1130, Until Discontinu ed, Routine magnesium 2019-04 Yes 400mg 400 mg, Univ ers oxide Oral, ity of (MAG-OX 16:30: DAILY, [place] 400) tablet 00 First dose Me dical 400 mg on [facility] 02/03/20 at 1130, Until Discontinu ed, Routine docusate 2019-04- No 100mg 100 mg, Univ ers (COLACE) 02-03 Oral, ity of capsule 100 16:30: 02:14 DAILY, [place] mg 00 :35 First dose Medical on [facility] 02/03/20 at 1130, Until Discontinu ed, Routine lactulose 2019-04 2020- No 15mL 15 mL, Unive rs (CEPHULAC) 02-02 Oral, QID, it y of solution 15 03:30: 21:01 First dose [place] mL 00 :02 on [facility] 02/02/20 [place] at 2230, Until Discontinu ed, Routine amLODIPine 2019-04 Yes 10mg 10 mg, Unive rs (NORVASC) 0 Oral, ity of tablet 10 22:30: DAILY, [place] mg 00 First dose Medical on [facility] 02/02/20 at 1730, Until Discontinu ed, Routine labetaloL 2019-04 Yes 10mg 10 mg, Univer s (NORMODYNE) 0-20 Slow IV ity o f injection 22:18: Push, [place] 10 mg 17 Q4HPRN, Medical Starting Branch Sat02/02/20 at 1718, Until Discontinu ed, Routine, sbp > 180 or dbp > 110. hold if HR < 60 D5W 0.45% 2019-04 2020- No IV [facility] NaCl 0-20 10-21 Infusion, ity of (1/2NS) 1 L 20:15: 16:24 at 50 [place] + KCL 20 00 :26 mL/hr, Medical mEq CONTINUOUS Branch , Starting Sat02/02/20 at 1515, Until 02/03/20 at 1124, Routine losartan 2019-04 Yes 100mg 100 mg, Unive rs (COZAAR) 0-20 Oral, ity of tablet 100 19:15: DAILY, [place] mg 00 First dose Medical on [facility] 02/02/20 at 1415, Until Discontinu ed, Routine lipase-prot 2019-04 2020- No 1{capsu 1 capsule, Univers ease-amylas 0-20 10-23 le} Oral, TID it y of e 19:15: 13:49 MEALS, [place] (PANCREAZE) 00 :19 First dose Me dical 16,800-56,8 on [facility] Branch 00- 98,400 02/02/20 unit at 1415, capsule 1 Until capsule Discontinu ed diltiazem 2019-04 2020- No 5mg 5 mg, Slow U nivers (CARDIZEM 0-20 10-20 IV Push, ity o f IV) 11:47: 19:14 PRN, 2 [place] injection 5 00 :49 doses, Medica l mg Starting Branch Sat02/02/20 at 0647, Until Sat02/02/20 at 1414, Routine, FOR SBP > 160, DBP > 110. Hold for SBP < 160, DBP < 60, HR < 60
F aculty member approving Restricted medication : MADHAV NICOLE cloNIDine 2019-04 2020- No .1mg 0.1 mg, Univ ers (CATAPRES) 0-20 10-20 Oral, ity of tablet 0.1 06:00: 05:21 ONCE, 1 [place] mg 00 :00 dose, [facility] Medical 02/02/20 Branch at 0100, Routine D5W 0.45% 2019-04- No 1000mL at 150 Uni vers NaCl 0-20 10-20 mL/hr, ity of (1/2NS) IV 00:15: 19:02 1,000 mL, [place] infusion 00 :15 IV Medical 1,000 mL Infusion, Branch CONTINUOUS , Starting Sat02/01/20 at 1915, Until Sat02/02/20 at 1402, Routine vancomycin 2019-04- No 15mg/kg 1,250 mg Univers 1250 mg in 02-01 (rounded ity of NS 250 mL 00:15: 19:04 from 1,245 [place] RTU IV 00 :24 mg = 15 Medical Piggyback mg/kg ?83 Branc h 1,250 mg kg), IV Piggyback, Q24H ABX, First dose on Sat02/01/20 at 1915, Until Discontinu ed
Reas on for Anti-Infec tive: Empiric Therapy for Suspected Infection< br>Empiric Therapy Site: Blood
D uration of therapy: 72 hours hydralAZINE 2019-04 Yes 10mg 10 mg, Univ ers (APRESOLINE 0-19 Slow IV ity o f ) injection 20:45: Push, [place] 10 mg 41 Q4HPRN, Medical Starting Branch [facility] 02/01/20 at 1545, Until Discontinu ed, STAT, SBP > 180, DBP > 120
Ind ication: Hypertensi ve Emergency NaCl 0.45% 2019-04- No 1000mL at 150 Un you (1/2NS) IV 0- 10-20 mL/hr, ity of infusion 18:45: 06:44 1,000 mL, [place] 1,000 mL 00 :00 IV Medical Infusion, Branch ONCE, 1 dose, [facility] 02/01/20 at 1345, Routine cyanocobala 2019-04- No 1000ug 1,000 mcg, Univers min 0 10-24 Subcutaneo ity of (VITAMIN 15:30: 14:03 us, Q24H, [place] as B12) 00 :58 First dose Medical injection on Sat Branch 1,000 mcg 02/01/20 at 1030, Until Discontinu ed, Routine NaCl 0.45% 2019-04 No 1000mL at 100 Un you (1/2NS) IV 0-19 10-19 mL/hr, ity of infusion 15:30: 17:38 1,000 mL, [place] 1,000 mL 00 :01 IV Medical Infusion, Branch CONTINUOUS , Starting Sat02/01/20 at 1030, Until Sat02/01/20 at 1238, Routine enoxaparin 2019-04 No 30mg 30 mg, Univ ers (LOVENOX) 002-03 Subcutaneo ity of injection 14:00: 02:09 us, DAILY, [place] 30 mg 00 :34 First dose Medical on [facility] 02/01/20 at 0900, Until Discontinu ed, Routine NaCl 0.9% 2019-04 No 2000mL at 125 Uni vers (NS) IV 0-19 10-19 mL/hr, IV ity of infusion 03:30: 03:17 Infusion, [place] 2,000 mL 00 :00 ONCE, 1 Medical dose, [facility] 01/31/20 at 2230, Routine thiamine 2019-04 No 100mg IV Univers (VITAMIN 0-01-31 Piggyback, ity of B1) 100 mg 22:30: 14:59 DAILY, 2 [place] in NaCl 00 :00 doses, Medical 0.9% (NS) First dose Bran ch piggyback on [place] 01/31/20 at 1730, Last dose on Sat02/01/20 at 0900, 50 mL lactated 2019-04- No 1000mL at 125 Univ ers ringers IV 0-18 10-19 mL/hr, ity of infusion 22:30: 02:29 1,000 mL, [place] 1,000 mL 00 :41 IV Medical Infusion, Branch CONTINUOUS , Starting [place] 01/31/20 at 1730, Until [place] 01/31/20 at 2129, Routine NaCl 0.9% 2019-04- No 30mL/kg at 999 Un you (NS) bolus 0-18 10-18 mL/hr, ity of infusion 15:45: 16:04 2,730 mL [place] 2,730 mL 00 :00 (30 mL/kg Medica l ?91 kg), Branch IV Infusion, ONCE, 1 dose, [place] 01/31/20 at 1045, [place] haloperidol 2020-0 2020- No 2.5mg 2.5 mg, U nivers lactate 12-17 Intravenou ity o f (HALDOL) 23:45: 22:50 s, ONCE, 1 [place] injection 00 :00 dose, Fri Medic al 2.5 mg 12/18/19 at Branch 1845, STAT FENTanyl PF 2019- 2020- No 50ug 50 mcg, Un you (SUBLIMAZE 12-17 Slow IV ity o f (PF)) 23:45: 22:50 Push, [place] injection 00 :00 ONCE, 1 Medical 50 mcg dose, Fri Branch 12/18/19 at 1845, Routine iohexol 2019- 2020- No 120mL 120 mL, Unive rs (OMNIPAQUE 12-17 Intravenou it y of 350 22:01: 22:02 s, ONCE, 1 [place] BULK-100 00 :00 dose, Fri Medica l mL) 12/18/19 at [place] injection 1715, 120 mL Routine proMETHazin 2019-0 2019- No 25mg 25 mg, IV Univers e 12-17 Piggyback, ity of (PHENERGAN) 21:30: 20:40 ONCE, 1 [place] 25 mg in 00 :00 dose, Fri Medica l NaCl 0.9% 12/18/19 at Branc h (NS) 50 mL 1630, 50 piggyback mL proMETHazin 2020-0 Yes [id number] 25mg Insert 1 Univers e 12-17 Suppositor ity of (PHENERGAN) 00:00: y into [place] 25 mg 00 rectum Medical suppository every 4 Branc h (four) hours as needed for Nausea and Vomiting (N/V). proMETHazin 2020-0 Yes [id number] 25mg Insert 1 Univers e 12-17 Suppositor ity of (PHENERGAN) 00:00: y into [place] 25 mg 00 rectum Medical suppository every 4 Branc h (four) hours as needed for Nausea and Vomiting (N/V). proMETHazin 2020-0 Yes [id number] 25mg Insert 1 Univers e 12-17 Suppositor ity of (PHENERGAN) 00:00: y into [place] 25 mg 00 rectum Medical suppository every 4 Branc h (four) hours as needed for Nausea and Vomiting (N/V). proMETHazin 2020-0 Yes [id number] 25mg Insert 1 Univers e 9-04 Suppositor ity of (PHENERGAN) 00:00: y into [place] 25 mg 00 rectum Medical suppository every 4 Branc h (four) hours as needed for Nausea and Vomiting (N/V). proMETHazin 2020-0 Yes [id number] 25mg Insert 1 Univers e 9-04 Suppositor ity of (PHENERGAN) 00:00: y into [place] 25 mg 00 rectum Medical suppository every 4 Branc h (four) hours as needed for Nausea and Vomiting (N/V). proMETHazin 2020-0 Yes [id number] 25mg Insert 1 Univers e 9-04 Suppositor ity of (PHENERGAN) 00:00: y into [place] 25 mg 00 rectum Medical suppository every 4 Branc h (four) hours as needed for Nausea and Vomiting (N/V). proMETHazin 2020-0 Yes [id number] 25mg Insert 1 Univers e 9-04 Suppositor ity of (PHENERGAN) 00:00: y into [place] 25 mg 00 rectum Medical suppository every 4 Branc h (four) hours as needed for Nausea and Vomiting (N/V). proMETHazin 2020-0 Yes [id number] 25mg Insert 1 Univers e 9-04 Suppositor ity of (PHENERGAN) 00:00: y into [place] 25 mg 00 rectum Medical suppository every 4 Branc h (four) hours as needed for Nausea and Vomiting (N/V). proMETHazin 2020-0 Yes [id number] 25mg Insert 1 Univers e 9-04 Suppositor ity of (PHENERGAN) 00:00: y into [place] 25 mg 00 rectum Medical suppository every 4 Branc h (four) hours as needed for Nausea and Vomiting (N/V). proMETHazin 2020-0 Yes [id number] 25mg Insert 1 Univers e 9-04 Suppositor ity of (PHENERGAN) 00:00: y into [place] 25 mg 00 rectum Medical suppository every 4 Branc h (four) hours as needed for Nausea and Vomiting (N/V). proMETHazin 2020-0 Yes [id number] 25mg Insert 1 Univers e 9-04 Suppositor ity of (PHENERGAN) 00:00: y into [place] 25 mg 00 rectum Medical suppository every 4 Branc h (four) hours as needed for Nausea and Vomiting (N/V). proMETHazin 2020-0 Yes [id number] 25mg Insert 1 Univers e 9-04 Suppositor ity of (PHENERGAN) 00:00: y into [place] 25 mg 00 rectum Medical suppository every 4 Branc h (four) hours as needed for Nausea and Vomiting (N/V). proMETHazin 2020-0 Yes [id number] 25mg Insert 1 Univers e 9-04 Suppositor ity of (PHENERGAN) 00:00: y into [place] 25 mg 00 rectum Medical suppository every 4 Branc h (four) hours as needed for Nausea and Vomiting (N/V). proMETHazin 2020-0 Yes [id number] 25mg Insert 1 Univers e 9-04 Suppositor ity of (PHENERGAN) 00:00: y into [place] 25 mg 00 rectum Medical suppository every 4 Branc h (four) hours as needed for Nausea and Vomiting (N/V). proMETHazin 2020-0 Yes [id number] 25mg Insert 1 Univers e 9-04 Suppositor ity of (PHENERGAN) 00:00: y into [place] mg 00 rectum Medical suppository every 4 Branc h (four) hours as needed for Nausea and Vomiting (N/V). proMETHazin 2020-0 Yes [id number] 25mg Insert 1 Univers e 9-04 Suppositor ity of (PHENERGAN) 00:00: y into [place] 25 mg 00 rectum Medical suppository every 4 Branc h (four) hours as needed for Nausea and Vomiting (N/V). proMETHazin 2020-0 Yes [id number] 25mg Insert 1 Univers e 9-04 Suppositor ity of (PHENERGAN) 00:00: y into [place] 25 mg 00 rectum Medical suppository every 4 Branc h (four) hours as needed for Nausea and Vomiting (N/V). proMETHazin 2020-0 Yes [id number] 25mg Insert 1 Univers e 9-04 Suppositor ity of (PHENERGAN) 00:00: y into [place] 25 mg 00 rectum Medical suppository every 4 Branc h (four) hours as needed for Nausea and Vomiting (N/V). proMETHazin 2020-0 Yes [id number] 25mg Insert 1 Univers e 9 Suppositor ity of (PHENERGAN) 00:00: y into [place] 25 mg 00 rectum Medical suppository every 4 Branc h (four) hours as needed for Nausea and Vomiting (N/V). proMETHazin 2019-2020- No [id number] 25mg Insert 1 Univers e 12-17 04-05 Suppositor ity of (PHENERGAN) 00:00: 00:00 y into [place] 25 mg 00 :00 rectum Medical suppository every 4 Branc h (four) hours as needed for Nausea and Vomiting (N/V). proMETHazin 2019-2020- No [id number] 25mg Insert 1 Univers e 12-17-05 Suppositor ity of (PHENERGAN) 00:00: 00:00 y into [place] 25 mg 00 :00 rectum Medical suppository every 4 Branc h (four) hours as needed for Nausea and Vomiting (N/V). Chlorhexidi Chlorhexidi 2019- 2020- No Na [place] [address] [facility] 10-05 06-30 [facility] - Gluconate Gluconate 00:00: 00:00 spit Me [place] 00 :00 [facility] cloNIDine 2019- 2020- No .2mg 0.2 mg, Univ ers (CATAPRES) 08-21-09 Oral, ity of tablet 0.2 05:00: 04:00 ONCE, 1 [place] mg 00 :00 dose, Sat Medical 08/22/19 at Branch 0000, STAT ondansetron 2019- 2020- No 4mg 4 mg, Slow Univers (ZOFRAN 08-21 IV Push, ity of (PF)) 04:15: 03:15 ONCE, 1 [place] injection 4 00 :00 dose, Fri Med ical mg 08/21/19 at Branch 2315, [place] FENTanyl PF 2019-2019- No 50ug 50 mcg, Un you (SUBLIMAZE 08-21- Slow IV ity o f (PF)) 04:15: 03:15 Push, [place] injection 00 :00 ONCE, 1 Medical 50 mcg dose, Fri Branch 08/21/19 at 2315, Routine benzonatate 2020-0 2020- No 200mg 200 mg, U nivers (TESSALON 5 05-09 Oral, ONCE ity of PERLES) 04:15: 03:15 NOW, 1 [place] capsule 200 00 :00 dose, Sat Med ical mg 08/21/19 at Branch 2315, Routine Nitrofurant 2020-0 Yes [id number] 100mg Take 1 Univers oin&Nit. 5-08 capsule by ity o f Macrocryst 00:00: mouth 2 [place] (MACROBID) 00 (two) Medical 100 mg times Branch capsule daily. benzonatate 2020-0 Yes [id number] 200mg Take 1 Univers 200 mg 5-08 capsule by ity of capsule 00:00: mouth 3 00 (three) Medical times Branch daily as needed for Cough. ondansetron 2020-0 Yes [id number] 4mg Take 1 Univers (ZOFRAN) 4 5-08 tablet by ity of mg tablet 00:00: mouth [place] 00 every 8 Medical (eight) Branch hours as needed for Nausea and Vomiting (N/V). traMADol 2020-0 Yes [id number] 50mg Take 1 Uni vers (ULTRAM) 50 5-08 tablet by ity of mg tablet 00:00: mouth [place] 00 every 6 Medical (six) Branch hours as needed for Pain (scale 7-10). albuterol 2020-0 Yes [id number] 2{puff} Inhale 2 Univers 90 5-08 Puffs ity of mcg/actuati 00:00: every 4 [place] on inhaler 00 (four) Medical hours as Branch needed for Wheezing, Shortness of Breath, Bronchospa sm or Chest tightness. benzonatate 2020-0 Yes [id number] 200mg Take 1 Univers 200 mg 5-08 capsule by ity of capsule 00:00: mouth 3 00 (three) Medical times Branch daily as needed for Cough. ondansetron 2020-0 Yes [id number] 4mg Take 1 Univers (ZOFRAN) 4 5-08 tablet by ity of mg tablet 00:00: mouth [place] 00 every 8 Medical (eight) Branch hours as needed for Nausea and Vomiting (N/V). traMADol 2020-0 Yes [id number] 50mg Take 1 Uni vers (ULTRAM) 50 5-08 tablet by ity of mg tablet 00:00: mouth [place] 00 every 6 Medical (six) Branch hours as needed for Pain (scale 7-10). albuterol 2020-0 Yes [id number] 2{puff} Inhale 2 Univers 90 5-08 Puffs ity of mcg/actuati 00:00: every 4 [place] on inhaler 00 (four) Medical hours as Branch needed for Wheezing, Shortness of Breath, Bronchospa sm or Chest tightness. benzonatate 2020-0 Yes [id number] 200mg Take 1 Univers 200 mg 5-08 capsule by ity of capsule 00:00: mouth 3 [place] 00 (three) Medical times Branch daily as needed for Cough. ondansetron 2020-0 Yes [id number] 4mg Take 1 Univers (ZOFRAN) 4 5-08 tablet by ity of mg tablet 00:00: mouth [place] 00 every 8 Medical (eight) Branch hours as needed for Nausea and Vomiting (N/V). traMADol 2020-0 Yes [id number] 50mg Take 1 Uni vers (ULTRAM) 50 5-08 tablet by ity of mg tablet 00:00: mouth [place] 00 every 6 Medical (six) Branch hours as needed for Pain (scale 7-10). albuterol 2020-0 Yes [id number] 2{puff} Inhale 2 Univers 90 5-08 Puffs ity of mcg/actuati 00:00: every 4 [place] on inhaler 00 (four) Medical hours as Branch needed for Wheezing, Shortness of Breath, Bronchospa sm or Chest tightness. benzonatate 2020-0 Yes [id number] 200mg Take 1 [facility] 200 mg 5-08 capsule by ity of capsule 00:00: mouth 3 [place] 00 (three) Medical times Branch daily as needed for Cough. ondansetron 2020-0 Yes [id number] 4mg Take 1 Univers (ZOFRAN) 4 5-08 tablet by ity of mg tablet 00:00: mouth [place] 00 every 8 Medical (eight) Branch hours as needed for Nausea and Vomiting (N/V). traMADol 2020-0 Yes [id number] 50mg Take 1 Uni vers (ULTRAM) 50 5-08 tablet by ity of mg tablet 00:00: mouth [place] 00 every 6 Medical (six) Branch hours as needed for Pain (scale 7-10). albuterol 2020-0 Yes [id number] 2{puff} Inhale 2 Univers 90 5-08 Puffs ity of mcg/actuati 00:00: every 4 [place] on inhaler 00 (four) Medical hours as Branch needed for Wheezing, Shortness of Breath, Bronchospa sm or Chest tightness. benzonatate 2020-0 Yes [id number] 200mg Take 1 Univers 200 mg 5-08 capsule by ity of capsule 00:00: mouth 3 [place] 00 (three) Medical times Branch daily as needed for Cough. ondansetron 2020-0 Yes [id number] 4mg Take 1 Univers (ZOFRAN) 4 5-08 tablet by ity of mg tablet 00:00: mouth [place] 00 every 8 Medical (eight) Branch hours as needed for Nausea and Vomiting (N/V). traMADol 2020-0 Yes [id number] 50mg Take 1 Uni vers (ULTRAM) 50 5-08 tablet by ity of mg tablet 00:00: mouth [place] 00 every 6 Medical (six) Branch hours as needed for Pain (scale 7-10). albuterol 2020-0 Yes [id number] 2{puff} Inhale 2 Univers 90 5-08 Puffs ity of mcg/actuati 00:00: every 4 [place] on inhaler 00 (four) Medical hours as Branch needed for Wheezing, Shortness of Breath, Bronchospa sm or Chest tightness. benzonatate 2020-0 Yes [id number] 200mg Take 1 [facility] 200 mg 5-08 capsule by ity of capsule 00:00: mouth 3 [place] 00 (three) Medical times Branch daily as needed for Cough. ondansetron 2020-0 Yes [id number] 4mg Take 1 Univers (ZOFRAN) 4 5-08 tablet by ity of mg tablet 00:00: mouth [place] 00 every 8 Medical (eight) Branch hours as needed for Nausea and Vomiting (N/V). traMADol 2020-0 Yes [id number] 50mg Take 1 Uni vers (ULTRAM) 50 5-08 tablet by ity of mg tablet 00:00: mouth [place] 00 every 6 Medical (six) Branch hours as needed for Pain (scale 7-10). albuterol 2020-0 Yes [id number] 2{puff} Inhale 2 Univers 90 5-08 Puffs ity of mcg/actuati 00:00: every 4 [place] on inhaler 00 (four) Medical hours as Branch needed for Wheezing, Shortness of Breath, Bronchospa sm or Chest tightness. benzonatate 2020-0 Yes [id number] 200mg Take 1 [facility] 200 mg 5-08 capsule by ity of capsule 00:00: mouth 3 [place] 00 (three) Medical times Branch daily as needed for Cough. ondansetron 2020-0 Yes [id number] 4mg Take 1 Univers (ZOFRAN) 4 5-08 tablet by ity of mg tablet 00:00: mouth [place] 00 every 8 Medical (eight) Branch hours as needed for Nausea and Vomiting (N/V). traMADol 2020-0 Yes [id number] 50mg Take 1 Uni vers (ULTRAM) 50 5-08 tablet by ity of mg tablet 00:00: mouth [place] 00 every 6 Medical (six) Branch hours as needed for Pain (scale 7-10). albuterol 2020-0 Yes [id number] 2{puff} Inhale 2 [facility] 90 5-08 Puffs ity of mcg/actuati 00:00: every 4 [place] on inhaler 00 (four) Medical hours as Branch needed for Wheezing, Shortness of Breath, Bronchospa sm or Chest tightness. benzonatate 2020-0 Yes [id number] 200mg Take 1 [facility] 200 mg 5-08 capsule by ity of capsule 00:00: mouth 3 [place] 00 (three) Medical times Branch daily as needed for Cough. ondansetron 2020-0 Yes [id number] 4mg Take 1 Univers (ZOFRAN) 4 5-08 tablet by ity of mg tablet 00:00: mouth [place] 00 every 8 Medical (eight) Branch hours as needed for Nausea and Vomiting (N/V). traMADol 2020-0 Yes [id number] 50mg Take 1 Uni vers (ULTRAM) 50 5-08 tablet by ity of mg tablet 00:00: mouth [place] 00 every 6 Medical (six) Branch hours as needed for Pain (scale 7-10). albuterol 2020-0 Yes [id number] 2{puff} Inhale 2 [facility] 90 5-08 Puffs ity of mcg/actuati 00:00: every 4 [place] on inhaler 00 (four) Medical hours as Branch needed for Wheezing, Shortness of Breath, Bronchospa sm or Chest tightness. benzonatate 2020-0 Yes [id number] 200mg Take 1 [facility] 200 mg 5-08 capsule by ity of capsule 00:00: mouth 3 [place] 00 (three) Medical times Branch daily as needed for Cough. ondansetron 2020-0 Yes [id number] 4mg Take 1 Univers (ZOFRAN) 4 5-08 tablet by ity of mg tablet 00:00: mouth [place] 00 every 8 Medical (eight) Branch hours as needed for Nausea and Vomiting (N/V). traMADol 2020-0 Yes [id number] 50mg Take 1 Uni vers (ULTRAM) 50 5-08 tablet by ity of mg tablet 00:00: mouth [place] 00 every 6 Medical (six) Branch hours as needed for Pain (scale 7-10). albuterol 2020-0 Yes [id number] 2{puff} Inhale 2 Univers 90 5-08 Puffs ity of mcg/actuati 00:00: every 4 [place] on inhaler 00 (four) Medical hours as Branch needed for Wheezing, Shortness of Breath, Bronchospa sm or Chest tightness. benzonatate 2020-0 Yes [id number] 200mg Take 1 [facility] 200 mg 5-08 capsule by ity of capsule 00:00: mouth 3 (three) Medical times Branch daily as needed for Cough. ondansetron 2020-0 Yes [id number] 4mg Take 1 Univers (ZOFRAN) 4 5-08 tablet by ity of mg tablet 00:00: mouth [place] 00 every 8 Medical (eight) Branch hours as needed for Nausea and Vomiting (N/V). traMADol 2020-0 Yes [id number] 50mg Take 1 Uni vers (ULTRAM) 50 5-08 tablet by ity of mg tablet 00:00: mouth [place] 00 every 6 Medical (six) Branch hours as needed for Pain (scale 7-10). albuterol 2020-0 Yes [id number] 2{puff} Inhale 2 [facility] 90 5-08 Puffs ity of mcg/actuati 00:00: every 4 [place] on inhaler 00 (four) Medical hours as Branch needed for Wheezing, Shortness of Breath, Bronchospa sm or Chest tightness. benzonatate 2020-0 Yes [id number] 200mg Take 1 Univers 200 mg 5-08 capsule by ity of capsule 00:00: mouth 3 [place] 00 (three) Medical times Branch daily as needed for Cough. ondansetron 2020-0 Yes [id number] 4mg Take 1 Univers (ZOFRAN) 4 5-08 tablet by ity of mg tablet 00:00: mouth [place] 00 every 8 Medical (eight) Branch hours as needed for Nausea and Vomiting (N/V). traMADol 2020-0 Yes [id number] 50mg Take 1 Uni vers (ULTRAM) 50 5-08 tablet by ity of mg tablet 00:00: mouth [place] 00 every 6 Medical (six) Branch hours as needed for Pain (scale 7-10). albuterol 2020-0 Yes [id number] 2{puff} Inhale 2 [facility] 90 5-08 Puffs ity of mcg/actuati 00:00: every 4 [place] on inhaler 00 (four) Medical hours as Branch needed for Wheezing, Shortness of Breath, Bronchospa sm or Chest tightness. benzonatate 2020-0 Yes [id number] 200mg Take 1 [facility] 200 mg 5-08 capsule by ity of capsule 00:00: mouth 3 [place] 00 (three) Medical times Branch daily as needed for Cough. ondansetron 2020-0 Yes [id number] 4mg Take 1 Univers (ZOFRAN) 4 5-08 tablet by ity of mg tablet 00:00: mouth [place] 00 every 8 Medical (eight) Branch hours as needed for Nausea and Vomiting (N/V). traMADol 2020-0 Yes [id number] 50mg Take 1 Uni vers (ULTRAM) 50 5-08 tablet by ity of mg tablet 00:00: mouth [place] 00 every 6 Medical (six) Branch hours as needed for Pain (scale 7-10). albuterol 2020-0 Yes [id number] 2{puff} Inhale 2 [facility] 90 5-08 Puffs ity of mcg/actuati 00:00: every 4 [place] on inhaler 00 (four) Medical hours as Branch needed for Wheezing, Shortness of Breath, Bronchospa sm or Chest tightness. benzonatate 2020-0 Yes [id number] 200mg Take 1 Univers 200 mg 5-08 capsule by ity of capsule 00:00: mouth 3 [place] 00 (three) Medical times Branch daily as needed for Cough. ondansetron 2020-0 Yes [id number] 4mg Take 1 Univers (ZOFRAN) 4 5-08 tablet by ity of mg tablet 00:00: mouth [place] 00 every 8 Medical (eight) Branch hours as needed for Nausea and Vomiting (N/V). traMADol 2020-0 Yes [id number] 50mg Take 1 Uni vers (ULTRAM) 50 5-08 tablet by ity of mg tablet 00:00: mouth [place] 00 every 6 Medical (six) Branch hours as needed for Pain (scale 7-10). albuterol 2020-0 Yes [id number] 2{puff} Inhale 2 [facility] 90 5-08 Puffs ity of mcg/actuati 00:00: every 4 [place] on inhaler 00 (four) Medical hours as Branch needed for Wheezing, Shortness of Breath, Bronchospa sm or Chest tightness. benzonatate 2020-0 Yes [id number] 200mg Take 1 [facility] 200 mg 5-08 capsule by ity of capsule 00:00: mouth 3 [place] 00 (three) Medical times Branch daily as needed for Cough. ondansetron 2020-0 Yes [id number] 4mg Take 1 Univers (ZOFRAN) 4 5-08 tablet by ity of mg tablet 00:00: mouth [place] 00 every 8 Medical (eight) Branch hours as needed for Nausea and Vomiting (N/V). traMADol 2020-0 Yes [id number] 50mg Take 1 Uni vers (ULTRAM) 50 5-08 tablet by ity of mg tablet 00:00: mouth [place] 00 every 6 Medical (six) Branch hours as needed for Pain (scale 7-10). albuterol 2020-0 Yes [id number] 2{puff} Inhale 2 [facility] 90 5-08 Puffs ity of mcg/actuati 00:00: every 4 [place] on inhaler 00 (four) Medical hours as Branch needed for Wheezing, Shortness of Breath, Bronchospa sm or Chest tightness. benzonatate 2020-0 Yes [id number] 200mg Take 1 [facility] 200 mg 5-08 capsule by ity of capsule 00:00: mouth 3 [place] 00 (three) Medical times Branch daily as needed for Cough. ondansetron 2020-0 Yes [id number] 4mg Take 1 Univers (ZOFRAN) 4 5-08 tablet by ity of mg tablet 00:00: mouth [place] 00 every 8 Medical (eight) Branch hours as needed for Nausea and Vomiting (N/V). traMADol 2020-0 Yes [id number] 50mg Take 1 Uni vers (ULTRAM) 50 5-08 tablet by ity of mg tablet 00:00: mouth [place] 00 every 6 Medical (six) Branch hours as needed for Pain (scale 7-10). albuterol 2020-0 Yes [id number] 2{puff} Inhale 2 [facility] 90 5-08 Puffs ity of mcg/actuati 00:00: every 4 [place] on inhaler 00 (four) Medical hours as Branch needed for Wheezing, Shortness of Breath, Bronchospa sm or Chest tightness. benzonatate 2020-0 Yes [id number] 200mg Take 1 [facility] 200 mg 5-08 capsule by ity of capsule 00:00: mouth 3 [place] 00 (three) Medical times Branch daily as needed for Cough. ondansetron 2020-0 Yes [id number] 4mg Take 1 Univers (ZOFRAN) 4 5-08 tablet by ity of mg tablet 00:00: mouth [place] 00 every 8 Medical (eight) Branch hours as needed for Nausea and Vomiting (N/V). traMADol 2020-0 Yes [id number] 50mg Take 1 Uni vers (ULTRAM) 50 5-08 tablet by ity of mg tablet 00:00: mouth [place] 00 every 6 Medical (six) Branch hours as needed for Pain (scale 7-10). albuterol 2020-0 Yes [id number] 2{puff} Inhale 2 [facility] 90 5-08 Puffs ity of mcg/actuati 00:00: every 4 [place] on inhaler 00 (four) Medical hours as Branch needed for Wheezing, Shortness of Breath, Bronchospa sm or Chest tightness. benzonatate 2020-0 Yes [id number] 200mg Take 1 [facility] 200 mg 5-08 capsule by ity of capsule 00:00: mouth 3 [place] 00 (three) Medical times Branch daily as needed for Cough. ondansetron 2020-0 Yes [id number] 4mg Take 1 [facility] (ZOFRAN) 4 5-08 tablet by ity of mg tablet 00:00: mouth [place] 00 every 8 Medical (eight) Branch hours as needed for Nausea and Vomiting (N/V). traMADol 2020-0 Yes [id number] 50mg Take 1 Uni vers (ULTRAM) 50 5-08 tablet by ity of mg tablet 00:00: mouth [place] 00 every 6 Medical (six) Branch hours as needed for Pain (scale 7-10). albuterol 2020-0 Yes [id number] 2{puff} Inhale 2 [facility] 90 5-08 Puffs ity of mcg/actuati 00:00: every 4 [place] on inhaler 00 (four) Medical hours as Branch needed for Wheezing, Shortness of Breath, Bronchospa sm or Chest tightness. benzonatate 2020-0 Yes [id number] 200mg Take 1 [facility] 200 mg 5-08 capsule by ity of capsule 00:00: mouth 3 [place] 00 (three) Medical times Branch daily as needed for Cough. ondansetron 2020-0 Yes [id number] 4mg Take 1 [facility] (ZOFRAN) 4 5-08 tablet by ity of mg tablet 00:00: mouth [place] 00 every 8 Medical (eight) Branch hours as needed for Nausea and Vomiting (N/V). traMADol 2020-0 Yes [id number] 50mg Take 1 [facility] vers (ULTRAM) 50 5-08 tablet by ity of mg tablet 00:00: mouth [place] 00 every 6 Medical (six) Branch hours as needed for Pain (scale 7-10). albuterol 2020-0 Yes [id number] 2{puff} Inhale 2 [facility] 90 5-08 Puffs ity of mcg/actuati 00:00: every 4 [place] on inhaler 00 (four) Medical hours as Branch needed for Wheezing, Shortness of Breath, Bronchospa sm or Chest tightness. benzonatate 2020-0 Yes [id number] 200mg Take 1 [facility] 200 mg 5-08 capsule by ity of capsule 00:00: mouth 3 [place] 00 (three) Medical times Branch daily as needed for Cough. ondansetron 2020-0 Yes [id number] 4mg Take 1 [facility] (ZOFRAN) 4 5-08 tablet by ity of mg tablet 00:00: mouth [place] 00 every 8 Medical (eight) Branch hours as needed for Nausea and Vomiting (N/V). traMADol 2020-0 Yes [id number] 50mg Take 1 [facility] vers (ULTRAM) 50 5-08 tablet by ity of mg tablet 00:00: mouth [place] 00 every 6 Medical (six) Branch hours as needed for Pain (scale 7-10). albuterol 2020-0 Yes [id number] 2{puff} Inhale 2 [facility] 90 5-08 Puffs ity of mcg/actuati 00:00: every 4 [place] on inhaler 00 (four) Medical hours as Branch needed for Wheezing, Shortness of Breath, Bronchospa sm or Chest tightness. ondansetron 2020-0 Yes [id number] 4mg Take 1 [facility] (ZOFRAN) 4 5-08 tablet by ity of mg tablet 00:00: mouth [place] 00 every 8 Medical (eight) Branch hours as needed for Nausea and Vomiting (N/V). ondansetron 2020-0 Yes [id number] 4mg Take 1 [facility] (ZOFRAN) 4 5-08 tablet by ity of mg tablet 00:00: mouth [place] 00 every 8 Medical (eight) Branch hours as needed for Nausea and Vomiting (N/V). ondansetron 2020-0 Yes [id number] 4mg Take 1 [facility] (ZOFRAN) 4 5-08 tablet by ity of mg tablet 00:00: mouth [place] 00 every 8 Medical (eight) Branch hours as needed for Nausea and Vomiting (N/V). ondansetron 2020-0 Yes [id number] 4mg Take 1 [facility] (ZOFRAN) 4 5-08 tablet by ity of mg tablet 00:00: mouth [place] 00 every 8 Medical (eight) Branch hours as needed for Nausea and Vomiting (N/V). Nitrofurant 2020-0 Yes [id number] 100mg Take 1 [facility] oin&Nit. 5-08 capsule by ity o f Macrocryst 00:00: mouth 2 [place] (MACROBID) 00 (two) Medical 100 mg times Branch capsule daily. benzonatate 2020-0 Yes [id number] 200mg Take 1 [facility] 200 mg 5-08 capsule by ity of capsule 00:00: mouth 3 [place] 00 (three) Medical times Branch daily as needed for Cough. ondansetron 2020-0 Yes [id number] 4mg Take 1 [facility] (ZOFRAN) 4 5-08 tablet by ity of mg tablet 00:00: mouth [place] 00 every 8 Medical (eight) Branch hours as needed for Nausea and Vomiting (N/V). traMADol 2020-0 Yes [id number] 50mg Take 1 [facility] (ULTRAM) 50 5-08 tablet by ity of mg tablet 00:00: mouth [place] 00 every 6 Medical (six) Branch hours as needed for Pain (scale 7-10). albuterol 2020-0 Yes [id number] 2{puff} Inhale 2 [facility] 90 5-08 Puffs ity of mcg/actuati 00:00: every 4 [place] on inhaler 00 (four) Medical hours as Branch needed for Wheezing, Shortness of Breath, Bronchospa sm or Chest tightness. ondansetron 2020- No [id number] 4mg Take 1 [facility] (ZOFRAN) 4 5-08 06-30 tablet by ity of mg tablet 00:00: 00:00 mouth [place] 00 :00 every 8 Medical (eight) Branch hours as needed for Nausea and Vomiting (N/V). benzonatate 2020- No [id number] 200mg Take 1 [facility] 200 mg 5-08 04-05 capsule by ity of capsule 00:00: 00:00 mouth 3 [place] 00 :00 (three) Medical times Branch daily as needed for Cough. traMADol 2020- No [id number] 50mg Take 1 [facility] you (ULTRAM) 50 5-08 04-05 tablet by it y of mg tablet 00:00: 00:00 mouth [place] 00 :00 every 6 Medical (six) Branch hours as needed for Pain (scale 7-10). albuterol 2020- No [id number] 2{puff} Inhale 2 [facility] 90 5-08 04-05 Puffs ity of mcg/actuati 00:00: 00:00 every 4 [place] inhaler 00 :00 (four) Medical hours as Branch needed for Wheezing, Shortness of Breath, Bronchospa sm or Chest tightness. benzonatate 2020- No [id number] 200mg Take 1 [facility] 200 mg 5-08 04-05 capsule by ity of capsule 00:00: 00:00 mouth 3 [place] 00 :00 (three) Medical times Branch daily as needed for Cough. traMADol 2020- No [id number] 50mg Take 1 [facility] you (ULTRAM) 50 5-08 04-05 tablet by it y of mg tablet 00:00: 00:00 mouth [place] 00 :00 every 6 Medical (six) Branch hours as needed for Pain (scale 7-10). albuterol 2020- No [id number] 2{puff} Inhale 2 [facility] 90 5-08 04-05 Puffs ity of mcg/actuati 00:00: 00:00 every 4 [place] on inhaler 00 :00 (four) Medical hours as Branch needed for Wheezing, Shortness of Breath, Bronchospa sm or Chest tightness. Nitrofurant 2019-0 2020- No [id number] 100mg Take 1 [facility] oin&Nit. 08-20 capsule by ity of Macrocryst 00:00: 00:00 mouth 2 [place] (MACROBID) 00 :00 (two) Medical 100 mg times Branch capsule daily. HYDROcodone 2019- 2020- No 1{tbl} 1 tablet, Univers -acetaminop 06-25 Oral, ONCE i ty of hen (NORCO) 01:15: 00:22 NOW, 1 [place] 10-325 mg 00 :00 dose, [facility] Medic al tablet 1 06/25/19 at [facility] h tablet 2014, [place] dicyclomine 2019- Yes 20mg 20 mg, Univ ers (BENTYL) 06-25 Intramuscu ity o f injection 01:00: lar, QID, [place] 20 mg 00 First dose Medical on [facility] Branch 06/25/19 at 2000, Until Discontinu ed, [place] hydralAZINE 2019- No 20mg 20 mg, Uni vers (APRESOLINE 06-25 Intravenou i ty of ) injection 00:45: 00:10 s, ONCE [place] 20 mg 00 :00 NOW, 1 Medical dose, [facility] Branch 06/25/19 at 1945, [place] metoclopram 2019- No 10mg 10 mg, Uni vers selena HCl 06-24 Slow IV ity of (REGLAN) 23:45: 22:48 Push, [place] injection 00 :00 ONCE, 1 Medical 10 mg dose, [facility] Branch 06/25/19 at 1845, [place] ketorolac 2019-2019- No 30mg 30 mg, Unive rs (TORADOL) 06-24 Slow IV ity of injection 23:45: 22:49 Push, [place] 30 mg 00 :00 ONCE, 1 Medical dose, [facility] Branch 06/25/19 at 1845, [place]
Fa culty member approving Restricted medication : KIRSTIN RON NaCl 0.9% 2019-2019- No 1000mL at 999 Uni vers (NS) bolus 06-24 mL/hr, ity of infusion 22:45: 01:01 1,000 mL, [place] as 1,000 mL 00 :00 IV Medical Infusion, [place] ONCE, 1 dose, [place] 06/25/19 at 1745, [place] maalox:diph 2020-0 2020- No 15mL 15 mL, Uni vers enhydrAMINE 06-24 Oral, ity of :lidocaine 22:45: 22:52 ONCE, 1 [place] 2 % viscous 00 :00 dose, [place] Med ical 1:1:1 06/25/19 at [place] (FIRST-MOUT 174, [place] [facility]) oral suspension 15 mL morpHINE 2020-0 2020- No 4mg 4 mg, Slow Un you injection 4 06-19 IV Push, ity of mg 01:00: 00:10 ONCE, 1 [place] 00 :00 dose, Fri Medical 06/19/19 at Nettie 1900, STAT maalox:diph 2020-0 2020- No 15mL 15 mL, Uni vers enhydrAMINE 06-19 Oral, ity of :lidocaine 01:00: 00:10 ONCE, 1 [place] 2 % viscous 00 :00 dose, Fri Med ical 1:1:1 06/19/19 at [place] (FIRST-MO 190, [facility]) Routine oral suspension 15 mL famotidine 2020-0 2020- No 20mg 20 mg, Univ ers (PEPCID 06-18 Slow IV ity of (PF)) 22:30: 21:40 Push, [place] injection 00 :00 ONCE, 1 Medical 20 mg dose, Fri Branch 06/19/19 at 1630, [place] proMETHazin 2020-0 2020- No 12.5mg 12.5 mg, Univers e 06-18 IV ity of (PHENERGAN) 22:30: 21:40 Piggyback, [place] 12.5 mg in 00 :00 ONCE, 1 Medica l NaCl 0.9% dose, Fri Branc h (NS) 50 mL 06/19/19 at piggyback 1630, 50 mL morpHINE 2020-0 2020- No 4mg 4 mg, Slow Un you injection 4 06-18 IV Push, ity of mg 22:30: 21:40 ONCE, 1 [place] 00 :00 dose, Fri Medical 06/19/19 at Branch 1630, STAT NaCl 0.9% 2019-0 2020- No 1000mL at 999 Uni vers (NS) bolus 3-06 03-06 mL/hr, ity of infusion 21:30: 23:56 1,000 mL, [place] as 1,000 mL 00 :00 IV Medical Infusion, Branch ONCE, 1 dose, 06/19/19 at 1530, [place] ondansetron 2020-0 Yes [id number] 8mg Take 2 [facility] 4 mg 3-06 tablets by ity of disintegrat 00:00: mouth [place] ing tablet 00 every 8 Medica l (eight) Branch hours as needed for Nausea and Vomiting (N/V). ondansetron 2020-0 Yes [id number] 8mg Take 2 [facility] 4 mg 3-06 tablets by ity of disintegrat 00:00: mouth [place] ing tablet 00 every 8 Medica l (eight) Branch hours as needed for Nausea and Vomiting (N/V). ondansetron 2020-0 Yes [id number] 8mg Take 2 [facility] 4 mg 3-06 tablets by ity of disintegrat 00:00: mouth [place] ing tablet 00 every 8 Medica l (eight) Branch hours as needed for Nausea and Vomiting (N/V). ondansetron 2020-0 Yes [id number] 8mg Take 2 [facility] 4 mg 3-06 tablets by ity of disintegrat 00:00: mouth [place] ing tablet 00 every 8 Medica l (eight) Branch hours as needed for Nausea and Vomiting (N/V). ondansetron 2020-0 2020- No [id number] 8mg Take 2 [facility] 4 mg 3-06 10-26 tablets by ity of disintegrat 00:00: 00:00 mouth [place] tablet 00 :00 every 8 Medica l (eight) Branch hours as needed for Nausea and Vomiting (N/V). famotidine 2020-0 2020- No [id number] 40mg Take 1 [facility] (PEPCID) 40 3-06 04-06 tablet by it y of mg tablet 00:00: 04:59 mouth [place] 00 :00 daily for Medical 30 days. Branch famotidine 2020-0 2020- No [id number] 40mg Take 1 [facility] (PEPCID) 40 3-06 04-06 tablet by it y of mg tablet 00:00: 04:59 mouth [place] 00 :00 daily for Medical 30 days. Branch morpHINE 2020-0 2020- No 4mg 4 mg, Slow Un you injection 4 05-20-05 IV Push, ity of mg 04:15: 03:09 ONCE, 1 [place] 00 :00 dose, [facility] Medical 05/19/19 at Branch 2215, STAT iohexol 2020-0 2020- No 120mL 120 mL, Unive rs (OMNIPAQUE 2-05 Intravenou it y of 350 02:15: 02:15 s, ONCE, 1 [place] BULK-150 00 :00 dose, Tue Medica l mL) 05/19/19 at Branch injection 2014, 120 mL Routine ondansetron 2020-0 2020- No 4mg 4 mg, Slow Univers (ZOFRAN 05-20-05 IV Push, ity of (PF)) 02:15: 01:25 ONCE, 1 [place] injection 4 00 :00 dose, Tue Med ical mg 05/19/19 at Branch 2014, Routine morpHINE 2020-0 2020- No 4mg 4 mg, Slow Un you injection 4 05-20-05 IV Push, ity of mg 02:15: 01:25 ONCE, 1 [place] 00 :00 dose, [facility] Medical 05/19/19 at Branch 2014, STAT traMADol 2020-0 Yes [id number] 100mg Take 1 Un you 100 mg 24 2-04 tablet by ity o f hr tablet 00:00: mouth [place] 00 daily. Medical Branch ondansetron 2020-0 Yes [id number] 4mg Take 1 [facility] 4 mg 2-04 tablet by ity of disintegrat 00:00: mouth [place] ing tablet 00 every 8 Medica l (eight) Branch hours as needed for Nausea and Vomiting (N/V). ondansetron 2020-0 Yes [id number] 4mg Take 1 [facility] 4 mg 2-04 tablet by ity of disintegrat 00:00: mouth [place] ing tablet 00 every 8 Medica l (eight) Branch hours as needed for Nausea and Vomiting (N/V). ondansetron 2020-0 Yes [id number] 4mg Take 1 [facility] 4 mg 2-04 tablet by ity of disintegrat 00:00: mouth [place] ing tablet 00 every 8 Medica l (eight) Branch hours as needed for Nausea and Vomiting (N/V). ondansetron 2020-0 Yes [id number] 4mg Take 1 [facility] 4 mg 2-04 tablet by ity of disintegrat 00:00: mouth [place] ing tablet 00 every 8 Medica l (eight) Branch hours as needed for Nausea and Vomiting (N/V). ondansetron 2020-0 Yes [id number] 4mg Take 1 [facility] 4 mg 2-04 tablet by ity of disintegrat 00:00: mouth [place] ing tablet 00 every 8 Medica l (eight) Branch hours as needed for Nausea and Vomiting (N/V). ondansetron 2020-0 Yes [id number] 4mg Take 1 [facility] 4 mg 2-04 tablet by ity of disintegrat 00:00: mouth [place] ing tablet 00 every 8 Medica l (eight) Branch hours as needed for Nausea and Vomiting (N/V). ondansetron 2020-0 Yes [id number] 4mg Take 1 [facility] 4 mg 2-04 tablet by ity of disintegrat 00:00: mouth [place] ing tablet 00 every 8 Medica l (eight) Branch hours as needed for Nausea and Vomiting (N/V). ondansetron 2020-0 Yes [id number] 4mg Take 1 [facility] 4 mg 2-04 tablet by ity of disintegrat 00:00: mouth [place] ing tablet 00 every 8 Medica l (eight) Branch hours as needed for Nausea and Vomiting (N/V). ondansetron 2020-0 Yes [id number] 4mg Take 1 [facility] 4 mg 2-04 tablet by ity of disintegrat 00:00: mouth [place] ing tablet 00 every 8 Medica l (eight) Branch hours as needed for Nausea and Vomiting (N/V). ondansetron 2020-0 Yes [id number] 4mg Take 1 [facility] 4 mg 2-04 tablet by ity of disintegrat 00:00: mouth [place] ing tablet 00 every 8 Medica l (eight) Branch hours as needed for Nausea and Vomiting (N/V). ondansetron 2020-0 Yes [id number] 4mg Take 1 [facility] 4 mg 2-04 tablet by ity of disintegrat 00:00: mouth [place] ing tablet 00 every 8 Medica l (eight) Branch hours as needed for Nausea and Vomiting (N/V). ondansetron 2020-0 Yes [id number] 4mg Take 1 [facility] 4 mg 2-04 tablet by ity of disintegrat 00:00: mouth [place] ing tablet 00 every 8 Medica l (eight) Branch hours as needed for Nausea and Vomiting (N/V). ondansetron 2020-0 Yes [id number] 4mg Take 1 [facility] 4 mg 2-04 tablet by ity of disintegrat 00:00: mouth [place] ing tablet 00 every 8 Medica l (eight) Branch hours as needed for Nausea and Vomiting (N/V). ondansetron 2020-0 Yes [id number] 4mg Take 1 [facility] 4 mg 2-04 tablet by ity of disintegrat 00:00: mouth [place] ing tablet 00 every 8 Medica l (eight) Branch hours as needed for Nausea and Vomiting (N/V). ondansetron 2020-0 Yes [id number] 4mg Take 1 [facility] 4 mg 2-04 tablet by ity of disintegrat 00:00: mouth [place] ing tablet 00 every 8 Medica l (eight) Branch hours as needed for Nausea and Vomiting (N/V). ondansetron 2020-0 Yes [id number] 4mg Take 1 [facility] 4 mg 2-04 tablet by ity of disintegrat 00:00: mouth [place] ing tablet 00 every 8 Medica l (eight) Branch hours as needed for Nausea and Vomiting (N/V). ondansetron 2020-0 Yes [id number] 4mg Take 1 [facility] 4 mg 2-04 tablet by ity of disintegrat 00:00: mouth [place] ing tablet 00 every 8 Medica l (eight) Branch hours as needed for Nausea and Vomiting (N/V). ondansetron 2020-0 Yes [id number] 4mg Take 1 [facility] 4 mg 2-04 tablet by ity of disintegrat 00:00: mouth [place] ing tablet 00 every 8 Medica l (eight) Branch hours as needed for Nausea and Vomiting (N/V). ondansetron 2020-0 Yes [id number] 4mg Take 1 [facility] 4 mg 2-04 tablet by ity of disintegrat 00:00: mouth [place] ing tablet 00 every 8 Medica l (eight) Branch hours as needed for Nausea and Vomiting (N/V). traMADol 2020-0 Yes [id number] 100mg Take 1 Un you 100 mg 24 2-04 tablet by ity o f hr tablet 00:00: mouth [place] 00 daily. Medical Branch ondansetron 2020-0 Yes [id number] 4mg Take 1 [facility] 4 mg 2-04 tablet by ity of disintegrat 00:00: mouth [place] ing tablet 00 every 8 Medica l (eight) Branch hours as needed for Nausea and Vomiting (N/V). traMADol 2020-0 Yes [id number] 100mg Take 1 Un you 100 mg 24 2-04 tablet by ity o f hr tablet 00:00: mouth [place] 00 daily. Medical Branch ondansetron 2020-0 Yes [id number] 4mg Take 1 [facility] 4 mg 2-04 tablet by ity of disintegrat 00:00: mouth [place] ing tablet 00 every 8 Medica l (eight) Branch hours as needed for Nausea and Vomiting (N/V). traMADol 2020-0 Yes [id number] 100mg Take 1 Un you 100 mg 24 2-04 tablet by ity o f hr tablet 00:00: mouth [place] 00 daily. Medical Branch ondansetron 2020-0 Yes [id number] 4mg Take 1 [facility] 4 mg 2-04 tablet by ity of disintegrat 00:00: mouth [place] ing tablet 00 every 8 Medica l (eight) Branch hours as needed for Nausea and Vomiting (N/V). traMADol 2020-0 Yes [id number] 100mg Take 1 Un you 100 mg 24 2-04 tablet by ity o f hr tablet 00:00: mouth [place] 00 daily. Medical Branch ondansetron 2020-0 Yes [id number] 4mg Take 1 [facility] 4 mg 2-04 tablet by ity of disintegrat 00:00: mouth [place] ing tablet 00 every 8 Medica l (eight) Branch hours as needed for Nausea and Vomiting (N/V). traMADol 2020-0 Yes [id number] 100mg Take 1 Un you 100 mg 24 2-04 tablet by ity o f hr tablet 00:00: mouth [place] 00 daily. Medical Branch ondansetron 2020-0 Yes [id number] 4mg Take 1 [facility] 4 mg 2-04 tablet by ity of disintegrat 00:00: mouth [place] ing tablet 00 every 8 Medica l (eight) Branch hours as needed for Nausea and Vomiting (N/V). ondansetron 2020-0 2021- No [id number] 4mg Take 1 [facility] 4 mg 2-04 04-05 tablet by ity of disintegrat 00:00: 00:00 mouth [place] ing tablet 00 :00 every 8 Medica l (eight) Branch hours as needed for Nausea and Vomiting (N/V). ondansetron 2020- No [id number] 4mg Take 1 [facility] 4 mg 2-04 04-05 tablet by ity of disintegrat 00:00: 00:00 mouth [place] ing tablet 00 :00 every 8 Medica l (eight) Branch hours as needed for Nausea and Vomiting (N/V). traMADol 2019- No [id number] 100mg Take 1 U nivers 100 mg 24 2-04 -26 tablet by ity of hr tablet 00:00: 00:00 mouth [place] 00 :00 daily. Medical Branch LOSARTAN 2018-04 Yes 100mg Take 100 Univ ers POTASSIUM 0-27 mg by ity of (LOSARTAN 02:27: mouth [place] ORAL) 44 daily. Medical Branch gabapentin 2018-04 Yes 300mg Take 300 Un you (NEURONTIN) 0-27 mg by ity of 300 mg 02:27: mouth 3 [place] capsule 44 (three) Medical times Branch daily. QUEtiapine 2018-04 Yes 300mg Take 300 Un you (SEROQUEL) 0-27 mg by ity of 100 mg 02:27: mouth at [place] tablet 44 bedtime. Medical Branch escitalopra 2018-04 Yes 20mg Take 20 mg Univers m oxalate 0-27 by mouth ity of (LEXAPRO) 5 02:27: daily. [place] mg tablet 44 Medical Branch divalproex 2018-04 Yes 500mg Take 500 Un you (DEPAKOTE) 0-27 mg by ity of 125 mg EC 02:27: mouth 2 [place] tablet 44 (two) Medical times Branch daily. tiZANidine 2018-04 Yes 4mg Take 4 mg Un you 4 mg 0-27 by mouth 2 ity of capsule 02:27: (two) [place] 44 times Medical daily. Branch chlordiazeP 2018-04 Yes 10mg Take 10 mg Univers OXIDE 10 mg 0-27 by mouth 3 it y of capsule 02:27: (three) [place] 44 times Medical daily. Branch meloxicam 2018-04 Yes 7.5mg Take 7.5 Uni vers 7.5 mg 0-27 mg by ity of tablet 02:27: mouth [place] 44 daily. Medical Branch LOSARTAN 2018-04 Yes 100mg Take 100 Univ ers POTASSIUM 0-27 mg by ity of (LOSARTAN 02:27: mouth [place] ORAL) 44 daily. Medical Branch gabapentin 2018-04 Yes 300mg Take 300 Un you (NEURONTIN) 0-27 mg by ity of 300 mg 02:27: mouth 3 [place] capsule 44 (three) Medical times Branch daily. QUEtiapine 2018-04 Yes 300mg Take 300 Un you (SEROQUEL) 0-27 mg by ity of 100 mg 02:27: mouth at [place] tablet 44 bedtime. Medical Branch escitalopra 2018-04 Yes 20mg Take 20 mg [facility] m oxalate 0-27 by mouth ity of (LEXAPRO) 5 02:27: daily. [place] mg tablet 44 Medical Branch divalproex 2018-04 Yes 500mg Take 500 Un you (DEPAKOTE) 0-27 mg by ity of 125 mg EC 02:27: mouth 2 [place] tablet 44 (two) Medical times Branch daily. tiZANidine 2018-04 Yes 4mg Take 4 mg Un you 4 mg 0-27 by mouth 2 ity of capsule 02:27: (two) [place] 44 times Medical daily. Branch chlordiazeP 2018-04 Yes 10mg Take 10 mg Univers OXIDE 10 mg 0-27 by mouth 3 it y of capsule 02:27: (three) [place] 44 times Medical daily. Branch meloxicam 2018-04 Yes 7.5mg Take 7.5 Uni vers 7.5 mg 0-27 mg by ity of tablet 02:27: mouth [place] 44 daily. Medical Branch LOSARTAN 2018-04 Yes 100mg Take 100 Univ ers POTASSIUM 0-27 mg by ity of (LOSARTAN 02:27: mouth [place] ORAL) 44 daily. Medical Branch gabapentin 2018-04 Yes 300mg Take 300 Un you (NEURONTIN) 0-27 mg by ity of 300 mg 02:27: mouth 3 [place] capsule 44 (three) Medical times Branch daily. QUEtiapine 2018-04 Yes 300mg Take 300 Un you (SEROQUEL) 0-27 mg by ity of 100 mg 02:27: mouth at [place] tablet 44 bedtime. Medical Branch escitalopra 2018-04 Yes 20mg Take 20 mg [facility] m oxalate 0-27 by mouth ity of (LEXAPRO) 5 02:27: daily. [place] mg tablet 44 Medical Branch divalproex 2018-04 Yes 500mg Take 500 Un you (DEPAKOTE) 0-27 mg by ity of 125 mg EC 02:27: mouth 2 [place] tablet 44 (two) Medical times Branch daily. tiZANidine 2018-04 Yes 4mg Take 4 mg Un you 4 mg 0-27 by mouth 2 ity of capsule 02:27: (two) [place] 44 times Medical daily. Branch chlordiazeP 2018-04 Yes 10mg Take 10 mg Univers OXIDE 10 mg 0-27 by mouth 3 it y of capsule 02:27: (three) [place] 44 times Medical daily. Branch meloxicam 2018-04 Yes 7.5mg Take 7.5 Uni vers 7.5 mg 0-27 mg by ity of tablet 02:27: mouth [place] 44 daily. Medical Branch LOSARTAN 2018-04 Yes 100mg Take 100 Univ ers POTASSIUM 0-27 mg by ity of (LOSARTAN 02:27: mouth [place] ORAL) 44 daily. Medical Branch gabapentin 2018-04 Yes 300mg Take 300 Un you (NEURONTIN) 0-27 mg by ity of 300 mg 02:27: mouth 3 [place] capsule 44 (three) Medical times Branch daily. QUEtiapine 2018-04 Yes 300mg Take 300 Un you (SEROQUEL) 0-27 mg by ity of 100 mg 02:27: mouth at [place] tablet 44 bedtime. Medical Branch escitalopra 2018-04 Yes 20mg Take 20 mg [facility] m oxalate 0-27 by mouth ity of (LEXAPRO) 5 02:27: daily. [place] mg tablet 44 Medical Branch divalproex 2018-04 Yes 500mg Take 500 Un you (DEPAKOTE) 0-27 mg by ity of 125 mg EC 02:27: mouth 2 [place] tablet 44 (two) Medical times Branch daily. tiZANidine 2018-04 Yes 4mg Take 4 mg Un you 4 mg 0-27 by mouth 2 ity of capsule 02:27: (two) [place] 44 times Medical daily. Branch chlordiazeP 2018-04 Yes 10mg Take 10 mg Univers OXIDE 10 mg 0-27 by mouth 3 it y of capsule 02:27: (three) [place] 44 times Medical daily. Branch meloxicam 2018-04 Yes 7.5mg Take 7.5 Uni vers 7.5 mg 0-27 mg by ity of tablet 02:27: mouth [place] 44 daily. Medical Branch LOSARTAN 2018-04 Yes 100mg Take 100 Univ ers POTASSIUM 0-27 mg by ity of (LOSARTAN 02:27: mouth [place] ORAL) 44 daily. Medical Branch gabapentin 2018-04 Yes 300mg Take 300 Un you (NEURONTIN) 0-27 mg by ity of 300 mg 02:27: mouth 3 [place] capsule 44 (three) Medical times Branch daily. QUEtiapine 2018-04 Yes 300mg Take 300 Un you (SEROQUEL) 0-27 mg by ity of 100 mg 02:27: mouth at [place] tablet 44 bedtime. Medical Branch escitalopra 2018-04 Yes 20mg Take 20 mg [facility] m oxalate 0-27 by mouth ity of (LEXAPRO) 5 02:27: daily. [place] mg tablet 44 Medical Branch divalproex 2018-04 Yes 500mg Take 500 Un you (DEPAKOTE) 0-27 mg by ity of 125 mg EC 02:27: mouth 2 [place] tablet 44 (two) Medical times Branch daily. tiZANidine 2018-04 Yes 4mg Take 4 mg Un you 4 mg 0-27 by mouth 2 ity of capsule 02:27: (two) [place] 44 times Medical daily. Branch chlordiazeP 2018-04 Yes 10mg Take 10 mg Univers OXIDE 10 mg 0-27 by mouth 3 it y of capsule 02:27: (three) [place] 44 times Medical daily. Branch meloxicam 2018-04 Yes 7.5mg Take 7.5 Uni vers 7.5 mg 0-27 mg by ity of tablet 02:27: mouth [place] 44 daily. Medical Branch LOSARTAN 2018-04 Yes 100mg Take 100 Univ ers POTASSIUM 0-27 mg by ity of (LOSARTAN 02:27: mouth [place] ORAL) 44 daily. Medical Branch gabapentin 2018-04 Yes 300mg Take 300 Un you (NEURONTIN) 0-27 mg by ity of 300 mg 02:27: mouth 3 [place] capsule 44 (three) Medical times Branch daily. QUEtiapine 2018-04 Yes 300mg Take 300 Un you (SEROQUEL) 0-27 mg by ity of 100 mg 02:27: mouth at [place] tablet 44 bedtime. Medical Branch escitalopra 2018-04 Yes 20mg Take 20 mg Univers m oxalate 0-27 by mouth ity of (LEXAPRO) 5 02:27: daily. [place] mg tablet 44 Medical Branch divalproex 2018-04 Yes 500mg Take 500 Un you (DEPAKOTE) 0-27 mg by ity of 125 mg EC 02:27: mouth 2 [place] tablet 44 (two) Medical times Branch daily. tiZANidine 2018-04 Yes 4mg Take 4 mg Un you 4 mg 0-27 by mouth 2 ity of capsule 02:27: (two) [place] 44 times Medical daily. Branch chlordiazeP 2018-04 Yes 10mg Take 10 mg Univers OXIDE 10 mg 0-27 by mouth 3 it y of capsule 02:27: (three) [place] 44 times Medical daily. Branch meloxicam 2018-04 Yes 7.5mg Take 7.5 Uni vers 7.5 mg 0-27 mg by ity of tablet 02:27: mouth [place] 44 daily. Medical Branch ondansetron 2018-04 Yes [id number] 4mg Take 1 [facility] 4 mg tablet 0-26 tablet by ity of 00:00: mouth [place] 00 every 8 Medical (eight) Branch hours as needed for Nausea and Vomiting (N/V). ondansetron 2018-04 Yes [id number] 4mg Take 1 [facility] 4 mg tablet 0-26 tablet by ity of 00:00: mouth [place] 00 every 8 Medical (eight) Branch hours as needed for Nausea and Vomiting (N/V). ondansetron 2018-04 Yes [id number] 4mg Take 1 [facility] 4 mg tablet 0-26 tablet by ity of 00:00: mouth [place] 00 every 8 Medical (eight) Branch hours as needed for Nausea and Vomiting (N/V). ondansetron 2018-04 Yes [id number] 4mg Take 1 [facility] 4 mg tablet 0-26 tablet by ity of 00:00: mouth [place] 00 every 8 Medical (eight) Branch hours as needed for Nausea and Vomiting (N/V). ondansetron 2018-04 Yes [id number] 4mg Take 1 [facility] 4 mg tablet 0-26 tablet by ity of 00:00: mouth [place] 00 every 8 Medical (eight) Branch hours as needed for Nausea and Vomiting (N/V). ondansetron 2018-04 Yes [id number] 4mg Take 1 [facility] 4 mg tablet 0-26 tablet by ity of 00:00: mouth [place] 00 every 8 Medical (eight) Branch hours as needed for Nausea and Vomiting (N/V). ondansetron 2018-04 2020- No [id number] 4mg Take 1 [facility] 4 mg tablet 0-26 10-26 tablet by it y of 00:00: 00:00 mouth [place] 00 :00 every 8 Medical (eight) Branch hours as needed for Nausea and Vomiting (N/V). losartan 2018- Yes [id number] 100mg Take 1 Un you 100 mg 9-23 tablet by ity of tablet 00:00: mouth [place] 00 daily. Medical Branch losartan Yes [id number] 100mg Take 1 [facility] 100 mg 9-23 tablet by [facility] tablet 00:00: mouth [place] 00 daily. [facility] losartan 2018- Yes [id number] 100mg Take 1 [facility] 100 mg 9-23 tablet by ity of tablet 00:00: mouth [place] 00 daily. Medical [facility] losartan 2018- Yes [id number] 100mg Take 1 [facility] 100 mg 9-23 tablet by ity of tablet 00:00: mouth [place] 00 daily. Medical [facility] losartan 2018- Yes [id number] 100mg Take 1 [facility] 100 mg 9-23 tablet by ity of tablet 00:00: mouth [place] 00 daily. Medical [facility] losartan 2018-0 Yes [id number] 100mg Take 1 Un [facility] 100 mg 9-23 tablet by ity of tablet 00:00: mouth [place] 00 daily. Medical [facility] losartan 2018-0 Yes [id number] 100mg Take 1 [facility] 100 mg 9-23 tablet by [facility]y of tablet 00:00: mouth [place] 00 daily. Medical [facility] losartan 2018-0 Yes [id number] 100mg Take 1 [facility] 100 mg 9-23 tablet by [facility]y of tablet 00:00: mouth [place] 00 daily. Medical [facility] losartan 2018-0 Yes [id number] 100mg Take 1 [facility] 100 mg 9-23 tablet by [facility]y of tablet 00:00: mouth [place] 00 daily. Medical [facility] losartan 2019-0 Yes [id number] 100mg Take 1 [facility] 100 mg 9-23 tablet by [facility]y of tablet 00:00: mouth [place] 00 daily. Medical [facility] losartan 2018-0 Yes [id number] 100mg Take 1 [facility] 100 mg 9-23 tablet by [facility]y of tablet 00:00: mouth [place] 00 daily. Medical [facility] losartan 2018-0 Yes [id number] 100mg Take 1 [facility] 100 mg 9-23 tablet by [facility]y of tablet 00:00: mouth [place] 00 daily. Medical [facility] losartan 2019-0 Yes [id number] 100mg Take 1 [facility] 100 mg 9-23 tablet by [facility]y of tablet 00:00: mouth [place] 00 daily. Medical [facility] losartan 2019-0 Yes [id number] 100mg Take 1 [facility] 100 mg 9-23 tablet by [facility]y of tablet 00:00: mouth [place] 00 daily. Medical [facility] losartan 2019-0 Yes [id number] 100mg Take 1 [facility] 100 mg 9-23 tablet by ity of tablet 00:00: mouth [place] 00 daily. Medical [facility] losartan 2019-0 Yes [id number] 100mg Take 1 [facility] 100 mg 9-23 tablet by [facility]y of tablet 00:00: mouth [place] 00 daily. Medical [facility] losartan 2019-0 Yes [id number] 100mg Take 1 [facility] 100 mg 9-23 tablet by [facility]y of tablet 00:00: mouth [place] 00 daily. Medical [facility] losartan 2019-0 Yes [id number] 100mg Take 1 [facility] 100 mg 9-23 tablet by [facility]y of tablet 00:00: mouth [place] 00 daily. Medical [facility] losartan 2019-0 Yes [id number] 100mg Take 1 [facility] 100 mg 9-23 tablet by [facility]y of tablet 00:00: mouth [place] 00 daily. Medical [facility] losartan 2019-0 Yes [id number] 100mg Take 1 [facility] 100 mg 9-23 tablet by [facility]y of tablet 00:00: mouth [place] 00 daily. Medical [facility] losartan 2019-0 Yes [id number] 100mg Take 1 [facility] 100 mg 9-23 tablet by [facility]y of tablet 00:00: mouth [place] 00 daily. Medical [facility] losartan 2019-0 Yes [id number] 100mg Take 1 [facility] 100 mg 9-23 tablet by ity of tablet 00:00: mouth [place] 00 daily. Medical [facility] losartan 2019-0 Yes [id number] 100mg Take 1 [facility] 100 mg 9-23 tablet by [facility]y of tablet 00:00: mouth [place] 00 daily. Medical [facility] losartan 2019-0 Yes [id number] 100mg Take 1 [facility] 100 mg 9-23 tablet by [facility]y of tablet 00:00: mouth [place] 00 daily. Medical [facility] losartan 2019-0 2021- No [id number] 100mg Take 1 [facility] 100 mg 9-23 04-05 tablet by [facility]y of tablet 00:00: 00:00 mouth [place] 00 :00 daily. Medical [facility] losartan 2018-2020- No [id number] 100mg Take 1 [facility] 100 mg 01-05 tablet by it[facility] of tablet 00:00: 00:00 mouth [place] 00 :00 daily. Medical Branch traMADol 50 2018- Yes [id number] 1 by mouth [facility] mg tablet 12-05 [id number] every 4-6 ity of 00:00: hours as [place] 00 needed for Medical pain Branch traMADol 50 2018- Yes [id number] 1 by mouth [facility] mg tablet 12-05 [id number] every 4-6 ity of 00:00: hours as [place] 00 needed for Medical pain Branch traMADol 50 2018- Yes [id number] 1 by mouth [facility] mg tablet 12-05 [id number] every 4-6 ity of 00:00: hours as [place] 00 needed for Medical pain Branch traMADol 50 2018-0 Yes [id number] 1 by mouth [facility] mg tablet 12-05 [id number] every 4-6 ity of 00:00: hours as [place] 00 needed for Medical pain Branch traMADol 50 2018- Yes [id number] 1 by mouth [facility] mg tablet 12-05 [id number] every 4-6 ity of 00:00: hours as [place] 00 needed for Medical pain Branch traMADol 50 2018- Yes [id number] 1 by mouth [facility] mg tablet 12-05 [id number] every 4-6 ity of 00:00: hours as [place] 00 needed for Medical pain Branch traMADol 50 2018- Yes [id number] 1 by mouth [facility] mg tablet 12-05 [id number] every 4-6 ity of 00:00: hours as [place] 00 needed for Medical pain Branch traMADol 50 2019-0 Yes [id number] 1 by mouth [facility] mg tablet 12-05 [id number] every 4-6 ity of 00:00: hours as [place] 00 needed for Medical pain Branch traMADol 50 2018- Yes [id number] 1 by mouth [facility] mg tablet 12-05 [id number] every 4-6 ity of 00:00: hours as [place] 00 needed for Medical pain Branch traMADol 50 2018-0 Yes [id number] 1 by mouth [facility] mg tablet 12-05 [id number] every 4-6 ity of 00:00: hours as [place] 00 needed for Medical pain Branch traMADol 50 2018- Yes [id number] 1 by mouth [facility] mg tablet 12-05 [id number] every 4-6 ity of 00:00: hours as [place] 00 needed for Medical pain Branch traMADol 50 2019-0 Yes [id number] 1 by mouth [facility] mg tablet 12-05 [id number] every 4-6 ity of 00:00: hours as [place] 00 needed for Medical pain Branch traMADol 50 2019-0 Yes [id number] 1 by mouth [facility] mg tablet 12-05 [id number] every 4-6 ity of 00:00: hours as [place] 00 needed for Medical pain Branch traMADol 50 2019-0 Yes [id number] 1 by mouth [facility] mg tablet 12-05 [id number] every 4-6 ity of 00:00: hours as [place] 00 needed for Medical pain Branch traMADol 50 2019-0 Yes [id number] 1 by mouth [facility] mg tablet 12-05 [id number] every 4-6 ity of 00:00: hours as [place] 00 needed for Medical pain Branch traMADol 50 2019-0 Yes [id number] 1 by mouth [facility] mg tablet 12-05 [id number] every 4-6 ity of 00:00: hours as [place] 00 needed for Medical pain Branch traMADol 50 2019-0 Yes [id number] 1 by mouth [facility] mg tablet 12-05 [id number] every 4-6 ity of 00:00: hours as [place] 00 needed for Medical pain Branch traMADol 50 2019-0 2020- No [id number] 1 by mouth [facility] mg tablet 12-05 [id number] every 4-6 it y of 00:00: 00:00 hours as [place] 00 :00 needed for Medical pain Branch ondansetron 2019-0 2019- No 4mg 4 mg, Slow [facility] (ZOFRAN 12-01 IV Push, ity of (PF)) 22:45: 22:25 ONCE, 1 [place] injection 4 00 :00 dose, Mon Med ical mg 12/01/18 at Branch 1745, [place] morpHINE 2019-0 2019- No 4mg 4 mg, Slow Un you injection 4 12-01 IV Push, ity of mg 22:45: 22:26 ONCE, 1 [place] 00 :00 dose, Mon Medical 12/01/18 at Branch 1745, Routine ketorolac 2018-0 2019- No 30mg 30 mg, Un[facility] rs (TORADOL) 12-01 Slow IV ity of injection 20:45: 19:47 Push, [place] 30 mg 00 :00 ONCE, 1 Medical dose, Mon Branch 12/01/18 at 1545, [place]
Fa [facility]y member approving Restricted medication : Jaki POLANCO LOSARTAN 2019-0 Yes 100mg Take 100 [facility] ers POTASSIUM 8-05 mg by ity of (LOSARTAN 21:38: mouth [place] ORAL) 24 daily. Medical Branch gabapentin 2019-0 Yes 300mg Take 300 Un you (NEURONTIN) 8-05 mg by ity of 300 mg 21:38: mouth 2 [place] capsule 24 (two) Medical times Branch daily. QUEtiapine 2019-0 Yes 100mg Take 100 Un you (SEROQUEL) 8-05 mg by ity of 100 mg 21:38: mouth at [place] tablet 24 bedtime. Medical Branch escitalopra [id number] Yes 5mg Take 5 mg U nivers m oxalate 8-05 by mouth ity of (LEXAPRO) 5 21:38: daily. [place] mg tablet 24 [facility] divalproex 2019-0 Yes 125mg Take 125 Un you (DEPAKOTE) 8-05 mg by [facility] of 125 mg EC 21:38: mouth at [place] tablet 24 bedtime. [facility] diazepam 2019-0 Yes 1mg Take 1 mg [facility] ers (VALIUM 8-05 by mouth ity of ORAL) 21:38: at bedtime [place] 24 as needed. Medical Branch tiZANidine 2018-0 Yes 4mg Take 4 mg Un [facility] 4 mg 8-05 by mouth 2 ity of capsule 21:38: (two) [place] 24 times Medical daily. Branch LOSARTAN 2019-0 Yes 100mg Take 100 [facility] ers POTASSIUM 8-05 mg by ity of (LOSARTAN 21:38: mouth [place] ORAL) 24 daily. Medical Branch gabapentin 2019-0 Yes 300mg Take 300 Un you (NEURONTIN) 8-05 mg by ity of 300 mg 21:38: mouth 2 [place] capsule 24 (two) Medical times Branch daily. QUEtiapine 2019-0 Yes 100mg Take 100 Un you (SEROQUEL) 8-05 mg by ity of 100 mg 21:38: mouth at [place] tablet 24 bedtime. Medical [facility] escitalopra 2019-0 Yes 5mg Take 5 mg U nivers m oxalate 8-05 by mouth ity of (LEXAPRO) 5 21:38: daily. [place] mg tablet 24 [facility] divalproex 2019-0 Yes 125mg Take 125 Un you (DEPAKOTE) 8-05 mg by [facility] of 125 mg EC 21:38: mouth at [place] tablet 24 bedtime. [facility] diazepam 2019-0 Yes 1mg Take 1 mg [facility] (VALIUM 8-05 by mouth ity of ORAL) 21:38: at bedtime [place] 24 as needed. Medical Branch tiZANidine 0 Yes 4mg Take 4 mg Un [facility] 4 mg 8-05 by mouth 2 ity of capsule 21:38: (two) [place] 24 times Medical daily. Branch LOSARTAN [id number] Yes 100mg Take 100 [facility] ers POTASSIUM 8-05 mg by ity of (LOSARTAN 21:38: mouth [place] ORAL) 24 daily. Medical Branch gabapentin 0 Yes 300mg Take 300 Un you (NEURONTIN) 8-05 mg by ity of 300 mg 21:38: mouth 2 [place] capsule 24 (two) Medical times Branch daily. QUEtiapine [id number] Yes 100mg Take 100 Un you (SEROQUEL) 8-05 mg by ity of 100 mg 21:38: mouth at [place] tablet 24 bedtime. Medical [facility] escitalopra 0 Yes 5mg Take 5 mg U nivers m oxalate 8-05 by mouth ity of (LEXAPRO) 5 21:38: daily. [place] mg tablet 24 [facility] divalproex 0 Yes 125mg Take 125 Un you (DEPAKOTE) 8-05 mg by it[facility] of 125 mg EC 21:38: mouth at [place] tablet 24 bedtime. [facility] diazepam 2019-0 Yes 1mg Take 1 mg [facility] (VALIUM 8-05 by mouth ity of ORAL) 21:38: at bedtime [place] 24 as needed. Medical Branch tiZANidine 2019-0 Yes 4mg Take 4 mg Un [facility] 4 mg 8-05 by mouth 2 ity of capsule 21:38: (two) [place] 24 times Medical daily. Branch LOSARTAN 2019-0 Yes 100mg Take 100 [facility] ers POTASSIUM 8-05 mg by ity of (LOSARTAN 21:38: mouth [place] ORAL) 24 daily. Medical Branch gabapentin 2019-0 Yes 300mg Take 300 Un you (NEURONTIN) 8-05 mg by ity of 300 mg 21:38: mouth 2 [place] capsule 24 (two) Medical times Branch daily. QUEtiapine 2019-0 Yes 100mg Take 100 Un you (SEROQUEL) 8-05 mg by ity of 100 mg 21:38: mouth at [place] tablet 24 bedtime. Medical [facility] escitalopra 2019-0 Yes 5mg Take 5 mg U nivers m oxalate 8-05 by mouth ity of (LEXAPRO) 5 21:38: daily. [place] mg tablet 24 [facility] divalproex 2019-0 Yes 125mg Take 125 Un you (DEPAKOTE) 8-05 mg by ity of 125 mg EC 21:38: mouth at [place] tablet 24 bedtime. [facility] diazepam 2019-0 Yes 1mg Take 1 mg [facility] (VALIUM 8-05 by mouth ity of ORAL) 21:38: at bedtime [place] 24 as needed. Medical Branch tiZANidine 0 Yes 4mg Take 4 mg Un you 4 mg 8-05 by mouth 2 ity of capsule 21:38: (two) [place] 24 times Medical daily. Branch LOSARTAN 2019-0 Yes 100mg Take 100 [facility] ers POTASSIUM 8-05 mg by ity of (LOSARTAN 21:38: mouth [place] ORAL) 24 daily. Medical Branch gabapentin 2019-0 Yes 300mg Take 300 Un you (NEURONTIN) 8-05 mg by ity of 300 mg 21:38: mouth 2 [place] capsule 24 (two) Medical times Branch daily. QUEtiapine 2019-0 Yes 100mg Take 100 Un you (SEROQUEL) 8-05 mg by ity of 100 mg 21:38: mouth at [place] tablet 24 bedtime. Medical [facility] escitalopra 2019-0 Yes 5mg Take 5 mg U nivers m oxalate 8-05 by mouth ity of (LEXAPRO) 5 21:38: daily. [place] mg tablet 24 [facility] divalproex 2019-0 Yes 125mg Take 125 Un you (DEPAKOTE) 8-05 mg by ity of 125 mg EC 21:38: mouth at [place] tablet 24 bedtime. [facility] diazepam 2019-0 Yes 1mg Take 1 mg [facility] (VALIUM 8-05 by mouth ity of ORAL) 21:38: at bedtime [place] 24 as needed. Medical Branch tiZANidine 2019-0 Yes 4mg Take 4 mg Un [facility] 4 mg 8-05 by mouth 2 ity of capsule 21:38: (two) [place] 24 times Medical daily. Branch LOSARTAN 2019-0 Yes 100mg Take 100 [facility] ers POTASSIUM 8-05 mg by ity of (LOSARTAN 21:38: mouth [place] ORAL) 24 daily. Medical Branch gabapentin 2019-0 Yes 300mg Take 300 Un you (NEURONTIN) 8-05 mg by ity of 300 mg 21:38: mouth 2 [place] capsule 24 (two) Medical times Branch daily. QUEtiapine 2019-0 Yes 100mg Take 100 Un you (SEROQUEL) 8-05 mg by ity of 100 mg 21:38: mouth at [place] tablet 24 bedtime. Medical [facility] escitalopra 2019-0 Yes 5mg Take 5 mg U nivers m oxalate 8-05 by mouth ity of (LEXAPRO) 5 21:38: daily. [place] mg tablet 24 [facility] divalproex 0 Yes 125mg Take 125 Un you (DEPAKOTE) 8-05 mg by ity of 125 mg EC 21:38: mouth at [place] tablet 24 bedtime. [facility] diazepam 2019-0 Yes 1mg Take 1 mg [facility] (VALIUM 8-05 by mouth ity of ORAL) 21:38: at bedtime [place] 24 as needed. Medical Branch tiZANidine 2019-0 Yes 4mg Take 4 mg Un [facility] 4 mg 8-05 by mouth 2 ity of capsule 21:38: (two) [place] 24 times Medical daily. Branch LOSARTAN 2019-0 Yes 100mg Take 100 [facility] POTASSIUM 8-05 mg by ity of (LOSARTAN 21:38: mouth [place] ORAL) 24 daily. Medical Branch gabapentin 2019-0 Yes 300mg Take 300 Un you (NEURONTIN) 8-05 mg by ity of 300 mg 21:38: mouth 2 [place] capsule 24 (two) Medical times Branch daily. QUEtiapine 2019-0 Yes 100mg Take 100 Un you (SEROQUEL) 8-05 mg by ity of 100 mg 21:38: mouth at [place] tablet 24 bedtime. Medical [facility] escitalopra 2019-0 Yes 5mg Take 5 mg U nivers m oxalate 8-05 by mouth ity of (LEXAPRO) 5 21:38: daily. [place] mg tablet 24 [facility] divalproex 2019-0 Yes 125mg Take 125 Un you (DEPAKOTE) 8-05 mg by ity of 125 mg EC 21:38: mouth at [place] tablet 24 bedtime. [facility] diazepam 2019-0 Yes 1mg Take 1 mg [facility] (VALIUM 8-05 by mouth ity of ORAL) 21:38: at bedtime [place] 24 as needed. Medical Branch tiZANidine 2019-0 Yes 4mg Take 4 mg Un [facility] 4 mg 8-05 by mouth 2 ity of capsule 21:38: (two) [place] 24 times Medical daily. Branch LOSARTAN 2019-0 Yes 100mg Take 100 [facility] POTASSIUM 8-05 mg by ity of (LOSARTAN 21:38: mouth [place] ORAL) 24 daily. Medical Branch gabapentin 2019-0 Yes 300mg Take 300 Un you (NEURONTIN) 8-05 mg by ity of 300 mg 21:38: mouth 2 [place] capsule 24 (two) Medical times Branch daily. QUEtiapine 2019-0 Yes 100mg Take 100 Un you (SEROQUEL) 8-05 mg by ity of 100 mg 21:38: mouth at [place] tablet 24 bedtime. Medical [facility] escitalopra 2019-0 Yes 5mg Take 5 mg U nivers m oxalate 8-05 by mouth ity of (LEXAPRO) 5 21:38: daily. [place] mg tablet 24 [facility] divalproex 2019-0 Yes 125mg Take 125 Un you (DEPAKOTE) 8-05 mg by ity of 125 mg EC 21:38: mouth at [place] tablet 24 bedtime. [facility] diazepam 2019-0 Yes 1mg Take 1 mg [facility] (VALIUM 8-05 by mouth ity of ORAL) 21:38: at bedtime [place] 24 as needed. Medical Branch tiZANidine 2019-0 Yes 4mg Take 4 mg Un [facility] 4 mg 8-05 by mouth 2 ity of capsule 21:38: (two) [place] 24 times Medical daily. Branch LOSARTAN 2019-0 Yes 100mg Take 100 [facility] ers POTASSIUM 8-05 mg by ity of (LOSARTAN 21:38: mouth [place] ORAL) 24 daily. Medical Branch gabapentin 2019-0 Yes 300mg Take 300 Un you (NEURONTIN) 8-05 mg by ity of 300 mg 21:38: mouth 2 [place] capsule 24 (two) Medical times Branch daily. QUEtiapine 2019-0 Yes 100mg Take 100 Un you (SEROQUEL) 8-05 mg by ity of 100 mg 21:38: mouth at [place] tablet 24 bedtime. Medical Branch escitalopra [id number] Yes 5mg Take 5 mg U nivers m oxalate 8-05 by mouth ity of (LEXAPRO) 5 21:38: daily. [place] mg tablet 24 [facility] divalproex Yes 125mg Take 125 Un you (DEPAKOTE) 8-05 mg by ity of 125 mg EC 21:38: mouth at [place] tablet 24 bedtime. [facility] diazepam 2019 Yes 1mg Take 1 mg [facility] (VALIUM 8-05 by mouth ity of ORAL) 21:38: at bedtime [place] 24 as needed. Medical Branch tiZANidine Yes 4mg Take 4 mg Un you 4 mg 8-05 by mouth 2 ity of capsule 21:38: (two) [place] 24 times Medical daily. Branch LOSARTAN Yes 100mg Take 100 [facility] POTASSIUM 8-05 mg by ity of (LOSARTAN 21:38: mouth [place] ORAL) 24 daily. Medical Branch gabapentin Yes 300mg Take 300 Un you (NEURONTIN) 8-05 mg by ity of 300 mg 21:38: mouth 2 [place] capsule 24 (two) Medical times Branch daily. QUEtiapine [id number] Yes 100mg Take 100 Un you (SEROQUEL) 8-05 mg by ity of 100 mg 21:38: mouth at [place] tablet 24 bedtime. Medical Branch escitalopra Yes 5mg Take 5 mg U nivers m oxalate 8-05 by mouth ity of (LEXAPRO) 5 21:38: daily. [place] mg tablet 24 [facility] divalproex Yes 125mg Take 125 Un you (DEPAKOTE) 8-05 mg by ity of 125 mg EC 21:38: mouth at [place] tablet 24 bedtime. [facility] diazepam Yes 1mg Take 1 mg [facility] (VALIUM 8-05 by mouth ity of ORAL) 21:38: at bedtime [place] 24 as needed. Medical Branch tiZANidine Yes 4mg Take 4 mg Un you 4 mg 8-05 by mouth 2 ity of capsule 21:38: (two) [place] 24 times Medical daily. Branch LOSARTAN 2019-0 Yes 100mg Take 100 [facility] POTASSIUM 8-05 mg by ity of (LOSARTAN 21:38: mouth [place] ORAL) 24 daily. Medical Branch gabapentin 2019-0 Yes 300mg Take 300 Un you (NEURONTIN) 8-05 mg by ity of 300 mg 21:38: mouth 2 [place] capsule 24 (two) Medical times Branch daily. QUEtiapine 2019-0 Yes 100mg Take 100 Un you (SEROQUEL) 8-05 mg by ity of 100 mg 21:38: mouth at [place] tablet 24 bedtime. Medical [facility] escitalopra 2019-0 Yes 5mg Take 5 mg U nivers m oxalate 8-05 by mouth ity of (LEXAPRO) 5 21:38: daily. [place] mg tablet 24 [facility] divalproex 2019-0 Yes 125mg Take 125 Un you (DEPAKOTE) 8-05 mg by ity of 125 mg EC 21:38: mouth at [place] tablet 24 bedtime. [facility] diazepam 2019-0 Yes 1mg Take 1 mg [facility] (VALIUM 8-05 by mouth ity of ORAL) 21:38: at bedtime [place] 24 as needed. Medical Branch tiZANidine 2019-0 Yes 4mg Take 4 mg Un you 4 mg 8-05 by mouth 2 ity of capsule 21:38: (two) [place] 24 times Medical daily. Branch LOSARTAN 2019-0 Yes 100mg Take 100 [facility] POTASSIUM 8-05 mg by ity of (LOSARTAN 21:38: mouth [place] ORAL) 24 daily. Medical Branch gabapentin 2019-0 Yes 300mg Take 300 Un you (NEURONTIN) 8-05 mg by ity of 300 mg 21:38: mouth 2 [place] capsule 24 (two) Medical times Branch daily. QUEtiapine 2019-0 Yes 100mg Take 100 Un you (SEROQUEL) 8-05 mg by ity of 100 mg 21:38: mouth at [place] tablet 24 bedtime. Medical Branch escitalopra 2019-0 Yes 5mg Take 5 mg U nivers m oxalate 8-05 by mouth ity of (LEXAPRO) 5 21:38: daily. [place] mg tablet 24 [facility] divalproex 2019-0 Yes 125mg Take 125 Un you (DEPAKOTE) 8-05 mg by ity of 125 mg EC 21:38: mouth at [place] tablet 24 bedtime. [facility] diazepam 2019-0 Yes 1mg Take 1 mg [facility] (VALIUM 8-05 by mouth ity of ORAL) 21:38: at bedtime [place] 24 as needed. Medical Branch tiZANidine 2019-0 Yes 4mg Take 4 mg Un you 4 mg 8-05 by mouth 2 ity of capsule 21:38: (two) [place] 24 times Medical daily. Branch LOSARTAN 2019-0 Yes 100mg Take 100 [facility] ers POTASSIUM 8-05 mg by ity of (LOSARTAN 21:38: mouth [place] ORAL) 24 daily. Medical Branch gabapentin 2019-0 Yes 300mg Take 300 Un you (NEURONTIN) 8-05 mg by ity of 300 mg 21:38: mouth 2 [place] capsule 24 (two) Medical times Branch daily. QUEtiapine 2019-0 Yes 100mg Take 100 Un you (SEROQUEL) 8-05 mg by ity of 100 mg 21:38: mouth at [place] tablet 24 bedtime. Medical Branch escitalopra 2019-0 Yes 5mg Take 5 mg U nivers m oxalate 8-05 by mouth ity of (LEXAPRO) 5 21:38: daily. [place] mg tablet 24 [facility] divalproex 2019-0 Yes 125mg Take 125 Un you (DEPAKOTE) 8-05 mg by ity of 125 mg EC 21:38: mouth at [place] tablet 24 bedtime. [facility] diazepam 2019-0 Yes 1mg Take 1 mg [facility] (VALIUM 8-05 by mouth ity of ORAL) 21:38: at bedtime [place] 24 as needed. Medical Branch tiZANidine 2019-0 Yes 4mg Take 4 mg Un you 4 mg 8-05 by mouth 2 ity of capsule 21:38: (two) [place] 24 times Medical daily. Branch LOSARTAN 2019-0 Yes 100mg Take 100 Univ ers POTASSIUM 8-05 mg by ity of (LOSARTAN 21:38: mouth [place] ORAL) 24 daily. Medical Branch gabapentin 2019-0 Yes 300mg Take 300 Un you (NEURONTIN) 8-05 mg by ity of 300 mg 21:38: mouth 2 [place] capsule 24 (two) Medical times Branch daily. QUEtiapine 2019-0 Yes 100mg Take 100 Un you (SEROQUEL) 8-05 mg by ity of 100 mg 21:38: mouth at [place] tablet 24 bedtime. Medical Branch escitalopra 2019-0 Yes 5mg Take 5 mg U nivers m oxalate 8-05 by mouth ity of (LEXAPRO) 5 21:38: daily. [place] mg tablet 24 [facility] divalproex 2019-0 Yes 125mg Take 125 Un you (DEPAKOTE) 8-05 mg by ity of 125 mg EC 21:38: mouth at [place] tablet 24 bedtime. [facility] diazepam 2019-0 Yes 1mg Take 1 mg [facility] (VALIUM 8-05 by mouth ity of ORAL) 21:38: at bedtime [place] 24 as needed. Medical Branch tiZANidine [id number] Yes 4mg Take 4 mg Un you 4 mg 8-05 by mouth 2 ity of capsule 21:38: (two) [place] 24 times Medical daily. Branch LOSARTAN 2019-0 Yes 100mg Take 100 [facility] ers POTASSIUM 8-05 mg by ity of (LOSARTAN 21:38: mouth [place] ORAL) 24 daily. Medical Branch gabapentin 2019-0 Yes 300mg Take 300 Un you (NEURONTIN) 8-05 mg by ity of 300 mg 21:38: mouth 2 [place] capsule 24 (two) Medical times Branch daily. QUEtiapine 2019-0 Yes 100mg Take 100 Un you (SEROQUEL) 8-05 mg by ity of 100 mg 21:38: mouth at [place] tablet 24 bedtime. Medical Branch escitalopra 0 Yes 5mg Take 5 mg U nivers m oxalate 8-05 by mouth ity of (LEXAPRO) 5 21:38: daily. [place] mg tablet 24 [facility] divalproex 0 Yes 125mg Take 125 Un you (DEPAKOTE) 8-05 mg by ity of 125 mg EC 21:38: mouth at [place] tablet 24 bedtime. Medical [facility] diazepam 2019-0 Yes 1mg Take 1 mg [facility] (VALIUM 8-05 by mouth ity of ORAL) 21:38: at bedtime [place] 24 as needed. Medical Branch tiZANidine 2019-0 Yes 4mg Take 4 mg Un you 4 mg 8-05 by mouth 2 ity of capsule 21:38: (two) [place] 24 times Medical daily. Branch pantoprazol 2019-0 Yes 40mg 40 mg, [facility] ers e 8-05 Oral, BID, ity of (PROTONIX) 13:00: First dose [place] [facility] tablet 00 on Mon Medical 40 mg 11/17/18 at Branch 0800, Until Discontinu ed, Routine FENTanyl PF 2019- No 75ug 75 mcg, Un you (SUBLIMAZE 11-17 Slow IV ity o f (PF)) 02:15: 01:11 Push, [place] injection 00 :00 ONCE, 1 Medical 75 mcg dose, Sun Branch 11/16/18 at 2115, [place] pantoprazol Yes [id number] 40mg Take 1 [facility] e 40 mg EC 8-05 tablet by ity of tablet 00:00: mouth 2 [place] (two) Medical times Branch daily. proMETHazin Yes [id number] 25mg Take 1 [facility] e 25 mg 8-05 tablet by ity of tablet 00:00: mouth [place] 00 every 6 Medical (six) Branch hours as needed for N/V alternatin g with Ondansetro n. HYDROcodone Yes [id number] 1{tbl} Take 1 [facility] -acetaminop 8-05 tablet by ity of hen 7.5-325 00:00: mouth [place] mg per 00 every 6 Medical tablet (six) Branch hours as needed (Pain scal 7-10). pantoprazol Yes [id number] 40mg Take 1 [facility] e 40 mg EC 8-05 tablet by ity of tablet 00:00: mouth 2 [place] 00 (two) Medical times Branch daily. proMETHazin Yes [id number] 25mg Take 1 [facility] e 25 mg 8-05 tablet by ity of tablet 00:00: mouth [place] 00 every 6 Medical (six) Branch hours as needed for N/V alternatin g with Ondansetro n. HYDROcodone Yes [id number] 1{tbl} Take 1 [facility] -acetaminop 8-05 tablet by ity of hen 7.5-325 00:00: mouth [place] mg per 00 every 6 Medical tablet (six) Branch hours as needed (Pain scal 7-10). pantoprazol Yes [id number] 40mg Take 1 [facility] e 40 mg EC 8-05 tablet by ity of tablet 00:00: mouth 2 [place] 00 (two) Medical times Branch daily. proMETHazin Yes [id number] 25mg Take 1 [facility] e 25 mg 8-05 tablet by ity of tablet 00:00: mouth [place] 00 every 6 Medical (six) Branch hours as needed for N/V alternatin g with Ondansetro n. HYDROcodone Yes [id number] 1{tbl} Take 1 [facility] -acetaminop 8-05 tablet by ity of hen 7.5-325 00:00: mouth [place] mg per 00 every 6 Medical tablet (six) Branch hours as needed (Pain scal 7-10). pantoprazol Yes [id number] 40mg Take 1 [facility] e 40 mg EC 8-05 tablet by ity of tablet 00:00: mouth 2 [place] 00 (two) Medical times Branch daily. proMETHazin Yes [id number] 25mg Take 1 [facility] e 25 mg 8-05 tablet by ity of tablet 00:00: mouth [place] 00 every 6 Medical (six) Branch hours as needed for N/V alternatin g with Ondansetro n. HYDROcodone Yes [id number] 1{tbl} Take 1 [facility] -acetaminop 8-05 tablet by ity of hen 7.5-325 00:00: mouth [place] mg per 00 every 6 Medical tablet (six) Branch hours as needed (Pain scal 7-10). pantoprazol Yes [id number] 40mg Take 1 [facility] e 40 mg EC 8-05 tablet by ity of tablet 00:00: mouth 2 [place] 00 (two) Medical times Branch daily. proMETHazin Yes [id number] 25mg Take 1 [facility] e 25 mg 8-05 tablet by ity of tablet 00:00: mouth [place] 00 every 6 Medical (six) Branch hours as needed for N/V alternatin g with Ondansetro n. HYDROcodone Yes [id number] 1{tbl} Take 1 [facility] -acetaminop 8-05 tablet by ity of hen 7.5-325 00:00: mouth [place] mg per 00 every 6 Medical tablet (six) Branch hours as needed (Pain scal 7-10). pantoprazol 2018- Yes [id number] 40mg Take 1 [facility] e 40 mg EC 8-05 tablet by ity of tablet 00:00: mouth 2 [place] 00 (two) Medical times Branch daily. proMETHazin Yes [id number] 25mg Take 1 [facility] e 25 mg 8-05 tablet by ity of tablet 00:00: mouth [place] 00 every 6 Medical (six) Branch hours as needed for N/V alternatin g with Ondansetro n. HYDROcodone Yes [id number] 1{tbl} Take 1 [facility] -acet[facility]op 8-05 tablet by [facility] 7.5-325 00:00: mouth [place] mg per 00 every 6 Medical tablet (six) Branch hours as needed (Pain scal 7-10). pantoprazol Yes [id number] 40mg Take 1 [facility] 40 mg EC 8-05 tablet by [facility] tablet 00:00: mouth 2 [place] 00 (two) Medical times Branch daily. proMETHazin Yes [id number] 25mg Take 1 [facility] 25 mg 8-05 tablet by [facility] tablet 00:00: mouth [place] 00 every 6 Medical (six) Branch hours as needed for N/V alternatin g with Ondansetro n. HYDROcodone Yes [id number] 1{tbl} Take 1 [facility] -acetaminop 8-05 tablet by [facility] 7.5-325 00:00: mouth [place] mg per 00 every 6 Medical tablet (six) Branch hours as needed (Pain scal 7-10). pantoprazol Yes [id number] 40mg Take 1 [facility] 40 mg EC 8-05 tablet by [facility] tablet 00:00: mouth 2 [place] 00 (two) Medical times Branch daily. proMETHazin Yes [id number] 25mg Take 1 [facility] 25 mg 8-05 tablet by [facility] tablet 00:00: mouth [place] 00 every 6 Medical (six) Branch hours as needed for N/V alternatin g with Ondansetro n. HYDROcodone Yes [id number] 1{tbl} Take 1 [facility] -acetaminop 8-05 tablet by [facility] 7.5-325 00:00: mouth [place] mg per 00 every 6 Medical tablet (six) Branch hours as needed (Pain scal 7-10). pantoprazol Yes [id number] 40mg Take 1 [facility] 40 mg EC 8-05 tablet by [facility] tablet 00:00: mouth 2 [place] 00 (two) Medical times Branch daily. proMETHazin Yes [id number] 25mg Take 1 [facility] 25 mg 8-05 tablet by [facility] tablet 00:00: mouth [place] 00 every 6 Medical (six) Branch hours as needed for N/V alternatin g with Ondansetro n. HYDROcodone Yes [id number] 1{tbl} Take 1 [facility] -acetaminop 8-05 tablet by [facility] 7.5-325 00:00: mouth [place] mg per 00 every 6 Medical tablet (six) Branch hours as needed (Pain scal 7-10). pantoprazol Yes [id number] 40mg Take 1 [facility] 40 mg EC 8-05 tablet by [facility] tablet 00:00: mouth 2 (two) Medical times Branch daily. proMETHazin Yes [id number] 25mg Take 1 [facility] 25 mg 8-05 tablet by [facility] tablet 00:00: mouth [place] 00 every 6 Medical (six) Branch hours as needed for N/V alternatin g with Ondansetro n. HYDROcodone Yes [id number] 1{tbl} Take 1 [facility] -acetaminop 8-05 tablet by [facility] 7.5-325 00:00: mouth [place] mg per 00 every 6 Medical tablet (six) Branch hours as needed (Pain scal 7-10). pantoprazol Yes [id number] 40mg Take 1 [facility] 40 mg EC 8-05 tablet by [facility] tablet 00:00: mouth 2 (two) Medical times Branch daily. proMETHazin Yes [id number] 25mg Take 1 [facility] 25 mg 8-05 tablet by [facility] tablet 00:00: mouth [place] 00 every 6 Medical (six) Branch hours as needed for N/V alternatin g with Ondansetro n. HYDROcodone Yes [id number] 1{tbl} Take 1 [facility] -acetaminop 8-05 tablet by [facility] 7.5-325 00:00: mouth [place] mg per 00 every 6 Medical tablet (six) Branch hours as needed (Pain scal 7-10). pantoprazol Yes [id number] 40mg Take 1 [facility] 40 mg EC 8-05 tablet by [facility] tablet 00:00: mouth 2 (two) Medical times Branch daily. proMETHazin Yes [id number] 25mg Take 1 [facility] 25 mg 8-05 tablet by [facility] tablet 00:00: mouth [place] 00 every 6 Medical (six) Branch hours as needed for N/V alternatin g with Ondansetro n. HYDROcodone Yes [id number] 1{tbl} Take 1 [facility] -acetaminop 8-05 tablet by [facility] 7.5-325 00:00: mouth [place] mg per 00 every 6 Medical tablet (six) Branch hours as needed (Pain scal 7-10). pantoprazol Yes [id number] 40mg Take 1 [facility] 40 mg EC 8-05 tablet by [facility] tablet 00:00: mouth 2 (two) Medical times Branch daily. proMETHazin Yes [id number] 25mg Take 1 [facility] 25 mg 8-05 tablet by [facility] tablet 00:00: mouth [place] 00 every 6 Medical (six) Branch hours as needed for N/V alternatin g with Ondansetro n. HYDROcodone Yes [id number] 1{tbl} Take 1 [facility] -acetaminop 8-05 tablet by [facility] 7.5-325 00:00: mouth [place] mg per 00 every 6 Medical tablet (six) Branch hours as needed (Pain scal 7-10). pantoprazol Yes [id number] 40mg Take 1 [facility] 40 mg EC 8-05 tablet by [facility] tablet 00:00: mouth 2 (two) Medical times Branch daily. proMETHazin Yes [id number] 25mg Take 1 [facility] 25 mg 8-05 tablet by [facility] tablet 00:00: mouth [place] 00 every 6 Medical (six) Branch hours as needed for N/V alternatin g with Ondansetro n. HYDROcodone 2018- Yes [id number] 1{tbl} Take 1 [facility] -acetaminop 8-05 tablet by [facility] 7.5-325 00:00: mouth [place] mg per 00 every 6 Medical tablet (six) Branch hours as needed (Pain scal 7-10). pantoprazol 2018- Yes [id number] 40mg Take 1 [facility] 40 mg EC 8-05 tablet by [facility] tablet 00:00: mouth 2 [place] 00 (two) Medical times Branch daily. proMETHazin Yes [id number] 25mg Take 1 [facility] 25 mg 8-05 tablet by [facility] tablet 00:00: mouth [place] 00 every 6 Medical (six) Branch hours as needed for N/V alternatin g with Ondansetro n. HYDROcodone Yes [id number] 1{tbl} Take 1 [facility] -acetaminop 8-05 tablet by [facility] 7.5-325 00:00: mouth [place] mg per 00 every 6 Medical tablet (six) Branch hours as needed (Pain scal 7-10). pantoprazol Yes [id number] 40mg Take 1 [facility] 40 mg EC 8-05 tablet by [facility] tablet 00:00: mouth 2 [place] 00 (two) Medical times Branch daily. proMETHazin Yes [id number] 25mg Take 1 [facility] 25 mg 8-05 tablet by [facility] tablet 00:00: mouth [place] 00 every 6 Medical (six) Branch hours as needed for N/V alternatin g with Ondansetro n. HYDROcodone Yes [id number] 1{tbl} Take 1 [facility] -acetaminop 8-05 tablet by [facility] 7.5-325 00:00: mouth [place] mg per 00 every 6 Medical tablet (six) Branch hours as needed (Pain scal 7-10). pantoprazol Yes [id number] 40mg Take 1 [facility] 40 mg EC 8-05 tablet by [facility] tablet 00:00: mouth 2 (two) Medical times Branch daily. proMETHazin Yes [id number] 25mg Take 1 [facility] 25 mg 8-05 tablet by [facility] tablet 00:00: mouth [place] 00 every 6 Medical (six) Branch hours as needed for N/V alternatin g with Ondansetro n. HYDROcodone Yes [id number] 1{tbl} Take 1 [facility] -acetaminop 8-05 tablet by [facility] 7.5-325 00:00: mouth [place] mg per 00 every 6 Medical tablet (six) Branch hours as needed (Pain scal 7-10). pantoprazol Yes [id number] 40mg Take 1 [facility] 40 mg EC 8-05 tablet by [facility] tablet 00:00: mouth 2 [place] 00 (two) Medical times Branch daily. proMETHazin Yes [id number] 25mg Take 1 [facility] 25 mg 8-05 tablet by [facility] tablet 00:00: mouth [place] 00 every 6 Medical (six) Branch hours as needed for N/V alternatin g with Ondansetro n. HYDROcodone Yes [id number] 1{tbl} Take 1 [facility] -acetaminop 8-05 tablet by [facility] 7.5-325 00:00: mouth [place] mg per 00 every 6 Medical tablet (six) Branch hours as needed (Pain scal 7-10). pantoprazol Yes [id number] 40mg Take 1 [facility] 40 mg EC 8-05 tablet by [facility] tablet 00:00: mouth 2 [place] 00 (two) Medical times Branch daily. proMETHazin Yes [id number] 25mg Take 1 [facility] 25 mg 8-05 tablet by [facility] tablet 00:00: mouth [place] 00 every 6 Medical (six) Branch hours as needed for N/V alternatin g with Ondansetro n. HYDROcodone Yes [id number] 1{tbl} Take 1 [facility] -acetaminop 8-05 tablet by [facility] 7.5-325 00:00: mouth [place] mg per 00 every 6 Medical tablet (six) Branch hours as needed (Pain scal 7-10). HYDROcodone Yes [id number] 1{tbl} Take 1 [facility] -acetaminop 8-05 tablet by [facility] 7.5-325 00:00: mouth [place] mg per 00 every 6 Medical tablet (six) Branch hours as needed (Pain scal 7-10). HYDROcodone Yes [id number] 1{tbl} Take 1 [facility] -acetaminop 8-05 tablet by [facility] 7.5-325 00:00: mouth [place] mg per 00 every 6 Medical tablet (six) Branch hours as needed (Pain scal 7-10). HYDROcodone Yes [id number] 1{tbl} Take 1 [facility] -acetaminop 8-05 tablet by [facility] 7.5-325 00:00: mouth [place] mg per 00 every 6 Medical tablet (six) Branch hours as needed (Pain scal 7-10). HYDROcodone Yes [id number] 1{tbl} Take 1 [facility] -acetaminop 8-05 tablet by [facility] 7.5-325 00:00: mouth [place] mg per 00 every 6 Medical tablet (six) Branch hours as needed (Pain scal 7-10). HYDROcodone Yes [id number] 1{tbl} Take 1 [facility] -acetaminop 8-05 tablet by [facility] 7.5-325 00:00: mouth [place] mg per 00 every 6 Medical tablet (six) Branch hours as needed (Pain scal 7-10). HYDROcodone Yes [id number] 1{tbl} Take 1 [facility] -acetaminop 8-05 tablet by [facility] 7.5-325 00:00: mouth [place] mg per 00 every 6 Medical tablet (six) Branch hours as needed (Pain scal 7-10). HYDROcodone Yes [id number] 1{tbl} Take 1 [facility] -acetaminop 8-05 tablet by [facility] 7.5-325 00:00: mouth [place] mg per 00 every 6 Medical tablet (six) Branch hours as needed (Pain scal 7-10). HYDROcodone Yes [id number] 1{tbl} Take 1 [facility] -acetaminop 8-05 tablet by [facility] 7.5-325 00:00: mouth [place] mg per 00 every 6 Medical tablet (six) Branch hours as needed (Pain scal 7-10). HYDROcodone Yes [id number] 1{tbl} Take 1 [facility] -acetaminop 8-05 tablet by [facility] hen 7.5-325 00:00: mouth [place] mg per 00 every 6 Medical tablet (six) Branch hours as needed (Pain scal 7-10). HYDROcodone Yes [id number] 1{tbl} Take 1 [facility] -acetaminop 8-05 tablet by [facility] 7.5-325 00:00: mouth [place] mg per 00 every 6 Medical tablet (six) Branch hours as needed (Pain scal 7-10). HYDROcodone Yes [id number] 1{tbl} Take 1 [facility] -acetaminop 8-05 tablet by [facility] hen 7.5-325 00:00: mouth [place] mg per 00 every 6 Medical tablet (six) Branch hours as needed (Pain scal 7-10). HYDROcodone Yes [id number] 1{tbl} Take 1 [facility] -acetaminop 8-05 tablet by [facility] 7.5-325 00:00: mouth [place] mg per 00 every 6 Medical tablet (six) Branch hours as needed (Pain scal 7-10). HYDROcodone Yes [id number] 1{tbl} Take 1 [facility] -acetaminop 8-05 tablet by [facility] 7.5-325 00:00: mouth [place] mg per 00 every 6 Medical tablet (six) Branch hours as needed (Pain scal 7-10). HYDROcodone Yes [id number] 1{tbl} Take 1 [facility] -acetaminop 8-05 tablet by [facility] 7.5-325 00:00: mouth [place] mg per 00 every 6 Medical tablet (six) Branch hours as needed (Pain scal 7-10). HYDROcodone Yes [id number] 1{tbl} Take 1 [facility] -acetaminop 8-05 tablet by [facility] hen 7.5-325 00:00: mouth [place] mg per 00 every 6 Medical tablet (six) Branch hours as needed (Pain scal 7-10). HYDROcodone Yes [id number] 1{tbl} Take 1 [facility] -acetaminop 8-05 tablet by [facility] hen 7.5-325 00:00: mouth [place] mg per 00 every 6 Medical tablet (six) Branch hours as needed (Pain scal 7-10). HYDROcodone Yes [id number] 1{tbl} Take 1 [facility] -acetaminop 8-05 tablet by [facility] hen 7.5-325 00:00: mouth [place] mg per 00 every 6 Medical tablet (six) Branch hours as needed (Pain scal 7-10). HYDROcodone Yes [id number] 1{tbl} Take 1 [facility] -acetaminop 8-05 tablet by [facility] hen 7.5-325 00:00: mouth [place] mg per 00 every 6 Medical tablet (six) Branch hours as needed (Pain scal 7-10). HYDROcodone Yes [id number] 1{tbl} Take 1 [facility] -acetaminop 8-05 tablet by [facility] hen 7.5-325 00:00: mouth [place] mg per 00 every 6 Medical tablet (six) Branch hours as needed (Pain scal 7-10). HYDROcodone Yes [id number] 1{tbl} Take 1 [facility] -acetaminop 8-05 tablet by [facility] hen 7.5-325 00:00: mouth [place] mg per 00 every 6 Medical tablet (six) Branch hours as needed (Pain scal 7-10). pantoprazol Yes [id number] 40mg Take 1 [facility] 40 mg EC 8-05 tablet by [facility] tablet 00:00: mouth 2 [place] 00 (two) Medical times Branch daily. ondansetron Yes [id number] 4mg Take 1 [facility] 4 mg tablet 8-05 tablet by [facility] of 00:00: mouth [place] 00 every 8 Medical (eight) Branch hours as needed for Nausea and Vomiting (N/V). proMETHazin Yes [id number] 25mg Take 1 [facility] 25 mg 8-05 tablet by [facility] tablet 00:00: mouth [place] 00 every 6 Medical (six) Branch hours as needed for N/V alternatin g with Ondansetro n. HYDROcodone Yes [id number] 1{tbl} Take 1 [facility] -acetaminop 8-05 tablet by [facility] hen 7.5-325 00:00: mouth [place] mg per 00 every 6 Medical tablet (six) Branch hours as needed (Pain scal 7-10). pantoprazol Yes [id number] 40mg Take 1 [facility] 40 mg EC 8-05 tablet by [facility] tablet 00:00: mouth 2 [place] 00 (two) Medical times Branch daily. ondansetron Yes [id number] 4mg Take 1 [facility] 4 mg tablet 8-05 tablet by [facility] of 00:00: mouth [place] 00 every 8 Medical (eight) Branch hours as needed for Nausea and Vomiting (N/V). proMETHazin 2018- Yes [id number] 25mg Take 1 [facility] 25 mg 8-05 tablet by [facility] tablet 00:00: mouth [place] 00 every 6 Medical (six) Branch hours as needed for N/V alternatin g with Ondansetro n. HYDROcodone Yes [id number] 1{tbl} Take 1 [facility] -acetaminop 8-05 tablet by [facility] hen 7.5-325 00:00: mouth [place] mg per 00 every 6 Medical tablet (six) Branch hours as needed (Pain scal 7-10). pantoprazol 2019-0 Yes [id number] 40mg Take 1 [facility] 40 mg EC 8-05 tablet by [facility] tablet 00:00: mouth 2 [place] 00 (two) Medical times Branch daily. ondansetron 2018-0 Yes [id number] 4mg Take 1 [facility] 4 mg tablet 8-05 tablet by [facility] of 00:00: mouth [place] 00 every 8 Medical (eight) Branch hours as needed for Nausea and Vomiting (N/V). proMETHazin 2018- Yes [id number] 25mg Take 1 [facility] 25 mg 8-05 tablet by [facility] tablet 00:00: mouth [place] 00 every 6 Medical (six) Branch hours as needed for N/V alternatin g with Ondansetro n. HYDROcodone Yes [id number] 1{tbl} Take 1 [facility] -acetaminop 8-05 tablet by [facility] hen 7.5-325 00:00: mouth [place] mg per 00 every 6 Medical tablet (six) Branch hours as needed (Pain scal 7-10). pantoprazol 2018-0 Yes [id number] 40mg Take 1 [facility] 40 mg EC 8-05 tablet by [facility] tablet 00:00: mouth 2 [place] 00 (two) Medical times Branch daily. ondansetron 2018-0 Yes [id number] 4mg Take 1 [facility] 4 mg tablet 8-05 tablet by [facility] of 00:00: mouth [place] 00 every 8 Medical (eight) Branch hours as needed for Nausea and Vomiting (N/V). proMETHazin 2019-0 Yes [id number] 25mg Take 1 [facility] 25 mg 8-05 tablet by [facility] tablet 00:00: mouth [place] 00 every 6 Medical (six) Branch hours as needed for N/V alternatin g with Ondansetro n. HYDROcodone 2018-0 Yes [id number] 1{tbl} Take 1 [facility] -acetaminop 8-05 tablet by [facility] hen 7.5-325 00:00: mouth [place] mg per 00 every 6 Medical tablet (six) Branch hours as needed (Pain scal 7-10). pantoprazol 2018-0 Yes [id number] 40mg Take 1 [facility] 40 mg EC 8-05 tablet by [facility] tablet 00:00: mouth 2 [place] 00 (two) Medical times Branch daily. ondansetron 2018-0 Yes [id number] 4mg Take 1 [facility] 4 mg tablet 8-05 tablet by [facility] of 00:00: mouth [place] 00 every 8 Medical (eight) Branch hours as needed for Nausea and Vomiting (N/V). proMETHazin 2018-0 Yes [id number] 25mg Take 1 [facility] 25 mg 8-05 tablet by [facility] tablet 00:00: mouth [place] 00 every 6 Medical (six) Branch hours as needed for N/V alternatin g with Ondansetro n. HYDROcodone 2018- Yes [id number] 1{tbl} Take 1 [facility] -acetaminop 8-05 tablet by [facility] hen 7.5-325 00:00: mouth [place] mg per 00 every 6 Medical tablet (six) Branch hours as needed (Pain scal 7-10). pantoprazol Yes [id number] 40mg Take 1 [facility] 40 mg EC 8-05 tablet by [facility] tablet 00:00: mouth 2 [place] 00 (two) Medical times Branch daily. ondansetron Yes [id number] 4mg Take 1 [facility] 4 mg tablet 8-05 tablet by [facility] of 00:00: mouth [place] 00 every 8 Medical (eight) Branch hours as needed for Nausea and Vomiting (N/V). proMETHazin 2018- Yes [id number] 25mg Take 1 [facility] 25 mg 8-05 tablet by [facility] tablet 00:00: mouth [place] 00 every 6 Medical (six) Branch hours as needed for N/V alternatin g with Ondansetro n. HYDROcodone 2018- Yes [id number] 1{tbl} Take 1 [facility] -acetaminop 8-05 tablet by [facility] hen 7.5-325 00:00: mouth [place] mg per 00 every 6 Medical tablet (six) Branch hours as needed (Pain scal 7-10). pantoprazol 2018-0 Yes [id number] 40mg Take 1 [facility] 40 mg EC 8-05 tablet by [facility] tablet 00:00: mouth 2 [place] 00 (two) Medical times Branch daily. ondansetron 2018-0 Yes [id number] 4mg Take 1 [facility] 4 mg tablet 8-05 tablet by [facility] of 00:00: mouth [place] 00 every 8 Medical (eight) Branch hours as needed for Nausea and Vomiting (N/V). proMETHazin 2019-0 Yes [id number] 25mg Take 1 [facility] 25 mg 8-05 tablet by [facility] tablet 00:00: mouth [place] 00 every 6 Medical (six) Branch hours as needed for N/V alternatin g with Ondansetro n. HYDROcodone 2019-0 Yes [id number] 1{tbl} Take 1 [facility] -acetaminop 8-05 tablet by [facility] hen 7.5-325 00:00: mouth [place] mg per 00 every 6 Medical tablet (six) Branch hours as needed (Pain scal 7-10). pantoprazol 2019-0 Yes [id number] 40mg Take 1 [facility] 40 mg EC 8-05 tablet by [facility] tablet 00:00: mouth 2 [place] 00 (two) Medical times Branch daily. ondansetron 2018-0 Yes [id number] 4mg Take 1 [facility] 4 mg tablet 8-05 tablet by [facility] of 00:00: mouth [place] 00 every 8 Medical (eight) Branch hours as needed for Nausea and Vomiting (N/V). proMETHazin 2019-0 Yes [id number] 25mg Take 1 [facility] 25 mg 8-05 tablet by [facility] tablet 00:00: mouth [place] 00 every 6 Medical (six) Branch hours as needed for N/V alternatin g with Ondansetro n. HYDROcodone 2019-0 Yes [id number] 1{tbl} Take 1 [facility] -acetaminop 8-05 tablet by [facility] hen 7.5-325 00:00: mouth [place] mg per 00 every 6 Medical tablet (six) Branch hours as needed (Pain scal 7-10). pantoprazol 2019-0 Yes [id number] 40mg Take 1 [facility] 40 mg EC 8-05 tablet by [facility] tablet 00:00: mouth 2 [place] 00 (two) Medical times Branch daily. ondansetron 2019-0 Yes [id number] 4mg Take 1 [facility] 4 mg tablet 8-05 tablet by [facility] of 00:00: mouth [place] 00 every 8 Medical (eight) Branch hours as needed for Nausea and Vomiting (N/V). proMETHazin 2019-0 Yes [id number] 25mg Take 1 [facility] 25 mg 8-05 tablet by [facility] tablet 00:00: mouth [place] 00 every 6 Medical (six) Branch hours as needed for N/V alternatin g with Ondansetro n. HYDROcodone Yes [id number] 1{tbl} Take 1 [facility] -acetaminop 8-05 tablet by [facility] hen 7.5-325 00:00: mouth [place] mg per 00 every 6 Medical tablet (six) Branch hours as needed (Pain scal 7-10). pantoprazol Yes [id number] 40mg Take 1 [facility] 40 mg EC 8-05 tablet by [facility] tablet 00:00: mouth 2 [place] 00 (two) Medical times Branch daily. ondansetron Yes [id number] 4mg Take 1 [facility] 4 mg tablet 8-05 tablet by [facility] of 00:00: mouth [place] 00 every 8 Medical (eight) Branch hours as needed for Nausea and Vomiting (N/V). proMETHazin Yes [id number] 25mg Take 1 [facility] 25 mg 8-05 tablet by [facility] tablet 00:00: mouth [place] 00 every 6 Medical (six) Branch hours as needed for N/V alternatin g with Ondansetro n. HYDROcodone Yes [id number] 1{tbl} Take 1 [facility] -acetaminop 8-05 tablet by [facility] hen 7.5-325 00:00: mouth [place] mg per 00 every 6 Medical tablet (six) Branch hours as needed (Pain scal 7-10). pantoprazol Yes [id number] 40mg Take 1 [facility] 40 mg EC 8-05 tablet by [facility] tablet 00:00: mouth 2 [place] 00 (two) Medical times Branch daily. ondansetron Yes [id number] 4mg Take 1 [facility] 4 mg tablet 8-05 tablet by [facility] of 00:00: mouth [place] 00 every 8 Medical (eight) Branch hours as needed for Nausea and Vomiting (N/V). proMETHazin Yes [id number] 25mg Take 1 [facility] 25 mg 8-05 tablet by [facility] tablet 00:00: mouth [place] 00 every 6 Medical (six) Branch hours as needed for N/V alternatin g with Ondansetro n. HYDROcodone Yes [id number] 1{tbl} Take 1 [facility] -acetaminop 8-05 tablet by [facility] hen 7.5-325 00:00: mouth [place] mg per 00 every 6 Medical tablet (six) Branch hours as needed (Pain scal 7-10). pantoprazol Yes [id number] 40mg Take 1 [facility] 40 mg EC 8-05 tablet by [facility] tablet 00:00: mouth 2 [place] 00 (two) Medical times Branch daily. ondansetron Yes [id number] 4mg Take 1 [facility] 4 mg tablet 8-05 tablet by [facility] of 00:00: mouth [place] 00 every 8 Medical (eight) Branch hours as needed for Nausea and Vomiting (N/V). proMETHazin Yes [id number] 25mg Take 1 [facility] 25 mg 8-05 tablet by [facility] tablet 00:00: mouth [place] 00 every 6 Medical (six) Branch hours as needed for N/V alternatin g with Ondansetro n. HYDROcodone Yes [id number] 1{tbl} Take 1 [facility] -acetaminop 8-05 tablet by [facility] hen 7.5-325 00:00: mouth [place] mg per 00 every 6 Medical tablet (six) Branch hours as needed (Pain scal 7-10). pantoprazol Yes [id number] 40mg Take 1 [facility] 40 mg EC 8-05 tablet by [facility] tablet 00:00: mouth 2 [place] 00 (two) Medical times Branch daily. ondansetron Yes [id number] 4mg Take 1 [facility] 4 mg tablet 8-05 tablet by [facility] of 00:00: mouth [place] 00 every 8 Medical (eight) Branch hours as needed for Nausea and Vomiting (N/V). proMETHazin 2018- Yes [id number] 25mg Take 1 [facility] 25 mg 8-05 tablet by [facility] tablet 00:00: mouth [place] 00 every 6 Medical (six) Branch hours as needed for N/V alternatin g with Ondansetro n. HYDROcodone Yes [id number] 1{tbl} Take 1 [facility] -acetaminop 8-05 tablet by [facility] hen 7.5-325 00:00: mouth [place] mg per 00 every 6 Medical tablet (six) Branch hours as needed (Pain scal 7-10). pantoprazol 2019-0 Yes [id number] 40mg Take 1 [facility] 40 mg EC 8-05 tablet by [facility] tablet 00:00: mouth 2 [place] 00 (two) Medical times Branch daily. ondansetron 2019-0 Yes [id number] 4mg Take 1 [facility] 4 mg tablet 8-05 tablet by [facility] of 00:00: mouth [place] 00 every 8 Medical (eight) Branch hours as needed for Nausea and Vomiting (N/V). proMETHazin 2019-0 Yes [id number] 25mg Take 1 [facility] 25 mg 8-05 tablet by [facility] tablet 00:00: mouth [place] 00 every 6 Medical (six) Branch hours as needed for N/V alternatin g with Ondansetro n. HYDROcodone 2018- Yes [id number] 1{tbl} Take 1 [facility] -acetaminop 8-05 tablet by [facility] hen 7.5-325 00:00: mouth [place] mg per 00 every 6 Medical tablet (six) Branch hours as needed (Pain scal 7-10). pantoprazol 2018- Yes [id number] 40mg Take 1 [facility] 40 mg EC 8-05 tablet by [facility] tablet 00:00: mouth 2 00 (two) Medical times Branch daily. ondansetron 2018-0 Yes [id number] 4mg Take 1 [facility] 4 mg tablet 8-05 tablet by [facility] of 00:00: mouth [place] 00 every 8 Medical (eight) Branch hours as needed for Nausea and Vomiting (N/V). proMETHazin 2019-0 Yes [id number] 25mg Take 1 [facility] 25 mg 8-05 tablet by [facility] tablet 00:00: mouth [place] 00 every 6 Medical (six) Branch hours as needed for N/V alternatin g with Ondansetro n. HYDROcodone 2019-0 Yes [id number] 1{tbl} Take 1 [facility] -acetaminop 8-05 tablet by [facility] hen 7.5-325 00:00: mouth [place] mg per 00 every 6 Medical tablet (six) Branch hours as needed (Pain scal 7-10). pantoprazol 2019-0 Yes [id number] 40mg Take 1 [facility] 40 mg EC 8-05 tablet by [facility] tablet 00:00: mouth 2 [place] 00 (two) Medical times Branch daily. proMETHazin Yes [id number] 25mg Take 1 [facility] 25 mg 8-05 tablet by [facility] tablet 00:00: mouth [place] 00 every 6 Medical (six) Branch hours as needed for N/V alternatin g with Ondansetro n. HYDROcodone Yes [id number] 1{tbl} Take 1 [facility] -acetaminop 8-05 tablet by [facility] hen 7.5-325 00:00: mouth [place] mg per 00 every 6 Medical tablet (six) Branch hours as needed (Pain scal 7-10). pantoprazol Yes [id number] 40mg Take 1 [facility] 40 mg EC 8-05 tablet by [facility] tablet 00:00: mouth 2 [place] (two) Medical times Branch daily. proMETHazin Yes [id number] 25mg Take 1 [facility] 25 mg 8-05 tablet by [facility] tablet 00:00: mouth [place] 00 every 6 Medical (six) Branch hours as needed for N/V alternatin g with Ondansetro n. HYDROcodone Yes [id number] 1{tbl} Take 1 [facility] -acetaminop 8-05 tablet by [facility] hen 7.5-325 00:00: mouth [place] mg per 00 every 6 Medical tablet (six) Branch hours as needed (Pain scal 7-10). pantoprazol Yes [id number] 40mg Take 1 [facility] 40 mg EC 8-05 tablet by [facility] tablet 00:00: mouth 2 00 (two) Medical times Branch daily. proMETHazin Yes [id number] 25mg Take 1 [facility] 25 mg 8-05 tablet by [facility] tablet 00:00: mouth [place] 00 every 6 Medical (six) Branch hours as needed for N/V alternatin g with Ondansetro n. HYDROcodone Yes [id number] 1{tbl} Take 1 [facility] -acetaminop 8-05 tablet by [facility] hen 7.5-325 00:00: mouth [place] mg per 00 every 6 Medical tablet (six) Branch hours as needed (Pain scal 7-10). pantoprazol Yes [id number] 40mg Take 1 [facility] 40 mg EC 8-05 tablet by [facility] tablet 00:00: mouth 2 [place] 00 (two) Medical times Branch daily. proMETHazin Yes [id number] 25mg Take 1 [facility] 25 mg 8-05 tablet by [facility] tablet 00:00: mouth [place] 00 every 6 Medical (six) Branch hours as needed for N/V alternatin g with Ondansetro n. HYDROcodone Yes [id number] 1{tbl} Take 1 [facility] -acetaminop 8-05 tablet by [facility] hen 7.5-325 00:00: mouth [place] mg per 00 every 6 Medical tablet (six) Branch hours as needed (Pain scal 7-10). pantoprazol Yes [id number] 40mg Take 1 [facility] 40 mg EC 8-05 tablet by [facility] tablet 00:00: mouth 2 [place] 00 (two) Medical times Branch daily. proMETHazin Yes [id number] 25mg Take 1 [facility] e 25 mg 8-05 tablet by ity of tablet 00:00: mouth [place] 00 every 6 Medical (six) Branch hours as needed for N/V alternatin g with Ondansetro n. HYDROcodone Yes [id number] 1{tbl} Take 1 Univers -acetaminop 8-05 tablet by ity of hen 7.5-325 00:00: mouth [place] mg per 00 every 6 Medical tablet (six) Branch hours as needed (Pain scal 7-10). pantoprazol 2020- No [id number] 40mg Take 1 [facility] e 40 mg EC 8-05 04-05 tablet by ity of tablet 00:00: 00:00 mouth 2 [place] 00 :00 (two) Medical times Branch daily. proMETHazin 2020- No [id number] 25mg Take 1 [facility] e 25 mg 8-05 04-05 tablet by ity of tablet 00:00: 00:00 mouth [place] 00 :00 every 6 Medical (six) Branch hours as needed for N/V alternatin g with Ondansetro n. pantoprazol 2020- No [id number] 40mg Take 1 [facility] e 40 mg EC 8-05 04-05 tablet by ity of tablet 00:00: 00:00 mouth 2 [place] 00 :00 (two) Medical times Branch daily. proMETHazin 2020- No [id number] 25mg Take 1 [facility] e 25 mg 11-17 04-05 tablet by ity of tablet 00:00: 00:00 mouth [place] 00 :00 every 6 Medical (six) Branch hours as needed for N/V alternatin g with Ondansetro n. HYDROcodone 2018- Yes 1{tbl} 1 tablet, Univers -acetaminop 8 Oral, ity of hen (NORCO) 19:23: Q6HPRN, [place] 10-325 mg 44 Starting Medica l tablet 1 [place] 11/16/18 Branc h tablet at 1423, Until Discontinu ed, Routine, Pain (scale 4-6), Pain (scale 7-10) citalopram 2019-0 Yes 10mg 10 mg, Unive rs (CELEXA) 8- Oral, ity of tablet 10 14:00: DAILY, [place] mg 00 First dose Medical on [facility] 11/16/18 at 0900, Until Discontinu ed, Routine losartan 2018-0 Yes 100mg 100 mg, Unive rs (COZAAR) 8 Oral, ity of tablet 100 14:00: DAILY, [place] mg 00 First dose Medical on [facility] 11/16/18 at 0900, Until Discontinu ed lipase-prot 2018-0 Yes 3{capsu 3 capsule, Univers ease-amylas 11-16 le} Oral, TID ity of e (CREON) 13:00: MEALS, [place] 12,000-38,0 00 First dose Me dical 00 -60,000 on [facility] unit 11/16/18 at capsule 3 0800, capsule Until Discontinu ed FENTanyl PF 2018- 2019- No 25ug 25 mcg, Un you (SUBLIMAZE 11-16- Slow IV ity o f (PF)) 12:38: 19:23 Push, [place] injection 00 :28 Q6HPRN, Medical 25 mcg Starting Branch [place] 11/16/18 at 0738, Until [place] 11/16/18 at 1423, Routine, Pain (scale 7-10) baclofen 2019-0 Yes 10mg 10 mg, Univers (LIORESAL) 8-04 Oral, TID, ity of tablet 10 05:45: [place] 00 on [facility] 11/16/18 at Branch 0045, Until Discontinu ed, Routine QUEtiapine 2018- Yes 100mg 100 mg, Uni vers (SEROQUEL) 8-04 Oral, QHS, ity of tablet 100 02:00: [place] dose [place] mg 00 on [facility] Medical 11/15/18 at Branch 2100, Until Discontinu ed, Routine divalproex Yes 125mg 125 mg, Uni vers (DEPAKOTE) 8-04 Oral, QHS, ity of EC tablet 02:00: [place] 125 mg 00 on [facility] Medical 11/15/18 at Branch 2100, Until Discontinu ed, Routine proMETHazin 2019- No 25mg 25 mg, Uni vers e 8- 08-04 Oral, ity of (PHENERGAN) 01:15: 00:46 ONCE, 1 [place] tablet 25 00 :00 dose, Sat Medic al mg 11/15/18 at Branch 2015, Routine gabapentin 2018- Yes 300mg 300 mg, Uni vers (NEURONTIN) 8-04 Oral, BID, it y of capsule 300 01:00: First dose [place] mg 00 on [facility] Medical 11/15/18 at Branch 2000, Until Discontinu ed, Routine lactated 2019- No 1000mL at 150 Univ ers ringers IV 11-15 mL/hr, ity of infusion 23:45: 11:44 1,000 mL, [place] 1,000 mL 00 :00 IV Medical Infusion, Branch CONTINUOUS , Starting 11/15/18 at 1845, Until 11/16/18 at 0644, Routine HYDROcodone 2019- No 1{tbl} Take 1 Tab Univers -acetaminop 11-15 by mouth ity of hen (NORCO) 22:50: 00:00 every 6 [place] 10-325 mg 54 :00 (six) Medical tablet hours as Branch needed. ALPRAZOLAM 2019- No Take by Un you ORAL 11-15- mouth. ity of 22:50: 00:00 [place] 54 :00 Medical Branch divalproex 2019- No Take by Un you sodium 11-15- mouth. ity of (DEPAKOTE 22:50: 00:00 [place] ORAL) 54 :00 Medical Branch HYDROcodone 2019- No 1{tbl} 1 tablet, Univers -acetaminop 8-03 0804 Oral, ity of hen (NORCO 22:46: 19:24 Q6HPRN, [place] 5) 5-325 mg 08 :02 Starting Medi brandy tablet 1 11/15/18 Branc h tablet at 1746, Until 11/16/18 at 1424, Routine, Pain (scale 4-6), Pain (scale 7-10) FENTanyl PF 2019-0 2019- No 12.5ug 12.5 mcg, Univers (SUBLIMAZE 11-15 Slow IV ity o f (PF)) 22:44: 12:38 Push, [place] injection 08 :16 Q6HPRN, Medical 12.5 mcg Starting Branch 11/15/18 at 1744, Until 11/16/18 at 0738, Routine, Pain (scale 7-10) ondansetron 2018-0 Yes 4mg 4 mg, Slow Univers (ZOFRAN 11-15 IV Push, ity of (PF)) 22:43: Q6HPRN, [place] injection 4 29 Starting Medi brandy mg 11/15/18 Branch at 1743, Until Discontinu ed, Routine, Nausea and Vomiting (N/V) acetaminoph 2018-0 Yes 650mg 650 mg, Un you en 11-15 Oral, ity of (TYLENOL) 22:41: Q6HPRN, [place] tablet 650 56 Starting Medic al mg 11/15/18 Branch at 1741, Until Discontinu ed, Routine, Pain (scale 1-3) FENTanyl PF 2018-0 2019- No 100ug 100 mcg, Univers (SUBLIMAZE 11-15 Slow IV ity o f (PF)) 20:30: 19:34 Push, [place] injection 00 :00 ONCE, 1 Medical 100 mcg dose, Sat Branch 11/15/18 at 1530, Routine FENTanyl PF 2018-0 2019- No 75ug 75 mcg, Un you (SUBLIMAZE 11-15 Slow IV ity o f (PF)) 18:30: 17:34 Push, [place] injection 00 :00 ONCE, 1 Medical 75 mcg dose, Sat Branch 11/15/18 at 1330, STAT pantoprazol 2018-0 2019- No 8mg/h 8 mg/hr U nivers e 8-03 08-03 (50 ity of (PROTONIX) 18:30: 22:51 mL/hr), IV [place] 80 mg in 00 :49 Piggyback, Medic al NaCl 0.9% CONTINUOUS Bran ch (NS) 500 mL , Starting infusion 11/15/18 at 1330, Until 11/15/18 at 1751, 500 mL pantoprazol 2018- No 80mg 80 mg, IV Univers e 11-15 Push, ity of (PROTONIX) 18:30: 17:37 ONCE, 1 [place] 80 mg in 00 :00 dose, Sat Medica l NaCl 0.9% 11/15/18 at [facility] h (NS) 20 mL 1330, 20 syringe mL iohexol 2018- No 120mL 120 mL, Unive rs (OMNIPAQUE 11-15 Intravenou it y of 350 16:45: 16:25 s, ONCE, 1 [place] BULK-150 00 :00 dose, Sat Medica l mL) 11/15/18 at Branch injection 1145, 120 mL Routine FENTanyl PF 2018- No 100ug 100 mcg, Univers (SUBLIMAZE 11-15 Slow IV ity o f (PF)) 16:45: 15:35 Push, [place] injection 00 :00 ONCE, 1 Medical 100 mcg dose, Sat Branch 11/15/18 at 1145, STAT ipratropium 2018- No 3mL 3 mL, Univ ers -albuterol 11-15 Inhalation it y of (DUONEB) 16:30: 15:34 , ONCE, 1 [place] 0.5 mg-3 00 :00 dose, Sat Medica l mg(2.5 mg 11/15/18 at [facility] h base)/3 mL 1130, [place] nebulizer solution 3 mL FENTanyl PF 2018- No 50ug 50 mcg, Un you (SUBLIMAZE 11-15 Slow IV ity o f (PF)) 15:45: 14:55 Push, [place] injection 00 :00 ONCE, 1 Medical 50 mcg dose, Sat Branch 11/15/18 at 1045, Routine ondansetron 2018- No 4mg 4 mg, Slow Univers (ZOFRAN 11-15 IV Push, ity of (PF)) 15:45: 14:55 ONCE, 1 [place] injection 4 00 :00 dose, Sat Med ical mg 11/15/18 at Branch 1045, [place] traMADol 2019-0 2019- No [id number] 50mg Take 1 Univers (ULTRAM) 50 10-31 0803 9103 tablet by it y of mg tablet 00:00: 00:00 mouth [place] 00 :00 every 8 Medical (eight) Branch hours as needed for Pain (scale 4-6). CREON 2019-0 Yes Take by Univers 36,000-114, 7-11 mouth 3 ity o f 000- 00:00: (three) [place] 180,000 00 times Medical unit CpDR daily with Bran ch meals. CREON 2019-0 Yes Take by Univers 36,000-114, 7-11 mouth 3 ity o f 000- 00:00: (three) [place] 180,000 00 times Medical unit CpDR daily with Bran ch meals. CREON 2019-0 Yes Take by Univers 36,000-114, 7-11 mouth 3 ity o f 000- 00:00: (three) [place] 180,000 00 times Medical unit CpDR daily with Bran ch meals. CREON 2019-0 Yes Take by Univers 36,000-114, 7-11 mouth 3 ity o f 000- 00:00: (three) [place] 180,000 00 times Medical unit CpDR daily with Bran ch meals. CREON 2019-0 Yes Take by Univers 36,000-114, 7-11 mouth 3 ity o f 000- 00:00: (three) [place] 180,000 00 times Medical unit CpDR daily with Bran ch meals. CREON 2019-0 Yes Take by Univers 36,000-114, 7-11 mouth 3 ity o f 000- 00:00: (three) [place] 180,000 00 times Medical unit CpDR daily with Bran ch meals. CREON 2019-0 Yes Take by Univers 36,000-114, 7-11 mouth 3 ity o f 000- 00:00: (three) [place] 180,000 00 times Medical unit CpDR daily with Bran ch meals. CREON 2019-0 Yes Take by Univers 36,000-114, 7-11 mouth 3 ity o f 000- 00:00: (three) [place] 180,000 00 times Medical unit CpDR daily with Bran ch meals. CREON 2019-0 Yes Take by Univers 36,000-114, 7-11 mouth 3 ity o f 000- 00:00: (three) [place] 180,000 00 times Medical unit CpDR daily with Bran ch meals. CREON 2018-0 Yes Take by Univers 36,000-114, 7-11 mouth 3 ity o f 000- 00:00: (three) [place] 180,000 00 times Medical unit CpDR daily with Bran ch meals. CREON 2018-0 Yes Take by Univers 36,000-114, 7-11 mouth 3 ity o f 000- 00:00: (three) [place] 180,000 00 times Medical unit CpDR daily with Bran ch meals. CREON 2018-0 Yes Take by Univers 36,000-114, 7-11 mouth 3 ity o f 000- 00:00: (three) [place] 180,000 00 times Medical unit CpDR daily with Bran ch meals. CREON 2018-0 Yes Take by Univers 36,000-114, 7-11 mouth 3 ity o f 000- 00:00: (three) [place] 180,000 00 times Medical unit CpDR daily with Bran ch meals. CREON 2018-0 Yes Take by Univers 36,000-114, 7-11 mouth 3 ity o f 000- 00:00: (three) [place] 180,000 00 times Medical unit CpDR daily with Bran ch meals. CREON 2018-0 Yes Take by Univers 36,000-114, 7-11 mouth 3 ity o f 000- 00:00: (three) [place] 180,000 00 times Medical unit CpDR daily with Bran ch meals. CREON 2018-0 Yes Take by Univers 36,000-114, 7-11 mouth 3 ity o f 000- 00:00: (three) [place] 180,000 00 times Medical unit CpDR daily with Bran ch meals. CREON 2018-0 Yes Take by Univers 36,000-114, 7-11 mouth 3 ity o f 000- 00:00: (three) [place] 180,000 00 times Medical unit CpDR daily with Bran ch meals. CREON 2019-0 Yes Take by Univers 36,000-114, 7-11 mouth 3 ity o f 000- 00:00: (three) [place] 180,000 00 times Medical unit CpDR daily with Bran ch meals. CREON 2018-0 Yes Take by Univers 36,000-114, 7-11 mouth 3 ity o f 000- 00:00: (three) [place] 180,000 00 times Medical unit CpDR daily with Bran ch meals. CREON 2018-0 Yes Take by Univers 36,000-114, 7-11 mouth 3 ity o f 000- 00:00: (three) [place] 180,000 00 times Medical unit CpDR daily with Bran ch meals. CREON 2018-0 Yes Take by Univers 36,000-114, 7-11 mouth 3 ity o f 000- 00:00: (three) [place] 180,000 00 times Medical unit CpDR daily with Bran ch meals. CREON 2018-0 Yes Take by Univers 36,000-114, 7-11 mouth 3 ity o f 000- 00:00: (three) [place] 180,000 00 times Medical unit CpDR daily with Bran ch meals. CREON 2018-0 Yes Take by Univers 36,000-114, 7-11 mouth 3 ity o f 000- 00:00: (three) [place] 180,000 00 times Medical unit CpDR daily with Bran ch meals. CREON 2018-0 Yes Take by Univers 36,000-114, 7-11 mouth 3 ity o f 000- 00:00: (three) [place] 180,000 00 times Medical unit CpDR daily with Bran ch meals. CREON 2018-0 Yes Take by Univers 36,000-114, 7-11 mouth 3 ity o f 000- 00:00: (three) [place] 180,000 00 times Medical unit CpDR daily with Bran ch meals. CREON 2018-0 Yes Take by Univers 36,000-114, 7-11 mouth 3 ity o f 000- 00:00: (three) [place] 180,000 00 times Medical unit CpDR daily with Bran ch meals. CREON 2018-0 Yes Take by Univers 36,000-114, 7-11 mouth 3 ity o f 000- 00:00: (three) [place] 180,000 00 times Medical unit CpDR daily with Bran ch meals. CREON 2018-0 Yes Take by Univers 36,000-114, 7-11 mouth 3 ity o f 000- 00:00: (three) [place] 180,000 00 times Medical unit CpDR daily with Bran ch meals. CREON 2018-0 Yes Take by Univers 36,000-114, 7-11 mouth 3 ity o f 000- 00:00: (three) [place] 180,000 00 times Medical unit CpDR daily with Bran ch meals. CREON 2019-0 Yes Take by Univers 36,000-114, 7-11 mouth 3 ity o f 000- 00:00: (three) [place] 180,000 00 times Medical unit CpDR daily with Bran ch meals. CREON 2019-0 Yes Take by Univers 36,000-114, 7-11 mouth 3 ity o f 000- 00:00: (three) [place] 180,000 00 times Medical unit CpDR daily with Bran ch meals. CREON 2019-0 Yes Take by Univers 36,000-114, 7-11 mouth 3 ity o f 000- 00:00: (three) [place] 180,000 00 times Medical unit CpDR daily with Bran ch meals. CREON 2018-0 Yes Take by Univers 36,000-114, 7-11 mouth 3 ity o f 000- 00:00: (three) [place] 180,000 00 times Medical unit CpDR daily with Bran ch meals. CREON 2018-0 Yes Take by Univers 36,000-114, 7-11 mouth 3 ity o f 000- 00:00: (three) [place] 180,000 00 times Medical unit CpDR daily with Bran ch meals. CREON 2018-0 Yes Take by Univers 36,000-114, 7-11 mouth 3 ity o f 000- 00:00: (three) [place] 180,000 00 times Medical unit CpDR daily with Bran ch meals. CREON 2018-0 Yes Take by Univers 36,000-114, 7-11 mouth 3 ity o f 000- 00:00: (three) [place] 180,000 00 times Medical unit CpDR daily with Bran ch meals. CREON 2019-0 Yes Take by Univers 36,000-114, 7-11 mouth 3 ity o f 000- 00:00: (three) [place] 180,000 00 times Medical unit CpDR daily with Bran ch meals. CREON 2019-0 Yes Take by Univers 36,000-114, 7-11 mouth 3 ity o f 000- 00:00: (three) [place] 180,000 00 times Medical unit CpDR daily with Bran ch meals. CREON 2019-0 Yes Take by Univers 36,000-114, 7-11 mouth 3 ity o f 000- 00:00: (three) [place] 180,000 00 times Medical unit CpDR daily with Bran ch meals. CREON 2020- No Take by Univers 36,000-114, 7-11 04-05 mouth 3 ity of 000- 00:00: 00:00 (three) [place] 180,000 00 :00 times Medical unit CpDR daily with Bran ch meals. CREON 2020- No Take by Univers 36,000-114, 7-11 04-05 mouth 3 ity of 000- 00:00: 00:00 (three) [place] 180,000 00 :00 times Medical unit CpDR daily with Bran ch meals. dicyclomine 2018- No [id number] 20mg Take 1 Univers (BENTYL) 20 - 08-03 tablet by it y of mg tablet 00:00: 00:00 mouth 4 [place] :[place] (four) Medical times Branch daily as needed for Abdominal pain. ondansetron 2018- No [id number] 4mg Take 1 Univers (ZOFRAN) 4 09-09 08-03 tablet by ity of mg tablet 00:00: 00:00 mouth [place] 00 :00 every 8 Medical (eight) Branch hours as needed for Nausea and Vomiting (N/V). amLODIPine 2019- No [id number] 5mg Take 2 Univers 2.5 mg 4-03 tablets by ity of tablet 00:00: 00:00 mouth at [place] 00 :00 bedtime. Medical Branch proMETHazin 2019- No [id number] 25mg Take 1 Univers e 25 mg 07-21-03 tablet by ity of tablet 00:00: 00:00 mouth [place] 00 :00 every 6 Medical (six) Branch hours as needed for Nausea and Vomiting (N/V). famotidine 2017-04- No 20mg Take 1 Univ ers (PEPCID) 20 2 08-03 tablet by it y of mg tablet 00:00: 00:00 mouth 2 [place] 00 :[place] (two) Medical times Branch daily. furosemide 2015-04- No 20mg Take 1 Univ ers (LASIX) 20 05-01-03 tablet by ity of mg tablet 00:00: 00:00 mouth [place] 00 :00 every Medical morning. Branch KCL 2015-04- No 20meq Take 1 Univers (KLOR-CON 05-01 tablet by ity of M20) 20 mEq 00:00: 00:00 mouth [place] tablet 00 :00 daily. Medical Branch dicyclomine 2018- No 20mg Take 1 Uni vers (BENTYL) 20 08-15 tablet by it y of mg tablet 00:00: 00:00 mouth 4 [place] 00 :[place] (four) Medical times Branch daily. ondansetron 2014-04- No 4mg Take 1 Tab Univers (ZOFRAN, 05-02 by mouth ity of HYDROCHLORI 00:00: 00:00 every 8 [place],) 4 mg 00 :00 (eight) Medical tablet hours. Branch Diazepam Diazepam Yes [place] 1 tablet [...] [facility] Losartan Losartan Yes [...] - nostril [facility] Immunizations Ordered Filled Immunization Date Status Comments [facility] e Immunization Name Name SARS-COV-2 COVID-19 2020-07-19 Completed Unive rsity of MODERNA VACCINE 00:00:00 [place] Med ical Branch SARS-COV-2 COVID-19 2020-07-19 Completed Unive rsity of MODERNA VACCINE 00:00:00 [place] Med ical Branch SARS-COV-2 COVID-19 2020-07-19 Completed Unive rsity of MODERNA VACCINE 00:00:00 [place] Med ical Branch SARS-COV-2 COVID-19 2020-07-19 Completed Unive rsity of MODERNA VACCINE 00:00:00 [place] Med ical Branch SARS-COV-2 COVID-19 2020-07-19 Completed Unive rsity of MODERNA VACCINE 00:00:00 [place] Med ical Branch SARS-COV-2 COVID-19 2020-07-19 Completed Unive rsity of MODERNA VACCINE 00:00:00 [place] Med ical Branch SARS-COV-2 COVID-19 2020-07-19 Completed Unive rsity of MODERNA VACCINE 00:00:00 [place] Med ical Branch SARS-COV-2 COVID-19 2020-07-19 Completed Unive rsity of MODERNA VACCINE 00:00:00 [place] Med ical Branch SARS-COV-2 COVID-19 2020-07-19 Completed Unive rsity of MODERNA VACCINE 00:00:00 [place] Med ical Branch SARS-COV-2 COVID-19 2020-07-19 Completed Unive rsity of MODERNA VACCINE 00:00:00 [place] [facility] ical Branch SARS-COV-2 COVID-19 2020-07-19 Completed Unive rsity of MODERNA VACCINE 00:00:00 [place] Med ical Branch SARS-COV-2 COVID-19 2020-07-19 Completed Unive rsity of MODERNA VACCINE 00:00:00 [place] Med ical Branch SARS-COV-2 COVID-19 2020-07-19 Completed Unive rsity of MODERNA VACCINE 00:00:00 [place] Med ical Branch SARS-COV-2 COVID-19 2020-07-19 Completed Unive rsity of MODERNA VACCINE 00:00:00 [place] Med ical Branch SARS-COV-2 COVID-19 2020-07-19 Completed Unive rsity of MODERNA VACCINE 00:00:00 [place] Med ical Branch SARS-COV-2 COVID-19 2020-07-19 Completed Unive rsity of MODERNA VACCINE 00:00:00 [place] Med ical Branch SARS-COV-2 COVID-19 2020-07-19 Completed Unive rsity of MODERNA VACCINE 00:00:00 [place] Med ical Branch SARS-COV-2 COVID-19 2020-07-19 Completed Unive rsity of MODERNA VACCINE 00:00:00 [place] Med ical Branch SARS-COV-2 COVID-19 2020-05-22 Completed Unive rsity of MODERNA VACCINE 00:00:00 [place] Med ical Branch SARS-COV-2 COVID-19 2020-05-22 Completed Unive rsity of MODERNA VACCINE 00:00:00 [place] Med ical Branch SARS-COV-2 COVID-19 2020-05-22 Completed Unive rsity of MODERNA VACCINE 00:00:00 [place] Med ical Branch SARS-COV-2 COVID-19 2020-05-22 Completed Unive rsity of MODERNA VACCINE 00:00:00 [place] Med ical Branch SARS-COV-2 COVID-19 2020-05-22 Completed Unive rsity of MODERNA VACCINE 00:00:00 [place] Med ical Branch SARS-COV-2 COVID-19 2020-05-22 Completed Unive rsity of MODERNA VACCINE 00:00:00 [place] Med ical Branch SARS-COV-2 COVID-19 2020-05-22 Completed Unive rsity of MODERNA VACCINE 00:00:00 [place] Med ical Branch SARS-COV-2 COVID-19 2020-05-22 Completed Unive rsity of MODERNA VACCINE 00:00:00 [place] Med ical Branch SARS-COV-2 COVID-19 2020-05-22 Completed Unive rsity of MODERNA VACCINE 00:00:00 [place] Med ical Branch SARS-COV-2 COVID-19 2020-05-22 Completed Unive rsity of MODERNA VACCINE 00:00:00 [place] Med ical Branch SARS-COV-2 COVID-19 2020-05-22 Completed Unive rsity of MODERNA VACCINE 00:00:00 [place] Med ical Branch SARS-COV-2 COVID-19 2020-05-22 Completed Unive rsity of MODERNA VACCINE 00:00:00 [place] Med ical Branch SARS-COV-2 COVID-19 2020-05-22 Completed Unive rsity of MODERNA VACCINE 00:00:00 [place] Med ical Branch SARS-COV-2 COVID-19 2020-05-22 Completed Unive rsity of MODERNA VACCINE 00:00:00 [place] Med ical Branch SARS-COV-2 COVID-19 2020-05-22 Completed Unive rsity of MODERNA VACCINE 00:00:00 [place] Med ical Branch SARS-COV-2 COVID-19 2020-05-22 Completed Unive rsity of MODERNA VACCINE 00:00:00 [place] Med ical Branch SARS-COV-2 COVID-19 2020-05-22 Completed Unive rsity of MODERNA VACCINE 00:00:00 [place] Med ical Branch SARS-COV-2 COVID-19 2020-05-22 Completed Unive rsity of MODERNA VACCINE 00:00:00 [place] Med ical Branch SARS-COV-2 COVID-19 2020-05-22 Completed Unive rsity of MODERNA VACCINE 00:00:00 [place] Med ical Branch SARS-COV-2 COVID-19 2020-05-22 Completed Unive rsity of MODERNA VACCINE 00:00:00 [place] Med ical Branch SARS-COV-2 COVID-19 2020-05-22 Completed Unive rsity of MODERNA VACCINE 00:00:00 [place] Med ical Branch SARS-COV-2 COVID-19 2020-05-22 Completed Unive rsity of MODERNA VACCINE 00:00:00 [place] Med ical Branch SARS-COV-2 COVID-19 2020-05-22 Completed Unive rsity of MODERNA VACCINE 00:00:00 [place] Med ical Branch SARS-COV-2 COVID-19 2020-05-22 Completed Unive rsity of MODERNA VACCINE 00:00:00 [place] Med ical Branch SARS-COV-2 COVID-19 2020-05-22 Completed Unive rsity of MODERNA VACCINE 00:00:00 [place] Med ical Branch SARS-COV-2 COVID-19 2020-05-22 Completed Unive rsity of MODERNA VACCINE 00:00:00 [place] Med ical Branch SARS-COV-2 COVID-19 2020-05-22 Completed Unive rsity of MODERNA VACCINE 00:00:00 [facility] SARS-COV-2 COVID-19 2020-05-22 Completed Unive rsity of MODERNA VACCINE 00:00:00 [facility] SARS-COV-2 COVID-19 2020-05-22 Completed Unive rsity of MODERNA VACCINE 00:00:00 [facility] SARS-COV-2 COVID-19 2020-05-22 Completed Unive rsity of MODERNA VACCINE 00:00:00 [facility] SARS-COV-2 COVID-19 2020-05-22 Completed Unive rsity of MODERNA VACCINE 00:00:00 [facility] SARS-COV-2 COVID-19 2020-05-22 Completed Unive rsity of MODERNA VACCINE 00:00:00 [facility] Influenza Virus 2013-02-27 Completed Universit y of Vaccine 00:00:00 [facility] Influenza Virus 2013-02-27 Completed Universit y of Vaccine 00:00:00 [facility] Influenza Virus 2013-02-27 Completed Universit y of Vaccine 00:00:00 [facility] Influenza Virus 2013-02-27 Completed Universit y of Vaccine 00:00:00 [facility] Influenza Virus 2013-02-27 Completed Universit y of Vaccine 00:00:00 [facility] Influenza Virus 2013-02-27 Completed Universit y of Vaccine 00:00:00 [facility] Influenza Virus 2013-02-27 Completed Universit y of Vaccine 00:00:00 [facility] Influenza Virus 2013-02-27 Completed Universit y of Vaccine 00:00:00 [facility] Influenza Virus 2013-02-27 Completed Universit y of Vaccine 00:00:00 [facility] Influenza Virus 2013-02-27 Completed Universit y of Vaccine 00:00:00 [facility] Influenza Virus 2013-02-27 Completed Universit y of Vaccine 00:00:00 [facility] Influenza Virus 2013-02-27 Completed Universit y of Vaccine 00:00:00 [facility] Influenza Virus 2013-02-27 Completed Universit y of Vaccine 00:00:00 [facility] Influenza Virus 2013-02-27 Completed Universit y of Vaccine 00:00:00 [facility] Influenza Virus 2013-02-27 Completed Universit y of Vaccine 00:00:00 [facility] Influenza Virus 2013-02-27 Completed Universit y of Vaccine 00:00:00 [facility] Influenza Virus 2013-02-27 Completed Universit y of Vaccine 00:00:00 [facility] Influenza Virus 2013-02-27 Completed Universit y of Vaccine 00:00:00 [facility] Influenza Virus 2013-02-27 Completed Universit y of Vaccine 00:00:00 [facility] Influenza Virus 2013-02-27 Completed Universit y of Vaccine 00:00:00 [facility] Influenza Virus 2013-02-27 Completed Universit y of Vaccine 00:00:00 [facility] Influenza Virus 2013-02-27 Completed Universit y of Vaccine 00:00:00 [facility] Influenza Virus 2013-02-27 Completed Universit y of Vaccine 00:00:00 [facility] Influenza Virus 2013-02-27 Completed Universit y of Vaccine 00:00:00 [facility] Influenza Virus 2013-02-27 Completed Universit y of Vaccine 00:00:00 [facility] Influenza Virus 2013-02-27 Completed Universit y of Vaccine 00:00:00 [facility] Influenza Virus 2013-02-27 Completed Universit y of Vaccine 00:00:00 [facility] Influenza Virus 2013-02-27 Completed Universit y of Vaccine 00:00:00 [facility] Influenza Virus 2013-02-27 Completed Universit y of Vaccine 00:00:00 [facility] Influenza Virus 2013-02-27 Completed Universit y of Vaccine 00:00:00 [facility] Influenza Virus 2013-02-27 Completed Universit y of Vaccine 00:00:00 [facility] Influenza Virus 2013-02-27 Completed Universit y of Vaccine 00:00:00 [facility] Influenza Virus 2013-02-27 Completed Universit y of Vaccine 00:00:00 [facility] Influenza Virus 2013-02-27 Completed Universit y of Vaccine 00:00:00 [facility] Influenza Virus 2013-02-27 Completed Universit y of Vaccine 00:00:00 [facility] Influenza Virus 2013-02-27 Completed [facility] 00:00[facility]00 [facility] Influenza Virus 2013-02-27 Completed [facility] 00:00:00 [facility] Influenza Virus 2013-02-27 Completed [facility] 00:00:00 [facility] Vital Signs Vital Name Observation Time Observation Value Comments Source WEIGHT 2020-09-05 85.548 kg 19:05:00 WEIGHT 2020-08-28 83.9 kg 04:41:00 WEIGHT 2020-08-27 84.959 kg 05:27:00 WEIGHT 2020-08-26 85.821 kg 02:50:00 HEIGHT 2020-08-26 152.4 cm 02:50:00 Systolic blood 2021-02-13 159 mm[Hg] [facility] pressure 02:02:00 [facility] Diastolic blood 2021-02-13 95 mm[Hg] [facility] pressure 02:02:00 [facility] Body temperature 2021-02-13 36.67 R[facility] 02:02:00 [facility] Respiratory rate 2021-02-13 17 /min [facility] 02:02:00 [facility] Oxygen saturation 2021-02-13 93 /min [facility] in Arterial blood 02:02:00 [facility] brandy by Pulse oximetry Branch Heart rate 2021-02-13 73 /min [facility] 01:00:00 [facility] Body height 2021-02-12 152.4 cm [facility] 19:07:00 [facility] Body weight 2021-02-12 86.183 kg [facility] 19:07:00 [facility] BMI 2021-02-12 37.11 kg/m2 [facility] 19:07:00 [facility] Systolic blood 2021-01-18 155 mm[Hg] [facility] pressure 05:45:00 [facility] Diastolic blood 2021-01-18 93 mm[Hg] [facility] pressure 05:45:00 [facility] Heart rate 2021-01-18 86 /min University 05:45:00 [facility] Respiratory rate 2021-01-18 14 /min [facility] 05:45:00 [facility] Oxygen saturation 2021-01-18 99 /min [facility] in Arterial blood 05:45:00 [place] [facility] Pulse oxim[facility] Body temperature 2021-01-18 37.06 Roro [place] [facility] 02:32:00 [facility] Body height 2021-01-18 152.4 cm [place] [facility] 02:32:00 [facility] Body weight 2021-01-18 86.183 kg [place] [facility] 02:32:00 [facility] BMI 2021-01-18 37.11 kg/m2 [facility] 02:32:00 [facility] Systolic blood 2021-01-07 117 mm[Hg] [facility] pressure 16:25:00 [facility] Diastolic blood 2021-01-07 79 mm[Hg] [facility] pressure 16:25:00 [facility] Heart rate 2021-01-07 85 /min [facility] 16:25:00 [facility] Body temperature 2021-01-07 36.89 [place] 16:25:00 [facility] Respiratory rate 2021-01-07 16 /min [facility] 16:25:00 [facility] Body height 2021-01-07 152.4 cm [facility] 16:25:00 [facility] Body weight 2021-01-07 77.111 kg [facility] of 16:25:00 [facility] BMI 2021-01-07 33.20 kg/m2 [facility] 16:25:00 [facility] Oxygen saturation 2021-01-07 96 /min [place] [facility] in Arterial blood 16:25:00 [facility] by Pulse oximetry Branch Systolic blood 2020-12-30 148 mm[Hg] [facility] pressure 22:35:00 [facility] Diastolic blood 2020-12-30 107 mm[Hg] [facility] pressure 22:35:00 [facility] Heart rate 2020-12-30 78 /min [facility] 22:35:00 [facility] Respiratory rate 2020-12-30 18 /min [facility] 22:35:00 [facility] Oxygen saturation 2020-12-30 97 /min [place] [facility] in Arterial blood 22:35:00 [facility] by Pulse oximetry Branch Body temperature 2020-12-30 37.44 [facility] 18:12:00 [facility] Body height 2020-12-30 152.4 cm [facility] 18:12:00 [facility] Body weight 2020-12-30 77.111 kg [facility] of 18:12:00 [facility] BMI 2020-12-30 33.20 kg/m2 [facility] 18:12:00 [facility] Systolic blood 2020-12-30 122 mm[Hg] [facility] pressure 15:13:00 [facility] Diastolic blood 2020-12-30 87 mm[Hg] [facility] pressure 15:13:00 [facility] Heart rate 2020-12-30 83 /min [facility] 15:13:00 [facility] Body temperature 2020-12-30 36.83 [place] 15:13:00 [facility] Respiratory rate 2020-12-30 18 /min [facility] 15:13:00 [facility] Body height 2020-12-30 152.4 cm [facility] 15:13:00 [facility] Body weight 2020-12-30 83.553 kg [facility] of 15:13:00 [facility] BMI 2020-12-30 35.97 kg/m2 [facility] 15:13:00 [facility] Systolic blood 2020-12-16 123 mm[Hg] [facility] pressure 15:21:00 [facility] Diastolic blood 2020-12-16 90 mm[Hg] [facility] pressure 15:21:00 [facility] Heart rate 2020-12-16 81 /min [facility] 15:21:00 [facility] Body temperature 2020-12-16 36.83 [place] 15:21:00 [facility] Respiratory rate 2020-12-16 18 /min [facility] 15:21:00 [facility] Body height 2020-12-16 152.4 cm [facility] 15::00 [facility] Body weight 2020-12-16 83.915 kg [facility] of 15:21:00 [facility] BMI 2020-12-16 36.13 kg/m2 [facility] of 15:21:00 [facility] Systolic blood 2020-12-05 167 mm[Hg] [facility] pressure 22:45:00 [facility] Diastolic blood 2020-12-05 101 mm[Hg] [facility] pressure 22:45:00 [facility] Heart rate 2020-12-05 76 /min [facility] 22:45:00 [facility] Respiratory rate 2020-12-05 20 /min [facility] 22:45:00 [facility] Oxygen saturation 2020-12-05 97 /min [facility] in Arterial blood 22:45:00 [facility] by Pulse oximetry [place] Body temperature 2020-12-05 37.11 R[facility] 19:05:00 [facility] Body weight 2020-12-05 77.111 kg [facility] of 19:05:00 [facility] BMI 2020-12-05 33.20 kg/m2 [facility] of 19:05:00 [facility] Systolic blood 2020-10-12 111 mm[Hg] [facility] pressure 20:04:00 [facility] Diastolic blood 2020-10-12 77 mm[Hg] [facility] pressure 20:04:00 [facility] Heart rate 2020-10-12 74 /min [facility] 20:04:00 [facility] Body temperature 2020-10-12 36.06 [place] 20:04:00 [facility] Respiratory rate 2020-10-12 18 /min [facility] of 20:04:00 [facility] Oxygen saturation 2020-10-12 97 /min [facility] in Arterial blood 20:04:00 [facility] brandy by Pulse oximetry Branch Body height 2020-10-12 152.4 cm [facility] 02:36:00 [facility] Body weight 2020-10-12 84.46 kg [facility] of 02:36:00 [facility] BMI 2020-10-12 36.36 kg/m2 [facility] of 02:36:00 [facility] Systolic blood 2020-10-12 111 mm[Hg] [facility] pressure 20:04:00 [facility] Diastolic blood 2020-10-12 77 mm[Hg] [facility] pressure 20:04: [facility] Heart rate 2020-10-12 74 /min [facility] of 20:04:00 [facility] Body temperature 2020-10-12 36.06 [place] 20:04:00 [facility] Respiratory rate 2020-10-12 18 /min [facility] 20:04:00 [facility] Oxygen saturation 2020-10-12 97 /min [facility] in Arterial blood 20:04:00 [facility] by Pulse oximetry Branch Body height 2020-10-12 152.4 cm [facility] of 02:36:00 [facility] Body weight 2020-10-12 84.46 kg [facility] of 02:36:00 [facility] BMI 2020-10-12 36.36 kg/m2 [facility] of 02:36:00 [facility] Systolic blood 2020-10-05 129 mm[Hg] [facility] pressure 01:00:00 [facility] Diastolic blood 2020-10-05 88 mm[Hg] [facility] pressure 01:00:00 [facility] Heart rate 2020-10-05 72 /min [facility] 01:00:00 [facility] Respiratory rate 2020-10-05 18 /min [facility] 01:00:00 [facility] Oxygen saturation 2020-10-05 95 /min [facility] in Arterial blood 01:00:00 [place] [facility]ulse o[facility] Body temperature 2020-10-04 37.72 [place] 22:44:00 [facility] Body weight 2020-10-04 77.111 kg [facility] of 22:44:00 [facility] BMI 2020-10-04 33.20 kg/m2 [facility] of 22:44:00 [facility] Systolic blood 2020-10-05 129 mm[Hg] [facility] pressure 01:00:00 [facility] Diastolic blood 2020-10-05 88 mm[Hg] [facility] pressure 01:00:00 [facility] Heart rate 2020-10-05 72 /min [facility] of 01:00:00 [facility] Respiratory rate 2020-10-05 18 /min [facility] 01:00:00 [facility] Oxygen saturation 2020-10-05 95 /min [facility] in Arterial blood 01:00:00 [facility] by Pulse oximetry Branch Body temperature 2020-10-04 37.72 [place] 22:44:00 [facility] Body weight 2020-10-04 77.111 kg University of 22:44:00 [facility] BMI 2020-10-04 33.20 kg/m2 [facility] of 22:44:00 [facility] WEIGHT 2020-09-05 85.548 kg 19:05:00 WEIGHT 2020-08-28 83.9 kg 04:41:00 WEIGHT 2020-08-27 84.959 kg 05:27:00 WEIGHT 2020-08-26 85.821 kg 02:50:00 HEIGHT 2020-08-26 152.4 cm 02:50:00 Systolic blood 2020-08-05 157 mm[Hg] [facility] pressure 13:12:00 [facility] Diastolic blood 2020-08-05 128 mm[Hg] [facility] pressure 13:12:00 [facility] Heart rate 2020-08-05 95 /min [facility] of 13:12:00 [facility] Body temperature 2020-08-05 36.67 [facility] 13:12:00 [facility] Respiratory rate 2020-08-05 18 /min [facility] of 13:12:00 [facility] Body weight 2020-08-05 77.111 kg [facility] of 13:12:00 [facility] BMI 2020-08-05 33.20 kg/m2 [facility] 13:12:00 [facility] Oxygen saturation 2020-08-05 98 /min [facility] in Arterial blood 13:12:00 [place] [facility] Pulse oxim[facility] Systolic blood 2020-08-05 157 mm[Hg] [facility] pressure 13:12:00 [facility] Diastolic blood 2020-08-05 128 mm[Hg] [facility] pressure 13:12:00 [facility] Heart rate 2020-08-05 95 /min [facility] 13:12:00 [facility] Body temperature 2020-08-05 36.67 [facility] 13:12:00 [facility] Respiratory rate 2020-08-05 18 /min [facility] 13:12:00 [facility] Body weight 2020-08-05 77.111 kg University of 13:12:00 [facility] BMI 2020-08-05 33.20 kg/m2 [facility] of 13:12:00 [facility] Oxygen saturation 2020-08-05 98 /min [facility] in Arterial blood 13:12:00 [facility] brandy by Pulse oximetry Branch Systolic blood 2020-07-18 184 mm[Hg] [facility] pressure 13:22:00 [facility] Diastolic blood 2020-07-18 110 mm[Hg] [facility] pressure 13:22:00 [facility] Heart rate 2020-07-18 71 /min [facility] 13:22:00 [facility] Respiratory rate 2020-07-18 18 /min [facility] of 13:22:00 [facility] Oxygen saturation 2020-07-18 100 /min [facility] in Arterial blood 13:22:00 [facility] brandy by Pulse oximetry Branch Body temperature 2020-07-18 36.56 [place] 12:49:00 [facility] Body height 2020-07-14 152.4 cm [facility] of 16:45:00 [facility] Body weight 2020-07-14 77.111 kg [facility] of 16:45:00 [facility] BMI 2020-07-14 33.20 kg/m2 [facility] of 16:45:00 [facility] Systolic blood 2020-07-18 184 mm[Hg] [facility] pressure 13:22:00 [facility] Diastolic blood 2020-07-18 110 mm[Hg] [facility] pressure 13:22:00 [facility] Heart rate 2020-07-18 71 /min [facility] 13:22:00 [facility] Respiratory rate 2020-07-18 18 /min [facility] 13:22:00 [facility] Oxygen saturation 2020-07-18 100 /min [facility] in Arterial blood 13:22:00 [facility] brandy by Pulse oximetry Branch Body temperature 2020-07-18 36.56 [place] 12:49:00 [facility] Body height 2020-07-14 152.4 cm [facility] of 16:45:00 [facility] Body weight 2020-07-14 77.111 kg [facility] of 16:45:00 [facility] BMI 2020-07-14 33.20 kg/m2 [facility] of 16:45:00 [facility] Systolic blood 2020-07-18 180 mm[Hg] [facility] pressure 12:59:00 [facility] Diastolic blood 2020-07-18 88 mm[Hg] [facility] pressure 12:59:00 [facility] Heart rate 2020-07-18 74 /min [facility] of 12:59:00 [facility] Respiratory rate 2020-07-18 17 /min [facility] of 12:59:00 [facility] Oxygen saturation 2020-07-18 100 /min [facility] in Arterial blood 12:59:00 [facility] by Pulse oximetry Branch Body temperature 2020-07-18 36.56 [place] 12:49:00 [facility] Body height 2020-07-14 152.4 cm [facility] of 16:45:00 [facility] Body weight 2020-07-14 77.111 kg [facility] of 16:45:00 [facility] BMI 2020-07-14 33.20 kg/m2 [facility] of 16:45:00 [facility] Systolic blood 2020-07-18 180 mm[Hg] [facility] pressure 12:59:00 [facility] Diastolic blood 2020-07-18 88 mm[Hg] [facility] pressure 12:59:00 [facility] Heart rate 2020-07-18 74 /min [facility] 12:59:00 [facility] Respiratory rate 2020-07-18 17 /min [facility] of 12:59:00 [facility] Oxygen saturation 2020-07-18 100 /min [facility] in Arterial blood 12:59:00 [facility] brandy by Pulse oximetry Branch Body temperature 2020-07-18 36.56 [place] 12:49:00 [facility] Body height 2020-07-14 152.4 cm [facility] 16:45:00 [facility] Body weight 2020-07-14 77.111 kg [facility] of 16:45:00 [facility] BMI 2020-07-14 33.20 kg/m2 [facility] of 16:45:00 [facility] Systolic blood 2020-07-08 187 mm[Hg] [facility] pressure 02:00:00 [facility] Diastolic blood 2020-07-08 102 mm[Hg] [facility] pressure 02:00:00 [facility] Heart rate 2020-07-08 84 /min [facility] of 02:00:00 [facility] Respiratory rate 2020-07-08 20 /min [facility] 02:00:00 [facility] Oxygen saturation 2020-07-08 100 /min [facility] in Arterial blood 02:00:00 [facility] by Pulse oximetry Branch Body temperature 2020-07-07 37.22 [place] 23:45:00 [facility] Body weight 2020-07-07 81.194 kg University of 23:45:00 [facility] BMI 2020-07-07 34.96 kg/m2 [facility] of 23:45:00 [facility] Systolic blood 2020-07-08 187 mm[Hg] [facility] pressure 02:00:00 [facility] Diastolic blood 2020-07-08 102 mm[Hg] [facility] pressure 02:00:00 [facility] Heart rate 2020-07-08 84 /min [facility] of 02:00:00 [facility] Respiratory rate 2020-07-08 20 /min [facility] 02:00:00 [facility] Oxygen saturation 2020-07-08 100 /min [facility] in Arterial blood 02:00:00 [facility] by Pulse oximetry Branch Body temperature 2020-07-07 37.22 [place] 23:45:00 [facility] Body weight 2020-07-07 81.194 kg [facility] of 23:45:00 [facility] BMI 2020-07-07 34.96 kg/m2 [facility] of 23:45:00 [facility] Systolic blood 2020-07-04 168 mm[Hg] [facility] pressure 13:34:00 [facility] Diastolic blood 2020-07-04 94 mm[Hg] [facility] pressure 13:34:00 [facility] Heart rate 2020-07-04 63 /min [facility] of 13:34:00 [facility] Oxygen saturation 2020-07-04 100 /min [facility] in Arterial blood 13:34:00 [facility] brandy by Pulse oximetry Branch Respiratory rate 2020-07-04 12 /min [facility] 13:23:00 [facility] Body temperature 2020-07-04 36.72 [place] 13:03:00 [facility] Body height 2020-07-01 152.4 cm [facility] of 17:45:00 [facility] Body weight 2020-07-01 81.647 kg [facility] of 17:45:00 [facility] BMI 2020-07-01 35.15 kg/m2 [facility] of 17:45:00 [facility] Systolic blood 2020-07-04 168 mm[Hg] [facility] pressure 13:34:00 [facility] Diastolic blood 2020-07-04 94 mm[Hg] [facility] pressure 13:34:00 [facility] Heart rate 2020-07-04 63 /min [facility] of 13:34:00 [facility] Oxygen saturation 2020-07-04 100 /min [facility] in Arterial blood 13:34:00 [facility] brandy by Pulse oximetry Branch Respiratory rate 2020-07-04 12 /min [facility] 13:23:00 [facility] Body temperature 2020-07-04 36.72 [place] 13:03:00 [facility] Body height 2020-07-01 152.4 cm [facility] of 17:45:00 [facility] Body weight 2020-07-01 81.647 kg [facility] of 17:45:00 [facility] BMI 2020-07-01 35.15 kg/m2 [facility] of 17:45:00 [facility] Systolic blood 2020-06-20 148 mm[Hg] [facility] pressure 14:33:00 [facility] Diastolic blood 2020-06-20 86 mm[Hg] [facility] pressure 14:33:00 [facility] Heart rate 2020-06-20 70 /min [facility] 14:33:00 [facility] Respiratory rate 2020-06-20 11 /min [facility] 14:33:00 [facility] Oxygen saturation 2020-06-20 98 /min [facility] in Arterial blood 14:33:00 [place] [facility] Body temperature 2020-06-20 36.33 [place] 14:18:00 [facility] Body height 2020-06-20 152.4 cm [facility] 12:30:00 [facility] Body weight 2020-06-20 81.647 kg [facility] of 12:30:00 [facility] BMI 2020-06-20 35.15 kg/m2 [facility] of 12:30:00 [facility] Systolic blood 2020-06-20 148 mm[Hg] [facility] pressure 14:33:00 [facility] Diastolic blood 2020-06-20 86 mm[Hg] [facility] pressure 14:33:00 [facility] Heart rate 2020-06-20 70 /min [facility] of 14:33:00 [facility] Respiratory rate 2020-06-20 11 /min [facility] of 14:33:00 [facility] Oxygen saturation 2020-06-20 98 /min [facility] in Arterial blood 14:33:00 [facility] brandy by Pulse oximetry Branch Body temperature 2020-06-20 36.33 [place] 14:18:00 [facility] Body height 2020-06-20 152.4 cm [facility] 12:30:00 [facility] Body weight 2020-06-20 81.647 kg [facility] of 12:30:00 [facility] BMI 2020-06-20 35.15 kg/m2 [facility] of 12:30:00 [facility] Respiratory rate 2020-06-20 17 /min [facility] of 14:12:00 [facility] Respiratory rate 2020-06-20 17 /min [facility] 14:12:00 [facility] Systolic blood 2020-05-07 122 mm[Hg] [facility] pressure 00:05:00 [facility] Diastolic blood 2020-05-07 77 mm[Hg] [facility] pressure 00:05:00 [facility] Heart rate 2020-05-07 61 /min [facility] of 00:05:00 [facility] Respiratory rate 2020-05-07 17 /min [facility] of 00:05:00 [facility] Oxygen saturation 2020-05-07 100 /min [facility] in Arterial blood 00:05:00 [facility] brandy by Pulse oximetry Branch Body temperature 2020-05-06 37.06 [place] 21:17:00 [facility] Body height 2020-05-06 152.4 cm [facility] of 21:17:00 [facility] Body weight 2020-05-06 77.111 kg [facility] of 21:17:00 [facility] BMI 2020-05-06 33.20 kg/m2 [facility] 21:17:00 [facility] Systolic blood 2020-05-07 122 mm[Hg] [facility] pressure 00:05:00 [facility] Diastolic blood 2020-05-07 77 mm[Hg] [facility] pressure 00:05:00 [facility] Heart rate 2020-05-07 61 /min [facility] 00:05:00 [facility] Respiratory rate 2020-05-07 17 /min [facility] of 00:05:00 [facility] Oxygen saturation 2020-05-07 100 /min [facility] in Arterial blood 00:05:00 [facility] by Pulse oximetry Branch Body temperature 2020-05-06 37.06 [place] 21:17:00 [facility] Body height 2020-05-06 152.4 cm University of 21:17:00 [facility] Body weight 2020-05-06 77.111 kg University of 21:17:00 [facility] BMI 2020-05-06 33.20 kg/m2 [facility] of 21:17:00 [facility] Systolic blood 2020-03-26 170 mm[Hg] [facility] pressure 07:00:00 [facility] Diastolic blood 2020-03-26 110 mm[Hg] [facility] o [facility] pressure 07:00:00 [facility] Heart rate 2020-03-26 77 /min [facility] 07:00:00 [facility] Respiratory rate 2020-03-26 18 /min [facility] of 07:00:00 [facility] Oxygen saturation 2020-03-26 96 /min [facility] in Arterial blood 07:00:00 [facility] by Pulse oximetry Branch Body temperature 2020-03-26 37.67 [place] 03:07:00 [facility] Body height 2020-03-26 152.4 cm [facility] of 03:07:00 [facility] Body weight 2020-03-26 77.111 kg University of 03:07:00 [facility] BMI 2020-03-26 33.20 kg/m2 [facility] of 03:07:00 [facility] Systolic blood 2020-03-26 170 mm[Hg] [facility] pressure 07:00:00 [facility] Diastolic blood 2020-03-26 110 mm[Hg] [facility] pressure 07:00:00 [facility] Heart rate 2020-03-26 77 /min [facility] 07:00:00 [facility] Respiratory rate 2020-03-26 18 /min [facility] of 07:00:00 [facility] Oxygen saturation 2020-03-26 96 /min [facility] in Arterial blood 07:00:00 [facility] brandy by Pulse oximetry Branch Body temperature 2020-03-26 37.67 [place]oro [facility] 03:07:00 [facility] Body height 2020-03-26 152.4 cm [facility] of 03:07:00 [facility] Body weight 2020-03-26 77.111 kg University of 03:07:00 [facility] BMI 2020-03-26 33.20 kg/m2 [facility] of 03:07:00 [facility] Systolic blood 2020-02-08 134 mm[Hg] [facility] pressure 20:21:00 [facility] Diastolic blood 2020-02-08 94 mm[Hg] [facility] 20:21:00 [facility] [facility] Heart rate 2020-02-08 76 /min University of 20:21:00 [facility] Body temperature 2020-02-08 36.11 Roro University of 20:21:00 [facility] Respiratory rate 2020-02-08 17 /min University of 20:21:00 [facility] Oxygen saturation 2020-02-08 100 /min University of in Arterial blood 20:21:00 [facility] brandy by Pulse oximetry Branch Body weight 2020-02-03 80.468 kg University of 08:16:00 [facility] BMI 2020-02-03 34.65 kg/m2 University of 08:16:00 [facility] Systolic blood 2020-02-08 134 mm[Hg] University of pressure 20:21:00 [facility] Diastolic blood 2020-02-08 94 mm[Hg] University o f pressure 20:21:00 [facility] Heart rate 2020-02-08 76 /min University of 20:21:00 [facility] Body temperature 2020-02-08 36.11 Roro University of 20:21:00 [facility] Respiratory rate 2020-02-08 17 /min University of 20:21:00 [facility] Oxygen saturation 2020-02-08 100 /min University of in Arterial blood 20:21:00 [facility] brandy by Pulse oximetry Branch Body weight 2020-02-03 80.468 kg University of 08:16:00 [facility] BMI 2020-02-03 34.65 kg/m2 University of 08:16:00 [facility] Systolic blood 2019-12-18 113 mm[Hg] University of pressure 23:30:00 [facility] Diastolic blood 2019-12-18 76 mm[Hg] University o f pressure 23:30:00 [facility] Heart rate 2019-12-18 57 /min University of 23:30:00 [facility] Respiratory rate 2019-12-18 18 /min University of 23:30:00 [facility] Oxygen saturation 2019-12-18 99 /min University of in Arterial blood 23:30:00 [facility] brandy by Pulse oximetry Branch Body temperature 2019-12-18 36.67 Roro University of 20:24:00 [facility] Body height 2019-12-18 152.4 cm University of 20:24:00 [facility] Body weight 2019-12-18 77.111 kg University of 20:24:00 [facility] BMI 2019-12-18 33.20 kg/m2 University of 20:24:00 [facility] Systolic blood 2019-12-18 113 mm[Hg] University of pressure 23:30:00 [facility] Diastolic blood 2019-12-18 76 mm[Hg] University o f pressure 23:30:00 [facility] Heart rate 2019-12-18 57 /min University of :30:00 [facility] Respiratory rate 2019-12-18 18 /min University of :30:00 [facility] Oxygen saturation 2019-12-18 99 /min University of in Arterial blood 23:30:00 [facility] by Pulse oximetry Branch Body temperature 2019-12-18 36.67 Orro University of 20:24:00 [facility] Body height 2019-12-18 152.4 cm University of 20:24:00 [facility] Body weight 2019-12-18 77.111 kg University of 20:24:00 [facility] BMI 2019-12-18 33.20 kg/m2 University of 20:24:00 [facility] Systolic blood 2019-08-22 159 mm[Hg] University of pressure 04:28:00 [facility] Diastolic blood 2019-08-22 99 mm[Hg] University o f pressure 04:28:00 [facility] Heart rate 2019-08-22 66 /min University of 04:28:00 [facility] Respiratory rate 2019-08-22 18 /min University of 04:28:00 [facility] Oxygen saturation 2019-08-22 95 /min University of in Arterial blood 04:28:00 [facility] brandy by Pulse oximetry Branch Body temperature 2019-08-22 36.61 Roro University [facility] 00:48:43 [facility] Body height 2019-08-22 152.4 cm University of 00:44:00 [facility] Body weight 2019-08-22 86.183 kg University of 00:44:00 [facility] BMI 2019-08-22 37.11 kg/m2 University of 00:44:00 [facility] Systolic blood 2019-08-22 159 mm[Hg] University of pressure 04:28:00 [facility] Diastolic blood 2019-08-22 99 mm[Hg] University o f pressure 04:28:00 [facility] Heart rate 2019-08-22 66 /min University of 04:28:00 [facility] Respiratory rate 2019-08-22 18 /min University of 04:28:00 [facility] Oxygen saturation 2019-08-22 95 /min University of in Arterial blood 04:28:00 [facility] by Pulse oximetry Branch Body temperature 2019-08-22 36.61 Roro University of 00:48:43 [facility] Body height 2019-08-22 152.4 cm University of 00:44:00 [facility] Body weight 2019-08-22 86.183 kg University of 00:44:00 [facility] BMI 2019-08-22 37.11 kg/m2 University of 00:44:00 [facility] Heart rate 2019-06-26 93 /min University of 00:53:00 [facility] Oxygen saturation 2019-06-26 94 /min University of in Arterial blood 00:53:00 [facility] by Pulse oximetry Branch Systolic blood 2019-06-26 149 mm[Hg] University of pressure 00:45:00 [facility] Diastolic blood 2019-06-26 106 mm[Hg] University o f pressure 00:45:00 [facility] Respiratory rate 2019-06-26 16 /min University of 00:45:00 [facility] Body temperature 2019-06-25 37.17 Roro University of 20:48:00 [facility] Body height 2019-06-25 152.4 cm University of 20:48:00 [facility] Body weight 2019-06-25 88.451 kg University of 20:48:00 [facility] BMI 2019-06-25 38.08 kg/m2 University of 20:48:00 [facility] Heart rate 2019-06-26 93 /min University of 00:53:00 [facility] Oxygen saturation 2019-06-26 94 /min University of in Arterial blood 00:53:00 [facility] brandy by Pulse oximetry Branch Systolic blood 2019-06-26 149 mm[Hg] University of pressure 00:45:00 [facility] Diastolic blood 2019-06-26 106 mm[Hg] University o f pressure 00:45:00 [facility] Respiratory rate 2019-06-26 16 /min University of 00:45:00 [facility] Body temperature 2019-06-25 37.17 Roro University of 20:48:00 [facility] Body height 2019-06-25 152.4 cm University of 20:48:00 [facility] Body weight 2019-06-25 88.451 kg University of 20:48:00 [facility] BMI 2019-06-25 38.08 kg/m2 University of 20:48:00 [facility] Systolic blood 2019-06-20 157 mm[Hg] University of pressure 00:30:00 [facility] Diastolic blood 2019-06-20 89 mm[Hg] University o f pressure 00:30:00 [facility] Heart rate 2019-06-20 70 /min University of 00:30:00 [facility] Oxygen saturation 2019-06-20 97 /min University of in Arterial blood 00:30:00 [facility] brandy by Pulse oximetry Branch Respiratory rate 2019-06-20 14 /min University of 00:04:00 [facility] Body height 2019-06-19 152.4 cm University of 19:46:00 [facility] Body weight 2019-06-19 88.451 kg University of 19:46:00 [facility] BMI 2019-06-19 38.08 kg/m2 University of 19:46:00 [facility] Body temperature 2019-06-19 37.06 Roro University of 19:45:00 [facility] Systolic blood 2019-06-20 157 mm[Hg] University of pressure 00:30:00 [facility] Diastolic blood 2019-06-20 89 mm[Hg] University o f pressure 00:30:00 [facility] Heart rate 2019-06-20 70 /min University of 00:30:00 [facility] Oxygen saturation 2019-06-20 97 /min University of in Arterial blood 00:30:00 [place] [facility] by Pulse oximetry Branch Respiratory rate 2019-06-20 14 /min University of 00:04:00 [facility] Body height 2019-06-19 152.4 cm University of 19:46:00 [facility] Body weight 2019-06-19 88.451 kg University of 19:46:00 [facility] BMI 2019-06-19 38.08 kg/m2 University of 19:46:00 [facility] Body temperature 2019-06-19 37.06 Roro University of 19:45:00 [facility] Systolic blood 2019-05-20 141 mm[Hg] University of pressure 02:59:00 [facility] Diastolic blood 2019-05-20 97 mm[Hg] University o f pressure 02:59:00 [facility] Heart rate 2019-05-20 86 /min University of 02:59:00 [facility] Respiratory rate 2019-05-20 16 /min University of 02:59:00 [facility] Oxygen saturation 2019-05-20 94 /min University of in Arterial blood 02:59:00 [facility] by Pulse oximetry Nettie Body temperature 2019-05-20 36.61 Roro University of 00:45:32 [facility] Body weight 2019-05-20 81.647 kg University of 00:16:00 [facility] BMI 2019-05-20 35.15 kg/m2 University of 00:16:00 [facility] Systolic blood 2019-05-20 141 mm[Hg] University of pressure 02:59:00 [facility] Diastolic blood 2019-05-20 97 mm[Hg] University o f pressure 02:59:00 [facility] Heart rate 2019-05-20 86 /min University of 02:59:00 [facility] Respiratory rate 2019-05-20 16 /min University of 02:59:00 [facility] Oxygen saturation 2019-05-20 94 /min University of in Arterial blood 02:59:00 [facility] by Pulse oximetry Nettie Body temperature 2019-05-20 36.61 Roro University of 00:45:32 [facility] Body weight 2019-05-20 81.647 kg University of 00:16:00 [facility] BMI 2019-05-20 35.15 kg/m2 University of 00:16:00 [facility] Systolic blood 2018-12-18 134 mm[Hg] University of pressure 13:38:00 [facility] Diastolic blood 2018-12-18 96 mm[Hg] University o f pressure 13:38:00 [facility] Heart rate 2018-12-18 75 /min University of 13:38:00 [facility] Respiratory rate 2018-12-18 18 /min University of 13:38:00 [facility] Body height 2018-12-18 152.4 cm University of 13:38:00 [facility] Body weight 2018-12-18 88.451 kg University of 13:38:00 [facility] BMI 2018-12-18 38.08 kg/m2 University of 13:38:00 [facility] Systolic blood 2018-12-08 159 mm[Hg] University of pressure 20:03:00 [facility] Diastolic blood 2018-12-08 111 mm[Hg] University o f pressure 20:03:00 [facility] Body height 2018-12-08 152.4 cm University of 20:03:00 [facility] Body weight 2018-12-08 88.451 kg University of 20:03:00 [facility] BMI 2018-12-08 38.08 kg/m2 University of 20:03:00 [facility] Systolic blood 2018-12-05 180 mm[Hg] University of pressure 13:04:00 [facility] Diastolic blood 2018-12-05 110 mm[Hg] University o f pressure 13:04:00 [facility] Heart rate 2018-12-05 74 /min University of 13:04:00 [facility] Respiratory rate 2018-12-05 18 /min University of 12:57:00 [facility] Body height 2018-12-05 152.4 cm University of 12:57:00 [facility] Body weight 2018-12-05 88.451 kg University of 12:57:00 [facility] BMI 2018-12-05 38.08 kg/m2 University of 12:57:00 [facility] Systolic blood 2018-12-01 139 mm[Hg] University of pressure 23:03:00 [facility] Diastolic blood 2018-12-01 72 mm[Hg] University o f pressure 23:03:00 [facility] Heart rate 2018-12-01 64 /min University of 23:03:00 [facility] Respiratory rate 2018-12-01 13 /min University of 22:02:00 [facility] Body temperature 2018-12-01 36.33 Roro University of 19:27:00 [facility] Body height 2018-12-01 152.4 cm University of 19:27:00 [facility] Body weight 2018-12-01 88.451 kg University of 19:27:00 [facility] BMI 2018-12-01 38.08 kg/m2 University of 19:27:00 [facility] Oxygen saturation 2018-12-01 88 /min [facility] in Arterial blood 19:27:00 [facility] by Pulse oximetry [place]ettie Systolic blood 2018-11-17 145 mm[Hg] reported to RN [facility] pressure 17:00:00 [facility] Diastolic blood 2018-11-17 80 mm[Hg] reported to RN [facility] pressure 17:00:00 [facility] Heart rate 2018-11-17 54 /min University of 17:00:00 [facility] Body temperature 2018-11-17 36.72 Roro University 17:00:00 [facility] Respiratory rate 2018-11-17 16 /min University 17:00:00 [facility] Oxygen saturation 2018-11-17 95 /min [facility] in Arterial blood 17:00:00 [facility] by Pulse oximetry [place]ettie Body height 2018-11-15 152.4 cm University 22:07:00 [facility] Body weight 2018-11-15 88.587 kg University 21:18:00 [facility] BMI 2018-11-15 38.14 kg/m2 University 21:18:00 [facility] Procedures Procedure Date / Time Performing Clinician Source Performed CT ABDOMEN PELVIS W 2021-02-12 22:22:23 Rosalinda Fisher [facility] LIPASE 2021-02-12 19:54:00 Natalia [facility] COMP. METABOLIC PANEL 2021-02-12 19:54:00 Natalia [facility] ([id number]) [facility] CBC WITH DIFF 2021-02-12 19:54:00 Rosalinda Fisher [facility] URINALYSIS 2021-02-12 19:54:00 Rosalinda Fisher [facility] CONSENT/REFUSAL FOR 2021-02-12 19:03:31 Doctor Unassigned, No Un [facility] DIAGNOSIS AND TREATMENT Name Medical Branch COMP. METABOLIC PANEL 2021-01-18 04:11:00 Maru Baez [facility] ([id number]) [facility] CT ABDOMEN PELVIS W 2021-01-18 03:35:25 Maru Baez [facility] CONTRAST [facility] LIPASE 2021-01-18 02:54:00 Maru Baez [facility] CBC WITH DIFF 2021-01-18 02:54:00 Maru Baez [facility] URINALYSIS 2021-01-18 02:54:00 Maru Baez [facility] CONSENT/REFUSAL FOR 2021-01-18 02:23:56 [facility]igned, [facility] Name Medical Branch XR CHEST 2 VW 2021-01-07 16:49:00 Consuelo Avendaño [place] o f [facility] COVID-19 (ID NOW RAPID 2020-12-30 22:02:00 [facility] CT ABDOMEN PELVIS W 2020-12-30 18:49:58 Maru Baez [facility] CONTRAST [facility] Branch LIPASE 2020-12-30 18:29:00 Maru Baez [facility] HEPATIC FUNCTION PANEL 2020-12-30 18:29:00 [facility] ([id number] (ALB,T.PRO,BILI Medical Branch T,BU/BC,ALT,AST,ALK PHOS) BASIC METABOLIC PANEL 2020-12-30 18:29:00 Maru Baez [facility] (NA, K, CL, CO2, GLUCOSE, Medica l Branch BUN, CREATININE, CA) CBC WITH DIFF 2020-12-30 18:29:00 Maru Baez [facility] URINALYSIS 2020-12-30 18:29:00 Maru Baez [facility] CONSENT/REFUSAL FOR 2020-12-30 18:01:18 Doctor Unassigned, No [facility] [place] [facility]REATMENT Name Medical Branch US PELVIS COMPLETE WITH 2020-12-23 21:36:03 Vira Washburn [facility] TRANSVAGINAL [facility] US GALL BLADDER 2020-12-05 22:39:34 Eliana [facility] LACTIC ACID WHOLE BLOOD 2020-12-05 22:16:00 Eliana Poole [facility] CT ABDOMEN PELVIS W 2020-12-05 21:23:47 Eliana Poole [facility] CONTRAST [facility] ASSIGNMENT OF BENEFITS 2020-12-05 20:53:22 Doctor Unassigned, No [facility] Name Medical Branch LIPASE 2020-12-05 20:12:00 Maru Baez [facility] COMP. METABOLIC PANEL 2020-12-05 20:12:00 Maru Baez [facility] ([id number]) Medical Branch CBC WITH DIFF 2020-12-05 20:12:00 Maru Baez [facility] URINALYSIS 2020-12-05 20:12:00 Maru Baez [facility] CONSENT/REFUSAL FOR 2020-12-05 18:56:42 Doctor Unassigned, No [facility] DIAGNOSIS AND TREATMENT Name Medical Branch MAGNESIUM 2020-10-12 08:21:00 [facility] 2020-10-12 08:21:00 [id number] T,BU/BC,ALT,AST,ALK PHOS) LIPID PANEL ([id number])(TOTAL 2020-10-12 08:21:00 Lissette Becerra [facility] CHOLESTEROL, [facility] TRIGLYCERIDES, HDL) CBC WITH DIFF 2020-10-12 08:21:00 [facility] PROT[facility]OMBIN TIME / INR 2020-10-12 08:21:00 Ramesh [facility] ACTIVATED PARTIAL 2020-10-12 08:21:00 Ramesh [facility] THRMPLAS [facility] HEPATIC FUNCTION PANEL 2020-10-12 03:31:00 [id number] ([facility] T,BU/BC,ALT,AST,ALK PHOS) BASIC METABOLIC PANEL 2020-10-12 03:31:00 Jose Luis Chandler [facility] (NA, K, CL, CO2, GLUCOSE, Medica l Branch BUN, CREATININE, CA) COVID-19 (ID NOW RAPID 2020-10-11 16:15:00 Farshad Ramirez [facility] TESTING) Medical Branch US GALL BLADDER 2020-10-11 15:26:59 Farshad Ramirez [facility] HB ECG ROUTINE & RHYTHM 2020-10-11 13:53:00 Farshad Ramirez [facility] STRIP Medical Branch LIPASE 2020-10-11 13:49:00 James Farshad [facility] TROPONIN I 2020-10-11 13:49:00 James [facility] HEPATIC FUNCTION PANEL 2020-10-11 13:49:00 James Farshad [facility] ([id number]) (ALB,T.PRO,BILI Medical Branch T,BU/BC,ALT,AST,ALK PHOS) BASIC METABOLIC PANEL 2020-10-11 13:49:00 Farshad Ramirez [facility] (NA, K, CL, CO2, GLUCOSE, Medica l Branch BUN, CREATININE, CA) CBC WITH DIFF 2020-10-11 13:49:00 James [facility] URINALYSIS 2020-10-11 13:49:00 James [facility] CONSENT/REFUSAL FOR 2020-10-11 13:29:15 Doctor Unassigned, No [facility] [place] [facility]RE[facility] Name Medical Branch COVID-19 (ID NOW RAPID 2020-10-04 23:19:00 Rosanna Valera [facility] TESTING) Medical Branch URINALYSIS 2020-10-04 23:18:00 Rosanna Valera [facility] LIPASE 2020-10-04 23:17:00 Rosanna Valera [facility] COMP. METABOLIC PANEL 2020-10-04 23:17:00 ValeraRosanna oleary [facility] ([id number]) Medical Branch CBC WITH DIFF 2020-10-04 23:17:00 Rosanna Valera [facility] CONSENT/REFUSAL FOR 2020-08-05 13:05:44 Doctor Unassigned, No [facility] Name Medical Branch FL TIME OR 2020-07-18 12:50:[address] [facility] (NON-REPORTABLE) Medical Branch FL TIME OR 2020-07-18 12:50:[address] [facility] (NON-REPORTABLE) Medical Branch BLOCK EPIDURAL 2020-07-18 12:25:00 Moise Gamez [facility] Medical [place]ett[place] POCT GLUCOSE (AUTOMATED) 2020-07-18 12:01:00 [facility] POCT GLUCOSE (AUTOMATED) 2020-07-18 12:01:00 [facility] DAY SURGERY - ADC 2020-07-18 05:01:00 Doctor Unassigned, No Univ [facility] Name Medical Branch CT ABDOMEN PELVIS W 2020-07-08 00:59:19 Jaki Polanco [facility] CONTRAST Medical Branch LIPASE 2020-07-08 00:23:00 Jaki Polanco [facility] MAGNESIUM 2020-07-08 00:23:00 Jaki Polanco [facility] TROPONIN I 2020-07-08 00:23:00 Jaki Polanco [facility] COMP. METABOLIC PANEL 2020-07-08 00:23:00 Jaki Polanco [facility] ([id number]) Medical Branch CBC WITH DIFF 2020-07-08 00:23:00 Jaki Polanco [facility] URINALYSIS 2020-07-08 00:23:00 Jaki Polanco [facility] COVID-19 (ID NOW RAPID 2020-07-08 00:23:00 Jaki Polanco [facility] TESTING) Medical Branch XR CHEST 1 VW 2020-07-08 00:01:58 Jaki Polanco [facility] CONSENT/REFUSAL FOR 2020-07-07 23:40:12 Doctor [facility]igned, [facility] Name Medical Nettie FL TIME OR 2020-07-04 13:10:[address] [facility] (NON-REPORTABLE) Medical Branch DAY SURGERY - ADC 2020-07-04 05:01:00 Doctor Unassigned, No [facility] [place] Name Medical Branch ASSIGNMENT OF BENEFITS 2020-07-01 14:01:02 Doctor Unassigned, No [facility] [place] Name Medical Branch FL TIME OR 2020-06-20 14:12:00 Moise Gamez [facility] (NON-REPORTABLE) Medical Branch DAY SURGERY - [facility] 2020-06-20 06:01:00 Doctor Unassigned, No [facility] [place] Name Medical Branch ASSIGNMENT OF BENEFITS 2020-06-17 21:21:05 Doctor Unassigned, No [facility] [place] Name Medical Branch CONSENT/REFUSAL FOR 2020-06-15 20:59:25 Doctor Unassigned, No [facility] [place] DIAGNOSIS AND TREATMENT Name Medical Branch CONSENT/REFUSAL FOR 2020-06-15 20:59:25 Doctor Unassigned, No [facility] [place] DIAGNOSIS AND TREATMENT Name Medical Branch ASSIGNMENT OF BENEFITS 2020-06-15 20:59:08 Doctor Unassigned, No [facility] [place] Name Medical Branch ASSIGNMENT OF BENEFITS 2020-06-15 20:59:08 Doctor Unassigned, No [facility] [place] Name Medical Branch CONSENT/REFUSAL FOR 2020-06-15 20:58:52 Doctor Unassigned, No [facility] [place] DIAGNOSIS AND TREATMENT Name Medical Branch CONSENT/REFUSAL FOR 2020-06-15 20:58:52 Doctor Unassigned, No [facility] [place] DIAGNOSIS AND TREATMENT Name Medical Branch ASSIGNMENT OF BENEFITS 2020-06-15 20:58:37 Doctor Unassigned, No [facility] [place] Name Medical Branch ASSIGNMENT OF BENEFITS 2020-06-15 20:58:37 Doctor Unassigned, No [facility] [place] Name Medical Branch NOTICE OF PRIVACY 2020-06-15 20:58:21 Doctor Unassigned, No [facility] [place] [facility] Name Medical Branch NOTICE OF PRIVACY 2020-06-15 20:58:21 Doctor Unassigned, No [facility] [place] [facility] Name Medical Branch CONSENT/REFUSAL FOR 2020-06-15 20:58:08 Doctor Unassigned, No [facility] [place] DIAGNOSIS AND TREATMENT Name Medical Branch CONSENT/REFUSAL FOR 2020-06-15 20:58:08 Doctor Unassigned, No [facility] [place] DIAGNOSIS AND TREATMENT Name Medical Branch ASSIGNMENT OF BENEFITS 2020-06-15 20:57:50 Doctor Unassigned, No [facility] ASSIGNMENT OF BENEFITS 2020-06-15 20:57:50 Doctor Unassigned, No [facility] DSU PRE-OP 2020-06-15 06:01:00 Doctor Unassigned, No [facility] PRE-OP 2020-06-15 06:01:00 Doctor Unassigned, No [facility] HEPATIC FUNCTION PANEL 2020-05-06 22:56:00 [facility] ([id number]) (ALB,T.PRO,BILI Medical Branch T,BU/BC,ALT,AST,ALK PHOS) BASIC METABOLIC PANEL 2020-05-06 22:56:00 [facility] ([facility], K, CL, CO2, GLUCOSE, Medica l Branch BUN, CREATININE, CA) XR CHEST 1 VW 2020-05-06 21:44:02 Asaf [facility] LIPASE 2020-05-06 21:40[facility] 2020-05-06 [facility]:40[facility] CBC WITH DIFF 2020-05-06 21:40[facility] 2020-05-06 21:32:00 [facility] [facility] COVID-19 (ID NOW RAPID 2020-05-06 21:32:00 [facility] TESTING) [facility] NOTICE OF PRIVACY 2020-05-06 21:14:50 Doctor Unassigned, No [facility] PRACTICES Name [facility] CONSENT/REFUSAL FOR 2020-05-06 21:14:25 Doctor Unassigned, No [facility] CT ABDOMEN PELVIS W 2020-03-26 06:12:05 Erasmo Grayson [facility] CONTRAST Medical Branch URINALYSIS 2020-03-26 05:02:00 Erasmo Grayson [facility] LIPASE 2020-03-26 03:38:00 Erasmo Grayson [facility] COMP. METABOLIC PANEL 2020-03-26 03:38:00 Erasmo Grayson [facility] ([id number]) Medical Branch CBC WITH DIFF 2020-03-26 03:38:00 Erasmo Grayson [facility] COVID-19 (ID NOW RAPID 2020-03-26 03:38:00 Erasmo Grayson [facility] TESTING) Medical Branch CONSENT/REFUSAL FOR 2020-03-26 02:58:31 Doctor Unassigned, No [facility] DIAGNOSIS AND TREATMENT Name Medical Branch REFERRAL- 2020-03-18 06:01:00 Doctor Unassigned, No [facility] REQUEST/RESPONSE Name [facility] MR BRAIN WO CONTRAST 2020-02-08 13:47:00 Monet Dominguez [facility] BASIC METABOLIC PANEL 2020-02-07 08:51:00 [facility] (NA, K, CL, CO2, GLUCOSE, Medica l Branch BUN, CREATININE, CA) CBC WITH DIFF 2020-02-07 08:51:00 [facility] METABOLIC PANEL 2020-02-05 09:37:00 Juan Luis lesly [facility] ([id number]) [facility] CBC WITH DIFF 2020-02-05 09:37:00 Juan Luis lesly [facility] MR CERVICAL SPINE WO 2020-02-05 00:24:54 Get Aguillon [facility] CONTRAST [facility] MAGNESIUM 2020-02-04 10:01:00 Juan Luis lesly [facility] COMP. METABOLIC PANEL 2020-02-04 10:01:00 Juan Luis lesly [facility] ([id number]) Medical Branch CBC WITH DIFF 2020-02-04 10:01:00 Get Aguillon [facility] N-TERMINAL PRO-BNP 2020-02-04 10:01:00 Alex Mcknight [facility] BLOOD CULTURE SCREEN 2020-02-03 22:19:00 Alex Mcknight [facility] RENAL ARTERY DUPLEX BY 2020-02-03 17:42:39 [facility] VASCULAR LAB [facility] AMMONIA, PLASMA 2020-02-03 17:06:00 Juan Luis lesly [facility] SMOOTH MUSCLE AB,IGG 2020-02-03 16:43:[address] [facility] W/REFLEX [facility] OCCULT (GUAIAC) BLOOD 2020-02-03 16:42:00 Alex Mcknight [facility] PHOSPHORUS 2020-02-03 08:45:00 Juan Luis [facility] CREATINE KINASE 2020-02-03 08:45:00 Juan Luis [facility] URIC ACID 2020-02-03 08:45:00 Juan Luis [facility] MAGNESIUM 2020-02-03 08:45:00 Juan Luis [facility] COMP. METABOLIC PANEL 2020-02-03 08:45:00 Alex Mcknight [facility] ([id number]) [facility] CBC WITH DIFF 2020-02-03 08:45:00 Juan Luis [facility] N-TERMINAL PRO-BNP 2020-02-03 08:45:00 Alex Mcknight [facility] BLOOD CULTURE SCREEN 2020-02-02 20:19:00 Juan Luis lesly [facility] BLOOD CULTURE SCREEN 2020-02-02 19:58:00 Alex Mcknight [facility] CERULOPLASMIN 2020-02-02 19:58:00 Kenroy Hawkins [facility] VALPROIC ACID, FREE 2020-02-02 19:58:00 Alex Mcknight [facility] PROTHROMBIN TIME / INR 2020-02-02 19:58:00 [facility] ANTI-NUCLEAR ANTIBODY 2020-02-02 19:58:00 Kenroy Hawkins [facility] SCREEN [facility] HEPATITIS B SURFACE 2020-02-02 19:58:00 Alex Mcknight [facility] ANTIBODY [facility] HEPATITIS B SURFACE 2020-02-02 19:58:00 Alex Mcknight [facility] ANTIGEN [facility] HCV ANTIBODY 2020-02-02 19:58:00 Juan Luis lesly [facility] HAV ANTIBODY (IGG AND 2020-02-02 19:58:00 Alex Mcknight [facility] IGM) [facility] PROCALCITONIN 2020-02-02 19:58:00 Juan Luis [facility] BLOOD CULTURE WORKUP 2020-02-02 19:58:00 Juan Luis lesly [facility] CREATINE KINASE 2020-02-02 11:31:00 Juan Luis [facility] LIPASE 2020-02-02 11:31:00 [facility]. METABOLIC PANEL 2020-02-02 11:31:00 [facility] ([id number]) [facility] LIPID PANEL ([id number])(TOTAL 2020-02-02 11:31:00 Alex Mcknight [facility] CHOLESTEROL, [facility] TRIGLYCERIDES, HDL) LITHIUM 2020-02-02 11:31:[facility] (AUTOMATED) 2020-02-02 11:24:00 Pasha Hinojosa [facility] LIPASE 2020-02-02 08:21:00 Micaela Pasha [facility] COMP. METABOLIC PANEL 2020-02-02 08:21:00 [facility] ([id number]) [facility] LITHIUM 2020-02-02 08:21:00 Pasha Hinojosa [facility] CBC WITH DIFF 2020-02-02 08:21:00 Pasha Hinojosa [facility] GLYCOSYLATED HEMOGLOBIN 2020-02-02 08:21:00 Alex Mcknight [facility] (A1C) [facility] ACUTE CARE VENOUS BLOOD 2020-02-01 19:23:00 Pasha Hinojosa [facility] GAS [facility] US ABDOMEN COMPLETE 2020-02-01 16:39:39 [facility] PO[facility] GLUCOSE (AUTOMATED) 2020-02-01 12:46:00 Abdullah, Pasha [facility] LIPASE 2020-02-01 10:09:00 [facility] COMP. METABOLIC PANEL 2020-02-01 10:09:00 [facility] ([id number] Medical Nettie LITHIUM 2020-02-01 10:09:00 [facility] CBC WITH DIFF 2020-02-01 10:09:00 Micaela [facility] OSMOLALITY SERUM 2020-02-01 00:10:00 Micaela [facility] VITAMIN B12, LEVEL 2020-02-01 00:10:00 Pasha Hinojosa [facility] FOLATE 2020-02-01 00:10:00 Micaela [facility] ABG+COOX+NA+K+GLU+CA2+ 2020-01-31 20:39:00 Kirstin Ron [facility] BLOOD CULTURE SCREEN 2020-01-31 18:21:00 Kirstin Ron [facility] IRON PANEL 2020-01-31 18:21:00 Micaela [facility] SALICYLATE 2020-01-31 18:21:00 [facility] 2020-01-31 18:21:00 [facility] VALPROIC ACID, TOTAL 2020-01-31 18:21:00 Kirstin Ron [facility] BLOOD CULTURE WORKUP 2020-01-31 18:21:00 Kirstin Ron [facility] ADC OR PERICO ONLY - RPR 2020-01-31 18:21:00 P[facility] 2020-01-31 18:21:00 Kirstin Ron [facility] DNA [facility] PROBE-AEROBIC XR ABDOMEN 1 VW 2020-01-31 17:09:26 Kirstin Ron [facility] XR CHEST 1 VW 2020-01-31 17:09:26 Kirstin Ron [facility] CT HEAD WO CONTRAST 2020-01-31 16:58:10 Kirstin Ron [facility] URINALYSIS 2020-01-31 16:13:00 Asaf [facility] URINE CULTURE 2020-01-31 16:13:00 Asaf [facility] ADC / LCC - DRUG SCREEN 2020-01-31 16:13:00 Kirstin Ron [facility] TRIAGE Medical Branch COVID-19 (ID NOW RAPID 2020-01-31 16:00:00 Asaf [facility] TESTING) Medical Branch LAB ONLY COVID 2020-01-31 16:00:00 Asaf [facility] INTERPRETATION [facility] BLOOD CULTURE SCREEN 2020-01-31 15:58:00 [facility] CREATINE KINASE 2020-01-31 15:58:00 Asaf [facility] LIPASE 2020-01-31 15:58:00 Asaf [facility] FERRITIN SERUM 2020-01-31 15:58:00 Micaela [facility] AMMONIA, PLASMA 2020-01-31 15:58:00 Asaf [facility] TROPONIN I 2020-01-31 15:58:00 Asaf [facility] THYROID STIMULATING 2020-01-31 15:58:00 Pasha Hinojosa [facility] HORMONE [facility] HEPATIC FUNCTION PANEL 2020-01-31 15:58:00 Ron, [facility] ([id number]) (ALB,T.PRO,BILI Medical Branch T,BU/BC,ALT,AST,ALK PHOS) BASIC METABOLIC PANEL 2020-01-31 15:58:00 Asaf [facility] (NA, K, CL, CO2, GLUCOSE, Medica l Branch BUN, CREATININE, CA) ETHANOL 2020-01-31 15:58:00 Asaf [facility] DIFF CONSULT 2020-01-31 15:58:00 Micaela [facility] CBC WITH DIFF 2020-01-31 15:58:00 Asaf [facility] RETICULOCYTES AUTOMATED 2020-01-31 15:58:00 Pasha Hinojosa [facility] N-TERMINAL PRO-BNP 2020-01-31 15:58:00 Kirstin Ron [facility] LACTIC ACID WHOLE BLOOD 2020-01-31 15:57:00 [facility]in [facility] 2020-01-31 15:48:34 [facility] o f [facility] EKG-12 LEAD 2020-01-31 15:40:40 Kirstin Ron [facility] NOTICE OF PRIVACY 2020-01-31 15:38:09 Doctor Unassigned, No [facility] PRACTICES [facility] CONSENT/REFUSAL FOR 2020-01-31 15:37:54 Doctor Unassigned, No [facility]REATMENT [facility] EXTERNAL PROVIDER RECORDS 2020-01-31 05:01:00 Doctor Unassigned, No [facility] EMERGENCY DEPARTMENT 2020-01-31 05:01:00 Doctor Unassigned, No [facility] DOCUMENTS [facility] HOSPITAL ADM - MISC 2020-01-31 05:01:00 Doctor Unassigned, No [facility] 2020-01-31 05:01:00 Doctor Unassigned, No Uni [facility] CT ABDOMEN PELVIS W 2019-12-18 22:11:19 Meka Hassan [facility] CONTRAST [facility] URINALYSIS 2019-12-18 21:07:00 Meka Hassan [facility] LIPASE 2019-12-18 20:39:00 Meka Hassan [facility] TROPONIN I 2019-12-18 20:39:00 Meka Hassan [facility] HEPATIC FUNCTION PANEL 2019-12-18 20:39:00 Meka Hassan [facility] ([id number]) (ALB,T.PRO,BILI Medical Branch T,BU/BC,ALT,AST,ALK PHOS) BASIC METABOLIC PANEL 2019-12-18 20:39:00 Meka Hassan [facility] (NA, K, CL, CO2, GLUCOSE, Medica l Branch BUN, CREATININE, CA) CBC WITH DIFF 2019-12-18 20:39:00 Meka Hassan [facility] CONSENT/REFUSAL FOR 2019-12-18 20:15:38 Doctor Unassigned, No [facility] DIAGNOSIS AND TREATMENT Name [facility] XR CHEST 1 VW COVID 2019-08-22 01:15:45 Erasmo Grayson [facility] LIPASE 2019-08-22 01:00:00 Erasmo Grayson [facility] TROPONIN I 2019-08-22 01:00:00 Erasmo Grayson [facility] COMP. METABOLIC PANEL 2019-08-22 01:00:00 Erasmo Grayson [facility] ([id number]) [facility] CBC WITH DIFFERENTIAL 2019-08-22 01:00:00 Erasmo Grayson [facility] PROTHROMBIN TIME / INR 2019-08-22 01:00:00 Erasmo Grayson [facility] ACTIVATED PARTIAL 2019-08-22 01:00:00 Erasmo Grayson [facility] THRMPLAS KIMANI [facility] URINALYSIS 2019-08-22 01:00:00 Erasmo Grayson [facility] CORONAVIRUS COVID-19 2019-08-22 01:00:00 Erasmo Grayson [facility] TESTING [facility] EKG-12 LEAD 2019-08-22 00:52:01 Erasmo Grayson [facility] CONSENT/REFUSAL FOR 2019-08-22 00:30:30 Doctor Unassigned, No [facility] DIAGNOSIS AND TREATMENT Name [facility] LIPASE 2019-06-25 22:49:00 Ron [facility] TROPONIN I 2019-06-25 22:49:00 [facility] HEPATIC FUNCTION PANEL 2019-06-25 22:49:[address] [facility] ([id number]) (ALB,T.PRO,BILI Medical Branch T,BU/BC,ALT,AST,ALK PHOS) BASIC METABOLIC PANEL 2019-06-25 22:49:[address] [facility] Kirstin [facility] (NA, K, CL, CO2, GLUCOSE, Medica l Branch BUN, CREATININE, CA) CBC WITH DIFFERENTIAL 2019-06-25 22:49:00 Asaf [facility] EKG-12 LEAD 2019-06-25 22:33:31 Asaf [facility] URINALYSIS 2019-06-25 22:13:00 Singer [facility] LIPASE 2019-06-19 20:30:00 Natalia [facility] TEST, SERUM 2019-06-19 20:30:00 Natalia [facility] HEPATIC FUNCTION PANEL 2019-06-19 20:30:00 Natalia [facility] ([id number]) (ALB,T.PRO,BILI Medical Branch T,BU/BC,ALT,AST,ALK PHOS) BASIC METABOLIC PANEL 2019-06-19 20:30:00 Natalia [facility] (NA, K, CL, CO2, GLUCOSE, Medica l Branch BUN, CREATININE, CA) CBC WITH DIFFERENTIAL 2019-06-19 20:30:00 Natalia [facility] URINALYSIS 2019-06-19 20:30:00 Natalia [facility] CONSENT/REFUSAL FOR 2019-06-19 19:35:06 Doctor Unassigned, No [facility] TREATMENT Name [facility] CT ABDOMEN PELVIS W 2019-05-20 02:03:54 Gary Chavarria [facility] CONTRAST Medical Branch LIPASE 2019-05-20 01:07:00 Singer [facility] COMP. METABOLIC PANEL 2019-05-20 01:07:00 Singer [facility] ([id number]) Medical Nettie CBC WITH DIFFERENTIAL 2019-05-20 01:07:00 Singer [facility] URINALYSIS 2019-05-20 01:07:00 Singer [facility] NOTICE OF PRIVACY 2019-05-20 00:08:29 Doctor Unassigned, [facility] PRACTICES [facility] Branch CONSENT/REFUSAL FOR 2019-05-20 00:08:14 Doctor Unassigned, No [facility] TREATMENT Name Medical Branch CT ANKLE RIGHT WO 2018-12-05 16:22:01 Ector Frank [facility] XR FOOT 3+ VW RIGHT 2018-12-01 19:59:31 Jaki Polanco [facility] XR TIBIA FIBULA 2 VW 2018-12-01 19:59:07 Jaki Polanco [facility] Branch BASIC METABOLIC PANEL 2018-11-16 09:31:00 [facility] (NA, K, CL, CO2, GLUCOSE, [facility] BUN, CREATININE, CA) CBC WITH DIFFERENTIAL 2018-11-16 09:31:00 [facility] ABORH CONFIRMATION 2018-11-16 00:34:00 [facility] 2018-11-16 00:00:00 [facility] URINALYSIS 2018-11-15 23:58:00 [facility] TYPE AND SCREEN 2018-11-15 23:00:00 [facility] TROPONIN I 2018-11-15 21:08:00 [facility] LIPID PANEL ([id number])(TOTAL 2018-11-15 21:08:00 [facility] CHOLESTEROL, [facility] TRIGLYCERIDES, HDL) CT ABDOMEN PELVIS W 2018-11-15 16:32:45 Farshad Ramirez [facility] CONTRAST [facility] HELICOBACTER PYLORI AB, 2018-11-15 15:51:00 [facility]GG [facility] HEPATITIS B SURFACE 2018-11-15 15:51:00 Farshad Ramirez [facility] ANTIBODY Medical Branch HCV ANTIBODY 2018-11-15 15:51:00 Farshad Ramirez [facility] HEPATITIS A VIRUS 2018-11-15 15:51:00 Farshad Ramirez [facility] ANTIBODY IGM [facility] HEPATITIS B CORE ANTIBODY 2018-11-15 15:51:00 Farshad Ramirez [facility] IGM Medical Branch ACETAMINOPHEN 2018-11-15 15:50:00 Farshad Ramirez [facility] XR CHEST 1 VW 2018-11-15 15:08:18 Farshad Ramirez [facility] LIPASE 2018-11-15 14:40:00 Farshad Ramirez [facility] TROPONIN I 2018-11-15 14:40:00 Farshad Ramirez [facility] HEPATIC FUNCTION PANEL 2018-11-15 14:40:00 Farshad Ramirez [facility] ([id number]) (ALB,T.PRO,BILI Medical Branch T,BU/BC,ALT,AST,ALK PHOS) BASIC METABOLIC PANEL 2018-11-15 14:40:00 [facility] (NA, K, CL, CO2, GLUCOSE, Medica l Branch BUN, CREATININE, CA) CBC WITH DIFFERENTIAL 2018-11-15 14:40:00 [facility] GLYCOSYLATED HEMOGLOBIN 2018-11-15 14:40:00 [facility] PROTHROMBIN TIME / INR 2018-11-15 14:40:00 Farshad Ramirez [facility] ACTIVATED PARTIAL 2018-11-15 14:40:00 [facility] N-TERMINAL PRO-BNP 2018-11-15 14:40:00 Farshad Ramirez [facility] EKG-12 LEAD 2018-11-15 14:26:03 Farshad Ramirez [facility] CONSENT/REFUSAL FOR 2018-11-15 14:13:05 Doctor Unassigned, No Un [facility] DIAGNOSIS AND TREATMENT Name Medical Branch Encounters Start End Encounter Admission Attending Care Care Encounter Source Date/Time Date/Time Type Type Clinicians Facility Department ID 2021-02-14 Emergency [facility] [id number] Univers 04:18:26 ity [facility] 2021-02-13 Emergency [facility] [id number] Univers 23:26:14 ity [facility] 2021-02-13 Emergency [facility] [id number] Univers 17:26:50 ity [facility] 2021-02-13 Emergency [facility] [id number] Univers 04:32:53 ity of [facility] 2021-02-13 Emergency [facility] [id number] Univers 03:03:18 ity of [facility] 2021-02-12 Emergency [facility] [id number] Univers 14:48:39 ity of [facility] 2021-02-12 Emergency [facility] [id number] Univers 08:37:59 ity of [facility] 2021-02-12 Outpatient Colette GAMEZ [facility] JARROD [id number] Univers 02:51:20 MOISE ity of [facility] 2021-02-12 Outpatient Colette GAMEZ [facility] JARROD [id number] Univers 02:51:17 MOISE ity of [facility] 2021-02-12 Outpatient R VERA [facility] JARROD [id number] Univers 02:50:49 MOISE ity of [facility] 2021-02-11 Emergency [facility] [id number] Univers 18:57:51 ity of [facility] 2021-02-11 Emergency [facility] [id number] Univers 10:52:36 ity of [facility] 2021-02-10 Emergency [facility] [id number] Univers 23:34:27 ity of [facility] 2021-02-10 Emergency [facility] [id number] Univers 16:03:46 ity of [facility] 2021-02-09 Emergency [facility] [id number] Univers 14:07:13 ity of [facility] 2021-02-09 Emergency [facility] [id number] Univers 13:02:51 ity of [facility] 2021-01-21 Outpatient PENNY, [facility] [id number] [facility] 22:26:45 [facility] 2021-01-21 Inpatient ER NGUYỄN, [facility] Gastro [id number] [facility] 22:24:24 2021-01-21 Outpatient PENNY, SLE Surgery [id number] [facility] 18:10:30 [facility] 2020-08-26 Inpatient ER NGUYỄN, [facility] General Med [id number] [facility] 02:30:00 2022-01-02 2022-01-02 Outpatient Colette WASHBURN [facility] [id number] Univers 10:00:00 10:00:00 VIRA [id number] ity [facility] 2022-01-02 2022-01-02 Outpatient R ADUM, [facility] [id number] Univers 10:00:00 10:00:00 VIRA ity [facility] 2021-02-12 2021-02-12 [facility] [id number] Univers 14:09:00 21:08:00 ROSALINDA itshey [facility] 2021-02-12 2021-02-12 Emergency [facility] [id number] Univers 14:09:00 21:08:00 Rosalinda MARCUM [id number] ity of [place] [id number] [facility] [id number] [place] [id number] Nettie 2021-01-30 2021-01-30 Outpatient AD, [facility] [id number] Univers 10:00:00 10:00:00 VIRA [id number] ity [facility] 2021-01-17 2021-01-18 Emergency [facility] [id number] Univers 21:29:00 01:13:00 Maru Marcum [id number] ity of [place] [id number] [facility] [phone] [facility] 084 Nettie 2021-01-17 2021-01-17 Orders Doctor HAMMER [id number] Univers 00:00:00 00:00:00 Only Unassigned, KATHIE [id number] ity of [place] [employer] [facility] [id number] Archie as [id number] [facility] 009 Nettie 2021-01-07 2021-01-07 [facility] [id number] Univers 11:38:27 23:59:00 Encounter [facility] [id number] ity of [place] [id number] Archie as Balaji?Blea [phone] [place] marroquin [address] [facility] 2021-01-07 2021-01-07 Urgent Consuelo Avendaño [facility] [id number] Univers 11:22:24 11:55:26 [facility] [id number] ity [facility] [id number] Archie as Balaji?Blea [phone] Wi dical kney [address] [facility] 2021-01-07 2021-01-07 Outpatient R [facility] [id number] Univers 11:40:00 11:40:00 [id number] ity [facility] 2021-01-07 2021-01-07 Outpatient R [facility] [id number] Univers 11:40:00 11:40:00 [facility] 2021-01-07 2021-01-07 Letter JAQUELIN [place] [id number] Univers 00:00:00 00:00:00 (Out) Karlene VÁZQUEZ [id number] i [facility] [id number] Archie as [id number] [facility] 019 Nettie 2021-01-02 2021-01-02 Outpatient R [facility] [id number] Univers 00:00:00 00:00:00 VIRA [id number] [facility] 2020-12-30 2020-12-30 Emergency [facility] [id number] Univers 13:14:00 17:53:00 Maru Marcum [id number] ity [facility] [id number] [place] [id number] [facility] 084 Nettie 2020-12-30 2020-12-30 [facility] [id number] Univers 10:00:12 10:49:11 Visit Vira Marcum [id number] ity of [place] [id number] [place] [facility] [phone] Wi dicjarod nal 134 [facility] 2020-12-30 2020-12-30 Outpatient R [facility] [id number] Univers 08:30:00 08:30:00 VIRA [id number] ity [facility] 2020-12-30 2020-12-30 Outpatient R AD, [facility] [id number] Univers 08:30:00 08:30:00 VIRA [facility] 2020-12-23 2020-12-23 [facility] [id number] Univers 15:59:00 23:59:00 Encounter Vira Marcum [id number] ity [facility] [id number] [facility] [id number] [facility] 806 Nettie 2020-12-23 2020-12-23 Outpatient R AD, [facility] [place] [id number] -20 Univers 00:00:00 00:00:00 [facility] [id number] [facility]-23 2020-12-23 Outpatient R AD, [facility] [id number] Univers 00:00:00 00:00:00 VIRA [facility] 2020-12-16 2020-12-16 [facility] 1.2.840.114 [id number] Univers 09:56:42 11:11:19 Visit [facility] 350.1.13.10 [facility] 4.2.7.2.686 [facility] [phone] Wi dical nal 134 [facility] 2020-12-16 2020-12-16 Outpatient R AD, [facility] [id number] -20 Univers 10:00:00 10:00:00 [facility] [id number] [facility] 2020-12-16 2020-12-16 Outpatient R AD, [facility] [id number] Univers 10:00:00 [facility]:00[facility] 2020-12-14 2020-12-14 Outpatient STLMLC [facility] [id number] [facility] Korina linda [facility] 2020-12-05 2020-12-05 [facility] 1.2.840.114 [id number] Univers 14:07:00 18:52:00 Folusho F [place] 350.1.13.10 ity of [place] 4.2.7.2.686 [facility] [id number] [facility] 084 Branch 2020-11-10 2020-11-10 Outpatient STLMLC STLC [id number] [facility] 2020-10-11 2020-10-12 Emergency Farshad Ramirez 1.2.840. 114 [id number] 08:30:00 20:40:00 Kadi Duggan 350.1.13.10 [facility] 4.2.7.2.68 [id number] 09 2020-10-11 2020-10-12 Emergency Farshad Ramirez 1.2.840. 114 [id number] [facility] 08:30:00 20:40:00 Kadi Duggan 350.1.13.10 ity of [facility] 4.2.7.2.[address] [place] [address] [phone] [facility] 095 Branch 2020-10-04 2020-10-04 Emergency [facility] 1.2.952.973 [id number] 17:45:00 20:23:00 Rosanna R [place] 350.1.13.10 [place] 4.2.7.2.686 [place] [id number] 08 2020-10-04 2020-10-04 Emergency [facility] 1.2.035.064 [id number] [facility] 17:45:00 20:23:00 Rosanna R [place] 350.1.13.10 i ty of [place] 4.2.7.2.686 [facility] [id number] [facility] 084 Branch 2020-09-30 2020-09-30 Outpatient STLMLC STLC [id number] [facility] 2020-09-29 2020-09-29 Outpatient STLMLC STLC [id number] [facility] 2020-09-19 2020-09-[facility] [id number] [facility] 2020-09-16 2020-09-16 [facility] [id number] [facility] 2020-09-02 2020-09-02 [facility] [id number] [facility] 2020-08-05 2020-08-05 Emergency [facility] 1.2.840.114 [id number] 08:16:00 09:12:00 Maru Marcum 350.1.13.10 [place] 4.2.7.2.686 [place] [id number] [facility] 2020-08-05 2020-08-05 [facility] 1.2.840.114 [id number] [facility] 08:16:00 09:12:00 Maru Marcum 350.1.13.10 ity of [place] 4.2.7.2.686 [place] [id number] [address] 2020-07-19 2020-07-19 Outpatient Colette MARSH [facility] [id number] Univers 11:20:00 11:20:00 SULAIMAN ity of [facility] 2020-07-18 2020-07-18 [facility] 1.2.840.114 [id number] 06:28:00 08:29:00 Encounter Moise Marcum 350.1.13.10 [place] 4.2.7.2.686 Surgical [id number] [place] [address] 2020-07-18 2020-07-18 [facility] 1.2.840.114 [id number] [facility] 06:28:00 08:29:00 Encounter Moise [place]ston 350.1.13.10 ity of [place] 4.2.7.2.686 [place] Surgical [id number] [address] 2020-07-18 2020-07-[address] [facility] 1.2.840.114 [id number] 07:30:00 08:00:00 [place] 350.1.13.10 [place] 4.2.7.2.686 Surgical [phone] [place] 020 2020-07-18 2020-07-18 Surgery [facility] 1.2.979.239 [id number] Univers 07:30:00 08:00:00 Moise Goodman Chao 350.1.13.10 ity [facility] 4.2.7.2.686 [facility] [id number] [facility] 020 Branch 2020-07-15 2020-07-15 Outpatient R [facility] [id number] -[id number] Univers 08:00:00 08:00:00 [id number] [facility] 2020-07-15 2020-07-15 Outpatient [facility] [id number] Univers 08:00:00 08:00:00 MOISE [facility] 2020-07-11 2020-07-11 Outpatient R [facility] [id number] Univers 12:00:00 12:00:00 [facility] 2020-07-08 2020-07-08 Outpatient R [facility] [id number] Univers 10:40:00 10:40:00 SULAIMAN [facility] 2020-07-07 2020-07-07 Emergency J[address] Polanco [facility] 1.2.840.114 [id number] 18:47:00 22:05:00 Sydnie Marcum 350.1.13.10 [place] 4.2.7.2.686 [place] [id number] [facility] 2020-07-07 2020-07-07 Emergency Jaki Polanco [facility] 1.2.840.114 [id number] Univers 18:47:00 22:05:00 Sydnie Marcum 350.1.13.10 i ty of [place] 4.2.7.2.686 [facility] [place] [id number] [address] 2020-07-07 2020-07-07 Orders Doctor HAMMER 1.2.840.114 [id number] 00:00:00 00:00:00 Only Unassigned, KATHIE 350.1.13.10 [facility] 4.2.7.2.686 [id number] 009 2020-07-07 2020-07-07 Orders Doctor JAQUELIN 1.2.840.114 [id number] Univers 00:00:00 00:00:00 Only Unassigned, KATHIE 350.1.13.10 ity of [facility] 4.2.7.2.686 Archie as [id number] [place] [address] Branch 2020-07-07 2020-07-07 Outpatient STLMLC STLMLC [id number] [facility] 00:00:00 00:00:00 [facility] 2020-07-04 2020-07-04 [facility] 1.2.840.114 [id number] 06:30:00 08:44:00 Encounter Moise Maxine [place] 350.1.13.10 [place] 4.2.7.2.686 Surgical [id number] [place] [address] 2020-07-04 2020-07-04 [facility] 1.2.840.114 [id number] [facility] 06:30:00 08:44:00 Encounter Moise Maxine [place] 350.1.13.10 ity of [place] 4.2.7.2.[place] [id number] [address] 2020-07-04 2020-07-04 Orders Doctor JAQUELIN 1.2.840.114 [id number] 00:00:00 00:00:00 Only Unassigned, KATHIE 350.1.13.10 [facility] 4.2.7.2.686 [id number] 009 2020-07-04 2020-07-04 Orders Doctor JAQUELIN 1.2.840.114 [id number] Univers 00:00:00 00:00:00 Only Unassigned, KATHIE 350.1.13.10 ity of [facility] 4.2.7.2.686 Archie as [id number] [facility] 009 Branch 2020-07-01 2020-07-01 Laboratory Only, Adc [facility] 1.2.840.114 [id number] 09:02:10 09:17:10 Only Test [place] 350.1.13.10 [place] 4.2.7.2.686 [place] [id number] 353 2020-07-01 2020-07-01 Laboratory Only, Adc Test [facility] 1.2.840. 114 [id number] Univers 09:02:10 09:17:10 Only Vera, Moise [place] 350.1.13.1 0 ity [facility] 4.2.7.2.686 [facility] [id number] [address] 2020-07-01 2020-07-01 Outpatient R [facility] [id number] -20 Univers 08:30:00 08:30:00 [id number] ity [facility] 2020-07-01 2020-07-01 Outpatient R [facility] [id number] Univers 08:30:00 08:30:00 [facility] 2020-07-01 2020-07-01 Orders Doctor JAQUELIN 1.2.840.114 [id number] 00:00:00 00:00:00 Only Unassigned, KATHIE 350.1.13.10 [facility] [place] [facility] 4.2.7.2.686 [id number] 009 2020-07-01 2020-07-01 Orders Doctor JAQUELIN 1.2.840.114 [id number] Univers 00:00:00 00:00:00 Only Unassigned, KATHIE 350.1.13.10 ity [facility] 4.2.7.2.686 Archie [id number] [address] 2020-06-30 2020-06-30 [facility] [id number] [facility] 2020-06-22 2020-06-22 [facility] [id number] [facility] 2020-06-20 2020-06-20 [facility] 1.2.840.114 [id number] 06:29:00 08:58:00 Encounter Moise Marcum 350.1.13.10 [place] 4.2.7.2.686 Surgical [id number] [place] 07 2020-06-20 2020-06-20 [facility] 1.2.840.114 [id number] [facility] 06:29:00 08:58:00 Encounter Moise [place]ston 350.1.13.10 ity of [place] 4.2.7.2.686 [place] [id number] [facility] 071 Branch 2020-06-20 2020-06-20 Anesthesia [address] Arana [facility] 1.2.840.11 [id number] 08:03:00 08:12:00 Event Dominguez Seo Chao 350.1.13.10 [place] 4.2.7.2.686 Surgical [id number] [place] 020 2020-06-20 2020-06-20 Anest[facility] 1.2.840.11 [id number] [facility] 08:03:00 08:12:00 Event Dominguez Seo Chao 350.1.13.10 ity of [place] 4.2.7.2.686 [place] Surgical [id number] [facility] 020 Branch 2020-06-20 2020-06-20 Orders Doctor JAQUELIN 1.2.840.114 [id number] 00:00:00 00:00:00 Only Unassigned, KATHIE 350.1.13.10 [facility] 4.2.7.2.686 [id number] 009 2020-06-20 2020-06-20 Orders Doctor JAQUELIN 1.2.840.114 [id number] Univers 00:00:00 00:00:00 Only Unassigned, KATHIE 350.1.13.10 ity of [facility] 4.2.7.2.686 Arhcie as [phone] [facility] 009 Nettie 2020-06-19 2020-06-19 Outpatient [facility] [id number] Univers 08:15:00 08:15:00 ity of [facility] 2020-06-17 2020-06-17 Gis Web Developer Pob, [facility] 1.2.840.114 [id number] 15:27:53 15:42:53 Visit Lab Main [place] 350.1.13.10 [place] 4.2.7.2.686 Professio [id number] [address] 2020-06-17 2020-06-17 Gis Web Developer Elizbaeth, [facility] Lab Main [facility] 1.2.8 40.114 [id number] [facility] 15:27:53 15:42:53 Visit Moise Gamez Chao 350.1.13.1 0 ity of [place] 4.2.7.2.686 [place] Profess[place] [phone] Wi dical [address] 2020-06-17 2020-06-17 Laboratory Only, [facility] 1.2.840.114 8 [id number] 15:26:19 15:41:19 Only Test [place] 350.1.13.10 [place] 4.2.7.2.686 [place] [id number] [facility] 2020-06-17 2020-06-17 Laboratory Only, [facility] Test [facility] 1.2.840. 114 [id number] [facility] 15:26:19 15:41:19 Only Vera, Moise Maxine Chao 350.1.13.1 0 ity of [place] 4.2.7.2.686 [place] [phone] [address] 2020-06-17 2020-06-17 Outpatient R VERA [facility] [id number] Univers 12:30:00 12:30:00 MOISE ity [facility] 2020-06-17 2020-06-17 Outpatient R [facility] [id number] -[id number] Univers 12:15:00 12:15:00 [id number] ity [facility] 2020-06-17 2020-06-17 Orders Doctor HAMMER 1.2.840.114 [id number] 00:00:00 00:00:00 Only Unassigned, KATHIE 350.1.13.10 [facility] 4.2.7.2.686 [id number] 009 2020-06-17 2020-06-17 Orders Doctor HAMMER 1.2.840.114 [id number] Univers 00:00:00 00:00:00 Only Unassigned, KATHIE 350.1.13.10 ity of [facility] 4.2.7.2.686 Archie as [phone] [facility] 009 Nettie 2020-05-22 2020-05-22 Outpatient R SALMA, [facility] [id number] Univers 08:50:00 08:50:00 SULAIMAN ity [facility] 2020-05-06 2020-05-[address] [facility], [facility] 1.2.840.114 [id number] 15:21:00 18:38:00 Kirstin [place]ston 350.1.13.10 [place] 4.2.7.2.686 [place] [id number] [facility] 2020-05-06 2020-05-[address] [facility], [facility] 1.2.840.114 [id number] Univers 15:21:00 18:38:00 Kirstin [place] 350.1.13.10 i ty of [place] 4.2.7.2.[address] [facility] [phone] [facility] 084 Nettie 2020-05-04 2020-05-04 Outpatient R [facility] [id number] -[id number] Univers 09:20:00 09:20:00 [id number] ity [facility] 2020-05-04 2020-05-04 Outpatient R [facility] [id number] Univers 09:20:00 09:20:00 ity [facility] 2020-05-04 2020-05-04 Laboratory Lab, [facility] 1..840.114 81 [id number] 08:54:13 09:14:13 Only Fam Pob I Health 350.1.13.10 [place] 4.2.7.2.686 Professio [id number] nal [address] 2020-05-04 2020-05-04 Laboratory Lab, [facility] Fam Pob I [facility] 1.2. 840.114 [id number] Univers 08:54:13 09:14:13 Only Anene, [facility] 350.1.13.10 ity of [place] 4.2.7.2.686 Archie as Professio [phone] Wi dical nal 044 [address] 2020-04-14 2020-04-14 Letter Jeannie Slade JAQUELIN 1.2.840.114 [id number] 00:00:00 00:00:00 (Out) KATHIE 350.1.13.10 HOSPITAL 4.2.7.2.686 [id number] 043 2020-04-14 2020-04-14 Letter Jeannie Slade JAQUELIN 1.2.840.114 [id number] [facility] 00:00:00 00:00:00 (Out) KATHIE 350.1.13.10 it y of HOSPITAL 4.2.7.2.686 Archie as [id number] [address] 2020-03-25 2020-03-26 [facility] 1.2.473.495 [id number] 21:13:00 02:01:00 Jessetanner Marcum 350.1.13.10 [place] 4.2.7.2.686 [place] [id number] [facility] 2020-03-25 2020-03-26 [facility] 1.2.054.911 [id number] [facility] 21:13:00 02:01:00 Erasmo Goodman Chao 350.1.13.10 ity of [place] 4.2.7.2.686 [facility] [id number] [facility] 084 Nettie 2020-03-18 2020-03-18 Orders Doctor JAQUELIN 1.2.840.114 [id number] 00:00:00 00:00:00 Only Unassigned, KATHIE 350.1.13.10 [facility] [place] [facility] 4.2.7.2.686 [id number] 009 2020-03-18 2020-03-18 Orders Doctor JAQUELIN 1.2.840.114 [id number] Univers 00:00:00 00:00:00 Only Unassigned, KATHIE 350.1.13.10 ity of [facility] 4.2.7.2.686 Archie as [id number] [facility] 009 Nettie 2020-03-08 2020-03-08 Outpatient STLMLC STLMLC [id number] [facility] St 00:00:00 00:00:00 [facility] 2020-03-07 2020-03-07 Outpatient [facility] [id number] [facility] 2020-01-31 2020-02-08 [facility] [place] [facility] 1.2.840.1 14 [id number] 10:39:00 16:12:00 Encounter [facility] 350.1.13.10 Pasha Hinojosa 4.2.7.2.686 [facility] [phone] [place] [address] ([facility]) 2020-01-31 2020-02-08 [facility]Maria [facility] 1.2.840.1 14 [id number] [facility] 10:39:00 16:12:00 Encounter [facility] 350.1.13.10 ity Pasha Hinojosa [place] 4.2.7.2.686 [facility] [phone] [address] ([facility]) 2020-01-11 2020-01-11 Outpatient [facility] [id number] [facility] St 00:00:00 00:00:00 [facility] 2020-01-06 2020-01-06 Outpatient [facility] [id number] [facility] 2019-12-18 2019-12-18 Emergency [facility] 1.2.812.516 [id number] 15:26:00 19:16:00 Meka Marcum 350.1.13.10 [place] 4.2.7.2.6 [place] [id number] [facility] 2019-12-18 2019-12-18 Emergency [facility] 1.2.994.539 [id number] [facility] 15:26:00 19:16:00 Meka Marcum 350.1.13.10 ity of [place] 4.2.7.2.686 [facility] [id number] [address] 2019-10-06 2019-10-06 [facility] [id number] 10:40:00 10:40:00 t [facility] ent [facility] 2019-09-17 2019-09-17 [facility] [id number] 10:24:00 10:24:00 [facility] ent [facility] 2019-08-21 2019-08-21 Emergency Yarica, [facility] 1.2.664.517 [id number] 19:42:19 23:51:00 Erasmo Marcum 350.1.13.10 [place] 4.2.7.2.686 [place] [id number] 2019-08-21 2019-08-21 Emergency X YARIOR, [facility] ERT [id number] Univers 19:42:19 23:51:00 ERASMO li [facility] 2019-08-21 2019-08-21 Emergency [facility] 1.2.054.515 [id number] [facility] 19:42:19 23:51:00 Erasmo Marcum 350.1.13.10 ity [facility] 4.2.7.2.[address] [place] [id number] 2019-07-14 2019-07-14 [facility] [id number] 15:00:00 15:00:00 [facility] 2019-06-25 2019-06-[address] [facility], [facility] 1.2.840.114 [id number] 16:52:11 20:04:00 Kirstin Marcum 350.1.13.10 [place] 4.2.7.2.6 [place] [id number] [facility] 2019-06-25 2019-06-25 Emergency Ron, [facility] 1.2.840.114 [id number] [facility] 16:52:11 20:04:00 Kirstin Marcum 350.1.13.10 i ty of [place] 4.2.7.2.[address] [place] [id number] 2019-06-19 2019-06-19 Emergency Kaale, [facility] 1.2.592.057 [id number] 2000 13:58:11 19:09:00 Rosalinda Marcum 350.1.13.10 [place] 4.2.7.2.686 [place] [id number] [facility] 2019-06-19 2019-06-[address] [facility] 1.2.966.628 [id number] 2001 [facility] 13:58:11 19:09:00 Rosalinda Marcum 350.1.13.10 ity of [place] 4.2.7.2.686 [facility] [id number] [address] 2019-06-19 2019-06-19 Orders Doctor JAQUELIN 1.2.840.114 [id number] 00:00:00 00:00:00 Only Unassigned, KATHIE 350.1.13.10 [facility] [place] [facility] 4.2.7.2.686 [id number] [facility][note 3] 2019-06-19 2019-06-19 Orders Doctor JAQUELIN 1.2.840.114 [id number] Univers 00:00:00 00:00:00 Only Unassigned, KATHIE 350.1.13.10 ity of [place] [facility] 4.2.7.2.686 [facility] [id number] [address] 2019-05-19 2019-05-19 [facility] 1.2.083.125 [id number] 18:29:04 21:26:00 Gary Chao 350.1.13.10 [place] 4.2.7.2.686 [place] [id number] [facility] 2019-05-19 2019-05-19 Emergency X [facility] ERT [id number] Univers 18:29:04 21:26:00 GARY li [facility] 2019-05-19 2019-05-19 [facility] 1.2.792.925 [id number] Univers 18:29:04 21:26:00 Gary Marcum 350.1.13.10 i ty of [place] 4.2.7.2.686 [facility] [id number] [address] 2019-03-02 2019-03-02 [facility] [id number] 10:40:00 10:40:00 [facility] Medicine Outpati ent Clinics 2019-02-04 2019-02-04 Outpatient Brazbenji [facility]raz[facility] [id number] 10:55:00 10:55:00 t [facility] 2018-12-24 2018-12-24 [facility]phone [facility] 1.2.840.114 [id number] 00:00:00 00:00:00 Steven Linda [employer] 350.1.13.10 Surgical 4.2.7.2.686 Specialti [phone] es 198 [place] 2018-12-24 2018-12-24 [facility]phone [facility] 1.2.840.114 [id number] [facility] 00:00:00 00:00:00 Steven Chen 350.1.13.10 it y of Surgical 4.2.7.2.686 Archie as Specialti [phone] Wi dical es [address] [facility] 2018-12-18 2018-12-18 [facility] 1.2.840.114 [id number] [facility] 08:54:57 23:59:00 Encounter Steven Chen 350.1.13.10 ity of Surgical 4.2.7.2.686 Archie as Specialti [id number] Wi dical es 809 [facility] 2018-12-18 2018-12-18 Office [facility] 1.2.209.809 [id number] 3436 [facility] 08:37:16 09:02:40 Visit Steven Chen 350.1.13.10 it y of Surgical 4.2.7.2.686 Archie as Specialti [id number] Wi dical es [address] [facility] 2018-12-08 2018-12-08 Office [facility] 1.2.465.527 [id number] Univers 15:02:42 15:51:02 Visit Steven Linda [employer] 350.1.13.10 it y of Surgical 4.2.7.2.686 Archie as Specialti [phone] Wi dical es [address] [facility] 2018-12-05 2018-12-05 [facility] 1.2.840.114 [id number] [facility] 09:47:09 23:59:00 Encounter Ector Goodman [place] 350.1.13.10 ity of [place] 4.2.7.2.686 [place] [phone] [facility] [address] 2018-12-05 2018-12-[address] [facility] 1.2.114.898 [id number] [employer] 07:55:02 09:26:33 Visit Steven Linda [facility] [id number] it y of Surgical [id number] Archie as Specialti [phone] Wi dical 198 [facility] 2018-12-01 2018-12-01 Emergency Jaki Polanco [facility] [id number] Univers 14:24:08 18:38:00 [place]nie [place] [id number] i ty [place] 4[place] [phone] [facility] [address] 2018-11-18 2018-11-18 Transition Luis Pengliza [id number] Univers 00:00:00 00:00:00 of Care Pricilla Ascencio [id number] it y [place] 4[place]2.[place] [phone] [facility] [address] 2018-11-15 2018-11-17 Emergency James Farshad [place] 1.2.840. [id number] Univers 09:29:33 16:00:00 Sundar Brooke [id number] ity of [facility] 4.2.7.2.686 [place] [phone] [facility] [address] 2018-10-07 2018-10-07 [facility] [id number] [facility] 11:00:00 11:00:00 [place] [employer] [address] [facility] Medicine Outpati ent Clinics 2018-07-28 2018-07-28 [facility] [id number] [facility] 09:57:00 09:57:00 [place] [employer] [facility] - [facility] Outpati [facility] Clinics 2018-07-25 2018-07-25 [facility] [id number] [facility] [address] 14:40:00 14:40:00 [place] [employer] [facility] Medicine Outpati [facility] Results Test Description Test Time Test Comments Results Result Comments Source COMP. METABOLIC PANEL ([id number]) 2021-02-12 20:12:57 Test Item Value Reference Range Interpretation Comme nts NA (test code = 3243759519) 137 mmol/L 135-145 K (test code = 9094279070) 4.7 mmol/L 3.5-5.0 CL (test code = 8224586027) 106 mmol/L 98-108 CO2 TOTAL (test code = 6942909315) 23 mmol/L 23-31 AGAP (test code = 2121282337) 2-16 BUN (test code = 0987384197) 16 mg/dL 7-23 GLUCOSE (test code = 6045834357) 116 mg/dL 70-110 H CREATININE (test code = 0.65 mg/dL 0.50-1.04 7799036283) TOTAL BILI (test code = 1.6 mg/dL 0.1-1.1 H 4159669296) CALCIUM (test code = 2035823911) 9.6 mg/dL 8.6-10.6 T PROTEIN (test code = 0017865492) 8.3 g/dL 6.3-8.2 H ALBUMIN (test code = 5335437787) 4.5 g/dL 3.5-5.0 ALK PHOS (test code = 0713423971) 650 U/L 34-122 H ALTv (test code = 1742-6) 146 U/L 5-35 H AST(SGOT) (test code = 7774960698) 174 U/L 13-40 H eGFR (test code = 4057113590) mL/min/1.73m2 KIM (test code = KIM) Association of Glomerular Filtration Rate (GFR) and Staging of Kidney Disease* + +-------- + ------+| GFR (mL/min/1.73 m2) ?| With Kidney Damage ?| ?Without Kidney Damage+ +-- + +| ?>90 ?| ?Stage one ?| ? Normal ?+ +------- + -------+| ?60-89 ?| ?Stage two ?| ? Decreased GFR ? + +-------- + ------+| ?30-59 ?| ?Stage three ?| ? Stage three ? + +-------- + ------+| ?15-29 ?| ?Stage four ? | ? Stage four ?+ +------- + -------+| ?<15 (or dialysis) ? ?| ?Stage five ? | ? Stage five ?+ +------- + -------+ *Each stage assumes the associated GFR level has been in effect for at least three months. ?Stages 1 to 5, with or without kidney disease, indicate chronic kidney disease. Notes: Determination of stages one and two (with eGFR >59mL/min/1.73 m2) requires estimation of kidney damage for at least three months as defined by structural or functional abnormalities of the kidney, manifested by either:Pathological abnormalities or Markers of kidney damage (including abnormalities in the composition of the blood or urine or abnormalities in imaging tests). Lab Interpretation (test code = Abnormal 57701-6) [facility] Test Item Value Reference Range Interpretation Comments LIPASE (test code = 3777625335) 86 U/L 0-220 Lab Interpretation (test code = Normal 67549-2) [facility] WITH [id number] 20:02:15 Test Item Value Reference Range Interpretation Comments WBC (test code = See_Comment [Automated 6690-2) message] The sy stem which generated this result transmitted reference range : 4.30 - 11.10 10*3/?L. The reference range was not used to interpret this result as normal/abnormal . RBC (test code = See_Comment L [Automated 919-8) message] The sy stem which generated this result transmitted reference range : 3.93 - 5.25 10*6/?L. The reference range was not used to interpret this result as normal/abnormal . HGB (test code = 11.2 g/dL 11.6-15.0 L 718-7) HCT (test code = 34.1 % 35.7-45.2 L 4544-3) MCV (test code = 91.4 fL 80.6-95.5 787-2) MCH (test code = 30.0 pg 25.9-32.8 785-6) MCHC (test code = 32.8 g/dL 31.6-35.1 786-4) RDW-SD (test code = 46.4 fL 39.0-49.9 30889-2) RDW-CV (test code = 13.8 % 12.0-15.5 788-0) PLT (test code = See_Comment [Automated 777-3) message] The sy stem which generated this result transmitted reference range : 166 - 358 10*3/ ?L. The reference r luca was not used to interpret this result as normal/abnormal . MPV (test code = 9.8 fL 9.5-12.9 53193-2) NRBC/100 WBC (test See_Comment [Automat ed code = 4136458604) message] The system which generated this result transmitted reference range : 0.0 - 10.0 /100 WBCs. The refer ence range was not u sed to interpret th is result as normal/abnormal . NRBC x10^3 (test code <0.01 See_Comment [Auto mated = 3145337415) message] The s ystem which generated this result transmitted reference range : 10*3/?L. The reference range was not used to interpret this result as normal/abnormal . GRAN MAT (NEUT) % 69.4 % (test code = 770-8) IMM GRAN % (test code 0.40 % = 2387191634) LYMPH % (test code = 20.4 % 736-9) MONO % (test code = 7.2 % 5905-5) EOS % (test code = 2.0 % 713-8) BASO % (test code = 0.6 % 706-2) GRAN MAT x10^3(ANC) 3.77 10*3/uL 1.88-7.09 (test code = 8023027752) IMM GRAN x10^3 (test <0.03 0.00-0.06 code = 4344377833) LYMPH x10^3 (test code 1.11 10*3/uL 1.32-3.29 L = 731-0) MONO x10^3 (test code 0.39 10*3/uL 0.33-0.92 = 742-7) EOS x10^3 (test code = 0.11 10*3/uL 0.03-0.39 711-2) BASO x10^3 (test code 0.03 10*3/uL 0.01-0.07 = 704-7) Lab Interpretation Abnormal (test code = 22123-9) [facility]. METABOLIC PANEL ([id number])2021-01-18 04:36:17 Test Item Value Reference Range Interpretation Comments NA (test code = 137 mmol/L 135-145 4087854786) K (test code = 4.2 mmol/L 3.5-5.0 1982450478) CL (test code = 103 mmol/L 98-108 5712140936) CO2 TOTAL (test code = 27 mmol/L 23-31 9859405275) AGAP (test code = 2-16 9239830904) BUN (test code = 13 mg/dL 7-23 0093736104) GLUCOSE (test code = 100 mg/dL 70-110 6454050359) CREATININE (test code = 0.73 mg/dL 0.50-1.04 7415244207) TOTAL BILI (test code = 1.4 mg/dL 0.1-1.1 H 0562876830) CALCIUM (test code = 9.1 mg/dL 8.6-10.6 2511026851) T PROTEIN (test code = 7.2 g/dL 6.3-8.2 1508754638) ALBUMIN (test code = 4.0 g/dL 3.5-5.0 8741287252) ALK PHOS (test code = 585 U/L 34-122 H 1669543961) ALTv (test code = 78 U/L 5-35 H 1742-6) AST(SGOT) (test code = 73 U/L 13-40 H 8696013761) eGFR (test code = mL/min/1.73m2 2613378961) KIM (test code = KIM) Association of Glomerular Filtration Rate (GFR) and Staging of Kidney Disease* + --+ --+ ------+| GFR (mL/min/1.73 m2) ?| With Kidney Damage ?| ?Without Kidney Damage+ --------+ --------+ +| ?>90 ?| ?Stage one ?| ? Normal ?+ ---+ ---+ -------+| ?60-89 ?| ?Stage two ?| ? Decreased GFR ? + --+ --+ ------+| ?30-59 ?| ?Stage three ?| ? Stage three ? + --+ --+ ------+| ?15-29 ?| ?Stage four ? | ? Stage four ?+ ---+ ---+ -------+| ?<15 (or dialysis) ? ?| ?Stage five ? | ? Stage five ?+ ---+ ---+ -------+ *Each stage assumes the associated GFR level has been in effect for at least three months. ?Stages 1 to 5, with or without kidney disease, indicate chronic kidney disease. Notes: Determination of stages one and two (with eGFR >59mL/min/1.73 m2) requires estimation of kidney damage for at least three months as defined by structural or functional abnormalities of the kidney, manifested by either:Pathological abnormalities or Markers of kidney damage (including abnormalities in the composition of the blood or urine or abnormalities in imaging tests). Lab Interpretation Abnormal (test code = 06088-2) [facility]02[facility]39 Test Item Value Reference Range Interpretation Comments LIPASE (test code = 2350043423) 114 U/L 0-220 Lab Interpretation (test code = Normal 06490-4) [facility] WITH [id number] 03:49:11 Test Item Value Reference Range Interpretation Comments WBC (test code = See_Comment [Automated 2590-2) message] The sy stem which generated this result transmitted reference range : 4.30 - 11.10 10*3/?L. The reference range was not used to interpret this result as normal/abnormal . RBC (test code = See_Comment L [Automated 452-8) message] The sy stem which generated this result transmitted reference range : 3.93 - 5.25 10*6/?L. The reference range was not used to interpret this result as normal/abnormal . HGB (test code = 10.8 g/dL 11.6-15.0 L 718-7) HCT (test code = 34.0 % 35.7-45.2 L 4544-3) MCV (test code = 92.6 fL 80.6-95.5 787-2) MCH (test code = 29.4 pg 25.9-32.8 785-6) MCHC (test code = 31.8 g/dL 31.6-35.1 786-4) RDW-SD (test code = 50.6 fL 39.0-49.9 H 43857-3) RDW-CV (test code = 14.8 % 12.0-15.5 788-0) PLT (test code = See_Comment [Automated 777-3) message] The sy stem which generated this result transmitted reference range : 166 - 358 10*3/ ?L. The reference r luca was not used to interpret this result as normal/abnormal . MPV (test code = 10.7 fL 9.5-12.9 99733-5) NRBC/100 WBC (test See_Comment [Automat ed code = 4170736513) message] The system which generated this result transmitted reference range : 0.0 - 10.0 /100 WBCs. The refer ence range was not u sed to interpret th is result as normal/abnormal . NRBC x10^3 (test code <0.01 See_Comment [Auto mated = 0198844460) message] The s ystem which generated this result transmitted reference range : 10*3/?L. The reference range was not used to interpret this result as normal/abnormal . GRAN MAT (NEUT) % 66.1 % (test code = 770-8) IMM GRAN % (test code 0.20 % = 4809014262) LYMPH % (test code = 23.5 % 736-9) MONO % (test code = 8.1 % 5905-5) EOS % (test code = 1.7 % 713-8) BASO % (test code = 0.4 % 706-2) GRAN MAT x10^3(ANC) 3.49 10*3/uL 1.88-7.09 (test code = 1013055199) IMM GRAN x10^3 (test <0.03 0.00-0.06 code = 5821970522) LYMPH x10^3 (test code 1.24 10*3/uL 1.32-3.29 L = 731-0) MONO x10^3 (test code 0.43 10*3/uL 0.33-0.92 = 742-7) EOS x10^3 (test code = 0.09 10*3/uL 0.03-0.39 711-2) BASO x10^3 (test code <0.03 0.01-0.07 = 704-7) Lab Interpretation Abnormal (test code = 00890-4) [facility]71632[facility] (ALB,T.PRO,BILI T,BU/BC,ALT,AST,ALK PHOS)2020-12-30 18:48:24 Test Item Value Reference Range Interpretation Comments TOTAL BILI (test code = 4085676616) 2.4 mg/dL 0.1-1.1 H BILI UNCON (test code = 8032458061) 0.5 mg/dL 0.1-1.1 BILI CONJ (test code = 3337494313) 0.0 mg/dL 0.0-0.3 T PROTEIN (test code = 5445394366) 9.8 g/dL 6.3-8.2 H ALBUMIN (test code = 6718739019) 4.9 g/dL 3.5-5.0 ALK PHOS (test code = 0014298529) 1181 U/L 34-122 H ALTv (test code = 1742-6) 271 U/L 5-35 H AST(SGOT) (test code = 0926660994) 192 U/L 13-40 H Lab Interpretation (test code = Abnormal 95179-7) [facility]47829[facility] (ALB,T.PRO,BILI T,BU/BC,ALT,AST,ALK PHOS)2020-12-30 18:48:24 Test Item Value Reference Range Interpretation Comments TOTAL BILI (test code = 1670529139) 2.4 mg/dL 0.1-1.1 H BILI UNCON (test code = 6789196032) 0.5 mg/dL 0.1-1.1 BILI CONJ (test code = 0335554163) 0.0 mg/dL 0.0-0.3 T PROTEIN (test code = 7491018991) 9.8 g/dL 6.3-8.2 H ALBUMIN (test code = 3802678796) 4.9 g/dL 3.5-5.0 ALK PHOS (test code = 4923570128) 1181 U/L 34-122 H ALTv (test code = 1742-6) 271 U/L 5-35 H AST(SGOT) (test code = 4831196167) 192 U/L 13-40 H Lab Interpretation (test code = Abnormal 72666-4) [facility] METABOLIC PANEL (NA, K, CL, CO2, GLUCOSE, BUN, CREATININE, CA)2020-12-30 18:48:02 Test Item Value Reference Range Interpretation Comments NA (test code = 138 mmol/L 135-145 9544601519) K (test code = 4.7 mmol/L 3.5-5.0 1460892738) CL (test code = 106 mmol/L 98-108 8837320323) CO2 TOTAL (test code = 20 mmol/L 23-31 L 5453068407) AGAP (test code = 2-16 9250051062) BUN (test code = 19 mg/dL 7-23 2351844343) GLUCOSE (test code = 134 mg/dL 70-110 H 1653304046) CREATININE (test code = 0.62 mg/dL 0.50-1.04 5296586333) CALCIUM (test code = 10.1 mg/dL 8.6-10.6 3307550489) eGFR (test code = mL/min/1.73m2 4677594997) KIM (test code = KIM) Association of Glomerular Filtration Rate (GFR) and Staging of Kidney Disease* + --+ --+ ------+| GFR (mL/min/1.73 m2) ?| With Kidney Damage ?| ?Without Kidney Damage+ --------+ --------+ +| ?>90 ?| ?Stage one ?| ? Normal ?+ ---+ ---+ -------+| ?60-89 ?| ?Stage two ?| ? Decreased GFR ? + --+ --+ ------+| ?30-59 ?| ?Stage three ?| ? Stage three ? + --+ --+ ------+| ?15-29 ?| ?Stage four ? | ? Stage four ?+ ---+ ---+ -------+| ?<15 (or dialysis) ? ?| ?Stage five ? | ? Stage five ?+ ---+ ---+ -------+ *Each stage assumes the associated GFR level has been in effect for at least three months. ?Stages 1 to 5, with or without kidney disease, indicate chronic kidney disease. Notes: Determination of stages one and two (with eGFR >59mL/min/1.73 m2) requires estimation of kidney damage for at least three months as defined by structural or functional abnormalities of the kidney, manifested by either:Pathological abnormalities or Markers of kidney damage (including abnormalities in the composition of the blood or urine or abnormalities in imaging tests). Lab Interpretation Abnormal (test code = 04604-3) [facility] 18:48:02 Test Item Value Reference Range Interpretation Comments LIPASE (test code = 8761086585) 292 U/L 0-220 H Lab Interpretation (test code = Abnormal 11505-1) [facility] (NA, K, CL, CO2, GLUCOSE, BUN, CREATININE, CA)2020-12-30 18:48:02 Test Item Value Reference Range Interpretation Comments NA (test code = 138 mmol/L 135-145 5043650978) K (test code = 4.7 mmol/L 3.5-5.0 6808588645) CL (test code = 106 mmol/L 98-108 7073333924) CO2 TOTAL (test code = 20 mmol/L 23-31 L 1582867795) AGAP (test code = 2-16 2367384100) BUN (test code = 19 mg/dL 7-23 8004439437) GLUCOSE (test code = 134 mg/dL 70-110 H 3620165968) CREATININE (test code = 0.62 mg/dL 0.50-1.04 0110670441) CALCIUM (test code = 10.1 mg/dL 8.6-10.6 7336511441) eGFR (test code = mL/min/1.73m2 0964357381) KIM (test code = KIM) Association of Glomerular Filtration Rate (GFR) and Staging of Kidney Disease* + --+ --+ ------+| GFR (mL/min/1.73 m2) ?| With Kidney Damage ?| ?Without Kidney Damage+ --------+ --------+ +| ?>90 ?| ?Stage one ?| ? Normal ?+ ---+ ---+ -------+| ?60-89 ?| ?Stage two ?| ? Decreased GFR ? + --+ --+ ------+| ?30-59 ?| ?Stage three ?| ? Stage three ? + --+ --+ ------+| ?15-29 ?| ?Stage four ? | ? Stage four ?+ ---+ ---+ -------+| ?<15 (or dialysis) ? ?| ?Stage five ? | ? Stage five ?+ ---+ ---+ -------+ *Each stage assumes the associated GFR level has been in effect for at least three months. ?Stages 1 to 5, with or without kidney disease, indicate chronic kidney disease. Notes: Determination of stages one and two (with eGFR >59mL/min/1.73 m2) requires estimation of kidney damage for at least three months as defined by structural or functional abnormalities of the kidney, manifested by either:Pathological abnormalities or Markers of kidney damage (including abnormalities in the composition of the blood or urine or abnormalities in imaging tests). Lab Interpretation Abnormal (test code = 69338-0) [facility] 18[facility]48:02 Test Item Value Reference Range Interpretation Comments LIPASE (test code = 8893101400) 292 U/L 0-220 H Lab Interpretation (test code = Abnormal 43431-7) [facility] WITH [id number] 18:39:23 Test Item Value Reference Range Interpretation Comments WBC (test code = See_Comment [Automated 2464-2) message] The sy stem which generated this result transmitted reference range : 4.30 - 11.10 10*3/?L. The reference range was not used to interpret this result as normal/abnormal . RBC (test code = See_Comment [Automated 559-9) message] The sy stem which generated this result transmitted reference range : 3.93 - 5.25 10*6/?L. The reference range was not used to interpret this result as normal/abnormal . HGB (test code = 12.5 g/dL 11.6-15.0 718-7) HCT (test code = 38.3 % 35.7-45.2 4544-3) MCV (test code = 89.3 fL 80.6-95.5 787-2) MCH (test code = 29.1 pg 25.9-32.8 785-6) MCHC (test code = 32.6 g/dL 31.6-35.1 786-4) RDW-SD (test code = 48.4 fL 39.0-49.9 06076-5) RDW-CV (test code = 14.6 % 12.0-15.5 788-0) PLT (test code = See_Comment [Automated 777-3) message] The sy stem which generated this result transmitted reference range : 166 - 358 10*3/ ?L. The reference r luca was not used to interpret this result as normal/abnormal . MPV (test code = 10.1 fL 9.5-12.9 50532-8) NRBC/100 WBC (test See_Comment [Automat ed code = 8395973233) message] The system which generated this result transmitted reference range : 0.0 - 10.0 /100 WBCs. The refer ence range was not u sed to interpret th is result as normal/abnormal . NRBC x10^3 (test code <0.01 See_Comment [Auto mated = 9305332337) message] The s ystem which generated this result transmitted reference range : 10*3/?L. The reference range was not used to interpret this result as normal/abnormal . GRAN MAT (NEUT) % 75.2 % (test code = 770-8) IMM GRAN % (test code 0.60 % = 3595676736) LYMPH % (test code = 17.0 % 736-9) MONO % (test code = 5.8 % 5905-5) EOS % (test code = 0.9 % 713-8) BASO % (test code = 0.5 % 706-2) GRAN MAT x10^3(ANC) 8.11 10*3/uL 1.88-7.09 H (test code = 1325163863) IMM GRAN x10^3 (test 0.06 10*3/uL 0.00-0.06 code = 3002532754) LYMPH x10^3 (test code 1.83 10*3/uL 1.32-3.29 = 731-0) MONO x10^3 (test code 0.62 10*3/uL 0.33-0.92 = 742-7) EOS x10^3 (test code = 0.10 10*3/uL 0.03-0.39 711-2) BASO x10^3 (test code 0.05 10*3/uL 0.01-0.07 = 704-7) Lab Interpretation Abnormal (test code = 65592-5) [facility] WITH [id number] 18:39:23 Test Item Value Reference Range Interpretation Comments WBC (test code = See_Comment [Automated 6690-2) message] The sy stem which generated this result transmitted reference range : 4.30 - 11.10 10*3/?L. The reference range was not used to interpret this result as normal/abnormal . RBC (test code = See_Comment [Automated 789-8) message] The sy stem which generated this result transmitted reference range : 3.93 - 5.25 10*6/?L. The reference range was not used to interpret this result as normal/abnormal . HGB (test code = 12.5 g/dL 11.6-15.0 718-7) HCT (test code = 38.3 % 35.7-45.2 4544-3) MCV (test code = 89.3 fL 80.6-95.5 787-2) MCH (test code = 29.1 pg 25.9-32.8 785-6) MCHC (test code = 32.6 g/dL 31.6-35.1 786-4) RDW-SD (test code = 48.4 fL 39.0-49.9 59862-2) RDW-CV (test code = 14.6 % 12.0-15.5 788-0) PLT (test code = See_Comment [Automated 777-3) message] The sy stem which generated this result transmitted reference range : 166 - 358 10*3/ ?L. The reference r luca was not used to interpret this result as normal/abnormal . MPV (test code = 10.1 fL 9.5-12.9 98124-5) NRBC/100 WBC (test See_Comment [Automat ed code = 1067145479) message] The system which generated this result transmitted reference range : 0.0 - 10.0 /100 WBCs. The refer ence range was not u sed to interpret th is result as normal/abnormal . NRBC x10^3 (test code <0.01 See_Comment [Auto mated = 1793136032) message] The s [employer] which generated this result transmitted reference range : 10*3/?L. The reference range was not used to interpret this result as normal/abnormal . GRAN MAT (NEUT) % 75.2 % (test code = 770-8) IMM GRAN % (test code 0.60 % = 3245883407) LYMPH % (test code = 17.0 % 736-9) MONO % (test code = 5.8 % 5905-5) EOS % (test code = 0.9 % 713-8) BASO % (test code = 0.5 % 706-2) GRAN MAT x10^3(ANC) 8.11 10*3/uL 1.88-7.09 H (test code = 3357412420) IMM GRAN x10^3 (test 0.06 10*3/uL 0.00-0.06 code = 3713092698) LYMPH x10^3 (test code 1.83 10*3/uL 1.32-3.29 = 731-0) MONO x10^3 (test code 0.62 10*3/uL 0.33-0.92 = 742-7) EOS x10^3 (test code = 0.10 10*3/uL 0.03-0.39 711-2) BASO x10^3 (test code 0.05 10*3/uL 0.01-0.07 = 704-7) Lab Interpretation Abnormal (test code = 10754-8) [facility] PELVIS COMPLETE WITH [id number] 23:13:25Focal echogenicity in the left ovary measuring 3 mm. This maybe from a previous hemorrhagic cyst or less likely dermoid.2. Nabothian cysts.3. Otherwise unremarkable pelvic ultrasound. RL: [id number] ENDOF REPORT Ordering Physician: VIRA WASHBURN Clinical Indication: PMB Additional Clinical Information: Technical Quality: Good Comparison: CT scanfrom 07/07/2020 Technique: Pelvic ultrasound Findings: Transabdominal exam shows no bladder wall thickening. Uterus and0.3 x 3.4 x 3.6 cm. Endometrial thickness is 2 mm. Neither ovary could be seen therefore transvaginal exam was performed. There is a nabothian cyst. The right ovary measures 0.9 x 0.9 x 1.2 cm. Left ovary measures 1.2 x 1.3 x 1.2 cm. There is an echogenic structurewithin the left ovary that may be a focal calcification measuring 3 mm. Color spectral Doppler flow is confirmed within both ovaries. [facility], Radiant Results Inft User - 12/23/2020 6:14 PM CDT Ordering Physician: VIRA WASHBURNClinical Indication: PMB Additional Clinical Information:Technical Quality: GoodComparison: CT scan from 07/07/2020Technique: Pelvic ultrasoundFindings: Transabdominal exam shows no bladder wall thickening. Uterus and0.3 x 3.4 x 3.6 cm. Endometrial thickness is 2 mm.Neither ovary could be seen therefore transvaginal exam was performed.Thereis a nabothian cyst.The right ovary measures 0.9 x 0.9 x 1.2 cm.Left ovary measures 1.2 x 1.3 x 1.2 cm. There is an echogenic structurewithin the left ovary that may be a focal calcification measuring 3 mm.Color spectral Doppler flow is confirmed within both ovaries.IMPRESSIONFocal echogenicity in theleft ovary measuring 3 mm. This maybe from a previous hemorrhagic cyst or less likely dermoid.2. Nabothian cysts.3. Otherwise unremarkable pelvic ultrasound.RL: 5611END OF REPORT [facility] HospitalL[facility] Whole [id number] 22:23:55 Test Item Value Reference Range Interpretation Comments LACTIC ACID (test code = 1.49 mmol/L 0.50-2.20 8269705341) Lab Interpretation (test code = Normal 88991-7) [facility] [id number] 22:20:59 1. ?No acute intra-abdominal abnormality. 2. ?Gastric wall thickening is nonspecific but can be seen with gastritis. 3. ?Postsurgical changes of cholecystectomy and appendectomy. Pneumobiliaversus nonradiopaque biliary stents are unchanged dating back to 2016. 4. ?Hepatic steatosis and splenomegaly. The 0.9 cm cystic hypodensity atthe uncinate process is slightly smaller from 03/26/2020. [facility], with resultssuggestive of pseudocyst versusside branch IPMN. Preliminary Report Dictated by Resident: Dwight Lennon MD., have reviewed this study and agree with the abovereport.EXAM: CT ABDOMEN PELVIS W CONTRAST HISTORY: 60 years-old Female; Diverticulitis suspected Nausea/vomiting ."Abdominal pain x 3 days with vomiting for past 2 days. ?Reports a historyof chronic pancreatitis.". Known history of primary biliary cirrhosisstatus post stent placement. TECHNIQUE: Contiguous axial imaging from the level of the lung basesthrough the proximal thighs was performed with intravenous contrast.Coronal and sagittal reconstructions were obtained. COMPARISON: CT abdomen pelvis dated 07/07/2020, 03/26/2020, 12/18/2019.Abdominal ultrasound dated 10/11/2020. FINDINGS: LOWER THORAX: Evaluation of the lungs is greatly limited by excessiverespiratory artifact. The heart appears at the upper limits of normal insize. LIVER: The liver is normalin size and contour. Subcentimeter hypodensitieswithin the left hepatic lobe are too small to characterize and are grosslyunchanged from prior examinations. The hepatic parenchyma is diffuselyhypoattenuating. GALLBLADDER AND BILIARY TREE: Postsurgical changes of cholecystectomy arenoted. Intra and extrahepatic pneumobilia or nonradiopaque biliary stentsare unchanged dating back to at least 2015. SPLEEN: The spleen is mildly enlarged and measures 13.5 cm. PANCREAS: A 0.9 cm cystic hypodensity at theuncinate process is slightlysmaller compared 03/26/2020 (2:47). No ductal dilatation is visualized. ADRENAL GLANDS: Nodular thickening of the left adrenal gland is notedwithout discrete masses. KIDNEYS: No hydronephrosis, stones, or solid masses are visualized. Cystichypodensities within the right kidney are unchanged and likely representsimple cysts. PELVIS/BLADDER: The bladder is partially collapsed, which limitsevaluation. The uterus and ovaries grossly unremarkable. Essure coils areseen. GI TRACT: Mild wall thickening of the distal stomach is more prominentcompared to 07/07/2020. Postsurgical changes involving the terminal ileumand appendix are again seen. PERITONEUM AND RETROPERITONEUM: No intra- abdominal free air or fluidcollection is visualized. LYMPH NODES: Subcentimeter mesenteric and retroperitoneal lymph nodes arenonspecific and likely reactive. VESSELS: Mild atherosclerotic calcifications affect the abdominal aorta. BONES AND SOFT TISSUES: No suspicious lytic or sclerotic bony lesions arepresent. Spondylotic changes are manifested by endplate sclerosis, vacuumphenomenon, and facet arthropathy. [facility], Radiant Results Inft User - 12/05/2020 5:22 PM CDT EXAM: CT ABDOMEN PELVIS W CONTRASTHISTORY: 60 years-old Female; Diverticulitis suspected Nausea/vomiting ."Abdominal pain x 3 days with vomiting for past 2 days. ?Reports ahistoryof chronic pancreatitis.". Known history of primary biliary cirrhosisstatus post stent placement.TECHNIQUE: Contiguous axial imaging from the level of the lung basesthrough the proximal thighs was performed with intravenous contrast.Coronal and sagittal reconstructions were obtained. COMPARISON: CT abdomen pelvis dated 07/07/2020, 03/26/2020, 12/18/2019.Abdominal ultrasound dated 10/11/2020.FINDINGS:LOWER THORAX: Evaluation of the lungs is greatly limited by excessiverespiratory artifact. The heart appears at the upper limits of normal insize.LIVER: The liver is normal in size and contour. Subcen timeter hypodensitieswithin the left hepatic lobe are too small to characterize and are grosslyunchanged from prior examinations. The hepatic parenchyma is diffuselyhypoattenuating. GALLBLADDER AND BILIARY TREE: Postsurgical changes of cholecystectomy arenoted. Intra and extrahepatic pneumobilia or nonradiopaque biliary stentsare unchanged dating back to at least 2016.SPLEEN: The spleen is mildly enlarged and measures 13.5 cm.PANCREAS: A 0.9 cm cystic hypodensity at the uncinate process is slightlysmaller compared 03/26/2020 (2:47). No ductal dilatation is visualized.ADRENAL GLANDS: Nodular thickening of the left adrenal gland is notedwithout discrete masses.KIDNEYS: No hydronephrosis, stones, or s olid masses are visualized. Cystichypodensities within the right kidney are unchanged and likely representsimple cysts.PELVIS/BLADDER: The bladder is partially collapsed, which limitsevaluation. The uterus and ovaries grossly unremarkable. Essure coils areseen.GI TRACT: Mild wall thickening of the distal stomach is more prominentcompared to 07/07/2020. Postsurgical changes involving the terminal ileumand appendix are again seen.PERITONEUM AND RETROPERITONEUM: No intra-abdominal free air or fluidcollection is visualized. LYMPH NODES: Subcentimeter mesenteric and retroperitoneal lymph nodes arenonspecific and likely reactive.VESSELS: Mild atherosclerotic calcifications affect the abdominal aorta.BONES AND SOFT TISSUES: No suspicious lytic or sclerotic bony lesions arepresent. Spondylotic changes aremanifested by endplate sclerosis, vacuumphenomenon, and facet arthropathy.IMPRESSION1. No acute intra-abdominal abnormality.2. Gastric wall thickening is nonspecific but can be seen with gastritis.3. Postsurgical changes of cholecystectomy and appendectomy. Pneumobiliaversus nonradiopaque biliary stents are unchanged dating back to 2016.4. Hepatic steatosis and splenomegaly. The 0.9 cm cystic hypodensity atthe uncinate process is slightly smaller from 03/26/2020. [facility], with resultssuggestive of pseudocyst versus side branch IPMN.Preliminary Report Dictated by Resident: Chester Rivera, Dwight Akers MD., have reviewed this study andagree with the abovereport.[facility]INALYSIS2021-08-23 20:42:19 Test Item Value Reference Range Interpretation Comments APPEARANCE (test code = Clear Clear 1700268899) COLOR (test code = Romelia Yellow A 5666460288) PH (test code = 4.8-8.0 3996245358) SP GRAVITY (test code = 1.003-1.030 4006963612) GLU U QUAL (test code = Normal Normal 9048475725) BLOOD (test code = Negative Negative 1504528106) KETONES (test code = Negative Negative 6775546011) PROTEIN (test code = 30 mg/dL Negative A 2887-8) UROBILIN (test code = 4.0 mg/dL Normal A 5754196103) BILIRUBIN (test code = 2 mg/dL Negative A 0352105747) NITRITE (test code = Negative Negative 1168256592) LEUK NICHOLE (test code = Negative Negative 8636689311) RBC/HPF (test code = See_Comment [Autom ated message] 9301151657) The system [employer] generated this result transmit gulshan reference range : 0 - 3 HPF. The refe rence range was not u sed to interpret th is result as normal/abnormal . WBC/HPF (test code = See_Comment [Autom ated message] 6532597607) The system [employer] generated this result transmit gulshan reference range : 0 - 5 HPF. The refe rence range was not u sed to interpret th is result as normal/abnormal . BACTERIA (test code = Few Negative A 7263074158) MUCOUS (test code = Slight Negative LPF A 5777854676) SQ EPITH (test code = HPF 8857865766) HYAL CAST (test code = See_Comment [Aut omated message] 1894698862) The system [employer] generated this result transmit gulshan reference range : <=2 LPF. The refere nce range was not u sed to interpret th is result as normal/abnormal . Lab Interpretation (test Abnormal code = 32908-2) [facility]landCOMP. METABOLIC PANEL ([id number])2020-12-05 20:38:13 Test Item Value Reference Range Interpretation Comments NA (test code = 139 mmol/L 135-145 8061762087) K (test code = 3.6 mmol/L 3.5-5.0 0763214840) CL (test code = 106 mmol/L 98-108 9264043113) CO2 TOTAL (test code = 21 mmol/L 23-31 L 3076523119) AGAP (test code = 2-16 7884186328) BUN (test code = 12 mg/dL 7-23 2300820349) GLUCOSE (test code = 91 mg/dL 70-110 9816130941) CREATININE (test code = 0.53 mg/dL 0.50-1.04 6973437521) TOTAL BILI (test code = 3.6 mg/dL 0.1-1.1 H 1619484707) CALCIUM (test code = 9.8 mg/dL 8.6-10.6 7809179729) T PROTEIN (test code = 9.1 g/dL 6.3-8.2 H 5735929180) ALBUMIN (test code = 4.6 g/dL 3.5-5.0 6122174335) ALK PHOS (test code = 1229 U/L 34-122 H 6753875343) ALTv (test code = 311 U/L 5-35 H 1742-6) AST(SGOT) (test code = 280 U/L 13-40 H 8696966076) eGFR (test code = mL/min/1.73m2 3361276150) KIM (test code = KIM) Association of Glomerular Filtration Rate (GFR) and Staging of Kidney Disease* + --+ --+ ------+| GFR (mL/min/1.73 m2) ?| With Kidney Damage ?| ?Without Kidney Damage+ --------+ --------+ +| ?>90 ?| ?Stage one ?| ? Normal ?+ ---+ ---+ -------+| ?60-89 ?| ?Stage two ?| ? Decreased GFR ? + --+ --+ ------+| ?30-59 ?| ?Stage three ?| ? Stage three ? + --+ --+ ------+| ?15-29 ?| ?Stage four ? | ? Stage four ?+ ---+ ---+ -------+| ?<15 (or dialysis) ? ?| ?Stage five ? | ? Stage five ?+ ---+ ---+ -------+ *Each stage assumes the associated GFR level has been in effect for at least three months. ?Stages 1 to 5, with or without kidney disease, indicate chronic kidney disease. Notes: Determination of stages one and two (with eGFR >59mL/min/1.73 m2) requires estimation of kidney damage for at least three months as defined by structural or functional abnormalities of the kidney, manifested by either:Pathological abnormalities or Markers of kidney damage (including abnormalities in the composition of the blood or urine or abnormalities in imaging tests). Lab Interpretation Abnormal (test code = 41931-5) [facility]landLIPASE2021-08-23 20:37:32 Test Item Value Reference Range Interpretation Comments LIPASE (test code = 2122925101) 168 U/L 0-220 Lab Interpretation (test code = Normal 86937-8) [facility]landCB WITH [id number] 20:25:55 Test Item Value Reference Range Interpretation Comments WBC (test code = See_Comment [Automated 6690-2) message] The sy stem which generated this result transmitted reference range : 4.30 - 11.10 10*3/?L. The reference range was not used to interpret this result as normal/abnormal . RBC (test code = See_Comment L [Automated 789-8) message] The sy stem which generated this result transmitted reference range : 3.93 - 5.25 10*6/?L. The reference range was not used to interpret this result as normal/abnormal . HGB (test code = 10.9 g/dL 11.6-15.0 L 718-7) HCT (test code = 34.2 % 35.7-45.2 L 4544-3) MCV (test code = 89.5 fL 80.6-95.5 787-2) MCH (test code = 28.5 pg 25.9-32.8 785-6) MCHC (test code = 31.9 g/dL 31.6-35.1 786-4) RDW-SD (test code = 49.3 fL 39.0-49.9 99884-5) RDW-CV (test code = 15.0 % 12.0-15.5 788-0) PLT (test code = See_Comment [Automated 777-3) message] The sy stem which generated this result transmitted reference range : 166 - 358 10*3/ ?L. The reference r luca was not used to interpret this result as normal/abnormal . MPV (test code = 10.2 fL 9.5-12.9 76269-4) NRBC/100 WBC (test See_Comment [Automat ed code = 8830901617) message] The system which generated this result transmitted reference range : 0.0 - 10.0 /100 WBCs. The refer ence range was not u sed to interpret th is result as normal/abnormal . NRBC x10^3 (test code <0.01 See_Comment [Auto mated = 0947775882) message] The s ystem which generated this result transmitted reference range : 10*3/?L. The reference range was not used to interpret this result as normal/abnormal . GRAN MAT (NEUT) % 68.6 % (test code = 770-8) IMM GRAN % (test code 0.40 % = 3659840270) LYMPH % (test code = 21.2 % 736-9) MONO % (test code = 7.8 % 5905-5) EOS % (test code = 1.6 % 713-8) BASO % (test code = 0.4 % 706-2) GRAN MAT x10^3(ANC) 3.50 10*3/uL 1.88-7.09 (test code = 1227005823) IMM GRAN x10^3 (test <0.03 0.00-0.06 code = 1997560734) LYMPH x10^3 (test code 1.08 10*3/uL 1.32-3.29 L = 731-0) MONO x10^3 (test code 0.40 10*3/uL 0.33-0.92 = 742-7) EOS x10^3 (test code = 0.08 10*3/uL 0.03-0.39 711-2) BASO x10^3 (test code <0.03 0.01-0.07 = 704-7) Lab Interpretation Abnormal (test code = 01716-0) [facility]landLIPID PANEL (11434)(TOTAL CHOLESTEROL, TRIGLYCERIDES, HDL)2020-10-12 16:46:34 Test Item Value Reference Range Interpretation Comments CHOL (test code = 307 mg/dL 120-200 H 1140575464) HDL (test code = 93 mg/dL >50 2133497962) HDLC RATIO (test code = See_Comment [Au tomated message] 6825785358) The system [employer] generated this result transmit gulshan reference range : <=4.5. The refe rence range was not u sed to interpret th is result as normal/abnormal . TRIG (test code = 131 mg/dL 30-170 9251173550) LDL CHOL (test code = 188 mg/dL See_Comment H [Auto mated message] 27617-9) The system [employer] generated this result transmit gulshan reference range : <=160. The refe rence range was not u sed to interpret th is result as normal/abnormal . VLDL (test code = 26 mg/dL 5-60 7183458312) Lab Interpretation (test Abnormal code = 03348-7) [facility] PearlandMagnesium [id number] 09:02:26 Test Item Value Reference Range Interpretation Comments MAGNESIUM (test code = 6602349657) 1.9 mg/dL 1.7-2.4 Lab Interpretation (test code = Normal 58626-7) [facility]landHEPATIC FUNCTION PANEL (82434) (ALB,T.PRO,BILI T,BU/BC,ALT,AST,ALK PHOS)2020-10-12 09:02:26 Test Item Value Reference Range Interpretation Comments TOTAL BILI (test code = 3525103106) 1.0 mg/dL 0.1-1.1 BILI UNCON (test code = 8686362260) 0.5 mg/dL 0.1-1.1 BILI CONJ (test code = 4995986274) 0.0 mg/dL 0.0-0.3 T PROTEIN (test code = 0699857986) 7.8 g/dL 6.3-8.2 ALBUMIN (test code = 6338395401) 4.3 g/dL 3.5-5.0 ALK PHOS (test code = 9484850542) 608 U/L 34-122 H ALTv (test code = 1742-6) 156 U/L 5-35 H AST(SGOT) (test code = 6298047840) 136 U/L 13-40 H Lab Interpretation (test code = Abnormal 79945-9) [facility] PearlandProthrombin Time / [id number] 08:48:50 Test Item Value Reference Range Interpretation Comments PROTIME PATIENT (test See_Comment [Auto mated message] code = 5964-2) The system [employer] generated this result transmitted ref erence range: 10.1 - 1 2.6 Seconds. The re ference range was not u sed to interpret this result as normal/abnor mal. INR (test code = 6301-6) Nor mal INR <1.1; Warfarin Therap eutic range 2.0 to 3. 0 or 2.5 to 3.5, dep ending upon the indica tions. Lab Interpretation (test Normal code = 57782-4) [facility] PearlandaPTT2021-06-30 08:48:50 Test Item Value Reference Range Interpretation Comments APTT Patient (test code See_Comment H [Au tomated message] = 3173-2) The system [employer] h generated this result transmitted ref erence range: 26 - 36 Seconds. The reference range was not used to int erpret this result as normal/abnormal . Lab Interpretation (test Abnormal code = 44026-7) [facility] with [id number] 08:31:22 Test Item Value Reference Range Interpretation Comments WBC (test code = See_Comment [Automated 6690-2) message] The sy stem which generated this result transmitted reference range : 4.30 - 11.10 10*3/?L. The reference range was not used to interpret this result as normal/abnormal . RBC (test code = See_Comment L [Automated 789-8) message] The sy stem which generated this result transmitted reference range : 3.93 - 5.25 10*6/?L. The reference range was not used to interpret this result as normal/abnormal . HGB (test code = 10.6 g/dL 11.6-15.0 L 718-7) HCT (test code = 33.4 % 35.7-45.2 L 4544-3) MCV (test code = 89.3 fL 80.6-95.5 787-2) MCH (test code = 28.3 pg 25.9-32.8 785-6) MCHC (test code = 31.7 g/dL 31.6-35.1 786-4) RDW-SD (test code = 41.3 fL 39.0-49.9 43204-9) RDW-CV (test code = 12.6 % 12.0-15.5 788-0) PLT (test code = See_Comment [Automated 777-3) message] The sy stem which generated this result transmitted reference range : 166 - 358 10*3/ ?L. The reference r luca was not used to interpret this result as normal/abnormal . MPV (test code = 9.1 fL 9.5-12.9 L 61181-5) NRBC/100 WBC (test See_Comment [Automat ed code = 8129620341) message] The system which generated this result transmitted reference range : 0.0 - 10.0 /100 WBCs. The refer ence range was not u sed to interpret th is result as normal/abnormal . NRBC x10^3 (test code <0.01 See_Comment [Auto mated = 2936164804) message] The s ystem which generated this result transmitted reference range : 10*3/?L. The reference range was not used to interpret this result as normal/abnormal . GRAN MAT (NEUT) % 62.6 % (test code = 770-8) IMM GRAN % (test code 0.40 % = 5414901722) LYMPH % (test code = 26.8 % 736-9) MONO % (test code = 7.7 % 5905-5) EOS % (test code = 2.1 % 713-8) BASO % (test code = 0.4 % 706-2) GRAN MAT x10^3(ANC) 3.32 10*3/uL 1.88-7.09 (test code = 8067862093) IMM GRAN x10^3 (test <0.03 0.00-0.06 code = 8929054171) LYMPH x10^3 (test code 1.42 10*3/uL 1.32-3.29 = 731-0) MONO x10^3 (test code 0.41 10*3/uL 0.33-0.92 = 742-7) EOS x10^3 (test code = 0.11 10*3/uL 0.03-0.39 711-2) BASO x10^3 (test code <0.03 0.01-0.07 = 704-7) Lab Interpretation Abnormal (test code = 39450-7) [facility] METABOLIC PANEL (NA, K, CL, CO2, GLUCOSE, BUN, CREATININE, CA)2020-10-12 04:16:15 Test Item Value Reference Range Interpretation Comments NA (test code = 138 mmol/L 135-145 6628121868) K (test code = 4.1 mmol/L 3.5-5.0 1697438399) CL (test code = 104 mmol/L 98-108 9513030634) CO2 TOTAL (test code 23 mmol/L 23-31 = 9604684118) AGAP (test code = 2-16 5556150141) BUN (test code = 16 mg/dL 7-23 9960335170) GLUCOSE (test code = 83 mg/dL 70-110 9663717485) CREATININE (test code 0.63 mg/dL 0.50-1.04 = 1855692509) CALCIUM (test code = 9.4 mg/dL 8.6-10.6 9048323224) eGFR (test code = mL/min/1.73m2 7934559843) KIM (test code = KIM) Association of Glomerular Filtration Rate (GFR) and Staging of Kidney Disease* + + +- +| GFR (mL/min/1.73 m2) ?| With Kidney Damage ?| ?Without Kidney Damage+ ------+ ----+ ------+| ?>90 ?| ?Stage one ?| ? Normal ?+ -+ + -+| ?60-89 ?| ?Stage two ?| ? Decreased GFR ? + + +- +| ?30-59 ?| ?Stage three ?| ? Stage three ? + + +- +| ?15-29 ?| ?Stage four ? | ? Stage four ?+ -+ + -+| ?<15 (or dialysis) ? ?| ?Stage five ? | ? Stage five ?+ -+ + -+ *Each stage assumes the associated GFR level has been in effect for at least three months. ?Stages 1 to 5, with or without kidney disease, indicate chronic kidney disease. Notes: Determination of stages one and two (with eGFR >59mL/min/1.73 m2) requires estimation of kidney damage for at least three months as defined by structural or functional abnormalities of the kidney, manifested by either:Pathological abnormalities or Markers of kidney damage (including abnormalities in the composition of the blood or urine or abnormalities in imaging tests). [facility]landHEPATIC FUNCTION PANEL (46197) (ALB,T.PRO,BILI T,BU/BC,ALT,AST,ALK PHOS)2020-10-12 04:16:15 Test Item Value Reference Range Interpretation Comments TOTAL BILI (test code = 8784079232) 1.1 mg/dL 0.1-1.1 BILI UNCON (test code = 8468500946) 0.5 mg/dL 0.1-1.1 BILI CONJ (test code = 3019579990) 0.0 mg/dL 0.0-0.3 T PROTEIN (test code = 5608571538) 8.5 g/dL 6.3-8.2 H ALBUMIN (test code = 1488688162) 4.6 g/dL 3.5-5.0 ALK PHOS (test code = 3175698695) 679 U/L 34-122 H ALTv (test code = 1742-6) 168 U/L 5-35 H AST(SGOT) (test code = 7803488233) 143 U/L 13-40 H Lab Interpretation (test code = Abnormal 83742-5) [facility]landCOVID-19 (ID NOW RAPID TESTING)2020-10-11 16:36:41 Test Item Value Reference Range Interpretation Comments SARS-CoV-2 Rapid ID NOW Not Detected Not Detected (test code = 70345-4) KMI (test code = KIM) ID NOW COVID-19 Assay is an isothermal nucleic acid amplification test intended for the qualitative detection of nucleic acid from SARS-CoV-2 viral RNA in nasopharyngeal (ENGLISH LANGUAGE LEARNER TEACHER) specimens. It is used under Emergency Use Authorization (EUA) by FDA. The limit of detection (LOD) of the assay is 125 Genome Equivalents/mL. A positive result is indicative of the presence of SARS-CoV-2 RNA. ?Clinical correlation with patient history and other diagnostic [...] for repeat patient testing if clinically indicated. Lab Interpretation Normal (test code = 84347-6) [facility] PearlandUS GALL [id number] 15:28:53HISTORY: Rule out biliary duct stenosis. COMPARISON: CT studies of 07/07/2020. TECHNIQUE: Liver as well as biliary ducts were evaluated in multiple planeswithout and with color imaging. FINDINGS: Liver is approximately 15.7 cm and showed normal homogeneousechotexture. Hepatic/portal venous systems appear patent with hepatopedalportal venous flow confirmed. No fluid is seen in the right upper abdomen.No dilatation of the intrahepatic biliary ducts. Most of the pancreas wasobscured due to gas. Small portions of head and body of the pancreasvisualized are normal. Gallbladder has been removed. Common hepatic duct is 4.9 mm. CONCLUSIONS:1. Normal ultrasound study of liver.2. S/P cholecystectomy. Normal size common duct. Please note that the ductstenosis cannot be adequately evaluated by this study.[facility], Radiant Results Inft User - 10/11/2020 10:30 AM CDT HISTORY: Rule out biliary duct stenosis.COMPARISON: CT studies of 07/07/2020.TECHNIQUE: Liver as well as biliary ducts were evaluated in multiple planeswithout and with color imaging.FINDINGS: Liver is approximately 15.7 cm and showed normal homogeneousechotexture. Hepatic/portal venous systems appear patent with hepatopedalportal venous flow confirmed. No fluid is seen in the right upper abdomen.No dilatation of the intrahepatic biliary ducts. Most of the pancreas wasobscured due to gas.Small portions of head and body of the pancreasvisualized are normal.Gallbladder has been removed. Common hepatic duct is 4.9 mm.CONCLUSIONS:1. Normal ultrasound study of liver.2. S/P cholecystectomy. Normal size common duct. Please note that the ductstenosis cannot be adequately evaluated by this study.[facility] Troponin [id number] 14:35:05 Test Item Value Reference Interpretation Comments Range TROPONIN I (test 0.004 ng/mL See_Comment [Automated code = 8250152458) message] The system which generated this result transmitted reference range : <=0.034. The reference range was not used to interpret this result as normal/abnormal . KIM (test code = Reference (Normal) KIM) Range (defined by the 99th percentile reference limit): <= 0.034 ng/mL Note: Cardiac troponin begins to rise 3-4 hours after the onset of ischemia. Repeat in 4-6 hours if the sample was drawn within 3-4 hours of the onset of the symptom and found normal. Diagnosis of myocardial injury is made with acute changes in cTn concentrations with at least one serial sample above the 99th percentile upper reference limit (URL), taken together with the patient's clinical presentation. Biotin has been reported to cause a negative bias, interpret results relative to patient's use of biotin. Lab Interpretation Normal (test code = 45490-4) [facility]landHepatic Function Panel (ALB, T.PRO, BILI T, BU/BC, ALT, AST, ALK PHOS)2020-10-11 14:24:25 Test Item Value Reference Range Interpretation Comments TOTAL BILI (test code = 9536808661) 0.9 mg/dL 0.1-1.1 BILI UNCON (test code = 7819551074) 0.3 mg/dL 0.1-1.1 BILI CONJ (test code = 0016044317) 0.0 mg/dL 0.0-0.3 T PROTEIN (test code = 9668197292) 9.0 g/dL 6.3-8.2 H ALBUMIN (test code = 4542089593) 4.8 g/dL 3.5-5.0 ALK PHOS (test code = 8617963416) 752 U/L 34-122 H ALTv (test code = 1742-6) 164 U/L 5-35 H AST(SGOT) (test code = 4905558361) 166 U/L 13-40 H Lab Interpretation (test code = Abnormal 50862-2) [facility]landBasic Metabolic Panel (NA, K, CL, CO2, GLUCOSE, BUN, CREATININE, CA)2020-10-11 14:24:05 Test Item Value Reference Range Interpretation Comments NA (test code = 139 mmol/L 135-145 0648178698) K (test code = 4.3 mmol/L 3.5-5.0 8451294607) CL (test code = 106 mmol/L 98-108 6479417129) CO2 TOTAL (test code = 22 mmol/L 23-31 L 6684820385) AGAP (test code = 2-16 6962315538) BUN (test code = 15 mg/dL 7-23 4579325079) GLUCOSE (test code = 106 mg/dL 70-110 9687597930) CREATININE (test code = 0.63 mg/dL 0.50-1.04 2127849231) CALCIUM (test code = 10.0 mg/dL 8.6-10.6 7661514293) eGFR (test code = mL/min/1.73m2 6966162524) KIM (test code = KIM) Association of Glomerular Filtration Rate (GFR) and Staging of Kidney Disease* + --+ --+ ------+| GFR (mL/min/1.73 m2) ?| With Kidney Damage ?| ?Without Kidney Damage+ --------+ --------+ +| ?>90 ?| ?Stage one ?| ? Normal ?+ ---+ ---+ -------+| ?60-89 ?| ?Stage two ?| ? Decreased GFR ? + --+ --+ ------+| ?30-59 ?| ?Stage three ?| ? Stage three ? + --+ --+ ------+| ?15-29 ?| ?Stage four ? | ? Stage four ?+ ---+ ---+ -------+| ?<15 (or dialysis) ? ?| ?Stage five ? | ? Stage five ?+ ---+ ---+ -------+ *Each stage assumes the associated GFR level has been in effect for at least three months. ?Stages 1 to 5, with or without kidney disease, indicate chronic kidney disease. Notes: Determination of stages one and two (with eGFR >59mL/min/1.73 m2) requires estimation of kidney damage for at least three months as defined by structural or functional abnormalities of the kidney, manifested by either:Pathological abnormalities or Markers of kidney damage (including abnormalities in the composition of the blood or urine or abnormalities in imaging tests). Lab Interpretation Abnormal (test code = 81116-5) [facility] PearlandLipase [id number] 14:24:05 Test Item Value Reference Range Interpretation Comments LIPASE (test code = 7253997208) 169 U/L 0-220 Lab Interpretation (test code = Normal 76434-7) [facility] PearlandUrinalysis2021-06-29 14:23:55 Test Item Value Reference Range Interpretation Comments APPEARANCE (test code = Hazy Clear A 3576460764) COLOR (test code = Yellow Yellow 9952100004) PH (test code = 4.8-8.0 0475948789) SP GRAVITY (test code = 1.003-1.030 2092673570) GLU U QUAL (test code = Normal Normal 5334588310) BLOOD (test code = Negative Negative 7855623561) KETONES (test code = Negative Negative 0236921669) PROTEIN (test code = Negative Negative 2887-8) UROBILIN (test code = Normal Normal 8229863737) BILIRUBIN (test code = Negative Negative 6583622220) NITRITE (test code = Negative Negative 5277527152) LEUK NICHOLE (test code = Negative Negative 6736850097) RBC/HPF (test code = See_Comment [Autom ated message] 8411451979) The system [employer] generated this result transmitted ref erence range: 0 - 3 HP F. The reference range was not used to int erpret this result as normal/abnormal . WBC/HPF (test code = See_Comment [Autom ated message] 2084807192) The system [employer] generated this result transmitted ref erence range: 0 - 5 HP F. The reference range was not used to int erpret this result as normal/abnormal . BACTERIA (test code = Few Negative A 5758614567) AMORPHOUS (test code = Rare Rare HPF 6656949015) SQ EPITH (test code = HPF 1576320031) HYAL CAST (test code = See_Comment H [Aut omated message] 9145041704) The system [employer] generated this result transmitted ref erence range: <=2 LPF. The reference range was not used to int erpret this result as normal/abnormal . Lab Interpretation (test Abnormal code = 51666-2) [facility] with [id number] 14:14:01 Test Item Value Reference Range Interpretation Comments WBC (test code = See_Comment [Automated message] 6690-2) The system [employer] generated this result transmitted ref erence range: 4.30 - 1 1.10 10*3/?L. The re ference range was not u sed to interpret this result as normal/abnor mal. RBC (test code = See_Comment [Automated message] 789-8) The system [employer] generated this result transmitted ref erence range: 3.93 - 5 .25 10*6/?L. The re ference range was not u sed to interpret this result as normal/abnor mal. HGB (test code = 11.6 g/dL 11.6-15.0 718-7) HCT (test code = 36.0 % 35.7-45.2 4544-3) MCV (test code = 88.9 fL 80.6-95.5 787-2) MCH (test code = 28.6 pg 25.9-32.8 785-6) MCHC (test code = 32.2 g/dL 31.6-35.1 786-4) RDW-SD (test code 40.1 fL 39.0-49.9 = 01594-2) RDW-CV (test code 12.3 % 12.0-15.5 = 788-0) PLT (test code = See_Comment [Automated message] 777-3) The system whic h generated this result transmitted ref erence range: 166 - 35 8 10*3/?L. The re ference range was not u sed to interpret this result as normal/abnor mal. MPV (test code = 9.7 fL 9.5-12.9 80472-1) NRBC/100 WBC (test See_Comment [Automat ed message] code = 1852597329) The syste m which generated this result transmitted ref erence range: 0.0 - 10 .0 /100 WBCs. The refer ence range was not u sed to interpret this result as normal/abnor mal. NRBC x10^3 (test <0.01 See_Comment [Automated message] code = 6487872855) The syste m which generated this result transmitted ref erence range: 10*3/?L. The reference range was not used to interpr et this result as normal/abnormal . GRAN MAT (NEUT) % 63.7 % (test code = 770-8) IMM GRAN % (test 0.40 % code = 8628053368) LYMPH % (test code 26.2 % = 736-9) MONO % (test code 7.6 % = 5905-5) EOS % (test code = 1.7 % 713-8) BASO % (test code 0.4 % = 706-2) GRAN MAT 3.45 10*3/uL 1.88-7.09 x10^3(ANC) (test code = 2701004525) IMM GRAN x10^3 <0.03 0.00-0.06 (test code = 8546466353) LYMPH x10^3 (test 1.42 10*3/uL 1.32-3.29 code = 731-0) MONO x10^3 (test 0.41 10*3/uL 0.33-0.92 code = 742-7) EOS x10^3 (test 0.09 10*3/uL 0.03-0.39 code = 711-2) BASO x10^3 (test <0.03 0.01-0.07 code = 704-7) [facility]. METABOLIC PANEL (03582)2020-10-04 23:43:59 Test Item Value Reference Range Interpretation Comments NA (test code = 138 mmol/L 135-145 0855827094) K (test code = 4.1 mmol/L 3.5-5.0 5714145663) CL (test code = 105 mmol/L 98-108 3714286353) CO2 TOTAL (test code = 26 mmol/L 23-31 2678765903) AGAP (test code = 2-16 0042845688) BUN (test code = 12 mg/dL 7-23 0084404706) GLUCOSE (test code = 124 mg/dL 70-110 H 7106781942) CREATININE (test code = 0.51 mg/dL 0.50-1.04 0342047138) TOTAL BILI (test code = 1.0 mg/dL 0.1-1.3 8623071542) CALCIUM (test code = 9.3 mg/dL 8.6-10.6 1001943048) T PROTEIN (test code = 7.9 g/dL 6.3-8.2 8028894487) ALBUMIN (test code = 4.1 g/dL 3.5-5.0 7859410758) ALK PHOS (test code = 619 U/L 34-122 H 5529974651) ALTv (test code = 99 U/L 5-35 H 1742-6) AST(SGOT) (test code = 97 U/L 13-40 H 7859407442) eGFR (test code = mL/min/1.73m2 8484749976) KIM (test code = KIM) Association of Glomerular Filtration Rate (GFR) and Staging of Kidney Disease* + --+ --+ ------+| GFR (mL/min/1.73 m2) ?| With Kidney Damage ?| ?Without Kidney Damage+ --------+ --------+ +| ?>90 ?| ?Stage one ?| ? Normal ?+ ---+ ---+ -------+| ?60-89 ?| ?Stage two ?| ? Decreased GFR ? + --+ --+ ------+| ?30-59 ?| ?Stage three ?| ? Stage three ? + --+ --+ ------+| ?15-29 ?| ?Stage four ? | ? Stage four ?+ ---+ ---+ -------+| ?<15 (or dialysis) ? ?| ?Stage five ? | ? Stage five ?+ ---+ ---+ -------+ *Each stage assumes the associated GFR level has been in effect for at least three months. ?Stages 1 to 5, with or without kidney disease, indicate chronic kidney disease. Notes: Determination of stages one and two (with eGFR >59mL/min/1.73 m2) requires estimation of kidney damage for at least three months as defined by structural or functional abnormalities of the kidney, manifested by either:Pathological abnormalities or Markers of kidney damage (including abnormalities in the composition of the blood or urine or abnormalities in imaging tests). Lab Interpretation Abnormal (test code = 11539-8) [facility]43:38 Test Item Value Reference Range Interpretation Comments LIPASE (test code = 7812000503) 182 U/L 0-220 Lab Interpretation (test code = Normal 49402-9) [facility]COVID[facility] (ID NOW RAPID TESTING)2020-10-04 23:39:59 Test Item Value Reference Range Interpretation Comments SARS-CoV-2 Rapid ID NOW Not Detected Not Detected (test code = 30014-4) KIM (test code = KIM) ID NOW COVID-19 Assay is an isothermal nucleic acid amplification test intended for the qualitative detection of nucleic acid from SARS-CoV-2 viral RNA in nasopharyngeal (ENGLISH LANGUAGE LEARNER TEACHER) specimens. It is used under Emergency Use Authorization (EUA) by FDA. The limit of detection (LOD) of the assay is 125 Genome Equivalents/mL. A positive result is indicative of the presence of SARS-CoV-2 RNA. ?Clinical correlation with patient history and other diagnostic [...] for repeat patient testing if clinically indicated. Lab Interpretation Normal (test code = 60069-0) [facility]21-[facility]-22 23:36:26 Test Item Value Reference Range Interpretation Comments APPEARANCE (test code = Clear Clear 6132088367) COLOR (test code = Romelia Yellow A 6827214192) PH (test code = 4.8-8.0 3081535064) SP GRAVITY (test code = 1.003-1.030 1466460642) GLU U QUAL (test code = Normal Normal 8588331768) BLOOD (test code = Negative Negative 3483000607) KETONES (test code = Negative Negative 2073407635) PROTEIN (test code = Negative Negative 2887-8) UROBILIN (test code = 4.0 mg/dL Normal A 5255645157) BILIRUBIN (test code = Negative Negative 3086546555) NITRITE (test code = Negative Negative 4015312394) LEUK NICHOLE (test code = Negative Negative 5070726466) RBC/HPF (test code = See_Comment [Autom ated message] 1683626416) The system [employer] generated this result transmit gulshan reference range : 0 - 3 HPF. The refe rence range was not u sed to interpret th is result as normal/abnormal . WBC/HPF (test code = <1 See_Comment [Autom ated message] 7401099226) The system [employer] generated this result transmit glushan reference range : 0 - 5 HPF. The refe rence range was not u sed to interpret th is result as normal/abnormal . BACTERIA (test code = Few Negative A 3143789003) MUCOUS (test code = Slight Negative LPF A 9101468846) SQ EPITH (test code = HPF 6142700653) Lab Interpretation (test Abnormal code = 00368-5) [facility] WITH [id number] 23:29:18 Test Item Value Reference Range Interpretation Comments WBC (test code = See_Comment L [Automated 6690-2) message] The [employer] MD stem which generated this result transmitted reference range : 4.30 - 11.10 10*3/?L. The reference range was not used to interpret this result as normal/abnormal . RBC (test code = See_Comment L [Automated 789-8) message] The sy stem which generated this result transmitted reference range : 3.93 - 5.25 10*6/?L. The reference range was not used to interpret this result as normal/abnormal . HGB (test code = 10.2 g/dL 11.6-15.0 L 718-7) HCT (test code = 31.6 % 35.7-45.2 L 4544-3) MCV (test code = 89.3 fL 80.6-95.5 787-2) MCH (test code = 28.8 pg 25.9-32.8 785-6) MCHC (test code = 32.3 g/dL 31.6-35.1 786-4) RDW-SD (test code = 40.5 fL 39.0-49.9 47852-4) RDW-CV (test code = 12.2 % 12.0-15.5 788-0) PLT (test code = See_Comment [Automated 777-3) message] The sy stem which generated this result transmitted reference range : 166 - 358 10*3/ ?L. The reference r luca was not used to interpret this result as normal/abnormal . MPV (test code = 9.8 fL 9.5-12.9 01095-5) NRBC/100 WBC (test See_Comment [Automat ed code = 9472491279) message] The system which generated this result transmitted reference range : 0.0 - 10.0 /100 WBCs. The refer ence range was not u sed to interpret th is result as normal/abnormal . NRBC x10^3 (test code <0.01 See_Comment [Auto mated = 8115924166) message] The s ystem which generated this result transmitted reference range : 10*3/?L. The reference range was not used to interpret this result as normal/abnormal . GRAN MAT (NEUT) % 72.0 % (test code = 770-8) IMM GRAN % (test code 0.20 % = 9271700733) LYMPH % (test code = 19.8 % 736-9) MONO % (test code = 6.4 % 5905-5) EOS % (test code = 1.4 % 713-8) BASO % (test code = 0.2 % 706-2) GRAN MAT x10^3(ANC) 3.06 10*3/uL 1.88-7.09 (test code = 7592718015) IMM GRAN x10^3 (test <0.03 0.00-0.06 code = 2777394301) LYMPH x10^3 (test code 0.84 10*3/uL 1.32-3.29 L = 731-0) MONO x10^3 (test code 0.27 10*3/uL 0.33-0.92 L = 742-7) EOS x10^3 (test code = 0.06 10*3/uL 0.03-0.39 711-2) BASO x10^3 (test code <0.03 0.01-0.07 = 704-7) Lab Interpretation Abnormal (test code = 24731-4) [facility]MR, ABDOMEN, [id number] 13:41:00Liver Protocol with ElastographyUnlisted Reason for Exam - Click Yes and Enter Reason Below->YesUnlisted Reason for Exam->[facility] 1960 Sex: FFINAL REPORT TECHNIQUE: MRI of the abdomen WITHOUT and WITH intravenouscontrast and MR elastography INDICATION: Liver disease, chronic portal hypertension assessment. COMPARISON: 10/14/2014. FINDINGS: Exam limited secondary to motion artifact. LOWER THORAX: Unremarkable. LIVER: Liver demonstrates mildly heterogeneous T2 signal. Liver demonstrates smooth contour. There aremultiple foci of arterial phase enhancement within the left hepatic lobe. Some of the peripheral lesions have mild associated capsular retraction. There is no corresponding washout or persistent enhancement on the delayed images. For instance at the junction of segments two and four, there is a 2 x 2.7 cm focus. (See arterial phase image 94)BILIARY: Prior cholecystectomy.. No biliary ductal dilation.There is mild pneumobilia..SPLEEN: Spleen is enlarged measuring 14 cm in length..PANCREAS: Pancreas demonstrates normal T1 signal intensity enhancement. There is mild pancreatic ductal dilation measuring up to 0.4 cm in the region of the pancreatic head. There is a unilocular cystic focus measuring 0.6 cm and uncinate. There is a second cystic focus in the pancreatic neck measuring 0.5 cm. No pancreatic mass.. ADRENALS: No adrenal nodules.KIDNEYS/URETERS: No hydronephrosis or solid mass lesions.0.9 cm cyst in the upper pole of the right kidney. There is mild multifocal cortical scarring of the right kidney. PERITONEUM/RETROPERITONEUM: No free fluid.LYMPH NODES: Few mildly enlarged periportal lymph nodes, likely.VESSELS: Portal vein, splenic vein and superior mesenteric vein are patent. Main portal vein measures 1.3 cm in diameter.. GI TRACT: No distention or wall thickening. BONES AND SOFT TISSU ES: Mild degenerative changes in the spine.. IMPRESSION: Exam limited by motion artifact.Heterogeneous T2 signal throughout the liver likely related [...] Follow-up MRI/MRCP in two years is suggested. References:*Stiffness threshold correlation to fibrosis based on meta-analysis by Chris, MRI Clin N Am 2014Hepatic Fat Fraction Thresholds based on Abdom Radiol 2020;45(3):661-671. Signed: Parul Saeed Verified Date/Time: 09/08/2020 13:41:30 Reading Location: [facility] B1 C013X Ortho Consult Reading Room PROTHROMBIN TIME/[id number] 04:34:00 Test Item Value Reference Range Interpretation Comments PROTIME (BEAKER) 11.7 seconds 11.9-14.2 L (test code = 759) INR (BEAKER) (test 0.88 See_Comment [Automat ed message] code = 370) The system [employer] generated this result transmitted ref erence range: <=5.90. The reference range was not used to int erpret this result as normal/abnormal . RECOMMENDED COUMADIN/WARFARIN INR THERAPY RANGESSTANDARD DOSE: 2.0 - 3.0 Includes: PROPHYLAXIS forvenous thrombosis, systemic embolization; TREATMENT for venous thrombosis and/or pulmonary embolus.HIGH RISK: Target INR is 2.5-3.5 for patients with mechanical heart valves.BASIC METABOLIC [id number] 04:51:00 Test Item Value Reference Range Interpretation [...] S NOT APPLICABLE FOR DIALYSIS PATIEN TS. Patient Access Specialist ID - ALAINA WHEPATIC FUNCTION [id number] 04:51:00 Test Item Value Reference Range Interpretation [...] code = 132 U/L 6-55 H 347) Patient Access Specialist ID - ALAINA [id number] 04:51:00 Test Item Value Reference Range Interpretation Comments LIPASE (BEAKER) (test code = 749) 115 U/L 8-78 H Patient Access Specialist ID - ALAINA WPROTHROMBIN TIME/[id number] 04:25:00 Test Item Value Reference Range Interpretation Comments PROTIME (BEAKER) 12.3 seconds 11.9-14.2 (test code = 759) INR (BEAKER) (test 0.94 See_Comment [Automat ed message] code = 370) The system [employer] generated this result transmitted ref erence range: <=5.90. The reference range was not used to int erpret this result as normal/abnormal . RECOMMENDED COUMADIN/WARFARIN INR THERAPY RANGESSTANDARD DOSE: 2.0 - 3.0 Includes: PROPHYLAXIS forvenous thrombosis, systemic embolization; TREATMENT for venous thrombosis and/or pulmonary embolus.HIGH RISK: Target INR is 2.5-3.5 for patients with mechanical heart valves.JASMEET, [id number] 08:00:00INTRA OP IMAGIN Reason for exam:->ercp [facility] : 1960 Sex: FFluoroscopic unit utilized for a procedure performed in the OR. No interpretation was requested. Refer to the operative report for findings. Refer to PACS for patient radiation dose information.SARS-COV2/RT-PCR ([facility])2020-09-06 06:35:00 Test Item Value Reference Range Interpretation Comments SARS-COV2/RT-PCR (test Negative Not Detected, Negative, code = 5062905) See external report for linked test SARS-COV-[address] [facility] (test code = 0760054) Negative result for this test determines that [...] the Simms SARS-CoV-2 assay.Fact Sheet for Healthcare Providers:https://www.[employer].simms/bertha/ IJ_OUAJ-EvV-6_MBA_Yrwi_Dpdxf_30-590950.pdfFact Sheet for Healthcare Patients:https://www.[employer].Driftrock narayan/bertha/NC_PPAW-BoO-7_Zoydgrh_Qylp_Axcok_YQ_03-968927K9.pdfPerforming Laboratory:[place] [place] [address] [place] [address] PROTHROMBIN TIME/[id number] 04:41:00 Test Item Value Reference Range Interpretation Comments PROTIME (BEAKER) 12.4 seconds 11.9-14.2 (test code = 759) INR (BEAKER) (test 0.95 See_Comment [Automat ed message] code = 370) The system [employer] generated this result transmitted ref erence range: <=5.90. The reference range was not used to int erpret this result as normal/abnormal . RECOMMENDED COUMADIN/WARFARIN INR THERAPY RANGESSTANDARD DOSE: 2.0 - 3.0 Includes: PROPHYLAXIS forvenous thrombosis, systemic embolization; TREATMENT for venous thrombosis and/or pulmonary embolus.HIGH RISK: Target INR is 2.5-3.5 for patients with mechanical heart valves.[id number] 14:40:00 Test Item Value Reference Range Interpretation Comments MAGNESIUM (BEAKER) 1.9 mg/dL 1.6-2.6 Specimen slightly (test code = 627) hemolyzed Patient Access Specialist HONG - MIGDALIA FBASIC METABOLIC [id number] 14:40:00 Test Item Value Reference Range Interpretation [...] S NOT APPLICABLE FOR DIALYSIS PATIEN TS. Patient Access Specialist ID Ryan NEGRON FHEPATIC FUNCTION [id number] 14:40:00 Test Item Value Reference Range Interpretation [...] Specimen slightly (test code = 347) hemolyzed Patient Access Specialist ID Ryan NEGRON [id number] 14:40:00 Test Item Value Reference Range Interpretation Comments LIPASE (BEAKER) (test code = 749) 446 U/L 8-78 H Patient Access Specialist ID Ryan NEGRON FCBC W/PLT COUNT & AUTO [id number] 14:14:00 Test Item Value Reference Range Interpretation [...] 0-1 PERCENT (BEAKER) (test code = 2801) [place], [id number] 08:35:00Reason for exam:->abnormal imaging [facility] : 1960 Sex: FFluoroscopic unit utilized for a procedure performed in the OR. No interpretation was requested. Refer to the operative report for findings. Refer to PACS for patient radiation dose information.[id number] 06:42:00 Test Item Value Reference Range Interpretation Comments MAGNESIUM (BEAKER) (test code = 1.8 mg/dL 1.6-2.6 627) Patient Access Specialist ID - [id number] 06:42:00 Test Item Value Reference Range Interpretation Comments PHOSPHORUS (BEAKER) (test code = 3.4 mg/dL 2.3-4.7 604) Patient Access Specialist ID - EDASIHEPATIC FUNCTION [id number] 06:42:00 Test Item Value Reference Range Interpretation [...] code = 89 U/L 6-55 H 347) Patient Access Specialist ID - EDASIBASIC METABOLIC [id number] 06:42:00 Test Item Value Reference Range Interpretation [...] S NOT APPLICABLE FOR DIALYSIS PATIEN TS. Patient Access Specialist ID - EDASICBC W/PLT COUNT & AUTO [id number] 05:27:00 Test Item Value Reference Range Interpretation [...] PERCENT (BEAKER) (test code = 2801) SARS-COV2/RT-PCR ([facility])2020-08-26 12:43:00 Test Item Value Reference Range Interpretation Comments SARS-COV2/RT-PCR (test Negative Not Detected, Negative, code = 8937115) See external report for linked test SARS-COV-2 PERFORMING LAB [facility] (test code = 4841515) Negative result for this test determines that [...] 564(g) of the Act.Fact Sheet for Healthcare Providers:https://www.[employer]/sites/default/files/product/documents/Fact_Shee c_JI_Byykcrkyi_Wvua_SOYC-HcM-5.pdfFact Sheet for Healthcare Patients:https://www.[employer]/sites/default/files/product/ documents/Rnzq_Cixgx_Vbbyjcox_Blmi_QYYU-NmM-0.pdfPerforming Laboratory:[place] [address], [place] [address]SHOJE METABOLIC PANEL 2020-08-26 06:19:00 Test Item Value [...] S NOT APPLICABLE FOR DIALYSIS PATIEN TS. Patient Access Specialist ID - DONNA [id number] 06:19:00 Test Item Value Reference Range Interpretation Comments MAGNESIUM (BEAKER) (test code = 1.8 mg/dL 1.6-2.6 627) Patient Access Specialist ID - DONNA LHEPATIC FUNCTION [id number] 06:19:00 Test Item Value Reference Range Interpretation [...] code = 82 U/L 6-55 H 347) Patient Access Specialist ID - DONNA LCBC W/PLT COUNT & AUTO [id number] 05:37:00 Test Item Value Reference Range Interpretation [...] 0-1 PERCENT (BEAKER) (test code = 2801) [place] TIME OR (NON-REPORTABLE)2020-07-18 13:25:02These images do not require a Radiology diagnostic report.[facility] OR (NON-REPORTABLE)2020-07-18 13:25:02These images do not require a Radiology diagnostic report.[facility] GLUCOSE (AUTOMATED) 2020-07-18 12:07:46 Test Item Value Reference Range Interpretation Comments POCT GLU (test code = 3682199425) 98 mg/dL 70-110 Lab Interpretation (test code = Normal 24896-2) [facility] GLUCOSE (AUTOMATED)2020-07-18 12:07:46 Test Item Value Reference Range Interpretation Comments POCT GLU (test code = 6047069143) 98 mg/dL 70-110 Lab Interpretation (test code = Normal 43912-5) [facility]CT [facility]EN PELVIS W [id number] 01:39:22 1. ?No acute obstruction or inflammation in the abdomen or pelvis. 2. Appendix removed. 3. No adnexal mass. 4. There is abundant stool throughout the colon. RL: 1105 HISTORY: ?Abdominal abscess/infection suspected COMPARISON:none TECHNIQUE:CT scan of the abdomen and pelvis performed. Contiguous axial CT imageswere obtained after administration of intravenous contrast. ?CT scan doneaccording to ALARA. Technical quality: Technical quality: adequate. FINDINGS: Lung bases are clear. Fatty liver infiltration noted. Gallbladder removed. Pneumobilia is noted.There is no biliary dilatation. There is no inflammation around thepancreas. The spleen enlarged measuring 14 cm. There is no adrenal nodule. The kidneys demonstrate symmetric nephrograms. There is no hydronephrosis.There is no retroperitoneal or mesenteric adenopathy. There is no bowel obstruction or inflammation. The appendix has beenremoved. There is a large amount of stool in the colon. There is no adnexal mass. No destructive bony process is seen. [facility], Radiant Results Inft User - 07/07/2020 8:40 PM CDTHISTORY: Abdominal abscess/infection suspected COMPARISON:noneTECHNIQUE:CT scan of the abdomen and pelvis performed. Contiguous axial CT imageswere obtained after administration of intravenous contrast. CT scan doneaccording to ALARA. Technical quality: Technical quality: adequate.FINDINGS:Lung bases are clear.Fatty liver infiltration noted. Gallbladder removed. Pneumobilia is noted.There is no biliary dilatation. There is no inflammation around thepancreas. The spleen enlarged measuring 14 cm.There is no adrenal nodule.The kidneys demonstrate symmetric nephrograms. There is no hydronephrosis.There is no retroperitoneal or mesenteric adenopathy.There is no bowel obstruction or inflammation. The appendix has beenremoved. There is a large amount of stool in the colon.There is no adnexal mass.No destructive bony process is seen.IMPRESSION1. No acute obstruction or inflammation in the abdomen or pelvis.2. Appendix removed.3. No adnexal mass.4. There is abundant stoolthroughout the colon.RL: 1105 [facility] HospitalCOLBY [id number] 00:55:45 Test Item Value Reference Range Interpretation Comments TROPONIN I (test 0.002 ng/mL See_Comment [Automated code = 7475480838) message] The system which generated this result transmitted reference range : <=0.034. The reference range was not used to interpret this result as normal/abnormal . KIM (test code = Equal or Less than KIM) 0.034 ng/ml---Normal ?Note: Cardiac troponin begins to rise 3-4 hours after the onset of ischemia. Repeat in 4-6 hours if the sample was drawn within 3-4 hours of the onset of the symptom and found normal. Between 0.035 and 0.120 ng/mL--- Borderline. Questionable myocardial injury or necrosis ? ?Note: Serial measurement may be necessary to confirm or exclude the diagnosis of myocardial injury or necrosis; Clinical correlation (symptoms, EKGs, imaging studies, and others) required; Repeat in 4-6 hours if clinically indicated. ? Equal or Higher than 0.121 ng/mL---Abnormal. Myocardial Injury or Necrosis Likely ? Biotin has been reported to cause a negative bias, interpret results relative to patient's use of biotin. ? Lab Interpretation Normal (test code = 96979-1) [facility]COVID[facility] (ID NOW RAPID TESTING)2020-07-08 00:47:04 Test Item Value Reference Range Interpretation Comments SARS-CoV-2 Rapid ID NOW Not Detected Not Detected (test code = 42116-3) KMI (test code = KIM) ID NOW COVID-19 Assay is an isothermal nucleic acid amplification test intended for the qualitative detection of nucleic acid from SARS-CoV-2 viral RNA in nasopharyngeal (ENGLISH LANGUAGE LEARNER TEACHER) specimens. It is used under Emergency Use Authorization (EUA) by FDA. The limit of detection (LOD) of the assay is 125 Genome Equivalents/mL. A positive result is indicative of the presence of SARS-CoV-2 RNA. ?Clinical correlation with patient history and other diagnostic [...] for repeat patient testing if clinically indicated. Lab Interpretation Normal (test code = 88686-7) [facility]landMAGNESIUM2021-03-26 00:45:06 Test Item Value Reference Range Interpretation Comments MAGNESIUM (test code = 5920920903) 2.0 mg/dL 1.7-2.4 Lab Interpretation (test code = Normal 37151-5) [facility]. METABOLIC PANEL (06842)2020-07-08 00:44:41 Test Item Value Reference Range Interpretation Comments NA (test code = 139 mmol/L 135-145 4773641551) K (test code = 4.4 mmol/L 3.5-5.0 4825942413) CL (test code = 108 mmol/L 98-108 8380197563) CO2 TOTAL (test code = 23 mmol/L 23-31 5155963303) AGAP (test code = 2-16 9157720380) BUN (test code = 22 mg/dL 7-23 5953606744) GLUCOSE (test code = 107 mg/dL 70-110 7194082267) CREATININE (test code = 0.62 mg/dL 0.50-1.04 6931733933) TOTAL BILI (test code = 0.9 mg/dL 0.1-1.2 7240647109) CALCIUM (test code = 10.0 mg/dL 8.6-10.6 4887185189) T PROTEIN (test code = 8.3 g/dL 6.3-8.2 H 1238868779) ALBUMIN (test code = 4.8 g/dL 3.5-5.0 1893813661) ALK PHOS (test code = 1085 U/L 34-122 H 9298592358) ALTv (test code = 383 U/L 5-35 H 1742-6) AST(SGOT) (test code = 217 U/L 13-40 H 9834702567) eGFR Calculation mL/min/1.73m2 (Non-) (test code = 5117479706) eGFR Calculation mL/min/1.73m2 () (test code = 2150754185) KIM (test code = KIM) Association of Glomerular Filtration Rate (GFR) and Staging of Kidney Disease* + --+ --+ ------+| GFR (mL/min/1.73 m2) ?| With Kidney Damage ?| ?Without Kidney Damage+ --------+ --------+ +| ?>90 ?| ?Stage one ?| ? Normal ?+ ---+ ---+ -------+| ?60-89 ?| ?Stage two ?| ? Decreased GFR ? + --+ --+ ------+| ?30-59 ?| ?Stage three ?| ? Stage three ? + --+ --+ ------+| ?15-29 ?| ?Stage four ? | ? Stage four ?+ ---+ ---+ -------+| ?<15 (or dialysis) ? ?| ?Stage five ? | ? Stage five ?+ ---+ ---+ -------+ *Each stage assumes the associated GFR level has been in effect for at least three months. ?Stages 1 to 5, with or without kidney disease, indicate chronic kidney disease. Notes: Determination of stages one and two (with eGFR >59mL/min/1.73 m2) requires estimation of kidney damage for at least three months as defined by structural or functional abnormalities of the kidney, manifested by either:Pathological abnormalities or Markers of kidney damage (including abnormalities in the composition of the blood or urine or abnormalities in imaging tests). Lab Interpretation Abnormal (test code = 44195-7) [facility]41 Test Item Value Reference Range Interpretation Comments LIPASE (test code = 2680042015) 131 U/L 0-220 Lab Interpretation (test code = Normal 64404-8) [facility] 00:38:06 Test Item Value Reference Range Interpretation Comments APPEARANCE (test code = Clear Clear 5011359094) COLOR (test code = Yellow Yellow 5234874508) PH (test code = 4.8-8.0 0802856863) SP GRAVITY (test code = 1.003-1.030 7473755384) GLU U QUAL (test code = Normal Normal 9615652020) BLOOD (test code = Negative Negative 0900429489) KETONES (test code = Negative Negative 6606401021) PROTEIN (test code = Negative Negative 2887-8) UROBILIN (test code = 4.0 mg/dL Normal A 9770150856) BILIRUBIN (test code = Negative Negative 3321182705) NITRITE (test code = Negative Negative 8846521422) LEUK NICHOLE (test code = Negative Negative 6676694708) RBC/HPF (test code = <1 See_Comment [Autom ated message] 0460958140) The system [employer] generated this result transmit gulshan reference range : 0 - 3 HPF. The refe rence range was not u sed to interpret th is result as normal/abnormal . WBC/HPF (test code = See_Comment [Autom ated message] 1770758836) The system [employer] generated this result transmit gulshan reference range : 0 - 5 HPF. The refe rence range was not u sed to interpret th is result as normal/abnormal . BACTERIA (test code = Few Negative A 2772889424) MUCOUS (test code = Slight Negative LPF A 5284185096) SQ EPITH (test code = HPF 7825680902) Lab Interpretation (test Abnormal code = 15935-0) [facility] WITH [id number] 00:32:00 Test Item Value Reference Range Interpretation Comments WBC (test code = See_Comment [Automated 7590-2) message] The sy stem which generated this result transmitted reference range : 4.30 - 11.10 10*3/?L. The reference range was not used to interpret this result as normal/abnormal . RBC (test code = See_Comment [Automated 889-8) message] The sy stem which generated this result transmitted reference range : 3.93 - 5.25 10*6/?L. The reference range was not used to interpret this result as normal/abnormal . HGB (test code = 11.3 g/dL 11.6-15.0 L 718-7) HCT (test code = 35.5 % 35.7-45.2 L 4544-3) MCV (test code = 90.1 fL 80.6-95.5 787-2) MCH (test code = 28.7 pg 25.9-32.8 785-6) MCHC (test code = 31.8 g/dL 31.6-35.1 786-4) RDW-SD (test code = 48.1 fL 39.0-49.9 62993-4) RDW-CV (test code = 14.5 % 12.0-15.5 788-0) PLT (test code = See_Comment [Automated 777-3) message] The sy stem which generated this result transmitted reference range : 166 - 358 10*3/ ?L. The reference r luca was not used to interpret this result as normal/abnormal . MPV (test code = 9.5 fL 9.5-12.9 31482-0) NRBC/100 WBC (test See_Comment [Automat ed code = 0787111985) message] The system which generated this result transmitted reference range : 0.0 - 10.0 /100 WBCs. The refer ence range was not u sed to interpret th is result as normal/abnormal . NRBC x10^3 (test code <0.01 See_Comment [Auto mated = 4785988938) message] The s ystem which generated this result transmitted reference range : 10*3/?L. The reference range was not used to interpret this result as normal/abnormal . GRAN MAT (NEUT) % 78.2 % (test code = 770-8) IMM GRAN % (test code 0.60 % = 0132967761) LYMPH % (test code = 11.9 % 736-9) MONO % (test code = 8.3 % 5905-5) EOS % (test code = 0.5 % 713-8) BASO % (test code = 0.5 % 706-2) GRAN MAT x10^3(ANC) 7.55 10*3/uL 1.88-7.09 H (test code = 3112459759) IMM GRAN x10^3 (test 0.06 10*3/uL 0.00-0.06 code = 1649244263) LYMPH x10^3 (test code 1.15 10*3/uL 1.32-3.29 L = 731-0) MONO x10^3 (test code 0.80 10*3/uL 0.33-0.92 = 742-7) EOS x10^3 (test code = 0.05 10*3/uL 0.03-0.39 711-2) BASO x10^3 (test code 0.05 10*3/uL 0.01-0.07 = 704-7) Lab Interpretation Abnormal (test code = 91929-3) [facility] TIME OR (NON-REPORTABLE)2020-07-04 13:40:03 These images do not require a Radiology diagnostic report.[facility] TIME OR (NON-REPORTABLE)2020-06-20 14:58:12These images do not require a Radiology diagnostic report.[facility] Metabolic Panel (NA, K, CL, CO2, GLUCOSE, BUN, CREATININE, CA)2020-05-06 23:29:00 Test Item Value Reference Range Interpretation Comments NA (test code = 138 mmol/L 135-145 3435166404) K (test code = 4.4 mmol/L 3.5-5 9421964530) CL (test code = 108 mmol/L 98-108 4696059511) CO2 TOTAL (test code = 20 mmol/L 23-31 L 5764964780) AGAP (test code = 2-16 8253973474) BUN (test code = 18 mg/dL 7-23 5658045342) GLUCOSE (test code = 90 mg/dL 70-110 2358550945) CREATININE (test code = 0.68 mg/dL 0.5-1.04 7512557669) CALCIUM (test code = 9.1 mg/dL 8.6-10.6 7700642413) eGFR Calculation mL/min/1.73m2 (Non-) (test code = 3233512020) eGFR Calculation mL/min/1.73m2 () (test code = 1016024337) KIM (test code = KIM) Association of Glomerular Filtration Rate (GFR) and Staging of Kidney Disease* + --+ --+ ------+| GFR (mL/min/1.73 m2) ?| With Kidney Damage ?| ?Without Kidney Damage+ --------+ --------+ +| ?>90 ?| ?Stage one ?| ? Normal ?+ ---+ ---+ -------+| ?60-89 ?| ?Stage two ?| ? Decreased GFR ? + --+ --+ ------+| ?30-59 ?| ?Stage three ?| ? Stage three ? + --+ --+ ------+| ?15-29 ?| ?Stage four ? | ? Stage four ?+ ---+ ---+ -------+| ?<15 (or dialysis) ? ?| ?Stage five ? | ? Stage five ?+ ---+ ---+ -------+ *Each stage assumes the associated GFR level has been in effect for at least three months. ?Stages 1 to 5, with or without kidney disease, indicate chronic kidney disease. Notes: Determination of stages one and two (with eGFR >59mL/min/1.73 m2) requires estimation of kidney damage for at least three months as defined by structural or functional abnormalities of the kidney, manifested by either:Pathological abnormalities or Markers of kidney damage (including abnormalities in the composition of the blood or urine or abnormalities in imaging tests). Lab Interpretation Abnormal (test code = 33671-0) [facility] (ALB, T.PRO, BILI T, BU/BC, ALT, AST, ALK PHOS)2020-05-06 23:28:00 Test Item Value Reference Range Interpretation Comments TOTAL BILI (test code = 6532373627) 1.1 mg/dL 0.1-1.1 BILI UNCON (test code = 7295307275) 0.4 mg/dL 0.1-1.1 BILI CONJ (test code = 7485963640) 0.0 mg/dL 0-0.3 T PROTEIN (test code = 9619443505) 7.9 g/dL 6.3-8.2 ALBUMIN (test code = 7168565029) 4.4 g/dL 3.5-5 ALK PHOS (test code = 0746968858) 984 U/L 34-122 H ALTv (test code = 1742-6) 218 U/L 5-35 H AST(SGOT) (test code = 6172046538) 133 U/L 13-40 H Lab Interpretation (test code = Abnormal 46402-4) [facility]rop[facility] [id number] 22:19:00 Test Item Value Reference Range Interpretation Comments TROPONIN I (test 0.021 ng/mL See_Comment [Automated code = 3731031379) message] The system which generated this result transmitted reference range : <=0.034. The reference range was not used to interpret this result as normal/abnormal . KIM (test code = Equal or Less than KIM) 0.034 ng/ml---Normal ?Note: Cardiac troponin begins to rise 3-4 hours after the onset of ischemia. Repeat in 4-6 hours if the sample was drawn within 3-4 hours of the onset of the symptom and found normal. Between 0.035 and 0.120 ng/mL--- Borderline. Questionable myocardial injury or necrosis ? ?Note: Serial measurement may be necessary to confirm or exclude the diagnosis of myocardial injury or necrosis; Clinical correlation (symptoms, EKGs, imaging studies, and others) required; Repeat in 4-6 hours if clinically indicated. ? Equal or Higher than 0.121 ng/mL---Abnormal. Myocardial Injury or Necrosis Likely ? Biotin has been reported to cause a negative bias, interpret results relative to patient's use of biotin. ? Lab Interpretation Normal (test code = 12940-1) [facility]OVID[facility] (ID NOW RAPID TESTING)2020-05-06 22:13:00 Test Item Value Reference Range Interpretation Comments SARS-CoV-2 Rapid ID NOW Not Detected Not Detected (test code = 07246-8) KIM (test code = KIM) ID NOW COVID-19 Assay is an isothermal nucleic acid amplification test intended for the qualitative detection of nucleic acid from SARS-CoV-2 viral RNA in nasopharyngeal (ENGLISH LANGUAGE LEARNER TEACHER) specimens. It is used under Emergency Use Authorization (EUA) by FDA. The limit of detection (LOD) of the assay is 125 Genome Equivalents/mL. A positive result is indicative of the presence of SARS-CoV-2 RNA. ?Clinical correlation with patient history and other diagnostic [...] for repeat patient testing if clinically indicated. Lab Interpretation Normal (test code = 15639-7) [facility]land[facility]inalysis2021-01-22 22:09:00 Test Item Value Reference Range Interpretation Comments APPEARANCE (test code = Clear Clear 3183394583) COLOR (test code = Yellow Yellow 1610616945) PH (test code = 4.8-8.0 4798920816) SP GRAVITY (test code = 1.003-1.030 5747249832) GLU U QUAL (test code = Normal Normal 6567485278) BLOOD (test code = Negative Negative INTERFERE NCE FROM 3894680974) ASCORBIC ACID M AY CAUSE FALSE NEG ATIVE RESULT KETONES (test code = Negative Negative 0212972905) PROTEIN (test code = Negative Negative 2887-8) UROBILIN (test code = 2.0 mg/dL Normal A 1653676206) BILIRUBIN (test code = Negative Negative 3032601069) NITRITE (test code = Negative Negative 3349006587) LEUK NICHOLE (test code = Negative Negative 2922275769) RBC/HPF (test code = See_Comment [Autom ated message] 7258040242) The system [employer] generated this result transmitted ref erence range: 0 - 3 HP F. The reference range was not used to int erpret this result as normal/abnormal . WBC/HPF (test code = See_Comment [Autom ated message] 9301132802) The system [employer] generated this result transmitted ref erence range: 0 - 5 HP F. The reference range was not used to int erpret this result as normal/abnormal . BACTERIA (test code = Few Negative A 7811980404) SQ EPITH (test code = HPF 1785259300) HYAL CAST (test code = See_Comment [Aut omated message] 3317108736) The system [employer] generated this result transmitted ref erence range: <=2 LPF. The reference range was not used to int erpret this result as normal/abnormal . Lab Interpretation Abnormal (test code = 96233-6) [facility]landLipase [id number] 22:08:00 Test Item Value Reference Range Interpretation Comments LIPASE (test code = 1005551725) 114 U/L 0-220 Lab Interpretation (test code = Normal 14495-7) [facility] with [id number] 22:02:00 Test Item Value Reference Range Interpretation Comments WBC (test code = See_Comment [Automated 6690-2) message] The sy stem which generated this result transmitted reference range : 4.30 - 11.10 10*3/?L. The reference range was not used to interpret this result as normal/abnormal . RBC (test code = See_Comment [Automated 789-8) message] The sy stem which generated this result transmitted reference range : 3.93 - 5.25 10*6/?L. The reference range was not used to interpret this result as normal/abnormal . HGB (test code = 11.9 g/dL 11.6-15 718-7) HCT (test code = 36.4 % 35.7-45.2 4544-3) MCV (test code = 90.3 fL 80.6-95.5 787-2) MCH (test code = 29.5 pg 25.9-32.8 785-6) MCHC (test code = 32.7 g/dL 31.6-35.1 786-4) RDW-SD (test code = 41.0 fL 39-49.9 47415-4) RDW-CV (test code = 12.4 % 12-15.5 788-0) PLT (test code = See_Comment [Automated 777-3) message] The sy stem which generated this result transmitted reference range : 166 - 358 10*3/ ?L. The reference r luca was not used to interpret this result as normal/abnormal . MPV (test code = 10.5 fL 9.5-12.9 10190-1) NRBC/100 WBC (test See_Comment [Automat ed code = 8100831458) message] The system which generated this result transmitted reference range : 0.0 - 10.0 /100 WBCs. The refer ence range was not u sed to interpret th is result as normal/abnormal . NRBC x10^3 (test code <0.01 See_Comment [Auto mated = 8933309358) message] The s ystem which generated this result transmitted reference range : 10*3/?L. The reference range was not used to interpret this result as normal/abnormal . GRAN MAT (NEUT) % 71.8 % (test code = 770-8) IMM GRAN % (test code 0.10 % = 7033052572) LYMPH % (test code = 19.0 % 736-9) MONO % (test code = 6.2 % 5905-5) EOS % (test code = 2.2 % 713-8) BASO % (test code = 0.7 % 706-2) GRAN MAT x10^3(ANC) 4.83 10*3/uL 1.88-7.09 (test code = 2055275060) IMM GRAN x10^3 (test <0.03 0-0.06 code = 5750387309) LYMPH x10^3 (test code 1.28 10*3/uL 1.32-3.29 L = 731-0) MONO x10^3 (test code 0.42 10*3/uL 0.33-0.92 = 742-7) EOS x10^3 (test code = 0.15 10*3/uL 0.03-0.39 711-2) BASO x10^3 (test code 0.05 10*3/uL 0.01-0.07 = 704-7) Lab Interpretation Abnormal (test code = 23421-4) [facility] 1 [id number] 21:48:28Findings and Impression: ?Subcentimeter calcified granuloma projecting overthe right upper lobe, unchanged. Lungs are otherwise clear. No pleuraleffusion or pneumothorax. Heart size is normal to mildlyenlarged. No acuteosseous abnormalities. PORTABLE CHEST RADIOGRAPH History: chest tightness Comparison: 01/31/2020 TECHNIQUE: AP view of the chest. [facility], Radiant Results Inft User - 05/06/2020 3:49 PM CSTPORTABLE CHEST RADIOGRAPHHistory: chest tightness Comparison: 01/31/2020TECHNIQUE: AP view of the chest.IMPRESSIONFindings and Impression: Subcentimeter calcified granuloma projecting overthe right upper lobe, unchanged. Lungs are otherwise clear. No pleuraleffusion or pneumothorax. Heart size is normal to mildly enlarged. No acuteosseous abnormalities.[facility]landUrinalysis2020-12-12 05:27:00 Test Item Value Reference Range Interpretation Comments APPEARANCE (test code Slightly Cloudy Clear A = 6023194093) COLOR (test code = Yellow Yellow 3627238150) PH (test code = 4.8-8.0 6281593348) SP GRAVITY (test code >=1.030 1.003-1.030 = 3442516248) GLU U QUAL (test code Negative Negative = 3642895806) BLOOD (test code = Trace Negative A 4160652317) KETONES (test code = Negative Negative 7961201797) PROTEIN (test code = Negative Negative 2887-8) UROBILIN (test code = 1.0 mg/dL See_Comment [Auto mated 5911331579) message] The system which generated this result transmit gulshan reference range : 0-1.0 mg/dL. Th e reference range was not used to interpret this result as normal/abnormal . BILIRUBIN (test code Small Negative A = 5408335403) NITRITE (test code = Negative Negative 6490084009) LEUK NICHOLE (test code Trace Negative A = 4573286119) RBC/HPF (test code = See_Comment [Autom ated 8568381718) message] The system which generated this result transmit gulshan reference range : 0 - 3 HPF. The reference range was not used to interpret this result as normal/abnormal . WBC/HPF (test code = See_Comment [Autom ated 4349985158) message] The system which generated this result transmit gulshan reference range : 0 - 5 HPF. The reference range was not used to interpret this result as normal/abnormal . BACTERIA (test code = Few Negative A 9049472024) AMORPHOUS (test code Few Rare HPF A = 5034809683) SQ EPITH (test code = HPF 6928771455) Lab Interpretation Abnormal (test code = 16616-2) [facility] (ID NOW RAPID TESTING)2020-03-26 04:39:00 Test Item Value Reference Range Interpretation Comments SARS-CoV-2 Rapid ID NOW Not Detected Not Detected (test code = 01440-5) KIM (test code = KIM) ID NOW COVID-19 Assay is an isothermal nucleic acid amplification test intended for the qualitative detection of nucleic acid from SARS-CoV-2 viral RNA in nasopharyngeal (ENGLISH LANGUAGE LEARNER TEACHER) specimens. It is used under Emergency Use Authorization (EUA) by FDA. The limit of detection (LOD) of the assay is 125 Genome Equivalents/mL. A positive result is indicative of the presence of SARS-CoV-2 RNA. ?Clinical correlation with patient history and other diagnostic [...] for repeat patient testing if clinically indicated. Lab Interpretation Normal (test code = 69759-7) [facility] Metabolic [id number] 04:12:00 Test Item Value Reference Range Interpretation Comments NA (test code = 139 mmol/L 135-145 8647087456) K (test code = 4.5 mmol/L 3.5-5 1794415237) CL (test code = 108 mmol/L 98-108 5377998226) CO2 TOTAL (test code = 22 mmol/L 23-31 L 2799844457) AGAP (test code = 2-16 6543567607) BUN (test code = 17 mg/dL 7-23 7056478717) GLUCOSE (test code = 102 mg/dL 70-110 3339212912) CREATININE (test code = 0.96 mg/dL 0.5-1.04 6075148383) TOTAL BILI (test code = 0.7 mg/dL 0.1-1.2 1159973750) CALCIUM (test code = 9.3 mg/dL 8.6-10.6 9839785182) T PROTEIN (test code = 7.3 g/dL 6.3-8.2 5423190367) ALBUMIN (test code = 4.1 g/dL 3.5-5 0866291214) ALK PHOS (test code = 675 U/L 34-122 H 1278226031) ALTv (test code = 115 U/L 5-35 H 1742-6) AST(SGOT) (test code = 100 U/L 13-40 H 9453549771) eGFR Calculation mL/min/1.73m2 (Non-) (test code = 5395177593) eGFR Calculation mL/min/1.73m2 () (test code = 4330020950) KIM (test code = KIM) Association of Glomerular Filtration Rate (GFR) and Staging of Kidney Disease* + --+ --+ ------+| GFR (mL/min/1.73 m2) ?| With Kidney Damage ?| ?Without Kidney Damage+ --------+ --------+ +| ?>90 ?| ?Stage one ?| ? Normal ?+ ---+ ---+ -------+| ?60-89 ?| ?Stage two ?| ? Decreased GFR ? + --+ --+ ------+| ?30-59 ?| ?Stage three ?| ? Stage three ? + --+ --+ ------+| ?15-29 ?| ?Stage four ? | ? Stage four ?+ ---+ ---+ -------+| ?<15 (or dialysis) ? ?| ?Stage five ? | ? Stage five ?+ ---+ ---+ -------+ *Each stage assumes the associated GFR level has been in effect for at least three months. ?Stages 1 to 5, with or without kidney disease, indicate chronic kidney disease. Notes: Determination of stages one and two (with eGFR >59mL/min/1.73 m2) requires estimation of kidney damage for at least three months as defined by structural or functional abnormalities of the kidney, manifested by either:Pathological abnormalities or Markers of kidney damage (including abnormalities in the composition of the blood or urine or abnormalities in imaging tests). Lab Interpretation Abnormal (test code = 05000-0) [facility], [id number] 04:11:00 Test Item Value Reference Range Interpretation Comments LIPASE (test code = 6342837150) 171 U/L 0-220 Lab Interpretation (test code = Normal 80583-0) [facility]landCB with [id number] 03:56:00 Test Item Value Reference Range Interpretation Comments WBC (test code = See_Comment [Automated 1427-2) message] The sy stem which generated this result transmitted reference range : 4.30 - 11.10 10*3/?L. The reference range was not used to interpret this result as normal/abnormal . RBC (test code = See_Comment L [Automated 713-8) message] The sy stem which generated this result transmitted reference range : 3.93 - 5.25 10*6/?L. The reference range was not used to interpret this result as normal/abnormal . HGB (test code = 9.1 g/dL 11.6-15 L 718-7) HCT (test code = 28.9 % 35.7-45.2 L 4544-3) MCV (test code = 97.3 fL 80.6-95.5 H 787-2) MCH (test code = 30.6 pg 25.9-32.8 785-6) MCHC (test code = 31.5 g/dL 31.6-35.1 L 786-4) RDW-SD (test code = 47.5 fL 39-49.9 80269-4) RDW-CV (test code = 13.3 % 12-15.5 788-0) PLT (test code = See_Comment [Automated 777-3) message] The sy stem which generated this result transmitted reference range : 166 - 358 10*3/ ?L. The reference r luca was not used to interpret this result as normal/abnormal . MPV (test code = 9.4 fL 9.5-12.9 L 08120-2) NRBC/100 WBC (test See_Comment [Automat ed code = 6723578590) message] The system which generated this result transmitted reference range : 0.0 - 10.0 /100 WBCs. The refer ence range was not u sed to interpret th is result as normal/abnormal . NRBC x10^3 (test code <0.01 See_Comment [Auto mated = 1868868654) message] The s ystem which generated this result transmitted reference range : 10*3/?L. The reference range was not used to interpret this result as normal/abnormal . GRAN MAT (NEUT) % 67.1 % (test code = 770-8) IMM GRAN % (test code 0.70 % = 4280109826) LYMPH % (test code = 22.2 % 736-9) MONO % (test code = 6.4 % 5905-5) EOS % (test code = 2.9 % 713-8) BASO % (test code = 0.7 % 706-2) GRAN MAT x10^3(ANC) 3.69 10*3/uL 1.88-7.09 (test code = 2655707601) IMM GRAN x10^3 (test 0.04 10*3/uL 0-0.06 code = 2089205503) LYMPH x10^3 (test code 1.22 10*3/uL 1.32-3.29 L = 731-0) MONO x10^3 (test code 0.35 10*3/uL 0.33-0.92 = 742-7) EOS x10^3 (test code = 0.16 10*3/uL 0.03-0.39 711-2) BASO x10^3 (test code 0.04 10*3/uL 0.01-0.07 = 704-7) Lab Interpretation Abnormal (test code = 99929-6) [facility]landMR BRAIN WO [id number] 17:24:06 Impression: 1. ?Normal MRI brain. 2. ?Mastoid effusions. 3. ?Right petrous apex effusion.Exam: MR BRAIN WO CONTRAST Clinical History: Stroke suspected, focal neuro deficit, > 6 hrs Technique:Routine MR brain without contrast Comparison: CT brain dated 02/01/2020 Findings: Diffusion-weighted images are normal. No acute infarction isidentified. Bilateral mastoid effusions are present. Minimal right petrous apex fluid. A single focus of T2 hyperintensities noted in the right posterior frontalsubcortical region. No other focal signal abnormality is identifiedelsewhere in the brain. The brainstem and cerebellum are normal. The intracranial flow voids are normal. The gradient-echo images do not demonstrate any evidence of intracranialhemorrhage. [facility], Radiant Results Inft User - 02/08/2020 12:25 PM CDTExam: MR BRAIN WO CONTRASTClinical History: Stroke suspected, focal neuro deficit, > 6 hrs Technique:Routine MR brain without contrastComparison: CT brain dated 02/01/2020Findings: Diffusion-gama ghted images are normal. No acute infarction isidentified.Bilateral mastoid effusions are present. Minimal right petrous apex fluid.A single focus of T2 hyperintensities noted in the right posterior frontalsubcortical region. No other focal signal abnormality is identifiedelsewhere in the brain. The br ainstem and cerebellum are normal.The intracranial flow voids are normal.The gradient-echo images donot demonstrate any evidence of intracranialhemorrhage. IMPRESSIONImpression:1. Normal MRI brain.2. Mastoid effusions.3. Right petrous apex effusion.[facility] CULTURE [id number] 21:10:00 Test Item Value Reference Range Interpretation Comments Blood Culture-Aerobic Culture positive. No growth AA P revious (test code = 26892-9) See Blood prelim inary Culture Workup verified resu lt for additional was Culture I n information. Progress on 02/02/2020 at 1901 CDT Blood No organisms No growth Previous Culture-Anaerobic isolated preliminar y (test code = 99364-9) verifi ed result was Culture In Progress on 02/03/2020 at 1314 CDT Lab Interpretation Abnormal (test code = 98562-1) [facility] CULTURE [id number] 21:01:00 Test Item Value Reference Range Interpretation Comments Blood Culture-Aerobic No organisms No growth Previo us (test code = 86522-8) isolated prelim inary verified result was Culture In Progress on 02/02/2020 at 1901 CDTPreviou s preliminary verified result was No growth a t 24 hours on 02/03/2020 at 1601 CDTPreviou s preliminary verified result was No growth a t 48 hours on 02/04/2020 at 1601 CDTPreviou s preliminary verified result was No growth a t 72 hours on 02/05/2020 at 1601 CDT Blood No organisms No growth Previous Culture-Anaerobic isolated preliminar y (test code = 78804-5) verifi ed result was Culture In Progress on 02/02/2020 at 1901 CDTPreviou s preliminary verified result was No growth a t 24 hours on 02/03/2020 at 1601 CDTPreviou s preliminary verified result was No growth a t 48 hours on 02/04/2020 at 1601 CDTPreviou s preliminary verified result was No growth a t 72 hours on 02/05/2020 at 1601 CDT Lab Interpretation Normal (test code = 87973-8) [facility] (NA, K, CL, CO2, GLUCOSE, BUN, CREATININE, CA)2020-02-07 09:09:00 Test Item Value Reference Range Interpretation Comments NA (test code = 136 mmol/L 135-145 9747012156) K (test code = 4.3 mmol/L 3.5-5 Slight hemoly sis 2397488280) CL (test code = 104 mmol/L 98-108 3956897881) CO2 TOTAL (test 26 mmol/L 23-31 code = 4229300278) AGAP (test code = 2-16 5715883113) BUN (test code = 12 mg/dL 7-23 Slight hemo lysis 7753916884) GLUCOSE (test code 98 mg/dL 70-110 = 4063264927) CREATININE (test 0.50 mg/dL 0.5-1.04 code = 9358921936) CALCIUM (test code 8.9 mg/dL 8.6-10.6 = 3864830913) eGFR Calculation mL/min/1.73m2 (Non-) (test code = 1617076184) eGFR Calculation mL/min/1.73m2 () (test code = 2230506638) KIM (test code = Association of KIM) Glomerular Filtration Rate (GFR) and Staging of Kidney Disease* + ----+ ------+ +| GFR (mL/min/1.73 m2) ?| With Kidney Damage ?| ?Without Kidney Damage+ +--------- +------- +| ?>90 ?| ?Stage one ?| ? Normal ?+ -----+ -------+ +| ?60-89 ?| ?Stage two ?| ? Decreased GFR ? + ----+ ------+ +| ?30-59 ?| ?Stage three ?| ? Stage three ? + ----+ ------+ +| ?15-29 ?| ?Stage four ? | ? Stage four ?+ -----+ -------+ +| ?<15 (or dialysis) ? ?| ?Stage five ? | ? Stage five ?+ -----+ -------+ + *Each stage assumes the associated GFR level has been in effect for at least three months. ?Stages 1 to 5, with or without kidney disease, indicate chronic kidney disease. Notes: Determination of stages one and two (with eGFR >59mL/min/1.73 m2) requires estimation of kidney damage for at least three months as defined by structural or functional abnormalities of the kidney, manifested by either:Pathological abnormalities or Markers of kidney damage (including abnormalities in the composition of the blood or urine or abnormalities in imaging tests). [facility] WITH [id number] 08:58:00 Test Item Value Reference Range Interpretation Comments WBC (test code = See_Comment [Automated 6690-2) message] The sy stem which generated this result transmitted reference range : 4.30 - 11.10 10*3/?L. The reference range was not used to interpret this result as normal/abnormal . RBC (test code = See_Comment L [Automated 789-8) message] The sy stem which generated this result transmitted reference range : 3.93 - 5.25 10*6/?L. The reference range was not used to interpret this result as normal/abnormal . HGB (test code = 10.0 g/dL 11.6-15 L 718-7) HCT (test code = 30.8 % 35.7-45.2 L 4544-3) MCV (test code = 96.6 fL 80.6-95.5 H 787-2) MCH (test code = 31.3 pg 25.9-32.8 785-6) MCHC (test code = 32.5 g/dL 31.6-35.1 786-4) RDW-SD (test code = 48.5 fL 39-49.9 16386-4) RDW-CV (test code = 13.9 % 12-15.5 788-0) PLT (test code = See_Comment [Automated 777-3) message] The sy stem which generated this result transmitted reference range : 166 - 358 10*3/ ?L. The reference r luca was not used to interpret this result as normal/abnormal . MPV (test code = 9.1 fL 9.5-12.9 L 11451-2) NRBC/100 WBC (test See_Comment [Automat ed code = 7977805818) message] The system which generated this result transmitted reference range : 0.0 - 10.0 /100 WBCs. The refer ence range was not u sed to interpret th is result as normal/abnormal . NRBC x10^3 (test code <0.01 See_Comment [Auto mated = 1363238222) message] The s [employer] which generated this result transmitted reference range : 10*3/?L. The reference range was not used to interpret this result as normal/abnormal . GRAN MAT (NEUT) % 69.8 % (test code = 770-8) IMM GRAN % (test code 0.40 % = 8054048472) LYMPH % (test code = 21.9 % 736-9) MONO % (test code = 6.7 % 5905-5) EOS % (test code = 0.8 % 713-8) BASO % (test code = 0.4 % 706-2) GRAN MAT x10^3(ANC) 3.66 10*3/uL 1.88-7.09 (test code = 6861276482) IMM GRAN x10^3 (test <0.03 0-0.06 code = 8318829171) LYMPH x10^3 (test code 1.15 10*3/uL 1.32-3.29 L = 731-0) MONO x10^3 (test code 0.35 10*3/uL 0.33-0.92 = 742-7) EOS x10^3 (test code = 0.04 10*3/uL 0.03-0.39 711-2) BASO x10^3 (test code <0.03 0.01-0.07 = 704-7) Lab Interpretation Abnormal (test code = 45335-7) [facility] MUSCLE AB,IGG [id number] 15:17:00 Test Item Value Reference Range Interpretation Comments F-ACTIN (SMOOTH See_Comment If F-Actin (Smooth MUSCLE) AB, Muscle) Antibod y, IgG is IGG(BEAKER) (test negative, the Smooth Muscle code = 16546-0) Antibody tit er by IFA is not performed.R EFERENCE INTERVAL: F-Act in (Smooth Muscle) Antibod y, IgG by ?MELONY ?19 Units or less . ...... Negative ?20 - 30 Units .......... Weak Positive-Sugges t repeat ? testing in two to three weeks ? with fresh specimen. ?31 Units or gr eater..... Positive-Sugges tive of ? autoimmune hepa titis type 1 ? or chronic acti ve hepatitis. F-ac tin IgG antibodies have been shown to have increas ed sensitivity for autoimmune hepatitis (AIH) but lower specificity grant n smooth muscle antibodi es (SMA). F-actin IgG ant ibodies can also be seen in SMA-negative di sease controls (non-A IH), especially in p atients with primary biliary cirrhosis and chronic hep atitis C infections. Sha e patients with AIH may be SMA-positive bu t negative for F-actin IgG . Consider testing for SMA by IFA if suspicion for A IH is strong.Performe d By: [employer] [address] [place], [place] [address]Sdqldojzdz Director: Praveena Mantilla MD [Automated mess age] The system which ge nerated this result transmit gulshan reference range : 0 - 19 Units. The refe rence range was not used to interpret this result as normal/abnormal . [facility] M2 AB, [id number] 00:28:00 Test Item Value Reference Range Interpretation Comments AMA (test code = See_Comment H REFERENCE I NTERVAL: 47837-5) Mitochondrial ( M2) Antibody, IgG ? ?20.0 Units or less ......... Negat kourtney ?20.1 - 24.9 Units.......... . Equivocal ?25.0 Units or greater..... .. Positive Anti-mitochondr ial antibodies (AMA ) are thought to be p resent in 90-95% of pa tients with primary bi liary cholangitis (PB C). However, the fr equency of detected ant ibodies may be cohort o r assay dependent, as l ower sensitivities h ave been reported. Not all PBC patients ar e positive for AM A; some patients may be positive for SP 100 and/or GP210 antibodies. A n egative result does not rule out PBC.Perform ed By: [employer] [address] [place], [place] [address]Kwnnepgtqw Director: Praveena Mantilla MD [Aut omated message] The sy stem which generated this result transmit gulshan reference range : 0.0 - 24.9 Units. The reference range was not used to int erpret this result as normal/abnormal . Lab Interpretation Abnormal (test code = 16361-9) [facility] CULTURE [id number] 17:01:00 Test Item Value Reference Range Interpretation Comments Blood Culture-Aerobic No organisms No growth Previo us (test code = 50283-3) isolated prelim inary verified result was Culture In Progress on 01/31/2020 at 1501 CDTPreviou s preliminary verified result was No growth a t 24 hours on 02/01/2020 at 1201 CDTPreviou s preliminary verified result was No growth a t 48 hours on 02/02/2020 at 1201 CDTPreviou s preliminary verified result was No growth a t 72 hours on 02/03/2020 at 1201 CDT Blood No organisms No growth Previous Culture-Anaerobic isolated preliminar y (test code = 71961-3) verifi ed result was Culture In Progress on 01/31/2020 at 1501 CDTPreviou s preliminary verified result was No growth a t 24 hours on 02/01/2020 at 1201 CDTPreviou s preliminary verified result was No growth a t 48 hours on 02/02/2020 at 1201 CDTPreviou s preliminary verified result was No growth a t 72 hours on 02/03/2020 at 1201 CDT Lab Interpretation Normal (test code = 41485-3) [facility] CULTURE [id number] 14:01:00 Test Item Value Reference Range Interpretation Comments Blood Culture Coagulase negative Addition al Workup (test Staphylococcus work-up perfo rmed code = 600-7) only per reque st. Culture plate(s ) will be saved until this date : - 02/10/20 Gram stain Isolated from aerobic (test code = bottle Gram positive 664-3) cocci [facility] METABOLIC PANEL ([id number])2020-02-05 09:59:00 Test Item Value Reference Range Interpretation Comments NA (test code = 140 mmol/L 135-145 0344590392) K (test code = 3.7 mmol/L 3.5-5 8708000937) CL (test code = 107 mmol/L 98-108 1008306030) CO2 TOTAL (test code = 25 mmol/L 23-31 7107300128) AGAP (test code = 2-16 2944128153) BUN (test code = 11 mg/dL 7-23 4925415389) GLUCOSE (test code = 90 mg/dL 70-110 3997696370) CREATININE (test code = 0.58 mg/dL 0.5-1.04 2299777694) TOTAL BILI (test code = 0.9 mg/dL 0.1-1.8 2922683357) CALCIUM (test code = 8.9 mg/dL 8.6-10.6 4584055550) T PROTEIN (test code = 6.7 g/dL 6.3-8.2 2229188529) ALBUMIN (test code = 3.5 g/dL 3.5-5 1834625249) ALK PHOS (test code = 518 U/L 34-122 H 9601037789) ALTv (test code = 84 U/L 5-35 H 1742-6) AST(SGOT) (test code = 49 U/L 13-40 H 0041684261) eGFR Calculation mL/min/1.73m2 (Non-) (test code = 1527370022) eGFR Calculation mL/min/1.73m2 () (test code = 1655989757) KIM (test code = KIM) Association of Glomerular Filtration Rate (GFR) and Staging of Kidney Disease* + --+ --+ ------+| GFR (mL/min/1.73 m2) ?| With Kidney Damage ?| ?Without Kidney Damage+ --------+ --------+ +| ?>90 ?| ?Stage one ?| ? Normal ?+ ---+ ---+ -------+| ?60-89 ?| ?Stage two ?| ? Decreased GFR ? + --+ --+ ------+| ?30-59 ?| ?Stage three ?| ? Stage three ? + --+ --+ ------+| ?15-29 ?| ?Stage four ? | ? Stage four ?+ ---+ ---+ -------+| ?<15 (or dialysis) ? ?| ?Stage five ? | ? Stage five ?+ ---+ ---+ -------+ *Each stage assumes the associated GFR level has been in effect for at least three months. ?Stages 1 to 5, with or without kidney disease, indicate chronic kidney disease. Notes: Determination of stages one and two (with eGFR >59mL/min/1.73 m2) requires estimation of kidney damage for at least three months as defined by structural or functional abnormalities of the kidney, manifested by either:Pathological abnormalities or Markers of kidney damage (including abnormalities in the composition of the blood or urine or abnormalities in imaging tests). Lab Interpretation Abnormal (test code = 09133-5) [facility] WITH [id number] 09:43:00 Test Item Value Reference Range Interpretation Comments WBC (test code = See_Comment [Automated 6690-2) message] The sy stem which generated this result transmitted reference range : 4.30 - 11.10 10*3/?L. The reference range was not used to interpret this result as normal/abnormal . RBC (test code = See_Comment L [Automated 789-8) message] The sy stem which generated this result transmitted reference range : 3.93 - 5.25 10*6/?L. The reference range was not used to interpret this result as normal/abnormal . HGB (test code = 9.4 g/dL 11.6-15 L 718-7) HCT (test code = 30.1 % 35.7-45.2 L 4544-3) MCV (test code = 98.4 fL 80.6-95.5 H 787-2) MCH (test code = 30.7 pg 25.9-32.8 785-6) MCHC (test code = 31.2 g/dL 31.6-35.1 L 786-4) RDW-SD (test code = 48.1 fL 39-49.9 30829-4) RDW-CV (test code = 13.4 % 12-15.5 788-0) PLT (test code = See_Comment [Automated 777-3) message] The sy stem which generated this result transmitted reference range : 166 - 358 10*3/ ?L. The reference r luca was not used to interpret this result as normal/abnormal . MPV (test code = 8.7 fL 9.5-12.9 L 80773-3) NRBC/100 WBC (test See_Comment [Automat ed code = 4776443702) message] The system which generated this result transmitted reference range : 0.0 - 10.0 /100 WBCs. The refer ence range was not u sed to interpret th is result as normal/abnormal . NRBC x10^3 (test code <0.01 See_Comment [Auto mated = 7788833270) message] The s ystem which generated this result transmitted reference range : 10*3/?L. The reference range was not used to interpret this result as normal/abnormal . GRAN MAT (NEUT) % 68.3 % (test code = 770-8) IMM GRAN % (test code 0.20 % = 5649511413) LYMPH % (test code = 24.2 % 736-9) MONO % (test code = 5.5 % 5905-5) EOS % (test code = 1.4 % 713-8) BASO % (test code = 0.4 % 706-2) GRAN MAT x10^3(ANC) 3.47 10*3/uL 1.88-7.09 (test code = 3780371926) IMM GRAN x10^3 (test <0.03 0-0.06 code = 0097867801) LYMPH x10^3 (test code 1.23 10*3/uL 1.32-3.29 L = 731-0) MONO x10^3 (test code 0.28 10*3/uL 0.33-0.92 L = 742-7) EOS x10^3 (test code = 0.07 10*3/uL 0.03-0.39 711-2) BASO x10^3 (test code <0.03 0.01-0.07 = 704-7) Lab Interpretation Abnormal (test code = 50750-5) [facility] CERVICAL SPINE WO [id number] 05:59:37 Mild degenerative changes most pronounced at C5-C6 and C6-C7 as above. RL: 460 AFC: [id number] Ordering physician: GET AGUILLON INDICATION: Neck pain, radiculopathy COMPARISON: None TECHNIQUE: MRI of the cervical spine was performed without theadministration of intravenous contrast. FINDINGS: The cervical spine is in normal anatomic alignment. Thecraniocervical junction is unremarkable. There is preservation of normalvertebral body height and signal. There is no abnormal cord signal or cordcompression. There is diffuse loss of intervertebral disc height andsignal, consistent with degenerative disc disease. C5-C6: Mild broad-based disc osteophyte complex slightly eccentric to theleft. There is mild central canal stenosis and mild left neural foraminalstenosis. C6- C7: Mild to moderate broad-based disc osteophyte complex. There ismoderate central canal stenosis, with the canal measuring 8.5 mm AP. Thereis bilateral moderate neuralforaminal stenosis. [facility], Radiant Results Inft User - 02/05/2020 1:00 AM CDTOrdering physician: GET CARVAJALDICATION: Neck pain, radiculopathyCOMPARISON: NoneTECHNIQUE: MRI of the cervical spine was performed without theadministration of intravenous contrast.FINDINGS: The cervical spine is in normal anatomic alignment. Thecraniocervical junction is unremarkable. There is preservation of normalvertebral body height and signal. There is no abnormal cord signal or cordcompression. There is diffuse loss of intervertebral disc height andsignal, consistent with degenerative disc disease.C5-C6: Mild broad-based disc osteophyte complex slightly eccentric to theleft. There is mild central canal stenosis and mild left neural foraminalstenosis.C6-C7: Mild to moderate broad-based disc osteophyte complex. There ismoderate central canal stenosis, with the canal measuring 8.5 mm AP. Thereis bilateral moderateneural foraminal stenosis.IMPRESSIONMild degenerative changes most pronounced at C5-C6 and C6-C7 as above.RL: 460AFC: [id number] signed by Minal Vaughan MD, PhD at 02/05/2020 12:59 AMUnAudie L. Murphy Memorial [facility] HospitalOCCULT (GUAIAC) [id number] 14:40:00 Test Item Value Reference Range Interpretation Comments Occult (guaiac) Blood (test code = Negative Negative 2335-8) Lab Interpretation (test code = Normal 31649-3) [facility] [id number] 10:32:00 Test Item Value Reference Range Interpretation Comments NT-proBNP (test code 403 pg/mL See_Comment H [Autom ated = 1463045296) message] The system which generated this result transmitted reference range : <=125. The reference range was not used to interpret this result as normal/abnormal . KIM (test code = KIM) Biotin has been reported to cause a negative bias, interpret results relative to patient's use of biotin. Lab Interpretation Abnormal (test code = 97803-1) [facility]. METABOLIC PANEL ([id number])2020-02-04 10:24:00 Test Item Value Reference Range Interpretation Comments NA (test code = 138 mmol/L 135-145 8926858011) K (test code = 3.7 mmol/L 3.5-5 3293633957) CL (test code = 106 mmol/L 98-108 4732776499) CO2 TOTAL (test code = 27 mmol/L 23-31 5592182111) AGAP (test code = 2-16 0859588838) BUN (test code = 9 mg/dL 7-23 9505086503) GLUCOSE (test code = 105 mg/dL 70-110 8133540116) CREATININE (test code = 0.59 mg/dL 0.5-1.04 2085315599) TOTAL BILI (test code = 0.9 mg/dL 0.1-1.4 8544311820) CALCIUM (test code = 9.0 mg/dL 8.6-10.6 9462351378) T PROTEIN (test code = 6.4 g/dL 6.3-8.2 1420366948) ALBUMIN (test code = 3.2 g/dL 3.5-5 L 1299418631) ALK PHOS (test code = 486 U/L 34-122 H 6430640053) ALTv (test code = 91 U/L 5-35 H 1742-6) AST(SGOT) (test code = 41 U/L 13-40 H 2271569845) eGFR Calculation mL/min/1.73m2 (Non-) (test code = 2849939571) eGFR Calculation mL/min/1.73m2 () (test code = 7722467459) KIM (test code = KIM) Association of Glomerular Filtration Rate (GFR) and Staging of Kidney Disease* + --+ --+ ------+| GFR (mL/min/1.73 m2) ?| With Kidney Damage ?| ?Without Kidney Damage+ --------+ --------+ +| ?>90 ?| ?Stage one ?| ? Normal ?+ ---+ ---+ -------+| ?60-89 ?| ?Stage two ?| ? Decreased GFR ? + --+ --+ ------+| ?30-59 ?| ?Stage three ?| ? Stage three ? + --+ --+ ------+| ?15-29 ?| ?Stage four ? | ? Stage four ?+ ---+ ---+ -------+| ?<15 (or dialysis) ? ?| ?Stage five ? | ? Stage five ?+ ---+ ---+ -------+ *Each stage assumes the associated GFR level has been in effect for at least three months. ?Stages 1 to 5, with or without kidney disease, indicate chronic kidney disease. Notes: Determination of stages one and two (with eGFR >59mL/min/1.73 m2) requires estimation of kidney damage for at least three months as defined by structural or functional abnormalities of the kidney, manifested by either:Pathological abnormalities or Markers of kidney damage (including abnormalities in the composition of the blood or urine or abnormalities in imaging tests). Lab Interpretation Abnormal (test code = 90515-8) [facility]IUM2020-10-22 10:24:00 Test Item Value Reference Range Interpretation Comments MAGNESIUM (test code = 1732392333) 1.8 mg/dL 1.7-2.4 Lab Interpretation (test code = Normal 18914-1) [facility]landCB with [id number] 10:11:00 Test Item Value Reference Range Interpretation Comments WBC (test code = See_Comment [Automated 6690-2) message] The sy stem which generated this result transmitted reference range : 4.30 - 11.10 10*3/?L. The reference range was not used to interpret this result as normal/abnormal . RBC (test code = See_Comment L [Automated 789-8) message] The sy stem which generated this result transmitted reference range : 3.93 - 5.25 10*6/?L. The reference range was not used to interpret this result as normal/abnormal . HGB (test code = 10.1 g/dL 11.6-15 L 718-7) HCT (test code = 30.5 % 35.7-45.2 L 4544-3) MCV (test code = 96.8 fL 80.6-95.5 H 787-2) MCH (test code = 32.1 pg 25.9-32.8 785-6) MCHC (test code = 33.1 g/dL 31.6-35.1 786-4) RDW-SD (test code = 47.9 fL 39-49.9 96276-2) RDW-CV (test code = 13.7 % 12-15.5 788-0) PLT (test code = See_Comment [Automated 777-3) message] The sy stem which generated this result transmitted reference range : 166 - 358 10*3/ ?L. The reference r luca was not used to interpret this result as normal/abnormal . MPV (test code = 8.5 fL 9.5-12.9 L 96577-6) NRBC/100 WBC (test See_Comment [Automat ed code = 3934872001) message] The system which generated this result transmitted reference range : 0.0 - 10.0 /100 WBCs. The refer ence range was not u sed to interpret th is result as normal/abnormal . NRBC x10^3 (test code <0.01 See_Comment [Auto mated = 9949531118) message] The s ystem which generated this result transmitted reference range : 10*3/?L. The reference range was not used to interpret this result as normal/abnormal . GRAN MAT (NEUT) % 74.2 % (test code = 770-8) IMM GRAN % (test code 0.40 % = 9660361773) LYMPH % (test code = 16.6 % 736-9) MONO % (test code = 6.8 % 5905-5) EOS % (test code = 1.7 % 713-8) BASO % (test code = 0.3 % 706-2) GRAN MAT x10^3(ANC) 5.60 10*3/uL 1.88-7.09 (test code = 4229024094) IMM GRAN x10^3 (test 0.03 10*3/uL 0-0.06 code = 5800926381) LYMPH x10^3 (test code 1.25 10*3/uL 1.32-3.29 L = 731-0) MONO x10^3 (test code 0.51 10*3/uL 0.33-0.92 = 742-7) EOS x10^3 (test code = 0.13 10*3/uL 0.03-0.39 711-2) BASO x10^3 (test code <0.03 0.01-0.07 = 704-7) Lab Interpretation Abnormal (test code = 73987-4) [facility]landANTI-NUCLEAR ANTIBODY [id number] 19:43:00 Test Item Value Reference Range Interpretation Comments LESLY (test code = Negative Negative 1413031420) KIM (test code = KIM) Cytoplasmic staining reactions observed. Negative - No Anti-Nuclear Antibodies detected by IFA.Positive - LESLY IFA screen performed with a 1:80 dilution in adults and a 1:40 dilution in pediatrics. Any LESLY "Positive" will have titer performed and reported separately. Lab Interpretation (test Normal code = 87102-8) [facility]landCERULOPLASMIN2020-10-21 18:45:00 Test Item Value Reference Range Interpretation Comments CERULO (test code = 6058205755) 55 mg/dL 25-63 Lab Interpretation (test code = Normal 38000-4) [facility] PearlandAMMONIA, [id number] 17:29:00 Test Item Value Reference Range Interpretation Comments AMMONIA (test code = 8545542304) <9 9-33 L Lab Interpretation (test code = Abnormal 05766-6) [facility]landBLOOD CULTURE [id number] 17:07:00 Test Item Value Reference Range Interpretation Comments Blood Culture-Aerobic Culture positive. No growth AA P revious (test code = 14537-9) See Blood prelim inary Culture Workup verified resu lt for additional was Culture I n information. Progress on 01/31/2020 at 1701 CDTPreviou s preliminary verified result was No growth a t 24 hours on 02/01/2020 at 1401 CDT Blood No organisms No growth Previous Culture-Anaerobic isolated preliminar y (test code = 74715-6) verifi ed result was Culture In Progress on 01/31/2020 at 1701 CDTPreviou s preliminary verified result was No growth a t 24 hours on 02/01/2020 at 1401 CDT Lab Interpretation Abnormal (test code = 40043-5) [facility]landBLOOD CULTURE [id number] 17:07:00 Test Item Value Reference Range Interpretation Comments Blood Culture Coagulase negative Addition al Workup (test Staphylococcus work-up perfo rmed code = 600-7) only per reque st. Culture plate(s ) will be saved until this date : - 02/08/2020 Gram stain Isolated from aerobic The pr eviously (test code = bottle Gram positive reporte d result 664-3) cocci Isolated from anaerobic bottl e Gram positive cocci is no longer being reported. [facility]landCREATINE [id number] 10:44:00 Test Item Value Reference Range Interpretation Comments CK (test code = 1176757906) 21 U/L 33-194 L Lab Interpretation (test code = Abnormal 64422-2) [facility]landN-TERMINAL [id number] 09:34:00 Test Item Value Reference Range Interpretation Comments NT-proBNP (test code 850 pg/mL See_Comment H [Autom ated = 0179458891) message] The system which generated this result transmitted reference range : <=125. The reference range was not used to interpret this result as normal/abnormal . KIM (test code = KIM) Biotin has been reported to cause a negative bias, interpret results relative to patient's use of biotin. Lab Interpretation Abnormal (test code = 42037-4) [facility] (02729)2020-02-03 09:26:00 Test Item Value Reference Range Interpretation Comments NA (test code = 136 mmol/L 135-145 2950699794) K (test code = 3.6 mmol/L 3.5-5 4362051924) CL (test code = 104 mmol/L 98-108 6487221449) CO2 TOTAL (test code = 28 mmol/L 23-31 8160946318) AGAP (test code = 2-16 9174173784) BUN (test code = 7 mg/dL 7-23 6953981062) GLUCOSE (test code = 138 mg/dL 70-110 H 2597697519) CREATININE (test code = 0.61 mg/dL 0.5-1.04 7539077678) TOTAL BILI (test code = 1.0 mg/dL 0.1-1.8 2878136558) CALCIUM (test code = 9.2 mg/dL 8.6-10.6 7537911231) T PROTEIN (test code = 6.6 g/dL 6.3-8.2 6032758833) ALBUMIN (test code = 3.5 g/dL 3.5-5 0970613094) ALK PHOS (test code = 584 U/L 34-122 H 2861881493) ALTv (test code = 131 U/L 5-35 H 1742-6) AST(SGOT) (test code = 49 U/L 13-40 H 5224480351) eGFR Calculation mL/min/1.73m2 (Non-) (test code = 1297956517) eGFR Calculation mL/min/1.73m2 () (test code = 7440021881) KIM (test code = KIM) Association of Glomerular Filtration Rate (GFR) and Staging of Kidney Disease* + --+ --+ ------+| GFR (mL/min/1.73 m2) ?| With Kidney Damage ?| ?Without Kidney Damage+ --------+ --------+ +| ?>90 ?| ?Stage one ?| ? Normal ?+ ---+ ---+ -------+| ?60-89 ?| ?Stage two ?| ? Decreased GFR ? + --+ --+ ------+| ?30-59 ?| ?Stage three ?| ? Stage three ? + --+ --+ ------+| ?15-29 ?| ?Stage four ? | ? Stage four ?+ ---+ ---+ -------+| ?<15 (or dialysis) ? ?| ?Stage five ? | ? Stage five ?+ ---+ ---+ -------+ *Each stage assumes the associated GFR level has been in effect for at least three months. ?Stages 1 to 5, with or without kidney disease, indicate chronic kidney disease. Notes: Determination of stages one and two (with eGFR >59mL/min/1.73 m2) requires estimation of kidney damage for at least three months as defined by structural or functional abnormalities of the kidney, manifested by either:Pathological abnormalities or Markers of kidney damage (including abnormalities in the composition of the blood or urine or abnormalities in imaging tests). Lab Interpretation Abnormal (test code = 14275-2) [facility]2020-10-21 09:26:00 Test Item Value Reference Range Interpretation Comments MAGNESIUM (test code = 2820580313) 1.7 mg/dL 1.7-2.4 Lab Interpretation (test code = Normal 66913-2) [facility]PHOSPHORUS2020-10-21 09:26:00 Test Item Value Reference Range Interpretation Comments PHOSPHORUS (test code = 7308012604) 4.1 mg/dL 2.5-5 Lab Interpretation (test code = Normal 54922-0) [facility]landURIC [id number] 09:26:00 Test Item Value Reference Range Interpretation Comments URIC ACID (test code = 3829936750) 3.4 mg/dL 2.9-6 Lab Interpretation (test code = Normal 66916-7) [facility] WITH [id number] 08:58:00 Test Item Value Reference Range Interpretation Comments WBC (test code = See_Comment [Automated 6690-2) message] The sy stem which generated this result transmitted reference range : 4.30 - 11.10 10*3/?L. The reference range was not used to interpret this result as normal/abnormal . RBC (test code = See_Comment L [Automated 789-8) message] The sy stem which generated this result transmitted reference range : 3.93 - 5.25 10*6/?L. The reference range was not used to interpret this result as normal/abnormal . HGB (test code = 9.8 g/dL 11.6-15 L 718-7) HCT (test code = 29.8 % 35.7-45.2 L 4544-3) MCV (test code = 97.1 fL 80.6-95.5 H 787-2) MCH (test code = 31.9 pg 25.9-32.8 785-6) MCHC (test code = 32.9 g/dL 31.6-35.1 786-4) RDW-SD (test code = 47.2 fL 39-49.9 55537-5) RDW-CV (test code = 13.2 % 12-15.5 788-0) PLT (test code = See_Comment [Automated 777-3) message] The sy stem which generated this result transmitted reference range : 166 - 358 10*3/ ?L. The reference r luca was not used to interpret this result as normal/abnormal . MPV (test code = 8.7 fL 9.5-12.9 L 62708-5) NRBC/100 WBC (test See_Comment [Automat ed code = 4954123729) message] The system which generated this result transmitted reference range : 0.0 - 10.0 /100 WBCs. The refer ence range was not u sed to interpret th is result as normal/abnormal . NRBC x10^3 (test code <0.01 See_Comment [Auto mated = 8996576191) message] The s ystem which generated this result transmitted reference range : 10*3/?L. The reference range was not used to interpret this result as normal/abnormal . GRAN MAT (NEUT) % 78.4 % (test code = 770-8) IMM GRAN % (test code 0.50 % = 8548368453) LYMPH % (test code = 12.5 % 736-9) MONO % (test code = 6.1 % 5905-5) EOS % (test code = 2.1 % 713-8) BASO % (test code = 0.4 % 706-2) GRAN MAT x10^3(ANC) 6.43 10*3/uL 1.88-7.09 (test code = 2299901966) IMM GRAN x10^3 (test 0.04 10*3/uL 0-0.06 code = 0677071661) LYMPH x10^3 (test code 1.02 10*3/uL 1.32-3.29 L = 731-0) MONO x10^3 (test code 0.50 10*3/uL 0.33-0.92 = 742-7) EOS x10^3 (test code = 0.17 10*3/uL 0.03-0.39 711-2) BASO x10^3 (test code 0.03 10*3/uL 0.01-0.07 = 704-7) Lab Interpretation Abnormal (test code = 19696-1) [facility]landVALPRO[facility] ACID, [id number] 05:42:00 Test Item Value Reference Range Interpretation Comments Valproic Acid, Free <2.0 4-15 L (test code = 6726456718) KIM (test code = KIM) Toxic Range: ? Greater than 15 ug/mL Test developed and characteristics determined by [facility] Laboratory Services. Lab Interpretation Abnormal (test code = 16120-2) [facility]landHAV ANTIBODY (IGG AND IGM)2020-02-03 04:20:00 Test Item Value Reference Range Interpretation Comments HAV Total (test code Positive = 7609275823) HAVT Semi-Quantitative (test code = 6744844920) KIM (test code = KIM) Indicates past or present infection with HAV or exposure to HAV due to vaccination. [facility]landHEPATITIS B SURFACE [id number] 04:12:00 Test Item Value Reference Range Interpretation Comments HBsAB (test code = Negative 3966110326) HBsAb mIU/mL Semi-Quantitative (test code = 9143935356) KIM (test code = Interpretation: KIM) ?Hepatitis B Surface Antibody ? Negative - Patient is considered to be not immune to infection with HBV. ? ? Positive - Anti-HBs detected at greater than or equal to 12 mIU/mL. ?Patient is considered to be immune to infection with HBV. ? [facility]landHCV [id number] 04:12:00 Test Item Value Reference Range Interpretation Comments HCV Ab (test code = 97909-1) Negative HCV Semi-Quantitative (test code = 72284-8) [facility]landHEPATITIS B SURFACE [id number] 03:55:00 Test Item Value Reference Range Interpretation Comments HBsAg Semi-Quantitative (test code = Negative Negative 5195-3) [facility]landPROCALCITONIN2020-10-21 03:54:00 Test Item Value Reference Range Interpretation Comments Procalcitonin (test 0.05 ng/mL <0.07 code = 9431572909) KIM (test code = KIM) INTERPRETATION OF PROCALCITONIN RESULTS IN ADULTS >= 18 YEARS OF AGE Initiation and discontinuation of antibiotics on patients with suspected or confirmed Lower Respiratory Tract Infection in Adults >= 18 years of age. + +-------- --------+ + -----+|Procalcitonin |Interpretation ?|Antibiotic ? ? |Considerations ? |ng/mL ? | ?|recommendation | ? + +-------- --------+ + -----+| <0.1 ? | Bacterial ? ? ?| Strongly ? ? ?| ? | ?| infection very | discouraged ? | Overruling: ? | ?| unlikely ? ? ? | ? | ? Clinically unstable ? ? ? + +-------- --------+ + ? High risk for adverse ? ? | <0.25 ?| Bacterial ? ? ?| Discouraged ? | ? outcome ? | ?| infection ? ? ?| ? | ? SEE IMPORTANT NOTE ?| ?| unlikely ? ? ? | ? | ? + +-------- --------+ + -----+| >=0.25 ? ? ? | Bacterial ? ? ?| Encouraged ? ?| ? | ?| infection ? ? ?| ? | ? | ?| likely ? | ? | Consider treatment failure ?+ +------- ---------+ -+ if levels does not decrease | >0.5 ? | Bacterial ? ? ?| Strongly ? ? ?| appropriately ? | ?| infection very | encouraged ? ?| ? | ?| likely ? | ? | ? + +-------- --------+ + -----+ Discontinuation of antibiotics in high-acuity patients with suspected or confirmed sepsis in Adults >= 18 years of age. + +-------- --------+ + -----+|Procalcitonin |Interpretation ?|Antibiotic ? ? |Considerations ? |ng/mL ? | ?|recommendation | ? + +-------- --------+ + -----+| <0.25 ?| Bacterial ? ? ?| Strongly ? ? ?| ? | ?| infection very | discouraged ? | Overruling: ? | ?| unlikely ? ? ? | ? | ? Clinically unstable ? ? ? + +-------- --------+ + ? High risk for adverse ? ? | <0.5 or drop | Bacterial ? ? ?| Discouraged ? | ? outcome ? | >80% from ? ?| infection ? ? ?| ? | ? SEE IMPORTANT NOTE ?| highest PCT ?| unlikely ? ? ? | ? | ? | level ?| ?| ? | ? + +-------- --------+ + -----+| >=0.5 ?| Bacterial ? ? ?| Encouraged ? ?| ? | ?| infection ? ? ?| ? | ? | ?| likely ? | ? | Consider treatment failure ?+ +------- ---------+ -+ if levels does not decrease | >1.0 ? | Bacterial ? ? ?| Strongly ? ? ?| appropriately ? | ?| infection very | encouraged ? ?| ? | ?| likely ? | ? | ? + +-------- --------+ + -----+ Percentage of drop of Procalcitonin calculation for Discontinuation of antibiotics in high-acuity patients with suspected or confirmed sepsis in Adults >= 18 years of age. ? Procalcitonin highest{}-Procalcitonin current{}Delta Procalcitonin = x100% ? Procalcitonin current {} IMPORTANT NOTE: Procalcitonin may be elevated without bacterial infection by physiologic stress related to trauma, crouch, chronic dialysis, metastatic cancer, surgery in the past seven days, malaria, some fungal infections, and some forms of vasculitis. The interpretation algorithm may not apply to patients with immunosuppression (equivalent of >10 mg of prednisone daily), HIV with CD4 cell count < 350 cells/mm3, active malignancy on systemic chemotherapy, solid organ transplant or hematopoietic stem cell transplantation, or hospital acquired pneumonia. Additionally, some clinical trials of procalcitonin have excluded patients with shock requiring vasopressor use, acute respiratory failure requiring mechanical ventilation, or those with known lung abscess/empyema. For further information please refer to:[email or web address] Lab Interpretation Normal (test code = 65844-4) [facility]landGLYCOSYLATED HEMOGLOBIN (A1C)2020-02-02 22:47:00 Test Item Value Reference Range Interpretation Comments HGB A1C (test code = 4.5 % 4-6 4548-4) KIM (test code = KIM) %A1C (NGSP) Interpretation (ADA)4.8-5.6 ? ? Normal or (Non-Diabetic Range)5.7-6.4 ? ? Increased Risk (Pre-Diabetic)>6.5 ?Diabetes Indicated Lab Interpretation Normal (test code = 71260-2) [facility]landVALPROIC ACID, [id number] 22:28:00 Test Item Value Reference Range Interpretation Comments VALPROIC A (test code = <10 50-100 L 7729036774) KIM (test code = KIM) Toxic Range: ?Greater than 100 ug/mL Lab Interpretation (test Abnormal code = 47187-8) [facility] PearlandLIPID PANEL (22910)(TOTAL CHOLESTEROL, TRIGLYCERIDES, HDL)2020-02-02 21:23:00 Test Item Value Reference Range Interpretation Comments CHOL (test code = 343 mg/dL 120-200 H 7043534139) HDL (test code = 87 mg/dL >50 8543152093) HDLC RATIO (test code = See_Comment [Au tomated message] 6406231641) The system [employer] generated this result transmit gulshan reference range : <=4.5. The refe rence range was not u sed to interpret th is result as normal/abnormal . TRIG (test code = 131 mg/dL 30-170 0274190514) LDL CHOL (test code = 230 mg/dL See_Comment H [Auto mated message] 31443-4) The system [employer] generated this result transmit gulshan reference range : <=160. The refe rence range was not u sed to interpret th is result as normal/abnormal . VLDL (test code = 26 mg/dL 5-60 6157650475) Lab Interpretation (test Abnormal code = 14879-1) [facility]landPROTHROMBIN TIME / [id number] 21:16:00 Test Item Value Reference Range Interpretation Comments PROTIME PATIENT (test See_Comment [Auto mated message] code = 5964-2) The system [employer] generated this result transmitted ref erence range: 12.0 - 1 4.7 Seconds. The re ference range was not u sed to interpret this result as normal/abnor mal. INR (test code = 6301-6) Nor mal INR <1.1; Warfarin Therap eutic range 2.0 to 3. 0 or 2.5 to 3.5, dep ending upon the indica tions. Lab Interpretation (test Normal code = 46712-9) [facility]landCREATINE [id number] 21:15:00 Test Item Value Reference Range Interpretation Comments CK (test code = 2924758906) 37 U/L 33-194 Lab Interpretation (test code = Normal 49326-2) [facility]landLIPASE2020-10-20 12:34:00 Test Item Value Reference Range Interpretation Comments LIPASE (test code = 6970134969) 203 U/L 0-220 Lab Interpretation (test code = Normal 81372-4) [facility]landCOMP. METABOLIC PANEL (03007)2020-02-02 12:34:00 Test Item Value Reference Range Interpretation Comments NA (test code = 135 mmol/L 135-145 5927736291) K (test code = 3.5 mmol/L 3.5-5 5091176662) CL (test code = 103 mmol/L 98-108 5364772573) CO2 TOTAL (test code = 25 mmol/L 23-31 0894728774) AGAP (test code = 2-16 4873413864) BUN (test code = 8 mg/dL 7-23 5062651922) GLUCOSE (test code = 148 mg/dL 70-110 H 8148569665) CREATININE (test code = 0.55 mg/dL 0.5-1.04 8633274889) TOTAL BILI (test code = 1.2 mg/dL 0.1-1.1 H 2829926486) CALCIUM (test code = 9.4 mg/dL 8.6-10.6 8471752063) T PROTEIN (test code = 6.9 g/dL 6.3-8.2 7906671493) ALBUMIN (test code = 3.6 g/dL 3.5-5 8317809159) ALK PHOS (test code = 723 U/L 34-122 H 0843988372) ALTv (test code = 166 U/L 5-35 H 1742-6) AST(SGOT) (test code = 72 U/L 13-40 H 3387264341) eGFR Calculation mL/min/1.73m2 (Non-) (test code = 0506429256) eGFR Calculation mL/min/1.73m2 () (test code = 0422780261) KIM (test code = KIM) Association of Glomerular Filtration Rate (GFR) and Staging of Kidney Disease* + --+ --+ ------+| GFR (mL/min/1.73 m2) ?| With Kidney Damage ?| ?Without Kidney Damage+ --------+ --------+ +| ?>90 ?| ?Stage one ?| ? Normal ?+ ---+ ---+ -------+| ?60-89 ?| ?Stage two ?| ? Decreased GFR ? + --+ --+ ------+| ?30-59 ?| ?Stage three ?| ? Stage three ? + --+ --+ ------+| ?15-29 ?| ?Stage four ? | ? Stage four ?+ ---+ ---+ -------+| ?<15 (or dialysis) ? ?| ?Stage five ? | ? Stage five ?+ ---+ ---+ -------+ *Each stage assumes the associated GFR level has been in effect for at least three months. ?Stages 1 to 5, with or without kidney disease, indicate chronic kidney disease. Notes: Determination of stages one and two (with eGFR >59mL/min/1.73 m2) requires estimation of kidney damage for at least three months as defined by structural or functional abnormalities of the kidney, manifested by either:Pathological abnormalities or Markers of kidney damage (including abnormalities in the composition of the blood or urine or abnormalities in imaging tests). Lab Interpretation Abnormal (test code = 46898-0) [facility]2020-10-20 12:32:00 Test Item Value Reference Range Interpretation Comments [place] (test code = 0.4 mmol/L 0.6-1.2 L 1652744627) KIM (test code = KIM) Toxic Range: ? Greater than 1.2 mmol/L Lab Interpretation (test Abnormal code = 54854-6) [facility]landPOCT GLUCOSE (AUTOMATED)2020-02-02 11:34:00 Test Item Value Reference Range Interpretation Comments POCT GLU (test code = 8422575873) 138 mg/dL 70-110 H Lab Interpretation (test code = Abnormal 27482-3) [facility]. METABOLIC PANEL (34235)2020-02-02 10:51:00 Test Item Value Reference Range Interpretation Comments NA (test code = 129 mmol/L 135-145 L 1302683807) K (test code = 3.0 mmol/L 3.5-5 L 6392493044) CL (test code = 100 mmol/L 98-108 0237874106) CO2 TOTAL (test code = 22 mmol/L 23-31 L 3168891161) AGAP (test code = 2-16 9629684297) BUN (test code = 8 mg/dL 7-23 8811186306) GLUCOSE (test code = 632 mg/dL 70-110 HH 4999702426) CREATININE (test code = 0.54 mg/dL 0.5-1.04 5250010532) TOTAL BILI (test code = 1.0 mg/dL 0.1-1.3 9945308564) CALCIUM (test code = 7.9 mg/dL 8.6-10.6 L 9506759252) T PROTEIN (test code = 5.3 g/dL 6.3-8.2 L 6424940027) ALBUMIN (test code = 2.7 g/dL 3.5-5 L 8768566193) ALK PHOS (test code = 562 U/L 34-122 H 1979293311) ALTv (test code = 138 U/L 5-35 H 1742-6) AST(SGOT) (test code = 61 U/L 13-40 H 6085898428) eGFR Calculation mL/min/1.73m2 (Non-) (test code = 4968487214) eGFR Calculation mL/min/1.73m2 () (test code = 3782295625) KIM (test code = KIM) Association of Glomerular Filtration Rate (GFR) and Staging of Kidney Disease* + --+ --+ ------+| GFR (mL/min/1.73 m2) ?| With Kidney Damage ?| ?Without Kidney Damage+ --------+ --------+ +| ?>90 ?| ?Stage one ?| ? Normal ?+ ---+ ---+ -------+| ?60-89 ?| ?Stage two ?| ? Decreased GFR ? + --+ --+ ------+| ?30-59 ?| ?Stage three ?| ? Stage three ? + --+ --+ ------+| ?15-29 ?| ?Stage four ? | ? Stage four ?+ ---+ ---+ -------+| ?<15 (or dialysis) ? ?| ?Stage five ? | ? Stage five ?+ ---+ ---+ -------+ *Each stage assumes the associated GFR level has been in effect for at least three months. ?Stages 1 to 5, with or without kidney disease, indicate chronic kidney disease. Notes: Determination of stages one and two (with eGFR >59mL/min/1.73 m2) requires estimation of kidney damage for at least three months as defined by structural or functional abnormalities of the kidney, manifested by either:Pathological abnormalities or Markers of kidney damage (including abnormalities in the composition of the blood or urine or abnormalities in imaging tests). Lab Interpretation Abnormal (test code = 50490-3) [facility]2020-10-20 10:40:00 Test Item Value Reference Range Interpretation Comments LIPASE (test code = 3111338452) 140 U/L 0-220 Lab Interpretation (test code = Normal 63798-3) [facility]landLITHIUM2020-10-20 10:37:00 Test Item Value Reference Range Interpretation Comments [place] (test code = 0.5 mmol/L 0.6-1.2 L 4584331548) KIM (test code = KIM) Toxic Range: ? Greater than 1.2 mmol/L Lab Interpretation (test Abnormal code = 92890-4) [facility]landCB WITH [id number] 09:57:00 Test Item Value Reference Range Interpretation Comments WBC (test code = See_Comment [Automated 6690-2) message] The sy stem which generated this result transmitted reference range : 4.30 - 11.10 10*3/?L. The reference range was not used to interpret this result as normal/abnormal . RBC (test code = See_Comment L [Automated 789-8) message] The sy stem which generated this result transmitted reference range : 3.93 - 5.25 10*6/?L. The reference range was not used to interpret this result as normal/abnormal . HGB (test code = 8.2 g/dL 11.6-15 L 718-7) HCT (test code = 26.3 % 35.7-45.2 L 4544-3) MCV (test code = 100.0 fL 80.6-95.5 H 787-2) MCH (test code = 31.2 pg 25.9-32.8 785-6) MCHC (test code = 31.2 g/dL 31.6-35.1 L 786-4) RDW-SD (test code = 47.2 fL 39-49.9 32596-1) RDW-CV (test code = 13.1 % 12-15.5 788-0) PLT (test code = See_Comment [Automated 777-3) message] The sy stem which generated this result transmitted reference range : 166 - 358 10*3/ ?L. The reference r luca was not used to interpret this result as normal/abnormal . MPV (test code = 9.7 fL 9.5-12.9 28488-9) NRBC/100 WBC (test See_Comment [Automat ed code = 2183557459) message] The system which generated this result transmitted reference range : 0.0 - 10.0 /100 WBCs. The refer ence range was not u sed to interpret th is result as normal/abnormal . NRBC x10^3 (test code <0.01 See_Comment [Auto mated = 6758767223) message] The s ystem which generated this result transmitted reference range : 10*3/?L. The reference range was not used to interpret this result as normal/abnormal . GRAN MAT (NEUT) % 78.6 % (test code = 770-8) IMM GRAN % (test code 0.50 % = 5610902235) LYMPH % (test code = 13.1 % 736-9) MONO % (test code = 5.5 % 5905-5) EOS % (test code = 2.0 % 713-8) BASO % (test code = 0.3 % 706-2) GRAN MAT x10^3(ANC) 5.18 10*3/uL 1.88-7.09 (test code = 9541958372) IMM GRAN x10^3 (test 0.03 10*3/uL 0-0.06 code = 8667949412) LYMPH x10^3 (test code 0.86 10*3/uL 1.32-3.29 L = 731-0) MONO x10^3 (test code 0.36 10*3/uL 0.33-0.92 = 742-7) EOS x10^3 (test code = 0.13 10*3/uL 0.03-0.39 711-2) BASO x10^3 (test code <0.03 0.01-0.07 = 704-7) Lab Interpretation Abnormal (test code = 85915-9) [facility]landGRAM POSITIVE BLOOD PATHOGENS DNA [id number] 06:56:00 Test Item Value Reference Range Interpretation Comments Coagulase Negative Positive Negative, See A Staphylococcus (test Comment/Narrative code = 49149-8) KIM (test code = KIM) Coagulase negative Staphylococcus (CoNS) detected by DNA probe. ?CoNS often contaminate blood cultures from skin colonization during phlebotomy. ?Preferred management is to repeat blood cultures, and monitor off antibiotics. ?Contamination is suggested by culture growth after 48 hours, or growth in single culture (i.e., one of two sets). ?True bacteremia is suggested by the fever, hypotension, and leukocytosis that are not explained by an alternative infection, or indwelling foreign devices that appear infected (catheters, lines, or prostheses). Consider Infectious Diseases consultation if differentiation of CoNS bacteremia from contamination is uncertain. If clinical context suggests true bacteremia, preferred therapy is vancomycin. Please contact the Antimicrobial Stewardship Program with questions.Pager: ?[phone] Testing included eleven identification and three resistance marker targets. Lab Interpretation Abnormal (test code = 12312-3) [facility]LAB ONLY COVID [id number] 20:46:00COVID DMT InterpretationInterpretation/Recommendations\\nTests (PCR) for Active Infection by COVID-19Virus: This patient has tested negative for the COVID-19 virus on two occasions. ?For approximatelytwo-thirds of patients with a negative test result who were tested only once, the patient is truly negative and has not been infected with the COVID-19 virus. However, for those tested using a nasopharyngeal sample, each time the PCR test is performed there is approximately a [id number] chance the patient had been infected and the result of the test is a false negative. This occurs because the virus is predominantly in the lung and out of reach of the nasopharyngeal swab. Importantly, this patient has tested negative twice. Especially if there were minimal or no symptoms of the infection, this makes a false negative result less likely for this patient, and much more likely that the patient has not been infected with the COVID-19 virus. Tests for IgM and/or IgG Antibodies to COVID- 19 Virus: A. ?A test for IgM antibody to the COVID-19 virus would be highly informative at this time. IgM antibodies to the COVID-19 virus identified in a high performing test, usually an MELONY or chemiluminescence based assay, should appear in most patients who are truly infected within approximately one week from the onset of symptoms, and in nearly all patients by 2 to 3 weeks after symptoms begin. If the IgM test is positive, even if the PCR tests for active infection were negative, it is highly probable that the patient has been infected with the virus at some point. B. ?A test for IgG antibodies to the COVID-19 virus was not performed and ?would also be informative if the IgM antibody test is positive, when performed. The sample for the IgG antibody test should be collected 2 or more weeks post onset of symptoms. The test for IgM and IgG antibodies can be performed using a single blood sample. ?It is the IgG antibodies that can confer long-term immunity to infectious agents. However, at this time, it is not known if the production of IgG antibodies indicates whether the patient is immune to future infections with the COVID-19 virus. It is also not known how long IgG antibodies to the COVID-19 virus persist, and therefore the length of immunity to future COVID-19 infections. C. ?Although it is uncommon, some patients cannot ever mount an antibody response to infectious agents, such as COVID-19. If there are persistently negative results for IgM and IgG antibodies, this may be the explanation.[facility] LABORATORY SERVICESCOVID PyzybqxPXPP-QhF-[id number] Rapid ID NOW (no units) ? ? Date ?Value ? 01/31/2020 ? Not Detected ? ? ? 08/21/2019 ? Not Detected ? [facility]AT[facility] SERVICESUnPaw[facility] VENOUS BLOOD [id number] 19:37:00 Test Item Value Reference Range Interpretation Comments PH (test code = 7.32-7.42 L 7416337667) PCO2 SANDHYA (test code = See_Comment [Auto mated message] 9598133262) The system [employer] generated this result transmitted ref erence range: 41 - 51 mmHg. The reference r luca was not used to interpret this result as normal/abnor mal. PO2 SANDHYA (test code = See_Comment HH [Autom ated message] 3073264437) The system [employer] generated this result transmitted ref erence range: 25 - 40 mmHg. The reference r luca was not used to interpret this result as normal/abnor mal. HCO3 SANDHYA (test code = See_Comment L [Auto mated message] 1270360499) The system [employer] generated this result transmitted ref erence range: 24 - 28 mEq/L. The reference r luca was not used to interpret this result as normal/abnor mal. AC VBE(BEAKER) (test mEq/L code = 8534029880) Lab Interpretation (test Abnormal code = 60641-0) [facility] A[facility]OMEN [id number] 17:02:17 No sonographic findings to explain patient's transaminitis. Status post cholecystectomy. Normal sonographic appearance of bilateral kidneys. No appreciable atrophyor cortical thinning. No hydronephrosis.RIGHT UPPER QUADRANT ABDOMINAL SONOGRAM TECHNIQUE: Grayscale and limited color Doppler images of the right upperquadrant of the abdomen were obtained. INDICATION: Transaminitis and acute renal failure. COMPARISON: 12/18/2019 FINDINGS: Limited exam due to patient body habitus and inability tocooperate during the exam. Liver measures 13.3 cm in craniocaudal dimension. No focal hepatic lesionsidentifiedto the extent visualized (exam limited by rib shadowing). Mainportal vein demonstrates normal hepatopedal flow. Main portal vein measures0.8 cm in AP diameter at [place] hepatis. Gallbladder is not visualized (surgically absent). CBD measures 4 mm in AP diameter at [place] hepatis, normal. No discernibleintrahepatic or extrahepatic biliary ductal dilatation. Right kidney measures 10.3 x 4.5 x 5.2 cm. Left kidney measures 11.2 x 4.9x 4.6 cm. No hydronephrosis or nephrolithiasis. Preservation of normalcorticomedullary differentiation. No appreciable atrophy or corticalthinning. Enlarged spleen measures 14.5 cm and clinical dimension. Visualized portions of the pancreatic head appear unremarkable. Majority ofthe pancreatic body, tail and uncinate process is obscured by bowel gasand/or not well seen. Proximal abdominal aorta measures 2.4 cm in AP diameter, normal. Noabnormal dilatation within the mid or distal abdominal aorta. Results portions of the IVC appear unremarkable. [facility], Radiant Results InftUser - 02/01/2020 12:03 PM CDTRIGHT UPPER QUADRANT ABDOMINAL SONOGRAMTECHNIQUE: Grayscale and limited color Doppler images of the right upperquadrant of the abdomen were obtained.INDICATION: Transaminitis and acute renal failure.COMPARISON: 12/18/2019FINDINGS: Limited exam due to patient body habitus and inability tocooperate during the exam.Liver measures 13.3 cm in craniocaudal dimension. No focal hepatic lesionsidentified to the extent visualized (exam limited by rib shadowing). Mainportal vein demonstrates normal hepatopedal flow. Main portal vein measures0.8 cm in AP diameter at [place] hepatis. Gallbladder is not visualized (surgically absent).CBD measures 4 mm in AP diameter at [place] hepatis, normal. No discernibleintrahepatic or extrahepatic biliary ductal dilatation.Right kidney measures 10.3 x 4.5 x 5.2 cm. Left kidney measures 11.2 x 4.9x 4.6 cm. No hydronephrosis or nephrolithiasis. Preservation of normalcorticomedullary differentiation. No appreciable atrophy or corticalthinning.Enlarged spleen measures 14.5 cm and clinical dimension.Visualized portions of the pancreatic head appear unremarkable. Majority ofthe pancreatic body, tail and uncinate process is obscured by bowel gasand/ornot well seen.Proximal abdominal aorta measures 2.4 cm in AP diameter, normal. Noabnormal dilatationwithin the mid or distal abdominal aorta.Results portions of the IVC appear unremarkable.IMPRESSIONNo sonographic findings to explain patient's transaminitis.Status post cholecystectomy.Normal sonographic appearance of bilateral kidneys. No appreciable atrophyor cortical thinning. No hydronephrosis.[facility]landUrine [id number] 16:35:00 Test Item Value Reference Range Interpretation Comments URINE CULTURE (test No aerobic growth (< code = 630-4) 1000 CFU/mL) [facility] PearlandDIFF CONSULT [id number] 15:41:00 MATURE LEUKOCYTES WITH REACTIVE LYMPHOCYTES, REACTIVE MONOCYTES AND OCCASIONAL TOXIC NEUTROPHILS. RARE HYPERSEGMENTED NEUTROPHILS. MACROCYTIC ANEMIA WITH POLYCHROMASIA AND POIKILOCYTOSIS INCLUDING RICK CELLS AND TARGET CELLS. THESE CHANGES ARE SUGGESTIVE OF EARLY VITAMIN B12 DEFICIENCY ANEMIA. AMPLEPLATELETS. [facility] GLUCOSE (AUTOMATED)2020-02-01 13:06:00 Test Item Value Reference Range Interpretation Comments POCT GLU (test code = 2166001837) 104 mg/dL 70-110 Lab Interpretation (test code = Normal 45078-6) [facility]landCOMP. METABOLIC PANEL (41708)2020-02-01 13:00:00 Test Item Value Reference Range Interpretation Comments NA (test code = 139 mmol/L 135-145 0569897089) K (test code = 4.1 mmol/L 3.5-5 1440091197) CL (test code = 112 mmol/L 98-108 H 8300130060) CO2 TOTAL (test code = 20 mmol/L 23-31 L 6737087203) AGAP (test code = 2-16 4486779481) BUN (test code = 16 mg/dL 7-23 3106470622) GLUCOSE (test code = 99 mg/dL 70-110 4327662088) CREATININE (test code = 0.85 mg/dL 0.5-1.04 9302579526) TOTAL BILI (test code = 1.3 mg/dL 0.1-1.1 H 9330995357) CALCIUM (test code = 8.6 mg/dL 8.6-10.6 3077603180) T PROTEIN (test code = 6.2 g/dL 6.3-8.2 L 4510496600) ALBUMIN (test code = 3.2 g/dL 3.5-5 L 6942414321) ALK PHOS (test code = 646 U/L 34-122 H 8562235223) ALTv (test code = 209 U/L 5-35 H 1742-6) AST(SGOT) (test code = 110 U/L 13-40 H 7940408227) eGFR Calculation mL/min/1.73m2 (Non-) (test code = 8368288232) eGFR Calculation mL/min/1.73m2 () (test code = 5162608367) KIM (test code = KIM) Association of Glomerular Filtration Rate (GFR) and Staging of Kidney Disease* + --+ --+ ------+| GFR (mL/min/1.73 m2) ?| With Kidney Damage ?| ?Without Kidney Damage+ --------+ --------+ +| ?>90 ?| ?Stage one ?| ? Normal ?+ ---+ ---+ -------+| ?60-89 ?| ?Stage two ?| ? Decreased GFR ? + --+ --+ ------+| ?30-59 ?| ?Stage three ?| ? Stage three ? + --+ --+ ------+| ?15-29 ?| ?Stage four ? | ? Stage four ?+ ---+ ---+ -------+| ?<15 (or dialysis) ? ?| ?Stage five ? | ? Stage five ?+ ---+ ---+ -------+ *Each stage assumes the associated GFR level has been in effect for at least three months. ?Stages 1 to 5, with or without kidney disease, indicate chronic kidney disease. Notes: Determination of stages one and two (with eGFR >59mL/min/1.73 m2) requires estimation of kidney damage for at least three months as defined by structural or functional abnormalities of the kidney, manifested by either:Pathological abnormalities or Markers of kidney damage (including abnormalities in the composition of the blood or urine or abnormalities in imaging tests). Lab Interpretation Abnormal (test code = 08607-1) [facility]landLIPASE2020-10-19 11:07:00 Test Item Value Reference Range Interpretation Comments LIPASE (test code = 0003178095) 353 U/L 0-220 H Lab Interpretation (test code = Abnormal 17384-1) [facility]landLITHIUM2020-10-19 11:05:00 Test Item Value Reference Range Interpretation Comments [place] (test code = 1.0 mmol/L 0.6-1.2 2967435685) KIM (test code = KIM) Toxic Range: ? Greater than 1.2 mmol/L Lab Interpretation (test Normal code = 17890-8) [facility]landCB with Yaklwdlbvrzg4906-11-72 10:56:00 Test Item Value Reference Range Interpretation Comments WBC (test code = See_Comment [Automated 6690-2) message] The sy stem which generated this result transmitted reference range : 4.30 - 11.10 10*3/?L. The reference range was not used to interpret this result as normal/abnormal . RBC (test code = See_Comment L [Automated 789-8) message] The sy stem which generated this result transmitted reference range : 3.93 - 5.25 10*6/?L. The reference range was not used to interpret this result as normal/abnormal . HGB (test code = 8.3 g/dL 11.6-15 L 718-7) HCT (test code = 26.1 % 35.7-45.2 L 4544-3) MCV (test code = 102.0 fL 80.6-95.5 H 787-2) MCH (test code = 32.4 pg 25.9-32.8 785-6) MCHC (test code = 31.8 g/dL 31.6-35.1 786-4) RDW-SD (test code = 49.7 fL 39-49.9 15693-4) RDW-CV (test code = 13.2 % 12-15.5 788-0) PLT (test code = See_Comment L [Automated 777-3) message] The sy stem which generated this result transmitted reference range : 166 - 358 10*3/ ?L. The reference r luca was not used to interpret this result as normal/abnormal . MPV (test code = 9.7 fL 9.5-12.9 81536-3) NRBC/100 WBC (test See_Comment [Automat ed code = 4970877945) message] The system which generated this result transmitted reference range : 0.0 - 10.0 /100 WBCs. The refer ence range was not u sed to interpret th is result as normal/abnormal . NRBC x10^3 (test code <0.01 See_Comment [Auto mated = 8872058399) message] The s ystem which generated this result transmitted reference range : 10*3/?L. The reference range was not used to interpret this result as normal/abnormal . GRAN MAT (NEUT) % 79.3 % (test code = 770-8) IMM GRAN % (test code 0.40 % = 9785981287) LYMPH % (test code = 11.4 % 736-9) MONO % (test code = 6.1 % 5905-5) EOS % (test code = 2.6 % 713-8) BASO % (test code = 0.2 % 706-2) GRAN MAT x10^3(ANC) 4.30 10*3/uL 1.88-7.09 (test code = 9971125972) IMM GRAN x10^3 (test <0.03 0-0.06 code = 3005786376) LYMPH x10^3 (test code 0.62 10*3/uL 1.32-3.29 L = 731-0) MONO x10^3 (test code 0.33 10*3/uL 0.33-0.92 = 742-7) EOS x10^3 (test code = 0.14 10*3/uL 0.03-0.39 711-2) BASO x10^3 (test code <0.03 0.01-0.07 = 704-7) Lab Interpretation Abnormal (test code = 29351-1) [facility] CANDICE ZARATE - [id number] 09:27:00 Test Item Value Reference Range Interpretation Comments RPR (Qualitative) (test code = Nonreactive Nonreactive 01591-9) Lab Interpretation (test code = Normal 16258-8) [facility]landVITAMIN B12, [id number] 06:47:00 Test Item Value Reference Range Interpretation Comments VIT B12 (test code = 257 pg/mL 240-930 8265031889) KIM (test code = KIM) Biotin has been reported to cause a positive bias, interpret results relative to patient's use of biotin. Lab Interpretation (test Normal code = 97057-3) [facility]landFOLATE2020-10-19 06:46:00 Test Item Value Reference Range Interpretation Comments FOLATE SER (test code = 15.7 ng/mL 3-20 Biot in has been 8567698771) reported to cau se a positive bias, interpret resul ts relative to patient's use o f biotin. Lab Interpretation (test Normal code = 37297-7) [facility] PearlandOSMOLALITY [id number] 05:47:00 Test Item Value Reference Range Interpretation Comments OSMOLALITY (test code = See_Comment [Au tomated message] 8734622855) The system [employer] generated this result transmitted ref erence range: 278 - 30 5 mOsm/kg. The re ference range was not u sed to interpret this result as normal/abnor mal. Lab Interpretation (test Normal code = 43174-1) [facility] PearlandFERRITIN [id number] 01:01:00 Test Item Value Reference Range Interpretation Comments FERRITIN (test code = 234.0 ng/mL 11-264 8989653920) KIM (test code = KIM) Biotin has been reported to cause a negative bias, interpret results relative to patient's use of biotin. Lab Interpretation (test Normal code = 52046-0) [facility] PearlandTHYROID STIMULATING [id number] 23:14:00 Test Item Value Reference Range Interpretation Comments TSH (test code = See_Comment Biotin has been 4365728660) reported to cau se a negative bias, interpret resul ts relative to pat ient's use of biotin. [Automated mess age] The system [employer] generated this result transmitted ref erence range: 0.45 - 4 .70 mIU/L. The refe rence range was not u sed to interpret this result as normal/abnor mal. Lab Interpretation (test Normal code = 88401-0) [facility] PearlandIRON [id number] 22:39:00 Test Item Value Reference Range Interpretation Comments IRON (test code = 68 ug/dL 50-160 Slight hem olysis 1256972704) TIBC (test code = 271 ug/dL 250-410 4042244073) % FE SAT (test code = 25 % 20-50 8089001241) Lab Interpretation (test Normal code = 16490-0) [facility] PearlandRETICULOCYTES [id number] 21:52:00 Test Item Value Reference Range Interpretation Comments RETIC Count Automated 2.17 % 0.51-1.9 H (test code = 6881508426) RETIC Absolute Count See_Comment [Autom ated message] (test code = 9327889248) The system which generated this result transmitted ref erence range: 0.0230 - 0.0950 10*6/?L. The reference range was not used to int erpret this result as normal/abnormal . IRF % (test code = 9.20 % 2.1-12.6 1281509642) RETIC-HE (test code = 35.1 pg 28.1-35.8 6785421011) Lab Interpretation (test Abnormal code = 48886-3) [facility]landABG+COOX+NA+K+GLU+CA2+2020-01-31 20:41:00 Test Item Value Reference Range Interpretation Comments PH (test code = 2) 7.35-7.45 L PCO2 (test code = See_Comment H [Automat ed message] 8025200154) The system [employer] generated this result transmit gulshan reference range : 35 - 45 mmHg. The reference range was not used to interpret this result as normal/abnormal . PO2 (test code = See_Comment L [Automated message] 3318135346) The system [employer] generated this result transmit gulshan reference range : 80 - 100 mmHg. The reference range was not used to interpret this result as normal/abnormal . HCO3 (test code = See_Comment L [Automate d message] 6816217453) The system [employer] generated this result transmit gulshan reference range : 22 - 26 mEq/L. The reference range was not used to interpret this result as normal/abnormal . BE (test code = See_Comment L [Automated message] 6302302296) The system [employer] generated this result transmit gulshan reference range : -3.0 - 3.0 mEq/ L. The reference r luca was not used to interpret this result as normal/abnormal . THB (test code = 9.8 g/dL 12-16 L 1370839115) %O2HB (test code = 94.0 % 94-99 7098719716) %COHB ART (test code = 0.0 % 0-1.5 7361824134) %METHB ART (test code = 0.3 % 0.4-1.5 L 5781104988) VOL%O2 ART (test code = 13.0 % 15-23 L 4167880807) NA (test code = 137 mmol/L 135-145 2187264357) K+ (test code = 4.0 mmol/L 3.5-5 0043463062) AC CA IONZ (test code = 5.10 mg/dL 4.5-5.3 0913427931) GLUCOSE (test code = 100 mg/dL 70-110 4506032485) Lab Interpretation Abnormal (test code = 51176-5) [facility] PearlandVALPROIC ACID, [id number] 19:51:00 Test Item Value Reference Range Interpretation Comments VALPROIC A (test code = <10 50-100 L 4810419867) KIM (test code = KIM) Toxic Range: ?Greater than 100 ug/mL Lab Interpretation (test Abnormal code = 68563-9) [facility] PearlandACETAMINOPHEN2020-10-18 19:42:00 Test Item Value Reference Range Interpretation Comments ACETAMINOP (test code = <10.0 10-30 L 6408192281) KIM (test code = KIM) Toxic: Greater than 200 ug/mL @ 4 hour post ingestion or greater than 50 ug/mL @ 12 hour post ingestion Lab Interpretation (test Abnormal code = 40899-0) [facility] PearlandLITHIUM2020-10-18 19:41:00 Test Item Value Reference Range Interpretation Comments [place] (test code = 1.4 mmol/L 0.6-1.2 H 7914953054) KIM (test code = KIM) Toxic Range: ? Greater than 1.2 mmol/L Lab Interpretation (test Abnormal code = 33945-8) [facility] PearlandSALICYLATE2020-10-18 19:41:00 Test Item Value Reference Range Interpretation Comments SALICYLATE (test code <10 mg/L = 2787606699) KIM (test code = KIM) Therapeutic Range: ? Analgesic and Antipyretic Use ? 20-100 mg/L ? ? Anti-Inflammatory Use ? 100-250 mg/L Toxic Range: ? Greater than 300 mg/L [facility] 1 [id number] 17:46:20Impression: No acute cardiopulmonary disease. RL: ?2601 AFC: ?[id number] Chest, one view History: ?AMS . Altered state of awareness Ordering Physician: ?KIRSTIN RON Findings: The lungs are clear without focal pneumonic consolidation,pleural effusion, or pneumothorax. ?The heart size is normal. ?Themediastinal contours are normal. ?No pulmonary edema. Several scatteredcalcified granulomas noted within both lungs. [facility], Radiant Results Inft User - 01/31/2020 12:47 PM CDTChest, one viewHistory: AMS . Altered state of awarenessOrdering Physician: KIRSTIN RON Findings: The lungs are clear without focal pneumonic consolidation,pleural effusion, or pneumothorax. The heart size is normal. Themediastinal contours are normal. No pulmonary edema. Several scatteredcalcified granulomas noted within both lungs.IMPRESSIONImpression: No acute cardiopulmonary disease. RL: 2601AFC: [id number] signed by Gatito Saul MD at 01/31/2020 12:46 PMUnAudie L. Murphy Memorial VA HospitalAbdomen 1 [id number] 17:42:04 1. Nonobstructive intestinal bowel gas pattern. RL: ?2601 AFC: ?43898 CLINICAL INFORMATION: Abdominal pain. Altered state of awareness Ordering Physician: ?KIRSTIN RON FINDINGS: Supine view of the abdomen was submitted on 3 separate images.Small amount of gas within the stomach. Bladder surgically absent. Gas andstool noted in the colon. No dilated loops of small bowel. [facility], Radiant Results Inft User - 01/31/2020 12:43 PM CDTCLINICAL INFORMATION: Abdominal pain. Altered state of awarenessOrdering Physician: KIRSTIN RON FINDINGS: Supine view of the abdomen was submitted on 3 separate images.Small amount of gas within the st omach. Bladder surgically absent. Gas andstool noted in the colon. No dilated loops of small bowel.IMPRESSION1. Nonobstructive intestinal bowel gas pattern.RL: 2601AFC: [id number] signed by Gatito Saul MD at 01/31/2020 12:42 PMUnAudie L. Murphy Memorial VA HospitalETHANOL2020-10-18 17:40:00 Test Item Value Reference Range Interpretation Comments ALCOHOL (test code = <10 mg/dL 7485618364) KIM (test code = KIM) <10 Vzwuzudm88-728 Toxic>100 Depression of RETAIL DIRECTOR>400 Fatalities Reported [facility] PearlandCREATINE [id number] 17:38:00 Test Item Value Reference Range Interpretation Comments CK (test code = 1614171372) 46 U/L 33-194 Slight hemolysis Lab Interpretation (test code Normal = 48831-5) [facility] PearlandCT Head W/O [id number] 17:05:24 Impression: 1. ?No acute intracranial process. 2. ?Small right mastoid effusion.Exam: CT HEAD WO CONTRAST Clinical History: Altered mental status (AMS), unclear cause Technique:Thin section CT brain with multiplanar reformats Comparison: CT brain dated 01/02/2019 Findings: Brainstem, cerebellum are w ithin normal limits. Ventricles are normal.There are no extra-axial collections. There is no evidence of intracranialhemorrhage. No focal mass, midline shift, mass effect is identified.Several hemispheres are within normal limits. Aspect score: 10. Basal cisterns are normal. Bone windows demonstrate anormal appearance of the skull base. Minimalfluid is noted in the right mastoid air cells. The paranasal sinuses are within normal limits. Included portions of the orbits are normal. The cranium is within normal limits without evidence for fracture. [facility], Radiant Results Inft User - 01/31/2020 12:06 PM CDTExam: CT HEAD WO CONTRASTClinical History: Altered mental status (AMS), unclear cause Technique:Thin section CT brain with multiplanar reformatsComparison: CT brain dated 01/02/2019Findings: Brainstem, cerebellum are within normal limits. Ventricles are normal.There are no extra-axial collections. There is no evidence of intracranialhemorrhage. No focal mass, midline shift, mass effect is identified.Several hemispheres are within normal limits.Aspect score: 10.Basal cisterns are normal.Bone windows demonstrate a normal appearance of the skull base. Minimalfluid is noted in the right mastoid air cells.The paranasal sinuses are within normal limits.Included portions of the orbits are normal.The cranium is within normal limits without evidence for fracture.IMPRESSIONImpression:1. No acute intracranial process.2. Small right mastoid effusion.[facility] / [facility] - DRUG SCREEN [id number] 16:57:00 Test Item Value Reference Range Interpretation Comments BENZO U (test code = Presumptive Negative A 8210919035) Positive SLIM U (test code = Negative Negative 7625424257) AMPHET (test code = Negative Negative 5915376409) THC (test code = Negative Negative 0393942346) METHADONE (test code Negative Negative = 1066070815) Meth U (test code = Negative Negative 8305780741) OPIATES (test code = Negative Negative 0942718682) Cocaine Metabolite Negative Negative (test code = 2719623368) PROPOXY (test code = Negative Negative 2443221448) Tric U (test code = Presumptive Negative A Confirma tion of 8288885747) Positive Presumptive Positive TCA result requires physician order and this will b e sent to referen ce lab. PCP (test code = Negative Negative 9249003454) OXYCOD (test code = Negative Negative 6283915393) KIM (test code = Urine Drug Cutoff KIM) Ranges Benzodiazepines: ? ? 150 ng/mLBarbiturates : ?200 ng/mLAmphetamine: ? 500 ng/mLCannabinoids : ?50 ?ng/mLMethadone: ? 200 ng/mLMethamphetam ine: ? ? 500 ng/mL Opiates: ? 100 ng/mL or 2000 ng/mLCocaine: ? 150 ng/mLPropoxyphene : ?300 ng/mLTricyclics: ?300 ng/mLOxycodone: ? 100 ng/mLPCP: ? 25 ?ng/mL The results are to be used only for medical (i.e., treatment) purposes. Unconfirmed screening results must not be used for non-medical purposes (e.g., employment testing, legal testing). Lab Interpretation Abnormal (test code = 42505-0) [facility] PearlandUrinalysis2020-10-18 16:54:00 Test Item Value Reference Range Interpretation Comments APPEARANCE (test code = Hazy Clear A 6618784107) COLOR (test code = Romelia Yellow A 1552201115) PH (test code = 4.8-8.0 0003594714) SP GRAVITY (test code = 1.003-1.030 9981762725) GLU U QUAL (test code = Normal Normal 7061100747) BLOOD (test code = Negative Negative 4892570231) KETONES (test code = Negative Negative 4715360910) PROTEIN (test code = 30 mg/dL Negative A 2887-8) UROBILIN (test code = 4.0 mg/dL Normal A 8798480684) BILIRUBIN (test code = Negative Negative 2383571576) NITRITE (test code = Negative Negative 6981206666) LEUK NICHOLE (test code = 25/uL Negative A 8276606214) RBC/HPF (test code = See_Comment [Autom ated message] 3155987587) The system [employer] generated this result transmit gulshan reference range : 0 - 3 HPF. The refe rence range was not u sed to interpret th is result as normal/abnormal . WBC/HPF (test code = See_Comment H [Autom ated message] 4174896463) The system [employer] generated this result transmit gulshan reference range : 0 - 5 HPF. The refe rence range was not u sed to interpret th is result as normal/abnormal . BACTERIA (test code = Few Negative A 8216724574) MUCOUS (test code = Moderate Negative LPF A 1745367796) SQ EPITH (test code = HPF 2780661048) HYAL CAST (test code = See_Comment H [Aut omated message] 5508315853) The system [employer] generated this result transmit gulshan reference range : <=2 LPF. The refere nce range was not u sed to interpret th is result as normal/abnormal . STELLA BEJARANO (test code = See_Comment H [Au tomated message] 9682280590) The system [employer] generated this result transmit gulshan reference range : <=1 LPF. The refere nce range was not u sed to interpret th is result as normal/abnormal . Lab Interpretation (test Abnormal code = 61898-5) [facility] NOW [facility]APID TESTING)2020-01-31 16:39:00 Test Item Value Reference Range Interpretation Comments SARS-CoV-2 Rapid ID NOW Not Detected Not Detected (test code = 06390-3) KIM (test code = KIM) ID NOW COVID-19 Assay is an isothermal nucleic acid amplification test intended for the qualitative detection of nucleic acid from SARS-CoV-2 viral RNA in nasopharyngeal (ENGLISH LANGUAGE LEARNER TEACHER) specimens. It is used under Emergency Use Authorization (EUA) by FDA. The limit of detection (LOD) of the assay is 125 Genome Equivalents/mL. A positive result is indicative of the presence of SARS-CoV-2 RNA. ?Clinical correlation with patient history and other diagnostic [...] for repeat patient testing if clinically indicated. Lab Interpretation Normal (test code = 49602-4) [facility]landTroponin [id number] 16:38:00 Test Item Value Reference Range Interpretation Comments TROPONIN I (test <0.012 See_Comment [Automated code = 4769725073) message] The system which generated this result transmitted reference range : <=0.034 ng/mL. The reference range was not used to interpr et this result as normal/abnormal . KIM (test code = Equal or Less than KIM) 0.034 ng/ml---Normal ?Note: Cardiac troponin begins to rise 3-4 hours after the onset of ischemia. Repeat in 4-6 hours if the sample was drawn within 3-4 hours of the onset of the symptom and found normal. Between 0.035 and 0.120 ng/mL--- Borderline. Questionable myocardial injury or necrosis ? ?Note: Serial measurement may be necessary to confirm or exclude the diagnosis of myocardial injury or necrosis; Clinical correlation (symptoms, EKGs, imaging studies, and others) required; Repeat in 4-6 hours if clinically indicated. ? Equal or Higher than 0.121 ng/mL---Abnormal. Myocardial Injury or Necrosis Likely ? Biotin has been reported to cause a negative bias, interpret results relative to patient's use of biotin. ? Lab Interpretation Normal (test code = 49027-8) [facility]landN-TERMINAL [id number] 16:34:00 Test Item Value Reference Range Interpretation Comments NT-proBNP (test code 283 pg/mL See_Comment H [Autom ated = 7457666466) message] The system which generated this result transmitted reference range : <=125. The reference range was not used to interpret this result as normal/abnormal . KIM (test code = KIM) Biotin has been reported to cause a negative bias, interpret results relative to patient's use of biotin. Lab Interpretation Abnormal (test code = 38814-9) [facility] (NA, K, CL, CO2, GLUCOSE, BUN, CREATININE, CA)2020-01-31 16:26:00 Test Item Value Reference Range Interpretation Comments NA (test code = 134 mmol/L 135-145 L 8466874958) K (test code = 4.9 mmol/L 3.5-5 4558094772) CL (test code = 107 mmol/L 98-108 3899947377) CO2 TOTAL (test code = 19 mmol/L 23-31 L 5862172344) AGAP (test code = 2-16 7946989912) BUN (test code = 30 mg/dL 7-23 H 0642376195) GLUCOSE (test code = 106 mg/dL 70-110 0163244703) CREATININE (test code = 2.21 mg/dL 0.5-1.04 H 7288228247) CALCIUM (test code = 9.5 mg/dL 8.6-10.6 5694562270) eGFR Calculation mL/min/1.73m2 (Non-) (test code = 3208263124) eGFR Calculation mL/min/1.73m2 () (test code = 5295153756) KIM (test code = KIM) Association of Glomerular Filtration Rate (GFR) and Staging of Kidney Disease* + --+ --+ ------+| GFR (mL/min/1.73 m2) ?| With Kidney Damage ?| ?Without Kidney Damage+ --------+ --------+ +| ?>90 ?| ?Stage one ?| ? Normal ?+ ---+ ---+ -------+| ?60-89 ?| ?Stage two ?| ? Decreased GFR ? + --+ --+ ------+| ?30-59 ?| ?Stage three ?| ? Stage three ? + --+ --+ ------+| ?15-29 ?| ?Stage four ? | ? Stage four ?+ ---+ ---+ -------+| ?<15 (or dialysis) ? ?| ?Stage five ? | ? Stage five ?+ ---+ ---+ -------+ *Each stage assumes the associated GFR level has been in effect for at least three months. ?Stages 1 to 5, with or without kidney disease, indicate chronic kidney disease. Notes: Determination of stages one and two (with eGFR >59mL/min/1.73 m2) requires estimation of kidney damage for at least three months as defined by structural or functional abnormalities of the kidney, manifested by either:Pathological abnormalities or Markers of kidney damage (including abnormalities in the composition of the blood or urine or abnormalities in imaging tests). Lab Interpretation Abnormal (test code = 16492-3) [facility] (ALB, T.PRO, BILI T, BU/BC, ALT, AST, ALK PHOS)2020-01-31 16:26:00 Test Item Value Reference Range Interpretation Comments TOTAL BILI (test code = 8343423790) 1.5 mg/dL 0.1-1.1 H BILI UNCON (test code = 2258617988) 0.4 mg/dL 0.1-1.1 BILI CONJ (test code = 4700810364) 0.0 mg/dL 0-0.3 T PROTEIN (test code = 6563368904) 8.0 g/dL 6.3-8.2 ALBUMIN (test code = 9383782904) 4.0 g/dL 3.5-5 ALK PHOS (test code = 7431646067) 714 U/L 34-122 H ALTv (test code = 1742-6) 352 U/L 5-35 H AST(SGOT) (test code = 4498993670) 256 U/L 13-40 H Lab Interpretation (test code = Abnormal 70209-7) [facility]landLipase [id number] 16:26:00 Test Item Value Reference Range Interpretation Comments LIPASE (test code = 0299557730) 410 U/L 0-220 H Lab Interpretation (test code = Abnormal 73986-8) [facility]landAMMONIA, [id number] 16:25:00 Test Item Value Reference Range Interpretation Comments AMMONIA (test code = 32 umol/L 9-33 Slight hemolysis 7728140319) Lab Interpretation (test Normal code = 41733-8) [facility]landCB with [id number] 16:13:00 Test Item Value Reference Range Interpretation Comments WBC (test code = See_Comment [Automated 6690-2) message] The sy stem which generated this result transmitted reference range : 4.30 - 11.10 10*3/?L. The reference range was not used to interpret this result as normal/abnormal . RBC (test code = See_Comment L [Automated 789-8) message] The sy stem which generated this result transmitted reference range : 3.93 - 5.25 10*6/?L. The reference range was not used to interpret this result as normal/abnormal . HGB (test code = 9.8 g/dL 11.6-15 L 718-7) HCT (test code = 31.7 % 35.7-45.2 L 4544-3) MCV (test code = 101.9 fL 80.6-95.5 H 787-2) MCH (test code = 31.5 pg 25.9-32.8 785-6) MCHC (test code = 30.9 g/dL 31.6-35.1 L 786-4) RDW-SD (test code = 51.4 fL 39-49.9 H 05260-1) RDW-CV (test code = 13.7 % 12-15.5 788-0) PLT (test code = See_Comment [Automated 777-3) message] The sy stem which generated this result transmitted reference range : 166 - 358 10*3/ ?L. The reference r luca was not used to interpret this result as normal/abnormal . MPV (test code = 10.3 fL 9.5-12.9 82159-5) NRBC/100 WBC (test See_Comment [Automat ed code = 1533682570) message] The system which generated this result transmitted reference range : 0.0 - 10.0 /100 WBCs. The refer ence range was not u sed to interpret th is result as normal/abnormal . NRBC x10^3 (test code <0.01 See_Comment [Auto mated = 1594669064) message] The s ystem which generated this result transmitted reference range : 10*3/?L. The reference range was not used to interpret this result as normal/abnormal . GRAN MAT (NEUT) % 77.1 % (test code = 770-8) IMM GRAN % (test code 0.40 % = 8432898220) LYMPH % (test code = 12.2 % 736-9) MONO % (test code = 5.7 % 5905-5) EOS % (test code = 4.3 % 713-8) BASO % (test code = 0.3 % 706-2) GRAN MAT x10^3(ANC) 5.97 10*3/uL 1.88-7.09 (test code = 8160142254) IMM GRAN x10^3 (test 0.03 10*3/uL 0-0.06 code = 6851932129) LYMPH x10^3 (test code 0.94 10*3/uL 1.32-3.29 L = 731-0) MONO x10^3 (test code 0.44 10*3/uL 0.33-0.92 = 742-7) EOS x10^3 (test code = 0.33 10*3/uL 0.03-0.39 711-2) BASO x10^3 (test code <0.03 0.01-0.07 = 704-7) Lab Interpretation Abnormal (test code = 07883-9) [facility]landLactic Acid Whole [id number] 16:03:00 Test Item Value Reference Range Interpretation Comments LACTIC ACID (test code = 1.03 mmol/L 0.3-2.6 1225783720) Lab Interpretation (test code = Normal 27388-3) [facility]landCT ABDOMEN PELVIS W [id number] 23:00:141. ?Mild circumferential urinary bladder wall thickening out of proportionto degree of distention with subtle urothelial hyperenhancement. Correlatewith UA to exclude UTI/cystitis. 2. ?Otherwise, no radiographic findings to explain patient's abdominalpain. 3. ?Status post cholecystectomy and pneumobilia. Correlate with proceduralhistory including sphincterectomy. 4. ?Technically indeterminate uncinate process 1.2 cm lesion withoutdiscernible connection to the pancreatic duct, unchanged since February2019. Recommend MRI/MRCP.CT ABDOMEN AND PELVIS WITH CONTRAST REASON FOR STUDY: Abd pain, acute, generalized COMPARISON: None available. TECHNIQUE: Multidetector axial CT images from lung bases through proximalthighs after IV administration of nonionic iodinated contrast material.Coronal and sagittalMPR images also generated. INTRAVENOUS CONTRAST ADMINISTRATION (mL Omnipaque 350): 120. FINDINGS: Lower chest: Clear lung bases. ABDOMEN AND PELVISLiver: No focal hepatic lesion identified. Biliary Tract/GB: Status post cholecystectomy. Small central pneumobiliawith gas extending into the nondilated CBD. No biliary ductal dilatation. Spleen: No splenomegaly. Pancreas: Technically indeterminate 1.3 cm hypoattenuation within theuncinate process (3:65 and 5:46) does not appear to be in continue with thewith the pancreatic duct. No significant pancreatic atrophy. Adrenals: Within normal limits. Kidneys: Kidneys enhance symmetrically. No hydronephrosis ornephrolithiasis. 7 mm hypoattenuating lesion within the right upper renalpole is too small to characterize (3:68). Mildly lobulated bilateral renalcontour. Bowel: No abnormal bowel dilatation or wall thickening. Appendix is notvisualized with suggestion of appendectomy. Peritoneum: No free fluid or pneumoperitoneum. Vasculature: Within normal limits. Lymph Nodes: Within normal limits. ? Pelvic organs: Circumferential urinary bladder wall thickening out ofproportion to degree of distention and with subtle urothelialhyperenhancement. Uterus and ovaries are unremarkable for patient's age. Abdominal/Pelvic Wall: Tiny fat-containing umbilical hernia. BONES: No acute or aggressive osseous unremarkable. No laryngealdegenerative changes scattered throughout the visualized spine. [facility], Radiant Results Inft User - 12/18/2019 6:01 PM CDTCT ABDOMEN AND PELVIS WITH CONTRASTREASON FOR STUDY: Abd pain, acute, generalized COMPARISON: None available.TECHNIQUE: Multidetector axial CT images from lung bases through proximalthighs after IV administration of nonionic iodinated contrast material.Coronal and sagittal MPR images also gen erated.INTRAVENOUS CONTRAST ADMINISTRATION (mL Omnipaque 350): 120.FINDINGS: Lower chest: Clear lungbases.ABDOMEN AND PELVISLiver: No focal hepatic lesion identified.Biliary Tract/GB: Status post cholecystectomy. Small central pneumobiliawith gas extending into the nondilated CBD. No biliary ductal di latation.Spleen: No splenomegaly.Pancreas: Technically indeterminate 1.3 cm hypoattenuation within theuncinate process (3:65 and 5:46) does not appear to be in continue with thewith the pancreatic duct. No significant pancreatic atrophy. Adrenals: Within normal limits.Kidneys: Kidneys enhance symmetrically. No hydronephrosis ornephrolithiasis. 7 mm hypoattenuating lesion within the right upper renalpole is too small to characterize (3:68). Mildly lobulated bilateral renalcontour.Bowel: No abnormal bowel dilatation or wall thickening. Appendix is notvisualized with suggestion of appendectomy.Peritoneum: No free fluid or pneumoperitoneum.Vasculature: Within normal limits.Lymph Nodes: Within normal li mits. Pelvic organs: Circumferential urinary bladder wall thickening outofproportion to degree of distention and with subtle urothelialhyperenhancement. Uterus and ovaries are unremarkable for patient's age.Abdominal/Pelvic Wall: Tiny fat-containing umbilical hernia.BONES:No acute or aggressive osseous unremarkable. No laryngealdegenerative changes scattered throughout the visualized spine.IMPRESSION1. Mild circumferential urinary bladder wall thickening out of proportionto degree of distention with subtle urothelial hyperenhancement. Correlatewith UA to exclude UTI/cystitis.2. Otherwise, no radiographic findings to explain patient's abdominalpain.3. Status post cholecystectomy and pneumobilia. Correlate with proceduralhistory including sphincterectomy. 4. Technically indeterminate uncinate process 1.2 cm lesion withoutdiscernible connection to the pancreatic duct, unchanged since February2019. Recommend MRI/MRCP.[facility] I 2019-12-18 21:36:00 Test Item Value Reference Range Interpretation Comments TROPONIN I (test <0.012 See_Comment [Automated code = 1743795093) message] The system which generated this result transmitted reference range : <=0.034 ng/mL. The reference range was not used to interpr et this result as normal/abnormal . KIM (test code = Equal or Less than KIM) 0.034 ng/ml---Normal ?Note: Cardiac troponin begins to rise 3-4 hours after the onset of ischemia. Repeat in 4-6 hours if the sample was drawn within 3-4 hours of the onset of the symptom and found normal. Between 0.035 and 0.120 ng/mL--- Borderline. Questionable myocardial injury or necrosis ? ?Note: Serial measurement may be necessary to confirm or exclude the diagnosis of myocardial injury or necrosis; Clinical correlation (symptoms, EKGs, imaging studies, and others) required; Repeat in 4-6 hours if clinically indicated. ? Equal or Higher than 0.121 ng/mL---Abnormal. Myocardial Injury or Necrosis Likely ? Biotin has been reported to cause a negative bias, interpret results relative to patient's use of biotin. ? Lab Interpretation Normal (test code = 18810-1) [facility]landUrinalysis2020-09-04 21:30:00 Test Item Value Reference Range Interpretation Comments APPEARANCE (test code = Clear Clear 4720454443) COLOR (test code = Yellow Yellow 5292722841) PH (test code = 4.8-8.0 0268338606) SP GRAVITY (test code = 1.003-1.030 8703532422) GLU U QUAL (test code = Normal Normal 3567297117) BLOOD (test code = Negative Negative 8667007639) KETONES (test code = Negative Negative 8984780199) PROTEIN (test code = Negative Negative 2887-8) UROBILIN (test code = 4.0 mg/dL Normal A 6471111061) BILIRUBIN (test code = Negative Negative 9010122001) NITRITE (test code = Negative Negative 2305253513) LEUK NICHOLE (test code = Negative Negative 5868044871) RBC/HPF (test code = See_Comment [Autom ated message] 6265565294) The system [employer] generated this result transmit gulshan reference range : 0 - 3 HPF. The refe rence range was not u sed to interpret th is result as normal/abnormal . WBC/HPF (test code = See_Comment [Autom ated message] 5340705273) The system [employer] generated this result transmit gulshan reference range : 0 - 5 HPF. The refe rence range was not u sed to interpret th is result as normal/abnormal . BACTERIA (test code = Few Negative A 4094730179) MUCOUS (test code = Slight Negative LPF A 7518665526) SQ EPITH (test code = HPF 1607581943) HYAL CAST (test code = See_Comment [Aut omated message] 2211178767) The system [employer] generated this result transmit gulshan reference range : <=2 LPF. The refere nce range was not u sed to interpret th is result as normal/abnormal . Lab Interpretation (test Abnormal code = 02455-9) [facility] with [id number] 21:29:00 Test Item Value Reference Range Interpretation Comments WBC (test code = See_Comment L [Automated 0590-2) message] The sy stem which generated this result transmitted reference range : 4.30 - 11.10 10*3/?L. The reference range was not used to interpret this result as normal/abnormal . RBC (test code = See_Comment L [Automated 789-8) message] The sy stem which generated this result transmitted reference range : 3.93 - 5.25 10*6/?L. The reference range was not used to interpret this result as normal/abnormal . HGB (test code = 10.3 g/dL 11.6-15 L 718-7) HCT (test code = 32.5 % 35.7-45.2 L 4544-3) MCV (test code = 99.7 fL 80.6-95.5 H 787-2) MCH (test code = 31.6 pg 25.9-32.8 785-6) MCHC (test code = 31.7 g/dL 31.6-35.1 786-4) RDW-SD (test code = 54.6 fL 39-49.9 H 57218-4) RDW-CV (test code = 14.9 % 12-15.5 788-0) PLT (test code = See_Comment L [Automated 777-3) message] The sy stem which generated this result transmitted reference range : 166 - 358 10*3/ ?L. The reference r luca was not used to interpret this result as normal/abnormal . MPV (test code = 9.5 fL 9.5-12.9 21001-4) IPF % (test code = 1.5 % 1.3-7.7 Platelet count 4191046518) measured by fluorescence method. NRBC/100 WBC (test See_Comment [Automat ed code = 8562800782) message] The system which generated this result transmitted reference range : 0.0 - 10.0 /100 WBCs. The refer ence range was not u sed to interpret th is result as normal/abnormal . NRBC x10^3 (test code <0.01 See_Comment [Auto mated = 3149559806) message] The s ystem which generated this result transmitted reference range : 10*3/?L. The reference range was not used to interpret this result as normal/abnormal . GRAN MAT (NEUT) % 64.0 % (test code = 770-8) IMM GRAN % (test code 1.00 % = 9613927988) LYMPH % (test code = 22.5 % 736-9) MONO % (test code = 11.0 % 5905-5) EOS % (test code = 1.0 % 713-8) BASO % (test code = 0.5 % 706-2) GRAN MAT x10^3(ANC) 2.61 10*3/uL 1.88-7.09 (test code = 7983792638) IMM GRAN x10^3 (test 0.04 10*3/uL 0-0.06 code = 9135316771) LYMPH x10^3 (test code 0.92 10*3/uL 1.32-3.29 L = 731-0) MONO x10^3 (test code 0.45 10*3/uL 0.33-0.92 = 742-7) EOS x10^3 (test code = 0.04 10*3/uL 0.03-0.39 711-2) BASO x10^3 (test code <0.03 0.01-0.07 = 704-7) Lab Interpretation Abnormal (test code = 57070-9) [facility] Metabolic Panel (NA, K, CL, CO2, GLUCOSE, BUN, CREATININE, CA)2019-12-18 21:25:00 Test Item Value Reference Range Interpretation Comments NA (test code = 138 mmol/L 135-145 6897986601) K (test code = 4.8 mmol/L 3.5-5 8976717132) CL (test code = 104 mmol/L 98-108 1632711987) CO2 TOTAL (test code = 27 mmol/L 23-31 8518471226) AGAP (test code = 2-16 2451249165) BUN (test code = 12 mg/dL 7-23 3047178866) GLUCOSE (test code = 101 mg/dL 70-110 5685148595) CREATININE (test code 0.70 mg/dL 0.5-1.04 = 1645487376) CALCIUM (test code = 9.3 mg/dL 8.6-10.6 7557984769) eGFR Calculation mL/min/1.73m2 (Non-) (test code = 3956574711) eGFR Calculation mL/min/1.73m2 () (test code = 8381273891) KIM (test code = KIM) Association of Glomerular Filtration Rate (GFR) and Staging of Kidney Disease* + -+ + ---+| GFR (mL/min/1.73 m2) ?| With Kidney Damage ?| ?Without Kidney Damage+ -------+ ------+ ---------+| ?>90 ?| ?Stage one ?| ? Normal ?+ --+ -+ ----+| ?60-89 ?| ?Stage two ?| ? Decreased GFR ? + -+ + ---+| ?30-59 ?| ?Stage three ?| ? Stage three ? + -+ + ---+| ?15-29 ?| ?Stage four ? | ? Stage four ?+ --+ -+ ----+| ?<15 (or dialysis) ? ?| ?Stage five ? | ? Stage five ?+ --+ -+ ----+ *Each stage assumes the associated GFR level has been in effect for at least three months. ?Stages 1 to 5, with or without kidney disease, indicate chronic kidney disease. Notes: Determination of stages one and two (with eGFR >59mL/min/1.73 m2) requires estimation of kidney damage for at least three months as defined by structural or functional abnormalities of the kidney, manifested by either:Pathological abnormalities or Markers of kidney damage (including abnormalities in the composition of the blood or urine or abnormalities in imaging tests). [facility] (ALB, T.PRO, BILI T, BU/BC, ALT, AST, ALK PHOS)2019-12-18 21:25:00 Test Item Value Reference Range Interpretation Comments TOTAL BILI (test code = 1265564924) 1.0 mg/dL 0.1-1.1 BILI UNCON (test code = 4950434918) 0.6 mg/dL 0.1-1.1 BILI CONJ (test code = 0581049667) 0.0 mg/dL 0-0.3 T PROTEIN (test code = 0745941564) 7.8 g/dL 6.3-8.2 ALBUMIN (test code = 1060413403) 4.3 g/dL 3.5-5 ALK PHOS (test code = 1519232079) 580 U/L 34-122 H ALTv (test code = 1742-6) 199 U/L 5-35 H AST(SGOT) (test code = 2102374703) 215 U/L 13-40 H Lab Interpretation (test code = Abnormal 20595-6) [facility]landLipase [id number] 21:25:00 Test Item Value Reference Range Interpretation Comments LIPASE (test code = 7286113087) 267 U/L 0-220 H Lab Interpretation (test code = Abnormal 29676-6) [facility]landXR CHEST 1 VW [id number] 02:17:38 No findings suggestive of COVID-19 pneumonia. Disclaimer: Generally, the findings on chest imaging in COVID-19 are notspecific, and overlap with other infections, including influenza, H1N1,SARS and MERS.According to the Centers for Disease Control (CDC) and the [place] [employer], viral testing remains the only specific method of diagnosiseven if CXR or CT findings are suggestive of COVID-19. Preliminary Report Dictated by Resident: Ritchie Malik MD., have reviewed this study and agree with the abovereport.PROCEDURE: CHEST XRAY CLINICAL INDICATION: chest pain COMPARISON: Chest radiograph 02/23/2019 FINDINGS: The lungs are clear except for a subcentimeter calcified granuloma at theright lung, unchanged. No pleural effusion or pneumothorax is detected. The heart is mildly enlarged. No acute bony abnormality. [facility], Radiant Results Inft User - 08/21/2019 9:18 PM CDTPROCEDURE: CHEST XRAY CLINICAL INDICATION: chest pain COMPARISON: Chest radiograph 02/23/2019FINDINGS:The lungs are clear except for a subcentimeter calcified granuloma at theright lung, unchanged. No pleural effusion or pneumothorax is detected.The heart is mildly enlarged. No acute bony abnormality.IMPRESSIONNo findings suggestive of COVID-19 pneumonia.Disclaimer: Generally, the findings on chest imaging in COVID-19 are notspecific, and overlap with other infections, including influenza, H1N1,SARS and MERS.According to the Centers for Disease Control (CDC) and the [place] [employer], viraltesting remains the only specific method of diagnosiseven if CXR or CT findings are suggestive of COVID-19. Preliminary Report Dictated by Resident: Ritchie Merchant MD., have reviewed this study and agree with the abovereport.[facility] CORONAVIRUS COVID-19 [id number] 02:11:00 Test Item Value Reference Range Interpretation Comments SARS-CoV-2 (test code = Not Detected Not Detected 01847-8) KIM (test code = KIM) ID NOW COVID-19 Assay is an isothermal nucleic acid amplification test intended for the qualitative detection of nucleic acid from SARS-CoV-2 viral RNA in nasopharyngeal (ENGLISH LANGUAGE LEARNER TEACHER) specimens. It is used under Emergency Use Authorization (EUA) by FDA. The limit of detection (LOD) of the assay is 125 Genome Equivalents/mL. A positive result is indicative of the presence of SARS-CoV-2 RNA. ?Clinical correlation with patient history and other diagnostic information is necessary to determine patient infection status. A negative (Not Detected) result does not preclude SARS-CoV-2 infection. Clinical correlation with patient history and other diagnostic information should be used in patient management decisions. Invalid: Please collect a new specimen for repeat patient testing if clinically indicated. Lab Interpretation Normal (test code = 04299-2) [facility]landTROPONIN [id number] 01:42:00 Test Item Value Reference Range Interpretation Comments TROPONIN I (test <0.012 See_Comment [Automated code = 9584066579) message] The system which generated this result transmitted reference range : <=0.034 ng/mL. The reference range was not used to interpr et this result as normal/abnormal . KIM (test code = Equal or Less than KIM) 0.034 ng/ml---Normal ?Note: Cardiac troponin begins to rise 3-4 hours after the onset of ischemia. Repeat in 4-6 hours if the sample was drawn within 3-4 hours of the onset of the symptom and found normal. Between 0.035 and 0.120 ng/mL--- Borderline. Questionable myocardial injury or necrosis ? ?Note: Serial measurement may be necessary to confirm or exclude the diagnosis of myocardial injury or necrosis; Clinical correlation (symptoms, EKGs, imaging studies, and others) required; Repeat in 4-6 hours if clinically indicated. ? Equal or Higher than 0.121 ng/mL---Abnormal. Myocardial Injury or Necrosis Likely ? Biotin has been reported to cause a negative bias, interpret results relative to patient's use of biotin. ? Lab Interpretation Normal (test code = 71502-0) [facility]. METABOLIC PANEL (70450)2019-08-22 01:30:00 Test Item Value Reference Range Interpretation Comments NA (test code = 142 mmol/L 135-145 4110444482) K (test code = 4.1 mmol/L 3.5-5 9476943558) CL (test code = 106 mmol/L 98-108 2114391662) CO2 TOTAL (test code = 28 mmol/L 23-31 2542260938) AGAP (test code = 2-16 2755764797) BUN (test code = 16 mg/dL 7-23 0668285842) GLUCOSE (test code = 141 mg/dL 70-110 H 4435753921) CREATININE (test code = 0.75 mg/dL 0.5-1.04 7695221465) TOTAL BILI (test code = 0.8 mg/dL 0.1-1.3 6059519004) CALCIUM (test code = 9.6 mg/dL 8.6-10.6 2283708007) T PROTEIN (test code = 7.8 g/dL 6.3-8.2 7232712025) ALBUMIN (test code = 4.1 g/dL 3.5-5 7530071595) ALK PHOS (test code = 664 U/L 34-122 H 2697364903) ALTv (test code = 82 U/L 5-35 H 1742-6) AST(SGOT) (test code = 111 U/L 13-40 H 4890093137) eGFR Calculation mL/min/1.73m2 (Non-) (test code = 6786049640) eGFR Calculation mL/min/1.73m2 () (test code = 9447857496) KIM (test code = KIM) Association of Glomerular Filtration Rate (GFR) and Staging of Kidney Disease* + --+ --+ ------+| GFR (mL/min/1.73 m2) ?| With Kidney Damage ?| ?Without Kidney Damage+ --------+ --------+ +| ?>90 ?| ?Stage one ?| ? Normal ?+ ---+ ---+ -------+| ?60-89 ?| ?Stage two ?| ? Decreased GFR ? + --+ --+ ------+| ?30-59 ?| ?Stage three ?| ? Stage three ? + --+ --+ ------+| ?15-29 ?| ?Stage four ? | ? Stage four ?+ ---+ ---+ -------+| ?<15 (or dialysis) ? ?| ?Stage five ? | ? Stage five ?+ ---+ ---+ -------+ *Each stage assumes the associated GFR level has been in effect for at least three months. ?Stages 1 to 5, with or without kidney disease, indicate chronic kidney disease. Notes: Determination of stages one and two (with eGFR >59mL/min/1.73 m2) requires estimation of kidney damage for at least three months as defined by structural or functional abnormalities of the kidney, manifested by either:Pathological abnormalities or Markers of kidney damage (including abnormalities in the composition of the blood or urine or abnormalities in imaging tests). Lab Interpretation Abnormal (test code = 12398-5) [facility], [id number] 01:30:00 Test Item Value Reference Range Interpretation Comments LIPASE (test code = 3037398528) 87 U/L 0-220 Lab Interpretation (test code = Normal 28092-2) [facility]PTT2020-05-09 01:29:00 Test Item Value Reference Range Interpretation Comments APTT Patient (test See_Comment [Automat ed code = 3173-2) message] The system which generated this result transmitted reference range : 23 - 38 Seconds . The reference range was not used to interpr et this result as normal/abnormal . KIM (test code = KIM) The [facility] patient population mean normal value for aPTT is 30 seconds. Lab Interpretation Normal (test code = 27212-2) [facility]landPROTHROMBIN TIME / [id number] 01:27:00 Test Item Value Reference Range Interpretation Comments PROTIME PATIENT (test See_Comment [Auto mated message] code = 5964-2) The system wh ich generated this result transmitted ref erence range: 12.0 - 1 4.7 Seconds. The re ference range was not u sed to interpret this result as normal/abnor mal. INR (test code = 6301-6) Nor mal INR <1.1; Warfarin Therap eutic range 2.0 to 3. 0 or 2.5 to 3.5, dep ending upon the indica tions. Lab Interpretation (test Normal code = 22332-5) [facility]land[facility]INALYSIS2020-05-09 01:25:00 Test Item Value Reference Range Interpretation Comments APPEARANCE (test code = Hazy Clear A 7796031808) COLOR (test code = Romelia Yellow A 2639579088) PH (test code = 4.8-8.0 0070176135) SP GRAVITY (test code = 1.003-1.030 5688149092) GLU U QUAL (test code = Normal Normal 9572774606) BLOOD (test code = Negative Negative 5058411508) KETONES (test code = Negative Negative 7443057416) PROTEIN (test code = 30 mg/dL Negative A 2887-8) UROBILIN (test code = 4.0 mg/dL Normal A 7078513891) BILIRUBIN (test code = Negative Negative 4443882924) NITRITE (test code = Positive Negative A 7207475650) LEUK NICHOLE (test code = 500/uL Negative A 6482191677) RBC/HPF (test code = See_Comment H [Autom ated message] 7845401575) The system [employer] generated this result transmit gulshan reference range : 0 - 3 HPF. The refe rence range was not u sed to interpret th is result as normal/abnormal . WBC/HPF (test code = See_Comment H [Autom ated message] 6476598731) The system [employer] generated this result transmit gulshan reference range : 0 - 5 HPF. The refe rence range was not u sed to interpret th is result as normal/abnormal . BACTERIA (test code = Many Negative A 0522092236) MUCOUS (test code = Moderate Negative LPF A 0802526901) SQ EPITH (test code = HPF 4872145490) Lab Interpretation (test Abnormal code = 52153-2) [facility] WITH [id number] 01:18:00 Test Item Value Reference Range Interpretation Comments WBC (test code = See_Comment L [Automated 9590-2) message] The sy stem which generated this result transmitted reference range : 4.30 - 11.10 10*3/?L. The reference range was not used to interpret this result as normal/abnormal . RBC (test code = See_Comment L [Automated 529-8) message] The sy stem which generated this result transmitted reference range : 3.93 - 5.25 10*6/?L. The reference range was not used to interpret this result as normal/abnormal . HGB (test code = 10.4 g/dL 11.6-15 L 718-7) HCT (test code = 32.5 % 35.7-45.2 L 4544-3) MCV (test code = 95.0 fL 80.6-95.5 787-2) MCH (test code = 30.4 pg 25.9-32.8 785-6) MCHC (test code = 32.0 g/dL 31.6-35.1 786-4) RDW-SD (test code = 44.3 fL 39-49.9 44355-3) RDW-CV (test code = 12.6 % 12-15.5 788-0) PLT (test code = See_Comment [Automated 777-3) message] The sy stem which generated this result transmitted reference range : 166 - 358 10*3/ ?L. The reference r luca was not used to interpret this result as normal/abnormal . MPV (test code = 9.1 fL 9.5-12.9 L 83585-2) NRBC/100 WBC (test See_Comment [Automat ed code = 2534448744) message] The system which generated this result transmitted reference range : 0.0 - 10.0 /100 WBCs. The refer ence range was not u sed to interpret th is result as normal/abnormal . NRBC x10^3 (test code <0.01 See_Comment [Auto mated = 9008480339) message] The s ystem which generated this result transmitted reference range : 10*3/?L. The reference range was not used to interpret this result as normal/abnormal . GRAN MAT (NEUT) % 71.0 % (test code = 770-8) IMM GRAN % (test code 1.70 % = 5276184141) LYMPH % (test code = 16.1 % 736-9) MONO % (test code = 9.8 % 5905-5) EOS % (test code = 1.1 % 713-8) BASO % (test code = 0.3 % 706-2) GRAN MAT x10^3(ANC) 2.47 10*3/uL 1.88-7.09 (test code = 1340303609) IMM GRAN x10^3 (test 0.06 10*3/uL 0-0.06 code = 9491846829) LYMPH x10^3 (test code 0.56 10*3/uL 1.32-3.29 L = 731-0) MONO x10^3 (test code 0.34 10*3/uL 0.33-0.92 = 742-7) EOS x10^3 (test code = 0.04 10*3/uL 0.03-0.39 711-2) BASO x10^3 (test code <0.03 0.01-0.07 = 704-7) Lab Interpretation Abnormal (test code = 73716-6) [facility]landTroponin [id number] 23:39:00 Test Item Value Reference Range Interpretation Comments TROPONIN I (test 0.005 ng/mL See_Comment [Automated code = 4171770863) message] The system which generated this result transmitted reference range : <=0.034. The reference range was not used to interpret this result as normal/abnormal . KIM (test code = Equal or Less than KIM) 0.034 ng/ml---Normal ?Note: Cardiac troponin begins to rise 3-4 hours after the onset of ischemia. Repeat in 4-6 hours if the sample was drawn within 3-4 hours of the onset of the symptom and found normal. Between 0.035 and 0.120 ng/mL--- Borderline. Questionable myocardial injury or necrosis ? ?Note: Serial measurement may be necessary to confirm or exclude the diagnosis of myocardial injury or necrosis; Clinical correlation (symptoms, EKGs, imaging studies, and others) required; Repeat in 4-6 hours if clinically indicated. ? Equal or Higher than 0.121 ng/mL---Abnormal. Myocardial Injury or Necrosis Likely ? Biotin has been reported to cause a negative bias, interpret results relative to patient's use of biotin. ? Lab Interpretation Normal (test code = 43278-5) [facility]landBasi Metabolic Panel (NA, K, CL, CO2, GLUCOSE, BUN, CREATININE, CA)2019-06-25 23:27:00 Test Item Value Reference Range Interpretation Comments NA (test code = 138 mmol/L 135-145 4078331649) K (test code = 4.3 mmol/L 3.5-5 2649926938) CL (test code = 103 mmol/L 98-108 7649861600) CO2 TOTAL (test code = 27 mmol/L 23-31 7481981281) AGAP (test code = 2-16 5508438413) BUN (test code = 16 mg/dL 7-23 6816409499) GLUCOSE (test code = 106 mg/dL 70-110 0229283546) CREATININE (test code 0.66 mg/dL 0.5-1.04 = 7800588658) CALCIUM (test code = 9.1 mg/dL 8.6-10.6 9931286811) eGFR Calculation mL/min/1.73m2 (Non-) (test code = 7884281280) eGFR Calculation mL/min/1.73m2 () (test code = 4479452605) KIM (test code = KIM) Association of Glomerular Filtration Rate (GFR) and Staging of Kidney Disease* + -+ + ---+| GFR (mL/min/1.73 m2) ?| With Kidney Damage ?| ?Without Kidney Damage+ -------+ ------+ ---------+| ?>90 ?| ?Stage one ?| ? Normal ?+ --+ -+ ----+| ?60-89 ?| ?Stage two ?| ? Decreased GFR ? + -+ + ---+| ?30-59 ?| ?Stage three ?| ? Stage three ? + -+ + ---+| ?15-29 ?| ?Stage four ? | ? Stage four ?+ --+ -+ ----+| ?<15 (or dialysis) ? ?| ?Stage five ? | ? Stage five ?+ --+ -+ ----+ *Each stage assumes the associated GFR level has been in effect for at least three months. ?Stages 1 to 5, with or without kidney disease, indicate chronic kidney disease. Notes: Determination of stages one and two (with eGFR >59mL/min/1.73 m2) requires estimation of kidney damage for at least three months as defined by structural or functional abnormalities of the kidney, manifested by either:Pathological abnormalities or Markers of kidney damage (including abnormalities in the composition of the blood or urine or abnormalities in imaging tests). [facility]landLipase [id number] 23:27:00 Test Item Value Reference Range Interpretation Comments LIPASE (test code = 9714378257) 55 U/L 0-220 Lab Interpretation (test code = Normal 12299-4) [facility] PearlandHepatic Function Panel (ALB, T.PRO, BILI T, BU/BC, ALT, AST, ALK PHOS)2019-06-25 23:27:00 Test Item Value Reference Range Interpretation Comments TOTAL BILI (test code = 5732981078) 1.0 mg/dL 0.1-1.1 BILI UNCON (test code = 1492337520) 0.2 mg/dL 0.1-1.1 BILI CONJ (test code = 8425681276) 0.0 mg/dL 0-0.3 T PROTEIN (test code = 4368431079) 7.8 g/dL 6.3-8.2 ALBUMIN (test code = 9442872181) 4.3 g/dL 3.5-5 ALK PHOS (test code = 3487947765) 622 U/L 34-122 H ALTv (test code = 1742-6) 126 U/L 5-35 H AST(SGOT) (test code = 5308512551) 180 U/L 13-40 H Lab Interpretation (test code = Abnormal 58869-0) [facility]landCBC WITH [id number] 23:23:00 Test Item Value Reference Range Interpretation Comments WBC (test code = See_Comment L [Automated 6690-2) message] The sy stem which generated this result transmitted reference range : 4.30 - 11.10 10*3/?L. The reference range was not used to interpret this result as normal/abnormal . RBC (test code = See_Comment L [Automated 789-8) message] The sy stem which generated this result transmitted reference range : 3.93 - 5.25 10*6/?L. The reference range was not used to interpret this result as normal/abnormal . HGB (test code = 11.0 g/dL 11.6-15 L 718-7) HCT (test code = 34.1 % 35.7-45.2 L 4544-3) MCV (test code = 93.7 fL 80.6-95.5 787-2) MCH (test code = 30.2 pg 25.9-32.8 785-6) MCHC (test code = 32.3 g/dL 31.6-35.1 786-4) RDW-SD (test code = 51.3 fL 39-49.9 H 86942-4) RDW-CV (test code = 14.9 % 12-15.5 788-0) PLT (test code = See_Comment [Automated 777-3) message] The sy stem which generated this result transmitted reference range : 166 - 358 10*3/ ?L. The reference r luca was not used to interpret this result as normal/abnormal . MPV (test code = 9.3 fL 9.5-12.9 L 38376-3) NRBC/100 WBC (test See_Comment [Automat ed code = 6035001957) message] The system which generated this result transmitted reference range : 0.0 - 10.0 /100 WBCs. The refer ence range was not u sed to interpret th is result as normal/abnormal . NRBC x10^3 (test code <0.01 See_Comment [Auto mated = 9721370169) message] The s ystem which generated this result transmitted reference range : 10*3/?L. The reference range was not used to interpret this result as normal/abnormal . GRAN MAT (NEUT) % 67.4 % (test code = 770-8) IMM GRAN % (test code 0.60 % = 9271249267) LYMPH % (test code = 20.6 % 736-9) MONO % (test code = 9.4 % 5905-5) EOS % (test code = 1.7 % 713-8) BASO % (test code = 0.3 % 706-2) GRAN MAT x10^3(ANC) 2.43 10*3/uL 1.88-7.09 (test code = 1281621081) IMM GRAN x10^3 (test <0.03 0-0.06 code = 9630284421) LYMPH x10^3 (test code 0.74 10*3/uL 1.32-3.29 L = 731-0) MONO x10^3 (test code 0.34 10*3/uL 0.33-0.92 = 742-7) EOS x10^3 (test code = 0.06 10*3/uL 0.03-0.39 711-2) BASO x10^3 (test code <0.03 0.01-0.07 = 704-7) Lab Interpretation Abnormal (test code = 91057-6) [facility]landURINALYSIS2020-03-12 22:51:00 Test Item Value Reference Range Interpretation Comments APPEARANCE (test code = Clear Clear 4547253714) COLOR (test code = Yellow Yellow 3490438124) PH (test code = 4.8-8.0 5198924152) SP GRAVITY (test code = 1.003-1.030 8529874433) GLU U QUAL (test code = Negative Negative 9844679042) BLOOD (test code = Negative Negative 8722012247) KETONES (test code = Negative Negative 4091438807) PROTEIN (test code = Negative Negative 2887-8) UROBILIN (test code = 1.0 mg/dL See_Comment [Auto mated message] 0831102265) The system [employer] generated this result transmit gulshan reference range : 0-1.0 mg/dL. Th e reference range was not used to interpret this result as normal/abnormal . BILIRUBIN (test code = Small Negative A 7482665905) NITRITE (test code = Negative Negative 4081469500) LEUK NICHOLE (test code = Negative Negative 5230266776) RBC/HPF (test code = See_Comment [Autom ated message] 9087157523) The system [employer] generated this result transmit gulshan reference range : 0 - 3 HPF. The refe rence range was not u sed to interpret th is result as normal/abnormal . WBC/HPF (test code = See_Comment [Autom ated message] 6429788832) The system [employer] generated this result transmit gulshan reference range : 0 - 5 HPF. The refe rence range was not u sed to interpret th is result as normal/abnormal . BACTERIA (test code = Negative Negative 4141277174) Ictotest (test code = Negative 0066225347) Lab Interpretation (test Abnormal code = 09967-9) [facility]landPregnancy Test, [id number] 22:10:00 Test Item Value Reference Range Interpretation Comments PREG SERUM (test code Negative = 2581950183) KIM (test code = KIM) Less than 10 IU/L. ?If low titer or ectopic is suspected, resubmit specimen in 48-72 hours. [facility] WITH [id number] 22:10:00 Test Item Value Reference Range Interpretation Comments WBC (test code = See_Comment L [Automated 6690-2) message] The sy stem which generated this result transmitted reference range : 4.30 - 11.10 10*3/?L. The reference range was not used to interpret this result as normal/abnormal . RBC (test code = See_Comment L [Automated 789-8) message] The sy stem which generated this result transmitted reference range : 3.93 - 5.25 10*6/?L. The reference range was not used to interpret this result as normal/abnormal . HGB (test code = 10.6 g/dL 11.6-15 L 718-7) HCT (test code = 32.9 % 35.7-45.2 L 4544-3) MCV (test code = 93.2 fL 80.6-95.5 787-2) MCH (test code = 30.0 pg 25.9-32.8 785-6) MCHC (test code = 32.2 g/dL 31.6-35.1 786-4) RDW-SD (test code = 49.4 fL 39-49.9 74705-6) RDW-CV (test code = 14.6 % 12-15.5 788-0) PLT (test code = See_Comment [Automated 777-3) message] The sy stem which generated this result transmitted reference range : 166 - 358 10*3/ ?L. The reference r luca was not used to interpret this result as normal/abnormal . MPV (test code = 9.1 fL 9.5-12.9 L 28746-0) NRBC/100 WBC (test See_Comment [Automat ed code = 6940251795) message] The system which generated this result transmitted reference range : 0.0 - 10.0 /100 WBCs. The refer ence range was not u sed to interpret th is result as normal/abnormal . NRBC x10^3 (test code <0.01 See_Comment [Auto mated = 7148863875) message] The s ystem which generated this result transmitted reference range : 10*3/?L. The reference range was not used to interpret this result as normal/abnormal . GRAN MAT (NEUT) % 48.3 % (test code = 770-8) IMM GRAN % (test code 0.30 % = 2415519195) LYMPH % (test code = 38.9 % 736-9) MONO % (test code = 9.8 % 5905-5) EOS % (test code = 2.4 % 713-8) BASO % (test code = 0.3 % 706-2) GRAN MAT x10^3(ANC) 1.78 10*3/uL 1.88-7.09 L (test code = 4099784252) IMM GRAN x10^3 (test <0.03 0-0.06 code = 4034293926) LYMPH x10^3 (test code 1.43 10*3/uL 1.32-3.29 = 731-0) MONO x10^3 (test code 0.36 10*3/uL 0.33-0.92 = 742-7) EOS x10^3 (test code = 0.09 10*3/uL 0.03-0.39 711-2) BASO x10^3 (test code <0.03 0.01-0.07 = 704-7) Lab Interpretation Abnormal (test code = 50796-2) [facility]landUrinalysis2020-03-06 20:58:00 Test Item Value Reference Range Interpretation Comments APPEARANCE (test code = Hazy Clear A 0797342626) COLOR (test code = Yellow Yellow 5417999169) PH (test code = 4.8-8.0 1864840484) SP GRAVITY (test code = 1.003-1.030 1511262421) GLU U QUAL (test code = Normal Normal 1823167491) BLOOD (test code = Negative Negative 4920802856) KETONES (test code = Negative Negative 7383450846) PROTEIN (test code = Negative Negative 2887-8) UROBILIN (test code = 4.0 mg/dL Normal A 2931761968) BILIRUBIN (test code = Negative Negative 2217770909) NITRITE (test code = Negative Negative 3891094092) LEUK NICHOLE (test code = Negative Negative 5854546536) RBC/HPF (test code = See_Comment [Autom ated message] 6878618061) The system [employer] generated this result transmit gulshan reference range : 0 - 3 HPF. The refe rence range was not u sed to interpret th is result as normal/abnormal . WBC/HPF (test code = See_Comment [Autom ated message] 4332414950) The system [employer] generated this result transmit gulshan reference range : 0 - 5 HPF. The refe rence range was not u sed to interpret th is result as normal/abnormal . BACTERIA (test code = Many Negative A 9319632135) MUCOUS (test code = Slight Negative LPF A 2335723128) SQ EPITH (test code = HPF 6870096691) HYAL CAST (test code = See_Comment [Aut omated message] 2742186135) The system [employer] generated this result transmit gulshan reference range : <=2 LPF. The refere nce range was not u sed to interpret th is result as normal/abnormal . Lab Interpretation (test Abnormal code = 99705-6) [facility] (NA, K, CL, CO2, GLUCOSE, BUN, CREATININE, CA)2019-06-19 20:51:00 Test Item Value Reference Range Interpretation Comments NA (test code = 141 mmol/L 135-145 1462732545) K (test code = 4.5 mmol/L 3.5-5 9159352669) CL (test code = 107 mmol/L 98-108 0904236540) CO2 TOTAL (test code = 25 mmol/L 23-31 6169511450) AGAP (test code = 2-16 0269710281) BUN (test code = 16 mg/dL 7-23 3948292239) GLUCOSE (test code = 89 mg/dL 70-110 5032792357) CREATININE (test code 0.50 mg/dL 0.5-1.04 = 0563987674) CALCIUM (test code = 9.0 mg/dL 8.6-10.6 3542279712) eGFR Calculation mL/min/1.73m2 (Non-) (test code = 9861449246) eGFR Calculation mL/min/1.73m2 () (test code = 0991677003) KIM (test code = KIM) Association of Glomerular Filtration Rate (GFR) and Staging of Kidney Disease* + -+ + ---+| GFR (mL/min/1.73 m2) ?| With Kidney Damage ?| ?Without Kidney Damage+ -------+ ------+ ---------+| ?>90 ?| ?Stage one ?| ? Normal ?+ --+ -+ ----+| ?60-89 ?| ?Stage two ?| ? Decreased GFR ? + -+ + ---+| ?30-59 ?| ?Stage three ?| ? Stage three ? + -+ + ---+| ?15-29 ?| ?Stage four ? | ? Stage four ?+ --+ -+ ----+| ?<15 (or dialysis) ? ?| ?Stage five ? | ? Stage five ?+ --+ -+ ----+ *Each stage assumes the associated GFR level has been in effect for at least three months. ?Stages 1 to 5, with or without kidney disease, indicate chronic kidney disease. Notes: Determination of stages one and two (with eGFR >59mL/min/1.73 m2) requires estimation of kidney damage for at least three months as defined by structural or functional abnormalities of the kidney, manifested by either:Pathological abnormalities or Markers of kidney damage (including abnormalities in the composition of the blood or urine or abnormalities in imaging tests). [facility]land[facility] (ALB, T.PRO, BILI T, BU/BC, ALT, AST, ALK PHOS)2019-06-19 20:51:00 Test Item Value Reference Range Interpretation Comments TOTAL BILI (test code = 0922592752) 0.9 mg/dL 0.1-1.1 BILI UNCON (test code = 9642353346) 0.5 mg/dL 0.1-1.1 BILI CONJ (test code = 1969333951) 0.0 mg/dL 0-0.3 T PROTEIN (test code = 7846848091) 8.0 g/dL 6.3-8.2 ALBUMIN (test code = 3621143839) 4.3 g/dL 3.5-5 ALK PHOS (test code = 4740888955) 613 U/L 34-122 H ALTv (test code = 1742-6) 115 U/L 5-35 H AST(SGOT) (test code = 6489202182) 157 U/L 13-40 H Lab Interpretation (test code = Abnormal 47055-7) [facility]landLipase [id number] 20:51:00 Test Item Value Reference Range Interpretation Comments LIPASE (test code = 0718961517) 89 U/L 0-220 Lab Interpretation (test code = Normal 95985-9) [facility]landCT ABDOMEN PELVIS W [id number] 03:36:50 No acute intra-abdominal abnormality. Hepatosplenomegaly with diffuse fatty infiltration of the liver. Preliminary Report Dictated by Resident: Apolinar Kelley MD., have reviewed this study and agree withthe above report.EXAM: CT ABDOMEN PELVIS W CONTRAST HISTORY: Abd pain, acute, generalized COMPARISON: CT abdomen and pelvis with contrast 02/23/2019, 11/15/2018 DOSE: [id number] mGy-cm TECHNIQUE AND FINDINGS: Contiguous axial imaging from the level of the lungbases through the pubic symphysis was performed after the uncomplicatedadministration of 120 mL of intravenous Omnipaque contrast material. Coronal and sagittal reconstructions were obtained. Auto mA and/or iterative reconstruction were used to reduce radiationdose. FINDINGS: LOWER THORAX: The lungs bases are clear. No cardiomegaly. LIVER: The liver is enlarged with diffuse fatty infiltration of the liver.No focal hepatic lesions. ?Normal contour. GALLBLADDER AND BILIARY TREE: Prior cholecystectomy. Pneumobilia thatextends to the left hepatic duct is similar to prior. SPLEEN: The spleen measures 13.4cm, mild splenomegaly. PANCREAS: No ductal dilation or masses. ADRENAL GLANDS: No adrenal nodules. KIDNEYS: No hydronephrosis, stones, or masses. PERITONEUM AND RETROPERITONEUM: No free air or fluid. LYMPH NODES: No lymphadenopathy. GI TRACT: No dilation or wall thickening. Prior appendectomy. PELVIS/BLADDER: The uterus and ovaries are unremarkable. The bladder ispartially decompressed. VESSELS: Unremarkable. BONES AND SOFT TISSUES: No suspicious lytic or sclerotic bony lesions. MildL4/L5 spondylosis and left L5/S1 facet arthrosis. [facility], Radiant Results Inft User - 05/19/2019 9:38 PM CSTEXAM: CT ABDOMEN PELVIS W CONTRASTHISTORY: Abd pain, acute, generalized COMPARISON: CT abdomen and pelvis withcontrast 02/23/2019, 11/15/2018DOSE: [id number] mGy-cmTECHNIQUE AND FINDINGS: Contiguous axial imaging from the level of the lungbases through the pubic symphysis was performed after the uncomplicatedadministration of 120 mL of intravenous Omnipaque contrast material. Coronal and sagittal reconstructions we re obtained. Auto mA and/or iterative reconstruction were used to reduce radiationdose.FINDINGS:LOWER THORAX: The lungs bases are clear. No cardiomegaly.LIVER: The liver is enlarged with diffuse fatty infiltration of the liver.No focal hepatic lesions. Normal contour.GALLBLADDER AND BILIARY TREE: Prior cholecystectomy. Pneumobilia thatextends to the left hepatic duct is similar to prior.SPLEEN: The spleen measures 13.4 cm, mild splenomegaly.PANCREAS: No ductal dilation or masses.ADRENAL GLANDS: No adrenal nodules.KIDNEYS: No hydronephrosis, stones, or masses.PERITONEUM AND RETROPERITONEUM: No freeair or fluid.LYMPH NODES: No lymphadenopathy.GI TRACT: No dilation or wall thickening. Prior appendectomy.PELVIS/BLADDER: The uterus and ovaries are unremarkable. The bladder ispartially decompressed.VESSELS: Unremarkable.BONES AND SOFT TISSUES: No suspicious lytic or sclerotic bony lesions. MildL4/M2rgszmowotqv and left L5/S1 facet arthrosis. IMPRESSIONNo acute intra-abdominal abnormality.Hepatosplenomegaly with diffuse fatty infiltration of the liver. Preliminary Report Dictated by Resident: Helena Turner, Apolinar Montes MD., have reviewed this study and agree withthe above report.[facility] 2019-05-20 01:38:00 Test Item Value Reference Range Interpretation Comments NA (test code = 141 mmol/L 135-145 7177265687) K (test code = 4.0 mmol/L 3.5-5 5324794396) CL (test code = 105 mmol/L 98-108 9800512955) CO2 TOTAL (test code = 24 mmol/L 23-31 9283181830) AGAP (test code = 2-16 8852153727) BUN (test code = 23 mg/dL 7-23 1158390534) GLUCOSE (test code = 110 mg/dL 70-110 8425367697) CREATININE (test code = 0.68 mg/dL 0.5-1.04 7021768792) TOTAL BILI (test code = 1.0 mg/dL 0.1-1.5 4183667895) CALCIUM (test code = 9.4 mg/dL 8.6-10.6 7226919045) T PROTEIN (test code = 8.1 g/dL 6.3-8.2 2311985798) ALBUMIN (test code = 4.7 g/dL 3.5-5 4855647584) ALK PHOS (test code = 575 U/L 34-122 H 8795469484) ALTv (test code = 112 U/L 5-35 H 1742-6) AST(SGOT) (test code = 112 U/L 13-40 H 6018689221) eGFR Calculation mL/min/1.73m2 (Non-) (test code = 7159342713) eGFR Calculation mL/min/1.73m2 () (test code = 6810109708) KIM (test code = KIM) Association of Glomerular Filtration Rate (GFR) and Staging of Kidney Disease* + --+ --+ ------+| GFR (mL/min/1.73 m2) ?| With Kidney Damage ?| ?Without Kidney Damage+ --------+ --------+ +| ?>90 ?| ?Stage one ?| ? Normal ?+ ---+ ---+ -------+| ?60-89 ?| ?Stage two ?| ? Decreased GFR ? + --+ --+ ------+| ?30-59 ?| ?Stage three ?| ? Stage three ? + --+ --+ ------+| ?15-29 ?| ?Stage four ? | ? Stage four ?+ ---+ ---+ -------+| ?<15 (or dialysis) ? ?| ?Stage five ? | ? Stage five ?+ ---+ ---+ -------+ *Each stage assumes the associated GFR level has been in effect for at least three months. ?Stages 1 to 5, with or without kidney disease, indicate chronic kidney disease. Notes: Determination of stages one and two (with eGFR >59mL/min/1.73 m2) requires estimation of kidney damage for at least three months as defined by structural or functional abnormalities of the kidney, manifested by either:Pathological abnormalities or Markers of kidney damage (including abnormalities in the composition of the blood or urine or abnormalities in imaging tests). Lab Interpretation Abnormal (test code = 24945-1) [facility]landLipase, [id number] 01:38:00 Test Item Value Reference Range Interpretation Comments LIPASE (test code = 0181750611) 65 U/L 0-220 Lab Interpretation (test code = Normal 93767-1) [facility]landUrinalysis2020-02-05 01:30:00 Test Item Value Reference Range Interpretation Comments APPEARANCE (test code = Clear Clear 8927660455) COLOR (test code = Romelia Yellow A 9764204622) PH (test code = 4.8-8.0 4981716262) SP GRAVITY (test code = 1.003-1.030 5159000226) GLU U QUAL (test code = Normal Normal 2433401077) BLOOD (test code = Negative Negative 8071373483) KETONES (test code = Negative Negative 3446249279) PROTEIN (test code = Negative Negative 2887-8) UROBILIN (test code = 2.0 mg/dL Normal A 5405186337) BILIRUBIN (test code = Negative Negative 7689947013) NITRITE (test code = Negative Negative 3670317222) LEUK NICHOLE (test code = Negative Negative 1497181643) RBC/HPF (test code = See_Comment H [Autom ated message] 7269802631) The system [employer] generated this result transmit gulshan reference range : 0 - 3 HPF. The refe rence range was not u sed to interpret th is result as normal/abnormal . WBC/HPF (test code = See_Comment [Autom ated message] 7948411379) The system [employer] generated this result transmit gulshan reference range : 0 - 5 HPF. The refe rence range was not u sed to interpret th is result as normal/abnormal . BACTERIA (test code = Few Negative A 1163262626) MUCOUS (test code = Slight Negative LPF A 8092006682) SQ EPITH (test code = HPF 7880127023) Lab Interpretation (test Abnormal code = 12417-6) [facility] WITH [id number] 01:24:00 Test Item Value Reference Range Interpretation Comments WBC (test code = See_Comment [Automated 6690-2) message] The sy stem which generated this result transmitted reference range : 4.30 - 11.10 10*3/?L. The reference range was not used to interpret this result as normal/abnormal . RBC (test code = See_Comment L [Automated 789-8) message] The sy stem which generated this result transmitted reference range : 3.93 - 5.25 10*6/?L. The reference range was not used to interpret this result as normal/abnormal . HGB (test code = 10.9 g/dL 11.6-15 L 718-7) HCT (test code = 34.8 % 35.7-45.2 L 4544-3) MCV (test code = 93.8 fL 80.6-95.5 787-2) MCH (test code = 29.4 pg 25.9-32.8 785-6) MCHC (test code = 31.3 g/dL 31.6-35.1 L 786-4) RDW-SD (test code = 49.0 fL 39-49.9 23268-6) RDW-CV (test code = 14.3 % 12-15.5 788-0) PLT (test code = See_Comment [Automated 777-3) message] The sy stem which generated this result transmitted reference range : 166 - 358 10*3/ ?L. The reference r luca was not used to interpret this result as normal/abnormal . MPV (test code = 10.2 fL 9.5-12.9 99614-5) NRBC/100 WBC (test See_Comment [Automat ed code = 1655410161) message] The system which generated this result transmitted reference range : 0.0 - 10.0 /100 WBCs. The refer ence range was not u sed to interpret th is result as normal/abnormal . NRBC x10^3 (test code <0.01 See_Comment [Auto mated = 6653407338) message] The s ystem which generated this result transmitted reference range : 10*3/?L. The reference range was not used to interpret this result as normal/abnormal . GRAN MAT (NEUT) % 65.5 % (test code = 770-8) IMM GRAN % (test code 0.50 % = 8936394314) LYMPH % (test code = 24.7 % 736-9) MONO % (test code = 8.6 % 5905-5) EOS % (test code = 0.5 % 713-8) BASO % (test code = 0.2 % 706-2) GRAN MAT x10^3(ANC) 4.37 10*3/uL 1.88-7.09 (test code = 0998379250) IMM GRAN x10^3 (test 0.03 10*3/uL 0-0.06 code = 8084583038) LYMPH x10^3 (test code 1.64 10*3/uL 1.32-3.29 = 731-0) MONO x10^3 (test code 0.57 10*3/uL 0.33-0.92 = 742-7) EOS x10^3 (test code = 0.03 10*3/uL 0.03-0.39 711-2) BASO x10^3 (test code <0.03 0.01-0.07 = 704-7) Lab Interpretation Abnormal (test code = 58058-6) [facility]landCT ANKLE RIGHT WO [id number] 16:39:33 Distal tibial spiral fracture with entrance into the anterolateral tibialplafond without tibial plafond articular incongruity. EXAM: CT ANKLE RIGHT WO CONTRAST HISTORY: Fracture, ankle COMPARISON: 12/01/2018 FINDINGS: Multiplanar CT imaging of the right ankle was performed. A comminuted spiral fracture extends through the distal tibialdiametaphysis with extension into the anterior and lateral aspect of thetibial plafond with no articular step-off deformity. An os trigonum ispresent. Subcutaneous fat stranding is seen along the distal leg and ankle.No tendon entrapment is seen. The ankle mortise is anatomic. [facility], Radiant Results Inft User - 12/05/2018 11:41 AM CDTEXAM:CT ANKLE RIGHT WO CONTRASTHISTORY:Fracture, ankle COMPARISON:12/01/2018FINDINGS: Multiplanar CT imaging of the right ankle was performed.A comminuted spiral fracture extends through the distal tibialdiametaphysis with extension into the anterior and lateral aspect of thetibial plafond with no articular step-off deformity. An os trigonum ispresent. Subcutaneous fat stranding is seen along the distal leg and ankle.No tendon entrapment is seen. The ankle mortise is anatomic.IMPRESSIONDistal tibial spiral fracture with entrance into the anterolateral tibialplafond without tibial plafond articular incongruity. [facility]landXR TIBIA FIBULA 2 VW [id number] 20:06:10 Comminuted mildly displaced distal tibia fracture extending to the tibialplafond. Nondisplaced proximal fibular shaft fracture. EXAM: XR TIBIA FIBULA 2 VW RIGHT, XR FOOT 3+ VW RIGHT HISTORY: 58 years-old Female fall, pain COMPARISON: None. FINDINGS: There is a comminuted mildly displaced fracture i nvolving the distal tibia,with about cortical width posterior displacement of the distal fragment.The fracture lucency extends to the tibial plateau articular surface. A nondisplaced proximal fibular shaft fracture is also identified. Degenerative cystic changes of the first metatarsal head is noted. Mild to moderate osteoarthrosis of the intertarsal and TMT joints isidentified. [facility], Radiant Results Inft User - 12/01/2018 3:08 PM CDTEXAM: XR TIBIA FIBULA 2 VW RIGHT, XR FOOT 3+ VW RIGHTHISTORY: 58 years-old Female fall, pain COMPARISON: None.FINDINGS:There is a comminuted mildly displaced fracture involving the distal tibia,with about cortical width posterior displacement of the distal fragment.The fracture lucency extends to the tibial plateau articular surface.A nondisplaced proximal fibular shaft fracture is also identified.Degenerative cystic changes of the first metatarsal head is noted.Mild to moderate osteoarthrosis of the intertarsal and TMT joints isidentified. IMPRESSIONComminutedmildly displaced distal tibia fracture extending to the tibialplafond.Nondisplaced proximal fibular shaft fracture.[facility]landXR FOOT 3+ VW [id number] 20:06:10 Comminuted mildly displaced distal tibia fracture extending to the tibialplafond. Nondisplaced proximal fibular shaft fracture. EXAM: XR TIBIA FIBULA 2 VW RIGHT, XR FOOT 3+ VW RIGHT HISTORY: 58 years-old Female fall, pain COMPARISON: None. FINDINGS: There is a comminuted mildly displaced fracture involving the distal tibia,with about cortical width posterior displacement of the distal fragment.The fracture lucency extends to the tibial plateau articular surface. A nondisplaced proximal fibular shaft fracture is also identified. Degenerative cystic changes of the first metatarsal head is noted. Mild to moderate osteoarthrosis of the intertarsal and TMT joints isidentified. [facility], Radiant Results Inft User - 12/01/2018 3:08 PM CDTEXAM: XR TIBIA FIBULA 2 VW RIGHT, XR FOOT 3+ VW RIGHTHISTORY: 58 years-old Female fall, pain COMPARISON: None.FINDINGS:There is a comminuted mildly displaced fracture involving the distal tibia,with about cortical width posterior displacement of the distal fragment.The fracture lucency extends to the tibial plateau articular surface.A nondisplaced proximal fibular shaft fracture is also identified.Degenerative cystic changes of the first metatarsal head is noted.Mild to moderate osteoarthrosis of the intertarsal and TMT joints isidentified. IMPRESSIONComminutedmildly displaced distal tibia fracture extending to the tibialplafond.Nondisplaced proximal fibular shaft fracture.[facility]landURINE [id number] 21:51:00 Test Item Value Reference Range Interpretation Comments URINE CULTURE (test 10,000 - 100,000 CFU/mL code = 630-4) mixed aerobic organisms - suggests endogenous microbial contamination [facility] PearlandHELICOBACTER PYLORI AB, [id number] 14:31:00 Test Item Value Reference Range Interpretation Comments Helicobacter pylori IgG Negative Negative Antibody (test code = 4162897730) KIM (test code = KIM) Negative - No H. pylori IgG antibody detected.Positive - Indicates presence of detectable IgG antibodies. Does not distinguish between past or current infection, or between active infection and colonization.Invalid - A second sample should be sent. Lab Interpretation (test Normal code = 39244-4) [facility]landBasic Metabolic Panel (NA, K, CL, CO2, GLUCOSE, BUN, CREATININE, CA)2018-11-16 10:15:00 Test Item Value Reference Range Interpretation Comments NA (test code = 140 mmol/L 135-145 9912612279) K (test code = 3.9 mmol/L 3.5-5 0821241298) CL (test code = 105 mmol/L 98-108 4738483908) CO2 TOTAL (test code = 30 mmol/L 23-31 7595723406) AGAP (test code = 2-16 7221758509) BUN (test code = 16 mg/dL 7-23 7799349996) GLUCOSE (test code = 104 mg/dL 70-110 5943477258) CREATININE (test code 0.52 mg/dL 0.5-1.04 = 6725379231) CALCIUM (test code = 8.6 mg/dL 8.6-10.6 7957664497) eGFR Calculation mL/min/1.73m2 (Non-) (test code = 0077607301) eGFR Calculation mL/min/1.73m2 () (test code = 8864638181) KIM (test code = KIM) Association of Glomerular Filtration Rate (GFR) and Staging of Kidney Disease*+ ---------+ --------+ +| GFR (mL/min/1.73 m2)?| With Kidney Damage?|?Without Kidney Damage+ -------+ ------+ ---------+|?>90?|?Stage one?|? Normal?+ --------+ -------+ +|?60-89?|?St age two?|? Decreased GFR? + -+ + ---+|?30-59?|?Stage three?|? Stage three? + -+ + ---+|?15-29?|?Stage four? |? Stage four?+ ------+ -----+ --------+|?<15 (or dialysis)?|?Stage five? |? Stage five?+ ------+ -----+ --------+*Each stage assumes the associated GFR level has been in effect for at least three months.?Stages 1 to 5, with or without kidney disease, indicate chronic kidney disease.Notes: Determination of stages one and two (with eGFR >59mL/min/1.73 m2) requires estimation of kidney damage for at least three months as defined by structural or functional abnormalities of the kidney, manifested by either:Pathological abnormalities or Markers of kidney damage (including abnormalities in the composition of the blood or urine or abnormalities in imaging tests). [facility] WITH [id number] 09:47:00 Test Item Value Reference Range Interpretation Comments WBC (test code = See_Comment [Automated 3090-2) message] The sy stem which generated this result transmitted reference range : 4.30 - 11.10 10*3/?L. The reference range was not used to interpret this result as normal/abnormal . RBC (test code = See_Comment L [Automated 789-8) message] The sy stem which generated this result transmitted reference range : 3.93 - 5.25 10*6/?L. The reference range was not used to interpret this result as normal/abnormal . HGB (test code = 10.3 g/dL 11.6-15 L 718-7) HCT (test code = 33.4 % 35.7-45.2 L 4544-3) MCV (test code = 96.0 fL 80.6-95.5 H 787-2) MCH (test code = 29.6 pg 25.9-32.8 785-6) MCHC (test code = 30.8 g/dL 31.6-35.1 L 786-4) RDW-SD (test code = 47.8 fL 39-49.9 73884-3) RDW-CV (test code = 13.5 % 12-15.5 788-0) PLT (test code = See_Comment [Automated 777-3) message] The sy stem which generated this result transmitted reference range : 166 - 358 10*3/ ?L. The reference r luca was not used to interpret this result as normal/abnormal . MPV (test code = 9.9 fL 9.5-12.9 90034-0) NRBC/100 WBC (test See_Comment [Automat ed code = 2230637347) message] The system which generated this result transmitted reference range : 0.0 - 10.0 /100 WBCs. The refer ence range was not u sed to interpret th is result as normal/abnormal . NRBC x10^3 (test code <0.01 See_Comment [Auto mated = 0849617805) message] The s ystem which generated this result transmitted reference range : 10*3/?L. The reference range was not used to interpret this result as normal/abnormal . GRAN MAT (NEUT) % 56.8 % (test code = 770-8) IMM GRAN % (test code 0.40 % = 5747820345) LYMPH % (test code = 27.2 % 736-9) MONO % (test code = 9.1 % 5905-5) EOS % (test code = 5.8 % 713-8) BASO % (test code = 0.7 % 706-2) GRAN MAT x10^3(ANC) 2.55 10*3/uL 1.88-7.09 (test code = 4842599816) IMM GRAN x10^3 (test <0.03 0-0.06 code = 0106136264) LYMPH x10^3 (test code 1.22 10*3/uL 1.32-3.29 L = 731-0) MONO x10^3 (test code 0.41 10*3/uL 0.33-0.92 = 742-7) EOS x10^3 (test code = 0.26 10*3/uL 0.03-0.39 711-2) BASO x10^3 (test code 0.03 10*3/uL 0.01-0.07 = 704-7) Lab Interpretation Abnormal (test code = 84770-1) [facility]landGLYCOSYLATED HEMOGLOBIN (A1C)2018-11-16 04:33:00 Test Item Value Reference Interpretation Comments Range HGB A1C (test code = See_Comment [Autom ated 4548-4) message] The system which generated this result transmitted reference range : 4.0 - 6.0 % NGSP. The reference range was not used to interpret this result as normal/abnormal . KIM (test code = %A1C (NGSP) KIM) Interpretation (ADA)4.8-5.6? Normal or (Non-Diabetic Range)5.7-6.4? Increased Risk (Pre-Diabetic)>6.5?D iabetes Indicated Lab Interpretation Normal (test code = 25581-9) [facility] PearlandHCV [id number] 02:23:00 Test Item Value Reference Range Interpretation Comments HCV Semi-Quantitative (test code = 03502-5) [facility] PearlandHEPATITIS B SURFACE [id number] 02:23:00 Test Item Value Reference Range Interpretation Comments HBsAB (test code = Negative 2990302211) HBsAb mIU/mL Semi-Quantitative (test code = 3343729831) KIM (test code = Interpretation:?Hepatitis KIM) B Surface Antibody? ? Negative - Patient is considered to be not immune to infection with HBV.? Positive - Anti-HBs detected at greater than or equal to 12 mIU/mL.?Patient is considered to be immune to infection with HBV.? [facility] A VIRUS ANTIBODY [id number] 02:11:00 Test Item Value Reference Range Interpretation Comments HAVM Semi-Quantitative (test code = 71206-5) KIM (test code = HAVAb IgM Interpretative KIM) Information:Reactive greater than or equal to 1.2Biotin has been reported to cause a negative bias, interpret results relative to patient's use of biotin. [facility] B CORE ANTIBODY [id number] 02:11:00 Test Item Value Reference Range Interpretation Comments HBCM Semi-Quantitative (test code = 78465-6) KIM (test code = Biotin has been reported KIM) to cause a negative bias, interpret results relative to patient's use of biotin. [facility] PearlandABORH [id number] 00:49:22 Test Item Value Reference Range Interpretation Comments ABO & RH (test code O Positive Performe d at [facility] = 20) [facility] Blood Bank[facility] [address]Fygl Free: [phone] A No. [id number] [facility] PearlandUrinalysis2019-08-04 00:29:00 Test Item Value Reference Range Interpretation Comments APPEARANCE (test code = Clear Clear 4562131022) COLOR (test code = Yellow Yellow 7054612746) PH (test code = 4.8-8.0 5395572781) SP GRAVITY (test code = 1.003-1.030 H 6476270738) GLU U QUAL (test code = Normal Normal 6455252301) BLOOD (test code = Negative Negative 3047198731) KETONES (test code = Negative Negative 4188973102) PROTEIN (test code = Negative Negative 2887-8) UROBILIN (test code = 4.0 mg/dL Normal A 3736063601) BILIRUBIN (test code = Negative Negative 6919572813) NITRITE (test code = Negative Negative 0314717126) LEUK NICHOLE (test code = Negative Negative 0619053377) RBC/HPF (test code = See_Comment H [Autom ated message] 6883530659) The system [employer] generated this result transmit gulshan reference range : 0 - 3 HPF. The refe rence range was not u sed to interpret th is result as normal/abnormal . WBC/HPF (test code = See_Comment [Autom ated message] 0133971002) The system [employer] generated this result transmit gulshan reference range : 0 - 5 HPF. The refe rence range was not u sed to interpret th is result as normal/abnormal . BACTERIA (test code = Negative Negative 6071191161) SQ EPITH (test code = See_Comment [Auto mated message] 3154724622) The system [employer] generated this result transmit gulshan reference range : <=2 HPF. The refere nce range was not u sed to interpret th is result as normal/abnormal . Lab Interpretation (test Abnormal code = 79960-1) [facility] PearlandType and Screen - ONCE [id number] 00:15:31 Test Item Value Reference Range Interpretation Comments ABO & RH (test code O POSITIVE Performe d at [facility] = 20) [facility] Blood [facility]3 [address] [facility] [address]Pcsm Free: [phone] A No. [id number] IAT (test code = Negative Performed a t [facility] 1185) [facility] Blood [facility]3 [address] [facility] [address]Tqut Free: [phone] A No. [id number] [facility] PearlandTROPONIN [id number] 00:04:00 Test Item Value Reference Range Interpretation Comments TROPONIN I (test 0.002 ng/mL See_Comment [Automated code = 9569236433) message] The system which generated this result transmitted reference range : <=0.034. The reference range was not used to interpret this result as normal/abnormal . KIM (test code = Equal or Less than KIM) 0.034 ng/ml---Normal?Not e: Cardiac troponin begins to rise 3-4 hours after the onset of ischemia. Repeat in 4-6 hours if the sample was drawn within 3-4 hours of the onset of the symptom and found normal. Between 0.035 and 0.120 ng/mL--- Borderline. Questionable myocardial injury or necrosis?Note: Serial measurement may be necessary to confirm or exclude the diagnosis of myocardial injury or necrosis; Clinical correlation (symptoms, EKGs, imaging studies, and others) required; Repeat in 4-6 hours if clinically indicated.? Equal or Higher than 0.121 ng/mL---Abnormal. Myocardial Injury or Necrosis Likely? Biotin has been reported to cause a negative bias, interpret results relative to patient's use of biotin.? ? Lab Interpretation Normal (test code = 54773-4) [facility] PearlandLIPID PANEL (78465)(TOTAL CHOLESTEROL, TRIGLYCERIDES, HDL)2018-11-15 23:58:00 Test Item Value Reference Range Interpretation Comments CHOL (test code = 289 mg/dL 120-200 H 8000006109) HDL (test code = 97 mg/dL >50 3572371932) HDLC RATIO (test code = See_Comment [Au tomated message] 3083853390) The system [employer] generated this result transmit gulshan reference range : <=4.5. The refe rence range was not u sed to interpret th is result as normal/abnormal . TRIG (test code = 52 mg/dL 30-170 2056462028) LDL CHOL (test code = 182 mg/dL See_Comment H [Auto mated message] 92819-8) The system [employer] generated this result transmit gulshan reference range : <=160. The refe rence range was not u sed to interpret th is result as normal/abnormal . VLDL (test code = 10 mg/dL 5-60 6600478567) Lab Interpretation (test Abnormal code = 39844-6) [facility]landCT ABDOMEN PELVIS W [id number] 17:09:23 1.?No acute intra-abdominal or pelvic abnormality. 2.?Splenomegaly, unchanged. EXAM: CT ABDOMEN/PELVIS WITH CONTRAST HISTORY: Abd infection (incl peritonitis) COMPARISON: CT abdomen/pelvis 09/09/2018 DOSE: 591 mGy-cm TECHNIQUE AND FINDINGS: Contiguous axial imaging from the level of the lungbases through the pubic symphysis was performed after the uncomplicatedadministration of 120 cc of intravenous Omnipaque contrast. Coronal andsagittal reconstructions were obtained. FINDINGS: LOWER THORAX: Subpleural groundglass opacities along the dependent andmedial aspects of the lung bases likely represent atelectatic changes.. Nocardiomegaly. LIVER: No focal hepatic lesions. Normal contour. GALLBLADDER: Changes of cholecystectomy. No biliary ductal dilation. Asmall amount of pneumobilia is again seen. SPLEEN: Splenomegaly measuring up to 14.4 cm, unchanged. PANCREAS: No ductal dilation or masses. ADRENALGLANDS: No adrenal nodules. KIDNEYS: No hydronephrosis, stones, or masses. Subcentimeter hypodensitiesin the upper pole the right kidney are too small to fully characterize, butstatistically likely represents cysts. PERITONEUM AND RETROPERITONEUM: No free air or fluid. LYMPH NODES: No lymphadenopathy.GI TRACT: No dilation or wall thickening. Changes of appendectomy arenoted. PELVIS/BLADDER: Unremarkable. VESSELS: Unremarkable. BONES AND SOFT TISSUES: No suspicious lytic or sclerotic bony lesions. Mildspondyloarthropathy is seen along the lower lumbar spine. [facility], Radiant Results Inft User - 11/15/2018 12:09 PM CDTEXAM: CT ABDOMEN/PELVIS WITH CONTRASTHISTORY: Abd infection (incl peritonitis)COMPARISON: CT abdomen/pelvis 09/09/2018DOSE: 591 mGy-cmTECHNIQUE AND FINDINGS: Contiguous axial imaging from the level of the lungbases through the pubic symphysis was performed after the uncomplicatedadministration of 120 cc of intravenous Omnipaque contrast. Coronal andsagittal reconstructions were obtained.FINDINGS:LOWER THORAX: Subpleural groundglass opacities along the dependent andmedial aspects of the lung bases likely represent atelectatic changes.. Nocardiomegaly.LIVER: No focal hepatic lesions. Normal contour.GALLBLADDER: Changes of cholecystectomy. No biliary ductal dilation. Asmall amount of pneumobilia is again seen.SPLEEN: Splenomegaly measuring up to 14.4 cm, unchanged.PANCREAS: No ductal dilation or masses.ADRENAL GLANDS: No adrenal nodules.KIDNEYS: No hydronephrosis, stones, or masses. Subcentimeter hypodensitiesin the upper pole the right kidney are too small to fully characterize, butstatistically likely represents cysts.PERITONEUM AND RETROPERITONEUM: No free air or fluid.LYMPH NODES: No lymphadenopathy.GI TRACT: No dilation or wall thickening. Changes of appendectomy arenoted.PELVIS/BLADDER: Unremarkable.VESSELS: Unremarkable.BONES AND SOFT TISSUES: No suspicious lytic or sclerotic bony lesions. Mildspondyloarthropathy is seen along the lower lumbar spine.IMPRESSION1. No acuteintra-abdominal or pelvic abnormality.2. Splenomegaly, unchanged.[facility]land[facility]ETAMINOPHEN 2018-11-15 16:52:00 Test Item Value Reference Range Interpretation Comments ACETAMINOP (test code = <10.0 10-30 L 0873307010) KIM (test code = KIM) Toxic: Greater than 200 ug/mL @ 4 hour post ingestion or greater than 50 ug/mL @ 12 hour post ingestion Lab Interpretation (test Abnormal code = 90848-0) [facility]landXR CHEST 1 [id number] 15:23:59 1.?No acute cardiopulmonary abnormality.* * * * * * * * ORIGINAL REPORT * * * * * * * *EXAM: XR CHEST 1 VW COMPARISON: 03/01/2016 HISTORY: chest pain FINDINGS: Lines/Tubes: None. Lungs: A small calcified granuloma projecting over the right upper lung isunchanged. Mild bibasilar atelectasis is seen. No focal consolidation isidentified. No pleural effusion or pneumothorax is identified. Heart/Mediasti num: The cardiomediastinal silhouette is normal fortechnique. Bones: No acute osseous abnormality isseen. [facility], Radiant Results Inft User - 11/15/2018 10:24 AM CDT* * * * * * * * ORIGINAL REPORT * * * * * *EXAM: XR CHEST 1 VWCOMPARISON: 03/01/2016HISTORY: chest pain FINDINGS:Lines/Tubes: None.Lungs: A small calcified granuloma projecting over the right upper lung isunchanged. Mild bibasilar atelectasis is seen. No focal consolidation isidentified. No pleural effusion or pneumothorax is identified.Heart/Mediastinum: The cardiomediastinal silhouette is normal fortechnique.Bones: No acute osseousabnormality is seen.IMPRESSION1. No acute cardiopulmonary abnormality.[facility]landTroponin [id number] 15:19:00 Test Item Value Reference Range Interpretation Comments TROPONIN I (test 0.014 ng/mL See_Comment [Automated code = 5741492141) message] The system which generated this result transmitted reference range : <=0.034. The reference range was not used to interpret this result as normal/abnormal . KIM (test code = Equal or Less than KIM) 0.034 ng/ml---Normal?Not e: Cardiac troponin begins to rise 3-4 hours after the onset of ischemia. Repeat in 4-6 hours if the sample was drawn within 3-4 hours of the onset of the symptom and found normal. Between 0.035 and 0.120 ng/mL--- Borderline. Questionable myocardial injury or necrosis?Note: Serial measurement may be necessary to confirm or exclude the diagnosis of myocardial injury or necrosis; Clinical correlation (symptoms, EKGs, imaging studies, and others) required; Repeat in 4-6 hours if clinically indicated.? Equal or Higher than 0.121 ng/mL---Abnormal. Myocardial Injury or Necrosis Likely? Biotin has been reported to cause a negative bias, interpret results relative to patient's use of biotin.? ? Lab Interpretation Normal (test code = 91456-9) [facility]landN-TERMINAL ZCZ-FOB3339-20-03 15:16:00 Test Item Value Reference Range Interpretation Comments NT-proBNP (test code 29 pg/mL See_Comment [Autom ated = 2752592131) message] The system which generated this result transmitted reference range : <=125. The reference range was not used to interpret this result as normal/abnormal . KIM (test code = KIM) Biotin has been reported to cause a negative bias, interpret results relative to patient's use of biotin. Lab Interpretation Normal (test code = 91332-4) [facility]landBasi Metabolic Panel (NA, K, CL, CO2, GLUCOSE, BUN, CREATININE, CA)2018-11-15 15:07:00 Test Item Value Reference Range Interpretation Comments NA (test code = 142 mmol/L 135-145 8773818987) K (test code = 5.1 mmol/L 3.5-5 H 5909148156) CL (test code = 107 mmol/L 98-108 9205899568) CO2 TOTAL (test code = 26 mmol/L 23-31 3549047590) AGAP (test code = 2-16 0332177323) BUN (test code = 22 mg/dL 7-23 1798257821) GLUCOSE (test code = 93 mg/dL 70-110 1921614982) CREATININE (test code = 0.47 mg/dL 0.5-1.04 L 4480808022) CALCIUM (test code = 8.9 mg/dL 8.6-10.6 3523727035) eGFR Calculation mL/min/1.73m2 (Non-) (test code = 0727022020) eGFR Calculation mL/min/1.73m2 () (test code = 0235515884) KIM (test code = KIM) Association of Glomerular Filtration Rate (GFR) and Staging of Kidney Disease*+ + + +| GFR (mL/min/1.73 m2)?| With Kidney Damage?|?Without Kidney Damage+ --------+ --------+ +|?>90?|?S tage one?|? Normal?+ ---------+ ---------+ +|?60-89? |?Stage two?|? Decreased GFR? + --+ --+ ------+|?30-59?|?Stage three?|? Stage three? + --+ --+ ------+|?15-29?|?Stage four? |? Stage four?+ -------+ -------+ +|?<15 (or dialysis)?|?Stage five? |? Stage five?+ -------+ -------+ +*Each stage assumes the associated GFR level has been in effect for at least three months.?Stages 1 to 5, with or without kidney disease, indicate chronic kidney disease.Notes: Determination of stages one and two (with eGFR >59mL/min/1.73 m2) requires estimation of kidney damage for at least three months as defined by structural or functional abnormalities of the kidney, manifested by either:Pathological abnormalities or Markers of kidney damage (including abnormalities in the composition of the blood or urine or abnormalities in imaging tests). Lab Interpretation Abnormal (test code = 90801-8) [facility]landHepatic Function Panel (ALB, T.PRO, BILI T, BU/BC, ALT, AST, ALK PHOS)2018-11-15 15:07:00 Test Item Value Reference Range Interpretation Comments TOTAL BILI (test code = 7073244761) 1.1 mg/dL 0.1-1.1 BILI UNCON (test code = 9419915040) 0.4 mg/dL 0.1-1.1 BILI CONJ (test code = 7102170522) 0.0 mg/dL 0-0.3 T PROTEIN (test code = 2974692775) 8.2 g/dL 6.3-8.2 ALBUMIN (test code = 0453979943) 4.2 g/dL 3.5-5 ALK PHOS (test code = 0738814194) 723 U/L 34-122 H ALT(SGPT) (test code = 2177252790) 196 U/L 9-51 H AST(SGOT) (test code = 4644678048) 194 U/L 13-40 H Lab Interpretation (test code = Abnormal 89359-5) [facility] PearlandLipase Dwquo6785-48-16 15:07:00 Test Item Value Reference Range Interpretation Comments LIPASE (test code = 6552448122) 185 U/L 0-220 Lab Interpretation (test code = Normal 12557-9) [facility] PearlandaPTT2019-08-03 14:58:00 Test Item Value Reference Range Interpretation Comments APTT Patient (test See_Comment [Automat ed code = 3173-2) message] The system which generated this result transmitted reference range : 23 - 38 Seconds . The reference range was not used to interpr et this result as normal/abnormal . KIM (test code = KIM) The [facility] patient population mean normal value for aPTT is 30 seconds. Lab Interpretation Normal (test code = 96989-1) [facility] PearlandProthrombin Time (PT) / CRB4246-28-04 14:55:00 Test Item Value Reference Range Interpretation Comments PROTIME PATIENT (test See_Comment [Auto mated message] code = 5964-2) The system wh ich generated this result transmitted ref erence range: 12.0 - 1 4.7 Seconds. The re ference range was not u sed to interpret this result as normal/abnor mal. INR (test code = 6301-6) Nor mal INR <1.1; Warfarin Therap eutic range 2.0 to 3. 0 or 2.5 to 3.5, dep ending upon the indica tions. Lab Interpretation (test Normal code = 53693-9) [facility] PearlandCBC WITH QAMAPPHTYOHB9665-35-20 14:47:00 Test Item Value Reference Range Interpretation Comments WBC (test code = See_Comment [Automated 2190-2) message] The sy stem which generated this result transmitted reference range : 4.30 - 11.10 10*3/?L. The reference range was not used to interpret this result as normal/abnormal . RBC (test code = See_Comment L [Automated 079-8) message] The sy stem which generated this result transmitted reference range : 3.93 - 5.25 10*6/?L. The reference range was not used to interpret this result as normal/abnormal . HGB (test code = 11.2 g/dL 11.6-15 L 718-7) HCT (test code = 35.4 % 35.7-45.2 L 4544-3) MCV (test code = 95.2 fL 80.6-95.5 787-2) MCH (test code = 30.1 pg 25.9-32.8 785-6) MCHC (test code = 31.6 g/dL 31.6-35.1 786-4) RDW-SD (test code = 47.1 fL 39-49.9 03270-8) RDW-CV (test code = 13.4 % 12-15.5 788-0) PLT (test code = See_Comment [Automated 777-3) message] The sy stem which generated this result transmitted reference range : 166 - 358 10*3/ ?L. The reference r luca was not used to interpret this result as normal/abnormal . MPV (test code = 10.0 fL 9.5-12.9 09820-1) NRBC/100 WBC (test See_Comment [Automat ed code = 0492792262) message] The system which generated this result transmitted reference range : 0.0 - 10.0 /100 WBCs. The refer ence range was not u sed to interpret th is result as normal/abnormal . NRBC x10^3 (test code <0.01 See_Comment [Auto mated = 3493530746) message] The s ystem which generated this result transmitted reference range : 10*3/?L. The reference range was not used to interpret this result as normal/abnormal . GRAN MAT (NEUT) % 54.5 % (test code = 770-8) IMM GRAN % (test code 0.40 % = 6488522271) LYMPH % (test code = 26.5 % 736-9) MONO % (test code = 10.5 % 5905-5) EOS % (test code = 7.4 % 713-8) BASO % (test code = 0.7 % 706-2) GRAN MAT x10^3(ANC) 2.43 10*3/uL 1.88-7.09 (test code = 1269959218) IMM GRAN x10^3 (test <0.03 0-0.06 code = 5898276859) LYMPH x10^3 (test code 1.18 10*3/uL 1.32-3.29 L = 731-0) MONO x10^3 (test code 0.47 10*3/uL 0.33-0.92 = 742-7) EOS x10^3 (test code = 0.33 10*3/uL 0.03-0.39 711-2) BASO x10^3 (test code 0.03 10*3/uL 0.01-0.07 = 704-7) Lab Interpretation Abnormal (test code = 58070-5) [facility], Hamxo9731-61-17 15:57:00 Test Item Value Reference Range Interpretation Comments Culture, Urine (test NF code = URC) Culture, Urine (test 10 NSF code = URC1) * This is an EDIT ED result. * A prior r esult that was reported as final has been changed. Hlmwlohjsg0428-74-71 22:53:00 Test Item Value Reference Range Interpretation Comments Urinalysis (test ROMELIA Yellow code = UACLR) Urinalysis (test CLOUDY [...] = UACAST) CAST LPF Urine Source: Urine Xvvqxa42833 SURGICAL PATHOLOGY, LEVEL T5550-28-36 14:31:00 [place] [address] Laboratory Printed: 07/09/[address] [place] [address] DAEMPathology Page: 1 Patient: ZEKE ALEMAN Birthdate: 1960 Age/Sex: 56/F Spec#: [id number]: HERMES SALAZAR Specimen Date: 07/08/17 [...] and few neutrophils. Pathologist:Kelvin Conway Entered by:07/09/171429 MAY PROCEDURES: 82790,46863/4 Patient: ZEKE ALEMAN Re07/03/17Loc: T4-A MR#: [id number] CONTINUED ON NEXT PAGE Dis: 07/09/17ta: DIS IN - [address] [address] Laboratory Printed: 07/09/17 [facility] DAEMPathology Page: 2 Patient: ZEKE ALEMAN [id number] (Continued) GROSS DESCRIPTION A. LIVER BIOPSY LEFT [...] by: DANII SHAHID Entered by:07/08/17 - 1316 [facility]YGP MICROSCOPIC DESCRIPTION A microscopic examination was performed to arrive at the diagnostic conclusion reported. Signed ___ ____(Electronically Signed) Kelvin 07/09/17 Patient: ZEKE ALEMAN Re07/03/17Loc: T4-A MR#: [id number] END OF REPORT Dis: 07/09/17ta: DIS CUSxtjnkcga7380-29-50 05:13:00 Test Item Value Reference Range Interpretation [...] U/L 8-55 H = ALT) Reference Lab Ljrzyon2052-45-67 04:14:00 Test Item Value Reference Range Interpretation Comments Reference Lab 10 U/mL 0-35 Laurent ECLIA Testing (test code methodolo gyPerformed at: HD = CA199) - [facility] [address] [facility] HospitalBill n, [place] [id number] Di aimee: Chico Suero MD, Phone : [phone] Reference Lab Gqzpmql0098-48-45 16:14:00 Test Item Value Reference Range Interpretation Comments Reference Lab Testing 128.5 Units 0.0-20.0 H (test code = MARLON) Negative 0.0 - 20.0 Equivocal 20.1 - 24.9 Positive >24.9Mitochondr ial (M2) Antibodies are found in 90-96% ofpatients with primary biliary cirrhosis.Perfo rmed at: [facility] [address] [id number] Director: Pj Rider MD, [facility] ne: [phone] Reference Lab Hxiztpn1728-33-28 16:14:00 Test Item Value Reference Range Interpretation [...] testing of p ositive sera with both GA-3 and MPO-ANCA enzyme immunoassays. A s many as 5% serumsamples are positive only b y EIA. Ref. AM J Clin Bdxaog2666;111: 507-513. Reference Lab <1:20 titer Neg:<1:20 The atypical p ANCA pattern Testing (test has been obser chelita in code = ATANCA) asignificant percentage of patients with u lcerative colitis,primary sclerosing cholangitis and autoimmune hepatitis.Perfo rmed at: [facility] - [facility] [address] [id number] Di aimee: Chetser ramírez MD, Phone: [phone] Jgwkigtqv2320-88-78 05:12:00 Test Item Value Reference Range Interpretation [...] 8-55 H code = ALT) Reference Lab Zpzzrsn8530-57-41 22:07:00 Test Item Value Reference Range Interpretation Comments Reference Lab Testing 785 IU/L 39-117 H (test code = ISOALKT) Reference Lab Testing 25 % 14-68 (test code = ISOALKBT) Reference Lab Testing 74 % 18-85 (test code = ISOALKLT) Reference Lab Testing 1 % 0-18 Perfor med at: HD - (test code = ISOALKIT) [facility] [address] [place], [place] [id number] b Director: Chico Suero MD, Phone: [phone] [facility] at: BN - [facility] [address] [id number] Di aimee: Chester ramírez MD, Phone: [phone] Ttitkzumc4243-15-63 11:48:00 Test Item Value Reference Range Interpretation [...] code = ALT) 92 U/L 8-55 H Mgftfbrvl6126-93-56 06:08:00 Test Item Value Reference Range Interpretation [...] 8.5 mg/dL 7.8-10.44 N code = CA) Nyuzcgqoi1785-00-08 06:06:00 Test Item Value Reference Range Interpretation [...] code = ALT) 129 U/L 8-55 H Hnpxhranqs8088-12-93 05:57:00 Test Item Value Reference Range Interpretation [...] code = BASO#) 0.0 thou/uL 0.0-0.2 N Vkucimyjuca4270-45-42 05:55:00 Test Item Value Reference Range Interpretation [...] - 4. 0 CRITICAL: > 4.0 Anticoagulant? WMTELgwnfsgad1793-13-31 05:36:00 Test Item Value Reference Range Interpretation [...] 8.9 mg/dL 7.8-10.44 N code = CA) Alcctrfwm3471-09-25 05:33:00 Test Item Value Reference Range Interpretation [...] code = ALT) 160 U/L 8-55 H Enmkyothgz7589-42-39 05:28:00 Test Item Value Reference Range Interpretation [...] 0.1 thou/uL 0.0-0.2 N Chemistry - Elizabeth Sskhzes4166-65-88 13:02:00 Test Item Value Reference Range Interpretation [...] hod: Enzyme Linked Fluorescent Immunoassay (Elizabeth)Reference s: [employer] Elizabeth Package Inserts - Directions Vasile maria, June,August 02, Sync.ME ic. Armjaygag0880-31-70 05:00:00 Test Item Value Reference Range Interpretation [...] code = ALT) 144 U/L 8-55 H Xghsbqjqh5195-80-71 04:50:00 Test Item Value Reference Range Interpretation [...] 8.4 mg/dL 7.8-10.44 N code = CA) Faehyinmwe9309-85-56 04:39:00 Test Item Value Reference Range Interpretation [...] code = BASO#) 0.0 thou/uL 0.0-0.2 N Boattgfbm3575-04-70 17:07:00 Test Item Value Reference Range Interpretation Comments Chemistry (test code = IGG) 1032.00 mg/dL 552-1631 N Loegcuzzd4718-84-41 17:07:00 Test Item Value Reference Range Interpretation Comments Chemistry (test code = IGM) 215.00 mg/dL 33-293 N Uszgithgdj0398-72-58 00:50:00 Test Item Value Reference Range Interpretation [...] UABLD) Urine Source: Urine Clean CatchChemistry - Qeearpgm4398-22-54 00:25:00 Test Item Value Reference Range Interpretation Comments Chemistry - Specials (test Non-Reactive NonReactive code = THEPAIGM) Chemistry - Specials (test Non-Reactive S/CO NonReactive code = THBSAG) Chemistry - Specials (test Non-Reactive NonReactive code = INTHBCM) Chemistry - Specials (test Non-Reactive NonReactive code = INTHEPC) Jjuotmudh4561-95-75 22:12:00 Test Item Value Reference Range Interpretation [...] code 196 U/L 8-55 H = ALT) Oertailgk0600-87-15 22:12:00 Test Item Value Reference Range Interpretation Comments Chemistry (test code = LIP) 22 U/L 8-78 N Fhknbxrluc6480-28-47 21:50:00 Test Item Value Reference Range Interpretation [...] code = BASO#) 0.1 thou/uL 0.0-0.2 N Uimixzdbx5813-91-11 22:49:00 Test Item Value Reference Range Interpretation [...] 78 U/L 8-55 H code = ALT) Olapqqhhs2150-66-24 22:49:00 Test Item Value Reference Range Interpretation Comments Chemistry (test code = LIP) 12 U/L 8-78 N Vetqwgwxky4842-18-27 22:24:00 Test Item Value Reference Range Interpretation [...] code = BASO#) 0.0 thou/uL 0.0-0.2 N Xeuuaytxgp7333-64-56 22:00:00 Test Item Value Reference Range Interpretation [...] UABLD) Negative Negative Urine Source: Urine Clean TmtuiQtqwqior6828-99-42 09:28:00 Test Item Value Reference Range Interpretation Comments Accuchek (test code = ACU) 99 mg/dL 70-110 N Vvmxxlpzpk1566-82-97 09:14:00 Test Item Value Reference Range Interpretation [...] UABLD) Negative Negative Urine Source: Urine Clean LywlzGitbpfhweq4886-48-31 21:28:00 Test Item Value Reference Range Interpretation [...] UABLD) Negative Negative Urine Source: Urine Clean WcwjfGjejsdspa2238-33-37 21:09:00 Test Item Value Reference Range Interpretation [...] 95 U/L 8-55 H code = ALT) Iacfpetms7722-48-80 21:09:00 Test Item Value Reference Range Interpretation Comments Chemistry (test code = LIP) 39 U/L 8-78 N Okbeemzeif4612-34-17 20:49:00 Test Item Value Reference Range Interpretation [...] code = BASO#) 0.0 thou/uL 0.0-0.2 N Jrevsfdrzk7052-01-47 21:34:00 Test Item Value Reference Range Interpretation [...] desired. Presu mptive positive urines are held [facility]. Urine Source: Urine Clean SnlzwVeiptfoufu1922-09-73 19:17:00 Test Item Value Reference Range Interpretation [...] = UABLD) Negative Negative Urine Source: Urine SqeyoeJbensfwgg3517-31-98 18:48:00 Test Item Value Reference Range Interpretation [...] code 84 U/L 8-55 H = ALT) Dxkuvnzjq2911-89-48 18:48:00 Test Item Value Reference Range Interpretation Comments Chemistry (test code = JORGE) 53.0 U/L 25-125 N Qokbvqsic7556-45-18 18:48:00 Test Item Value Reference Range Interpretation Comments Chemistry (test code = LIP) 10 U/L 8-78 N Zuxnkvqzvd8018-96-80 18:19:00 Test Item Value Reference Range Interpretation [...] = BASO#) 0.1 thou/uL 0.0-0.2 N Culture, Abqzd5324-03-14 10:22:00 Test Item Value Reference Range Interpretation Comments Culture, Urine (test code = URC) NF N Culture, Urine (test code = URC1) 10 MSF N Rbxwpbwcb0662-77-41 17:38:00 Test Item Value Reference Range Interpretation Comments Chemistry (test code = PHOS) 2.9 mg/dL 2.3-4.7 N Nrxqqvdnr8739-13-54 17:04:00 Test Item Value Reference Range Interpretation [...] H = ALT) Chemistry - BNP, HgbA1c, LBIn5704-57-16 17:04:00 Test Item Value Reference Range Interpretation Comments Chemistry - BNP, 4.9 % 4.0-6.0 N Therapeutic goals for glycemic HgbA1c, PTHi (test control ( ADA)Adults:- Goal of code = BCRZ7YX) therapy: Les s than 7.0% HbA1c- Action suggeste d: Greater than 8.0% HoY3iVstds tric patients:- Toddlers and pr eschoolers: Less than 8.5% (but Greater than 7.5%)- Katelynn ool age (6-12 years): Less th an 8%- Adolescents and young adults (13-19 years): Less than 7.5%Diagnosing diabetes (ADA)- HbA1c: Greater than or equal to 6.5% Values of 5.7 - 6.4% indicate HIGH risk for developing DiabetesInterna presbyterian/[facility] Expert Committee Repor t on the Role of the R2WWprji in the Diagnosis of Di abetes. Diabetes Care 2009July;32(7): 1327-1334ADA, Diagnosis cla ssification of diabetes carlitos us.Diabetes Care 2010; 33 S uppl 1:S62 Aucrdzxhv3834-82-99 16:59:00 Test Item Value Reference Range Interpretation Comments Chemistry (test code = CRP) 1.16 mg/dL = or < 0.5 H What test does the doctor want? C-REACTIVE PROTEIN (CRP)Tylmdwbayo7038-40-05 16:53:00 Test Item Value Reference Range Interpretation [...] HPF None Seen Urine Source: Urine Clean DynttResvcheysn9075-74-79 16:46:00 Test Item Value Reference Range Interpretation [...] code = BASO#) 0.1 thou/uL 0.0-0.2 N Fseoeiqmhj9477-62-70 21:59:00 Test Item Value Reference Range Interpretation [...] Urine Clean CatchSepsis - Lactic Acid >2 Xizt6420-37-46 23:59:00 Test Item Value Reference Range Interpretation Comments Sepsis - Lactic Additional Lactate testin g will be Acid >2 Rflx performed in 3 hrs (test code = according to kenny RDIYG4R) SepsisProtocol. Kcmrrurhg1587-19-36 21:12:00 Test Item Value Reference Range Interpretation Comments Chemistry (test code = JORGE) 59.0 U/L 25-125 N Iuhnwdcjc9512-70-36 20:59:00 Test Item Value Reference Range Interpretation [...] 87 U/L 8-55 H code = ALT) Ubixucfgm7138-63-08 20:59:00 Test Item Value Reference Range Interpretation Comments Chemistry (test code = LIP) 32 U/L 8-78 N Chemistry - Odbiyjd4132-60-21 20:59:00 Test Item Value Reference Range Interpretation Comments Chemistry - Lactate (test code = 2.1 mmol/L 0.5-2.2 N LACTSEP-T) Jhftgszoqm4135-08-23 20:43:00 Test Item Value Reference Range Interpretation [...] = UABLD) Negative Negative Urine Source: Urine KjxtjmIipongkhfo4648-61-63 20:37:00 Test Item Value Reference Range Interpretation [...]
[2021-03-17 11:13] LABS: Absolute Lymphocytes (CBC) 0.9 K/uL (0.7-4.9); Basophils % 0.6 % (0-1.3); Hematocrit 34.5 % (36.0-45.0); Lymphocytes % 14.4 % (15.3-44.8); MPV 6.9 fL (7.6-11.3); RBC Red Blood Cell Count 3.93 M/uL (3.86-4.86)
[2021-03-17 11:29] LABS: Albumin 3.4 g/dL (3.4-5.0); Bilirubin Direct 1.1 mg/dL (0-0.2); Bilirubin Total 1.5 mg/dL (0.2-1.0); Potassium 4.1 mmol/L (3.5-5.1); Protein, Total 8.5 g/dL (6.4-8.2)
--- NOTE | 2021-03-17 12:11 | RAD REPORT ---
EXAM DESCRIPTION: CTAbdomen Pelvis W Contrast - 03/17/2021 11:56 am CLINICAL HISTORY: Abd pain;Nausea / vomiting COMPARISON: Abdomen Pelvis W Contrast dated 01/23/2021; Abdomen Pelvis W Contrast dated ; Abdomen Pelvis W Contrast dated 10/29/2020; Abdomen Pelvis W Contrast dated 09/05/2020; Abdomen Pelvis Wo Contrast dated 01/30/2021 TECHNIQUE: CT of the abdomen and pelvis was performed. All CT scans are performed using dose optimization technique as appropriate and may include automated exposure control or mA/KV adjustment according to patient size. FINDINGS: Lower chest: Scattered coronary artery calcifications. No pericardial effusion. Liver: Pneumobilia. No suspicious liver lesions. Biliary: No biliary ductal dilatation. Cholecystectomy. Pneumobilia may be from prior sphincterotomy. This has been present on prior CTs. Stomach: No significant focal abnormality. Duodenum: No significant focal abnormality. Pancreas: No significant abnormality. Spleen: No significant abnormality. Adrenal: No suspicious lesions. Kidney/ureter: No hydronephrosis. No renal calculi. Too small to characterize and/or benign appearing renal lesions are noted. Retroperitoneum: No retroperitoneal adenopathy. Vascular: No aneurysm. Bowel: No significant focal abnormality. Appendectomy. Peritoneum: No ascites or free air. Bladder: Grossly unremarkable. Reproductive: No adnexal masses. Bones: No acute fracture. Other: n/a IMPRESSION: No acute intra-abdominal or pelvic finding. Incidental findings as noted above.
--- NOTE | 2021-03-17 12:28 | ER ---
Nurse's Notes [facility] Name: Yessenia Aleman Age: 60 yrs Sex: Female : 1960 Arrival Date: 03/17/2021 Time: 10:32 Bed 15 Private MD: Diagnosis: Upper abdominal pain, unspecified Presentation: 03/17 10:39 Chief complaint: Patient states: Abd pain with N/V. Active dry heaves in triage. Ebola ll1 Screen: Patient denies travel to an Ebola-affected area in the 21 days before illness onset. Initial Sepsis Screen: Does the patient meet any 2 criteria? No. Patient's initial sepsis screen is negative. Does the patient have a suspected source of infection? Yes: Acute abdominal pain. Risk Assessment: Do you want to hurt yourself or someone else? Patient reports no desire to harm self or others. Onset of symptoms is unknown. 10:39 Method Of Arrival: Ambulatory ll1 10:39 Acuity: HOLLI 3 ll1 10:46 Coronavirus screen: nausea, vomiting. iw Triage Assessment: 10:45 General: Appears distressed, uncomfortable, obese, Behavior is cooperative, appropriate bp for age, anxious. Pain: Complains of pain in left lower quadrant. EENT: No deficits noted. Neuro: No deficits noted. Cardiovascular: No deficits noted. Respiratory: No deficits noted. GI: Reports nausea, vomiting. : No signs and/or symptoms were reported regarding the genitourinary system. Derm: No deficits noted. Musculoskeletal: No deficits noted. Historical: - Allergies: 10:35 Codeine; ll1 - PMHx: 10:35 Anxiety; Arthritis; biliary chirrosis; biliary disease; Chronic Pancreatitis; ll1 Cirrhosis; Hypertension; Pancreatitis; Pneumonia; - PSHx: 10:35 Appendectomy; Biliary stent removal; Biliary stents; Cholecystectomy; ll1 - Immunization history:: Adult Immunizations unknown. - Family history:: not pertinent. - Social history:: Smoking status: unknown. - Hospitalizations: : No recent hospitalization is reported. Screenin:07 Abuse screen: Denies threats or abuse. Denies injuries from another. Nutritional bp screening: No deficits noted. Tuberculosis screening: No symptoms or risk factors identified. Fall Risk None identified. Assessment: 10:35 General: SEE TRIAGE NOTE. bp 11:00 Reassessment: No changes from previously documented assessment. Patient and/or family bp updated on plan of care and expected duration. Pain level reassessed. CT PENDING. 11:51 Reassessment: No changes from previously documented assessment. Patient and/or family bp updated on plan of care and expected duration. Pain level reassessed. PT TO CT. 12:46 Reassessment: PT D/C HOME AMBULATORY WITH FAMILY, DX WITH ABDOMINAL PAIN. bp Vital Signs: 10:46 BP 188 / 125; Pulse 88; Resp 18 S; Temp 98.4; Pulse Ox 100% on R/A; Weight 79.38 kg; iw Height 5 ft. (152.40 cm); Pain 10/10; 11:09 BP 182 / 100; Pulse 79; Resp 17; Pulse Ox 97% on R/A; bp 11:51 BP 155 / 90; Pulse 70; Resp 17; Pulse Ox 98% ; bp 12:40 BP 172 / 85; Pulse 84; Resp 17; Pulse Ox 98% ; bp 10:46 Body Mass Index 34.18 (79.38 kg, 152.40 cm) iw ED Course: 10:32 Patient arrived in ED. kc5 10:33 Meek Fitzpatrick MD is Attending Physician. rn 10:35 Arm band placed on Patient placed in an exam room, on a stretcher. ll1 10:40 Triage completed. ll1 10:43 Abe Mar, LUCIUS is Primary Nurse. bp 11:00 Inserted saline lock: 20 gauge in right antecubital area, using aseptic technique. bp Blood collected. 11:07 Patient has correct armband on for positive identification. Bed in low position. Call bp light in reach. Side rails up X2. 11:56 CT Abd/Pelvis - IV Contrast Only In Process Unspecified. EDMS 12:46 No provider procedures requiring assistance completed. IV discontinued, intact, bp bleeding controlled, No redness/swelling at site. Pressure dressing applied. Administered Medications: 11:00 Drug: NS 0.9% 1000 ml Route: IV; Rate: 1000 ml; Site: right antecubital; bp 12:49 Follow up: IV Status: Completed infusion; IV Intake: 1000ml bp 11:00 Drug: Demerol (meperidine) 50 mg Route: IVP; Site: right antecubital; bp 11:55 Follow up: Response: No adverse reaction; Pain is decreased bp 11:00 Drug: Zofran (Ondansetron) 4 mg Route: IVP; Site: right antecubital; bp 11:54 Follow up: Response: No adverse reaction; Nausea is decreased bp 12:30 Drug: Demerol (meperidine) 50 mg Route: IVP; Site: right antecubital; bp 12:32 Follow up: Response: Pain is decreased bp Intake: 12:49 IV: 1000ml; Total: 1000ml. bp Outcome: 12:28 Discharge ordered by . rn 12:46 Discharged to home ambulatory, with family. bp 12:46 Condition: good 12:46 Discharge instructions given to patient, Instructed on discharge instructions, follow up and referral plans. medication usage. 12:50 Patient left the ED. bp Signatures: Dispatcher [employer] EDMS Shabana Montenegro RN Meek Britton MD MD rn Peltier, Brian, RN RN bp Lewis, Lynsay, RN RN llKayla Liz 5
--- NOTE | 2021-03-17 12:29 | EDPHYS ---
Physician Documentation [facility] Name: Yessenia Aleman Age: 60 yrs Sex: Female : 1960 Arrival Date: 03/17/2021 Time: 10:32 Bed 15 Private MD: ED Physician Meek Fitzpatrick HPI: 03/17 10:55 This 60 yrs old Female presents to ER via Ambulatory with complaints of rn Abdominal Pain. 10:55 The patient presents with abdominal pain. Onset: The symptoms/episode began/occurred 3 rn day(s) ago. The symptoms do not radiate. Associated signs and symptoms: Pertinent positives: nausea and vomiting, Pertinent negatives: blood in stools, fever. The symptoms are described as achy. Modifying factors: The symptoms are alleviated by nothing, the symptoms are aggravated by touching the area. Severity of pain: At its worst the pain was moderate in the emergency department the pain is unchanged. The patient has experienced similar episodes in the past, chronically. The patient has not recently seen a physician. Patient reports mid and upper abdominal pain for the last few days. Associated with nausea and vomiting. No blood in the stool. No fever. Feels like her chronic pancreatitis. States has been doing okay the last couple of months. No changes in medication or recent procedure.. Historical: - Allergies: 10:35 Codeine; ll1 - PMHx: 10:35 Anxiety; Arthritis; biliary chirrosis; biliary disease; Chronic Pancreatitis; ll1 Cirrhosis; Hypertension; Pancreatitis; Pneumonia; - PSHx: 10:35 Appendectomy; Biliary stent removal; Biliary stents; Cholecystectomy; ll1 - Immunization history:: Adult Immunizations unknown. - Family history:: not pertinent. - Social history:: Smoking status: unknown. - Hospitalizations: : No recent hospitalization is reported. ROS: 10:55 Constitutional: Negative for fever, chills, and weight loss, Eyes: Negative for injury, rn pain, redness, and discharge, Neck: Negative for injury, pain, and swelling, Cardiovascular: Negative for chest pain, palpitations, and edema, Respiratory: Negative for shortness of breath, cough, wheezing, and pleuritic chest pain, Abdomen/GI: Negative for diarrhea, and constipation, Back: Negative for injury and pain, MS/Extremity: Negative for injury and deformity, Skin: Negative for injury, rash, and discoloration, Neuro: Negative for headache, weakness, numbness, tingling, and seizure. Exam: 10:55 Constitutional: This is a well developed, well nourished patient who is awake, alert, rn did not appear in distress when walking to and from bathroom, once got in bed laid on her side and seemed to be more in pain than she was just prior. Head/Face: Normocephalic, atraumatic. Eyes: Periorbital areas with no swelling, redness, or edema. Cardiovascular: Regular rate and rhythm. No pulse deficits. Respiratory: No increased work of breathing, no retractions or nasal flaring. Abdomen/GI: Mild periumbilical and epigastric tenderness without masses or peritoneal signs. Skin: Warm, dry MS/ Extremity: Pulses equal, no cyanosis. Neuro: Awake and alert, GCS 15 Vital Signs: 10:46 BP 188 / 125; Pulse 88; Resp 18 S; Temp 98.4; Pulse Ox 100% on R/A; Weight 79.38 kg; iw Height 5 ft. (152.40 cm); Pain 10/10; 11:09 BP 182 / 100; Pulse 79; Resp 17; Pulse Ox 97% on R/A; bp 11:51 BP 155 / 90; Pulse 70; Resp 17; Pulse Ox 98% ; bp 12:40 BP 172 / 85; Pulse 84; Resp 17; Pulse Ox 98% ; bp 10:46 Body Mass Index 34.18 (79.38 kg, 152.40 cm) iw MDM: 10:36 Patient medically screened. rn 12:26 Differential diagnosis: diverticulitis, gastritis, gastroesophageal reflux disease, rn non-specific abd pain, pancreatitis, Peptic Ulcer Disease, Pyelonephritis, Ureterolithiasis, urinary tract infection. Data reviewed: vital signs, nurses notes, old medical records, lab test result(s), radiologic studies, CT scan, and as a result, I will discharge patient. Counseling: I had a detailed discussion with the patient and/or guardian regarding: the historical points, exam findings, and any diagnostic results supporting the discharge/admit diagnosis, lab results, radiology results, the need for outpatient follow up, to return to the emergency department if symptoms worsen or persist or if there are any questions or concerns that arise at home. Response to treatment: the patient's symptoms have markedly improved after treatment, and as a result, I will discharge patient. 12:27 Special discussion: Based on the patient's Hx, exam, and Dx evaluation, there is no rn indication for emergent surgery or inpatient Tx. It is understood by the patient/guardian that if the Sx's persist or worsen they need to return immediately for re-evaluation. I discussed with the patient/guardian in detail that at this point there is no indication for admission to the hospital. It is understood, however, that if the symptoms persist or worsen the patient needs to return immediately for re-evaluation. ED course: Slight increase in LFTs, but imaging does not show anything acute. Will DC home with GI follow-up, patient already has GI appointment. Appears much more comfortable and feels better. On her phone. No vomiting here.. 03/17 10:44 Order name: Basic Metabolic Panel; Complete Time: 11:52 rn 03/17 10:44 Order name: CBC with Diff; Complete Time: 11:52 rn 03/17 10:44 Order name: Hepatic Function; Complete Time: 11:52 rn 03/17 10:44 Order name: Lipase; Complete Time: 11:52 rn 03/17 10:44 Order name: CT Abd/Pelvis - IV Contrast Only; Complete Time: 12:12 rn 03/17 10:46 Order name: Urine Dipstick-Ancillary; Complete Time: 11:52 EDMS 03/17 10:44 Order name: IV Saline Lock; Complete Time: 11:06 rn 03/17 10:44 Order name: Labs collected and sent; Complete Time: 11:06 rn Administered Medications: 11:00 Drug: NS 0.9% 1000 ml Route: IV; Rate: 1000 ml; Site: right antecubital; bp 12:49 Follow up: IV Status: Completed infusion; IV Intake: 1000ml bp 11:00 Drug: Demerol (meperidine) 50 mg Route: IVP; Site: right antecubital; bp 11:55 Follow up: Response: No adverse reaction; Pain is decreased bp 11:00 Drug: Zofran (Ondansetron) 4 mg Route: IVP; Site: right antecubital; bp 11:54 Follow up: Response: No adverse reaction; Nausea is decreased bp 12:30 Drug: Demerol (meperidine) 50 mg Route: IVP; Site: right antecubital; bp 12:32 Follow up: Response: Pain is decreased bp Disposition Summary: 03/17/21 12:28 Discharge Ordered Location: Home rn Problem: new rn Symptoms: have improved rn Condition: Stable rn Diagnosis - Upper abdominal pain, unspecified rn Followup: rn - With: Private Physician - When: As needed - Reason: Recheck today's complaints, Re-evaluation by your physician Discharge Instructions: - Discharge Summary Sheet rn - Abdominal Pain, Adult rn Forms: - Medication Reconciliation Form rn - Thank You Letter rn - Antibiotic 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
[2021-03-17 12:58] VITALS: TEMP 98.4
[2021-03-17 13:01] VITALS: O2SAT 98
[2021-03-17 13:02] VITALS: BP 172/85
== END 2021-03-17 12:50 | disposition home or self-care (01) ==
LOC: ER 10:30
DX: R10.10 Upper abdominal pain, unspecified (principal)
CPT/HCPCS: 96361; 85025; 80048; 36415; 80076; 81003; 83690; 74177; 96375; 96374; 99284; Q9967; J2175 ×2; J7030; J2405

== ENCOUNTER 2021-03-27 20:33 | Emergency (ER) | payer OTHER ==
--- OUTSIDE RECORDS SUMMARY | 2021-03-27 21:01 | XMS REPORT | Continuity of Care Document ---
:1960 Author Organization [facility] t Address [address] [place] [address] Care Team Providers Name Role Phone PREZAS Primary Care Physician Unavailable VERA, S Attending Clinician Unavailable ABBY EPNNY Attending Clinician Unavailable NGUYỄN, LUIS ANTONIO Attending Clinician Unavailable ANIVALUM, L Attending Clinician Unavailable EBRAHIM Attending Clinician Unavailable Ebgilmer PROFESSIONAL DEVELOPMENT DIRECTOR Attending Clinician HAKEEM Attending Clinician Unavailable Vaccine, Db Uc Attending Clinician Unavailable Hakeem WEBSTER Attending Clinician Kaiden HAMMONDS Attending Clinician Unavailable Kaiden Hammonds NP Attending Clinician WON FISHER Attending Clinician Unavailable Won Fisher MD Attending Clinician Lan DO, J Attending Clinician Doctor Unassigned, Name Attending Clinician Unavailable Green PROFESSIONAL DEVELOPMENT DIRECTOR Attending Clinician GREEN Attending Clinician Unavailable Karo KAN, A Attending Clinician Unavailable Wu WEBSTER, L Attending Clinician Williamjaimee PROFESSIONAL DEVELOPMENT DIRECTOR, F Attending Clinician James WEBSTER Attending Clinician Urban WEBSTER Attending Clinician Laurent WEBSTER M Attending Clinician Moraima ARREDONDO, R Attending Clinician Bia MARSH Attending Clinician Unavailable Vera WEBSTER, S Attending Clinician Sydnie Llamas Attending Clinician Only, Test Attending Clinician Unavailable Sumit MA Attending Clinician Rayray Ayala MD Attending Clinician Pob, Lab Main Attending Clinician Unavailable Asaf PROFESSIONAL DEVELOPMENT DIRECTOR Attending Clinician Lab, Fam Pob I Attending Clinician Unavailable Kayy PERRIN Attending Clinician Guerline Slade Attending Clinician Maxine Grayson MD Attending Clinician Micaela WEBSTER Attending Clinician Mazin WEBSTER Attending Clinician Diego Grigsby MD Attending Clinician Maxine GRAYSON Attending Clinician Unavailable Singer CANALES Attending Clinician Attending Clinician Unavailable Christina WEBSTER, L Attending Clinician Monika ORTIZ, S Attending Clinician [...] Unavailable LUIS ANTONIO NGUYỄN Admitting Clinician Unavailable Kaiden HAMMONDS Admitting Clinician Unavailable WON FISHER Admitting Clinician Unavailable Urban WEBSTER Admitting Clinician Maxine Gamez MD Admitting Clinician Diego Grigsby MD Admitting Clinician Maxine GRAYSON Admitting Clinician Unavailable Admitting Clinician Unavailable Maxim WEBSTER Admitting Clinician Haley Cox Admitting Clinician Unavailable Payers Payer Name Policy Type Policy Number Effective Date Expiration Date Maxine hammonds MEDICARE PART A [id number] 2015 \\T\\ B 00:00:00 CIGNA II [id number] 2018 00:00:00 MEDICARE A B [id number] 2015 00:00:00 CIGNA [id number] 2018 HMO/POS/OPEN 00:00:00 ACCESS BCBS OS [id number] 2010 2020 POS/PPO/EPO 1 00:00:00 00:00:00 Advance Directives Directive Decision Effective Termination Comments Source Date Date Healthcare Agents on N/A [facility] FileNameRelationshipHealthcare [facility] [place] [facility] Agent Medical RelationshipCommunicationVictor Branch [facility] Care [phone] (Mobile) [email or web address] Problems Condition Condition Condition Status Onset Resolution Last Treating Co mments Source Name Details Category Date Date Treatment Clinician Date 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 it[facility] of cirrhosis cirrhosis [place] [facility] Cerebrovas Cerebrovas Disease Active 2019-04 U nivers cular cular 0-22 ity of accident accident 00:00: [place] (CVA) due (CVA) due 00 Medi brandy 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 Arthritis Arthritis Disease Active 2019-04 Uni vers 0-21 ity of 00:00: [place] 00 [facility] Toxic Toxic Disease Active 2019-04 Univers metabolic metabolic 0-20 ity of encephalop encephalop 00:[place] at[place] athy 00 [facility] Altered Altered Disease Active 2019-04 Univers mental mental 0-18 ity of status status 00:00: [place] 00 [facility] Branch Abdominal Abdominal Disease Active 2019- Uni vers pain pain 8-03 ity of 00:00: [place] 00 Medical Branch Peripheral Peripheral Disease Active 2019- U nivers nerve nerve 7-10 ity of disease disease 00:00: [place] [facility] Choledocho Choledocho Disease Active 2018-0 U nivers lithiasis lithiasis 7-20 ity of 00:00: [place] [facility] Constipati Constipati Disease Active 2018- U nivers on on 7-18 ity of 00:00: [place] [facility] Acute Acute Disease Active 2018- Univers appendicit appendicit 6-10 it y of is is 00:00: [place] 00 Medical Branch Transamini Transamini Disease Active 2017- U nivers tis tis 8-17 ity of 00:00: [place] [facility] Acute Acute Disease Active 2017- Univers cystitis cystitis 8-15 ity of without without 00:00: [place] hematuria hematuria 00 [facility] brandy Branch History of History of Disease Active 2017 U nivers biliary biliary 8-15 ity of duct stent duct [place] 00:[place] placement placement 00 [place] brandy Branch 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 8-15 it y of vomiting vomiting 00:00: [place] with with 00 Medical nausea nausea Branch Intractabl Intractabl Disease Active 2017-0 U nivers e e 8-15 ity of epigastric epigastric 00:00: [place] abdominal abdominal 00 Medi brandy pain pain Branch Obesity Obesity Disease Active 2015-04 Univers (BMI (BMI 1-17 ity of 30-39.9) 30-39.9) 00:00: [place] [facility] Chronic Chronic Disease Active 2015- Univers pain pain 7-27 ity of disorder disorder 00:00: [place] 00 Medical Branch Hypokalemi Hypokalemi Disease Active 2015- U nivers a a 7-27 ity of 00:00: [place] 00 Medical Branch Hypokalemi Hypokalemi Disease Active 2015- U nivers c periodic c periodic 7-27 it y of paralysis paralysis 00:00[place] Biliary Biliary Disease Active Univers disease disease 5-16 ity of 00:00: [place] 00 [facility] Primary Primary Disease Active Univers biliary biliary 5-05 ity of cholangiti cholangiti 00:00: [place] [facility] Chronic Chronic Disease Active 2012-04 Univers pancreatit pancreatit 1-14 it y of is is 00:00: [place] [facility] Alcohol Alcohol Disease Active 2012-04 Univers use use 1-08 ity of 00:00: [place] 00 [facility] 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 1-08 ity of 00:00: [place] 00 Medical Branch Elevated Elevated Disease Active 2012-04 Unive rs liver liver 1-08 ity of enzymes enzymes 00:00: [place] 00 Medical [facility] Essential Essential Disease Active 2012-04 Uni vers hypertensi hypertensi 1-08 it y of on on 00:00: [place] [facility] Fatty Fatty Disease Active 2012-04 Univers liver liver 1-08 ity of 00:00: [place] 00 [facility] Immunity Immunity Disease Active 2012-04 Unive rs status status 1-08 ity of testing testing 00:00: [place] 00 Medical Branch Nausea & Nausea & Disease [...] History SDOH University o f Alcohol Std [place] [facility] Drinks Branch History SDOH University o f Alcohol Binge [place] [facility] Exposure to Not sure University of SARS-CoV-2 [place] [facility] (event) Branch History SDOH University o f Alcohol Comment [place] [facility] Alcohol intake 2021-03-20 2021-03-20 Lifetime University of 00:00:00 00:00:00 non-drinker [place] [facility] (finding) Branch Tobacco use and 2018-11-15 2018-11-15 Never used Universit y of exposure 00:00:00 00:00:00 [place] [facility] History [facility] 2018-11-15 2018-11-15 1 University o f Alcohol Frequency 00:00:00 00:00:00 [facility] edical Branch History [facility] 2018-11-15 2018-11-15 3 University o f Financial 00:00:00 00:00:00 [place] [facility] History [facility] Food 2018-11-15 2018-11-15 1 Univers ity of Worry 00:00:00 00:00:00 [place] [facility] History [facility] Food 2018-11-15 2018-11-15 1 Univers ity of Scarcity 00:00:00 00:00:00 [place] [facility] History [facility] 2018-11-15 2018-11-15 2 University o f Transport Med 00:00:00 00:00:00 [place] [facility] History [facility] 2018-11-15 2018-11-15 2 [place] o f Transport Non-Med 00:00:00 [facility]00 [facility] [place] Sex Assigned At [birth year] Universit y of 00:00:00 00:00:00 [facility] Smoking Status Start Date Stop Date Source Never smoker [facility] Medications Ordered Filled Start Stop Current Ordering Indication Dosage Frequency Signature Comments Components Source Medication Medication Date Date Medication? Clinician (SIG) Name Name FENTanyl PF 2020-04- No 50ug 50 mcg, Un you (SUBLIMAZE 05-27 Slow IV ity o f (PF)) 03:45: 02:50 Push, [place] injection 00 :00 ONCE, 1 Medical 50 mcg dose, On Branch 03/25/21 at 2145, STAT hydralAZINE 2020-04- No 10mg 10 mg, Uni vers (APRESOLINE 05-27 Slow IV ity of ) injection 03:30: 02:51 [place] 10 mg 00 :00 ONCE, 1 Medical dose, On Branch 03/25/21 at 2130, [place]
In dication: Hypertensi ve Emergency dicyclomine 2020-04 Yes [id number] 20mg 20 mg, Univers (BENTYL) 12 Intramuscu ity o f injection 02:00: lar, QID, [place] as 20 mg 00 First dose Medical on Sat Branch 03/25/21 at 2000, Until Discontinu ed, Routine iopamidol 2020-04- No [id number] 120mL 120 mL, Univers (ISOVUE 05-27 Intravenou ity o f 370-500 mL) 01:58: 01:58 s, ONCE, 1 [place] injection 00 :00 dose, On Medica l 120 mL Sat Branch 03/25/21 at 2015, Routine NaCl 0.9% 2020-04- No [id number] 1000mL at 999 Univers (NS) bolus 05-27 mL/hr, ity of infusion 01:30: 03:00 1,000 mL, [place] as 1,000 mL 00 :00 IV Medical Infusion, Branch ONCE, 1 dose, On Unm [facility] 03/25/21 at 1930, [place] ondansetron 2020-04- No [id number] 4mg 4 mg, Slow Univers (ZOFRAN 05-27 IV Push, ity of (PF)) 01:30: 01:48 ONCE, 1 [place] injection 4 00 :00 dose, On Medi brandy mg Sat Branch 03/25/21 at 1930, [place] famotidine 2020-04- No [id number] 20mg 20 mg, Univers (PEPCID 05-27 Slow IV ity of (PF)) 01:30: 01:48 Push, [place] injection 00 :00 ONCE, 1 Medical 20 mg dose, On Branch [facility] 03/25/21 at 1930, [place] ketorolac 2020-04- No [id number] 30mg 30 mg, U nivers (TORADOL) 05-27 Slow IV ity of injection 01:30: 01:49 Push, [place] 30 mg 00 :00 ONCE, 1 Medical dose, On Branch [facility] 03/25/21 at 1930, [place] FENTanyl PF 2020-04- No [id number] 75ug 75 mcg, Univers (SUBLIMAZE 05-27 Slow IV ity o f (PF)) 01:30: 01:48 Push, [place] injection 00 :00 ONCE, 1 Medical 75 mcg dose, On Branch 03/25/21 at 1930, STAT famotidine 2020-04- No 20mg 20 mg, Univ ers (PEPCID AC) 05-22 Oral, ity of tablet 20 02:00: 01:13 ONCE, 1 [place] mg 00 :00 dose, On Medical Mon Branch 03/20/21 at 2000, [place] FENTanyl PF 2020-04- No 25ug 25 mcg, Un you (SUBLIMAZE 05-22 Slow IV ity o f (PF)) 02:00: 01:13 Push, [place] injection 00 :00 ONCE, 1 Medical 25 mcg dose, On Branch [facility] 03/20/21 at 2000, STAT diphenhydrA 2020-04 No 12.5mg 12.5 mg, Univers MINE 05-22 Slow IV ity of (BENADRYL) 02:00: 01:13 Push, [place] injection 00 :00 ONCE, 1 Medical 12.5 mg dose, On Branch [facility] 03/20/21 at 2000, STAT metoclopram 2020-04- No 10mg 10 mg, Uni vers selena HCl 05-22 Slow IV ity of (REGLAN) 02:00: 01:13 Push, [place] injection 00 :00 ONCE, 1 Medical 10 mg dose, On Branch [facility] 03/20/21 at 2000, [place] FENTanyl PF 2020-04- No 75ug 75 mcg, Un you (SUBLIMAZE 05-21 Slow IV ity o f (PF)) 23:30: 22:45 Push, [place] injection 00 :00 ONCE, 1 Medical 75 mcg dose, On Branch [facility] 03/20/21 at 1730, Routine ketorolac 2020-04- No 30mg 30 mg, Unive rs (TORADOL) 05-21 Slow IV ity of injection 23:30: 22:44 Push, [place] 30 mg 00 :00 ONCE, 1 Medical dose, On Branch [facility] 03/20/21 at 1730, Routine
membership sales advisor approving Restricted medication : MEKA HAMMONDS ondansetron 2020-04- No 4mg 4 mg, Slow Univers (ZOFRAN 05-21 IV Push, ity of (PF)) 23:30: 22:44 ONCE, 1 [place] injection 4 00 :00 dose, On Medi brandy mg [facility] Branch 03/20/21 at 1730, [place] dicyclomine 2020-04 No 20mg 20 mg, Uni vers (BENTYL) 05-21 Intramuscu ity of injection 23:30: 23:15 lar, ONCE, [place] 20 mg 00 :00 1 dose, On Medical [facility] Branch 03/20/21 at 1730, Routine iopamidol 2020-04- No 100mL 100 mL, Uni vers (ISOVUE 05-21 Intravenou ity o f 370-500 mL) 22:50: 23:15 s, ONCE, 1 [place] injection 00 :00 dose, On Medica l 100 mL [facility] Branch 03/20/21 at 1715, Routine ondansetron 2020-04 No ondansetro Univers 4 mg tablet 05-21 n HCl 4 mg i ty of 18:55: 00:00 tablet [place] 24 :00 Medical Branch metoclopram 2020-04 Yes [id number] 10mg Take 1 Univers selnea HCl 10 2-06 tablet by ity of mg tablet 00:00: mouth [place] 00 every 6 Medical (six) Branch hours as needed for Nausea and Vomiting (N/V). dicyclomine 2020-04 Yes [id number] 20mg Take 1 Univers 20 mg 2-06 tablet by ity of tablet 00:00: mouth 4 [place] 00 (four) Medical times Branch daily. metoclopram 2020-04 Yes [id number] 10mg Take 1 Univers selena HCl 10 2-06 tablet by ity of mg tablet 00:00: mouth [place] 00 every 6 Medical (six) Branch hours as needed for Nausea and Vomiting (N/V). dicyclomine 2020-04 Yes [id number] 20mg Take 1 Univers 20 mg 2-06 tablet by ity of tablet 00:00: mouth 4 [place] 00 (four) Medical times Branch daily. metoclopram 2020-04 Yes [id number] 10mg Take 1 Univers selena HCl 10 2-06 tablet by ity of mg tablet 00:00: mouth [place] 00 every 6 Medical (six) Branch hours as needed for Nausea and Vomiting (N/V). dicyclomine 2020-04 Yes [id number] 20mg Take 1 Univers 20 mg 2-06 tablet by ity of tablet 00:00: mouth 4 [place] 00 (four) Medical times Branch daily. famotidine 2020-04- Yes [id number] 20mg Take 1 Univers 20 mg 2- 12-17 tablet by ity of tablet 00:00: 05:59 mouth at [place] 00 :00 bedtime Medical for 10 Branch days. famotidine 2020-04- Yes [id number] 20mg Take 1 Univers 20 mg 2- 12-17 tablet by ity of tablet 00:00: 05:59 mouth at [place] 00 :00 bedtime Medical for 10 Branch days. famotidine 2020-04- Yes [id number] 20mg Take 1 Univers 20 mg 2- 12-17 tablet by ity of tablet 00:00: 05:59 mouth at [place] 00 :00 bedtime Medical for 10 Branch days. ketorolac 2020-04- No 30mg 30 mg, Unive rs (TORADOL) 04-15 Slow IV ity of injection 02:15: 01:11 Push, [place] 30 mg 00 :00 ONCE, 1 Medical dose, On Branch [place] 02/12/21 at 2115, Routine
membership sales advisor approving Restricted medication : ERASMO GRAYSON proMETHazin 2020-04- No 25mg 25 mg, IV Univers e 04-15 Piggyback, ity of (PHENERGAN) 02:15: 01:12 ONCE, 1 [place] 25 mg in 00 :00 dose, On Medical NaCl 0.9% [place] Branch (NS) 50 mL 02/12/21 piggyback at 2115, 50 mL iopamidol 2020-04- No [id number] 120mL 120 mL, Univers (ISOVUE 02-12 Intravenou ity o f 370-500 mL) 23:30: 22:13 s, ONCE, 1 [place] injection 00 :00 dose, On Medica l 120 mL [place] Branch 02/12/21 at 1830, Routine morpHINE 2020-04- No 4mg 4 mg, Slow Un you injection 4 02-12 IV Push, ity of mg 23:15: 22:23 ONCE, 1 [place] 00 :00 dose, On Medical [place] Branch 02/12/21 at 1815, STAT famotidine 2020-04 No 20mg 20 mg, Univ ers (PEPCID 0-31 10-31 Slow IV ity of (PF)) 21:30: 20:28 Push, [place] injection 00 :00 ONCE, 1 Medical 20 mg dose, On Branch [place] 02/12/21 at 1630, [place] NaCl 0.9% 2020-04- No 1000mL at 999 Uni vers (NS) bolus 0-31 10-31 mL/hr, ity of infusion 21:30: 21:30 1,000 mL, [place] as 1,000 mL 00 :00 IV Medical Infusion, Branch ONCE, 1 dose, On [place] 02/12/21 at 1630, [place] ondansetron 2020-04- No 8mg 8 mg, Slow Univers (ZOFRAN 0-31 10- IV Push, ity of (PF)) 21:30: 20:23 ONCE, 1 [place] injection 8 00 :00 dose, On Medi brandy mg [facility] 02/12/21 at 1630, [place] ketorolac 2020-04- No 30mg 30 mg, Unive rs (TORADOL) 0- 10-31 Slow IV ity of injection 21:30: 20:23 Push, [place] 30 mg 00 :00 ONCE, 1 Medical dose, On Branch [place] 02/12/21 at 1630, [place]
Fa culty member approving Restricted medication : ROSALINDA FISHER morpHINE 2020-04- No 4mg 4 mg, Slow Un you injection 4 0-12 02- IV Push, ity of mg 21:30: 20:23 ONCE, 1 [place] 00 :00 dose, On Medical [facility] 02/12/21 at 1630, STAT ondansetron 2020-04 Yes [id number] 8mg Take 1 Univers 8 mg tablet 0-31 tablet by ity of 00:00: mouth [place] 00 every 8 Medical (eight) Branch hours as needed for Nausea and Vomiting (N/V). ondansetron 2020-04- No [id number] 8mg Take 1 Univers 8 mg tablet 0-31 12-06 tablet by it y of 00:00: 00:00 [...] No 20mg 20 mg, Univ ers (PEPCID 001-18 Slow IV ity of (PF)) 06:00: 05:08 Push, [place] injection 00 :00 ONCE, 1 Medical 20 mg dose, On Branch 01/18/21 at 0100, Routine maalox:diph 2020-04 No 15mL 15 mL, Uni vers enhydrAMINE 001-18 Oral, ity of :lidocaine 06:00: 05:08 ONCE, 1 [place] 2 % viscous 00 :00 dose, On Medi brandy 1:1:1 Wed Branch ([facility] 01/18/21 at [facility]) 0100, oral Routine suspension 15 mL dicyclomine 2020-04 No 20mg 20 mg, Uni vers (BENTYL) 001-18 Oral, ity of tablet 20 06:00: 05:08 ONCE, 1 [place] mg 00 :00 dose, On Medical Wed Branch 01/18/21 at 0100, Routine iopamidol 2020-04 No [id number] 120mL 120 mL, Univers (ISOVUE 001-18 Intravenou ity o f 370-500 mL) 04:45: 03:33 s, ONCE, 1 [place] injection 00 :00 dose, On Medica l 120 mL Tue Branch 01/17/21 at 2345, Routine morpHINE 2020-04 No 4mg 4 mg, Slow Un you injection 4 0-01-18 IV Push, ity of mg 03:45: 02:58 ONCE, 1 [place] 00 :00 dose, On Medical Tue Branch 01/17/21 at 2245, STAT ondansetron 2020-04 No 4mg 4 mg, Slow Univers (ZOFRAN 0-01-18 IV Push, ity of (PF)) 03:45: 02:59 ONCE, 1 [place] injection 4 00 :00 dose, On Medi brandy mg Tue Branch 01/17/21 at 2245, [place] NaCl 0.9% 2020-04- No 1000mL at 999 Uni vers (NS) bolus 0-06 10-06 mL/hr, ity of infusion 03:45: 06:13 1,000 mL, [place] as 1,000 mL 00 :00 IV Medical Piggyback, Branch ONCE, 1 dose, On e 01/17/21 at 2245, STAT diazePAM 2 Yes 2mg Take 2 mg Un you mg tablet 9-25 by mouth. ity o f 11:25: [address] Branch erythromyci Yes erythromyc Univers n 5 mg/gram 9-25 in 5 ity of (0.5 %) 11:25: mg/gram [place] ophthalmic 57 (0.5 %) Medica l ointment eye Branch ointment ondansetron Yes ondansetro Univers 4 mg tablet 9-25 n HCl 4 mg it y of 11:25: tablet [address] Branch diazePAM 2 Yes 2mg Take 2 mg Un you mg tablet 9-25 by mouth. ity o f 11:25: [address] Branch erythromyci Yes erythromyc Univers n 5 mg/gram 9-25 in 5 ity of (0.5 %) 11:25: mg/gram [place] ophthalmic 57 (0.5 %) Medica l ointment eye Branch ointment ondansetron Yes ondansetro Univers 4 mg tablet 9-25 n HCl 4 mg it y of 11:25: tablet [address] Branch diazePAM 2 Yes 2mg Take 2 mg Un you mg tablet 9-25 by mouth. ity o f 11:25: [address] Branch erythromyci Yes erythromyc Univers n 5 mg/gram 9-25 in 5 ity of (0.5 %) 11:25: mg/gram [place] ophthalmic 57 (0.5 %) Medica l ointment eye Branch ointment ondansetron Yes ondansetro Univers 4 mg tablet 9-25 n HCl 4 mg it y of 11:25: tablet [place] [address] Medical Branch diazePAM 2 Yes 2mg Take 2 mg Un you mg tablet 9-25 by mouth. ity o f 11:25: [place] [address] Medical Branch erythromyci Yes erythromyc Univers n 5 mg/gram 9-25 in 5 ity of (0.5 %) 11:25: mg/gram [place] ophthalmic 57 (0.5 %) Medica l ointment eye Branch ointment ondansetron Yes ondansetro Univers 4 mg tablet 9-25 n HCl 4 mg it y of 11:25: tablet [place] [address] Medical Branch diazePAM 2 Yes 2mg Take 2 mg Un you mg tablet 9-25 by mouth. ity o f 11:25: [place] [address] Medical Branch erythromyci Yes erythromyc Univers n 5 mg/gram 9-25 in 5 ity of (0.5 %) 11:25: mg/gram [place] ophthalmic 57 (0.5 %) Medica l ointment eye Branch ointment ondansetron Yes ondansetro Univers 4 mg tablet 9-25 n HCl 4 mg it y of 11:25: tablet [place] [address] Medical Branch diazePAM 2 Yes 2mg Take 2 mg Un you mg tablet 9-25 by mouth. ity o f 11:25: [place] [address] Medical Branch erythromyci Yes erythromyc Univers n 5 mg/gram 9-25 in 5 ity of (0.5 %) 11:25: mg/gram [place] ophthalmic 57 (0.5 %) Medica l ointment eye Branch ointment ondansetron Yes ondansetro Univers 4 mg tablet 9-25 n HCl 4 mg it y of 11:25: tablet [place] [address] Medical Branch diazePAM 2 Yes 2mg Take 2 mg Un you mg tablet 9-25 by mouth. ity o f 11:25: [place] [address] Medical Branch erythromyci Yes erythromyc Univers n 5 mg/gram 9-25 in 5 ity of (0.5 %) 11:25: mg/gram [place] ophthalmic 57 (0.5 %) Medica l ointment eye Branch ointment diazePAM 2 2021-0 Yes 2mg Take 2 mg Un you mg tablet 9-25 by mouth. ity o f 11:25: [place] [address] Medical Branch erythromyci Yes erythromyc Univers n 5 mg/gram 9-25 in 5 ity of (0.5 %) 11:25: mg/gram [place] ophthalmic 57 (0.5 %) Medica l ointment eye Branch ointment diazePAM 2 Yes 2mg Take 2 mg Un you mg tablet 9-25 by mouth. ity o f 11:25: [place] [address] Medical Branch erythromyci Yes erythromyc Univers n 5 mg/gram 9-25 in 5 ity of (0.5 %) 11:25: mg/gram [place] ophthalmic 57 (0.5 %) Medica l ointment eye Branch ointment albuterol Yes [id number] 2{puff} Inhale 2 Univers 90 9-25 Puffs ity of mcg/actuati 00:00: every 6 [place] as on inhaler 00 (six) Medical hours as Branch needed for Wheezing or Shortness of Breath. albuterol Yes [id number] 2{puff} Inhale 2 Univers 90 9-25 Puffs ity of mcg/actuati 00:00: every 6 [place] as on inhaler 00 (six) Medical hours as Branch needed for Wheezing or Shortness of Breath. albuterol Yes [id number] 2{puff} Inhale 2 Univers 90 9-25 Puffs ity of mcg/actuati 00:00: every 6 [place] as on inhaler 00 (six) Medical hours as Branch needed for Wheezing or Shortness of Breath. albuterol Yes [id number] 2{puff} Inhale 2 Univers 90 9-25 Puffs ity of mcg/actuati 00:00: every 6 [place] as on inhaler 00 (six) Medical hours as Branch needed for Wheezing or Shortness of Breath. albuterol Yes [id number] 2{puff} Inhale 2 Univers 90 9-25 Puffs ity of mcg/actuati 00:00: every 6 [place] as on inhaler 00 (six) Medical hours as Branch needed for Wheezing or Shortness of Breath. albuterol Yes [id number] 2{puff} Inhale 2 Univers 90 9-25 Puffs ity of mcg/actuati 00:00: every 6 [place] as on inhaler 00 (six) Medical hours as Branch needed for Wheezing or Shortness of Breath. albuterol Yes [id number] 2{puff} Inhale 2 Univers 90 9-25 Puffs ity of mcg/actuati 00:00: every 6 [place] as on inhaler 00 (six) Medical hours as Branch needed for Wheezing or Shortness of Breath. albuterol Yes [id number] 2{puff} Inhale 2 Univers 90 9-25 Puffs ity of mcg/actuati 00:00: every 6 [place] as on inhaler 00 (six) Medical hours as Branch needed for Wheezing or Shortness of Breath. albuterol Yes [id number] 2{puff} Inhale 2 Univers 90 9-25 Puffs ity of mcg/actuati 00:00: every 6 [place] as on inhaler 00 (six) Medical hours as Branch needed for Wheezing or Shortness of Breath. promethazin 2020- Yes [id number] 5mL Take 5 mL Univers e-dextromet 9-25 10-03 by mouth 4 i ty of horphan 00:00: 04:59 (four) [place] 6.25-15 00 :00 times Medical mg/5 mL daily as Branch syrup needed for Cough or Cold symptoms for up to 7 days. promethazin 2020- Yes [id number] 5mL Take 5 mL Univers e-dextromet 9-25 10-03 by mouth 4 i ty of horphan 00:00: 04:59 (four) [place] 6.25-15 00 :00 times Medical mg/5 mL daily as Branch syrup needed for Cough or Cold symptoms for up to 7 days. promethazin 2020- Yes [id number] 5mL Take 5 mL Univers e-dextromet 9-25 10-03 by mouth 4 i ty of horphan 00:00: 04:59 (four) [place] 6.25-15 00 :00 times Medical mg/5 mL daily as Branch syrup needed for Cough or Cold symptoms for up to 7 days. tiZANidine Yes Univers 2 mg tablet 9- ity of 00:00: [place] 00 Medical Branch tiZANidine Yes Univers 2 mg tablet 01-05 ity of 00:00: [facility] Branch tiZANidine Yes Univers 2 mg tablet 01-05 ity of 00:00: [facility] tiZANidine Yes Univers 2 mg tablet 01-05 ity of 00:00: [facility] tiZANidine Yes Univers 2 mg tablet 01-05 ity of 00:00: [facility] tiZANidine Yes Univers 2 mg tablet 01-05 ity of 00:00: [facility] tiZANidine Yes Univers 2 mg tablet 01-05 ity of 00:00: [place] [facility] tiZANidine Yes Univers 2 mg tablet 01-05 ity of 00:00: [facility] tiZANidine Yes Univers 2 mg tablet 01-05 ity of 00:00: [place] [facility] ketorolac 2020- No 30mg 30 mg, Unive rs (TORADOL) 12-30 Slow IV ity of injection 23:00: 22:03 Push, [place] 30 mg 00 :00 ONCE, 1 Medical dose, On Branch Sat12/30/20 at 1800, [place]
[facility] medication : MARU BAEZ [...] approving Restricted medication : MARU BAEZ dicyclomine No 20mg 20 mg, Uni vers [...] dose, On Branch 12/30/20 at 1800, Routine maalox:diph No 15mL 15 mL, Uni vers enhydrAMINE 12-30 Oral, ity of :lidocaine 21:45: 20:37 ONCE, 1 [place] 2 % viscous 00 :00 dose, On Medi brandy 1:1:1 Fri Branch (FIRST-MOUT 12/30/20 at [facility]) 1645, oral Routine suspension 15 mL famotidine No 20mg 20 mg, [facility] ers (PEPCID 12-30 Slow IV ity of (PF)) 21:45: 20:37 Push, [place] injection 00 :00 ONCE, 1 Medical 20 mg dose, On Branch 12/30/20 at 1645, Routine maalox:diph No 15mL 15 mL, Uni vers enhydrAMINE 12-30 Oral, ity of :lidocaine 21:45: 20:37 ONCE, 1 [place] 2 % viscous 00 :00 dose, On Medi brandy 1:1:1 Fri Branch (FIRST-MOUT 12/30/20 at [facility]) 1645, oral Routine suspension 15 mL famotidine 2020- No 20mg 20 mg, [facility] ers (PEPCID 12-30 Slow IV ity of (PF)) 21:45: 20:37 Push, [place] injection 00 :00 ONCE, 1 Medical 20 mg dose, On Branch Sat12/30/20 at 1645, Routine iopamidol 2020- No [id number] 80mL 80 mL, Univers (ISOVUE 12-30 Intravenou ity o f 370-500 mL) 20:00: 18:48 s, ONCE, 1 [place] injection 00 :00 dose, On Medica l 80 mL Fri Branch 12/30/20 at 1500, Routine iopamidol 2020- No [id number] 80mL 80 mL, Univers (ISOVUE 12-30 Intravenou ity o f 370-500 mL) 20:00: 18:48 s, ONCE, 1 [place] injection 00 :00 dose, On Medica l 80 mL Fri Branch 12/30/20 at 1500, Routine morpHINE 2020- No 4mg 4 mg, Slow Un you injection 4 12-30 IV Push, ity of mg 19:30: 18:35 ONCE, 1 [place] 00 :00 dose, On [facility] Branch 12/30/20 at 1430, STAT ondansetron 2020- No 4mg 4 mg, Slow Univers (ZOFRAN 12-30 IV Push, ity of (PF)) 19:30: 18:35 ONCE, 1 [place] injection 4 00 :00 dose, On Medi brandy mg [facility] Branch 12/30/20 at 1430, LOUIS NaCl 0.9% 2020- No 1000mL at 999 Uni vers (NS) bolus 12-30 mL/hr, ity of infusion 19:30: 20:38 1,000 mL, [place] as 1,000 mL 00 :00 IV Medical Piggyback, Branch ONCE, 1 dose, On Sat12/30/20 at 1430, STAT morpHINE No 4mg 4 mg, Slow Un you injection 4 12-30 IV Push, ity of mg 19:30: 18:35 ONCE, 1 [place] 00 :00 dose, On [facility] Branch 12/30/20 at 1430, STAT ondansetron 2020- No 4mg 4 mg, Slow Univers (ZOFRAN 12-30 IV Push, ity of (PF)) 19:30: 18:35 ONCE, 1 [place] injection 4 00 :00 dose, On Medi brandy mg [facility] Branch 12/30/20 at 1430, LOUIS NaCl 0.9% 2020- No 1000mL at 999 Uni vers (NS) bolus 12-30 09-17 mL/hr, ity of infusion 19:30: 20:38 1,000 mL, [place] as 1,000 mL 00 :00 IV Medical Piggyback, Branch ONCE, 1 dose, On Sat12/30/20 at 1430, STAT traZODone 2020-0 Yes 100mg Take 100 Uni vers 100 mg 9-17 mg by ity of tablet 10:15: mouth at [place] [address] bedtime. Medical Branch traZODone 2020-0 Yes 100mg Take 100 Uni vers 100 mg 9-17 mg by ity of tablet 10:15: mouth at [place] [address] bedtime. Medical Branch traZODone 2020-0 Yes 100mg Take 100 Uni vers 100 mg 9-17 mg by ity of tablet 10:15: mouth at [place] [address] bedtime. Medical Branch traZODone 2020-0 Yes 100mg Take 100 Uni vers 100 mg 9-17 mg by ity of tablet 10:15: mouth at [place] [address] bedtime. Medical Branch traZODone 2020-0 Yes 100mg Take 100 Uni vers 100 mg 9-17 mg by ity of tablet 10:15: mouth at [place] [address] bedtime. Medical Branch traZODone 2020-0 Yes 100mg Take 100 Uni vers 100 mg 9-17 mg by ity of tablet 10:15: mouth at [place] [address] bedtime. Medical Branch traZODone 2020-0 Yes 100mg Take 100 Uni vers 100 mg 9-17 mg by ity of tablet 10:15: mouth at [place] [address] bedtime. Medical Branch traZODone 2020-0 Yes 100mg Take 100 Uni vers 100 mg 9-17 mg by ity of tablet 10:15: mouth at [place] [address] bedtime. Medical Branch traZODone 2020-0 Yes 100mg Take 100 Uni vers 100 mg 9-17 mg by ity of tablet 10:15: mouth at [place] [address] bedtime. Medical Branch traZODone 2020-0 Yes 100mg Take 100 Uni vers 100 mg 9-17 mg by ity of tablet 10:15: mouth at [place] [address] bedtime. Medical Branch traZODone 2020-0 Yes 100mg Take 100 Uni vers 100 mg 9-17 mg by ity of tablet 10:15: mouth at [place] [address] bedtime. Medical Branch traZODone 2020-0 Yes 100mg Take 100 Uni vers 100 mg 9-17 mg by ity of tablet 10:15: mouth at [place] 06 bedtime. Medical Branch traZODone 2020-0 Yes 100mg Take 100 Uni vers 100 mg 9-17 mg by ity of tablet 10:15: mouth at [place] 06 bedtime. Medical Branch traZODone 2020-0 Yes 100mg Take 100 Uni vers 100 mg 9-17 mg by ity of tablet 10:15: mouth at [place] 06 bedtime. Medical Branch dicyclomine 2020-0 Yes [id number] 20mg Take 1 Univers 20 mg 9-17 tablet by ity of tablet 00:00: mouth [place] 00 every 6 Medical (six) Branch hours as needed for Abdominal pain. dicyclomine 2020-0 Yes [id number] 20mg Take 1 Univers 20 mg 9-17 tablet by ity of tablet 00:00: mouth [place] 00 every 6 Medical (six) Branch hours as needed for Abdominal pain. dicyclomine 2020-0 Yes [id number] 20mg Take 1 Univers 20 mg 9-17 tablet by ity of tablet 00:00: mouth [place] 00 every 6 Medical (six) Branch hours as needed for Abdominal pain. dicyclomine 2020-0 Yes [id number] 20mg Take 1 Univers 20 mg 9-17 tablet by ity of tablet 00:00: mouth [place] 00 every 6 Medical (six) Branch hours as needed for Abdominal pain. dicyclomine 2020-0 Yes [id number] 20mg Take 1 Univers 20 mg 9-17 tablet by ity of tablet 00:00: mouth [place] 00 every 6 Medical (six) Branch hours as needed for Abdominal pain. dicyclomine 2020-0 Yes [id number] 20mg Take 1 Univers 20 mg 9-17 tablet by ity of tablet 00:00: mouth [place] 00 every 6 Medical (six) Branch hours as needed for Abdominal pain. dicyclomine 2020-0 Yes [id number] 20mg Take 1 Univers 20 mg 9-17 tablet by ity of tablet 00:00: mouth [place] 00 every 6 Medical (six) Branch hours as needed for Abdominal pain. dicyclomine 2020-0 Yes [id number] 20mg Take 1 Univers 20 mg 9-17 tablet by ity of tablet 00:00: mouth [place] 00 every 6 Medical (six) Branch hours as needed for Abdominal pain. dicyclomine 2021-0 Yes [id number] 20mg Take 1 Univers 20 mg 9-17 tablet by ity of tablet 00:00: mouth [place] 00 every 6 Medical (six) Branch hours as needed for Abdominal pain. dicyclomine 202-0 Yes [id number] 20mg Take 1 Univers 20 mg 9-17 tablet by ity of tablet 00:00: mouth [place] 00 every 6 Medical (six) Branch hours as needed for Abdominal pain. dicyclomine 202-0 Yes [id number] 20mg Take 1 Univers 20 mg 9-17 [...] 50 (two) Medical times Branch daily. traZODone 2020-0 Yes 100mg Take 100 Uni [...] [place] 50 (two) Medical times Branch daily. cephALEXin 0 2020- No [id number] 500mg Take 1 Univers 500 mg 12-16 capsule by ity of capsule 00:00: 04:59 mouth 4 [place] 00 :00 (four) Medical times [place] daily for 7 days. cephALEXin 2020-0 2020- No [id number] 500mg Take 1 Univers 500 mg 12-16 capsule by ity of capsule 00:00: 04:59 mouth 4 [place] 00 :00 (four) Medical times [place] daily for 7 days. hydrOXYzine 0 Yes Univer s 25 mg 9- ity of tablet 00:00: [place] Medical Branch SERTraline 2020-0 Yes Univers 25 mg 9- ity of tablet 00:00: [place] Medical [facility] hydrOXYzine 2020-0 Yes Univer s 25 mg 9- ity of tablet 00:00: [place] Medical [facility] SERTraline 2020-0 Yes Univers 25 mg 9- ity of tablet 00:00: [place] Medical [facility] hydrOXYzine 2020-0 Yes Univer s 25 mg 9- ity of tablet 00:00: [place] Medical [facility] SERTraline 2020-0 Yes Univers 25 mg 9- ity of tablet 00:00: [place] Medical [facility] hydrOXYzine 2020-0 Yes Univer s 25 mg 9-01 ity of tablet 00:00: [place] [facility] SERTraline 2020-0 Yes Univers 25 mg 9-01 ity of tablet 00:00: [place] Medical [facility] hydrOXYzine 2020-0 Yes Univer s 25 mg 9-01 ity of tablet 00:00: [place] [facility] SERTraline 2020-0 Yes Univers 25 mg 9-01 ity of tablet 00:00: [place] Medical [facility] hydrOXYzine 2020-0 Yes Univer s 25 mg 9- ity of tablet 00:00: [place] Medical [facility] SERTraline 2020-0 Yes Univers 25 mg 9-01 ity of tablet 00:00: [place] [facility] hydrOXYzine 2020-0 Yes Univer s 25 mg 9-01 ity of tablet 00:00: [facility] SERTraline 0 Yes Univers 25 mg 12-14 ity of tablet 00:00: [facility] hydrOXYzine Yes Univer s 25 mg 12-14 ity of tablet 00:00: [facility] SERTraline 0 Yes Univers 25 mg 12-14 ity of tablet 00:00: [facility] hydrOXYzine Yes Univer s 25 mg 12-14 ity of tablet 00:00: [facility] SERTraline Yes Univers 25 mg 12-14 ity of tablet 00:00: [place] [facility] morpHINE 2020- No 4mg 4 mg, Slow Un you injection 4 12-06 IV Push, ity of mg 00:00: 23:00 ONCE, 1 [place] 00 :00 dose, [facility] 12/05/20 at Branch 1900, STAT dicyclomine No 20mg 20 mg, Uni vers (BENTYL) 12-06 Intramuscu ity of injection 00:00: 23:00 lar, ONCE, [place] 20 mg 00 :00 1 dose, [facility] 12/05/20 at 1900, Routine iopamidol 2020- No [id number] 120mL 120 mL, Univers (ISOVUE 12-05 Intravenou ity o f 370-500 mL) 22:30: 21:20 s, ONCE, 1 [place] injection 00 :00 dose, [facility] Medic al 120 mL 12/05/20 at Branch 1730, Routine famotidine 2020- No 20mg 20 mg, Univ ers (PEPCID 12-05 Slow IV ity of (PF)) 22:15: 22:14 Push, [place] injection 00 :00 ONCE, 1 Medical 20 mg dose, [facility] 12/05/20 at 1715, LOUIS maalox:diph 2020- No 15mL 15 mL, Uni vers enhydrAMINE 12-05 Oral, ity of :lidocaine 22:15: 22:13 ONCE, 1 [place] 2 % viscous 00 :00 dose, Mon Med ical 1:1:1 12/05/20 at [place] (FIRST-MOUT 1715, HWASH BLM) Routine oral suspension 15 mL NaCl 0.9% 2020- No 1000mL at 999 Uni vers (NS) bolus 12-05- mL/hr, ity of infusion 22:00: 23:51 1,000 mL, [place] as 1,000 mL 00 :00 IV Medical Piggyback, [place] ONCE, 1 dose, [facility] 12/05/20 at 1700, STAT ondansetron 2020- No 4mg 4 mg, Slow Univers (ZOFRAN 12-05 IV Push, ity of (PF)) 22:00: 22:13 ONCE, 1 [place] injection 4 00 :00 dose, [facility] Med ical mg 12/05/20 at [place] 1700, LOUIS morpHINE 2020- No 4mg 4 mg, Slow Un you injection 4 12-05 IV Push, ity of mg 22:00: 22:15 ONCE, 1 [place] 00 :00 dose, [facility] Medical 12/05/20 at [place] 1700, STAT ondansetron 0 Yes [id number] 4mg Take 1 Univers 4 mg 8-23 tablet by ity of disintegrat 00:00: mouth [place] ing tablet 00 every 8 Medica l (eight) Branch hours as needed for Nausea and Vomiting (N/V). ondansetron 2020-0 Yes [id number] 4mg Take 1 Univers 4 mg 8-23 tablet by ity of disintegrat 00:00: mouth [place] ing tablet 00 every 8 Medica l (eight) Branch hours as needed for Nausea and Vomiting (N/V). ondansetron 2020-0 Yes [id number] 4mg Take 1 Univers 4 mg 8-23 tablet by ity of disintegrat 00:00: mouth [place] ing tablet 00 every 8 Medica l (eight) Branch hours as needed for Nausea and Vomiting (N/V). ondansetron 2020-0 Yes [id number] 4mg Take 1 Univers 4 mg 8-23 tablet by ity of disintegrat 00:00: mouth [place] ing tablet 00 every 8 Medica l (eight) Branch hours as needed for Nausea and Vomiting (N/V). ondansetron 2020-0 Yes [id number] 4mg Take 1 Univers 4 mg 8-23 tablet by ity of disintegrat 00:00: mouth [place] ing tablet 00 every 8 Medica l (eight) Branch hours as needed for Nausea and Vomiting (N/V). ondansetron 0 Yes [id number] 4mg Take 1 Univers 4 mg 8-23 tablet by ity of disintegrat 00:00: mouth [place] ing tablet 00 every 8 Medica l (eight) Branch hours as needed for Nausea and Vomiting (N/V). ondansetron 0 Yes [id number] 4mg Take 1 Univers 4 mg 8-23 tablet by ity of disintegrat 00:00: mouth [place] ing tablet 00 every 8 Medica l (eight) Branch hours as needed for Nausea and Vomiting (N/V). ondansetron 0 Yes [id number] 4mg Take 1 Univers 4 mg 8-23 tablet by ity of disintegrat 00:00: mouth [place] ing tablet 00 every 8 Medica l (eight) Branch hours as needed for Nausea and Vomiting (N/V). ondansetron 0 Yes [id number] 4mg Take 1 Univers 4 mg 8-23 tablet by ity of disintegrat 00:00: mouth [place] ing tablet 00 every 8 Medica l (eight) Branch hours as needed for Nausea and Vomiting (N/V). ondansetron 0 Yes [id number] 4mg Take 1 Univers 4 mg 8-23 tablet by ity of disintegrat 00:00: mouth [place] ing tablet 00 every 8 Medica l (eight) Branch hours as needed for Nausea and Vomiting (N/V). ondansetron 0 Yes [id number] 4mg Take 1 Univers 4 mg 8-23 tablet by ity of disintegrat 00:00: mouth [place] ing tablet 00 every 8 Medica l (eight) Branch hours as needed for Nausea and Vomiting (N/V). ondansetron 0 Yes [id number] 4mg Take 1 Univers 4 mg 8-23 tablet by ity of disintegrat 00:00: mouth [place] ing tablet 00 every 8 Medica l (eight) Branch hours as needed for Nausea and Vomiting (N/V). ondansetron 0 Yes [id number] 4mg Take 1 Univers 4 mg 8-23 tablet by ity of disintegrat 00:00: mouth [place] ing tablet 00 every 8 Medica l (eight) Branch hours as needed for Nausea and Vomiting (N/V). ondansetron Yes [id number] 4mg Take 1 Univers 4 mg 8-23 tablet by ity of disintegrat 00:00: mouth [place] ing tablet 00 every 8 Medica l (eight) Branch hours as needed for Nausea and Vomiting (N/V). ondansetron Yes [id number] 4mg Take 1 Univers 4 mg 8-23 tablet by ity of disintegrat 00:00: mouth [place] ing tablet 00 every 8 Medica l (eight) Branch hours as needed for Nausea and Vomiting (N/V). ondansetron Yes [id number] 4mg Take 1 Univers 4 mg 8-23 tablet by ity of disintegrat 00:00: mouth [place] ing tablet 00 every 8 Medica l (eight) Branch hours as needed for Nausea and Vomiting (N/V). ondansetron Yes [id number] 4mg Take 1 Univers 4 mg 8-23 tablet by ity of disintegrat 00:00: mouth [place] ing tablet 00 every 8 Medica l (eight) Branch hours as needed for Nausea and Vomiting (N/V). ondansetron Yes [id number] 4mg Take 1 Univers 4 mg 8-23 tablet by ity of disintegrat 00:00: mouth [place] ing tablet 00 every 8 Medica l (eight) Branch hours as needed for Nausea and Vomiting (N/V). dicyclomine 2020- No [id number] 20mg Take 1 Univers 20 mg 8-23 -31 tablet by ity of tablet 00:00: 04:59 [...] by ity of tablet 01:44: mouth at [place] 06 bedtime. Medical Branch losartan 0 Yes 100mg Take 100 Univ ers 100 mg 7-01 mg by ity of tablet 01:44: mouth [place] 06 daily. Medical Branch gabapentin 0 Yes 300mg Take 300 Un you 300 mg 7-01 mg by ity of capsule 01:44: mouth 2 [place] (two) Medical times [place] daily. traZODone 0 Yes 100mg Take 100 Uni vers 100 mg 7-01 mg by ity of tablet 01:44: mouth at [place] 06 bedtime. Medical Branch losartan 0 Yes 100mg Take 100 Univ ers 100 mg 7-01 mg by ity of tablet 01:44: mouth [place] 06 daily. Medical Branch gabapentin Yes 300mg Take 300 Un you 300 mg 7-01 mg by ity of capsule 01:44: mouth 2 [place] (two) Medical times [place] daily. HYDROcodone Yes 1{tbl} 1 tablet, Univers -acetaminop 7 Oral, BID, it y of hen (NORCO 01:00: First dose [place] 5) 5-325 mg 00 on Sat Medica l tablet 1 10/12/20 at [facility] h tablet 1999, Until Discontinu ed, Routine proMETHazin 2020- No 25mg 25 mg, Uni vers e 10-12 Oral, ity of (PHENERGAN) 17:45: 20:05 ONCE, 1 [place] tablet 25 00 :00 dose, Sat Medic al mg 10/12/20 at Branch 1245, Routine tiZANidine 2020- No 4mg 4 mg, Unive rs (ZANAFLEX) 10-1230 Oral, ity of tablet 4 mg 17:45: 20:05 ONCE, 1 [place] 00 :00 dose, [facility] Medical 10/12/20 at Branch 1245, Routine lipase-prot Yes 3{capsu 3 capsule, Univers ease-amylas 10-12 le} Oral, TID ity of e (CREON) 17:00: MEALS, [place] 12,000-38,0 00 First dose Me dical 00 -60,000 on [facility] Branch unit 10/12/20 at capsule 3 1200, capsule Until Discontinu ed, Routine losartan Yes 100mg 100 mg, Unive rs (COZAAR) 6-30 Oral, ity of tablet 100 14:00: DAILY, [place] mg 00 First dose Medical on [facility] 10/12/20 at 0900, Until Discontinu ed, Routine ursodioL Yes 250mg 250 mg, Unive rs (EUGENE) 6-30 Oral, BID, ity of tablet 250 13:00: First dose [place] mg 00 on [facility] 10/12/20 at Branch 0800, Until Discontinu ed, Routine heparin Yes 5000U 5,000 Univers (porcine) 6-30 Units, ity of injection 13:00: Subcut[place]o [place] 5,000 Units 00 us, Q12H, Med ical First dose on Sat10/12/20 at 0800, Until Discontinu ed, Routine traZODone Yes 100mg 100 mg, Univ ers (DESYREL) 6-30 Oral, QHS, ity of tablet 100 03:00: First dose [place] mg 00 on [facility] 10/11/20 at Branch 2200, Until Discontinu ed, Routine gabapentin Yes 300mg 300 mg, Uni vers (NEURONTIN) 6-30 Oral, BID, it y of capsule 300 03:00: First dose [place] mg 00 on [facility] 10/11/20 at Branch 2200, Until Discontinu ed, Routine ondansetron Yes 4mg 4 mg, Slow Univers (ZOFRAN 6-30 IV Push, ity of (PF)) 02:52: Q6HPRN, [place] injection 4 29 Starting Medi brandy mg [facility] 10/11/20 at 2152, Until Discontinu ed, Routine, Nausea and Vomiting (N/V) HYDROcodone 2020- No 1{tbl} 1 tablet, Univers -acetaminop 6-30 06-30 Oral, ity of hen (NORCO) 02:52: 15:44 Q6HPRN, [place] 10-325 mg 25 :37 Starting Medica l tablet 1 [facility] tablet 10/11/20 at 2152, Until Sat10/12/20 at 1044, Routine, Pain (scale 7-10) HYDROcodone 2020- No 1{tbl} 1 tablet, Univers -acetaminop 630 07-02 Oral, ity of hen (NORCO 02:51: 02:50 Q6HPRN, [place] 5) 5-325 mg 18 :18 Starting Medi brandy tablet 1 [facility] tablet 10/11/20 at 2151, Until [place] 10/13/20 at 2150, Routine, Pain (scale 4-6) ibuprofen Yes 200mg 200 mg, Univ ers (MOTRIN IB) 630 Oral, ity of tablet 200 02:51: Q6HPRN, [place] mg 13 Starting Medical [facility] 10/11/20 at 2151, Until Discontinu ed, Routine, Pain (scale 1-3) morpHINE No 4mg 4 mg, Slow Un you injection 4 10-12 06-30 IV Push, ity of mg 01:15: 00:14 ONCE, 1 [place] 00 :00 dose, [facility] 10/11/20 at Branch 2014, STAT fenofibrate Yes [id number] 145mg Take 1 Univers 145 mg 6-30 tablet by ity of tablet 00:00: mouth [place] 00 daily. Medical Branch lipase-prot 2020-0 Yes [id number] 3{capsu Take 3 Univers ease-amylas 6-30 le} capsules ity of e 00:00: by mouth 3 [place] 12,000-38,0 00 (three) Medic al 00 -60,000 times Branch unit daily with capsule meals. ursodioL 2020-0 Yes [id number] 250mg Take 1 Un you 250 mg 6-30 tablet by ity of tablet 00:00: mouth 2 [place] 00 (two) Medical times Branch daily. fenofibrate 2020-0 Yes [id number] 145mg Take 1 Univers 145 mg 6-30 tablet by ity of tablet 00:00: mouth [place] 00 daily. Medical Branch lipase-prot 2020-0 Yes [id number] 3{capsu Take 3 Univers ease-amylas 6-30 le} capsules ity of e 00:00: by mouth 3 [place] 12,000-38,0 00 (three) Medic al 00 -60,000 times Branch unit daily with capsule meals. ursodioL 2020-0 Yes [id number] 250mg Take 1 Un you 250 mg 6-30 tablet by ity of tablet 00:00: mouth 2 [place] 00 (two) Medical times Branch daily. fenofibrate 2020-0 Yes [id number] 145mg Take 1 Univers 145 mg 6-30 tablet by ity of tablet 00:00: mouth [place] 00 daily. Medical Branch lipase-prot 2020-0 Yes [id number] 3{capsu Take 3 Univers ease-amylas 6-30 le} capsules ity of e 00:00: by mouth 3 [place] 12,000-38,0 00 (three) Medic al 00 -60,000 times Branch unit daily with capsule meals. ursodioL 2020-0 Yes [id number] 250mg Take 1 Un you 250 mg 6-30 tablet by ity of tablet 00:00: mouth 2 00 (two) Medical times Branch daily. fenofibrate 2020-0 Yes [id number] 145mg Take 1 Univers 145 mg 6-30 tablet by ity of tablet 00:00: mouth [place] 00 daily. Medical Branch lipase-prot 2020-0 Yes [id number] 3{capsu Take 3 Univers ease-amylas 6-30 le} capsules ity of e 00:00: by mouth 3 [place] 12,000-38,0 00 (three) Medic al 00 -60,000 times Branch unit daily with capsule meals. ursodioL 2020-0 Yes [id number] 250mg Take 1 Un you 250 mg 6-30 tablet by ity of tablet 00:00: mouth 2 (two) Medical times Branch daily. fenofibrate 2020-0 Yes [id number] 145mg Take 1 Univers 145 mg 6-30 tablet by ity of tablet 00:00: mouth 00 daily. Medical Branch lipase-prot 2020-0 Yes [id number] 3{capsu Take 3 Univers ease-amylas 6-30 le} capsules ity of e 00:00: by mouth 3 [place] 12,000-38,0 00 (three) Medic al 00 -60,000 times Branch unit daily with capsule meals. ursodioL 2020-0 Yes [id number] 250mg Take 1 Un you 250 mg 6-30 tablet by ity of tablet 00:00: mouth 2 00 (two) Medical times Branch daily. fenofibrate 2020-0 Yes [id number] 145mg Take 1 Univers 145 mg 6-30 tablet by ity of tablet 00:00: mouth [place] 00 daily. Medical Branch lipase-prot 2020-0 Yes [id number] 3{capsu Take 3 Univers ease-amylas 6-30 le} capsules ity of e 00:00: by mouth 3 [place] 12,000-38,0 00 (three) Medic al 00 -60,000 times Branch unit daily with capsule meals. ursodioL 2020-0 Yes [id number] 250mg Take 1 Un you 250 mg 6-30 tablet by ity of tablet 00:00: mouth 2 00 (two) Medical times Branch daily. fenofibrate 2020-0 Yes [id number] 145mg Take 1 Univers 145 mg 6-30 tablet by ity of tablet 00:00: mouth [place] 00 daily. Medical Branch lipase-prot 2020- Yes [id number] 3{capsu Take 3 Univers ease-amylas 6-30 le} capsules ity of e 00:00: by mouth 3 [place] 12,000-38,0 00 (three) Medic al 00 -60,000 times Branch unit daily with capsule meals. ursodioL 2020-0 Yes [id number] 250mg Take 1 Un you 250 mg 6-30 tablet by ity of tablet 00:00: mouth 2 00 (two) Medical times Branch daily. fenofibrate 2020-0 Yes [id number] 145mg Take 1 Univers 145 mg 6-30 tablet by ity of tablet 00:00: mouth 00 daily. Medical Branch lipase-prot 2020-0 Yes [id number] 3{capsu Take 3 Univers ease-amylas 6-30 le} capsules ity of e 00:00: by mouth 3 [place] 12,000-38,0 00 (three) Medic al 00 -60,000 times Branch unit daily with capsule meals. ursodioL 2020-0 Yes [id number] 250mg Take 1 Un you 250 mg 6-30 tablet by ity of tablet 00:00: mouth 2 00 (two) Medical times Branch daily. fenofibrate 2020-0 Yes [id number] 145mg Take 1 Univers 145 mg 6-30 tablet by ity of tablet 00:00: mouth [place] 00 daily. Medical Branch lipase-prot 2020-0 Yes [id number] 3{capsu Take 3 Univers ease-amylas 6-30 le} capsules ity of e 00:00: by mouth 3 [place] 12,000-38,0 00 (three) Medic al 00 -60,000 times Branch unit daily with capsule meals. ursodioL 202-0 Yes [id number] 250mg Take 1 Un you 250 mg 6-30 tablet by ity of tablet 00:00: mouth 2 (two) Medical times Branch daily. fenofibrate 2020-0 Yes [id number] 145mg Take 1 Univers 145 mg 6-30 tablet by ity of tablet 00:00: mouth 00 daily. Medical Branch lipase-prot 2020-0 Yes [id number] 3{capsu Take 3 Univers ease-amylas 6-30 le} capsules ity of e 00:00: by mouth 3 [place] 12,000-38,0 00 (three) Medic al 00 -60,000 times Branch unit daily with capsule meals. ursodioL 2020-0 Yes [id number] 250mg Take 1 Un you 250 mg 6-30 tablet by ity of tablet 00:00: mouth 2 (two) Medical times Branch daily. fenofibrate 2020-0 Yes [id number] 145mg Take 1 Univers 145 mg 6-30 tablet by ity of tablet 00:00: mouth 00 daily. Medical Branch lipase-prot 2020-0 Yes [id number] 3{capsu Take 3 Univers ease-amylas 6-30 le} capsules ity of e 00:00: by mouth 3 [place] 12,000-38,0 00 (three) Medic al 00 -60,000 times Branch unit daily with capsule meals. ursodioL 2020-0 Yes [id number] 250mg Take 1 Un you 250 mg 6-30 tablet by ity of tablet 00:00: mouth 2 (two) Medical times Branch daily. fenofibrate 2020-0 Yes [id number] 145mg Take 1 Univers 145 mg 6-30 tablet by ity of tablet 00:00: mouth [place] 00 daily. Medical Branch lipase-prot 2020-0 Yes [id number] 3{capsu Take 3 Univers ease-amylas 6-30 le} capsules ity of e 00:00: by mouth 3 [place] 12,000-38,0 00 (three) Medic al 00 -60,000 times Branch unit daily with capsule meals. ursodioL 2020-0 Yes [id number] 250mg Take 1 Un you 250 mg 6-30 tablet by ity of tablet 00:00: mouth 2 00 (two) Medical times Branch daily. fenofibrate 2020-0 Yes [id number] 145mg Take 1 Univers 145 mg 6-30 tablet by ity of tablet 00:00: mouth [place] 00 daily. Medical Branch lipase-prot 2020-0 Yes [id number] 3{capsu Take 3 Univers ease-amylas 6-30 le} capsules ity of e 00:00: by mouth 3 [place] 12,000-38,0 00 (three) Medic al 00 -60,000 times Branch unit daily with capsule meals. ursodioL 2020-0 Yes [id number] 250mg Take 1 Un you 250 mg 6-30 tablet by ity of tablet 00:00: mouth 2 00 (two) Medical times Branch daily. fenofibrate 2020-0 Yes [id number] 145mg Take 1 [facility] 145 mg 6-30 tablet by ity of tablet 00:00: mouth [place] 00 daily. Medical Branch lipase-prot 2020-0 Yes [id number] 3{capsu Take 3 [facility] ease-amylas 6-30 le} capsules ity of e 00:00: by mouth 3 [place] 12,000-38,0 00 (three) Medic al 00 -60,000 times Branch unit daily with capsule meals. ursodioL 2020-0 Yes [id number] 250mg Take 1 Un you 250 mg 6-30 tablet by ity of tablet 00:00: mouth 2 (two) Medical times Branch daily. fenofibrate 2020-0 Yes [id number] 145mg Take 1 [facility] 145 mg 6-30 tablet by ity of tablet 00:00: mouth [place] 00 daily. Medical Branch lipase-prot 2020-0 Yes [id number] 3{capsu Take 3 [facility] ease-amylas 6-30 le} capsules ity of e 00:00: by mouth 3 [place] 12,000-38,0 00 (three) Medic al 00 -60,000 times Branch unit daily with capsule meals. ursodioL 2020-0 Yes [id number] 250mg Take 1 Un you 250 mg 6-30 tablet by ity of tablet 00:00: mouth 2 [place] 00 (two) Medical times Branch daily. fenofibrate 2020-0 Yes [id number] 145mg Take 1 [facility] 145 mg 6-30 tablet by ity of tablet 00:00: mouth [place] 00 daily. Medical Branch lipase-prot 2020-0 Yes [id number] 3{capsu Take 3 [facility] ease-amylas 6-30 le} capsules ity of e 00:00: by mouth 3 [place] 12,000-38,0 00 (three) Medic al 00 -60,000 times Branch unit daily with capsule meals. ursodioL 2020-0 Yes [id number] 250mg Take 1 Un you 250 mg 6-30 tablet by ity of tablet 00:00: mouth 2 [place] 00 (two) Medical times Branch daily. fenofibrate 2020-0 Yes [id number] 145mg Take 1 [facility] 145 mg 6-30 tablet by ity of tablet 00:00: mouth [place] 00 daily. Medical Branch lipase-prot 2020-0 Yes [id number] 3{capsu Take 3 [facility] ease-amylas 6-30 le} capsules ity of e 00:00: by mouth 3 [place] 12,000-38,0 00 (three) Medic al 00 -60,000 times Branch unit daily with capsule meals. ursodioL 2020-0 Yes [id number] 250mg Take 1 Un you 250 mg 6-30 tablet by ity of tablet 00:00: mouth 2 00 (two) Medical times Branch daily. fenofibrate 2020-0 Yes [id number] 145mg Take 1 [facility] 145 mg 6-30 tablet by ity of tablet 00:00: mouth [place] 00 daily. Medical Branch lipase-prot 2020-0 Yes [id number] 3{capsu Take 3 [facility] ease-amylas 6-30 le} capsules ity of e 00:00: by mouth 3 [place] 12,000-38,0 00 (three) Medic al 00 -60,000 times Branch unit daily with capsule meals. ursodioL 2020-0 Yes [id number] 250mg Take 1 Un you 250 mg 6-30 tablet by ity of tablet 00:00: mouth 2 00 (two) Medical times Branch daily. fenofibrate 2020-0 Yes [id number] 145mg Take 1 [facility] 145 mg 6-30 tablet by ity of tablet 00:00: mouth [place] 00 daily. Medical Branch lipase-prot 2020-0 Yes [id number] 3{capsu Take 3 [facility] ease-amylas 6-30 le} capsules ity of e 00:00: by mouth 3 [place] 12,000-38,0 00 (three) Medic al 00 -60,000 times Branch unit daily with capsule meals. ursodioL Yes [id number] 250mg Take 1 Un you 250 mg 6-30 tablet by ity of tablet 00:00: mouth 2 [place] 00 (two) Medical times [place] daily. morpHINE 2020- No 6mg 6 mg, Slow Un you injection 6 10-11 IV Push, ity of mg 22:15: 21:09 ONCE, 1 00 :00 dose, [facility] 10/11/20 at Branch 1715, STAT FENTanyl PF 2020- No 100ug 100 mcg, Univers (SUBLIMAZE 10-11 Slow IV ity o f (PF)) 20:00: 18:53 Push, [place] injection 00 :00 ONCE, 1 Medical 100 mcg dose, [facility] 10/11/20 at 1500, Routine ondansetron 2020- No 4mg 4 mg, Slow Univers (ZOFRAN 10-11 IV Push, ity of (PF)) 20:00: 18:54 ONCE, 1 [place] injection 4 00 :00 dose, [facility] Med ical mg 10/11/20 at Branch 1500, [place] morpHINE 2020- No 6mg 6 mg, Slow Un you injection 6 10-11 IV Push, ity of mg 16:45: 15:42 ONCE, 1 [place] 00 :00 dose, [facility] 10/11/20 at Branch 1145, STAT FENTanyl PF 2020- No 100ug 100 mcg, Univers (SUBLIMAZE 10-11 Slow IV ity o f (PF)) 16:15: 15:06 Push, [place] injection 00 :00 ONCE, 1 Medical 100 mcg dose, [facility] 10/11/20 at 1115, Routine metoclopram 2020- No 10mg 10 mg, Uni vers selena HCl 10-11 Slow IV ity of (REGLAN) 16:15: 15:06 Push, [place] injection 00 :00 ONCE, 1 Medical 10 mg dose, [facility] 10/11/20 at 1115, [place] morpHINE 2020- No 4mg 4 mg, Slow Un you injection 4 10-05 IV Push, ity of mg 01:15: 00:15 ONCE, 1 [place] 00 :00 dose, Tue Medical 10/04/20 at Branch 2015, STAT ondansetron 2020- No 4mg 4 mg, Slow [facility] (ZOFRAN 10-05 IV Push, ity of (PF)) 00:00: 23:22 ONCE, 1 [place] injection 4 00 :00 dose, Tue Med ical mg 10/04/20 at Branch 1900, [place] FENTanyl PF 2020- No 50ug 50 mcg, Un you (SUBLIMAZE 10-05 Slow IV ity o f (PF)) 00:00: 23:22 Push, [place] injection 00 :00 ONCE, 1 Medical 50 mcg dose, [facility] Branch 10/04/20 at 1900, STAT NaCl 0.9% 2020- No 1000mL at 999 Uni vers (NS) bolus 10-04 mL/hr, ity of infusion 23:00: 01:20 1,000 mL, [place] 1,000 mL 00 :00 IV Medical Infusion, Branch ONCE, 1 dose, [facility] 10/04/20 at 1800, [place] promethazin Yes [id number] 50mg Insert 1 [facility] e 50 mg 6-22 Suppositor ity of suppository 00:00: y [place] 00 rectum Medical every 6 Branch (six) hours as needed for Nausea and Vomiting (N/V). ondansetron Yes [id number] 4mg Take 1 [facility] (ZOFRAN 6-22 tablet by ity of ODT) 4 mg 00:00: mouth [place] disintegrat 00 every 8 Medic al ing tablet (eight) Branch hours as needed for Nausea and Vomiting (N/V). promethazin 0 Yes [id number] 50mg Insert 1 [facility] e 50 mg 6-22 Suppositor ity of suppository 00:00: y into [place] 00 rectum Medical every 6 Branch (six) hours as needed for Nausea and Vomiting (N/V). promethazin 0 Yes [id number] 50mg Insert 1 [facility] e 50 mg 6-22 Suppositor ity of suppository 00:00: y into [place] 00 rectum Medical every 6 Branch (six) hours as needed for Nausea and Vomiting (N/V). promethazin Yes [id number] 50mg Insert 1 [facility] e 50 mg 6-22 Suppositor ity of suppository 00:00: y into [place] 00 rectum Medical every 6 Branch (six) hours as needed for Nausea and Vomiting (N/V). promethazin Yes [id number] 50mg Insert 1 [facility] e 50 mg 6-22 Suppositor ity of suppository 00:00: y into [place] 00 rectum Medical every 6 Branch (six) hours as needed for Nausea and Vomiting (N/V). promethazin Yes [id number] 50mg Insert 1 [facility] e 50 mg 6-22 Suppositor ity of suppository 00:00: y into [place] 00 rectum Medical every 6 Branch (six) hours as needed for Nausea and Vomiting (N/V). promethazin Yes [id number] 50mg Insert 1 [facility] e 50 mg 6-22 Suppositor ity of suppository 00:00: y into [place] 00 rectum Medical every 6 Branch (six) hours as needed for Nausea and Vomiting (N/V). promethazin Yes [id number] 50mg Insert 1 [facility] e 50 mg 6-22 Suppositor ity of suppository 00:00: y into [place] 00 rectum Medical every 6 Branch (six) hours as needed for Nausea and Vomiting (N/V). promethazin Yes [id number] 50mg Insert 1 [facility] e 50 mg 6-22 Suppositor ity of suppository 00:00: y into [place] 00 rectum Medical every 6 Branch (six) hours as needed for Nausea and Vomiting (N/V). promethazin Yes [id number] 50mg Insert 1 [facility] e 50 mg 6-22 Suppositor ity of suppository 00:00: y into [place] 00 rectum Medical every 6 Branch (six) hours as needed for Nausea and Vomiting (N/V). promethazin Yes [id number] 50mg Insert 1 [facility] e 50 mg 6-22 Suppositor ity of suppository 00:00: y into [place] 00 rectum Medical every 6 Branch (six) hours as needed for Nausea and Vomiting (N/V). promethazin Yes [id number] 50mg Insert 1 [facility] e 50 mg 6-22 Suppositor ity of suppository 00:00: y into [place] 00 rectum Medical every 6 Branch (six) hours as needed for Nausea and Vomiting (N/V). promethazin Yes [id number] 50mg Insert 1 [facility] e 50 mg 6-22 Suppositor ity of suppository 00:00: y into [place] 00 rectum Medical every 6 Branch (six) hours as needed for Nausea and Vomiting (N/V). promethazin Yes [id number] 50mg Insert 1 [facility] e 50 mg 6-22 Suppositor ity of suppository 00:00: y into [place] 00 rectum Medical every 6 Branch (six) hours as needed for Nausea and Vomiting (N/V). promethazin Yes [id number] 50mg Insert 1 [facility] e 50 mg 6-22 Suppositor ity of suppository 00:00: y into [place] 00 rectum Medical every 6 Branch (six) hours as needed for Nausea and Vomiting (N/V). promethazin Yes [id number] 50mg Insert 1 [facility] e 50 mg 6-22 Suppositor ity of suppository 00:00: y into [place] 00 rectum Medical every 6 Branch (six) hours as needed for Nausea and Vomiting (N/V). promethazin Yes [id number] 50mg Insert 1 [facility] e 50 mg 6-22 Suppositor ity of suppository 00:00: y into [place] 00 rectum Medical every 6 Branch (six) hours as needed for Nausea and Vomiting (N/V). promethazin Yes [id number] 50mg Insert 1 [facility] e 50 mg 6-22 Suppositor ity of suppository 00:00: y into [place] 00 rectum Medical every 6 Branch (six) hours as needed for Nausea and Vomiting (N/V). promethazin Yes [id number] 50mg Insert 1 [facility] e 50 mg 6-22 Suppositor ity of suppository 00:00: y into [place] 00 rectum Medical every 6 Branch (six) hours as needed for Nausea and Vomiting (N/V). promethazin Yes [id number] 50mg Insert 1 [facility] e 50 mg 6-22 Suppositor ity of suppository 00:00: y into [place] 00 rectum Medical every 6 Branch (six) hours as needed for Nausea and Vomiting (N/V). ondansetron 2020- No [id number] 4mg Take 1 [facility] (ZOFRAN 6- 06-30 tablet by ity of ODT) 4 [...] Fri Med ical ing tablet 08/05/20 at [facility] 4 mg 0930, Routine traZODone Yes 100mg Take 100 Uni vers 100 mg 4-05 mg by ity of tablet 13:30: mouth at [place] [address] bedtime. Medical Branch traZODone Yes 100mg Take 100 Uni vers 100 mg 4-05 mg by ity of tablet 13:30: mouth at [place] [address] bedtime. Medical Branch traZODone Yes 100mg Take 100 Uni vers 100 mg 4-05 mg by ity of tablet 13:30: mouth at [place] [address] bedtime. Medical Branch triamcinolo Yes PRN, [facility] ne 07-18 Starting ity of acetonide 12:07: [place]/18/[place] (KENALOG[place] 00 at 0707, Medica l injection Until Branch Discontinu ed, Routine, Intra-op iohexoL Yes PRN, Univers (OMNIPAQUE 4-05 Starting ity o f 300-50 mL)) 12:07: 07/18/20 [place] injection 00 at 0707, Medica l Until Branch Discontinu ed, Routine, Intra-op lidocaine Yes PRN, Univers 1% 05 Starting ity of (XYLOCAINE) 12:07: Sat07/18/20 [place] 10 mg/mL (1 00 at 0707, Medi brandy %) Until Branch injection Discontinu ed, Routine, Intra-op triamcinolo 2020- No PRN, [facility] [place] [facility] 07-18 Starting ity of acetonide 12:07: 15:30 [facility] 07/18/20 [place] (KENALOG) 00 :22 at 07, Medica l injection Until [facility] 07/18/20 at 1030, Routine, Intra-op iohexoL 2020- No PRN, Univers (OMNIPAQUE 05 -05 Starting ity of 300-50 mL)) 12:07: 15:30 [facility] 07/18/20 [place] injection 00 :22 at 0707, Medica l Until [facility] Branch 07/18/20 at 1030, Routine, Intra-op lidocaine 2020- No PRN, Univers 1% 07-18 Starting ity of (XYLOCAINE) 12:07: 15:30 [facility] 07/18/20 [place] 10 mg/mL (1 00 :22 at 0707, Medi brandy %) Until Mon Branch injection 07/18/20 at 1030, Routine, Intra-op escitalopra 2020- No 20mg Take 20 mg Univers m oxalate 07-18 by mouth ity o f (LEXAPRO) 11:43: 00:00 at [place] 20 mg 22 :00 bedtime. Medical tablet Branch divalproex 2020-2020- No 500mg Take 500 U nivers (DEPAKOTE) 4-05 04-05 mg by ity of 500 mg EC 11:43: 00:00 mouth [place] tablet 22 :00 daily. Medical Branch chlordiazeP 2020-2020- No 10mg Take 10 mg [facility] OXIDE 10 mg 4-05 04-05 by mouth 3 i ty of capsule 11:: 00:00 (three) [place] 22 :00 times Medical [...] 22 :00 bedtime. Medical tablet Branch divalproex 2020- No 500mg Take 500 U nivers (DEPAKOTE) 4-05 04-05 mg by ity of 500 mg EC 11:43: 00:00 mouth [place] tablet 22 :00 daily. Medical Branch chlordiazeP 2020- No 10mg Take 10 mg [facility] OXIDE 10 mg 4-05 04-05 by mouth 3 i ty of capsule 11:: 00:00 (three) [place] 22 :00 times Medical [...] mouth ity of tablet 11:42: 00:00 daily. [place] 27 :00 Medical Branch carvediloL 2020- No [...] Yes 100mg 100 mg, Unive rs (COZAAR) - Oral, ity of tablet 100 14:00: DAILY, [place] mg 00 First dose Medical on Fri Branch 07/08/20 at 0900, Until Discontinu ed, Routine ondansetron 2020- No 4mg 4 mg, Slow Univers (ZOFRAN 07-08-26 IV Push, ity of (PF)) 03:15: 02:29 ONCE, 1 [place] injection 4 00 :00 dose, [place] Med ical mg 07/07/20 at Branch 2215, [place] morpHINE 2020-0 2020- No 4mg 4 mg, Slow Un you injection 4 07-08 IV Push, ity of mg 03:15: 02:28 ONCE, 1 [place] 00 :00 dose, [facility] 07/07/20 at Branch 2215, STAT morpHINE 2020-0 2020- No 4mg 4 mg, Slow Un you injection 4 07-08 IV Push, ity of mg 01:45: 01:05 ONCE, 1 [place] 00 :00 dose, [facility] 07/07/20 at Branch 204, STAT iohexol 2020-0 2020- No [id number] 120mL 120 mL, Univers (OMNIPAQUE 07-08 Intravenou it y of 350 01:00: 00:55 s, ONCE, 1 [place] BULK-150 00 :00 dose, [place] Medica l mL) 07/07/20 at Branch injection 1999, 120 mL Routine NaCl 0.9% 2020- No 1000mL at 999 Uni vers (NS) bolus 07-08 mL/hr, ity of infusion 01:00: 02:24 1,000 mL, [place] as 1,000 mL 00 :00 IV Medical Infusion, [place] ONCE, 1 dose, [facility] 07/07/20 at 1999, STAT ondansetron 2020-0 2020- No 4mg 4 mg, Slow Univers (ZOFRAN 07-08 IV Push, ity of (PF)) 01:00: 00:25 ONCE, 1 [place] injection 4 00 :00 dose, [place] Med ical mg 07/07/20 at Branch 1999, [place] ondansetron 2020-0 Yes [id number] 4mg Take 1 [facility] (ZOFRAN 3-25 tablet by ity of ODT) 4 mg 00:00: mouth [place] disintegrat 00 every 8 Medic al ing tablet (eight) Branch hours as needed for Nausea and Vomiting (N/V). ondansetron 2020-0 Yes [id number] 4mg Take 1 [facility] (ZOFRAN 3-25 tablet by ity of ODT) 4 mg 00:00: mouth [place] disintegrat 00 every 8 Medic al ing tablet (eight) Branch hours as needed for Nausea and Vomiting (N/V). ondansetron 2021-0 Yes [id number] 4mg Take 1 [facility] (ZOFRAN 3-25 tablet by ity of ODT) 4 mg 00:00: mouth [place] disintegrat 00 every 8 Medic al ing tablet (eight) Branch hours as needed for Nausea and Vomiting (N/V). ondansetron 2021-0 Yes [id number] 4mg Take 1 [facility] (ZOFRAN 3-25 tablet by ity of ODT) 4 mg 00:00: mouth [place] disintegrat 00 every 8 Medic al ing tablet (eight) Branch hours as needed for Nausea and Vomiting (N/V). ondansetron 2021-0 Yes [id number] 4mg Take 1 [facility] (ZOFRAN 3-25 tablet by ity of ODT) 4 mg 00:00: mouth [place] disintegrat 00 every 8 Medic al ing tablet (eight) Branch hours as needed for Nausea and Vomiting (N/V). ondansetron 2021-0 Yes [id number] 4mg Take 1 [facility] (ZOFRAN 3-25 tablet by ity of ODT) 4 mg 00:00: mouth [place] disintegrat 00 every 8 Medic al ing tablet (eight) Branch hours as needed for Nausea and Vomiting (N/V). ondansetron 2021-0 Yes [id number] 4mg Take 1 [facility] (ZOFRAN 3-25 tablet by ity of ODT) 4 mg 00:00: mouth [place] disintegrat 00 every 8 Medic al ing tablet (eight) Branch hours as needed for Nausea and Vomiting (N/V). ondansetron 2021-0 Yes [id number] 4mg Take 1 [facility] (ZOFRAN 3-25 tablet by ity of ODT) 4 mg 00:00: mouth [place] disintegrat 00 every 8 Medic al ing tablet (eight) Branch hours as needed for Nausea and Vomiting (N/V). ondansetron 2021-0 Yes [id number] 4mg Take 1 [facility] (ZOFRAN 3-25 tablet by ity of ODT) 4 mg 00:00: mouth [place] disintegrat 00 every 8 Medic al ing tablet (eight) Branch hours as needed for Nausea and Vomiting (N/V). ondansetron 2021-0 Yes [id number] 4mg Take 1 [facility] (ZOFRAN 3-25 tablet by ity of ODT) 4 mg 00:00: mouth [place] disintegrat 00 every 8 Medic al ing tablet (eight) Branch hours as needed for Nausea and Vomiting (N/V). ondansetron 2021-0 Yes [id number] 4mg Take 1 [facility] (ZOFRAN 3-25 tablet by ity of ODT) 4 mg 00:00: mouth [place] disintegrat 00 every 8 Medic al ing tablet (eight) Branch hours as needed for Nausea and Vomiting (N/V). ondansetron 2021-0 Yes [id number] 4mg Take 1 [facility] (ZOFRAN 3-25 tablet by ity of ODT) 4 mg 00:00: mouth [place] disintegrat 00 every 8 Medic al ing tablet (eight) Branch hours as needed for Nausea and Vomiting (N/V). ondansetron 2021-0 Yes [id number] 4mg Take 1 [facility] (ZOFRAN 3-25 tablet by ity of ODT) 4 mg 00:00: mouth [place] disintegrat 00 every 8 Medic al ing tablet (eight) Branch hours as needed for Nausea and Vomiting (N/V). ondansetron 2021-0 Yes [id number] 4mg Take 1 [facility] (ZOFRAN 3-25 tablet by ity of ODT) 4 mg 00:00: mouth [place] disintegrat 00 every 8 Medic al ing tablet (eight) Branch hours as needed for Nausea and Vomiting (N/V). ondansetron 2021-0 Yes [id number] 4mg Take 1 [facility] (ZOFRAN 3-25 tablet by ity of ODT) 4 mg 00:00: mouth [place] disintegrat 00 every 8 Medic al ing tablet (eight) Branch hours as needed for Nausea and Vomiting (N/V). ondansetron 2021-0 Yes [id number] 4mg Take 1 [facility] (ZOFRAN 3-25 tablet by ity of ODT) 4 mg 00:00: mouth [place] disintegrat 00 every 8 Medic al ing tablet (eight) Branch hours as needed for Nausea and Vomiting (N/V). ondansetron 2021-0 Yes [id number] 4mg Take 1 [facility] (ZOFRAN 3-25 tablet by ity of ODT) 4 mg 00:00: mouth [place] disintegrat 00 every 8 Medic al ing tablet (eight) Branch hours as needed for Nausea and Vomiting (N/V). ondansetron 2020-0 Yes [id number] 4mg Take 1 [facility] (ZOFRAN 3-25 tablet by ity of ODT) 4 mg 00:00: mouth [place] disintegrat 00 every 8 Medic al ing tablet (eight) Branch hours as needed for Nausea and Vomiting (N/V). ondansetron 2020-0 Yes [id number] 4mg Take 1 [facility] (ZOFRAN 3-25 tablet by ity of ODT) 4 mg 00:00: mouth [place] disintegrat 00 every 8 Medic al ing tablet (eight) Branch hours as needed for Nausea and Vomiting (N/V). ondansetron 2020-0 2021- No [id number] 4mg Take 1 [facility] (ZOFRAN 3-25 12-06 tablet by ity of ODT) 4 mg [...] mg 04 bedtime. Medical tablet Branch divalproex 2020-0 Yes 500mg Take 500 Un you (DEPAKOTE) 3-22 mg by ity of 500 mg EC 13:47: mouth [place] tablet 04 daily. Medical Branch tiZANidine 2020-0 Yes 4mg [...] 04 (two) Medical times Branch daily. temazepam 2020-0 Yes 15mg Take 15 mg Un you 15 mg 3-22 by mouth ity of capsule 13:47: at bedtime [place] 04 as needed Medical for Branch Insomnia. ursodioL 2020-0 Yes 500mg Take 500 Univ ers 500 mg 3-22 mg by ity of tablet 13:47: mouth 2 [place] 04 (two) Medical times Branch daily. traZODone 2020-0 Yes 100mg Take 100 Uni vers 100 mg 3-22 mg by ity of tablet 13:47: mouth at [place] [address] bedtime. Medical Branch ARIPiprazol 0 Yes 10mg Take 10 mg Univers e 10 mg 3-22 by mouth ity of tablet 13:47: daily. [place] 04 Medical Branch carvediloL 0 Yes 12.5mg [...] 04 (three) Medical times Branch daily. QUEtiapine 2020-0 Yes 400mg Take 400 Un you (SEROQUEL) 3-22 mg by ity of 400 mg 13:47: mouth at [place] tablet 04 bedtime. Medical Branch escitalopra 2020-0 Yes 20mg Take 20 mg Univers m oxalate 3-22 by mouth ity of (LEXAPRO) 13:47: at [place] 20 mg 04 bedtime. Medical tablet Branch divalproex 2020-0 Yes [...] 04 (three) Medical times Branch daily. QUEtiapine 2020-0 [...] by ity of tablet 13:47: mouth 2 04 (two) Medical times Branch daily. traZODone [...] 04 (three) Medical times Branch daily. QUEtiapine 202-0 Yes 400mg Take 400 Un you (SEROQUEL) [...] 04 (two) Medical times Branch daily. temazepam 2020-0 Yes 15mg Take 15 mg Un you 15 mg 3-22 by mouth ity of capsule 13:47: at bedtime [place] 04 as needed Medical for Branch Insomnia. ursodioL 2020-0 Yes 500mg Take 500 Univ ers 500 mg 3-22 mg by ity of tablet 13:47: mouth 2 [place] 04 (two) Medical times Branch daily. traZODone 202-0 Yes 100mg Take 100 Uni vers 100 mg 3-22 mg by ity of tablet 13:47: mouth at [place] 04 bedtime. Medical Branch ARIPiprazol 2021-0 Yes 10mg Take 10 mg Univers e 10 mg 3-22 by mouth ity of tablet 13:47: daily. [place] [address] Medical Branch carvediloL 0 Yes 12.5mg Take 12.5 Univers 12.5 mg 3-22 mg by ity of tablet 13:47: mouth 2 [place] [address] (two) Medical times Branch daily with meals. lactated 0 Yes 1000mL at 100 Unive rs ringers IV 3-22 mL/hr, ity of infusion 13:15: 1,000 mL, [place] 1,000 mL 00 IV Medical Infusion, Branch CONTINUOUS , Starting Sat07/04/20 at 0815, Until Discontinu ed, Routine, PACU FENTanyl PF 0 Yes 25ug 25 mcg, Uni vers (SUBLIMAZE 3-22 Slow IV ity of (PF)) 13:10: Push, [place] injection 11 Q5MIN PRN, Medi brandy 25 mcg 4 doses, Branch Starting Sat07/04/20 at 0810, Until Discontinu ed, Routine, Pain (scale 7-10), PACU FENTanyl PF Yes 25ug 25 mcg, Uni vers (SUBLIMAZE 3-22 Slow IV ity of (PF)) 13:10: Push, [place] injection 11 Q5MIN PRN, Medi brandy 25 mcg 4 doses, Branch Starting Sat07/04/20 at 0810, Until Discontinu ed, Routine, Pain (scale 4-6), PACU ondansetron Yes 4mg 4 mg, Slow Univers (ZOFRAN 3-22 IV Push, ity of (PF)) 13:10: PRN, 1 [place] injection 4 11 dose, Medical mg Starting Branch Sat07/04/20 at 0810, Until Discontinu ed, Routine, Nausea and Vomiting (N/V), PACU ceFAZolin Yes 1000mg 1,000 mg, U nivers (ANCEF) 3-22 IV ity of 1,000 mg in 12:00: Piggyback, [place] NaCl 0.9% 00 Q8H ABX, Medica l [...] 42 (two) Medical times Branch daily. LOSARTAN 202-0 Yes 100mg Take 100 Univ ers POTASSIUM [...] [place] tablet 42 daily. Medical Branch tiZANidine 2020-0 Yes 4mg [...] mouth [place] 42 daily. Medical Branch lithium 2020-0 Yes 300mg [...] [place] tablet 42 daily. Medical Branch tiZANidine 2020-0 Yes 4mg [...] mouth [place] 42 daily. Medical Branch lithium 2020-0 Yes 300mg [...] 42 (two) Medical times Branch daily. LOSARTAN 202-0 Yes 100mg Take 100 Univ ers POTASSIUM [...] [place] tablet 42 daily. Medical Branch tiZANidine 2020-0 Yes 4mg Take 4 mg Un you 4 mg 3-08 by mouth 2 ity of capsule 16:25: (two) [place] 42 times Medical daily. Branch chlordiazeP 2020-0 Yes 10mg Take 10 mg Univers OXIDE 10 mg 3-08 by mouth 3 it y of capsule 16:25: (three) [place] 42 times Medical daily. Branch meloxicam 0 Yes 7.5mg Take 7.5 Uni vers 7.5 mg 3-08 mg by ity of tablet 16:25: mouth [place] 42 daily. Medical Branch lithium 2020-0 Yes 300mg Take 300 Unive rs carbonate 3-08 mg by ity of 300 mg 16:25: mouth 2 [place] capsule 42 (two) Medical times Branch daily. temazepam 2020-0 Yes 15mg Take 15 mg Un you 15 mg 3-08 by mouth ity of capsule 16:25: at bedtime [facility] 42 as needed Medical for Branch Insomnia. ursodioL 2020-0 Yes 500mg Take 500 Univ ers 500 mg 3-08 mg by ity of tablet 16:25: mouth 2 [place] 42 (two) Medical times Branch daily. ondansetron 2020-0 Yes 4mg 4 mg, Slow Univers (ZOFRAN 3-08 IV Push, ity of (PF)) 16:19: PRN, 1 [place] injection 4 59 dose, Medical mg Starting Branch 06/20/20 at 1019, Until Discontinu ed, Routine, Nausea and Vomiting (N/V), PACU triamcinolo 0 Yes PRN, Univer s ne 3-08 Starting ity of acetonide 14:10: Sat06/20/20 [place] (KENALOG) 00 at 0810, Medica l injection Until Branch Discontinu ed, Routine, Intra-op iohexoL Yes PRN, Univers (OMNIPAQUE 3-08 Starting ity o f 300-50 mL)) 14:10: Sat06/20/20 [place] injection 00 at 0810, Medica l Until Branch Discontinu ed, Routine, Intra-op bupivacaine Yes PRN, Univer s (preserv 3-08 Starting ity of free) 14:10: Sat06/20/20 [place] (SENSORCAIN 00 at 0810, Medi brandy E MPF) 0.25 Until Branch % (2.5 Discontinu mg/mL) ed, injection Routine, Intra-op lidocaine Yes PRN, Univers 1% 308 Starting ity of (XYLOCAINE) 14:09: Sat06/20/20 [place] 10 mg/mL (1 00 at 0809, Medi brandy %) Until Branch injection Discontinu ed, Routine, Intra-op propofoL IV 2020- No Intravenou Univers infusion 08 03-08 s, ONCE ity of 14:05: 14:12 INTRA [place] 00 :42 PROCEDURE, Medical Starting Branch [facility] 06/20/20 at 0805, Until Sat06/20/20 at 0812, Routine, Intra-op lactated 2020-0 2020- No IV Univers ringers IV 06-20 03-08 Infusion, ity of infusion 14:03: 14:12 CONTINUOUS [place] 00 :42 PRN, Medical Starting Branch [facility] 06/20/20 at 0803, Until Sat06/20/20 at 0812, Routine, Intra-op lactated 2020-0 2020- No 1000mL at 42 Unive rs ringers IV 3- 03-08 mL/hr, ity of infusion 13:00: 13:17 1,000 mL, [place] 1,000 mL 00 :00 IV Medical Infusion, Branch ONCE, 1 dose, 06/20/20 at 0700, Routine, DSU Pre-op LOSARTAN 2020-0 Yes 100mg Take 100 Univ ers POTASSIUM 3-08 mg by ity of (LOSARTAN 12:29: mouth [place] ORAL) 33 daily. Medical Branch gabapentin 0 Yes 300mg Take 300 Un you (NEURONTIN) 3-08 mg by ity of 300 mg 12:29: mouth 3 [place] capsule 33 (three) Medical times Branch daily. QUEtiapine 2020-0 Yes 400mg Take 400 Un you (SEROQUEL) 3-08 mg by ity of 400 mg 12:29: mouth at [place] tablet 33 bedtime. Medical Branch escitalopra 0 Yes 20mg Take 20 mg Univers m oxalate 3-08 by mouth ity of (LEXAPRO) 12:29: at [place] 20 mg 33 bedtime. Medical tablet Branch divalproex 2020-0 Yes 500mg Take 500 Un you (DEPAKOTE) 3-08 mg by ity of 500 mg EC 12:29: mouth [place] tablet 33 daily. Medical Branch tiZANidine 0 Yes 4mg Take 4 mg Un you 4 mg 3-08 by mouth 2 ity of capsule 12:29: (two) [place] 33 times Medical daily. Branch chlordiazeP 0 Yes 10mg Take 10 mg Univers OXIDE 10 mg 3-08 by mouth 3 it y of capsule 12:29: (three) [place] 33 times Medical daily. Branch meloxicam 0 Yes 7.5mg Take 7.5 Uni vers 7.5 mg 3-08 mg by ity of tablet 12:29: mouth [place] 33 daily. Medical Branch lithium 0 Yes 300mg [...] 33 (two) Medical times Branch daily. LOSARTAN 2020-0 Yes 100mg Take 100 Univ ers POTASSIUM 3-05 mg by ity of (LOSARTAN 16:06: mouth [place] ORAL) 56 daily. Medical Branch gabapentin 202-0 Yes 300mg Take 300 Un you (NEURONTIN) 3-05 mg by ity of 300 mg 16:06: mouth 3 [place] capsule 56 (three) Medical times Branch daily. QUEtiapine 202-0 Yes 400mg Take 400 Un you (SEROQUEL) [...] mg 56 bedtime. Medical tablet Branch tiZANidine 0 Yes 4mg Take 4 mg Un you 4 mg 3-05 by mouth 2 ity of capsule 16:06: (two) [place] 56 times Medical daily. Branch meloxicam 0 Yes [...] [place] ORAL) 56 daily. Medical Branch gabapentin 0 Yes 300mg [...] mg 56 bedtime. Medical tablet Branch tiZANidine 0 Yes 4mg Take 4 mg Un you 4 mg 3-05 by mouth 2 ity of capsule 16:06: (two) [place] 56 times Medical daily. Branch meloxicam 0 Yes 7.5mg Take 7.5 Uni vers 7.5 mg 3-05 mg by ity of tablet 16:06: mouth [place] 56 daily. Medical Branch lithium 0 Yes 300mg Take 300 Unive rs carbonate 3-05 mg by ity of 300 mg 16:06: mouth 2 [place] capsule 56 (two) Medical times [place] daily. temazepam 0 Yes 15mg Take 15 mg Un you 15 mg 3-05 by mouth ity of capsule 16:06: at bedtime [place] 56 as needed Medical for Branch Insomnia. ursodioL 0 Yes 500mg Take 500 Univ ers 500 mg 3-05 mg by ity of tablet 16:06: mouth 2 [place] 56 (two) Medical times [place] daily. chlordiazeP 0 Yes 10mg Take 10 mg [facility] OXIDE 10 mg 3-05 by mouth 3 it y of capsule 16:05: (three) [place] 19 times Medical daily. Branch chlordiazeP 0 Yes 10mg Take 10 mg [facility] OXIDE 10 mg 3-05 by mouth 3 it y of capsule 16:05: (three) [place] 19 times Medical daily. Branch chlordiazeP 0 Yes 10mg Take 10 mg [facility] OXIDE 10 mg 3-05 by mouth 3 it y of capsule 16:05: (three) [place] 19 times Medical daily. Branch butalbital- 2020- No 1{tbl} 1 tablet, Univers acetaminoph 05-07 Oral, ONCE i ty of en-caff 00:15: 23:33 NOW, 1 [place] (ESGIC) 00 :00 dose, Fri Medical 50-325-40 05/06/20 at Bran ch mg tablet 1 1814, [place] tablet dexamethaso No 10mg 10 mg, IV Univers ne 05-07 Push, ity of (DECADRON 00:15: 23:34 ONCE, 1 [place] PHOSPHATE) 00 :00 dose, Fri Medi brandy injection 05/06/20 at Bran ch 10 mg 1814, STAT diphenhydrA No 25mg 25 mg, Uni vers MINE [...] Medical dose, Fri Branch 05/06/20 at 1645, OLUIS
Fa culty member approving Restricted medication : EMERGENCY ROOM, NaCl 0.9% No 1000mL at 999 Uni vers (NS) bolus 05-06 mL/hr, ity of infusion 21:45: 00:30 1,000 mL, [place] as 1,000 mL 00 :00 IV Medical Infusion, Branch ONCE, 1 dose, 05/06/20 at 1545, [place] butalbital- Yes [id number] 1{tbl} Take 1 [facility] acetaminoph 1-22 tablet by ity of en-caff 00:00: mouth [place] 50-325-40 00 every 6 Medical mg tablet (six) Branch hours as needed for Pain (scale 7-10) or Other (headache) . butalbital- Yes [id number] 1{tbl} Take 1 [facility] acetaminoph 1-22 tablet by ity of en-caff 00:00: mouth [place] 50-325-40 00 every 6 Medical mg tablet (six) Branch hours as needed for Pain (scale 7-10) or Other (headache) . butalbital- Yes [id number] 1{tbl} Take 1 [facility] acetaminoph 1-22 tablet by ity of en-caff 00:00: mouth [place] 50-325-40 00 every 6 Medical mg tablet (six) Branch hours as needed for Pain (scale 7-10) or Other (headache) . butalbital- Yes [id number] 1{tbl} Take 1 [facility] acetaminoph 1-22 tablet by ity of en-caff 00:00: mouth [place] 50-325-40 00 every 6 Medical mg tablet (six) Branch hours as needed for Pain (scale 7-10) or Other (headache) . butalbital- Yes [id number] 1{tbl} Take 1 [facility] acetaminoph 1-22 tablet by ity of en-caff 00:00: mouth [place] 50-325-40 00 every 6 Medical mg tablet (six) Branch hours as needed for Pain (scale 7-10) or Other (headache) . butalbital Yes [id number] 1{tbl} Take 1 [facility] acetaminoph 1-22 tablet by ity of en-caff 00:00: mouth [place] 50-325-40 00 every 6 Medical mg tablet (six) Branch hours as needed for Pain (scale 7-10) or Other (headache) . butalbital- Yes [id number] 1{tbl} Take 1 [facility] acetaminoph 1-22 tablet by ity of en-caff 00:00: mouth [place] 50-325-40 00 every 6 Medical mg tablet (six) Branch hours as needed for Pain (scale 7-10) or Other (headache) . butalbital Yes [id number] 1{tbl} Take 1 [facility] acetaminoph 1-22 tablet by ity of en-caff 00:00: mouth [place] 50-325-40 00 every 6 Medical mg tablet (six) Branch hours as needed for Pain (scale 7-10) or Other (headache) . butalbital Yes [id number] 1{tbl} Take 1 [facility] acetaminoph 1-22 tablet by ity of en-caff 00:00: mouth [place] 50-325-40 00 every 6 Medical mg tablet (six) Branch hours as needed for Pain (scale 7-10) or Other (headache) . butalbital- Yes [id number] 1{tbl} Take 1 [facility] acetaminoph 1-22 tablet by ity of en-caff 00:00: mouth [place] 50-325-40 00 every 6 Medical mg tablet (six) Branch hours as needed for Pain (scale 7-10) or Other (headache) . butalbital- Yes [id number] 1{tbl} Take 1 [facility] acetaminoph 1-22 tablet by ity of en-caff 00:00: mouth [place] 50-325-40 00 every 6 Medical mg tablet (six) Branch hours as needed for Pain (scale 7-10) or Other (headache) . butalbital- Yes [id number] 1{tbl} Take 1 [facility] acetaminoph 1-22 tablet by ity of en-caff 00:00: mouth [place] 50-325-40 00 every 6 Medical mg tablet (six) Branch hours as needed for Pain (scale 7-10) or Other (headache) . butalbital- Yes [id number] 1{tbl} Take 1 [facility] acetaminoph 1-22 tablet by ity of en-caff 00:00: mouth [place] 50-325-40 00 every 6 Medical mg tablet (six) Branch hours as needed for Pain (scale 7-10) or Other (headache) . butalbital- 2020- No [id number] 1{tbl} Take 1 [facility] acetaminoph 1-22 04-05 tablet by it y of en-caff 00:00: 00:00 mouth [place] 50-325-40 00 :00 every 6 Medical mg tablet (six) Branch hours as needed for Pain (scale 7-10) or Other (headache) . butalbital- 2020- No [id number] 1{tbl} Take 1 [facility] acetaminoph 1-22 04-05 tablet by it y of en-caff 00:00: 00:00 mouth [place] 50-325-40 00 :00 every 6 Medical mg tablet (six) Branch hours as needed for Pain (scale 7-10) or Other (headache) . FENTanyl PF 2019-2019- No 75ug 75 mcg, Un you (SUBLIMAZE 05-27 Slow IV ity o f (PF)) 08:45: 07:49 Push, [place] injection 00 :00 ONCE, 1 Medical 75 mcg dose, Sat Branch 03/26/20 at 0245, Routine erythromyci 2019-04 2020- No .5[in_u 0.5 Inch, Univers n 2-12 12 s] Right Eye, ity of (ILOTYCIN) 07:00: 06:32 ONCE, 1 [place] 5 mg/gram 00 :00 dose, Sat Medic al (0.5 %) 03/26/20 Branch ophthalmic at 0100, ointment [place] 0.5 Inch iohexol 2019-04 2020- No 120mL 120 mL, Unive rs (OMNIPAQUE 05-27 Intravenou it y of 350 06:15: 06:07 s, ONCE, 1 [place] BULK-100 00 :00 dose, Sat Medica l mL) 03/26/20 Branch injection at 0015, 120 mL Routine morpHINE 2019-04- No 4mg 4 mg, Slow Un you injection 4 05-27 IV Push, ity of mg 06:15: 05:09 ONCE, 1 [place] 00 :00 dose, [facility] Medical 03/26/20 Branch at 0015, STAT pantoprazol [...] ity of (PF)) 04:45: 03:38 ONCE, 1 [place] injection 4 00 :00 dose, Fri Med ical mg 03/25/20 Branch at 2245, [place] morpHINE 2019-04- No 4mg 4 mg, Slow Un you injection 4 05-27 IV Push, ity of mg 04:45: 03:40 ONCE, 1 [place] 00 :00 dose, [facility] Medical 03/25/20 Branch at 2245, STAT traMADoL [...] (scale 7-10). Indication s: acute pain erythromyci 2019-04- No [id number] .5[in_u Place 0.5 Univers n 5 mg/gram 2-04-03 147011 s] Inches in ity of (0.5 %) [...] mouth [place] 10 daily. Medical Branch lithium 2020 Yes 300mg Take 300 Unive rs carbonate 0-26 mg by ity of 300 mg 21:14: mouth 2 [place] capsule 10 (two) Medical times Branch daily. temazepam 2020 Yes 15mg Take 15 mg Un you [...] mg 10 bedtime. Medical tablet Branch divalproex 2019- Yes 500mg Take 500 Un you (DEPAKOTE) [...] mouth [place] 10 daily. Medical Branch lithium 2020 Yes 300mg Take 300 Unive rs carbonate [...] [place] 10 times Medical daily. Branch chlordiazeP 2020 Yes 10mg Take 10 mg Univers OXIDE [...] [place] tablet 10 bedtime. Medical Branch escitalopra 2020 Yes 20mg Take 20 mg Univers m [...] [place] tablet 10 daily. Medical Branch LORazepam 2019- 2020- No 1mg 1 mg, Slow U nivers (ATIVAN) 0-26 10-26 IV Push, ity of injection 1 13:45: 13:01 ONCE, 1 [place] mg 00 :00 dose, [facility] Medical 02/08/20 Branch at 0845, Routine amLODIPine 2019- Yes [id number] 10mg Take 1 [facility] 10 mg 0-26 tablet by ity of tablet 00:00: mouth [place] 00 daily. Medical Branch hydrALAZINE 2019- Yes [id number] 50mg Take 1 [facility] 50 mg 0-26 tablet by ity of tablet 00:00: mouth [place] 00 every 8 Medical (eight) Branch hours. aspirin 81 2019- Yes [id number] 81mg Take 1 [facility] mg chewable 0-26 tablet by ity of tablet 00:00: mouth [place] 00 daily. Medical Branch amLODIPine 2019-04 Yes [id number] 10mg Take 1 [facility] 10 mg 0-26 tablet by ity of tablet 00:00: mouth [place] 00 daily. Medical Branch hydrALAZINE 2019-04 Yes [id number] 50mg Take 1 [facility] 50 mg 0-26 tablet by ity of tablet 00:00: mouth [place] 00 every 8 Medical (eight) Branch hours. aspirin 81 2019-04 Yes [id number] 81mg Take 1 [facility] mg chewable 0-26 tablet by ity of tablet 00:00: mouth [place] 00 daily. Medical Branch amLODIPine 2019-04 Yes [id number] 10mg Take 1 [facility] 10 mg 0-26 tablet by ity of tablet 00:00: mouth [place] 00 daily. Medical Branch hydrALAZINE 2019-04 Yes [id number] 50mg Take 1 [facility] 50 mg 0-26 tablet by ity of tablet 00:00: mouth [place] 00 every 8 Medical (eight) Branch hours. aspirin 81 2019-04 Yes [id number] 81mg Take 1 [facility] mg chewable 0-26 tablet by ity of tablet 00:00: mouth [place] 00 daily. Medical Branch amLODIPine 2019-04 Yes [id number] 10mg Take 1 [facility] 10 mg 0-26 tablet by ity of tablet 00:00: mouth [place] 00 daily. Medical Branch hydrALAZINE 2019-04 Yes [id number] 50mg Take 1 [facility] 50 mg 0-26 tablet by ity of tablet 00:00: mouth [place] 00 every 8 Medical (eight) Branch hours. aspirin 81 2019-04 Yes [id number] 81mg Take 1 [facility] mg chewable 0-26 tablet by ity of tablet 00:00: mouth [place] 00 daily. Medical Branch amLODIPine 2019-04 Yes [id number] 10mg Take 1 [facility] 10 mg 0-26 tablet by ity of tablet 00:00: mouth [place] 00 daily. Medical Branch hydrALAZINE 2019-1 Yes [id number] 50mg Take 1 [facility] 50 mg 0-26 tablet by ity of tablet 00:00: mouth [place] 00 every 8 Medical (eight) Branch hours. aspirin 81 2019-04 Yes [id number] 81mg Take 1 [facility] mg chewable 0-26 tablet by ity of tablet 00:00: mouth [place] 00 daily. Medical Branch amLODIPine 2019-04 Yes [id number] 10mg Take 1 [facility] 10 mg 0-26 tablet by ity of tablet 00:00: mouth [place] 00 daily. Medical Branch hydrALAZINE 2019-04 Yes [id number] 50mg Take 1 [facility] 50 mg 0-26 tablet by ity of tablet 00:00: mouth [place] 00 every 8 Medical (eight) Branch hours. aspirin 81 2019-04 Yes [id number] 81mg Take 1 [facility] mg chewable 0-26 tablet by ity of tablet 00:00: mouth [place] 00 daily. Medical Branch amLODIPine 2019-04 Yes [id number] 10mg Take 1 [facility] 10 mg 0-26 tablet by ity of tablet 00:00: mouth [place] 00 daily. Medical Branch hydrALAZINE 2019-04 Yes [id number] 50mg Take 1 [facility] 50 mg 0-26 tablet by ity of tablet 00:00: mouth [place] 00 every 8 Medical (eight) Branch hours. aspirin 81 2019-04 Yes [id number] 81mg Take 1 [facility] mg chewable 0-26 tablet by ity of tablet 00:00: mouth [place] 00 daily. Medical Branch amLODIPine 2019-04 Yes [id number] 10mg Take 1 [facility] 10 mg 0-26 tablet by ity of tablet 00:00: mouth [place] 00 daily. Medical Branch hydrALAZINE 2019-04 Yes [id number] 50mg Take 1 [facility] 50 mg 0-26 tablet by ity of tablet 00:00: mouth [place] 00 every 8 Medical (eight) Branch hours. aspirin 81 2019-04 Yes [id number] 81mg Take 1 [facility] mg chewable 0-26 tablet by ity of tablet 00:00: mouth [place] 00 daily. Medical Branch amLODIPine 2019-04 Yes [id number] 10mg Take 1 [facility] 10 mg 0-26 tablet by ity of tablet 00:00: mouth [place] 00 daily. Medical Branch hydrALAZINE 2019- Yes [id number] 50mg Take 1 [facility] 50 mg 0-26 tablet by ity of tablet 00:00: mouth [place] 00 every 8 Medical (eight) Branch hours. aspirin 81 2020-1 Yes [id number] 81mg Take 1 [facility] mg chewable 0-26 tablet by ity of tablet 00:00: mouth [place] 00 daily. Medical Branch amLODIPine 2019- Yes [id number] 10mg Take 1 [facility] 10 mg 0-26 tablet by ity of tablet 00:00: mouth [place] 00 daily. Medical Branch hydrALAZINE 2019- Yes [id number] 50mg Take 1 [facility] 50 mg 0-26 tablet by ity of tablet 00:00: mouth [place] 00 every 8 Medical (eight) Branch hours. aspirin 81 2019- Yes [id number] 81mg Take 1 [facility] mg chewable 0-26 tablet by ity of tablet 00:00: mouth [place] 00 daily. Medical Branch amLODIPine 2019-04 Yes [id number] 10mg Take 1 [facility] 10 mg 0-26 tablet by ity of tablet 00:00: mouth [place] 00 daily. Medical Branch hydrALAZINE 2019- Yes [id number] 50mg Take 1 [facility] 50 mg 0-26 tablet by ity of tablet 00:00: mouth [place] 00 every 8 Medical (eight) Branch hours. aspirin 81 2019-04 Yes [id number] 81mg Take 1 [facility] mg chewable 0-26 tablet by ity of tablet 00:00: mouth [place] 00 daily. Medical Branch amLODIPine 2019- Yes [id number] 10mg Take 1 [facility] 10 mg 0-26 tablet by ity of tablet 00:00: mouth [place] 00 daily. Medical Branch hydrALAZINE 2019- Yes [id number] 50mg Take 1 [facility] 50 mg 0-26 tablet by ity of tablet 00:00: mouth [place] 00 every 8 Medical (eight) Branch hours. aspirin 81 2019-1 Yes [id number] 81mg Take 1 [facility] mg chewable 0-26 tablet by ity of tablet 00:00: mouth [place] 00 daily. Medical Branch amLODIPine 2019- Yes [id number] 10mg Take 1 [facility] 10 mg 0-26 tablet by ity of tablet 00:00: mouth [place] 00 daily. Medical Branch hydrALAZINE 2019- Yes [id number] 50mg Take 1 [facility] 50 mg 0-26 tablet by ity of tablet 00:00: mouth [place] 00 every 8 Medical (eight) Branch hours. aspirin 81 2019-1 Yes [id number] 81mg Take 1 [facility] mg chewable 0-26 tablet by ity of tablet 00:00: mouth [place] 00 daily. Medical Branch amLODIPine 2019- Yes [id number] 10mg Take 1 Univers 10 mg 0-26 tablet by ity of tablet 00:00: mouth [place] 00 daily. Medical Branch hydrALAZINE 2019- Yes [id number] 50mg Take 1 Univers 50 mg 0-26 tablet by ity of tablet 00:00: mouth [place] 00 every 8 Medical (eight) Branch hours. aspirin 81 2019-04 Yes [id number] 81mg Take 1 Univers mg chewable 0-26 tablet by ity of tablet 00:00: mouth [place] 00 daily. Medical Branch amLODIPine 2019-04 Yes [id number] 10mg Take 1 Univers 10 mg 0-26 tablet by ity of tablet 00:00: mouth [place] 00 daily. Medical Branch hydrALAZINE 2019-04 Yes [id number] 50mg Take 1 [facility] 50 mg 0-26 tablet by ity of tablet 00:00: mouth [place] 00 every 8 Medical (eight) Branch hours. aspirin 81 2019-04 Yes [id number] 81mg Take 1 Univers mg chewable 0-26 tablet by ity of tablet 00:00: mouth [place] 00 daily. Medical Branch amLODIPine 2019-04 Yes [id number] 10mg Take 1 [facility] 10 mg 0-26 tablet by ity of tablet 00:00: mouth [place] 00 daily. Medical Branch hydrALAZINE 2019- Yes [id number] 50mg Take 1 [facility] 50 mg 0-26 tablet by ity of tablet 00:00: mouth [place] 00 every 8 Medical (eight) Branch hours. aspirin 81 2019- Yes [id number] 81mg Take 1 Univers mg chewable 0-26 tablet by ity of tablet 00:00: mouth [place] 00 daily. Medical Branch amLODIPine 2019-04 Yes [id number] 10mg Take 1 Univers 10 mg 0-26 tablet by ity of tablet 00:00: mouth [place] 00 daily. Medical Branch hydrALAZINE 2019- Yes [id number] 50mg Take 1 Univers 50 mg 0-26 tablet by ity of tablet 00:00: mouth [place] 00 every 8 Medical (eight) Branch hours. aspirin 81 2019-04 Yes [id number] 81mg Take 1 Univers mg chewable 0-26 tablet by ity of tablet 00:00: mouth [place] 00 daily. Medical Branch amLODIPine 2019-04 Yes [id number] 10mg Take 1 Univers 10 mg 0-26 tablet by ity of tablet 00:00: mouth [place] 00 daily. Medical Branch hydrALAZINE 2019-04 Yes [id number] 50mg Take 1 [facility] 50 mg 0-26 tablet by ity of tablet 00:00: mouth [place] 00 every 8 Medical (eight) Branch hours. aspirin 81 2019-04 Yes [id number] 81mg Take 1 Univers mg chewable 0-26 tablet by ity of tablet 00:00: mouth [place] 00 daily. Medical Branch amLODIPine 2019-04- No [id number] 10mg Take 1 Univers 10 mg 0-26 04-05 tablet by ity of tablet 00:00: 00:00 mouth [place] 00 :00 daily. Medical Branch hydrALAZINE 2019-04- No [id number] 50mg Take 1 Univers 50 mg 0-26 04-05 tablet by ity of tablet 00:00: 00:00 mouth [place] 00 :00 every 8 Medical (eight) Branch hours. aspirin 81 2019-04- No [id number] 81mg Take 1 Univers mg chewable 0-26 04-05 tablet by it y of tablet 00:00: 00:00 mouth [place] 00 :00 daily. Medical Branch amLODIPine 2019-04- No [id number] 10mg Take 1 Univers 10 mg 0-26 04-05 tablet by ity of tablet 00:00: 00:00 mouth [place] 00 :00 daily. Medical Branch hydrALAZINE 2019-04- No [id number] 50mg Take 1 [facility] 50 mg 0-26 04-05 tablet by ity of tablet 00:00: 00:00 mouth [place] 00 :00 every 8 Medical (eight) Branch hours. aspirin 81 2019-04- No [id number] 81mg Take 1 Univers mg chewable 0-26 [...] Medical (after Branch last modificati on) on 02/05/20 at 1245, Until Discontinu ed, Routine LORazepam 2019-04- No 1mg 1 mg, Slow U nivers (ATIVAN) 0-23 10-24 IV Push, ity of injection 1 17:00: 02:13 ONCE, 1 [place] mg 00 :00 dose, [facility] Medical 02/05/20 Branch at 1200, Routine lipase-prot 2019-04 Yes 3{capsu 3 capsule, Univers ease-amylas 0-23 le} Oral, TID ity of e (CREON) 14:00: MEALS, [place] 12,000-38,0 00 First dose Me dical 00 -60,000 on Fri Branch unit 02/05/20 capsule 3 at 0900, capsule Until Discontinu ed, Routine ondansetron 2019-04- No 4mg 4 mg, Univ ers (ZOFRAN) 0-22 10-22 Oral, ity of tablet 4 mg 22:30: 22:42 ONCE, 1 [place] 00 :[place] dose, [facility] 02/04/20 Branch at 1730, Routine ondansetron 2019-04 Yes 4mg 4 mg, Unive rs (ZOFRAN) 0-22 Oral, ity of tablet 4 mg 21:25: Q6HPRN, [place] 39 Starting Medical [facility] Branch 02/04/20 at 1625, Until Discontinu ed, Routine, Nausea and Vomiting (N/V) ondansetron 2019-04- No 4mg 4 mg, Slow Univers (ZOFRAN 0-22 10-22 IV Push, ity of (PF)) 15:15: 21:26 Q8HPRN, [place] injection 4 54 :52 Starting Medi brandy mg [place] Branch 02/04/20 at 1015, Until [facility] 02/04/20 at 1626, Routine, Nausea and Vomiting (N/V) LORazepam 2019-04- No 1mg 1 mg, Univer s (ATIVAN) 0-22 10-22 Oral, ity of tablet 1 mg 14:30: 23:16 ONCE, 1 [place] 00 :00 dose, [facility] 02/04/20 Branch at 0930, Routine enoxaparin 2019-04 Yes 40mg 40 mg, Unive rs (LOVENOX) 0-22 Subcutaneo ity of injection 14:00: us, DAILY, [place] 40 mg 00 First dose Medical on [facility] Branch 02/04/20 at 0900, Until Discontinu ed, Routine divalproex 2019-04 Yes 500mg 500 mg, Uni vers (DEPAKOTE) 0-22 Oral, ity of EC tablet 14:00: DAILY, [place] 500 mg 00 First dose Medical on [facility] 02/04/20 at 0900, Until Discontinu ed, Routine pantoprazol 2019-04 Yes 40mg 40 mg, Univ ers e 0-22 Oral, BID, ity of (PROTONIX) 13:00: First dose [place] EC tablet 00 on [facility] 40 mg 02/04/20 Branch at 0800, Until Discontinu ed, Routine lactulose 2019-04 Yes 15mL 15 mL, Univer s (CEPHULAC) 0-22 Oral, BID, ity of solution 15 13:00: First dose [place] mL 00 (after Medical last Branch modificati on) on [facility] 02/04/20 at 0800, Until Discontinu ed, Routine traMADoL 2019-04 Yes 50mg 50 mg, Univers (ULTRAM) 0-22 Oral, ity of tablet 50 03:22: Q8HPRN, [place] mg 09 Starting Medical [facility] Branch 02/03/20 at 2222, Until Discontinu ed, Routine, Pain (scale 4-6) lactated 2019-04 2020- No 1000mL at 100 Univ ers ringers IV 0-22 10-25 mL/hr, ity of infusion 02:15: 23:20 1,000 mL, [place] as 1,000 mL 00 :45 IV Medical Infusion, Branch CONTINUOUS , Starting [facility] 02/03/20 at 2115, Until 02/07/20 at 1820, Routine docusate 2019-04 Yes 100mg 100 mg, Unive rs (COLACE) 0 Oral, ity of capsule 100 02:01: BIDPRN, [place] mg 06 Starting Medical [facility] 02/03/20 at 2101, Until Discontinu ed, Routine, Constipati on acetaminoph 2019-04 Yes 650mg 650 mg, Un you en 0 Oral, ity of (TYLENOL) 01:58: Q8HPRN, [place] tablet 650 47 Starting Medic al mg [facility] 02/03/20 at 2058, Until Discontinu ed, Routine, Pain (scale 1-3) ondansetron 2019-04- No 4mg 4 mg, Univ ers (ZOFRAN) 002-03 Oral, ity of tablet 4 mg 01:52: 21:19 Q8HPRN, [place] 29 :27 Starting Medical [facility] 02/03/20 at 205, Until [place] 02/04/20 at 1619, Routine, Nausea and Vomiting (N/V) sennosides 2019-04 Yes 8.6mg 8.6 mg, Uni vers (SENOKOT) 0 Oral, ity of tablet 8.6 16:30: DAILY, [place] mg 00 First dose Medical on [facility] 02/03/20 at 1130, Until Discontinu ed, Routine magnesium 2019-04 Yes 400mg 400 mg, Univ ers oxide 0 Oral, ity of (MAG-OX 16:30: DAILY, [place] 400) tablet 00 First dose Me dical 400 mg on [facility] 02/03/20 at 1130, Until Discontinu ed, Routine docusate 2019-04 2020- No 100mg 100 mg, Univ ers (COLACE) 002-03 Oral, ity of capsule 100 16:30: 02:14 DAILY, [place] mg 00 :35 First dose Medical on [facility] 02/03/20 at 1130, Until Discontinu ed, Routine lactulose 2019-04 2020- No 15mL 15 mL, Unive rs (CEPHULAC) 002-02 Oral, QID, it y of solution 15 03:30: 21:01 First dose [place] mL 00 :02 on [facility] 02/02/20 Branch at 2230, Until Discontinu ed, Routine amLODIPine 2019-04 Yes 10mg 10 mg, Unive rs (NORVASC) 0-20 Oral, ity of tablet 10 22:30: DAILY, [place] mg 00 First dose Medical on [facility] 02/02/20 at 1730, Until Discontinu ed, Routine labetaloL 2019-04 Yes 10mg 10 mg, Univer s (NORMODYNE) 0-20 Slow IV ity o f injection 22:18: Push, [place] 10 mg 17 Q4HPRN, Medical Starting Branch Sat02/02/20 at 1718, Until Discontinu ed, Routine, sbp > 180 or dbp > 110. hold if HR < 60 D5W 0.45% 2019-04- No IV Univers NaCl 0-20 10-21 Infusion, ity of (1/2NS) 1 L 20:15: 16:24 at 50 [place] + KCL 20 00 :26 mL/hr, Medical mEq CONTINUOUS Branch , Starting Sat02/02/20 at 1515, Until Sat02/03/20 at 1124, Routine losartan 2019-04 Yes 100mg 100 mg, Unive rs (COZAAR) 0-20 Oral, ity of tablet 100 19:15: DAILY, [place] mg 00 First dose Medical on [facility] 02/02/20 at 1415, Until Discontinu ed, Routine lipase-prot 2019-04 2020- No 1{capsu 1 capsule, Univers ease-amylas 0-20 10-23 le} Oral, TID it y of e 19:15: 13:49 MEALS, [place] (PANCREAZE) 00 :19 First dose Me dical 16,800-56,8 on [facility] 00- 98,400 02/02/20 unit at 1415, capsule [...] No .1mg 0.1 mg, Univ ers (CATAPRES) 0- 10-20 Oral, ity of tablet 0.1 06:00: 05:21 ONCE, 1 [place] mg 00 :00 dose, [facility] Medical 02/02/20 Branch at 0100, Routine D5W 0.45% 2019-04- No 1000mL at 150 Uni vers NaCl 0-20 10-20 mL/hr, ity of (1/2NS) IV 00:15: 19:02 1,000 mL, [place] infusion 00 :15 IV Medical 1,000 mL Infusion, Branch CONTINUOUS , Starting Sat02/01/20 at 1915, Until Sat02/02/20 at 1402, Routine vancomycin 2019-04 2020- No 15mg/kg 1,250 mg Univers 1250 mg in 0 10-20 (rounded ity of NS 250 mL 00:15: [...] 10 mg 41 Q4HPRN, Medical Starting Branch [facility] 02/01/20 at 1545, Until Discontinu ed, STAT, SBP > 180, DBP > 120
Ind ication: Hypertensi ve Emergency NaCl 0.45% 2019-04- No 1000mL at 150 Un you (1/2NS) IV 0-19 10-20 mL/hr, ity of infusion 18:45: 06:44 1,000 mL, [place] 1,000 mL 00 :00 IV Medical Infusion, Branch ONCE, 1 dose, [facility] 02/01/20 at 1345, Routine cyanocobala 2019-04- No 1000ug 1,000 mcg, Univers min 0- 10-24 Subcutaneo ity of (VITAMIN 15:30: 14:03 us, Q24H, [place] as B12) 00 :58 First dose Medical injection on Mon Branch 1,000 mcg 02/01/20 at 1030, Until Discontinu ed, Routine NaCl 0.45% 2019-04- No 1000mL at 100 Un you (1/2NS) IV 0-19 10-19 mL/hr, ity of infusion 15:30: 17:38 1,000 mL, [place] 1,000 mL 00 :01 IV Medical Infusion, Branch CONTINUOUS , Starting Sat02/01/20 at 1030, Until [facility] 02/01/20 at 1238, Routine enoxaparin 2019-04- No 30mg 30 mg, Univ ers (LOVENOX) 022 Subcutaneo ity of injection 14:00: 02:09 us, DAILY, [place] 30 mg 00 :34 First dose Medical on [facility] Branch 02/01/20 at 0900, Until Discontinu ed, Routine NaCl 0.9% 2019-04- No 2000mL at 125 Uni vers (NS) IV 0-19 10-19 mL/hr, IV ity of infusion 03:30: 03:17 Infusion, [place] 2,000 mL 00 :00 ONCE, 1 Medical dose, [place] Branch 01/31/20 at 2230, Routine thiamine 2019-04- No 100mg IV Univers (VITAMIN 0-01-31 Piggyback, ity of B1) 100 mg 22:30: 14:59 DAILY, 2 [place] in NaCl 00 :00 doses, Medical 0.9% (NS) First dose Bran ch piggyback on [place] 01/31/20 at 1730, Last dose on [facility] 02/01/20 at 0900, 50 mL lactated 2019-04 2020- No 1000mL at 125 Univ ers [place] IV 0-18 10-19 mL/hr, ity of infusion 22:30: 02:29 1,000 mL, [place] 1,000 mL 00 :41 IV Medical Infusion, Branch CONTINUOUS , Starting [place] 01/31/20 at 1730, Until [place] 01/31/20 at 2129, Routine NaCl 0.9% 2019-04- No 30mL/kg at 999 Un you (NS) bolus 0-18 10-18 mL/hr, ity of infusion 15:45: 16:04 2,730 [place] 2,730 mL 00 :00 (30 mL/kg Medica l ?91 kg), [place] IV Infusion, ONCE, 1 dose, 01/31/20 at 1045, [place] haloperidol 2019-0 2020- No 2.5mg 2.5 mg, U nivers lactate 12-17 Intravenou ity o f (HALDOL) 23:45: 22:50 s, ONCE, 1 [place] injection 00 :00 dose, Fri Medic al 2.5 mg 12/18/19 at Branch 1845, STAT FENTanyl PF 2019-2019- No 50ug 50 mcg, Un you (SUBLIMAZE 12-17 Slow IV ity o f (PF)) 23:45: 22:50 Push, [place] injection 00 :00 ONCE, 1 Medical 50 mcg dose, Fri [place] 12/18/19 at 1845, Routine iohexol 2019-0 2020- No 120mL 120 mL, Unive rs (OMNIPAQUE 12-17 Intravenou it y of 350 22:01: 22:02 s, ONCE, 1 [place] BULK-100 00 :00 dose, Fri Medica l mL) 12/18/19 at [place] injection 1715, 120 mL Routine proMETHazin 2019-0 2020- No 25mg 25 mg, IV Univers e 12-17 Piggyback, ity of (PHENERGAN) 21:30: 20:40 ONCE, 1 [place] 25 mg in 00 :00 dose, Fri Medica l NaCl 0.9% 12/18/19 at Branc h (NS) 50 mL 1630, 50 piggyback mL proMETHazin 2020-0 Yes [id number] 25mg Insert 1 Univers e 12-17 Suppositor ity of (PHENERGAN) 00:00: y [place] 25 mg 00 rectum Medical suppository every 4 Branc h (four) hours as needed for Nausea and Vomiting (N/V). proMETHazin 2020-0 Yes [id number] 25mg Insert 1 Univers e 12-17 Suppositor ity of (PHENERGAN) 00:00: y into [place] 25 mg 00 rectum Medical suppository every 4 Branc h (four) hours as needed for Nausea and Vomiting (N/V). proMETHazin 2020-0 Yes [id number] 25mg Insert 1 Univers e 9-04 Suppositor ity of (PHENERGAN) 00:00: y into [place] 25 mg 00 rectum Medical suppository every 4 Branc h (four) hours as needed for Nausea and Vomiting (N/V). proMETHazin 2020-0 Yes [id number] 25mg Insert 1 Univers e 9-04 Suppositor ity of (PHENERGAN) 00:00: y into [place] 25 mg 00 rectum Medical suppository every 4 Branc h (four) hours as needed for Nausea and Vomiting (N/V). proMETHazin 2020-0 Yes [id number] 25mg Insert 1 Univers e 9-04 Suppositor ity of (PHENERGAN) 00:00: y into [place] 25 mg 00 rectum Medical suppository every 4 Branc h (four) hours as needed for Nausea and Vomiting (N/V). proMETHazin 2020-0 Yes [id number] 25mg Insert 1 Univers e 9-04 Suppositor ity of (PHENERGAN) 00:00: y into [place] 25 mg 00 rectum Medical suppository every 4 Branc h (four) hours as needed for Nausea and Vomiting (N/V). proMETHazin 2020-0 Yes [id number] 25mg Insert 1 Univers e 9-04 Suppositor ity of (PHENERGAN) 00:00: y into [place] 25 mg 00 rectum Medical suppository every 4 Branc h (four) hours as needed for Nausea and Vomiting (N/V). proMETHazin 2020-0 Yes [id number] 25mg Insert 1 Univers e 9-04 Suppositor ity of (PHENERGAN) 00:00: y into [place] 25 mg 00 rectum Medical suppository every 4 Branc h (four) hours as needed for Nausea and Vomiting (N/V). proMETHazin 2020-0 Yes [id number] 25mg Insert 1 Univers e 9-04 Suppositor ity of (PHENERGAN) 00:00: y into [place] 25 mg 00 rectum Medical suppository every 4 Branc h (four) hours as needed for Nausea and Vomiting (N/V). proMETHazin 2020-0 Yes [id number] 25mg Insert 1 Univers e 9-04 Suppositor ity of (PHENERGAN) 00:00: y into [place] 25 mg 00 rectum Medical suppository every 4 Branc h (four) hours as needed for Nausea and Vomiting (N/V). proMETHazin 2020-0 Yes [id number] 25mg Insert 1 Univers e 9-04 Suppositor ity of (PHENERGAN) 00:00: y into [place] 25 mg 00 rectum Medical suppository every 4 Branc h (four) hours as needed for Nausea and Vomiting (N/V). proMETHazin 2020-0 Yes [id number] 25mg Insert 1 Univers e 9-04 Suppositor ity of (PHENERGAN) 00:00: y into [place] 25 mg 00 rectum Medical suppository every 4 Branc h (four) hours as needed for Nausea and Vomiting (N/V). proMETHazin 2020-0 Yes [id number] 25mg Insert 1 Univers e 9-04 Suppositor ity of (PHENERGAN) 00:00: y into [place] 25 mg 00 rectum Medical suppository every 4 Branc h (four) hours as needed for Nausea and Vomiting (N/V). proMETHazin 2020-0 Yes [id number] 25mg Insert 1 Univers e 9-04 Suppositor ity of (PHENERGAN) 00:00: y into [place] 25 mg 00 rectum Medical suppository every 4 Branc h (four) hours as needed for Nausea and Vomiting (N/V). proMETHazin 2020-0 Yes [id number] 25mg Insert 1 Univers e 9-04 Suppositor ity of (PHENERGAN) 00:00: y into [place] 25 mg 00 rectum Medical suppository every 4 Branc h (four) hours as needed for Nausea and Vomiting (N/V). proMETHazin 2020-0 Yes [id number] 25mg Insert 1 Univers e 9-04 Suppositor ity of (PHENERGAN) 00:00: y into [place] 25 mg 00 rectum Medical suppository every 4 Branc h (four) hours as needed for Nausea and Vomiting (N/V). proMETHazin 2020-0 Yes [id number] 25mg Insert 1 Univers e 9-04 Suppositor ity of (PHENERGAN) 00:00: y into [place] 25 mg 00 rectum Medical suppository every 4 Branc h (four) hours as needed for Nausea and Vomiting (N/V). proMETHazin 2020-0 Yes [id number] 25mg Insert 1 Univers e 9 Suppositor ity of (PHENERGAN) 00:00: y into [place] 25 mg 00 rectum Medical suppository every 4 Branc h (four) hours as needed for Nausea and Vomiting (N/V). proMETHazin 2020-0 Yes [id number] 25mg Insert 1 Univers e 9 Suppositor ity of (PHENERGAN) 00:00: y into [place] 25 mg 00 rectum Medical suppository every 4 Branc h (four) hours as needed for Nausea and Vomiting (N/V). proMETHazin 2019-0 2020- No [id number] 25mg Insert 1 Univers e 12-17-05 Suppositor ity of (PHENERGAN) 00:00: 00:00 y into [place] 25 mg 00 :00 rectum Medical suppository every 4 Branc h (four) hours as needed for Nausea and Vomiting (N/V). proMETHazin 2019-0 2020- No [id number] 25mg Insert 1 Univers e 12-17-05 Suppositor ity of (PHENERGAN) 00:00: 00:00 y into [place] 25 mg 00 :00 rectum Medical suppository every 4 Branc h (four) hours as needed for Nausea and Vomiting (N/V). Chlorhexidi Chlorhexidi 2019- 2020- No [place] 15 ML [facility] 10-05 [facility] - Gluconate Gluconate 00:00: 00:00 spit Me [place] 00 :00 [facility] cloNIDine 2019- 2020- No .2mg 0.2 mg, Univ ers (CATAPRES) 08-21 05-09 Oral, ity of tablet 0.2 05:00: 04:00 ONCE, 1 [place] mg 00 :00 dose, Sat Medical 08/22/19 at Branch 0000, STAT ondansetron 2019- 2020- No 4mg 4 mg, Slow Univers (ZOFRAN 08-21- IV [place], ity of (PF)) 04:15: 03:15 ONCE, 1 [place] injection 4 00 :00 dose, Fri Med ical mg 08/21/19 at Branch 2315, [place] FENTanyl PF 2019-0 2020- No 50ug 50 mcg, Un you (SUBLIMAZE 08-21 Slow IV ity o f (PF)) 04:15: 03:15 Push, [place] injection 00 :00 ONCE, 1 Medical 50 mcg dose, Fri Branch 08/21/19 at 2315, Routine benzonatate 2019-0 2020- No 200mg 200 mg, U nivers (TESSALON 08-21 Oral, ONCE ity of PERLES) 04:15: 03:15 NOW, 1 [place] capsule 200 00 :00 dose, Fri Med ical mg 08/21/19 at Branch 2315, Routine Nitrofurant 2020-0 Yes [id number] 100mg Take 1 Univers oin&Nit. 5-08 capsule by ity o f Macrocryst 00:00: mouth 2 [place] (MACROBID) 00 (two) Medical 100 mg times Branch capsule daily. benzonatate 2020-0 Yes [id number] 200mg Take 1 Univers 200 mg 5-08 capsule by ity of capsule 00:00: mouth 3 (three) Medical times Branch daily as needed for Cough. ondansetron 2020-0 Yes [id number] 4mg Take 1 Univers (ZOFRAN) 4 5-08 tablet by ity of mg tablet 00:00: mouth 00 every 8 Medical (eight) Branch hours as needed for Nausea and Vomiting (N/V). traMADol 2020-0 Yes [id number] 50mg Take 1 Uni vers (ULTRAM) 50 5-08 tablet by ity of mg tablet 00:00: mouth [place] 00 every 6 Medical (six) Branch hours as needed for Pain (scale 7-10). albuterol 2020-0 Yes [id number] 2{puff} Inhale 2 Univers 90 5-08 Puffs ity of mcg/actuati 00:00: every 4 [place] on inhaler 00 (four) Medical hours as Branch needed for Wheezing, Shortness of Breath, Bronchospa sm or Chest tightness. benzonatate 2020-0 Yes [id number] 200mg Take 1 [facility] 200 mg 5-08 capsule by ity of capsule 00:00: mouth 3 00 (three) Medical times Branch daily as needed for Cough. ondansetron 2020-0 Yes [id number] 4mg Take 1 Univers (ZOFRAN) 4 5-08 tablet by ity of mg tablet 00:00: mouth [place] 00 every 8 Medical (eight) Branch hours as needed for Nausea and Vomiting (N/V). traMADol 2020-0 Yes [id number] 50mg Take 1 Uni vers (ULTRAM) 50 5-08 tablet by ity of mg tablet 00:00: mouth [place] 00 every 6 Medical (six) Branch hours as needed for Pain (scale 7-10). albuterol 2020-0 Yes [id number] 2{puff} Inhale 2 Univers 90 5-08 Puffs ity of mcg/actuati 00:00: every 4 [place] inhaler 00 (four) Medical hours as Branch needed for Wheezing, Shortness of Breath, Bronchospa sm or Chest tightness. benzonatate 2020-0 Yes [id number] 200mg Take 1 [facility] 200 mg 5-08 capsule by ity of capsule 00:00: mouth 3 [place] 00 (three) Medical times Branch daily as needed for Cough. ondansetron 2020-0 Yes [id number] 4mg Take 1 Univers (ZOFRAN) 4 5-08 tablet by ity of mg tablet 00:00: mouth [place] 00 every 8 Medical (eight) Branch hours as needed for Nausea and Vomiting (N/V). traMADol 2020-0 Yes [id number] 50mg Take 1 Uni vers (ULTRAM) 50 5-08 tablet by ity of mg tablet 00:00: mouth [place] 00 every 6 Medical (six) Branch hours as needed for Pain (scale 7-10). albuterol 2020-0 Yes [id number] 2{puff} Inhale 2 Univers 90 5-08 Puffs ity of mcg/actuati 00:00: every 4 [place] on inhaler 00 (four) Medical hours as Branch needed for Wheezing, Shortness of Breath, Bronchospa sm or Chest tightness. benzonatate 2020-0 Yes [id number] 200mg Take 1 [facility] 200 mg 5-08 capsule by ity of capsule 00:00: mouth 3 [place] 00 (three) Medical times Branch daily as needed for Cough. ondansetron 2020-0 Yes [id number] 4mg Take 1 Univers (ZOFRAN) 4 5-08 tablet by ity of mg tablet 00:00: mouth [place] 00 every 8 Medical (eight) Branch hours as needed for Nausea and Vomiting (N/V). traMADol 2020-0 Yes [id number] 50mg Take 1 Uni vers (ULTRAM) 50 5-08 tablet by ity of mg tablet 00:00: mouth [place] 00 every 6 Medical (six) Branch hours as needed for Pain (scale 7-10). albuterol 2020-0 Yes [id number] 2{puff} Inhale 2 Univers 90 5-08 Puffs ity of mcg/actuati 00:00: every 4 [place] inhaler 00 (four) Medical hours as Branch needed for Wheezing, Shortness of Breath, Bronchospa sm or Chest tightness. benzonatate 2020-0 Yes [id number] 200mg Take 1 [facility] 200 mg 5-08 capsule by ity of capsule 00:00: mouth 3 [place] 00 (three) Medical times Branch daily as needed for Cough. ondansetron 2020-0 Yes [id number] 4mg Take 1 Univers (ZOFRAN) 4 5-08 tablet by ity of mg tablet 00:00: mouth [place] 00 every 8 Medical (eight) Branch hours as needed for Nausea and Vomiting (N/V). traMADol 2020-0 Yes [id number] 50mg Take 1 Uni vers (ULTRAM) 50 5-08 tablet by ity of mg tablet 00:00: mouth [place] 00 every 6 Medical (six) Branch hours as needed for Pain (scale 7-10). albuterol 2020-0 Yes [id number] 2{puff} Inhale 2 [facility] 90 5-08 Puffs ity of mcg/actuati 00:00: every 4 [place] inhaler 00 (four) Medical hours as Branch needed for Wheezing, Shortness of Breath, Bronchospa sm or Chest tightness. benzonatate 2020-0 Yes [id number] 200mg Take 1 [facility] 200 mg 5-08 capsule by ity of capsule 00:00: mouth 3 [place] 00 (three) Medical times Branch daily as needed for Cough. ondansetron 2020-0 Yes [id number] 4mg Take 1 Univers (ZOFRAN) 4 5-08 tablet by ity of mg tablet 00:00: mouth [place] 00 every 8 Medical (eight) Branch hours as needed for Nausea and Vomiting (N/V). traMADol 2020-0 Yes [id number] 50mg Take 1 Uni vers (ULTRAM) 50 5-08 tablet by ity of mg tablet 00:00: mouth [place] 00 every 6 Medical (six) Branch hours as needed for Pain (scale 7-10). albuterol 2020-0 Yes [id number] 2{puff} Inhale 2 [facility] 90 5-08 Puffs ity of mcg/actuati 00:00: every 4 [place] inhaler 00 (four) Medical hours as Branch needed for Wheezing, Shortness of Breath, Bronchospa sm or Chest tightness. benzonatate 2020-0 Yes [id number] 200mg Take 1 [facility] 200 mg 5-08 capsule by ity of capsule 00:00: mouth 3 [place] 00 (three) Medical times Branch daily as needed for Cough. ondansetron 2020-0 Yes [id number] 4mg Take 1 Univers (ZOFRAN) 4 5-08 tablet by ity of mg tablet 00:00: mouth [place] 00 every 8 Medical (eight) Branch hours as needed for Nausea and Vomiting (N/V). traMADol 2020-0 Yes [id number] 50mg Take 1 Uni vers (ULTRAM) 50 5-08 tablet by ity of mg tablet 00:00: mouth [place] 00 every 6 Medical (six) Branch hours as needed for Pain (scale 7-10). albuterol 2020-0 Yes [id number] 2{puff} Inhale 2 [facility] 90 5-08 Puffs ity of mcg/actuati 00:00: every 4 [place] inhaler 00 (four) Medical hours as Branch needed for Wheezing, Shortness of Breath, Bronchospa sm or Chest tightness. benzonatate 2020-0 Yes [id number] 200mg Take 1 [facility] 200 mg 5-08 capsule by ity of capsule 00:00: mouth 3 [place] 00 (three) Medical times Branch daily as needed for Cough. ondansetron 2020-0 Yes [id number] 4mg Take 1 Univers (ZOFRAN) 4 5-08 tablet by ity of mg tablet 00:00: mouth [place] 00 every 8 Medical (eight) Branch hours as needed for Nausea and Vomiting (N/V). traMADol 2020-0 Yes [id number] 50mg Take 1 Uni vers (ULTRAM) 50 5-08 tablet by ity of mg tablet 00:00: mouth [place] 00 every 6 Medical (six) Branch hours as needed for Pain (scale 7-10). albuterol 2020-0 Yes [id number] 2{puff} Inhale 2 [facility] 90 5-08 Puffs ity of mcg/actuati 00:00: every 4 [place] inhaler 00 (four) Medical hours as Branch needed for Wheezing, Shortness of Breath, Bronchospa sm or Chest tightness. benzonatate 2020-0 Yes [id number] 200mg Take 1 [facility] 200 mg 5-08 capsule by ity of capsule 00:00: mouth 3 [place] 00 (three) Medical times Branch daily as needed for Cough. ondansetron 2020-0 Yes [id number] 4mg Take 1 Univers (ZOFRAN) 4 5-08 tablet by ity of mg tablet 00:00: mouth [place] 00 every 8 Medical (eight) Branch hours as needed for Nausea and Vomiting (N/V). traMADol 2020-0 Yes [id number] 50mg Take 1 Uni vers (ULTRAM) 50 5-08 tablet by ity of mg tablet 00:00: mouth [place] 00 every 6 Medical (six) Branch hours as needed for Pain (scale 7-10). albuterol 2020-0 Yes [id number] 2{puff} Inhale 2 [facility] 90 5-08 Puffs ity of mcg/actuati 00:00: every 4 [place] inhaler 00 (four) Medical hours as Branch needed for Wheezing, Shortness of Breath, Bronchospa sm or Chest tightness. benzonatate 2020-0 Yes [id number] 200mg Take 1 [facility] 200 mg 5-08 capsule by ity of capsule 00:00: mouth 3 [place] 00 (three) Medical times Branch daily as needed for Cough. ondansetron 2020-0 Yes [id number] 4mg Take 1 Univers (ZOFRAN) 4 5-08 tablet by ity of mg tablet 00:00: mouth [place] 00 every 8 Medical (eight) Branch hours as needed for Nausea and Vomiting (N/V). traMADol 2020-0 Yes [id number] 50mg Take 1 Uni vers (ULTRAM) 50 5-08 tablet by ity of mg tablet 00:00: mouth [place] 00 every 6 Medical (six) Branch hours as needed for Pain (scale 7-10). albuterol 2020-0 Yes [id number] 2{puff} Inhale 2 [facility] 90 5-08 Puffs ity of mcg/actuati 00:00: every 4 [place] inhaler 00 (four) Medical hours as Branch needed for Wheezing, Shortness of Breath, Bronchospa sm or Chest tightness. benzonatate 2020-0 Yes [id number] 200mg Take 1 [facility] 200 mg 5-08 capsule by ity of capsule 00:00: mouth 3 [place] 00 (three) Medical times Branch daily as needed for Cough. ondansetron 2020-0 Yes [id number] 4mg Take 1 Univers (ZOFRAN) 4 5-08 tablet by ity of mg tablet 00:00: mouth [place] 00 every 8 Medical (eight) Branch hours as needed for Nausea and Vomiting (N/V). traMADol 2020-0 Yes [id number] 50mg Take 1 Uni vers (ULTRAM) 50 5-08 tablet by ity of mg tablet 00:00: mouth [place] 00 every 6 Medical (six) Branch hours as needed for Pain (scale 7-10). albuterol 2020-0 Yes [id number] 2{puff} Inhale 2 [facility] 90 5-08 Puffs ity of mcg/actuati 00:00: every 4 [place] inhaler 00 (four) Medical hours as Branch needed for Wheezing, Shortness of Breath, Bronchospa sm or Chest tightness. benzonatate 2020-0 Yes [id number] 200mg Take 1 [facility] 200 mg 5-08 capsule by ity of capsule 00:00: mouth 3 00 (three) Medical times Branch daily as needed for Cough. ondansetron 2020-0 Yes [id number] 4mg Take 1 Univers (ZOFRAN) 4 5-08 tablet by ity of mg tablet 00:00: mouth [place] 00 every 8 Medical (eight) Branch hours as needed for Nausea and Vomiting (N/V). traMADol 2020-0 Yes [id number] 50mg Take 1 Uni vers (ULTRAM) 50 5-08 tablet by ity of mg tablet 00:00: mouth [place] 00 every 6 Medical (six) Branch hours as needed for Pain (scale 7-10). albuterol 2020-0 Yes [id number] 2{puff} Inhale 2 [facility] 90 5-08 Puffs ity of mcg/actuati 00:00: every 4 [place] inhaler 00 (four) Medical hours as Branch needed for Wheezing, Shortness of Breath, Bronchospa sm or Chest tightness. benzonatate 2020-0 Yes [id number] 200mg Take 1 [facility] 200 mg 5-08 capsule by ity of capsule 00:00: mouth 3 [place] 00 (three) Medical times Branch daily as needed for Cough. ondansetron 2020-0 Yes [id number] 4mg Take 1 Univers (ZOFRAN) 4 5-08 tablet by ity of mg tablet 00:00: mouth [place] 00 every 8 Medical (eight) Branch hours as needed for Nausea and Vomiting (N/V). traMADol 2020-0 Yes [id number] 50mg Take 1 Uni vers (ULTRAM) 50 5-08 tablet by ity of mg tablet 00:00: mouth [place] 00 every 6 Medical (six) Branch hours as needed for Pain (scale 7-10). albuterol 2020-0 Yes [id number] 2{puff} Inhale 2 [facility] 90 5-08 Puffs ity of mcg/actuati 00:00: every 4 [place] inhaler 00 (four) Medical hours as Branch needed for Wheezing, Shortness of Breath, Bronchospa sm or Chest tightness. benzonatate 2020-0 Yes [id number] 200mg Take 1 [facility] 200 mg 5-08 capsule by ity of capsule 00:00: mouth (three) Medical times Branch daily as needed for Cough. ondansetron 2020-0 Yes [id number] 4mg Take 1 Univers (ZOFRAN) 4 5-08 tablet by ity of mg tablet 00:00: mouth [place] 00 every 8 Medical (eight) Branch hours as needed for Nausea and Vomiting (N/V). traMADol 2020-0 Yes [id number] 50mg Take 1 Uni vers (ULTRAM) 50 5-08 tablet by ity of mg tablet 00:00: mouth [place] 00 every 6 Medical (six) Branch hours as needed for Pain (scale 7-10). albuterol 2020-0 Yes [id number] 2{puff} Inhale 2 [facility] 90 5-08 Puffs ity of mcg/actuati 00:00: every 4 [place] on inhaler 00 (four) Medical hours as Branch needed for Wheezing, Shortness of Breath, Bronchospa sm or Chest tightness. benzonatate 2020-0 Yes [id number] 200mg Take 1 [facility] 200 mg 5-08 capsule by ity of capsule 00:00: mouth 3 00 (three) Medical times Branch daily as needed for Cough. ondansetron 2020-0 Yes [id number] 4mg Take 1 Univers (ZOFRAN) 4 5-08 tablet by ity of mg tablet 00:00: mouth [place] 00 every 8 Medical (eight) Branch hours as needed for Nausea and Vomiting (N/V). traMADol 2020-0 Yes [id number] 50mg Take 1 Uni vers (ULTRAM) 50 5-08 tablet by ity of mg tablet 00:00: mouth [place] 00 every 6 Medical (six) Branch hours as needed for Pain (scale 7-10). albuterol 2020-0 Yes [id number] 2{puff} Inhale 2 [facility] 90 5-08 Puffs ity of mcg/actuati 00:00: every 4 [place] inhaler 00 (four) Medical hours as Branch needed for Wheezing, Shortness of Breath, Bronchospa sm or Chest tightness. benzonatate 2020-0 Yes [id number] 200mg Take 1 [facility] 200 mg 5-08 capsule by ity of capsule 00:00: mouth 3 [place] 00 (three) Medical times Branch daily as needed for Cough. ondansetron 2020-0 Yes [id number] 4mg Take 1 Univers (ZOFRAN) 4 5-08 tablet by ity of mg tablet 00:00: mouth [place] 00 every 8 Medical (eight) Branch hours as needed for Nausea and Vomiting (N/V). traMADol 2020-0 Yes [id number] 50mg Take 1 Uni vers (ULTRAM) 50 5-08 tablet by ity of mg tablet 00:00: mouth [place] 00 every 6 Medical (six) Branch hours as needed for Pain (scale 7-10). albuterol 2020-0 Yes [id number] 2{puff} Inhale 2 [facility] 90 5-08 Puffs ity of mcg/actuati 00:00: every 4 [place] inhaler 00 (four) Medical hours as Branch needed for Wheezing, Shortness of Breath, Bronchospa sm or Chest tightness. benzonatate 2020-0 Yes [id number] 200mg Take 1 [facility] 200 mg 5-08 capsule by ity of capsule 00:00: mouth 3 [place] 00 (three) Medical times Branch daily as needed for Cough. ondansetron 2020-0 Yes [id number] 4mg Take 1 [facility] (ZOFRAN) 4 5-08 tablet by ity of mg tablet 00:00: mouth [place] 00 every 8 Medical (eight) Branch hours as needed for Nausea and Vomiting (N/V). traMADol 2020-0 Yes [id number] 50mg Take 1 Uni vers (ULTRAM) 50 5-08 tablet by ity of mg tablet 00:00: mouth [place] 00 every 6 Medical (six) Branch hours as needed for Pain (scale 7-10). albuterol 2020-0 Yes [id number] 2{puff} Inhale 2 [facility] 90 5-08 Puffs ity of mcg/actuati 00:00: every 4 [place] inhaler 00 (four) Medical hours as Branch needed for Wheezing, Shortness of Breath, Bronchospa sm or Chest tightness. benzonatate 2020-0 Yes [id number] 200mg Take 1 [facility] 200 mg 5-08 capsule by ity of capsule 00:00: mouth 3 [place] 00 (three) Medical times Branch daily as needed for Cough. ondansetron 2020-0 Yes [id number] 4mg Take 1 Univers (ZOFRAN) 4 5-08 tablet by ity of mg tablet 00:00: mouth [place] 00 every 8 Medical (eight) Branch hours as needed for Nausea and Vomiting (N/V). traMADol 2020-0 Yes [id number] 50mg Take 1 Uni vers (ULTRAM) 50 5-08 tablet by ity of mg tablet 00:00: mouth [place] 00 every 6 Medical (six) Branch hours as needed for Pain (scale 7-10). albuterol 2020-0 Yes [id number] 2{puff} Inhale 2 [facility] 90 5-08 Puffs ity of mcg/actuati 00:00: every 4 [place] inhaler 00 (four) Medical hours as Branch needed for Wheezing, Shortness of Breath, Bronchospa sm or Chest tightness. benzonatate 2020-0 Yes [id number] 200mg Take 1 [facility] 200 mg 5-08 capsule by ity of capsule 00:00: mouth 3 [place] 00 (three) Medical times Branch daily as needed for Cough. ondansetron 2020-0 Yes [id number] 4mg Take 1 [facility] (ZOFRAN) 4 5-08 tablet by ity of mg tablet 00:00: mouth [place] 00 every 8 Medical (eight) Branch hours as needed for Nausea and Vomiting (N/V). traMADol 2020-0 Yes [id number] 50mg Take 1 Uni vers (ULTRAM) 50 5-08 tablet by ity of mg tablet 00:00: mouth [place] 00 every 6 Medical (six) Branch hours as needed for Pain (scale 7-10). albuterol 2020-0 Yes [id number] 2{puff} Inhale 2 [facility] 90 5-08 Puffs ity of mcg/actuati 00:00: every 4 [place] on inhaler 00 (four) Medical hours as Branch needed for Wheezing, Shortness of Breath, Bronchospa sm or Chest tightness. ondansetron 2020-0 Yes [id number] 4mg Take 1 [facility] (ZOFRAN) 4 5-08 tablet by ity of mg tablet 00:00: mouth [place] 00 every 8 Medical (eight) Branch hours as needed for Nausea and Vomiting (N/V). ondansetron 2020-0 Yes [id number] 4mg Take 1 [facility] (ZOFRAN) 4 5-08 tablet by ity of mg tablet 00:00: mouth [place] 00 every 8 Medical (eight) Branch hours as needed for Nausea and Vomiting (N/V). ondansetron 2020-0 Yes [id number] 4mg Take 1 [facility] (ZOFRAN) 4 5-08 tablet by ity of mg tablet 00:00: mouth [place] 00 every 8 Medical (eight) Branch hours as needed for Nausea and Vomiting (N/V). ondansetron 2020-0 Yes [id number] 4mg Take 1 [facility] (ZOFRAN) 4 5-08 tablet by ity of mg tablet 00:00: mouth [place] 00 every 8 Medical (eight) Branch hours as needed for Nausea and Vomiting (N/V). Nitrofurant 2020-0 Yes [id number] 100mg Take 1 [facility] oin&Nit. 5-08 capsule by ity o f Macrocryst 00:00: mouth 2 [place] (MACROBID) 00 (two) Medical 100 mg times Branch capsule daily. benzonatate 2020-0 Yes [id number] 200mg Take 1 [facility] 200 mg 5-08 capsule by ity of capsule 00:00: mouth 3 [place] 00 (three) Medical times Branch daily as needed for Cough. ondansetron 2020-0 Yes [id number] 4mg Take 1 [facility] (ZOFRAN) 4 5-08 tablet by ity of mg tablet 00:00: mouth [place] 00 every 8 Medical (eight) Branch hours as needed for Nausea and Vomiting (N/V). traMADol 2020-0 Yes [id number] 50mg Take 1 [facility] vers (ULTRAM) 50 5-08 tablet by ity of mg tablet 00:00: mouth [place] 00 every 6 Medical (six) Branch hours as needed for Pain (scale 7-10). albuterol Yes [id number] 2{puff} Inhale 2 [facility] 90 5-08 Puffs ity of mcg/actuati 00:00: every 4 [place] on inhaler 00 (four) Medical hours as Branch needed for Wheezing, Shortness of Breath, Bronchospa sm or Chest tightness. ondansetron 2020- No [id number] 4mg Take 1 [facility] (ZOFRAN) 4 5-08 06-30 tablet by ity of mg tablet 00:00: 00:00 mouth [place] 00 :00 every 8 Medical (eight) Branch hours as needed for Nausea and Vomiting (N/V). benzonatate 2020- No [id number] 200mg Take 1 [facility] 200 mg 5-08 04-05 capsule by ity of capsule 00:00: 00:00 mouth 3 [place] 00 :00 (three) Medical times Branch daily as needed for Cough. traMADol 2020- No [id number] 50mg Take 1 Un you (ULTRAM) 50 5-08 04-05 tablet by it y of mg tablet 00:00: 00:00 mouth [place] 00 :00 every 6 Medical (six) Branch hours as needed for Pain (scale 7-10). albuterol 2020- No [id number] 2{puff} Inhale 2 [facility] 90 5-08 04-05 Puffs ity of mcg/actuati 00:00: 00:00 every 4 [place] inhaler 00 :00 (four) Medical hours as Branch needed for Wheezing, Shortness of Breath, Bronchospa sm or Chest tightness. benzonatate 2020- No [id number] 200mg Take 1 [facility] 200 mg 5-08 04-05 capsule by ity of capsule 00:00: 00:00 mouth 3 [place] 00 :00 (three) Medical times Branch daily as needed for Cough. traMADol 2020- No [id number] 50mg Take 1 Un you (ULTRAM) 50 5-08 04-05 tablet by it y of mg tablet 00:00: 00:00 mouth [place] 00 :00 every 6 Medical (six) Branch hours as needed for Pain (scale 7-10). albuterol 2020- No [id number] 2{puff} Inhale 2 [facility] 90 08-20 04-05 Puffs ity of mcg/actuati 00:00: 00:00 every 4 [place] inhaler 00 :00 (four) Medical hours as Branch needed for Wheezing, Shortness of Breath, Bronchospa sm or Chest tightness. Nitrofurant 2019- No [id number] 100mg Take 1 [facility] oin&Nit. 08-20 capsule by ity of Macrocryst 00:00: 00:00 mouth 2 [place] (MACROBID) 00 :00 (two) Medical 100 mg times Branch capsule daily. HYDROcodone 2019- No 1{tbl} 1 tablet, Univers -acetaminop 06-25 Oral, ONCE i ty of hen (NORCO) 01:15: 00:22 NOW, 1 [place] as 10-325 mg 00 :00 dose, [facility] Medic al tablet 1 06/25/19 at [facility] h tablet 2014, [place] dicyclomine Yes 20mg 20 mg, Univ ers (BENTYL) 06-25 Intramuscu ity o f injection 01:00: lar, QID, [place] 20 mg 00 First dose Medical on [facility] 06/25/19 at 2000, Until Discontinu ed, [place] hydralAZINE 2019- No 20mg 20 mg, Uni vers (APRESOLINE 06-25 Intravenou i ty of ) injection 00:45: 00:10 s, ONCE [place] 20 mg 00 :00 NOW, 1 Medical dose, [facility] 06/25/19 at 1945, [place] metoclopram 2019- No 10mg 10 mg, Uni vers selena HCl 06-24 Slow IV ity of (REGLAN) 23:45: 22:48 Push, [place] injection 00 :00 ONCE, 1 Medical 10 mg dose, [facility] 06/25/19 at 1845, [place] ketorolac 2019-2019- No 30mg 30 mg, Unive rs (TORADOL) 06-24 Slow IV ity of injection 23:45: 22:49 Push, [place] 30 mg 00 :00 ONCE, 1 Medical dose, [facility] 06/25/19 at 1845, [place]
Fa culty member approving Restricted medication : KIRSTIN RON NaCl 0.9% 2020-0 2020- No 1000mL at 999 Uni vers (NS) bolus 06-24 03-13 mL/hr, ity of infusion 22:45: 01:01 1,000 mL, [place] as 1,000 mL 00 :00 IV Medical Infusion, [place] ONCE, 1 dose, [facility] 06/25/19 at 1745, [place] maalox:diph 2020-0 2020- No 15mL 15 mL, Uni vers enhydrAMINE 06-2412 Oral, ity of :lidocaine 22:45: 22:52 ONCE, 1 [place] 2 % viscous 00 :00 dose, [place] Med ical 1:1:1 06/25/19 at [place] (FIRST-MO 174, [place] [facility]) oral suspension 15 mL morpHINE 2019- 2020- No 4mg 4 mg, Slow Un you injection 4 06-19 IV Push, ity of mg 01:00: 00:10 ONCE, 1 [place] 00 :00 dose, Fri Medical 06/19/19 at [place] 1900, STAT maalox:diph 2020-0 2020- No 15mL 15 mL, Uni vers enhydrAMINE 06-19 Oral, ity of :lidocaine 01:00: 00:10 ONCE, 1 [place] 2 % viscous 00 :00 dose, Fri Med ical 1:1:1 06/19/19 at [place] ( 190, [facility]) Routine oral suspension 15 mL famotidine 2019-0 2020- No 20mg 20 mg, [facility] ers (PEPCID 06-18 Slow IV ity of (PF)) 22:30: 21:40 Push, [place] injection 00 :00 ONCE, 1 Medical 20 mg dose, [facility] 06/19/19 at 1630, [place] proMETHazin 2019-0 2020- No 12.5mg 12.5 mg, Univers e 06-18 IV ity of (PHENERGAN) 22:30: 21:40 [place]gy[place], [place] 12.5 mg in 00 :00 ONCE, 1 Medica l NaCl 0.9% dose, Fri Branc h (NS) 50 mL 06/19/19 at piggyback 1630, 50 mL morpHINE 2020-0 2020- No 4mg 4 mg, Slow Un you injection 4 3-06 03-06 IV Push, ity of mg 22:30: 21:40 ONCE, 1 [place] 00 :00 dose, Fri Medical 06/19/19 at Branch 1630, STAT NaCl 0.9% 2020-0 2020- No 1000mL at 999 Uni vers (NS) bolus 3-06 03-06 mL/hr, ity of infusion 21:30: 23:56 1,000 mL, [place] 1,000 mL 00 :00 IV Medical Infusion, Branch ONCE, 1 dose, 06/19/19 at 1530, [place] ondansetron 2020-0 Yes [id number] 8mg Take 2 [facility] 4 mg 3-06 tablets by ity of disintegrat 00:00: mouth [place] ing tablet 00 every 8 Medica l (eight) Branch hours as needed for Nausea and Vomiting (N/V). ondansetron 2020-0 Yes [id number] 8mg Take 2 [facility] 4 mg 3-06 tablets by ity of disintegrat 00:00: mouth [place] ing tablet 00 every 8 Medica l (eight) Branch hours as needed for Nausea and Vomiting (N/V). ondansetron 2020-0 Yes [id number] 8mg Take 2 [facility] 4 mg 3-06 tablets by ity of disintegrat 00:00: mouth [place] ing tablet 00 every 8 Medica l (eight) Branch hours as needed for Nausea and Vomiting (N/V). ondansetron 2020-0 Yes [id number] 8mg Take 2 [facility] 4 mg 3-06 tablets by ity of disintegrat 00:00: mouth [place] ing tablet 00 every 8 Medica l (eight) Branch hours as needed for Nausea and Vomiting (N/V). ondansetron 2020-0 2020- No [id number] 8mg Take 2 [facility] 4 mg 3-06 10-26 tablets by ity of disintegrat 00:00: 00:00 mouth [place] tablet 00 :00 every 8 Medica l (eight) Branch hours as needed for Nausea and Vomiting (N/V). famotidine 2020-0 2020- No [id number] 40mg Take 1 [facility] (PEPCID) 40 3-06 04-06 tablet by it y of mg tablet 00:00: 04:59 mouth [place] 00 :00 daily for Medical 30 days. Branch famotidine 2020-0 2020- No [id number] 40mg Take 1 [facility] (PEPCID) 40 3-06 04-06 tablet by it y of mg tablet 00:00: 04:59 mouth [place] 00 :00 daily for Medical 30 days. Branch morpHINE 2019-0 2020- No 4mg 4 mg, Slow Un you injection 4 05-20-05 IV Push, ity of mg 04:15: 03:09 ONCE, 1 [place] 00 :00 dose, Tue Medical 05/19/19 at [place] 2215, STAT iohexol 2020-0 2020- No 120mL 120 mL, Unive rs (OMNIPAQUE 2-05 Intravenou it y of 350 02:15: 02:15 s, ONCE, 1 [place] BULK-150 00 :00 dose, Tue Medica l mL) 05/19/19 at Branch injection 2014, 120 mL Routine ondansetron 2019-0 2019- No 4mg 4 mg, Slow Univers (ZOFRAN 2-05 IV Push, ity of (PF)) 02:15: 01:25 ONCE, 1 [place] injection 4 00 :00 dose, Tue Med ical mg 05/19/19 at Branch 2014, Routine morpHINE 2019-0 2020- No 4mg 4 mg, Slow Un you injection 4 05-20-05 IV Push, ity of mg 02:15: 01:25 ONCE, 1 00 :00 dose, [facility] Medical 05/19/19 at Branch 2015, STAT traMADol 2020-0 Yes [id number] 100mg Take 1 Un you 100 mg 24 2-04 tablet by ity o f hr tablet 00:00: mouth [place] 00 daily. Medical Branch ondansetron 2020-0 Yes [id number] 4mg Take 1 [facility] 4 mg 2-04 tablet by ity of disintegrat 00:00: mouth [place] ing tablet 00 every 8 Medica l (eight) Branch hours as needed for Nausea and Vomiting (N/V). ondansetron 2020-0 Yes [id number] 4mg Take 1 [facility] 4 mg 2-04 tablet by ity of disintegrat 00:00: mouth [place] ing tablet 00 every 8 Medica l (eight) Branch hours as needed for Nausea and Vomiting (N/V). ondansetron 2020-0 Yes [id number] 4mg Take 1 [facility] 4 mg 2-04 tablet by ity of disintegrat 00:00: mouth [place] ing tablet 00 every 8 Medica l (eight) Branch hours as needed for Nausea and Vomiting (N/V). ondansetron 2020-0 Yes [id number] 4mg Take 1 [facility] 4 mg 2-04 tablet by ity of disintegrat 00:00: mouth [place] ing tablet 00 every 8 Medica l (eight) Branch hours as needed for Nausea and Vomiting (N/V). ondansetron 2020-0 Yes [id number] 4mg Take 1 [facility] 4 mg 2-04 tablet by ity of disintegrat 00:00: mouth [place] ing tablet 00 every 8 Medica l (eight) Branch hours as needed for Nausea and Vomiting (N/V). ondansetron 2020-0 Yes [id number] 4mg Take 1 [facility] 4 mg 2-04 tablet by ity of disintegrat 00:00: mouth [place] ing tablet 00 every 8 Medica l (eight) Branch hours as needed for Nausea and Vomiting (N/V). ondansetron 2020-0 Yes [id number] 4mg Take 1 [facility] 4 mg 2-04 tablet by ity of disintegrat 00:00: mouth [place] ing tablet 00 every 8 Medica l (eight) Branch hours as needed for Nausea and Vomiting (N/V). ondansetron 2020-0 Yes [id number] 4mg Take 1 [facility] 4 mg 2-04 tablet by ity of disintegrat 00:00: mouth [place] ing tablet 00 every 8 Medica l (eight) Branch hours as needed for Nausea and Vomiting (N/V). ondansetron 2020-0 Yes [id number] 4mg Take 1 [facility] 4 mg 2-04 tablet by ity of disintegrat 00:00: mouth [place] ing tablet 00 every 8 Medica l (eight) Branch hours as needed for Nausea and Vomiting (N/V). ondansetron 2020-0 Yes [id number] 4mg Take 1 [facility] 4 mg 2-04 tablet by ity of disintegrat 00:00: mouth [place] ing tablet 00 every 8 Medica l (eight) Branch hours as needed for Nausea and Vomiting (N/V). ondansetron 2020-0 Yes [id number] 4mg Take 1 [facility] 4 mg 2-04 tablet by ity of disintegrat 00:00: mouth [place] ing tablet 00 every 8 Medica l (eight) Branch hours as needed for Nausea and Vomiting (N/V). ondansetron 2020-0 Yes [id number] 4mg Take 1 [facility] 4 mg 2-04 tablet by ity of disintegrat 00:00: mouth [place] ing tablet 00 every 8 Medica l (eight) Branch hours as needed for Nausea and Vomiting (N/V). ondansetron 2020-0 Yes [id number] 4mg Take 1 [facility] 4 mg 2-04 tablet by ity of disintegrat 00:00: mouth [place] ing tablet 00 every 8 Medica l (eight) Branch hours as needed for Nausea and Vomiting (N/V). ondansetron 2020-0 Yes [id number] 4mg Take 1 [facility] 4 mg 2-04 tablet by ity of disintegrat 00:00: mouth [place] ing tablet 00 every 8 Medica l (eight) Branch hours as needed for Nausea and Vomiting (N/V). ondansetron 2020-0 Yes [id number] 4mg Take 1 [facility] 4 mg 2-04 tablet by ity of disintegrat 00:00: mouth [place] ing tablet 00 every 8 Medica l (eight) Branch hours as needed for Nausea and Vomiting (N/V). ondansetron 2020-0 Yes [id number] 4mg Take 1 [facility] 4 mg 2-04 tablet by ity of disintegrat 00:00: mouth [place] ing tablet 00 every 8 Medica l (eight) Branch hours as needed for Nausea and Vomiting (N/V). ondansetron 2020-0 Yes [id number] 4mg Take 1 [facility] 4 mg 2-04 tablet by ity of disintegrat 00:00: mouth [place] ing tablet 00 every 8 Medica l (eight) Branch hours as needed for Nausea and Vomiting (N/V). ondansetron 2020-0 Yes [id number] 4mg Take 1 [facility] 4 mg 2-04 tablet by ity of disintegrat 00:00: mouth [place] ing tablet 00 every 8 Medica l (eight) Branch hours as needed for Nausea and Vomiting (N/V). ondansetron 2020-0 Yes [id number] 4mg Take 1 [facility] 4 mg 2-04 tablet by ity of disintegrat 00:00: mouth [place] ing tablet 00 every 8 Medica l (eight) Branch hours as needed for Nausea and Vomiting (N/V). traMADol 2020-0 Yes [id number] 100mg Take 1 Un you 100 mg 24 2-04 tablet by ity o f hr tablet 00:00: mouth [place] 00 daily. Medical Branch ondansetron 2020-0 Yes [id number] 4mg Take 1 [facility] 4 mg 2-04 tablet by ity of disintegrat 00:00: mouth [place] ing tablet 00 every 8 Medica l (eight) Branch hours as needed for Nausea and Vomiting (N/V). traMADol 2020-0 Yes [id number] 100mg Take 1 Un you 100 mg 24 2-04 tablet by ity o f hr tablet 00:00: mouth [place] 00 daily. Medical Branch ondansetron 2020-0 Yes [id number] 4mg Take 1 [facility] 4 mg 2-04 tablet by ity of disintegrat 00:00: mouth [place] ing tablet 00 every 8 Medica l (eight) Branch hours as needed for Nausea and Vomiting (N/V). traMADol 2020-0 Yes [id number] 100mg Take 1 Un you 100 mg 24 2-04 tablet by ity o f hr tablet 00:00: mouth [place] 00 daily. Medical Branch ondansetron 2020-0 Yes [id number] 4mg Take 1 [facility] 4 mg 2-04 tablet by ity of disintegrat 00:00: mouth [place] ing tablet 00 every 8 Medica l (eight) Branch hours as needed for Nausea and Vomiting (N/V). traMADol 2020-0 Yes [id number] 100mg Take 1 Un you 100 mg 24 2-04 tablet by ity o f hr tablet 00:00: mouth [place] 00 daily. Medical Branch ondansetron 2020-0 Yes [id number] 4mg Take 1 [facility] 4 mg 2-04 tablet by ity of disintegrat 00:00: mouth [place] ing tablet 00 every 8 Medica l (eight) Branch hours as needed for Nausea and Vomiting (N/V). traMADol 2020-0 Yes [id number] 100mg Take 1 Un you 100 mg 24 2-04 tablet by ity o f hr tablet 00:00: mouth [place] 00 daily. Medical Branch ondansetron 2020-0 Yes [id number] 4mg Take 1 [facility] 4 mg 2-04 tablet by ity of disintegrat 00:00: mouth [place] ing tablet 00 every 8 Medica l (eight) Branch hours as needed for Nausea and Vomiting (N/V). ondansetron 2020- No [id number] 4mg Take 1 [facility] 4 mg 2-04 04-05 tablet by ity of disintegrat 00:00: 00:00 mouth [place] tablet 00 :00 every 8 Medica l (eight) Branch hours as needed for Nausea and Vomiting (N/V). ondansetron No [id number] 4mg Take 1 [facility] 4 mg 2-04 04-05 tablet by ity of disintegrat 00:00: 00:00 mouth [place] tablet 00 :00 every 8 Medica l (eight) Branch hours as needed for Nausea and Vomiting (N/V). traMADol No [id number] 100mg Take 1 U nivers 100 mg 24 2-04 10-26 tablet by ity of hr tablet 00:00: [...] 44 (three) Medical times Branch daily. QUEtiapine 2019-1 Yes 300mg Take 300 Un you (SEROQUEL) [...] 44 daily. Medical Branch ondansetron 2018-04 Yes [id number] 4mg Take 1 [facility] 4 mg tablet 0-26 tablet by ity of 00:00: mouth [place] 00 every 8 Medical (eight) Branch hours as needed for Nausea and Vomiting (N/V). ondansetron 2018-04 Yes [id number] 4mg Take 1 [facility] 4 mg tablet 0-26 tablet by ity of 00:00: mouth [place] 00 every 8 Medical (eight) Branch hours as needed for Nausea and Vomiting (N/V). ondansetron 2018-04 Yes [id number] 4mg Take 1 [facility] 4 mg tablet 0-26 tablet by ity of 00:00: mouth [place] 00 every 8 Medical (eight) Branch hours as needed for Nausea and Vomiting (N/V). ondansetron 2018-04 Yes [id number] 4mg Take 1 [facility] 4 mg tablet 0-26 tablet by ity of 00:00: mouth [place] 00 every 8 Medical (eight) Branch hours as needed for Nausea and Vomiting (N/V). ondansetron 2018-04 Yes [id number] 4mg Take 1 [facility] 4 mg tablet 0-26 tablet by ity of 00:00: mouth [place] 00 every 8 Medical (eight) Branch hours as needed for Nausea and Vomiting (N/V). ondansetron 2018-04 Yes [id number] 4mg Take 1 [facility] 4 mg tablet 0-26 tablet by ity of 00:00: mouth [place] 00 every 8 Medical (eight) Branch hours as needed for Nausea and Vomiting (N/V). ondansetron 2018-04 2020- No [id number] 4mg Take 1 Univers 4 mg tablet 0-26 10-26 tablet by it y of 00:00: 00:00 mouth [place] 00 :00 every 8 Medical (eight) Branch hours as needed for Nausea and Vomiting (N/V). losartan Yes [id number] 100mg Take 1 Un you 100 mg 9-23 tablet by ity of tablet 00:00: mouth [place] 00 daily. Medical Branch losartan Yes [id number] 100mg Take 1 Un you 100 mg 9-23 tablet by ity of tablet 00:00: mouth [place] 00 daily. Medical Branch losartan 2018- Yes [id number] 100mg Take 1 Un you 100 mg 9-23 tablet by ity of tablet 00:00: mouth [place] 00 daily. Medical Branch losartan 2018-0 Yes [id number] 100mg Take 1 Un you 100 mg 9-23 tablet by ity of tablet 00:00: mouth [place] 00 daily. Medical Branch losartan 2018-0 Yes [id number] 100mg Take 1 Un you 100 mg 9-23 tablet by ity of tablet 00:00: mouth [place] 00 daily. Medical Branch losartan 2019-0 Yes [id number] 100mg Take 1 Un you 100 mg 9-23 tablet by ity of tablet 00:00: mouth [place] 00 daily. Medical Branch losartan 2019-0 Yes [id number] 100mg Take 1 Un you 100 mg 9-23 tablet by ity of tablet 00:00: mouth [place] 00 daily. Medical Branch losartan 2019-0 Yes [id number] 100mg Take 1 Un you 100 mg 9-23 tablet by ity of tablet 00:00: mouth [place] 00 daily. Medical Branch losartan 2019-0 Yes [id number] 100mg Take 1 Un you 100 mg 9-23 tablet by ity of tablet 00:00: mouth [place] 00 daily. Medical Branch losartan 2018-0 Yes [id number] 100mg Take 1 Un you 100 mg 9-23 tablet by ity of tablet 00:00: mouth [place] 00 daily. Medical Branch losartan 2019-0 Yes [id number] 100mg Take 1 Un you 100 mg 9-23 tablet by ity of tablet 00:00: mouth [place] 00 daily. Medical Branch losartan 2019-0 Yes [id number] 100mg Take 1 Un you 100 mg 9-23 tablet by ity of tablet 00:00: mouth [place] 00 daily. Medical Branch losartan 2018-0 Yes [id number] 100mg Take 1 Un you 100 mg 9-23 tablet by ity of tablet 00:00: mouth [place] 00 daily. Medical Branch losartan 2018-0 Yes [id number] 100mg Take 1 Un you 100 mg 9-23 tablet by ity of tablet 00:00: mouth [place] 00 daily. Medical Branch losartan 2018-0 Yes [id number] 100mg Take 1 Un you 100 mg 9-23 tablet by ity of tablet 00:00: mouth [place] 00 daily. Medical Branch losartan 2018-0 Yes [id number] 100mg Take 1 Un you 100 mg 9-23 tablet by ity of tablet 00:00: mouth [place] 00 daily. Medical Branch losartan 2018-0 Yes [id number] 100mg Take 1 Un you 100 mg 9-23 tablet by ity of tablet 00:00: mouth [place] 00 daily. Medical Branch losartan 2019-0 Yes [id number] 100mg Take 1 Un you 100 mg 9-23 tablet by ity of tablet 00:00: mouth [place] 00 daily. Medical Branch losartan 2018-0 Yes [id number] 100mg Take 1 Un you 100 mg 9-23 tablet by ity of tablet 00:00: mouth [place] 00 daily. Medical Branch losartan 2019-0 Yes [id number] 100mg Take 1 Un you 100 mg 9-23 tablet by ity of tablet 00:00: mouth [place] 00 daily. Medical Branch losartan 2019-0 Yes [id number] 100mg Take 1 Un you 100 mg 9-23 tablet by ity of tablet 00:00: mouth [place] 00 daily. Medical Branch losartan 2019-0 Yes [id number] 100mg Take 1 Un you 100 mg 9-23 tablet by ity of tablet 00:00: mouth [place] 00 daily. Medical Branch losartan 2019-0 Yes [id number] 100mg Take 1 Un you 100 mg 9-23 tablet by ity of tablet 00:00: mouth [place] 00 daily. Medical Branch losartan 2019-0 Yes [id number] 100mg Take 1 Un you 100 mg - tablet by ity of tablet 00:00: mouth [place] 00 daily. Medical Branch losartan 2018-0 2020- No [id number] 100mg Take 1 U nivers 100 mg -05 08-05 tablet by ity of tablet 00:00: 00:00 mouth [place] 00 :00 daily. Medical Branch losartan 2018-2020- No [id number] 100mg Take 1 U nivers 100 mg -05 08-05 tablet by ity of tablet 00:00: 00:00 mouth [place] 00 :00 daily. Medical Branch traMADol 50 Yes [id number] 1 by mouth Univers mg tablet 12-05 [id number] every 4-6 ity of 00:00: hours as [place] 00 needed for Medical pain Branch traMADol 50 2018- Yes [id number] 1 by mouth [facility] mg tablet 12-05 [id number] every 4-6 ity of 00:00: hours as [place] 00 needed for Medical pain Branch traMADol 50 2018- Yes [id number] 1 by mouth [facility] mg tablet 12-05 [id number] every 4-6 ity of 00:00: hours as [place] 00 needed for Medical pain Branch traMADol 50 2018- Yes [id number] 1 by mouth Univers mg tablet 12-05 [id number] every 4-6 ity of 00:00: hours as [place] 00 needed for Medical pain Branch traMADol 50 2018- Yes [id number] 1 by mouth [facility] mg tablet 12-05 [id number] every 4-6 ity of 00:00: hours as [place] 00 needed for Medical pain Branch traMADol 50 2018- Yes [id number] 1 by mouth [facility] mg tablet 12-05 [id number] every 4-6 ity of 00:00: hours as [place] 00 needed for Medical pain Branch traMADol 50 2019- Yes [id number] 1 by mouth [facility] mg tablet 8- [id number] every 4-6 ity of 00:00: hours as [place] 00 needed for Medical pain Branch traMADol 50 2019-0 Yes [id number] 1 by mouth [facility] mg tablet 8- [id number] every 4-6 ity of 00:00: hours as [place] 00 needed for Medical pain Branch traMADol 50 2019- Yes [id number] 1 by mouth [facility] mg tablet 8- [id number] every 4-6 ity of 00:00: hours as [place] 00 needed for Medical pain Branch traMADol 50 2019-0 Yes [id number] 1 by mouth [facility] mg tablet 12-05 [id number] every 4-6 ity of 00:00: hours as [place] 00 needed for Medical pain Branch traMADol 50 2019-0 Yes [id number] 1 by mouth [facility] mg tablet 12-05 [id number] every 4-6 ity of 00:00: hours as [place] 00 needed for Medical pain Branch traMADol 50 2019-0 Yes [id number] 1 by mouth Univers mg tablet 12-05 [id number] every 4-6 ity of 00:00: hours as [place] 00 needed for Medical pain Branch traMADol 50 2019-0 Yes [id number] 1 by mouth [facility] mg tablet 12-05 [id number] every 4-6 ity of 00:00: hours as [place] 00 needed for Medical pain Branch traMADol 50 2019-0 Yes [id number] 1 by mouth [facility] mg tablet 12-05 [id number] every 4-6 ity of 00:00: hours as [place] 00 needed for Medical pain Branch traMADol 50 2019-0 Yes [id number] 1 by mouth [facility] mg tablet 12-05 [id number] every 4-6 ity of 00:00: hours as [place] 00 needed for Medical pain Branch traMADol 50 2019-0 Yes [id number] 1 by mouth [facility] mg tablet 12-05 [id number] every 4-6 ity of 00:00: hours as [place] 00 needed for Medical pain Branch traMADol 50 2019-0 Yes [id number] 1 by mouth [facility] mg tablet 12-05 [id number] every 4-6 ity of 00:00: hours as [place] 00 needed for Medical pain Branch traMADol 50 2019-0 2020- No [id number] 1 by mouth [facility] mg tablet 12-05 [id number] every 4-6 it y of 00:00: 00:00 [...] 22:26 ONCE, 1 [place] 00 :00 dose, [facility] Medical 12/01/18 at Branch 1745, Routine ketorolac 2019- 2019- No 30mg 30 mg, Unive rs (TORADOL) 12-01 Slow IV ity of injection 20:45: 19:47 Push, [place] 30 mg 00 :00 ONCE, 1 Medical dose, [facility] Branch 12/01/18 at 1545, [place]
Fa culty [...] s mg tablet 24 Medical Branch divalproex [id number] Yes 125mg Take 125 Un you (DEPAKOTE) [...] [place] 24 times Medical daily. Branch LOSARTAN 0 Yes 100mg Take 100 Univ ers POTASSIUM 8-05 mg by ity of (LOSARTAN 21:38: mouth [place] ORAL) 24 daily. Medical Branch gabapentin 2019 Yes 300mg Take 300 Un you (NEURONTIN) 8-05 mg by ity of 300 mg 21:38: mouth 2 [place] capsule 24 (two) Medical times Branch daily. QUEtiapine 2019 Yes 100mg Take 100 Un you (SEROQUEL) [...] 24 (two) Medical times Branch daily. QUEtiapine 2019 Yes 100mg Take 100 Un you (SEROQUEL) [...] [place] 24 times Medical daily. Branch pantoprazol Yes 40mg 40 mg, Univ ers e 8-05 Oral, BID, ity of (PROTONIX) 13:00: First dose [place] EC tablet 00 on Mon Medical 40 mg 11/17/18 at Branch 0800, Until Discontinu ed, Routine FENTanyl PF 2019- No 75ug 75 mcg, Un you (SUBLIMAZE 8 08-05 Slow IV ity o f (PF)) 02:15: 01:11 Push, [place] injection 00 :00 ONCE, 1 Medical 75 mcg dose, [place] Branch 11/16/18 at 2115, [place] pantoprazol Yes [id number] 40mg Take 1 Univers e 40 mg EC 8-05 tablet by ity of tablet 00:00: mouth 2 [place] 00 (two) Medical times Branch daily. proMETHazin Yes [id number] 25mg Take 1 Univers e 25 mg 8-05 tablet by ity of tablet 00:00: mouth [place] 00 every 6 Medical (six) Branch hours as needed for N/V alternatin g with Ondansetro n. HYDROcodone Yes [id number] 1{tbl} Take 1 Univers -acetaminop 8-05 tablet by ity of hen 7.5-325 00:00: mouth [place] mg per 00 every 6 Medical tablet (six) Branch hours as needed (Pain scal 7-10). pantoprazol Yes [id number] 40mg Take 1 Univers e 40 mg EC 8-05 tablet by ity of tablet 00:00: mouth 2 [place] 00 (two) Medical times Branch daily. proMETHazin Yes [id number] 25mg Take 1 Univers e 25 mg 8-05 tablet by ity of tablet 00:00: mouth [place] 00 every 6 Medical (six) Branch hours as needed for N/V alternatin g with Ondansetro n. HYDROcodone Yes [id number] 1{tbl} Take 1 Univers -acetaminop 8-05 tablet by ity of hen 7.5-325 00:00: mouth [place] mg per 00 every 6 Medical tablet (six) Branch hours as needed (Pain scal 7-10). pantoprazol Yes [id number] 40mg Take 1 Univers e 40 mg EC 8-05 tablet by ity of tablet 00:00: mouth 2 [place] 00 (two) Medical times Branch daily. proMETHazin Yes [id number] 25mg Take 1 Univers e 25 mg 8-05 tablet by ity of tablet 00:00: mouth [place] 00 every 6 Medical (six) Branch hours as needed for N/V alternatin g with Ondansetro n. HYDROcodone Yes [id number] 1{tbl} Take 1 Univers -acetaminop 8-05 tablet by ity of hen 7.5-325 00:00: mouth [place] mg per 00 every 6 Medical tablet (six) Branch hours as needed (Pain scal 7-10). pantoprazol Yes [id number] 40mg Take 1 Univers e 40 mg EC 8-05 tablet by ity of tablet 00:00: mouth 2 00 (two) Medical times Branch daily. proMETHazin Yes [id number] 25mg Take 1 Univers e 25 mg 8-05 tablet by ity of tablet 00:00: mouth [place] 00 every 6 Medical (six) Branch hours as needed for N/V alternatin g with Ondansetro n. HYDROcodone Yes [id number] 1{tbl} Take 1 [facility] -acet[facility]-05 tablet [facility] 7.5-325 00:00: mouth [place] mg per 00 every 6 Medical tablet (six) Branch hours as needed (Pain scal 7-10). pantoprazol Yes [id number] 40mg Take 1 [facility] 40 mg EC 8-05 tablet by [facility] tablet 00:00: mouth 2 [place] 00 (two) Medical times Branch daily. proMETHazin Yes [id number] 25mg Take 1 [facility] 25 mg 8-05 tablet by [facility] tablet 00:00: mouth [place] 00 every 6 Medical (six) Branch hours as needed for N/V alternatin g with Ondansetro n. HYDROcodone 2018- Yes [id number] 1{tbl} Take 1 [facility] -acetaminop 8-05 tablet by [facility] 7.5-325 00:00: mouth [place] mg per 00 every 6 Medical tablet (six) Branch hours as needed (Pain scal 7-10). pantoprazol 2018- Yes [id number] 40mg Take 1 [facility] 40 mg EC 8-05 tablet by [facility] tablet 00:00: mouth 2 [place] 00 (two) Medical times Branch daily. proMETHazin Yes [id number] 25mg Take 1 [facility] 25 mg 8-05 tablet by [facility] tablet 00:00: mouth [place] 00 every 6 Medical (six) Branch hours as needed for N/V alternatin g with Ondansetro n. HYDROcodone Yes [id number] 1{tbl} Take 1 [facility] -acetaminop 8-05 tablet by [facility] 7.5-325 00:00: mouth [place] mg per 00 every 6 Medical tablet (six) Branch hours as needed (Pain scal 7-10). pantoprazol 2018- Yes [id number] 40mg Take 1 [facility] 40 mg EC 8-05 tablet by [facility] tablet 00:00: mouth 2 [place] 00 (two) Medical times Branch daily. proMETHazin Yes [id number] 25mg Take 1 [facility] 25 mg 8-05 tablet by [facility] tablet 00:00: mouth [place] 00 every 6 Medical (six) Branch hours as needed for N/V alternatin g with Ondansetro n. HYDROcodone Yes [id number] 1{tbl} Take 1 [facility] -acetaminop 8-05 tablet by [facility] 7.5-325 00:00: mouth [place] mg per 00 every 6 Medical tablet (six) Branch hours as needed (Pain scal 7-10). pantoprazol Yes [id number] 40mg Take 1 [facility] 40 mg EC 8-05 tablet by [facility] tablet 00:00: mouth 2 [place] 00 (two) Medical times Branch daily. proMETHazin 2018- Yes [id number] 25mg Take 1 [facility] 25 mg 8-05 tablet by [facility] tablet 00:00: mouth [place] 00 every 6 Medical (six) Branch hours as needed for N/V alternatin g with Ondansetro n. HYDROcodone 2018- Yes [id number] 1{tbl} Take 1 [facility] -acetaminop 8-05 tablet by [facility] 7.5-325 00:00: mouth [place] mg per 00 every 6 Medical tablet (six) Branch hours as needed (Pain scal 7-10). pantoprazol Yes [id number] 40mg Take 1 [facility] 40 mg EC 8-05 tablet by [facility] tablet 00:00: mouth 2 [place] 00 (two) Medical times Branch daily. proMETHazin Yes [id number] 25mg Take 1 [facility] 25 mg 8-05 tablet by [facility] tablet 00:00: mouth [place] 00 every 6 Medical (six) Branch hours as needed for N/V alternatin g with Ondansetro n. HYDROcodone Yes [id number] 1{tbl} Take 1 [facility] -acetaminop 8-05 tablet by [facility] 7.5-325 00:00: mouth [place] mg per 00 every 6 Medical tablet (six) Branch hours as needed (Pain scal 7-10). pantoprazol Yes [id number] 40mg Take 1 [facility] 40 mg EC 8-05 tablet by [facility] tablet 00:00: mouth 2 [place] 00 (two) Medical times Branch daily. proMETHazin Yes [id number] 25mg Take 1 [facility] 25 mg 8-05 tablet by [facility] tablet 00:00: mouth [place] 00 every 6 Medical (six) Branch hours as needed for N/V alternatin g with Ondansetro n. HYDROcodone Yes [id number] 1{tbl} Take 1 [facility] -acetaminop 8-05 tablet by [facility] 7.5-325 00:00: mouth [place] mg per 00 every 6 Medical tablet (six) Branch hours as needed (Pain scal 7-10). pantoprazol Yes [id number] 40mg Take 1 [facility] 40 mg EC 8-05 tablet by [facility] tablet 00:00: mouth 2 [place] 00 (two) Medical times Branch daily. proMETHazin Yes [id number] 25mg Take 1 [facility] 25 mg 8-05 tablet by [facility] tablet 00:00: mouth [place] 00 every 6 Medical (six) Branch hours as needed for N/V alternatin g with Ondansetro n. HYDROcodone Yes [id number] 1{tbl} Take 1 [facility] -acetaminop 8-05 tablet by [facility] 7.5-325 00:00: mouth [place] mg per 00 every 6 Medical tablet (six) Branch hours as needed (Pain scal 7-10). pantoprazol Yes [id number] 40mg Take 1 [facility] 40 mg EC 8-05 tablet by [facility] tablet 00:00: mouth 2 [place] 00 (two) Medical times Branch daily. proMETHazin Yes [id number] 25mg Take 1 [facility] 25 mg 8-05 tablet by [facility] tablet 00:00: mouth [place] 00 every 6 Medical (six) Branch hours as needed for N/V alternatin g with Ondansetro n. HYDROcodone Yes [id number] 1{tbl} Take 1 [facility] -acetaminop 8-05 tablet by [facility] 7.5-325 00:00: mouth [place] mg per 00 every 6 Medical tablet (six) Branch hours as needed (Pain scal 7-10). pantoprazol Yes [id number] 40mg Take 1 [facility] 40 mg EC 8-05 tablet by [facility] tablet 00:00: mouth 2 [place] 00 (two) Medical times Branch daily. proMETHazin Yes [id number] 25mg Take 1 [facility] 25 mg 8-05 tablet by [facility] tablet 00:00: mouth [place] 00 every 6 Medical (six) Branch hours as needed for N/V alternatin g with Ondansetro n. HYDROcodone Yes [id number] 1{tbl} Take 1 [facility] -acetaminop 8-05 tablet by [facility] 7.5-325 00:00: mouth [place] mg per 00 every 6 Medical tablet (six) Branch hours as needed (Pain scal 7-10). pantoprazol Yes [id number] 40mg Take 1 [facility] 40 mg EC 8-05 tablet by [facility] tablet 00:00: mouth 2 [place] 00 (two) Medical times Branch daily. proMETHazin Yes [id number] 25mg Take 1 [facility] 25 mg 8-05 tablet by [facility] tablet 00:00: mouth [place] 00 every 6 Medical (six) Branch hours as needed for N/V alternatin g with Ondansetro n. HYDROcodone Yes [id number] 1{tbl} Take 1 [facility] -acetaminop 8-05 tablet by [facility] 7.5-325 00:00: mouth [place] mg per 00 every 6 Medical tablet (six) Branch hours as needed (Pain scal 7-10). pantoprazol Yes [id number] 40mg Take 1 [facility] 40 mg EC 8-05 tablet by [facility] tablet 00:00: mouth 2 [place] 00 (two) Medical times Branch daily. proMETHazin Yes [id number] 25mg Take 1 [facility] 25 mg 8-05 tablet by [facility] tablet 00:00: mouth [place] 00 every 6 Medical (six) Branch hours as needed for N/V alternatin g with Ondansetro n. HYDROcodone Yes [id number] 1{tbl} Take 1 [facility] -acetaminop 8-05 tablet by [facility] 7.5-325 00:00: mouth [place] mg per 00 every 6 Medical tablet (six) Branch hours as needed (Pain scal 7-10). pantoprazol Yes [id number] 40mg Take 1 [facility] 40 mg EC 8-05 tablet by [facility] tablet 00:00: mouth 2 [place] 00 (two) Medical times Branch daily. proMETHazin Yes [id number] 25mg Take 1 [facility] 25 mg 8-05 tablet by [facility] tablet 00:00: mouth [place] 00 every 6 Medical (six) Branch hours as needed for N/V alternatin g with Ondansetro n. HYDROcodone Yes [id number] 1{tbl} Take 1 [facility] -acetaminop 8-05 tablet by [facility] 7.5-325 00:00: mouth [place] mg per 00 every 6 Medical tablet (six) Branch hours as needed (Pain scal 7-10). pantoprazol Yes [id number] 40mg Take 1 [facility] 40 mg EC 8-05 tablet by [facility] tablet 00:00: mouth 2 [place] 00 (two) Medical times Branch daily. proMETHazin Yes [id number] 25mg Take 1 [facility] 25 mg 8-05 tablet by [facility] tablet 00:00: mouth [place] 00 every 6 Medical (six) Branch hours as needed for N/V alternatin g with Ondansetro n. HYDROcodone Yes [id number] 1{tbl} Take 1 [facility] -acetaminop 8-05 tablet by [facility] 7.5-325 00:00: mouth [place] mg per 00 every 6 Medical tablet (six) Branch hours as needed (Pain scal 7-10). pantoprazol 2018- Yes [id number] 40mg Take 1 [facility] 40 mg EC 8-05 tablet by [facility] tablet 00:00: mouth 2 [place] 00 (two) Medical times Branch daily. proMETHazin Yes [id number] 25mg Take 1 [facility] 25 mg 8-05 tablet by [facility] tablet 00:00: mouth [place] 00 every 6 Medical (six) Branch hours as needed for N/V alternatin g with Ondansetro n. HYDROcodone Yes [id number] 1{tbl} Take 1 [facility] -acetaminop 8-05 tablet by [facility] 7.5-325 00:00: mouth [place] mg per 00 every 6 Medical tablet (six) Branch hours as needed (Pain scal 7-10). pantoprazol Yes [id number] 40mg Take 1 [facility] 40 mg EC 8-05 tablet by [facility] tablet 00:00: mouth 2 [place] 00 (two) Medical times Branch daily. proMETHazin Yes [id number] 25mg Take 1 [facility] 25 mg 8-05 tablet by [facility] tablet 00:00: mouth [place] 00 every 6 Medical (six) Branch hours as needed for N/V alternatin g with Ondansetro n. HYDROcodone Yes [id number] 1{tbl} Take 1 [facility] -acetaminop 8-05 tablet by [facility] 7.5-325 00:00: mouth [place] mg per 00 every 6 Medical tablet (six) Branch hours as needed (Pain scal 7-10). HYDROcodone 2018- Yes [id number] 1{tbl} Take 1 [facility] -acetaminop 8-05 tablet by [facility] 7.5-325 00:00: mouth [place] mg per 00 every 6 Medical tablet (six) Branch hours as needed (Pain scal 7-10). HYDROcodone 2018- Yes [id number] 1{tbl} Take 1 [facility] -acetaminop 8-05 tablet by [facility] 7.5-325 00:00: mouth [place] mg per 00 every 6 Medical tablet (six) Branch hours as needed (Pain scal 7-10). HYDROcodone Yes [id number] 1{tbl} Take 1 [facility] -acetaminop 8-05 tablet by [facility] 7.5-325 00:00: mouth [place] mg per 00 every 6 Medical tablet (six) Branch hours as needed (Pain scal 7-10). HYDROcodone Yes [id number] 1{tbl} Take 1 [facility] -acetaminop 8-05 tablet by [facility] 7.5-325 00:00: mouth [place] mg per 00 every 6 Medical tablet (six) Branch hours as needed (Pain scal 7-10). HYDROcodone Yes [id number] 1{tbl} Take 1 [facility] -acetaminop 8-05 tablet by [facility] hen 7.5-325 00:00: mouth [place] mg per 00 every 6 Medical tablet (six) Branch hours as needed (Pain scal 7-10). HYDROcodone Yes [id number] 1{tbl} Take 1 [facility] -acetaminop 8-05 tablet by [facility] 7.5-325 00:00: mouth [place] mg per 00 every 6 Medical tablet (six) Branch hours as needed (Pain scal 7-10). HYDROcodone Yes [id number] 1{tbl} Take 1 [facility] -acetaminop 8-05 tablet by [facility] 7.5-325 00:00: mouth [place] mg per 00 every 6 Medical tablet (six) Branch hours as needed (Pain scal 7-10). HYDROcodone Yes [id number] 1{tbl} Take 1 [facility] -acetaminop 8-05 tablet by [facility] 7.5-325 00:00: mouth [place] mg per 00 every 6 Medical tablet (six) Branch hours as needed (Pain scal 7-10). HYDROcodone Yes [id number] 1{tbl} Take 1 [facility] -acetaminop 8-05 tablet by [facility] hen 7.5-325 00:00: mouth [place] mg per 00 every 6 Medical tablet (six) Branch hours as needed (Pain scal 7-10). HYDROcodone Yes [id number] 1{tbl} Take 1 [facility] -acetaminop 8-05 tablet by [facility] 7.5-325 00:00: mouth [place] mg per 00 every 6 Medical tablet (six) Branch hours as needed (Pain scal 7-10). HYDROcodone Yes [id number] 1{tbl} Take 1 [facility] -acetaminop 8-05 tablet by [facility] hen 7.5-325 00:00: mouth [place] mg per 00 every 6 Medical tablet (six) Branch hours as needed (Pain scal 7-10). HYDROcodone Yes [id number] 1{tbl} Take 1 [facility] -acetaminop 8-05 tablet by [facility] hen 7.5-325 00:00: mouth [place] mg per 00 every 6 Medical tablet (six) Branch hours as needed (Pain scal 7-10). HYDROcodone Yes [id number] 1{tbl} Take 1 [facility] -acetaminop 8-05 tablet by [facility] 7.5-325 00:00: mouth [place] mg per 00 every 6 Medical tablet (six) Branch hours as needed (Pain scal 7-10). HYDROcodone Yes [id number] 1{tbl} Take 1 [facility] -acetaminop 8-05 tablet by [facility] hen 7.5-325 00:00: mouth [place] mg per 00 every 6 Medical tablet (six) Branch hours as needed (Pain scal 7-10). HYDROcodone Yes [id number] 1{tbl} Take 1 [facility] -acetaminop 8-05 tablet by [facility] hen 7.5-325 00:00: mouth [place] mg per 00 every 6 Medical tablet (six) Branch hours as needed (Pain scal 7-10). HYDROcodone Yes [id number] 1{tbl} Take 1 [facility] -acetaminop 8-05 tablet by [facility] 7.5-325 00:00: mouth [place] mg per 00 every 6 Medical tablet (six) Branch hours as needed (Pain scal 7-10). HYDROcodone Yes [id number] 1{tbl} Take 1 [facility] -acetaminop 8-05 tablet by [facility] hen 7.5-325 00:00: mouth [place] mg per 00 every 6 Medical tablet (six) Branch hours as needed (Pain scal 7-10). HYDROcodone Yes [id number] 1{tbl} Take 1 [facility] -acetaminop 8-05 tablet by [facility] hen 7.5-325 00:00: mouth [place] mg per 00 every 6 Medical tablet (six) Branch hours as needed (Pain scal 7-10). HYDROcodone Yes [id number] 1{tbl} Take 1 [facility] -acetaminop 8-05 tablet by [facility] 7.5-325 00:00: mouth [place] mg per 00 every 6 Medical tablet (six) Branch hours as needed (Pain scal 7-10). HYDROcodone Yes [id number] 1{tbl} Take 1 [facility] -acetaminop 8-05 tablet by [facility] 7.5-325 00:00: mouth [place] mg per 00 every 6 Medical tablet (six) Branch hours as needed (Pain scal 7-10). HYDROcodone Yes [id number] 1{tbl} Take 1 [facility] -acetaminop 8-05 tablet by [facility] hen 7.5-325 00:00: mouth [place] mg per 00 every 6 Medical tablet (six) Branch hours as needed (Pain scal 7-10). HYDROcodone Yes [id number] 1{tbl} Take 1 [facility] -acetaminop 8-05 tablet by [facility] 7.5-325 00:00: mouth [place] mg per 00 every 6 Medical tablet (six) Branch hours as needed (Pain scal 7-10). HYDROcodone Yes [id number] 1{tbl} Take 1 [facility] -acetaminop 8-05 tablet by [facility] 7.5-325 00:00: mouth [place] mg per 00 every 6 Medical tablet (six) Branch hours as needed (Pain scal 7-10). pantoprazol Yes [id number] 40mg Take 1 [facility] 40 mg EC 8-05 tablet by [facility] tablet 00:00: mouth 2 [place] 00 (two) Medical times Branch daily. ondansetron Yes [id number] 4mg Take 1 [facility] 4 mg tablet 8-05 tablet by [facility] of 00:00: mouth [place] 00 every 8 Medical (eight) Branch hours as needed for Nausea and Vomiting (N/V). proMETHazin Yes [id number] 25mg Take 1 [facility] 25 mg 8-05 tablet by [facility] tablet 00:00: mouth [place] 00 every 6 Medical (six) Branch hours as needed for N/V alternatin g with Ondansetro n. HYDROcodone Yes [id number] 1{tbl} Take 1 [facility] -acetaminop 8-05 tablet by [facility] hen 7.5-325 00:00: mouth [place] mg per 00 every 6 Medical tablet (six) Branch hours as needed (Pain scal 7-10). pantoprazol Yes [id number] 40mg Take 1 [facility] 40 mg EC 8-05 tablet by [facility] tablet 00:00: mouth 2 [place] 00 (two) Medical times Branch daily. ondansetron Yes [id number] 4mg Take 1 [facility] 4 mg tablet 8-05 tablet by [facility] of 00:00: mouth [place] 00 every 8 Medical (eight) Branch hours as needed for Nausea and Vomiting (N/V). proMETHazin Yes [id number] 25mg Take 1 [facility] 25 mg 8-05 tablet by [facility] tablet 00:00: mouth [place] 00 every 6 Medical (six) Branch hours as needed for N/V alternatin g with Ondansetro n. HYDROcodone Yes [id number] 1{tbl} Take 1 [facility] -acetaminop 8-05 tablet by [facility] hen 7.5-325 00:00: mouth [place] mg per 00 every 6 Medical tablet (six) Branch hours as needed (Pain scal 7-10). pantoprazol Yes [id number] 40mg Take 1 [facility] 40 mg EC 8-05 tablet by [facility] tablet 00:00: mouth 2 [place] 00 (two) Medical times Branch daily. ondansetron Yes [id number] 4mg Take 1 [facility] 4 mg tablet 8-05 tablet by [facility] of 00:00: mouth [place] 00 every 8 Medical (eight) Branch hours as needed for Nausea and Vomiting (N/V). proMETHazin 2018- Yes [id number] 25mg Take 1 [facility] 25 mg 8-05 tablet by [facility] tablet 00:00: mouth [place] 00 every 6 Medical (six) Branch hours as needed for N/V alternatin g with Ondansetro n. HYDROcodone Yes [id number] 1{tbl} Take 1 [facility] -acetaminop 8-05 tablet by [facility] hen 7.5-325 00:00: mouth [place] mg per 00 every 6 Medical tablet (six) Branch hours as needed (Pain scal 7-10). pantoprazol 2018-0 Yes [id number] 40mg Take 1 [facility] 40 mg EC 8-05 tablet by [facility] tablet 00:00: mouth 2 [place] 00 (two) Medical times Branch daily. ondansetron 2018- Yes [id number] 4mg Take 1 [facility] 4 mg tablet 8-05 tablet by [facility] of 00:00: mouth [place] 00 every 8 Medical (eight) Branch hours as needed for Nausea and Vomiting (N/V). proMETHazin 2018- Yes [id number] 25mg Take 1 [facility] 25 mg 8-05 tablet by [facility] tablet 00:00: mouth [place] 00 every 6 Medical (six) Branch hours as needed for N/V alternatin g with Ondansetro n. HYDROcodone 2018- Yes [id number] 1{tbl} Take 1 [facility] -acetaminop 8-05 tablet by [facility] hen 7.5-325 00:00: mouth [place] mg per 00 every 6 Medical tablet (six) Branch hours as needed (Pain scal 7-10). pantoprazol Yes [id number] 40mg Take 1 [facility] 40 mg EC 8-05 tablet by [facility] tablet 00:00: mouth 2 [place] 00 (two) Medical times Branch daily. ondansetron 2018- Yes [id number] 4mg Take 1 [facility] 4 mg tablet 8-05 tablet by [facility] of 00:00: mouth [place] 00 every 8 Medical (eight) Branch hours as needed for Nausea and Vomiting (N/V). proMETHazin 2019- Yes [id number] 25mg Take 1 [facility] 25 mg 8-05 tablet by [facility] tablet 00:00: mouth [place] 00 every 6 Medical (six) Branch hours as needed for N/V alternatin g with Ondansetro n. HYDROcodone 2019-0 Yes [id number] 1{tbl} Take 1 [facility] -acetaminop 8-05 tablet by [facility] hen 7.5-325 00:00: mouth [place] mg per 00 every 6 Medical tablet (six) Branch hours as needed (Pain scal 7-10). pantoprazol 2019-0 Yes [id number] 40mg Take 1 [facility] 40 mg EC 8-05 tablet by [facility] tablet 00:00: mouth 2 [place] 00 (two) Medical times Branch daily. ondansetron 2018- Yes [id number] 4mg Take 1 [facility] 4 mg tablet 8-05 tablet by [facility] of 00:00: mouth [place] 00 every 8 Medical (eight) Branch hours as needed for Nausea and Vomiting (N/V). proMETHazin 2019- Yes [id number] 25mg Take 1 [facility] 25 mg 8-05 tablet by [facility] tablet 00:00: mouth [place] 00 every 6 Medical (six) Branch hours as needed for N/V alternatin g with Ondansetro n. HYDROcodone 2018- Yes [id number] 1{tbl} Take 1 [facility] -acetaminop 8-05 tablet by [facility] hen 7.5-325 00:00: mouth [place] mg per 00 every 6 Medical tablet (six) Branch hours as needed (Pain scal 7-10). pantoprazol Yes [id number] 40mg Take 1 [facility] 40 mg EC 8-05 tablet by [facility] tablet 00:00: mouth 2 [place] 00 (two) Medical times Branch daily. ondansetron Yes [id number] 4mg Take 1 [facility] 4 mg tablet 8-05 tablet by [facility] of 00:00: mouth [place] 00 every 8 Medical (eight) Branch hours as needed for Nausea and Vomiting (N/V). proMETHazin 2018- Yes [id number] 25mg Take 1 [facility] 25 mg 8-05 tablet by [facility] tablet 00:00: mouth [place] 00 every 6 Medical (six) Branch hours as needed for N/V alternatin g with Ondansetro n. HYDROcodone 2018- Yes [id number] 1{tbl} Take 1 [facility] -acetaminop 8-05 tablet by [facility] hen 7.5-325 00:00: mouth [place] mg per 00 every 6 Medical tablet (six) Branch hours as needed (Pain scal 7-10). pantoprazol 2018-0 Yes [id number] 40mg Take 1 [facility] 40 mg EC 8-05 tablet by [facility] tablet 00:00: mouth 2 [place] 00 (two) Medical times Branch daily. ondansetron 2018- Yes [id number] 4mg Take 1 [facility] 4 mg tablet 8-05 tablet by [facility] of 00:00: mouth [place] 00 every 8 Medical (eight) Branch hours as needed for Nausea and Vomiting (N/V). proMETHazin 2019-0 Yes [id number] 25mg Take 1 [facility] 25 mg 8-05 tablet by [facility] tablet 00:00: mouth [place] 00 every 6 Medical (six) Branch hours as needed for N/V alternatin g with Ondansetro n. HYDROcodone 2019- Yes [id number] 1{tbl} Take 1 [facility] -acetaminop 8-05 tablet by [facility] hen 7.5-325 00:00: mouth [place] mg per 00 every 6 Medical tablet (six) Branch hours as needed (Pain scal 7-10). pantoprazol 2018-0 Yes [id number] 40mg Take 1 [facility] 40 mg EC 8-05 tablet by [facility] tablet 00:00: mouth 2 [place] 00 (two) Medical times Branch daily. ondansetron 2018- Yes [id number] 4mg Take 1 [facility] 4 mg tablet 8-05 tablet by [facility] of 00:00: mouth [place] 00 every 8 Medical (eight) Branch hours as needed for Nausea and Vomiting (N/V). proMETHazin 2018-0 Yes [id number] 25mg Take 1 [facility] 25 mg 8-05 tablet by [facility] tablet 00:00: mouth [place] 00 every 6 Medical (six) Branch hours as needed for N/V alternatin g with Ondansetro n. HYDROcodone 2018- Yes [id number] 1{tbl} Take 1 [facility] -acetaminop 8-05 tablet by [facility] hen 7.5-325 00:00: mouth [place] mg per 00 every 6 Medical tablet (six) Branch hours as needed (Pain scal 7-10). pantoprazol 2019-0 Yes [id number] 40mg Take 1 [facility] 40 mg EC 8-05 tablet by [facility] tablet 00:00: mouth 2 [place] 00 (two) Medical times Branch daily. ondansetron 2019-0 Yes [id number] 4mg Take 1 [facility] 4 mg tablet 8-05 tablet by [facility] of 00:00: mouth [place] 00 every 8 Medical (eight) Branch hours as needed for Nausea and Vomiting (N/V). proMETHazin 2019-0 Yes [id number] 25mg Take 1 [facility] 25 mg 8-05 tablet by [facility] tablet 00:00: mouth [place] 00 every 6 Medical (six) Branch hours as needed for N/V alternatin g with Ondansetro n. HYDROcodone Yes [id number] 1{tbl} Take 1 [facility] -acetaminop 8-05 tablet by [facility] hen 7.5-325 00:00: mouth [place] mg per 00 every 6 Medical tablet (six) Branch hours as needed (Pain scal 7-10). pantoprazol Yes [id number] 40mg Take 1 [facility] 40 mg EC 8-05 tablet by [facility] tablet 00:00: mouth 2 [place] 00 (two) Medical times Branch daily. ondansetron Yes [id number] 4mg Take 1 [facility] 4 mg tablet 8-05 tablet by [facility] of 00:00: mouth [place] 00 every 8 Medical (eight) Branch hours as needed for Nausea and Vomiting (N/V). proMETHazin Yes [id number] 25mg Take 1 [facility] 25 mg 8-05 tablet by [facility] tablet 00:00: mouth [place] 00 every 6 Medical (six) Branch hours as needed for N/V alternatin g with Ondansetro n. HYDROcodone Yes [id number] 1{tbl} Take 1 [facility] -acetaminop 8-05 tablet by [facility] hen 7.5-325 00:00: mouth [place] mg per 00 every 6 Medical tablet (six) Branch hours as needed (Pain scal 7-10). pantoprazol Yes [id number] 40mg Take 1 [facility] 40 mg EC 8-05 tablet by [facility] tablet 00:00: mouth 2 [place] 00 (two) Medical times Branch daily. ondansetron Yes [id number] 4mg Take 1 [facility] 4 mg tablet 8-05 tablet by [facility] of 00:00: mouth [place] 00 every 8 Medical (eight) Branch hours as needed for Nausea and Vomiting (N/V). proMETHazin 2018- Yes [id number] 25mg Take 1 [facility] 25 mg 8-05 tablet by [facility] tablet 00:00: mouth [place] 00 every 6 Medical (six) Branch hours as needed for N/V alternatin g with Ondansetro n. HYDROcodone 2019-0 Yes [id number] 1{tbl} Take 1 [facility] -acetaminop 8-05 tablet by [facility] hen 7.5-325 00:00: mouth [place] mg per 00 every 6 Medical tablet (six) Branch hours as needed (Pain scal 7-10). pantoprazol 2018- Yes [id number] 40mg Take 1 [facility] 40 mg EC 8-05 tablet by [facility] tablet 00:00: mouth 2 [place] 00 (two) Medical times Branch daily. ondansetron 2018- Yes [id number] 4mg Take 1 [facility] 4 mg tablet 8-05 tablet by [facility] of 00:00: mouth [place] 00 every 8 Medical (eight) Branch hours as needed for Nausea and Vomiting (N/V). proMETHazin 2018- Yes [id number] 25mg Take 1 [facility] 25 mg 8-05 tablet by [facility] tablet 00:00: mouth [place] 00 every 6 Medical (six) Branch hours as needed for N/V alternatin g with Ondansetro n. HYDROcodone 2018- Yes [id number] 1{tbl} Take 1 [facility] -acetaminop 8-05 tablet by [facility] hen 7.5-325 00:00: mouth [place] mg per 00 every 6 Medical tablet (six) Branch hours as needed (Pain scal 7-10). pantoprazol 2018- Yes [id number] 40mg Take 1 [facility] 40 mg EC 8-05 tablet by [facility] tablet 00:00: mouth 2 [place] 00 (two) Medical times Branch daily. ondansetron 2018- Yes [id number] 4mg Take 1 [facility] 4 mg tablet 8-05 tablet by [facility] of 00:00: mouth [place] 00 every 8 Medical (eight) Branch hours as needed for Nausea and Vomiting (N/V). proMETHazin 2019-0 Yes [id number] 25mg Take 1 [facility] 25 mg 8-05 tablet by [facility] tablet 00:00: mouth [place] 00 every 6 Medical (six) Branch hours as needed for N/V alternatin g with Ondansetro n. HYDROcodone 2019-0 Yes [id number] 1{tbl} Take 1 [facility] -acetaminop 8-05 tablet by [facility] hen 7.5-325 00:00: mouth [place] mg per 00 every 6 Medical tablet (six) Branch hours as needed (Pain scal 7-10). pantoprazol Yes [id number] 40mg Take 1 [facility] 40 mg EC 8-05 tablet by [facility] tablet 00:00: mouth 2 [place] 00 (two) Medical times Branch daily. ondansetron Yes [id number] 4mg Take 1 [facility] 4 mg tablet 8-05 tablet by [facility] of 00:00: mouth [place] 00 every 8 Medical (eight) Branch hours as needed for Nausea and Vomiting (N/V). proMETHazin Yes [id number] 25mg Take 1 [facility] 25 mg 8-05 tablet by [facility] tablet 00:00: mouth [place] 00 every 6 Medical (six) Branch hours as needed for N/V alternatin g with Ondansetro n. HYDROcodone Yes [id number] 1{tbl} Take 1 [facility] -acetaminop 8-05 tablet by [facility] hen 7.5-325 00:00: mouth [place] mg per 00 every 6 Medical tablet (six) Branch hours as needed (Pain scal 7-10). pantoprazol Yes [id number] 40mg Take 1 [facility] 40 mg EC 8-05 tablet by [facility] tablet 00:00: mouth 2 00 (two) Medical times Branch daily. proMETHazin Yes [id number] 25mg Take 1 [facility] 25 mg 8-05 tablet by [facility] tablet 00:00: mouth [place] 00 every 6 Medical (six) Branch hours as needed for N/V alternatin g with Ondansetro n. HYDROcodone Yes [id number] 1{tbl} Take 1 [facility] -acetaminop 8-05 tablet by [facility] hen 7.5-325 00:00: mouth [place] mg per 00 every 6 Medical tablet (six) Branch hours as needed (Pain scal 7-10). pantoprazol Yes [id number] 40mg Take 1 [facility] 40 mg EC 8-05 tablet by ity of tablet 00:00: mouth 2 [place] 00 (two) Medical times Branch daily. proMETHazin Yes [id number] 25mg Take 1 Univers e 25 mg 8-05 tablet by ity of tablet 00:00: mouth [place] 00 every 6 Medical (six) Branch hours as needed for N/V alternatin g with Ondansetro n. HYDROcodone Yes [id number] 1{tbl} Take 1 Univers -acetaminop 8-05 tablet by ity of hen 7.5-325 00:00: mouth [place] mg per 00 every 6 Medical tablet (six) Branch hours as needed (Pain scal 7-10). pantoprazol Yes [id number] 40mg Take 1 Univers e 40 mg EC 8-05 tablet by ity of tablet 00:00: mouth 2 [place] 00 (two) Medical times Branch daily. proMETHazin Yes [id number] 25mg Take 1 Univers e 25 mg 8-05 tablet by ity of tablet 00:00: mouth [place] 00 every 6 Medical (six) Branch hours as needed for N/V alternatin g with Ondansetro n. HYDROcodone Yes [id number] 1{tbl} Take 1 Univers -acetaminop 8-05 tablet by ity of hen 7.5-325 00:00: mouth [place] mg per 00 every 6 Medical tablet (six) Branch hours as needed (Pain scal 7-10). pantoprazol Yes [id number] 40mg Take 1 Univers e 40 mg EC 8-05 tablet by ity of tablet 00:00: mouth 2 [place] 00 (two) Medical times Branch daily. proMETHazin Yes [id number] 25mg Take 1 Univers e 25 mg 8-05 tablet by ity of tablet 00:00: mouth [place] 00 every 6 Medical (six) Branch hours as needed for N/V alternatin g with Ondansetro n. HYDROcodone Yes [id number] 1{tbl} Take 1 Univers -acetaminop 8-05 tablet by ity of hen 7.5-325 00:00: mouth [place] mg per 00 every 6 Medical tablet (six) Branch hours as needed (Pain scal 7-10). pantoprazol Yes [id number] 40mg Take 1 Univers e 40 mg EC 8-05 tablet by ity of tablet 00:00: mouth 2 [place] 00 (two) Medical times Branch daily. proMETHazin Yes [id number] 25mg Take 1 Univers e 25 mg 8-05 tablet by ity of tablet 00:00: mouth [place] 00 every 6 Medical (six) Branch hours as needed for N/V alternatin g with Ondansetro n. HYDROcodone Yes [id number] 1{tbl} Take 1 Univers -acetaminop 8-05 tablet by ity of hen 7.5-325 00:00: mouth [place] mg per 00 every 6 Medical tablet (six) Branch hours as needed (Pain scal 7-10). pantoprazol 2020- No [id number] 40mg Take 1 Univers e 40 mg EC 8-05 04-05 tablet by ity of tablet 00:00: 00:00 mouth 2 [place] 00 :00 (two) Medical times Branch daily. proMETHazin 2020- No [id number] 25mg Take 1 Univers e 25 mg 8-05 04-05 tablet by ity of tablet 00:00: 00:00 mouth [place] 00 :00 every 6 Medical (six) Branch hours as needed for N/V alternatin g with Ondansetro n. pantoprazol 2020- No [id number] 40mg Take 1 Univers e 40 mg EC 8-05 04-05 tablet by ity of tablet 00:00: 00:00 mouth 2 [place] 00 :00 (two) Medical times Branch daily. proMETHazin 2020- No [id number] 25mg Take 1 Univers e 25 mg 8-05 04-05 tablet by ity of tablet 00:00: 00:00 mouth [place] 00 :00 every 6 Medical (six) Branch hours as needed for N/V alternatin g with Ondansetro n. HYDROcodone Yes 1{tbl} 1 tablet, Univers -acetaminop 8-04 Oral, ity of hen (NORCO) 19:23: Q6HPRN, [place] as 10-325 mg 44 Starting Medica l tablet 1 11/16/18 Branc h tablet at 1423, Until Discontinu ed, Routine, Pain (scale 4-6), Pain (scale 7-10) citalopram Yes 10mg 10 mg, Unive rs (CELEXA) 8-04 Oral, ity of tablet 10 14:00: DAILY, [place] mg 00 First dose Medical on [place] [facility] 11/16/18 at 0900, Until Discontinu ed, Routine losartan Yes 100mg 100 mg, Unive rs (COZAAR) 8-04 Oral, ity of tablet 100 14:00: DAILY, [place] mg 00 First dose Medical on [facility] 11/16/18 at 0900, Until Discontinu ed lipase-prot 2018-0 Yes 3{capsu 3 capsule, Univers ease-amylas 11-16 le} Oral, TID ity of e (CREON) 13:00: MEALS, [place] 12,000-38,0 00 First dose Me dical 00 -60,000 on [facility] unit 11/16/18 at capsule 3 0800, capsule Until Discontinu ed FENTanyl PF 2019-0 2019- No 25ug 25 mcg, Un you (SUBLIMAZE 11-16- Slow IV ity o f (PF)) 12:38: 19:23 Push, [place] injection 00 :28 Q6HPRN, Medical 25 mcg Starting [facility] 11/16/18 at 0738, Until [place] 11/16/18 at 1423, Routine, Pain (scale 7-10) baclofen 2018-0 Yes 10mg 10 mg, Univers (LIORESAL) 11-16 Oral, TID, ity of tablet 10 05:45: [place] 00 on [facility] 11/16/18 at Branch 0045, Until Discontinu ed, Routine QUEtiapine 2018-0 Yes 100mg 100 mg, Uni vers (SEROQUEL) 8- Oral, QHS, ity of tablet 100 02:00: [place] 00 on [facility] 11/15/18 at Branch 2100, Until Discontinu ed, Routine divalproex 2018-0 Yes 125mg 125 mg, Uni vers (DEPAKOTE) 8- Oral, QHS, ity of EC tablet 02:00: [place] 125 mg 00 on [facility] 11/15/18 at Branch 2100, Until Discontinu ed, Routine proMETHazin 2018-0 2019- No 25mg 25 mg, Uni vers e 11-16 08-04 Oral, ity of (PHENERGAN) 01:15: 00:46 ONCE, 1 [place] tablet 25 00 :00 dose, [facility] Medic al mg 11/15/18 at Branch 2015, Routine gabapentin 2019-0 Yes 300mg 300 mg, Uni vers (NEURONTIN) 8- Oral, BID, it y of capsule 300 01:00: First dose [place] mg 00 on [facility] 11/15/18 at Branch 2000, Until Discontinu ed, [...] Medical tablet hours as Branch needed. ALPRAZOLAM 2018- No Take by Un you ORAL 11-15 mouth. ity of 22:50: 00:00 [place] 54 :00 Medical Branch divalproex 2019- No Take by Un you sodium 11-15 mouth. ity of (DEPAKOTE 22:50: 00:00 [place] ORAL) 54 :00 Medical Branch HYDROcodone 2019- No 1{tbl} 1 tablet, Univers -acetaminop 11-15 Oral, ity of hen (NORCO 22:46: 19:24 Q6HPRN, [place] as 5) 5-325 mg 08 :02 Starting Medi brandy tablet 1 11/15/18 Branc h tablet at 1746, Until 11/16/18 at 1424, Routine, Pain (scale 4-6), Pain (scale 7-10) FENTanyl PF 2018- 2019- No 12.5ug 12.5 mcg, Univers (SUBLIMAZE [...] ed, Routine, Nausea and Vomiting (N/V) acetaminoph Yes 650mg 650 mg, Un you en 11-15 Oral, ity of (TYLENOL) 22:41: Q6HPRN, [place] tablet 650 56 Starting Medic al mg 11/15/18 Branch at 1741, Until Discontinu ed, Routine, Pain (scale 1-3) FENTanyl PF 2018- No 100ug 100 mcg, Univers (SUBLIMAZE 11-15 Slow IV ity o f (PF)) 20:30: 19:34 Push, [place] injection 00 :00 ONCE, 1 Medical 100 mcg dose, Sat Branch 11/15/18 at 1530, Routine FENTanyl PF 2018- No 75ug 75 mcg, Un you (SUBLIMAZE 11-15 Slow IV ity o f (PF)) 18:30: 17:34 Push, [place] injection 00 :00 ONCE, 1 Medical 75 mcg dose, Sat Branch 11/15/18 at 1330, STAT pantoprazol 2018- No 8mg/h 8 mg/hr U nivers e 11-15 (50 ity of (PROTONIX) 18:30: 22:51 mL/hr), [...] Sat Medica l NaCl 0.9% 11/15/18 at Branc h (NS) 20 mL 1330, 20 syringe mL iohexol 2018- No 120mL 120 mL, Unive rs (OMNIPAQUE 11-15 Intravenou it y of 350 16:45: 16:25 s, ONCE, 1 [place] BULK-150 00 :00 dose, Sat Medica l mL) 11/15/18 at Branch injection 1145, 120 mL Routine FENTanyl PF 2019-0 2019- No 100ug 100 mcg, Univers (SUBLIMAZE 11-15 Slow IV ity o f (PF)) 16:45: 15:35 Push, [place] injection 00 :00 ONCE, 1 Medical 100 mcg dose, Sat Branch 11/15/18 at 1145, STAT ipratropium 2019- No 3mL 3 mL, Univ ers -albuterol 11-15 Inhalation it y of (DUONEB) 16:30: 15:34 , ONCE, 1 [place] 0.5 mg-3 00 :00 dose, Sat Medica l mg(2.5 mg 11/15/18 at [facility] h base)/3 mL 1130, [place] nebulizer solution 3 mL FENTanyl PF 2019- No 50ug 50 mcg, Un you (SUBLIMAZE [...] mg 11/15/18 at Branch 1045, [place] traMADol 2019- No [id number] 50mg Take 1 Univers (ULTRAM) 50 10-31 9103 tablet by it y of mg tablet 00:00: 00:00 mouth [place] 00 :00 every 8 Medical (eight) Branch hours as needed for Pain (scale 4-6). CREON Yes Take by Univers 36,000-114, 7-11 mouth [...] 3 ity o f 000- 00:00: (three) [place] 180,000 00 times Medical unit CpDR daily [...] 3 ity o f 000- 00:00: (three) [place] 180,000 00 times Medical unit CpDR daily [...] CpDR daily with Bran ch meals. CREON Yes Take by Univers 36,000-114, 7-11 mouth 3 ity o f 000- 00:00: (three) [place] 180,000 00 times Medical unit CpDR daily with Bran ch meals. CREON Yes Take by Univers 36,000-114, 7-11 mouth 3 ity o f 000- 00:00: (three) [place] 180,000 00 times Medical unit CpDR daily with Bran ch meals. CREON Yes Take by Univers 36,000-114, 7-11 mouth 3 ity o f 000- 00:00: (three) [place] 180,000 00 times Medical unit CpDR daily with Bran ch meals. CREON Yes Take by Univers 36,000-114, 7-11 mouth 3 ity o f 000- 00:00: (three) [place] 180,000 00 times Medical unit CpDR daily with Bran ch meals. CREON Yes Take by Univers 36,000-114, 7-11 mouth 3 ity o f 000- 00:00: (three) [place] 180,000 00 times Medical unit CpDR daily with Bran ch meals. CREON 2020- No Take by Univers 36,000-114, 7-11 04-05 mouth 3 ity of 000- 00:00: 00:00 (three) [place] 180,000 00 :00 times Medical unit CpDR daily with Bran ch meals. CREON 2020- No Take by Univers 36,000-114, 7-11 04-05 mouth 3 ity of 000- 00:00: 00:00 (three) [place] 180,000 00 :00 times Medical unit CpDR daily with Bran ch meals. dicyclomine 2019- No [id number] 20mg Take 1 Univers (BENTYL) 20 5-10 12- tablet by it y of mg tablet 00:00: 00:00 mouth 4 [place] :[place] (four) Medical times Branch daily as needed for Abdominal pain. ondansetron 2019- No [id number] 4mg Take 1 Univers (ZOFRAN) 4 5-10 12-03 tablet by ity of mg tablet 00:00: 00:00 mouth [place] 00 :00 every 8 Medical (eight) Branch hours as needed for Nausea and Vomiting (N/V). amLODIPine 2019- No [id number] 5mg Take 2 Univers 2.5 mg 07-21- tablets by ity of tablet 00:00: 00:00 mouth at [place] 00 :00 bedtime. Medical Branch proMETHazin 2019- No [id number] 25mg Take 1 Univers e 25 mg 07-21- tablet by ity of tablet 00:00: 00:00 mouth [place] 00 :00 every 6 Medical (six) Branch hours as needed for Nausea and Vomiting (N/V). famotidine 2017-04- No 20mg Take 1 Univ ers (PEPCID) 20 2-10 20- tablet by it y of mg tablet 00:00: 00:00 mouth 2 [place] 00 :[place] (two) Medical times Branch daily. furosemide 2015-04- No 20mg Take 1 Univ ers (LASIX) 20 05-01- tablet by ity of mg tablet 00:00: 00:00 mouth [place] 00 :00 every Medical morning. Branch KCL 2015-04- No 20meq Take 1 Univers (KLOR-CON 05-01 tablet by ity of M20) 20 mEq 00:00: 00:00 mouth [place] tablet 00 :00 daily. Medical Branch dicyclomine 2018- No 20mg Take 1 Uni vers (BENTYL) 20 5- 08-03 tablet by it y of mg tablet 00:00: 00:00 mouth 4 [place] 00 :[place] (four) Medical times Branch daily. ondansetron 2014-04 2019- No 4mg Take 1 Tab Univers (ZOFRAN, 05-0203 by mouth ity of HYDROCHLORI 00:00: 00:00 every 8 [place] 4 mg 00 :00 (eight) Medical tablet hours. Branch Robaxin-750 Robaxin-750 Yes Na [place] 1 tablet [...] Outpati daily for ent 4 days Clinics Immunizations Ordered Filled Immunization Date Status Comments Formerly [facility] e Immunization Name Name SARS-COV-2 COVID-19 2021-03-25 Completed Unive rsity of MODERNA BOOSTER 00:00:00 [facility] [place] [facility] VACCINE Branch SARS-COV-2 COVID-19 2021-03-25 Completed Unive rsity of MODERNA BOOSTER 00:00:00 [facility] [place] [facility] VACCINE Branch SARS-COV-2 COVID-19 2020-07-19 Completed Unive rsity of MODERNA VACCINE 00:00:00 [facility] SARS-COV-2 COVID-19 2020-07-19 Completed Unive rsity of MODERNA VACCINE 00:00:00 [facility] SARS-COV-2 COVID-19 2020-07-19 Completed Unive rsity of MODERNA VACCINE 00:00:00 [facility] SARS-COV-2 COVID-19 2020-07-19 Completed Unive rsity of MODERNA VACCINE 00:00:00 [facility] SARS-COV-2 COVID-19 2020-07-19 Completed Unive rsity of [...] Completed Unive rsity of MODERNA VACCINE 00:00:00 [facility] SARS-COV-2 COVID-19 2020-05-22 Completed Unive rsity of MODERNA VACCINE 00:00:00 [facility] SARS-COV-2 COVID-19 2020-05-22 Completed Unive rsity of MODERNA VACCINE 00:00:00 [facility] SARS-COV-2 COVID-19 2020-05-22 Completed Unive rsity of MODERNA VACCINE 00:00:00 [facility] SARS-COV-2 COVID-19 2020-05-22 Completed Unive rsity of MODERNA VACCINE 00:00:00 [facility] SARS-COV-2 COVID-19 2020-05-22 Completed Unive rsity of MODERNA VACCINE 00:00:00 [facility] SARS-COV-2 COVID-19 2020-05-22 Completed Unive rsity of MODERNA VACCINE 00:00:00 [facility] Influenza Virus 2013-02-27 Completed Universit y of Vaccine 00:00:00 [facility] Influenza Virus 2013-02-27 Completed Universit y of Vaccine 00:00:00 [facility] Influenza Virus 2013-02-27 Completed Universit y of Vaccine 00:00:00 [facility] Influenza Virus 2013-02-27 Completed Universit y of Vaccine 00:00:00 [facility] Influenza Virus 2013-02-27 Completed Universit y of Vaccine 00:00:00 [facility] Influenza Virus 2013-02-27 Completed Universit y of Vaccine 00:00:00 [facility] Influenza Virus 2013-02-27 Completed Universit y of Vaccine 00:00:00 [facility] Influenza Virus 2013-02-27 Completed Universit y of Vaccine 00:00:00 [facility] Influenza Virus 2013-02-27 Completed Universit y of Vaccine 00:00:00 [facility] Influenza Virus 2013-02-27 Completed Universit y of Vaccine 00:00:00 [facility] Influenza Virus 2013-02-27 Completed Universit y of Vaccine 00:00:00 [facility] Influenza Virus 2013-02-27 Completed Universit y of Vaccine 00:00:00 [facility] Influenza Virus 2013-02-27 Completed Universit y of Vaccine 00:00:00 [facility] Influenza Virus 2013-02-27 Completed Universit y of Vaccine 00:00:00 [facility] Influenza Virus 2013-02-27 Completed Universit y of Vaccine 00:00:00 [facility] Influenza Virus 2013-02-27 Completed Universit y of Vaccine 00:00:00 [facility] Influenza Virus 2013-02-27 Completed Universit y of Vaccine 00:00:00 [facility] Influenza Virus 2013-02-27 Completed Universit y of Vaccine 00:00:00 [facility] Influenza Virus 2013-02-27 Completed Universit y of Vaccine 00:00:00 [facility] Influenza Virus 2013-02-27 Completed Universit y of Vaccine 00:00:00 [facility] Influenza Virus 2013-02-27 Completed Universit y of Vaccine 00:00:00 [facility] Influenza Virus 2013-02-27 Completed Universit y of Vaccine 00:00:00 [facility] Influenza Virus 2013-02-27 Completed Universit y of Vaccine 00:00:00 [facility] Influenza Virus 2013-02-27 Completed Universit y of Vaccine 00:00:00 [facility] Influenza Virus 2013-02-27 Completed Universit y of Vaccine 00:00:00 [facility] Influenza Virus 2013-02-27 Completed Universit y of Vaccine 00:00:00 [facility] Influenza Virus 2013-02-27 Completed Universit y of Vaccine 00:00:00 [facility] Influenza Virus 2013-02-27 Completed Universit y of Vaccine 00:00:00 [facility] Influenza Virus 2013-02-27 Completed Universit y of Vaccine 00:00:00 [facility] Influenza Virus 2013-02-27 Completed Universit y of Vaccine 00:00:00 [facility] Influenza Virus 2013-02-27 Completed Universit y of Vaccine 00:00:00 [facility] Influenza Virus 2013-02-27 Completed Universit y of Vaccine 00:00:00 [facility] Influenza Virus 2013-02-27 Completed Universit y of Vaccine 00:00:00 [facility] Influenza Virus 2013-02-27 Completed Universit y of Vaccine 00:00:00 [facility] Influenza Virus 2013-02-27 Completed Universit y of Vaccine 00:00:00 [facility] Influenza Virus 2013-02-27 Completed Universit y of Vaccine 00:00:00 [facility] Influenza Virus 2013-02-27 Completed Universit y of Vaccine 00:00:00 [facility] Influenza Virus 2013-02-27 Completed Universit y of Vaccine 00:00:00 [facility] Influenza Virus 2013-02-27 Completed Universit y of Vaccine 00:00:00 [facility] Influenza Virus 2013-02-27 Completed Universit y of Vaccine 00:00:00 [facility] Influenza Virus 2013-02-27 Completed Universit y of Vaccine 00:00:00 [facility] Vital Signs Vital Name Observation Time Observation Value Comments Source WEIGHT 2020-09-05 85.548 kg 19:05:00 WEIGHT 2020-08-28 83.9 kg 04:41:00 WEIGHT 2020-08-27 84.959 kg 05:27:00 WEIGHT 2020-08-26 85.821 kg 02:50:00 HEIGHT 2020-08-26 152.4 cm 02:50:00 Systolic blood 2021-03-26 138 mm[Hg] University of pressure 03:00:00 [facility] Diastolic blood 2021-03-26 89 mm[Hg] University o f pressure 03:00:00 [facility] Heart rate 2021-03-26 75 /min [facility] 03:00:00 [facility] Respiratory rate 2021-03-26 12 /min [facility] 03:00:00 [facility] Oxygen saturation 2021-03-26 99 /min [facility] in Arterial blood 03:00:00 [facility] by Pulse oximetry [place] Body temperature 2021-03-26 37 Roro [facility] 01:02:09 [facility] Body height 2021-03-26 152.4 cm University 00:10:00 [facility] Body weight 2021-03-26 80.74 kg University 00:10:00 [facility] BMI 2021-03-26 34.76 kg/m2 University 00:10:00 [facility] Systolic blood 2021-03-21 173 mm[Hg] University of pressure 01:28:00 [facility] Diastolic blood 2021-03-21 104 mm[Hg] University o f pressure 01:28:00 [facility] Heart rate 2021-03-21 74 /min University 01:28:00 [facility] Respiratory rate 2021-03-21 22 /min University 01:28:00 [facility] Oxygen saturation 2021-03-21 96 /min University of in Arterial blood 01:28:00 [facility] brandy by Pulse oximetry Branch Body temperature 2021-03-20 37.17 Roro University of 21:59:00 [facility] Body weight 2021-03-20 81.647 kg University of 21:59:00 [facility] BMI 2021-03-20 35.15 kg/m2 University of 21:59:00 [facility] Systolic blood 2021-02-13 159 mm[Hg] University of pressure 02:02:00 [facility] Diastolic blood 2021-02-13 95 mm[Hg] University o f pressure 02:02:00 [facility] Body temperature 2021-02-13 36.67 Roro University of 02:02:00 [facility] Respiratory rate 2021-02-13 17 /min University of 02:02:00 [facility] Oxygen saturation 2021-02-13 93 /min University of in Arterial blood 02:02:00 [facility] brandy by Pulse oximetry Branch Heart rate 2021-02-13 73 /min University of 01:00:00 [facility] Body height 2021-02-12 152.4 cm University of 19:07:00 [facility] Body weight 2021-02-12 86.183 kg University of 19:07:00 [facility] BMI 2021-02-12 37.11 kg/m2 University of 19:07:00 [facility] Systolic blood 2021-01-18 155 mm[Hg] University of pressure 05:45:00 [facility] Diastolic blood 2021-01-18 93 mm[Hg] University o f pressure 05:45:00 [facility] Heart rate 2021-01-18 86 /min University of 05:45:00 [facility] Respiratory rate 2021-01-18 14 /min University of 05:45:00 [facility] Oxygen saturation 2021-01-18 99 /min University of in Arterial blood 05:45:00 [facility] brandy by Pulse oximetry Branch Body temperature 2021-01-18 37.06 Roro University of 02:32:00 [facility] Body height 2021-01-18 152.4 cm University of 02:32:00 [facility] Body weight 2021-01-18 86.183 kg University of 02:32:00 [facility] BMI 2021-01-18 37.11 kg/m2 University of 02:32:00 [facility] Systolic blood 2021-01-07 117 mm[Hg] University of pressure 16:25:00 [facility] Branch Diastolic blood 2021-01-07 79 mm[Hg] University o f pressure 16:25:00 [facility] Branch Heart rate 2021-01-07 85 /min University of 16:25:00 [facility] Body temperature 2021-01-07 36.89 Roro University of 16:25:00 [facility] Respiratory rate 2021-01-07 16 /min University of 16:25:00 [facility] Body height 2021-01-07 152.4 cm University of 16:25:00 [facility] Body weight 2021-01-07 77.111 kg University of 16:25:00 [facility] BMI 2021-01-07 33.20 kg/m2 University of 16:25:00 [facility] Oxygen saturation 2021-01-07 96 /min University of in Arterial blood 16:25:00 [facility] by Pulse oximetry Branch Systolic blood 2020-12-30 148 mm[Hg] University of pressure 22:35:00 [facility] Diastolic blood 2020-12-30 107 mm[Hg] University o f pressure 22:35:00 [facility] Heart rate 2020-12-30 78 /min University of 22:35:00 [facility] Respiratory rate 2020-12-30 18 /min University of 22:35:00 [facility] Oxygen saturation 2020-12-30 97 /min University of in Arterial blood 22:35:00 [facility] by Pulse oximetry Branch Body temperature 2020-12-30 37.44 Roro University of 18:12:00 [facility] Body height 2020-12-30 152.4 cm University of 18:12:00 [facility] Body weight 2020-12-30 77.111 kg University of 18:12:00 [facility] BMI 2020-12-30 33.20 kg/m2 University of 18:12:00 [facility] Systolic blood 2020-12-30 122 mm[Hg] University of pressure 15:13:00 [facility] Diastolic blood 2020-12-30 87 mm[Hg] University o f pressure 15:13:00 [facility] Heart rate 2020-12-30 83 /min University of 15:13:00 [facility] Body temperature 2020-12-30 36.83 Roro University of 15:13:00 [facility] Respiratory rate 2020-12-30 18 /min University of 15:13:00 [facility] Body height 2020-12-30 152.4 cm University of 15:13:00 [facility] Body weight 2020-12-30 83.553 kg University of 15:13:00 [facility] BMI 2020-12-30 35.97 kg/m2 University of 15:13:00 [facility] Systolic blood 2020-12-16 123 mm[Hg] University of pressure 15:21:00 [facility] Diastolic blood 2020-12-16 90 mm[Hg] University o f pressure 15:21:00 [facility] Heart rate 2020-12-16 81 /min University of 15:21:00 [facility] Body temperature 2020-12-16 36.83 Roro University of 15:21:00 [facility] Respiratory rate 2020-12-16 18 /min University of 15:21:00 [facility] Body height 2020-12-16 152.4 cm University of 15::00 [facility] Body weight 2020-12-16 83.915 kg [facility] 15:21:00 [facility] BMI 2020-12-16 36.13 kg/m2 [facility] 15:21:00 [facility] Systolic blood 2020-12-05 167 mm[Hg] [facility] of pressure 22:45:00 [facility] Diastolic blood 2020-12-05 101 mm[Hg] [facility] o f pressure 22:45:00 [facility] Heart rate 2020-12-05 76 /min [facility] 22:45:00 [facility] Respiratory rate 2020-12-05 20 /min [facility] 22:45:00 [facility] Oxygen saturation 2020-12-05 97 /min [facility] in Arterial blood 22:45:00 [facility] by Pulse oximetry [place] Body temperature 2020-12-05 37.11 Roro [facility] of 19:05:00 [facility] Body weight 2020-12-05 77.111 kg [facility] of 19:05:00 [facility] BMI 2020-12-05 33.20 kg/m2 [facility] of 19:05:00 [facility] Systolic blood 2020-10-12 111 mm[Hg] [facility] pressure 20:04:00 [facility] Diastolic blood 2020-10-12 77 mm[Hg] [facility] f pressure 20:04:00 [facility] Heart rate 2020-10-12 74 /min [facility] 20:04:00 [facility] Body temperature 2020-10-12 36.06 Roro [facility] 20:04:00 [facility] Respiratory rate 2020-10-12 18 /min [facility] 20:04:00 [facility] Oxygen saturation 2020-10-12 97 /min [facility] in Arterial blood 20:04:00 [place] [facility] Pulse oxim[facility] Body height 2020-10-12 152.4 cm [facility] 02:36:00 [facility] Body weight 2020-10-12 84.46 kg [facility] 02:36:00 [facility] BMI 2020-10-12 36.36 kg/m2 [facility] 02:36:00 [facility] Systolic blood 2020-10-12 111 mm[Hg] [facility] pressure 20:04:00 [facility] Diastolic blood 2020-10-12 77 mm[Hg] [facility] pressure 20:04: [facility] Heart rate 2020-10-12 74 /min [facility] 20:04:00 [facility] Body temperature 2020-10-12 36.06 Roro [facility] 20:04:00 [facility] Respiratory rate 2020-10-12 18 /min [facility] 20:04:00 [facility] Oxygen saturation 2020-10-12 97 /min [facility] in Arterial blood 20:04:00 [place] [facility] Pulse oxim[facility] Body height 2020-10-12 152.4 cm [facility] 02:36:00 [facility] Body weight 2020-10-12 84.46 kg [facility] 02:36:00 [facility] BMI 2020-10-12 36.36 kg/m2 [facility] of 02:36:00 [facility] Systolic blood 2020-10-05 129 mm[Hg] [facility] pressure 01:00:00 [facility] Diastolic blood 2020-10-05 88 mm[Hg] [facility] o f pressure 01:00:00 [facility] Heart rate 2020-10-05 72 /min [facility] 01:00:00 [facility] Respiratory rate 2020-10-05 18 /min [facility] 01:00:00 [facility] Oxygen saturation 2020-10-05 95 /min [facility] in Arterial blood 01:00:00 [place] [facility] Pulse oxim[facility] Body temperature 2020-10-04 37.72 Roro [facility] 22:44:00 [facility] Body weight 2020-10-04 77.111 kg [facility] 22:44:00 [facility] BMI 2020-10-04 33.20 kg/m2 [facility] 22:44:00 [facility] Systolic blood 2020-10-05 129 mm[Hg] [facility] pressure 01:00:00 [facility] Diastolic blood 2020-10-05 88 mm[Hg] [facility] pressure 01:00:00 [facility] Heart rate 2020-10-05 72 /min [facility] 01:00:00 [facility] Respiratory rate 2020-10-05 18 /min [facility] 01:00:00 [facility] Oxygen saturation 2020-10-05 95 /min [facility] in Arterial blood 01:00:00 [facility] by Pulse oximetry Branch Body temperature 2020-10-04 37.72 Roro [facility] 22:44:00 [facility] Body weight 2020-10-04 77.111 kg [facility] of 22:44:00 [facility] BMI 2020-10-04 33.20 kg/m2 [facility] 22:44:00 [facility] WEIGHT 2020-09-05 85.548 kg 19:05:00 WEIGHT 2020-08-28 83.9 kg 04:41:00 WEIGHT 2020-08-27 84.959 kg 05:27:00 WEIGHT 2020-08-26 85.821 kg 02:50:00 HEIGHT 2020-08-26 152.4 cm 02:50:00 Systolic blood 2020-08-05 157 mm[Hg] [facility] pressure 13:12:00 [facility] Diastolic blood 2020-08-05 128 mm[Hg] [facility] pressure 13:12:00 [facility] Heart rate 2020-08-05 95 /min [facility] 13:12:00 [facility] Body temperature 2020-08-05 36.67 Roro [facility] 13:12:00 [facility] Respiratory rate 2020-08-05 18 /min [facility] 13:12:00 [facility] Body weight 2020-08-05 77.111 kg [facility] of 13:12:00 [facility] BMI 2020-08-05 33.20 kg/m2 [facility] 13:12:00 [facility] Oxygen saturation 2020-08-05 98 /min [facility] in Arterial blood 13:12:00 [facility] brandy by Pulse oximetry Branch Systolic blood 2020-08-05 157 mm[Hg] [facility] of pressure 13:12:00 [facility] Diastolic blood 2020-08-05 128 mm[Hg] [facility] o f pressure 13:12:00 [facility] Heart rate 2020-08-05 95 /min [facility] 13:12:00 [facility] Body temperature 2020-08-05 36.67 Roro [facility] 13:12:00 [facility] Respiratory rate 2020-08-05 18 /min [facility] 13:12:00 [facility] Body weight 2020-08-05 77.111 kg [facility] of 13:12:00 [facility] BMI 2020-08-05 33.20 kg/m2 [facility] 13:12:00 [facility] Oxygen saturation 2020-08-05 98 /min [facility] in Arterial blood 13:12:00 [facility] by Pulse oximetry [facility] Systolic blood 2020-07-18 184 mm[Hg] [facility] pressure 13:22:00 [facility] Diastolic blood 2020-07-18 110 mm[Hg] [facility] o f pressure 13:22:00 [facility] Heart rate 2020-07-18 71 /min [facility] 13:22:00 [facility] Respiratory rate 2020-07-18 18 /min [facility] 13:22:00 [facility] Oxygen saturation 2020-07-18 100 /min [facility] in Arterial blood 13:22:00 [facility] by Pulse oximetry Branch Body temperature 2020-07-18 36.56 Roro [facility] 12:49:00 [facility] Body height 2020-07-14 152.4 cm [facility] of 16:45:00 [facility] Body weight 2020-07-14 77.111 kg [facility] 16:45:00 [facility] BMI 2020-07-14 33.20 kg/m2 [facility] of 16:45:00 [facility] Systolic blood 2020-07-18 184 mm[Hg] [facility] of pressure 13:22:00 [facility] Diastolic blood 2020-07-18 110 mm[Hg] [facility] o f pressure 13:22:00 [facility] Heart rate 2020-07-18 71 /min [facility] of 13:22:00 [facility] Respiratory rate 2020-07-18 18 /min [facility] 13:22:00 [facility] Oxygen saturation 2020-07-18 100 /min [facility] in Arterial blood 13:22:00 [facility] brandy by Pulse oximetry Branch Body temperature 2020-07-18 36.56 Roro [facility] 12:49:00 [facility] Body height 2020-07-14 152.4 cm [facility] 16:45:00 [facility] Body weight 2020-07-14 77.111 kg [facility] 16:45:00 [facility] BMI 2020-07-14 33.20 kg/m2 [facility] 16:45:00 [facility] Systolic blood 2020-07-18 180 mm[Hg] [facility] of pressure 12:59:00 [facility] Diastolic blood 2020-07-18 88 mm[Hg] [facility] o f pressure 12:59:00 [facility] Heart rate 2020-07-18 74 /min [facility] 12:59:00 [facility] Respiratory rate 2020-07-18 17 /min [facility] 12:59:00 [facility] Oxygen saturation 2020-07-18 100 /min [facility] in Arterial blood 12:59:00 [facility] by Pulse oximetry Branch Body temperature 2020-07-18 36.56 Roro [facility] 12:49:00 [facility] Body height 2020-07-14 152.4 cm [facility] 16:45:00 [facility] Body weight 2020-07-14 77.111 kg [facility] 16:45:00 [facility] BMI 2020-07-14 33.20 kg/m2 [facility] 16:45:00 [facility] Systolic blood 2020-07-18 180 mm[Hg] [facility] pressure 12:59:00 [facility] Diastolic blood 2020-07-18 88 mm[Hg] [facility] o f pressure 12:59:00 [facility] Heart rate 2020-07-18 74 /min [facility] 12:59:00 [facility] Respiratory rate 2020-07-18 17 /min [facility] 12:59:00 [facility] Oxygen saturation 2020-07-18 100 /min [facility] in Arterial blood 12:59:00 [facility] brandy by Pulse oximetry Branch Body temperature 2020-07-18 36.56 Roro [facility] 12:49:00 [facility] Body height 2020-07-14 152.4 cm [facility] 16:45:00 [facility] Body weight 2020-07-14 77.111 kg [facility] 16:45:00 [facility] BMI 2020-07-14 33.20 kg/m2 [facility] 16:45:00 [facility] Systolic blood 2020-07-08 187 mm[Hg] [facility] pressure 02:00:00 [facility] Diastolic blood 2020-07-08 102 mm[Hg] [facility] pressure 02:00:00 [facility] Heart rate 2020-07-08 84 /min [facility] 02:00:00 [facility] Respiratory rate 2020-07-08 20 /min [facility] 02:00:00 [facility] Oxygen saturation 2020-07-08 100 /min [facility] in Arterial blood 02:00:00 [facility] by Pulse oximetry Branch Body temperature 2020-07-07 37.22 Roro [facility] 23:45:00 [facility] Body weight 2020-07-07 81.194 kg [facility] 23:45:00 [facility] BMI 2020-07-07 34.96 kg/m2 [facility] 23:45:00 [facility] Systolic blood 2020-07-08 187 mm[Hg] [facility] pressure 02:00:00 [facility] Diastolic blood 2020-07-08 102 mm[Hg] [facility] pressure 02:00:00 [facility] Heart rate 2020-07-08 84 /min [facility] 02:00:00 [facility] Respiratory rate 2020-07-08 20 /min [facility] 02:00:00 [facility] Oxygen saturation 2020-07-08 100 /min [facility] in Arterial blood 02:00:00 [facility] by Pulse oximetry Branch Body temperature 2020-07-07 37.22 Roro [facility] 23:45:00 [facility] Body weight 2020-07-07 81.194 kg [facility] 23:45:00 [facility] BMI 2020-07-07 34.96 kg/m2 [facility] 23:45:00 [facility] Systolic blood 2020-07-04 168 mm[Hg] [facility] pressure 13:34:00 [facility] Diastolic blood 2020-07-04 94 mm[Hg] [facility] o [facility] pressure 13:34:00 [facility] Heart rate 2020-07-04 63 /min [facility] 13:34:00 [facility] Oxygen saturation 2020-07-04 100 /min [facility] in Arterial blood 13:34:00 [place] [facility] Pulse oximetry [facility] Respiratory rate 2020-07-04 12 /min [facility] 13:23:00 [facility] Body temperature 2020-07-04 36.72 Roro [facility] 13:03:00 [facility] Body height 2020-07-01 152.4 cm [facility] 17:45:00 [facility] Body weight 2020-07-01 81.647 kg [facility] of 17:45:00 [facility] BMI 2020-07-01 35.15 kg/m2 [facility] of 17:45:00 [facility] Systolic blood 2020-07-04 168 mm[Hg] [facility] of pressure 13:34:00 [facility] Diastolic blood 2020-07-04 94 mm[Hg] [facility] o f pressure 13:34:00 [facility] Heart rate 2020-07-04 63 /min [facility] 13:34:00 [facility] Oxygen saturation 2020-07-04 100 /min [facility] in Arterial blood 13:34:00 [place] [facility] Pulse oximetry [facility] Respiratory rate 2020-07-04 12 /min [facility] 13:23:00 [facility] Body temperature 2020-07-04 36.72 Roro [facility] 13:03:00 [facility] Body height 2020-07-01 152.4 cm [facility] 17:45:00 [facility] Body weight 2020-07-01 81.647 kg [facility] 17:45:00 [facility] BMI 2020-07-01 35.15 kg/m2 [facility] 17:45:00 [facility] Systolic blood 2020-06-20 148 mm[Hg] [facility] pressure 14:33:00 [facility] Diastolic blood 2020-06-20 86 mm[Hg] [facility] o f pressure 14:33:00 [facility] Heart rate 2020-06-20 70 /min [facility] 14:33:00 [facility] Respiratory rate 2020-06-20 11 /min [facility] 14:33:00 [facility] Oxygen saturation 2020-06-20 98 /min [facility] in Arterial blood 14:33:00 [place] [facility] Pulse oximetry [facility] Body temperature 2020-06-20 36.33 Roro [facility] 14:18:00 [facility] Body height 2020-06-20 152.4 cm [facility] 12:30:00 [facility] Body weight 2020-06-20 81.647 kg [facility] 12:30:00 [facility] BMI 2020-06-20 35.15 kg/m2 [facility] 12:30:00 [facility] Systolic blood 2020-06-20 148 mm[Hg] [facility] pressure 14:33:00 [facility] Diastolic blood 2020-06-20 86 mm[Hg] [facility] o [facility] pressure 14:33:00 [facility] Heart rate 2020-06-20 70 /min [facility] 14:33:00 [facility] Respiratory rate 2020-06-20 11 /min [facility] 14:33:00 [facility] Oxygen saturation 2020-06-20 98 /min [place] [facility] in Arterial blood 14:33:00 [facility] brandy by Pulse oximetry Branch Body temperature 2020-06-20 36.33 Roro [facility] 14:18:00 [facility] Body height 2020-06-20 152.4 cm [facility] 12:30:00 [facility] Body weight 2020-06-20 81.647 kg [facility] 12:30:00 [facility] BMI 2020-06-20 35.15 kg/m2 [facility] 12:30:00 [facility] Respiratory rate 2020-06-20 17 /min [facility] 14:12:00 [facility] Respiratory rate 2020-06-20 17 /min [facility] 14:12:00 [facility] Systolic blood 2020-05-07 122 mm[Hg] [facility] pressure 00:05:00 [facility] Diastolic blood 2020-05-07 77 mm[Hg] [facility] o [facility] pressure 00:05:00 [facility] Heart rate 2020-05-07 61 /min [facility] 00:05:00 [facility] Respiratory rate 2020-05-07 17 /min [facility] 00:05:00 [facility] Oxygen saturation 2020-05-07 100 /min [facility] in Arterial blood 00:05:00 [facility] brandy by Pulse oximetry Branch Body temperature 2020-05-06 37.06 Roro [facility] 21:17:00 [facility] Body height 2020-05-06 152.4 cm [facility] 21:17:00 [facility] Body weight 2020-05-06 77.111 kg [facility] 21:17:00 [facility] BMI 2020-05-06 33.20 kg/m2 [facility] of 21:17:00 [facility] Systolic blood 2020-05-07 122 mm[Hg] [facility] pressure 00:05:00 [facility] Diastolic blood 2020-05-07 77 mm[Hg] [facility] o f pressure 00:05:00 [facility] Heart rate 2020-05-07 61 /min [facility] 00:05:00 [facility] Respiratory rate 2020-05-07 17 /min [facility] 00:05:00 [facility] Oxygen saturation 2020-05-07 100 /min [facility] in Arterial blood 00:05:00 [facility] brandy by Pulse oximetry Branch Body temperature 2020-05-06 37.06 Roro [facility] 21:17:00 [facility] Body height 2020-05-06 152.4 cm [facility] 21:17:00 [facility] Body weight 2020-05-06 77.111 kg [facility] 21:17:00 [facility] BMI 2020-05-06 33.20 kg/m2 [facility] of 21:17:00 [facility] Systolic blood 2020-03-26 170 mm[Hg] [facility] of pressure 07:00:00 [facility] Diastolic blood 2020-03-26 110 mm[Hg] [facility] o f pressure 07:00:00 [facility] Heart rate 2020-03-26 77 /min [facility] 07:00:00 [facility] Respiratory rate 2020-03-26 18 /min [facility] 07:00:00 [facility] Oxygen saturation 2020-03-26 96 /min [facility] in Arterial blood 07:00:00 [facility] by Pulse oximetry [facility] Body temperature 2020-03-26 37.67 Roro [facility] 03:07:00 [facility] Body height 2020-03-26 152.4 cm [facility] 03:07:00 [facility] Body weight 2020-03-26 77.111 kg [facility] 03:07:00 [facility] BMI 2020-03-26 33.20 kg/m2 [facility] of 03:07:00 [facility] Systolic blood 2020-03-26 170 mm[Hg] [facility] of pressure 07:00:00 [facility] Diastolic blood 2020-03-26 110 mm[Hg] [facility] o f pressure 07:00:00 [facility] Heart rate 2020-03-26 77 /min [facility] 07:00:00 [facility] Respiratory rate 2020-03-26 18 /min [facility] 07:00:00 [facility] Oxygen saturation 2020-03-26 96 /min [facility] in Arterial blood 07:00:00 [facility] brandy by Pulse oximetry Branch Body temperature 2020-03-26 37.67 Roro [facility] 03:07:00 [facility] Body height 2020-03-26 152.4 cm [facility] 03:07:00 [facility] Body weight 2020-03-26 77.111 kg [facility] 03:07:00 [facility] BMI 2020-03-26 33.20 kg/m2 [facility] 03:07:00 [facility] Systolic blood 2020-02-08 134 mm[Hg] [facility] of pressure 20:21:00 [facility] Diastolic blood 2020-02-08 94 mm[Hg] [facility] o f pressure 20:21:00 [facility] Heart rate 2020-02-08 76 /min [facility] 20:21:00 [facility] Body temperature 2020-02-08 36.11 Roro [facility] 20:21:00 [facility] Respiratory rate 2020-02-08 17 /min [facility] 20:21:00 [facility] Oxygen saturation 2020-02-08 100 /min [facility] in Arterial blood 20:21:00 [facility] by Pulse oximetry [facility] Body weight 2020-02-03 80.468 kg [facility] of 08:16:00 [facility] BMI 2020-02-03 34.65 kg/m2 [facility] 08:16:00 [facility] Systolic blood 2020-02-08 134 mm[Hg] [facility] pressure 20:21:00 [facility] Diastolic blood 2020-02-08 94 mm[Hg] [facility] o f pressure 20:21:00 [facility] Heart rate 2020-02-08 76 /min [facility] 20::00 [facility] Body temperature 2020-02-08 36.11 Roro [facility] 20:21:00 [facility] Respiratory rate 2020-02-08 17 /min [facility] 20::00 [facility] Oxygen saturation 2020-02-08 100 /min [facility] in Arterial blood 20:21:00 [facility] brandy by Pulse oximetry Branch Body weight 2020-02-03 80.468 kg [facility] of 08:16:00 [facility] BMI 2020-02-03 34.65 kg/m2 [facility] of 08:16:00 [facility] Systolic blood 2019-12-18 113 mm[Hg] [facility] of pressure 23:30:00 [facility] Diastolic blood 2019-12-18 76 mm[Hg] [facility] o f pressure 23:30:00 [facility] Heart rate 2019-12-18 57 /min [facility] 23:30:00 [facility] Respiratory rate 2019-12-18 18 /min [facility] 23:30:00 [facility] Oxygen saturation 2019-12-18 99 /min [facility] in Arterial blood 23:30:00 [facility] brandy by Pulse oximetry Branch Body temperature 2019-12-18 36.67 Roro [facility] 20:24:00 [facility] Body height 2019-12-18 152.4 cm [facility] 20:24:00 [facility] Body weight 2019-12-18 77.111 kg [facility] 20:24:00 [facility] BMI 2019-12-18 33.20 kg/m2 [facility] 20:24:00 [facility] Systolic blood 2019-12-18 113 mm[Hg] [facility] of pressure 23:30:00 [facility] Diastolic blood 2019-12-18 76 mm[Hg] [facility] o f pressure 23:30:00 [facility] Heart rate 2019-12-18 57 /min University of :30:00 [facility] Respiratory rate 2019-12-18 18 /min University of :30:00 [facility] Oxygen saturation 2019-12-18 99 /min [facility] of in Arterial blood 23:30:00 [facility] by Pulse oximetry Branch Body temperature 2019-12-18 36.67 Roro [facility] 20:24:00 [facility] Body height 2019-12-18 152.4 cm [facility] 20:24:00 [facility] Body weight 2019-12-18 77.111 kg [facility] 20:24:00 [facility] BMI 2019-12-18 33.20 kg/m2 [facility] of 20:24:00 [facility] Systolic blood 2019-08-22 159 mm[Hg] University of pressure 04:28:00 [facility] Diastolic blood 2019-08-22 99 mm[Hg] University o f pressure 04:28:00 [facility] Heart rate 2019-08-22 66 /min University of 04:28:00 [facility] Respiratory rate 2019-08-22 18 /min University of 04:28:00 [facility] Oxygen saturation 2019-08-22 95 /min University of in Arterial blood 04:28:00 [facility] brandy by Pulse oximetry Branch Body temperature 2019-08-22 36.61 Roro University of 00:48:43 [place] [facility] Body height 2019-08-22 152.4 cm University of 00:44:00 [place] [facility] [place] Body weight 2019-08-22 86.183 kg University of 00:44:00 [facility] BMI 2019-08-22 37.11 kg/m2 University of 00:44:00 [facility] Systolic blood 2019-08-22 159 mm[Hg] University of pressure 04:28:00 [facility] Diastolic blood 2019-08-22 99 mm[Hg] University o f pressure 04:28:00 [place] [facility] Heart rate 2019-08-22 66 /min University of 04:28:00 [facility] Respiratory rate 2019-08-22 18 /min [place] of 04:28:00 [facility] Oxygen saturation 2019-08-22 95 /min University of in Arterial blood 04:28:00 [facility] by Pulse oximetry Branch Body temperature 2019-08-22 36.61 [place]oro [place] of 00:48:43 [facility] Body height 2019-08-22 152.4 cm University of 00:44:00 [facility] Body weight 2019-08-22 86.183 kg University of 00:44:00 [facility] BMI 2019-08-22 37.11 kg/m2 University of 00:44:00 [facility] Heart rate 2019-06-26 93 /min [place] of 00:53:00 [facility] Oxygen saturation 2019-06-26 94 /min University of in Arterial blood 00:53:00 [facility] by Pulse oximetry Branch Systolic blood 2019-06-26 149 mm[Hg] University of pressure 00:45:00 [facility] Diastolic blood 2019-06-26 106 mm[Hg] University o f pressure 00:45:00 [facility] Respiratory rate 2019-06-26 16 /min University of 00:45:00 [facility] Body temperature 2019-06-25 37.17 [place]oro University of 20:48:00 [facility] Body height 2019-06-25 152.4 cm University of 20:48:00 [facility] Body weight 2019-06-25 88.451 kg University of 20:48:00 [facility] BMI 2019-06-25 38.08 kg/m2 University of 20:48:00 [facility] Heart rate 2019-06-26 93 /min [place] of 00:53:00 [place] [facility] Oxygen saturation 2019-06-26 94 /min University of in Arterial blood 00:53:00 [facility] brandy by Pulse oximetry Branch Systolic blood 2019-06-26 149 mm[Hg] [facility] of pressure 00:45:00 [facility] Diastolic blood 2019-06-26 106 mm[Hg] University o f pressure 00:45:00 [facility] Respiratory rate 2019-06-26 16 /min University of 00:45:00 [facility] Body temperature 2019-06-25 37.17 [place]oro University of 20:48:00 [facility] Body height 2019-06-25 152.4 cm University of 20:48:00 [facility] Body weight 2019-06-25 88.451 kg University of 20:48:00 [facility] BMI 2019-06-25 38.08 kg/m2 University of 20:48:00 [facility] Systolic blood 2019-06-20 157 mm[Hg] [facility] of pressure 00:30:00 [facility] Diastolic blood 2019-06-20 89 mm[Hg] University o f pressure 00:30:00 [facility] Heart rate 2019-06-20 70 /min University of 00:30:00 [facility] Oxygen saturation 2019-06-20 97 /min University of in Arterial blood 00:30:00 [facility] by Pulse oximetry Branch Respiratory rate 2019-06-20 14 /min University of 00:04:00 [facility] Body height 2019-06-19 152.4 cm University of 19:46:00 [facility] Body weight 2019-06-19 88.451 kg University of 19:46:00 [facility] BMI 2019-06-19 38.08 kg/m2 University of 19:46:00 [facility] Body temperature 2019-06-19 37.06 [place] University of 19:45:00 [facility] Systolic blood 2019-06-20 157 mm[Hg] University of pressure 00:30:00 [facility] Diastolic blood 2019-06-20 89 mm[Hg] University o f pressure 00:30:00 [facility] Heart rate 2019-06-20 70 /min University of 00:30:00 [facility] Oxygen saturation 2019-06-20 97 /min University of in Arterial blood 00:30:00 [facility] brandy by Pulse oximetry Branch Respiratory rate 2019-06-20 14 /min University of 00:04:00 [facility] Body height 2019-06-19 152.4 cm University of 19:46:00 [facility] Body weight 2019-06-19 88.451 kg University of 19:46:00 [facility] BMI 2019-06-19 38.08 kg/m2 University of 19:46:00 [facility] Body temperature 2019-06-19 37.06 [place] University of 19:45:00 [facility] Systolic blood 2019-05-20 141 mm[Hg] University of pressure 02:59:00 [facility] Diastolic blood 2019-05-20 97 mm[Hg] University o f pressure 02:59:00 [facility] Heart rate 2019-05-20 86 /min University of 02:59:00 [facility] Respiratory rate 2019-05-20 16 /min University of 02:59:00 [facility] Oxygen saturation 2019-05-20 94 /min University of in Arterial blood 02:59:00 [facility] by Pulse oximetry [place] Body temperature 2019-05-20 36.61 Roro University of 00:45:32 [facility] Body weight 2019-05-20 81.647 kg University of 00:16:00 [facility] BMI 2019-05-20 35.15 kg/m2 University of 00:16:00 [facility] Systolic blood 2019-05-20 141 mm[Hg] [facility] of pressure 02:59:00 [facility] Diastolic blood 2019-05-20 97 mm[Hg] University o f pressure 02:59:00 [facility] Heart rate 2019-05-20 86 /min University of 02:59:00 [facility] Respiratory rate 2019-05-20 16 /min University of 02:59:00 [facility] Oxygen saturation 2019-05-20 94 /min University of in Arterial blood 02:59:00 [facility] by Pulse oximetry [place] Body temperature 2019-05-20 36.61 [place] University of 00:45:32 [facility] Body weight 2019-05-20 81.647 kg University of 00:16:00 [facility] BMI 2019-05-20 35.15 kg/m2 University of 00:16:00 [facility] Systolic blood 2018-12-18 134 mm[Hg] [facility] of pressure 13:38:00 [facility] Diastolic blood 2018-12-18 96 mm[Hg] University o f pressure 13:38:00 [facility] Heart rate 2018-12-18 75 /min University of 13:38:00 [place] [facility] Respiratory rate 2018-12-18 18 /min University of 13:38:00 [facility] Body height 2018-12-18 152.4 cm University of 13:38:00 [facility] Body weight 2018-12-18 88.451 kg University of 13:38:00 [facility] BMI 2018-12-18 38.08 kg/m2 University of 13:38:00 [facility] Systolic blood 2018-12-08 159 mm[Hg] [facility] of pressure 20:03:00 [facility] Diastolic blood 2018-12-08 111 mm[Hg] [facility] o f pressure 20:03:00 [facility] Body height 2018-12-08 152.4 cm University of 20:03:00 [facility] Body weight 2018-12-08 88.451 kg University of 20:03:00 [facility] BMI 2018-12-08 38.08 kg/m2 University of 20:03:00 [facility] Systolic blood 2018-12-05 180 mm[Hg] [facility] of pressure 13:04:00 [facility] Diastolic blood 2018-12-05 110 mm[Hg] University o f pressure 13:04:00 [facility] Heart rate 2018-12-05 74 /min University of 13:04:00 [facility] Respiratory rate 2018-12-05 18 /min University of 12:57:00 [facility] Body height 2018-12-05 152.4 cm University of 12:57:00 [facility] Body weight 2018-12-05 88.451 kg University of 12:57:00 [facility] BMI 2018-12-05 38.08 kg/m2 University of 12:57:00 [facility] Systolic blood 2018-12-01 139 mm[Hg] [facility] of pressure 23:03:00 [facility] Diastolic blood 2018-12-01 72 mm[Hg] University o f pressure 23:03:00 [facility] Heart rate 2018-12-01 64 /min University of 23:03:00 [facility] Respiratory rate 2018-12-01 13 /min University of 22:02:00 [facility] Body temperature 2018-12-01 36.33 [place] University of 19:27:00 [facility] Body height 2018-12-01 152.4 cm University of 19:27:00 [facility] Body weight 2018-12-01 88.451 kg University of 19:27:00 [facility] BMI 2018-12-01 38.08 kg/m2 University 19:27:00 [facility] Oxygen saturation 2018-12-01 88 /min [facility] in Arterial blood 19:27:00 [facility] by Pulse oximetry [place] Systolic blood 2018-11-17 145 mm[Hg] reported to RN [facility] pressure 17:00:00 [facility] Diastolic blood 2018-11-17 80 mm[Hg] reported to RN [facility] pressure 17:00:00 [facility] Heart rate 2018-11-17 54 /min [facility] 17:00:00 [facility] Body temperature 2018-11-17 36.72 Roro [facility] 17:00:00 [facility] Respiratory rate 2018-11-17 16 /min [facility] 17:00:00 [facility] Oxygen saturation 2018-11-17 95 /min [facility] in Arterial blood 17:00:00 [facility] by Pulse oximetry Branch Body height 2018-11-15 152.4 cm [facility] 22:07:00 [facility] Body weight 2018-11-15 88.587 kg [facility] 21:18:00 [facility] BMI 2018-11-15 38.14 kg/m2 [facility] 21:18:00 [facility] Procedures Procedure Date / Time Performing Clinician Source Performed CT ABDOMEN PELVIS W 2021-03-26 02:08:33 Consuelo Avendaño [facility] CONTRAST [facility] LIPASE 2021-03-26 00:57:00 [facility] TROPONIN I 2021-03-26 00:57:00 Consuelo Avendaño [facility] COMP. METABOLIC PANEL 2021-03-26 00:57:00 Consuelo Avendaño [facility] ([id number]) [facility] CBC WITH DIFF 2021-03-26 00:57:00 [facility] 2021-03-26 00:57:00 [facility]MINAL PRO-BNP 2021-03-26 00:57:[address] [facility] XR CHEST 1 VW 2021-03-26 00:17:07 Consuelo Avendaño [facility] CONSENT/REFUSAL FOR 2021-03-25 23:45:22 Doctor Unassigned, No [facility] [place] DI[facility] TREAT[facility] Name Medical Branch SARS-COV-2 COVID-19 2021-03-25 17:05:57 Doctor Unassigned, No [facility] [place] VACCINE BOOSTER,0.25ML,IM Name Medica l Branch (MODERNA) COMP. METABOLIC PANEL 2021-03-20 23:40:00 Meka Hammonds [facility] ([id number]) Medical Branch CT ABDOMEN PELVIS W 2021-03-20 23:00:43 Meka Hammonds [facility] CONTRAST [facility] LIPASE 2021-03-20 22:41:00 Meka Hammonds [facility] TROPONIN I 2021-03-20 22:41:00 Meka Hammonds [facility] CBC WITH DIFF 2021-03-20 22:41:00 Meka Hammonds [facility] NOTICE OF PRIVACY 2021-03-20 21:43:47 [facility] CONSENT/REFUSAL FOR 2021-03-20 21:43:12 Doctor Unassigned, No [facility] [place] DIAGNOSIS AND TREATMENT Name Medical Branch CT ABDOMEN PELVIS W 2021-02-12 22:22:23 Rosalinda Fisher [facility] Branch LIPASE 2021-02-12 19:54:00 Natalia [facility] COMP. METABOLIC PANEL 2021-02-12 19:54:00 Natalia [facility] ([id number]) [facility] CBC WITH DIFF 2021-02-12 19:54:00 Rosalinda Fisher [facility] URINALYSIS 2021-02-12 19:54:00 Rosalinda Fisher [facility] CONSENT/REFUSAL FOR 2021-02-12 19:03:31 Doctor Unassigned, No [facility] [place] DIAGNOSIS [facility] TREATMENT Name Medical Branch COMP. METABOLIC PANEL 2021-01-18 04:11:00 Maru Baez [facility] ([id number]) Medical Branch CT ABDOMEN PELVIS W 2021-01-18 03:35:25 Maru Baez [facility] CONTRAST [facility] LIPASE 2021-01-18 02:54:[address] [facility] CBC WITH DIFF 2021-01-18 02:54:[address] [facility] URINALYSIS 2021-01-18 02:54:[address] [facility] CONSENT/REFUSAL FOR 2021-01-18 02:23:56 Doctor [facility]igned, [facility] [place] [facility] Name Medical Branch XR CHEST 2 VW 2021-01-07 16:49:00 Consuelo Avendaño [place] [facility] COVID-19 (ID NOW RAPID 2020-12-30 22:02:00 [facility] Branch CT ABDOMEN PELVIS W 2020-12-30 18:49:58 Maru Baez [facility] CONTRAST [facility] LIPASE 2020-12-30 18:29:[address] [facility] HEPATIC FUNCTION PANEL 2020-12-30 18:29:00 [id number] (ALB,T.PRO,BILI Medical Branch T,BU/BC,ALT,AST,ALK PHOS) BASIC METABOLIC PANEL 2020-12-30 18:29:00 Maru Baez [facility] (NA, K, CL, CO2, GLUCOSE, Medica l Branch BUN, CREATININE, CA) CBC WITH DIFF 2020-12-30 18:29:[address] [facility] URINALYSIS 2020-12-30 18:29:[address] [facility] CONSENT/REFUSAL FOR 2020-12-30 18:01:18 Doctor [facility]igned, [facility] [place] [facility] Name Medical Branch US PELVIS COMPLETE WITH 2020-12-23 21:36:03 Vira Washburn [facility] TRANSVAGINAL [facility] US GALL BLADDER 2020-12-05 22:39:34 Eliana Poole [facility] LACTIC ACID WHOLE BLOOD 2020-12-05 22:16:00 Eliana Poole [facility] CT ABDOMEN PELVIS W 2020-12-05 21:23:47 Eliana Poole [facility] CONTRAST [facility] ASSIGNMENT OF BENEFITS 2020-12-05 20:53:22 Doctor Unassigned, No [facility] Name Medical Branch LIPASE 2020-12-05 20:12:[address] [facility] COMP. METABOLIC PANEL 2020-12-05 20:12:00 Maru Baez [facility] ([id number]) Medical Branch CBC WITH DIFF 2020-12-05 20:12:[address] [facility] URINALYSIS 2020-12-05 20:12:[address] [facility] CONSENT/REFUSAL FOR 2020-12-05 18:56:42 Doctor Unassigned, No [facility] DIAGNOSIS AND TREATMENT Name Medical Branch MAGNESIUM 2020-10-12 08:21:00 [facility] HEPATIC FUNCTION PANEL 2020-10-12 08:21:00 Jose Luis Chandler [facility] ([id number]) (ALB[facility] T,BU/BC,ALT,AST,ALK PHOS) LIPID PANEL ([id number])(TOTAL 2020-10-12 08:21:00 Lissette Becerra [facility] TRIGLYCERIDES, HDL) CBC WITH DIFF 2020-10-12 08:21:00 Jose Luis Chandler [facility] PROTHROMBIN TIME / INR 2020-10-12 08:21:00 Jose Luis Chandler [facility] ACTIVATED PARTIAL 2020-10-12 08:21:00 [facility] HEPATIC FUNCTION PANEL 2020-10-12 03:31:00 Jose Luis Chandler [facility] ([id number]) (ALB,T.PRO,BILI [facility] T,BU/BC,ALT,AST,ALK PHOS) BASIC METABOLIC PANEL 2020-10-12 03:31:00 Jose Luis Chandler [facility] (NA, K, CL, CO2, GLUCOSE, Medica l Branch BUN, CREATININE, CA) COVID-19 (ID NOW RAPID 2020-10-11 16:15:00 Farshad Ramirez [facility] TESTING) Medical Branch US GALL BLADDER 2020-10-11 15:26:59 Farshad Ramirez [facility] HB ECG ROUTINE & RHYTHM 2020-10-11 13:53:00 Farshad Ramirez [facility] STRIP Medical Branch LIPASE 2020-10-11 13:49:00 James Farshad [facility] TROPONIN I 2020-10-11 13:49:00 [facility] HEPATIC FUNCTION PANEL 2020-10-11 13:49:00 James Farshad [facility] ([id number]) (ALB,T.PRO,BILI Medical Branch T,BU/BC,ALT,AST,ALK PHOS) BASIC METABOLIC PANEL 2020-10-11 13:49:00 James Farshad [facility] (NA, K, CL, CO2, GLUCOSE, Medica l Branch BUN, CREATININE, CA) CBC WITH DIFF 2020-10-11 13:49:00 [facility] URINALYSIS 2020-10-11 13:49:00 [facility] CONSENT/REFUSAL FOR 2020-10-11 13:29:15 Doctor Unassigned, No [facility] [place] [facility] TREAT[facility] Name Medical Branch COVID-19 (ID NOW RAPID 2020-10-04 23:19:00 Rosanna Valera [facility] TESTING) Medical Branch URINALYSIS 2020-10-04 23:18:00 Rosanna Valera [facility] LIPASE 2020-10-04 23:17:00 Rosnana Valera [facility] COMP. METABOLIC PANEL 2020-10-04 23:17:00 Rosanna Valera [facility] ([id number]) Medical Branch CBC WITH DIFF 2020-10-04 23:17:00 Rosanna Valera [facility] CONSENT/REFUSAL FOR 2020-08-05 13:05:44 Doctor [facility]igned, [facility] [place] [facility] Name Medical Branch FL TIME OR 2020-07-18 12:50:00 Moise Gamez [facility] (NON-REPORTABLE) Medical Branch FL TIME OR 2020-07-18 12:50:00 Moise Gamez [facility] (NON-REPORTABLE) Medical Branch BLOCK EPIDURAL 2020-07-18 12:25:00 Moise Gamez [facility] Medical [place] POCT GLUCOSE (AUTOMATED) 2020-07-18 12:01:00 Vera [facility] POCT GLUCOSE (AUTOMATED) 2020-07-18 12:01[facility]00 [facility] 2020-07-18 05:01:00 Doctor Unassigned, No Univ [facility] Name Medical Branch CT ABDOMEN PELVIS W 2020-07-08 00:59:19 Jaki Polanco [facility] CONTRAST Medical Branch LIPASE 2020-07-08 00:23:00 Jaki Polanco [facility] MAGNESIUM 2020-07-08 00:23:00 Jaki Polanco [facility] TROPONIN I 2020-07-08 00:23:00 Jaki Polanco [facility] COMP. METABOLIC PANEL 2020-07-08 00:23:00 Jaki Polanco [facility] ([id number]) Medical Branch CBC WITH DIFF 2020-07-08 00:23:00 Jaki Polanco [facility] URINALYSIS 2020-07-08 00:23:00 Jaki Polanco [facility] COVID-19 (ID NOW RAPID 2020-07-08 00:23:00 Jaki Polanco [facility] TESTING) Medical Branch XR CHEST 1 VW 2020-07-08 00:01:58 Jaki Polanco [facility] CONSENT/REFUSAL FOR 2020-07-07 23:40:12 Doctor Unassigned, No [facility] DIAGNOSIS AND TREATMENT Name Medical [place] FL TIME OR 2020-07-04 13:10:00 Moise Gamez [facility] (NON-REPORTABLE) Medical Branch DAY SURGERY - [facility] 2020-07-04 05:01:00 Doctor Unassigned, No [facility] [place] Name Medical Branch ASSIGNMENT OF BENEFITS 2020-07-01 14:01:02 Doctor Unassigned, No [facility] [place] Name Medical Branch FL TIME OR 2020-06-20 14:12:00 Moise Gamez [facility] (NON-REPORTABLE) Medical Branch DAY SURGERY - [facility] 2020-06-20 06:01:00 Doctor Unassigned, No [facility] [place] Name Medical Branch ASSIGNMENT OF BENEFITS 2020-06-17 21:21:05 Doctor Unassigned, No [facility] [place] Name Medical Branch CONSENT/REFUSAL FOR 2020-06-15 20:59:25 Doctor Unassigned, No [facility] [place] DIAGNOSIS AND TREATMENT Name Medical Branch CONSENT/REFUSAL FOR 2020-06-15 20:59:25 Doctor Unassigned, No [facility] [place] DIAGNOSIS AND TREATMENT Name Medical Branch ASSIGNMENT OF BENEFITS 2020-06-15 20:59:08 Doctor Unassigned, No [facility] [place] Name Medical Branch ASSIGNMENT OF BENEFITS 2020-06-15 20:59:08 Doctor Unassigned, No [facility] [place] Name Medical Branch CONSENT/REFUSAL FOR 2020-06-15 20:58:52 Doctor Unassigned, No [facility] [place] DIAGNOSIS AND TREATMENT Name Medical Branch CONSENT/REFUSAL FOR 2020-06-15 20:58:52 Doctor Unassigned, No [facility] [place] DIAGNOSIS AND TREATMENT Name Medical Branch ASSIGNMENT OF BENEFITS 2020-06-15 20:58:37 Doctor Unassigned, No [facility] [place] Name Medical Branch ASSIGNMENT OF BENEFITS 2020-06-15 20:58:37 Doctor Unassigned, No [facility] [place] Name Medical Branch NOTICE OF PRIVACY 2020-06-15 20:58:21 Doctor Unassigned, No [facility] [place] [facility] Name Medical Branch NOTICE OF PRIVACY 2020-06-15 20:58:21 Doctor Unassigned, No [facility] [place] [facility] Name Medical Branch CONSENT/REFUSAL FOR 2020-06-15 20:58:08 Doctor Unassigned, No [facility] [place] DIAGNOSIS AND TREATMENT Name Medical Branch CONSENT/REFUSAL FOR 2020-06-15 20:58:08 Doctor Unassigned, No [facility] [place] DIAGNOSIS AND TREATMENT Name Medical Branch ASSIGNMENT OF BENEFITS 2020-06-15 20:57:50 Doctor Unassigned, No [facility] ASSIGNMENT OF BENEFITS 2020-06-15 20:57:50 Doctor Unassigned, No [facility] DSU PRE-OP 2020-06-15 06:01:00 Doctor Unassigned, No [facility] DSU PRE-OP 2020-06-15 06:01:00 Doctor Unassigned, No [facility] HEPATIC FUNCTION PANEL 2020-05-06 22:56:00 [facility] ([id number]) (ALB,T.PRO,BILI Medical [place] T,BU/BC,ALT,AST,ALK PHOS) BASIC METABOLIC PANEL 2020-05-06 22:56:00 [facility] ([facility], K, CL, CO2, GLUCOSE, Medica l Branch BUN, CREATININE, CA) XR CHEST 1 VW 2020-05-06 21:44:02 Asaf [facility] LIPASE 2020-05-06 21:40[facility] 2020-[facility]-06 21:40:00 Asaf [facility] CBC WITH DIFF 2020-05-06 21:40:00 Asaf [facility] URINALYSIS 2020-05-06 21:32:00 [facility] (ID NOW RAPID 2020-05-06 21:32:00 [facility] TESTING) [facility] NOTICE OF PRIVACY 2020-05-06 21:14:50 Doctor Unassigned, No [facility] PRACTICES Name [facility] CONSENT/REFUSAL FOR 2020-05-06 21:14:25 [facility] CT ABDOMEN PELVIS W 2020-03-26 06:12:05 Erasmo Grayson [facility] CONTRAST Medical Branch URINALYSIS 2020-03-26 05:02:00 Erasmo Grayson [facility] LIPASE 2020-03-26 03:38:00 Erasmo Grayson [facility] COMP. METABOLIC PANEL 2020-03-26 03:38:00 Erasmo Grayson [facility] ([id number]) Medical Branch CBC WITH DIFF 2020-03-26 03:38:00 Erasmo Grayson [facility] COVID-19 (ID NOW RAPID 2020-03-26 03:38:00 Erasmo Grayson [facility] TESTING) Medical Branch CONSENT/REFUSAL FOR 2020-03-26 02:58:31 Doctor Unassigned, No [facility] DIAGNOSIS AND TREATMENT Name Medical Branch REFERRAL- 2020-03-18 06:01:00 Doctor Unassigned, No [facility] REQUEST/RESPONSE Name Medical Branch MR BRAIN WO CONTRAST 2020-02-08 13:47:00 Monet Dominguez [facility] BASIC METABOLIC PANEL 2020-02-07 08:51:00 [facility] (NA, K, CL, CO2, GLUCOSE, Medica l Branch BUN, CREATININE, CA) CBC WITH DIFF 2020-02-07 08:51:00 [facility]. METABOLIC PANEL 2020-02-05 09:37:00 Juan Luis lesly [facility] ([id number]) [facility] CBC WITH DIFF 2020-02-05 09:37:00 Juan Luis lesly [facility] MR CERVICAL SPINE WO 2020-02-05 00:24:54 Get Aguillon [facility] CONTRAST [facility] MAGNESIUM 2020-02-04 10:01:00 Juan Luis lesly [facility] COMP. METABOLIC PANEL 2020-02-04 10:01:00 Juan Luis lesly [facility] ([id number]) Medical Branch CBC WITH DIFF 2020-02-04 10:01:00 Get Aguillon [facility] N-TERMINAL PRO-BNP 2020-02-04 10:01:[address] [facility] BLOOD CULTURE SCREEN 2020-02-03 22:19:00 Alex Mcknight [facility] RENAL ARTERY DUPLEX BY 2020-02-03 17:42:39 Alex Mcknight [facility] VASCULAR LAB [facility] AMMONIA, PLASMA 2020-02-03 17:06:00 Juan Luis lesly [facility] SMOOTH MUSCLE AB,IGG 2020-02-03 16:43:00 Kenroy Hawkins [facility] W/REFLEX [facility] OCCULT (GUAIAC) BLOOD 2020-02-03 16:42:00 Alex Mcknight [facility] PHOSPHORUS 2020-02-03 08:45:00 Juan Luis lesly [facility] CREATINE KINASE 2020-02-03 08:45:[address] [facility] URIC ACID 2020-02-03 08:45:[address] [facility] MAGNESIUM 2020-02-03 08:45:[address] [facility] COMP. METABOLIC PANEL 2020-02-03 08:45:00 Alex Mcknight [facility] ([id number]) [facility] CBC WITH DIFF 2020-02-03 08:45:[address] [facility] N-TERMINAL PRO-BNP 2020-02-03 08:45:[address] [facility] BLOOD CULTURE SCREEN 2020-02-02 20:19:00 Alex Mcknight [facility] BLOOD CULTURE SCREEN 2020-02-02 19:58:00 Alex Mcknight [facility] CERULOPLASMIN 2020-02-02 19:58:00 Kenroy [facility] VALPROIC ACID, FREE 2020-02-02 19:58:00 Alex Mcknight [facility] PROTHROMBIN TIME / INR 2020-02-02 19:58:00 [facility] ANTI-NUCLEAR ANTIBODY 2020-02-02 19:58:00 Kenroy Hawkins [facility] SCREEN [facility] HEPATITIS B SURFACE 2020-02-02 19:58:00 Alex Mcknight [facility] ANTIBODY [facility] HEPATITIS B SURFACE 2020-02-02 19:58:00 Alex Mcknight [facility] ANTIGEN [facility] HCV ANTIBODY 2020-02-02 19:58:00 Juan Luis lesly [facility] HAV ANTIBODY (IGG AND 2020-02-02 19:58:00 Alex Mcknight [facility] IGM) [facility] PROCALCITONIN 2020-02-02 19:58:[address] [facility] BLOOD CULTURE WORKUP 2020-02-02 19:58:00 Alex Mcknight [facility] CREATINE KINASE 2020-02-02 11:31:[address] [facility] LIPASE 2020-02-02 11:31:00 [facility]. METABOLIC PANEL 2020-02-02 11:31:00 [facility] ([id number]) [facility] LIPID PANEL ([id number])(TOTAL 2020-02-02 11:31:00 Alex Mcknight [facility] CHOLESTEROL, [facility] TRIGLYCERIDES, HDL) LITHIUM 2020-02-02 11:31:00 [facility] POCT GLUCOSE (AUTOMATED) 2020-02-02 11:24:[address] [facility] LIPASE 2020-02-02 08:21:00 Pasha Hinojosa [facility] COMP. METABOLIC PANEL 2020-02-02 08:21:00 [facility] ([id number]) [facility] LITHIUM 2020-02-02 08:21:00 Pasha Hinojosa [facility] CBC WITH DIFF 2020-02-02 08:21:00 Pasha Hinojosa [facility] GLYCOSYLATED HEMOGLOBIN 2020-02-02 08:21:00 Alex Mcknight [facility] (A1C) [facility] ACUTE CARE VENOUS BLOOD 2020-02-01 19:23:00 Pasha Hinojosa [facility] GAS [facility] US ABDOMEN COMPLETE 2020-02-01 16:39:39 [facility] POCT GLUCOSE (AUTOMATED) 2020-02-01 12:46:[address] [facility] LIPASE 2020-02-01 10:09:00 [facility] COMP. METABOLIC PANEL 2020-02-01 10:09:00 [facility] ([id number]) [facility] LITHIUM 2020-02-01 10:09:00 [facility] CBC WITH DIFF 2020-02-01 10:09:00 Micaela [facility] OSMOLALITY SERUM 2020-02-01 00:10:00 Micaela [facility] VITAMIN B12, LEVEL 2020-02-01 00:10:[address] [facility] FOLATE 2020-02-01 00:10:00 Micaela [facility] ABG+COOX+NA+K+GLU+CA2+ 2020-01-31 20:39:00 Kirstin Ron [facility] BLOOD CULTURE SCREEN 2020-01-31 18:21:00 Kirstin Ron [facility] IRON PANEL 2020-01-31 18:21:00 Micaela [facility] SALICYLATE 2020-01-31 18:21:00 [facility] LITHIUM 2020-01-31 18:21:00 [facility] VALPROIC ACID, TOTAL 2020-01-31 18:21:00 Kirstin [facility] BLOOD CULTURE WORKUP 2020-01-31 18:21:00 Kirstin Ron [facility] ADC OR PERICO ONLY - RPR 2020-01-31 18:21:00 [facility] POSITIVE BLOOD 2020-01-31 18:21:00 Kirstin Ron [facility] PATHOGENS DNA [facility] PROBE-AEROBIC XR ABDOMEN 1 VW 2020-01-31 17:09:26 [facility]ST 1 VW 2020-01-31 17:09:[address] [facility] HEAD WO CONTRAST 2020-01-31 16:58:10 Kirstin Ron [facility] URINALYSIS 2020-01-31 16:13:00 Asaf [facility] URINE CULTURE 2020-01-31 16:13:00 Asaf [facility] ADC / LCC - DRUG SCREEN 2020-01-31 16:13:00 Kirstin Ron [facility] TRIAGE Medical Branch COVID-19 (ID NOW RAPID 2020-01-31 16:00:00 [facility] LAB ONLY COVID 2020-01-31 16:00:00 Asaf [facility] INTERPRETATION [facility] BLOOD CULTURE SCREEN 2020-01-31 15:58:00 Kirstin Ron [facility] CREATINE KINASE 2020-01-31 15:58:00 Asaf [facility] LIPASE 2020-01-31 15:58:00 Asaf [facility] FERRITIN SERUM 2020-01-31 15:58:00 [facility] AMMONIA, PLASMA 2020-01-31 15:58:00 Asaf [facility] TROPONIN I 2020-01-31 15:58:00 Asaf [facility] THYROID STIMULATING 2020-01-31 15:58:00 Micaela [facility] HORMONE [facility] HEPATIC FUNCTION PANEL 2020-01-31 15:58:00 Asaf [facility] ([id number]) (ALB,T.PRO,BILI Medical Branch T,BU/BC,ALT,AST,ALK PHOS) BASIC METABOLIC PANEL 2020-01-31 15:58:00 [facility] (NA, K, CL, CO2, GLUCOSE, Medica l Branch BUN, CREATININE, CA) ETHANOL 2020-01-31 15:58:00 Asaf [facility] DIFF CONSULT 2020-01-31 15:58:00 [facility] CBC WITH DIFF 2020-01-31 15:58:00 Asaf [facility] RETICULOCYTES AUTOMATED 2020-01-31 15:58:00 Pasha Hinojosa [facility] N-TERMINAL PRO-BNP 2020-01-31 15:58:00 Kirstin Ron [facility] LACTIC ACID WHOLE BLOOD 2020-01-31 15:57:00 Kirstin [facility] LEAD 2020-01-31 15:48:34 [facility] EKG-12 LEAD 2020-01-31 15:40:40 Kirstin Ron [facility] NOTICE OF PRIVACY 2020-01-31 15:38:09 Doctor Unassigned, No [facility] PRACTICES [facility] CONSENT/REFUSAL FOR 2020-01-31 15:37:54 Doctor Unassigned, No [facility] EXTERNAL PROVIDER RECORDS 2020-01-31 05:01:00 Doctor Unassigned, No [facility] EMERGENCY DEPARTMENT 2020-01-31 05:01:00 Doctor Unassigned, No [facility] HOSPITAL ADM - MISC 2020-01-31 05:01:00 Doctor Unassigned, No Un [facility] HOSPITAL ADMISSION 2020-01-31 05:01:00 Doctor Unassigned, No Uni [facility] CT ABDOMEN PELVIS W 2019-12-18 22:11:19 Meka Hammonds [facility] CONTRAST [facility] URINALYSIS 2019-12-18 21:07:00 Meka Hammonds [facility] LIPASE 2019-12-18 20:39:00 Meka Hammonds [facility] TROPONIN I 2019-12-18 20:39:00 Meka Hammonds [facility] HEPATIC FUNCTION PANEL 2019-12-18 20:39:00 Meka Hammonds [facility] ([id number]) (ALB,T.PRO,BILI Medical Branch T,BU/BC,ALT,AST,ALK PHOS) BASIC METABOLIC PANEL 2019-12-18 20:39:00 Meka Hammonds [facility] (NA, K, CL, CO2, GLUCOSE, Medica l Branch BUN, CREATININE, CA) CBC WITH DIFF 2019-12-18 20:39:00 Meka Hammonds [facility] CONSENT/REFUSAL FOR 2019-12-18 20:15:38 Doctor Unassigned, No [facility] DIAGNOSIS AND TREATMENT Name [facility] XR CHEST 1 VW COVID 2019-08-22 01:15:45 rEasmo Grayson [facility] LIPASE 2019-08-22 01:00:00 Erasmo Grayson [facility] TROPONIN I 2019-08-22 01:00:00 Erasmo Grayson [facility] COMP. METABOLIC PANEL 2019-08-22 01:00:00 Erasmo Grayson [facility] ([id number]) [facility] CBC WITH DIFFERENTIAL 2019-08-22 01:00:00 Erasmo Grayson [facility] PROTHROMBIN TIME / INR 2019-08-22 01:00:00 Erasmo Grayson [facility] ACTIVATED PARTIAL 2019-08-22 01:00:00 Erasmo Grayson [facility] THRMPLAS [facility] URINALYSIS 2019-08-22 01:00:00 Erasmo Grayson [facility] CORONAVIRUS COVID-19 2019-08-22 01:00:00 Erasmo Grayson [facility] TESTING [facility] EKG-12 LEAD 2019-08-22 00:52:01 Erasmo Grayson [facility] CONSENT/REFUSAL FOR 2019-08-22 00:30:30 Doctor Unassigned, No [facility] [place] DIAGNOSIS AND TREATMENT Name Medical Branch LIPASE 2019-06-25 22:49:00 Asaf [facility] TROPONIN I 2019-06-25 22:49:00 [facility] HEPATIC FUNCTION PANEL 2019-06-25 22:49:00 [facility] Kirstin [facility] ([id number]) (ALB,T.PRO,BILI Medical Branch T,BU/BC,ALT,AST,ALK PHOS) BASIC METABOLIC PANEL 2019-06-25 22:49:00 [facility] Kirstin [facility] (NA, K, CL, CO2, GLUCOSE, Medica l Branch BUN, CREATININE, CA) CBC WITH DIFFERENTIAL 2019-06-25 22:49:00 Asaf [facility] EKG-12 LEAD 2019-06-25 22:33:31 Asaf [facility] URINALYSIS 2019-06-25 22:13:00 Singer [facility] LIPASE 2019-06-19 20:30:00 Natalia [facility] TEST, SERUM 2019-06-19 20:30:00 Natalia [facility] HEPATIC FUNCTION PANEL 2019-06-19 20:30:00 Natalia [facility] ([id number]) (ALB,T.PRO,BILI Medical Branch T,BU/BC,ALT,AST,ALK PHOS) BASIC METABOLIC PANEL 2019-06-19 20:30:00 Natalia [facility] (NA, K, CL, CO2, GLUCOSE, Medica l Branch BUN, CREATININE, CA) CBC WITH DIFFERENTIAL 2019-06-19 20:30:00 Natalia [facility] URINALYSIS 2019-06-19 20:30:00 Natalia [facility] CONSENT/REFUSAL FOR 2019-06-19 19:35:06 Doctor Unassigned, No [facility]MENT [facility] [place] [facility] [place] CT ABDOMEN PELVIS W 2019-05-20 02:03:54 Gary Skaggs [facility] CONTRAST Medical Branch LIPASE 2019-05-20 01:07:00 Singer [facility] COMP. METABOLIC PANEL 2019-05-20 01:07:00 [facility] ([id number] Medical Branch CBC WITH DIFFERENTIAL 2019-05-20 01:07:[address] [facility] [place] URINALYSIS 2019-05-20 01:07:00 Singer [facility] NOTICE OF PRIVACY 2019-05-20 00:08:29 Doctor Unassigned, [facility] PRACTICES [facility] CONSENT/REFUSAL FOR 2019-05-20 00:08:14 Doctor Unassigned, [facility] TREATMENT Name Medical Branch CT ANKLE RIGHT WO 2018-12-05 16:22:01 Ector Frank [facility] XR FOOT 3+ VW RIGHT 2018-12-01 19:59:31 Jaki Polanco [facility] XR TIBIA FIBULA 2 VW 2018-12-01 19:59:07 Jaki Polanco [facility] Branch BASIC METABOLIC PANEL 2018-11-16 09:31:00 [facility] (NA, K, CL, CO2, GLUCOSE, [facility] BUN, CREATININE, CA) CBC WITH DIFFERENTIAL 2018-11-16 09:31:00 [facility] ABORH CONFIRMATION 2018-11-16 00:34:00 [facility]INE CULTURE 2018-11-16 00:00:00 [facility] URINALYSIS 2018-11-15 23:58:00 [facility] TYPE AND SCREEN 2018-11-15 23:00:00 [facility] TROPONIN I 2018-11-15 21:08:00 [facility] LIPID PANEL ([id number])(TOTAL 2018-11-15 21:08:00 [facility] CHOLESTEROL, [facility] TRIGLYCERIDES, HDL) CT ABDOMEN PELVIS W 2018-11-15 16:32:45 Farshad Ramirez [facility] CONTRAST [facility] HELICOBACTER PYLORI AB, 2018-11-15 15:51:00 [facility]GG [facility] HEPATITIS B SURFACE 2018-11-15 15:51:00 Farshad Ramirez [facility] ANTIBODY Medical Branch HCV ANTIBODY 2018-11-15 15:51:00 Farshad Ramirez [facility] HEPATITIS A VIRUS 2018-11-15 15:51:00 Farshad Ramirez [facility] ANTIBODY IGM [facility] HEPATITIS B CORE ANTIBODY 2018-11-15 15:51:00 Farshad Ramirez [facility] IGM Medical Branch ACETAMINOPHEN 2018-11-15 15:50:00 Farshad Ramirez [facility] XR CHEST 1 VW 2018-11-15 15:08:18 Farshad Ramirez [facility] LIPASE 2018-11-15 14:40:00 Farshad Ramirez [facility] TROPONIN I 2018-11-15 14:40:00 Farshad Ramirez [facility] HEPATIC FUNCTION PANEL 2018-11-15 14:40:00 Farshad Ramirez [facility] ([id number]) (ALB,T.PRO,BILI Medical Branch T,BU/BC,ALT,AST,ALK PHOS) BASIC METABOLIC PANEL 2018-11-15 14:40:00 [facility] Center[facility] (NA, K, CL, CO2, GLUCOSE, Medica l Branch BUN, CREATININE, CA) CBC WITH DIFFERENTIAL 2018-11-15 14:40:00 JamesMissouri Rehabilitation CenterFarshad [facility] GLYCOSYLATED HEMOGLOBIN 2018-11-15 14:40:00 [facility] PROTHROMBIN TIME / INR 2018-11-15 14:40:00 Farshad Ramirez [facility] ACTIVATED PARTIAL 2018-11-15 14:40:00 James [facility] N-TERMINAL PRO-BNP 2018-11-15 14:40:[address] [facility] EKG-12 LEAD 2018-11-15 14:26:03 Farshad Ramirez [facility] CONSENT/REFUSAL FOR 2018-11-15 14:13:05 Doctor Unassigned, No Un [facility] DIAGNOSIS AND TREATMENT Name Medical Branch Encounters Start End Encounter Admission Attending Care Care Encounter Source Date/Time Date/Time Type Type Clinicians Facility Department ID 2021-02-14 Emergency [facility] [id number] Univers 04:18:26 ity [facility] 2021-02-13 Emergency [facility] [id number] Univers 23:26:14 ity [facility] 2021-02-13 Emergency [facility] [id number] Univers 17:26:50 ity [facility] 2021-02-13 Emergency [facility] [id number] Univers 04:32:53 ity of [facility] 2021-02-13 Emergency [facility] [id number] Univers 03:03:18 ity of [facility] 2021-02-12 Emergency [facility] [id number] Univers 14:48:39 ity of [facility] 2021-02-12 Emergency [facility] [id number] Univers 08:37:59 ity of [facility] 2021-02-12 Outpatient R VERA [facility] JARR[facility] [id number] Univers 02:51:20 MOISE ity of [facility] 2021-02-12 Outpatient R VERA [facility] JARR[facility] [id number] Univers 02:51:17 MOISE ity of [facility] 2021-02-12 [facility] [id number] Univers 02:50:49 MOISE ity of [facility] 2021-02-11 Emergency [facility] [id number] Univers 18:57:51 ity of [facility] 2021-02-11 Emergency [facility] [id number] Univers 10:52:36 ity of [facility] 2021-02-10 Emergency [facility] [id number] Univers 23:34:27 ity of [facility] 2021-02-10 Emergency [facility] [id number] Univers 16:03:46 ity of [facility] 2021-02-09 Emergency [facility] [id number] Univers 14:07:13 ity of [facility] 2021-02-09 Emergency [facility] [id number] Univers 13:02:51 ity of [facility] 2021-01-21 Outpatient PENNY, [facility] [id number] [facility] 22:26:45 GOTTI 2021-01-21 Inpatient ER NGUYỄN, [facility] Gastro [id number] [facility]H 22:24:24 2021-01-21 Outpatient PENNY, [facility] Surgery [id number] [facility] 18:10:30 GOTTI 2020-08-26 Inpatient ER NGUYỄN, BRAULIO [facility] Med [id number] [facility] 02:30:00 2022-01-02 2022-01-02 Outpatient R WU [facility] [id number] Univers 10:00:00 10:00:00 VIRA [id number] [facility] 2022-01-02 2022-01-02 Outpatient R WU [facility] [id number] Univers 10:00:00 10:00:00 VIRA [facility] 2021-03-25 2021-03-25 Emergency [facility] ERT [id number] Univers 18:03:00 21:41:00 CONSUELO [facility] 2021-03-25 2021-03-25 Emergency [facility] [id number] Univers 18:03:00 21:41:00 Consuelo [facility] [id number] i ty of [place] [id number] [facility] [id number] [address] 2021-03-25 2021-03-25 Outpatient R [facility] [id number] Univers 17:30:00 17:30:00 [id number] [facility] 2021-03-25 2021-03-25 Outpatient R [facility] [id number] Univers 11:40:00 11:23:42 OLGA LIDIA [facility] 2021-03-25 2021-03-25 Imm/Inj Vaccine, Ang Db [facility] [id number] .[id number] Univers 11:00:13 11:10:13 Visit [facility] [id number] ity [facility] [id number] Archie as BALAJI?BLEA [id number] [address] MEDICAL OFFICE BUILDING 2021-03-21 2021-03-21 ambulatory STLMLC STLMLC [id number] [facility] 00:[facility] 00:00:00 Korina Steven ent Clinics 2021-03-20 2021-03-20 Emergency X [facility] ERT [id number] Univers 16:03:00 19:39:00 MEKA [facility] 2021-03-20 2021-03-20 Emergency [facility] [id number] Univers 16:03:00 19:39:00 Meka MARCUM [id number] ity of [place] [id number] [facility] [id number] [address] 2021-02-12 2021-02-12 Emergency X [facility] ERT [id number] Univers 14:09:00 21:08:00 ROSALINDA ity of [facility] 2021-02-12 2021-02-12 Emergency [facility] [id number] Univers 14:09:00 21:08:00 Rosalinda Upton JOSSUE [id number] ity of [place] [id number] [facility] [id number] [address] 2021-01-30 2021-01-30 Outpatient [facility] [id number] Univers 10:00:00 10:00:00 VIRA [id number] ity of [facility] 2021-01-17 2021-01-18 Emergency [facility] [id number] Univers 21:29:00 01:13:00 Maru Marcum [id number] ity of [place] [id number] [facility] [id number] [address] 2021-01-17 2021-01-17 Orders Doctor JAQUELIN [id number] Univers 00:00:00 00:00:00 Only Unassigned, KATHIE [id number] ity of [place] [facility] [id number] Archie as [phone] [place] [address] Branch 2021-01-07 2021-01-07 [facility] [id number] Univers 11:38:27 23:59:00 [facility] [id number] ity of [place] [id number] Archie as Balaji?Blea [id number] [place] [id number] [place] [facility] 2021-01-07 2021-01-07 Urgent Consuelo Avendaño [facility] [id number] Univers 11:22:24 11:55:26 Care [facility] [id number] ity of [place] [id number] Archie as Balaji?Blea [id number] [place] [address] [facility] 2021-01-07 2021-01-07 Outpatient R [facility] [id number] Univers 11:40:00 11:40:00 [id number] ity of [facility] 2021-01-07 2021-01-07 Outpatient R [facility] [id number] Univers 11:40:00 11:40:00 KORINA ity [facility] 2021-01-07 2021-01-07 Letter JAQUELIN [place] [id number] Univers 00:00:00 00:00:00 (Out) Karlene Hawley KATHIE [id number] i [facility] [id number] Arhcie as [id number] [facility] [address] [place] 2021-01-02 2021-01-02 Outpatient R [facility] [id number] Univers 00:00:00 00:00:00 VIRA [id number] [facility] 2020-12-30 2020-12-30 Emergency [facility] [id number] Univers 13:14:00 17:53:00 Maru Marcum [id number] [id number] [place] [id number] [facility] [address] [place] 2020-12-30 2020-12-30 Office Count includes the [facility] 1.2.840.114 [id number] Univers 10:00:12 10:49:11 Visit Vira Marcum 350.1.13.10 [place]2.7.2.686 [place] [facility] [phone] [place] hernández 134 [facility] 2020-12-30 2020-12-30 Outpatient R [facility] [id number] -[id number] Univers 08:30:00 08:30:00 VIRA [id number] ity [facility] 2020-12-30 2020-12-30 Outpatient R AD, [facility] [id number] Univers 08:30:00 08:30:00 VIRA [facility] 2020-12-23 2020-12-23 [facility] [place] 1.2.840.114 [id number] Univers 15:59:00 23:59:00 Encounter Vira Marcum 350.1.13.10 ity of [place] 4.2.7.2.686 [facility] [id number] [facility] [address] 2020-12-23 2020-12-23 Outpatient R AD, [facility] [id number] -20 Univers 00:00:00 00:00:00 [facility]IRA [id number] [facility] 2020-12-23 2020-12-23 Outpatient R [facility], [facility] [id number] Univers 00:00:00 00:00:00 VIRA [facility] 2020-12-16 2020-12-16 [facility] 1.2.840.114 [id number] Univers 09:56:42 11:11:19 Visit Vira Marcum 350.1.13.10 ity [facility] 4.2.7.2.686 [facility] [phone] Nm dical nal 134 [facility] 2020-12-16 2020-12-16 Outpatient R [facility], [facility] [id number] -[id number] Univers 10:00:00 10:00:00 VIRA [id number] [facility] 2020-12-16 2020-12-16 Outpatient R [facility], [facility] [id number] Univers 10:00:00 10:00:00 VIRA [facility] 2020-12-14 2020-12-14 Outpatient [facility] [id number] [facility]00 Korina linda Outpati ent Clinics 2020-12-05 2020-12-05 Emergency [facility] 1.2.840.114 [id number] Univers 14:07:00 18:52:00 Eliana Marcum 350.1.13.10 ity [facility] 4.2.7.2.686 [facility] [id number] [facility] [address] 2020-11-10 2020-11-10 Outpatient [facility] [id number] [facility] 2020-10-11 2020-10-12 Emergency Ramirez Farshadolga Denis 1.2.840. 114 [id number] 08:30:00 20:40:00 Kadi Duggan 350.1.13.10 [facility] 4.2.7.2.686 [id number] 09 2020-10-11 2020-10-12 Emergency Farshad Ramirez 1.2.840. 114 [id number] [facility] 08:30:00 20:40:00 Kadi Duggan 350.1.13.10 ity [facility] 4.2.7[address] [place] [phone] [facility] [address] 2020-10-04 2020-10-[address] [facility] 1.2.097.888 [id number] 17:45:00 20:23:00 Rosanna R [place] 350.1.13.10 [place] 4.2.7.2.686 [place] [id number] 084 2020-10-04 2020-10-[address] [facility] 1.2.966.796 [id number] [facility] 17:45:00 20:23:00 Rosanna R [place] 350.1.13.10 i ty of [place] 4.2.7.2.686 [facility] [id number] [facility] [address] 2020-09-30 2020-09-30 Outpatient [facility] [id number] [facility] 2020-09-29 2020-09-29 Outpatient [facility] [id number] [facility] 2020-09-19 2020-09-19 Outpatient [facility] [id number] [facility] 2020-09-16 2020-09-16 [facility] [id number] [facility] 2020-09-02 2020-09-02 [facility] [id number] [facility] 2020-08-05 2020-08-05 Emergency [facility] 1.2.840.114 [id number] 08:16:00 09:12:00 Maru Marcum 350.1.13.10 [place] 4.2.7.2.686 [place] [id number] [facility] 2020-08-05 2020-08-05 [facility] 1.2.840.114 [id number] [facility] 08:16:00 09:12:00 Maru Marcum 350.1.13.10 ity [facility] 4.2.7.2.686 [facility] [id number] [address] 2020-07-19 2020-07-19 Outpatient Colette MARSH, [facility] [id number] [facility] 11:20:00 11:20:00 SULAIMAN ity of [facility] 2020-07-18 2020-07-18 [facility] 1.2.840.114 [id number] 06:28:00 08:29:00 Encounter Moise Marcum 350.1.13.10 [place] 4.2.7.2.686 Surgical [id number] [place] [address] 2020-07-18 2020-07-18 [facility] 1.2.840.114 [id number] [facility] 06:28:00 08:29:00 Encounter Moise Marcum 350.1.13.10 ity [facility] 4.2.7.2.686 [facility] [phone] [address] 2020-07-18 2020-07-18 Surgery [facility] 1.2.840.114 [id number] 07:30:00 08:00:00 [place] 350.1.13.10 [place] 4.2.7.2.686 Surgical [id number] [place] [address] 2020-07-18 2020-07-18 [facility] 1.2.745.127 [id number] Univers 07:30:00 08:00:00 Moise Goodman Jossue 350.1.13.10 ity of [place] 4.2.7.2.686 [facility] Surgical [id number] [facility] [address] 2020-07-15 2020-07-15 Outpatient R [facility] [id number] -[id number] Univers 08:00:00 08:00:00 [id number] ity [facility] 2020-07-15 2020-07-15 Outpatient [facility] [id number] Univers 08:00:00 08:00:00 MOISE [facility] 2020-07-11 2020-07-11 Outpatient R [facility] [id number] Univers 12:00:00 12:00:00 ity [facility] 2020-07-08 2020-07-08 Outpatient [facility] [id number] Univers 10:40:00 10:40:00 SULAIMAN [facility] 2020-07-07 2020-07-07 Emergency Jaki Polanco [facility] 1.2.840.114 [id number] 18:47:00 22:05:00 Sydnie Marcum 350.1.13.10 [place] 4.2.7.2.686 [place] [id number] [facility] 2020-07-07 2020-07-07 Emergency Jaki Polanco [facility] 1.2.840.114 [id number] Univers 18:47:00 22:05:00 Sydnie Marcum 350.1.13.10 i ty of [place] 4.2.7.2.686 [facility] [phone] [address] 2020-07-07 2020-07-07 Orders Doctor JAQUELIN 1.2.840.114 [id number] 00:00:00 00:00:00 Only Unassigned, KATHIE 350.1.13.10 [place] [facility] 4.2.7.2.686 [id number] 2020-07-07 2020-07-07 Orders Doctor JAQUELIN 1.2.840.114 [id number] Univers 00:00:00 00:00:00 Only Unassigned, KATHIE 350.1.13.10 ity of [place] [facility] 4.2.7.2.686 Archie as [phone] [address] 2020-07-07 2020-07-07 Outpatient STLMLC ST[facility]C [id number] [facility] 00:00:00 00:00:00 Korina linda [facility] Clin[facility] 2020-07-04 2020-07-04 [facility] 1.2.840.114 [id number] 06:30:00 08:44:00 Encounter Moise Goodman Jossue 350.1.13.10 [place] 4.2.7.2.686 Surgical [id number] [place] [address] 2020-07-04 2020-07-04 [facility] 1.2.840.114 [id number] [facility] 06:30:00 08:44:00 Encounter Moise Maxine Jossue 350.1.13.10 it[place].2.[place] Surgical [id number] [address] 2020-07-04 2020-07-04 Orders Doctor JAQUELIN 1.2.840.114 [id number] 00:00:00 00:00:00 Only Unassigned, KATHIE 350.1.13.10 [place] [facility] 4.2.7.2.686 [id number] [facility] 2020-07-04 2020-07-04 Orders Doctor JAQUELIN 1.2.840.114 [id number] Univers 00:00:00 00:00:00 Only Unassigned, KATHIE 350.1.13.10 ity of [place] [facility] 4.2.7.2.686 Archie as [phone] [address] 2020-07-01 2020-07-01 Laboratory Only, [facility] 1.2.840.114 [id number] 09:02:10 09:17:10 Only Test [place] 350.1.13.10 [place] 4.2.7.2.686 [place] [id number] 353 2020-07-01 2020-07-01 Laboratory Only, Adc Test [facility] 1.2.840. 114 [id number] Univers 09:02:10 09:17:10 Only Moise Gamez [place] 350.1.13.1 0 ity of [place] 4.2.7.2.686 [facility] [id number] [address] 2020-07-01 2020-07-01 Outpatient R [facility] [id number] -[id number] Univers 08:30:00 08:30:00 [id number] ity of [facility] 2020-07-01 2020-07-01 Outpatient [facility] [id number] [facility] 08:30:00 08:30:00 MOISE ity [facility] 2020-07-01 2020-07-01 Orders Doctor JAQUELIN 1.2.840.114 [id number] 00:00:00 00:00:00 Only Unassigned, KATHIE 350.1.13.10 [place] [facility] 4.2.7.2.686 [id number] 009 2020-07-01 2020-07-01 Orders Doctor JAQUELIN 1.2.840.114 [id number] Univers 00:00:00 00:00:00 Only Unassigned, KATHIE 350.1.13.10 ity of [place] [facility] 4.2.7.2.686 Archie [id number] [address] 2020-06-30 2020-06-30 [facility] [id number] 2020-06-22 2020-06-22 [facility] [id number] [facility] 2020-06-20 2020-06-20 [facility] Vera, [facility] 1.2.840.114 [id number] 06:29:00 08:58:00 Encounter Moise S [place] 350.1.13.10 [place] 4.2.7.2.686 Surgical [id number] [place] 071 2020-06-20 2020-06-20 [facility] 1.2.840.114 [id number] Univers 06:29:00 08:58:00 Encounter Moise Goodman [place] 350.1.13.10 it[place] of [place] 4[place]2.7.2.686 [place] Surgical [id number] [facility] [address] 2020-06-20 2020-06-20 Anesthesia Abe Arana [facility] 1.2.840.11 [id number] 08:03:00 08:12:00 Event Dominguez Seo [place] 350.1.13.10 [place] 4.2.7.2.686 Surgical [id number] [place] 020 2020-06-20 2020-06-20 Anesthesia Abe Arana [facility] 1.2.840.11 [id number] [facility] 08:03:00 08:12:00 Event Dominguez Seo [place] 350.1.13.10 it[place] of [place]2.7.2.[place] Surgical [id number] [facility] [address] 2020-06-20 2020-06-20 Orders Doctor HAMMER 1.2.840.114 [id number] 00:00:00 00:00:00 Only Unassigned, KATHIE 350.1.13.10 [place] [facility] 4.2.7.2.686 [id number] [facility] 2020-06-20 2020-06-20 Orders Doctor JAQUELIN 1.2.840.114 [id number] [facility] 00:00:00 00:00:00 Only Unassigned, KATHIE 350.1.13.10 ity of [place] [facility] 4.2.7.2.686 Archie as [phone] [address] 2020-06-19 2020-06-19 Outpatient [facility] [id number] Univers 08:15:00 08:15:00 ity of [facility] 2020-06-17 2020-06-17 Irrigator Overhead Marcie Johnson [facility] 1.2.840.114 [id number] 15:27:53 15:42:53 Visit Lab Main [place] 350.1.13.10 [place] 4.2.7.2.686 Professio [id number] [address] 2020-06-17 2020-06-17 Irrigator Overhead Elizabeth, [facility] Lab Main [facility] 1.2.8 40.114 [id number] [facility] 15:27:53 15:42:53 Visit Moise Gamez [place] 350.1.13.1 0 ity of [place] 4.2.7.2.686 [facility] Professio [phone] Nm dical [address] 2020-06-17 2020-06-17 Laboratory Only, [facility] 1.2.840.114 [id number] 15:26:19 15:41:19 Only Test [place] 350.1.13.10 [place] 4.2.7.2.686 [place] [phone] [facility] 2020-06-17 2020-06-17 Laboratory Only, [facility] Test [facility] 1.2.840. 114 [id number] [facility] 15:26:19 15:41:19 Only Moise Gamez 350.1.13.1 0 ity of [place] 4.2.7.2.686 [facility] [phone] [address] 2020-06-17 2020-06-17 Outpatient R VERA [facility] [id number] Univers 12:30:00 12:30:00 MOISE ity [facility] 2020-06-17 2020-06-17 Outpatient R [facility] [id number] -[id number] Univers 12:15:00 12:15:00 [id number] ity [facility] 2020-06-17 2020-06-17 Orders Doctor HAMMER 1.2.840.114 [id number] 00:00:00 00:00:00 Only UnassignedKATHIE 350.1.13.10 [place] [facility] 4.2.7.2.686 [id number] 009 2020-06-17 2020-06-17 Orders Doctor HAMMER 1.2.840.114 [id number] Univers 00:00:00 00:00:00 Only Unassigned, KATHIE 350.1.13.10 ity of [facility] 4.2.7.2.686 Archie as [phone] [facility] [address] 2020-05-22 2020-05-22 Outpatient R SALMA, [facility] [id number] Univers 08:50:00 08:50:00 SULAIMAN ity of [facility] 2020-05-06 2020-05-06 Emergency [facility], [facility] 1.2.840.114 [id number] 15:21:00 18:38:00 Kirstin [place] 350.1.13.10 [place] 4.2.7.2.686 [place] [id number] [facility] 2020-05-06 2020-05-06 Emergency [facility], [facility] 1.2.840.114 [id number] Univers 15:21:00 18:38:00 Kirstin [place] 350.1.13.10 i ty of [place] 4.2.7.2.686 [place] [phone] [facility] [address] 2020-05-04 2020-05-04 Outpatient R [facility] [id number] -[id number] Univers 09:20:00 09:20:00 [id number] ity of [facility] 2020-05-04 2020-05-04 Outpatient R [facility] [id number] Univers 09:20:00 09:20:00 ity of [facility] 2020-05-04 2020-05-04 Laboratory Lab, [facility] 1.2.840.114 [id number] 08:54:13 09:14:13 Only Fam Pob I Health 350.1.13.10 [place] 4.2.7.2.686 Professio [id number] [place] [address] [address] [employer] 2020-05-04 2020-05-04 Laboratory Lab, [facility] Fam Pob I [facility] 1.2. 840.114 [id number] Univers 08:54:13 09:14:13 Only Anene, [facility] 350.1.13.10 ity of [place] 4.2.7.2.686 Archie as Professio [id number] Nm dical [address] [employer] [facility] [employer] 2020-04-14 2020-04-14 Jeannie Elizabeth 1.2.840.114 [id number] 00:00:00 00:00:00 (Out) KATHIE 350.1.13.10 HOSPITAL 4.2.7.2.686 [id number] [id number] 2020-04-14 2020-04-14 Jeannie Elizabeth 1.2.840.114 [id number] Univers 00:00:00 00:00:00 (Out) KATHIE 350.1.13.10 it y of HOSPITAL 4.2.7.2.686 Archie as [id number] [facility] [address] 2020-03-25 2020-03-26 [facility] 1.2.455.449 [id number] 21:13:00 02:01:00 Erasmo [place] 350.1.13.10 [place] 4.2.7.2.686 [place] [id number] [facility] 2020-03-25 2020-03-26 [facility] 1.2.014.564 [id number] [facility] 21:13:00 02:01:00 Erasmo [place] 350.1.13.10 ity of [place] 4.2.7.2.686 [facility] [phone] [facility] [address] 2020-03-18 2020-03-18 Orders Doctor JAQUELIN 1.2.840.114 [id number] 00:00:00 00:00:00 Only Unassigned, KATHIE 350.1.13.10 [place] [facility] 4.2.7.2.686 [id number] 009 2020-03-18 2020-03-18 Orders Doctor JAQUELIN 1.2.840.114 [id number] Univers 00:00:00 00:00:00 Only Unassigned, KATHIE 350.1.13.10 ity of [place] [facility] 4.2.7.2.686 Archie as [id number] [facility] [address] 2020-03-08 2020-03-08 [facility] [id number] [facility] 00[facility]00 [facility] 2020-03-07 2020-03-07 [facility] [id number] [facility] 2020-01-31 2020-02-08 [facility] 1.2.840.1 14 [id number] 10:39:00 16:12:00 Encounter [facility] 350.1.13.10 [address] [facility] [phone] [place] [address] ([facility]) 2020-01-31 2020-02-08 [facility] 1.2.840.1 [id number] [facility] 10:39:00 16:12:00 Encounter [facility] 350.1.13.10 ity of [place] H[place] 4.2.7.2.686 [facility] [phone] [address] ([facility]) 2020-01-11 2020-01-11 [facility] [id number] [facility] 2020-01-06 2020-01-06 [facility] [id number] [facility]00 [facility] 2019-12-18 2019-12-[address] [facility] ([place], [place]) 1.2.420.278 [id number] 15:26:00 19:16:00 Meka Marcum 350.1.13.10 [place] 4.2.7.2.686 [place] [phone] [facility] 2019-12-18 2019-12-[address] [facility] ([place], [place]) 1.2.027.240 [id number] [facility] 15:26:00 19:16:00 Meka Marcum 350.1.13.10 ity [place] 4.2.7.2.686 [facility] [phone] [address] 2019-10-06 2019-10-06 [facility] [id number] 10:40:00 10:40:00 t Beyer [facility] s [facility] Medicine [facility] Outpati ent Clinics 2019-09-17 2019-09-17 [facility] [id number] 10:24:00 10:24:00 [employer] [facility] ent [facility] 2019-08-21 2019-08-21 Emergency [facility] 1.2.053.729 [id number] 19:42:19 23:51:00 Erasmo Marcum 350.1.13.10 [place] 4.2.7.2.686 [place] [id number] [facility] 2019-08-21 2019-08-21 Emergency X [facility], [facility], [facility] ERT [id number] Univers 19:42:19 23:51:00 ERASMO li [facility] 2019-08-21 2019-08-21 Emergency [facility] 1.2.850.987 [id number] Univers 19:42:19 23:51:00 Erasmo Marcum 350.1.13.10 ity of [place] 4.2.7.2.[address] [place] [id number] 2019-07-14 2019-07-14 [facility] [id number] 15:00:00 15:00:00 [employer] [facility] ent [facility] 2019-06-25 2019-06-25 Emergency [facility] 1.2.840.114 [id number] 16:52:11 20:04:00 Kirstin Marcum 350.1.13.10 [place] [address] [place] [address] [id number] [facility] 2019-06-25 2019-06-25 Emergency [facility] 1.2.840.114 [id number] [facility] 16:52:11 20:04:00 Kirstin Marcum 350.1.13.10 i ty of [place] 4.2.7.2.[address] [place] [phone] 2019-06-19 2019-06-19 [facility] 1.2.481.424 2020 2000 13:58:11 19:09:00 Rosalinda Marcum 350.1.13.10 [place] 4.2.7.2.686 [place] [phone] 4 2019-06-19 2019-06-19 [facility] 1.2.553.977 [id number] Univers 13:58:11 19:09:00 Rosalinda Upton [place]ossue 350.1.13.10 ity of [place] 4.2.7.2.686 [facility] [phone] [address] 2019-06-19 2019-06-19 Orders Doctor JAQUELIN 1.2.840.114 [id number] 00:00:00 00:00:00 Only Unassigned, KATHIE 350.1.13.10 [place] [facility] 4.2.7.2.68 [id number] 009 2019-06-19 2019-06-19 Orders Doctor HAMMER 1.2.840.114 [id number] Univers 00:00:00 00:00:00 Only Unassigned, KATHIE 350.1.13.10 ity of [place] [facility] 4.2.7.2.[address] [place] [id number] 2019-05-19 2019-05-19 Emergency [facility] 1.2.662.755 [id number] 18:29:04 21:26:00 Gary Marcum 350.1.13.10 [place] 4.2.7.2.686 [place] [id number] [facility] 2019-05-19 2019-05-19 Emergency [facility] [id number] Univers 18:29:04 21:26:00 GARY li [facility] 2019-05-19 2019-05-19 Emergency [facility] 1.2.653.811 [id number] Univers 18:29:04 21:26:00 Gary Marcum 350.1.13.10 i ty of [place] 4.2.7.2.[address] [place] [id number] 2019-03-02 2019-03-02 [facility] [id number] 10:40:00 10:40:00 [employer] [facility] 2019-02-04 2019-02-04 [facility] [id number] 10:55:00 10:55:00 t [employer] [facility] Outpati ent Clinics 2018-12-24 2018-12-24 [facility] 1.2.840.114 [id number] 00:00:00 00:00:00 Steven Chen 350.1.13.10 Surgical 4.2.7.2.686 Specialti [id number] es [address] [place] [address] 2018-12-24 2018-12-24 [facility] 1.2.840.114 [id number] Univers 00:00:00 00:00:00 Steven Chen 350.1.13.10 it y of Surgical 4.2.7.2.686 Archie as Specialti [phone] Nm dical es 198 [facility] 2018-12-18 2018-12-18 [facility] 1.2.840.114 [id number] [facility] 08:54:57 23:59:00 Encounter Steven Chen 350.1.13.10 ity of Surgical 4.2.7.2.686 Archie as Specialti [phone] Nm dical es 809 [facility] 2018-12-18 2018-12-18 Office [facility] 1.2.693.527 [id number] [facility] 08:37:16 09:02:40 Visit Steven Chen 350.1.13.10 it y of Surgical 4.2.7.2.686 Archie as Specialti [phone] Nm dical es 198 [facility] 2018-12-08 2018-12-08 Office [facility] 1.2.363.092 [id number] Univers 15:02:42 15:51:02 Visit Steven Chen 350.1.13.10 it y of Surgical 4.2.7.2.686 Archie as Specialti [id number] Nm dical es 198 [facility] 2018-12-05 2018-12-05 [facility] 1.2.840.114 [id number] Univers 09:47:09 23:59:00 Encounter Ector Goodman [place] 350.1.13.10 ity of [place] 4.2.7.2.686 [place] [phone] [facility] [address] 2018-12-05 2018-12-05 Office Christina, [facility] 1.2.847.407 [id number] Univers 07:55:02 09:26:33 Visit Steven Linda [facility] 350.1.13.10 it y of Surgical 4.2.7.2.686 Archie as Specialti [phone] Nm dical 198 [facility] 2018-12-01 2018-12-01 Emergency Jaki Polanco [facility] [id number] Univers 14:24:08 18:38:00 Sydnie [place] [id number] i ty of [place] [id number] [facility] [phone] [facility] [address] 2018-11-18 2018-11-18 Transition Peng Smithliza [id number] Univers 00:00:00 00:00:00 of Care Pricilla Ascencio [id number] it [id number] [phone] [facility] [address] 2018-11-15 2018-11-17 Emergency Farshad Ramirez [id number] Univers 09:29:33 16:00:00 Sundar Brooke [id number] ity of [facility] [id number] [place] [phone] [facility] [address] 2018-10-07 2018-10-07 [facility] [id number] [facility] 11:00:00 11:00:[address] [facility] Medicine Outpati ent Clinics 2018-07-28 2018-07-28 [facility] [id number] [facility] 09:57:00 09:57:[address] [facility] 2018-07-25 2018-07-25 [facility] [id number] [facility] 14:40:00 14:40:00 t Z-good - Decisiv [facility] Results Test Description Test Time Test Comments Results Result Comments Source TROPONIN I 2021-03-26 01:49:11 Test Item Value Reference Range Interpretation Comme nts TROPONIN I (test code = 0.002 ng/mL See_Comment [Au tomated message] The 8029480151) system which ge nerated this result tra nsmitted reference range : <=0.034. The reference r luca was not used to int erpret this result as normal/abnormal . KIM (test code = KIM) Reference (Normal) Range (defined by the 99th percentile reference [...] biotin. Lab Interpretation Normal (test code = 44721-2) [id number] 01:46:10 Test Item Value Reference Range Interpretation Comments NT-proBNP (test code 56 pg/mL See_Comment [Autom ated = 9356944848) message] The system which generated this result transmitted reference range : <=125. The reference range was not used to interpret this result as normal/abnormal . KIM (test code = KIM) Biotin has been reported to cause a negative bias, interpret results relative to patient's use of biotin. Lab Interpretation Normal (test code = 37638-1) [facility] ([id number])2021-03-26 01:37:29 Test Item Value Reference Range Interpretation Comments NA (test code = 134 mmol/L 135-145 L 4111978475) K (test code = 4.6 mmol/L 3.5-5.0 1419994633) CL (test code = 103 mmol/L 98-108 0815365961) CO2 TOTAL (test code = 21 mmol/L 23-31 L 0943549551) AGAP (test code = 2-16 8175611781) BUN (test code = 21 mg/dL 7-23 8646439776) GLUCOSE (test code = 98 mg/dL 70-110 4567453323) CREATININE (test code = 0.89 mg/dL 0.50-1.04 9528586399) TOTAL BILI (test code = 1.0 mg/dL 0.1-1.2 9582946906) CALCIUM (test code = 9.6 mg/dL 8.6-10.6 3417708798) T PROTEIN (test code = 8.0 g/dL 6.3-8.2 7514593199) ALBUMIN (test code = 4.5 g/dL 3.5-5.0 8225849680) ALK PHOS (test code = 818 U/L 34-122 H 4797875064) ALTv (test code = 201 U/L 5-35 H 1742-6) AST(SGOT) (test code = 174 U/L 13-40 H 0237983876) eGFR (test code = mL/min/1.73m2 6905982678) KIM (test code = KIM) Association of [...] tests). Lab Interpretation Abnormal (test code = 02428-7) [facility] 01[facility]:09 Test Item Value Reference Range Interpretation Comments LIPASE (test code = 4239406674) 176 U/L 0-220 Lab Interpretation (test code = Normal 10833-4) [facility] [id number] 01:34:08 Test Item Value Reference Range Interpretation Comments [...] as normal/abnormal . HGB (test code = 10.7 g/dL 11.6-15.0 L 718-7) HCT (test code = 33.5 % 35.7-45.2 L 4544-3) MCV (test code = 91.0 fL 80.6-95.5 787-2) MCH (test code = 29.1 pg 25.9-32.8 785-6) MCHC (test code = 31.9 g/dL 31.6-35.1 786-4) RDW-SD (test code = 43.3 fL 39.0-49.9 06288-4) RDW-CV (test code = 13.0 % 12.0-15.5 788-0) PLT (test code = See_Comment [Automated 777-3) message] The sy stem which generated this result transmitted reference range : 166 - 358 10*3/ ?L. The reference r luca was not used to interpret this result as normal/abnormal . MPV (test code = 10.0 fL 9.5-12.9 95310-6) NRBC/100 WBC (test See_Comment [Automat ed code = 9922342336) message] The system which generated this result transmitted reference range : 0.0 - 10.0 /100 WBCs. The refer ence range was not u sed to interpret th is result as normal/abnormal . NRBC x10^3 (test code <0.01 See_Comment [Auto mated = 3747680387) message] The s ystem which generated this result transmitted reference range : 10*3/?L. The reference range was not used to interpret this result as normal/abnormal . GRAN MAT (NEUT) % 71.1 % (test code = 770-8) IMM GRAN % (test code 0.50 % = 1710908291) LYMPH % (test code = 18.8 % 736-9) MONO % (test code = 7.0 % 5905-5) EOS % (test code = 2.3 % 713-8) BASO % (test code = 0.3 % 706-2) GRAN MAT x10^3(ANC) 4.38 10*3/uL 1.88-7.09 (test code = 3429947861) IMM GRAN x10^3 (test 0.03 10*3/uL 0.00-0.06 code = 8188124288) LYMPH x10^3 (test code 1.16 10*3/uL 1.32-3.29 L = 731-0) MONO x10^3 (test code 0.43 10*3/uL 0.33-0.92 = 742-7) EOS x10^3 (test code = 0.14 10*3/uL 0.03-0.39 711-2) BASO x10^3 (test code <0.03 0.01-0.07 = 704-7) Lab Interpretation Abnormal (test code = 19677-1) [facility] ([id number])2021-03-21 00:26:35 Test Item Value Reference Range Interpretation Comments NA (test code = 135 mmol/L 135-145 3492548693) K (test code = 4.6 mmol/L 3.5-5.0 4740800956) CL (test code = 104 mmol/L 98-108 5956190399) CO2 TOTAL (test code = 24 mmol/L 23-31 6294933595) AGAP (test code = 2-16 8845618399) BUN (test code = 17 mg/dL 7-23 8980298058) GLUCOSE (test code = 88 mg/dL 70-110 4805509126) CREATININE (test code = 0.70 mg/dL 0.50-1.04 8532603409) TOTAL BILI (test code = 1.0 mg/dL 0.1-1.4 6623334186) CALCIUM (test code = 8.8 mg/dL 8.6-10.6 4647115250) T PROTEIN (test code = 7.2 g/dL 6.3-8.2 8018246282) ALBUMIN (test code = 3.9 g/dL 3.5-5.0 1503233167) ALK PHOS (test code = 844 U/L 34-122 H 8301672893) ALTv (test code = 192 U/L 5-35 H 1742-6) AST(SGOT) (test code = 189 U/L 13-40 H 3398621727) eGFR (test code = mL/min/1.73m2 9775732488) KIM (test code = KIM) Association of [...] tests). Lab Interpretation Abnormal (test code = 60687-4) [facility] [id number] 23:26:58 Test Item Value Reference Interpretation Comments Range TROPONIN I (test 0.026 ng/mL See_Comment [Automated code = 1829310826) message] The system which generated this result [...] biotin. Lab Interpretation Normal (test code = 57337-8) [facility] 23:15:37 Test Item Value Reference Range Interpretation Comments LIPASE (test code = 3230517010) 214 U/L 0-220 Lab Interpretation (test code = Normal 65904-8) [facility] [id number] 22:59:33 Test Item Value Reference Range Interpretation Comments WBC (test code = See_Comment [Automated 9090-2) message] The sy stem which generated this [...] 11.6-15.0 L 718-7) HCT (test code = 33.0 % 35.7-45.2 L 4544-3) MCV (test code = 91.7 fL 80.6-95.5 787-2) MCH (test code = 29.4 pg 25.9-32.8 785-6) MCHC (test code = 32.1 g/dL 31.6-35.1 786-4) RDW-SD (test code = 43.4 fL 39.0-49.9 51867-2) RDW-CV (test code = 13.0 % 12.0-15.5 788-0) PLT (test code = See_Comment [Automated 777-3) message] The sy stem which generated this result transmitted reference range : 166 - 358 10*3/ ?L. The reference r luca was not used to interpret this result as normal/abnormal . MPV (test code = 10.2 fL 9.5-12.9 74803-8) NRBC/100 WBC (test See_Comment [Automat ed code = 7655697372) message] The system which generated this result transmitted reference range : 0.0 - 10.0 /100 WBCs. The refer ence range was not u sed to interpret th is result as normal/abnormal . NRBC x10^3 (test code <0.01 See_Comment [Auto mated = 8733285446) message] The s ystem which generated this result transmitted reference range : 10*3/?L. The reference range was not used to interpret this result as normal/abnormal . GRAN MAT (NEUT) % 65.8 % (test code = 770-8) IMM GRAN % (test code 0.20 % = 7937288973) LYMPH % (test code = 22.8 % 736-9) MONO % (test code = 7.7 % 5905-5) EOS % (test code = 2.9 % 713-8) BASO % (test code = 0.6 % 706-2) GRAN MAT x10^3(ANC) 3.43 10*3/uL 1.88-7.09 (test code = 2431694588) IMM GRAN x10^3 (test <0.03 0.00-0.06 code = 1559684763) LYMPH x10^3 (test code 1.19 10*3/uL 1.32-3.29 L = 731-0) MONO x10^3 (test code 0.40 10*3/uL 0.33-0.92 = 742-7) EOS x10^3 (test code = 0.15 10*3/uL 0.03-0.39 711-2) BASO x10^3 (test code 0.03 10*3/uL 0.01-0.07 = 704-7) Lab Interpretation Abnormal (test code = 73960-5) [facility]. METABOLIC PANEL ([id number])2021-02-12 20:12:57 Test Item Value Reference Range Interpretation Comments NA (test code = 137 mmol/L 135-145 2843255422) K (test code = 4.7 mmol/L 3.5-5.0 0568382411) CL (test code = 106 mmol/L 98-108 6074948741) CO2 TOTAL (test code = 23 mmol/L 23-31 2847054432) AGAP (test code = 2-16 9356608678) BUN (test code = 16 mg/dL 7-23 0358232064) GLUCOSE (test code = 116 mg/dL 70-110 H 3872834596) CREATININE (test code = 0.65 mg/dL 0.50-1.04 9196682206) TOTAL BILI (test code = 1.6 mg/dL 0.1-1.1 H 9889182749) CALCIUM (test code = 9.6 mg/dL 8.6-10.6 8145378834) T PROTEIN (test code = 8.3 g/dL 6.3-8.2 H 1114610719) ALBUMIN (test code = 4.5 g/dL 3.5-5.0 5519386980) ALK PHOS (test code = 650 U/L 34-122 H 1881986195) ALTv (test code = 146 U/L 5-35 H 1742-6) AST(SGOT) (test code = 174 U/L 13-40 H 7866546369) eGFR (test code = mL/min/1.73m2 3245687055) KIM (test code = KIM) Association of [...] tests). Lab Interpretation Abnormal (test code = 80707-0) [facility]:12:12 Test Item Value Reference Range Interpretation Comments LIPASE (test code = 0743712698) 86 U/L 0-220 Lab Interpretation (test code = Normal 89529-8) [facility] [id number] 20:02:15 Test Item Value Reference Range Interpretation Comments WBC (test code = See_Comment [Automated 2290-2) message] The sy stem which generated this result transmitted reference range : 4.30 - 11.10 10*3/?L. The reference range was not used to interpret this result as normal/abnormal . RBC (test code = See_Comment L [Automated 549-8) message] The sy stem which generated this [...] RDW-SD (test code = 46.4 fL 39.0-49.9 58773-0) RDW-CV (test code = 13.8 % 12.0-15.5 788-0) PLT (test code = See_Comment [Automated 777-3) message] The sy stem which generated this result transmitted reference range : 166 - 358 10*3/ ?L. The reference r luca was not used to interpret this result as normal/abnormal . MPV (test code = 9.8 fL 9.5-12.9 72303-7) NRBC/100 WBC (test See_Comment [Automat ed code = 9964830535) message] The system which generated this result transmitted reference range : 0.0 - 10.0 /100 WBCs. The refer ence range was not u sed to interpret th is result as normal/abnormal . NRBC x10^3 (test code <0.01 See_Comment [Auto mated = 1979144292) message] The s ystem which generated this result transmitted reference range : 10*3/?L. The reference range was not used to interpret this result as normal/abnormal . GRAN MAT (NEUT) % 69.4 % (test code = 770-8) IMM GRAN % (test code 0.40 % = 3714330874) LYMPH % (test code = 20.4 % 736-9) MONO % (test code = 7.2 % 5905-5) EOS % (test code = 2.0 % 713-8) BASO % (test code = 0.6 % 706-2) GRAN MAT x10^3(ANC) 3.77 10*3/uL 1.88-7.09 (test code = 3705084783) IMM GRAN x10^3 (test <0.03 0.00-0.06 code = 9969067733) LYMPH x10^3 (test code 1.11 10*3/uL 1.32-3.29 L = 731-0) MONO x10^3 (test code 0.39 10*3/uL 0.33-0.92 = 742-7) EOS x10^3 (test code = 0.11 10*3/uL 0.03-0.39 711-2) BASO x10^3 (test code 0.03 10*3/uL 0.01-0.07 = 704-7) Lab Interpretation Abnormal (test code = 85491-3) [facility]. METABOLIC PANEL ([id number])2021-01-18 04:36:17 Test Item Value Reference Range Interpretation Comments NA (test code = 137 mmol/L 135-145 3945608616) K (test code = 4.2 mmol/L 3.5-5.0 0525061310) CL (test code = 103 mmol/L 98-108 9817336897) CO2 TOTAL (test code = 27 mmol/L 23-31 0118999190) AGAP (test code = 2-16 8917070865) BUN (test code = 13 mg/dL 7-23 8955995647) GLUCOSE (test code = 100 mg/dL 70-110 0188199043) CREATININE (test code = 0.73 mg/dL 0.50-1.04 6353617286) TOTAL BILI (test code = 1.4 mg/dL 0.1-1.1 H 3992265812) CALCIUM (test code = 9.1 mg/dL 8.6-10.6 2719339709) T PROTEIN (test code = 7.2 g/dL 6.3-8.2 6262508285) ALBUMIN (test code = 4.0 g/dL 3.5-5.0 7045520261) ALK PHOS (test code = 585 U/L 34-122 H 8073143798) ALTv (test code = 78 U/L 5-35 H 1742-6) AST(SGOT) (test code = 73 U/L 13-40 H 7710537038) eGFR (test code = mL/min/1.73m2 1982240286) KIM (test code = KIM) Association of [...] tests). Lab Interpretation Abnormal (test code = 54263-8) [facility] 04:[facility]:39 Test Item Value Reference Range Interpretation Comments LIPASE (test code = 3352962939) 114 U/L 0-220 Lab Interpretation (test code = Normal 74799-5) [facility] [id number] 03:49:11 Test Item Value Reference Range Interpretation Comments WBC (test code = See_Comment [Automated 4290-2) message] The sy stem which generated this result transmitted reference range : 4.30 - 11.10 10*3/?L. The reference range was not used to interpret this result as normal/abnormal . RBC (test code = See_Comment L [Automated 189-8) message] The sy stem which generated this [...] (test code = 50.6 fL 39.0-49.9 H 96434-5) RDW-CV (test code = 14.8 % 12.0-15.5 788-0) PLT (test code = See_Comment [Automated 777-3) message] The sy stem which generated this result transmitted reference range : 166 - 358 10*3/ ?L. The reference r luca was not used to interpret this result as normal/abnormal . MPV (test code = 10.7 fL 9.5-12.9 06200-4) NRBC/100 WBC (test See_Comment [Automat ed code = 7962494665) message] The system which generated this result transmitted reference range : 0.0 - 10.0 /100 WBCs. The refer ence range was not u sed to interpret th is result as normal/abnormal . NRBC x10^3 (test code <0.01 See_Comment [Auto mated = 2645034073) message] The s ystem which generated this result transmitted reference range : 10*3/?L. The reference range was not used to interpret this result as normal/abnormal . GRAN MAT (NEUT) % 66.1 % (test code = 770-8) IMM GRAN % (test code 0.20 % = 9405341651) LYMPH % (test code = 23.5 % 736-9) MONO % (test code = 8.1 % 5905-5) EOS % (test code = 1.7 % 713-8) BASO % (test code = 0.4 % 706-2) GRAN MAT x10^3(ANC) 3.49 10*3/uL 1.88-7.09 (test code = 4110502108) IMM GRAN x10^3 (test <0.03 0.00-0.06 code = 9437357911) LYMPH x10^3 (test code 1.24 10*3/uL 1.32-3.29 L = 731-0) MONO x10^3 (test code 0.43 10*3/uL 0.33-0.92 = 742-7) EOS x10^3 (test code = 0.09 10*3/uL 0.03-0.39 711-2) BASO x10^3 (test code <0.03 0.01-0.07 = 704-7) Lab Interpretation Abnormal (test code = 09563-7) [facility] (ALB,T.PRO,BILI T,BU/BC,ALT,AST,ALK PHOS)2020-12-30 18:48:24 Test Item Value Reference Range Interpretation Comments TOTAL BILI (test code = 6246298347) 2.4 mg/dL 0.1-1.1 H BILI UNCON (test code = 3236753733) 0.5 mg/dL 0.1-1.1 BILI CONJ (test code = 3569364721) 0.0 mg/dL 0.0-0.3 T PROTEIN (test code = 0108701141) 9.8 g/dL 6.3-8.2 H ALBUMIN (test code = 0755111836) 4.9 g/dL 3.5-5.0 ALK PHOS (test code = 4007541167) 1181 U/L 34-122 H ALTv (test code = 1742-6) 271 U/L 5-35 H AST(SGOT) (test code = 5818227232) 192 U/L 13-40 H Lab Interpretation (test code = Abnormal 71880-6) [facility] (34118[facility] (ALB,T.PRO,BILI T,BU/BC,ALT,AST,ALK PHOS)2020-12-30 18:48:24 Test Item Value Reference Range Interpretation Comments TOTAL BILI (test code = 2279855510) 2.4 mg/dL 0.1-1.1 H BILI UNCON (test code = 5260132184) 0.5 mg/dL 0.1-1.1 BILI CONJ (test code = 6789803677) 0.0 mg/dL 0.0-0.3 T PROTEIN (test code = 4313161258) 9.8 g/dL 6.3-8.2 H ALBUMIN (test code = 5241819180) 4.9 g/dL 3.5-5.0 ALK PHOS (test code = 4442659313) 1181 U/L 34-122 H ALTv (test code = 1742-6) 271 U/L 5-35 H AST(SGOT) (test code = 2090621052) 192 U/L 13-40 H Lab Interpretation (test code = Abnormal 18493-5) [facility] METABOLIC PANEL (NA, K, CL, CO2, GLUCOSE, BUN, CREATININE, CA)2020-12-30 18:48:02 Test Item Value Reference Range Interpretation Comments NA (test code = 138 mmol/L 135-145 0406769458) K (test code = 4.7 mmol/L 3.5-5.0 6150466577) CL (test code = 106 mmol/L 98-108 7136011172) CO2 TOTAL (test code = 20 mmol/L 23-31 L 3760855499) AGAP (test code = 2-16 5567793786) BUN (test code = 19 mg/dL 7-23 1190837198) GLUCOSE (test code = 134 mg/dL 70-110 H 1705857007) CREATININE (test code = 0.62 mg/dL 0.50-1.04 8898577476) CALCIUM (test code = 10.1 mg/dL 8.6-10.6 6049509400) eGFR (test code = mL/min/1.73m2 7020788488) KIM (test code = KIM) Association of [...] tests). Lab Interpretation Abnormal (test code = 30337-6) [facility] 18:48:02 Test Item Value Reference Range Interpretation Comments LIPASE (test code = 4510080031) 292 U/L 0-220 H Lab Interpretation (test code = Abnormal 66198-0) [facility] (NA, K, CL, CO2, GLUCOSE, BUN, CREATININE, CA)2020-12-30 18:48:02 Test Item Value Reference Range Interpretation Comments NA (test code = 138 mmol/L 135-145 9445635077) K (test code = 4.7 mmol/L 3.5-5.0 4336175462) CL (test code = 106 mmol/L 98-108 6462872105) CO2 TOTAL (test code = 20 mmol/L 23-31 L 1066695473) AGAP (test code = 2-16 2599072086) BUN (test code = 19 mg/dL 7-23 5206378096) GLUCOSE (test code = 134 mg/dL 70-110 H 6937882180) CREATININE (test code = 0.62 mg/dL 0.50-1.04 8811169813) CALCIUM (test code = 10.1 mg/dL 8.6-10.6 8325920224) eGFR (test code = mL/min/1.73m2 3644696302) KIM (test code = KIM) Association of [...] tests). Lab Interpretation Abnormal (test code = 60059-1) [facility] 18:48:02 Test Item Value Reference Range Interpretation Comments LIPASE (test code = 4272362050) 292 U/L 0-220 H Lab Interpretation (test code = Abnormal 62903-1) [facility] [id number] 18:39:23 Test Item Value Reference Range Interpretation Comments WBC (test code = See_Comment [Automated 3225-2) message] The sy stem which generated this result transmitted reference range : 4.30 - 11.10 10*3/?L. The reference range was not used to interpret this result as normal/abnormal . RBC (test code = See_Comment [Automated 161-0) message] The sy stem which generated this [...] RDW-SD (test code = 48.4 fL 39.0-49.9 06565-3) RDW-CV (test code = 14.6 % 12.0-15.5 788-0) PLT (test code = See_Comment [Automated 777-3) message] The sy stem which generated this result transmitted reference range : 166 - 358 10*3/ ?L. The reference r luca was not used to interpret this result as normal/abnormal . MPV (test code = 10.1 fL 9.5-12.9 24680-2) NRBC/100 WBC (test See_Comment [Automat ed code = 3884232822) message] The system which generated this result transmitted reference range : 0.0 - 10.0 /100 WBCs. The refer ence range was not u sed to interpret th is result as normal/abnormal . NRBC x10^3 (test code <0.01 See_Comment [Auto mated = 0884023962) message] The s ystem which generated this result transmitted reference range : 10*3/?L. The reference range was not used to interpret this result as normal/abnormal . GRAN MAT (NEUT) % 75.2 % (test code = 770-8) IMM GRAN % (test code 0.60 % = 5287422702) LYMPH % (test code = 17.0 % 736-9) MONO % (test code = 5.8 % 5905-5) EOS % (test code = 0.9 % 713-8) BASO % (test code = 0.5 % 706-2) GRAN MAT x10^3(ANC) 8.11 10*3/uL 1.88-7.09 H (test code = 7443983317) IMM GRAN x10^3 (test 0.06 10*3/uL 0.00-0.06 code = 9766891874) LYMPH x10^3 (test code 1.83 10*3/uL 1.32-3.29 = 731-0) MONO x10^3 (test code 0.62 10*3/uL 0.33-0.92 = 742-7) EOS x10^3 (test code = 0.10 10*3/uL 0.03-0.39 711-2) BASO x10^3 (test code 0.05 10*3/uL 0.01-0.07 = 704-7) Lab Interpretation Abnormal (test code = 69820-2) [facility] WITH [id number] 18:39:23 Test Item Value Reference Range Interpretation Comments WBC (test code = See_Comment [Automated 6490-2) message] The sy stem which generated this result transmitted reference range : 4.30 - 11.10 10*3/?L. The reference range was not used to interpret this result as normal/abnormal . RBC (test code = See_Comment [Automated 9-8) message] The sy stem which generated this [...] RDW-SD (test code = 48.4 fL 39.0-49.9 18462-6) RDW-CV (test code = 14.6 % 12.0-15.5 788-0) PLT (test code = See_Comment [Automated 927-3) message] The sy stem which generated this result transmitted reference range : 166 - 358 10*3/ ?L. The reference r luca was not used to interpret this result as normal/abnormal . MPV (test code = 10.1 fL 9.5-12.9 22565-2) NRBC/100 WBC (test See_Comment [Automat ed code = 4843156704) message] The system which generated this result transmitted reference range : 0.0 - 10.0 /100 WBCs. The refer ence range was not u sed to interpret th is result as normal/abnormal . NRBC x10^3 (test code <0.01 See_Comment [Auto mated = 4880994278) message] The s ystem which generated this result transmitted reference range : 10*3/?L. The reference range was not used to interpret this result as normal/abnormal . GRAN MAT (NEUT) % 75.2 % (test code = 770-8) IMM GRAN % (test code 0.60 % = 6353254843) LYMPH % (test code = 17.0 % 736-9) MONO % (test code = 5.8 % 5905-5) EOS % (test code = 0.9 % 713-8) BASO % (test code = 0.5 % 706-2) GRAN MAT x10^3(ANC) 8.11 10*3/uL 1.88-7.09 H (test code = 3897156256) IMM GRAN x10^3 (test 0.06 10*3/uL 0.00-0.06 code = 0601743456) LYMPH x10^3 (test code 1.83 10*3/uL 1.32-3.29 = 731-0) MONO x10^3 (test code 0.62 10*3/uL 0.33-0.92 = 742-7) EOS x10^3 (test code = 0.10 10*3/uL 0.03-0.39 711-2) BASO x10^3 (test code 0.05 10*3/uL 0.01-0.07 = 704-7) Lab Interpretation Abnormal (test code = 93451-7) General acute hospital PELVIS COMPLETE WITH [id number] 23:13:25Focal echogenicity in the left ovary measuring [...] Otherwise unremarkable pelvic ultrasound.RL: 5611END OF REPORT [facility]East[facility] HospitalLactic Acid Whole [id number] 22:23:55 Test Item Value Reference Range Interpretation Comments LACTIC ACID (test code = 1.49 mmol/L 0.50-2.20 8914145234) Lab Interpretation (test code = Normal 42572-9) [facility] [id number] 22:20:59 1. ?No acute intra-abdominal abnormality. 2. ?Gastric wall thickening is nonspecific but can be seen with gastritis. 3. ?Postsurgical changes of cholecystectomy and appendectomy. Pneumobiliaversus nonradiopaque biliary stents are unchanged dating back to 2016. 4. ?Hepatic steatosis and splenomegaly. The 0.9 cm cystic hypodensity atthe uncinate process is slightly smaller from 03/26/2020. This wasevaluated [facility] on 09/[facility]2020, with resultssuggestive of pseudocyst versusside [...] stentsare unchanged dating back to at least 2016. SPLEEN: The spleen is mildly enlarged and [...] 03/26/2020. This wasevaluated by MR abdomen at [facility] on 09/08/2020, with resultssuggestive of pseudocyst versus side branch IPMN.Preliminary Report Dictated by Resident: Chester Rivera, Dwight Akers MD., have reviewed this study andagree with the abovereport.[facility] [id number] 20:42:19 Test Item Value Reference Range Interpretation Comments APPEARANCE (test code = Clear Clear [id number]) COLOR (test code = Romelia Yellow A [id number]) PH (test code = 4.8-8.0 3470719826) SP GRAVITY (test code = 1.003-1.030 8858688271) GLU U QUAL (test code = Normal Normal 1372915455) BLOOD (test code = Negative Negative 7914229546) KETONES (test code = Negative Negative 0491302084) PROTEIN (test code = 30 mg/dL Negative A 2887-8) UROBILIN (test code = 4.0 mg/dL Normal A 7749307105) BILIRUBIN (test code = 2 mg/dL Negative A 3746687962) NITRITE (test code = Negative Negative 5288636714) [place] (test code = Negative Negative 0667463098) RBC/HPF (test code = See_Comment [Autom ated message] 5714583967) The system [employer] generated this result transmit gulshan reference range : 0 - 3 HPF. The refe rence range was not u sed to interpret th is result as normal/abnormal . WBC/HPF (test code = See_Comment [Autom ated message] 2437221144) The system [employer] generated this result transmit gulshan reference range : 0 - 5 HPF. The refe rence range was not u sed to interpret th is result as normal/abnormal . BACTERIA (test code = Few Negative A 9985084004) MUCOUS (test code = Slight Negative LPF A 4408643969) SQ EPITH (test code = HPF 3962761017) HYAL CAST (test code = See_Comment [Aut omated message] 9553875842) The system [employer] generated this result transmit gulshan reference range : <=2 LPF. The refere nce range was not u sed to interpret th is result as normal/abnormal . Lab Interpretation (test Abnormal code = 97715-1) [facility]. METABOLIC PANEL ([id number])2020-12-05 20:38:13 Test Item Value Reference Range Interpretation Comments NA (test code = 139 mmol/L 135-145 [id number]) K (test code = 3.6 mmol/L 3.5-5.0 1726265370) CL (test code = 106 mmol/L 98-108 0983341752) CO2 TOTAL (test code = 21 mmol/L 23-31 L 2340229281) AGAP (test code = 2-16 4985629423) BUN (test code = 12 mg/dL 7-23 5173144293) GLUCOSE (test code = 91 mg/dL 70-110 0821372840) CREATININE (test code = 0.53 mg/dL 0.50-1.04 6299681276) TOTAL BILI (test code = 3.6 mg/dL 0.1-1.1 H 8194698126) CALCIUM (test code = 9.8 mg/dL 8.6-10.6 0475748291) T PROTEIN (test code = 9.1 g/dL 6.3-8.2 H 5075057016) ALBUMIN (test code = 4.6 g/dL 3.5-5.0 0817627268) ALK PHOS (test code = 1229 U/L 34-122 H 5721844973) ALTv (test code = 311 U/L 5-35 H 1742-6) AST(SGOT) (test code = 280 U/L 13-40 H 8872176761) eGFR (test code = mL/min/1.73m2 3745016302) KIM (test code = KIM) Association of [...] tests). Lab Interpretation Abnormal (test code = 54848-3) [facility]32 Test Item Value Reference Range Interpretation Comments LIPASE (test code = 3583423787) 168 U/L 0-220 Lab Interpretation (test code = Normal 62528-2) [facility] WITH [id number] 20:25:55 Test Item Value Reference Range Interpretation [...] RDW-SD (test code = 49.3 fL 39.0-49.9 36705-5) RDW-CV (test code = 15.0 % 12.0-15.5 788-0) PLT (test code = See_Comment [Automated 777-3) message] The sy stem which generated this result transmitted reference range : 166 - 358 10*3/ ?L. The reference r luca was not used to interpret this result as normal/abnormal . MPV (test code = 10.2 fL 9.5-12.9 53461-9) NRBC/100 WBC (test See_Comment [Automat ed code = 2265190953) message] The system which generated this result transmitted reference range : 0.0 - 10.0 /100 WBCs. The refer ence range was not u sed to interpret th is result as normal/abnormal . NRBC x10^3 (test code <0.01 See_Comment [Auto mated = 7118971030) message] The s ystem which generated this result transmitted reference range : 10*3/?L. The reference range was not used to interpret this result as normal/abnormal . GRAN MAT (NEUT) % 68.6 % (test code = 770-8) IMM GRAN % (test code 0.40 % = 2594830011) LYMPH % (test code = 21.2 % 736-9) MONO % (test code = 7.8 % 5905-5) EOS % (test code = 1.6 % 713-8) BASO % (test code = 0.4 % 706-2) GRAN MAT x10^3(ANC) 3.50 10*3/uL 1.88-7.09 (test code = 0744292006) IMM GRAN x10^3 (test <0.03 0.00-0.06 code = 3280013413) LYMPH x10^3 (test code 1.08 10*3/uL 1.32-3.29 L = 731-0) MONO x10^3 (test code 0.40 10*3/uL 0.33-0.92 = 742-7) EOS x10^3 (test code = 0.08 10*3/uL 0.03-0.39 711-2) BASO x10^3 (test code <0.03 0.01-0.07 = 704-7) Lab Interpretation Abnormal (test code = 92218-4) [facility] (92888)(TOTAL CHOLESTEROL, TRIGLYCERIDES, HDL)2020-10-12 16:46:34 Test Item Value Reference Range Interpretation Comments CHOL (test code = 307 mg/dL 120-200 H 9821349336) HDL (test code = 93 mg/dL >50 0448908884) HDLC RATIO (test code = See_Comment [Au tomated message] 9821518338) The system [employer] generated this result transmit gulshan reference range : <=4.5. The refe rence range was not u sed to interpret th is result as normal/abnormal . TRIG (test code = 131 mg/dL 30-170 6501639026) LDL CHOL (test code = 188 mg/dL See_Comment H [Auto mated message] 16610-7) The system [employer] generated this result transmit gulshan reference range : <=160. The refe rence range was not u sed to interpret th is result as normal/abnormal . VLDL (test code = 26 mg/dL 5-60 9369419700) Lab Interpretation (test Abnormal code = 93542-9) [facility]aMagnesium [id number] 09:02:26 Test Item Value Reference Range Interpretation Comments MAGNESIUM (test code = 5963849100) 1.9 mg/dL 1.7-2.4 Lab Interpretation (test code = Normal 89283-2) [facility]AT[facility] FUNCTION PANEL (05347) (ALB,T.PRO,BILI T,BU/BC,ALT,AST,ALK PHOS)2020-10-12 09:02:26 Test Item Value Reference Range Interpretation Comments TOTAL BILI (test code = 6659760135) 1.0 mg/dL 0.1-1.1 BILI UNCON (test code = 6662377454) 0.5 mg/dL 0.1-1.1 BILI CONJ (test code = 6132489106) 0.0 mg/dL 0.0-0.3 T PROTEIN (test code = 5465415543) 7.8 g/dL 6.3-8.2 ALBUMIN (test code = 9723406397) 4.3 g/dL 3.5-5.0 ALK PHOS (test code = 5879494234) 608 U/L 34-122 H ALTv (test code = 1742-6) 156 U/L 5-35 H AST(SGOT) (test code = 2388234947) 136 U/L 13-40 H Lab Interpretation (test code = Abnormal 84143-6) [facility]aProthrombin Time / [id number] 08:48:50 Test Item Value Reference Range Interpretation Comments PROTIME PATIENT (test See_Comment [Auto mated message] code = 5964-2) The system Monaeo generated this result transmitted ref erence range: 10.1 - 1 2.6 Seconds. The re ference range was not u sed to interpret this result as normal/abnor mal. INR (test code = 6301-6) Nor mal INR <1.1; Warfarin Therap eutic range 2.0 to 3. 0 or 2.5 to 3.5, dep ending upon the indica tions. Lab Interpretation (test Normal code = 04251-2) [facility]aaPTT2021-06-30 08:48:50 Test Item Value Reference Range Interpretation Comments APTT Patient (test code See_Comment H [Au tomated message] = 7573-2) The system [employer] generated this result transmitted ref erence range: 26 - 36 Seconds. The reference range was not used to int erpret this result as normal/abnormal . Lab Interpretation (test Abnormal code = 35861-2) [facility] with Scsdehtvlctm0918-15-11 08:31:22 Test Item Value Reference Range Interpretation Comments WBC (test code = See_Comment [Automated 8190-2) message] The sy stem which generated this [...] RDW-SD (test code = 41.3 fL 39.0-49.9 56802-0) RDW-CV (test code = 12.6 % 12.0-15.5 788-0) PLT (test code = See_Comment [Automated 777-3) message] The sy stem which generated this result transmitted reference range : 166 - 358 10*3/ ?L. The reference r luca was not used to interpret this result as normal/abnormal . MPV (test code = 9.1 fL 9.5-12.9 L 25259-6) NRBC/100 WBC (test See_Comment [Automat ed code = 0506700614) message] The system which generated this result transmitted reference range : 0.0 - 10.0 /100 WBCs. The refer ence range was not u sed to interpret th is result as normal/abnormal . NRBC x10^3 (test code <0.01 See_Comment [Auto mated = 3574117186) message] The s ystem which generated this result transmitted reference range : 10*3/?L. The reference range was not used to interpret this result as normal/abnormal . GRAN MAT (NEUT) % 62.6 % (test code = 770-8) IMM GRAN % (test code 0.40 % = 3355505783) LYMPH % (test code = 26.8 % 736-9) MONO % (test code = 7.7 % 5905-5) EOS % (test code = 2.1 % 713-8) BASO % (test code = 0.4 % 706-2) GRAN MAT x10^3(ANC) 3.32 10*3/uL 1.88-7.09 (test code = 3111752833) IMM GRAN x10^3 (test <0.03 0.00-0.06 code = 9242954803) LYMPH x10^3 (test code 1.42 10*3/uL 1.32-3.29 = 731-0) MONO x10^3 (test code 0.41 10*3/uL 0.33-0.92 = 742-7) EOS x10^3 (test code = 0.11 10*3/uL 0.03-0.39 711-2) BASO x10^3 (test code <0.03 0.01-0.07 = 704-7) Lab Interpretation Abnormal (test code = 82522-3) [facility] METABOLIC PANEL (NA, K, CL, CO2, GLUCOSE, BUN, CREATININE, CA)2020-10-12 04:16:15 Test Item Value Reference Range Interpretation Comments NA (test code = 138 mmol/L 135-145 6714547816) K (test code = 4.1 mmol/L 3.5-5.0 2327085308) CL (test code = 104 mmol/L 98-108 1467995849) CO2 TOTAL (test code 23 mmol/L 23-31 = 8386381577) AGAP (test code = 2-16 3350825248) BUN (test code = 16 mg/dL 7-23 9832202928) GLUCOSE (test code = 83 mg/dL 70-110 3264389950) CREATININE (test code 0.63 mg/dL 0.50-1.04 = 9087360718) CALCIUM (test code = 9.4 mg/dL 8.6-10.6 9479127304) eGFR (test code = mL/min/1.73m2 5466924874) KIM (test code = KIM) Association of [...] or urine or abnormalities in imaging tests). [facility] BranchHEPATIC FUNCTION PAN[facility] (67531) (ALB,T.PRO,BILI T,BU/BC,ALT,AST,ALK PHOS)2020-10-12 04:16:15 Test Item Value Reference Range Interpretation Comments TOTAL BILI (test code = 8084048393) 1.1 mg/dL 0.1-1.1 BILI UNCON (test code = 3849113919) 0.5 mg/dL 0.1-1.1 BILI CONJ (test code = 6993775169) 0.0 mg/dL 0.0-0.3 T PROTEIN (test code = 2623470813) 8.5 g/dL 6.3-8.2 H ALBUMIN (test code = 6442438908) 4.6 g/dL 3.5-5.0 ALK PHOS (test code = 0130156771) 679 U/L 34-122 H ALTv (test code = 1742-6) 168 U/L 5-35 H AST(SGOT) (test code = 6275946068) 143 U/L 13-40 H Lab Interpretation (test code = Abnormal 70747-7) [facility] (ID NOW RAPID TESTING)2020-10-11 16:36:41 Test Item Value Reference Range Interpretation Comments SARS-CoV-2 Rapid ID NOW Not Detected Not Detected (test code = 17610-5) KIM (test code = KIM) ID NOW COVID-19 Assay is an isothermal nucleic acid amplification test intended for the qualitative detection of nucleic acid from SARS-CoV-2 viral RNA in nasopharyngeal (CRYSTAL MOUNTER) specimens. It is used under Emergency Use [...] indicated. Lab Interpretation Normal (test code = 15821-8) [facility]aUS GALL [id number] 15:28:53HISTORY: Rule out biliary duct stenosis. COMPARISON: [...] ductstenosis cannot be adequately evaluated by this study.[facility], Radiant Results Inft User - 10/11/2020 [...] ductstenosis cannot be adequately evaluated by this study.[facility] Troponin [id number] 14:35:05 Test Item Value Reference Interpretation Comments Range TROPONIN I (test 0.004 ng/mL See_Comment [Automated code = 0238768585) message] The system which generated this result [...] biotin. Lab Interpretation Normal (test code = 86688-7) [facility] Panel (ALB, T.PRO, BILI T, BU/BC, ALT, AST, ALK PHOS)2020-10-11 14:24:25 Test Item Value Reference Range Interpretation Comments TOTAL BILI (test code = 9765641783) 0.9 mg/dL 0.1-1.1 BILI UNCON (test code = 9699156188) 0.3 mg/dL 0.1-1.1 BILI CONJ (test code = 5942675791) 0.0 mg/dL 0.0-0.3 T PROTEIN (test code = 2120563850) 9.0 g/dL 6.3-8.2 H ALBUMIN (test code = 3173523834) 4.8 g/dL 3.5-5.0 ALK PHOS (test code = 7579106091) 752 U/L 34-122 H ALTv (test code = 1742-6) 164 U/L 5-35 H AST(SGOT) (test code = 1830855336) 166 U/L 13-40 H Lab Interpretation (test code = Abnormal 33025-9) [facility] (NA, K, CL, CO2, GLUCOSE, BUN, CREATININE, CA)2020-10-11 14:24:05 Test Item Value Reference Range Interpretation Comments NA (test code = 139 mmol/L 135-145 2179289324) K (test code = 4.3 mmol/L 3.5-5.0 4305048112) CL (test code = 106 mmol/L 98-108 9172337381) CO2 TOTAL (test code = 22 mmol/L 23-31 L 5681586197) AGAP (test code = 2-16 0755713638) BUN (test code = 15 mg/dL 7-23 5602402308) GLUCOSE (test code = 106 mg/dL 70-110 6736334243) CREATININE (test code = 0.63 mg/dL 0.50-1.04 1531151463) CALCIUM (test code = 10.0 mg/dL 8.6-10.6 9458021047) eGFR (test code = mL/min/1.73m2 1724162357) KIM (test code = KIM) Association of [...] tests). Lab Interpretation Abnormal (test code = 85204-1) [facility]aLipase [id number] 14:24:05 Test Item Value Reference Range Interpretation Comments LIPASE (test code = 2902447106) 169 U/L 0-220 Lab Interpretation (test code = Normal 86837-1) [facility]aUrinalysis2021-06-29 14:23:55 Test Item Value Reference Range Interpretation Comments APPEARANCE (test code = Hazy Clear A 4400954863) COLOR (test code = Yellow Yellow 2673729122) PH (test code = 4.8-8.0 3273176153) SP GRAVITY (test code = 1.003-1.030 3476038545) GLU U QUAL (test code = Normal Normal 9725276358) BLOOD (test code = Negative Negative 4234078936) KETONES (test code = Negative Negative 1763600277) PROTEIN (test code = Negative Negative 2887-8) UROBILIN (test code = Normal Normal 6649336830) BILIRUBIN (test code = Negative Negative 3857026696) NITRITE (test code = Negative Negative 4800030896) LEUK NICHOLE (test code = Negative Negative 7456905739) RBC/HPF (test code = See_Comment [Autom ated message] 7316734869) The system [employer] generated this result transmitted ref erence range: 0 - 3 HP F. The reference range was not used to int erpret this result as normal/abnormal . WBC/HPF (test code = See_Comment [Autom ated message] 9036248836) The system [employer] generated this result transmitted ref erence range: 0 - 5 HP F. The reference range was not used to int erpret this result as normal/abnormal . BACTERIA (test code = Few Negative A 7243182479) AMORPHOUS (test code = Rare Rare HPF 9899481523) SQ EPITH (test code = HPF 5431091506) HYAL CAST (test code = See_Comment H [Aut omated message] 4086462276) The system [employer] generated this result transmitted ref erence range: <=2 LPF. The reference range was not used to int erpret this result as normal/abnormal . Lab Interpretation (test Abnormal code = 50608-5) [facility] with Jswedmnsstlq7796-10-04 14:14:01 Test Item Value Reference Range Interpretation Comments WBC (test code = See_Comment [Automated message] 6690-2) The system [employer] generated this result transmitted ref erence range: 4.30 - 1 1.10 10*3/?L. The re ference range was not u sed to interpret this result as normal/abnor mal. RBC (test code = See_Comment [Automated message] 789-8) The system [employer] generated this result transmitted ref erence range: [...] RDW-SD (test code 40.1 fL 39.0-49.9 = 92522-9) RDW-CV (test code 12.3 % 12.0-15.5 = 788-0) PLT (test code = See_Comment [Automated message] 777-3) The system [employer] generated this result transmitted ref erence range: 166 - 35 8 10*3/?L. The re ference range was not u sed to interpret this result as normal/abnor mal. MPV (test code = 9.7 fL 9.5-12.9 52260-2) NRBC/100 WBC (test See_Comment [Automat ed message] code = 4657900826) The syste m which generated this result transmitted ref erence range: 0.0 - 10 .0 /100 WBCs. The refer ence range was not u sed to interpret this result as normal/abnor mal. NRBC x10^3 (test <0.01 See_Comment [Automated message] code = 3930595866) The syste m which generated this result transmitted ref erence range: 10*3/?L. The reference range was not used to interpr et this result as normal/abnormal . GRAN MAT (NEUT) % 63.7 % (test code = 770-8) IMM GRAN % (test 0.40 % code = 9899236391) LYMPH % (test code 26.2 % = 736-9) MONO % (test code 7.6 % = 5905-5) EOS % (test code = 1.7 % 713-8) BASO % (test code 0.4 % = 706-2) GRAN MAT 3.45 10*3/uL 1.88-7.09 x10^3(ANC) (test code = 0648578487) IMM GRAN x10^3 <0.03 0.00-0.06 (test code = 4714462968) LYMPH x10^3 (test 1.42 10*3/uL 1.32-3.29 code = 731-0) MONO x10^3 (test 0.41 10*3/uL 0.33-0.92 code = 742-7) EOS x10^3 (test 0.09 10*3/uL 0.03-0.39 code = 711-2) BASO x10^3 (test <0.03 0.01-0.07 code = 704-7) [facility]. METABOLIC PANEL (92917)2020-10-04 23:43:59 Test Item Value Reference Range Interpretation Comments NA (test code = 138 mmol/L 135-145 2034755325) K (test code = 4.1 mmol/L 3.5-5.0 0501250021) CL (test code = 105 mmol/L 98-108 6484821848) CO2 TOTAL (test code = 26 mmol/L 23-31 0797275128) AGAP (test code = 2-16 7424813050) BUN (test code = 12 mg/dL 7-23 1879281315) GLUCOSE (test code = 124 mg/dL 70-110 H 5708465564) CREATININE (test code = 0.51 mg/dL 0.50-1.04 0184054966) TOTAL BILI (test code = 1.0 mg/dL 0.1-1.8 3756938340) CALCIUM (test code = 9.3 mg/dL 8.6-10.6 1075515871) T PROTEIN (test code = 7.9 g/dL 6.3-8.2 7876140418) ALBUMIN (test code = 4.1 g/dL 3.5-5.0 0626822320) ALK PHOS (test code = 619 U/L 34-122 H 6987228688) ALTv (test code = 99 U/L 5-35 H 1742-6) AST(SGOT) (test code = 97 U/L 13-40 H 1463645575) eGFR (test code = mL/min/1.73m2 3635558501) KIM (test code = KIM) Association of [...] tests). Lab Interpretation Abnormal (test code = 05914-8) [facility] 23:43:38 Test Item Value Reference Range Interpretation Comments LIPASE (test code = 8236853809) 182 U/L 0-220 Lab Interpretation (test code = Normal 64979-9) [facility] (ID NOW RAPID TESTING)2020-10-04 23:39:59 Test Item Value Reference Range Interpretation Comments SARS-CoV-2 Rapid ID NOW Not Detected Not Detected (test code = 45080-3) KIM (test code = KIM) ID NOW COVID-19 Assay is an isothermal nucleic acid amplification test intended for the qualitative detection of nucleic acid from SARS-CoV-2 viral RNA in nasopharyngeal (CRYSTAL MOUNTER) specimens. It is used under Emergency Use [...] indicated. Lab Interpretation Normal (test code = 32361-8) [facility]IS[facility] 23:36:26 Test Item Value Reference Range Interpretation Comments APPEARANCE (test code = Clear Clear 5331978958) COLOR (test code = Ormelia Yellow A 5812908876) PH (test code = 4.8-8.0 9582587263) SP GRAVITY (test code = 1.003-1.030 9852422174) GLU U QUAL (test code = Normal Normal 4680661058) BLOOD (test code = Negative Negative 3487874453) KETONES (test code = Negative Negative 3663271008) PROTEIN (test code = Negative Negative 2887-8) UROBILIN (test code = 4.0 mg/dL Normal A 3020999004) BILIRUBIN (test code = Negative Negative 1572461501) NITRITE (test code = Negative Negative 0811815504) LEUK NICHOLE (test code = Negative Negative 9684105821) RBC/HPF (test code = See_Comment [Autom ated message] 1668344763) The system [employer] generated this result transmit gulshan reference range : 0 - 3 HPF. The refe rence range was not u sed to interpret th is result as normal/abnormal . WBC/HPF (test code = <1 See_Comment [Autom ated message] 9682323137) The system [employer] generated this result transmit gulshan reference range : 0 - 5 HPF. The refe rence range was not u sed to interpret th is result as normal/abnormal . BACTERIA (test code = Few Negative A 8459797883) MUCOUS (test code = Slight Negative LPF A 0336884706) SQ EPITH (test code = HPF 8917182343) Lab Interpretation (test Abnormal code = 79431-4) [facility] WITH [id number] 23:29:18 Test Item Value Reference Range Interpretation [...] RDW-SD (test code = 40.5 fL 39.0-49.9 90087-2) RDW-CV (test code = 12.2 % 12.0-15.5 788-0) PLT (test code = See_Comment [Automated 777-3) message] The sy stem which generated this result transmitted reference range : 166 - 358 10*3/ ?L. The reference r luca was not used to interpret this result as normal/abnormal . MPV (test code = 9.8 fL 9.5-12.9 42298-3) NRBC/100 WBC (test See_Comment [Automat ed code = 8284056763) message] The system which generated this result transmitted reference range : 0.0 - 10.0 /100 WBCs. The refer ence range was not u sed to interpret th is result as normal/abnormal . NRBC x10^3 (test code <0.01 See_Comment [Auto mated = 8292219310) message] The s ystem which generated this result transmitted reference range : 10*3/?L. The reference range was not used to interpret this result as normal/abnormal . GRAN MAT (NEUT) % 72.0 % (test code = 770-8) IMM GRAN % (test code 0.20 % = 3366885987) LYMPH % (test code = 19.8 % 736-9) MONO % (test code = 6.4 % 5905-5) EOS % (test code = 1.4 % 713-8) BASO % (test code = 0.2 % 706-2) GRAN MAT x10^3(ANC) 3.06 10*3/uL 1.88-7.09 (test code = 7290417535) IMM GRAN x10^3 (test <0.03 0.00-0.06 code = 6431996736) LYMPH x10^3 (test code 0.84 10*3/uL 1.32-3.29 L = 731-0) MONO x10^3 (test code 0.27 10*3/uL 0.33-0.92 L = 742-7) EOS x10^3 (test code = 0.06 10*3/uL 0.03-0.39 711-2) BASO x10^3 (test code <0.03 0.01-0.07 = 704-7) Lab Interpretation Abnormal (test code = 48395-5) [facility], ABDOMEN, [id number] 13:41:00Liver Protocol with ElastographyUnlisted Reason for Exam - Click Yes and Enter Reason Below->YesUnlisted Reason for Exam->[facility] of liver [facility] Richey : 1960 Sex: FFINAL REPORT TECHNIQUE: MRI [...] meta-analysis by Chris, MRI Clin N Am 2013Hepatic Fat Fraction Thresholds based on Abdom Radiol 2020;45(3):661-671. Signed: Parul Saeed Verified Date/Time: 09/08/2020 13:41:30 Reading Location: [facility] C013X Ortho Consult Reading Room PROTHROMBIN TIME/[id number] 04:34:00 Test Item Value Reference Range Interpretation Comments PROTIME (BEAKER) 11.7 seconds 11.9-14.2 L (test code = 759) INR (BEAKER) (test 0.88 See_Comment [Automat ed message] code = 370) The system [employer] generated this result transmitted ref erence range: <=5.90. The reference range was not used to int erpret this result as normal/abnormal . RECOMMENDED COUMADIN/WARFARIN INR THERAPY RANGESSTANDARD DOSE: 2.0 - 3.0 Includes: PROPHYLAXIS forvenous thrombosis, systemic embolization; TREATMENT for venous thrombosis and/or pulmonary embolus.HIGH RISK: Target INR is 2.5-3.5 for patients with mechanical heart valves.BASIC METABOLIC [id number] 04:51:00 Test Item Value Reference Range Interpretation [...] S NOT APPLICABLE FOR DIALYSIS PATIEN TS. Viscose Cellar Charge Hand ID - ALAINA WHEPATIC FUNCTION [id number] 04:51:00 Test Item Value Reference Range Interpretation [...] code = 132 U/L 6-55 H 347) Viscose Cellar Charge Hand ID - ALAINA [id number] 04:51:00 Test Item Value Reference Range Interpretation Comments LIPASE (BEAKER) (test code = 749) 115 U/L 8-78 H Viscose Cellar Charge Hand ID Ryan ALAINA WPROTHROMBIN TIME/[id number] 04:25:00 Test Item Value Reference Range Interpretation Comments PROTIME (BEAKER) 12.3 seconds 11.9-14.2 (test code = 759) INR (BEAKER) (test 0.94 See_Comment [Automat ed message] code = 370) The system [employer] generated this result transmitted ref erence range: <=5.90. The reference range was not used to int erpret this result as normal/abnormal . RECOMMENDED COUMADIN/WARFARIN INR THERAPY RANGESSTANDARD DOSE: 2.0 - 3.0 Includes: PROPHYLAXIS forvenous thrombosis, systemic embolization; TREATMENT for venous thrombosis and/or pulmonary embolus.HIGH RISK: Target INR is 2.5-3.5 for patients with mechanical heart valves.FL, [id number] 08:00:00INTRA OP IMAGIN Reason for exam:->ercp [facility] : 1960 Sex: FFluoroscopic unit utilized for a procedure performed in the OR. No interpretation was requested. Refer to the operative report for findings. Refer to PACS for patient radiation dose information.SARS-COV2/RT-PCR ([facility])2020-09-06 06:35:00 Test Item Value Reference Range Interpretation Comments SARS-COV2/RT-PCR (test Negative Not Detected, Negative, code = 3950247) See external report for linked test SARS-COV-2 PERFORMING LAB [facility] (test code = 8422462) Negative result for this test determines that [...] the Simms SARS-CoV-2 assay.Fact Sheet for Healthcare Providers:https://www.Henable.simms/bertha/ DX_CIZU-OcN-1_WIG_Eezs_Enspg_83-019252.pdfFact Sheet for Healthcare Patients:https://www.Henable.Witsbits narayan/bertha/SH_GAPU-GkM-7_Zgfehyc_Mgkw_Vekyt_EB_36-152409F6.pdfPerforming Laboratory:[place] [address] [place] [address] PROTHROMBIN TIME/[id number] 04:41:00 Test Item Value Reference Range Interpretation Comments PROTIME (BEAKER) 12.4 seconds 11.9-14.2 (test code = 759) INR (BEAKER) (test 0.95 See_Comment [Automat ed message] code = 370) The system [employer] generated this result transmitted ref erence range: <=5.90. The reference range was not used to int erpret this result as normal/abnormal . RECOMMENDED COUMADIN/WARFARIN INR THERAPY RANGESSTANDARD DOSE: 2.0 - 3.0 Includes: PROPHYLAXIS forvenous thrombosis, systemic embolization; TREATMENT for venous thrombosis and/or pulmonary embolus.HIGH RISK: Target INR is 2.5-3.5 for patients with mechanical heart valves.[id number] 14:40:00 Test Item Value Reference Range Interpretation Comments MAGNESIUM (BEAKER) 1.9 mg/dL 1.6-2.6 Specimen slightly (test code = 627) hemolyzed Viscose Cellar Charge Hand ID Ryan NEGRON FBASIC METABOLIC [id number] 14:40:00 Test Item Value Reference Range Interpretation [...] S NOT APPLICABLE FOR DIALYSIS PATIEN TS. Viscose Cellar Charge Hand ID Ryan NEGRON FHEPATIC FUNCTION [id number] 14:40:00 Test Item Value Reference Range Interpretation [...] Specimen slightly (test code = 347) hemolyzed Viscose Cellar Charge Hand ID Ryan NEGRON [id number] 14:40:00 Test Item Value Reference Range Interpretation Comments LIPASE (BEAKER) (test code = 749) 446 U/L 8-78 H Viscose Cellar Charge Hand ID Ryan NEGRON FCBC W/PLT COUNT & AUTO [id number] 14:14:00 Test Item Value Reference Range Interpretation [...] PERCENT (BEAKER) (test code = 2801) [place], [id number] 08:35:00Reason for exam:->abnormal imaging [facility] : 1960 Sex: FFluoroscopic unit utilized for a procedure performed in the OR. No interpretation was requested. Refer to the operative report for findings. Refer to PACS for patient radiation dose information.[id number] 06:42:00 Test Item Value Reference Range Interpretation Comments MAGNESIUM (BEAKER) (test code = 1.8 mg/dL 1.6-2.6 627) Viscose Cellar Charge Hand ID - [id number] 06:42:00 Test Item Value Reference Range Interpretation Comments PHOSPHORUS (BEAKER) (test code = 3.4 mg/dL 2.3-4.7 604) Viscose Cellar Charge Hand ID - EDASIHEPATIC FUNCTION [id number] 06:42:00 Test Item Value Reference Range Interpretation [...] code = 89 U/L 6-55 H 347) Viscose Cellar Charge Hand ID - EDASIBASIC METABOLIC [id number] 06:42:00 Test Item Value Reference Range Interpretation [...] S NOT APPLICABLE FOR DIALYSIS PATIEN TS. Viscose Cellar Charge Hand ID - EDASICBC W/PLT COUNT & AUTO [id number] 05:27:00 Test Item Value Reference Range Interpretation [...] PERCENT (BEAKER) (test code = 2801) SARS-COV2/RT-PCR ([facility])2020-08-26 12:43:00 Test Item Value Reference Range Interpretation Comments SARS-COV2/RT-PCR (test Negative Not Detected, Negative, code = 5085018) See external report for linked test SARS-COV-2 [facility] ([facility] code = 3013533) Negative result for this test determines that [...] 564(g) of the Act.Fact Sheet for Healthcare Providers:https://www.goDog Fetch.[employer]/sites/default/files/product/documents/Fact_Shee m_ZY_Jqygpaaml_Kbox_GRTN-NoU-7.pdfFact Sheet for Healthcare Patients:https://www.[employer]/sites/default/files/product/ documents/Sedg_Acmvh_Tnibfqaw_Rsci_ASCX-ZsR-2.pdfPerforming Laboratory:[facility], [place] [address]UPAJX METABOLIC PANEL 2020-08-26 06:19:00 Test Item Value [...] S NOT APPLICABLE FOR DIALYSIS PATIEN TS. Viscose Cellar Charge Hand ID - PISURJIT [id number] 06:19:00 Test Item Value Reference Range Interpretation Comments MAGNESIUM (BEAKER) (test code = 1.8 mg/dL 1.6-2.6 627) Viscose Cellar Charge Hand ID - DONNA LHEPATIC FUNCTION [id number] 06:19:00 Test Item Value Reference Range Interpretation [...] code = 82 U/L 6-55 H 347) Viscose Cellar Charge Hand ID - DONNA LCBC W/PLT COUNT & AUTO [id number] 05:37:00 Test Item Value Reference Range Interpretation [...] images do not require a Radiology diagnostic report.[facility] (NON-REPORTABLE[facility]2020-07-18 13:25:02These images do not require a Radiology diagnostic report.[facility] GLUCOSE (AUTOMATED) 2020-07-18 12:07:46 Test Item Value Reference Range Interpretation Comments POCT GLU (test code = 6393061986) 98 mg/dL 70-110 Lab Interpretation (test code = Normal 12678-8) [facility] GLUCOSE (AUTOMATED)2020-07-18 12:07:46 Test Item Value Reference Range Interpretation Comments POCT GLU (test code = 1105647796) 98 mg/dL 70-110 Lab Interpretation (test code = Normal 08735-9) [facility] ABDOMEN PELVIS W [id number] 01:39:22 1. ?No acute obstruction or inflammation [...] There is abundant stoolthroughout the colon.RL: [facility] [facility] [id number] 00:55:45 Test Item Value Reference Range Interpretation Comments TROPONIN I (test 0.002 ng/mL See_Comment [Automated code = 2489098493) message] The system which generated this result [...] ? Lab Interpretation Normal (test code = 08771-8) [facility] (ID NOW RAPID TESTING)2020-07-08 00:47:04 Test Item Value Reference Range Interpretation Comments SARS-CoV-2 Rapid ID NOW Not Detected Not Detected (test code = 71238-0) KIM (test code = KIM) ID NOW COVID-19 Assay is an isothermal nucleic acid amplification test intended for the qualitative detection of nucleic acid from SARS-CoV-2 viral RNA in nasopharyngeal (CRYSTAL MOUNTER) specimens. It is used under Emergency Use [...] indicated. Lab Interpretation Normal (test code = 95254-9) [facility]2021-03-26 00:45:06 Test Item Value Reference Range Interpretation Comments MAGNESIUM (test code = 1561515430) 2.0 mg/dL 1.7-2.4 Lab Interpretation (test code = Normal 25235-8) [facility]aCOMP. METABOLIC PANEL (28962)2020-07-08 00:44:41 Test Item Value Reference Range Interpretation Comments NA (test code = 139 mmol/L 135-145 6098594412) K (test code = 4.4 mmol/L 3.5-5.0 0791441908) CL (test code = 108 mmol/L 98-108 7889399830) CO2 TOTAL (test code = 23 mmol/L 23-31 8769690565) AGAP (test code = 2-16 1270519435) BUN (test code = 22 mg/dL 7-23 3198231309) GLUCOSE (test code = 107 mg/dL 70-110 4927222716) CREATININE (test code = 0.62 mg/dL 0.50-1.04 3519708180) TOTAL BILI (test code = 0.9 mg/dL 0.1-1.9 6373062991) CALCIUM (test code = 10.0 mg/dL 8.6-10.6 8917184410) T PROTEIN (test code = 8.3 g/dL 6.3-8.2 H 5422796564) ALBUMIN (test code = 4.8 g/dL 3.5-5.0 2963893560) ALK PHOS (test code = 1085 U/L 34-122 H 3090847951) ALTv (test code = 383 U/L 5-35 H 1742-6) AST(SGOT) (test code = 217 U/L 13-40 H 8770228305) eGFR Calculation mL/min/1.73m2 (Non-) (test code = 1397218621) eGFR Calculation mL/min/1.73m2 () (test code = 4330906294) KIM (test code = KIM) Association of [...] tests). Lab Interpretation Abnormal (test code = 16560-5) [facility]2021-03-26 00:44:41 Test Item Value Reference Range Interpretation Comments LIPASE (test code = 3864068130) 131 U/L 0-220 Lab Interpretation (test code = Normal 28112-0) [facility]INALYSIS2021-03-26 00:38:06 Test Item Value Reference Range Interpretation Comments APPEARANCE (test code = Clear Clear 1192682480) COLOR (test code = Yellow Yellow 0450347689) PH (test code = 4.8-8.0 4975617946) SP GRAVITY (test code = 1.003-1.030 5125312478) GLU U QUAL (test code = Normal Normal 7416758666) BLOOD (test code = Negative Negative 2721806089) KETONES (test code = Negative Negative 8499375541) PROTEIN (test code = Negative Negative 2887-8) UROBILIN (test code = 4.0 mg/dL Normal A 3596312689) BILIRUBIN (test code = Negative Negative 3223013731) NITRITE (test code = Negative Negative 0973445101) LEUK NICHOLE (test code = Negative Negative 9719222638) RBC/HPF (test code = <1 See_Comment [Autom ated message] 1136474552) The system [employer] generated this result transmit gulshan reference range : 0 - 3 HPF. The refe rence range was not u sed to interpret th is result as normal/abnormal . WBC/HPF (test code = See_Comment [Autom ated message] 5587332234) The system [employer] generated this result transmit gulshan reference range : 0 - 5 HPF. The refe rence range was not u sed to interpret th is result as normal/abnormal . BACTERIA (test code = Few Negative A 6932925156) MUCOUS (test code = Slight Negative LPF A 4647896166) SQ EPITH (test code = HPF 4550999141) Lab Interpretation (test Abnormal code = 72970-0) [facility] WITH [id number] 00:32:00 Test Item Value Reference Range Interpretation Comments WBC (test code = See_Comment [Automated 1240-2) message] The sy stem which generated this [...] RDW-SD (test code = 48.1 fL 39.0-49.9 65593-0) RDW-CV (test code = 14.5 % 12.0-15.5 788-0) PLT (test code = See_Comment [Automated 777-3) message] The sy stem which generated this result transmitted reference range : 166 - 358 10*3/ ?L. The reference r luca was not used to interpret this result as normal/abnormal . MPV (test code = 9.5 fL 9.5-12.9 24229-9) NRBC/100 WBC (test See_Comment [Automat ed code = 2235209656) message] The system which generated this result transmitted reference range : 0.0 - 10.0 /100 WBCs. The refer ence range was not u sed to interpret th is result as normal/abnormal . NRBC x10^3 (test code <0.01 See_Comment [Auto mated = 2004642464) message] The s ystem which generated this result transmitted reference range : 10*3/?L. The reference range was not used to interpret this result as normal/abnormal . GRAN MAT (NEUT) % 78.2 % (test code = 770-8) IMM GRAN % (test code 0.60 % = 1512410112) LYMPH % (test code = 11.9 % 736-9) MONO % (test code = 8.3 % 5905-5) EOS % (test code = 0.5 % 713-8) BASO % (test code = 0.5 % 706-2) GRAN MAT x10^3(ANC) 7.55 10*3/uL 1.88-7.09 H (test code = 7005584160) IMM GRAN x10^3 (test 0.06 10*3/uL 0.00-0.06 code = 1582416391) LYMPH x10^3 (test code 1.15 10*3/uL 1.32-3.29 L = 731-0) MONO x10^3 (test code 0.80 10*3/uL 0.33-0.92 = 742-7) EOS x10^3 (test code = 0.05 10*3/uL 0.03-0.39 711-2) BASO x10^3 (test code 0.05 10*3/uL 0.01-0.07 = 704-7) Lab Interpretation Abnormal (test code = 49668-5) [facility] TIME OR (NON-REPORTABLE)2020-07-04 13:40:03 These images do not require a Radiology diagnostic report.[facility] TIME OR (NON-REPORTABLE)2020-06-20 14:58:12These images do not require a Radiology diagnostic report.[facility] Metabolic Panel (NA, K, CL, CO2, GLUCOSE, BUN, CREATININE, CA)2020-05-06 23:29:00 Test Item Value Reference Range Interpretation Comments NA (test code = 138 mmol/L 135-145 6868350039) K (test code = 4.4 mmol/L 3.5-5 0882915265) CL (test code = 108 mmol/L 98-108 5612086338) CO2 TOTAL (test code = 20 mmol/L 23-31 L 1733289866) AGAP (test code = 2-16 5558016961) BUN (test code = 18 mg/dL 7-23 8430121499) GLUCOSE (test code = 90 mg/dL 70-110 0164254211) CREATININE (test code = 0.68 mg/dL 0.5-1.04 9245848907) CALCIUM (test code = 9.1 mg/dL 8.6-10.6 3881512663) eGFR Calculation mL/min/1.73m2 (Non-) (test code = 5424931839) eGFR Calculation mL/min/1.73m2 () (test code = 9460058487) KIM (test code = KIM) Association of [...] tests). Lab Interpretation Abnormal (test code = 62260-1) [facility] (ALB, T.PRO, BILI T, BU/BC, ALT, AST, ALK PHOS)2020-05-06 23:28:00 Test Item Value Reference Range Interpretation Comments TOTAL BILI (test code = 0798315454) 1.1 mg/dL 0.1-1.1 BILI UNCON (test code = 8442144139) 0.4 mg/dL 0.1-1.1 BILI CONJ (test code = 0891376282) 0.0 mg/dL 0-0.3 T PROTEIN (test code = 5396283251) 7.9 g/dL 6.3-8.2 ALBUMIN (test code = 4950034385) 4.4 g/dL 3.5-5 ALK PHOS (test code = 0924717228) 984 U/L 34-122 H ALTv (test code = 1742-6) 218 U/L 5-35 H AST(SGOT) (test code = 5097819473) 133 U/L 13-40 H Lab Interpretation (test code = Abnormal 04890-9) [facility]aTroponin [id number] 22:19:00 Test Item Value Reference Range Interpretation Comments TROPONIN I (test 0.021 ng/mL See_Comment [Automated code = 6631325770) message] The system which generated this result [...] ? Lab Interpretation Normal (test code = 74998-0) [facility] (ID NOW RAPID TESTING)2020-05-06 22:13:00 Test Item Value Reference Range Interpretation Comments SARS-CoV-2 Rapid ID NOW Not Detected Not Detected (test code = 02454-8) KIM (test code = KIM) ID NOW COVID-19 Assay is an isothermal nucleic acid amplification test intended for the qualitative detection of nucleic acid from SARS-CoV-2 viral RNA in nasopharyngeal (CRYSTAL MOUNTER) specimens. It is used under Emergency Use [...] indicated. Lab Interpretation Normal (test code = 51905-1) [facility]inalysis2021-01-22 22:09:00 Test Item Value Reference Range Interpretation Comments APPEARANCE (test code = Clear Clear 1072461234) COLOR (test code = Yellow Yellow 1621047187) PH (test code = 4.8-8.0 3836290001) SP GRAVITY (test code = 1.003-1.030 3274316431) GLU U QUAL (test code = Normal Normal 6481662858) BLOOD (test code = Negative Negative INTERFERE NCE FROM 1747493146) ASCORBIC ACID M AY CAUSE FALSE NEG ATIVE RESULT KETONES (test code = Negative Negative 7971825582) PROTEIN (test code = Negative Negative 2887-8) UROBILIN (test code = 2.0 mg/dL Normal A 3540401724) BILIRUBIN (test code = Negative Negative 7178019750) NITRITE (test code = Negative Negative 9286333807) LEUK NICHOLE (test code = Negative Negative 3514094490) RBC/HPF (test code = See_Comment [Autom ated message] 4882201350) The system [employer] generated this result transmitted ref erence range: 0 - 3 HP F. The reference range was not used to int erpret this result as normal/abnormal . WBC/HPF (test code = See_Comment [Autom ated message] 0983971853) The system [employer] generated this result transmitted ref erence range: 0 - 5 HP F. The reference range was not used to int erpret this result as normal/abnormal . BACTERIA (test code = Few Negative A 0813823596) SQ EPITH (test code = HPF 7660743824) HYAL CAST (test code = See_Comment [Aut omated message] 9610907410) The system [employer] generated this result transmitted ref erence range: <=2 LPF. The reference range was not used to int erpret this result as normal/abnormal . Lab Interpretation Abnormal (test code = 90632-0) [facility]ase [id number] 22:08:00 Test Item Value Reference Range Interpretation Comments LIPASE (test code = 1533636088) 114 U/L 0-220 Lab Interpretation (test code = Normal 62773-4) [facility] with [id number] 22:02:00 Test Item Value Reference Range Interpretation Comments WBC (test code = See_Comment [Automated 2490-2) message] The sy stem which generated this result transmitted reference range : 4.30 - 11.10 10*3/?L. The reference range was not used to interpret this result as normal/abnormal . RBC (test code = See_Comment [Automated 399-8) message] The sy stem which generated this [...] RDW-SD (test code = 41.0 fL 39-49.9 42533-5) RDW-CV (test code = 12.4 % 12-15.5 788-0) PLT (test code = See_Comment [Automated 777-3) message] The sy stem which generated this result transmitted reference range : 166 - 358 10*3/ ?L. The reference r luca was not used to interpret this result as normal/abnormal . MPV (test code = 10.5 fL 9.5-12.9 53944-9) NRBC/100 WBC (test See_Comment [Automat ed code = 8792143908) message] The system which generated this result transmitted reference range : 0.0 - 10.0 /100 WBCs. The refer ence range was not u sed to interpret th is result as normal/abnormal . NRBC x10^3 (test code <0.01 See_Comment [Auto mated = 9453761919) message] The s ystem which generated this result transmitted reference range : 10*3/?L. The reference range was not used to interpret this result as normal/abnormal . GRAN MAT (NEUT) % 71.8 % (test code = 770-8) IMM GRAN % (test code 0.10 % = 5280546074) LYMPH % (test code = 19.0 % 736-9) MONO % (test code = 6.2 % 5905-5) EOS % (test code = 2.2 % 713-8) BASO % (test code = 0.7 % 706-2) GRAN MAT x10^3(ANC) 4.83 10*3/uL 1.88-7.09 (test code = 9168427966) IMM GRAN x10^3 (test <0.03 0-0.06 code = 1335675216) LYMPH x10^3 (test code 1.28 10*3/uL 1.32-3.29 L = 731-0) MONO x10^3 (test code 0.42 10*3/uL 0.33-0.92 = 742-7) EOS x10^3 (test code = 0.15 10*3/uL 0.03-0.39 711-2) BASO x10^3 (test code 0.05 10*3/uL 0.01-0.07 = 704-7) Lab Interpretation Abnormal (test code = 10259-8) [facility] 1 [id number] 21:48:28Findings and Impression: ?Subcentimeter calcified granuloma projecting [...] is normal to mildly enlarged. No acuteosseous abnormalities.[facility]inalysis2020-12-12 05:27:00 Test Item Value Reference Range Interpretation Comments APPEARANCE (test code Slightly Cloudy Clear A = 5432119182) COLOR (test code = Yellow Yellow 2086253592) PH (test code = 4.8-8.0 3789853376) SP GRAVITY (test code >=1.030 1.003-1.030 = 6195513566) GLU U QUAL (test code Negative Negative = 3812148067) BLOOD (test code = Trace Negative A 2222008354) KETONES (test code = Negative Negative 9285509634) PROTEIN (test code = Negative Negative 2887-8) UROBILIN (test code = 1.0 mg/dL See_Comment [Auto mated 7241447752) message] The system which generated this result transmit gulshan reference range : 0-1.0 mg/dL. Th e reference range was not used to interpret this result as normal/abnormal . BILIRUBIN (test code Small Negative A = 4793698416) NITRITE (test code = Negative Negative 7892287640) LEUK NICHOLE (test code Trace Negative A = 4605744834) RBC/HPF (test code = See_Comment [Autom ated 6219168169) message] The system which generated this result transmit gulshan reference range : 0 - 3 HPF. The reference range was not used to interpret this result as normal/abnormal . WBC/HPF (test code = See_Comment [Autom ated 4515676881) message] The system which generated this result transmit gulshan reference range : 0 - 5 HPF. The reference range was not used to interpret this result as normal/abnormal . BACTERIA (test code = Few Negative A 2285439361) AMORPHOUS (test code Few Rare HPF A = 5194423053) SQ EPITH (test code = HPF 8465065713) Lab Interpretation Abnormal (test code = 64369-4) [facility] ([facility] NOW RAPID TESTING)2020-03-26 04:39:00 Test Item Value Reference Range Interpretation Comments SARS-CoV-2 Rapid ID NOW Not Detected Not Detected (test code = 31236-7) KIM (test code = KIM) ID NOW COVID-19 Assay is an isothermal nucleic acid amplification test intended for the qualitative detection of nucleic acid from SARS-CoV-2 viral RNA in nasopharyngeal (CRYSTAL MOUNTER) specimens. It is used under Emergency Use [...] indicated. Lab Interpretation Normal (test code = 46328-0) [facility] Metabolic [id number] 04:12:00 Test Item Value Reference Range Interpretation Comments NA (test code = 139 mmol/L 135-145 1081508185) K (test code = 4.5 mmol/L 3.5-5 8299321419) CL (test code = 108 mmol/L 98-108 7913469307) CO2 TOTAL (test code = 22 mmol/L 23-31 L 6103993447) AGAP (test code = 2-16 9618694761) BUN (test code = 17 mg/dL 7-23 9485117410) GLUCOSE (test code = 102 mg/dL 70-110 6873730030) CREATININE (test code = 0.96 mg/dL 0.5-1.04 0408151821) TOTAL BILI (test code = 0.7 mg/dL 0.1-1.2 8788569336) CALCIUM (test code = 9.3 mg/dL 8.6-10.6 8381412781) T PROTEIN (test code = 7.3 g/dL 6.3-8.2 9556339478) ALBUMIN (test code = 4.1 g/dL 3.5-5 6763199383) ALK PHOS (test code = 675 U/L 34-122 H 9936998385) ALTv (test code = 115 U/L 5-35 H 1742-6) AST(SGOT) (test code = 100 U/L 13-40 H 6732030546) eGFR Calculation mL/min/1.73m2 (Non-) (test code = 6867087473) eGFR Calculation mL/min/1.73m2 () (test code = 0477280422) KIM (test code = KIM) Association of [...] tests). Lab Interpretation Abnormal (test code = 58238-2) [facility], [id number] 04:11:00 Test Item Value Reference Range Interpretation Comments LIPASE (test code = 8351951421) 171 U/L 0-220 Lab Interpretation (test code = Normal 41723-8) [facility] with Umvlggpdkggy5600-13-53 03:56:00 Test Item Value Reference Range Interpretation [...] RDW-SD (test code = 47.5 fL 39-49.9 80801-8) RDW-CV (test code = 13.3 % 12-15.5 788-0) PLT (test code = See_Comment [Automated 777-3) message] The sy stem which generated this result transmitted reference range : 166 - 358 10*3/ ?L. The reference r luca was not used to interpret this result as normal/abnormal . MPV (test code = 9.4 fL 9.5-12.9 L 71295-4) NRBC/100 WBC (test See_Comment [Automat ed code = 0350170877) message] The system which generated this result transmitted reference range : 0.0 - 10.0 /100 WBCs. The refer ence range was not u sed to interpret th is result as normal/abnormal . NRBC x10^3 (test code <0.01 See_Comment [Auto mated = 0686356179) message] The s ystem which generated this result transmitted reference range : 10*3/?L. The reference range was not used to interpret this result as normal/abnormal . GRAN MAT (NEUT) % 67.1 % (test code = 770-8) IMM GRAN % (test code 0.70 % = 6317289936) LYMPH % (test code = 22.2 % 736-9) MONO % (test code = 6.4 % 5905-5) EOS % (test code = 2.9 % 713-8) BASO % (test code = 0.7 % 706-2) GRAN MAT x10^3(ANC) 3.69 10*3/uL 1.88-7.09 (test code = 9069111513) IMM GRAN x10^3 (test 0.04 10*3/uL 0-0.06 code = 1760732335) LYMPH x10^3 (test code 1.22 10*3/uL 1.32-3.29 L = 731-0) MONO x10^3 (test code 0.35 10*3/uL 0.33-0.92 = 742-7) EOS x10^3 (test code = 0.16 10*3/uL 0.03-0.39 711-2) BASO x10^3 (test code 0.04 10*3/uL 0.01-0.07 = 704-7) Lab Interpretation Abnormal (test code = 86663-5) [facility] BRAIN WO [id number] 17:24:06 Impression: 1. ?Normal MRI brain. 2. [...] MRI brain.2. Mastoid effusions.3. Right petrous apex effusion.[facility] CULTURE [id number] 21:10:00 Test Item Value Reference Range Interpretation Comments Blood Culture-Aerobic Culture positive. No growth AA P revious (test code = 67145-2) See Blood prelim inary Culture Workup verified resu lt for additional was Culture I n information. Progress on 02/02/2020 at 1901 CDT Blood No organisms No growth Previous Culture-Anaerobic isolated preliminar y (test code = 10563-5) verifi ed result was Culture In Progress on 02/03/2020 at 1314 CDT Lab Interpretation Abnormal (test code = 15016-0) [facility] CULTURE [id number] 21:01:00 Test Item Value Reference Range Interpretation Comments Blood Culture-Aerobic No organisms No growth Previo us (test code = 03507-6) isolated prelim inary verified result was Culture [...] Culture-Anaerobic isolated preliminar y (test code = 14202-0) verifi ed result was Culture In Progress on 02/02/2020 at 1901 CDTPreviou s preliminary verified result was No growth a t 24 hours on 02/03/2020 at 1601 CDTPrevi s preliminary verified result was No growth a t 48 hours on 02/04/2020 at 1601 CDTPrevi s preliminary verified result was No growth a t 72 hours on 02/05/2020 at 1601 CDT Lab Interpretation Normal (test code = 04030-7) [facility] METABOLIC PANEL (NA, K, CL, CO2, GLUCOSE, BUN, CREATININE, CA)2020-02-07 09:09:00 Test Item Value Reference Range Interpretation Comments NA (test code = 136 mmol/L 135-145 0850413749) K (test code = 4.3 mmol/L 3.5-5 Slight hemoly sis 8673173810) CL (test code = 104 mmol/L 98-108 4117303652) CO2 TOTAL (test 26 mmol/L 23-31 code = 3802970631) AGAP (test code = 2-16 3923694045) BUN (test code = 12 mg/dL 7-23 Slight hemo lysis 7922505868) GLUCOSE (test code 98 mg/dL 70-110 = 5347824872) CREATININE (test 0.50 mg/dL 0.5-1.04 code = 8539836809) CALCIUM (test code 8.9 mg/dL 8.6-10.6 = 4930601773) eGFR Calculation mL/min/1.73m2 (Non-) (test code = 1342371820) eGFR Calculation mL/min/1.73m2 () (test code = 7628489671) KIM (test code = Association of KIM) [...] or urine or abnormalities in imaging tests). [facility] WITH [id number] 08:58:00 Test Item Value Reference Range Interpretation Comments WBC (test code = See_Comment [Automated 1590-2) message] The sy stem which generated this result transmitted reference range : 4.30 - 11.10 10*3/?L. The reference range was not used to interpret this result as normal/abnormal . RBC (test code = See_Comment L [Automated 999-8) message] The sy stem which generated this [...] RDW-SD (test code = 48.5 fL 39-49.9 83615-3) RDW-CV (test code = 13.9 % 12-15.5 788-0) PLT (test code = See_Comment [Automated 777-3) message] The sy stem which generated this result transmitted reference range : 166 - 358 10*3/ ?L. The reference r luca was not used to interpret this result as normal/abnormal . MPV (test code = 9.1 fL 9.5-12.9 L 73669-4) NRBC/100 WBC (test See_Comment [Automat ed code = 1841194875) message] The system which generated this result transmitted reference range : 0.0 - 10.0 /100 WBCs. The refer ence range was not u sed to interpret th is result as normal/abnormal . NRBC x10^3 (test code <0.01 See_Comment [Auto mated = 5536756454) message] The s ystem which generated this result transmitted reference range : 10*3/?L. The reference range was not used to interpret this result as normal/abnormal . GRAN MAT (NEUT) % 69.8 % (test code = 770-8) IMM GRAN % (test code 0.40 % = 0147588536) LYMPH % (test code = 21.9 % 736-9) MONO % (test code = 6.7 % 5905-5) EOS % (test code = 0.8 % 713-8) BASO % (test code = 0.4 % 706-2) GRAN MAT x10^3(ANC) 3.66 10*3/uL 1.88-7.09 (test code = 7990420158) IMM GRAN x10^3 (test <0.03 0-0.06 code = 1444079614) LYMPH x10^3 (test code 1.15 10*3/uL 1.32-3.29 L = 731-0) MONO x10^3 (test code 0.35 10*3/uL 0.33-0.92 = 742-7) EOS x10^3 (test code = 0.04 10*3/uL 0.03-0.39 711-2) BASO x10^3 (test code <0.03 0.01-0.07 = 704-7) Lab Interpretation Abnormal (test code = 71055-6) [facility] MUSCLE AB,IGG [id number] 15:17:00 Test Item Value Reference Range Interpretation Comments F-ACTIN (SMOOTH See_Comment If F-Actin (Smooth MUSCLE) AB, Muscle) Antibod y, IgG is IGG(BEAKER) (test negative, the Smooth Muscle code = 45799-5) Antibody tit er by IFA is not [...] for A IH is strong.Performe d By: [facility] [place] [address] [id number] Director: Praveena Mantilla MD [Automated mess age] The system which ge nerated this result transmit gulshan reference range : 0 - 19 Units. The refe rence range was not used to interpret this result as normal/abnormal . [facility] M2 AB, [id number] 00:28:00 Test Item Value Reference Range Interpretation Comments AMA (test code = See_Comment H REFERENCE I NTERVAL: 81187-1) Mitochondrial ( M2) Antibody, IgG ? ?20.0 [...] does not rule out PBC.Perform ed By: [facility] [place] [address] [id number] Director: Praveena Mantilla MD [Aut omated message] The sy stem which generated this result transmit gulshan reference range : 0.0 - 24.9 Units. The reference range was not used to int erpret this result as normal/abnormal . Lab Interpretation Abnormal (test code = 88561-4) [facility] CULTURE [id number] 17:01:00 Test Item Value Reference Range Interpretation Comments Blood Culture-Aerobic No organisms No growth Previo us (test code = 65190-0) isolated prelim inary verified result was Culture [...] Culture-Anaerobic isolated preliminar y (test code = 93308-5) verifi ed result was Culture In Progress [...] CDT Lab Interpretation Normal (test code = 88638-7) [facility] [id number] 14:01:00 Test Item Value Reference Range Interpretation Comments Blood Culture Coagulase negative Addition al Workup (test Staphylococcus work-up perfo rmed code = 600-7) only per reque st. Culture plate(s ) will be saved until this date : - 02/10/20 Gram stain Isolated from aerobic (test code = bottle Gram positive 664-3) cocci [facility]. METABOLIC PANEL (04100)2020-02-05 09:59:00 Test Item Value Reference Range Interpretation Comments NA (test code = 140 mmol/L 135-145 9574778864) K (test code = 3.7 mmol/L 3.5-5 7011661203) CL (test code = 107 mmol/L 98-108 4144044407) CO2 TOTAL (test code = 25 mmol/L 23-31 3618656390) AGAP (test code = 2-16 6011696749) BUN (test code = 11 mg/dL 7-23 2307732448) GLUCOSE (test code = 90 mg/dL 70-110 2764568804) CREATININE (test code = 0.58 mg/dL 0.5-1.04 6451815100) TOTAL BILI (test code = 0.9 mg/dL 0.1-1.5 7223284830) CALCIUM (test code = 8.9 mg/dL 8.6-10.6 4330401490) T PROTEIN (test code = 6.7 g/dL 6.3-8.2 5969611967) ALBUMIN (test code = 3.5 g/dL 3.5-5 9972799914) ALK PHOS (test code = 518 U/L 34-122 H 5059597760) ALTv (test code = 84 U/L 5-35 H 1742-6) AST(SGOT) (test code = 49 U/L 13-40 H 5394277660) eGFR Calculation mL/min/1.73m2 (Non-) (test code = 2634720821) eGFR Calculation mL/min/1.73m2 () (test code = 3187993663) KIM (test code = KIM) Association of [...] tests). Lab Interpretation Abnormal (test code = 20188-2) [facility] WITH [id number] 09:43:00 Test Item Value Reference Range Interpretation Comments WBC (test code = See_Comment [Automated 8090-2) message] The sy stem which generated this result transmitted reference range : 4.30 - 11.10 10*3/?L. The reference range was not used to interpret this result as normal/abnormal . RBC (test code = See_Comment L [Automated 119-8) message] The sy stem which generated this [...] RDW-SD (test code = 48.1 fL 39-49.9 86876-7) RDW-CV (test code = 13.4 % 12-15.5 788-0) PLT (test code = See_Comment [Automated 777-3) message] The sy stem which generated this result transmitted reference range : 166 - 358 10*3/ ?L. The reference r luca was not used to interpret this result as normal/abnormal . MPV (test code = 8.7 fL 9.5-12.9 L 03710-9) NRBC/100 WBC (test See_Comment [Automat ed code = 4880274334) message] The system which generated this result transmitted reference range : 0.0 - 10.0 /100 WBCs. The refer ence range was not u sed to interpret th is result as normal/abnormal . NRBC x10^3 (test code <0.01 See_Comment [Auto mated = 9327048007) message] The s ystem which generated this result transmitted reference range : 10*3/?L. The reference range was not used to interpret this result as normal/abnormal . GRAN MAT (NEUT) % 68.3 % (test code = 770-8) IMM GRAN % (test code 0.20 % = 4553918084) LYMPH % (test code = 24.2 % 736-9) MONO % (test code = 5.5 % 5905-5) EOS % (test code = 1.4 % 713-8) BASO % (test code = 0.4 % 706-2) GRAN MAT x10^3(ANC) 3.47 10*3/uL 1.88-7.09 (test code = 5475984155) IMM GRAN x10^3 (test <0.03 0-0.06 code = 0553269650) LYMPH x10^3 (test code 1.23 10*3/uL 1.32-3.29 L = 731-0) MONO x10^3 (test code 0.28 10*3/uL 0.33-0.92 L = 742-7) EOS x10^3 (test code = 0.07 10*3/uL 0.03-0.39 711-2) BASO x10^3 (test code <0.03 0.01-0.07 = 704-7) Lab Interpretation Abnormal (test code = 00231-5) [facility] CERVICAL SPINE WO [id number] 05:59:37 Mild degenerative changes most pronounced at C5-C6 and C6-C7 as above. RL: 460 AFC: [id number] Ordering physician: GET AGUILLON INDICATION: Neck pain, [...] at C5-C6 and C6-C7 as above.RL: 460AFC: [id number] signed by Minal Vaughan MD, PhD at 02/05/2020 12:59 AMUn[facility] HospitalOCCULT (GUAIAC) [id number] 14:40:00 Test Item Value Reference Range Interpretation Comments Occult (guaiac) Blood (test code = Negative Negative 2335-8) Lab Interpretation (test code = Normal 25047-6) [facility]MINAL [id number] 10:32:00 Test Item Value Reference Range Interpretation Comments NT-proBNP (test code 403 pg/mL See_Comment H [Autom ated = 7664099157) message] The system which generated this result transmitted reference range : <=125. The reference range was not used to interpret this result as normal/abnormal . KIM (test code = KIM) Biotin has been reported to cause a negative bias, interpret results relative to patient's use of biotin. Lab Interpretation Abnormal (test code = 99466-0) [facility]COMP. METABOLIC PANEL (62454)2020-02-04 10:24:00 Test Item Value Reference Range Interpretation Comments NA (test code = 138 mmol/L 135-145 8771826301) K (test code = 3.7 mmol/L 3.5-5 2032943549) CL (test code = 106 mmol/L 98-108 2676188045) CO2 TOTAL (test code = 27 mmol/L 23-31 3565768677) AGAP (test code = 2-16 9991490891) BUN (test code = 9 mg/dL 7-23 8011786784) GLUCOSE (test code = 105 mg/dL 70-110 2224733226) CREATININE (test code = 0.59 mg/dL 0.5-1.04 9235694907) TOTAL BILI (test code = 0.9 mg/dL 0.1-1.8 5339518487) CALCIUM (test code = 9.0 mg/dL 8.6-10.6 9967600086) T PROTEIN (test code = 6.4 g/dL 6.3-8.2 5370825563) ALBUMIN (test code = 3.2 g/dL 3.5-5 L 4166973226) ALK PHOS (test code = 486 U/L 34-122 H 5436329666) ALTv (test code = 91 U/L 5-35 H 1742-6) AST(SGOT) (test code = 41 U/L 13-40 H 7240854544) eGFR Calculation mL/min/1.73m2 (Non-) (test code = 4734698640) eGFR Calculation mL/min/1.73m2 () (test code = 0870105279) KIM (test code = KIM) Association of [...] tests). Lab Interpretation Abnormal (test code = 84538-7) [facility]NESIUM2020-10-22 10:24:00 Test Item Value Reference Range Interpretation Comments MAGNESIUM (test code = 0894370640) 1.8 mg/dL 1.7-2.4 Lab Interpretation (test code = Normal 85734-8) [facility] with [id number] 10:11:00 Test Item Value Reference Range Interpretation [...] RDW-SD (test code = 47.9 fL 39-49.9 22396-4) RDW-CV (test code = 13.7 % 12-15.5 788-0) PLT (test code = See_Comment [Automated 777-3) message] The sy stem which generated this result transmitted reference range : 166 - 358 10*3/ ?L. The reference r luca was not used to interpret this result as normal/abnormal . MPV (test code = 8.5 fL 9.5-12.9 L 67991-6) NRBC/100 WBC (test See_Comment [Automat ed code = 9377764067) message] The system which generated this result transmitted reference range : 0.0 - 10.0 /100 WBCs. The refer ence range was not u sed to interpret th is result as normal/abnormal . NRBC x10^3 (test code <0.01 See_Comment [Auto mated = 5827588681) message] The s ystem which generated this result transmitted reference range : 10*3/?L. The reference range was not used to interpret this result as normal/abnormal . GRAN MAT (NEUT) % 74.2 % (test code = 770-8) IMM GRAN % (test code 0.40 % = 3902070081) LYMPH % (test code = 16.6 % 736-9) MONO % (test code = 6.8 % 5905-5) EOS % (test code = 1.7 % 713-8) BASO % (test code = 0.3 % 706-2) GRAN MAT x10^3(ANC) 5.60 10*3/uL 1.88-7.09 (test code = 4077170658) IMM GRAN x10^3 (test 0.03 10*3/uL 0-0.06 code = 8188743271) LYMPH x10^3 (test code 1.25 10*3/uL 1.32-3.29 L = 731-0) MONO x10^3 (test code 0.51 10*3/uL 0.33-0.92 = 742-7) EOS x10^3 (test code = 0.13 10*3/uL 0.03-0.39 711-2) BASO x10^3 (test code <0.03 0.01-0.07 = 704-7) Lab Interpretation Abnormal (test code = 14821-1) [facility]I-NUCLEAR ANTIBODY [id number] 19:43:00 Test Item Value Reference Range Interpretation Comments LESLY (test code = Negative Negative 1247079094) KIM (test code = KIM) Cytoplasmic staining reactions observed. Negative - No Anti-Nuclear Antibodies detected by IFA.Positive - LESLY IFA screen performed with a 1:80 dilution in adults and a 1:40 dilution in pediatrics. Any LESLY "Positive" will have titer performed and reported separately. Lab Interpretation (test Normal code = 15354-1) [facility]ERULOPLASMIN2020-10-21 18:45:00 Test Item Value Reference Range Interpretation Comments CERULO (test code = 6268836562) 55 mg/dL 25-63 Lab Interpretation (test code = Normal 03675-9) [facility]aAMMONIA, [id number] 17:29:00 Test Item Value Reference Range Interpretation Comments AMMONIA (test code = 3520775596) <9 9-33 L Lab Interpretation (test code = Abnormal 29672-8) [facility]aBLOOD CULTURE [id number] 17:07:00 Test Item Value Reference Range Interpretation Comments Blood Culture-Aerobic Culture positive. No growth AA P revious (test code = 29401-2) See Blood prelim inary Culture Workup verified resu lt for additional was Culture I n information. Progress on 01/31/2020 at 1701 CDTPreviou s preliminary verified result was No growth a t 24 hours on 02/01/2020 at 1401 CDT Blood No organisms No growth Previous Culture-Anaerobic isolated preliminar y (test code = 79636-7) verifi ed result was Culture In Progress on 01/31/2020 at 1701 CDTPreviou s preliminary verified result was No growth a t 24 hours on 02/01/2020 at 1401 CDT Lab Interpretation Abnormal (test code = 09474-1) [facility]OOD CULTURE [id number] 17:07:00 Test Item Value Reference Range Interpretation [...] positive cocci is no longer being reported. [facility]aCREATINE [id number] 10:44:00 Test Item Value Reference Range Interpretation Comments CK (test code = 5067740508) 21 U/L 33-194 L Lab Interpretation (test code = Abnormal 56491-0) [facility]-TERMINAL [id number] 09:34:00 Test Item Value Reference Range Interpretation Comments NT-proBNP (test code 850 pg/mL See_Comment H [Autom ated = 9807222233) message] The system which generated this result transmitted reference range : <=125. The reference range was not used to interpret this result as normal/abnormal . KIM (test code = KIM) Biotin has been reported to cause a negative bias, interpret results relative to patient's use of biotin. Lab Interpretation Abnormal (test code = 23100-1) [facility]aCOM. METABOLIC PANEL (42013)2020-02-03 09:26:00 Test Item Value Reference Range Interpretation Comments NA (test code = 136 mmol/L 135-145 8046714195) K (test code = 3.6 mmol/L 3.5-5 1214298978) CL (test code = 104 mmol/L 98-108 1259406978) CO2 TOTAL (test code = 28 mmol/L 23-31 9899142718) AGAP (test code = 2-16 8082853703) BUN (test code = 7 mg/dL 7-23 6827438363) GLUCOSE (test code = 138 mg/dL 70-110 H 2606230381) CREATININE (test code = 0.61 mg/dL 0.5-1.04 6150278364) TOTAL BILI (test code = 1.0 mg/dL 0.1-1.6 9549960708) CALCIUM (test code = 9.2 mg/dL 8.6-10.6 0070099876) T PROTEIN (test code = 6.6 g/dL 6.3-8.2 2864143322) ALBUMIN (test code = 3.5 g/dL 3.5-5 8543981321) ALK PHOS (test code = 584 U/L 34-122 H 5807137784) ALTv (test code = 131 U/L 5-35 H 1742-6) AST(SGOT) (test code = 49 U/L 13-40 H 0484025049) eGFR Calculation mL/min/1.73m2 (Non-) (test code = 3600351090) eGFR Calculation mL/min/1.73m2 () (test code = 7270026354) KIM (test code = KIM) Association of [...] tests). Lab Interpretation Abnormal (test code = 52410-1) [facility]UM2020-10-21 09:26:00 Test Item Value Reference Range Interpretation Comments MAGNESIUM (test code = 1327054379) 1.7 mg/dL 1.7-2.4 Lab Interpretation (test code = Normal 03247-5) [facility]aPHOSPHORUS2020-10-21 09:26:00 Test Item Value Reference Range Interpretation Comments PHOSPHORUS (test code = 6619205694) 4.1 mg/dL 2.5-5 Lab Interpretation (test code = Normal 75566-9) [facility]aURIC [id number] 09:26:00 Test Item Value Reference Range Interpretation Comments URIC ACID (test code = 0123168924) 3.4 mg/dL 2.9-6 Lab Interpretation (test code = Normal 82628-3) [facility] WITH [id number] 08:58:00 Test Item Value Reference Range Interpretation Comments WBC (test code = See_Comment [Automated 1433-2) message] The sy stem which generated this result transmitted reference range : 4.30 - 11.10 10*3/?L. The reference range was not used to interpret this result as normal/abnormal . RBC (test code = See_Comment L [Automated 692-5) message] The sy stem which generated this [...] RDW-SD (test code = 47.2 fL 39-49.9 66752-7) RDW-CV (test code = 13.2 % 12-15.5 788-0) PLT (test code = See_Comment [Automated 777-3) message] The sy stem which generated this result transmitted reference range : 166 - 358 10*3/ ?L. The reference r luca was not used to interpret this result as normal/abnormal . MPV (test code = 8.7 fL 9.5-12.9 L 30470-3) NRBC/100 WBC (test See_Comment [Automat ed code = 6575446430) message] The system which generated this result transmitted reference range : 0.0 - 10.0 /100 WBCs. The refer ence range was not u sed to interpret th is result as normal/abnormal . NRBC x10^3 (test code <0.01 See_Comment [Auto mated = 9976343409) message] The s ystem which generated this result transmitted reference range : 10*3/?L. The reference range was not used to interpret this result as normal/abnormal . GRAN MAT (NEUT) % 78.4 % (test code = 770-8) IMM GRAN % (test code 0.50 % = 2376574206) LYMPH % (test code = 12.5 % 736-9) MONO % (test code = 6.1 % 5905-5) EOS % (test code = 2.1 % 713-8) BASO % (test code = 0.4 % 706-2) GRAN MAT x10^3(ANC) 6.43 10*3/uL 1.88-7.09 (test code = 6595281682) IMM GRAN x10^3 (test 0.04 10*3/uL 0-0.06 code = 1889136637) LYMPH x10^3 (test code 1.02 10*3/uL 1.32-3.29 L = 731-0) MONO x10^3 (test code 0.50 10*3/uL 0.33-0.92 = 742-7) EOS x10^3 (test code = 0.17 10*3/uL 0.03-0.39 711-2) BASO x10^3 (test code 0.03 10*3/uL 0.01-0.07 = 704-7) Lab Interpretation Abnormal (test code = 82264-6) [facility]aVALPROIC ACID, [id number] 05:42:00 Test Item Value Reference Range Interpretation Comments Valproic Acid, Free <2.0 4-15 L (test code = 8304779950) KIM (test code = KIM) Toxic Range: ? Greater than 15 ug/mL Test developed and characteristics determined by [facility]. Lab Interpretation Abnormal (test code = 51877-6) [facility]aHAV ANTIBODY (IGG AND IGM)2020-02-03 04:20:00 Test Item Value Reference Range Interpretation Comments HAV Total (test code Positive = 4521023859) HAVT Semi-Quantitative (test code = 2773962984) KIM (test code = KIM) Indicates past or present infection with HAV or exposure to HAV due to vaccination. [facility]aHEPATITIS B SURFACE [id number] 04:12:00 Test Item Value Reference Range Interpretation Comments HBsAB (test code = Negative 0440790324) HBsAb mIU/mL Semi-Quantitative (test code = 7964596639) KIM (test code = Interpretation: KIM) ?Hepatitis B Surface Antibody ? Negative - Patient is considered to be not immune to infection with HBV. ? ? Positive - Anti-HBs detected at greater than or equal to 12 mIU/mL. ?Patient is considered to be immune to infection with HBV. ? [facility]aHCV [id number] 04:12:00 Test Item Value Reference Range Interpretation Comments HCV Ab (test code = 32628-8) Negative HCV Semi-Quantitative (test code = 51753-0) [facility] B SURFACE [id number] 03:55:00 Test Item Value Reference Range Interpretation Comments HBsAg Semi-Quantitative (test code = Negative Negative 5195-3) [facility]aPROCALCITONIN2020-10-21 03:54:00 Test Item Value Reference Range Interpretation Comments Procalcitonin (test 0.05 ng/mL <0.07 code = 9980152024) KIM (test code = KIM) INTERPRETATION OF [...] lung abscess/empyema. For further information please refer to:[email or web address] Lab Interpretation Normal (test code = 58392-7) [facility]aGLYCOSYLATED HEMOGLOBIN (A1C)2020-02-02 22:47:00 Test Item Value Reference Range Interpretation Comments HGB A1C (test code = 4.5 % 4-6 4548-4) KIM (test code = KIM) %A1C (NGSP) Interpretation (ADA)4.8-5.6 ? ? Normal or (Non-Diabetic Range)5.7-6.4 ? ? Increased Risk (Pre-Diabetic)>6.5 ?Diabetes Indicated Lab Interpretation Normal (test code = 50010-0) [facility]aVALPROIC ACID, [id number] 22:28:00 Test Item Value Reference Range Interpretation Comments VALPROIC A (test code = <10 50-100 L 0691242654) KIM (test code = KIM) Toxic Range: ?Greater than 100 ug/mL Lab Interpretation (test Abnormal code = 44072-4) [facility]ascosaLIPID PANEL (46571)(TOTAL CHOLESTEROL, TRIGLYCERIDES, HDL)2020-02-02 21:23:00 Test Item Value Reference Range Interpretation Comments CHOL (test code = 343 mg/dL 120-200 H 6293960552) HDL (test code = 87 mg/dL >50 5310171599) HDLC RATIO (test code = See_Comment [Au tomated message] 5819162064) The system [employer] generated this result transmit gulshan reference range : <=4.5. The refe rence range was not u sed to interpret th is result as normal/abnormal . TRIG (test code = 131 mg/dL 30-170 2241660917) LDL CHOL (test code = 230 mg/dL See_Comment H [Auto mated message] 79345-1) The system [employer] generated this result transmit gulshan reference range : <=160. The refe rence range was not u sed to interpret th is result as normal/abnormal . VLDL (test code = 26 mg/dL 5-60 9401959195) Lab Interpretation (test Abnormal code = 73425-5) [facility]aPROTHROMBIN TIME / [id number] 21:16:00 Test Item Value Reference Range Interpretation Comments PROTIME PATIENT (test See_Comment [Auto mated message] code = 5964-2) The system [facility] generated this result transmitted ref erence range: 12.0 - 1 4.7 Seconds. The re ference range was not u sed to interpret this result as normal/abnor mal. INR (test code = 6301-6) Nor mal INR <1.1; Warfarin Therap eutic range 2.0 to 3. 0 or 2.5 to 3.5, dep ending upon the indica tions. Lab Interpretation (test Normal code = 98035-5) [facility]aCREATINE [id number] 21:15:00 Test Item Value Reference Range Interpretation Comments CK (test code = 9940669391) 37 U/L 33-194 Lab Interpretation (test code = Normal 18094-1) [facility]aLIPASE2020-10-20 12:34:00 Test Item Value Reference Range Interpretation Comments LIPASE (test code = 9822843901) 203 U/L 0-220 Lab Interpretation (test code = Normal 09040-2) [facility]aCOMP. METABOLIC PANEL (84324)2020-02-02 12:34:00 Test Item Value Reference Range Interpretation Comments NA (test code = 135 mmol/L 135-145 6993431268) K (test code = 3.5 mmol/L 3.5-5 9858601140) CL (test code = 103 mmol/L 98-108 1850695872) CO2 TOTAL (test code = 25 mmol/L 23-31 4380185558) AGAP (test code = 2-16 4641209871) BUN (test code = 8 mg/dL 7-23 7691667513) GLUCOSE (test code = 148 mg/dL 70-110 H 5449143690) CREATININE (test code = 0.55 mg/dL 0.5-1.04 3810517083) TOTAL BILI (test code = 1.2 mg/dL 0.1-1.1 H 5303757478) CALCIUM (test code = 9.4 mg/dL 8.6-10.6 0572347732) T PROTEIN (test code = 6.9 g/dL 6.3-8.2 8127788767) ALBUMIN (test code = 3.6 g/dL 3.5-5 1904099147) ALK PHOS (test code = 723 U/L 34-122 H 7052978417) ALTv (test code = 166 U/L 5-35 H 1742-6) AST(SGOT) (test code = 72 U/L 13-40 H 1272414728) eGFR Calculation mL/min/1.73m2 (Non-) (test code = 7326090605) eGFR Calculation mL/min/1.73m2 () (test code = 7786403849) KIM (test code = KIM) Association of [...] tests). Lab Interpretation Abnormal (test code = 10466-4) [facility]aLITHIUM2020-10-20 12:32:00 Test Item Value Reference Range Interpretation Comments [place] (test code = 0.4 mmol/L 0.6-1.2 L 6769810568) KIM (test code = KIM) Toxic Range: ? Greater than 1.2 mmol/L Lab Interpretation (test Abnormal code = 88457-7) [facility]aPOMD GLUCOSE (AUTOMATED)2020-02-02 11:34:00 Test Item Value Reference Range Interpretation Comments POCT GLU (test code = 0187272843) 138 mg/dL 70-110 H Lab Interpretation (test code = Abnormal 96096-6) [facility]aCOMP. METABOLIC PANEL (68284)2020-02-02 10:51:00 Test Item Value Reference Range Interpretation Comments NA (test code = 129 mmol/L 135-145 L 3500341835) K (test code = 3.0 mmol/L 3.5-5 L 9519817431) CL (test code = 100 mmol/L 98-108 0308520977) CO2 TOTAL (test code = 22 mmol/L 23-31 L 3742971365) AGAP (test code = 2-16 5428462035) BUN (test code = 8 mg/dL 7-23 7268027369) GLUCOSE (test code = 632 mg/dL 70-110 HH 0226265080) CREATININE (test code = 0.54 mg/dL 0.5-1.04 8838802960) TOTAL BILI (test code = 1.0 mg/dL 0.1-1.6 2027023968) CALCIUM (test code = 7.9 mg/dL 8.6-10.6 L 7857215624) T PROTEIN (test code = 5.3 g/dL 6.3-8.2 L 9682694396) ALBUMIN (test code = 2.7 g/dL 3.5-5 L 1246665971) ALK PHOS (test code = 562 U/L 34-122 H 9270704788) ALTv (test code = 138 U/L 5-35 H 1742-6) AST(SGOT) (test code = 61 U/L 13-40 H 2431671725) eGFR Calculation mL/min/1.73m2 (Non-) (test code = 8905304726) eGFR Calculation mL/min/1.73m2 () (test code = 3995987694) KIM (test code = KIM) Association of [...] tests). Lab Interpretation Abnormal (test code = 83283-7) [facility]2020-10-20 10:40:00 Test Item Value Reference Range Interpretation Comments LIPASE (test code = 6904126433) 140 U/L 0-220 Lab Interpretation (test code = Normal 55863-8) [facility]aLITHIUM2020-10-20 10:37:00 Test Item Value Reference Range Interpretation Comments [place] (test code = 0.5 mmol/L 0.6-1.2 L 2888759571) KIM (test code = KIM) Toxic Range: ? Greater than 1.2 mmol/L Lab Interpretation (test Abnormal code = 53826-7) [facility] WITH [id number] 09:57:00 Test Item Value Reference Range Interpretation [...] RDW-SD (test code = 47.2 fL 39-49.9 67019-4) RDW-CV (test code = 13.1 % 12-15.5 788-0) PLT (test code = See_Comment [Automated 777-3) message] The sy stem which generated this result transmitted reference range : 166 - 358 10*3/ ?L. The reference r luca was not used to interpret this result as normal/abnormal . MPV (test code = 9.7 fL 9.5-12.9 57599-3) NRBC/100 WBC (test See_Comment [Automat ed code = 2218115477) message] The system which generated this result transmitted reference range : 0.0 - 10.0 /100 WBCs. The refer ence range was not u sed to interpret th is result as normal/abnormal . NRBC x10^3 (test code <0.01 See_Comment [Auto mated = 4864518335) message] The s ystem which generated this result transmitted reference range : 10*3/?L. The reference range was not used to interpret this result as normal/abnormal . GRAN MAT (NEUT) % 78.6 % (test code = 770-8) IMM GRAN % (test code 0.50 % = 0576711591) LYMPH % (test code = 13.1 % 736-9) MONO % (test code = 5.5 % 5905-5) EOS % (test code = 2.0 % 713-8) BASO % (test code = 0.3 % 706-2) GRAN MAT x10^3(ANC) 5.18 10*3/uL 1.88-7.09 (test code = 8025187890) IMM GRAN x10^3 (test 0.03 10*3/uL 0-0.06 code = 2793718256) LYMPH x10^3 (test code 0.86 10*3/uL 1.32-3.29 L = 731-0) MONO x10^3 (test code 0.36 10*3/uL 0.33-0.92 = 742-7) EOS x10^3 (test code = 0.13 10*3/uL 0.03-0.39 711-2) BASO x10^3 (test code <0.03 0.01-0.07 = 704-7) Lab Interpretation Abnormal (test code = 20834-9) [facility]ENS DNA [id number] 06:56:00 Test Item Value Reference Range Interpretation Comments Coagulase Negative Positive Negative, See A Staphylococcus (test Comment/Narrative code = 93594-8) KIM (test code = KIM) Coagulase negative [...] contact the Antimicrobial Stewardship Program with questions.Pager: ?[phone] Testing included eleven identification and three resistance marker targets. Lab Interpretation Abnormal (test code = 24522-3) [facility] COVID [id number] 20:46:00COVID DMT InterpretationInterpretation/Recommendations\\nTests (PCR) for Active Infection [...] test is performed there is approximately a dfp-iy-toiam chance the patient had been infected and [...] and IgG antibodies, this may be the explanation.[facility] SERVICESCOVID YaznexdQISO-IcF-5 Rapid ID NOW (no units) ? ? Date ?Value ? 01/31/2020 ? Not Detected ? ? ? 08/21/2019 ? Not Detected ? [facility] SERVICESUnB[facility] [id number] 19:37:00 Test Item Value Reference Range Interpretation Comments PH (test code = 7.32-7.42 L 8884468423) PCO2 SANDHYA (test code = See_Comment [Auto mated message] 1354605981) The system [employer] generated this result transmitted ref erence range: 41 - 51 mmHg. The reference r luca was not used to interpret this result as normal/abnor mal. PO2 SANDHYA (test code = See_Comment HH [Autom ated message] 2181770888) The system [employer] generated this result transmitted ref erence range: 25 - 40 mmHg. The reference r luca was not used to interpret this result as normal/abnor mal. HCO3 SANDHYA (test code = See_Comment L [Auto mated message] 3134605595) The system [employer] generated this result transmitted ref erence range: 24 - 28 mEq/L. The reference r luca was not used to interpret this result as normal/abnor mal. AC VBE(BEAKER) (test mEq/L code = 7161395217) Lab Interpretation (test Abnormal code = 97094-5) General acute hospital ABDOMEN [id number] 17:02:17 No sonographic findings to explain patient's [...] kidneys. No appreciable atrophyor cortical thinning. No hydronephrosis.[facility] [id number] 16:35:00 Test Item Value Reference Range Interpretation Comments URINE CULTURE (test No aerobic growth (< code = 630-4) 1000 CFU/mL) [facility]aDIFF CONSULT [id number] 15:41:00 MATURE LEUKOCYTES WITH REACTIVE LYMPHOCYTES, REACTIVE MONOCYTES AND OCCASIONAL TOXIC NEUTROPHILS. RARE HYPERSEGMENTED NEUTROPHILS. MACROCYTIC ANEMIA WITH POLYCHROMASIA AND POIKILOCYTOSIS INCLUDING RICK CELLS AND TARGET CELLS. THESE CHANGES ARE SUGGESTIVE OF EARLY VITAMIN B12 DEFICIENCY ANEMIA. AMPLEPLATELETS. [facility]aPOCT GLUCOSE (AUTOMATED)2020-02-01 13:06:00 Test Item Value Reference Range Interpretation Comments POCT GLU (test code = 2787031564) 104 mg/dL 70-110 Lab Interpretation (test code = Normal 18397-9) [facility] METABOLIC PANEL (95125)2020-02-01 13:00:00 Test Item Value Reference Range Interpretation Comments NA (test code = 139 mmol/L 135-145 1953997654) K (test code = 4.1 mmol/L 3.5-5 6757572290) CL (test code = 112 mmol/L 98-108 H 7921077863) CO2 TOTAL (test code = 20 mmol/L 23-31 L 8341182080) AGAP (test code = 2-16 2802019607) BUN (test code = 16 mg/dL 7-23 3858049643) GLUCOSE (test code = 99 mg/dL 70-110 2734938865) CREATININE (test code = 0.85 mg/dL 0.5-1.04 8212537207) TOTAL BILI (test code = 1.3 mg/dL 0.1-1.1 H 8652993029) CALCIUM (test code = 8.6 mg/dL 8.6-10.6 5653723333) T PROTEIN (test code = 6.2 g/dL 6.3-8.2 L 1032836434) ALBUMIN (test code = 3.2 g/dL 3.5-5 L 1990396882) ALK PHOS (test code = 646 U/L 34-122 H 8596079632) ALTv (test code = 209 U/L 5-35 H 1742-6) AST(SGOT) (test code = 110 U/L 13-40 H 1552455503) eGFR Calculation mL/min/1.73m2 (Non-) (test code = 6157930774) eGFR Calculation mL/min/1.73m2 () (test code = 3003500794) KIM (test code = KIM) Association of [...] tests). Lab Interpretation Abnormal (test code = 84981-4) [facility]IPASE2020-10-19 11:07:00 Test Item Value Reference Range Interpretation Comments LIPASE (test code = 9807069870) 353 U/L 0-220 H Lab Interpretation (test code = Abnormal 33152-3) [facility]ITHIUM2020-10-19 11:05:00 Test Item Value Reference Range Interpretation Comments [place] (test code = 1.0 mmol/L 0.6-1.2 7549120662) KIM (test code = KIM) Toxic Range: ? Greater than 1.2 mmol/L Lab Interpretation (test Normal code = 47189-7) [facility]aCB with [id number] 10:56:00 Test Item Value Reference Range Interpretation Comments WBC (test code = See_Comment [Automated 8046-2) message] The sy stem which generated this result transmitted reference range : 4.30 - 11.10 10*3/?L. The reference range was not used to interpret this result as normal/abnormal . RBC (test code = See_Comment L [Automated 224-8) message] The sy stem which generated this [...] RDW-SD (test code = 49.7 fL 39-49.9 48723-3) RDW-CV (test code = 13.2 % 12-15.5 788-0) PLT (test code = See_Comment L [Automated 777-3) message] The sy stem which generated this result transmitted reference range : 166 - 358 10*3/ ?L. The reference r luca was not used to interpret this result as normal/abnormal . MPV (test code = 9.7 fL 9.5-12.9 79509-2) NRBC/100 WBC (test See_Comment [Automat ed code = 9348566969) message] The system which generated this result transmitted reference range : 0.0 - 10.0 /100 WBCs. The refer ence range was not u sed to interpret th is result as normal/abnormal . NRBC x10^3 (test code <0.01 See_Comment [Auto mated = 4997768784) message] The s ystem which generated this result transmitted reference range : 10*3/?L. The reference range was not used to interpret this result as normal/abnormal . GRAN MAT (NEUT) % 79.3 % (test code = 770-8) IMM GRAN % (test code 0.40 % = 3735992579) LYMPH % (test code = 11.4 % 736-9) MONO % (test code = 6.1 % 5905-5) EOS % (test code = 2.6 % 713-8) BASO % (test code = 0.2 % 706-2) GRAN MAT x10^3(ANC) 4.30 10*3/uL 1.88-7.09 (test code = 0100523266) IMM GRAN x10^3 (test <0.03 0-0.06 code = 9499058258) LYMPH x10^3 (test code 0.62 10*3/uL 1.32-3.29 L = 731-0) MONO x10^3 (test code 0.33 10*3/uL 0.33-0.92 = 742-7) EOS x10^3 (test code = 0.14 10*3/uL 0.03-0.39 711-2) BASO x10^3 (test code <0.03 0.01-0.07 = 704-7) Lab Interpretation Abnormal (test code = 88443-2) [facility] ONLY - [id number] 09:27:00 Test Item Value Reference Range Interpretation Comments RPR (Qualitative) (test code = Nonreactive Nonreactive 19240-1) Lab Interpretation (test code = Normal 43746-6) [facility]aVITAMIN B12, [id number] 06:47:00 Test Item Value Reference Range Interpretation Comments VIT B12 (test code = 257 pg/mL 240-930 3978010538) KIM (test code = KIM) Biotin has been reported to cause a positive bias, interpret results relative to patient's use of biotin. Lab Interpretation (test Normal code = 81733-2) [facility]aFOLATE2020-10-19 06:46:00 Test Item Value Reference Range Interpretation Comments FOLATE SER (test code = 15.7 ng/mL 3-20 Biot in has been 8973947305) reported to cau se a positive bias, interpret resul ts relative to patient's use o f biotin. Lab Interpretation (test Normal code = 50120-5) [facility]aOSMOLALITY [id number] 05:47:00 Test Item Value Reference Range Interpretation Comments OSMOLALITY (test code = See_Comment [Au tomated message] 3425671984) The system [employer] h generated this result transmitted ref erence range: 278 - 30 5 mOsm/kg. The re ference range was not u sed to interpret this result as normal/abnor mal. Lab Interpretation (test Normal code = 91738-0) [facility]aFERRITIN [id number] 01:01:00 Test Item Value Reference Range Interpretation Comments FERRITIN (test code = 234.0 ng/mL 11-264 5824569660) KIM (test code = KIM) Biotin has been reported to cause a negative bias, interpret results relative to patient's use of biotin. Lab Interpretation (test Normal code = 48741-4) [facility]aTHYROID STIMULATING [id number] 23:14:00 Test Item Value Reference Range Interpretation Comments TSH (test code = See_Comment Biotin has been 9020159697) reported to cau se a negative bias, interpret resul ts relative to pat pedro pablo's use of biotin. [Automated mess age] The system [employer] generated this result transmitted ref erence range: 0.45 - 4 .70 mIU/L. The refe rence range was not u sed to interpret this result as normal/abnor mal. Lab Interpretation (test Normal code = 99755-4) [facility]aIRON [id number] 22:39:00 Test Item Value Reference Range Interpretation Comments IRON (test code = 68 ug/dL 50-160 Slight hem olysis 1644840211) TIBC (test code = 271 ug/dL 250-410 5695186836) % FE SAT (test code = 25 % 20-50 1477150656) Lab Interpretation (test Normal code = 15315-3) [facility]aRETICULOCYTES [id number] 21:52:00 Test Item Value Reference Range Interpretation Comments RETIC Count Automated 2.17 % 0.51-1.9 H (test code = 4373831229) RETIC Absolute Count See_Comment [Autom ated message] (test code = 6249204724) The system which generated this result transmitted ref erence range: 0.0230 - 0.0950 10*6/?L. The reference range was not used to int erpret this result as normal/abnormal . IRF % (test code = 9.20 % 2.1-12.6 4388044978) RETIC-HE (test code = 35.1 pg 28.1-35.8 8632311286) Lab Interpretation (test Abnormal code = 73541-3) [facility]aABG+COOX+NA+K+GLU+CA2+2020-01-31 20:41:00 Test Item Value Reference Range Interpretation Comments PH (test code = 2) 7.35-7.45 L PCO2 (test code = See_Comment H [Automat ed message] 4498238693) The system [employer] generated this result transmit gulshan reference range : 35 - 45 mmHg. The reference range was not used to interpret this result as normal/abnormal . PO2 (test code = See_Comment L [Automated message] 5433865568) The system [employer] generated this result transmit gulshan reference range : 80 - 100 mmHg. The reference range was not used to interpret this result as normal/abnormal . HCO3 (test code = See_Comment L [Automate d message] 0883826010) The system [employer] generated this result transmit gulshan reference range : 22 - 26 mEq/L. The reference range was not used to interpret this result as normal/abnormal . BE (test code = See_Comment L [Automated message] 6232720885) The system [employer] generated this result transmit gulshan reference range : -3.0 - 3.0 mEq/ L. The reference r luca was not used to interpret this result as normal/abnormal . THB (test code = 9.8 g/dL 12-16 L 0062167893) %O2HB (test code = 94.0 % 94-99 0400422406) %COHB ART (test code = 0.0 % 0-1.5 4858055901) %METHB ART (test code = 0.3 % 0.4-1.5 L 8735195983) VOL%O2 ART (test code = 13.0 % 15-23 L 6634618558) NA (test code = 137 mmol/L 135-145 4644277309) K+ (test code = 4.0 mmol/L 3.5-5 5957377946) AC CA IONZ (test code = 5.10 mg/dL 4.5-5.3 2516115486) GLUCOSE (test code = 100 mg/dL 70-110 8634184600) Lab Interpretation Abnormal (test code = 22955-8) [facility]aVALPROIC ACID, [id number] 19:51:00 Test Item Value Reference Range Interpretation Comments VALPROIC A (test code = <10 50-100 L 9454674331) KIM (test code = KIM) Toxic Range: ?Greater than 100 ug/mL Lab Interpretation (test Abnormal code = 79963-3) [facility]aACETAMINOPHEN2020-10-18 19:42:00 Test Item Value Reference Range Interpretation Comments ACETAMINOP (test code = <10.0 10-30 L 2474252824) KIM (test code = KIM) Toxic: Greater than 200 ug/mL @ 4 hour post ingestion or greater than 50 ug/mL @ 12 hour post ingestion Lab Interpretation (test Abnormal code = 68272-4) [facility]aLITHIUM2020-10-18 19:41:00 Test Item Value Reference Range Interpretation Comments [place] (test code = 1.4 mmol/L 0.6-1.2 H 4188364070) KIM (test code = KIM) Toxic Range: ? Greater than 1.2 mmol/L Lab Interpretation (test Abnormal code = 78591-2) [facility]aSALICYLATE2020-10-18 19:41:00 Test Item Value Reference Range Interpretation Comments SALICYLATE (test code <10 mg/L = 9233456660) KIM (test code = KIM) Therapeutic Range: ? Analgesic and Antipyretic Use ? 20-100 mg/L ? ? Anti-Inflammatory Use ? 100-250 mg/L Toxic Range: ? Greater than 300 mg/L [facility] 1 Gvyl1234-45-15 17:46:20Impression: No acute cardiopulmonary disease. RL: ?2601 AFC: ?[id number] Chest, one view History: ?AMS . Altered state of awareness Ordering Physician: ?KIRSTIN RON Findings: The lungs are clear without focal pneumonic consolidation,pleural effusion, or pneumothorax. ?The heart size is normal. ?Themediastinal contours are normal. ?No pulmonary edema. Several scatteredcalcified granulomas noted within both lungs. [facility], Radiant Results Inft User - 01/31/2020 12:47 PM CDTChest, one viewHistory: AMS . Altered state of awarenessOrdering Physician: KIRSTIN RON Findings: The lungs are clear without focal pneumonic consolidation,pleural effusion, or pneumothorax. The heart size is normal. Themediastinal contours are normal. No pulmonary edema. Several scatteredcalcified granulomas noted within both lungs.IMPRESSIONImpression: No acute cardiopulmonary disease. RL: 2601AFC: [id number] signed by Gatito Saul MD at 01/31/2020 12:46 PMUnEastland [facility] HospitalAbdomen 1 Hybz6613-16-78 17:42:04 1. Nonobstructive intestinal bowel gas pattern. RL: ?2601 AFC: ?[id number] CLINICAL INFORMATION: Abdominal pain. Altered state of awareness Ordering Physician: WALE RON FINDINGS: Supine view of the abdomen [...] bowel.IMPRESSION1. Nonobstructive intestinal bowel gas pattern.RL: 2601AFC: [id number] signed by Gatito Saul MD at 01/31/2020 12:42 PMUnEastland Memorial HospitalETHANOL2020-10-18 17:40:00 Test Item Value Reference Range Interpretation Comments ALCOHOL (test code = <10 mg/dL 8039143021) KIM (test code = KIM) <10 Dbjshgta14-509 Toxic>100 Depression of BLOCK PLACER>400 Fatalities Reported [facility]aCREATINE [id number] 17:38:00 Test Item Value Reference Range Interpretation Comments CK (test code = 0144145589) 46 U/L 33-194 Slight hemolysis Lab Interpretation (test code Normal = 59197-1) [facility]aCT Head W/O Lcpbzqrb5377-00-63 17:05:24 Impression: 1. ?No acute intracranial process. [...] No acute intracranial process.2. Small right mastoid effusion.[facility] - DRUG SCREEN [id number] 16:57:00 Test Item Value Reference Range Interpretation Comments BENZO U (test code = Presumptive Negative A 1808848770) Positive SLIM U (test code = Negative Negative 2848478620) AMPHET (test code = Negative Negative 6382888822) THC (test code = Negative Negative 3696398002) METHADONE (test code Negative Negative = 6033988101) Meth U (test code = Negative Negative 6531522272) OPIATES (test code = Negative Negative 3795843096) Cocaine Metabolite Negative Negative (test code = 2140923854) PROPOXY (test code = Negative Negative 4763391059) Tric U (test code = Presumptive Negative A Confirma tion of 7355641923) Positive Presumptive Positive TCA result requires physician order and this will b e sent to referen ce lab. PCP (test code = Negative Negative 2013929194) OXYCOD (test code = Negative Negative 3382308952) KIM (test code = Urine Drug Cutoff [...] testing). Lab Interpretation Abnormal (test code = 81996-3) [facility]aUrinalysis2020-10-18 16:54:00 Test Item Value Reference Range Interpretation Comments APPEARANCE (test code = Hazy Clear A 0996552530) COLOR (test code = Romelia Yellow A 0812835554) PH (test code = 4.8-8.0 5789731781) SP GRAVITY (test code = 1.003-1.030 3912046178) GLU U QUAL (test code = Normal Normal 4231577116) BLOOD (test code = Negative Negative 8883706537) KETONES (test code = Negative Negative 6360255772) PROTEIN (test code = 30 mg/dL Negative A 2887-8) UROBILIN (test code = 4.0 mg/dL Normal A 0214580207) BILIRUBIN (test code = Negative Negative 1180400265) NITRITE (test code = Negative Negative 7298205935) LEUK NICHOLE (test code = 25/uL Negative A 5392772309) RBC/HPF (test code = See_Comment [Autom ated message] 8734784155) The system [employer] generated this result transmit gulshan reference range : 0 - 3 HPF. The refe rence range was not u sed to interpret th is result as normal/abnormal . WBC/HPF (test code = See_Comment H [Autom ated message] 5198942729) The system [employer] generated this result transmit gulshan reference range : 0 - 5 HPF. The refe rence range was not u sed to interpret th is result as normal/abnormal . BACTERIA (test code = Few Negative A 0822054816) MUCOUS (test code = Moderate Negative LPF A 9415539368) SQ EPITH (test code = HPF 4559078972) HYAL CAST (test code = See_Comment H [Aut omated message] 2894358428) The system [employer] generated this result transmit gulshan reference range : <=2 LPF. The refere nce range was not u sed to interpret th is result as normal/abnormal . GRAN CASTS (test code = See_Comment H [Au tomated message] 3714578024) The system [employer] generated this result transmit gulshan reference range : <=1 LPF. The refere nce range was not u sed to interpret th is result as normal/abnormal . Lab Interpretation (test Abnormal code = 52501-7) [facility]aCOVID[facility] (ID NOW RAPID TESTING)2020-01-31 16:39:00 Test Item Value Reference Range Interpretation Comments SARS-CoV-2 Rapid ID NOW Not Detected Not Detected (test code = 54458-4) KIM (test code = KIM) ID NOW COVID-19 Assay is an isothermal nucleic acid amplification test intended for the qualitative detection of nucleic acid from SARS-CoV-2 viral RNA in nasopharyngeal (CRYSTAL MOUNTER) specimens. It is used under Emergency Use [...] indicated. Lab Interpretation Normal (test code = 26542-6) [facility]aTroponin [id number] 16:38:00 Test Item Value Reference Range Interpretation Comments TROPONIN I (test <0.012 See_Comment [Automated code = 7520680670) message] The system which generated this result [...] ? Lab Interpretation Normal (test code = 84894-4) [facility]aN-TERMINAL [id number] 16:34:00 Test Item Value Reference Range Interpretation Comments NT-proBNP (test code 283 pg/mL See_Comment H [Autom ated = 3480605690) message] The system which generated this result transmitted reference range : <=125. The reference range was not used to interpret this result as normal/abnormal . KIM (test code = KIM) Biotin has been reported to cause a negative bias, interpret results relative to patient's use of biotin. Lab Interpretation Abnormal (test code = 64423-1) [facility]cosaBasi Metabolic Panel (NA, K, CL, CO2, GLUCOSE, BUN, CREATININE, CA)2020-01-31 16:26:00 Test Item Value Reference Range Interpretation Comments NA (test code = 134 mmol/L 135-145 L 2654862109) K (test code = 4.9 mmol/L 3.5-5 1713508888) CL (test code = 107 mmol/L 98-108 0529168704) CO2 TOTAL (test code = 19 mmol/L 23-31 L 6831834121) AGAP (test code = 2-16 3149379788) BUN (test code = 30 mg/dL 7-23 H 7047100510) GLUCOSE (test code = 106 mg/dL 70-110 6174519241) CREATININE (test code = 2.21 mg/dL 0.5-1.04 H 6083044333) CALCIUM (test code = 9.5 mg/dL 8.6-10.6 0915428356) eGFR Calculation mL/min/1.73m2 (Non-) (test code = 6602066415) eGFR Calculation mL/min/1.73m2 () (test code = 6129130114) KIM (test code = KIM) Association of [...] tests). Lab Interpretation Abnormal (test code = 78590-5) [facility]aHepatic Function Panel (ALB, T.PRO, BILI T, BU/BC, ALT, AST, ALK PHOS)2020-01-31 16:26:00 Test Item Value Reference Range Interpretation Comments TOTAL BILI (test code = 0268010052) 1.5 mg/dL 0.1-1.1 H BILI UNCON (test code = 3026133789) 0.4 mg/dL 0.1-1.1 BILI CONJ (test code = 1815470025) 0.0 mg/dL 0-0.3 T PROTEIN (test code = 9743217582) 8.0 g/dL 6.3-8.2 ALBUMIN (test code = 5634638689) 4.0 g/dL 3.5-5 ALK PHOS (test code = 1984528431) 714 U/L 34-122 H ALTv (test code = 1742-6) 352 U/L 5-35 H AST(SGOT) (test code = 3713621935) 256 U/L 13-40 H Lab Interpretation (test code = Abnormal 63399-2) [facility]cosaLipase [id number] 16:26:00 Test Item Value Reference Range Interpretation Comments LIPASE (test code = 6492340739) 410 U/L 0-220 H Lab Interpretation (test code = Abnormal 06756-7) [facility]aAMMONIA, [id number] 16:25:00 Test Item Value Reference Range Interpretation Comments AMMONIA (test code = 32 umol/L 9-33 Slight hemolysis 3644127930) Lab Interpretation (test Normal code = 86203-6) [facility]aCBC with Juxtjhqzupmb4737-25-41 16:13:00 Test Item Value Reference Range Interpretation Comments WBC (test code = See_Comment [Automated 9790-2) message] The sy stem which generated this result transmitted reference range : 4.30 - 11.10 10*3/?L. The reference range was not used to interpret this result as normal/abnormal . RBC (test code = See_Comment L [Automated 999-8) message] The sy stem which generated this [...] (test code = 51.4 fL 39-49.9 H 17984-8) RDW-CV (test code = 13.7 % 12-15.5 788-0) PLT (test code = See_Comment [Automated 777-3) message] The sy stem which generated this result transmitted reference range : 166 - 358 10*3/ ?L. The reference r luca was not used to interpret this result as normal/abnormal . MPV (test code = 10.3 fL 9.5-12.9 15640-0) NRBC/100 WBC (test See_Comment [Automat ed code = 1076996242) message] The system which generated this result transmitted reference range : 0.0 - 10.0 /100 WBCs. The refer ence range was not u sed to interpret th is result as normal/abnormal . NRBC x10^3 (test code <0.01 See_Comment [Auto mated = 7225947271) message] The s ystem which generated this result transmitted reference range : 10*3/?L. The reference range was not used to interpret this result as normal/abnormal . GRAN MAT (NEUT) % 77.1 % (test code = 770-8) IMM GRAN % (test code 0.40 % = 5417546356) LYMPH % (test code = 12.2 % 736-9) MONO % (test code = 5.7 % 5905-5) EOS % (test code = 4.3 % 713-8) BASO % (test code = 0.3 % 706-2) GRAN MAT x10^3(ANC) 5.97 10*3/uL 1.88-7.09 (test code = 2050298364) IMM GRAN x10^3 (test 0.03 10*3/uL 0-0.06 code = 1628541053) LYMPH x10^3 (test code 0.94 10*3/uL 1.32-3.29 L = 731-0) MONO x10^3 (test code 0.44 10*3/uL 0.33-0.92 = 742-7) EOS x10^3 (test code = 0.33 10*3/uL 0.03-0.39 711-2) BASO x10^3 (test code <0.03 0.01-0.07 = 704-7) Lab Interpretation Abnormal (test code = 58737-3) [facility]aLactic Acid Whole [id number] 16:03:00 Test Item Value Reference Range Interpretation Comments LACTIC ACID (test code = 1.03 mmol/L 0.3-2.6 8433843618) Lab Interpretation (test code = Normal 31625-2) [facility]aCT ABDOMEN PELVIS W [id number] 23:00:141. ?Mild circumferential urinary bladder wall thickening [...] the pancreatic duct, unchanged since February2019. Recommend MRI/MRCP.[facility]aElli Leon 2019-12-18 21:36:00 Test Item Value Reference Range Interpretation Comments TROPONIN I (test <0.012 See_Comment [Automated code = 9152536794) message] The system which generated this result [...] ? Lab Interpretation Normal (test code = 84459-1) [facility] Test Item Value Reference Range Interpretation Comments APPEARANCE (test code = Clear Clear 2515697593) COLOR (test code = Yellow Yellow 4268679698) PH (test code = 4.8-8.0 8352570780) SP GRAVITY (test code = 1.003-1.030 4785672181) GLU U QUAL (test code = Normal Normal 0323892967) BLOOD (test code = Negative Negative 8005310156) KETONES (test code = Negative Negative 0775251452) PROTEIN (test code = Negative Negative 2887-8) UROBILIN (test code = 4.0 mg/dL Normal A 1159170523) BILIRUBIN (test code = Negative Negative 3784590057) NITRITE (test code = Negative Negative 4707416549) LEUK NICHOLE (test code = Negative Negative 2842281763) RBC/HPF (test code = See_Comment [Autom ated message] 2503164501) The system [employer] generated this result transmit gulshan reference range : 0 - 3 HPF. The refe rence range was not u sed to interpret th is result as normal/abnormal . WBC/HPF (test code = See_Comment [Autom ated message] 3562382394) The system [employer] generated this result transmit gulshan reference range : 0 - 5 HPF. The refe rence range was not u sed to interpret th is result as normal/abnormal . BACTERIA (test code = Few Negative A 2410097902) MUCOUS (test code = Slight Negative LPF A 7498924340) SQ EPITH (test code = HPF 0739477558) HYAL CAST (test code = See_Comment [Aut omated message] 5983871134) The system [employer] generated this result transmit gulshan reference range : <=2 LPF. The refere nce range was not u sed to interpret th is result as normal/abnormal . Lab Interpretation (test Abnormal code = 45887-4) [facility] [id number] 21:29:00 Test Item Value Reference Range Interpretation [...] (test code = 54.6 fL 39-49.9 H 88317-9) RDW-CV (test code = 14.9 % 12-15.5 788-0) PLT (test code = See_Comment L [Automated 777-3) message] The sy stem which generated this result transmitted reference range : 166 - 358 10*3/ ?L. The reference r luca was not used to interpret this result as normal/abnormal . MPV (test code = 9.5 fL 9.5-12.9 70703-7) IPF % (test code = 1.5 % 1.3-7.7 Platelet count 3071192267) measured by fluorescence method. NRBC/100 WBC (test See_Comment [Automat ed code = 8542198600) message] The system which generated this result transmitted reference range : 0.0 - 10.0 /100 WBCs. The refer ence range was not u sed to interpret th is result as normal/abnormal . NRBC x10^3 (test code <0.01 See_Comment [Auto mated = 6376624169) message] The s ystem which generated this result transmitted reference range : 10*3/?L. The reference range was not used to interpret this result as normal/abnormal . GRAN MAT (NEUT) % 64.0 % (test code = 770-8) IMM GRAN % (test code 1.00 % = 0465636950) LYMPH % (test code = 22.5 % 736-9) MONO % (test code = 11.0 % 5905-5) EOS % (test code = 1.0 % 713-8) BASO % (test code = 0.5 % 706-2) GRAN MAT x10^3(ANC) 2.61 10*3/uL 1.88-7.09 (test code = 5180190500) IMM GRAN x10^3 (test 0.04 10*3/uL 0-0.06 code = 2731438497) LYMPH x10^3 (test code 0.92 10*3/uL 1.32-3.29 L = 731-0) MONO x10^3 (test code 0.45 10*3/uL 0.33-0.92 = 742-7) EOS x10^3 (test code = 0.04 10*3/uL 0.03-0.39 711-2) BASO x10^3 (test code <0.03 0.01-0.07 = 704-7) Lab Interpretation Abnormal (test code = 47862-3) [facility] Metabolic Panel (NA, K, CL, CO2, GLUCOSE, BUN, CREATININE, CA)2019-12-18 21:25:00 Test Item Value Reference Range Interpretation Comments NA (test code = 138 mmol/L 135-145 9733199186) K (test code = 4.8 mmol/L 3.5-5 0274555401) CL (test code = 104 mmol/L 98-108 7625959651) CO2 TOTAL (test code = 27 mmol/L 23-31 2468992580) AGAP (test code = 2-16 5617140870) BUN (test code = 12 mg/dL 7-23 2941387674) GLUCOSE (test code = 101 mg/dL 70-110 9905373209) CREATININE (test code 0.70 mg/dL 0.5-1.04 = 6344606130) CALCIUM (test code = 9.3 mg/dL 8.6-10.6 2152944225) eGFR Calculation mL/min/1.73m2 (Non-) (test code = 3036269192) eGFR Calculation mL/min/1.73m2 () (test code = 1015366564) KIM (test code = KIM) Association of [...] or urine or abnormalities in imaging tests). [facility] (ALB, T.PRO, BILI T, BU/BC, ALT, AST, ALK PHOS)2019-12-18 21:25:00 Test Item Value Reference Range Interpretation Comments TOTAL BILI (test code = 3134397480) 1.0 mg/dL 0.1-1.1 BILI UNCON (test code = 2894561510) 0.6 mg/dL 0.1-1.1 BILI CONJ (test code = 0374363143) 0.0 mg/dL 0-0.3 T PROTEIN (test code = 0647160942) 7.8 g/dL 6.3-8.2 ALBUMIN (test code = 9953938226) 4.3 g/dL 3.5-5 ALK PHOS (test code = 0945370683) 580 U/L 34-122 H ALTv (test code = 1742-6) 199 U/L 5-35 H AST(SGOT) (test code = 1234439066) 215 U/L 13-40 H Lab Interpretation (test code = Abnormal 83466-3) [facility] [id number] 21:25:00 Test Item Value Reference Range Interpretation Comments LIPASE (test code = 9923529203) 267 U/L 0-220 H Lab Interpretation (test code = Abnormal 14176-6) [facility] 1 VW [id number] 02:17:38 No findings suggestive of COVID-19 pneumonia. Disclaimer: Generally, the findings on chest imaging in COVID-19 are notspecific, and overlap with other infections, including influenza, H1N1,SARS and MERS.According to the Centers for Disease Control (CDC) and the [employer], viral testing remains the only [...] Centers for Disease Control (CDC) and the [employer], viraltesting remains the only specific method of diagnosiseven if CXR or CT findings are suggestive of COVID-19. Preliminary Report Dictated by Resident: Ritchie Merchant MD., have reviewed this study and agree with the abovereport.[facility] CORONAVIRUS COVID-19 [id number] 02:11:00 Test Item Value Reference Range Interpretation Comments SARS-CoV-2 (test code = Not Detected Not Detected 17070-7) KIM (test code = KIM) ID NOW COVID-19 Assay is an isothermal nucleic acid amplification test intended for the qualitative detection of nucleic acid from SARS-CoV-2 viral RNA in nasopharyngeal (CRYSTAL MOUNTER) specimens. It is used under Emergency Use [...] indicated. Lab Interpretation Normal (test code = 00508-0) [facility] [id number] 01:42:00 Test Item Value Reference Range Interpretation Comments TROPONIN I (test <0.012 See_Comment [Automated code = 7702843213) message] The system which generated this result [...] ? Lab Interpretation Normal (test code = 90890-9) [facility] (20331)2019-08-22 01:30:00 Test Item Value Reference Range Interpretation Comments NA (test code = 142 mmol/L 135-145 7934407601) K (test code = 4.1 mmol/L 3.5-5 9133930451) CL (test code = 106 mmol/L 98-108 4063740026) CO2 TOTAL (test code = 28 mmol/L 23-31 1238790180) AGAP (test code = 2-16 9900309333) BUN (test code = 16 mg/dL 7-23 2338102137) GLUCOSE (test code = 141 mg/dL 70-110 H 7003764920) CREATININE (test code = 0.75 mg/dL 0.5-1.04 7927019771) TOTAL BILI (test code = 0.8 mg/dL 0.1-1.5 1325340328) CALCIUM (test code = 9.6 mg/dL 8.6-10.6 2231949143) T PROTEIN (test code = 7.8 g/dL 6.3-8.2 8054430159) ALBUMIN (test code = 4.1 g/dL 3.5-5 8626512756) ALK PHOS (test code = 664 U/L 34-122 H 8972118160) ALTv (test code = 82 U/L 5-35 H 1742-6) AST(SGOT) (test code = 111 U/L 13-40 H 7056469562) eGFR Calculation mL/min/1.73m2 (Non-) (test code = 3138439402) eGFR Calculation mL/min/1.73m2 () (test code = 8848227086) KIM (test code = KIM) Association of [...] tests). Lab Interpretation Abnormal (test code = 29962-3) [facility], [id number] 01:30:00 Test Item Value Reference Range Interpretation Comments LIPASE (test code = 2810716015) 87 U/L 0-220 Lab Interpretation (test code = Normal 12957-3) [facility]2020-05-09 01:29:00 Test Item Value Reference Range Interpretation Comments APTT Patient (test See_Comment [Automat ed code = 3173-2) message] The system which generated this result transmitted reference range : 23 - 38 Seconds . The reference range was not used to interpr et this result as normal/abnormal . KIM (test code = KIM) The [facility] patient population mean normal value for aPTT is 30 seconds. Lab Interpretation Normal (test code = 47628-3) [facility]aPROTHROMBIN TIME / [id number] 01:27:00 Test Item Value Reference Range Interpretation [...] tions. Lab Interpretation (test Normal code = 15913-4) [facility]2020-05-09 01:25:00 Test Item Value Reference Range Interpretation Comments APPEARANCE (test code = Hazy Clear A 8992928937) COLOR (test code = Romelia Yellow A 7041294441) PH (test code = 4.8-8.0 1619771901) SP GRAVITY (test code = 1.003-1.030 1077463565) GLU U QUAL (test code = Normal Normal 5297331546) BLOOD (test code = Negative Negative 9452210379) KETONES (test code = Negative Negative 9616749676) PROTEIN (test code = 30 mg/dL Negative A 2887-8) UROBILIN (test code = 4.0 mg/dL Normal A 7779837739) BILIRUBIN (test code = Negative Negative 5896566874) NITRITE (test code = Positive Negative A 2374238800) LEUK NICHOLE (test code = 500/uL Negative A 4295756149) RBC/HPF (test code = See_Comment H [Autom ated message] 4450276455) The system [employer] generated this result transmit gulshan reference range : 0 - 3 HPF. The refe rence range was not u sed to interpret th is result as normal/abnormal . WBC/HPF (test code = See_Comment H [Autom ated message] 4553637205) The system [employer] generated this result transmit gulshan reference range : 0 - 5 HPF. The refe rence range was not u sed to interpret th is result as normal/abnormal . BACTERIA (test code = Many Negative A 2561966673) MUCOUS (test code = Moderate Negative LPF A 4257710360) SQ EPITH (test code = HPF 2605457495) Lab Interpretation (test Abnormal code = 86810-0) [facility] WITH [id number] 01:18:00 Test Item Value Reference Range Interpretation [...] RDW-SD (test code = 44.3 fL 39-49.9 41836-3) RDW-CV (test code = 12.6 % 12-15.5 788-0) PLT (test code = See_Comment [Automated 777-3) message] The sy stem which generated this result transmitted reference range : 166 - 358 10*3/ ?L. The reference r luca was not used to interpret this result as normal/abnormal . MPV (test code = 9.1 fL 9.5-12.9 L 03301-7) NRBC/100 WBC (test See_Comment [Automat ed code = 3243141607) message] The system which generated this result transmitted reference range : 0.0 - 10.0 /100 WBCs. The refer ence range was not u sed to interpret th is result as normal/abnormal . NRBC x10^3 (test code <0.01 See_Comment [Auto mated = 5398877004) message] The s ystem which generated this result transmitted reference range : 10*3/?L. The reference range was not used to interpret this result as normal/abnormal . GRAN MAT (NEUT) % 71.0 % (test code = 770-8) IMM GRAN % (test code 1.70 % = 6427829173) LYMPH % (test code = 16.1 % 736-9) MONO % (test code = 9.8 % 5905-5) EOS % (test code = 1.1 % 713-8) BASO % (test code = 0.3 % 706-2) GRAN MAT x10^3(ANC) 2.47 10*3/uL 1.88-7.09 (test code = 0957659307) IMM GRAN x10^3 (test 0.06 10*3/uL 0-0.06 code = 4584210755) LYMPH x10^3 (test code 0.56 10*3/uL 1.32-3.29 L = 731-0) MONO x10^3 (test code 0.34 10*3/uL 0.33-0.92 = 742-7) EOS x10^3 (test code = 0.04 10*3/uL 0.03-0.39 711-2) BASO x10^3 (test code <0.03 0.01-0.07 = 704-7) Lab Interpretation Abnormal (test code = 35090-6) [facility] [id number] 23:39:00 Test Item Value Reference Range Interpretation Comments TROPONIN I (test 0.005 ng/mL See_Comment [Automated code = 0311560442) message] The system which generated this result [...] ? Lab Interpretation Normal (test code = 13022-5) [facility] Metabolic Panel (NA, K, CL, CO2, GLUCOSE, BUN, CREATININE, CA)2019-06-25 23:27:00 Test Item Value Reference Range Interpretation Comments NA (test code = 138 mmol/L 135-145 1259971689) K (test code = 4.3 mmol/L 3.5-5 5025681934) CL (test code = 103 mmol/L 98-108 5657635925) CO2 TOTAL (test code = 27 mmol/L 23-31 7045334589) AGAP (test code = 2-16 5880515835) BUN (test code = 16 mg/dL 7-23 4788838646) GLUCOSE (test code = 106 mg/dL 70-110 2116351777) CREATININE (test code 0.66 mg/dL 0.5-1.04 = 4574811031) CALCIUM (test code = 9.1 mg/dL 8.6-10.6 0692538810) eGFR Calculation mL/min/1.73m2 (Non-) (test code = 8862143355) eGFR Calculation mL/min/1.73m2 () (test code = 5009171418) KIM (test code = KIM) Association of [...] or urine or abnormalities in imaging tests). [facility] [id number] 23:27:00 Test Item Value Reference Range Interpretation Comments LIPASE (test code = 3437953048) 55 U/L 0-220 Lab Interpretation (test code = Normal 34602-4) [facility] (ALB, T.PRO, BILI T, BU/BC, ALT, AST, ALK PHOS)2019-06-25 23:27:00 Test Item Value Reference Range Interpretation Comments TOTAL BILI (test code = 8546088609) 1.0 mg/dL 0.1-1.1 BILI UNCON (test code = 3371425423) 0.2 mg/dL 0.1-1.1 BILI CONJ (test code = 8369059636) 0.0 mg/dL 0-0.3 T PROTEIN (test code = 9799073527) 7.8 g/dL 6.3-8.2 ALBUMIN (test code = 4165393238) 4.3 g/dL 3.5-5 ALK PHOS (test code = 5223078514) 622 U/L 34-122 H ALTv (test code = 1742-6) 126 U/L 5-35 H AST(SGOT) (test code = 0775338128) 180 U/L 13-40 H Lab Interpretation (test code = Abnormal 86446-0) [facility] WITH [id number] 23:23:00 Test Item Value Reference Range Interpretation [...] (test code = 51.3 fL 39-49.9 H 91531-4) RDW-CV (test code = 14.9 % 12-15.5 788-0) PLT (test code = See_Comment [Automated 777-3) message] The sy stem which generated this result transmitted reference range : 166 - 358 10*3/ ?L. The reference r luca was not used to interpret this result as normal/abnormal . MPV (test code = 9.3 fL 9.5-12.9 L 21075-7) NRBC/100 WBC (test See_Comment [Automat ed code = 9928145793) message] The system which generated this result transmitted reference range : 0.0 - 10.0 /100 WBCs. The refer ence range was not u sed to interpret th is result as normal/abnormal . NRBC x10^3 (test code <0.01 See_Comment [Auto mated = 5834320228) message] The s ystem which generated this result transmitted reference range : 10*3/?L. The reference range was not used to interpret this result as normal/abnormal . GRAN MAT (NEUT) % 67.4 % (test code = 770-8) IMM GRAN % (test code 0.60 % = 8017183493) LYMPH % (test code = 20.6 % 736-9) MONO % (test code = 9.4 % 5905-5) EOS % (test code = 1.7 % 713-8) BASO % (test code = 0.3 % 706-2) GRAN MAT x10^3(ANC) 2.43 10*3/uL 1.88-7.09 (test code = 3579212385) IMM GRAN x10^3 (test <0.03 0-0.06 code = 1668146007) LYMPH x10^3 (test code 0.74 10*3/uL 1.32-3.29 L = 731-0) MONO x10^3 (test code 0.34 10*3/uL 0.33-0.92 = 742-7) EOS x10^3 (test code = 0.06 10*3/uL 0.03-0.39 711-2) BASO x10^3 (test code <0.03 0.01-0.07 = 704-7) Lab Interpretation Abnormal (test code = 07095-9) [facility] 22:51:00 Test Item Value Reference Range Interpretation Comments APPEARANCE (test code = Clear Clear 8185094830) COLOR (test code = Yellow Yellow 2506286280) PH (test code = 4.8-8.0 2877064931) SP GRAVITY (test code = 1.003-1.030 8664026109) GLU U QUAL (test code = Negative Negative 3397303248) BLOOD (test code = Negative Negative 5165202782) KETONES (test code = Negative Negative 7790620292) PROTEIN (test code = Negative Negative 2887-8) UROBILIN (test code = 1.0 mg/dL See_Comment [Auto mated message] 6404730617) The system [employer] generated this result transmit gulshan reference range : 0-1.0 mg/dL. Th e reference range was not used to interpret this result as normal/abnormal . BILIRUBIN (test code = Small Negative A 3876257684) NITRITE (test code = Negative Negative 0264389767) LEUK NICHOLE (test code = Negative Negative 0339809056) RBC/HPF (test code = See_Comment [Autom ated message] 7917558834) The system [employer] generated this result transmit gulshan reference range : 0 - 3 HPF. The refe rence range was not u sed to interpret th is result as normal/abnormal . WBC/HPF (test code = See_Comment [Autom ated message] 5642637971) The system [employer] generated this result transmit gulshan reference range : 0 - 5 HPF. The refe rence range was not u sed to interpret th is result as normal/abnormal . BACTERIA (test code = Negative Negative 9451376490) Ictotest (test code = Negative 6221240760) Lab Interpretation (test Abnormal code = 75000-9) [facility], [id number] 22:10:00 Test Item Value Reference Range Interpretation Comments PREG SERUM (test code Negative = 5335114212) KIM (test code = KIM) Less than 10 IU/L. ?If low titer or ectopic is suspected, resubmit specimen in 48-72 hours. [facility] WITH [id number] 22:10:00 Test Item Value Reference Range Interpretation [...] RDW-SD (test code = 49.4 fL 39-49.9 18592-9) RDW-CV (test code = 14.6 % 12-15.5 788-0) PLT (test code = See_Comment [Automated 777-3) message] The sy stem which generated this result transmitted reference range : 166 - 358 10*3/ ?L. The reference r luca was not used to interpret this result as normal/abnormal . MPV (test code = 9.1 fL 9.5-12.9 L 82404-9) NRBC/100 WBC (test See_Comment [Automat ed code = 4756103570) message] The system which generated this result transmitted reference range : 0.0 - 10.0 /100 WBCs. The refer ence range was not u sed to interpret th is result as normal/abnormal . NRBC x10^3 (test code <0.01 See_Comment [Auto mated = 6158724276) message] The s ystem which generated this result transmitted reference range : 10*3/?L. The reference range was not used to interpret this result as normal/abnormal . GRAN MAT (NEUT) % 48.3 % (test code = 770-8) IMM GRAN % (test code 0.30 % = 3512923769) LYMPH % (test code = 38.9 % 736-9) MONO % (test code = 9.8 % 5905-5) EOS % (test code = 2.4 % 713-8) BASO % (test code = 0.3 % 706-2) GRAN MAT x10^3(ANC) 1.78 10*3/uL 1.88-7.09 L (test code = 9496171537) IMM GRAN x10^3 (test <0.03 0-0.06 code = 6967832758) LYMPH x10^3 (test code 1.43 10*3/uL 1.32-3.29 = 731-0) MONO x10^3 (test code 0.36 10*3/uL 0.33-0.92 = 742-7) EOS x10^3 (test code = 0.09 10*3/uL 0.03-0.39 711-2) BASO x10^3 (test code <0.03 0.01-0.07 = 704-7) Lab Interpretation Abnormal (test code = 55087-9) [facility] 20:58:00 Test Item Value Reference Range Interpretation Comments APPEARANCE (test code = Hazy Clear A 4898281364) COLOR (test code = Yellow Yellow 3029360109) PH (test code = 4.8-8.0 0998071972) SP GRAVITY (test code = 1.003-1.030 5383190460) GLU U QUAL (test code = Normal Normal 7472025374) BLOOD (test code = Negative Negative 9276059881) KETONES (test code = Negative Negative 0629034528) PROTEIN (test code = Negative Negative 2887-8) UROBILIN (test code = 4.0 mg/dL Normal A 3753814175) BILIRUBIN (test code = Negative Negative 0660872176) NITRITE (test code = Negative Negative 9939261067) LEUK NICHOLE (test code = Negative Negative 5407436218) RBC/HPF (test code = See_Comment [Autom ated message] 4738458571) The system [employer] generated this result transmit gulshan reference range : 0 - 3 HPF. The refe rence range was not u sed to interpret th is result as normal/abnormal . WBC/HPF (test code = See_Comment [Autom ated message] 4071019762) The system [employer] generated this result transmit gulshan reference range : 0 - 5 HPF. The refe rence range was not u sed to interpret th is result as normal/abnormal . BACTERIA (test code = Many Negative A 6411702304) MUCOUS (test code = Slight Negative LPF A 2734295817) SQ EPITH (test code = HPF 6696461876) HYAL CAST (test code = See_Comment [Aut omated message] 4801888092) The system [employer] generated this result transmit gulshan reference range : <=2 LPF. The refere nce range was not u sed to interpret th is result as normal/abnormal . Lab Interpretation (test Abnormal code = 33372-4) [facility] (NA, K, CL, CO2, GLUCOSE, BUN, CREATININE, CA)2019-06-19 20:51:00 Test Item Value Reference Range Interpretation Comments NA (test code = 141 mmol/L 135-145 9105918477) K (test code = 4.5 mmol/L 3.5-5 8412750106) CL (test code = 107 mmol/L 98-108 7397598442) CO2 TOTAL (test code = 25 mmol/L 23-31 5903294779) AGAP (test code = 2-16 7550660319) BUN (test code = 16 mg/dL 7-23 6104243172) GLUCOSE (test code = 89 mg/dL 70-110 9444360485) CREATININE (test code 0.50 mg/dL 0.5-1.04 = 4505104371) CALCIUM (test code = 9.0 mg/dL 8.6-10.6 7417755009) eGFR Calculation mL/min/1.73m2 (Non-) (test code = 7959792651) eGFR Calculation mL/min/1.73m2 () (test code = 9365323590) KIM (test code = KIM) Association of [...] or urine or abnormalities in imaging tests). [facility] (ALB, T.PRO, BILI T, BU/BC, ALT, AST, ALK PHOS)2019-06-19 20:51:00 Test Item Value Reference Range Interpretation Comments TOTAL BILI (test code = 8210902195) 0.9 mg/dL 0.1-1.1 BILI UNCON (test code = 5474693333) 0.5 mg/dL 0.1-1.1 BILI CONJ (test code = 0353163443) 0.0 mg/dL 0-0.3 T PROTEIN (test code = 2022764178) 8.0 g/dL 6.3-8.2 ALBUMIN (test code = 3681624311) 4.3 g/dL 3.5-5 ALK PHOS (test code = 4829133389) 613 U/L 34-122 H ALTv (test code = 1742-6) 115 U/L 5-35 H AST(SGOT) (test code = 8419285273) 157 U/L 13-40 H Lab Interpretation (test code = Abnormal 34763-1) [facility] [id number] 20:51:00 Test Item Value Reference Range Interpretation Comments LIPASE (test code = 9913179424) 89 U/L 0-220 Lab Interpretation (test code = Normal 64607-7) [facility] ABDOMEN PELVIS W [id number] 03:36:50 No acute intra-abdominal abnormality. Hepatosplenomegaly with [...] No suspicious lytic or sclerotic bony lesions. MildL4/N3pwbspdntjnk and left L5/S1 facet arthrosis. IMPRESSIONNo acute intra-abdominal abnormality.Hepatosplenomegaly with diffuse fatty infiltration of the liver. Preliminary Report Dictated by Resident: Helena Turner, Apolinar Montes MD., have reviewed this study and agree withthe above report.[facility] 2019-05-20 01:38:00 Test Item Value Reference Range Interpretation Comments NA (test code = 141 mmol/L 135-145 1101830484) K (test code = 4.0 mmol/L 3.5-5 5392499848) CL (test code = 105 mmol/L 98-108 5934741566) CO2 TOTAL (test code = 24 mmol/L 23-31 0952840236) AGAP (test code = 2-16 6178126136) BUN (test code = 23 mg/dL 7-23 4541701433) GLUCOSE (test code = 110 mg/dL 70-110 9977201711) CREATININE (test code = 0.68 mg/dL 0.5-1.04 0046985931) TOTAL BILI (test code = 1.0 mg/dL 0.1-1.0 9591435817) CALCIUM (test code = 9.4 mg/dL 8.6-10.6 9744355846) T PROTEIN (test code = 8.1 g/dL 6.3-8.2 7394348115) ALBUMIN (test code = 4.7 g/dL 3.5-5 5696983692) ALK PHOS (test code = 575 U/L 34-122 H 7668082829) ALTv (test code = 112 U/L 5-35 H 1742-6) AST(SGOT) (test code = 112 U/L 13-40 H 0260738214) eGFR Calculation mL/min/1.73m2 (Non-) (test code = 0097809074) eGFR Calculation mL/min/1.73m2 () (test code = 8022370404) KIM (test code = KIM) Association of [...] tests). Lab Interpretation Abnormal (test code = 79257-7) [facility], [id number] 01:38:00 Test Item Value Reference Range Interpretation Comments LIPASE (test code = 0702707574) 65 U/L 0-220 Lab Interpretation (test code = Normal 91974-5) [facility] 01:30:00 Test Item Value Reference Range Interpretation Comments APPEARANCE (test code = Clear Clear 4306418496) COLOR (test code = Romelia Yellow A 6062318534) PH (test code = 4.8-8.0 7323569665) SP GRAVITY (test code = 1.003-1.030 2792139967) GLU U QUAL (test code = Normal Normal 7384958148) BLOOD (test code = Negative Negative 5226316136) KETONES (test code = Negative Negative 1924779829) PROTEIN (test code = Negative Negative 2887-8) UROBILIN (test code = 2.0 mg/dL Normal A 3877845675) BILIRUBIN (test code = Negative Negative 9705020920) NITRITE (test code = Negative Negative 1715454309) [place] (test code = Negative Negative 8135754544) RBC/HPF (test code = See_Comment H [Autom ated message] 4333761620) The system [employer] generated this result transmit gulshan reference range : 0 - 3 HPF. The refe rence range was not u sed to interpret th is result as normal/abnormal . WBC/HPF (test code = See_Comment [Autom ated message] 0268939885) The system [employer] generated this result transmit gulshan reference range : 0 - 5 HPF. The refe rence range was not u sed to interpret th is result as normal/abnormal . BACTERIA (test code = Few Negative A 1683493847) MUCOUS (test code = Slight Negative LPF A 1481845479) SQ EPITH (test code = HPF 4272982964) Lab Interpretation (test Abnormal code = 71091-9) [facility] WITH [id number] 01:24:00 Test Item Value Reference Range Interpretation [...] RDW-SD (test code = 49.0 fL 39-49.9 23588-6) RDW-CV (test code = 14.3 % 12-15.5 788-0) PLT (test code = See_Comment [Automated 777-3) message] The sy stem which generated this result transmitted reference range : 166 - 358 10*3/ ?L. The reference r luca was not used to interpret this result as normal/abnormal . MPV (test code = 10.2 fL 9.5-12.9 66091-6) NRBC/100 WBC (test See_Comment [Automat ed code = 1028033035) message] The system which generated this result transmitted reference range : 0.0 - 10.0 /100 WBCs. The refer ence range was not u sed to interpret th is result as normal/abnormal . NRBC x10^3 (test code <0.01 See_Comment [Auto mated = 2177407376) message] The s ystem which generated this result transmitted reference range : 10*3/?L. The reference range was not used to interpret this result as normal/abnormal . GRAN MAT (NEUT) % 65.5 % (test code = 770-8) IMM GRAN % (test code 0.50 % = 6668878878) LYMPH % (test code = 24.7 % 736-9) MONO % (test code = 8.6 % 5905-5) EOS % (test code = 0.5 % 713-8) BASO % (test code = 0.2 % 706-2) GRAN MAT x10^3(ANC) 4.37 10*3/uL 1.88-7.09 (test code = 4622348941) IMM GRAN x10^3 (test 0.03 10*3/uL 0-0.06 code = 4720841940) LYMPH x10^3 (test code 1.64 10*3/uL 1.32-3.29 = 731-0) MONO x10^3 (test code 0.57 10*3/uL 0.33-0.92 = 742-7) EOS x10^3 (test code = 0.03 10*3/uL 0.03-0.39 711-2) BASO x10^3 (test code <0.03 0.01-0.07 = 704-7) Lab Interpretation Abnormal (test code = 17806-2) [facility] [id number] 16:39:33 Distal tibial spiral fracture with entrance [...] is seen. The ankle mortise is anatomic. [facility] - [facility]/05/2018 11:41 AM CDTEXAM:CT ANKLE [...] anterolateral tibialplafond without tibial plafond articular incongruity. [facility] TIBIA FIBULA 2 VW [id number] 20:06:10 Comminuted mildly displaced distal tibia fracture [...] of the intertarsal and TMT joints isidentified. [facility], [facility] - 12/01/2018 3:08 PM CDTEXAM: XR [...] extending to the tibialplafond.Nondisplaced proximal fibular shaft fracture.[facility] FOOT 3+ VW [id number] 20:06:10 Comminuted mildly displaced distal tibia fracture [...] extending to the tibialplafond.Nondisplaced proximal fibular shaft fracture.[facility] [id number] 21:51:00 Test Item Value Reference Range Interpretation Comments URINE CULTURE (test 10,000 - 100,000 CFU/mL code = 630-4) mixed aerobic organisms - suggests endogenous microbial contamination [facility]aHELICOBACTER PYLORI AB, [id number] 14:31:00 Test Item Value Reference Range Interpretation Comments Helicobacter pylori IgG Negative Negative Antibody (test code = 0688456176) KIM (test code = KIM) Negative - No H. pylori IgG antibody detected.Positive - Indicates presence of detectable IgG antibodies. Does not distinguish between past or current infection, or between active infection and colonization.Invalid - A second sample should be sent. Lab Interpretation (test Normal code = 17532-5) [facility] Metabolic Panel (NA, K, CL, CO2, GLUCOSE, BUN, CREATININE, CA)2018-11-16 10:15:00 Test Item Value Reference Range Interpretation Comments NA (test code = 140 mmol/L 135-145 8662520880) K (test code = 3.9 mmol/L 3.5-5 6368822637) CL (test code = 105 mmol/L 98-108 6602552983) CO2 TOTAL (test code = 30 mmol/L 23-31 9558873718) AGAP (test code = 2-16 0497234645) BUN (test code = 16 mg/dL 7-23 7776894448) GLUCOSE (test code = 104 mg/dL 70-110 8524300797) CREATININE (test code 0.52 mg/dL 0.5-1.04 = 2450229237) CALCIUM (test code = 8.6 mg/dL 8.6-10.6 1003803094) eGFR Calculation mL/min/1.73m2 (Non-) (test code = 8809375665) eGFR Calculation mL/min/1.73m2 () (test code = 5749684645) KIM (test code = KIM) Association of [...] or urine or abnormalities in imaging tests). [facility] WITH [id number] 09:47:00 Test Item Value Reference Range Interpretation [...] RDW-SD (test code = 47.8 fL 39-49.9 33841-6) RDW-CV (test code = 13.5 % 12-15.5 788-0) PLT (test code = See_Comment [Automated 777-3) message] The sy stem which generated this result transmitted reference range : 166 - 358 10*3/ ?L. The reference r luca was not used to interpret this result as normal/abnormal . MPV (test code = 9.9 fL 9.5-12.9 86227-4) NRBC/100 WBC (test See_Comment [Automat ed code = 6276906623) message] The system which generated this result transmitted reference range : 0.0 - 10.0 /100 WBCs. The refer ence range was not u sed to interpret th is result as normal/abnormal . NRBC x10^3 (test code <0.01 See_Comment [Auto mated = 6180535374) message] The s ystem which generated this result transmitted reference range : 10*3/?L. The reference range was not used to interpret this result as normal/abnormal . GRAN MAT (NEUT) % 56.8 % (test code = 770-8) IMM GRAN % (test code 0.40 % = 6080286638) LYMPH % (test code = 27.2 % 736-9) MONO % (test code = 9.1 % 5905-5) EOS % (test code = 5.8 % 713-8) BASO % (test code = 0.7 % 706-2) GRAN MAT x10^3(ANC) 2.55 10*3/uL 1.88-7.09 (test code = 4725801708) IMM GRAN x10^3 (test <0.03 0-0.06 code = 7285639899) LYMPH x10^3 (test code 1.22 10*3/uL 1.32-3.29 L = 731-0) MONO x10^3 (test code 0.41 10*3/uL 0.33-0.92 = 742-7) EOS x10^3 (test code = 0.26 10*3/uL 0.03-0.39 711-2) BASO x10^3 (test code 0.03 10*3/uL 0.01-0.07 = 704-7) Lab Interpretation Abnormal (test code = 10081-6) [facility]YCOSYL[facility] HEMOGLOBIN (A1C)2018-11-16 04:33:00 Test Item Value Reference [...] Indicated Lab Interpretation Normal (test code = 82904-6) [facility]aHCV [id number] 02:23:00 Test Item Value Reference Range Interpretation Comments HCV Semi-Quantitative (test code = 54123-0) [facility] B SURFACE [id number] 02:23:00 Test Item Value Reference Range Interpretation Comments HBsAB (test code = Negative 8523483620) HBsAb mIU/mL Semi-Quantitative (test code = 6077092516) KIM (test code = Interpretation:?Hepatitis KIM) B Surface Antibody? ? Negative - Patient is considered to be not immune to infection with HBV.? Positive - Anti-HBs detected at greater than or equal to 12 mIU/mL.?Patient is considered to be immune to infection with HBV.? [facility] A VIRUS ANTIBODY [id number] 02:11:00 Test Item Value Reference Range Interpretation Comments HAVM Semi-Quantitative (test code = 53245-3) KIM (test code = HAVAb IgM Interpretative KIM) Information:Reactive greater than or equal to 1.2Biotin has been reported to cause a negative bias, interpret results relative to patient's use of biotin. [facility] B CORE ANTIBODY [id number] 02:11:00 Test Item Value Reference Range Interpretation Comments HBCM Semi-Quantitative (test code = 17693-2) KIM (test code = Biotin has been reported KIM) to cause a negative bias, interpret results relative to patient's use of biotin. [facility]aABORH [id number] 00:49:22 Test Item Value Reference Range Interpretation Comments ABO & RH (test code O Positive Performe d at [facility] = 20) Laboratory Serv [facility] Blood [address] [address]Rjsy Free: [phone] A No. [id number] [facility]aUrinalysis2019-08-04 00:29:00 Test Item Value Reference Range Interpretation Comments APPEARANCE (test code = Clear Clear 0212843484) COLOR (test code = Yellow Yellow 6401078300) PH (test code = 4.8-8.0 5856276172) SP GRAVITY (test code = 1.003-1.030 H 8474571858) GLU U QUAL (test code = Normal Normal 7174893584) BLOOD (test code = Negative Negative 4456846719) KETONES (test code = Negative Negative 3206470732) PROTEIN (test code = Negative Negative 2887-8) UROBILIN (test code = 4.0 mg/dL Normal A 8853460198) BILIRUBIN (test code = Negative Negative 0727693004) NITRITE (test code = Negative Negative 4604048947) LEUK NICHOLE (test code = Negative Negative 2887874131) RBC/HPF (test code = See_Comment H [Autom ated message] 2767834836) The system [employer] generated this result transmit gulshan reference range : 0 - 3 HPF. The refe rence range was not u sed to interpret th is result as normal/abnormal . WBC/HPF (test code = See_Comment [Autom ated message] 1242591860) The system [employer] generated this result transmit gulshan reference range : 0 - 5 HPF. The refe rence range was not u sed to interpret th is result as normal/abnormal . BACTERIA (test code = Negative Negative 8571068825) SQ EPITH (test code = See_Comment [Auto mated message] 9402187279) The system [employer] generated this result transmit gulshan reference range : <=2 HPF. The refere nce range was not u sed to interpret th is result as normal/abnormal . Lab Interpretation (test Abnormal code = 11945-1) [facility] and Screen - ONCE Pctubkj2233-03-27 00:15:31 Test Item Value Reference Range Interpretation Comments ABO & RH (test code O POSITIVE Performe d at [facility] = 20) Laboratory Serv [facility] Blood Bank3 [address] [facility] [place] [address]Yasw Free: [phone] A No. [id number] IAT (test code = Negative Performed a t [facility] 1185) Laboratory Serv [facility] Blood Bank3 [address] [facility] [place] [address]Xbaf Free: [phone] A No. [id number] [facility]aTROPONIN [id number] 00:04:00 Test Item Value Reference Range Interpretation Comments TROPONIN I (test 0.002 ng/mL See_Comment [Automated code = 5096350823) message] The system which generated this result [...] ? Lab Interpretation Normal (test code = 97992-8) [facility]aLIPID PANEL (89996)(TOTAL CHOLESTEROL, TRIGLYCERIDES, HDL)2018-11-15 23:58:00 Test Item Value Reference Range Interpretation Comments CHOL (test code = 289 mg/dL 120-200 H 3773344901) HDL (test code = 97 mg/dL >50 5188926939) HDLC RATIO (test code = See_Comment [Au tomated message] 8781038818) The system [employer] generated this result transmit gulshan reference range : <=4.5. The refe rence range was not u sed to interpret th is result as normal/abnormal . TRIG (test code = 52 mg/dL 30-170 2016441458) LDL CHOL (test code = 182 mg/dL See_Comment H [Auto mated message] 33908-7) The system [employer] generated this result transmit gulshan reference range : <=160. The refe rence range was not u sed to interpret th is result as normal/abnormal . VLDL (test code = 10 mg/dL 5-60 7901123982) Lab Interpretation (test Abnormal code = 42905-3) [facility] ABDOMEN PELVIS W [id number] 17:09:23 1.?No acute intra-abdominal or pelvic abnormality. [...] is seen along the lower lumbar spine. [facility], Radiant Results [facility] User - 11/15/2018 12:09 [...] spine.IMPRESSION1. No acuteintra-abdominal or pelvic abnormality.2. Splenomegaly, unchanged.[facility]aACETAMINOPHEN 2018-11-15 16:52:00 Test Item Value Reference Range Interpretation Comments ACETAMINOP (test code = <10.0 10-30 L 2101092979) KIM (test code = KIM) Toxic: Greater than 200 ug/mL @ 4 hour post ingestion or greater than 50 ug/mL @ 12 hour post ingestion Lab Interpretation (test Abnormal code = 55281-3) [facility] CHEST 1 [id number] 15:23:59 1.?No acute cardiopulmonary abnormality.* * * [...] fortechnique. Bones: No acute osseous abnormality isseen. [facility], Radiant Results [facility] User - 11/15/2018 10:24 [...] acute osseousabnormality is seen.IMPRESSION1. No acute cardiopulmonary abnormality.[facility]aTroponin [id number] 15:19:00 Test Item Value Reference Range Interpretation Comments TROPONIN I (test 0.014 ng/mL See_Comment [Automated code = 6215626406) message] The system which generated this result [...] ? Lab Interpretation Normal (test code = 08034-6) [facility]aN-TERMINAL [id number]-[id number] 15:16:00 Test Item Value Reference Range Interpretation Comments NT-proBNP (test code 29 pg/mL See_Comment [Autom ated = 1760661672) message] The system which generated this result transmitted reference range : <=125. The reference range was not used to interpret this result as normal/abnormal . KIM (test code = KIM) Biotin has been reported to cause a negative bias, interpret results relative to patient's use of biotin. Lab Interpretation Normal (test code = 18258-7) [facility] Met[facility] (NA, K, CL, CO2, GLUCOSE, BUN, CREATININE, CA)2018-11-15 15:07:00 Test Item Value Reference Range Interpretation Comments NA (test code = 142 mmol/L 135-145 6372318830) K (test code = 5.1 mmol/L 3.5-5 H 3954432775) CL (test code = 107 mmol/L 98-108 4979532511) CO2 TOTAL (test code = 26 mmol/L 23-31 6849057021) AGAP (test code = 2-16 6444126528) BUN (test code = 22 mg/dL 7-23 8985663027) GLUCOSE (test code = 93 mg/dL 70-110 4216049767) CREATININE (test code = 0.47 mg/dL 0.5-1.04 L 7273714493) CALCIUM (test code = 8.9 mg/dL 8.6-10.6 2446494966) eGFR Calculation mL/min/1.73m2 (Non-) (test code = 8458684626) eGFR Calculation mL/min/1.73m2 () (test code = 5434925799) KIM (test code = KIM) Association of [...] tests). Lab Interpretation Abnormal (test code = 47783-3) [facility] Function Panel (ALB, T.PRO, BILI T, BU/BC, ALT, AST, ALK PHOS)2018-11-15 15:07:00 Test Item Value Reference Range Interpretation Comments TOTAL BILI (test code = 2791912533) 1.1 mg/dL 0.1-1.1 BILI UNCON (test code = 7181819634) 0.4 mg/dL 0.1-1.1 BILI CONJ (test code = 3178761200) 0.0 mg/dL 0-0.3 T PROTEIN (test code = 8692403695) 8.2 g/dL 6.3-8.2 ALBUMIN (test code = 1382473937) 4.2 g/dL 3.5-5 ALK PHOS (test code = 7280278742) 723 U/L 34-122 H ALT(SGPT) (test code = 4774601045) 196 U/L 9-51 H AST(SGOT) (test code = 7778985588) 194 U/L 13-40 H Lab Interpretation (test code = Abnormal 84149-2) [facility]aLipase Nleuu7525-33-64 15:07:00 Test Item Value Reference Range Interpretation Comments LIPASE (test code = 7111260964) 185 U/L 0-220 Lab Interpretation (test code = Normal 48140-7) [facility]aaPTT2019-08-03 14:58:00 Test Item Value Reference Range Interpretation Comments APTT Patient (test See_Comment [Automat ed code = 3173-2) message] The system which generated this result transmitted reference range : 23 - 38 Seconds . The reference range was not used to interpr et this result as normal/abnormal . KIM (test code = KIM) The [facility] patient population mean normal value for aPTT is 30 seconds. Lab Interpretation Normal (test code = 62277-3) [facility]aProthrombin Time (PT) / [id number] 14:55:00 Test Item Value Reference Range Interpretation [...] tions. Lab Interpretation (test Normal code = 80003-4) [facility]aCBC WITH [id number] 14:47:00 Test Item Value Reference Range Interpretation [...] RDW-SD (test code = 47.1 fL 39-49.9 32739-0) RDW-CV (test code = 13.4 % 12-15.5 788-0) PLT (test code = See_Comment [Automated 777-3) message] The sy stem which generated this result transmitted reference range : 166 - 358 10*3/ ?L. The reference r luca was not used to interpret this result as normal/abnormal . MPV (test code = 10.0 fL 9.5-12.9 27242-8) NRBC/100 WBC (test See_Comment [Automat ed code = 0044625402) message] The system which generated this result transmitted reference range : 0.0 - 10.0 /100 WBCs. The refer ence range was not u sed to interpret th is result as normal/abnormal . NRBC x10^3 (test code <0.01 See_Comment [Auto mated = 3714223974) message] The s ystem which generated this result transmitted reference range : 10*3/?L. The reference range was not used to interpret this result as normal/abnormal . GRAN MAT (NEUT) % 54.5 % (test code = 770-8) IMM GRAN % (test code 0.40 % = 7636888952) LYMPH % (test code = 26.5 % 736-9) MONO % (test code = 10.5 % 5905-5) EOS % (test code = 7.4 % 713-8) BASO % (test code = 0.7 % 706-2) GRAN MAT x10^3(ANC) 2.43 10*3/uL 1.88-7.09 (test code = 6973268894) IMM GRAN x10^3 (test <0.03 0-0.06 code = 0860292737) LYMPH x10^3 (test code 1.18 10*3/uL 1.32-3.29 L = 731-0) MONO x10^3 (test code 0.47 10*3/uL 0.33-0.92 = 742-7) EOS x10^3 (test code = 0.33 10*3/uL 0.03-0.39 711-2) BASO x10^3 (test code 0.03 10*3/uL 0.01-0.07 = 704-7) Lab Interpretation Abnormal (test code = 12561-4) [facility]aCulture, Ehuvb0710-45-73 15:57:00 Test Item Value Reference Range Interpretation Comments Culture, Urine (test NF code = URC) Culture, Urine (test 10 NSF code = URC1) * This is an EDIT ED result. * A prior r esult that was reported as final has been changed. Wkiggnksmt0295-58-32 22:53:00 Test Item Value Reference Range Interpretation [...] = UACAST) CAST LPF Urine Source: Urine Atfmvb15983 SURGICAL PATHOLOGY, LEVEL [id number] 14:31:[address] [address] Laboratory Printed: 07/09/[address] [place] [address] DAEMPathology Page: 1 Patient: ZEKE ROMERO Birthdate: 1960 Age/Sex: 56/F Spec#: [id number]: HERMES SALAZAR Specimen Date: 07/08/17 [...] Pathologist:Kelvin Conway Entered by:07/09/17 - 1429 PROCEDURES: 58796,48846/4 Patient: ZEKE ROMERO Re07/03/17Loc: T4-A MR#: [id number] CONTINUED ON NEXT PAGE Dis: 07/09/17ta: DIS IN - [facility] [address] [place] [address] Laboratory Printed: 07/09/[address] [place] [address] [facility] Page: 2 Patient: ZEKE ROMERO [id number] (Continued) GROSS DESCRIPTION A. LIVER BIOPSY LEFT [...] 07/09/17 Patient: ZEKE ROMERO Re07/03/17Loc: T4-A MR#: [id number] END OF REPORT Dis: 07/09/17ta: DIS QDXwtcsdshk7377-17-55 05:13:00 Test Item Value Reference Range Interpretation [...] U/L 8-55 H = ALT) Reference Lab Fbdivgy4394-42-11 04:14:00 Test Item Value Reference Range Interpretation Comments Reference Lab 10 U/mL 0-35 Laurent ECLIA Testing (test code methodolo gyPerformed at: HD = CA199) - [facility] [address] [place] [id number] Di aimee: Chico Suero MD, Phone : [phone] Reference Lab Djguupc1426-20-38 16:14:00 Test Item Value Reference Range Interpretation Comments Reference Lab Testing 128.5 Units 0.0-20.0 H (test code = MARLON) Negative 0.0 - 20.0 Equivocal 20.1 - 24.9 Positive >24.9Mitochondr ial (M2) Antibodies are found in 90-96% ofpatients with primary biliary cirrhosis.Perfo rmed at: [address] [id number] Director: Pj Rider MD, [facility] ne: [phone] Reference Lab Ydwfqkw9271-97-58 16:14:00 Test Item Value Reference Range Interpretation [...] testing of p ositive sera with both IA-3 and MPO-ANCA enzyme immunoassays. A s many as 5% serumsamples are positive only b y EIA. Ref. AM J Clin Tbdzlq5560;111: 507-513. Reference Lab <1:20 titer Neg:<1:20 The atypical p ANCA pattern Testing (test has been obser chelita in code = ATANCA) asignificant percentage of patients with u lcerative colitis,primary sclerosing cholangitis and autoimmune hepatitis.Perfo rmed at: BN - [facility] [address] [id number] Di aimee: Chester ramírez MD, Phone: [phone] Bqdohribh9129-29-16 05:12:00 Test Item Value Reference Range Interpretation [...] 8-55 H code = ALT) Reference Lab Qsqyzkv7493-08-02 22:07:00 Test Item Value Reference Range Interpretation Comments Reference Lab Testing 785 IU/L 39-117 H (test code = ISOALKT) Reference Lab Testing 25 % 14-68 (test code = ISOALKBT) Reference Lab Testing 74 % 18-85 (test code = ISOALKLT) Reference Lab Testing 1 % 0-18 Perfor med at: HD - (test code = ISOALKIT) [facility] [place], [place] [address]Bw b Director: Chico Suero MD, Phone: [phone] [facility] at: [facility] [id number] Di aimee: Chester ramírez MD, Phone: [phone] Mubeqmdaf9556-84-17 11:48:00 Test Item Value Reference Range Interpretation [...] code = ALT) 92 U/L 8-55 H Nprealora4057-56-65 06:08:00 Test Item Value Reference Range Interpretation [...] 8.5 mg/dL 7.8-10.44 N code = CA) Xegyhnedr1978-05-67 06:06:00 Test Item Value Reference Range Interpretation [...] code = ALT) 129 U/L 8-55 H Aqqbrzynos7542-53-54 05:57:00 Test Item Value Reference Range Interpretation [...] code = BASO#) 0.0 thou/uL 0.0-0.2 N Hulesevqieu6637-10-46 05:55:00 Test Item Value Reference Range Interpretation [...] - 4. 0 CRITICAL: > 4.0 Anticoagulant? YDSTJcedhnrbu0302-99-30 05:36:00 Test Item Value Reference Range Interpretation [...] 8.9 mg/dL 7.8-10.44 N code = CA) Umnynpvob1649-31-66 05:33:00 Test Item Value Reference Range Interpretation [...] code = ALT) 160 U/L 8-55 H Pchtjucefj4864-18-41 05:28:00 Test Item Value Reference Range Interpretation [...] 0.1 thou/uL 0.0-0.2 N Chemistry - Elizabeth Arujnxn0837-55-09 13:02:00 Test Item Value Reference Range Interpretation [...] Inserts - Directions forU se, June,August 02, Blood cell Storage ic. Dwalrvsnz3657-09-92 05:00:00 Test Item Value Reference Range Interpretation [...] code = ALT) 144 U/L 8-55 H Cvvunhgbk9632-57-40 04:50:00 Test Item Value Reference Range Interpretation [...] 8.4 mg/dL 7.8-10.44 N code = CA) Xzlktvshnb9309-58-76 04:39:00 Test Item Value Reference Range Interpretation [...] code = BASO#) 0.0 thou/uL 0.0-0.2 N Okxzhyxkk7374-36-29 17:07:00 Test Item Value Reference Range Interpretation Comments Chemistry (test code = IGG) 1032.00 mg/dL 552-1631 N Eijokecmf0676-18-49 17:07:00 Test Item Value Reference Range Interpretation Comments Chemistry (test code = IGM) 215.00 mg/dL 33-293 N Wfvryoxhjh7043-44-50 00:50:00 Test Item Value Reference Range Interpretation [...] UABLD) Urine Source: Urine Clean CatchChemistry - Ucdcqeha3473-69-59 00:25:00 Test Item Value Reference Range Interpretation Comments Chemistry - Specials (test Non-Reactive NonReactive code = THEPAIGM) Chemistry - Specials (test Non-Reactive S/CO NonReactive code = THBSAG) Chemistry - Specials (test Non-Reactive NonReactive code = INTHBCM) Chemistry - Specials (test Non-Reactive NonReactive code = INTHEPC) Cdmftrlwk1996-52-43 22:12:00 Test Item Value Reference Range Interpretation [...] code 196 U/L 8-55 H = ALT) Ibtrmnruy6372-16-90 22:12:00 Test Item Value Reference Range Interpretation Comments Chemistry (test code = LIP) 22 U/L 8-78 N Ufxwvivymq5455-71-23 21:50:00 Test Item Value Reference Range Interpretation [...] code = BASO#) 0.1 thou/uL 0.0-0.2 N Koygzbxdn9095-23-10 22:49:00 Test Item Value Reference Range Interpretation [...] 78 U/L 8-55 H code = ALT) Bfdjndrtm1705-59-00 22:49:00 Test Item Value Reference Range Interpretation Comments Chemistry (test code = LIP) 12 U/L 8-78 N Bmhloxhdun6451-61-60 22:24:00 Test Item Value Reference Range Interpretation [...] code = BASO#) 0.0 thou/uL 0.0-0.2 N Bjzvckpmvu6262-74-01 22:00:00 Test Item Value Reference Range Interpretation [...] UABLD) Negative Negative Urine Source: Urine Clean BylfrGfruubvx7300-10-37 09:28:00 Test Item Value Reference Range Interpretation Comments Accuchek (test code = ACU) 99 mg/dL 70-110 N Ukbqdgkvdw9098-80-15 09:14:00 Test Item Value Reference Range Interpretation [...] UABLD) Negative Negative Urine Source: Urine Clean CmbefLoommmngjm4111-43-40 21:28:00 Test Item Value Reference Range Interpretation [...] UABLD) Negative Negative Urine Source: Urine Clean FnuiyWupbcdifu3260-44-54 21:09:00 Test Item Value Reference Range Interpretation [...] 95 U/L 8-55 H code = ALT) [id number] 21:09:00 Test Item Value Reference Range Interpretation Comments Chemistry (test code = LIP) 39 U/L 8-78 N [id number] 20:49:00 Test Item Value Reference Range Interpretation [...] code = BASO#) 0.0 thou/uL 0.0-0.2 N [id number] 21:34:00 Test Item Value Reference Range Interpretation [...] desired. Presu mptive positive urines are held [facility]. Urine Source: Urine Clean [id number] 19:17:00 Test Item Value Reference Range Interpretation [...] = UABLD) Negative Negative Urine Source: Urine [id number] 18:48:00 Test Item Value Reference Range Interpretation [...] code 84 U/L 8-55 H = ALT) [id number] 18:48:00 Test Item Value Reference Range Interpretation Comments Chemistry (test code = JORGE) 53.0 U/L 25-125 N [id number] 18:48:00 Test Item Value Reference Range Interpretation Comments Chemistry (test code = LIP) 10 U/L 8-78 N [id number] 18:19:00 Test Item Value Reference Range Interpretation [...] = BASO#) 0.1 thou/uL 0.0-0.2 N Culture, [id number] 10:22:00 Test Item Value Reference Range Interpretation Comments Culture, Urine (test code = URC) NF N Culture, Urine (test code = URC1) 10 MSF N [id number] 17:38:00 Test Item Value Reference Range Interpretation Comments Chemistry (test code = PHOS) 2.9 mg/dL 2.3-4.7 N [id number] 17:04:00 Test Item Value Reference Range Interpretation [...] H = ALT) Chemistry - BNP, HgbA1c, [id number] 17:04:00 Test Item Value Reference Range Interpretation Comments Chemistry - BNP, 4.9 % 4.0-6.0 N Therapeutic goals for glycemic HgbA1c, PTHi (test control ( ADA)Adults:- Goal of code = YZSH1FS) therapy: Les s than 7.0% HbA1c- Action suggeste d: Greater than 8.0% [id number] tric patients:- Toddlers and pr eschoolers: Less than 8.5% (but Greater than 7.5%)- Katelynn ool age (6-12 years): Less th an 8%- Adolescents and young adults (13-19 years): Less than 7.5%Diagnosing diabetes (ADA)- HbA1c: Greater than or equal to 6.5% Values of 5.7 - 6.4% indicate HIGH risk for developing DiabetesInterna tional Expert Committee Repor t on the Role of the B1PArbvz in the Diagnosis of Di abetes. Diabetes Care 2009July;32(7): 1327-1334ADA, Diagnosis cla ssification of diabetes [facility].Diabetes Care 2010; 33 S uppl 1:S62 [id number] 16:59:00 Test Item Value Reference Range Interpretation Comments Chemistry (test code = CRP) 1.16 mg/dL = or < 0.5 H What test does the doctor want? C-REACTIVE PROTEIN (CRP)[id number] 16:53:00 Test Item Value Reference Range Interpretation [...] HPF None Seen Urine Source: Urine Clean [id number] 16:46:00 Test Item Value Reference Range Interpretation [...] code = BASO#) 0.1 thou/uL 0.0-0.2 N [id number] 21:59:00 Test Item Value Reference Range Interpretation [...] Urine Clean CatchSepsis - Lactic Acid >2 [id number] 23:59:00 Test Item Value Reference Range Interpretation Comments Sepsis - Lactic Additional Lactate testin g will be Acid >2 Rflx performed in 3 hrs (test code = according to [facility] IUSZO2R) SepsisProtocol. [id number] 21:12:00 Test Item Value Reference Range Interpretation Comments Chemistry (test code = JORGE) 59.0 U/L 25-125 N [id number] 20:59:00 Test Item Value Reference Range Interpretation [...] 87 U/L 8-55 H code = ALT) [id number] 20:59:00 Test Item Value Reference Range Interpretation Comments Chemistry (test code = LIP) 32 U/L 8-78 N Chemistry - [id number] 20:59:00 Test Item Value Reference Range Interpretation Comments Chemistry - Lactate (test code = 2.1 mmol/L 0.5-2.2 N LACTSEP-T) [id number] 20:43:00 Test Item Value Reference Range Interpretation [...] = UABLD) Negative Negative Urine Source: Urine [id number] 20:37:00 Test Item Value Reference Range Interpretation [...]
--- NOTE | 2021-03-27 22:07 | ER ---
Nurse's Notes [facility] Name: Yessenia Aleman Age: 60 yrs Sex: Female : 1960 Arrival Date: 03/27/2021 Time: 20:35 Bed 9 Private MD: Jeannie Slaed Diagnosis: Laceration without foreign body of oral cavity-frenulum laceration Presentation: 03/27 20:56 Chief complaint: Patient states: Patient states while sleeping her dentures broke and da3 cut her under her tongue. Not bleeding. Coronavirus screen: Vaccine status: Patient reports receiving the 2nd dose of the covid vaccine. Ebola Screen: No symptoms or risks identified at this time. Initial Sepsis Screen: Does the patient meet any 2 criteria? No. Patient's initial sepsis screen is negative. Does the patient have a suspected source of infection? No. Patient's initial sepsis screen is negative. Risk Assessment: Do you want to hurt yourself or someone else? Patient reports no desire to harm self or others. Onset of symptoms was March 27, 2021. 20:56 Method Of Arrival: Ambulatory da3 20:56 Acuity: HOLLI 4 da3 Triage Assessment: 20:56 General: Appears in no apparent distress. uncomfortable, Behavior is calm, cooperative. da3 20:56 Pain: Pain currently is 8 out of 10 on a pain scale. da3 Historical: - Allergies: 21:42 Codeine; bb - Immunization history:: Client reports receiving the 2nd dose of the Covid vaccine. - Social history:: Smoking status: Patient denies any tobacco usage or history of. - Family history:: not pertinent. Screenin:42 Abuse screen: Denies threats or abuse. Nutritional screening: No deficits noted. bb Tuberculosis screening: No symptoms or risk factors identified. Fall Risk None identified. Assessment: 21:40 General: Appears in no apparent distress. Behavior is calm, cooperative. Pain: Denies bb pain. Neuro: Level of Consciousness is awake, alert, obeys commands, Oriented to person, place, time, situation. Cardiovascular: Capillary refill < 3 seconds Patient's skin is warm and dry. Respiratory: Respiratory effort is even, unlabored, Respiratory pattern is regular. GI: No signs and/or symptoms were reported involving the gastrointestinal system. EENT: small laceration to frenulum not bleeding. Derm: Skin is pink, warm \T\ dry. Musculoskeletal: Circulation, motion, and sensation intact. 22:17 Reassessment: Patient is alert, oriented x 3, equal unlabored respirations, skin bb warm/dry/pink. pt verbalized understanding of and agrees to plan of care discharge instructions given pt ambulated with steady gait to exit. Vital Signs: 20:56 BP 163 / 118; Pulse 85; Resp 22; Temp 98.0; Pulse Ox 99% on R/A; Weight 80.74 kg; da3 Height 5 ft. 0 in. (152.40 cm); 20:56 Body Mass Index 34.76 (80.74 kg, 152.40 cm) da3 ED Course: 20:35 Patient arrived in ED. es 20:36 Jeannie Slade MD is Private Physician. es 20:56 Arm band placed on right wrist. da3 20:58 Triage completed. da3 21:32 Kyler Flores MD is Attending Physician. irene 21:40 Rosanna Lu, RN is Primary Nurse. bb 21:42 Patient has correct armband on for positive identification. Call light in reach. bb 21:42 No provider procedures requiring assistance completed. Patient did not have IV access bb during this emergency room visit. 22:03 Jeannie Slade MD is Referral Physician. irene 22:03 Wilfredo Easley DDS is Referral Physician. [facility] Administered Medications: 22:08 Drug: KeFLEX (cephalexin) 500 mg Route: PO; bb 22:17 Follow up: Response: No adverse reaction bb Outcome: 22:04 Discharge ordered by . [facility] 22:18 Discharged to home ambulatory. bb 22:18 Condition: stable 22:18 Discharge instructions given to patient, Instructed on discharge instructions, follow up and referral plans. medication usage, Demonstrated understanding of instructions, follow-up care, medications, Prescriptions given X 1. 22:18 Patient left the ED. bb Signatures: Kyler Flores MD MD cha Salyer, Edna es Ballard, Brenda, RN RN Margarito Hay, RN RN da3
--- NOTE | 2021-03-27 22:07 | EDPHYS ---
Physician Documentation [facility] Name: Yessenia Aleman Age: 60 yrs Sex: Female : 1960 Arrival Date: 03/27/2021 Time: 20:35 Bed 9 Private MD: Jeannie Slade ED Physician Kyler Flores HPI: 03/27 21:58 This 60 yrs old Female presents to ER via Ambulatory with complaints of irene laceration under tongue. 21:58 The patient presents with swelling. The problem is located in the tongue. Onset: The irene symptoms/episode began/occurred 2 day(s) ago. Duration: The symptoms are continuous, and are steadily getting worse. Modifying factors: The symptoms are alleviated by nothing, the symptoms are aggravated by chewing, cold fluids, talking. Associated signs and symptoms: The patient has no apparent associated signs or symptoms. Severity of symptoms: At their worst the symptoms were mild, in the emergency department the symptoms are unchanged. The patient has not experienced similar symptoms in the past. Historical: - Allergies: 21:42 Codeine; bb - Immunization history:: Client reports receiving the 2nd dose of the Covid vaccine. - Social history:: Smoking status: Patient denies any tobacco usage or history of. - Family history:: not pertinent. ROS: 21:58 Constitutional: Negative for fever, chills, and weight loss, Eyes: Negative for injury, irene pain, redness, and discharge, Neck: Negative for injury, pain, and swelling, Cardiovascular: Negative for chest pain, palpitations, and edema, Respiratory: Negative for shortness of breath, cough, wheezing, and pleuritic chest pain, Abdomen/GI: Negative for abdominal pain, nausea, vomiting, diarrhea, and constipation, Back: Negative for injury and pain, : Negative for injury, bleeding, discharge, and swelling, MS/Extremity: Negative for injury and deformity, Skin: Negative for injury, rash, and discoloration, Neuro: Negative for headache, weakness, numbness, tingling, and seizure, Psych: Negative for depression, anxiety, suicide ideation, homicidal ideation, and hallucinations, Allergy/Immunology: Negative for hives, rash, and allergies, Endocrine: Negative for neck swelling, polydipsia, polyuria, polyphagia, and marked weight changes, Hematologic/Lymphatic: Negative for swollen nodes, abnormal bleeding, and unusual bruising. 21:58 ENT: Positive for sublingual laceration, abrasion. Exam: 21:58 Constitutional: This is a well developed, well nourished patient who is awake, alert, irene and in no acute distress. Head/Face: Normocephalic, atraumatic. Eyes: Pupils equal round and reactive to light, extra-ocular motions intact. Lids and lashes normal. Conjunctiva and sclera are non-icteric and not injected. Cornea within normal limits. Periorbital areas with no swelling, redness, or edema. Neck: Trachea midline, no thyromegaly or masses palpated, and no cervical lymphadenopathy. Supple, full range of motion without nuchal rigidity, or vertebral point tenderness. No Meningismus. Chest/axilla: Normal chest wall appearance and motion. Nontender with no deformity. No lesions are appreciated. Cardiovascular: Regular rate and rhythm with a normal S1 and S2. No gallops, murmurs, or rubs. Normal PMI, no JVD. No pulse deficits. Respiratory: Lungs have equal breath sounds bilaterally, clear to auscultation and percussion. No rales, rhonchi or wheezes noted. No increased work of breathing, no retractions or nasal flaring. Abdomen/GI: Soft, non-tender, with normal bowel sounds. No distension or tympany. No guarding or rebound. No evidence of tenderness throughout. Back: No spinal tenderness. No costovertebral tenderness. Full range of motion. Female : Normal external genitalia. Skin: Warm, dry with normal turgor. Normal color with no rashes, no lesions, and no evidence of cellulitis. MS/ Extremity: Pulses equal, no cyanosis. Neurovascular intact. Full, normal range of motion. Neuro: Awake and alert, GCS 15, oriented to person, place, time, and situation. Cranial nerves II-XII grossly intact. Motor strength 5/5 in all extremities. Sensory grossly intact. Cerebellar exam normal. Normal gait. Psych: Awake, alert, with orientation to person, place and time. Behavior, mood, and affect are within normal limits. 21:58 ENT: Mouth: Oral mucosa: moist, Gums: normal with healthy appearance, Tongue: is normal, abscess, is not appreciated, drooling, is not appreciated, frenulum laceration, swelling. Vital Signs: 20:56 BP 163 / 118; Pulse 85; Resp 22; Temp 98.0; Pulse Ox 99% on R/A; Weight 80.74 kg; da3 Height 5 ft. 0 in. (152.40 cm); 20:56 Body Mass Index 34.76 (80.74 kg, 152.40 cm) da3 MDM: 21:32 Patient medically screened. irene 22:02 Differential diagnosis: dental caries, gingivitis. Data reviewed: vital signs, nurses irene notes. Data interpreted: desk monitor: not applicable for this patient encounter. rate is 85 beats/min, rhythm is regular, Pulse oximetry: on room air is 99 %. Counseling: I had a detailed discussion with the patient and/or guardian regarding: the historical points, exam findings, and any diagnostic results supporting the discharge/admit diagnosis, lab results, radiology results, the need for outpatient follow up, for definitive care, a dentist, an oral maxilofacial specialist. Administered Medications: 22:08 Drug: KeFLEX (cephalexin) 500 mg Route: PO; bb 22:17 Follow up: Response: No adverse reaction Disposition Summary: 03/27/21 22:04 Discharge Ordered Location: Home irene Problem: new irene Symptoms: have improved irene Condition: Stable irene Diagnosis - Laceration without foreign body of oral cavity - frenulum laceration irene Followup: irene - With: Jeannie Slade MD - When: 2 - 3 days - Reason: Recheck today's complaints, Continuance of care, Re-evaluation by your physician Followup: irene - With: Wilfredo Easley DDS - When: 2 - 3 days - Reason: Recheck today's complaints, Re-evaluation by your physician Discharge Instructions: - Discharge Summary Sheet irene - Mouth Laceration irene - Mouth Laceration, Fkaf-db-[id number] irene Forms: - Medication Reconciliation Form irene - Thank You Letter irene - Antibiotic Education irene - Prescription Opioid Use irene Prescriptions: - Cephalexin 500 mg Oral Capsule - take 1 capsule by ORAL route every 8 hours for 7 days; 21 capsule; Refills: 0, irene Product Selection Permitted Signatures: Kyler Flores MD MD cha Ballard, Brenda, RN RN bb Margarito Dennison, RN RN da3
[2021-03-27] MEDS ORDERED: CEPHALEXIN 250 MG CAP ONE (22:10)
[2021-03-27 22:22] VITALS: BP 163/118; TEMP 98; O2SAT 99
== END 2021-03-27 22:18 | disposition home or self-care (01) ==
LOC: ER 20:33
DX: S01.512A Laceration without foreign body of oral cavity, initial encounter (principal); Z88.5 Allergy status to narcotic agent
CPT/HCPCS: 99283

== ENCOUNTER 2021-06-01 18:08 | Emergency (ER) | payer OTHER ==
--- OUTSIDE RECORDS SUMMARY | 2021-06-01 18:33 | XMS REPORT | Continuity of Care Document ---
:1960 Author Organization [facility] t Address [address] [place] [address] Care Team Providers Name Role Phone PREZAS Primary Care Physician Unavailable ANANYA, A Attending Clinician Unavailable Obdulia Slade Attending Clinician Unavailable Connie AVILEZ Attending Clinician Unavailable VERA, S Attending Clinician Unavailable ABBY PENNY Attending Clinician Unavailable NGUYỄN, LUIS ANTONIO Attending Clinician Unavailable ANIVALUM, L Attending Clinician Unavailable EBRAHIM Attending Clinician Unavailable Ebrahim BUFFING WHEEL INSPECTOR Attending Clinician Kelly RN, T Attending Clinician Unavailable Nurse, [facility] Attending Clinician Unavailable Green BUFFING WHEEL INSPECTOR Attending Clinician Doctor Unassigned, Name Attending Clinician Unavailable GREEN Attending Clinician Unavailable HAKEEM Attending Clinician Unavailable Vaccine, Db Uc Attending Clinician Unavailable Hakeem WEBSTER Attending Clinician Kaiden HAMMONDS Attending Clinician Unavailable Sonya HALL, Kaiden Attending Clinician WON FISHER Attending Clinician Unavailable Natalia WEBSTER, Won Attending Clinician Christopher Baez DO Attending Clinician Christopher BAEZ Attending Clinician Unavailable Karo KAN, A Attending Clinician Unavailable Wu WEBSTER, Obdulia Attending Clinician Zulema BUFFING WHEEL INSPECTOR, F Attending Clinician DARBYUNLE, F Attending Clinician Unavailable James WEBSTER Attending Clinician Urban WEBSTER Attending Clinician Bia Santo MD Attending Clinician Bia SANTO Attending Clinician Unavailable Eric ARREDONDO, R Attending Clinician ERIC R Attending Clinician Unavailable Bia MARSH Attending Clinician Unavailable Maxine Gamez MD Attending Clinician Sydnie Llamas Attending Clinician SYDNIE POLANCO Attending Clinician Unavailable Only, Test Attending Clinician [...] Singer CANALES Attending Clinician Attending Clinician Unavailable Chritsina WEBSTER, Obdulia Attending Clinician Monika ORTIZ, S Attending Clinician Luis KAN Attending Clinician Edwardo WEBSTER Attending Clinician Maxim WEBSTER Attending Clinician DANIEL Mai Attending Clinician Unavailable Haley Cox Attending Clinician Unavailable PROVIDER, TEMP Attending Clinician Unavailable RADU Attending Clinician Unavailable To Attending Clinician Unavailable KRIS Attending Clinician Unavailable Bia CASTILLO Attending Clinician Unavailable Chandan HARE Admitting Clinician Unavailable Connie AVILEZ Admitting Clinician Unavailable Maxine GAMEZ Admitting Clinician Unavailable ABBY PENNY Admitting Clinician Unavailable LUIS ANTONIO NGUYỄN Admitting Clinician Unavailable JAROCHO Admitting Clinician Unavailable Kaiden HAMMONDS Admitting Clinician Unavailable WON FISHER Admitting Clinician Unavailable Christopher BAEZ Admitting Clinician Unavailable Jodie POOLE Admitting Clinician Unavailable Urban WEBSTER Admitting Clinician URBAN Admitting Clinician Unavailable Maxine Gamez MD Admitting Clinician SYDNIE POLANCO Admitting Clinician Unavailable Diego Grigsby MD Admitting Clinician Maxine GRAYSON Admitting Clinician Unavailable Admitting Clinician Unavailable Maxim WEBSTER Admitting Clinician Haley Cox Admitting Clinician Unavailable Payers Payer Name Policy Type Policy Number Effective Date Expiration Date Maxine hammonds [employer] [id number] 2021spring 00:00:00 MEDICARE PART A [id number] 2015 \\T\\ B 00:00:00 [employer] [id number] 2018 00:00:00 MEDICARE A B [id number] 2015 00:00:00 [email or web address] [id number] 2018 HMO/POS/OPEN 00:00:00 ACCESS BCBS OS [id number] 2010 2020 POS/PPO/EPO 00:00:00 00:00:00 Advance Directives Directive Decision Effective Termination Comments Source Date Date Healthcare Agents on N/A [facility]NameReL[facility] [phone] (Mobile) Problems Condition Condition Condition Status Onset Resolution Last Treating Co mments Source Name Details Category Date Date Treatment Clinician Date 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 [place] Cerebrovas Cerebrovas Disease Active 2019- U nivers cular cular 0-22 ity of accident accident 00:00: [place] (CVA) due (CVA) due 00 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 Arthritis Arthritis Disease Active 2019-04 Uni vers 0-21 ity of 00:00: [place] [facility] Toxic Toxic Disease Active 2019-04 Univers metabolic metabolic 0-20 ity of encephalop encephalop [place] at[place] 00 [facility] Altered Altered Disease Active 2019-04 Univers mental mental 0-18 ity of status status 00:00: [place] [facility] Abdominal Abdominal Disease Active 2019- Uni vers pain pain 8-03 ity of 00:00: [place] 00 Medical Branch Peripheral Peripheral Disease Active 2019-0 U nivers nerve nerve 7-10 ity of disease disease 00:00: [place] 00 Medical Branch Choledocho Choledocho Disease Active 2018-0 U nivers lithiasis lithiasis 7-20 ity of 00:00: [place] 00 Medical Branch Constipati Constipati Disease Active 2018-0 U nivers on on 7-18 ity of 00:00: [place] 00 Medical Branch Acute Acute Disease Active 2018-0 Univers appendicit appendicit 6-10 it y of is is 00:00: [place] 00 Medical Branch Transamini Transamini Disease Active 2017-0 U nivers tis tis 8-17 ity of 00:00: [place] 00 Medical Branch Acute Acute Disease Active 2017-0 Univers cystitis cystitis 8-15 ity of without without 00:00: [place] hematuria hematuria 00 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 8-15 it y of vomiting vomiting 00:00: [place] with with 00 Medical nausea nausea Branch Intractabl Intractabl Disease Active U nivers e e 8-15 ity of epigastric epigastric 00:00[place] abdominal abdominal 00 Medi brandy pain pain Branch Obesity Obesity Disease Active 2015-04 Univers (BMI (BMI 1-17 ity of 30-39.9) 30-39.9) 00:00: [place] 00 Medical Branch Chronic Chronic Disease Active Univers pain pain 7-27 ity of disorder disorder 00:00: [place] [facility] Hypokalemi Hypokalemi Disease Active U nivers a a 7-27 ity of 00:00: [place] 00 Medical Branch Hypokalemi Hypokalemi Disease Active U nivers c periodic c periodic 7-27 [...] it y of is is 00:00: [place] 00 Medical Branch Alcohol Alcohol Disease Active 2012-04 [...] ents Source Name Type Date Date Clinician Nathan Stein Active Itching 2014-04 Univer s ty to 0-31 ity of adverse 00:00: [place] reaction 00 Medical s Branch Codeine Propensi Active Rash 2012-04 Univers ty to 0-30 ity of adverse 00:00: [place] reaction Medical s Branch CODEINE DRUG Active High ITCHING 2012-04 Univers INGREDI 0-30 ity of 00:00: [place] 00 Medical Branch CODEINE Allergy Active High Rash 2012-04 SLEH 0-30 00:00: 00 NO KNOWN Drug Active Univers ALLERGIE Class ity of S [place] [facility] Social History Social Habit Start Date Stop Date Quantity Comments Source History [facility] University o f Alcohol Std [place] [facility] Drinks Branch History [facility] University o f Alcohol Binge [place] [facility] Exposure to Yes University of SARS-CoV-2 [place] [facility] (event) Branch History [facility] University o f Alcohol Comment [place] [facility] Alcohol intake 2021-05-21 2021-05-21 Lifetime University of 00:00:00 00:00:00 non-drinker [place] [facility] (finding) Branch Tobacco use and 2018-11-15 2018-11-15 Never used Universit y of exposure 00:00:00 00:00:00 [place] [facility] History [facility] 2018-11-15 2018-11-15 1 University o f Alcohol Frequency 00:00:00 00:00:00 [facility] [place] edical Branch History [facility] 2018-11-15 2018-11-15 3 University o f Financial 00:00:00 00:00:00 [place] [facility] History [facility] Food 2018-11-15 2018-11-15 1 Univers ity of Worry 00:00:00 00:00:00 [place] [facility] History [facility] Food 2018-11-15 2018-11-15 1 Univers ity of Scarcity 00:00:00 00:00:00 [place] [facility] History [facility] 2018-11-15 2018-11-15 2 University o f Transport Med 00:00:00 00:00:00 [place] [facility] al Branch History [facility] 2018-11-15 2018-11-15 2 University o f Transport Non-Med 00:00:00 00:00:00 [facility] [place] edical Branch Sex [birth year] Universit y of 00:00:00 00:00:00 [place] [facility] Smoking Status Start Date Stop Date Source Never smoker [facility] Medical Branch Medications Ordered Filled Start Stop Current Ordering Indication Dosage Frequency Signature Comments Components Source Medication Medication Date Date Medication? Clinician (SIG) Name Name morpHINE 2021- No 4mg 4 mg, Slow Un you injection 4 05-22 IV Push, ity of mg 07:30: 06:35 ONCE, 1 [place] 00 :00 dose, On Medical 05/22/21 Branch at 0130, STAT ondansetron 2021- No 4mg 4 mg, Slow Univers (ZOFRAN 05-22 IV Push, ity of (PF)) 07:30: 06:35 ONCE, 1 [place] injection 4 00 :00 dose, On Medi brandy mg 05/22/21 Branch at 0130, [place] iohexol 2021- No [id number] 100mL 100 mL, Univers (OMNIPAQUE 05-22 Intravenou it y of 350 06:15: 06:04 s, ONCE, 1 [place] BULK-100 00 :00 dose, On Medical mL) [facility] 05/22/21 Branch injection at 0015, 100 mL Routine traZODone Yes 100mg Take 100 Uni vers 100 mg 2-06 mg by ity of tablet 23:27: mouth at [place] 53 bedtime. Medical Branch gabapentin Yes 300mg Take 300 Un you 300 mg 2-06 mg by ity of capsule 23:27: mouth 2 [place] 26 (two) Medical times Branch daily. erythromyci 2021- No erythromyc Univers n 5 mg/gram 05-21-06 in 5 ity of (0.5 %) 23:26: 00:00 mg/gram [place] ophthalmic 39 :00 (0.5 %) Medica l ointment eye Branch ointment diazePAM 2 2021- No 2mg Take 2 mg U nivers mg tablet 05-21-06 by mouth. ity of 23:26: 00:00 [place] 15 :00 Medical Branch losartan 2021-0 Yes 100mg Take 100 Univ ers 100 mg 2-03 mg by ity of tablet 09:16: mouth [place] 01 daily. Medical Branch gabapentin Yes 300mg Take 300 Un you 300 mg 2-03 mg by ity of capsule 09:16: mouth 2 [place] 01 (two) Medical times Branch daily. diazePAM 2 0 Yes 2mg Take 2 mg Un you mg tablet 2-03 by mouth. ity o f 09:16: Medical Branch erythromyci Yes erythromyc Univers n 5 mg/gram 2-03 in 5 ity of (0.5 %) 09:16: mg/gram [place] ophthalmic 01 (0.5 %) Medica l ointment eye Branch ointment losartan Yes 100mg Take 100 Univ ers 100 mg 2-03 mg by ity of tablet 09:16: mouth [place] 01 daily. Medical Branch gabapentin 0 Yes 300mg Take 300 Un you 300 mg 2-03 mg by ity of capsule 09:16: mouth 2 (two) Medical times Branch daily. diazePAM 2 Yes 2mg Take 2 mg Un you mg tablet 2-03 by mouth. ity o f 09:16: Medical Branch erythromyci Yes erythromyc Univers n 5 mg/gram 2-03 in 5 ity of (0.5 %) 09:16: mg/gram [place] ophthalmic 01 (0.5 %) Medica l ointment eye Branch ointment losartan Yes 100mg Take 100 Univ ers 100 mg 2-03 mg by ity of tablet 09:16: mouth [place] daily. Medical Branch gabapentin Yes 300mg Take 300 Un you 300 mg 2-03 mg by ity of capsule 09:16: mouth (two) Medical times Branch daily. diazePAM 2 Yes 2mg Take 2 mg Un you mg tablet 2-03 by mouth. ity o f 09:16: Medical Branch erythromyci Yes erythromyc Univers n 5 mg/gram 2-03 in 5 ity of (0.5 %) 09:16: mg/gram [place] ophthalmic 01 (0.5 %) Medica l ointment eye Branch ointment losartan 0 Yes 100mg Take 100 Univ ers 100 mg 2-03 mg by ity of tablet 09:16: mouth [place] 01 daily. Medical Branch montelukast 0 2021- Yes [id number] 10mg Take 1 Univers (SINGULAIR) 2-03 03-06 tablet by it y of 10 mg 00:00: 05:59 mouth [place] tablet 00 :00 daily for Medical 30 days. Branch montelukast 2021- Yes [id number] 10mg Take 1 Univers (SINGULAIR) 2-06 tablet by it y of 10 mg 00:00: 05:59 mouth [place] tablet 00 :00 daily for Medical 30 days. Branch montelukast 2021- Yes [id number] 10mg Take 1 Univers (SINGULAIR) 2-06 tablet by it y of 10 mg 00:00: 05:59 mouth [place] tablet 00 :00 daily for Medical 30 days. Branch benzonatate 2021- Yes [id number] 200mg Take 2 Univers (TESSALON 2-06 14-14 capsules ity o f PERLES) 100 00:00: 05:59 [place] mouth [place] mg capsule 00 :00 every 8 Medica l (eight) Branch hours for 10 days. benzonatate 2021- Yes [id number] 200mg Take 2 Univers (TESSALON 2-06 14-14 capsules ity o f PERLES) 100 00:00: 05:59 by mouth [place] mg capsule 00 :00 every 8 Medica l (eight) Branch hours for 10 days. benzonatate 2021- Yes [id number] 200mg Take 2 Univers (TESSALON 2-06 14-14 capsules ity o f PERLES) 100 00:00: 05:59 by mouth [place] mg capsule 00 :00 every 8 Medica l (eight) Branch hours for 10 days. benzonatate 2021- No [id number] 200mg Take 2 Univers (TESSALON 2-06 14-06 capsules ity o f PERLES) 100 00:00: 00:00 by mouth [place] mg capsule 00 :00 every 8 Medica l (eight) Branch hours for 10 days. montelukast 2021- No [id number] 10mg Take 1 Univers (SINGULAIR) 05-18- tablet by it y of 10 mg 00:00: 00:00 mouth [place] tablet 00 :00 daily for Medical 30 days. Branch traZODone Yes 100mg Take 100 Uni vers 100 mg 1-03 mg by ity of tablet 10:57: mouth at [place] 34 bedtime. Medical Branch losartan Yes 100mg Take 100 Univ ers 100 mg 1-03 mg by ity of tablet 10:57: mouth [place] [address] daily. Medical Branch gabapentin Yes 300mg Take 300 Un you 300 mg 1-03 mg by ity of capsule 10:57: mouth 2 [place] 34 (two) Medical times Branch daily. diazePAM 2 Yes 2mg Take 2 mg Un you mg tablet 1-03 by mouth. ity o f 10:57: [place] 34 Medical Branch erythromyci Yes erythromyc Univers n 5 mg/gram 1-03 in 5 ity of (0.5 %) 10:57: mg/gram [place] ophthalmic 34 (0.5 %) Medica l ointment eye Branch ointment traZODone Yes 100mg Take 100 Uni vers 100 mg 1-03 mg by ity of tablet 10:57: mouth at [place] [address] bedtime. Medical Branch traZODone Yes 100mg Take 100 Uni vers 100 mg 1-03 mg by ity of tablet 10:57: mouth at [place] [address] bedtime. Medical Branch traZODone Yes 100mg Take 100 Uni vers 100 mg 1-03 mg by ity of tablet 10:57: mouth at [place] [address] bedtime. Medical Branch maalox:diph 2021- No 15mL 15 mL, Uni vers enhydrAMINE 04-15 Oral, ity of :lidocaine 20:45: 20:38 ONCE, 1 [place] 2 % viscous 00 :00 dose, On Medi brandy 1:1:1 04/15/21 Branch (FIRST-MOUT at 1445, HWASH BLM) Routine oral suspension 15 mL famotidine 2021- No 40mg 40 mg, Univ ers (PEPCID 04-15 Slow IV ity of (PF)) 20:45: 20:39 Push, [place] injection 00 :00 ONCE, 1 Medical 40 mg dose, On Branch 04/15/21 at 1445, [place] ondansetron 2021- No 4mg 4 mg, Slow Univers (ZOFRAN 04-15 IV Push, ity of (PF)) 20:45: 20:37 ONCE, 1 [place] injection 4 00 :00 dose, On Medi brandy mg 04/15/21 Branch at 1445, [place] NaCl 0.9% 2021- No 1000mL at 999 Uni vers (NS) bolus 04-15 mL/hr, ity of infusion 20:45: 21:38 1,000 mL, [place] 1,000 mL 00 :00 IV Medical Infusion, Branch ONCE, 1 dose, On 04/15/21 at 1445, [place] iopamidol 2021- No [id number] 120mL 120 mL, Univers (ISOVUE 04-15 Intravenou ity o f 370-500 mL) 20:13: 20:14 s, ONCE, 1 [place] injection 00 :00 dose, On Medica l 120 mL 04/15/21 Branch at 1430, Routine famotidine 2021- Yes [id number] 40mg Take 2 Univers (PEPCID) 20 04-15 tablets by i ty of mg tablet 00:00: 05:59 mouth 2 [place] 00 :[place] (two) Medical times Branch daily for 15 days. proMETHazin 2021- Yes [id number] 25mg Take 1 Univers e 25 mg 04-15 tablet by ity of tablet 00:00: 05:59 mouth [place] 00 :00 every 6 Medical (six) Branch hours for 7 days. FENTanyl PF 2020-04- No 50ug 50 mcg, Un you (SUBLIMAZE 05-27- Slow IV ity o f (PF)) 03:45: 02:50 Push, [place] injection 00 :00 ONCE, 1 Medical 50 mcg dose, On Branch 03/25/21 at 2145, STAT hydralAZINE 2020-04- No 10mg 10 mg, Uni vers (APRESOLINE 05-27 12-12 Slow IV ity of ) injection 03:30: 02:51 [place], [place] 10 mg 00 :00 ONCE, 1 Medical dose, On Branch 03/25/21 at 2130, [place]
In dication: Hypertensi ve Emergency dicyclomine 2020-04 Yes [id number] 20mg 20 mg, Univers (BENTYL) 2-12 Intramuscu ity o f injection 02:00: lar, QID, [place] 20 mg 00 First dose Medical on Sat Branch 03/25/21 at 2000, Until Discontinu ed, Routine iopamidol 2020-04- No [id number] 120mL 120 mL, Univers (ISOVUE 05-27 Intravenou ity o f 370-500 mL) 01:58: 01:58 s, ONCE, 1 [place] injection 00 :00 dose, On Medica l 120 mL Sat Branch 03/25/21 at 2015, Routine NaCl 0.9% 2020-04- No [id number] 1000mL at 999 Univers (NS) bolus 05-27 mL/hr, ity of infusion 01:30: 03:00 1,000 mL, [place] 1,000 mL 00 :00 IV Medical Infusion, Branch ONCE, 1 dose, On 03/25/21 at 1930, [place] ondansetron 2020-04- No [id number] 4mg 4 mg, Slow Univers (ZOFRAN 05-27 IV Push, ity of (PF)) 01:30: 01:48 ONCE, 1 [place] injection 4 00 :00 dose, On Medi brandy mg Sat Branch 03/25/21 at 1930, [place] famotidine 2020-04- No [id number] 20mg 20 mg, Univers (PEPCID 05-27 Slow IV ity of (PF)) 01:30: 01:48 Push, [place] injection 00 :00 ONCE, 1 Medical 20 mg dose, On Branch 03/25/21 at 1930, [place] ketorolac 2020-04- No [id number] 30mg 30 mg, U nivers (TORADOL) 05-27 Slow IV ity of injection 01:30: 01:49 Push, [place] 30 mg 00 :00 ONCE, 1 Medical dose, On Branch 03/25/21 at 1930, [place] FENTanyl PF 2020-04- No [id number] 75ug 75 mcg, Univers (SUBLIMAZE 05-27 Slow IV ity o f (PF)) 01:30: 01:48 Push, [place] injection 00 :00 ONCE, 1 Medical 75 mcg dose, On Branch 03/25/21 at 1930, STAT famotidine 2020-04 No 20mg 20 mg, Univ ers (PEPCID AC) 05-22 Oral, ity of tablet 20 02:00: 01:13 ONCE, 1 [place] mg 00 :00 dose, On Medical Mon Ramer 03/20/21 at 2000, [place] FENTanyl PF 2020-04 No 25ug 25 mcg, Un you (SUBLIMAZE 05-22 Slow IV ity o f (PF)) 02:00: 01:13 Push, [place] injection 00 :00 ONCE, 1 Medical 25 mcg dose, On Branch [facility] 03/20/21 at 2000, STAT diphenhydrA 2020-04 No 12.5mg 12.5 mg, Univers MINE 05-22 Slow IV ity of (BENADRYL) 02:00: 01:13 Push, [place] injection 00 :00 ONCE, 1 Medical 12.5 mg dose, On Branch [facility] 03/20/21 at 2000, STAT metoclopram 2020-04 No 10mg 10 mg, Uni vers selena HCl 05-22 Slow IV ity of (REGLAN) 02:00: 01:13 Push, [place] injection 00 :00 ONCE, 1 Medical 10 mg dose, On Branch [facility] 03/20/21 at 1999, [place] FENTanyl PF 2020-04 No 75ug 75 mcg, Un you (SUBLIMAZE 05-21 Slow IV ity o f (PF)) 23:30: 22:45 Push, [place] injection 00 :00 ONCE, 1 Medical 75 mcg dose, On Branch [facility] 03/20/21 at 1730, Routine ketorolac 2020-04 No 30mg 30 mg, Unive rs (TORADOL) 05-21 Slow IV ity of injection 23:30: 22:44 Push, [place] 30 mg 00 :00 ONCE, 1 Medical dose, On Branch [facility] 03/20/21 at 1730, Routine
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 Restricted medication : MEKA HAMMONDS ondansetron 2020-04- No 4mg 4 mg, Slow Univers (ZOFRAN 05-21 IV Push, ity of (PF)) 23:30: 22:44 ONCE, 1 [place] injection 4 00 :00 dose, On Medi brandy mg [facility] 03/20/21 at 1730, [place] dicyclomine 2020-04 No 20mg 20 mg, Uni vers (BENTYL) 05-21 Intramuscu ity of injection 23:30: 23:15 lar, ONCE, [place] 20 mg 00 :00 1 dose, On Medical Mon Branch 03/20/21 at 1730, Routine iopamidol 2020-04 No 100mL 100 mL, Uni vers (ISOVUE 05-21 Intravenou ity o f 370-500 mL) 22:50: 23:15 s, ONCE, 1 [place] injection 00 :00 dose, On Medica l 100 mL [facility] Branch 03/20/21 at 1715, Routine ondansetron 2020-04 ondansetro Univers 4 mg tablet 05-21 n HCl 4 mg i ty of 18:55: 00:00 tablet [place] 24 :00 Medical Branch metoclopram 2020-04 Yes [id number] 10mg Take 1 Univers selena HCl 10 2-06 tablet by ity of mg tablet 00:00: mouth [place] 00 every 6 Medical (six) Branch hours as needed for Nausea and Vomiting (N/V). dicyclomine 2020-04 Yes [id number] 20mg Take 1 Univers 20 mg 2-06 tablet by ity of tablet 00:00: mouth 4 [place] 00 (four) Medical times Branch daily. metoclopram 2020-04 Yes [id number] 10mg Take 1 Univers selena HCl 10 2-06 tablet by ity of mg tablet 00:00: mouth [place] 00 every 6 Medical (six) Branch hours as needed for Nausea and Vomiting (N/V). dicyclomine 2020-04 Yes [id number] 20mg Take 1 Univers 20 mg 2-06 tablet by ity of tablet 00:00: mouth 4 [place] 00 (four) Medical times Branch daily. metoclopram 2020-04 Yes [id number] 10mg Take 1 Univers selena HCl 10 2-06 tablet by ity of mg tablet 00:00: mouth [place] 00 every 6 Medical (six) Branch hours as needed for Nausea and Vomiting (N/V). dicyclomine 2020-04 Yes [id number] 20mg Take 1 Univers 20 mg 2-06 tablet by ity of tablet 00:00: mouth 4 (four) Medical times Branch daily. metoclopram 2020-04 Yes [id number] 10mg Take 1 Univers selena HCl 10 2-06 tablet by ity of mg tablet 00:00: mouth [place] 00 every 6 Medical (six) Branch hours as needed for Nausea and Vomiting (N/V). dicyclomine 2020-04 Yes [id number] 20mg Take 1 Univers 20 mg 2-06 tablet by ity of tablet 00:00: mouth (four) Medical times Branch daily. metoclopram 2020-04 Yes [id number] 10mg Take 1 Univers selena HCl 10 2-06 tablet by ity of mg tablet 00:00: mouth [place] 00 every 6 Medical (six) Branch hours as needed for Nausea and Vomiting (N/V). dicyclomine 2020-04 Yes [id number] 20mg Take 1 Univers 20 mg 2-06 tablet by ity of tablet 00:00: mouth [place] (four) Medical times Branch daily. metoclopram 2020-04 Yes [id number] 10mg Take 1 Univers selena HCl 10 2-06 tablet by ity of mg tablet 00:00: mouth [place] 00 every 6 Medical (six) Branch hours as needed for Nausea and Vomiting (N/V). dicyclomine 2020-04 Yes [id number] 20mg Take 1 Univers 20 mg 2-06 tablet by ity of tablet 00:00: mouth (four) Medical times Branch daily. metoclopram 2020-04 Yes [id number] 10mg Take 1 Univers selena HCl 10 2-06 tablet by ity of mg tablet 00:00: mouth [place] 00 every 6 Medical (six) Branch hours as needed for Nausea and Vomiting (N/V). dicyclomine 2020-04 Yes [id number] 20mg Take 1 Univers 20 mg 2-06 tablet by ity of tablet 00:00: mouth [place] (four) Medical times Branch daily. metoclopram 2020-04 Yes [id number] 10mg Take 1 Univers selena HCl 10 2-06 tablet by ity of mg tablet 00:00: mouth [place] 00 every 6 Medical (six) Branch hours as needed for Nausea and Vomiting (N/V). dicyclomine 2020-04 Yes [id number] 20mg Take 1 Univers 20 mg 2-06 tablet by ity of tablet 00:00: mouth 4 [place] 00 (four) Medical times Branch daily. metoclopram 2020-04 Yes [id number] 10mg Take 1 Univers selena HCl 10 2-06 tablet by ity of mg tablet 00:00: mouth [place] 00 every 6 Medical (six) Branch hours as needed for Nausea and Vomiting (N/V). dicyclomine 2020-04 Yes [id number] 20mg Take 1 Univers 20 mg 2-06 tablet by ity of tablet 00:00: mouth 4 [place] 00 (four) Medical times Branch daily. metoclopram 2020-04- No [id number] 10mg Take 1 Univers selena HCl 10 2-06 02-06 tablet by ity of mg tablet 00:00: 00:00 mouth [place] 00 :00 every 6 Medical (six) Branch hours as needed for Nausea and Vomiting (N/V). dicyclomine 2020-04- No [id number] 20mg Take 1 Univers 20 mg 2-06 02-06 tablet by ity of tablet 00:00: 00:00 mouth 4 [place] 00 :00 (four) Medical times Branch daily. famotidine 2020-04- Yes [id number] 20mg Take 1 Univers 20 mg 2-06 12-17 tablet by ity of tablet 00:00: 05:59 mouth at [place] 00 :00 bedtime Medical for 10 Branch days. famotidine 2020-04- Yes [id number] 20mg Take 1 Univers 20 mg 2-06 12-17 tablet by ity of tablet 00:00: 05:59 mouth at [place] 00 :00 bedtime Medical for 10 Branch days. famotidine 2020-04- Yes [id number] 20mg Take 1 Univers 20 mg 2-06 12-17 tablet by ity of tablet 00:00: 05:59 mouth at [place] 00 :00 bedtime Medical for 10 Branch days. ketorolac 2020-04- No 30mg 30 mg, Unive rs (TORADOL) 04-15 Slow IV ity of injection 02:15: 01:11 Push, [place] 30 mg 00 :00 ONCE, 1 Medical dose, On Branch 02/12/21 at 2115, Routine
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 Restricted medication : ERASMO GRAYSON proMETHazin 2020-04- No 25mg 25 mg, IV Univers e 04-15 Piggyback, ity of (PHENERGAN) 02:15: 01:12 ONCE, 1 [place] 25 mg in 00 :00 dose, On Medical NaCl 0.9% [place] Branch (NS) 50 mL 02/12/21 piggyback at 2115, 50 mL iopamidol 2020-04- No [id number] 120mL 120 mL, Univers (ISOVUE 02-12 Intravenou ity o f 370-500 mL) 23:30: 22:13 s, ONCE, 1 [place] injection 00 :00 dose, On Medica l 120 mL [facility] 02/12/21 at 1830, Routine morpHINE 2020-04- No 4mg 4 mg, Slow Un you injection 4 02-12 IV Push, ity of mg 23:15: 22:23 ONCE, 1 [place] 00 :00 dose, On Medical [facility] 02/12/21 at 1815, STAT famotidine 2020-04 No 20mg 20 mg, Univ ers (PEPCID 002-12 Slow IV ity of (PF)) 21:30: 20:28 Push, [place] injection 00 :00 ONCE, 1 Medical 20 mg dose, On Branch [place] 02/12/21 at 1630, [place] NaCl 0.9% 2020-04- No 1000mL at 999 Uni vers (NS) bolus 0-31 mL/hr, ity of infusion 21:30: 21:30 1,000 mL, [place] as 1,000 mL 00 :00 IV Medical Infusion, Branch ONCE, 1 dose, On [place] 02/12/21 at 1630, [place] ondansetron 2020-04- No 8mg 8 mg, Slow Univers (ZOFRAN 02-12 IV Push, ity of (PF)) 21:30: 20:23 ONCE, 1 [place] injection 8 00 :00 dose, On Medi brandy mg [facility] 02/12/21 at 1630, [place] ketorolac 2020-04- No 30mg 30 mg, Unive rs (TORADOL) 002-12 Slow IV ity of injection 21:30: 20:23 Push, [place] 30 mg 00 :00 ONCE, 1 Medical dose, On Branch 02/12/21 at 1630, [place]
[facility] medication : ROSALINDA FISHER morpHINE 2020-04 No 4mg 4 mg, Slow Un you injection 4 0-31 10-31 IV Push, ity of mg 21:30: 20:23 ONCE, 1 [place] 00 :00 dose, On Medical [place] Branch 02/12/21 at 1630, STAT ondansetron 2020-04 Yes [id number] 8mg Take 1 Univers 8 mg tablet 0-31 tablet by ity of 00:00: mouth [place] 00 every 8 Medical (eight) Branch hours as needed for Nausea and Vomiting (N/V). ondansetron 2020-04 No [id number] 8mg Take 1 Univers 8 mg tablet 0-31 12-06 tablet by it y of 00:00: 00:00 mouth [place] 00 :00 every 8 Medical (eight) Branch hours as needed for Nausea and Vomiting (N/V). morpHINE 2020-04 No 4mg 4 mg, Slow Un you injection 4 0-06 10-06 IV Push, ity of mg 07:00: 05:56 ONCE, 1 [place] 00 :00 dose, On Medical Wed Branch 01/18/21 at 0200, STAT famotidine 2020-04 No 20mg 20 mg, Univ ers (PEPCID 0-06 10-06 Slow IV ity of (PF)) 06:00: 05:08 Push, [place] injection 00 :00 ONCE, 1 Medical 20 mg dose, On Branch [facility] 01/18/21 at 0100, Routine maalox:diph 2020-04 No 15mL 15 mL, Uni vers enhydrAMINE 0-06 10-06 Oral, ity of :lidocaine 06:00: 05:08 ONCE, 1 [place] 2 % viscous 00 :00 dose, On [facility] brandy 1:1:1 Wed Branch ([facility] 01/18/21 at [facility]) 0100, oral Routine suspension 15 mL dicyclomine 2020-04 No 20mg 20 mg, Uni vers (BENTYL) 0-06 10-06 Oral, ity of tablet 20 06:00: 05:08 ONCE, 1 [place] mg 00 :00 dose, On Medical [facility] Branch 01/18/21 at 0100, Routine iopamidol 2020-04- No [id number] 120mL 120 mL, Univers (ISOVUE 001-18 Intravenou ity o f 370-500 mL) 04:45: 03:33 s, ONCE, 1 [place] injection 00 :00 dose, On Medica l 120 mL [facility] 01/17/21 at 2345, Routine morpHINE 2020-04 No 4mg 4 mg, Slow Un you injection 4 001-18 IV Push, ity of mg 03:45: 02:58 ONCE, 1 [place] 00 :00 dose, On Medical [facility] 01/17/21 at 2245, STAT ondansetron 2020-04 No 4mg 4 mg, Slow Univers (ZOFRAN 001-18 IV Push, ity of (PF)) 03:45: 02:59 ONCE, 1 [place] injection 4 00 :00 dose, On Medi brandy mg [facility] 01/17/21 at 2245, [place] NaCl 0.9% 2020-04 No 1000mL at 999 Uni vers (NS) bolus 001-18 mL/hr, ity of infusion 03:45: 06:13 1,000 mL, [place] 1,000 mL 00 :00 IV [facility] Branch ONCE, 1 dose, On [facility] 01/17/21 at 2245, STAT diazePAM 2 Yes 2mg Take 2 mg Un you mg tablet 9-25 by mouth. ity o f 11:25: [address] erythromyci Yes erythromyc Univers n 5 mg/gram 9-25 in 5 ity of (0.5 %) 11:25: mg/gram [place] ophthalmic 57 (0.5 %) Medica l ointment eye Branch ointment ondansetron Yes ondansetro Univers 4 mg tablet 9-25 n HCl 4 mg it y of 11:25: tablet [address] diazePAM 2 Yes 2mg Take 2 mg Un you mg tablet 9-25 by mouth. ity o f 11:25: [address] erythromyci Yes erythromyc Univers n 5 mg/gram 9-25 in 5 ity of (0.5 %) 11:25: mg/gram [place] ophthalmic 57 (0.5 %) Medica l ointment eye Branch ointment ondansetron Yes ondansetro Univers 4 mg tablet 9-25 n HCl 4 mg it y of 11:25: tablet [place] [address] Medical Branch diazePAM 2 Yes 2mg Take 2 mg Un you mg tablet 9-25 by mouth. ity o f 11:25: [place] [address] Medical Branch erythromyci Yes erythromyc Univers n 5 mg/gram 9-25 in 5 ity of (0.5 %) 11:25: mg/gram [place] ophthalmic 57 (0.5 %) Medica l ointment eye Branch ointment ondansetron Yes ondansetro Univers 4 mg tablet 9-25 n HCl 4 mg it y of 11:25: tablet [place] [address] Medical Branch diazePAM 2 Yes 2mg Take 2 mg Un you mg tablet 9-25 by mouth. ity o f 11:25: [place] [address] Medical Branch erythromyci Yes erythromyc Univers n 5 mg/gram 9-25 in 5 ity of (0.5 %) 11:25: mg/gram [place] ophthalmic 57 (0.5 %) Medica l ointment eye Branch ointment ondansetron Yes ondansetro Univers 4 mg tablet 9-25 n HCl 4 mg it y of 11:25: tablet [place] [address] Medical Branch diazePAM 2 Yes 2mg Take 2 mg Un you mg tablet 9-25 by mouth. ity o f 11:25: [place] [address] Medical Branch erythromyci Yes erythromyc Univers n 5 mg/gram 9-25 in 5 ity of (0.5 %) 11:25: mg/gram [place] ophthalmic 57 (0.5 %) Medica l ointment eye Branch ointment ondansetron Yes ondansetro Univers 4 mg tablet 9-25 n HCl 4 mg it y of 11:25: tablet [place] [address] Medical Branch diazePAM 2 Yes 2mg Take 2 mg Un you mg tablet 9-25 by mouth. ity o f 11:25: [address] erythromyc Univers n 5 mg/gram 9-25 in 5 ity of (0.5 %) 11:25: mg/gram [place] ophthalmic 57 (0.5 %) Medica l ointment eye Branch ointment ondansetron Yes ondansetro Univers 4 mg tablet 9-25 n HCl 4 mg it y of 11:25: tablet [place] [address] Medical Branch diazePAM 2 Yes 2mg Take 2 mg Un you mg tablet 9-25 by mouth. ity o f 11:25: [address] erythromyc Univers n 5 mg/gram 9-25 in 5 ity of (0.5 %) 11:25: mg/gram [place] ophthalmic 57 (0.5 %) Medica l ointment eye Branch ointment diazePAM 2 Yes 2mg Take 2 mg Un you mg tablet 9-25 by mouth. ity o f 11:25: [address] Yes erythromyc Univers n 5 mg/gram 9-25 in 5 ity of (0.5 %) 11:25: mg/gram [place] ophthalmic 57 (0.5 %) Medica l ointment eye Branch ointment diazePAM 2 Yes 2mg Take 2 mg Un you mg tablet 9-25 by mouth. ity o f 11:25: [address] Yes erythromyc Univers n 5 mg/gram 9-25 in 5 ity of (0.5 %) 11:25: mg/gram [place] ophthalmic 57 (0.5 %) Medica l ointment eye Branch ointment diazePAM 2 Yes 2mg Take 2 mg Un you mg tablet 9-25 by mouth. ity o f 11:25: [address] erythromyc Univers n 5 mg/gram 9-25 in 5 ity of (0.5 %) 11:25: mg/gram [place] ophthalmic 57 (0.5 %) Medica l ointment eye Branch ointment diazePAM 2 Yes 2mg Take 2 mg Un you mg tablet 9-25 by mouth. ity o f 11:25: [address] erythromyci Yes erythromyc Univers n 5 mg/gram 9-25 in 5 ity of (0.5 %) 11:25: mg/gram [place] ophthalmic 57 (0.5 %) Medica l ointment eye Branch ointment albuterol Yes [id number] 2{puff} Inhale 2 Univers 90 9-25 Puffs ity of mcg/actuati 00:00: every 6 [place] on inhaler 00 (six) Medical hours as Branch needed for Wheezing or Shortness of Breath. albuterol Yes [id number] 2{puff} Inhale 2 Univers 90 9-25 Puffs ity of mcg/actuati 00:00: every 6 [place] as on inhaler 00 (six) Medical hours as Branch needed for Wheezing or Shortness of Breath. albuterol Yes [id number] 2{puff} Inhale 2 Univers 90 9-25 Puffs ity of mcg/actuati 00:00: every 6 [place] as on inhaler 00 (six) Medical hours as Branch needed for Wheezing or Shortness of Breath. albuterol Yes [id number] 2{puff} Inhale 2 Univers 90 9-25 Puffs ity of mcg/actuati 00:00: every 6 [place] as on inhaler 00 (six) Medical hours as Branch needed for Wheezing or Shortness of Breath. albuterol Yes [id number] 2{puff} Inhale 2 Univers 90 9-25 Puffs ity of mcg/actuati 00:00: every 6 [place] as on inhaler 00 (six) Medical hours as Branch needed for Wheezing or Shortness of Breath. albuterol Yes [id number] 2{puff} Inhale 2 Univers 90 9-25 Puffs ity of mcg/actuati 00:00: every 6 [place] as on inhaler 00 (six) Medical hours as Branch needed for Wheezing or Shortness of Breath. albuterol Yes [id number] 2{puff} Inhale 2 Univers 90 9-25 Puffs ity of mcg/actuati 00:00: every 6 [place] as on inhaler 00 (six) Medical hours as Branch needed for Wheezing or Shortness of Breath. albuterol Yes [id number] 2{puff} Inhale 2 Univers 90 9-25 Puffs ity of mcg/actuati 00:00: every 6 [place] as on inhaler 00 (six) Medical hours as Branch needed for Wheezing or Shortness of Breath. albuterol Yes [id number] 2{puff} Inhale 2 Univers 90 9-25 Puffs ity of mcg/actuati 00:00: every 6 [place] as on inhaler 00 (six) Medical hours as Branch needed for Wheezing or Shortness of Breath. albuterol Yes [id number] 2{puff} Inhale 2 Univers 90 9-25 Puffs ity of mcg/actuati 00:00: every 6 [place] as on inhaler 00 (six) Medical hours as Branch needed for Wheezing or Shortness of Breath. albuterol Yes [id number] 2{puff} Inhale 2 Univers 90 9-25 Puffs ity of mcg/actuati 00:00: every 6 [place] as on inhaler 00 (six) Medical hours as Branch needed for Wheezing or Shortness of Breath. albuterol Yes [id number] 2{puff} Inhale 2 Univers 90 9-25 Puffs ity of mcg/actuati 00:00: every 6 [place] as on inhaler 00 (six) Medical hours as Branch needed for Wheezing or Shortness of Breath. albuterol Yes [id number] 2{puff} Inhale 2 Univers 90 9-25 Puffs ity of mcg/actuati 00:00: every 6 [place] as on inhaler 00 (six) Medical hours as Branch needed for Wheezing or Shortness of Breath. albuterol Yes [id number] 2{puff} Inhale 2 Univers 90 9-25 Puffs ity of mcg/actuati 00:00: every 6 [place] as on inhaler 00 (six) Medical hours as Branch needed for Wheezing or Shortness of Breath. albuterol Yes [id number] 2{puff} Inhale 2 Univers 90 9-25 Puffs ity of mcg/actuati 00:00: every 6 [place] as on inhaler 00 (six) Medical hours as Branch needed for Wheezing or Shortness of Breath. albuterol Yes [id number] 2{puff} Inhale 2 Univers 90 9-25 Puffs ity of mcg/actuati 00:00: every 6 [place] as on inhaler 00 (six) Medical hours as Branch needed for Wheezing or Shortness of Breath. promethazin 2020- No [id number] 5mL Take 5 mL Univers e-dextromet -25 10-03 by mouth 4 i ty of horphan 00:00: 04:59 (four) [place] 6.25-15 00 :00 times Medical mg/5 mL daily as Branch syrup needed for Cough or Cold symptoms for up to 7 days. promethazin 2020- No [id number] 5mL Take 5 mL Univers e-dextromet -25 10-03 by mouth 4 i ty of horphan 00:00: 04:59 (four) [place] 6.25-15 00 :00 times Medical mg/5 mL daily as Branch syrup needed for Cough or Cold symptoms for up to 7 days. promethazin 2020- No [id number] 5mL Take 5 mL Univers e-dextromet - 10-03 by mouth 4 i ty of horphan 00:00: 04:59 (four) [place] 6.25-15 00 :00 times Medical mg/5 mL daily as Branch syrup needed for Cough or Cold symptoms for up to 7 days. tiZANidine 0 Yes Univers 2 mg tablet 9-23 ity of 00:00: [facility] tiZANidine 0 Yes Univers 2 mg tablet 9-23 ity of 00:00: [facility] tiZANidine 2020-0 Yes Univers 2 mg tablet 9-23 ity of 00:00: [facility] tiZANidine 2020-0 Yes Univers 2 mg tablet 9-23 ity of 00:00: [facility] tiZANidine 2020-0 Yes Univers 2 mg tablet 9-23 ity of 00:00: [facility] tiZANidine 2020-0 Yes Univers 2 mg tablet 9-23 ity of 00:00: Medical Branch tiZANidine 2020-0 Yes Univers 2 mg tablet 9-23 ity of 00:00: [facility] tiZANidine 2020-0 Yes Univers 2 mg tablet 9-23 ity of 00:00: Medical Branch tiZANidine Yes Univers 2 mg tablet 01-05 ity of 00:00: [facility] tiZANidine Yes Univers 2 mg tablet 01-05 ity of 00:00: [facility] tiZANidine Yes Univers 2 mg tablet 01-05 ity of 00:00: [facility] tiZANidine Yes Univers 2 mg tablet 01-05 ity of 00:00: Medical [place] tiZANidine Yes Univers 2 mg tablet 01-05 ity of 00:00: [facility] tiZANidine Yes Univers 2 mg tablet 01-05 ity of 00:00: [facility] tiZANidine Yes Univers 2 mg tablet 01-05 ity of 00:00: [facility] tiZANidine Yes Univers 2 mg tablet 01-05 ity of 00:00: [facility] ketorolac 2020- No 30mg 30 mg, Unive rs (TORADOL) 12-30 Slow IV ity of injection 23:00: 22:03 Push, [place] 30 mg 00 :00 ONCE, 1 Medical dose, On Branch Sat12/30/20 at 1800, [place]
[facility] Rest[facility] medication : MARU BAEZ [...] On Branch Sat12/30/20 at 1800, [place]
[facility] Restricted medication : MARU BAEZ [...] brandy 1:1:1 Fri Branch ([facility] 12/30/20 at [facility]) 1645, oral Routine suspension 15 [...] brandy 1:1:1 Fri Branch ([facility] 12/30/20 at [facility]) 1645, oral Routine suspension 15 mL famotidine 2020- No 20mg 20 mg, Univ ers (PEPCID 12-30 Slow IV ity of (PF)) 21:45: 20:37 Push, [place] injection 00 :00 ONCE, 1 Medical 20 mg dose, On Branch Sat12/30/20 at 1645, Routine iopamidol 2020- No [id number] 80mL 80 mL, Univers (ISOVUE 12-30 Intravenou ity o f 370-500 mL) 20:00: 18:48 s, ONCE, 1 [place] injection 00 :00 dose, On Medica l 80 mL Fri Branch 12/30/20 at 1500, Routine iopamidol 2020- No [id number] 80mL 80 mL, Univers (ISOVUE 12-30 Intravenou ity o f 370-500 mL) 20:00: 18:48 s, ONCE, 1 [place] injection 00 :00 dose, On Medica l 80 mL Fri Branch 12/30/20 at 1500, Routine morpHINE 2020- No 4mg 4 mg, Slow Un you injection 4 12-30 IV Push, ity of mg 19:30: 18:35 ONCE, 1 [place] 00 :00 dose, On [facility] Branch 12/30/20 at 1430, STAT ondansetron 2020- No 4mg 4 mg, Slow Univers (ZOFRAN 12-30 IV Push, ity of (PF)) 19:30: 18:35 ONCE, 1 [place] injection 4 00 :00 dose, On Medi brandy mg [facility] Branch 12/30/20 at 1430, [place] NaCl 0.9% No 1000mL at 999 Uni vers (NS) bolus 12-30 mL/hr, ity of infusion 19:30: 20:38 1,000 mL, [place] as 1,000 mL 00 :00 IV Medical Piggyback, Branch ONCE, 1 dose, On Sat12/30/20 at 1430, STAT morpHINE 2020- No 4mg 4 mg, Slow Un you injection 4 12-30 IV Push, ity of mg 19:30: 18:35 ONCE, 1 [place] 00 :00 dose, On [facility] 12/30/20 at 1430, STAT ondansetron 2020-2020- No 4mg 4 mg, Slow Univers (ZOFRAN 12-30 IV Push, ity of (PF)) 19:30: 18:35 ONCE, 1 [place] injection 4 00 :00 dose, On Medi brandy mg [facility] Branch 12/30/20 at 1430, [place] NaCl 0.9% 2020- No 1000mL at 999 Uni vers (NS) bolus 12-30 09-17 mL/hr, ity of infusion 19:30: 20:38 1,000 mL, [place] as 1,000 mL 00 :00 IV Medical Piggyback, Branch ONCE, 1 dose, On Sat12/30/20 at 1430, STAT traZODone 2020-0 Yes 100mg Take 100 Uni vers 100 mg 9-17 mg by ity of tablet 10:15: mouth at [place] [address] bedtime. Medical Branch traZODone 2020-0 Yes 100mg Take 100 Uni vers 100 mg 9-17 mg by ity of tablet 10:15: mouth at [place] [address] bedtime. Medical Branch traZODone 2020-0 Yes 100mg Take 100 Uni vers 100 mg 9-17 mg by ity of tablet 10:15: mouth at [place] [address] bedtime. Medical Branch traZODone 2020-0 Yes 100mg Take 100 Uni vers 100 mg 9-17 mg by ity of tablet 10:15: mouth at [place] [address] bedtime. Medical Branch traZODone 2020-0 Yes 100mg Take 100 Uni vers 100 mg 9-17 mg by ity of tablet 10:15: mouth at [place] [address] bedtime. Medical Branch traZODone 2020-0 Yes 100mg Take 100 Uni vers 100 mg 9-17 mg by ity of tablet 10:15: mouth at [place] [address] bedtime. Medical Branch traZODone 2020-0 Yes 100mg Take 100 Uni vers 100 mg 9-17 mg by ity of tablet 10:15: mouth at [place] [address] bedtime. Medical Branch traZODone 2020-0 Yes 100mg Take 100 Uni vers 100 mg 9-17 mg by ity of tablet 10:15: mouth at [place] [address] bedtime. Medical Branch traZODone 2020-0 Yes 100mg Take 100 Uni vers 100 mg 9-17 mg by ity of tablet 10:15: mouth at [place] [address] bedtime. Medical Branch traZODone 2020-0 Yes 100mg Take 100 Uni vers 100 mg 9-17 mg by ity of tablet 10:15: mouth at [place] [address] bedtime. Medical Branch traZODone 2020-0 Yes 100mg Take 100 Uni vers 100 mg 9-17 mg by ity of tablet 10:15: mouth at [place] [address] bedtime. Medical Branch traZODone 2020-0 Yes 100mg Take 100 Uni vers 100 mg 9-17 mg by ity of tablet 10:15: mouth at [place] [address] bedtime. Medical Branch traZODone 2020-0 Yes 100mg Take 100 Uni vers 100 mg 9-17 mg by ity of tablet 10:15: mouth at [place] [address] bedtime. Medical Branch traZODone 2020-0 Yes 100mg Take 100 Uni vers 100 mg 9-17 mg by ity of tablet 10:15: mouth at [place] [address] bedtime. Medical Branch traZODone 2020-0 Yes 100mg Take 100 Uni vers 100 mg 9-17 mg by ity of tablet 10:15: mouth at [place] [address] bedtime. Medical Branch traZODone 2020-0 Yes 100mg Take 100 Uni vers 100 mg 9-17 mg by ity of tablet 10:15: mouth at [place] [address] bedtime. Medical Branch dicyclomine 2020-0 Yes [id number] 20mg Take 1 Univers 20 mg 9-17 tablet by ity of tablet 00:00: mouth [place] 00 every 6 Medical (six) Branch hours as needed for Abdominal pain. dicyclomine 2020-0 Yes [id number] 20mg Take 1 Univers 20 mg 9-17 tablet by ity of tablet 00:00: mouth [place] 00 every 6 Medical (six) Branch hours as needed for Abdominal pain. dicyclomine 2020-0 Yes [id number] 20mg Take 1 Univers 20 mg 9-17 tablet by ity of tablet 00:00: mouth [place] 00 every 6 Medical (six) Branch hours as needed for Abdominal pain. dicyclomine 2020-0 Yes [id number] 20mg Take 1 Univers 20 mg 9-17 tablet by ity of tablet 00:00: mouth [place] 00 every 6 Medical (six) Branch hours as needed for Abdominal pain. dicyclomine 202-0 Yes [id number] 20mg Take 1 Univers 20 mg 9-17 tablet by ity of tablet 00:00: mouth [place] 00 every 6 Medical (six) Branch hours as needed for Abdominal pain. dicyclomine 2020-0 Yes [id number] 20mg Take 1 Univers 20 mg 9-17 tablet by ity of tablet 00:00: mouth [place] 00 every 6 Medical (six) Branch hours as needed for Abdominal pain. dicyclomine 2021-0 Yes [id number] 20mg Take 1 Univers 20 mg 9-17 tablet by ity of tablet 00:00: mouth [place] 00 every 6 Medical (six) Branch hours as needed for Abdominal pain. dicyclomine 2021-0 Yes [id number] 20mg Take 1 Univers 20 mg 9-17 tablet by ity of tablet 00:00: mouth [place] 00 every 6 Medical (six) Branch hours as needed for Abdominal pain. dicyclomine 2021-0 Yes [id number] 20mg Take 1 Univers 20 mg 9-17 tablet by ity of tablet 00:00: mouth [place] 00 every 6 Medical (six) Branch hours as needed for Abdominal pain. dicyclomine 2021-0 Yes [id number] 20mg Take 1 Univers 20 mg 9-17 tablet by ity of tablet 00:00: mouth [place] 00 every 6 Medical (six) Branch hours as needed for Abdominal pain. dicyclomine 1-0 Yes [id number] 20mg Take 1 Univers 20 mg 9-17 tablet by ity of tablet 00:00: mouth [place] 00 every 6 Medical (six) Branch hours as needed for Abdominal pain. dicyclomine 1-0 Yes [id number] 20mg Take 1 Univers 20 mg 9-17 tablet by ity of tablet 00:00: mouth [place] 00 every 6 Medical (six) Branch hours as needed for Abdominal pain. dicyclomine 1-0 Yes [id number] 20mg Take 1 Univers 20 mg 9-17 tablet by ity of tablet 00:00: mouth [place] 00 every 6 Medical (six) Branch hours as needed for Abdominal pain. dicyclomine 1-0 Yes [id number] 20mg Take 1 Univers 20 mg 9-17 tablet by ity of tablet 00:00: mouth [place] 00 every 6 Medical (six) Branch hours as needed for Abdominal pain. dicyclomine 2021-0 Yes [id number] 20mg Take 1 Univers 20 mg 9-17 tablet by ity of tablet 00:00: mouth [place] 00 every 6 Medical (six) Branch hours as needed for Abdominal pain. dicyclomine 2021-0 Yes [id number] 20mg Take 1 Univers 20 mg 9-17 tablet by ity of tablet 00:00: mouth [place] 00 every 6 Medical (six) Branch hours as needed for Abdominal pain. dicyclomine 2020-0 Yes [id number] 20mg Take 1 Univers 20 mg 9-17 tablet by ity of tablet 00:00: mouth [place] 00 every 6 Medical (six) Branch hours as needed for Abdominal pain. dicyclomine 0 2022- No [id number] 20mg Take 1 Univers 20 mg 9-17 02-06 tablet by ity of tablet 00:00: 00:00 [...] mouth [place] 50 daily. Medical Branch gabapentin 202-0 Yes 300mg Take 300 Un you 300 [...] 50 (two) Medical times Branch daily. losartan 2020-0 Yes 100mg Take 100 Univ ers 100 mg 9-03 mg by ity of tablet 10:23: mouth [place] 50 daily. Medical Branch gabapentin 2020-0 Yes 300mg Take 300 Un you 300 mg 9-03 mg by ity of capsule 10:23: mouth 2 [place] 50 (two) Medical times Branch daily. cephALEXin 2020-0 2020- No [id number] 500mg Take 1 Univers 500 mg 12-16 capsule by ity of capsule 00:00: 04:59 mouth 4 [place] 00 :00 (four) Medical times Branch daily for 7 days. cephALEXin 2020-0 2020- No [id number] 500mg Take 1 Univers 500 mg 12-16 capsule by ity of capsule 00:00: 04:59 mouth 4 [place] 00 :00 (four) Medical times Branch daily for 7 days. hydrOXYzine 0 Yes Univer s 25 mg 9-01 ity of tablet 00:00: [place] [facility] SERTraline 2020-0 Yes Univers 25 mg 9- ity of tablet 00:00: [place] [facility] hydrOXYzine 2020-0 Yes Univer s 25 mg 9-01 ity of tablet 00:00: [place] [facility] SERTraline 2020-0 Yes Univers 25 mg 9-01 ity of tablet 00:00: Medical Branch hydrOXYzine 2020-0 Yes Univer s 25 mg 9-01 ity of tablet 00:00: [place] [facility] SERTraline 2020-0 Yes Univers 25 mg 9-01 ity of tablet 00:00: [place] [facility] hydrOXYzine 2020-0 Yes Univer s 25 mg 9-01 ity of tablet 00:00: [place] [facility] SERTraline 2020-0 Yes Univers 25 mg 9-01 ity of tablet 00:00: [place] [facility] hydrOXYzine 2020-0 Yes Univer s 25 mg 9-01 ity of tablet 00:00: [place] [facility] SERTraline 2020-0 Yes Univers 25 mg 9- ity of tablet 00:00: [place] [facility] hydrOXYzine 2020-0 Yes Univer s 25 mg 9- ity of tablet 00:00: [place] [facility] SERTraline 2020-0 Yes Univers 25 mg 9- ity of tablet 00:00: [place] [facility] hydrOXYzine 2020-0 Yes Univer s 25 mg 9 ity of tablet 00:00: [place] [facility] SERTraline 2020-0 Yes Univers 25 mg 9- ity of tablet 00:00: [place] [facility] hydrOXYzine 2020-0 Yes Univer s 25 mg 9- ity of tablet 00:00: [place] [facility] SERTraline 2020-0 Yes Univers 25 mg 9- ity of tablet 00:00: [place] [facility] hydrOXYzine 2020-0 Yes Univer s 25 mg 9- ity of tablet 00:00: [place] [facility] SERTraline 2020-0 Yes Univers 25 mg 9- ity of tablet 00:00: [place] [facility] hydrOXYzine 2020-0 Yes Univer s 25 mg 9- ity of tablet 00:00: [place] [address] Medical Branch SERTraline 2020-0 Yes Univers 25 mg 9- ity of tablet 00:00: [place] [facility] hydrOXYzine 2020-0 Yes Univer s 25 mg 9- ity of tablet 00:00: [place] [address] Medical Branch SERTraline 2020-0 Yes Univers 25 mg 9- ity of tablet 00:00: [place] [facility] hydrOXYzine 2020-0 Yes Univer s 25 mg 9- ity of tablet 00:00: [place] [facility] SERTraline 2020-0 Yes Univers 25 mg 9- ity of tablet 00:00: [place] [facility] hydrOXYzine 2020-0 Yes Univer s 25 mg 9- ity of tablet 00:00: [place] [address] Medical Branch SERTraline 2020-0 Yes Univers 25 mg 9- ity of tablet 00:00: [place] [facility] hydrOXYzine 2020-0 Yes Univer s 25 mg 9- ity of tablet 00:00: [place] [facility] SERTraline 2020-0 Yes Univers 25 mg 9- ity of tablet 00:00: [facility] hydrOXYzine Yes Univer s 25 mg 12-14 ity of tablet 00:00: [facility] SERTraline Yes Univers 25 mg 12-14 ity of tablet 00:00: [facility] SERTraline Yes Univers 25 mg 12-14 ity of tablet 00:00: [facility] hydrOXYzine 2021- No Unive rs 25 mg 12-14 ity of tablet 00:00: 00:00 [place] 00 :00 [facility] morpHINE 2020- No 4mg 4 mg, Slow Un you injection 4 12-06 IV Push, ity of mg 00:00: 23:00 ONCE, 1 [place] 00 :00 dose, [facility] 12/05/20 at Branch 1900, STAT dicyclomine 2020- No 20mg 20 mg, Uni vers (BENTYL) 12-06 Intramuscu ity of injection 00:00: 23:00 [place], ONCE, [place] 20 mg 00 :00 1 dose, [facility] 12/05/20 at 1900, Routine iopamidol 2020- No [id number] 120mL 120 mL, Univers (ISOVUE 12-05 Intravenou ity o f 370-500 mL) 22:30: 21:20 s, ONCE, 1 [place] injection 00 :00 dose, [facility] 120 mL 12/05/20 at Branch 1730, Routine famotidine 2020- No 20mg 20 mg, Univ ers (PEPCID 12-05 Slow IV ity of (PF)) 22:15: 22:14 Push, [place] injection 00 :00 ONCE, 1 Medical 20 mg dose, [facility] 12/05/20 at 1715, [place] maalox:diph 2020- No 15mL 15 mL, Uni vers enhydrAMINE 12-05 Oral, ity of :lidocaine 22:15: 22:13 ONCE, 1 [place] as 2 % viscous 00 :00 dose, [facility] 1:1:1 12/05/20 at [place] ([facility] 1715, [facility] BLM) Routine oral suspension 15 mL NaCl 0.9% 2020- No 1000mL at 999 Uni vers (NS) bolus 12-05- mL/hr, ity of infusion 22:00: 23:51 1,000 mL, Archie as 1,000 mL 00 :00 IV Medical Piggyback, [place] ONCE, 1 dose, [facility] 12/05/20 at 1700, STAT ondansetron 2020- No 4mg 4 mg, Slow Univers (ZOFRAN 12-05 IV Push, ity of (PF)) 22:00: 22:13 ONCE, 1 [place] injection 4 00 :00 dose, Mon Med ical mg 12/05/20 at Branch 1700, [place] morpHINE 2020- No 4mg 4 mg, Slow Un you injection 4 12-05 IV Push, ity of mg 22:00: 22:15 ONCE, 1 [place] 00 :00 dose, [facility] 12/05/20 at Branch 1700, STAT ondansetron 0 Yes [id number] 4mg Take 1 [facility] 4 mg 8-23 tablet by ity of disintegrat 00:00: mouth [place] ing tablet 00 every 8 Medica l (eight) Branch hours as needed for Nausea and Vomiting (N/V). ondansetron 0 Yes [id number] 4mg Take 1 [facility] 4 mg 8-23 tablet by ity of disintegrat 00:00: mouth [place] ing tablet 00 every 8 Medica l (eight) Branch hours as needed for Nausea and Vomiting (N/V). ondansetron 2020-0 Yes [id number] 4mg Take 1 [facility] 4 mg 8-23 tablet by ity of disintegrat 00:00: mouth [place] ing tablet 00 every 8 Medica l (eight) Branch hours as needed for Nausea and Vomiting (N/V). ondansetron 2020-0 Yes [id number] 4mg Take 1 [facility] 4 mg 8-23 tablet by ity of disintegrat 00:00: mouth [place] ing tablet 00 every 8 Medica l (eight) Branch hours as needed for Nausea and Vomiting (N/V). ondansetron 2020-0 Yes [id number] 4mg Take 1 [facility] 4 mg 8-23 tablet by ity of disintegrat 00:00: mouth [place] ing tablet 00 every 8 Medica l (eight) Branch hours as needed for Nausea and Vomiting (N/V). ondansetron 2020-0 Yes [id number] 4mg Take 1 [facility] 4 mg 8-23 tablet by ity of disintegrat 00:00: mouth [place] ing tablet 00 every 8 Medica l (eight) Branch hours as needed for Nausea and Vomiting (N/V). ondansetron 0 Yes [id number] 4mg Take 1 [facility] 4 mg 8-23 tablet by ity of disintegrat 00:00: mouth [place] ing tablet 00 every 8 Medica l (eight) Branch hours as needed for Nausea and Vomiting (N/V). ondansetron 0 Yes [id number] 4mg Take 1 [facility] 4 mg 8-23 tablet by ity of disintegrat 00:00: mouth [place] ing tablet 00 every 8 Medica l (eight) Branch hours as needed for Nausea and Vomiting (N/V). ondansetron 0 Yes [id number] 4mg Take 1 [facility] 4 mg 8-23 tablet by ity of disintegrat 00:00: mouth [place] ing tablet 00 every 8 Medica l (eight) Branch hours as needed for Nausea and Vomiting (N/V). ondansetron 0 Yes [id number] 4mg Take 1 [facility] 4 mg 8-23 tablet by ity of disintegrat 00:00: mouth [place] ing tablet 00 every 8 Medica l (eight) Branch hours as needed for Nausea and Vomiting (N/V). ondansetron 0 Yes [id number] 4mg Take 1 [facility] 4 mg 8-23 tablet by ity of disintegrat 00:00: mouth [place] ing tablet 00 every 8 Medica l (eight) Branch hours as needed for Nausea and Vomiting (N/V). ondansetron 0 Yes [id number] 4mg Take 1 [facility] 4 mg 8-23 tablet by ity of disintegrat 00:00: mouth [place] ing tablet 00 every 8 Medica l (eight) Branch hours as needed for Nausea and Vomiting (N/V). ondansetron 2020-0 Yes [id number] 4mg Take 1 [facility] 4 mg 8-23 tablet by ity of disintegrat 00:00: mouth [place] ing tablet 00 every 8 Medica l (eight) Branch hours as needed for Nausea and Vomiting (N/V). ondansetron 2020-0 Yes [id number] 4mg Take 1 [facility] 4 mg 8-23 tablet by ity of disintegrat 00:00: mouth [place] ing tablet 00 every 8 Medica l (eight) Branch hours as needed for Nausea and Vomiting (N/V). ondansetron 2020-0 Yes [id number] 4mg Take 1 Univers 4 mg 8-23 tablet by ity of disintegrat 00:00: mouth [place] ing tablet 00 every 8 Medica l (eight) Branch hours as needed for Nausea and Vomiting (N/V). ondansetron 2020-0 Yes [id number] 4mg Take 1 [facility] 4 mg 8-23 tablet by ity of disintegrat 00:00: mouth [place] ing tablet 00 every 8 Medica l (eight) Branch hours as needed for Nausea and Vomiting (N/V). ondansetron 2020-0 Yes [id number] 4mg Take 1 [facility] 4 mg 8-23 tablet by ity of disintegrat 00:00: mouth [place] ing tablet 00 every 8 Medica l (eight) Branch hours as needed for Nausea and Vomiting (N/V). ondansetron 2020-0 Yes [id number] 4mg Take 1 [facility] 4 mg 8-23 tablet by ity of disintegrat 00:00: mouth [place] ing tablet 00 every 8 Medica l (eight) Branch hours as needed for Nausea and Vomiting (N/V). ondansetron 2020-0 Yes [id number] 4mg Take 1 [facility] 4 mg 8-23 tablet by ity of disintegrat 00:00: mouth [place] ing tablet 00 every 8 Medica l (eight) Branch hours as needed for Nausea and Vomiting (N/V). ondansetron 2020-0 Yes [id number] 4mg Take 1 [facility] 4 mg 8-23 tablet by ity of disintegrat 00:00: mouth [place] ing tablet 00 every 8 Medica l (eight) Branch hours as needed for Nausea and Vomiting (N/V). ondansetron 2020-0 Yes [id number] 4mg Take 1 [facility] 4 mg 8-23 tablet by ity of disintegrat 00:00: mouth [place] ing tablet 00 every 8 Medica l (eight) Branch hours as needed for Nausea and Vomiting (N/V). ondansetron Yes [id number] 4mg Take 1 [facility] 4 mg 8-23 tablet by ity of disintegrat 00:00: mouth [place] ing tablet 00 every 8 Medica l (eight) Branch hours as needed for Nausea and Vomiting (N/V). ondansetron Yes [id number] 4mg Take 1 [facility] 4 mg 8-23 tablet by ity of disintegrat 00:00: mouth [place] ing tablet 00 every 8 Medica l (eight) Branch hours as needed for Nausea and Vomiting (N/V). ondansetron Yes [id number] 4mg Take 1 [facility] 4 mg 8-23 tablet by ity of disintegrat 00:00: mouth [place] ing tablet 00 every 8 Medica l (eight) Branch hours as needed for Nausea and Vomiting (N/V). ondansetron 2021- No [id number] 4mg Take 1 [facility] 4 mg 8-23 02-06 tablet by ity of disintegrat 00:00: 00:00 mouth [place] tablet 00 :00 every 8 Medica l (eight) Branch hours as needed for Nausea and Vomiting (N/V). dicyclomine 2020- No [id number] 20mg Take 1 [facility] 20 mg 8-23 08-31 tablet by ity of tablet 00:00: 04:59 mouth 4 [place] 00 :00 (four) Medical times Branch daily for 7 days. fenofibrate Yes 134mg 134 mg, Un you micronized 7-01 Oral, ity of (LOFIBRA) 14:00: DAILY, [place] capsule 134 00 First dose Me dical mg on Lilian Branch 10/13/20 at 0900, Until Discontinu ed, Routine traZODone Yes 100mg Take 100 Uni vers 100 mg 7-01 mg by ity of tablet 01:44: mouth at [place] 06 bedtime. Medical Branch losartan 2020-0 Yes 100mg Take 100 Univ ers 100 mg 7-01 mg by ity of tablet 01:44: mouth [place] 06 daily. Medical Branch gabapentin 0 Yes 300mg Take 300 Un you 300 mg 7-01 mg by ity of capsule 01:44: mouth 2 [place] 06 (two) Medical times Branch daily. traZODone Yes 100mg Take 100 Uni vers 100 mg 7-01 mg by ity of tablet 01:44: mouth at [place] 06 bedtime. Medical Branch losartan Yes 100mg Take 100 Univ ers 100 mg 7-01 mg by ity of tablet 01:44: mouth [place] 06 daily. Medical Branch gabapentin Yes 300mg Take 300 Un you 300 mg 7-01 mg by ity of capsule 01:44: mouth 2 [place] 06 (two) Medical times Branch daily. HYDROcodone Yes 1{tbl} 1 tablet, Univers -acetaminop 10-13 Oral, BID, it y of hen (NORCO 01:00: First dose [place] 5) 5-325 mg 00 on Sat Medica l tablet 1 10/12/20 at [facility] tablet 2000, Until Discontinu ed, Routine proMETHazin 2020- No 25mg 25 mg, Uni vers e 10-12 Oral, ity of (PHENERGAN) 17:45: 20:05 ONCE, 1 [place] tablet 25 00 :00 dose, Sat Medic al mg 10/12/20 at Branch 1245, Routine tiZANidine 2020- No 4mg 4 mg, Unive rs (ZANAFLEX) 10-12 Oral, ity of tablet 4 mg 17:45: 20:05 ONCE, 1 [place] 00 :00 dose, [facility] 10/12/20 at Branch 1245, Routine lipase-prot Yes 3{capsu 3 capsule, Univers ease-amylas 10-12 le} Oral, TID ity of e (CREON) 17:00: MEALS, [place] 12,000-38,0 00 First dose Me dical 00 -60,000 on Wed Branch unit 10/12/20 at capsule 3 1200, capsule Until Discontinu ed, Routine losartan Yes 100mg 100 mg, Unive rs (COZAAR) 10-12 Oral, ity of tablet 100 14:00: DAILY, [place] mg 00 First dose Medical on Wed Branch 10/12/20 at 0900, Until Discontinu ed, Routine ursodioL Yes 250mg 250 mg, Unive rs (EUGENE) 10-12 Oral, BID, ity of tablet 250 13:00: First dose [place] mg 00 on Sat10/12/20 at Branch 0800, Until Discontinu ed, Routine [...] dose [place] mg 00 on Sat [facility] 10/11/20 at Branch 2200, Until Discontinu ed, Routine gabapentin Yes 300mg 300 mg, Uni vers (NEURONTIN) 6-30 Oral, BID, it y of capsule 300 03:00: First dose [place] mg 00 on Sat [facility] 10/11/20 at Branch 2200, Until Discontinu ed, Routine ondansetron Yes 4mg 4 mg, Slow Univers (ZOFRAN 6-30 IV Push, ity of (PF)) 02:52: Q6HPRN, [place] injection 4 29 Starting Medi brandy mg [facility] 10/11/20 at 2152, Until Discontinu ed, Routine, Nausea and Vomiting (N/V) HYDROcodone 2020- No 1{tbl} 1 tablet, Univers -acetaminop 6-30 06-30 Oral, ity of hen (NORCO) 02:52: 15:44 Q6HPRN, [place] 10-325 mg 25 :37 Starting Medica l tablet 1 [facility] tablet 10/11/20 at 2152, Until Sat10/12/20 at 1044, Routine, Pain (scale 7-10) HYDROcodone 0 2020- No 1{tbl} 1 tablet, Univers -acetaminop 6-30 07-02 Oral, ity of hen (NORCO 02:51: 02:50 Q6HPRN, [place] as 5) 5-325 mg 18 :18 Starting Medi brandy tablet 1 Branch tablet 10/11/20 at 2151, Until Lilian 10/13/20 at 2150, Routine, Pain (scale 4-6) ibuprofen 2021-0 Yes 200mg 200 mg, Univ ers (MOTRIN IB) 6-30 Oral, ity of tablet 200 02:51: Q6HPRN, [place] mg 13 Starting [facility] 10/11/20 at 2151, Until Discontinu ed, Routine, Pain (scale 1-3) morpHINE 2020- No 4mg 4 mg, Slow Un you injection 4 6-30 06-30 IV Push, ity of mg 01:15: 00:14 ONCE, 1 [place] 00 :00 dose, [facility] 10/11/20 at Branch 2015, STAT fenofibrate Yes [id number] 145mg Take 1 Univers 145 mg 6-30 tablet by ity of tablet 00:00: mouth [place] 00 daily. [facility] Branch lipase-prot Yes [id number] 3{capsu Take 3 Univers ease-amylas 6-30 le} capsules ity of e 00:00: by mouth 3 [place] 12,000-38,0 00 (three) Medic al 00 -60,000 times Branch unit daily with capsule meals. ursodioL Yes [id number] 250mg Take 1 Un you 250 mg 6-30 tablet by ity of tablet 00:00: mouth 2 [place] 00 (two) Medical times [place] daily. fenofibrate Yes [id number] 145mg Take 1 Univers 145 mg 6-30 tablet by ity of tablet 00:00: mouth [place] 00 daily. [facility] Branch lipase-prot Yes [id number] 3{capsu Take 3 Univers ease-amylas 6-30 le} capsules ity of e 00:00: by mouth 3 [place] 12,000-38,0 00 (three) Medic al 00 -60,000 times Branch unit daily with capsule meals. ursodioL Yes [id number] 250mg Take 1 Un you 250 mg 6-30 tablet by ity of tablet 00:00: mouth 2 [place] 00 (two) Medical times [place] daily. fenofibrate 2020-0 Yes [id number] 145mg Take 1 Univers 145 mg 6-30 tablet by ity of tablet 00:00: mouth [place] 00 daily. [facility] Branch lipase-prot Yes [id number] 3{capsu Take 3 Univers ease-amylas 6-30 le} capsules ity of e 00:00: by mouth 3 [place] 12,000-38,0 00 (three) Medic al 00 -60,000 times Branch unit daily with capsule meals. ursodioL 2020-0 Yes [id number] 250mg Take 1 Un you 250 mg 6-30 tablet by ity of tablet 00:00: mouth 2 [place] 00 (two) Medical times Branch daily. fenofibrate 2020-0 Yes [id number] 145mg Take 1 [facility] 145 mg 6-30 tablet by ity of tablet 00:00: mouth [place] 00 daily. Medical Branch lipase-prot 2020-0 Yes [id number] 3{capsu Take 3 Univers ease-amylas 6-30 le} capsules ity of e 00:00: by mouth 3 [place] 12,000-38,0 00 (three) Medic al 00 -60,000 times Branch unit daily with capsule meals. ursodioL 2020-0 Yes [id number] 250mg Take 1 Un you 250 mg 6-30 tablet by ity of tablet 00:00: mouth 2 [place] (two) Medical times Branch daily. fenofibrate 2020-0 Yes [id number] 145mg Take 1 [facility] 145 mg 6-30 tablet by ity of tablet 00:00: mouth [place] 00 daily. Medical Branch lipase-prot 2020-0 Yes [id number] 3{capsu Take 3 Univers ease-amylas 6-30 le} capsules ity of e 00:00: by mouth 3 [place] 12,000-38,0 00 (three) Medic al 00 -60,000 times Branch unit daily with capsule meals. ursodioL 2020-0 Yes [id number] 250mg Take 1 Un you 250 mg 6-30 tablet by ity of tablet 00:00: mouth 2 [place] 00 (two) Medical times Branch daily. fenofibrate 2020-0 Yes [id number] 145mg Take 1 Univers 145 mg 6-30 tablet by ity of tablet 00:00: mouth [place] 00 daily. Medical Branch lipase-prot 2020-0 Yes [id number] 3{capsu Take 3 Univers ease-amylas 6-30 le} capsules ity of e 00:00: by mouth 3 [place] 12,000-38,0 00 (three) Medic al 00 -60,000 times Branch unit daily with capsule meals. ursodioL 2020-0 Yes [id number] 250mg Take 1 Un you 250 mg 6-30 tablet by ity of tablet 00:00: mouth 2 [place] 00 (two) Medical times Branch daily. fenofibrate 2020-0 Yes [id number] 145mg Take 1 Univers 145 mg 6-30 tablet by ity of tablet 00:00: mouth [place] 00 daily. Medical Branch lipase-prot 2020-0 Yes [id number] 3{capsu Take 3 Univers ease-amylas 6-30 le} capsules ity of e 00:00: by mouth 3 [place] 12,000-38,0 00 (three) Medic al 00 -60,000 times Branch unit daily with capsule meals. ursodioL 2020-0 Yes [id number] 250mg Take 1 Un you 250 mg 6-30 tablet by ity of tablet 00:00: mouth 2 00 (two) Medical times Branch daily. fenofibrate 2020-0 Yes [id number] 145mg Take 1 [facility] 145 mg 6-30 tablet by ity of tablet 00:00: mouth [place] 00 daily. Medical Branch lipase-prot 2020-0 Yes [id number] 3{capsu Take 3 Univers ease-amylas 6-30 le} capsules ity of e 00:00: by mouth 3 [place] 12,000-38,0 00 (three) Medic al 00 -60,000 times Branch unit daily with capsule meals. ursodioL 2020-0 Yes [id number] 250mg Take 1 Un you 250 mg 6-30 tablet by ity of tablet 00:00: mouth 2 00 (two) Medical times Branch daily. fenofibrate 2020-0 Yes [id number] 145mg Take 1 Univers 145 mg 6-30 tablet by ity of tablet 00:00: mouth [place] 00 daily. Medical Branch lipase-prot 2020-0 Yes [id number] 3{capsu Take 3 Univers ease-amylas 6-30 le} capsules ity of e 00:00: by mouth 3 [place] 12,000-38,0 00 (three) Medic al 00 -60,000 times Branch unit daily with capsule meals. ursodioL 2020-0 Yes [id number] 250mg Take 1 Un you 250 mg 6-30 tablet by ity of tablet 00:00: mouth 2 [place] 00 (two) Medical times Branch daily. fenofibrate 2020-0 Yes [id number] 145mg Take 1 Univers 145 mg 6-30 tablet by ity of tablet 00:00: mouth [place] 00 daily. Medical Branch lipase-prot 2020-0 Yes [id number] 3{capsu Take 3 Univers ease-amylas 6-30 le} capsules ity of e 00:00: by mouth 3 [place] 12,000-38,0 00 (three) Medic al 00 -60,000 times Branch unit daily with capsule meals. ursodioL 2020-0 Yes [id number] 250mg Take 1 Un you 250 mg 6-30 tablet by ity of tablet 00:00: mouth 2 [place] 00 (two) Medical times Branch daily. fenofibrate 2020-0 Yes [id number] 145mg Take 1 Univers 145 mg 6-30 tablet by ity of tablet 00:00: mouth [place] 00 daily. Medical Branch lipase-prot 2020-0 Yes [id number] 3{capsu Take 3 Univers ease-amylas 6-30 le} capsules ity of e 00:00: by mouth 3 [place] 12,000-38,0 00 (three) Medic al 00 -60,000 times Branch unit daily with capsule meals. ursodioL 2020-0 Yes [id number] 250mg Take 1 Un you 250 mg 6-30 tablet by ity of tablet 00:00: mouth 2 00 (two) Medical times Branch daily. fenofibrate 2020-0 Yes [id number] 145mg Take 1 Univers 145 mg 6-30 tablet by ity of tablet 00:00: mouth [place] 00 daily. Medical Branch lipase-prot 2020-0 Yes [id number] 3{capsu Take 3 Univers ease-amylas 6-30 le} capsules ity of e 00:00: by mouth 3 [place] 12,000-38,0 00 (three) Medic al 00 -60,000 times Branch unit daily with capsule meals. ursodioL 2020-0 Yes [id number] 250mg Take 1 Un you 250 mg 6-30 tablet by ity of tablet 00:00: mouth 2 00 (two) Medical times Branch daily. fenofibrate 2020-0 Yes [id number] 145mg Take 1 Univers 145 mg 6-30 tablet by ity of tablet 00:00: mouth [place] 00 daily. Medical Branch lipase-prot 2020-0 Yes [id number] 3{capsu Take 3 [facility] ease-amylas 6-30 le} capsules ity of e 00:00: by mouth 3 [place] 12,000-38,0 00 (three) Medic al 00 -60,000 times Branch unit daily with capsule meals. ursodioL 2020-0 Yes [id number] 250mg Take 1 Un you 250 mg 6-30 tablet by ity of tablet 00:00: mouth 2 00 (two) Medical times Branch daily. fenofibrate 2020-0 Yes [id number] 145mg Take 1 Univers 145 mg 6-30 tablet by ity of tablet 00:00: mouth [place] 00 daily. Medical Branch lipase-prot 2020-0 Yes [id number] 3{capsu Take 3 Univers ease-amylas 6-30 le} capsules ity of e 00:00: by mouth 3 [place] 12,000-38,0 00 (three) Medic al 00 -60,000 times Branch unit daily with capsule meals. ursodioL 2020-0 Yes [id number] 250mg Take 1 Un you 250 mg 6-30 tablet by ity of tablet 00:00: mouth 2 00 (two) Medical times Branch daily. fenofibrate 2020-0 Yes [id number] 145mg Take 1 [facility] 145 mg 6-30 tablet by ity of tablet 00:00: mouth 00 daily. Medical Branch lipase-prot 2020-0 Yes [id number] 3{capsu Take 3 [facility] ease-amylas 6-30 le} capsules ity of e 00:00: by mouth 3 [place] 12,000-38,0 00 (three) Medic al 00 -60,000 times Branch unit daily with capsule meals. ursodioL 2020-0 Yes [id number] 250mg Take 1 Un you 250 mg 6-30 tablet by ity of tablet 00:00: mouth 2 00 (two) Medical times Branch daily. fenofibrate 2020-0 Yes [id number] 145mg Take 1 [facility] 145 mg 6-30 tablet by ity of tablet 00:00: mouth 00 daily. Medical Branch lipase-prot 2020-0 Yes [id number] 3{capsu Take 3 [facility] ease-amylas 6-30 le} capsules ity of e 00:00: by mouth 3 [place] 12,000-38,0 00 (three) Medic al 00 -60,000 times Branch unit daily with capsule meals. ursodioL 2020-0 Yes [id number] 250mg Take 1 Un you 250 mg 6-30 tablet by ity of tablet 00:00: mouth 2 00 (two) Medical times Branch daily. fenofibrate 2020-0 Yes [id number] 145mg Take 1 [facility] 145 mg 6-30 tablet by ity of tablet 00:00: mouth 00 daily. Medical Branch lipase-prot 2020-0 Yes [id number] 3{capsu Take 3 [facility] ease-amylas 6-30 le} capsules ity of e 00:00: by mouth 3 [place] 12,000-38,0 00 (three) Medic al 00 -60,000 times Branch unit daily with capsule meals. ursodioL 2020-0 Yes [id number] 250mg Take 1 Un you 250 mg 6-30 tablet by ity of tablet 00:00: mouth 2 00 (two) Medical times Branch daily. fenofibrate 2020-0 Yes [id number] 145mg Take 1 [facility] 145 mg 6-30 tablet by ity of tablet 00:00: mouth 00 daily. Medical Branch lipase-prot 2020-0 Yes [id number] 3{capsu Take 3 [facility] ease-amylas 6-30 le} capsules ity of e 00:00: by mouth 3 [place] 12,000-38,0 00 (three) Medic al 00 -60,000 times Branch unit daily with capsule meals. ursodioL 2020-0 Yes [id number] 250mg Take 1 Un you 250 mg 6-30 tablet by ity of tablet 00:00: mouth 2 00 (two) Medical times Branch daily. fenofibrate 2020-0 Yes [id number] 145mg Take 1 [facility] 145 mg 6-30 tablet by ity of tablet 00:00: mouth 00 daily. Medical Branch lipase-prot 2020-0 Yes [id number] 3{capsu Take 3 [facility] ease-amylas 6-30 le} capsules ity of e 00:00: by mouth 3 [place] 12,000-38,0 00 (three) Medic al 00 -60,000 times Branch unit daily with capsule meals. ursodioL 2020-0 Yes [id number] 250mg Take 1 Un you 250 mg 6-30 tablet by ity of tablet 00:00: mouth 2 00 (two) Medical times Branch daily. fenofibrate 2020-0 Yes [id number] 145mg Take 1 [facility] 145 mg 6-30 tablet by ity of tablet 00:00: mouth [place] 00 daily. Medical Branch lipase-prot 2020-0 Yes [id number] 3{capsu Take 3 [facility] ease-amylas 6-30 le} capsules ity of e 00:00: by mouth 3 [place] 12,000-38,0 00 (three) Medic al 00 -60,000 times Branch unit daily with capsule meals. ursodioL 2020-0 Yes [id number] 250mg Take 1 Un you 250 mg 6-30 tablet by ity of tablet 00:00: mouth 2 00 (two) Medical times Branch daily. fenofibrate 2020-0 Yes [id number] 145mg Take 1 [facility] 145 mg 6-30 tablet by ity of tablet 00:00: mouth [place] 00 daily. Medical Branch fenofibrate 2020-0 Yes [id number] 145mg Take 1 [facility] 145 mg 6-30 tablet by ity of tablet 00:00: mouth [place] 00 daily. Medical Branch lipase-prot 2020-0 Yes [id number] 3{capsu Take 3 [facility] ease-amylas 6-30 le} capsules ity of e 00:00: by mouth 3 [place] 12,000-38,0 00 (three) Medic al 00 -60,000 times Branch unit daily with capsule meals. ursodioL 2020-0 Yes [id number] 250mg Take 1 Un you 250 mg 6-30 tablet by ity of tablet 00:00: mouth 2 (two) Medical times Branch daily. lipase-prot 2020-0 Yes [id number] 3{capsu Take 3 [facility] ease-amylas 6-30 le} capsules ity of e 00:00: by mouth 3 [place] 12,000-38,0 00 (three) Medic al 00 -60,000 times Branch unit daily with capsule meals. ursodioL 2020-0 Yes [id number] 250mg Take 1 Un you 250 mg 6-30 tablet by ity of tablet 00:00: mouth 2 (two) Medical times Branch daily. fenofibrate 2020-0 Yes [id number] 145mg Take 1 [facility] 145 mg 6-30 tablet by ity of tablet 00:00: mouth [place] 00 daily. Medical Branch lipase-prot 2020-0 Yes [id number] 3{capsu Take 3 [facility] ease-amylas 6-30 le} capsules ity of e 00:00: by mouth 3 [place] 12,000-38,0 00 (three) Medic al 00 -60,000 times Branch unit daily with capsule meals. ursodioL 2020-0 Yes [id number] 250mg Take 1 Un you 250 mg 6-30 tablet by ity of tablet 00:00: mouth 2 [place] 00 (two) Medical times Branch daily. fenofibrate 0 Yes [id number] 145mg Take 1 [facility] 145 mg 6-30 tablet by ity of tablet 00:00: mouth [place] 00 daily. Medical Branch lipase-prot 2020-0 Yes [id number] 3{capsu Take 3 [facility] ease-amylas 6-30 le} capsules ity of e 00:00: by mouth 3 [place] 12,000-38,0 00 (three) Medic al 00 -60,000 times Branch unit daily with capsule meals. ursodioL Yes [id number] 250mg Take 1 Un you 250 mg 6-30 tablet by ity of tablet 00:00: mouth 2 [place] 00 (two) Medical times Branch daily. fenofibrate 0 Yes [id number] 145mg Take 1 [facility] 145 mg 6-30 tablet by ity of tablet 00:00: mouth [place] 00 daily. Medical Branch fenofibrate 0 Yes [id number] 145mg Take 1 [facility] 145 mg 6-30 tablet by ity of tablet 00:00: mouth [place] 00 daily. Medical Branch lipase-prot 2020-0 Yes [id number] 3{capsu Take 3 [facility] ease-amylas 6-30 le} capsules ity of e 00:00: by mouth 3 [place] 12,000-38,0 00 (three) Medic al 00 -60,000 times Branch unit daily with capsule meals. ursodioL Yes [id number] 250mg Take 1 Un you 250 mg 6-30 tablet by ity of tablet 00:00: mouth 2 [place] 00 (two) Medical times Branch daily. lipase-prot 2020-0 2021- No [id number] 3{capsu Take 3 [facility] ease-amylas 6-30 02-06 le} capsules ity of e 00:00: 00:00 by mouth 3 [place] 12,000-38,0 00 :00 (three) Medic al 00 -60,000 times Branch unit daily with capsule meals. ursodioL 2020-0 2021- No [id number] 250mg Take 1 U nivers 250 mg 6-30 02-06 tablet by ity of tablet 00:00: 00:00 mouth 2 [place] 00 :00 (two) Medical times [place] daily. morpHINE 2020-2020- No 6mg 6 mg, Slow Un you injection 6 10-11 IV Push, ity of mg 22:15: 21:09 ONCE, 1 [place] 00 :00 dose, [facility] 10/11/20 at Branch 1715, STAT FENTanyl PF 2020-2020- No 100ug 100 mcg, Univers (SUBLIMAZE 10-11 Slow IV ity o f (PF)) 20:00: 18:53 Push, [place] injection 00 :00 ONCE, 1 Medical 100 mcg dose, [facility] 10/11/20 at 1500, Routine ondansetron 2020- No 4mg 4 mg, Slow Univers (ZOFRAN 10-11 IV Push, ity of (PF)) 20:00: 18:54 ONCE, 1 [place] injection 4 00 :00 dose, [facility] Med ical mg 10/11/20 at Branch 1500, [place] morpHINE 2020-2020- No 6mg 6 mg, Slow Un you injection 6 10-11 IV Push, ity of mg 16:45: 15:42 ONCE, 1 [place] 00 :00 dose, [facility] 10/11/20 at Branch 1145, STAT FENTanyl PF 2020-2020- No 100ug 100 mcg, Univers (SUBLIMAZE 10-11 Slow IV ity o f (PF)) 16:15: 15:06 Push, [place] injection 00 :00 ONCE, 1 Medical 100 mcg dose, [facility] 10/11/20 at 1115, Routine metoclopram 2020- No 10mg 10 mg, Uni vers selena HCl 10-11 Slow IV ity of (REGLAN) 16:15: 15:06 Push, [place] injection 00 :00 ONCE, 1 Medical 10 mg dose, [facility] 10/11/20 at 1115, [place]IS morpHINE 2020-0 2020- No 4mg 4 mg, Slow Un you injection 4 10-05 IV Push, ity of mg 01:15: 00:15 ONCE, 1 [place] 00 :00 dose, [facility] 10/04/20 at Branch 2015, STAT ondansetron 2020- [...] :00 ONCE, 1 Medical 50 mcg dose, Tue Branch 10/04/20 at 1900, STAT NaCl 0.9% 2020- No 1000mL at 999 Uni vers (NS) bolus 10-04 mL/hr, ity of infusion 23:00: 01:20 1,000 mL, [place] 1,000 mL 00 :00 IV Medical Infusion, Branch ONCE, 1 dose, 10/04/20 at 1800, [place] promethazin Yes [id number] 50mg Insert 1 Univers e 50 mg 6-22 Suppositor ity of suppository 00:00: [place] 00 rectum Medical every 6 Branch (six) hours as needed for Nausea and Vomiting (N/V). ondansetron Yes [id number] 4mg Take 1 [facility] (ZOFRAN 6-22 tablet by ity of ODT) 4 mg 00:00: mouth [place] disintegrat 00 every 8 Medic al ing tablet (eight) Branch hours as needed for Nausea and Vomiting (N/V). promethazin 0 Yes [id number] 50mg Insert 1 Univers e 50 mg 6-22 Suppositor ity of suppository 00:00: y [place] 00 rectum Medical every 6 Branch (six) hours as needed for Nausea and Vomiting (N/V). promethazin 0 Yes [id number] 50mg Insert 1 [facility] e 50 mg 6-22 Suppositor [facility] [place] supp[place] 00:[place] rectum Medical every 6 Branch (six) hours as needed for Nausea and Vomiting (N/V). promethazin 0 Yes [id number] 50mg Insert 1 [facility] e 50 mg 6-22 Suppositor [facility]y of suppository 00:00: [place] rectum Medical every 6 Branch (six) hours as needed for Nausea and Vomiting (N/V). promethazin Yes [id number] 50mg Insert 1 [facility] e 50 mg 6-22 Suppositor ity of suppository 00:00: [place] 00 rectum Medical every 6 Branch (six) hours as needed for Nausea and Vomiting (N/V). promethazin Yes [id number] 50mg Insert 1 [facility] e 50 mg 6-22 Suppositor ity of suppository 00:00: [place] 00 rectum Medical every 6 Branch (six) hours as needed for Nausea and Vomiting (N/V). promethazin Yes [id number] 50mg Insert 1 [facility] e 50 mg 6-22 Suppositor ity of suppository 00:00: [place] 00 rectum Medical every 6 Branch (six) hours as needed for Nausea and Vomiting (N/V). promethazin Yes [id number] 50mg Insert 1 [facility] e 50 mg 6-22 Suppositor ity of suppository 00:00: [place] 00 rectum Medical every 6 Branch (six) hours as needed for Nausea and Vomiting (N/V). promethazin Yes [id number] 50mg Insert 1 [facility] e 50 mg 6-22 Suppositor ity of suppository 00:00: y [place] 00 rectum Medical every 6 Branch (six) hours as needed for Nausea and Vomiting (N/V). promethazin Yes [id number] 50mg Insert 1 [facility] e 50 mg 6-22 Suppositor ity of suppository 00:00: [place] 00 rectum Medical every 6 Branch (six) hours as needed for Nausea and Vomiting (N/V). promethazin Yes [id number] 50mg Insert 1 [facility] e 50 mg 6-22 Suppositor ity of suppository 00:00: [place] 00 rectum Medical every 6 Branch (six) hours as needed for Nausea and Vomiting (N/V). promethazin Yes [id number] 50mg Insert 1 [facility] e 50 mg 6-22 Suppositor ity of suppository 00:00: y [place] 00 rectum Medical every 6 Branch (six) hours as needed for Nausea and Vomiting (N/V). promethazin Yes [id number] 50mg Insert 1 [facility] e 50 mg 6-22 Suppositor ity of suppository 00:00: y [place] 00 rectum Medical every 6 Branch (six) hours as needed for Nausea and Vomiting (N/V). promethazin Yes [id number] 50mg Insert 1 [facility] e 50 mg 6-22 Suppositor ity of suppository 00:00: y [place] 00 rectum Medical every 6 Branch (six) hours as needed for Nausea and Vomiting (N/V). promethazin Yes [id number] 50mg Insert 1 [facility] e 50 mg 6-22 Suppositor ity of suppository 00:00: y [place] 00 rectum Medical every 6 Branch (six) hours as needed for Nausea and Vomiting (N/V). promethazin Yes [id number] 50mg Insert 1 [facility] e 50 mg 6-22 Suppositor ity of suppository 00:00: y [place] 00 rectum Medical every 6 Branch (six) hours as needed for Nausea and Vomiting (N/V). promethazin Yes [id number] 50mg Insert 1 [facility] e 50 mg 6-22 Suppositor ity of suppository 00:00: y [place] 00 rectum Medical every 6 Branch (six) hours as needed for Nausea and Vomiting (N/V). promethazin Yes [id number] 50mg Insert 1 [facility] e 50 mg 6-22 Suppositor ity of suppository 00:00: y [place] 00 rectum Medical every 6 Branch (six) hours as needed for Nausea and Vomiting (N/V). promethazin Yes [id number] 50mg Insert 1 [facility] e 50 mg 6-22 Suppositor ity of suppository 00:00: y [place] 00 rectum Medical every 6 Branch (six) hours as needed for Nausea and Vomiting (N/V). promethazin Yes [id number] 50mg Insert 1 [facility] e 50 mg 6-22 Suppositor ity of suppository 00:00: y into [place] 00 rectum Medical every 6 Branch (six) hours as needed for Nausea and Vomiting (N/V). promethazin Yes [id number] 50mg Insert 1 [facility] e 50 mg 10-04 Suppositor ity of suppository 00:00: y [place] 00 rectum Medical every 6 Branch (six) hours as needed for Nausea and Vomiting (N/V). promethazin 2021- No [id number] 50mg Insert 1 [facility] e 50 mg 10-04 Suppositor ity o f suppository 00:00: 00:00 y into [place] 00 :00 rectum Medical every 6 Branch (six) hours as needed for Nausea and Vomiting (N/V). ondansetron No [id number] 4mg Take 1 [facility] (ZOFRAN 10-04 06-30 tablet by ity of ODT) 4 mg 00:00: 00:00 mouth [place] disintegrat 00 :00 every 8 Medic al ing tablet (eight) Branch hours as needed for Nausea and Vomiting (N/V). dexamethaso No 10mg 10 mg, Uni vers ne 08-05 Intramuscu ity of (DECADRON 14:30: 13:35 lar, ONCE, [place] PHOSPHATE) 00 :00 1 dose, Medica l injection Fri Branch 10 mg 08/05/20 at 0930, STAT diazePAM No 5mg 5 mg, Univers (VALIUM) 08-05 Oral, ity of tablet 5 mg 14:30: 13:36 ONCE, 1 [place] 00 :[place] dose, Fri Medical 08/05/20 at Branch 0930, [place] FENTanyl PF No 50ug 50 mcg, Un you (SUBLIMAZE 08-05 Intramuscu it y of (PF)) 14:30: 13:36 lar, ONCE, [place] injection 00 :00 1 dose, Medical 50 mcg Fri Branch 08/05/20 at 0930, Routine ondansetron No 4mg 4 mg, Univ ers (ZOFRAN-ODT 08-05 Oral, ity of ) 14:30: 13:36 ONCE, 1 [place] disintegrat 00 :00 dose, Fri Med ical ing tablet 08/05/20 at [facility] 4 mg 0930, Routine traZODone Yes 100mg Take 100 Uni vers 100 mg 4-05 mg by ity of tablet 13:30: mouth at [place] [address] bedtime. Medical Branch traZODone Yes 100mg Take 100 Uni vers 100 mg 4-05 mg by ity of tablet 13:30: mouth at [place] [address] bedtime. Medical Branch traZODone 0 Yes 100mg Take 100 Uni vers 100 mg 4-05 mg by ity of tablet 13:30: mouth at [place] [address] bedtime. Medical Branch triamcinolo Yes PRN, [facility] ne 07-18 Starting ity of acetonide 12:07: 07/18/[place] (KENALOG) 00 at 0707, Medica l injection Until Branch Discontinu ed, Routine, Intra-op iohexoL Yes PRN, Univers (OMNIPAQUE 05 Starting ity o f 300-50 mL)) 12:07: 07/18/20 [place] injection 00 at 0707, Medica l Until Branch Discontinu ed, Routine, Intra-op lidocaine Yes PRN, Univers 1% 07-18 Starting ity of (XYLOCAINE) 12:07: [facility] 07/18/20 [place] 10 mg/mL (1 00 at 0707, Medi brandy %) Until Branch injection Discontinu ed, Routine, Intra-op triamcinolo 2020- No PRN, [facility] ne 07-18 Starting ity of acetonide 12:07: 15:30 [facility] 07/18/[place] (KENALOG) 00 :22 at 0707, Medica l injection Until [facility] 07/18/20 at 1030, Routine, Intra-op iohexoL 2020- No PRN, Univers (OMNIPAQUE 07-18-05 Starting ity of 300-50 mL)) 12:07: 15:30 [facility] 07/18/20 [place] injection 00 :22 at 0707, Medica l Until [facility] 07/18/20 at 1030, Routine, Intra-op lidocaine 2020- No PRN, Univers 1% 4- 04-05 Starting ity of (XYLOCAINE) 12:07: 15:30 07/18/20 [place] 10 mg/mL (1 00 :22 at 0707, Medi brandy %) Until Mon Branch injection 07/18/20 at 1030, Routine, Intra-op escitalopra 2020- No 20mg Take 20 mg Univers m oxalate - 04-05 by mouth ity o f (LEXAPRO) 11:43: 00:00 at [place] 20 mg 22 :00 bedtime. Medical tablet Branch divalproex 2020- No 500mg Take 500 U nivers (DEPAKOTE) 4-05 04-05 mg by ity of 500 mg EC 11:43: 00:00 mouth [place] tablet 22 :00 daily. Medical Branch chlordiazeP 2020- No 10mg Take 10 mg Univers OXIDE 10 mg 07-18 04-05 by mouth 3 i ty of capsule 11:43: 00:00 (three) [place] 22 :00 times Medical daily. Branch lithium 2020- No 300mg Take 300 Univ ers carbonate 4-05 04-05 mg by ity of 300 mg 11:43: 00:00 mouth 2 [place] capsule 22 :00 (two) Medical times Branch daily. temazepam 2020- No 15mg Take 15 mg U nivers 15 mg - 04-05 by mouth ity of capsule 11:43: 00:00 at bedtime [place] 22 :00 as needed Medical for Branch Insomnia. ursodioL 2020- No 500mg Take 500 Uni vers 500 mg 4-05 04-05 mg by ity of tablet 11:43: 00:00 mouth 2 [place] 22 :00 (two) Medical times Branch daily. escitalopra 2020- No 20mg Take 20 mg Univers m oxalate - 04-05 by mouth ity o f (LEXAPRO) [...] mouth ity of tablet 11:42: 00:00 daily. [place] 27 :00 Medical Branch carvediloL 2020- No [...] of 400 mg 11:42: 00:00 mouth at [place] tablet 27 :00 bedtime. Medical Branch tiZANidine 2020- No 4mg Take 4 mg U nivers 4 mg 4-05 04-05 by mouth 2 ity of capsule 11:42: 00:00 (two) [place] 27 :00 times Medical daily. Branch meloxicam 2020- No 7.5mg Take 7.5 Un you 7.5 mg 4-05 04-05 mg by ity of tablet 11:42: 00:00 mouth [place] 27 :00 daily. Medical Branch ARIPiprazol 2020- No 10mg Take 10 mg Univers e 10 mg 4-05 04-05 by mouth ity of tablet 11:42: 00:00 daily. [place] 27 :00 Medical Branch carvediloL 2020- No 12.5mg Take 12.5 Univers 12.5 mg 4-05 04-05 mg by ity of tablet 11:42: 00:00 mouth 2 [place] 27 :00 (two) Medical times Branch daily with meals. traZODone Yes 100mg Take 100 Uni vers 100 mg 4-05 mg by ity of tablet 11:28: mouth at [place] 50 bedtime. Medical Branch losartan Yes 100mg 100 mg, Unive rs (COZAAR) 07-08 Oral, ity of tablet 100 14:00: DAILY, [place] mg 00 First dose Medical on Sat [place] 07/08/20 at 0900, Until Discontinu ed, Routine ondansetron 2020- No 4mg 4 mg, Slow Univers (ZOFRAN 07-08 IV Push, ity of (PF)) 03:15: 02:29 ONCE, 1 [place] injection 4 00 :00 dose, [place] Med ical mg 07/07/20 at Branch 2214, [place] morpHINE 2020- No 4mg 4 mg, Slow Un you injection 4 07-08 IV Push, ity of mg 03:15: 02:28 ONCE, 1 [place] 00 :00 dose, [place] Medical 07/07/20 at Branch 2215, STAT morpHINE 2020- No 4mg 4 mg, Slow Un you injection 4 07-08 IV Push, ity of mg 01:45: 01:05 ONCE, 1 [place] 00 :00 dose, [place] Medical 07/07/20 at Branch 204, STAT iohexol 2020- No [id number] 120mL 120 mL, Univers (OMNIPAQUE 07-08 Intravenou it y of 350 01:00: 00:55 s, ONCE, 1 [place] BULK-150 00 :00 dose, [place] Medica l mL) 07/07/20 at [place] injection 2000, 120 mL Routine NaCl 0.9% 2020- No 1000mL at 999 Uni vers (NS) bolus 07-08 mL/hr, ity of infusion 01:00: 02:24 1,000 mL, [place] 1,000 mL 00 :00 IV Medical Infusion, [place] ONCE, 1 dose, [place] 07/07/20 at 1999, STAT ondansetron 2020- No 4mg 4 mg, Slow Univers (ZOFRAN 07-08 IV Push, ity of (PF)) 01:00: 00:25 ONCE, 1 [place] injection 4 00 :00 dose, [place] Med ical mg 07/07/20 at Branch 1999, [place] ondansetron 2021-0 Yes [id number] 4mg Take 1 Univers (ZOFRAN 3-25 tablet by ity of ODT) 4 mg 00:00: mouth [place] disintegrat 00 every 8 Medic al ing tablet (eight) Branch hours as needed for Nausea and Vomiting (N/V). ondansetron 2021-0 Yes [id number] 4mg Take 1 Univers (ZOFRAN 3-25 tablet by ity of ODT) 4 mg 00:00: mouth [place] disintegrat 00 every 8 Medic al ing tablet (eight) Branch hours as needed for Nausea and Vomiting (N/V). ondansetron 202-0 Yes [id number] 4mg Take 1 Univers (ZOFRAN 3-25 tablet by ity of ODT) 4 mg 00:00: mouth [place] disintegrat 00 every 8 Medic al ing tablet (eight) Branch hours as needed for Nausea and Vomiting (N/V). ondansetron 2020-0 Yes [id number] 4mg Take 1 [facility] (ZOFRAN 3-25 tablet by ity of ODT) 4 mg 00:00: mouth [place] disintegrat 00 every 8 Medic al ing tablet (eight) Branch hours as needed for Nausea and Vomiting (N/V). ondansetron 2020-0 Yes [id number] 4mg Take 1 [facility] (ZOFRAN 3-25 tablet by ity of ODT) 4 mg 00:00: mouth [place] disintegrat 00 every 8 Medic al ing tablet (eight) Branch hours as needed for Nausea and Vomiting (N/V). ondansetron 1-0 Yes [id number] 4mg Take 1 Univers (ZOFRAN 3-25 tablet by ity of ODT) 4 mg 00:00: mouth [place] disintegrat 00 every 8 Medic al ing tablet (eight) Branch hours as needed for Nausea and Vomiting (N/V). ondansetron 2021-0 Yes [id number] 4mg Take 1 Univers (ZOFRAN 3-25 tablet by ity of ODT) 4 mg 00:00: mouth [place] disintegrat 00 every 8 Medic al ing tablet (eight) Branch hours as needed for Nausea and Vomiting (N/V). ondansetron 1-0 Yes [id number] 4mg Take 1 Univers (ZOFRAN 3-25 tablet by ity of ODT) 4 mg 00:00: mouth [place] disintegrat 00 every 8 Medic al ing tablet (eight) Branch hours as needed for Nausea and Vomiting (N/V). ondansetron 2021-0 Yes [id number] 4mg Take 1 [facility] (ZOFRAN 3-25 tablet by ity of ODT) 4 mg 00:00: mouth [place] disintegrat 00 every 8 Medic al ing tablet (eight) Branch hours as needed for Nausea and Vomiting (N/V). ondansetron 2021-0 Yes [id number] 4mg Take 1 Univers (ZOFRAN 3-25 tablet by ity of ODT) 4 mg 00:00: mouth [place] disintegrat 00 every 8 Medic al ing tablet (eight) Branch hours as needed for Nausea and Vomiting (N/V). ondansetron 2021-0 Yes [id number] 4mg Take 1 Univers (ZOFRAN 3-25 tablet by ity of ODT) 4 mg 00:00: mouth [place] disintegrat 00 every 8 Medic al ing tablet (eight) Branch hours as needed for Nausea and Vomiting (N/V). ondansetron 2021-0 Yes [id number] 4mg Take 1 Univers (ZOFRAN 3-25 tablet by ity of ODT) 4 mg 00:00: mouth [place] disintegrat 00 every 8 Medic al ing tablet (eight) Branch hours as needed for Nausea and Vomiting (N/V). ondansetron 2021-0 Yes [id number] 4mg Take 1 Univers (ZOFRAN 3-25 tablet by ity of ODT) 4 mg 00:00: mouth [place] disintegrat 00 every 8 Medic al ing tablet (eight) Branch hours as needed for Nausea and Vomiting (N/V). ondansetron 2021-0 Yes [id number] 4mg Take 1 Univers (ZOFRAN 3-25 tablet by ity of ODT) 4 mg 00:00: mouth [place] disintegrat 00 every 8 Medic al ing tablet (eight) Branch hours as needed for Nausea and Vomiting (N/V). ondansetron 2021-0 Yes [id number] 4mg Take 1 Univers (ZOFRAN 3-25 tablet by ity of ODT) 4 mg 00:00: mouth [place] disintegrat 00 every 8 Medic al ing tablet (eight) Branch hours as needed for Nausea and Vomiting (N/V). ondansetron 2021-0 Yes [id number] 4mg Take 1 [facility] (ZOFRAN 3-25 tablet by ity of ODT) 4 mg 00:00: mouth [place] disintegrat 00 every 8 Medic al ing tablet (eight) Branch hours as needed for Nausea and Vomiting (N/V). ondansetron 2020-0 Yes [id number] 4mg Take 1 Univers (ZOFRAN 3-25 tablet by ity of ODT) 4 mg 00:00: mouth [place] disintegrat 00 every 8 Medic al ing tablet (eight) Branch hours as needed for Nausea and Vomiting (N/V). ondansetron 2020-0 Yes [id number] 4mg Take 1 Univers (ZOFRAN 3-25 tablet by ity of ODT) 4 mg 00:00: mouth [place] disintegrat 00 every 8 Medic al ing tablet (eight) Branch hours as needed for Nausea and Vomiting (N/V). ondansetron 2020-0 Yes [id number] 4mg Take 1 Univers (ZOFRAN 3-25 tablet by ity of ODT) 4 mg 00:00: mouth [place] disintegrat 00 every 8 Medic al ing tablet (eight) Branch hours as needed for Nausea and Vomiting (N/V). ondansetron 2020-0 2020- No [id number] 4mg Take 1 Univers (ZOFRAN 3-25 12-06 tablet by ity of ODT) 4 mg 00:00: 00:00 mouth [place] disintegrat 00 :00 every 8 Medic al ing tablet (eight) Branch hours as needed for Nausea and Vomiting (N/V). LOSARTAN 0 Yes 100mg Take 100 Univ [...] 04 (two) Medical times Branch daily. temazepam Yes 15mg Take 15 mg Un you [...] by mouth ity of tablet 13:47: daily. [place] 04 Medical Branch carvediloL 0 Yes 12.5mg [...] 3 it y of capsule 13:47: (three) [place] 04 times Medical daily. Branch meloxicam 2020-0 Yes [...] at [place] 04 bedtime. Medical Branch ARIPiprazol 2020-0 Yes 10mg Take 10 mg Univers e 10 mg 3-22 by mouth ity of tablet 13:47: daily. 04 Medical Branch carvediloL 2020-0 Yes 12.5mg Take 12.5 Univers 12.5 mg 3-22 mg by ity of tablet 13:47: mouth 2 [place] 04 (two) Medical times Branch daily with meals. LOSARTAN 202-0 Yes 100mg Take 100 Univ [...] by ity of tablet 13:47: mouth 2 [place] [address] (two) Medical times Branch daily. traZODone 2020-0 Yes 100mg Take 100 Uni vers 100 mg 3-22 mg by ity of tablet 13:47: mouth at [place] [address] bedtime. Medical Branch ARIPiprazol 2020-0 Yes 10mg Take 10 mg Univers e 10 mg 3-22 by mouth ity of tablet 13:47: daily. [place] [address] Medical Branch carvediloL 2020-0 Yes 12.5mg Take 12.5 Univers 12.5 mg 3-22 mg by ity of tablet 13:47: mouth 2 [place] [address] (two) Medical times Branch daily with meals. [...] Routine, Nausea and Vomiting (N/V), PACU ceFAZolin 2020-0 Yes 1000mg 1,000 mg, U nivers (ANCEF) 3-22 IV ity of 1,000 mg in 12:00: Piggyback, [place] NaCl 0.9% 00 Q8H ABX, Medica l [...] IV Medical Infusion, Branch CONTINUOUS , Starting Sat06/20/20 at 1030, Until Discontinu ed, Routine, PACU [...] 42 (two) Medical times Branch daily. LOSARTAN 0 Yes 100mg Take 100 Univ ers POTASSIUM 3-08 mg by ity of (LOSARTAN 16:25: mouth [place] ORAL) 42 daily. Medical Branch gabapentin Yes 300mg Take 300 Un you (NEURONTIN) 3-08 mg by ity of 300 mg 16:25: mouth 3 [place] capsule 42 (three) Medical times Branch daily. QUEtiapine 0 Yes 400mg Take 400 Un you (SEROQUEL) 3-08 mg by ity of 400 mg 16:25: mouth at [place] tablet 42 bedtime. Medical Branch escitalopra Yes 20mg Take 20 mg Univers m oxalate 3-08 by mouth ity of (LEXAPRO) 16:25: at [place] 20 mg 42 bedtime. Medical tablet Branch divalproex Yes 500mg Take 500 Un you (DEPAKOTE) 3-08 mg by ity of 500 mg EC 16:25: mouth [place] tablet 42 daily. Medical Branch tiZANidine Yes 4mg Take 4 mg Un you 4 mg 3-08 by mouth 2 ity of capsule 16:25: (two) [place] 42 times Medical daily. Branch chlordiazeP 2020-0 Yes 10mg Take 10 mg Univers OXIDE 10 mg 3-08 by mouth 3 it y of capsule 16:25: (three) [place] 42 times Medical daily. Branch meloxicam Yes 7.5mg Take 7.5 Uni vers 7.5 mg 3-08 mg by ity of tablet 16:25: mouth [place] 42 daily. Medical Branch lithium 2021-0 Yes 300mg Take 300 Unive rs carbonate [...] 42 (two) Medical times Branch daily. temazepam 2021-0 Yes 15mg Take 15 mg Un you 15 mg 3-08 by mouth ity of capsule 16:25: at bedtime [place] 42 as needed Medical for Branch Insomnia. ursodioL Yes 500mg Take 500 Univ ers 500 mg 3-08 mg by ity of tablet 16:25: mouth 2 [place] 42 (two) Medical times Branch daily. ondansetron Yes 4mg 4 mg, Slow Univers (ZOFRAN 308 IV Push, ity of (PF)) 16:19: PRN, 1 [place] injection 4 59 dose, Medical mg Starting Branch 06/20/20 at 1019, Until Discontinu ed, Routine, Nausea and Vomiting (N/V), PACU triamcinolo Yes PRN, Univer s ne 308 Starting ity of acetonide 14:10: Sat06/20/20 [place] (KENALOG) 00 at 0810, Medica l injection Until Branch Discontinu ed, Routine, Intra-op iohexoL Yes PRN, Univers (OMNIPAQUE 08 Starting ity o f 300-50 mL)) 14:10: Sat06/20/20 [place] injection 00 at 0810, Medica l Until Branch Discontinu ed, Routine, Intra-op bupivacaine Yes PRN, Univer s (preserv 08 Starting [...] [place] 00 :42 PROCEDURE, Medical Starting Branch Sat06/20/20 at 0805, Until Sat06/20/20 at 0812, Routine, Intra-op lactated 2020- No IV Univers ringers IV 3-08 03-08 Infusion, ity of infusion 14:03: 14:12 CONTINUOUS [place] 00 :42 PRN, Medical Starting Branch Sat06/20/20 at 0803, Until Sat06/20/20 at 0812, Routine, Intra-op lactated 2020- No 1000mL at 42 Unive rs ringers IV 3-08 03-08 mL/hr, ity of infusion 13:00: 13:17 1,000 mL, [place] 1,000 mL 00 :00 IV Medical Infusion, Branch ONCE, 1 dose, Sat06/20/20 at 0700, Routine, DSU Pre-op LOSARTAN 0 Yes 100mg Take 100 Univ ers POTASSIUM 3-08 mg by ity of (LOSARTAN 12:29: mouth [place] ORAL) 33 daily. Medical Branch gabapentin Yes 300mg Take 300 Un you (NEURONTIN) 3-08 mg by ity of 300 mg 12:29: mouth 3 [place] capsule 33 (three) Medical times Branch daily. QUEtiapine Yes 400mg Take 400 Un you (SEROQUEL) 3-08 mg by ity of 400 mg 12:29: mouth at [place] tablet 33 bedtime. Medical Branch escitalopra Yes 20mg Take 20 mg Univers m oxalate 3-08 by mouth ity of (LEXAPRO) 12:29: at [place] 20 mg 33 bedtime. Medical tablet Branch divalproex Yes 500mg Take 500 Un you (DEPAKOTE) [...] [place] 33 times Medical daily. Branch meloxicam Yes 7.5mg [...] as needed Medical for Branch Insomnia. ursodioL 202-0 Yes 500mg Take 500 Univ ers 500 mg 3-08 mg by ity of tablet 12:29: mouth 2 [place] 33 (two) Medical times Branch daily. LOSARTAN 202-0 [...] 56 (two) Medical times Branch daily. LOSARTAN 2021-0 [...] [place] tablet 56 bedtime. Medical Branch escitalopra 0 Yes 20mg [...] mouth [place] 56 daily. Medical Branch lithium 0 Yes [...] 56 (two) Medical times Branch daily. chlordiazeP 2020-0 Yes 10mg Take 10 mg Univers OXIDE 10 mg 3-05 by mouth 3 it y of capsule 16:05: (three) [place] 19 times Medical daily. Branch chlordiazeP 0 Yes 10mg Take 10 mg Univers OXIDE 10 mg 3-05 by mouth 3 it y of capsule 16:05: (three) [place] 19 times Medical daily. Branch chlordiazeP 0 Yes 10mg Take 10 mg Univers OXIDE 10 mg 3-05 by mouth 3 it y of capsule 16:05: (three) [place] 19 times Medical daily. Branch butalbital- 0 2020- No 1{tbl} 1 tablet, Univers acetaminoph [...] injection 05/06/20 at Bran ch 10 mg 1815, STAT diphenhydrA 2020- No 25mg 25 mg, [...] 1000mL at 999 Uni vers (NS) bolus 05-06- mL/hr, ity of infusion 21:45: 00:30 1,000 mL, [place] 1,000 mL 00 :00 IV Medical Infusion, Branch ONCE, 1 dose, 05/06/20 at 1545, [place] butalbital- Yes [id number] 1{tbl} Take 1 Univers acetaminoph 1-22 tablet by ity of en-caff 00:00: mouth [place] 50-325-40 00 every 6 Medical mg tablet (six) Branch hours as needed for Pain (scale 7-10) or Other (headache) . butalbital- Yes [id number] 1{tbl} Take 1 [facility] acetaminoph 1-22 tablet by ity of en-caff 00:00: mouth [place] 50-325-40 00 every 6 Medical mg tablet (six) Branch hours as needed for Pain (scale 7-10) or Other (headache) . butalbital- Yes [id number] 1{tbl} Take 1 [facility] acetaminoph 1-22 tablet by ity of en-caff 00:00: mouth [place] 50-325-40 00 every 6 Medical mg tablet (six) Branch hours as needed for Pain (scale 7-10) or Other (headache) . butalbital- Yes [id number] 1{tbl} Take 1 [facility] acetaminoph 1-22 tablet by ity of en-caff 00:00: mouth [place] 50-325-40 00 every 6 Medical mg tablet (six) Branch hours as needed for Pain (scale 7-10) or Other (headache) . butalbital- Yes [id number] 1{tbl} Take 1 [facility] acetaminoph 1-22 tablet by ity of en-caff 00:00: mouth [place] 50-325-40 00 every 6 Medical mg tablet (six) Branch hours as needed for Pain (scale 7-10) or Other (headache) . butalbital Yes [id number] 1{tbl} Take 1 [facility] acetaminoph 1-22 tablet by ity of en-caff 00:00: mouth [place] 50-325-40 00 every 6 Medical mg tablet (six) Branch hours as needed for Pain (scale 7-10) or Other (headache) . butalbital Yes [id number] 1{tbl} Take 1 [facility] acetaminoph 1-22 tablet by ity of en-caff 00:00: mouth [place] 50-325-40 00 every 6 Medical mg tablet (six) Branch hours as needed for Pain (scale 7-10) or Other (headache) . butalbital- Yes [id number] 1{tbl} Take 1 [facility] acetaminoph 1-22 tablet by ity of en-caff 00:00: mouth [place] 50-325-40 00 every 6 Medical mg tablet (six) Branch hours as needed for Pain (scale 7-10) or Other (headache) . butalbital- Yes [id number] 1{tbl} Take 1 [facility] acetaminoph 1-22 tablet by ity of en-caff 00:00: mouth [place] 50-325-40 00 every 6 Medical mg tablet (six) Branch hours as needed for Pain (scale 7-10) or Other (headache) . butalbital- Yes [id number] 1{tbl} Take 1 [facility] acetaminoph 1-22 tablet by ity of en-caff 00:00: mouth [place] 50-325-40 00 every 6 Medical mg tablet (six) Branch hours as needed for Pain (scale 7-10) or Other (headache) . butalbital- Yes [id number] 1{tbl} Take 1 [facility] acetaminoph 1-22 tablet by ity of en-caff 00:00: mouth [place] 50-325-40 00 every 6 Medical mg tablet (six) Branch hours as needed for Pain (scale 7-10) or Other (headache) . butalbital- Yes [id number] 1{tbl} Take 1 [facility] acetaminoph 1-22 tablet by ity of en-caff 00:00: mouth [place] 50-325-40 00 every 6 Medical mg tablet (six) Branch hours as needed for Pain (scale 7-10) or Other (headache) . butalbital- Yes [id number] 1{tbl} Take 1 [facility] acetaminoph 1-22 tablet by ity of en-caff 00:00: mouth [place] 50-325-40 00 every 6 Medical mg tablet (six) Branch hours as needed for Pain (scale 7-10) or Other (headache) . butalbital- 2020- No [id number] 1{tbl} Take 1 [facility] acetaminoph 1-22 04-05 tablet by it y of en-caff 00:00: 00:00 mouth [place] 50-325-40 00 :00 every 6 Medical mg tablet (six) Branch hours as needed for Pain (scale 7-10) or Other (headache) . butalbital- 2020- No [id number] 1{tbl} Take 1 [facility] acetaminoph 1-22 04-05 tablet by it y of en-caff 00:00: 00:00 mouth [place] 50-325-40 00 :00 every 6 Medical mg tablet (six) Branch hours as needed for Pain (scale 7-10) or Other (headache) . FENTanyl PF 2019-04 2020- No 75ug 75 mcg, Un you (SUBLIMAZE 2-12 12-12 Slow IV ity o f (PF)) 08:45: [...] ity of mg 06:15: 05:09 ONCE, 1 [place] 00 :00 dose, Sat Medical 03/26/20 Branch at 0015, STAT pantoprazol [...] ity of mg 04:45: 03:40 ONCE, 1 [place] 00 :00 dose, Fri Medical 03/25/20 Branch at 2245, STAT traMADoL [...] 7-10). Indication s: acute pain traMADoL 2019-04 No [id number] 50mg Take 1 Univer s (ULTRAM) 50 2-12 04-05 tablet by it y of mg tablet 00:00: 00:00 mouth [place] 00 :00 every 6 Medical (six) Branch hours as needed for Pain (scale 7-10). Indication s: acute pain traMADoL 2019-04- No [id number] 50mg Take 1 Univer s (ULTRAM) 50 05-27-05 tablet by it y of mg tablet 00:00: 00:00 mouth [place] 00 :00 every 6 Medical (six) Branch hours as needed for Pain (scale 7-10). Indication s: acute pain erythromyci 2019-04- No [id number] .[id number][in_u Place 0.5 Univers n 5 mg/gram 05-27 [id number] s] Inches in ity of (0.5 %) [...] 10 (three) Medical times Branch daily. QUEtiapine 2019-04 Yes 400mg Take 400 Un you (SEROQUEL) [...] 10 (three) Medical times Branch daily. QUEtiapine 2019-04 Yes 400mg Take 400 Un you (SEROQUEL) [...] mg 10 bedtime. Medical tablet Branch divalproex 2020 Yes 500mg Take 500 Un you (DEPAKOTE) [...] [place] tablet 10 daily. Medical Branch tiZANidine 2019- Yes 4mg Take 4 mg Un you 4 mg 0-26 by mouth 2 ity of capsule 21:14: (two) [place] 10 times Medical daily. Branch chlordiazeP 2019- Yes 10mg Take 10 mg Univers OXIDE 10 mg 0-26 by mouth 3 it y of capsule 21:14: (three) [place] 10 times Medical daily. Branch meloxicam 2019- Yes 7.5mg Take 7.5 Uni vers 7.5 [...] 10 (two) Medical times Branch daily. divalproex 2020- Yes 500mg Take 500 Un you (DEPAKOTE) 0-26 mg by ity of 500 mg EC 21:14: mouth [place] tablet 10 daily. Medical Branch divalproex 2019- Yes 500mg Take 500 Un you (DEPAKOTE) 0-26 mg by ity of 500 mg EC 21:14: mouth [place] tablet 10 daily. Medical Branch divalproex 2020- Yes 500mg Take 500 Un you (DEPAKOTE) 0-26 mg by ity of 500 mg EC 21:14: mouth [place] tablet 10 daily. Medical Branch LORazepam 2020- 2020- No 1mg 1 mg, Slow U nivers (ATIVAN) 0-26 10-26 IV Push, ity of injection 1 13:45: 13:01 ONCE, 1 [place] mg 00 :00 dose, Mon Medical 02/08/20 Branch at 0845, Routine amLODIPine 2019-04 Yes [id number] 10mg Take 1 [facility] 10 mg 0-26 tablet by ity of tablet 00:00: mouth [place] 00 daily. Medical Branch hydrALAZINE 2019-04 Yes [id number] 50mg Take 1 [facility] 50 mg 0-26 tablet by ity of tablet 00:00: mouth [place] 00 every 8 Medical (eight) Branch hours. aspirin 81 2019-04 Yes [id number] 81mg Take 1 [facility] mg chewable 0-26 tablet by ity of tablet 00:00: mouth [place] 00 daily. Medical Branch amLODIPine 2019-04 Yes [id number] 10mg Take 1 [facility] 10 mg 0-26 tablet by ity of tablet 00:00: mouth [place] 00 daily. Medical Branch hydrALAZINE 2019-04 Yes [id number] 50mg Take 1 [facility] 50 mg 0-26 tablet by ity of tablet 00:00: mouth [place] 00 every 8 Medical (eight) Branch hours. aspirin 81 2019-04 Yes [id number] 81mg Take 1 [facility] mg chewable 0-26 tablet by ity of tablet 00:00: mouth [place] 00 daily. Medical Branch amLODIPine 2019-04 Yes [id number] 10mg Take 1 [facility] 10 mg 0-26 tablet by ity of tablet 00:00: mouth [place] 00 daily. Medical Branch hydrALAZINE 2019-04 Yes [id number] 50mg Take 1 [facility] 50 mg 0-26 tablet by ity of tablet 00:00: mouth [place] 00 every 8 Medical (eight) Branch hours. aspirin 81 2019-04 Yes [id number] 81mg Take 1 [facility] mg chewable 0-26 tablet by ity of tablet 00:00: mouth [place] 00 daily. Medical Branch amLODIPine 2019-04 Yes [id number] 10mg Take 1 [facility] 10 mg 0-26 tablet by ity of tablet 00:00: mouth [place] 00 daily. Medical Branch hydrALAZINE 2019- Yes [id number] 50mg Take 1 [facility] 50 mg 0-26 tablet by ity of tablet 00:00: mouth [place] 00 every 8 Medical (eight) Branch hours. aspirin 81 2019- Yes [id number] 81mg Take 1 [facility] mg chewable 0-26 tablet by ity of tablet 00:00: mouth [place] 00 daily. Medical Branch amLODIPine 2019- Yes [id number] 10mg Take 1 [facility] 10 mg 0-26 tablet by ity of tablet 00:00: mouth [place] 00 daily. Medical Branch hydrALAZINE 2019-04 Yes [id number] 50mg Take 1 [facility] 50 mg 0-26 tablet by ity of tablet 00:00: mouth [place] 00 every 8 Medical (eight) Branch hours. aspirin 81 2019-04 Yes [id number] 81mg Take 1 [facility] mg chewable 0-26 tablet by ity of tablet 00:00: mouth [place] 00 daily. Medical Branch amLODIPine 2019-04 Yes [id number] 10mg Take 1 [facility] 10 mg 0-26 tablet by ity of tablet 00:00: mouth [place] 00 daily. Medical Branch hydrALAZINE 2019-04 Yes [id number] 50mg Take 1 [facility] 50 mg 0-26 tablet by ity of tablet 00:00: mouth [place] 00 every 8 Medical (eight) Branch hours. aspirin 81 2019-04 Yes [id number] 81mg Take 1 [facility] mg chewable 0-26 tablet by ity of tablet 00:00: mouth [place] 00 daily. Medical Branch amLODIPine 2019-04 Yes [id number] 10mg Take 1 [facility] 10 mg 0-26 tablet by ity of tablet 00:00: mouth [place] 00 daily. Medical Branch hydrALAZINE 2019-04 Yes [id number] 50mg Take 1 [facility] 50 mg 0-26 tablet by ity of tablet 00:00: mouth [place] 00 every 8 Medical (eight) Branch hours. aspirin 81 2019-04 Yes [id number] 81mg Take 1 [facility] mg chewable 0-26 tablet by ity of tablet 00:00: mouth [place] 00 daily. Medical Branch amLODIPine 2019-04 Yes [id number] 10mg Take 1 [facility] 10 mg 0-26 tablet by ity of tablet 00:00: mouth [place] 00 daily. Medical Branch hydrALAZINE 2019-04 Yes [id number] 50mg Take 1 [facility] 50 mg 0-26 tablet by ity of tablet 00:00: mouth [place] 00 every 8 Medical (eight) Branch hours. aspirin 81 2019-1 Yes [id number] 81mg Take 1 [facility] mg chewable 0-26 tablet by ity of tablet 00:00: mouth [place] 00 daily. Medical Branch amLODIPine 2019- Yes [id number] 10mg Take 1 [facility] 10 mg 0-26 tablet by ity of tablet 00:00: mouth [place] 00 daily. Medical Branch hydrALAZINE 2019- Yes [id number] 50mg Take 1 [facility] 50 mg 0-26 tablet by ity of tablet 00:00: mouth [place] 00 every 8 Medical (eight) Branch hours. aspirin 81 2019- Yes [id number] 81mg Take 1 [facility] mg chewable 0-26 tablet by ity of tablet 00:00: mouth [place] 00 daily. Medical Branch amLODIPine 2019- Yes [id number] 10mg Take 1 [facility] 10 mg 0-26 tablet by ity of tablet 00:00: mouth [place] 00 daily. Medical Branch hydrALAZINE 2019- Yes [id number] 50mg Take 1 [facility] 50 mg 0-26 tablet by ity of tablet 00:00: mouth [place] 00 every 8 Medical (eight) Branch hours. aspirin 81 2019-04 Yes [id number] 81mg Take 1 [facility] mg chewable 0-26 tablet by ity of tablet 00:00: mouth [place] 00 daily. Medical Branch amLODIPine 2019- Yes [id number] 10mg Take 1 [facility] 10 mg 0-26 tablet by ity of tablet 00:00: mouth [place] 00 daily. Medical Branch hydrALAZINE 2019- Yes [id number] 50mg Take 1 [facility] 50 mg 0-26 tablet by ity of tablet 00:00: mouth [place] 00 every 8 Medical (eight) Branch hours. aspirin 81 2019- Yes [id number] 81mg Take 1 [facility] mg chewable 0-26 tablet by ity of tablet 00:00: mouth [place] 00 daily. Medical Branch amLODIPine 2019- Yes [id number] 10mg Take 1 [facility] 10 mg 0-26 tablet by ity of tablet 00:00: mouth [place] 00 daily. Medical Branch hydrALAZINE 2019- Yes [id number] 50mg Take 1 [facility] 50 mg 0-26 tablet by ity of tablet 00:00: mouth [place] 00 every 8 Medical (eight) Branch hours. aspirin 81 2019- Yes [id number] 81mg Take 1 [facility] mg chewable 0-26 tablet by ity of tablet 00:00: mouth [place] 00 daily. Medical Branch amLODIPine 2019- Yes [id number] 10mg Take 1 [facility] 10 mg 0-26 tablet by ity of tablet 00:00: mouth [place] 00 daily. Medical Branch hydrALAZINE 2019- Yes [id number] 50mg Take 1 [facility] 50 mg 0-26 tablet by ity of tablet 00:00: mouth [place] 00 every 8 Medical (eight) Branch hours. aspirin 81 2019- Yes [id number] 81mg Take 1 [facility] mg chewable 0-26 tablet by ity of tablet 00:00: mouth [place] 00 daily. Medical Branch amLODIPine 2019-04 Yes [id number] 10mg Take 1 [facility] 10 mg 0-26 tablet by ity of tablet 00:00: mouth [place] 00 daily. Medical Branch hydrALAZINE 2019- Yes [id number] 50mg Take 1 [facility] 50 mg 0-26 tablet by ity of tablet 00:00: mouth [place] 00 every 8 Medical (eight) Branch hours. aspirin 81 2019-04 Yes [id number] 81mg Take 1 [facility] mg chewable 0-26 tablet by ity of tablet 00:00: mouth [place] 00 daily. Medical Branch amLODIPine 2019-04 Yes [id number] 10mg Take 1 [facility] 10 mg 0-26 tablet by ity of tablet 00:00: mouth [place] 00 daily. Medical Branch hydrALAZINE 2019- Yes [id number] 50mg Take 1 [facility] 50 mg 0-26 tablet by ity of tablet 00:00: mouth [place] 00 every 8 Medical (eight) Branch hours. aspirin 81 2019- Yes [id number] 81mg Take 1 [facility] mg chewable 0-26 tablet by ity of tablet 00:00: mouth [place] 00 daily. Medical Branch amLODIPine 2019- Yes [id number] 10mg Take 1 Univers 10 mg 0-26 tablet by ity of tablet 00:00: mouth [place] 00 daily. Medical Branch hydrALAZINE 2019- Yes [id number] 50mg Take 1 [facility] 50 mg 0-26 tablet by ity of tablet 00:00: mouth [place] 00 every 8 Medical (eight) Branch hours. aspirin 81 2019-04 Yes [id number] 81mg Take 1 Univers mg chewable 0-26 tablet by ity of tablet 00:00: mouth [place] 00 daily. Medical Branch amLODIPine 2019-04 Yes [id number] 10mg Take 1 Univers 10 mg 0-26 tablet by ity of tablet 00:00: mouth [place] 00 daily. Medical Branch hydrALAZINE 2019-04 Yes [id number] 50mg Take 1 Univers 50 mg 0-26 tablet by ity of tablet 00:00: mouth [place] 00 every 8 Medical (eight) Branch hours. aspirin 81 2019-04 Yes [id number] 81mg Take 1 [facility] mg chewable 0-26 tablet by ity of tablet 00:00: mouth [place] 00 daily. Medical Branch amLODIPine 2019-04 Yes [id number] 10mg Take 1 Univers 10 mg 0-26 tablet by ity of tablet 00:00: mouth [place] 00 daily. Medical Branch hydrALAZINE 2019-04 Yes [id number] 50mg Take 1 Univers 50 mg 0-26 tablet by ity of tablet 00:00: mouth [place] 00 every 8 Medical (eight) Branch hours. aspirin 81 2019-04 Yes [id number] 81mg Take 1 Univers mg chewable 0-26 tablet by ity of tablet 00:00: mouth [place] 00 daily. Medical Branch amLODIPine 2019-04- No [id number] 10mg Take 1 Univers 10 mg 0-26 04-05 tablet by ity of tablet 00:00: 00:00 mouth [place] 00 :00 daily. Medical Branch hydrALAZINE 2019-04- No [id number] 50mg Take 1 Univers 50 mg 0-26 04-05 tablet by ity of tablet 00:00: 00:00 mouth [place] 00 :00 every 8 Medical (eight) Branch hours. aspirin 81 2019-04- No [id number] 81mg Take 1 Univers mg chewable 0-26 04-05 tablet by it y of tablet 00:00: 00:00 mouth [place] 00 :00 daily. Medical Branch amLODIPine 2019-04- No [id number] 10mg Take 1 Univers 10 mg 0-26 04-05 tablet by ity of tablet 00:00: 00:00 mouth [place] 00 :00 daily. Medical Branch hydrALAZINE 2019-04- No [id number] 50mg Take 1 Univers 50 mg 0-26 04-05 tablet by ity of tablet 00:00: 00:00 mouth [place] 00 :00 every 8 Medical (eight) Branch hours. aspirin 81 2019-04- No [id number] 81mg Take 1 [facility] mg chewable 0-26 [...] 1 [place] mg 00 :00 dose, [facility] 02/05/20 Branch at 1200, Routine lipase-prot 2019-04 Yes 3{capsu 3 capsule, Univers ease-amylas 0-23 le} Oral, TID ity of e (CREON) 14:00: MEALS, [place] 12,000-38,0 00 First dose Me dical 00 -60,000 on Fri Branch unit 02/05/20 capsule 3 at 0900, capsule Until Discontinu ed, Routine ondansetron 2019-04 2020- No 4mg 4 mg, Univ ers (ZOFRAN) 0-22 10-22 Oral, ity of tablet 4 mg 22:30: 22:42 ONCE, 1 [place] 00 :00 dose, [place] 02/04/20 Branch at 1730, Routine ondansetron 2019-04 Yes 4mg 4 mg, Unive rs (ZOFRAN) 0 Oral, ity of tablet 4 mg 21:25: Q6HPRN, [place] 39 Starting Medical [facility] Branch 02/04/20 at 1625, Until Discontinu ed, Routine, Nausea and Vomiting (N/V) ondansetron 2019-04 No 4mg 4 mg, Slow Univers (ZOFRAN 02-03 IV Push, ity of (PF)) 15:15: 21:26 Q8HPRN, [place] injection 4 54 :52 Starting Medi brandy mg [facility] Branch 02/04/20 at 1015, Until [facility] 02/04/20 at 1626, Routine, Nausea and Vomiting (N/V) LORazepam 2019-04- No 1mg 1 mg, Univer s (ATIVAN) 02-03 Oral, ity of tablet 1 mg 14:30: 23:16 ONCE, 1 [place] 00 :00 dose, [facility] 02/04/20 Branch at 0930, Routine enoxaparin 2019-04 Yes 40mg 40 mg, Unive rs (LOVENOX) Subcutaneo ity of injection 14:00: us, DAILY, [place] 40 mg 00 First dose Medical on [facility] Branch 02/04/20 at 0900, Until Discontinu ed, Routine divalproex 2019-04 Yes 500mg 500 mg, Uni vers (DEPAKOTE) Oral, ity of EC tablet 14:00: DAILY, [place] 500 mg 00 First dose Medical on [facility] Branch 02/04/20 at 0900, Until Discontinu ed, Routine pantoprazol 2019-04 Yes 40mg 40 mg, Univ ers e Oral, BID, ity of (PROTONIX) 13:00: First dose [place] EC tablet 00 on [facility] Medical 40 mg 02/04/20 Branch at 0800, Until Discontinu ed, Routine lactulose 2019-04 Yes 15mL 15 mL, Univer s (CEPHULAC) 0 Oral, BID, ity of solution 15 13:00: First dose [place] mL 00 (after Medical last Branch modificati on) on [facility] 02/04/20 at 0800, Until Discontinu ed, Routine traMADoL 2019-04 Yes 50mg 50 mg, Univers (ULTRAM) 0-22 Oral, ity of tablet 50 03:22: Q8HPRN, [place] mg 09 Starting Medical [facility] Branch 02/03/20 at 2222, Until Discontinu ed, Routine, Pain (scale 4-6) lactated 2019-04 2020- No 1000mL at 100 Univ ers ringers IV 0-22 10-25 mL/hr, ity of infusion 02:15: 23:20 1,000 mL, [place] 1,000 mL 00 :45 IV Medical Infusion, Branch CONTINUOUS , Starting [facility] 02/03/20 at 2115, Until 02/07/20 at 1820, Routine docusate 2019-04 Yes 100mg 100 mg, Unive rs (COLACE) 0-22 Oral, ity of capsule 100 02:01: BIDPRN, [place] mg 06 Starting Medical [facility] Branch 02/03/20 at 2101, Until Discontinu ed, Routine, Constipati on acetaminoph 2019-04 Yes 650mg 650 mg, Un you en 0 Oral, ity of (TYLENOL) 01:58: Q8HPRN, [place] tablet 650 47 Starting Medic al mg [facility] Branch 02/03/20 at 2058, Until Discontinu ed, Routine, Pain (scale 1-3) ondansetron 2019-04- No 4mg 4 mg, Univ ers (ZOFRAN) 0-22 10-22 Oral, ity of tablet 4 mg 01:52: 21:19 Q8HPRN, [place] 29 :27 Starting Medical [facility] Branch 02/03/20 at 2052, Until [place] 02/04/20 at 1619, Routine, Nausea and Vomiting (N/V) sennosides 2019-04 Yes 8.6mg 8.6 mg, Uni vers (SENOKOT) 0- Oral, ity of tablet 8.6 16:30: DAILY, [place] mg 00 First dose Medical on Wed Branch 02/03/20 at 1130, Until Discontinu ed, Routine magnesium 2019-04 Yes 400mg 400 mg, Univ ers oxide 0-21 Oral, ity of (MAG-OX 16:30: DAILY, [place] 400) tablet 00 First dose Me dical 400 mg on Wed Branch 02/03/20 at 1130, Until Discontinu ed, Routine docusate 2019-04 2020- No 100mg 100 mg, Univ ers (COLACE) 0-02-03 Oral, ity of capsule 100 16:30: 02:14 DAILY, [place] mg 00 :35 First dose Medical on Sat02/03/20 at 1130, Until Discontinu ed, Routine lactulose 2019-04 2020- No 15mL 15 mL, Unive rs (CEPHULAC) 0- 10-21 Oral, QID, it y of solution 15 03:30: 21:01 First dose [place] mL 00 :02 on [facility] 02/02/20 Branch at 2230, Until Discontinu ed, Routine amLODIPine 2019-04 Yes 10mg 10 mg, Unive rs (NORVASC) 0-20 Oral, ity of tablet 10 22:30: DAILY, [place] mg 00 First dose Medical on Sat02/02/20 at 1730, Until Discontinu ed, Routine labetaloL 2019-04 Yes 10mg 10 mg, Univer s (NORMODYNE) 0-20 Slow IV ity o f injection 22:18: Push, [place] 10 mg 17 Q4HPRN, Medical Starting Branch Sat02/02/20 at 1718, Until Discontinu ed, Routine, sbp > 180 or dbp > 110. hold if HR < 60 D5W 0.45% 2019-04- No IV Univers NaCl 0-02-02 Infusion, ity of (1/2NS) 1 L 20:15: 16:24 at 50 [place] + KCL 20 00 :26 mL/hr, Medical mEq CONTINUOUS Branch , Starting Sat02/02/20 at 1515, Until Sat02/03/20 at 1124, Routine losartan 2019-04 Yes 100mg 100 mg, Unive rs (COZAAR) 0-20 Oral, ity of tablet 100 19:15: DAILY, [place] mg 00 First dose Medical on Sat02/02/20 at 1415, Until Discontinu ed, Routine lipase-prot 2019-04 2020- No 1{capsu 1 capsule, Univers ease-amylas 0-20 -23 le} Oral, TID it y of e 19:15: 13:49 MEALS, [place] (PANCREAZE) 00 :19 First dose Me dical 16,800-56,8 on Sat Branch 00- 98,400 02/02/20 unit at 1415, capsule 1 Until capsule Discontinu ed diltiazem 2019-04- No 5mg 5 mg, Slow U nivers [...] 1 [place] mg 00 :00 dose, [facility] 02/02/20 Branch at 0100, Routine D5W 0.45% 2019-04- No 1000mL at 150 Uni vers NaCl 0-20 10-20 mL/hr, ity of (1/2NS) IV 00:15: 19:02 1,000 mL, [place] infusion 00 :15 IV Medical 1,000 mL Infusion, Branch CONTINUOUS , Starting Sat02/01/20 at 1915, Until Sat02/02/20 at 1402, Routine vancomycin 2019-04- No 15mg/kg 1,250 mg Univers 1250 mg in 0-20 10-20 (rounded ity of NS 250 mL [...] 10 mg 41 Q4HPRN, Medical Starting Branch [facility] 02/01/20 at 1545, Until Discontinu ed, STAT, SBP > 180, DBP > 120
Ind ication: Hypertensi ve Emergency NaCl 0.45% 2019-04 No 1000mL at 150 Un you (1/2NS) IV 0- 10-20 mL/hr, ity of infusion 18:45: 06:44 1,000 mL, [place] 1,000 mL 00 :00 IV Medical Infusion, Branch ONCE, 1 dose, Sat02/01/20 at 1345, Routine cyanocobala 2019-04 No 1000ug 1,000 mcg, Univers min 10-24 Subcutaneo ity of (VITAMIN 15:30: 14:03 us, Q24H, [place] B12) 00 :58 First dose Medical injection on [facility] Branch 1,000 mcg 02/01/20 at 1030, Until Discontinu ed, Routine NaCl 0.45% 2019-04 No 1000mL at 100 Un you (1/2NS) IV 0-31 01-19 mL/hr, ity of infusion 15:30: 17:38 1,000 mL, [place] 1,000 mL 00 :01 IV Medical Infusion, Branch CONTINUOUS , Starting Sat02/01/20 at 1030, Until Sat02/01/20 at 1238, Routine enoxaparin 2019-04 No 30mg 30 mg, Univ ers (LOVENOX) 22 Subcutaneo ity of injection 14:00: 02:09 us, DAILY, [place] 30 mg 00 :34 First dose Medical on [facility] Branch 02/01/20 at 0900, Until Discontinu ed, Routine NaCl 0.9% 2019-04- No 2000mL at 125 Uni vers (NS) IV -19 mL/hr, IV ity of infusion 03:30: 03:17 Infusion, [place] 2,000 mL 00 :00 ONCE, 1 Medical dose, [place] Branch 01/31/20 at 2230, Routine thiamine 2019-04- No 100mg IV Univers (VITAMIN 01-31 Piggyback, ity of B1) 100 mg 22:30: 14:59 DAILY, 2 [place] in NaCl 00 :00 doses, Medical 0.9% (NS) First dose Bran ch piggyback on [place] 01/31/20 at 1730, Last dose on [facility] 02/01/20 at 0900, 50 mL lactated 2019-04 2020- No 1000mL at 125 Univ ers ringers IV 0-18 10-19 mL/hr, ity of infusion 22:30: 02:29 1,000 mL, [place] 1,000 mL 00 :41 IV Medical Infusion, Branch CONTINUOUS , Starting 01/31/20 at 1730, Until 01/31/20 at 2129, Routine NaCl 0.9% 2019-04 2020- No 30mL/kg at 999 Un you (NS) bolus 0-18 10-18 mL/hr, ity of infusion 15:45: 16:04 2,730 mL [place] 2,730 mL 00 :00 (30 mL/kg Medica l ?91 kg), Branch IV Infusion, ONCE, 1 dose, [place] 01/31/20 at 1045, [place] haloperidol 2020- No 2.5mg 2.5 mg, U nivers lactate 12-17 Intravenou ity o f (HALDOL) 23:45: 22:50 s, ONCE, 1 [place] injection 00 :00 dose, Fri Medic al 2.5 mg 12/18/19 at Branch 1845, STAT FENTanyl PF 2019- No 50ug 50 mcg, Un you (SUBLIMAZE 12-17 Slow IV ity o f (PF)) 23:45: 22:50 Push, [place] injection 00 :00 ONCE, 1 Medical 50 mcg dose, Fri [place] 12/18/19 at 1845, Routine iohexol 2019- 2020- No 120mL 120 mL, Unive rs (OMNIPAQUE 12-17 Intravenou it y of 350 22:01: 22:02 s, ONCE, 1 [place] BULK-100 00 :00 dose, Fri Medica l mL) 12/18/19 at [place] injection 1715, 120 mL Routine proMETHazin 2019- 2020- No 25mg 25 mg, IV Univers e 12-17 Piggyback, ity of (PHENERGAN) 21:30: 20:40 ONCE, 1 [place] 25 mg in 00 :00 dose, Fri Medica l NaCl 0.9% 12/18/19 at [facility] h (NS) 50 mL 1630, 50 piggyback mL proMETHazin 2020-0 Yes [id number] 25mg Insert 1 Univers e 9-04 Suppositor ity of (PHENERGAN) 00:00: y [place] 25 mg 00 rectum Medical suppository every 4 Branc h (four) hours as needed for Nausea and Vomiting (N/V). proMETHazin 2020-0 Yes [id number] 25mg Insert 1 Univers e 9-04 Suppositor ity of (PHENERGAN) 00:00: y into [place] 25 mg 00 rectum Medical suppository every 4 Branc h (four) hours as needed for Nausea and Vomiting (N/V). proMETHazin 2020-0 Yes [id number] 25mg Insert 1 Univers e 9-04 Suppositor ity of (PHENERGAN) 00:00: y into [place] 25 mg 00 rectum Medical suppository every 4 Branc h (four) hours as needed for Nausea and Vomiting (N/V). proMETHazin 2020-0 Yes [id number] 25mg Insert 1 Univers e 9-04 Suppositor ity of (PHENERGAN) 00:00: y into [place] 25 mg 00 rectum Medical suppository every 4 Branc h (four) hours as needed for Nausea and Vomiting (N/V). proMETHazin 2020-0 Yes [id number] 25mg Insert 1 Univers e 9-04 Suppositor ity of (PHENERGAN) 00:00: y into [place] 25 mg 00 rectum Medical suppository every 4 Branc h (four) hours as needed for Nausea and Vomiting (N/V). proMETHazin 2020-0 Yes [id number] 25mg Insert 1 Univers e 9-04 Suppositor ity of (PHENERGAN) 00:00: y into [place] 25 mg 00 rectum Medical suppository every 4 Branc h (four) hours as needed for Nausea and Vomiting (N/V). proMETHazin 2020-0 Yes [id number] 25mg Insert 1 Univers e 9-04 Suppositor ity of (PHENERGAN) 00:00: y into [place] 25 mg 00 rectum Medical suppository every 4 Branc h (four) hours as needed for Nausea and Vomiting (N/V). proMETHazin 2020-0 Yes [id number] 25mg Insert 1 Univers e 9-04 Suppositor ity of (PHENERGAN) 00:00: y into [place] 25 mg 00 rectum Medical suppository every 4 Branc h (four) hours as needed for Nausea and Vomiting (N/V). proMETHazin 2020-0 Yes [id number] 25mg Insert 1 Univers e 9-04 Suppositor ity of (PHENERGAN) 00:00: y into [place] 25 mg 00 rectum Medical suppository every 4 Branc h (four) hours as needed for Nausea and Vomiting (N/V). proMETHazin 2020-0 Yes [id number] 25mg Insert 1 Univers e 9-04 Suppositor ity of (PHENERGAN) 00:00: y into [place] 25 mg 00 rectum Medical suppository every 4 Branc h (four) hours as needed for Nausea and Vomiting (N/V). proMETHazin 2020-0 Yes [id number] 25mg Insert 1 Univers e 9-04 Suppositor ity of (PHENERGAN) 00:00: y into [place] 25 mg 00 rectum Medical suppository every 4 Branc h (four) hours as needed for Nausea and Vomiting (N/V). proMETHazin 2020-0 Yes [id number] 25mg Insert 1 Univers e 9-04 Suppositor ity of (PHENERGAN) 00:00: y into [place] 25 mg 00 rectum Medical suppository every 4 Branc h (four) hours as needed for Nausea and Vomiting (N/V). proMETHazin 2020-0 Yes [id number] 25mg Insert 1 Univers e 9-04 Suppositor ity of (PHENERGAN) 00:00: y into [place] 25 mg 00 rectum Medical suppository every 4 Branc h (four) hours as needed for Nausea and Vomiting (N/V). proMETHazin 2020-0 Yes [id number] 25mg Insert 1 Univers e 9-04 Suppositor ity of (PHENERGAN) 00:00: y into [place] 25 mg 00 rectum Medical suppository every 4 Branc h (four) hours as needed for Nausea and Vomiting (N/V). proMETHazin 2020-0 Yes [id number] 25mg Insert 1 Univers e 9-04 Suppositor ity of (PHENERGAN) 00:00: y into [place] 25 mg 00 rectum Medical suppository every 4 Branc h (four) hours as needed for Nausea and Vomiting (N/V). proMETHazin 2020-0 Yes [id number] 25mg Insert 1 Univers e 9-04 Suppositor ity of (PHENERGAN) 00:00: y into [place] 25 mg 00 rectum Medical suppository every 4 Branc h (four) hours as needed for Nausea and Vomiting (N/V). proMETHazin 2020-0 Yes [id number] 25mg Insert 1 Univers e 9-04 Suppositor ity of (PHENERGAN) 00:00: y into [place] 25 mg 00 rectum Medical suppository every 4 Branc h (four) hours as needed for Nausea and Vomiting (N/V). proMETHazin 2020-0 Yes [id number] 25mg Insert 1 Univers e 9-04 Suppositor ity of (PHENERGAN) 00:00: y into [place] 25 mg 00 rectum Medical suppository every 4 Branc h (four) hours as needed for Nausea and Vomiting (N/V). proMETHazin 2020-0 Yes [id number] 25mg Insert 1 Univers e 9-04 Suppositor ity of (PHENERGAN) 00:00: y into [place] 25 mg 00 rectum Medical suppository every 4 Branc h (four) hours as needed for Nausea and Vomiting (N/V). proMETHazin 2019-2020- No [id number] 25mg Insert 1 Univers e 9-07 17-05 Suppositor ity of (PHENERGAN) 00:00: 00:00 y into [place] 25 mg 00 :00 rectum Medical suppository every 4 Branc h (four) hours as needed for Nausea and Vomiting (N/V). proMETHazin 2019-0 2020- No [id number] 25mg Insert 1 Univers e 9 04-05 Suppositor ity of (PHENERGAN) 00:00: 00:00 y into [place] 25 mg 00 :00 rectum Medical suppository every 4 Branc h (four) hours as needed for Nausea and Vomiting (N/V). Chlorhexidi Chlorhexidi 2019- No Na [place] [address] [facility] ne ne 6-23 06-30 [facility] Gluconate Gluconate 00:00: 00:00 spit Me [place] 00 :00 [facility] cloNIDine 2019-0 2020- No .2mg 0.2 mg, Univ ers (CATAPRES) 08-21- Oral, ity of tablet 0.2 05:00: 04:00 ONCE, 1 [place] mg 00 :00 dose, Sat Medical 08/22/19 at Branch 0000, STAT ondansetron 2019-0 2020- No 4mg 4 mg, Slow Univers [...] at Branch 2315, Routine Nitrofurant 2020-0 Yes [id number] 100mg Take 1 Univers oin&Nit. 5-08 capsule by ity o f Macrocryst 00:00: mouth 2 [place] (MACROBID) 00 (two) Medical 100 mg times Branch capsule daily. benzonatate 2020-0 Yes [id number] 200mg Take 1 Univers 200 mg 5-08 capsule by ity of capsule 00:00: mouth 3 [place] 00 (three) Medical times Branch daily as needed for Cough. ondansetron 2020-0 Yes [id number] 4mg Take 1 Univers (ZOFRAN) 4 5-08 tablet by ity of mg tablet 00:00: mouth [place] 00 every 8 Medical (eight) Branch hours as needed for Nausea and Vomiting (N/V). traMADol 2020-0 Yes [id number] 50mg Take 1 Uni vers (ULTRAM) 50 5-08 tablet by ity of mg tablet 00:00: mouth [place] 00 every 6 Medical (six) Branch hours as needed for Pain (scale 7-10). albuterol 2020-0 Yes [id number] 2{puff} Inhale 2 [facility] 90 5-08 Puffs ity of mcg/actuati 00:00: every 4 [place] on inhaler 00 (four) Medical hours as Branch needed for Wheezing, Shortness of Breath, Bronchospa sm or Chest tightness. benzonatate 2020-0 Yes [id number] 200mg Take 1 [facility] 200 mg 5-08 capsule by ity of capsule 00:00: mouth 3 [place] 00 (three) Medical times Branch daily as needed for Cough. ondansetron 2020-0 Yes [id number] 4mg Take 1 [facility] (ZOFRAN) 4 5-08 tablet by ity of mg tablet 00:00: mouth [place] 00 every 8 Medical (eight) Branch hours as needed for Nausea and Vomiting (N/V). traMADol 2020-0 Yes [id number] 50mg Take 1 [facility] vers (ULTRAM) 50 5-08 tablet by ity of mg tablet 00:00: mouth [place] 00 every 6 Medical (six) Branch hours as needed for Pain (scale 7-10). albuterol 2020-0 Yes [id number] 2{puff} Inhale 2 [facility] 90 5-08 Puffs ity of mcg/actuati 00:00: every 4 [place] on inhaler 00 (four) Medical hours as Branch needed for Wheezing, Shortness of Breath, Bronchospa sm or Chest tightness. benzonatate 2020-0 Yes [id number] 200mg Take 1 [facility] 200 mg 5-08 capsule by ity of capsule 00:00: mouth 3 [place] 00 (three) Medical times Branch daily as needed for Cough. ondansetron 2020-0 Yes [id number] 4mg Take 1 [facility] (ZOFRAN) 4 5-08 tablet by ity of mg tablet 00:00: mouth [place] 00 every 8 Medical (eight) Branch hours as needed for Nausea and Vomiting (N/V). traMADol 2020-0 Yes [id number] 50mg Take 1 [facility] vers (ULTRAM) 50 5-08 tablet by ity of mg tablet 00:00: mouth [place] 00 every 6 Medical (six) Branch hours as needed for Pain (scale 7-10). albuterol 2020-0 Yes [id number] 2{puff} Inhale 2 [facility] 90 5-08 Puffs ity of mcg/actuati 00:00: every 4 [place] on inhaler 00 (four) Medical hours as Branch needed for Wheezing, Shortness of Breath, Bronchospa sm or Chest tightness. benzonatate 2020-0 Yes [id number] 200mg Take 1 [facility] 200 mg 5-08 capsule by ity of capsule 00:00: mouth 3 [place] 00 (three) Medical times Branch daily as needed for Cough. ondansetron 2020-0 Yes [id number] 4mg Take 1 [facility] (ZOFRAN) 4 5-08 tablet by ity of mg tablet 00:00: mouth [place] 00 every 8 Medical (eight) Branch hours as needed for Nausea and Vomiting (N/V). traMADol 2020-0 Yes [id number] 50mg Take 1 [facility] vers (ULTRAM) 50 5-08 tablet by ity of mg tablet 00:00: mouth [place] 00 every 6 Medical (six) Branch hours as needed for Pain (scale 7-10). albuterol 2020-0 Yes [id number] 2{puff} Inhale 2 [facility] 90 5-08 Puffs ity of mcg/actuati 00:00: every 4 [place] on inhaler 00 (four) Medical hours as Branch needed for Wheezing, Shortness of Breath, Bronchospa sm or Chest tightness. benzonatate 2020-0 Yes [id number] 200mg Take 1 [facility] 200 mg 5-08 capsule by ity of capsule 00:00: mouth 3 [place] 00 (three) Medical times Branch daily as needed for Cough. ondansetron 2020-0 Yes [id number] 4mg Take 1 [facility] (ZOFRAN) 4 5-08 tablet by ity of mg tablet 00:00: mouth [place] 00 every 8 Medical (eight) Branch hours as needed for Nausea and Vomiting (N/V). traMADol 2020-0 Yes [id number] 50mg Take 1 [facility] vers (ULTRAM) 50 5-08 tablet by ity of mg tablet 00:00: mouth [place] 00 every 6 Medical (six) Branch hours as needed for Pain (scale 7-10). albuterol 2020-0 Yes [id number] 2{puff} Inhale 2 [facility] 90 5-08 Puffs ity of mcg/actuati 00:00: every 4 [place] on inhaler 00 (four) Medical hours as Branch needed for Wheezing, Shortness of Breath, Bronchospa sm or Chest tightness. benzonatate 2020-0 Yes [id number] 200mg Take 1 [facility] 200 mg 5-08 capsule by ity of capsule 00:00: mouth 3 [place] 00 (three) Medical times Branch daily as needed for Cough. ondansetron 2020-0 Yes [id number] 4mg Take 1 [facility] (ZOFRAN) 4 5-08 tablet by ity of mg tablet 00:00: mouth [place] 00 every 8 Medical (eight) Branch hours as needed for Nausea and Vomiting (N/V). traMADol 2020-0 Yes [id number] 50mg Take 1 [facility] vers (ULTRAM) 50 5-08 tablet by ity of mg tablet 00:00: mouth [place] 00 every 6 Medical (six) Branch hours as needed for Pain (scale 7-10). albuterol 2020-0 Yes [id number] 2{puff} Inhale 2 [facility] 90 5-08 Puffs ity of mcg/actuati 00:00: every 4 [place] on inhaler 00 (four) Medical hours as Branch needed for Wheezing, Shortness of Breath, Bronchospa sm or Chest tightness. benzonatate 2020-0 Yes [id number] 200mg Take 1 [facility] 200 mg 5-08 capsule by ity of capsule 00:00: mouth 3 (three) Medical times Branch daily as needed for Cough. ondansetron 2020-0 Yes [id number] 4mg Take 1 [facility] (ZOFRAN) 4 5-08 tablet by ity of mg tablet 00:00: mouth [place] 00 every 8 Medical (eight) Branch hours as needed for Nausea and Vomiting (N/V). traMADol 2020-0 Yes [id number] 50mg Take 1 [facility] vers (ULTRAM) 50 5-08 tablet by ity of mg tablet 00:00: mouth [place] 00 every 6 Medical (six) Branch hours as needed for Pain (scale 7-10). albuterol 2020-0 Yes [id number] 2{puff} Inhale 2 [facility] 90 5-08 Puffs ity of mcg/actuati 00:00: every 4 [place] on inhaler 00 (four) Medical hours as Branch needed for Wheezing, Shortness of Breath, Bronchospa sm or Chest tightness. benzonatate 2020-0 Yes [id number] 200mg Take 1 [facility] 200 mg 5-08 capsule by ity of capsule 00:00: mouth 3 [place] 00 (three) Medical times Branch daily as needed for Cough. ondansetron 2020-0 Yes [id number] 4mg Take 1 [facility] (ZOFRAN) 4 5-08 tablet by ity of mg tablet 00:00: mouth [place] 00 every 8 Medical (eight) Branch hours as needed for Nausea and Vomiting (N/V). traMADol 2020-0 Yes [id number] 50mg Take 1 [facility] vers (ULTRAM) 50 5-08 tablet by ity of mg tablet 00:00: mouth [place] 00 every 6 Medical (six) Branch hours as needed for Pain (scale 7-10). albuterol 2020-0 Yes [id number] 2{puff} Inhale 2 [facility] 90 5-08 Puffs ity of mcg/actuati 00:00: every 4 [place] on inhaler 00 (four) Medical hours as Branch needed for Wheezing, Shortness of Breath, Bronchospa sm or Chest tightness. benzonatate 2020-0 Yes [id number] 200mg Take 1 [facility] 200 mg 5-08 capsule by ity of capsule 00:00: mouth 3 [place] 00 (three) Medical times Branch daily as needed for Cough. ondansetron 2020-0 Yes [id number] 4mg Take 1 [facility] (ZOFRAN) 4 5-08 tablet by ity of mg tablet 00:00: mouth [place] 00 every 8 Medical (eight) Branch hours as needed for Nausea and Vomiting (N/V). traMADol 2020-0 Yes [id number] 50mg Take 1 [facility] vers (ULTRAM) 50 5-08 tablet by ity of mg tablet 00:00: mouth [place] 00 every 6 Medical (six) Branch hours as needed for Pain (scale 7-10). albuterol 2020-0 Yes [id number] 2{puff} Inhale 2 [facility] 90 5-08 Puffs ity of mcg/actuati 00:00: every 4 [place] on inhaler 00 (four) Medical hours as Branch needed for Wheezing, Shortness of Breath, Bronchospa sm or Chest tightness. benzonatate 2020-0 Yes [id number] 200mg Take 1 [facility] 200 mg 5-08 capsule by ity of capsule 00:00: mouth 3 [place] 00 (three) Medical times Branch daily as needed for Cough. ondansetron 2020-0 Yes [id number] 4mg Take 1 [facility] (ZOFRAN) 4 5-08 tablet by ity of mg tablet 00:00: mouth [place] 00 every 8 Medical (eight) Branch hours as needed for Nausea and Vomiting (N/V). traMADol 2020-0 Yes [id number] 50mg Take 1 [facility] vers (ULTRAM) 50 5-08 tablet by ity of mg tablet 00:00: mouth [place] 00 every 6 Medical (six) Branch hours as needed for Pain (scale 7-10). albuterol 2020-0 Yes [id number] 2{puff} Inhale 2 [facility] 90 5-08 Puffs ity of mcg/actuati 00:00: every 4 [place] on inhaler 00 (four) Medical hours as Branch needed for Wheezing, Shortness of Breath, Bronchospa sm or Chest tightness. benzonatate 2020-0 Yes [id number] 200mg Take 1 [facility] 200 mg 5-08 capsule by ity of capsule 00:00: mouth 3 [place] 00 (three) Medical times Branch daily as needed for Cough. ondansetron 2020-0 Yes [id number] 4mg Take 1 [facility] (ZOFRAN) 4 5-08 tablet by ity of mg tablet 00:00: mouth [place] 00 every 8 Medical (eight) Branch hours as needed for Nausea and Vomiting (N/V). traMADol 2020-0 Yes [id number] 50mg Take 1 [facility] vers (ULTRAM) 50 5-08 tablet by ity of mg tablet 00:00: mouth [place] 00 every 6 Medical (six) Branch hours as needed for Pain (scale 7-10). albuterol 2020-0 Yes [id number] 2{puff} Inhale 2 [facility] 90 5-08 Puffs ity of mcg/actuati 00:00: every 4 [place] on inhaler 00 (four) Medical hours as Branch needed for Wheezing, Shortness of Breath, Bronchospa sm or Chest tightness. benzonatate 2020-0 Yes [id number] 200mg Take 1 [facility] 200 mg 5-08 capsule by ity of capsule 00:00: mouth 3 [place] 00 (three) Medical times Branch daily as needed for Cough. ondansetron 2020-0 Yes [id number] 4mg Take 1 [facility] (ZOFRAN) 4 5-08 tablet by ity of mg tablet 00:00: mouth [place] 00 every 8 Medical (eight) Branch hours as needed for Nausea and Vomiting (N/V). traMADol 2020-0 Yes [id number] 50mg Take 1 [facility] vers (ULTRAM) 50 5-08 tablet by ity of mg tablet 00:00: mouth [place] 00 every 6 Medical (six) Branch hours as needed for Pain (scale 7-10). albuterol 2020-0 Yes [id number] 2{puff} Inhale 2 [facility] 90 5-08 Puffs ity of mcg/actuati 00:00: every 4 [place] on inhaler 00 (four) Medical hours as Branch needed for Wheezing, Shortness of Breath, Bronchospa sm or Chest tightness. benzonatate 2020-0 Yes [id number] 200mg Take 1 [facility] 200 mg 5-08 capsule by ity of capsule 00:00: mouth 3 [place] 00 (three) Medical times Branch daily as needed for Cough. ondansetron 2020-0 Yes [id number] 4mg Take 1 [facility] (ZOFRAN) 4 5-08 tablet by ity of mg tablet 00:00: mouth [place] 00 every 8 Medical (eight) Branch hours as needed for Nausea and Vomiting (N/V). traMADol 2020-0 Yes [id number] 50mg Take 1 [facility] vers (ULTRAM) 50 5-08 tablet by ity of mg tablet 00:00: mouth [place] 00 every 6 Medical (six) Branch hours as needed for Pain (scale 7-10). albuterol 2020-0 Yes [id number] 2{puff} Inhale 2 [facility] 90 5-08 Puffs ity of mcg/actuati 00:00: every 4 [place] on inhaler 00 (four) Medical hours as Branch needed for Wheezing, Shortness of Breath, Bronchospa sm or Chest tightness. benzonatate 2020-0 Yes [id number] 200mg Take 1 [facility] 200 mg 5-08 capsule by ity of capsule 00:00: mouth 3 [place] 00 (three) Medical times Branch daily as needed for Cough. ondansetron 2020-0 Yes [id number] 4mg Take 1 [facility] (ZOFRAN) 4 5-08 tablet by ity of mg tablet 00:00: mouth [place] 00 every 8 Medical (eight) Branch hours as needed for Nausea and Vomiting (N/V). traMADol 2020-0 Yes [id number] 50mg Take 1 [facility] vers (ULTRAM) 50 5-08 tablet by ity of mg tablet 00:00: mouth [place] 00 every 6 Medical (six) Branch hours as needed for Pain (scale 7-10). albuterol 2020-0 Yes [id number] 2{puff} Inhale 2 [facility] 90 5-08 Puffs ity of mcg/actuati 00:00: every 4 [place] on inhaler 00 (four) Medical hours as Branch needed for Wheezing, Shortness of Breath, Bronchospa sm or Chest tightness. benzonatate 2020-0 Yes [id number] 200mg Take 1 [facility] 200 mg 5-08 capsule by ity of capsule 00:00: mouth 3 [place] 00 (three) Medical times Branch daily as needed for Cough. ondansetron 2020-0 Yes [id number] 4mg Take 1 [facility] (ZOFRAN) 4 5-08 tablet by ity of mg tablet 00:00: mouth [place] 00 every 8 Medical (eight) Branch hours as needed for Nausea and Vomiting (N/V). traMADol 2020-0 Yes [id number] 50mg Take 1 [facility] vers (ULTRAM) 50 5-08 tablet by ity of mg tablet 00:00: mouth [place] 00 every 6 Medical (six) Branch hours as needed for Pain (scale 7-10). albuterol 2020-0 Yes [id number] 2{puff} Inhale 2 [facility] 90 5-08 Puffs ity of mcg/actuati 00:00: every 4 [place] on inhaler 00 (four) Medical hours as Branch needed for Wheezing, Shortness of Breath, Bronchospa sm or Chest tightness. benzonatate 2020-0 Yes [id number] 200mg Take 1 [facility] 200 mg 5-08 capsule by ity of capsule 00:00: mouth 3 [place] 00 (three) Medical times Branch daily as needed for Cough. ondansetron 2020-0 Yes [id number] 4mg Take 1 [facility] (ZOFRAN) 4 5-08 tablet by ity of mg tablet 00:00: mouth [place] 00 every 8 Medical (eight) Branch hours as needed for Nausea and Vomiting (N/V). traMADol 2020-0 Yes [id number] 50mg Take 1 [facility] vers (ULTRAM) 50 5-08 tablet by ity of mg tablet 00:00: mouth [place] 00 every 6 Medical (six) Branch hours as needed for Pain (scale 7-10). albuterol 2020-0 Yes [id number] 2{puff} Inhale 2 [facility] 90 5-08 Puffs ity of mcg/actuati 00:00: every 4 [place] on inhaler 00 (four) Medical hours as Branch needed for Wheezing, Shortness of Breath, Bronchospa sm or Chest tightness. benzonatate 2020-0 Yes [id number] 200mg Take 1 [facility] 200 mg 5-08 capsule by ity of capsule 00:00: mouth 3 [place] 00 (three) Medical times Branch daily as needed for Cough. ondansetron 2020-0 Yes [id number] 4mg Take 1 [facility] (ZOFRAN) 4 5-08 tablet by ity of mg tablet 00:00: mouth [place] 00 every 8 Medical (eight) Branch hours as needed for Nausea and Vomiting (N/V). traMADol 2020-0 Yes [id number] 50mg Take 1 [facility] vers (ULTRAM) 50 5-08 tablet by ity of mg tablet 00:00: mouth [place] 00 every 6 Medical (six) Branch hours as needed for Pain (scale 7-10). albuterol 2020-0 Yes [id number] 2{puff} Inhale 2 [facility] 90 5-08 Puffs ity of mcg/actuati 00:00: every 4 [place] on inhaler 00 (four) Medical hours as Branch needed for Wheezing, Shortness of Breath, Bronchospa sm or Chest tightness. benzonatate 2020-0 Yes [id number] 200mg Take 1 [facility] 200 mg 5-08 capsule by ity of capsule 00:00: mouth 3 [place] 00 (three) Medical times Branch daily as needed for Cough. ondansetron 2020-0 Yes [id number] 4mg Take 1 [facility] (ZOFRAN) 4 5-08 tablet by ity of mg tablet 00:00: mouth [place] 00 every 8 Medical (eight) Branch hours as needed for Nausea and Vomiting (N/V). traMADol 2020-0 Yes [id number] 50mg Take 1 [facility] vers (ULTRAM) 50 5-08 tablet by ity of mg tablet 00:00: mouth [place] 00 every 6 Medical (six) Branch hours as needed for Pain (scale 7-10). albuterol 2020-0 Yes [id number] 2{puff} Inhale 2 [facility] 90 5-08 Puffs ity of mcg/actuati 00:00: every 4 [place] on inhaler 00 (four) Medical hours as Branch needed for Wheezing, Shortness of Breath, Bronchospa sm or Chest tightness. benzonatate 2020-0 Yes [id number] 200mg Take 1 [facility] 200 mg 5-08 capsule by ity of capsule 00:00: mouth 3 [place] 00 (three) Medical times Branch daily as needed for Cough. ondansetron 2020-0 Yes [id number] 4mg Take 1 [facility] (ZOFRAN) 4 5-08 tablet by ity of mg tablet 00:00: mouth [place] 00 every 8 Medical (eight) Branch hours as needed for Nausea and Vomiting (N/V). traMADol 2020-0 Yes [id number] 50mg Take 1 [facility] vers (ULTRAM) 50 5-08 tablet by ity of mg tablet 00:00: mouth [place] 00 every 6 Medical (six) Branch hours as needed for Pain (scale 7-10). albuterol 2020-0 Yes [id number] 2{puff} Inhale 2 [facility] 90 5-08 Puffs ity of mcg/actuati 00:00: every 4 [place] on inhaler 00 (four) Medical hours as Branch needed for Wheezing, Shortness of Breath, Bronchospa sm or Chest tightness. ondansetron 2020-0 Yes [id number] 4mg Take 1 [facility] (ZOFRAN) 4 5-08 tablet by ity of mg tablet 00:00: mouth [place] 00 every 8 Medical (eight) Branch hours as needed for Nausea and Vomiting (N/V). ondansetron 2020-0 Yes [id number] 4mg Take 1 [facility] (ZOFRAN) 4 5-08 tablet by ity of mg tablet 00:00: mouth [place] 00 every 8 Medical (eight) Branch hours as needed for Nausea and Vomiting (N/V). ondansetron 2020-0 Yes [id number] 4mg Take 1 [facility] (ZOFRAN) 4 5-08 tablet by ity of mg tablet 00:00: mouth [place] 00 every 8 Medical (eight) Branch hours as needed for Nausea and Vomiting (N/V). ondansetron 2020-0 Yes [id number] 4mg Take 1 [facility] (ZOFRAN) 4 5-08 tablet by ity of mg tablet 00:00: mouth [place] 00 every 8 Medical (eight) Branch hours as needed for Nausea and Vomiting (N/V). Nitrofurant 2020-0 Yes [id number] 100mg Take 1 [facility] oin&Nit. 5-08 capsule by ity o f Macrocryst 00:00: mouth 2 [place] (MACROBID) 00 (two) Medical 100 mg times Branch capsule daily. benzonatate 2020-0 Yes [id number] 200mg Take 1 [facility] 200 mg 5-08 capsule by ity of capsule 00:00: mouth 3 [place] 00 (three) Medical times Branch daily as needed for Cough. ondansetron 2020-0 Yes [id number] 4mg Take 1 [facility] (ZOFRAN) 4 5-08 tablet by ity of mg tablet 00:00: mouth [place] 00 every 8 Medical (eight) Branch hours as needed for Nausea and Vomiting (N/V). traMADol 2019-0 Yes [id number] 50mg Take 1 [facility] vers (ULTRAM) 50 5-08 tablet by ity of mg tablet 00:00: mouth [place] 00 every 6 Medical (six) Branch hours as needed for Pain (scale 7-10). albuterol Yes [id number] 2{puff} Inhale 2 [facility] 90 5-08 Puffs ity of mcg/actuati 00:00: every 4 [place] on inhaler 00 (four) Medical hours as Branch needed for Wheezing, Shortness of Breath, Bronchospa sm or Chest tightness. ondansetron 2020- No [id number] 4mg Take 1 [facility] (ZOFRAN) 4 5-08 06-30 tablet by ity of mg tablet 00:00: 00:00 mouth [place] 00 :00 every 8 Medical (eight) Branch hours as needed for Nausea and Vomiting (N/V). benzonatate 2020- No [id number] 200mg Take 1 [facility] 200 mg 5-08 04-05 capsule by ity of capsule 00:00: 00:00 mouth 3 [place] 00 :00 (three) Medical times Branch daily as needed for Cough. traMADol 2020- No [id number] 50mg Take 1 Un you (ULTRAM) 50 5-08 04-05 tablet by it y of mg tablet 00:00: 00:00 mouth [place] 00 :00 every 6 Medical (six) Branch hours as needed for Pain (scale 7-10). albuterol 2020- No [id number] 2{puff} Inhale 2 [facility] 90 5-08 04-05 Puffs ity of mcg/actuati 00:00: 00:00 every 4 [place] on inhaler 00 :00 (four) Medical hours as Branch needed for Wheezing, Shortness of Breath, Bronchospa sm or Chest tightness. benzonatate No [id number] 200mg Take 1 [facility] 200 mg 08-20-05 capsule by ity of capsule 00:00: 00:00 mouth 3 [place] 00 :00 (three) Medical times Branch daily as needed for Cough. traMADol 2020- No [id number] 50mg Take 1 Un you (ULTRAM) 50 08-20-05 tablet by it y of mg tablet 00:00: 00:00 mouth [place] 00 :00 every 6 Medical (six) Branch hours as needed for Pain (scale 7-10). albuterol 2020- No [id number] 2{puff} Inhale 2 [facility] 90 08-20-05 Puffs ity of mcg/actuati 00:00: 00:00 every 4 [place] on inhaler 00 :00 (four) Medical hours as Branch needed for Wheezing, Shortness of Breath, Bronchospa sm or Chest tightness. Nitrofurant 2019- No [id number] 100mg Take 1 [facility] oin&Nit. 08-20- capsule by ity of Macrocryst 00:00: 00:00 mouth 2 [place] (MACROBID) 00 :00 (two) Medical 100 mg times Branch capsule daily. HYDROcodone 2019- No 1{tbl} 1 tablet, Univers -acetaminop 06-25 Oral, ONCE i ty of hen (NORCO) 01:15: 00:22 NOW, 1 [place] 10-325 mg 00 :00 dose, [place] Medic al tablet 1 06/25/19 at [facility] h tablet 2014, [place] dicyclomine Yes 20mg 20 mg, Univ ers (BENTYL) 06-25 Intramuscu ity o f injection 01:00: lar, QID, [place] as 20 mg 00 First dose Medical on [facility] Branch 06/25/19 at 2000, Until Discontinu ed, [place] hydralAZINE 2019- No 20mg 20 mg, Uni vers (APRESOLINE 06-25 Intravenou i ty of ) injection 00:45: 00:10 [place], ONCE [place] 20 mg 00 :00 NOW, 1 Medical dose, [place] Branch 06/25/19 at 1945, [place] metoclopram 2019- No 10mg 10 mg, Uni vers selena HCl 06-24 Slow IV ity of (REGLAN) 23:45: 22:48 Push, [place] injection 00 :00 ONCE, 1 Medical 10 mg dose, [facility] 06/25/19 at 1845, [place] ketorolac 2019-0 2019- No 30mg 30 mg, Unive rs (TORADOL) 06-24 Slow IV ity of injection 23:45: 22:49 Push, [place] 30 mg 00 :00 ONCE, 1 Medical dose, [facility] 06/25/19 at 1845, [place]
Fa culty member approving Restricted medication : KIRSTIN RON NaCl 0.9% 2019- No 1000mL at 999 Uni vers (NS) bolus 06-24 mL/hr, ity of infusion 22:45: 01:01 1,000 mL, [place] 1,000 mL 00 :00 IV Medical Infusion, Branch ONCE, 1 dose, [facility] 06/25/19 at 1745, [place] maalox:diph 2019-0 2020- No 15mL 15 mL, Uni vers enhydrAMINE 06-24 Oral, ity of :lidocaine 22:45: 22:52 ONCE, 1 [place] 2 % viscous 00 :00 dose, [place] Med ical 1:1:1 06/25/19 at [place] (-[id number], [place] [facility]) oral suspension 15 mL morpHINE 2019-0 2020- No 4mg 4 mg, Slow Un you injection 4 06-19 IV Push, ity of mg 01:00: 00:10 ONCE, 1 [place] 00 :00 dose, Fri Medical 06/19/19 at [place] 1900, STAT maalox:diph 2020-0 2020- No 15mL 15 mL, Uni vers enhydrAMINE 06-19 Oral, ity of :lidocaine 01:00: 00:10 ONCE, 1 [place] 2 % viscous 00 :00 dose, Fri Med ical 1:1:1 06/19/19 at [place] (-MO 190, [facility]) Routine oral suspension 15 mL famotidine 0 2020- No 20mg 20 mg, Univ ers (PEPCID 06-18 Slow IV ity of (PF)) 22:30: 21:40 Push, [place] injection 00 :00 ONCE, 1 Medical 20 mg dose, Fri Branch 06/19/19 at 1630, [place] proMETHazin 2019-0 2020- No 12.5mg 12.5 mg, Univers e 06-18-06 IV ity of (PHENERGAN) 22:30: 21:[facility] [place] 12.5 mg in 00 :00 ONCE, 1 Medica l NaCl 0.9% dose, Fri Branc h (NS) 50 mL 06/19/19 at [facility] 1630, 50 mL morpHINE 2019-0 2020- No 4mg 4 mg, Slow Un you injection 4 06-18 IV Push, ity of mg 22:30: 21:40 ONCE, 1 [place] 00 :00 dose, Fri Medical 06/19/19 at Branch 1630, STAT NaCl 0.9% 2020-0 2020- No 1000mL at 999 Uni vers (NS) bolus 06-18-06 mL/hr, ity of infusion 21:30: 23:56 1,000 mL, [place] 1,000 mL 00 :00 IV Medical Infusion, Branch ONCE, 1 dose, 06/19/19 at 1530, [place] ondansetron 2020-0 Yes [id number] 8mg Take 2 [facility] 4 mg 3-06 tablets by ity of disintegrat 00:00: mouth [place] ing tablet 00 every 8 Medica l (eight) Branch hours as needed for Nausea and Vomiting (N/V). ondansetron 2020-0 Yes [id number] 8mg Take 2 [facility] 4 mg 3-06 tablets by ity of disintegrat 00:00: mouth [place] ing tablet 00 every 8 Medica l (eight) Branch hours as needed for Nausea and Vomiting (N/V). ondansetron 2020-0 Yes [id number] 8mg Take 2 [facility] 4 mg 3-06 tablets by ity of disintegrat 00:00: mouth [place] ing tablet 00 every 8 Medica l (eight) Branch hours as needed for Nausea and Vomiting (N/V). ondansetron 2020-0 Yes [id number] 8mg Take 2 [facility] 4 mg 3-06 tablets by ity of disintegrat 00:00: mouth [place] ing tablet 00 every 8 Medica l (eight) Branch hours as needed for Nausea and Vomiting (N/V). ondansetron 2020-0 2020- No [id number] 8mg Take 2 [facility] 4 mg 3-06 10-26 tablets by ity of disintegrat 00:00: 00:00 mouth [place] tablet 00 :00 every 8 Medica l (eight) Branch hours as needed for Nausea and Vomiting (N/V). famotidine 2020-0 2020- No [id number] 40mg Take 1 [facility] (PEPCID) 40 3-06 04-06 tablet by it y of mg tablet 00:00: 04:59 mouth [place] 00 :00 daily for Medical 30 days. Branch famotidine 2020-0 2020- No [id number] 40mg Take 1 [facility] (PEPCID) 40 3-06 04-06 tablet by it y of mg tablet 00:00: 04:59 mouth [place] 00 :00 daily for Medical 30 days. Branch morpHINE 2020-0 2020- No 4mg 4 mg, Slow Un you injection 4 05-20-05 IV Push, ity of mg 04:15: 03:09 ONCE, 1 00 :00 dose, Tue Medical 05/19/19 at Branch 2215, STAT iohexol 2020-0 2020- No 120mL 120 mL, Unive rs (OMNIPAQUE 2-05 Intravenou it y of 350 02:15: 02:15 s, ONCE, 1 [place] BULK-150 00 :00 dose, Tue Medica l mL) 05/19/19 at Branch injection 2015, 120 mL Routine ondansetron 2020-0 2020- No 4mg 4 mg, Slow Univers (ZOFRAN 2-05 IV Push, ity of (PF)) 02:15: 01:25 ONCE, 1 [place] injection 4 00 :00 dose, Tue Med ical mg 05/19/19 at Branch 2015, Routine morpHINE 2020-0 2020- No 4mg 4 mg, Slow Un you injection 4 05-20 02-05 IV Push, ity of mg 02:15: 01:25 ONCE, 1 00 :00 dose, Tue Medical 05/19/19 at Branch 2015, STAT traMADol 2020-0 Yes [id number] 100mg Take 1 Un you 100 mg 24 2-04 tablet by ity o f hr tablet 00:00: mouth [place] 00 daily. Medical Branch ondansetron 2020-0 Yes [id number] 4mg Take 1 [facility] 4 mg 2-04 tablet by ity of disintegrat 00:00: mouth [place] ing tablet 00 every 8 Medica l (eight) Branch hours as needed for Nausea and Vomiting (N/V). ondansetron 2020-0 Yes [id number] 4mg Take 1 [facility] 4 mg 2-04 tablet by ity of disintegrat 00:00: mouth [place] ing tablet 00 every 8 Medica l (eight) Branch hours as needed for Nausea and Vomiting (N/V). ondansetron 2020-0 Yes [id number] 4mg Take 1 [facility] 4 mg 2-04 tablet by ity of disintegrat 00:00: mouth [place] ing tablet 00 every 8 Medica l (eight) Branch hours as needed for Nausea and Vomiting (N/V). ondansetron 2020-0 Yes [id number] 4mg Take 1 [facility] 4 mg 2-04 tablet by ity of disintegrat 00:00: mouth [place] ing tablet 00 every 8 Medica l (eight) Branch hours as needed for Nausea and Vomiting (N/V). ondansetron 2020-0 Yes [id number] 4mg Take 1 [facility] 4 mg 2-04 tablet by ity of disintegrat 00:00: mouth [place] ing tablet 00 every 8 Medica l (eight) Branch hours as needed for Nausea and Vomiting (N/V). ondansetron 2020-0 Yes [id number] 4mg Take 1 Univers 4 mg 2-04 tablet by ity of disintegrat 00:00: mouth [place] ing tablet 00 every 8 Medica l (eight) Branch hours as needed for Nausea and Vomiting (N/V). ondansetron 2020-0 Yes [id number] 4mg Take 1 [facility] 4 mg 2-04 tablet by ity of disintegrat 00:00: mouth [place] ing tablet 00 every 8 Medica l (eight) Branch hours as needed for Nausea and Vomiting (N/V). ondansetron 2020-0 Yes [id number] 4mg Take 1 [facility] 4 mg 2-04 tablet by ity of disintegrat 00:00: mouth [place] ing tablet 00 every 8 Medica l (eight) Branch hours as needed for Nausea and Vomiting (N/V). ondansetron 2020-0 Yes [id number] 4mg Take 1 [facility] 4 mg 2-04 tablet by ity of disintegrat 00:00: mouth [place] ing tablet 00 every 8 Medica l (eight) Branch hours as needed for Nausea and Vomiting (N/V). ondansetron 2020-0 Yes [id number] 4mg Take 1 [facility] 4 mg 2-04 tablet by ity of disintegrat 00:00: mouth [place] ing tablet 00 every 8 Medica l (eight) Branch hours as needed for Nausea and Vomiting (N/V). ondansetron 2020-0 Yes [id number] 4mg Take 1 [facility] 4 mg 2-04 tablet by ity of disintegrat 00:00: mouth [place] ing tablet 00 every 8 Medica l (eight) Branch hours as needed for Nausea and Vomiting (N/V). ondansetron 2020-0 Yes [id number] 4mg Take 1 [facility] 4 mg 2-04 tablet by ity of disintegrat 00:00: mouth [place] ing tablet 00 every 8 Medica l (eight) Branch hours as needed for Nausea and Vomiting (N/V). ondansetron 2020-0 Yes [id number] 4mg Take 1 [facility] 4 mg 2-04 tablet by ity of disintegrat 00:00: mouth [place] ing tablet 00 every 8 Medica l (eight) Branch hours as needed for Nausea and Vomiting (N/V). ondansetron 2020-0 Yes [id number] 4mg Take 1 [facility] 4 mg 2-04 tablet by ity of disintegrat 00:00: mouth [place] ing tablet 00 every 8 Medica l (eight) Branch hours as needed for Nausea and Vomiting (N/V). ondansetron 2020-0 Yes [id number] 4mg Take 1 [facility] 4 mg 2-04 tablet by ity of disintegrat 00:00: mouth [place] ing tablet 00 every 8 Medica l (eight) Branch hours as needed for Nausea and Vomiting (N/V). ondansetron 2020-0 Yes [id number] 4mg Take 1 [facility] 4 mg 2-04 tablet by ity of disintegrat 00:00: mouth [place] ing tablet 00 every 8 Medica l (eight) Branch hours as needed for Nausea and Vomiting (N/V). ondansetron 2020-0 Yes [id number] 4mg Take 1 [facility] 4 mg 2-04 tablet by ity of disintegrat 00:00: mouth [place] ing tablet 00 every 8 Medica l (eight) Branch hours as needed for Nausea and Vomiting (N/V). ondansetron 2020-0 Yes [id number] 4mg Take 1 [facility] 4 mg 2-04 tablet by ity of disintegrat 00:00: mouth [place] ing tablet 00 every 8 Medica l (eight) Branch hours as needed for Nausea and Vomiting (N/V). ondansetron 2020-0 Yes [id number] 4mg Take 1 [facility] 4 mg 2-04 tablet by ity of disintegrat 00:00: mouth [place] ing tablet 00 every 8 Medica l (eight) Branch hours as needed for Nausea and Vomiting (N/V). traMADol 2020-0 Yes [id number] 100mg Take 1 [facility] 100 mg 24 2-04 tablet by ity o f hr tablet 00:00: mouth [place] 00 daily. Medical Branch ondansetron 2020-0 Yes [id number] 4mg Take 1 [facility] 4 mg 2-04 tablet by ity of disintegrat 00:00: mouth [place] ing tablet 00 every 8 Medica l (eight) Branch hours as needed for Nausea and Vomiting (N/V). traMADol 2020-0 Yes [id number] 100mg Take 1 [facility] 100 mg 24 2-04 tablet by ity o f hr tablet 00:00: mouth [place] 00 daily. Medical Branch ondansetron 2020-0 Yes [id number] 4mg Take 1 [facility] 4 mg 2-04 tablet by ity of disintegrat 00:00: mouth [place] ing tablet 00 every 8 Medica l (eight) Branch hours as needed for Nausea and Vomiting (N/V). traMADol 2020-0 Yes [id number] 100mg Take 1 [facility] 100 mg 24 2-04 tablet by ity o f hr tablet 00:00: mouth [place] 00 daily. Medical Branch ondansetron 2020-0 Yes [id number] 4mg Take 1 [facility] 4 mg 2-04 tablet by ity of disintegrat 00:00: mouth [place] ing tablet 00 every 8 Medica l (eight) Branch hours as needed for Nausea and Vomiting (N/V). traMADol 2020-0 Yes [id number] 100mg Take 1 [facility] 100 mg 24 2-04 tablet by ity o f hr tablet 00:00: mouth [place] 00 daily. Medical Branch ondansetron 2020-0 Yes [id number] 4mg Take 1 [facility] 4 mg 2-04 tablet by ity of disintegrat 00:00: mouth [place] ing tablet 00 every 8 Medica l (eight) Branch hours as needed for Nausea and Vomiting (N/V). traMADol Yes [id number] 100mg Take 1 [facility] 100 mg 24 2-04 tablet by ity o f hr tablet 00:00: mouth [place] 00 daily. Medical Branch ondansetron Yes [id number] 4mg Take 1 [facility] 4 mg 2-04 tablet by ity of disintegrat 00:00: mouth [place] ing tablet 00 every 8 Medica l (eight) Branch hours as needed for Nausea and Vomiting (N/V). ondansetron 2020- No [id number] 4mg Take 1 [facility] 4 mg 2-04 04-05 tablet by [facility] disintegrat 00:00: 00:00 [place] tablet 00 :00 every 8 Medica l (eight) Branch hours as needed for Nausea and Vomiting (N/V). ondansetron 2020- No [id number] 4mg Take 1 [facility] 4 mg 2-04 04-05 tablet by [facility] disintegrat 00:00: 00:00 [place] tablet 00 :00 every 8 Medica l (eight) Branch hours as needed for Nausea and Vomiting (N/V). traMADol No [id number] 100mg Take 1 [facility] n[facility] 100 mg [...] mouth 2 ity of capsule 02:27: (two) [place] 44 times Medical daily. Branch chlordiazeP 2018-04 Yes 10mg Take 10 mg [facility] OXIDE 10 mg 0-27 by mouth 3 it y of capsule 02:27: (three) [place] 44 times Medical daily. Branch meloxicam 2018-04 [...] 3 it y of capsule 02:27: (three) [place] 44 times Medical daily. Branch meloxicam 2018-04 [...] 44 daily. Medical Branch ondansetron 2018-04 Yes [id number] 4mg Take 1 [facility] 4 mg tablet 0-26 tablet by ity of 00:00: mouth [place] 00 every 8 Medical (eight) Branch hours as needed for Nausea and Vomiting (N/V). ondansetron 2018-04 Yes [id number] 4mg Take 1 [facility] 4 mg tablet 0-26 tablet by ity of 00:00: mouth [place] 00 every 8 Medical (eight) Branch hours as needed for Nausea and Vomiting (N/V). ondansetron 2018-04 Yes [id number] 4mg Take 1 [facility] 4 mg tablet 0-26 tablet by ity of 00:00: mouth [place] 00 every 8 Medical (eight) Branch hours as needed for Nausea and Vomiting (N/V). ondansetron 2018-04 Yes [id number] 4mg Take 1 [facility] 4 mg tablet 0-26 tablet by ity of 00:00: mouth [place] 00 every 8 Medical (eight) Branch hours as needed for Nausea and Vomiting (N/V). ondansetron 2018-04 Yes [id number] 4mg Take 1 [facility] 4 mg tablet 0-26 tablet by ity of 00:00: mouth [place] 00 every 8 Medical (eight) Branch hours as needed for Nausea and Vomiting (N/V). ondansetron 2018-04 Yes [id number] 4mg Take 1 [facility] 4 mg tablet 0-26 tablet by ity of 00:00: mouth [place] 00 every 8 Medical (eight) Branch hours as needed for Nausea and Vomiting (N/V). ondansetron 2018-04 2020- No [id number] 4mg Take 1 [facility] 4 mg tablet 0-26 10-26 tablet by it y of 00:00: 00:00 mouth [place] 00 :00 every 8 Medical (eight) Branch hours as needed for Nausea and Vomiting (N/V). losartan Yes [id number] 100mg Take 1 [facility] you 100 mg 9-23 tablet by ity of tablet 00:00: mouth [place] 00 daily. Medical Branch losartan 0 Yes [id number] 100mg Take 1 [facility] 100 mg 9-23 tablet by ity of tablet 00:00: mouth [place] 00 daily. Medical Branch losartan Yes [id number] 100mg Take 1 [facility] 100 mg 9-23 tablet by ity of tablet 00:00: mouth [place] 00 daily. Medical Branch losartan 2018-0 Yes [id number] 100mg Take 1 [facility] 100 mg 9-23 tablet by ity of tablet 00:00: mouth [place] 00 daily. Medical Branch losartan 2019-0 Yes [id number] 100mg Take 1 [facility] 100 mg 9-23 tablet by ity of tablet 00:00: mouth [place] 00 daily. Medical Branch losartan 2018-0 Yes [id number] 100mg Take 1 [facility] 100 mg 9-23 tablet by ity of tablet 00:00: mouth [place] 00 daily. Medical Branch losartan 2018-0 Yes [id number] 100mg Take 1 [facility] 100 mg 9-23 tablet by ity of tablet 00:00: mouth [place] 00 daily. Medical Branch losartan 2019-0 Yes [id number] 100mg Take 1 [facility] 100 mg 9-23 tablet by ity of tablet 00:00: mouth [place] 00 daily. Medical Branch losartan 2018-0 Yes [id number] 100mg Take 1 [facility] 100 mg 9-23 tablet by ity of tablet 00:00: mouth [place] 00 daily. Medical Branch losartan 2018-0 Yes [id number] 100mg Take 1 [facility] 100 mg 9-23 tablet by ity of tablet 00:00: mouth [place] 00 daily. Medical Branch losartan 2018-0 Yes [id number] 100mg Take 1 [facility] 100 mg 9-23 tablet by ity of tablet 00:00: mouth [place] 00 daily. Medical Branch losartan 2018-0 Yes [id number] 100mg Take 1 [facility] 100 mg 9-23 tablet by ity of tablet 00:00: mouth [place] 00 daily. Medical Branch losartan 2018-0 Yes [id number] 100mg Take 1 [facility] 100 mg 9-23 tablet by ity of tablet 00:00: mouth [place] 00 daily. Medical Branch losartan 2018-0 Yes [id number] 100mg Take 1 [facility] 100 mg 9-23 tablet by ity of tablet 00:00: mouth [place] 00 daily. Medical Branch losartan 2018-0 Yes [id number] 100mg Take 1 [facility] 100 mg 9-23 tablet by ity of tablet 00:00: mouth [place] 00 daily. Medical Branch losartan 2019-0 Yes [id number] 100mg Take 1 [facility] 100 mg 9-23 tablet by ity of tablet 00:00: mouth [place] 00 daily. Medical Branch losartan 2019-0 Yes [id number] 100mg Take 1 [facility] 100 mg 9-23 tablet by ity of tablet 00:00: mouth [place] 00 daily. Medical Branch losartan 2019-0 Yes [id number] 100mg Take 1 [facility] 100 mg 9-23 tablet by ity of tablet 00:00: mouth [place] 00 daily. Medical Branch losartan 2019-0 Yes [id number] 100mg Take 1 [facility] 100 mg 9-23 tablet by ity of tablet 00:00: mouth [place] 00 daily. Medical Branch losartan 2019-0 Yes [id number] 100mg Take 1 [facility] 100 mg 9-23 tablet by ity of tablet 00:00: mouth [place] 00 daily. Medical Branch losartan 2019-0 Yes [id number] 100mg Take 1 [facility] 100 mg 9-23 tablet by ity of tablet 00:00: mouth [place] 00 daily. Medical Branch losartan Yes [id number] 100mg Take 1 [facility] 100 mg 9-23 tablet by ity of tablet 00:00: mouth [place] 00 daily. Medical Branch losartan Yes [id number] 100mg Take 1 [facility] 100 mg 9-23 tablet by ity of tablet 00:00: mouth [place] 00 daily. Medical Branch losartan Yes [id number] 100mg Take 1 [facility] you 100 mg 9-23 tablet by ity of tablet 00:00: mouth [place] 00 daily. Medical Branch losartan 2018-2020- No [id number] 100mg Take 1 U nivers 100 mg 9-23 04-05 tablet by ity of tablet 00:00: 00:00 mouth [place] 00 :00 daily. Medical Branch losartan 2018-2020- No [id number] 100mg Take 1 [facility] nivers 100 mg 9- 04-05 tablet by ity of tablet 00:00: 00:00 mouth [place] 00 :00 daily. Medical Branch traMADol 50 Yes [id number] 1 by mouth [facility] mg tablet 12-05 [id number] every 4-6 ity of 00:00: hours as [place] 00 needed for Medical pain Branch traMADol 50 Yes [id number] 1 by mouth [facility] mg tablet 12-05 [id number] every 4-6 ity of 00:00: hours as [place] 00 needed for Medical pain Branch traMADol 50 Yes [id number] 1 by mouth [facility] mg tablet 12-05 [id number] every 4-6 ity of 00:00: hours as [place] 00 needed for Medical pain Branch traMADol 50 Yes [id number] 1 by mouth [facility] mg tablet - [id number] every 4-6 ity of 00:00: hours as [place] 00 needed for Medical pain Branch traMADol 50 2018- Yes [id number] 1 by mouth [facility] mg tablet - [id number] every 4-6 ity of 00:00: hours as [place] 00 needed for Medical pain Branch traMADol 50 Yes [id number] 1 by mouth [facility] mg tablet - [id number] every 4-6 ity of 00:00: hours as [place] 00 needed for Medical pain Branch traMADol 50 Yes [id number] 1 by mouth [facility] mg tablet 12-05 [id number] every 4-6 ity of 00:00: hours as [place] 00 needed for Medical pain Branch traMADol 50 2019-0 Yes [id number] 1 by mouth [facility] mg tablet 8- [id number] every 4-6 ity of 00:00: hours as [place] 00 needed for Medical pain Branch traMADol 50 2019-0 Yes [id number] 1 by mouth [facility] mg tablet 8- [id number] every 4-6 ity of 00:00: hours as [place] 00 needed for Medical pain Branch traMADol 50 2019-0 Yes [id number] 1 by mouth [facility] mg tablet 12-05 [id number] every 4-6 ity of 00:00: hours as [place] 00 needed for Medical pain Branch traMADol 50 2019-0 Yes [id number] 1 by mouth [facility] mg tablet 12-05 [id number] every 4-6 ity of 00:00: hours as [place] 00 needed for Medical pain Branch traMADol 50 2019-0 Yes [id number] 1 by mouth [facility] mg tablet 12-05 [id number] every 4-6 ity of 00:00: hours as [place] 00 needed for Medical pain Branch traMADol 50 2019-0 Yes [id number] 1 by mouth [facility] mg tablet 12-05 [id number] every 4-6 ity of 00:00: hours as [place] 00 needed for Medical pain Branch traMADol 50 2019-0 Yes [id number] 1 by mouth [facility] mg tablet 12-05 [id number] every 4-6 ity of 00:00: hours as [place] 00 needed for Medical pain Branch traMADol 50 2019-0 Yes [id number] 1 by mouth [facility] mg tablet 12-05 [id number] every 4-6 ity of 00:00: hours as [place] 00 needed for Medical pain Branch traMADol 50 2019-0 Yes [id number] 1 by mouth [facility] mg tablet 8- [id number] every 4-6 ity of 00:00: hours as [place] 00 needed for Medical pain Branch traMADol 50 2019-0 Yes [id number] 1 by mouth [facility] mg tablet 8- [id number] every 4-6 ity of 00:00: hours as [place] 00 needed for Medical pain Branch traMADol 50 2019-0 2020- No [id number] 1 by mouth [facility] mg tablet 8-02-07 [id number] every 4-6 it y of 00:00: 00:00 hours as [place] 00 :00 needed for Medical pain Branch ondansetron 2019- No 4mg 4 mg, Slow [facility] (ZOFRAN 12-01 IV Push, ity of (PF)) 22:45: 22:25 ONCE, 1 [place] injection 4 00 :00 dose, Mon Med ical mg 12/01/18 at Branch 1745, [place] morpHINE 2019- No 4mg 4 mg, Slow Un you injection 4 12-01 IV Push, ity of mg 22:45: 22:26 ONCE, 1 [place] 00 :00 dose, Mon Medical 12/01/18 at Branch 1745, Routine ketorolac 2019- No 30mg 30 mg, Unive rs (TORADOL) 12-01 Slow IV ity of injection 20:45: 19:47 Push, [place] 30 mg 00 :00 ONCE, 1 Medical dose, [facility] Branch 12/01/18 at 1545, [place]
Fa culty member approving Restricted medication : Jaki POLANCO LOSARTAN Yes 100mg Take 100 Univ ers POTASSIUM 8-05 mg by ity of (LOSARTAN 21:38: mouth [place] ORAL) 24 daily. Medical Branch gabapentin Yes 300mg Take 300 Un you (NEURONTIN) 8-05 mg by ity of 300 mg 21:38: mouth 2 [place] capsule 24 (two) Medical times Branch daily. QUEtiapine Yes 100mg Take 100 Un you (SEROQUEL) [...] s mg tablet 24 Medical Branch divalproex 2018-0 Yes 125mg Take 125 Un you (DEPAKOTE) [...] s tablet 24 bedtime. Medical Branch diazepam 0 Yes 1mg Take 1 mg Univ ers [...] s tablet 24 bedtime. Medical Branch diazepam 0 Yes 1mg Take 1 mg [facility] ers [...] [place] ORAL) 24 daily. Medical Branch gabapentin 20190 Yes 300mg Take 300 Un you (NEURONTIN) [...] s tablet 24 bedtime. Medical Branch diazepam 0 Yes 1mg Take 1 mg [facility] ers [...] No 75ug 75 mcg, Un you (SUBLIMAZE 8-05 08-05 Slow IV ity o f (PF)) 02:15: 01:11 Push, [place] injection 00 :00 ONCE, 1 Medical 75 mcg dose, [facility] 11/16/18 at 2115, [place] pantoprazol Yes [id number] 40mg Take 1 [facility] e 40 mg EC 8-05 tablet by ity of tablet 00:00: mouth 2 [place] 00 (two) Medical times Branch daily. proMETHazin Yes [id number] 25mg Take 1 [facility] e 25 mg 8-05 tablet by ity of tablet 00:00: mouth [place] 00 every 6 Medical (six) Branch hours as needed for N/V alternatin g with Ondansetro n. HYDROcodone 2018- Yes [id number] 1{tbl} Take 1 [facility] -acetaminop 8-05 tablet by ity of hen 7.5-325 00:00: mouth [place] mg per 00 every 6 Medical tablet (six) Branch hours as needed (Pain scal 7-10). pantoprazol Yes [id number] 40mg Take 1 [facility] e 40 mg EC 8-05 tablet by ity of tablet 00:00: mouth 2 (two) Medical times Branch daily. proMETHazin Yes [id number] 25mg Take 1 [facility] e 25 mg 8-05 tablet by ity of tablet 00:00: mouth [place] 00 every 6 Medical (six) Branch hours as needed for N/V alternatin g with Ondansetro n. HYDROcodone Yes [id number] 1{tbl} Take 1 [facility] -acetaminop 8-05 tablet by ity of hen 7.5-325 00:00: mouth [place] mg per 00 every 6 Medical tablet (six) Branch hours as needed (Pain scal 7-10). pantoprazol Yes [id number] 40mg Take 1 [facility] e 40 mg EC 8-05 tablet by ity of tablet 00:00: mouth 2 (two) Medical times Branch daily. proMETHazin Yes [id number] 25mg Take 1 [facility] e 25 mg 8-05 tablet by ity of tablet 00:00: mouth [place] 00 every 6 Medical (six) Branch hours as needed for N/V alternatin g with Ondansetro n. HYDROcodone Yes [id number] 1{tbl} Take 1 [facility] -acetaminop 8-05 tablet by ity of hen 7.5-325 00:00: mouth [place] mg per 00 every 6 Medical tablet (six) Branch hours as needed (Pain scal 7-10). pantoprazol Yes [id number] 40mg Take 1 [facility] e 40 mg EC 8-05 tablet by ity of tablet 00:00: mouth 2 (two) Medical times Branch daily. proMETHazin Yes [id number] 25mg Take 1 [facility] e 25 mg 8-05 tablet by ity of tablet 00:00: mouth [place] 00 every 6 Medical (six) Branch hours as needed for N/V alternatin g with Ondansetro n. HYDROcodone 2018- Yes [id number] 1{tbl} Take 1 [facility] -acetaminop 8-05 tablet by ity of hen 7.5-325 00:00: mouth [place] mg per 00 every 6 Medical tablet (six) Branch hours as needed (Pain scal 7-10). pantoprazol 2018- Yes [id number] 40mg Take 1 [facility] e 40 mg EC 8-05 tablet by ity of tablet 00:00: mouth 2 [place] 00 (two) Medical times Branch daily. proMETHazin Yes [id number] 25mg Take 1 [facility] e 25 mg 8-05 tablet by ity of tablet 00:00: mouth [place] 00 every 6 Medical (six) Branch hours as needed for N/V alternatin g with Ondansetro n. HYDROcodone Yes [id number] 1{tbl} Take 1 [facility] -acetaminop 8-05 tablet by ity of hen 7.5-325 00:00: mouth [place] mg per 00 every 6 Medical tablet (six) Branch hours as needed (Pain scal 7-10). pantoprazol Yes [id number] 40mg Take 1 [facility] e 40 mg EC 8-05 tablet by ity of tablet 00:00: mouth 2 [place] 00 (two) Medical times Branch daily. proMETHazin Yes [id number] 25mg Take 1 [facility] e 25 mg 8-05 tablet by ity of tablet 00:00: mouth [place] 00 every 6 Medical (six) Branch hours as needed for N/V alternatin g with Ondansetro n. HYDROcodone Yes [id number] 1{tbl} Take 1 [facility] -acetaminop 8-05 tablet by ity of hen 7.5-325 00:00: mouth [place] mg per 00 every 6 Medical tablet (six) Branch hours as needed (Pain scal 7-10). pantoprazol Yes [id number] 40mg Take 1 [facility] e 40 mg EC 8-05 tablet by ity of tablet 00:00: mouth 2 (two) Medical times Branch daily. proMETHazin Yes [id number] 25mg Take 1 [facility] e 25 mg 8-05 tablet by ity of tablet 00:00: mouth [place] 00 every 6 Medical (six) Branch hours as needed for N/V alternatin g with Ondansetro n. HYDROcodone Yes [id number] 1{tbl} Take 1 [facility] -acetaminop 8-05 tablet by ity of hen 7.5-325 00:00: mouth [place] mg per 00 every 6 Medical tablet (six) Branch hours as needed (Pain scal 7-10). pantoprazol Yes [id number] 40mg Take 1 [facility] e 40 mg EC 8-05 tablet by ity of tablet 00:00: mouth 2 [place] 00 (two) Medical times Branch daily. proMETHazin Yes [id number] 25mg Take 1 [facility] e 25 mg 8-05 tablet by ity of tablet 00:00: mouth [place] 00 every 6 Medical (six) Branch hours as needed for N/V alternatin g with Ondansetro n. HYDROcodone Yes [id number] 1{tbl} Take 1 [facility] -acetaminop 8-05 tablet by ity of hen 7.5-325 00:00: mouth [place] mg per 00 every 6 Medical tablet (six) Branch hours as needed (Pain scal 7-10). pantoprazol Yes [id number] 40mg Take 1 [facility] e 40 mg EC 8-05 tablet by ity of tablet 00:00: mouth 2 (two) Medical times Branch daily. proMETHazin Yes [id number] 25mg Take 1 [facility] e 25 mg 8-05 tablet by ity of tablet 00:00: mouth [place] 00 every 6 Medical (six) Branch hours as needed for N/V alternatin g with Ondansetro n. HYDROcodone Yes [id number] 1{tbl} Take 1 [facility] -acetaminop 8-05 tablet by ity of hen 7.5-325 00:00: mouth [place] mg per 00 every 6 Medical tablet (six) Branch hours as needed (Pain scal 7-10). pantoprazol Yes [id number] 40mg Take 1 [facility] e 40 mg EC 8-05 tablet by ity of tablet 00:00: mouth 2 (two) Medical times Branch daily. proMETHazin Yes [id number] 25mg Take 1 [facility] e 25 mg 8-05 tablet by ity of tablet 00:00: mouth [place] 00 every 6 Medical (six) Branch hours as needed for N/V alternatin g with Ondansetro n. HYDROcodone Yes [id number] 1{tbl} Take 1 [facility] -acetaminop 8-05 tablet by ity of hen 7.5-325 00:00: mouth [place] mg per 00 every 6 Medical tablet (six) Branch hours as needed (Pain scal 7-10). pantoprazol Yes [id number] 40mg Take 1 [facility] e 40 mg EC 8-05 tablet by ity of tablet 00:00: mouth 2 [place] 00 (two) Medical times Branch daily. proMETHazin Yes [id number] 25mg Take 1 [facility] e 25 mg 8-05 tablet by ity of tablet 00:00: mouth [place] 00 every 6 Medical (six) Branch hours as needed for N/V alternatin g with Ondansetro n. HYDROcodone Yes [id number] 1{tbl} Take 1 [facility] -acetaminop 8-05 tablet by ity of hen 7.5-325 00:00: mouth [place] mg per 00 every 6 Medical tablet (six) Branch hours as needed (Pain scal 7-10). pantoprazol Yes [id number] 40mg Take 1 [facility] e 40 mg EC 8-05 tablet by ity of tablet 00:00: mouth 2 [place] 00 (two) Medical times Branch daily. proMETHazin Yes [id number] 25mg Take 1 [facility] e 25 mg 8-05 tablet by ity of tablet 00:00: mouth [place] 00 every 6 Medical (six) Branch hours as needed for N/V alternatin g with Ondansetro n. HYDROcodone Yes [id number] 1{tbl} Take 1 [facility] -acetaminop 8-05 tablet by ity of hen 7.5-325 00:00: mouth [place] mg per 00 every 6 Medical tablet (six) Branch hours as needed (Pain scal 7-10). pantoprazol Yes [id number] 40mg Take 1 [facility] e 40 mg EC 8-05 tablet by ity of tablet 00:00: mouth 2 [place] 00 (two) Medical times Branch daily. proMETHazin Yes [id number] 25mg Take 1 [facility] e 25 mg 8-05 tablet by ity of tablet 00:00: mouth [place] 00 every 6 Medical (six) Branch hours as needed for N/V alternatin g with Ondansetro n. HYDROcodone Yes [id number] 1{tbl} Take 1 [facility] -acetaminop 8-05 tablet by ity of hen 7.5-325 00:00: mouth [place] mg per 00 every 6 Medical tablet (six) Branch hours as needed (Pain scal 7-10). pantoprazol Yes [id number] 40mg Take 1 Univers e 40 mg EC 8-05 tablet by ity of tablet 00:00: mouth 2 [place] 00 (two) Medical times Branch daily. proMETHazin Yes [id number] 25mg Take 1 [facility] e 25 mg 8-05 tablet by ity of tablet 00:00: mouth [place] 00 every 6 Medical (six) Branch hours as needed for N/V alternatin g with Ondansetro n. HYDROcodone Yes [id number] 1{tbl} Take 1 [facility] -acetaminop 8-05 tablet by ity of hen 7.5-325 00:00: mouth [place] mg per 00 every 6 Medical tablet (six) Branch hours as needed (Pain scal 7-10). pantoprazol Yes [id number] 40mg Take 1 [facility] e 40 mg EC 8-05 tablet by ity of tablet 00:00: mouth 2 [place] 00 (two) Medical times Branch daily. proMETHazin Yes [id number] 25mg Take 1 [facility] e 25 mg 8-05 tablet by ity of tablet 00:00: mouth [place] 00 every 6 Medical (six) Branch hours as needed for N/V alternatin g with Ondansetro n. HYDROcodone Yes [id number] 1{tbl} Take 1 [facility] -acetaminop 8-05 tablet by ity of hen 7.5-325 00:00: mouth [place] mg per 00 every 6 Medical tablet (six) Branch hours as needed (Pain scal 7-10). pantoprazol Yes [id number] 40mg Take 1 Univers e 40 mg EC 8-05 tablet by ity of tablet 00:00: mouth 2 [place] 00 (two) Medical times Branch daily. proMETHazin Yes [id number] 25mg Take 1 [facility] e 25 mg 8-05 tablet by ity of tablet 00:00: mouth [place] 00 every 6 Medical (six) Branch hours as needed for N/V alternatin g with Ondansetro n. HYDROcodone Yes [id number] 1{tbl} Take 1 [facility] -acetaminop 8-05 tablet by ity of hen 7.5-325 00:00: mouth [place] mg per 00 every 6 Medical tablet (six) Branch hours as needed (Pain scal 7-10). pantoprazol Yes [id number] 40mg Take 1 [facility] e 40 mg EC 8-05 tablet by ity of tablet 00:00: mouth 2 [place] 00 (two) Medical times Branch daily. proMETHazin Yes [id number] 25mg Take 1 [facility] e 25 mg 8-05 tablet by ity of tablet 00:00: mouth [place] 00 every 6 Medical (six) Branch hours as needed for N/V alternatin g with Ondansetro n. HYDROcodone Yes [id number] 1{tbl} Take 1 [facility] -acetaminop 8-05 tablet by ity of hen 7.5-325 00:00: mouth [place] mg per 00 every 6 Medical tablet (six) Branch hours as needed (Pain scal 7-10). pantoprazol Yes [id number] 40mg Take 1 Univers e 40 mg EC 8-05 tablet by ity of tablet 00:00: mouth 2 (two) Medical times Branch daily. proMETHazin Yes [id number] 25mg Take 1 [facility] e 25 mg 8-05 tablet by ity of tablet 00:00: mouth [place] 00 every 6 Medical (six) Branch hours as needed for N/V alternatin g with Ondansetro n. HYDROcodone Yes [id number] 1{tbl} Take 1 [facility] -acetaminop 8-05 tablet by ity of hen 7.5-325 00:00: mouth [place] mg per 00 every 6 Medical tablet (six) Branch hours as needed (Pain scal 7-10). pantoprazol Yes [id number] 40mg Take 1 Univers e 40 mg EC 8-05 tablet by ity of tablet 00:00: mouth 2 00 (two) Medical times Branch daily. proMETHazin Yes [id number] 25mg Take 1 [facility] e 25 mg 8-05 tablet by ity of tablet 00:00: mouth [place] 00 every 6 Medical (six) Branch hours as needed for N/V alternatin g with Ondansetro n. HYDROcodone Yes [id number] 1{tbl} Take 1 [facility] -acetaminop 8-05 tablet by [facility] hen 7.5-325 00:00: mouth [place] mg per 00 every 6 Medical tablet (six) Branch hours as needed (Pain scal 7-10). HYDROcodone Yes [id number] 1{tbl} Take 1 [facility] -acetaminop 8-05 tablet by [facility] hen 7.5-325 00:00: mouth [place] mg per 00 every 6 Medical tablet (six) Branch hours as needed (Pain scal 7-10). HYDROcodone Yes [id number] 1{tbl} Take 1 [facility] -acetaminop 8-05 tablet by [facility] hen 7.5-325 00:00: mouth [place] mg per 00 every 6 Medical tablet (six) Branch hours as needed (Pain scal 7-10). HYDROcodone Yes [id number] 1{tbl} Take 1 [facility] -acetaminop 8-05 tablet by [facility] hen 7.5-325 00:00: mouth [place] mg per 00 every 6 Medical tablet (six) Branch hours as needed (Pain scal 7-10). HYDROcodone Yes [id number] 1{tbl} Take 1 [facility] -acetaminop 8-05 tablet by [facility] hen 7.5-325 00:00: mouth [place] mg per 00 every 6 Medical tablet (six) Branch hours as needed (Pain scal 7-10). HYDROcodone Yes [id number] 1{tbl} Take 1 [facility] -acetaminop 8-05 tablet by [facility] hen 7.5-325 00:00: mouth [place] mg per 00 every 6 Medical tablet (six) Branch hours as needed (Pain scal 7-10). HYDROcodone Yes [id number] 1{tbl} Take 1 [facility] -acetaminop 8-05 tablet by [facility] of hen 7.5-325 00:00: mouth [place] mg per 00 every 6 Medical tablet (six) Branch hours as needed (Pain scal 7-10). HYDROcodone Yes [id number] 1{tbl} Take 1 [facility] -acetaminop 8-05 tablet by [facility] of hen 7.5-325 00:00: mouth [place] mg per 00 every 6 Medical tablet (six) Branch hours as needed (Pain scal 7-10). HYDROcodone Yes [id number] 1{tbl} Take 1 [facility] -acetaminop 8-05 tablet by [facility] of hen 7.5-325 00:00: mouth [place] mg per 00 every 6 Medical tablet (six) Branch hours as needed (Pain scal 7-10). HYDROcodone Yes [id number] 1{tbl} Take 1 [facility] -acetaminop 8-05 tablet by [facility] of hen 7.5-325 00:00: mouth [place] mg per 00 every 6 Medical tablet (six) Branch hours as needed (Pain scal 7-10). HYDROcodone Yes [id number] 1{tbl} Take 1 [facility] -acetaminop 8-05 tablet by [facility] of hen 7.5-325 00:00: mouth [place] mg per 00 every 6 Medical tablet (six) Branch hours as needed (Pain scal 7-10). HYDROcodone Yes [id number] 1{tbl} Take 1 [facility] -acetaminop 8-05 tablet by [facility] hen 7.5-325 00:00: mouth [place] mg per 00 every 6 Medical tablet (six) Branch hours as needed (Pain scal 7-10). HYDROcodone Yes [id number] 1{tbl} Take 1 [facility] -acetaminop 8-05 tablet by [facility] of hen 7.5-325 00:00: mouth [place] mg per 00 every 6 Medical tablet (six) Branch hours as needed (Pain scal 7-10). HYDROcodone Yes [id number] 1{tbl} Take 1 [facility] -acetaminop 8-05 tablet by [facility] of hen 7.5-325 00:00: mouth [place] mg per 00 every 6 Medical tablet (six) Branch hours as needed (Pain scal 7-10). HYDROcodone Yes [id number] 1{tbl} Take 1 [facility] -acetaminop 8-05 tablet by [facility] of hen 7.5-325 00:00: mouth [place] mg per 00 every 6 Medical tablet (six) Branch hours as needed (Pain scal 7-10). HYDROcodone Yes [id number] 1{tbl} Take 1 [facility] -acetaminop 8-05 tablet by [facility] of hen 7.5-325 00:00: mouth [place] mg per 00 every 6 Medical tablet (six) Branch hours as needed (Pain scal 7-10). HYDROcodone Yes [id number] 1{tbl} Take 1 [facility] -acetaminop 8-05 tablet by [facility] of hen 7.5-325 00:00: mouth [place] mg per 00 every 6 Medical tablet (six) Branch hours as needed (Pain scal 7-10). HYDROcodone Yes [id number] 1{tbl} Take 1 [facility] -acetaminop 8-05 tablet by [facility] of hen 7.5-325 00:00: mouth [place] mg per 00 every 6 Medical tablet (six) Branch hours as needed (Pain scal 7-10). HYDROcodone Yes [id number] 1{tbl} Take 1 [facility] -acetaminop 8-05 tablet by [facility] of hen 7.5-325 00:00: mouth [place] mg per 00 every 6 Medical tablet (six) Branch hours as needed (Pain scal 7-10). HYDROcodone Yes [id number] 1{tbl} Take 1 [facility] -acetaminop 8-05 tablet by [facility] of hen 7.5-325 00:00: mouth [place] mg per 00 every 6 Medical tablet (six) Branch hours as needed (Pain scal 7-10). HYDROcodone Yes [id number] 1{tbl} Take 1 [facility] -acetaminop 8-05 tablet by [facility] of hen 7.5-325 00:00: mouth [place] mg per 00 every 6 Medical tablet (six) Branch hours as needed (Pain scal 7-10). HYDROcodone Yes [id number] 1{tbl} Take 1 [facility] -acetaminop 8-05 tablet by [facility] of hen 7.5-325 00:00: mouth [place] mg per 00 every 6 Medical tablet (six) Branch hours as needed (Pain scal 7-10). HYDROcodone Yes [id number] 1{tbl} Take 1 [facility] -acetaminop 8-05 tablet by [facility] of hen 7.5-325 00:00: mouth [place] mg per 00 every 6 Medical tablet (six) Branch hours as needed (Pain scal 7-10). HYDROcodone Yes [id number] 1{tbl} Take 1 [facility] -acetaminop 8-05 tablet by [facility] of hen 7.5-325 00:00: mouth [place] mg per 00 every 6 Medical tablet (six) Branch hours as needed (Pain scal 7-10). HYDROcodone Yes [id number] 1{tbl} Take 1 [facility] -acetaminop 8-05 tablet by [facility] of hen 7.5-325 00:00: mouth [place] mg per 00 every 6 Medical tablet (six) Branch hours as needed (Pain scal 7-10). HYDROcodone Yes [id number] 1{tbl} Take 1 [facility] -acetaminop 8-05 tablet by [facility] of hen 7.5-325 00:00: mouth [place] mg per 00 every 6 Medical tablet (six) Branch hours as needed (Pain scal 7-10). HYDROcodone Yes [id number] 1{tbl} Take 1 [facility] -acetaminop 8-05 tablet by [facility] of hen 7.5-325 00:00: mouth [place] mg per 00 every 6 Medical tablet (six) Branch hours as needed (Pain scal 7-10). HYDROcodone Yes [id number] 1{tbl} Take 1 [facility] -acetaminop 8-05 tablet by [facility] of hen 7.5-325 00:00: mouth [place] mg per 00 every 6 Medical tablet (six) Branch hours as needed (Pain scal 7-10). HYDROcodone Yes [id number] 1{tbl} Take 1 [facility] -acetaminop 8-05 tablet by [facility] of hen 7.5-325 00:00: mouth [place] mg per 00 every 6 Medical tablet (six) Branch hours as needed (Pain scal 7-10). HYDROcodone Yes [id number] 1{tbl} Take 1 [facility] -acetaminop 8-05 tablet by [facility] hen 7.5-325 00:00: mouth [place] mg per 00 every 6 Medical tablet (six) Branch hours as needed (Pain scal 7-10). HYDROcodone Yes [id number] 1{tbl} Take 1 [facility] -acetaminop 8-05 tablet by [facility] hen 7.5-325 00:00: mouth [place] mg per 00 every 6 Medical tablet (six) Branch hours as needed (Pain scal 7-10). pantoprazol Yes [id number] 40mg Take 1 [facility] e 40 mg EC 8-05 tablet by ity of tablet 00:00: mouth 2 [place] 00 (two) Medical times Branch daily. ondansetron Yes [id number] 4mg Take 1 [facility] 4 mg tablet 8-05 tablet by ity of 00:00: mouth [place] 00 every 8 Medical (eight) Branch hours as needed for Nausea and Vomiting (N/V). proMETHazin 2019-0 Yes [id number] 25mg Take 1 [facility] e 25 mg 8-05 tablet by ity of tablet 00:00: mouth [place] 00 every 6 Medical (six) Branch hours as needed for N/V alternatin g with Ondansetro n. HYDROcodone 2018- Yes [id number] 1{tbl} Take 1 [facility] -acetaminop 8-05 tablet by [facility] of hen 7.5-325 00:00: mouth [place] mg per 00 every 6 Medical tablet (six) Branch hours as needed (Pain scal 7-10). pantoprazol Yes [id number] 40mg Take 1 [facility] e 40 mg EC 8-05 tablet by ity of tablet 00:00: mouth 2 [place] 00 (two) Medical times Branch daily. ondansetron 2018- Yes [id number] 4mg Take 1 [facility] 4 mg tablet 8-05 tablet by ity of 00:00: mouth [place] 00 every 8 Medical (eight) Branch hours as needed for Nausea and Vomiting (N/V). proMETHazin Yes [id number] 25mg Take 1 [facility] e 25 mg 8-05 tablet by [facility]y of tablet 00:00: mouth [place] 00 every 6 Medical (six) Branch hours as needed for N/V alternatin g with Ondansetro n. HYDROcodone 2018- Yes [id number] 1{tbl} Take 1 [facility] -acetaminop 8-05 tablet by [facility] of hen 7.5-325 00:00: mouth [place] mg per 00 every 6 Medical tablet (six) Branch hours as needed (Pain scal 7-10). pantoprazol 2018- Yes [id number] 40mg Take 1 [facility] e 40 mg EC 8-05 tablet by [facility]y of tablet 00:00: mouth 2 [place] 00 (two) Medical times Branch daily. ondansetron 2018-0 Yes [id number] 4mg Take 1 [facility] 4 mg tablet 8-05 tablet by ity of 00:00: mouth [place] 00 every 8 Medical (eight) Branch hours as needed for Nausea and Vomiting (N/V). proMETHazin 2018- Yes [id number] 25mg Take 1 [facility] e 25 mg 8-05 tablet by [facility]y of tablet 00:00: mouth [place] 00 every 6 Medical (six) Branch hours as needed for N/V alternatin g with Ondansetro n. HYDROcodone Yes [id number] 1{tbl} Take 1 [facility] -acetaminop 8-05 tablet by [facility] of hen 7.5-325 00:00: mouth [place] mg per 00 every 6 Medical tablet (six) Branch hours as needed (Pain scal 7-10). pantoprazol Yes [id number] 40mg Take 1 [facility] e 40 mg EC 8-05 tablet by [facility]y of tablet 00:00: mouth 2 [place] 00 (two) Medical times Branch daily. ondansetron Yes [id number] 4mg Take 1 [facility] 4 mg tablet 8-05 tablet by ity of 00:00: mouth [place] 00 every 8 Medical (eight) Branch hours as needed for Nausea and Vomiting (N/V). proMETHazin Yes [id number] 25mg Take 1 [facility] e 25 mg 8-05 tablet by ity of tablet 00:00: mouth [place] 00 every 6 Medical (six) Branch hours as needed for N/V alternatin g with Ondansetro n. HYDROcodone Yes [id number] 1{tbl} Take 1 [facility] -acetaminop 8-05 tablet by [facility] of hen 7.5-325 00:00: mouth [place] mg per 00 every 6 Medical tablet (six) Branch hours as needed (Pain scal 7-10). pantoprazol Yes [id number] 40mg Take 1 [facility] e 40 mg EC 8-05 tablet by ity of tablet 00:00: mouth 2 [place] 00 (two) Medical times Branch daily. ondansetron Yes [id number] 4mg Take 1 [facility] 4 mg tablet 8-05 tablet by ity of 00:00: mouth [place] 00 every 8 Medical (eight) Branch hours as needed for Nausea and Vomiting (N/V). proMETHazin Yes [id number] 25mg Take 1 [facility] e 25 mg 8-05 tablet by ity of tablet 00:00: mouth [place] 00 every 6 Medical (six) Branch hours as needed for N/V alternatin g with Ondansetro n. HYDROcodone Yes [id number] 1{tbl} Take 1 [facility] -acetaminop 8-05 tablet by [facility] of hen 7.5-325 00:00: mouth [place] mg per 00 every 6 Medical tablet (six) Branch hours as needed (Pain scal 7-10). pantoprazol 2018-0 Yes [id number] 40mg Take 1 [facility] e 40 mg EC 8-05 tablet by ity of tablet 00:00: mouth 2 [place] 00 (two) Medical times Branch daily. ondansetron 2018- Yes [id number] 4mg Take 1 [facility] 4 mg tablet 8-05 tablet by ity of 00:00: mouth [place] 00 every 8 Medical (eight) Branch hours as needed for Nausea and Vomiting (N/V). proMETHazin 2018- Yes [id number] 25mg Take 1 [facility] e 25 mg 8-05 tablet by ity of tablet 00:00: mouth [place] 00 every 6 Medical (six) Branch hours as needed for N/V alternatin g with Ondansetro n. HYDROcodone Yes [id number] 1{tbl} Take 1 [facility] -acetaminop 8-05 tablet by [facility]y of hen 7.5-325 00:00: mouth [place] mg per 00 every 6 Medical tablet (six) Branch hours as needed (Pain scal 7-10). pantoprazol Yes [id number] 40mg Take 1 [facility] e 40 mg EC 8-05 tablet by ity of tablet 00:00: mouth 2 [place] 00 (two) Medical times Branch daily. ondansetron 2018- Yes [id number] 4mg Take 1 [facility] 4 mg tablet 8-05 tablet by ity of 00:00: mouth [place] 00 every 8 Medical (eight) Branch hours as needed for Nausea and Vomiting (N/V). proMETHazin 2019-0 Yes [id number] 25mg Take 1 [facility] e 25 mg 8-05 tablet by ity of tablet 00:00: mouth [place] 00 every 6 Medical (six) Branch hours as needed for N/V alternatin g with Ondansetro n. HYDROcodone 2018-0 Yes [id number] 1{tbl} Take 1 [facility] -acetaminop 8-05 tablet by [facility] of hen 7.5-325 00:00: mouth [place] mg per 00 every 6 Medical tablet (six) Branch hours as needed (Pain scal 7-10). pantoprazol 2018- Yes [id number] 40mg Take 1 [facility] e 40 mg EC 8-05 tablet by ity of tablet 00:00: mouth 2 [place] 00 (two) Medical times Branch daily. ondansetron 2018-0 Yes [id number] 4mg Take 1 [facility] 4 mg tablet 8-05 tablet by ity of 00:00: mouth [place] 00 every 8 Medical (eight) Branch hours as needed for Nausea and Vomiting (N/V). proMETHazin 2018- Yes [id number] 25mg Take 1 [facility] e 25 mg 8-05 tablet by ity of tablet 00:00: mouth [place] 00 every 6 Medical (six) Branch hours as needed for N/V alternatin g with Ondansetro n. HYDROcodone 2018- Yes [id number] 1{tbl} Take 1 [facility] -acetaminop 8-05 tablet by [facility] of hen 7.5-325 00:00: mouth [place] mg per 00 every 6 Medical tablet (six) Branch hours as needed (Pain scal 7-10). pantoprazol Yes [id number] 40mg Take 1 [facility] e 40 mg EC 8-05 tablet by ity of tablet 00:00: mouth 2 [place] 00 (two) Medical times Branch daily. ondansetron Yes [id number] 4mg Take 1 [facility] 4 mg tablet 8-05 tablet by ity of 00:00: mouth [place] 00 every 8 Medical (eight) Branch hours as needed for Nausea and Vomiting (N/V). proMETHazin 2018-0 Yes [id number] 25mg Take 1 [facility] e 25 mg 8-05 tablet by ity of tablet 00:00: mouth [place] 00 every 6 Medical (six) Branch hours as needed for N/V alternatin g with Ondansetro n. HYDROcodone 2018-0 Yes [id number] 1{tbl} Take 1 [facility] -acetaminop 8-05 tablet by [facility] of hen 7.5-325 00:00: mouth [place] mg per 00 every 6 Medical tablet (six) Branch hours as needed (Pain scal 7-10). pantoprazol 2018-0 Yes [id number] 40mg Take 1 [facility] e 40 mg EC 8-05 tablet by ity of tablet 00:00: mouth 2 [place] 00 (two) Medical times Branch daily. ondansetron 2018- Yes [id number] 4mg Take 1 [facility] 4 mg tablet 8-05 tablet by ity of 00:00: mouth [place] 00 every 8 Medical (eight) Branch hours as needed for Nausea and Vomiting (N/V). proMETHazin 2018-0 Yes [id number] 25mg Take 1 [facility] e 25 mg 8-05 tablet by ity of tablet 00:00: mouth [place] 00 every 6 Medical (six) Branch hours as needed for N/V alternatin g with Ondansetro n. HYDROcodone Yes [id number] 1{tbl} Take 1 [facility] -acetaminop 8-05 tablet by [facility] of hen 7.5-325 00:00: mouth [place] mg per 00 every 6 Medical tablet (six) Branch hours as needed (Pain scal 7-10). pantoprazol Yes [id number] 40mg Take 1 [facility] e 40 mg EC 8-05 tablet by ity of tablet 00:00: mouth 2 [place] 00 (two) Medical times Branch daily. ondansetron Yes [id number] 4mg Take 1 [facility] 4 mg tablet 8-05 tablet by ity of 00:00: mouth [place] 00 every 8 Medical (eight) Branch hours as needed for Nausea and Vomiting (N/V). proMETHazin 2018- Yes [id number] 25mg Take 1 [facility] e 25 mg 8-05 tablet by ity of tablet 00:00: mouth [place] 00 every 6 Medical (six) Branch hours as needed for N/V alternatin g with Ondansetro n. HYDROcodone 2018- Yes [id number] 1{tbl} Take 1 [facility] -acetaminop 8-05 tablet by [facility]y of hen 7.5-325 00:00: mouth [place] mg per 00 every 6 Medical tablet (six) Branch hours as needed (Pain scal 7-10). pantoprazol 2018- Yes [id number] 40mg Take 1 [facility] e 40 mg EC 8-05 tablet by ity of tablet 00:00: mouth 2 [place] 00 (two) Medical times Branch daily. ondansetron Yes [id number] 4mg Take 1 [facility] 4 mg tablet 8-05 tablet by ity of 00:00: mouth [place] 00 every 8 Medical (eight) Branch hours as needed for Nausea and Vomiting (N/V). proMETHazin Yes [id number] 25mg Take 1 [facility] e 25 mg 8-05 tablet by ity of tablet 00:00: mouth [place] 00 every 6 Medical (six) Branch hours as needed for N/V alternatin g with Ondansetro n. HYDROcodone Yes [id number] 1{tbl} Take 1 [facility] -acetaminop 8-05 tablet by ity of hen 7.5-325 00:00: mouth [place] mg per 00 every 6 Medical tablet (six) Branch hours as needed (Pain scal 7-10). pantoprazol Yes [id number] 40mg Take 1 [facility] e 40 mg EC 8-05 tablet by ity of tablet 00:00: mouth 2 [place] 00 (two) Medical times Branch daily. ondansetron Yes [id number] 4mg Take 1 [facility] 4 mg tablet 8-05 tablet by ity of 00:00: mouth [place] 00 every 8 Medical (eight) Branch hours as needed for Nausea and Vomiting (N/V). proMETHazin Yes [id number] 25mg Take 1 [facility] e 25 mg 8-05 tablet by ity of tablet 00:00: mouth [place] 00 every 6 Medical (six) Branch hours as needed for N/V alternatin g with Ondansetro n. HYDROcodone Yes [id number] 1{tbl} Take 1 [facility] -acetaminop 8-05 tablet by ity of hen 7.5-325 00:00: mouth [place] mg per 00 every 6 Medical tablet (six) Branch hours as needed (Pain scal 7-10). pantoprazol Yes [id number] 40mg Take 1 [facility] e 40 mg EC 8-05 tablet by ity of tablet 00:00: mouth 2 [place] 00 (two) Medical times Branch daily. ondansetron Yes [id number] 4mg Take 1 [facility] 4 mg tablet 8-05 tablet by ity of 00:00: mouth [place] 00 every 8 Medical (eight) Branch hours as needed for Nausea and Vomiting (N/V). proMETHazin Yes [id number] 25mg Take 1 [facility] e 25 mg 8-05 tablet by ity of tablet 00:00: mouth [place] 00 every 6 Medical (six) Branch hours as needed for N/V alternatin g with Ondansetro n. HYDROcodone Yes [id number] 1{tbl} Take 1 [facility] -acetaminop 8-05 tablet by ity of hen 7.5-325 00:00: mouth [place] mg per 00 every 6 Medical tablet (six) Branch hours as needed (Pain scal 7-10). pantoprazol Yes [id number] 40mg Take 1 [facility] e 40 mg EC 8-05 tablet by ity of tablet 00:00: mouth 2 [place] 00 (two) Medical times Branch daily. ondansetron Yes [id number] 4mg Take 1 [facility] 4 mg tablet 8-05 tablet by ity of 00:00: mouth [place] 00 every 8 Medical (eight) Branch hours as needed for Nausea and Vomiting (N/V). proMETHazin Yes [id number] 25mg Take 1 [facility] e 25 mg 8-05 tablet by ity of tablet 00:00: mouth [place] 00 every 6 Medical (six) Branch hours as needed for N/V alternatin g with Ondansetro n. HYDROcodone Yes [id number] 1{tbl} Take 1 [facility] -acetaminop 8-05 tablet by ity of hen 7.5-325 00:00: mouth [place] mg per 00 every 6 Medical tablet (six) Branch hours as needed (Pain scal 7-10). pantoprazol Yes [id number] 40mg Take 1 [facility] e 40 mg EC 8-05 tablet by ity of tablet 00:00: mouth 2 [place] 00 (two) Medical times Branch daily. proMETHazin Yes [id number] 25mg Take 1 [facility] e 25 mg 8-05 tablet by ity of tablet 00:00: mouth [place] 00 every 6 Medical (six) Branch hours as needed for N/V alternatin g with Ondansetro n. HYDROcodone Yes [id number] 1{tbl} Take 1 [facility] -acetaminop 8-05 tablet by ity of hen 7.5-325 00:00: mouth [place] mg per 00 every 6 Medical tablet (six) Branch hours as needed (Pain scal 7-10). pantoprazol Yes [id number] 40mg Take 1 [facility] e 40 mg EC 8-05 tablet by ity of tablet 00:00: mouth 2 [place] 00 (two) Medical times Branch daily. proMETHazin Yes [id number] 25mg Take 1 [facility] e 25 mg 8-05 tablet by ity of tablet 00:00: mouth [place] 00 every 6 Medical (six) Branch hours as needed for N/V alternatin g with Ondansetro n. HYDROcodone Yes [id number] 1{tbl} Take 1 [facility] -acetaminop 8-05 tablet by ity of hen 7.5-325 00:00: mouth [place] mg per 00 every 6 Medical tablet (six) Branch hours as needed (Pain scal 7-10). pantoprazol Yes [id number] 40mg Take 1 [facility] e 40 mg EC 8-05 tablet by ity of tablet 00:00: mouth 2 (two) Medical times Branch daily. proMETHazin Yes [id number] 25mg Take 1 [facility] e 25 mg 8-05 tablet by ity of tablet 00:00: mouth [place] 00 every 6 Medical (six) Branch hours as needed for N/V alternatin g with Ondansetro n. HYDROcodone Yes [id number] 1{tbl} Take 1 [facility] -acetaminop 8-05 tablet by ity of hen 7.5-325 00:00: mouth [place] mg per 00 every 6 Medical tablet (six) Branch hours as needed (Pain scal 7-10). pantoprazol Yes [id number] 40mg Take 1 [facility] e 40 mg EC 8-05 tablet by ity of tablet 00:00: mouth 2 (two) Medical times Branch daily. proMETHazin Yes [id number] 25mg Take 1 [facility] e 25 mg 8-05 tablet by ity of tablet 00:00: mouth [place] 00 every 6 Medical (six) Branch hours as needed for N/V alternatin g with Ondansetro n. HYDROcodone Yes [id number] 1{tbl} Take 1 [facility] -acetaminop 8-05 tablet by ity of hen 7.5-325 00:00: mouth [place] mg per 00 every 6 Medical tablet (six) Branch hours as needed (Pain scal 7-10). pantoprazol Yes [id number] 40mg Take 1 [facility] e 40 mg EC 8-05 tablet by ity of tablet 00:00: mouth 2 [place] 00 (two) Medical times Branch daily. proMETHazin Yes [id number] 25mg Take 1 [facility] e 25 mg 8-05 tablet by ity of tablet 00:00: mouth [place] 00 every 6 Medical (six) Branch hours as needed for N/V alternatin g with Ondansetro n. HYDROcodone Yes [id number] 1{tbl} Take 1 [facility] -acetaminop 8-05 tablet by ity of hen 7.5-325 00:00: mouth [place] mg per 00 every 6 Medical tablet (six) Branch hours as needed (Pain scal 7-10). pantoprazol 2020- No [id number] 40mg Take 1 [facility] e 40 mg EC 8-05 04-05 tablet by ity of tablet 00:00: 00:00 mouth 2 [place] 00 :00 (two) Medical times Branch daily. proMETHazin 2020- No [id number] 25mg Take 1 [facility] e 25 mg 8-05 04-05 tablet by ity of tablet 00:00: 00:00 mouth [place] 00 :00 every 6 Medical (six) Branch hours as needed for N/V alternatin g with Ondansetro n. pantoprazol 2020- No [id number] 40mg Take 1 [facility] e 40 mg EC 8-05 04-05 tablet by ity of tablet 00:00: 00:00 mouth 2 [place] 00 :00 (two) Medical times Branch daily. proMETHazin 2020- No [id number] 25mg Take 1 Univers e 25 mg [...] [place] mg 00 First dose Medical on [facility] 11/16/18 at 0900, Until Discontinu ed, Routine losartan 2019-0 Yes 100mg 100 mg, Unive rs (COZAAR) 11-16 Oral, ity of tablet 100 14:00: DAILY, [place] mg 00 First dose Medical on [facility] 11/16/18 at 0900, Until Discontinu ed lipase-prot 2019-0 Yes 3{capsu 3 capsule, Univers ease-amylas 11-16 le} Oral, TID ity of e (CREON) 13:00: MEALS, [place] 12,000-38,0 00 First dose Me dical 00 -60,000 on [facility] unit 11/16/18 at capsule 3 0800, capsule Until Discontinu ed FENTanyl PF 2018- 2019- No 25ug 25 mcg, Un you (SUBLIMAZE 11-16 Slow IV ity o f (PF)) 12:38: 19:23 Push, [place] injection 00 :28 Q6HPRN, Medical 25 mcg Starting Branch [place] 11/16/18 at 0738, Until [place] 11/16/18 at 1423, Routine, Pain (scale 7-10) baclofen 2018-0 Yes 10mg 10 mg, Univers (LIORESAL) 11-16 Oral, TID, ity of tablet 10 05:45: First dose [place] mg 00 on [facility] 11/16/18 at Branch 0045, Until Discontinu ed, Routine QUEtiapine 2019-0 Yes 100mg 100 mg, Uni vers (SEROQUEL) 11-16 Oral, QHS, ity of tablet 100 02:00: First dose [place] mg 00 on [facility] 11/15/18 at Branch 2100, Until Discontinu ed, Routine divalproex 2019-0 Yes 125mg 125 mg, Uni vers (DEPAKOTE) 8- Oral, QHS, ity of EC tablet 02:00: First dose [place] 125 mg 00 on [facility] 11/15/18 at Branch 2100, Until Discontinu ed, Routine proMETHazin 2018-0 2019- No 25mg 25 mg, Uni vers e 11-16 08- Oral, ity of (PHENERGAN) 01:15: 00:46 ONCE, 1 [place] tablet 25 00 :00 dose, Sat Medic al mg 11/15/18 at Branch 2015, Routine gabapentin 2018- Yes 300mg 300 mg, Uni vers (NEURONTIN) 11-16 Oral, BID, it y of capsule 300 01:00: First dose [place] mg 00 on Sat Medical 11/15/18 at Branch 2000, Until Discontinu ed, Routine lactated 2018- No 1000mL at 150 Univ ers ringers [...] at 0738, Routine, Pain (scale 7-10) ondansetron Yes 4mg 4 mg, Slow Univers (ZOFRAN 11-15 IV Push, ity of (PF)) 22:43: Q6HPRN, [place] injection 4 29 Starting Medi brandy mg 11/15/18 Branch at 1743, Until Discontinu ed, Routine, Nausea and Vomiting (N/V) acetaminoph Yes 650mg 650 mg, Un you en 11-15 Oral, ity of (TYLENOL) 22:41: Q6HPRN, [place] tablet 650 56 Starting Medic al mg 11/15/18 Branch at 1741, Until Discontinu ed, Routine, Pain (scale 1-3) FENTanyl PF 2019- No 100ug 100 mcg, Univers (SUBLIMAZE [...] 20 mL 1330, 20 syringe mL iohexol 2019- No 120mL 120 mL, Unive rs (OMNIPAQUE 8-03 08-03 Intravenou it y of 350 16:45: 16:25 s, ONCE, 1 [place] BULK-150 00 :00 dose, Sat Medica l mL) 11/15/18 at Branch injection 1145, 120 mL Routine FENTanyl PF 2019- No 100ug 100 mcg, Univers (SUBLIMAZE [...] Sat Medica l mg(2.5 mg 11/15/18 at [facility] h base[facility]3 mL 1130, [place] nebulizer solution [...] at Branch 1045, [place] traMADol 2019- No [id number] 50mg Take 1 Univers (ULTRAM) 50 10-31 [...] 3 ity o f 000- 00:00: (three) [place] 180,000 00 times Medical unit CpDR daily [...] 3 ity o f 000- 00:00: (three) [place] 180,000 00 times Medical unit CpDR daily [...] 3 ity o f 000- 00:00: (three) [place] 180,000 00 times Medical unit CpDR daily with Bran ch meals. CREON 2018-0 Yes Take by Univers 36,000-114, 7-11 mouth 3 ity o f 000- 00:00: (three) [place] 180,000 00 times Medical unit CpDR daily with Bran ch meals. CREON 2018-0 Yes Take by Univers 36,000-114, 7-11 mouth 3 ity o f 000- 00:00: (three) [place] 180,000 00 times Medical unit CpDR daily with Bran ch meals. CREON 2019-0 Yes Take by Univers 36,000-114, 7-11 mouth 3 ity o f 000- 00:00: (three) [place] 180,000 00 times Medical unit CpDR daily [...] 3 ity o f 000- 00:00: (three) [place] 180,000 00 times Medical unit CpDR daily [...] 3 ity o f 000- 00:00: (three) [place] 180,000 00 times Medical unit CpDR daily with Bran ch meals. CREON Yes Take by Univers 36,000-114, 7-11 mouth 3 ity o f 000- 00:00: (three) [place] 180,000 00 times Medical unit CpDR daily with Bran ch meals. CREON Yes Take by Univers 36,000-114, 7-11 mouth 3 ity o f 000- 00:00: (three) [place] 180,000 00 times Medical unit CpDR daily with Bran ch meals. CREON 2020- No Take by Univers 36,000-114, 7-11 04-05 mouth 3 ity of 000- 00:00: 00:00 (three) [place] 180,000 00 :00 times Medical unit CpDR daily with Bran ch meals. CREON 2020- No Take by Univers 36,000-114, 7-11 04-05 mouth 3 ity of 000- 00:00: 00:00 (three) [place] 180,000 00 :00 times Medical unit CpDR daily with Bran ch meals. dicyclomine 2018- 2019- No [id number] 20mg Take 1 Univers (BENTYL) 20 5-28 08-03 tablet by it y of mg tablet 00:00: 00[place] (four[place] times Branch daily as needed for Abdominal pain. ondansetron 2018- No [id number] 4mg Take 1 Univers (ZOFRAN) 4 09-09 08-03 tablet by ity of mg tablet 00:00: 00:00 mouth [place] 00 :00 every 8 Medical (eight) Branch hours as needed for Nausea and Vomiting (N/V). amLODIPine 2018- No [id number] 5mg Take 2 Univers 2.5 mg 07-21- tablets by ity of tablet 00:00: 00:00 mouth at [place] 00 :00 bedtime. Medical Branch proMETHazin 2018- No [id number] 25mg Take 1 Univers e 25 mg 07-21 tablet by ity of tablet 00:00: 00:00 [...] 2015-04- No 20meq Take 1 Univers (KLOR-CON 05-01- tablet by ity of M20) 20 mEq [...] 00 :00 (eight) Medical tablet hours. Branch Losartan Losartan Yes Na [place] 1 tablet [...] DAY l [facility] Immunizations Ordered Filled Immunization Date Status Comments [facility] e Immunization Name Name SARS-COV-2 COVID-19 2021-03-25 Completed Unive rsity of MODERNA BOOSTER 00:00:00 [facility] VACCINE Branch SARS-COV-2 COVID-19 2021-03-25 Completed Unive rsity of MODERNA BOOSTER 00:00:00 [facility] VACCINE Branch SARS-COV-2 COVID-19 2021-03-25 Completed Unive rsity of MODERNA BOOSTER 00:00:00 [facility] VACCINE Branch SARS-COV-2 COVID-19 2021-03-25 Completed Unive rsity of MODERNA BOOSTER 00:00:00 [facility] VACCINE Ramer SARS-COV-2 COVID-19 2021-03-25 Completed Unive rsity of MODERNA BOOSTER 00:00:00 [place] [facility] VACCINE Branch SARS-COV-2 COVID-19 2021-03-25 Completed Unive rsity of MODERNA BOOSTER 00:00:00 [place] [facility] ical VACCINE Branch SARS-COV-2 COVID-19 2021-03-25 Completed Unive rsity of MODERNA BOOSTER 00:00:00 [place] [facility] ical VACCINE Branch SARS-COV-2 COVID-19 2021-03-25 Completed Unive rsity of MODERNA BOOSTER 00:00:00 [place] [facility] ical VACCINE Branch SARS-COV-2 COVID-19 2021-03-25 Completed Unive rsity of MODERNA BOOSTER 00:00:00 [place] [facility] ical VACCINE Branch SARS-COV-2 COVID-19 2020-07-19 Completed Unive [...] Unive rsity of MODERNA VACCINE 00:00:00 [place] [facility] ical Branch SARS-COV-2 COVID-19 2020-05-22 Completed Unive [...] Completed Unive rsity of MODERNA VACCINE 00:00:00 [facility] Influenza Virus 2013-02-27 Completed Universit y of Vaccine 00:00:00 [facility] Influenza Virus 2013-02-27 Completed Universit y of Vaccine 00:00:00 [facility] Influenza Virus 2013-02-27 Completed Universit y of Vaccine 00:00:00 [facility] Influenza Virus 2013-02-27 Completed Universit y of Vaccine 00:00:00 [facility] Influenza Virus 2013-02-27 Completed Universit y of Vaccine 00:00:00 [facility] Influenza Virus 2013-02-27 Completed Universit y of Vaccine 00:00:00 [facility] Influenza Virus 2013-02-27 Completed Universit y of Vaccine 00:00:00 [facility] Influenza Virus 2013-02-27 Completed Universit y of Vaccine 00:00:00 [facility] Influenza Virus 2013-02-27 Completed Universit y of Vaccine 00:00:00 [facility] Influenza Virus 2013-02-27 Completed Universit y of Vaccine 00:00:00 [facility] Influenza Virus 2013-02-27 Completed Universit y of Vaccine 00:00:00 [facility] Influenza Virus 2013-02-27 Completed Universit y of Vaccine 00:00:00 [facility] Influenza Virus 2013-02-27 Completed Universit y of Vaccine 00:00:00 [facility] Influenza Virus 2013-02-27 Completed Universit y of Vaccine 00:00:00 [facility] Influenza Virus 2013-02-27 Completed Universit y of Vaccine 00:00:00 [facility] Influenza Virus 2013-02-27 Completed Universit y of Vaccine 00:00:00 [facility] Influenza Virus 2013-02-27 Completed Universit y of Vaccine 00:00:00 [facility] Influenza Virus 2013-02-27 Completed Universit y of Vaccine 00:00:00 [facility] Influenza Virus 2013-02-27 Completed Universit y of Vaccine 00:00:00 [facility] Influenza Virus 2013-02-27 Completed Universit y of Vaccine 00:00:00 [facility] Influenza Virus 2013-02-27 Completed Universit y of Vaccine 00:00:00 [facility] Influenza Virus 2013-02-27 Completed Universit y of Vaccine 00:00:00 [facility] Influenza Virus 2013-02-27 Completed Universit y of Vaccine 00:00:00 [facility] Influenza Virus 2013-02-27 Completed Universit y of Vaccine 00:00:00 [facility] Influenza Virus 2013-02-27 Completed Universit y of Vaccine 00:00:00 [facility] Influenza Virus 2013-02-27 Completed Universit y of Vaccine 00:00:00 [facility] Influenza Virus 2013-02-27 Completed Universit y of Vaccine 00:00:00 [facility] Influenza Virus 2013-02-27 Completed Universit y of Vaccine 00:00:00 [facility] Influenza Virus 2013-02-27 Completed Universit y of Vaccine 00:00:00 [facility] Influenza Virus 2013-02-27 Completed Universit y of Vaccine 00:00:00 [facility] Influenza Virus 2013-02-27 Completed Universit y of Vaccine 00:00:00 [facility] Influenza Virus 2013-02-27 Completed Universit y of Vaccine 00:00:00 [facility] Influenza Virus 2013-02-27 Completed Universit y of Vaccine 00:00:00 [facility] Influenza Virus 2013-02-27 Completed Universit y of Vaccine 00:00:00 [facility] Influenza Virus 2013-02-27 Completed Universit y of Vaccine 00:00:00 [facility] Influenza Virus 2013-02-27 Completed Universit y of Vaccine 00:00:00 [facility] Influenza Virus 2013-02-27 Completed Universit y of Vaccine 00:00:00 [facility] Influenza Virus 2013-02-27 Completed Universit y of Vaccine 00:00:00 [facility] Influenza Virus 2013-02-27 Completed Universit y of Vaccine 00:00:00 [facility] Influenza Virus 2013-02-27 Completed Universit y of Vaccine 00:00:00 [facility] Influenza Virus 2013-02-27 Completed Universit y of Vaccine 00:00:00 [facility] Influenza Virus 2013-02-27 Completed Universit y of Vaccine 00:00:00 [facility] Influenza Virus 2013-02-27 Completed Universit y of Vaccine 00:00:00 [facility] Influenza Virus 2013-02-27 Completed Universit y of Vaccine 00:00:00 [facility] Influenza Virus 2013-02-27 Completed Universit y of Vaccine 00:00:00 [facility] Influenza Virus 2013-02-27 Completed Universit y of Vaccine 00:00:00 [facility] Influenza Virus 2013-02-27 Completed Universit y of Vaccine 00:00:00 [facility] Influenza Virus 2013-02-27 Completed Universit y of Vaccine 00:00:00 [facility] Vital Signs Vital Name Observation Time Observation Value Comments Source WEIGHT 2020-09-05 85.548 kg 19:05:00 WEIGHT 2020-08-28 83.9 kg 04:41:00 WEIGHT 2020-08-27 84.959 kg 05:27:00 WEIGHT 2020-08-26 85.821 kg 02:50:00 HEIGHT 2020-08-26 152.4 cm 02:50:00 Systolic blood 2021-05-22 151 mm[Hg] University of pressure 07:00:00 [facility] Diastolic blood 2021-05-22 97 mm[Hg] University o f pressure 07:00:00 [facility] Heart rate 2021-05-22 93 /min University of 07:00:00 [facility] Oxygen saturation 2021-05-22 96 /min [facility] Arterial blood 07:00:00 [facility] by Pulse oximetry [place] Body temperature 2021-05-22 37.61 [place] University of 05:24:00 [facility] Respiratory rate 2021-05-22 20 /min University of 05:24:00 [facility] Body height 2021-05-22 152.4 cm University of 05:24:00 [facility] Body weight 2021-05-22 81.647 kg University of 05:24:00 [facility] BMI 2021-05-22 35.15 kg/m2 University of 05:24:00 [facility] Systolic blood 2021-05-18 139 mm[Hg] University of pressure 15:16:00 [facility] Diastolic blood 2021-05-18 86 mm[Hg] University o f pressure 15:16:00 [facility] Heart rate 2021-05-18 85 /min University of 15:16:00 [facility] Body temperature 2021-05-18 36.39 [place] University of 15:16:00 [facility] Respiratory rate 2021-05-18 18 /min University of 15:16:00 [facility] Body height 2021-05-18 152.4 cm University of 15:16:00 [facility] Body weight 2021-05-18 87.862 kg University of 15:16:00 [facility] BMI 2021-05-18 37.83 kg/m2 University of 15:16:00 [facility] Oxygen saturation 2021-05-18 97 /min University of in Arterial blood 15:16:00 [place] [facility] by Pulse oximetry Branch Systolic blood 2021-04-15 163 mm[Hg] University of pressure 19:38:00 [facility] Diastolic blood 2021-04-15 105 mm[Hg] University o f pressure 19:38:00 [facility] Heart rate 2021-04-15 98 /min University of 19:38:00 [facility] Body temperature 2021-04-15 37.06 [place] University of 19:38:00 [facility] Respiratory rate 2021-04-15 18 /min University of 19:38:00 [facility] Body height 2021-04-15 152.4 cm University of 19:38:00 [facility] Body weight 2021-04-15 81.647 kg University of 19:38:00 [facility] BMI 2021-04-15 35.15 kg/m2 University of 19:38:00 [facility] Oxygen saturation 2021-04-15 97 /min University of in Arterial blood 19:38:00 [facility] by Pulse oximetry Branch Systolic blood 2021-04-15 140 mm[Hg] University of pressure 19:20:00 [facility] Diastolic blood 2021-04-15 98 mm[Hg] University o f pressure 19:20:00 [facility] Heart rate 2021-04-15 109 /min University of 19:20:00 [facility] Body temperature 2021-04-15 36.94 [place] University of 19:20:00 [facility] Respiratory rate 2021-04-15 17 /min University of 19:20:00 [facility] Body weight 2021-04-15 84.596 kg University of 19:20:00 [facility] BMI 2021-04-15 36.42 kg/m2 University of 19:20:00 [facility] Oxygen saturation 2021-04-15 98 /min University of in Arterial blood 19:20:00 [place] [facility] by Pulse oximetry Branch Systolic blood 2021-03-26 138 mm[Hg] University of pressure 03:00:00 [facility] Diastolic blood 2021-03-26 89 mm[Hg] University o f pressure 03:00:00 [facility] Heart rate 2021-03-26 75 /min University of 03:00:00 [facility] Respiratory rate 2021-03-26 12 /min University of 03:00:00 [facility] Oxygen saturation 2021-03-26 99 /min University of in Arterial blood 03:00:00 [facility] by Pulse oximetry Branch Body temperature 2021-03-26 37 [place] University of 01:02:09 [facility] Body height 2021-03-26 152.4 cm University of 00:10:00 [facility] Body weight 2021-03-26 80.74 kg University of 00:10:00 [facility] BMI 2021-03-26 34.76 kg/m2 University of 00:10:00 [facility] Systolic blood 2021-03-21 173 mm[Hg] University of pressure 01:28:00 [facility] Diastolic blood 2021-03-21 104 mm[Hg] University o f pressure 01:28:00 [facility] Heart rate 2021-03-21 74 /min [facility] 01:28:00 [facility] Respiratory rate 2021-03-21 22 /min University 01:28:00 [facility] Oxygen saturation 2021-03-21 96 /min University of in Arterial blood 01:28:00 [facility] by Pulse oximetry Branch Body temperature 2021-03-20 37.17 [place] University of 21:59:00 [facility] Body weight 2021-03-20 81.647 kg University of 21:59:00 [facility] BMI 2021-03-20 35.15 kg/m2 University of 21:59:00 [facility] Systolic blood 2021-02-13 159 mm[Hg] University of pressure 02:02:00 [facility] Diastolic blood 2021-02-13 95 mm[Hg] University o f pressure 02:02:00 [facility] Body temperature 2021-02-13 36.67 [place] University of 02:02:00 [facility] Respiratory rate 2021-02-13 17 /min [place] of 02:02:00 [facility] Oxygen saturation 2021-02-13 93 /min University of in Arterial blood 02:02:00 [facility] by Pulse oximetry Branch Heart rate 2021-02-13 73 /min [facility] 01:00:00 [facility] Body height 2021-02-12 152.4 cm University of 19:07:00 [facility] Body weight 2021-02-12 86.183 kg University of 19:07:00 [facility] BMI 2021-02-12 37.11 kg/m2 University of 19:07:00 [facility] Systolic blood 2021-01-18 155 mm[Hg] University of pressure 05:45:00 [facility] Diastolic blood 2021-01-18 93 mm[Hg] University o f pressure 05:45:00 [facility] Heart rate 2021-01-18 86 /min University of 05:45:00 [facility] Respiratory rate 2021-01-18 14 /min University of 05:45:00 [facility] Oxygen saturation 2021-01-18 99 /min University of in Arterial blood 05:45:00 [place] [facility] by Pulse oximetry Branch Body temperature 2021-01-18 37.06 [place] University of 02:32:00 [facility] Body height 2021-01-18 152.4 cm University of 02:32:00 [facility] Body weight 2021-01-18 86.183 kg University of 02:32:00 [facility] BMI 2021-01-18 37.11 kg/m2 University of 02:32:00 [facility] Systolic blood 2021-01-07 117 mm[Hg] University of pressure 16:25:00 [facility] Diastolic blood 2021-01-07 79 mm[Hg] University o f pressure 16:25:00 [facility] Heart rate 2021-01-07 85 /min University of 16:25:00 [facility] Body temperature 2021-01-07 36.89 [place] University of 16:25:00 [facility] Respiratory rate 2021-01-07 16 /min University of 16:25:00 [facility] Body height 2021-01-07 152.4 cm University of 16:25:00 [facility] Body weight 2021-01-07 77.111 kg University of 16:25:00 [facility] BMI 2021-01-07 33.20 kg/m2 University of 16:25:00 [facility] Oxygen saturation 2021-01-07 96 /min University of in Arterial blood 16:25:00 [place] [facility] by Pulse oximetry Branch Systolic blood 2020-12-30 148 mm[Hg] University of pressure 22:35:00 [facility] Diastolic blood 2020-12-30 107 mm[Hg] University o f pressure 22:35:00 [facility] Heart rate 2020-12-30 78 /min University of 22:35:00 [facility] Respiratory rate 2020-12-30 18 /min University of 22:35:00 [facility] Oxygen saturation 2020-12-30 97 /min [facility] in Arterial blood 22:35:00 [facility] by Pulse oximetry Branch Body temperature 2020-12-30 37.44 [place] University of 18:12:00 [facility] Body height 2020-12-30 152.4 cm University of 18:12:00 [facility] Body weight 2020-12-30 77.111 kg University of 18:12:00 [facility] BMI 2020-12-30 33.20 kg/m2 University of 18:12:00 [facility] Systolic blood 2020-12-30 122 mm[Hg] University of pressure 15:13:00 [facility] Diastolic blood 2020-12-30 87 mm[Hg] University o f pressure 15:13:00 [facility] Heart rate 2020-12-30 83 /min University of 15:13:00 [facility] Body temperature 2020-12-30 36.83 [place] University of 15:13:00 [facility] Respiratory rate 2020-12-30 18 /min University of 15:13:00 [facility] Body height 2020-12-30 152.4 cm University of 15:13:00 [facility] Body weight 2020-12-30 83.553 kg University of 15:13:00 [facility] BMI 2020-12-30 35.97 kg/m2 University of 15:13:00 [facility] Systolic blood 2020-12-16 123 mm[Hg] University of pressure 15:21:00 [facility] Diastolic blood 2020-12-16 90 mm[Hg] University o f pressure 15:21:00 [facility] Heart rate 2020-12-16 81 /min University of 15:21:00 [facility] Body temperature 2020-12-16 36.83 [place] University of 15:21:00 [facility] Respiratory rate 2020-12-16 18 /min University of 15:21:00 [facility] Body height 2020-12-16 152.4 cm University of 15:21:00 [facility] Body weight 2020-12-16 83.915 kg University of 15:21:00 [facility] BMI 2020-12-16 36.13 kg/m2 University of 15:21:00 [facility] Systolic blood 2020-12-05 167 mm[Hg] University of pressure 22:45:00 [facility] Diastolic blood 2020-12-05 101 mm[Hg] University o f pressure 22:45:00 [facility] Heart rate 2020-12-05 76 /min University of 22:45:00 [facility] Respiratory rate 2020-12-05 20 /min University of 22:45:00 [facility] Oxygen saturation 2020-12-05 97 /min University of in Arterial blood 22:45:00 [facility] by Pulse oximetry Branch Body temperature 2020-12-05 37.11 [place] University of 19:05:00 [facility] Body weight 2020-12-05 77.111 kg University of 19:05:00 [facility] BMI 2020-12-05 33.20 kg/m2 University of 19:05:00 [facility] Systolic blood 2020-10-12 111 mm[Hg] University of pressure 20:04:00 [facility] Diastolic blood 2020-10-12 77 mm[Hg] University o f pressure 20:04:00 [facility] Heart rate 2020-10-12 74 /min University of 20:04:00 [facility] Body temperature 2020-10-12 36.06 [place] University of :04:00 [facility] Respiratory rate 2020-10-12 18 /min University of :04:00 [facility] Oxygen saturation 2020-10-12 97 /min University of in Arterial blood 20:04:00 [facility] by Pulse oximetry Branch Body height 2020-10-12 152.4 cm University of 02:36:00 [facility] Body weight 2020-10-12 84.46 kg University of 02:36:00 [facility] BMI 2020-10-12 36.36 kg/m2 University of 02:36:00 [facility] Systolic blood 2020-10-12 111 mm[Hg] University of pressure 20:04:00 [facility] Diastolic blood 2020-10-12 77 mm[Hg] University o f pressure 20:04:00 [facility] Heart rate 2020-10-12 74 /min University of 20:04:00 [facility] Body temperature 2020-10-12 36.06 [place] University of 20:04:00 [facility] Respiratory rate 2020-10-12 18 /min University of 20:04:00 [facility] Oxygen saturation 2020-10-12 97 /min University of in Arterial blood 20:04:00 [facility] by Pulse oximetry Branch Body height 2020-10-12 152.4 cm University of 02:36:00 [facility] Body weight 2020-10-12 84.46 kg University of 02:36:00 [facility] BMI 2020-10-12 36.36 kg/m2 University of 02:36:00 [facility] Systolic blood 2020-10-05 129 mm[Hg] University of pressure 01:00:00 [facility] Diastolic blood 2020-10-05 88 mm[Hg] University o f pressure 01:00:00 [facility] Heart rate 2020-10-05 72 /min University of 01:00:00 [facility] Respiratory rate 2020-10-05 18 /min University of 01:00:00 [facility] Oxygen saturation 2020-10-05 95 /min University of in Arterial blood 01:00:00 [facility] by Pulse oximetry Branch Body temperature 2020-10-04 37.72 [place] University of 22:44:00 [facility] Body weight 2020-10-04 77.111 kg University of 22:44:00 [facility] BMI 2020-10-04 33.20 kg/m2 University of 22:44:00 [facility] Systolic blood 2020-10-05 129 mm[Hg] University of pressure 01:00:00 [facility] Diastolic blood 2020-10-05 88 mm[Hg] University o f pressure 01:00:00 [facility] Heart rate 2020-10-05 72 /min University of 01:00:00 [facility] Respiratory rate 2020-10-05 18 /min University of 01:00:00 [facility] Oxygen saturation 2020-10-05 95 /min University of in Arterial blood 01:00:00 [facility] by Pulse oximetry Branch Body temperature 2020-10-04 37.72 [place] University of 22:44:00 [facility] Body weight 2020-10-04 77.111 kg University of 22:44:00 [facility] BMI 2020-10-04 33.20 kg/m2 University of 22:44:00 [facility] WEIGHT 2020-09-05 85.548 kg 19:05:00 WEIGHT 2020-08-28 83.9 kg 04:41:00 WEIGHT 2020-08-27 84.959 kg 05:27:00 WEIGHT 2020-08-26 85.821 kg 02:50:00 HEIGHT 2020-08-26 152.4 cm 02:50:00 Systolic blood 2020-08-05 157 mm[Hg] University of pressure 13:12:00 [facility] Diastolic blood 2020-08-05 128 mm[Hg] University o f pressure 13:12:00 [facility] Heart rate 2020-08-05 95 /min University of 13:12:00 [facility] Body temperature 2020-08-05 36.67 [place] University of 13:12:00 [facility] Respiratory rate 2020-08-05 18 /min University of 13:12:00 [facility] Body weight 2020-08-05 77.111 kg University of 13:12:00 [facility] BMI 2020-08-05 33.20 kg/m2 University of 13:12:00 [facility] Oxygen saturation 2020-08-05 98 /min University of in Arterial blood 13:12:00 [facility] by Pulse oximetry Branch Systolic blood 2020-08-05 157 mm[Hg] University of pressure 13:12:00 [facility] Diastolic blood 2020-08-05 128 mm[Hg] University o f pressure 13:12:00 [facility] Heart rate 2020-08-05 95 /min University of 13:12:00 [facility] Body temperature 2020-08-05 36.67 [place] University of 13:12:00 [facility] Respiratory rate 2020-08-05 18 /min University of 13:12:00 [facility] Body weight 2020-08-05 77.111 kg University of 13:12:00 [facility] BMI 2020-08-05 33.20 kg/m2 University of 13:12:00 [facility] Oxygen saturation 2020-08-05 98 /min [facility] of in Arterial blood 13:12:00 [place] [facility] by Pulse oximetry [facility] Systolic blood 2020-07-18 184 mm[Hg] University of pressure 13:22:00 [facility] Diastolic blood 2020-07-18 110 mm[Hg] University o f pressure 13:22:00 [facility] Heart rate 2020-07-18 71 /min University of 13:22:00 [place] [facility] Respiratory rate 2020-07-18 18 /min [facility] 13:22:00 [facility] Oxygen saturation 2020-07-18 100 /min [facility] in Arterial blood 13:22:00 [facility] Body temperature 2020-07-18 36.56 [place] [facility] 12:49:00 [facility] Body height 2020-07-14 152.4 cm [facility] 16:45:00 [facility] Body weight 2020-07-14 77.111 kg [facility] 16:45:00 [facility] BMI 2020-07-14 33.20 kg/m2 [facility] 16:45:00 [facility] Systolic blood 2020-07-18 184 mm[Hg] [facility] of pressure 13:22:00 [facility] Diastolic blood 2020-07-18 110 mm[Hg] [facility] o f pressure 13:22:00 [facility] Heart rate 2020-07-18 71 /min [facility] 13:22:00 [facility] Respiratory rate 2020-07-18 18 /min [facility] 13:22:00 [facility] Oxygen saturation 2020-07-18 100 /min [facility] in Arterial blood 13:22:00 [facility] Body temperature 2020-07-18 36.56 [place] [facility] 12:49:00 [facility] Body height 2020-07-14 152.4 cm [facility] 16:45:00 [facility] Body weight 2020-07-14 77.111 kg [facility] 16:45:00 [facility] BMI 2020-07-14 33.20 kg/m2 [facility] 16:45:00 [facility] Systolic blood 2020-07-18 180 mm[Hg] [facility] of pressure 12:59:00 [facility] Diastolic blood 2020-07-18 88 mm[Hg] [facility] o f pressure 12:59:00 [facility] Heart rate 2020-07-18 74 /min [facility] 12:59:00 [facility] Respiratory rate 2020-07-18 17 /min [facility] 12:59:00 [facility] Oxygen saturation 2020-07-18 100 /min [facility] in Arterial blood 12:59:00 [facility] Body temperature 2020-07-18 36.56 [place] [facility] 12:49:00 [facility] Body height 2020-07-14 152.4 cm [facility] 16:45:00 [facility] Body weight 2020-07-14 77.111 kg [facility] 16:45:00 [facility] BMI 2020-07-14 33.20 kg/m2 [facility] 16:45:00 [facility] Systolic blood 2020-07-18 180 mm[Hg] [facility] pressure 12:59:00 [facility] Diastolic blood 2020-07-18 88 mm[Hg] [facility] o f pressure 12:59:00 [facility] Heart rate 2020-07-18 74 /min [facility] 12:59:00 [facility] Respiratory rate 2020-07-18 17 /min [facility] 12:59:00 [facility] Oxygen saturation 2020-07-18 100 /min [facility] in Arterial blood 12:59:00 [facility] Body temperature 2020-07-18 36.56 [place] [facility] 12:49:00 [facility] Body height 2020-07-14 152.4 cm [facility] 16:45:00 [facility] Body weight 2020-07-14 77.111 kg [facility] 16:45:00 [facility] BMI 2020-07-14 33.20 kg/m2 [facility] 16:45:00 [facility] Systolic blood 2020-07-08 187 mm[Hg] [facility] pressure 02:00:00 [facility] Diastolic blood 2020-07-08 102 mm[Hg] [facility] o f pressure 02:00:00 [facility] Heart rate 2020-07-08 84 /min [facility] 02:00:00 [facility] Respiratory rate 2020-07-08 20 /min [facility] 02:00:00 [facility] Oxygen saturation 2020-07-08 100 /min [facility] in Arterial blood 02:00:00 [facility] Body temperature 2020-07-07 37.22 [place] [facility] 23:45:00 [facility] Body weight 2020-07-07 81.194 kg [facility] 23:45:00 [facility] BMI 2020-07-07 34.96 kg/m2 [facility] 23:45:00 [facility] Systolic blood 2020-07-08 187 mm[Hg] [facility] pressure 02:00:00 [facility] Diastolic blood 2020-07-08 102 mm[Hg] [facility] o f pressure 02:00:00 [facility] Heart rate 2020-07-08 84 /min [facility] 02:00:00 [facility] Respiratory rate 2020-07-08 20 /min [facility] 02:00:00 [facility] Oxygen saturation 2020-07-08 100 /min [facility] in Arterial blood 02:00:00 [facility] Body temperature 2020-07-07 37.22 [place] [facility] 23:45:00 [facility] Body weight 2020-07-07 81.194 kg [facility] 23:45:00 [facility] BMI 2020-07-07 34.96 kg/m2 [facility] 23:45:00 [facility] Systolic blood 2020-07-04 168 mm[Hg] [facility] pressure 13:34:00 [facility] Diastolic blood 2020-07-04 94 mm[Hg] [facility] o f pressure 13:34:00 [facility] Heart rate 2020-07-04 63 /min [facility] 13:34:00 [facility] Oxygen saturation 2020-07-04 100 /min [facility] in Arterial blood 13:34:00 [facility] Respiratory rate 2020-07-04 12 /min [facility] 13:23:00 [facility] Body temperature 2020-07-04 36.72 [place] [facility] 13:03:00 [facility] Body height 2020-07-01 152.4 cm [facility] 17:45:00 [facility] Body weight 2020-07-01 81.647 kg [facility] 17:45:00 [facility] BMI 2020-07-01 35.15 kg/m2 [facility] 17:45:00 [facility] Systolic blood 2020-07-04 168 mm[Hg] [facility] pressure 13:34:00 [facility] Diastolic blood 2020-07-04 94 mm[Hg] [facility] o f pressure 13:34:00 [facility] Heart rate 2020-07-04 63 /min [facility] 13:34:00 [facility] Oxygen saturation 2020-07-04 100 /min [facility] in Arterial blood 13:34:00 [facility] Respiratory rate 2020-07-04 12 /min [facility] 13:23:00 [facility] Body temperature 2020-07-04 36.72 [place] [facility] 13:03:00 [facility] Body height 2020-07-01 152.4 cm [facility] 17:45:00 [facility] Body weight 2020-07-01 81.647 kg [facility] 17:45:00 [facility] BMI 2020-07-01 35.15 kg/m2 [facility] 17:45:00 [facility] Systolic blood 2020-06-20 148 mm[Hg] [facility] pressure 14:33:00 [facility] Diastolic blood 2020-06-20 86 mm[Hg] [facility] o f pressure 14:33:00 [facility] Heart rate 2020-06-20 70 /min [facility] 14:33:00 [facility] Respiratory rate 2020-06-20 11 /min [facility] 14:33:00 [facility] Oxygen saturation 2020-06-20 98 /min [facility] in Arterial blood 14:33:00 [facility] Body temperature 2020-06-20 36.33 [place] [facility] 14:18:00 [facility] Body height 2020-06-20 152.4 cm [facility] 12:30:00 [facility] Body weight 2020-06-20 81.647 kg [facility] 12:30:00 [facility] BMI 2020-06-20 35.15 kg/m2 [facility] 12:30:00 [facility] Systolic blood 2020-06-20 148 mm[Hg] [facility] pressure 14:33:00 [facility] Diastolic blood 2020-06-20 86 mm[Hg] [facility] o f pressure 14:33:00 [facility] Heart rate 2020-06-20 70 /min [facility] 14:33:00 [facility] Respiratory rate 2020-06-20 11 /min [facility] 14:33:00 [facility] Oxygen saturation 2020-06-20 98 /min [facility] in Arterial blood 14:33:00 [facility] Body temperature 2020-06-20 36.33 [place] [facility] 14:18:00 [facility] Body height 2020-06-20 152.4 cm [facility] 12:30:00 [facility] Body weight 2020-06-20 81.647 kg [facility] 12:30:00 [facility] BMI 2020-06-20 35.15 kg/m2 [facility] 12:30:00 [facility] Respiratory rate 2020-06-20 17 /min [facility] 14:12:00 [facility] Respiratory rate 2020-06-20 17 /min [facility] 14:12:00 [facility] Systolic blood 2020-05-07 122 mm[Hg] [facility] pressure 00:05:00 [facility] Diastolic blood 2020-05-07 77 mm[Hg] [facility] o f pressure 00:05:00 [facility] Heart rate 2020-05-07 61 /min [facility] 00:05:00 [facility] Respiratory rate 2020-05-07 17 /min [facility] 00:05:00 [facility] Oxygen saturation 2020-05-07 100 /min [facility] in Arterial blood 00:05:00 [facility] Body temperature 2020-05-06 37.06 [place] [facility] 21:17:00 [facility] Body height 2020-05-06 152.4 cm [facility] 21:17:00 [facility] Body weight 2020-05-06 77.111 kg [facility] 21:17:00 [facility] BMI 2020-05-06 33.20 kg/m2 [facility] 21:17:00 [facility] Systolic blood 2020-05-07 122 mm[Hg] [facility] pressure 00:05:00 [facility] Diastolic blood 2020-05-07 77 mm[Hg] [facility] o f pressure 00:05:00 [facility] Heart rate 2020-05-07 61 /min [facility] 00:05:00 [facility] Respiratory rate 2020-05-07 17 /min [facility] 00:05:00 [facility] Oxygen saturation 2020-05-07 100 /min [facility] in Arterial blood 00:05:00 [facility] Body temperature 2020-05-06 37.06 [place] [facility] 21:17:00 [facility] Body height 2020-05-06 152.4 cm [facility] 21:17:00 [facility] Body weight 2020-05-06 77.111 kg [facility] 21:17:00 [facility] BMI 2020-05-06 33.20 kg/m2 [facility] 21:17:00 [facility] Systolic blood 2020-03-26 170 mm[Hg] [facility] pressure 07:00:00 [facility] Diastolic blood 2020-03-26 110 mm[Hg] [facility] o f pressure 07:00:00 [facility] Heart rate 2020-03-26 77 /min [facility] 07:00:00 [facility] Respiratory rate 2020-03-26 18 /min [facility] 07:00:00 [facility] Oxygen saturation 2020-03-26 96 /min [facility] in Arterial blood 07:00:00 [facility] Body temperature 2020-03-26 37.67 [place] [facility] 03:07:00 [facility] Body height 2020-03-26 152.4 cm [facility] 03:07:00 [facility] Body weight 2020-03-26 77.111 kg [facility] 03:07:00 [facility] BMI 2020-03-26 33.20 kg/m2 [facility] 03:07:00 [facility] Systolic blood 2020-03-26 170 mm[Hg] [facility] pressure 07:00:00 [facility] Diastolic blood 2020-03-26 110 mm[Hg] [facility] o f pressure 07:00:00 [facility] Heart rate 2020-03-26 77 /min [facility] 07:00:00 [facility] Respiratory rate 2020-03-26 18 /min [facility] 07:00:00 [facility] Oxygen saturation 2020-03-26 96 /min [facility] in Arterial blood 07:00:00 [facility] Body temperature 2020-03-26 37.67 [place] [facility] 03:07:00 [facility] Body height 2020-03-26 152.4 cm [facility] 03:07:00 [facility] Body weight 2020-03-26 77.111 kg [facility] 03:07:00 [facility] BMI 2020-03-26 33.20 kg/m2 [facility] 03:07:00 [facility] Systolic blood 2020-02-08 134 mm[Hg] [facility] pressure 20:21:00 [facility] Diastolic blood 2020-02-08 94 mm[Hg] [facility] o f pressure 20:21:00 [facility] Heart rate 2020-02-08 76 /min [facility] 20:21:00 [facility] Body temperature 2020-02-08 36.11 [place] [facility] 20:21:00 [facility] Respiratory rate 2020-02-08 17 /min [facility] 20:21:00 [facility] Oxygen saturation 2020-02-08 100 /min [facility] in Arterial blood 20:21:00 [facility] Body weight 2020-02-03 80.468 kg [facility] 08:16: [facility] BMI 2020-02-03 34.65 kg/m2 [facility] 08:16:00 [facility] Systolic blood 2020-02-08 134 mm[Hg] [facility] pressure 20:21:00 [facility] Diastolic blood 2020-02-08 94 mm[Hg] [facility] f pressure 20:21:00 [facility] Heart rate 2020-02-08 76 /min [facility] 20:: [facility] Body temperature 2020-02-08 36.11 [place] [facility] 20:: [facility] Respiratory rate 2020-02-08 17 /min [facility] 20::00 [facility] Oxygen saturation 2020-02-08 100 /min [facility] in Arterial blood 20::00 [facility] by P[facility] o[facility] Body weight 2020-02-03 80.468 kg [facility] of 08:16: [facility] BMI 2020-02-03 34.65 kg/m2 [facility] 08:16:00 [facility] Systolic blood 2019-12-18 113 mm[Hg] [facility] pressure 23:30:00 [facility] Diastolic blood 2019-12-18 76 mm[Hg] [facility] f pressure 23:30:00 [facility] Heart rate 2019-12-18 57 /min [facility] 23:30:00 [facility] Respiratory rate 2019-12-18 18 /min [facility] 23:30:00 [facility] Oxygen saturation 2019-12-18 99 /min [facility] in Arterial blood 23:30:00 [facility] by [facility] Body temperature 2019-12-18 36.67 [place] [facility] 20:24:00 [facility] Body height 2019-12-18 152.4 cm [facility] 20:24: [facility] Body weight 2019-12-18 77.111 kg [facility] 20:24:00 [facility] BMI 2019-12-18 33.20 kg/m2 [facility] 20:24:00 [facility] Systolic blood 2019-12-18 113 mm[Hg] [facility] pressure 23:30:00 [facility] Diastolic blood 2019-12-18 76 mm[Hg] [facility] f pressure 23:30:00 [facility] Heart rate 2019-12-18 57 /min [facility] 23:30:00 [facility] Respiratory rate 2019-12-18 18 /min [facility] 23:30:00 [facility] Oxygen saturation 2019-12-18 99 /min [facility] in Arterial blood 23:30:00 [facility] by Pulse oximetry [place] Body temperature 2019-12-18 36.67 [place] [facility] 20:24:00 [facility] Body height 2019-12-18 152.4 cm University [facility] 20:24: [facility] Body weight 2019-12-18 77.111 kg [facility] 20:24:00 [facility] BMI 2019-12-18 33.20 kg/m2 [facility] 20:24:00 [facility] Systolic blood 2019-08-22 159 mm[Hg] [facility] pressure 04:28:00 [facility] Diastolic blood 2019-08-22 99 mm[Hg] [facility] f pressure 04:28:00 [facility] Heart rate 2019-08-22 66 /min [facility] 04:28:00 [facility] Respiratory rate 2019-08-22 18 /min [facility] 04:28:00 [facility] Oxygen saturation 2019-08-22 95 /min [facility] in Arterial blood 04:28:00 [facility] by Pulse oximetry [place] Body temperature 2019-08-22 36.61 [place] [facility] 00:48:43 [facility] Body height 2019-08-22 152.4 cm [facility] 00:44:00 [facility] Body weight 2019-08-22 86.183 kg [facility] 00:44:00 [facility] BMI 2019-08-22 37.11 kg/m2 [facility] 00:44:00 [facility] Systolic blood 2019-08-22 159 mm[Hg] [facility] pressure 04:28:00 [facility] Diastolic blood 2019-08-22 99 mm[Hg] [facility] o f pressure 04:28:00 [facility] Heart rate 2019-08-22 66 /min [facility] 04:28:00 [facility] Respiratory rate 2019-08-22 18 /min [facility] 04:28:00 [facility] Oxygen saturation 2019-08-22 95 /min [facility] in Arterial blood 04:28:00 [facility] by Pulse oximetry [place] Body temperature 2019-08-22 36.61 [place] [facility] 00:48:43 [facility] Body height 2019-08-22 152.4 cm [facility] 00:44:00 [facility] Body weight 2019-08-22 86.183 kg [facility] 00:44:00 [facility] BMI 2019-08-22 37.11 kg/m2 [facility] 00:44:00 [facility] Heart rate 2019-06-26 93 /min [facility] 00:53:00 [facility] Oxygen saturation 2019-06-26 94 /min [facility] in Arterial blood 00:53:00 [facility] Systolic blood 2019-06-26 149 mm[Hg] [facility] pressure 00:45:00 [facility] Diastolic blood 2019-06-26 106 mm[Hg] [facility] o f pressure 00:45:00 [facility] Respiratory rate 2019-06-26 16 /min [facility] of 00:45:00 [facility] Body temperature 2019-06-25 37.17 [place] [facility] 20:48:00 [facility] Body height 2019-06-25 152.4 cm [facility] 20:48:00 [facility] Body weight 2019-06-25 88.451 kg University of 20:48:00 [facility] BMI 2019-06-25 38.08 kg/m2 University of 20:48:00 [facility] Heart rate 2019-06-26 93 /min [facility] 00:53:00 [facility] Oxygen saturation 2019-06-26 94 /min [facility] in Arterial blood 00:53:00 [facility] o[facility] Systolic blood 2019-06-26 149 mm[Hg] [facility] pressure 00:45:00 [facility] Diastolic blood 2019-06-26 106 mm[Hg] [facility] o f pressure 00:45:00 [facility] Respiratory rate 2019-06-26 16 /min [facility] 00:45:00 [facility] Body temperature 2019-06-25 37.17 [place] [facility] 20:48:00 [facility] Body height 2019-06-25 152.4 cm [facility] of 20:48:00 [facility] Body weight 2019-06-25 88.451 kg [facility] of 20:48:00 [facility] BMI 2019-06-25 38.08 kg/m2 [facility] of 20:48:00 [facility] Systolic blood 2019-06-20 157 mm[Hg] [facility] pressure 00:30:00 [facility] Diastolic blood 2019-06-20 89 mm[Hg] [facility] o f pressure 00:30:00 [facility] Heart rate 2019-06-20 70 /min [facility] 00:30:00 [facility] Oxygen saturation 2019-06-20 97 /min [facility] in Arterial blood 00:30:00 [facility] by [facility] o[facility] Respiratory rate 2019-06-20 14 /min [facility] 00:04:00 [facility] Body height 2019-06-19 152.4 cm [facility] of 19:46:00 [facility] Body weight 2019-06-19 88.451 kg [facility] of 19:46:00 [facility] BMI 2019-06-19 38.08 kg/m2 [facility] of 19:46:00 [facility] Body temperature 2019-06-19 37.06 [place] [facility] 19:45:00 [facility] Systolic blood 2019-06-20 157 mm[Hg] [facility] pressure 00:30:00 [facility] Diastolic blood 2019-06-20 89 mm[Hg] [facility] o f pressure 00:30:00 [facility] Heart rate 2019-06-20 70 /min [facility] of 00:30:00 [facility] Oxygen saturation 2019-06-20 97 /min [facility] in Arterial blood 00:30:00 [facility] by [facility] Respiratory rate 2019-06-20 14 /min [facility] of 00:04:00 [facility] Body height 2019-06-19 152.4 cm University of :46:00 [facility] Body weight 2019-06-19 88.451 kg University of :46:00 [facility] BMI 2019-06-19 38.08 kg/m2 University of 19:46:00 [facility] Body temperature 2019-06-19 37.06 [place] [facility] 19:45:00 [facility] Systolic blood 2019-05-20 141 mm[Hg] [facility] pressure 02:59:00 [facility] Diastolic blood 2019-05-20 97 mm[Hg] [facility] o f pressure 02:59:00 [facility] Heart rate 2019-05-20 86 /min [facility] of 02:59:00 [facility] Respiratory rate 2019-05-20 16 /min [facility] of 02:59:00 [facility] Oxygen saturation 2019-05-20 94 /min [facility] in Arterial blood 02:59:00 [facility] Body temperature 2019-05-20 36.61 [place] [facility] 00:45:32 [facility] Body weight 2019-05-20 81.647 kg [facility] of 00:16:00 [facility] BMI 2019-05-20 35.15 kg/m2 [facility] of 00:16:00 [facility] Systolic blood 2019-05-20 141 mm[Hg] [facility] pressure 02:59:00 [facility] Diastolic blood 2019-05-20 97 mm[Hg] [facility] o f pressure 02:59:00 [facility] Heart rate 2019-05-20 86 /min [facility] of 02:59:00 [facility] Respiratory rate 2019-05-20 16 /min [facility] of 02:59:00 [facility] Oxygen saturation 2019-05-20 94 /min [facility] in Arterial blood 02:59:00 [facility] by Pulse oximetry [place] Body temperature 2019-05-20 36.61 [place] [facility] 00:45:32 [facility] Body weight 2019-05-20 81.647 kg [place] of 00:16:00 [facility] BMI 2019-05-20 35.15 kg/m2 University of 00:16:00 [facility] Systolic blood 2018-12-18 134 mm[Hg] [facility] of pressure 13:38:00 [facility] Diastolic blood 2018-12-18 96 mm[Hg] [facility] o f pressure 13:38:00 [facility] Heart rate 2018-12-18 75 /min [facility] of 13:38:00 [facility] Respiratory rate 2018-12-18 18 /min [facility] of 13:38:00 [facility] Body height 2018-12-18 152.4 cm [facility] 13:38:00 [facility] Body weight 2018-12-18 88.451 kg University of 13:38:00 [facility] BMI 2018-12-18 38.08 kg/m2 [facility] of 13:38:00 [facility] Systolic blood 2018-12-08 159 mm[Hg] [facility] of pressure 20:03:00 [facility] Diastolic blood 2018-12-08 111 mm[Hg] [facility] o f pressure 20:03:00 [facility] Body height 2018-12-08 152.4 cm [facility] 20:03:00 [facility] Body weight 2018-12-08 88.451 kg [facility] of 20:03:00 [facility] BMI 2018-12-08 38.08 kg/m2 [facility] of 20:03:00 [facility] Systolic blood 2018-12-05 180 mm[Hg] [facility] of pressure 13:04:00 [facility] Diastolic blood 2018-12-05 110 mm[Hg] [facility] o f pressure 13:04:00 [facility] Heart rate 2018-12-05 74 /min [facility] of 13:04:00 [facility] Respiratory rate 2018-12-05 18 /min [facility] of 12:57:00 [facility] Body height 2018-12-05 152.4 cm University of 12:57:00 [facility] Body weight 2018-12-05 88.451 kg University of 12:57:00 [facility] BMI 2018-12-05 38.08 kg/m2 [facility] of 12:57:00 [facility] Systolic blood 2018-12-01 139 mm[Hg] [facility] of pressure 23:03:00 [facility] Diastolic blood 2018-12-01 72 mm[Hg] [facility] o f pressure 23:03:00 [facility] Heart rate 2018-12-01 64 /min [facility] of 23:03:00 [facility] Respiratory rate 2018-12-01 13 /min [facility] 22:02:00 [facility] [facility] Body temperature 2018-12-01 36.33 [place] [facility] 19:27:00 [facility] Body height 2018-12-01 152.4 cm [facility] 19:27:00 [facility] Body weight 2018-12-01 88.451 kg [facility] 19:27:00 [facility] BMI 2018-12-01 38.08 kg/m2 [facility] 19:27:00 [facility] Oxygen saturation 2018-12-01 88 /min University of in Arterial blood 19:27:00 [facility] by Pulse oximetry Ramer Systolic blood 2018-11-17 145 mm[Hg] reported to RN University of pressure 17:00:00 [facility] Diastolic blood 2018-11-17 80 mm[Hg] reported to RN University of pressure 17:00:00 [facility] Heart rate 2018-11-17 54 /min [facility] 17:00:00 [facility] Body temperature 2018-11-17 36.72 [place] [facility] 17:00:00 [facility] Respiratory rate 2018-11-17 16 /min [facility] 17:00:00 [facility] Oxygen saturation 2018-11-17 95 /min [place] of in Arterial blood 17:00:00 [facility] by Pulse oximetry Branch Body height 2018-11-15 152.4 cm University of 22:07:00 [facility] Body weight 2018-11-15 88.587 kg University of 21:18:00 [facility] BMI 2018-11-15 38.14 kg/m2 [facility] 21:18:00 [facility] Procedures Procedure Date / Time Performing Clinician Source Performed EKG-12 LEAD 2021-05-22 06:47:40 Consuelo Avendaño [facility] CT CHEST PULMONARY 2021-05-22 06:08:50 Consuelo Avendaño [facility] ANGIOGRAM Medical Branch TROPONIN I 2021-05-22 05:41:00 [facility]OLIC PANEL 2021-05-22 05:41:00 Consuelo Avendaño [facility] ([id number]) Medical Branch CBC WITH DIFF 2021-05-22 05:41:00 Jarocho [facility] N-TERMINAL PRO-BNP 2021-05-22 05:41:00 Consuelo Avendaño [facility] NOTICE OF PRIVACY 2021-05-22 05:17:11 Doctor Unassigned, No [facility] PRACTICES Name Medical Branch CONSENT/REFUSAL FOR 2021-05-22 05:13:31 Doctor Unassigned, No [facility] DIAGNOSIS AND TREATMENT Name [facility] POCT MOLECULAR FLU 2021-05-18 15:26:00 [facility] POCT MOLECULAR STREP 2021-05-18 15:22:00 Manoj [facility] COVID-19 (ID NOW RAPID 2021-04-15 20:37:00 Consuelo Avendaño [facility] TESTING) Medical Branch CT ABDOMEN PELVIS W 2021-04-15 20:23:27 Consuelo Avendaño [facility] CONTRAST Medical Branch LIPASE 2021-04-15 20:23:00 Consuelo Avendaño [facility] TROPONIN I 2021-04-15 20:23:00 Consuelo Avendaño [facility] COMP. METABOLIC PANEL 2021-04-15 20:23:00 Consuelo Avendaño [facility] ([id number]) Medical Branch CBC WITH DIFF 2021-04-15 20:23:00 [facility] URINALYSIS 2021-04-15 20:23:00 Ebrahim, [facility] CONSENT/REFUSAL FOR 2021-04-15 19:33:08 Doctor Unassigned, No [facility] [place] DIAGNOSIS AND TREATMENT Name Medical Ramer CT ABDOMEN PELVIS W 2021-03-26 02:08:33 Consuelo Avendaño [facility] CONTRAST Medical Branch LIPASE 2021-03-26 00:57:00 Jarocho [facility] TROPONIN I 2021-03-26 00:57:00 Jarocho [facility] COMP. METABOLIC PANEL 2021-03-26 00:57:00 Jarocho [facility] ([id number]) [facility] CBC WITH DIFF 2021-03-26 00:57:00 Jarocho [facility] URINALYSIS 2021-03-26 00:57:00 Jarocho [facility] N-TERMINAL PRO-BNP 2021-03-26 00:57:00 Consuelo Avendaño [facility] XR CHEST 1 VW 2021-03-26 00:17:07 Jarocho [facility] CONSENT/REFUSAL FOR 2021-03-25 23:45:22 Doctor Unassigned, No [facility] [place] DIAGNOSIS AND TREATMENT [facility] SARS-COV-2 COVID-19 2021-03-25 17:05:57 Doctor Unassigned, No [facility] [place] VACCINE BOOSTER,0.25ML,IM Name Medica l Branch (MODERNA) COMP. METABOLIC PANEL 2021-03-20 23:40:00 Meka Hammonds [facility] ([id number]) Medical Branch CT ABDOMEN PELVIS W 2021-03-20 23:00:43 Meka Hammonds [facility] CONTRAST [facility] LIPASE 2021-03-20 22:41:00 Meka Hammonds [facility] TROPONIN I 2021-03-20 22:41:00 Meka Hammonds [facility] CBC WITH DIFF 2021-03-20 22:41:00 Meka Hammonds [facility] NOTICE OF PRIVACY 2021-03-20 21:43:47 Doctor Unassigned, No Univ [facility] PRACTICES Name Medical Branch CONSENT/REFUSAL FOR 2021-03-20 21:43:12 Doctor Unassigned, No [facility] [place] DIAGNOSIS AND TREATMENT Name Medical Branch CT ABDOMEN PELVIS W 2021-02-12 22:22:23 Rosalinda Fisher [facility] Branch LIPASE 2021-02-12 19:54:00 Rosalinda Fisher [facility] COMP. METABOLIC PANEL 2021-02-12 19:54:00 Natalia [facility] ([id number]) Medical Branch CBC WITH DIFF 2021-02-12 19:54:00 Natalia [facility] URINALYSIS 2021-02-12 19:54:00 Natalia [facility] CONSENT/REFUSAL FOR 2021-02-12 19:03:31 Doctor Unassigned, No [facility] [place] DIAGNOSIS AND TREATMENT Name Medical Branch COMP. METABOLIC PANEL 2021-01-18 04:11:00 Maru Baez [id number] Medical Branch CT ABDOMEN PELVIS W 2021-01-18 03:35:25 Maru Baez [facility] CONTRAST Medical Branch LIPASE 2021-01-18 02:54:00 Maru Baez [facility] Medical Ramer CBC WITH DIFF 2021-01-18 02:54:00 Maru Baez [facility] URINALYSIS 2021-01-18 02:54:00 Maru Baez [facility] Branch CONSENT/REFUSAL FOR 2021-01-18 02:23:56 Doctor Unassigned, No [facility] [place] DIAGNOSIS AND TREATMENT Name Medical Branch XR CHEST 2 VW 2021-01-07 16:49:00 [facility] o f [facility] Branch COVID-19 (ID NOW RAPID 2020-12-30 22:02:00 Maru Baez [facility] [place] TESTING) Medical Branch CT ABDOMEN PELVIS W 2020-12-30 18:49:58 Maru Baez [facility] [place] CONTRAST Medical Branch LIPASE 2020-12-30 18:29:00 Maru Baez [facility] HEPATIC FUNCTION PANEL 2020-12-30 18:29:00 [facility] ([id number] (ALB,T.PRO,BILI Medical Branch T,BU/BC,ALT,AST,ALK PHOS) BASIC METABOLIC PANEL 2020-12-30 18:29:00 Maru Baez [facility] (NA, K, CL, CO2, GLUCOSE, Medica l Branch BUN, CREATININE, CA) CBC WITH DIFF 2020-12-30 18:29:00 Maru Baez [facility] URINALYSIS 2020-12-30 18:29:00 Maru Baez [facility] CONSENT/REFUSAL FOR 2020-12-30 18:01:18 Doctor Unassigned, No [facility] DIAGNOSIS AND TREATMENT [facility] US PELVIS COMPLETE WITH 2020-12-23 21:36:03 Vira Washburn [facility] TRANSVAGINAL [facility] US GALL BLADDER 2020-12-05 22:39:34 Alirio Poole [facility] LACTIC ACID WHOLE BLOOD 2020-12-05 22:16:00 Alirio Poole [facility] CT ABDOMEN PELVIS W 2020-12-05 21:23:47 Alirio Poole [facility] CONTRAST [facility] ASSIGNMENT OF BENEFITS 2020-12-05 20:53:22 Doctor Unassigned, No [facility] Branch LIPASE 2020-12-05 20:12:00 Maru Baez [facility] COMP. METABOLIC PANEL 2020-12-05 20:12:00 Maru Baez [facility] ([id number]) [facility] CBC WITH DIFF 2020-12-05 20:12:00 Maru Baez [facility] URINALYSIS 2020-12-05 20:12:00 Maru Baez [facility] CONSENT/REFUSAL FOR 2020-12-05 18:56:42 Doctor Unassigned, [facility]ATMENT Name Medical Branch MAGNESIUM 2020-10-12 08:21:00 Jose Luis Chandler [facility] HEPATIC FUNCTION PANEL 2020-10-12 08:21:00 [facility] ([id number]) (ALB,T.PRO,BILI Medical Branch T,BU/BC,ALT,AST,ALK PHOS) LIPID PANEL ([id number])(TOTAL 2020-10-12 08:21:00 Lissette Becerra [facility] CHOLESTEROL, [facility] TRIGLYCERIDES, HDL) CBC WITH DIFF 2020-10-12 08:21:00 [facility] / INR 2020-10-12 08:21:[address] [facility] ACTIVATED PARTIAL 2020-10-12 08:21:00 [facility] HEPATIC FUNCTION PANEL 2020-10-12 03:31:00 [facility] ([id number]) (ALB,T.PRO,[facility] T,BU/BC,ALT,AST,ALK PHOS) BASIC METABOLIC PANEL 2020-10-12 03:31:00 [facility] (NA, K, CL, CO2, GLUCOSE, Medica l Branch BUN, CREATININE, CA) COVID-19 (ID NOW RAPID 2020-10-11 16:15:00 Farshad Ramirez [facility] TESTING) Medical Branch US GALL BLADDER 2020-10-11 15:26:59 Farshad Ramirez [facility] HB ECG ROUTINE & RHYTHM 2020-10-11 13:53:00 Farshad Ramirez [facility] STRIP Medical Branch LIPASE 2020-10-11 13:49:00 Farshad Ramirez [facility] TROPONIN I 2020-10-11 13:49:00 James Farshad [facility] HEPATIC FUNCTION PANEL 2020-10-11 13:49:00 Farshad Ramirez [facility] ([id number]) (ALB,T.PRO,BILI Medical Branch T,BU/BC,ALT,AST,ALK PHOS) BASIC METABOLIC PANEL 2020-10-11 13:49:00 Farshad Ramirez [facility] (NA, K, CL, CO2, GLUCOSE, Medica l Branch BUN, CREATININE, CA) CBC WITH DIFF 2020-10-11 13:49:00 [facility] URINALYSIS 2020-10-11 13:49:00 [facility] CONSENT/REFUSAL FOR 2020-10-11 13:29:15 Doctor Unassigned, No [facility] Name Medical Branch COVID-19 (ID NOW RAPID 2020-10-04 23:19:00 Maisha Valera [facility] TESTING) Medical Branch URINALYSIS 2020-10-04 23:18:00 Maisha Valera [facility] LIPASE 2020-10-04 23:17:00 Valera, Maisha R [facility] COMP. METABOLIC PANEL 2020-10-04 23:17:00 Maisha Valera [facility] ([id number]) Medical Branch CBC WITH DIFF 2020-10-04 23:17:00 ValeraMaisha oleary [facility] CONSENT/REFUSAL FOR 2020-08-05 13:05:44 Doctor Unassigned, No [facility] DI[facility]NOSIS [facility] TREAT[facility] Name Medical Branch FL TIME OR 2020-07-18 12:50:00 [facility] (NON-REPORTABLE) Medical Branch FL TIME OR 2020-07-18 12:50:00 [facility] (NON-REPORTABLE) Medical Branch BLOCK EPIDURAL 2020-07-18 12:25:00 Moise Gamez [facility] POCT GLUCOSE (AUTOMATED) 2020-07-18 12:01:00 Moise Gamez [facility] POCT GLUCOSE (AUTOMATED) 2020-07-18 12:01:00 Moise Gamez [facility] DAY SURGERY - ADC 2020-07-18 05:01:00 Doctor Unassigned, No [facility] Name Medical Branch CT ABDOMEN PELVIS W 2020-07-08 00:59:19 Jaki Polanco [facility] CONTRAST Medical Branch LIPASE 2020-07-08 00:23:00 Jaki Polanco [facility] Branch MAGNESIUM 2020-07-08 00:23:00 Jaki Polanco [facility] TROPONIN I 2020-07-08 00:23:00 Jaki Polanco Sydnie [facility] COMP. METABOLIC PANEL 2020-07-08 00:23:00 Jaki Polanco [facility] ([id number]) Medical Branch CBC WITH DIFF 2020-07-08 00:23:00 Jaki Polanco Sydnie [facility] URINALYSIS 2020-07-08 00:23:00 Jaki Polanco Sydnie [facility] COVID-19 (ID NOW RAPID 2020-07-08 00:23:00 Jaki Polanco [facility] TESTING) Medical Branch XR CHEST 1 VW 2020-07-08 00:01:58 Jaki Polanco [facility] CONSENT/REFUSAL FOR 2020-07-07 23:40:12 Doctor Unassigned, No [facility] [place] DIAGNOSIS AND TREATMENT Name Medical Branch FL TIME OR 2020-07-04 13:10:00 [facility] (NON-REPORTABLE) Medical Branch DAY SURGERY - [facility] 2020-07-04 05:01:00 Doctor Unassigned, No [facility] [place] Name Medical Branch ASSIGNMENT OF BENEFITS 2020-07-01 14:01:02 Doctor Unassigned, No [facility] Medical Branch FL TIME OR 2020-06-20 14:12:00 [facility] (NON-REPORTABLE) Medical Branch DAY SURGERY - [facility] 2020-06-20 06:01:00 Doctor Unassigned, No [facility] Name Medical Branch ASSIGNMENT OF BENEFITS 2020-06-17 21:21:05 Doctor Unassigned, No [facility] Medical Branch CONSENT/REFUSAL FOR 2020-06-15 20:59:25 Doctor Unassigned, No [facility] [place] DIAGNOSIS AND TREATMENT Name Medical Branch CONSENT/REFUSAL FOR 2020-06-15 20:59:25 Doctor Unassigned, No [facility] [place] DIAGNOSIS AND TREATMENT Name Medical Branch ASSIGNMENT OF BENEFITS 2020-06-15 20:59:08 Doctor Unassigned, No [facility] Medical Branch ASSIGNMENT OF BENEFITS 2020-06-15 20:59:08 Doctor Unassigned, No [facility] Medical Branch CONSENT/REFUSAL FOR 2020-06-15 20:58:52 Doctor Unassigned, No [facility] [place] DIAGNOSIS AND TREATMENT Name Medical Branch CONSENT/REFUSAL FOR 2020-06-15 20:58:52 Doctor Unassigned, No [facility] [place] DIAGNOSIS AND TREATMENT Name Medical Branch ASSIGNMENT OF BENEFITS 2020-06-15 20:58:37 Doctor Unassigned, No [facility] Medical Branch ASSIGNMENT OF BENEFITS 2020-06-15 20:58:37 Doctor Unassigned, No [facility] Medical Branch NOTICE OF PRIVACY 2020-06-15 20:58:21 Doctor Unassigned, No [facility] Medical Branch NOTICE OF PRIVACY 2020-06-15 20:58:21 Doctor Unassigned, No [facility] Medical Branch CONSENT/REFUSAL FOR 2020-06-15 20:58:08 Doctor Unassigned, No [facility] [place] DIAGNOSIS AND TREATMENT Name Medical Branch CONSENT/REFUSAL FOR 2020-06-15 20:58:08 Doctor Unassigned, No [facility] [place] DIAGNOSIS AND TREATMENT Name Medical Branch ASSIGNMENT OF BENEFITS 2020-06-15 20:57:50 Doctor Unassigned, No [facility] Medical Branch ASSIGNMENT OF BENEFITS 2020-06-15 20:57:50 Doctor Unassigned, No [facility] DSU PRE-OP 2020-06-15 06:01:00 Doctor Unassigned, No Univer sity [facility] Medical Ramer DSU PRE-OP 2020-06-15 06:01:00 Doctor Unassigned, No Univer [facility] Medical Ramer HEPATIC FUNCTION PANEL 2020-05-06 22:56:00 Ron, Kirstin [facility] ([id number]) (ALB,T.PRO,BILI Medical Branch T,BU/BC,ALT,AST,ALK PHOS) BASIC METABOLIC PANEL 2020-05-06 22:56:00 Kirstin Ron [facility] (NA, K, CL, CO2, GLUCOSE, Medica l Branch BUN, CREATININE, CA) XR CHEST 1 VW 2020-05-06 21:44:02 Kirstin Ron [facility] LIPASE 2020-05-06 21:40:[address] [facility] [place] [place] TROPONIN I 2020-05-06 21:40:00 [facility] WITH DIFF 2020-05-06 21:40:[address] [facility] URINALYSIS 2020-05-06 21:32:[address] [facility] COVID-19 (ID NOW RAPID 2020-05-06 21:32:00 Asaf [facility] TESTING) Medical Branch NOTICE OF PRIVACY 2020-05-06 21:14:50 Doctor Unassigned, No [facility] PRACTICES Name Medical Branch CONSENT/REFUSAL FOR 2020-05-06 21:14:25 Doctor Unassigned, No [facility] DIAGNOSIS [facility] TREATMENT Name [facility] CT ABDOMEN PELVIS W 2020-03-26 06:12:05 Erasmo Grayson [facility] CONTRAST [facility] URINALYSIS 2020-03-26 05:02:00 Erasmo Grayson [facility] LIPASE 2020-03-26 03:38:00 Erasmo Grayson [facility] COMP. METABOLIC PANEL 2020-03-26 03:38:00 Erasmo Grayson [facility] ([id number]) Medical Branch CBC WITH DIFF 2020-03-26 03:38:00 Erasmo Grayson [facility] COVID-19 (ID NOW RAPID 2020-03-26 03:38:00 Erasmo Grayson [facility] TESTING) Medical Branch CONSENT/REFUSAL FOR 2020-03-26 02:58:31 Doctor Un[facility]igned, No [facility] Name Medical Branch REFERRAL- 2020-03-18 06:01:00 Doctor Unassigned, No [facility] REQUEST/RESPONSE Name [facility] MR BRAIN WO CONTRAST 2020-02-08 13:47:00 Monet Dominguez [facility] BASIC METABOLIC PANEL 2020-02-07 08:51:00 [place], [facility] (NA, K, CL, CO2, GLUCOSE, Medica l Branch BUN, CREATININE, CA) CBC WITH DIFF 2020-02-07 08:51:00 Skip [facility] COMP. METABOLIC PANEL 2020-02-05 09:37:00 Alex Mcknight [facility] ([id number]) [facility] CBC WITH DIFF 2020-02-05 09:37:00 Juan Luis [facility] MR CERVICAL SPINE WO 2020-02-05 00:24:54 Aiden [facility] CONTRAST [facility] MAGNESIUM 2020-02-04 10:01:00 Juan Luis lesly [facility] COMP. METABOLIC PANEL 2020-02-04 10:01:00 Juan Luis lesly [facility] ([id number]) [facility] CBC WITH DIFF 2020-02-04 10:01:00 Aiden [facility] N-TERMINAL PRO-BNP 2020-02-04 10:01:00 Alex Mcknight [facility] BLOOD CULTURE SCREEN 2020-02-03 22:19:00 Alex Mcknight [facility] RENAL ARTERY DUPLEX BY 2020-02-03 17:42:39 Juan Luis lesly [facility] VASCULAR LAB [facility] AMMONIA, PLASMA 2020-02-03 17:06:00 Juan Luis [facility] SMOOTH MUSCLE AB,IGG 2020-02-03 16:43:00 Kenroy Avilez [facility] W/REFLEX [facility] OCCULT (GUAIAC) BLOOD 2020-02-03 16:42:00 [facility] Luis [facility] PHOSPHORUS 2020-02-03 08:45:00 Juan Luis lesly [facility] CREATINE KINASE 2020-02-03 08:45:00 Juan Luis [facility] URIC ACID 2020-02-03 08:45:00 Juan Luis [facility] MAGNESIUM 2020-02-03 08:45:00 Juan Luis [facility] COMP. METABOLIC PANEL 2020-02-03 08:45:00 Alex Mcknight [facility] ([id number]) Medical Branch CBC WITH DIFF 2020-02-03 08:45:00 Juan Luis [facility] N-TERMINAL PRO-BNP 2020-02-03 08:45:00 Alex Mcknight [facility] BLOOD CULTURE SCREEN 2020-02-02 20:19:00 Juan Luis lesly [facility] BLOOD CULTURE SCREEN 2020-02-02 19:58:00 Juan Luis [facility] CERULOPLASMIN 2020-02-02 19:58:00 Kenroy [facility]ilez [facility] VALPROIC ACID, FREE 2020-02-02 19:58:00 Juan Luis lesly [facility] PROTHROMBIN TIME / INR 2020-02-02 19:58:00 Alex Mcknight [facility] ANTI-NUCLEAR ANTIBODY 2020-02-02 19:58:00 Kenroy Avilez [facility] SCREEN [facility] HEPATITIS B SURFACE 2020-02-02 19:58:00 Juan Luis [facility] ANTIBODY [facility] HEPATITIS B SURFACE 2020-02-02 19:58:00 Juan Luis [facility] ANTIGEN [facility] HCV ANTIBODY 2020-02-02 19:58:00 Juan Luis [facility] HAV ANTIBODY (IGG AND 2020-02-02 19:58:00 Juan Luis [facility] IGM) [facility] PROCALCITONIN 2020-02-02 19:58:00 Juan Luis [facility] BLOOD CULTURE WORKUP 2020-02-02 19:58:00 Juan Luis [facility] CREATINE KINASE 2020-02-02 11:31:00 Juan Luis [facility] LIPASE 2020-02-02 11:31:00 [facility]. METABOLIC PANEL 2020-02-02 11:31:00 [facility] ([id number] Medical Branch LIPID PANEL ([id number])(TOTAL 2020-02-02 11:31:00 Alex Mcknight [facility] CHOLESTEROL, [facility] TRIGLYCERIDES, HDL) LITHIUM 2020-02-02 11:31:00 [facility] POCT GLUCOSE (AUTOMATED) 2020-02-02 11:24:00 Pasha Hinojosa [facility] LIPASE 2020-02-02 08:21:00 Pasha Hinojosa [facility] COMP. METABOLIC PANEL 2020-02-02 08:21:00 [facility] ([id number] LITHIUM 2020-02-02 08:21:00 Micaela [facility] CBC WITH DIFF 2020-02-02 08:21:00 Micaela [facility] GLYCOSYLATED HEMOGLOBIN 2020-02-02 08:21:00 Alex Mcknight [facility] (A1C) [facility] ACUTE CARE VENOUS BLOOD 2020-02-01 19:23:00 Pasha Hinojosa [facility] GAS [facility] US ABDOMEN COMPLETE 2020-02-01 16:39:39 [facility] GLUCOSE (AUTOMATED) 2020-02-01 12:46:00 Pasha Hinojosa [facility] LIPASE 2020-02-01 10:09:00 [facility] COMP. METABOLIC PANEL 2020-02-01 10:09:00 [facility] ([id number]) [facility] LITHIUM 2020-02-01 10:09:00 Chantale [facility] CBC WITH DIFF 2020-02-01 10:09:00 Micaela Pasha [facility] OSMOLALITY SERUM 2020-02-01 00:10:00 Micaela Pasha [facility] VITAMIN B12, LEVEL 2020-02-01 00:10:00 Pasha Hinojosa [facility] FOLATE 2020-02-01 00:10:00 Micaela [facility] ABG+COOX+NA+K+GLU+CA2+ 2020-01-31 20:39:00 [facility] 2020-01-31 18:21:00 Kirstin [facility] IRON PANEL 2020-01-31 18:21:00 Pasha Hinojosa [place] [facility] SALICYLATE 2020-01-31 18:21:[address] [facility] [place] [place] LITHIUM 2020-01-31 18:21:[address] [facility] [place] [place] VALPROIC ACID, TOTAL 2020-01-31 18:21:00 Kirstin [facility] BLOOD CULTURE WORKUP 2020-01-31 18:21:00 Kirstin [facility] ADC OR PERICO ONLY - RPR 2020-01-31 18:21:00 [facility] GRAM POSITIVE BLOOD 2020-01-31 18:21:00 Kirstin Ron [facility] PATHOGENS DNA [facility] PROBE-AEROBIC XR ABDOMEN 1 VW 2020-01-31 17:09:26 [facility] CHEST 1 VW 2020-01-31 17:09:[address] HEAD WO CONTRAST 2020-01-31 16:58:10 Kirstin Ron [facility] URINALYSIS 2020-01-31 16:13:[address] [facility] [place] [place] URINE CULTURE 2020-01-31 16:13:00 Kirstin Ron [facility] ADC / LCC - DRUG SCREEN 2020-01-31 16:13:00 Kirstin Ron [facility] Branch COVID-19 (ID NOW RAPID 2020-01-31 16:00:00 Kirstin Ron [facility] TESTING) Medical Branch LAB ONLY COVID 2020-01-31 16:00:00 Kirstin Ron [facility] INTERPRETATION [facility] BLOOD CULTURE SCREEN 2020-01-31 15:58:00 Kirstin [facility] CREATINE KINASE 2020-01-31 15:58:[address] [facility] [place] [place] LIP[facility] 2020-01-31 15:58:00 Ron, [facility] FERRITIN SERUM 2020-01-31 15:58:00 [facility] AMMONIA, PLASMA 2020-01-31 15:58:[address] [facility] TROPONIN I 2020-01-31 15:58:[address] [facility] THYROID STIMULATING 2020-01-31 15:58:00 [facility] HEPATIC FUNCTION PANEL 2020-01-31 15:58:00 Asaf [facility] ([id number]) (ALB,T.PRO,BILI Medical Ramer T,BU/BC,ALT,AST,ALK PHOS) BASIC METABOLIC PANEL 2020-01-31 15:58:00 Asaf [facility] (NA, K, CL, CO2, GLUCOSE, Medica l Branch BUN, CREATININE, CA) ETHANOL 2020-01-31 15:58:[address] [facility] DIFF CONSULT 2020-01-31 15:58:00 Micaela [facility] INTERPRETATION [facility] CBC WITH DIFF 2020-01-31 15:58:00 AsafFormerly [facility] RETICULOCYTES AUTOMATED 2020-01-31 15:58:00 [facility] N-TERMINAL PRO-BNP 2020-01-31 15:58:00 Kirstin Ron [facility] LACTIC ACID WHOLE BLOOD 2020-01-31 15:57:00 Kirstin Ron [facility] EKG-12 LEAD 2020-01-31 15:48:34 Farshad Ramirez [facility] EKG-12 LEAD 2020-01-31 15:40:[address] [facility] NOTICE OF PRIVACY 2020-01-31 15:38:09 Doctor Unassigned, No [facility] CONSENT/REFUSAL FOR 2020-01-31 15:37:54 Doctor Unassigned, No [facility] DIAGNOSIS AND TREATMENT [facility] EXTERNAL PROVIDER RECORDS 2020-01-31 05:01:00 Doctor Unassigned, No [facility] EMERGENCY DEPARTMENT 2020-01-31 05:01:00 Doctor Unassigned, No [facility] [place] DOCUM[facility] HOSPITAL ADM - MISC 2020-01-31 05:01:00 Doctor Unassigned, No [facility] H[facility] ADMISSION 2020-01-31 05:01:00 Doctor Unassigned, No Uni [facility] CT ABDOMEN PELVIS W 2019-12-18 22:11:19 Meka Hammonds [facility] CONTRAST [facility] URINALYSIS 2019-12-18 21:07:00 Meka Hammonds [facility] LIPASE 2019-12-18 20:39:00 Meka Hammonds [facility] TROPONIN I 2019-12-18 20:39:00 Meka Hammonds [facility] HEPATIC FUNCTION PANEL 2019-12-18 20:39:00 Meka Hammonds [facility] ([id number]) (ALB,T.PRO,BILI Medical Branch T,BU/BC,ALT,AST,ALK PHOS) BASIC METABOLIC PANEL 2019-12-18 20:39:00 Meka Hammonds [facility] (NA, K, CL, CO2, GLUCOSE, Medica l Branch BUN, CREATININE, CA) CBC WITH DIFF 2019-12-18 20:39:00 Meka Hammonds [facility] CONSENT/REFUSAL FOR 2019-12-18 20:15:38 Doctor Unassigned, No [facility] XR CHEST 1 VW COVID 2019-08-22 01:15:45 Erasmo Grayson [facility] LIPASE 2019-08-22 01:00:00 Erasmo Grayson [facility] TROPONIN I 2019-08-22 01:00:00 Erasmo Grayson [facility] COMP. METABOLIC PANEL 2019-08-22 01:00:00 Erasmo Grayson [facility] ([id number]) [facility] CBC WITH DIFFERENTIAL 2019-08-22 01:00:00 Erasmo Grayson [facility] PROTHROMBIN TIME / INR 2019-08-22 01:00:00 Erasmo Grayson [facility] ACTIVATED PARTIAL 2019-08-22 01:00:00 Erasmo Grayson [facility] THRMPLAS KIMANI [facility] URINALYSIS 2019-08-22 01:00:00 Erasmo Grayson [facility] CORONAVIRUS COVID-19 2019-08-22 01:00:00 Erasmo Grayson [facility] TESTING [facility] EKG-12 LEAD 2019-08-22 00:52:01 Erasmo Grayson [facility] CONSENT/REFUSAL FOR 2019-08-22 00:30:30 Doctor Unassigned, No Un [facility] DIAGNOSIS AND TREATMENT Name Medical Branch LIPASE 2019-06-25 22:49:00 [facility] TROPONIN I 2019-06-25 22:49:[address] [facility] HEPATIC FUNCTION PANEL 2019-06-25 22:49:00 [id number] ([facility] T,BU/BC,ALT,AST,ALK PHOS) BASIC METABOLIC PANEL 2019-06-25 22:49:00 [facility] (NA, K, CL, CO2, GLUCOSE, Medica l Branch BUN, CREATININE, CA) CBC WITH DIFFERENTIAL 2019-06-25 22:49:00 [facility] EKG-12 LEAD 2019-06-25 22:33:31 Ron, [facility] URINALYSIS 2019-06-25 22:13:00 Gary Chavarria o f [facility] LIPASE 2019-06-19 20:30:00 Rosalinda Fisher [facility] TEST, SERUM 2019-06-19 20:30:00 Natalia [facility] HEPATIC FUNCTION PANEL 2019-06-19 20:30:00 Rosalinda Fisher [facility] ([id number]) (ALB,T.PRO,BILI [facility] T,BU/BC,ALT,AST,ALK PHOS) BASIC METABOLIC PANEL 2019-06-19 20:30:00 Natalia [facility] (NA, K, CL, CO2, GLUCOSE, Medica l Branch BUN, CREATININE, CA) CBC WITH DIFFERENTIAL 2019-06-19 20:30:00 Natalia [facility] URINALYSIS 2019-06-19 20:30:00 Natalia Eagle [facility] CONSENT/REFUSAL FOR 2019-06-19 19:35:06 Doctor Unassigned, No [facility] DIAGNOSIS AND TREATMENT Name Medical [facility] CT ABDOMEN PELVIS W 2019-05-20 02:03:54 Singer [facility] LIPASE 2019-05-20 01:07:00 Singer [facility] COMP. METABOLIC PANEL 2019-05-20 01:07:00 [facility] ([id number]) [facility] CBC WITH DIFFERENTIAL 2019-05-20 01:07:00 [facility] URINALYSIS 2019-05-20 01:07:00 [facility] NOTICE OF PRIVACY 2019-05-20 00:08:29 Doctor Unassigned, No [facility] PRACTICES [facility] CONSENT/REFUSAL FOR 2019-05-20 00:08:14 Doctor Unassigned, No [facility] DIAGNOSIS AND TREATMENT Name [facility] CT ANKLE RIGHT WO 2018-12-05 16:22:01 Ector Frank [facility] XR FOOT 3+ VW RIGHT 2018-12-01 19:59:31 Jaki Polanco [facility] XR TIBIA FIBULA 2 VW 2018-12-01 19:59:07 Jaki Polanco [facility] Branch BASIC METABOLIC PANEL 2018-11-16 09:31:00 [facility] (NA, K, CL, CO2, GLUCOSE, Mal Medica l Branch BUN, CREATININE, CA) CBC WITH DIFFERENTIAL 2018-11-16 09:31:00 [facility] ABORH CONFIRMATION 2018-11-16 00:34:00 Emiliano [facility] URINE CULTURE 2018-11-16 00:00:00 Emiliano [facility] URINALYSIS 2018-11-15 23:58:00 Loi [facility] TYPE AND SCREEN 2018-11-15 23:00:00 Emiliano [facility] TROPONIN I 2018-11-15 21:08:00 Man [facility] LIPID PANEL ([id number])(TOTAL 2018-11-15 21:08:00 [facility] TRIGLYCERIDES, HDL) CT ABDOMEN PELVIS W 2018-11-15 16:32:45 James [facility] CONTRAST [facility] HELICOBACTER PYLORI AB, 2018-11-15 15:51:00 Emiliano [facility] IGG [facility] HEPATITIS B SURFACE 2018-11-15 15:51:00 James [facility] ANTIBODY [facility] HCV ANTIBODY 2018-11-15 15:51:00 James [facility] HEPATITIS A VIRUS 2018-11-15 15:51:00 James [facility] ANTIBODY IGM [facility] HEPATITIS B CORE ANTIBODY 2018-11-15 15:51:00 Farshad Ramirez [facility] IGM [facility] ACETAMINOPHEN 2018-11-15 15:50:00 James Farshad [facility] XR CHEST 1 VW 2018-11-15 15:08:18 James Farshad [facility] LIPASE 2018-11-15 14:40:00 James [facility] TROPONIN I 2018-11-15 14:40:00 James [facility] HEPATIC FUNCTION PANEL 2018-11-15 14:40:00 Farshad Ramirez [facility] ([id number]) (ALB,T.PRO,BILI Medical Branch T,BU/BC,ALT,AST,ALK PHOS) BASIC METABOLIC PANEL 2018-11-15 14:40:00 Farshad Ramirez [facility] (NA, K, CL, CO2, GLUCOSE, Medica l Branch BUN, CREATININE, CA) CBC WITH DIFFERENTIAL 2018-11-15 14:40:00 James [facility] GLYCOSYLATED HEMOGLOBIN 2018-11-15 14:40:00 Maryellen Cummings [facility] (A1C) [facility] PROTHROMBIN TIME / INR 2018-11-15 14:40:00 Farshad Ramirez [facility] ACTIVATED PARTIAL 2018-11-15 14:40:00 Farshad Ramirez [facility]MINAL PRO-BNP 2018-11-15 14:40:00 Farshad Ramirez [facility] EKG-12 LEAD 2018-11-15 14:26:03 Farshad Ramirez [place] o f [facility] CONSENT/REFUSAL FOR 2018-11-15 14:13:05 Doctor Unassigned, No Un [facility] DIAGNOSIS AND TREATMENT Name [facility] Encounters Start End Encounter Admission Attending Care Care Encounter Source Date/Time Date/Time Type Type Clinicians Facility Department ID 2021-05-25 Outpatient Colette HARE [facility] JARROD [id number] Univers 16:04:35 GULSHAN [facility] 2021-05-10 Outpatient Slade, Na STLMLC STLMLC [id number] 14[facility]36[facility]16 [facility] 2021-05-10 Outpatient Slade, Na STLMLC STLMLC [id number] 14:35:31 [facility] 2021-05-10 Outpatient Slade, Na STLMLC STLMLC [id number] 14:33:15 [facility] 2021-05-10 Outpatient Slade, Na STLMLC STLMLC [id number] 14:26:40 [id number] [facility] 2021-05-10 Outpatient Slade, Na STLMLC STLMLC [id number] 14:26:20 [id number] [facility] 2021-05-10 Outpatient Slade, Na STLMLC STLMLC [id number] 13:09:45 [id number] [facility] 2021-05-10 Outpatient Slade, Na STLMLC STLMLC [id number] 12:53:19 [id number] [facility] 2021-05-10 Outpatient Slade, Na STLMLC STLMLC [id number] 12:44:09 [id number] [facility] 2021-05-10 Outpatient Slade, Na STLMLC STLMLC [id number] 12:41:43 [id number] [facility] 2021-05-10 Outpatient Slade, Na STLMLC STLMLC [id number] 12:14:04 [id number] [facility] 2021-05-10 Outpatient Slade, Na STLMLC STLMLC [id number] 12:09:45 [id number] [facility] 2021-05-10 Outpatient Slade, Na STLMLC STLMLC [id number] 12:08:20 [id number] [facility] 2021-05-10 Outpatient Slade, Na STLMLC STLMLC [id number] 11:31:43 [id number] [facility] 2021-05-10 Outpatient Slade, Na STLMLC STLMLC [id number] 11:27:56 [id number] [facility] 2021-05-10 Outpatient Slade, Na STLMLC STLMLC [id number] 11:27:26 [id number] [facility] 2021-05-10 Outpatient Slade, Na STLMLC STLMLC [id number] 11:16:24 [id number] [facility] 2021-04-12 Outpatient R KODI [facility] BRETT [id number] Univers 10:13:10 KENROY Stokes [facility] 2021-02-12 Outpatient R VERA [facility] JARROD [id number] Univers 02:51:20 [facility]11 Emergency [facility] [id number] Univers 18:57:51 [facility] 2021-02-11 Emergency [facility] [id number] Univers 10:52:36 [facility] 2021-[facility]-10 Emergency [facility] [id number] Univers 23:34:27 ity [facility] 2021-02-10 Emergency [facility] [id number] Univers 16:03:46 ity [facility] 2021-02-09 Emergency [facility] [id number] Univers 14:07:13 [facility] 2021-[facility]-09 Emergency [facility] [id number] Univers 13:02:51 [facility]21 [facility] PENNY[facility] Surgery [id number] [facility] 22:26:45 GOTTI 2021-01-21 Inpatient ER NGUYỄN, [facility] [id number] [facility] 22:24:24 2021-01-21 Outpatient PENNY, [facility] Surgery [id number] [facility] 18:10:30 GOTTI 2020-08-26 Inpatient ER NGUYỄN, [facility] Med [id number] [facility] 02:30:00 2022-01-02 2022-01-02 Outpatient R WU [facility] [id number] Univers 10:00:00 10:00:00 VIRA [id number] [facility] 2022-01-02 2022-01-02 Outpatient R WU [facility] [id number] Univers 10:00:00 10:00:00 VIRA [facility] 2021-06-05 2021-06-05 Outpatient R [facility] [id number] Univers 10:30:00 10:30:00 [id number] [facility] 2021-06-05 2021-06-05 [facility] [id number] Univers 10:30:00 10:30:00 GULSHAN [facility] 2021-05-21 2021-05-22 [facility] [id number] Univers 23:29:00 01:11:00 CONSUELO [facility] 2021-05-21 2021-05-22 [facility] 1.2.840.114 [id number] Univers 23:29:00 01:11:00 Consuelo MARCUM [id number] i ty mary [id number] [id number] [facility] 084 Branch 2021-05-19 2021-05-19 Letter JAQUELIN Mendoza 1.2.840.114 [id number] Univers 00:00:00 00:00:00 (Out) Kelsy Ion VÁZQUEZ [id number] it y of [facility] [id number] [facility] 019 Branch 2021-05-19 2021-05-19 Telephone Nurse, Phillip [facility] 1.2.840.114 [id number] Univers 00:00:00 00:00:00 Db Urgent HEALTH [id number] ity of [facility] [id number] Archie as BALAJI?BLEA [id number] [address] MEDICAL OFFICE [facility] 2021-05-18 2021-05-18 Outpatient R JAROCHO [facility] [id number] Univers 09:00:00 09:41:26 RANIA ity of [facility] 2021-05-18 2021-05-18 Urgent [facility] 1.2.840.114 [id number] Univers 09:00:00 09:20:00 Care [place], Korina HEALTH [id number] ity of [place] [id number] Archie as BALAJI?BLEA [id number] [address] MEDICAL OFFICE [facility] 2021-05-18 2021-05-18 Outpatient R [facility] [id number] Univers 09:00:00 09:00:00 [id number] ity of [facility] 2021-05-18 2021-05-18 Letter Doctor HAMMER 1.2.840.114 [id number] Univers 00:00:00 00:00:00 (Out) UnassKATHIE bonilla [id number] ity of [place] [facility] [id number] [facility] 044 Branch 2021-05-15 2021-05-15 ambulatory STLMLC STLMLC [id number] [facility] 2021-05-09 2021-05-09 ambulatory STLMLC STLMLC [id number] [facility] 00[facility]:00 Korina linda [facility] Clin[facility] 2021-04-19 2021-04-19 ambulatory STLMLC STLMLC [id number] [facility] 00:[facility]:00 Korina Hernandez l Outpat[facility] ent Clinics 2021-04-18 2021-04-18 Outpatient R [facility] [id number] Univers 10:15:00 10:15:00 [id number] ity [facility] 2021-04-18 2021-04-18 Outpatient R KODI [facility] [id number] Univers 10:15:00 10:15:00 KENROY Stokes [facility] 2021-04-15 2021-04-15 Emergency [facility] 1.2.840.114 [id number] Univers 13:41:00 15:39:00 oCnsuelo [place] [id number] i ty [facility] [id number] [place] [facility] [id number] [address] 2021-04-15 2021-04-15 Nurse Nurse, Phillip H[facility] 1.2.840.114 [id number] Univers 13:20:00 13:40:00 [facility] [id number] ity [facility] [id number] Archie as BALAJI?BLEA [id number] Fl ladonna[address] MEDICAL OFFICE BUILDING 2021-04-15 2021-04-15 Outpatient [facility] [id number] Univers 13:20:00 13:37:39 [facility] 2021-04-15 2021-04-15 Outpatient [facility] ERT [id number] Univers 13:20:00 13:37:39 KORINA [facility] 2021-04-15 2021-04-15 Outpatient R [facility] [id number] Univers 13:20:00 13:20:00 [id number] [facility] 2021-04-03 2021-04-03 ambulatory STLMLC STLMLC [id number] [facility] 2021-03-31 2021-03-31 ambulatory STLMLC STLMLC [id number] [facility]00 [facility] 2021-03-25 2021-03-25 Emergency [facility] [id number] Univers 18:03:00 21:41:00 [facility] 2021-03-25 2021-03-25 [facility] 1.2.840.114 [id number] Univers 18:03:00 21:41:00 Consuelo [place] [id number] i ty [facility] [id number] [facility] [id number] [address] 2021-03-25 2021-03-25 Outpatient R [facility] [id number] Univers 17:30:00 17:30:00 [id number] [facility] 2021-03-25 2021-03-25 Outpatient R HAKEEM [facility] [id number] Univers 11:40:00 11:23:42 [facility] 2021-03-25 2021-03-25 Imm/Inj Vaccine, Ang Db [facility] 1.2.840 .114 [id number] Univers 11:00:13 11:10:13 Visit [facility] [id number] itshey [facility] [id number] Archie as BALAJI?BLEA [id number] [address] MEDICAL OFFICE BUILDING 2021-03-21 2021-03-21 ambulatory STLMLC STLC [id number] [facility] 2021-03-20 2021-03-20 Emergency X [facility] ERT [id number] Univers 16:03:00 19:39:00 MEKA [facility] 2021-03-20 2021-03-20 Emergency [facility] [id number] Univers 16:03:00 19:39:00 Meka MARCUM [id number] ity of [facility] [id number] [facility] [id number] [address] 2021-02-12 2021-02-12 Emergency [facility] ERT [id number] Univers 14:09:00 21:08:00 ROSALINDA itshey [facility] 2021-02-12 2021-02-12 Emergency [facility] [id number] Univers 14:09:00 21:08:00 Rosalinda Upton JOSSUE [id number] ity of [place] 4.2.7.2.686 [facility] [id number] [address] 2021-01-30 2021-01-30 Outpatient [facility] [id number] Univers 00:00:00 00:00:00 VIRA [id number] ity [facility] 2021-01-17 2021-01-18 [facility] 1.2.840.114 [id number] Univers 21:29:00 01:13:00 Maru Marcum [id number] ity of [place] 4.2.7.2.686 [facility] [id number] [address] 2021-01-17 2021-01-18 Emergency X [facility] ERT [id number] Univers 21:29:00 01:13:00 MARU li [facility] 2021-01-17 2021-01-17 Orders Doctor HAMMER 1.2.840.114 [id number] Univers 00:00:00 00:00:00 Only Unassigned, KATHIE [id number] ity of [place] [facility] [id number] Archie as [id number] [place] [address] Branch 2021-01-07 2021-01-07 [facility] [id number] [id number] Univers 11:38:27 23:59:00 Encounter [facility] [id number] ity of [place] 4.2.7.2.686 Archie as Balaji?Blea [id number] Fl indiana marroquin [address] [facility] 2021-01-07 2021-01-07 Outpatient R JAROCHO [facility] [id number] Univers 11:40:00 11:55:26 CONSUELO itshey [facility] 2021-01-07 2021-01-07 Urgent Consuelo Avendaño [facility] 1.2.840.114 [id number] Univers 11:22:24 11:55:26 Juan [facility] [id number] ity [facility] [id number] Archie as Balaji?Blea [id number] Fl indiana marroquin [address] [facility] 2021-01-07 2021-01-07 Outpatient R [facility] [id number] Univers 11:40:00 11:40:00 [id number] [facility] 2021-01-07 2021-01-07 Letter JAQUELIN [place] 1.2.840.114 [id number] Univers 00:00:00 00:00:00 (Out) Karlene VÁZQUEZ 350.1.13.10 i [facility] [id number] [facility] [address] 2021-01-02 2021-01-02 Outpatient [facility] [id number] Univers 00:00:00 00:00:00 VIRA [id number] [facility] 2020-12-30 2020-12-30 Emergency X [facility] ERT [id number] Univers 13:14:00 17:53:00 MARU [facility] 2020-12-30 2020-12-30 Emergency [facility] 1.2.840.114 [id number] Univers 13:14:00 17:53:00 Maru Marcum 350.1.13.10 ity [facility] [id number] [place] [facility] [id number] [facility] [address] 2020-12-30 2020-12-30 Office [facility] 1.2.840.114 [id number] Univers 10:00:12 10:49:11 Visit Vira Marcum [id number] ity of [place]2.7.2.686 [place] [facility] [id number] [facility] 134 [facility] 2020-12-30 2020-12-30 Outpatient R ADUM, [facility] [id number] Univers 09:30:00 10:49:11 VIRA ity [facility] 2020-12-30 2020-12-30 Outpatient R AD, [facility] [id number] Univers 08:30:00 08:30:00 VIRA [id number] ity [facility] 2020-12-23 2020-12-23 [facility] 1.2.840.114 [id number] Univers 15:59:00 23:59:00 Encounter Vira Marcum [id number] ity of [place] 4.2.7.2.686 [place] [id number] [facility] [address] [place] [address] 2020-12-23 2020-12-23 Outpatient R ADUM, [facility] [id number] Univers 00:00:00 00:00:00 VIRA [id number] ity [facility] 2020-12-23 2020-12-23 Outpatient R AD, [facility] [id number] Univers 00:00:00 00:00:00 VIRA ity [facility] 2020-12-16 2020-12-16 [facility] 1.2.840.114 [id number] Univers 09:56:42 11:11:19 Visit Vira Marcum [id number] ity of [place] 4.2.7.2.686 [place] Profess[place] [id number] Fl dic[address] 2020-12-16 2020-12-16 Outpatient R AD, [facility] [id number] Univers 10:00:00 10:00:00 VIRA [id number] ity [facility] 2020-12-16 2020-12-16 Outpatient R ADUM, [facility] [id number] Univers 10:00:00 10:00:00 VIRA ity [facility] 2020-12-14 2020-12-14 [facility] [id number] 2020-12-05 2020-12-05 Emergency [facility] 1.2.840.114 [id number] Univers 14:07:00 18:52:00 Alirio Marcum 350.1.13.10 ity [facility] 4.2.7.2.686 [facility] [id number] [address] 2020-12-05 2020-12-05 Emergency X [facility] ERT [id number] Univers 14:07:00 18:52:00 ALIRIO ity [facility] 2020-11-10 2020-11-10 [id number] 2020-10-11 2020-10-12 Emergency Farshad Ramirez 1.2.840. 114 [id number] 08:30:00 20:40:00 Kadi Duggan 350.1.13.10 [facility] 4.2.7.2.68[facility] [id number] [facility] 2020-10-11 2020-10-12 Emergency Farshad Ramirez 1.2.840. 114 [id number] [facility] 08:30:00 20:40:00 Kadi Duggan 350.1.13.10 [facility] 4.2.7.[address] [place] [address] [id number] 2020-10-11 2020-10-12 Outpatient [facility] [id number] [facility] 08:30:00 20:40:00 [facility] 2020-10-04 2020-10-04 Emergency [facility] [id number] 17:45:00 20:23:00 Maisha Marcum [id number] [place] 4.2.7.2.686 [place] [id number] 2020-10-04 2020-10-04 Emergency [facility] [id number] [facility] 17:45:00 20:23:00 Maisha Marcum 350.1.13.10 i ty of [place] 4.2.7.2.686 [facility] [phone] [address] 2020-10-04 2020-10-04 Emergency X [facility] ERT [id number] [facility] 17:45:00 20:23:00 MAISHA li [facility] 2020-09-30 2020-09-30 Outpatient [facility]ML[facility] [id number] [facility] 2020-09-29 2020-09-29 Outpatient [facility] [id number] [facility] 2020-09-19 2020-09-19 Outpatient [facility] [id number] [facility] 2020-09-16 2020-09-16 Outpatient [facility]ML[facility] [id number] [facility] 2020-09-02 2020-09-02 Outpatient [facility]MLC [facility] [id number] [facility] 2020-08-05 2020-08-05 Emergency [facility] 1.2.840.114 [id number] 08:16:00 09:12:00 Maru Marcum 350.1.13.10 [place] [address] [place] [address] [phone] [facility] 2020-08-05 2020-08-05 Emergency [facility] 1.2.840.114 [id number] [facility] 08:16:00 09:12:00 Maru Marcum 350.1.13.10 ity of [place] 4.2.7.2.686 [facility] [phone] [address] 2020-08-05 2020-08-05 Emergency X SASHA, [facility] ERT [id number] Univers 08:16:00 09:12:00 MARU [facility] 2020-07-19 2020-07-19 Outpatient Colette MARSH [facility] [id number] Univers 11:20:00 11:11:33 SULAIMAN [facility] 2020-07-18 2020-07-18 [facility] 1.2.840.114 [id number] 06:28:00 08:29:00 Encounter Moise Maxine [place] 350.1.13.10 [place] 4.2.7.2.686 Surgical [phone] [place] [address] 2020-07-18 2020-07-18 [facility] 1.2.840.114 [id number] Univers 06:28:00 08:29:00 Encounter Moise S [place] 350.1.13.10 it[place] of [place] [id number] [facility] [address] 2020-07-18 2020-07-18 Surgery [facility] 1.2.840.114 [id number] 07:30:00 08:00:00 [place] 350.1.13.10 [place] 4.2.7.2.686 Surgical [id number] [place] [address] 2020-07-18 2020-07-18 Surgery [facility] 1.2.864.221 [id number] Univers 07:30:00 08:00:00 Moise S [place] 350.1.13.10 it[place] of [place] [id number] [facility] 020 Ramer 2020-07-15 2020-07-15 Outpatient R [facility] [id number] -[id number] Univers 13:15:00 13:15:00 [id number] [facility] 2020-07-15 2020-07-15 Outpatient Colette GAMEZ [facility] [id number] Univers 08:00:00 08:00:00 [facility] 2020-07-11 2020-07-11 Outpatient Colette MARSH [facility] [id number] Univers 12:00:00 12:00:00 SULAIMAN [facility] 2020-07-08 2020-07-08 [facility] [id number] Univers 10:40:00 10:40:00 SULAIMAN [facility] 2020-07-07 2020-07-07 Emergency Jaki Polanco [facility] 1.2.840.114 [id number] 18:47:00 22:05:00 Sydnie Marcum 350.1.13.10 [place] 4.2.7.2.686 [place] [id number] 084 2020-07-07 2020-07-07 Emergency Jaki Polanco [facility] 1.2.840.114 [id number] Univers 18:47:00 22:05:00 Sydnietonie Marcum 350.1.13.10 i ty [place].2.[place] [id number] [facility] 084 Ramer 2020-07-07 2020-07-07 Emergency X Jaki POLANCO [facility] ERT [id number] Univers 18:47:00 22:05:00 ity [facility] 2020-07-07 2020-07-07 Orders Doctor JAQUELIN 1.2.840.114 [id number] 00:00:00 00:00:00 Only Unassigned, KATHIE 350.1.13.10 [place] [facility] 4.2.7.2.686 [id number] 009 2020-07-07 2020-07-07 Orders Doctor JAQUELIN 1.2.840.114 [id number] Univers 00:00:00 00:00:00 Only Unassigned, KATHIE 350.1.13.10 ity of [place] [facility] 4.2.7.2.[id number] [facility] 009 Ramer 2020-07-07 2020-07-07 Outpatient STLMLC STLMLC [id number] [facility] St 00:00:00 00:00:00 Korina Steven ent Clinics 2020-07-04 2020-07-04 [facility] 1.2.840.114 [id number] 06:30:00 08:44:00 Encounter Moise Goodman [place] 350.1.13.10 [place] 4.2.7.2.686 Surgical [id number] [place] [address] 2020-07-04 2020-07-04 [facility] Vera, [facility] 1.2.840.114 [id number] [facility] 06:30:00 08:44:00 Encounter Moise Goodman [place] 350.1.13.10 ity of [place] [phone] [place] 907411 [place] 2020-07-04 2020-07-04 Outpatient R [facility] JARROD [id number] [facility] 06:30:00 08:44:00 MOISE ity of [facility] 2020-07-04 2020-07-04 Orders Doctor HAMMER 1.2.840.114 [id number] 00:00:00 00:00:00 Only Unassigned, KATHIE 350.1.13.10 [place] [facility] 4.2.7.2.686 [id number] 009 2020-07-04 2020-07-04 Orders Doctor HAMMER 1.2.840.114 [id number] Univers 00:00:00 00:00:00 Only Unassigned, KATHIE 350.1.13.10 ity of [place] HOSPITAL 4.2.7.2.[id number] [facility] 009 [address] 2020-07-01 2020-07-01 Laboratory Only, [facility] 1.2.840.114 [id number] 09:02:10 09:17:10 Only Test [place] 350.1.13.10 [place] 4.2.7.2.686 [place] [id number] 353 2020-07-01 2020-07-01 Laboratory Only, [facility] Test [facility] 1.2.840. 114 [id number] Univers 09:02:10 09:17:10 Only Moise Gamezton 350.1.13.1 0 ity of [place] [id number] [facility] 353 [address] 2020-07-01 2020-07-01 Outpatient R [facility] [id number] -[id number] Univers 08:30:00 08:30:00 [id number] ity [facility] 2020-07-01 2020-07-01 [facility] [id number] Univers 08:30:00 08:30:00 MOISE ity [facility] 2020-07-01 2020-07-01 Orders Doctor JAQUELIN 1.2.840.114 [id number] 00:00:00 00:00:00 Only Unassigned, KATHIE 350.1.13.10 [place] [facility] 4.2.7.2.686 [id number] 009 2020-07-01 2020-07-01 Orders Doctor JAQUELIN 1.2.840.114 [id number] Univers 00:00:00 00:00:00 Only Unassigned, KATHIE 350.1.13.10 ity of [place] [facility] 4.2.7.2.686 Archie as [phone] [address] 2020-06-30 2020-06-30 Outpatient [facility] [id number] [facility] 2020-06-22 2020-06-22 Outpatient [facility] [id number] [facility] 2020-06-20 2020-06-20 [facility] 1.2.840.114 [id number] 06:29:00 08:58:00 Encounter Moise Marcmu 350.1.13.10 [place] 4.2.7.2.686 Surgical [id number] [place] [address] 2020-06-20 2020-06-20 [facility] 1.2.840.114 [id number] Univers 06:29:00 08:58:00 Encounter Moise Goodman [place] 350.1.13.10 ity of [place] [phone] Med ical [address] 2020-06-20 2020-06-20 [facility]patient [facility] [id number] [facility] 06:29:00 08:58:00 MOISE ity of [facility] 2020-06-20 2020-06-20 [facility]est[facility] 1.2.840.11 [id number] 08:03:00 08:12:00 Event Dominguez Seo Jossue 350.1.13.10 [place] 4.2.7.2.686 Surgical [id number] [place] [address] 2020-06-20 2020-06-20 Anesthesia Abe Arana [facility] 1.2.840.11 [id number] [facility] 08:03:00 08:12:00 Event Dominguez Seo Jossue 350.1.13.10 ity of [place] [phone] [address] 2020-06-20 2020-06-20 Orders Doctor JAQUELIN 1.2.840.114 [id number] 00:00:00 00:00:00 Only Unassigned, KATHIE 350.1.13.10 [place] [facility]PITAL 4.2.7.2.686 [id number] [facility] 2020-06-20 2020-06-20 Orders Doctor JAQUELIN 1.2.840.114 [id number] [facility] 00:00:00 00:00:00 Only Unassigned, KATHIE 350.1.13.10 ity of [place] HOSPITAL 4.2.7.2.686 Archie as [id number] [address] 2020-06-19 2020-06-19 Outpatient [facility] [id number] [facility] 08:15:00 08:15:00 ity of [facility] 2020-06-17 2020-06-17 [employer] Marcie Johnson [facility] 1.2.840.114 [id number] 15:27:53 15:42:53 Visit Lab Main Jossue 350.1.13.10 [place] 4.2.7.2.686 Professio [id number] [address] 2020-06-17 2020-06-17 [employer] Marcie Johnson Lab Main [facility] 1.2.8 40.114 [id number] [facility] 15:27:53 15:42:53 Visit Moise Gamez 350.1.13.1 0 ity of [place] 4.2.7.2.[address] [facility] [phone] [address] 2020-06-17 2020-06-17 Laboratory Only, [facility] 1.2.840.114 [id number] 15:26:19 15:41:19 Only Test [place] 350.1.13.10 [place] 4.2.7.2.686 [place] [id number] [facility] 2020-06-17 2020-06-17 Laboratory Only, [facility] Test [facility] 1.2.840. 114 [id number] Univers 15:26:19 15:41:19 Only Moise Gamez 350.1.13.1 0 ity of [place] 4.2.7.2.[place] [id number] [address] 2020-06-17 2020-06-17 Outpatient R VERA [facility] [id number] Univers 12:30:00 12:30:00 MOISE ity [facility] 2020-06-17 2020-06-17 Outpatient R [facility] [id number] -[id number] Univers 12:15:00 12:15:00 [id number] [facility] 2020-06-17 2020-06-17 Orders Doctor HAMMER 1.2.840.114 [id number] 00:00:00 00:00:00 Only Unassigned, KATHIE 350.1.13.10 [place] [facility] 4.2.7.2.686 [id number] 009 2020-06-17 2020-06-17 Orders Doctor HAMMER 1.2.840.114 [id number] Univers 00:00:00 00:00:00 Only Unassigned, KATHIE 350.1.13.10 ity of [place] HOSPITAL 4.2.7.2.686 Archie as [phone] [address] 2020-05-22 2020-05-22 [facility] [id number] Univers 08:50:00 08:50:00 SULAIMAN ity [facility] 2020-05-06 2020-05-06 Emergency Ron, [facility] 1.2.840.114 [id number] 15:21:00 18:38:00 Kirstin Marcum 350.1.13.10 [place] 4.2.7.2.686 [place] [id number] 084 2020-05-06 2020-05-06 Emergency Ron, [facility] 1.2.840.114 [id number] Univers 15:21:00 18:38:00 Kirstin Marcum 350.1.13.10 i ty of [place]2.[place].2.[place] [id number] [facility] 084 Ramer 2020-05-04 2020-05-04 Outpatient R [facility] [id number] -[id number] Univers 09:20:00 09:20:00 [id number] ity [facility] 2020-05-04 2020-05-04 Outpatient R [facility] [id number] Univers 09:20:00 09:20:[facility] 2020-05-04 2020-05-04 Laboratory Lab, [facility] 1.2.840.114 [id number] 08:54:13 09:14:13 Only Fam Pob I Health 350.1.13.10 [place] 4.2.7.2.686 Professio [phone] [place] [address] [address] 2020-05-04 2020-05-04 Laboratory Lab, [facility] Fam Pob I [facility] 1.2. 840.114 [id number] Univers 08:54:13 09:14:13 Only Anene, [facility] 350.1.13.10 y [facility] 4.2.7.2.686 Archie as Professio [id number] Fl dical [address] Office [address] [facility] 2020-04-14 2020-04-14 Anirudh Elizabeth 1.2.840.114 80 [id number] 00:00:00 00:00:00 (Out) KATHIE 350.1.13.10 [facility] 4.2.7.2.686 [id number] 043 2020-04-14 2020-04-14 Anirudh Elizabeth 1.2.840.114 [id number] Univers 00:00:00 00:00:00 (Out) KATHIE 350.1.13.10 it y of HOSPITAL 4.2.7.2.[phone] [facility] 043 [address] 2020-03-25 2020-03-26 [facility] 1.2.407.933 [id number] 21:13:00 02:01:00 Erasmo Marcum 350.1.13.10 [place] 4.2.7.2.686 [place] [id number] [facility] 2020-03-25 2020-03-26 [facility] 1.2.300.876 [id number] [facility] 21:13:00 02:01:00 Erasmo Marcum 350.1.13.10 ity of [place] 4.2.7.2.686 [facility] [id number] [facility] 084 [place] 2020-03-18 2020-03-18 Orders Doctor JAQUELIN 1.2.840.114 [id number] 00:00:00 00:00:00 Only Unassigned, KATHIE 350.1.13.10 [place] [facility] 4.2.7.2.686 [id number] [facility] 2020-03-18 2020-03-18 Orders Doctor JAQUELIN 1.2.840.114 [id number] [facility] 00:00:00 00:00:00 Only Unassigned, KATHIE 350.1.13.10 ity of [place] [facility] 4.2.7.2.[id number] [facility] 009 [address] 2020-03-08 2020-03-08 Outpatient [facility] [id number] [facility] St 00:00:00 00:00:00 [facility] 2020-03-07 2020-03-07 Outpatient [facility] [id number] [facility]00 [facility] 2020-01-31 2020-02-08 [facility] 1.2.840.1 14 [id number] 10:39:00 16:12:00 Encounter Kirstin Ron [facility] 350.1.13.10 Pasha Hinojosa 4.2.7.2.686 oseas [facility] [phone] [facility] 110 ([employer]) 2020-01-31 2020-02-08 [facility] [place] [facility] 1.2.840.1 14 [id number] [facility] 10:39:00 16:12:00 Encounter Kirstin Ron [facility] 350.1.13.10 ity of [place] Hinojosa [place] 4.2.7.2.686 [facility] [phone] [facility] [place] [address] [place] ([employer]) 2020-01-11 2020-01-11 Outpatient [facility] [id number] [facility] 2020-01-06 2020-01-06 [id number] 2019-12-18 2019-12-18 Emergency [facility] 1.2.350.461 [id number] 15:26:00 19:16:00 Meka G [place] 350.1.13.10 [place] 4.2.7.2.686 [place] [id number] [facility] 2019-12-18 2019-12-18 [facility] 1.2.606.143 [id number] [facility] 15:26:00 19:16:00 Meka G [place] 350.1.13.10 ity of [place] 4.2.7.2.686 [facility] [phone] [address] 2019-10-06 2019-10-06 [facility] [id number] 10:40:00 10:40:00 [employer] [place] [facility] Family Medicine l Medicine Outpati ent Clinics 2019-09-17 2019-09-17 Out[facility] [id number] 10:24:00 10:24:00 t [employer] [place] [facility] Family Medicine l Medicine Outpati ent Clinics 2019-08-21 2019-08-21 Emergency [facility] 1.2.550.815 [id number] 19:42:19 23:51:00 Erasmo Marcum 350.1.13.10 [place] 4.2.7.2.686 [place] [id number] 084 2019-08-21 2019-08-21 Emergency X IVY [facility] ERT [id number] Univers 19:42:19 23:51:00 ERASMO ity [facility] 2019-08-21 2019-08-21 Emergency [facility] 1.2.480.028 [id number] Univers 19:42:19 23:51:00 Erasmo Marcum 350.1.13.10 ity of [place] 4.2.7.2.686 [facility] [id number] [address] 2019-07-14 2019-07-14 [facility] [id number] 15:00:00 15:00:00 [employer] Adena s Zazengo [facility] ent Clinics 2019-06-25 2019-06-25 Emergency [facility] 1.2.840.114 [id number] 16:52:11 20:04:00 Kirstin Marcum 350.1.13.10 [place] 4.2.7.2.686 [place] [id number] [facility] 2019-06-25 2019-06-25 [facility] 1.2.840.114 [id number] [facility] 16:52:11 20:04:00 Kirstin Marcum 350.1.13.10 i ty of [place] 4.2.7.2.686 [facility] [phone] [address] 2019-06-19 2019-06-19 Emergency [facility] 1.2.257.645 [id number] 13:58:11 19:09:00 Rosalinda Richardston 350.1.13.10 [place] 4.2.7.2.686 [place] [id number] [facility] 2019-06-19 2019-06-19 Emergency [facility] 1.2.533.716 [id number] 2000 [facility] 13:58:11 19:09:00 Rosalinda Marcum 350.1.13.10 ity of [place] 4.2.7.[address] [place] [address] [phone] [place] [address] Branch 2019-06-19 2019-06-19 Orders Doctor JAQUELIN 1.2.840.114 [id number] 00:00:00 00:00:00 Only Unassigned, KATHIE 350.1.13.10 [place] [facility] 4.2.7.2.686 [id number] 009 2019-06-19 2019-06-19 Orders Doctor JAQUELIN 1.2.840.114 [id number] Univers 00:00:00 00:00:00 Only Unassigned, KATHIE 350.1.13.10 ity of [place] [facility] 4.2.7.2.686 Archie [id number] [address] 2019-05-19 2019-05-19 Emergency Singer [facility] 1.2.594.548 [id number] 18:29:04 21:26:00 Gary Jossue 350.1.13.10 [place] 4.2.7.2.686 [place] [id number] [facility] 2019-05-19 2019-05-19 Emergency X SINGER [facility] ERT [id number] Univers 18:29:04 21:26:00 GARY guillermo [facility] 2019-05-19 2019-05-19 Emergency Singer [facility] 1.2.039.794 [id number] Univers 18:29:04 21:26:00 Gary Jossue 350.1.13.10 i ty of [place] 4.2.7.2.686 [facility] [id number] [address] 2019-03-02 2019-03-02 [facility] [id number] 10:40:00 10:40:00 [employer] [facility] Medicine Medicine Outpati ent Clinics 2019-02-04 2019-02-04 [facility] [id number] 10:55:00 10:55:00 [employer] [facility] Medicine l Medicine Outpati ent Clinics 2018-12-24 2018-12-24 Telephone Christina MIMICHOACANO 1.2.840.114 [id number] 00:00:00 00:00:00 [facility] 350.1.13.10 Surgical 4.2.7.2.686 Specialti [id number] es 198 [place] 2018-12-24 2018-12-24 Telephone [facility] 1.2.840.114 [id number] Univers 00:00:00 00:00:00 Steven Chen 350.1.13.10 it y of Surgical 4.2.7.2.686 Archie as Specialti [id number] Fl dical es 198 [facility] 2018-12-18 2018-12-18 [facility] 1.2.840.114 [id number] [facility] 08:54:57 23:59:00 Encounter Steven Chen 350.1.13.10 ity of Surgical 4.2.7.2.686 Archie as Specialti [id number] Fl dical es 809 [facility] 2018-12-18 2018-12-18 Office [facility] 1.2.658.088 [id number] Univers 08:37:16 09:02:40 Visit Steven Chen 350.1.13.10 it y of Surgical 4.2.7.2.686 Archie as Specialti [id number] Fl dical es 198 [facility] 2018-12-08 2018-12-08 Office [facility] 1.2.636.174 [id number] Univers 15:02:42 15:51:02 Visit Steven Chen 350.1.13.10 it y of Surgical 4.2.7.2.686 Acrhie as Specialti [id number] Fl dical es 198 [facility] 2018-12-05 2018-12-05 [facility] 1.2.840.114 [id number] Univers 09:47:09 23:59:00 Encounter Ector Maxine [place] 350.1.13.10 ity of [place].2.7.2.[place] [id number] [facility] 801 [place] 2018-12-05 2018-12-05 Office [facility] 1.2.820.038 [id number] Univers 07:55:02 09:26:33 Visit Steven Chen 350.1.13.10 it y of Surgical 4.2.7.2.686 Archie as Specialti [id number] Me dical es 198 [facility] 2018-12-01 2018-12-01 Emergency Jaki Polanco [facility] 1.2.840.114 [id number] Univers 14:24:08 18:38:00 Sydnie Marcum 350.1.13.10 i ty of [place] 4.2.7.2.686 [facility] [id number] [facility] 084 [address] 2018-11-18 2018-11-18 Transition Nhan Smith 1.2.840.114 [id number] Univers 00:00:00 00:00:00 of Care Pricilla Ascencio 350.1.13.10 it y of [place] 4.2.7.2.686 [facility] [id number] [facility] 403 [address] 2018-11-15 2018-11-17 Emergency Farshad Ramirez 1.2.840. 114 [id number] Univers 09:29:33 16:00:00 Sundar Brooke 350.1.13.10 ity of [facility] 4.2.7.2.[address] [place] [id number] [facility] 099 [address] 2018-10-07 2018-10-07 [facility] [id number] 11:00:00 11:00:00 [facility] 2018-07-28 2018-07-28 [facility] [id number] 09:57:00 09:57:00 [facility] 2018-07-25 2018-07-25 [facility] [id number] 14:40:00 14:40:00 [facility] Clinics Results Test Description Test Time Test Comments Results Result Comments Source TROPONIN I 2021-05-22 06:39:31 Test Item Value Reference Range Interpretation Comme nts TROPONIN I (test code = 0.027 ng/mL See_Comment [Au tomated message] The [id number]) system which ge nerated this result tra [...] biotin. Lab Interpretation Normal (test code = 77075-3) [id number] 06:36:10 Test Item Value Reference Range Interpretation Comments NT-proBNP (test code 68 pg/mL See_Comment [Autom ated = 9004043219) message] The system which generated this result transmitted reference range : <=125. The reference range was not used to interpret this result as normal/abnormal . KIM (test code = KIM) Biotin has been reported to cause a negative bias, interpret results relative to patient's use of biotin. Lab Interpretation Normal (test code = 58052-0) [facility] WITH [id number] 06:30:54 Test Item Value Reference Range Interpretation Comments WBC (test code = See_Comment L [Automated 0689-2) message] The sy stem which generated this result transmitted reference range : 4.30 - 11.10 10*3/?L. The reference range was not used to interpret this result as normal/abnormal . RBC (test code = See_Comment L [Automated 536-8) message] The sy stem which generated this result transmitted reference range : 3.93 - 5.25 10*6/?L. The reference range was not used to interpret this result as normal/abnormal . HGB (test code = 10.4 g/dL 11.6-15.0 L 718-7) HCT (test code = 32.3 % 35.7-45.2 L 4544-3) MCV (test code = 91.8 fL 80.6-95.5 787-2) MCH (test code = 29.5 pg 25.9-32.8 785-6) MCHC (test code = 32.2 g/dL 31.6-35.1 786-4) RDW-SD (test code = 47.1 fL 39.0-49.9 28232-7) RDW-CV (test code = 13.9 % 12.0-15.5 788-0) PLT (test code = See_Comment L [Automated 777-3) message] The sy stem which generated this result transmitted reference range : 166 - 358 10*3/ ?L. The reference r luca was not used to interpret this result as normal/abnormal . MPV (test code = 10.2 fL 9.5-12.9 81712-8) NRBC/100 WBC (test See_Comment [Automat ed code = [id number]) message] The system which generated this result transmitted reference range : 0.0 - 10.0 /100 WBCs. The refer ence range was not u sed to interpret th is result as normal/abnormal . NRBC x10^3 (test code <0.01 See_Comment [Auto mated = [id number]) message] The s ystem which generated this result transmitted reference range : 10*3/?L. The reference range was not used to interpret this result as normal/abnormal . GRAN MAT (NEUT) % 62.6 % (test code = 770-8) IMM GRAN % (test code 0.00 % = 5033362517) LYMPH % (test code = 25.3 % 736-9) MONO % (test code = 9.5 % 5905-5) EOS % (test code = 2.2 % 713-8) BASO % (test code = 0.4 % 706-2) GRAN MAT x10^3(ANC) 1.71 10*3/uL 1.88-7.09 L (test code = 7268497481) IMM GRAN x10^3 (test <0.03 0.00-0.06 code = 0241798808) LYMPH x10^3 (test code 0.69 10*3/uL 1.32-3.29 L = 731-0) MONO x10^3 (test code 0.26 10*3/uL 0.33-0.92 L = 742-7) EOS x10^3 (test code = 0.06 10*3/uL 0.03-0.39 711-2) BASO x10^3 (test code <0.03 0.01-0.07 = 704-7) Lab Interpretation Abnormal (test code = 84057-8) [facility]. METABOLIC PANEL ([id number])2021-05-22 06:27:49 Test Item Value Reference Range Interpretation Comments NA (test code = 138 mmol/L 135-145 7360255517) K (test code = 4.9 mmol/L 3.5-5.0 6757355957) CL (test code = 105 mmol/L 98-108 2862640279) CO2 TOTAL (test code = 24 mmol/L 23-31 7268838509) AGAP (test code = 2-16 4122242652) BUN (test code = 6 mg/dL 7-23 L 0943437125) GLUCOSE (test code = 128 mg/dL 70-110 H 2356750380) CREATININE (test code = 0.54 mg/dL 0.50-1.04 5073681877) TOTAL BILI (test code = 1.3 mg/dL 0.1-1.1 H 1058114702) CALCIUM (test code = 8.4 mg/dL 8.6-10.6 L 8234684630) T PROTEIN (test code = 8.3 g/dL 6.3-8.2 H 4985553827) ALBUMIN (test code = 4.4 g/dL 3.5-5.0 7311250120) ALK PHOS (test code = 650 U/L 34-122 H 7524870884) ALTv (test code = 59 U/L 5-35 H 1742-6) AST(SGOT) (test code = 105 U/L 13-40 H 0998660466) eGFR (test code = mL/min/1.73m2 1537739190) KIM (test code = KIM) Association of [...] tests). Lab Interpretation Abnormal (test code = 47435-4) [facility] MOLECULAR [id number] 15:37:16 Test Item Value Reference Range Interpretation Comments POCT Molecular FluA (test code = Negative Negative 12211-7) POCT Molecular FluB (test code = Negative Negative 78629-2) Lab Interpretation (test code = Normal 42731-0) [facility] MOLECULAR [id number] 15:30:18 Test Item Value Reference Range Interpretation Comments POCT Molecular Strep (test code = Negative Negative 32074-6) Lab Interpretation (test code = Normal 51972-6) [id number] 21:11:35 Test Item Value Reference Interpretation Comments Range TROPONIN I (test 0.002 ng/mL See_Comment [Automated code = 3221417350) message] The system which generated this result [...] biotin. Lab Interpretation Normal (test code = 53366-0) [facility]. METABOLIC PANEL ([id number])2021-04-15 20:54:19 Test Item Value Reference Range Interpretation Comments NA (test code = 137 mmol/L 135-145 3346475740) K (test code = 3.8 mmol/L 3.5-5.0 7924925375) CL (test code = 103 mmol/L 98-108 0725405585) CO2 TOTAL (test code = 26 mmol/L 23-31 8988428626) AGAP (test code = 2-16 7081986088) BUN (test code = 12 mg/dL 7-23 5155432805) GLUCOSE (test code = 111 mg/dL 70-110 H 2464725988) CREATININE (test code = 0.61 mg/dL 0.50-1.04 2919873896) TOTAL BILI (test code = 1.2 mg/dL 0.1-1.1 H 3862472549) CALCIUM (test code = 8.9 mg/dL 8.6-10.6 0219046073) T PROTEIN (test code = 8.1 g/dL 6.3-8.2 6020087258) ALBUMIN (test code = 4.3 g/dL 3.5-5.0 1590726620) ALK PHOS (test code = 693 U/L 34-122 H 7310733051) ALTv (test code = 93 U/L 5-35 H 1742-6) AST(SGOT) (test code = 108 U/L 13-40 H 2150231986) eGFR (test code = mL/min/1.73m2 4832755710) KIM (test code = KIM) Association of [...] tests). Lab Interpretation Abnormal (test code = 65143-5) [facility]54 Test Item Value Reference Range Interpretation Comments LIPASE (test code = 0874061340) 59 U/L 0-220 Lab Interpretation (test code = Normal 06912-9) [facility] [id number] 20:33:32 Test Item Value Reference Range Interpretation Comments WBC (test code = See_Comment [Automated 9360-2) message] The sy stem which generated this result transmitted reference range : 4.30 - 11.10 10*3/?L. The reference range was not used to interpret this result as normal/abnormal . RBC (test code = See_Comment L [Automated 751-3) message] The sy stem which generated this result transmitted reference range : 3.93 - 5.25 10*6/?L. The reference range was not used to interpret this result as normal/abnormal . HGB (test code = 11.3 g/dL 11.6-15.0 L 718-7) HCT (test code = 34.8 % 35.7-45.2 L 4544-3) MCV (test code = 90.6 fL 80.6-95.5 787-2) MCH (test code = 29.4 pg 25.9-32.8 785-6) MCHC (test code = 32.5 g/dL 31.6-35.1 786-4) RDW-SD (test code = 45.8 fL 39.0-49.9 47563-0) RDW-CV (test code = 13.7 % 12.0-15.5 788-0) PLT (test code = See_Comment [Automated 777-3) message] The sy stem which generated this result transmitted reference range : 166 - 358 10*3/ ?L. The reference r luca was not used to interpret this result as normal/abnormal . MPV (test code = 9.5 fL 9.5-12.9 33158-0) NRBC/100 WBC (test See_Comment [Automat ed code = 0767228714) message] The system which generated this result transmitted reference range : 0.0 - 10.0 /100 WBCs. The refer ence range was not u sed to interpret th is result as normal/abnormal . NRBC x10^3 (test code <0.01 See_Comment [Auto mated = 4850205391) message] The s ystem which generated this result transmitted reference range : 10*3/?L. The reference range was not used to interpret this result as normal/abnormal . GRAN MAT (NEUT) % 70.5 % (test code = 770-8) IMM GRAN % (test code 0.70 % = 7570094304) LYMPH % (test code = 20.2 % 736-9) MONO % (test code = 6.7 % 5905-5) EOS % (test code = 1.4 % 713-8) BASO % (test code = 0.5 % 706-2) GRAN MAT x10^3(ANC) 3.07 10*3/uL 1.88-7.09 (test code = 0448295054) IMM GRAN x10^3 (test 0.03 10*3/uL 0.00-0.06 code = 8821901959) LYMPH x10^3 (test code 0.88 10*3/uL 1.32-3.29 L = 731-0) MONO x10^3 (test code 0.29 10*3/uL 0.33-0.92 L = 742-7) EOS x10^3 (test code = 0.06 10*3/uL 0.03-0.39 711-2) BASO x10^3 (test code <0.03 0.01-0.07 = 704-7) Lab Interpretation Abnormal (test code = 13681-7) [facility] [id number] 01:49:11 Test Item Value Reference Interpretation Comments Range TROPONIN I (test 0.002 ng/mL See_Comment [Automated code = 0071490270) message] The system which generated this result [...] biotin. Lab Interpretation Normal (test code = 06896-7) [facility] [id number] 01:46:10 Test Item Value Reference Range Interpretation Comments NT-proBNP (test code 56 pg/mL See_Comment [Autom ated = 8363671993) message] The system which generated this result transmitted reference range : <=125. The reference range was not used to interpret this result as normal/abnormal . KIM (test code = KIM) Biotin has been reported to cause a negative bias, interpret results relative to patient's use of biotin. Lab Interpretation Normal (test code = 64129-9) [facility]OLIC [facility] ([id number])2021-03-26 01:37:29 Test Item Value Reference Range Interpretation Comments NA (test code = 134 mmol/L 135-145 L 0979611050) K (test code = 4.6 mmol/L 3.5-5.0 2478679085) CL (test code = 103 mmol/L 98-108 5380472141) CO2 TOTAL (test code = 21 mmol/L 23-31 L 9154320338) AGAP (test code = 2-16 3052877691) BUN (test code = 21 mg/dL 7-23 9860147976) GLUCOSE (test code = 98 mg/dL 70-110 8972265845) CREATININE (test code = 0.89 mg/dL 0.50-1.04 7712441065) TOTAL BILI (test code = 1.0 mg/dL 0.1-1.8 9364859900) CALCIUM (test code = 9.6 mg/dL 8.6-10.6 7896233274) T PROTEIN (test code = 8.0 g/dL 6.3-8.2 7022864462) ALBUMIN (test code = 4.5 g/dL 3.5-5.0 9498928626) ALK PHOS (test code = 818 U/L 34-122 H 8935465033) ALTv (test code = 201 U/L 5-35 H 1742-6) AST(SGOT) (test code = 174 U/L 13-40 H 3171548484) eGFR (test code = mL/min/1.73m2 2104168039) KIM (test code = KIM) Association of [...] tests). Lab Interpretation Abnormal (test code = 75941-4) [facility] 01:37:09 Test Item Value Reference Range Interpretation Comments LIPASE (test code = 8375584625) 176 U/L 0-220 Lab Interpretation (test code = Normal 37530-8) [facility] WITH [id number] 01:34:08 Test Item Value Reference Range Interpretation [...] RDW-SD (test code = 43.3 fL 39.0-49.9 84315-7) RDW-CV (test code = 13.0 % 12.0-15.5 788-0) PLT (test code = See_Comment [Automated 777-3) message] The sy stem which generated this result transmitted reference range : 166 - 358 10*3/ ?L. The reference r luac was not used to interpret this result as normal/abnormal . MPV (test code = 10.0 fL 9.5-12.9 57606-3) NRBC/100 WBC (test See_Comment [Automat ed code = 8078121238) message] The system which generated this result transmitted reference range : 0.0 - 10.0 /100 WBCs. The refer ence range was not u sed to interpret th is result as normal/abnormal . NRBC x10^3 (test code <0.01 See_Comment [Auto mated = 7343864294) message] The s ystem which generated this result transmitted reference range : 10*3/?L. The reference range was not used to interpret this result as normal/abnormal . GRAN MAT (NEUT) % 71.1 % (test code = 770-8) IMM GRAN % (test code 0.50 % = 9041234017) LYMPH % (test code = 18.8 % 736-9) MONO % (test code = 7.0 % 5905-5) EOS % (test code = 2.3 % 713-8) BASO % (test code = 0.3 % 706-2) GRAN MAT x10^3(ANC) 4.38 10*3/uL 1.88-7.09 (test code = 6665784640) IMM GRAN x10^3 (test 0.03 10*3/uL 0.00-0.06 code = 2692282104) LYMPH x10^3 (test code 1.16 10*3/uL 1.32-3.29 L = 731-0) MONO x10^3 (test code 0.43 10*3/uL 0.33-0.92 = 742-7) EOS x10^3 (test code = 0.14 10*3/uL 0.03-0.39 711-2) BASO x10^3 (test code <0.03 0.01-0.07 = 704-7) Lab Interpretation Abnormal (test code = 24327-3) [facility]. METABOLIC PANEL ([id number])2021-03-21 00:26:35 Test Item Value Reference Range Interpretation Comments NA (test code = 135 mmol/L 135-145 9710494553) K (test code = 4.6 mmol/L 3.5-5.0 3798261585) CL (test code = 104 mmol/L 98-108 9711163191) CO2 TOTAL (test code = 24 mmol/L 23-31 6874094390) AGAP (test code = 2-16 1419217228) BUN (test code = 17 mg/dL 7-23 7294194414) GLUCOSE (test code = 88 mg/dL 70-110 9453039232) CREATININE (test code = 0.70 mg/dL 0.50-1.04 8424442254) TOTAL BILI (test code = 1.0 mg/dL 0.1-1.8 1092727090) CALCIUM (test code = 8.8 mg/dL 8.6-10.6 9611177074) T PROTEIN (test code = 7.2 g/dL 6.3-8.2 6882678586) ALBUMIN (test code = 3.9 g/dL 3.5-5.0 9061625930) ALK PHOS (test code = 844 U/L 34-122 H 1104445983) ALTv (test code = 192 U/L 5-35 H 1742-6) AST(SGOT) (test code = 189 U/L 13-40 H 5176549190) eGFR (test code = mL/min/1.73m2 6017482344) KIM (test code = KIM) Association of [...] tests). Lab Interpretation Abnormal (test code = 85084-7) [facility] [id number] 23:26:58 Test Item Value Reference Interpretation Comments Range TROPONIN I (test 0.026 ng/mL See_Comment [Automated code = 3859921130) message] The system which generated this result [...] biotin. Lab Interpretation Normal (test code = 01308-2) [facility] 23:15:37 Test Item Value Reference Range Interpretation Comments LIPASE (test code = 6967682351) 214 U/L 0-220 Lab Interpretation (test code = Normal 38073-2) [facility] WITH [id number] 22:59:33 Test Item Value Reference Range Interpretation [...] RDW-SD (test code = 43.4 fL 39.0-49.9 39262-9) RDW-CV (test code = 13.0 % 12.0-15.5 788-0) PLT (test code = See_Comment [Automated 777-3) message] The sy stem which generated this result transmitted reference range : 166 - 358 10*3/ ?L. The reference r luca was not used to interpret this result as normal/abnormal . MPV (test code = 10.2 fL 9.5-12.9 81371-4) NRBC/100 WBC (test See_Comment [Automat ed code = 6404522841) message] The system which generated this result transmitted reference range : 0.0 - 10.0 /100 WBCs. The refer ence range was not u sed to interpret th is result as normal/abnormal . NRBC x10^3 (test code <0.01 See_Comment [Auto mated = 3713124113) message] The s ystem which generated this result transmitted reference range : 10*3/?L. The reference range was not used to interpret this result as normal/abnormal . GRAN MAT (NEUT) % 65.8 % (test code = 770-8) IMM GRAN % (test code 0.20 % = 2697776312) LYMPH % (test code = 22.8 % 736-9) MONO % (test code = 7.7 % 5905-5) EOS % (test code = 2.9 % 713-8) BASO % (test code = 0.6 % 706-2) GRAN MAT x10^3(ANC) 3.43 10*3/uL 1.88-7.09 (test code = 5971615609) IMM GRAN x10^3 (test <0.03 0.00-0.06 code = 7864185031) LYMPH x10^3 (test code 1.19 10*3/uL 1.32-3.29 L = 731-0) MONO x10^3 (test code 0.40 10*3/uL 0.33-0.92 = 742-7) EOS x10^3 (test code = 0.15 10*3/uL 0.03-0.39 711-2) BASO x10^3 (test code 0.03 10*3/uL 0.01-0.07 = 704-7) Lab Interpretation Abnormal (test code = 26806-9) [facility] ([id number])2021-02-12 20:12:57 Test Item Value Reference Range Interpretation Comments NA (test code = 137 mmol/L 135-145 2263642607) K (test code = 4.7 mmol/L 3.5-5.0 6640835726) CL (test code = 106 mmol/L 98-108 5158329787) CO2 TOTAL (test code = 23 mmol/L 23-31 9751842556) AGAP (test code = 2-16 5893243966) BUN (test code = 16 mg/dL 7-23 8437367678) GLUCOSE (test code = 116 mg/dL 70-110 H 6215147945) CREATININE (test code = 0.65 mg/dL 0.50-1.04 3122503400) TOTAL BILI (test code = 1.6 mg/dL 0.1-1.1 H 8460608157) CALCIUM (test code = 9.6 mg/dL 8.6-10.6 9972845956) T PROTEIN (test code = 8.3 g/dL 6.3-8.2 H 2954791909) ALBUMIN (test code = 4.5 g/dL 3.5-5.0 5016724550) ALK PHOS (test code = 650 U/L 34-122 H 1401144654) ALTv (test code = 146 U/L 5-35 H 1742-6) AST(SGOT) (test code = 174 U/L 13-40 H 9629338519) eGFR (test code = mL/min/1.73m2 1992659269) KIM (test code = KIM) Association of [...] tests). Lab Interpretation Abnormal (test code = 93642-0) [facility] 20:12:12 Test Item Value Reference Range Interpretation Comments LIPASE (test code = 1918155510) 86 U/L 0-220 Lab Interpretation (test code = Normal 42657-0) [facility] [id number] 20:02:15 Test Item Value Reference Range Interpretation [...] RDW-SD (test code = 46.4 fL 39.0-49.9 94166-9) RDW-CV (test code = 13.8 % 12.0-15.5 788-0) PLT (test code = See_Comment [Automated 777-3) message] The sy stem which generated this result transmitted reference range : 166 - 358 10*3/ ?L. The reference r luca was not used to interpret this result as normal/abnormal . MPV (test code = 9.8 fL 9.5-12.9 31470-5) NRBC/100 WBC (test See_Comment [Automat ed code = 6760103063) message] The system which generated this result transmitted reference range : 0.0 - 10.0 /100 WBCs. The refer ence range was not u sed to interpret th is result as normal/abnormal . NRBC x10^3 (test code <0.01 See_Comment [Auto mated = 0177218488) message] The s ystem which generated this result transmitted reference range : 10*3/?L. The reference range was not used to interpret this result as normal/abnormal . GRAN MAT (NEUT) % 69.4 % (test code = 770-8) IMM GRAN % (test code 0.40 % = 4055421809) LYMPH % (test code = 20.4 % 736-9) MONO % (test code = 7.2 % 5905-5) EOS % (test code = 2.0 % 713-8) BASO % (test code = 0.6 % 706-2) GRAN MAT x10^3(ANC) 3.77 10*3/uL 1.88-7.09 (test code = 4700957853) IMM GRAN x10^3 (test <0.03 0.00-0.06 code = 7528887056) LYMPH x10^3 (test code 1.11 10*3/uL 1.32-3.29 L = 731-0) MONO x10^3 (test code 0.39 10*3/uL 0.33-0.92 = 742-7) EOS x10^3 (test code = 0.11 10*3/uL 0.03-0.39 711-2) BASO x10^3 (test code 0.03 10*3/uL 0.01-0.07 = 704-7) Lab Interpretation Abnormal (test code = 88397-4) [facility]. METABOLIC PANEL ([id number])2021-01-18 04:36:17 Test Item Value Reference Range Interpretation Comments NA (test code = 137 mmol/L 135-145 6497077066) K (test code = 4.2 mmol/L 3.5-5.0 0426086146) CL (test code = 103 mmol/L 98-108 0092201630) CO2 TOTAL (test code = 27 mmol/L 23-31 7574565565) AGAP (test code = 2-16 8726163798) BUN (test code = 13 mg/dL 7-23 3526895243) GLUCOSE (test code = 100 mg/dL 70-110 6271976554) CREATININE (test code = 0.73 mg/dL 0.50-1.04 1774646371) TOTAL BILI (test code = 1.4 mg/dL 0.1-1.1 H 4972765241) CALCIUM (test code = 9.1 mg/dL 8.6-10.6 2189633918) T PROTEIN (test code = 7.2 g/dL 6.3-8.2 4187057025) ALBUMIN (test code = 4.0 g/dL 3.5-5.0 1076563717) ALK PHOS (test code = 585 U/L 34-122 H 0635070216) ALTv (test code = 78 U/L 5-35 H 2-6) AST(SGOT) (test code = 73 U/L 13-40 H 8460209929) eGFR (test code = mL/min/1.73m2 4308659360) KIM (test code = KIM) Association of [...] tests). Lab Interpretation Abnormal (test code = 20453-0) [facility] 04:02:39 Test Item Value Reference Range Interpretation Comments LIPASE (test code = 0427142057) 114 U/L 0-220 Lab Interpretation (test code = Normal 10544-5) [facility] [id number] 03:49:11 Test Item Value Reference Range Interpretation [...] (test code = 50.6 fL 39.0-49.9 H 30597-3) RDW-CV (test code = 14.8 % 12.0-15.5 788-0) PLT (test code = See_Comment [Automated 777-3) message] The sy stem which generated this result transmitted reference range : 166 - 358 10*3/ ?L. The reference r luca was not used to interpret this result as normal/abnormal . MPV (test code = 10.7 fL 9.5-12.9 20118-6) NRBC/100 WBC (test See_Comment [Automat ed code = 4723665227) message] The system which generated this result transmitted reference range : 0.0 - 10.0 /100 WBCs. The refer ence range was not u sed to interpret th is result as normal/abnormal . NRBC x10^3 (test code <0.01 See_Comment [Auto mated = 7814191270) message] The s ystem which generated this result transmitted reference range : 10*3/?L. The reference range was not used to interpret this result as normal/abnormal . GRAN MAT (NEUT) % 66.1 % (test code = 770-8) IMM GRAN % (test code 0.20 % = 9581725581) LYMPH % (test code = 23.5 % 736-9) MONO % (test code = 8.1 % 5905-5) EOS % (test code = 1.7 % 713-8) BASO % (test code = 0.4 % 706-2) GRAN MAT x10^3(ANC) 3.49 10*3/uL 1.88-7.09 (test code = 0406757979) IMM GRAN x10^3 (test <0.03 0.00-0.06 code = 3539276385) LYMPH x10^3 (test code 1.24 10*3/uL 1.32-3.29 L = 731-0) MONO x10^3 (test code 0.43 10*3/uL 0.33-0.92 = 742-7) EOS x10^3 (test code = 0.09 10*3/uL 0.03-0.39 711-2) BASO x10^3 (test code <0.03 0.01-0.07 = 704-7) Lab Interpretation Abnormal (test code = 40988-3) [facility] ([id number][facility] (ALB,T.PRO,BILI T,BU/BC,ALT,AST,ALK PHOS)2020-12-30 18:48:24 Test Item Value Reference Range Interpretation Comments TOTAL BILI (test code = 2382404895) 2.4 mg/dL 0.1-1.1 H BILI UNCON (test code = 5516784156) 0.5 mg/dL 0.1-1.1 BILI CONJ (test code = 6490251565) 0.0 mg/dL 0.0-0.3 T PROTEIN (test code = 3599870801) 9.8 g/dL 6.3-8.2 H ALBUMIN (test code = 0913235575) 4.9 g/dL 3.5-5.0 ALK PHOS (test code = 0091359414) 1181 U/L 34-122 H ALTv (test code = 1742-6) 271 U/L 5-35 H AST(SGOT) (test code = 4215842282) 192 U/L 13-40 H Lab Interpretation (test code = Abnormal 44733-7) [facility] (70035[facility] (ALB,T.PRO,BILI T,BU/BC,ALT,AST,ALK PHOS)2020-12-30 18:48:24 Test Item Value Reference Range Interpretation Comments TOTAL BILI (test code = 4562361412) 2.4 mg/dL 0.1-1.1 H BILI UNCON (test code = 9487028824) 0.5 mg/dL 0.1-1.1 BILI CONJ (test code = 8973688612) 0.0 mg/dL 0.0-0.3 T PROTEIN (test code = 2466429030) 9.8 g/dL 6.3-8.2 H ALBUMIN (test code = 2938317403) 4.9 g/dL 3.5-5.0 ALK PHOS (test code = 7917325178) 1181 U/L 34-122 H ALTv (test code = 1742-6) 271 U/L 5-35 H AST(SGOT) (test code = 2895081383) 192 U/L 13-40 H Lab Interpretation (test code = Abnormal 05458-7) [facility] (NA, K, CL, CO2, GLUCOSE, BUN, CREATININE, CA)2020-12-30 18:48:02 Test Item Value Reference Range Interpretation Comments NA (test code = 138 mmol/L 135-145 4182935539) K (test code = 4.7 mmol/L 3.5-5.0 0037377721) CL (test code = 106 mmol/L 98-108 2492928163) CO2 TOTAL (test code = 20 mmol/L 23-31 L 0207136045) AGAP (test code = 2-16 9905204733) BUN (test code = 19 mg/dL 7-23 2730950605) GLUCOSE (test code = 134 mg/dL 70-110 H 5562874172) CREATININE (test code = 0.62 mg/dL 0.50-1.04 1559081711) CALCIUM (test code = 10.1 mg/dL 8.6-10.6 0722073104) eGFR (test code = mL/min/1.73m2 4583557910) KIM (test code = KIM) Association of [...] tests). Lab Interpretation Abnormal (test code = 11802-4) [facility] 18:48:02 Test Item Value Reference Range Interpretation Comments LIPASE (test code = 6753216237) 292 U/L 0-220 H Lab Interpretation (test code = Abnormal 46522-8) [facility] (NA, K, CL, CO2, GLUCOSE, BUN, CREATININE, CA)2020-12-30 18:48:02 Test Item Value Reference Range Interpretation Comments NA (test code = 138 mmol/L 135-145 8692993340) K (test code = 4.7 mmol/L 3.5-5.0 4536948592) CL (test code = 106 mmol/L 98-108 9767281439) CO2 TOTAL (test code = 20 mmol/L 23-31 L 0474994831) AGAP (test code = 2-16 5639980819) BUN (test code = 19 mg/dL 7-23 5447719442) GLUCOSE (test code = 134 mg/dL 70-110 H 8585679778) CREATININE (test code = 0.62 mg/dL 0.50-1.04 4060367062) CALCIUM (test code = 10.1 mg/dL 8.6-10.6 4661340110) eGFR (test code = mL/min/1.73m2 1248000616) KIM (test code = KIM) Association of [...] tests). Lab Interpretation Abnormal (test code = 22429-6) [facility] 18[facility] Test Item Value Reference Range Interpretation Comments LIPASE (test code = 2378334934) 292 U/L 0-220 H Lab Interpretation (test code = Abnormal 38400-2) [facility] [id number] 18:39:23 Test Item Value Reference Range Interpretation [...] RDW-SD (test code = 48.4 fL 39.0-49.9 12150-4) RDW-CV (test code = 14.6 % 12.0-15.5 788-0) PLT (test code = See_Comment [Automated 777-3) message] The sy stem which generated this result transmitted reference range : 166 - 358 10*3/ ?L. The reference r luca was not used to interpret this result as normal/abnormal . MPV (test code = 10.1 fL 9.5-12.9 02390-1) NRBC/100 WBC (test See_Comment [Automat ed code = [id number]) message] The system which generated this result transmitted reference range : 0.0 - 10.0 /100 WBCs. The refer ence range was not u sed to interpret th is result as normal/abnormal . NRBC x10^3 (test code <0.01 See_Comment [Auto mated = [id number]) message] The s ystem which generated this result transmitted reference range : 10*3/?L. The reference range was not used to interpret this result as normal/abnormal . GRAN MAT (NEUT) % 75.2 % (test code = 770-8) IMM GRAN % (test code 0.60 % = 8338410655) LYMPH % (test code = 17.0 % 736-9) MONO % (test code = 5.8 % 5905-5) EOS % (test code = 0.9 % 713-8) BASO % (test code = 0.5 % 706-2) GRAN MAT x10^3(ANC) 8.11 10*3/uL 1.88-7.09 H (test code = 1325309473) IMM GRAN x10^3 (test 0.06 10*3/uL 0.00-0.06 code = 3233518870) LYMPH x10^3 (test code 1.83 10*3/uL 1.32-3.29 = 731-0) MONO x10^3 (test code 0.62 10*3/uL 0.33-0.92 = 742-7) EOS x10^3 (test code = 0.10 10*3/uL 0.03-0.39 711-2) BASO x10^3 (test code 0.05 10*3/uL 0.01-0.07 = 704-7) Lab Interpretation Abnormal (test code = 81808-7) [facility] WITH [id number] 18:39:23 Test Item Value Reference Range Interpretation Comments WBC (test code = See_Comment [Automated 1690-2) message] The sy stem which generated this result transmitted reference range : 4.30 - 11.10 10*3/?L. The reference range was not used to interpret this result as normal/abnormal . RBC (test code = See_Comment [Automated 809-8) message] The sy stem which generated this [...] RDW-SD (test code = 48.4 fL 39.0-49.9 17603-6) RDW-CV (test code = 14.6 % 12.0-15.5 788-0) PLT (test code = See_Comment [Automated 777-3) message] The sy stem which generated this result transmitted reference range : 166 - 358 10*3/ ?L. The reference r luca was not used to interpret this result as normal/abnormal . MPV (test code = 10.1 fL 9.5-12.9 14152-9) NRBC/100 WBC (test See_Comment [Automat ed code = 4279103918) message] The system which generated this result transmitted reference range : 0.0 - 10.0 /100 WBCs. The refer ence range was not u sed to interpret th is result as normal/abnormal . NRBC x10^3 (test code <0.01 See_Comment [Auto mated = 4774029217) message] The s ystem which generated this result transmitted reference range : 10*3/?L. The reference range was not used to interpret this result as normal/abnormal . GRAN MAT (NEUT) % 75.2 % (test code = 770-8) IMM GRAN % (test code 0.60 % = 7275031425) LYMPH % (test code = 17.0 % 736-9) MONO % (test code = 5.8 % 5905-5) EOS % (test code = 0.9 % 713-8) BASO % (test code = 0.5 % 706-2) GRAN MAT x10^3(ANC) 8.11 10*3/uL 1.88-7.09 H (test code = 9146190108) IMM GRAN x10^3 (test 0.06 10*3/uL 0.00-0.06 code = 6421301974) LYMPH x10^3 (test code 1.83 10*3/uL 1.32-3.29 = 731-0) MONO x10^3 (test code 0.62 10*3/uL 0.33-0.92 = 742-7) EOS x10^3 (test code = 0.10 10*3/uL 0.03-0.39 711-2) BASO x10^3 (test code 0.05 10*3/uL 0.01-0.07 = 704-7) Lab Interpretation Abnormal (test code = 11334-5) [facility] PELVIS COMPLETE WITH [id number] 23:13:25Focal echogenicity in the left ovary measuring [...] Otherwise unremarkable pelvic ultrasound.RL: [id number] OF REPORT [facility]St[facility] CenterLactic Acid Whole Gfmxo0088-15-29 22:23:55 Test Item Value Reference Range Interpretation Comments LACTIC ACID (test code = 1.49 mmol/L 0.50-2.20 4454800319) Lab Interpretation (test code = Normal 89078-9) [facility] [id number] 22:20:59 1. ?No acute intra-abdominal abnormality. 2. ?Gastric wall thickening is nonspecific but can be seen with gastritis. 3. ?Postsurgical changes of cholecystectomy and appendectomy. Pneumobiliaversus nonradiopaque biliary stents are unchanged dating back to 2016. 4. ?Hepatic steatosis and splenomegaly. The 0.9 cm cystic hypodensity atthe uncinate process is slightly smaller from 03/26/2020. This wasevaluated [facility] on 09/08[facility]2020, with resultssuggestive [...] stentsare unchanged dating back to at least 2015.SPLEEN: The spleen is mildly enlarged and measures [...] biliary stents are unchanged dating back to 2015.4. Hepatic steatosis and splenomegaly. The 0.9 cm cystic hypodensity atthe uncinate process is slightly smaller from 03/26/2020. This wasevaluated by MR abdomen at [facility] on 09/08/2020, with resultssuggestive of pseudocyst versus side branch IPMN.Preliminary Report Dictated by Resident: Chester Rivera, Dwight Akers MD., have reviewed this study andagree with the abovereport.[facility]IS2021-08-23 20:42:19 Test Item Value Reference Range Interpretation Comments APPEARANCE (test code = Clear Clear 7281282413) COLOR (test code = Romelia Yellow A 5707904920) PH (test code = 4.8-8.0 5495464739) SP GRAVITY (test code = 1.003-1.030 5601123551) GLU U QUAL (test code = Normal Normal 2706891571) BLOOD (test code = Negative Negative 4844230778) KETONES (test code = Negative Negative 8044746995) PROTEIN (test code = 30 mg/dL Negative A 2887-8) UROBILIN (test code = 4.0 mg/dL Normal A 1807733474) BILIRUBIN (test code = 2 mg/dL Negative A 5527527858) NITRITE (test code = Negative Negative 5240263229) LEUK NICHOLE (test code = Negative Negative 4944527484) RBC/HPF (test code = See_Comment [Autom ated message] 6436279747) The system [employer] generated this result transmit gulshan reference range : 0 - 3 HPF. The refe rence range was not u sed to interpret th is result as normal/abnormal . WBC/HPF (test code = See_Comment [Autom ated message] 4827018135) The system [employer] generated this result transmit gulshan reference range : 0 - 5 HPF. The refe rence range was not u sed to interpret th is result as normal/abnormal . BACTERIA (test code = Few Negative A 9432222944) MUCOUS (test code = Slight Negative LPF A 6111490738) SQ EPITH (test code = HPF 0160755172) HYAL CAST (test code = See_Comment [Aut omated message] 1094228154) The system [employer] generated this result transmit gulshan reference range : <=2 LPF. The refere nce range was not u sed to interpret th is result as normal/abnormal . Lab Interpretation (test Abnormal code = 88956-1) [facility]COMP. METABOLIC PANEL (07051)2020-12-05 20:38:13 Test Item Value Reference Range Interpretation Comments NA (test code = 139 mmol/L 135-145 7525120526) K (test code = 3.6 mmol/L 3.5-5.0 5767420257) CL (test code = 106 mmol/L 98-108 4340811976) CO2 TOTAL (test code = 21 mmol/L 23-31 L 0862135089) AGAP (test code = 2-16 9931670125) BUN (test code = 12 mg/dL 7-23 0403278182) GLUCOSE (test code = 91 mg/dL 70-110 2481399190) CREATININE (test code = 0.53 mg/dL 0.50-1.04 0360728006) TOTAL BILI (test code = 3.6 mg/dL 0.1-1.1 H 0544689149) CALCIUM (test code = 9.8 mg/dL 8.6-10.6 2219327368) T PROTEIN (test code = 9.1 g/dL 6.3-8.2 H 5199433386) ALBUMIN (test code = 4.6 g/dL 3.5-5.0 7264889891) ALK PHOS (test code = 1229 U/L 34-122 H 4301690558) ALTv (test code = 311 U/L 5-35 H 1742-6) AST(SGOT) (test code = 280 U/L 13-40 H 3927932968) eGFR (test code = mL/min/1.73m2 3803124298) KIM (test code = KIM) Association of [...] tests). Lab Interpretation Abnormal (test code = 78178-4) [facility]2021-08-23 20:37:32 Test Item Value Reference Range Interpretation Comments LIPASE (test code = 7351158118) 168 U/L 0-220 Lab Interpretation (test code = Normal 23576-7) [facility] HospitalCB WITH [id number] 20:25:55 Test Item Value Reference Range Interpretation [...] RDW-SD (test code = 49.3 fL 39.0-49.9 24510-1) RDW-CV (test code = 15.0 % 12.0-15.5 788-0) PLT (test code = See_Comment [Automated 777-3) message] The sy stem which generated this result transmitted reference range : 166 - 358 10*3/ ?L. The reference r luca was not used to interpret this result as normal/abnormal . MPV (test code = 10.2 fL 9.5-12.9 60741-2) NRBC/100 WBC (test See_Comment [Automat ed code = 9939807943) message] The system which generated this result transmitted reference range : 0.0 - 10.0 /100 WBCs. The refer ence range was not u sed to interpret th is result as normal/abnormal . NRBC x10^3 (test code <0.01 See_Comment [Auto mated = 8252736550) message] The s ystem which generated this result transmitted reference range : 10*3/?L. The reference range was not used to interpret this result as normal/abnormal . GRAN MAT (NEUT) % 68.6 % (test code = 770-8) IMM GRAN % (test code 0.40 % = 0413212224) LYMPH % (test code = 21.2 % 736-9) MONO % (test code = 7.8 % 5905-5) EOS % (test code = 1.6 % 713-8) BASO % (test code = 0.4 % 706-2) GRAN MAT x10^3(ANC) 3.50 10*3/uL 1.88-7.09 (test code = 8181921164) IMM GRAN x10^3 (test <0.03 0.00-0.06 code = 6529840303) LYMPH x10^3 (test code 1.08 10*3/uL 1.32-3.29 L = 731-0) MONO x10^3 (test code 0.40 10*3/uL 0.33-0.92 = 742-7) EOS x10^3 (test code = 0.08 10*3/uL 0.03-0.39 711-2) BASO x10^3 (test code <0.03 0.01-0.07 = 704-7) Lab Interpretation Abnormal (test code = 50819-8) [facility] HospitalLIPID PANEL (30145)(TOTAL CHOLESTEROL, TRIGLYCERIDES, HDL)2020-10-12 16:46:34 Test Item Value Reference Range Interpretation Comments CHOL (test code = 307 mg/dL 120-200 H 4251088907) HDL (test code = 93 mg/dL >50 0432223506) HDLC RATIO (test code = See_Comment [Au tomated message] 1425485855) The system [employer] generated this result transmit gulshan reference range : <=4.5. The refe rence range was not u sed to interpret th is result as normal/abnormal . TRIG (test code = 131 mg/dL 30-170 8422034953) LDL CHOL (test code = 188 mg/dL See_Comment H [Auto mated message] 11010-9) The system [employer] generated this result transmit gulshan reference range : <=160. The refe rence range was not u sed to interpret th is result as normal/abnormal . VLDL (test code = 26 mg/dL 5-60 9679356697) Lab Interpretation (test Abnormal code = 09815-8) [facility] HospitalMagnesium Jukzv0634-20-97 09:02:26 Test Item Value Reference Range Interpretation Comments MAGNESIUM (test code = 4386052586) 1.9 mg/dL 1.7-2.4 Lab Interpretation (test code = Normal 24346-6) [facility] HospitalHEPATIC FUNCTION PANEL (62144) (ALB,T.PRO,BILI T,BU/BC,ALT,AST,ALK PHOS)2020-10-12 09:02:26 Test Item Value Reference Range Interpretation Comments TOTAL BILI (test code = 9919256475) 1.0 mg/dL 0.1-1.1 BILI UNCON (test code = 5938073519) 0.5 mg/dL 0.1-1.1 BILI CONJ (test code = 3303727484) 0.0 mg/dL 0.0-0.3 T PROTEIN (test code = 3885183526) 7.8 g/dL 6.3-8.2 ALBUMIN (test code = 3045754282) 4.3 g/dL 3.5-5.0 ALK PHOS (test code = 4504114171) 608 U/L 34-122 H ALTv (test code = 1742-6) 156 U/L 5-35 H AST(SGOT) (test code = 2444900707) 136 U/L 13-40 H Lab Interpretation (test code = Abnormal 84786-5) [facility] HospitalProthrombin Time / [id number] 08:48:50 Test Item Value Reference Range Interpretation Comments PROTIME PATIENT (test See_Comment [Auto mated message] code = 5964-2) The system ich generated this result transmitted ref erence range: 10.1 - 1 2.6 Seconds. The re ference range was not u sed to interpret this result as normal/abnor mal. INR (test code = 6301-6) Nor mal INR <1.1; Warfarin Therap eutic range 2.0 to 3. 0 or 2.5 to 3.5, dep ending upon the indica tions. Lab Interpretation (test Normal code = 66624-5) [facility] HospitalaPTT2021-06-30 08:48:50 Test Item Value Reference Range Interpretation Comments APTT Patient (test code See_Comment H [Au tomated message] = 3173-2) The system ic h generated this result transmitted ref erence range: 26 - 36 Seconds. The reference range was not used to int erpret this result as normal/abnormal . Lab Interpretation (test Abnormal code = 10110-3) [facility]CB with Ixdwzjnlmbje3439-21-32 08:31:22 Test Item Value Reference Range Interpretation Comments WBC (test code = See_Comment [Automated 7290-2) message] The sy stem which generated this result transmitted reference range : 4.30 - 11.10 10*3/?L. The reference range was not used to interpret this result as normal/abnormal . RBC (test code = See_Comment L [Automated 649-8) message] The sy stem which generated this [...] RDW-SD (test code = 41.3 fL 39.0-49.9 90464-2) RDW-CV (test code = 12.6 % 12.0-15.5 788-0) PLT (test code = See_Comment [Automated 777-3) message] The sy stem which generated this result transmitted reference range : 166 - 358 10*3/ ?L. The reference r luca was not used to interpret this result as normal/abnormal . MPV (test code = 9.1 fL 9.5-12.9 L 15834-3) NRBC/100 WBC (test See_Comment [Automat ed code = 5011424567) message] The system which generated this result transmitted reference range : 0.0 - 10.0 /100 WBCs. The refer ence range was not u sed to interpret th is result as normal/abnormal . NRBC x10^3 (test code <0.01 See_Comment [Auto mated = 9777455045) message] The s ystem which generated this result transmitted reference range : 10*3/?L. The reference range was not used to interpret this result as normal/abnormal . GRAN MAT (NEUT) % 62.6 % (test code = 770-8) IMM GRAN % (test code 0.40 % = 2435660294) LYMPH % (test code = 26.8 % 736-9) MONO % (test code = 7.7 % 5905-5) EOS % (test code = 2.1 % 713-8) BASO % (test code = 0.4 % 706-2) GRAN MAT x10^3(ANC) 3.32 10*3/uL 1.88-7.09 (test code = 1774948954) IMM GRAN x10^3 (test <0.03 0.00-0.06 code = 1590377620) LYMPH x10^3 (test code 1.42 10*3/uL 1.32-3.29 = 731-0) MONO x10^3 (test code 0.41 10*3/uL 0.33-0.92 = 742-7) EOS x10^3 (test code = 0.11 10*3/uL 0.03-0.39 711-2) BASO x10^3 (test code <0.03 0.01-0.07 = 704-7) Lab Interpretation Abnormal (test code = 45825-6) [facility] METABOLIC PANEL (NA, K, CL, CO2, GLUCOSE, BUN, CREATININE, CA)2020-10-12 04:16:15 Test Item Value Reference Range Interpretation Comments NA (test code = 138 mmol/L 135-145 7144134900) K (test code = 4.1 mmol/L 3.5-5.0 9311807049) CL (test code = 104 mmol/L 98-108 6979838613) CO2 TOTAL (test code 23 mmol/L 23-31 = 6312178105) AGAP (test code = 2-16 5979456160) BUN (test code = 16 mg/dL 7-23 8294100995) GLUCOSE (test code = 83 mg/dL 70-110 3930369256) CREATININE (test code 0.63 mg/dL 0.50-1.04 = 7070689757) CALCIUM (test code = 9.4 mg/dL 8.6-10.6 7913292544) eGFR (test code = mL/min/1.73m2 0703021761) KIM (test code = KIM) Association of [...] or urine or abnormalities in imaging tests). [facility] HospitalHEPATIC FUNCTION PANEL (76875) (ALB,T.PRO,BILI T,BU/BC,ALT,AST,ALK PHOS)2020-10-12 04:16:15 Test Item Value Reference Range Interpretation Comments TOTAL BILI (test code = 4632878657) 1.1 mg/dL 0.1-1.1 BILI UNCON (test code = 3851310602) 0.5 mg/dL 0.1-1.1 BILI CONJ (test code = 3569616593) 0.0 mg/dL 0.0-0.3 T PROTEIN (test code = 8756116865) 8.5 g/dL 6.3-8.2 H ALBUMIN (test code = 8048484691) 4.6 g/dL 3.5-5.0 ALK PHOS (test code = 2647105523) 679 U/L 34-122 H ALTv (test code = 1742-6) 168 U/L 5-35 H AST(SGOT) (test code = 0946268480) 143 U/L 13-40 H Lab Interpretation (test code = Abnormal 93915-0) [facility] HospitalCOVID-19 (ID NOW RAPID TESTING)2020-10-11 16:36:41 Test Item Value Reference Range Interpretation Comments SARS-CoV-2 Rapid ID NOW Not Detected Not Detected (test code = 47294-6) KIM (test code = KIM) ID NOW COVID-19 Assay is an isothermal nucleic acid amplification test intended for the qualitative detection of nucleic acid from SARS-CoV-2 viral RNA in nasopharyngeal (FOUNDER AND CHIEF TECHNICAL OFFICER) specimens. It is used under Emergency Use [...] indicated. Lab Interpretation Normal (test code = 25230-4) [facility] GALL [id number] 15:28:53HISTORY: Rule out biliary duct stenosis. COMPARISON: [...] ductstenosis cannot be adequately evaluated by this study.[facility], Radiant Results Inft User - 10/11/2020 10:30 [...] ductstenosis cannot be adequately evaluated by this study.[facility] [id number] 14:35:05 Test Item Value Reference Interpretation Comments Range TROPONIN I (test 0.004 ng/mL See_Comment [Automated code = 1294838994) message] The system which generated this result [...] biotin. Lab Interpretation Normal (test code = 04573-9) [facility] HospitalHepatic Function Panel (ALB, T.PRO, BILI T, BU/BC, ALT, AST, ALK PHOS)2020-10-11 14:24:25 Test Item Value Reference Range Interpretation Comments TOTAL BILI (test code = 0026891386) 0.9 mg/dL 0.1-1.1 BILI UNCON (test code = 1722635837) 0.3 mg/dL 0.1-1.1 BILI CONJ (test code = 9992698329) 0.0 mg/dL 0.0-0.3 T PROTEIN (test code = 5607393403) 9.0 g/dL 6.3-8.2 H ALBUMIN (test code = 8736895865) 4.8 g/dL 3.5-5.0 ALK PHOS (test code = 9575518169) 752 U/L 34-122 H ALTv (test code = 1742-6) 164 U/L 5-35 H AST(SGOT) (test code = 3188593588) 166 U/L 13-40 H Lab Interpretation (test code = Abnormal 65030-8) [facility] HospitalBasi Metabolic Panel (NA, K, CL, CO2, GLUCOSE, BUN, CREATININE, CA)2020-10-11 14:24:05 Test Item Value Reference Range Interpretation Comments NA (test code = 139 mmol/L 135-145 9976126181) K (test code = 4.3 mmol/L 3.5-5.0 1636365465) CL (test code = 106 mmol/L 98-108 1859661471) CO2 TOTAL (test code = 22 mmol/L 23-31 L 7917310586) AGAP (test code = 2-16 2407859178) BUN (test code = 15 mg/dL 7-23 6118840356) GLUCOSE (test code = 106 mg/dL 70-110 5286031644) CREATININE (test code = 0.63 mg/dL 0.50-1.04 8007832027) CALCIUM (test code = 10.0 mg/dL 8.6-10.6 7465651938) eGFR (test code = mL/min/1.73m2 5925968301) KIM (test code = KIM) Association of [...] tests). Lab Interpretation Abnormal (test code = 26086-3) [facility] HospitalLipase Dymby8077-89-43 14:24:05 Test Item Value Reference Range Interpretation Comments LIPASE (test code = 7517472718) 169 U/L 0-220 Lab Interpretation (test code = Normal 47697-3) [facility] HospitalUrinalysis2021-06-29 14:23:55 Test Item Value Reference Range Interpretation Comments APPEARANCE (test code = Hazy Clear A 4670494569) COLOR (test code = Yellow Yellow 5795774019) PH (test code = 4.8-8.0 7102226663) SP GRAVITY (test code = 1.003-1.030 8730791060) GLU U QUAL (test code = Normal Normal 7048758852) BLOOD (test code = Negative Negative 4423481919) KETONES (test code = Negative Negative 4768389982) PROTEIN (test code = Negative Negative 2887-8) UROBILIN (test code = Normal Normal 6931521546) BILIRUBIN (test code = Negative Negative 5046875959) NITRITE (test code = Negative Negative 3813601785) LEUK NICHOLE (test code = Negative Negative 2369922458) RBC/HPF (test code = See_Comment [Autom ated message] 0849166008) The system [employer] generated this result transmitted ref erence range: 0 - 3 HP F. The reference range was not used to int erpret this result as normal/abnormal . WBC/HPF (test code = See_Comment [Autom ated message] 1947164979) The system [employer] generated this result transmitted ref erence range: 0 - 5 HP F. The reference range was not used to int erpret this result as normal/abnormal . BACTERIA (test code = Few Negative A 0217301798) AMORPHOUS (test code = Rare Rare HPF 5090520766) SQ EPITH (test code = HPF 0294424629) HYAL CAST (test code = See_Comment H [Aut omated message] 1108300512) The system [employer] generated this result transmitted ref erence range: <=2 LPF. The reference range was not used to int erpret this result as normal/abnormal . Lab Interpretation (test Abnormal code = 21601-7) [facility] with Wgmsgpxpfqra8209-38-78 14:14:01 Test Item Value Reference Range Interpretation Comments WBC (test code = See_Comment [Automated message] 6690-2) The system [employer] generated this result transmitted ref erence range: 4.30 - 1 1.10 10*3/?L. The re ference range was not u sed to interpret this result as normal/abnor mal. RBC (test code = See_Comment [Automated message] 789-8) The system [employer] generated this result transmitted ref erence range: [...] RDW-SD (test code 40.1 fL 39.0-49.9 = 80178-9) RDW-CV (test code 12.3 % 12.0-15.5 = 788-0) PLT (test code = See_Comment [Automated message] 777-3) The system [employer] generated this result transmitted ref erence range: 166 - 35 8 10*3/?L. The re ference range was not u sed to interpret this result as normal/abnor mal. MPV (test code = 9.7 fL 9.5-12.9 53641-3) NRBC/100 WBC (test See_Comment [Automat ed message] code = 8103675303) The syste [employer] which generated this result transmitted ref erence range: 0.0 - 10 .0 /100 WBCs. The refer ence range was not u sed to interpret this result as normal/abnor mal. NRBC x10^3 (test <0.01 See_Comment [Automated message] code = 3429564762) The syste m which generated this result transmitted ref erence range: 10*3/?L. The reference range was not used to interpr et this result as normal/abnormal . GRAN MAT (NEUT) % 63.7 % (test code = 770-8) IMM GRAN % (test 0.40 % code = 4657602524) LYMPH % (test code 26.2 % = 736-9) MONO % (test code 7.6 % = 5905-5) EOS % (test code = 1.7 % 713-8) BASO % (test code 0.4 % = 706-2) GRAN MAT 3.45 10*3/uL 1.88-7.09 x10^3(ANC) (test code = 1872944427) IMM GRAN x10^3 <0.03 0.00-0.06 (test code = 9726439086) LYMPH x10^3 (test 1.42 10*3/uL 1.32-3.29 code = 731-0) MONO x10^3 (test 0.41 10*3/uL 0.33-0.92 code = 742-7) EOS x10^3 (test 0.09 10*3/uL 0.03-0.39 code = 711-2) BASO x10^3 (test <0.03 0.01-0.07 code = 704-7) [facility] (99520[facility]2020-10-04 23:43:59 Test Item Value Reference Range Interpretation Comments NA (test code = 138 mmol/L 135-145 7626958705) K (test code = 4.1 mmol/L 3.5-5.0 6439920089) CL (test code = 105 mmol/L 98-108 4148141703) CO2 TOTAL (test code = 26 mmol/L 23-31 7416172661) AGAP (test code = 2-16 8817462385) BUN (test code = 12 mg/dL 7-23 5931974359) GLUCOSE (test code = 124 mg/dL 70-110 H 9386799484) CREATININE (test code = 0.51 mg/dL 0.50-1.04 4250586897) TOTAL BILI (test code = 1.0 mg/dL 0.1-1.4 8976931652) CALCIUM (test code = 9.3 mg/dL 8.6-10.6 7078318562) T PROTEIN (test code = 7.9 g/dL 6.3-8.2 7208154162) ALBUMIN (test code = 4.1 g/dL 3.5-5.0 5697845294) ALK PHOS (test code = 619 U/L 34-122 H 6792664997) ALTv (test code = 99 U/L 5-35 H 1742-6) AST(SGOT) (test code = 97 U/L 13-40 H 0703479489) eGFR (test code = mL/min/1.73m2 9306180995) KIM (test code = KIM) Association of [...] tests). Lab Interpretation Abnormal (test code = 77108-7) [facility]LIPASE2021-06-[facility] 23:43:38 Test Item Value Reference Range Interpretation Comments LIPASE (test code = 0724654989) 182 U/L 0-220 Lab Interpretation (test code = Normal 10117-9) [facility] HospitalCOVID-19 (ID NOW RAPID TESTING)2020-10-04 23:39:59 Test Item Value Reference Range Interpretation Comments SARS-CoV-2 Rapid ID NOW Not Detected Not Detected (test code = 72176-6) KIM (test code = KIM) ID NOW COVID-19 Assay is an isothermal nucleic acid amplification test intended for the qualitative detection of nucleic acid from SARS-CoV-2 viral RNA in nasopharyngeal (FOUNDER AND CHIEF TECHNICAL OFFICER) specimens. It is used under Emergency Use [...] indicated. Lab Interpretation Normal (test code = 68419-7) [facility] HospitalURINALYSIS2021-06-22 23:36:26 Test Item Value Reference Range Interpretation Comments APPEARANCE (test code = Clear Clear 4104747841) COLOR (test code = Romelia Yellow A 0057231443) PH (test code = 4.8-8.0 0492042565) SP GRAVITY (test code = 1.003-1.030 1773481417) GLU U QUAL (test code = Normal Normal 9605007739) BLOOD (test code = Negative Negative 6097852717) KETONES (test code = Negative Negative 0644818267) PROTEIN (test code = Negative Negative 2887-8) UROBILIN (test code = 4.0 mg/dL Normal A 7293029201) BILIRUBIN (test code = Negative Negative 8635621322) NITRITE (test code = Negative Negative 6090208493) LEUK NICHOLE (test code = Negative Negative 7184296233) RBC/HPF (test code = See_Comment [Autom ated message] 9680300908) The system whic h generated this result transmit gulshan reference range : 0 - 3 HPF. The refe rence range was not u sed to interpret th is result as normal/abnormal . WBC/HPF (test code = <1 See_Comment [Autom ated message] 6889291349) The system [employer] h generated this result transmit gulshan reference range : 0 - 5 HPF. The refe rence range was not u sed to interpret th is result as normal/abnormal . BACTERIA (test code = Few Negative A 4499584764) MUCOUS (test code = Slight Negative LPF A 7819619357) SQ EPITH (test code = HPF 5594481468) Lab Interpretation (test Abnormal code = 56305-5) [facility] WITH [id number] 23:29:18 Test Item Value Reference Range Interpretation [...] RDW-SD (test code = 40.5 fL 39.0-49.9 63335-6) RDW-CV (test code = 12.2 % 12.0-15.5 788-0) PLT (test code = See_Comment [Automated 777-3) message] The sy stem which generated this result transmitted reference range : 166 - 358 10*3/ ?L. The reference r luca was not used to interpret this result as normal/abnormal . MPV (test code = 9.8 fL 9.5-12.9 01217-5) NRBC/100 WBC (test See_Comment [Automat ed code = 5925574777) message] The system which generated this result transmitted reference range : 0.0 - 10.0 /100 WBCs. The refer ence range was not u sed to interpret th is result as normal/abnormal . NRBC x10^3 (test code <0.01 See_Comment [Auto mated = 6832864094) message] The s ystem which generated this result transmitted reference range : 10*3/?L. The reference range was not used to interpret this result as normal/abnormal . GRAN MAT (NEUT) % 72.0 % (test code = 770-8) IMM GRAN % (test code 0.20 % = 6869315674) LYMPH % (test code = 19.8 % 736-9) MONO % (test code = 6.4 % 5905-5) EOS % (test code = 1.4 % 713-8) BASO % (test code = 0.2 % 706-2) GRAN MAT x10^3(ANC) 3.06 10*3/uL 1.88-7.09 (test code = [id number]) IMM GRAN x10^3 (test <0.03 0.00-0.06 code = [id number]) LYMPH x10^3 (test code 0.84 10*3/uL 1.32-3.29 L = 731-0) MONO x10^3 (test code 0.27 10*3/uL 0.33-0.92 L = 742-7) EOS x10^3 (test code = 0.06 10*3/uL 0.03-0.39 711-2) BASO x10^3 (test code <0.03 0.01-0.07 = 704-7) Lab Interpretation Abnormal (test code = 22879-0) [facility], [facility]OMEN, [id number] 13:41:00Liver Protocol with ElastographyUnlisted Reason for Exam - Click Yes and Enter Reason Below->YesUnlisted Reason for Exam->History of liver fibrosis [facility] : 1960 Sex: [...] on Abdom Radiol 2020;45(3):661-671. Signed: Parul Saeed MDReport Verified Date/Time: 09/08/2020 13:41:30 Reading Location: [address] Consult Reading Room PROTHROMBIN TIME/[id number] 04:34:00 Test Item Value Reference Range Interpretation Comments PROTIME (BEAKER) 11.7 seconds 11.9-14.2 L (test code = 759) INR (BEAKER) (test 0.88 See_Comment [Automat ed message] code = 370) The system [employer] generated this result transmitted ref erence range: <=5.90. The reference range was not used to int erpret this result as normal/abnormal . RECOMMENDED COUMADIN/WARFARIN INR THERAPY RANGESSTANDARD DOSE: 2.0 - 3.0 Includes: PROPHYLAXIS forvenous thrombosis, systemic embolization; TREATMENT for venous thrombosis and/or pulmonary embolus.HIGH RISK: Target INR is 2.5-3.5 for patients with mechanical heart valves.BASIC METABOLIC [id number] 04:51:00 Test Item Value Reference Range Interpretation [...] S NOT APPLICABLE FOR DIALYSIS PATIEN TS. Reconciliation Machine Operator ID Ryan FOLEY WHEPATIC FUNCTION [id number] 04:51:00 Test Item Value Reference Range Interpretation [...] code = 132 U/L 6-55 H 347) Reconciliation Machine Operator HONG FOLEY [id number] 04:51:00 Test Item Value Reference Range Interpretation Comments LIPASE (BEAKER) (test code = 749) 115 U/L 8-78 H Reconciliation Machine Operator ID Ryan FOLEY WPROTHROMBIN TIME/[id number] 04:25:00 Test Item Value Reference Range Interpretation Comments PROTIME (TERRY) 12.3 seconds 11.9-14.2 (test code = 759) INR (BEAKER) (test 0.94 See_Comment [Automat ed message] code = 370) The system [employer] generated this result transmitted ref erence range: <=5.90. The reference range was not used to int erpret this result as normal/abnormal . RECOMMENDED COUMADIN/WARFARIN INR THERAPY RANGESSTANDARD DOSE: 2.0 - 3.0 Includes: PROPHYLAXIS forvenous thrombosis, systemic embolization; TREATMENT for venous thrombosis and/or pulmonary embolus.HIGH RISK: Target INR is 2.5-3.5 for patients with mechanical heart valves.FL, [id number] 08:00:00INTRA OP IMAGIN Reason for exam:->ercp [facility] : 1960 Sex: FFluoroscopic unit utilized for a procedure performed in the OR. No interpretation was requested. Refer to the operative report for findings. Refer to PACS for patient radiation dose information.SARS-COV2/RT-PCR ([facility])2020-09-06 06:35:00 Test Item Value Reference Range Interpretation Comments SARS-COV2/RT-PCR (test Negative Not Detected, Negative, code = 4573718) See external report for linked test SARS-COV-2 PERFORMING LAB [facility] DEVAN (test code = 4155733) Negative result for this test determines that [...] the Simms SARS-CoV-2 assay.Fact Sheet for Healthcare Providers:https://www.[place].simms/bertha/ SE_USQA-QlZ-6_UXU_Tgdd_Lfhbc_99-006234.pdfFact Sheet for Healthcare Patients:https://www.[place].ab narayan/bertha/HA_QYLN-RqF-0_Jeapgje_Imdo_Dsjrq_HP_53-226713N8.pdfPerforming Laboratory:[facility] [place] [address] PROTHROMBIN TIME/[id number] 04:41:00 Test Item Value Reference Range Interpretation Comments PROTIME (BEAKER) 12.4 seconds 11.9-14.2 (test code = 759) INR (BEAKER) (test 0.95 See_Comment [Automat ed message] code = 370) The system [employer] generated this result transmitted ref erence range: <=5.90. The reference range was not used to int erpret this result as normal/abnormal . RECOMMENDED COUMADIN/WARFARIN INR THERAPY RANGESSTANDARD DOSE: 2.0 - 3.0 Includes: PROPHYLAXIS forvenous thrombosis, systemic embolization; TREATMENT for venous thrombosis and/or pulmonary embolus.HIGH RISK: Target INR is 2.5-3.5 for patients with mechanical heart valves.[id number] 14:40:00 Test Item Value Reference Range Interpretation Comments MAGNESIUM (BEAKER) 1.9 mg/dL 1.6-2.6 Specimen slightly (test code = 627) hemolyzed Reconciliation Machine Operator ID Ryan NEGRON FBASIC METABOLIC [id number] 14:40:00 Test Item Value Reference Range Interpretation [...] S NOT APPLICABLE FOR DIALYSIS PATIEN TS. Reconciliation Machine Operator ID Ryan NEGRON FHEPATIC FUNCTION [id number] 14:40:00 Test Item Value Reference Range Interpretation [...] Specimen slightly (test code = 347) hemolyzed Reconciliation Machine Operator ID - MIGDALIA [id number] 14:40:00 Test Item Value Reference Range Interpretation Comments LIPASE (BEAKER) (test code = 749) 446 U/L 8-78 H Reconciliation Machine Operator ID - MIGDALIA FCBC W/PLT COUNT & AUTO [id number] 14:14:00 Test Item Value Reference Range Interpretation [...] 0-1 PERCENT (BEAKER) (test code = 2801) DC, [id number] 08:35:00Reason for exam:->abnormal imaging [facility] 1960 Sex: FFluoroscopic unit utilized for a procedure performed in the OR. No interpretation was requested. Refer to the operative report for findings. Refer to PACS for patient radiation dose information.[id number] 06:42:00 Test Item Value Reference Range Interpretation Comments MAGNESIUM (BEAKER) (test code = 1.8 mg/dL 1.6-2.6 627) Reconciliation Machine Operator ID - [id number] 06:42:00 Test Item Value Reference Range Interpretation Comments PHOSPHORUS (BEAKER) (test code = 3.4 mg/dL 2.3-4.7 604) Reconciliation Machine Operator ID - EDASIHEPATIC FUNCTION [id number] 06:42:00 Test Item Value Reference Range Interpretation [...] code = 89 U/L 6-55 H 347) Reconciliation Machine Operator ID - EDASIBASIC METABOLIC [id number] 06:42:00 Test Item Value Reference Range Interpretation [...] S NOT APPLICABLE FOR DIALYSIS PATIEN TS. Reconciliation Machine Operator ID - EDASICBC W/PLT COUNT & AUTO [id number] 05:27:00 Test Item Value Reference Range Interpretation [...] PERCENT (BEAKER) (test code = 2801) SARS-COV2/RT-PCR ([facility])2020-08-26 12:43:00 Test Item Value Reference Range Interpretation Comments SARS-COV2/RT-PCR (test Negative Not Detected, Negative, code = 2652503) See external report for linked test SARS-COV-2 PERFORMING LAB [facility] DEVAN (test code = 8360744) Negative result for this test determines that [...] 564(g) of the Act.Fact Sheet for Healthcare Providers:https://www.[employer]antia Therapeuticsidel.com/sites/default/files/product/documents/Fact_Shee p_SG_Bpgxhcnij_Zyqq_HGLU-BqX-3.pdfFact Sheet for Healthcare Patients:https://www.[employer].com/sites/default/files/product/ documents/Gzdr_Lnsjs_Bvdoxena_Snaw_ILIN-OoG-4.pdfPerforming Laboratory:[facility], [place] [address]DXZPP METABOLIC PANEL 2020-08-26 06:19:00 Test Item Value [...] S NOT APPLICABLE FOR DIALYSIS PATIEN TS. Reconciliation Machine Operator ID - PIAYA [id number] 06:19:00 Test Item Value Reference Range Interpretation Comments MAGNESIUM (BEAKER) (test code = 1.8 mg/dL 1.6-2.6 627) Reconciliation Machine Operator ID - PIAYA LHEPATIC FUNCTION [id number] 06:19:00 Test Item Value Reference Range Interpretation [...] code = 82 U/L 6-55 H 347) Reconciliation Machine Operator ID - PIAYA LCBC W/PLT COUNT & AUTO [id number] 05:37:00 Test Item Value Reference Range Interpretation [...] images do not require a Radiology diagnostic report.[facility] TIME OR (NON-REPORTABLE)2020-07-18 13:25:02These images do not require a Radiology diagnostic report.[facility] GLUCOSE (AUTOMATED) 2020-07-18 12:07:46 Test Item Value Reference Range Interpretation Comments POCT GLU (test code = 9807372342) 98 mg/dL 70-110 Lab Interpretation (test code = Normal 08495-7) [facility] GLUCOSE (AUTOMATED)2020-07-18 12:07:46 Test Item Value Reference Range Interpretation Comments POCT GLU (test code = 6378355544) 98 mg/dL 70-110 Lab Interpretation (test code = Normal 74076-7) [facility] ABDOMEN PELVIS W [id number] 01:39:22 1. ?No acute obstruction or inflammation in the abdomen or pelvis. 2. Appendix removed. 3. No adnexal mass. 4. There is abundant stool throughout the colon. RL: 1105 HISTORY: ?Abdominal abscess/infection suspected COMPARISON:none TECHNIQUE:CT scan of the abdomen and pelvis performed. Contiguous axial CT imageswere obtained after administration of intravenous contrast. ?CT scan doneaccording to [facility]. Technical quality: Technical quality: adequate. FINDINGS: Lung [...] of intravenous contrast. CT scan doneaccording to [facility]. Technical quality: Technical quality: adequate.FINDINGS:Lung bases are [...] There is abundant stoolthroughout the colon.RL: 1105 [facility]St[facility]TRMUS[facility]ERNIN [id number] 00:55:45 Test Item Value Reference Range Interpretation Comments TROPONIN I (test 0.002 ng/mL See_Comment [Automated code = 2676441356) message] The system which generated this result [...] ? Lab Interpretation Normal (test code = 17532-9) [facility]COVID[facility] (ID NOW RAPID TESTING)2020-07-08 00:47:04 Test Item Value Reference Range Interpretation Comments SARS-CoV-2 Rapid ID NOW Not Detected Not Detected (test code = 50908-9) KIM (test code = KIM) ID NOW COVID-19 Assay is an isothermal nucleic acid amplification test intended for the qualitative detection of nucleic acid from SARS-CoV-2 viral RNA in nasopharyngeal (FOUNDER AND CHIEF TECHNICAL OFFICER) specimens. It is used under Emergency Use [...] indicated. Lab Interpretation Normal (test code = 67200-1) [facility] HospitalMAGNESIUM2021-03-26 00:45:06 Test Item Value Reference Range Interpretation Comments MAGNESIUM (test code = 0315578777) 2.0 mg/dL 1.7-2.4 Lab Interpretation (test code = Normal 65148-1) [facility] HospitalCOMP. METABOLIC PANEL (96761)2020-07-08 00:44:41 Test Item Value Reference Range Interpretation Comments NA (test code = 139 mmol/L 135-145 9333334335) K (test code = 4.4 mmol/L 3.5-5.0 7551585596) CL (test code = 108 mmol/L 98-108 3176393970) CO2 TOTAL (test code = 23 mmol/L 23-31 6059082575) AGAP (test code = 2-16 4873408444) BUN (test code = 22 mg/dL 7-23 7764838387) GLUCOSE (test code = 107 mg/dL 70-110 4809097622) CREATININE (test code = 0.62 mg/dL 0.50-1.04 8202362303) TOTAL BILI (test code = 0.9 mg/dL 0.1-1.8 3893435523) CALCIUM (test code = 10.0 mg/dL 8.6-10.6 1270210719) T PROTEIN (test code = 8.3 g/dL 6.3-8.2 H 6563690555) ALBUMIN (test code = 4.8 g/dL 3.5-5.0 5044307702) ALK PHOS (test code = 1085 U/L 34-122 H 2831368234) ALTv (test code = 383 U/L 5-35 H 1742-6) AST(SGOT) (test code = 217 U/L 13-40 H 4691123230) eGFR Calculation mL/min/1.73m2 (Non-) (test code = 4796433895) eGFR Calculation mL/min/1.73m2 () (test code = 7354097304) KIM (test code = KIM) Association of [...] tests). Lab Interpretation Abnormal (test code = 17895-2) [facility] HospitalLIPASE2021-03-26 00:44:41 Test Item Value Reference Range Interpretation Comments LIPASE (test code = 8420999848) 131 U/L 0-220 Lab Interpretation (test code = Normal 14995-1) [facility] HospitalURINALYSIS2021-03-26 00:38:06 Test Item Value Reference Range Interpretation Comments APPEARANCE (test code = Clear Clear 7476395090) COLOR (test code = Yellow Yellow 1124121495) PH (test code = 4.8-8.0 1532926036) SP GRAVITY (test code = 1.003-1.030 4626220475) GLU U QUAL (test code = Normal Normal 8163067938) BLOOD (test code = Negative Negative 9677566051) KETONES (test code = Negative Negative 1313042342) PROTEIN (test code = Negative Negative 2887-8) UROBILIN (test code = 4.0 mg/dL Normal A 5985673106) BILIRUBIN (test code = Negative Negative 0028418609) NITRITE (test code = Negative Negative 0740553764) LEUK NICHOLE (test code = Negative Negative 8867692103) RBC/HPF (test code = <1 See_Comment [Autom ated message] 1998000666) The system [employer] generated this result transmit gulshan reference range : 0 - 3 HPF. The refe rence range was not u sed to interpret th is result as normal/abnormal . WBC/HPF (test code = See_Comment [Autom ated message] 8335038354) The system [employer] generated this result transmit gulshan reference range : 0 - 5 HPF. The refe rence range was not u sed to interpret th is result as normal/abnormal . BACTERIA (test code = Few Negative A 6434848723) MUCOUS (test code = Slight Negative LPF A 8670615125) SQ EPITH (test code = HPF 8667915478) Lab Interpretation (test Abnormal code = 20729-8) [facility] WITH [id number] 00:32:00 Test Item Value Reference Range Interpretation [...] RDW-SD (test code = 48.1 fL 39.0-49.9 48606-4) RDW-CV (test code = 14.5 % 12.0-15.5 788-0) PLT (test code = See_Comment [Automated 777-3) message] The sy stem which generated this result transmitted reference range : 166 - 358 10*3/ ?L. The reference r luca was not used to interpret this result as normal/abnormal . MPV (test code = 9.5 fL 9.5-12.9 10081-1) NRBC/100 WBC (test See_Comment [Automat ed code = 3650614537) message] The system which generated this result transmitted reference range : 0.0 - 10.0 /100 WBCs. The refer ence range was not u sed to interpret th is result as normal/abnormal . NRBC x10^3 (test code <0.01 See_Comment [Auto mated = 1254894852) message] The s ystem which generated this result transmitted reference range : 10*3/?L. The reference range was not used to interpret this result as normal/abnormal . GRAN MAT (NEUT) % 78.2 % (test code = 770-8) IMM GRAN % (test code 0.60 % = 6722613318) LYMPH % (test code = 11.9 % 736-9) MONO % (test code = 8.3 % 5905-5) EOS % (test code = 0.5 % 713-8) BASO % (test code = 0.5 % 706-2) GRAN MAT x10^3(ANC) 7.55 10*3/uL 1.88-7.09 H (test code = 6046405704) IMM GRAN x10^3 (test 0.06 10*3/uL 0.00-0.06 code = 3093105650) LYMPH x10^3 (test code 1.15 10*3/uL 1.32-3.29 L = 731-0) MONO x10^3 (test code 0.80 10*3/uL 0.33-0.92 = 742-7) EOS x10^3 (test code = 0.05 10*3/uL 0.03-0.39 711-2) BASO x10^3 (test code 0.05 10*3/uL 0.01-0.07 = 704-7) Lab Interpretation Abnormal (test code = 32630-5) [facility] TIME OR (NON-REPORTABLE)2020-07-04 13:40:03 These images do not require a Radiology diagnostic report.[facility] TIME OR (NON-REPORTABLE)2020-06-20 14:58:12These images do not require a Radiology diagnostic report.[facility] Metabolic Panel (NA, K, CL, CO2, GLUCOSE, BUN, CREATININE, CA)2020-05-06 23:29:00 Test Item Value Reference Range Interpretation Comments NA (test code = 138 mmol/L 135-145 2869850704) K (test code = 4.4 mmol/L 3.5-5 4654114368) CL (test code = 108 mmol/L 98-108 4649518555) CO2 TOTAL (test code = 20 mmol/L 23-31 L 6643414004) AGAP (test code = 2-16 0862397731) BUN (test code = 18 mg/dL 7-23 8309641824) GLUCOSE (test code = 90 mg/dL 70-110 3947693519) CREATININE (test code = 0.68 mg/dL 0.5-1.04 7404291062) CALCIUM (test code = 9.1 mg/dL 8.6-10.6 1610965202) eGFR Calculation mL/min/1.73m2 (Non-) (test code = 3247499467) eGFR Calculation mL/min/1.73m2 () (test code = 3077088529) KIM (test code = KIM) Association of [...] tests). Lab Interpretation Abnormal (test code = 18120-4) [facility] HospitalHepatic Function Panel (ALB, T.PRO, BILI T, BU/BC, ALT, AST, ALK PHOS)2020-05-06 23:28:00 Test Item Value Reference Range Interpretation Comments TOTAL BILI (test code = 9305648701) 1.1 mg/dL 0.1-1.1 BILI UNCON (test code = 5522121683) 0.4 mg/dL 0.1-1.1 BILI CONJ (test code = 2737610363) 0.0 mg/dL 0-0.3 T PROTEIN (test code = 3922370327) 7.9 g/dL 6.3-8.2 ALBUMIN (test code = 9653419711) 4.4 g/dL 3.5-5 ALK PHOS (test code = 0315951582) 984 U/L 34-122 H ALTv (test code = 1742-6) 218 U/L 5-35 H AST(SGOT) (test code = 1133516592) 133 U/L 13-40 H Lab Interpretation (test code = Abnormal 28531-2) [facility] HospitalElli [id number] 22:19:00 Test Item Value Reference Range Interpretation Comments TROPONIN I (test 0.021 ng/mL See_Comment [Automated code = 6608499190) message] The system which generated this result [...] ? Lab Interpretation Normal (test code = 46249-6) [facility]COVID[facility] (ID NOW RAPID TESTING)2020-05-06 22:13:00 Test Item Value Reference Range Interpretation Comments SARS-CoV-2 Rapid ID NOW Not Detected Not Detected (test code = 08134-2) KIM (test code = KIM) ID NOW COVID-19 Assay is an isothermal nucleic acid amplification test intended for the qualitative detection of nucleic acid from SARS-CoV-2 viral RNA in nasopharyngeal (FOUNDER AND CHIEF TECHNICAL OFFICER) specimens. It is used under Emergency Use [...] indicated. Lab Interpretation Normal (test code = 29835-0) [facility] HospitalUrinalysis2021-01-22 22:09:00 Test Item Value Reference Range Interpretation Comments APPEARANCE (test code = Clear Clear 2816204627) COLOR (test code = Yellow Yellow 4865181926) PH (test code = 4.8-8.0 9569293442) SP GRAVITY (test code = 1.003-1.030 1995917223) GLU U QUAL (test code = Normal Normal 4604649670) BLOOD (test code = Negative Negative INTERFERE NCE FROM 6561655750) ASCORBIC ACID M AY CAUSE FALSE NEG ATIVE RESULT KETONES (test code = Negative Negative 7366786970) PROTEIN (test code = Negative Negative 2887-8) UROBILIN (test code = 2.0 mg/dL Normal A 8451889061) BILIRUBIN (test code = Negative Negative 8310266255) NITRITE (test code = Negative Negative 9486629707) LEUK NICHOLE (test code = Negative Negative 2804374552) RBC/HPF (test code = See_Comment [Autom ated message] 4855152388) The system [employer] generated this result transmitted ref erence range: 0 - 3 HP F. The reference range was not used to int erpret this result as normal/abnormal . WBC/HPF (test code = See_Comment [Autom ated message] 4173126651) The system [employer] generated this result transmitted ref erence range: 0 - 5 HP F. The reference range was not used to int erpret this result as normal/abnormal . BACTERIA (test code = Few Negative A 9537338614) SQ EPITH (test code = HPF 8100109889) HYAL CAST (test code = See_Comment [Aut omated message] 7307720200) The system [employer] generated this result transmitted ref erence range: <=2 LPF. The reference range was not used to int erpret this result as normal/abnormal . Lab Interpretation Abnormal (test code = 44534-7) [facility] HospitalLipase [id number] 22:08:00 Test Item Value Reference Range Interpretation Comments LIPASE (test code = 3530396751) 114 U/L 0-220 Lab Interpretation (test code = Normal 16844-4) [facility] HospitalCB with Wlpmbytoszsm4675-04-23 22:02:00 Test Item Value Reference Range Interpretation Comments WBC (test code = See_Comment [Automated 6690-2) message] The sy stem which generated this result transmitted reference range : 4.30 - 11.10 10*3/?L. The reference range was not used to interpret this result as normal/abnormal . RBC (test code = See_Comment [Automated 949-8) message] The sy stem which generated this [...] RDW-SD (test code = 41.0 fL 39-49.9 37385-8) RDW-CV (test code = 12.4 % 12-15.5 788-0) PLT (test code = See_Comment [Automated 777-3) message] The sy stem which generated this result transmitted reference range : 166 - 358 10*3/ ?L. The reference r luca was not used to interpret this result as normal/abnormal . MPV (test code = 10.5 fL 9.5-12.9 03378-6) NRBC/100 WBC (test See_Comment [Automat ed code = 6465228925) message] The system which generated this result transmitted reference range : 0.0 - 10.0 /100 WBCs. The refer ence range was not u sed to interpret th is result as normal/abnormal . NRBC x10^3 (test code <0.01 See_Comment [Auto mated = 0638805859) message] The s ystem which generated this result transmitted reference range : 10*3/?L. The reference range was not used to interpret this result as normal/abnormal . GRAN MAT (NEUT) % 71.8 % (test code = 770-8) IMM GRAN % (test code 0.10 % = 4724914510) LYMPH % (test code = 19.0 % 736-9) MONO % (test code = 6.2 % 5905-5) EOS % (test code = 2.2 % 713-8) BASO % (test code = 0.7 % 706-2) GRAN MAT x10^3(ANC) 4.83 10*3/uL 1.88-7.09 (test code = 9739806554) IMM GRAN x10^3 (test <0.03 0-0.06 code = 6755412738) LYMPH x10^3 (test code 1.28 10*3/uL 1.32-3.29 L = 731-0) MONO x10^3 (test code 0.42 10*3/uL 0.33-0.92 = 742-7) EOS x10^3 (test code = 0.15 10*3/uL 0.03-0.39 711-2) BASO x10^3 (test code 0.05 10*3/uL 0.01-0.07 = 704-7) Lab Interpretation Abnormal (test code = 00134-3) [facility] HospitalChes 1 [id number] 21:48:28Findings and Impression: ?Subcentimeter calcified granuloma projecting [...] is normal to mildly enlarged. No acuteosseous abnormalities.[facility] HospitalUrinalysis2020-12-12 05:27:00 Test Item Value Reference Range Interpretation Comments APPEARANCE (test code Slightly Cloudy Clear A = 9945131757) COLOR (test code = Yellow Yellow 8609250775) PH (test code = 4.8-8.0 3615539812) SP GRAVITY (test code >=1.030 1.003-1.030 = 6556516775) GLU U QUAL (test code Negative Negative = 3073559624) BLOOD (test code = Trace Negative A 5141173478) KETONES (test code = Negative Negative 8571554370) PROTEIN (test code = Negative Negative 2887-8) UROBILIN (test code = 1.0 mg/dL See_Comment [Auto mated 3993220121) message] The system which generated this result transmit gulshan reference range : 0-1.0 mg/dL. Th e reference range was not used to interpret this result as normal/abnormal . BILIRUBIN (test code Small Negative A = 6853720378) NITRITE (test code = Negative Negative 2316111837) LEUK NICHOLE (test code Trace Negative A = 3880261244) RBC/HPF (test code = See_Comment [Autom ated 9498465135) message] The system which generated this result transmit gulshan reference range : 0 - 3 HPF. The reference range was not used to interpret this result as normal/abnormal . WBC/HPF (test code = See_Comment [Autom ated 2859601982) message] The system which generated this result transmit gulshan reference range : 0 - 5 HPF. The reference range was not used to interpret this result as normal/abnormal . BACTERIA (test code = Few Negative A 1742090177) AMORPHOUS (test code Few Rare HPF A = 8303535136) SQ EPITH (test code = HPF 0581442721) Lab Interpretation Abnormal (test code = 59047-2) [facility] HospitalCOVID-[facility] (ID NOW RAPID TESTING)2020-03-26 04:39:00 Test Item Value Reference Range Interpretation Comments SARS-CoV-2 Rapid ID NOW Not Detected Not Detected (test code = 63169-0) KIM (test code = KIM) ID NOW COVID-19 Assay is an isothermal nucleic acid amplification test intended for the qualitative detection of nucleic acid from SARS-CoV-2 viral RNA in nasopharyngeal (FOUNDER AND CHIEF TECHNICAL OFFICER) specimens. It is used under Emergency Use [...] indicated. Lab Interpretation Normal (test code = 16020-8) [facility] HospitalComplete Metabolic [id number] 04:12:00 Test Item Value Reference Range Interpretation Comments NA (test code = 139 mmol/L 135-145 4610520682) K (test code = 4.5 mmol/L 3.5-5 2436104135) CL (test code = 108 mmol/L 98-108 8011689054) CO2 TOTAL (test code = 22 mmol/L 23-31 L 3240221624) AGAP (test code = 2-16 3883253716) BUN (test code = 17 mg/dL 7-23 0063270030) GLUCOSE (test code = 102 mg/dL 70-110 5670788314) CREATININE (test code = 0.96 mg/dL 0.5-1.04 7276663399) TOTAL BILI (test code = 0.7 mg/dL 0.1-1.4 7713034299) CALCIUM (test code = 9.3 mg/dL 8.6-10.6 2156781751) T PROTEIN (test code = 7.3 g/dL 6.3-8.2 2392881622) ALBUMIN (test code = 4.1 g/dL 3.5-5 8546316800) ALK PHOS (test code = 675 U/L 34-122 H 6764669596) ALTv (test code = 115 U/L 5-35 H 1742-6) AST(SGOT) (test code = 100 U/L 13-40 H 0593590229) eGFR Calculation mL/min/1.73m2 (Non-) (test code = 5344479419) eGFR Calculation mL/min/1.73m2 () (test code = 5103037137) KIM (test code = KIM) Association of [...] tests). Lab Interpretation Abnormal (test code = 74541-7) [facility] HospitalLipase, [id number] 04:11:00 Test Item Value Reference Range Interpretation Comments LIPASE (test code = 3390205351) 171 U/L 0-220 Lab Interpretation (test code = Normal 42456-8) [facility] HospitalCBC with [id number] 03:56:00 Test Item Value Reference Range Interpretation [...] RDW-SD (test code = 47.5 fL 39-49.9 91593-0) RDW-CV (test code = 13.3 % 12-15.5 788-0) PLT (test code = See_Comment [Automated 777-3) message] The sy stem which generated this result transmitted reference range : 166 - 358 10*3/ ?L. The reference r luca was not used to interpret this result as normal/abnormal . MPV (test code = 9.4 fL 9.5-12.9 L 51901-8) NRBC/100 WBC (test See_Comment [Automat ed code = 1945257346) message] The system which generated this result transmitted reference range : 0.0 - 10.0 /100 WBCs. The refer ence range was not u sed to interpret th is result as normal/abnormal . NRBC x10^3 (test code <0.01 See_Comment [Auto mated = 2127780839) message] The s ystem which generated this result transmitted reference range : 10*3/?L. The reference range was not used to interpret this result as normal/abnormal . GRAN MAT (NEUT) % 67.1 % (test code = 770-8) IMM GRAN % (test code 0.70 % = 6995601190) LYMPH % (test code = 22.2 % 736-9) MONO % (test code = 6.4 % 5905-5) EOS % (test code = 2.9 % 713-8) BASO % (test code = 0.7 % 706-2) GRAN MAT x10^3(ANC) 3.69 10*3/uL 1.88-7.09 (test code = 5782846197) IMM GRAN x10^3 (test 0.04 10*3/uL 0-0.06 code = 5310856884) LYMPH x10^3 (test code 1.22 10*3/uL 1.32-3.29 L = 731-0) MONO x10^3 (test code 0.35 10*3/uL 0.33-0.92 = 742-7) EOS x10^3 (test code = 0.16 10*3/uL 0.03-0.39 711-2) BASO x10^3 (test code 0.04 10*3/uL 0.01-0.07 = 704-7) Lab Interpretation Abnormal (test code = 75502-4) [facility] HospitalMR BRAIN WO [id number] 17:24:06 Impression: 1. ?Normal MRI brain. 2. [...] MRI brain.2. Mastoid effusions.3. Right petrous apex effusion.[facility] HospitalBLOOD CULTURE [id number] 21:10:00 Test Item Value Reference Range Interpretation Comments Blood Culture-Aerobic Culture positive. No growth AA P revious (test code = 99604-7) See Blood prelim inary Culture Workup verified resu lt for additional was Culture I n information. Progress on 02/02/2020 at 1901 CDT Blood No organisms No growth Previous Culture-Anaerobic isolated preliminar y (test code = 19169-5) verifi ed result was Culture In Progress on 02/03/2020 at 1314 CDT Lab Interpretation Abnormal (test code = 53324-3) [facility] HospitalBLOOD CULTURE [id number] 21:01:00 Test Item Value Reference Range Interpretation Comments Blood Culture-Aerobic No organisms No growth Previo us (test code = 22103-4) isolated prelim inary verified result was Culture [...] Culture-Anaerobic isolated preliminar y (test code = 07533-7) verifi ed result was Culture In Progress [...] CDT Lab Interpretation Normal (test code = 32718-3) [facility] METABOLIC PANEL (NA, K, CL, CO2, GLUCOSE, BUN, CREATININE, CA)2020-02-07 09:09:00 Test Item Value Reference Range Interpretation Comments NA (test code = 136 mmol/L 135-145 2441401962) K (test code = 4.3 mmol/L 3.5-5 Slight hemoly sis 8783975282) CL (test code = 104 mmol/L 98-108 8143604273) CO2 TOTAL (test 26 mmol/L 23-31 code = 7131074266) AGAP (test code = 2-16 0291738253) BUN (test code = 12 mg/dL 7-23 Slight hemo lysis 8906281875) GLUCOSE (test code 98 mg/dL 70-110 = 1483495391) CREATININE (test 0.50 mg/dL 0.5-1.04 code = 0552396104) CALCIUM (test code 8.9 mg/dL 8.6-10.6 = 9374474166) eGFR Calculation mL/min/1.73m2 (Non-) (test code = 0449669668) eGFR Calculation mL/min/1.73m2 () (test code = 7301931035) KIM (test code = Association of KIM) [...] or urine or abnormalities in imaging tests). [facility] WITH [id number] 08:58:00 Test Item Value Reference Range Interpretation Comments WBC (test code = See_Comment [Automated 9690-2) message] The sy stem which generated this result transmitted reference range : 4.30 - 11.10 10*3/?L. The reference range was not used to interpret this result as normal/abnormal . RBC (test code = See_Comment L [Automated 099-8) message] The sy stem which generated this [...] RDW-SD (test code = 48.5 fL 39-49.9 41961-4) RDW-CV (test code = 13.9 % 12-15.5 788-0) PLT (test code = See_Comment [Automated 777-3) message] The sy stem which generated this result transmitted reference range : 166 - 358 10*3/ ?L. The reference r luca was not used to interpret this result as normal/abnormal . MPV (test code = 9.1 fL 9.5-12.9 L 12878-3) NRBC/100 WBC (test See_Comment [Automat ed code = 4209111493) message] The system which generated this result transmitted reference range : 0.0 - 10.0 /100 WBCs. The refer ence range was not u sed to interpret th is result as normal/abnormal . NRBC x10^3 (test code <0.01 See_Comment [Auto mated = 7271035203) message] The s ystem which generated this result transmitted reference range : 10*3/?L. The reference range was not used to interpret this result as normal/abnormal . GRAN MAT (NEUT) % 69.8 % (test code = 770-8) IMM GRAN % (test code 0.40 % = 6989469478) LYMPH % (test code = 21.9 % 736-9) MONO % (test code = 6.7 % 5905-5) EOS % (test code = 0.8 % 713-8) BASO % (test code = 0.4 % 706-2) GRAN MAT x10^3(ANC) 3.66 10*3/uL 1.88-7.09 (test code = 7885289048) IMM GRAN x10^3 (test <0.03 0-0.06 code = 6366446948) LYMPH x10^3 (test code 1.15 10*3/uL 1.32-3.29 L = 731-0) MONO x10^3 (test code 0.35 10*3/uL 0.33-0.92 = 742-7) EOS x10^3 (test code = 0.04 10*3/uL 0.03-0.39 711-2) BASO x10^3 (test code <0.03 0.01-0.07 = 704-7) Lab Interpretation Abnormal (test code = 40118-2) [facility] MUSCLE AB,IGG W/[id number] 15:17:00 Test Item Value Reference Range Interpretation Comments F-ACTIN (SMOOTH See_Comment If F-Actin (Smooth MUSCLE) AB, Muscle) Antibod y, IgG is IGG(BEAKER) (test negative, the Smooth Muscle code = 59776-1) Antibody tit er by IFA is not [...] for A IH is strong.Performe d By: [facility] [place] [id number] Director: Praveena Mantilla MD [Automated mess age] The system which ge nerated this result transmit gulshan reference range : 0 - 19 Units. The refe rence range was not used to interpret this result as normal/abnormal . [facility] HospitalMITOCHONDRIAL M2 AB, [id number] 00:28:00 Test Item Value Reference Range Interpretation Comments AMA (test code = See_Comment H REFERENCE I NTERVAL: 69221-2) Mitochondrial ( M2) Antibody, IgG ? ?20.0 [...] does not rule out PBC.Perform ed By: [facility] [place] [id number] Director: Praveena Mantilla MD [Aut omated message] The sy stem which generated this result transmit gulshan reference range : 0.0 - 24.9 Units. The reference range was not used to int erpret this result as normal/abnormal . Lab Interpretation Abnormal (test code = 63353-6) [facility] HospitalBLOOD CULTURE [id number] 17:01:00 Test Item Value Reference Range Interpretation Comments Blood Culture-Aerobic No organisms No growth Previo us (test code = 95384-5) isolated prelim inary verified result was Culture [...] Culture-Anaerobic isolated preliminar y (test code = 51333-6) verifi ed result was Culture In Progress [...] CDT Lab Interpretation Normal (test code = 13234-1) [facility] HospitalBLOOD CULTURE [id number] 14:01:00 Test Item Value Reference Range Interpretation Comments Blood Culture Coagulase negative Addition al Workup (test Staphylococcus work-up perfo rmed code = 600-7) only per reque st. Culture plate(s ) will be saved until this date : - 02/10/20 Gram stain Isolated from aerobic (test code = bottle Gram positive 664-3) cocci [facility] HospitalCOMP. METABOLIC PANEL (20830)2020-02-05 09:59:00 Test Item Value Reference Range Interpretation Comments NA (test code = 140 mmol/L 135-145 0053365845) K (test code = 3.7 mmol/L 3.5-5 3537045311) CL (test code = 107 mmol/L 98-108 8995638741) CO2 TOTAL (test code = 25 mmol/L 23-31 0642049990) AGAP (test code = 2-16 5537503116) BUN (test code = 11 mg/dL 7-23 0446001019) GLUCOSE (test code = 90 mg/dL 70-110 1900068100) CREATININE (test code = 0.58 mg/dL 0.5-1.04 8107839477) TOTAL BILI (test code = 0.9 mg/dL 0.1-1.2 8461761424) CALCIUM (test code = 8.9 mg/dL 8.6-10.6 7134409248) T PROTEIN (test code = 6.7 g/dL 6.3-8.2 8044029268) ALBUMIN (test code = 3.5 g/dL 3.5-5 2311984055) ALK PHOS (test code = 518 U/L 34-122 H 6552936502) ALTv (test code = 84 U/L 5-35 H 1742-6) AST(SGOT) (test code = 49 U/L 13-40 H 3025073319) eGFR Calculation mL/min/1.73m2 (Non-) (test code = 0412829555) eGFR Calculation mL/min/1.73m2 () (test code = 6689377845) KIM (test code = KIM) Association of [...] tests). Lab Interpretation Abnormal (test code = 02577-4) [facility] WITH [id number] 09:43:00 Test Item Value Reference Range Interpretation Comments WBC (test code = See_Comment [Automated 3311-2) message] The sy stem which generated this result transmitted reference range : 4.30 - 11.10 10*3/?L. The reference range was not used to interpret this result as normal/abnormal . RBC (test code = See_Comment L [Automated 292-8) message] The sy stem which generated this [...] RDW-SD (test code = 48.1 fL 39-49.9 25474-7) RDW-CV (test code = 13.4 % 12-15.5 788-0) PLT (test code = See_Comment [Automated 777-3) message] The sy stem which generated this result transmitted reference range : 166 - 358 10*3/ ?L. The reference r luca was not used to interpret this result as normal/abnormal . MPV (test code = 8.7 fL 9.5-12.9 L 08381-6) NRBC/100 WBC (test See_Comment [Automat ed code = 1938754267) message] The system which generated this result transmitted reference range : 0.0 - 10.0 /100 WBCs. The refer ence range was not u sed to interpret th is result as normal/abnormal . NRBC x10^3 (test code <0.01 See_Comment [Auto mated = 5400736838) message] The s ystem which generated this result transmitted reference range : 10*3/?L. The reference range was not used to interpret this result as normal/abnormal . GRAN MAT (NEUT) % 68.3 % (test code = 770-8) IMM GRAN % (test code 0.20 % = 7052374363) LYMPH % (test code = 24.2 % 736-9) MONO % (test code = 5.5 % 5905-5) EOS % (test code = 1.4 % 713-8) BASO % (test code = 0.4 % 706-2) GRAN MAT x10^3(ANC) 3.47 10*3/uL 1.88-7.09 (test code = 4080103992) IMM GRAN x10^3 (test <0.03 0-0.06 code = 9059606124) LYMPH x10^3 (test code 1.23 10*3/uL 1.32-3.29 L = 731-0) MONO x10^3 (test code 0.28 10*3/uL 0.33-0.92 L = 742-7) EOS x10^3 (test code = 0.07 10*3/uL 0.03-0.39 711-2) BASO x10^3 (test code <0.03 0.01-0.07 = 704-7) Lab Interpretation Abnormal (test code = 77256-5) [facility] CERVICAL SPINE WO [id number] 05:59:37 Mild degenerative changes most pronounced at C5-C6 and C6-C7 as above. RL: 460 AFC: [id number] Ordering physician: GET AGUILLON INDICATION: Neck pain, [...] pronounced at C5-C6 and C6-C7 as above.RL: 460AF: [id number] signed by Minal Vaughan MD, PhD at 02/05/2020 12:59 AMUnSt[facility] David's Medical CenterOCCULT (GUAIAC) [id number] 14:40:00 Test Item Value Reference Range Interpretation Comments Occult (guaiac) Blood (test code = Negative Negative 2335-8) Lab Interpretation (test code = Normal 24610-0) [facility] HospitalN-TERMINAL [id number] 10:32:00 Test Item Value Reference Range Interpretation Comments NT-proBNP (test code 403 pg/mL See_Comment H [Autom ated = 2635622165) message] The system which generated this result transmitted reference range : <=125. The reference range was not used to interpret this result as normal/abnormal . KIM (test code = KIM) Biotin has been reported to cause a negative bias, interpret results relative to patient's use of biotin. Lab Interpretation Abnormal (test code = 32167-8) [facility]. METABOLIC PANEL (11157)2020-02-04 10:24:00 Test Item Value Reference Range Interpretation Comments NA (test code = 138 mmol/L 135-145 8662517293) K (test code = 3.7 mmol/L 3.5-5 9270302626) CL (test code = 106 mmol/L 98-108 0296999786) CO2 TOTAL (test code = 27 mmol/L 23-31 1724589917) AGAP (test code = 2-16 4208116726) BUN (test code = 9 mg/dL 7-23 5827176743) GLUCOSE (test code = 105 mg/dL 70-110 8963456668) CREATININE (test code = 0.59 mg/dL 0.5-1.04 6343127775) TOTAL BILI (test code = 0.9 mg/dL 0.1-1.2 0288261203) CALCIUM (test code = 9.0 mg/dL 8.6-10.6 8709105094) T PROTEIN (test code = 6.4 g/dL 6.3-8.2 9506048465) ALBUMIN (test code = 3.2 g/dL 3.5-5 L 2722418062) ALK PHOS (test code = 486 U/L 34-122 H 3319727405) ALTv (test code = 91 U/L 5-35 H 1742-6) AST(SGOT) (test code = 41 U/L 13-40 H 3160454287) eGFR Calculation mL/min/1.73m2 (Non-) (test code = 2385523611) eGFR Calculation mL/min/1.73m2 () (test code = 0055851138) KIM (test code = KIM) Association of [...] tests). Lab Interpretation Abnormal (test code = 29775-4) [facility] HospitalMAGNESIUM2020-10-22 10:24:00 Test Item Value Reference Range Interpretation Comments MAGNESIUM (test code = 0496274834) 1.8 mg/dL 1.7-2.4 Lab Interpretation (test code = Normal 08047-7) [facility] HospitalCB with [id number] 10:11:00 Test Item Value Reference Range Interpretation [...] RDW-SD (test code = 47.9 fL 39-49.9 66324-8) RDW-CV (test code = 13.7 % 12-15.5 788-0) PLT (test code = See_Comment [Automated 777-3) message] The sy stem which generated this result transmitted reference range : 166 - 358 10*3/ ?L. The reference r luca was not used to interpret this result as normal/abnormal . MPV (test code = 8.5 fL 9.5-12.9 L 06977-9) NRBC/100 WBC (test See_Comment [Automat ed code = 4062458147) message] The system which generated this result transmitted reference range : 0.0 - 10.0 /100 WBCs. The refer ence range was not u sed to interpret th is result as normal/abnormal . NRBC x10^3 (test code <0.01 See_Comment [Auto mated = 6003064167) message] The s ystem which generated this result transmitted reference range : 10*3/?L. The reference range was not used to interpret this result as normal/abnormal . GRAN MAT (NEUT) % 74.2 % (test code = 770-8) IMM GRAN % (test code 0.40 % = 2033260633) LYMPH % (test code = 16.6 % 736-9) MONO % (test code = 6.8 % 5905-5) EOS % (test code = 1.7 % 713-8) BASO % (test code = 0.3 % 706-2) GRAN MAT x10^3(ANC) 5.60 10*3/uL 1.88-7.09 (test code = 2517054213) IMM GRAN x10^3 (test 0.03 10*3/uL 0-0.06 code = 6334608704) LYMPH x10^3 (test code 1.25 10*3/uL 1.32-3.29 L = 731-0) MONO x10^3 (test code 0.51 10*3/uL 0.33-0.92 = 742-7) EOS x10^3 (test code = 0.13 10*3/uL 0.03-0.39 711-2) BASO x10^3 (test code <0.03 0.01-0.07 = 704-7) Lab Interpretation Abnormal (test code = 29572-8) [facility] HospitalANTI-NUCLEAR ANTIBODY [id number] 19:43:00 Test Item Value Reference Range Interpretation Comments LESLY (test code = Negative Negative 1185007473) KIM (test code = KIM) Cytoplasmic staining reactions observed. Negative - No Anti-Nuclear Antibodies detected by IFA.Positive - LESLY IFA screen performed with a 1:80 dilution in adults and a 1:40 dilution in pediatrics. Any LESLY "Positive" will have titer performed and reported separately. Lab Interpretation (test Normal code = 61998-3) [facility] HospitalCERULOPLASMIN2020-10-21 18:45:00 Test Item Value Reference Range Interpretation Comments CERULO (test code = 1342280567) 55 mg/dL 25-63 Lab Interpretation (test code = Normal 20660-2) [facility] HospitalAMMONIA, [id number] 17:29:00 Test Item Value Reference Range Interpretation Comments AMMONIA (test code = 1773636581) <9 9-33 L Lab Interpretation (test code = Abnormal 07810-3) [facility] HospitalBLOOD CULTURE [id number] 17:07:00 Test Item Value Reference Range Interpretation Comments Blood Culture-Aerobic Culture positive. No growth AA P revious (test code = 15293-6) See Blood prelim inary Culture Workup verified resu lt for additional was Culture I n information. Progress on 01/31/2020 at 1701 CDTPreviou s preliminary verified result was No growth a t 24 hours on 02/01/2020 at 1401 CDT Blood No organisms No growth Previous Culture-Anaerobic isolated preliminar y (test code = 28808-0) verifi ed result was Culture In Progress on 01/31/2020 at 1701 CDTPreviou s preliminary verified result was No growth a t 24 hours on 02/01/2020 at 1401 CDT Lab Interpretation Abnormal (test code = 84376-5) [facility] HospitalBLOOD CULTURE [id number] 17:07:00 Test Item Value Reference Range Interpretation [...] positive cocci is no longer being reported. [facility] HospitalCREATINE [id number] 10:44:00 Test Item Value Reference Range Interpretation Comments CK (test code = 3455804603) 21 U/L 33-194 L Lab Interpretation (test code = Abnormal 46414-1) [facility] HospitalN-TERMINAL [id number] 09:34:00 Test Item Value Reference Range Interpretation Comments NT-proBNP (test code 850 pg/mL See_Comment H [Autom ated = 1700873176) message] The system which generated this result transmitted reference range : <=125. The reference range was not used to interpret this result as normal/abnormal . KIM (test code = KIM) Biotin has been reported to cause a negative bias, interpret results relative to patient's use of biotin. Lab Interpretation Abnormal (test code = 24300-0) [facility]. METABOLIC PANEL (02971)2020-02-03 09:26:00 Test Item Value Reference Range Interpretation Comments NA (test code = 136 mmol/L 135-145 6424849626) K (test code = 3.6 mmol/L 3.5-5 4881970025) CL (test code = 104 mmol/L 98-108 5222633562) CO2 TOTAL (test code = 28 mmol/L 23-31 5959487275) AGAP (test code = 2-16 0889031227) BUN (test code = 7 mg/dL 7-23 4622558785) GLUCOSE (test code = 138 mg/dL 70-110 H 6038692093) CREATININE (test code = 0.61 mg/dL 0.5-1.04 9718588914) TOTAL BILI (test code = 1.0 mg/dL 0.1-1.4 9156433582) CALCIUM (test code = 9.2 mg/dL 8.6-10.6 0844888158) T PROTEIN (test code = 6.6 g/dL 6.3-8.2 6993702105) ALBUMIN (test code = 3.5 g/dL 3.5-5 7186161029) ALK PHOS (test code = 584 U/L 34-122 H 3832396942) ALTv (test code = 131 U/L 5-35 H 1742-6) AST(SGOT) (test code = 49 U/L 13-40 H 3986310610) eGFR Calculation mL/min/1.73m2 (Non-) (test code = 1383610171) eGFR Calculation mL/min/1.73m2 () (test code = 0418743682) KIM (test code = KIM) Association of [...] tests). Lab Interpretation Abnormal (test code = 62164-4) [facility] HospitalMAGNESIUM2020-10-21 09:26:00 Test Item Value Reference Range Interpretation Comments MAGNESIUM (test code = 0277359735) 1.7 mg/dL 1.7-2.4 Lab Interpretation (test code = Normal 41018-3) [facility] HospitalPHOSPHORUS2020-10-21 09:26:00 Test Item Value Reference Range Interpretation Comments PHOSPHORUS (test code = 0241840386) 4.1 mg/dL 2.5-5 Lab Interpretation (test code = Normal 23256-4) [facility] HospitalURIC [id number] 09:26:00 Test Item Value Reference Range Interpretation Comments URIC ACID (test code = 1572725504) 3.4 mg/dL 2.9-6 Lab Interpretation (test code = Normal 47621-5) [facility] HospitalCB WITH [id number] 08:58:00 Test Item Value Reference Range Interpretation Comments WBC (test code = See_Comment [Automated 7790-2) message] The sy stem which generated this [...] RDW-SD (test code = 47.2 fL 39-49.9 72069-9) RDW-CV (test code = 13.2 % 12-15.5 788-0) PLT (test code = See_Comment [Automated 777-3) message] The sy stem which generated this result transmitted reference range : 166 - 358 10*3/ ?L. The reference r luca was not used to interpret this result as normal/abnormal . MPV (test code = 8.7 fL 9.5-12.9 L 08781-1) NRBC/100 WBC (test See_Comment [Automat ed code = 3620975169) message] The system which generated this result transmitted reference range : 0.0 - 10.0 /100 WBCs. The refer ence range was not u sed to interpret th is result as normal/abnormal . NRBC x10^3 (test code <0.01 See_Comment [Auto mated = 1446677953) message] The s ystem which generated this result transmitted reference range : 10*3/?L. The reference range was not used to interpret this result as normal/abnormal . GRAN MAT (NEUT) % 78.4 % (test code = 770-8) IMM GRAN % (test code 0.50 % = 3743746954) LYMPH % (test code = 12.5 % 736-9) MONO % (test code = 6.1 % 5905-5) EOS % (test code = 2.1 % 713-8) BASO % (test code = 0.4 % 706-2) GRAN MAT x10^3(ANC) 6.43 10*3/uL 1.88-7.09 (test code = 0503275780) IMM GRAN x10^3 (test 0.04 10*3/uL 0-0.06 code = 7816215153) LYMPH x10^3 (test code 1.02 10*3/uL 1.32-3.29 L = 731-0) MONO x10^3 (test code 0.50 10*3/uL 0.33-0.92 = 742-7) EOS x10^3 (test code = 0.17 10*3/uL 0.03-0.39 711-2) BASO x10^3 (test code 0.03 10*3/uL 0.01-0.07 = 704-7) Lab Interpretation Abnormal (test code = 20132-9) [facility] HospitalVALPROIC ACID, [id number] 05:42:00 Test Item Value Reference Range Interpretation Comments Valproic Acid, Free <2.0 4-15 L (test code = 3922145680) KIM (test code = KIM) Toxic Range: ? Greater than 15 ug/mL Test developed and characteristics determined by [facility] Laboratory Services. Lab Interpretation Abnormal (test code = 81167-0) [facility] HospitalHAV ANTIBODY (IGG AND IGM)2020-02-03 04:20:00 Test Item Value Reference Range Interpretation Comments HAV Total (test code Positive = 1971859880) HAVT Semi-Quantitative (test code = 5769570766) KIM (test code = KIM) Indicates past or present infection with HAV or exposure to HAV due to vaccination. [facility] HospitalHEPATITIS B SURFACE [id number] 04:12:00 Test Item Value Reference Range Interpretation Comments HBsAB (test code = Negative 1022917136) HBsAb mIU/mL Semi-Quantitative (test code = 2315496447) KIM (test code = Interpretation: KIM) ?Hepatitis B Surface Antibody ? Negative - Patient is considered to be not immune to infection with HBV. ? ? Positive - Anti-HBs detected at greater than or equal to 12 mIU/mL. ?Patient is considered to be immune to infection with HBV. ? [facility] HospitalHCV [id number] 04:12:00 Test Item Value Reference Range Interpretation Comments HCV Ab (test code = 93613-2) Negative HCV Semi-Quantitative (test code = 39445-4) [facility] HospitalHEPATITIS B SURFACE [id number] 03:55:00 Test Item Value Reference Range Interpretation Comments HBsAg Semi-Quantitative (test code = Negative Negative 5195-3) [facility] HospitalPROCALCITONIN2020-10-21 03:54:00 Test Item Value Reference Range Interpretation Comments Procalcitonin (test 0.05 ng/mL <0.07 code = 2156596007) KIM (test code = KIM) INTERPRETATION OF [...] lung abscess/empyema. For further information please refer to:[email or web address] Lab Interpretation Normal (test code = 05035-7) [facility] HospitalGLYCOSYLATED HEMOGLOBIN (A1C)2020-02-02 22:47:00 Test Item Value Reference Range Interpretation Comments HGB A1C (test code = 4.5 % 4-6 4548-4) KIM (test code = KIM) %A1C (NGSP) Interpretation (ADA)4.8-5.6 ? ? Normal or (Non-Diabetic Range)5.7-6.4 ? ? Increased Risk (Pre-Diabetic)>6.5 ?Diabetes Indicated Lab Interpretation Normal (test code = 02822-8) [facility] HospitalVALPROIC ACID, [id number] 22:28:00 Test Item Value Reference Range Interpretation Comments VALPROIC A (test code = <10 50-100 L 2125584706) KIM (test code = KIM) Toxic Range: ?Greater than 100 ug/mL Lab Interpretation (test Abnormal code = 17026-6) [facility] HospitalLIPID PANEL (06537)(TOTAL CHOLESTEROL, TRIGLYCERIDES, HDL)2020-02-02 21:23:00 Test Item Value Reference Range Interpretation Comments CHOL (test code = 343 mg/dL 120-200 H 6071553915) HDL (test code = 87 mg/dL >50 7705637214) HDLC RATIO (test code = See_Comment [Au tomated message] 5253324798) The system [employer] generated this result transmit gulshan reference range : <=4.5. The refe rence range was not u sed to interpret th is result as normal/abnormal . TRIG (test code = 131 mg/dL 30-170 6787327002) LDL CHOL (test code = 230 mg/dL See_Comment H [Auto mated message] 53465-3) The system [employer] generated this result transmit gulshan reference range : <=160. The refe rence range was not u sed to interpret th is result as normal/abnormal . VLDL (test code = 26 mg/dL 5-60 3876046656) Lab Interpretation (test Abnormal code = 24603-2) [facility]PROT[facility]OMBIN [facility] / [id number] 21:16:00 Test Item Value Reference Range Interpretation Comments PROTIME PATIENT (test See_Comment [Auto mated message] code = 5964-2) The system [employer] generated this result transmitted ref erence range: 12.0 - 1 4.7 Seconds. The re ference range was not u sed to interpret this result as normal/abnor mal. INR (test code = 6301-6) Nor mal INR <1.1; Warfarin Therap eutic range 2.0 to 3. 0 or 2.5 to 3.5, dep ending upon the indica tions. Lab Interpretation (test Normal code = 68056-5) [facility] HospitalCREATINE [id number] 21:15:00 Test Item Value Reference Range Interpretation Comments CK (test code = 7537115144) 37 U/L 33-194 Lab Interpretation (test code = Normal 32246-5) [facility] HospitalLIPASE2020-10-20 12:34:00 Test Item Value Reference Range Interpretation Comments LIPASE (test code = 5772867875) 203 U/L 0-220 Lab Interpretation (test code = Normal 74362-0) [facility]. METABOLIC PANEL ([id number])2020-02-02 12:34:00 Test Item Value Reference Range Interpretation Comments NA (test code = 135 mmol/L 135-145 1709981921) K (test code = 3.5 mmol/L 3.5-5 1694031577) CL (test code = 103 mmol/L 98-108 6224407542) CO2 TOTAL (test code = 25 mmol/L 23-31 8097978967) AGAP (test code = 2-16 4490221424) BUN (test code = 8 mg/dL 7-23 5947609768) GLUCOSE (test code = 148 mg/dL 70-110 H 2360283472) CREATININE (test code = 0.55 mg/dL 0.5-1.04 3426349242) TOTAL BILI (test code = 1.2 mg/dL 0.1-1.1 H 2791741439) CALCIUM (test code = 9.4 mg/dL 8.6-10.6 9683869323) T PROTEIN (test code = 6.9 g/dL 6.3-8.2 5698566628) ALBUMIN (test code = 3.6 g/dL 3.5-5 1067981368) ALK PHOS (test code = 723 U/L 34-122 H 2263701442) ALTv (test code = 166 U/L 5-35 H 1742-6) AST(SGOT) (test code = 72 U/L 13-40 H 6451355319) eGFR Calculation mL/min/1.73m2 (Non-) (test code = 6142650669) eGFR Calculation mL/min/1.73m2 () (test code = 7702326280) KIM (test code = KIM) Association of [...] tests). Lab Interpretation Abnormal (test code = 58996-2) [facility] HospitalLITHIUM2020-10-20 12:32:00 Test Item Value Reference Range Interpretation Comments Ballard (test code = 0.4 mmol/L 0.6-1.2 L 7834146532) KIM (test code = KIM) Toxic Range: ? Greater than 1.2 mmol/L Lab Interpretation (test Abnormal code = 45310-7) [facility] HospitalPOWI GLUCOSE (AUTOMATED)2020-02-02 11:34:00 Test Item Value Reference Range Interpretation Comments POCT GLU (test code = 5029274977) 138 mg/dL 70-110 H Lab Interpretation (test code = Abnormal 47913-4) [facility] HospitalCOMP. METABOLIC PANEL ([id number])2020-02-02 10:51:00 Test Item Value Reference Range Interpretation Comments NA (test code = 129 mmol/L 135-145 L 7885440132) K (test code = 3.0 mmol/L 3.5-5 L 4636679345) CL (test code = 100 mmol/L 98-108 5375892410) CO2 TOTAL (test code = 22 mmol/L 23-31 L 5335118294) AGAP (test code = 2-16 5297508023) BUN (test code = 8 mg/dL 7-23 6143948629) GLUCOSE (test code = 632 mg/dL 70-110 HH 2629827332) CREATININE (test code = 0.54 mg/dL 0.5-1.04 5559832506) TOTAL BILI (test code = 1.0 mg/dL 0.1-1.8 1992680250) CALCIUM (test code = 7.9 mg/dL 8.6-10.6 L 8830782664) T PROTEIN (test code = 5.3 g/dL 6.3-8.2 L 6758966342) ALBUMIN (test code = 2.7 g/dL 3.5-5 L 3564648446) ALK PHOS (test code = 562 U/L 34-122 H 3099790750) ALTv (test code = 138 U/L 5-35 H 1742-6) AST(SGOT) (test code = 61 U/L 13-40 H 2802455147) eGFR Calculation mL/min/1.73m2 (Non-) (test code = 3723184400) eGFR Calculation mL/min/1.73m2 () (test code = 3671482009) KIM (test code = KIM) Association of [...] tests). Lab Interpretation Abnormal (test code = 05151-0) [facility] HospitalLIPASE2020-10-20 10:40:00 Test Item Value Reference Range Interpretation Comments LIPASE (test code = 0910383578) 140 U/L 0-220 Lab Interpretation (test code = Normal 55797-8) [facility] HospitalLITHIUM2020-10-20 10:37:00 Test Item Value Reference Range Interpretation Comments Ballard (test code = 0.5 mmol/L 0.6-1.2 L 5896829194) KIM (test code = KIM) Toxic Range: ? Greater than 1.2 mmol/L Lab Interpretation (test Abnormal code = 30957-7) [facility] HospitalCB WITH [id number] 09:57:00 Test Item Value Reference Range Interpretation [...] RDW-SD (test code = 47.2 fL 39-49.9 41781-2) RDW-CV (test code = 13.1 % 12-15.5 788-0) PLT (test code = See_Comment [Automated 777-3) message] The sy stem which generated this result transmitted reference range : 166 - 358 10*3/ ?L. The reference r luca was not used to interpret this result as normal/abnormal . MPV (test code = 9.7 fL 9.5-12.9 61285-4) NRBC/100 WBC (test See_Comment [Automat ed code = 4660813583) message] The system which generated this result transmitted reference range : 0.0 - 10.0 /100 WBCs. The refer ence range was not u sed to interpret th is result as normal/abnormal . NRBC x10^3 (test code <0.01 See_Comment [Auto mated = 3454409213) message] The s ystem which generated this result transmitted reference range : 10*3/?L. The reference range was not used to interpret this result as normal/abnormal . GRAN MAT (NEUT) % 78.6 % (test code = 770-8) IMM GRAN % (test code 0.50 % = 3589047689) LYMPH % (test code = 13.1 % 736-9) MONO % (test code = 5.5 % 5905-5) EOS % (test code = 2.0 % 713-8) BASO % (test code = 0.3 % 706-2) GRAN MAT x10^3(ANC) 5.18 10*3/uL 1.88-7.09 (test code = 3881723063) IMM GRAN x10^3 (test 0.03 10*3/uL 0-0.06 code = 4837278484) LYMPH x10^3 (test code 0.86 10*3/uL 1.32-3.29 L = 731-0) MONO x10^3 (test code 0.36 10*3/uL 0.33-0.92 = 742-7) EOS x10^3 (test code = 0.13 10*3/uL 0.03-0.39 711-2) BASO x10^3 (test code <0.03 0.01-0.07 = 704-7) Lab Interpretation Abnormal (test code = 68214-4) [facility] HospitalGRAM POSITIVE BLOOD PATHOGENS DNA [id number] 06:56:00 Test Item Value Reference Range Interpretation Comments Coagulase Negative Positive Negative, See A Staphylococcus (test Comment/Narrative code = 71153-9) KIM (test code = KIM) Coagulase negative [...] contact the Antimicrobial Stewardship Program with questions.Pager: ?[phone] Testing included eleven identification and three resistance marker targets. Lab Interpretation Abnormal (test code = 56541-4) [facility] HospitalLAB ONLY COVID [id number] 20:46:00COVID DMT InterpretationInterpretation/Recommendations\\nTests (PCR) for Active Infection [...] test is performed there is approximately a grh-rd-pxiiz chance the patient had been infected and [...] and IgG antibodies, this may be the explanation.[facility] LABORATORY SERVICESCOVID KruzcqvCIKQ-NnE-7 Rapid ID NOW (no units) ? ? Date ?Value ? 01/31/2020 ? Not Detected ? ? ? 08/21/2019 ? Not Detected ? [facility] SERVICESUn[facility] [id number] 19:37:00 Test Item Value Reference Range Interpretation Comments PH (test code = 7.32-7.42 L 4109455909) PCO2 SANDHYA (test code = See_Comment [Auto mated message] 0218583285) The system [employer] generated this result transmitted ref erence range: 41 - 51 mmHg. The reference r luca was not used to interpret this result as normal/abnor mal. PO2 SANDHYA (test code = See_Comment HH [Autom ated message] 1949208129) The system [employer] generated this result transmitted ref erence range: 25 - 40 mmHg. The reference r luca was not used to interpret this result as normal/abnor mal. HCO3 SANDHYA (test code = See_Comment L [Auto mated message] 3186714450) The system [employer] generated this result transmitted ref erence range: 24 - 28 mEq/L. The reference r luca was not used to interpret this result as normal/abnor mal. AC VBE(BEAKER) (test mEq/L code = 8106828914) Lab Interpretation (test Abnormal code = 17820-4) [facility] ABDOMEN [id number] 17:02:17 No sonographic findings to explain patient's [...] kidneys. No appreciable atrophyor cortical thinning. No hydronephrosis.[facility] HospitalUrine Kfpbgmt5666-88-97 16:35:00 Test Item Value Reference Range Interpretation Comments URINE CULTURE (test No aerobic growth (< code = 630-4) 1000 CFU/mL) [facility] HospitalDIFF CONSULT [id number] 15:41:00 MATURE LEUKOCYTES WITH REACTIVE LYMPHOCYTES, REACTIVE MONOCYTES AND OCCASIONAL TOXIC NEUTROPHILS. RARE HYPERSEGMENTED NEUTROPHILS. MACROCYTIC ANEMIA WITH POLYCHROMASIA AND POIKILOCYTOSIS INCLUDING RICK CELLS AND TARGET CELLS. THESE CHANGES ARE SUGGESTIVE OF EARLY VITAMIN B12 DEFICIENCY ANEMIA. AMPLEPLATELETS. [facility] HospitalPOCT GLUCOSE (AUTOMATED)2020-02-01 13:06:00 Test Item Value Reference Range Interpretation Comments POCT GLU (test code = 5480372996) 104 mg/dL 70-110 Lab Interpretation (test code = Normal 31021-5) [facility]. METABOLIC PANEL ([id number])2020-02-01 13:00:00 Test Item Value Reference Range Interpretation Comments NA (test code = 139 mmol/L 135-145 1258436765) K (test code = 4.1 mmol/L 3.5-5 3739587420) CL (test code = 112 mmol/L 98-108 H 2075429357) CO2 TOTAL (test code = 20 mmol/L 23-31 L 7795295927) AGAP (test code = 2-16 3757300694) BUN (test code = 16 mg/dL 7-23 5387316319) GLUCOSE (test code = 99 mg/dL 70-110 2942892811) CREATININE (test code = 0.85 mg/dL 0.5-1.04 2666945678) TOTAL BILI (test code = 1.3 mg/dL 0.1-1.1 H 3631686583) CALCIUM (test code = 8.6 mg/dL 8.6-10.6 0244686781) T PROTEIN (test code = 6.2 g/dL 6.3-8.2 L 0082606423) ALBUMIN (test code = 3.2 g/dL 3.5-5 L 6434809694) ALK PHOS (test code = 646 U/L 34-122 H 6688457668) ALTv (test code = 209 U/L 5-35 H 1742-6) AST(SGOT) (test code = 110 U/L 13-40 H 9497545739) eGFR Calculation mL/min/1.73m2 (Non-) (test code = 1671561531) eGFR Calculation mL/min/1.73m2 () (test code = 2427041690) KIM (test code = KIM) Association of [...] tests). Lab Interpretation Abnormal (test code = 73657-9) [facility] HospitalLIPASE2020-10-19 11:07:00 Test Item Value Reference Range Interpretation Comments LIPASE (test code = 8113013610) 353 U/L 0-220 H Lab Interpretation (test code = Abnormal 03274-8) [facility] HospitalLITHIUM2020-10-19 11:05:00 Test Item Value Reference Range Interpretation Comments Ballard (test code = 1.0 mmol/L 0.6-1.2 3414579729) KIM (test code = KIM) Toxic Range: ? Greater than 1.2 mmol/L Lab Interpretation (test Normal code = 55875-1) [facility] HospitalCB with [id number] 10:56:00 Test Item Value Reference Range Interpretation [...] RDW-SD (test code = 49.7 fL 39-49.9 58632-8) RDW-CV (test code = 13.2 % 12-15.5 788-0) PLT (test code = See_Comment L [Automated 777-3) message] The sy stem which generated this result transmitted reference range : 166 - 358 10*3/ ?L. The reference r luca was not used to interpret this result as normal/abnormal . MPV (test code = 9.7 fL 9.5-12.9 19264-5) NRBC/100 WBC (test See_Comment [Automat ed code = 0447250813) message] The system which generated this result transmitted reference range : 0.0 - 10.0 /100 WBCs. The refer ence range was not u sed to interpret th is result as normal/abnormal . NRBC x10^3 (test code <0.01 See_Comment [Auto mated = 0432302856) message] The s ystem which generated this result transmitted reference range : 10*3/?L. The reference range was not used to interpret this result as normal/abnormal . GRAN MAT (NEUT) % 79.3 % (test code = 770-8) IMM GRAN % (test code 0.40 % = 6222136249) LYMPH % (test code = 11.4 % 736-9) MONO % (test code = 6.1 % 5905-5) EOS % (test code = 2.6 % 713-8) BASO % (test code = 0.2 % 706-2) GRAN MAT x10^3(ANC) 4.30 10*3/uL 1.88-7.09 (test code = 2743293187) IMM GRAN x10^3 (test <0.03 0-0.06 code = 9200770860) LYMPH x10^3 (test code 0.62 10*3/uL 1.32-3.29 L = 731-0) MONO x10^3 (test code 0.33 10*3/uL 0.33-0.92 = 742-7) EOS x10^3 (test code = 0.14 10*3/uL 0.03-0.39 711-2) BASO x10^3 (test code <0.03 0.01-0.07 = 704-7) Lab Interpretation Abnormal (test code = 59280-2) [facility] HospitalAD OR PERICO ONLY - [id number] 09:27:00 Test Item Value Reference Range Interpretation Comments RPR (Qualitative) (test code = Nonreactive Nonreactive 94877-2) Lab Interpretation (test code = Normal 26636-4) [facility] HospitalVITAMIN B12, [id number] 06:47:00 Test Item Value Reference Range Interpretation Comments VIT B12 (test code = 257 pg/mL 240-930 4519994467) KIM (test code = KIM) Biotin has been reported to cause a positive bias, interpret results relative to patient's use of biotin. Lab Interpretation (test Normal code = 94800-4) [facility] HospitalFOLATE2020-10-19 06:46:00 Test Item Value Reference Range Interpretation Comments FOLATE SER (test code = 15.7 ng/mL 3-20 Biot in has been 3272541004) reported to cau se a positive bias, interpret resul ts relative to patient's use o f biotin. Lab Interpretation (test Normal code = 88765-1) [facility] HospitalOSMOLALITY [id number] 05:47:00 Test Item Value Reference Range Interpretation Comments OSMOLALITY (test code = See_Comment [Au tomated message] 7152382555) The system [employer] generated this result transmitted ref erence range: 278 - 30 5 mOsm/kg. The re ference range was not u sed to interpret this result as normal/abnor mal. Lab Interpretation (test Normal code = 51382-1) [facility] HospitalFERRITIN [id number] 01:01:00 Test Item Value Reference Range Interpretation Comments FERRITIN (test code = 234.0 ng/mL 11-264 7549411536) KIM (test code = KIM) Biotin has been reported to cause a negative bias, interpret results relative to patient's use of biotin. Lab Interpretation (test Normal code = 13076-3) [facility] HospitalTHYROID STIMULATING [id number] 23:14:00 Test Item Value Reference Range Interpretation Comments TSH (test code = See_Comment Biotin has been 3386785805) reported to cau se a negative bias, interpret resul ts relative to pat ient's use of biotin. [Automated mess age] The system [employer] generated this result transmitted ref erence range: 0.45 - 4 .70 mIU/L. The refe rence range was not u sed to interpret this result as normal/abnor mal. Lab Interpretation (test Normal code = 85431-8) [facility] HospitalIRON [id number] 22:39:00 Test Item Value Reference Range Interpretation Comments IRON (test code = 68 ug/dL 50-160 Slight hem olysis 7649221185) TIBC (test code = 271 ug/dL 250-410 1057164319) % FE SAT (test code = 25 % 20-50 9665350829) Lab Interpretation (test Normal code = 07772-3) [facility] HospitalRETICULOCYTES [id number] 21:52:00 Test Item Value Reference Range Interpretation Comments RETIC Count Automated 2.17 % 0.51-1.9 H (test code = 2584016054) RETIC Absolute Count See_Comment [Autom ated message] (test code = 5878397331) The system which generated this result transmitted ref erence range: 0.0230 - 0.0950 10*6/?L. The reference range was not used to int erpret this result as normal/abnormal . IRF % (test code = 9.20 % 2.1-12.6 5882941777) RETIC-HE (test code = 35.1 pg 28.1-35.8 3688814969) Lab Interpretation (test Abnormal code = 94693-9) [facility] HospitalABG+COOX+NA+K+GLU+CA2+2020-01-31 20:41:00 Test Item Value Reference Range Interpretation Comments PH (test code = 2) 7.35-7.45 L PCO2 (test code = See_Comment H [Automat ed message] 0242173989) The system [employer] generated this result transmit gulshan reference range : 35 - 45 mmHg. The reference range was not used to interpret this result as normal/abnormal . PO2 (test code = See_Comment L [Automated message] 0759045884) The system [employer] generated this result transmit gulshan reference range : 80 - 100 mmHg. The reference range was not used to interpret this result as normal/abnormal . HCO3 (test code = See_Comment L [Automate d message] 5676809439) The system [employer] generated this result transmit gulshan reference range : 22 - 26 mEq/L. The reference range was not used to interpret this result as normal/abnormal . BE (test code = See_Comment L [Automated message] 4175061192) The system [employer] generated this result transmit gulshan reference range : -3.0 - 3.0 mEq/ L. The reference r luca was not used to interpret this result as normal/abnormal . THB (test code = 9.8 g/dL 12-16 L 6909760466) %O2HB (test code = 94.0 % 94-99 8119543984) %COHB ART (test code = 0.0 % 0-1.5 9038265070) %METHB ART (test code = 0.3 % 0.4-1.5 L 0099486804) VOL%O2 ART (test code = 13.0 % 15-23 L 7130487532) NA (test code = 137 mmol/L 135-145 2336846016) K+ (test code = 4.0 mmol/L 3.5-5 1923435812) AC CA IONZ (test code = 5.10 mg/dL 4.5-5.3 2546022945) GLUCOSE (test code = 100 mg/dL 70-110 7872092417) Lab Interpretation Abnormal (test code = 57708-5) [facility] HospitalVALPROIC ACID, [id number] 19:51:00 Test Item Value Reference Range Interpretation Comments VALPROIC A (test code = <10 50-100 L 2536931340) KIM (test code = KIM) Toxic Range: ?Greater than 100 ug/mL Lab Interpretation (test Abnormal code = 74438-2) [facility] HospitalACETAMINOPHEN2020-10-18 19:42:00 Test Item Value Reference Range Interpretation Comments ACETAMINOP (test code = <10.0 10-30 L 4868921871) KIM (test code = KIM) Toxic: Greater than 200 ug/mL @ 4 hour post ingestion or greater than 50 ug/mL @ 12 hour post ingestion Lab Interpretation (test Abnormal code = 44186-8) [facility] HospitalLITHIUM2020-10-18 19:41:00 Test Item Value Reference Range Interpretation Comments Ballard (test code = 1.4 mmol/L 0.6-1.2 H 3902652090) KIM (test code = KIM) Toxic Range: ? Greater than 1.2 mmol/L Lab Interpretation (test Abnormal code = 21482-2) [facility] HospitalSALICYLATE2020-10-18 19:41:00 Test Item Value Reference Range Interpretation Comments SALICYLATE (test code <10 mg/L = 9699958593) KIM (test code = KIM) Therapeutic Range: ? Analgesic and Antipyretic Use ? 20-100 mg/L ? ? Anti-Inflammatory Use ? 100-250 mg/L Toxic Range: ? Greater than 300 mg/L [facility] 1 Olmq2153-42-05 17:46:20Impression: No acute cardiopulmonary disease. RL: ?2601 AFC: ?85126 Chest, one view History: ?AMS . Altered state of awareness Ordering Physician: WALE RON Findings: The lungs are clear without focal pneumonic consolidation,pleural effusion, or pneumothorax. ?The heart size is normal. ?Themediastinal contours are normal. ?No pulmonary edema. Several scatteredcalcified granulomas noted within both lungs. [facility], Radiant Results Inft User - 01/31/2020 12:47 PM CDTChest, one viewHistory: AMS . Altered state of awarenessOrdering Physician: KIRSTIN RON Findings: The lungs are clear without focal pneumonic consolidation,pleural effusion, or pneumothorax. The heart size is normal. Themediastinal contours are normal. No pulmonary edema. Several scatteredcalcified granulomas noted within both lungs.IMPRESSIONImpression: No acute cardiopulmonary disease. RL: 2601AFC: [id number] signed by Gatito Saul MD at 01/31/2020 12:46 PMUnSt. David's Medical CenterAbdomen 1 Lkze5699-37-32 17:42:04 1. Nonobstructive intestinal bowel gas pattern. RL: ?2601 AFC: ?32201 CLINICAL INFORMATION: Abdominal pain. Altered state of [...] bowel.IMPRESSION1. Nonobstructive intestinal bowel gas pattern.RL: 2601AFC: [id number] signed by Gatito Saul MD at 01/31/2020 12:42 PMUnSt. David's Medical CenterETHANOL2020-10-18 17:40:00 Test Item Value Reference Range Interpretation Comments ALCOHOL (test code = <10 mg/dL 4919615232) KIM (test code = KIM) <10 Cixjbmtp72-725 Toxic>100 Depression of CORE SHAPER>400 Fatalities Reported [facility] HospitalCREATINE [id number] 17:38:00 Test Item Value Reference Range Interpretation Comments CK (test code = 7369218646) 46 U/L 33-194 Slight hemolysis Lab Interpretation (test code Normal = 14545-1) [facility] HospitalCT Head W/O Nzqkncoi6484-28-91 17:05:24 Impression: 1. ?No acute intracranial process. [...] No acute intracranial process.2. Small right mastoid effusion.[facility] / [facility] - DRUG SCREEN [id number] 16:57:00 Test Item Value Reference Range Interpretation Comments BENZO U (test code = Presumptive Negative A 3301771986) Positive SLIM U (test code = Negative Negative 7631761669) AMPHET (test code = Negative Negative 3149033607) THC (test code = Negative Negative 6488373171) METHADONE (test code Negative Negative = 4889027863) Meth U (test code = Negative Negative 0779245833) OPIATES (test code = Negative Negative 4889982511) Cocaine Metabolite Negative Negative (test code = 3404747686) PROPOXY (test code = Negative Negative 6965188366) Tric U (test code = Presumptive Negative A Confirma tion of 8264001968) Positive Presumptive Positive TCA result requires physician order and this will b e sent to referen ce lab. PCP (test code = Negative Negative 2449908654) OXYCOD (test code = Negative Negative 4315077522) KIM (test code = Urine Drug Cutoff [...] testing). Lab Interpretation Abnormal (test code = 79266-2) [facility] HospitalUrinalysis2020-10-18 16:54:00 Test Item Value Reference Range Interpretation Comments APPEARANCE (test code = Hazy Clear A 1129874290) COLOR (test code = Romelia Yellow A 1736055630) PH (test code = 4.8-8.0 3075346719) SP GRAVITY (test code = 1.003-1.030 3022524520) GLU U QUAL (test code = Normal Normal 8782321476) BLOOD (test code = Negative Negative 1598288273) KETONES (test code = Negative Negative 3669130503) PROTEIN (test code = 30 mg/dL Negative A 2887-8) UROBILIN (test code = 4.0 mg/dL Normal A 6946113545) BILIRUBIN (test code = Negative Negative 4370859039) NITRITE (test code = Negative Negative 3598512386) LEUK NICHOLE (test code = 25/uL Negative A 4233649167) RBC/HPF (test code = See_Comment [Autom ated message] 0778451855) The system [employer] generated this result transmit gulshan reference range : 0 - 3 HPF. The refe rence range was not u sed to interpret th is result as normal/abnormal . WBC/HPF (test code = See_Comment H [Autom ated message] 0705937380) The system [employer] generated this result transmit gulshan reference range : 0 - 5 HPF. The refe rence range was not u sed to interpret th is result as normal/abnormal . BACTERIA (test code = Few Negative A 7448327631) MUCOUS (test code = Moderate Negative LPF A 8647314755) SQ EPITH (test code = HPF 3907471849) HYAL CAST (test code = See_Comment H [Aut omated message] 5497808873) The system [employer] generated this result transmit gulshan reference range : <=2 LPF. The refere nce range was not u sed to interpret th is result as normal/abnormal . GRAN CASTS (test code = See_Comment H [Au tomated message] 2100443405) The system [employer] generated this result transmit gulshan reference range : <=1 LPF. The refere nce range was not u sed to interpret th is result as normal/abnormal . Lab Interpretation (test Abnormal code = 35384-2) [facility] HospitalCOVID-19 (ID NOW RAPID TESTING)2020-01-31 16:39:00 Test Item Value Reference Range Interpretation Comments SARS-CoV-2 Rapid ID NOW Not Detected Not Detected (test code = 49317-0) KIM (test code = KIM) ID NOW COVID-19 Assay is an isothermal nucleic acid amplification test intended for the qualitative detection of nucleic acid from SARS-CoV-2 viral RNA in nasopharyngeal (FOUNDER AND CHIEF TECHNICAL OFFICER) specimens. It is used under Emergency Use [...] indicated. Lab Interpretation Normal (test code = 58659-3) [facility] [id number] 16:38:00 Test Item Value Reference Range Interpretation Comments TROPONIN I (test <0.012 See_Comment [Automated code = 0068594721) message] The system which generated this result [...] ? Lab Interpretation Normal (test code = 18772-2) [facility] HospitalN-TERMINAL [id number] 16:34:00 Test Item Value Reference Range Interpretation Comments NT-proBNP (test code 283 pg/mL See_Comment H [Autom ated = 3165476381) message] The system which generated this result transmitted reference range : <=125. The reference range was not used to interpret this result as normal/abnormal . KIM (test code = KIM) Biotin has been reported to cause a negative bias, interpret results relative to patient's use of biotin. Lab Interpretation Abnormal (test code = 61460-2) [facility] (NA, K, CL, CO2, GLUCOSE, BUN, CREATININE, CA)2020-01-31 16:26:00 Test Item Value Reference Range Interpretation Comments NA (test code = 134 mmol/L 135-145 L 0457768625) K (test code = 4.9 mmol/L 3.5-5 5007661119) CL (test code = 107 mmol/L 98-108 3123542900) CO2 TOTAL (test code = 19 mmol/L 23-31 L 3665932976) AGAP (test code = 2-16 7784950457) BUN (test code = 30 mg/dL 7-23 H 6542305415) GLUCOSE (test code = 106 mg/dL 70-110 4108780699) CREATININE (test code = 2.21 mg/dL 0.5-1.04 H 7853156090) CALCIUM (test code = 9.5 mg/dL 8.6-10.6 9938119438) eGFR Calculation mL/min/1.73m2 (Non-) (test code = 7707551387) eGFR Calculation mL/min/1.73m2 () (test code = 9909630033) KIM (test code = KIM) Association of [...] tests). Lab Interpretation Abnormal (test code = 46604-7) [facility]Hep[facility] (ALB, T.PRO, BILI T, BU/BC, ALT, AST, ALK PHOS)2020-01-31 16:26:00 Test Item Value Reference Range Interpretation Comments TOTAL BILI (test code = 0104978565) 1.5 mg/dL 0.1-1.1 H BILI UNCON (test code = 7508252699) 0.4 mg/dL 0.1-1.1 BILI CONJ (test code = 3566339693) 0.0 mg/dL 0-0.3 T PROTEIN (test code = 2268398174) 8.0 g/dL 6.3-8.2 ALBUMIN (test code = 0311189754) 4.0 g/dL 3.5-5 ALK PHOS (test code = 6132519677) 714 U/L 34-122 H ALTv (test code = 1742-6) 352 U/L 5-35 H AST(SGOT) (test code = 0226701212) 256 U/L 13-40 H Lab Interpretation (test code = Abnormal 41439-2) [facility] HospitalLipase [id number] 16:26:00 Test Item Value Reference Range Interpretation Comments LIPASE (test code = 4347330318) 410 U/L 0-220 H Lab Interpretation (test code = Abnormal 64068-8) [facility] HospitalAMMONIA, [id number] 16:25:00 Test Item Value Reference Range Interpretation Comments AMMONIA (test code = 32 umol/L 9-33 Slight hemolysis 9474753134) Lab Interpretation (test Normal code = 09153-4) [facility] HospitalCBC with [id number] 16:13:00 Test Item Value Reference Range Interpretation [...] (test code = 51.4 fL 39-49.9 H 66331-3) RDW-CV (test code = 13.7 % 12-15.5 788-0) PLT (test code = See_Comment [Automated 777-3) message] The sy stem which generated this result transmitted reference range : 166 - 358 10*3/ ?L. The reference r luca was not used to interpret this result as normal/abnormal . MPV (test code = 10.3 fL 9.5-12.9 89395-7) NRBC/100 WBC (test See_Comment [Automat ed code = 8864675908) message] The system which generated this result transmitted reference range : 0.0 - 10.0 /100 WBCs. The refer ence range was not u sed to interpret th is result as normal/abnormal . NRBC x10^3 (test code <0.01 See_Comment [Auto mated = 3077320740) message] The s ystem which generated this result transmitted reference range : 10*3/?L. The reference range was not used to interpret this result as normal/abnormal . GRAN MAT (NEUT) % 77.1 % (test code = 770-8) IMM GRAN % (test code 0.40 % = 2803905674) LYMPH % (test code = 12.2 % 736-9) MONO % (test code = 5.7 % 5905-5) EOS % (test code = 4.3 % 713-8) BASO % (test code = 0.3 % 706-2) GRAN MAT x10^3(ANC) 5.97 10*3/uL 1.88-7.09 (test code = 1172889828) IMM GRAN x10^3 (test 0.03 10*3/uL 0-0.06 code = 0177583571) LYMPH x10^3 (test code 0.94 10*3/uL 1.32-3.29 L = 731-0) MONO x10^3 (test code 0.44 10*3/uL 0.33-0.92 = 742-7) EOS x10^3 (test code = 0.33 10*3/uL 0.03-0.39 711-2) BASO x10^3 (test code <0.03 0.01-0.07 = 704-7) Lab Interpretation Abnormal (test code = 89247-1) [facility] HospitalLactic Acid Whole [id number] 16:03:00 Test Item Value Reference Range Interpretation Comments LACTIC ACID (test code = 1.03 mmol/L 0.3-2.6 2525896833) Lab Interpretation (test code = Normal 17196-2) [facility] HospitalCT ABDOMEN PELVIS W [id number] 23:00:141. ?Mild circumferential urinary bladder wall thickening [...] the pancreatic duct, unchanged since February2019. Recommend [facility]CP[facility] 2019-[facility]-18 21:36:00 Test Item Value Reference Range Interpretation Comments TROPONIN I (test <0.012 See_Comment [Automated code = 4222129962) message] The system which generated this result [...] ? Lab Interpretation Normal (test code = 35625-3) [facility] HospitalUrinalysis2020-09-04 21:30:00 Test Item Value Reference Range Interpretation Comments APPEARANCE (test code = Clear Clear 8195007961) COLOR (test code = Yellow Yellow 9190948353) PH (test code = 4.8-8.0 4472284971) SP GRAVITY (test code = 1.003-1.030 4853910355) GLU U QUAL (test code = Normal Normal 8655766989) BLOOD (test code = Negative Negative 9377680515) KETONES (test code = Negative Negative 3465239960) PROTEIN (test code = Negative Negative 2887-8) UROBILIN (test code = 4.0 mg/dL Normal A 7073464673) BILIRUBIN (test code = Negative Negative 5556698177) NITRITE (test code = Negative Negative 0804110130) LEUK NICHOLE (test code = Negative Negative 3953177766) RBC/HPF (test code = See_Comment [Autom ated message] 8043663203) The system [employer] generated this result transmit gulshan reference range : 0 - 3 HPF. The refe rence range was not u sed to interpret th is result as normal/abnormal . WBC/HPF (test code = See_Comment [Autom ated message] 1192226038) The system [employer] generated this result transmit gulshan reference range : 0 - 5 HPF. The refe rence range was not u sed to interpret th is result as normal/abnormal . BACTERIA (test code = Few Negative A 3426470949) MUCOUS (test code = Slight Negative LPF A 6023081183) SQ EPITH (test code = HPF 9580763027) HYAL CAST (test code = See_Comment [Aut omated message] 6652131269) The system [employer] generated this result transmit gulshan reference range : <=2 LPF. The refere nce range was not u sed to interpret th is result as normal/abnormal . Lab Interpretation (test Abnormal code = 96082-2) [facility] with [id number] 21:29:00 Test Item Value Reference Range Interpretation [...] (test code = 54.6 fL 39-49.9 H 55085-1) RDW-CV (test code = 14.9 % 12-15.5 788-0) PLT (test code = See_Comment L [Automated 777-3) message] The sy stem which generated this result transmitted reference range : 166 - 358 10*3/ ?L. The reference r luca was not used to interpret this result as normal/abnormal . MPV (test code = 9.5 fL 9.5-12.9 19954-7) IPF % (test code = 1.5 % 1.3-7.7 Platelet count 9537417691) measured by fluorescence method. NRBC/100 WBC (test See_Comment [Automat ed code = 3190590688) message] The system which generated this result transmitted reference range : 0.0 - 10.0 /100 WBCs. The refer ence range was not u sed to interpret th is result as normal/abnormal . NRBC x10^3 (test code <0.01 See_Comment [Auto mated = 1580487540) message] The s ystem which generated this result transmitted reference range : 10*3/?L. The reference range was not used to interpret this result as normal/abnormal . GRAN MAT (NEUT) % 64.0 % (test code = 770-8) IMM GRAN % (test code 1.00 % = 2217144983) LYMPH % (test code = 22.5 % 736-9) MONO % (test code = 11.0 % 5905-5) EOS % (test code = 1.0 % 713-8) BASO % (test code = 0.5 % 706-2) GRAN MAT x10^3(ANC) 2.61 10*3/uL 1.88-7.09 (test code = 2456370796) IMM GRAN x10^3 (test 0.04 10*3/uL 0-0.06 code = 0163935376) LYMPH x10^3 (test code 0.92 10*3/uL 1.32-3.29 L = 731-0) MONO x10^3 (test code 0.45 10*3/uL 0.33-0.92 = 742-7) EOS x10^3 (test code = 0.04 10*3/uL 0.03-0.39 711-2) BASO x10^3 (test code <0.03 0.01-0.07 = 704-7) Lab Interpretation Abnormal (test code = 57450-3) [facility] Metabolic Panel (NA, K, CL, CO2, GLUCOSE, BUN, CREATININE, CA)2019-12-18 21:25:00 Test Item Value Reference Range Interpretation Comments NA (test code = 138 mmol/L 135-145 5763003769) K (test code = 4.8 mmol/L 3.5-5 8838725596) CL (test code = 104 mmol/L 98-108 2279194262) CO2 TOTAL (test code = 27 mmol/L 23-31 1967816862) AGAP (test code = 2-16 5778022000) BUN (test code = 12 mg/dL 7-23 1463522443) GLUCOSE (test code = 101 mg/dL 70-110 8464689035) CREATININE (test code 0.70 mg/dL 0.5-1.04 = 0481103023) CALCIUM (test code = 9.3 mg/dL 8.6-10.6 8980944179) eGFR Calculation mL/min/1.73m2 (Non-) (test code = 3799678308) eGFR Calculation mL/min/1.73m2 () (test code = 7831503605) KIM (test code = KIM) Association of [...] or urine or abnormalities in imaging tests). [facility]Hep[facility] (ALB, T.PRO, BILI T, BU/BC, ALT, AST, ALK PHOS)2019-12-18 21:25:00 Test Item Value Reference Range Interpretation Comments TOTAL BILI (test code = 1967353239) 1.0 mg/dL 0.1-1.1 BILI UNCON (test code = 6195120705) 0.6 mg/dL 0.1-1.1 BILI CONJ (test code = 3907110317) 0.0 mg/dL 0-0.3 T PROTEIN (test code = 1160591879) 7.8 g/dL 6.3-8.2 ALBUMIN (test code = 8751738943) 4.3 g/dL 3.5-5 ALK PHOS (test code = 0782606370) 580 U/L 34-122 H ALTv (test code = 1742-6) 199 U/L 5-35 H AST(SGOT) (test code = 8782132074) 215 U/L 13-40 H Lab Interpretation (test code = Abnormal 23680-1) [facility] HospitalLipase [id number] 21:25:00 Test Item Value Reference Range Interpretation Comments LIPASE (test code = 5438700640) 267 U/L 0-220 H Lab Interpretation (test code = Abnormal 23890-1) [facility] HospitalXR CHEST 1 VW [id number] 02:17:38 No findings suggestive of COVID-19 pneumonia. Disclaimer: Generally, the findings on chest imaging in COVID-19 are notspecific, and overlap with other infections, including influenza, H1N1,SARS and MERS.According to the Centers for Disease Control (CDC) and the [place] [employer], viral testing remains the only [...] Centers for Disease Control (CDC) and the [place] [employer], viraltesting remains the only specific method of diagnosiseven if CXR or CT findings are suggestive of COVID-19. Preliminary Report Dictated by Resident: Abe Vasquez, Ritchie Hollins MD., have reviewed this study and agree with the abovereport.[facility] CORONAVIRUS COVID-19 [id number] 02:11:00 Test Item Value Reference Range Interpretation Comments SARS-CoV-2 (test code = Not Detected Not Detected 46290-2) KIM (test code = KIM) ID NOW COVID-19 Assay is an isothermal nucleic acid amplification test intended for the qualitative detection of nucleic acid from SARS-CoV-2 viral RNA in nasopharyngeal (FOUNDER AND CHIEF TECHNICAL OFFICER) specimens. It is used under Emergency Use [...] indicated. Lab Interpretation Normal (test code = 62712-2) [facility] HospitalTROPONIN [id number] 01:42:00 Test Item Value Reference Range Interpretation Comments TROPONIN I (test <0.012 See_Comment [Automated code = 6640797516) message] The system which generated this result [...] ? Lab Interpretation Normal (test code = 00736-3) [facility]. METABOLIC PANEL (00848)2019-08-22 01:30:00 Test Item Value Reference Range Interpretation Comments NA (test code = 142 mmol/L 135-145 3333711102) K (test code = 4.1 mmol/L 3.5-5 8271579516) CL (test code = 106 mmol/L 98-108 7335547861) CO2 TOTAL (test code = 28 mmol/L 23-31 2910353065) AGAP (test code = 2-16 6475250565) BUN (test code = 16 mg/dL 7-23 4487721918) GLUCOSE (test code = 141 mg/dL 70-110 H 9853173752) CREATININE (test code = 0.75 mg/dL 0.5-1.04 1592706780) TOTAL BILI (test code = 0.8 mg/dL 0.1-1.8 0925179088) CALCIUM (test code = 9.6 mg/dL 8.6-10.6 9684749777) T PROTEIN (test code = 7.8 g/dL 6.3-8.2 0108971090) ALBUMIN (test code = 4.1 g/dL 3.5-5 6056506405) ALK PHOS (test code = 664 U/L 34-122 H 7387470778) ALTv (test code = 82 U/L 5-35 H 1742-6) AST(SGOT) (test code = 111 U/L 13-40 H 5557881979) eGFR Calculation mL/min/1.73m2 (Non-) (test code = 4061463305) eGFR Calculation mL/min/1.73m2 () (test code = 6246720515) KIM (test code = KIM) Association of [...] tests). Lab Interpretation Abnormal (test code = 39243-3) [facility] HospitalLIPASE, [id number] 01:30:00 Test Item Value Reference Range Interpretation Comments LIPASE (test code = 3076384910) 87 U/L 0-220 Lab Interpretation (test code = Normal 67799-5) [facility] HospitalaPTT2020-05-09 01:29:00 Test Item Value Reference Range Interpretation Comments APTT Patient (test See_Comment [Automat ed code = 3173-2) message] The system which generated this result transmitted reference range : 23 - 38 Seconds . The reference range was not used to interpr et this result as normal/abnormal . KIM (test code = KIM) The [facility] patient population mean normal value for aPTT is 30 seconds. Lab Interpretation Normal (test code = 29134-7) [facility] HospitalPROTHROMBIN TIME / [id number] 01:27:00 Test Item Value Reference Range Interpretation Comments PROTIME PATIENT (test See_Comment [Auto mated message] code = 5964-2) The system [employer] generated this result transmitted ref erence range: 12.0 - 1 4.7 Seconds. The re ference range was not u sed to interpret this result as normal/abnor mal. INR (test code = 6301-6) Nor mal INR <1.1; Warfarin Therap eutic range 2.0 to 3. 0 or 2.5 to 3.5, dep ending upon the indica tions. Lab Interpretation (test Normal code = 31571-1) [facility] HospitalURINALYSIS2020-05-09 01:25:00 Test Item Value Reference Range Interpretation Comments APPEARANCE (test code = Hazy Clear A 8715070088) COLOR (test code = Romelia Yellow A 2660612331) PH (test code = 4.8-8.0 3496650760) SP GRAVITY (test code = 1.003-1.030 2667701698) GLU U QUAL (test code = Normal Normal 7711640736) BLOOD (test code = Negative Negative 1610136961) KETONES (test code = Negative Negative 8330868046) PROTEIN (test code = 30 mg/dL Negative A 2887-8) UROBILIN (test code = 4.0 mg/dL Normal A 3375660724) BILIRUBIN (test code = Negative Negative 8054445969) NITRITE (test code = Positive Negative A 0315516334) LEUK NICHOLE (test code = 500/uL Negative A 3713484212) RBC/HPF (test code = See_Comment H [Autom ated message] 9077724275) The system [employer] generated this result transmit gulshan reference range : 0 - 3 HPF. The refe rence range was not u sed to interpret th is result as normal/abnormal . WBC/HPF (test code = See_Comment H [Autom ated message] 7237381801) The system [employer] generated this result transmit gulshan reference range : 0 - 5 HPF. The refe rence range was not u sed to interpret th is result as normal/abnormal . BACTERIA (test code = Many Negative A 3755339118) MUCOUS (test code = Moderate Negative LPF A 4538211974) SQ EPITH (test code = HPF 7213640302) Lab Interpretation (test Abnormal code = 83896-3) [facility] WITH [id number] 01:18:00 Test Item Value Reference Range Interpretation [...] RDW-SD (test code = 44.3 fL 39-49.9 76461-0) RDW-CV (test code = 12.6 % 12-15.5 788-0) PLT (test code = See_Comment [Automated 777-3) message] The sy stem which generated this result transmitted reference range : 166 - 358 10*3/ ?L. The reference r luca was not used to interpret this result as normal/abnormal . MPV (test code = 9.1 fL 9.5-12.9 L 42847-8) NRBC/100 WBC (test See_Comment [Automat ed code = 2558955314) message] The system which generated this result transmitted reference range : 0.0 - 10.0 /100 WBCs. The refer ence range was not u sed to interpret th is result as normal/abnormal . NRBC x10^3 (test code <0.01 See_Comment [Auto mated = 6338325174) message] The s ysteSmarp. which generated this result transmitted reference range : 10*3/?L. The reference range was not used to interpret this result as normal/abnormal . GRAN MAT (NEUT) % 71.0 % (test code = 770-8) IMM GRAN % (test code 1.70 % = 2319257193) LYMPH % (test code = 16.1 % 736-9) MONO % (test code = 9.8 % 5905-5) EOS % (test code = 1.1 % 713-8) BASO % (test code = 0.3 % 706-2) GRAN MAT x10^3(ANC) 2.47 10*3/uL 1.88-7.09 (test code = 5970480069) IMM GRAN x10^3 (test 0.06 10*3/uL 0-0.06 code = 5599691020) LYMPH x10^3 (test code 0.56 10*3/uL 1.32-3.29 L = 731-0) MONO x10^3 (test code 0.34 10*3/uL 0.33-0.92 = 742-7) EOS x10^3 (test code = 0.04 10*3/uL 0.03-0.39 711-2) BASO x10^3 (test code <0.03 0.01-0.07 = 704-7) Lab Interpretation Abnormal (test code = 54934-3) [facility] HospitalRajivs[facility] hospitalbrittany [id number] 23:39:00 Test Item Value Reference Range Interpretation Comments TROPONIN I (test 0.005 ng/mL See_Comment [Automated code = 7467274556) message] The system which generated this result [...] ? Lab Interpretation Normal (test code = 78603-4) [facility] HospitalBasi Metabolic Panel (NA, K, CL, CO2, GLUCOSE, BUN, CREATININE, CA)2019-06-25 23:27:00 Test Item Value Reference Range Interpretation Comments NA (test code = 138 mmol/L 135-145 7591521252) K (test code = 4.3 mmol/L 3.5-5 2055428664) CL (test code = 103 mmol/L 98-108 6148495746) CO2 TOTAL (test code = 27 mmol/L 23-31 2364098647) AGAP (test code = 2-16 2769837038) BUN (test code = 16 mg/dL 7-23 9525497788) GLUCOSE (test code = 106 mg/dL 70-110 8466333124) CREATININE (test code 0.66 mg/dL 0.5-1.04 = 6469868589) CALCIUM (test code = 9.1 mg/dL 8.6-10.6 8031550382) eGFR Calculation mL/min/1.73m2 (Non-) (test code = 5699815128) eGFR Calculation mL/min/1.73m2 () (test code = 1713289896) KIM (test code = KIM) Association of [...] or urine or abnormalities in imaging tests). [facility] HospitalLipase [id number] 23:27:00 Test Item Value Reference Range Interpretation Comments LIPASE (test code = 0980844596) 55 U/L 0-220 Lab Interpretation (test code = Normal 52043-5) [facility] HospitalHepatic Function Panel (ALB, T.PRO, BILI T, BU/BC, ALT, AST, ALK PHOS)2019-06-25 23:27:00 Test Item Value Reference Range Interpretation Comments TOTAL BILI (test code = 1461213139) 1.0 mg/dL 0.1-1.1 BILI UNCON (test code = 1362869741) 0.2 mg/dL 0.1-1.1 BILI CONJ (test code = 7885800445) 0.0 mg/dL 0-0.3 T PROTEIN (test code = 4936909746) 7.8 g/dL 6.3-8.2 ALBUMIN (test code = 8678975692) 4.3 g/dL 3.5-5 ALK PHOS (test code = 5428203743) 622 U/L 34-122 H ALTv (test code = 1742-6) 126 U/L 5-35 H AST(SGOT) (test code = 4019147624) 180 U/L 13-40 H Lab Interpretation (test code = Abnormal 71226-8) [facility] WITH [id number] 23:23:00 Test Item Value Reference Range Interpretation [...] (test code = 51.3 fL 39-49.9 H 33336-5) RDW-CV (test code = 14.9 % 12-15.5 788-0) PLT (test code = See_Comment [Automated 777-3) message] The sy stem which generated this result transmitted reference range : 166 - 358 10*3/ ?L. The reference r luca was not used to interpret this result as normal/abnormal . MPV (test code = 9.3 fL 9.5-12.9 L 70385-0) NRBC/100 WBC (test See_Comment [Automat ed code = 3146666393) message] The system which generated this result transmitted reference range : 0.0 - 10.0 /100 WBCs. The refer ence range was not u sed to interpret th is result as normal/abnormal . NRBC x10^3 (test code <0.01 See_Comment [Auto mated = 0553051806) message] The s ystem which generated this result transmitted reference range : 10*3/?L. The reference range was not used to interpret this result as normal/abnormal . GRAN MAT (NEUT) % 67.4 % (test code = 770-8) IMM GRAN % (test code 0.60 % = 3894677897) LYMPH % (test code = 20.6 % 736-9) MONO % (test code = 9.4 % 5905-5) EOS % (test code = 1.7 % 713-8) BASO % (test code = 0.3 % 706-2) GRAN MAT x10^3(ANC) 2.43 10*3/uL 1.88-7.09 (test code = 1357068590) IMM GRAN x10^3 (test <0.03 0-0.06 code = 1775556905) LYMPH x10^3 (test code 0.74 10*3/uL 1.32-3.29 L = 731-0) MONO x10^3 (test code 0.34 10*3/uL 0.33-0.92 = 742-7) EOS x10^3 (test code = 0.06 10*3/uL 0.03-0.39 711-2) BASO x10^3 (test code <0.03 0.01-0.07 = 704-7) Lab Interpretation Abnormal (test code = 47804-2) [facility] HospitalURINALYSIS2020-03-12 22:51:00 Test Item Value Reference Range Interpretation Comments APPEARANCE (test code = Clear Clear 5629246788) COLOR (test code = Yellow Yellow 9489848014) PH (test code = 4.8-8.0 6416313077) SP GRAVITY (test code = 1.003-1.030 4392271582) GLU U QUAL (test code = Negative Negative 3425036049) BLOOD (test code = Negative Negative 3363355696) KETONES (test code = Negative Negative 0986458149) PROTEIN (test code = Negative Negative 2887-8) UROBILIN (test code = 1.0 mg/dL See_Comment [Auto mated message] 4247698366) The system [employer] generated this result transmit gulshan reference range : 0-1.0 mg/dL. Th e reference range was not used to interpret this result as normal/abnormal . BILIRUBIN (test code = Small Negative A 5149506510) NITRITE (test code = Negative Negative 6699386165) LEUK NICHOLE (test code = Negative Negative 1837103510) RBC/HPF (test code = See_Comment [Autom ated message] 7154465325) The system [employer] generated this result transmit gulshan reference range : 0 - 3 HPF. The refe rence range was not u sed to interpret th is result as normal/abnormal . WBC/HPF (test code = See_Comment [Autom ated message] 1148750504) The system [employer] generated this result transmit gulshan reference range : 0 - 5 HPF. The refe rence range was not u sed to interpret th is result as normal/abnormal . BACTERIA (test code = Negative Negative 6768106660) Ictotest (test code = Negative 5567083809) Lab Interpretation (test Abnormal code = 01421-7) [facility] HospitalPregnancy Test, [id number] 22:10:00 Test Item Value Reference Range Interpretation Comments PREG SERUM (test code Negative = 5420732111) KIM (test code = KIM) Less than 10 IU/L. ?If low titer or ectopic is suspected, resubmit specimen in 48-72 hours. [facility] HospitalCBC WITH [id number] 22:10:00 Test Item Value Reference Range Interpretation Comments WBC (test code = See_Comment L [Automated 5090-2) message] The sy stem which generated this result transmitted reference range : 4.30 - 11.10 10*3/?L. The reference range was not used to interpret this result as normal/abnormal . RBC (test code = See_Comment L [Automated 249-8) message] The sy stem which generated this [...] RDW-SD (test code = 49.4 fL 39-49.9 07375-1) RDW-CV (test code = 14.6 % 12-15.5 788-0) PLT (test code = See_Comment [Automated 777-3) message] The sy stem which generated this result transmitted reference range : 166 - 358 10*3/ ?L. The reference r luca was not used to interpret this result as normal/abnormal . MPV (test code = 9.1 fL 9.5-12.9 L 05557-2) NRBC/100 WBC (test See_Comment [Automat ed code = 2819766614) message] The system which generated this result transmitted reference range : 0.0 - 10.0 /100 WBCs. The refer ence range was not u sed to interpret th is result as normal/abnormal . NRBC x10^3 (test code <0.01 See_Comment [Auto mated = 0101137763) message] The s ystem which generated this result transmitted reference range : 10*3/?L. The reference range was not used to interpret this result as normal/abnormal . GRAN MAT (NEUT) % 48.3 % (test code = 770-8) IMM GRAN % (test code 0.30 % = 5125355577) LYMPH % (test code = 38.9 % 736-9) MONO % (test code = 9.8 % 5905-5) EOS % (test code = 2.4 % 713-8) BASO % (test code = 0.3 % 706-2) GRAN MAT x10^3(ANC) 1.78 10*3/uL 1.88-7.09 L (test code = 7910793458) IMM GRAN x10^3 (test <0.03 0-0.06 code = 4277084908) LYMPH x10^3 (test code 1.43 10*3/uL 1.32-3.29 = 731-0) MONO x10^3 (test code 0.36 10*3/uL 0.33-0.92 = 742-7) EOS x10^3 (test code = 0.09 10*3/uL 0.03-0.39 711-2) BASO x10^3 (test code <0.03 0.01-0.07 = 704-7) Lab Interpretation Abnormal (test code = 09185-5) [facility]00 Test Item Value Reference Range Interpretation Comments APPEARANCE (test code = Hazy Clear A 5830284771) COLOR (test code = Yellow Yellow 6503171071) PH (test code = 4.8-8.0 7517566239) SP GRAVITY (test code = 1.003-1.030 3671898892) GLU U QUAL (test code = Normal Normal 6677677464) BLOOD (test code = Negative Negative 3629279815) KETONES (test code = Negative Negative 2291791639) PROTEIN (test code = Negative Negative 2887-8) UROBILIN (test code = 4.0 mg/dL Normal A 9660165375) BILIRUBIN (test code = Negative Negative 9586875409) NITRITE (test code = Negative Negative 2489005436) LEUK NICHOLE (test code = Negative Negative 4071219776) RBC/HPF (test code = See_Comment [Autom ated message] 2639354805) The system [employer] generated this result transmit gulshan reference range : 0 - 3 HPF. The refe rence range was not u sed to interpret th is result as normal/abnormal . WBC/HPF (test code = See_Comment [Autom ated message] 2367780572) The system [employer] generated this result transmit gulshan reference range : 0 - 5 HPF. The refe rence range was not u sed to interpret th is result as normal/abnormal . BACTERIA (test code = Many Negative A 4661310535) MUCOUS (test code = Slight Negative LPF A 1870342627) SQ EPITH (test code = HPF 0848112762) HYAL CAST (test code = See_Comment [Aut omated message] 5491151002) The system [employer] generated this result transmit gulshan reference range : <=2 LPF. The refere nce range was not u sed to interpret th is result as normal/abnormal . Lab Interpretation (test Abnormal code = 73664-4) [facility] Metabolic Panel (NA, K, CL, CO2, GLUCOSE, BUN, CREATININE, CA)2019-06-19 20:51:00 Test Item Value Reference Range Interpretation Comments NA (test code = 141 mmol/L 135-145 1830515426) K (test code = 4.5 mmol/L 3.5-5 7781180081) CL (test code = 107 mmol/L 98-108 1857251498) CO2 TOTAL (test code = 25 mmol/L 23-31 1596806586) AGAP (test code = 2-16 8633872694) BUN (test code = 16 mg/dL 7-23 8627214264) GLUCOSE (test code = 89 mg/dL 70-110 6042089422) CREATININE (test code 0.50 mg/dL 0.5-1.04 = 2468036985) CALCIUM (test code = 9.0 mg/dL 8.6-10.6 4881418733) eGFR Calculation mL/min/1.73m2 (Non-) (test code = 1175929424) eGFR Calculation mL/min/1.73m2 () (test code = 8476542197) KIM (test code = KIM) Association of [...] or urine or abnormalities in imaging tests). [facility] (ALB, T.PRO, BILI T, BU/BC, ALT, AST, ALK PHOS)2019-06-19 20:51:00 Test Item Value Reference Range Interpretation Comments TOTAL BILI (test code = 4149827650) 0.9 mg/dL 0.1-1.1 BILI UNCON (test code = 9939654346) 0.5 mg/dL 0.1-1.1 BILI CONJ (test code = 4209762071) 0.0 mg/dL 0-0.3 T PROTEIN (test code = 7896357571) 8.0 g/dL 6.3-8.2 ALBUMIN (test code = 8908055437) 4.3 g/dL 3.5-5 ALK PHOS (test code = 6316422066) 613 U/L 34-122 H ALTv (test code = 1742-6) 115 U/L 5-35 H AST(SGOT) (test code = 8658842492) 157 U/L 13-40 H Lab Interpretation (test code = Abnormal 67509-1) [facility] HospitalLipase [id number] 20:51:00 Test Item Value Reference Range Interpretation Comments LIPASE (test code = 8841591816) 89 U/L 0-220 Lab Interpretation (test code = Normal 73384-5) [facility] HospitalCT [facility]EN PELVIS W [id number] 03:36:50 No acute intra-abdominal abnormality. Hepatosplenomegaly with [...] No suspicious lytic or sclerotic bony lesions. MildL4/O3ylsfzlhleup and left L5/S1 facet arthrosis. IMPRESSIONNo acute intra-abdominal abnormality.Hepatosplenomegaly with diffuse fatty infiltration of the liver. Preliminary Report Dictated by Resident: Helena Turner, Apolinar Montes MD., have reviewed this study and agree withthe above report.[facility] HospitalComplete Metabolic Panel 2019-05-20 01:38:00 Test Item Value Reference Range Interpretation Comments NA (test code = 141 mmol/L 135-145 8247170249) K (test code = 4.0 mmol/L 3.5-5 7426796557) CL (test code = 105 mmol/L 98-108 8050322624) CO2 TOTAL (test code = 24 mmol/L 23-31 5558770719) AGAP (test code = 2-16 5534333202) BUN (test code = 23 mg/dL 7-23 6978541431) GLUCOSE (test code = 110 mg/dL 70-110 2755442158) CREATININE (test code = 0.68 mg/dL 0.5-1.04 2690624112) TOTAL BILI (test code = 1.0 mg/dL 0.1-1.5 6777530985) CALCIUM (test code = 9.4 mg/dL 8.6-10.6 9637013225) T PROTEIN (test code = 8.1 g/dL 6.3-8.2 9173005710) ALBUMIN (test code = 4.7 g/dL 3.5-5 1752701932) ALK PHOS (test code = 575 U/L 34-122 H 3110715669) ALTv (test code = 112 U/L 5-35 H 1742-6) AST(SGOT) (test code = 112 U/L 13-40 H 5105343972) eGFR Calculation mL/min/1.73m2 (Non-) (test code = 1090607815) eGFR Calculation mL/min/1.73m2 () (test code = 0633370878) KIM (test code = KIM) Association of [...] tests). Lab Interpretation Abnormal (test code = 65502-8) [facility] HospitalLipase, [id number] 01:38:00 Test Item Value Reference Range Interpretation Comments LIPASE (test code = 5693875578) 65 U/L 0-220 Lab Interpretation (test code = Normal 95786-5) [facility] HospitalUrinalysis2020-02-05 01:30:00 Test Item Value Reference Range Interpretation Comments APPEARANCE (test code = Clear Clear 5818225509) COLOR (test code = Romelia Yellow A 5394289860) PH (test code = 4.8-8.0 6029833387) SP GRAVITY (test code = 1.003-1.030 8698170018) GLU U QUAL (test code = Normal Normal 9694884008) BLOOD (test code = Negative Negative 2364681812) KETONES (test code = Negative Negative 4204639342) PROTEIN (test code = Negative Negative 2887-8) UROBILIN (test code = 2.0 mg/dL Normal A 6861613142) BILIRUBIN (test code = Negative Negative 2502977271) NITRITE (test code = Negative Negative 1961641095) LEUK NICHOLE (test code = Negative Negative 9288680665) RBC/HPF (test code = See_Comment H [Autom ated message] 3826868775) The system [employer] generated this result transmit gulshan reference range : 0 - 3 HPF. The refe rence range was not u sed to interpret th is result as normal/abnormal . WBC/HPF (test code = See_Comment [Autom ated message] 1025600599) The system [employer] generated this result transmit gulshan reference range : 0 - 5 HPF. The refe rence range was not u sed to interpret th is result as normal/abnormal . BACTERIA (test code = Few Negative A 3738939748) MUCOUS (test code = Slight Negative LPF A 5653483775) SQ EPITH (test code = HPF 7463475129) Lab Interpretation (test Abnormal code = 31757-9) [facility] WITH [id number] 01:24:00 Test Item Value Reference Range Interpretation [...] RDW-SD (test code = 49.0 fL 39-49.9 51022-7) RDW-CV (test code = 14.3 % 12-15.5 788-0) PLT (test code = See_Comment [Automated 777-3) message] The sy stem which generated this result transmitted reference range : 166 - 358 10*3/ ?L. The reference r luca was not used to interpret this result as normal/abnormal . MPV (test code = 10.2 fL 9.5-12.9 76208-5) NRBC/100 WBC (test See_Comment [Automat ed code = 2210298405) message] The system which generated this result transmitted reference range : 0.0 - 10.0 /100 WBCs. The refer ence range was not u sed to interpret th is result as normal/abnormal . NRBC x10^3 (test code <0.01 See_Comment [Auto mated = 6380328700) message] The s ystem which generated this result transmitted reference range : 10*3/?L. The reference range was not used to interpret this result as normal/abnormal . GRAN MAT (NEUT) % 65.5 % (test code = 770-8) IMM GRAN % (test code 0.50 % = 1459283604) LYMPH % (test code = 24.7 % 736-9) MONO % (test code = 8.6 % 5905-5) EOS % (test code = 0.5 % 713-8) BASO % (test code = 0.2 % 706-2) GRAN MAT x10^3(ANC) 4.37 10*3/uL 1.88-7.09 (test code = 7521806523) IMM GRAN x10^3 (test 0.03 10*3/uL 0-0.06 code = 5583663457) LYMPH x10^3 (test code 1.64 10*3/uL 1.32-3.29 = 731-0) MONO x10^3 (test code 0.57 10*3/uL 0.33-0.92 = 742-7) EOS x10^3 (test code = 0.03 10*3/uL 0.03-0.39 711-2) BASO x10^3 (test code <0.03 0.01-0.07 = 704-7) Lab Interpretation Abnormal (test code = 49926-3) [facility] HospitalCT ANKLE RIGHT WO [id number] 16:39:33 Distal tibial spiral fracture with entrance [...] is seen. The ankle mortise is anatomic. [facility], Radiant Results Inft User - 12/05/2018 11:41 [...] anterolateral tibialplafond without tibial plafond articular incongruity. [facility] HospitalXR TIBIA FIBULA 2 VW [id number] 20:06:10 Comminuted mildly displaced distal tibia fracture [...] extending to the tibialplafond.Nondisplaced proximal fibular shaft fracture.[facility] HospitalXR FOOT 3+ VW [id number] 20:06:10 Comminuted mildly displaced distal tibia fracture [...] extending to the tibialplafond.Nondisplaced proximal fibular shaft fracture.[facility] HospitalURINE [id number] 21:51:00 Test Item Value Reference Range Interpretation Comments URINE CULTURE (test 10,000 - 100,000 CFU/mL code = 630-4) mixed aerobic organisms - suggests endogenous microbial contamination [facility] HospitalHELICOBACTER PYLORI AB, [id number] 14:31:00 Test Item Value Reference Range Interpretation Comments Helicobacter pylori IgG Negative Negative Antibody (test code = 2821303076) KIM (test code = KIM) Negative - No H. pylori IgG antibody detected.Positive - Indicates presence of detectable IgG antibodies. Does not distinguish between past or current infection, or between active infection and colonization.Invalid - A second sample should be sent. Lab Interpretation (test Normal code = 35858-2) [facility] Metabolic Panel (NA, K, CL, CO2, GLUCOSE, BUN, CREATININE, CA)2018-11-16 10:15:00 Test Item Value Reference Range Interpretation Comments NA (test code = 140 mmol/L 135-145 7361624996) K (test code = 3.9 mmol/L 3.5-5 1153050544) CL (test code = 105 mmol/L 98-108 7861488194) CO2 TOTAL (test code = 30 mmol/L 23-31 0968482038) AGAP (test code = 2-16 7236269324) BUN (test code = 16 mg/dL 7-23 4744647966) GLUCOSE (test code = 104 mg/dL 70-110 5597911581) CREATININE (test code 0.52 mg/dL 0.5-1.04 = 0168290569) CALCIUM (test code = 8.6 mg/dL 8.6-10.6 6991131560) eGFR Calculation mL/min/1.73m2 (Non-) (test code = 7664268339) eGFR Calculation mL/min/1.73m2 () (test code = 1417852725) KIM (test code = KIM) Association of [...] or urine or abnormalities in imaging tests). [facility] WITH [id number] 09:47:00 Test Item Value Reference Range Interpretation Comments WBC (test code = See_Comment [Automated 7390-2) message] The sy stem which generated this [...] RDW-SD (test code = 47.8 fL 39-49.9 25598-6) RDW-CV (test code = 13.5 % 12-15.5 788-0) PLT (test code = See_Comment [Automated 777-3) message] The sy stem which generated this result transmitted reference range : 166 - 358 10*3/ ?L. The reference r luca was not used to interpret this result as normal/abnormal . MPV (test code = 9.9 fL 9.5-12.9 49598-8) NRBC/100 WBC (test See_Comment [Automat ed code = 9826396633) message] The system which generated this result transmitted reference range : 0.0 - 10.0 /100 WBCs. The refer ence range was not u sed to interpret th is result as normal/abnormal . NRBC x10^3 (test code <0.01 See_Comment [Auto mated = 2851498299) message] The s ystem which generated this result transmitted reference range : 10*3/?L. The reference range was not used to interpret this result as normal/abnormal . GRAN MAT (NEUT) % 56.8 % (test code = 770-8) IMM GRAN % (test code 0.40 % = 9574576535) LYMPH % (test code = 27.2 % 736-9) MONO % (test code = 9.1 % 5905-5) EOS % (test code = 5.8 % 713-8) BASO % (test code = 0.7 % 706-2) GRAN MAT x10^3(ANC) 2.55 10*3/uL 1.88-7.09 (test code = 8482594124) IMM GRAN x10^3 (test <0.03 0-0.06 code = 6820914933) LYMPH x10^3 (test code 1.22 10*3/uL 1.32-3.29 L = 731-0) MONO x10^3 (test code 0.41 10*3/uL 0.33-0.92 = 742-7) EOS x10^3 (test code = 0.26 10*3/uL 0.03-0.39 711-2) BASO x10^3 (test code 0.03 10*3/uL 0.01-0.07 = 704-7) Lab Interpretation Abnormal (test code = 48182-2) [facility] HospitalGLYCOSYLATED HEMOGLOBIN (A1C)2018-11-16 04:33:00 Test Item Value Reference [...] Indicated Lab Interpretation Normal (test code = 30171-7) [facility] HospitalHCV [id number] 02:23:00 Test Item Value Reference Range Interpretation Comments HCV Semi-Quantitative (test code = 88555-1) [facility] SURFACE [id number] 02:23:00 Test Item Value Reference Range Interpretation Comments HBsAB (test code = Negative 9305419698) HBsAb mIU/mL Semi-Quantitative (test code = 5829015114) KIM (test code = Interpretation:?Hepatitis KIM) B Surface Antibody? ? Negative - Patient is considered to be not immune to infection with HBV.? Positive - Anti-HBs detected at greater than or equal to 12 mIU/mL.?Patient is considered to be immune to infection with HBV.? [facility] A VIRUS ANTIBODY [id number] 02:11:00 Test Item Value Reference Range Interpretation Comments HAVM Semi-Quantitative (test code = 15365-3) KIM (test code = HAVAb IgM Interpretative KIM) Information:Reactive greater than or equal to 1.2Biotin has been reported to cause a negative bias, interpret results relative to patient's use of biotin. [facility] B CORE ANTIBODY [id number] 02:11:00 Test Item Value Reference Range Interpretation Comments HBCM Semi-Quantitative (test code = 18447-5) KIM (test code = Biotin has been reported KIM) to cause a negative bias, interpret results relative to patient's use of biotin. [facility] HospitalABORH [id number] 00:49:22 Test Item Value Reference Range Interpretation Comments ABO & RH (test code O Positive Performe d at [facility] = 20) Laboratory Serv [facility] [place] [id number] Free: [phone] A No. [id number] [facility] HospitalUrinalysis2019-08-04 00:29:00 Test Item Value Reference Range Interpretation Comments APPEARANCE (test code = Clear Clear 8074077927) COLOR (test code = Yellow Yellow 1164647501) PH (test code = 4.8-8.0 7490221674) SP GRAVITY (test code = 1.003-1.030 H 0197701152) GLU U QUAL (test code = Normal Normal 2325969015) BLOOD (test code = Negative Negative 3894759733) KETONES (test code = Negative Negative 2377282795) PROTEIN (test code = Negative Negative 2887-8) UROBILIN (test code = 4.0 mg/dL Normal A 3677696197) BILIRUBIN (test code = Negative Negative 1084071566) NITRITE (test code = Negative Negative 1069005889) LEUK NICHOLE (test code = Negative Negative 9155894990) RBC/HPF (test code = See_Comment H [Autom ated message] 0974893194) The system [employer] generated this result transmit gulshan reference range : 0 - 3 HPF. The refe rence range was not u sed to interpret th is result as normal/abnormal . WBC/HPF (test code = See_Comment [Autom ated message] 3650866014) The system [employer] generated this result transmit gulshan reference range : 0 - 5 HPF. The refe rence range was not u sed to interpret th is result as normal/abnormal . BACTERIA (test code = Negative Negative 7340445713) SQ EPITH (test code = See_Comment [Auto mated message] 5876814548) The system [employer] generated this result transmit gulshan reference range : <=2 HPF. The refere nce range was not u sed to interpret th is result as normal/abnormal . Lab Interpretation (test Abnormal code = 69512-6) [facility] HospitalType and Screen - ONCE [id number] 00:15:31 Test Item Value Reference Range Interpretation Comments ABO & RH (test code O POSITIVE Performe d at [facility] = 20) Laboratory Serv [facility] [place] [address] s [id number] Free: [phone] A No. [id number] IAT (test code = Negative Performed a t [facility] 1185) Laboratory Serv [facility] [place] [address] s [address]Wucv Free: [phone] A No. [id number] [facility] HospitalTRCRISSYN [id number] 00:04:00 Test Item Value Reference Range Interpretation Comments TROPONIN I (test 0.002 ng/mL See_Comment [Automated code = 9226453406) message] The system which generated this result [...] ? Lab Interpretation Normal (test code = 34609-0) [facility] HospitalLIPID PANEL (17502)(TOTAL CHOLESTEROL, TRIGLYCERIDES, HDL)2018-11-15 23:58:00 Test Item Value Reference Range Interpretation Comments CHOL (test code = 289 mg/dL 120-200 H 5856765047) HDL (test code = 97 mg/dL >50 6371258388) HDLC RATIO (test code = See_Comment [Au tomated message] 9501732609) The system [employer] generated this result transmit gulshan reference range : <=4.5. The refe rence range was not u sed to interpret th is result as normal/abnormal . TRIG (test code = 52 mg/dL 30-170 1790030384) LDL CHOL (test code = 182 mg/dL See_Comment H [Auto mated message] 27209-0) The system [employer] generated this result transmit gulshan reference range : <=160. The refe rence range was not u sed to interpret th is result as normal/abnormal . VLDL (test code = 10 mg/dL 5-60 3353467797) Lab Interpretation (test Abnormal code = 96111-5) [facility] HospitalCT ABDOMEN PELVIS W [id number] 17:09:23 1.?No acute intra-abdominal or pelvic abnormality. [...] spine.IMPRESSION1. No acuteintra-abdominal or pelvic abnormality.2. Splenomegaly, unchanged.[facility] HospitalACETAMINOPHEN 2018-11-15 16:52:00 Test Item Value Reference Range Interpretation Comments ACETAMINOP (test code = <10.0 10-30 L 3318336388) KIM (test code = KIM) Toxic: Greater than 200 ug/mL @ 4 hour post ingestion or greater than 50 ug/mL @ 12 hour post ingestion Lab Interpretation (test Abnormal code = 62726-4) [facility] HospitalXR CHEST 1 [id number] 15:23:59 1.?No acute cardiopulmonary abnormality.* * * [...] fortechnique. Bones: No acute osseous abnormality isseen. [facility], Radiant Results Inft User - 11/15/2018 10:24 [...] acute osseousabnormality is seen.IMPRESSION1. No acute cardiopulmonary abnormality.[facility] HospitalTroponin [id number] 15:19:00 Test Item Value Reference Range Interpretation Comments TROPONIN I (test 0.014 ng/mL See_Comment [Automated code = 4274453007) message] The system which generated this result [...] ? Lab Interpretation Normal (test code = 01811-0) [facility] HospitalN-TERMINAL [id number] 15:16:00 Test Item Value Reference Range Interpretation Comments NT-proBNP (test code 29 pg/mL See_Comment [Autom ated = 0357867121) message] The system which generated this result transmitted reference range : <=125. The reference range was not used to interpret this result as normal/abnormal . KIM (test code = KIM) Biotin has been reported to cause a negative bias, interpret results relative to patient's use of biotin. Lab Interpretation Normal (test code = 46680-5) [facility] HospitalBasic Metabolic Panel (NA, K, CL, CO2, GLUCOSE, BUN, CREATININE, CA)2018-11-15 15:07:00 Test Item Value Reference Range Interpretation Comments NA (test code = 142 mmol/L 135-145 0771613492) K (test code = 5.1 mmol/L 3.5-5 H 1152476946) CL (test code = 107 mmol/L 98-108 4503654549) CO2 TOTAL (test code = 26 mmol/L 23-31 1880669034) AGAP (test code = 2-16 1137385529) BUN (test code = 22 mg/dL 7-23 1803322084) GLUCOSE (test code = 93 mg/dL 70-110 5406631318) CREATININE (test code = 0.47 mg/dL 0.5-1.04 L 4835335660) CALCIUM (test code = 8.9 mg/dL 8.6-10.6 6323170516) eGFR Calculation mL/min/1.73m2 (Non-) (test code = 7424894168) eGFR Calculation mL/min/1.73m2 () (test code = 1045992211) KIM (test code = KIM) Association of [...] tests). Lab Interpretation Abnormal (test code = 11486-1) [facility] HospitalHepatic Function Panel (ALB, T.PRO, BILI T, BU/BC, ALT, AST, ALK PHOS)2018-11-15 15:07:00 Test Item Value Reference Range Interpretation Comments TOTAL BILI (test code = 1187493898) 1.1 mg/dL 0.1-1.1 BILI UNCON (test code = 4831201314) 0.4 mg/dL 0.1-1.1 BILI CONJ (test code = 5302849288) 0.0 mg/dL 0-0.3 T PROTEIN (test code = 8420103569) 8.2 g/dL 6.3-8.2 ALBUMIN (test code = 2948008438) 4.2 g/dL 3.5-5 ALK PHOS (test code = 9780629799) 723 U/L 34-122 H ALT(SGPT) (test code = 2596378622) 196 U/L 9-51 H AST(SGOT) (test code = 5726699579) 194 U/L 13-40 H Lab Interpretation (test code = Abnormal 57525-5) [facility] HospitalLipase [id number] 15:07:00 Test Item Value Reference Range Interpretation Comments LIPASE (test code = 7900827483) 185 U/L 0-220 Lab Interpretation (test code = Normal 98825-7) [facility] HospitalaPTT2019-08-03 14:58:00 Test Item Value Reference Range Interpretation Comments APTT Patient (test See_Comment [Automat ed code = 3173-2) message] The system which generated this result transmitted reference range : 23 - 38 Seconds . The reference range was not used to interpr et this result as normal/abnormal . KIM (test code = KIM) The [facility] patient population mean normal value for aPTT is 30 seconds. Lab Interpretation Normal (test code = 42635-0) [facility] HospitalProthrombin Time (PT) / [id number] 14:55:00 Test Item Value Reference Range Interpretation [...] tions. Lab Interpretation (test Normal code = 85264-7) [facility] WITH [id number] 14:47:00 Test Item Value Reference Range Interpretation [...] RDW-SD (test code = 47.1 fL 39-49.9 80265-6) RDW-CV (test code = 13.4 % 12-15.5 788-0) PLT (test code = See_Comment [Automated 777-3) message] The sy stem which generated this result transmitted reference range : 166 - 358 10*3/ ?L. The reference r luca was not used to interpret this result as normal/abnormal . MPV (test code = 10.0 fL 9.5-12.9 26099-8) NRBC/100 WBC (test See_Comment [Automat ed code = 5184967381) message] The system which generated this result transmitted reference range : 0.0 - 10.0 /100 WBCs. The refer ence range was not u sed to interpret th is result as normal/abnormal . NRBC x10^3 (test code <0.01 See_Comment [Auto mated = 2816319845) message] The s ystem which generated this result transmitted reference range : 10*3/?L. The reference range was not used to interpret this result as normal/abnormal . GRAN MAT (NEUT) % 54.5 % (test code = 770-8) IMM GRAN % (test code 0.40 % = 9083126723) LYMPH % (test code = 26.5 % 736-9) MONO % (test code = 10.5 % 5905-5) EOS % (test code = 7.4 % 713-8) BASO % (test code = 0.7 % 706-2) GRAN MAT x10^3(ANC) 2.43 10*3/uL 1.88-7.09 (test code = 5122476458) IMM GRAN x10^3 (test <0.03 0-0.06 code = 5504840735) LYMPH x10^3 (test code 1.18 10*3/uL 1.32-3.29 L = 731-0) MONO x10^3 (test code 0.47 10*3/uL 0.33-0.92 = 742-7) EOS x10^3 (test code = 0.33 10*3/uL 0.03-0.39 711-2) BASO x10^3 (test code 0.03 10*3/uL 0.01-0.07 = 704-7) Lab Interpretation Abnormal (test code = 44069-7) [facility] HospitalCultasc[facility], [id number] 15:57:00 Test Item Value Reference Range Interpretation Comments Culture, Urine (test NF code = URC) Culture, Urine (test 10 NSF code = URC1) * This is an EDIT ED result. * A prior r esult that was reported as final has been changed. [id number] 22:53:00 Test Item Value Reference Range Interpretation [...] = UACAST) CAST LPF Urine Source: Urine [id number] SURGICAL PATHOLOGY, LEVEL [id number] 14:31:[address] [address] Laboratory Printed: 07/09/[address] [place] [address] DAEMPathology Page: 1 Patient: ZEKE ALEMAN Birthdate: 1960 Age/Sex: 56/F Spec#: [id number]: HERMES SALAZAR Specimen Date: 07/08/17 [...] Conway Entered by:07/09/17 - 1429 MAY PROCEDURES: 52163,02303/4 Patient: ZEKE ALEMAN Re07/03/17Loc: T4-A MR#: [id number] CONTINUED ON NEXT PAGE Dis: 07/09/17ta: DIS IN - [address] [address] Laboratory Printed: 07/09/[address] [place] [address] [facility] Page: 2 Patient: ZEKE ALEMAN [id number] (Continued) GROSS DESCRIPTION A. LIVER BIOPSY LEFT [...] by: DANII SHAHID Entered by:07/08/17 - 13[address] [facility].KWAME MICROSCOPIC DESCRIPTION A microscopic examination was performed to arrive at the diagnostic conclusion reported. Signed ___ ____(Electronically Signed) Kelvin 07/09/17 Patient: ZEKE ALEMAN Re07/03/17Loc: T4-A MR#: [id number] END OF REPORT Dis: 07/09/17ta: DIS [id number] 05:13:00 Test Item Value Reference Range Interpretation [...] U/L 8-55 H = ALT) Reference Lab Bnmvojh1815-06-46 04:14:00 Test Item Value Reference Range Interpretation Comments Reference Lab 10 U/mL 0-35 Laurent ECLIA Testing (test code methodolo gyPerformed at: HD = CA199) - [facility] [place] [address] [id number] Di aimee: Chico Suero MD, Phone : [phone] Reference Lab [id number] 16:14:00 Test Item Value Reference Range Interpretation Comments Reference Lab Testing 128.5 Units 0.0-20.0 H (test code = MARLON) Negative 0.0 - 20.0 Equivocal 20.1 - 24.9 Positive >24.9Mitochondr ial (M2) Antibodies are found in 90-96% ofpatients with primary biliary cirrhosis.Perfo rmed at: [facility] Lab[address] [id number] Director: Pj Rider MD, [facility] ne: [phone] Reference Lab [id number] 16:14:00 Test Item Value Reference Range Interpretation [...] testing of p ositive sera with both HI-3 and MPO-ANCA enzyme immunoassays. A s many as 5% serumsamples are positive only b y EIA. Ref. AM J Clin Lyvwyv0042;111: 507-513. Reference Lab <1:20 titer Neg:<1:20 The atypical p ANCA pattern Testing (test has been obser chelita in code = ATANCA) asignificant percentage of patients with u lcerative colitis,primary sclerosing cholangitis and autoimmune hepatitis.Perfo rmed at: BN - [facility] [address] [id number] Di aimee: Chester ramírez MD, Phone: [phone] [id number] 05:12:00 Test Item Value Reference Range Interpretation [...] 8-55 H code = ALT) Reference Lab [id number] 22:07:00 Test Item Value Reference Range Interpretation Comments Reference Lab Testing 785 IU/L 39-117 H (test code = ISOALKT) Reference Lab Testing 25 % 14-68 (test code = ISOALKBT) Reference Lab Testing 74 % 18-85 (test code = ISOALKLT) Reference Lab Testing 1 % 0-18 Perfor med at: - (test code = ISOALKIT) [facility] [address] [id number] Director: Chico Suero MD, Phone: [phone] [facility] at: [facility] [id number] Di aimee: Chester ramírez MD, Phone: [phone] [id number] 11:48:00 Test Item Value Reference Range Interpretation [...] code = ALT) 92 U/L 8-55 H [id number] 06:08:00 Test Item Value Reference Range Interpretation [...] 8.5 mg/dL 7.8-10.44 N code = CA) Fzbwfsqzs3273-10-13 06:06:00 Test Item Value Reference Range Interpretation [...] code = ALT) 129 U/L 8-55 H Blcbyrmhol6823-82-08 05:57:00 Test Item Value Reference Range Interpretation [...] code = BASO#) 0.0 thou/uL 0.0-0.2 N Bkaibovlcsl2696-99-45 05:55:00 Test Item Value Reference Range Interpretation [...] - 4. 0 CRITICAL: > 4.0 Anticoagulant? WXLRVxvcocscj4333-27-12 05:36:00 Test Item Value Reference Range Interpretation [...] 8.9 mg/dL 7.8-10.44 N code = CA) Ahffvtcyn1793-72-26 05:33:00 Test Item Value Reference Range Interpretation [...] code = ALT) 160 U/L 8-55 H Gqgsuiffyi4571-94-03 05:28:00 Test Item Value Reference Range Interpretation [...] 0.1 thou/uL 0.0-0.2 N Chemistry - Elizabeth Ouprmhj7928-72-86 13:02:00 Test Item Value Reference Range Interpretation [...] Inserts - Directions forU se, June,August 02, [facility] Group ic. Xniobcjub1382-69-06 05:00:00 Test Item Value Reference Range Interpretation [...] code = ALT) 144 U/L 8-55 H Cumqerfwt9680-66-01 04:50:00 Test Item Value Reference Range Interpretation [...] 8.4 mg/dL 7.8-10.44 N code = CA) Qxqlzbwiry1650-19-44 04:39:00 Test Item Value Reference Range Interpretation [...] code = BASO#) 0.0 thou/uL 0.0-0.2 N Cvlmkiccw4574-54-23 17:07:00 Test Item Value Reference Range Interpretation Comments Chemistry (test code = IGG) 1032.00 mg/dL 552-1631 N Sbmhhdpav6041-49-71 17:07:00 Test Item Value Reference Range Interpretation Comments Chemistry (test code = IGM) 215.00 mg/dL 33-293 N Unsnmpvgmt6285-83-24 00:50:00 Test Item Value Reference Range Interpretation [...] UABLD) Urine Source: Urine Clean CatchChemistry - Aokwmpjx4161-87-54 00:25:00 Test Item Value Reference Range Interpretation Comments Chemistry - Specials (test Non-Reactive NonReactive code = THEPAIGM) Chemistry - Specials (test Non-Reactive S/CO NonReactive code = THBSAG) Chemistry - Specials (test Non-Reactive NonReactive code = INTHBCM) Chemistry - Specials (test Non-Reactive NonReactive code = INTHEPC) Wcaifcxim4142-48-83 22:12:00 Test Item Value Reference Range Interpretation [...] code 196 U/L 8-55 H = ALT) Ohpdfburc5159-55-97 22:12:00 Test Item Value Reference Range Interpretation Comments Chemistry (test code = LIP) 22 U/L 8-78 N Vtdywhoxms0797-30-35 21:50:00 Test Item Value Reference Range Interpretation [...] code = BASO#) 0.1 thou/uL 0.0-0.2 N Ynbboafyu2902-45-69 22:49:00 Test Item Value Reference Range Interpretation [...] 78 U/L 8-55 H code = ALT) Bzhxciunh8408-82-16 22:49:00 Test Item Value Reference Range Interpretation Comments Chemistry (test code = LIP) 12 U/L 8-78 N Rtgddgeknl9800-11-40 22:24:00 Test Item Value Reference Range Interpretation [...] code = BASO#) 0.0 thou/uL 0.0-0.2 N Hclnuuhorx6537-01-43 22:00:00 Test Item Value Reference Range Interpretation [...] UABLD) Negative Negative Urine Source: Urine Clean XopsmVfmhwoez0074-30-86 09:28:00 Test Item Value Reference Range Interpretation Comments Accuchek (test code = ACU) 99 mg/dL 70-110 N Edoaskqxdu2348-03-73 09:14:00 Test Item Value Reference Range Interpretation [...] UABLD) Negative Negative Urine Source: Urine Clean [id number] 21:28:00 Test Item Value Reference Range Interpretation [...] UABLD) Negative Negative Urine Source: Urine Clean QpoycMfikfisxi3632-00-76 21:09:00 Test Item Value Reference Range Interpretation [...] 95 U/L 8-55 H code = ALT) Jcncnetug0919-72-47 21:09:00 Test Item Value Reference Range Interpretation Comments Chemistry (test code = LIP) 39 U/L 8-78 N Smrjjkvluu0016-39-88 20:49:00 Test Item Value Reference Range Interpretation [...] code = BASO#) 0.0 thou/uL 0.0-0.2 N Inanagkzhp4234-03-70 21:34:00 Test Item Value Reference Range Interpretation [...] a presumptive p ositive result must bet esterenato using a more sp ecific alternate chemi brandy method inorder to obtain a confir med analytical resu lt. Additionalconfi rmation and identificat ion may be ordered on a routinebasis, i f desired. Presu mptive positive urines are held [facility]. Urine Source: Urine Clean DiftiRmkdyfnnem4784-71-60 19:17:00 Test Item Value Reference Range Interpretation [...] = UABLD) Negative Negative Urine Source: Urine [id number] 18:48:00 Test Item Value Reference Range Interpretation [...] code 84 U/L 8-55 H = ALT) Lttqoetiz5207-64-53 18:48:00 Test Item Value Reference Range Interpretation Comments Chemistry (test code = JORGE) 53.0 U/L 25-125 N Vhjaibene2636-11-23 18:48:00 Test Item Value Reference Range Interpretation Comments Chemistry (test code = LIP) 10 U/L 8-78 N Aiqvjvefwv1352-43-05 18:19:00 Test Item Value Reference Range Interpretation [...] = BASO#) 0.1 thou/uL 0.0-0.2 N Culture, Geehd4994-01-43 10:22:00 Test Item Value Reference Range Interpretation Comments Culture, Urine (test code = URC) NF N Culture, Urine (test code = URC1) 10 MSF N Hujjsxeoa3482-72-83 17:38:00 Test Item Value Reference Range Interpretation Comments Chemistry (test code = PHOS) 2.9 mg/dL 2.3-4.7 N Zchimccgr7979-23-46 17:04:00 Test Item Value Reference Range Interpretation [...] H = ALT) Chemistry - BNP, HgbA1c, HFXm8890-88-16 17:04:00 Test Item Value Reference Range Interpretation Comments Chemistry - BNP, 4.9 % 4.0-6.0 N Therapeutic goals for glycemic HgbA1c, PTHi (test control ( ADA)Adults:- Goal of code = USEB7NG) therapy: Les s than 7.0% HbA1c- Action suggeste d: Greater than 8.0% NlI7cDypsg tric patients:- Toddlers and pr eschoolers: Less than 8.5% (but Greater than 7.5%)- Katelynn ool age (6-12 years): Less th an 8%- Adolescents and young adults (13-19 years): Less than 7.5%Diagnosing diabetes (ADA)- HbA1c: Greater than or equal to 6.5% Values of 5.7 - 6.4% indicate HIGH risk for developing DiabetesInterna tional Expert Committee Repor t on the Role of the H3XUlhec in the Diagnosis of Di abetes. Diabetes Care 2009July;32(7): 1327-1334ADA, Diagnosis cla ssification of diabetes [facility].Diabetes Care 2010; 33 S uppl 1:S62 Htjmkfgjj1187-51-53 16:59:00 Test Item Value Reference Range Interpretation Comments Chemistry (test code = CRP) 1.16 mg/dL = or < 0.5 H What test does the doctor want? C-REACTIVE PROTEIN (CRP)Wtypbcpmxf3101-95-30 16:53:00 Test Item Value Reference Range Interpretation [...] HPF None Seen Urine Source: Urine Clean [id number] 16:46:00 Test Item Value Reference Range Interpretation [...] code = BASO#) 0.1 thou/uL 0.0-0.2 N Ijqbirewub1813-79-90 21:59:00 Test Item Value Reference Range Interpretation [...] Urine Clean CatchSepsis - Lactic Acid >2 [id number] 23:59:00 Test Item Value Reference Range Interpretation Comments Sepsis - Lactic Additional Lactate testin g will be Acid >2 Rflx performed in 3 hrs (test code = according to e IBHNT8V) SepsisProtocol. Kbtxkeorz5817-84-19 21:12:00 Test Item Value Reference Range Interpretation Comments Chemistry (test code = JORGE) 59.0 U/L 25-125 N Kxylnbdiy6484-66-60 20:59:00 Test Item Value Reference Range Interpretation [...] 87 U/L 8-55 H code = ALT) Kisssnumi4482-94-33 20:59:00 Test Item Value Reference Range Interpretation Comments Chemistry (test code = LIP) 32 U/L 8-78 N Chemistry - Arzwktb5521-99-11 20:59:00 Test Item Value Reference Range Interpretation Comments Chemistry - Lactate (test code = 2.1 mmol/L 0.5-2.2 N LACTSEP-T) Kmwsuxacqc7967-31-21 20:43:00 Test Item Value Reference Range Interpretation [...] = UABLD) Negative Negative Urine Source: Urine UpdlytYijtmulegn8554-54-80 20:37:00 Test Item Value Reference Range Interpretation [...]
[2021-06-01] MEDS ORDERED: NA CHLORIDE 0.9% 1,000 ML ONE (20:36)
[2021-06-01] MEDS ORDERED: NA CHLORIDE 0.9% 500 ML ONE (20:36)
[2021-06-01 21:12] LABS: Absolute Lymphocytes (CBC) 0.8 K/uL (0.7-4.9); Hematocrit 33.4 % (36.0-45.0); Lymphocytes % 19.6 % (15.3-44.8); MPV 7.3 fL (7.6-11.3); RBC Red Blood Cell Count 3.74 M/uL (3.86-4.86)
[2021-06-01 21:15] LABS: Protime INR 1.02
[2021-06-01 21:31] LABS: ALT/SGPT 149 U/L (12-78); AST/SGOT 178 U/L (15-37); Albumin 3.1 g/dL (3.4-5.0); Alkaline Phosphatase 835 U/L (45-117); BUN Blood Urea Nitrogen 15 mg/dL (7-18); Bicarbonate 24 mmol/L (21-32); Bilirubin Direct 0.9 mg/dL (0-0.2); Bilirubin Total 1.2 mg/dL (0.2-1.0); Glucose Level 100 mg/dL (74-106); Lipase 102 U/L (73-393); NT PRO-BNP 21 pg/mL (<125); Potassium 3.8 mmol/L (3.5-5.1); Protein, Total 7.8 g/dL (6.4-8.2); Sodium Level 138 mmol/L (136-145)
[2021-06-01 21:37] LABS: Urine Blood Negative (Negative); Urine Glucose Negative (Negative); Urine Protein Negative (Negative); Urine Specific Gravity >=1.030 (1.005-1.030); Urine pH 6.5 (5.0-7.0)
--- NOTE | 2021-06-01 21:43 | RAD REPORT ---
EXAM DESCRIPTION: RAD - Chest Single View - 06/01/2021 9:37 pm CLINICAL HISTORY: COUGH COMPARISON: Portable 08/25/2020 TECHNIQUE: AP portable chest image was obtained 06/01/2021 9:37 pm . FINDINGS: Lungs are clear. Lung volumes are low. Lung parenchymal pattern matches comparison. Heart and vasculature are normal. No measurable pleural effusion and no pneumothorax. No acute bony abnorma lity seen. No acute aortic findings suspected. IMPRESSION: No acute cardiopulmonary process. No significant change from comparison study.
[2021-06-01] MEDS ORDERED: HYDROMORPHONE HCL 1 MG/ML INJ ONE (23:08)
[2021-06-01] MEDS ORDERED: FAMOTIDINE 20 MG/2 ML VIAL IV ONE (23:08)
[2021-06-01] MEDS ORDERED: ONDANSETRON 4 MG/2 ML VIAL ONE (23:08)
--- NOTE | 2021-06-02 00:09 | ER ---
Nurse's Notes [facility] Name: Yessenia Aleman Age: 60 yrs Sex: Female : 1960 Arrival Date: 06/01/2021 Time: 18:12 Bed Treatment Private MD: Diagnosis: Upper abdominal pain, unspecified;Unspecified cirrhosis of liver-PRIMARY BILIARY CIRRHOSIS;Essential (primary) hypertension;Coronavirus infection, unspecified Presentation: 06/01 18:46 Chief complaint: Patient states: Pt c/o pain to upper stomach that radiates to back ss7 that began Saturday and has worsened. PMH of pancreatitis. Also c/o nausea and vomiting. Coronavirus screen: Vaccine status: Patient reports receiving the 2nd dose of the covid vaccine. Patient reports receiving the 1st dose of the Covid vaccine. Client denies travel out of the [place] in the last 14 days. Ebola Screen: No symptoms or risks identified at this time. Initial Sepsis Screen: Does the patient meet any 2 criteria? No. Patient's initial sepsis screen is negative. Does the patient have a suspected source of infection? No. Patient's initial sepsis screen is negative. Risk Assessment: Do you want to hurt yourself or someone else? Patient reports no desire to harm self or others. Onset of symptoms was May 27, 2021. 18:46 Method Of Arrival: Ambulatory [facility] 18:46 Acuity: HOLLI 3 ss7 Historical: - Allergies: 18:47 Codeine; ss7 - PMHx: 18:47 Chronic Pancreatitis; Anxiety; biliary chirrosis; Cirrhosis; Hypertension; Arthritis; ss7 - PSHx: 18:47 Appendectomy; Biliary stent removal; Biliary stents; Cholecystectomy; ss7 - Immunization history:: Adult Immunizations up to date, Pneumococcal vaccine is up to date, Flu vaccine is up to date. - Social history:: Smoking status: Patient denies any tobacco usage or history of. Screenin:08 Abuse screen: Denies threats or abuse. Nutritional screening: No deficits noted. ss7 Tuberculosis screening: No symptoms or risk factors identified. Fall Risk IV access (20 points). Assessment: 21:07 General: Appears in no apparent distress. uncomfortable, Behavior is calm, cooperative. ss7 Pain: Complains of pain in upper abdominal pain Noted to be grimacing. Neuro: No deficits noted. Cardiovascular: Heart tones S1 S2. Respiratory: Breath sounds are clear bilaterally. GI: Bowel sounds present X 4 quads. Abdomen is tender to palpation in epigastric area and right upper quadrant. : No deficits noted. EENT: No deficits noted. Derm: No deficits noted. Musculoskeletal: No deficits noted. Vital Signs: 18:48 BP 144 / 110; Pulse 95; Resp 20; Temp 98.5; Pulse Ox 100% ; Weight 81.65 kg; Height 5 ss7 ft. 0 in. (152.40 cm); 21:25 BP 163 / 84; Pulse 92; Resp 18; Temp 98.1; Pulse Ox 98% ; ss7 23:26 BP 184 / 103; Pulse 86; Resp 20; Pulse Ox 98% on R/A; ss7 18:48 Body Mass Index 35.15 (81.65 kg, 152.40 cm) 7 ED Course: 18:12 Patient arrived in ED. ds1 18:47 Triage completed. ss7 20:11 Kyler Flores MD is Attending Physician. irene 21:08 Patient has correct armband on for positive identification. Bed in low position. Call 7 light in reach. 21:08 No provider procedures requiring assistance completed. ss7 21:24 Basic Metabolic Panel Sent. ss7 21:25 LFT's Sent. ss7 21:25 Magnesium Sent. ss7 21:25 NT PRO-BNP Sent. ss7 21:25 Troponin HS Sent. ss7 21:25 Basic Metabolic Panel Sent. ss7 21:37 XRAY Chest (1 view) In Process Unspecified. EDMS 22:23 CT Abd/Pelvis - IV Contrast Only In Process Unspecified. EDMS 06/02 00:06 Geneva Osborne MD is Referral Physician. irene 00:11 Chanel Lehman, LUCIUS is Primary Nurse. sf1 00:40 IV discontinued, intact, bleeding controlled, No redness/swelling at site. Pressure sf1 dressing applied. Administered Medications: 06/01 21:24 Drug: NS 0.9% 500 ml Route: IV; Rate: bolus; Site: left forearm; ss7 22:00 Follow up: IV Status: Completed infusion; IV Intake: 500ml ss7 21:24 Drug: NS 0.9% 1000 ml Route: IV; Rate: 125 ml/hr; Site: left forearm; ss7 23:10 Drug: Pepcid (famotidine) 20 mg Route: IVP; Site: left forearm; ss7 23:27 Follow up: Response: No adverse reaction ss7 23:15 Drug: Zofran (Ondansetron) 4 mg Route: IVP; Site: left forearm; ss7 23:15 Drug: Dilaudid (HYDROmorphone) 1 mg Route: IVP; Site: left forearm; ss7 23:27 Follow up: Response: No adverse reaction ss7 06/02 00:31 Drug: Dilaudid (HYDROmorphone) 1 mg Route: IVP; Site: left forearm; sf1 Intake: 06/01 22:00 IV: 500ml; Total: 500ml. ss7 Outcome: 06/02 00:08 Discharge ordered by MD. bonilla 00:39 Discharged to home ambulatory. sf1 00:39 Condition: good 00:39 Discharge instructions given to patient, Instructed on discharge instructions, follow up and referral plans. Demonstrated understanding of instructions, follow-up care, medications, Prescriptions given X 3. 00:40 Patient left the ED. sf1 Signatures: Dispatcher [employer] EDNM Kyler Flores MD MD cha Sanford, Demi ds1 Chanel Lehman RN RN sf1 Jodie Pan RN RN 7 Corrections: (The following items were deleted from the chart) 06/01 18:48 18:47 PMHx: Pneumonia; 7 7 21:09 21:09 EKG completed in triage. Results shown to MD. alcocer 7
--- NOTE | 2021-06-02 00:09 | EDPHYS ---
Physician Documentation [facility] Name: Yessenia Aleman Age: 60 yrs Sex: Female : 1960 Arrival Date: 06/01/2021 Time: 18:12 Bed Treatment Private MD: Kyler Santos HPI: 06/01 23:01 This 60 yrs old Female presents to ER via Ambulatory with complaints of irene Abdominal Pain, Back Pain, Nausea. 23:01 The patient presents with pain that is acute, with no known mechanism of injury. The irene symptoms are located in the lumbar area. Onset: The symptoms/episode began/occurred yesterday. Historical: - Allergies: 18:47 Codeine; ss7 - PMHx: 18:47 Chronic Pancreatitis; Anxiety; biliary chirrosis; Cirrhosis; Hypertension; Arthritis; ss7 - PSHx: 18:47 Appendectomy; Biliary stent removal; Biliary stents; Cholecystectomy; ss7 - Immunization history:: Adult Immunizations up to date, Pneumococcal vaccine is up to date, Flu vaccine is up to date. - Social history:: Smoking status: Patient denies any tobacco usage or history of. ROS: 23:02 Constitutional: Negative for fever, chills, and weight loss, Eyes: Negative for injury, irene pain, redness, and discharge, ENT: Negative for injury, pain, and discharge, Neck: Negative for injury, pain, and swelling, Cardiovascular: Negative for chest pain, palpitations, and edema, Respiratory: Negative for shortness of breath, cough, wheezing, and pleuritic chest pain, Back: Negative for injury and pain, : Negative for injury, bleeding, discharge, and swelling, MS/Extremity: Negative for injury and deformity, Skin: Negative for injury, rash, and discoloration, Neuro: Negative for headache, weakness, numbness, tingling, and seizure, Psych: Negative for depression, anxiety, suicide ideation, homicidal ideation, and hallucinations, Allergy/Immunology: Negative for hives, rash, and allergies, Endocrine: Negative for neck swelling, polydipsia, polyuria, polyphagia, and marked weight changes, Hematologic/Lymphatic: Negative for swollen nodes, abnormal bleeding, and unusual bruising. 23:02 Abdomen/GI: Positive for abdominal pain, nausea and vomiting, of the epigastric area and right upper quadrant. Exam: 23:02 Constitutional: This is a well developed, well nourished patient who is awake, alert, irene and in no acute distress. Head/Face: Normocephalic, atraumatic. Eyes: Pupils equal round and reactive to light, extra-ocular motions intact. Lids and lashes normal. Conjunctiva and sclera are non-icteric and not injected. Cornea within normal limits. Periorbital areas with no swelling, redness, or edema. ENT: Nares patent. No nasal discharge, no septal abnormalities noted. Tympanic membranes are normal and external auditory canals are clear. Oropharynx with no redness, swelling, or masses, exudates, or evidence of obstruction, uvula midline. Mucous membranes moist. Neck: Trachea midline, no thyromegaly or masses palpated, and no cervical lymphadenopathy. Supple, full range of motion without nuchal rigidity, or vertebral point tenderness. No Meningismus. Chest/axilla: Normal chest wall appearance and motion. Nontender with no deformity. No lesions are appreciated. Cardiovascular: Regular rate and rhythm with a normal S1 and S2. No gallops, murmurs, or rubs. Normal PMI, no JVD. No pulse deficits. Respiratory: Lungs have equal breath sounds bilaterally, clear to auscultation and percussion. No rales, rhonchi or wheezes noted. No increased work of breathing, no retractions or nasal flaring. Back: No spinal tenderness. No costovertebral tenderness. Full range of motion. Female : Normal external genitalia. Skin: Warm, dry with normal turgor. Normal color with no rashes, no lesions, and no evidence of cellulitis. MS/ Extremity: Pulses equal, no cyanosis. Neurovascular intact. Full, normal range of motion. Neuro: Awake and alert, GCS 15, oriented to person, place, time, and situation. Cranial nerves II-XII grossly intact. Motor strength 5/5 in all extremities. Sensory grossly intact. Cerebellar exam normal. Normal gait. Psych: Awake, alert, with orientation to person, place and time. Behavior, mood, and affect are within normal limits. 23:02 ECG was reviewed by the Attending Physician. 23:02 Abdomen/GI: Inspection: distension, Bowel sounds: normal, Palpation: moderate abdominal tenderness, in the epigastric area and right upper quadrant, Liver: no appreciated palpable abnormalities, Hernia: not appreciated. Vital Signs: 18:48 BP 144 / 110; Pulse 95; Resp 20; Temp 98.5; Pulse Ox 100% ; Weight 81.65 kg; Height 5 ss7 ft. 0 in. (152.40 cm); 21:25 BP 163 / 84; Pulse 92; Resp 18; Temp 98.1; Pulse Ox 98% ; ss7 23:26 BP 184 / 103; Pulse 86; Resp 20; Pulse Ox 98% on R/A; ss7 18:48 Body Mass Index 35.15 (81.65 kg, 152.40 cm) ss7 MDM: 20:11 Patient medically screened. irene 23:05 Differential diagnosis: chronic back pain, Fatigue Obesity Osteoarthritis Osteoporosis irene Peptic Ulcer Pyelonephritis ruptured disc, Hepatitis, pancreatitis, Peritonitis, Pyelonephritis, Ureterolithiasis, urinary tract infection. Data reviewed: vital signs, nurses notes, lab test result(s), EKG, radiologic studies, CT scan, plain films. Data interpreted: monitoring coordinator: rate is 92 beats/min, rhythm is regular, Pulse oximetry: on room air is 98 %. Test interpretation: by ED physician or midlevel provider: ECG, plain radiologic studies. Counseling: I had a detailed discussion with the patient and/or guardian regarding: the historical points, exam findings, and any diagnostic results supporting the discharge/admit diagnosis, lab results, radiology results. 06/01 20:32 Order name: Basic Metabolic Panel [facility] 06/01 20:32 Order name: CBC with Diff; Complete Time: 22:42 [facility] 06/01 20:32 Order name: LFT's; Complete Time: 22:42 [facility] 06/01 20:32 Order name: Magnesium; Complete Time: 22:42 [facility] 06/01 20:32 Order name: NT PRO-BNP; Complete Time: 22:42 [facility] 06/01 20:32 Order name: PT-INR; Complete Time: 22:42 [facility] 06/01 20:32 Order name: Troponin HS; Complete Time: 22:42 [facility] 06/01 20:32 Order name: XRAY Chest (1 view); Complete Time: 22:42 [facility] 06/01 20:32 Order name: Lipase; Complete Time: 22:42 [facility] 06/01 20:32 Order name: CT Abd/Pelvis - IV Contrast Only [facility] 06/01 20:32 Order name: SARS-COV-2 RT PCR (Document "Date of Onset" if Symptomatic); Complete Time: [facility] :06/01 20:32 Order name: AMMONIA; Complete Time: :42 [facility] 06/01 20:32 Order name: Basic Metabolic Panel; Complete Time: 22:42 [facility] 06/01 21:36 Order name: Urine Dipstick-Ancillary; Complete Time: 22:42 [facility] 06/01 20:32 Order name: EKG; Complete Time: 20:33 [facility] 06/01 20:32 Order name: Cardiac monitoring; Complete Time: 21:24 [facility] 06/01 20:32 Order name: EKG - Nurse/Tech; Complete Time: 21:24 [facility] 06/01 20:32 Order name: IV Saline Lock; Complete Time: : [facility] 06/01 20:32 Order name: Labs collected and sent; Complete Time: 21:24 [facility] 06/01 20:32 Order name: O2 Per Protocol; Complete Time: : [facility] 06/01 20:32 Order name: O2 Sat Monitoring; Complete Time: : [facility] 06/01 20:32 Order name: Urine Dipstick-Ancillary (obtain specimen); Complete Time: 21:57 [facility] EC:02 Rate is 92 beats/min. Rhythm is regular. QRS [place] is Normal. MI interval is normal. QRS irene interval is normal. QT interval is normal. No Q waves. T waves are Normal. No ST changes noted. Clinical impression: NSR w/ Non-specific ST/T Changes and No evidence of ischemia. Interpreted by me. Reviewed by me. Administered Medications: 21:24 Drug: NS 0.9% 500 ml Route: IV; Rate: bolus; Site: left forearm; 7 22:00 Follow up: IV Status: Completed infusion; IV Intake: 500ml [facility] 21:24 Drug: NS 0.9% 1000 ml Route: IV; Rate: 125 ml/hr; Site: left forearm; ss7 23:10 Drug: Pepcid (famotidine) 20 mg Route: IVP; Site: left forearm; ss7 23:27 Follow up: Response: No adverse reaction 7 23:15 Drug: Zofran (Ondansetron) 4 mg Route: IVP; Site: left forearm; ss7 23:15 Drug: Dilaudid (HYDROmorphone) 1 mg Route: IVP; Site: left forearm; ss7 23:27 Follow up: Response: No adverse reaction ss7 06/02 00:31 Drug: Dilaudid (HYDROmorphone) 1 mg Route: IVP; Site: left forearm; sf1 Disposition Summary: 06/02/21 00:08 Discharge Ordered Location: Home irene Problem: new irene Symptoms: have improved irene Condition: Stable irene Diagnosis - Upper abdominal pain, unspecified irene - Unspecified cirrhosis of liver - PRIMARY BILIARY CIRRHOSIS irene - Essential (primary) hypertension irene - Coronavirus infection, unspecified irene Followup: irene - With: Private Physician - When: 2 - 3 days - Reason: Recheck today's complaints, Continuance of care, Re-evaluation by your physician Followup: irene - With: Geneva Osborne MD - When: 2 - 3 days - Reason: Recheck today's complaints, Continuance of care, Re-evaluation by your physician Discharge Instructions: - Discharge Summary Sheet irene - Abdominal Pain, Adult irene - Cirrhosis irene - Abdominal Pain, Adult, [id number] irene - Hypertension, Adult irene - Hypertension, Adult, [id number] irene - How to Take Your Blood Pressure, [id number] irene - Managing Your Hypertension irene - COVID-19 irene - COVID-19: What Your Test Results Mean - [facility] irene - COVID-19 Frequently Asked Questions irene - COVID-19: Quarantine vs. Isolation - [facility] irene Forms: - Medication Reconciliation Form irene - Thank You Letter irene - Antibiotic Education irene - Prescription Opioid Use [facility] Prescriptions: - ondansetron 4 mg Oral tablet,disintegrating - take 1 tablet by ORAL route every 8 hours; 20 tablet; Refills: 0, Product irene Selection Permitted - Pepcid 20 mg Oral Tablet - take 1 tablet by ORAL route every 12 hours for 10 days; 30 tablet; Refills: 0, [facility] Product Selection Permitted - dicyclomine 20 mg Oral Tablet - take 1 tablet by ORAL route 4 times per day; 28 tablet; Refills: 0, Product irene Selection Permitted Signatures: Dispatcher [employer] Kyler Arana MD MD cha Fillers, Samantha, RN RN sf1 Jodie Pan RN RN ss7 Corrections: (The following items were deleted from the chart) 06/01 18:48 18:47 PMHx: Pneumonia; ss7 ss7
[2021-06-02] MEDS ORDERED: HYDROMORPHONE HCL 1 MG/ML INJ ONE (00:30)
[2021-06-02 03:04] VITALS: TEMP 98.1; O2SAT 98
[2021-06-02 03:06] VITALS: BP 184/103
--- NOTE | 2021-06-02 13:05 | EKG ---
Test Date: 2021-06-01 Test Time: 20:43:30 Certified Public Accountant: ISAIAH MEASUREMENT RESULTS: Intervals: Rate: 92 CA: 168 QRSD: 78 QT: 354 QTc: 437 [place]: P: 50 CA: 168 QRS: 23 T: 61 INTERPRETIVE STATEMENTS: Normal sinus rhythm Possible Anterior infarct, age undetermined Abnormal ECG Compared to ECG 01/19/2021 21:27:56 Myocardial infarct finding now present Electronically Signed On 06-02-21 13:02:57 LINER CHECKER by Evan Leblanc
--- NOTE | 2021-06-02 13:47 | RAD REPORT ---
EXAM DESCRIPTION: CT - Abdomen Pelvis W Contrast - 06/02/2021 6:43 am COMPARISON: CT abdomen pelvis March 17, 2021 CLINICAL HISTORY: [facility] MAIN ABD PAIN TECHNIQUE: CT of the abdomen and pelvis was acquired with IV contrast material. Coronal and sagitt al reconstructions were obtained. Automated exposure control was utilized on this examination as a dose lowering technique. FINDINGS: Lung bases: Clear. Liver: Normal. Gallbladder and biliary: Cholecystectomy. Pneumobilia is noted. Pancreas: Normal. Spleen: Normal. Adrenal glands: Normal adrenal glands. Kidneys: Normal kidneys Stomach and Small Bowel: The stomach and small bowel are normal. Urinary bladder: Normal. Uterus and Adnexa: Normal. Colon and Appendix: The colon is unremarkable. No evidence of appendicitis. Retroperitoneum and lymph nodes: Normal. Vascular: Unremarkable. Peritoneal cavity: No ascites or free air. Musculoskeletal and soft tissues: Soft tissues are unremarkable. Lumbar spondylosis is present. No ag gressive bone lesions. No compression fracture. IMPRESSION: 1. No acute intra-abdominal abnormality. 2. Chronic pneumobilia. Electronically signed by: Kaiser Vaca MD 06/01/2021 11:44 PM WELLNESS PROGRAM COORDINATOR Due to temporary technical issues with the PACS/Fluency reporting system, reports are being signed by the in house radiologist without review as a courtesy to ensure prompt reporting. The interpreting r adiologist is fully responsible for the content of the report.
== END 2021-06-02 00:40 | disposition home or self-care (01) ==
LOC: ER 18:08
DX: U07.1 COVID-19 (principal); K74.3 Primary biliary cirrhosis; I10 Essential (primary) hypertension; Z88.5 Allergy status to narcotic agent
CPT/HCPCS: 96361; 93005; 85025; 80048; 36415; 82140; 83735; 85610; 80076; 81003; 84484; 83690; 83880; 74177; 71045; 96375; 96374; 99284; U0003; Q9967; J1170 ×2; J7040; J7030; J2405

== ENCOUNTER 2021-12-12 17:44 | Emergency (ER) | payer OTHER ==
--- OUTSIDE RECORDS SUMMARY | 2021-12-12 18:27 | XMS REPORT | Continuity of Care Document ---
:1960 Author Organization [facility] t Address [address] [place] [address] Care Team Providers Name Role Phone INDIRA MONTERROSO Primary Care Physician Unavailable Jeannie Slade Attending Clinician Unavailable GULSHAN PIPER Attending Clinician Unavailable KENROY AVILEZ Attending Clinician Unavailable MOISE GAMEZ Attending Clinician Unavailable ANA MARÍA PENNY Attending Clinician Unavailable BRAULIO NGUYỄN Attending Clinician Unavailable VIRA WASHBURN Attending Clinician Unavailable MOGHE, AKSHATA Attending Clinician Unavailable MOGGURWINDER, AKSHATA Attending Clinician Unavailable MARIANA RAMIREZ Attending Clinician Unavailable Mariana Ramirez MD Attending Clinician ZULEMA RODRIGUEZ JR Attending Clinician Unavailable Jennifer Cervantes, Zulema WHALEN Attending Clinician Abe Arana CRNA Attending Clinician Margarito Jerome MD Attending Clinician Doctor Unassigned, [place] Attending Clinician Unavailable Only, Adc Test Attending Clinician Unavailable Pob, Adc Lab Main Attending Clinician Unavailable Trinidad KAN, Cny Steiner Attending Clinician Unavailable RAF GREENE Attending Clinician Unavailable Collin ORTIZ, K Sydnie Attending Clinician Raf Greene DO Attending Clinician Wayne WEBSTER, Won Roper Attending Clinician MARU BAEZ Attending Clinician Unavailable Maru Baez DO Attending Clinician Lanny Hussein RN Attending Clinician Unavailable FRED GRADY Attending Clinician Unavailable Nasra HALL, Meka Richey Attending Clinician Micaela WEBSTER, Liliya Attending Clinician Fred Grady MD Attending Clinician Gulshan Piper MD Attending Clinician EBCONSUELO OTTO Attending Clinician Unavailable Ebrahifalguni CROWN ASSEMBLY MACHINE SET UP MECHANIC, Ranrisa Attending Clinician Kelly KAN, Kelsy Lemon Attending Clinician Unavailable Phillip [facility] Attending Clinician Unavailable Korina Zhao Attending Clinician KORINA ARANDA Attending Clinician Unavailable TOSHA PALACIO Attending Clinician Unavailable Gustavo, Phillip Hwang Uc Attending Clinician Unavailable Tosha Palacio MD Attending Clinician MEKA HAMMONDS Attending Clinician Unavailable ROSALINDA FISHER Attending Clinician Unavailable Rosalinda Fisher MD Attending Clinician Karo KAN, Karlene Hawley Attending Clinician Unavailable Adum MD, Vira L Attending Clinician Zulema CROWN ASSEMBLY MACHINE SET UP MECHANIC, Alirio F Attending Clinician ALIRIO POOLE F Attending Clinician Unavailable Kadi Duggan MD Attending Clinician Uriel Santo MD Attending Clinician URIEL SANTO Attending Clinician Unavailable Maisha Bledsoe Attending Clinician MAISHA REYES Attending Clinician Unavailable SULAIMAN MARSH Attending Clinician Unavailable Vera WEBSTER, Moise Mason Attending Clinician Jaki POLANCO Attending Clinician Unavailable Rayray Ayala MD, Leonard Attending Clinician Asaf CROWN ASSEMBLY MACHINE SET UP MECHANIC, Kirstin Attending Clinician Lab, Adc Fam Pob I Attending Clinician Unavailable Kayy PERRIN, Loyda Attending Clinician Jeannie Slade Attending Clinician Erasmo Grayson MD Attending Clinician Katheryn Retana MD Attending Clinician Diego Grigsby MD, Kobi Attending Clinician ERASMO GRAYSON Attending Clinician Unavailable Gary Skaggs DO Attending Clinician GARY SKAGGS Attending Clinician Unavailable Steven Vasquez MD Attending Clinician Ector Barnett S Attending Clinician Pricilla Smith RN Attending Clinician Sundar Brooke MD Attending Clinician Maxim WEBSTER, Carlito Attending Clinician Gisselle Mai CHIP UNLOADER-C Attending Clinician Unavailable Boogie Cox Attending Clinician Unavailable PROVIDER, ED TEMP Attending Clinician Unavailable HOMAR LOVELACE Attending Clinician Unavailable To, [place] Attending Clinician Unavailable GREGORY PONCE Attending Clinician Unavailable DIANA CASTILLO Attending Clinician Unavailable GULSHAN PIPER Admitting Clinician Unavailable KENROY AVILEZ Admitting Clinician Unavailable MOISE GAMEZ Admitting Clinician Unavailable ANA MARÍA PENNY Admitting Clinician Unavailable BRAULIO NGUYỄN Admitting Clinician Unavailable RAF GREENE Admitting Clinician Unavailable ZULEMA RODRIGUEZ JR Admitting Clinician Unavailable Jennifer Cervantes, DPZulema Amezquita Admitting Clinician WON MALONE Admitting Clinician Unavailable Won Malone MD Admitting Clinician MARU BAEZ Admitting Clinician Unavailable LILIYA HINOJOSA Admitting Clinician Unavailable Liliya Hinojosa MD Admitting Clinician Gulshan Piper MD Admitting Clinician MARIANA RAMIREZ Admitting Clinician Unavailable CONSUELO AVENDAÑO Admitting Clinician Unavailable MEKA HAMMONDS Admitting Clinician Unavailable ROSALINDA FISHER Admitting Clinician Unavailable ALIRIO POOLE Admitting Clinician Unavailable Kadi Duggan MD Admitting Clinician KADI DUGGAN Admitting Clinician Unavailable Moise Gamez MD Admitting Clinician Jaki POLANCO Admitting Clinician Unavailable Kobi Mcdermott MD Admitting Clinician ERASMO GRAYSON Admitting Clinician Unavailable GARY SKAGGS Admitting Clinician Unavailable Carlito Pan MD Admitting Clinician Boogie Cox Admitting Clinician Unavailable Payers Payer Name Policy Type Policy Number Effective Date Expiration Date S nasra E Ink [id number] 2021spring 00:00:00 MEDICARE PART A [id number] 2015 \\T\\ B 00:00[id number] 2018 00:00:00 MEDICARE A B [id number] 2015 00:00:00 CIGNA [id number] 2018 HMO/POS/OPEN 00:00:00 ACCESS BCBS OS [id number] 2010 2020 POS/PPO/EPO 00:00:00 00:00:00 Problems Condition Condition Condition Status Onset Resolution Last Treating Co mments Source Name Details Category Date Date Treatment Clinician Date RUQ pain RUQ pain Disease Active Unive rs 5-20 ity of 00:00: [place] [facility] Acute on Acute on Disease Active Unive rs chronic chronic 4-10 [place]y of [place]it [place]it [place] 00 [facility] 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 [place] of cirrhosis [place] [facility] Pancreatit Pancreatit Disease Active [facility] is, acute is, acute 5-25 [facility] s 00:00: [address] Primary Primary Disease Active [facility] biliary biliary 5[facility]16 [facility] cirrhosis cirrhosis 00:00: [facility] brandy 00 Center S/P ERCP S/P ERCP Disease [facility] 00:00: [facility] 00 [place] Cerebrovas Cerebrovas Disease Active 2020- U nivers cular cular 0-22 ity of accident accident 00:00: [place] (CVA) due (CVA) due 00 [facility] 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 Arthritis Arthritis Disease Active 2019-04 Uni vers 0-21 ity of 00:00: [place] [facility] Toxic Toxic Disease Active 2019- Univers metabolic metabolic 0-20 ity of encephalop encephalop 00:00: [place] 00 [facility] Altered Altered Disease Active 2019-04 Univers mental mental 0-18 ity of status status 00:00: [place] 00 [facility] Abdominal Abdominal Disease Active 2019- Uni vers pain pain 8-03 ity of 00:00: [place] 00 [facility] Peripheral Peripheral Disease Active 2019-0 U nivers nerve nerve 7-10 ity of disease disease 00:00: [place] 00 Medical Branch Choledocho Choledocho Disease Active 2018-0 U nivers lithiasis lithiasis 7-20 ity of 00:00: [place] 00 [facility] Constipati Constipati Disease Active 2018-0 U nivers on on 7-18 ity of 00:00: [place] 00 [facility] Acute Acute Disease Active 2018-0 Univers appendicit appendicit 6-10 it y of is is 00:00: [place] 00 [facility] Transamini Transamini Disease Active U nivers tis tis 8-17 ity of 00:00: [place] 00 [facility] Acute Acute Disease Active 2017- Univers cystitis cystitis 8-15 ity of without without 00:00: [place] hematuria hematuria 00 [facility] Branch History of History of Disease Active U nivers biliary biliary 8-15 ity of duct [place] 00 [facility] Branch 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 8-15 it y of vomiting vomiting 00:00: [place] with with 00 Medical nausea nausea Branch Intractabl Intractabl Disease Active U nivers e e 8-15 ity of epigastric epigastric [place] abdominal abdominal 00 [facility] pain pain Branch Obesity Obesity Disease Active 2015-04 Univers (BMI (BMI 1-17 ity of 30-39.9) 30-39.9) 00:00: [place] 00 [facility] Abdominal Abdominal Disease Active [facility] pain, pain, 5-07 [facility] acute, acute, 00:00: Medical right right 00 Center upper upper quadrant quadrant Hypokalemi Hypokalemi Disease Active [facility] a a 7-27 [facility] 00:00: Medical 00 Center Chronic Chronic Disease Active [address] [facility] pain pain 7-27 [facility] syndrome syndrome 00:00: Medica l 00 Center Hypokalemi Hypokalemi Disease Active [facility] c periodic c periodic 7-27 Shari kes paralysis paralysis 00:00: [facility] 00 Center Biliary Biliary Disease Active [facility] disease disease 5-16 [facility] 00:00: Medical 00 Center Abdominal Abdominal Disease Active [facility] pain, pain, 5-09 [facility] other other 00:00: Medical specified specified 00 Cent er site site Primary Primary Disease Active [facility] biliary biliary 5-05 [facility] cholangiti cholangiti 00:00: Me dical s s 00 Center Acute Acute Disease Active [facility] pancreatit pancreatit 5-05 [place] [facility] is is 00:00: Medical 00 Center Chronic Chronic Disease Active 2012-[address] pancreatit pancreatit 1-14 [place] kes is is 00:00: Medical 00 Center Elevated Elevated Disease Active 2012-04 [facility] liver liver 04-22 [facility] enzymes enzymes 00:00: Medical 00 [place] Hypertensi Hypertensi Disease Active 2012-[address] on on 04-22 [facility] 00:00: [facility] 00 [place] Nausea & Nausea & Disease Active 2012-04 [facility] vomiting vomiting 04-22 [facility] 00:00: [facility] 00 [place] Fatty Fatty Disease Active 2012-[address] liver liver 04-22 [facility] 00:00: Medical 00 [place] Alcohol Alcohol Disease Active 2012-[address] [facility] use use 04-22 [facility] 00:00: Medical 00 [place] Essential Essential Disease Active 2012-04 Uni vers hypertensi hypertensi 04-22 it y of on on 00:00: [place] 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 Acetamin Propensi Active Itching Unive rs ophen-Co ty to 6-17 ity of deine adverse 00:00: [place] reaction Medical Branch Codeine Propensi Active Itching 2014-04 Univer s ty to 0-31 ity of adverse 00:00: [place] reaction [facility] Branch Codeine Drug Active Rash 2012-[address] [facility] Allergy 0-30 [facility] 00:00: Medical 00 [place] Codeine Propensi Active Rash 2012-04 Univers ty to 0-30 ity of adverse 00:00: [place] reaction Medical s Branch CODEINE DRUG Active High ITCHING 2012-04 Univers INGREDI 0-30 ity of 00:00: [place] [address] [facility] CODEINE Allergy Active High Rash 2012-04 [facility] 0-30 00:00: 00 NO KNOWN Drug Active Univers ALLERGIE Class ity of S [facility] Family History Family Member Diagnosis Comments Start Date Stop Date Source Natural brother Cancer [facility] Social History Social Habit Start Date Stop Date Quantity Comments Source History [facility] University o f Alcohol Std [place] [facility] Drinks Branch History [facility] University o f Alcohol Binge [place] Medic al Branch History [facility] University o f Alcohol Comment [place] [facility] ical [facility] Exposure to 2021-10-23 2021-11-02 Not sure [facility] SARS-CoV-2 00:00:00 04:45:00 [place] [facility] (event) Branch Alcohol intake 2020-09-06 2020-09-06 Current [facility] es 00:00:00 00:00:00 non-drinker of Medical Ce nter alcohol (finding) Tobacco use and 2018-11-15 2018-11-15 Smokeless tobacco Un iversity of exposure 00:00:00 00:00:00 non-user [place] [facility] History [facility] 2018-11-15 2018-11-15 1 University o f Alcohol Frequency 00:00:00 00:00:00 [facility] edical Branch History [facility] 2018-11-15 2018-11-15 3 University o f Financial 00:00:00 00:00:00 [place] [facility] History [facility] Food 2018-11-15 2018-11-15 1 Univers ity of Worry 00:00:00 00:00:00 [place] [facility] History [facility] Food 2018-11-15 2018-11-15 1 Univers ity of Scarcity 00:00:00 00:00:00 [place] [facility] History [facility] 2018-11-15 2018-11-15 2 University o f Transport Med 00:00:00 00:00:00 [place] Medic al Branch History [facility] 2018-11-15 2018-11-15 2 University o f Transport Non-Med 00:00:00 [facility] [place] Sex Assigned At [birth year] [facility] 00:00:00 00:00:00 [facility] Smoking Status Start Date Stop Date Source Never smoked tobacco [facility] [place] [facility] Medications Ordered Filled Start Stop Current Ordering Indication Dosage Frequency Signature Comments Components Source Medication Medication Date Date Medication? Clinician (SIG) Name Name ondansetron 4mg 4 mg, Slow Univers (ZOFRAN 11-02 IV Push, ity of (PF)) 12:30: 12:28 ONCE, 1 [place] injection 4 00 :00 dose, On Medi brandy mg Lilian Branch 11/02/21 at 0730, [place] morpHINE (4 2021- No 4mg 4 mg, Slow Univers mg/mL) 11-02 IV Push, ity of injection 4 12:30: 12:30 [place]CE[place] 1 [place] mg [place] :00 dose, On Medical [place]ian Branch 11/02/21 at 0730, STAT iopamidol 2021- No [id number] 50mL 50 mL, U nivers (ISOVUE 11-02 Intravenou ity o f 370-500 mL) 12:16: 12:16 s, ONCE, 1 [place] injection 00 :00 dose, On Medica l 50 mL [facility] Branch 11/02/21 at 0730, Routine ondansetron 2021- No 4mg 4 mg, Slow Univers (ZOFRAN 11-02 IV Push, ity of (PF)) 11:00: 10:41 ONCE, 1 [place] injection 4 00 :00 dose, On Medi brandy mg [facility] Branch 11/02/21 at 0600, [place] FENTanyl PF No 75ug 75 mcg, Un you (SUBLIMAZE 11-02 Slow IV ity o f (PF)) 11:00: 10:42 Push, [place] injection 00 :00 ONCE, 1 Medical 75 mcg dose, On Branch Lilian 11/02/21 at 0600, STAT ondansetron 0 Yes [id number] 4mg Take 1 Univers 4 mg 11-02 tablet by ity of disintegrat 00:00: mouth [place] ing tablet 00 every 8 Medica l (eight) Branch hours as needed for Nausea and Vomiting (N/V). ARIPiprazol 0 Yes 10mg Take 10 mg Univers e 10 mg 6-18 by mouth ity of tablet 22:55: daily. [address] busPIRone 0 Yes 15mg Take 15 mg Un you 15 mg 6-18 by mouth ity of tablet 22:55: as needed. [address] omeprazole 0 Yes 20mg Take 20 mg U nivers 20 mg 6-18 by mouth ity of tablet 22:55: daily. [address] ARIPiprazol 2022-0 Yes 10mg Take 10 mg Univers e 10 mg 6-18 by mouth ity of tablet 22:55: daily. [address] busPIRone Yes 15mg Take 15 mg Un you 15 mg 6-18 by mouth ity of tablet 22:55: as needed. [address] omeprazole Yes 20mg Take 20 mg U nivers 20 mg 6-18 by mouth ity of tablet 22:55: daily. [address] HYDROmorphO Yes .2mg 0.2 mg, Uni vers ne 17 Slow IV ity of (DILAUDID) 14:57: Push, [place] injection 31 Q5MIN PRN, Medi brandy 0.2 mg 10 doses, Branch Starting on Sat09/29/21 at 0957, Until Discontinu ed, Routine, Pain (scale 7-10), PACU
Us e approved by (Faculty): PACU USE -ANESTHESI A SERVICE-HY DROMORPHON E INJECTIONS FENTanyl PF 2021- No 25ug 25 mcg, Un you (SUBLIMAZE 09-29 Slow IV ity o f (PF)) 14:57: 15:18 Push, [place] injection 31 :00 Q5MIN PRN, Medi brandy 25 mcg 4 doses, Branch Starting on Sat09/29/21 at 0957, Until Sat09/29/21 at 1018, Routine, Pain (scale 4-6), PACU HYDROmorphO 2021- No .2mg 0.2 mg, Un you ne 09-29 Slow IV ity of (DILAUDID) 14:57: 18:05 Push, [place] injection 31 :21 Q5MIN PRN, Medi brandy 0.2 mg 10 doses, Branch Starting on Sat09/29/21 at 0957, Until Sat09/29/21 at 1305, Routine, Pain (scale 7-10), PACU
Us e approved by (Faculty): PACU USE -ANESTHESI A SERVICE-HY DROMORPHON E INJECTIONS FENTanyl PF 2021-2021- No 25ug 25 mcg, Un you (SUBLIMAZE 09-29 Slow IV ity o f (PF)) 14:57: 15:18 Push, [place] injection 31 :00 Q5MIN PRN, Medi brandy 25 mcg 4 doses, Branch Starting on Sat09/29/21 at 0957, Until Sat09/29/21 at 1018, Routine, Pain (scale 4-6), PACU ondansetron Yes 4mg 4 mg, Slow Univers (ZOFRAN 09-29 IV Push, ity of (PF)) 14:43: PRN, 1 [place] injection 4 33 dose, Medical mg Starting Branch on Sat09/29/21 at 0943, Until Discontinu ed, Routine, Nausea and Vomiting (N/V), PACU ondansetron 2021- No 4mg 4 mg, Slow Univers (ZOFRAN 09-29 IV Push, ity of (PF)) 14:43: 18:05 PRN, 1 [place] injection 4 33 :21 dose, Medical mg Starting Branch on Sat09/29/21 at 0943, Until Sat09/29/21 at 1305, Routine, Nausea and Vomiting (N/V), PACU bupivacaine 2021- No PRN, Unive rs liposome 09-29 Starting ity of (PF) 14:30: 14:39 on Sat (EXPAREL 00 :43 09/29/21 at Medic al (PF)) 1.3 % 0930, Branch (13.3 Until Fri mg/mL) 09/29/21 at injection 0939, Routine, Intra-op ketorolac 2021- No Slow IV Univ ers (TORADOL) 09-29 Push, ONCE ity of injection 14:27: 14:44 INTRA [place] 00 :22 PROCEDURE, Medical Starting Branch on Sat09/29/21 at 0927, Until Sat09/29/21 at 0944, Routine, Intra-op ondansetron 2021- No Slow IV Un you (ZOFRAN 09-29 Push, ONCE ity o f (PF)) 13:29: 14:44 INTRA [place] injection 00 :22 PROCEDURE, Medi brandy Starting Branch on Sat09/29/21 at 0829, Until Sat09/29/21 at 0944, Routine, Intra-op acetaminoph 2021- No IV Unive rs en ADULT 09-29 Infusion, ity o f (OFIRMEV) 13:23: 14:44 Administer [place] injection 00 :22 over 15 Medical Minutes, Branch ONCE INTRA PROCEDURE, Starting on Sat09/29/21 at 0823, Until Sat09/29/21 at 0944, Routine, Intra-op sodium 2021- No PRN, Univers chloride 09-29 Starting ity of 0.9 % 13:21: 14:39 on Sat [place] irrigation 00 :43 09/29/21 at [facility] ical solution 0821, Branch Until Sat09/29/21 at 0939, Intra-op ceFAZolin 2021- No Slow IV Univ ers (ANCEF) 09-29 Push, ONCE ity o f injection 13:14: 14:44 INTRA [place] 00 :22 PROCEDURE, Medical Starting Branch on Sat09/29/21 at 0814, Until Sat09/29/21 at 0944, [place], Intra-op bupivacaine 2021- No PRN, Unive rs (preserv 09-29 Starting ity of free) 0.5% 13:06: 14:39 on Sat [place] (SENSORCAIN 00 :43 09/29/21 at [place] dical E MPF) 0.5 0806, Branch % (5 mg/mL) Until Sat injection 09/29/21 at 0939, Routine, Intra-op propofoL IV 2021- No IV Unive rs infusion 09-29 Infusion, ity o f 13:02: 14:44 ONCE INTRA [place] 00 :22 PROCEDURE, Medical Starting Branch on Sat09/29/21 at 0802, Until Sat09/29/21 at 0944, Routine, Intra-op propofoL IV 2021- No IV Unive rs infusion 09-29 Infusion, ity o f 13:02: 14:44 CONTINUOUS [place] 00 :22 PRN, Medical Starting Branch on Sat09/29/21 at 0802, Until Sat09/29/21 at 0944, Routine, Intra-op FENTanyl PF 2021- No Slow IV Un you (SUBLIMAZE 09-29 Push, ONCE it y of (PF)) 13:02: 14:44 INTRA [place] injection 00 :22 PROCEDURE, Medi brandy Starting Branch on Sat09/29/21 at 0802, Until Sat09/29/21 at 0944, Routine, Intra-op lactated 2021- No IV Univers ringers IV 09-29 Infusion, ity of infusion 12:53: 14:44 CONTINUOUS [place] 00 :22 PRN, Medical Starting Branch on Sat09/29/21 at 0753, Until Sat09/29/21 at 0944, Routine, Intra-op midazolam 2021- No IV Push, Uni vers (VERSED) 09-29 ONCE INTRA ity of injection 12:53: 14:44 PROCEDURE, [place] 00 :22 Starting Medical on Sat Branch 09/29/21 at 0753, Until Sat09/29/21 at 0944, Routine, Intra-op lactated 2021- No 1000mL at 42 Unive rs ringers IV 09-2917 mL/hr, ity of infusion 11:30: 11:49 1,000 mL, Archie as 1,000 mL 00 :00 IV Medical Infusion, Branch ONCE, 1 dose, On Sat09/29/21 at 0630, Routine, DSU Pre-op lactated 2021- No 1000mL at 42 Unive rs ringers IV 09-2917 mL/hr, ity of infusion 11:30: 11:49 1,000 mL, Archie as 1,000 mL 00 :00 IV Medical Infusion, Branch ONCE, 1 dose, On Sat09/29/21 at 0630, Routine, DSU Pre-op traZODone Yes 100mg Take 100 Uni vers 100 mg 6-17 mg by ity of tablet 11:00: mouth at [place] 16 bedtime. Medical Branch losartan Yes 100mg Take 100 Univ ers 100 mg 6-17 mg by ity of tablet 11:00: mouth [place] 16 daily. Medical Branch gabapentin Yes 300mg Take 300 Un you 300 mg 6-17 mg by ity of capsule 11:00: mouth 2 [place] 16 (two) Medical times Branch daily. QUEtiapine Yes 400mg Take 400 Un you (SEROQUEL) 6-17 mg by ity of 400 mg 11:00: mouth [place] tablet 16 daily. Medical Patient Branch doesn't like to take it ARIPiprazol 2021-0 Yes 10mg Take 10 mg Univers e 10 mg 6-17 by mouth ity of tablet 11:00: daily. [place] [address] Medical Branch busPIRone 2021-0 Yes 15mg Take 15 mg Un you 15 mg 6-17 by mouth ity of tablet 11:00: as needed. [place] [address] Medical Branch omeprazole 2021-0 Yes 20mg Take 20 mg U nivers 20 mg 6-17 by mouth ity of tablet 11:00: daily. [place] [address] Medical Branch traZODone 2021-0 Yes 100mg Take 100 Uni vers 100 mg 6-17 mg by ity of tablet 11:00: mouth at [place] [address] bedtime. Medical Branch losartan 2021-0 Yes 100mg Take 100 Univ ers 100 mg 6-17 mg by ity of tablet 11:00: mouth [place] 16 daily. Medical Branch gabapentin 2021-0 Yes 300mg Take 300 Un you 300 mg 6-17 mg by ity of capsule 11:00: mouth 2 [place] [address] (two) Medical times Branch daily. QUEtiapine 0 Yes 400mg Take 400 Un you (SEROQUEL) 6-17 mg by ity of 400 mg 11:00: mouth [place] tablet 16 daily. Medical Patient Branch doesn't like to take it ARIPiprazol 2021-0 Yes 10mg Take 10 mg Univers e 10 mg 6-17 by mouth ity of tablet 11:00: daily. [place] [address] Medical Branch busPIRone 2021-0 Yes 15mg Take 15 mg Un you 15 mg 6-17 by mouth ity of tablet 11:00: as needed. [place] [address] Medical Branch omeprazole 2021-0 Yes 20mg Take 20 mg U nivers 20 mg 6-17 by mouth ity of tablet 11:00: daily. [place] [address] Medical Branch traZODone 2021-0 Yes 100mg Take 100 Uni vers 100 mg 6-17 mg by ity of tablet 11:00: mouth at [place] [address] bedtime. Medical Branch losartan 2021-0 Yes 100mg Take 100 Univ ers 100 mg 6-17 mg by ity of tablet 11:00: mouth [place] 16 daily. Medical Branch gabapentin 2021-0 Yes 300mg Take 300 Un you 300 mg 6-17 mg by ity of capsule 11:00: mouth 2 [place] [address] (two) Medical times Branch daily. QUEtiapine 2-0 Yes 400mg Take 400 Un you (SEROQUEL) 6-17 mg by ity of 400 mg 11:00: mouth [place] tablet 16 daily. Medical Patient Branch doesn't like to take it ARIPiprazol 2021-0 Yes 10mg Take 10 mg Univers e 10 mg 6-17 by mouth ity of tablet 11:00: daily. [place] [address] Medical Branch busPIRone 2021-0 Yes 15mg Take 15 mg Un you 15 mg 6-17 by mouth ity of tablet 11:00: as needed. [place] [address] Medical Branch omeprazole 2021-0 Yes 20mg Take 20 mg U nivers 20 mg 6-17 by mouth ity of tablet 11:00: daily. [place] [address] Medical Branch traZODone 2-0 Yes 100mg Take 100 Uni vers 100 mg 6-17 mg by ity of tablet 11:00: mouth at [place] [address] bedtime. Medical Branch losartan 2021-0 Yes 100mg Take 100 Univ ers 100 mg 6-17 mg by ity of tablet 11:00: mouth [place] 16 daily. Medical Branch gabapentin 2021-0 Yes 300mg Take 300 Un you 300 mg 6-17 mg by ity of capsule 11:00: mouth [address] [place] [address] (two) Medical times Branch daily. QUEtiapine 2-0 Yes 400mg Take 400 Un you (SEROQUEL) 6-17 mg by ity of 400 mg 11:00: mouth [place] tablet 16 daily. Medical Patient Branch doesn't like to take it traZODone 2-0 Yes 100mg Take 100 Uni vers 100 mg 6-17 mg by ity of tablet 11:00: mouth at [place] [address] bedtime. Medical Branch losartan 2022-0 Yes 100mg Take 100 Univ ers 100 mg 6-17 mg by ity of tablet 11:00: mouth [place] 16 daily. Medical Branch gabapentin 2022-0 Yes 300mg Take 300 Un you 300 mg 6-17 mg by ity of capsule 11:00: mouth 2 [place] 16 (two) Medical times Branch daily. QUEtiapine 2022-0 Yes 400mg Take 400 Un you (SEROQUEL) 6-17 mg by ity of 400 mg 11:00: mouth [place] tablet 16 daily. Medical Patient Branch doesn't like to take it aspirin 325 2021-2021- Yes [id number] 325mg Take 1 [facility] mg tablet 09-29 4106 tablet by ity of 00:00: 04:59 mouth 2 [place] 00 :00 (two) Medical times Branch daily with meals for 28 days. aspirin 325 2021-0 2- Yes [id number] 325mg Take 1 [facility] mg tablet 09-29 4106 tablet by ity of 00:00: 04:59 mouth 2 [place] 00 :00 (two) Medical times Branch daily with meals for 28 days. aspirin 325 2021-0 2021- Yes [id number] 325mg Take 1 [facility] mg tablet 09-29 4106 tablet by ity of 00:00: 04:59 mouth 2 [place] 00 :00 (two) Medical times [place] daily with meals for 28 days. aspirin 325 2021-2021- Yes [id number] 325mg Take 1 [facility] mg tablet 09-29 4106 tablet by ity of 00:00: 04:59 mouth 2 [place] 00 :00 (two) Medical times [place] daily with meals for 28 days. ARIPiprazol 2021-0 Yes 10mg Take 10 mg Univers e 10 mg 6-09 by mouth ity of tablet 15:58: daily. [address] busPIRone 2021-0 Yes 15mg Take 15 mg Un you 15 mg 6-09 by mouth ity of tablet 15:58: as needed. [address] omeprazole 2021-0 Yes 20mg Take 20 mg U nivers 20 mg 6-09 by mouth ity of tablet 15:58: daily. [address] ARIPiprazol 2021-0 Yes 10mg Take 10 mg Univers e 10 mg 6-09 by mouth ity of tablet 15:58: daily. [address] busPIRone 2021-0 Yes 15mg Take 15 mg Un you 15 mg 6-09 by mouth ity of tablet 15:58: as needed. [address] omeprazole 2021-0 Yes 20mg Take 20 mg U nivers 20 mg 6-09 by mouth ity of tablet 15:58: daily. [address] ARIPiprazol 2021-0 Yes 10mg Take 10 mg [facility] e 10 mg 6-09 by mouth ity of tablet 15:58: daily. [place] [facility] busPIRone 2021-0 Yes 15mg Take 15 mg Un you 15 mg 6-09 by mouth ity of tablet 15:58: as needed. [place] [facility] omeprazole 2021-0 Yes 20mg Take 20 mg U nivers 20 mg 6-09 by mouth ity of tablet 15:58: daily. [place] [address] Medical Branch traZODone 2022-0 Yes 100mg Take 100 Uni vers 100 mg 6-09 mg by ity of tablet 15:51: mouth at [place] 39 bedtime. Medical Branch losartan 2021-0 Yes 100mg Take 100 Univ ers 100 mg 6-09 mg by ity of tablet 15:51: mouth [place] 39 daily. Medical Branch gabapentin 2021-0 Yes 300mg Take 300 Un you 300 mg 6-09 mg by ity of capsule 15:51: mouth 2 [place] 39 (two) Medical times Branch daily. QUEtiapine 2022-0 Yes 400mg Take 400 Un you (SEROQUEL) 6-09 mg by ity of 400 mg 15:51: mouth [place] tablet 39 daily. Medical Patient Branch doesn't like to take it traZODone 2022-0 Yes 100mg Take 100 Uni vers 100 mg 6-09 mg by ity of tablet 15:51: mouth at [place] 39 bedtime. Medical Branch losartan 2-0 Yes 100mg Take 100 Univ ers 100 mg 6-09 mg by ity of tablet 15:51: mouth [place] 39 daily. Medical Branch gabapentin 2-0 Yes 300mg Take 300 Un you 300 mg 6-09 mg by ity of capsule 15:51: mouth 2 [place] 39 (two) Medical times Branch daily. QUEtiapine 2022-0 Yes 400mg Take 400 Un you (SEROQUEL) 6-09 mg by ity of 400 mg 15:51: mouth [place] tablet 39 daily. Medical Patient Branch doesn't like to take it traZODone 2022-0 Yes 100mg Take 100 Uni vers 100 mg 6-09 mg by ity of tablet 15:51: mouth at [place] 39 bedtime. Medical Branch losartan 2022-0 Yes 100mg Take 100 Univ ers 100 mg 6-09 mg by ity of tablet 15:51: mouth [place] 39 daily. Medical Branch gabapentin 2022-0 Yes 300mg Take 300 Un you 300 mg 6-09 mg by ity of capsule 15:51: mouth 2 [place] 39 (two) Medical times Branch daily. QUEtiapine 2021-0 Yes 400mg Take 400 Un you (SEROQUEL) 6-09 mg by ity of 400 mg 15:51: mouth [place] tablet 39 daily. Medical Patient Branch doesn't like to take it traZODone 202-0 Yes 100mg Take 100 Uni vers 100 mg 5-27 mg by ity of tablet 17:57: mouth at [place] 28 bedtime. Medical Branch losartan 2021-0 Yes 100mg Take 100 Univ ers 100 mg 5-27 mg by ity of tablet 17:57: mouth [place] 28 daily. Medical Branch gabapentin 2021-0 Yes 300mg Take 300 Un you 300 mg 5-27 mg by ity of capsule 17:57: mouth 2 [place] 28 (two) Medical times Branch daily. QUEtiapine 2021-0 Yes 400mg Take 400 Un you (SEROQUEL) 5-27 mg by ity of 400 mg 17:57: mouth [place] tablet 28 daily. Medical Patient Branch doesn't like to take it traZODone 2021-0 Yes 100mg Take 100 Uni vers 100 mg 5-27 mg by ity of tablet 17:57: mouth at [place] 28 bedtime. Medical Branch losartan 2021-0 Yes 100mg Take 100 Univ ers 100 mg 5-27 mg by ity of tablet 17:57: mouth [place] 28 daily. Medical Branch gabapentin 2021-0 Yes 300mg Take 300 Un you 300 mg 5-27 mg by ity of capsule 17:57: mouth 2 [place] 28 (two) Medical times Branch daily. QUEtiapine 2021-0 Yes 400mg Take 400 Un you (SEROQUEL) 5-27 mg by ity of 400 mg 17:57: mouth [place] tablet 28 daily. Medical Patient Branch doesn't like to take it proMETHazin 2021-0 2021- No 25mg Take 25 mg [facility] e 25 mg 5-27 05-27 by mouth ity of tablet 12:37: 00:00 every 12 [place] 44 :00 (twelve) Medical hours as Branch needed. sucralfate 2021-0 Yes 1g 1 g, Oral, U nivers (CARAFATE) 5-27 AC+HS, ity of tablet 1 g 02:00: First dose [place] 00 on [place] [facility] 09/07/21 at Branch 2100, Until Discontinu ed, Routine lactated 0 2021- No 500mL at 999 Unive rs ringers IV 5-27 05-27 mL/hr, 500 it y of infusion 01:30: 01:17 mL, [place] 500 mL 00 :00 Intravenou Medical s, ONCE, 1 Branch dose, On [place] 09/07/21 at 2030, Routine lipase-prot 0 Yes [id number] 1{capsu Take 1 [facility] ease-amylas 5-27 le} capsule by it y of e 00:00: mouth 3 [place] 12,000-38,0 00 (three) Medic al 00 -60,000 times Branch unit daily with capsule meals. psyllium 0 Yes [id number] 1{packe Take 1 [facility] husk 3.4 5-27 t} Packet by ity of gram oral 00:00: mouth 2 [place] powder 00 (two) Medical packet times Branch daily. sucralfate 0 Yes [id number] 1g Take 1 U nivers 1 gram 5-27 tablet by ity of tablet 00:00: mouth [place] 00 before Medical meals and Branch at bedtime. ursodioL 0 Yes [id number] 500mg Take 1 Un you 500 mg 5-27 tablet by ity of tablet 00:00: mouth 2 [place] 00 (two) Medical times Branch daily. dicyclomine 0 Yes [id number] 10mg Take 1 [facility] 10 mg 5-27 capsule by ity of capsule 00:00: mouth 3 [place] 00 (three) Medical times Branch daily. proMETHazin 0 Yes [id number] 12.5mg Take 0.5 [facility] e 25 mg 5-27 tablets by ity of tablet 00:00: mouth [place] 00 every 6 Medical (six) Branch hours as needed for Nausea and Vomiting (N/V). HYDROcodone 0 Yes [id number] 1{tbl} Take 1 Un you -acetaminop 5-27 tablet by ity of hen 7.5-325 00:00: mouth 2 [place] mg per 00 (two) Medical tablet times Branch daily as needed (Pain scal 7-10). Indication s: chronic pain pantoprazol 2022-0 Yes [id number] 40mg Take 1 [facility] e 40 mg EC 5-27 tablet by ity of tablet 00:00: mouth [place] 00 daily. Medical Branch lipase-prot Yes [id number] 1{capsu Take 1 [facility] ease-amylas 5-27 le} capsule by it y of e 00:00: mouth 3 [place] 12,000-38,0 00 (three) Medic al 00 -60,000 times Branch unit daily with capsule meals. psyllium Yes [id number] 1{packe Take 1 [facility] husk 3.4 5-27 t} Packet by ity of gram oral 00:00: mouth 2 [place] powder 00 (two) Medical packet times Branch daily. sucralfate Yes [id number] 1g Take 1 U nivers 1 gram 5-27 tablet by ity of tablet 00:00: mouth [place] 00 before Medical meals and Branch at bedtime. ursodioL Yes [id number] 500mg Take 1 Un you 500 mg 5-27 tablet by ity of tablet 00:00: mouth 2 [place] 00 (two) Medical times Branch daily. dicyclomine Yes [id number] 10mg Take 1 [facility] 10 mg 5-27 capsule by ity of capsule 00:00: mouth 3 [place] 00 (three) Medical times Branch daily. proMETHazin Yes [id number] 12.5mg Take 0.5 [facility] e 25 mg 5-27 tablets by ity of tablet 00:00: mouth [place] 00 every 6 Medical (six) Branch hours as needed for Nausea and Vomiting (N/V). HYDROcodone Yes [id number] 1{tbl} Take 1 Un you -acetaminop 5-27 tablet by ity of hen 7.5-325 00:00: mouth 2 [place] mg per 00 (two) Medical tablet times Branch daily as needed (Pain scal 7-10). Indication s: chronic pain pantoprazol Yes [id number] 40mg Take 1 [facility] e 40 mg EC 5-27 tablet by ity of tablet 00:00: mouth [place] 00 daily. Medical Branch lipase-prot Yes [id number] 1{capsu Take 1 [facility] ease-amylas 5-27 le} capsule by it y of e 00:00: mouth 3 [place] 12,000-38,0 00 (three) Medic al 00 -60,000 times Branch unit daily with capsule meals. psyllium 2021-0 Yes [id number] 1{packe Take 1 [facility] husk 3.4 5-27 t} Packet by ity of gram oral 00:00: mouth 2 [place] powder 00 (two) Medical packet times Branch daily. ursodioL 2021-0 Yes [id number] 500mg Take 1 Un you 500 mg 5-27 tablet by ity of tablet 00:00: mouth 2 [place] 00 (two) Medical times Branch daily. dicyclomine 2021-0 Yes [id number] 10mg Take 1 [facility] 10 mg 5-27 capsule by ity of capsule 00:00: mouth 3 00 (three) Medical times Branch daily. proMETHazin 2021-0 Yes [id number] 12.5mg Take 0.5 [facility] e 25 mg 5-27 tablets by ity of tablet 00:00: mouth [place] 00 every 6 Medical (six) Branch hours as needed for Nausea and Vomiting (N/V). HYDROcodone 0 Yes [id number] 1{tbl} Take 1 Un you -acetaminop 5-27 tablet by ity of hen 7.5-325 00:00: mouth 2 [place] mg per 00 (two) Medical tablet times Branch daily as needed (Pain scal 7-10). Indication s: chronic pain lipase-prot 2021-0 Yes [id number] 1{capsu Take 1 [facility] ease-amylas 5-27 le} capsule by it y of e 00:00: mouth 3 [place] 12,000-38,0 00 (three) Medic al 00 -60,000 times Branch unit daily with capsule meals. psyllium 2021-0 Yes [id number] 1{packe Take 1 [facility] husk 3.4 5-27 t} Packet by ity of gram oral 00:00: mouth 2 [place] powder 00 (two) Medical packet times Branch daily. ursodioL 2021-0 Yes [id number] 500mg Take 1 Un you 500 mg 5-27 tablet by ity of tablet 00:00: mouth 2 [place] 00 (two) Medical times Branch daily. dicyclomine 2021-0 Yes [id number] 10mg Take 1 [facility] 10 mg 5-27 capsule by ity of capsule 00:00: mouth 3 00 (three) Medical times Branch daily. proMETHazin 2022-0 Yes [id number] 12.5mg Take 0.5 [facility] e 25 mg 5-27 tablets by ity of tablet 00:00: mouth [place] 00 every 6 Medical (six) Branch hours as needed for Nausea and Vomiting (N/V). HYDROcodone 0 Yes [id number] 1{tbl} Take 1 Un you -acetaminop 5-27 tablet by ity of hen 7.5-325 00:00: mouth 2 [place] mg per 00 (two) Medical tablet times Branch daily as needed (Pain scal 7-10). Indication s: chronic pain lipase-prot 2021- Yes [id number] 1{capsu Take 1 [facility] ease-amylas 5-27 le} capsule by it y of e 00:00: mouth 3 [place] 12,000-38,0 00 (three) Medic al 00 -60,000 times Branch unit daily with capsule meals. psyllium Yes [id number] 1{packe Take 1 [facility] husk 3.4 5-27 t} Packet by ity of gram oral 00:00: mouth 2 [place] powder 00 (two) Medical packet times Branch daily. ursodioL 0 Yes [id number] 500mg Take 1 Un you 500 mg 5-27 tablet by ity of tablet 00:00: mouth 2 [place] 00 (two) Medical times Branch daily. dicyclomine 0 Yes [id number] 10mg Take 1 [facility] 10 mg 5-27 capsule by ity of capsule 00:00: mouth 3 [place] 00 (three) Medical times Branch daily. proMETHazin Yes [id number] 12.5mg Take 0.5 [facility] e 25 mg 5-27 tablets by ity of tablet 00:00: mouth [place] 00 every 6 Medical (six) Branch hours as needed for Nausea and Vomiting (N/V). HYDROcodone 2021-0 Yes [id number] 1{tbl} Take 1 Un you -acetaminop 5-27 tablet by ity of hen 7.5-325 00:00: mouth 2 [place] mg per 00 (two) Medical tablet times Branch daily as needed (Pain scal 7-10). Indication s: chronic pain lipase-prot 2021-0 Yes [id number] 1{capsu Take 1 [facility] ease-amylas 5-27 le} capsule by it y of e 00:00: mouth 3 [place] 12,000-38,0 00 (three) Medic al 00 -60,000 times Branch unit daily with capsule meals. psyllium 2021-0 Yes [id number] 1{packe Take 1 [facility] husk 3.4 5-27 t} Packet by ity of gram oral 00:00: mouth 2 [place] powder 00 (two) Medical packet times Branch daily. ursodioL 2021-0 Yes [id number] 500mg Take 1 Un you 500 mg 5-27 tablet by ity of tablet 00:00: mouth 2 [place] 00 (two) Medical times Branch daily. dicyclomine 2021-0 Yes [id number] 10mg Take 1 [facility] 10 mg 5-27 capsule by ity of capsule 00:00: mouth 3 [place] 00 (three) Medical times Branch daily. proMETHazin 2021-0 Yes [id number] 12.5mg Take 0.5 [facility] e 25 mg 5-27 tablets by ity of tablet 00:00: mouth [place] 00 every 6 Medical (six) Branch hours as needed for Nausea and Vomiting (N/V). HYDROcodone 0 Yes [id number] 1{tbl} Take 1 Un you -acetaminop 5-27 tablet by ity of hen 7.5-325 00:00: mouth 2 [place] mg per 00 (two) Medical tablet times Branch daily as needed (Pain scal 7-10). Indication s: chronic pain lipase-prot 2021-0 Yes [id number] 1{capsu Take 1 [facility] ease-amylas 5-27 le} capsule by it y of e 00:00: mouth 3 [place] 12,000-38,0 00 (three) Medic al 00 -60,000 times Branch unit daily with capsule meals. psyllium 2021-0 Yes [id number] 1{packe Take 1 [facility] husk 3.4 5-27 t} Packet by ity of gram oral 00:00: mouth 2 [place] powder 00 (two) Medical packet times Branch daily. ursodioL 2021-0 Yes [id number] 500mg Take 1 Un you 500 mg 5-27 tablet by ity of tablet 00:00: mouth 2 [place] 00 (two) Medical times Branch daily. dicyclomine 2021-0 Yes [id number] 10mg Take 1 [facility] 10 mg 5-27 capsule by ity of capsule 00:00: mouth 3 [place] 00 (three) Medical times Branch daily. proMETHazin Yes [id number] 12.5mg Take 0.5 [facility] e 25 mg 5-27 tablets by ity of tablet 00:00: mouth [place] 00 every 6 Medical (six) Branch hours as needed for Nausea and Vomiting (N/V). HYDROcodone 2021-0 Yes [id number] 1{tbl} Take 1 Un you -acetaminop 5-27 tablet by ity of hen 7.5-325 00:00: mouth 2 [place] mg per 00 (two) Medical tablet times Branch daily as needed (Pain scal 7-10). Indication s: chronic pain lipase-prot 2021-0 Yes [id number] 1{capsu Take 1 [facility] ease-amylas 5-27 le} capsule by it y of e 00:00: mouth 3 [place] 12,000-38,0 00 (three) Medic al 00 -60,000 times Branch unit daily with capsule meals. psyllium Yes [id number] 1{packe Take 1 [facility] husk 3.4 5-27 t} Packet by ity of gram oral 00:00: mouth 2 [place] powder 00 (two) Medical packet times Branch daily. ursodioL Yes [id number] 500mg Take 1 Un you 500 mg 5-27 tablet by ity of tablet 00:00: mouth 2 [place] 00 (two) Medical times Branch daily. dicyclomine 0 Yes [id number] 10mg Take 1 [facility] 10 mg 5-27 capsule by ity of capsule 00:00: mouth 3 [place] 00 (three) Medical times Branch daily. proMETHazin 2021-0 Yes [id number] 12.5mg Take 0.5 [facility] e 25 mg 5-27 tablets by ity of tablet 00:00: mouth [place] 00 every 6 Medical (six) Branch hours as needed for Nausea and Vomiting (N/V). HYDROcodone 2021-0 Yes [id number] 1{tbl} Take 1 Un you -acetaminop 5-27 tablet by ity of hen 7.5-325 00:00: mouth 2 [place] mg per 00 (two) Medical tablet times Branch daily as needed (Pain scal 7-10). Indication s: chronic pain lipase-prot 2021-0 Yes [id number] 1{capsu Take 1 [facility] ease-amylas 5-27 le} capsule by it y of e 00:00: mouth 3 [place] 12,000-38,0 00 (three) Medic al 00 -60,000 times Branch unit daily with capsule meals. psyllium Yes [id number] 1{packe Take 1 [facility] husk 3.4 5-27 t} Packet by ity of gram oral 00:00: mouth 2 [place] powder 00 (two) Medical packet times Branch daily. ursodioL 0 Yes [id number] 500mg Take 1 Un you 500 mg 5-27 tablet by ity of tablet 00:00: mouth 2 [place] 00 (two) Medical times Branch daily. dicyclomine 0 Yes [id number] 10mg Take 1 [facility] 10 mg 5-27 capsule by ity of capsule 00:00: mouth 3 [place] 00 (three) Medical times Branch daily. proMETHazin Yes [id number] 12.5mg Take 0.5 [facility] e 25 mg 5-27 tablets by ity of tablet 00:00: mouth [place] 00 every 6 Medical (six) Branch hours as needed for Nausea and Vomiting (N/V). HYDROcodone 0 Yes [id number] 1{tbl} Take 1 Un you -acetaminop 5-27 tablet by ity of hen 7.5-325 00:00: mouth 2 [place] mg per 00 (two) Medical tablet times Branch daily as needed (Pain scal 7-10). Indication s: chronic pain lipase-prot 2021-0 Yes [id number] 1{capsu Take 1 [facility] ease-amylas 5-27 le} capsule by it y of e 00:00: mouth 3 [place] 12,000-38,0 00 (three) Medic al 00 -60,000 times Branch unit daily with capsule meals. psyllium 2021-0 Yes [id number] 1{packe Take 1 [facility] husk 3.4 5-27 t} Packet by ity of gram oral 00:00: mouth 2 [place] powder 00 (two) Medical packet times Branch daily. ursodioL 2021-0 Yes [id number] 500mg Take 1 Un you 500 mg 5-27 tablet by ity of tablet 00:00: mouth 2 [place] 00 (two) Medical times Branch daily. dicyclomine 2021-0 Yes [id number] 10mg Take 1 [facility] 10 mg 5-27 capsule by ity of capsule 00:00: mouth 3 [place] 00 (three) Medical times Branch daily. proMETHazin Yes [id number] 12.5mg Take 0.5 [facility] e 25 mg 5-27 tablets by ity of tablet 00:00: mouth [place] 00 every 6 Medical (six) Branch hours as needed for Nausea and Vomiting (N/V). HYDROcodone Yes [id number] 1{tbl} Take 1 Un you -acetaminop 5-27 tablet by ity of hen 7.5-325 00:00: mouth 2 [place] mg per 00 (two) Medical tablet times Branch daily as needed (Pain scal 7-10). Indication s: chronic pain sucralfate 2021- No [id number] 1g Take 1 [facility] 1 gram 5-27 -09 tablet by ity of tablet 00:00: 00:00 mouth [place] 00 :00 before Medical meals and Branch at bedtime. pantoprazol 2021- No [id number] 40mg Take 1 [facility] e 40 mg EC 5-27 06-09 tablet by ity of tablet 00:00: 00:00 mouth [place] 00 :00 daily. Medical Branch sucralfate 2021- No [id number] 1g Take 1 [facility] 1 gram 5-27 - tablet by ity of tablet 00:00: 00:00 mouth [place] 00 :00 before Medical meals and Branch at bedtime. pantoprazol 2021- No [id number] 40mg Take 1 [facility] e 40 mg EC 5-27 06-09 tablet by ity of tablet 00:00: 00:00 mouth [place] 00 :00 daily. Medical Branch ursodioL 2021- No [id number] 500mg Take 1 U nivers 500 mg 5-27 05-27 tablet by ity of tablet 00:00: 00:00 mouth 2 [place] 00 :00 (two) Medical times Branch daily. psyllium 2021- No [id number] 1{packe Take 1 [facility] husk 3.4 5-27 05-27 t} Packet by ity o f gram oral 00:00: 00:00 mouth 2 [place] powder 00 :00 (two) Medical packet times Branch daily. lipase-prot 2021- No [id number] 1{capsu Take 1 [facility] ease-amylas 5-27 05-27 le} capsule by i ty of e 00:00: 00:00 mouth 3 [place] 12,000-38,0 00 :00 (three) Medic al 00 -60,000 times Branch unit daily with capsule meals. dicyclomine 2021- No [id number] 10mg Take 1 [facility] 10 mg 5-27 05-27 capsule by ity of capsule 00:00: 00:00 mouth 3 [place] 00 :00 (three) Medical times Branch daily. proMETHazin 2021- No [id number] 12.5mg Take 0.5 [facility] e 25 mg 5-27 05-27 tablets by ity o f tablet 00:00: 00:00 mouth [place] 00 :00 every 6 Medical (six) Branch hours as needed for Nausea and Vomiting (N/V) for up to 10 days. HYDROcodone 2021- No 2745 1{tbl} Take 1 U nivers -acetaminop 5-27 05-27 tablet by it y of hen 7.5-325 00:00: 00:00 mouth 2 [place] mg per 00 :00 (two) Medical tablet times Branch daily as needed (Pain scal 7-10). Indication s: chronic pain sucralfate 2021- No [id number] 1g Take 1 [facility] 1 gram 5-27 05-27 tablet by ity of tablet 00:00: 00:00 mouth [place] 00 :00 before Medical meals and Branch at bedtime. pantoprazol 2021- No [id number] 40mg Take 1 [facility] e 40 mg EC 5-27 05-27 tablet by ity of tablet 00:00: 00:00 mouth [place] 00 :00 daily. Medical Branch lidocaine Yes 15mL 15 mL, Univer s 2% viscous 09-07 Oral, ity of (LIDOCAINE 23:21: Q4HPRN, [place] VISCOUS) 2 53 Starting Medic al % solution on [place] Branch 15 mL 09/07/21 at 1821, Until Discontinu ed, Routine, Oral mucosal pain magnesium 2021- No 2g 2 g, IV Univ ers sulfate in 09-07 Piggyback, it y of water 2 10:45: 11:12 Administer [place] gram/50 mL 00 :00 over 60 Medica l (4 %) Minutes, Branch infusion 2 ONCE, 1 g dose, On Sat09/07/21 at 0545, Routine HYDROcodone Yes 7.5mg 7.5 mg, Un you -acetaminop 25 Oral, Q6H, it y of hen (HYCET) 23:30: First dose [place] 7.5-325 00 (after Medical mg/15 mL last Branch solution modificati 7.5 mg on) on Sat09/06/21 at 1830, Until Discontinu ed proMETHazin Yes 12.5mg 12.5 mg, Univers e 25 Oral, ity of (PHENERGAN) 18:38: Q6HPRN, [place] tablet 12.5 27 Starting Medi brandy mg on Sat09/06/21 at 1338, Until Discontinu ed, Routine, Nausea and Vomiting (N/V) gadobenate 2021- No [id number] .2mL/kg 15.7 mL Univers dimeglumine 09-06 (0.2 mL/kg i ty of (MULTIHANCE 16:00: 15:40 ?78.5 kg), [place] -20 mL) 00 :00 Intravenou Medica l injection s, ONCE, 1 Bran ch 15.7 mL dose, On Sat09/06/21 at 1100, Routine lidocaine 2021- No 1{patch 1 Patch, Univers (LIDODERM) 09-05 } Topical, ity of 5 % (700 20:15: 07:25 Administer [place] mg/patch) 00 :00 over 12 Medical patch 1 Hours, Branch Patch ONCE, 1 dose, On Sat09/05/21 at 1515, Routine LORazepam 2021- No 1mg 1 mg, Univer s (ATIVAN) 09-05 Oral, PRN, ity of tablet 1 mg 19:07: 14:26 1 dose, [place] 50 :00 Starting Medical on Sat09/05/21 at 1407, Until Discontinu ed, Routine, Anxiety HYDROcodone 2021- No 7.5mg 7.5 mg, U nivers -acetaminop 09-05 Oral, TID, i ty of hen (HYCET) 13:00: 23:21 First dose [place] 7.5-325 00 :53 (after Medical mg/15 mL last Branch solution modificati 7.5 mg on) on Sat09/05/21 at 0800, Until Discontinu ed HYDROcodone 2021- No 10mg 10 mg, Uni vers -acetaminop 09-05 Oral, ity of hen (HYCET) 01:00: 01:11 ONCE, 1 [place] 7.5-325 00 :00 dose, On Medical mg/15 mL Mon Branch solution 10 09/04/21 at mg 1999, Routine alum-mag Yes 30mL 30 mL, Univers hydroxide-s 09-04 Oral, ity of imeth 22:31: Q6HPRN, [place] (MAALOX 21 Starting Medical PLUS / on Mon Branch MAG-AL 09/04/21 at PLUS) 1731, 200-200-20 Until mg/5 mL Discontinu suspension ed, 30 mL Routine, Indigestio n, Heartburn psyllium Yes 1{packe 1 Packet, U nivers husk 09-04 t} Oral, BID, ity of (METAMUCIL 01:00: First dose [place] (SUGAR 00 on [facility] FREE)) 3.4 09/03/21 at [facility] gram oral 1999, powder Until packet 1 Discontinu Packet ed, Routine HYDROcodone 2021- No 10mg 10 mg, Uni vers -acetaminop 09-04 Oral, BID, i ty of hen (HYCET) 01:00: 22:54 First dose [place] 7.5-325 00 :32 (after Medical mg/15 mL last Branch solution 10 modificati mg on) on 09/03/21 at 2000, Until Discontinu ed traMADoL 2021- No 25mg 25 mg, Univer s (ULTRAM) 09-03 Oral, PRN, ity of tablet 25 19:34: 19:54 1 dose, [place] mg 00 :00 Starting Medical on [place] [facility] 09/03/21 at 1434, Until Discontinu ed, Routine, Pain (scale 7-10) pantoprazol Yes 40mg 40 mg, Univ ers e 09-03 Slow IV ity of (PROTONIX) 17:30: Push, [place] injection 00 Q24H, Medical 40 mg First dose Branch on [place] 09/03/21 at 1230, Until Discontinu ed dicyclomine Yes 10mg 10 mg, Univ ers (BENTYL) 09-03 Oral, ity of capsule 10 16:19: TIDPRN, [place] mg 52 Starting Medical on [facility] 09/03/21 at 1119, Until Discontinu ed, Routine, Abdominal pain acetaminoph Yes 325mg 325 mg, Un you en 09-03 Oral, ity of (TYLENOL) 14:40: Q6HPRN, [place] tablet 325 10 Starting Medic al mg on [facility] 09/03/21 at 0940, Until Discontinu ed, Routine, Pain (scale 1-3), Pain (scale 4-6) FENTanyl PF No 50ug 50 mcg, Un you (SUBLIMAZE 09-0322 Slow IV ity o f (PF)) 14:39: 16:17 Push, [place] injection 39 :20 Q6HPRN, Medical 50 mcg Starting Branch on [place] 09/03/21 at 0939, Until [place] 09/03/21 at 1117, Routine, Pain (scale 7-10) polyethylen Yes 17g 17 g, Unive rs e glycol 09-02 Oral, ity of 3350 powder 14:00: DAILY, [place] 17 g 00 First dose Medical on [facility] 09/02/21 at 0900, Until Discontinu ed, Routine fenofibrate Yes 134mg 134 mg, Un you micronized 09-02 Oral, ity of (LOFIBRA) 14:00: DAILY, [place] capsule 134 00 First dose Me dical mg on [facility] 09/02/21 at 0900, Until Discontinu ed losartan Yes 100mg 100 mg, Unive rs (COZAAR) 09-02 Oral, ity of tablet 100 14:00: DAILY, [place] mg 00 First dose Medical on [facility] 09/02/21 at 0900, Until Discontinu ed, Routine heparin 0 Yes 5000U 5,000 Univers (porcine) 09-02 Units, ity of injection 13:00: Subcutaneo [place] 5,000 Units 00 us, Q12H, Med ical First dose Branch on [facility] 09/02/21 at 0800, Until Discontinu ed, Routine sennosides Yes 8.6mg 8.6 mg, Uni vers (SENOKOT) 09-02 Oral, BID, ity of tablet 8.6 13:00: First dose [place] mg 00 on [facility] 09/02/21 at Branch 0800, Until Discontinu ed, Routine lipase-prot 0 Yes 1{capsu 1 capsule, Univers ease-amylas 09-02 le} Oral, TID ity of e (CREON) 13:00: MEALS, [place] 12,000-38,0 00 First dose Me dical 00 -60,000 on [facility] Branch unit 09/02/21 at capsule 1 0800, capsule Until Discontinu ed, Routine ursodioL Yes 500mg 500 mg, Unive rs (EUGENE) 09-02 Oral, BID, ity of tablet 500 13:00: First dose [place] mg 00 on [facility] 09/02/21 at Branch 0800, Until Discontinu ed, Routine gabapentin Yes 300mg 300 mg, Uni vers (NEURONTIN) 09-02 Oral, BID, it y of capsule 300 13:00: First dose [place] mg 00 on [facility] 09/02/21 at Branch 0800, Until Discontinu ed, Routine HYDROcodone 2021- No 7.5mg 7.5 mg, U nivers -acetaminop 09-02 Oral, BID, i ty of hen (HYCET) 13:00: 16:17 First dose [place] 7.5-325 00 :46 on [facility] Medical mg/15 mL 09/02/21 at [facility] h solution 0800, 7.5 mg Until Discontinu ed FENTanyl PF 2021- No 25ug 25 mcg, Un you (SUBLIMAZE 09-02 Slow IV ity o f (PF)) 12:56: 12:17 Push, [place] injection 31 :41 Q6HPRN, Medical 25 mcg Starting Branch on [facility] 09/02/21 at 0756, Until 09/03/21 at 0717, Routine, Pain (scale 7-10) traMADoL 2021- No 50mg 50 mg, Univer s (ULTRAM) 09-02 Oral, ity of tablet 50 12:55: 12:17 Q8HPRN, [place] mg 47 :33 Starting Medical on [facility] 09/02/21 at 0755, Until 09/03/21 at 0717, Routine, Pain (scale 4-6) traZODone Yes 100mg 100 mg, Univ ers (DESYREL) 09-02 Oral, QHS, ity of tablet 100 03:30: First dose [place] mg 00 on Sat [facility] 09/01/21 at Branch 2230, Until Discontinu ed, Routine QUEtiapine Yes 400mg 400 mg, Uni vers (SEROQUEL) 09-02 Oral, QHS, ity of tablet 400 03:30: First dose [place] mg 00 on Sat [facility] 09/01/21 at Branch 2230, Until Discontinu ed, Routine NaCl 0.9% 2021- No 1000mL at 500 Uni vers (NS) bolus 09-02 mL/hr, ity of infusion 03:30: 05:52 1,000 mL, [place] 1,000 mL 00 :00 IV Medical Infusion, [place] ONCE, 1 dose, On Sat09/01/21 at 2230, [place] bisacodyL Yes 10mg 10 mg, Univer s (DULCOLAX) 09-02 Rectal, ity of suppository 03:21: BIDPRN, [place] 10 mg 19 Starting Medical on Sat [place] 09/01/21 at 2221, Until Discontinu ed, Routine, Constipati on, Constipati on unresolved by oral medication s tiZANidine Yes 4mg 4 mg, Univer s (ZANAFLEX) 09-02 Oral, ity of tablet 4 mg 03:20: Q6HPRN, [place] 43 Starting Medical on Sat [place] 09/01/21 at 2220, Until Discontinu ed, Routine, Muscle Spasms morpHINE (2 2021- No 4mg 4 mg, Slow Univers mg/mL) 09-02 IV Push, ity of injection 4 03:19: 12:56 Q6HPRN, [place] mg 17 :55 Starting Medical on Sat Branch 09/01/21 at 2219, Until 09/02/21 at 0756, Routine, Pain (scale 7-10) traMADoL 2021- No 50mg 50 mg, Univer s (ULTRAM) 09-02 Oral, ity of tablet 50 03:19: 12:56 Q8HPRN, [place] mg 06 :55 Starting Medical on Sat Branch 09/01/21 at 2219, Until 09/02/21 at 0756, Routine, Pain (scale 4-6) proMETHazin 2021- No 25mg 25 mg, IV Univers e 09-02 Piggyback, ity of (PHENERGAN) 02:39: 18:38 at 200 [place] 25 mg in NS 14 :43 mL/hr Medical 50 mL IV Administer Branc h piggyback over 15 (CNR) Minutes, Q6HPRN, Starting on Sat09/01/21 at 2139, Until 09/06/21 at 1338, Routine, N/V unresponsi ve to Ondansetro n, N/V alternatin g with Ondansetro n ondansetron 2021- No 4mg 4 mg, Slow Univers (ZOFRAN 09-02 IV Push, ity of (PF)) 02:38: 18:38 Q6HPRN, [place] injection 4 27 :43 Nausea and Me dical mg Vomiting Branch (N/V), Starting on Sat09/01/21 at 2138
Do ses of ondansetro n 16 mg and above need to be administer ed via IV piggyback. For Dose >=24mg ECG monitoring is advisable.
NaCl 0.9% 2021- No 500mL at 999 Univ ers (NS) bolus 5-20 05-20 mL/hr, 500 it y of infusion 23:45: 23:32 mL, IV [place] 500 mL 00 :00 Infusion, Medical ONCE, 1 Branch dose, On Sat09/01/21 at 1845, STAT FENTanyl PF 2021- No 25ug 25 mcg, Un you (SUBLIMAZE 5-20 05-20 Slow IV ity o f (PF)) 23:45: 22:47 Push, [place] injection 00 :00 ONCE, 1 Medical 25 mcg dose, On Branch 09/01/21 at 1845, STAT ondansetron 2021- No 4mg 4 mg, Slow Univers (ZOFRAN 5-20 05-20 IV Push, ity of (PF)) 23:30: 22:32 ONCE, 1 [place] injection 4 00 :00 dose, On Medi brandy mg Fri Branch 09/01/21 at 1830, [place] busPIRone 2021- No 15mg Take 15 mg U nivers 15 mg 5-20 05-20 by mouth 3 ity of tablet 22:21: 00:00 (three) [place] 48 :00 times Medical daily. For Branch anxiety divalproex 2021- No 500mg Take 500 U nivers ER 5-20 05-20 mg by ity of (DEPAKOTE 22:21: 00:00 mouth 2 [place] ER) 500 mg 48 :00 (two) Medical 24 hr times Branch tablet daily. For anxiety ondansetron 2021- No 4mg 4 mg, Slow Univers (ZOFRAN 5-20 05-20 IV Push, ity of (PF)) 21:00: 20:10 ONCE, 1 [place] injection 4 00 :00 dose, On Medi brandy mg Fri Branch 09/01/21 at 1600, [place] morpHINE (2 2021- No 4mg 4 mg, Slow Univers mg/mL) 09-01 05-20 IV Push, ity of injection 4 21:00: 20:10 ONCE, 1 [place] mg 00 :00 dose, On Medical Fri Branch 09/01/21 at 1600, STAT dicyclomine 2021- No 20mg 20 mg, Uni vers (BENTYL) 5-15 05-15 Oral, ity of tablet 20 20:45: 19:43 ONCE, 1 [place] mg 00 :00 dose, On Medical [place] Branch 08/27/21 at 1545, Routine maalox:diph 2021- No 15mL 15 mL, Uni vers enhydrAMINE 5-15 05-15 Oral, ity of :lidocaine 20:00: 18:58 ONCE, 1 [place] 2 % viscous 00 :00 dose, On Medi brandy 1:1:1 Sun Branch ([facility] 08/27/21 at [facility]) 1500, oral Routine suspension 15 mL FENTanyl PF 2021- No 50ug 50 mcg, Un you (SUBLIMAZE 08-27-15 Slow IV ity o f (PF)) 17:49: 17:52 Push, [place] injection 00 :00 ONCE, 1 Medical 50 mcg dose, On Branch [place] 08/27/21 at 1300, STAT morpHINE (4 2021- No 4mg 4 mg, Slow Univers mg/mL) 08-27-15 IV Push, ity of injection 4 17:15: 16:22 ONCE, 1 [place] mg 00 :00 dose, On Medical [place] Branch 08/27/21 at 1215, STAT ondansetron 2021- No 4mg 4 mg, Slow Univers (ZOFRAN 08-27-15 IV Push, ity of (PF)) 17:15: 16:22 ONCE, 1 [place] injection 4 00 :00 dose, On Medi brandy mg [facility] 08/27/21 at 1215, [place] NaCl 0.9% 2021- No 1000mL at 999 Uni vers (NS) bolus 08-27-15 mL/hr, ity of infusion 17:15: 18:59 1,000 mL, [place] as 1,000 mL 00 :00 IV Medical Infusion, Branch ONCE, 1 dose, On [place] 08/27/21 at 1215, [place] iopamidol 2021- No [id number] 100mL 100 mL, Univers (ISOVUE 08-27-15 Intravenou ity o f 370-500 mL) 16:45: 16:44 s, ONCE, 1 [place] injection 00 :00 dose, On Medica l 100 mL [facility] 08/27/21 at 1145, Routine traZODone Yes 100mg Take 100 Uni vers 100 mg 4-16 mg by ity of tablet 14:03: mouth at [place] 58 bedtime. Medical Branch losartan Yes 100mg Take 100 Univ ers 100 mg 4-16 mg by ity of tablet 14:03: mouth [place] 58 daily. Medical Branch gabapentin 2022-0 Yes 300mg Take 300 Un you 300 mg 4-16 mg by ity of capsule 14:03: mouth 2 [place] 58 (two) Medical times Branch daily. proMETHazin 2022-0 Yes 25mg Take 25 mg Univers e 25 mg 4-16 by mouth ity of tablet 14:03: every 12 [place] 58 (twelve) Medical hours as Branch needed. busPIRone 2022-0 Yes 15mg Take 15 mg Un you 15 mg 4-16 by mouth 3 ity of tablet 14:03: (three) [place] 58 times Medical daily. For Branch anxiety QUEtiapine 2022-0 Yes 400mg Take 400 Un you (SEROQUEL) 4-16 mg by ity of 400 mg 14:03: mouth [place] tablet 58 daily. Medical Patient Branch doesn't like to take it divalproex 2022-0 Yes 500mg Take 500 Un you ER 4-16 mg by ity of (DEPAKOTE 14:03: mouth 2 [place] ER) 500 mg 58 (two) Medical 24 hr times Branch tablet daily. For anxiety traZODone 2022-0 Yes 100mg Take 100 Uni vers 100 mg 4-16 mg by ity of tablet 14:03: mouth at [place] 58 bedtime. Medical Branch losartan 2022-0 Yes 100mg Take 100 Univ ers 100 mg 4-16 mg by ity of tablet 14:03: mouth [place] 58 daily. Medical Branch gabapentin 2022-0 Yes 300mg Take 300 Un you 300 mg 4-16 mg by ity of capsule 14:03: mouth 2 [place] 58 (two) Medical times Branch daily. proMETHazin 2022-0 Yes 25mg Take 25 mg Univers e 25 mg 4-16 by mouth ity of tablet 14:03: every 12 [place] 58 (twelve) Medical hours as Branch needed. busPIRone 2022-0 Yes 15mg Take 15 mg Un you 15 mg 4-16 by mouth 3 ity of tablet 14:03: (three) [place] 58 times Medical daily. For Branch anxiety QUEtiapine 2022-0 Yes 400mg Take 400 Un you (SEROQUEL) 4-16 mg by ity of 400 mg 14:03: mouth [place] tablet 58 daily. Medical Patient Branch doesn't like to take it divalproex 2022-0 Yes 500mg Take 500 Un you ER 4-16 mg by ity of (DEPAKOTE 14:03: mouth 2 [place] ER) 500 mg 58 (two) Medical 24 hr times Branch tablet daily. For anxiety traZODone 2021-0 Yes 100mg Take 100 Uni vers 100 mg 4-16 mg by ity of tablet 14:03: mouth at [place] 58 bedtime. Medical Branch losartan 202-0 Yes 100mg Take 100 Univ ers 100 mg 4-16 mg by ity of tablet 14:03: mouth [place] 58 daily. Medical Branch gabapentin 2021-0 Yes 300mg Take 300 Un you 300 mg 4-16 mg by ity of capsule 14:03: mouth 2 [place] 58 (two) Medical times Branch daily. proMETHazin 2021-0 Yes 25mg Take 25 mg Univers e 25 mg 4-16 by mouth ity of tablet 14:03: every 12 [place] 58 (twelve) Medical hours as Branch needed. busPIRone 2021-0 Yes 15mg Take 15 mg Un you 15 mg 4-16 by mouth 3 ity of tablet 14:03: (three) [place] 58 times Medical daily. For Branch anxiety QUEtiapine 2021-0 Yes 400mg Take 400 Un you (SEROQUEL) 4-16 mg by ity of 400 mg 14:03: mouth [place] tablet 58 daily. Medical Patient Branch doesn't like to take it divalproex 2021-0 Yes 500mg Take 500 Un you ER 4-16 mg by ity of (DEPAKOTE 14:03: mouth 2 [place] ER) 500 mg 58 (two) Medical 24 hr times Branch tablet daily. For anxiety lactulose 2021-0 Yes 15mL 15 mL, Univer s (CEPHULAC) 4-16 Oral, ity of solution 15 14:00: DAILY, [place] mL 00 First dose Medical (after Branch last reorder) on 07/29/21 at 0900, Until Discontinu ed, Routine proMETHazin 2021-0 Yes [id number] 25mg Take 1 Univers e 25 mg 4-16 tablet by ity of tablet 00:00: mouth [place] 00 every 4 Medical (four) Branch hours as needed for Nausea and Vomiting (N/V). proMETHazin 2022-0 Yes [id number] 25mg Take 1 Univers e 25 mg 4-16 tablet by ity of tablet 00:00: mouth [place] 00 every 4 Medical (four) Branch hours as needed for Nausea and Vomiting (N/V). proMETHazin 2021- Yes [id number] 25mg Take 1 Univers e 25 mg 4-16 tablet by ity of tablet 00:00: mouth [place] 00 every 4 Medical (four) Branch hours as needed for Nausea and Vomiting (N/V). proMETHazin 2- No [id number] 25mg Take 1 Univers e 25 mg 4-16 05-27 tablet by ity of tablet 00:00: 00:00 mouth [place] 00 :00 every 4 Medical (four) Branch hours as needed for Nausea and Vomiting (N/V). docusate 2021- No [id number] 100mg Take 1 Univers 100 mg 4-16 05-17 capsule by ity of capsule 00:00: 04:59 mouth [place] 00 :00 daily for Medical 30 days. Branch hydrALAZINE 2021- No [id number] 50mg Take 1 Univers 50 mg 4-16 05-17 tablet by ity of tablet 00:00: 04:59 mouth 2 [place] 00 :00 (two) Medical times Branch daily for 30 days. docusate 2021- No [id number] 100mg Take 1 Univers 100 mg 4-16 05-17 capsule by ity of capsule 00:00: 04:59 mouth [place] 00 :00 daily for Medical 30 days. Branch hydrALAZINE 2021- No [id number] 50mg Take 1 Univers 50 mg 4-16 05-17 tablet by ity of tablet 00:00: 04:59 mouth 2 [place] 00 :00 (two) Medical times Branch daily for 30 days. docusate 2021- No [id number] 100mg Take 1 Univers 100 mg 4-16 05-17 capsule by ity of capsule 00:00: 04:59 mouth [place] 00 :00 daily for Medical 30 days. Branch hydrALAZINE 2021- No [id number] 50mg Take 1 Univers 50 mg 4-16 05-17 tablet by ity of tablet 00:00: 04:59 mouth 2 [place] 00 :00 (two) Medical times Branch daily for 30 days. HYDROcodone 2021- No [id number] 1{tbl} Take 1 U nivers -acetaminop 4-16 04-22 tablet by it y of hen (NORCO) 00:00: 04:59 mouth [place] 10-325 mg 00 :00 every 6 Medical tablet (six) Branch hours as needed for Pain (scale 7-10) for up to 5 days. Indication s: acute pain HYDROcodone 2021- No [id number] 1{tbl} Take 1 U nivers -acetaminop 07-29 tablet by it y of hen (NORCO) 00:00: 04:59 mouth [place] 10-325 mg 00 :00 every 6 Medical tablet (six) Branch hours as needed for Pain (scale 7-10) for up to 5 days. Indication s: acute pain lactulose 2021- No 30mL 30 mL, Unive rs (CEPHULAC) 07-28-15 Oral, ity of solution 30 15:30: 15:07 ONCE, 1 [place] mL 00 :00 dose, On Medical Fri Branch 07/28/21 at 1030, Routine amLODIPine 2021- No 5mg 5 mg, Unive rs (NORVASC) 07-28 Oral, ity of tablet 5 mg 15:30: 15:02 ONCE, 1 [place] 00 :00 dose, On Medical Fri Branch 07/28/21 at 1030, Routine HYDROmorpho 2021- No .6mg 0.6 mg, Un you ne 07-28 Slow IV ity of (DILAUDID) 15:05: 15:04 Push, [place] injection 43 :43 Q4HPRN, Medical 0.6 mg Starting Branch on 07/28/21 at 1005, Until 07/30/21 at 1004, Routine, Pain (scale 7-10)
U se approved by (Faculty): ADC PROVIDER hydrALAZINE Yes 50mg 50 mg, Univ ers (APRESOLINE 4-15 Oral, BID, it y of ) tablet 50 01:00: First dose [place] mg 00 (after Medical last Branch modificati on) on [place] 07/27/21 at 2000, Until Discontinu ed, Routine morpHINE 2021- No 4mg 4 mg, Slow Un you injection 4 4-14 04-15 IV Push, ity of mg 18:29: 15:05 Q3HPRN, [place] 31 :55 Starting Medical on [place] Branch 07/27/21 at 1329, Until Sat07/28/21 at 1005, Routine, Pain (scale 7-10) HYDROcodone Yes 1{tbl} 1 tablet, Univers -acetaminop 07-27 Oral, ity of hen (NORCO) 18:19: Q6HPRN, [place] 10-325 mg 10 Starting Medica l tablet 1 on [place] Branch tablet 07/27/21 at 1319, Until Discontinu ed, Routine, Pain (scale 7-10) labetaloL 2021- No 10mg 10 mg, Unive rs (NORMODYNE) 07-27 Slow IV ity of injection 03:00: 02:18 Push, [place] 10 mg 00 :00 ONCE, 1 Medical dose, On Branch Sat07/26/21 at 2200, Routine magnesium No 2g 2 g, IV Univ ers sulfate in 07-27 Piggyback, it y of water 2 01:00: 01:53 Administer [place] gram/50 mL 00 :00 over 60 Medica l (4 %) Minutes, Branch infusion 2 ONCE, 1 g dose, On Sat07/26/21 at 1999, Routine hydrALAZINE 2021- No 25mg 25 mg, Uni vers (APRESOLINE 07-27 Oral, BID, i ty of ) tablet 25 01:00: 18:32 First dose [place] mg 00 :11 on [facility] Medical 07/26/21 at Branch 1999, Until Discontinu ed, Routine hydralAZINE Yes 20mg 20 mg, Univ ers (APRESOLINE 07-26 Slow IV ity o f ) injection 21:30: Push, [place] 20 mg 36 Q4HPRN, Medical Starting Branch on Sat07/26/21 at 1630, Until Discontinu ed, STAT, DBP=>100; SBP=>180<b r>Indicati on: Hypertensi ve Emergency D5W-LR IV Yes 1000mL at 150 Univ ers infusion 4-13 mL/hr, IV ity of 1,000 mL 16:15: Infusion, [place] 00 CONTINUOUS Medical , Starting Branch on Sat07/26/21 at 1115, Until Discontinu ed, Routine QUEtiapine Yes 400mg 400 mg, Uni vers (SEROQUEL) 07-26 Oral, QHS, ity of tablet 400 02:00: First dose [place] mg 00 on [facility] Medical 07/25/21 at Branch 2100, Until Discontinu ed, Routine divalproex Yes 500mg 500 mg, Uni vers (DEPAKOTE) 07-26 Oral, ity of EC tablet 01:00: Q12H, [place] 500 mg 00 First dose Medical on Sat [place] 07/25/21 at 2000, Until Discontinu ed LORazepam 2021- No .5mg 0.5 mg, Univ ers (ATIVAN) 07-26 Slow IV ity of injection 00:45: 00:07 Push, [place] 0.5 mg 00 :00 ONCE, 1 Medical dose, On Branch Sat07/25/21 at 1945, Routine LORazepam Yes .5mg 0.5 mg, Unive rs (ATIVAN) 07-25 Slow IV ity of injection 23:49: Push, [place] 0.5 mg 46 TIDPRN, Medical Starting Branch on Sat07/25/21 at 1849, Until Discontinu ed, Routine, Anxiety hydralAZINE 2021- No 10mg 10 mg, Uni vers (APRESOLINE 07-25 Slow IV ity of ) injection 23:15: 22:31 Push, [place] 10 mg 00 :00 ONCE, 1 Medical dose, On Branch Sat07/25/21 at 1815, STAT
In dication: Hypertensi ve Emergency HYDROmorpho 2021- No 1mg 1 mg, Slow Univers ne 07-25 IV Push, ity of (DILAUDID) 17:59: 17:58 Q4HPRN, [place] injection 1 31 :31 Starting Medi brandy mg on Sat Branch 07/25/21 at 1259, Until [place] 07/27/21 at 1258, Routine, Pain (scale 7-10)
U se approved by (Faculty): ADC PROVIDER docusate Yes 100mg 100 mg, Unive rs (COLACE) 4-12 Oral, BID, ity o f capsule 100 16:30: First dose [place] mg 00 on Sat [facility] 07/25/21 at Branch 1130, Until Discontinu ed, Routine sennosides- 2021- No 1{tbl} 1 tablet, [facility] docusate 07-2515 Oral, ity of sodium 16:30: 21:16 DAILY, [place] (SENOKOT-S) 00 :00 First dose Me dical 8.6-50 mg on Sat [place] per tablet 07/25/21 at 1 tablet 1130, Until Discontinu ed, Routine hydralAZINE No 10mg 10 mg, Uni vers (APRESOLINE 07-25 Slow IV ity of ) injection 16:23: 21:32 Push, [place] 10 mg 02 :00 Q4HPRN, Medical Starting Branch on Sat07/25/21 at 1123, Until Sat07/26/21 at 1632, STAT, DBP=&g t;100; SBP=>160<b r>Indicati on: Hypertensi ve Emergency traZODone Yes 100mg 100 mg, [facility] ers (DESYREL) 07-25 Oral, QHS, ity of tablet 100 02:00: First dose [place] mg 00 on [facility] 07/24/21 at Branch 2100, Until Discontinu ed, Routine morpHINE No 4mg 4 mg, Slow Un you injection 07-25 IV Push, ity of mg 02:00: 17:59 Q3HPRN, [place] 00 :47 Starting Medical on [facility] Branch 07/24/21 at 2100, Until Sat07/25/21 at 1259, Routine, Pain (scale 7-10) proMETHazin Yes 12.5mg 12.5 mg, Univers e 07-24 IV ity of (PHENERGAN) 23:52: Piggyback, [place] 12.5 mg in 45 Q4HPRN, Medica l NaCl 0.9% Starting Branch (NS) 50 mL on [facility] IV 07/24/21 at piggyback 1852, Until Discontinu ed, Routine, Nausea and Vomiting (N/V) morpHINE 2021- No 4mg 4 mg, Slow Un you injection 4 07-24 04-11 IV Push, ity of mg 19:45: 23:44 Q3HPRN, [place] 00 :00 Starting Medical on [facility] 07/24/21 at 1445, Until Sat07/24/21 at 1844, Routine, Pain (scale 7-10) SERTraline 0 Yes 25mg 25 mg, Unive rs (ZOLOFT) 07-24 Oral, ity of tablet 25 14:00: DAILY, [place] mg 00 First dose Medical on [facility] 07/24/21 at 0900, Until Discontinu ed, Routine losartan 0 Yes 100mg 100 mg, Unive rs (COZAAR) 07-24 Oral, ity of tablet 100 14:00: DAILY, [place] mg 00 First dose Medical on [facility] 07/24/21 at 0900, Until Discontinu ed, Routine fenofibrate 0 Yes 134mg 134 mg, Un you micronized 07-24 Oral, ity of (LOFIBRA) 14:00: DAILY, [place] capsule 134 00 First dose Me dical mg on [facility] 07/24/21 at 0900, Until Discontinu ed enoxaparin 0 Yes 30mg 30 mg, Unive rs (LOVENOX) 07-24 Subcutaneo ity of injection 14:00: us, DAILY, [place] 30 mg 00 First dose Medical on [facility] 07/24/21 at 0900, Until Discontinu ed, Routine busPIRone 0 Yes 10mg 10 mg, Univer s (BUSPAR) 07-24 Oral, BID, ity o f tablet 10 13:00: First dose [place] mg 00 on [facility] 07/24/21 at Branch 0800, Until Discontinu ed, Routine gabapentin 0 Yes 300mg 300 mg, Uni vers (NEURONTIN) 07-24 Oral, BID, it y of capsule 300 13:00: First dose [place] mg 00 on [facility] 07/24/21 at Branch 0800, Until Discontinu ed, Routine lactated 2021-0 2021- No 1000mL at 150 Univ ers ringers IV 07-24 04-13 mL/hr, ity of infusion 13:00: 15:03 1,000 mL, [place] 1,000 mL 00 :17 IV Medical Infusion, Branch CONTINUOUS , Starting on Sat07/24/21 at 0800, Until Sat07/26/21 at 1003, Routine magnesium No 2g 2 g, IV Univ ers sulfate in 07-24 Piggyback, it y of water 2 12:45: 15:00 Administer [place] gram/50 mL 00 :00 over 60 Medica l (4 %) Minutes, Branch infusion 2 ONCE, 1 g dose, On Sat07/24/21 at 0745, Routine ondansetron Yes 4mg 4 mg, Slow Univers (ZOFRAN 07-24 IV Push, ity of (PF)) 04:26: Q6HPRN, [place] injection 4 35 Starting Medi brandy mg on [facility] 07/23/21 at 2326, Until Discontinu ed, [place], Nausea and Vomiting (N/V) FENTanyl PF No 75ug 75 mcg, Un you (SUBLIMAZE 07-24 Slow IV ity o f (PF)) 00:15: 23:11 Push, [place] injection 00 :00 ONCE, 1 Medical 75 mcg dose, On [facility] 07/23/21 at 1915, STAT iopamidol 2021- No [id number] 100mL 100 mL, Univers (ISOVUE 07-24 Intravenou ity o f 370-500 mL) 00:00: 00:00 s, ONCE, 1 [place] injection 00 :00 dose, On Medica l 100 mL [facility] 07/23/21 at 1900, Routine morpHINE No 4mg 4 mg, Slow Un you injection 4 07-23 IV Push, ity of mg 23:57: 19:32 Q4HPRN, [place] 08 :42 Starting Medical on [facility] 07/23/21 at 1857, Until Sat07/24/21 at 1432, Routine, Pain (scale 7-10) HYDROcodone 2021- No 1{tbl} 1 tablet, Univers -acetaminop 07-23 Oral, ity of hen (NORCO 23:57: 23:56 Q6HPRN, [place] 5) 5-325 mg 06 :06 Starting Medi brandy tablet 1 on [facility] tablet 07/23/21 at 1857, Until Sat07/25/21 at 1856, Routine, Pain (scale 4-6) acetaminoph Yes 650mg 650 mg, Un you en 10 Oral, ity of (TYLENOL) 23:57: Q6HPRN, [place] tablet 650 04 Starting Medic al mg on [facility] 07/23/21 at 1857, Until Discontinu ed, Routine, Pain (scale 1-3) haloperidol 2021- No 2.5mg 2.5 mg, U nivers lactate 07-23- Intravenou ity o f (HALDOL) 23:30: 22:31 s, ONCE, 1 [place] injection 00 :00 dose, On Medica l 2.5 mg [facility] 07/23/21 at 1830, STAT ondansetron 2021- No 4mg 4 mg, Slow Univers (ZOFRAN 07-23 IV Push, ity of (PF)) 22:00: 21:22 ONCE, 1 [place] injection 4 00 :00 dose, On Medi brandy mg [facility] 07/23/21 at 1700, [place] FENTanyl PF 2021- No 75ug 75 mcg, Un you (SUBLIMAZE 07-23 Slow IV ity o f (PF)) 22:00: 21:24 Push, [place] injection 00 :00 ONCE, 1 Medical 75 mcg dose, On [facility] 07/23/21 at 1700, Routine NaCl 0.9% 2021- No 1000mL at 999 Uni vers (NS) bolus 07-23-10 mL/hr, ity of infusion 22:00: 23:41 1,000 mL, [place] 1,000 mL 00 :00 IV Medical Infusion, [place] ONCE, 1 dose, On [place] 07/23/21 at 1700, [place] water for Yes PRN, Univers irrigation 07-04 Starting ity o f irrigation 16:35: on Sat [place] solution 00 07/04/21 at Medic al 1135, Branch Until Discontinu ed, Routine, Intra-op simethicone Yes PRN, Univer s (GAS RELIEF 07-04 Starting ity of (SIMETHICON 16:35: on Tue [place] E)) 40 00 07/04/21 at Medical mg/0.6 mL 1135, Branch drops Until Discontinu ed, Routine, Intra-op water for 2021- No PRN, Univers irrigation 07-04 Starting ity of irrigation 16:35: 20:27 on Sat [place] solution 00 :50 07/04/21 at Medic al 1135, Branch Until Sat07/04/21 at 1527, Routine, Intra-op simethicone 2021- No PRN, Unive rs (GAS RELIEF 07-04 Starting ity of (SIMETHICON 16:35: 20:27 on Sat [place] E)) 40 00 :50 07/04/21 at Medical mg/0.6 mL 1135, Branch drops Until e 07/04/21 at 1527, Routine, Intra-op lactated 2021- No 1000mL at 42 [facility] rs ringers IV 07-04 03-22 mL/hr, ity of infusion 16:15: 16:04 1,000 mL, [place] 1,000 mL 00 :00 IV Medical Infusion, Branch ONCE, 1 dose, On Sat07/04/21 at 1115, Routine, DSU Pre-op lactated 2021- No 1000mL at [address] [facility] 07-04-22 mL/hr, ity of infusion 16:15: 16:04 1,000 mL, [place] 1,000 mL 00 :00 IV Medical Infusion, Branch ONCE, 1 dose, On Sat07/04/21 at 1115, Routine, DSU Pre-op traZODone Yes 100mg Take 100 Uni vers 100 mg 3-22 mg by ity of tablet 13:27: mouth at [place] [address] bedtime. Medical Branch losartan Yes 100mg Take 100 Univ ers 100 mg 3-22 mg by ity of tablet 13:27: mouth [place] [address] daily. Medical Branch gabapentin Yes 300mg Take 300 Un you 300 mg 3-22 mg by ity of capsule 13:27: mouth 2 [place] [address] (two) Medical times Branch daily. proMETHazin Yes 25mg Take 25 mg Univers e 25 mg 3-22 by mouth ity of tablet 13:27: every 12 [place] 47 (twelve) Medical hours as Branch needed. busPIRone 2022-0 Yes 15mg Take 15 mg Un you 15 mg 3-22 by mouth 3 ity of tablet 13:27: (three) [place] 47 times Medical daily. For Branch anxiety QUEtiapine 2022-0 Yes 400mg Take 400 Un you (SEROQUEL) 3-22 mg by ity of 400 mg 13:27: mouth [place] tablet 47 daily. Medical Patient Branch doesn't like to take it divalproex 2022-0 Yes 500mg Take 500 Un you ER 3-22 mg by ity of (DEPAKOTE 13:27: mouth 2 [place] ER) 500 mg 47 (two) Medical 24 hr times Branch tablet daily. For anxiety traZODone 2022-0 Yes 100mg Take 100 Uni vers 100 mg 3-22 mg by ity of tablet 13:27: mouth at [place] 47 bedtime. Medical Branch losartan 2022-0 Yes 100mg Take 100 Univ ers 100 mg 3-22 mg by ity of tablet 13:27: mouth [place] 47 daily. Medical Branch gabapentin 2022-0 Yes 300mg Take 300 Un you 300 mg 3-22 mg by ity of capsule 13:27: mouth 2 [place] 47 (two) Medical times Branch daily. proMETHazin 2022-0 Yes 25mg Take 25 mg Univers e 25 mg 3-22 by mouth ity of tablet 13:27: every 12 [place] 47 (twelve) Medical hours as Branch needed. busPIRone 2022-0 Yes 15mg Take 15 mg Un you 15 mg 3-22 by mouth 3 ity of tablet 13:27: (three) [place] 47 times Medical daily. For Branch anxiety QUEtiapine 2022-0 Yes 400mg Take 400 Un you (SEROQUEL) 3-22 mg by ity of 400 mg 13:27: mouth [place] tablet 47 daily. Medical Patient Branch doesn't like to take it divalproex 2022-0 Yes 500mg Take 500 Un you ER 3-22 mg by ity of (DEPAKOTE 13:27: mouth 2 [place] ER) 500 mg 47 (two) Medical 24 hr times Branch tablet daily. For anxiety traZODone 2022-0 Yes 100mg Take 100 Uni vers 100 mg 3-22 mg by ity of tablet 13:27: mouth at [place] 47 bedtime. Medical Branch losartan 2021-0 Yes 100mg Take 100 Univ ers 100 mg 3-22 mg by ity of tablet 13:27: mouth [place] 47 daily. Medical Branch gabapentin 0 Yes 300mg Take 300 Un you 300 mg 3-22 mg by ity of capsule 13:27: mouth 2 [place] 47 (two) Medical times Branch daily. proMETHazin 0 Yes 25mg Take 25 mg Univers e 25 mg 3-22 by mouth ity of tablet 13:27: every 12 [place] 47 (twelve) Medical hours as Branch needed. busPIRone 0 Yes 15mg Take 15 mg Un you 15 mg 3-22 by mouth 3 ity of tablet 13:27: (three) [place] 47 times Medical daily. For Branch anxiety QUEtiapine 0 Yes 400mg Take 400 Un you (SEROQUEL) 3-22 mg by ity of 400 mg 13:27: mouth [place] tablet 47 daily. Medical Patient Branch doesn't like to take it divalproex 0 Yes 500mg Take 500 Un you ER 3-22 mg by ity of (DEPAKOTE 13:27: mouth 2 [place] ER) 500 mg 47 (two) Medical 24 hr times Branch tablet daily. For anxiety ondansetron 2021- No 4mg 4 mg, Slow Univers (ZOFRAN 2-20 02-20 IV Push, ity of (PF)) 04:30: 03:37 ONCE, 1 [place] injection 4 00 :00 dose, On Medi brandy mg Sat Branch 06/03/21 at 2230, [facility] labetaloL 0 2021- No 20mg 20 mg, Unive rs (NORMODYNE) 2-20 02-20 Slow IV ity of injection 04:30: 16:29 Push, [place] 20 mg 00 :00 ONCE, 1 Medical dose, On Branch 06/03/21 at 2230, [place] morpHINE 2021-0 2021- No 4mg 4 mg, Slow Un you injection 4 2-20 02-20 IV Push, ity of mg 04:30: 03:37 ONCE, 1 [place] 00 :00 dose, On Medical Sat Branch 06/03/21 at 2230, STAT pantoprazol 2022-0 Yes 40mg 40 mg, Univ ers e 2-20 Slow IV ity of (PROTONIX) 02:00: Push, [place] injection 00 Q12H, Medical 40 mg First dose Branch on 06/03/21 at 1999, Until Discontinu ed maalox:diph 2021- No 15mL 15 mL, Uni vers enhydrAMINE 06-0420 Oral, ity of :lidocaine 02:00: 01:01 ONCE, 1 [place] 2 % viscous 00 :00 dose, On Medi brandy 1:1:1 Sat Branch ([facility] 06/03/21 at [facility]) 1999, [facility] oral suspension 15 mL iopamidol 2021- No [id number] 100mL 100 mL, Univers (ISOVUE 06-04 Intravenou ity o f 370-500 mL) 01:28: 01:29 s, ONCE, 1 [place] injection 00 :00 dose, On Medica l 100 mL Sat Branch 06/03/21 at 1945, Routine FENTanyl PF 2021- No 100ug 100 mcg, Univers (SUBLIMAZE 06-03 Slow IV ity o f (PF)) 23:45: 22:40 Push, [place] injection 00 :00 ONCE, 1 Medical 100 mcg dose, On Branch 06/03/21 at 1745, STAT ondansetron 2021- No 4mg 4 mg, Slow Univers (ZOFRAN 06-03 IV Push, ity of (PF)) 21:30: 20:49 ONCE, 1 [place] injection 4 00 :00 dose, On Medi brandy mg Sat Branch 06/03/21 at 1530, [place] FENTanyl PF 2021- No 100ug 100 mcg, Univers (SUBLIMAZE 06-03 Slow IV ity o f (PF)) 21:30: 20:50 Push, [place] injection 00 :00 ONCE, 1 Medical 100 mcg dose, On Branch 06/03/21 at 1530, Routine proMETHazin Yes [id number] 25mg Insert 1 [facility] e 25 mg 06-03 Suppositor ity of suppository 00:00: y into [place] 00 rectum Medical every 4 Branch (four) hours as needed for Nausea and Vomiting (N/V), N/V unresponsi ve to Ondansetro n or N/V unresponsi ve to oral antiemetic s. proMETHazin Yes [id number] 25mg Insert 1 Univers e 25 mg 2-19 Suppositor ity of suppository 00:00: y into [place] 00 rectum Medical every 4 Branch (four) hours as needed for Nausea and Vomiting (N/V), N/V unresponsi ve to Ondansetro n or N/V unresponsi ve to oral antiemetic s. proMETHazin Yes [id number] 25mg Insert 1 Univers e 25 mg 2-19 Suppositor ity of suppository 00:00: y into [place] 00 rectum Medical every 4 Branch (four) hours as needed for Nausea and Vomiting (N/V), N/V unresponsi ve to Ondansetro n or N/V unresponsi ve to oral antiemetic s. proMETHazin Yes [id number] 25mg Insert 1 Univers e 25 mg 2-19 Suppositor ity of suppository 00:00: y into [place] 00 rectum Medical every 4 Branch (four) hours as needed for Nausea and Vomiting (N/V), N/V unresponsi ve to Ondansetro n or N/V unresponsi ve to oral antiemetic s. proMETHazin Yes [id number] 25mg Insert 1 Univers e 25 mg 2-19 Suppositor ity of suppository 00:00: y into [place] 00 rectum Medical every 4 Branch (four) hours as needed for Nausea and Vomiting (N/V), N/V unresponsi ve to Ondansetro n or N/V unresponsi ve to oral antiemetic s. proMETHazin Yes [id number] 25mg Insert 1 Univers e 25 mg 2-19 Suppositor ity of suppository 00:00: y into [place] 00 rectum Medical every 4 Branch (four) hours as needed for Nausea and Vomiting (N/V), N/V unresponsi ve to Ondansetro n or N/V unresponsi ve to oral antiemetic s. proMETHazin Yes [id number] 25mg Insert 1 Univers e 25 mg 2-19 Suppositor ity of suppository 00:00: y into [place] 00 rectum Medical every 4 Branch (four) hours as needed for Nausea and Vomiting (N/V), N/V unresponsi ve to Ondansetro n or N/V unresponsi ve to oral antiemetic s. proMETHazin 2021- No [id number] 25mg Insert 1 Univers e 25 mg 06-03 Suppositor ity o f suppository 00:00: 00:00 y into [place] 00 :00 rectum Medical every 4 Branch (four) hours as needed for Nausea and Vomiting (N/V), N/V unresponsi ve to Ondansetro n or N/V unresponsi ve to oral antiemetic s. morpHINE 2021- No 4mg 4 mg, Slow Un you injection 4 05-22 IV Push, ity of mg 07:30: 06:35 ONCE, 1 [place] 00 :00 dose, On Medical 05/22/21 Branch at 0130, STAT ondansetron 2021- No 4mg 4 mg, Slow Univers (ZOFRAN 05-22 IV Push, ity of (PF)) 07:30: 06:35 ONCE, 1 [place] injection 4 00 :00 dose, On Medi brandy mg [facility] 05/22/21 Branch at 0130, [facility] iohexol 2021- No [id number] 100mL 100 mL, Univers (OMNIPAQUE 05-22 Intravenou it y of 350 06:15: 06:04 s, ONCE, 1 [place] BULK-100 00 :00 dose, On Medical mL) [facility] 05/22/21 Branch injection at 0015, 100 mL Routine traZODone Yes 100mg Take 100 Uni vers 100 mg 2-06 mg by ity of tablet 23:27: mouth at [place] 53 bedtime. Medical Branch traZODone Yes 100mg Take 100 Uni vers 100 mg 2-06 mg by ity of tablet 23:27: mouth at [place] 53 bedtime. Medical Branch gabapentin Yes 300mg Take 300 Un you 300 mg 2-06 mg by ity of capsule 23:27: mouth 2 [place] 26 (two) Medical times Branch daily. gabapentin 2022-0 Yes 300mg Take 300 Un you 300 mg 2-06 mg by ity of capsule 23:27: mouth 2 [place] 26 (two) Medical times Branch daily. erythromyci 0 2021- No erythromyc Univers n 5 mg/gram -09 14-06 in 5 ity of (0.5 %) 23:26: [...] ity o f 09:16: Medical Branch erythromyci 2021-0 Yes erythromyc Univers n 5 mg/gram 2-03 in 5 ity of (0.5 %) 09:16: mg/gram [place] ophthalmic 01 (0.5 %) Medica l ointment eye Branch ointment losartan 2021-0 Yes 100mg Take 100 Univ ers 100 mg 2-03 mg by ity of tablet 09:16: mouth [place] 01 daily. Medical Branch gabapentin 2021-0 Yes 300mg Take 300 Un you 300 mg 2-03 mg by ity of capsule 09:16: mouth 2 [place] 01 (two) Medical times Branch daily. diazePAM 2 2021-0 Yes 2mg Take 2 mg Un you mg tablet 2-03 by mouth. ity o f 09:16: Medical Branch erythromyci 2021-0 Yes erythromyc Univers n 5 mg/gram 2-03 in 5 ity of (0.5 %) 09:16: mg/gram [place] ophthalmic 01 (0.5 %) Medica l ointment eye Branch ointment losartan 2021-0 Yes 100mg Take 100 Univ ers 100 mg 2-03 mg by ity of tablet 09:16: mouth [place] 01 daily. Medical Branch gabapentin Yes 300mg Take 300 Un you 300 mg 2-03 mg by ity of capsule 09:16: mouth 2 [place] 01 (two) Medical times Branch daily. diazePAM 2 Yes 2mg Take 2 mg Un you mg tablet 2-03 by mouth. ity o f 09:16: [place] 01 Medical Branch erythromyci Yes erythromyc Univers n 5 mg/gram 2-03 in 5 ity of (0.5 %) 09:16: mg/gram [place] ophthalmic 01 (0.5 %) Medica l ointment eye Branch ointment losartan Yes 100mg Take 100 Univ ers 100 mg 2-03 mg by ity of tablet 09:16: mouth [place] 01 daily. Medical Branch losartan Yes 100mg Take 100 Univ ers 100 mg 2-03 mg by ity of tablet 09:16: mouth [place] 01 daily. Medical Branch montelukast 2021- No [id number] 10mg Take 1 Univers (SINGULAIR) 2-03 03-06 tablet by it y of 10 mg 00:00: 05:59 mouth [place] tablet 00 :00 daily for Medical 30 days. Branch montelukast 2021- No [id number] 10mg Take 1 Univers (SINGULAIR) 2-03 03-06 tablet by it y of 10 mg 00:00: 05:59 mouth [place] tablet 00 :00 daily for Medical 30 days. Branch montelukast 2021- No [id number] 10mg Take 1 Univers (SINGULAIR) 2-03 03-06 tablet by it y of 10 mg 00:00: 05:59 mouth [place] tablet 00 :00 daily for Medical 30 days. Branch benzonatate 2021- No [id number] 200mg Take 2 Univers (TESSALON 2-03 02-14 capsules ity o f PERLES) 100 00:00: 05:59 by mouth [place] mg capsule 00 :00 every 8 Medica l (eight) Branch hours for 10 days. benzonatate 2021- No [id number] 200mg Take 2 Univers (TESSALON 2-03 02-14 capsules ity o f PERLES) 100 00:00: 05:59 by mouth [place] mg capsule 00 :00 every 8 Medica l (eight) Branch hours for 10 days. benzonatate 2021- No [id number] 200mg Take 2 Univers (TESSALON 2-03 02-14 capsules ity o f PERLES) 100 00:00: 05:59 by mouth [place] mg capsule 00 :00 every 8 Medica l (eight) Branch hours for 10 days. benzonatate 2021- No [id number] 200mg Take 2 Univers (TESSALON 2-03 02-06 capsules ity o f PERLES) 100 00:00: 00:00 by mouth [place] mg capsule 00 :00 every 8 Medica l (eight) Branch hours for 10 days. montelukast 2021- No [id number] 10mg Take 1 Univers (SINGULAIR) 05-18-06 tablet by it y of 10 mg 00:00: 00:00 mouth [place] tablet 00 :00 daily for Medical 30 days. Branch traZODone Yes 100mg Take 100 Uni vers 100 mg 1-03 mg by ity of tablet 10:57: mouth at [place] [address] bedtime. Medical Branch losartan Yes 100mg Take 100 Univ ers 100 mg 1-03 mg by ity of tablet 10:57: mouth [place] 34 daily. Medical Branch gabapentin Yes 300mg Take [...] by ity of tablet 10:57: mouth at [place] [address] bedtime. Medical Branch traZODone Yes 100mg Take 100 Uni vers 100 mg 1-03 mg by ity of tablet 10:57: mouth at [place] 34 bedtime. Medical Branch traZODone Yes 100mg Take 100 Uni vers 100 mg 1-03 mg by ity of tablet 10:57: mouth at [place] [address] bedtime. Medical Branch maalox:diph 2021- No 15mL 15 mL, Uni vers enhydrAMINE 04-15 Oral, ity of :lidocaine 20:45: 20:38 ONCE, 1 [place] 2 % viscous 00 :00 dose, On Medi brandy 1:1:1 04/15/21 Branch ([facility] at 1445, [facility]) Routine oral suspension 15 mL famotidine No 40mg 40 mg, Univ ers (PEPCID 04-15 Slow IV ity of (PF)) 20:45: 20:39 Push, [place] injection 00 :00 ONCE, 1 Medical 40 mg dose, On Branch 04/15/21 at 1445, [place] ondansetron No 4mg 4 mg, Slow Univers (ZOFRAN 04-15 IV Push, ity of (PF)) 20:45: 20:37 ONCE, 1 [place] injection 4 00 :00 dose, On Medi brandy mg 04/15/21 Branch at 1445, [facility] NaCl 0.9% No 1000mL at 999 Uni vers (NS) bolus 04-15 mL/hr, ity of infusion 20:45: 21:38 1,000 mL, [place] 1,000 mL 00 :00 IV Medical Infusion, Branch ONCE, 1 dose, On 04/15/21 at 1445, [place] iopamidol 2021- No [id number] 120mL 120 mL, Univers (ISOVUE 04-15 Intravenou ity o f 370-500 mL) 20:13: 20:14 s, ONCE, 1 [place] injection 00 :00 dose, On Medica l 120 mL 04/15/21 Branch at 1430, Routine famotidine 2021- No [id number] 40mg Take 2 Univers (PEPCID) 20 04-15 tablets by i ty of mg tablet 00:00: 05:59 mouth 2 [place] 00 :00 (two) Medical times Branch daily for 15 days. proMETHazin 2021- No [id number] 25mg Take 1 Univers e 25 mg [...] dication: Hypertensi ve Emergency dicyclomine 2020-04 Yes [id number] 20mg 20 mg, Univers (BENTYL) 05-27 Intramuscu ity o f injection 02:00: lar, QID, [place] 20 mg 00 First dose Medical on Sat Branch 03/25/21 at 2000, Until Discontinu ed, Routine iopamidol 2020-04- No [id number] 120mL 120 mL, Univers (ISOVUE 05-27 Intravenou ity o f 370-500 mL) 01:58: 01:58 s, ONCE, 1 [place] injection 00 :00 dose, On Medica l 120 mL Sat Branch 03/25/21 at 2015, Routine NaCl 0.9% 2020-04- No [id number] 1000mL at 999 Univers (NS) bolus 05-27 mL/hr, ity of infusion 01:30: 03:00 1,000 mL, [place] 1,000 mL 00 :00 IV Medical Infusion, Branch ONCE, 1 dose, On 03/25/21 at 1930, [place] ondansetron 2020-04- No [id number] 4mg 4 mg, Slow Univers (ZOFRAN 05-27 IV Push, ity of (PF)) 01:30: 01:48 ONCE, 1 [place] injection 4 00 :00 dose, On Medi brandy mg Sat Branch 03/25/21 at 1930, [place] famotidine 2020-04 No [id number] 20mg 20 mg, Univers (PEPCID 05-27 Slow IV ity of (PF)) 01:30: 01:48 Push, [place] injection 00 :00 ONCE, 1 Medical 20 mg dose, On Branch 03/25/21 at 1930, [place] ketorolac 2020-04 No [id number] 30mg 30 mg, U nivers (TORADOL) 05-27 Slow IV ity of injection 01:30: 01:49 Push, [place] 30 mg 00 :00 ONCE, 1 Medical dose, On Branch 03/25/21 at 1930, [place] FENTanyl PF 2020-04 No [id number] 75ug 75 mcg, Univers (SUBLIMAZE 05-27 Slow IV ity o f (PF)) 01:30: 01:48 Push, [place] injection 00 :00 ONCE, 1 Medical 75 mcg dose, On Branch 03/25/21 at 1930, STAT famotidine 2020-04 No 20mg 20 mg, Univ ers (PEPCID AC) 05-22 Oral, ity of tablet 20 02:00: 01:13 ONCE, 1 [place] mg 00 :00 dose, On Medical Mon Branch 03/20/21 at 1999, [place] FENTanyl PF 2020-04 No 25ug 25 mcg, Un you (SUBLIMAZE 05-22 Slow IV ity o f (PF)) 02:00: 01:13 Push, [place] injection 00 :00 ONCE, 1 Medical 25 mcg dose, On Branch 03/20/21 at 2000, STAT diphenhydrA 2020-04 No 12.5mg 12.5 mg, Univers MINE 05-22 Slow IV ity of (BENADRYL) 02:00: 01:13 Push, [place] injection 00 :00 ONCE, 1 Medical 12.5 mg dose, On Branch 03/20/21 at 2000, STAT metoclopram 2020-04- No 10mg 10 mg, Uni vers selena HCl 05-22 Slow IV ity of (REGLAN) 02:00: 01:13 Push, [place] injection 00 :00 ONCE, 1 Medical 10 mg dose, On Branch [facility] 03/20/21 at 2000, [place] FENTanyl PF 2020-04- No 75ug 75 mcg, Un you (SUBLIMAZE 05-21 Slow IV ity o f (PF)) 23:30: 22:45 Push, [place] injection 00 :00 ONCE, 1 Medical 75 mcg dose, On [facility] 03/20/21 at 1730, Routine ketorolac 2020-04- No 30mg 30 mg, Unive rs (TORADOL) 05-21 Slow IV ity of injection 23:30: 22:44 Push, [place] 30 mg 00 :00 ONCE, 1 Medical dose, On Branch [facility] 03/20/21 at 1730, Routine
environmental studies faculty member approving Restricted medication : MEKA HAMMONDS ondansetron 2020-04- No 4mg 4 mg, Slow Univers (ZOFRAN 05-21 IV Push, ity of (PF)) 23:30: 22:44 ONCE, 1 [place] injection 4 00 :00 dose, On Medi brandy mg [facility] 03/20/21 at 1730, [place] dicyclomine 2020-04- No 20mg 20 mg, Uni vers (BENTYL) 05-21 Intramuscu ity of injection 23:30: 23:15 lar, ONCE, [place] 20 mg 00 :00 1 dose, On Medical [facility] 03/20/21 at 1730, Routine iopamidol 2020-04- No 100mL 100 mL, Uni vers (ISOVUE 05-21 Intravenou ity o f 370-500 mL) 22:50: 23:15 s, ONCE, 1 [place] injection 00 :00 dose, On Medica l 100 mL [facility] 03/20/21 at 1715, Routine ondansetron 2020-04- No ondansetro Univers 4 mg tablet 05-21 n HCl 4 mg i ty of 18:55: 00:00 tablet [place] 24 :00 [facility] metoclopram 2020-04 Yes [id number] 10mg Take 1 Univers selena HCl 10 2-06 tablet by ity of mg tablet 00:00: mouth [place] 00 every 6 Medical (six) Branch hours as needed for Nausea and Vomiting (N/V). dicyclomine 2020-04 Yes [id number] 20mg Take 1 [facility] 20 mg 2-06 tablet by ity of tablet 00:00: mouth 4 [place] 00 (four) Medical times Branch daily. metoclopram 2020-04 Yes [id number] 10mg Take 1 [facility] selena HCl 10 2-06 tablet by ity of mg tablet 00:00: mouth [place] 00 every 6 Medical (six) Branch hours as needed for Nausea and Vomiting (N/V). dicyclomine 2020-04 Yes [id number] 20mg Take 1 [facility] 20 mg 2-06 tablet by ity of tablet 00:00: mouth 4 00 (four) Medical times Branch daily. metoclopram 2020-04 Yes [id number] 10mg Take 1 Univers selena HCl 10 2-06 tablet by ity of mg tablet 00:00: mouth [place] 00 every 6 Medical (six) Branch hours as needed for Nausea and Vomiting (N/V). dicyclomine 2020-04 Yes [id number] 20mg Take 1 Univers 20 mg 2-06 tablet by ity of tablet 00:00: mouth 4 00 (four) Medical times Branch daily. metoclopram 2020-04 Yes [id number] 10mg Take 1 Univers selena HCl 10 2-06 tablet by ity of mg tablet 00:00: mouth [place] 00 every 6 Medical (six) Branch hours as needed for Nausea and Vomiting (N/V). dicyclomine 2020-04 Yes [id number] 20mg Take 1 Univers 20 mg 2-06 tablet by ity of tablet 00:00: mouth 4 00 (four) Medical times Branch daily. metoclopram 2020-04 Yes [id number] 10mg Take 1 Univers selena HCl 10 2-06 tablet by ity of mg tablet 00:00: mouth [place] 00 every 6 Medical (six) Branch hours as needed for Nausea and Vomiting (N/V). dicyclomine 2020-04 Yes [id number] 20mg Take 1 Univers 20 mg 2-06 tablet by ity of tablet 00:00: mouth 4 [place] 00 (four) Medical times Branch daily. metoclopram 2020-04 Yes [id number] 10mg Take 1 Univers selena HCl 10 2-06 tablet by ity of mg tablet 00:00: mouth [place] 00 every 6 Medical (six) Branch hours as needed for Nausea and Vomiting (N/V). dicyclomine 2020-04 Yes [id number] 20mg Take 1 [facility] 20 mg 2-06 tablet by ity of tablet 00:00: mouth 4 [place] 00 (four) Medical times Branch daily. metoclopram 2020-04 Yes [id number] 10mg Take 1 Univers selena HCl 10 2-06 tablet by ity of mg tablet 00:00: mouth [place] 00 every 6 Medical (six) Branch hours as needed for Nausea and Vomiting (N/V). dicyclomine 2020-04 Yes [id number] 20mg Take 1 Univers 20 mg 2-06 tablet by ity of tablet 00:00: mouth 4 [place] 00 (four) Medical times Branch daily. metoclopram 2020-04 Yes [id number] 10mg Take 1 Univers selena HCl 10 2-06 tablet by ity of mg tablet 00:00: mouth [place] 00 every 6 Medical (six) Branch hours as needed for Nausea and Vomiting (N/V). dicyclomine 2020-04 Yes [id number] 20mg Take 1 Univers 20 mg 2-06 tablet by ity of tablet 00:00: mouth 4 [place] 00 (four) Medical times Branch daily. metoclopram 2020-04 Yes [id number] 10mg Take 1 Univers selena HCl 10 2-06 tablet by ity of mg tablet 00:00: mouth [place] 00 every 6 Medical (six) Branch hours as needed for Nausea and Vomiting (N/V). dicyclomine 2020-04 Yes [id number] 20mg Take 1 Univers 20 mg 2-06 tablet by ity of tablet 00:00: mouth 4 [place] 00 (four) Medical times Branch daily. metoclopram 2020-04- No [id number] 10mg Take 1 Univers selena HCl 10 2-06 02-06 tablet by ity of mg tablet 00:00: 00:00 mouth [place] 00 :00 every 6 Medical (six) Branch hours as needed for Nausea and Vomiting (N/V). dicyclomine 2020-04- No [id number] 20mg Take 1 Univers 20 mg 2-06 02-06 tablet by ity of tablet 00:00: 00:00 mouth 4 [place] 00 :00 (four) Medical times Branch daily. famotidine 2020-04- No [id number] 20mg Take 1 [facility] 20 mg 2-17 tablet by ity of tablet 00:00: 05:59 mouth at [place] 00 :00 bedtime Medical for 10 Branch days. famotidine 2020-04- No [id number] 20mg Take 1 [facility] 20 mg 2 12-17 tablet by ity of tablet 00:00: 05:59 mouth at [place] 00 :00 bedtime Medical for 10 Branch days. famotidine 2020-04- No [id number] 20mg Take 1 Univers 20 mg 2-17 tablet by ity of tablet 00:00: 05:59 mouth at [place] 00 :00 bedtime Medical for 10 Branch days. ketorolac 2020-04 No 30mg 30 mg, Unive rs (TORADOL) 04-15 Slow IV ity of injection 02:15: 01:11 Push, [place] 30 mg 00 :00 ONCE, 1 Medical dose, On Branch [place] 02/12/21 at 2115, Routine
environmental studies faculty member approving Restricted medication : ERASMO GRAYSON proMETHazin 2020-04- No 25mg 25 mg, IV Univers e 04-15 Piggyback, ity of (PHENERGAN) 02:15: 01:12 ONCE, 1 [place] 25 mg in 00 :00 dose, On Medical NaCl 0.9% [facility] (NS) 50 mL 02/12/21 piggyback at 2115, 50 mL iopamidol 2020-04- No [id number] 120mL 120 mL, Univers (ISOVUE 02-12 Intravenou ity o f 370-500 mL) 23:30: 22:13 s, ONCE, 1 [place] injection 00 :00 dose, On Medica l 120 mL [place] Branch 02/12/21 at 1830, Routine morpHINE 2020-04- No 4mg 4 mg, Slow Un you injection 4 02-12 IV Push, ity of mg 23:15: 22:23 ONCE, 1 [place] 00 :00 dose, On Medical [place] Branch 02/12/21 at 1815, STAT famotidine 2020-04- No 20mg 20 mg, Univ ers (PEPCID 0-31 10-31 Slow IV ity of (PF)) 21:30: 20:28 Push, [place] injection 00 :00 ONCE, 1 Medical 20 mg dose, On Branch [place] 02/12/21 at 1630, [facility] NaCl 0.9% 2020-04- No 1000mL at 999 Uni vers (NS) bolus 0-31 10-31 mL/hr, ity of infusion 21:30: 21:30 1,000 mL, [place] 1,000 mL 00 :00 IV Medical Infusion, Branch ONCE, 1 dose, On [place] 02/12/21 at 1630, [place] ondansetron 2020-04- No 8mg 8 mg, Slow Univers (ZOFRAN 0-31 10-31 IV Push, ity of (PF)) 21:30: 20:23 ONCE, 1 [place] injection 8 00 :00 dose, On Medi brandy mg [facility] 02/12/21 at 1630, [place] ketorolac 2020-04- No 30mg 30 mg, Unive rs (TORADOL) 0-31 10- Slow IV ity of injection 21:30: 20:23 Push, [place] 30 mg 00 :00 ONCE, 1 Medical dose, On Branch [place] 02/12/21 at 1630, [facility]
Fa culty member approving Restricted medication : ROSALINDA FISHER morpHINE 2020-04- No 4mg 4 mg, Slow Un you injection 4 0-31 10-31 IV Push, ity of mg 21:30: 20:23 ONCE, 1 [place] 00 :00 dose, On Medical [facility] 02/12/21 at 1630, STAT ondansetron 2020-04 Yes [id number] 8mg Take 1 Univers 8 mg tablet 0-31 tablet by ity of 00:00: mouth [place] 00 every 8 Medical (eight) Branch hours as needed for Nausea and Vomiting (N/V). ondansetron 2020-04- No [id number] 8mg Take 1 Univers 8 mg tablet 0-31 12-06 tablet by it y of 00:00: 00:00 mouth [place] 00 :00 every 8 Medical (eight) Branch hours as needed for Nausea and Vomiting (N/V). morpHINE 2020-04- No 4mg 4 mg, Slow Un you injection 4 001-18 IV Push, ity of mg 07:00: 05:56 ONCE, 1 [place] 00 :00 dose, On [facility] Branch 01/18/21 at 0200, STAT famotidine 2020-04 No 20mg 20 mg, Univ ers (PEPCID 0-01-18 Slow IV ity of (PF)) 06:00: 05:08 Push, [place] injection 00 :00 ONCE, 1 Medical 20 mg dose, On Branch [facility] 01/18/21 at 0100, Routine maalox:diph 2020-04 No 15mL 15 mL, Uni vers enhydrAMINE 001-18 Oral, ity of :lidocaine 06:00: 05:08 ONCE, 1 [place] 2 % viscous 00 :00 dose, On Medi brandy 1:1:1 Wed Branch ([facility] 01/18/21 at [facility]) 0100, oral Routine suspension 15 mL dicyclomine 2020-04 No 20mg 20 mg, Uni vers (BENTYL) 001-18 Oral, ity of tablet 20 06:00: 05:08 ONCE, 1 [place] mg 00 :00 dose, On Medical [facility] Branch 01/18/21 at 0100, Routine iopamidol 2020-04 No [id number] 120mL 120 mL, Univers (ISOVUE 001-18 Intravenou ity o f 370-500 mL) 04:45: 03:33 s, ONCE, 1 [place] injection 00 :00 dose, On Medica l 120 mL [facility] Branch 01/17/21 at 2345, Routine morpHINE 2020-04 No 4mg 4 mg, Slow Un you injection 4 001-18 IV Push, ity of mg 03:45: 02:58 ONCE, 1 [place] 00 :00 dose, On Medical [facility] Branch 01/17/21 at 2245, STAT ondansetron 2020-04 No 4mg 4 mg, Slow Univers (ZOFRAN 0-01-18 IV Push, ity of (PF)) 03:45: 02:59 ONCE, 1 [place] injection 4 00 :00 dose, On [facility] brandy mg [facility] Branch 01/17/21 at 2245, [place] NaCl 0.9% 2020-04- No 1000mL at 999 Uni vers (NS) bolus 0-06 10-06 mL/hr, ity of infusion 03:45: 06:13 1,000 mL, [place] 1,000 mL 00 :00 IV Medical Piggyback, Branch ONCE, 1 dose, On Sat01/17/21 at 2245, STAT diazePAM 2 Yes 2mg Take 2 mg Un you mg tablet 9-25 by mouth. ity o f 11:25: [address] Branch erythromyci Yes erythromyc Univers n 5 mg/gram 9-25 in 5 ity of (0.5 %) 11:25: mg/gram [place] ophthalmic 57 (0.5 %) Medica l ointment eye Branch ointment ondansetron Yes ondansetro Univers 4 mg tablet 9-25 n HCl 4 mg it y of 11:25: tablet [address] diazePAM 2 Yes 2mg Take 2 mg Un you mg tablet 9-25 by mouth. ity o f 11:25: [address] erythromyci Yes erythromyc Univers n 5 mg/gram 9-25 in 5 ity of (0.5 %) 11:25: mg/gram [place] ophthalmic 57 (0.5 %) Medica l ointment eye Branch ointment ondansetron Yes ondansetro Univers 4 mg tablet 9-25 n HCl 4 mg it y of 11:25: tablet [address] diazePAM 2 Yes 2mg Take 2 mg Un you mg tablet 9-25 by mouth. ity o f 11:25: [address] Branch erythromyci Yes erythromyc Univers n 5 mg/gram 9-25 in 5 ity of (0.5 %) 11:25: mg/gram [place] ophthalmic 57 (0.5 %) Medica l ointment eye Branch ointment ondansetron Yes ondansetro Univers 4 mg tablet 9-25 n HCl 4 mg it y of 11:25: tablet [address] diazePAM 2 Yes 2mg Take 2 mg Un you mg tablet 9-25 by mouth. ity o f 11:25: [place] [address] Medical Branch erythromyci Yes erythromyc [facility] n 5 mg/gram 9-25 in 5 ity of (0.5 %) 11:25: mg/gram [place] ophthalmic 57 (0.5 %) Medica l ointment eye Branch ointment ondansetron Yes ondansetro Univers 4 mg tablet 9-25 n HCl 4 mg it y of 11:25: tablet [place] [address] Medical Branch diazePAM 2 Yes 2mg Take 2 mg Un you mg tablet 9-25 by mouth. ity o f 11:25: [place] [address] Medical Branch erythromyci Yes erythromyc Univers n 5 mg/gram 9-25 in 5 ity of (0.5 %) 11:25: mg/gram [place] ophthalmic 57 (0.5 %) Medica l ointment eye Branch ointment ondansetron Yes ondansetro Univers 4 mg tablet 9-25 n HCl 4 mg it y of 11:25: tablet [place] [address] Medical Branch diazePAM 2 Yes 2mg Take 2 mg Un you mg tablet 9-25 by mouth. ity o f 11:25: [place] [address] Medical Branch erythromyci Yes erythromyc [facility] n 5 mg/gram 9-25 in 5 ity of (0.5 %) 11:25: mg/gram [place] ophthalmic 57 (0.5 %) Medica l ointment eye Branch ointment ondansetron Yes ondansetro [facility] 4 mg tablet 9-25 n HCl 4 mg it y of 11:25: tablet [place] [address] Medical Branch diazePAM 2 Yes 2mg Take 2 mg Un you mg tablet 9-25 by mouth. ity o f 11:25: [place] [address] Medical Branch erythromyci Yes erythromyc [facility] n 5 mg/gram 9-25 in 5 ity of (0.5 %) 11:25: mg/gram [place] ophthalmic 57 (0.5 %) Medica l ointment eye Branch ointment diazePAM 2 Yes 2mg Take 2 mg Un you mg tablet 9-25 by mouth. ity o f 11:25: [place] [address] Medical Branch erythromyci Yes erythromyc [facility] n 5 mg/gram 9-25 in 5 ity of (0.5 %) 11:25: mg/gram [place] ophthalmic 57 (0.5 %) Medica l ointment eye Branch ointment diazePAM 2 Yes 2mg Take 2 mg Un you mg tablet 9-25 by mouth. ity o f 11:25: [address] Branch erythromyci Yes erythromyc [facility] n 5 mg/gram 9-25 in 5 ity of (0.5 %) 11:25: mg/gram [place] ophthalmic 57 (0.5 %) Medica l ointment eye Branch ointment diazePAM 2 Yes 2mg Take 2 mg Un you mg tablet 9-25 by mouth. ity o f 11:25: [address] erythromyci Yes erythromyc [facility] n 5 mg/gram 9-25 in 5 ity of (0.5 %) 11:25: mg/gram [place] ophthalmic 57 (0.5 %) Medica l ointment eye Branch ointment diazePAM 2 Yes 2mg Take 2 mg Un you mg tablet 9-25 by mouth. ity o f 11:25: [address] erythromyci Yes erythromyc Univers n 5 mg/gram 9-25 in 5 ity of (0.5 %) 11:25: mg/gram [place] ophthalmic 57 (0.5 %) Medica l ointment eye Branch ointment albuterol Yes [id number] 2{puff} Inhale 2 Univers 90 9-25 Puffs ity of mcg/actuati 00:00: every 6 [place] on inhaler 00 (six) Medical hours as Branch needed for Wheezing or Shortness of Breath. albuterol Yes [id number] 2{puff} Inhale 2 Univers 90 9-25 Puffs ity of mcg/actuati 00:00: every 6 [place] on inhaler 00 (six) Medical hours as Branch needed for Wheezing or Shortness of Breath. albuterol Yes [id number] 2{puff} Inhale 2 Univers 90 9-25 Puffs ity of mcg/actuati 00:00: every 6 [place] on inhaler 00 (six) Medical hours as Branch needed for Wheezing or Shortness of Breath. albuterol Yes [id number] 2{puff} Inhale 2 Univers 90 9-25 Puffs ity of mcg/actuati 00:00: every 6 [place] on inhaler 00 (six) Medical hours as Branch needed for Wheezing or Shortness of Breath. albuterol Yes [id number] 2{puff} Inhale 2 [facility] 90 9-25 Puffs ity of mcg/actuati 00:00: every 6 [place] on inhaler 00 (six) Medical hours as Branch needed for Wheezing or Shortness of Breath. albuterol Yes [id number] 2{puff} Inhale 2 [facility] 90 9-25 Puffs ity of mcg/actuati 00:00: every 6 [place] on inhaler 00 (six) Medical hours as Branch needed for Wheezing or Shortness of Breath. albuterol Yes [id number] 2{puff} Inhale 2 [facility] 90 9-25 Puffs ity of mcg/actuati 00:00: every 6 [place] on inhaler 00 (six) Medical hours as Branch needed for Wheezing or Shortness of Breath. albuterol Yes [id number] 2{puff} Inhale 2 [facility] 90 9-25 Puffs ity of mcg/actuati 00:00: every 6 [place] on inhaler 00 (six) Medical hours as Branch needed for Wheezing or Shortness of Breath. albuterol Yes [id number] 2{puff} Inhale 2 Univers 90 9-25 Puffs ity of mcg/actuati 00:00: every 6 [place] on inhaler 00 (six) Medical hours as Branch needed for Wheezing or Shortness of Breath. albuterol Yes [id number] 2{puff} Inhale 2 [facility] 90 9-25 Puffs ity of mcg/actuati 00:00: every 6 [place] on inhaler 00 (six) Medical hours as Branch needed for Wheezing or Shortness of Breath. albuterol Yes [id number] 2{puff} Inhale 2 [facility] 90 9-25 Puffs ity of mcg/actuati 00:00: every 6 [place] on inhaler 00 (six) Medical hours as Branch needed for Wheezing or Shortness of Breath. albuterol Yes [id number] 2{puff} Inhale 2 [facility] 90 9-25 Puffs ity of mcg/actuati 00:00: every 6 [place] on inhaler 00 (six) Medical hours as Branch needed for Wheezing or Shortness of Breath. albuterol Yes [id number] 2{puff} Inhale 2 [facility] 90 9-25 Puffs ity of mcg/actuati 00:00: every 6 [place] on inhaler 00 (six) Medical hours as Branch needed for Wheezing or Shortness of Breath. albuterol Yes [id number] 2{puff} Inhale 2 [facility] 90 9-25 Puffs ity of mcg/actuati 00:00: every 6 [place] on inhaler 00 (six) Medical hours as Branch needed for Wheezing or Shortness of Breath. albuterol Yes [id number] 2{puff} Inhale 2 [facility] 90 9-25 Puffs ity of mcg/actuati 00:00: every 6 [place] on inhaler 00 (six) Medical hours as Branch needed for Wheezing or Shortness of Breath. albuterol Yes [id number] 2{puff} Inhale 2 [facility] 90 9-25 Puffs ity of mcg/actuati 00:00: every 6 [place] on inhaler 00 (six) Medical hours as Branch needed for Wheezing or Shortness of Breath. albuterol Yes [id number] 2{puff} Inhale 2 [facility] 90 9-25 Puffs ity of mcg/actuati 00:00: every 6 [place] on inhaler 00 (six) Medical hours as Branch needed for Wheezing or Shortness of Breath. albuterol Yes [id number] 2{puff} Inhale 2 [facility] 90 9-25 Puffs ity of mcg/actuati 00:00: every 6 [place] on inhaler 00 (six) Medical hours as Branch needed for Wheezing or Shortness of Breath. albuterol Yes [id number] 2{puff} Inhale 2 [facility] 90 9-25 Puffs ity of mcg/actuati 00:00: every 6 [place] on inhaler 00 (six) Medical hours as Branch needed for Wheezing or Shortness of Breath. albuterol Yes [id number] 2{puff} Inhale 2 [facility] 90 9-25 Puffs ity of mcg/actuati 00:00: every 6 [place] on inhaler 00 (six) Medical hours as Branch needed for Wheezing or Shortness of Breath. albuterol Yes [id number] 2{puff} Inhale 2 Univers 90 9-25 Puffs ity of mcg/actuati 00:00: every 6 [place] on inhaler 00 (six) Medical hours as Branch needed for Wheezing or Shortness of Breath. albuterol Yes [id number] 2{puff} Inhale 2 [facility] 90 9-25 Puffs ity of mcg/actuati 00:00: every 6 [place] as on inhaler 00 (six) Medical hours as Branch needed for Wheezing or Shortness of Breath. albuterol Yes [id number] 2{puff} Inhale 2 [facility] 90 9-25 Puffs ity of mcg/actuati 00:00: every 6 [place] on inhaler 00 (six) Medical hours as Branch needed for Wheezing or Shortness of Breath. albuterol 2021- No [id number] 2{puff} Inhale 2 Univers 90 9-25 05-20 Puffs ity of mcg/actuati 00:00: 00:00 every 6 [place] on inhaler 00 :00 (six) Medical hours as Branch needed for Wheezing or Shortness of Breath. promethazin 2020- No [id number] 5mL Take 5 mL Univers e-dextromet 9-25 10-03 by mouth 4 i ty of horphan 00:00: 04:59 (four) [place] 6.25-15 00 :00 times Medical mg/5 mL daily as Branch syrup needed for Cough or Cold symptoms for up to 7 days. promethazin 2020- No [id number] 5mL Take 5 mL Univers e-dextromet 9-25 10-03 by mouth 4 i ty of horphan 00:00: 04:59 (four) [place] 6.25-15 00 :00 times Medical mg/5 mL daily as Branch syrup needed for Cough or Cold symptoms for up to 7 days. promethazin 2020- No [id number] 5mL Take 5 mL Univers e-dextromet 9-25 10-03 by mouth 4 i ty of horphan 00:00: 04:59 (four) [place] 6.25-15 00 :00 times Medical mg/5 mL daily as Branch syrup needed for Cough or Cold symptoms for up to 7 days. tiZANidine 0 Yes Univers 2 mg tablet 9-23 ity of 00:00: [place] [facility] tiZANidine 2020-0 Yes Univers 2 mg tablet 9-23 ity of 00:00: [place] [facility] tiZANidine 2020-0 Yes [facility] 2 mg tablet 9-23 ity of 00:00: [place] [facility] tiZANidine 2020-0 Yes Univers 2 mg tablet 9-23 ity of 00:00: [place] [facility] tiZANidine 2020-0 Yes [facility] 2 mg tablet 9-23 ity of 00:00: [place] [facility] tiZANidine 2020-0 Yes [facility] 2 mg tablet 9-23 ity of 00:00: [place] [facility] tiZANidine 2020-0 Yes [facility] 2 mg tablet 9-23 ity of 00:00: [place] [facility] tiZANidine 2020-0 Yes [facility] 2 mg tablet 9-23 ity of 00:00: [place] [facility] tiZANidine 2020-0 Yes [facility] 2 mg tablet 9-23 ity of 00:00: [place] [facility] tiZANidine 2020-0 Yes [facility] 2 mg tablet 9-23 ity of 00:00: [place] [facility] tiZANidine 2020-0 Yes [facility] 2 mg tablet 9-23 ity of 00:00: [place] [facility] tiZANidine 2020-0 Yes [facility] 2 mg tablet 9-23 ity of 00:00: [place] [facility] tiZANidine 2020-0 Yes [facility] 2 mg tablet 9-23 ity of 00:00: [place] [facility] tiZANidine 2020-0 Yes [facility] 2 mg tablet 9-23 ity of 00:00: [place] [facility] tiZANidine 2020-0 Yes [facility] 2 mg tablet 9-23 ity of 00:00: [place] [facility] tiZANidine 2020-0 Yes [facility] 2 mg tablet 9-23 ity of 00:00: [place] [facility] tiZANidine 2020-0 Yes [facility] 2 mg tablet 9-23 ity of 00:00: [place] [facility] tiZANidine 2021-0 Yes Univers 2 mg tablet 9- ity of 00:00: [place] [facility] tiZANidine 1-0 Yes Univers 2 mg tablet - ity of 00:00: [place] [facility] tiZANidine 2021-0 Yes Univers 2 mg tablet - ity of 00:00: [place] [facility] tiZANidine 1-0 Yes Univers 2 mg tablet - ity of 00:00: [place] [facility] tiZANidine 2021-0 Yes Univers 2 mg tablet - ity of 00:00: [place] [facility] tiZANidine 2021-0 Yes Univers 2 mg tablet - ity of 00:00: [place] [facility] tiZANidine 2021-0 Yes Univers 2 mg tablet - ity of 00:00: [place] [facility] tiZANidine 2021-0 Yes Univers 2 mg tablet - ity of 00:00: [place] [facility] tiZANidine 2021-0 Yes 4mg Take 4 mg Un you 2 mg tablet 9-23 by mouth 2 it y of 00:00: (two) [place] 00 times Medical daily. Branch tiZANidine 1-0 Yes 4mg Take 4 mg Un you 2 mg tablet 9-23 by mouth 2 it y of 00:00: (two) [place] 00 times Medical daily. Branch tiZANidine 2021-0 Yes 4mg Take 4 mg Un you 2 mg tablet 9-23 by mouth 2 it y of 00:00: (two) [place] 00 times Medical daily. Branch tiZANidine 1-0 Yes 4mg Take 4 mg Un you 2 mg tablet 9-23 by mouth 2 it y of 00:00: (two) [place] 00 times Medical daily. Branch tiZANidine 2021-0 Yes 4mg Take 4 mg Un you 2 mg tablet 9-23 by mouth 2 it y of 00:00: (two) [place] 00 times Medical daily. Branch tiZANidine 2021-0 Yes 4mg Take 4 mg Un you 2 mg tablet 9-23 by mouth 2 it y of 00:00: (two) [place] 00 times Medical daily. Branch tiZANidine 2021-0 Yes 4mg Take 4 mg Un you 2 mg tablet 9-23 by mouth 2 it y of 00:00: (two) [place] 00 times Medical daily. Branch tiZANidine Yes 4mg Take 4 mg Un you 2 mg tablet 01-05 by mouth 2 it y of 00:00: (two) [place] 00 times Medical daily. Branch ketorolac No 30mg 30 mg, Unive rs (TORADOL) [...] as mg 00 :00 dose, On Medical Sat Branch 12/30/20 at 1800, Routine FENTanyl PF 2020- No 50ug 50 mcg, Un you (SUBLIMAZE 12-30 Slow IV ity o f (PF)) 23:00: 22:03 Push, [place] injection 00 :00 ONCE, 1 Medical 50 mcg dose, On Branch Sat12/30/20 at 1800, Routine ketorolac No 30mg 30 mg, Unive rs (TORADOL) [...] as mg 00 :00 dose, On Medical Sat [place] 12/30/20 at 1800, Routine FENTanyl PF 2020- No 50ug 50 mcg, Un you (SUBLIMAZE 12-30 Slow IV ity o f (PF)) 23:00: 22:03 Push, [place] injection 00 :00 ONCE, 1 Medical 50 mcg dose, On Branch 12/30/20 at 1800, Routine maalox:diph 2020-0 2020- No 15mL 15 mL, Uni vers enhydrAMINE 12-30 Oral, ity of :lidocaine 21:45: 20:37 ONCE, 1 [place] as 2 % viscous 00 :00 dose, On [facility] 1:1:1 Fri Branch (FIRST-UT 12/30/20 at [facility]) 1645, oral Routine suspension 15 mL famotidine 0 2020- No 20mg 20 mg, [facility] ers (PEPCID 12-30 Slow IV ity of (PF)) 21:45: 20:37 Push, [place] injection 00 :00 ONCE, 1 Medical 20 mg dose, On Branch Sat12/30/20 at 1645, Routine maalox:diph 0 2020- No 15mL 15 mL, Uni vers enhydrAMINE 12-30 Oral, ity of :lidocaine 21:45: 20:37 ONCE, 1 [place] as 2 % viscous 00 :00 dose, On [facility] brandy 1:1:1 Fri Branch (FIRST-MOUT 12/30/20 at [facility]) 1645, oral Routine suspension 15 mL famotidine 2020- No 20mg 20 mg, [facility] ers (PEPCID 12-30 Slow IV ity of (PF)) 21:45: 20:37 Push, [place] injection 00 :00 ONCE, 1 Medical 20 mg dose, On Branch 12/30/20 at 1645, Routine iopamidol 2020-0 2020- No [id number] 80mL 80 mL, Univers (ISOVUE 12-30 Intravenou ity o f 370-500 mL) 20:00: 18:48 s, ONCE, 1 [place] injection 00 :00 dose, On Medica l 80 mL Fri Branch 12/30/20 at 1500, Routine iopamidol 2020-0 2020- No [id number] 80mL 80 mL, Univers (ISOVUE 12-30 Intravenou ity o f 370-500 mL) 20:00: 18:48 s, ONCE, 1 [place] injection 00 :00 dose, On Medica l 80 mL Fri Branch 12/30/20 at 1500, Routine morpHINE 0 2020- No 4mg 4 mg, Slow Un you injection 4 12-30 IV Push, ity of mg 19:30: 18:35 ONCE, 1 [place] 00 :00 dose, On Medical [facility] 12/30/20 at 1430, STAT ondansetron 2020- No 4mg 4 mg, Slow Univers (ZOFRAN 12-30 IV Push, ity of (PF)) 19:30: 18:35 ONCE, 1 [place] injection 4 00 :00 dose, On Medi brandy mg [facility] 12/30/20 at 1430, LOUIS NaCl 0.9% 2020- No 1000mL at 999 Uni vers (NS) bolus 12-30 mL/hr, ity of infusion 19:30: 20:38 1,000 mL, [place] as 1,000 mL 00 :00 IV Medical Piggyback, [place] ONCE, 1 dose, On Sat12/30/20 at 1430, STAT morpHINE 2020- No 4mg 4 mg, Slow Un you injection 4 12-30 IV Push, ity of mg 19:30: 18:35 ONCE, 1 [place] 00 :00 dose, On Medical [facility] 12/30/20 at 1430, STAT ondansetron 2020- No 4mg 4 mg, Slow Univers (ZOFRAN 12-30 IV Push, ity of (PF)) 19:30: 18:35 ONCE, 1 [place] injection 4 00 :00 dose, On Medi brandy mg [facility] 12/30/20 at 1430, LOUIS NaCl 0.9% 2020- No 1000mL at 999 Uni vers (NS) bolus 12-30 mL/hr, ity of infusion 19:30: 20:38 1,000 mL, [place] as 1,000 mL 00 :00 IV Medical Piggyback, Branch ONCE, 1 dose, On Sat12/30/20 at 1430, STAT traZODone 0 Yes 100mg Take 100 Uni vers 100 mg 9-17 mg by ity of tablet 10:15: mouth at [place] 06 bedtime. [facility] Branch traZODone 0 Yes 100mg Take 100 Uni vers 100 mg 9-17 mg by ity of tablet 10:15: mouth at [place] [address] bedtime. Medical Branch traZODone 2020-0 Yes 100mg Take 100 Uni vers 100 mg 9-17 mg by ity of tablet 10:15: mouth at [place] [address] bedtime. Medical Branch traZODone 2020-0 Yes 100mg Take 100 Uni vers 100 mg 9-17 mg by ity of tablet 10:15: mouth at [place] [address] bedtime. Medical Branch traZODone 2020-0 Yes 100mg Take 100 Uni vers 100 mg 9-17 mg by ity of tablet 10:15: mouth at [place] [address] bedtime. Medical Branch traZODone 2020-0 Yes 100mg Take 100 Uni vers 100 mg 9-17 mg by ity of tablet 10:15: mouth at [place] [address] bedtime. Medical Branch traZODone 2020-0 Yes 100mg Take 100 Uni vers 100 mg 9-17 mg by ity of tablet 10:15: mouth at [place] [address] bedtime. Medical Branch traZODone 2020-0 Yes 100mg Take 100 Uni vers 100 mg 9-17 mg by ity of tablet 10:15: mouth at [place] [address] bedtime. Medical Branch traZODone 2020-0 Yes 100mg Take 100 Uni vers 100 mg 9-17 mg by ity of tablet 10:15: mouth at [place] [address] bedtime. Medical Branch traZODone 2020-0 Yes 100mg Take 100 Uni vers 100 mg 9-17 mg by ity of tablet 10:15: mouth at [place] [address] bedtime. Medical Branch traZODone 2020-0 Yes 100mg Take 100 Uni vers 100 mg 9-17 mg by ity of tablet 10:15: mouth at [place] [address] bedtime. Medical Branch traZODone 2020-0 Yes 100mg Take 100 Uni vers 100 mg 9-17 mg by ity of tablet 10:15: mouth at [place] [address] bedtime. Medical Branch traZODone 2020-0 Yes 100mg Take 100 Uni vers 100 mg 9-17 mg by ity of tablet 10:15: mouth at [place] [address] bedtime. Medical Branch traZODone 1-0 Yes 100mg Take 100 Uni vers 100 mg 9-17 mg by ity of tablet 10:15: mouth at [place] [address] bedtime. Medical Branch traZODone 2020-0 Yes 100mg Take 100 Uni vers 100 mg 9-17 mg by ity of tablet 10:15: mouth at [place] 06 bedtime. Medical Branch traZODone 2020-0 Yes 100mg Take 100 Uni vers 100 mg 9-17 mg by ity of tablet 10:15: mouth at [place] 06 bedtime. Medical Branch dicyclomine 2020-0 Yes [id number] 20mg Take 1 Univers 20 mg 9-17 tablet by ity of tablet 00:00: mouth [place] 00 every 6 Medical (six) Branch hours as needed for Abdominal pain. dicyclomine 2020-0 Yes [id number] 20mg Take 1 Univers 20 mg 9-17 tablet by ity of tablet 00:00: mouth [place] 00 every 6 Medical (six) Branch hours as needed for Abdominal pain. dicyclomine 2020-0 Yes [id number] 20mg Take 1 Univers 20 mg 9-17 tablet by ity of tablet 00:00: mouth [place] 00 every 6 Medical (six) Branch hours as needed for Abdominal pain. dicyclomine 2020-0 Yes [id number] 20mg Take 1 Univers 20 mg 9-17 tablet by ity of tablet 00:00: mouth [place] 00 every 6 Medical (six) Branch hours as needed for Abdominal pain. dicyclomine 2020-0 Yes [id number] 20mg Take 1 Univers 20 mg 9-17 tablet by ity of tablet 00:00: mouth [place] 00 every 6 Medical (six) Branch hours as needed for Abdominal pain. dicyclomine 2020-0 Yes [id number] 20mg Take 1 Univers 20 mg 9-17 tablet by ity of tablet 00:00: mouth [place] 00 every 6 Medical (six) Branch hours as needed for Abdominal pain. dicyclomine 2020-0 Yes [id number] 20mg Take 1 Univers 20 mg 9-17 tablet by ity of tablet 00:00: mouth [place] 00 every 6 Medical (six) Branch hours as needed for Abdominal pain. dicyclomine 2020-0 Yes [id number] 20mg Take 1 Univers 20 mg 9-17 tablet by ity of tablet 00:00: mouth [place] 00 every 6 Medical (six) Branch hours as needed for Abdominal pain. dicyclomine 2020-0 Yes [id number] 20mg Take 1 Univers 20 mg 9-17 tablet by ity of tablet 00:00: mouth [place] 00 every 6 Medical (six) Branch hours as needed for Abdominal pain. dicyclomine 2020-0 Yes [id number] 20mg Take 1 Univers 20 mg 9-17 tablet by ity of tablet 00:00: mouth [place] 00 every 6 Medical (six) Branch hours as needed for Abdominal pain. dicyclomine 2020-0 Yes [id number] 20mg Take 1 Univers 20 mg 9-17 tablet by ity of tablet 00:00: mouth [place] 00 every 6 Medical (six) Branch hours as needed for Abdominal pain. dicyclomine 2020-0 Yes [id number] 20mg Take 1 Univers 20 mg 9-17 tablet by ity of tablet 00:00: mouth [place] 00 every 6 Medical (six) Branch hours as needed for Abdominal pain. dicyclomine 2020-0 Yes [id number] 20mg Take 1 Univers 20 mg 9-17 tablet by ity of tablet 00:00: mouth [place] 00 every 6 Medical (six) Branch hours as needed for Abdominal pain. dicyclomine 2020-0 Yes [id number] 20mg Take 1 Univers 20 mg 9-17 tablet by ity of tablet 00:00: mouth [place] 00 every 6 Medical (six) Branch hours as needed for Abdominal pain. dicyclomine 2020-0 Yes [id number] 20mg Take 1 Univers 20 mg 9-17 tablet by ity of tablet 00:00: mouth [place] 00 every 6 Medical (six) Branch hours as needed for Abdominal pain. dicyclomine 2020-0 Yes [id number] 20mg Take 1 Univers 20 mg 9-17 tablet by ity of tablet 00:00: mouth [place] 00 every 6 Medical (six) Branch hours as needed for Abdominal pain. dicyclomine 2020-0 Yes [id number] 20mg Take 1 Univers 20 mg 9-17 tablet by ity of tablet 00:00: mouth [place] 00 every 6 Medical (six) Branch hours as needed for Abdominal pain. dicyclomine 1-0 2022- No [id number] 20mg Take 1 Univers 20 mg 9-17 [...] 50 (two) Medical times Branch daily. cephALEXin 2021-0 2020- No [id number] 500mg Take 1 Univers 500 mg 12-16 capsule by ity of capsule 00:00: 04:59 mouth 4 [place] 00 :00 ( daily for 7 days. cephALEXin 2020-0 2020- No [id number] 500mg Take 1 Univers 500 mg 12-16 capsule by ity of capsule 00:00: 04:59 mouth 4 [place] 00 :00 ( daily for 7 days. hydrOXYzine 2020-0 Yes Univer s 25 mg 9- ity of tablet 00:00: [place] [facility] SERTraline 2020-0 Yes Univers 25 mg 9- ity of tablet 00:00: [place] [facility] hydrOXYzine 2020-0 Yes Univer s 25 mg 9- ity of tablet 00:00: [address] SERTraline 2020-0 Yes Univers 25 mg 9- ity of tablet 00:00: [address] hydrOXYzine 2020-0 Yes Univer s 25 mg 9- ity of tablet 00:00: [address] SERTraline 2020-0 Yes Univers 25 mg 9- ity of tablet 00:00: [address] hydrOXYzine 2020-0 Yes Univer s 25 mg 9- ity of tablet 00:00: [place] [facility] SERTraline 2020-0 Yes Univers 25 mg 9- ity of tablet 00:00: [address] hydrOXYzine 2020-0 Yes Univer s 25 mg 9- ity of tablet 00:00: [address] SERTraline 2020-0 Yes Univers 25 mg 9- ity of tablet 00:00: [address] hydrOXYzine 2020-0 Yes Univer s 25 mg 9- ity of tablet 00:00: [address] SERTraline 2020-0 Yes Univers 25 mg 9-01 ity of tablet 00:00: [place] [facility] hydrOXYzine 2020-0 Yes Univer s 25 mg 9- ity of tablet 00:00: [address] SERTraline 2020-0 Yes Univers 25 mg 9- ity of tablet 00:00: [address] hydrOXYzine 2020-0 Yes Univer s 25 mg 9- ity of tablet 00:00: [place] [facility] SERTraline 2020-0 Yes Univers 25 mg 9- ity of tablet 00:00: [place] [facility] hydrOXYzine 2020-0 Yes Univer s 25 mg 9- ity of tablet 00:00: [place] [facility] SERTraline 2020-0 Yes Univers 25 mg 9- ity of tablet 00:00: [place] [facility] hydrOXYzine 2020-0 Yes Univer s 25 mg 9- ity of tablet 00:00: [place] [facility] SERTraline 2020-0 Yes Univers 25 mg 9- ity of tablet 00:00: [place] [facility] hydrOXYzine 2020-0 Yes Univer s 25 mg 9- ity of tablet 00:00: [place] [facility] SERTraline 2020-0 Yes Univers 25 mg 9- ity of tablet 00:00: [place] [facility] Branch hydrOXYzine 2020-0 Yes Univer s 25 mg 9- ity of tablet 00:00: [place] [facility] SERTraline 2020-0 Yes Univers 25 mg 9- ity of tablet 00:00: [place] [facility] hydrOXYzine 2020-0 Yes Univer s 25 mg 9- ity of tablet 00:00: [place] [facility] Branch SERTraline 2020-0 Yes Univers 25 mg 9- ity of tablet 00:00: [place] [facility] Branch hydrOXYzine 2020-0 Yes Univer s 25 mg 9- ity of tablet 00:00: [place] [facility] SERTraline 2020-0 Yes Univers 25 mg 9- ity of tablet 00:00: [place] [facility] hydrOXYzine 2020-0 Yes Univer s 25 mg 9- ity of tablet 00:00: [place] [facility] SERTraline 2020-0 Yes Univers 25 mg 9- ity of tablet 00:00: [place] [facility] SERTraline 2020-0 Yes Univers 25 mg 9- ity of tablet 00:00: [place] [facility] SERTraline 2020-0 Yes Univers 25 mg 9- ity of tablet 00:00: [place] [facility] SERTraline 2020-0 Yes Univers 25 mg 9- ity of tablet 00:00: Medical Branch SERTraline Yes Univers 25 mg 12-14 ity of tablet 00:00: Medical Branch SERTraline Yes Univers 25 mg 12-14 ity of tablet 00:00: [facility] Branch SERTraline Yes Univers 25 mg 12-14 ity of tablet 00:00: Medical Branch SERTraline Yes Univers 25 mg 12-14 ity of tablet 00:00: [facility] Branch SERTraline Yes Univers 25 mg 12-14 ity of tablet 00:00: [facility] Branch SERTraline 2021- No Univer s 25 mg 12-14 05-20 ity of tablet 00:00: 00:00 [place] 00 : [facility] Branch hydrOXYzine 2021- No Unive rs 25 mg 12-14 0206 ity of tablet 00:00: 00:00 [place] 00 : [facility] Branch morpHINE 2020- No 4mg 4 mg, Slow Un you injection 4 12-06 IV Push, ity of mg 00:00: 23:00 ONCE, 1 [place] 00 :00 dose, [facility] Medical 12/05/20 at Branch 1900, STAT dicyclomine 2020- No 20mg 20 mg, Uni vers (BENTYL) 12-06 Intramuscu ity of injection 00:00: 23:00 [place], ONCE, [place] 20 mg 00 :00 1 dose, [facility] [facility] at 1900, Routine iopamidol 2020- No [id number] 120mL 120 mL, [facility] (ISOVUE 12-05 Intravenou ity o f 370-500 mL) 22:30: 21:20 s, ONCE, 1 [place] injection 00 :00 dose, [facility] Medic al 120 mL 12/05/20 at Branch 1730, Routine famotidine 2020- No 20mg 20 mg, Univ ers (PEPCID 12-05 Slow IV ity of (PF)) 22:15: 22:14 Push, [place] injection 00 :00 ONCE, 1 Medical 20 mg dose, [facility] 12/05/20 at 1715, [facility] maalox:diph 2020- No 15mL 15 mL, Uni vers enhydrAMINE 12-05 Oral, ity of :lidocaine 22:15: 22:13 ONCE, 1 [place] 2 % viscous 00 :00 dose, Mon Med ical 1:1:1 12/05/20 at [place] (FIRST-MOUT 1715, HWASH BLM) Routine oral suspension 15 mL NaCl 0.9% 2020- No 1000mL at 999 Uni vers (NS) bolus 12-05 mL/hr, ity of infusion 22:00: 23:51 1,000 mL, [place] as 1,000 mL 00 :00 IV Medical Piggyback, [place] ONCE, 1 dose, [facility] 12/05/20 at 1700, STAT ondansetron 2020- No 4mg 4 mg, Slow [facility] (ZOFRAN 12-05 IV Push, ity of (PF)) 22:00: 22:13 ONCE, 1 [place] injection 4 00 :00 dose, Mon Med ical mg 12/05/20 at [place] 1700, [place] morpHINE 2020- No 4mg 4 mg, Slow Un you injection 4 12-05 IV Push, ity of mg 22:00: 22:15 ONCE, 1 [place] 00 :00 dose, [facility] Medical 12/05/20 at [place] 1700, STAT ondansetron 0 Yes [id number] 4mg Take 1 [facility] 4 mg 8-23 tablet by ity of disintegrat 00:00: mouth [place] ing tablet 00 every 8 Medica l (eight) Branch hours as needed for Nausea and Vomiting (N/V). ondansetron 2020-0 Yes [id number] 4mg Take 1 [facility] 4 mg 8-23 tablet by ity of disintegrat 00:00: mouth [place] ing tablet 00 every 8 Medica l (eight) Branch hours as needed for Nausea and Vomiting (N/V). ondansetron 2020-0 Yes [id number] 4mg Take 1 [facility] 4 mg 8-23 tablet by ity of disintegrat 00:00: mouth [place] ing tablet 00 every 8 Medica l (eight) Branch hours as needed for Nausea and Vomiting (N/V). ondansetron 2020-0 Yes [id number] 4mg Take 1 [facility] 4 mg 8-23 tablet by ity of disintegrat 00:00: mouth [place] ing tablet 00 every 8 Medica l (eight) Branch hours as needed for Nausea and Vomiting (N/V). ondansetron 2020-0 Yes [id number] 4mg Take 1 [facility] 4 mg 8-23 tablet by ity of disintegrat 00:00: mouth [place] ing tablet 00 every 8 Medica l (eight) Branch hours as needed for Nausea and Vomiting (N/V). ondansetron 2020-0 Yes [id number] 4mg Take 1 [facility] 4 mg 8-23 tablet by ity of disintegrat 00:00: mouth [place] ing tablet 00 every 8 Medica l (eight) Branch hours as needed for Nausea and Vomiting (N/V). ondansetron 0 Yes [id number] 4mg Take 1 [facility] 4 mg 8-23 tablet by ity of disintegrat 00:00: mouth [place] ing tablet 00 every 8 Medica l (eight) Branch hours as needed for Nausea and Vomiting (N/V). ondansetron 0 Yes [id number] 4mg Take 1 [facility] 4 mg 8-23 tablet by ity of disintegrat 00:00: mouth [place] ing tablet 00 every 8 Medica l (eight) Branch hours as needed for Nausea and Vomiting (N/V). ondansetron 0 Yes [id number] 4mg Take 1 [facility] 4 mg 8-23 tablet by ity of disintegrat 00:00: mouth [place] ing tablet 00 every 8 Medica l (eight) Branch hours as needed for Nausea and Vomiting (N/V). ondansetron 0 Yes [id number] 4mg Take 1 [facility] 4 mg 8-23 tablet by ity of disintegrat 00:00: mouth [place] ing tablet 00 every 8 Medica l (eight) Branch hours as needed for Nausea and Vomiting (N/V). ondansetron 2020-0 Yes [id number] 4mg Take 1 [facility] 4 mg 8-23 tablet by ity of disintegrat 00:00: mouth [place] ing tablet 00 every 8 Medica l (eight) Branch hours as needed for Nausea and Vomiting (N/V). ondansetron 2020-0 Yes [id number] 4mg Take 1 [facility] 4 mg 8-23 tablet by ity of disintegrat 00:00: mouth [place] ing tablet 00 every 8 Medica l (eight) Branch hours as needed for Nausea and Vomiting (N/V). ondansetron 2020-0 Yes [id number] 4mg Take 1 [facility] 4 mg 8-23 tablet by ity of disintegrat 00:00: mouth [place] ing tablet 00 every 8 Medica l (eight) Branch hours as needed for Nausea and Vomiting (N/V). ondansetron 2020-0 Yes [id number] 4mg Take 1 [facility] 4 mg 8-23 tablet by ity of disintegrat 00:00: mouth [place] ing tablet 00 every 8 Medica l (eight) Branch hours as needed for Nausea and Vomiting (N/V). ondansetron 2020-0 Yes [id number] 4mg Take 1 [facility] 4 mg 8-23 tablet by ity of disintegrat 00:00: mouth [place] ing tablet 00 every 8 Medica l (eight) Branch hours as needed for Nausea and Vomiting (N/V). ondansetron 2020-0 Yes [id number] 4mg Take 1 [facility] 4 mg 8-23 tablet by ity of disintegrat 00:00: mouth [place] ing tablet 00 every 8 Medica l (eight) Branch hours as needed for Nausea and Vomiting (N/V). ondansetron 2020-0 Yes [id number] 4mg Take 1 [facility] 4 mg 8-23 tablet by ity of disintegrat 00:00: mouth [place] ing tablet 00 every 8 Medica l (eight) Branch hours as needed for Nausea and Vomiting (N/V). ondansetron 2020-0 Yes [id number] 4mg Take 1 [facility] 4 mg 8-23 tablet by ity of disintegrat 00:00: mouth [place] ing tablet 00 every 8 Medica l (eight) Branch hours as needed for Nausea and Vomiting (N/V). ondansetron 2020-0 Yes [id number] 4mg Take 1 [facility] 4 mg 8-23 tablet by ity of disintegrat 00:00: mouth [place] ing tablet 00 every 8 Medica l (eight) Branch hours as needed for Nausea and Vomiting (N/V). ondansetron 2020-0 Yes [id number] 4mg Take 1 [facility] 4 mg 8-23 tablet by ity of disintegrat 00:00: mouth [place] ing tablet 00 every 8 Medica l (eight) Branch hours as needed for Nausea and Vomiting (N/V). ondansetron Yes [id number] 4mg Take 1 [facility] 4 mg 8-23 tablet by ity of disintegrat 00:00: mouth [place] ing tablet 00 every 8 Medica l (eight) Branch hours as needed for Nausea and Vomiting (N/V). ondansetron Yes [id number] 4mg Take 1 [facility] 4 mg 8-23 tablet by ity of disintegrat 00:00: mouth [place] ing tablet 00 every 8 Medica l (eight) Branch hours as needed for Nausea and Vomiting (N/V). ondansetron Yes [id number] 4mg Take 1 [facility] 4 mg 8-23 tablet by ity of disintegrat 00:00: mouth [place] ing tablet 00 every 8 Medica l (eight) Branch hours as needed for Nausea and Vomiting (N/V). ondansetron Yes [id number] 4mg Take 1 [facility] 4 mg 8-23 tablet by ity of disintegrat 00:00: mouth [place] ing tablet 00 every 8 Medica l (eight) Branch hours as needed for Nausea and Vomiting (N/V). ondansetron 2021- No [id number] 4mg Take 1 [facility] 4 mg 8-23 02-06 tablet by ity of disintegrat 00:00: 00:00 mouth [place] tablet 00 :00 every 8 Medica l (eight) Branch hours as needed for Nausea and Vomiting (N/V). dicyclomine 2020- No [id number] 20mg Take 1 [facility] 20 mg 8-23 08-31 tablet by ity of tablet 00:00: 04:59 mouth 4 [place] 00 :00 (four) Medical times Branch daily for 7 days. fenofibrate Yes 134mg 134 mg, Un you micronized - Oral, ity of (LOFIBRA) 14:00: DAILY, [place] capsule 134 00 First dose Me dical mg on [place] Branch 10/13/20 at 0900, Until Discontinu ed, Routine traZODone Yes 100mg Take 100 Uni vers 100 mg 7-01 mg by ity of tablet 01:44: mouth at [place] 06 bedtime. Medical Branch losartan 2021-0 Yes 100mg Take 100 Univ ers 100 mg 7-01 mg by ity of tablet 01:44: mouth [place] 06 daily. Medical Branch gabapentin 0 Yes 300mg Take 300 Un you 300 mg 7-01 mg by ity of capsule 01:44: mouth 2 [place] 06 (two) Medical times Branch daily. traZODone 0 Yes 100mg Take 100 Uni vers 100 mg 7-01 mg by ity of tablet 01:44: mouth at [place] 06 bedtime. Medical Branch losartan 0 Yes 100mg Take 100 Univ ers 100 mg 7-01 mg by ity of tablet 01:44: mouth [place] 06 daily. Medical Branch gabapentin Yes 300mg Take 300 Un you 300 mg 7-01 mg by ity of capsule 01:44: mouth 2 [place] (two) Medical times [place] daily. HYDROcodone Yes 1{tbl} 1 tablet, Univers [...] ONCE, 1 [place] 00 :00 dose, Wed Medical 10/12/20 at Branch 1245, Routine lipase-prot [...] [place] mg 00 First dose Medical on Sat10/12/20 at 0900, Until Discontinu ed, Routine ursodioL [...] First dose [place] mg 00 on 10/11/20 at Branch 2200, Until Discontinu ed, Routine gabapentin Yes 300mg 300 mg, Uni vers (NEURONTIN) 630 Oral, BID, it y of capsule 300 03:00: First dose [place] mg 00 on Sat10/11/20 at Branch 2200, Until Discontinu ed, Routine ondansetron Yes 4mg 4 mg, Slow [facility] (ZOFRAN 6-30 IV Push, ity of (PF)) 02:52: Q6HPRN, [place] injection 4 29 Starting Medi brandy mg Sat10/11/20 at 2152, Until Discontinu ed, Routine, Nausea and Vomiting (N/V) HYDROcodone 2020- No 1{tbl} 1 tablet, Univers -acetaminop 630 06-30 Oral, ity of hen (NORCO) 02:52: 15:44 Q6HPRN, [place] 10-325 mg 25 :37 Starting Medica l tablet 1 Sat tablet 10/11/20 at 2152, Until Sat10/12/20 at 1044, Routine, Pain (scale 7-10) HYDROcodone 2020- No 1{tbl} 1 tablet, Univers -acetaminop 6-30 07-02 Oral, ity of hen (NORCO 02:51: 02:50 Q6HPRN, [place] as 5) 5-325 mg 18 :18 Starting Medi brandy tablet 1 [facility] tablet 10/11/20 at 2151, Until [place] 10/13/20 at 2150, Routine, Pain (scale 4-6) ibuprofen 2020-0 Yes 200mg 200 mg, Univ ers (MOTRIN IB) 6-30 Oral, ity of tablet 200 02:51: Q6HPRN, [place] mg 13 Starting Medical [facility] 10/11/20 at 2151, Until Discontinu ed, Routine, Pain (scale 1-3) morpHINE 2020- No 4mg 4 mg, Slow Un you injection 4 10-12 06-30 IV Push, ity of mg 01:15: 00:14 ONCE, 1 [place] 00 :00 dose, [facility] 10/11/20 at Branch 2014, STAT fenofibrate 0 Yes [id number] 145mg Take 1 [facility] 145 mg 6-30 tablet by ity of tablet 00:00: mouth [place] 00 daily. Medical Branch lipase-prot 2020-0 Yes [id number] 3{capsu Take 3 [facility] ease-amylas 6-30 le} capsules ity of e 00:00: by mouth 3 [place] 12,000-38,0 00 (three) Medic al 00 -60,000 times Branch unit daily with capsule meals. ursodioL 0 Yes [id number] 250mg Take 1 Un you 250 mg 6-30 tablet by ity of tablet 00:00: mouth 2 [place] 00 (two) Medical times Branch daily. fenofibrate 2020-0 Yes [id number] 145mg Take 1 [facility] 145 mg 6-30 tablet by ity of tablet 00:00: mouth [place] 00 daily. Medical Branch lipase-prot 2020-0 Yes [id number] 3{capsu Take 3 [facility] ease-amylas 6-30 le} capsules ity of e 00:00: by mouth 3 [place] 12,000-38,0 00 (three) Medic al 00 -60,000 times Branch unit daily with capsule meals. ursodioL 2020-0 Yes [id number] 250mg Take 1 Un you 250 mg 6-30 tablet by ity of tablet 00:00: mouth 2 [place] 00 (two) Medical times Branch daily. fenofibrate 2020-0 Yes [id number] 145mg Take 1 [facility] 145 mg 6-30 tablet by ity of tablet 00:00: mouth [place] 00 daily. Medical Branch lipase-prot 2020-0 Yes [id number] 3{capsu Take 3 [facility] ease-amylas 6-30 le} capsules ity of e 00:00: by mouth 3 [place] 12,000-38,0 00 (three) Medic al 00 -60,000 times Branch unit daily with capsule meals. ursodioL 2020-0 Yes [id number] 250mg Take 1 Un you 250 mg 6-30 tablet by ity of tablet 00:00: mouth 2 00 (two) Medical times Branch daily. fenofibrate 2020-0 Yes [id number] 145mg Take 1 [facility] 145 mg 6-30 tablet by ity of tablet 00:00: mouth [place] 00 daily. Medical Branch lipase-prot 2020-0 Yes [id number] 3{capsu Take 3 [facility] ease-amylas 6-30 le} capsules ity of e 00:00: by mouth 3 [place] 12,000-38,0 00 (three) Medic al 00 -60,000 times Branch unit daily with capsule meals. ursodioL 2020-0 Yes [id number] 250mg Take 1 Un you 250 mg 6-30 tablet by ity of tablet 00:00: mouth 2 (two) Medical times Branch daily. fenofibrate 2020-0 Yes [id number] 145mg Take 1 [facility] 145 mg 6-30 tablet by ity of tablet 00:00: mouth 00 daily. Medical Branch lipase-prot 2020-0 Yes [id number] 3{capsu Take 3 [facility] ease-amylas 6-30 le} capsules ity of e 00:00: by mouth 3 [place] 12,000-38,0 00 (three) Medic al 00 -60,000 times Branch unit daily with capsule meals. ursodioL 2020-0 Yes [id number] 250mg Take 1 Un you 250 mg 6-30 tablet by ity of tablet 00:00: mouth 2 00 (two) Medical times Branch daily. fenofibrate 2020-0 Yes [id number] 145mg Take 1 [facility] 145 mg 6-30 tablet by ity of tablet 00:00: mouth [place] 00 daily. Medical Branch lipase-prot 2020-0 Yes [id number] 3{capsu Take 3 [facility] ease-amylas 6-30 le} capsules ity of e 00:00: by mouth 3 [place] 12,000-38,0 00 (three) Medic al 00 -60,000 times Branch unit daily with capsule meals. ursodioL 2020-0 Yes [id number] 250mg Take 1 Un you 250 mg 6-30 tablet by ity of tablet 00:00: mouth 2 00 (two) Medical times Branch daily. fenofibrate 2020-0 Yes [id number] 145mg Take 1 [facility] 145 mg 6-30 tablet by ity of tablet 00:00: mouth [place] 00 daily. Medical Branch lipase-prot 2020-0 Yes [id number] 3{capsu Take 3 [facility] ease-amylas 6-30 le} capsules ity of e 00:00: by mouth 3 [place] 12,000-38,0 00 (three) Medic al 00 -60,000 times Branch unit daily with capsule meals. ursodioL 2020-0 Yes [id number] 250mg Take 1 Un you 250 mg 6-30 tablet by ity of tablet 00:00: mouth 2 [place] 00 (two) Medical times Branch daily. fenofibrate 2020-0 Yes [id number] 145mg Take 1 [facility] 145 mg 6-30 tablet by ity of tablet 00:00: mouth [place] 00 daily. Medical Branch lipase-prot 2020-0 Yes [id number] 3{capsu Take 3 [facility] ease-amylas 6-30 le} capsules ity of e 00:00: by mouth 3 [place] 12,000-38,0 00 (three) Medic al 00 -60,000 times Branch unit daily with capsule meals. ursodioL 2020-0 Yes [id number] 250mg Take 1 Un you 250 mg 6-30 tablet by ity of tablet 00:00: mouth 2 [place] 00 (two) Medical times Branch daily. fenofibrate 2020-0 Yes [id number] 145mg Take 1 [facility] 145 mg 6-30 tablet by ity of tablet 00:00: mouth [place] 00 daily. Medical Branch lipase-prot 2020-0 Yes [id number] 3{capsu Take 3 [facility] ease-amylas 6-30 le} capsules ity of e 00:00: by mouth 3 [place] 12,000-38,0 00 (three) Medic al 00 -60,000 times Branch unit daily with capsule meals. ursodioL 2020-0 Yes [id number] 250mg Take 1 Un you 250 mg 6-30 tablet by ity of tablet 00:00: mouth 2 00 (two) Medical times Branch daily. fenofibrate 2020-0 Yes [id number] 145mg Take 1 [facility] 145 mg 6-30 tablet by ity of tablet 00:00: mouth [place] 00 daily. Medical Branch lipase-prot 2020-0 Yes [id number] 3{capsu Take 3 [facility] ease-amylas 6-30 le} capsules ity of e 00:00: by mouth 3 [place] 12,000-38,0 00 (three) Medic al 00 -60,000 times Branch unit daily with capsule meals. ursodioL 2020-0 Yes [id number] 250mg Take 1 Un you 250 mg 6-30 tablet by ity of tablet 00:00: mouth 2 (two) Medical times Branch daily. fenofibrate 2020-0 Yes [id number] 145mg Take 1 [facility] 145 mg 6-30 tablet by ity of tablet 00:00: mouth 00 daily. Medical Branch lipase-prot 2020-0 Yes [id number] 3{capsu Take 3 [facility] ease-amylas 6-30 le} capsules ity of e 00:00: by mouth 3 [place] 12,000-38,0 00 (three) Medic al 00 -60,000 times Branch unit daily with capsule meals. ursodioL 2020-0 Yes [id number] 250mg Take 1 Un you 250 mg 6-30 tablet by ity of tablet 00:00: mouth 2 (two) Medical times Branch daily. fenofibrate 2020-0 Yes [id number] 145mg Take 1 [facility] 145 mg 6-30 tablet by ity of tablet 00:00: mouth 00 daily. Medical Branch lipase-prot 2020-0 Yes [id number] 3{capsu Take 3 [facility] ease-amylas 6-30 le} capsules ity of e 00:00: by mouth 3 [place] 12,000-38,0 00 (three) Medic al 00 -60,000 times Branch unit daily with capsule meals. ursodioL 2020-0 Yes [id number] 250mg Take 1 Un you 250 mg 6-30 tablet by ity of tablet 00:00: mouth 2 00 (two) Medical times Branch daily. fenofibrate 2020-0 Yes [id number] 145mg Take 1 [facility] 145 mg 6-30 tablet by ity of tablet 00:00: mouth [place] 00 daily. Medical Branch lipase-prot 2020-0 Yes [id number] 3{capsu Take 3 [facility] ease-amylas 6-30 le} capsules ity of e 00:00: by mouth 3 [place] 12,000-38,0 00 (three) Medic al 00 -60,000 times Branch unit daily with capsule meals. ursodioL 2020-0 Yes [id number] 250mg Take 1 Un you 250 mg 6-30 tablet by ity of tablet 00:00: mouth 2 00 (two) Medical times Branch daily. fenofibrate 2020-0 Yes [id number] 145mg Take 1 [facility] 145 mg 6-30 tablet by ity of tablet 00:00: mouth [place] 00 daily. Medical Branch lipase-prot 2020- Yes [id number] 3{capsu Take 3 [facility] ease-amylas 6-30 le} capsules ity of e 00:00: by mouth 3 [place] 12,000-38,0 00 (three) Medic al 00 -60,000 times Branch unit daily with capsule meals. ursodioL 2020- Yes [id number] 250mg Take 1 Un you 250 mg 6-30 tablet by ity of tablet 00:00: mouth 2 (two) Medical times Branch daily. fenofibrate 2020-0 Yes [id number] 145mg Take 1 [facility] 145 mg 6-30 tablet by ity of tablet 00:00: mouth [place] 00 daily. Medical Branch lipase-prot 2020-0 Yes [id number] 3{capsu Take 3 [facility] ease-amylas 6-30 le} capsules ity of e 00:00: by mouth 3 [place] 12,000-38,0 00 (three) Medic al 00 -60,000 times Branch unit daily with capsule meals. ursodioL 2020-0 Yes [id number] 250mg Take 1 Un you 250 mg 6-30 tablet by ity of tablet 00:00: mouth 2 [place] 00 (two) Medical times Branch daily. fenofibrate 2020-0 Yes [id number] 145mg Take 1 [facility] 145 mg 6-30 tablet by ity of tablet 00:00: mouth [place] 00 daily. Medical Branch lipase-prot 2020-0 Yes [id number] 3{capsu Take 3 [facility] ease-amylas 6-30 le} capsules ity of e 00:00: by mouth 3 [place] 12,000-38,0 00 (three) Medic al 00 -60,000 times Branch unit daily with capsule meals. ursodioL 2020-0 Yes [id number] 250mg Take 1 Un you 250 mg 6-30 tablet by ity of tablet 00:00: mouth 2 [place] 00 (two) Medical times Branch daily. fenofibrate 2020-0 Yes [id number] 145mg Take 1 [facility] 145 mg 6-30 tablet by ity of tablet 00:00: mouth [place] 00 daily. Medical Branch lipase-prot 2020-0 Yes [id number] 3{capsu Take 3 [facility] ease-amylas 6-30 le} capsules ity of e 00:00: by mouth 3 [place] 12,000-38,0 00 (three) Medic al 00 -60,000 times Branch unit daily with capsule meals. ursodioL 2020-0 Yes [id number] 250mg Take 1 Un you 250 mg 6-30 tablet by ity of tablet 00:00: mouth 2 [place] 00 (two) Medical times Branch daily. fenofibrate 2020-0 Yes [id number] 145mg Take 1 [facility] 145 mg 6-30 tablet by ity of tablet 00:00: mouth [place] 00 daily. Medical Branch lipase-prot 2020-0 Yes [id number] 3{capsu Take 3 [facility] ease-amylas 6-30 le} capsules ity of e 00:00: by mouth 3 [place] 12,000-38,0 00 (three) Medic al 00 -60,000 times Branch unit daily with capsule meals. ursodioL 2020-0 Yes [id number] 250mg Take 1 Un you 250 mg 6-30 tablet by ity of tablet 00:00: mouth 2 00 (two) Medical times Branch daily. fenofibrate 2020-0 Yes [id number] 145mg Take 1 [facility] 145 mg 6-30 tablet by ity of tablet 00:00: mouth [place] 00 daily. Medical Branch lipase-prot 2020-0 Yes [id number] 3{capsu Take 3 [facility] ease-amylas 6-30 le} capsules ity of e 00:00: by mouth 3 [place] 12,000-38,0 00 (three) Medic al 00 -60,000 times Branch unit daily with capsule meals. ursodioL 2020-0 Yes [id number] 250mg Take 1 Un you 250 mg 6-30 tablet by ity of tablet 00:00: mouth 2 (two) Medical times Branch daily. fenofibrate 2020-0 Yes [id number] 145mg Take 1 [facility] 145 mg 6-30 tablet by ity of tablet 00:00: mouth [place] 00 daily. Medical Branch lipase-prot 2020-0 Yes [id number] 3{capsu Take 3 [facility] ease-amylas 6-30 le} capsules ity of e 00:00: by mouth 3 [place] 12,000-38,0 00 (three) Medic al 00 -60,000 times Branch unit daily with capsule meals. ursodioL 2020-0 Yes [id number] 250mg Take 1 Un you 250 mg 6-30 tablet by ity of tablet 00:00: mouth 2 (two) Medical times Branch daily. fenofibrate 2020-0 Yes [id number] 145mg Take 1 [facility] 145 mg 6-30 tablet by ity of tablet 00:00: mouth 00 daily. Medical Branch fenofibrate 2020-0 Yes [id number] 145mg Take 1 [facility] 145 mg 6-30 tablet by ity of tablet 00:00: mouth [place] 00 daily. Medical Branch lipase-prot 2020-0 Yes [id number] 3{capsu Take 3 [facility] ease-amylas 6-30 le} capsules ity of e 00:00: by mouth 3 [place] 12,000-38,0 00 (three) Medic al 00 -60,000 times Branch unit daily with capsule meals. ursodioL 2020-0 Yes [id number] 250mg Take 1 Un you 250 mg 6-30 tablet by ity of tablet 00:00: mouth 2 [place] (two) Medical times Branch daily. lipase-prot 2020-0 Yes [id number] 3{capsu Take 3 [facility] ease-amylas 6-30 le} capsules ity of e 00:00: by mouth 3 [place] 12,000-38,0 00 (three) Medic al 00 -60,000 times Branch unit daily with capsule meals. ursodioL 2020-0 Yes [id number] 250mg Take 1 Un you 250 mg 6-30 tablet by ity of tablet 00:00: mouth 2 00 (two) Medical times Branch daily. fenofibrate 2020-0 Yes [id number] 145mg Take 1 [facility] 145 mg 6-30 tablet by ity of tablet 00:00: mouth [place] 00 daily. Medical Branch lipase-prot 2020-0 Yes [id number] 3{capsu Take 3 [facility] ease-amylas 6-30 le} capsules ity of e 00:00: by mouth 3 [place] 12,000-38,0 00 (three) Medic al 00 -60,000 times Branch unit daily with capsule meals. ursodioL 2020-0 Yes [id number] 250mg Take 1 Un you 250 mg 6-30 tablet by ity of tablet 00:00: mouth 2 [place] 00 (two) Medical times Branch daily. fenofibrate 2020-0 Yes [id number] 145mg Take 1 [facility] 145 mg 6-30 tablet by ity of tablet 00:00: mouth [place] 00 daily. Medical Branch lipase-prot 2020-0 Yes [id number] 3{capsu Take 3 [facility] ease-amylas 6-30 le} capsules ity of e 00:00: by mouth 3 [place] 12,000-38,0 00 (three) Medic al 00 -60,000 times Branch unit daily with capsule meals. ursodioL 2020-0 Yes [id number] 250mg Take 1 Un you 250 mg 6-30 tablet by ity of tablet 00:00: mouth 2 00 (two) Medical times Branch daily. fenofibrate 2020-0 Yes [id number] 145mg Take 1 [facility] 145 mg 6-30 tablet by ity of tablet 00:00: mouth [place] 00 daily. Medical Branch fenofibrate 2020-0 Yes [id number] 145mg Take 1 [facility] 145 mg 6-30 tablet by ity of tablet 00:00: mouth [place] 00 daily. Medical Branch fenofibrate 2020-0 Yes [id number] 145mg Take 1 [facility] 145 mg 6-30 tablet by ity of tablet 00:00: mouth [place] 00 daily. Medical Branch lipase-prot 2020-0 Yes [id number] 3{capsu Take 3 [facility] ease-amylas 6-30 le} capsules ity of e 00:00: by mouth 3 [place] 12,000-38,0 00 (three) Medic al 00 -60,000 times Branch unit daily with capsule meals. ursodioL 2020-0 Yes [id number] 250mg Take 1 Un you 250 mg 6-30 tablet by ity of tablet 00:00: mouth 2 [place] 00 (two) Medical times Branch daily. fenofibrate 2020-0 Yes [id number] 145mg Take 1 [facility] 145 mg 6-30 tablet by ity of tablet 00:00: mouth [place] 00 daily. Medical Branch fenofibrate 2020-0 Yes [id number] 145mg Take 1 [facility] 145 mg 6-30 tablet by ity of tablet 00:00: mouth [place] 00 daily. Medical Branch fenofibrate 2020-0 Yes [id number] 145mg Take 1 [facility] 145 mg 6-30 tablet by ity of tablet 00:00: mouth [place] 00 daily. Medical Branch fenofibrate 2020-0 Yes [id number] 145mg Take 1 [facility] 145 mg 6-30 tablet by ity of tablet 00:00: mouth [place] 00 daily. Medical Branch fenofibrate 2020-0 Yes [id number] 145mg Take 1 [facility] 145 mg 6-30 tablet by ity of tablet 00:00: mouth [place] 00 daily. Medical Branch fenofibrate 2020-0 Yes [id number] 145mg Take 1 [facility] 145 mg 6-30 tablet by ity of tablet 00:00: mouth [place] 00 daily. Medical Branch fenofibrate 2020-0 Yes [id number] 145mg Take 1 [facility] 145 mg 6-30 tablet by ity of tablet 00:00: mouth [place] 00 daily. Medical Branch fenofibrate 2020-0 Yes [id number] 145mg Take 1 [facility] 145 mg 6-30 tablet by ity of tablet 00:00: mouth [place] 00 daily. Medical Branch fenofibrate 2020-0 Yes [id number] 145mg Take 1 [facility] 145 mg 6-30 tablet by ity of tablet 00:00: mouth [place] 00 daily. Medical Branch fenofibrate 2020-0 Yes [id number] 145mg Take 1 [facility] 145 mg 6-30 tablet by ity of tablet 00:00: mouth [place] 00 daily. Medical Branch fenofibrate 2020-0 Yes [id number] 145mg Take 1 [facility] 145 mg 6-30 tablet by ity of tablet 00:00: mouth [place] 00 daily. Medical Branch fenofibrate 2020-0 Yes [id number] 145mg Take 1 [facility] 145 mg 6-30 tablet by ity of tablet 00:00: mouth [place] 00 daily. Medical Branch fenofibrate 2020-0 Yes [id number] 145mg Take 1 [facility] 145 mg 6-30 tablet by ity of tablet 00:00: mouth [place] 00 daily. Medical Branch fenofibrate 0 Yes [id number] 145mg Take 1 [facility] 145 mg 6-30 tablet by ity of tablet 00:00: mouth [place] 00 daily. [facility] Branch fenofibrate 0 Yes [id number] 145mg Take 1 [facility] 145 mg 6-30 tablet by ity of tablet 00:00: mouth [place] 00 daily. [facility] Branch fenofibrate 0 Yes [id number] 145mg Take 1 [facility] 145 mg 6-30 tablet by ity of tablet 00:00: mouth [place] 00 daily. Medical Branch lipase-prot 2021- No [id number] 3{capsu Take 3 [facility] ease-amylas 6- 02-06 le} capsules ity of e 00:00: 00:00 by mouth 3 [place] 12,000-38,0 00 :00 (three) Medic al 00 -60,000 times [place] unit daily with capsule meals. ursodioL 2021- No [id number] 250mg Take 1 [facility] n[facility] 250 mg 10-12 tablet by ity of tablet 00:00: 00:00 mouth 2 [place] 00 :00 (two) Medical times Branch daily. morpHINE 2020- No 6mg 6 mg, Slow Un you injection 6 10-11 IV Push, ity of mg 22:15: 21:09 ONCE, 1 [place] 00 :00 dose, [facility] 10/11/20 at Branch 1715, STAT FENTanyl PF 2020- No 100ug 100 mcg, [facility] (SUBLIMAZE 10-11 Slow IV ity o f (PF)) 20:00: 18:53 Push, [place] injection 00 :00 ONCE, 1 Medical 100 mcg dose, [facility] 10/11/20 at 1500, Routine ondansetron 2020- No 4mg 4 mg, Slow [facility] (ZOFRAN 10-11 IV Push, ity of (PF)) 20:00: 18:54 ONCE, 1 [place] injection 4 00 :00 dose, [facility] mg 10/11/20 at Branch 1500, [place] morpHINE 2020- No 6mg 6 mg, Slow Un you injection 6 10-11 IV Push, ity of mg 16:45: 15:42 ONCE, 1 [place] 00 :00 dose, [facility] 10/11/20 at Branch 1145, STAT FENTanyl PF 2020- No 100ug 100 mcg, [facility] (SUBLIMAZE 10-11 Slow IV ity o f (PF)) 16:15: 15:06 Push, [place] injection 00 :00 ONCE, 1 Medical 100 mcg dose, [facility] 10/11/20 at 1115, Routine metoclopram 2020- No 10mg 10 mg, Uni vers selena HCl 10-11 Slow IV ity of (REGLAN) 16:15: 15:06 Push, [place] injection 00 :00 ONCE, 1 Medical 10 mg dose, [facility] 10/11/20 at 1115, [place] morpHINE 2020- No 4mg 4 mg, Slow Un you injection 4 10-05 IV Push, ity of mg 01:15: 00:15 ONCE, 1 [place] 00 :00 dose, [facility] 10/04/20 at Branch 2015, STAT ondansetron 2020- No 4mg 4 mg, Slow [facility] (ZOFRAN 10-05 IV Push, ity of (PF)) 00:00: 23:22 ONCE, 1 [place] injection 4 00 :00 dose, [facility] mg 10/04/20 at Branch 1900, [place] FENTanyl PF 2020- No 50ug 50 mcg, Un you (SUBLIMAZE 10-05 Slow IV ity o f (PF)) 00:00: 23:22 Push, [place] injection 00 :00 ONCE, 1 Medical 50 mcg dose, [facility] 10/04/20 at 1900, STAT NaCl 0.9% 2020- No 1000mL at 999 Uni vers (NS) bolus 10-04 mL/hr, ity of infusion 23:00: 01:20 1,000 mL, [place] 1,000 mL 00 :00 IV Medical Infusion, [place] ONCE, 1 dose, [facility] 10/04/20 at 1800, LOIUS promethazin Yes [id number] 50mg Insert 1 [facility] e 50 mg 10-04 Suppositor ity of suppository 00:00: [place] 00 rectum Medical every 6 Branch (six) hours as needed for Nausea and Vomiting (N/V). ondansetron Yes [id number] 4mg Take 1 [facility] (ZOFRAN 6-22 tablet by ity of ODT) 4 mg 00:00: mouth [place] disintegrat 00 every 8 Medic al ing tablet (eight) Branch hours as needed for Nausea and Vomiting (N/V). promethazin Yes [id number] 50mg Insert 1 [facility] e 50 mg 6-22 Suppositor ity of suppository 00:00: y [place] 00 rectum Medical every 6 Branch (six) hours as needed for Nausea and Vomiting (N/V). promethazin Yes [id number] 50mg Insert 1 [facility] e 50 mg 6-22 Suppositor ity of suppository 00:00: y [place] 00 rectum Medical every 6 Branch (six) hours as needed for Nausea and Vomiting (N/V). promethazin Yes [id number] 50mg Insert 1 [facility] e 50 mg 6-22 Suppositor ity of suppository 00:00: y [place] 00 rectum Medical every 6 Branch (six) hours as needed for Nausea and Vomiting (N/V). promethazin Yes [id number] 50mg Insert 1 [facility] e 50 mg 6-22 Suppositor ity of suppository 00:00: y [place] 00 rectum Medical every 6 Branch (six) hours as needed for Nausea and Vomiting (N/V). promethazin Yes [id number] 50mg Insert 1 [facility] e 50 mg 6-22 Suppositor ity of suppository 00:00: y into [place] 00 rectum Medical every 6 Branch (six) hours as needed for Nausea and Vomiting (N/V). promethazin Yes [id number] 50mg Insert 1 Univers e 50 mg 6-22 Suppositor ity of suppository 00:00: y into [place] 00 rectum Medical every 6 Branch (six) hours as needed for Nausea and Vomiting (N/V). promethazin Yes [id number] 50mg Insert 1 Univers e 50 mg 6-22 Suppositor ity of suppository 00:00: y [place] 00 rectum Medical every 6 Branch (six) hours as needed for Nausea and Vomiting (N/V). promethazin Yes [id number] 50mg Insert 1 Univers e 50 mg 6-22 Suppositor ity of suppository 00:00: y into [place] 00 rectum Medical every 6 Branch (six) hours as needed for Nausea and Vomiting (N/V). promethazin Yes [id number] 50mg Insert 1 Univers e 50 mg 6-22 Suppositor ity of suppository 00:00: y into [place] 00 rectum Medical every 6 Branch (six) hours as needed for Nausea and Vomiting (N/V). promethazin Yes [id number] 50mg Insert 1 Univers e 50 mg 6-22 Suppositor ity of suppository 00:00: y into [place] 00 rectum Medical every 6 Branch (six) hours as needed for Nausea and Vomiting (N/V). promethazin Yes [id number] 50mg Insert 1 Univers e 50 mg 6-22 Suppositor ity of suppository 00:00: y into [place] 00 rectum Medical every 6 Branch (six) hours as needed for Nausea and Vomiting (N/V). promethazin Yes [id number] 50mg Insert 1 Univers e 50 mg 6-22 Suppositor ity of suppository 00:00: y into [place] 00 rectum Medical every 6 Branch (six) hours as needed for Nausea and Vomiting (N/V). promethazin Yes [id number] 50mg Insert 1 Univers e 50 mg 6-22 Suppositor ity of suppository 00:00: y into [place] 00 rectum Medical every 6 Branch (six) hours as needed for Nausea and Vomiting (N/V). promethazin Yes [id number] 50mg Insert 1 Univers e 50 mg 6-22 Suppositor ity of suppository 00:00: y into [place] 00 rectum Medical every 6 Branch (six) hours as needed for Nausea and Vomiting (N/V). promethazin Yes [id number] 50mg Insert 1 Univers e 50 mg 6-22 Suppositor ity of suppository 00:00: y into [place] 00 rectum Medical every 6 Branch (six) hours as needed for Nausea and Vomiting (N/V). promethazin Yes [id number] 50mg Insert 1 Univers e 50 mg 6-22 Suppositor ity of suppository 00:00: y into [place] 00 rectum Medical every 6 Branch (six) hours as needed for Nausea and Vomiting (N/V). promethazin Yes [id number] 50mg Insert 1 [facility] e 50 mg 6-22 Suppositor ity of suppository 00:00: y into [place] 00 rectum Medical every 6 Branch (six) hours as needed for Nausea and Vomiting (N/V). promethazin Yes [id number] 50mg Insert 1 Univers e 50 mg 6-22 Suppositor ity of suppository 00:00: y into [place] 00 rectum Medical every 6 Branch (six) hours as needed for Nausea and Vomiting (N/V). promethazin Yes [id number] 50mg Insert 1 Univers e 50 mg 6-22 Suppositor ity of suppository 00:00: y into [place] 00 rectum Medical every 6 Branch (six) hours as needed for Nausea and Vomiting (N/V). promethazin Yes [id number] 50mg Insert 1 Univers e 50 mg 6-22 Suppositor ity of suppository 00:00: y into [place] 00 rectum Medical every 6 Branch (six) hours as needed for Nausea and Vomiting (N/V). promethazin 2021- No [id number] 50mg Insert 1 Univers e 50 mg 6-04-15 Suppositor ity o f suppository 00:00: 00:00 y into [place] 00 :00 rectum Medical every 6 Branch (six) hours as needed for Nausea and Vomiting (N/V). ondansetron 2020- No [id number] 4mg Take 1 [facility] (ZOFRAN 6-04 10-30 tablet by ity of ODT) 4 mg 00:00: 00:00 mouth [place] disintegrat 00 :00 every 8 Medic al ing tablet (eight) Branch hours as needed for Nausea and Vomiting (N/V). losartan Yes TAKE [address] [facility] (COZAAR) 5-28 TABLET BY [facility] 100 MG 13:24: MOUTH Medical tablet 24 EVERY DAY Center diazePAM Yes 2mg Take [address] [facility] (VALIUM) 2 09-09 by mouth 2 [facility] MG tablet 13:24: (two) Medical 24 times Center daily as needed for Anxiety. pancrelipas 2021- No [id number]{ Take [address] [facility] e, 09-09 lipase} capsules [facility] Lip-Prot-Am 00:00: 23:59 (72,000 Me dical yl, (CREON) 00 :00 units of Cent er 24,000-76,0 lipase 00 -120,000 total) by unit CpDR mouth 3 capsule (three) times daily with meals. ursodioL 2021- No 500mg Q.5D Take 1 [facility] (ACTIGALL[facility] 09-09 tablet [facility] 500 MG 00:00: 23:59 (500 mg Medical tablet 00 :00 total) by Center mouth 2 (two) times daily. dexamethaso 2020- No 10mg 10 mg, Uni [...] Fri Med ical ing tablet 08/05/20 at [facility] 4 mg 0930, Routine tiZANidine Yes 2mg Q.5D Take [address] [facility] [address] [facility] (ZANAFLEX) 4-19 by mouth 2 [facility] 2 MG tablet 00:00: (two) Medic al 00 times Center daily. traZODone Yes 100mg QD Take [address] [facility] (DESYREL) 4-19 mg by [facility] 100 MG 00:00: mouth Medical tablet 00 nightly. [place] traZODone 0 Yes 100mg Take 100 Uni vers 100 mg 4-05 mg by ity of tablet 13:30: mouth at [place] [address] bedtime. [facility] Branch traZODone 0 Yes 100mg Take 100 Uni vers 100 mg 4-05 mg by ity of tablet 13:30: mouth at [place] [address] bedtime. [facility] Branch traZODone Yes 100mg Take 100 Uni vers 100 mg 4-05 mg by ity of tablet 13:30: mouth at [place] [address] [facility] triamcinolo Yes PRN[facility] Starting ity of acetonide 12:07: 07/18/[place] (KENALOG[place] 00 at 0707, Medica l injection Until Branch Discontinu ed, Routine, Intra-op iohexoL Yes PRN, Univers (OMNIPAQUE 05 Starting ity o f 300-50 mL)) 12:07: 07/18/20 [place] injection 00 at 0707, Medica l Until Branch Discontinu ed, Routine, Intra-op lidocaine Yes PRN, Univers 1% 07-18 Starting ity of (XYLOCAINE) 12:07: Sat07/18/20 [place] 10 mg/mL (1 00 at 0707, Medi brandy %) Until Branch injection Discontinu ed, Routine, Intra-op triamcinolo 2020- No PRN, Unive ne 07-18- Starting ity of acetonide 12:07: 15:30 07/18/20 [place] (KENALOG) 00 :22 at 0707, Medica l injection Until Mon Branc h 07/18/20 at 1030, Routine, Intra-op iohexoL 2020- No PRN, Univers (OMNIPAQUE 07-18-05 Starting ity of 300-50 mL)) 12:07: 15:30 [facility] 07/18/20 [place] injection 00 :22 at 0707, Medica l Until [facility] Branch 07/18/20 at 1030, Routine, Intra-op lidocaine 2020- No PRN, Univers 1% 07-1805 Starting ity of (XYLOCAINE) 12:07: 15:30 [facility] 07/18/20 [place] 10 mg/mL (1 00 :22 at 0707, Medi brandy %) Until [facility] Branch injection 07/18/20 at 1030, Routine, Intra-op escitalopra 2020- No 20mg Take 20 mg Univers m oxalate 07-18-05 by mouth ity o f (LEXAPRO) 11:43: 00:00 at [place] 20 mg 22 :00 bedtime. Medical tablet Branch divalproex 2020- No 500mg Take 500 U nivers (DEPAKOTE) 07-18 04-05 mg by ity of 500 mg EC 11:43: 00:00 mouth [place] tablet 22 :00 daily. Medical Branch chlordiazeP 2020- No 10mg Take 10 mg Univers OXIDE 10 mg 07-18-05 by mouth 3 i ty of capsule 11:43: 00:00 (three) [place] 22 :00 times Medical daily. Branch lithium 2020- No 300mg Take 300 Univ ers carbonate 07-18 04-05 mg by ity of 300 mg 11:43: 00:00 mouth 2 [place] capsule 22 :00 (two) Medical times Branch daily. temazepam 2020- No 15mg Take 15 mg U nivers 15 mg 07-18-05 by mouth ity of capsule 11:43: 00:00 at bedtime [place] 22 :00 as needed Medical for Branch Insomnia. ursodioL 2020- No 500mg Take 500 Uni vers 500 mg -05 04-05 mg by ity of tablet 11:43: 00:00 mouth 2 [place] 22 :00 (two) Medical times Branch daily. escitalopra 2020- No 20mg Take 20 mg Univers m oxalate 07-18-05 by mouth ity o f (LEXAPRO) 11:43: [...] ity of tablet 11:42: 00:00 mouth 2 [place] 27 :00 (two) Medical times [place] daily with meals. traZODone Yes 100mg Take 100 Uni vers 100 mg 4-05 mg by ity of tablet 11:28: mouth at [place] 50 bedtime. Medical Branch losartan Yes 100mg 100 mg, Unive rs (COZAAR) 07-08 Oral, ity of tablet 100 14:00: DAILY, [place] mg 00 First dose Medical on Sat [place] 07/08/20 at 0900, Until Discontinu ed, Routine ondansetron 2020- No 4mg 4 mg, Slow [facility] (ZOFRAN 07-08 IV Push, ity of (PF)) 03:15: 02:29 ONCE, 1 [place] injection 4 00 :00 dose, [facility] Med ical mg 07/07/20 at Branch 2215, [place] morpHINE 2020- No 4mg 4 mg, Slow Un you injection 4 07-08 IV Push, ity of mg 03:15: 02:28 ONCE, 1 [place] 00 :00 dose, [facility] Medical 07/07/20 at Branch 2215, STAT morpHINE 2020- No 4mg 4 mg, Slow Un you injection 4 07-08 IV Push, ity of mg 01:45: 01:05 ONCE, 1 [place] 00 :00 dose, [facility] 07/07/20 at Branch 2045, STAT iohexol 2020- No [id number] 120mL 120 mL, Univers (OMNIPAQUE 07-08 Intravenou it y of 350 01:00: 00:55 s, ONCE, 1 [place] BULK-150 00 :00 dose, [facility] Medica l mL) 07/07/20 at [place] injection 2000, 120 mL Routine NaCl 0.9% 2020- No 1000mL at 999 Uni vers (NS) bolus 07-08 mL/hr, ity of infusion 01:00: 02:24 1,000 mL, [place] 1,000 mL 00 :00 IV Medical Infusion, [place] ONCE, 1 dose, [facility] 07/07/20 at 2000, STAT ondansetron 2020- No 4mg 4 mg, Slow [facility] (ZOFRAN 3-26 03-26 IV Push, ity of (PF)) 01:00: 00:25 ONCE, 1 [place] injection 4 00 :00 dose, [facility] Med ical mg 07/07/20 at Branch 1999, [place] ondansetron 2021-0 Yes [id number] 4mg Take 1 [facility] (ZOFRAN 3-25 tablet by ity of ODT) 4 mg 00:00: mouth [place] disintegrat 00 every 8 Medic al ing tablet (eight) Branch hours as needed for Nausea and Vomiting (N/V). ondansetron 2021-0 Yes [id number] 4mg Take 1 [facility] (ZOFRAN 3-25 tablet by ity of ODT) 4 mg 00:00: mouth [place] disintegrat 00 every 8 Medic al ing tablet (eight) Branch hours as needed for Nausea and Vomiting (N/V). ondansetron 2021-0 Yes [id number] 4mg Take 1 [facility] (ZOFRAN 3-25 tablet by ity of ODT) 4 mg 00:00: mouth [place] disintegrat 00 every 8 Medic al ing tablet (eight) Branch hours as needed for Nausea and Vomiting (N/V). ondansetron 2021-0 Yes [id number] 4mg Take 1 [facility] (ZOFRAN 3-25 tablet by ity of ODT) 4 mg 00:00: mouth [place] disintegrat 00 every 8 Medic al ing tablet (eight) Branch hours as needed for Nausea and Vomiting (N/V). ondansetron 2021-0 Yes [id number] 4mg Take 1 [facility] (ZOFRAN 3-25 tablet by ity of ODT) 4 mg 00:00: mouth [place] disintegrat 00 every 8 Medic al ing tablet (eight) Branch hours as needed for Nausea and Vomiting (N/V). ondansetron 2021-0 Yes [id number] 4mg Take 1 [facility] (ZOFRAN 3-25 tablet by ity of ODT) 4 mg 00:00: mouth [place] disintegrat 00 every 8 Medic al ing tablet (eight) Branch hours as needed for Nausea and Vomiting (N/V). ondansetron 2021-0 Yes [id number] 4mg Take 1 [facility] (ZOFRAN 3-25 tablet by ity of ODT) 4 mg 00:00: mouth [place] disintegrat 00 every 8 Medic al ing tablet (eight) Branch hours as needed for Nausea and Vomiting (N/V). ondansetron 2021-0 Yes [id number] 4mg Take 1 [facility] (ZOFRAN 3-25 tablet by ity of ODT) 4 mg 00:00: mouth [place] disintegrat 00 every 8 Medic al ing tablet (eight) Branch hours as needed for Nausea and Vomiting (N/V). ondansetron 2021-0 Yes [id number] 4mg Take 1 [facility] (ZOFRAN 3-25 tablet by ity of ODT) 4 mg 00:00: mouth [place] disintegrat 00 every 8 Medic al ing tablet (eight) Branch hours as needed for Nausea and Vomiting (N/V). ondansetron 2021-0 Yes [id number] 4mg Take 1 [facility] (ZOFRAN 3-25 tablet by ity of ODT) 4 mg 00:00: mouth [place] disintegrat 00 every 8 Medic al ing tablet (eight) Branch hours as needed for Nausea and Vomiting (N/V). ondansetron 2021-0 Yes [id number] 4mg Take 1 [facility] (ZOFRAN 3-25 tablet by ity of ODT) 4 mg 00:00: mouth [place] disintegrat 00 every 8 Medic al ing tablet (eight) Branch hours as needed for Nausea and Vomiting (N/V). ondansetron 2021-0 Yes [id number] 4mg Take 1 [facility] (ZOFRAN 3-25 tablet by ity of ODT) 4 mg 00:00: mouth [place] disintegrat 00 every 8 Medic al ing tablet (eight) Branch hours as needed for Nausea and Vomiting (N/V). ondansetron 2021-0 Yes [id number] 4mg Take 1 [facility] (ZOFRAN 3-25 tablet by ity of ODT) 4 mg 00:00: mouth [place] disintegrat 00 every 8 Medic al ing tablet (eight) Branch hours as needed for Nausea and Vomiting (N/V). ondansetron 2021-0 Yes [id number] 4mg Take 1 [facility] (ZOFRAN 3-25 tablet by ity of ODT) 4 mg 00:00: mouth [place] disintegrat 00 every 8 Medic al ing tablet (eight) Branch hours as needed for Nausea and Vomiting (N/V). ondansetron 2021-0 Yes [id number] 4mg Take 1 [facility] (ZOFRAN 3-25 tablet by ity of ODT) 4 mg 00:00: mouth [place] disintegrat 00 every 8 Medic al ing tablet (eight) Branch hours as needed for Nausea and Vomiting (N/V). ondansetron 2020-0 Yes [id number] 4mg Take 1 [facility] (ZOFRAN 3-25 tablet by ity of ODT) 4 mg 00:00: mouth [place] disintegrat 00 every 8 Medic al ing tablet (eight) Branch hours as needed for Nausea and Vomiting (N/V). ondansetron 2020-0 Yes [id number] 4mg Take 1 [facility] (ZOFRAN 3-25 tablet by ity of ODT) 4 mg 00:00: mouth [place] disintegrat 00 every 8 Medic al ing tablet (eight) Branch hours as needed for Nausea and Vomiting (N/V). ondansetron 2020-0 Yes [id number] 4mg Take 1 [facility] (ZOFRAN 3-25 tablet by ity of ODT) 4 mg 00:00: mouth [place] disintegrat 00 every 8 Medic al ing tablet (eight) Branch hours as needed for Nausea and Vomiting (N/V). ondansetron 2020-0 Yes [id number] 4mg Take 1 [facility] (ZOFRAN 3-25 tablet by ity of ODT) 4 mg 00:00: mouth [place] disintegrat 00 every 8 Medic al ing tablet (eight) Branch hours as needed for Nausea and Vomiting (N/V). ondansetron 2020-0 2020- No [id number] 4mg Take 1 Univers (ZOFRAN 3-25 12-06 [...] [place] 04 times Medical daily. Branch chlordiazeP Yes 10mg [...] as needed Medical for Branch Insomnia. ursodioL 2021-0 Yes 500mg Take 500 Univ ers 500 [...] [place] ORAL) 04 daily. Medical Branch gabapentin Yes 300mg Take [...] mouth [place] 04 daily. Medical Branch lithium 2021-0 Yes 300mg Take 300 Unive rs carbonate 3-22 mg by ity of 300 mg 13:47: mouth 2 [facility] (two) Medical times Branch daily. temazepam 2020-0 Yes 15mg Take 15 mg Un you 15 mg 3-22 by mouth ity of capsule 13:47: at bedtime [place] 04 as needed Medical for Branch Insomnia. ursodioL 2020-0 Yes 500mg Take 500 Univ ers 500 mg 3-22 mg by ity of tablet 13:47: mouth 2 [place] (two) Medical times Branch daily. traZODone 2020-0 Yes 100mg Take 100 Uni vers 100 mg 3-22 mg by ity of tablet 13:47: mouth at [place] [address] bedtime. Medical Branch ARIPiprazol 0 Yes 10mg Take 10 mg Univers e 10 mg 3-22 by mouth ity of tablet 13:47: daily. [place] [address] Medical Branch carvediloL 0 Yes 12.5mg Take 12.5 Univers 12.5 mg 3-22 mg by ity of tablet 13:47: mouth 2 [place] (two) Medical times Branch daily with meals. lactated 2020-0 Yes 1000mL at 100 Unive rs ringers IV 3-22 mL/hr, ity of infusion 13:15: 1,000 mL, [place] 1,000 mL 00 IV Medical Infusion, Branch CONTINUOUS , Starting Sat07/04/20 at 0815, Until Discontinu ed, Routine, PACU FENTanyl PF 2020-0 Yes 25ug 25 mcg, Uni vers (SUBLIMAZE 3-22 Slow IV ity of (PF)) 13:10: Push, [place] injection 11 Q5MIN PRN, Medi brandy 25 [...] ity of 1,000 mg in 12:00: Piggyback, [place] NaCl 0.9% 00 Q8H ABX, Medica l (NS) 50 mL First dose [facility] MINI-BAG on Sat07/04/20 at 0700, Until Discontinu ed, 50 mL, [facility] Pre-op
Reason for Anti-Infec tive: Surgical Prophylaxi s
Surgi brandy Prophylaxi s: Orthopaedi c
Durat ion of therapy: within 24 hours of surgery lactated Yes 1000mL at 75 Univer s ringers IV 3-08 mL/hr, ity of infusion 16:30: 1,000 mL, [place] 1,000 mL 00 IV Medical Infusion, Branch CONTINUOUS , Starting Sat06/20/20 at 1030, Until Discontinu ed, Routine, PACU LOSARTAN 0 Yes 100mg Take 100 Univ [...] [place] tablet 42 daily. Medical Branch tiZANidine 2021-0 Yes 4mg Take 4 mg Un you [...] mg by ity of tablet 16:25: mouth [place] 42 daily. Medical Branch lithium Yes 300mg Take 300 Unive rs carbonate 3-08 mg by ity of 300 mg 16:25: mouth 2 [place] capsule 42 (two) Medical times Branch daily. temazepam Yes 15mg Take 15 mg Un you 15 mg 3-08 by mouth ity of capsule 16:25: at bedtime [place] 42 as needed Medical for Branch Insomnia. ursodioL Yes 500mg Take 500 Univ ers 500 mg 3-08 mg by ity of tablet 16:25: mouth 2 [place] 42 (two) Medical times Branch daily. ondansetron Yes 4mg 4 mg, Slow Univers (ZOFRAN 3-08 IV Push, ity of (PF)) 16:19: PRN, 1 [place] injection 4 59 dose, Medical mg Starting Branch 06/20/20 at 1019, Until Discontinu ed, Routine, Nausea and Vomiting (N/V), PACU triamcinolo Yes PRN, Univer s ne 3-08 Starting ity of acetonide 14:10: Sat06/20/20 [place] (KENALOG) 00 at 0810, Medica l injection Until Branch Discontinu ed, Routine, Intra-op iohexoL Yes PRN, Univers (OMNIPAQUE 308 Starting ity o f 300-50 mL)) 14:10: Sat06/20/20 [place] injection 00 at 0810, Medica l Until Branch Discontinu ed, Routine, Intra-op bupivacaine 0 Yes PRN, Univer s (preserv 3-08 Starting ity of free) 14:10: Sat06/20/20 [place] (SENSORCAIN 00 at 0810, Medi brandy E MPF) 0.25 Until Branch % (2.5 Discontinu mg/mL) ed, injection Routine, Intra-op lidocaine 0 Yes PRN, Univers 1% 308 Starting ity of (XYLOCAINE) 14:09: Sat06/20/20 [place] 10 mg/mL (1 00 at 0809, Medi brandy %) Until Branch injection Discontinu ed, Routine, Intra-op propofoL IV 202- No Intravenou Univers infusion 3-08 03-08 s, ONCE ity of 14:05: 14:12 [...] Sat06/20/20 at 0700, Routine, DSU Pre-op LOSARTAN 2020-0 Yes 100mg Take 100 Univ ers POTASSIUM 3-08 mg by ity of (LOSARTAN 12:29: mouth [place] ORAL) 33 daily. Medical Branch gabapentin 2020-0 Yes 300mg Take 300 Un you (NEURONTIN) 3-08 mg by ity of 300 mg 12:29: mouth 3 [place] capsule 33 (three) Medical times Branch daily. QUEtiapine 0 [...] [place] 19 times Medical daily. Branch chlordiazeP 2020-0 Yes 10mg Take 10 mg Univers OXIDE 10 mg 3-05 by mouth 3 it y of capsule 16:05: (three) [place] 19 times Medical daily. Branch chlordiazeP 2020-0 Yes 10mg Take 10 mg Univers OXIDE 10 mg 3-05 by mouth 3 it y of capsule 16:05: (three) [place] 19 times Medical daily. Branch butalbital- 2020- No 1{tbl} 1 tablet, Univers acetaminoph 05-0722 Oral, ONCE i ty of en-caff 00:15: 23:33 NOW, 1 [place] (ESGIC) 00 :00 dose, Fri Medical 50-325-40 1/22/21 at Bran ch mg tablet 1 1814, [...] mg 05/06/20 at Branch 1645, [place] metoclopram No 10mg 10 mg, Uni vers selena HCl 05-06 Slow IV ity of (REGLAN) 22:45: 21:51 Push, [place] injection 00 :00 ONCE, 1 Medical 10 mg dose, Fri Branch 05/06/20 at 1645, [place] ketorolac No 30mg 30 mg, Unive rs (TORADOL) [...] dose, 05/06/20 at 1545, [place] butalbital- Yes [id number] 1{tbl} Take 1 [facility] acetaminoph 1-22 tablet by ity of en-caff 00:00: mouth [place] 50-325-40 00 every 6 Medical mg tablet (six) Branch hours as needed for Pain (scale 7-10) or Other (headache) . butalbital- Yes [id number] 1{tbl} Take 1 Univers acetaminoph 1-22 tablet by ity of en-caff 00:00: mouth [place] 50-325-40 00 every 6 Medical mg tablet (six) Branch hours as needed for Pain (scale 7-10) or Other (headache) . butalbital- Yes [id number] 1{tbl} Take 1 [facility] acetaminoph 1-22 tablet by ity of en-caff 00:00: mouth [place] 50-325-40 00 every 6 Medical mg tablet (six) Branch hours as needed for Pain (scale 7-10) or Other (headache) . butalbital- Yes [id number] 1{tbl} Take 1 [facility] acetaminoph 1-22 tablet by ity of en-caff 00:00: mouth [place] 50-325-40 00 every 6 Medical mg tablet (six) Branch hours as needed for Pain (scale 7-10) or Other (headache) . butalbital- Yes [id number] 1{tbl} Take 1 [facility] acetaminoph 1-22 tablet by ity of en-caff 00:00: mouth [place] 50-325-40 00 every 6 Medical mg tablet (six) Branch hours as needed for Pain (scale 7-10) or Other (headache) . butalbital- Yes [id number] 1{tbl} Take 1 [facility] acetaminoph 1-22 tablet by ity of en-caff 00:00: mouth [place] 50-325-40 00 every 6 Medical mg tablet (six) Branch hours as needed for Pain (scale 7-10) or Other (headache) . butalbital- Yes [id number] 1{tbl} Take 1 [facility] acetaminoph 1-22 tablet by ity of en-caff 00:00: mouth [place] 50-325-40 00 every 6 Medical mg tablet (six) Branch hours as needed for Pain (scale 7-10) or Other (headache) . butalbital- Yes [id number] 1{tbl} Take 1 [facility] acetaminoph 1-22 tablet by ity of en-caff 00:00: mouth [place] 50-325-40 00 every 6 Medical mg tablet (six) Branch hours as needed for Pain (scale 7-10) or Other (headache) . butalbital- Yes [id number] 1{tbl} Take 1 [facility] acetaminoph 1-22 tablet by ity of en-caff 00:00: mouth [place] 50-325-40 00 every 6 Medical mg tablet (six) Branch hours as needed for Pain (scale 7-10) or Other (headache) . butalbital- Yes [id number] 1{tbl} Take 1 [facility] acetaminoph 1-22 tablet by ity of en-caff 00:00: mouth [place] 50-325-40 00 every 6 Medical mg tablet (six) Branch hours as needed for Pain (scale 7-10) or Other (headache) . butalbital- Yes [id number] 1{tbl} Take 1 [facility] acetaminoph 1-22 tablet by ity of en-caff 00:00: mouth [place] 50-325-40 00 every 6 Medical mg tablet (six) Branch hours as needed for Pain (scale 7-10) or Other (headache) . butalbital Yes [id number] 1{tbl} Take 1 [facility] acetaminoph 1-22 tablet by ity of en-caff 00:00: mouth [place] 50-325-40 00 every 6 Medical mg tablet (six) Branch hours as needed for Pain (scale 7-10) or Other (headache) . butalbital Yes [id number] 1{tbl} Take 1 [facility] acetaminoph 1-22 tablet by ity of en-caff 00:00: mouth [place] 50-325-40 00 every 6 Medical mg tablet (six) Branch hours as needed for Pain (scale 7-10) or Other (headache) . butalbital- 2020- No [id number] 1{tbl} Take 1 [facility] acetaminoph 1-22 04-05 tablet by it y of en-caff 00:00: 00:00 mouth [place] 50-325-40 00 :00 every 6 Medical mg tablet (six) Branch hours as needed for Pain (scale 7-10) or Other (headache) . butalbital- 2020- No [id number] 1{tbl} Take 1 [facility] acetaminoph 1-22 04-05 [...] of 350 06:15: 06:07 s, ONCE, 1 [place] BULK-100 00 :00 dose, Sat Medica l mL) 03/26/20 Branch injection at 0015, 120 mL Routine morpHINE 2019-04- No 4mg 4 mg, Slow Un you injection 4 05-27 IV Push, ity of mg 06:15: 05:09 ONCE, 1 [place] 00 :00 dose, Sat Medical 03/26/20 Branch [...] 4 mg, Slow Un you injection 4 2-12 12-12 IV Push, ity of mg 04:45: 03:40 ONCE, 1 [place] 00 :00 dose, Fri Medical 03/25/20 Branch [...] Indication s: acute pain erythromyci 2019-04- No [id number] .5[in_u Place 0.5 [facility] n 5 mg/gram 05-27 [id number] s] Inches in ity of (0.5 %) [...] 10 (two) Medical times Branch daily. LOSARTAN 2020 Yes 100mg Take 100 Univ ers POTASSIUM 0-26 mg by ity of (LOSARTAN 21:14: mouth [place] ORAL) 10 daily. Medical Branch gabapentin 2020 Yes 300mg Take 300 Un you (NEURONTIN) [...] 10 (two) Medical times Branch daily. LOSARTAN 2020 Yes 100mg Take 100 Univ ers POTASSIUM [...] Branch at 0845, Routine amLODIPine 2019-04 Yes [id number] 10mg Take 1 [facility] 10 mg 0-26 tablet by ity of tablet 00:00: mouth [place] 00 daily. Medical Branch hydrALAZINE 2019-04 Yes [id number] 50mg Take 1 [facility] 50 mg 0-26 tablet by ity of tablet 00:00: mouth [place] 00 every 8 Medical (eight) Branch hours. aspirin 81 2019-04 Yes [id number] 81mg Take 1 [facility] mg chewable 0-26 tablet by ity of tablet 00:00: mouth [place] 00 daily. Medical Branch amLODIPine 2019-04 Yes [id number] 10mg Take 1 [facility] 10 mg 0-26 tablet by ity of tablet 00:00: mouth [place] 00 daily. Medical Branch hydrALAZINE 2019-04 Yes [id number] 50mg Take 1 [facility] 50 mg 0-26 tablet by ity of tablet 00:00: mouth [place] 00 every 8 Medical (eight) Branch hours. aspirin 81 2019-04 Yes [id number] 81mg Take 1 [facility] mg chewable 0-26 tablet by ity of tablet 00:00: mouth [place] 00 daily. Medical Branch amLODIPine 2019-04 Yes [id number] 10mg Take 1 [facility] 10 mg 0-26 tablet by ity of tablet 00:00: mouth [place] 00 daily. Medical Branch hydrALAZINE 2019-04 Yes [id number] 50mg Take 1 [facility] 50 mg 0-26 tablet by ity of tablet 00:00: mouth [place] 00 every 8 Medical (eight) Branch hours. aspirin 81 2019-04 Yes [id number] 81mg Take 1 [facility] mg chewable 0-26 tablet by ity of tablet 00:00: mouth [place] 00 daily. Medical Branch amLODIPine 2019- Yes [id number] 10mg Take 1 [facility] 10 mg 0-26 tablet by ity of tablet 00:00: mouth [place] 00 daily. Medical Branch hydrALAZINE 2019- Yes [id number] 50mg Take 1 [facility] 50 mg 0-26 tablet by ity of tablet 00:00: mouth [place] 00 every 8 Medical (eight) Branch hours. aspirin 81 2019- Yes [id number] 81mg Take 1 [facility] mg chewable 0-26 tablet by ity of tablet 00:00: mouth [place] 00 daily. Medical Branch amLODIPine 2019- Yes [id number] 10mg Take 1 [facility] 10 mg 0-26 tablet by ity of tablet 00:00: mouth [place] 00 daily. Medical Branch hydrALAZINE 2019- Yes [id number] 50mg Take 1 [facility] 50 mg 0-26 tablet by ity of tablet 00:00: mouth [place] 00 every 8 Medical (eight) Branch hours. aspirin 81 2019-04 Yes [id number] 81mg Take 1 [facility] mg chewable 0-26 tablet by ity of tablet 00:00: mouth [place] 00 daily. Medical Branch amLODIPine 2019-04 Yes [id number] 10mg Take 1 [facility] 10 mg 0-26 tablet by ity of tablet 00:00: mouth [place] 00 daily. Medical Branch hydrALAZINE 2019- Yes [id number] 50mg Take 1 [facility] 50 mg 0-26 tablet by ity of tablet 00:00: mouth [place] 00 every 8 Medical (eight) Branch hours. aspirin 81 2019- Yes [id number] 81mg Take 1 [facility] mg chewable 0-26 tablet by ity of tablet 00:00: mouth [place] 00 daily. Medical Branch amLODIPine 2019- Yes [id number] 10mg Take 1 [facility] 10 mg 0-26 tablet by ity of tablet 00:00: mouth [place] 00 daily. Medical Branch hydrALAZINE 2019- Yes [id number] 50mg Take 1 [facility] 50 mg 0-26 tablet by ity of tablet 00:00: mouth [place] 00 every 8 Medical (eight) Branch hours. aspirin 81 2019- Yes [id number] 81mg Take 1 [facility] mg chewable 0-26 tablet by ity of tablet 00:00: mouth [place] 00 daily. Medical Branch amLODIPine 2019- Yes [id number] 10mg Take 1 [facility] 10 mg 0-26 tablet by ity of tablet 00:00: mouth [place] 00 daily. Medical Branch hydrALAZINE 2019- Yes [id number] 50mg Take 1 [facility] 50 mg 0-26 tablet by ity of tablet 00:00: mouth [place] 00 every 8 Medical (eight) Branch hours. aspirin 81 2019-04 Yes [id number] 81mg Take 1 [facility] mg chewable 0-26 tablet by ity of tablet 00:00: mouth [place] 00 daily. Medical Branch amLODIPine 2019-04 Yes [id number] 10mg Take 1 [facility] 10 mg 0-26 tablet by ity of tablet 00:00: mouth [place] 00 daily. Medical Branch hydrALAZINE 2019-04 Yes [id number] 50mg Take 1 [facility] 50 mg 0-26 tablet by ity of tablet 00:00: mouth [place] 00 every 8 Medical (eight) Branch hours. aspirin 81 2019-04 Yes [id number] 81mg Take 1 [facility] mg chewable 0-26 tablet by ity of tablet 00:00: mouth [place] 00 daily. Medical Branch amLODIPine 2019-04 Yes [id number] 10mg Take 1 [facility] 10 mg 0-26 tablet by ity of tablet 00:00: mouth [place] 00 daily. Medical Branch hydrALAZINE 2019-04 Yes [id number] 50mg Take 1 [facility] 50 mg 0-26 tablet by ity of tablet 00:00: mouth [place] 00 every 8 Medical (eight) Branch hours. aspirin 81 2019-04 Yes [id number] 81mg Take 1 [facility] mg chewable 0-26 tablet by ity of tablet 00:00: mouth [place] 00 daily. Medical Branch amLODIPine 2019-04 Yes [id number] 10mg Take 1 [facility] 10 mg 0-26 tablet by ity of tablet 00:00: mouth [place] 00 daily. Medical Branch hydrALAZINE 2019-04 Yes [id number] 50mg Take 1 [facility] 50 mg 0-26 tablet by ity of tablet 00:00: mouth [place] 00 every 8 Medical (eight) Branch hours. aspirin 81 2019-04 Yes [id number] 81mg Take 1 [facility] mg chewable 0-26 tablet by ity of tablet 00:00: mouth [place] 00 daily. Medical Branch amLODIPine 2019- Yes [id number] 10mg Take 1 [facility] 10 mg 0-26 tablet by ity of tablet 00:00: mouth [place] 00 daily. Medical Branch hydrALAZINE 2019- Yes [id number] 50mg Take 1 [facility] 50 mg 0-26 tablet by ity of tablet 00:00: mouth [place] 00 every 8 Medical (eight) Branch hours. aspirin 81 2019- Yes [id number] 81mg Take 1 [facility] mg chewable 0-26 tablet by ity of tablet 00:00: mouth [place] 00 daily. Medical Branch amLODIPine 2019- Yes [id number] 10mg Take 1 [facility] 10 mg 0-26 tablet by ity of tablet 00:00: mouth [place] 00 daily. Medical Branch hydrALAZINE 2019-04 Yes [id number] 50mg Take 1 [facility] 50 mg 0-26 tablet by ity of tablet 00:00: mouth [place] 00 every 8 Medical (eight) Branch hours. aspirin 81 2019-04 Yes [id number] 81mg Take 1 [facility] mg chewable 0-26 tablet by ity of tablet 00:00: mouth [place] 00 daily. Medical Branch amLODIPine 2019-04 Yes [id number] 10mg Take 1 [facility] 10 mg 0-26 tablet by ity of tablet 00:00: mouth [place] 00 daily. Medical Branch hydrALAZINE 2019-04 Yes [id number] 50mg Take 1 [facility] 50 mg 0-26 tablet by ity of tablet 00:00: mouth [place] 00 every 8 Medical (eight) Branch hours. aspirin 81 2019-04 Yes [id number] 81mg Take 1 [facility] mg chewable 0-26 tablet by ity of tablet 00:00: mouth [place] 00 daily. Medical Branch amLODIPine 2019-04 Yes [id number] 10mg Take 1 [facility] 10 mg 0-26 tablet by ity of tablet 00:00: mouth [place] 00 daily. Medical Branch hydrALAZINE 2019- Yes [id number] 50mg Take 1 [facility] 50 mg 0-26 tablet by ity of tablet 00:00: mouth [place] 00 every 8 Medical (eight) Branch hours. aspirin 81 2019-04 Yes [id number] 81mg Take 1 [facility] mg chewable 0-26 tablet by ity of tablet 00:00: mouth [place] 00 daily. Medical Branch amLODIPine 2019-04 Yes [id number] 10mg Take 1 [facility] 10 mg 0-26 tablet by ity of tablet 00:00: mouth [place] 00 daily. Medical Branch hydrALAZINE 2019-04 Yes [id number] 50mg Take 1 [facility] 50 mg 0-26 tablet by ity of tablet 00:00: mouth [place] 00 every 8 Medical (eight) Branch hours. aspirin 81 2019-04 Yes [id number] 81mg Take 1 [facility] mg chewable 0-26 tablet by ity of tablet 00:00: mouth [place] 00 daily. Medical Branch amLODIPine 2019-04 Yes [id number] 10mg Take 1 [facility] 10 mg 0-26 tablet by ity of tablet 00:00: mouth [place] 00 daily. Medical Branch hydrALAZINE 2019-04 Yes [id number] 50mg Take 1 [facility] 50 mg 0-26 tablet by ity of tablet 00:00: mouth [place] 00 every 8 Medical (eight) Branch hours. aspirin 81 2019-04 Yes [id number] 81mg Take 1 [facility] mg chewable 0-26 tablet by ity of tablet 00:00: mouth [place] 00 daily. Medical Branch amLODIPine 2019-04 Yes [id number] 10mg Take 1 [facility] 10 mg 0-26 tablet by ity of tablet 00:00: mouth [place] 00 daily. Medical Branch hydrALAZINE 2019-04 Yes [id number] 50mg Take 1 [facility] 50 mg 0-26 tablet by ity of tablet 00:00: mouth [place] 00 every 8 Medical (eight) Branch hours. aspirin 81 2019-04 Yes [id number] 81mg Take 1 [facility] mg chewable 0-26 tablet by ity of tablet 00:00: mouth [place] 00 daily. Medical Branch amLODIPine 2019-04- No [id number] 10mg Take 1 [facility] 10 mg 0-26 04-05 tablet by ity of tablet 00:00: 00:00 mouth [place] 00 :00 daily. Medical Branch hydrALAZINE 2019-04- No [id number] 50mg Take 1 [facility] 50 mg 0-26 04-05 tablet by ity of tablet 00:00: 00:00 mouth [place] 00 :00 every 8 Medical (eight) Branch hours. aspirin 81 2019-04- No [id number] 81mg Take 1 [facility] mg chewable 0-26 04-05 tablet by it y of tablet 00:00: 00:00 mouth [place] 00 :00 daily. Medical Branch amLODIPine 2019-04- No [id number] 10mg Take 1 [facility] 10 mg 0-26 04-05 tablet by ity of tablet 00:00: 00:00 mouth [place] 00 :00 daily. Medical Branch hydrALAZINE 2019-04- No [id number] 50mg Take 1 [facility] 50 mg 0-26 04-05 tablet by ity of tablet 00:00: 00:00 mouth [place] 00 :00 every 8 Medical (eight) Branch hours. aspirin 81 2019-04- No [id number] 81mg Take 1 [facility] mg chewable 0-26 [...] 1 [place] mg 00 :00 dose, Fri Medical 02/05/20 Branch at 1200, Routine lipase-prot [...] ONCE, 1 [place] 00 :[place] dose, [facility] 02/04/20 Branch at 1730, Routine ondansetron 2019-04 Yes 4mg 4 mg, Unive rs (ZOFRAN) 0 Oral, ity of tablet 4 mg 21:25: Q6HPRN, [place] 39 Starting Medical [facility] 02/04/20 at 1625, Until Discontinu ed, Routine, Nausea and Vomiting (N/V) ondansetron 2019-04 2020- No 4mg 4 mg, Slow Univers (ZOFRAN 02-03 IV Push, ity of (PF)) 15:15: 21:26 Q8HPRN, [place] injection 4 54 :52 Starting Medi brandy mg [facility] 02/04/20 at 1015, Until [facility] 02/04/20 at 1626, Routine, Nausea and Vomiting (N/V) LORazepam 2019-04 No 1mg 1 mg, Univer s (ATIVAN) 02-03 Oral, ity of tablet 1 mg 14:30: 23:16 ONCE, 1 [place] 00 :00 dose, [facility] 02/04/20 Branch at 0930, Routine enoxaparin 2019-04 Yes 40mg 40 mg, Unive rs (LOVENOX) Subcutaneo ity of injection 14:00: us, DAILY, [place] 40 mg 00 First dose Medical on [facility] 02/04/20 at 0900, Until Discontinu ed, Routine divalproex 2019-04 Yes 500mg 500 mg, Uni vers (DEPAKOTE) Oral, ity of EC tablet 14:00: DAILY, [place] 500 mg 00 First dose Medical on [facility] 02/04/20 at 0900, Until Discontinu ed, Routine pantoprazol 2019-04 Yes 40mg 40 mg, Univ ers e 0- Oral, BID, ity of (PROTONIX) 13:00: First dose [place] EC tablet 00 on [facility] 40 mg 02/04/20 Branch at 0800, Until Discontinu ed, Routine lactulose 2019-04 Yes 15mL 15 mL, Univer s (CEPHULAC) 0 Oral, BID, ity of solution 15 13:00: First dose [place] mL 00 (after Medical last Branch modificati on) on [place] 02/04/20 at 0800, Until Discontinu ed, Routine traMADoL 2019-04 Yes 50mg 50 mg, Univers (ULTRAM) 0-22 Oral, ity of tablet 50 03:22: Q8HPRN, [place] mg 09 Starting Medical [facility] Branch 02/03/20 at 2222, Until Discontinu ed, Routine, Pain (scale 4-6) lactated 2019-04 2020- No 1000mL at 100 Univ ers ringers IV 0-22 10-25 mL/hr, ity of infusion 02:15: 23:20 1,000 mL, [place] 1,000 mL 00 :45 IV Medical Infusion, Branch CONTINUOUS , Starting [facility] 02/03/20 at 2115, Until [place] 02/07/20 at 1820, Routine docusate 2019-04 Yes 100mg 100 mg, Unive rs (COLACE) 0-22 Oral, ity of capsule 100 02:01: BIDPRN, [place] mg 06 Starting Medical [facility] 02/03/20 at 2101, Until Discontinu ed, Routine, Constipati on acetaminoph 2019-04 Yes 650mg 650 mg, Un you en 0-22 Oral, ity of (TYLENOL) 01:58: Q8HPRN, [place] tablet 650 47 Starting Medic al mg [facility] 02/03/20 at 205, Until Discontinu ed, Routine, Pain (scale 1-3) ondansetron 2019-04 2020- No 4mg 4 mg, Univ ers (ZOFRAN) 0- 10-22 Oral, ity of tablet 4 mg 01:52: 21:19 Q8HPRN, [place] 29 :27 Starting Medical [facility] 02/03/20 at 205, Until [place] 02/04/20 at 1619, Routine, Nausea and Vomiting (N/V) sennosides 2019-04 Yes 8.6mg 8.6 mg, Uni vers (SENOKOT) 0- Oral, ity of tablet 8.6 16:30: DAILY, [place] mg 00 First dose Medical on [facility] Branch 02/03/20 at 1130, Until Discontinu ed, Routine magnesium 2019-04 Yes 400mg 400 mg, Univ ers oxide 0-21 Oral, ity of (MAG-OX 16:30: DAILY, [place] 400) tablet 00 First dose Me dical 400 mg on Sat02/03/20 at 1130, Until Discontinu ed, Routine docusate 2019-04- No 100mg 100 mg, Univ ers (COLACE) 0-02-03 Oral, ity of capsule 100 16:30: 02:14 DAILY, [place] mg 00 :35 First dose Medical on Sat02/03/20 at 1130, Until Discontinu ed, Routine lactulose 2019-04- No 15mL 15 mL, Unive rs (CEPHULAC) 0-02-02 Oral, QID, it y of solution 15 03:30: 21:01 First dose [place] mL 00 :02 on Sat02/02/20 Branch at 2230, Until Discontinu ed, Routine [...] 2020- No 1{capsu 1 capsule, Univers ease-amylas 0-02-04 le} Oral, TID it y of e 19:15: 13:49 MEALS, [place] (PANCREAZE) 00 :19 First dose Me dical 16,800-56,8 on Tue Branch 00- 98,400 02/02/20 unit at 1415, [...] 1 [place] mg 00 :00 dose, [facility] 02/02/20 Branch at 0100, Routine D5W 0.45% 2019-04 2020- No 1000mL at 150 Uni vers NaCl [...] First dose on 02/01/20 at 1915, Until Discontinu ed
Reas on for Anti-Infec tive: Empiric Therapy for Suspected Infection< br>Empiric Therapy Site: Blood
D uration of therapy: 72 hours hydralAZINE 2019-04 Yes 10mg 10 mg, [facility] ers (APRESOLINE 0-19 Slow IV ity o f ) injection 20:45: Push, [place] 10 mg 41 Q4HPRN, Medical Starting Branch [facility] 02/01/20 at 1545, Until Discontinu ed, STAT, SBP > 180, DBP > 120
Ind ication: Hypertensi ve Emergency NaCl 0.45% 2019-04- No 1000mL at 150 Un you (1/2NS) IV 0-19 10-20 mL/hr, ity of infusion 18:45: 06:44 1,000 mL, [place] 1,000 mL 00 :00 IV Medical Infusion, Branch ONCE, 1 dose, [facility] 02/01/20 at 1345, Routine cyanocobala 2019-04- No 1000ug 1,000 mcg, Univers min 10-24 Subcutaneo ity of (VITAMIN 15:30: 14:03 us, Q24H, [place] B12) 00 :58 First dose Medical injection on [facility] Branch 1,000 mcg 02/01/20 at 1030, Until Discontinu ed, Routine NaCl 0.45% 2019-04- No 1000mL at 100 Un you (1/2NS) IV 0- 10-19 mL/hr, ity of infusion 15:30: 17:38 1,000 mL, [place] 1,000 mL 00 :01 IV Medical Infusion, Branch CONTINUOUS , Starting Sat02/01/20 at 1030, Until Sat02/01/20 at 1238, Routine enoxaparin 2019-04 No 30mg 30 mg, [facility] ers (LOVENOX) 22 Subcutaneo ity of injection 14:00: 02:09 us, DAILY, [place] 30 mg 00 :34 First dose Medical on [facility] Branch 02/01/20 at 0900, Until Discontinu ed, Routine NaCl 0.9% 2019-04- No 2000mL at 125 Uni vers (NS) IV 0- 10-19 mL/hr, IV ity of infusion 03:30: 03:17 Infusion, [place] 2,000 mL 00 :00 ONCE, 1 Medical dose, [place] Branch 01/31/20 at 2230, Routine thiamine 2019-04- No 100mg IV Univers (VITAMIN 0-01-31 Piggyback, ity of B1) 100 mg 22:30: 14:59 DAILY, 2 [place] in NaCl 00 :00 doses, Medical 0.9% (NS) First dose Bran ch piggyback on 01/31/20 at 1730, Last dose on 02/01/20 at 0900, 50 mL lactated 2019-04 [...] kg), Branch IV Infusion, ONCE, 1 dose, [place] 01/31/20 at 1045, [place] haloperidol 2019- No 2.5mg 2.5 mg, U nivers lactate 12-17 Intravenou ity o f (HALDOL) 23:45: 22:50 s, ONCE, 1 [place] injection 00 :00 dose, Fri Medic al 2.5 mg 12/18/19 at Branch 1845, STAT FENTanyl PF 2020- No 50ug 50 mcg, Un you (SUBLIMAZE 12-17 Slow IV ity o f (PF)) 23:45: 22:50 Push, [place] injection 00 :00 ONCE, 1 Medical 50 mcg dose, Fri [place] 12/18/19 at 1845, Routine iohexol 2020- No 120mL 120 mL, Unive rs (OMNIPAQUE 12-17 Intravenou it y of 350 22:01: 22:02 s, ONCE, 1 [place] BULK-100 00 :00 dose, Fri Medica l mL) 12/18/19 at Branch injection 1715, 120 mL Routine proMETHazin 2020- No 25mg 25 mg, IV Univers e 12-17 Piggyback, ity of (PHENERGAN) 21:30: 20:40 ONCE, 1 [place] 25 mg in 00 :00 dose, Fri Medica l NaCl 0.9% 12/18/19 at Branc h (NS) 50 mL 1630, 50 piggyback mL proMETHazin 2020-0 Yes [id number] 25mg Insert 1 Univers e 9-04 Suppositor ity of (PHENERGAN) 00:00: y [place] 25 mg 00 rectum Medical suppository every 4 Branc h (four) hours as needed for Nausea and Vomiting (N/V). proMETHazin 2020-0 Yes [id number] 25mg Insert 1 Univers e 9-04 Suppositor ity of (PHENERGAN) 00:00: y [place] 25 mg 00 rectum Medical suppository every 4 Branc h (four) hours as needed for Nausea and Vomiting (N/V). proMETHazin 2020-0 Yes [id number] 25mg Insert 1 Univers e 9-04 Suppositor ity of (PHENERGAN) 00:00: y [place] 25 mg 00 rectum Medical suppository every 4 Branc h (four) hours as needed for Nausea and Vomiting (N/V). proMETHazin 2020-0 Yes [id number] 25mg Insert 1 Univers e 9-04 Suppositor ity of (PHENERGAN) 00:00: y [place] 25 mg 00 rectum Medical suppository every 4 Branc h (four) hours as needed for Nausea and Vomiting (N/V). proMETHazin 2020-0 Yes [id number] 25mg Insert 1 Univers e 9-04 Suppositor ity of (PHENERGAN) 00:00: y [place] 25 mg 00 rectum Medical suppository every 4 Branc h (four) hours as needed for Nausea and Vomiting (N/V). proMETHazin 2020-0 Yes [id number] 25mg Insert 1 Univers e 9-04 Suppositor ity of (PHENERGAN) 00:00: y into [place] 25 mg 00 rectum Medical suppository every 4 Branc h (four) hours as needed for Nausea and Vomiting (N/V). proMETHazin 2020-0 Yes [id number] 25mg Insert 1 Univers e 9-04 Suppositor ity of (PHENERGAN) 00:00: y into [place] 25 mg 00 rectum Medical suppository every 4 Branc h (four) hours as needed for Nausea and Vomiting (N/V). proMETHazin 2020-0 Yes [id number] 25mg Insert 1 Univers e 9-04 Suppositor ity of (PHENERGAN) 00:00: y into [place] 25 mg 00 rectum Medical suppository every 4 Branc h (four) hours as needed for Nausea and Vomiting (N/V). proMETHazin 2020-0 Yes [id number] 25mg Insert 1 Univers e 9-04 Suppositor ity of (PHENERGAN) 00:00: y into [place] 25 mg 00 rectum Medical suppository every 4 Branc h (four) hours as needed for Nausea and Vomiting (N/V). proMETHazin 2020-0 Yes [id number] 25mg Insert 1 Univers e 9-04 Suppositor ity of (PHENERGAN) 00:00: y into [place] 25 mg 00 rectum Medical suppository every 4 Branc h (four) hours as needed for Nausea and Vomiting (N/V). proMETHazin 2020-0 Yes [id number] 25mg Insert 1 Univers e 9-04 Suppositor ity of (PHENERGAN) 00:00: y into [place] 25 mg 00 rectum Medical suppository every 4 Branc h (four) hours as needed for Nausea and Vomiting (N/V). proMETHazin 2020-0 Yes [id number] 25mg Insert 1 Univers e 9-04 Suppositor ity of (PHENERGAN) 00:00: y into [place] 25 mg 00 rectum Medical suppository every 4 Branc h (four) hours as needed for Nausea and Vomiting (N/V). proMETHazin 2020-0 Yes [id number] 25mg Insert 1 Univers e 9-04 Suppositor ity of (PHENERGAN) 00:00: y into [place] 25 mg 00 rectum Medical suppository every 4 Branc h (four) hours as needed for Nausea and Vomiting (N/V). proMETHazin 2020-0 Yes [id number] 25mg Insert 1 Univers e 9-04 Suppositor ity of (PHENERGAN) 00:00: y into [place] 25 mg 00 rectum Medical suppository every 4 Branc h (four) hours as needed for Nausea and Vomiting (N/V). proMETHazin 2020-0 Yes [id number] 25mg Insert 1 Univers e 9-04 Suppositor ity of (PHENERGAN) 00:00: y into [place] 25 mg 00 rectum Medical suppository every 4 Branc h (four) hours as needed for Nausea and Vomiting (N/V). proMETHazin 2020-0 Yes [id number] 25mg Insert 1 Univers e 9-04 Suppositor ity of (PHENERGAN) 00:00: y into [place] 25 mg 00 rectum Medical suppository every 4 Branc h (four) hours as needed for Nausea and Vomiting (N/V). proMETHazin 2020-0 Yes [id number] 25mg Insert 1 Univers e 9-04 Suppositor ity of (PHENERGAN) 00:00: y into [place] 25 mg 00 rectum Medical suppository every 4 Branc h (four) hours as needed for Nausea and Vomiting (N/V). proMETHazin 2020-0 Yes [id number] 25mg Insert 1 Univers e 9-04 Suppositor ity of (PHENERGAN) 00:00: y into [place] 25 mg 00 rectum Medical suppository every 4 Branc h (four) hours as needed for Nausea and Vomiting (N/V). proMETHazin 2020-0 Yes [id number] 25mg Insert 1 Univers e 9-04 Suppositor ity of (PHENERGAN) 00:00: y into [place] 25 mg 00 rectum Medical suppository every 4 Branc h (four) hours as needed for Nausea and Vomiting (N/V). proMETHazin 2020-0 2020- No [id number] 25mg Insert 1 Univers e 9-04 04-05 Suppositor ity of (PHENERGAN) 00:00: 00:00 y into [place] 25 mg 00 :00 rectum Medical suppository every 4 Branc h (four) hours as needed for Nausea and Vomiting (N/V). proMETHazin 2020-0 2020- No [id number] 25mg Insert 1 Univers e 9-04 04-05 Suppositor ity of (PHENERGAN) 00:00: 00:00 y into [place] 25 mg 00 :00 rectum Medical suppository every 4 Branc h (four) hours as needed for Nausea and Vomiting (N/V). Chlorhexidi Chlorhexidi 2020-0 2020- No [place] 15 ML Common ne ne 10-05 06-30 [facility] Gluconate Gluconate 00:00: 00:00 spit - [facility] 00 :00 [facility] cloNIDine 2020-0 2020- No .2mg 0.2 mg, Univ ers [...] at Branch 2315, Routine Nitrofurant 2020-0 Yes [id number] 100mg Take 1 Univers oin&Nit. 5-08 capsule by ity o f Macrocryst 00:00: mouth 2 [place] (MACROBID) 00 (two) Medical 100 mg times Branch capsule daily. benzonatate 2020-0 Yes [id number] 200mg Take 1 Univers 200 mg 5-08 capsule by ity of capsule 00:00: mouth 3 [place] 00 (three) Medical times Branch daily as needed for Cough. ondansetron 2020-0 Yes [id number] 4mg Take 1 Univers (ZOFRAN) 4 5-08 tablet by ity of mg tablet 00:00: mouth [place] 00 every 8 Medical (eight) Branch hours as needed for Nausea and Vomiting (N/V). traMADol 2020-0 Yes [id number] 50mg Take 1 Uni vers (ULTRAM) 50 5-08 tablet by ity of mg tablet 00:00: mouth [place] 00 every 6 Medical (six) Branch hours as needed for Pain (scale 7-10). albuterol 2020-0 Yes [id number] 2{puff} Inhale 2 Univers 90 5-08 Puffs ity of mcg/actuati 00:00: every 4 [place] on inhaler 00 (four) Medical hours as Branch needed for Wheezing, Shortness of Breath, Bronchospa sm or Chest tightness. benzonatate 2020-0 Yes [id number] 200mg Take 1 Univers 200 mg 5-08 capsule by ity of capsule 00:00: mouth 3 [place] 00 (three) Medical times Branch daily as needed for Cough. ondansetron 2020-0 Yes [id number] 4mg Take 1 Univers (ZOFRAN) 4 5-08 tablet by ity of mg tablet 00:00: mouth [place] 00 every 8 Medical (eight) Branch hours as needed for Nausea and Vomiting (N/V). traMADol 2020-0 Yes [id number] 50mg Take 1 Uni vers (ULTRAM) 50 5-08 tablet by ity of mg tablet 00:00: mouth [place] 00 every 6 Medical (six) Branch hours as needed for Pain (scale 7-10). albuterol 2020-0 Yes [id number] 2{puff} Inhale 2 Univers 90 5-08 Puffs ity of mcg/actuati 00:00: every 4 [place] on inhaler 00 (four) Medical hours as Branch needed for Wheezing, Shortness of Breath, Bronchospa sm or Chest tightness. benzonatate 2020-0 Yes [id number] 200mg Take 1 [facility] 200 mg 5-08 capsule by ity of capsule 00:00: mouth 3 [place] 00 (three) Medical times Branch daily as needed for Cough. ondansetron 2020-0 Yes [id number] 4mg Take 1 Univers (ZOFRAN) 4 5-08 tablet by ity of mg tablet 00:00: mouth [place] 00 every 8 Medical (eight) Branch hours as needed for Nausea and Vomiting (N/V). traMADol 2020-0 Yes [id number] 50mg Take 1 Uni vers (ULTRAM) 50 5-08 tablet by ity of mg tablet 00:00: mouth [place] 00 every 6 Medical (six) Branch hours as needed for Pain (scale 7-10). albuterol 2020-0 Yes [id number] 2{puff} Inhale 2 Univers 90 5-08 Puffs ity of mcg/actuati 00:00: every 4 [place] on inhaler 00 (four) Medical hours as Branch needed for Wheezing, Shortness of Breath, Bronchospa sm or Chest tightness. benzonatate 2020-0 Yes [id number] 200mg Take 1 [facility] 200 mg 5-08 capsule by ity of capsule 00:00: mouth 3 [place] 00 (three) Medical times Branch daily as needed for Cough. ondansetron 2020-0 Yes [id number] 4mg Take 1 [facility] (ZOFRAN) 4 5-08 tablet by ity of mg tablet 00:00: mouth [place] 00 every 8 Medical (eight) Branch hours as needed for Nausea and Vomiting (N/V). traMADol 2020-0 Yes [id number] 50mg Take 1 [facility] vers (ULTRAM) 50 5-08 tablet by ity of mg tablet 00:00: mouth [place] 00 every 6 Medical (six) Branch hours as needed for Pain (scale 7-10). albuterol 2020-0 Yes [id number] 2{puff} Inhale 2 [facility] 90 5-08 Puffs ity of mcg/actuati 00:00: every 4 [place] on inhaler 00 (four) Medical hours as Branch needed for Wheezing, Shortness of Breath, Bronchospa sm or Chest tightness. benzonatate 2020-0 Yes [id number] 200mg Take 1 [facility] 200 mg 5-08 capsule by ity of capsule 00:00: mouth 3 00 (three) Medical times Branch daily as needed for Cough. ondansetron 2020-0 Yes [id number] 4mg Take 1 [facility] (ZOFRAN) 4 5-08 tablet by ity of mg tablet 00:00: mouth [place] 00 every 8 Medical (eight) Branch hours as needed for Nausea and Vomiting (N/V). traMADol 2020-0 Yes [id number] 50mg Take 1 [facility] vers (ULTRAM) 50 5-08 tablet by ity of mg tablet 00:00: mouth [place] 00 every 6 Medical (six) Branch hours as needed for Pain (scale 7-10). albuterol 2020-0 Yes [id number] 2{puff} Inhale 2 [facility] 90 5-08 Puffs ity of mcg/actuati 00:00: every 4 [place] on inhaler 00 (four) Medical hours as Branch needed for Wheezing, Shortness of Breath, Bronchospa sm or Chest tightness. benzonatate 2020-0 Yes [id number] 200mg Take 1 [facility] 200 mg 5-08 capsule by ity of capsule 00:00: mouth 3 [place] 00 (three) Medical times Branch daily as needed for Cough. ondansetron 2020-0 Yes [id number] 4mg Take 1 [facility] (ZOFRAN) 4 5-08 tablet by ity of mg tablet 00:00: mouth [place] 00 every 8 Medical (eight) Branch hours as needed for Nausea and Vomiting (N/V). traMADol 2020-0 Yes [id number] 50mg Take 1 [facility] (ULTRAM) 50 5-08 tablet by ity of mg tablet 00:00: mouth [place] 00 every 6 Medical (six) Branch hours as needed for Pain (scale 7-10). albuterol 2020-0 Yes [id number] 2{puff} Inhale 2 [facility] 90 5-08 Puffs ity of mcg/actuati 00:00: every 4 [place] on inhaler 00 (four) Medical hours as Branch needed for Wheezing, Shortness of Breath, Bronchospa sm or Chest tightness. benzonatate 2020-0 Yes [id number] 200mg Take 1 [facility] 200 mg 5-08 capsule by ity of capsule 00:00: mouth 3 [place] 00 (three) Medical times Branch daily as needed for Cough. ondansetron 2020-0 Yes [id number] 4mg Take 1 [facility] (ZOFRAN) 4 5-08 tablet by ity of mg tablet 00:00: mouth [place] 00 every 8 Medical (eight) Branch hours as needed for Nausea and Vomiting (N/V). traMADol 2020-0 Yes [id number] 50mg Take 1 [facility] (ULTRAM) 50 5-08 tablet by ity of mg tablet 00:00: mouth [place] 00 every 6 Medical (six) Branch hours as needed for Pain (scale 7-10). albuterol 2020-0 Yes [id number] 2{puff} Inhale 2 [facility] 90 5-08 Puffs ity of mcg/actuati 00:00: every 4 [place] on inhaler 00 (four) Medical hours as Branch needed for Wheezing, Shortness of Breath, Bronchospa sm or Chest tightness. benzonatate 2020-0 Yes [id number] 200mg Take 1 [facility] 200 mg 5-08 capsule by ity of capsule 00:00: mouth 3 [place] 00 (three) Medical times Branch daily as needed for Cough. ondansetron 2020-0 Yes [id number] 4mg Take 1 [facility] (ZOFRAN) 4 5-08 tablet by ity of mg tablet 00:00: mouth [place] 00 every 8 Medical (eight) Branch hours as needed for Nausea and Vomiting (N/V). traMADol 2020-0 Yes [id number] 50mg Take 1 [facility] (ULTRAM) 50 5-08 tablet by ity of mg tablet 00:00: mouth [place] 00 every 6 Medical (six) Branch hours as needed for Pain (scale 7-10). albuterol 2020-0 Yes [id number] 2{puff} Inhale 2 [facility] 90 5-08 Puffs ity of mcg/actuati 00:00: every 4 [place] on inhaler 00 (four) Medical hours as Branch needed for Wheezing, Shortness of Breath, Bronchospa sm or Chest tightness. benzonatate 2020-0 Yes [id number] 200mg Take 1 [facility] 200 mg 5-08 capsule by ity of capsule 00:00: mouth 00 (three) Medical times Branch daily as needed for Cough. ondansetron 2020-0 Yes [id number] 4mg Take 1 [facility] (ZOFRAN) 4 5-08 tablet by ity of mg tablet 00:00: mouth [place] 00 every 8 Medical (eight) Branch hours as needed for Nausea and Vomiting (N/V). traMADol 2020-0 Yes [id number] 50mg Take 1 [facility] (ULTRAM) 50 5-08 tablet by ity of mg tablet 00:00: mouth [place] 00 every 6 Medical (six) Branch hours as needed for Pain (scale 7-10). albuterol 2020-0 Yes [id number] 2{puff} Inhale 2 [facility] 90 5-08 Puffs ity of mcg/actuati 00:00: every 4 [place] on inhaler 00 (four) Medical hours as Branch needed for Wheezing, Shortness of Breath, Bronchospa sm or Chest tightness. benzonatate 2020-0 Yes [id number] 200mg Take 1 [facility] 200 mg 5-08 capsule by ity of capsule 00:00: mouth 3 [place] 00 (three) Medical times Branch daily as needed for Cough. ondansetron 2020-0 Yes [id number] 4mg Take 1 [facility] (ZOFRAN) 4 5-08 tablet by ity of mg tablet 00:00: mouth [place] 00 every 8 Medical (eight) Branch hours as needed for Nausea and Vomiting (N/V). traMADol 2020-0 Yes [id number] 50mg Take 1 [facility] (ULTRAM) 50 5-08 tablet by ity of mg tablet 00:00: mouth [place] 00 every 6 Medical (six) Branch hours as needed for Pain (scale 7-10). albuterol 2020-0 Yes [id number] 2{puff} Inhale 2 [facility] 90 5-08 Puffs ity of mcg/actuati 00:00: every 4 [place] on inhaler 00 (four) Medical hours as Branch needed for Wheezing, Shortness of Breath, Bronchospa sm or Chest tightness. benzonatate 2020-0 Yes [id number] 200mg Take 1 [facility] 200 mg 5-08 capsule by ity of capsule 00:00: mouth 3 [place] (three) Medical times Branch daily as needed for Cough. ondansetron 2020-0 Yes [id number] 4mg Take 1 [facility] (ZOFRAN) 4 5-08 tablet by ity of mg tablet 00:00: mouth [place] 00 every 8 Medical (eight) Branch hours as needed for Nausea and Vomiting (N/V). traMADol 2020-0 Yes [id number] 50mg Take 1 [facility] (ULTRAM) 50 5-08 tablet by ity of mg tablet 00:00: mouth [place] 00 every 6 Medical (six) Branch hours as needed for Pain (scale 7-10). albuterol 2020-0 Yes [id number] 2{puff} Inhale 2 [facility] 90 5-08 Puffs ity of mcg/actuati 00:00: every 4 [place] on inhaler 00 (four) Medical hours as Branch needed for Wheezing, Shortness of Breath, Bronchospa sm or Chest tightness. benzonatate 2020-0 Yes [id number] 200mg Take 1 [facility] 200 mg 5-08 capsule by ity of capsule 00:00: mouth 3 [place] 00 (three) Medical times Branch daily as needed for Cough. ondansetron 2020-0 Yes [id number] 4mg Take 1 [facility] (ZOFRAN) 4 5-08 tablet by ity of mg tablet 00:00: mouth [place] 00 every 8 Medical (eight) Branch hours as needed for Nausea and Vomiting (N/V). traMADol 2020-0 Yes [id number] 50mg Take 1 [facility] (ULTRAM) 50 5-08 tablet by ity of mg tablet 00:00: mouth [place] 00 every 6 Medical (six) Branch hours as needed for Pain (scale 7-10). albuterol 2020-0 Yes [id number] 2{puff} Inhale 2 [facility] 90 5-08 Puffs ity of mcg/actuati 00:00: every 4 [place] on inhaler 00 (four) Medical hours as Branch needed for Wheezing, Shortness of Breath, Bronchospa sm or Chest tightness. benzonatate 2020-0 Yes [id number] 200mg Take 1 [facility] 200 mg 5-08 capsule by ity of capsule 00:00: mouth 3 [place] 00 (three) Medical times Branch daily as needed for Cough. ondansetron 2020-0 Yes [id number] 4mg Take 1 [facility] (ZOFRAN) 4 5-08 tablet by ity of mg tablet 00:00: mouth [place] 00 every 8 Medical (eight) Branch hours as needed for Nausea and Vomiting (N/V). traMADol 2020-0 Yes [id number] 50mg Take 1 [facility] (ULTRAM) 50 5-08 tablet by ity of mg tablet 00:00: mouth [place] 00 every 6 Medical (six) Branch hours as needed for Pain (scale 7-10). albuterol 2020-0 Yes [id number] 2{puff} Inhale 2 [facility] 90 5-08 Puffs ity of mcg/actuati 00:00: every 4 [place] on inhaler 00 (four) Medical hours as Branch needed for Wheezing, Shortness of Breath, Bronchospa sm or Chest tightness. benzonatate 2020-0 Yes [id number] 200mg Take 1 [facility] 200 mg 5-08 capsule by ity of capsule 00:00: mouth 3 [place] 00 (three) Medical times Branch daily as needed for Cough. ondansetron 2020-0 Yes [id number] 4mg Take 1 [facility] (ZOFRAN) 4 5-08 tablet by ity of mg tablet 00:00: mouth [place] 00 every 8 Medical (eight) Branch hours as needed for Nausea and Vomiting (N/V). traMADol 2020-0 Yes [id number] 50mg Take 1 [facility] (ULTRAM) 50 5-08 tablet by ity of mg tablet 00:00: mouth [place] 00 every 6 Medical (six) Branch hours as needed for Pain (scale 7-10). albuterol 2020-0 Yes [id number] 2{puff} Inhale 2 [facility] 90 5-08 Puffs ity of mcg/actuati 00:00: every 4 [place] on inhaler 00 (four) Medical hours as Branch needed for Wheezing, Shortness of Breath, Bronchospa sm or Chest tightness. benzonatate 2020-0 Yes [id number] 200mg Take 1 [facility] 200 mg 5-08 capsule by ity of capsule 00:00: mouth 3 [place] 00 (three) Medical times Branch daily as needed for Cough. ondansetron 2020-0 Yes [id number] 4mg Take 1 [facility] (ZOFRAN) 4 5-08 tablet by ity of mg tablet 00:00: mouth [place] 00 every 8 Medical (eight) Branch hours as needed for Nausea and Vomiting (N/V). traMADol 2020-0 Yes [id number] 50mg Take 1 [facility] (ULTRAM) 50 5-08 tablet by ity of mg tablet 00:00: mouth [place] 00 every 6 Medical (six) Branch hours as needed for Pain (scale 7-10). albuterol 2020-0 Yes [id number] 2{puff} Inhale 2 [facility] 90 5-08 Puffs ity of mcg/actuati 00:00: every 4 [place] on inhaler 00 (four) Medical hours as Branch needed for Wheezing, Shortness of Breath, Bronchospa sm or Chest tightness. benzonatate 2020-0 Yes [id number] 200mg Take 1 [facility] 200 mg 5-08 capsule by ity of capsule 00:00: mouth 3 [place] 00 (three) Medical times Branch daily as needed for Cough. ondansetron 2020-0 Yes [id number] 4mg Take 1 [facility] (ZOFRAN) 4 5-08 tablet by ity of mg tablet 00:00: mouth [place] 00 every 8 Medical (eight) Branch hours as needed for Nausea and Vomiting (N/V). traMADol 2020-0 Yes [id number] 50mg Take 1 [facility] (ULTRAM) 50 5-08 tablet by ity of mg tablet 00:00: mouth [place] 00 every 6 Medical (six) Branch hours as needed for Pain (scale 7-10). albuterol 2020-0 Yes [id number] 2{puff} Inhale 2 [facility] 90 5-08 Puffs ity of mcg/actuati 00:00: every 4 [place] on inhaler 00 (four) Medical hours as Branch needed for Wheezing, Shortness of Breath, Bronchospa sm or Chest tightness. benzonatate 2020-0 Yes [id number] 200mg Take 1 [facility] 200 mg 5-08 capsule by ity of capsule 00:00: mouth 3 [place] 00 (three) Medical times Branch daily as needed for Cough. ondansetron 2020-0 Yes [id number] 4mg Take 1 [facility] (ZOFRAN) 4 5-08 tablet by ity of mg tablet 00:00: mouth [place] 00 every 8 Medical (eight) Branch hours as needed for Nausea and Vomiting (N/V). traMADol 2020-0 Yes [id number] 50mg Take 1 [facility] (ULTRAM) 50 5-08 tablet by ity of mg tablet 00:00: mouth [place] 00 every 6 Medical (six) Branch hours as needed for Pain (scale 7-10). albuterol 2020-0 Yes [id number] 2{puff} Inhale 2 [facility] 90 5-08 Puffs ity of mcg/actuati 00:00: every 4 [place] on inhaler 00 (four) Medical hours as Branch needed for Wheezing, Shortness of Breath, Bronchospa sm or Chest tightness. benzonatate 2020-0 Yes [id number] 200mg Take 1 [facility] 200 mg 5-08 capsule by ity of capsule 00:00: mouth 3 00 (three) Medical times Branch daily as needed for Cough. ondansetron 2020-0 Yes [id number] 4mg Take 1 [facility] (ZOFRAN) 4 5-08 tablet by ity of mg tablet 00:00: mouth [place] 00 every 8 Medical (eight) Branch hours as needed for Nausea and Vomiting (N/V). traMADol 2020-0 Yes [id number] 50mg Take 1 [facility] (ULTRAM) 50 5-08 tablet by ity of mg tablet 00:00: mouth [place] 00 every 6 Medical (six) Branch hours as needed for Pain (scale 7-10). albuterol 2020-0 Yes [id number] 2{puff} Inhale 2 [facility] 90 5-08 Puffs ity of mcg/actuati 00:00: every 4 [place] on inhaler 00 (four) Medical hours as Branch needed for Wheezing, Shortness of Breath, Bronchospa sm or Chest tightness. benzonatate 2020-0 Yes [id number] 200mg Take 1 [facility] 200 mg 5-08 capsule by ity of capsule 00:00: mouth 3 [place] 00 (three) Medical times Branch daily as needed for Cough. ondansetron 2020-0 Yes [id number] 4mg Take 1 [facility] (ZOFRAN) 4 5-08 tablet by ity of mg tablet 00:00: mouth [place] 00 every 8 Medical (eight) Branch hours as needed for Nausea and Vomiting (N/V). traMADol 2020-0 Yes [id number] 50mg Take 1 [facility] (ULTRAM) 50 5-08 tablet by ity of mg tablet 00:00: mouth [place] 00 every 6 Medical (six) Branch hours as needed for Pain (scale 7-10). albuterol 2020-0 Yes [id number] 2{puff} Inhale 2 [facility] 90 5-08 Puffs ity of mcg/actuati 00:00: every 4 [place] on inhaler 00 (four) Medical hours as Branch needed for Wheezing, Shortness of Breath, Bronchospa sm or Chest tightness. ondansetron 2020-0 Yes [id number] 4mg Take 1 [facility] (ZOFRAN) 4 5-08 tablet by ity of mg tablet 00:00: mouth [place] 00 every 8 Medical (eight) Branch hours as needed for Nausea and Vomiting (N/V). ondansetron 2020-0 Yes [id number] 4mg Take 1 [facility] (ZOFRAN) 4 5-08 tablet by ity of mg tablet 00:00: mouth [place] 00 every 8 Medical (eight) Branch hours as needed for Nausea and Vomiting (N/V). ondansetron 2020-0 Yes [id number] 4mg Take 1 [facility] (ZOFRAN) 4 5-08 tablet by ity of mg tablet 00:00: mouth [place] 00 every 8 Medical (eight) Branch hours as needed for Nausea and Vomiting (N/V). ondansetron 2020-0 Yes [id number] 4mg Take 1 [facility] (ZOFRAN) 4 5-08 tablet by ity of mg tablet 00:00: mouth [place] 00 every 8 Medical (eight) Branch hours as needed for Nausea and Vomiting (N/V). Nitrofurant 2020-0 Yes [id number] 100mg Take 1 [facility] oin&Nit. 5-08 capsule by ity o f Macrocryst 00:00: mouth 2 [place] (MACROBID) 00 (two) Medical 100 mg times Branch capsule daily. benzonatate Yes [id number] 200mg Take 1 [facility] 200 mg 5-08 capsule by ity of capsule 00:00: mouth 3 [place] 00 (three) Medical times Branch daily as needed for Cough. ondansetron Yes [id number] 4mg Take 1 [facility] (ZOFRAN) 4 5-08 tablet by ity of mg tablet 00:00: mouth [place] 00 every 8 Medical (eight) Branch hours as needed for Nausea and Vomiting (N/V). traMADol Yes [id number] 50mg Take 1 [facility] (ULTRAM) 50 5-08 tablet by ity of mg tablet 00:00: mouth [place] 00 every 6 Medical (six) Branch hours as needed for Pain (scale 7-10). albuterol Yes [id number] 2{puff} Inhale 2 [facility] 90 5-08 Puffs ity of mcg/actuati 00:00: every 4 [place] on inhaler 00 (four) Medical hours as Branch needed for Wheezing, Shortness of Breath, Bronchospa sm or Chest tightness. ondansetron 2020- No [id number] 4mg Take 1 [facility] (ZOFRAN) 4 5-08 06-30 tablet by ity of mg tablet 00:00: 00:00 mouth [place] 00 :00 every 8 Medical (eight) Branch hours as needed for Nausea and Vomiting (N/V). benzonatate 2020- No [id number] 200mg Take 1 [facility] 200 mg 5-08 04-05 capsule by ity of capsule 00:00: 00:00 mouth 3 [place] 00 :00 (three) Medical times Branch daily as needed for Cough. traMADol 2020- No [id number] 50mg Take 1 [facility] you (ULTRAM) 50 5-08 04-05 tablet by it y of mg tablet 00:00: 00:00 mouth [place] 00 :00 every 6 Medical (six) Branch hours as needed for Pain (scale 7-10). albuterol 2020- No [id number] 2{puff} Inhale 2 [facility] 90 5-08 04-05 Puffs ity of mcg/actuati 00:00: 00:00 every 4 [place] on inhaler 00 :00 (four) Medical hours as Branch needed for Wheezing, Shortness of Breath, Bronchospa sm or Chest tightness. benzonatate 2020- No [id number] 200mg Take 1 [facility] 200 mg 5-08 04-05 capsule by ity of capsule 00:00: 00:00 mouth 3 [place] 00 :00 (three) Medical times Branch daily as needed for Cough. traMADol 2020- No [id number] 50mg Take 1 Un you (ULTRAM) 50 5-08 04-05 tablet by it y of mg tablet 00:00: 00:00 mouth [place] 00 :00 every 6 Medical (six) Branch hours as needed for Pain (scale 7-10). albuterol 2020- No [id number] 2{puff} Inhale 2 [facility] 90 5-08 04-05 Puffs ity of mcg/actuati 00:00: 00:00 every 4 [place] on inhaler 00 :00 (four) Medical hours as Branch needed for Wheezing, Shortness of Breath, Bronchospa sm or Chest tightness. Nitrofurant 2019- No [id number] 100mg Take 1 [facility] oin&Nit. 08-20-26 capsule by ity of Macrocryst 00:00: 00:00 mouth 2 [place] (MACROBID) 00 :00 (two) Medical 100 mg times Branch capsule daily. HYDROcodone 2019- No 1{tbl} 1 tablet, [facility] -acetaminop 06-25 Oral, ONCE i ty of hen (NORCO) 01:15: 00:22 NOW, 1 [place] 10-325 mg 00 :00 dose, [place] Medic al tablet 1 06/25/19 at [facility] h tablet 2014, [place] dicyclomine 2019- Yes 20mg 20 mg, Univ ers (BENTYL) 06-25 Intramuscu ity o f injection 01:00: lar, QID, [place] 20 mg 00 First dose Medical on [place] Branch 06/25/19 at 2000, Until Discontinu ed, [place] hydralAZINE 2019- No 20mg 20 mg, Uni vers (APRESOLINE 06-25 Intravenou i ty of ) injection 00:45: 00:10 s, ONCE [place] 20 mg 00 :00 NOW, 1 Medical dose, [facility] 06/25/19 at 1945, [place] metoclopram 2019- No 10mg 10 mg, Uni vers selena HCl 06-24 Slow IV ity of (REGLAN) 23:45: 22:48 Push, [place] injection 00 :00 ONCE, 1 Medical 10 mg dose, [facility] 06/25/19 at 1845, [place] ketorolac 2019- No 30mg 30 mg, Unive rs (TORADOL) 06-24 Slow IV ity of injection 23:45: 22:49 Push, [place] 30 mg 00 :00 ONCE, 1 Medical dose, [facility] 06/25/19 at 1845, [place]
Fa culty member approving Restricted medication : KIRSTIN RON NaCl 0.9% 2019- No 1000mL at 999 Uni vers (NS) bolus 06-24 mL/hr, ity of infusion 22:45: 01:01 1,000 mL, [place] 1,000 mL 00 :00 IV Medical Infusion, [place] ONCE, 1 dose, [facility] 06/25/19 at 1745, [place] maalox:diph 2019- No 15mL 15 mL, Uni vers enhydrAMINE 06-24 Oral, ity of :lidocaine 22:45: 22:52 ONCE, 1 [place] 2 % viscous 00 :00 dose, [place] Med ical 1:1:1 06/25/19 at [place] (FIRST-MOUT 174, [place] HWASH BLM) oral suspension 15 mL morpHINE 2019- No 4mg 4 mg, Slow Un you injection 4 06-19 IV Push, ity of mg 01:00: 00:10 ONCE, 1 [place] 00 :00 dose, Fri Medical 06/19/19 at Branch 1900, STAT maalox:diph 2019-0 2020- No 15mL 15 mL, Uni vers enhydrAMINE 06-19 Oral, ity of :lidocaine 01:00: 00:10 ONCE, 1 [place] 2 % viscous 00 :00 dose, Fri Med ical 1:1:1 06/19/19 at [place] (FIRST-MOUT 1900, HWASH BLM) Routine oral suspension 15 mL famotidine 2019-0 2020- No 20mg 20 mg, Univ ers (PEPCID 06-18-06 Slow IV ity of (PF)) 22:30: 21:40 Push, [place] injection 00 :00 ONCE, 1 Medical 20 mg dose, Fri Branch 06/19/19 at 1630, [place] proMETHazin 2019-0 2020- No 12.5mg 12.5 mg, Univers e 06-18-06 IV ity of (PHENERGAN) 22:30: 21:40 Piggyback, [...] 1,000 mL 00 :00 IV Medical Infusion, [place] ONCE, 1 dose, 06/19/19 at 1530, [place] ondansetron 2020-0 Yes [id number] 8mg Take 2 [facility] 4 mg 3-06 tablets by ity of disintegrat 00:00: mouth [place] ing tablet 00 every 8 Medica l (eight) Branch hours as needed for Nausea and Vomiting (N/V). ondansetron 2020-0 Yes [id number] 8mg Take 2 [facility] 4 mg 3-06 tablets by ity of disintegrat 00:00: mouth [place] ing tablet 00 every 8 Medica l (eight) Branch hours as needed for Nausea and Vomiting (N/V). ondansetron 2020-0 Yes [id number] 8mg Take 2 [facility] 4 mg 3-06 tablets by ity of disintegrat 00:00: mouth [place] ing tablet 00 every 8 Medica l (eight) Branch hours as needed for Nausea and Vomiting (N/V). ondansetron 2020-0 Yes [id number] 8mg Take 2 [facility] 4 mg 3-06 tablets by ity of disintegrat 00:00: mouth [place] ing tablet 00 every 8 Medica l (eight) Branch hours as needed for Nausea and Vomiting (N/V). ondansetron 2020-0 2020- No [id number] 8mg Take 2 [facility] 4 mg 3-06 10-26 tablets by ity of disintegrat 00:00: 00:00 mouth [place] ing tablet 00 :00 every 8 Medica l (eight) Branch hours as needed for Nausea and Vomiting (N/V). famotidine 2020-0 2020- No [id number] 40mg Take 1 [facility] (PEPCID) 40 3-06 04-06 tablet by it y of mg tablet 00:00: 04:59 mouth [place] 00 :00 daily for Medical 30 days. [place] famotidine 2020-0 2020- No [id number] 40mg Take 1 [facility] (PEPCID) 40 3-06 04-06 tablet by it y of mg tablet 00:00: 04:59 mouth [place] 00 :00 daily for Medical 30 days. [place] morpHINE 2020-0 2020- No 4mg 4 mg, Slow Un you injection 4 05-20-05 IV Push, ity of mg 04:15: 03:09 ONCE, 1 [place] 00 :00 dose, [facility] 05/19/19 at [place] 2215, STAT iohexol 2020-0 2020- No 120mL 120 mL, Unive rs (OMNIPAQUE 2- 02-05 Intravenou it y of 350 02:15: 02:15 s, ONCE, 1 [place] BULK-150 00 :00 dose, Tue Medica l mL) 05/19/19 at [place] injection 2014, 120 mL Routine ondansetron 2020-0 2020- No 4mg 4 mg, Slow Univers (ZOFRAN 2- 02-05 IV Push, ity of (PF)) 02:15: 01:25 ONCE, 1 [place] injection 4 00 :00 dose, Tue Med ical mg 05/19/19 at [place] 2014, Routine morpHINE 2020-0 2020- No 4mg 4 mg, Slow Un you injection 4 - 02-05 IV Push, ity of mg 02:15: 01:25 ONCE, 1 [place] 00 :00 dose, e Medical 05/19/19 at Branch 2015, STAT traMADol 2020-0 Yes [id number] 100mg Take 1 Un you 100 mg 24 2-04 tablet by ity o f hr tablet 00:00: mouth [place] 00 daily. Medical Branch ondansetron 2020-0 Yes [id number] 4mg Take 1 [facility] 4 mg 2-04 tablet by ity of disintegrat 00:00: mouth [place] ing tablet 00 every 8 Medica l (eight) Branch hours as needed for Nausea and Vomiting (N/V). ondansetron 2020-0 Yes [id number] 4mg Take 1 [facility] 4 mg 2-04 tablet by ity of disintegrat 00:00: mouth [place] ing tablet 00 every 8 Medica l (eight) Branch hours as needed for Nausea and Vomiting (N/V). ondansetron 2020-0 Yes [id number] 4mg Take 1 [facility] 4 mg 2-04 tablet by ity of disintegrat 00:00: mouth [place] ing tablet 00 every 8 Medica l (eight) Branch hours as needed for Nausea and Vomiting (N/V). ondansetron 2020-0 Yes [id number] 4mg Take 1 [facility] 4 mg 2-04 tablet by ity of disintegrat 00:00: mouth [place] ing tablet 00 every 8 Medica l (eight) Branch hours as needed for Nausea and Vomiting (N/V). ondansetron 2020-0 Yes [id number] 4mg Take 1 [facility] 4 mg 2-04 tablet by ity of disintegrat 00:00: mouth [place] ing tablet 00 every 8 Medica l (eight) Branch hours as needed for Nausea and Vomiting (N/V). ondansetron 2020-0 Yes [id number] 4mg Take 1 [facility] 4 mg 2-04 tablet by ity of disintegrat 00:00: mouth [place] ing tablet 00 every 8 Medica l (eight) Branch hours as needed for Nausea and Vomiting (N/V). ondansetron 2020-0 Yes [id number] 4mg Take 1 [facility] 4 mg 2-04 tablet by ity of disintegrat 00:00: mouth [place] ing tablet 00 every 8 Medica l (eight) Branch hours as needed for Nausea and Vomiting (N/V). ondansetron 2020-0 Yes [id number] 4mg Take 1 [facility] 4 mg 2-04 tablet by ity of disintegrat 00:00: mouth [place] ing tablet 00 every 8 Medica l (eight) Branch hours as needed for Nausea and Vomiting (N/V). ondansetron 2020-0 Yes [id number] 4mg Take 1 [facility] 4 mg 2-04 tablet by ity of disintegrat 00:00: mouth [place] ing tablet 00 every 8 Medica l (eight) Branch hours as needed for Nausea and Vomiting (N/V). ondansetron 2020-0 Yes [id number] 4mg Take 1 [facility] 4 mg 2-04 tablet by ity of disintegrat 00:00: mouth [place] ing tablet 00 every 8 Medica l (eight) Branch hours as needed for Nausea and Vomiting (N/V). ondansetron 2020-0 Yes [id number] 4mg Take 1 [facility] 4 mg 2-04 tablet by ity of disintegrat 00:00: mouth [place] ing tablet 00 every 8 Medica l (eight) Branch hours as needed for Nausea and Vomiting (N/V). ondansetron 2020-0 Yes [id number] 4mg Take 1 [facility] 4 mg 2-04 tablet by ity of disintegrat 00:00: mouth [place] ing tablet 00 every 8 Medica l (eight) Branch hours as needed for Nausea and Vomiting (N/V). ondansetron 2020-0 Yes [id number] 4mg Take 1 [facility] 4 mg 2-04 tablet by ity of disintegrat 00:00: mouth [place] ing tablet 00 every 8 Medica l (eight) Branch hours as needed for Nausea and Vomiting (N/V). ondansetron 2020-0 Yes [id number] 4mg Take 1 [facility] 4 mg 2-04 tablet by ity of disintegrat 00:00: mouth [place] ing tablet 00 every 8 Medica l (eight) Branch hours as needed for Nausea and Vomiting (N/V). ondansetron 2020-0 Yes [id number] 4mg Take 1 [facility] 4 mg 2-04 tablet by ity of disintegrat 00:00: mouth [place] ing tablet 00 every 8 Medica l (eight) Branch hours as needed for Nausea and Vomiting (N/V). ondansetron 2020-0 Yes [id number] 4mg Take 1 [facility] 4 mg 2-04 tablet by ity of disintegrat 00:00: mouth [place] ing tablet 00 every 8 Medica l (eight) Branch hours as needed for Nausea and Vomiting (N/V). ondansetron 2020-0 Yes [id number] 4mg Take 1 [facility] 4 mg 2-04 tablet by ity of disintegrat 00:00: mouth [place] ing tablet 00 every 8 Medica l (eight) Branch hours as needed for Nausea and Vomiting (N/V). ondansetron 2020-0 Yes [id number] 4mg Take 1 [facility] 4 mg 2-04 tablet by [facility] disintegrat 00:00: mouth [place] ing tablet 00 every 8 Medica l (eight) Branch hours as needed for Nausea and Vomiting (N/V). ondansetron 2020-0 Yes [id number] 4mg Take 1 [facility] 4 mg 2-04 tablet by [facility] of disintegrat 00:00: mouth [place] ing tablet 00 every 8 Medica l (eight) Branch hours as needed for Nausea and Vomiting (N/V). traMADol 2020-0 Yes [id number] 100mg Take 1 [facility] 100 mg 24 2-04 tablet by ity o f hr tablet 00:00: mouth [place] 00 daily. Medical Branch ondansetron 2020-0 Yes [id number] 4mg Take 1 [facility] 4 mg 2-04 tablet by [facility] of disintegrat 00:00: mouth [place] ing tablet 00 every 8 Medica l (eight) Branch hours as needed for Nausea and Vomiting (N/V). traMADol 2020-0 Yes [id number] 100mg Take 1 [facility] 100 mg 24 2-04 tablet by ity o f hr tablet 00:00: mouth [place] 00 daily. Medical Branch ondansetron 2020-0 Yes [id number] 4mg Take 1 [facility] 4 mg 2-04 tablet by [facility] of disintegrat 00:00: mouth [place] ing tablet 00 every 8 Medica l (eight) Branch hours as needed for Nausea and Vomiting (N/V). traMADol 2020-0 Yes [id number] 100mg Take 1 [facility] 100 mg 24 2-04 tablet by ity o f hr tablet 00:00: mouth [place] 00 daily. Medical Branch ondansetron 2020-0 Yes [id number] 4mg Take 1 [facility] 4 mg 2-04 tablet by [facility] of disintegrat 00:00: mouth [place] ing tablet 00 every 8 Medica l (eight) Branch hours as needed for Nausea and Vomiting (N/V). traMADol 2020-0 Yes [id number] 100mg Take 1 [facility] 100 mg 24 2-04 tablet by ity o f hr tablet 00:00: mouth [place] 00 daily. Medical Branch ondansetron Yes [id number] 4mg Take 1 [facility] 4 mg 2-04 tablet by [facility] of disintegrat 00:00: mouth [place] ing tablet 00 every 8 Medica l (eight) Branch hours as needed for Nausea and Vomiting (N/V). traMADol 2019-0 Yes [id number] 100mg Take 1 [facility] 100 mg 24 2-04 tablet by [facility] o f hr tablet 00:00: mouth [place] 00 daily. Medical [facility] ondansetron Yes [id number] 4mg Take 1 [facility] 4 mg 2-04 tablet by [facility] of disintegrat 00:00: mouth [place] ing tablet 00 every 8 Medica l (eight) Branch hours as needed for Nausea and Vomiting (N/V). ondansetron 2020- No [id number] 4mg Take 1 [facility] 4 mg 2-04 04-05 tablet by [facility] disintegrat 00:00: 00:00 mouth [place] tablet 00 :00 every 8 [facility] l (eight) Branch hours as needed for Nausea and Vomiting (N/V). ondansetron 2020- No [id number] 4mg Take 1 [facility] 4 mg 2-04 04-05 tablet by [facility] disintegrat 00:00: 00:[place] mouth [place] tablet 00 :00 every 8 [facility]ica l (eight) Branch hours as needed for Nausea and Vomiting (N/V). traMADol 2019- No [id number] 100mg Take 1 [facility] 100 mg [...] 44 daily. Medical Branch ondansetron 2018-04 Yes [id number] 4mg Take 1 [facility] 4 mg tablet 0-26 tablet by ity of 00:00: mouth [place] 00 every 8 Medical (eight) Branch hours as needed for Nausea and Vomiting (N/V). ondansetron 2018-04 Yes [id number] 4mg Take 1 [facility] 4 mg tablet 0-26 tablet by ity of 00:00: mouth [place] 00 every 8 Medical (eight) Branch hours as needed for Nausea and Vomiting (N/V). ondansetron 2018-04 Yes [id number] 4mg Take 1 [facility] 4 mg tablet 0-26 tablet by ity of 00:00: mouth [place] 00 every 8 Medical (eight) Branch hours as needed for Nausea and Vomiting (N/V). ondansetron 2018-04 Yes [id number] 4mg Take 1 [facility] 4 mg tablet 0-26 tablet by ity of 00:00: mouth [place] 00 every 8 Medical (eight) Branch hours as needed for Nausea and Vomiting (N/V). ondansetron 2018-04 Yes [id number] 4mg Take 1 [facility] 4 mg tablet 0-26 tablet by ity of 00:00: mouth [place] 00 every 8 Medical (eight) Branch hours as needed for Nausea and Vomiting (N/V). ondansetron 2018-04 Yes [id number] 4mg Take 1 [facility] 4 mg tablet 0-26 tablet by ity of 00:00: mouth [place] 00 every 8 Medical (eight) Branch hours as needed for Nausea and Vomiting (N/V). ondansetron 2018-04 2020- No [id number] 4mg Take 1 [facility] 4 mg tablet 0-26 10-26 tablet by it y of 00:00: 00:00 mouth [place] 00 :00 every 8 Medical (eight) Branch hours as needed for Nausea and Vomiting (N/V). losartan Yes [id number] 100mg Take 1 [facility] 100 mg 9-23 tablet by [facility] of tablet 00:00: mouth [place] 00 daily. Medical Branch losartan 2018- Yes [id number] 100mg Take 1 [facility] 100 mg 9-23 tablet by ity of tablet 00:00: mouth [place] 00 daily. Medical Branch losartan 2018-0 Yes [id number] 100mg Take 1 [facility] 100 mg 9-23 tablet by it[facility] of tablet 00:00: mouth [place] 00 daily. Medical Branch losartan 2018-0 Yes [id number] 100mg Take 1 [facility] 100 mg 9-23 tablet by [facility]y of tablet 00:00: mouth [place] 00 daily. Medical Branch losartan 2018- Yes [id number] 100mg Take 1 [facility] 100 mg 9-23 tablet by ity of tablet 00:00: mouth [place] 00 daily. Medical Branch losartan 2019-0 Yes [id number] 100mg Take 1 [facility] 100 mg 9-23 tablet by [facility] of tablet 00:00: mouth [place] 00 daily. Medical Branch losartan 2019-0 Yes [id number] 100mg Take 1 [facility] 100 mg 9-23 tablet by [facility]y of tablet 00:00: mouth [place] 00 daily. Medical Branch losartan 2019-0 Yes [id number] 100mg Take 1 [facility] 100 mg 9-23 tablet by ity of tablet 00:00: mouth [place] 00 daily. Medical Branch losartan 2018-0 Yes [id number] 100mg Take 1 [facility] 100 mg 9-23 tablet by ity of tablet 00:00: mouth [place] 00 daily. Medical Branch losartan 2018-0 Yes [id number] 100mg Take 1 [facility] 100 mg 9-23 tablet by ity of tablet 00:00: mouth [place] 00 daily. Medical Branch losartan 2018-0 Yes [id number] 100mg Take 1 [facility] 100 mg 9-23 tablet by [facility]y of tablet 00:00: mouth [place] 00 daily. Medical Branch losartan 2018-0 Yes [id number] 100mg Take 1 [facility] 100 mg 9-23 tablet by ity of tablet 00:00: mouth [place] 00 daily. Medical Branch losartan 2019-0 Yes [id number] 100mg Take 1 [facility] 100 mg 9-23 tablet by ity of tablet 00:00: mouth [place] 00 daily. Medical Branch losartan 2019-0 Yes [id number] 100mg Take 1 [facility] 100 mg 9-23 tablet by ity of tablet 00:00: mouth [place] 00 daily. Medical Branch losartan 2019-0 Yes [id number] 100mg Take 1 [facility] 100 mg 9-23 tablet by [facility] of tablet 00:00: mouth [place] 00 daily. Medical Branch losartan 2019-0 Yes [id number] 100mg Take 1 [facility] 100 mg 9-23 tablet by [facility] of tablet 00:00: mouth [place] 00 daily. Medical Branch losartan 2019-0 Yes [id number] 100mg Take 1 [facility] 100 mg 9-23 tablet by [facility] of tablet 00:00: mouth [place] 00 daily. Medical Branch losartan 2019-0 Yes [id number] 100mg Take 1 [facility] 100 mg 9-23 tablet by [facility]y of tablet 00:00: mouth [place] 00 daily. Medical Branch losartan 2019-0 Yes [id number] 100mg Take 1 [facility] 100 mg 9-23 tablet by ity of tablet 00:00: mouth [place] 00 daily. Medical Branch losartan Yes [id number] 100mg Take 1 [facility] 100 mg 9-23 tablet by ity of tablet 00:00: mouth [place] 00 daily. Medical Branch losartan Yes [id number] 100mg Take 1 [facility] 100 mg 9-23 tablet by ity of tablet 00:00: mouth [place] 00 daily. Medical Branch losartan Yes [id number] 100mg Take 1 [facility] 100 mg 9-23 tablet by ity of tablet 00:00: mouth [place] 00 daily. Medical Branch losartan Yes [id number] 100mg Take 1 [facility] 100 mg 9-23 tablet by ity of tablet 00:00: mouth [place] 00 daily. Medical Branch losartan Yes [id number] 100mg Take 1 [facility] 100 mg 9-23 tablet by ity of tablet 00:00: mouth [place] 00 daily. Medical Branch losartan 2018-2020- No [id number] 100mg Take 1 [facility] 100 mg 9-23 04-05 tablet by ity of tablet 00:00: 00:00 mouth [place] 00 :00 daily. Medical Branch losartan 2018-2020- No [id number] 100mg Take 1 [facility] 100 mg 9-23 04-05 tablet by ity of tablet 00:00: 00:00 mouth [place] 00 :00 daily. Medical Branch traMADol 50 Yes [id number] 1 by mouth [facility] mg tablet 12-05 [id number] every 4-6 ity of 00:00: hours as [place] 00 needed for Medical pain Branch traMADol 50 Yes [id number] 1 by mouth [facility] mg tablet 12-05 [id number] every 4-6 ity of 00:00: hours as [place] 00 needed for Medical pain Branch traMADol 50 Yes [id number] 1 by mouth [facility] mg tablet - [id number] every 4-6 ity of 00:00: hours as [place] 00 needed for Medical pain Branch traMADol 50 Yes [id number] 1 by mouth [facility] mg tablet - [id number] every 4-6 ity of 00:00: hours as [place] 00 needed for Medical pain Branch traMADol 50 Yes [id number] 1 by mouth [facility] mg tablet 12-05 [id number] every 4-6 ity of 00:00: hours as [place] 00 needed for Medical pain Branch traMADol 50 2019-0 Yes [id number] 1 by mouth [facility] mg tablet 12-05 [id number] every 4-6 ity of 00:00: hours as [place] 00 needed for Medical pain Branch traMADol 50 2019-0 Yes [id number] 1 by mouth [facility] mg tablet 12-05 [id number] every 4-6 ity of 00:00: hours as [place] 00 needed for Medical pain Branch traMADol 50 2019-0 Yes [id number] 1 by mouth [facility] mg tablet 12-05 [id number] every 4-6 ity of 00:00: hours as [place] 00 needed for Medical pain Branch traMADol 50 2019-0 Yes [id number] 1 by mouth [facility] mg tablet 12-05 [id number] every 4-6 ity of 00:00: hours as [place] 00 needed for Medical pain Branch traMADol 50 2019-0 Yes [id number] 1 by mouth [facility] mg tablet 12-05 [id number] every 4-6 ity of 00:00: hours as [place] 00 needed for Medical pain Branch traMADol 50 2019-0 Yes [id number] 1 by mouth [facility] mg tablet 12-05 [id number] every 4-6 ity of 00:00: hours as [place] 00 needed for Medical pain Branch traMADol 50 2019-0 Yes [id number] 1 by mouth [facility] mg tablet 12-05 [id number] every 4-6 ity of 00:00: hours as [place] 00 needed for Medical pain Branch traMADol 50 2019-0 Yes [id number] 1 by mouth [facility] mg tablet 12-05 [id number] every 4-6 ity of 00:00: hours as [place] 00 needed for Medical pain Branch traMADol 50 2019-0 Yes [id number] 1 by mouth [facility] mg tablet 12-05 [id number] every 4-6 ity of 00:00: hours as [place] 00 needed for Medical pain Branch traMADol 50 2019-0 Yes [id number] 1 by mouth [facility] mg tablet 8- [id number] every 4-6 ity of 00:00: hours as [place] 00 needed for Medical pain Branch traMADol 50 2019-0 Yes [id number] 1 by mouth [facility] mg tablet 8- [id number] every 4-6 ity of 00:00: hours as [place] 00 needed for Medical pain Branch traMADol 50 2019-0 Yes [id number] 1 by mouth [facility] mg tablet 8- [id number] every 4-6 ity of 00:00: hours as [place] 00 needed for Medical pain Branch traMADol 50 2020- No [id number] 1 by mouth [facility] mg tablet 12-05 [id number] every 4-6 it y of 00:00: 00:00 hours as [place] 00 :00 needed for Medical pain Branch ondansetron 2019- No 4mg 4 mg, Slow [facility] (ZOFRAN 12-01 IV Push, ity of (PF)) 22:45: 22:25 ONCE, 1 [place] injection 4 00 :00 dose, Mon Med [...] mg 00 :00 ONCE, 1 Medical dose, [facility] Branch 12/01/18 at 1545, [place]
Fa culty [...] s tablet 24 bedtime. Medical Branch diazepam 2018- Yes 1mg Take 1 mg [facility] ers [...] 0800, Until Discontinu ed, Routine FENTanyl PF 2018- 2019- No 75ug 75 mcg, Un you (SUBLIMAZE 8-05 08-05 Slow IV ity o f (PF)) 02:15: 01:11 Push, [place] injection 00 :00 ONCE, 1 Medical 75 mcg dose, [facility] 11/16/18 at 2115, [place] pantoprazol 2018-0 Yes [id number] 40mg Take 1 [facility] e 40 mg EC 8-05 tablet by ity of tablet 00:00: mouth 2 [place] 00 (two) Medical times Branch daily. proMETHazin 2019- Yes [id number] 25mg Take 1 [facility] e 25 mg 8-05 tablet by ity of tablet 00:00: mouth [place] 00 every 6 Medical (six) Branch hours as needed for N/V alternatin g with Ondansetro n. HYDROcodone 2019-0 Yes [id number] 1{tbl} Take 1 [facility] -acetaminop 8-05 tablet by ity of hen 7.5-325 00:00: mouth [place] mg per 00 every 6 Medical tablet (six) Branch hours as needed (Pain scal 7-10). pantoprazol Yes [id number] 40mg Take 1 [facility] e 40 mg EC 8-05 tablet by ity of tablet 00:00: mouth 2 [place] 00 (two) Medical times Branch daily. proMETHazin Yes [id number] 25mg Take 1 [facility] e 25 mg 8-05 tablet by ity of tablet 00:00: mouth [place] 00 every 6 Medical (six) Branch hours as needed for N/V alternatin g with Ondansetro n. HYDROcodone Yes [id number] 1{tbl} Take 1 [facility] -acetaminop 8-05 tablet by ity of hen 7.5-325 00:00: mouth [place] mg per 00 every 6 Medical tablet (six) Branch hours as needed (Pain scal 7-10). pantoprazol Yes [id number] 40mg Take 1 [facility] e 40 mg EC 8-05 tablet by ity of tablet 00:00: mouth 2 [place] (two) Medical times Branch daily. proMETHazin Yes [id number] 25mg Take 1 [facility] e 25 mg 8-05 tablet by ity of tablet 00:00: mouth [place] 00 every 6 Medical (six) Branch hours as needed for N/V alternatin g with Ondansetro n. HYDROcodone Yes [id number] 1{tbl} Take 1 [facility] -acetaminop 8-05 tablet by ity of hen 7.5-325 00:00: mouth [place] mg per 00 every 6 Medical tablet (six) Branch hours as needed (Pain scal 7-10). pantoprazol Yes [id number] 40mg Take 1 [facility] e 40 mg EC 8-05 tablet by ity of tablet 00:00: mouth 2 [place] 00 (two) Medical times Branch daily. proMETHazin Yes [id number] 25mg Take 1 [facility] e 25 mg 8-05 tablet by ity of tablet 00:00: mouth [place] 00 every 6 Medical (six) Branch hours as needed for N/V alternatin g with Ondansetro n. HYDROcodone 2018- Yes [id number] 1{tbl} Take 1 [facility] -acetaminop 8-05 tablet by ity of hen 7.5-325 00:00: mouth [place] mg per 00 every 6 Medical tablet (six) Branch hours as needed (Pain scal 7-10). pantoprazol Yes [id number] 40mg Take 1 [facility] e 40 mg EC 8-05 tablet by ity of tablet 00:00: mouth 2 [place] 00 (two) Medical times Branch daily. proMETHazin Yes [id number] 25mg Take 1 [facility] e 25 mg 8-05 tablet by ity of tablet 00:00: mouth [place] 00 every 6 Medical (six) Branch hours as needed for N/V alternatin g with Ondansetro n. HYDROcodone Yes [id number] 1{tbl} Take 1 [facility] -acetaminop 8-05 tablet by ity of hen 7.5-325 00:00: mouth [place] mg per 00 every 6 Medical tablet (six) Branch hours as needed (Pain scal 7-10). pantoprazol Yes [id number] 40mg Take 1 [facility] e 40 mg EC 8-05 tablet by ity of tablet 00:00: mouth 2 [place] 00 (two) Medical times Branch daily. proMETHazin Yes [id number] 25mg Take 1 [facility] e 25 mg 8-05 tablet by ity of tablet 00:00: mouth [place] 00 every 6 Medical (six) Branch hours as needed for N/V alternatin g with Ondansetro n. HYDROcodone Yes [id number] 1{tbl} Take 1 [facility] -acetaminop 8-05 tablet by ity of hen 7.5-325 00:00: mouth [place] mg per 00 every 6 Medical tablet (six) Branch hours as needed (Pain scal 7-10). pantoprazol Yes [id number] 40mg Take 1 [facility] e 40 mg EC 8-05 tablet by ity of tablet 00:00: mouth 2 [place] 00 (two) Medical times Branch daily. proMETHazin 2018- Yes [id number] 25mg Take 1 [facility] e 25 mg 8-05 tablet by ity of tablet 00:00: mouth [place] 00 every 6 Medical (six) Branch hours as needed for N/V alternatin g with Ondansetro n. HYDROcodone Yes [id number] 1{tbl} Take 1 [facility] -acetaminop 8-05 tablet by ity of hen 7.5-325 00:00: mouth [place] mg per 00 every 6 Medical tablet (six) Branch hours as needed (Pain scal 7-10). pantoprazol Yes [id number] 40mg Take 1 [facility] e 40 mg EC 8-05 tablet by ity of tablet 00:00: mouth 2 [place] 00 (two) Medical times Branch daily. proMETHazin Yes [id number] 25mg Take 1 [facility] e 25 mg 8-05 tablet by ity of tablet 00:00: mouth [place] 00 every 6 Medical (six) Branch hours as needed for N/V alternatin g with Ondansetro n. HYDROcodone Yes [id number] 1{tbl} Take 1 [facility] -acetaminop 8-05 tablet by ity of hen 7.5-325 00:00: mouth [place] mg per 00 every 6 Medical tablet (six) Branch hours as needed (Pain scal 7-10). pantoprazol Yes [id number] 40mg Take 1 [facility] e 40 mg EC 8-05 tablet by ity of tablet 00:00: mouth 2 [place] 00 (two) Medical times Branch daily. proMETHazin Yes [id number] 25mg Take 1 [facility] e 25 mg 8-05 tablet by ity of tablet 00:00: mouth [place] 00 every 6 Medical (six) Branch hours as needed for N/V alternatin g with Ondansetro n. HYDROcodone Yes [id number] 1{tbl} Take 1 [facility] -acetaminop 8-05 tablet by ity of hen 7.5-325 00:00: mouth [place] mg per 00 every 6 Medical tablet (six) Branch hours as needed (Pain scal 7-10). pantoprazol Yes [id number] 40mg Take 1 [facility] e 40 mg EC 8-05 tablet by ity of tablet 00:00: mouth 2 [place] 00 (two) Medical times Branch daily. proMETHazin Yes [id number] 25mg Take 1 [facility] e 25 mg 8-05 tablet by ity of tablet 00:00: mouth [place] 00 every 6 Medical (six) Branch hours as needed for N/V alternatin g with Ondansetro n. HYDROcodone Yes [id number] 1{tbl} Take 1 [facility] -acetaminop 8-05 tablet by ity of hen 7.5-325 00:00: mouth [place] mg per 00 every 6 Medical tablet (six) Branch hours as needed (Pain scal 7-10). pantoprazol Yes [id number] 40mg Take 1 [facility] e 40 mg EC 8-05 tablet by ity of tablet 00:00: mouth 2 [place] 00 (two) Medical times Branch daily. proMETHazin Yes [id number] 25mg Take 1 [facility] e 25 mg 8-05 tablet by ity of tablet 00:00: mouth [place] 00 every 6 Medical (six) Branch hours as needed for N/V alternatin g with Ondansetro n. HYDROcodone Yes [id number] 1{tbl} Take 1 [facility] -acetaminop 8-05 tablet by ity of hen 7.5-325 00:00: mouth [place] mg per 00 every 6 Medical tablet (six) Branch hours as needed (Pain scal 7-10). pantoprazol Yes [id number] 40mg Take 1 [facility] e 40 mg EC 8-05 tablet by ity of tablet 00:00: mouth 2 [place] 00 (two) Medical times Branch daily. proMETHazin Yes [id number] 25mg Take 1 [facility] e 25 mg 8-05 tablet by ity of tablet 00:00: mouth [place] 00 every 6 Medical (six) Branch hours as needed for N/V alternatin g with Ondansetro n. HYDROcodone Yes [id number] 1{tbl} Take 1 [facility] -acetaminop 8-05 tablet by ity of hen 7.5-325 00:00: mouth [place] mg per 00 every 6 Medical tablet (six) Branch hours as needed (Pain scal 7-10). pantoprazol Yes [id number] 40mg Take 1 [facility] e 40 mg EC 8-05 tablet by ity of tablet 00:00: mouth 2 [place] 00 (two) Medical times Branch daily. proMETHazin Yes [id number] 25mg Take 1 [facility] e 25 mg 8-05 tablet by ity of tablet 00:00: mouth [place] 00 every 6 Medical (six) Branch hours as needed for N/V alternatin g with Ondansetro n. HYDROcodone Yes [id number] 1{tbl} Take 1 [facility] -acetaminop 8-05 tablet by ity of hen 7.5-325 00:00: mouth [place] mg per 00 every 6 Medical tablet (six) Branch hours as needed (Pain scal 7-10). pantoprazol 2018- Yes [id number] 40mg Take 1 [facility] e 40 mg EC 8-05 tablet by ity of tablet 00:00: mouth 2 [place] 00 (two) Medical times Branch daily. proMETHazin 2018- Yes [id number] 25mg Take 1 [facility] e 25 mg 8-05 tablet by ity of tablet 00:00: mouth [place] 00 every 6 Medical (six) Branch hours as needed for N/V alternatin g with Ondansetro n. HYDROcodone Yes [id number] 1{tbl} Take 1 [facility] -acetaminop 8-05 tablet by ity of hen 7.5-325 00:00: mouth [place] mg per 00 every 6 Medical tablet (six) Branch hours as needed (Pain scal 7-10). pantoprazol 2018- Yes [id number] 40mg Take 1 [facility] e 40 mg EC 8-05 tablet by ity of tablet 00:00: mouth 2 [place] 00 (two) Medical times Branch daily. proMETHazin Yes [id number] 25mg Take 1 [facility] e 25 mg 8-05 tablet by ity of tablet 00:00: mouth [place] 00 every 6 Medical (six) Branch hours as needed for N/V alternatin g with Ondansetro n. HYDROcodone 2018- Yes [id number] 1{tbl} Take 1 [facility] -acetaminop 8-05 tablet by ity of hen 7.5-325 00:00: mouth [place] mg per 00 every 6 Medical tablet (six) Branch hours as needed (Pain scal 7-10). pantoprazol Yes [id number] 40mg Take 1 [facility] e 40 mg EC 8-05 tablet by ity of tablet 00:00: mouth 2 [place] 00 (two) Medical times Branch daily. proMETHazin 2018- Yes [id number] 25mg Take 1 [facility] e 25 mg 8-05 tablet by ity of tablet 00:00: mouth [place] 00 every 6 Medical (six) Branch hours as needed for N/V alternatin g with Ondansetro n. HYDROcodone Yes [id number] 1{tbl} Take 1 [facility] -acetaminop 8-05 tablet by ity of hen 7.5-325 00:00: mouth [place] mg per 00 every 6 Medical tablet (six) Branch hours as needed (Pain scal 7-10). pantoprazol Yes [id number] 40mg Take 1 [facility] e 40 mg EC 8-05 tablet by ity of tablet 00:00: mouth 2 [place] 00 (two) Medical times Branch daily. proMETHazin Yes [id number] 25mg Take 1 [facility] e 25 mg 8-05 tablet by ity of tablet 00:00: mouth [place] 00 every 6 Medical (six) Branch hours as needed for N/V alternatin g with Ondansetro n. HYDROcodone Yes [id number] 1{tbl} Take 1 [facility] -acetaminop 8-05 tablet by ity of hen 7.5-325 00:00: mouth [place] mg per 00 every 6 Medical tablet (six) Branch hours as needed (Pain scal 7-10). pantoprazol Yes [id number] 40mg Take 1 [facility] e 40 mg EC 8-05 tablet by ity of tablet 00:00: mouth 2 [place] 00 (two) Medical times Branch daily. proMETHazin Yes [id number] 25mg Take 1 [facility] e 25 mg 8-05 tablet by ity of tablet 00:00: mouth [place] 00 every 6 Medical (six) Branch hours as needed for N/V alternatin g with Ondansetro n. HYDROcodone Yes [id number] 1{tbl} Take 1 [facility] -acetaminop 8-05 tablet by ity of hen 7.5-325 00:00: mouth [place] mg per 00 every 6 Medical tablet (six) Branch hours as needed (Pain scal 7-10). pantoprazol Yes [id number] 40mg Take 1 [facility] e 40 mg EC 8-05 tablet by ity of tablet 00:00: mouth 2 [place] 00 (two) Medical times Branch daily. proMETHazin Yes [id number] 25mg Take 1 [facility] e 25 mg 8-05 tablet by ity of tablet 00:00: mouth [place] 00 every 6 Medical (six) Branch hours as needed for N/V alternatin g with Ondansetro n. HYDROcodone Yes [id number] 1{tbl} Take 1 [facility] -acetaminop 8-05 tablet by ity of hen 7.5-325 00:00: mouth [place] mg per 00 every 6 Medical tablet (six) Branch hours as needed (Pain scal 7-10). HYDROcodone Yes [id number] 1{tbl} Take 1 [facility] -acetaminop 8-05 tablet by ity of hen 7.5-325 00:00: mouth [place] mg per 00 every 6 Medical tablet (six) Branch hours as needed (Pain scal 7-10). HYDROcodone Yes [id number] 1{tbl} Take 1 [facility] -acetaminop 8-05 tablet by ity of hen 7.5-325 00:00: mouth [place] mg per 00 every 6 Medical tablet (six) Branch hours as needed (Pain scal 7-10). HYDROcodone Yes [id number] 1{tbl} Take 1 [facility] -acetaminop 8-05 tablet by ity of hen 7.5-325 00:00: mouth [place] mg per 00 every 6 Medical tablet (six) Branch hours as needed (Pain scal 7-10). HYDROcodone Yes [id number] 1{tbl} Take 1 [facility] -acetaminop 8-05 tablet by ity of hen 7.5-325 00:00: mouth [place] mg per 00 every 6 Medical tablet (six) Branch hours as needed (Pain scal 7-10). HYDROcodone Yes [id number] 1{tbl} Take 1 [facility] -acetaminop 8-05 tablet by ity of hen 7.5-325 00:00: mouth [place] mg per 00 every 6 Medical tablet (six) Branch hours as needed (Pain scal 7-10). HYDROcodone Yes [id number] 1{tbl} Take 1 [facility] -acetaminop 8-05 tablet by ity of hen 7.5-325 00:00: mouth [place] mg per 00 every 6 Medical tablet (six) Branch hours as needed (Pain scal 7-10). HYDROcodone Yes [id number] 1{tbl} Take 1 [facility] -acetaminop 8-05 tablet by ity of hen 7.5-325 00:00: mouth [place] mg per 00 every 6 Medical tablet (six) Branch hours as needed (Pain scal 7-10). HYDROcodone Yes [id number] 1{tbl} Take 1 [facility] -acetaminop 8-05 tablet by ity of hen 7.5-325 00:00: mouth [place] mg per 00 every 6 Medical tablet (six) Branch hours as needed (Pain scal 7-10). HYDROcodone Yes [id number] 1{tbl} Take 1 [facility] -acetaminop 8-05 tablet by ity of hen 7.5-325 00:00: mouth [place] mg per 00 every 6 Medical tablet (six) Branch hours as needed (Pain scal 7-10). HYDROcodone Yes [id number] 1{tbl} Take 1 [facility] -acetaminop 8-05 tablet by ity of hen 7.5-325 00:00: mouth [place] mg per 00 every 6 Medical tablet (six) Branch hours as needed (Pain scal 7-10). HYDROcodone Yes [id number] 1{tbl} Take 1 [facility] -acetaminop 8-05 tablet by ity of hen 7.5-325 00:00: mouth [place] mg per 00 every 6 Medical tablet (six) Branch hours as needed (Pain scal 7-10). HYDROcodone Yes [id number] 1{tbl} Take 1 [facility] -acetaminop 8-05 tablet by ity of hen 7.5-325 00:00: mouth [place] mg per 00 every 6 Medical tablet (six) Branch hours as needed (Pain scal 7-10). HYDROcodone Yes [id number] 1{tbl} Take 1 [facility] -acetaminop 8-05 tablet by ity of hen 7.5-325 00:00: mouth [place] mg per 00 every 6 Medical tablet (six) Branch hours as needed (Pain scal 7-10). HYDROcodone Yes [id number] 1{tbl} Take 1 [facility] -acetaminop 8-05 tablet by ity of hen 7.5-325 00:00: mouth [place] mg per 00 every 6 Medical tablet (six) Branch hours as needed (Pain scal 7-10). HYDROcodone Yes [id number] 1{tbl} Take 1 [facility] -acetaminop 8-05 tablet by ity of hen 7.5-325 00:00: mouth [place] mg per 00 every 6 Medical tablet (six) Branch hours as needed (Pain scal 7-10). HYDROcodone Yes [id number] 1{tbl} Take 1 [facility] -acetaminop 8-05 tablet by ity of hen 7.5-325 00:00: mouth [place] mg per 00 every 6 Medical tablet (six) Branch hours as needed (Pain scal 7-10). HYDROcodone Yes [id number] 1{tbl} Take 1 [facility] -acetaminop 8-05 tablet by ity of hen 7.5-325 00:00: mouth [place] mg per 00 every 6 Medical tablet (six) Branch hours as needed (Pain scal 7-10). HYDROcodone Yes [id number] 1{tbl} Take 1 [facility] -acetaminop 8-05 tablet by ity of hen 7.5-325 00:00: mouth [place] mg per 00 every 6 Medical tablet (six) Branch hours as needed (Pain scal 7-10). HYDROcodone Yes [id number] 1{tbl} Take 1 [facility] -acetaminop 8-05 tablet by ity of hen 7.5-325 00:00: mouth [place] mg per 00 every 6 Medical tablet (six) Branch hours as needed (Pain scal 7-10). HYDROcodone Yes [id number] 1{tbl} Take 1 [facility] -acetaminop 8-05 tablet by ity of hen 7.5-325 00:00: mouth [place] mg per 00 every 6 Medical tablet (six) Branch hours as needed (Pain scal 7-10). HYDROcodone Yes [id number] 1{tbl} Take 1 [facility] -acetaminop 8-05 tablet by ity of hen 7.5-325 00:00: mouth [place] mg per 00 every 6 Medical tablet (six) Branch hours as needed (Pain scal 7-10). HYDROcodone Yes [id number] 1{tbl} Take 1 [facility] -acetaminop 8-05 tablet by ity of hen 7.5-325 00:00: mouth [place] mg per 00 every 6 Medical tablet (six) Branch hours as needed (Pain scal 7-10). HYDROcodone Yes [id number] 1{tbl} Take 1 [facility] -acetaminop 8-05 tablet by ity of hen 7.5-325 00:00: mouth [place] mg per 00 every 6 Medical tablet (six) Branch hours as needed (Pain scal 7-10). HYDROcodone Yes [id number] 1{tbl} Take 1 [facility] -acetaminop 8-05 tablet by ity of hen 7.5-325 00:00: mouth [place] mg per 00 every 6 Medical tablet (six) Branch hours as needed (Pain scal 7-10). HYDROcodone Yes [id number] 1{tbl} Take 1 [facility] -acetaminop 8-05 tablet by ity of hen 7.5-325 00:00: mouth [place] mg per 00 every 6 Medical tablet (six) Branch hours as needed (Pain scal 7-10). HYDROcodone Yes [id number] 1{tbl} Take 1 [facility] -acetaminop 8-05 tablet by ity of hen 7.5-325 00:00: mouth [place] mg per 00 every 6 Medical tablet (six) Branch hours as needed (Pain scal 7-10). HYDROcodone Yes [id number] 1{tbl} Take 1 [facility] -acetaminop 8-05 tablet by ity of hen 7.5-325 00:00: mouth [place] mg per 00 every 6 Medical tablet (six) Branch hours as needed (Pain scal 7-10). HYDROcodone Yes [id number] 1{tbl} Take 1 [facility] -acetaminop 8-05 tablet by ity of hen 7.5-325 00:00: mouth [place] mg per 00 every 6 Medical tablet (six) Branch hours as needed (Pain scal 7-10). HYDROcodone Yes [id number] 1{tbl} Take 1 [facility] -acetaminop 8-05 tablet by ity of hen 7.5-325 00:00: mouth [place] mg per 00 every 6 Medical tablet (six) Branch hours as needed (Pain scal 7-10). HYDROcodone Yes [id number] 1{tbl} Take 1 [facility] -acetaminop 8-05 tablet by ity of hen 7.5-325 00:00: mouth [place] mg per 00 every 6 Medical tablet (six) Branch hours as needed (Pain scal 7-10). HYDROcodone Yes [id number] 1{tbl} Take 1 [facility] -acetaminop 8-05 tablet by ity of hen 7.5-325 00:00: mouth [place] mg per 00 every 6 Medical tablet (six) Branch hours as needed (Pain scal 7-10). HYDROcodone Yes [id number] 1{tbl} Take 1 [facility] -acetaminop 8-05 tablet by ity of hen 7.5-325 00:00: mouth [place] mg per 00 every 6 Medical tablet (six) Branch hours as needed (Pain scal 7-10). HYDROcodone Yes [id number] 1{tbl} Take 1 [facility] -acetaminop 8-05 tablet by ity of hen 7.5-325 00:00: mouth [place] mg per 00 every 6 Medical tablet (six) Branch hours as needed (Pain scal 7-10). HYDROcodone Yes [id number] 1{tbl} Take 1 [facility] -acetaminop 8-05 tablet by ity of hen 7.5-325 00:00: mouth [place] mg per 00 every 6 Medical tablet (six) Branch hours as needed (Pain scal 7-10). HYDROcodone Yes [id number] 1{tbl} Take 1 [facility] -acetaminop 8-05 tablet by ity of hen 7.5-325 00:00: mouth [place] mg per 00 every 6 Medical tablet (six) Branch hours as needed (Pain scal 7-10). HYDROcodone Yes [id number] 1{tbl} Take 1 [facility] -acetaminop 8-05 tablet by ity of hen 7.5-325 00:00: mouth [place] mg per 00 every 6 Medical tablet (six) Branch hours as needed (Pain scal 7-10). HYDROcodone Yes [id number] 1{tbl} Take 1 [facility] -acetaminop 8-05 tablet by ity of hen 7.5-325 00:00: mouth [place] mg per 00 every 6 Medical tablet (six) Branch hours as needed (Pain scal 7-10). pantoprazol Yes [id number] 40mg Take 1 [facility] e 40 mg EC 8-05 tablet by ity of tablet 00:00: mouth 2 [place] 00 (two) Medical times Branch daily. ondansetron Yes [id number] 4mg Take 1 [facility] 4 mg tablet 8-05 tablet by ity of 00:00: mouth [place] 00 every 8 Medical (eight) Branch hours as needed for Nausea and Vomiting (N/V). proMETHazin 2018-0 Yes [id number] 25mg Take 1 [facility] e 25 mg 8-05 tablet by ity of tablet 00:00: mouth [place] 00 every 6 Medical (six) Branch hours as needed for N/V alternatin g with Ondansetro n. HYDROcodone 2018- Yes [id number] 1{tbl} Take 1 [facility] -acetaminop 8-05 tablet by ity of hen 7.5-325 00:00: mouth [place] mg per 00 every 6 Medical tablet (six) Branch hours as needed (Pain scal 7-10). pantoprazol Yes [id number] 40mg Take 1 [facility] e 40 mg EC 8-05 tablet by ity of tablet 00:00: mouth 2 [place] 00 (two) Medical times Branch daily. ondansetron Yes [id number] 4mg Take 1 [facility] 4 mg tablet 8-05 tablet by ity of 00:00: mouth [place] 00 every 8 Medical (eight) Branch hours as needed for Nausea and Vomiting (N/V). proMETHazin Yes [id number] 25mg Take 1 [facility] e 25 mg 8-05 tablet by ity of tablet 00:00: mouth [place] 00 every 6 Medical (six) Branch hours as needed for N/V alternatin g with Ondansetro n. HYDROcodone Yes [id number] 1{tbl} Take 1 [facility] -acetaminop 8-05 tablet by ity of hen 7.5-325 00:00: mouth [place] mg per 00 every 6 Medical tablet (six) Branch hours as needed (Pain scal 7-10). pantoprazol Yes [id number] 40mg Take 1 [facility] e 40 mg EC 8-05 tablet by ity of tablet 00:00: mouth 2 [place] 00 (two) Medical times Branch daily. ondansetron 2018-0 Yes [id number] 4mg Take 1 [facility] 4 mg tablet 8-05 tablet by ity of 00:00: mouth [place] 00 every 8 Medical (eight) Branch hours as needed for Nausea and Vomiting (N/V). proMETHazin 2018- Yes [id number] 25mg Take 1 [facility] e 25 mg 8-05 tablet by ity of tablet 00:00: mouth [place] 00 every 6 Medical (six) Branch hours as needed for N/V alternatin g with Ondansetro n. HYDROcodone Yes [id number] 1{tbl} Take 1 [facility] -acetaminop 8-05 tablet by ity of hen 7.5-325 00:00: mouth [place] mg per 00 every 6 Medical tablet (six) Branch hours as needed (Pain scal 7-10). pantoprazol Yes [id number] 40mg Take 1 [facility] e 40 mg EC 8-05 tablet by ity of tablet 00:00: mouth 2 [place] 00 (two) Medical times Branch daily. ondansetron Yes [id number] 4mg Take 1 [facility] 4 mg tablet 8-05 tablet by ity of 00:00: mouth [place] 00 every 8 Medical (eight) Branch hours as needed for Nausea and Vomiting (N/V). proMETHazin Yes [id number] 25mg Take 1 [facility] e 25 mg 8-05 tablet by ity of tablet 00:00: mouth [place] 00 every 6 Medical (six) Branch hours as needed for N/V alternatin g with Ondansetro n. HYDROcodone Yes [id number] 1{tbl} Take 1 [facility] -acetaminop 8-05 tablet by ity of hen 7.5-325 00:00: mouth [place] mg per 00 every 6 Medical tablet (six) Branch hours as needed (Pain scal 7-10). pantoprazol Yes [id number] 40mg Take 1 [facility] e 40 mg EC 8-05 tablet by ity of tablet 00:00: mouth 2 [place] 00 (two) Medical times Branch daily. ondansetron Yes [id number] 4mg Take 1 [facility] 4 mg tablet 8-05 tablet by ity of 00:00: mouth [place] 00 every 8 Medical (eight) Branch hours as needed for Nausea and Vomiting (N/V). proMETHazin 2018- Yes [id number] 25mg Take 1 [facility] e 25 mg 8-05 tablet by ity of tablet 00:00: mouth [place] 00 every 6 Medical (six) Branch hours as needed for N/V alternatin g with Ondansetro n. HYDROcodone Yes [id number] 1{tbl} Take 1 [facility] -acetaminop 8-05 tablet by ity of hen 7.5-325 00:00: mouth [place] mg per 00 every 6 Medical tablet (six) Branch hours as needed (Pain scal 7-10). pantoprazol Yes [id number] 40mg Take 1 [facility] e 40 mg EC 8-05 tablet by ity of tablet 00:00: mouth 2 [place] 00 (two) Medical times Branch daily. ondansetron 2018- Yes [id number] 4mg Take 1 [facility] 4 mg tablet 8-05 tablet by ity of 00:00: mouth [place] 00 every 8 Medical (eight) Branch hours as needed for Nausea and Vomiting (N/V). proMETHazin Yes [id number] 25mg Take 1 [facility] e 25 mg 8-05 tablet by ity of tablet 00:00: mouth [place] 00 every 6 Medical (six) Branch hours as needed for N/V alternatin g with Ondansetro n. HYDROcodone Yes [id number] 1{tbl} Take 1 [facility] -acetaminop 8-05 tablet by ity of hen 7.5-325 00:00: mouth [place] mg per 00 every 6 Medical tablet (six) Branch hours as needed (Pain scal 7-10). pantoprazol Yes [id number] 40mg Take 1 [facility] e 40 mg EC 8-05 tablet by ity of tablet 00:00: mouth 2 [place] 00 (two) Medical times Branch daily. ondansetron Yes [id number] 4mg Take 1 [facility] 4 mg tablet 8-05 tablet by ity of 00:00: mouth [place] 00 every 8 Medical (eight) Branch hours as needed for Nausea and Vomiting (N/V). proMETHazin 2018-0 Yes [id number] 25mg Take 1 [facility] e 25 mg 8-05 tablet by ity of tablet 00:00: mouth [place] 00 every 6 Medical (six) Branch hours as needed for N/V alternatin g with Ondansetro n. HYDROcodone 2018-0 Yes [id number] 1{tbl} Take 1 [facility] -acetaminop 8-05 tablet by ity of hen 7.5-325 00:00: mouth [place] mg per 00 every 6 Medical tablet (six) Branch hours as needed (Pain scal 7-10). pantoprazol Yes [id number] 40mg Take 1 [facility] e 40 mg EC 8-05 tablet by ity of tablet 00:00: mouth 2 [place] 00 (two) Medical times Branch daily. ondansetron 2019-0 Yes [id number] 4mg Take 1 [facility] 4 mg tablet 8-05 tablet by ity of 00:00: mouth [place] 00 every 8 Medical (eight) Branch hours as needed for Nausea and Vomiting (N/V). proMETHazin 2019-0 Yes [id number] 25mg Take 1 [facility] e 25 mg 8-05 tablet by ity of tablet 00:00: mouth [place] 00 every 6 Medical (six) Branch hours as needed for N/V alternatin g with Ondansetro n. HYDROcodone 2018- Yes [id number] 1{tbl} Take 1 [facility] -acetaminop 8-05 tablet by ity of hen 7.5-325 00:00: mouth [place] mg per 00 every 6 Medical tablet (six) Branch hours as needed (Pain scal 7-10). pantoprazol Yes [id number] 40mg Take 1 [facility] e 40 mg EC 8-05 tablet by ity of tablet 00:00: mouth 2 [place] 00 (two) Medical times Branch daily. ondansetron Yes [id number] 4mg Take 1 [facility] 4 mg tablet 8-05 tablet by ity of 00:00: mouth [place] 00 every 8 Medical (eight) Branch hours as needed for Nausea and Vomiting (N/V). proMETHazin 2018-0 Yes [id number] 25mg Take 1 [facility] e 25 mg 8-05 tablet by ity of tablet 00:00: mouth [place] 00 every 6 Medical (six) Branch hours as needed for N/V alternatin g with Ondansetro n. HYDROcodone 2018-0 Yes [id number] 1{tbl} Take 1 [facility] -acetaminop 8-05 tablet by ity of hen 7.5-325 00:00: mouth [place] mg per 00 every 6 Medical tablet (six) Branch hours as needed (Pain scal 7-10). pantoprazol 2019-0 Yes [id number] 40mg Take 1 [facility] e 40 mg EC 8-05 tablet by ity of tablet 00:00: mouth 2 [place] 00 (two) Medical times Branch daily. ondansetron 2018- Yes [id number] 4mg Take 1 [facility] 4 mg tablet 8-05 tablet by ity of 00:00: mouth [place] 00 every 8 Medical (eight) Branch hours as needed for Nausea and Vomiting (N/V). proMETHazin 2019-0 Yes [id number] 25mg Take 1 [facility] e 25 mg 8-05 tablet by ity of tablet 00:00: mouth [place] 00 every 6 Medical (six) Branch hours as needed for N/V alternatin g with Ondansetro n. HYDROcodone 2018-0 Yes [id number] 1{tbl} Take 1 [facility] -acetaminop 8-05 tablet by ity of hen 7.5-325 00:00: mouth [place] mg per 00 every 6 Medical tablet (six) Branch hours as needed (Pain scal 7-10). pantoprazol 2018-0 Yes [id number] 40mg Take 1 [facility] e 40 mg EC 8-05 tablet by ity of tablet 00:00: mouth 2 [place] 00 (two) Medical times Branch daily. ondansetron 2018-0 Yes [id number] 4mg Take 1 [facility] 4 mg tablet 8-05 tablet by ity of 00:00: mouth [place] 00 every 8 Medical (eight) Branch hours as needed for Nausea and Vomiting (N/V). proMETHazin 2018-0 Yes [id number] 25mg Take 1 [facility] e 25 mg 8-05 tablet by ity of tablet 00:00: mouth [place] 00 every 6 Medical (six) Branch hours as needed for N/V alternatin g with Ondansetro n. HYDROcodone 2018-0 Yes [id number] 1{tbl} Take 1 [facility] -acetaminop 8-05 tablet by ity of hen 7.5-325 00:00: mouth [place] mg per 00 every 6 Medical tablet (six) Branch hours as needed (Pain scal 7-10). pantoprazol 2019-0 Yes [id number] 40mg Take 1 [facility] e 40 mg EC 8-05 tablet by ity of tablet 00:00: mouth 2 [place] 00 (two) Medical times Branch daily. ondansetron 2019-0 Yes [id number] 4mg Take 1 [facility] 4 mg tablet 8-05 tablet by ity of 00:00: mouth [place] 00 every 8 Medical (eight) Branch hours as needed for Nausea and Vomiting (N/V). proMETHazin 2019-0 Yes [id number] 25mg Take 1 [facility] e 25 mg 8-05 tablet by ity of tablet 00:00: mouth [place] 00 every 6 Medical (six) Branch hours as needed for N/V alternatin g with Ondansetro n. HYDROcodone Yes [id number] 1{tbl} Take 1 [facility] -acetaminop 8-05 tablet by ity of hen 7.5-325 00:00: mouth [place] mg per 00 every 6 Medical tablet (six) Branch hours as needed (Pain scal 7-10). pantoprazol Yes [id number] 40mg Take 1 [facility] e 40 mg EC 8-05 tablet by ity of tablet 00:00: mouth 2 [place] 00 (two) Medical times Branch daily. ondansetron Yes [id number] 4mg Take 1 [facility] 4 mg tablet 8-05 tablet by ity of 00:00: mouth [place] 00 every 8 Medical (eight) Branch hours as needed for Nausea and Vomiting (N/V). proMETHazin Yes [id number] 25mg Take 1 [facility] e 25 mg 8-05 tablet by ity of tablet 00:00: mouth [place] 00 every 6 Medical (six) Branch hours as needed for N/V alternatin g with Ondansetro n. HYDROcodone Yes [id number] 1{tbl} Take 1 [facility] -acetaminop 8-05 tablet by ity of hen 7.5-325 00:00: mouth [place] mg per 00 every 6 Medical tablet (six) Branch hours as needed (Pain scal 7-10). pantoprazol Yes [id number] 40mg Take 1 [facility] e 40 mg EC 8-05 tablet by ity of tablet 00:00: mouth 2 [place] 00 (two) Medical times Branch daily. ondansetron Yes [id number] 4mg Take 1 [facility] 4 mg tablet 8-05 tablet by ity of 00:00: mouth [place] 00 every 8 Medical (eight) Branch hours as needed for Nausea and Vomiting (N/V). proMETHazin Yes [id number] 25mg Take 1 [facility] e 25 mg 8-05 tablet by ity of tablet 00:00: mouth [place] 00 every 6 Medical (six) Branch hours as needed for N/V alternatin g with Ondansetro n. HYDROcodone Yes [id number] 1{tbl} Take 1 [facility] -acetaminop 8-05 tablet by ity of hen 7.5-325 00:00: mouth [place] mg per 00 every 6 Medical tablet (six) Branch hours as needed (Pain scal 7-10). pantoprazol Yes [id number] 40mg Take 1 [facility] e 40 mg EC 8-05 tablet by ity of tablet 00:00: mouth 2 [place] 00 (two) Medical times Branch daily. ondansetron Yes [id number] 4mg Take 1 [facility] 4 mg tablet 8-05 tablet by ity of 00:00: mouth [place] 00 every 8 Medical (eight) Branch hours as needed for Nausea and Vomiting (N/V). proMETHazin Yes [id number] 25mg Take 1 [facility] e 25 mg 8-05 tablet by ity of tablet 00:00: mouth [place] 00 every 6 Medical (six) Branch hours as needed for N/V alternatin g with Ondansetro n. HYDROcodone Yes [id number] 1{tbl} Take 1 [facility] -acetaminop 8-05 tablet by ity of hen 7.5-325 00:00: mouth [place] mg per 00 every 6 Medical tablet (six) Branch hours as needed (Pain scal 7-10). pantoprazol Yes [id number] 40mg Take 1 [facility] e 40 mg EC 8-05 tablet by ity of tablet 00:00: mouth 2 [place] 00 (two) Medical times Branch daily. proMETHazin Yes [id number] 25mg Take 1 [facility] e 25 mg 8-05 tablet by ity of tablet 00:00: mouth [place] 00 every 6 Medical (six) Branch hours as needed for N/V alternatin g with Ondansetro n. HYDROcodone Yes [id number] 1{tbl} Take 1 [facility] -acetaminop 8-05 tablet by ity of hen 7.5-325 00:00: mouth [place] mg per 00 every 6 Medical tablet (six) Branch hours as needed (Pain scal 7-10). pantoprazol Yes [id number] 40mg Take 1 [facility] e 40 mg EC 8-05 tablet by ity of tablet 00:00: mouth 2 [place] 00 (two) Medical times Branch daily. proMETHazin Yes [id number] 25mg Take 1 [facility] e 25 mg 8-05 tablet by ity of tablet 00:00: mouth [place] 00 every 6 Medical (six) Branch hours as needed for N/V alternatin g with Ondansetro n. HYDROcodone Yes [id number] 1{tbl} Take 1 [facility] -acetaminop 8-05 tablet by ity of hen 7.5-325 00:00: mouth [place] mg per 00 every 6 Medical tablet (six) Branch hours as needed (Pain scal 7-10). pantoprazol Yes [id number] 40mg Take 1 [facility] e 40 mg EC 8-05 tablet by ity of tablet 00:00: mouth 2 (two) Medical times Branch daily. proMETHazin Yes [id number] 25mg Take 1 [facility] e 25 mg 8-05 tablet by ity of tablet 00:00: mouth [place] 00 every 6 Medical (six) Branch hours as needed for N/V alternatin g with Ondansetro n. HYDROcodone Yes [id number] 1{tbl} Take 1 [facility] -acetaminop 8-05 tablet by ity of hen 7.5-325 00:00: mouth [place] mg per 00 every 6 Medical tablet (six) Branch hours as needed (Pain scal 7-10). pantoprazol Yes [id number] 40mg Take 1 [facility] e 40 mg EC 8-05 tablet by ity of tablet 00:00: mouth 2 (two) Medical times Branch daily. proMETHazin Yes [id number] 25mg Take 1 [facility] e 25 mg 8-05 tablet by ity of tablet 00:00: mouth [place] 00 every 6 Medical (six) Branch hours as needed for N/V alternatin g with Ondansetro n. HYDROcodone Yes [id number] 1{tbl} Take 1 [facility] -acetaminop 8-05 tablet by ity of hen 7.5-325 00:00: mouth [place] mg per 00 every 6 Medical tablet (six) Branch hours as needed (Pain scal 7-10). pantoprazol Yes [id number] 40mg Take 1 [facility] e 40 mg EC 8-05 tablet by ity of tablet 00:00: mouth 2 [place] 00 (two) Medical times Branch daily. proMETHazin Yes [id number] 25mg Take 1 [facility] e 25 mg 8-05 tablet by ity of tablet 00:00: mouth [place] 00 every 6 Medical (six) Branch hours as needed for N/V alternatin g with Ondansetro n. HYDROcodone Yes [id number] 1{tbl} Take 1 [facility] -acetaminop 8-05 tablet by ity of hen 7.5-325 00:00: mouth [place] mg per 00 every 6 Medical tablet (six) Branch hours as needed (Pain scal 7-10). HYDROcodone 2021- No [id number] 1{tbl} Take 1 [facility] -acetaminop 8-05 05-27 tablet by it y of hen 7.5-325 00:00: 00:00 mouth [place] mg per 00 :00 every 6 Medical tablet (six) Branch hours as needed (Pain scal 7-10). pantoprazol 2020- No [id number] 40mg Take 1 [facility] e 40 mg EC 8-05 04-05 tablet by ity of tablet 00:00: 00:00 mouth 2 [place] 00 :00 (two) Medical times Branch daily. proMETHazin 2020- No [id number] 25mg Take 1 [facility] e 25 mg 8-05 04-05 tablet by ity of tablet 00:00: 00:00 mouth [place] 00 :00 every 6 Medical (six) Branch hours as needed for N/V alternatin g with Ondansetro n. pantoprazol 2020- No [id number] 40mg Take 1 [facility] e 40 mg EC 8-05 04-05 tablet by ity of tablet 00:00: 00:00 mouth 2 [place] 00 :00 (two) Medical times Branch daily. proMETHazin 2020- No [id number] 25mg Take 1 [facility] e 25 mg 8-05 04-05 tablet by ity of tablet 00:00: 00:00 mouth [place] 00 :00 every 6 Medical (six) Branch hours as needed for N/V alternatin g with Ondansetro n. HYDROcodone Yes 1{tbl} 1 tablet, [facility] -acetaminop 8-04 Oral, ity of hen (NORCO) 19:23: Q6HPRN, [place] 10-325 mg 44 Starting Medica l tablet 1 [place] 11/16/18 Branc h tablet at 1423, Until Discontinu ed, Routine, Pain (scale 4-6), Pain (scale 7-10) citalopram 2019-0 Yes 10mg 10 mg, Unive rs (CELEXA) 8 Oral, ity of tablet 10 14:00: DAILY, [place] mg 00 First dose Medical on [facility] 11/16/18 at 0900, Until Discontinu ed, Routine losartan 2019-0 Yes 100mg 100 mg, Unive rs (COZAAR) 8 Oral, ity of tablet 100 14:00: DAILY, [place] mg 00 First dose Medical on [facility] 11/16/18 at 0900, Until Discontinu ed lipase-prot 2018-0 Yes 3{capsu 3 capsule, Univers ease-amylas 11-16 le} Oral, TID ity of e (CREON) 13:00: MEALS, [place] 12,000-38,0 00 First dose Me dical 00 -60,000 on [facility] unit 11/16/18 at capsule 3 0800, capsule Until Discontinu ed FENTanyl PF 2019-0 2019- No 25ug 25 mcg, Un you (SUBLIMAZE 11-16- Slow IV ity o f (PF)) 12:38: 19:23 Push, [place] injection 00 :28 Q6HPRN, Medical 25 mcg Starting Branch [place] 11/16/18 at 0738, Until [place] 11/16/18 at 1423, Routine, Pain (scale 7-10) baclofen 2019-0 Yes 10mg 10 mg, Univers (LIORESAL) 8 Oral, TID, ity of tablet 10 05:45: First dose [place] mg 00 on [facility] 11/16/18 at Branch 0045, Until Discontinu ed, Routine QUEtiapine 2018-0 Yes 100mg 100 mg, Uni vers (SEROQUEL) 8- Oral, QHS, ity of tablet 100 02:00: First dose [place] mg 00 on [facility] 11/15/18 at Branch 2100, Until Discontinu ed, Routine divalproex 2018-0 Yes 125mg 125 mg, Uni vers (DEPAKOTE) 8- Oral, QHS, ity of EC tablet 02:00: First dose [place] 125 mg 00 on Sat Medical 11/15/18 at Branch 2100, Until Discontinu ed, Routine proMETHazin 2018- No 25mg 25 mg, Uni vers e 11-16 Oral, ity of (PHENERGAN) 01:15: 00:46 ONCE, 1 [place] tablet 25 00 :00 dose, Sat Medic al mg 11/15/18 at Branch 2015, Routine gabapentin 2018- Yes 300mg 300 mg, Uni vers (NEURONTIN) 8 Oral, BID, it y of capsule 300 [...] Branch needed. ALPRAZOLAM 2018- No Take by Uni vers ORAL 11-15- mouth. ity of 22:50: 00:00 [place] 54 :00 Medical Branch divalproex 2018- No Take by Uni vers sodium 11-15 mouth. ity of (DEPAKOTE 22:50: 00:00 [place] ORAL) 54 :00 Medical Branch HYDROcodone 2019- No 1{tbl} 1 tablet, Univers -acetaminop 11-15 Oral, ity of hen (NORCO 22:46: 19:24 Q6HPRN, [place] 5) 5-325 mg 08 :02 Starting Medi brandy tablet 1 11/15/18 Branc h tablet at 1746, Until 11/16/18 at 1424, Routine, Pain (scale 4-6), Pain (scale 7-10) FENTanyl PF 2019- No 12.5ug 12.5 mcg, Univers (SUBLIMAZE 11-15 0804 Slow IV ity o f (PF)) 22:44: [...] 11-15 Oral, ity of (TYLENOL) 22:41: Q6HPRN, [place] tablet 650 56 Starting Medic al mg 11/15/18 Branch at 1741, Until Discontinu ed, Routine, Pain (scale 1-3) FENTanyl PF 2019- No 100ug 100 mcg, Univers (SUBLIMAZE 11-15 Slow IV ity o f (PF)) 20:30: 19:34 Push, [place] injection 00 :00 ONCE, 1 Medical 100 mcg dose, Sat Branch 11/15/18 at 1530, Routine FENTanyl PF 2019- No 75ug 75 mcg, Un you (SUBLIMAZE 11-15 Slow IV ity o f (PF)) 18:30: 17:34 Push, [place] injection 00 :00 ONCE, 1 Medical 75 mcg dose, Sat Branch 11/15/18 at 1330, STAT pantoprazol 2019- No 8mg/h 8 mg/hr U nivers e 11-15 (50 ity of (PROTONIX) 18:30: 22:51 mL/hr), IV [place] 80 mg in 00 :49 Piggyback, Medic al NaCl 0.9% CONTINUOUS Bran ch (NS) 500 mL , Starting infusion 11/15/18 at 1330, Until 11/15/18 at 1751, 500 mL pantoprazol 2019- No 80mg 80 mg, IV Univers e 11-15 Push, ity of (PROTONIX) 18:30: 17:37 ONCE, 1 [place] 80 mg in 00 :00 dose, Sat Medica l NaCl 0.9% 11/15/18 at [facility] h (NS) 20 mL 1330, 20 syringe [...] ONCE, 1 Medical 50 mcg dose, Sat [place] 11/15/18 at 1045, Routine ondansetron 2018- No 4mg 4 mg, Slow Univers (ZOFRAN 11-15 IV Push, ity of (PF)) 15:45: 14:55 ONCE, 1 [place] injection 4 00 :00 dose, Sat Med ical mg 11/15/18 at Branch 1045, [place] traMADol 2019- No [id number] 50mg Take 1 Univers (ULTRAM) 50 10-31 9103 tablet by it y of mg tablet 00:00: 00:00 mouth [place] 00 :00 every 8 Medical (eight) Branch hours as needed for Pain (scale 4-6). BARB 2018-0 Yes Take by Univers 36,000-114, 7-11 [...] 3 ity o f 000- 00:00: (three) [place] 180,000 00 times Medical unit CpDR daily [...] 3 ity o f 000- 00:00: (three) [place] 180,000 00 times Medical unit CpDR daily [...] CpDR daily with Bran ch meals. CREON 0 2020- No Take by Univers 36,000-114, 7-11 04-05 mouth 3 ity of 000- 00:00: 00:00 (three) [place] 180,000 00 :00 times Medical unit CpDR daily with Bran ch meals. CREON 2018-0 2020- No Take by Univers 36,000-114, 7-11 04-05 mouth 3 ity of 000- 00:00: 00:00 (three) [place] 180,000 00 :00 times Medical unit CpDR daily with Bran ch meals. dicyclomine 2018- No [id number] 20mg Take 1 Univers (BENTYL) 20 09-09 08-03 tablet by it y of mg tablet 00:00: 00:00 mouth 4 [place] 00 :00 (four) Medical times Branch daily as needed for Abdominal pain. ondansetron 2018- No [id number] 4mg Take 1 Univers (ZOFRAN) 4 09-09 08-03 tablet by ity of mg tablet 00:00: 00:00 mouth [place] 00 :00 every 8 Medical (eight) Branch hours as needed for Nausea and Vomiting (N/V). amLODIPine 2018- No [id number] 5mg Take 2 Univers 2.5 mg 07-21-03 tablets by ity of tablet 00:00: 00:00 mouth at [place] 00 :00 bedtime. Medical Branch proMETHazin 2018- No [id number] 25mg Take 1 Univers e 25 mg 07-21- tablet by ity of tablet 00:00: 00:00 mouth [place] 00 :00 every 6 Medical (six) Branch hours as needed for Nausea and Vomiting (N/V). famotidine 2017-04- No 20mg Take 1 Univ ers (PEPCID) 20 2-10 20-03 tablet by it y of mg tablet 00:00: 00:00 mouth 2 [place] 00 :00 (two) Medical times Branch daily. furosemide 2015-04- No 20mg Take 1 Univ ers (LASIX) 20 05-01-03 tablet by ity of mg tablet 00:00: 00:00 mouth [place] 00 :00 every Medical morning. Branch KCL 2015-04 2019- No 20meq Take 1 Univers (KLOR-CON 05-01 08-03 tablet by ity of M20) 20 mEq 00:[place] daily. [facility] dicyclomine 2018- No 20mg Take 1 Uni vers (BENTYL) 20 5-03 08-03 tablet by it y of mg tablet 00:00[place] ([place] Medical times Branch daily. ondansetron 2015-1 2019- No 4mg Take 1 Tab Univers (ZOFRAN, 1-18 -03 by mouth ity of HYDROCHLORI 00:00: 00:00 every 8 [place],) 4 mg 00 :00 (eight) Medical tablet hours. Branch Losartan Losartan Yes [place] 1 tablet Common Potassium Potassium Spiri t [facility] Lexapro Lexapro Yes [place] 1 tablet Co mmon [facility] Seroquel XR Seroquel XR Yes [place] 1 tablet Common in the [facility] evening [facility] Phenergan Phenergan Yes [place] one tablet Common [facility] Doxycycline Doxycycline Yes [place] 1 capsule Common Hyclate Hyclate [facility] Azithromyci Azithromyci Yes [place] 2 tablets Common n n on the [facility] first day, - [facility] [address] [facility] for Medical 4 days Center Robaxin-750 Robaxin-750 Yes [place] 1 tablet Common [facility] Flonase Flonase Yes [place] 2 spray in Common each [facility] nostril [facility] Diazepam Diazepam Yes [place] 1 tablet Common as needed [facility] PredniSONE PredniSONE Yes [place] 2 tablet Common daily x 5 days then - [facility] one tablet [facility] daily x 5 [facility] Gabapentin Gabapentin Yes [place] 1 capsule Common [facility] Losartan Losartan Yes Na [place]ade TAKE 1 Co mmon Potassium Potassium TABLET BY Spirit MOUTH - [facility] EVERY DAY [facility] Immunizations Ordered Filled Immunization Date Status Comments [facility] e Immunization Name Name SARS-COV-2 COVID-19 2021-03-25 Completed Unive rsity of MODERNA BOOSTER 00:00:00 [facility] ical VACCINE Branch SARS-COV-2 COVID-19 2021-03-25 Completed Unive rsity of MODERNA BOOSTER 00:00:00 [facility] ical VACCINE Branch SARS-COV-2 COVID-19 2021-03-25 Completed Unive rsity of MODERNA BOOSTER 00:00:00 [facility] VACCINE Branch SARS-COV-2 COVID-19 2021-03-25 Completed [...] COVID-19 2021-03-25 Completed Unive rsity of MODERNA 0.25ML 00:00:00 [place] [facility] [facility] BOOST[facility] VACCINE Branch SARS-COV-2 COVID-19 2021-03-25 Completed Unive rsity of MODERNA 0.25ML 00:00:00 [place] [facility] [facility] BOOSTER VACCINE Branch SARS-COV-2 COVID-19 2021-03-25 Completed Unive rsity of MODERNA 0.25ML 00:00:00 [place] [facility] BOOSTER VACCINE Branch SARS-COV-2 COVID-19 2021-03-25 Completed Unive rsity of MODERNA 0.25ML 00:00:00 [place] [facility] [facility] VACCINE Branch SARS-COV-2 COVID-19 2021-03-25 Completed Unive rsity of MODERNA 0.25ML 00:00:00 [place] [facility] [facility] BOOSTER VACCINE Branch SARS-COV-2 COVID-19 2021-03-25 Completed Unive rsity of MODERNA 0.25ML 00:00:00 [place] [facility] BOOSTER VACCINE Branch SARS-COV-2 COVID-19 2021-03-25 Completed Unive rsity of MODERNA 0.25ML 00:00:00 [place] [facility] [facility] BOOSTER VACCINE Branch SARS-COV-2 COVID-19 2021-03-25 Completed Unive rsity of MODERNA 0.25ML 00:00:00 [place] [facility] [facility] BOOSTER VACCINE Branch SARS-COV-2 COVID-19 2021-03-25 Completed Unive rsity of MODERNA 0.25ML 00:00:00 [place] [facility] [facility] BOOSTER VACCINE Branch SARS-COV-2 COVID-19 2021-03-25 Completed Unive rsity of MODERNA 0.25ML 00:00:00 [place] [facility] [facility] BOOSTER VACCINE Branch SARS-COV-2 COVID-19 2021-03-25 Completed Unive rsity of MODERNA 0.25ML 00:00:00 [place] [facility] [facility] BOOSTER VACCINE Branch SARS-COV-2 COVID-19 2020-07-19 Completed Unive [...] Unive rsity of MODERNA VACCINE 00:00:00 [place] [facility] ical Branch SARS-COV-2 COVID-19 2020-05-22 Completed Unive rsity of MODERNA VACCINE 00:00:00 [place] [facility] SARS-COV-2 COVID-19 2020-05-22 Completed Unive rsity of MODERNA VACCINE 00:00:00 [place] [facility] ical Branch SARS-COV-2 COVID-19 2020-05-22 Completed Unive rsity of MODERNA VACCINE 00:00:00 [place] [facility] SARS-COV-2 COVID-19 2020-05-22 Completed Unive rsity of MODERNA VACCINE 00:00:00 [place] [facility] ical Branch SARS-COV-2 COVID-19 2020-05-22 Completed Unive rsity of MODERNA VACCINE 00:00:00 [place] [facility] ical Branch SARS-COV-2 COVID-19 2020-05-22 Completed Unive rsity of MODERNA VACCINE 00:00:[address] [facility] SARS-COV-2 COVID-19 2020-05-22 Completed Unive rsity of MODERNA VACCINE 00:00:[address] [facility] SARS-COV-2 COVID-19 2020-05-22 Completed Unive rsity of MODERNA VACCINE 00:00:[address] [facility] SARS-COV-2 COVID-19 2020-05-22 Completed Unive rsity of MODERNA VACCINE 00:00:[address] [facility] SARS-COV-2 COVID-19 2020-05-22 Completed Unive rsity of MODERNA VACCINE 00:00:[address] [facility] SARS-COV-2 COVID-19 2020-05-22 Completed Unive rsity of MODERNA VACCINE 00:00:[address] [facility] SARS-COV-2 COVID-19 2020-05-22 Completed Unive rsity of MODERNA VACCINE 00:00:[address] [facility] SARS-COV-2 COVID-19 2020-05-22 Completed Unive rsity of MODERNA VACCINE 00:00:[address] [facility] SARS-COV-2 COVID-19 2020-05-22 Completed Unive rsity of MODERNA VACCINE 00:00:[address] [facility] SARS-COV-2 COVID-19 2020-05-22 Completed Unive rsity of MODERNA VACCINE 00:00:[address] [facility] Influenza TIV (IM) 2013-02-[address] [facility] 00:00:00 [facility] Influenza Virus 2013-02-27 Completed Universit y of Vaccine 00:00:00 [facility] Influenza Virus 2013-02-27 Completed Universit y of Vaccine 00:00:00 [facility] Influenza Virus 2013-02-27 Completed Universit y of Vaccine 00:00:00 [facility] Influenza Virus 2013-02-27 Completed Universit y of Vaccine 00:00:00 [facility] Influenza Virus 2013-02-27 Completed Universit y of Vaccine 00:00:00 [facility] Influenza Virus 2013-02-27 Completed Universit y of Vaccine 00:00:00 [facility] Influenza Virus 2013-02-27 Completed Universit y of Vaccine 00:00:00 [facility] Influenza Virus 2013-02-27 Completed Universit y of Vaccine 00:00:00 [facility] Influenza Virus 2013-02-27 Completed Universit y of Vaccine 00:00:00 [facility] Influenza Virus 2013-02-27 Completed Universit y of Vaccine 00:00:00 [facility] Influenza Virus 2013-02-27 Completed Universit y of Vaccine 00:00:00 [facility] Influenza Virus 2013-02-27 Completed Universit y of Vaccine 00:00:00 [facility] Influenza Virus 2013-02-27 Completed Universit y of Vaccine 00:00:00 [facility] Influenza Virus 2013-02-27 Completed Universit y of Vaccine 00:00:00 [facility] Influenza Virus 2013-02-27 Completed Universit y of Vaccine 00:00:00 [facility] Influenza Virus 2013-02-27 Completed Universit y of Vaccine 00:00:00 [facility] Influenza Virus 2013-02-27 Completed Universit y of Vaccine 00:00:00 [facility] Influenza Virus 2013-02-27 Completed Universit y of Vaccine 00:00:00 [facility] Influenza Virus 2013-02-27 Completed Universit y of Vaccine 00:00:00 [facility] Influenza Virus 2013-02-27 Completed Universit y of Vaccine 00:00:00 [facility] Influenza Virus 2013-02-27 Completed Universit y of Vaccine 00:00:00 [facility] Influenza Virus 2013-02-27 Completed Universit y of Vaccine 00:00:00 [facility] Influenza Virus 2013-02-27 Completed Universit y of Vaccine 00:00:00 [facility] Influenza Virus 2013-02-27 Completed Universit y of Vaccine 00:00:00 [facility] Influenza Virus 2013-02-27 Completed Universit y of Vaccine 00:00:00 [facility] Influenza Virus 2013-02-27 Completed Universit y of Vaccine 00:00:00 [facility] Influenza Virus 2013-02-27 Completed Universit y of Vaccine 00:00:00 [facility] Influenza Virus 2013-02-27 Completed Universit y of Vaccine 00:00:00 [facility] Influenza Virus 2013-02-27 Completed Universit y of Vaccine 00:00:00 [facility] Influenza Virus 2013-02-27 Completed Universit y of Vaccine 00:00:00 [facility] Influenza Virus 2013-02-27 Completed Universit y of Vaccine 00:00:00 [facility] Influenza Virus 2013-02-27 Completed Universit y of Vaccine 00:00:00 [facility] Influenza Virus 2013-02-27 Completed Universit y of Vaccine 00:00:00 [facility] Influenza Virus 2013-02-27 Completed Universit y of Vaccine 00:00:00 [facility] Influenza Virus 2013-02-27 Completed Universit y of Vaccine 00:00:00 [facility] Influenza Virus 2013-02-27 Completed Universit y of Vaccine 00:00:00 [facility] Influenza Virus 2013-02-27 Completed Universit y of Vaccine 00:00:00 [facility] Influenza Virus 2013-02-27 Completed Universit y of Vaccine 00:00:00 [facility] Influenza Virus 2013-02-27 Completed Universit y of Vaccine 00:00:00 [facility] Influenza Virus 2013-02-27 Completed Universit y of Vaccine 00:00:00 [facility] Influenza Virus 2013-02-27 Completed Universit y of Vaccine 00:00:00 [facility] Influenza Virus 2013-02-27 Completed Universit y of Vaccine 00:00:00 [facility] Influenza Virus 2013-02-27 Completed Universit y of Vaccine 00:00:00 [facility] Influenza Virus 2013-02-27 Completed Universit y of Vaccine 00:00:00 [facility] Influenza Virus 2013-02-27 Completed Universit y of Vaccine 00:00:00 [facility] Influenza Virus 2013-02-27 Completed Universit y of Vaccine 00:00:00 [facility] Influenza Virus 2013-02-27 Completed Universit y of Vaccine 00:00:00 [facility] Influenza Virus 2013-02-27 Completed Universit y of Vaccine 00:00:00 [facility] Influenza Virus 2013-02-27 Completed Universit y of Vaccine 00:00:00 [facility] Influenza Virus 2013-02-27 Completed Universit y of Vaccine 00:00:00 [facility] Influenza Virus 2013-02-27 Completed Universit y of Vaccine 00:00:00 [facility] Influenza Virus 2013-02-27 Completed Universit y of Vaccine 00:00:00 [facility] Influenza Virus 2013-02-27 Completed Universit y of Vaccine 00:00:00 [facility] Influenza Virus 2013-02-27 Completed Universit y of Vaccine 00:00:00 [facility] Influenza Virus 2013-02-27 Completed Universit y of Vaccine 00:00:00 [facility] Influenza Virus 2013-02-27 Completed Universit y of Vaccine 00:00:00 [facility] Influenza Virus 2013-02-27 Completed Universit y of Vaccine 00:00:00 [facility] Influenza Virus 2013-02-27 Completed Universit y of Vaccine 00:00:00 [facility] Influenza Virus 2013-02-27 Completed Universit y of Vaccine 00:00:00 [facility] Influenza Virus 2013-02-27 Completed Universit y of Vaccine 00:00:00 [facility] Influenza Virus 2013-02-27 Completed Universit y of Vaccine 00:00:00 [facility] Influenza Virus 2013-02-27 Completed Universit y of Vaccine 00:00:00 [facility] Influenza Virus 2013-02-27 Completed Universit y of Vaccine 00:00:00 [facility] Influenza Virus 2013-02-27 Completed Universit y of Vaccine 00:00:00 [facility] Influenza Virus 2013-02-27 Completed Universit y of Vaccine 00:00:00 [facility] Vital Signs Vital Name Observation Time Observation Value Comments Source WEIGHT 2020-09-05 85.548 kg 19:05:00 WEIGHT 2020-08-28 83.9 kg 04:41:00 WEIGHT 2020-08-27 84.959 kg 05:27:00 WEIGHT 2020-08-26 85.821 kg 02:50:00 HEIGHT 2020-08-26 152.4 cm 02:50:00 Systolic blood 2021-11-02 159 mm[Hg] [place] of pressure 13:00:00 [facility] Diastolic blood 2021-11-02 98 mm[Hg] [place] o f pressure 13:00:00 [facility] Heart rate 2021-11-02 90 /min [facility] 13:00:00 [facility] Respiratory rate 2021-11-02 14 /min [facility] 13:00:00 [facility] Oxygen saturation 2021-11-02 97 /min [facility] Arterial blood 13:00:00 [facility] by Pulse oximetry [place] Body temperature 2021-11-02 37.06 Roro [facility] 09:49:00 [facility] Body height 2021-11-02 152.4 cm [facility] 09:49:00 [facility] Body weight 2021-11-02 77.111 kg University of 09:49:00 [facility] BMI 2021-11-02 33.20 kg/m2 University of 09:49:00 [facility] Heart rate 2021-09-29 63 /min University of 15:42:00 [facility] Respiratory rate 2021-09-29 18 /min University of 15:42:00 [facility] Oxygen saturation 2021-09-29 99 /min University of in Arterial blood 15:42:00 [facility] brandy by Pulse oximetry Branch Systolic blood 2021-09-29 124 mm[Hg] University of pressure 15:40:00 [place] [facility] Diastolic blood 2021-09-29 85 mm[Hg] University o f pressure 15:40:00 [facility] Body temperature 2021-09-29 36.39 Roro University of 14:41:00 [facility] Body height 2021-09-20 152.4 cm University of 15:00:00 [facility] Body weight 2021-09-20 78.5 kg University of 15:00:00 [facility] BMI 2021-09-20 33.80 kg/m2 University of 15:00:00 [facility] Systolic blood 2021-09-29 138 mm[Hg] University of pressure 15:15:00 [facility] Diastolic blood 2021-09-29 80 mm[Hg] University o f pressure 15:15:00 [facility] Heart rate 2021-09-29 63 /min University of 15:15:00 [facility] Respiratory rate 2021-09-29 11 /min University of 15:15:00 [facility] Oxygen saturation 2021-09-29 99 /min University of in Arterial blood 15:15:00 [facility] brandy by Pulse oximetry Branch Body temperature 2021-09-29 36.39 Roro University of 14:41:00 [facility] Body height 2021-09-20 152.4 cm University of 15:00:00 [facility] Body weight 2021-09-20 78.5 kg University of 15:00:00 [facility] BMI 2021-09-20 33.80 kg/m2 University of 15:00:00 [facility] Respiratory rate 2021-09-29 10 /min University of 14:31:00 [facility] Systolic blood 2021-09-08 112 mm[Hg] University of pressure 21:35:00 [facility] Branch Diastolic blood 2021-09-08 77 mm[Hg] University o f pressure 21:35:00 [facility] Heart rate 2021-09-08 64 /min University of 21:35:00 [facility] Body temperature 2021-09-08 36.22 Roro University of 21:35:00 [facility] Respiratory rate 2021-09-08 18 /min University of 21:35:00 [facility] Oxygen saturation 2021-09-08 100 /min University of in Arterial blood 21:35:00 [facility] brandy by Pulse oximetry Branch Body height 2021-09-02 152.4 cm University of 00:59:00 [facility] Body weight 2021-09-02 78.5 kg University of 00:59:00 [facility] BMI 2021-09-02 33.80 kg/m2 University of 00:59:00 [facility] Systolic blood 2021-08-27 169 mm[Hg] University of pressure 20:00:00 [facility] Diastolic blood 2021-08-27 103 mm[Hg] University o f pressure 20:00:00 [facility] Heart rate 2021-08-27 66 /min University of 20:00:00 [facility] Respiratory rate 2021-08-27 11 /min University of 20:00:00 [facility] Oxygen saturation 2021-08-27 98 /min [facility] in Arterial blood 20:00:00 [facility] by Pulse oximetry [place] Body temperature 2021-08-27 36.17 Roro Simultaneous University of 15:50:00 filing. User may [place] [facility] not have seen Branch previous data. Body height 2021-08-27 152.4 cm University of 15:50:00 [facility] Body weight 2021-08-27 81.647 kg University of 15:50:00 [facility] BMI 2021-08-27 35.15 kg/m2 University of 15:50:00 [facility] Systolic blood 2021-07-29 154 mm[Hg] University of pressure 16:16:00 [facility] Diastolic blood 2021-07-29 91 mm[Hg] University o f pressure 16:16:00 [facility] Heart rate 2021-07-29 92 /min University of 16:16:00 [facility] Body temperature 2021-07-29 36.44 Roro University of 16:16:00 [facility] Respiratory rate 2021-07-29 16 /min University of 16:16:00 [facility] Oxygen saturation 2021-07-29 98 /min University of in Arterial blood 16:16:00 [place] [facility] by Pulse oximetry Branch Body weight 2021-07-28 86.63 kg University of 18:00:00 [facility] BMI 2021-07-28 37.30 kg/m2 University of 18:00:00 [facility] Body height 2021-07-24 152.4 cm University of 00:00:00 [facility] Systolic blood 2021-07-04 141 mm[Hg] University of pressure 18:05:00 [facility] Diastolic blood 2021-07-04 95 mm[Hg] University o f pressure 18:05:00 [facility] Heart rate 2021-07-04 64 /min University of 18:05:00 [facility] Respiratory rate 2021-07-04 11 /min University of 18:05:00 [facility] Oxygen saturation 2021-07-04 96 /min University of in Arterial blood 18:05:00 [place] [facility] by Pulse oximetry Branch Body temperature 2021-07-04 36.39 Roro University of 17:48:00 [facility] Body height 2021-07-03 152.4 cm University of 19:51:00 [facility] Body weight 2021-07-03 81.6 kg University of 19:51:00 [facility] BMI 2021-07-03 35.13 kg/m2 University of 19:51:00 [facility] Systolic blood 2021-07-04 141 mm[Hg] University of pressure 15:45:00 [facility] Diastolic blood 2021-07-04 97 mm[Hg] University o f pressure 15:45:00 [facility] Heart rate 2021-07-04 81 /min University of 15:45:00 [facility] Body temperature 2021-07-04 36.39 Roro University of 15:45:00 [facility] Respiratory rate 2021-07-04 20 /min University of 15:45:00 [facility] Oxygen saturation 2021-07-04 100 /min University of in Arterial blood 15:45:00 [place] [facility] by Pulse oximetry Branch Body height 2021-07-03 152.4 cm University of 19:51:00 [facility] Body weight 2021-07-03 81.6 kg University of 19:51:00 [facility] BMI 2021-07-03 35.13 kg/m2 University of 19:51:00 [facility] Systolic blood 2021-06-04 164 mm[Hg] University of pressure 04:00:00 [facility] Diastolic blood 2021-06-04 104 mm[Hg] University o f pressure 04:00:00 [facility] Heart rate 2021-06-04 64 /min University of 04:00:00 [facility] Oxygen saturation 2021-06-04 98 /min University of in Arterial blood 04:00:00 [facility] brandy by Pulse oximetry Branch Respiratory rate 2021-06-04 11 /min University of 03:00:00 [facility] Body temperature 2021-06-03 35.89 Roro University of 19:49:00 [facility] Body height 2021-06-03 152.4 cm University of 19:49:00 [facility] Body weight 2021-06-03 81.647 kg University of 19:49:00 [facility] BMI 2021-06-03 35.15 kg/m2 University of 19:49:00 [facility] Systolic blood 2021-05-22 151 mm[Hg] University of pressure 07:00:00 [facility] Diastolic blood 2021-05-22 97 mm[Hg] University o f pressure 07:00:00 [facility] Heart rate 2021-05-22 93 /min University of 07:00:00 [facility] Oxygen saturation 2021-05-22 96 /min University of in Arterial blood 07:00:00 [facility] by Pulse oximetry Branch Body temperature 2021-05-22 37.61 Roro University of 05:24:00 [facility] Respiratory rate 2021-05-22 20 /min University of 05:24:00 [facility] Body height 2021-05-22 152.4 cm University of 05:24:00 [facility] Body weight 2021-05-22 81.647 kg University of 05:24:00 [facility] BMI 2021-05-22 35.15 kg/m2 University of 05:24:00 [facility] Systolic blood 2021-05-18 139 mm[Hg] University of pressure 15:16:00 [facility] Branch Diastolic blood 2021-05-18 86 mm[Hg] University o f pressure 15:16:00 [facility] Heart rate 2021-05-18 85 /min University of 15:16:00 [facility] Body temperature 2021-05-18 36.39 Roro University of 15:16:00 [facility] Respiratory rate 2021-05-18 18 /min University of 15:16:00 [facility] Body height 2021-05-18 152.4 cm University of 15:16:00 [facility] Body weight 2021-05-18 87.862 kg University of 15:16:00 [facility] BMI 2021-05-18 37.83 kg/m2 University of 15:16:00 [facility] Oxygen saturation 2021-05-18 97 /min University of in Arterial blood 15:16:00 [place] [facility] by Pulse oximetry Branch Systolic blood 2021-04-15 163 mm[Hg] University of pressure 19:38:00 [facility] Diastolic blood 2021-04-15 105 mm[Hg] University o f pressure 19:38:00 [facility] Heart rate 2021-04-15 98 /min University of 19:38:00 [facility] Body temperature 2021-04-15 37.06 Roro University of 19:38:00 [facility] Respiratory rate 2021-04-15 18 /min University of 19:38:00 [facility] Body height 2021-04-15 152.4 cm University of 19:38:00 [facility] Body weight 2021-04-15 81.647 kg University of 19:38:00 [facility] BMI 2021-04-15 35.15 kg/m2 University of 19:38:00 [facility] Oxygen saturation 2021-04-15 97 /min University of in Arterial blood 19:38:00 [place] [facility] by Pulse oximetry Branch Systolic blood 2021-04-15 140 mm[Hg] University of pressure 19:20:00 [facility] Diastolic blood 2021-04-15 98 mm[Hg] University o f pressure 19:20:00 [facility] Heart rate 2021-04-15 109 /min University of 19:20:00 [facility] Body temperature 2021-04-15 36.94 Roro University of 19:20:00 [facility] Respiratory rate 2021-04-15 17 /min University of 19:20:00 [facility] Body weight 2021-04-15 84.596 kg University of 19:20:00 [facility] BMI 2021-04-15 36.42 kg/m2 University of 19:20:00 [facility] Oxygen saturation 2021-04-15 98 /min University of in Arterial blood 19:20:00 [place] [facility] by Pulse oximetry Branch Systolic blood 2021-03-26 138 mm[Hg] University of pressure 03:00:00 [facility] Diastolic blood 2021-03-26 89 mm[Hg] University o f pressure 03:00:00 [facility] Heart rate 2021-03-26 75 /min University of 03:00:00 [facility] Respiratory rate 2021-03-26 12 /min University of 03:00:00 [facility] Oxygen saturation 2021-03-26 99 /min University of in Arterial blood 03:00:00 [facility] brandy by Pulse oximetry Branch Body temperature 2021-03-26 37 Roro [place] of 01:02:09 [facility] Body height 2021-03-26 152.4 cm University of 00:10:00 [facility] Body weight 2021-03-26 80.74 kg University of 00:10:00 [facility] BMI 2021-03-26 34.76 kg/m2 University of 00:10:00 [facility] Systolic blood 2021-03-21 173 mm[Hg] University of pressure 01:28:00 [facility] Diastolic blood 2021-03-21 104 mm[Hg] University o f pressure 01:28:00 [facility] Heart rate 2021-03-21 74 /min University of 01:28:00 [facility] Respiratory rate 2021-03-21 22 /min University of 01:28:00 [facility] Oxygen saturation 2021-03-21 96 /min [facility] in Arterial blood 01:28:00 [facility] by Pulse oximetry Branch Body temperature 2021-03-20 37.17 [place] [facility] of 21:59:00 [facility] Body weight 2021-03-20 81.647 kg University of 21:59:00 [facility] BMI 2021-03-20 35.15 kg/m2 University of 21:59:00 [facility] Systolic blood 2021-02-13 159 mm[Hg] [facility] of pressure 02:02:00 [facility] Diastolic blood 2021-02-13 95 mm[Hg] [facility] o f pressure 02:02:00 [facility] Body temperature 2021-02-13 36.67 [place] [facility] 02:02:00 [facility] Respiratory rate 2021-02-13 17 /min [facility] of 02:02:00 [facility] Oxygen saturation 2021-02-13 93 /min [facility] in Arterial blood 02:02:00 [facility] by Pulse oxim[facility] Heart rate 2021-02-13 73 /min University of 01:00:00 [facility] Body height 2021-02-12 152.4 cm University of 19:07:00 [facility] Body weight 2021-02-12 86.183 kg University of 19:07:00 [facility] BMI 2021-02-12 37.11 kg/m2 University of 19:07:00 [facility] Systolic blood 2021-01-18 155 mm[Hg] [facility] pressure 05:45:00 [facility] Diastolic blood 2021-01-18 93 mm[Hg] [facility] o f pressure 05:45:00 [facility] Heart rate 2021-01-18 86 /min University 05:45:00 [facility] Respiratory rate 2021-01-18 14 /min [facility] of 05:45:00 [facility] Oxygen saturation 2021-01-18 99 /min [facility] in Arterial blood 05:45:00 [facility] by Pulse oximetry [place] Body temperature 2021-01-18 37.06 [place] [facility] of 02:32:00 [facility] Body height 2021-01-18 152.4 cm University of 02:32:00 [facility] Body weight 2021-01-18 86.183 kg University of 02:32:00 [facility] BMI 2021-01-18 37.11 kg/m2 University of 02:32:00 [facility] Systolic blood 2021-01-07 117 mm[Hg] [facility] pressure 16:25:00 [facility] Diastolic blood 2021-01-07 79 mm[Hg] [facility] f pressure 16:25:00 [facility] Heart rate 2021-01-07 85 /min [facility] of 16:25:00 [facility] Body temperature 2021-01-07 36.89 [place] [facility] 16:25:00 [facility] Respiratory rate 2021-01-07 16 /min [facility] of 16:25:00 [facility] Body height 2021-01-07 152.4 cm University of 16:25:00 [facility] Body weight 2021-01-07 77.111 kg University of 16:25:00 [facility] BMI 2021-01-07 33.20 kg/m2 University of 16:25:00 [facility] Oxygen saturation 2021-01-07 96 /min [facility] in Arterial blood 16:25:00 [facility] by Pulse oximetry Branch Systolic blood 2020-12-30 148 mm[Hg] [facility] of pressure 22:35:00 [facility] Diastolic blood 2020-12-30 107 mm[Hg] University o f pressure 22:35:00 [facility] Heart rate 2020-12-30 78 /min [facility] of 22:35:00 [facility] Respiratory rate 2020-12-30 18 /min [facility] of 22:35:00 [facility] Oxygen saturation 2020-12-30 97 /min [facility] in Arterial blood 22:35:00 [facility] by Pulse oximetry [facility] Body temperature 2020-12-30 37.44 [place] [facility] of 18:12:00 [facility] Body height 2020-12-30 152.4 cm University of 18:12:00 [facility] Body weight 2020-12-30 77.111 kg University of 18:12:00 [facility] BMI 2020-12-30 33.20 kg/m2 University of 18:12:00 [facility] Systolic blood 2020-12-30 122 mm[Hg] [facility] pressure 15:13:00 [facility] Diastolic blood 2020-12-30 87 mm[Hg] [facility] o f pressure 15:13:00 [facility] Heart rate 2020-12-30 83 /min [facility] of 15:13:00 [facility] Body temperature 2020-12-30 36.83 [place] [facility] 15:13:00 [facility] Respiratory rate 2020-12-30 18 /min [facility] of 15:13:00 [facility] Body height 2020-12-30 152.4 cm University of 15:13:00 [facility] Body weight 2020-12-30 83.553 kg University of 15:13:00 [facility] BMI 2020-12-30 35.97 kg/m2 University of 15:13:00 [facility] Systolic blood 2020-12-16 123 mm[Hg] [facility] of pressure 15:21:00 [facility] Diastolic blood 2020-12-16 90 mm[Hg] [facility] o f pressure 15:21:00 [facility] Heart rate 2020-12-16 81 /min [facility] of 15:21:00 [facility] Body temperature 2020-12-16 36.83 [place] [facility] 15:21:00 [facility] Respiratory rate 2020-12-16 18 /min [facility] of 15:21:00 [facility] Body height 2020-12-16 152.4 cm University of 15:21:00 [facility] Body weight 2020-12-16 83.915 kg University of 15:21:00 [facility] BMI 2020-12-16 36.13 kg/m2 University of 15:21:00 [facility] Systolic blood 2020-12-05 167 mm[Hg] [facility] of pressure 22:45:00 [facility] Diastolic blood 2020-12-05 101 mm[Hg] [facility] o f pressure 22:45:00 [facility] Heart rate 2020-12-05 76 /min [facility] of 22:45:00 [facility] Respiratory rate 2020-12-05 20 /min [facility] of 22:45:00 [facility] Oxygen saturation 2020-12-05 97 /min [facility] in Arterial blood 22:45:00 [facility] by Pulse oximetry [facility] Body temperature 2020-12-05 37.11 [place] [facility] 19:05:00 [facility] Body weight 2020-12-05 77.111 kg University of 19:05:00 [facility] BMI 2020-12-05 33.20 kg/m2 University of 19:05:00 [facility] Systolic blood 2020-10-12 111 mm[Hg] [facility] pressure 20:04:00 [facility] Diastolic blood 2020-10-12 77 mm[Hg] [facility] o f pressure 20:04:00 [facility] Heart rate 2020-10-12 74 /min [facility] of 20:04:00 [facility] Body temperature 2020-10-12 36.06 [place] [facility] 20:04:00 [facility] Respiratory rate 2020-10-12 18 /min [facility] of 20:04:00 [facility] Oxygen saturation 2020-10-12 97 /min [facility] in Arterial blood 20:04:00 [facility] Pulse o[facility] Body height 2020-10-12 152.4 cm University of 02:36:00 [facility] Body weight 2020-10-12 84.46 kg University of 02:36:00 [facility] BMI 2020-10-12 36.36 kg/m2 University of 02:36:00 [facility] Systolic blood 2020-10-12 111 mm[Hg] [facility] pressure 20:04:00 [facility] Diastolic blood 2020-10-12 77 mm[Hg] [facility] o f pressure 20:04:00 [facility] Heart rate 2020-10-12 74 /min [facility] of 20:04:00 [facility] Body temperature 2020-10-12 36.06 [place] [facility] 20:04:00 [facility] Respiratory rate 2020-10-12 18 /min [facility] of 20:04:00 [facility] Oxygen saturation 2020-10-12 97 /min [place] of in Arterial blood 20:04:00 [facility] by Pulse oximetry Branch Body height 2020-10-12 152.4 cm University of 02:36:00 [facility] Body weight 2020-10-12 84.46 kg University of 02:36:00 [facility] BMI 2020-10-12 36.36 kg/m2 University of 02:36:00 [facility] Systolic blood 2020-10-05 129 mm[Hg] [facility] pressure 01:00:00 [facility] Diastolic blood 2020-10-05 88 mm[Hg] [facility] o f pressure 01:00:00 [facility] Heart rate 2020-10-05 72 /min [place] of 01:00:00 [facility] Respiratory rate 2020-10-05 18 /min University of 01:00:00 [facility] Oxygen saturation 2020-10-05 95 /min [facility] in Arterial blood 01:00:00 [facility] by Pulse oximetry [facility] Body temperature 2020-10-04 37.72 [place] [facility] 22:44:00 [facility] Body weight 2020-10-04 77.111 kg University of 22:44:00 [facility] BMI 2020-10-04 33.20 kg/m2 University of 22:44:00 [facility] Systolic blood 2020-10-05 129 mm[Hg] [facility] pressure 01:00:00 [facility] Diastolic blood 2020-10-05 88 mm[Hg] [facility] o f pressure 01:00:00 [facility] Heart rate 2020-10-05 72 /min [facility] of 01:00:00 [facility] Respiratory rate 2020-10-05 18 /min [facility] of 01:00:00 [facility] Oxygen saturation 2020-10-05 95 /min [facility] in Arterial blood 01:00:00 [facility] by Pulse oximetry [facility] Body temperature 2020-10-04 37.72 [place] [facility] of 22:44:00 [facility] Body weight 2020-10-04 77.111 kg University of 22:44:00 [facility] BMI 2020-10-04 33.20 kg/m2 University of 22:44:00 [facility] WEIGHT 2020-09-05 85.548 kg 19:05:00 WEIGHT 2020-08-28 83.9 kg 04:41:00 WEIGHT 2020-08-27 84.959 kg 05:27:00 WEIGHT 2020-08-26 85.821 kg 02:50:00 HEIGHT 2020-08-26 152.4 cm 02:50:00 Systolic blood 2020-08-05 157 mm[Hg] [facility] pressure 13:12:00 [facility] Diastolic blood 2020-08-05 128 mm[Hg] [facility] o f pressure 13:12:00 [facility] Heart rate 2020-08-05 95 /min [facility] of 13:12:00 [facility] Body temperature 2020-08-05 36.67 [place] [facility] 13:12:00 [facility] Respiratory rate 2020-08-05 18 /min [facility] of 13:12:00 [facility] Body weight 2020-08-05 77.111 kg University of 13:12:00 [facility] BMI 2020-08-05 33.20 kg/m2 University of 13:12:00 [facility] Oxygen saturation 2020-08-05 98 /min [facility] in Arterial blood 13:12:00 [facility] by Pulse oximetry [facility] Systolic blood 2020-08-05 157 mm[Hg] [facility] pressure 13:12:00 [facility] Diastolic blood 2020-08-05 128 mm[Hg] [facility] o f pressure 13:12:00 [facility] Heart rate 2020-08-05 95 /min [facility] of 13:12:00 [facility] Body temperature 2020-08-05 36.67 [place] [facility] 13:12:00 [facility] Respiratory rate 2020-08-05 18 /min [facility] of 13:12:00 [facility] Body weight 2020-08-05 77.111 kg University of 13:12:00 [facility] BMI 2020-08-05 33.20 kg/m2 University of 13:12:00 [facility] Oxygen saturation 2020-08-05 98 /min [facility] in Arterial blood 13:12:00 [facility] by Pulse oximetry [facility] Systolic blood 2020-07-18 184 mm[Hg] [facility] pressure 13:22:00 [facility] Diastolic blood 2020-07-18 110 mm[Hg] [facility] o f pressure 13:22:00 [facility] Heart rate 2020-07-18 71 /min [facility] of 13:22:00 [facility] Respiratory rate 2020-07-18 18 /min [facility] of 13:22:00 [facility] Oxygen saturation 2020-07-18 100 /min [facility] in Arterial blood 13:22:00 [facility] by Pulse oximetry [facility] Body temperature 2020-07-18 36.56 [place] [facility] of 12:49:00 [facility] Body height 2020-07-14 152.4 cm University of 16:45:00 [facility] Body weight 2020-07-14 77.111 kg University of 16:45:00 [facility] BMI 2020-07-14 33.20 kg/m2 University of 16:45:00 [facility] Systolic blood 2020-07-18 184 mm[Hg] [facility] of pressure 13:22:00 [facility] Diastolic blood 2020-07-18 110 mm[Hg] University o f pressure 13:22:00 [facility] Heart rate 2020-07-18 71 /min [facility] of 13:22:00 [facility] Respiratory rate 2020-07-18 18 /min [facility] of 13:22:00 [facility] Oxygen saturation 2020-07-18 100 /min [facility] in Arterial blood 13:22:00 [facility] by Pulse oximetry [facility] Body temperature 2020-07-18 36.56 [place] [facility] of 12:49:00 [facility] Body height 2020-07-14 152.4 cm University of 16:45:00 [facility] Body weight 2020-07-14 77.111 kg University of 16:45:00 [facility] BMI 2020-07-14 33.20 kg/m2 University of 16:45:00 [facility] Systolic blood 2020-07-18 180 mm[Hg] [facility] pressure 12:59:00 [facility] Diastolic blood 2020-07-18 88 mm[Hg] [facility] o f pressure 12:59:00 [facility] Heart rate 2020-07-18 74 /min [facility] of 12:59:00 [facility] Respiratory rate 2020-07-18 17 /min [facility] of 12:59:00 [facility] Oxygen saturation 2020-07-18 100 /min [facility] in Arterial blood 12:59:00 [facility] Body temperature 2020-07-18 36.56 [place] [facility] 12:49:00 [facility] Body height 2020-07-14 152.4 cm University of 16:45:00 [facility] Body weight 2020-07-14 77.111 kg University of 16:45:00 [facility] BMI 2020-07-14 33.20 kg/m2 University of 16:45:00 [facility] Systolic blood 2020-07-18 180 mm[Hg] [facility] of pressure 12:59:00 [facility] Diastolic blood 2020-07-18 88 mm[Hg] [facility] o f pressure 12:59:00 [facility] Heart rate 2020-07-18 74 /min [facility] of 12:59:00 [facility] Respiratory rate 2020-07-18 17 /min [facility] of 12:59:00 [facility] Oxygen saturation 2020-07-18 100 /min [facility] in Arterial blood 12:59:00 [facility] by Pulse oximetry [facility] Body temperature 2020-07-18 36.56 [place] [facility] 12:49:00 [facility] Body height 2020-07-14 152.4 cm University of 16:45:00 [facility] Body weight 2020-07-14 77.111 kg University of 16:45:00 [facility] BMI 2020-07-14 33.20 kg/m2 University of 16:45:00 [facility] Systolic blood 2020-07-08 187 mm[Hg] [facility] pressure 02:00:00 [facility] Diastolic blood 2020-07-08 102 mm[Hg] [facility] pressure 02:00:00 [facility] Heart rate 2020-07-08 84 /min [facility] of 02:00:00 [facility] Respiratory rate 2020-07-08 20 /min [facility] of 02:00:00 [facility] Oxygen saturation 2020-07-08 100 /min [facility] in Arterial blood 02:00:00 [facility] by Pulse oximetry [facility] Body temperature 2020-07-07 37.22 [place] [facility] of 23:45:00 [facility] Body weight 2020-07-07 81.194 kg University of 23:45:00 [facility] BMI 2020-07-07 34.96 kg/m2 University of 23:45:00 [facility] Systolic blood 2020-07-08 187 mm[Hg] [facility] pressure 02:00:00 [facility] Diastolic blood 2020-07-08 102 mm[Hg] [facility] o f pressure 02:00:00 [facility] Heart rate 2020-07-08 84 /min [facility] of 02:00:00 [facility] Respiratory rate 2020-07-08 20 /min [facility] of 02:00:00 [facility] Oxygen saturation 2020-07-08 100 /min [facility] in Arterial blood 02:00:00 [facility] by Pulse oximetry [facility] Body temperature 2020-07-07 37.22 [place] [facility] of 23:45:00 [facility] Body weight 2020-07-07 81.194 kg University of :45:00 [facility] BMI 2020-07-07 34.96 kg/m2 University of 23:45:00 [facility] Systolic blood 2020-07-04 168 mm[Hg] [facility] of pressure 13:34:00 [facility] Diastolic blood 2020-07-04 94 mm[Hg] [facility] o f pressure 13:34:00 [facility] Heart rate 2020-07-04 63 /min University of 13:34:00 [facility] Oxygen saturation 2020-07-04 100 /min [facility] in Arterial blood 13:34:00 [facility] by Pulse oximetry [facility] Respiratory rate 2020-07-04 12 /min University of 13:23:00 [facility] Body temperature 2020-07-04 36.72 [place] [facility] of 13:03:00 [facility] Body height 2020-07-01 152.4 cm University of 17:45:00 [facility] Body weight 2020-07-01 81.647 kg University of 17:45:00 [facility] BMI 2020-07-01 35.15 kg/m2 University of 17:45:00 [facility] Systolic blood 2020-07-04 168 mm[Hg] [facility] pressure 13:34:00 [facility] Diastolic blood 2020-07-04 94 mm[Hg] [facility] o f pressure 13:34:00 [facility] Heart rate 2020-07-04 63 /min University of 13:34:00 [facility] Oxygen saturation 2020-07-04 100 /min [facility] in Arterial blood 13:34:00 [facility] Respiratory rate 2020-07-04 12 /min [facility] of 13:23:00 [facility] Body temperature 2020-07-04 36.72 [place] [facility] of 13:03:00 [facility] Body height 2020-07-01 152.4 cm University of 17:45:00 [facility] Body weight 2020-07-01 81.647 kg University of 17:45:00 [facility] BMI 2020-07-01 35.15 kg/m2 University of 17:45:00 [facility] Systolic blood 2020-06-20 148 mm[Hg] [facility] of pressure 14:33:00 [facility] Diastolic blood 2020-06-20 86 mm[Hg] [facility] o f pressure 14:33:00 [facility] Heart rate 2020-06-20 70 /min University of 14:33:00 [facility] Respiratory rate 2020-06-20 11 /min University of 14:33:00 [facility] Oxygen saturation 2020-06-20 98 /min [facility] in Arterial blood 14:33:00 [facility] by Pulse oximetry [facility] Body temperature 2020-06-20 36.33 [place] [facility] of 14:18:00 [facility] Body height 2020-06-20 152.4 cm University of 12:30:00 [facility] Body weight 2020-06-20 81.647 kg University of 12:30:00 [facility] BMI 2020-06-20 35.15 kg/m2 University of 12:30:00 [facility] Systolic blood 2020-06-20 148 mm[Hg] [facility] of pressure 14:33:00 [facility] Diastolic blood 2020-06-20 86 mm[Hg] [facility] o f pressure 14:33:00 [facility] Heart rate 2020-06-20 70 /min University of 14:33:00 [facility] Respiratory rate 2020-06-20 11 /min [facility] of 14:33:00 [facility] Oxygen saturation 2020-06-20 98 /min [facility] in Arterial blood 14:33:00 [facility] Body temperature 2020-06-20 36.33 [place] [facility] 14:18:00 [facility] Body height 2020-06-20 152.4 cm University of 12:30:00 [facility] Body weight 2020-06-20 81.647 kg University of 12:30:00 [facility] BMI 2020-06-20 35.15 kg/m2 University of 12:30:00 [facility] Respiratory rate 2020-06-20 17 /min University of 14:12:00 [facility] Respiratory rate 2020-06-20 17 /min [facility] of 14:12:00 [facility] Systolic blood 2020-05-07 122 mm[Hg] [facility] pressure 00:05:00 [facility] Diastolic blood 2020-05-07 77 mm[Hg] [facility] o f pressure 00:05:00 [facility] Heart rate 2020-05-07 61 /min [facility] of 00:05:00 [facility] Respiratory rate 2020-05-07 17 /min [facility] of 00:05:00 [facility] Oxygen saturation 2020-05-07 100 /min [facility] in Arterial blood 00:05:00 [facility] Body temperature 2020-05-06 37.06 [place] [facility] 21:17:00 [facility] Body height 2020-05-06 152.4 cm University of 21:17:00 [facility] Body weight 2020-05-06 77.111 kg University of 21:17:00 [facility] BMI 2020-05-06 33.20 kg/m2 University of 21:17:00 [facility] Systolic blood 2020-05-07 122 mm[Hg] [facility] pressure 00:05:00 [facility] Diastolic blood 2020-05-07 77 mm[Hg] [facility] o f pressure 00:05:00 [facility] Heart rate 2020-05-07 61 /min [facility] of 00:05:00 [facility] Respiratory rate 2020-05-07 17 /min [facility] of 00:05:00 [facility] Oxygen saturation 2020-05-07 100 /min [facility] in Arterial blood 00:05:00 [facility] Body temperature 2020-05-06 37.06 [place] [facility] 21:17:00 [facility] Body height 2020-05-06 152.4 cm University of 21:17:00 [facility] Body weight 2020-05-06 77.111 kg University of 21:17:00 [facility] BMI 2020-05-06 33.20 kg/m2 University of 21:17:00 [facility] Systolic blood 2020-03-26 170 mm[Hg] [facility] of pressure 07:00:00 [facility] Diastolic blood 2020-03-26 110 mm[Hg] [facility] o f pressure 07:00:00 [facility] Heart rate 2020-03-26 77 /min [facility] of 07:00:00 [facility] Respiratory rate 2020-03-26 18 /min [facility] of 07:00:00 [facility] Oxygen saturation 2020-03-26 96 /min [facility] in Arterial blood 07:00:00 [facility] Body temperature 2020-03-26 37.67 [place] [facility] 03:07:00 [facility] Body height 2020-03-26 152.4 cm University of 03:07:00 [facility] Body weight 2020-03-26 77.111 kg University of 03:07:00 [facility] BMI 2020-03-26 33.20 kg/m2 University of 03:07:00 [facility] Systolic blood 2020-03-26 170 mm[Hg] [facility] of pressure 07:00:00 [facility] Diastolic blood 2020-03-26 110 mm[Hg] [facility] o f pressure 07:00:00 [facility] Heart rate 2020-03-26 77 /min [facility] of 07:00:00 [facility] Respiratory rate 2020-03-26 18 /min [facility] of 07:00:00 [facility] Oxygen saturation 2020-03-26 96 /min [facility] in Arterial blood 07:00:00 [facility] Body temperature 2020-03-26 37.67 [place] [facility] 03:07:00 [facility] Body height 2020-03-26 152.4 cm University of 03:07:00 [facility] Body weight 2020-03-26 77.111 kg University of 03:07:00 [facility] BMI 2020-03-26 33.20 kg/m2 University of 03:07:00 [facility] Systolic blood 2020-02-08 134 mm[Hg] [facility] of pressure 20:21:00 [facility] Diastolic blood 2020-02-08 94 mm[Hg] [facility] o f pressure 20:21:00 [facility] Heart rate 2020-02-08 76 /min [facility] of 20:: [facility] Body temperature 2020-02-08 36.11 [place] [facility] 20::00 [facility] Respiratory rate 2020-02-08 17 /min [facility] of 20::00 [facility] Oxygen saturation 2020-02-08 100 /min [facility] in Arterial blood 20:21:00 [facility] by Pulse oximetry [facility] Body weight 2020-02-03 80.468 kg University of 08:16:00 [facility] BMI 2020-02-03 34.65 kg/m2 University of 08:16:00 [facility] Systolic blood 2020-02-08 134 mm[Hg] [facility] of pressure 20:21:00 [facility] Diastolic blood 2020-02-08 94 mm[Hg] [facility] f pressure 20:: [facility] Heart rate 2020-02-08 76 /min [facility] of 20:: [facility] Body temperature 2020-02-08 36.11 [place] [facility] 20::00 [facility] Respiratory rate 2020-02-08 17 /min [facility] of :: [facility] Oxygen saturation 2020-02-08 100 /min [facility] in Arterial blood 20:21:00 [facility] by Pulse oximetry [facility] Body weight 2020-02-03 80.468 kg University of 08:16:00 [facility] BMI 2020-02-03 34.65 kg/m2 [facility] of 08:16:00 [facility] Systolic blood 2019-12-18 113 mm[Hg] [facility] pressure 23:30:00 [place] [facility] Diastolic blood 2019-12-18 76 mm[Hg] University o f pressure 23:30:00 [facility] Heart rate 2019-12-18 57 /min University of 23:30:00 [facility] Respiratory rate 2019-12-18 18 /min University of 23:30:00 [facility] Oxygen saturation 2019-12-18 99 /min University of in Arterial blood 23:30:00 [facility] brandy by Pulse oximetry Branch Body temperature 2019-12-18 36.67 Roro University of 20:24:00 [facility] Body height 2019-12-18 152.4 cm University of 20:24:00 [facility] Body weight 2019-12-18 77.111 kg University of 20:24:00 [facility] BMI 2019-12-18 33.20 kg/m2 University of 20:24:00 [facility] Systolic blood 2019-12-18 113 mm[Hg] University of pressure 23:30:00 [facility] Diastolic blood 2019-12-18 76 mm[Hg] University o f pressure 23:30:00 [facility] Heart rate 2019-12-18 57 /min University of 23:30:00 [facility] Respiratory rate 2019-12-18 18 /min University of 23:30:00 [facility] Oxygen saturation 2019-12-18 99 /min University of in Arterial blood 23:30:00 [facility] brandy by Pulse oximetry [place] Body temperature 2019-12-18 36.67 Roro University of 20:24:00 [facility] Body height 2019-12-18 152.4 cm University of 20:24: [facility] Body weight 2019-12-18 77.111 kg University of :: [facility] BMI 2019-12-18 33.20 kg/m2 University of 20:24:00 [facility] Systolic blood 2019-08-22 159 mm[Hg] University of pressure 04:28:00 [facility] Diastolic blood 2019-08-22 99 mm[Hg] University o f pressure 04:28:00 [facility] Heart rate 2019-08-22 66 /min University of 04:28:00 [facility] Respiratory rate 2019-08-22 18 /min University of 04:28:00 [facility] Oxygen saturation 2019-08-22 95 /min University of in Arterial blood 04:28:00 [facility] brandy by Pulse oximetry [place] Body temperature 2019-08-22 36.61 Roro University of 00:48:43 [facility] Body height 2019-08-22 152.4 cm University of 00:44:00 [facility] Body weight 2019-08-22 86.183 kg University of 00:44:00 [facility] BMI 2019-08-22 37.11 kg/m2 University of 00:44:00 [facility] Systolic blood 2019-08-22 159 mm[Hg] University of pressure 04:28:00 [facility] Diastolic blood 2019-08-22 99 mm[Hg] University o f pressure 04:28:00 [facility] Heart rate 2019-08-22 66 /min University of 04:28:00 [facility] Respiratory rate 2019-08-22 18 /min University of 04:28:00 [facility] Oxygen saturation 2019-08-22 95 /min University of in Arterial blood 04:28:00 [facility] Pulse oxim[facility] Body temperature 2019-08-22 36.61 Roro University of 00:48:43 [facility] Body height 2019-08-22 152.4 cm University of 00:44:00 [facility] Body weight 2019-08-22 86.183 kg University of 00:44:00 [facility] BMI 2019-08-22 37.11 kg/m2 University of 00:44:00 [facility] Heart rate 2019-06-26 93 /min University of 00:53:00 [facility] Oxygen saturation 2019-06-26 94 /min University of in Arterial blood 00:53:00 [facility] brandy by Pulse oximetry [facility] Systolic blood 2019-06-26 149 mm[Hg] University of pressure 00:45:00 [facility] Diastolic blood 2019-06-26 106 mm[Hg] University o f pressure 00:45:00 [facility] Respiratory rate 2019-06-26 16 /min University of 00:45:00 [facility] Body temperature 2019-06-25 37.17 Roro University of 20:48:00 [facility] Body height 2019-06-25 152.4 cm University of 20:48:00 [facility] Body weight 2019-06-25 88.451 kg University of 20:48:00 [facility] BMI 2019-06-25 38.08 kg/m2 University of 20:48:00 [facility] Heart rate 2019-06-26 93 /min University of 00:53:00 [facility] Oxygen saturation 2019-06-26 94 /min University of in Arterial blood 00:53:00 [facility] brandy by Pulse oximetry [facility] Systolic blood 2019-06-26 149 mm[Hg] University of pressure 00:45:00 [facility] Diastolic blood 2019-06-26 106 mm[Hg] University o f pressure 00:45:00 [facility] Respiratory rate 2019-06-26 16 /min University of 00:45:00 [facility] Body temperature 2019-06-25 37.17 Roro University of 20:48:00 [facility] Body height 2019-06-25 152.4 cm University of 20:48:00 [facility] Body weight 2019-06-25 88.451 kg University of 20:48:00 [facility] BMI 2019-06-25 38.08 kg/m2 University of 20:48:00 [facility] Systolic blood 2019-06-20 157 mm[Hg] University of pressure 00:30:00 [facility] Diastolic blood 2019-06-20 89 mm[Hg] University o f pressure 00:30:00 [facility] Heart rate 2019-06-20 70 /min University of 00:30:00 [facility] Oxygen saturation 2019-06-20 97 /min University of in Arterial blood 00:30:00 [facility] Pulse oximetry [facility] Respiratory rate 2019-06-20 14 /min University of 00:04:00 [facility] Body height 2019-06-19 152.4 cm University of 19:46:00 [facility] Body weight 2019-06-19 88.451 kg University of 19:46:00 [facility] BMI 2019-06-19 38.08 kg/m2 University of :46:00 [facility] Body temperature 2019-06-19 37.06 Roro University of 19:45:00 [facility] Systolic blood 2019-06-20 157 mm[Hg] University of pressure 00:30:00 [facility] Diastolic blood 2019-06-20 89 mm[Hg] University o f pressure 00:30:00 [facility] Heart rate 2019-06-20 70 /min University of 00:30:00 [facility] Oxygen saturation 2019-06-20 97 /min University of in Arterial blood 00:30:00 [facility] Pulse oximetry [facility] Respiratory rate 2019-06-20 14 /min University of 00:04:00 [facility] Body height 2019-06-19 152.4 cm University of 19:46:00 [facility] Body weight 2019-06-19 88.451 kg University of 19:46:00 [facility] BMI 2019-06-19 38.08 kg/m2 University of 19:46:00 [facility] Body temperature 2019-06-19 37.06 Roro University of 19:45:00 [facility] Systolic blood 2019-05-20 141 mm[Hg] University of pressure 02:59:00 [facility] Diastolic blood 2019-05-20 97 mm[Hg] University o f pressure 02:59:00 [facility] Heart rate 2019-05-20 86 /min University of 02:59:00 [facility] Respiratory rate 2019-05-20 16 /min University of 02:59:00 [facility] Oxygen saturation 2019-05-20 94 /min University of in Arterial blood 02:59:00 [facility] brandy by Pulse oximetry [facility] Body temperature 2019-05-20 36.61 Roro University of 00:45:32 [facility] Body weight 2019-05-20 81.647 kg University of 00:16:00 [facility] BMI 2019-05-20 35.15 kg/m2 University of 00:16:00 [facility] Systolic blood 2019-05-20 141 mm[Hg] University of pressure 02:59:00 [facility] Diastolic blood 2019-05-20 97 mm[Hg] University o f pressure 02:59:00 [facility] Heart rate 2019-05-20 86 /min University of 02:59:00 [facility] Respiratory rate 2019-05-20 16 /min University of 02:59:00 [facility] Oxygen saturation 2019-05-20 94 /min University of in Arterial blood 02:59:00 [facility] brandy by Pulse oximetry [facility] Body temperature 2019-05-20 36.61 Roro University of 00:45:32 [facility] Body weight 2019-05-20 81.647 kg University of 00:16:00 [facility] BMI 2019-05-20 35.15 kg/m2 University of 00:16:00 [facility] Systolic blood 2018-12-18 134 mm[Hg] University of pressure 13:38:00 [facility] Diastolic blood 2018-12-18 96 mm[Hg] University o f pressure 13:38:00 [facility] Heart rate 2018-12-18 75 /min University of 13:38:00 [facility] Respiratory rate 2018-12-18 18 /min University of 13:38:00 [facility] Body height 2018-12-18 152.4 cm University of 13:38:00 [facility] Body weight 2018-12-18 88.451 kg University of 13:38:00 [facility] BMI 2018-12-18 38.08 kg/m2 University of 13:38:00 [facility] Systolic blood 2018-12-08 159 mm[Hg] University of pressure 20:03:00 [facility] Diastolic blood 2018-12-08 111 mm[Hg] University o f pressure 20:03:00 [facility] Body height 2018-12-08 152.4 cm University of 20:03:00 [facility] Body weight 2018-12-08 88.451 kg University of 20:03:00 [facility] BMI 2018-12-08 38.08 kg/m2 University of 20:03:00 [facility] Systolic blood 2018-12-05 180 mm[Hg] University of pressure 13:04:00 [facility] Diastolic blood 2018-12-05 110 mm[Hg] University o f pressure 13:04:00 [facility] Heart rate 2018-12-05 74 /min University of 13:04:00 [facility] Respiratory rate 2018-12-05 18 /min University of 12:57:00 [facility] Body height 2018-12-05 152.4 cm University of 12:57:00 [facility] Body weight 2018-12-05 88.451 kg University of 12:57:00 [facility] BMI 2018-12-05 38.08 kg/m2 University of 12:57:00 [facility] Systolic blood 2018-12-01 139 mm[Hg] University of pressure 23:03:00 [facility] Diastolic blood 2018-12-01 72 mm[Hg] University o f pressure 23:03:00 [facility] Heart rate 2018-12-01 64 /min University of 23:03:00 [facility] Respiratory rate 2018-12-01 13 /min University of 22:02:00 [facility] Body temperature 2018-12-01 36.33 Roro University of 19:27:00 [facility] Body height 2018-12-01 152.4 cm University of 19:27:00 [facility] Body weight 2018-12-01 88.451 kg University of 19:27:00 [facility] BMI 2018-12-01 38.08 kg/m2 University of 19:27:00 [facility] Oxygen saturation 2018-12-01 88 /min [facility] in Arterial blood 19:27:00 [facility] Pulse oximetry Branch Systolic blood 2018-11-17 145 mm[Hg] reported to RN University of pressure 17:00:00 [facility] Diastolic blood 2018-11-17 80 mm[Hg] reported to RN University of pressure 17:00:00 [facility] Heart rate 2018-11-17 54 /min University of 17:00:00 [facility] Body temperature 2018-11-17 36.72 Roro [facility] 17:00:00 [facility] Respiratory rate 2018-11-17 16 /min [facility] 17:00:00 [facility] Oxygen saturation 2018-11-17 95 /min [facility] Arterial blood 17:00:00 [facility] by Pulse oximetry [place] Body height 2018-11-15 152.4 cm [facility] 22:07:00 [facility] Body weight 2018-11-15 88.587 kg [facility] 21:18:00 [facility] BMI 2018-11-15 38.14 kg/m2 [facility] 21:18:00 [facility] Procedures Procedure Date / Time Performing Source Performed Clinician CT ABDOMEN PELVIS W CONTRAST 2021-11-02 Mariana Ramirez Uni versity of 12:20:54 [facility] LIPASE 2021-11-02 Mariana Ramirez [place] of 10:40:00 [facility] COMP. METABOLIC PANEL (08870) 2021-11-02 Mariana Ramirez iversity of 10:40:00 [facility] CBC WITH DIFF 2021-11-02 Mariana Ramirez [place] of 10:40:00 [facility] PROTHROMBIN TIME / INR 2021-11-02 Mariana Ramirez Universit y of 10:40:00 [facility] ACTIVATED PARTIAL THRMPLAS KIMANI 2021-11-02 Mariana Ramirez U niversity of 10:40:00 [facility] CONSENT/REFUSAL FOR DIAGNOSIS AND 2021-11-02 Doctor Dung santiago, [facility] 09:27:03 [place] [facility] FL TIME OR (NON-REPORTABLE) 2021-09-[address] [facility] ersity of 14:39:00 [facility] FL TIME OR (NON-REPORTABLE) 2021-09-[address] [facility] ersity of 14:39:00 [facility] FOOT ARTHRODESIS 2021-09-29 Zulema Rodriguez [facility] 12:40:00 [facility] DAY SURGERY - ADC 2021-09-29 Doctor Padmasschad, [facility] 05:01:00 [place] [facility] ASSIGNMENT OF BENEFITS 2021-09-27 Doctor Iker, Univer sity of 15:03:24 [place] [facility] EXTERNAL PROVIDER RECORDS 2021-09-20 Doctor Padmasschad, Uni versity of 05:01:00 [place] [facility] EXTERNAL PROVIDER RECORDS 2021-09-20 Doctor Unassigned, Uni versity of 05:01:00 [place] [facility] EXTERNAL PROVIDER RECORDS 2021-09-19 Doctor Unassigned, Uni versity of 05:01:00 [place] [facility] EXTERNAL PROVIDER RECORDS 2021-09-19 Doctor Unassigned, Uni versity of 05:01:00 [place] [facility] MAGNESIUM 2021-09-08 [facility], [facility] of 09:16:00 [facility] COMP. METABOLIC PANEL ([id number]) 2021-09-08 [facility], [facility] iversity of 09:16:00 [facility] CBC WITH DIFF 2021-09-08 [facility], [facility] of 09:16:00 [facility] MAGNESIUM 2021-09-07 [facility], [facility] of 07:41:00 [facility] HEPATIC FUNCTION PANEL ([id number]) 2021-09-07 [facility], [facility] niversity of (ALB,T.PRO,BILI 07:41:00 [facility] T,BU/BC,ALT,AST,ALK PHOS) [place] BASIC METABOLIC PANEL (NA, K, CL, 2021-09-07 [facility] of CO2, GLUCOSE, BUN, CREATININE, CA) 07:41:00 [facility] CBC WITH DIFF 2021-09-07 [facility], [facility] of 07:41:00 [facility] MR ABDOMEN W WO CONTRAST MRCP 2021-09-06 [facility], [facility] iversity of 15:50:18 [facility] MAGNESIUM 2021-09-06 [facility], [facility] of 09:32:00 [facility] HEPATIC FUNCTION PANEL ([id number]) 2021-09-06 [facility] of (ALB,T.PRO,BILI 09:32:00 [facility] T,BU/BC,ALT,AST,ALK PHOS) Branch BASIC METABOLIC PANEL (NA, K, CL, 2021-09-06 JerryCaitlin hernandez [place] of CO2, GLUCOSE, BUN, CREATININE, CA) 09:32:00 [facility] MAGNESIUM 2021-09-05 [facility], [facility] of 08:23:00 [facility] HEPATIC FUNCTION PANEL ([id number]) 2021-09-05 Nguyễn, [facility] niversity of (ALB,T.PRO,BILI 08:23:00 [place] [facility] T,BU/BC,ALT,AST,ALK PHOS) [place] BASIC METABOLIC PANEL (NA, K, CL, 2021-09-05 [facility] of CO2, GLUCOSE, BUN, CREATININE, CA) 08:23:00 [facility] CBC WITH DIFF 2021-09-05 [facility] of 08:23:00 [facility] MAGNESIUM 2021-09-04 [facility], [facility] of 09:15:00 [facility] HEPATIC FUNCTION PANEL ([id number]) 2021-09-04 [facility], [facility] niversity of (ALB,T.PRO,BILI 09:15:00 [facility] T,BU/BC,ALT,AST,ALK PHOS) [place] BASIC METABOLIC PANEL (NA, K, CL, 2021-09-04 [facility] CO2, GLUCOSE, BUN, CREATININE, CA) 09:15:00 [facility] CBC WITH DIFF 2021-09-04 [facility] 09:15:00 [facility] MAGNESIUM 2021-09-03 [facility] 09:25:00 [facility] COMP. METABOLIC PANEL ([id number]) 2021-09-03 [facility] iversity of 09:25:00 [facility] CBC WITH DIFF 2021-09-03 [facility] 09:25:00 [facility] CMV BY PCR 2021-09-03 [facility] 03:30:00 [facility] HSV 1&2, VZV NAAT 2021-09-03 [facility] of 03:30:00 [facility] ACETAMINOPHEN 2021-09-02 [facility] 15:34:00 [facility] HEPATITIS B SURFACE ANTIBODY 2021-09-02 [facility], [facility] Uni versity of 15:34:00 [facility] HCV ANTIBODY 2021-09-02 [facility] 15:34:00 [facility] HBC ANTIBODY (IGM & IGG) 2021-09-02 [facility] ity of 15:34:00 [facility] CBC WITH DIFF 2021-09-02 [facility] 15:33:00 [facility] EBV QUANTITATIVE PCR 2021-09-02 [facility] 15:33:00 [facility] SMOOTH MUSCLE AB,IGG W/REFLEX 2021-09-02 [facility] iversity of 15:32:00 [facility] PHOSPHORUS 2021-09-02 [facility], [facility] of 15:32:00 [facility] MAGNESIUM 2021-09-02 Nguyễn, [facility] of 15:32:00 [facility] FERRITIN SERUM 2021-09-02 [facility], [facility] of 15:32:00 [facility] CERULOPLASMIN 2021-09-02 Nguyễn, [facility] of 15:32:00 [facility] ALPHA 1 ANTITRYPSIN 2021-09-02 [facility], [facility] o f 15:32:00 [facility] IMMUNOGLOBULIN G 2021-09-02 [facility], [facility] of 15:32:00 [facility] COMP. METABOLIC PANEL ([id number]) 2021-09-02 [facility] iversity of 15:32:00 [facility] ANTI-NUCLEAR ANTIBODY SCREEN 2021-09-02 [facility] versity of 15:32:00 [facility] HEPATITIS B SURFACE ANTIGEN 2021-09-02 [facility], [facility] ersity of 15:32:00 [facility] HAV ANTIBODY (IGG AND IGM) 2021-09-02 [facility] of 15:32:00 [facility] ANTI-NUCLEAR ANTIBODY TITER 2021-09-02 [facility] ersity of 15:32:00 [facility] ANTI-NUCLEAR ANTIBODY-PATHOLOGIST 2021-09-02 [facility] of INTERPRETATION 15:32:00 [facility] PROTHROMBIN TIME / INR 2021[facility]09[facility]02 [facility] 15:31[facility]00 [facility] HB ECG ROUTINE & RHYTHM STRIP 2021-09-02 Sheryl Crenshaw iversity of 13:42:19 [facility] US ABDOMEN LIMITED 2021-09-02 Sheryl Crenshaw [place] of 05:27:56 [facility] HB ECG ROUTINE & RHYTHM STRIP 2021-09-01 Jaki Polanco iversity of 18:43:41 [facility] XR CHEST 1 VW 2021-09-01 Jaki Polanco [place] of 18:38:41 [facility] LIPASE 2021-09-01 Jaki Polanco [place] of 18:37:00 [facility] MAGNESIUM 2021-09-01 Jaki Polanco [facility] 18:37:00 [facility] TROPONIN I 2021-09-01 CollinJaki [facility] of 18:37:00 [facility] COMP. METABOLIC PANEL ([id number]) 2021-09-01 Jaki Polanco Un iversity of 18:37:00 [facility] CBC WITH DIFF 2021-09-01 Collin, K Sydnie [place] of 18:37:00 [facility] URINALYSIS 2021-09-01 CollinJaki [facility] of 18:37:00 [facility] HOSPITAL ADMISSION 2021-09-01 Doctor Unasschad, [facility] 05:01:00 [place] [facility] CT ABDOMEN PELVIS W CONTRAST 2021-08-27 Maru Baez [facility] 17:00:42 [facility] URINALYSIS 2021-08-27 Maru Baez [facility] 16:26:00 [facility] LIPASE 2021-08-27 Maru Baez [facility] 15:59:00 [facility] TROPONIN I 2021-08-27 Maru Baez [facility] 15:59:00 [facility] COMP. METABOLIC PANEL ([id number]) 2021-08-27 Maru Baez [facility] 15:59:00 [facility] CBC WITH DIFF 2021-08-[address] [facility] 15:59:00 [facility] CONSENT/REFUSAL FOR DIAGNOSIS AND 2021-08-27 Doctor Dung santiago, [facility] 15:44:40 [place] [facility] POCT GLUCOSE (AUTOMATED) 2021-07-28 Liliya Hinojosa ity of 22:28:00 [facility] RENAL ARTERY DUPLEX - BY VASCULAR 2021-07-28 [employer] 20:54:00 Fatou [facility] POCT GLUCOSE (AUTOMATED) 2021-07-28 Liliya Hinojosa ity of 16:45:00 [facility] POCT GLUCOSE (AUTOMATED) 2021-07-28 Liliya Hinojosa ity of 12:52:00 [facility] LIPASE 2021-07-28 Liliya Hinojosa of 09:31:00 [facility] COMP. METABOLIC PANEL ([id number]) 2021-07-28 Liliya Hinojosa Un iversity of 09:31:00 [facility] CBC WITH DIFF 2021-07-28 Liliya Hinojosa University of 09:31:00 [facility] POCT GLUCOSE (AUTOMATED) 2021-07-28 Liliya Hinojosa Univers ity of 09:08:00 [facility] POCT GLUCOSE (AUTOMATED) 2021-07-28 Liliya Hinojosa Univers ity of 04:38:00 [facility] POCT GLUCOSE (AUTOMATED) 2021-07-28 Liliya Hinojosa Univers ity of 01:02:00 [facility] POCT GLUCOSE (AUTOMATED) 2021-07-27 Liliya Hinojosa Univers ity of 21:47:00 [facility] POCT GLUCOSE (AUTOMATED) 2021-07-27 Liliya Hinojosa Univers ity of 16:48:00 [facility] POCT GLUCOSE (AUTOMATED) 2021-07-27 Liliya Hinojosa Univers ity of 12:43:00 [facility] MAGNESIUM 2021-07-27 Gatito [facility] of 08:55:00 [facility] BASIC METABOLIC PANEL (NA, K, CL, 2021-07-27 [facility] of CO2, GLUCOSE, BUN, CREATININE, CA) 08:55:00 [facility] CBC WITH DIFF 2021-07-27 [facility] of 08:55:00 [facility] POCT GLUCOSE (AUTOMATED) 2021-07-27 Liliya Hinojosa Univers ity of 08:47:00 [facility] POCT GLUCOSE (AUTOMATED) 2021-07-27 Liliya Hinojosa Univers ity of 06:48:00 [facility] POCT GLUCOSE (AUTOMATED) 2021-07-27 Liliya Hinojosa Univers ity of 01:50:00 [facility] POCT GLUCOSE (AUTOMATED) 2021-07-26 Liliya Hinojosa Univers ity of 21:50:00 [facility] POCT GLUCOSE (AUTOMATED) 2021-07-26 Liliya Hinojosa Univers ity of 16:50:00 [facility] LIPASE 2021-07-26 [facility] of 09:59:00 [facility] MAGNESIUM 2021-07-26 [facility] of 09:59:00 [facility] BASIC METABOLIC PANEL (NA, K, CL, 2021-07-26 [employer] [place] of CO2, GLUCOSE, BUN, CREATININE, CA) 09:59:00 [facility] CBC WITH DIFF 2021-07-26 [employer] of 09:59:00 [facility] EKG-12 LEAD 2021-07-25 Liliya Hinojosa [place] of 23:35:46 [facility] POCT GLUCOSE (AUTOMATED) 2021-07-25 Liliya Hinojosa [facility] ity of 14:19:00 [facility] HEPATIC FUNCTION PANEL ([id number]) 2021-07-25 [employer] niversity of (ALB,T.PRO,BILI 12:28:00 [facility] Medical T,BU/BC,ALT,AST,ALK PHOS) [place] BASIC METABOLIC PANEL (NA, K, CL, 2021-07-25 [employer] [place] of CO2, GLUCOSE, BUN, CREATININE, CA) 12:28:00 [facility] CBC WITH DIFF 2021-07-25 [employer] of 10:59:00 [facility] MAGNESIUM 2021-07-24 Liliya Hinojosa [place] of 10:49:00 [facility] HEPATIC FUNCTION PANEL ([id number]) 2021-07-24 Liliya Hino[facility]osa niversity of (ALB,T.PRO,BILI 10:49:00 [facility] T,BU/BC,ALT,AST,ALK PHOS) [place] BASIC METABOLIC PANEL (NA, K, CL, 2021-07-24 Brigido Hinojosa [place] of CO2, GLUCOSE, BUN, CREATININE, CA) 10:49:00 [facility] CBC WITH DIFF 2021-07-24 Liliya Hinojosa [place] of 09:16:00 [facility] PHOSPHORUS 2021-07-24 Liliya Hinojosa [place] of 00:43:00 [facility] CT ABDOMEN PELVIS W CONTRAST 2021-07-23 Meka Hammonds Un iversity of 22:53:27 [facility] LIPASE 2021-07-23 Meka Hammonds [place] of 21:19:00 [facility] MAGNESIUM 2021-07-23 Meka Hammonds [place] of 21:19:00 [facility] TROPONIN I 2021-07-23 Meka aHmmonds [place] of 21:19:00 [facility] COMP. METABOLIC PANEL ([id number]) 2021-07-23 Meka Hammonds [facility] of 21:19:00 [facility] D-DIMER 2021-07-23 Meka Hammonds [facility] 21:19:00 [facility] CBC WITH DIFF 2021-07-23 Meka Hammonds [facility] 21:18:00 [facility] URINALYSIS 2021-07-23 Meka Hammonds [facility] 21:18:00 [facility] XR CHEST 1 VW 2021-07-23 Meka Hammonds [facility] 21:03:00 [facility] HB ECG ROUTINE & RHYTHM STRIP 2021-07-23 Meka Hammonds [facility] of 20:31:58 [facility] CONSENT/REFUSAL FOR DIAGNOSIS AND 2021-07-23 Doctor Dung santiago [facility] 20:20:48 [place] [facility] ESOPHAGOGASTRODUODENOSCOPY 2021-07-04 Gulshan Piper [facility] rsity of 17:04:00 [facility] EGD (ENDO) 2021-07-04 Jeannie Slade [facility] 16:11:40 [facility] EGD (ENDO) 2021-07-04 Jeannie Slade [place] of 16:11:40 [facility] DAY SURGERY - ADC 2021-07-04 Doctor Unasschad, University of 05:01:00 [place] [facility] EXTERNAL PROVIDER RECORDS 2021-06-23 Doctor Unassigned, Uni versity of 06:01:00 [place] [facility] EXTERNAL PROVIDER RECORDS 2021-06-23 Doctor Unassigned, Uni versity of 06:01:00 [place] [facility] CT ABDOMEN PELVIS W CONTRAST 2021-06-04 Mariana Ramirez Uni versity of 01:33:00 [facility] US GALL BLADDER 2021-06-03 Mariana Ramirez of 23:57:52 [facility] LIPASE 2021-06-03 Mariana Ramirez of 20:30:00 [facility] TROPONIN I 2021-06-03 Mariana Ramirez of 20:30:00 [facility] COMP. METABOLIC PANEL ([id number]) 2021-06-03 Mariana Ramirez Un iversity of 20:30:00 [facility] CBC WITH DIFF 2021-06-03 Mariana Ramirez of 20:30:00 [facility] PROTHROMBIN TIME / INR 2021-06-03 Mariana Ramirezit y of 20:30:00 [facility] ACTIVATED PARTIAL THRMPLAS KIMANI 2021-06-03 Mariana Ramirez U niversity of 20:30:00 [facility] N-TERMINAL PRO-BNP 2021-06-03 Mariana Ramirez of 20:30:00 [facility] COVID-19 (ID NOW RAPID TESTING) 2021-06-03 Mariana Ramirez of 20:30:00 [facility] LACTIC ACID WHOLE BLOOD 2021-06-03 Mariana Ramierzi ty of 20:26:00 [facility] XR CHEST 1 VW 2021-06-03 Mariana Ramirez [place] of 20:15:36 [facility] CONSENT/REFUSAL FOR DIAGNOSIS AND 2021-06-03 Doctor Dung santiago [facility] 19:39:18 [place] [facility] EKG-12 LEAD 2021-05-22 [facility] 06:47:[address] [facility] [address] CHEST PULMONARY ANGIOGRAM 2021-05-22 oCnsuelo Avendaño [facility] versity of 06:08:50 [facility] TROPONIN I 2021-05-22 [facility] of 05:41:00 [facility] COMP. METABOLIC PANEL ([id number]) 2021-05-22 Consuelo Avendaño iversity of 05:41:00 [facility] CBC WITH DIFF 2021-05-22 Jarocho [facility] of 05:41:00 [facility] N-TERMINAL PRO-BNP 2021-05-22 [facility] 05:41:00 [facility] NOTICE OF PRIVACY PRACTICES 2021-05-22 Doctor Unassigned, U niversity of 05:17:11 [place] [facility] CONSENT/REFUSAL FOR DIAGNOSIS AND 2021-05-22 [facility] 05:13:31 [place] [facility] POCT MOLECULAR FLU 2021-05-18 Manoj [facility] of 15:26:00 [facility] POCT MOLECULAR STREP 2021-05-18 Lincoln [facility] of 15:22:00 [facility] COVID-19 (ID NOW RAPID TESTING) 2021-04-15 [facility] 20:37:00 [facility] CT ABDOMEN PELVIS W CONTRAST 2021-04-15 Consuelo Avendaño Uni versity of 20:23:27 [facility] LIPASE 2021-04-15 Jarocho [facility] of 20:23:00 [facility] TROPONIN I 2021-04-15 Kaeutfalguni [facility] of 20:23:00 [facility] COMP. METABOLIC PANEL ([id number]) 2021-04-15 Conseulo Avendaño Un iversity of 20:23:00 [facility] CBC WITH DIFF 2021-04-15 Kaeutfalguni [facility] of 20:23:00 [facility] URINALYSIS 2021-04-15 Kaeutfalguni [facility] of 20:23:00 [facility] CONSENT/REFUSAL FOR DIAGNOSIS AND 2021-04-15 Doctor Dung santiago, [facility] 19:33:08 [place] [facility] CT ABDOMEN PELVIS W CONTRAST 2021-03-26 Consuelo Avendaño Uni versity of 02:08:33 [facility] LIPASE 2021-03-26 [facility] of 00:57:00 [facility] TROPONIN I 2021-03-26 Kaeutfalguni [facility] of 00:57:00 [facility] COMP. METABOLIC PANEL ([id number]) 2021-03-26 Consuelo Avendaño Un iversity of 00:57:00 [facility] CBC WITH DIFF 2021-03-26 Jarocho [facility] of 00:57:00 [facility] URINALYSIS 2021-03-26 Kaeutfalguni [facility] of 00:57:00 [facility] N-TERMINAL PRO-BNP 2021-03-26 Kaeutfalguni [facility] of 00:57:00 [facility] XR CHEST 1 VW 2021-03-26 Jarocho [facility] of 00:17:07 [facility] CONSENT/REFUSAL FOR DIAGNOSIS AND 2021-03-25 Doctor Dung santiago, [facility] 23:45:22 [place] [facility] SARS-COV-2 COVID-19 VACCINE 2021-03-25 Doctor Unassigned, U niversity of BOOSTER,0.25ML,IM (MODERNA) 17:05:[address] [place] [address] [facility] COMP. METABOLIC PANEL ([id number]) 2021-03-20 Meka Hammonds U niversity of 23:40:00 [facility] CT ABDOMEN PELVIS W CONTRAST 2021-03-20 Meka Hammonds Un iversity of 23:00:43 [facility] LIPASE 2021-03-20 Meka Hammonds [place] of 22:41:00 [facility] TROPONIN I 2021-03-20 Meka Hammonds [place] of 22:41:00 [facility] CBC WITH DIFF 2021-03-20 Meka aHmmonds [facility] 22:41:00 [facility] NOTICE OF PRIVACY PRACTICES 2021-03-20 Doctor Unassigned, U niversity of 21:43:47 [place] [facility] CONSENT/REFUSAL FOR DIAGNOSIS AND 2021-03-20 [facility] 21:43:12 [place] [facility] CT ABDOMEN PELVIS W CONTRAST 2021-02-12 Rosalinda Fisher U niversity of 22:22:23 [facility] LIPASE 2021-02-12 [facility] of 19:54:00 [facility] COMP. METABOLIC PANEL ([id number]) 2021-02-12 Natalia [facility] of 19:54:00 [facility] CBC WITH DIFF 2021-02-12 Natalia [facility] of 19:54:00 [facility] URINALYSIS 2021-02-12 [facility] of 19:54:00 [facility] CONSENT/REFUSAL FOR DIAGNOSIS AND 2021-02-12 [facility] 19:03:31 [place] [facility] COMP. METABOLIC PANEL ([id number]) 2021-01-18 Maru Baez [place] of 04:11:[address] [facility] CT ABDOMEN PELVIS W CONTRAST 2021-01-18 Maru Baez [place] of 03:35:25 [facility] LIPASE 2021-01-18 Maru Baez [place] of 02:54:00 [facility] CBC WITH DIFF 2021-01-18 Maru Baez [facility] 02:54:00 [facility] URINALYSIS 2021-01-18 Maru Baez [facility] 02:54:00 [facility] CONSENT/REFUSAL FOR DIAGNOSIS AND 2021-01-18 [facility] 02:23:56 [place] [facility] XR CHEST 2 VW 2021-01-07 Consuelo Avendaño [facility] 16:49:00 [facility] COVID-19 (ID NOW RAPID TESTING) 2020-12-30 Maru Baez [facility] 22:02:[address] [facility] [address] ABDOMEN PELVIS W CONTRAST 2020-12-30 Maru Baez [facility] 18:49:58 [facility] LIPASE 2020-12-30 Maru Baez [facility] 18:29:00 [facility] HEPATIC FUNCTION PANEL ([id number]) 2020-12-30 Maru Baez [facility] (ALB,T.PRO,BILI 18:29:00 [facility],BU/BC,ALT,AST,ALK PHOS) [place] BASIC METABOLIC PANEL (NA, K, CL, 2020-12-30 Jerilyn Baez ra [facility] CO2, GLUCOSE, BUN, CREATININE, CA) 18:29:00 [facility] CBC WITH DIFF 2020-12-30 Maru Baez [facility] 18:29:00 [facility] URINALYSIS 2020-12-30 Maru Baez [facility] 18:29:00 [facility] CONSENT/REFUSAL FOR DIAGNOSIS AND 2020-12-30 [facility] 18:01:18 [place] [facility] US PELVIS COMPLETE WITH 2020-12-23 Vira Washburni ty of TRANSVAGINAL 21:36:03 [facility] US GALL BLADDER 2020-12-05 Alirio Poole [facility] 22:39:34 F [facility] LACTIC ACID WHOLE BLOOD 2020-12-05 Alirio Poole [facility] sity of 22:16:00 F [facility] CT ABDOMEN PELVIS W CONTRAST 2020-12-05 Alirio Poole U niversity of 21:23:47 F [facility] ASSIGNMENT OF BENEFITS 2020-12-05 Doctor Unassigned, Univ sity of 20:53:22 [place] [facility] LIPASE 2020-12-05 Maru Baez [facility] 20:12:00 [facility] COMP. METABOLIC PANEL ([id number]) 2020-12-05 Maru Beaz [facility] 20:12:00 [facility] CBC WITH DIFF 2020-12-05 Maru Baez [facility] 20:12:00 [facility] URINALYSIS 2020-12-05 Maru Baez [facility] 20:12:00 [facility] CONSENT/REFUSAL FOR DIAGNOSIS AND 2020-12-05 Doctor Dung santiago, [facility] 18:56:42 [place] [facility] MAGNESIUM 2020-10-12 [facility], [facility] 08:21:00 [facility] HEPATIC FUNCTION PANEL ([id number]) 2020-10-12 [facility], niversity of (ALB,T.PRO,BILI 08:21:00 [facility],BU/BC,ALT,AST,ALK PHOS) [place] LIPID PANEL ([id number])(TOTAL 2020-10-12 Hernan [facility] ale of CHOLESTEROL, TRIGLYCERIDES, HDL) 08:21:00 [facility] CBC WITH DIFF 2020-10-12 [facility] 08:21:00 [facility] PROTHROMBIN TIME / INR 2020-10-12 [facility], Universit y of 08:21:00 [facility] ACTIVATED PARTIAL THRMPLAS KIMANI 2020-10-12 [facility], U niversity of 08:21:00 [facility] HEPATIC FUNCTION PANEL ([id number]) 2020-10-12 [facility], niversity of (ALB,T.PRO,BILI 03:31:00 [facility] T,BU/BC,ALT,AST,ALK PHOS) [place] BASIC METABOLIC PANEL (NA, K, CL, 2020-10-12 [facility] CO2, GLUCOSE, BUN, CREATININE, CA) 03:31:00 [facility] COVID-19 (ID NOW RAPID TESTING) 2020-10-11 Mariana Ramirez [place] of 16:15:00 [facility] US GALL BLADDER 2020-10-11 Mariana Ramirez [place] of 15:26:59 [facility] HB ECG ROUTINE & RHYTHM STRIP 2020-10-11 Mariana Ramirez Un iversity of 13:53:00 [facility] LIPASE 2020-10-11 Mariana Ramirez [place] of 13:49:00 [facility] TROPONIN I 2020-10-11 [facility] of 13:49:00 [facility] HEPATIC FUNCTION PANEL ([id number]) 2020-10-11 Mariana Ramirez niversity of (ALB,T.PRO,BILI 13:49:00 [facility],BU/BC,ALT,AST,ALK PHOS) [place] BASIC METABOLIC PANEL (NA, K, CL, 2020-10-11 Florina Ramirez [place] [id number], GLUCOSE, BUN, CREATININE, CA) 13:49:00 [facility] CBC WITH DIFF 2020-10-11 Mariana Ramirez [place] of 13:49:00 [facility] URINALYSIS 2020-10-11 James Mariana [facility] 13:49:00 [facility] CONSENT/REFUSAL FOR DIAGNOSIS AND 2020-10-11 Doctor Dung santiago [facility] 13:29:15 [place] [facility] COVID-19 (ID NOW RAPID TESTING) 2020-10-04 Maisha Reyes [facility] 23:19:00 [facility] URINALYSIS 2020-10-04 Maisha Reyes [facility] 23:18:00 [facility] LIPASE 2020-10-04 Maisha Reyes [facility] 23:17:00 [facility] COMP. METABOLIC PANEL ([id number]) 2020-10-04 Maisha Reyes iversity of 23:17:00 [facility] CBC WITH DIFF 2020-10-04 Maisha Reyes [facility] 23:17:00 [facility] CONSENT/REFUSAL FOR DIAGNOSIS AND 2020-08-05 [facility] 13:05:44 [place] [facility] FL TIME OR (NON-REPORTABLE) 2020-07-18 Moise Gamez U niversity of 12:50:00 [facility] FL TIME OR (NON-REPORTABLE) 2020-07-18 Moise Gamez U niversity of 12:50:00 [facility] BLOCK EPIDURAL 2020-07-18 Moise Gamez University of 12:25:00 [facility] POCT GLUCOSE (AUTOMATED) 2020-07-18 Moise Gamez Univ ersity of 12:01:00 [facility] POCT GLUCOSE (AUTOMATED) 2020-07-[address] [facility] ersity of 12:01:[address] [facility] 2020-07-18 Doctor Iker, [facility] 05:01:00 [place] [facility] CT ABDOMEN PELVIS W CONTRAST 2020-07-08 Jaki Polanco Uni versity of 00:59:19 [facility] LIPASE 2020-07-08 Jaki Polanco [facility] 00:23:00 [facility] MAGNESIUM 2020-07-08 Jaki Polanco Sydnie [facility] 00:23:00 [facility] TROPONIN I 2020-07-08 CollinJaki Sydnie [facility] 00:23:00 [facility] COMP. METABOLIC PANEL ([id number]) 2020-07-08 Jaki Polanco iversity of 00:23:00 [facility] CBC WITH DIFF 2020-07-08 Jaki Polanco [facility] 00:23:00 [facility] URINALYSIS 2020-07-08 Jaki Polanco Sydnie [facility] 00:23:00 [facility] COVID-19 (ID NOW RAPID TESTING) 2020-07-08 CollinJaki Sydnie [facility] 00:23:00 [facility] XR CHEST 1 VW 2020-07-08 CollinJaki Sydnie [facility] 00:01:58 [facility] CONSENT/REFUSAL FOR DIAGNOSIS AND 2020-07-07 Doctor Dung santiago, [facility] 23:40:12 [place] [facility] FL TIME OR (NON-REPORTABLE) 2020-07-04 Moise Gamez U niversity of 13:10:[address] [facility] 2020-07-04 Doctor Iker, [facility] 05:01:00 [place] [facility] ASSIGNMENT OF BENEFITS 2020-07-01 Doctor Iker, [facility] sity of 14:01:02 [place] [facility] FL TIME OR (NON-REPORTABLE) 2020-06-20 Moise Gamez niversity of 14:12:[address] [facility] 2020-06-20 Doctor Iker, [facility] 06:01:00 [place] [facility] ASSIGNMENT OF BENEFITS 2020-06-17 Doctor Unassigned, Univer sity of 21:21:05 [place] [facility] CONSENT/REFUSAL FOR DIAGNOSIS AND 2020-06-15 Doctor Dung santiago [facility] 20:59:25 [place] [facility] CONSENT/REFUSAL FOR DIAGNOSIS AND 2020-06-15 Doctor Dung santiago [facility] 20:59:25 [place] [facility] ASSIGNMENT OF BENEFITS 2020-06-15 Doctor Unassigned, Univer sity of 20:59:08 [place] [facility] ASSIGNMENT OF BENEFITS 2020-06-15 Doctor Unassigned, Univer sity of 20:59:08 [place] [facility] CONSENT/REFUSAL FOR DIAGNOSIS AND 2020-06-15 Doctor Dung santiago [facility] 20:58:52 [place] [facility] CONSENT/REFUSAL FOR DIAGNOSIS AND 2020-06-15 Doctor Dung santiago [facility] 20:58:52 [place] [facility] ASSIGNMENT OF BENEFITS 2020-06-15 Doctor Unassigned, Univer sity of 20:58:37 [place] [facility] ASSIGNMENT OF BENEFITS 2020-06-15 Doctor Padmasschad, Univer sity of 20:58:37 [place] [facility] NOTICE OF PRIVACY PRACTICES 2020-06-15 Doctor Unassigned, U niversity of 20:58:21 [place] [facility] NOTICE OF PRIVACY PRACTICES 2020-06-15 Doctor Unassigned, U niversity of 20:58:21 [place] [facility] CONSENT/REFUSAL FOR DIAGNOSIS AND 2020-06-15 Doctor Dung santiago [facility] 20:58:08 [place] [facility] CONSENT/REFUSAL FOR DIAGNOSIS AND 2020-06-15 Doctor Dung santiago [facility] 20:58:08 [place] [facility] ASSIGNMENT OF BENEFITS 2020-06-15 Doctor Unassigned, Univer sity of 20:57:50 [place] [facility] ASSIGNMENT OF BENEFITS 2020-06-15 Doctor Unassigned, Univer sity of 20:57:50 [place] [facility] DSU PRE-OP 2020-06-15 Doctor Dong, [facility] 06:01:00 [place] [facility] DSU PRE-OP 2020-06-15 Doctor Dong [facility] 06:01:00 [place] [facility] HEPATIC FUNCTION PANEL ([id number]) 2020-05-06 [facility] of (ALB,T.PRO,BILI 22:56:00 [facility],BU/BC,ALT,AST,ALK PHOS) [place] BASIC METABOLIC PANEL (NA, K, CL, 2020-05-06 [facility] CO2, GLUCOSE, BUN, CREATININE, CA) 22:56:00 [facility] XR CHEST 1 VW 2020-05-06 [facility] 21:44:02 [facility] LIPASE 2020-05-06 [facility] 21:40:00 [facility] TROPONIN I 2020-05-06 [facility] 21:40:00 [facility] CBC WITH DIFF 2020-05-06 [facility] 21:40:00 [facility] URINALYSIS 2020-05-06 [facility] 21:32:00 [facility] COVID-19 (ID NOW RAPID TESTING) 2020-05-06 [facility] 21:32:00 [facility] NOTICE OF PRIVACY PRACTICES 2020-05-06 Doctor Unassigned, U niversity of 21:14:50 [place] [facility] CONSENT/REFUSAL FOR DIAGNOSIS AND 2020-05-06 Doctor Dung santiago, [facility] 21:14:25 [place] [facility] CT ABDOMEN PELVIS W CONTRAST 2020-03-26 Erasmo Grayson Un iversity of 06:12:05 [facility] URINALYSIS 2020-03-26 Erasmo Grayson [place] of 05:02:00 [facility] LIPASE 2020-03-26 Erasmo Grayson [facility] of 03:38:00 [facility] COMP. METABOLIC PANEL ([id number]) 2020-03-26 Erasmo Grayson U niversity of 03:38:00 [facility] CBC WITH DIFF 2020-03-26 Erasmo Grayson [place] of 03:38:00 [facility] COVID-19 (ID NOW RAPID TESTING) 2020-03-26 Erasmo Grayson [place] of 03:38:00 [facility] CONSENT/REFUSAL FOR DIAGNOSIS AND 2020-03-26 Doctor Dung santiago, [facility] 02:58:31 [place] [facility] REFERRAL- REQUEST/RESPONSE 2020-03-18 Doctor Unassigned, Un iversity of 06:01:00 [place] [facility] MR BRAIN WO CONTRAST 2020-02-08 Monet Dominguez [facility] y of 13:47:00 Ali [facility] BASIC METABOLIC PANEL (NA, K, CL, 2020-02-07 [facility], [facility] of CO2, GLUCOSE, BUN, CREATININE, CA) 08:51:00 [facility] CBC WITH DIFF 2020-02-07 [facility] [employer] of 08:51:00 [facility] COMP. METABOLIC PANEL ([id number]) 2020-02-05 Alex Mcknight Un iversity of 09:37:00 [facility] CBC WITH DIFF 2020-02-05 Alex Mcknight [place] of 09:37:00 [facility] MR CERVICAL SPINE WO CONTRAST 2020-02-05 Get Aguillon Un iversity of 00:24:54 [facility] MAGNESIUM 2020-02-04 Alex Mcknight [place] of 10:01:00 [facility] COMP. METABOLIC PANEL ([id number]) 2020-02-04 Alex Mcknight Un iversity of 10:01:00 [facility] CBC WITH DIFF 2020-02-04 Get Aguillon [facility] of 10:01:00 [facility] N-TERMINAL PRO-BNP 2020-02-04 Alex Mcknight [place] of 10:01:00 [facility] BLOOD CULTURE SCREEN 2020-02-03 Alex Mcknight of 22:19:00 [facility] RENAL ARTERY DUPLEX BY VASCULAR 2020-02-03 Alex Mcknight of LAB 17:42:39 [facility] AMMONIA, PLASMA 2020-02-03 Alex Mcknight [place] of 17:06:00 [facility] SMOOTH MUSCLE AB,IGG W/REFLEX 2020-02-03 Charafeddine, Un iversity of 16:43:00 Nizar C [facility] OCCULT (GUAIAC) BLOOD 2020-02-03 Alex Mcknight [place] of 16:42:00 [facility] PHOSPHORUS 2020-02-03 Alex Mcknight [place] of 08:45:00 [facility] CREATINE KINASE 2020-02-03 Juan Luis [facility] of 08:45:00 [facility] URIC ACID 2020-02-03 Juan Luis, [facility] of 08:45:00 [facility] MAGNESIUM 2020-02-03 Juan Lusi, [facility] of 08:45:00 [facility] COMP. METABOLIC PANEL ([id number]) 2020-02-03 Alex Mcknight iversity of 08:45:00 [facility] CBC WITH DIFF 2020-02-03 Juan Luis, [facility] of 08:45:00 [facility] N-TERMINAL PRO-BNP 2020-02-03 Juan Luis, [facility] of 08:45:00 [facility] BLOOD CULTURE SCREEN 2020-02-02 Juan Luis, [facility] of 20:19:00 [facility] BLOOD CULTURE SCREEN 2020-02-02 Juan Luis, [facility] of 19:58:00 [facility] CERULOPLASMIN 2020-02-02 Ross [place] of 19:58:00 Nibehzad [facility] VALPROIC ACID, FREE 2020-02-02 Juan Luis [facility] o f 19:58:00 [facility] PROTHROMBIN TIME / INR 2020-02-02 [facility] of 19:58:00 [facility] ANTI-NUCLEAR ANTIBODY SCREEN 2020-02-02 Ross, [facility] versity of 19:58:00 Kenroy Rosales [facility] HEPATITIS B SURFACE ANTIBODY 2020-02-02 Juan Luis [facility] Uni versity of 19:58:00 [facility] HEPATITIS B SURFACE ANTIGEN 2020-02-02 Juan Luis [facility] ersity of 19:58:00 [facility] HCV ANTIBODY 2020-02-02 Juan Luis [facility] of 19:58:00 [facility] HAV ANTIBODY (IGG AND IGM) 2020-02-02 [facility] 19:58:00 [facility] PROCALCITONIN 2020-02-02 Juan Luis [facility] of 19:58:00 [facility] BLOOD CULTURE WORKUP 2020-02-02 Juan Luis [facility] of 19:58:00 [facility] CREATINE KINASE 2020-02-02 Juan Luis [facility] of 11:31:00 [facility] LIPASE 2020-02-02 [facility] of 11:31:00 [facility] COMP. METABOLIC PANEL ([id number]) 2020-02-02 [facility] iversity of 11:31:00 [facility] LIPID PANEL ([id number])(TOTAL 2020-02-02 Alex Mcknight [facility] sity of CHOLESTEROL, TRIGLYCERIDES, HDL) 11:31:00 [facility] 2020-02-02 [facility] of 11:31:00 [facility] POCT GLUCOSE (AUTOMATED) 2020-02-02 Liliya Hinojosa [facility] ity of 11:24:00 [facility] LIPASE 2020-02-02 [facility] of 08:21:00 [facility] COMP. METABOLIC PANEL ([id number]) 2020-02-02 [facility] iversity of 08:21:00 [facility] 2020-02-02 Micaela [facility] of 08:21:00 [facility] CBC WITH DIFF 2020-02-02 Micaela [facility] of 08:21:00 [facility] GLYCOSYLATED HEMOGLOBIN (A1C) 2020-02-02 Alex Mcknight iversity of 08:21:00 [facility] ACUTE CARE VENOUS BLOOD GAS 2020-02-[address] [facility] ersity of 19:23:00 [facility] US ABDOMEN COMPLETE 2020-02-01 [facility] o f 16:39:39 [facility] POCT GLUCOSE (AUTOMATED) 2020-02-01 Liliya Hinojosa [facility] ity of 12:46:00 [facility] LIPASE 2020-02-01 [facility] of 10:09:00 [facility] COMP. METABOLIC PANEL ([id number]) 2020-02-01 [facility] iversity of 10:09:00 [facility] LITHIUM 2020-02-01 [facility] of 10:09:00 [facility] CBC WITH DIFF 2020-02-01 Liliya Hinojosa [place] of 10:09:00 [facility] OSMOLALITY SERUM 2020-02-01 Liliya Hinojosa [place] of 00:10:00 [facility] VITAMIN B12, LEVEL 2020-02-01 Micaela [facility] of 00:10:00 [facility] FOLATE 2020-02-01 [facility] of 00:10:00 [facility] ABG+COOX+NA+K+GLU+CA2+ 2020-01-31 Kirstin Ron [facility] ty of 20:39:00 [facility] BLOOD CULTURE SCREEN 2020-01-31 [facility] of 18:21:00 [facility] IRON PANEL 2020-01-31 [facility] of 18:21:00 [facility] SALICYLATE 2020-01-31 [facility] of 18:21:00 [facility] LITHIUM 2020-01-31 [facility] of 18:21:00 [facility] VALPROIC ACID, TOTAL 2020-01-31 [facility] of 18:21:00 [facility] BLOOD CULTURE WORKUP 2020-01-31 [facility]af [facility] of 18:21:00 [facility] ADC OR PERICO ONLY - RPR 2020-01-31 [facility] sity of 18:21:00 [facility] GRAM POSITIVE BLOOD PATHOGENS DNA 2020-01-31 Asaf May [facility] of PROBE-AEROBIC 18:21:00 [facility] XR ABDOMEN 1 VW 2020-01-31 [facility] of 17:09:26 [facility] XR CHEST 1 VW 2020-01-31 Ron, [facility] of 17:09:[address] [facility] [address] HEAD WO CONTRAST 2020-01-31 [facility] of 16:58:10 [facility] URINALYSIS 2020-01-31 [facility] of 16:13:00 [facility] URINE CULTURE 2020-01-31 [facility]af [facility] of 16:13:00 [facility] ADC / LCC - DRUG SCREEN TRIAGE 2020-01-31 Asaf [facility] of 16:13:00 [facility] COVID-19 (ID NOW RAPID TESTING) 2020-01-31 Asaf Kirstin [place] of 16:00:00 [facility] LAB ONLY COVID INTERPRETATION 2020-01-31 Kirstin Ron U niversity of 16:00:00 [facility] BLOOD CULTURE SCREEN 2020-01-31 [facility]af [facility] of 15:58:00 [facility] CREATINE KINASE 2020-01-31 [facility] of 15:58:00 [facility] LIPASE 2020-01-31 [facility] of 15:58:00 [facility] FERRITIN SERUM 2020-01-31 [facility] of 15:58:00 [facility] AMMONIA, PLASMA 2020-01-31 [facility] of 15:58:00 [facility] TROPONIN I 2020-01-31 [facility] of 15:58:00 [facility] THYROID STIMULATING HORMONE 2020-01-[address] [facility] ersity of 15:58:00 [facility] HEPATIC FUNCTION PANEL ([id number]) 2020-01-31 [facility] of (ALB,T.PRO,BILI 15:58:00 [facility],BU/BC,ALT,AST,ALK PHOS) Branch BASIC METABOLIC PANEL (NA, K, CL, 2020-01-31 [facility] of CO2, GLUCOSE, BUN, CREATININE, CA) 15:58:00 [facility] ETHANOL 2020-01-31 [facility] of 15:58:00 [facility] DIFF CONSULT INTERPRETATION 2020-01-[address] [facility] ersity of 15:58:00 [facility] CBC WITH DIFF 2020-01-31 [facility] of 15:58:00 [facility] RETICULOCYTES AUTOMATED 2020-01-31 [facility] ty of 15:58:00 [facility] N-TERMINAL PRO-BNP 2020-01-31 [facility] o f 15:58:00 [facility] LACTIC ACID WHOLE BLOOD 2020-01-31 [facility] ity of 15:57:00 [facility] EKG-12 LEAD 2020-01-31 [facility] of 15:48:34 [facility] EKG-12 LEAD 2020-01-[address] [place] [id number] of 15:40:40 [facility] NOTICE OF PRIVACY PRACTICES 2020-01-31 Doctor Unassigned, U niversity of 15:38:09 [place] [facility] CONSENT/REFUSAL FOR DIAGNOSIS AND 2020-01-31 Doctor Unasspramod santiago, [facility] 15:37:54 [place] [facility] EXTERNAL PROVIDER RECORDS 2020-01-31 Doctor Unassigned, Uni versity of 05:01:00 [place] [facility] EMERGENCY DEPARTMENT DOCUMENTS 2020-01-31 Doctor Unasschad , [place] of 05:01:00 [place] [facility] HOSPITAL ADM - MISC 2020-01-31 Doctor Unassigned, Universit y of 05:01:00 [place] [facility] ADMISSION 2020-01-31 Doctor Unassigned, University of 05:01:00 [place] [facility] CT ABDOMEN PELVIS W CONTRAST 2019-12-18 [facility] Un iversity of 22:11:19 [facility] URINALYSIS 2019-12-18 [facility] ([place], [place]) [facility] 21:07:00 [facility] LIPASE 2019-12-18 [facility] 20:39:00 [facility] TROPONIN I 2019-12-18 [facility] 20:39:00 [facility] HEPATIC FUNCTION PANEL (22028) 2019-12-18 [facility] (ALB,T.PRO,BILI 20:39:00 [facility],BU/BC,ALT,AST,ALK PHOS) Branch BASIC METABOLIC PANEL (NA, K, CL, 2019-12-18 [facility], [place]) [facility] CO2, GLUCOSE, BUN, CREATININE, CA) 20:39:00 [facility] CBC WITH DIFF 2019-12-18 Nasra [facility] 20:39:00 [facility] CONSENT/REFUSAL FOR DIAGNOSIS AND 2019-12-18 Doctor Dung santiago, [place] of [facility] 20:15:38 [place] [facility] XR CHEST 1 VW COVID 2019-08-22 Erasmo Grayson [place] of 01:15:45 [facility] LIPASE 2019-08-22 Erasmo Grayson [facility] 01:00:00 [facility] TROPONIN I 2019-08-22 Erasmo Grayson [place] of 01:00:00 [facility] COMP. METABOLIC PANEL ([id number]) 2019-08-22 Erasmo Grayson U niversity of 01:00:00 [facility] CBC WITH DIFFERENTIAL 2019-08-22 Erasmo Grayson Universit y of 01:00:00 [facility] PROTHROMBIN TIME / INR 2019-08-22 [facility] ty of 01:00:00 [facility] ACTIVATED PARTIAL THRMPLAS KIMANI 2019-08-22 [facility] of 01:00:00 [facility] URINALYSIS 2019-08-22 [facility] of 01:00:00 [facility] CORONAVIRUS COVID-19 TESTING 2019-08-22 [facility] Un iversity of 01:00:00 [facility] EKG-12 LEAD 2019-08-22 [facility] of 00:52:01 [facility] CONSENT/REFUSAL FOR DIAGNOSIS AND 2019-08-22 Doctor Dung santiago, [facility] 00:30:30 [place] [facility] LIPASE 2019-06-25 [facility] of 22:49:00 [facility] TROPONIN I 2019-06-25 [facility] of 22:49:00 [facility] HEPATIC FUNCTION PANEL (65905) 2019-06-25 [facility] of (ALB,T.PRO,BILI 22:49:00 [facility],BU/BC,ALT,AST,ALK PHOS) [place] BASIC METABOLIC PANEL (NA, K, CL, 2019-06-25 [facility] of CO2, GLUCOSE, BUN, CREATININE, CA) 22:49:00 [facility] CBC WITH DIFFERENTIAL 2019-06-25 [facility] y of 22:49:00 [facility] EKG-12 LEAD 2019-06-25 [facility] of 22:33:31 [facility] URINALYSIS 2019-06-25 [facility] of 22:13:00 [facility] LIPASE 2019-06-19 [facility] of 20:30:00 [facility] TEST, SERUM 2019-06-19 [facility] ty of 20:30:00 [facility] HEPATIC FUNCTION PANEL (42869) 2019-06-19 [facility] of (ALB,T.PRO,BILI 20:30:00 [facility] T,BU/BC,ALT,AST,ALK PHOS) [place] BASIC METABOLIC PANEL (NA, K, CL, 2019-06-19 [facility] of CO2, GLUCOSE, BUN, CREATININE, CA) 20:30:00 [facility] CBC WITH DIFFERENTIAL 2019-06-19 [facility] ty of 20:30:00 [facility] URINALYSIS 2019-06-19 [facility] of 20:30:00 [facility] CONSENT/REFUSAL FOR DIAGNOSIS AND 2019-06-19 [facility] 19:35:06 [place] [facility] CT ABDOMEN PELVIS W CONTRAST 2019-05-20 Gary Skaggs [facility] versity of 02:03:54 [facility] LIPASE 2019-05-20 [facility] of 01:07:00 [facility] COMP. METABOLIC PANEL (25899) 2019-05-20 [facility] iversity of 01:07:00 [facility] CBC WITH DIFFERENTIAL 2019-05-20 [facility] of 01:07:00 [facility] URINALYSIS 2019-05-20 [facility] of 01:07:00 [facility] NOTICE OF PRIVACY PRACTICES 2019-05-20 Doctor Unassigned, U niversity of 00:08:29 [place] [facility] CONSENT/REFUSAL FOR DIAGNOSIS AND 2019-05-20 [facility] 00:08:14 [place] [facility] CT ANKLE RIGHT WO CONTRAST 2018-12-05 Ector Frank [facility] rsity of 16:22:01 [facility] XR FOOT 3+ VW RIGHT 2018-12-01 Jaki Polanco [facility] o f 19:59:31 [facility] XR TIBIA FIBULA 2 VW RIGHT 2018-12-01 Jaki Polanco [facility] rsity of 19:59:07 [facility] BASIC METABOLIC PANEL (NA, K, CL, 2018-11-16 [facility] of CO2, GLUCOSE, BUN, CREATININE, CA) 09:31:00 [facility] CBC WITH DIFFERENTIAL 2018-11-16 [facility] of 09:31:00 [facility] ABORH CONFIRMATION 2018-11-16 [facility] of 00:34:00 [facility] URINE CULTURE 2018-11-16 [facility] of 00:00:00 [facility] URINALYSIS 2018-11-15 [facility] of 23:58:00 [facility] TYPE AND SCREEN 2018-11-15 [facility] of 23:00:00 [facility] TROPONIN I 2018-11-15 [facility] of 21:08:00 [facility] LIPID PANEL ([id number])(TOTAL 2018-11-15 [facility] CHOLESTEROL, TRIGLYCERIDES, HDL) 21:08:[address] [facility] [address] ABDOMEN PELVIS W CONTRAST 2018-11-15 Mariana Ramirez versity of 16:32:45 [facility] HELICOBACTER PYLORI AB, IGG 2018-11-15 [facility] ersity of 15:51:00 [facility] HEPATITIS B SURFACE ANTIBODY 2018-11-15 Mariana Ramirez versity of 15:51:00 [facility] HCV ANTIBODY 2018-11-15 Mariana Ramirez of 15:51:00 [facility] HEPATITIS A VIRUS ANTIBODY IGM 2018-11-15 Mariana Ramirez niversity of 15:51:00 [facility] HEPATITIS B CORE ANTIBODY IGM 2018-11-15 Mariana Ramirez iversity of 15:51:00 [facility] ACETAMINOPHEN 2018-11-15 Mariana Ramirez of 15:50:00 [facility] XR CHEST 1 VW 2018-11-15 Mariana Ramirez of 15:08:18 [facility] LIPASE 2018-11-15 Mariana Ramirez of 14:40:00 [facility] TROPONIN I 2018-11-15 Mariana Ramirez of 14:40:00 [facility] HEPATIC FUNCTION PANEL (32379) 2018-11-15 Mariana Ramirez niversity of (ALB,T.PRO,BILI 14:40:00 [facility] T,BU/BC,ALT,AST,ALK PHOS) [place] BASIC METABOLIC PANEL (NA, K, CL, 2018-11-15 Florina Ramirez [place] of CO2, GLUCOSE, BUN, CREATININE, CA) 14:40:00 [facility] CBC WITH DIFFERENTIAL 2018-11-15 Mariana Ramirez of 14:40:00 [facility] GLYCOSYLATED HEMOGLOBIN (A1C) 2018-11-15 [facility] iversity of 14:40:00 [facility] PROTHROMBIN TIME / INR 2018-11-15 Mariana Ramirezit y of 14:40:00 [facility] ACTIVATED PARTIAL THRMPLAS KIMANI 2018-11-15 Mariana Ramirez U niversity of 14:40:00 [facility] N-TERMINAL PRO-BNP 2018-11-15 Mariana Ramirez [place] of 14:40:00 [facility] EKG-12 LEAD 2018-11-15 Mariana Ramirez [place] of 14:26:03 [facility] CONSENT/REFUSAL FOR DIAGNOSIS AND 2018-11-15 [facility] 14:13:05 [place] [facility] Plan of Care Planned Activity Planned Date Details Comments Source Future Scheduled 2023-09-01 Screening for malignant [facility] 00:00:00 neoplasm of colon Medical Ce nter (procedure) [code = 131237059] Future Scheduled 2023-09-01 Screening for malignant [facility] Test 00:00:00 neoplasm of colon Medical Ce nter (procedure) [code = 466446574] Future Scheduled 2023-02-01 Lipid panel (procedure) [facility] Test 00:00:00 [code = 44886665] Medical Ce nter Future Scheduled 2021-12-14 INFLUENZA VACCINE (#1) [facility] 00:00:00 [code = INFLUENZA Medical Ce nter VACCINE (#1)] Future Scheduled 2021-04-[address] [facility] Test 00:00:00 (12+) [code = Medical Center DEPRESSION SCREENING (12+)] Future Scheduled 2020-12-19 COVID-19 VACCINE (3 - [facility]00 Booster for [facility] series) [code = COVID-19 VACCINE (3 - Booster for Moderna series)] Future Scheduled 2016-04-[address] [facility] 00:00:00 WELLNESS (YEAR 2 or Medical Center FIRST YEAR if no IPPE) [code = MEDICARE ANNUAL WELLNESS (YEAR 2 or FIRST YEAR if no IPPE)] Future Scheduled 2012 SHINGLES VACCINES ([address] [facility] 00:00:00 2) [code = SHINGLES Medical Center VACCINES (1 of 2)] Future Scheduled 1983-11-02 Screening for malignant [facility] Test 00:00:00 neoplasm of cervix Medical C enter (procedure) [code = 004146520] Future Scheduled 1981 DTAP/TDAP/TD VACCINES [facility] 00:00:00 (1 - Tdap) [code = Medical C enter DTAP/TDAP/TD VACCINES (1 - Tdap)] Future Scheduled 1962 Screening for malignant [facility] Test 00:00:00 neoplasm of breast Medical C enter (procedure) [code = 523509160] Future Scheduled 1962 CT Colonography (combo) [facility] Test 00:00:00 [code = CT Colonography [facility] (combo)] Future Scheduled 1962 Screening for malignant [facility] Test 00:00:00 neoplasm of colon Medical Ce nter (procedure) [code = 944545735] Future Scheduled 1962 Screening for malignant [facility] Test 00:00:00 neoplasm of colon Medical Ce nter (procedure) [code = 886393637] Future Scheduled 1962 Sigmoidoscopy [code = [facility] 00:[facility]00 Sigmoidoscopy] Medical Cente r Encounters Start End Encounter Admission Attending Care Care Encounter Source Date/Time Date/Time Type Type Clinicians Facility Department ID 2021-09-19 Outpatient Slade, Na STLMLC STLMLC [id number] 2 Common 13:44:00 [facility] 2021-08-16 Outpatient Slade, Na STLMLC STLMLC [id number] 2 Common 08:30:01 [facility] 2021-06-14 Outpatient Slade, Na STLMLC STLMLC [id number] 2 Common 10:15:02 [facility] 2021-05-25 Outpatient Colette PIPER INMICHOACANO JARROD [id number] Univers 16:04:35 [facility] 2021-05-10 Outpatient Slade, Na STLMLC STLMLC [id number] 2 Common 14:36:16 [facility] 2021-05-10 Outpatient Slade, Na STLMLC STLMLC [id number] 2 Common 14:35:31 [facility] 2021-05-10 Outpatient Slade, Na STLMLC STLMLC [id number] 2 Common 14:33:15 [facility] 2021-05-10 Outpatient Slade, Na STLMLC STLMLC [id number] 2 Common 14:26:40 [id number] [facility] 2021-05-10 Outpatient Slade, Na STLMLC STLMLC [id number] 2 Common 14:26:20 [id number] [facility] 2021-05-10 Outpatient Slade, Na STLMLC STLMLC [id number] 2 Common 13:09:45 [id number] [facility] 2021-05-10 Outpatient Slade, Na STLMLC STLMLC [id number] 2 Common 12:53:19 [id number] [facility] 2021-05-10 Outpatient Slade, Na STLMLC STLMLC [id number] 2 Common 12:44:09 [id number] [facility] 2021-05-10 Outpatient Slade, Na STLMLC STLMLC [id number] 2 Common 12:41:43 [id number] [facility] 2021-05-10 Outpatient Slade, Na STLMLC STLMLC [id number] 2 Common 12:14:04 [id number] [facility] 2021-05-10 Outpatient Slade, Na STLMLC STLMLC [id number] 2 Common 12:09:45 [id number] [facility] 2021-05-10 Outpatient Slade, Na STLMLC STLMLC [id number] 2 Common 12:08:20 [id number] [facility] 2021-05-10 Outpatient Slade, Na STLMLC STLMLC [id number] 2 Common 11:31:43 [id number] [facility] 2021-05-10 Outpatient Slade, Na STLMLC STLMLC [id number] 2 Common 11:27:56 [id number] [facility] 2021-05-10 Outpatient Slade, Na STLMLC STLMLC [id number] 2 Common 11:27:26 [id number] [facility] 2021-05-10 Outpatient Slade, Na STLMLC STLMLC [id number] 2 Common 11:16:24 [id number] [facility] 2021-04-12 Outpatient R KODI [facility] BRETT [id number] Univers 10:13:10 KENROY Stokes ity [facility] 2021-02-12 Outpatient R VERA [facility] JARROD [id number] Univers 02:51:20 MOISE ity of [facility] 2021-02-11 Emergency [facility] [id number] Univers 18:57:51 ity of [facility] 2021-02-11 Emergency [facility] [id number] Univers 10:52:36 ity of [facility] 2021-02-10 Emergency [facility] [id number] Univers 23:34:27 ity of [facility] 2021-02-10 Emergency [facility] [id number] Univers 16:03:46 ity of [facility] 2021-02-09 Emergency [facility] [id number] Univers 14:07:13 ity of [facility] 2021-02-09 Emergency [facility] [id number] Univers 13:02:51 ity of [facility] 2021-01-21 Outpatient PENNY, [facility] Surgery [id number] [facility] 22:26:45 GOTTI 2021-01-21 Inpatient ER NGUYỄN BRAULIO [facility] Gastro [id number] [facility] 22:24:24 2021-01-21 Outpatient PENNY, [facility] Surgery [id number] [facility] 18:10:30 GOTTI 2020-08-26 Inpatient ER NGUYỄN, BRAULIO [facility] Med [id number] [facility] 02:30:00 2022-01-02 2022-01-02 Outpatient R FE, [facility] [id number] Univers 10:00:00 10:00:00 [facility] [id number] 2022-01-02 2022-01-02 Outpatient R ADUM, [facility] [id number] Univers 10:00:00 10:00:00 VIRA [facility] 2021-11-13 2021-11-13 ambulatory STLMLC STLMLC [id number] Common 00:00:00 00:00:00 [facility] 2021-11-03 2021-11-03 Outpatient R OSIEL SIMPSON [facility] [id number] Univers 08:00:00 08:00:00 OSIEL SIMPSON [id number] [facility] 2021-11-02 2021-11-02 Emergency X [facility] ERT [id number] Univers 04:35:00 08:22:00 MARIANA [facility] 2021-11-02 2021-11-02 Emergency [facility] [id number] Univers 04:35:00 08:22:00 Mariana JOSSUE [id number] i [id number] [id number] 2021-10-19 2021-10-19 ambulatory STLMLC STLMLC [id number] Common 00:00:00 00:00:00 [facility] 2021-10-18 2021-10-18 ambulatory STLMLC STLMLC [id number] Common 00:00:00 00:00:00 [facility] 2021-10-06 2021-10-06 ambulatory STLMLC STLMLC [id number] Common 00:00:00 00:00:00 [facility] 2021-09-29 2021-09-29 [facility] [id number] Univers 06:25:00 10:55:00 ZULEMA li [facility] 2021-09-29 2021-09-29 [facility] [id number] Univers 06:25:00 10:55:00 Encounter Zulema MARCUM [id number] ity [facility] [id number] [id number] [address] 2021-09-29 2021-09-29 Surgery [facility] [id number] Univers 07:45:00 10:15:00 Zulema MARCUM [id number] [id number] [id number] [facility] [address] 2021-09-29 2021-09-29 Anesthesia Abe Arana [facility] [id number] Univers 07:57:00 09:44:00 Event Margarito Jerome [id number] ity of [facility] [id number] [id number] [facility] [address] 2021-09-29 2021-09-29 Orders Doctor HAMMER [id number] Univers 00:00:00 00:00:00 Only Unassigned, KATHIE [id number] ity of [place] [facility] [id number] Archie as [id number] [facility] [address] 2021-09-27 2021-09-27 Laboratory Only, Adc Test [facility] 1.2.840. [id number] Univers 08:30:00 08:45:00 Only Zulema Rodriguez [id number] ity [facility] [id number] [id number] [facility] [address] 2021-09-27 2021-09-27 Outpatient R JENNIFER DENNY, [facility] [id number] Univers 08:30:00 08:30:00 ZULEMA ity of [facility] 2021-09-27 2021-09-27 Linseed Oil Order Filler Elizabeth, Adc Lab Main [facility] 1.2.8 [id number] Univers 08:15:00 08:30:00 Visit Zulema Rodriguez [id number] [id number] [id number] [place] [facility] [address] [facility] 2021-09-27 2021-09-27 Outpatient R [facility] [id number] Univers 08:15:00 08:15:00 [id number] ity of [facility] 2021-09-27 2021-09-27 Orders Doctor HAMMER [id number] Univers 00:00:00 00:00:00 Only Unassigned, KATHIE [id number] ity of [place] [facility] [id number] Archie as [id number] [facility] [address] 2021-09-21 2021-09-21 ambulatory STLMLC STLMLC [id number] Common 00:00:00 00:00:00 [facility] 2021-09-12 2021-09-12 Transition NHAN Abdi [id number] Univers 00:00:00 00:00:00 of Care Cyn WILLS [id number] i ty [place] [id number] [facility] [address] 2021-09-01 2021-09-08 Inpatient X ALISHA INMICHOACANO BRETT [id number] Univers 13:22:00 17:57:00 RAF li [facility] 2021-09-01 2021-09-08 [facility] Jaki Polanco 1.2.840.1 [id number] Univers 13:22:00 17:57:00 Encounter Raf [place] 350.1.[address] [facility] [id number] [place] [id number] [facility] [address] 2021-09-08 2021-09-08 ambulatory STLMLC STLMLC [id number] Common 00:00:00 00:00:00 [facility] 2021-08-27 2021-08-27 Emergency X SASHA [facility] ERT [id number] Univers 10:45:00 15:33:00 MARU li [facility] 2021-08-27 2021-08-27 [facility] 1.2.840.114 [id number] Univers 10:45:00 15:33:00 Maru MARCUM 350.1.13.10 ity of [place] [id number] [facility] 084 Branch 2021-08-25 2021-08-25 ambulatory STLMLC STLMLC [id number] Common 00:00:00 00:00:00 [facility] 2021-08-22 2021-08-22 ambulatory STLMLC STLMLC [id number] Common 00:00:00 00:00:00 [facility] 2021-08-07 2021-08-07 ambulatory STLMLC STLMLC [id number] Common 00:00:00 00:00:00 [facility] 2021-08-01 2021-08-01 Transition NHAN Hussein 1.2.840.114 [id number] Univers 00:00:00 00:00:00 of Juan VIEIRAY 350.1.13.10 it y of [place] [phone] [facility] 403 [address] 2021-08-01 2021-08-01 ambulatory STLMLC STLMLC [id number] Common 00:00:00 00:00:00 [facility] 2021-07-23 2021-07-29 Inpatient X AIDAN [facility] BRETT [id number] Univers 15:34:00 13:50:00 FRED ity [facility] 2021-07-23 2021-07-29 [facility] 1.2.840. 114 [id number] Univers 15:34:00 13:50:00 Encounter Liliya Hinojosa 350.1.13.10 ity of [place] 4.2.7.2.686 [facility] [id number] [facility] 081 Branch 2021-07-04 2021-07-04 [facility] JARROD [id number] Univers 10:42:00 13:20:00 GULSHAN ity of [facility] 2021-07-04 2021-07-04 Hospital [facility] 1.2.987.484 [id number] Univers 10:42:00 13:20:00 Encounter Gulshan MARCUM 350.1.13.10 ity [facility] [place].2.[place] [phone] [facility] 071 Branch 2021-07-04 2021-07-04 Surgery [facility] 1.2.840.114 [id number] Univers 12:00:00 12:39:00 Gulshan Hawley [place] 350.1.13.10 i ty of [place] [phone] [facility] 020 Branch 2021-07-04 2021-07-04 Orders Doctor JAQUELIN 1.2.840.114 [id number] Univers 00:00:00 00:00:00 Only Unassigned, KATHIE 350.1.13.10 ity of [facility] 4.2.7.2.686 Archie as [phone] [facility] 009 Branch 2021-06-15 2021-06-15 ambulatory STLMLC STLMLC [id number] Common 00:00:00 00:00:00 [facility] 2021-06-12 2021-06-12 ambulatory STLMLC STLMLC [id number] Common 00:00:00 00:00:00 [facility] 2021-06-05 2021-06-05 Outpatient R [facility] [id number] -[id number] Univers 10:30:00 10:30:00 [id number] [facility] 2021-06-05 2021-06-05 Outpatient [facility] [id number] Univers 10:30:00 10:30:00 GULSHAN [facility] 2021-06-03 2021-06-03 Emergency [facility] E[facility] [id number] Univers 14:00:00 22:08:00 MARIANA [facility] 2021-06-03 2021-06-03 Emergency [facility] 1.2.692.806 [id number] Univers 14:00:00 22:08:00 Marianaolga MARCUM 350.1.13.10 i ty of [place] [facility] [id number] [facility] 084 [address] 2021-06-01 2021-06-01 ambulatory STLMLC STLMLC [id number] Common 00:00:00 00:00:00 [facility] 2021-05-21 2021-05-22 Emergency X JAROCHO [facility] ERT [id number] Univers 23:29:00 01:11:00 CONSUELO ity [facility] 2021-05-21 2021-05-22 Emergency Ebrahim, [facility] 1.2.840.114 [id number] Univers 23:29:00 01:11:00 Consuelo MARCUM 350.1.13.10 i ty of [place] [id number] [facility] 084 Branch 2021-05-19 2021-05-19 Letter JAQUELIN Mendoza 1.2.840.114 [id number] Univers 00:00:00 00:00:00 (Out) Kelsy VÁZQUEZ 350.1.13.10 it y of [facility] 4.2.7.2.686 Archie as [id number] [facility] 019 Branch 2021-05-19 2021-05-19 Telephone Nurse, Phillip [facility] 1.2.840.114 [id number] Univers 00:00:00 00:00:00 Db Urgent HEALTH 350.1.13.10 ity of [facility] 4.2.7.2.686 Archie as BALAJI?BLEA [id number] [address] MEDICAL OFFICE BUILDING 2021-05-18 2021-05-18 Outpatient R LEANNM, [facility] [id number] Univers 09:00:00 09:41:26 CONSUELO ity [facility] 2021-05-18 2021-05-18 Urgent EbraConsuelo muñoz [facility] 1.2.840.114 [id number] Univers 09:00:00 09:20:00 Care Manoj [facility] 350.1.13.10 ity of [place] 4.2.7.2.686 Archie as BALAJI?BLEA [id number] [address] MEDICAL OFFICE BUILDING 2021-05-18 2021-05-18 Outpatient R [facility] [id number] -[id number] Univers 09:00:00 09:00:00 [id number] ity [facility] 2021-05-18 2021-05-18 Letter Doctor HAMMER 1.2.840.114 [id number] Univers 00:00:00 00:00:00 (Out) PadmassKATHIE bonilla 350.1.13.10 ity of [place] [facility] 4.2.7.2.686 Archie as [id number] [facility] 044 [address] 2021-05-15 2021-05-15 ambulatory STLMLC STLMLC [id number] Common 00:00:00 00:00:00 [facility] 2021-05-09 2021-05-09 ambulatory STLMLC STLMLC [id number] Common 00:00:00 00:00:00 [facility] 2021-04-19 2021-04-19 ambulatory STLMLC STLMLC [id number] Common 00:00:00 00:00:00 [facility] 2021-04-18 2021-04-18 Outpatient R [facility] [id number] -[id number] Univers 10:15:00 10:15:00 [id number] ity [facility] 2021-04-18 2021-04-18 Outpatient R KODI [facility] [id number] Univers 10:15:00 10:15:00 KENROY Stokes o f [facility] 2021-04-15 2021-04-15 [facility] 1.2.840.114 [id number] Univers 13:41:00 15:39:00 Consuelo MARCUM 350.1.13.10 i ty [facility] 4.2.7.2.686 [place] [facility] [id number] [facility] 084 Branch 2021-04-15 2021-04-15 Nurse Nurse, Phillip [facility] 1.2.840.114 [id number] Univers 13:20:00 13:40:00 Visit Korina Aranda [facility] 350.1.13.10 ity [facility] 4.2.7.2.686 Archie as BALAJI?BLEA [id number] [address] MEDICAL OFFICE BUILDING 2021-04-15 2021-04-15 Outpatient R MANOJ [facility] [id number] Univers 13:20:00 13:37:39 [facility] 2021-04-15 2021-04-15 [facility] ERT [id number] Univers 13:20:00 13:37:39 KORINA [facility] 2021-04-15 2021-04-15 Outpatient R [facility] [id number] -[id number] Univers 13:20:00 13:20:00 [id number] [facility] 2021-04-03 2021-04-03 ambulatory STLMLC STLMLC [id number] Common 00:00:00 00:00:00 [facility] 2021-03-31 2021-03-31 ambulatory STLMLC STLMLC [id number] Common 00:00:00 00:00:00 [facility] 2021-03-25 2021-03-25 Emergency X EBRAMDFalguni, [facility] ERT [id number] Univers 18:03:00 21:41:00 CONSUELO [facility] 2021-03-25 2021-03-25 [facility] 1.2.840.114 [id number] Univers 18:03:00 21:41:00 Consuelo [place] 350.1.13.10 i ty [facility] 4.2.7.2.686 [place] [facility] [phone] [address] 2021-03-25 2021-03-25 Outpatient R [facility] [id number] -[id number] Univers 17:30:00 17:30:00 [id number] ity [facility] 2021-03-25 2021-03-25 Outpatient R [facility] [id number] Univers 11:40:00 11:23:42 TOSHA [facility] 2021-03-25 2021-03-25 Imm/Inj Vaccine, Ang Db [facility] 1.2.840 .114 [id number] Univers 11:00:13 11:10:13 Visit Hakeem [facility] 350.1.13.10 ity [facility] 4.2.7.2.686 Archie as BALAJI?BLEA [phone] [place] HORVATH [address] [place] [address] MEDICAL OFFICE BUILDING 2021-03-21 2021-03-21 ambulatory STLMLC STLMLC [id number] Common 00:00:00 00:00:00 [facility] 2021-03-20 2021-03-20 Emergency X [facility] ERT [id number] Univers 16:03:00 19:39:00 MEKA ity of [facility] 2021-03-20 2021-03-20 Emergency [facility] 1.2.161.329 [id number] Univers 16:03:00 19:39:00 Meka Richey [place] 350.1.13.10 ity of [place] 4.2.7.2.686 [facility] [id number] [address] 2021-02-12 2021-02-12 Emergency X [facility] ERT [id number] Univers 14:09:00 21:08:00 ROSALINDA itshey [facility] 2021-02-12 2021-02-12 Emergency [facility] 1.2.497.812 [id number] Univers 14:09:00 21:08:00 Rosalinda MARCUM 350.1.13.10 ity of [place] 4.2.7.2.686 [facility] [id number] [address] 2021-01-30 2021-01-30 Outpatient R [facility] [id number] -[id number] Univers 00:00:00 00:00:00 VIRA [id number] ity of [facility] 2021-01-17 2021-01-18 [facility] 1.2.840.114 [id number] Univers 21:29:00 01:13:00 Maru Marcum 350.1.13.10 ity [facility] 4.2.7.2.686 [facility] [id number] [address] 2021-01-17 2021-01-18 Emergency Yue [facility] ERT [id number] Univers 21:29:00 01:13:00 MARU ity of [facility] 2021-01-17 2021-01-17 Orders Doctor HAMMER 1.2.840.114 [id number] Univers 00:00:00 00:00:00 Only Unassigned, KATHIE 350.1.13.10 ity of [place] [facility] 4.2.7.2.686 Archie [id number] [place] [address] Branch 2021-01-07 2021-01-07 [facility] 1.2.028.834 [id number] Univers 11:38:27 23:59:00 Encounter [facility] 350.1.13.10 ity of [place] 4.2.7.2.686 Archie as Balaji?Blea [phone] [place] horvath [address] [place] [facility] 2021-01-07 2021-01-07 Outpatient R [facility] [id number] Univers 11:40:00 11:55:26 CONSUELO shey [facility] 2021-01-07 2021-01-07 Urgent Consuelo Avendaño [facility] 1.2.840.114 [id number] Univers 11:22:24 11:55:26 [facility] 350.1.13.10 ity of [place] 4.2.7.2.686 Archie as Balaji?Blea [id number] [facility] [address] [place] [facility] 2021-01-07 2021-01-07 Outpatient R [facility] [id number] -[id number] Univers 11:40:00 11:40:00 [id number] [facility] 2021-01-07 2021-01-07 Letter JAQUELIN [place] 1.2.840.114 [id number] Univers 00:00:00 00:00:00 (Out) Karlene VÁZQUEZ 350.1.13.10 i [facility] 4.2.7.2.686 Archie as [phone] [address] 2021-01-02 2021-01-02 Outpatient R [facility] [id number] -[id number] Univers 00:00:00 00:00:00 VIRA [id number] [facility] 2020-12-30 2020-12-30 Emergency X [facility] ERT [id number] Univers 13:14:00 17:53:00 MARU [facility] 2020-12-30 2020-12-30 Emergency [facility] 1.2.840.114 [id number] Univers 13:14:00 17:53:00 Maru Marcum 350.1.13.10 [facility] 4.2.7.2.686 [place] [phone] [place] [address] [place] 2020-12-30 2020-12-30 Office Ad, [facility] 1.2.840.114 [id number] Univers 10:00:12 10:49:11 Visit Vira Marcum 350.1.13.10 ity of [place].2.686 [place] Profess[place] [phone] [place] [address] [place] [address] 2020-12-30 2020-12-30 Outpatient R ADUM, [facility] [id number] Univers 09:30:00 10:49:11 VIRA ity [facility] 2020-12-30 2020-12-30 Outpatient R AD, [facility] [id number] -[id number] Univers 08:30:00 08:30:00 VIRA [id number] ity [facility] 2020-12-23 2020-12-23 [facility] 1.2.840.114 [id number] Univers 15:59:00 23:59:00 Encounter Vira Steiner [place] 350.1.13.10 ity of [place] 4.2.7.2.686 [place] [id number] [facility] [address] [place] 2020-12-23 2020-12-23 Outpatient R AD, [facility] [id number] -[id number] Univers 00:00:00 00:00:00 VIRA [id number] [facility] 2020-12-23 2020-12-23 Outpatient R AD, [facility] [id number] Univers 00:00:00 00:00:00 VIRA ity [facility] 2020-12-16 2020-12-16 Office Ad, [facility] 1.2.840.114 [id number] Univers 09:56:42 11:11:19 Visit Vira [place] 350.1.13.10 ity of [place] 4.2.7.2.686 [place] Profess[place] [phone] [place] [address] [place] [address] 2020-12-16 2020-12-16 Outpatient R AD, [facility] [id number] -[id number] Univers 10:00:00 10:00:00 VIRA [id number] ity [facility] 2020-12-16 2020-12-16 Outpatient R FE [facility] [id number] Univers 10:00:00 10:00:00 VIRA [facility] 2020-12-14 2020-12-14 Outpatient STLMLC STLC [id number] Common 00:00:00 00:00:00 [facility] 2020-12-05 2020-12-05 Emergency [facility] 1.2.840.114 [id number] Univers 14:07:00 18:52:00 Alirio Marcum 350.1.13.10 [facility] 4.2.7.2.686 [facility] [phone] [place] [address] [address] 2020-12-05 2020-12-05 [facility] [id number] Univers 14:07:00 18:52:00 ALIRIO li [facility] 2020-11-10 2020-11-10 Outpatient STLC STLC [id number] Common 00:00:00 00:00:00 [facility] 2020-10-11 2020-10-12 Emergency Mariana Ramirez 1.2.840. 114 [id number] 08:30:00 20:40:00 Kadi Duggan 350.1.13.10 [place] [address].2.7.2.686 [id number] [facility] 2020-10-11 2020-10-12 Emergency Mariana Ramirez 1.2.840. 114 [id number] [facility] 08:30:00 20:40:00 Kadi Duggan 350.1.13.10 ity [place] [address].2.7.2.686 [place] [phone] [place] 936665 [place] 2020-10-11 2020-10-12 [facility] [id number] Univers 08:30:00 20:40:00 URIEL [facility] 2020-10-04 2020-10-04 Emergency [facility] 1.2.087.098 [id number] 17:45:00 20:23:00 Maisha Marcum 350.1.13.10 [place] 4.2.7.2.686 [place] [id number] 084 2020-10-04 2020-10-04 Emergency [facility] 1.2.403.688 [id number] [facility] 17:45:00 20:23:00 Maisha Marcum 350.1.13.10 i ty of [place] 4.2.7.2.686 [facility] [id number] [place] [address] [address] 2020-10-04 2020-10-04 Emergency X [facility] ERT [id number] Univers 17:45:00 20:23:00 MAISHA li [facility] 2020-09-30 2020-09-30 Outpatient STLMLC STLMLC [id number] Common 00:00:00 00:00:00 [facility] 2020-09-29 2020-09-29 Outpatient STLMLC STLMLC [id number] Common 00:00:00 00:00:00 [facility] 2020-09-19 2020-09-19 Outpatient STLMLC STLMLC [id number] Common 00:00:00 00:00:00 [facility] 2020-09-16 2020-09-16 Outpatient STLMLC STLMLC [id number] Common 00:00:00 00:00:00 [facility] 2020-09-02 2020-09-02 Outpatient STLMLC STLMLC [id number] Common 00:00:00 00:00:00 [facility] 2020-08-05 2020-08-05 Emergency [facility] 1.2.840.114 [id number] 08:16:00 09:12:00 Maru Marcum 350.1.13.10 [place] 4.2.7.2.686 [place] [id number] 084 2020-08-05 2020-08-05 Emergency [facility] 1.2.840.114 [id number] [facility] 08:16:00 09:12:00 Maru Marcum 350.1.13.10 ity of [place] 4.2.[place].2.[place] [id number] [facility] [address] 2020-08-05 2020-08-05 Emergency X SASHA, [facility] ERT [id number] Univers 08:16:00 09:12:00 MARU [facility] 2020-07-19 2020-07-19 Outpatient R SALMA [facility] [id number] Univers 11:20:00 11:11:33 SULAIMAN [facility] 2020-07-18 2020-07-18 [facility] 1.2.840.114 [id number] 06:28:00 08:29:00 Encounter Moise S Ray 350.1.13.10 [place] 4.2.7.2.686 Surgical [id number] [place] [address] 2020-07-18 2020-07-18 [facility] 1.2.840.114 [id number] Univers 06:28:00 08:29:00 Encounter Moise S Ray 350.1.13.10 ity of [place] 4.2.7.2.686 [place] [phone] [facility] [address] [place] 2020-07-18 2020-07-18 Surgery [facility] 1.2.840.114 [id number] 07:30:00 08:00:00 Ray 350.1.13.10 [place] 4.2.7.2.686 Surgical [id number] [place] 020 2020-07-18 2020-07-18 Surgery [facility] 1.2.122.399 [id number] Univers 07:30:00 08:00:00 Moise S Ray 350.1.13.10 ity of [place] 4.2.7.2.686 [place] [id number] [facility] [address] [place] 2020-07-15 2020-07-15 Outpatient R [facility] [id number] -[id number] Univers 13:15:00 13:15:00 [id number] [facility] 2020-07-15 2020-07-15 Outpatient [facility] [id number] Univers 08:00:00 08:00:00 MOISE ity [facility] 2020-07-11 2020-07-11 Outpatient Colette MARSH, [facility] [id number] Univers 12:00:00 12:00:00 SULAIMAN ity [facility] 2020-07-08 2020-07-08 Outpatient Colette MARSH, [facility] [id number] Univers 10:40:00 10:40:00 SULAIMAN ity [facility] 2020-07-07 2020-07-07 Emergency Jaki Polanco [facility] 1.2.840.114 [id number] 18:47:00 22:05:00 Sydnie Marcum 350.1.13.10 [place] 4.2.7.2.686 [place] [id number] [facility] 2020-07-07 2020-07-07 Emergency Jaki Polanco [facility] 1.2.840.114 [id number] Univers 18:47:00 22:05:00 Sydnie Marcum 350.1.13.10 i ty of [place] 4.2.7.2.686 [facility] [id number] [facility] [address] [place] 2020-07-07 2020-07-07 Emergency X Jaki POLANCO [facility] ERT [id number] Univers 18:47:00 22:05:00 ity [facility] 2020-07-07 2020-07-07 Orders Doctor JAQUELIN 1.2.840.114 [id number] 00:00:00 00:00:00 Only UnassignedKATHIE 350.1.13.10 [place] [facility] 4.2.7.2.686 [id number] 009 2020-07-07 2020-07-07 Orders Doctor JAQUELIN 1.2.840.114 [id number] Univers 00:00:00 00:00:00 Only UnassignedKATHIE 350.1.13.10 ity of [place] [facility] 4.2.7.2.686 Archie [id number] [facility] [address] [place] 2020-07-07 2020-07-07 Outpatient STLMLC STLMLC [id number] Common 00:00:00 00:00:00 [facility] 2020-07-04 2020-07-04 [facility] 1.2.840.114 [id number] 06:30:00 08:44:00 Encounter Moise Mason [place] 350.1.13.10 [place] 4.2.7.2.686 Surgical [id number] [place] [address] 2020-07-04 2020-07-04 [facility] 1.2.840.114 [id number] [facility] 06:30:00 08:44:00 Encounter Moise [place] 350.1.13.10 ity of [place] 4.2.[place].2.686 [place] [id number] [address] 2020-07-04 2020-07-04 Outpatient R VERA, [facility] JARROD [id number] [facility] 06:30:00 08:44:00 MOISE ity of [facility] 2020-07-04 2020-07-04 Orders Doctor HAMMER 1.2.840.114 [id number] 00:00:00 00:00:00 Only Unassigned, KATHIE 350.1.13.10 [place] [facility] 4.2.7.2.686 [id number] [facility] 2020-07-04 2020-07-04 Orders Doctor JAQUELIN 1.2.840.114 [id number] [facility] 00:00:00 00:00:00 Only Unassigned, KATHIE 350.1.13.10 ity of [place] [facility] 4.2.7.2.686 Archie as [id number] [address] 2020-07-01 2020-07-01 Laboratory Only, [facility] 1.2.840.114 [id number] 09:02:10 09:17:10 Only Test Ray 350.1.13.10 [place] 4.2.7.2.686 [place] [id number] 353 2020-07-01 2020-07-01 Laboratory Only, [facility] Test [facility] 1.2.840. 114 [id number] [facility] 09:02:10 09:17:10 Only Moise Gamez 350.1.13.1 0 ity of [place] 4.2.[place].2.[place] [id number] [facility] [address] 2020-07-01 2020-07-01 Outpatient R [facility] [id number] -[id number] Univers 08:30:00 08:30:00 [id number] ity [facility] 2020-07-01 2020-07-01 Outpatient R [facility] [id number] Univers 08:30:00 08:30:00 MOISE ity [facility] 2020-07-01 2020-07-01 Orders Doctor JAQUELIN 1.2.840.114 [id number] 00:00:00 00:00:00 Only Unassigned, KATHIE 350.1.13.10 [place] [facility] 4.2.7.2.686 [id number] 009 2020-07-01 2020-07-01 Orders Doctor JAQUELIN 1.2.840.114 [id number] Univers 00:00:00 00:00:00 Only Unassigned, KATHIE 350.1.13.10 ity of [place] [facility] 4.2.7.2.686 Archie as [id number] [address] 2020-06-30 2020-06-30 Outpatient STLMLC STLMLC [id number] Common 00:00:00 00:00:00 [facility] 2020-06-22 2020-06-22 Outpatient STLMLC STLMLC [id number] Common 00:00:00 00:00:00 [facility] 2020-06-20 2020-06-20 [facility] 1.2.840.114 [id number] 06:29:00 08:58:00 Encounter Moise Maxine [place] 350.1.13.10 [place] 4.2.7.2.686 Surgical [id number] [place] [address] 2020-06-20 2020-06-20 [facility] 1.2.840.114 [id number] Univers 06:29:00 08:58:00 Encounter Moise S Ray 350.1.13.10 ity of [place] 4.2.7.2.686 [facility] [id number] [address] 2020-06-20 2020-06-20 Outpatient R VERA, [facility] JARROD [id number] Univers 06:29:00 08:58:00 MOISE ity of [facility] 2020-06-20 2020-06-20 Anesthesia [facility] 1.2.840.11 [id number] 08:03:00 08:12:00 Event Dominguez Seo 350.1.13.10 [place] 4.2.7.2.686 Surgical [id number] [place] [address] 2020-06-20 2020-06-20 Anesthesia Abe Arana [facility] 1.2.840.11 [id number] [facility] 08:03:00 08:12:00 Event Dominguez Seo 350.1.13.10 ity of [place] [id number] [address] 2020-06-20 2020-06-20 Orders Doctor JAQUELIN 1.2.840.114 [id number] 00:00:00 00:00:00 Only Unassigned, KATHIE 350.1.13.10 [place] [facility] 4.2.7.2.686 [id number] [facility] 2020-06-20 2020-06-20 Orders Doctor JAQUELIN 1.2.840.114 [id number] Univers 00:00:00 00:00:00 Only Unassigned, KATHIE 350.1.13.10 ity of [place] [facility]ITAL 4.2.7.2.686 Archie as [id number] [address] 2020-06-19 2020-06-19 Outpatient [facility] [id number] Univers 08:15:00 08:15:00 ity of [facility] 2020-06-17 2020-06-17 Linseed [employer] Order FillerMarcie Ott [facility] 1.2.840.114 [id number] 15:27:53 15:42:53 Visit Lab Main Jossue 350.1.13.10 [place] 4.2.7.2.686 Professio [phone] [address] 2020-06-17 2020-06-17 Linseed Oil Order Filler Marcie Johnson Lab Main [facility] 1.2.8 40.114 [id number] Univers 15:27:53 15:42:53 Visit Moise Gamez 350.1.13.1 0 [facility] [place] 4.2.7.2.[place] [phone] [place] [address] 2020-06-17 2020-06-17 Laboratory Only, [facility] 1.2.840.114 [id number] 15:26:19 15:41:19 Only Test Ray 350.1.13.10 [place] 4.2.7.2.686 [place] [phone] [facility] 2020-06-17 2020-06-17 Laboratory Only, [facility] Test [facility] 1.2.840. 114 [id number] Univers 15:26:19 15:41:19 Only Moise Gamez 350.1.13.1 0 [facility] 4[place]2.7.2.[place] [phone] [address] 2020-06-17 2020-06-17 [facility] [id number] Univers 12:30:00 12:30:00 MOISE ity [facility] 2020-06-17 2020-06-17 Outpatient R [facility] [id number] Univers 12:15:00 12:15:00 [id number] ity [facility] 2020-06-17 2020-06-17 Orders Doctor HAMMER 1.2.840.114 [id number] 00:00:00 00:00:00 Only Unassigned, KATHIE 350.1.13.10 [facility] 4.2.7.2.686 [phone] [id number] 2020-06-17 2020-06-17 Orders Doctor HAMMER 1.2.840.114 [id number] Univers 00:00:00 00:00:00 Only Unassigned, KATHIE 350.1.13.10 [facility]y of [facility] 4.2.7.2.686 [place] as [phone] [address] 2020-05-22 2020-05-22 [facility]patient [facility] [id number] Univers 08:50:00 08:50:00 SULAIMAN ity of [facility] 2020-05-06 2020-05-06 Emergency Ron, [facility] 1.2.840.114 [id number] 15:21:00 18:38:00 Kirstin Marcum 350.1.13.10 [place] 4.2.7.2.686 [place] [phone] 084 2020-05-06 2020-05-06 Emergency Ron, [facility] 1.2.840.114 [id number] Univers 15:21:00 18:38:00 Kirstin [place] 350.1.13.10 i [place].2.686 [place] [phone] [address] 2020-05-04 2020-05-04 Outpatient R [facility] [id number] Univers 09:20:00 09:20:00 [id number] ity [facility] 2020-05-04 2020-05-04 Outpatient R [facility] [id number] Univers 09:20:00 09:20:00 ity [facility] 2020-05-04 2020-05-04 Laboratory Lab, [facility] 1.2.840.114 [id number] 08:54:13 09:14:13 Only Fam Pob I Health 350.1.13.10 [place] 4.2.7.2.686 Professio [phone] [place] [address] [address] 2020-05-04 2020-05-04 Laboratory Lab, [facility] Fam Pob I [facility] 1.2. 840.114 [id number] Univers 08:54:13 09:14:13 Only Anene, [facility] 350.1.13.10 ity [facility] 4.2.7.2.686 Archie as Professio [phone] [place] [address] Office [address] 2020-04-14 2020-04-14 Letter Jeannie Slade [facility] 1.2.840.114 [id number] 00:00:00 00:00:00 (Out) [place] 350.1.13.10 [facility] 4.2.7.2.686 [id number] 043 2020-04-14 2020-04-14 Letter Jeannie Slade 1.2.840.114 [id number] [facility] 00:00:00 00:00:00 (Out) KATHIE 350.1.13.10 it y of HOSPITAL 4.2.7.2.686 Archie as [phone] [facility] [address] 2020-03-25 2020-03-26 Emergency [facility] 1.2.755.413 [id number] 21:13:00 02:01:00 Erasmo Marcum 350.1.13.10 [place] 4.2.7.2.686 [place] [id number] 08 2020-03-25 2020-03-26 Emergency [facility] 1.2.268.245 [id number] [facility] 21:13:00 02:01:00 Erasmo Marcum 350.1.13.10 ity of [place] 4.2.7.2.686 [facility] [id number] [facility] [address] 2020-03-18 2020-03-18 Orders Doctor HAMMER 1.2.840.114 [id number] 00:00:00 00:00:00 Only Unassigned, KATHIE 350.1.13.10 [place] [facility] 4.2.7.2.686 [id number] 009 2020-03-18 2020-03-18 Orders Doctor HAMMER 1.2.840.114 [id number] [facility] 00:00:00 00:00:00 Only Unassigned, KATHIE 350.1.13.10 ity of [place] [facility] 4.2.7.2.686 Archie as [phone] [facility] [address] 2020-03-08 2020-03-08 [facility] [id number] Common 00:00:00 00:00:00 [facility] 2020-03-07 2020-03-07 [facility] [id number] Common 00:00:00 00:00:00 [facility] 2020-01-31 2020-02-08 [facility] RamirezLondonMariana [facility] 1.2.840.1 14 [id number] 10:39:00 16:12:00 Encounter Kirstin Ron [facility] 350.1.13.10 [place] 4.2.7.2.686 Katheryn Retana Nguyen [id number] [facility] 110 ([facility]) 2020-01-31 2020-02-08 [facility] Mariana Ramirez [facility] 1.2.840.1 [id number] [facility] 10:39:00 16:12:00 Encounter Kirstin Ron [facility] 350.1.13.10 ity of [place] 4.2.7.2.686 [facility] [phone] [place] [address] [address] ([facility]) 2020-01-11 2020-01-11 [facility] [id number] Common 00:00:00 00:00:00 [facility] 2020-01-06 2020-01-06 [facility] [id number] Common 00:00:00 00:00:00 [facility] 2019-12-18 2019-12-18 [facility] [id number] [id number] 15:26:00 19:16:00 Meka G Ray 350.1.13.10 [place] 4.2.7.2.686 [place] [id number] [facility] 2019-12-18 2019-12-18 [facility] 1.2.267.262 [id number] [facility] 15:26:00 19:16:00 Meka G Ray 350.1.13.10 ity [facility] 4.2.7.2.686 [facility] [phone] [address] 2019-10-06 2019-10-06 Out[facility] [id number] Common 10:40:00 10:40:[address] [facility] 2019-09-17 2019-09-17 Out[facility] [id number] Common 10:24:00 10:24:[address] [facility] 2019-08-21 2019-08-21 Emergency [facility] 1.2.859.631 [id number] 19:42:19 23:51:00 Erasmo Marcum 350.1.13.10 [place] 4.2.7.2.686 [place] [id number] 084 2019-08-21 2019-08-21 Emergency X KENAN [facility] ERT [id number] Univers 19:42:19 23:51:00 ERASMO ity [facility] 2019-08-21 2019-08-21 [facility] 1.2.885.756 [id number] Univers 19:42:19 23:51:00 Erasmo Marcum 350.1.13.10 ity of [place] 4.2.7.2.686 [facility] [id number] [place] [address] [address] 2019-07-14 2019-07-14 Outpatient [facility] [id number] Common 15:00:00 15:00:00 [facility] KROGNI [facility] 2019-06-25 2019-06-25 Emergency [facility] 1.2.840.114 [id number] 16:52:11 20:04:00 Kirstin Marcum 350.1.13.10 [place] 4.2.7.2.686 [place] [id number] [facility] 2019-06-25 2019-06-25 Emergency [facility] 1.2.840.114 [id number] Univers 16:52:11 20:04:00 Kirstin Marcum 350.1.13.10 i ty of [place] 4.2.7.2.686 [facility] [id number] [address] 2019-06-19 2019-06-19 Emergency [facility] 1.2.419.768 [id number] 2000 13:58:11 19:09:00 Rosalidna [place] 350.1.13.10 [place] 4.2.7.2.686 [place] [phone] [facility] 2019-06-19 2019-06-19 Emergency [facility] 1.2.080.861 [id number] Univers 13:58:11 19:09:00 Rosalinda [place] 350.1.13.10 ity of [place] 4.2[address]7.[address] [place] [id number] 2019-06-19 2019-06-19 Orders Doctor JAQUELIN 1.2.840.114 [id number] 00:00:00 00:00:00 Only Unassigned, KATHIE 350.1.13.10 [place] [facility] 4.2.7.2.686 [id number] 009 2019-06-19 2019-06-19 Orders Doctor JAQUELIN 1.2.840.114 [id number] Univers 00:00:00 00:00:00 Only Unassigned, KATHIE 350.1.13.10 ity of [place] [facility] 4.2.7.2.686 Archie as [phone] [address] 2019-05-19 2019-05-19 Emergency [facility] 1.2.142.108 [id number] 18:29:04 21:26:00 Gary Marcum 350.1.13.10 [place] 4.2.7.2.686 [place] [phone] [facility] 2019-05-19 2019-05-19 Emergency X [facility] ERT [id number] Univers 18:29:04 21:26:00 GARY guillermo [facility] 2019-05-19 2019-05-19 Emergency [facility] 1.2.469.225 [id number] Univers 18:29:04 21:26:00 Gary Marcum 350.1.13.10 i ty [place] [id number] [address] 2019-03-02 2019-03-02 Out[facility] [id number] Common 10:40:00 10:40:[address] [facility] 2019-02-04 2019-02-04 Outpatient [facility] [id number] Common 10:55:00 10:55:[address] [facility] 2018-12-24 2018-12-24 Telephone Christina [facility] 1.2.840.114 [id number] 00:00:00 00:00:00 [facility] 350.1.13.10 Surgical 4.2.7.2.686 Specialti [id number] hazel [place] 2018-12-24 2018-12-24 Telephone [facility] 1.2.840.114 [id number] Univers 00:00:00 00:00:00 Steven Chen 350.1.13.10 it y of Surgical 4.2.7.2.686 Archie as Specialti [id number] Me dical es 198 [facility] 2018-12-18 2018-12-18 [facility] 1.2.840.114 [id number] Univers 08:54:57 23:59:00 Encounter Steven Chen 350.1.13.10 ity of Surgical 4.2.7.2.686 Archie as Specialti [id number] [place] dical [place] 809 [facility] 2018-12-18 2018-12-18 Office [facility] 1.2.576.854 [id number] Univers 08:37:16 09:02:40 Visit Steven Chen 350.1.13.10 it y of Surgical 4.2.7.2.686 Archie as Specialti [phone] [place] dical es 198 [facility] 2018-12-08 2018-12-08 Office [facility] 1.2.114.956 [id number] Univers 15:02:42 15:51:02 Visit Steven Chen 350.1.13.10 it y of Surgical 4.2.7.2.686 Archie as Specialti [id number] [place] dical es 198 [facility] 2018-12-05 2018-12-05 [facility] 1.2.840.114 [id number] Univers 09:47:09 23:59:00 Encounter Ector Maxine Ray 350.1.13.10 ity of [place] [id number] [facility] [address] [place] 2018-12-05 2018-12-05 Office [facility] 1.2.196.327 [id number] Univers 07:55:02 09:26:33 Visit Steven Chen 350.1.13.10 it y of Surgical 4.2.7.2.686 Archie as Specialti [id number] [place] dical es 198 [facility] 2018-12-01 2018-12-01 Emergency Jaki Polanco [place] 1.2.840.114 [id number] Univers 14:24:08 18:38:00 Sydnie Marcum 350.1.13.10 i ty of [place] 4.2.7.2.686 [facility] [id number] [facility] [address] 2018-11-18 2018-11-18 Transition Nhan Smith 1.2.840.114 [id number] Univers 00:00:00 00:00:00 of Care Pricilla Vieiray 350.1.13.10 it y of [place] 4.2.7.2.686 [facility] [id number] [facility] [address] 2018-11-15 2018-11-17 Emergency Mariana Ramirez 1.2.840. 114 [id number] Univers 09:29:33 16:00:00 Sundar Brooke 350.1.13.10 ity of [facility] 4.2.7.2.686 [place] [id number] [facility] [address] 2018-10-07 2018-10-07 Outpatient [facility] [id number] Common 11:00:00 11:00:[address] [facility] 2018-07-28 2018-07-28 Outpatient [facility] [id number] Common 09:57:00 09:57:[address] [facility] 2018-07-25 2018-07-25 Outpatient [facility] [id number] Common 14:40:00 14:40:[address] [facility] Results Test Description Test Time Test Comments Results Result Comments Source CBC WITH DIFF 2021-09-08 10:06:02 Test Item Value Reference Range Interpretation Comme nts WBC (test code = 6690-2) See_Comment L [A utomated message] The system which ge nerated this result transmit gulshan reference range: 4.30 - 1 1.10 10*3/?L. The reference r luca was not used to interpr et this result as normal/abnor mal. RBC (test code = 789-8) See_Comment L [Au tomated message] The system which ge nerated this result transmit gulshan reference range: 3.93 - 5 .25 10*6/?L. The reference r luca was not used to interpr et this result as normal/abnor mal. HGB (test code = 718-7) 10.3 g/dL 11.6-15.0 L HCT (test code = 4544-3) 31.8 % 35.7-45.2 L MCV (test code = 787-2) 94.6 fL 80.6-95.5 MCH (test code = 785-6) 30.7 pg 25.9-32.8 MCHC (test code = 786-4) 32.4 g/dL 31.6-35.1 RDW-SD (test code = 30396-1) 45.6 fL 39.0-49.9 RDW-CV (test code = 788-0) 13.2 % 12.0-15.5 PLT (test code = 777-3) See_Comment [Au tomated message] The system which [employer] nerated this result transmit gulshan reference range: 166 - 35 8 10*3/?L. The reference range was not used to interpret th is result as normal/abnormal . MPV (test code = 03358-0) 10.1 fL 9.5-12.9 NRBC/100 WBC (test code = See_Comment [ Automated message] The 1011644665) system which [employer] nerated this result transmit gulshan reference range: 0.0 - 10 .0 /100 WBCs. The reference r luca was not used to interpr et this result as normal/abnor mal. NRBC x10^3 (test code = <0.01 See_Comment [Au tomated message] The 3973060203) system which [employer] nerated this result transmit gulshan reference range: 10*3/?L. The reference range was not u sed to interpret this result as normal/abnormal . GRAN MAT (NEUT) % (test code 47.9 % = 770-8) IMM GRAN % (test code = 0.30 % 4075000372) LYMPH % (test code = 736-9) 39.0 % MONO % (test code = 5905-5) 9.8 % EOS % (test code = 713-8) 2.5 % BASO % (test code = 706-2) 0.5 % GRAN MAT x10^3(ANC) (test 1.76 10*3/uL 1.88-7.09 L code = 8127645324) IMM GRAN x10^3 (test code = <0.03 0.00-0.06 8202547403) LYMPH x10^3 (test code = 1.43 10*3/uL 1.32-3.29 731-0) MONO x10^3 (test code = 0.36 10*3/uL 0.33-0.92 742-7) EOS x10^3 (test code = 0.09 10*3/uL 0.03-0.39 711-2) BASO x10^3 (test code = <0.03 0.01-0.07 704-7) Lab Interpretation (test Abnormal code = 40935-7) [facility]. METABOLIC PANEL (96310)2021-09-08 10:01:57 Test Item Value Reference Range Interpretation Comments NA (test code = 137 mmol/L 135-145 1474316843) K (test code = 4.4 mmol/L 3.5-5.0 1461704849) CL (test code = 105 mmol/L 98-108 3967309667) CO2 TOTAL (test code = 27 mmol/L 23-31 5405295506) AGAP (test code = 2-16 0860732928) BUN (test code = 16 mg/dL 7-23 2281822015) GLUCOSE (test code = 91 mg/dL 70-110 5730828217) CREATININE (test code = 0.80 mg/dL 0.50-1.04 7751873621) TOTAL BILI (test code = 1.3 mg/dL 0.1-1.1 H 6842053768) CALCIUM (test code = 8.9 mg/dL 8.6-10.6 6769808862) T PROTEIN (test code = 7.4 g/dL 6.3-8.2 0520551642) ALBUMIN (test code = 4.0 g/dL 3.5-5.0 2243350360) ALK PHOS (test code = 422 U/L 34-122 H 7645222258) ALTv (test code = 64 U/L 5-35 H 1742-6) AST(SGOT) (test code = 53 U/L 13-40 H 4877651897) eGFR (test code = mL/min/1.73m2 3644207440) KIM (test code = KIM) Association of [...] tests). Lab Interpretation Abnormal (test code = 80826-0) [facility] 10:01:57 Test Item Value Reference Range Interpretation Comments MAGNESIUM (test code = 1397734904) 2.1 mg/dL 1.7-2.4 Lab Interpretation (test code = Normal 73022-6) [facility] QUANTITATIVE [id number] 14:36:03 Test Item Value Reference Range Interpretation Comments Jocelyn-Quiros Plasma Virus, Quant. Source (test code = 41568-7) Jocelyn-Quiros <390 cpy/mL Virus, Quant. Copy/mL (test code = 02108-0) Jocelyn-Quiros <2.6 log INTERPRETIVE Virus, Quant. Log INFORMATIO N: Jocelyn (test code = [place] [address]-7) Quantitative PC RThe quantitative ra nge of this assay is 2 .6-7.6 log copies/mL (390-39,000,000 copies/mL).A ne gative result (less th an 2.6 log copies/mL o r less than 390 copies /mL) does not rule <trunc ated> Jocelyn-Quiros Not Detected Not Detected NOT DETECTED - A Virus, Quant. negative resul t does not Interp (test code rule out t he presence of = 5005-4) PCR inhibitors in the patient specime n or assay specific nucleic acid in concent rations below the level of detection by th e assay.Performed by XTRM,50 0 [facility] <truncated> [facility]2022-[facility]-26 08:53:00 Test Item Value Reference Range Interpretation Comments MAGNESIUM (test code = 5263433492) 1.6 mg/dL 1.7-2.4 L Lab Interpretation (test code = Abnormal 57625-6) [facility] METABOLIC PANEL (NA, K, CL, CO2, GLUCOSE, BUN, CREATININE, CA)2021-09-07 08:53:00 Test Item Value Reference Range Interpretation Comments NA (test code = 136 mmol/L 135-145 6446097350) K (test code = 4.6 mmol/L 3.5-5.0 8829512861) CL (test code = 103 mmol/L 98-108 0285250609) CO2 TOTAL (test code 26 mmol/L 23-31 = 9374635654) AGAP (test code = 2-16 5705379570) BUN (test code = 14 mg/dL 7-23 8770735641) GLUCOSE (test code = 100 mg/dL 70-110 9793619550) CREATININE (test code 0.64 mg/dL 0.50-1.04 = 9967605514) CALCIUM (test code = 8.9 mg/dL 8.6-10.6 0556979560) eGFR (test code = mL/min/1.73m2 2108489240) KIM (test code = KIM) Association of [...] or urine or abnormalities in imaging tests). [facility] FUN[facility] PANEL (59011) (ALB,T.PRO,BILI T,BU/BC,ALT,AST,ALK PHOS)2021-09-07 08:53:00 Test Item Value Reference Range Interpretation Comments TOTAL BILI (test code = 5789499156) 1.2 mg/dL 0.1-1.1 H BILI UNCON (test code = 7079322449) 0.3 mg/dL 0.1-1.1 BILI CONJ (test code = 4016727722) 0.0 mg/dL 0.0-0.3 T PROTEIN (test code = 1161343431) 7.2 g/dL 6.3-8.2 ALBUMIN (test code = 5688805546) 3.9 g/dL 3.5-5.0 ALK PHOS (test code = 8450986751) 449 U/L 34-122 H ALTv (test code = 1742-6) 75 U/L 5-35 H AST(SGOT) (test code = 9839411129) 55 U/L 13-40 H Lab Interpretation (test code = Abnormal 10092-3) [facility] WITH [id number] 08:24:58 Test Item Value Reference Range Interpretation Comments [...] 11.6-15.0 L 718-7) HCT (test code = 30.8 % 35.7-45.2 L 4544-3) MCV (test code = 93.1 fL 80.6-95.5 787-2) MCH (test code = 30.8 pg 25.9-32.8 785-6) MCHC (test code = 33.1 g/dL 31.6-35.1 786-4) RDW-SD (test code = 45.1 fL 39.0-49.9 12479-3) RDW-CV (test code = 13.2 % 12.0-15.5 788-0) PLT (test code = See_Comment L [Automated 777-3) message] The sy stem which generated this result transmitted reference range : 166 - 358 10*3/ ?L. The reference r luca was not used to interpret this result as normal/abnormal . MPV (test code = 10.0 fL 9.5-12.9 67674-4) NRBC/100 WBC (test See_Comment [Automat ed code = 6331625916) message] The system which generated this result transmitted reference range : 0.0 - 10.0 /100 WBCs. The refer ence range was not u sed to interpret th is result as normal/abnormal . NRBC x10^3 (test code <0.01 See_Comment [Auto mated = 9666852975) message] The s ystem which generated this result transmitted reference range : 10*3/?L. The reference range was not used to interpret this result as normal/abnormal . GRAN MAT (NEUT) % 41.2 % (test code = 770-8) IMM GRAN % (test code 0.30 % = 3020266185) LYMPH % (test code = 45.5 % 736-9) MONO % (test code = 10.0 % 5905-5) EOS % (test code = 2.3 % 713-8) BASO % (test code = 0.7 % 706-2) GRAN MAT x10^3(ANC) 1.24 10*3/uL 1.88-7.09 L (test code = 1656315310) IMM GRAN x10^3 (test <0.03 0.00-0.06 code = 1662393134) LYMPH x10^3 (test code 1.37 10*3/uL 1.32-3.29 = 731-0) MONO x10^3 (test code 0.30 10*3/uL 0.33-0.92 L = 742-7) EOS x10^3 (test code = 0.07 10*3/uL 0.03-0.39 711-2) BASO x10^3 (test code <0.03 0.01-0.07 = 704-7) Lab Interpretation Abnormal (test code = 27877-3) [facility]ANTI-NUCLEAR ANTIBODY-PATHOLOGIST [id number] 17:03:59ANA - Pathologist InterpretationANA HEp-2 IIFA Pathologist Interpretation Report Patient Name: Radha Aleman? ?Antinuclear Antibody (LESLY) Test (Anti-Cell Antibodies Test) Indirect I mmunofluorescence Assay on HEp-2 Cells Screening titer: 1:80 (adults, > 18 years old), 1:40 (pediatrics, <= 18 years old)?Result: The antinuclear antibody (LESLY) test is positive, demonstrating the AC-4/5-Speckled Pattern with a titer of >=1:1280. Additionally, prominent cytoplasmic staining reactions are observed up to this maximum titer. A titer greater than or equal to 1:160 is generally considered to be clinically significant. ? Remarks: The AC-4/5-Speckled Pattern is associated with autoantibodies to numerous antigens, including (but not limited) to SS-A/Ro, SS-B/La, U1RNP, Sm, and RNApolymerase III. Clinical associations include - but are not limited to - Sjogren's syndrome, systemic lupus erythematosus (SLE), systemic sclerosis, mixed connective tissue disease, undifferentiated connective tissue disease, dermatomyositis, systemic sclerosis-autoimmune myopathy overlap syndrome, aut oimmune hepatitis, and patients with thyroid disease. Cytoplasmic staining patterns observed on the indirect immunofluorescence assay may be suggestive of a wide range of autoantibodies, including those targeted against mitochondrial antigens (AMA), smooth muscle antigens (ASMA), actin, alpha-actinin,GW182, ribosomal P proteins, Meka-1, etc. Clinical associations include HCV, autoimmune hepatitis, systemic autoimmune rheumatic disease such as systemic lupus erythematosus, Raynaud's phenomenon, and primary biliary cirrhosis (among other conditions). ? For more information (including clinical associations), the International Consensus on LESLY Patterns (ICAP) guidelines can be found at www.anapatterns.org.?A diagnosis cannot be based exclusively on LESLY detection and/or pattern and thus should be made via the integration of patient history, physical exam findings, and other diagnostic tests as clinically indicated. ? Marnie Mayorga MD ?09/06/2021 ?12:02 PM ?[facility] SERVICES[facility] MET[facility]OLIC [facility] (NA, K, CL, CO2, GLUCOSE, BUN, CREATININE, CA)2021-09-06 10:30:13 Test Item Value Reference Range Interpretation Comments NA (test code = 137 mmol/L 135-145 6100203247) K (test code = 4.5 mmol/L 3.5-5.0 Slight hemoly sis 6715813613) CL (test code = 105 mmol/L 98-108 9894366696) CO2 TOTAL (test 27 mmol/L 23-31 code = 0780761720) AGAP (test code = 2-16 2952852139) BUN (test code = 15 mg/dL 7-23 Slight hemo lysis 9784200370) GLUCOSE (test code 102 mg/dL 70-110 = 2868818609) CREATININE (test 0.70 mg/dL 0.50-1.04 code = 6651925618) CALCIUM (test code 8.7 mg/dL 8.6-10.6 = 0700805231) eGFR (test code = mL/min/1.73m2 8125871496) KIM (test code = Association of KIM) [...] or urine or abnormalities in imaging tests). [facility] FUN[facility] PANEL (45879) (ALB,T.PRO,BILI T,BU/BC,ALT,AST,ALK PHOS)2021-09-06 10:30:13 Test Item Value Reference Range Interpretation Comments TOTAL BILI (test code = 5586889584) 1.3 mg/dL 0.1-1.1 H BILI UNCON (test code = 1574006681) 0.3 mg/dL 0.1-1.1 BILI CONJ (test code = 6001419880) 0.0 mg/dL 0.0-0.3 T PROTEIN (test code = 6792547062) 7.2 g/dL 6.3-8.2 ALBUMIN (test code = 7223146626) 3.9 g/dL 3.5-5.0 ALK PHOS (test code = 8806119007) 447 U/L 34-122 H ALTv (test code = 1742-6) 89 U/L 5-35 H AST(SGOT) (test code = 6706125201) 69 U/L 13-40 H Lab Interpretation (test code = Abnormal 17572-9) [facility]2022-[facility]-25 10:30:13 Test Item Value Reference Range Interpretation Comments MAGNESIUM (test code = 4807934474) 1.6 mg/dL 1.7-2.4 L Lab Interpretation (test code = Abnormal 32732-4) [facility]I-NUCLEAR ANTIBODY [id number] 01:05:07 Test Item Value Reference Range Interpretation Comments LESLY Titer by IFA >=1:1280 (test code = 1229304222) LESLY Pattern Speckled Cytoplasmic (test code = staining reacti ons 9458734920) observed. KIM (test code = Anti-nuclear KIM) antibodies are seen in a variety of autoimmune diseases and may also be seen in low titers in otherwise normal individuals without evidence of autoimmune disease. In general, a titer greater than or equal to 1:160 is considered significant. For further information, contact the appropriate Specialist. For additional LESLY tests, refer to the Laboratory Test Directory. The specimen will be held for 7 days. [facility]SM[facility] MUSCLE AB,IGG [id number] 21:57:55 Test Item Value Reference Range Interpretation Comments F-ACTIN (SMOOTH See_Comment If F-Actin (Smooth Muscle) MUSCLE) AB, Antibody, IgG i s negative, IGG(BEAKER) (test the Smooth Muscle Antibody code = 25472-8) titer by IFA is not performed.REFER ENCE INTERVAL: F-Act in (Smooth Muscle) Antibod y, [...] for A IH is strong.Performe d By: [employer] [address] [place], [place] [address]Wgwgjzmfjg Director: Praveena Mantilla MD [Automated mess age] The system which ge nerated this result transmit gulshan reference range : 0 - 19 Units. The refe rence range was not used to interpret this result as normal/abnormal . [facility] HospitalMITOCHONDRIAL M2 AB, [id number] 21:57:54 Test Item Value Reference Range Interpretation Comments AMA (test code = See_Comment H REFERENCE I NTERVAL: 74460-8) Mitochondrial ( M2) Antibody, IgG ? ?20.0 [...] does not rule out PBC.Perform ed By: [facility] [place], [place] [address]Rirmtujonu Director: Praveena Mantilla MD [Aut omated message] The sy stem which generated this result transmit gulshan reference range : 0.0 - 24.9 Units. The reference range was not used to int erpret this result as normal/abnormal . Lab Interpretation Abnormal (test code = 79437-1) [facility]MAG[facility]2022-05-24 09:23:46 Test Item Value Reference Range Interpretation Comments MAGNESIUM (test code = 1792859861) 1.9 mg/dL 1.7-2.4 Lab Interpretation (test code = Normal 18520-7) [facility] (NA, K, CL, CO2, GLUCOSE, BUN, CREATININE, [place])2021-09-05 09:23:46 Test Item Value Reference Range Interpretation Comments NA (test code = 140 mmol/L 135-145 0750688933) K (test code = 4.5 mmol/L 3.5-5.0 6501473164) CL (test code = 106 mmol/L 98-108 9437878094) CO2 TOTAL (test code 27 mmol/L 23-31 = 8671064832) AGAP (test code = 2-16 4309897084) BUN (test code = 16 mg/dL 7-23 8727051666) GLUCOSE (test code = 89 mg/dL 70-110 5218034272) CREATININE (test code 0.67 mg/dL 0.50-1.04 = 3165959732) CALCIUM (test code = 9.0 mg/dL 8.6-10.6 6399205102) eGFR (test code = mL/min/1.73m2 3099986075) KIM (test code = KIM) Association of [...] or urine or abnormalities in imaging tests). [facility]89[facility] (ALB,T.PRO,BILI T,BU/BC,ALT,AST,ALK PHOS)2021-09-05 09:23:46 Test Item Value Reference Range Interpretation Comments TOTAL BILI (test code = 7699319282) 1.5 mg/dL 0.1-1.1 H BILI UNCON (test code = 9270206941) 0.3 mg/dL 0.1-1.1 BILI CONJ (test code = 0539375659) 0.0 mg/dL 0.0-0.3 T PROTEIN (test code = 7499614912) 7.1 g/dL 6.3-8.2 ALBUMIN (test code = 9731384241) 3.9 g/dL 3.5-5.0 ALK PHOS (test code = 0335819770) 558 U/L 34-122 H ALTv (test code = 1742-6) 112 U/L 5-35 H AST(SGOT) (test code = 9845081501) 82 U/L 13-40 H Lab Interpretation (test code = Abnormal 77938-3) [facility] WITH [id number] 09:09:07 Test Item Value Reference Range Interpretation Comments [...] . HGB (test code = 10.1 g/dL 11.6-15.0 L 718-7) HCT (test code = 31.0 % 35.7-45.2 L 4544-3) MCV (test code = 93.9 fL 80.6-95.5 787-2) MCH (test code = 30.6 pg 25.9-32.8 785-6) MCHC (test code = 32.6 g/dL 31.6-35.1 786-4) RDW-SD (test code = 45.7 fL 39.0-49.9 17446-1) RDW-CV (test code = 13.2 % 12.0-15.5 788-0) PLT (test code = See_Comment L [Automated 777-3) message] The sy stem which generated this result transmitted reference range : 166 - 358 10*3/ ?L. The reference r luca was not used to interpret this result as normal/abnormal . MPV (test code = 9.7 fL 9.5-12.9 05088-7) NRBC/100 WBC (test See_Comment [Automat ed code = 4029685304) message] The system which generated this result transmitted reference range : 0.0 - 10.0 /100 WBCs. The refer ence range was not u sed to interpret th is result as normal/abnormal . NRBC x10^3 (test code <0.01 See_Comment [Auto mated = 9757120702) message] The s ystem which generated this result transmitted reference range : 10*3/?L. The reference range was not used to interpret this result as normal/abnormal . GRAN MAT (NEUT) % 43.5 % (test code = 770-8) IMM GRAN % (test code 0.30 % = 6812549239) LYMPH % (test code = 39.6 % 736-9) MONO % (test code = 12.8 % 5905-5) EOS % (test code = 3.5 % 713-8) BASO % (test code = 0.3 % 706-2) GRAN MAT x10^3(ANC) 1.25 10*3/uL 1.88-7.09 L (test code = 6735914194) IMM GRAN x10^3 (test <0.03 0.00-0.06 code = 8588199086) LYMPH x10^3 (test code 1.14 10*3/uL 1.32-3.29 L = 731-0) MONO x10^3 (test code 0.37 10*3/uL 0.33-0.92 = 742-7) EOS x10^3 (test code = 0.10 10*3/uL 0.03-0.39 711-2) BASO x10^3 (test code <0.03 0.01-0.07 = 704-7) Lab Interpretation Abnormal (test code = 76078-5) [facility] [id number] 22:01:12 Test Item Value Reference Range Interpretation Comments LESLY (test code = Cytoplasmic staining Negative A 5817853309) observed KIM (test code = KIM) Negative: ?No Anti-Nuclear Antibodies detected by IFA. Positive: ?LESLY IFA screen performed with a 1:80 dilution in adults and a 1:40 dilution in pediatrics. ?A titer is performed and reported separately when the LESLY is "Positive" or when "Cytoplasmic staining is observed." Negative: ?No Anti-Nuclear Antibodies detected by IFA. Positive: ?LESLY IFA screen performed with a 1:80 dilution in adults and a 1:40 dilution in pediatrics. ?A titer is performed and reported separately when the LESLY is "Positive" or when "Cytoplasmic staining is observed." Lab Interpretation (test Abnormal code = 25673-0) [facility] HospitalCMV BY [id number] 17:58:08 Test Item Value Reference Range Interpretation Comments Specimen Tested Plasma (test code = 6010737089) CMV PCR - log <2.5 See_Comment [Automated IU/mL (test message] The code = 85918-7) system which generated this result transmitted reference range : <2.5 log IU/mL. The reference range was not used to interpr et this result as normal/abnormal . CMV PCR - IU/mL <300 See_Comment [Automated (test code = message] The 29790-3) system which generated this result transmitted reference range : <300 IU/mL. The reference range was not used to interpret this result as normal/abnormal . CMV PCR - log <2.7 See_Comment [Automated copies/mL (test message] The code = 73925-2) system which generated this result transmitted reference range : <2.7 log copies/mL. The reference range was not used to interpret this result as normal/abnormal . CMV PCR - <516 See_Comment [Automated copies/mL (test message] The code = 59940-6) system which generated this result transmitted reference range : <516 copies/mL. The reference range was not used to interpr et this result as normal/abnormal . KIM (test code Test Information: = KIM) Cytomegalovirus (CMV) DNA, Quantitation. The quantitative range of this assay is 2.5 - 6.5 log IU/mL (300 - 3,000,000 IU/mL) ?or 2.7 - 6.7 log copies/mL (516 - 5,160,000 copies/mL). ?One IU/mL of CMV DNA is approximately 1.72 copies/mL. ?A negative result (less than 2.5 log IU/mL or less than 300 IU/mL) does not rule out the presence of PCR inhibitors in the patient specimen or CMV DNA concentrations below the level of detection by the assay. Inhibition may also lead to underestimation of viral quantitation. ?The limit of quantification for this DNA assay is 2.5 log IU/mL (300 IU/mL) or 2.7 log copies/mL (516 copies/mL). ?If the assay DID NOT DETECT the virus, the test result will be reported as "<2.5 log IU/mL (<300 IU/mL)" and "<2.7 log copies/mL (<516 copies/mL)." ?If the assay DETECTED the presence of the virus but was not able to accurately quantify the number of copies, the test result will be reported as "Detected, not quantifiable." Indeterminate: ?Unable to generate a valid test result on this specimen. ?Please submit a new specimen for repeat testing if clinically indicated. This is a laboratory-developed test using a geophysical party chief labeled ASR (Analyte Specific Reagent) as the reagent providing the specificity of the assay. ?This test was developed and its performance characteristics determined by [facility]. It has not been cleared or approved by the U.S. Food and Drug Administration; however, the FDA has determined that such clearance or approval is not necessary. This test is used for clinical purposes. It should not be regarded as investigational or for research. This laboratory is certified under the Clinical Laboratory Improvement Amendments of 1988 (CLIA-88) as qualified to perform high complexity clinical laboratory testing. [facility] WITH [id number] 10:05:58 Test Item Value Reference Range Interpretation Comments [...] as normal/abnormal . HGB (test code = 9.9 g/dL 11.6-15.0 L 718-7) HCT (test code = 30.6 % 35.7-45.2 L 4544-3) MCV (test code = 93.6 fL 80.6-95.5 787-2) MCH (test code = 30.3 pg 25.9-32.8 785-6) MCHC (test code = 32.4 g/dL 31.6-35.1 786-4) RDW-SD (test code = 45.3 fL 39.0-49.9 78453-0) RDW-CV (test code = 13.1 % 12.0-15.5 788-0) PLT (test code = See_Comment L [Automated 777-3) message] The sy stem which generated this result transmitted reference range : 166 - 358 10*3/ ?L. The reference r luca was not used to interpret this result as normal/abnormal . MPV (test code = 9.8 fL 9.5-12.9 22807-7) NRBC/100 WBC (test See_Comment [Automat ed code = 5110634716) message] The system which generated this result transmitted reference range : 0.0 - 10.0 /100 WBCs. The refer ence range was not u sed to interpret th is result as normal/abnormal . NRBC x10^3 (test code <0.01 See_Comment [Auto mated = 8082450359) message] The s ystem which generated this result transmitted reference range : 10*3/?L. The reference range was not used to interpret this result as normal/abnormal . GRAN MAT (NEUT) % 46.2 % (test code = 770-8) IMM GRAN % (test code 0.30 % = 7433855792) LYMPH % (test code = 36.6 % 736-9) MONO % (test code = 14.2 % 5905-5) EOS % (test code = 2.4 % 713-8) BASO % (test code = 0.3 % 706-2) GRAN MAT x10^3(ANC) 1.36 10*3/uL 1.88-7.09 L (test code = 2357227257) IMM GRAN x10^3 (test <0.03 0.00-0.06 code = 4563463041) LYMPH x10^3 (test code 1.08 10*3/uL 1.32-3.29 L = 731-0) MONO x10^3 (test code 0.42 10*3/uL 0.33-0.92 = 742-7) EOS x10^3 (test code = 0.07 10*3/uL 0.03-0.39 711-2) BASO x10^3 (test code <0.03 0.01-0.07 = 704-7) Lab Interpretation Abnormal (test code = 44361-4) [facility]MAGN[facility]UM2022-[facility]-23 09:55:52 Test Item Value Reference Range Interpretation Comments MAGNESIUM (test code = 6306923345) 2.0 mg/dL 1.7-2.4 Lab Interpretation (test code = Normal 30316-6) [facility] (NA, K, CL, CO2, GLUCOSE, BUN, CREATININE, CA)2021-09-04 09:55:52 Test Item Value Reference Range Interpretation Comments NA (test code = 140 mmol/L 135-145 7678919596) K (test code = 4.2 mmol/L 3.5-5.0 9721520443) CL (test code = 107 mmol/L 98-108 6395933892) CO2 TOTAL (test code 26 mmol/L 23-31 = 8154636211) AGAP (test code = 2-16 3920234412) BUN (test code = 20 mg/dL 7-23 4037882151) GLUCOSE (test code = 106 mg/dL 70-110 6310501565) CREATININE (test code 0.86 mg/dL 0.50-1.04 = 1875444077) CALCIUM (test code = 8.8 mg/dL 8.6-10.6 0600148073) eGFR (test code = mL/min/1.73m2 2915058083) KIM (test code = KIM) Association of [...] or urine or abnormalities in imaging tests). [facility] (00673) (ALB,T.PRO,BILI T,BU/BC,ALT,AST,ALK PHOS)2021-09-04 09:55:52 Test Item Value Reference Range Interpretation Comments TOTAL BILI (test code = 0399432512) 1.8 mg/dL 0.1-1.1 H BILI UNCON (test code = 8917449709) 0.6 mg/dL 0.1-1.1 BILI CONJ (test code = 9314236694) 0.0 mg/dL 0.0-0.3 T PROTEIN (test code = 2576890706) 7.1 g/dL 6.3-8.2 ALBUMIN (test code = 7703691193) 3.9 g/dL 3.5-5.0 ALK PHOS (test code = 3992160136) 624 U/L 34-122 H ALTv (test code = 1742-6) 149 U/L 5-35 H AST(SGOT) (test code = 2679191510) 120 U/L 13-40 H Lab Interpretation (test code = Abnormal 35773-7) [facility] WITH [id number] 10:18:25 Test Item Value Reference Range Interpretation Comments [...] . HGB (test code = 10.3 g/dL 11.6-15.0 L 718-7) HCT (test code = 31.5 % 35.7-45.2 L 4544-3) MCV (test code = 93.5 fL 80.6-95.5 787-2) MCH (test code = 30.6 pg 25.9-32.8 785-6) MCHC (test code = 32.7 g/dL 31.6-35.1 786-4) RDW-SD (test code = 46.3 fL 39.0-49.9 31906-2) RDW-CV (test code = 13.5 % 12.0-15.5 788-0) PLT (test code = See_Comment L [Automated 777-3) message] The sy stem which generated this result transmitted reference range : 166 - 358 10*3/ ?L. The reference r luca was not used to interpret this result as normal/abnormal . MPV (test code = 9.5 fL 9.5-12.9 40102-3) NRBC/100 WBC (test See_Comment [Automat ed code = 0953206022) message] The system which generated this result transmitted reference range : 0.0 - 10.0 /100 WBCs. The refer ence range was not u sed to interpret th is result as normal/abnormal . NRBC x10^3 (test code <0.01 See_Comment [Auto mated = 0786061857) message] The s ystem which generated this result transmitted reference range : 10*3/?L. The reference range was not used to interpret this result as normal/abnormal . GRAN MAT (NEUT) % 49.9 % (test code = 770-8) IMM GRAN % (test code 0.00 % = 7467983953) LYMPH % (test code = 33.0 % 736-9) MONO % (test code = 14.2 % 5905-5) EOS % (test code = 2.6 % 713-8) BASO % (test code = 0.3 % 706-2) GRAN MAT x10^3(ANC) 1.51 10*3/uL 1.88-7.09 L (test code = 3512440875) IMM GRAN x10^3 (test <0.03 0.00-0.06 code = 4192973294) LYMPH x10^3 (test code 1.00 10*3/uL 1.32-3.29 L = 731-0) MONO x10^3 (test code 0.43 10*3/uL 0.33-0.92 = 742-7) EOS x10^3 (test code = 0.08 10*3/uL 0.03-0.39 711-2) BASO x10^3 (test code <0.03 0.01-0.07 = 704-7) Lab Interpretation Abnormal (test code = 37441-5) [facility]. METABOLIC PANEL (90546)2021-09-03 10:04:46 Test Item Value Reference Range Interpretation Comments NA (test code = 140 mmol/L 135-145 9472370571) K (test code = 4.5 mmol/L 3.5-5.0 7910021129) CL (test code = 107 mmol/L 98-108 0802133217) CO2 TOTAL (test code = 22 mmol/L 23-31 L 0048183640) AGAP (test code = 2-16 9562031524) BUN (test code = 20 mg/dL 7-23 0686884077) GLUCOSE (test code = 84 mg/dL 70-110 5358571083) CREATININE (test code = 0.92 mg/dL 0.50-1.04 9908546394) TOTAL BILI (test code = 2.2 mg/dL 0.1-1.1 H 9698259335) CALCIUM (test code = 8.9 mg/dL 8.6-10.6 1225969525) T PROTEIN (test code = 7.4 g/dL 6.3-8.2 0022225465) ALBUMIN (test code = 4.1 g/dL 3.5-5.0 6873288929) ALK PHOS (test code = 658 U/L 34-122 H 3315246414) ALTv (test code = 169 U/L 5-35 H 1742-6) AST(SGOT) (test code = 163 U/L 13-40 H 1064388653) eGFR (test code = mL/min/1.73m2 1787581985) KIM (test code = KIM) Association of [...] tests). Lab Interpretation Abnormal (test code = 79215-3) [facility]2022-05-22 10:04:46 Test Item Value Reference Range Interpretation Comments MAGNESIUM (test code = 4081405779) 2.0 mg/dL 1.7-2.4 Lab Interpretation (test code = Normal 57383-8) [facility] HospitalALPHA 1 [id number] 19:24:55 Test Item Value Reference Range Interpretation Comments Anti-Trypsin (test code = 174 mg/dL 83-199 9699503119) Lab Interpretation (test code = Normal 15278-8) [facility] HospitalCERULOPLASMIN2022-05-21 19:24:50 Test Item Value Reference Range Interpretation Comments CERULO (test code = 9368090207) 48 mg/dL 25-63 Lab Interpretation (test code = Normal 59117-2) [facility] HospitalIMMUNOGLOBULIN [id number] 19:24:45 Test Item Value Reference Range Interpretation Comments IgG (test code = 6376195258) 1210 mg/dL 636-1600 Lab Interpretation (test code = Normal 28893-9) [facility] HospitalHAV ANTIBODY (IGG AND IGM)2021-09-02 18:39:52 Test Item Value Reference Range Interpretation Comments HAV Total (test code Positive = 1982822947) HAVT Semi-Quantitative (test code = 2434833681) KIM (test code = KIM) Indicates past or present infection with HAV or exposure to HAV due to vaccination. [facility] HospitalFERRITIN [id number] 18:15:24 Test Item Value Reference Range Interpretation Comments FERRITIN (test code = 63.8 ng/mL 11.0-264.0 6151544011) KIM (test code = KIM) Biotin has been reported to cause a negative bias, interpret results relative to patient's use of biotin. Lab Interpretation (test Normal code = 86483-1) [facility] HospitalHEPATITIS B SURFACE [id number] 18:11:43 Test Item Value Reference Range Interpretation Comments HBsAg Semi-Quantitative (test code = Negative Negative 5195-3) [facility]HE[facility] B SURFACE [id number] 17:43:23 Test Item Value Reference Range Interpretation Comments HBsAB (test code = Negative 0710434248) HBsAb mIU/mL Semi-Quantitative (test code = 9329344221) KIM (test code = Interpretation: KIM) ?Hepatitis B Surface Antibody ? Negative - Patient is considered to be not immune to infection with HBV. ? ? Positive - Anti-HBs detected at greater than or equal to 12 mIU/mL. ?Patient is considered to be immune to infection with HBV. ? [facility] HospitalHBC ANTIBODY (IGM & IGG)2021-09-02 17:43:23 Test Item Value Reference Range Interpretation Comments HBC (test code = 1793958106) Negative HBC Semi-Quantitative (test code = 4869041233) [facility] HospitalHCV [id number] 17:43:23 Test Item Value Reference Range Interpretation Comments HCV Ab (test code = 25053-6) Negative HCV Semi-Quantitative (test code = 39358-3) [facility]MAG[facility]UM2022-05-21 17:40:42 Test Item Value Reference Range Interpretation Comments MAGNESIUM (test code = 3616347998) 1.9 mg/dL 1.7-2.4 Lab Interpretation (test code = Normal 78926-2) [facility] HospitalPHOSPHORUS2022-05-21 17:40:42 Test Item Value Reference Range Interpretation Comments PHOSPHORUS (test code = 2148772236) 4.0 mg/dL 2.5-5.0 Lab Interpretation (test code = Normal 48397-7) [facility] HospitalCOMP. METABOLIC PANEL (16255)2021-09-02 17:40:42 Test Item Value Reference Range Interpretation Comments NA (test code = 138 mmol/L 135-145 6886593601) K (test code = 4.2 mmol/L 3.5-5.0 6290520464) CL (test code = 106 mmol/L 98-108 9345344474) CO2 TOTAL (test code = 24 mmol/L 23-31 3341576277) AGAP (test code = 2-16 0478709234) BUN (test code = 14 mg/dL 7-23 6707173144) GLUCOSE (test code = 88 mg/dL 70-110 2093670429) CREATININE (test code = 0.60 mg/dL 0.50-1.04 1277233531) TOTAL BILI (test code = 2.1 mg/dL 0.1-1.1 H 0596288518) CALCIUM (test code = 8.8 mg/dL 8.6-10.6 8328737828) T PROTEIN (test code = 7.3 g/dL 6.3-8.2 7556066487) ALBUMIN (test code = 4.0 g/dL 3.5-5.0 8013842100) ALK PHOS (test code = 659 U/L 34-122 H 1333713597) ALTv (test code = 183 U/L 5-35 H 1742-6) AST(SGOT) (test code = 167 U/L 13-40 H 9350752414) eGFR (test code = mL/min/1.73m2 0152608763) KIM (test code = KIM) Association of [...] tests). Lab Interpretation Abnormal (test code = 19875-5) [facility] HospitalACETAMINOPHEN2022-05-21 16:56:49 Test Item Value Reference Range Interpretation Comments ACETAMINOP (test code = <10.0 10.0-30.0 L 8829862111) KIM (test code = KIM) Toxic: Greater than 200 ug/mL @ 4 hour post ingestion or greater than 50 ug/mL @ 12 hour post ingestion Lab Interpretation (test Abnormal code = 04082-0) [facility] WITH [id number] 16:41:43 Test Item Value Reference Range Interpretation Comments WBC (test code = See_Comment L [Automated 2790-2) message] The sy stem which generated this result transmitted reference range : 4.30 - 11.10 10*3/?L. The reference range was not used to interpret this result as normal/abnormal . RBC (test code = See_Comment L [Automated 299-8) message] The sy stem which generated this result transmitted reference range : 3.93 - 5.25 10*6/?L. The reference range was not used to interpret this result as normal/abnormal . HGB (test code = 10.4 g/dL 11.6-15.0 L 718-7) HCT (test code = 32.1 % 35.7-45.2 L 4544-3) MCV (test code = 93.0 fL 80.6-95.5 787-2) MCH (test code = 30.1 pg 25.9-32.8 785-6) MCHC (test code = 32.4 g/dL 31.6-35.1 786-4) RDW-SD (test code = 47.5 fL 39.0-49.9 33023-2) RDW-CV (test code = 13.9 % 12.0-15.5 788-0) PLT (test code = See_Comment L [Automated 777-3) message] The sy stem which generated this result transmitted reference range : 166 - 358 10*3/ ?L. The reference r luca was not used to interpret this result as normal/abnormal . MPV (test code = 9.9 fL 9.5-12.9 30984-5) NRBC/100 WBC (test See_Comment [Automat ed code = 2259471689) message] The system which generated this result transmitted reference range : 0.0 - 10.0 /100 WBCs. The refer ence range was not u sed to interpret th is result as normal/abnormal . NRBC x10^3 (test code <0.01 See_Comment [Auto mated = 8680426212) message] The s ystem which generated this result transmitted reference range : 10*3/?L. The reference range was not used to interpret this result as normal/abnormal . GRAN MAT (NEUT) % 47.4 % (test code = 770-8) IMM GRAN % (test code 0.30 % = 7975338214) LYMPH % (test code = 37.4 % 736-9) MONO % (test code = 12.1 % 5905-5) EOS % (test code = 2.5 % 713-8) BASO % (test code = 0.3 % 706-2) GRAN MAT x10^3(ANC) 1.52 10*3/uL 1.88-7.09 L (test code = 4208277247) IMM GRAN x10^3 (test <0.03 0.00-0.06 code = 2772990079) LYMPH x10^3 (test code 1.20 10*3/uL 1.32-3.29 L = 731-0) MONO x10^3 (test code 0.39 10*3/uL 0.33-0.92 = 742-7) EOS x10^3 (test code = 0.08 10*3/uL 0.03-0.39 711-2) BASO x10^3 (test code <0.03 0.01-0.07 = 704-7) Lab Interpretation Abnormal (test code = 34564-7) [facility] HospitalProthrombin Time (PTT) / [id number] 15:58:16 Test Item Value Reference Range Interpretation Comments [...] tions. Lab Interpretation (test Normal code = 04408-6) [facility] HospitalTROPONIN [id number] 19:18:37 Test Item Value Reference Interpretation Comments Range TROPONIN I (test 0.004 ng/mL See_Comment [Automated code = 4058501816) message] The system which generated this result [...] biotin. Lab Interpretation Normal (test code = 92932-0) [facility] HospitalCOMP. METABOLIC PANEL (05810)2021-09-01 19:07:17 Test Item Value Reference Range Interpretation Comments NA (test code = 139 mmol/L 135-145 5790469662) K (test code = 4.5 mmol/L 3.5-5.0 6848227012) CL (test code = 104 mmol/L 98-108 1627941703) CO2 TOTAL (test code = 21 mmol/L 23-31 L 0823640541) AGAP (test code = 2-16 0933669582) BUN (test code = 17 mg/dL 7-23 6093713150) GLUCOSE (test code = 90 mg/dL 70-110 8712468169) CREATININE (test code = 0.63 mg/dL 0.50-1.04 1835328909) TOTAL BILI (test code = 1.6 mg/dL 0.1-1.1 H 4715428896) CALCIUM (test code = 9.5 mg/dL 8.6-10.6 6777155169) T PROTEIN (test code = 9.0 g/dL 6.3-8.2 H 4612478504) ALBUMIN (test code = 4.9 g/dL 3.5-5.0 8281027553) ALK PHOS (test code = 820 U/L 34-122 H 1072115369) ALTv (test code = 238 U/L 5-35 H 1742-6) AST(SGOT) (test code = 256 U/L 13-40 H 0361269198) eGFR (test code = mL/min/1.73m2 5980993456) KIM (test code = KIM) Association of [...] tests). Lab Interpretation Abnormal (test code = 81400-4) [facility]MAG[facility]UM2022-05-20 19:07:17 Test Item Value Reference Range Interpretation Comments MAGNESIUM (test code = 0691077813) 1.8 mg/dL 1.7-2.4 Lab Interpretation (test code = Normal 16631-8) [facility] HospitalLIPASE2022-05-20 19:06:57 Test Item Value Reference Range Interpretation Comments LIPASE (test code = 8580234131) 85 U/L 0-220 Lab Interpretation (test code = Normal 02243-2) [facility] WITH [id number] 18:56:38 Test Item Value Reference Range Interpretation Comments WBC (test code = See_Comment [Automated 8490-2) message] The sy stem which generated this result transmitted reference range : 4.30 - 11.10 10*3/?L. The reference range was not used to interpret this result as normal/abnormal . RBC (test code = See_Comment [Automated 599-8) message] The sy stem which generated this result transmitted reference range : 3.93 - 5.25 10*6/?L. The reference range was not used to interpret this result as normal/abnormal . HGB (test code = 12.2 g/dL 11.6-15.0 718-7) HCT (test code = 37.4 % 35.7-45.2 4544-3) MCV (test code = 93.3 fL 80.6-95.5 787-2) MCH (test code = 30.4 pg 25.9-32.8 785-6) MCHC (test code = 32.6 g/dL 31.6-35.1 786-4) RDW-SD (test code = 48.2 fL 39.0-49.9 43287-5) RDW-CV (test code = 14.1 % 12.0-15.5 788-0) PLT (test code = See_Comment [Automated 777-3) message] The sy stem which generated this result transmitted reference range : 166 - 358 10*3/ ?L. The reference r luca was not used to interpret this result as normal/abnormal . MPV (test code = 9.9 fL 9.5-12.9 60142-8) NRBC/100 WBC (test See_Comment [Automat ed code = 1532405613) message] The system which generated this result transmitted reference range : 0.0 - 10.0 /100 WBCs. The refer ence range was not u sed to interpret th is result as normal/abnormal . NRBC x10^3 (test code <0.01 See_Comment [Auto mated = [id number]) message] The s ystem which generated this result transmitted reference range : 10*3/?L. The reference range was not used to interpret this result as normal/abnormal . GRAN MAT (NEUT) % 65.1 % (test code = 770-8) IMM GRAN % (test code 0.40 % = [id number]) LYMPH % (test code = 21.5 % 736-9) MONO % (test code = 11.0 % 5905-5) EOS % (test code = 1.6 % 713-8) BASO % (test code = 0.4 % 706-2) GRAN MAT x10^3(ANC) 3.33 10*3/uL 1.88-7.09 (test code = [id number]) IMM GRAN x10^3 (test <0.03 0.00-0.06 code = 3339017413) LYMPH x10^3 (test code 1.10 10*3/uL 1.32-3.29 L = 731-0) MONO x10^3 (test code 0.56 10*3/uL 0.33-0.92 = 742-7) EOS x10^3 (test code = 0.08 10*3/uL 0.03-0.39 711-2) BASO x10^3 (test code <0.03 0.01-0.07 = 704-7) Lab Interpretation Abnormal (test code = 44273-0) [id number] 16:53:34 Test Item Value Reference Interpretation Comments Range TROPONIN I (test 0.003 ng/mL See_Comment [Automated code = 9043221047) message] The system which generated this result [...] biotin. Lab Interpretation Normal (test code = 75953-6) [facility]OLIC [facility] (31537)2021-08-27 16:42:16 Test Item Value Reference Range Interpretation Comments NA (test code = 139 mmol/L 135-145 5977217926) K (test code = 4.2 mmol/L 3.5-5.0 9934779945) CL (test code = 104 mmol/L 98-108 6882110701) CO2 TOTAL (test code = 23 mmol/L 23-31 1403665746) AGAP (test code = 2-16 6418356532) BUN (test code = 12 mg/dL 7-23 0881071709) GLUCOSE (test code = 91 mg/dL 70-110 4914496896) CREATININE (test code = 0.52 mg/dL 0.50-1.04 8951002649) TOTAL BILI (test code = 1.2 mg/dL 0.1-1.1 H 4156422726) CALCIUM (test code = 9.1 mg/dL 8.6-10.6 4248566213) T PROTEIN (test code = 7.7 g/dL 6.3-8.2 7255021913) ALBUMIN (test code = 4.3 g/dL 3.5-5.0 8379963462) ALK PHOS (test code = 530 U/L 34-122 H 4821459384) ALTv (test code = 84 U/L 5-35 H 1742-6) AST(SGOT) (test code = 93 U/L 13-40 H 8904110416) eGFR (test code = mL/min/1.73m2 7432546539) KIM (test code = KIM) Association of [...] tests). Lab Interpretation Abnormal (test code = 13101-5) [facility] 16:41:56 Test Item Value Reference Range Interpretation Comments LIPASE (test code = 3407099588) 67 U/L 0-220 Lab Interpretation (test code = Normal 44645-0) [facility] WITH [id number] 16:30:44 Test Item Value Reference Range Interpretation Comments [...] as normal/abnormal . HGB (test code = 10.5 g/dL 11.6-15.0 L 718-7) HCT (test code = 32.6 % 35.7-45.2 L 4544-3) MCV (test code = 93.1 fL 80.6-95.5 787-2) MCH (test code = 30.0 pg 25.9-32.8 785-6) MCHC (test code = 32.2 g/dL 31.6-35.1 786-4) RDW-SD (test code = 49.4 fL 39.0-49.9 21359-3) RDW-CV (test code = 14.4 % 12.0-15.5 788-0) PLT (test code = See_Comment L [Automated 777-3) message] The sy stem which generated this result transmitted reference range : 166 - 358 10*3/ ?L. The reference r luca was not used to interpret this result as normal/abnormal . MPV (test code = 10.1 fL 9.5-12.9 01881-8) IPF % (test code = 2.6 % 1.3-7.7 Platelet count 1796480493) measured by fluorescence method. NRBC/100 WBC (test See_Comment [Automat ed code = 4173611285) message] The system which generated this result transmitted reference range : 0.0 - 10.0 /100 WBCs. The refer ence range was not u sed to interpret th is result as normal/abnormal . NRBC x10^3 (test code <0.01 See_Comment [Auto mated = 1737985371) message] The s ystem which generated this result transmitted reference range : 10*3/?L. The reference range was not used to interpret this result as normal/abnormal . GRAN MAT (NEUT) % 70.3 % (test code = 770-8) IMM GRAN % (test code 0.20 % = 0703001141) LYMPH % (test code = 21.3 % 736-9) MONO % (test code = 6.9 % 5905-5) EOS % (test code = 1.1 % 713-8) BASO % (test code = 0.2 % 706-2) GRAN MAT x10^3(ANC) 3.14 10*3/uL 1.88-7.09 (test code = 4007623825) IMM GRAN x10^3 (test <0.03 0.00-0.06 code = 2141058086) LYMPH x10^3 (test code 0.95 10*3/uL 1.32-3.29 L = 731-0) MONO x10^3 (test code 0.31 10*3/uL 0.33-0.92 L = 742-7) EOS x10^3 (test code = 0.05 10*3/uL 0.03-0.39 711-2) BASO x10^3 (test code <0.03 0.01-0.07 = 704-7) Lab Interpretation Abnormal (test code = 38949-3) [facility] GLUCOSE (AUTOMATED)2021-07-28 22:32:51 Test Item Value Reference Range Interpretation Comments POCT GLU (test code = 7615230589) 94 mg/dL 70-110 Lab Interpretation (test code = Normal 89251-5) [facility] GLUCOSE (AUTOMATED)2021-07-28 16:56:05 Test Item Value Reference Range Interpretation Comments POCT GLU (test code = 2963793429) 107 mg/dL 70-110 Lab Interpretation (test code = Normal 89239-5) [facility] GLUCOSE (AUTOMATED)2021-07-28 13:01:41 Test Item Value Reference Range Interpretation Comments POCT GLU (test code = 8747913172) 104 mg/dL 70-110 Lab Interpretation (test code = Normal 51808-5) [facility]. METABOLIC PANEL (13373)2021-07-28 11:55:38 Test Item Value Reference Range Interpretation Comments NA (test code = 140 mmol/L 135-145 3060111338) K (test code = 3.6 mmol/L 3.5-5.0 3658791669) CL (test code = 108 mmol/L 98-108 1318958971) CO2 TOTAL (test code = 27 mmol/L 23-31 9663689550) AGAP (test code = 2-16 7079799181) BUN (test code = 3 mg/dL 7-23 L 8165276422) GLUCOSE (test code = 93 mg/dL 70-110 0666677554) CREATININE (test code = 0.49 mg/dL 0.50-1.04 L 3703610082) TOTAL BILI (test code = 1.0 mg/dL 0.1-1.7 1824811950) CALCIUM (test code = 8.3 mg/dL 8.6-10.6 L 6759045457) T PROTEIN (test code = 6.5 g/dL 6.3-8.2 1018233604) ALBUMIN (test code = 3.6 g/dL 3.5-5.0 2928782354) ALK PHOS (test code = 431 U/L 34-122 H 0976875722) ALTv (test code = 80 U/L 5-35 H 1742-6) AST(SGOT) (test code = 74 U/L 13-40 H 0598803176) eGFR (test code = mL/min/1.73m2 4784651392) KIM (test code = KIM) Association of [...] tests). Lab Interpretation Abnormal (test code = 48096-9) [facility] 11:55:38 Test Item Value Reference Range Interpretation Comments LIPASE (test code = 2225731550) 74 U/L 0-220 Lab Interpretation (test code = Normal 27309-3) [facility] WITH [id number] 10:40:07 Test Item Value Reference Range Interpretation Comments [...] as normal/abnormal . HGB (test code = 9.5 g/dL 11.6-15.0 L 718-7) HCT (test code = 29.8 % 35.7-45.2 L 4544-3) MCV (test code = 94.3 fL 80.6-95.5 787-2) MCH (test code = 30.1 pg 25.9-32.8 785-6) MCHC (test code = 31.9 g/dL 31.6-35.1 786-4) RDW-SD (test code = 49.7 fL 39.0-49.9 36006-8) RDW-CV (test code = 14.3 % 12.0-15.5 788-0) PLT (test code = See_Comment L [Automated 777-3) message] The sy stem which generated this result transmitted reference range : 166 - 358 10*3/ ?L. The reference r luca was not used to interpret this result as normal/abnormal . MPV (test code = 9.3 fL 9.5-12.9 L 51048-7) NRBC/100 WBC (test See_Comment [Automat ed code = 0436411066) message] The system which generated this result transmitted reference range : 0.0 - 10.0 /100 WBCs. The refer ence range was not u sed to interpret th is result as normal/abnormal . NRBC x10^3 (test code <0.01 See_Comment [Auto mated = 2121260896) message] The s ystem which generated this result transmitted reference range : 10*3/?L. The reference range was not used to interpret this result as normal/abnormal . GRAN MAT (NEUT) % 49.4 % (test code = 770-8) IMM GRAN % (test code 0.00 % = 5228605549) LYMPH % (test code = 38.0 % 736-9) MONO % (test code = 10.0 % 5905-5) EOS % (test code = 2.2 % 713-8) BASO % (test code = 0.4 % 706-2) GRAN MAT x10^3(ANC) 1.34 10*3/uL 1.88-7.09 L (test code = 3299641237) IMM GRAN x10^3 (test <0.03 0.00-0.06 code = 3723742021) LYMPH x10^3 (test code 1.03 10*3/uL 1.32-3.29 L = 731-0) MONO x10^3 (test code 0.27 10*3/uL 0.33-0.92 L = 742-7) EOS x10^3 (test code = 0.06 10*3/uL 0.03-0.39 711-2) BASO x10^3 (test code <0.03 0.01-0.07 = 704-7) Lab Interpretation Abnormal (test code = 00105-8) [facility] GLUCOSE (AUTOMATED)2021-07-28 09:10:56 Test Item Value Reference Range Interpretation Comments POCT GLU (test code = 0158690684) 80 mg/dL 70-110 Lab Interpretation (test code = Normal 68132-4) [facility] GLUCOSE (AUTOMATED)2021-07-28 04:43:28 Test Item Value Reference Range Interpretation Comments POCT GLU (test code = 9986667151) 115 mg/dL 70-110 H Lab Interpretation (test code = Abnormal 39699-1) [facility] GLUCOSE (AUTOMATED)2021-07-28 01:22:31 Test Item Value Reference Range Interpretation Comments POCT GLU (test code = 2557350253) 94 mg/dL 70-110 Lab Interpretation (test code = Normal 64539-1) [facility] GLUCOSE (AUTOMATED)2021-07-27 21:50:22 Test Item Value Reference Range Interpretation Comments POCT GLU (test code = 6656476290) 108 mg/dL 70-110 Lab Interpretation (test code = Normal 03194-3) [facility] GLUCOSE (AUTOMATED)2021-07-27 17:02:26 Test Item Value Reference Range Interpretation Comments POCT GLU (test code = 4958083870) 102 mg/dL 70-110 Lab Interpretation (test code = Normal 19754-5) [facility] GLUCOSE (AUTOMATED)2021-07-27 12:47:28 Test Item Value Reference Range Interpretation Comments POCT GLU (test code = 1992289285) 106 mg/dL 70-110 Lab Interpretation (test code = Normal 42398-8) [facility] WITH [id number] 12:34:02 Test Item Value Reference Range Interpretation Comments [...] . HGB (test code = 10.0 g/dL 11.6-15.0 L 718-7) HCT (test code = 31.4 % 35.7-45.2 L 4544-3) MCV (test code = 93.7 fL 80.6-95.5 787-2) MCH (test code = 29.9 pg 25.9-32.8 785-6) MCHC (test code = 31.8 g/dL 31.6-35.1 786-4) RDW-SD (test code = 47.6 fL 39.0-49.9 63464-0) RDW-CV (test code = 14.0 % 12.0-15.5 788-0) PLT (test code = See_Comment L [Automated 777-3) message] The sy stem which generated this result transmitted reference range : 166 - 358 10*3/ ?L. The reference r luca was not used to interpret this result as normal/abnormal . MPV (test code = 9.5 fL 9.5-12.9 55923-5) NRBC/100 WBC (test See_Comment [Automat ed code = 8918896639) message] The system which generated this result transmitted reference range : 0.0 - 10.0 /100 WBCs. The refer ence range was not u sed to interpret th is result as normal/abnormal . NRBC x10^3 (test code <0.01 See_Comment [Auto mated = 1111137434) message] The s ystem which generated this result transmitted reference range : 10*3/?L. The reference range was not used to interpret this result as normal/abnormal . GRAN MAT (NEUT) % 56.3 % (test code = 770-8) IMM GRAN % (test code 0.80 % = 5902306320) LYMPH % (test code = 33.5 % 736-9) MONO % (test code = 8.6 % 5905-5) EOS % (test code = 0.4 % 713-8) BASO % (test code = 0.4 % 706-2) GRAN MAT x10^3(ANC) 1.50 10*3/uL 1.88-7.09 L (test code = 1782266945) IMM GRAN x10^3 (test <0.03 0.00-0.06 code = 9256056514) LYMPH x10^3 (test code 0.89 10*3/uL 1.32-3.29 L = 731-0) MONO x10^3 (test code 0.23 10*3/uL 0.33-0.92 L = 742-7) EOS x10^3 (test code = <0.03 0.03-0.39 L 711-2) BASO x10^3 (test code <0.03 0.01-0.07 = 704-7) Lab Interpretation Abnormal (test code = 89783-0) [facility] 11:06:32 Test Item Value Reference Range Interpretation Comments MAGNESIUM (test code = 5610501887) 2.0 mg/dL 1.7-2.4 Lab Interpretation (test code = Normal 49048-1) [facility] (NA, K, CL, CO2, GLUCOSE, BUN, CREATININE, CA)2021-07-27 11:06:32 Test Item Value Reference Range Interpretation Comments NA (test code = 141 mmol/L 135-145 3599705738) K (test code = 3.8 mmol/L 3.5-5.0 3525363704) CL (test code = 107 mmol/L 98-108 5786716649) CO2 TOTAL (test code = 25 mmol/L 23-31 0817746536) AGAP (test code = 2-16 3256762320) BUN (test code = 6 mg/dL 7-23 L 1741712675) GLUCOSE (test code = 100 mg/dL 70-110 3920784122) CREATININE (test code = 0.46 mg/dL 0.50-1.04 L 7475985237) CALCIUM (test code = 8.6 mg/dL 8.6-10.6 8273634612) eGFR (test code = mL/min/1.73m2 6049226587) KIM (test code = KIM) Association of [...] tests). Lab Interpretation Abnormal (test code = 46211-1) [facility] GLUCOSE (AUTOMATED)2021-07-27 08:58:50 Test Item Value Reference Range Interpretation Comments POCT GLU (test code = 6888914862) 95 mg/dL 70-110 Lab Interpretation (test code = Normal 44556-5) [facility] GLUCOSE (AUTOMATED)2021-07-27 06:51:37 Test Item Value Reference Range Interpretation Comments POCT GLU (test code = 1773957732) 146 mg/dL 70-110 H Lab Interpretation (test code = Abnormal 31189-7) [facility] GLUCOSE (AUTOMATED)2021-07-27 01:52:10 Test Item Value Reference Range Interpretation Comments POCT GLU (test code = 4786466650) 111 mg/dL 70-110 H Lab Interpretation (test code = Abnormal 28648-9) [facility] 22:12:47 Test Item Value Reference Range Interpretation Comments MAGNESIUM (test code = 2853044992) 1.5 mg/dL 1.7-2.4 L Lab Interpretation (test code = Abnormal 80486-6) [facility] GLUCOSE (AUTOMATED)2021-07-26 22:04:12 Test Item Value Reference Range Interpretation Comments POCT GLU (test code = 0684528667) 106 mg/dL 70-110 Lab Interpretation (test code = Normal 16740-3) [facility] GLUCOSE (AUTOMATED)2021-07-26 16:59:07 Test Item Value Reference Range Interpretation Comments POCT GLU (test code = 9276250837) 80 mg/dL 70-110 Lab Interpretation (test code = Normal 11307-9) [facility] METABOLIC PANEL (NA, K, CL, CO2, GLUCOSE, BUN, CREATININE, CA)2021-07-26 12:05:38 Test Item Value Reference Range Interpretation Comments NA (test code = 137 mmol/L 135-145 1796518668) K (test code = 3.9 mmol/L 3.5-5.0 5879573070) CL (test code = 104 mmol/L 98-108 1873737456) CO2 TOTAL (test code = 25 mmol/L 23-31 9647169179) AGAP (test code = 2-16 7180379776) BUN (test code = 8 mg/dL 7-23 6434701284) GLUCOSE (test code = 100 mg/dL 70-110 1967359220) CREATININE (test code = 0.45 mg/dL 0.50-1.04 L 7935770848) CALCIUM (test code = 8.7 mg/dL 8.6-10.6 0211396873) eGFR (test code = mL/min/1.73m2 2204012300) KIM (test code = KIM) Association of [...] tests). Lab Interpretation Abnormal (test code = 91932-8) [facility] 12:04:57 Test Item Value Reference Range Interpretation Comments LIPASE (test code = 5318102776) 58 U/L 0-220 Lab Interpretation (test code = Normal 86131-5) [facility] WITH [id number] 10:22:45 Test Item Value Reference Range Interpretation Comments [...] as normal/abnormal . HGB (test code = 9.6 g/dL 11.6-15.0 L 718-7) HCT (test code = 29.3 % 35.7-45.2 L 4544-3) MCV (test code = 91.3 fL 80.6-95.5 787-2) MCH (test code = 29.9 pg 25.9-32.8 785-6) MCHC (test code = 32.8 g/dL 31.6-35.1 786-4) RDW-SD (test code = 45.4 fL 39.0-49.9 42940-6) RDW-CV (test code = 13.7 % 12.0-15.5 788-0) PLT (test code = See_Comment L [Automated 777-3) message] The sy stem which generated this result transmitted reference range : 166 - 358 10*3/ ?L. The reference r luca was not used to interpret this result as normal/abnormal . MPV (test code = 9.4 fL 9.5-12.9 L 14775-5) NRBC/100 WBC (test See_Comment [Automat ed code = 4373304800) message] The system which generated this result transmitted reference range : 0.0 - 10.0 /100 WBCs. The refer ence range was not u sed to interpret th is result as normal/abnormal . NRBC x10^3 (test code <0.01 See_Comment [Auto mated = 1482711244) message] The s ystem which generated this result transmitted reference range : 10*3/?L. The reference range was not used to interpret this result as normal/abnormal . GRAN MAT (NEUT) % 67.8 % (test code = 770-8) IMM GRAN % (test code 0.60 % = 8236978140) LYMPH % (test code = 24.4 % 736-9) MONO % (test code = 6.6 % 5905-5) EOS % (test code = 0.3 % 713-8) BASO % (test code = 0.3 % 706-2) GRAN MAT x10^3(ANC) 2.25 10*3/uL 1.88-7.09 (test code = 7219389521) IMM GRAN x10^3 (test <0.03 0.00-0.06 code = 4282459519) LYMPH x10^3 (test code 0.81 10*3/uL 1.32-3.29 L = 731-0) MONO x10^3 (test code 0.22 10*3/uL 0.33-0.92 L = 742-7) EOS x10^3 (test code = <0.03 0.03-0.39 L 711-2) BASO x10^3 (test code <0.03 0.01-0.07 = 704-7) Lab Interpretation Abnormal (test code = 70475-8) [facility] (49208[facility] (ALB,T.PRO,BILI T,BU/BC,ALT,AST,ALK PHOS)2021-07-25 16:47:05 Test Item Value Reference Range Interpretation Comments TOTAL BILI (test code = 1464429882) 1.1 mg/dL 0.1-1.1 BILI UNCON (test code = 0231584570) 0.4 mg/dL 0.1-1.1 BILI CONJ (test code = 5016129120) 0.0 mg/dL 0.0-0.3 T PROTEIN (test code = 3609436367) 4.0 g/dL 6.3-8.2 L ALBUMIN (test code = 3326077612) 1.9 g/dL 3.5-5.0 L ALK PHOS (test code = 8891935595) 229 U/L 34-122 H ALTv (test code = 1742-6) 59 U/L 5-35 H AST(SGOT) (test code = 7488678531) 68 U/L 13-40 H Lab Interpretation (test code = Abnormal 57663-1) [facility]2021-07-25 14:21:54 Test Item Value Reference Range Interpretation Comments POCT GLU (test code = 2955192735) 113 mg/dL 70-110 H Lab Interpretation (test code = Abnormal 75305-3) [facility] (NA, K, CL, CO2, GLUCOSE, BUN, CREATININE, CA)2021-07-25 14:06:58 Test Item Value Reference Range Interpretation Comments NA (test code = 132 mmol/L 135-145 L 3637138384) K (test code = 4.1 mmol/L 3.5-5.0 6275718215) CL (test code = 110 mmol/L 98-108 H 8068219882) CO2 TOTAL (test code = 13 mmol/L 23-31 L 9194549965) AGAP (test code = 2-16 8114777020) BUN (test code = 4 mg/dL 7-23 L 2161280706) GLUCOSE (test code = 48 mg/dL 70-110 LL 5235158292) CREATININE (test code = 0.21 mg/dL 0.50-1.04 L 0412438290) CALCIUM (test code = 6.4 mg/dL 8.6-10.6 L 4885866866) eGFR (test code = mL/min/1.73m2 3939201670) KIM (test code = KIM) Association of [...] tests). Lab Interpretation Abnormal (test code = 42884-0) [facility] WITH [id number] 14:04:42 Test Item Value Reference Range Interpretation Comments WBC (test code = See_Comment L [Automated 3190-2) message] The sy stem which generated this result transmitted reference range : 4.30 - 11.10 10*3/?L. The reference range was not used to interpret this result as normal/abnormal . RBC (test code = See_Comment L [Automated 429-8) message] The sy stem which generated this result transmitted reference range : 3.93 - 5.25 10*6/?L. The reference range was not used to interpret this result as normal/abnormal . HGB (test code = 10.1 g/dL 11.6-15.0 L 718-7) HCT (test code = 30.7 % 35.7-45.2 L 4544-3) MCV (test code = 93.0 fL 80.6-95.5 787-2) MCH (test code = 30.6 pg 25.9-32.8 785-6) MCHC (test code = 32.9 g/dL 31.6-35.1 786-4) RDW-SD (test code = 46.7 fL 39.0-49.9 07652-5) RDW-CV (test code = 13.6 % 12.0-15.5 788-0) PLT (test code = See_Comment L [Automated 777-3) message] The sy stem which generated this result transmitted reference range : 166 - 358 10*3/ ?L. The reference r luca was not used to interpret this result as normal/abnormal . MPV (test code = 10.8 fL 9.5-12.9 84085-7) NRBC/100 WBC (test See_Comment [Automat ed code = 0494918850) message] The system which generated this result transmitted reference range : 0.0 - 10.0 /100 WBCs. The refer ence range was not u sed to interpret th is result as normal/abnormal . NRBC x10^3 (test code <0.01 See_Comment [Auto mated = 8106737518) message] The s ystem which generated this result transmitted reference range : 10*3/?L. The reference range was not used to interpret this result as normal/abnormal . GRAN MAT (NEUT) % 53.2 % (test code = 770-8) IMM GRAN % (test code 0.40 % = 1293298137) LYMPH % (test code = 34.3 % 736-9) MONO % (test code = 10.0 % 5905-5) EOS % (test code = 1.7 % 713-8) BASO % (test code = 0.4 % 706-2) GRAN MAT x10^3(ANC) 1.27 10*3/uL 1.88-7.09 L (test code = 3679262612) IMM GRAN x10^3 (test <0.03 0.00-0.06 code = 3214940397) LYMPH x10^3 (test code 0.82 10*3/uL 1.32-3.29 L = 731-0) MONO x10^3 (test code 0.24 10*3/uL 0.33-0.92 L = 742-7) EOS x10^3 (test code = 0.04 10*3/uL 0.03-0.39 711-2) BASO x10^3 (test code <0.03 0.01-0.07 = 704-7) Lab Interpretation Abnormal (test code = 46051-3) [id number] 11:34:51 Test Item Value Reference Range Interpretation Comments MAGNESIUM (test code = 8624686598) 1.6 mg/dL 1.7-2.4 L Lab Interpretation (test code = Abnormal 30134-5) [facility] Metabolic Panel (NA, K, CL, CO2, GLUCOSE, BUN, CREATININE, CA)2021-07-24 11:34:31 Test Item Value Reference Range Interpretation Comments NA (test code = 137 mmol/L 135-145 4271863835) K (test code = 4.4 mmol/L 3.5-5.0 9492078848) CL (test code = 106 mmol/L 98-108 6420859219) CO2 TOTAL (test code 23 mmol/L 23-31 = 0894422094) AGAP (test code = 2-16 7195904102) BUN (test code = 14 mg/dL 7-23 0107691757) GLUCOSE (test code = 84 mg/dL 70-110 0843974445) CREATININE (test code 0.54 mg/dL 0.50-1.04 = 8570452157) CALCIUM (test code = 8.7 mg/dL 8.6-10.6 1624347805) eGFR (test code = mL/min/1.73m2 2291640103) KIM (test code = KIM) Association of [...] or urine or abnormalities in imaging tests). [facility]67980[facility] (ALB,T.PRO,BILI T,BU/BC,ALT,AST,ALK PHOS)2021-07-24 11:34:31 Test Item Value Reference Range Interpretation Comments TOTAL BILI (test code = 6382639870) 1.9 mg/dL 0.1-1.1 H BILI UNCON (test code = 8161727526) 0.8 mg/dL 0.1-1.1 BILI CONJ (test code = 1295013944) 0.0 mg/dL 0.0-0.3 T PROTEIN (test code = 0781987197) 8.0 g/dL 6.3-8.2 ALBUMIN (test code = 4377270186) 4.3 g/dL 3.5-5.0 ALK PHOS (test code = 4312373155) 512 U/L 34-122 H ALTv (test code = 1742-6) 111 U/L 5-35 H AST(SGOT) (test code = 5018046492) 107 U/L 13-40 H Lab Interpretation (test code = Abnormal 31477-5) [facility] with Htjxnohearrj9868-74-48 10:17:09 Test Item Value Reference Range Interpretation Comments [...] . HGB (test code = 10.0 g/dL 11.6-15.0 L 718-7) HCT (test code = 30.7 % 35.7-45.2 L 4544-3) MCV (test code = 91.9 fL 80.6-95.5 787-2) MCH (test code = 29.9 pg 25.9-32.8 785-6) MCHC (test code = 32.6 g/dL 31.6-35.1 786-4) RDW-SD (test code = 47.5 fL 39.0-49.9 86086-4) RDW-CV (test code = 13.9 % 12.0-15.5 788-0) PLT (test code = See_Comment L [Automated 777-3) message] The sy stem which generated this result transmitted reference range : 166 - 358 10*3/ ?L. The reference r luca was not used to interpret this result as normal/abnormal . MPV (test code = 11.2 fL 9.5-12.9 14459-1) NRBC/100 WBC (test See_Comment [Automat ed code = [id number]) message] The system which generated this result transmitted reference range : 0.0 - 10.0 /100 WBCs. The refer ence range was not u sed to interpret th is result as normal/abnormal . NRBC x10^3 (test code <0.01 See_Comment [Auto mated = [id number]) message] The s ystem which generated this result transmitted reference range : 10*3/?L. The reference range was not used to interpret this result as normal/abnormal . GRAN MAT (NEUT) % 49.4 % (test code = 770-8) IMM GRAN % (test code 0.30 % = 2559709235) LYMPH % (test code = 39.2 % 736-9) MONO % (test code = 8.5 % 5905-5) EOS % (test code = 2.3 % 713-8) BASO % (test code = 0.3 % 706-2) GRAN MAT x10^3(ANC) 1.69 10*3/uL 1.88-7.09 L (test code = 8198412658) IMM GRAN x10^3 (test <0.03 0.00-0.06 code = 8840918308) LYMPH x10^3 (test code 1.34 10*3/uL 1.32-3.29 = 731-0) MONO x10^3 (test code 0.29 10*3/uL 0.33-0.92 L = 742-7) EOS x10^3 (test code = 0.08 10*3/uL 0.03-0.39 711-2) BASO x10^3 (test code <0.03 0.01-0.07 = 704-7) Lab Interpretation Abnormal (test code = 13123-5) [id number]:21:52 Test Item Value Reference Range Interpretation Comments PHOSPHORUS (test code = 9615399565) 3.9 mg/dL 2.5-5.0 Lab Interpretation (test code = Normal 70628-7) [facility] [id number] 22:06:24 Test Item Value Reference Interpretation Comments Range TROPONIN I (test 0.006 ng/mL See_Comment [Automated code = [id number]) message] The system which generated this result [...] biotin. Lab Interpretation Normal (test code = 51481-5) [facility] 21:55:26 Test Item Value Reference Range Interpretation Comments MAGNESIUM (test code = 3283651783) 1.6 mg/dL 1.7-2.4 L Lab Interpretation (test code = Abnormal 65144-9) [facility]OLIC PANEL (43911)2021-07-23 21:55:06 Test Item Value Reference Range Interpretation Comments NA (test code = 139 mmol/L 135-145 3237116136) K (test code = 4.3 mmol/L 3.5-5.0 4392171063) CL (test code = 103 mmol/L 98-108 0431611022) CO2 TOTAL (test code = 24 mmol/L 23-31 5508814718) AGAP (test code = 2-16 7235980148) BUN (test code = 15 mg/dL 7-23 4217850912) GLUCOSE (test code = 102 mg/dL 70-110 1709387416) CREATININE (test code = 0.74 mg/dL 0.50-1.04 6776252605) TOTAL BILI (test code = 2.0 mg/dL 0.1-1.1 H 1087555337) CALCIUM (test code = 9.4 mg/dL 8.6-10.6 7534406437) T PROTEIN (test code = 8.9 g/dL 6.3-8.2 H 3185537323) ALBUMIN (test code = 4.9 g/dL 3.5-5.0 6569683306) ALK PHOS (test code = 653 U/L 34-122 H 2375254336) ALTv (test code = 133 U/L 5-35 H 1742-6) AST(SGOT) (test code = 130 U/L 13-40 H 5362706252) eGFR (test code = mL/min/1.73m2 9914673441) KIM (test code = KIM) Association of [...] tests). Lab Interpretation Abnormal (test code = 12760-7) [id number] 21:55:06 Test Item Value Reference Interpretation Comments Range D-DIMER (test code = See_Comment [Autom ated 0934951113) message] The system which generated this result transmitted reference range : <0.41 ?g/mL (FEU). The reference range was not used to interpret this result as normal/abnormal . KIM (test code = This test may be KIM) used in conjunction with a clinical pretest probability (PTP) assessment model to exclude venous thromboembolism (VTE) in patients suspected of deep venous thrombosis (DVT) and pulmonary embolism (PE) A D-Dimer value less than 0.50 ?g/ml (FEU) has a negative predicative value of 96 to 100% (95% CI)and 97 to 100% (95% CI) as an aid in the diagnosis of deep vein thrombosis (DVT) and pulmonary embolism when there is low or moderate pretest probability of PE or DVT. D-Dimer values are expressed in initial fibrinogen equivalent units (FEU)" The assay results should be used with other information, including the clinical context, in forming a diagnosis. Lab Interpretation Normal (test code = 75379-6) [facility] 21:54:46 Test Item Value Reference Range Interpretation Comments LIPASE (test code = 3742580595) 66 U/L 0-220 Lab Interpretation (test code = Normal 75939-3) [facility] [id number] 21:44:24 Test Item Value Reference Range Interpretation Comments [...] as normal/abnormal . HGB (test code = 11.1 g/dL 11.6-15.0 L 718-7) HCT (test code = 34.8 % 35.7-45.2 L 4544-3) MCV (test code = 92.8 fL 80.6-95.5 787-2) MCH (test code = 29.6 pg 25.9-32.8 785-6) MCHC (test code = 31.9 g/dL 31.6-35.1 786-4) RDW-SD (test code = 47.5 fL 39.0-49.9 03169-9) RDW-CV (test code = 13.9 % 12.0-15.5 788-0) PLT (test code = See_Comment L [Automated 777-3) message] The sy stem which generated this result transmitted reference range : 166 - 358 10*3/ ?L. The reference r luca was not used to interpret this result as normal/abnormal . MPV (test code = 10.1 fL 9.5-12.9 07870-4) NRBC/100 WBC (test See_Comment [Automat ed code = 3610618856) message] The system which generated this result transmitted reference range : 0.0 - 10.0 /100 WBCs. The refer ence range was not u sed to interpret th is result as normal/abnormal . NRBC x10^3 (test code <0.01 See_Comment [Auto mated = 3846677992) message] The s ystem which generated this result transmitted reference range : 10*3/?L. The reference range was not used to interpret this result as normal/abnormal . GRAN MAT (NEUT) % 67.1 % (test code = 770-8) IMM GRAN % (test code 0.20 % = 0423669873) LYMPH % (test code = 24.9 % 736-9) MONO % (test code = 5.9 % 5905-5) EOS % (test code = 1.7 % 713-8) BASO % (test code = 0.2 % 706-2) GRAN MAT x10^3(ANC) 2.74 10*3/uL 1.88-7.09 (test code = 1009649634) IMM GRAN x10^3 (test <0.03 0.00-0.06 code = 3002773714) LYMPH x10^3 (test code 1.02 10*3/uL 1.32-3.29 L = 731-0) MONO x10^3 (test code 0.24 10*3/uL 0.33-0.92 L = 742-7) EOS x10^3 (test code = 0.07 10*3/uL 0.03-0.39 711-2) BASO x10^3 (test code <0.03 0.01-0.07 = 704-7) Lab Interpretation Abnormal (test code = 80971-9) [id number] 21:47:03 Test Item Value Reference Interpretation Comments Range TROPONIN I (test 0.006 ng/mL See_Comment [Automated code = 6876647172) message] The system which generated this result [...] biotin. Lab Interpretation Normal (test code = 45646-3) [facility] [id number] 21:44:02 Test Item Value Reference Range Interpretation Comments NT-proBNP (test code 75 pg/mL See_Comment [Autom ated = 0180293539) message] The system which generated this result transmitted reference range : <=125. The reference range was not used to interpret this result as normal/abnormal . KIM (test code = KIM) Biotin has been reported to cause a negative bias, interpret results relative to patient's use of biotin. Lab Interpretation Normal (test code = 41204-6) [facility]COMP[facility] MET[facility]OLIC PANEL ([id number])2021-06-03 21:37:20 Test Item Value Reference Range Interpretation Comments NA (test code = 137 mmol/L 135-145 7496578366) K (test code = 4.2 mmol/L 3.5-5.0 9032475506) CL (test code = 108 mmol/L 98-108 7722058176) CO2 TOTAL (test code = 26 mmol/L 23-31 6948659251) AGAP (test code = 2-16 1490298923) BUN (test code = 13 mg/dL 7-23 7151653553) GLUCOSE (test code = 83 mg/dL 70-110 3804013751) CREATININE (test code = 0.51 mg/dL 0.50-1.04 7207039788) TOTAL BILI (test code = 1.4 mg/dL 0.1-1.1 H 2938163697) CALCIUM (test code = 8.6 mg/dL 8.6-10.6 0365752280) T PROTEIN (test code = 7.8 g/dL 6.3-8.2 1261909680) ALBUMIN (test code = 4.3 g/dL 3.5-5.0 9126409607) ALK PHOS (test code = 731 U/L 34-122 H 1226188299) ALTv (test code = 162 U/L 5-35 H 1742-6) AST(SGOT) (test code = 251 U/L 13-40 H 3955121121) eGFR (test code = mL/min/1.73m2 1582326924) KIM (test code = KIM) Association of [...] tests). Lab Interpretation Abnormal (test code = 11820-0) [facility] 21:37:00 Test Item Value Reference Range Interpretation Comments LIPASE (test code = 1625976756) 62 U/L 0-220 Lab Interpretation (test code = Normal 70020-6) [facility] HospitalACTIVATED PARTIAL THRMPLAS [id number] 21:33:43 Test Item Value Reference Range Interpretation Comments APTT Patient (test See_Comment [Automat ed code = 3173-2) message] The system which generated this result transmitted reference range : 23 - 38 Seconds . The reference range was not used to interpr et this result as normal/abnormal . KIM (test code = KIM) The [facility] patient population mean normal value for aPTT is 30 seconds. Lab Interpretation Normal (test code = 49519-3) [facility] HospitalPROTHROMBIN TIME / [id number] 21:31:42 Test Item Value Reference Range Interpretation Comments [...] tions. Lab Interpretation (test Normal code = 11032-8) [facility]CBC WITH [id number] 21:18:43 Test Item Value Reference Range Interpretation Comments [...] as normal/abnormal . HGB (test code = 11.1 g/dL 11.6-15.0 L 718-7) HCT (test code = 34.6 % 35.7-45.2 L 4544-3) MCV (test code = 90.8 fL 80.6-95.5 787-2) MCH (test code = 29.1 pg 25.9-32.8 785-6) MCHC (test code = 32.1 g/dL 31.6-35.1 786-4) RDW-SD (test code = 46.3 fL 39.0-49.9 39619-4) RDW-CV (test code = 13.8 % 12.0-15.5 788-0) PLT (test code = See_Comment L [Automated 777-3) message] The sy stem which generated this result transmitted reference range : 166 - 358 10*3/ ?L. The reference r luca was not used to interpret this result as normal/abnormal . MPV (test code = 9.5 fL 9.5-12.9 33464-1) IPF % (test code = 2.0 % 1.3-7.7 Platelet count 4311524075) measured by fluorescence method. NRBC/100 WBC (test See_Comment [Automat ed code = 0733329169) message] The system which generated this result transmitted reference range : 0.0 - 10.0 /100 WBCs. The refer ence range was not u sed to interpret th is result as normal/abnormal . NRBC x10^3 (test code <0.01 See_Comment [Auto mated = 5191476241) message] The s ystem which generated this result transmitted reference range : 10*3/?L. The reference range was not used to interpret this result as normal/abnormal . GRAN MAT (NEUT) % 68.8 % (test code = 770-8) IMM GRAN % (test code 0.20 % = 9289728573) LYMPH % (test code = 20.0 % 736-9) MONO % (test code = 10.3 % 5905-5) EOS % (test code = 0.5 % 713-8) BASO % (test code = 0.2 % 706-2) GRAN MAT x10^3(ANC) 2.79 10*3/uL 1.88-7.09 (test code = 1465743962) IMM GRAN x10^3 (test <0.03 0.00-0.06 code = 3996694121) LYMPH x10^3 (test code 0.81 10*3/uL 1.32-3.29 L = 731-0) MONO x10^3 (test code 0.42 10*3/uL 0.33-0.92 = 742-7) EOS x10^3 (test code = <0.03 0.03-0.39 L 711-2) BASO x10^3 (test code <0.03 0.01-0.07 = 704-7) Lab Interpretation Abnormal (test code = 65058-3) [facility] HospitalLactic Acid Whole [id number] 20:33:44 Test Item Value Reference Range Interpretation Comments LACTIC ACID (test code = 1.37 mmol/L 0.50-2.20 6774339850) Lab Interpretation (test code = Normal 84912-3) [facility] HospitalTROPONIN [id number] 06:39:31 Test Item Value Reference Interpretation Comments Range TROPONIN I (test 0.027 ng/mL See_Comment [Automated code = 6233519186) message] The system which generated this result [...] biotin. Lab Interpretation Normal (test code = 59819-1) [facility]N-[facility]MINAL [id number] 06:36:10 Test Item Value Reference Range Interpretation Comments NT-proBNP (test code 68 pg/mL See_Comment [Autom ated = 6555692852) message] The system which generated this result transmitted reference range : <=125. The reference range was not used to interpret this result as normal/abnormal . KIM (test code = KIM) Biotin has been reported to cause a negative bias, interpret results relative to patient's use of biotin. Lab Interpretation Normal (test code = 19160-4) [facility] WITH [id number] 06:30:54 Test Item Value Reference Range Interpretation [...] RDW-SD (test code = 47.1 fL 39.0-49.9 40316-1) RDW-CV (test code = 13.9 % 12.0-15.5 788-0) PLT (test code = See_Comment L [Automated 777-3) message] The sy stem which generated this result transmitted reference range : 166 - 358 10*3/ ?L. The reference r luca was not used to interpret this result as normal/abnormal . MPV (test code = 10.2 fL 9.5-12.9 33547-7) NRBC/100 WBC (test See_Comment [Automat ed code = 2470296485) message] The system which generated this result transmitted reference range : 0.0 - 10.0 /100 WBCs. The refer ence range was not u sed to interpret th is result as normal/abnormal . NRBC x10^3 (test code <0.01 See_Comment [Auto mated = 4871398364) message] The s ystem which generated this result transmitted reference range : 10*3/?L. The reference range was not used to interpret this result as normal/abnormal . GRAN MAT (NEUT) % 62.6 % (test code = 770-8) IMM GRAN % (test code 0.00 % = 3488484640) LYMPH % (test code = 25.3 % 736-9) MONO % (test code = 9.5 % 5905-5) EOS % (test code = 2.2 % 713-8) BASO % (test code = 0.4 % 706-2) GRAN MAT x10^3(ANC) 1.71 10*3/uL 1.88-7.09 L (test code = 0241042509) IMM GRAN x10^3 (test <0.03 0.00-0.06 code = 8039134280) LYMPH x10^3 (test code 0.69 10*3/uL 1.32-3.29 L = 731-0) MONO x10^3 (test code 0.26 10*3/uL 0.33-0.92 L = 742-7) EOS x10^3 (test code = 0.06 10*3/uL 0.03-0.39 711-2) BASO x10^3 (test code <0.03 0.01-0.07 = 704-7) Lab Interpretation Abnormal (test code = 36427-4) [facility]. METABOLIC PANEL ([id number])2021-05-22 06:27:49 Test Item Value Reference Range Interpretation Comments NA (test code = 138 mmol/L 135-145 5459935493) K (test code = 4.9 mmol/L 3.5-5.0 5441269158) CL (test code = 105 mmol/L 98-108 5701697569) CO2 TOTAL (test code = 24 mmol/L 23-31 0796008772) AGAP (test code = 2-16 7200406865) BUN (test code = 6 mg/dL 7-23 L 3449468240) GLUCOSE (test code = 128 mg/dL 70-110 H 4704501727) CREATININE (test code = 0.54 mg/dL 0.50-1.04 0061072272) TOTAL BILI (test code = 1.3 mg/dL 0.1-1.1 H 0818079024) CALCIUM (test code = 8.4 mg/dL 8.6-10.6 L 4978748170) T PROTEIN (test code = 8.3 g/dL 6.3-8.2 H 1896429072) ALBUMIN (test code = 4.4 g/dL 3.5-5.0 9378450359) ALK PHOS (test code = 650 U/L 34-122 H 4590232775) ALTv (test code = 59 U/L 5-35 H 1742-6) AST(SGOT) (test code = 105 U/L 13-40 H 7124621677) eGFR (test code = mL/min/1.73m2 4237715240) KIM (test code = KIM) Association of [...] tests). Lab Interpretation Abnormal (test code = 14904-4) [facility] MOLECULAR [id number] 15:37:16 Test Item Value Reference Range Interpretation Comments POCT Molecular FluA (test code = Negative Negative 46703-0) POCT Molecular FluB (test code = Negative Negative 52429-4) Lab Interpretation (test code = Normal 60551-7) [facility] HospitalPOCT MOLECULAR [id number] 15:30:18 Test Item Value Reference Range Interpretation Comments POCT Molecular Strep (test code = Negative Negative 00306-0) Lab Interpretation (test code = Normal 59801-5) [facility] HospitalTROPONIN [id number] 21:11:35 Test Item Value Reference Interpretation Comments Range TROPONIN I (test 0.002 ng/mL See_Comment [Automated code = 7615157565) message] The system which generated this result [...] biotin. Lab Interpretation Normal (test code = 18138-0) [facility] HospitalCOM[facility] MET[facility]OLIC PANEL ([id number])2021-04-15 20:54:19 Test Item Value Reference Range Interpretation Comments NA (test code = 137 mmol/L 135-145 3816824488) K (test code = 3.8 mmol/L 3.5-5.0 3578212311) CL (test code = 103 mmol/L 98-108 6141063301) CO2 TOTAL (test code = 26 mmol/L 23-31 0374244826) AGAP (test code = 2-16 4742487220) BUN (test code = 12 mg/dL 7-23 9086600381) GLUCOSE (test code = 111 mg/dL 70-110 H 1364011601) CREATININE (test code = 0.61 mg/dL 0.50-1.04 1155038238) TOTAL BILI (test code = 1.2 mg/dL 0.1-1.1 H 5338654272) CALCIUM (test code = 8.9 mg/dL 8.6-10.6 7883700853) T PROTEIN (test code = 8.1 g/dL 6.3-8.2 1897542647) ALBUMIN (test code = 4.3 g/dL 3.5-5.0 0953398866) ALK PHOS (test code = 693 U/L 34-122 H 7151121935) ALTv (test code = 93 U/L 5-35 H 1742-6) AST(SGOT) (test code = 108 U/L 13-40 H 7739231885) eGFR (test code = mL/min/1.73m2 1484818045) KIM (test code = KIM) Association of [...] tests). Lab Interpretation Abnormal (test code = 30312-8) [facility] 20:53:54 Test Item Value Reference Range Interpretation Comments LIPASE (test code = 2252170120) 59 U/L 0-220 Lab Interpretation (test code = Normal 43655-7) [facility] WITH [id number] 20:33:32 Test Item Value Reference Range Interpretation [...] RDW-SD (test code = 45.8 fL 39.0-49.9 25111-6) RDW-CV (test code = 13.7 % 12.0-15.5 788-0) PLT (test code = See_Comment [Automated 777-3) message] The sy stem which generated this result transmitted reference range : 166 - 358 10*3/ ?L. The reference r luca was not used to interpret this result as normal/abnormal . MPV (test code = 9.5 fL 9.5-12.9 27686-8) NRBC/100 WBC (test See_Comment [Automat ed code = 6700824319) message] The system which generated this result transmitted reference range : 0.0 - 10.0 /100 WBCs. The refer ence range was not u sed to interpret th is result as normal/abnormal . NRBC x10^3 (test code <0.01 See_Comment [Auto mated = 8482702631) message] The s ystem which generated this result transmitted reference range : 10*3/?L. The reference range was not used to interpret this result as normal/abnormal . GRAN MAT (NEUT) % 70.5 % (test code = 770-8) IMM GRAN % (test code 0.70 % = 0041104423) LYMPH % (test code = 20.2 % 736-9) MONO % (test code = 6.7 % 5905-5) EOS % (test code = 1.4 % 713-8) BASO % (test code = 0.5 % 706-2) GRAN MAT x10^3(ANC) 3.07 10*3/uL 1.88-7.09 (test code = 6378363169) IMM GRAN x10^3 (test 0.03 10*3/uL 0.00-0.06 code = 2802251093) LYMPH x10^3 (test code 0.88 10*3/uL 1.32-3.29 L = 731-0) MONO x10^3 (test code 0.29 10*3/uL 0.33-0.92 L = 742-7) EOS x10^3 (test code = 0.06 10*3/uL 0.03-0.39 711-2) BASO x10^3 (test code <0.03 0.01-0.07 = 704-7) Lab Interpretation Abnormal (test code = 96736-4) [facility] [id number] 01:49:11 Test Item Value Reference Interpretation Comments Range TROPONIN I (test 0.002 ng/mL See_Comment [Automated code = 1747609038) message] The system which generated this result [...] biotin. Lab Interpretation Normal (test code = 31203-7) [facility] [id number] 01:46:10 Test Item Value Reference Range Interpretation Comments NT-proBNP (test code 56 pg/mL See_Comment [Autom ated = 8008673543) message] The system which generated this result transmitted reference range : <=125. The reference range was not used to interpret this result as normal/abnormal . KIM (test code = KIM) Biotin has been reported to cause a negative bias, interpret results relative to patient's use of biotin. Lab Interpretation Normal (test code = 78552-5) [facility] MET[facility]OLIC PANEL ([id number])2021-03-26 01:37:29 Test Item Value Reference Range Interpretation Comments NA (test code = 134 mmol/L 135-145 L 0034033844) K (test code = 4.6 mmol/L 3.5-5.0 8301135375) CL (test code = 103 mmol/L 98-108 2169218496) CO2 TOTAL (test code = 21 mmol/L 23-31 L 3641487521) AGAP (test code = 2-16 2473795982) BUN (test code = 21 mg/dL 7-23 4423452185) GLUCOSE (test code = 98 mg/dL 70-110 0314889588) CREATININE (test code = 0.89 mg/dL 0.50-1.04 5017937472) TOTAL BILI (test code = 1.0 mg/dL 0.1-1.1 3138604689) CALCIUM (test code = 9.6 mg/dL 8.6-10.6 2672235567) T PROTEIN (test code = 8.0 g/dL 6.3-8.2 8410820582) ALBUMIN (test code = 4.5 g/dL 3.5-5.0 3421497707) ALK PHOS (test code = 818 U/L 34-122 H 9616989217) ALTv (test code = 201 U/L 5-35 H 1742-6) AST(SGOT) (test code = 174 U/L 13-40 H 2772769570) eGFR (test code = mL/min/1.73m2 3082054737) KIM (test code = KIM) Association of [...] tests). Lab Interpretation Abnormal (test code = 53675-3) [facility] 01:37:09 Test Item Value Reference Range Interpretation Comments LIPASE (test code = 6948175721) 176 U/L 0-220 Lab Interpretation (test code = Normal 08834-8) [facility] WITH [id number] 01:34:08 Test Item Value Reference Range Interpretation [...] RDW-SD (test code = 43.3 fL 39.0-49.9 32203-6) RDW-CV (test code = 13.0 % 12.0-15.5 788-0) PLT (test code = See_Comment [Automated 777-3) message] The sy stem which generated this result transmitted reference range : 166 - 358 10*3/ ?L. The reference r luca was not used to interpret this result as normal/abnormal . MPV (test code = 10.0 fL 9.5-12.9 46931-9) NRBC/100 WBC (test See_Comment [Automat ed code = 3132886850) message] The system which generated this result transmitted reference range : 0.0 - 10.0 /100 WBCs. The refer ence range was not u sed to interpret th is result as normal/abnormal . NRBC x10^3 (test code <0.01 See_Comment [Auto mated = 8322547263) message] The s ystem which generated this result transmitted reference range : 10*3/?L. The reference range was not used to interpret this result as normal/abnormal . GRAN MAT (NEUT) % 71.1 % (test code = 770-8) IMM GRAN % (test code 0.50 % = 8230773820) LYMPH % (test code = 18.8 % 736-9) MONO % (test code = 7.0 % 5905-5) EOS % (test code = 2.3 % 713-8) BASO % (test code = 0.3 % 706-2) GRAN MAT x10^3(ANC) 4.38 10*3/uL 1.88-7.09 (test code = 6159045654) IMM GRAN x10^3 (test 0.03 10*3/uL 0.00-0.06 code = 6565647633) LYMPH x10^3 (test code 1.16 10*3/uL 1.32-3.29 L = 731-0) MONO x10^3 (test code 0.43 10*3/uL 0.33-0.92 = 742-7) EOS x10^3 (test code = 0.14 10*3/uL 0.03-0.39 711-2) BASO x10^3 (test code <0.03 0.01-0.07 = 704-7) Lab Interpretation Abnormal (test code = 28260-6) [facility]. METABOLIC PANEL ([id number])2021-03-21 00:26:35 Test Item Value Reference Range Interpretation Comments NA (test code = 135 mmol/L 135-145 0086394724) K (test code = 4.6 mmol/L 3.5-5.0 5782506913) CL (test code = 104 mmol/L 98-108 0195559213) CO2 TOTAL (test code = 24 mmol/L 23-31 0014761193) AGAP (test code = 2-16 6625279686) BUN (test code = 17 mg/dL 7-23 4483097239) GLUCOSE (test code = 88 mg/dL 70-110 6472929039) CREATININE (test code = 0.70 mg/dL 0.50-1.04 5803273013) TOTAL BILI (test code = 1.0 mg/dL 0.1-1.9 3925539484) CALCIUM (test code = 8.8 mg/dL 8.6-10.6 0341927968) T PROTEIN (test code = 7.2 g/dL 6.3-8.2 8274019381) ALBUMIN (test code = 3.9 g/dL 3.5-5.0 7943175050) ALK PHOS (test code = 844 U/L 34-122 H 7636197762) ALTv (test code = 192 U/L 5-35 H 1742-6) AST(SGOT) (test code = 189 U/L 13-40 H 8690421386) eGFR (test code = mL/min/1.73m2 8127994847) KIM (test code = KIM) Association of [...] tests). Lab Interpretation Abnormal (test code = 14475-0) [facility]COLBY [id number] 23:26:58 Test Item Value Reference Interpretation Comments Range TROPONIN I (test 0.026 ng/mL See_Comment [Automated code = 4799571216) message] The system which generated this result [...] biotin. Lab Interpretation Normal (test code = 66865-6) [facility] 23:15:37 Test Item Value Reference Range Interpretation Comments LIPASE (test code = 6361170657) 214 U/L 0-220 Lab Interpretation (test code = Normal 42151-6) [facility] WITH [id number] 22:59:33 Test Item Value Reference Range Interpretation Comments WBC (test code = See_Comment [Automated 8390-2) message] The sy stem which generated this result transmitted reference range : 4.30 - 11.10 10*3/?L. The reference range was not used to interpret this result as normal/abnormal . RBC (test code = See_Comment L [Automated 129-8) message] The sy stem which generated this [...] RDW-SD (test code = 43.4 fL 39.0-49.9 40663-7) RDW-CV (test code = 13.0 % 12.0-15.5 788-0) PLT (test code = See_Comment [Automated 757-3) message] The sy stem which generated this result transmitted reference range : 166 - 358 10*3/ ?L. The reference r luca was not used to interpret this result as normal/abnormal . MPV (test code = 10.2 fL 9.5-12.9 28738-4) NRBC/100 WBC (test See_Comment [Automat ed code = 8788498993) message] The system which generated this result transmitted reference range : 0.0 - 10.0 /100 WBCs. The refer ence range was not u sed to interpret th is result as normal/abnormal . NRBC x10^3 (test code <0.01 See_Comment [Auto mated = 1988597210) message] The s ystem which generated this result transmitted reference range : 10*3/?L. The reference range was not used to interpret this result as normal/abnormal . GRAN MAT (NEUT) % 65.8 % (test code = 770-8) IMM GRAN % (test code 0.20 % = 8245726575) LYMPH % (test code = 22.8 % 736-9) MONO % (test code = 7.7 % 5905-5) EOS % (test code = 2.9 % 713-8) BASO % (test code = 0.6 % 706-2) GRAN MAT x10^3(ANC) 3.43 10*3/uL 1.88-7.09 (test code = 0143653603) IMM GRAN x10^3 (test <0.03 0.00-0.06 code = 3972714787) LYMPH x10^3 (test code 1.19 10*3/uL 1.32-3.29 L = 731-0) MONO x10^3 (test code 0.40 10*3/uL 0.33-0.92 = 742-7) EOS x10^3 (test code = 0.15 10*3/uL 0.03-0.39 711-2) BASO x10^3 (test code 0.03 10*3/uL 0.01-0.07 = 704-7) Lab Interpretation Abnormal (test code = 78737-2) [facility]12 20:12:57 Test Item Value Reference Range Interpretation Comments NA (test code = 137 mmol/L 135-145 [id number]) K (test code = 4.7 mmol/L 3.5-5.0 8995000954) CL (test code = 106 mmol/L 98-108 8539805133) CO2 TOTAL (test code = 23 mmol/L 23-31 7383303584) AGAP (test code = 2-16 4668076911) BUN (test code = 16 mg/dL 7-23 9891505963) GLUCOSE (test code = 116 mg/dL 70-110 H 4115017292) CREATININE (test code = 0.65 mg/dL 0.50-1.04 4002347785) TOTAL BILI (test code = 1.6 mg/dL 0.1-1.1 H 3821013831) CALCIUM (test code = 9.6 mg/dL 8.6-10.6 7103651461) T PROTEIN (test code = 8.3 g/dL 6.3-8.2 H 9435061822) ALBUMIN (test code = 4.5 g/dL 3.5-5.0 1990814720) ALK PHOS (test code = 650 U/L 34-122 H 8957895359) ALTv (test code = 146 U/L 5-35 H 1742-6) AST(SGOT) (test code = 174 U/L 13-40 H 0944161433) eGFR (test code = mL/min/1.73m2 8094887237) KIM (test code = KIM) Association of [...] tests). Lab Interpretation Abnormal (test code = 80840-2) [facility]12 Test Item Value Reference Range Interpretation Comments LIPASE (test code = 7066648600) 86 U/L 0-220 Lab Interpretation (test code = Normal 52842-0) [facility] WITH [id number] 20:02:15 Test Item Value Reference Range Interpretation [...] RDW-SD (test code = 46.4 fL 39.0-49.9 29158-8) RDW-CV (test code = 13.8 % 12.0-15.5 788-0) PLT (test code = See_Comment [Automated 777-3) message] The sy stem which generated this result transmitted reference range : 166 - 358 10*3/ ?L. The reference r luca was not used to interpret this result as normal/abnormal . MPV (test code = 9.8 fL 9.5-12.9 69511-9) NRBC/100 WBC (test See_Comment [Automat ed code = 4141053291) message] The system which generated this result transmitted reference range : 0.0 - 10.0 /100 WBCs. The refer ence range was not u sed to interpret th is result as normal/abnormal . NRBC x10^3 (test code <0.01 See_Comment [Auto mated = 7026458083) message] The s ystem which generated this result transmitted reference range : 10*3/?L. The reference range was not used to interpret this result as normal/abnormal . GRAN MAT (NEUT) % 69.4 % (test code = 770-8) IMM GRAN % (test code 0.40 % = 2831314032) LYMPH % (test code = 20.4 % 736-9) MONO % (test code = 7.2 % 5905-5) EOS % (test code = 2.0 % 713-8) BASO % (test code = 0.6 % 706-2) GRAN MAT x10^3(ANC) 3.77 10*3/uL 1.88-7.09 (test code = 3570991181) IMM GRAN x10^3 (test <0.03 0.00-0.06 code = 6145365320) LYMPH x10^3 (test code 1.11 10*3/uL 1.32-3.29 L = 731-0) MONO x10^3 (test code 0.39 10*3/uL 0.33-0.92 = 742-7) EOS x10^3 (test code = 0.11 10*3/uL 0.03-0.39 711-2) BASO x10^3 (test code 0.03 10*3/uL 0.01-0.07 = 704-7) Lab Interpretation Abnormal (test code = 99658-0) [facility]OLIC PANEL (42051)2021-01-18 04:36:17 Test Item Value Reference Range Interpretation Comments NA (test code = 137 mmol/L 135-145 4281219448) K (test code = 4.2 mmol/L 3.5-5.0 1803412242) CL (test code = 103 mmol/L 98-108 9215741070) CO2 TOTAL (test code = 27 mmol/L 23-31 5083985118) AGAP (test code = 2-16 0523259115) BUN (test code = 13 mg/dL 7-23 8582325677) GLUCOSE (test code = 100 mg/dL 70-110 9428686725) CREATININE (test code = 0.73 mg/dL 0.50-1.04 1982807852) TOTAL BILI (test code = 1.4 mg/dL 0.1-1.1 H 1598651218) CALCIUM (test code = 9.1 mg/dL 8.6-10.6 9501068481) T PROTEIN (test code = 7.2 g/dL 6.3-8.2 9025459465) ALBUMIN (test code = 4.0 g/dL 3.5-5.0 0191797839) ALK PHOS (test code = 585 U/L 34-122 H 8105651181) ALTv (test code = 78 U/L 5-35 H 1742-6) AST(SGOT) (test code = 73 U/L 13-40 H 2983143376) eGFR (test code = mL/min/1.73m2 7007871761) KIM (test code = KIM) Association of [...] tests). Lab Interpretation Abnormal (test code = 19854-0) [facility] 04:02:39 Test Item Value Reference Range Interpretation Comments LIPASE (test code = 3353291056) 114 U/L 0-220 Lab Interpretation (test code = Normal 35868-6) [facility] WITH [id number] 03:49:11 Test Item Value Reference Range Interpretation [...] (test code = 50.6 fL 39.0-49.9 H 84897-2) RDW-CV (test code = 14.8 % 12.0-15.5 788-0) PLT (test code = See_Comment [Automated 777-3) message] The sy stem which generated this result transmitted reference range : 166 - 358 10*3/ ?L. The reference r luca was not used to interpret this result as normal/abnormal . MPV (test code = 10.7 fL 9.5-12.9 59470-4) NRBC/100 WBC (test See_Comment [Automat ed code = 2075605281) message] The system which generated this result transmitted reference range : 0.0 - 10.0 /100 WBCs. The refer ence range was not u sed to interpret th is result as normal/abnormal . NRBC x10^3 (test code <0.01 See_Comment [Auto mated = 1280489135) message] The s ystem which generated this result transmitted reference range : 10*3/?L. The reference range was not used to interpret this result as normal/abnormal . GRAN MAT (NEUT) % 66.1 % (test code = 770-8) IMM GRAN % (test code 0.20 % = 3359325178) LYMPH % (test code = 23.5 % 736-9) MONO % (test code = 8.1 % 5905-5) EOS % (test code = 1.7 % 713-8) BASO % (test code = 0.4 % 706-2) GRAN MAT x10^3(ANC) 3.49 10*3/uL 1.88-7.09 (test code = 0345130051) IMM GRAN x10^3 (test <0.03 0.00-0.06 code = 4833407703) LYMPH x10^3 (test code 1.24 10*3/uL 1.32-3.29 L = 731-0) MONO x10^3 (test code 0.43 10*3/uL 0.33-0.92 = 742-7) EOS x10^3 (test code = 0.09 10*3/uL 0.03-0.39 711-2) BASO x10^3 (test code <0.03 0.01-0.07 = 704-7) Lab Interpretation Abnormal (test code = 33403-8) [facility] (40610) (ALB,T.PRO,BILI T,BU/BC,ALT,AST,ALK PHOS)2020-12-30 18:48:24 Test Item Value Reference Range Interpretation Comments TOTAL BILI (test code = 7223744748) 2.4 mg/dL 0.1-1.1 H BILI UNCON (test code = 8479988451) 0.5 mg/dL 0.1-1.1 BILI CONJ (test code = 3600388449) 0.0 mg/dL 0.0-0.3 T PROTEIN (test code = 9086868632) 9.8 g/dL 6.3-8.2 H ALBUMIN (test code = 5864266205) 4.9 g/dL 3.5-5.0 ALK PHOS (test code = 1602391866) 1181 U/L 34-122 H ALTv (test code = 1742-6) 271 U/L 5-35 H AST(SGOT) (test code = 3876139128) 192 U/L 13-40 H Lab Interpretation (test code = Abnormal 24839-5) [facility] (00269) (ALB,T.PRO,BILI T,BU/BC,ALT,AST,ALK PHOS)2020-12-30 18:48:24 Test Item Value Reference Range Interpretation Comments TOTAL BILI (test code = 7768921163) 2.4 mg/dL 0.1-1.1 H BILI UNCON (test code = 5418861407) 0.5 mg/dL 0.1-1.1 BILI CONJ (test code = 7911415308) 0.0 mg/dL 0.0-0.3 T PROTEIN (test code = 0725323457) 9.8 g/dL 6.3-8.2 H ALBUMIN (test code = 6110120049) 4.9 g/dL 3.5-5.0 ALK PHOS (test code = 9100692880) 1181 U/L 34-122 H ALTv (test code = 1742-6) 271 U/L 5-35 H AST(SGOT) (test code = 6977158643) 192 U/L 13-40 H Lab Interpretation (test code = Abnormal 85476-7) [facility] (NA, K, CL, CO2, GLUCOSE, BUN, CREATININE, CA)2020-12-30 18:48:02 Test Item Value Reference Range Interpretation Comments NA (test code = 138 mmol/L 135-145 5939102184) K (test code = 4.7 mmol/L 3.5-5.0 2189570701) CL (test code = 106 mmol/L 98-108 5267669381) CO2 TOTAL (test code = 20 mmol/L 23-31 L 3006165979) AGAP (test code = 2-16 4252712645) BUN (test code = 19 mg/dL 7-23 6027944652) GLUCOSE (test code = 134 mg/dL 70-110 H 8793571746) CREATININE (test code = 0.62 mg/dL 0.50-1.04 6148491981) CALCIUM (test code = 10.1 mg/dL 8.6-10.6 3381909511) eGFR (test code = mL/min/1.73m2 5220380876) KIM (test code = KMI) Association of Glomerular Filtration Rate (GFR) and [...] tests). Lab Interpretation Abnormal (test code = 43552-2) [facility] 18:48:02 Test Item Value Reference Range Interpretation Comments LIPASE (test code = 9870142444) 292 U/L 0-220 H Lab Interpretation (test code = Abnormal 79452-8) [facility] (NA, K, CL, CO2, GLUCOSE, BUN, CREATININE, CA)2020-12-30 18:48:02 Test Item Value Reference Range Interpretation Comments NA (test code = 138 mmol/L 135-145 4602312106) K (test code = 4.7 mmol/L 3.5-5.0 9031565247) CL (test code = 106 mmol/L 98-108 2499306079) CO2 TOTAL (test code = 20 mmol/L 23-31 L 4945612434) AGAP (test code = 2-16 3934374913) BUN (test code = 19 mg/dL 7-23 8784787264) GLUCOSE (test code = 134 mg/dL 70-110 H 1285198457) CREATININE (test code = 0.62 mg/dL 0.50-1.04 1854380285) CALCIUM (test code = 10.1 mg/dL 8.6-10.6 0816108967) eGFR (test code = mL/min/1.73m2 0213136488) KIM (test code = KIM) Association of [...] tests). Lab Interpretation Abnormal (test code = 30784-6) [facility] 18:48:02 Test Item Value Reference Range Interpretation Comments LIPASE (test code = 8209498852) 292 U/L 0-220 H Lab Interpretation (test code = Abnormal 33545-8) [facility] WITH [id number] 18:39:23 Test Item Value Reference Range Interpretation Comments WBC (test code = See_Comment [Automated 0090-2) message] The sy stem which generated this result transmitted reference range : 4.30 - 11.10 10*3/?L. The reference range was not used to interpret this result as normal/abnormal . RBC (test code = See_Comment [Automated 010-8) message] The sy stem which generated this [...] RDW-SD (test code = 48.4 fL 39.0-49.9 88768-2) RDW-CV (test code = 14.6 % 12.0-15.5 788-0) PLT (test code = See_Comment [Automated 777-3) message] The sy stem which generated this result transmitted reference range : 166 - 358 10*3/ ?L. The reference r luca was not used to interpret this result as normal/abnormal . MPV (test code = 10.1 fL 9.5-12.9 57911-7) NRBC/100 WBC (test See_Comment [Automat ed code = 6076778202) message] The system which generated this result transmitted reference range : 0.0 - 10.0 /100 WBCs. The refer ence range was not u sed to interpret th is result as normal/abnormal . NRBC x10^3 (test code <0.01 See_Comment [Auto mated = 2049737808) message] The s ystem which generated this result transmitted reference range : 10*3/?L. The reference range was not used to interpret this result as normal/abnormal . GRAN MAT (NEUT) % 75.2 % (test code = 770-8) IMM GRAN % (test code 0.60 % = 9162846574) LYMPH % (test code = 17.0 % 736-9) MONO % (test code = 5.8 % 5905-5) EOS % (test code = 0.9 % 713-8) BASO % (test code = 0.5 % 706-2) GRAN MAT x10^3(ANC) 8.11 10*3/uL 1.88-7.09 H (test code = 2861282239) IMM GRAN x10^3 (test 0.06 10*3/uL 0.00-0.06 code = 9216278250) LYMPH x10^3 (test code 1.83 10*3/uL 1.32-3.29 = 731-0) MONO x10^3 (test code 0.62 10*3/uL 0.33-0.92 = 742-7) EOS x10^3 (test code = 0.10 10*3/uL 0.03-0.39 711-2) BASO x10^3 (test code 0.05 10*3/uL 0.01-0.07 = 704-7) Lab Interpretation Abnormal (test code = 26680-1) [facility] WITH [id number] 18:39:23 Test Item Value Reference Range Interpretation [...] RDW-SD (test code = 48.4 fL 39.0-49.9 33264-1) RDW-CV (test code = 14.6 % 12.0-15.5 788-0) PLT (test code = See_Comment [Automated 777-3) message] The sy stem which generated this result transmitted reference range : 166 - 358 10*3/ ?L. The reference r luca was not used to interpret this result as normal/abnormal . MPV (test code = 10.1 fL 9.5-12.9 05637-8) NRBC/100 WBC (test See_Comment [Automat ed code = 1905245362) message] The system which generated this result transmitted reference range : 0.0 - 10.0 /100 WBCs. The refer ence range was not u sed to interpret th is result as normal/abnormal . NRBC x10^3 (test code <0.01 See_Comment [Auto mated = 7241485939) message] The s ystem which generated this result transmitted reference range : 10*3/?L. The reference range was not used to interpret this result as normal/abnormal . GRAN MAT (NEUT) % 75.2 % (test code = 770-8) IMM GRAN % (test code 0.60 % = 8995350436) LYMPH % (test code = 17.0 % 736-9) MONO % (test code = 5.8 % 5905-5) EOS % (test code = 0.9 % 713-8) BASO % (test code = 0.5 % 706-2) GRAN MAT x10^3(ANC) 8.11 10*3/uL 1.88-7.09 H (test code = 9536041953) IMM GRAN x10^3 (test 0.06 10*3/uL 0.00-0.06 code = 9071605971) LYMPH x10^3 (test code 1.83 10*3/uL 1.32-3.29 = 731-0) MONO x10^3 (test code 0.62 10*3/uL 0.33-0.92 = 742-7) EOS x10^3 (test code = 0.10 10*3/uL 0.03-0.39 711-2) BASO x10^3 (test code 0.05 10*3/uL 0.01-0.07 = 704-7) Lab Interpretation Abnormal (test code = 29783-0) [facility] PELVIS COMPLETE WITH [id number] 23:13:25Focal echogenicity in the left ovary measuring 3 mm. This maybe from a previous hemorrhagic cyst or less likely dermoid.2. Nabothian cysts.3. Otherwise unremarkable pelvic ultrasound. RL: 5611 END OF REPORT Ordering Physician: VIRA WASHBURN Clinical Indication: PMB Additional Clinical Information: Technical Quality: Good Comparison: CT scan from 07/07/2020 Technique: Pelvic ultrasound Findings: Transabdominal exam shows no bladder wall thickening. Uterus and0.3 x 3.4 x 3.6 cm. Endometrial thickness is 2 mm. Neither ovary could be seen therefore t ransvaginal exam was performed. There is a nabothian cyst. The right ovary measures 0.9 x 0.9 x 1.2 cm. Left ovary measures 1.2 x 1.3 x 1.2 cm. There is an echogenic structurewithin the left ovary thatmay be a focal calcification measuring 3 mm. Color spectral Doppler flow is confirmed within both ovaries. [facility], Radiant Results Inft User - 12/23/2020 6:14 PM CDT Ordering Physician: VIRA WASHBURNClinical Indication: PMB Additional Clinical Information:Technical Quality: GoodComparison: CT scan from 07/07/2020Technique: Pelvic ultrasoundFindings: Transabdominal exam shows no bladder wall thickening. Uterus and0.3 x 3.4 x 3.6 cm. Endometrialthickness is 2 mm.Neither ovary could be seen therefore transvaginal exam was performed.There is a nabothian cyst.The right ovary measures 0.9 x 0.9 x 1.2 cm.Left ovary measures 1.2 x 1.3 x 1.2 cm. There is an echogenic structurewithin the left ovary that may be a focal calcification measuring 3 mm.Color spectral Doppler flow is confirmed within both ovaries.IMPRESSIONFocal echogenicity in the left ovary measuring 3 mm. This maybe from a previous hemorrhagic cyst or less likely dermoid.2. Nabothian c ysts.3. Otherwise unremarkable pelvic ultrasound.RL: 5611END OF REPORT [facility] Whole [id number] 22:23:55 Test Item Value Reference Range Interpretation Comments LACTIC ACID (test code = 1.49 mmol/L 0.50-2.20 9818593437) Lab Interpretation (test code = Normal 89058-6) [facility] W [id number] 22:20:59 1. ?No acute intra-abdominal abnormality. 2. ?Gastric wall thickening is nonspecific but can be seen with gastritis. 3. ?Postsurgical changes of cholecystectomy and appendectomy. Pneumobiliaversus nonradiopaque biliary stents are unchanged dating back to 2016. 4. ?Hepatic steatosis and splenomegaly. The 0.9 cm cystic hypodensity atthe uncinate process is slightly smaller from 03/26/2020. This wasevaluated [facility], with resultssuggestive of [...] CT abdomen pelvis dated 07/07/2020, 03/26/2020, 12/18/2019.Abdominal ultrasounddated 10/11/2020. FINDINGS: LOWER THORAX: Evaluation of the lungs is greatly limited by excessiverespiratory artifact. The heart appears at the upper limits of normal insize. LIVER: The liver is normal in size and contour. Subcentimeter hypodensitieswithin the left [...] PANCREAS: A 0.9 cm cystic hypodensity at the uncinate process is slightlysmaller compared 03/26/2020 (2:47). No ductal dilatation is visualized. ADRENAL GLANDS: Nodular thickening of the left adrenal gland is notedwithout discrete masses. KIDNEYS: No hydronephrosis, stones, or solid masses are visualized. Cystichypodensities within the right kidney are unchanged and likely representsimple cysts. PELVIS/BLADDER: The bladder is partially collapsed,which limitsevaluation. The uterus and ovaries grossly unremarkable. Essure coils areseen. GI TRACT:Mild wall thickening of the distal stomach is [...] contrast.Coronal and sagittal reconstructions were obtained. COMPARISON: CTabdomen pelvis dated 07/07/2020, 03/26/2020, 12/18/2019.Abdominal ultrasound dated 10/11/2020.FINDINGS:LOWER THORAX: Evaluation of the lungs is greatly limited by excessiverespiratory artifact. The heart appears at the upper limits of normal insize.LIVER: The liver is normal in size and contour. Subcentimeter hypodensitieswithin the left hepatic lobe are too small to characterize and are grosslyunchangedfrom prior examinations. The hepatic parenchyma is diffuselyhypoattenuating. GALLBLADDER AND BILIARYTREE: Postsurgical changes of cholecystectomy arenoted. Intra and [...] notedwithout discrete masses.KIDNEYS: No hydronephrosis, stones, or solid masses are visualized. Cystichypodensities within the right kidney are unchanged and likely representsimple cysts.PELVIS/BLADDER: The bladder is partially collapsed, which limitsevaluation. The uterusand ovaries grossly unremarkable. Essure coils areseen.GI TRACT: Mild wall thickening of the distal stomach is more prominentcompared to 07/07/2020. Postsurgical changes involving the terminal ileumand appendix are again seen.PERITONEUM AND RETROPERITONEUM: No intra- abdominal free air or fluidcollection is visualized. LYMPH NODES: Subcentimeter mesenteric and retroperitoneal lymph nodes arenonspecificand likely reactive.VESSELS: Mild atherosclerotic calcifications affect the abdominal aorta.BONES AND SOFT TISSUES: No suspicious lytic or sclerotic bony lesions arepresent. Spondylotic changes are manifested by endplate sclerosis, vacuumphenomenon, and facet arthropathy.IMPRESSION1. No acute intra-abdominal abnormality.2. Gastric wall thickening is nonspecific but can be seen with gastritis.3. Postsurgical changes of cholecystectomy and appendectomy. Pneumobiliaversus nonradiopaque biliary stents are unchanged dating back to 2016.4. Hepatic steatosis and splenomegaly. The 0.9 cm cystic hypodensityatthe uncinate process is slightly smaller from 03/26/2020. This wasevaluated by MR abdomen at [facility] on 09[facility]08[facility], with resultssuggestive of pseudocyst versus side branch IPMN.PreliminaryReport Dictated by Resident: Chester Rivera, Dwight Akers MD., have reviewed this study and agree with the abovereport.[facility] 20:42:19 Test Item Value Reference Range Interpretation Comments APPEARANCE (test code = Clear Clear 3457094134) COLOR (test code = Romelia Yellow A 2514853336) PH (test code = 4.8-8.0 2578954753) SP GRAVITY (test code = 1.003-1.030 9563888254) GLU U QUAL (test code = Normal Normal 6324650331) BLOOD (test code = Negative Negative 7531289518) KETONES (test code = Negative Negative 8396276845) PROTEIN (test code = 30 mg/dL Negative A 2887-8) UROBILIN (test code = 4.0 mg/dL Normal A 9754315800) BILIRUBIN (test code = 2 mg/dL Negative A 4623158697) NITRITE (test code = Negative Negative 8147437585) LEUK NICHOLE (test code = Negative Negative 6245640377) RBC/HPF (test code = See_Comment [Autom ated message] 6635784511) The system [employer] generated this result transmit gulshan reference range : 0 - 3 HPF. The refe rence range was not u sed to interpret th is result as normal/abnormal . WBC/HPF (test code = See_Comment [Autom ated message] 3362651390) The system [employer] generated this result transmit gulshan reference range : 0 - 5 HPF. The refe rence range was not u sed to interpret th is result as normal/abnormal . BACTERIA (test code = Few Negative A 7659562184) MUCOUS (test code = Slight Negative LPF A 8761236916) SQ EPITH (test code = HPF 7496648445) HYAL CAST (test code = See_Comment [Aut omated message] 1268701206) The system [employer] generated this result transmit gulshan reference range : <=2 LPF. The refere nce range was not u sed to interpret th is result as normal/abnormal . Lab Interpretation (test Abnormal code = 80242-7) [facility]. METABOLIC PANEL (07345)2020-12-05 20:38:13 Test Item Value Reference Range Interpretation Comments NA (test code = 139 mmol/L 135-145 5195860302) K (test code = 3.6 mmol/L 3.5-5.0 9141195426) CL (test code = 106 mmol/L 98-108 6086011309) CO2 TOTAL (test code = 21 mmol/L 23-31 L 6691855994) AGAP (test code = 2-16 2547637986) BUN (test code = 12 mg/dL 7-23 3809150558) GLUCOSE (test code = 91 mg/dL 70-110 1662483359) CREATININE (test code = 0.53 mg/dL 0.50-1.04 8566243654) TOTAL BILI (test code = 3.6 mg/dL 0.1-1.1 H 3221898032) CALCIUM (test code = 9.8 mg/dL 8.6-10.6 6791891541) T PROTEIN (test code = 9.1 g/dL 6.3-8.2 H 2365265323) ALBUMIN (test code = 4.6 g/dL 3.5-5.0 0180589237) ALK PHOS (test code = 1229 U/L 34-122 H 9268067614) ALTv (test code = 311 U/L 5-35 H 1742-6) AST(SGOT) (test code = 280 U/L 13-40 H 7950436537) eGFR (test code = mL/min/1.73m2 2682398973) KIM (test code = KIM) Association of [...] tests). Lab Interpretation Abnormal (test code = 58017-2) [facility] 20:37:32 Test Item Value Reference Range Interpretation Comments LIPASE (test code = 1713237494) 168 U/L 0-220 Lab Interpretation (test code = Normal 08661-7) [facility] WITH [id number] 20:25:55 Test Item Value Reference Range Interpretation Comments WBC (test code = See_Comment [Automated 8490-2) message] The sy stem which generated this [...] RDW-SD (test code = 49.3 fL 39.0-49.9 84773-1) RDW-CV (test code = 15.0 % 12.0-15.5 788-0) PLT (test code = See_Comment [Automated 777-3) message] The sy stem which generated this result transmitted reference range : 166 - 358 10*3/ ?L. The reference r luca was not used to interpret this result as normal/abnormal . MPV (test code = 10.2 fL 9.5-12.9 09528-0) NRBC/100 WBC (test See_Comment [Automat ed code = 2998800161) message] The system which generated this result transmitted reference range : 0.0 - 10.0 /100 WBCs. The refer ence range was not u sed to interpret th is result as normal/abnormal . NRBC x10^3 (test code <0.01 See_Comment [Auto mated = 7375614991) message] The s ystem which generated this result transmitted reference range : 10*3/?L. The reference range was not used to interpret this result as normal/abnormal . GRAN MAT (NEUT) % 68.6 % (test code = 770-8) IMM GRAN % (test code 0.40 % = 3304480678) LYMPH % (test code = 21.2 % 736-9) MONO % (test code = 7.8 % 5905-5) EOS % (test code = 1.6 % 713-8) BASO % (test code = 0.4 % 706-2) GRAN MAT x10^3(ANC) 3.50 10*3/uL 1.88-7.09 (test code = 0822872922) IMM GRAN x10^3 (test <0.03 0.00-0.06 code = 6717801061) LYMPH x10^3 (test code 1.08 10*3/uL 1.32-3.29 L = 731-0) MONO x10^3 (test code 0.40 10*3/uL 0.33-0.92 = 742-7) EOS x10^3 (test code = 0.08 10*3/uL 0.03-0.39 711-2) BASO x10^3 (test code <0.03 0.01-0.07 = 704-7) Lab Interpretation Abnormal (test code = 61197-0) [facility] HospitalLIPID PANEL (08548)(TOTAL CHOLESTEROL, TRIGLYCERIDES, HDL)2020-10-12 16:46:34 Test Item Value Reference Range Interpretation Comments CHOL (test code = 307 mg/dL 120-200 H 2073840191) HDL (test code = 93 mg/dL >50 2455899110) HDLC RATIO (test code = See_Comment [Au tomated message] 1297195353) The system [employer] generated this result transmit gulshan reference range : <=4.5. The refe rence range was not u sed to interpret th is result as normal/abnormal . TRIG (test code = 131 mg/dL 30-170 2317790896) LDL CHOL (test code = 188 mg/dL See_Comment H [Auto mated message] 81060-4) The system [employer] generated this result transmit gulshan reference range : <=160. The refe rence range was not u sed to interpret th is result as normal/abnormal . VLDL (test code = 26 mg/dL 5-60 2304692687) Lab Interpretation (test Abnormal code = 63047-7) [facility] HospitalMagnesium [id number] 09:02:26 Test Item Value Reference Range Interpretation Comments MAGNESIUM (test code = 4247556505) 1.9 mg/dL 1.7-2.4 Lab Interpretation (test code = Normal 42766-8) [facility]HEPAT[facility] FUNCTION PANEL (34988) (ALB,T.PRO,BILI T,BU/BC,ALT,AST,ALK PHOS)2020-10-12 09:02:26 Test Item Value Reference Range Interpretation Comments TOTAL BILI (test code = 9808529571) 1.0 mg/dL 0.1-1.1 BILI UNCON (test code = 4493644809) 0.5 mg/dL 0.1-1.1 BILI CONJ (test code = 8279396809) 0.0 mg/dL 0.0-0.3 T PROTEIN (test code = 4720459246) 7.8 g/dL 6.3-8.2 ALBUMIN (test code = 8479607725) 4.3 g/dL 3.5-5.0 ALK PHOS (test code = 0128710958) 608 U/L 34-122 H ALTv (test code = 1742-6) 156 U/L 5-35 H AST(SGOT) (test code = 4944817744) 136 U/L 13-40 H Lab Interpretation (test code = Abnormal 20451-1) [facility] HospitalProthrombin Time / [id number] 08:48:50 Test Item Value Reference Range Interpretation Comments PROTIME PATIENT (test See_Comment [Auto mated message] code = 5964-2) The system [employer] generated this result transmitted ref erence range: 10.1 - 1 2.6 Seconds. The re ference range was not u sed to interpret this result as normal/abnor mal. INR (test code = 6301-6) Nor mal INR <1.1; Warfarin Therap eutic range 2.0 to 3. 0 or 2.5 to 3.5, dep ending upon the indica tions. Lab Interpretation (test Normal code = 22998-0) [facility] 08:48:50 Test Item Value Reference Range Interpretation Comments APTT Patient (test code See_Comment H [Au tomated message] = 3173-2) The system [employer] h generated this result transmitted ref erence range: 26 - 36 Seconds. The reference range was not used to int erpret this result as normal/abnormal . Lab Interpretation (test Abnormal code = 39762-4) [facility] with [id number] 08:31:22 Test Item Value Reference Range Interpretation [...] RDW-SD (test code = 41.3 fL 39.0-49.9 20841-4) RDW-CV (test code = 12.6 % 12.0-15.5 788-0) PLT (test code = See_Comment [Automated 777-3) message] The sy stem which generated this result transmitted reference range : 166 - 358 10*3/ ?L. The reference r luca was not used to interpret this result as normal/abnormal . MPV (test code = 9.1 fL 9.5-12.9 L 31007-0) NRBC/100 WBC (test See_Comment [Automat ed code = 4772404732) message] The system which generated this result transmitted reference range : 0.0 - 10.0 /100 WBCs. The refer ence range was not u sed to interpret th is result as normal/abnormal . NRBC x10^3 (test code <0.01 See_Comment [Auto mated = 7419286710) message] The s ystem which generated this result transmitted reference range : 10*3/?L. The reference range was not used to interpret this result as normal/abnormal . GRAN MAT (NEUT) % 62.6 % (test code = 770-8) IMM GRAN % (test code 0.40 % = 4032945928) LYMPH % (test code = 26.8 % 736-9) MONO % (test code = 7.7 % 5905-5) EOS % (test code = 2.1 % 713-8) BASO % (test code = 0.4 % 706-2) GRAN MAT x10^3(ANC) 3.32 10*3/uL 1.88-7.09 (test code = 2920587833) IMM GRAN x10^3 (test <0.03 0.00-0.06 code = 9639603961) LYMPH x10^3 (test code 1.42 10*3/uL 1.32-3.29 = 731-0) MONO x10^3 (test code 0.41 10*3/uL 0.33-0.92 = 742-7) EOS x10^3 (test code = 0.11 10*3/uL 0.03-0.39 711-2) BASO x10^3 (test code <0.03 0.01-0.07 = 704-7) Lab Interpretation Abnormal (test code = 23494-7) [facility] METABOLIC PANEL (NA, K, CL, CO2, GLUCOSE, BUN, CREATININE, CA)2020-10-12 04:16:15 Test Item Value Reference Range Interpretation Comments NA (test code = 138 mmol/L 135-145 9474502222) K (test code = 4.1 mmol/L 3.5-5.0 2534797416) CL (test code = 104 mmol/L 98-108 3843683093) CO2 TOTAL (test code 23 mmol/L 23-31 = 2786215435) AGAP (test code = 2-16 0549757972) BUN (test code = 16 mg/dL 7-23 2422255586) GLUCOSE (test code = 83 mg/dL 70-110 4178811908) CREATININE (test code 0.63 mg/dL 0.50-1.04 = 1883562602) CALCIUM (test code = 9.4 mg/dL 8.6-10.6 7463375324) eGFR (test code = mL/min/1.73m2 9017314826) KIM (test code = KIM) Association of [...] or urine or abnormalities in imaging tests). [facility] (66848) (ALB,T.PRO,BILI T,BU/BC,ALT,AST,ALK PHOS)2020-10-12 04:16:15 Test Item Value Reference Range Interpretation Comments TOTAL BILI (test code = 8217908034) 1.1 mg/dL 0.1-1.1 BILI UNCON (test code = 7298229030) 0.5 mg/dL 0.1-1.1 BILI CONJ (test code = 5419199556) 0.0 mg/dL 0.0-0.3 T PROTEIN (test code = 3654211370) 8.5 g/dL 6.3-8.2 H ALBUMIN (test code = 8431867561) 4.6 g/dL 3.5-5.0 ALK PHOS (test code = 5359364910) 679 U/L 34-122 H ALTv (test code = 1742-6) 168 U/L 5-35 H AST(SGOT) (test code = 8499578625) 143 U/L 13-40 H Lab Interpretation (test code = Abnormal 63357-4) [facility]COVID[facility] (ID NOW RAPID TESTING)2020-10-11 16:36:41 Test Item Value Reference Range Interpretation Comments SARS-CoV-2 Rapid ID NOW Not Detected Not Detected (test code = 18681-6) KIM (test code = KIM) ID NOW COVID-19 Assay is an isothermal nucleic acid amplification test intended for the qualitative detection of nucleic acid from SARS-CoV-2 viral RNA in nasopharyngeal (CHIP UNLOADER) specimens. It is used under Emergency Use [...] indicated. Lab Interpretation Normal (test code = 68024-3) [facility] HospitalUS GALL [id number] 15:28:53HISTORY: Rule out biliary duct stenosis. COMPARISON: [...] ductstenosis cannot be adequately evaluated by this study.[facility], Radiant Results Inft User - 10/11/2020 [...] ductstenosis cannot be adequately evaluated by this study.[facility] Troponin [id number] 14:35:05 Test Item Value Reference Interpretation Comments Range TROPONIN I (test 0.004 ng/mL See_Comment [Automated code = 6591330107) message] The system which generated this result [...] biotin. Lab Interpretation Normal (test code = 37528-0) [facility] (ALB, T.PRO, BILI T, BU/BC, ALT, AST, ALK PHOS)2020-10-11 14:24:25 Test Item Value Reference Range Interpretation Comments TOTAL BILI (test code = 4433629505) 0.9 mg/dL 0.1-1.1 BILI UNCON (test code = 5942868940) 0.3 mg/dL 0.1-1.1 BILI CONJ (test code = 6098939742) 0.0 mg/dL 0.0-0.3 T PROTEIN (test code = 1319960360) 9.0 g/dL 6.3-8.2 H ALBUMIN (test code = 0406567151) 4.8 g/dL 3.5-5.0 ALK PHOS (test code = 7111824769) 752 U/L 34-122 H ALTv (test code = 1742-6) 164 U/L 5-35 H AST(SGOT) (test code = 9397758641) 166 U/L 13-40 H Lab Interpretation (test code = Abnormal 30877-7) [facility] Metabolic Panel (NA, K, CL, CO2, GLUCOSE, BUN, CREATININE, CA)2020-10-11 14:24:05 Test Item Value Reference Range Interpretation Comments NA (test code = 139 mmol/L 135-145 5658946256) K (test code = 4.3 mmol/L 3.5-5.0 2880530256) CL (test code = 106 mmol/L 98-108 5355496267) CO2 TOTAL (test code = 22 mmol/L 23-31 L 4614321536) AGAP (test code = 2-16 3717541865) BUN (test code = 15 mg/dL 7-23 4563102089) GLUCOSE (test code = 106 mg/dL 70-110 0061800991) CREATININE (test code = 0.63 mg/dL 0.50-1.04 6143028561) CALCIUM (test code = 10.0 mg/dL 8.6-10.6 9929079325) eGFR (test code = mL/min/1.73m2 2959431516) KIM (test code = KIM) Association of [...] tests). Lab Interpretation Abnormal (test code = 13399-5) [facility] HospitalLipase [id number] 14:24:05 Test Item Value Reference Range Interpretation Comments LIPASE (test code = 6704201798) 169 U/L 0-220 Lab Interpretation (test code = Normal 42718-4) [facility] HospitalUrinalysis2021-06-29 14:23:55 Test Item Value Reference Range Interpretation Comments APPEARANCE (test code = Hazy Clear A 4088020517) COLOR (test code = Yellow Yellow 6476845107) PH (test code = 4.8-8.0 8939217057) SP GRAVITY (test code = 1.003-1.030 0501733010) GLU U QUAL (test code = Normal Normal 3956185654) BLOOD (test code = Negative Negative 6762000644) KETONES (test code = Negative Negative 1434968397) PROTEIN (test code = Negative Negative 2887-8) UROBILIN (test code = Normal Normal 4568531804) BILIRUBIN (test code = Negative Negative 5587840882) NITRITE (test code = Negative Negative 5044441367) LEUK NICHOLE (test code = Negative Negative 4120825700) RBC/HPF (test code = See_Comment [Autom ated message] 4095891891) The system [employer] generated this result transmitted ref erence range: 0 - 3 HP F. The reference range was not used to int erpret this result as normal/abnormal . WBC/HPF (test code = See_Comment [Autom ated message] 5975483069) The system [employer] generated this result transmitted ref erence range: 0 - 5 HP F. The reference range was not used to int erpret this result as normal/abnormal . BACTERIA (test code = Few Negative A 5746999345) AMORPHOUS (test code = Rare Rare HPF 2067410189) SQ EPITH (test code = HPF 8383664283) HYAL CAST (test code = See_Comment H [Aut omated message] 0672738706) The system [employer] generated this result transmitted ref erence range: <=2 LPF. The reference range was not used to int erpret this result as normal/abnormal . Lab Interpretation (test Abnormal code = 57384-8) [facility] with [id number] 14:14:01 Test Item Value Reference Range Interpretation Comments WBC (test code = See_Comment [Automated message] 6690-2) The system [employer] generated this result transmitted ref erence range: 4.30 - 1 1.10 10*3/?L. The re ference range was not u sed to interpret this result as normal/abnor mal. RBC (test code = See_Comment [Automated message] 789-8) The system [employer] generated this result transmitted ref erence range: [...] RDW-SD (test code 40.1 fL 39.0-49.9 = 29874-8) RDW-CV (test code 12.3 % 12.0-15.5 = 788-0) PLT (test code = See_Comment [Automated message] 777-3) The system [employer] h generated this result transmitted ref erence range: 166 - 35 8 10*3/?L. The re ference range was not u sed to interpret this result as normal/abnor mal. MPV (test code = 9.7 fL 9.5-12.9 29847-0) NRBC/100 WBC (test See_Comment [Automat ed message] code = 7541267000) The syste m which generated this result transmitted ref erence range: 0.0 - 10 .0 /100 WBCs. The refer ence range was not u sed to interpret this result as normal/abnor mal. NRBC x10^3 (test <0.01 See_Comment [Automated message] code = 1397328771) The syste m which generated this result transmitted ref erence range: 10*3/?L. The reference range was not used to interpr et this result as normal/abnormal . GRAN MAT (NEUT) % 63.7 % (test code = 770-8) IMM GRAN % (test 0.40 % code = 9202791017) LYMPH % (test code 26.2 % = 736-9) MONO % (test code 7.6 % = 5905-5) EOS % (test code = 1.7 % 713-8) BASO % (test code 0.4 % = 706-2) GRAN MAT 3.45 10*3/uL 1.88-7.09 x10^3(ANC) (test code = 0091468333) IMM GRAN x10^3 <0.03 0.00-0.06 (test code = 5639578807) LYMPH x10^3 (test 1.42 10*3/uL 1.32-3.29 code = 731-0) MONO x10^3 (test 0.41 10*3/uL 0.33-0.92 code = 742-7) EOS x10^3 (test 0.09 10*3/uL 0.03-0.39 code = 711-2) BASO x10^3 (test <0.03 0.01-0.07 code = 704-7) [facility] HospitalCOM. METABOLIC PANEL (68604)2020-10-04 23:43:59 Test Item Value Reference Range Interpretation Comments NA (test code = 138 mmol/L 135-145 2836278011) K (test code = 4.1 mmol/L 3.5-5.0 5114122358) CL (test code = 105 mmol/L 98-108 2628358113) CO2 TOTAL (test code = 26 mmol/L 23-31 3045235593) AGAP (test code = 2-16 3574846373) BUN (test code = 12 mg/dL 7-23 3698417683) GLUCOSE (test code = 124 mg/dL 70-110 H 1832716921) CREATININE (test code = 0.51 mg/dL 0.50-1.04 6338172529) TOTAL BILI (test code = 1.0 mg/dL 0.1-1.0 8596537969) CALCIUM (test code = 9.3 mg/dL 8.6-10.6 9319269843) T PROTEIN (test code = 7.9 g/dL 6.3-8.2 6653199612) ALBUMIN (test code = 4.1 g/dL 3.5-5.0 8049515896) ALK PHOS (test code = 619 U/L 34-122 H 5221828579) ALTv (test code = 99 U/L 5-35 H 1742-6) AST(SGOT) (test code = 97 U/L 13-40 H 3563294937) eGFR (test code = mL/min/1.73m2 5820675443) KIM (test code = KIM) Association of [...] tests). Lab Interpretation Abnormal (test code = 48798-8) [facility] HospitalLIPASE2021-06-22 23:43:38 Test Item Value Reference Range Interpretation Comments LIPASE (test code = 1550067140) 182 U/L 0-220 Lab Interpretation (test code = Normal 22438-2) [facility]COVID[facility] (ID NOW RAPID TESTING)2020-10-04 23:39:59 Test Item Value Reference Range Interpretation Comments SARS-CoV-2 Rapid ID NOW Not Detected Not Detected (test code = 74967-6) KIM (test code = KIM) ID NOW COVID-19 Assay is an isothermal nucleic acid amplification test intended for the qualitative detection of nucleic acid from SARS-CoV-2 viral RNA in nasopharyngeal (CHIP UNLOADER) specimens. It is used under Emergency Use [...] indicated. Lab Interpretation Normal (test code = 84819-2) [facility]URINALYSIS2021-06-22 23:36:26 Test Item Value Reference Range Interpretation Comments APPEARANCE (test code = Clear Clear 6789239346) COLOR (test code = Romelia Yellow A 8304787716) PH (test code = 4.8-8.0 4306689544) SP GRAVITY (test code = 1.003-1.030 8520055797) GLU U QUAL (test code = Normal Normal 7083639656) BLOOD (test code = Negative Negative 8621330353) KETONES (test code = Negative Negative 7118963312) PROTEIN (test code = Negative Negative 2887-8) UROBILIN (test code = 4.0 mg/dL Normal A 0323664507) BILIRUBIN (test code = Negative Negative 2553654943) NITRITE (test code = Negative Negative 3756492288) LEUK NICHOLE (test code = Negative Negative 4967986176) RBC/HPF (test code = See_Comment [Autom ated message] 7417086768) The system [employer] generated this result transmit gulshan reference range : 0 - 3 HPF. The refe rence range was not u sed to interpret th is result as normal/abnormal . WBC/HPF (test code = <1 See_Comment [Autom ated message] 3760465255) The system [employer] generated this result transmit gulshan reference range : 0 - 5 HPF. The refe rence range was not u sed to interpret th is result as normal/abnormal . BACTERIA (test code = Few Negative A 1500889068) MUCOUS (test code = Slight Negative LPF A 2897981394) SQ EPITH (test code = HPF 2112195182) Lab Interpretation (test Abnormal code = 82353-0) [facility] HospitalCB WITH [id number] 23:29:18 Test Item Value Reference Range Interpretation Comments WBC (test code = See_Comment L [Automated 9490-2) message] The sy stem which generated this result transmitted reference range : 4.30 - 11.10 10*3/?L. The reference range was not used to interpret this result as normal/abnormal . RBC (test code = See_Comment L [Automated 959-8) message] The sy stem which generated this [...] RDW-SD (test code = 40.5 fL 39.0-49.9 89742-4) RDW-CV (test code = 12.2 % 12.0-15.5 788-0) PLT (test code = See_Comment [Automated 777-3) message] The sy stem which generated this result transmitted reference range : 166 - 358 10*3/ ?L. The reference r luca was not used to interpret this result as normal/abnormal . MPV (test code = 9.8 fL 9.5-12.9 34643-4) NRBC/100 WBC (test See_Comment [Automat ed code = 9640073172) message] The system which generated this result transmitted reference range : 0.0 - 10.0 /100 WBCs. The refer ence range was not u sed to interpret th is result as normal/abnormal . NRBC x10^3 (test code <0.01 See_Comment [Auto mated = 4727160996) message] The s ystem which generated this result transmitted reference range : 10*3/?L. The reference range was not used to interpret this result as normal/abnormal . GRAN MAT (NEUT) % 72.0 % (test code = 770-8) IMM GRAN % (test code 0.20 % = 2837169496) LYMPH % (test code = 19.8 % 736-9) MONO % (test code = 6.4 % 5905-5) EOS % (test code = 1.4 % 713-8) BASO % (test code = 0.2 % 706-2) GRAN MAT x10^3(ANC) 3.06 10*3/uL 1.88-7.09 (test code = 3241095158) IMM GRAN x10^3 (test <0.03 0.00-0.06 code = 7198816005) LYMPH x10^3 (test code 0.84 10*3/uL 1.32-3.29 L = 731-0) MONO x10^3 (test code 0.27 10*3/uL 0.33-0.92 L = 742-7) EOS x10^3 (test code = 0.06 10*3/uL 0.03-0.39 711-2) BASO x10^3 (test code <0.03 0.01-0.07 = 704-7) Lab Interpretation Abnormal (test code = 09975-8) [facility] HospitalMR, ABDOMEN, [id number] 13:41:00Liver Protocol with ElastographyUnlisted Reason for Exam - Click Yes and Enter Reason Below->YesUnlisted Reason for Exam->History of liver fibrosis [facility] : 1960 Sex: FFINAL REPORT TECHNIQUE: MRI of the abdomen WITHOUT and WITH intravenous contrast and MRelastography INDICATION: Liver disease, chronic portal hypertension assessment. COMPARISON: 10/14/2014. FINDINGS: Exam limited secondary to motion artifact. LOWER THORAX: Unremarkable. LIVER: Liver demonstrates mildly heterogeneous T2 signal. Liver demonstrates smooth contour. There are multiple foci ofarterial phase enhancement within the left hepatic lobe. Some of the peripheral lesions have mild associated capsular retraction. There is no corresponding washout or persistent enhancement on the delayed images. For instance at the junction of segments two and four, there is a 2 x 2.7 cm focus. (See arterial phase image 94)BILIARY: Prior cholecystectomy.. No biliary ductal dilation. There is mild pneumobilia..SPLEEN: Spleen is enlarged measuring [...] related to prior biliary intervention. No biliary ductaldilation. Changes of chronic pancreatitis with mild biliary duct dilation. There are two small cystic foci within the pancreatic uncinate and neck which may represent small pseudocysts versus sidebranch IPMN. Follow-up MRI/MRCP in two years is suggested. References:*Stiffness threshold correlation to fibrosis based on meta-analysis by Chris, MRI Clin N Am 2014Hepatic Fat Fraction Thresholds based on Abdom Radiol 2020;45(3):661-671. Signed: Parul Saeedort Verified Date/Time: 09/08/2020 13:41:30 Reading Location: [facility] B1 C013X Ortho Consult Reading Room PROTHROMBIN TIME/[id number] 04:34:00 Test Item Value Reference Range Interpretation Comments PROTIME (BEAKER) 11.7 seconds 11.9-14.2 L (test code = 759) INR (BEAKER) (test 0.88 See_Comment [Automat ed message] code = 370) The system [employer] generated this result transmitted ref erence range: <=5.90. The reference range was not used to int erpret this result as normal/abnormal . RECOMMENDED COUMADIN/WARFARIN INR THERAPY RANGESSTANDARD DOSE: 2.0 - 3.0 Includes: PROPHYLAXIS for venous thrombosis, systemic embolization; TREATMENT for venous thrombosis and/or pulmonary embolus.HIGH RISK: Target INR is 2.5-3.5 for patients with mechanical heart valves.BASIC METABOLIC [id number] 04:51:00 Test Item Value Reference Range Interpretation [...] S NOT APPLICABLE FOR DIALYSIS PATIEN TS. Spline Rolling Machine Job Setter ID - ALAINA WHEPATIC FUNCTION [id number] 04:51:00 Test Item Value Reference Range Interpretation [...] code = 132 U/L 6-55 H 347) Spline Rolling Machine Job Setter ID - LAAINA [id number] 04:51:00 Test Item Value Reference Range Interpretation Comments LIPASE (BEAKER) (test code = 749) 115 U/L 8-78 H Spline Rolling Machine Job Setter ID Ryan FOLEY WPROTHROMBIN TIME/[id number] 04:25:00 Test Item Value Reference Range Interpretation Comments PROTIME (BEAKER) 12.3 seconds 11.9-14.2 (test code = 759) INR (BEAKER) (test 0.94 See_Comment [Automat ed message] code = 370) The system [employer] generated this result transmitted ref erence range: <=5.90. The reference range was not used to int erpret this result as normal/abnormal . RECOMMENDED COUMADIN/WARFARIN INR THERAPY RANGESSTANDARD DOSE: 2.0 - 3.0 Includes: PROPHYLAXIS for venous thrombosis, systemic embolization; TREATMENT for venous thrombosis and/or pulmonary embolus.HIGH RISK: Target INR is 2.5-3.5 for patients with mechanical heart valves.FL, [id number] 08:00:00INTRA OP IMAGIN Reason for exam:->ercp [facility] : 1960 Sex: FFluoroscopic unit utilized for a procedure performed in the OR. No interpretation was requested. Refer to the operative report for findings. Refer to PACS for patient radiation dose information.SARS-COV2/RT-PCR ([facility])2020-09-06 06:35:00 Test Item Value Reference Range Interpretation Comments SARS-COV2/RT-PCR (test Negative Not Detected, Negative, code = 5648459) See external report for linked test SARS-COV-2 PERFORMING LAB [facility] DEVAN (test code = 3267975) Negative result for this test determines that [...] individuals suspected of COVID-19 by their healthcare provider.This test [...] justifying the authorization of the emergency use ofin vitro diagnostic tests for detection and/or diagnosis of COVID-19 is terminated under Section 564(b)(2) of the Act or the EUA is revoked under Section 564(g) of the Act.Testing was performed using the Simms SARS-CoV-2 assay.Fact Sheet for Healthcare Providers:https://www.Igea.[employer]cor[employer]aturaSì/bertha/RT_SAR L-TzF-0_XYJ_Idtc_Umdmi_85-686112.pdfFact Sheet for Healthcare Patients:https://www.[employer]ge[employer]/s al/XF_AVPX-SyV-0_Oyquogg_Hegx_Ybuvw_AW_71-708215B2.pdfPerforming Laboratory:[facility] [place] [address] PROTHROMBIN TIME/[id number] 04:41:00 Test Item Value Reference Range Interpretation Comments PROTIME (BEAKER) 12.4 seconds 11.9-14.2 (test code = 759) INR (BEAKER) (test 0.95 See_Comment [Automat ed message] code = 370) The system [employer] generated this result transmitted ref erence range: <=5.90. The reference range was not used to int erpret this result as normal/abnormal . RECOMMENDED COUMADIN/WARFARIN INR THERAPY RANGESSTANDARD DOSE: 2.0 - 3.0 Includes: PROPHYLAXIS for venous thrombosis, systemic embolization; TREATMENT for venous thrombosis and/or pulmonary embolus.HIGH RISK: Target INR is 2.5-3.5 for patients with mechanical heart valves.[id number] 14:40:00 Test Item Value Reference Range Interpretation Comments MAGNESIUM (BEAKER) 1.9 mg/dL 1.6-2.6 Specimen slightly (test code = 627) hemolyzed Spline Rolling Machine Job Setter HONG NEGRON FBASIC METABOLIC [id number] 14:40:00 Test Item Value Reference Range Interpretation [...] S NOT APPLICABLE FOR DIALYSIS PATIEN TS. Spline Rolling Machine Job Setter ID Ryan NEGRON FHEPATIC FUNCTION [id number] 14:40:00 Test Item Value Reference Range Interpretation [...] Specimen slightly (test code = 347) hemolyzed Spline Rolling Machine Job Setter ID Ryan NEGRON [id number] 14:40:00 Test Item Value Reference Range Interpretation Comments LIPASE (BEAKER) (test code = 749) 446 U/L 8-78 H Spline Rolling Machine Job Setter ID Ryan NEGRON FCBC W/PLT COUNT & AUTO [id number] 14:14:00 Test Item Value Reference Range Interpretation [...] PERCENT (BEAKER) (test code = 2801) [place], [id number] 08:35:00Reason for exam:->abnormal imaging [facility] : 1960 Sex: FFluoroscopic unit utilized for a procedure performed in the OR. No interpretation was requested. Refer to the operative report for findings. Refer to PACS for patient radiation dose information.[id number] 06:42:00 Test Item Value Reference Range Interpretation Comments MAGNESIUM (BEAKER) (test code = 1.8 mg/dL 1.6-2.6 627) Spline Rolling Machine Job Setter ID - [id number] 06:42:00 Test Item Value Reference Range Interpretation Comments PHOSPHORUS (BEAKER) (test code = 3.4 mg/dL 2.3-4.7 604) Spline Rolling Machine Job Setter ID - EDASIHEPATIC FUNCTION [id number] 06:42:00 Test Item Value Reference Range Interpretation [...] code = 89 U/L 6-55 H 347) Spline Rolling Machine Job Setter ID - EDASIBASIC METABOLIC [id number] 06:42:00 Test Item Value Reference Range Interpretation [...] S NOT APPLICABLE FOR DIALYSIS PATIEN TS. Spline Rolling Machine Job Setter ID - EDASICBC W/PLT COUNT & AUTO [id number] 05:27:00 Test Item Value Reference Range Interpretation [...] PERCENT (BEAKER) (test code = 2801) SARS-COV2/RT-PCR ([facility] & [facility])2020-08-26 12:43:00 Test Item Value Reference Range Interpretation Comments SARS-COV2/RT-PCR (test Negative Not Detected, Negative, code = 6067937) See external report for linked test SARS-COV-2 PERFORMING LAB [facility] (test code = 6495884) Negative result for this test determines that [...] individuals suspected of COVID-19 by their healthcare provider.This test [...] justifying the authorization of the emergency use ofin vitro diagnostic tests for detection and/or diagnosis of COVID-19 is terminated under Section 564(b)(2) of the Act or the EUA is revoked under Section 564(g) of the Act.Fact Sheet for Healthcare Prov iders:https://www.MetaStat/sites/default/files/product/documents/Fact_Sheet_HC _Uovxmuprr_Jxei_BKBC-SsN-1.pdfFact Sheet for Healthcare Patients:https://www.[employer]Stat/sites/default/files/product/docume nts/Tsuh_Xdukg_Nymyljxl_Mtvn_IREX-UnW-0.pdfPerforming Laboratory:[place] [address] [place], [place] [address]ULQTD METABOLIC PANEL 2020-08-26 06:19:00 Test Item Value [...] GFR I S NOT APPLICABLE FOR DIALYSIS SHEBA TS. [employer] Setter ID - PIAYA [id number] 06:19:00 Test Item Value Reference Range Interpretation Comments MAGNESIUM (BEAKER) (test code = 1.8 mg/dL 1.6-2.6 627) [employer] Setter HONG THOMPSON LHEPATIC FUNCTION [id number] 06:19:00 Test Item Value Reference Range Interpretation [...] code = 82 U/L 6-55 H 347) [employer] Setter ID Ryan THOMPSON LCBC W/PLT COUNT & AUTO [id number] 05:37:00 Test Item Value Reference Range Interpretation [...] images do not require a Radiology diagnostic report.[facility] TIME OR (NON-REPORTABLE)2020-07-18 13:25:02These images do not require a Radiology diagnostic report.[facility] GLUCOSE (AUTOMATED) 2020-07-18 12:07:46 Test Item Value Reference Range Interpretation Comments POCT GLU (test code = 1410227126) 98 mg/dL 70-110 Lab Interpretation (test code = Normal 81641-6) [facility] GLUCOSE (AUTOMATED)2020-07-18 12:07:46 Test Item Value Reference Range Interpretation Comments POCT GLU (test code = 3908460748) 98 mg/dL 70-110 Lab Interpretation (test code = Normal 81603-9) [facility] ABDOMEN PELVIS W [id number] 01:39:22 1. ?No acute obstruction or inflammation [...] There is no inflammation around thepancreas. The spleenenlarged measuring 14 cm. There is no adrenal nodule. The kidneys demonstrate symmetric nephrograms.There is no hydronephrosis.There is no retroperitoneal or mesenteric adenopathy. There is no bowel obstruction or inflammation. The appendix has beenremoved. There is a large amount of stool in the colon. There is no adnexal mass. No destructive bony process is seen. [facility], Radiant Results Inft User - 07/07/2020 8:40 PM CDTHISTORY: Abdominal abscess/infection suspected COMPARISON:noneTECHNIQUE:CT scanof the abdomen and pelvis performed. Contiguous axial CT imageswere obtained after administration ofintravenous contrast. CT scan doneaccording to ALARA. Technical quality: Technical quality: adequate.FINDINGS:Lung bases are clear.Fatty liver infiltration noted. Gallbladder removed. Pneumobilia is noted.There is no biliary dilatation. There is no inflammation around thepancreas. The spleen enlarged measuring 14 cm.There is no adrenal nodule.The kidneys demonstrate symmetric nephrograms. There is nohydronephrosis.There is no retroperitoneal or mesenteric adenopathy.There is no bowel obstruction orinflammation. The appendix has beenremoved. There is a large amount of stool in the colon.There is no adnexal mass.No destructive bony process is seen.IMPRESSION1. No acute obstruction or inflammation in the abdomen or pelvis.2. Appendix removed.3. No adnexal mass.4. There is abundant stool throughoutthe colon.RL: 1105 [facility]TR[facility] [id number] 00:55:45 Test Item Value Reference Range Interpretation Comments TROPONIN I (test 0.002 ng/mL See_Comment [Automated code = 6923262420) message] The system which generated this result [...] ? Lab Interpretation Normal (test code = 39736-1) [facility] (ID NOW RAPID TESTING)2020-07-08 00:47:04 Test Item Value Reference Range Interpretation Comments SARS-CoV-2 Rapid ID NOW Not Detected Not Detected (test code = 64517-7) KIM (test code = KIM) ID NOW COVID-19 Assay is an isothermal nucleic acid amplification test intended for the qualitative detection of nucleic acid from SARS-CoV-2 viral RNA in nasopharyngeal (CHIP UNLOADER) specimens. It is used under Emergency Use [...] indicated. Lab Interpretation Normal (test code = 50001-8) [facility]MAG[facility]2021-03-26 00:45:06 Test Item Value Reference Range Interpretation Comments MAGNESIUM (test code = 3898089054) 2.0 mg/dL 1.7-2.4 Lab Interpretation (test code = Normal 21349-3) [facility] HospitalCOM. METABOLIC PANEL (69938)2020-07-08 00:44:41 Test Item Value Reference Range Interpretation Comments NA (test code = 139 mmol/L 135-145 0739899309) K (test code = 4.4 mmol/L 3.5-5.0 8115734810) CL (test code = 108 mmol/L 98-108 1818006183) CO2 TOTAL (test code = 23 mmol/L 23-31 7211466995) AGAP (test code = 2-16 2714610880) BUN (test code = 22 mg/dL 7-23 4236122963) GLUCOSE (test code = 107 mg/dL 70-110 4637027671) CREATININE (test code = 0.62 mg/dL 0.50-1.04 2983315939) TOTAL BILI (test code = 0.9 mg/dL 0.1-1.3 7767459345) CALCIUM (test code = 10.0 mg/dL 8.6-10.6 8372265273) T PROTEIN (test code = 8.3 g/dL 6.3-8.2 H 5977332160) ALBUMIN (test code = 4.8 g/dL 3.5-5.0 5895421086) ALK PHOS (test code = 1085 U/L 34-122 H 4317972230) ALTv (test code = 383 U/L 5-35 H 1742-6) AST(SGOT) (test code = 217 U/L 13-40 H 4371411388) eGFR Calculation mL/min/1.73m2 (Non-) (test code = 4629373977) eGFR Calculation mL/min/1.73m2 () (test code = 2438669649) KIM (test code = KIM) Association of [...] tests). Lab Interpretation Abnormal (test code = 52648-6) [facility] HospitalLIPASE2021-03-26 00:44:41 Test Item Value Reference Range Interpretation Comments LIPASE (test code = 7146577615) 131 U/L 0-220 Lab Interpretation (test code = Normal 44490-1) [facility] HospitalURINALYSIS2021-03-26 00:38:06 Test Item Value Reference Range Interpretation Comments APPEARANCE (test code = Clear Clear 1260626014) COLOR (test code = Yellow Yellow 6997926854) PH (test code = 4.8-8.0 8384693609) SP GRAVITY (test code = 1.003-1.030 2909367224) GLU U QUAL (test code = Normal Normal 0336885192) BLOOD (test code = Negative Negative 9061584462) KETONES (test code = Negative Negative 4568430705) PROTEIN (test code = Negative Negative 2887-8) UROBILIN (test code = 4.0 mg/dL Normal A 9498002149) BILIRUBIN (test code = Negative Negative 5024023854) NITRITE (test code = Negative Negative 3894901846) LEUK NICHOLE (test code = Negative Negative 9800231664) RBC/HPF (test code = <1 See_Comment [Autom ated message] 8477612169) The system [employer] generated this result transmit gulshan reference range : 0 - 3 HPF. The refe rence range was not u sed to interpret th is result as normal/abnormal . WBC/HPF (test code = See_Comment [Autom ated message] 9681791584) The system [employer] generated this result transmit gulshan reference range : 0 - 5 HPF. The refe rence range was not u sed to interpret th is result as normal/abnormal . BACTERIA (test code = Few Negative A 1306524625) MUCOUS (test code = Slight Negative LPF A 5772512097) SQ EPITH (test code = HPF 1445405279) Lab Interpretation (test Abnormal code = 36074-1) [facility] WITH [id number] 00:32:00 Test Item Value Reference Range Interpretation [...] RDW-SD (test code = 48.1 fL 39.0-49.9 93955-7) RDW-CV (test code = 14.5 % 12.0-15.5 788-0) PLT (test code = See_Comment [Automated 777-3) message] The sy stem which generated this result transmitted reference range : 166 - 358 10*3/ ?L. The reference r luca was not used to interpret this result as normal/abnormal . MPV (test code = 9.5 fL 9.5-12.9 54286-1) NRBC/100 WBC (test See_Comment [Automat ed code = 1695499836) message] The system which generated this result transmitted reference range : 0.0 - 10.0 /100 WBCs. The refer ence range was not u sed to interpret th is result as normal/abnormal . NRBC x10^3 (test code <0.01 See_Comment [Auto mated = 2946740731) message] The s ystem which generated this result transmitted reference range : 10*3/?L. The reference range was not used to interpret this result as normal/abnormal . GRAN MAT (NEUT) % 78.2 % (test code = 770-8) IMM GRAN % (test code 0.60 % = 0156168848) LYMPH % (test code = 11.9 % 736-9) MONO % (test code = 8.3 % 5905-5) EOS % (test code = 0.5 % 713-8) BASO % (test code = 0.5 % 706-2) GRAN MAT x10^3(ANC) 7.55 10*3/uL 1.88-7.09 H (test code = 4410045383) IMM GRAN x10^3 (test 0.06 10*3/uL 0.00-0.06 code = 1533701455) LYMPH x10^3 (test code 1.15 10*3/uL 1.32-3.29 L = 731-0) MONO x10^3 (test code 0.80 10*3/uL 0.33-0.92 = 742-7) EOS x10^3 (test code = 0.05 10*3/uL 0.03-0.39 711-2) BASO x10^3 (test code 0.05 10*3/uL 0.01-0.07 = 704-7) Lab Interpretation Abnormal (test code = 14631-1) [facility] TIME OR (NON-REPORTABLE)2020-07-04 13:40:03 These images do not require a Radiology diagnostic report.[facility] TIME OR (NON-REPORTABLE)2020-06-20 14:58:12These images do not require a Radiology diagnostic report.[facility] Metabolic Panel (NA, K, CL, CO2, GLUCOSE, BUN, CREATININE, CA)2020-05-06 23:29:00 Test Item Value Reference Range Interpretation Comments NA (test code = 138 mmol/L 135-145 7669050318) K (test code = 4.4 mmol/L 3.5-5 9144881329) CL (test code = 108 mmol/L 98-108 1033174740) CO2 TOTAL (test code = 20 mmol/L 23-31 L 7175966647) AGAP (test code = 2-16 3436038472) BUN (test code = 18 mg/dL 7-23 6475993698) GLUCOSE (test code = 90 mg/dL 70-110 0069409747) CREATININE (test code = 0.68 mg/dL 0.5-1.04 9644292753) CALCIUM (test code = 9.1 mg/dL 8.6-10.6 9584913354) eGFR Calculation mL/min/1.73m2 (Non-) (test code = 3035580680) eGFR Calculation mL/min/1.73m2 () (test code = 5004194369) KIM (test code = KIM) Association of [...] tests). Lab Interpretation Abnormal (test code = 61596-5) [facility] HospitalHepatic Function Panel (ALB, T.PRO, BILI T, BU/BC, ALT, AST, ALK PHOS)2020-05-06 23:28:00 Test Item Value Reference Range Interpretation Comments TOTAL BILI (test code = 4700826966) 1.1 mg/dL 0.1-1.1 BILI UNCON (test code = 2718515278) 0.4 mg/dL 0.1-1.1 BILI CONJ (test code = 4539991945) 0.0 mg/dL 0-0.3 T PROTEIN (test code = 2379905445) 7.9 g/dL 6.3-8.2 ALBUMIN (test code = 5986826517) 4.4 g/dL 3.5-5 ALK PHOS (test code = 9265609402) 984 U/L 34-122 H ALTv (test code = 1742-6) 218 U/L 5-35 H AST(SGOT) (test code = 7120909055) 133 U/L 13-40 H Lab Interpretation (test code = Abnormal 83851-1) [facility] HospitalTroponin [id number] 22:19:00 Test Item Value Reference Range Interpretation Comments TROPONIN I (test 0.021 ng/mL See_Comment [Automated code = 0200838792) message] The system which generated this result [...] ? Lab Interpretation Normal (test code = 45682-5) [facility]COVID[facility] (ID NOW RAPID TESTING)2020-05-06 22:13:00 Test Item Value Reference Range Interpretation Comments SARS-CoV-2 Rapid ID NOW Not Detected Not Detected (test code = 95633-9) KIM (test code = KIM) ID NOW COVID-19 Assay is an isothermal nucleic acid amplification test intended for the qualitative detection of nucleic acid from SARS-CoV-2 viral RNA in nasopharyngeal (CHIP UNLOADER) specimens. It is used under Emergency Use [...] indicated. Lab Interpretation Normal (test code = 24646-0) [facility] HospitalUrinalysis2021-01-22 22:09:00 Test Item Value Reference Range Interpretation Comments APPEARANCE (test code = Clear Clear 0037155540) COLOR (test code = Yellow Yellow 9537530362) PH (test code = 4.8-8.0 2026258128) SP GRAVITY (test code = 1.003-1.030 3643651277) GLU U QUAL (test code = Normal Normal 0133921955) BLOOD (test code = Negative Negative INTERFERE NCE FROM 5974897051) ASCORBIC ACID M AY CAUSE FALSE NEG ATIVE RESULT KETONES (test code = Negative Negative 0626188538) PROTEIN (test code = Negative Negative 2887-8) UROBILIN (test code = 2.0 mg/dL Normal A 4126400892) BILIRUBIN (test code = Negative Negative 8163776330) NITRITE (test code = Negative Negative 7419666546) LEUK NICHOLE (test code = Negative Negative 0118137561) RBC/HPF (test code = See_Comment [Autom ated message] 9758011459) The system [employer] generated this result transmitted ref erence range: 0 - 3 HP F. The reference range was not used to int erpret this result as normal/abnormal . WBC/HPF (test code = See_Comment [Autom ated message] 0680074467) The system [employer] generated this result transmitted ref erence range: 0 - 5 HP F. The reference range was not used to int erpret this result as normal/abnormal . BACTERIA (test code = Few Negative A 0974454509) SQ EPITH (test code = HPF 0293275980) HYAL CAST (test code = See_Comment [Aut omated message] 1394128819) The system [employer] generated this result transmitted ref erence range: <=2 LPF. The reference range was not used to int erpret this result as normal/abnormal . Lab Interpretation Abnormal (test code = 52217-0) [facility] HospitalLipase [id number] 22:08:00 Test Item Value Reference Range Interpretation Comments LIPASE (test code = 2453264981) 114 U/L 0-220 Lab Interpretation (test code = Normal 11964-9) [facility] HospitalCBC with [id number] 22:02:00 Test Item Value Reference Range Interpretation [...] RDW-SD (test code = 41.0 fL 39-49.9 81869-6) RDW-CV (test code = 12.4 % 12-15.5 788-0) PLT (test code = See_Comment [Automated 777-3) message] The sy stem which generated this result transmitted reference range : 166 - 358 10*3/ ?L. The reference r luca was not used to interpret this result as normal/abnormal . MPV (test code = 10.5 fL 9.5-12.9 12306-4) NRBC/100 WBC (test See_Comment [Automat ed code = 7074526011) message] The system which generated this result transmitted reference range : 0.0 - 10.0 /100 WBCs. The refer ence range was not u sed to interpret th is result as normal/abnormal . NRBC x10^3 (test code <0.01 See_Comment [Auto mated = 6456244360) message] The s ystem which generated this result transmitted reference range : 10*3/?L. The reference range was not used to interpret this result as normal/abnormal . GRAN MAT (NEUT) % 71.8 % (test code = 770-8) IMM GRAN % (test code 0.10 % = 9454642980) LYMPH % (test code = 19.0 % 736-9) MONO % (test code = 6.2 % 5905-5) EOS % (test code = 2.2 % 713-8) BASO % (test code = 0.7 % 706-2) GRAN MAT x10^3(ANC) 4.83 10*3/uL 1.88-7.09 (test code = 5339374711) IMM GRAN x10^3 (test <0.03 0-0.06 code = 0137977314) LYMPH x10^3 (test code 1.28 10*3/uL 1.32-3.29 L = 731-0) MONO x10^3 (test code 0.42 10*3/uL 0.33-0.92 = 742-7) EOS x10^3 (test code = 0.15 10*3/uL 0.03-0.39 711-2) BASO x10^3 (test code 0.05 10*3/uL 0.01-0.07 = 704-7) Lab Interpretation Abnormal (test code = 62421-6) [facility] 1 [id number] 21:48:28Findings and Impression: ?Subcentimeter calcified granuloma projecting overthe right upper lobe, unchanged. Lungs are otherwise clear. No pleuraleffusion or pneumothorax. Heart size is normal to mildlyenlarged. No acuteosseous abnormalities. PORTABLE CHEST RADIOGRAPH History: chest tightness Comparison: 01/31/2020 TECHNIQUE: AP view of the chest. [facility], Radiant Results Inft User - 05/06/2020 3:49 PM C STPORTABLE CHEST RADIOGRAPHHistory: chest tightness Comparison: 01/31/2020TECHNIQUE: AP view of the chest.IMPRESSIONFindings and Impression: Subcentimeter calcified granuloma projecting overthe right upper lobe, unchanged. Lungs are otherwise clear. No pleuraleffusion or pneumothorax. Heart size is normal to mildly enlarged. No acuteosseous abnormalities.[facility] HospitalUrinalysis2020-12-12 05:27:00 Test Item Value Reference Range Interpretation Comments APPEARANCE (test code Slightly Cloudy Clear A = 2395979638) COLOR (test code = Yellow Yellow 7977561944) PH (test code = 4.8-8.0 3489787212) SP GRAVITY (test code >=1.030 1.003-1.030 = 9519315592) GLU U QUAL (test code Negative Negative = 8507271403) BLOOD (test code = Trace Negative A 1276815370) KETONES (test code = Negative Negative 2317055463) PROTEIN (test code = Negative Negative 2887-8) UROBILIN (test code = 1.0 mg/dL See_Comment [Auto mated 9578147126) message] The system which generated this result transmit gulshan reference range : 0-1.0 mg/dL. Th e reference range was not used to interpret this result as normal/abnormal . BILIRUBIN (test code Small Negative A = 9839858237) NITRITE (test code = Negative Negative 1369389862) LEUK NICHOLE (test code Trace Negative A = 7988698049) RBC/HPF (test code = See_Comment [Autom ated 7454814445) message] The system which generated this result transmit gulshan reference range : 0 - 3 HPF. The reference range was not used to interpret this result as normal/abnormal . WBC/HPF (test code = See_Comment [Autom ated 2476881350) message] The system which generated this result transmit gulshan reference range : 0 - 5 HPF. The reference range was not used to interpret this result as normal/abnormal . BACTERIA (test code = Few Negative A 4552979801) AMORPHOUS (test code Few Rare HPF A = 0813974085) SQ EPITH (test code = HPF 0813532482) Lab Interpretation Abnormal (test code = 79670-0) [facility] HospitalCOVID[facility] (ID NOW RAPID TESTING)2020-03-26 04:39:00 Test Item Value Reference Range Interpretation Comments SARS-CoV-2 Rapid ID NOW Not Detected Not Detected (test code = 54668-9) KIM (test code = KIM) ID NOW COVID-19 Assay is an isothermal nucleic acid amplification test intended for the qualitative detection of nucleic acid from SARS-CoV-2 viral RNA in nasopharyngeal (CHIP UNLOADER) specimens. It is used under Emergency Use [...] indicated. Lab Interpretation Normal (test code = 71835-7) [facility] HospitalComplete Metabolic [id number] 04:12:00 Test Item Value Reference Range Interpretation Comments NA (test code = 139 mmol/L 135-145 9790012393) K (test code = 4.5 mmol/L 3.5-5 4199063035) CL (test code = 108 mmol/L 98-108 7353130300) CO2 TOTAL (test code = 22 mmol/L 23-31 L 1200642543) AGAP (test code = 2-16 1728617020) BUN (test code = 17 mg/dL 7-23 8681169475) GLUCOSE (test code = 102 mg/dL 70-110 8293951523) CREATININE (test code = 0.96 mg/dL 0.5-1.04 7263265968) TOTAL BILI (test code = 0.7 mg/dL 0.1-1.3 7073545389) CALCIUM (test code = 9.3 mg/dL 8.6-10.6 8457915965) T PROTEIN (test code = 7.3 g/dL 6.3-8.2 9699050098) ALBUMIN (test code = 4.1 g/dL 3.5-5 1264216087) ALK PHOS (test code = 675 U/L 34-122 H 8517238725) ALTv (test code = 115 U/L 5-35 H 1742-6) AST(SGOT) (test code = 100 U/L 13-40 H 5803392038) eGFR Calculation mL/min/1.73m2 (Non-) (test code = 5849327236) eGFR Calculation mL/min/1.73m2 () (test code = 7351792464) KIM (test code = KIM) Association of [...] tests). Lab Interpretation Abnormal (test code = 59293-2) [facility] HospitalLipase, [id number] 04:11:00 Test Item Value Reference Range Interpretation Comments LIPASE (test code = 7138451611) 171 U/L 0-220 Lab Interpretation (test code = Normal 25837-7) [facility] HospitalCB with [id number] 03:56:00 Test Item Value Reference Range Interpretation Comments WBC (test code = See_Comment [Automated 3990-2) message] The sy stem which generated this result transmitted reference range : 4.30 - 11.10 10*3/?L. The reference range was not used to interpret this result as normal/abnormal . RBC (test code = See_Comment L [Automated 959-8) message] The sy stem which generated this [...] RDW-SD (test code = 47.5 fL 39-49.9 50200-3) RDW-CV (test code = 13.3 % 12-15.5 788-0) PLT (test code = See_Comment [Automated 777-3) message] The sy stem which generated this result transmitted reference range : 166 - 358 10*3/ ?L. The reference r luca was not used to interpret this result as normal/abnormal . MPV (test code = 9.4 fL 9.5-12.9 L 88794-1) NRBC/100 WBC (test See_Comment [Automat ed code = 0478734336) message] The system which generated this result transmitted reference range : 0.0 - 10.0 /100 WBCs. The refer ence range was not u sed to interpret th is result as normal/abnormal . NRBC x10^3 (test code <0.01 See_Comment [Auto mated = 3535749322) message] The s ystem which generated this result transmitted reference range : 10*3/?L. The reference range was not used to interpret this result as normal/abnormal . GRAN MAT (NEUT) % 67.1 % (test code = 770-8) IMM GRAN % (test code 0.70 % = 2737607787) LYMPH % (test code = 22.2 % 736-9) MONO % (test code = 6.4 % 5905-5) EOS % (test code = 2.9 % 713-8) BASO % (test code = 0.7 % 706-2) GRAN MAT x10^3(ANC) 3.69 10*3/uL 1.88-7.09 (test code = 5625224198) IMM GRAN x10^3 (test 0.04 10*3/uL 0-0.06 code = 8874052503) LYMPH x10^3 (test code 1.22 10*3/uL 1.32-3.29 L = 731-0) MONO x10^3 (test code 0.35 10*3/uL 0.33-0.92 = 742-7) EOS x10^3 (test code = 0.16 10*3/uL 0.03-0.39 711-2) BASO x10^3 (test code 0.04 10*3/uL 0.01-0.07 = 704-7) Lab Interpretation Abnormal (test code = 70854-1) [facility] HospitalMR BRAIN WO [id number] 17:24:06 Impression: 1. ?Normal MRI brain. 2. ?Mastoid effusions. 3. ?Right petrous apex effusion.Exam: MR BRAIN WO CONTRAST Clinical History: Stroke suspected, focal neuro deficit, > 6 hrs Technique:RoutineMR brain without contrast Comparison: CT brain dated 02/01/2020 Findings: Diffusion-weighted images are normal. No acute infarction isidentified. Bilateral mastoid effusions are present. Minimal right petrous apex fluid. A single focus of T2 hyperintensities noted in the right posterior frontalsubcortical region. No other focal signal abnormality is identifiedelsewhere in the brain. The brainstem andcerebellum are normal. The intracranial flow voids are normal. The gradient-echo images do not demonstrate any evidence of intracranialhemorrhage. [facility], Radiant Results Inft User - 02/08/2020 12:25 PM CDTExam: MR BRAIN WO CONTRASTClinical History: Stroke suspected, focal neuro deficit, > 6 hrs Technique:Routine MR brain without contrastComparison: CT brain dated 02/01/2020Findings: Diffusion-weighted images are normal. No acute infarction isidentified.Bilateral mastoid effusions are present. Minimal right petrous apex fluid.A single focus of T2 hyperintensities noted in the right posterior frontalsubcortical region. No other focal signal abnormality is identifiedelsewhere in the brain. The brainstem and cerebellum are normal.The intracranial flow voids are normal.The gradient-echo images do not demonstrate any evidence of intracranialhemorrhage. IMPRESSIONImpression:1. Normal MRI brain.2. Mastoid effusions.3. Right petrous apex effusion.[facility] CULTURE [id number] 21:10:00 Test Item Value Reference Range Interpretation Comments Blood Culture-Aerobic Culture positive. No growth AA P revious (test code = 02494-5) See Blood Culture p reliminary Workup for verified result additional was Culture In information. Progress on 02/02/2020 at 1901 CDT Blood No organisms No growth Previous Culture-Anaerobic isolated preliminar y (test code = 04244-1) verifi ed result was Culture In Progress on 02/03/2020 at 1314 CDT Lab Interpretation Abnormal (test code = 33598-5) [facility] CULTURE [id number] 21:01:00 Test Item Value Reference Range Interpretation Comments Blood Culture-Aerobic No organisms No growth Previo us (test code = 78784-4) isolated prelim inary verified result was Culture [...] Culture-Anaerobic isolated preliminar y (test code = 35236-0) verifi ed result was Culture In Progress [...] CDT Lab Interpretation Normal (test code = 02462-8) [facility] (NA, K, CL, CO2, GLUCOSE, BUN, CREATININE, CA)2020-02-07 09:09:00 Test Item Value Reference Range Interpretation Comments NA (test code = 136 mmol/L 135-145 6335173971) K (test code = 4.3 mmol/L 3.5-5 Slight hemoly sis 6573309442) CL (test code = 104 mmol/L 98-108 7492182476) CO2 TOTAL (test 26 mmol/L 23-31 code = 9021389147) AGAP (test code = 2-16 3900919296) BUN (test code = 12 mg/dL 7-23 Slight hemo lysis 1783650199) GLUCOSE (test code 98 mg/dL 70-110 = 0309924645) CREATININE (test 0.50 mg/dL 0.5-1.04 code = 7052523073) CALCIUM (test code 8.9 mg/dL 8.6-10.6 = 9992440905) eGFR Calculation mL/min/1.73m2 (Non-) (test code = 7208192986) eGFR Calculation mL/min/1.73m2 () (test code = 7308217778) KIM (test code = Association of KIM) [...] or urine or abnormalities in imaging tests). [facility] WITH [id number] 08:58:00 Test Item Value Reference Range Interpretation [...] RDW-SD (test code = 48.5 fL 39-49.9 77412-9) RDW-CV (test code = 13.9 % 12-15.5 788-0) PLT (test code = See_Comment [Automated 777-3) message] The sy stem which generated this result transmitted reference range : 166 - 358 10*3/ ?L. The reference r luca was not used to interpret this result as normal/abnormal . MPV (test code = 9.1 fL 9.5-12.9 L 47235-1) NRBC/100 WBC (test See_Comment [Automat ed code = 9227117602) message] The system which generated this result transmitted reference range : 0.0 - 10.0 /100 WBCs. The refer ence range was not u sed to interpret th is result as normal/abnormal . NRBC x10^3 (test code <0.01 See_Comment [Auto mated = 6858013874) message] The s ystem which generated this result transmitted reference range : 10*3/?L. The reference range was not used to interpret this result as normal/abnormal . GRAN MAT (NEUT) % 69.8 % (test code = 770-8) IMM GRAN % (test code 0.40 % = 8321701655) LYMPH % (test code = 21.9 % 736-9) MONO % (test code = 6.7 % 5905-5) EOS % (test code = 0.8 % 713-8) BASO % (test code = 0.4 % 706-2) GRAN MAT x10^3(ANC) 3.66 10*3/uL 1.88-7.09 (test code = 9871811222) IMM GRAN x10^3 (test <0.03 0-0.06 code = 5856239873) LYMPH x10^3 (test code 1.15 10*3/uL 1.32-3.29 L = 731-0) MONO x10^3 (test code 0.35 10*3/uL 0.33-0.92 = 742-7) EOS x10^3 (test code = 0.04 10*3/uL 0.03-0.39 711-2) BASO x10^3 (test code <0.03 0.01-0.07 = 704-7) Lab Interpretation Abnormal (test code = 72568-5) [facility] MUSCLE AB,IGG W/[id number] 15:17:00 Test Item Value Reference Range Interpretation Comments F-ACTIN (SMOOTH See_Comment If F-Actin (Smooth Muscle) MUSCLE) AB, Antibody, IgG i s negative, IGG(BEAKER) (test the Smooth Muscle Antibody code = 15837-3) titer by IFA is not performed.REFER ENCE INTERVAL: F-Act in (Smooth Muscle) Antibod y, [...] for A IH is strong.Performe d By: [employer] [address] [place], [place] [address]Hvltejgbme Director: Praveena Mantilla MD [Automated mess age] The system which ge nerated this result transmit gulshan reference range : 0 - 19 Units. The refe rence range was not used to interpret this result as normal/abnormal . [facility]MIT[facility]RIAL M2 AB, [id number] 00:28:00 Test Item Value Reference Range Interpretation Comments AMA (test code = See_Comment H REFERENCE I NTERVAL: 39142-3) Mitochondrial ( M2) Antibody, IgG ? ?20.0 [...] does not rule out PBC.Perform ed By: [facility] [employer] [facility] [address] [place], [place] [address]Pgerpczclx Director: Praveena Mantilla MD [Aut omated message] The sy stem which generated this result transmit gulshan reference range : 0.0 - 24.9 Units. The reference range was not used to int erpret this result as normal/abnormal . Lab Interpretation Abnormal (test code = 26075-3) [facility] CULTURE [id number] 17:01:00 Test Item Value Reference Range Interpretation Comments Blood Culture-Aerobic No organisms No growth Previo us (test code = 00857-9) isolated prelim inary verified result was Culture [...] Culture-Anaerobic isolated preliminar y (test code = 96449-4) verifi ed result was Culture In Progress [...] CDT Lab Interpretation Normal (test code = 79085-8) [facility] CULTURE [id number] 14:01:00 Test Item Value Reference Range Interpretation Comments Blood Culture Coagulase negative Addition al Workup (test Staphylococcus work-up perfo rmed code = 600-7) only per reque st. Culture plate(s ) will be saved until this date : - 02/10/20 Gram stain Isolated from aerobic (test code = bottle Gram positive 664-3) cocci [facility] MET[facility]OLIC PANEL (11590)2020-02-05 09:59:00 Test Item Value Reference Range Interpretation Comments NA (test code = 140 mmol/L 135-145 7439790179) K (test code = 3.7 mmol/L 3.5-5 9165824606) CL (test code = 107 mmol/L 98-108 9583090326) CO2 TOTAL (test code = 25 mmol/L 23-31 0243875516) AGAP (test code = 2-16 5750097349) BUN (test code = 11 mg/dL 7-23 7918146609) GLUCOSE (test code = 90 mg/dL 70-110 9101312269) CREATININE (test code = 0.58 mg/dL 0.5-1.04 4528199566) TOTAL BILI (test code = 0.9 mg/dL 0.1-1.8 9157216584) CALCIUM (test code = 8.9 mg/dL 8.6-10.6 4823952865) T PROTEIN (test code = 6.7 g/dL 6.3-8.2 3192409005) ALBUMIN (test code = 3.5 g/dL 3.5-5 0443674627) ALK PHOS (test code = 518 U/L 34-122 H 7838199576) ALTv (test code = 84 U/L 5-35 H 1742-6) AST(SGOT) (test code = 49 U/L 13-40 H 5704557278) eGFR Calculation mL/min/1.73m2 (Non-) (test code = 4333407808) eGFR Calculation mL/min/1.73m2 () (test code = 0447689469) KIM (test code = KIM) Association of [...] tests). Lab Interpretation Abnormal (test code = 59522-3) [facility] WITH [id number] 09:43:00 Test Item Value Reference Range Interpretation [...] RDW-SD (test code = 48.1 fL 39-49.9 92908-5) RDW-CV (test code = 13.4 % 12-15.5 788-0) PLT (test code = See_Comment [Automated 777-3) message] The sy stem which generated this result transmitted reference range : 166 - 358 10*3/ ?L. The reference r luca was not used to interpret this result as normal/abnormal . MPV (test code = 8.7 fL 9.5-12.9 L 36411-6) NRBC/100 WBC (test See_Comment [Automat ed code = 8578046783) message] The system which generated this result transmitted reference range : 0.0 - 10.0 /100 WBCs. The refer ence range was not u sed to interpret th is result as normal/abnormal . NRBC x10^3 (test code <0.01 See_Comment [Auto mated = 8264367539) message] The s ystem which generated this result transmitted reference range : 10*3/?L. The reference range was not used to interpret this result as normal/abnormal . GRAN MAT (NEUT) % 68.3 % (test code = 770-8) IMM GRAN % (test code 0.20 % = 1193261189) LYMPH % (test code = 24.2 % 736-9) MONO % (test code = 5.5 % 5905-5) EOS % (test code = 1.4 % 713-8) BASO % (test code = 0.4 % 706-2) GRAN MAT x10^3(ANC) 3.47 10*3/uL 1.88-7.09 (test code = 8926614802) IMM GRAN x10^3 (test <0.03 0-0.06 code = 0408245992) LYMPH x10^3 (test code 1.23 10*3/uL 1.32-3.29 L = 731-0) MONO x10^3 (test code 0.28 10*3/uL 0.33-0.92 L = 742-7) EOS x10^3 (test code = 0.07 10*3/uL 0.03-0.39 711-2) BASO x10^3 (test code <0.03 0.01-0.07 = 704-7) Lab Interpretation Abnormal (test code = 07334-1) [facility] CERVICAL SPINE WO [id number] 05:59:37 Mild degenerative changes most pronounced at C5-C6 and C6-C7 as above. RL: 460 AFC: [id number] Ordering physician: GET AGUILLON INDICATION: Neck pain, [...] cord signal or cordcompression. There is diffuse lossof intervertebral disc height andsignal, consistent with degenerative disc disease.C5-C6: Mild broad-based disc osteophyte complex slightly eccentric to theleft. There is mild central canal stenosis and mild left neural foraminalstenosis.C6-C7: Mild to moderate broad-based disc osteophyte complex. There ismoderate central canal stenosis, with the canal measuring 8.5 mm AP. Thereis bilateral moderate neural foraminal stenosis.IMPRESSIONMild degenerative changes most pronounced at C5-C6 and C6-C7 as above.RL: 460AF: [id number] signed by Minal Vaughan MD, PhD at 02/05/2020 12:59 AMUnTexas [facility] MoundOCCULT (GUAIAC) [id number] 14:40:00 Test Item Value Reference Range Interpretation Comments Occult (guaiac) Blood (test code = Negative Negative 2335-8) Lab Interpretation (test code = Normal 97894-8) [facility] HospitalN-TERMINAL [id number] 10:32:00 Test Item Value Reference Range Interpretation Comments NT-proBNP (test code 403 pg/mL See_Comment H [Autom ated = 0690150483) message] The system which generated this result transmitted reference range : <=125. The reference range was not used to interpret this result as normal/abnormal . KIM (test code = KIM) Biotin has been reported to cause a negative bias, interpret results relative to patient's use of biotin. Lab Interpretation Abnormal (test code = 82512-6) [facility]. METABOLIC PANEL (24602)2020-02-04 10:24:00 Test Item Value Reference Range Interpretation Comments NA (test code = 138 mmol/L 135-145 7031003138) K (test code = 3.7 mmol/L 3.5-5 5999004077) CL (test code = 106 mmol/L 98-108 7043156769) CO2 TOTAL (test code = 27 mmol/L 23-31 0526679362) AGAP (test code = 2-16 4767875425) BUN (test code = 9 mg/dL 7-23 0275934588) GLUCOSE (test code = 105 mg/dL 70-110 2157350084) CREATININE (test code = 0.59 mg/dL 0.5-1.04 1569887865) TOTAL BILI (test code = 0.9 mg/dL 0.1-1.6 5980457856) CALCIUM (test code = 9.0 mg/dL 8.6-10.6 0499994381) T PROTEIN (test code = 6.4 g/dL 6.3-8.2 6909783759) ALBUMIN (test code = 3.2 g/dL 3.5-5 L 5139465031) ALK PHOS (test code = 486 U/L 34-122 H 8601819899) ALTv (test code = 91 U/L 5-35 H 1742-6) AST(SGOT) (test code = 41 U/L 13-40 H 7899120573) eGFR Calculation mL/min/1.73m2 (Non-) (test code = 0024873534) eGFR Calculation mL/min/1.73m2 () (test code = 8050955869) KIM (test code = KIM) Association of [...] tests). Lab Interpretation Abnormal (test code = 94623-9) [facility] HospitalMAGNESIUM2020-10-22 10:24:00 Test Item Value Reference Range Interpretation Comments MAGNESIUM (test code = 6670589792) 1.8 mg/dL 1.7-2.4 Lab Interpretation (test code = Normal 38819-5) [facility] with [id number] 10:11:00 Test Item Value Reference Range Interpretation [...] RDW-SD (test code = 47.9 fL 39-49.9 15712-1) RDW-CV (test code = 13.7 % 12-15.5 788-0) PLT (test code = See_Comment [Automated 777-3) message] The sy stem which generated this result transmitted reference range : 166 - 358 10*3/ ?L. The reference r luca was not used to interpret this result as normal/abnormal . MPV (test code = 8.5 fL 9.5-12.9 L 57320-1) NRBC/100 WBC (test See_Comment [Automat ed code = 6785645767) message] The system which generated this result transmitted reference range : 0.0 - 10.0 /100 WBCs. The refer ence range was not u sed to interpret th is result as normal/abnormal . NRBC x10^3 (test code <0.01 See_Comment [Auto mated = 3413804856) message] The s ystem which generated this result transmitted reference range : 10*3/?L. The reference range was not used to interpret this result as normal/abnormal . GRAN MAT (NEUT) % 74.2 % (test code = 770-8) IMM GRAN % (test code 0.40 % = 2412084381) LYMPH % (test code = 16.6 % 736-9) MONO % (test code = 6.8 % 5905-5) EOS % (test code = 1.7 % 713-8) BASO % (test code = 0.3 % 706-2) GRAN MAT x10^3(ANC) 5.60 10*3/uL 1.88-7.09 (test code = 4001310395) IMM GRAN x10^3 (test 0.03 10*3/uL 0-0.06 code = 4427869118) LYMPH x10^3 (test code 1.25 10*3/uL 1.32-3.29 L = 731-0) MONO x10^3 (test code 0.51 10*3/uL 0.33-0.92 = 742-7) EOS x10^3 (test code = 0.13 10*3/uL 0.03-0.39 711-2) BASO x10^3 (test code <0.03 0.01-0.07 = 704-7) Lab Interpretation Abnormal (test code = 40314-7) [facility] HospitalANTI-NUCLEAR ANTIBODY [id number] 19:43:00 Test Item Value Reference Range Interpretation Comments LESLY (test code = Negative Negative 1008857098) KIM (test code = KIM) Cytoplasmic staining reactions observed. Negative - No Anti-Nuclear Antibodies detected by IFA.Positive - LESLY IFA screen performed with a 1:80 dilution in adults and a 1:40 dilution in pediatrics. Any LESYL "Positive" will have titer performed and reported separately. Lab Interpretation (test Normal code = 73441-3) [facility] HospitalCERULOPLASMIN2020-10-21 18:45:00 Test Item Value Reference Range Interpretation Comments CERULO (test code = 2743953529) 55 mg/dL 25-63 Lab Interpretation (test code = Normal 52595-0) [facility] HospitalAMMONIA, [id number] 17:29:00 Test Item Value Reference Range Interpretation Comments AMMONIA (test code = 9821642907) <9 9-33 L Lab Interpretation (test code = Abnormal 35643-2) [facility] HospitalBLOOD CULTURE [id number] 17:07:00 Test Item Value Reference Range Interpretation Comments Blood Culture-Aerobic Culture positive. No growth AA P revious (test code = 31782-9) See Blood Culture p reliminary Workup for verified result additional was Culture In information. Progress on 01/31/2020 at 1701 CDTPreviou s preliminary verified result was No growth a t 24 hours on 02/01/2020 at 1401 CDT Blood No organisms No growth Previous Culture-Anaerobic isolated preliminar y (test code = 53007-8) verifi ed result was Culture In Progress on 01/31/2020 at 1701 CDTPreviou s preliminary verified result was No growth a t 24 hours on 02/01/2020 at 1401 CDT Lab Interpretation Abnormal (test code = 20311-9) [facility] [id number] 17:07:00 Test Item Value Reference Range Interpretation [...] positive cocci is no longer being reported. [facility] HospitalCREATINE [id number] 10:44:00 Test Item Value Reference Range Interpretation Comments CK (test code = 8147499980) 21 U/L 33-194 L Lab Interpretation (test code = Abnormal 19664-0) [facility] HospitalN-TERMINAL [id number] 09:34:00 Test Item Value Reference Range Interpretation Comments NT-proBNP (test code 850 pg/mL See_Comment H [Autom ated = 3716090426) message] The system which generated this result transmitted reference range : <=125. The reference range was not used to interpret this result as normal/abnormal . KIM (test code = KIM) Biotin has been reported to cause a negative bias, interpret results relative to patient's use of biotin. Lab Interpretation Abnormal (test code = 51620-9) [facility]. METABOLIC PANEL (15859)2020-02-03 09:26:00 Test Item Value Reference Range Interpretation Comments NA (test code = 136 mmol/L 135-145 3698999715) K (test code = 3.6 mmol/L 3.5-5 0876379652) CL (test code = 104 mmol/L 98-108 7001092334) CO2 TOTAL (test code = 28 mmol/L 23-31 9393967952) AGAP (test code = 2-16 6390281908) BUN (test code = 7 mg/dL 7-23 8644885834) GLUCOSE (test code = 138 mg/dL 70-110 H 9784443968) CREATININE (test code = 0.61 mg/dL 0.5-1.04 3992240826) TOTAL BILI (test code = 1.0 mg/dL 0.1-1.9 5704481477) CALCIUM (test code = 9.2 mg/dL 8.6-10.6 1362992149) T PROTEIN (test code = 6.6 g/dL 6.3-8.2 9460622338) ALBUMIN (test code = 3.5 g/dL 3.5-5 6753768484) ALK PHOS (test code = 584 U/L 34-122 H 5530858575) ALTv (test code = 131 U/L 5-35 H 1742-6) AST(SGOT) (test code = 49 U/L 13-40 H 3458318629) eGFR Calculation mL/min/1.73m2 (Non-) (test code = 7596865728) eGFR Calculation mL/min/1.73m2 () (test code = 9937019551) KIM (test code = KIM) Association of [...] tests). Lab Interpretation Abnormal (test code = 94934-8) [facility]2020-10-21 09:26:00 Test Item Value Reference Range Interpretation Comments MAGNESIUM (test code = 3502138762) 1.7 mg/dL 1.7-2.4 Lab Interpretation (test code = Normal 47563-2) [facility] HospitalPHOSPHORUS2020-10-21 09:26:00 Test Item Value Reference Range Interpretation Comments PHOSPHORUS (test code = 4613454916) 4.1 mg/dL 2.5-5 Lab Interpretation (test code = Normal 35065-5) [facility] HospitalURIC [id number] 09:26:00 Test Item Value Reference Range Interpretation Comments URIC ACID (test code = 4807386755) 3.4 mg/dL 2.9-6 Lab Interpretation (test code = Normal 07676-4) [facility] WITH [id number] 08:58:00 Test Item Value Reference Range Interpretation Comments WBC (test code = See_Comment [Automated 7590-2) message] The sy stem which generated this result transmitted reference range : 4.30 - 11.10 10*3/?L. The reference range was not used to interpret this result as normal/abnormal . RBC (test code = See_Comment L [Automated 559-8) message] The sy stem which generated this [...] RDW-SD (test code = 47.2 fL 39-49.9 27958-3) RDW-CV (test code = 13.2 % 12-15.5 788-0) PLT (test code = See_Comment [Automated 777-3) message] The sy stem which generated this result transmitted reference range : 166 - 358 10*3/ ?L. The reference r luca was not used to interpret this result as normal/abnormal . MPV (test code = 8.7 fL 9.5-12.9 L 06026-2) NRBC/100 WBC (test See_Comment [Automat ed code = 0772577412) message] The system which generated this result transmitted reference range : 0.0 - 10.0 /100 WBCs. The refer ence range was not u sed to interpret th is result as normal/abnormal . NRBC x10^3 (test code <0.01 See_Comment [Auto mated = 1132593278) message] The s ystem which generated this result transmitted reference range : 10*3/?L. The reference range was not used to interpret this result as normal/abnormal . GRAN MAT (NEUT) % 78.4 % (test code = 770-8) IMM GRAN % (test code 0.50 % = 9656815998) LYMPH % (test code = 12.5 % 736-9) MONO % (test code = 6.1 % 5905-5) EOS % (test code = 2.1 % 713-8) BASO % (test code = 0.4 % 706-2) GRAN MAT x10^3(ANC) 6.43 10*3/uL 1.88-7.09 (test code = 1311500122) IMM GRAN x10^3 (test 0.04 10*3/uL 0-0.06 code = 9829012621) LYMPH x10^3 (test code 1.02 10*3/uL 1.32-3.29 L = 731-0) MONO x10^3 (test code 0.50 10*3/uL 0.33-0.92 = 742-7) EOS x10^3 (test code = 0.17 10*3/uL 0.03-0.39 711-2) BASO x10^3 (test code 0.03 10*3/uL 0.01-0.07 = 704-7) Lab Interpretation Abnormal (test code = 23301-5) [facility] HospitalVALPROIC ACID, [id number] 05:42:00 Test Item Value Reference Range Interpretation Comments Valproic Acid, Free <2.0 4-15 L (test code = 8512361251) KIM (test code = KIM) Toxic Range: ? Greater than 15 ug/mL Test developed and characteristics determined by [facility]. Lab Interpretation Abnormal (test code = 18478-6) [facility] HospitalHAV ANTIBODY (IGG AND IGM)2020-02-03 04:20:00 Test Item Value Reference Range Interpretation Comments HAV Total (test code Positive = 1235802932) HAVT Semi-Quantitative (test code = 7154169516) KIM (test code = KIM) Indicates past or present infection with HAV or exposure to HAV due to vaccination. [facility] B SURFACE [id number] 04:12:00 Test Item Value Reference Range Interpretation Comments HBsAB (test code = Negative 9956595905) HBsAb mIU/mL Semi-Quantitative (test code = 7772856549) KIM (test code = Interpretation: KIM) ?Hepatitis B Surface Antibody ? Negative - Patient is considered to be not immune to infection with HBV. ? ? Positive - Anti-HBs detected at greater than or equal to 12 mIU/mL. ?Patient is considered to be immune to infection with HBV. ? [facility] HospitalHCV [id number] 04:12:00 Test Item Value Reference Range Interpretation Comments HCV Ab (test code = 46693-7) Negative HCV Semi-Quantitative (test code = 08747-9) [facility] B SURFACE [id number] 03:55:00 Test Item Value Reference Range Interpretation Comments HBsAg Semi-Quantitative (test code = Negative Negative 5195-3) [facility] HospitalPROCALCITONIN2020-10-21 03:54:00 Test Item Value Reference Range Interpretation Comments Procalcitonin (test 0.05 ng/mL <0.07 code = 8363422558) KIM (test code = KIM) INTERPRETATION OF [...] lung abscess/empyema. For further information please refer to:[email or web address] Lab Interpretation Normal (test code = 63003-3) [facility] HospitalGLYCOSYLATED HEMOGLOBIN (A1C)2020-02-02 22:47:00 Test Item Value Reference Range Interpretation Comments HGB A1C (test code = 4.5 % 4-6 4548-4) KIM (test code = KIM) %A1C (NGSP) Interpretation (ADA)4.8-5.6 ? ? Normal or (Non-Diabetic Range)5.7-6.4 ? ? Increased Risk (Pre-Diabetic)>6.5 ?Diabetes Indicated Lab Interpretation Normal (test code = 55461-7) [facility] HospitalVALPROIC ACID, [id number] 22:28:00 Test Item Value Reference Range Interpretation Comments VALPROIC A (test code = <10 50-100 L 5879736462) KIM (test code = KIM) Toxic Range: ?Greater than 100 ug/mL Lab Interpretation (test Abnormal code = 09486-5) [facility] HospitalLIPID PANEL (75806)(TOTAL CHOLESTEROL, TRIGLYCERIDES, HDL)2020-02-02 21:23:00 Test Item Value Reference Range Interpretation Comments CHOL (test code = 343 mg/dL 120-200 H 6677016400) HDL (test code = 87 mg/dL >50 1069183793) HDLC RATIO (test code = See_Comment [Au tomated message] 0842497163) The system [employer] generated this result transmit gulshan reference range : <=4.5. The refe rence range was not u sed to interpret th is result as normal/abnormal . TRIG (test code = 131 mg/dL 30-170 0317085000) LDL CHOL (test code = 230 mg/dL See_Comment H [Auto mated message] 36956-5) The system [employer] generated this result transmit gulshan reference range : <=160. The refe rence range was not u sed to interpret th is result as normal/abnormal . VLDL (test code = 26 mg/dL 5-60 1281670458) Lab Interpretation (test Abnormal code = 48633-3) [facility] HospitalPROTHROMBIN TIME / [id number] 21:16:00 Test Item Value Reference Range Interpretation Comments PROTIME PATIENT (test See_Comment [Auto mated message] code = 5964-2) The system [employer] generated this result transmitted ref erence range: 12.0 - 1 4.7 Seconds. The re ference range was not u sed to interpret this result as normal/abnor mal. INR (test code = 6301-6) Nor mal INR <1.1; Warfarin Therap eutic range 2.0 to 3. 0 or 2.5 to 3.5, dep ending upon the indica tions. Lab Interpretation (test Normal code = 48479-7) [facility] HospitalCREATINE [id number] 21:15:00 Test Item Value Reference Range Interpretation Comments CK (test code = 4175592162) 37 U/L 33-194 Lab Interpretation (test code = Normal 11154-2) [facility] HospitalLIPASE2020-10-20 12:34:00 Test Item Value Reference Range Interpretation Comments LIPASE (test code = 3131761247) 203 U/L 0-220 Lab Interpretation (test code = Normal 86079-0) [facility] HospitalCOMP. METABOLIC PANEL (48011)2020-02-02 12:34:00 Test Item Value Reference Range Interpretation Comments NA (test code = 135 mmol/L 135-145 5438689619) K (test code = 3.5 mmol/L 3.5-5 2648171337) CL (test code = 103 mmol/L 98-108 2009675960) CO2 TOTAL (test code = 25 mmol/L 23-31 7810003217) AGAP (test code = 2-16 6890723048) BUN (test code = 8 mg/dL 7-23 4137007034) GLUCOSE (test code = 148 mg/dL 70-110 H 8745454218) CREATININE (test code = 0.55 mg/dL 0.5-1.04 4261528395) TOTAL BILI (test code = 1.2 mg/dL 0.1-1.1 H 5366635022) CALCIUM (test code = 9.4 mg/dL 8.6-10.6 0994337501) T PROTEIN (test code = 6.9 g/dL 6.3-8.2 3021003838) ALBUMIN (test code = 3.6 g/dL 3.5-5 3552744888) ALK PHOS (test code = 723 U/L 34-122 H 5610744063) ALTv (test code = 166 U/L 5-35 H 1742-6) AST(SGOT) (test code = 72 U/L 13-40 H 8116734698) eGFR Calculation mL/min/1.73m2 (Non-) (test code = 4529668527) eGFR Calculation mL/min/1.73m2 () (test code = 5377129807) KIM (test code = KIM) Association of [...] tests). Lab Interpretation Abnormal (test code = 51091-8) [facility]2020-10-20 12:32:00 Test Item Value Reference Range Interpretation Comments Wisner (test code = 0.4 mmol/L 0.6-1.2 L 8305358403) KIM (test code = KIM) Toxic Range: ? Greater than 1.2 mmol/L Lab Interpretation (test Abnormal code = 07016-4) [facility] HospitalPOCT GLUCOSE (AUTOMATED)2020-02-02 11:34:00 Test Item Value Reference Range Interpretation Comments POCT GLU (test code = 7742720470) 138 mg/dL 70-110 H Lab Interpretation (test code = Abnormal 61433-7) [facility] HospitalCOMP. METABOLIC PANEL (45093)2020-02-02 10:51:00 Test Item Value Reference Range Interpretation Comments NA (test code = 129 mmol/L 135-145 L 8437788003) K (test code = 3.0 mmol/L 3.5-5 L 4306737119) CL (test code = 100 mmol/L 98-108 0146572759) CO2 TOTAL (test code = 22 mmol/L 23-31 L 9296805840) AGAP (test code = 2-16 3850479505) BUN (test code = 8 mg/dL 7-23 7209051430) GLUCOSE (test code = 632 mg/dL 70-110 HH 7059762684) CREATININE (test code = 0.54 mg/dL 0.5-1.04 5766520155) TOTAL BILI (test code = 1.0 mg/dL 0.1-1.1 5854622010) CALCIUM (test code = 7.9 mg/dL 8.6-10.6 L 7254962214) T PROTEIN (test code = 5.3 g/dL 6.3-8.2 L 3807849793) ALBUMIN (test code = 2.7 g/dL 3.5-5 L 6343459250) ALK PHOS (test code = 562 U/L 34-122 H 1295205392) ALTv (test code = 138 U/L 5-35 H 1742-6) AST(SGOT) (test code = 61 U/L 13-40 H 4978044476) eGFR Calculation mL/min/1.73m2 (Non-) (test code = 9813903866) eGFR Calculation mL/min/1.73m2 () (test code = 3200365791) KIM (test code = KIM) Association of [...] tests). Lab Interpretation Abnormal (test code = 64447-6) [facility]00 Test Item Value Reference Range Interpretation Comments LIPASE (test code = 4368287962) 140 U/L 0-220 Lab Interpretation (test code = Normal 82229-0) [facility]UM2020-[facility] 10:37:00 Test Item Value Reference Range Interpretation Comments Wisner (test code = 0.5 mmol/L 0.6-1.2 L 9501116343) KIM (test code = KIM) Toxic Range: ? Greater than 1.2 mmol/L Lab Interpretation (test Abnormal code = 38629-5) [facility] WITH [id number] 09:57:00 Test Item Value Reference Range Interpretation Comments WBC (test code = See_Comment [Automated 2790-2) message] The sy stem which generated this [...] RDW-SD (test code = 47.2 fL 39-49.9 41605-4) RDW-CV (test code = 13.1 % 12-15.5 788-0) PLT (test code = See_Comment [Automated 777-3) message] The sy stem which generated this result transmitted reference range : 166 - 358 10*3/ ?L. The reference r luca was not used to interpret this result as normal/abnormal . MPV (test code = 9.7 fL 9.5-12.9 85813-4) NRBC/100 WBC (test See_Comment [Automat ed code = 9833326433) message] The system which generated this result transmitted reference range : 0.0 - 10.0 /100 WBCs. The refer ence range was not u sed to interpret th is result as normal/abnormal . NRBC x10^3 (test code <0.01 See_Comment [Auto mated = 7151909315) message] The s ystem which generated this result transmitted reference range : 10*3/?L. The reference range was not used to interpret this result as normal/abnormal . GRAN MAT (NEUT) % 78.6 % (test code = 770-8) IMM GRAN % (test code 0.50 % = 8829360029) LYMPH % (test code = 13.1 % 736-9) MONO % (test code = 5.5 % 5905-5) EOS % (test code = 2.0 % 713-8) BASO % (test code = 0.3 % 706-2) GRAN MAT x10^3(ANC) 5.18 10*3/uL 1.88-7.09 (test code = 7226379761) IMM GRAN x10^3 (test 0.03 10*3/uL 0-0.06 code = 4300271518) LYMPH x10^3 (test code 0.86 10*3/uL 1.32-3.29 L = 731-0) MONO x10^3 (test code 0.36 10*3/uL 0.33-0.92 = 742-7) EOS x10^3 (test code = 0.13 10*3/uL 0.03-0.39 711-2) BASO x10^3 (test code <0.03 0.01-0.07 = 704-7) Lab Interpretation Abnormal (test code = 04424-0) [facility] HospitalGRAM POSITIVE BLOOD PATHOGENS DNA [id number] 06:56:00 Test Item Value Reference Range Interpretation Comments Coagulase Negative Positive Negative, See A Staphylococcus (test Comment/Narrative code = 92443-6) KIM (test code = KIM) Coagulase negative [...] contact the Antimicrobial Stewardship Program with questions.Pager: ?[phone] Testing included eleven identification and three resistance marker targets. Lab Interpretation Abnormal (test code = 17473-4) [facility] HospitalLAB ONLY COVID [id number] 20:46:00COVID DMT InterpretationInterpretation/Recommendations\\nTests (PCR) for Active Infection by COVID-19Virus: This patient has tested negative for the COVID-19 virus on two occasions. ?For approximately two-thirds of patients with a negative test result who were tested only once, the patient is truly negative and has not been infected with the COVID-19 virus. However, for those tested using a nasopharyngeal sample, each time the PCR test is performed there is approximately a dje-rw-pvahe chance the patient had been infected and the result of the test is a false negative. This occurs because thevirus is predominantly in the lung and out [...] IgM and/or IgG Antibodies to COVID- 19 Virus:A. ?A test for IgM antibody to the COVID-19 virus would be highly informative at this time. IgM antibodies to the COVID-19 virus identified in a high performing test, usually an MELONY or chemiluminescence based assay, should appear in most patients who are truly infected within approximately one week f rom the onset of symptoms, and in nearly [...] be collected 2 or more weeks post onsetof symptoms. The test for IgM and IgG antibodies can be performed using a single blood sample. ?It is the IgG antibodies that can confer long-term immunity to infectious agents. However, at this time, it is not known if the production of IgG antibodies indicates whether the patient is immune to futureinfections with the COVID-19 virus. It is also not known how long IgG antibodies to the COVID-19 virus persist, and therefore the length of immunity to future COVID-19 infections. C. ?Although it is unc ommon, some patients cannot ever mount an antibody response to infectious agents, such as COVID-19. If there are persistently negative results for IgM and IgG antibodies, this may be the explanation.[facility] SERVICESCOVID WyqqhdqENNL-CmN-0 Rapid ID NOW (no units) ? ? Date ? Value ? 01/31/2020 ? Not Detected ? ? ? 08/21/2019 ? Not Detected ? [facility] SERVICESUn[facility] BLOOD [id number] 19:37:00 Test Item Value Reference Range Interpretation Comments PH (test code = 7.32-7.42 L 3259714580) PCO2 SANDHYA (test code = See_Comment [Auto mated message] 9424798303) The system [employer] generated this result transmitted ref erence range: 41 - 51 mmHg. The reference r luca was not used to interpret this result as normal/abnor mal. PO2 SANDHYA (test code = See_Comment HH [Autom ated message] 9846048777) The system [employer] generated this result transmitted ref erence range: 25 - 40 mmHg. The reference r luca was not used to interpret this result as normal/abnor mal. HCO3 SANDHYA (test code = See_Comment L [Auto mated message] 4371277746) The system [employer] generated this result transmitted ref erence range: 24 - 28 mEq/L. The reference r luca was not used to interpret this result as normal/abnor mal. AC VBE(BEAKER) (test mEq/L code = 9595812616) Lab Interpretation (test Abnormal code = 21052-2) [facility] HospitalUS ABDOMEN [id number] 17:02:17 No sonographic findings to explain patient's [...] diameter, normal. Noabnormal dilatation within the mid ordistal abdominal aorta. Results portions of the IVC appear unremarkable. [facility], Radiant Results Inft User - 02/01/2020 12:03 PM CDTRIGHT UPPER QUADRANT ABDOMINAL SONOGRAMTECHNIQUE: Grayscale and limitedcolor Doppler images of the right upperquadrant of the abdomen were obtained.INDICATION: Transaminitis and acute renal failure.COMPARISON: 12/18/2019FINDINGS: Limited exam due to patient body habitus andinability tocooperate during the exam.Liver measures 13.3 cm [...] or extrahepatic biliary ductal dilatation.Right kidney measures 10.3x 4.5 x 5.2 cm. Left kidney measures 11.2 x 4.9x 4.6 cm. No hydronephrosis or nephrolithiasis. Preservation of normalcorticomedullary differentiation. No appreciable atrophy or corticalthinning.Enlarged spleen measures 14.5 cm and clinical dimension.Visualized portions of the pancreatic head appear unremarkable. Majority ofthe pancreatic body, tail and uncinate process is obscured by bowel gasand/or not well seen.Proximal abdominal aorta measures 2.4 cm in AP diameter, normal. Noabnormal dilatation within the mid or distal abdominal aorta.Results portions of the IVC appear unremarkable.IMPRESSIONNosonographic findings to explain patient's transaminitis.Status post cholecystectomy.Normal sonographic appearance of bilateral kidneys. No appreciable atrophyor cortical thinning. No hydronephrosis.[facility] HospitalUrine [id number] 16:35:00 Test Item Value Reference Range Interpretation Comments URINE CULTURE (test No aerobic growth (< code = 630-4) 1000 CFU/mL) [facility] HospitalDIFF CONSULT [id number] 15:41:00 MATURE LEUKOCYTES WITH REACTIVE LYMPHOCYTES, REACTIVE MONOCYTES AND OCCASIONAL TOXIC NEUTROPHILS. RARE HYPERSEGMENTED NEUTROPHILS. MACROCYTIC ANEMIA WITH POLYCHROMASIA AND POIKILOCYTOSIS INCLUDING BURRCELLS AND TARGET CELLS. THESE CHANGES ARE SUGGESTIVE OF EARLY VITAMIN B12 DEFICIENCY ANEMIA. AMPLE PLATELETS. [facility] HospitalPOIL GLUCOSE (AUTOMATED)2020-02-01 13:06:00 Test Item Value Reference Range Interpretation Comments POCT GLU (test code = 8248992724) 104 mg/dL 70-110 Lab Interpretation (test code = Normal 05321-5) [facility] HospitalCOMP. METABOLIC PANEL (31281)2020-02-01 13:00:00 Test Item Value Reference Range Interpretation Comments NA (test code = 139 mmol/L 135-145 5534643797) K (test code = 4.1 mmol/L 3.5-5 6778334299) CL (test code = 112 mmol/L 98-108 H 1756468968) CO2 TOTAL (test code = 20 mmol/L 23-31 L 7120959362) AGAP (test code = 2-16 5789826187) BUN (test code = 16 mg/dL 7-23 0800071571) GLUCOSE (test code = 99 mg/dL 70-110 5989032483) CREATININE (test code = 0.85 mg/dL 0.5-1.04 6588132804) TOTAL BILI (test code = 1.3 mg/dL 0.1-1.1 H 8233777894) CALCIUM (test code = 8.6 mg/dL 8.6-10.6 1939485159) T PROTEIN (test code = 6.2 g/dL 6.3-8.2 L 6955390117) ALBUMIN (test code = 3.2 g/dL 3.5-5 L 1899415406) ALK PHOS (test code = 646 U/L 34-122 H 7310152794) ALTv (test code = 209 U/L 5-35 H 1742-6) AST(SGOT) (test code = 110 U/L 13-40 H 6038197857) eGFR Calculation mL/min/1.73m2 (Non-) (test code = 8808675060) eGFR Calculation mL/min/1.73m2 () (test code = 5832337308) KIM (test code = KIM) Association of [...] tests). Lab Interpretation Abnormal (test code = 10497-1) [facility] HospitalLIPASE2020-10-19 11:07:00 Test Item Value Reference Range Interpretation Comments LIPASE (test code = 8307460719) 353 U/L 0-220 H Lab Interpretation (test code = Abnormal 47581-6) [facility] HospitalLITHIUM2020-10-19 11:05:00 Test Item Value Reference Range Interpretation Comments Wisner (test code = 1.0 mmol/L 0.6-1.2 8006447176) KIM (test code = KIM) Toxic Range: ? Greater than 1.2 mmol/L Lab Interpretation (test Normal code = 91621-0) [facility] HospitalCB with [id number] 10:56:00 Test Item Value Reference Range Interpretation Comments WBC (test code = See_Comment [Automated 0690-2) message] The sy stem which generated this [...] RDW-SD (test code = 49.7 fL 39-49.9 03368-2) RDW-CV (test code = 13.2 % 12-15.5 788-0) PLT (test code = See_Comment L [Automated 777-3) message] The sy stem which generated this result transmitted reference range : 166 - 358 10*3/ ?L. The reference r luca was not used to interpret this result as normal/abnormal . MPV (test code = 9.7 fL 9.5-12.9 04531-2) NRBC/100 WBC (test See_Comment [Automat ed code = 9548762004) message] The system which generated this result transmitted reference range : 0.0 - 10.0 /100 WBCs. The refer ence range was not u sed to interpret th is result as normal/abnormal . NRBC x10^3 (test code <0.01 See_Comment [Auto mated = 5734526017) message] The s ystem which generated this result transmitted reference range : 10*3/?L. The reference range was not used to interpret this result as normal/abnormal . GRAN MAT (NEUT) % 79.3 % (test code = 770-8) IMM GRAN % (test code 0.40 % = 3565049740) LYMPH % (test code = 11.4 % 736-9) MONO % (test code = 6.1 % 5905-5) EOS % (test code = 2.6 % 713-8) BASO % (test code = 0.2 % 706-2) GRAN MAT x10^3(ANC) 4.30 10*3/uL 1.88-7.09 (test code = 4094574536) IMM GRAN x10^3 (test <0.03 0-0.06 code = 7971047200) LYMPH x10^3 (test code 0.62 10*3/uL 1.32-3.29 L = 731-0) MONO x10^3 (test code 0.33 10*3/uL 0.33-0.92 = 742-7) EOS x10^3 (test code = 0.14 10*3/uL 0.03-0.39 711-2) BASO x10^3 (test code <0.03 0.01-0.07 = 704-7) Lab Interpretation Abnormal (test code = 28128-9) [facility] HospitalAD OR PERICO ZARATE - [id number] 09:27:00 Test Item Value Reference Range Interpretation Comments RPR (Qualitative) (test code = Nonreactive Nonreactive 54794-7) Lab Interpretation (test code = Normal 73841-4) [facility] HospitalVITAMIN B12, [id number] 06:47:00 Test Item Value Reference Range Interpretation Comments VIT B12 (test code = 257 pg/mL 240-930 2263632326) KIM (test code = KIM) Biotin has been reported to cause a positive bias, interpret results relative to patient's use of biotin. Lab Interpretation (test Normal code = 88969-3) [facility] HospitalFOLATE2020-10-19 06:46:00 Test Item Value Reference Range Interpretation Comments FOLATE SER (test code = 15.7 ng/mL 3-20 Biot in has been 0415997643) reported to cau se a positive bias, interpret resul ts relative to patient's use o f biotin. Lab Interpretation (test Normal code = 95790-8) [facility] HospitalOSMOLALITY [id number] 05:47:00 Test Item Value Reference Range Interpretation Comments OSMOLALITY (test code = See_Comment [Au tomated message] 9443545925) The system [employer] generated this result transmitted ref erence range: 278 - 30 5 mOsm/kg. The re ference range was not u sed to interpret this result as normal/abnor mal. Lab Interpretation (test Normal code = 25180-3) [facility] HospitalFERRITIN [id number] 01:01:00 Test Item Value Reference Range Interpretation Comments FERRITIN (test code = 234.0 ng/mL 11-264 6291914671) KIM (test code = KIM) Biotin has been reported to cause a negative bias, interpret results relative to patient's use of biotin. Lab Interpretation (test Normal code = 12162-8) [facility] HospitalTHYROID STIMULATING [id number] 23:14:00 Test Item Value Reference Range Interpretation Comments TSH (test code = See_Comment Biotin has been 5526227705) reported to cau se a negative bias, interpret resul ts relative to pat ient's use of biotin. [Automated mess age] The system [employer] generated this result transmitted ref erence range: 0.45 - 4 .70 mIU/L. The refe rence range was not u sed to interpret this result as normal/abnor mal. Lab Interpretation (test Normal code = 50112-7) [facility] HospitalIRON [id number] 22:39:00 Test Item Value Reference Range Interpretation Comments IRON (test code = 68 ug/dL 50-160 Slight hem olysis 9199822769) TIBC (test code = 271 ug/dL 250-410 2205563524) % FE SAT (test code = 25 % 20-50 0739219339) Lab Interpretation (test Normal code = 44524-6) [facility] HospitalRETICULOCYTES [id number] 21:52:00 Test Item Value Reference Range Interpretation Comments RETIC Count Automated 2.17 % 0.51-1.9 H (test code = 2664966454) RETIC Absolute Count See_Comment [Autom ated message] (test code = 6936832828) The system which generated this result transmitted ref erence range: 0.0230 - 0.0950 10*6/?L. The reference range was not used to int erpret this result as normal/abnormal . IRF % (test code = 9.20 % 2.1-12.6 2417571909) RETIC-HE (test code = 35.1 pg 28.1-35.8 7044129233) Lab Interpretation (test Abnormal code = 53827-3) [facility] HospitalABG+COOX+NA+K+GLU+CA2+2020-01-31 20:41:00 Test Item Value Reference Range Interpretation Comments PH (test code = 2) 7.35-7.45 L PCO2 (test code = See_Comment H [Automate d message] 9063839199) The system [employer] generated this result transmit gulshan reference range : 35 - 45 mmHg. The reference range was not used to interpret this result as normal/abnormal . PO2 (test code = See_Comment L [Automated message] 8332363815) The system [employer] generated this result transmit gulshan reference range : 80 - 100 mmHg. The reference range was not used to interpret this result as normal/abnormal . HCO3 (test code = See_Comment L [Automate d message] 8886916616) The system [employer] generated this result transmit gulshan reference range : 22 - 26 mEq/L. The reference range was not used to interpret this result as normal/abnormal . BE (test code = See_Comment L [Automated message] 9291064070) The system [employer] generated this result transmit gulshan reference range : -3.0 - 3.0 mEq/ L. The reference r luca was not used to interpret this result as normal/abnormal . THB (test code = 9.8 g/dL 12-16 L 3720264881) %O2HB (test code = 94.0 % 94-99 9947951856) %COHB ART (test code = 0.0 % 0-1.5 1802088325) %METHB ART (test code = 0.3 % 0.4-1.5 L 2267095165) VOL%O2 ART (test code = 13.0 % 15-23 L 4995549764) NA (test code = 137 mmol/L 135-145 2200729222) K+ (test code = 4.0 mmol/L 3.5-5 8806686718) AC CA IONZ (test code = 5.10 mg/dL 4.5-5.3 9660615469) GLUCOSE (test code = 100 mg/dL 70-110 3693834682) Lab Interpretation Abnormal (test code = 68737-2) [facility] HospitalVALPROIC ACID, [id number] 19:51:00 Test Item Value Reference Range Interpretation Comments VALPROIC A (test code = <10 50-100 L 9507307509) KIM (test code = KIM) Toxic Range: ?Greater than 100 ug/mL Lab Interpretation (test Abnormal code = 52295-6) [facility] HospitalACETAMINOPHEN2020-10-18 19:42:00 Test Item Value Reference Range Interpretation Comments ACETAMINOP (test code = <10.0 10-30 L 9198074942) KIM (test code = KIM) Toxic: Greater than 200 ug/mL @ 4 hour post ingestion or greater than 50 ug/mL @ 12 hour post ingestion Lab Interpretation (test Abnormal code = 70906-9) [facility] HospitalLITHIUM2020-10-18 19:41:00 Test Item Value Reference Range Interpretation Comments Wisner (test code = 1.4 mmol/L 0.6-1.2 H 0302251396) KIM (test code = KIM) Toxic Range: ? Greater than 1.2 mmol/L Lab Interpretation (test Abnormal code = 61328-7) [facility] HospitalSALICYLATE2020-10-18 19:41:00 Test Item Value Reference Range Interpretation Comments SALICYLATE (test code <10 mg/L = 9469128482) KIM (test code = KIM) Therapeutic Range: ? Analgesic and Antipyretic Use ? 20-100 mg/L ? ? Anti-Inflammatory Use ? 100-250 mg/L Toxic Range: ? Greater than 300 mg/L [facility] 1 [id number] 17:46:20Impression: No acute cardiopulmonary disease. RL: ?2601 AFC: ?83830 Chest, one view History: ?AMS . Altered [...] lungs.IMPRESSIONImpression: No acute cardiopulmonary disease. RL: 2601AFC: [id number] signed by Gatito Saul MD at 01/31/2020 12:46 [facility]Un[facility] 1 Dype3051-21-76 17:42:04 1. Nonobstructive intestinal bowel gas pattern. RL: ?2601 AFC: ?66794 CLINICAL INFORMATION: Abdominal pain. Altered state of [...] separate images.Small amount of gas within the stoma ch. Bladder surgically absent. Gas andstool noted in the colon. No dilated loops of small bowel.IMPRESSION1. 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 ?No acute intracranial process. [...] mass, midline shift, mass effect is identified.Several hemispheresare within normal limits. Aspect score: 10. Basal cisterns are normal. Bone windows demonstrate a normal appearance of the skull base. Minimalfluid is noted in the right mastoid air cells. The paranasal sinuses are within normal limits. Included portions of the orbits are normal. The cranium is withinnormal limits without evidence for fracture. [facility], Radiant Results Inft User - 01/31/2020 12:06 PM CDTExam: CT HEAD WO CONTRASTClinical History: Altered mental status (AMS), unclear cause Technique:Thin section CT brain with multiplanar reformatsComparison: CT brain dated 01/02/2019Findings: Brainstem,cerebellum are within normal limits. Ventricles are normal.There [...] acute intracranial process.2. Small right mastoid effusion.[facility] / [facility] - DRUG SCREEN [id number] 16:57:00 Test Item Value Reference Range Interpretation Comments BENZO U (test code = Presumptive Negative A 3589778848) Positive SLIM U (test code = Negative Negative 3580304674) AMPHET (test code = Negative Negative 5778621648) THC (test code = Negative Negative 3592729523) METHADONE (test code Negative Negative = 1399451808) Meth U (test code = Negative Negative 5299122130) OPIATES (test code = Negative Negative 0899671190) Cocaine Metabolite Negative Negative (test code = 3178543789) PROPOXY (test code = Negative Negative 8140043413) Tric U (test code = Presumptive Negative A Confirma tion of 3987712423) Positive Presumptive Positive TCA result requires physician order and this will b e sent to referen ce lab. PCP (test code = Negative Negative 5359204090) OXYCOD (test code = Negative Negative 8883545105) KIM (test code = Urine Drug Cutoff [...] testing). Lab Interpretation Abnormal (test code = 21478-5) [facility] HospitalUrinalysis2020-10-18 16:54:00 Test Item Value Reference Range Interpretation Comments APPEARANCE (test code = Hazy Clear A 4362645225) COLOR (test code = Romelia Yellow A 1252150707) PH (test code = 4.8-8.0 1671239951) SP GRAVITY (test code = 1.003-1.030 6221128300) GLU U QUAL (test code = Normal Normal 8362908122) BLOOD (test code = Negative Negative 9604748193) KETONES (test code = Negative Negative 1145599183) PROTEIN (test code = 30 mg/dL Negative A 2887-8) UROBILIN (test code = 4.0 mg/dL Normal A 6523506116) BILIRUBIN (test code = Negative Negative 8357120553) NITRITE (test code = Negative Negative 5947536204) LEUK NICHOLE (test code = 25/uL Negative A 0034582829) RBC/HPF (test code = See_Comment [Autom ated message] 6195264083) The system [employer] generated this result transmit gulshan reference range : 0 - 3 HPF. The refe rence range was not u sed to interpret th is result as normal/abnormal . WBC/HPF (test code = See_Comment H [Autom ated message] 9406179135) The system [employer] generated this result transmit gulshan reference range : 0 - 5 HPF. The refe rence range was not u sed to interpret th is result as normal/abnormal . BACTERIA (test code = Few Negative A 1616050998) MUCOUS (test code = Moderate Negative LPF A 3117660964) SQ EPITH (test code = HPF 1723194496) HYAL CAST (test code = See_Comment H [Aut omated message] 9565340319) The system [employer] generated this result transmit gulshan reference range : <=2 LPF. The refere nce range was not u sed to interpret th is result as normal/abnormal . GRAN CASTS (test code = See_Comment H [Au tomated message] 4812100940) The system [employer] generated this result transmit gulshan reference range : <=1 LPF. The refere nce range was not u sed to interpret th is result as normal/abnormal . Lab Interpretation (test Abnormal code = 06356-0) [facility] HospitalCOVID-19 (ID NOW RAPID TESTING)2020-01-31 16:39:00 Test Item Value Reference Range Interpretation Comments SARS-CoV-2 Rapid ID NOW Not Detected Not Detected (test code = 82557-6) KIM (test code = KIM) ID NOW COVID-19 Assay is an isothermal nucleic acid amplification test intended for the qualitative detection of nucleic acid from SARS-CoV-2 viral RNA in nasopharyngeal (CHIP UNLOAD[employer]) specimens. It is used under Emergency Use [...] indicated. Lab Interpretation Normal (test code = 69352-1) [facility] HospitalTranthonyliza [id number] 16:38:00 Test Item Value Reference Range Interpretation Comments TROPONIN I (test <0.012 See_Comment [Automated code = 0981486746) message] The system which generated this result [...] ? Lab Interpretation Normal (test code = 25356-8) [facility] [id number] 16:34:00 Test Item Value Reference Range Interpretation Comments NT-proBNP (test code 283 pg/mL See_Comment H [Autom ated = 7940005080) message] The system which generated this result transmitted reference range : <=125. The reference range was not used to interpret this result as normal/abnormal . KIM (test code = KIM) Biotin has been reported to cause a negative bias, interpret results relative to patient's use of biotin. Lab Interpretation Abnormal (test code = 61927-9) [facility] (NA, K, CL, CO2, GLUCOSE, BUN, CREATININE, CA)2020-01-31 16:26:00 Test Item Value Reference Range Interpretation Comments NA (test code = 134 mmol/L 135-145 L 2721007180) K (test code = 4.9 mmol/L 3.5-5 2188099143) CL (test code = 107 mmol/L 98-108 4805929779) CO2 TOTAL (test code = 19 mmol/L 23-31 L 5319111941) AGAP (test code = 2-16 0322829974) BUN (test code = 30 mg/dL 7-23 H 8176240790) GLUCOSE (test code = 106 mg/dL 70-110 4559538767) CREATININE (test code = 2.21 mg/dL 0.5-1.04 H 1472028100) CALCIUM (test code = 9.5 mg/dL 8.6-10.6 7562667354) eGFR Calculation mL/min/1.73m2 (Non-) (test code = 0370225145) eGFR Calculation mL/min/1.73m2 () (test code = 3181164577) KIM (test code = KIM) Association of [...] tests). Lab Interpretation Abnormal (test code = 32259-9) [facility] (ALB, T.PRO, BILI T, BU/BC, ALT, AST, ALK PHOS)2020-01-31 16:26:00 Test Item Value Reference Range Interpretation Comments TOTAL BILI (test code = 4601604704) 1.5 mg/dL 0.1-1.1 H BILI UNCON (test code = 6624618015) 0.4 mg/dL 0.1-1.1 BILI CONJ (test code = 8015347097) 0.0 mg/dL 0-0.3 T PROTEIN (test code = 0566068564) 8.0 g/dL 6.3-8.2 ALBUMIN (test code = 1415153173) 4.0 g/dL 3.5-5 ALK PHOS (test code = 3330278603) 714 U/L 34-122 H ALTv (test code = 1742-6) 352 U/L 5-35 H AST(SGOT) (test code = 6175711321) 256 U/L 13-40 H Lab Interpretation (test code = Abnormal 98044-7) [facility] HospitalLipase [id number] 16:26:00 Test Item Value Reference Range Interpretation Comments LIPASE (test code = 6277784791) 410 U/L 0-220 H Lab Interpretation (test code = Abnormal 93525-4) [facility] HospitalAMMONIA, [id number] 16:25:00 Test Item Value Reference Range Interpretation Comments AMMONIA (test code = 32 umol/L 9-33 Slight hemolysis 9372494824) Lab Interpretation (test Normal code = 37988-7) [facility] HospitalCBC with [id number] 16:13:00 Test Item Value Reference Range Interpretation Comments WBC (test code = See_Comment [Automated 6690-2) message] The sy stem which generated this result transmitted reference range : 4.30 - 11.10 10*3/?L. The reference range was not used to interpret this result as normal/abnormal . RBC (test code = See_Comment L [Automated 349-8) message] The sy stem which generated this [...] (test code = 51.4 fL 39-49.9 H 78341-9) RDW-CV (test code = 13.7 % 12-15.5 788-0) PLT (test code = See_Comment [Automated 777-3) message] The sy stem which generated this result transmitted reference range : 166 - 358 10*3/ ?L. The reference r luca was not used to interpret this result as normal/abnormal . MPV (test code = 10.3 fL 9.5-12.9 79060-4) NRBC/100 WBC (test See_Comment [Automat ed code = 2786499146) message] The system which generated this result transmitted reference range : 0.0 - 10.0 /100 WBCs. The refer ence range was not u sed to interpret th is result as normal/abnormal . NRBC x10^3 (test code <0.01 See_Comment [Auto mated = 6556320750) message] The s ystem which generated this result transmitted reference range : 10*3/?L. The reference range was not used to interpret this result as normal/abnormal . GRAN MAT (NEUT) % 77.1 % (test code = 770-8) IMM GRAN % (test code 0.40 % = 5268814983) LYMPH % (test code = 12.2 % 736-9) MONO % (test code = 5.7 % 5905-5) EOS % (test code = 4.3 % 713-8) BASO % (test code = 0.3 % 706-2) GRAN MAT x10^3(ANC) 5.97 10*3/uL 1.88-7.09 (test code = 3570211095) IMM GRAN x10^3 (test 0.03 10*3/uL 0-0.06 code = 0730140417) LYMPH x10^3 (test code 0.94 10*3/uL 1.32-3.29 L = 731-0) MONO x10^3 (test code 0.44 10*3/uL 0.33-0.92 = 742-7) EOS x10^3 (test code = 0.33 10*3/uL 0.03-0.39 711-2) BASO x10^3 (test code <0.03 0.01-0.07 = 704-7) Lab Interpretation Abnormal (test code = 07639-9) [facility] HospitalLactic Acid Whole [id number] 16:03:00 Test Item Value Reference Range Interpretation Comments LACTIC ACID (test code = 1.03 mmol/L 0.3-2.6 3368417089) Lab Interpretation (test code = Normal 01513-8) [facility] HospitalCT ABDOMEN PELVIS W [id number] 23:00:141. ?Mild circumferential urinary bladder wall thickening [...] contrast material.Coronal and sagittal MPR images also generated. INTRAVENOUS [...] contrast material.Coronal and sagittal MPR images also generated.INTRAVENOUS CONTRAST ADMINISTRATION (mL Omnipaque 350): 120.FINDINGS: Lower chest: Clear lung bases.ABDOMEN AND PELVISLiver: No focal hepatic lesion identified.Biliary Tract/GB: Status post cholecystectomy. Small central pneumobiliawith gas extending into the nondilated CBD. No biliary ductal dilatat ion.Spleen: No splenomegaly.Pancreas: Technically indeterminate 1.3 cm hypoattenuation [...] pneumoperitoneum.Vasculature: Within normal limits.Lymph Nodes: Within normal limits. Pelvic organs: Circumferential urinary bladder wall thickening out ofproportion to degree of distention and with subtle urothelialhyperenhancement. Uterus and ovaries are unremarkable for patient's age.Abdominal/Pelvic Wall: Tiny fat-containing umbilical hernia.BONES: No acute or aggressive osseous un remarkable. No laryngealdegenerative changes scattered throughout the visualized [...] the pancreatic duct, unchanged since February2019. Recommend MRI/MRCP.[facility] HospitalTroponin [id number] 21:36:00 Test Item Value Reference Range Interpretation Comments TROPONIN I (test <0.012 See_Comment [Automated code = 5968250573) message] The system which generated this result [...] ? Lab Interpretation Normal (test code = 04497-4) [facility] HospitalUrinalysis2020-09-04 21:30:00 Test Item Value Reference Range Interpretation Comments APPEARANCE (test code = Clear Clear 7004214008) COLOR (test code = Yellow Yellow 8656030550) PH (test code = 4.8-8.0 6559852010) SP GRAVITY (test code = 1.003-1.030 9898931795) GLU U QUAL (test code = Normal Normal 7666925616) BLOOD (test code = Negative Negative 1750432212) KETONES (test code = Negative Negative 0269701579) PROTEIN (test code = Negative Negative 2887-8) UROBILIN (test code = 4.0 mg/dL Normal A 0984160179) BILIRUBIN (test code = Negative Negative 9084772940) NITRITE (test code = Negative Negative 4217455188) LEUK NICHOLE (test code = Negative Negative 6759519105) RBC/HPF (test code = See_Comment [Autom ated message] 7782364912) The system [employer] generated this result transmit gulshan reference range : 0 - 3 HPF. The refe rence range was not u sed to interpret th is result as normal/abnormal . WBC/HPF (test code = See_Comment [Autom ated message] 7368677869) The system [employer] generated this result transmit gulshan reference range : 0 - 5 HPF. The refe rence range was not u sed to interpret th is result as normal/abnormal . BACTERIA (test code = Few Negative A 0086011371) MUCOUS (test code = Slight Negative LPF A 3808548261) SQ EPITH (test code = HPF 3873985941) HYAL CAST (test code = See_Comment [Aut omated message] 4383008706) The system [employer] generated this result transmit gulshan reference range : <=2 LPF. The refere nce range was not u sed to interpret th is result as normal/abnormal . Lab Interpretation (test Abnormal code = 92866-2) [facility] with [id number] 21:29:00 Test Item Value Reference Range Interpretation Comments WBC (test code = See_Comment L [Automated 6690-2) message] The sy stem which generated this result transmitted reference range : 4.30 - 11.10 10*3/?L. The reference range was not used to interpret this result as normal/abnormal . RBC (test code = See_Comment L [Automated 469-8) message] The sy stem which generated this [...] (test code = 54.6 fL 39-49.9 H 28171-6) RDW-CV (test code = 14.9 % 12-15.5 788-0) PLT (test code = See_Comment L [Automated 777-3) message] The sy stem which generated this result transmitted reference range : 166 - 358 10*3/ ?L. The reference r luca was not used to interpret this result as normal/abnormal . MPV (test code = 9.5 fL 9.5-12.9 96519-0) IPF % (test code = 1.5 % 1.3-7.7 Platelet count 5395759624) measured by fluorescence method. NRBC/100 WBC (test See_Comment [Automat ed code = 8383383473) message] The system which generated this result transmitted reference range : 0.0 - 10.0 /100 WBCs. The refer ence range was not u sed to interpret th is result as normal/abnormal . NRBC x10^3 (test code <0.01 See_Comment [Auto mated = 1651123594) message] The s ystem which generated this result transmitted reference range : 10*3/?L. The reference range was not used to interpret this result as normal/abnormal . GRAN MAT (NEUT) % 64.0 % (test code = 770-8) IMM GRAN % (test code 1.00 % = 6043150352) LYMPH % (test code = 22.5 % 736-9) MONO % (test code = 11.0 % 5905-5) EOS % (test code = 1.0 % 713-8) BASO % (test code = 0.5 % 706-2) GRAN MAT x10^3(ANC) 2.61 10*3/uL 1.88-7.09 (test code = 7902086126) IMM GRAN x10^3 (test 0.04 10*3/uL 0-0.06 code = 8950635365) LYMPH x10^3 (test code 0.92 10*3/uL 1.32-3.29 L = 731-0) MONO x10^3 (test code 0.45 10*3/uL 0.33-0.92 = 742-7) EOS x10^3 (test code = 0.04 10*3/uL 0.03-0.39 711-2) BASO x10^3 (test code <0.03 0.01-0.07 = 704-7) Lab Interpretation Abnormal (test code = 42801-8) [facility] Metabolic Panel (NA, K, CL, CO2, GLUCOSE, BUN, CREATININE, CA)2019-12-18 21:25:00 Test Item Value Reference Range Interpretation Comments NA (test code = 138 mmol/L 135-145 9980440770) K (test code = 4.8 mmol/L 3.5-5 8708114953) CL (test code = 104 mmol/L 98-108 6778597330) CO2 TOTAL (test code = 27 mmol/L 23-31 2231927312) AGAP (test code = 2-16 8148292060) BUN (test code = 12 mg/dL 7-23 6165699642) GLUCOSE (test code = 101 mg/dL 70-110 7386959997) CREATININE (test code 0.70 mg/dL 0.5-1.04 = 8932380341) CALCIUM (test code = 9.3 mg/dL 8.6-10.6 4391094422) eGFR Calculation mL/min/1.73m2 (Non-) (test code = 6662041156) eGFR Calculation mL/min/1.73m2 () (test code = 2295543369) KIM (test code = KIM) Association of [...] or urine or abnormalities in imaging tests). [facility]Hep[facility] Function Panel (ALB, T.PRO, BILI T, BU/BC, ALT, AST, ALK PHOS)2019-12-18 21:25:00 Test Item Value Reference Range Interpretation Comments TOTAL BILI (test code = 7818126488) 1.0 mg/dL 0.1-1.1 BILI UNCON (test code = 5661583817) 0.6 mg/dL 0.1-1.1 BILI CONJ (test code = 3771284457) 0.0 mg/dL 0-0.3 T PROTEIN (test code = 4760872042) 7.8 g/dL 6.3-8.2 ALBUMIN (test code = 0000515563) 4.3 g/dL 3.5-5 ALK PHOS (test code = 7805763594) 580 U/L 34-122 H ALTv (test code = 1742-6) 199 U/L 5-35 H AST(SGOT) (test code = 8218651279) 215 U/L 13-40 H Lab Interpretation (test code = Abnormal 32483-7) [facility] HospitalLipase [id number] 21:25:00 Test Item Value Reference Range Interpretation Comments LIPASE (test code = 3950165370) 267 U/L 0-220 H Lab Interpretation (test code = Abnormal 55798-9) [facility] HospitalXR CHEST 1 VW [id number] 02:17:38 No findings suggestive of COVID-19 pneumonia. Disclaimer: Generally, the findings on chest imaging in COVID-19 are notspecific, and overlap with other infections, including influenza, H1N1,SARS and MERS.According to the Centers for Disease Control (CDC) and the [employer], viral testing remains the only specific method of diagnosiseven if CXR or CT findings are suggestive of COVID-19. Preliminary Report Dictated by Resident: Ritchie Malik MD., have reviewed this study and agree with the abovereport.PROCEDURE: CHEST XRAY CLINICAL INDICATION: chest pain COMPARISON:Chest radiograph 02/23/2019 FINDINGS: The lungs are clear [...] calcified granuloma at theright lung, unchanged. No pleuraleffusion or pneumothorax is detected.The heart is mildly enlarged. No acute bony abnormality.IMPRESSIONNo findings suggestive of COVID-19 pneumonia.Disclaimer: Generally, the findings on chest imaging in COVID-19 are notspecific, and overlap with other infections, including influenza, H1N1,SARS and MERS.According to the Centers for Disease Control (CDC) and the [employer], viral testing remains the only specific method of diagnosiseven if CXR or CT findings are suggestive of COVID-19. Preliminary Report Dictated by Resident: Ritchie Merchant MD., have reviewed this study and agree with the abovereport.[facility] CORONAVIRUS COVID-19 [id number] 02:11:00 Test Item Value Reference Range Interpretation Comments SARS-CoV-2 (test code = Not Detected Not Detected 77700-3) KIM (test code = KIM) ID NOW COVID-19 Assay is an isothermal nucleic acid amplification test intended for the qualitative detection of nucleic acid from SARS-CoV-2 viral RNA in nasopharyngeal (CHIP UNLOADER) specimens. It is used under Emergency Use [...] indicated. Lab Interpretation Normal (test code = 64762-2) [facility] HospitalTROPONIN [id number] 01:42:00 Test Item Value Reference Range Interpretation Comments TROPONIN I (test <0.012 See_Comment [Automated code = 6946962824) message] The system which generated this result [...] ? Lab Interpretation Normal (test code = 42994-4) [facility] HospitalCOMP. METABOLIC PANEL (33530)2019-08-22 01:30:00 Test Item Value Reference Range Interpretation Comments NA (test code = 142 mmol/L 135-145 8508658653) K (test code = 4.1 mmol/L 3.5-5 0551259661) CL (test code = 106 mmol/L 98-108 1575335985) CO2 TOTAL (test code = 28 mmol/L 23-31 7538030259) AGAP (test code = 2-16 4867557886) BUN (test code = 16 mg/dL 7-23 0729665430) GLUCOSE (test code = 141 mg/dL 70-110 H 8636970206) CREATININE (test code = 0.75 mg/dL 0.5-1.04 4146184870) TOTAL BILI (test code = 0.8 mg/dL 0.1-1.2 3010792844) CALCIUM (test code = 9.6 mg/dL 8.6-10.6 1673212553) T PROTEIN (test code = 7.8 g/dL 6.3-8.2 7034248345) ALBUMIN (test code = 4.1 g/dL 3.5-5 6339568595) ALK PHOS (test code = 664 U/L 34-122 H 2504938547) ALTv (test code = 82 U/L 5-35 H 1742-6) AST(SGOT) (test code = 111 U/L 13-40 H 9689469607) eGFR Calculation mL/min/1.73m2 (Non-) (test code = 2553815184) eGFR Calculation mL/min/1.73m2 () (test code = 2141367645) KIM (test code = KIM) Association of [...] tests). Lab Interpretation Abnormal (test code = 84487-1) [facility] HospitalLIPASE, [id number] 01:30:00 Test Item Value Reference Range Interpretation Comments LIPASE (test code = 1779077078) 87 U/L 0-220 Lab Interpretation (test code = Normal 15546-4) [facility] HospitalaPTT2020-05-09 01:29:00 Test Item Value Reference Range Interpretation Comments APTT Patient (test See_Comment [Automat ed code = 3173-2) message] The system which generated this result transmitted reference range : 23 - 38 Seconds . The reference range was not used to interpr et this result as normal/abnormal . KIM (test code = KIM) The [facility] patient population mean normal value for aPTT is 30 seconds. Lab Interpretation Normal (test code = 61369-5) [facility] HospitalPROTHROMBIN TIME / [id number] 01:27:00 Test Item Value Reference Range Interpretation [...] tions. Lab Interpretation (test Normal code = 61159-4) [facility] HospitalURINALYSIS2020-05-09 01:25:00 Test Item Value Reference Range Interpretation Comments APPEARANCE (test code = Hazy Clear A 2995042782) COLOR (test code = Romelia Yellow A 8456643449) PH (test code = 4.8-8.0 0584652186) SP GRAVITY (test code = 1.003-1.030 7400169964) GLU U QUAL (test code = Normal Normal 3019698457) BLOOD (test code = Negative Negative 6274236216) KETONES (test code = Negative Negative 1961301757) PROTEIN (test code = 30 mg/dL Negative A 2887-8) UROBILIN (test code = 4.0 mg/dL Normal A 2263063978) BILIRUBIN (test code = Negative Negative 1149160245) NITRITE (test code = Positive Negative A 1331080028) LEUK NICHOLE (test code = 500/uL Negative A 3957897301) RBC/HPF (test code = See_Comment H [Autom ated message] 2222908433) The system [employer] generated this result transmit gulshan reference range : 0 - 3 HPF. The refe rence range was not u sed to interpret th is result as normal/abnormal . WBC/HPF (test code = See_Comment H [Autom ated message] 7346322058) The system [employer] generated this result transmit gulshan reference range : 0 - 5 HPF. The refe rence range was not u sed to interpret th is result as normal/abnormal . BACTERIA (test code = Many Negative A 9553663021) MUCOUS (test code = Moderate Negative LPF A 7740793368) SQ EPITH (test code = HPF 3421715867) Lab Interpretation (test Abnormal code = 76211-4) [facility] WITH [id number] 01:18:00 Test Item Value Reference Range Interpretation [...] RDW-SD (test code = 44.3 fL 39-49.9 72610-2) RDW-CV (test code = 12.6 % 12-15.5 788-0) PLT (test code = See_Comment [Automated 777-3) message] The sy stem which generated this result transmitted reference range : 166 - 358 10*3/ ?L. The reference r luca was not used to interpret this result as normal/abnormal . MPV (test code = 9.1 fL 9.5-12.9 L 54088-6) NRBC/100 WBC (test See_Comment [Automat ed code = 3493771243) message] The system which generated this result transmitted reference range : 0.0 - 10.0 /100 WBCs. The refer ence range was not u sed to interpret th is result as normal/abnormal . NRBC x10^3 (test code <0.01 See_Comment [Auto mated = 3183354274) message] The s ystem which generated this result transmitted reference range : 10*3/?L. The reference range was not used to interpret this result as normal/abnormal . GRAN MAT (NEUT) % 71.0 % (test code = 770-8) IMM GRAN % (test code 1.70 % = 3084360810) LYMPH % (test code = 16.1 % 736-9) MONO % (test code = 9.8 % 5905-5) EOS % (test code = 1.1 % 713-8) BASO % (test code = 0.3 % 706-2) GRAN MAT x10^3(ANC) 2.47 10*3/uL 1.88-7.09 (test code = 7838961680) IMM GRAN x10^3 (test 0.06 10*3/uL 0-0.06 code = 6156618509) LYMPH x10^3 (test code 0.56 10*3/uL 1.32-3.29 L = 731-0) MONO x10^3 (test code 0.34 10*3/uL 0.33-0.92 = 742-7) EOS x10^3 (test code = 0.04 10*3/uL 0.03-0.39 711-2) BASO x10^3 (test code <0.03 0.01-0.07 = 704-7) Lab Interpretation Abnormal (test code = 64863-5) [facility] HospitalTroponin [id number] 23:39:00 Test Item Value Reference Range Interpretation Comments TROPONIN I (test 0.005 ng/mL See_Comment [Automated code = 8925790244) message] The system which generated this result [...] ? Lab Interpretation Normal (test code = 46693-1) [facility] HospitalBasi Metabolic Panel (NA, K, CL, CO2, GLUCOSE, BUN, CREATININE, CA)2019-06-25 23:27:00 Test Item Value Reference Range Interpretation Comments NA (test code = 138 mmol/L 135-145 7501499495) K (test code = 4.3 mmol/L 3.5-5 8746108432) CL (test code = 103 mmol/L 98-108 1183354465) CO2 TOTAL (test code = 27 mmol/L 23-31 2303149883) AGAP (test code = 2-16 9558759217) BUN (test code = 16 mg/dL 7-23 2737938774) GLUCOSE (test code = 106 mg/dL 70-110 1151648365) CREATININE (test code 0.66 mg/dL 0.5-1.04 = 1610633378) CALCIUM (test code = 9.1 mg/dL 8.6-10.6 0149103896) eGFR Calculation mL/min/1.73m2 (Non-) (test code = 7380103094) eGFR Calculation mL/min/1.73m2 () (test code = 5956211493) KIM (test code = KIM) Association of [...] or urine or abnormalities in imaging tests). [facility] HospitalLipase [id number] 23:27:00 Test Item Value Reference Range Interpretation Comments LIPASE (test code = 8629972089) 55 U/L 0-220 Lab Interpretation (test code = Normal 63241-3) [facility] HospitalHepatic Function Panel (ALB, T.PRO, BILI T, BU/BC, ALT, AST, ALK PHOS)2019-06-25 23:27:00 Test Item Value Reference Range Interpretation Comments TOTAL BILI (test code = 4129959359) 1.0 mg/dL 0.1-1.1 BILI UNCON (test code = 2689363632) 0.2 mg/dL 0.1-1.1 BILI CONJ (test code = 1074311709) 0.0 mg/dL 0-0.3 T PROTEIN (test code = 4188144857) 7.8 g/dL 6.3-8.2 ALBUMIN (test code = 0671618751) 4.3 g/dL 3.5-5 ALK PHOS (test code = 7185467895) 622 U/L 34-122 H ALTv (test code = 1742-6) 126 U/L 5-35 H AST(SGOT) (test code = 1227680625) 180 U/L 13-40 H Lab Interpretation (test code = Abnormal 41636-0) [facility] HospitalCB WITH [id number] 23:23:00 Test Item Value Reference Range Interpretation [...] (test code = 51.3 fL 39-49.9 H 28068-0) RDW-CV (test code = 14.9 % 12-15.5 788-0) PLT (test code = See_Comment [Automated 777-3) message] The sy stem which generated this result transmitted reference range : 166 - 358 10*3/ ?L. The reference r luca was not used to interpret this result as normal/abnormal . MPV (test code = 9.3 fL 9.5-12.9 L 94096-0) NRBC/100 WBC (test See_Comment [Automat ed code = 1938432750) message] The system which generated this result transmitted reference range : 0.0 - 10.0 /100 WBCs. The refer ence range was not u sed to interpret th is result as normal/abnormal . NRBC x10^3 (test code <0.01 See_Comment [Auto mated = 6312034844) message] The s ystem which generated this result transmitted reference range : 10*3/?L. The reference range was not used to interpret this result as normal/abnormal . GRAN MAT (NEUT) % 67.4 % (test code = 770-8) IMM GRAN % (test code 0.60 % = 8417681082) LYMPH % (test code = 20.6 % 736-9) MONO % (test code = 9.4 % 5905-5) EOS % (test code = 1.7 % 713-8) BASO % (test code = 0.3 % 706-2) GRAN MAT x10^3(ANC) 2.43 10*3/uL 1.88-7.09 (test code = 0418887866) IMM GRAN x10^3 (test <0.03 0-0.06 code = 2017417888) LYMPH x10^3 (test code 0.74 10*3/uL 1.32-3.29 L = 731-0) MONO x10^3 (test code 0.34 10*3/uL 0.33-0.92 = 742-7) EOS x10^3 (test code = 0.06 10*3/uL 0.03-0.39 711-2) BASO x10^3 (test code <0.03 0.01-0.07 = 704-7) Lab Interpretation Abnormal (test code = 77633-3) [facility]URINALYSIS2020-03-12 22:51:00 Test Item Value Reference Range Interpretation Comments APPEARANCE (test code = Clear Clear 2231174126) COLOR (test code = Yellow Yellow 2434852950) PH (test code = 4.8-8.0 0670467852) SP GRAVITY (test code = 1.003-1.030 4389111308) GLU U QUAL (test code = Negative Negative 2864550157) BLOOD (test code = Negative Negative 7786186613) KETONES (test code = Negative Negative 4080939560) PROTEIN (test code = Negative Negative 2887-8) UROBILIN (test code = 1.0 mg/dL See_Comment [Auto mated message] 8614075346) The system [employer] generated this result transmit gulshan reference range : 0-1.0 mg/dL. Th e reference range was not used to interpret this result as normal/abnormal . BILIRUBIN (test code = Small Negative A 4676197525) NITRITE (test code = Negative Negative 2836533568) LEUK NICHOLE (test code = Negative Negative 1760064650) RBC/HPF (test code = See_Comment [Autom ated message] 6681264288) The system [employer] generated this result transmit gulshan reference range : 0 - 3 HPF. The refe rence range was not u sed to interpret th is result as normal/abnormal . WBC/HPF (test code = See_Comment [Autom ated message] 1192206263) The system [employer] generated this result transmit gulshan reference range : 0 - 5 HPF. The refe rence range was not u sed to interpret th is result as normal/abnormal . BACTERIA (test code = Negative Negative 3785180846) Ictotest (test code = Negative 2451542204) Lab Interpretation (test Abnormal code = 66417-5) [facility] HospitalPregnancy Test, [id number] 22:10:00 Test Item Value Reference Range Interpretation Comments PREG SERUM (test code Negative = 4182506969) KIM (test code = KIM) Less than 10 IU/L. ?If low titer or ectopic is suspected, resubmit specimen in 48-72 hours. [facility] WITH [id number] 22:10:00 Test Item Value Reference Range Interpretation [...] RDW-SD (test code = 49.4 fL 39-49.9 05692-2) RDW-CV (test code = 14.6 % 12-15.5 788-0) PLT (test code = See_Comment [Automated 777-3) message] The sy stem which generated this result transmitted reference range : 166 - 358 10*3/ ?L. The reference r luca was not used to interpret this result as normal/abnormal . MPV (test code = 9.1 fL 9.5-12.9 L 54858-0) NRBC/100 WBC (test See_Comment [Automat ed code = 2678147240) message] The system which generated this result transmitted reference range : 0.0 - 10.0 /100 WBCs. The refer ence range was not u sed to interpret th is result as normal/abnormal . NRBC x10^3 (test code <0.01 See_Comment [Auto mated = 0477520608) message] The s ystem which generated this result transmitted reference range : 10*3/?L. The reference range was not used to interpret this result as normal/abnormal . GRAN MAT (NEUT) % 48.3 % (test code = 770-8) IMM GRAN % (test code 0.30 % = 2069454466) LYMPH % (test code = 38.9 % 736-9) MONO % (test code = 9.8 % 5905-5) EOS % (test code = 2.4 % 713-8) BASO % (test code = 0.3 % 706-2) GRAN MAT x10^3(ANC) 1.78 10*3/uL 1.88-7.09 L (test code = 1512580841) IMM GRAN x10^3 (test <0.03 0-0.06 code = 6006229530) LYMPH x10^3 (test code 1.43 10*3/uL 1.32-3.29 = 731-0) MONO x10^3 (test code 0.36 10*3/uL 0.33-0.92 = 742-7) EOS x10^3 (test code = 0.09 10*3/uL 0.03-0.39 711-2) BASO x10^3 (test code <0.03 0.01-0.07 = 704-7) Lab Interpretation Abnormal (test code = 16721-5) [facility] HospitalUrinalysis2020-03-06 20:58:00 Test Item Value Reference Range Interpretation Comments APPEARANCE (test code = Hazy Clear A 9935516044) COLOR (test code = Yellow Yellow 6084247804) PH (test code = 4.8-8.0 8993333646) SP GRAVITY (test code = 1.003-1.030 1535029614) GLU U QUAL (test code = Normal Normal 1683138688) BLOOD (test code = Negative Negative 7270144502) KETONES (test code = Negative Negative 6206196706) PROTEIN (test code = Negative Negative 2887-8) UROBILIN (test code = 4.0 mg/dL Normal A 9178006483) BILIRUBIN (test code = Negative Negative 0611996244) NITRITE (test code = Negative Negative 4286915681) LEUK NICHOLE (test code = Negative Negative 4216931780) RBC/HPF (test code = See_Comment [Autom ated message] 4302599869) The system [employer] generated this result transmit gulshan reference range : 0 - 3 HPF. The refe rence range was not u sed to interpret th is result as normal/abnormal . WBC/HPF (test code = See_Comment [Autom ated message] 8220394560) The system [employer] generated this result transmit gulshan reference range : 0 - 5 HPF. The refe rence range was not u sed to interpret th is result as normal/abnormal . BACTERIA (test code = Many Negative A 3246058345) MUCOUS (test code = Slight Negative LPF A 0997887832) SQ EPITH (test code = HPF 5995771602) HYAL CAST (test code = See_Comment [Aut omated message] 8981706437) The system [employer] generated this result transmit gulshan reference range : <=2 LPF. The refere nce range was not u sed to interpret th is result as normal/abnormal . Lab Interpretation (test Abnormal code = 40868-9) [facility] Metabolic Panel (NA, K, CL, CO2, GLUCOSE, BUN, CREATININE, CA)2019-06-19 20:51:00 Test Item Value Reference Range Interpretation Comments NA (test code = 141 mmol/L 135-145 9540310502) K (test code = 4.5 mmol/L 3.5-5 3763573329) CL (test code = 107 mmol/L 98-108 3332404917) CO2 TOTAL (test code = 25 mmol/L 23-31 9919073494) AGAP (test code = 2-16 0711347486) BUN (test code = 16 mg/dL 7-23 4458712392) GLUCOSE (test code = 89 mg/dL 70-110 8165874430) CREATININE (test code 0.50 mg/dL 0.5-1.04 = 8488309641) CALCIUM (test code = 9.0 mg/dL 8.6-10.6 2090150339) eGFR Calculation mL/min/1.73m2 (Non-) (test code = 8226172930) eGFR Calculation mL/min/1.73m2 () (test code = 6034244065) KIM (test code = KIM) Association of [...] or urine or abnormalities in imaging tests). [facility] HospitalHep[facility] Function Panel (ALB, T.PRO, BILI T, BU/BC, ALT, AST, ALK PHOS)2019-06-19 20:51:00 Test Item Value Reference Range Interpretation Comments TOTAL BILI (test code = 2655865891) 0.9 mg/dL 0.1-1.1 BILI UNCON (test code = 0981075810) 0.5 mg/dL 0.1-1.1 BILI CONJ (test code = 4060068647) 0.0 mg/dL 0-0.3 T PROTEIN (test code = 3934574959) 8.0 g/dL 6.3-8.2 ALBUMIN (test code = 7194009774) 4.3 g/dL 3.5-5 ALK PHOS (test code = 1726215673) 613 U/L 34-122 H ALTv (test code = 1742-6) 115 U/L 5-35 H AST(SGOT) (test code = 0706136041) 157 U/L 13-40 H Lab Interpretation (test code = Abnormal 16081-8) [facility] HospitalLipase [id number] 20:51:00 Test Item Value Reference Range Interpretation Comments LIPASE (test code = 5201832437) 89 U/L 0-220 Lab Interpretation (test code = Normal 63898-9) [facility] HospitalCT ABDOMEN PELVIS W [id number] 03:36:50 No acute intra-abdominal abnormality. Hepatosplenomegaly with [...] reduce radiationdose. FINDINGS: LOWER THORAX: The lungs basesare clear. No cardiomegaly. LIVER: The liver is [...] CT abdomen and pelvis with contrast 02/23/2019, 11/15/2018DOSE: [id number]-548 mGy-cmTECHNIQUE AND FINDINGS: Contiguous [...] hydronephrosis, stones, or masses.PERITONEUM AND RETROPERITONEUM: No free air or fluid.LYMPH NODES: No lymphadenopathy.GI TRACT: No dilation or wall thickening. Prior appendectomy.PELVIS/BLADDER: The uterus and ovaries are unremarkable. The bladder ispartially decompressed.VESSELS: Unremarkable.BONES AND SOFT TISSUES: No suspicious lytic or sclerotic bony lesions. MildL4/L5 spondylosis and left L5/S1 facet arthrosis. IMPRESSIONNo acute intra-abdominal abnormality.Hepatosplenomegaly with diffuse fatty infiltration of the liver. Preliminary Report Dictated by Resident: Apolinar Good MD., have reviewed this study and agree withthe above report.[facility] HospitalComplete Metabolic [id number] 01:38:00 Test Item Value Reference Range Interpretation Comments NA (test code = 141 mmol/L 135-145 3674533095) K (test code = 4.0 mmol/L 3.5-5 5728519566) CL (test code = 105 mmol/L 98-108 8085708074) CO2 TOTAL (test code = 24 mmol/L 23-31 4100656381) AGAP (test code = 2-16 2199481383) BUN (test code = 23 mg/dL 7-23 3021198867) GLUCOSE (test code = 110 mg/dL 70-110 9342669071) CREATININE (test code = 0.68 mg/dL 0.5-1.04 4451724619) TOTAL BILI (test code = 1.0 mg/dL 0.1-1.4 3465882605) CALCIUM (test code = 9.4 mg/dL 8.6-10.6 0727692367) T PROTEIN (test code = 8.1 g/dL 6.3-8.2 6877189690) ALBUMIN (test code = 4.7 g/dL 3.5-5 1505237443) ALK PHOS (test code = 575 U/L 34-122 H 1709239249) ALTv (test code = 112 U/L 5-35 H 1742-6) AST(SGOT) (test code = 112 U/L 13-40 H 9042149894) eGFR Calculation mL/min/1.73m2 (Non-) (test code = 6227809479) eGFR Calculation mL/min/1.73m2 () (test code = 4318431107) KIM (test code = KIM) Association of [...] tests). Lab Interpretation Abnormal (test code = 47761-3) [facility] HospitalLipase, [id number] 01:38:00 Test Item Value Reference Range Interpretation Comments LIPASE (test code = 5222225393) 65 U/L 0-220 Lab Interpretation (test code = Normal 05671-3) [facility] HospitalUrinalysis2020-02-05 01:30:00 Test Item Value Reference Range Interpretation Comments APPEARANCE (test code = Clear Clear 7547938917) COLOR (test code = Romelia Yellow A 4924272277) PH (test code = 4.8-8.0 4216569478) SP GRAVITY (test code = 1.003-1.030 2624537697) GLU U QUAL (test code = Normal Normal 6654257624) BLOOD (test code = Negative Negative 3984235652) KETONES (test code = Negative Negative 2708785435) PROTEIN (test code = Negative Negative 2887-8) UROBILIN (test code = 2.0 mg/dL Normal A 6190998404) BILIRUBIN (test code = Negative Negative 3041205291) NITRITE (test code = Negative Negative 7990117522) LEUK NICHOLE (test code = Negative Negative 2347732327) RBC/HPF (test code = See_Comment H [Autom ated message] 4312067249) The system [employer] generated this result transmit gulshan reference range : 0 - 3 HPF. The refe rence range was not u sed to interpret th is result as normal/abnormal . WBC/HPF (test code = See_Comment [Autom ated message] 4072769797) The system [employer] generated this result transmit gulshan reference range : 0 - 5 HPF. The refe rence range was not u sed to interpret th is result as normal/abnormal . BACTERIA (test code = Few Negative A 0791452197) MUCOUS (test code = Slight Negative LPF A 4699137874) SQ EPITH (test code = HPF 9231544941) Lab Interpretation (test Abnormal code = 91460-4) [facility] HospitalCBC WITH [id number] 01:24:00 Test Item Value Reference Range Interpretation Comments WBC (test code = See_Comment [Automated 3590-2) message] The sy stem which generated this [...] RDW-SD (test code = 49.0 fL 39-49.9 03924-6) RDW-CV (test code = 14.3 % 12-15.5 788-0) PLT (test code = See_Comment [Automated 777-3) message] The sy stem which generated this result transmitted reference range : 166 - 358 10*3/ ?L. The reference r luca was not used to interpret this result as normal/abnormal . MPV (test code = 10.2 fL 9.5-12.9 31614-6) NRBC/100 WBC (test See_Comment [Automat ed code = 4810615616) message] The system which generated this result transmitted reference range : 0.0 - 10.0 /100 WBCs. The refer ence range was not u sed to interpret th is result as normal/abnormal . NRBC x10^3 (test code <0.01 See_Comment [Auto mated = 4134636683) message] The s ystem which generated this result transmitted reference range : 10*3/?L. The reference range was not used to interpret this result as normal/abnormal . GRAN MAT (NEUT) % 65.5 % (test code = 770-8) IMM GRAN % (test code 0.50 % = 9788028283) LYMPH % (test code = 24.7 % 736-9) MONO % (test code = 8.6 % 5905-5) EOS % (test code = 0.5 % 713-8) BASO % (test code = 0.2 % 706-2) GRAN MAT x10^3(ANC) 4.37 10*3/uL 1.88-7.09 (test code = 8938410291) IMM GRAN x10^3 (test 0.03 10*3/uL 0-0.06 code = 0991824906) LYMPH x10^3 (test code 1.64 10*3/uL 1.32-3.29 = 731-0) MONO x10^3 (test code 0.57 10*3/uL 0.33-0.92 = 742-7) EOS x10^3 (test code = 0.03 10*3/uL 0.03-0.39 711-2) BASO x10^3 (test code <0.03 0.01-0.07 = 704-7) Lab Interpretation Abnormal (test code = 22382-9) [facility] HospitalCT ANKLE RIGHT WO [id number] 16:39:33 Distal tibial spiral fracture with entrance [...] step-off deformity. An os trigonum ispresent. Subcutaneous fatstranding is seen along the distal leg and ankle.No tendon entrapment is seen. The ankle mortise is anatomic. [facility], Radiant Results Inft User - 12/05/2018 11:41 AM CDTEXAM:CT ANKLE RIGHT WO CONTRASTHIST ORY:Fracture, ankle COMPARISON:12/01/2018FINDINGS: Multiplanar CT imaging of the right ankle was performed.A comminuted spiral fracture extends through the distal tibialdiametaphysis with extension intothe anterior and lateral aspect of thetibial plafond with no articular step-off deformity. An os trigonum ispresent. Subcutaneous fat stranding is seen along the distal leg and ankle.No tendon entrapment is seen. The ankle mortise is anatomic.IMPRESSIONDistal tibial spiral fracture with entrance into the anterolateral tibialplafond without tibial plafond articular incongruity.[facility] HospitalXR TIBIA FIBULA 2 VW [id number] 20:06:10 Comminuted mildly displaced distal tibia fracture [...] of the intertarsal and TMT joints isidentified. [facility], Radiant Results Inft User - 12/01/2018 3:08 PM CDTEXAM: XR TIBIA FIBULA 2 VW RIGHT, XR FOOT 3+ VW RIGHTHISTORY: 58 years-old Female fall, pain COMPARISON: None.FINDINGS:There is a comminuted mildly displaced fracture involving the distal tibia,with about cortical width posterior displacement of the distal fragment.The fracture lucency extends to the tibial plateau articular surface.A nondisplaced proximal fibular shaftfracture is also identified.Degenerative cystic changes of the first metatarsal head is noted.Mild to moderate osteoarthrosis of the intertarsal and TMT joints isidentified. IMPRESSIONComminuted mildlydisplaced distal tibia fracture extending to the tibialplafond.Nondisplaced proximal fibular shaft fracture. [facility] HospitalXR FOOT 3+ VW [id number] 20:06:10 Comminuted mildly displaced distal tibia fracture extending to the tibialplafond. Nondisplaced proximal fibular shaft fracture. EXAM: XR TIBIA FIBULA 2 VW RIGHT, XR FOOT 3+ VW RIGHT HISTORY: 58 years-old Female fall, pain COMPARISON: None. FINDINGS: There is a comminuted mildly displaced fracture invo lving the distal tibia,with about cortical width posterior [...] tibial plateau articular surface.A nondisplaced proximal fibular shaftfracture is also identified.Degenerative cystic changes of the first metatarsal head is noted.Mild to moderate osteoarthrosis of the intertarsal and TMT joints isidentified. IMPRESSIONComminuted mildlydisplaced distal tibia fracture extending to the tibialplafond.Nondisplaced proximal fibular shaft fracture.[facility] HospitalURINE [id number] 21:51:00 Test Item Value Reference Range Interpretation Comments URINE CULTURE (test 10,000 - 100,000 CFU/mL code = 630-4) mixed aerobic organisms - suggests endogenous microbial contamination [facility] HospitalHELICOBACTER PYLORI AB, [id number] 14:31:00 Test Item Value Reference Range Interpretation Comments Helicobacter pylori IgG Negative Negative Antibody (test code = 5419757210) KIM (test code = KIM) Negative - No H. pylori IgG antibody detected.Positive - Indicates presence of detectable IgG antibodies. Does not distinguish between past or current infection, or between active infection and colonization.Invalid - A second sample should be sent. Lab Interpretation (test Normal code = 10986-0) [facility] HospitalBasic Metabolic Panel (NA, K, CL, CO2, GLUCOSE, BUN, CREATININE, CA)2018-11-16 10:15:00 Test Item Value Reference Range Interpretation Comments NA (test code = 140 mmol/L 135-145 6043240013) K (test code = 3.9 mmol/L 3.5-5 5558584034) CL (test code = 105 mmol/L 98-108 3860692525) CO2 TOTAL (test code = 30 mmol/L 23-31 5130801040) AGAP (test code = 2-16 6683445659) BUN (test code = 16 mg/dL 7-23 3074802433) GLUCOSE (test code = 104 mg/dL 70-110 3336231888) CREATININE (test code 0.52 mg/dL 0.5-1.04 = 8581961737) CALCIUM (test code = 8.6 mg/dL 8.6-10.6 7866401841) eGFR Calculation mL/min/1.73m2 (Non-) (test code = 8177667883) eGFR Calculation mL/min/1.73m2 () (test code = 4573344429) KIM (test code = KIM) Association of [...] or urine or abnormalities in imaging tests). [facility] WITH [id number] 09:47:00 Test Item Value Reference Range Interpretation Comments WBC (test code = See_Comment [Automated 7690-2) message] The sy stem which generated this result transmitted reference range : 4.30 - 11.10 10*3/?L. The reference range was not used to interpret this result as normal/abnormal . RBC (test code = See_Comment L [Automated 089-8) message] The sy stem which generated this [...] RDW-SD (test code = 47.8 fL 39-49.9 66331-9) RDW-CV (test code = 13.5 % 12-15.5 788-0) PLT (test code = See_Comment [Automated 777-3) message] The sy stem which generated this result transmitted reference range : 166 - 358 10*3/ ?L. The reference r luca was not used to interpret this result as normal/abnormal . MPV (test code = 9.9 fL 9.5-12.9 11101-8) NRBC/100 WBC (test See_Comment [Automat ed code = 1795469663) message] The system which generated this result transmitted reference range : 0.0 - 10.0 /100 WBCs. The refer ence range was not u sed to interpret th is result as normal/abnormal . NRBC x10^3 (test code <0.01 See_Comment [Auto mated = 6337133927) message] The s ystem which generated this result transmitted reference range : 10*3/?L. The reference range was not used to interpret this result as normal/abnormal . GRAN MAT (NEUT) % 56.8 % (test code = 770-8) IMM GRAN % (test code 0.40 % = 2769504677) LYMPH % (test code = 27.2 % 736-9) MONO % (test code = 9.1 % 5905-5) EOS % (test code = 5.8 % 713-8) BASO % (test code = 0.7 % 706-2) GRAN MAT x10^3(ANC) 2.55 10*3/uL 1.88-7.09 (test code = 8332064548) IMM GRAN x10^3 (test <0.03 0-0.06 code = 3788712295) LYMPH x10^3 (test code 1.22 10*3/uL 1.32-3.29 L = 731-0) MONO x10^3 (test code 0.41 10*3/uL 0.33-0.92 = 742-7) EOS x10^3 (test code = 0.26 10*3/uL 0.03-0.39 711-2) BASO x10^3 (test code 0.03 10*3/uL 0.01-0.07 = 704-7) Lab Interpretation Abnormal (test code = 91559-0) [facility] HospitalGLYCOSYLATED HEMOGLOBIN (A1C)2018-11-16 04:33:00 Test Item Value [...] Indicated Lab Interpretation Normal (test code = 75275-5) [facility] HospitalHCV [id number] 02:23:00 Test Item Value Reference Range Interpretation Comments HCV Semi-Quantitative (test code = 17225-1) [facility]HE[facility] SURFACE [id number] 02:23:00 Test Item Value Reference Range Interpretation Comments HBsAB (test code = Negative 4737951146) HBsAb mIU/mL Semi-Quantitative (test code = 2191427233) KIM (test code = Interpretation:?Hepatitis KIM) B Surface Antibody? ? Negative - Patient is considered to be not immune to infection with HBV.? Positive - Anti-HBs detected at greater than or equal to 12 mIU/mL.?Patient is considered to be immune to infection with HBV.? [facility] A VIRUS ANTIBODY [id number] 02:11:00 Test Item Value Reference Range Interpretation Comments HAVM Semi-Quantitative (test code = 54044-6) KIM (test code = HAVAb IgM Interpretative KIM) Information:Reactive greater than or equal to 1.2Biotin has been reported to cause a negative bias, interpret results relative to patient's use of biotin. [facility] HospitalHEPATITIS B CORE ANTIBODY [id number] 02:11:00 Test Item Value Reference Range Interpretation Comments HBCM Semi-Quantitative (test code = 87455-0) KIM (test code = Biotin has been reported KIM) to cause a negative bias, interpret results relative to patient's use of biotin. [facility] HospitalABORH [id number] 00:49:22 Test Item Value Reference Range Interpretation Comments ABO & RH (test code O Positive Performe d at [facility] = 20) Laboratory Serv [facility] Blood Bank3 [facility] [address]Rrob Free: [phone] A No. [id number] [facility] HospitalUrinalysis2019-08-04 00:29:00 Test Item Value Reference Range Interpretation Comments APPEARANCE (test code = Clear Clear 8999890820) COLOR (test code = Yellow Yellow 5113182477) PH (test code = 4.8-8.0 5141622134) SP GRAVITY (test code = 1.003-1.030 H 1752727432) GLU U QUAL (test code = Normal Normal 9584115603) BLOOD (test code = Negative Negative 1302419823) KETONES (test code = Negative Negative 7583628497) PROTEIN (test code = Negative Negative 2887-8) UROBILIN (test code = 4.0 mg/dL Normal A 0861683351) BILIRUBIN (test code = Negative Negative 2424977045) NITRITE (test code = Negative Negative 4189682515) LEUK NICHOLE (test code = Negative Negative 1806929704) RBC/HPF (test code = See_Comment H [Autom ated message] 9685064482) The system [employer] generated this result transmit gulshan reference range : 0 - 3 HPF. The refe rence range was not u sed to interpret th is result as normal/abnormal . WBC/HPF (test code = See_Comment [Autom ated message] 8487499067) The system [employer] generated this result transmit gulshan reference range : 0 - 5 HPF. The refe rence range was not u sed to interpret th is result as normal/abnormal . BACTERIA (test code = Negative Negative 4106405840) SQ EPITH (test code = See_Comment [Auto mated message] 7780445260) The system [employer] generated this result transmit gulshan reference range : <=2 HPF. The refere nce range was not u sed to interpret th is result as normal/abnormal . Lab Interpretation (test Abnormal code = 68148-2) [facility] HospitalType and Screen - ONCE [id number] 00:15:31 Test Item Value Reference Range Interpretation Comments ABO & RH (test code O POSITIVE Performe d at [facility] = 20) Laboratory Serv [facility] Blood Bank3 [address] [facility] s [address]Qfda Free: [phone] A No. [id number] IAT (test code = Negative Performed a t [facility] 1185) Laboratory Serv [facility] Blood Bank3 [address] [facility] s [address]Oswq Free: [phone] A No. [id number] [facility] HospitalTROPONIN [id number] 00:04:00 Test Item Value Reference Range Interpretation Comments TROPONIN I (test 0.002 ng/mL See_Comment [Automated code = 8686360733) message] The system which generated this result [...] ? Lab Interpretation Normal (test code = 46190-8) [facility] HospitalLIPID PANEL (04135)(TOTAL CHOLESTEROL, TRIGLYCERIDES, HDL)2018-11-15 23:58:00 Test Item Value Reference Range Interpretation Comments CHOL (test code = 289 mg/dL 120-200 H 7157401862) HDL (test code = 97 mg/dL >50 9594629338) HDLC RATIO (test code = See_Comment [Au tomated message] 8828450035) The system [employer] generated this result transmit gulshan reference range : <=4.5. The refe rence range was not u sed to interpret th is result as normal/abnormal . TRIG (test code = 52 mg/dL 30-170 7175142899) LDL CHOL (test code = 182 mg/dL See_Comment H [Auto mated message] 02256-5) The system [employer] generated this result transmit gulshan reference range : <=160. The refe rence range was not u sed to interpret th is result as normal/abnormal . VLDL (test code = 10 mg/dL 5-60 8225939326) Lab Interpretation (test Abnormal code = 16139-2) [facility] HospitalCT ABDOMEN PELVIS W [id number] 17:09:23 1.?No acute intra-abdominal or pelvic abnormality. [...] seen along the lower lumbar spine.IMPRESSION1. No acute intra-abdominal or pelvic abnormality.2. Splenomegaly, unchanged.[facility] HospitalACETAMINOPHEN 2018-11-15 16:52:00 Test Item Value Reference Range Interpretation Comments ACETAMINOP (test code = <10.0 10-30 L 1193421011) KIM (test code = KIM) Toxic: Greater than 200 ug/mL @ 4 hour post ingestion or greater than 50 ug/mL @ 12 hour post ingestion Lab Interpretation (test Abnormal code = 59726-4) [facility] HospitalXR CHEST 1 [id number] 15:23:59 1.?No acute cardiopulmonary abnormality.* * * * * * * * ORIGINAL REPORT * * * * * * * *EXAM: XR CHEST 1 VW COMPARISON: 03/01/2016 HISTORY: chest pain FINDINGS: Lines/Tubes: None. Lungs: A small calcified granuloma projecting over the right upper lung isunchanged. Mild bibasilar atelectasis is seen. No focal consolidation isidentified. No pleural effusion or pneumothorax is identified. Heart/Mediastin um: The cardiomediastinal silhouette is normal fortechnique. Bones: No acute osseous abnormality is seen. [facility], Radiant Results Inft User - 11/15/2018 [...] cardiomediastinal silhouette is normal fortechnique.Bones: No acute osseous abnormality is seen.IMPRESSION1. No acute cardiopulmonary abnormality.[facility] HospitalTroponin [id number] 15:19:00 Test Item Value Reference Range Interpretation Comments TROPONIN I (test 0.014 ng/mL See_Comment [Automated code = 5371791430) message] The system which generated this result [...] ? Lab Interpretation Normal (test code = 37442-2) [facility] Hospital[facility] XEC-QKZ8503-22-03 15:16:00 Test Item Value Reference Range Interpretation Comments NT-proBNP (test code 29 pg/mL See_Comment [Autom ated = 0496137534) message] The system which generated this result transmitted reference range : <=125. The reference range was not used to interpret this result as normal/abnormal . KIM (test code = KIM) Biotin has been reported to cause a negative bias, interpret results relative to patient's use of biotin. Lab Interpretation Normal (test code = 26075-6) [facility] (NA, K, CL, CO2, GLUCOSE, BUN, CREATININE, CA)2018-11-15 15:07:00 Test Item Value Reference Range Interpretation Comments NA (test code = 142 mmol/L 135-145 9654372319) K (test code = 5.1 mmol/L 3.5-5 H 7226383688) CL (test code = 107 mmol/L 98-108 8615489634) CO2 TOTAL (test code = 26 mmol/L 23-31 1844882281) AGAP (test code = 2-16 2757482255) BUN (test code = 22 mg/dL 7-23 0003070754) GLUCOSE (test code = 93 mg/dL 70-110 6728444567) CREATININE (test code = 0.47 mg/dL 0.5-1.04 L 0163639173) CALCIUM (test code = 8.9 mg/dL 8.6-10.6 2767727789) eGFR Calculation mL/min/1.73m2 (Non-) (test code = 7367532224) eGFR Calculation mL/min/1.73m2 () (test code = 5035811018) KIM (test code = KIM) Association of Glomerular Filtration Rate (GFR) and Staging of Kidney Disease*+ + + +| GFR (mL/min/1.73 m2)?| With Kidney Damage?|?Without Kidney Damage+ --------+ --------+ +|?>90?|?S rosalbae one?|? Normal?+ ---------+ ---------+ +|?60-89? |?Stage two?|? [...] tests). Lab Interpretation Abnormal (test code = 17170-7) [facility] (ALB, T.PRO, BILI T, BU/BC, ALT, AST, ALK PHOS)2018-11-15 15:07:00 Test Item Value Reference Range Interpretation Comments TOTAL BILI (test code = 1631501416) 1.1 mg/dL 0.1-1.1 BILI UNCON (test code = 5020122214) 0.4 mg/dL 0.1-1.1 BILI CONJ (test code = 0630439820) 0.0 mg/dL 0-0.3 T PROTEIN (test code = 1770695102) 8.2 g/dL 6.3-8.2 ALBUMIN (test code = 1322412442) 4.2 g/dL 3.5-5 ALK PHOS (test code = 6074160819) 723 U/L 34-122 H ALT(SGPT) (test code = 9278254035) 196 U/L 9-51 H AST(SGOT) (test code = 1349685322) 194 U/L 13-40 H Lab Interpretation (test code = Abnormal 02550-4) [facility] HospitalLipase Xedng4550-65-22 15:07:00 Test Item Value Reference Range Interpretation Comments LIPASE (test code = 9840306413) 185 U/L 0-220 Lab Interpretation (test code = Normal 12858-8) [facility] HospitalaPTT2019-08-03 14:58:00 Test Item Value Reference Range Interpretation Comments APTT Patient (test See_Comment [Automat ed code = 3173-2) message] The system which generated this result transmitted reference range : 23 - 38 Seconds . The reference range was not used to interpr et this result as normal/abnormal . KIM (test code = KIM) The [facility] patient population mean normal value for aPTT is 30 seconds. Lab Interpretation Normal (test code = 66634-2) [facility] HospitalProthrombin Time (PT) / UGZ2415-33-16 14:55:00 Test Item Value Reference Range Interpretation [...] tions. Lab Interpretation (test Normal code = 19720-9) [facility] HospitalCBC WITH TNDEWVLOXRIK0480-12-12 14:47:00 Test Item Value Reference Range Interpretation Comments WBC (test code = See_Comment [Automated 3790-2) message] The sy stem which generated this result transmitted reference range : 4.30 - 11.10 10*3/?L. The reference range was not used to interpret this result as normal/abnormal . RBC (test code = See_Comment L [Automated 689-8) message] The sy stem which generated this [...] RDW-SD (test code = 47.1 fL 39-49.9 81293-2) RDW-CV (test code = 13.4 % 12-15.5 788-0) PLT (test code = See_Comment [Automated 777-3) message] The sy stem which generated this result transmitted reference range : 166 - 358 10*3/ ?L. The reference r luca was not used to interpret this result as normal/abnormal . MPV (test code = 10.0 fL 9.5-12.9 36520-5) NRBC/100 WBC (test See_Comment [Automat ed code = 3574359047) message] The system which generated this result transmitted reference range : 0.0 - 10.0 /100 WBCs. The refer ence range was not u sed to interpret th is result as normal/abnormal . NRBC x10^3 (test code <0.01 See_Comment [Auto mated = 6584719372) message] The s ystem which generated this result transmitted reference range : 10*3/?L. The reference range was not used to interpret this result as normal/abnormal . GRAN MAT (NEUT) % 54.5 % (test code = 770-8) IMM GRAN % (test code 0.40 % = 1988962491) LYMPH % (test code = 26.5 % 736-9) MONO % (test code = 10.5 % 5905-5) EOS % (test code = 7.4 % 713-8) BASO % (test code = 0.7 % 706-2) GRAN MAT x10^3(ANC) 2.43 10*3/uL 1.88-7.09 (test code = 0016739760) IMM GRAN x10^3 (test <0.03 0-0.06 code = 0036181085) LYMPH x10^3 (test code 1.18 10*3/uL 1.32-3.29 L = 731-0) MONO x10^3 (test code 0.47 10*3/uL 0.33-0.92 = 742-7) EOS x10^3 (test code = 0.33 10*3/uL 0.03-0.39 711-2) BASO x10^3 (test code 0.03 10*3/uL 0.01-0.07 = 704-7) Lab Interpretation Abnormal (test code = 88978-3) [facility] HospitalCultjohn [facility], Ggchx2508-00-01 15:57:00 Test Item Value Reference Range Interpretation Comments Culture, Urine (test NF code = URC) Culture, Urine (test 10 NSF code = URC1) * This is an EDITED result. * A prior r esult that was reported as final has been changed. 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 - Negative for bridging fibrosis and cirrhosis (trichrome and reticulin special stains,both performed with good externalcontrols). - Scattered noncaseating epithelioid granulomas within portal tracts. - Negative for steatosis. - Negative for cholestasis. - Negative for increased hepatocellular iron deposition (Fe special stain performed withgood control). - Negative for neoplasia. Comment: The patient's positive anti-mitochondrial [...] Conway Entered by:07/09/17 - 1430 MAY PROCEDURES: 89257, 45175/4 Patient: ZEKE ALEMAN Re07/03/17Loc: T4-A MR#: [id number] CONTINUED ON NEXT PAGE Dis: 07/09/17ta: DIS IN [address] [address] Laboratory Printed: 07/09/17 [facility] DAEMPathology Page: 2 Patient: ZEKE ALEMAN [id number] (Continued) GROSS DESCRIPTION A. LIVER BIOPSY LEFT LOBE The specimen is received in 10% formalin, and is labeled with the patient's name and "liverbiopsy". The specimen consists of three cores of snow soft tissue ranging from 0.7 to 2.1 cmin length, and each one measures less than 0.1 cm in diameter. The entire specimen issubmitted in onecassette. Dictated by: DANII SHAHID Entered by: 07/08/17 - 1316 [facility].YGP MICROSCOPIC DESCRIPTION A microscopic examination was performed to arrive at the diagnostic conclusion reported. Signed (Electronically Signed) Kelvin 07/09/17 Patient: ZEKE ALEMAN Re07/03/17Loc: T4-A MR#: [id number] END OF REPORT Dis: 07/09/17ta: DIS OJOrzjivytf9161-00-86 05:13:00 Test Item Value Reference Range Interpretation [...] ce Range for = EGFRMDRD) Estimated GFR: Greater than 90 mL/min/ 1.73 m2NOTE:The MDRD equation has no t been validated for u se with theelderly (ove r 70 years of age), women, patients with serious comorbi d condition or pe rsons with extremes o fbody size, muscle ma ss, or nutritional sta tus. Chemistry (test code 101 mg/dL 70-105 N [...] U/L 8-55 H = ALT) Reference Lab Ijfruwe1345-97-47 04:14:00 Test Item Value Reference Range Interpretation Comments Reference Lab 10 U/mL 0-35 Laurent ECLIA Testing (test code methodolo gyPerformed at: HD = CA199) - [facility] [address] [facility] n, [place] [id number] Di aimee: Chico Suero MD, Phone : [phone] Reference Lab Cmakfvo1054-82-33 16:14:00 Test Item Value Reference Range Interpretation Comments Reference Lab Testing 128.5 Units 0.0-20.0 H Negat kourtney 0.0 - 20.0 (test code = MARLON) Equivocal 20.1 - 24.9 Positive >24.9Mitochondr ial (M2) Antibodies are found in 90-96% ofpatients with primary biliary cirrhosis.Perfo rmed at: BN - [facility] haley [address] [place], [place] [id number] Director: Pj Rider MD, [facility] ne: [phone] Reference Lab Sbwamtz9193-52-00 16:14:00 Test Item Value Reference Range Interpretation [...] be based solely onANCA IFA results. The In ternational ANCA Group Consensusrecomm ends follow up testing of p ositive sera with both MA-3 and MPO-ANCA enzyme immunoassays. A s many as 5% serumsamples are positive only b y EIA. Ref. AM J Clin Rkpbso8185;111: 507-513. Reference Lab <1:20 titer Neg:<1:20 The atypical p ANCA pattern Testing (test has been obser chelita in code = ATANCA) asignificant percentage of patients with u lcerative colitis,primary sclerosing cholangitis and autoimmune hepatitis.Perfo rmed at: BN - [facility] [address] [place], [place] [id number] Di aimee: Chester ramírez MD, Phone: [phone] Oxynrsjxg8894-51-56 05:12:00 Test Item Value Reference Range Interpretation [...] = CREATT) Chemistry (test Greater than 90 Reference Range for code = EGFRMDRD) Estimated G FR: Greater than 90 mL/min/1.73 m2NOTE:The MDRD equation [...] 8-55 H code = ALT) Reference Lab Xyoyuuq7263-44-35 22:07:00 Test Item Value Reference Range Interpretation Comments Reference Lab Testing 785 IU/L 39-117 H (test code = ISOALKT) Reference Lab Testing 25 % 14-68 (test code = ISOALKBT) Reference Lab Testing 74 % 18-85 (test code = ISOALKLT) Reference Lab Testing 1 % 0-18 Perfor med at: HD - (test code = ISOALKIT) [facility] [address] [id number] Director: Chico Suero MD, Phone: [phone] [facility] at: [facility] [id number] Di aimee: Chester ramírez MD, Phone: [phone] Ippgpjtcm5676-81-95 11:48:00 Test Item Value Reference Range Interpretation [...] code = ALT) 92 U/L 8-55 H Vfmyyzpkk4692-49-22 06:08:00 Test Item Value Reference Range Interpretation [...] = CREATT) Chemistry (test Greater than 90 Reference Range for code = EGFRMDRD) Estimated G FR: Greater than 90 mL/min/1.73 m2NOTE:The MDRD equation has no t been validated for use with theeld erly (over 70 years of age), women, patients with serious comorbi d condition or pe rsons with extremes o fbody size, muscle ma ss, or nutritional status. Chemistry (test 91 mg/dL 70-105 N code = GLU-T) Chemistry (test 8.5 mg/dL 7.8-10.44 N code = CA) Stagozkny9161-09-56 06:06:00 Test Item Value Reference Range Interpretation [...] code = ALT) 129 U/L 8-55 H Krrviokpuq9864-38-77 05:57:00 Test Item Value Reference Range Interpretation [...] code = BASO#) 0.0 thou/uL 0.0-0.2 N Nbahxlqnrki8954-42-54 05:55:00 Test Item Value Reference Range Interpretation Comments Coagulation (test 13.5 SEC 12.0-14.7 N code = PT-T) Coagulation (test 1.0 ATTE NTION: READ code = INR) CAREFULLY-- The recommended the rapeutic ranges for oral anticoagulanttr eatments are: ------ Low Inte nsity: 1.5 - 2.0 Moderate In tensity: 2.0 - 3.0 High Intens ity (1): 2.5 - 3.5 High Intens ity (2): 3.0 - 4.0 CRITICAL: > 4.0 Anticoagulant? NBKALmpulncdx2257-91-63 05:36:00 Test Item Value Reference Range Interpretation [...] = CREATT) Chemistry (test Greater than 90 Reference Range for code = EGFRMDRD) Estimated G FR: Greater than 90 mL/min/1.73 m2NOTE:The MDRD equation has no t been validated for use with theeld erly (over 70 years of age), women, patients with serious comorbi d condition or pe rsons with extremes o fbody size, muscle ma ss, or nutritional status. Chemistry (test 89 mg/dL 70-105 N code = GLU-T) Chemistry (test 8.9 mg/dL 7.8-10.44 N code = CA) Cawkjlfhy6089-02-26 05:33:00 Test Item Value Reference Range Interpretation [...] code = ALT) 160 U/L 8-55 H Vlqwtyxszq5170-73-97 05:28:00 Test Item Value Reference Range Interpretation [...] 0.1 thou/uL 0.0-0.2 N Chemistry - Elizabeth Iwupufp7101-06-01 13:02:00 Test Item Value Reference Range Interpretation Comments Chemistry - Elizabeth Negative Negative Testing (test code = ANASC) Chemistry - Elizabeth Negative Negative SYMPHONY SC REEN Testing (test code INCLUDES: PAN, = ANASYM) SS-A/Ro, SS-B/L a, U1RNP,RNP70, SCL-70, CENP, J o-1 Chemistry - Elizabeth 0.10 Ratio <0.7 Negative Testing (test code = ANASYMQUANT) Chemistry - Elizabeth 3.1 IU/mL <10 Negative Testing (test code = DSDNAIGG) Chemistry - Elizabeth dsDNA Less than Testing (test code 10.0 IU/m L = = DSDNAINTERP) Negative 10.0 - 15.0 IU/mL = Equivocal Great er than 15.0 IU/mL = POSITIVE Chemistry - Elizabeth NEW METHOD Values o [...] hod: Enzyme Linked Fluorescent Immunoassay (Elizabeth)Reference s: sezmidia AB Elizabeth Package Inserts - Directions for june,August 02, ZummZumm ic. Hslfbxpsw6345-41-67 05:00:00 Test Item Value Reference Range Interpretation [...] code = ALT) 144 U/L 8-55 H Mhhhhyhrr0196-18-47 04:50:00 Test Item Value Reference Range Interpretation [...] = CREATT) Chemistry (test Greater than 90 Reference Range for code = EGFRMDRD) Estimated G FR: Greater than 90 mL/min/1.73 m2NOTE:The MDRD equation has no t been validated for use with theeld erly (over 70 years of age), women, patients with serious comorbi d condition or pe rsons with extremes o fbody size, muscle ma ss, or nutritional status. Chemistry (test 90 mg/dL 70-105 N code = GLU-T) Chemistry (test 8.4 mg/dL 7.8-10.44 N code = CA) Qtuhdclbgg3168-47-93 04:39:00 Test Item Value Reference Range Interpretation [...] code = BASO#) 0.0 thou/uL 0.0-0.2 N Pchikntxn5022-90-01 17:07:00 Test Item Value Reference Range Interpretation Comments Chemistry (test code = IGG) 1032.00 mg/dL 552-1631 N Adznhfycs6944-25-71 17:07:00 Test Item Value Reference Range Interpretation Comments Chemistry (test code = IGM) 215.00 mg/dL 33-293 N Lofxdicvgc8749-94-61 00:50:00 Test Item Value Reference Range Interpretation [...] UABLD) Urine Source: Urine Clean CatchChemistry - Szcmbght9080-48-97 00:25:00 Test Item Value Reference Range Interpretation Comments Chemistry - Specials (test Non-Reactive NonReactive code = THEPAIGM) Chemistry - Specials (test Non-Reactive S/CO NonReactive code = THBSAG) Chemistry - Specials (test Non-Reactive NonReactive code = INTHBCM) Chemistry - Specials (test Non-Reactive NonReactive code = INTHEPC) Upagzwuqr5255-45-72 22:12:00 Test Item Value Reference Range Interpretation [...] ce Range for = EGFRMDRD) Estimated GFR: Greater than 90 mL/min/ 1.73 m2NOTE:The MDRD equation has no t been validated for u se with theelderly (ove r 70 years of age), women, patients with serious comorbi d condition or pe rsons with extremes o fbody size, muscle ma ss, or nutritional sta tus. Chemistry (test code 95 mg/dL 70-105 N [...] code 196 U/L 8-55 H = ALT) Uzgmcbzqu4809-70-08 22:12:00 Test Item Value Reference Range Interpretation Comments Chemistry (test code = LIP) 22 U/L 8-78 N Irfvobvyyi0075-76-57 21:50:00 Test Item Value Reference Range Interpretation [...] code = BASO#) 0.1 thou/uL 0.0-0.2 N Gwolzgjpp0728-22-69 22:49:00 Test Item Value Reference Range Interpretation [...] = CREATT) Chemistry (test Greater than 90 Reference Range for code = EGFRMDRD) Estimated G FR: Greater than 90 mL/min/1.73 m2NOTE:The MDRD equation [...] 78 U/L 8-55 H code = ALT) Tbwgqamxl4389-98-56 22:49:00 Test Item Value Reference Range Interpretation Comments Chemistry (test code = LIP) 12 U/L 8-78 N Htyvhwmgee4948-93-15 22:24:00 Test Item Value Reference Range Interpretation [...] code = BASO#) 0.0 thou/uL 0.0-0.2 N Xryyhahpuq8505-07-05 22:00:00 Test Item Value Reference Range Interpretation [...] UABLD) Negative Negative Urine Source: Urine Clean PimszXiwqipdt0734-28-58 09:28:00 Test Item Value Reference Range Interpretation Comments Accuchek (test code = ACU) 99 mg/dL 70-110 N Bwdxyvkjnx7202-56-39 09:14:00 Test Item Value Reference Range Interpretation [...] UABLD) Negative Negative Urine Source: Urine Clean MuujaEuwpleoiio2857-02-60 21:28:00 Test Item Value Reference Range Interpretation [...] UABLD) Negative Negative Urine Source: Urine Clean MmtjwWnvgupjty0491-31-14 21:09:00 Test Item Value Reference Range Interpretation [...] = CREATT) Chemistry (test Greater than 90 Reference Range for code = EGFRMDRD) Estimated G FR: Greater than 90 mL/min/1.73 m2NOTE:The MDRD equation [...] 95 U/L 8-55 H code = ALT) Lzquluzht4630-58-35 21:09:00 Test Item Value Reference Range Interpretation Comments Chemistry (test code = LIP) 39 U/L 8-78 N Vryodvucsd8922-82-25 20:49:00 Test Item Value Reference Range Interpretation [...] code = BASO#) 0.0 thou/uL 0.0-0.2 N Hihvmffhqz7895-85-58 21:34:00 Test Item Value Reference Range Interpretation Comments Toxicology Not Detected NotDetected (test code = ROSMERY) Toxicology Not Detected NotDetected (test code = PCP) Toxicology Not Detected NotDetected (test code = COCN) Toxicology Not Detected NotDetected (test code = METHAMPU) Toxicology Detected NotDetected A (test code = OPIA) Toxicology Not Detected NotDetected (test code = AMPHU) Toxicology Detected NotDetected A (test code = TEVIN) Toxicology Detected NotDetected A (test code = TRICY) Toxicology Not Detected NotDetected (test code = MTD) Toxicology Not Detected NotDetected (test code = SLIM) Toxicology Detected NotDetected A (test code = OXYCOD) Toxicology Not Detected NotDetected (test code = PPX) Toxicology The [place] Pro file-V Panel (test code = for Qualitative Drugs MTCUTOFF) ofAbuse assays are for presumptive scr eening testing only. e drug class and detec tion limits are as follows: Drug Class Detection Limit Amphetamine 500 ng/mL*Leeanne turates 200 ng/mLBenzodiaze pines 150 ng/mL*Cocaine 1 50 ng/mL*Methamphe tamine 500 ng/mL*Methadone 200 ng/mL*Opiates 1 00 ng/mL*Oxycodone 100 ng/mLPCP 25 ng/mLPropoxyphe ne 300 ng/mLTricyclic Antidepressants 300 ng/mLCannabinoi ds (THC) 50 ng/mLTests whic h yield a presumptive pos itive result must bet ested using a more specific alternate chemical method inorder to obtain a confir med analytical resu lt. Additionalconfi rmation and identification may be ordered on a ro utinebasis, if desired. Pre sumptive positive urines are held fortwo weeks. Urine Source: Urine Clean NbixmGwdrjybove7167-71-37 19:17:00 Test Item Value Reference Range Interpretation [...] = UABLD) Negative Negative Urine Source: Urine EvcgqdSuefljbkx6275-40-47 18:48:00 Test Item Value Reference Range Interpretation [...] ce Range for = EGFRMDRD) Estimated GFR: Greater than 90 mL/min/ 1.73 m2NOTE:The MDRD equation has no t been validated for u se with theelderly (ove r 70 years of age), women, patients with serious comorbi d condition or pe rsons with extremes o fbody size, muscle ma ss, or nutritional sta tus. Chemistry (test code 82 mg/dL 70-105 N [...] code 84 U/L 8-55 H = ALT) Fzvbldvta0121-86-79 18:48:00 Test Item Value Reference Range Interpretation Comments Chemistry (test code = JORGE) 53.0 U/L 25-125 N Tymissfiu5354-76-99 18:48:00 Test Item Value Reference Range Interpretation Comments Chemistry (test code = LIP) 10 U/L 8-78 N Kblsbktszh3793-80-67 18:19:00 Test Item Value Reference Range Interpretation [...] = BASO#) 0.1 thou/uL 0.0-0.2 N Culture, Ahufb0997-55-53 10:22:00 Test Item Value Reference Range Interpretation Comments Culture, Urine (test code = URC) NF N Culture, Urine (test code = URC1) 10 MSF N Giquwcsqy5160-91-43 17:38:00 Test Item Value Reference Range Interpretation Comments Chemistry (test code = PHOS) 2.9 mg/dL 2.3-4.7 N Uzcrjnogv3932-15-26 17:04:00 Test Item Value Reference Range Interpretation [...] ce Range for = EGFRMDRD) Estimated GFR: Greater than 90 mL/min/ 1.73 m2NOTE:The MDRD equation has no t been validated for u se with thegifford medical centererly (ove r 70 years of age), women, patients with serious comorbi d condition or pe rsons with extremes o fbody size, muscle ma ss, or nutritional sta tus. Chemistry (test code 94 mg/dL 70-105 N [...] H = ALT) Chemistry - BNP, HgbA1c, WVKz8980-66-14 17:04:00 Test Item Value Reference Range Interpretation Comments Chemistry - BNP, 4.9 % 4.0-6.0 N Therapeutic goals for glycemic HgbA1c, PTHi (test control ( ADA)Adults:- Goal of code = XQAZ4FV) therapy: Les s than 7.0% HbA1c- Action suggeste d: Greater than 8.0% GsU2nOtvce tric patients:- Toddlers and pr eschoolers: Less than 8.5% (but Greater than 7.5%)- Katelynn ool age (6-12 years): Less th an 8%- Adolescents and young adults (13-19 years): Less than 7.5%Diagnosing diabetes (ADA)- HbA1c: Greater than or equal to 6.5% Values of 5.7 - 6.4% indicate HIGH r isk for developing DiabetesInterna tional Expert Committee Repor t on the Role of the E8UBxqza in the Diagnosis of Di abetes. Diabetes Care 2009July;32(7): 1327-1334ADA, Diagnosis class ification of diabetes [facility].Diabetes Care 2010; 33 S uppl 1:S62 Mfoctbkzy7814-76-90 16:59:00 Test Item Value Reference Range Interpretation Comments Chemistry (test code = CRP) 1.16 mg/dL = or < 0.5 H What test does the doctor want? C-REACTIVE PROTEIN (CRP)Gdhylugqjm0760-32-15 16:53:00 Test Item Value Reference Range Interpretation [...] HPF None Seen Urine Source: Urine Clean DevubAgufnuhhjj5786-43-38 16:46:00 Test Item Value Reference Range Interpretation [...] code = BASO#) 0.1 thou/uL 0.0-0.2 N Zhbaxqgvff2549-71-09 21:59:00 Test Item Value Reference Range Interpretation [...] Urine Clean CatchSepsis - Lactic Acid >2 Awag8565-94-20 23:59:00 Test Item Value Reference Range Interpretation Comments Sepsis - Lactic Additional Lactate testin g will be Acid >2 Rflx performed in 3 hrs (test code = according to e HRPLS8K) SepsisProtocol. Zpwwvfslf0937-81-04 21:12:00 Test Item Value Reference Range Interpretation Comments Chemistry (test code = JORGE) 59.0 U/L 25-125 N Wfccgyonz9890-37-48 20:59:00 Test Item Value Reference Range Interpretation [...] for code = EGFRMDRD) Estimated G FR: Greater than 90 mL/min/1.73 m2NOTE:The MDRD equation has no t been validated for u se with theelderly (over 70 years of age ), women, patientswith se rious comorbid condit ion or persons with ex tremes ofbody size, mu scle mass, or nutrit ional status. Chemistry (test 98 mg/dL 70-105 N [...] 87 U/L 8-55 H code = ALT) Tbapqpekq5930-82-86 20:59:00 Test Item Value Reference Range Interpretation Comments Chemistry (test code = LIP) 32 U/L 8-78 N Chemistry - Iyrgfmv0517-19-54 20:59:00 Test Item Value Reference Range Interpretation Comments Chemistry - Lactate (test code = 2.1 mmol/L 0.5-2.2 N LACTSEP-T) Vwckzvoahf8386-55-19 20:43:00 Test Item Value Reference Range Interpretation [...] = UABLD) Negative Negative Urine Source: Urine TqislsLbvenjegvm3462-40-46 20:37:00 Test Item Value Reference Range Interpretation [...]
[2021-12-12] MEDS ORDERED: LIDOCAINE VISCOUS 2% SOLN 15 ML UDC ONE (18:30)
[2021-12-12] MEDS ORDERED: MAGNES/ALUMIN/SIMET 30ML UCUP ONE (18:30)
[2021-12-12] MEDS ORDERED: NA CHLORIDE 0.9% 1,000 ML ONE (18:30)
[2021-12-12] MEDS ORDERED: ONDANSETRON 4 MG/2 ML VIAL ONE ×2 (18:30→21:09)
[2021-12-12] MEDS ORDERED: FAMOTIDINE 20 MG/2 ML VIAL IV ONE (18:31)
[2021-12-12 18:41] LABS: Absolute Lymphocytes (CBC) 0.9 K/uL (0.7-4.9); Hematocrit 31.1 % (36.0-45.0); Lymphocytes % 20.9 % (15.3-44.8); MCV 90.4 fL (80-100); MPV 7.4 fL (7.6-11.3); RBC Red Blood Cell Count 3.44 M/uL (3.86-4.86)
[2021-12-12] MEDS ORDERED: MORPHINE 4 MG/ML SYR ONE (18:55)
[2021-12-12 19:08] LABS: Albumin 3.4 g/dL (3.4-5.0); Bilirubin Total 1.6 mg/dL (0.2-1.0)
[2021-12-12 19:18] LABS: Potassium 4.3 mmol/L (3.5-5.1)
--- NOTE | 2021-12-12 20:34 | RAD REPORT ---
EXAM DESCRIPTION: CTAbdomen Pelvis W Contrast - 12/12/2021 8:16 pm CLINICAL HISTORY: Upper abdominal Pain COMPARISON: Abdomen Pelvis W Contrast dated 06/01/2021; Abdomen Pelvis W Contrast dated 03/17/2021 ; Abdomen Pelvis W Contrast dated 01/23/2021; Abdomen Pelvis W Contrast dated 01/19/2021 TECHNIQUE: CT of the abdomen and pelvis was performed. All CT scans are performed using dose optimization technique as appropriate and may include automated exposure control or mA/KV adjustment according to patient size. FINDINGS: Lower chest: No acute abnormality. Liver: No acute abnormality or suspicious lesions. Biliary: . Cholecystectomy. Stomach: Question wall thickening of the gastric antrum which is relatively featureless. Duodenum: No significant focal abnormality. Pancreas: No significant abnormality. Spleen: No significant abnormality. Adrenal: No suspicious lesions. Kidney/ureter: No hydronephrosis. No renal calculi. Too small to characterize and/or benign appearing renal lesions are noted. Retroperitoneum: No retroperitoneal adenopathy. Vascular: No aneurysm. Bowel: Appendectomy. No bowel obstruction.. Moderate stool in the ascending colon. Peritoneum: No ascites or free air. Bladder: Circumferential bladder wall thickening. Reproductive: No adnexal masses. Bones: No acute fracture. Other: n/a IMPRESSION: No acute intra-abdominal or pelvic finding. Question wall thickening of the gastric antr um which could reflect gastritis. Endoscopy could better evaluate. Chronic pneumobilia.
--- NOTE | 2021-12-12 21:01 | ER ---
Nurse's Notes [facility] Name: Yessenia Aleman Age: 61 yrs Sex: Female : 1960 Arrival Date: 12/12/2021 Time: 17:48 Bed 17 Private MD: Diagnosis: Disease of biliary tract, unspecified-primary biliary cirrhosis;Epigastric abdominal tenderness;Other cirrhosis of liver Presentation: 12/12 18:08 Chief complaint: Patient states: upper abd pain radiating to her back, hx of chronic iw pancreatitis , + n/v. Coronavirus screen: At this time, the client does not indicate any symptoms associated with coronavirus-19. Ebola Screen: Patient negative for fever greater than or equal to 101.5 degrees Fahrenheit, and additional compatible Ebola Virus Disease symptoms Patient denies exposure to infectious person. Patient denies travel to an Ebola-affected area in the 21 days before illness onset. No symptoms or risks identified at this time. Initial Sepsis Screen: Does the patient meet any 2 criteria? No. Patient's initial sepsis screen is negative. Does the patient have a suspected source of infection? No. Patient's initial sepsis screen is negative. Risk Assessment: Do you want to hurt yourself or someone else? Patient reports no desire to harm self or others. Onset of symptoms was December 10, 2021. 18:08 Method Of Arrival: Ambulatory iw 18:08 Acuity: HOLLI 3 iw Triage Assessment: 18:16 General: Appears in no apparent distress. uncomfortable, well groomed, well developed, jh5 Behavior is calm, cooperative, appropriate for age. Historical: - Allergies: 18:09 No Known Allergies; iw - PMHx: 18:09 Anxiety; Arthritis; biliary chirrosis; biliary disease; Cirrhosis; Hypertension; iw Pancreatitis; - PSHx: 18:16 Appendectomy; Biliary stent removal; Biliary stents; Cholecystectomy; jh5 - Immunization history:: Adult Immunizations up to date. - Social history:: Smoking status: Patient denies any tobacco usage or history of. Screenin:14 Abuse screen: Denies threats or abuse. Denies injuries from another. Nutritional jh5 screening: No deficits noted. Tuberculosis screening: No symptoms or risk factors identified. Fall Risk None identified. Assessment: 19:18 General: Appears in no apparent distress. comfortable, Behavior is calm, cooperative. kl Pain: Denies pain. Neuro: No deficits noted. Level of Consciousness is awake, alert, obeys commands. Cardiovascular: No deficits noted. Respiratory: No deficits noted. GI: Bowel sounds present X 4 quads. Abd is soft and non tender. : No deficits noted. No signs and/or symptoms were reported regarding the genitourinary system. EENT: No deficits noted. No signs and/or symptoms were reported regarding the EENT system. 19:20 Reassessment: Pt continued to request morphine and became upset when the MD did not jh previously order IV pain medicine. When the underwriter solicitation director informed the patient that the underwriter solicitation director discussed pain with provider and now she will be getting the morphine pt stated; "Thank you nurse, thank you so much for that". When the underwriter solicitation director administered the morphine the patient stated "That's it, that's it". Vital Signs: 18:09 BP 154 / 110; Pulse 101; Resp 18; Temp 98.2(O); Pulse Ox 100% on R/A; Weight 72.57 kg; iw Height 5 ft. 0 in. (152.40 cm); Pain 9/10; 19:19 BP 128 / 81; Pulse 78; Pulse Ox 96% on R/A; kl 21:10 BP 140 / 77; Pulse 77; Resp 16; Pulse Ox 99% on R/A; kl 18:09 Body Mass Index 31.25 (72.57 kg, 152.40 cm) iw ED Course: 17:48 Patient arrived in ED. mr 18:00 Keith Courtney DO is Attending Physician. ms3 18:09 Triage completed. iw 18:09 Arm band placed on. iw 18:13 Yulia Weber, RN is Primary Nurse. jh5 18:14 Patient has correct armband on for positive identification. jh5 18:14 No provider procedures requiring assistance completed. jh5 19:11 Attending Physician role handed off by Keith Courtney DO irene 19:11 Kyler Flores MD is Attending Physician. irene 20:17 CT Abd/Pelvis - IV Contrast Only In Process Unspecified. EDMS 21:01 Elijah Neumann MD is Referral Physician. irene 21:10 IV discontinued, intact, bleeding controlled, No redness/swelling at site. Pressure kl dressing applied. Administered Medications: 18:53 Drug: GI Cocktail without - (Maalox Suspension 30 ml, Lidocaine Liquid 2 % 15 jh5 ml) Route: PO; 18:53 Drug: morphine 4 mg Route: IVP; Infused Over: 4 mins; Site: left forearm; jh5 18:54 Drug: NS 0.9% 1000 ml Route: IV; Rate: 1 bolus; Site: left forearm; jh5 18:54 Drug: Pepcid (famotidine) 20 mg Route: IVP; Site: left forearm; jh5 18:54 Drug: Zofran (Ondansetron) 4 mg Route: IVP; Site: left forearm; jh5 21:03 Drug: morphine 2 mg Route: IVP; Infused Over: 4 mins; Site: left forearm; 21:10 Follow up: Response: Marked relief of symptoms kl 21:03 Drug: Zofran (Ondansetron) 4 mg Route: IVP; Site: left forearm; kl 21:09 Follow up: Response: Marked relief of symptoms Medication: 18:19 VIS not applicable for this client. 5 Outcome: 21:01 Discharge ordered by . irene 21:10 Discharged to home ambulatory. 21:10 Condition: improved 21:10 Discharge instructions given to patient, Instructed on discharge instructions, follow up and referral plans. medication usage, Demonstrated understanding of instructions, follow-up care, medications. 21:11 Patient left the ED. Signatures: Dispatcher [employer] EDMS Teodora Jordan RN RN kl Anderson, Corey, MD MD cha Rivera, Mary mr Shabana Montenegro RN RN iw Sims, Marcus, DO DO ms3 Yulia Weber RN RN jh5 Corrections: (The following items were deleted from the chart) 18:09 18:09 Allergies: Codeine; iw iw 18:09 18:09 PMHx: Chronic Pancreatitis; iw iw 18:10 18:09 Pulse 101bpm; Resp 18bpm; Pulse Ox 100% RA; 72.57 kg; Height 5 ft. 0 in.; BMI: iw 31.2; Pain 9/10; iw 18:12 18:09 Pulse 101bpm; Resp 18bpm; Pulse Ox 100% RA; 72.57 kg; Height 5 ft. 0 in.; BMI: iw 31.2; Pain 9/10; iw
--- NOTE | 2021-12-12 21:02 | EDPHYS ---
Physician Documentation [facility] Name: Yessenia Aleman Age: 61 yrs Sex: Female : 1960 Arrival Date: 12/12/2021 Time: 17:48 Bed 17 Private MD: ED Physician Kyler Flores HPI: 12/12 18:47 This 61 yrs old Female presents to ER via Ambulatory with complaints of ms3 Abdominal Pain. 18:47 61-year-old female with past medical history of chronic pancreatitis, anxiety, ms3 arthritis, biliary cirrhosis, cirrhosis presents for epigastric abdominal pain that is been ongoing for 3 days. Patient states the pain is a 9/10 and described as "it hurts." Patient endorses nausea and vomiting. Patient denies diarrhea. Patient states she has not taken any medications for her pain.. Historical: - Allergies: 18:09 No Known Allergies; iw - PMHx: 18:09 Anxiety; Arthritis; biliary chirrosis; biliary disease; Cirrhosis; Hypertension; iw Pancreatitis; - PSHx: 18:16 Appendectomy; Biliary stent removal; Biliary stents; Cholecystectomy; jh5 - Immunization history:: Adult Immunizations up to date. - Social history:: Smoking status: Patient denies any tobacco usage or history of. ROS: 18:47 Constitutional: Negative for fever, and chills. Neck: Negative for injury, pain, and ms3 swelling, Cardiovascular: Negative for chest pain, and palpitations. Respiratory: Negative for shortness of breath, cough, wheezing, and pleuritic chest pain. 18:47 Abdomen/GI: Positive for abdominal pain, nausea and vomiting, Negative for diarrhea. 18:47 All other systems are negative. Exam: 18:47 Constitutional: This is a well developed, well nourished patient who is awake, alert, ms3 and in no acute distress. Eyes: Pupils equal round and reactive to light, extra-ocular motions intact. Lids and lashes normal. Conjunctiva and sclera are non-icteric and not injected. Periorbital areas with no swelling, redness, or edema. Neck: Trachea midline, no cervical lymphadenopathy. Supple, full range of motion without nuchal rigidity, or vertebral point tenderness. No Meningismus. Chest/axilla: Normal chest wall appearance and motion. Nontender with no deformity. 18:47 Respiratory: Lungs have equal breath sounds bilaterally, clear to auscultation and percussion. No rales, rhonchi or wheezes noted. No increased work of breathing, no retractions or nasal flaring. Skin: Warm, dry with normal turgor. Normal color with no rashes, no lesions, and no evidence of cellulitis. 18:47 Psych: Awake, alert, with orientation to person, place and time. Behavior, mood, and affect are within normal limits. 18:47 Cardiovascular: Rate: tachycardic, Rhythm: regular, Pulses: no pulse deficits are appreciated, Heart sounds: normal. 18:47 Abdomen/GI: Inspection: abdomen appears normal, Bowel sounds: normal, Palpation: moderate abdominal tenderness, in the epigastric area. Vital Signs: 18:09 BP 154 / 110; Pulse 101; Resp 18; Temp 98.2(O); Pulse Ox 100% on R/A; Weight 72.57 kg; iw Height 5 ft. 0 in. (152.40 cm); Pain 9/10; 19:19 BP 128 / 81; Pulse 78; Pulse Ox 96% on R/A; kl 21:10 BP 140 / 77; Pulse 77; Resp 16; Pulse Ox 99% on R/A; kl 18:09 Body Mass Index 31.25 (72.57 kg, 152.40 cm) iw MDM: 18:13 Patient medically screened. ms3 18:47 Differential diagnosis: gastritis, non-specific abd pain, pancreatitis. ms3 20:46 Data reviewed: vital signs, nurses notes, lab test result(s). [facility] 12/12 18:11 Order name: CBC with Diff; Complete Time: 20:38 ms3 12/12 18:11 Order name: CMP; Complete Time: 20:38 ms3 12/12 18:11 Order name: Lipase; Complete Time: 20:38 ms3 12/12 20:38 Order name: AMMONIA [facility] 12/12 20:38 Order name: PT-INR [facility] 12/12 18:11 Order name: CT Abd/Pelvis - IV Contrast Only; Complete Time: 20:38 ms3 12/12 18:11 Order name: IV Saline Lock; Complete Time: 18:53 ms3 12/12 18:11 Order name: Labs collected and sent; Complete Time: 18:53 ms3 Administered Medications: 18:53 Drug: GI Cocktail without - (Maalox Suspension 30 ml, Lidocaine Liquid 2 % 15 jh5 ml) Route: PO; 18:53 Drug: morphine 4 mg Route: IVP; Infused Over: 4 mins; Site: left forearm; jh5 18:54 Drug: NS 0.9% 1000 ml Route: IV; Rate: 1 bolus; Site: left forearm; jh5 18:54 Drug: Pepcid (famotidine) 20 mg Route: IVP; Site: left forearm; 5 18:54 Drug: Zofran (Ondansetron) 4 mg Route: IVP; Site: left forearm; jh5 21:03 Drug: morphine 2 mg Route: IVP; Infused Over: 4 mins; Site: left forearm; kl 21:10 Follow up: Response: Marked relief of symptoms kl 21:03 Drug: Zofran (Ondansetron) 4 mg Route: IVP; Site: left forearm; kl 21:09 Follow up: Response: Marked relief of symptoms kl Disposition Summary: 12/12/21 21:01 Discharge Ordered Location: Home irene Problem: new irene Symptoms: have improved irene Condition: Stable irene Diagnosis - Disease of biliary tract, unspecified - primary biliary cirrhosis irene - Epigastric abdominal tenderness irene - Other cirrhosis of liver irene Followup: irene - With: Private Physician - When: 2 - 3 days - Reason: Recheck today's complaints, Continuance of care, Re-evaluation by your physician Followup: irene - With: - When: 2 - 3 days - Reason: Recheck today's complaints, Re-evaluation by your physician Discharge Instructions: - Discharge Summary Sheet irene - Abdominal Pain, Adult irene - Cirrhosis irene Forms: - Medication Reconciliation Form irene - Thank You Letter irene - Antibiotic Education irene - Prescription Opioid Use irene Prescriptions: - Pepcid 20 mg Oral Tablet - take 1 tablet by ORAL route every 12 hours for 10 days; 20 tablet; Refills: 0, irene Product Selection Permitted - Zofran 4 mg Oral Tablet - take 1 tablet by ORAL route every 12 hours As needed; 20 tablet; Refills: 0, irene Product Selection Permitted - dicyclomine 20 mg Oral Tablet - take 1 tablet by ORAL route 4 times per day; 28 tablet; Refills: 0, Product [facility] Selection Permitted Signatures: Dispatcher [employer] Teodora Morales RN RN kl Anderson, Corey, MD MD cha Williams, Irene, RN RN iw Keith Courtney DO DO ms3 Yulia Weber RN RN jh5 Corrections: (The following items were deleted from the chart) Allergies: Codeine; [facility] PMHx: Chronic Pancreatitis; [facility]
[2021-12-12 21:09] LABS: Protime INR 1.03
[2021-12-12] MEDS ORDERED: MORPHINE 2 MG/ML SYR ONE (21:09)
[2021-12-12 21:20] VITALS: TEMP 98.2
[2021-12-12 21:27] VITALS: BP 140/77; O2SAT 99
== END 2021-12-12 21:11 | disposition home or self-care (01) ==
LOC: ER 17:44
DX: K74.3 Primary biliary cirrhosis (principal); K74.69 Other cirrhosis of liver; I10 Essential (primary) hypertension
CPT/HCPCS: 85025; 36415; 82140; 85610; 83690; 80053; 74177; Q9967; J2270; J7030; J2405 ×2

== ENCOUNTER 2022-01-10 09:55 | Emergency (ER) | payer OTHER ==
[2022-01-10] MEDS ORDERED: HYDROCODONE/APAP 10/325 TAB ONE (10:28)
--- OUTSIDE RECORDS SUMMARY | 2022-01-10 10:45 | XMS REPORT | Continuity of Care Document ---
:1960 Author Organization [facility] t Address [address] [place] [address] [address]. [address] [place] [address] Care Team Providers Name Role Phone INDIRA MONTERROSO Primary Care Physician Unavailable Jeannie Slade Attending Clinician Unavailable GULSHAN PIPER Attending Clinician Unavailable ARIK AVILEZ Attending Clinician Unavailable MOISE GAMEZ Attending Clinician Unavailable ANA MARÍA PENNY Attending Clinician Unavailable BRAULIO NGUYỄN Attending Clinician Unavailable VIRA WASHBURN Attending Clinician Unavailable Doctor Unassigned, Briar Attending Clinician Unavailable MOGHE, AKSHATA Attending Clinician Unavailable CALVIN, AKSHATA Attending Clinician Unavailable MARIANA RAMIREZ Attending Clinician Unavailable Mariana Ramirez MD Attending Clinician ZULEMA RODRIGUEZ JR Attending Clinician Unavailable Jennifer Cervantes, Zulema WHALEN Attending Clinician Abe Arana CRNA Attending Clinician Margarito Jerome MD Attending Clinician Only, Adc Test Attending Clinician Unavailable Pob, Adc Lab Main Attending Clinician Unavailable Trinidad KAN, Cyn Steiner Attending Clinician Unavailable RAF GREENE Attending Clinician Unavailable Collin ORTIZ, Jaki Otoole Attending Clinician Raf Greene DO Attending Clinician Won Malone MD Attending Clinician MARU ABEZ Attending Clinician Unavailable Maru Baez DO Attending Clinician Lanny Hussein RN Attending Clinician Unavailable FRED GRADY Attending Clinician Unavailable Sonya HALL, Meka Richey Attending Clinician Liliya Hinojosa MD Attending Clinician Fred Grady MD Attending Clinician Gulshan Piper MD Attending Clinician EBRACONSUELO LOPEZ Attending Clinician Unavailable Ebrahifalguni FASHION MARKETERConsuelo Attending Clinician Kelsy Mendoza RN Attending Clinician Unavailable Phillip [facility] Attending Clinician Unavailable Korina Zhao Attending Clinician KORINA ALBERTO Attending Clinician Unavailable TOSHA PALACIO Attending Clinician Unavailable Gustavo, Phillip Hwang Uc Attending Clinician Unavailable Tosha Palacio MD Attending Clinician MEKA HAMMONDS Attending Clinician Unavailable ROSALINDA FISHER Attending Clinician Unavailable Natalia WEBSTER, Rosalinda Upton Attending Clinician Karo KAN, Karlene Hawley Attending Clinician Unavailable Vira Washburn MD Attending Clinician Zulema FASHION MARKETER, Alirio F Attending Clinician ALIRIO POOLE F Attending Clinician Unavailable Kadi Duggan MD Attending Clinician Uriel Santo MD Attending Clinician URIEL SANTO Attending Clinician Unavailable Maisha Bledsoe Attending Clinician MAISHA REYES Attending Clinician Unavailable SULAIMAN MARSH Attending Clinician Unavailable Vera WEBSTER, Moise Goodman Attending Clinician Jaki POLANCO Attending Clinician Unavailable Rayray Ayala MD, Leonard Attending Clinician Asaf FASHION MARKETER, Kirstin Attending Clinician Lab, Adc Fam Pob I Attending Clinician Unavailable Kayy CUELLOP, Loyda Attending Clinician Jeannie Slade Attending Clinician Erasmo Grayson MD Attending Clinician Katheryn Retana MD Attending Clinician Kobi Mcdermott MD Attending Clinician ERASMO GRAYSON Attending Clinician Unavailable Gary Skaggs DO Attending Clinician GARY SKAGGS Attending Clinician Unavailable Steven Vasquez MD L Attending Clinician Ector Barnett S Attending Clinician Pricilla Smith RN Attending Clinician Sundar Brooke MD Attending Clinician Maxim WEBSTER, Carlito Attending Clinician Gisselle Mai HOSTEL MANAGER-C Attending Clinician Unavailable Boogie Cox Attending Clinician Unavailable PROVIDER, ED TEMP Attending Clinician Unavailable HOMAR LOVELACE Attending Clinician Unavailable To, Bradford Attending Clinician Unavailable GREGORY PONCE Attending Clinician Unavailable DIANA CASTILLO Attending Clinician Unavailable GULSHAN PIPER Admitting Clinician Unavailable ARIK AVILEZ Admitting Clinician Unavailable MOISE GAMEZ Admitting [...] Admitting Clinician Jaki POLANCO Admitting Clinician Unavailable Diego Grigsby MD, Kobi Admitting Clinician ERASMO GRAYSON Admitting Clinician Unavailable GARY SKAGGS Admitting Clinician Unavailable Maxim WEBSTER, [facility] Admitting Clinician Boogie Cox Admitting Clinician Unavailable Payers Payer Name Policy Type Policy Number Effective Date Expiration Date Maxine hammonds [employer] [id number] 2021spring 00:00:00 MEDICARE PART A [id number] 2015 \\T\\ B 00:00:00 STEPHANIENA II [id number] 2018 00:00:00 MEDICARE A B [id number] 2015 00:00:00 CIGNA [id number] 2018 HMO/POS/OPEN 00:00:00 ACCESS BCBS OS [id number] 2010 2020 POS/PPO/EPO 00:00:00 00:00:00 Problems Condition Condition Condition Status Onset Resolution Last Treating Co mments Source Name Details Category Date Date Treatment Clinician Date RUQ pain RUQ pain Disease Active Unive rs 5-20 ity of 00:00: [place] 00 Medical Branch Acute on Acute on Disease Active Unive rs chronic chronic 4-10 [place]it [place] [facility] 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 [place] cirrhosis [place] [facility] Branch Pancreatit Pancreatit Disease Active [facility] is, acute is, acute 5-25 [facility] s 00:00: [address] Primary Primary Disease Active [facility] cirrhosis cirrhosis 00:00: [facility] 00 Center S/P ERCP S/P ERCP Disease [facility]: [address] Cerebrovas Cerebrovas Disease Active 2019- U nivers cular cular 0-22 ity of accident accident 00:00: [place] (CVA) due (CVA) due 00 [facility] 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 Arthritis Arthritis Disease Active 2019-04 Uni vers 0-21 ity of 00:00: [place] [facility] Toxic Toxic Disease Active 2019-04 Univers metabolic metabolic 0-20 ity of encephalop encephalop 00:00: Dom mao athy athy Medical Branch Altered Altered Disease Active 2019-04 Univers mental mental 0-18 ity of status status 00:00: [place] [facility] Abdominal Abdominal Disease Active 2019- Uni vers pain pain 8-03 ity of 00:00: [place] 00 Medical Branch Peripheral Peripheral Disease Active 2019-0 U nivers nerve nerve 7-10 ity of disease disease 00:00: [place] [facility] Choledocho Choledocho Disease Active 2018-0 U nivers lithiasis lithiasis 7-20 ity of 00:00: [place] 00 Medical Branch Constipati Constipati Disease Active 2018-0 U nivers on on 7-18 ity of 00:00: [place] [facility] Acute Acute Disease Active 2018- Univers appendicit appendicit 6-10 it y of is is 00:00: [place] 00 Medical Branch Transamini Transamini Disease Active U nivers tis tis 8-17 ity of 00:00: [place] 00 Medical Branch Acute Acute Disease Active Univers cystitis cystitis 8-15 ity of without without 00:00: [place] hematuria hematuria 00 [facility] History of History of Disease Active U nivers biliary biliary 8-15 ity of duct [place] 00 [facility] Branch 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 8-15 it y of vomiting vomiting 00:00: [place] with with 00 Medical nausea nausea Branch Intractabl Intractabl Disease Active U nivers e e 8-15 ity of epigastric epigastric [place] abdominal abdominal 00 [facility] pain pain Branch Obesity Obesity Disease Active 2015-04 Univers (BMI (BMI 1-17 ity of 30-39.9) 30-39.9) 00:00: [place] 00 Medical Branch Abdominal Abdominal Disease Active [facility] pain, pain, 5-07 [facility] acute, acute, 00:00: Medical right right 00 Center upper upper quadrant quadrant Hypokalemi Hypokalemi Disease Active [facility] a 7-27 [facility] 00:00: Medical 00 Center Chronic Chronic Disease Active [facility] pain pain 7-27 [facility] syndrome syndrome 00:00: Medica l 00 Center Hypokalemi Hypokalemi Disease Active [facility] c periodic c periodic 7-27 Shari kes paralysis paralysis 00:00: [facility] 00 Center Biliary Biliary Disease [...] kes is is 00:00: Medical 00 Center Essential Essential Disease Active 2012-04 Uni vers hypertensi hypertensi 08 it y of on on 00:00: [place] 00 Medical Branch Elevated Elevated Disease Active 2012-04 [facility] liver liver 04-22 [facility] enzymes enzymes 00:00: Medical 00 [employer] Hypertensi Hypertensi Disease Active 2012-[address] on on 04-22 [facility] 00:00: Medical 00 [employer] Nausea & Nausea & Disease Active 2012-04 [facility] vomiting vomiting 04-22 [facility] 00:00: Medical 00 [employer] Fatty Fatty Disease Active 2012-[address] liver liver 04-22 [facility] 00:00: Medical 00 [employer] Alcohol Alcohol Disease Active 2012-[address] [facility] use use 04-22 [facility] 00:00: Medical 00 [employer] Immunity Immunity Disease Active 2012-04 [facility] status status 04-22 Lu testing testing 00:00: Medical 00 [employer] Abdominal Abdominal Disease Active 2012-[address] pain pain 04-22 [facility] 00:00: Medical 00 [employer] 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 04-22 [facility] 00:00: Medical 00 [employer] Allergies, Adverse Reactions, Alerts Allergy Allergy Status Severity Reaction(s) Onset Inactive Treating Comm ents Source Name Type Date Date Clinician ACETAMIN DRUG Active ITCHING Univers OPHEN-CO 6-17 ity of DEINE 00:00: [place] [facility] Acetamin Propensi Active Itching Unive rs ophen-Co ty to 6-17 ity of deine adverse 00:00: [place] reaction Medical s Branch Codeine Propensi Active Itching 2014-04 Univer s ty to 0-31 ity of adverse 00:00: [place] reaction Medical s Branch Codeine Drug Active Rash 2012-[address] [facility] Allergy 0-30 [facility] 00:00: Medical 00 [employer] CODEINE Allergy Active High Rash 2012-04 [facility] 0-30 00:00: 00 Codeine Propensi Active Rash 2012-04 Univers ty to 0-30 ity of adverse 00:00: [place] reaction Medical s Branch CODEINE DRUG Active High ITCHING 2012-04 Univers INGREDI 0-30 ity of 00:00: [place] 00 Medical Branch NO KNOWN Drug Active Univers ALLERGIE Class ity of S [facility] Family History Family Member Diagnosis Comments Start Date Stop Date Source Natural brother Cancer [facility] Social History Social Habit Start Date Stop Date Quantity Comments Source History [facility] University o f Alcohol Std [place] [facility] Drinks Branch History [facility] University o f Alcohol Binge [place] [facility] al Branch History [facility] University o f Alcohol Comment [place] Med ical Branch Exposure to 2021-10-23 2021-11-02 Not sure [facility]-CoV-2 00:00:00 04:45:00 [place] Medical (event) Branch Alcohol intake 2020-09-06 2020-09-[address] Sammy es 00:00:00 00:00:00 non-drinker of Medical Ce nter alcohol (finding) Tobacco use and 2018-11-15 2018-11-15 Smokeless tobacco Un iversity of exposure 00:00:00 00:00:00 non-user [place] [facility] History [facility] 2018-11-15 2018-11-15 1 University o f Alcohol Frequency 00:00:00 00:00:00 [facility] edical Branch History [facility] 2018-11-15 2018-11-15 3 University o f Financial 00:00:00 00:00:00 [place] [facility] History [facility] Food 2018-11-15 2018-11-15 1 Univers ity of Worry 00:00:00 00:00:00 [place] [facility] History [facility] Food 2018-11-15 2018-11-15 1 Univers ity of Scarcity 00:00:00 00:00:00 [place] [facility] History [facility] 2018-11-15 2018-11-15 2 University o f Transport Med 00:00:00 00:00:00 [place] Medic al Branch History [facility] 2018-11-15 2018-11-15 2 University o f Transport Non-Med 00:00:00 00:00:00 [facility] Assigned At [address] Shari kes 00:00:00 00:00:00 [facility] Smoking Status Start Date Stop Date Source Never smoked tobacco [facility] Medications Ordered Filled Start Stop Current Ordering Indication Dosage Frequency Signature Comments Components Source Medication Medication Date Date Medication? Clinician (SIG) Name Name ondansetron No 4mg 4 mg, Slow Univers [...] 11/02/21 at 0730, STAT iopamidol 2021- No [id number] 50mL 50 mL, U nivers (ISOVUE 11-02 Intravenou ity o f 370-500 mL) 12:16: 12:16 s, ONCE, 1 [place] injection 00 :00 dose, On Medica l 50 mL [facility] Branch 11/02/21 at 0730, Routine ondansetron 2021- No 4mg 4 mg, Slow Univers (ZOFRAN 11-02 IV Push, ity of (PF)) 11:00: 10:41 ONCE, 1 [place] injection 4 00 :00 dose, On Medi brandy mg [facility] Branch 11/02/21 at 0600, [place] FENTanyl PF No 75ug 75 mcg, Un you (SUBLIMAZE 11-02 Slow IV ity o f (PF)) 11:00: 10:42 Push, [place] injection 00 :00 ONCE, 1 Medical 75 mcg dose, On Branch [facility] 11/02/21 at 0600, STAT ondansetron 2021-0 Yes [id number] 4mg Take 1 Univers 4 mg 7-21 tablet by ity of disintegrat 00:00: mouth [place] ing tablet 00 every 8 Medica l (eight) Branch hours as needed for Nausea and Vomiting (N/V). ondansetron 2021-0 Yes [id number] 4mg Take 1 Univers 4 mg 7-21 tablet by ity of disintegrat 00:00: mouth [place] ing tablet 00 every 8 Medica l (eight) Branch hours as needed for Nausea and Vomiting (N/V). ARIPiprazol 2021-0 Yes 10mg Take 10 mg Univers e 10 mg 6-18 by mouth ity of tablet 22:55: daily. [address] busPIRone 2021-0 Yes 15mg Take 15 mg Un you 15 mg 6-18 by mouth ity of tablet 22:55: as needed. [address] omeprazole 2021-0 Yes 20mg Take 20 mg U nivers 20 mg 6-18 by mouth ity of tablet 22:55: daily. [address] ARIPiprazol 2021-0 Yes 10mg Take 10 mg Univers e 10 mg 6-18 by mouth ity of tablet 22:55: daily. [address] busPIRone 2021-0 Yes 15mg Take 15 mg Un you 15 mg 6-18 by mouth ity of tablet 22:55: as needed. [address] omeprazole 2021-0 Yes 20mg Take 20 mg U nivers 20 mg 6-18 by mouth ity of tablet 22:55: daily. [address] ARIPiprazol 2021-0 Yes 10mg Take 10 mg Univers e 10 mg 6-18 by mouth ity of tablet 22:55: daily. [address] busPIRone 2021-0 Yes 15mg Take 15 mg Un you 15 mg 6-18 by mouth ity of tablet 22:55: as needed. [address] omeprazole 2021-0 Yes 20mg Take 20 mg U nivers 20 mg 6-18 by mouth ity of tablet 22:55: daily. [address] ARIPiprazol 2021-0 Yes 10mg Take 10 mg Univers e 10 mg 6-18 by mouth ity of tablet 22:55: daily. [address] busPIRone 2021-0 Yes 15mg Take 15 mg Un you 15 mg 6-18 by mouth ity of tablet 22:55: as needed. [address] omeprazole 2021-0 Yes 20mg Take 20 mg U nivers 20 mg 6-18 by mouth ity of tablet 22:55: daily. [address] HYDROmorphO 0 Yes .2mg 0.2 mg, Uni vers ne 6-17 Slow IV ity of (DILAUDID) 14:57: Push, [...] (PF)) 1.3 % 0930, Branch (13.3 Until Sat mg/mL) 09/29/21 at injection 0939, Routine, Intra-op ketorolac 2021- No Slow IV Univ ers (TORADOL) 09-29 Push, ONCE ity of injection 14:27: 14:44 INTRA [place] 00 : PROCEDURE, Medical Starting Branch on Sat09/29/21 at [...] Sat [place] irrigation 00 :43 09/29/21 at Med ical solution 0821, Branch Until Sat09/29/21 at [...] [place] (SENSORCAIN 00 :43 09/29/21 at Ak dical E MPF) 0.5 0806, Branch % [...] 1000mL at 42 Unive rs ringers IV 09-29 mL/hr, ity of infusion 11:30: 11:49 1,000 mL, Archie as 1,000 mL 00 :00 IV Medical Infusion, Branch ONCE, 1 dose, On Sat09/29/21 at 0630, Routine, DSU Pre-op lactated 2021-0 2021- No 1000mL at 42 Unive rs ringers IV 6-17 06-17 mL/hr, ity of infusion 11:30: 11:49 1,000 mL, Archie as 1,000 mL 00 :00 IV Medical Infusion, Branch ONCE, 1 dose, On Sat09/29/21 at 0630, Routine, DSU Pre-op traZODone 2021-0 Yes 100mg Take 100 Uni vers 100 mg 6-17 mg by ity of tablet 11:00: mouth at [place] [address] bedtime. Medical Branch losartan 0 Yes 100mg Take 100 Univ ers 100 mg 6-17 mg by ity of tablet 11:00: mouth [place] 16 daily. Medical Branch gabapentin 0 Yes 300mg Take 300 Un you 300 mg 6-17 mg by ity of capsule 11:00: mouth 2 [place] [address] (two) Medical times Branch daily. QUEtiapine 0 Yes 400mg Take 400 Un you (SEROQUEL) 6-17 mg by ity of 400 mg 11:00: mouth [place] tablet 16 daily. Medical Patient Branch doesn't like to take it ARIPiprazol 0 Yes 10mg Take 10 mg Univers e 10 mg 6-17 by mouth ity of tablet 11:00: daily. [place] [address] Medical Branch busPIRone 2021-0 Yes 15mg Take 15 mg Un you 15 mg 6-17 by mouth ity of tablet 11:00: as needed. [place] [address] Medical Branch omeprazole 0 Yes 20mg Take 20 mg U nivers 20 mg 6-17 by mouth ity of tablet 11:00: daily. [place] [address] Medical Branch traZODone 2021-0 Yes 100mg Take 100 Uni vers 100 mg 6-17 mg by ity of tablet 11:00: mouth at [place] [address] bedtime. Medical Branch losartan 2021-0 Yes 100mg Take 100 Univ ers 100 mg 6-17 mg by ity of tablet 11:00: mouth [place] 16 daily. Medical Branch gabapentin 2021-0 Yes 300mg Take 300 Un you 300 mg 6-17 mg by ity of capsule 11:00: mouth 2 [place] [address] (two) Medical times Branch daily. QUEtiapine 2021-0 Yes 400mg Take 400 Un you (SEROQUEL) 6-17 mg by ity of 400 mg 11:00: mouth [place] tablet 16 daily. Medical Patient Branch doesn't like to take it ARIPiprazol 2021-0 Yes 10mg Take 10 mg Univers e 10 mg 6-17 by mouth ity of tablet 11:00: daily. [place] [address] Medical Branch busPIRone 2021-0 Yes 15mg Take 15 mg Un you 15 mg 6-17 by mouth ity of tablet 11:00: as needed. [place] [address] Medical Branch omeprazole 2021-0 Yes 20mg Take 20 mg U nivers 20 mg 6-17 by mouth ity of tablet 11:00: daily. [place] [address] Medical Branch traZODone 2021-0 Yes 100mg Take 100 Uni vers 100 mg 6-17 mg by ity of tablet 11:00: mouth at [place] [address] bedtime. Medical Branch losartan 2021-0 Yes 100mg Take 100 Univ ers 100 mg 6-17 mg by ity of tablet 11:00: mouth [place] 16 daily. Medical Branch gabapentin 2021-0 Yes 300mg Take 300 Un you 300 mg 6-17 mg by ity of capsule 11:00: mouth 2 [place] [address] (two) Medical times Branch daily. QUEtiapine 2021-0 Yes 400mg Take 400 Un you (SEROQUEL) 6-17 mg by ity of 400 mg 11:00: mouth [place] tablet 16 daily. Medical Patient Branch doesn't like to take it ARIPiprazol 2021-0 Yes 10mg Take 10 mg Univers e 10 mg 6-17 by mouth ity of tablet 11:00: daily. [place] [address] Medical Branch busPIRone 2021-0 Yes 15mg Take 15 mg Un you 15 mg 6-17 by mouth ity of tablet 11:00: as needed. [place] [address] Medical Branch omeprazole 2021-0 Yes 20mg Take 20 mg U nivers 20 mg 6-17 by mouth ity of tablet 11:00: daily. [place] [address] Medical Branch traZODone 2021-0 Yes 100mg Take 100 Uni vers 100 mg 6-17 mg by ity of tablet 11:00: mouth at [place] 16 bedtime. Medical Branch losartan 2022-0 Yes 100mg Take 100 Univ ers 100 mg 6-17 mg by ity of tablet 11:00: mouth [place] 16 daily. Medical Branch gabapentin 2022-0 Yes 300mg Take 300 Un you 300 mg 6-17 mg by ity of capsule 11:00: mouth 2 [place] 16 (two) Medical times Branch daily. QUEtiapine 2022-0 Yes 400mg Take 400 Un you (SEROQUEL) 6-17 mg by ity of 400 mg 11:00: mouth [place] tablet 16 daily. Medical Patient Branch doesn't like to take it traZODone 2-0 Yes 100mg Take 100 Uni vers 100 mg 6-17 mg by ity of tablet 11:00: mouth at [place] 16 bedtime. Medical Branch losartan 2-0 Yes 100mg Take 100 Univ ers 100 mg 6-17 mg by ity of tablet 11:00: mouth [place] 16 daily. Medical Branch gabapentin 2021-0 Yes 300mg Take 300 Un you 300 mg 6-17 mg by ity of capsule 11:00: mouth [address] [place] [address] (two) Medical times Branch daily. QUEtiapine 2-0 Yes 400mg Take 400 Un you (SEROQUEL) 6-17 mg by ity of 400 mg 11:00: mouth [place] tablet 16 daily. Medical Patient Branch doesn't like to take it traZODone 2-0 Yes 100mg Take 100 Uni vers 100 mg 6-17 mg by ity of tablet 11:00: mouth at [place] [address] bedtime. Medical Branch losartan 2-0 Yes 100mg Take 100 Univ ers 100 mg 6-17 mg by ity of tablet 11:00: mouth [place] 16 daily. Medical Branch gabapentin 2022-0 Yes 300mg Take 300 Un you 300 mg 6-17 mg by ity of capsule 11:00: mouth 2 [place] 16 (two) Medical times Branch daily. QUEtiapine 2022-0 Yes 400mg Take 400 Un you (SEROQUEL) 6-17 mg by ity of 400 mg 11:00: mouth [place] tablet 16 daily. Medical Patient Branch doesn't like to take it traZODone 2022-0 Yes 100mg Take 100 Uni vers 100 mg 6-17 mg by ity of tablet 11:00: mouth at [place] 16 bedtime. Medical Branch losartan 2022-0 Yes 100mg Take 100 Univ ers 100 mg 6-17 mg by ity of tablet 11:00: mouth [place] 16 daily. Medical Branch gabapentin 0 Yes 300mg Take 300 Un you 300 mg 6-17 mg by ity of capsule 11:00: mouth 2 [place] 16 (two) Medical times Branch daily. QUEtiapine 0 Yes 400mg Take 400 Un you (SEROQUEL) 6-17 mg by ity of 400 mg 11:00: mouth [place] tablet 16 daily. Medical Patient Branch doesn't like to take it aspirin 325 2021- No [id number] 325mg Take 1 Univers mg tablet 09-29 4106 tablet by ity of 00:00: 04:59 mouth 2 [place] 00 :00 (two) Medical times Branch daily with meals for 28 days. aspirin 325 2021- No [id number] 325mg Take 1 Univers mg tablet 09-29 4106 tablet by ity of 00:00: 04:59 mouth 2 [place] 00 :00 (two) Medical times Branch daily with meals for 28 days. aspirin 325 2021- No [id number] 325mg Take 1 Univers mg tablet 09-29 4106 tablet by ity of 00:00: 04:59 mouth 2 [place] 00 :00 (two) Medical times Branch daily with meals for 28 days. aspirin 325 2021- No [id number] 325mg Take 1 Univers mg tablet 09-29 4106 tablet by ity of 00:00: 04:59 mouth 2 [place] 00 :00 (two) Medical times Branch daily with meals for 28 days. ARIPiprazol Yes 10mg Take 10 mg Univers e 10 mg 6-09 by mouth ity of tablet 15:58: daily. [place] [address] Medical Branch busPIRone 0 Yes 15mg Take 15 mg Un you 15 mg 6-09 by mouth ity of tablet 15:58: as needed. [place] [address] Medical Branch omeprazole 0 Yes 20mg Take 20 mg U nivers 20 mg 6-09 by mouth ity of tablet 15:58: daily. [place] [address] Medical [place] ARIPiprazol 0 Yes 10mg Take 10 mg Univers e 10 mg 6-09 by mouth ity of tablet 15:58: daily. [place] [address] Medical Branch busPIRone 2022-0 Yes 15mg Take 15 mg Un you 15 mg 6-09 by mouth ity of tablet 15:58: as needed. [place] [address] Medical Branch omeprazole 2022-0 Yes 20mg Take 20 mg U nivers 20 mg 6-09 by mouth ity of tablet 15:58: daily. [place] [address] Medical Branch ARIPiprazol 2021-0 Yes 10mg Take 10 mg Univers e 10 mg 6-09 by mouth ity of tablet 15:58: daily. [place] [address] Medical Branch busPIRone 2-0 Yes 15mg Take 15 mg Un you 15 mg 6-09 by mouth ity of tablet 15:58: as needed. [place] [address] Medical Branch omeprazole 2-0 Yes 20mg Take 20 mg U nivers 20 mg 6-09 by mouth ity of tablet 15:58: daily. [place] [address] Medical Branch traZODone 2-0 Yes 100mg Take [...] at [place] 28 bedtime. Medical Branch losartan 2022-0 Yes 100mg Take 100 Univ ers 100 mg 5-27 mg by ity of tablet 17:57: mouth [place] 28 daily. Medical Branch gabapentin 2022-0 Yes 300mg Take 300 Un you 300 mg 5-27 mg by ity of capsule 17:57: mouth 2 [place] 28 (two) Medical times Branch daily. QUEtiapine 2022-0 Yes 400mg Take 400 Un you (SEROQUEL) 5-27 mg by ity of 400 mg 17:57: mouth [place] tablet 28 daily. Medical Patient Branch doesn't like to take it traZODone 2022-0 Yes 100mg Take 100 Uni vers 100 mg 5-27 mg by ity of tablet 17:57: mouth at [place] 28 bedtime. Medical Branch losartan 2022-0 Yes 100mg Take 100 Univ ers 100 mg 5-27 mg by ity of tablet 17:57: mouth [place] 28 daily. Medical Branch gabapentin 2022-0 Yes 300mg Take 300 Un you 300 mg 5-27 mg by ity of capsule 17:57: mouth 2 [place] 28 (two) Medical times Branch daily. QUEtiapine 2022-0 Yes 400mg Take 400 Un you (SEROQUEL) 5-27 mg by ity of 400 mg 17:57: mouth [place] tablet 28 daily. Medical Patient Branch doesn't like to take it proMETHazin 0 2021- No 25mg Take 25 mg Univers e 25 mg 5-27 05-27 by mouth ity of tablet 12:37: 00:00 every 12 [place] 44 :00 (twelve) Medical hours as Branch needed. sucralfate 0 Yes 1g 1 g, Oral, U nivers [...] Medical s, ONCE, 1 Branch dose, On [facility] 09/07/21 at 2030, Routine lipase-prot 0 Yes [id number] 1{capsu Take 1 [facility] ease-amylas 5-27 le} capsule by it y of e 00:00: mouth 3 [place] 12,000-38,0 00 (three) Medic al 00 -60,000 times Branch unit daily with capsule meals. psyllium Yes [id number] 1{packe Take 1 [facility] husk 3.4 5-27 t} Packet by ity of gram oral 00:00: mouth 2 [place] powder 00 (two) Medical packet times Branch daily. sucralfate Yes [id number] 1g Take 1 U nivers 1 gram 5-27 tablet by ity of tablet 00:00: mouth [place] 00 before Medical meals and Branch at bedtime. ursodioL 0 Yes [id number] 500mg Take 1 Un you 500 mg 5-27 tablet by ity of tablet 00:00: mouth 2 [place] 00 (two) Medical times Branch daily. dicyclomine 0 Yes [id number] 10mg Take 1 [facility] 10 mg 5-27 capsule by ity of capsule 00:00: mouth 3 [place] 00 (three) Medical times Branch daily. proMETHazin 0 Yes [id number] 12.5mg Take 0.5 [facility] e 25 mg [...] scal 7-10). Indication s: chronic pain pantoprazol 0 Yes [id number] 40mg Take 1 [facility] e 40 mg EC 5-27 tablet by ity of tablet 00:00: mouth [place] 00 daily. Medical Branch lipase-prot 2021-0 Yes [id number] 1{capsu Take 1 [facility] ease-amylas 5-27 le} capsule by it y of e 00:00: mouth 3 [place] 12,000-38,0 00 (three) Medic al 00 -60,000 times Branch unit daily with capsule meals. psyllium 0 Yes [id number] 1{packe Take 1 [facility] husk 3.4 5-27 t} Packet by ity of gram oral 00:00: mouth 2 [place] powder 00 (two) Medical packet times Branch daily. sucralfate 2021-0 Yes [id number] 1g Take 1 U nivers 1 gram 5-27 tablet by ity of tablet 00:00: mouth [place] 00 before Medical meals and Branch at bedtime. ursodioL 0 Yes [id number] 500mg Take 1 Un you 500 mg 5-27 tablet by ity of tablet 00:00: mouth 2 [place] 00 (two) Medical times Branch daily. dicyclomine 2021-0 Yes [id number] 10mg Take 1 [facility] 10 mg 5-27 capsule by ity of capsule 00:00: mouth 3 [place] 00 (three) Medical times Branch daily. proMETHazin 2021-0 Yes [id number] 12.5mg Take 0.5 [facility] e 25 mg [...] 7-10). Indication s: chronic pain pantoprazol Yes [id number] 40mg Take 1 [facility] e 40 mg EC 5-27 tablet by ity of tablet 00:00: mouth [place] 00 daily. Medical Branch lipase-prot Yes [id number] 1{capsu Take 1 [facility] ease-amylas 5-27 le} capsule by it y of e 00:00: mouth 3 [place] 12,000-38,0 00 (three) Medic al 00 -60,000 times Branch unit daily with capsule meals. psyllium Yes [id number] 1{packe Take 1 [facility] husk 3.4 5-27 t} Packet by ity of gram oral 00:00: mouth 2 [place] powder 00 (two) Medical packet times Branch daily. ursodioL Yes [id number] 500mg Take 1 Un you 500 mg 5-27 tablet by ity of tablet 00:00: mouth 2 [place] 00 (two) Medical times Branch daily. dicyclomine Yes [id number] 10mg Take 1 [facility] 10 mg 5-27 capsule by ity of capsule 00:00: mouth 3 [place] 00 (three) Medical times Branch daily. proMETHazin Yes [id number] 12.5mg Take 0.5 [facility] e 25 mg [...] scal 7-10). Indication s: chronic pain lipase-prot Yes [id number] 1{capsu Take 1 [facility] ease-amylas 5-27 le} capsule by it y of e 00:00: mouth 3 [place] 12,000-38,0 00 (three) Medic al 00 -60,000 times Branch unit daily with capsule meals. psyllium Yes [id number] 1{packe Take 1 [facility] husk 3.4 5-27 t} Packet by ity of gram oral 00:00: mouth 2 [place] powder 00 (two) Medical packet times Branch daily. ursodioL 2021-0 Yes [id number] 500mg Take 1 Un you 500 mg 5-27 tablet by ity of tablet 00:00: mouth 2 [place] 00 (two) Medical times Branch daily. dicyclomine 2021-0 Yes [id number] 10mg Take 1 [facility] 10 mg 5-27 capsule by ity of capsule 00:00: mouth 3 [place] 00 (three) Medical times Branch daily. proMETHazin 2021-0 Yes [id number] 12.5mg Take 0.5 [facility] e 25 mg [...] Indication s: chronic pain lipase-prot 2021-0 Yes [id number] 1{capsu Take 1 [facility] ease-amylas 5-27 le} capsule by it y of e 00:00: mouth 3 [place] 12,000-38,0 00 (three) Medic al 00 -60,000 times Branch unit daily with capsule meals. psyllium 0 Yes [id number] 1{packe Take 1 [facility] husk 3.4 5-27 t} Packet by ity of gram oral 00:00: mouth 2 [place] powder 00 (two) Medical packet times Branch daily. ursodioL 2021-0 Yes [id number] 500mg Take 1 Un you 500 mg 5-27 tablet by ity of tablet 00:00: mouth 2 [place] 00 (two) Medical times Branch daily. dicyclomine 2021-0 Yes [id number] 10mg Take 1 [facility] 10 mg 5-27 capsule by ity of capsule 00:00: mouth 3 [place] 00 (three) Medical times Branch daily. proMETHazin 2021-0 Yes [id number] 12.5mg Take 0.5 [facility] e 25 mg [...] Indication s: chronic pain lipase-prot 2021-0 Yes [id number] 1{capsu Take 1 [facility] ease-amylas 5-27 le} capsule by it y of e 00:00: mouth 3 [place] 12,000-38,0 00 (three) Medic al 00 -60,000 times Branch unit daily with capsule meals. psyllium Yes [id number] 1{packe Take 1 [facility] husk 3.4 5-27 t} Packet by ity of gram oral 00:00: mouth 2 [place] powder 00 (two) Medical packet times Branch daily. ursodioL Yes [id number] 500mg Take 1 Un you 500 mg 5-27 tablet by ity of tablet 00:00: mouth 2 [place] 00 (two) Medical times Branch daily. dicyclomine 0 Yes [id number] 10mg Take 1 [facility] 10 mg 5-27 capsule by ity of capsule 00:00: mouth 3 [place] 00 (three) Medical times Branch daily. proMETHazin 0 Yes [id number] 12.5mg Take 0.5 [facility] e 25 mg [...] Indication s: chronic pain lipase-prot 2021-0 Yes [id number] 1{capsu Take 1 [facility] ease-amylas 5-27 le} capsule by it y of e 00:00: mouth 3 [place] 12,000-38,0 00 (three) Medic al 00 -60,000 times Branch unit daily with capsule meals. psyllium 2021-0 Yes [id number] 1{packe Take 1 [facility] husk 3.4 5-27 t} Packet by ity of gram oral 00:00: mouth 2 [place] powder 00 (two) Medical packet times Branch daily. ursodioL 0 Yes [id number] 500mg Take 1 Un you 500 mg 5-27 tablet by ity of tablet 00:00: mouth 2 [place] 00 (two) Medical times Branch daily. dicyclomine 0 Yes [id number] 10mg Take 1 [facility] 10 mg 5-27 capsule by ity of capsule 00:00: mouth 3 [place] 00 (three) Medical times Branch daily. proMETHazin 0 Yes [id number] 12.5mg Take 0.5 [facility] e 25 mg [...] scal 7-10). Indication s: chronic pain lipase-prot Yes [id number] 1{capsu Take 1 [facility] ease-amylas 5-27 le} capsule by it y of e 00:00: mouth 3 [place] 12,000-38,0 00 (three) Medic al 00 -60,000 times Branch unit daily with capsule meals. psyllium Yes [id number] 1{packe Take 1 [facility] husk 3.4 5-27 t} Packet by ity of gram oral 00:00: mouth 2 [place] powder 00 (two) Medical packet times Branch daily. ursodioL 0 Yes [id number] 500mg Take 1 Un you 500 mg 5-27 tablet by ity of tablet 00:00: mouth 2 [place] 00 (two) Medical times Branch daily. dicyclomine 2021-0 Yes [id number] 10mg Take 1 [facility] 10 mg 5-27 capsule by ity of capsule 00:00: mouth 3 [place] 00 (three) Medical times Branch daily. proMETHazin 2021-0 Yes [id number] 12.5mg Take 0.5 [facility] e 25 mg [...] scal 7-10). Indication s: chronic pain lipase-prot 0 Yes [id number] 1{capsu Take 1 [facility] ease-amylas 5-27 le} capsule by it y of e 00:00: mouth 3 [place] 12,000-38,0 00 (three) Medic al 00 -60,000 times Branch unit daily with capsule meals. psyllium Yes [id number] 1{packe Take 1 [facility] husk 3.4 5-27 t} Packet by ity of gram oral 00:00: mouth 2 [place] powder 00 (two) Medical packet times Branch daily. ursodioL Yes [id number] 500mg Take 1 Un you 500 mg 5-27 tablet by ity of tablet 00:00: mouth 2 [place] 00 (two) Medical times Branch daily. dicyclomine 0 Yes [id number] 10mg Take 1 [facility] 10 mg 5-27 capsule by ity of capsule 00:00: mouth 3 [place] 00 (three) Medical times Branch daily. proMETHazin Yes [id number] 12.5mg Take 0.5 [facility] e 25 mg [...] Indication s: chronic pain lipase-prot 2021-0 Yes [id number] 1{capsu Take 1 [facility] ease-amylas 5-27 le} capsule by it y of e 00:00: mouth 3 [place] 12,000-38,0 00 (three) Medic al 00 -60,000 times Branch unit daily with capsule meals. psyllium 2021-0 Yes [id number] 1{packe Take 1 [facility] husk 3.4 5-27 t} Packet by ity of gram oral 00:00: mouth 2 [place] powder 00 (two) Medical packet times Branch daily. ursodioL 0 Yes [id number] 500mg Take 1 Un you 500 mg 5-27 tablet by ity of tablet 00:00: mouth 2 [place] 00 (two) Medical times Branch daily. dicyclomine 0 Yes [id number] 10mg Take 1 [facility] 10 mg 5-27 capsule by ity of capsule 00:00: mouth 3 [place] 00 (three) Medical times Branch daily. proMETHazin 0 Yes [id number] 12.5mg Take 0.5 [facility] e 25 mg [...] scal 7-10). Indication s: chronic pain lipase-prot 0 Yes [id number] 1{capsu Take 1 [facility] ease-amylas 5-27 le} capsule by it y of e 00:00: mouth 3 [place] 12,000-38,0 00 (three) Medic al 00 -60,000 times Branch unit daily with capsule meals. psyllium 0 Yes [id number] 1{packe Take 1 [facility] husk 3.4 5-27 t} Packet by ity of gram oral 00:00: mouth 2 [place] powder 00 (two) Medical packet times Branch daily. ursodioL 2021-0 Yes [id number] 500mg Take 1 Un you 500 mg 5-27 tablet by ity of tablet 00:00: mouth 2 [place] 00 (two) Medical times Branch daily. dicyclomine 2021-0 Yes [id number] 10mg Take 1 [facility] 10 mg 5-27 capsule by ity of capsule 00:00: mouth 3 [place] 00 (three) Medical times Branch daily. proMETHazin 2021-0 Yes [id number] 12.5mg Take 0.5 [facility] e 25 mg [...] scal 7-10). Indication s: chronic pain lipase-prot Yes [id number] 1{capsu Take 1 [facility] ease-amylas 5-27 le} capsule by it y of e 00:00: mouth 3 [place] 12,000-38,0 00 (three) Medic al 00 -60,000 times Branch unit daily with capsule meals. psyllium Yes [id number] 1{packe Take 1 [facility] husk 3.4 5-27 t} Packet by ity of gram oral 00:00: mouth 2 [place] powder 00 (two) Medical packet times Branch daily. ursodioL Yes [id number] 500mg Take 1 Un you 500 mg 5-27 tablet by ity of tablet 00:00: mouth 2 [place] 00 (two) Medical times Branch daily. dicyclomine Yes [id number] 10mg Take 1 [facility] 10 mg 5-27 capsule by ity of capsule 00:00: mouth 3 [place] 00 (three) Medical times Branch daily. proMETHazin Yes [id number] 12.5mg Take 0.5 [facility] e 25 mg [...] Indication s: chronic pain sucralfate 2021- No [id number] 1g Take 1 [facility] 1 gram 5-27 06-09 tablet by ity of tablet 00:00: 00:00 mouth [place] 00 :00 before Medical meals and Branch at bedtime. pantoprazol No [id number] 40mg Take 1 [facility] e 40 mg EC 5-27 06- tablet by ity of tablet 00:00: 00:00 mouth [place] 00 :00 daily. Medical Branch sucralfate No [id number] 1g Take 1 [facility] 1 gram 5-27 - tablet by ity of tablet 00:00: 00:00 mouth [place] 00 :00 before Medical meals and Branch at bedtime. pantoprazol No [id number] 40mg Take 1 [facility] e 40 mg EC 5-27 - tablet by ity of tablet 00:00: 00:00 mouth [place] 00 :00 daily. Medical Branch ursodioL No [id number] 500mg Take 1 U nivers 500 mg 5-27 05-27 tablet by ity of tablet 00:00: 00:00 mouth 2 [place] 00 :00 (two) Medical times Branch daily. psyllium No [id number] 1{packe Take 1 [facility] husk 3.4 5-27 05-27 t} Packet by ity o f gram oral 00:00: 00:00 mouth 2 [place] powder 00 :00 (two) Medical packet times Branch daily. lipase-prot No [id number] 1{capsu Take 1 [facility] ease-amylas 5-27 05-27 le} capsule by i ty of e 00:00: 00:00 mouth 3 [place] 12,000-38,0 00 :00 (three) Medic al 00 -60,000 times Branch unit daily with capsule meals. dicyclomine No [id number] 10mg Take 1 [facility] 10 mg 5-27 05-27 capsule by ity of capsule 00:00: 00:00 mouth 3 [place] 00 :00 (three) Medical times Branch daily. proMETHazin 2021- No [id number] 12.5mg Take 0.5 [facility] e 25 mg 5-27 05-27 tablets by ity o f tablet 00:00: 00:00 mouth [place] 00 :00 every 6 Medical (six) Branch hours as needed for Nausea and Vomiting (N/V) for up to 10 days. HYDROcodone 2021- No [id number] 1{tbl} Take 1 U nivers -acetaminop 09-08 tablet by it y of hen 7.5-325 00:00: 00:00 mouth 2 [place] mg per 00 :00 (two) Medical tablet times Branch daily as needed (Pain scal 7-10). Indication s: chronic pain sucralfate 2021- No [id number] 1g Take 1 [facility] 1 gram 09-08 tablet by ity of tablet 00:00: 00:00 mouth [place] 00 :00 before Medical meals and Branch at bedtime. pantoprazol 2021- No [id number] 40mg Take 1 [facility] e 40 mg EC 09-08 tablet by ity of tablet 00:00: 00:00 mouth [place] 00 :00 daily. Medical Branch lidocaine Yes 15mL 15 mL, Univer s 2% viscous 09-07 Oral, ity of (LIDOCAINE 23:21: Q4HPRN, [place] VISCOUS) 2 53 Starting Medic al % solution on Sat Branch 15 mL 09/07/21 at 1821, Until [...] Yes 7.5mg 7.5 mg, Un you -acetaminop 09-06 Oral, Q6H, it y of hen (HYCET) 23:30: First dose [place] 7.5-325 00 (after Medical mg/15 mL last Branch solution modificati 7.5 mg on) on Sat09/06/21 at 1830, Until Discontinu ed proMETHazin Yes 12.5mg 12.5 mg, Univers e -25 Oral, ity of (PHENERGAN) 18:38: Q6HPRN, [place] tablet 12.5 27 Starting Medi brandy mg on Sat Branch 09/06/21 at 1338, Until Discontinu ed, Routine, Nausea and Vomiting (N/V) gadobenate 2021- No [id number] .2mL/kg 15.7 mL Univers dimeglumine 09-06 (0.2 [...] of hen (HYCET) 13:00: 23:21 First dose [place] 7.5-325 00 :53 (after Medical mg/15 mL last Branch solution modificati 7.5 mg on) on Sat09/05/21 at 0800, Until Discontinu ed HYDROcodone 2021- No 10mg 10 mg, Uni vers -acetaminop 09-05 Oral, ity of hen (HYCET) 01:00: 01:11 ONCE, 1 [place] 7.5-325 00 :00 dose, On Medical mg/15 mL Mon Branch solution 10 09/04/21 at mg 2000, Routine alum-mag Yes 30mL 30 mL, Univers hydroxide-s 09-04 Oral, ity of imeth 22:31: Q6HPRN, [place] (MAALOX 21 Starting Medical PLUS / on Mon Branch MAG-AL 09/04/21 at PLUS) 1731, 200-200-20 Until mg/5 mL Discontinu suspension ed, 30 mL Routine, Indigestio n, Heartburn psyllium Yes 1{packe 1 Packet, U nivers husk 09-04 t} Oral, BID, ity of (METAMUCIL 01:00: First dose [place] (SUGAR 00 on Sun Medical FREE)) 3.4 09/03/21 at [facility] gram oral 1999, powder Until packet 1 Discontinu Packet ed, Routine HYDROcodone 2021- No 10mg 10 mg, Uni vers -acetaminop 09-04 Oral, BID, i ty of hen (HYCET) 01:00: 22:54 First dose [place] 7.5-325 00 :32 (after Medical mg/15 mL [...] Slow IV ity of (PROTONIX) 17:30: Push, [place] injection 00 Q24H, Medical 40 mg First dose Branch on 09/03/21 at 1230, Until Discontinu ed dicyclomine Yes 10mg 10 mg, Univ ers (BENTYL) 09-03 Oral, ity of capsule 10 16:19: TIDPRN, [place] mg 52 Starting Medical on Sun Branch 09/03/21 at 1119, Until Discontinu ed, Routine, Abdominal pain acetaminoph Yes 325mg 325 mg, Un you en 09-03 Oral, ity of (TYLENOL) 14:40: Q6HPRN, [place] tablet 325 10 Starting Medic al mg on Sun Branch 09/03/21 at 0940, Until Discontinu ed, Routine, Pain (scale 1-3), Pain (scale 4-6) FENTanyl PF 0 2021- No 50ug 50 mcg, Un you (SUBLIMAZE 09-03-22 Slow IV ity o f (PF)) 14:39: 16:17 Push, [place] injection 39 :20 Q6HPRN, Medical 50 mcg Starting Branch on 09/03/21 at 0939, Until 09/03/21 at 1117, Routine, Pain (scale 7-10) polyethylen 2021-0 Yes 17g 17 g, Unive rs e glycol 09-02 Oral, ity of 3350 powder 14:00: DAILY, [place] 17 g 00 First dose Medical on [facility] Branch 09/02/21 at 0900, Until Discontinu ed, Routine fenofibrate 2021-0 Yes 134mg 134 mg, Un you micronized 09-02 Oral, ity of (LOFIBRA) 14:00: DAILY, [place] capsule 134 00 First dose Me dical mg on [facility] Branch 09/02/21 at 0900, Until Discontinu ed losartan 2021-0 Yes 100mg 100 mg, Unive rs (COZAAR) 09-02 Oral, ity of tablet 100 14:00: DAILY, [place] mg 00 First dose Medical on [facility] Branch 09/02/21 at 0900, Until Discontinu ed, Routine heparin 2021-0 Yes 5000U 5,000 Univers (porcine) 09-02 Units, ity of injection 13:00: Subcutaneo [place] 5,000 Units 00 us, Q12H, Med ical First dose Branch on [facility] 09/02/21 at 0800, Until Discontinu ed, Routine sennosides 2021-0 Yes 8.6mg 8.6 mg, Uni vers (SENOKOT) 09-02 Oral, BID, ity of tablet 8.6 13:00: First dose [place] mg 00 on [facility] Medical 09/02/21 at Branch 0800, Until Discontinu ed, Routine lipase-prot 2021-0 Yes 1{capsu 1 capsule, Univers ease-amylas 09-02 le} Oral, TID ity of e (CREON) 13:00: MEALS, [place] 12,000-38,0 00 First dose Me dical 00 -60,000 on [facility] Branch unit 09/02/21 at capsule 1 0800, capsule Until Discontinu ed, Routine ursodioL 2021-0 Yes 500mg 500 mg, Unive rs (EUGENE) 09-02 Oral, BID, ity of tablet 500 13:00: First dose [place] mg 00 on [facility] Medical 09/02/21 at Branch 0800, Until Discontinu ed, Routine gabapentin Yes 300mg 300 mg, Uni vers (NEURONTIN) 09-02 Oral, BID, it y of capsule 300 13:00: First dose [place] mg 00 on [facility] Medical 09/02/21 at Branch 0800, Until Discontinu ed, Routine HYDROcodone 2021- No 7.5mg 7.5 mg, U nivers -acetaminop 09-02 Oral, BID, i ty of hen (HYCET) 13:00: 16:17 First dose [place] 7.5-325 00 :46 on [facility] Medical mg/15 mL 09/02/21 at [facility] h solution 0800, 7.5 mg Until Discontinu ed FENTanyl PF 2021- No 25ug 25 mcg, Un you (SUBLIMAZE 09-02 Slow IV ity o f (PF)) 12:56: 12:17 Push, [place] injection 31 :41 Q6HPRN, Medical 25 mcg Starting Branch on 09/02/21 at 0756, Until 09/03/21 at 0717, Routine, Pain (scale 7-10) traMADoL 2021- No 50mg 50 mg, Univer s (ULTRAM) 09-02 Oral, ity of tablet 50 12:55: 12:17 Q8HPRN, [place] mg 47 :33 Starting Medical on [facility] Branch 09/02/21 at 0755, Until 09/03/21 at 0717, Routine, Pain (scale 4-6) traZODone Yes 100mg 100 mg, Univ ers (DESYREL) 09-02 Oral, QHS, ity of tablet 100 03:30: First dose [place] mg 00 on Sat Medical 09/01/21 at Branch 2230, Until Discontinu ed, Routine QUEtiapine 0 Yes 400mg 400 mg, Uni vers (SEROQUEL) 09-02 Oral, QHS, ity of tablet 400 03:30: First dose [place] mg 00 on Sat Medical 09/01/21 at Branch 2230, Until Discontinu ed, Routine NaCl 0.9% 2021- No 1000mL at 500 Uni vers (NS) bolus 09-02 mL/hr, ity of infusion 03:30: 05:52 1,000 mL, [place] 1,000 mL 00 :00 IV Medical Infusion, Branch ONCE, 1 dose, On Sat09/01/21 at 2230, [place] bisacodyL Yes 10mg 10 mg, Univer s (DULCOLAX) 09-02 Rectal, ity of suppository 03:21: BIDPRN, [place] 10 mg 19 Starting Medical on Sat Branch 09/01/21 at 2221, Until Discontinu ed, Routine, Constipati on, Constipati on unresolved by oral medication s tiZANidine Yes 4mg 4 mg, Univer s (ZANAFLEX) 09-02 Oral, ity of tablet 4 mg 03:20: Q6HPRN, [place] 43 Starting Medical on Sat Branch 09/01/21 at 2220, Until Discontinu ed, Routine, [...] No 4mg 4 mg, Slow Univers (ZOFRAN 5-21 05-25 IV Push, ity of (PF)) 02:38: 18:38 [...] 1 Medical 25 mcg dose, On Branch Sat09/01/21 at 1845, STAT ondansetron 2021- No 4mg [...] No 4mg 4 mg, Slow Univers mg/mL) 5-20 05-20 IV Push, ity of injection 4 21:00: 20:10 ONCE, 1 [place] mg 00 :00 dose, On [facility] 09/01/21 at 1600, STAT dicyclomine 2021- No 20mg 20 mg, Uni vers (BENTYL) 5-15 05-15 Oral, ity of tablet 20 20:45: 19:43 ONCE, 1 [place] mg 00 :00 dose, On [facility] 08/27/21 at 1545, Routine maalox:diph 2021- No 15mL 15 mL, Uni vers enhydrAMINE 5-15 05-15 Oral, ity of :lidocaine 20:00: 18:58 ONCE, 1 [place] 2 % viscous 00 :00 dose, On Medi brandy 1:1:1 [place] [facility] (FIRST-MOUT 08/27/21 at [facility]) 1500, oral Routine suspension 15 mL FENTanyl PF 2021- No 50ug 50 mcg, Un you (SUBLIMAZE 08-27 05-15 Slow IV ity o f (PF)) 17:49: 17:52 Push, [place] injection 00 :00 ONCE, 1 Medical 50 mcg dose, On Branch [place] 08/27/21 at 1300, STAT morpHINE (4 2021- No 4mg 4 mg, Slow Univers mg/mL) 5-15 05-15 IV Push, ity of injection 4 17:15: 16:22 ONCE, 1 [place] mg 00 :00 dose, On [facility] 08/27/21 at 1215, STAT ondansetron 2021-2021- No 4mg 4 mg, Slow Univers (ZOFRAN 5-15 05-15 IV Push, ity of (PF)) 17:15: 16:22 ONCE, 1 [place] injection 4 00 :00 dose, On Medi brandy mg [place] Branch 08/27/21 at 1215, [place] NaCl 0.9% 2021- No 1000mL at 999 Uni vers (NS) bolus 08-27 05-15 mL/hr, ity of infusion 17:15: 18:59 1,000 mL, [place] 1,000 mL 00 :00 IV Medical Infusion, Branch ONCE, 1 dose, On 08/27/21 at 1215, [place] iopamidol 2021- No [id number] 100mL 100 mL, Univers (ISOVUE 08-27 05-15 Intravenou ity o f 370-500 mL) 16:45: 16:44 s, ONCE, 1 [place] injection 00 :00 dose, On Medica l 100 mL [place] Branch 08/27/21 at 1145, Routine traZODone 2021-0 Yes 100mg Take 100 Uni vers 100 mg 4-16 mg by ity of tablet 14:03: mouth at [place] 58 bedtime. Medical Branch losartan 2021-0 Yes 100mg [...] times Medical daily. For Branch anxiety QUEtiapine Yes 400mg Take 400 Un you (SEROQUEL) 4-16 mg by ity of 400 mg 14:03: mouth [place] tablet 58 daily. Medical Patient Branch doesn't like to take it divalproex Yes 500mg Take 500 Un you ER 4-16 mg by ity of (DEPAKOTE 14:03: mouth 2 [place] ER) 500 mg 58 (two) Medical 24 hr times Branch tablet daily. For anxiety lactulose Yes 15mL 15 mL, Univer s (CEPHULAC) 4-16 Oral, ity of solution 15 14:00: DAILY, [place] mL 00 First dose Medical (after Branch last reorder) on 07/29/21 at 0900, Until Discontinu ed, Routine proMETHazin Yes [id number] 25mg Take 1 Univers e 25 mg 4-16 tablet by ity of tablet 00:00: mouth [place] 00 every 4 Medical (four) Branch hours as needed for Nausea and Vomiting (N/V). proMETHazin Yes [id number] 25mg Take 1 Univers e 25 mg 4-16 tablet by ity of tablet 00:00: mouth [place] 00 every 4 Medical (four) Branch hours as needed for Nausea and Vomiting (N/V). proMETHazin Yes [id number] 25mg Take 1 Univers e 25 mg 4-16 tablet by ity of tablet 00:00: mouth [place] 00 every 4 Medical (four) Branch hours as needed for Nausea and Vomiting (N/V). proMETHazin 2021- No [id number] 25mg Take 1 Univers e 25 mg 4-16 05-27 tablet by ity of tablet 00:00: 00:00 mouth [place] 00 :00 every 4 Medical (four) Branch hours as needed for Nausea and Vomiting (N/V). docusate 2021- No [id number] 100mg Take 1 Univers 100 mg 4-16 05-17 capsule by ity of capsule 00:00: 04:59 mouth [place] 00 :00 daily for Medical 30 days. Branch hydrALAZINE 2021- No [id number] 50mg Take 1 Univers 50 mg 4-16 05-17 tablet by ity of tablet 00:00: 04:59 mouth 2 [place] 00 :00 (two) Medical times Branch daily for 30 days. docusate 2021- No [id number] 100mg Take 1 Univers 100 mg 4-16 05-17 capsule by ity of capsule 00:00: 04:59 mouth [place] 00 :00 daily for Medical 30 days. Branch hydrALAZINE 2021- No [id number] 50mg Take 1 Univers 50 mg 4-16 05-17 tablet by ity of tablet 00:00: 04:59 mouth 2 [place] 00 :00 (two) Medical times Branch daily for 30 days. docusate 2021- No [id number] 100mg Take 1 [facility] 100 mg 4-16 05-17 capsule by ity of capsule 00:00: 04:59 mouth [place] 00 :00 daily for Medical 30 days. Branch hydrALAZINE 2021- No [id number] 50mg Take 1 [facility] 50 mg 4-16 05-17 tablet by ity of tablet 00:00: 04:59 mouth 2 [place] 00 :00 (two) Medical times Branch daily for 30 days. HYDROcodone 2021- No [id number] 1{tbl} Take 1 U nivers -acetaminop -16 -22 tablet by it y of hen (NORCO) 00:00: 04:59 mouth [place] 10-325 mg 00 :00 every 6 Medical tablet (six) Branch hours as needed for Pain (scale 7-10) for up to 5 days. Indication s: acute pain HYDROcodone No [id number] 1{tbl} Take 1 U nivers -acetaminop 4-16 -22 tablet by it y of hen (NORCO) 00:00: 04:59 mouth [place] 10-325 mg 00 :00 every 6 Medical tablet (six) Branch hours as needed for Pain (scale 7-10) for up to 5 days. Indication s: acute pain lactulose No 30mL 30 mL, Unive rs (CEPHULAC) [...] Q4HPRN, Medical 0.6 mg Starting Branch on Sat07/28/21 at 1005, Until 07/30/21 at 1004, Routine, [...] 4 mg, Slow Un you injection 4 07-27 IV Push, ity of mg 18:29: 15:05 Q3HPRN, [place] 31 :55 Starting Medical on [place] Branch 07/27/21 at 1329, Until 07/28/21 at 1005, Routine, Pain (scale 7-10) HYDROcodone [...] :00 ONCE, 1 Medical dose, On Branch 07/26/21 at 2200, Routine magnesium 2021- No 2g 2 g, IV Univ ers sulfate in 07-27 Piggyback, it y of water 2 01:00: 01:53 Administer [place] gram/50 mL 00 :00 over 60 Medica l (4 %) Minutes, Branch infusion 2 ONCE, 1 g dose, On Sat07/26/21 at 2000, Routine hydrALAZINE 2021- No 25mg 25 mg, Uni vers (APRESOLINE 07-27 Oral, BID, i ty of ) tablet 25 01:00: 18:32 First dose [place] mg 00 :11 on Sat07/26/21 at Branch 2000, Until Discontinu ed, Routine hydralAZINE Yes 20mg 20 mg, Univ ers (APRESOLINE 07-26 Slow IV ity o f ) injection 21:30: Push, [place] 20 mg 36 Q4HPRN, Medical Starting Branch on Sat07/26/21 at 1630, Until Discontinu ed, STAT, DBP=>100; SBP=>180<b r>Indicati on: Hypertensi ve Emergency D5W-LR IV Yes 1000mL at 150 [facility] ers infusion 4-13 mL/hr, IV ity of 1,000 mL 16:15: Infusion, [place] 00 CONTINUOUS Medical , Starting Branch on Sat07/26/21 at 1115, Until Discontinu ed, Routine QUEtiapine Yes 400mg 400 mg, Uni vers (SEROQUEL) 4-13 Oral, QHS, ity of tablet 400 02:00: First dose [place] mg 00 on Sat [facility] 07/25/21 at Branch 2100, Until Discontinu ed, Routine divalproex Yes 500mg 500 mg, Uni vers (DEPAKOTE) 07-26 Oral, ity of EC tablet 01:00: Q12H, [place] 500 mg 00 First dose Medical on [place] 07/25/21 at 2000, Until Discontinu ed LORazepam 2021- No .5mg 0.5 mg, Univ ers (ATIVAN) 07-26 Slow IV ity of injection 00:45: 00:07 Push, [place] 0.5 mg 00 :00 ONCE, 1 Medical dose, On Branch 4/12/22 at 1945, Routine LORazepam Yes .5mg 0.5 [...] :00 ONCE, 1 Medical dose, On Branch 07/25/21 at 1815, STAT
In dication: Hypertensi ve Emergency HYDROmorpho No 1mg 1 mg, Slow Univers ne 07-25 IV Push, ity of (DILAUDID) 17:59: 17:58 Q4HPRN, [place] injection 1 31 :31 Starting Medi brandy mg on [facility] Branch 07/25/21 at 1259, Until Sat07/27/21 at 1258, Routine, Pain (scale 7-10)
U se approved by (Faculty): ADC PROVIDER docusate Yes 100mg 100 mg, Unive rs (COLACE) 07-25 Oral, BID, ity o f capsule 100 16:30: First dose [place] mg 00 on [facility] 07/25/21 at Branch 1130, Until Discontinu ed, Routine sennosides- 2021- No 1{tbl} 1 tablet, [facility] docusa 07-25 Oral, ity of sodium 16:30: 21:16 DAILY, [place] (SENOKOT-S) 00 :00 First dose Me dical 8.6-50 mg on [facility] per tablet 07/25/21 at 1 tablet 1130, Until Discontinu ed, Routine hydralAZINE 2021- No 10mg 10 mg, Uni vers (APRESOLINE 07-25 Slow IV ity of ) injection 16:23: 21:32 Push, [place] 10 mg 02 :00 Q4HPRN, Medical Starting Branch on Sat07/25/21 at 1123, Until Sat07/26/21 at 1632, STAT, DBP=&g t;100; SBP=>160<b r>Indicati on: Hypertensi ve Emergency traZODone 0 Yes 100mg 100 mg, Univ ers (DESYREL) 4-12 Oral, QHS, ity of tablet 100 02:00: First dose [place] mg [address] [facility] Medical 07/24/21 at Branch 2100, Until Discontinu ed, Routine morpHINE 2021-0 2021- No 4mg 4 mg, Slow Un you injection 4 07-2512 IV Push, ity of mg 02:00: 17:59 Q3HPRN, [place] 00 :[address] [facility] Branch 07/24/21 at 2100, Until 07/25/21 at 1259, Routine, Pain (scale 7-10) proMETHazin Yes 12.5mg 12.5 mg, Univers e 07-24 IV ity of (PHENERGAN) 23:52: Piggyback, [place] 12.5 mg in 45 Q4HPRN, Medica l NaCl 0.9% Starting Branch (NS) [address] [facility] IV 07/24/21 at piggyback 1852, Until Discontinu ed, Routine, Nausea and Vomiting (N/V) morpHINE 0 2021- No 4mg 4 mg, Slow Un you injection 07-2411 IV Push, ity of mg 19:45: 23:44 Q3HPRN, [place] 00 :00 Starting Medical on [facility] 07/24/21 at 1445, Until [facility] 07/24/21 at 1844, Routine, Pain (scale 7-10) SERTraline 0 Yes 25mg 25 mg, Unive rs (ZOLOFT) 4-11 Oral, ity of tablet 25 14:00: DAILY, [place] mg 00 First dose Medical on [facility] Branch 07/24/21 at 0900, Until Discontinu ed, Routine losartan 0 Yes 100mg 100 mg, Unive rs (COZAAR) 4-11 Oral, ity of tablet 100 14:00: DAILY, [place] mg 00 First dose Medical on [facility] Branch 07/24/21 at 0900, Until Discontinu ed, Routine fenofibrate 0 Yes 134mg 134 mg, Un you micronized 4-11 Oral, ity of (LOFIBRA) 14:00: DAILY, [place] capsule 134 00 First dose Me dical mg on Sat07/24/21 at 0900, Until Discontinu ed enoxaparin Yes 30mg 30 mg, Unive rs (LOVENOX) 07-24 Subcutaneo ity of injection 14:00: us, DAILY, [place] 30 mg 00 First dose Medical on Sat07/24/21 at 0900, Until Discontinu ed, Routine busPIRone Yes 10mg 10 mg, Univer s (BUSPAR) 07-24 Oral, BID, ity o f tablet 10 13:00: First dose [place] mg 00 on Sat07/24/21 at Branch 0800, Until Discontinu ed, Routine gabapentin Yes 300mg 300 mg, Uni vers (NEURONTIN) 07-24 Oral, BID, it y of capsule 300 13:00: First dose [place] mg 00 on Sat07/24/21 at Branch 0800, Until Discontinu ed, Routine lactated No 1000mL at 150 Univ ers ringers IV 07-24 04-13 mL/hr, ity of infusion 13:00: 15:03 1,000 mL, [place] as 1,000 mL 00 :17 IV Medical Infusion, Branch CONTINUOUS , Starting on Sat07/24/21 at 0800, Until Sat07/26/21 at 1003, Routine magnesium 2021- No 2g 2 g, IV [...] 4 35 Starting Medi brandy mg on Sat Branch 07/23/21 at 2326, Until Discontinu ed, [place], Nausea and Vomiting (N/V) FENTanyl PF 2021- No 75ug 75 mcg, Un you (SUBLIMAZE 07-24 Slow IV ity o f (PF)) 00:15: 23:11 Push, [place] injection 00 :00 ONCE, 1 Medical 75 mcg dose, On [facility] 07/23/21 at 1915, STAT iopamidol 2021- No [id number] 100mL 100 mL, Univers (ISOVUE 07-24 Intravenou ity o f 370-500 mL) 00:00: 00:00 s, ONCE, 1 [place] injection 00 :00 dose, On Medica l 100 mL [facility] 07/23/21 at 1900, Routine morpHINE 2021- No 4mg 4 mg, Slow Un you injection 4 07-23 IV Push, ity of mg 23:57: 19:32 Q4HPRN, [place] 08 :42 Starting Medical on [facility] 07/23/21 at 1857, Until 07/24/21 at 1432, Routine, Pain (scale 7-10) HYDROcodone 2021- No 1{tbl} 1 tablet, Univers -acetaminop 07-23 Oral, ity of hen (NORCO 23:57: 23:56 Q6HPRN, [place] as 5) 5-325 mg 06 :06 Starting Medi brandy tablet 1 on [facility] tablet 07/23/21 at 1857, Until 07/25/21 at 1856, Routine, Pain (scale 4-6) acetaminoph Yes 650mg 650 mg, Un you en 07-23 Oral, ity of (TYLENOL) 23:57: Q6HPRN, [place] tablet 650 04 Starting Medic al mg on [facility] 07/23/21 at 1857, Until Discontinu ed, Routine, Pain (scale 1-3) haloperidol 2021- No 2.5mg 2.5 mg, U nivers lactate 07-23 Intravenou ity o f (HALDOL) 23:30: 22:31 s, ONCE, 1 [place] injection 00 :00 dose, On Medica l 2.5 mg [facility] 07/23/21 at 1830, STAT ondansetron 2021- No 4mg 4 mg, Slow Univers (ZOFRAN 4-10 04-10 IV Push, ity of (PF)) 22:00: 21:22 ONCE, 1 [place] injection 4 00 :00 dose, On Medi brandy mg Sun Branch 07/23/21 at 1700, [place] FENTanyl PF 2021- No 75ug 75 mcg, Un you (SUBLIMAZE 07-23 04-10 Slow IV ity o f (PF)) 22:00: 21:24 Push, [place] injection 00 :00 ONCE, 1 Medical 75 mcg dose, On Branch 07/23/21 at 1700, Routine NaCl 0.9% 2021- No 1000mL at 999 Uni vers (NS) bolus 07-23 04-10 mL/hr, ity of infusion 22:00: 23:41 1,000 mL, [place] as 1,000 mL 00 :00 IV Medical Infusion, Branch ONCE, 1 dose, On 07/23/21 at 1700, [place] water for Yes PRN, Univers irrigation 07-04 Starting ity o f irrigation 16:35: on e [place] solution 00 07/04/21 at Medic al 1135, Branch Until Discontinu ed, Routine, Intra-op simethicone Yes PRN, Univer s (GAS RELIEF 07-04 Starting ity of (SIMETHICON 16:35: on Tue [place] E)) 40 00 07/04/21 at Medical mg/0.6 mL 1135, Branch drops Until Discontinu ed, Routine, Intra-op water for 2021- No PRN, Univers irrigation 07-04 Starting ity of irrigation 16:35: 20:27 on e [place] solution 00 :50 07/04/21 at Medic al 1135, Branch Until Sat07/04/21 at 1527, Routine, Intra-op simethicone 2021- No PRN, Unive rs (GAS RELIEF 07-04 Starting ity of (SIMETHICON 16:35: 20:27 on e [place] E)) 40 00 :50 07/04/21 at Medical mg/0.6 mL 1135, Branch drops Until Sat07/04/21 at 1527, Routine, Intra-op lactated 2021- No 1000mL at 42 Unive rs ringers IV 3-22 03-22 mL/hr, ity of infusion 16:15: 16:04 1,000 mL, [place] 1,000 mL 00 :00 IV Medical Infusion, Branch ONCE, 1 dose, On Sat07/04/21 at 1115, Routine, DSU Pre-op lactated 2021-0 2- No 1000mL at 42 Unive rs ringers IV 3-22 03-22 mL/hr, ity of infusion 16:15: 16:04 1,000 mL, [place] 1,000 mL 00 :00 IV Medical Infusion, Branch ONCE, 1 dose, On Sat07/04/21 at 1115, Routine, DSU Pre-op traZODone 2021-0 Yes 100mg Take 100 Uni vers 100 mg 3-22 mg by ity of tablet 13:27: mouth at [place] bedtime. Medical Branch losartan 2021-0 Yes 100mg Take 100 Univ ers 100 mg 3-22 mg by ity of tablet 13:27: mouth [place] 47 daily. Medical Branch gabapentin 2021-0 Yes 300mg Take 300 Un you 300 mg 3-22 mg by ity of capsule 13:27: mouth 2 [place] 47 (two) Medical times Branch daily. proMETHazin 2021-0 [...] times Branch tablet daily. For anxiety traZODone 2-0 Yes 100mg Take 100 Uni [...] Branch doesn't like to take it divalproex Yes 500mg Take 500 Un you ER 3-22 mg by ity of (DEPAKOTE 13:27: mouth 2 [place] ER) 500 mg 47 (two) Medical 24 hr times Branch tablet daily. For anxiety ondansetron 2021- No 4mg 4 mg, Slow Univers (ZOFRAN 06-04-20 IV Push, ity of (PF)) 04:30: 03:37 ONCE, 1 [place] injection 4 00 :00 dose, On Medi brandy mg Sat Branch 06/03/21 at 2230, [place] labetaloL 2021- No 20mg 20 mg, Unive rs (NORMODYNE) 06-04-20 Slow IV ity of injection 04:30: 16:29 Push, [place] 20 mg 00 :00 ONCE, 1 Medical dose, On Branch 06/03/21 at 2230, [place] morpHINE 2021- No 4mg 4 mg, Slow Un you injection 4 06-04-20 IV Push, ity of mg 04:30: 03:37 ONCE, 1 [place] 00 :00 dose, On Medical Sat Branch 06/03/21 at 2230, STAT pantoprazol Yes 40mg 40 mg, Univ ers e 2-20 Slow IV ity of (PROTONIX) 02:00: Push, [place] injection 00 Q12H, Medical 40 mg First dose Branch on 06/03/21 at 2000, Until Discontinu ed maalox:diph 2021- No 15mL 15 mL, Uni vers enhydrAMINE 06-04 Oral, ity of :lidocaine 02:00: 01:01 ONCE, 1 [place] 2 % viscous 00 :00 dose, On Medi brandy 1:1:1 Sat Branch (FIRST-MOUT 06/03/21 at [facility]) 1999, [place] oral suspension 15 mL iopamidol 2021- No [id number] 100mL 100 mL, Univers (ISOVUE 06-04- Intravenou ity o f 370-500 mL) 01:28: [...] Branch 06/03/21 at 1530, Routine proMETHazin Yes [id number] 25mg Insert 1 Univers e 25 mg 2-19 Suppositor ity of suppository 00:00: y [place] 00 rectum Medical every 4 Branch (four) hours as needed for Nausea and Vomiting (N/V), N/V unresponsi ve to Ondansetro n or N/V unresponsi ve to oral antiemetic s. proMETHazin Yes [id number] 25mg Insert 1 Univers e 25 mg 2-19 Suppositor ity of suppository 00:00: y into [place] 00 rectum Medical every 4 Branch (four) hours as needed for Nausea and Vomiting (N/V), N/V unresponsi ve to Ondansetro n or N/V unresponsi ve to oral antiemetic s. proMETHazin Yes [id number] 25mg Insert 1 Univers e 25 mg 2-19 Suppositor ity of suppository 00:00: y into [place] 00 rectum Medical every 4 Branch (four) hours as needed for Nausea and Vomiting (N/V), N/V unresponsi ve to Ondansetro n or N/V unresponsi ve to oral antiemetic s. proMETHazin Yes [id number] 25mg Insert 1 Univers e 25 mg 2-19 Suppositor ity of suppository 00:00: y into [facility] rectum Medical every 4 Branch (four) hours as needed for Nausea and Vomiting (N/V), N/V unresponsi ve to Ondansetro n or N/V unresponsi ve to oral antiemetic s. proMETHazin Yes [id number] 25mg Insert 1 Univers e 25 mg 2-19 Suppositor ity of suppository 00:00: y into rectum Medical every 4 Branch (four) hours as needed for Nausea and Vomiting (N/V), N/V unresponsi ve to Ondansetro n or N/V unresponsi ve to oral antiemetic s. proMETHazin Yes [id number] 25mg Insert 1 Univers e 25 mg 2-19 Suppositor ity of suppository 00:00: y into [facility] rectum Medical every 4 Branch (four) hours as needed for Nausea and Vomiting (N/V), N/V unresponsi ve to Ondansetro n or N/V unresponsi ve to oral antiemetic s. proMETHazin Yes [id number] 25mg Insert 1 Univers e 25 mg 2-19 Suppositor ity of suppository 00:00: y into rectum Medical every 4 Branch (four) hours as needed for Nausea and Vomiting (N/V), N/V unresponsi ve to Ondansetro n or N/V unresponsi ve to oral antiemetic s. proMETHazin 2021- No [id number] 25mg Insert 1 Univers e 25 mg 2-19 05-27 Suppositor ity o f suppository 00:00: 00:00 y into [facility] 00 :00 rectum Medical every 4 Branch (four) hours as needed for Nausea and Vomiting (N/V), N/V unresponsi ve to Ondansetro n or N/V unresponsi ve to oral antiemetic s. morpHINE 2021- No 4mg 4 mg, Slow Un you injection 4 2-10 14-07 IV Push, ity of mg 07:30: 06:35 ONCE, [place] 00 :00 dose, On Medical Sat05/22/21 Branch at 0130, STAT ondansetron 2021- No 4mg 4 mg, Slow Univers (ZOFRAN 05-22 IV Push, ity of (PF)) 07:30: 06:35 ONCE, 1 [place] injection 4 00 :00 dose, On Medi brandy mg 05/22/21 Branch at 0130, [place] iohexol 2021- No [id number] 100mL 100 mL, Univers (OMNIPAQUE 05-22 Intravenou it y of 350 06:15: 06:04 s, ONCE, 1 [place] BULK-100 00 :00 dose, On Medical mL) [facility] 05/22/21 Branch injection at 0015, 100 mL Routine traZODone Yes 100mg Take 100 Uni vers 100 mg 2-06 mg by ity of tablet 23:27: mouth at [place] [address] bedtime. Medical Branch traZODone Yes 100mg Take 100 Uni vers 100 mg 2-06 mg by ity of tablet 23:27: mouth at [place] 53 bedtime. Medical Branch gabapentin 0 Yes 300mg Take 300 Un you 300 mg 2-06 mg by ity of capsule 23:27: mouth 2 [place] 26 (two) Medical times Branch daily. gabapentin 0 Yes 300mg Take 300 Un you 300 mg 2-06 mg by ity of capsule 23:27: mouth 2 [place] 26 (two) Medical times Branch daily. erythromyci [...] by ity of capsule 09:16: mouth 2 [place] 01 (two) Medical times Branch daily. diazePAM [...] ity of capsule 09:16: mouth 2 [place] (two) Medical times Branch daily. diazePAM 2 [...] mouth [place] 01 daily. Medical Branch losartan 2021-0 Yes 100mg Take 100 Univ ers 100 mg 2-03 mg by ity of tablet 09:16: mouth [place] 01 daily. Medical Branch montelukast 2021- No [id number] 10mg Take 1 Univers (SINGULAIR) 2-06 tablet by it y of 10 mg 00:00: 05:59 mouth [place] tablet 00 :00 daily for Medical 30 days. Branch montelukast 2021- No [id number] 10mg Take 1 Univers (SINGULAIR) 2-06 tablet by it y of 10 mg 00:00: 05:59 mouth [place] tablet 00 :00 daily for Medical 30 days. Branch montelukast 2021- No [id number] 10mg Take 1 Univers (SINGULAIR) 05-18- tablet by it y of 10 mg 00:00: 05:59 mouth [place] tablet 00 :00 daily for Medical 30 days. Branch benzonatate 2021- No [id number] 200mg Take 2 Univers (TESSALON 2- 02-14 capsules ity o f PERLES) 100 00:00: 05:59 by mouth [place] mg capsule 00 :00 every 8 Medica l (eight) Branch hours for 10 days. benzonatate 2021- No [id number] 200mg Take 2 Univers (TESSALON 2-03 02-14 capsules ity o f PERLES) 100 00:00: 05:59 by mouth [place] mg capsule 00 :00 every 8 Medica l (eight) Branch hours for 10 days. benzonatate 2021- No [id number] 200mg Take 2 Univers (TESSALON 2-03 02-14 capsules ity o f PERLES) 100 00:00: 05:59 by mouth [place] mg capsule 00 :00 every 8 Medica l (eight) Branch hours for 10 days. benzonatate 2021- No [id number] 200mg Take 2 Univers (TESSALON 2-03 02-06 capsules ity o f PERLES) 100 00:00: 00:00 by mouth [place] mg capsule 00 :00 every 8 Medica l (eight) Branch hours for 10 days. montelukast 2021- No [id number] 10mg Take 1 Univers (SINGULAIR) 2-06 tablet by it y of 10 mg 00:00: 00:00 mouth [place] tablet 00 :00 daily for Medical 30 days. Branch traZODone Yes 100mg Take 100 Uni vers 100 mg 1-03 mg by ity of tablet 10:57: mouth at [place] [address] bedtime. Medical Branch losartan Yes 100mg Take 100 Univ ers 100 mg 1-03 mg by ity of tablet 10:57: mouth [place] [address] daily. Medical Branch gabapentin Yes 300mg Take 300 Un you 300 mg 1-03 mg by ity of capsule 10:57: mouth 2 [place] 34 (two) Medical times Branch daily. diazePAM [...] by ity of tablet 10:57: mouth at [place] [address] bedtime. Medical Branch traZODone Yes 100mg Take 100 Uni vers 100 mg 1-03 mg by ity of tablet 10:57: mouth at [place] [address] bedtime. Medical Branch traZODone Yes 100mg Take 100 Uni vers 100 mg 1-03 mg by ity of tablet 10:57: mouth at [place] [address] bedtime. Medical Branch maalox:diph No 15mL 15 mL, Uni vers enhydrAMINE 04-15 Oral, ity of :lidocaine 20:45: 20:38 ONCE, 1 [place] 2 % viscous 00 :00 dose, On Medi brandy 1:1:1 04/15/21 Branch (FIRST-MOUT at 1445, HWASH BLM) Routine oral suspension 15 mL famotidine No [...] dose, On 04/15/21 at 1445, [place] iopamidol No [id number] 120mL 120 mL, Univers (ISOVUE 04-15 Intravenou ity o f 370-500 mL) 20:13: 20:14 s, ONCE, 1 [place] injection 00 :00 dose, On Medica l 120 mL 04/15/21 Branch at 1430, Routine famotidine No [id number] 40mg Take 2 Univers (PEPCID) 20 04-15 tablets by i ty of mg tablet 00:00: 05:59 mouth 2 [place] 00 :00 (two) Medical times Branch daily for 15 days. proMETHazin No [id number] 25mg Take 1 Univers e 25 mg 04-15 tablet by ity of tablet 00:00: 05:59 mouth [place] 00 :00 every 6 Medical (six) Branch hours for 7 days. FENTanyl PF 2020-04 No 50ug 50 mcg, Un you (SUBLIMAZE [...] dication: Hypertensi ve Emergency dicyclomine 2020-04 Yes [id number] 20mg 20 mg, Univers (BENTYL) 05-27 Intramuscu ity o f injection 02:00: lar, QID, [place] as 20 mg 00 First dose Medical on Sat Branch 03/25/21 at 2000, Until Discontinu ed, Routine iopamidol 2020-04- No [id number] 120mL 120 mL, Univers (ISOVUE 05-27 Intravenou ity o f 370-500 mL) 01:58: 01:58 s, ONCE, 1 [place] injection 00 :00 dose, On Medica l 120 mL Sat Branch 03/25/21 at 2015, Routine NaCl 0.9% 2020-04- No [id number] 1000mL at 999 Univers (NS) bolus 05-27 mL/hr, ity of infusion 01:30: 03:00 1,000 mL, [place] as 1,000 mL 00 :00 IV Medical Infusion, Branch ONCE, 1 dose, On 03/25/21 at 1930, [place] ondansetron 2020-04- No [id number] 4mg 4 mg, Slow Univers (ZOFRAN 05-27 IV Push, ity of (PF)) 01:30: 01:48 ONCE, 1 [place] injection 4 00 :00 dose, On Medi brandy mg Sat Branch 03/25/21 at 1930, [place] famotidine 2020-04- No [id number] 20mg 20 mg, Univers (PEPCID 05-27 Slow IV ity of (PF)) 01:30: 01:48 Push, [place] injection 00 :00 ONCE, 1 Medical 20 mg dose, On Branch 03/25/21 at 1930, [place] ketorolac 2020-04- No [id number] 30mg 30 mg, U nivers (TORADOL) 05-27 Slow IV ity of injection 01:30: 01:49 Push, [place] 30 mg 00 :00 ONCE, 1 Medical dose, On Branch 03/25/21 at 1930, [place] FENTanyl PF 2020-04- No [id number] 75ug 75 mcg, Univers (SUBLIMAZE 05-27 Slow IV ity o f (PF)) 01:30: 01:48 Push, [place] injection 00 :00 ONCE, 1 Medical 75 mcg dose, On Branch 03/25/21 at 1930, STAT famotidine 2020-04- No 20mg 20 mg, Univ ers (PEPCID AC) 05-22 Oral, ity of tablet 20 02:00: 01:13 ONCE, 1 [place] mg 00 :00 dose, On Medical Mon [place] 03/20/21 at 2000, [place] FENTanyl PF 2020-04- No 25ug 25 mcg, Un you (SUBLIMAZE 05-22 Slow IV ity o f (PF)) 02:00: 01:13 Push, [place] injection 00 :00 ONCE, 1 Medical 25 mcg dose, On Branch [facility] 03/20/21 at 2000, STAT diphenhydrA 2020-04- No 12.5mg 12.5 mg, Univers MINE 05-22 Slow IV ity of (BENADRYL) 02:00: 01:13 Push, [place] injection 00 :00 ONCE, 1 Medical 12.5 mg dose, On Branch [facility] 03/20/21 at 2000, STAT metoclopram 2020-04- No 10mg 10 mg, Uni vers selena HCl 05-22 Slow IV ity of (REGLAN) 02:00: 01:13 Push, [place] injection 00 :00 ONCE, 1 Medical 10 mg dose, On Branch [facility] 03/20/21 at 2000, [place] FENTanyl PF 2020-04- No 75ug 75 mcg, Un you (SUBLIMAZE 05-21 Slow IV ity o f (PF)) 23:30: 22:45 Push, [place] injection 00 :00 ONCE, 1 Medical 75 mcg dose, On Branch [facility] 03/20/21 at 1730, Routine ketorolac 2020-04- No 30mg 30 mg, Unive rs (TORADOL) 05-21 Slow IV ity of injection 23:30: 22:44 Push, [place] 30 mg 00 :00 ONCE, 1 Medical dose, On Branch [facility] 03/20/21 at 1730, Routine
membership director approving Restricted medication : MEKA HAMMONDS ondansetron 2020-04- No 4mg 4 mg, Slow Univers (ZOFRAN 05-21 IV Push, ity of (PF)) 23:30: 22:44 ONCE, 1 [place] injection 4 00 :00 dose, On Medi brandy mg [facility] Branch 03/20/21 at 1730, [place] dicyclomine 2020-04 No 20mg 20 mg, Uni vers (BENTYL) 05-21 Intramuscu ity of injection 23:30: 23:15 lar, ONCE, [place] 20 mg 00 :00 1 dose, On Medical [facility] Branch 03/20/21 at 1730, Routine iopamidol 2020-04 No 100mL 100 mL, Uni vers (ISOVUE 05-21 Intravenou ity o f 370-500 mL) 22:50: 23:15 s, ONCE, 1 [place] injection 00 :00 dose, On Medica l [address] [facility] Branch 03/20/21 at 1715, Routine ondansetron 2020-04- No ondansetro Univers 4 mg tablet 05-21 n HCl 4 mg i ty of 18:55: 00:00 tablet [place] 24 :00 Medical Branch metoclopram 2020-04 Yes [id number] 10mg Take 1 Univers selena HCl 10 2-06 tablet by ity of mg tablet 00:00: mouth [place] 00 every 6 Medical (six) Branch hours as needed for Nausea and Vomiting (N/V). dicyclomine 2020-04 Yes [id number] 20mg Take 1 Univers 20 mg 2-06 tablet by ity of tablet 00:00: mouth 4 [place] 00 (four) Medical times Branch daily. metoclopram 2020-04 Yes [id number] 10mg Take 1 Univers selnea HCl 10 2-06 tablet by ity of mg tablet 00:00: mouth [place] 00 every 6 Medical (six) Branch hours as needed for Nausea and Vomiting (N/V). dicyclomine 2020-04 Yes [id number] 20mg Take 1 Univers 20 mg 2-06 tablet by ity of tablet 00:00: mouth 4 [place] 00 (four) Medical times Branch daily. metoclopram 2020-04 Yes [id number] 10mg Take 1 Univers selena HCl 10 2-06 tablet by ity of mg tablet 00:00: mouth [place] 00 every 6 Medical (six) Branch hours as needed for Nausea and Vomiting (N/V). dicyclomine 2020-04 Yes [id number] 20mg Take 1 Univers 20 mg 2-06 tablet by ity of tablet 00:00: mouth 4 [place] 00 (four) Medical times Branch daily. metoclopram 2020-04 Yes [id number] 10mg Take 1 Univers selena HCl 10 2-06 tablet by ity of mg tablet 00:00: mouth [place] 00 every 6 Medical (six) Branch hours as needed for Nausea and Vomiting (N/V). dicyclomine 2020-04 Yes [id number] 20mg Take 1 Univers 20 mg 2-06 tablet by ity of tablet 00:00: mouth 4 00 (four) Medical times Branch daily. metoclopram 2020-04 Yes [id number] 10mg Take 1 Univers selena HCl 10 2-06 tablet by ity of mg tablet 00:00: mouth [place] 00 every 6 Medical (six) Branch hours as needed for Nausea and Vomiting (N/V). dicyclomine 2020-04 Yes [id number] 20mg Take 1 Univers 20 mg 2-06 tablet by ity of tablet 00:00: mouth 4 00 (four) Medical times Branch daily. metoclopram 2020-04 Yes [id number] 10mg Take 1 Univers selena HCl 10 2-06 tablet by ity of mg tablet 00:00: mouth [place] 00 every 6 Medical (six) Branch hours as needed for Nausea and Vomiting (N/V). dicyclomine 2020-04 Yes [id number] 20mg Take 1 Univers 20 mg 2-06 tablet by ity of tablet 00:00: mouth (four) Medical times Branch daily. metoclopram 2020-04 Yes [id number] 10mg Take 1 Univers selena HCl 10 2-06 tablet by ity of mg tablet 00:00: mouth [place] 00 every 6 Medical (six) Branch hours as needed for Nausea and Vomiting (N/V). dicyclomine 2020-04 Yes [id number] 20mg Take 1 Univers 20 mg 2-06 tablet by ity of tablet 00:00: mouth 4 [place] 00 (four) Medical times Branch daily. metoclopram 2020-04 Yes [id number] 10mg Take 1 Univers selena HCl 10 2-06 tablet by ity of mg tablet 00:00: mouth [place] 00 every 6 Medical (six) Branch hours as needed for Nausea and Vomiting (N/V). dicyclomine 2020-04 Yes [id number] 20mg Take 1 Univers 20 mg 2-06 tablet by ity of tablet 00:00: mouth 4 [place] 00 (four) Medical times Branch daily. metoclopram 2020-04 Yes [id number] 10mg Take 1 Univers selena HCl 10 2-06 tablet by ity of mg tablet 00:00: mouth [place] 00 every 6 Medical (six) Branch hours as needed for Nausea and Vomiting (N/V). dicyclomine 2020-04 Yes [id number] 20mg Take 1 Univers 20 mg 2-06 tablet by ity of tablet 00:00: mouth 4 [place] 00 (four) Medical times Branch daily. metoclopram 2020-04- No [id number] 10mg Take 1 Univers selena HCl 10 2-06 02-06 tablet by ity of mg tablet 00:00: 00:00 mouth [place] 00 :00 every 6 Medical (six) Branch hours as needed for Nausea and Vomiting (N/V). dicyclomine 2020-04- No [id number] 20mg Take 1 Univers 20 mg 2-06 02-06 tablet by ity of tablet 00:00: 00:00 mouth 4 [place] 00 :00 (four) Medical times Branch daily. famotidine 2020-04- No [id number] 20mg Take 1 Univers 20 mg 2-06 12-17 tablet by ity of tablet 00:00: 05:59 mouth at [place] 00 :00 bedtime Medical for 10 Branch days. famotidine 2020-04- No [id number] 20mg Take 1 Univers 20 mg 2-06 12-17 tablet by ity of tablet 00:00: 05:59 mouth at [place] 00 :00 bedtime Medical for 10 Branch days. famotidine 2020-04- No [id number] 20mg Take 1 Univers 20 mg 2-06 12-17 tablet by ity of tablet 00:00: 05:59 mouth at [place] 00 :00 bedtime Medical for 10 Branch days. ketorolac 2020-04- No 30mg 30 mg, Unive rs (TORADOL) 04-15 Slow IV ity of injection 02:15: 01:11 Push, [place] 30 mg 00 :00 ONCE, 1 Medical dose, On Branch [place] 02/12/21 at 2115, Routine
membership director approving Restricted medication : ERASMO GRAYSON proMETHazin 2020-04- No 25mg 25 mg, IV Univers e 04-15 Piggyback, ity of (PHENERGAN) 02:15: 01:12 ONCE, 1 [place] 25 mg in 00 :00 dose, On Medical NaCl 0.9% [place] Branch (NS) 50 mL 02/12/21 piggyback at 2115, 50 mL iopamidol 2020-04- No [id number] 120mL 120 mL, Univers (ISOVUE 002-12 Intravenou ity o f 370-500 mL) 23:30: 22:13 s, ONCE, 1 [place] injection 00 :00 dose, On Medica l 120 mL [facility] 02/12/21 at 1830, Routine morpHINE 2020-04- No 4mg 4 mg, Slow Un you injection 4 02-12 IV Push, ity of mg 23:15: 22:23 ONCE, 1 [place] 00 :00 dose, On Medical [facility] 02/12/21 at 1815, STAT famotidine 2020-04- No 20mg 20 mg, Univ ers (PEPCID 002-12 Slow IV ity of (PF)) 21:30: 20:28 Push, [place] injection 00 :00 ONCE, 1 Medical 20 mg dose, On Branch [place] 02/12/21 at 1630, [place] NaCl 0.9% 2020-04- No 1000mL at 999 Uni vers (NS) bolus 002-12 mL/hr, ity of infusion 21:30: 21:30 1,000 mL, [place] 1,000 mL 00 :00 IV Medical Infusion, Branch ONCE, 1 dose, On [place] 02/12/21 at 1630, [place] ondansetron 2020-04- No 8mg 8 mg, Slow Univers (ZOFRAN 002-12 IV Push, ity of (PF)) 21:30: 20:23 ONCE, 1 [place] injection 8 00 :00 dose, On Medi brandy mg [facility] 02/12/21 at 1630, [place] ketorolac 2020-04- No 30mg 30 mg, Unive rs (TORADOL) 0-31 10-31 Slow IV ity of injection 21:30: 20:23 Push, [place] 30 mg 00 :00 ONCE, 1 Medical dose, On Branch 02/12/21 at 1630, [place]
Fa culty member approving Restricted medication : ROSALINDA FISHER morpHINE 2020-04- No 4mg 4 mg, Slow Un you injection 4 0-31 10- IV Push, ity of mg 21:30: 20:23 ONCE, 1 [place] 00 :00 dose, On Medical [place] [facility] 02/12/21 at 1630, STAT ondansetron 2020-04 Yes [id number] 8mg Take 1 Univers 8 mg tablet 0-31 tablet by ity of 00:00: mouth [place] 00 every 8 Medical (eight) Branch hours as needed for Nausea and Vomiting (N/V). ondansetron 2020-04- No [id number] 8mg Take 1 Univers 8 mg tablet 0-31 12-06 tablet by it y of 00:00: 00:00 mouth [place] 00 :00 every 8 Medical (eight) Branch hours as needed for Nausea and Vomiting (N/V). morpHINE 2020-04 No 4mg 4 mg, Slow Un you injection 4 0-09 22- IV Push, ity of mg 07:00: 05:56 ONCE, 1 [place] 00 :00 dose, On Medical Wed Branch 01/18/21 at 0200, STAT famotidine 2020-04- No 20mg 20 mg, Univ ers (PEPCID 0-09 22- Slow IV ity of (PF)) 06:00: 05:08 Push, [place] injection 00 :00 ONCE, 1 Medical 20 mg dose, On Branch 01/18/21 at 0100, Routine maalox:diph 2020-04- No 15mL 15 mL, Uni vers enhydrAMINE 0-06 10- Oral, ity of :lidocaine 06:00: 05:08 ONCE, 1 [place] as 2 % viscous 00 :00 dose, On Medi brandy 1:1:1 Wed Branch ([facility] 01/18/21 at [facility]) 0100, oral Routine suspension 15 mL dicyclomine 2020-04 No 20mg 20 mg, Uni vers (BENTYL) 0-06 10-06 Oral, ity of tablet 20 06:00: 05:08 ONCE, 1 [place] mg 00 :00 dose, On Medical [facility] Branch 01/18/21 at 0100, Routine iopamidol 2020-04- No [id number] 120mL 120 mL, Univers (ISOVUE 0-01-18 Intravenou ity o f 370-500 mL) 04:45: 03:33 s, ONCE, 1 [place] injection 00 :00 dose, On Medica l 120 mL [facility] Branch 01/17/21 at 2345, Routine morpHINE 2020-04 No 4mg 4 mg, Slow Un you injection 4 0-01-18 IV Push, ity of mg 03:45: 02:58 ONCE, 1 [place] 00 :00 dose, On [facility] 01/17/21 at 2245, STAT ondansetron 2020-04 No 4mg 4 mg, Slow Univers (ZOFRAN 0-01-18 IV Push, ity of (PF)) 03:45: 02:59 ONCE, 1 [place] injection 4 00 :00 dose, On Medi brandy mg [facility] 01/17/21 at 2245, [place] NaCl 0.9% 2020-04 1000mL at 999 Uni vers (NS) bolus 0-06 10-06 mL/hr, ity of infusion 03:45: 06:13 1,000 mL, [place] as 1,000 mL 00 :00 IV Medical Piggyback, Branch ONCE, 1 dose, On [facility] 01/17/21 at 2245, STAT diazePAM 2 Yes 2mg Take 2 mg Un you mg tablet 9-25 by mouth. ity o f 11:25: [address] erythromyci Yes erythromyc Univers n 5 mg/gram 9-25 in 5 ity of (0.5 %) 11:25: mg/gram [place] ophthalmic 57 (0.5 %) Medica l ointment eye Branch ointment ondansetron Yes ondansetro Univers 4 mg tablet 9-25 n HCl 4 mg it y of 11:25: tablet [place] [address] Medical Branch diazePAM 2 Yes 2mg Take 2 mg Un you mg tablet 9-25 by mouth. ity o f 11:25: [place] [address] Medical Branch erythromyci Yes erythromyc Univers n 5 mg/gram 9-25 in 5 ity of (0.5 %) 11:25: mg/gram [place] ophthalmic 57 (0.5 %) Medica l ointment eye Branch ointment ondansetron Yes ondansetro Univers 4 mg tablet 9-25 n HCl 4 mg it y of 11:25: tablet [place] [address] Medical Branch diazePAM 2 Yes 2mg Take 2 mg Un you mg tablet 9-25 by mouth. ity o f 11:25: [place] [address] Medical Branch erythromyci Yes erythromyc Univers n 5 mg/gram 9-25 in 5 ity of (0.5 %) 11:25: mg/gram [place] ophthalmic 57 (0.5 %) Medica l ointment eye Branch ointment ondansetron Yes ondansetro Univers 4 mg tablet 9-25 n HCl 4 mg it y of 11:25: tablet [place] [address] Medical Branch diazePAM 2 Yes 2mg Take 2 mg Un you mg tablet 9-25 by mouth. ity o f 11:25: [place] [address] Medical Branch erythromyci Yes erythromyc Univers n 5 mg/gram 9-25 in 5 ity of (0.5 %) 11:25: mg/gram [place] ophthalmic 57 (0.5 %) Medica l ointment eye Branch ointment ondansetron Yes ondansetro Univers 4 mg tablet 9-25 n HCl 4 mg it y of 11:25: tablet [place] [address] Medical Branch diazePAM 2 Yes 2mg Take 2 mg Un you mg tablet 9-25 by mouth. ity o f 11:25: [place] [address] Medical Branch erythromyci Yes erythromyc Univers n 5 mg/gram 9-25 in 5 ity of (0.5 %) 11:25: mg/gram [place] ophthalmic 57 (0.5 %) Medica l ointment eye Branch ointment ondansetron Yes ondansetro Univers 4 mg tablet 9-25 n HCl 4 mg it y of 11:25: tablet [place] [address] Medical Branch diazePAM 2 Yes 2mg Take 2 mg Un you mg tablet 9-25 by mouth. ity o f 11:25: [address] Branch [facility] Yes erythromyc Univers n 5 mg/gram 9-25 in 5 ity of (0.5 %) 11:25: mg/gram [place] ophthalmic 57 (0.5 %) Medica l ointment eye Branch ointment ondansetron Yes ondansetro Univers 4 mg tablet 9-25 n HCl 4 mg it y of 11:25: tablet [place] [address] Medical Branch diazePAM 2 Yes 2mg Take 2 mg Un you mg tablet 9-25 by mouth. ity o f 11:25: [address] Branch [facility] Yes erythromyc Univers n 5 mg/gram 9-25 in 5 ity of (0.5 %) 11:25: mg/gram [place] ophthalmic 57 (0.5 %) Medica l ointment eye Branch ointment diazePAM 2 Yes 2mg Take 2 mg Un you mg tablet 9-25 by mouth. ity o f 11:25: [address] Yes erythromyc Univers n 5 mg/gram 9-25 in 5 ity of (0.5 %) 11:25: mg/gram [place] ophthalmic 57 (0.5 %) Medica l ointment eye Branch ointment diazePAM 2 Yes 2mg Take 2 mg Un you mg tablet 9-25 by mouth. ity o f 11:25: [address] [facility] erythromyc Univers n 5 mg/gram 9-25 in 5 ity of (0.5 %) 11:25: mg/gram [place] ophthalmic 57 (0.5 %) Medica l ointment eye Branch ointment diazePAM 2 Yes 2mg Take 2 mg Un you mg tablet 9-25 by mouth. ity o f 11:25: [address] [facility] Yes erythromyc Univers n 5 mg/gram 9-25 in 5 ity of (0.5 %) 11:25: mg/gram [place] ophthalmic 57 (0.5 %) Medica l ointment eye Branch ointment diazePAM 2 Yes 2mg Take 2 mg Un you mg tablet 9-25 by mouth. ity o f 11:25: [place] 57 Medical Branch erythromyci Yes erythromyc Univers n 5 mg/gram 9-25 in 5 ity of (0.5 %) 11:25: mg/gram [place] ophthalmic 57 (0.5 %) Medica l ointment eye Branch ointment albuterol Yes [id number] 2{puff} Inhale 2 Univers 90 9-25 Puffs ity of mcg/actuati 00:00: every 6 [place] as on inhaler 00 (six) Medical hours as Branch needed for Wheezing or Shortness of Breath. albuterol Yes [id number] 2{puff} Inhale 2 Univers 90 9-25 Puffs ity of mcg/actuati 00:00: every 6 [place] on inhaler 00 (six) Medical hours as Branch needed for Wheezing or Shortness of Breath. albuterol Yes [id number] 2{puff} Inhale 2 Univers 90 9-25 Puffs ity of mcg/actuati 00:00: every 6 [place] on inhaler 00 (six) Medical hours as Branch needed for Wheezing or Shortness of Breath. albuterol Yes [id number] 2{puff} Inhale 2 Univers 90 9-25 Puffs ity of mcg/actuati 00:00: every 6 [place] on inhaler 00 (six) Medical hours as Branch needed for Wheezing or Shortness of Breath. albuterol Yes [id number] 2{puff} Inhale 2 Univers 90 9-25 Puffs ity of mcg/actuati 00:00: every 6 [place] as on inhaler 00 (six) Medical hours as Branch needed for Wheezing or Shortness of Breath. albuterol Yes [id number] 2{puff} Inhale 2 Univers 90 9-25 Puffs ity of mcg/actuati 00:00: every 6 [place] on inhaler 00 (six) Medical hours as Branch needed for Wheezing or Shortness of Breath. albuterol Yes [id number] 2{puff} Inhale 2 Univers 90 9-25 Puffs ity of mcg/actuati 00:00: every 6 [place] as on inhaler 00 (six) Medical hours as Branch needed for Wheezing or Shortness of Breath. albuterol Yes [id number] 2{puff} Inhale 2 Univers 90 9-25 Puffs ity of mcg/actuati 00:00: every 6 [place] as on inhaler 00 (six) Medical hours as Branch needed for Wheezing or Shortness of Breath. albuterol Yes [id number] 2{puff} Inhale 2 Univers 90 9-25 Puffs ity of mcg/actuati 00:00: every 6 [place] as on inhaler 00 (six) Medical hours as Branch needed for Wheezing or Shortness of Breath. albuterol Yes [id number] 2{puff} Inhale 2 Univers 90 9-25 Puffs ity of mcg/actuati 00:00: every 6 [place] as on inhaler 00 (six) Medical hours as Branch needed for Wheezing or Shortness of Breath. albuterol Yes [id number] 2{puff} Inhale 2 Univers 90 9-25 Puffs ity of mcg/actuati 00:00: every 6 [place] on inhaler 00 (six) Medical hours as Branch needed for Wheezing or Shortness of Breath. albuterol Yes [id number] 2{puff} Inhale 2 Univers 90 9-25 Puffs ity of mcg/actuati 00:00: every 6 [place] on inhaler 00 (six) Medical hours as Branch needed for Wheezing or Shortness of Breath. albuterol Yes [id number] 2{puff} Inhale 2 Univers 90 9-25 Puffs ity of mcg/actuati 00:00: every 6 [place] on inhaler 00 (six) Medical hours as Branch needed for Wheezing or Shortness of Breath. albuterol Yes [id number] 2{puff} Inhale 2 Univers 90 9-25 Puffs ity of mcg/actuati 00:00: every 6 [place] as on inhaler 00 (six) Medical hours as Branch needed for Wheezing or Shortness of Breath. albuterol Yes [id number] 2{puff} Inhale 2 Univers 90 9-25 Puffs ity of mcg/actuati 00:00: every 6 [place] on inhaler 00 (six) Medical hours as Branch needed for Wheezing or Shortness of Breath. albuterol Yes [id number] 2{puff} Inhale 2 Univers 90 9-25 Puffs ity of mcg/actuati 00:00: every 6 [place] on inhaler 00 (six) Medical hours as Branch needed for Wheezing or Shortness of Breath. albuterol Yes [id number] 2{puff} Inhale 2 Univers 90 9-25 Puffs ity of mcg/actuati 00:00: every 6 [place] on inhaler 00 (six) Medical hours as Branch needed for Wheezing or Shortness of Breath. albuterol Yes [id number] 2{puff} Inhale 2 Univers 90 9-25 Puffs ity of mcg/actuati 00:00: every 6 [place] on inhaler 00 (six) Medical hours as Branch needed for Wheezing or Shortness of Breath. albuterol Yes [id number] 2{puff} Inhale 2 Univers 90 9-25 Puffs ity of mcg/actuati 00:00: every 6 [place] on inhaler 00 (six) Medical hours as Branch needed for Wheezing or Shortness of Breath. albuterol Yes [id number] 2{puff} Inhale 2 Univers 90 9-25 Puffs ity of mcg/actuati 00:00: every 6 [place] on inhaler 00 (six) Medical hours as Branch needed for Wheezing or Shortness of Breath. albuterol Yes [id number] 2{puff} Inhale 2 Univers 90 9-25 Puffs ity of mcg/actuati 00:00: every 6 [place] on inhaler 00 (six) Medical hours as Branch needed for Wheezing or Shortness of Breath. albuterol Yes [id number] 2{puff} Inhale 2 Univers 90 9-25 Puffs ity of mcg/actuati 00:00: every 6 [place] on inhaler 00 (six) Medical hours as Branch needed for Wheezing or Shortness of Breath. albuterol Yes [id number] 2{puff} Inhale 2 Univers 90 9-25 Puffs ity of mcg/actuati 00:00: every 6 [place] on inhaler 00 (six) Medical hours as Branch needed for Wheezing or Shortness of Breath. albuterol 2021- No [id number] 2{puff} Inhale 2 Univers 90 925 05-20 Puffs ity of mcg/actuati 00:00: 00:00 every 6 [place] on inhaler 00 :00 (six) Medical hours as Branch needed for Wheezing or Shortness of Breath. promethazin 2020- No [id number] 5mL Take 5 mL Univers e-dextromet -25 10-03 by mouth 4 i ty of horphan 00:00: 04:59 (four) [place] 6.25-15 00 :00 times Medical mg/5 mL daily as Branch syrup needed for Cough or Cold symptoms for up to 7 days. promethazin 2020- No [id number] 5mL Take 5 mL Univers e-dextromet 9-25 10-03 by mouth 4 i ty of horphan 00:00: 04:59 (four) [place] 6.25-15 00 :00 times Medical mg/5 mL daily as Branch syrup needed for Cough or Cold symptoms for up to 7 days. promethazin 2020- No [id number] 5mL Take 5 mL Univers e-dextromet -25 10-03 by mouth 4 i ty of horphan 00:00: 04:59 (four) [place] 6.25-15 00 :00 times Medical mg/5 mL daily as Branch syrup needed for Cough or Cold symptoms for up to 7 days. tiZANidine Yes Univers 2 mg tablet 9- ity of 00:00: [facility] tiZANidine Yes Univers 2 mg tablet 9- ity of 00:00: [facility] tiZANidine Yes Univers 2 mg tablet 9-23 ity of 00:00: [facility] tiZANidine Yes Univers 2 mg tablet 9- ity of 00:00: [facility] tiZANidine Yes Univers 2 mg tablet 9- ity of 00:00: [facility] tiZANidine Yes Univers 2 mg tablet 9- ity of 00:00: [facility] tiZANidine 2021-0 Yes Univers 2 mg tablet 9-23 ity of 00:00: [place] [facility] tiZANidine 2020-0 Yes Univers 2 mg tablet 9-23 ity of 00:00: [place] [facility] tiZANidine 2020-0 Yes Univers 2 mg tablet 9-23 ity of 00:00: [place] [facility] tiZANidine 2020-0 Yes Univers 2 mg tablet 9- ity of 00:00: [place] [facility] tiZANidine 2020-0 Yes Univers 2 mg tablet 9- ity of 00:00: [place] [facility] tiZANidine 2020-0 Yes Univers 2 mg tablet 9- ity of 00:00: [place] [facility] tiZANidine 2020-0 Yes Univers 2 mg tablet 9- ity of 00:00: [place] [facility] tiZANidine 2020-0 Yes Univers 2 mg tablet 9- ity of 00:00: [place] [facility] tiZANidine 2020-0 Yes Univers 2 mg tablet 9- ity of 00:00: [place] [facility] tiZANidine 2020-0 Yes Univers 2 mg tablet 9- ity of 00:00: [place] [facility] tiZANidine 2020-0 Yes Univers 2 mg tablet 9- ity of 00:00: [place] [facility] tiZANidine 2020-0 Yes Univers 2 mg tablet 9- ity of 00:00: [place] [facility] tiZANidine 2020-0 Yes Univers 2 mg tablet 9- ity of 00:00: [place] [facility] tiZANidine 2020-0 Yes Univers 2 mg tablet 9-23 ity of 00:00: [place] [facility] tiZANidine 2020-0 Yes Univers 2 mg tablet 9-23 ity of 00:00: [place] [facility] tiZANidine 2020-0 Yes Univers 2 mg tablet 9-23 ity of 00:00: [place] [facility] tiZANidine 2020-0 Yes Univers 2 mg tablet 9-23 ity of 00:00: [place] [facility] tiZANidine 2020-0 Yes Univers 2 mg tablet 9-23 ity of 00:00: [place] [facility] tiZANidine 2020-0 Yes Univers 2 mg tablet 9-23 ity of 00:00: [place] 00 Medical Branch tiZANidine 2021-0 Yes 4mg Take 4 mg Un you 2 mg tablet 9-23 by mouth 2 it y of 00:00: (two) [place] 00 times Medical daily. Branch tiZANidine 2021-0 Yes 4mg Take 4 mg Un you 2 mg tablet 9-23 by mouth 2 it y of 00:00: (two) [place] 00 times Medical daily. Branch tiZANidine 2021-0 Yes 4mg Take 4 mg Un you 2 mg tablet 9-23 by mouth 2 it y of 00:00: (two) [place] 00 times Medical daily. Branch tiZANidine 2021-0 Yes 4mg Take 4 mg Un you 2 mg tablet 9-23 by mouth 2 it y of 00:00: (two) [place] 00 times Medical daily. Branch tiZANidine 2021-0 Yes 4mg Take 4 mg Un you 2 mg tablet 9-23 by mouth 2 it y of 00:00: (two) [place] 00 times Medical daily. Branch tiZANidine 1-0 Yes 4mg Take 4 mg Un you 2 mg tablet 9-23 by mouth 2 it y of 00:00: (two) [place] 00 times Medical daily. Branch tiZANidine 2021-0 Yes 4mg Take 4 mg Un you 2 mg tablet 9-23 by mouth 2 it y of 00:00: (two) [place] 00 times Medical daily. Branch tiZANidine 2021-0 Yes 4mg Take 4 mg Un you 2 mg tablet 9-23 by mouth 2 it y of 00:00: (two) [place] 00 times Medical daily. Branch tiZANidine 1-0 Yes 4mg Take 4 mg Un you 2 mg tablet 9-23 by mouth 2 it y of 00:00: (two) [place] 00 times Medical daily. Branch tiZANidine 2021-0 Yes 4mg Take 4 mg Un you 2 mg tablet 9-23 by mouth 2 it y of 00:00: (two) [place] 00 times Medical daily. [place] ketorolac 2020- No 30mg 30 mg, Unive [...] On Branch 12/30/20 at 1800, [place]
Fa culty member approving [...] brandy 1:1:1 Fri Branch ([facility] 12/30/20 at [facility]) 1645, oral Routine suspension 15 mL famotidine No 20mg 20 mg, Univ ers (PEPCID 12-30 Slow IV ity of (PF)) 21:45: 20:37 Push, [place] injection 00 :00 ONCE, 1 Medical 20 mg dose, On Branch 12/30/20 at 1645, Routine maalox:diph 2020- No 15mL 15 mL, Uni vers enhydrAMINE 12-30 Oral, ity of :lidocaine 21:45: 20:37 ONCE, 1 [place] as 2 % viscous 00 :00 dose, On Medi brandy 1:1:1 Fri Branch (FIRST[facility]MOUT 12/30/20 at [facility]) 1645, oral Routine suspension 15 mL famotidine 2020- No 20mg 20 mg, Univ ers (PEPCID 12-30 Slow IV ity of (PF)) 21:45: 20:37 Push, [place] injection 00 :00 ONCE, 1 Medical 20 mg dose, On Branch 12/30/20 at 1645, Routine iopamidol 0 2020- No [id number] 80mL 80 mL, Univers (ISOVUE 12-30 Intravenou ity o f 370-500 mL) 20:00: 18:48 s, ONCE, 1 [place] injection 00 :00 dose, On Medica l 80 mL Fri Branch 12/30/20 at 1500, Routine iopamidol 2020- No [id number] 80mL 80 mL, Univers (ISOVUE 12-30 Intravenou [...] as 1,000 mL 00 :00 IV Medical [place] ONCE, 1 dose, On Sat12/30/20 at 1430, [...] dose, On Medi brandy mg Sat Branch 12/30/20 at 1430, [place] NaCl 0.9% 2020- No 1000mL at 999 Uni vers (NS) bolus 12-30 mL/hr, ity of infusion 19:30: 20:38 1,000 mL, [place] as 1,000 mL 00 :00 IV [place] ONCE, 1 dose, On Sat12/30/20 at 1430, STAT traZODone 2020-0 Yes 100mg Take 100 Uni vers 100 mg 9-17 mg by ity of tablet 10:15: mouth at [place] [address] bedtime. [facility] Branch traZODone 2020-0 Yes 100mg Take 100 Uni vers 100 mg 9-17 mg by ity of tablet 10:15: mouth at [place] [address] bedtime. [facility] Branch traZODone 2020-0 Yes 100mg Take 100 Uni vers 100 mg 9-17 mg by ity of tablet 10:15: mouth at [place] [address] bedtime. [facility] Branch traZODone 2020-0 Yes 100mg Take 100 Uni vers 100 mg 9-17 mg by ity of tablet 10:15: mouth at [place] [address] bedtime. [facility] traZODone 2020-0 Yes 100mg Take 100 Uni vers 100 mg 9-17 mg by ity of tablet 10:15: mouth at [place] [address] bedtime. Medical Branch traZODone 0 Yes 100mg Take 100 Uni vers 100 mg 9-17 mg by ity of tablet 10:15: mouth at [place] [address] bedtime. Medical Branch traZODone 0 Yes 100mg Take 100 Uni vers 100 mg 9-17 mg by ity of tablet 10:15: mouth at [place] [address] bedtime. Medical Branch traZODone 0 Yes 100mg Take 100 Uni vers 100 mg 9-17 mg by ity of tablet 10:15: mouth at [place] [address] bedtime. Medical Branch traZODone 0 Yes 100mg Take 100 Uni vers 100 mg 9-17 mg by ity of tablet 10:15: mouth at [place] [address] bedtime. Medical Branch traZODone 0 Yes 100mg Take 100 Uni vers 100 mg 9-17 mg by ity of tablet 10:15: mouth at [place] [address] bedtime. Medical Branch traZODone Yes 100mg Take 100 Uni vers 100 mg 9-17 mg by ity of tablet 10:15: mouth at [place] [address] bedtime. Medical Branch traZODone 0 Yes 100mg Take 100 Uni vers 100 mg 9-17 mg by ity of tablet 10:15: mouth at [place] [address] bedtime. Medical Branch traZODone 0 Yes 100mg Take 100 Uni vers 100 mg 9-17 mg by ity of tablet 10:15: mouth at [place] [address] bedtime. Medical Branch traZODone 0 Yes 100mg Take 100 Uni vers 100 mg 9-17 mg by ity of tablet 10:15: mouth at [place] [address] bedtime. Medical Branch traZODone 0 Yes 100mg Take 100 Uni vers 100 mg 9-17 mg by ity of tablet 10:15: mouth at [place] [address] bedtime. Medical Branch traZODone 0 Yes 100mg Take 100 Uni vers 100 mg 9-17 mg by ity of tablet 10:15: mouth at [place] [address] bedtime. Medical Branch dicyclomine 0 Yes [id number] 20mg Take 1 Univers 20 mg 9-17 tablet by ity of tablet 00:00: mouth [place] 00 every 6 Medical (six) Branch hours as needed for Abdominal pain. dicyclomine 0 Yes [id number] 20mg Take 1 Univers 20 mg 9-17 tablet by ity of tablet 00:00: mouth [place] 00 every 6 Medical (six) Branch hours as needed for Abdominal pain. dicyclomine 1-0 Yes [id number] 20mg Take 1 Univers 20 mg 9-17 tablet by ity of tablet 00:00: mouth [place] 00 every 6 Medical (six) Branch hours as needed for Abdominal pain. dicyclomine 2020-0 Yes [id number] 20mg Take 1 Univers 20 mg 9-17 tablet by ity of tablet 00:00: mouth [place] 00 every 6 Medical (six) Branch hours as needed for Abdominal pain. dicyclomine 2020-0 Yes [id number] 20mg Take 1 Univers 20 mg 9-17 tablet by ity of tablet 00:00: mouth [place] 00 every 6 Medical (six) Branch hours as needed for Abdominal pain. dicyclomine 2020-0 Yes [id number] 20mg Take 1 Univers 20 mg 9-17 tablet by ity of tablet 00:00: mouth [place] 00 every 6 Medical (six) Branch hours as needed for Abdominal pain. dicyclomine 2020-0 Yes [id number] 20mg Take 1 Univers 20 mg 9-17 tablet by ity of tablet 00:00: mouth [place] 00 every 6 Medical (six) Branch hours as needed for Abdominal pain. dicyclomine 2020-0 Yes [id number] 20mg Take 1 Univers 20 mg 9-17 tablet by ity of tablet 00:00: mouth [place] 00 every 6 Medical (six) Branch hours as needed for Abdominal pain. dicyclomine 2020-0 Yes [id number] 20mg Take 1 Univers 20 mg 9-17 tablet by ity of tablet 00:00: mouth [place] 00 every 6 Medical (six) Branch hours as needed for Abdominal pain. dicyclomine 2020-0 Yes [id number] 20mg Take 1 Univers 20 mg 9-17 tablet by ity of tablet 00:00: mouth [place] 00 every 6 Medical (six) Branch hours as needed for Abdominal pain. dicyclomine 1-0 Yes [id number] 20mg Take 1 Univers 20 mg 9-17 tablet by ity of tablet 00:00: mouth [place] 00 every 6 Medical (six) Branch hours as needed for Abdominal pain. dicyclomine 2020-0 Yes [id number] 20mg Take 1 Univers 20 mg 9-17 tablet by ity of tablet 00:00: mouth [place] 00 every 6 Medical (six) Branch hours as needed for Abdominal pain. dicyclomine 2020-0 Yes [id number] 20mg Take 1 Univers 20 mg 9-17 tablet by ity of tablet 00:00: mouth [place] 00 every 6 Medical (six) Branch hours as needed for Abdominal pain. dicyclomine 2020-0 Yes [id number] 20mg Take 1 Univers 20 mg 9-17 tablet by ity of tablet 00:00: mouth [place] 00 every 6 Medical (six) Branch hours as needed for Abdominal pain. dicyclomine 2020-0 Yes [id number] 20mg Take 1 Univers 20 mg 9-17 tablet by ity of tablet 00:00: mouth [place] 00 every 6 Medical (six) Branch hours as needed for Abdominal pain. dicyclomine 0 Yes [id number] 20mg Take 1 Univers 20 mg 9-17 tablet by ity of tablet 00:00: mouth [place] 00 every 6 Medical (six) Branch hours as needed for Abdominal pain. dicyclomine 0 Yes [id number] 20mg Take 1 Univers 20 mg 9-17 tablet by ity of tablet 00:00: mouth [place] 00 every 6 Medical (six) Branch hours as needed for Abdominal pain. dicyclomine 0 2- No [id number] 20mg Take 1 Univers 20 mg 9-17 02-06 tablet by ity of tablet 00:00: 00:00 mouth [place] 00 :00 every 6 Medical (six) Branch hours as needed for Abdominal pain. traZODone 0 Yes 100mg Take 100 Uni [...] (two) Medical times Branch daily. cephALEXin 2021-0 202- No [id number] 500mg Take 1 Univers 500 mg 12-16 capsule by ity of capsule 00:00: 04:59 mouth 4 [place] 00 :00 (four) Medical times Branch daily for 7 days. cephALEXin 2021-0 202- No [id number] 500mg Take 1 Univers 500 mg -06 21-11 capsule by ity of capsule 00:00: 04:59 mouth 4 [place] 00 :00 (four) Medical times Branch daily for 7 days. hydrOXYzine 2021-0 Yes Univer s 25 mg - ity of tablet 00:00: [place] [facility] SERTraline 2020-0 Yes Univers 25 mg 9- ity of tablet 00:00: [place] [facility] hydrOXYzine 2020-0 Yes Univer s 25 mg 9 ity of tablet 00:00: [place] [facility] SERTraline 2020-0 Yes Univers 25 mg 9 ity of tablet 00:00: [place] [facility] hydrOXYzine 2020-0 Yes Univer s 25 mg 9 ity of tablet 00:00: [place] [facility] SERTraline 2020-0 Yes Univers 25 mg 9 ity of tablet 00:00: [place] [facility] hydrOXYzine 2020-0 Yes Univer s 25 mg 9 ity of tablet 00:00: [place] [facility] SERTraline 2020-0 Yes Univers 25 mg - ity of tablet 00:00: [place] [facility] hydrOXYzine 2020-0 Yes Univer s 25 mg 9 ity of tablet 00:00: [place] [facility] SERTraline 2020-0 Yes Univers 25 mg 9- ity of tablet 00:00: [place] [facility] hydrOXYzine 2020-0 Yes Univer s 25 mg 9- ity of tablet 00:00: [place] [address] Medical Branch SERTraline 2020-0 Yes [facility] 25 mg 9- ity of tablet 00:00: [place] [facility] hydrOXYzine 2020-0 Yes Univer s 25 mg 9- ity of tablet 00:00: [place] [facility] SERTraline 2020-0 Yes [facility] 25 mg 9- ity of tablet 00:00: [place] [facility] hydrOXYzine 2020-0 Yes Univer s 25 mg 9- ity of tablet 00:00: [place] [address] Medical Branch SERTraline 2020-0 Yes [facility] 25 mg 9- ity of tablet 00:00: [place] [facility] hydrOXYzine 2020-0 Yes Univer s 25 mg 9- ity of tablet 00:00: [place] [address] Medical Branch SERTraline 2020-0 Yes [facility] 25 mg 9- ity of tablet 00:00: [place] [facility] hydrOXYzine 2020-0 Yes Univer s 25 mg 9- ity of tablet 00:00: [place] [facility] SERTraline 2020-0 Yes [facility] 25 mg 9- ity of tablet 00:00: [place] [facility] hydrOXYzine 2020-0 Yes Univer s 25 mg 9- ity of tablet 00:00: [place] [facility] SERTraline 2020-0 Yes [facility] 25 mg 9- ity of tablet 00:00: [place] [facility] hydrOXYzine 2020-0 Yes Univer s 25 mg 9- ity of tablet 00:00: [place] [facility] SERTraline 2020-0 Yes [facility] 25 mg 9- ity of tablet 00:00: [place] [facility] hydrOXYzine 2020-0 Yes Univer s 25 mg 9- ity of tablet 00:00: [place] [facility] Branch SERTraline 2020-0 Yes Univers 25 mg 9- ity of tablet 00:00: [place] [facility] hydrOXYzine 2020-0 Yes Univer s 25 mg 9- ity of tablet 00:00: [place] [facility] Branch SERTraline 2020-0 Yes Univers 25 mg 9- ity of tablet 00:00: [place] [facility] hydrOXYzine 2020-0 Yes Univer s 25 mg 9- ity of tablet 00:00: [place] [facility] Branch SERTraline 2020-0 Yes Univers 25 mg 9- ity of tablet 00:00: [place] [facility] Branch SERTraline 2020-0 Yes [facility] 25 mg 9- ity of tablet 00:00: [place] [facility] Branch SERTraline 2020-0 Yes [facility] 25 mg 9- ity of tablet 00:00: [place] [facility] Branch SERTraline 2020-0 Yes [facility] 25 mg 9- ity of tablet 00:00: [place] [facility] SERTraline 2020-0 Yes [facility] 25 mg 9- ity of tablet 00:00: [place] [facility] SERTraline 2020-0 Yes [facility] 25 mg 9- ity of tablet 00:00: [place] [facility] Branch SERTraline 2020-0 Yes [facility] 25 mg 9- ity of tablet 00:00: [place] [facility] SERTraline 2020-0 Yes [facility] 25 mg 9- ity of tablet 00:00: [place] [facility] SERTraline 2020-0 Yes [facility] 25 mg 9- ity of tablet 00:00: [place] [facility] SERTraline 2021- No Univer s 25 mg 12-14 05-20 ity of tablet 00:00: 00:00 [place] 00 :00 [facility] Branch hydrOXYzine 2021- No Unive rs 25 mg 12-14 02-06 ity of tablet 00:00: 00:00 [place] 00 :00 Medical Branch morpHINE 2020- No 4mg 4 mg, Slow Un you injection 4 12-06 IV Push, ity of mg 00:00: 23:00 ONCE, 1 [place] 00 :00 dose, [facility] Medical 12/05/20 at Branch 1900, STAT dicyclomine 2020- No 20mg 20 mg, Uni vers (BENTYL) 12-06 Intramuscu ity of injection 00:00: 23:00 [place], ONCE, [place] 20 mg 00 :00 1 dose, [facility] 12/05/20 at 1900, Routine iopamidol 2020- No [id number] 120mL 120 mL, Univers (ISOVUE 12-05 Intravenou ity o f 370-500 mL) 22:30: 21:20 s, ONCE, 1 [place] injection 00 :00 dose, [facility] Medic al 120 mL 12/05/20 at Branch 1730, Routine famotidine No 20mg 20 mg, Univ ers (PEPCID 12-05 Slow IV ity of (PF)) 22:15: 22:14 Push, [place] injection 00 :00 ONCE, 1 Medical 20 mg dose, [facility] 12/05/20 at 1715, [place] maalox:diph No 15mL 15 mL, Uni vers enhydrAMINE 12-05 Oral, ity of :lidocaine 22:15: 22:13 ONCE, 1 [place] 2 % viscous 00 :00 dose, [facility] Med ical 1:1:1 12/05/20 at [place] (FIRST-MOUT 1715, HWASH BLM) Routine oral suspension 15 mL NaCl 0.9% 2020- No 1000mL at 999 Uni vers (NS) bolus 12-05 mL/hr, ity of infusion 22:00: 23:51 1,000 mL, [place] 1,000 mL 00 :00 IV Medical Piggyback, [place] ONCE, 1 dose, 12/05/20 at 1700, STAT ondansetron 2020- No 4mg 4 mg, Slow Univers (ZOFRAN 12-05 IV Push, ity of (PF)) 22:00: 22:13 ONCE, 1 [place] injection 4 00 :00 dose, Mon Med ical mg 12/05/20 at Branch 1700, [place] morpHINE 2020- No 4mg 4 mg, Slow Un you injection 4 12-05 IV Push, ity of mg 22:00: 22:15 ONCE, 1 [place] 00 :00 dose, Mon Medical 12/05/20 at Branch 1700, STAT ondansetron Yes [id number] 4mg Take 1 Univers 4 mg 8-23 tablet by ity of disintegrat 00:00: mouth [place] ing tablet 00 every 8 Medica l (eight) Branch hours as needed for Nausea and Vomiting (N/V). ondansetron 2020-0 Yes [id number] 4mg Take 1 Univers 4 mg 8-23 tablet by ity of disintegrat 00:00: mouth [place] ing tablet 00 every 8 Medica l (eight) Branch hours as needed for Nausea and Vomiting (N/V). ondansetron 2020-0 Yes [id number] 4mg Take 1 Univers 4 mg 8-23 tablet by ity of disintegrat 00:00: mouth [place] ing tablet 00 every 8 Medica l (eight) Branch hours as needed for Nausea and Vomiting (N/V). ondansetron 2020-0 Yes [id number] 4mg Take 1 Univers 4 mg 8-23 tablet by ity of disintegrat 00:00: mouth [place] ing tablet 00 every 8 Medica l (eight) Branch hours as needed for Nausea and Vomiting (N/V). ondansetron 2020-0 Yes [id number] 4mg Take 1 Univers 4 mg 8-23 tablet by ity of disintegrat 00:00: mouth [place] ing tablet 00 every 8 Medica l (eight) Branch hours as needed for Nausea and Vomiting (N/V). ondansetron 2020-0 Yes [id number] 4mg Take 1 Univers 4 mg 8-23 tablet by ity of disintegrat 00:00: mouth [place] ing tablet 00 every 8 Medica l (eight) Branch hours as needed for Nausea and Vomiting (N/V). ondansetron 2020-0 Yes [id number] 4mg Take 1 Univers 4 mg 8-23 tablet by ity of disintegrat 00:00: mouth [place] ing tablet 00 every 8 Medica l (eight) Branch hours as needed for Nausea and Vomiting (N/V). ondansetron 2020-0 Yes [id number] 4mg Take 1 Univers 4 mg 8-23 tablet by ity of disintegrat 00:00: mouth [place] ing tablet 00 every 8 Medica l (eight) Branch hours as needed for Nausea and Vomiting (N/V). ondansetron 2020-0 Yes [id number] 4mg Take 1 Univers 4 mg 8-23 tablet by ity of disintegrat 00:00: mouth [place] ing tablet 00 every 8 Medica l (eight) Branch hours as needed for Nausea and Vomiting (N/V). ondansetron 2020-0 Yes [id number] 4mg Take 1 Univers 4 mg 8-23 tablet by ity of disintegrat 00:00: mouth [place] ing tablet 00 every 8 Medica l (eight) Branch hours as needed for Nausea and Vomiting (N/V). ondansetron 2020-0 Yes [id number] 4mg Take 1 Univers 4 mg 8-23 tablet by ity of disintegrat 00:00: mouth [place] ing tablet 00 every 8 Medica l (eight) Branch hours as needed for Nausea and Vomiting (N/V). ondansetron 2020-0 Yes [id number] 4mg Take 1 Univers 4 mg 8-23 tablet by ity of disintegrat 00:00: mouth [place] ing tablet 00 every 8 Medica l (eight) Branch hours as needed for Nausea and Vomiting (N/V). ondansetron 2020-0 Yes [id number] 4mg Take 1 Univers 4 mg 8-23 tablet by ity of disintegrat 00:00: mouth [place] ing tablet 00 every 8 Medica l (eight) Branch hours as needed for Nausea and Vomiting (N/V). ondansetron 2020-0 Yes [id number] 4mg Take 1 Univers 4 mg 8-23 tablet by ity of disintegrat 00:00: mouth [place] ing tablet 00 every 8 Medica l (eight) Branch hours as needed for Nausea and Vomiting (N/V). ondansetron 2020-0 Yes [id number] 4mg Take 1 Univers 4 mg 8-23 tablet by ity of disintegrat 00:00: mouth [place] ing tablet 00 every 8 Medica l (eight) Branch hours as needed for Nausea and Vomiting (N/V). ondansetron 2020-0 Yes [id number] 4mg Take 1 Univers 4 mg 8-23 tablet by ity of disintegrat 00:00: mouth [place] ing tablet 00 every 8 Medica l (eight) Branch hours as needed for Nausea and Vomiting (N/V). ondansetron 2020-0 Yes [id number] 4mg Take 1 Univers 4 mg 8-23 tablet by ity of disintegrat 00:00: mouth [place] ing tablet 00 every 8 Medica l (eight) Branch hours as needed for Nausea and Vomiting (N/V). ondansetron 2020-0 Yes [id number] 4mg Take 1 Univers 4 mg 8-23 tablet by ity of disintegrat 00:00: mouth [place] ing tablet 00 every 8 Medica l (eight) Branch hours as needed for Nausea and Vomiting (N/V). ondansetron 2020-0 Yes [id number] 4mg Take 1 Univers 4 mg 8-23 tablet by ity of disintegrat 00:00: mouth [place] ing tablet 00 every 8 Medica l (eight) Branch hours as needed for Nausea and Vomiting (N/V). ondansetron 2020-0 Yes [id number] 4mg Take 1 Univers 4 mg 8-23 tablet by ity of disintegrat 00:00: mouth [place] ing tablet 00 every 8 Medica l (eight) Branch hours as needed for Nausea and Vomiting (N/V). ondansetron 2020-0 Yes [id number] 4mg Take 1 Univers 4 mg 8-23 tablet by ity of disintegrat 00:00: mouth [place] ing tablet 00 every 8 Medica l (eight) Branch hours as needed for Nausea and Vomiting (N/V). ondansetron 2020-0 Yes [id number] 4mg Take 1 Univers 4 mg 8-23 tablet by ity of disintegrat 00:00: mouth [place] ing tablet 00 every 8 Medica l (eight) Branch hours as needed for Nausea and Vomiting (N/V). ondansetron Yes [id number] 4mg Take 1 Univers 4 mg 8-23 tablet by ity of disintegrat 00:00: mouth [place] ing tablet 00 every 8 Medica l (eight) Branch hours as needed for Nausea and Vomiting (N/V). ondansetron Yes [id number] 4mg Take 1 Univers 4 mg 8-23 tablet by ity of disintegrat 00:00: mouth [place] ing tablet 00 every 8 Medica l (eight) Branch hours as needed for Nausea and Vomiting (N/V). ondansetron 2021- No [id number] 4mg Take 1 Univers 4 mg 8-23 02-06 tablet by ity of disintegrat 00:00: 00:00 [place] tablet 00 :00 every 8 Medica l (eight) Branch hours as needed for Nausea and Vomiting (N/V). dicyclomine 2020- No [id number] 20mg Take 1 Univers 20 mg 8-23 08-31 tablet by ity of tablet 00:00: 04:59 mouth 4 [place] 00 :00 (four) Medical times Branch daily for 7 days. fenofibrate Yes 134mg 134 mg, Un you micronized 7-01 Oral, ity of (LOFIBRA) 14:00: DAILY, [place] capsule 134 00 First dose Me dical mg on [place] Branch 10/13/20 at 0900, Until Discontinu ed, Routine traZODone Yes 100mg Take 100 Uni vers 100 mg 7-01 mg by ity of tablet 01:44: mouth at [place] [address] bedtime. Medical Branch losartan 0 Yes 100mg [...] by ity of tablet 01:44: mouth at [place] 06 bedtime. Medical Branch losartan 2020-0 Yes 100mg Take 100 Univ ers 100 mg 7-01 mg by ity of tablet 01:44: mouth [place] 06 daily. Medical Branch gabapentin 0 Yes 300mg Take 300 Un you 300 mg 7-01 mg by ity of capsule 01:44: mouth 2 [place] 06 (two) Medical times [place] daily. HYDROcodone Yes 1{tbl} 1 tablet, Univers -acetaminop 7-01 Oral, BID, it y of hen (NORCO 01:00: First dose [place] 5) 5-325 mg 00 on Sat Medica l tablet 1 10/12/20 at [facility] h tablet 1999, Until Discontinu ed, [...] ONCE, 1 [place] 00 :[place] dose, Sat Medical 10/12/20 at Branch 1245, Routine lipase-prot 0 Yes 3{capsu 3 capsule, Univers ease-amylas 10-12 le} Oral, TID ity of e (CREON) 17:00: MEALS, [place] 12,000-38,0 00 First dose Me dical 00 -60,000 on Sat Branch unit 10/12/20 at capsule 3 1200, capsule Until Discontinu ed, Routine losartan Yes 100mg 100 mg, Unive rs (COZAAR) 10-12 Oral, ity of tablet 100 14:00: DAILY, [place] mg 00 First dose Medical on [facility] Branch 10/12/20 at 0900, Until Discontinu ed, Routine ursodioL 0 Yes 250mg 250 mg, Unive rs (EUGENE) 10-12 Oral, BID, ity of tablet 250 13:00: First dose [place] mg 00 on Sat Medical 10/12/20 at Branch 0800, Until Discontinu ed, Routine heparin 2020-0 Yes 5000U 5,000 Univers (porcine) 10-12 Units, ity of injection 13:00: [place] 5,000 Units 00 us, Q12H, Med ical First dose Branch on Sat10/12/20 at 0800, Until Discontinu ed, Routine traZODone Yes 100mg 100 mg, Univ ers (DESYREL) 6-30 Oral, QHS, ity of tablet 100 03:00: First dose [place] mg 00 on [facility] 10/11/20 at Branch 2200, Until Discontinu ed, Routine gabapentin Yes 300mg 300 mg, Uni vers (NEURONTIN) 6-30 Oral, BID, it y of capsule 300 03:00: First dose [place] mg 00 on Sat [facility] 10/11/20 at Branch 2200, Until Discontinu ed, Routine ondansetron Yes 4mg 4 mg, Slow Univers (ZOFRAN 6-30 IV Push, ity of (PF)) 02:52: Q6HPRN, [place] injection 4 29 Starting Medi brandy mg [facility] Branch 10/11/20 at 2152, Until Discontinu ed, Routine, Nausea and Vomiting (N/V) HYDROcodone 2020- No 1{tbl} 1 tablet, Univers -acetaminop 6-30 06-30 Oral, ity of hen (NORCO) 02:52: 15:44 Q6HPRN, [place] 10-325 mg 25 :37 Starting Medica l tablet 1 [facility] Branch tablet 10/11/20 at 2152, Until Sat10/12/20 at 1044, Routine, Pain (scale 7-10) HYDROcodone 2020- No 1{tbl} 1 tablet, Univers -acetaminop 6-30 07-02 Oral, ity of hen (NORCO 02:51: 02:50 Q6HPRN, [place] 5) 5-325 mg 18 :18 Starting Medi brandy tablet 1 e Branch tablet 10/11/20 at 2151, Until [place] 10/13/20 at 2150, Routine, Pain (scale 4-6) ibuprofen Yes 200mg 200 mg, Univ ers (MOTRIN IB) 6-30 Oral, ity of tablet 200 02:51: Q6HPRN, [place] mg 13 Starting Medical e Branch 10/11/20 at 2151, Until Discontinu ed, Routine, Pain (scale 1-3) morpHINE 202- No 4mg 4 mg, Slow Un you injection 4 6-30 06-30 IV Push, ity of mg 01:15: 00:14 ONCE, 1 [place] 00 :00 dose, e Medical 10/11/20 at Branch 2015, STAT fenofibrate 2020-0 Yes [id number] 145mg Take 1 Univers 145 mg 6-30 tablet by ity of tablet 00:00: mouth [place] 00 daily. [facility] lipase-prot 2020-0 Yes [id number] 3{capsu Take 3 Univers ease-amylas 6-30 le} capsules ity of e 00:00: by mouth 3 [place] 12,000-38,0 00 (three) Medic al 00 -60,000 times Branch unit daily with capsule meals. ursodioL 2020-0 Yes [id number] 250mg Take 1 Un you 250 mg 6-30 tablet by ity of tablet 00:00: mouth 2 [place] 00 (two) Medical times [place] daily. fenofibrate 2020-0 Yes [id number] 145mg Take 1 Univers 145 mg 6-30 tablet by ity of tablet 00:00: mouth [place] 00 daily. [facility] lipase-prot 2020-0 Yes 3{capsu Take 3 Univers ease-amylas 6-30 le} capsules ity of e 00:00: by mouth 3 [place] 12,000-38,0 00 (three) Medic al 00 -60,000 times Branch unit daily with capsule meals. ursodioL 2020-0 Yes [id number] 250mg Take 1 Un you 250 mg 6-30 tablet by ity of tablet 00:00: mouth 2 [place] 00 (two) Medical times [place] daily. fenofibrate 2020-0 Yes [id number] 145mg Take 1 Univers 145 mg 6-30 tablet by ity of tablet 00:00: mouth [place] 00 daily. [facility] lipase-prot 2020-0 Yes 3{capsu Take 3 Univers ease-amylas 6-30 le} capsules ity of e 00:00: by mouth 3 [place] 12,000-38,0 00 (three) Medic al 00 -60,000 times Branch unit daily with capsule meals. ursodioL 2020-0 Yes [id number] 250mg Take 1 Un you 250 mg 6-30 tablet by ity of tablet 00:00: mouth 2 [place] 00 (two) Medical times Branch daily. fenofibrate 2020-0 Yes [id number] 145mg Take 1 Univers 145 mg 6-30 tablet by ity of tablet 00:00: mouth [place] 00 daily. Medical Branch lipase-prot 2020-0 Yes [id number] 3{capsu Take 3 Univers ease-amylas 6-30 le} capsules ity of e 00:00: by mouth 3 [place] 12,000-38,0 00 (three) Medic al 00 -60,000 times Branch unit daily with capsule meals. ursodioL 2020-0 Yes [id number] 250mg Take 1 Un you 250 mg 6-30 tablet by ity of tablet 00:00: mouth 2 00 (two) Medical times Branch daily. fenofibrate 2020-0 Yes [id number] 145mg Take 1 Univers 145 mg 6-30 tablet by ity of tablet 00:00: mouth [place] 00 daily. Medical Branch lipase-prot 2020-0 Yes [id number] 3{capsu Take 3 Univers ease-amylas 6-30 le} capsules ity of e 00:00: by mouth 3 [place] 12,000-38,0 00 (three) Medic al 00 -60,000 times Branch unit daily with capsule meals. ursodioL 2020-0 Yes [id number] 250mg Take 1 Un you 250 mg 6-30 tablet by ity of tablet 00:00: mouth 2 00 (two) Medical times Branch daily. fenofibrate 2020-0 Yes [id number] 145mg Take 1 Univers 145 mg 6-30 tablet by ity of tablet 00:00: mouth [place] 00 daily. Medical Branch lipase-prot 2020-0 Yes [id number] 3{capsu Take 3 Univers ease-amylas 6-30 le} capsules ity of e 00:00: by mouth 3 [place] 12,000-38,0 00 (three) Medic al 00 -60,000 times Branch unit daily with capsule meals. ursodioL 2020-0 Yes [id number] 250mg Take 1 Un you 250 mg 6-30 tablet by ity of tablet 00:00: mouth 2 00 (two) Medical times Branch daily. fenofibrate 2020-0 Yes [id number] 145mg Take 1 Univers 145 mg 6-30 tablet by ity of tablet 00:00: mouth [place] 00 daily. Medical Branch lipase-prot 2020-0 Yes [id number] 3{capsu Take 3 Univers ease-amylas 6-30 le} capsules ity of e 00:00: by mouth 3 [place] 12,000-38,0 00 (three) Medic al 00 -60,000 times Branch unit daily with capsule meals. ursodioL 2020-0 Yes [id number] 250mg Take 1 Un you 250 mg 6-30 tablet by ity of tablet 00:00: mouth 2 [place] 00 (two) Medical times Branch daily. fenofibrate 2020-0 Yes [id number] 145mg Take 1 Univers 145 mg 6-30 tablet by ity of tablet 00:00: mouth [place] 00 daily. Medical Branch lipase-prot 2020-0 Yes [id number] 3{capsu Take 3 Univers ease-amylas 6-30 le} capsules ity of e 00:00: by mouth 3 [place] 12,000-38,0 00 (three) Medic al 00 -60,000 times Branch unit daily with capsule meals. ursodioL 2020-0 Yes [id number] 250mg Take 1 Un you 250 mg 6-30 tablet by ity of tablet 00:00: mouth 2 00 (two) Medical times Branch daily. fenofibrate 2020-0 Yes [id number] 145mg Take 1 Univers 145 mg 6-30 tablet by ity of tablet 00:00: mouth [place] 00 daily. Medical Branch lipase-prot 2020-0 Yes [id number] 3{capsu Take 3 Univers ease-amylas 6-30 le} capsules ity of e 00:00: by mouth 3 [place] 12,000-38,0 00 (three) Medic al 00 -60,000 times Branch unit daily with capsule meals. ursodioL 2020-0 Yes [id number] 250mg Take 1 Un you 250 mg 6-30 tablet by ity of tablet 00:00: mouth 2 [place] 00 (two) Medical times Branch daily. fenofibrate 2020-0 Yes [id number] 145mg Take 1 Univers 145 mg 6-30 tablet by ity of tablet 00:00: mouth [place] 00 daily. Medical Branch lipase-prot 2020-0 Yes [id number] 3{capsu Take 3 Univers ease-amylas 6-30 le} capsules ity of e 00:00: by mouth 3 [place] 12,000-38,0 00 (three) Medic al 00 -60,000 times Branch unit daily with capsule meals. ursodioL 2020-0 Yes [id number] 250mg Take 1 Un you 250 mg 6-30 tablet by ity of tablet 00:00: mouth 2 [place] 00 (two) Medical times Branch daily. fenofibrate 2020-0 Yes [id number] 145mg Take 1 Univers 145 mg 6-30 tablet by ity of tablet 00:00: mouth [place] 00 daily. Medical Branch lipase-prot 2020-0 Yes [id number] 3{capsu Take 3 Univers ease-amylas 6-30 le} capsules ity of e 00:00: by mouth 3 [place] 12,000-38,0 00 (three) Medic al 00 -60,000 times Branch unit daily with capsule meals. ursodioL 2020-0 Yes [id number] 250mg Take 1 Un you 250 mg 6-30 tablet by ity of tablet 00:00: mouth 2 00 (two) Medical times Branch daily. fenofibrate 2020-0 Yes [id number] 145mg Take 1 Univers 145 mg 6-30 tablet by ity of tablet 00:00: mouth [place] 00 daily. Medical Branch lipase-prot 2020-0 Yes [id number] 3{capsu Take 3 Univers ease-amylas 6-30 le} capsules ity of e 00:00: by mouth 3 [place] 12,000-38,0 00 (three) Medic al 00 -60,000 times Branch unit daily with capsule meals. ursodioL 2020-0 Yes [id number] 250mg Take 1 Un you 250 mg 6-30 tablet by ity of tablet 00:00: mouth 2 00 (two) Medical times Branch daily. fenofibrate 2020-0 Yes [id number] 145mg Take 1 Univers 145 mg 6-30 tablet by ity of tablet 00:00: mouth [place] 00 daily. Medical Branch lipase-prot 2020-0 Yes [id number] 3{capsu Take 3 Univers ease-amylas 6-30 le} capsules ity of e 00:00: by mouth 3 [place] 12,000-38,0 00 (three) Medic al 00 -60,000 times Branch unit daily with capsule meals. ursodioL 2020-0 Yes [id number] 250mg Take 1 Un you 250 mg 6-30 tablet by ity of tablet 00:00: mouth 2 (two) Medical times Branch daily. fenofibrate 2020-0 Yes [id number] 145mg Take 1 Univers 145 mg 6-30 tablet by ity of tablet 00:00: mouth [place] 00 daily. Medical Branch lipase-prot 2020-0 Yes [id number] 3{capsu Take 3 Univers ease-amylas 6-30 le} capsules ity of e 00:00: by mouth 3 [place] 12,000-38,0 00 (three) Medic al 00 -60,000 times Branch unit daily with capsule meals. ursodioL 2020-0 Yes [id number] 250mg Take 1 Un you 250 mg 6-30 tablet by ity of tablet 00:00: mouth 2 00 (two) Medical times Branch daily. fenofibrate 2020-0 Yes [id number] 145mg Take 1 Univers 145 mg 6-30 tablet by ity of tablet 00:00: mouth 00 daily. Medical Branch lipase-prot 2020-0 Yes [id number] 3{capsu Take 3 Univers ease-amylas 6-30 le} capsules ity of e 00:00: by mouth 3 [place] 12,000-38,0 00 (three) Medic al 00 -60,000 times Branch unit daily with capsule meals. ursodioL 2020-0 Yes [id number] 250mg Take 1 Un you 250 mg 6-30 tablet by ity of tablet 00:00: mouth 2 00 (two) Medical times Branch daily. fenofibrate 2020-0 Yes [id number] 145mg Take 1 Univers 145 mg 6-30 tablet by ity of tablet 00:00: mouth 00 daily. Medical Branch lipase-prot 2020-0 Yes [id number] 3{capsu Take 3 Univers ease-amylas 6-30 le} capsules ity of e 00:00: by mouth 3 [place] 12,000-38,0 00 (three) Medic al 00 -60,000 times Branch unit daily with capsule meals. ursodioL 2020-0 Yes [id number] 250mg Take 1 Un you 250 mg 6-30 tablet by ity of tablet 00:00: mouth 2 00 (two) Medical times Branch daily. fenofibrate 2020-0 Yes [id number] 145mg Take 1 Univers 145 mg 6-30 tablet by ity of tablet 00:00: mouth [place] 00 daily. Medical Branch lipase-prot 2020-0 Yes [id number] 3{capsu Take 3 Univers ease-amylas 6-30 le} capsules ity of e 00:00: by mouth 3 [place] 12,000-38,0 00 (three) Medic al 00 -60,000 times Branch unit daily with capsule meals. ursodioL 2020-0 Yes [id number] 250mg Take 1 Un you 250 mg 6-30 tablet by ity of tablet 00:00: mouth 2 00 (two) Medical times Branch daily. fenofibrate 2020-0 Yes [id number] 145mg Take 1 Univers 145 mg 6-30 tablet by ity of tablet 00:00: mouth 00 daily. Medical Branch lipase-prot 2020-0 Yes [id number] 3{capsu Take 3 Univers ease-amylas 6-30 le} capsules ity of e 00:00: by mouth 3 [place] 12,000-38,0 00 (three) Medic al 00 -60,000 times Branch unit daily with capsule meals. ursodioL 2020-0 Yes [id number] 250mg Take 1 Un you 250 mg 6-30 tablet by ity of tablet 00:00: mouth 2 (two) Medical times Branch daily. fenofibrate 2020-0 Yes [id number] 145mg Take 1 Univers 145 mg 6-30 tablet by ity of tablet 00:00: mouth 00 daily. Medical Branch lipase-prot 2020-0 Yes [id number] 3{capsu Take 3 Univers ease-amylas 6-30 le} capsules ity of e 00:00: by mouth 3 [place] 12,000-38,0 00 (three) Medic al 00 -60,000 times Branch unit daily with capsule meals. ursodioL 2020-0 Yes [id number] 250mg Take 1 Un you 250 mg 6-30 tablet by ity of tablet 00:00: mouth 2 00 (two) Medical times Branch daily. fenofibrate 2020-0 Yes [id number] 145mg Take 1 Univers 145 mg 6-30 tablet by ity of tablet 00:00: mouth [place] 00 daily. Medical Branch lipase-prot 2020-0 Yes [id number] 3{capsu Take 3 Univers ease-amylas 6-30 le} capsules ity of e 00:00: by mouth 3 [place] 12,000-38,0 00 (three) Medic al 00 -60,000 times Branch unit daily with capsule meals. ursodioL 2020-0 Yes [id number] 250mg Take 1 Un you 250 mg 6-30 tablet by ity of tablet 00:00: mouth 2 (two) Medical times Branch daily. fenofibrate 2020-0 Yes [id number] 145mg Take 1 Univers 145 mg 6-30 tablet by ity of tablet 00:00: mouth [place] 00 daily. Medical Branch fenofibrate 2020-0 Yes [id number] 145mg Take 1 Univers 145 mg 6-30 tablet by ity of tablet 00:00: mouth [place] 00 daily. Medical Branch lipase-prot 2020-0 Yes [id number] 3{capsu Take 3 Univers ease-amylas 6-30 le} capsules ity of e 00:00: by mouth 3 [place] 12,000-38,0 00 (three) Medic al 00 -60,000 times Branch unit daily with capsule meals. ursodioL 2020-0 Yes [id number] 250mg Take 1 Un you 250 mg 6-30 tablet by ity of tablet 00:00: mouth 2 [place] (two) Medical times Branch daily. lipase-prot 2020-0 Yes [id number] 3{capsu Take 3 Univers ease-amylas 6-30 le} capsules ity of e 00:00: by mouth 3 [place] 12,000-38,0 00 (three) Medic al 00 -60,000 times Branch unit daily with capsule meals. ursodioL 2020-0 Yes [id number] 250mg Take 1 Un you 250 mg 6-30 tablet by ity of tablet 00:00: mouth 2 [place] (two) Medical times Branch daily. fenofibrate 2020-0 Yes [id number] 145mg Take 1 Univers 145 mg 6-30 tablet by ity of tablet 00:00: mouth [place] 00 daily. Medical Branch lipase-prot 2020-0 Yes [id number] 3{capsu Take 3 [facility] ease-amylas 6-30 le} capsules ity of e 00:00: by mouth 3 [place] 12,000-38,0 00 (three) Medic al 00 -60,000 times Branch unit daily with capsule meals. ursodioL 2020-0 Yes [id number] 250mg Take 1 Un you 250 mg 6-30 tablet by ity of tablet 00:00: mouth 2 [place] 00 (two) Medical times Branch daily. fenofibrate 2020-0 Yes [id number] 145mg Take 1 [facility] 145 mg 6-30 tablet by ity of tablet 00:00: mouth [place] 00 daily. Medical Branch lipase-prot 2020-0 Yes [id number] 3{capsu Take 3 [facility] ease-amylas 6-30 le} capsules ity of e 00:00: by mouth 3 [place] 12,000-38,0 00 (three) Medic al 00 -60,000 times Branch unit daily with capsule meals. ursodioL 2020-0 Yes [id number] 250mg Take 1 Un you 250 mg 6-30 tablet by ity of tablet 00:00: mouth 2 [place] 00 (two) Medical times Branch daily. fenofibrate 2020-0 Yes [id number] 145mg Take 1 [facility] 145 mg 6-30 tablet by ity of tablet 00:00: mouth [place] 00 daily. Medical Branch fenofibrate 2020- Yes [id number] 145mg Take 1 [facility] 145 mg 6-30 tablet by ity of tablet 00:00: mouth [place] 00 daily. Medical Branch fenofibrate Yes [id number] 145mg Take 1 [facility] 145 mg 6-30 tablet by ity of tablet 00:00: mouth [place] 00 daily. Medical Branch lipase-prot 2020-0 Yes [id number] 3{capsu Take 3 [facility] ease-amylas 6-30 le} capsules ity of e 00:00: by mouth 3 [place] 12,000-38,0 00 (three) Medic al 00 -60,000 times Branch unit daily with capsule meals. ursodioL 2020-0 Yes [id number] 250mg Take 1 Un you 250 mg 6-30 tablet by ity of tablet 00:00: mouth 2 [place] 00 (two) Medical times Branch daily. fenofibrate 2020-0 Yes [id number] 145mg Take 1 [facility] 145 mg 6-30 tablet by ity of tablet 00:00: mouth [place] 00 daily. Medical Branch fenofibrate 2020-0 Yes [id number] 145mg Take 1 [facility] 145 mg 6-30 tablet by ity of tablet 00:00: mouth [place] 00 daily. Medical Branch fenofibrate 2020-0 Yes [id number] 145mg Take 1 [facility] 145 mg 6-30 tablet by ity of tablet 00:00: mouth [place] 00 daily. Medical Branch fenofibrate 2020-0 Yes [id number] 145mg Take 1 [facility] 145 mg 6-30 tablet by ity of tablet 00:00: mouth [place] 00 daily. Medical Branch fenofibrate 2020-0 Yes [id number] 145mg Take 1 [facility] 145 mg 6-30 tablet by ity of tablet 00:00: mouth [place] 00 daily. Medical Branch fenofibrate 2020-0 Yes [id number] 145mg Take 1 [facility] 145 mg 6-30 tablet by ity of tablet 00:00: mouth [place] 00 daily. Medical Branch fenofibrate 2020-0 Yes [id number] 145mg Take 1 [facility] 145 mg 6-30 tablet by ity of tablet 00:00: mouth [place] 00 daily. Medical Branch fenofibrate 2020-0 Yes [id number] 145mg Take 1 [facility] 145 mg 6-30 tablet by ity of tablet 00:00: mouth [place] 00 daily. Medical Branch fenofibrate 2020-0 Yes [id number] 145mg Take 1 [facility] 145 mg 6-30 tablet by ity of tablet 00:00: mouth [place] 00 daily. Medical Branch fenofibrate 2020-0 Yes [id number] 145mg Take 1 [facility] 145 mg 6-30 tablet by ity of tablet 00:00: mouth [place] 00 daily. Medical Branch fenofibrate 2020-0 Yes [id number] 145mg Take 1 [facility] 145 mg 6-30 tablet by ity of tablet 00:00: mouth [place] 00 daily. Medical Branch fenofibrate 2020-0 Yes [id number] 145mg Take 1 [facility] 145 mg 6-30 tablet by ity of tablet 00:00: mouth [place] 00 daily. Medical Branch fenofibrate 2020-0 Yes [id number] 145mg Take 1 [facility] 145 mg 6-30 tablet by ity of tablet 00:00: mouth [place] 00 daily. Medical Branch fenofibrate 2020-0 Yes [id number] 145mg Take 1 [facility] 145 mg 6-30 tablet by ity of tablet 00:00: mouth [place] 00 daily. Medical Branch fenofibrate 2020-0 Yes [id number] 145mg Take 1 [facility] 145 mg 6-30 tablet by ity of tablet 00:00: mouth [place] 00 daily. Medical Branch fenofibrate 2020-0 Yes [id number] 145mg Take 1 [facility] 145 mg 6-30 tablet by ity of tablet 00:00: mouth [place] 00 daily. Medical Branch fenofibrate 2020-0 Yes [id number] 145mg Take 1 [facility] 145 mg 6-30 tablet by ity of tablet 00:00: mouth [place] 00 daily. Medical Branch fenofibrate Yes [id number] 145mg Take 1 [facility] 145 mg 6-30 tablet by ity of tablet 00:00: mouth [place] 00 daily. Medical Branch lipase-prot 2021- No [id number] 3{capsu Take 3 [facility] ease-amylas 10-12 le} capsules ity of e 00:00: 00:00 by mouth 3 [place] 12,000-38,0 00 :00 (three) Medic al 00 -60,000 times Branch unit daily with capsule meals. ursodioL 2021- No [id number] 250mg Take 1 U nivers 250 mg 10-12 tablet by ity of tablet 00:00: 00:00 mouth 2 [place] 00 :00 (two) Medical times Branch daily. morpHINE 2020- No 6mg 6 mg, Slow Un you injection 6 10-11 IV Push, ity of mg 22:15: 21:09 ONCE, 1 [place] 00 :00 dose, [facility] 10/11/20 at Branch 1715, STAT FENTanyl PF 2020- No 100ug 100 mcg, Univers (SUBLIMAZE 10-11 Slow IV ity o f (PF)) 20:00: 18:53 Push, [place] injection 00 :00 ONCE, 1 Medical 100 mcg dose, [facility] Branch 10/11/20 at 1500, Routine ondansetron 2020- No 4mg 4 mg, Slow Univers (ZOFRAN 10-11 IV Push, ity of (PF)) 20:00: 18:54 ONCE, 1 [place] injection 4 00 :00 dose, [facility] Med ical mg 10/11/20 at Branch 1500, [place] morpHINE 2020- No 6mg 6 mg, Slow Un you injection 6 10-11 IV Push, ity of mg 16:45: 15:42 ONCE, 1 [place] 00 :00 dose, [facility] 10/11/20 at Branch 1145, STAT FENTanyl PF 2020- No 100ug 100 mcg, Univers (SUBLIMAZE 10-11 Slow IV ity o f (PF)) 16:15: 15:06 Push, [place] injection 00 :00 ONCE, 1 Medical 100 mcg dose, [facility] Branch 10/11/20 at 1115, Routine metoclopram 2020- No 10mg 10 mg, Uni vers selena HCl 10-11 Slow IV ity of (REGLAN) 16:15: 15:06 Push, [place] injection 00 :00 ONCE, 1 Medical 10 mg dose, [facility] Branch 10/11/20 at 1115, [place] morpHINE 2020- No 4mg 4 mg, Slow Un you injection 4 10-05 IV Push, ity of mg 01:15: 00:15 ONCE, 1 [place] 00 :00 dose, [facility] 10/04/20 at Branch 2015, STAT ondansetron 0 2020- No 4mg 4 mg, Slow Univers (ZOFRAN 10-05 IV Push, ity of (PF)) 00:00: 23:22 ONCE, 1 [place] injection 4 00 :00 dose, [facility] Med ical mg 10/04/20 at Branch 1900, [place] FENTanyl PF 2020- No 50ug 50 mcg, Un you (SUBLIMAZE 10-05 Slow IV ity o f (PF)) 00:00: 23:22 Push, [place] injection 00 :00 ONCE, 1 Medical 50 mcg dose, [facility] 10/04/20 at 1900, STAT NaCl 0.9% 2020- No 1000mL at 999 Uni vers (NS) bolus 10-04 mL/hr, ity of infusion 23:00: 01:20 1,000 mL, [place] 1,000 mL 00 :00 IV Medical Infusion, Branch ONCE, 1 dose, [facility] 10/04/20 at 1800, [place] promethazin Yes [id number] 50mg Insert 1 Univers e 50 mg 10-04 Suppositor ity of suppository 00:00: [place] 00 rectum Medical every 6 Branch (six) hours as needed for Nausea and Vomiting (N/V). ondansetron 0 Yes [id number] 4mg Take 1 [facility] (ZOFRAN -22 tablet by ity of ODT) 4 mg 00:00: mouth [place] disintegrat 00 every 8 Medic al ing tablet (eight) Branch hours as needed for Nausea and Vomiting (N/V). promethazin Yes [id number] 50mg Insert 1 Univers e 50 mg 6-22 Suppositor ity of suppository 00:00: y [place] 00 rectum Medical every 6 Branch (six) hours as needed for Nausea and Vomiting (N/V). promethazin Yes [id number] 50mg Insert 1 [facility] e 50 mg 6-22 Suppositor ity of suppository 00:00: y [place] 00 rectum Medical every 6 Branch (six) hours as needed for Nausea and Vomiting (N/V). promethazin Yes [id number] 50mg Insert 1 Univers e 50 mg 6-22 Suppositor ity of suppository 00:00: y [place] 00 rectum Medical every 6 Branch (six) hours as needed for Nausea and Vomiting (N/V). promethazin Yes [id number] 50mg Insert 1 Univers e 50 mg 6-22 Suppositor ity of suppository 00:00: y [place] 00 rectum Medical every 6 Branch (six) hours as needed for Nausea and Vomiting (N/V). promethazin Yes [id number] 50mg Insert 1 Univers e 50 mg 6-22 Suppositor ity of suppository 00:00: y [place] 00 rectum Medical every 6 Branch (six) hours as needed for Nausea and Vomiting (N/V). promethazin Yes [id number] 50mg Insert 1 Univers e 50 mg 6-22 Suppositor ity of suppository 00:00: y into [place] 00 rectum Medical every 6 Branch (six) hours as needed for Nausea and Vomiting (N/V). promethazin Yes [id number] 50mg Insert 1 Univers e 50 mg 6-22 Suppositor ity of suppository 00:00: y [place] 00 rectum Medical every 6 Branch (six) hours as needed for Nausea and Vomiting (N/V). promethazin Yes [id number] 50mg Insert 1 Univers e 50 mg 6-22 Suppositor ity of suppository 00:00: y [place] 00 rectum Medical every 6 Branch (six) hours as needed for Nausea and Vomiting (N/V). promethazin Yes [id number] 50mg Insert 1 Univers e 50 mg 6-22 Suppositor ity of suppository 00:00: y into [place] 00 rectum Medical every 6 Branch (six) hours as needed for Nausea and Vomiting (N/V). promethazin Yes [id number] 50mg Insert 1 Univers e 50 mg 6-22 Suppositor ity of suppository 00:00: y into [place] 00 rectum Medical every 6 Branch (six) hours as needed for Nausea and Vomiting (N/V). promethazin Yes [id number] 50mg Insert 1 Univers e 50 mg 6-22 Suppositor ity of suppository 00:00: y into [place] 00 rectum Medical every 6 Branch (six) hours as needed for Nausea and Vomiting (N/V). promethazin Yes [id number] 50mg Insert 1 Univers e 50 mg 6-22 Suppositor ity of suppository 00:00: y into [place] 00 rectum Medical every 6 Branch (six) hours as needed for Nausea and Vomiting (N/V). promethazin Yes [id number] 50mg Insert 1 Univers e 50 mg 6-22 Suppositor ity of suppository 00:00: y into [place] 00 rectum Medical every 6 Branch (six) hours as needed for Nausea and Vomiting (N/V). promethazin Yes [id number] 50mg Insert 1 Univers e 50 mg 6-22 Suppositor ity of suppository 00:00: y into [place] 00 rectum Medical every 6 Branch (six) hours as needed for Nausea and Vomiting (N/V). promethazin Yes [id number] 50mg Insert 1 Univers e 50 mg 6-22 Suppositor ity of suppository 00:00: y into [place] 00 rectum Medical every 6 Branch (six) hours as needed for Nausea and Vomiting (N/V). promethazin Yes [id number] 50mg Insert 1 Univers e 50 mg 6-22 Suppositor ity of suppository 00:00: y into [place] 00 rectum Medical every 6 Branch (six) hours as needed for Nausea and Vomiting (N/V). promethazin Yes [id number] 50mg Insert 1 Univers e 50 mg 6-22 Suppositor ity of suppository 00:00: y into [place] 00 rectum Medical every 6 Branch (six) hours as needed for Nausea and Vomiting (N/V). promethazin Yes [id number] 50mg Insert 1 Univers e 50 mg 6-22 Suppositor ity of suppository 00:00: y into [place] 00 rectum Medical every 6 Branch (six) hours as needed for Nausea and Vomiting (N/V). promethazin Yes [id number] 50mg Insert 1 Univers e 50 mg 6-22 Suppositor ity of suppository 00:00: y into [place] 00 rectum Medical every 6 Branch (six) hours as needed for Nausea and Vomiting (N/V). promethazin Yes [id number] 50mg Insert 1 Univers e 50 mg 6-22 Suppositor ity of suppository 00:00: y into [place] 00 rectum Medical every 6 Branch (six) hours as needed for Nausea and Vomiting (N/V). promethazin 2021- No [id number] 50mg Insert 1 Univers e 50 mg 6-22 - Suppositor ity o f suppository 00:00: 00:00 y into [place] 00 :00 rectum Medical every 6 Branch (six) hours as needed for Nausea and Vomiting (N/V). ondansetron 2020- No [id number] 4mg Take 1 [facility] (ZOFRAN 6-22 06-30 tablet by ity of ODT) 4 [...] 2 5-28 by mouth 2 [facility] tablet 13:24: (two) Medical 24 times Center daily as needed for Anxiety. losartan Yes TAKE [address] [facility] (COZAAR) -28 TABLET BY [facility] 100 MG 13:24: MOUTH Medical tablet 24 EVERY DAY Center diazePAM Yes 2mg Take [address] [facility] (VALIUM) 2 - by mouth 2 [facility] MG tablet 13:24: (two) Medical 24 times Center daily as needed for Anxiety. pancrelipas 2021- No [id number]{ Take [address] [facility] e, 09-09- lipase} capsules [facility] Lip-Prot-Am 00:00: 23:59 (72,000 Me dical yl, (CREON) 00 :00 units of Cent er 24,000-76,0 lipase 00 -120,000 total) by unit CpDR mouth 3 capsule (three) times daily with meals. ursodioL 2021- No 500mg Q.5D Take 1 [facility] (ACTIGALL[facility]- tablet [facility] 500 MG 00:00: 23:59 (500 mg Medical tablet 00 :00 total) by Center mouth 2 (two) times daily. pancrelipas 2021- No [id number]{ Take [address] [facility], 09-09- lipase} capsules [facility] Lip-Prot-Am 00:00: 23:59 (72,000 Me dical yl, (CREON) 00 :00 units of Cent er 24,000-76,0 lipase 00 -120,000 total) by unit CpDR mouth 3 capsule (three) times daily with meals. ursodioL 2021- No 500mg Q.5D Take 1 [facility] (ACTIGALL[facility] 09-09- tablet [facility] 500 MG 00:00: 23:59 (500 [...] 2020- No 5mg 5 mg, Univers (VALIUM) 4-23 04-23 Oral, ity of tablet 5 mg 14:30: [...] Fri Med ical ing tablet 08/05/20 at [facility] 4 mg 0930, Routine tiZANidine Yes 2mg Q.5D Take [address] [facility] [address] [facility] (ZANAFLEX) 4-19 by mouth 2 [facility] 2 MG tablet 00:00: (two) Medic al 00 times Center daily. traZODone 0 Yes 100mg QD Take [address] [facility] (DESYREL) 4-19 mg by [facility] 100 MG 00:00: mouth Medical tablet 00 nightly. [employer] tiZANidine Yes 2mg Q.5D Take [address] (ZANAFLEX) 4-19 by mouth 2 [facility] 2 MG tablet 00:00: (two) Medic al 00 times Center daily. traZODone 2020-0 Yes 100mg QD Take [address] [facility] (DESYREL) 4-19 mg by [facility] 100 MG 00:00: mouth Medical tablet 00 nightly. [employer] traZODone 2020- Yes 100mg Take 100 Uni vers 100 mg 4-05 mg by ity of tablet 13:30: mouth at [place] [address] bedtime. [facility] Branch traZODone 2020-0 Yes 100mg Take 100 Uni vers 100 mg 4-05 mg by ity of tablet 13:30: mouth at [place] [address] bedtime. [facility] Branch traZODone 0 Yes 100mg Take 100 Uni vers 100 mg 4-05 mg by ity of tablet 13:30: mouth at [place] [address] bedtime. [facility] Branch triamcinolo 2021-0 Yes PRN, Univer s ne 4-05 Starting ity of acetonide 12:07: 07/18/[place] (KENALOG[place] 00 at 0707, Medica l injection Until Branch Discontinu ed, Routine, Intra-op iohexoL Yes PRN, Univers (OMNIPAQUE 4-05 Starting ity o f 300-50 mL)) 12:07: 07/18/20 [place] injection 00 at 0707, Medica l Until Branch Discontinu ed, Routine, Intra-op lidocaine Yes PRN, Univers 1% 05 Starting ity of (XYLOCAINE) 12:07: 07/18/20 [place] 10 mg/mL (1 00 at 0707, Medi brandy %) Until Branch injection Discontinu ed, Routine, Intra-op triamcinolo 2020- No PRN, [facility] [place] 07-1805 Starting ity of acetonide 12:07: 15:30 07/18/20 [place] (KENALOG) 00 :22 at 0707, Medica l injection Until Mon Branc h 07/18/20 at 1030, Routine, Intra-op iohexoL 2020- No PRN, Univers (OMNIPAQUE 07-18 04-05 Starting ity of 300-50 mL)) 12:07: 15:30 07/18/20 [place] injection 00 :22 at 0707, Medica l Until Mon Branch 07/18/20 at 1030, Routine, Intra-op lidocaine 2020- No PRN, Univers 1% 07-18 Starting ity of (XYLOCAINE) 12:07: 15:30 07/18/20 [...] 500mg Take 500 U nivers (DEPAKOTE) 07-18 mg by ity of 500 mg EC [...] :00 (two) Medical times Branch daily. LOSARTAN 2020-2020- No 100mg Take 100 Uni vers POTASSIUM 4-05 04-05 mg by ity of (LOSARTAN 11:42: 00:00 mouth [place] ORAL) 27 :00 daily. Medical Branch gabapentin 2020- No 300mg Take 300 U nivers (NEURONTIN) 4-05 04-05 mg by ity of 300 mg 11:42: 00:00 mouth 3 [place] capsule 27 :00 (three) Medical times Branch daily. QUEtiapine 2020-2020- No 400mg Take 400 U nivers (SEROQUEL) [...] ORAL) 27 :00 daily. Medical Branch gabapentin 2020-2020- No 300mg Take 300 U nivers (NEURONTIN) [...] ity of tablet 11:42: 00:00 mouth 2 [place] 27 :00 (two) Medical times Branch daily with meals. traZODone Yes 100mg Take 100 Uni vers 100 mg 4-05 mg by ity of tablet 11:28: mouth at [place] 50 bedtime. Medical Branch losartan Yes 100mg [...] ity of mg 03:15: 02:28 ONCE, 1 [place] 00 :00 dose, [facility] 07/07/20 at Branch 2215, STAT morpHINE 2020-2020- No 4mg 4 mg, Slow Un you injection 4 07-08 IV Push, ity of mg 01:45: 01:05 ONCE, 1 [place] 00 :00 dose, [facility] 07/07/20 at Branch 204, STAT iohexol 2020- No [id number] 120mL 120 mL, Univers (OMNIPAQUE 07-08 Intravenou it y of 350 01:00: 00:55 s, ONCE, 1 [place] BULK-150 00 :00 dose, [facility] Medica l mL) 07/07/20 at Branch injection 1999, 120 mL Routine NaCl 0.9% 2020- No 1000mL at 999 Uni vers (NS) bolus 07-08 mL/hr, ity of infusion 01:00: 02:24 1,000 mL, [place] 1,000 mL 00 :00 IV Medical Infusion, [place] ONCE, 1 dose, [facility] 07/07/20 at 2000, STAT ondansetron 2020- No 4mg 4 mg, Slow Univers (ZOFRAN 07-08 IV Push, ity of (PF)) 01:00: 00:25 ONCE, 1 [place] injection 4 00 :00 dose, [facility] ical mg 07/07/20 at Branch 1999, [place] ondansetron Yes [id number] 4mg Take 1 [facility] (ZOFRAN 3-25 tablet by ity of ODT) 4 mg 00:00: mouth [place] disintegrat 00 every 8 Medic al ing tablet (eight) Branch hours as needed for Nausea and Vomiting (N/V). ondansetron 2020- Yes [id number] 4mg Take 1 [facility] (ZOFRAN 3-25 tablet by ity of ODT) 4 mg 00:00: mouth [place] disintegrat 00 every 8 Medic al ing tablet (eight) Branch hours as needed for Nausea and Vomiting (N/V). ondansetron Yes [id number] 4mg Take 1 [facility] (ZOFRAN 3-25 tablet by ity of ODT) 4 mg 00:00: mouth [place] disintegrat 00 every 8 Medic al ing tablet (eight) Branch hours as needed for Nausea and Vomiting (N/V). ondansetron 2021-0 Yes [id number] 4mg Take 1 [facility] (ZOFRAN 3-25 tablet by ity of ODT) 4 mg 00:00: mouth [place] disintegrat 00 every 8 Medic al ing tablet (eight) Branch hours as needed for Nausea and Vomiting (N/V). ondansetron 2021-0 Yes [id number] 4mg Take 1 [facility] (ZOFRAN 3-25 tablet by ity of ODT) 4 mg 00:00: mouth [place] disintegrat 00 every 8 Medic al ing tablet (eight) Branch hours as needed for Nausea and Vomiting (N/V). ondansetron 2021-0 Yes [id number] 4mg Take 1 [facility] (ZOFRAN 3-25 tablet by ity of ODT) 4 mg 00:00: mouth [place] disintegrat 00 every 8 Medic al ing tablet (eight) Branch hours as needed for Nausea and Vomiting (N/V). ondansetron 2021-0 Yes [id number] 4mg Take 1 [facility] (ZOFRAN 3-25 tablet by ity of ODT) 4 mg 00:00: mouth [place] disintegrat 00 every 8 Medic al ing tablet (eight) Branch hours as needed for Nausea and Vomiting (N/V). ondansetron 2021-0 Yes [id number] 4mg Take 1 [facility] (ZOFRAN 3-25 tablet by ity of ODT) 4 mg 00:00: mouth [place] disintegrat 00 every 8 Medic al ing tablet (eight) Branch hours as needed for Nausea and Vomiting (N/V). ondansetron 2021-0 Yes [id number] 4mg Take 1 [facility] (ZOFRAN 3-25 tablet by ity of ODT) 4 mg 00:00: mouth [place] disintegrat 00 every 8 Medic al ing tablet (eight) Branch hours as needed for Nausea and Vomiting (N/V). ondansetron 2021-0 Yes [id number] 4mg Take 1 [facility] (ZOFRAN 3-25 tablet by ity of ODT) 4 mg 00:00: mouth [place] disintegrat 00 every 8 Medic al ing tablet (eight) Branch hours as needed for Nausea and Vomiting (N/V). ondansetron 2021-0 Yes [id number] 4mg Take 1 [facility] (ZOFRAN 3-25 tablet by ity of ODT) 4 mg 00:00: mouth [place] disintegrat 00 every 8 Medic al ing tablet (eight) Branch hours as needed for Nausea and Vomiting (N/V). ondansetron 2021-0 Yes [id number] 4mg Take 1 [facility] (ZOFRAN 3-25 tablet by ity of ODT) 4 mg 00:00: mouth [place] disintegrat 00 every 8 Medic al ing tablet (eight) Branch hours as needed for Nausea and Vomiting (N/V). ondansetron 2021-0 Yes [id number] 4mg Take 1 [facility] (ZOFRAN 3-25 tablet by ity of ODT) 4 mg 00:00: mouth [place] disintegrat 00 every 8 Medic al ing tablet (eight) Branch hours as needed for Nausea and Vomiting (N/V). ondansetron 2021-0 Yes [id number] 4mg Take 1 [facility] (ZOFRAN 3-25 tablet by ity of ODT) 4 mg 00:00: mouth [place] disintegrat 00 every 8 Medic al ing tablet (eight) Branch hours as needed for Nausea and Vomiting (N/V). ondansetron 2021-0 Yes [id number] 4mg Take 1 [facility] (ZOFRAN 3-25 tablet by ity of ODT) 4 mg 00:00: mouth [place] disintegrat 00 every 8 Medic al ing tablet (eight) Branch hours as needed for Nausea and Vomiting (N/V). ondansetron 2021-0 Yes [id number] 4mg Take 1 [facility] (ZOFRAN 3-25 tablet by ity of ODT) 4 mg 00:00: mouth [place] disintegrat 00 every 8 Medic al ing tablet (eight) Branch hours as needed for Nausea and Vomiting (N/V). ondansetron 2021-0 Yes [id number] 4mg Take 1 [facility] (ZOFRAN 3-25 tablet by ity of ODT) 4 mg 00:00: mouth [place] disintegrat 00 every 8 Medic al ing tablet (eight) Branch hours as needed for Nausea and Vomiting (N/V). ondansetron 2021-0 Yes [id number] 4mg Take 1 [facility] (ZOFRAN 3-25 tablet by ity of ODT) 4 mg 00:00: mouth [place] disintegrat 00 every 8 Medic al ing tablet (eight) Branch hours as needed for Nausea and Vomiting (N/V). ondansetron Yes [id number] 4mg Take 1 [facility] (ZOFRAN 3-25 tablet by ity of ODT) 4 mg 00:00: mouth [place] disintegrat 00 every 8 Medic al ing tablet (eight) Branch hours as needed for Nausea and Vomiting (N/V). ondansetron 0 2020- No [id number] 4mg Take 1 Univers (ZOFRAN 3-25 12-06 [...] 04 (three) Medical times Branch daily. QUEtiapine Yes 400mg Take 400 Un you (SEROQUEL) 3-22 mg by ity of 400 mg 13:47: mouth at [place] tablet 04 bedtime. Medical Branch escitalopra Yes 20mg Take 20 mg Univers m oxalate 3-22 by mouth ity of (LEXAPRO) 13:47: at [place] 20 mg 04 bedtime. Medical tablet Branch divalproex Yes 500mg [...] 3 it y of capsule 13:47: (three) [place] [address] times Medical daily. Branch meloxicam 0 Yes [...] mouth ity of capsule 13:47: at bedtime [facility] 04 as needed Medical for Branch Insomnia. ursodioL 0 Yes 500mg Take 500 Univ ers 500 mg 3-22 mg by ity of tablet 13:47: mouth 2 [place] 04 (two) Medical times Branch daily. traZODone 0 Yes 100mg Take 100 Uni vers 100 mg 3-22 mg by ity of tablet 13:47: mouth at [place] [address] bedtime. Medical Branch ARIPiprazol Yes 10mg Take 10 mg Univers e 10 mg 3-22 by mouth ity of tablet 13:47: daily. [place] Medical Branch carvediloL 0 Yes 12.5mg Take 12.5 Univers 12.5 mg 3-22 mg by ity of tablet 13:47: mouth 2 [place] 04 (two) Medical times [place] daily with meals. LOSARTAN 0 Yes 100mg [...] mg 04 bedtime. Medical tablet Branch divalproex Yes 500mg [...] ity of 1,000 mg in 12:00: Piggyback, [place] NaCl 0.9% 00 Q8H ABX, Medica l [...] Branch divalproex Yes 500mg Take 500 Un yuo (DEPAKOTE) 3-08 mg by ity of 500 mg EC 16:25: mouth [place] tablet 42 daily. Medical Branch tiZANidine Yes 4mg Take 4 mg Un you 4 mg 3-08 by mouth 2 ity of capsule 16:25: (two) [place] 42 times Medical daily. Branch chlordiazeP Yes 10mg Take 10 mg Univers OXIDE 10 mg 3-08 by mouth 3 it y of capsule 16:25: (three) [place] 42 times Medical daily. Branch meloxicam Yes 7.5mg Take 7.5 Uni vers 7.5 mg 3-08 mg by ity of tablet 16:25: mouth [place] 42 daily. Medical Branch lithium Yes 300mg [...] Sat06/20/20 [place] (SENSORCAIN 00 at 0810, Medi barndy E MPF) 0.25 Until Branch % (2.5 Discontinu mg/mL) ed, injection Routine, Intra-op lidocaine Yes PRN, Univers 1% 3-08 Starting ity of (XYLOCAINE) 14:09: Sat06/20/20 [place] 10 mg/mL (1 00 at 0809, Medi brandy %) Until Branch injection Discontinu ed, Routine, Intra-op propofoL IV 2020- No Intravenou Univers infusion 06-20 03-08 s, ONCE ity of 14:05: 14:12 INTRA [place] 00 :42 PROCEDURE, Medical Starting Branch [facility] 06/20/20 at 0805, Until Sat06/20/20 at 0812, Routine, Intra-op lactated 2020-0 2020- No IV Univers ringers IV 06-20 03-08 Infusion, ity of infusion 14:03: 14:12 CONTINUOUS [place] 00 :42 PRN, Medical Starting Branch [facility] 06/20/20 at 0803, Until Sat06/20/20 at 0812, Routine, Intra-op lactated 2020-0 2020- No 1000mL at 42 Unive rs ringers IV 3- 03-08 mL/hr, ity of infusion 13:00: 13:17 1,000 mL, [place] 1,000 mL 00 :00 IV Medical Infusion, Branch ONCE, 1 dose, [facility] 06/20/20 at 0700, Routine, [facility] Pre-op LOSARTAN 0 [...] 56 (two) Medical times Branch daily. temazepam Yes 15mg Take 15 mg Un you 15 mg 3-05 by mouth ity of capsule 16:06: at bedtime [place] 56 as needed Medical for Branch Insomnia. ursodioL 0 Yes 500mg Take 500 Univ ers 500 mg 3-05 mg by ity of tablet 16:06: mouth 2 [place] 56 (two) Medical times Branch daily. chlordiazeP Yes 10mg Take 10 mg Univers [...] 3 it y of capsule 16:05: (three) [place] 19 times Medical daily. Branch butalbital- 2020- No 1{tbl} 1 tablet, Univers acetaminoph 05-07 Oral, ONCE i ty of en-caff 00:15: 23:33 NOW, 1 [place] (ESGIC) 00 :00 dose, Fri Medical 50-325-40 05/06/20 at Bran ch mg tablet 1 1814, [place] tablet dexamethaso 2020- No 10mg 10 mg, IV Univers ne 05-07 Push, ity of (DECADRON 00:15: 23:34 ONCE, 1 [place] [facility] PHOSPHATE) 00 :00 dose, Fri Medi brandy injection 05/06/20 at Bran ch 10 mg 1814, STAT diphenhydrA 2020- No 25mg 25 mg, [...] Medical dose, Fri Branch 05/06/20 at 1645, [facility]
Fa culty member approving Restricted medication : EMERGENCY ROOM, NaCl 0.9% 2020- No 1000mL at 999 Uni vers (NS) bolus 05-06 mL/hr, ity of infusion 21:45: 00:30 1,000 mL, Archie as 1,000 mL 00 :00 IV Medical Infusion, Branch ONCE, 1 dose, 05/06/20 at 1545, [place] butalbital- Yes [id number] 1{tbl} Take 1 [facility] acetaminoph 1-22 tablet by ity of en-caff 00:00: mouth [place] 50-325-40 00 every 6 Medical mg tablet (six) Branch hours as needed for Pain (scale 7-10) or Other (headache) . butalbital- Yes [id number] 1{tbl} Take 1 [facility] acetaminoph 1-22 tablet by ity of en-caff 00:00: mouth [place] 50-325-40 00 every 6 Medical mg tablet (six) Branch hours as needed for Pain (scale 7-10) or Other (headache) . butalbital- Yes [id number] 1{tbl} Take 1 [facility] acetaminoph 1-22 tablet by ity of en-caff 00:00: mouth [place] 50-325-40 00 every 6 Medical mg tablet (six) Branch hours as needed for Pain (scale 7-10) or Other (headache) . butalbital- Yes [id number] 1{tbl} Take 1 [facility] acetaminoph 1-22 tablet by ity of en-caff 00:00: mouth [place] 50-325-40 00 every 6 Medical mg tablet (six) Branch hours as needed for Pain (scale 7-10) or Other (headache) . butalbital- Yes [id number] 1{tbl} Take 1 [facility] acetaminoph 1-22 tablet by ity of en-caff 00:00: mouth [place] 50-325-40 00 every 6 Medical mg tablet (six) Branch hours as needed for Pain (scale 7-10) or Other (headache) . butalbital- Yes [id number] 1{tbl} Take 1 [facility] acetaminoph 1-22 tablet by ity of en-caff 00:00: mouth [place] 50-325-40 00 every 6 Medical mg tablet (six) Branch hours as needed for Pain (scale 7-10) or Other (headache) . butalbital- Yes [id number] 1{tbl} Take 1 [facility] acetaminoph 1-22 tablet by ity of en-caff 00:00: mouth [place] 50-325-40 00 every 6 Medical mg tablet (six) Branch hours as needed for Pain (scale 7-10) or Other (headache) . butalbital- Yes [id number] 1{tbl} Take 1 [facility] acetaminoph 1-22 tablet by ity of en-caff 00:00: mouth [place] 50-325-40 00 every 6 Medical mg tablet (six) Branch hours as needed for Pain (scale 7-10) or Other (headache) . butalbital- Yes [id number] 1{tbl} Take 1 [facility] acetaminoph 1-22 tablet by ity of en-caff 00:00: mouth [place] 50-325-40 00 every 6 Medical mg tablet (six) Branch hours as needed for Pain (scale 7-10) or Other (headache) . butalbital- Yes [id number] 1{tbl} Take 1 [facility] acetaminoph 1-22 tablet by ity of en-caff 00:00: mouth [place] 50-325-40 00 every 6 Medical mg tablet (six) Branch hours as needed for Pain (scale 7-10) or Other (headache) . butalbital- Yes [id number] 1{tbl} Take 1 [facility] acetaminoph 1-22 tablet by ity of en-caff 00:00: mouth [place] 50-325-40 00 every 6 Medical mg tablet (six) Branch hours as needed for Pain (scale 7-10) or Other (headache) . butalbital- Yes [id number] 1{tbl} Take 1 [facility] acetaminoph 1-22 tablet by ity of en-caff 00:00: mouth [place] 50-325-40 00 every 6 Medical mg tablet (six) Branch hours as needed for Pain (scale 7-10) or Other (headache) . butalbital- Yes [id number] 1{tbl} Take 1 [facility] acetaminoph 1-22 tablet by ity of en-caff 00:00: mouth [place] 50-325-40 00 every 6 Medical mg tablet (six) Branch hours as needed for Pain (scale 7-10) or Other (headache) . butalbital- 2020- No [id number] 1{tbl} Take 1 [facility] acetaminoph 1-22 04-05 tablet by it y of en-caff 00:00: 00:00 mouth [place] 50-325-40 00 :00 every 6 Medical mg tablet (six) Branch hours as needed for Pain (scale 7-10) or Other (headache) . butalbital- 2020- No [id number] 1{tbl} Take 1 [facility] acetaminoph 1-22 04-05 [...] 2020- No .5[in_u 0.5 Inch, Univers n 05-27 s] Right Eye, ity of (ILOTYCIN) 07:00: 06:32 ONCE, 1 [place] as 5 mg/gram 00 :00 dose, Sat Medic al (0.5 %) 03/26/20 [place] ophthalmic at 0100, ointment [place] 0.5 Inch iohexol 2019-04- No 120mL 120 mL, Unive rs (OMNIPAQUE 05-27 Intravenou it y of 350 06:15: 06:07 s, ONCE, 1 [place] BULK-100 00 :00 dose, Sat Medica l mL) 03/26/20 Branch injection at 0015, 120 mL Routine morpHINE 2019-04- No 4mg 4 mg, Slow Un oyu injection 4 05-27 IV Push, ity of [...] mg 03/25/20 Branch at 2245, [place] morpHINE 2019-04 2020- No 4mg 4 mg, Slow Un you injection 4 05-27 IV Push, ity of mg 04:45: 03:40 ONCE, 1 [place] 00 :00 dose, Fri Medical 03/25/20 Branch at 2245, STAT traMADoL 2019-04 Yes [id number] 50mg Take 1 Univers (ULTRAM) 50 2-12 tablet by ity of mg tablet 00:00: mouth [place] 00 every 6 Medical (six) Branch hours as needed for Pain (scale 7-10). Indication s: acute pain traMADoL 2019-04 Yes [id number] 50mg Take 1 [facility] (ULTRAM) 50 2-12 tablet by ity of mg tablet 00:00: mouth [place] 00 every 6 Medical (six) Branch hours as needed for Pain (scale 7-10). Indication s: acute pain traMADoL 2019-04 Yes [id number] 50mg Take 1 Univers (ULTRAM) 50 2-12 tablet by ity of mg tablet 00:00: mouth [place] 00 every 6 Medical (six) Branch hours [...] s: acute pain erythromyci 2019-04 2020- No [id number] .5[in_u Place 0.5 Univers n 5 mg/gram -04-03 [id number] s] Inches in ity of (0.5 %) [...] 10 (two) Medical times Branch daily. LOSARTAN 2019- Yes 100mg Take 100 Univ ers POTASSIUM [...] Branch at 0845, Routine amLODIPine 2019- Yes [id number] 10mg Take 1 [facility] 10 mg 0-26 tablet by ity of tablet 00:00: mouth [place] 00 daily. Medical Branch hydrALAZINE 2019- Yes [id number] 50mg Take 1 [facility] 50 mg 0-26 tablet by ity of tablet 00:00: mouth [place] 00 every 8 Medical (eight) Branch hours. aspirin 81 2019-1 Yes [id number] 81mg Take 1 [facility] mg chewable 0-26 tablet by ity of tablet 00:00: mouth [place] 00 daily. Medical Branch amLODIPine 2019- Yes [id number] 10mg Take 1 [facility] 10 mg 0-26 tablet by ity of tablet 00:00: mouth [place] 00 daily. Medical Branch hydrALAZINE 2019- Yes [id number] 50mg Take 1 [facility] 50 mg 0-26 tablet by ity of tablet 00:00: mouth [place] 00 every 8 Medical (eight) Branch hours. aspirin 81 2019- Yes [id number] 81mg Take 1 [facility] mg chewable 0-26 tablet by ity of tablet 00:00: mouth [place] 00 daily. Medical Branch amLODIPine 2019-04 Yes [id number] 10mg Take 1 [facility] 10 mg 0-26 tablet by ity of tablet 00:00: mouth [place] 00 daily. Medical Branch hydrALAZINE 2019- Yes [id number] 50mg Take 1 [facility] 50 mg 0-26 tablet by ity of tablet 00:00: mouth [place] 00 every 8 Medical (eight) Branch hours. aspirin 81 2019-04 Yes [id number] 81mg Take 1 [facility] mg chewable 0-26 tablet by ity of tablet 00:00: mouth [place] 00 daily. Medical Branch amLODIPine 2019- Yes [id number] 10mg Take 1 [facility] 10 mg 0-26 tablet by ity of tablet 00:00: mouth [place] 00 daily. Medical Branch hydrALAZINE 2019- Yes [id number] 50mg Take 1 [facility] 50 mg 0-26 tablet by ity of tablet 00:00: mouth [place] 00 every 8 Medical (eight) Branch hours. aspirin 81 2019-1 Yes [id number] 81mg Take 1 [facility] mg chewable 0-26 tablet by ity of tablet 00:00: mouth [place] 00 daily. Medical Branch amLODIPine 2019- Yes [id number] 10mg Take 1 [facility] 10 mg 0-26 tablet by ity of tablet 00:00: mouth [place] 00 daily. Medical Branch hydrALAZINE 2019- Yes [id number] 50mg Take 1 [facility] 50 mg 0-26 tablet by ity of tablet 00:00: mouth [place] 00 every 8 Medical (eight) Branch hours. aspirin 81 2019- Yes [id number] 81mg Take 1 [facility] mg chewable 0-26 tablet by ity of tablet 00:00: mouth [place] 00 daily. Medical Branch amLODIPine 2019- Yes [id number] 10mg Take 1 [facility] 10 mg 0-26 tablet by ity of tablet 00:00: mouth [place] 00 daily. Medical Branch hydrALAZINE 2019- Yes [id number] 50mg Take 1 [facility] 50 mg 0-26 tablet by ity of tablet 00:00: mouth [place] 00 every 8 Medical (eight) Branch hours. aspirin 81 2019- Yes [id number] 81mg Take 1 [facility] mg chewable 0-26 tablet by ity of tablet 00:00: mouth [place] 00 daily. Medical Branch amLODIPine 2019-04 Yes [id number] 10mg Take 1 [facility] 10 mg 0-26 tablet by ity of tablet 00:00: mouth [place] 00 daily. Medical Branch hydrALAZINE 2019- Yes [id number] 50mg Take 1 [facility] 50 mg 0-26 tablet by ity of tablet 00:00: mouth [place] 00 every 8 Medical (eight) Branch hours. aspirin 81 2019-04 Yes [id number] 81mg Take 1 [facility] mg chewable 0-26 tablet by ity of tablet 00:00: mouth [place] 00 daily. Medical Branch amLODIPine 2019-04 Yes [id number] 10mg Take 1 [facility] 10 mg 0-26 tablet by ity of tablet 00:00: mouth [place] 00 daily. Medical Branch hydrALAZINE 2019- Yes [id number] 50mg Take 1 [facility] 50 mg 0-26 tablet by ity of tablet 00:00: mouth [place] 00 every 8 Medical (eight) Branch hours. aspirin 81 2019-1 Yes [id number] 81mg Take 1 [facility] mg chewable 0-26 tablet by ity of tablet 00:00: mouth [place] 00 daily. Medical Branch amLODIPine 2019- Yes [id number] 10mg Take 1 [facility] 10 mg 0-26 tablet by ity of tablet 00:00: mouth [place] 00 daily. Medical Branch hydrALAZINE 2019- Yes [id number] 50mg Take 1 [facility] 50 mg 0-26 tablet by ity of tablet 00:00: mouth [place] 00 every 8 Medical (eight) Branch hours. aspirin 81 2019- Yes [id number] 81mg Take 1 [facility] mg chewable 0-26 tablet by ity of tablet 00:00: mouth [place] 00 daily. Medical Branch amLODIPine 2019-1 Yes [id number] 10mg Take 1 [facility] 10 mg 0-26 tablet by ity of tablet 00:00: mouth [place] 00 daily. Medical Branch hydrALAZINE 2019- Yes [id number] 50mg Take 1 [facility] 50 mg 0-26 tablet by ity of tablet 00:00: mouth [place] 00 every 8 Medical (eight) Branch hours. aspirin 81 2019- Yes [id number] 81mg Take 1 [facility] mg chewable 0-26 tablet by ity of tablet 00:00: mouth [place] 00 daily. Medical Branch amLODIPine 2019- Yes [id number] 10mg Take 1 [facility] 10 mg 0-26 tablet by ity of tablet 00:00: mouth [place] 00 daily. Medical Branch hydrALAZINE 2019-04 Yes [id number] 50mg Take 1 [facility] 50 mg 0-26 tablet by ity of tablet 00:00: mouth [place] 00 every 8 Medical (eight) Branch hours. aspirin 81 2019-04 Yes [id number] 81mg Take 1 [facility] mg chewable 0-26 tablet by ity of tablet 00:00: mouth [place] 00 daily. Medical Branch amLODIPine 2019-04 Yes [id number] 10mg Take 1 [facility] 10 mg 0-26 tablet by ity of tablet 00:00: mouth [place] 00 daily. Medical Branch hydrALAZINE 2019-04 Yes [id number] 50mg Take 1 [facility] 50 mg 0-26 tablet by ity of tablet 00:00: mouth [place] 00 every 8 Medical (eight) Branch hours. aspirin 81 2019-04 Yes [id number] 81mg Take 1 [facility] mg chewable 0-26 tablet by ity of tablet 00:00: mouth [place] 00 daily. Medical Branch amLODIPine 2019- Yes [id number] 10mg Take 1 [facility] 10 mg 0-26 tablet by ity of tablet 00:00: mouth [place] 00 daily. Medical Branch hydrALAZINE 2019- Yes [id number] 50mg Take 1 [facility] 50 mg 0-26 tablet by ity of tablet 00:00: mouth [place] 00 every 8 Medical (eight) Branch hours. aspirin 81 2019-1 Yes [id number] 81mg Take 1 [facility] mg chewable 0-26 tablet by ity of tablet 00:00: mouth [place] 00 daily. Medical Branch amLODIPine 2019-04 Yes [id number] 10mg Take 1 [facility] 10 mg 0-26 tablet by ity of tablet 00:00: mouth [place] 00 daily. Medical Branch hydrALAZINE 2019- Yes [id number] 50mg Take 1 [facility] 50 mg 0-26 tablet by ity of tablet 00:00: mouth [place] 00 every 8 Medical (eight) Branch hours. aspirin 81 2019- Yes [id number] 81mg Take 1 [facility] mg chewable 0-26 tablet by ity of tablet 00:00: mouth [place] 00 daily. Medical Branch amLODIPine 2019-04 Yes [id number] 10mg Take 1 [facility] 10 mg 0-26 tablet by ity of tablet 00:00: mouth [place] 00 daily. Medical Branch hydrALAZINE 2019-04 Yes [id number] 50mg Take 1 [facility] 50 mg 0-26 tablet by ity of tablet 00:00: mouth [place] 00 every 8 Medical (eight) Branch hours. aspirin 81 2019-04 Yes [id number] 81mg Take 1 [facility] mg chewable 0-26 tablet by ity of tablet 00:00: mouth [place] 00 daily. Medical Branch amLODIPine 2019-04 Yes [id number] 10mg Take 1 [facility] 10 mg 0-26 tablet by ity of tablet 00:00: mouth [place] 00 daily. Medical Branch hydrALAZINE 2019-04 Yes [id number] 50mg Take 1 [facility] 50 mg 0-26 tablet by ity of tablet 00:00: mouth [place] 00 every 8 Medical (eight) Branch hours. aspirin 81 2019-04 Yes [id number] 81mg Take 1 Univers mg chewable 0-26 tablet by ity of tablet 00:00: mouth [place] 00 daily. Medical Branch amLODIPine 2019-04 Yes [id number] 10mg Take 1 [facility] 10 mg 0-26 tablet by ity of tablet 00:00: mouth [place] 00 daily. Medical Branch hydrALAZINE 2019-04 Yes [id number] 50mg Take 1 [facility] 50 mg 0-26 tablet by ity of tablet 00:00: mouth [place] 00 every 8 Medical (eight) Branch hours. aspirin 81 2019-04 Yes [id number] 81mg Take 1 Univers mg chewable 0-26 tablet by ity of tablet 00:00: mouth [place] 00 daily. Medical Branch amLODIPine 2019-04 Yes [id number] 10mg Take 1 [facility] 10 mg 0-26 tablet by ity of tablet 00:00: mouth [place] 00 daily. Medical Branch hydrALAZINE 2019- Yes [id number] 50mg Take 1 [facility] 50 mg 0-26 tablet by ity of tablet 00:00: mouth [place] 00 every 8 Medical (eight) Branch hours. aspirin 81 2019-04 Yes [id number] 81mg Take 1 Univers mg chewable 0-26 tablet by ity of tablet 00:00: mouth [place] 00 daily. Medical Branch amLODIPine 2019-04- No [id number] 10mg Take 1 Univers 10 mg 0-26 04-05 tablet by ity of tablet 00:00: 00:00 mouth [place] 00 :00 daily. Medical Branch hydrALAZINE 2019-04- No [id number] 50mg Take 1 Univers 50 mg 0-26 04-05 tablet by ity of tablet 00:00: 00:00 mouth [place] 00 :00 every 8 Medical (eight) Branch hours. aspirin 81 2019-04- No [id number] 81mg Take 1 Univers mg chewable 0-26 04-05 tablet by it y of tablet 00:00: 00:00 mouth [place] 00 :00 daily. Medical Branch amLODIPine 2019-04- No [id number] 10mg Take 1 Univers 10 mg 0-26 04-05 tablet by ity of tablet 00:00: 00:00 mouth [place] 00 :00 daily. Medical Branch hydrALAZINE 2019-04- No [id number] 50mg Take 1 Univers 50 mg 0-26 04-05 tablet by ity of tablet 00:00: 00:00 mouth [place] 00 :00 every 8 Medical (eight) Branch hours. aspirin 81 2019-04- No [id number] 81mg Take 1 [facility] mg chewable 0-26 [...] 1 [place] mg 00 :00 dose, [facility] 02/05/20 Branch at 1200, Routine lipase-prot 2019-04 Yes 3{capsu 3 capsule, Univers ease-amylas 0-23 le} Oral, TID ity of e (CREON) 14:00: MEALS, [place] 12,000-38,0 00 First dose Me dical 00 -60,000 on [facility] Branch unit 02/05/20 capsule 3 at 0900, capsule Until Discontinu ed, Routine ondansetron 2019-04- No 4mg 4 mg, Univ ers (ZOFRAN) 0- 10-22 Oral, ity of tablet 4 mg 22:30: 22:42 ONCE, 1 [place] 00 :[place] dose, [facility] 02/04/20 Branch at 1730, Routine ondansetron 2019-04 Yes 4mg 4 mg, Unive rs (ZOFRAN) 0-22 Oral, ity of tablet 4 mg 21:25: Q6HPRN, [place] 39 Starting Medical [facility] Branch 02/04/20 at 1625, Until Discontinu ed, Routine, Nausea and Vomiting (N/V) ondansetron 2019-04- No 4mg 4 mg, Slow Univers (ZOFRAN 0-22 10-22 IV Push, ity of (PF)) 15:15: 21:26 Q8HPRN, [place] injection 4 54 :52 Starting Medi brandy mg [facility] Branch 02/04/20 at 1015, Until [facility] 02/04/20 at 1626, Routine, Nausea and Vomiting (N/V) LORazepam 2019-04- No 1mg 1 mg, Univer s (ATIVAN) 0-03 02- Oral, ity of tablet 1 mg 14:30: 23:16 ONCE, 1 [place] 00 :[place] dose, [facility] 02/04/20 Branch at 0930, Routine enoxaparin 2019-04 Yes 40mg 40 mg, Unive rs (LOVENOX) 0-22 Subcutaneo ity of injection 14:00: us, DAILY, [place] 40 mg 00 First dose Medical on [facility] 02/04/20 at 0900, Until Discontinu ed, Routine divalproex 2019-04 Yes 500mg 500 mg, Uni vers (DEPAKOTE) 0-22 Oral, ity of EC tablet 14:00: DAILY, [place] 500 mg 00 First dose Medical on [facility] 02/04/20 at 0900, Until Discontinu ed, Routine pantoprazol 2019-04 Yes 40mg 40 mg, Univ ers e 0-22 Oral, BID, ity of (PROTONIX) 13:00: First dose [place] EC tablet 00 on [facility] 40 mg 02/04/20 Branch at 0800, Until Discontinu ed, Routine lactulose 2019-04 Yes 15mL 15 mL, Univer s (CEPHULAC) 0- Oral, BID, ity of solution 15 13:00: First dose [place] mL 00 (after Medical last Branch modificati on) on [facility] 02/04/20 at 0800, Until Discontinu ed, Routine traMADoL 2019-04 Yes 50mg 50 mg, Univers (ULTRAM) 0-22 Oral, ity of tablet 50 03:22: Q8HPRN, [place] mg 09 Starting Medical [facility] Branch 02/03/20 at 2222, Until Discontinu ed, Routine, Pain (scale 4-6) lactated 2019-04 2020- No 1000mL at 100 Univ ers ringers IV 0-22 10-25 mL/hr, ity of infusion 02:15: 23:20 1,000 mL, [place] 1,000 mL 00 :45 IV Medical Infusion, Branch CONTINUOUS , Starting [facility] 02/03/20 at 2115, Until 02/07/20 at 1820, Routine docusate 2019-04 Yes 100mg 100 mg, Unive rs (COLACE) 0-22 Oral, ity of capsule 100 02:01: BIDPRN, [place] mg 06 Starting Medical [facility] 02/03/20 at 2101, Until Discontinu ed, Routine, Constipati on acetaminoph 2019-04 Yes 650mg 650 mg, Un you en 0 Oral, ity of (TYLENOL) 01:58: Q8HPRN, [place] tablet 650 47 Starting Medic al mg [facility] 02/03/20 at 2058, Until Discontinu ed, Routine, Pain (scale 1-3) ondansetron 2019-04- No 4mg 4 mg, Univ ers (ZOFRAN) 002-03 Oral, ity of tablet 4 mg 01:52: 21:19 Q8HPRN, [place] 29 :27 Starting Medical [facility] 02/03/20 at 205, Until [place] 02/04/20 at 1619, Routine, Nausea and Vomiting (N/V) sennosides 2019-04 Yes 8.6mg 8.6 mg, Uni vers (SENOKOT) Oral, ity of tablet 8.6 16:30: DAILY, [place] mg 00 First dose Medical on [facility] 02/03/20 at 1130, Until Discontinu ed, Routine magnesium 2019-04 Yes 400mg 400 mg, Univ ers oxide Oral, ity of (MAG-OX 16:30: DAILY, [place] 400) tablet 00 First dose Me dical 400 mg on [facility] 02/03/20 at 1130, Until Discontinu ed, Routine docusate 2019-04- No 100mg 100 mg, Univ ers (COLACE) 02-03 Oral, ity of capsule 100 16:30: 02:14 DAILY, [place] mg 00 :35 First dose Medical on [facility] 02/03/20 at 1130, Until Discontinu ed, Routine lactulose 2019-04 2020- No 15mL 15 mL, Unive rs (CEPHULAC) 02-02 Oral, QID, it y of solution 15 03:30: 21:01 First dose [place] mL 00 :02 on [facility] 02/02/20 Branch at 2230, Until Discontinu ed, Routine amLODIPine 2019-04 Yes 10mg 10 mg, Unive rs (NORVASC) 0 Oral, ity of tablet 10 22:30: DAILY, [place] mg 00 First dose Medical on [facility] 02/02/20 at 1730, Until Discontinu ed, Routine [...] [place] mg 00 First dose Medical on [facility] 02/02/20 at 1415, Until Discontinu ed, Routine lipase-prot 2019-04 2020- No 1{capsu 1 capsule, Univers ease-amylas 0-20 10-23 le} Oral, TID it y of e 19:15: 13:49 MEALS, [place] (PANCREAZE) 00 :19 First dose Me dical 16,800-56,8 on [facility] 00- 98,400 02/02/20 unit at 1415, capsule [...] 1 [place] mg 00 :00 dose, [facility] Medical 02/02/20 Branch at 0100, Routine D5W 0.45% 2019-04- No 1000mL at 150 Uni vers NaCl 0-20 10-20 mL/hr, ity of (1/2NS) IV 00:15: 19:02 1,000 mL, [place] infusion 00 :15 IV Medical 1,000 mL Infusion, Branch CONTINUOUS , Starting Sat02/01/20 at 1915, Until Sat02/02/20 at 1402, Routine vancomycin 2019-04- No 15mg/kg 1,250 mg Univers 1250 mg in 020 (rounded ity of NS 250 mL 00:15: [...] 10 mg 41 Q4HPRN, Medical Starting Branch [facility] 02/01/20 at 1545, Until Discontinu ed, STAT, SBP > 180, DBP > 120
Ind ication: Hypertensi ve Emergency NaCl 0.45% 2019-04- No 1000mL at 150 Un you (1/2NS) IV 0-19 10-20 mL/hr, ity of infusion 18:45: 06:44 1,000 mL, [place] 1,000 mL 00 :00 IV Medical Infusion, Branch ONCE, 1 dose, [facility] 02/01/20 at 1345, Routine cyanocobala 2019-04- No 1000ug 1,000 mcg, Univers min 0-19 10-24 Subcutaneo ity of (VITAMIN 15:30: 14:03 [...] IV Medical Infusion, Branch CONTINUOUS , Starting [facility] 02/01/20 at 1030, Until [facility] 02/01/20 at 1238, Routine enoxaparin 2019-04- No 30mg 30 mg, Univ ers (LOVENOX) 0-22 Subcutaneo ity of injection 14:00: 02:09 us, DAILY, [place] 30 mg 00 :34 First dose Medical on [facility] 02/01/20 at 0900, Until Discontinu ed, Routine NaCl 0.9% 2019-04- No 2000mL at 125 Uni vers (NS) IV 0-19 10-19 mL/hr, IV ity of infusion 03:30: 03:17 Infusion, [place] 2,000 mL 00 :00 ONCE, 1 Medical dose, [facility] 01/31/20 at 2230, Routine thiamine 2019-04- No 100mg IV Univers (VITAMIN 0-01-31 Piggyback, ity of B1) 100 mg 22:30: 14:59 DAILY, 2 [place] in NaCl 00 :00 doses, Medical 0.9% (NS) First dose Bran ch piggyback on [place] 01/31/20 at 1730, Last dose on [facility] 02/01/20 at 0900, 50 mL lactated 2019-04- No 1000mL at 125 Univ ers ringers IV 0-18 10-19 mL/hr, ity of infusion 22:30: 02:29 1,000 mL, [place] 1,000 mL 00 :41 IV Medical Infusion, Branch CONTINUOUS , Starting [place] 01/31/20 at 1730, Until [place] 01/31/20 at 2129, Routine NaCl 0.9% 2019-04- No 30mL/kg at 999 Un you (NS) bolus 0-18 10-18 mL/hr, ity of infusion 15:45: 16:04 2,730 mL [place] 2,730 mL 00 :00 (30 mL/kg Medica l ?91 kg), Branch IV Infusion, ONCE, 1 dose, 01/31/20 at [...] ONCE, 1 Medical 50 mcg dose, Fri [place] 12/18/19 at 1845, Routine iohexol 2019-0 2019- No 120mL 120 mL, Unive rs (OMNIPAQUE 12-17 Intravenou it y of 350 22:01: 22:02 s, ONCE, 1 [place] BULK-100 00 :00 dose, Fri Medica l mL) 12/18/19 at [place] injection 1715, 120 mL Routine proMETHazin 2019-0 2019- No 25mg 25 mg, IV Univers e 12-17 Piggyback, ity of (PHENERGAN) 21:30: 20:40 ONCE, 1 [place] 25 mg in 00 :00 dose, Fri Medica l NaCl 0.9% 12/18/19 at Branc h (NS) 50 mL 1630, 50 piggyback mL proMETHazin 2020-0 Yes [id number] 25mg Insert 1 Univers e 12-17 Suppositor ity of (PHENERGAN) 00:00: y [place] 25 mg 00 rectum Medical suppository every 4 Branc h (four) hours as needed for Nausea and Vomiting (N/V). proMETHazin 2020-0 Yes [id number] 25mg Insert 1 Univers e 12-17 Suppositor ity of (PHENERGAN) 00:00: y [place] 25 mg 00 rectum Medical suppository every 4 Branc h (four) hours as needed for Nausea and Vomiting (N/V). proMETHazin 2020-0 Yes [id number] 25mg Insert 1 Univers e 12-17 Suppositor ity of (PHENERGAN) 00:00: y into [place] 25 mg 00 rectum Medical suppository every 4 Branc h (four) hours as needed for Nausea and Vomiting (N/V). proMETHazin 2020-0 Yes [id number] 25mg Insert 1 Univers e 9-04 Suppositor ity of (PHENERGAN) 00:00: y into [place] 25 mg 00 rectum Medical suppository every 4 Branc h (four) hours as needed for Nausea and Vomiting (N/V). proMETHazin 2020-0 Yes [id number] 25mg Insert 1 Univers e 9-04 Suppositor ity of (PHENERGAN) 00:00: y into [place] 25 mg 00 rectum Medical suppository every 4 Branc h (four) hours as needed for Nausea and Vomiting (N/V). proMETHazin 2020-0 Yes [id number] 25mg Insert 1 Univers e 9-04 Suppositor ity of (PHENERGAN) 00:00: y into [place] 25 mg 00 rectum Medical suppository every 4 Branc h (four) hours as needed for Nausea and Vomiting (N/V). proMETHazin 2020-0 Yes [id number] 25mg Insert 1 Univers e 9-04 Suppositor ity of (PHENERGAN) 00:00: y into [place] 25 mg 00 rectum Medical suppository every 4 Branc h (four) hours as needed for Nausea and Vomiting (N/V). proMETHazin 2020-0 Yes [id number] 25mg Insert 1 Univers e 9-04 Suppositor ity of (PHENERGAN) 00:00: y into [place] 25 mg 00 rectum Medical suppository every 4 Branc h (four) hours as needed for Nausea and Vomiting (N/V). proMETHazin 2020-0 Yes [id number] 25mg Insert 1 Univers e 9-04 Suppositor ity of (PHENERGAN) 00:00: y into [place] 25 mg 00 rectum Medical suppository every 4 Branc h (four) hours as needed for Nausea and Vomiting (N/V). proMETHazin 2020-0 Yes [id number] 25mg Insert 1 Univers e 9-04 Suppositor ity of (PHENERGAN) 00:00: y into [place] 25 mg 00 rectum Medical suppository every 4 Branc h (four) hours as needed for Nausea and Vomiting (N/V). proMETHazin 2020-0 Yes [id number] 25mg Insert 1 Univers e 9 Suppositor ity of (PHENERGAN) 00:00: y into [place] 25 mg 00 rectum Medical suppository every 4 Branc h (four) hours as needed for Nausea and Vomiting (N/V). proMETHazin 2020-0 Yes [id number] 25mg Insert 1 Univers e 9 Suppositor ity of (PHENERGAN) 00:00: y into [place] 25 mg 00 rectum Medical suppository every 4 Branc h (four) hours as needed for Nausea and Vomiting (N/V). proMETHazin 2020-0 Yes [id number] 25mg Insert 1 Univers e 9 Suppositor ity of (PHENERGAN) 00:00: y into [place] 25 mg 00 rectum Medical suppository every 4 Branc h (four) hours as needed for Nausea and Vomiting (N/V). proMETHazin 2020-0 Yes [id number] 25mg Insert 1 Univers e 9 Suppositor ity of (PHENERGAN) 00:00: y into [place] 25 mg 00 rectum Medical suppository every 4 Branc h (four) hours as needed for Nausea and Vomiting (N/V). proMETHazin 2020-0 Yes [id number] 25mg Insert 1 [facility] e 12-17 Suppositor ity of (PHENERGAN) 00:00: [place] 25 mg 00 rectum Medical suppository every 4 Branc h (four) hours as needed for Nausea and Vomiting (N/V). proMETHazin 2020-0 Yes [id number] 25mg Insert 1 [facility] e 9 Suppositor ity of (PHENERGAN) 00:00: [place] 25 mg 00 rectum Medical suppository every 4 Branc h (four) hours as needed for Nausea and Vomiting (N/V). proMETHazin 2020-0 Yes [id number] 25mg Insert 1 [facility] e 904 Suppositor ity of (PHENERGAN) 00:00: y [place] 25 mg 00 rectum Medical suppository every 4 Branc h (four) hours as needed for Nausea and Vomiting (N/V). proMETHazin 2020-0 Yes [id number] 25mg Insert 1 [facility] e 9 Suppositor ity of (PHENERGAN) 00:00: y [place] 25 mg 00 rectum Medical suppository every 4 Branc h (four) hours as needed for Nausea and Vomiting (N/V). proMETHazin 2020-0 Yes [id number] 25mg Insert 1 [facility] e 12-17 Suppositor ity of (PHENERGAN) 00:00: [place] 25 mg 00 rectum Medical suppository every 4 Branc h (four) hours as needed for Nausea and Vomiting (N/V). proMETHazin 2019-2020- No [id number] 25mg Insert 1 [facility] e 12-17-05 Suppositor ity of (PHENERGAN) 00:00: 00:00 y into [place] 25 mg 00 :00 rectum Medical suppository every 4 Branc h (four) hours as needed for Nausea and Vomiting (N/V). proMETHazin 2019-2020- No [id number] 25mg Insert 1 [facility] e 12-17-05 Suppositor ity of (PHENERGAN) 00:00: 00:00 y into [place] 25 mg 00 :00 rectum Medical suppository every 4 Branc h (four) hours as needed for Nausea and Vomiting (N/V). Chlorhexidi Chlorhexidi 2019- 2020- No Na [place] 15 ML Common ne ne 10-05 06-30 sw[facility] Gluconate Gluconate 00:00: 00:00 spit - [facility] 00 :00 [facility] cloNIDine 2019-2019- No .2mg 0.2 mg, Univ ers (CATAPRES) 08-21-09 Oral, ity of tablet 0.2 05:00: 04:00 ONCE, 1 [place] mg 00 :00 dose, Sat Medical 08/22/19 at Branch 0000, STAT ondansetron 2019-2019- No 4mg 4 mg, Slow Univers (ZOFRAN 08-21 IV Push, ity of (PF)) 04:15: 03:15 ONCE, 1 [place] injection 4 00 :00 dose, Fri Med ical mg 08/21/19 at Branch 2315, [place] FENTanyl PF 2019- No 50ug 50 mcg, Un you (SUBLIMAZE 5-09 05-09 Slow IV ity o f (PF)) 04:15: 03:15 Push, [place] injection 00 :00 ONCE, 1 Medical 50 mcg dose, Fri Branch 08/21/19 at 2315, Routine benzonatate 2020-0 2020- No 200mg 200 mg, U nivers (TESSALON 08-21 05-09 Oral, ONCE ity of PERLES) 04:15: 03:15 NOW, 1 [place] capsule 200 00 :00 dose, Sat Med ical mg 08/21/19 at Branch 2315, Routine Nitrofurant 2020-0 Yes [id number] 100mg Take 1 [facility] oin&Nit. 5-08 capsule by ity o f Macrocryst 00:00: mouth 2 [place] (MACROBID) 00 (two) Medical 100 mg times Branch capsule daily. benzonatate 2020-0 Yes [id number] 200mg Take 1 [facility] 200 mg 5-08 capsule by ity of capsule 00:00: mouth 3 [place] 00 (three) Medical times Branch daily as needed for Cough. ondansetron 2020-0 Yes [id number] 4mg Take 1 [facility] (ZOFRAN) 4 5-08 tablet by ity of mg tablet 00:00: mouth [place] 00 every 8 Medical (eight) Branch hours as needed for Nausea and Vomiting (N/V). traMADol 2020-0 Yes [id number] 50mg Take 1 Uni vers (ULTRAM) 50 5-08 tablet by ity of mg tablet 00:00: mouth [place] 00 every 6 Medical (six) Branch hours as needed for Pain (scale 7-10). albuterol 2020-0 Yes [id number] 2{puff} Inhale 2 [facility] 90 5-08 Puffs ity of mcg/actuati 00:00: every 4 [place] on inhaler 00 (four) Medical hours as Branch needed for Wheezing, Shortness of Breath, Bronchospa sm or Chest tightness. benzonatate 2020-0 Yes [id number] 200mg Take 1 [facility] 200 mg 5-08 capsule by ity of capsule 00:00: mouth 3 [place] 00 (three) Medical times Branch daily as needed for Cough. ondansetron 2020-0 Yes [id number] 4mg Take 1 [facility] (ZOFRAN) 4 5-08 tablet by ity of mg tablet 00:00: mouth [place] 00 every 8 Medical (eight) Branch hours as needed for Nausea and Vomiting (N/V). traMADol 2020-0 Yes [id number] 50mg Take 1 Uni vers (ULTRAM) 50 5-08 tablet by ity of mg tablet 00:00: mouth [place] 00 every 6 Medical (six) Branch hours as needed for Pain (scale 7-10). albuterol 2020-0 Yes [id number] 2{puff} Inhale 2 [facility] 90 5-08 Puffs ity of mcg/actuati 00:00: every 4 [place] on inhaler 00 (four) Medical hours as Branch needed for Wheezing, Shortness of Breath, Bronchospa sm or Chest tightness. benzonatate 2020-0 Yes [id number] 200mg Take 1 [facility] 200 mg 5-08 capsule by ity of capsule 00:00: mouth 3 [place] 00 (three) Medical times Branch daily as needed for Cough. ondansetron 2020-0 Yes [id number] 4mg Take 1 [facility] (ZOFRAN) 4 5-08 tablet by ity of mg tablet 00:00: mouth [place] 00 every 8 Medical (eight) Branch hours as needed for Nausea and Vomiting (N/V). traMADol 2020-0 Yes [id number] 50mg Take 1 Uni vers (ULTRAM) 50 5-08 tablet by ity of mg tablet 00:00: mouth [place] 00 every 6 Medical (six) Branch hours as needed for Pain (scale 7-10). albuterol 2020-0 Yes [id number] 2{puff} Inhale 2 [facility] 90 5-08 Puffs ity of mcg/actuati 00:00: every 4 [place] on inhaler 00 (four) Medical hours as Branch needed for Wheezing, Shortness of Breath, Bronchospa sm or Chest tightness. benzonatate 2020-0 Yes [id number] 200mg Take 1 [facility] 200 mg 5-08 capsule by ity of capsule 00:00: mouth 3 [place] 00 (three) Medical times Branch daily as needed for Cough. ondansetron 2020-0 Yes [id number] 4mg Take 1 [facility] (ZOFRAN) 4 5-08 tablet by ity of mg tablet 00:00: mouth [place] 00 every 8 Medical (eight) Branch hours as needed for Nausea and Vomiting (N/V). traMADol 2020-0 Yes [id number] 50mg Take 1 Uni vers (ULTRAM) 50 5-08 tablet by ity of mg tablet 00:00: mouth [place] 00 every 6 Medical (six) Branch hours as needed for Pain (scale 7-10). albuterol 2020-0 Yes [id number] 2{puff} Inhale 2 [facility] 90 5-08 Puffs ity of mcg/actuati 00:00: every 4 [place] on inhaler 00 (four) Medical hours as Branch needed for Wheezing, Shortness of Breath, Bronchospa sm or Chest tightness. benzonatate 2020-0 Yes [id number] 200mg Take 1 [facility] 200 mg 5-08 capsule by ity of capsule 00:00: mouth 3 [place] 00 (three) Medical times Branch daily as needed for Cough. ondansetron 2020-0 Yes [id number] 4mg Take 1 [facility] (ZOFRAN) 4 5-08 tablet by ity of mg tablet 00:00: mouth [place] 00 every 8 Medical (eight) Branch hours as needed for Nausea and Vomiting (N/V). traMADol 2020-0 Yes [id number] 50mg Take 1 Uni vers (ULTRAM) 50 5-08 tablet by ity of mg tablet 00:00: mouth [place] 00 every 6 Medical (six) Branch hours as needed for Pain (scale 7-10). albuterol 2020-0 Yes [id number] 2{puff} Inhale 2 [facility] 90 5-08 Puffs ity of mcg/actuati 00:00: every 4 [place] on inhaler 00 (four) Medical hours as Branch needed for Wheezing, Shortness of Breath, Bronchospa sm or Chest tightness. benzonatate 2020-0 Yes [id number] 200mg Take 1 [facility] 200 mg 5-08 capsule by ity of capsule 00:00: mouth 3 (three) Medical times Branch daily as needed for Cough. ondansetron 2020-0 Yes [id number] 4mg Take 1 [facility] (ZOFRAN) 4 5-08 tablet by ity of mg tablet 00:00: mouth [place] 00 every 8 Medical (eight) Branch hours as needed for Nausea and Vomiting (N/V). traMADol 2020-0 Yes [id number] 50mg Take 1 Uni vers (ULTRAM) 50 5-08 tablet by ity of mg tablet 00:00: mouth [place] 00 every 6 Medical (six) Branch hours as needed for Pain (scale 7-10). albuterol 2020-0 Yes [id number] 2{puff} Inhale 2 [facility] 90 5-08 Puffs ity of mcg/actuati 00:00: every 4 [place] on inhaler 00 (four) Medical hours as Branch needed for Wheezing, Shortness of Breath, Bronchospa sm or Chest tightness. benzonatate 2020-0 Yes [id number] 200mg Take 1 [facility] 200 mg 5-08 capsule by ity of capsule 00:00: mouth 3 [place] 00 (three) Medical times Branch daily as needed for Cough. ondansetron 2020-0 Yes [id number] 4mg Take 1 [facility] (ZOFRAN) 4 5-08 tablet by ity of mg tablet 00:00: mouth [place] 00 every 8 Medical (eight) Branch hours as needed for Nausea and Vomiting (N/V). traMADol 2020-0 Yes [id number] 50mg Take 1 Uni vers (ULTRAM) 50 5-08 tablet by ity of mg tablet 00:00: mouth [place] 00 every 6 Medical (six) Branch hours as needed for Pain (scale 7-10). albuterol 2020-0 Yes [id number] 2{puff} Inhale 2 [facility] 90 5-08 Puffs ity of mcg/actuati 00:00: every 4 [place] on inhaler 00 (four) Medical hours as Branch needed for Wheezing, Shortness of Breath, Bronchospa sm or Chest tightness. benzonatate 2020-0 Yes [id number] 200mg Take 1 [facility] 200 mg 5-08 capsule by ity of capsule 00:00: mouth 3 [place] 00 (three) Medical times Branch daily as needed for Cough. ondansetron 2020-0 Yes [id number] 4mg Take 1 [facility] (ZOFRAN) 4 5-08 tablet by ity of mg tablet 00:00: mouth [place] 00 every 8 Medical (eight) Branch hours as needed for Nausea and Vomiting (N/V). traMADol 2020-0 Yes [id number] 50mg Take 1 Uni vers (ULTRAM) 50 5-08 tablet by ity of mg tablet 00:00: mouth [place] 00 every 6 Medical (six) Branch hours as needed for Pain (scale 7-10). albuterol 2020-0 Yes [id number] 2{puff} Inhale 2 [facility] 90 5-08 Puffs ity of mcg/actuati 00:00: every 4 [place] on inhaler 00 (four) Medical hours as Branch needed for Wheezing, Shortness of Breath, Bronchospa sm or Chest tightness. benzonatate 2020-0 Yes [id number] 200mg Take 1 [facility] 200 mg 5-08 capsule by ity of capsule 00:00: mouth 3 [place] 00 (three) Medical times Branch daily as needed for Cough. ondansetron 2020-0 Yes [id number] 4mg Take 1 [facility] (ZOFRAN) 4 5-08 tablet by ity of mg tablet 00:00: mouth [place] 00 every 8 Medical (eight) Branch hours as needed for Nausea and Vomiting (N/V). traMADol 2020-0 Yes [id number] 50mg Take 1 Uni vers (ULTRAM) 50 5-08 tablet by ity of mg tablet 00:00: mouth [place] 00 every 6 Medical (six) Branch hours as needed for Pain (scale 7-10). albuterol 2020-0 Yes [id number] 2{puff} Inhale 2 [facility] 90 5-08 Puffs ity of mcg/actuati 00:00: every 4 [place] on inhaler 00 (four) Medical hours as Branch needed for Wheezing, Shortness of Breath, Bronchospa sm or Chest tightness. benzonatate 2020-0 Yes [id number] 200mg Take 1 [facility] 200 mg 5-08 capsule by ity of capsule 00:00: mouth 00 (three) Medical times Branch daily as needed for Cough. ondansetron 2020-0 Yes [id number] 4mg Take 1 Univers (ZOFRAN) 4 5-08 tablet by ity of mg tablet 00:00: mouth [place] 00 every 8 Medical (eight) Branch hours as needed for Nausea and Vomiting (N/V). traMADol 2020-0 Yes [id number] 50mg Take 1 Uni vers (ULTRAM) 50 5-08 tablet by ity of mg tablet 00:00: mouth [place] 00 every 6 Medical (six) Branch hours as needed for Pain (scale 7-10). albuterol 2020-0 Yes [id number] 2{puff} Inhale 2 [facility] 90 5-08 Puffs ity of mcg/actuati 00:00: every 4 [place] on inhaler 00 (four) Medical hours as Branch needed for Wheezing, Shortness of Breath, Bronchospa sm or Chest tightness. benzonatate 2020-0 Yes [id number] 200mg Take 1 [facility] 200 mg 5-08 capsule by ity of capsule 00:00: mouth 3 [place] 00 (three) Medical times Branch daily as needed for Cough. ondansetron 2020-0 Yes [id number] 4mg Take 1 [facility] (ZOFRAN) 4 5-08 tablet by ity of mg tablet 00:00: mouth [place] 00 every 8 Medical (eight) Branch hours as needed for Nausea and Vomiting (N/V). traMADol 2020-0 Yes [id number] 50mg Take 1 Uni vers (ULTRAM) 50 5-08 tablet by ity of mg tablet 00:00: mouth [place] 00 every 6 Medical (six) Branch hours as needed for Pain (scale 7-10). albuterol 2020-0 Yes [id number] 2{puff} Inhale 2 [facility] 90 5-08 Puffs ity of mcg/actuati 00:00: every 4 [place] on inhaler 00 (four) Medical hours as Branch needed for Wheezing, Shortness of Breath, Bronchospa sm or Chest tightness. benzonatate 2020-0 Yes [id number] 200mg Take 1 [facility] 200 mg 5-08 capsule by ity of capsule 00:00: mouth (three) Medical times Branch daily as needed for Cough. ondansetron 2020-0 Yes [id number] 4mg Take 1 [facility] (ZOFRAN) 4 5-08 tablet by ity of mg tablet 00:00: mouth [place] 00 every 8 Medical (eight) Branch hours as needed for Nausea and Vomiting (N/V). traMADol 2020-0 Yes [id number] 50mg Take 1 Uni vers (ULTRAM) 50 5-08 tablet by ity of mg tablet 00:00: mouth [place] 00 every 6 Medical (six) Branch hours as needed for Pain (scale 7-10). albuterol 2020-0 Yes [id number] 2{puff} Inhale 2 [facility] 90 5-08 Puffs ity of mcg/actuati 00:00: every 4 [place] on inhaler 00 (four) Medical hours as Branch needed for Wheezing, Shortness of Breath, Bronchospa sm or Chest tightness. benzonatate 2020-0 Yes [id number] 200mg Take 1 [facility] 200 mg 5-08 capsule by ity of capsule 00:00: mouth 3 [place] (three) Medical times Branch daily as needed for Cough. ondansetron 2020-0 Yes [id number] 4mg Take 1 [facility] (ZOFRAN) 4 5-08 tablet by ity of mg tablet 00:00: mouth [place] 00 every 8 Medical (eight) Branch hours as needed for Nausea and Vomiting (N/V). traMADol 2020-0 Yes [id number] 50mg Take 1 Uni vers (ULTRAM) 50 5-08 tablet by ity of mg tablet 00:00: mouth [place] 00 every 6 Medical (six) Branch hours as needed for Pain (scale 7-10). albuterol 2020-0 Yes [id number] 2{puff} Inhale 2 [facility] 90 5-08 Puffs ity of mcg/actuati 00:00: every 4 [place] on inhaler 00 (four) Medical hours as Branch needed for Wheezing, Shortness of Breath, Bronchospa sm or Chest tightness. benzonatate 2020-0 Yes [id number] 200mg Take 1 [facility] 200 mg 5-08 capsule by ity of capsule 00:00: mouth 3 [place] 00 (three) Medical times Branch daily as needed for Cough. ondansetron 2020-0 Yes [id number] 4mg Take 1 [facility] (ZOFRAN) 4 5-08 tablet by ity of mg tablet 00:00: mouth [place] 00 every 8 Medical (eight) Branch hours as needed for Nausea and Vomiting (N/V). traMADol 2020-0 Yes [id number] 50mg Take 1 Uni vers (ULTRAM) 50 5-08 tablet by ity of mg tablet 00:00: mouth [place] 00 every 6 Medical (six) Branch hours as needed for Pain (scale 7-10). albuterol 2020-0 Yes [id number] 2{puff} Inhale 2 [facility] 90 5-08 Puffs ity of mcg/actuati 00:00: every 4 [place] on inhaler 00 (four) Medical hours as Branch needed for Wheezing, Shortness of Breath, Bronchospa sm or Chest tightness. benzonatate 2020-0 Yes [id number] 200mg Take 1 [facility] 200 mg 5-08 capsule by ity of capsule 00:00: mouth 3 [place] 00 (three) Medical times Branch daily as needed for Cough. ondansetron 2020-0 Yes [id number] 4mg Take 1 [facility] (ZOFRAN) 4 5-08 tablet by ity of mg tablet 00:00: mouth [place] 00 every 8 Medical (eight) Branch hours as needed for Nausea and Vomiting (N/V). traMADol 2020-0 Yes [id number] 50mg Take 1 Uni vers (ULTRAM) 50 5-08 tablet by ity of mg tablet 00:00: mouth [place] 00 every 6 Medical (six) Branch hours as needed for Pain (scale 7-10). albuterol 2020-0 Yes [id number] 2{puff} Inhale 2 [facility] 90 5-08 Puffs ity of mcg/actuati 00:00: every 4 [place] on inhaler 00 (four) Medical hours as Branch needed for Wheezing, Shortness of Breath, Bronchospa sm or Chest tightness. benzonatate 2020-0 Yes [id number] 200mg Take 1 [facility] 200 mg 5-08 capsule by ity of capsule 00:00: mouth 3 [place] 00 (three) Medical times Branch daily as needed for Cough. ondansetron 2020-0 Yes [id number] 4mg Take 1 [facility] (ZOFRAN) 4 5-08 tablet by ity of mg tablet 00:00: mouth [place] 00 every 8 Medical (eight) Branch hours as needed for Nausea and Vomiting (N/V). traMADol 2020-0 Yes [id number] 50mg Take 1 Uni vers (ULTRAM) 50 5-08 tablet by ity of mg tablet 00:00: mouth [place] 00 every 6 Medical (six) Branch hours as needed for Pain (scale 7-10). albuterol 2020-0 Yes [id number] 2{puff} Inhale 2 [facility] 90 5-08 Puffs ity of mcg/actuati 00:00: every 4 [place] on inhaler 00 (four) Medical hours as Branch needed for Wheezing, Shortness of Breath, Bronchospa sm or Chest tightness. benzonatate 2020-0 Yes [id number] 200mg Take 1 [facility] 200 mg 5-08 capsule by ity of capsule 00:00: mouth 3 [place] 00 (three) Medical times Branch daily as needed for Cough. ondansetron 2020-0 Yes [id number] 4mg Take 1 [facility] (ZOFRAN) 4 5-08 tablet by ity of mg tablet 00:00: mouth [place] 00 every 8 Medical (eight) Branch hours as needed for Nausea and Vomiting (N/V). traMADol 2020-0 Yes [id number] 50mg Take 1 Uni vers (ULTRAM) 50 5-08 tablet by ity of mg tablet 00:00: mouth [place] 00 every 6 Medical (six) Branch hours as needed for Pain (scale 7-10). albuterol 2020-0 Yes [id number] 2{puff} Inhale 2 [facility] 90 5-08 Puffs ity of mcg/actuati 00:00: every 4 [place] on inhaler 00 (four) Medical hours as Branch needed for Wheezing, Shortness of Breath, Bronchospa sm or Chest tightness. benzonatate 2020-0 Yes [id number] 200mg Take 1 [facility] 200 mg 5-08 capsule by ity of capsule 00:00: mouth 3 [place] 00 (three) Medical times Branch daily as needed for Cough. ondansetron 2020-0 Yes [id number] 4mg Take 1 Univers (ZOFRAN) 4 5-08 tablet by ity of mg tablet 00:00: mouth [place] 00 every 8 Medical (eight) Branch hours as needed for Nausea and Vomiting (N/V). traMADol 2020-0 Yes [id number] 50mg Take 1 Uni vers (ULTRAM) 50 5-08 tablet by ity of mg tablet 00:00: mouth [place] 00 every 6 Medical (six) Branch hours as needed for Pain (scale 7-10). albuterol 2020-0 Yes [id number] 2{puff} Inhale 2 [facility] 90 5-08 Puffs ity of mcg/actuati 00:00: every 4 [place] on inhaler 00 (four) Medical hours as Branch needed for Wheezing, Shortness of Breath, Bronchospa sm or Chest tightness. benzonatate 2020-0 Yes [id number] 200mg Take 1 [facility] 200 mg 5-08 capsule by ity of capsule 00:00: mouth 3 [place] 00 (three) Medical times Branch daily as needed for Cough. ondansetron 2020-0 Yes [id number] 4mg Take 1 [facility] (ZOFRAN) 4 5-08 tablet by ity of mg tablet 00:00: mouth [place] 00 every 8 Medical (eight) Branch hours as needed for Nausea and Vomiting (N/V). traMADol 2020-0 Yes [id number] 50mg Take 1 Uni vers (ULTRAM) 50 5-08 tablet by ity of mg tablet 00:00: mouth [place] 00 every 6 Medical (six) Branch hours as needed for Pain (scale 7-10). albuterol 2020-0 Yes [id number] 2{puff} Inhale 2 [facility] 90 5-08 Puffs ity of mcg/actuati 00:00: every 4 [place] on inhaler 00 (four) Medical hours as Branch needed for Wheezing, Shortness of Breath, Bronchospa sm or Chest tightness. ondansetron 2020-0 Yes [id number] 4mg Take 1 [facility] (ZOFRAN) 4 5-08 tablet by ity of mg tablet 00:00: mouth [place] 00 every 8 Medical (eight) Branch hours as needed for Nausea and Vomiting (N/V). ondansetron 2020-0 Yes [id number] 4mg Take 1 Univers (ZOFRAN) 4 5-08 tablet by ity of mg tablet 00:00: mouth [place] 00 every 8 Medical (eight) Branch hours as needed for Nausea and Vomiting (N/V). ondansetron 2020-0 Yes [id number] 4mg Take 1 Univers (ZOFRAN) 4 5-08 tablet by ity of mg tablet 00:00: mouth [place] 00 every 8 Medical (eight) Branch hours as needed for Nausea and Vomiting (N/V). ondansetron 2020-0 Yes [id number] 4mg Take 1 Univers (ZOFRAN) 4 5-08 tablet by ity of mg tablet 00:00: mouth [place] 00 every 8 Medical (eight) Branch hours as needed for Nausea and Vomiting (N/V). Nitrofurant 2020-0 Yes [id number] 100mg Take 1 [facility] oin&Nit. 5-08 capsule by ity o f Macrocryst 00:00: mouth 2 [place] (MACROBID) 00 (two) Medical 100 mg times Branch capsule daily. benzonatate 2020-0 Yes [id number] 200mg Take 1 [facility] 200 mg 5-08 capsule by ity of capsule 00:00: mouth 3 [place] 00 (three) Medical times Branch daily as needed for Cough. ondansetron 2020-0 Yes [id number] 4mg Take 1 [facility] (ZOFRAN) 4 5-08 tablet by ity of mg tablet 00:00: mouth [place] 00 every 8 Medical (eight) Branch hours as needed for Nausea and Vomiting (N/V). traMADol 2020-0 Yes [id number] 50mg Take 1 Uni vers (ULTRAM) 50 5-08 tablet by ity of mg tablet 00:00: mouth [place] 00 every 6 Medical (six) Branch hours as needed for Pain (scale 7-10). albuterol 2020-0 Yes [id number] 2{puff} Inhale 2 [facility] 90 5-08 Puffs ity of mcg/actuati 00:00: every 4 [place] on inhaler 00 (four) Medical hours as Branch needed for Wheezing, Shortness of Breath, Bronchospa sm or Chest tightness. ondansetron 2020- No [id number] 4mg Take 1 Univers (ZOFRAN) 4 5-08 06-30 tablet by ity of mg tablet 00:00: 00:00 mouth [place] 00 :00 every 8 Medical (eight) Branch hours as needed for Nausea and Vomiting (N/V). benzonatate 2020- No [id number] 200mg Take 1 [facility] 200 mg 5-08 04-05 capsule by ity of capsule 00:00: 00:00 mouth 3 [place] 00 :00 (three) Medical times Branch daily as needed for Cough. traMADol 2020- No [id number] 50mg Take 1 Un you (ULTRAM) 50 5-08 04-05 tablet by it y of mg tablet 00:00: 00:00 mouth [place] 00 :00 every 6 Medical (six) Branch hours as needed for Pain (scale 7-10). albuterol 2020- No [id number] 2{puff} Inhale 2 [facility] 90 5-08 04-05 Puffs ity of mcg/actuati 00:00: 00:00 every 4 [place] on inhaler 00 :00 (four) Medical hours as Branch needed for Wheezing, Shortness of Breath, Bronchospa sm or Chest tightness. benzonatate 2020- No [id number] 200mg Take 1 [facility] 200 mg 5-08 04-05 capsule by ity of capsule 00:00: 00:00 mouth 3 [place] 00 :00 (three) Medical times Branch daily as needed for Cough. traMADol 2020- No [id number] 50mg Take 1 Un you (ULTRAM) 50 5-08 04-05 tablet by it y of mg tablet 00:00: 00:00 mouth [place] 00 :00 every 6 Medical (six) Branch hours as needed for Pain (scale 7-10). albuterol 2020- No [id number] 2{puff} Inhale 2 [facility] 90 5-08 04-05 Puffs ity of mcg/actuati 00:00: 00:00 every 4 [place] on inhaler 00 :00 (four) Medical hours as Branch needed for Wheezing, Shortness of Breath, Bronchospa sm or Chest tightness. Nitrofurant 2019-0 2020- No [id number] 100mg Take 1 [facility] oin&Nit. 08-20 capsule by ity of Macrocryst 00:00: 00:00 mouth 2 [place] (MACROBID) 00 :00 (two) Medical 100 mg times Branch capsule daily. HYDROcodone 2019-0 2020- No 1{tbl} 1 tablet, Univers -acetaminop 06-25 Oral, ONCE i ty of hen (NORCO) 01:15: 00:22 NOW, 1 [place] 10-325 mg 00 :00 dose, [place] Medic al tablet 1 06/25/19 at [facility] h tablet 2014, [place] dicyclomine 2019- [...] mg 00 :00 NOW, 1 Medical dose, [facility] Branch 06/25/19 at 1945, [place] metoclopram 2019- No 10mg 10 mg, Uni vers selena HCl 06-24 Slow IV ity of (REGLAN) 23:45: 22:48 Push, [place] injection 00 :00 ONCE, 1 Medical 10 mg dose, [facility] 06/25/19 at 1845, [place] ketorolac 2019-2019- No 30mg 30 mg, Unive rs (TORADOL) 06-24 Slow IV ity of injection 23:45: 22:49 Push, [place] 30 mg 00 :00 ONCE, 1 Medical dose, [facility] Branch 06/25/19 at 1845, [place]
Fa culty member approving Restricted medication : KIRSTIN RON NaCl 0.9% 2019- 2020- No 1000mL at 999 Uni vers (NS) bolus 3-12 03-13 mL/hr, ity of infusion 22:45: 01:01 1,000 mL, [place] 1,000 mL 00 :00 IV Medical Infusion, [place] ONCE, 1 dose, [place] 06/25/19 at 1745, [place] maalox:diph 2020-0 2020- No 15mL 15 mL, Uni vers enhydrAMINE 06-24 Oral, ity of :lidocaine 22:45: 22:52 ONCE, 1 [place] 2 % viscous 00 :00 dose, [place] Med ical 1:1:1 06/25/19 at [place] [facility] oral suspension 15 mL morpHINE 2020-0 2020- No 4mg 4 mg, Slow Un you injection 4 06-19 IV Push, ity of mg 01:00: 00:10 ONCE, 1 [place] 00 :00 dose, Fri Medical 06/19/19 at [place] 1900, STAT maalox:diph 2020-0 2020- No 15mL 15 mL, Uni vers enhydrAMINE 06-19 Oral, ity of :lidocaine 01:00: 00:10 ONCE, 1 [place] 2 % viscous 00 :00 dose, Fri Med ical 1:1:1 06/19/19 at [place] ([facility] 190, [facility]) Routine oral suspension 15 mL famotidine 2020-0 2020- No 20mg 20 mg, [facility] (PEPCID 06-18- Slow IV ity of (PF)) 22:30: 21:40 Push, [place] injection 00 :00 ONCE, 1 Medical 20 mg dose, Fri [place] 06/19/19 at 1630, [place] proMETHazin 2020-0 2020- No 12.5mg 12.5 mg, Univers e 06-18- IV ity of (PHENERGAN) 22:30: 21:40 [place], [place] 12.5 mg in 00 :00 ONCE, 1 Medica l NaCl 0.9% dose, Fri Bran h (NS) 50 mL 06/19/19 at piggyback 1630, 50 mL morpHINE 2020-0 2020- No 4mg 4 mg, Slow Un you injection 4 06-18- IV Push, ity of mg 22:30: 21:40 ONCE, 1 [place] 00 :00 dose, Fri Medical 06/19/19 at Branch 1630, STAT NaCl 0.9% 2019-0 2020- No 1000mL at 999 Uni vers (NS) bolus 3-06 03-06 mL/hr, ity of infusion 21:30: 23:56 1,000 mL, [place] 1,000 mL 00 :00 IV Medical Infusion, Branch ONCE, 1 dose, 06/19/19 at 1530, [place] ondansetron 2020-0 Yes [id number] 8mg Take 2 Univers 4 mg 3-06 tablets by ity of disintegrat 00:00: mouth [place] ing tablet 00 every 8 Medica l (eight) Branch hours as needed for Nausea and Vomiting (N/V). ondansetron 2020-0 Yes [id number] 8mg Take 2 Univers 4 mg 3-06 tablets by ity of disintegrat 00:00: mouth [place] ing tablet 00 every 8 Medica l (eight) Branch hours as needed for Nausea and Vomiting (N/V). ondansetron 2020-0 Yes [id number] 8mg Take 2 [facility] 4 mg 3-06 tablets by ity of disintegrat 00:00: mouth [place] ing tablet 00 every 8 Medica l (eight) Branch hours as needed for Nausea and Vomiting (N/V). ondansetron 2020-0 Yes [id number] 8mg Take 2 [facility] 4 mg 3-06 tablets by ity of disintegrat 00:00: mouth [place] ing tablet 00 every 8 Medica l (eight) Branch hours as needed for Nausea and Vomiting (N/V). ondansetron 2020-0 2020- No [id number] 8mg Take 2 [facility] 4 mg 3-06 10-26 tablets by ity of disintegrat 00:00: 00:00 [place] tablet 00 :00 every 8 Medica l (eight) Branch hours as needed for Nausea and Vomiting (N/V). famotidine 2020-0 2020- No [id number] 40mg Take 1 [facility] (PEPCID) 40 3-06 04-06 tablet by it y of mg tablet 00:00: 04:59 mouth [place] 00 :00 daily for Medical 30 days. [place] famotidine 2020-0 2020- No [id number] 40mg Take 1 [facility] (PEPCID) 40 3-06 04-06 tablet by it y of mg tablet 00:00: 04:59 mouth [place] 00 :00 daily for Medical 30 days. Branch morpHINE 2020-0 2020- No 4mg 4 mg, Slow Un you injection 4 05-20-05 IV Push, ity of mg 04:15: 03:09 ONCE, 1 [place] 00 :00 dose, [facility] Medical 05/19/19 at Branch 2215, STAT iohexol 2020-0 2020- No 120mL 120 mL, Unive rs (OMNIPAQUE 05-20 Intravenou it y of 350 02:15: 02:15 s, ONCE, 1 [place] BULK-150 00 :00 dose, Tue Medica l mL) 05/19/19 at Branch injection 2014, 120 mL Routine ondansetron 2020-0 2020- No 4mg 4 mg, Slow [facility] (ZOFRAN 05-20 IV Push, ity of (PF)) 02:15: 01:25 ONCE, 1 [place] injection 4 00 :00 dose, Tue Med ical mg 05/19/19 at Branch 2014, Routine morpHINE 2020-0 2020- No 4mg 4 mg, Slow Un you injection 4 05-20 IV Push, ity of mg 02:15: 01:25 ONCE, 1 00 :00 dose, [facility] Medical 05/19/19 at Branch 2014, STAT traMADol 2020-0 Yes [id number] 100mg Take 1 Un you 100 mg 24 2-04 tablet by ity o f hr tablet 00:00: mouth [place] 00 daily. Medical Branch ondansetron 2020-0 Yes [id number] 4mg Take 1 [facility] 4 mg 2-04 tablet by ity of disintegrat 00:00: mouth [place] ing tablet 00 every 8 Medica l (eight) Branch hours as needed for Nausea and Vomiting (N/V). ondansetron 2020-0 Yes [id number] 4mg Take 1 [facility] 4 mg 2-04 tablet by ity of disintegrat 00:00: mouth [place] ing tablet 00 every 8 Medica l (eight) Branch hours as needed for Nausea and Vomiting (N/V). ondansetron 2020-0 Yes [id number] 4mg Take 1 [facility] 4 mg 2-04 tablet by ity of disintegrat 00:00: mouth [place] ing tablet 00 every 8 Medica l (eight) Branch hours as needed for Nausea and Vomiting (N/V). ondansetron 2020-0 Yes [id number] 4mg Take 1 [facility] 4 mg 2-04 tablet by ity of disintegrat 00:00: mouth [place] ing tablet 00 every 8 Medica l (eight) Branch hours as needed for Nausea and Vomiting (N/V). ondansetron 2020-0 Yes [id number] 4mg Take 1 [facility] 4 mg 2-04 tablet by ity of disintegrat 00:00: mouth [place] ing tablet 00 every 8 Medica l (eight) Branch hours as needed for Nausea and Vomiting (N/V). ondansetron 2020-0 Yes [id number] 4mg Take 1 [facility] 4 mg 2-04 tablet by ity of disintegrat 00:00: mouth [place] ing tablet 00 every 8 Medica l (eight) Branch hours as needed for Nausea and Vomiting (N/V). ondansetron 2020-0 Yes [id number] 4mg Take 1 [facility] 4 mg 2-04 tablet by ity of disintegrat 00:00: mouth [place] ing tablet 00 every 8 Medica l (eight) Branch hours as needed for Nausea and Vomiting (N/V). ondansetron 2020-0 Yes [id number] 4mg Take 1 [facility] 4 mg 2-04 tablet by ity of disintegrat 00:00: mouth [place] ing tablet 00 every 8 Medica l (eight) Branch hours as needed for Nausea and Vomiting (N/V). ondansetron 2020-0 Yes [id number] 4mg Take 1 [facility] 4 mg 2-04 tablet by ity of disintegrat 00:00: mouth [place] ing tablet 00 every 8 Medica l (eight) Branch hours as needed for Nausea and Vomiting (N/V). ondansetron 2020-0 Yes [id number] 4mg Take 1 [facility] 4 mg 2-04 tablet by ity of disintegrat 00:00: mouth [place] ing tablet 00 every 8 Medica l (eight) Branch hours as needed for Nausea and Vomiting (N/V). ondansetron 2020-0 Yes [id number] 4mg Take 1 [facility] 4 mg 2-04 tablet by ity of disintegrat 00:00: mouth [place] ing tablet 00 every 8 Medica l (eight) Branch hours as needed for Nausea and Vomiting (N/V). ondansetron 2020-0 Yes [id number] 4mg Take 1 [facility] 4 mg 2-04 tablet by ity of disintegrat 00:00: mouth [place] ing tablet 00 every 8 Medica l (eight) Branch hours as needed for Nausea and Vomiting (N/V). ondansetron 2020-0 Yes [id number] 4mg Take 1 [facility] 4 mg 2-04 tablet by ity of disintegrat 00:00: mouth [place] ing tablet 00 every 8 Medica l (eight) Branch hours as needed for Nausea and Vomiting (N/V). ondansetron 2020-0 Yes [id number] 4mg Take 1 [facility] 4 mg 2-04 tablet by ity of disintegrat 00:00: mouth [place] ing tablet 00 every 8 Medica l (eight) Branch hours as needed for Nausea and Vomiting (N/V). ondansetron 2020-0 Yes [id number] 4mg Take 1 [facility] 4 mg 2-04 tablet by ity of disintegrat 00:00: mouth [place] ing tablet 00 every 8 Medica l (eight) Branch hours as needed for Nausea and Vomiting (N/V). ondansetron 2020-0 Yes [id number] 4mg Take 1 [facility] 4 mg 2-04 tablet by ity of disintegrat 00:00: mouth [place] ing tablet 00 every 8 Medica l (eight) Branch hours as needed for Nausea and Vomiting (N/V). ondansetron 2020-0 Yes [id number] 4mg Take 1 [facility] 4 mg 2-04 tablet by ity of disintegrat 00:00: mouth [place] ing tablet 00 every 8 Medica l (eight) Branch hours as needed for Nausea and Vomiting (N/V). ondansetron 2020-0 Yes [id number] 4mg Take 1 [facility] 4 mg 2-04 tablet by ity of disintegrat 00:00: mouth [place] ing tablet 00 every 8 Medica l (eight) Branch hours as needed for Nausea and Vomiting (N/V). ondansetron 2020-0 Yes [id number] 4mg Take 1 [facility] 4 mg 2-04 tablet by ity of disintegrat 00:00: mouth [place] ing tablet 00 every 8 Medica l (eight) Branch hours as needed for Nausea and Vomiting (N/V). traMADol 2020-0 Yes [id number] 100mg Take 1 Un you 100 mg 24 2-04 tablet by ity o f hr tablet 00:00: mouth [place] 00 daily. Medical Branch ondansetron 2020-0 Yes [id number] 4mg Take 1 [facility] 4 mg 2-04 tablet by ity of disintegrat 00:00: mouth [place] ing tablet 00 every 8 Medica l (eight) Branch hours as needed for Nausea and Vomiting (N/V). traMADol 2020-0 Yes [id number] 100mg Take 1 Un you 100 mg 24 2-04 tablet by ity o f hr tablet 00:00: mouth [place] 00 daily. Medical Branch ondansetron 2020-0 Yes [id number] 4mg Take 1 [facility] 4 mg 2-04 tablet by ity of disintegrat 00:00: mouth [place] ing tablet 00 every 8 Medica l (eight) Branch hours as needed for Nausea and Vomiting (N/V). traMADol 2020-0 Yes [id number] 100mg Take 1 Un you 100 mg 24 2-04 tablet by ity o f hr tablet 00:00: mouth [place] 00 daily. Medical Branch ondansetron 2020-0 Yes [id number] 4mg Take 1 [facility] 4 mg 2-04 tablet by ity of disintegrat 00:00: mouth [place] ing tablet 00 every 8 Medica l (eight) Branch hours as needed for Nausea and Vomiting (N/V). traMADol 2020-0 Yes [id number] 100mg Take 1 Un you 100 mg 24 2-04 tablet by ity o f hr tablet 00:00: mouth [place] 00 daily. Medical Branch ondansetron 2020-0 Yes [id number] 4mg Take 1 [facility] 4 mg 2-04 tablet by ity of disintegrat 00:00: mouth [place] ing tablet 00 every 8 Medica l (eight) Branch hours as needed for Nausea and Vomiting (N/V). traMADol 2020-0 Yes [id number] 100mg Take 1 Un you 100 mg 24 2-04 tablet by ity o f hr tablet 00:00: mouth [place] 00 daily. Medical Branch ondansetron 2020-0 Yes [id number] 4mg Take 1 [facility] 4 mg 2-04 tablet by ity of disintegrat 00:00: mouth [place] ing tablet 00 every 8 Medica l (eight) Branch hours as needed for Nausea and Vomiting (N/V). ondansetron 2020-0 2021- No [id number] 4mg Take 1 [facility] 4 mg 2-04 04-05 tablet by ity of disintegrat 00:00: 00:00 mouth [place] tablet 00 :00 every 8 Medica l (eight) Branch hours as needed for Nausea and Vomiting (N/V). ondansetron 2020- No [id number] 4mg Take 1 [facility] 4 mg 2-04 04-05 tablet by ity of disintegrat 00:00: 00:00 mouth [place] tablet 00 :00 every 8 Medica l (eight) Branch hours as needed for Nausea and Vomiting (N/V). traMADol 2019- No [id number] 100mg Take 1 [facility] n[facility] 100 mg [...] 44 daily. Medical Branch ondansetron 2018-04 Yes [id number] 4mg Take 1 [facility] 4 mg tablet 0-26 tablet by ity of 00:00: mouth [place] 00 every 8 Medical (eight) Branch hours as needed for Nausea and Vomiting (N/V). ondansetron 2018-04 Yes [id number] 4mg Take 1 [facility] 4 mg tablet 0-26 tablet by ity of 00:00: mouth [place] 00 every 8 Medical (eight) Branch hours as needed for Nausea and Vomiting (N/V). ondansetron 2018-04 Yes [id number] 4mg Take 1 [facility] 4 mg tablet 0-26 tablet by ity of 00:00: mouth [place] 00 every 8 Medical (eight) Branch hours as needed for Nausea and Vomiting (N/V). ondansetron 2018-04 Yes [id number] 4mg Take 1 [facility] 4 mg tablet 0-26 tablet by ity of 00:00: mouth [place] 00 every 8 Medical (eight) Branch hours as needed for Nausea and Vomiting (N/V). ondansetron 2018-04 Yes [id number] 4mg Take 1 [facility] 4 mg tablet 0-26 tablet by ity of 00:00: mouth [place] 00 every 8 Medical (eight) Branch hours as needed for Nausea and Vomiting (N/V). ondansetron 2018-04 Yes [id number] 4mg Take 1 [facility] 4 mg tablet 0-26 tablet by ity of 00:00: mouth [place] 00 every 8 Medical (eight) Branch hours as needed for Nausea and Vomiting (N/V). ondansetron 2018-04 2020- No [id number] 4mg Take 1 [facility] 4 mg tablet 0-26 10-26 tablet by it y of 00:00: 00:00 mouth [place] 00 :00 every 8 Medical (eight) Branch hours as needed for Nausea and Vomiting (N/V). losartan 2018-0 Yes [id number] 100mg Take 1 [facility] 100 mg 9-23 tablet by ity of tablet 00:00: mouth [place] 00 daily. Medical Branch losartan 0 Yes [id number] 100mg Take 1 Un you 100 mg 9-23 tablet by ity of tablet 00:00: mouth [place] 00 daily. Medical Branch losartan 2018-0 Yes [id number] 100mg Take 1 Un you 100 mg 9-23 tablet by ity of tablet 00:00: mouth [place] 00 daily. Medical Branch losartan 2018-0 Yes [id number] 100mg Take 1 Un you 100 mg 9-23 tablet by ity of tablet 00:00: mouth [place] 00 daily. Medical Branch losartan 2018-0 Yes [id number] 100mg Take 1 Un you 100 mg 9-23 tablet by ity of tablet 00:00: mouth [place] 00 daily. Medical Branch losartan 2018-0 Yes [id number] 100mg Take 1 Un you 100 mg 9-23 tablet by ity of tablet 00:00: mouth [place] 00 daily. Medical Branch losartan 2018-0 Yes [id number] 100mg Take 1 Un you 100 mg 9-23 tablet by ity of tablet 00:00: mouth [place] 00 daily. Medical Branch losartan 2018-0 Yes [id number] 100mg Take 1 Un you 100 mg 9-23 tablet by ity of tablet 00:00: mouth [place] 00 daily. Medical Branch losartan 2019-0 Yes [id number] 100mg Take 1 Un you 100 mg 9-23 tablet by ity of tablet 00:00: mouth [place] 00 daily. Medical Branch losartan 2019-0 Yes [id number] 100mg Take 1 Un you 100 mg 9-23 tablet by ity of tablet 00:00: mouth [place] 00 daily. Medical Branch losartan 2018-0 Yes [id number] 100mg Take 1 Un you 100 mg 9-23 tablet by ity of tablet 00:00: mouth [place] 00 daily. Medical Branch losartan 2019-0 Yes [id number] 100mg Take 1 Un you 100 mg 9-23 tablet by ity of tablet 00:00: mouth [place] 00 daily. Medical Branch losartan 2019-0 Yes [id number] 100mg Take 1 Un you 100 mg 9-23 tablet by ity of tablet 00:00: mouth [place] 00 daily. Medical Branch losartan 2018-0 Yes [id number] 100mg Take 1 Un you 100 mg 9-23 tablet by ity of tablet 00:00: mouth [place] 00 daily. Medical Branch losartan 2018-0 Yes [id number] 100mg Take 1 Un you 100 mg 9-23 tablet by ity of tablet 00:00: mouth [place] 00 daily. Medical Branch losartan 2018-0 Yes [id number] 100mg Take 1 Un you 100 mg 9-23 tablet by ity of tablet 00:00: mouth [place] 00 daily. Medical Branch losartan 2018-0 Yes [id number] 100mg Take 1 Un you 100 mg 9-23 tablet by ity of tablet 00:00: mouth [place] 00 daily. Medical Branch losartan 2018-0 Yes [id number] 100mg Take 1 Un you 100 mg 9-23 tablet by ity of tablet 00:00: mouth [place] 00 daily. Medical Branch losartan 2018-0 Yes [id number] 100mg Take 1 Un you 100 mg 9-23 tablet by ity of tablet 00:00: mouth [place] 00 daily. Medical Branch losartan 2018-0 Yes [id number] 100mg Take 1 Un you 100 mg 9-23 tablet by ity of tablet 00:00: mouth [place] 00 daily. Medical Branch losartan 2019-0 Yes [id number] 100mg Take 1 Un you 100 mg 9-23 tablet by ity of tablet 00:00: mouth [place] 00 daily. Medical Branch losartan 2019-0 Yes [id number] 100mg Take 1 Un you 100 mg 9-23 tablet by ity of tablet 00:00: mouth [place] 00 daily. Medical Branch losartan 2019-0 Yes [id number] 100mg Take 1 Un you 100 mg 9-23 tablet by ity of tablet 00:00: mouth [place] 00 daily. Medical Branch losartan 2019-0 Yes [id number] 100mg Take 1 Un you 100 mg 9-23 tablet by ity of tablet 00:00: mouth [place] 00 daily. Medical Branch losartan 2019-0 2020- No [id number] 100mg Take 1 U nivers 100 mg 9-23 04-05 tablet by ity of tablet 00:00: 00:00 mouth [place] 00 :00 daily. Medical Branch losartan 2020- No [id number] 100mg Take 1 U nivers 100 mg 01-05 tablet by ity of tablet 00:00: 00:00 mouth [place] 00 :00 daily. Medical Branch traMADol 50 2018- Yes [id number] 1 by mouth [facility] mg tablet 12-05 [id number] every 4-6 ity of 00:00: hours as [place] 00 needed for Medical pain Branch traMADol 50 2018- Yes [id number] 1 by mouth [facility] mg tablet 12-05 [id number] every 4-6 ity of 00:00: hours as [place] 00 needed for Medical pain Branch traMADol 50 2018- Yes [id number] 1 by mouth [facility] mg tablet 12-05 [id number] every 4-6 ity of 00:00: hours as [place] 00 needed for Medical pain Branch traMADol 50 2018- Yes [id number] 1 by mouth [facility] mg tablet 12-05 [id number] every 4-6 ity of 00:00: hours as [place] 00 needed for Medical pain Branch traMADol 50 2018- Yes [id number] 1 by mouth [facility] mg tablet 12-05 [id number] every 4-6 ity of 00:00: hours as [place] 00 needed for Medical pain Branch traMADol 50 2019-0 Yes [id number] 1 by mouth [facility] mg tablet 12-05 [id number] every 4-6 ity of 00:00: hours as [place] 00 needed for Medical pain Branch traMADol 50 2019-0 Yes [id number] 1 by mouth [facility] mg tablet 12-05 [id number] every 4-6 ity of 00:00: hours as [place] 00 needed for Medical pain Branch traMADol 50 2019-0 Yes [id number] 1 by mouth [facility] mg tablet 12-05 [id number] every 4-6 ity of 00:00: hours as [place] 00 needed for Medical pain Branch traMADol 50 2019-0 Yes [id number] 1 by mouth [facility] mg tablet 12-05 [id number] every 4-6 ity of 00:00: hours as [place] 00 needed for Medical pain Branch traMADol 50 2019- Yes [id number] 1 by mouth [facility] mg tablet 12-05 [id number] every 4-6 ity of 00:00: hours as [place] 00 needed for Medical pain Branch traMADol 50 2019- Yes [id number] 1 by mouth [facility] mg tablet 12-05 [id number] every 4-6 ity of 00:00: hours as [place] 00 needed for Medical pain Branch traMADol 50 2019-0 Yes [id number] 1 by mouth [facility] mg tablet 12-05 [id number] every 4-6 ity of 00:00: hours as [place] 00 needed for Medical pain Branch traMADol 50 2019-0 Yes [id number] 1 by mouth [facility] mg tablet 12-05 [id number] every 4-6 ity of 00:00: hours as [place] 00 needed for Medical pain Branch traMADol 50 2019-0 Yes [id number] 1 by mouth [facility] mg tablet 12-05 [id number] every 4-6 ity of 00:00: hours as [place] 00 needed for Medical pain Branch traMADol 50 2019-0 Yes [id number] 1 by mouth [facility] mg tablet 12-05 [id number] every 4-6 ity of 00:00: hours as [place] 00 needed for Medical pain Branch traMADol 50 2019-0 Yes [id number] 1 by mouth [facility] mg tablet 12-05 [id number] every 4-6 ity of 00:00: hours as [place] 00 needed for Medical pain Branch traMADol 50 2019-0 Yes [id number] 1 by mouth [facility] mg tablet 12-05 [id number] every 4-6 ity of 00:00: hours as [place] 00 needed for Medical pain Branch traMADol 50 2019-0 2020- No [id number] 1 by mouth [facility] mg tablet 12-05 [id number] every 4-6 it y of 00:00: 00:00 [...] [place] 24 times Medical daily. Branch pantoprazol 2019 Yes 40mg 40 mg, Univ ers e 8-05 Oral, BID, ity of (PROTONIX) 13:00: First dose [place] [facility] tablet 00 on Mon Medical 40 mg 11/17/18 at Branch 0800, Until Discontinu ed, Routine FENTanyl PF 2019- No 75ug 75 mcg, Un you (SUBLIMAZE 8- 08-05 Slow IV ity o f (PF)) 02:15: 01:11 Push, [place] injection 00 :00 ONCE, 1 Medical 75 mcg dose, [facility] [place] 11/16/18 at 2115, [place] pantoprazol Yes [id number] 40mg Take 1 [facility] e 40 mg EC 8-05 tablet by ity of tablet 00:00: mouth 2 (two) Medical times Branch daily. proMETHazin Yes [id number] 25mg Take 1 [facility] e 25 mg 8-05 tablet by ity of tablet 00:00: mouth [place] 00 every 6 Medical (six) Branch hours as needed for N/V alternatin g with Ondansetro n. HYDROcodone Yes [id number] 1{tbl} Take 1 [facility] -acetaminop 8-05 tablet by ity of hen 7.5-325 00:00: mouth [place] mg per 00 every 6 Medical tablet (six) Branch hours as needed (Pain scal 7-10). pantoprazol Yes [id number] 40mg Take 1 [facility] e 40 mg EC 8-05 tablet by ity of tablet 00:00: mouth 2 (two) Medical times Branch daily. proMETHazin Yes [id number] 25mg Take 1 [facility] e 25 mg 8-05 tablet by ity of tablet 00:00: mouth [place] 00 every 6 Medical (six) Branch hours as needed for N/V alternatin g with Ondansetro n. HYDROcodone Yes [id number] 1{tbl} Take 1 [facility] -acetaminop 8-05 tablet by ity of hen 7.5-325 00:00: mouth [place] mg per 00 every 6 Medical tablet (six) Branch hours as needed (Pain scal 7-10). pantoprazol Yes [id number] 40mg Take 1 [facility] e 40 mg EC 8-05 tablet by ity of tablet 00:00: mouth 2 [place] 00 (two) Medical times Branch daily. proMETHazin 2018- Yes [id number] 25mg Take 1 [facility] e 25 mg 8-05 tablet by ity of tablet 00:00: mouth [place] 00 every 6 Medical (six) Branch hours as needed for N/V alternatin g with Ondansetro n. HYDROcodone Yes [id number] 1{tbl} Take 1 [facility] -acetaminop 8-05 tablet by ity of hen 7.5-325 00:00: mouth [place] mg per 00 every 6 Medical tablet (six) Branch hours as needed (Pain scal 7-10). pantoprazol Yes [id number] 40mg Take 1 [facility] e 40 mg EC 8-05 tablet by ity of tablet 00:00: mouth 2 (two) Medical times Branch daily. proMETHazin Yes [id number] 25mg Take 1 [facility] e 25 mg 8-05 tablet by ity of tablet 00:00: mouth [place] 00 every 6 Medical (six) Branch hours as needed for N/V alternatin g with Ondansetro n. HYDROcodone Yes [id number] 1{tbl} Take 1 [facility] -acetaminop 8-05 tablet by ity of hen 7.5-325 00:00: mouth [place] mg per 00 every 6 Medical tablet (six) Branch hours as needed (Pain scal 7-10). pantoprazol Yes [id number] 40mg Take 1 [facility] e 40 mg EC 8-05 tablet by ity of tablet 00:00: mouth 2 (two) Medical times Branch daily. proMETHazin Yes [id number] 25mg Take 1 [facility] e 25 mg 8-05 tablet by ity of tablet 00:00: mouth [place] 00 every 6 Medical (six) Branch hours as needed for N/V alternatin g with Ondansetro n. HYDROcodone 2018- Yes [id number] 1{tbl} Take 1 [facility] -acetaminop 8-05 tablet by ity of hen 7.5-325 00:00: mouth [place] mg per 00 every 6 Medical tablet (six) Branch hours as needed (Pain scal 7-10). pantoprazol 2018- Yes [id number] 40mg Take 1 [facility] e 40 mg EC 8-05 tablet by ity of tablet 00:00: mouth 2 [place] 00 (two) Medical times Branch daily. proMETHazin Yes [id number] 25mg Take 1 [facility] e 25 mg 8-05 tablet by ity of tablet 00:00: mouth [place] 00 every 6 Medical (six) Branch hours as needed for N/V alternatin g with Ondansetro n. HYDROcodone Yes [id number] 1{tbl} Take 1 [facility] -acetaminop 8-05 tablet by ity of hen 7.5-325 00:00: mouth [place] mg per 00 every 6 Medical tablet (six) Branch hours as needed (Pain scal 7-10). pantoprazol Yes [id number] 40mg Take 1 [facility] e 40 mg EC 8-05 tablet by ity of tablet 00:00: mouth 2 [place] 00 (two) Medical times Branch daily. proMETHazin Yes [id number] 25mg Take 1 [facility] e 25 mg 8-05 tablet by ity of tablet 00:00: mouth [place] 00 every 6 Medical (six) Branch hours as needed for N/V alternatin g with Ondansetro n. HYDROcodone Yes [id number] 1{tbl} Take 1 [facility] -acetaminop 8-05 tablet by ity of hen 7.5-325 00:00: mouth [place] mg per 00 every 6 Medical tablet (six) Branch hours as needed (Pain scal 7-10). pantoprazol Yes [id number] 40mg Take 1 [facility] e 40 mg EC 8-05 tablet by ity of tablet 00:00: mouth 2 (two) Medical times Branch daily. proMETHazin Yes [id number] 25mg Take 1 [facility] e 25 mg 8-05 tablet by ity of tablet 00:00: mouth [place] 00 every 6 Medical (six) Branch hours as needed for N/V alternatin g with Ondansetro n. HYDROcodone Yes [id number] 1{tbl} Take 1 [facility] -acetaminop 8-05 tablet by ity of hen 7.5-325 00:00: mouth [place] mg per 00 every 6 Medical tablet (six) Branch hours as needed (Pain scal 7-10). pantoprazol Yes [id number] 40mg Take 1 [facility] e 40 mg EC 8-05 tablet by ity of tablet 00:00: mouth 2 [place] 00 (two) Medical times Branch daily. proMETHazin Yes [id number] 25mg Take 1 [facility] e 25 mg 8-05 tablet by ity of tablet 00:00: mouth [place] 00 every 6 Medical (six) Branch hours as needed for N/V alternatin g with Ondansetro n. HYDROcodone Yes [id number] 1{tbl} Take 1 [facility] -acetaminop 8-05 tablet by ity of hen 7.5-325 00:00: mouth [place] mg per 00 every 6 Medical tablet (six) Branch hours as needed (Pain scal 7-10). pantoprazol Yes [id number] 40mg Take 1 [facility] e 40 mg EC 8-05 tablet by ity of tablet 00:00: mouth 2 (two) Medical times Branch daily. proMETHazin Yes [id number] 25mg Take 1 [facility] e 25 mg 8-05 tablet by ity of tablet 00:00: mouth [place] 00 every 6 Medical (six) Branch hours as needed for N/V alternatin g with Ondansetro n. HYDROcodone Yes [id number] 1{tbl} Take 1 [facility] -acetaminop 8-05 tablet by ity of hen 7.5-325 00:00: mouth [place] mg per 00 every 6 Medical tablet (six) Branch hours as needed (Pain scal 7-10). pantoprazol Yes [id number] 40mg Take 1 [facility] e 40 mg EC 8-05 tablet by ity of tablet 00:00: mouth 2 (two) Medical times Branch daily. proMETHazin Yes [id number] 25mg Take 1 [facility] e 25 mg 8-05 tablet by ity of tablet 00:00: mouth [place] 00 every 6 Medical (six) Branch hours as needed for N/V alternatin g with Ondansetro n. HYDROcodone Yes [id number] 1{tbl} Take 1 [facility] -acetaminop 8-05 tablet by ity of hen 7.5-325 00:00: mouth [place] mg per 00 every 6 Medical tablet (six) Branch hours as needed (Pain scal 7-10). pantoprazol Yes [id number] 40mg Take 1 [facility] e 40 mg EC 8-05 tablet by ity of tablet 00:00: mouth 2 [place] 00 (two) Medical times Branch daily. proMETHazin Yes [id number] 25mg Take 1 [facility] e 25 mg 8-05 tablet by ity of tablet 00:00: mouth [place] 00 every 6 Medical (six) Branch hours as needed for N/V alternatin g with Ondansetro n. HYDROcodone Yes [id number] 1{tbl} Take 1 [facility] -acetaminop 8-05 tablet by ity of hen 7.5-325 00:00: mouth [place] mg per 00 every 6 Medical tablet (six) Branch hours as needed (Pain scal 7-10). pantoprazol Yes [id number] 40mg Take 1 [facility] e 40 mg EC 8-05 tablet by ity of tablet 00:00: mouth 2 [place] (two) Medical times Branch daily. proMETHazin Yes [id number] 25mg Take 1 [facility] e 25 mg 8-05 tablet by ity of tablet 00:00: mouth [place] 00 every 6 Medical (six) Branch hours as needed for N/V alternatin g with Ondansetro n. HYDROcodone Yes [id number] 1{tbl} Take 1 [facility] -acetaminop 8-05 tablet by ity of hen 7.5-325 00:00: mouth [place] mg per 00 every 6 Medical tablet (six) Branch hours as needed (Pain scal 7-10). pantoprazol Yes [id number] 40mg Take 1 [facility] e 40 mg EC 8-05 tablet by ity of tablet 00:00: mouth 2 [place] 00 (two) Medical times Branch daily. proMETHazin Yes [id number] 25mg Take 1 [facility] e 25 mg 8-05 tablet by ity of tablet 00:00: mouth [place] 00 every 6 Medical (six) Branch hours as needed for N/V alternatin g with Ondansetro n. HYDROcodone Yes [id number] 1{tbl} Take 1 [facility] -acetaminop 8-05 tablet by ity of hen 7.5-325 00:00: mouth [place] mg per 00 every 6 Medical tablet (six) Branch hours as needed (Pain scal 7-10). pantoprazol Yes [id number] 40mg Take 1 [facility] e 40 mg EC 8-05 tablet by ity of tablet 00:00: mouth 2 [place] 00 (two) Medical times Branch daily. proMETHazin Yes [id number] 25mg Take 1 [facility] e 25 mg 8-05 tablet by ity of tablet 00:00: mouth [place] 00 every 6 Medical (six) Branch hours as needed for N/V alternatin g with Ondansetro n. HYDROcodone Yes [id number] 1{tbl} Take 1 [facility] -acetaminop 8-05 tablet by ity of hen 7.5-325 00:00: mouth [place] mg per 00 every 6 Medical tablet (six) Branch hours as needed (Pain scal 7-10). pantoprazol Yes [id number] 40mg Take 1 [facility] e 40 mg EC 8-05 tablet by ity of tablet 00:00: mouth 2 [place] (two) Medical times Branch daily. proMETHazin Yes [id number] 25mg Take 1 [facility] e 25 mg 8-05 tablet by ity of tablet 00:00: mouth [place] 00 every 6 Medical (six) Branch hours as needed for N/V alternatin g with Ondansetro n. HYDROcodone Yes [id number] 1{tbl} Take 1 [facility] -acetaminop 8-05 tablet by ity of hen 7.5-325 00:00: mouth [place] mg per 00 every 6 Medical tablet (six) Branch hours as needed (Pain scal 7-10). pantoprazol Yes [id number] 40mg Take 1 [facility] 40 mg EC 8-05 tablet by [facility] tablet 00:00: mouth 2 [place] 00 (two) Medical times Branch daily. proMETHazin Yes [id number] 25mg Take 1 [facility] 25 mg 8-05 tablet by [facility] tablet 00:00: mouth [place] 00 every 6 Medical (six) Branch hours as needed for N/V alternatin g with Ondansetro n. HYDROcodone Yes [id number] 1{tbl} Take 1 [facility] -acetaminop 8-05 tablet by [facility] of hen 7.5-325 00:00: mouth [place] mg per 00 every 6 Medical tablet (six) Branch hours as needed (Pain scal 7-10). pantoprazol Yes [id number] 40mg Take 1 [facility] 40 mg EC 8-05 tablet by [facility] tablet 00:00: mouth 2 [place] 00 (two) Medical times Branch daily. proMETHazin Yes [id number] 25mg Take 1 [facility] 25 mg 8-05 tablet by [facility] tablet 00:00: mouth [place] 00 every 6 Medical (six) Branch hours as needed for N/V alternatin g with Ondansetro n. HYDROcodone Yes [id number] 1{tbl} Take 1 [facility] -acetaminop 8-05 tablet by [facility] of hen 7.5-325 00:00: mouth [place] mg per 00 every 6 Medical tablet (six) Branch hours as needed (Pain scal 7-10). pantoprazol Yes [id number] 40mg Take 1 [facility] 40 mg EC 8-05 tablet by [facility] tablet 00:00: mouth 2 [place] 00 (two) Medical times Branch daily. proMETHazin Yes [id number] 25mg Take 1 [facility] 25 mg 8-05 tablet by [facility] tablet 00:00: mouth [place] 00 every 6 Medical (six) Branch hours as needed for N/V alternatin g with Ondansetro n. HYDROcodone Yes [id number] 1{tbl} Take 1 [facility] -acetaminop 8-05 tablet by [facility] of hen 7.5-325 00:00: mouth [place] mg per 00 every 6 Medical tablet (six) Branch hours as needed (Pain scal 7-10). HYDROcodone Yes [id number] 1{tbl} Take 1 [facility] -acetaminop 8-05 tablet by [facility] of hen 7.5-325 00:00: mouth [place] mg per 00 every 6 Medical tablet (six) Branch hours as needed (Pain scal 7-10). HYDROcodone Yes [id number] 1{tbl} Take 1 [facility] -acetaminop 8-05 tablet by [facility] of hen 7.5-325 00:00: mouth [place] mg per 00 every 6 Medical tablet (six) Branch hours as needed (Pain scal 7-10). HYDROcodone Yes [id number] 1{tbl} Take 1 [facility] -acetaminop 8-05 tablet by [facility] of hen 7.5-325 00:00: mouth [place] mg per 00 every 6 Medical tablet (six) Branch hours as needed (Pain scal 7-10). HYDROcodone Yes [id number] 1{tbl} Take 1 [facility] -acetaminop 8-05 tablet by [facility] hen 7.5-325 00:00: mouth [place] mg per 00 every 6 Medical tablet (six) Branch hours as needed (Pain scal 7-10). HYDROcodone Yes [id number] 1{tbl} Take 1 [facility] -acetaminop 8-05 tablet by [facility] of hen 7.5-325 00:00: mouth [place] mg per 00 every 6 Medical tablet (six) Branch hours as needed (Pain scal 7-10). HYDROcodone Yes [id number] 1{tbl} Take 1 [facility] -acetaminop 8-05 tablet by [facility] of hen 7.5-325 00:00: mouth [place] mg per 00 every 6 Medical tablet (six) Branch hours as needed (Pain scal 7-10). HYDROcodone Yes [id number] 1{tbl} Take 1 [facility] -acetaminop 8-05 tablet by [facility] of hen 7.5-325 00:00: mouth [place] mg per 00 every 6 Medical tablet (six) Branch hours as needed (Pain scal 7-10). HYDROcodone Yes [id number] 1{tbl} Take 1 [facility] -acetaminop 8-05 tablet by [facility] of hen 7.5-325 00:00: mouth [place] mg per 00 every 6 Medical tablet (six) Branch hours as needed (Pain scal 7-10). HYDROcodone Yes [id number] 1{tbl} Take 1 [facility] -acetaminop 8-05 tablet by [facility] of hen 7.5-325 00:00: mouth [place] mg per 00 every 6 Medical tablet (six) Branch hours as needed (Pain scal 7-10). HYDROcodone Yes [id number] 1{tbl} Take 1 [facility] -acetaminop 8-05 tablet by [facility] of hen 7.5-325 00:00: mouth [place] mg per 00 every 6 Medical tablet (six) Branch hours as needed (Pain scal 7-10). HYDROcodone Yes [id number] 1{tbl} Take 1 [facility] -acetaminop 8-05 tablet by [facility] of hen 7.5-325 00:00: mouth [place] mg per 00 every 6 Medical tablet (six) Branch hours as needed (Pain scal 7-10). HYDROcodone Yes [id number] 1{tbl} Take 1 [facility] -acetaminop 8-05 tablet by [facility] of hen 7.5-325 00:00: mouth [place] mg per 00 every 6 Medical tablet (six) Branch hours as needed (Pain scal 7-10). HYDROcodone Yes [id number] 1{tbl} Take 1 [facility] -acetaminop 8-05 tablet by [facility] of hen 7.5-325 00:00: mouth [place] mg per 00 every 6 Medical tablet (six) Branch hours as needed (Pain scal 7-10). HYDROcodone Yes [id number] 1{tbl} Take 1 [facility] -acetaminop 8-05 tablet by [facility] of hen 7.5-325 00:00: mouth [place] mg per 00 every 6 Medical tablet (six) Branch hours as needed (Pain scal 7-10). HYDROcodone Yes [id number] 1{tbl} Take 1 [facility] -acetaminop 8-05 tablet by [facility] of hen 7.5-325 00:00: mouth [place] mg per 00 every 6 Medical tablet (six) Branch hours as needed (Pain scal 7-10). HYDROcodone Yes [id number] 1{tbl} Take 1 [facility] -acetaminop 8-05 tablet by [facility] of hen 7.5-325 00:00: mouth [place] mg per 00 every 6 Medical tablet (six) Branch hours as needed (Pain scal 7-10). HYDROcodone Yes [id number] 1{tbl} Take 1 [facility] -acetaminop 8-05 tablet by [facility] of hen 7.5-325 00:00: mouth [place] mg per 00 every 6 Medical tablet (six) Branch hours as needed (Pain scal 7-10). HYDROcodone Yes [id number] 1{tbl} Take 1 [facility] -acetaminop 8-05 tablet by [facility] of hen 7.5-325 00:00: mouth [place] mg per 00 every 6 Medical tablet (six) Branch hours as needed (Pain scal 7-10). HYDROcodone Yes [id number] 1{tbl} Take 1 [facility] -acetaminop 8-05 tablet by [facility] of hen 7.5-325 00:00: mouth [place] mg per 00 every 6 Medical tablet (six) Branch hours as needed (Pain scal 7-10). HYDROcodone Yes [id number] 1{tbl} Take 1 [facility] -acetaminop 8-05 tablet by [facility] hen 7.5-325 00:00: mouth [place] mg per 00 every 6 Medical tablet (six) Branch hours as needed (Pain scal 7-10). HYDROcodone Yes [id number] 1{tbl} Take 1 [facility] -acetaminop 8-05 tablet by [facility] of hen 7.5-325 00:00: mouth [place] mg per 00 every 6 Medical tablet (six) Branch hours as needed (Pain scal 7-10). HYDROcodone Yes [id number] 1{tbl} Take 1 [facility] -acetaminop 8-05 tablet by [facility] hen 7.5-325 00:00: mouth [place] mg per 00 every 6 Medical tablet (six) Branch hours as needed (Pain scal 7-10). HYDROcodone Yes [id number] 1{tbl} Take 1 [facility] -acetaminop 8-05 tablet by [facility] of hen 7.5-325 00:00: mouth [place] mg per 00 every 6 Medical tablet (six) Branch hours as needed (Pain scal 7-10). HYDROcodone Yes [id number] 1{tbl} Take 1 [facility] -acetaminop 8-05 tablet by [facility] hen 7.5-325 00:00: mouth [place] mg per 00 every 6 Medical tablet (six) Branch hours as needed (Pain scal 7-10). HYDROcodone Yes [id number] 1{tbl} Take 1 [facility] -acetaminop 8-05 tablet by [facility] of hen 7.5-325 00:00: mouth [place] mg per 00 every 6 Medical tablet (six) Branch hours as needed (Pain scal 7-10). HYDROcodone Yes [id number] 1{tbl} Take 1 [facility] -acetaminop 8-05 tablet by [facility] of hen 7.5-325 00:00: mouth [place] mg per 00 every 6 Medical tablet (six) Branch hours as needed (Pain scal 7-10). HYDROcodone Yes [id number] 1{tbl} Take 1 [facility] -acetaminop 8-05 tablet by [facility] of hen 7.5-325 00:00: mouth [place] mg per 00 every 6 Medical tablet (six) Branch hours as needed (Pain scal 7-10). HYDROcodone Yes [id number] 1{tbl} Take 1 [facility] -acetaminop 8-05 tablet by [facility] of hen 7.5-325 00:00: mouth [place] mg per 00 every 6 Medical tablet (six) Branch hours as needed (Pain scal 7-10). HYDROcodone Yes [id number] 1{tbl} Take 1 [facility] -acetaminop 8-05 tablet by [facility] of hen 7.5-325 00:00: mouth [place] mg per 00 every 6 Medical tablet (six) Branch hours as needed (Pain scal 7-10). HYDROcodone Yes [id number] 1{tbl} Take 1 [facility] -acetaminop 8-05 tablet by [facility] of hen 7.5-325 00:00: mouth [place] mg per 00 every 6 Medical tablet (six) Branch hours as needed (Pain scal 7-10). HYDROcodone Yes [id number] 1{tbl} Take 1 [facility] -acetaminop 8-05 tablet by [facility] of hen 7.5-325 00:00: mouth [place] mg per 00 every 6 Medical tablet (six) Branch hours as needed (Pain scal 7-10). HYDROcodone Yes [id number] 1{tbl} Take 1 [facility] -acetaminop 8-05 tablet by [facility] of hen 7.5-325 00:00: mouth [place] mg per 00 every 6 Medical tablet (six) Branch hours as needed (Pain scal 7-10). HYDROcodone Yes [id number] 1{tbl} Take 1 [facility] -acetaminop 8-05 tablet by [facility] of hen 7.5-325 00:00: mouth [place] mg per 00 every 6 Medical tablet (six) Branch hours as needed (Pain scal 7-10). HYDROcodone Yes [id number] 1{tbl} Take 1 [facility] -acetaminop 8-05 tablet by [facility] of hen 7.5-325 00:00: mouth [place] mg per 00 every 6 Medical tablet (six) Branch hours as needed (Pain scal 7-10). HYDROcodone 2018- Yes [id number] 1{tbl} Take 1 [facility] -acetaminop 8-05 tablet by [facility] of hen 7.5-325 00:00: mouth [place] mg per 00 every 6 Medical tablet (six) Branch hours as needed (Pain scal 7-10). HYDROcodone 2018- Yes [id number] 1{tbl} Take 1 [facility] -acetaminop 8-05 tablet by [facility] of hen 7.5-325 00:00: mouth [place] mg per 00 every 6 Medical tablet (six) Branch hours as needed (Pain scal 7-10). HYDROcodone 2018- Yes [id number] 1{tbl} Take 1 [facility] -acetaminop 8-05 tablet by [facility] of hen 7.5-325 00:00: mouth [place] mg per 00 every 6 Medical tablet (six) Branch hours as needed (Pain scal 7-10). pantoprazol Yes [id number] 40mg Take 1 [facility] 40 mg EC 8-05 tablet by [facility] of tablet 00:00: mouth 2 [place] 00 (two) Medical times Branch daily. ondansetron 2018- Yes [id number] 4mg Take 1 [facility] 4 mg tablet 8-05 tablet by ity of 00:00: mouth [place] 00 every 8 Medical (eight) Branch hours as needed for Nausea and Vomiting (N/V). proMETHazin 2018- Yes [id number] 25mg Take 1 [facility] 25 mg 8-05 tablet by [facility] of tablet 00:00: mouth [place] 00 every 6 Medical (six) Branch hours as needed for N/V alternatin g with Ondansetro n. HYDROcodone Yes [id number] 1{tbl} Take 1 [facility] -acetaminop 8-05 tablet by [facility] of hen 7.5-325 00:00: mouth [place] mg per 00 every 6 Medical tablet (six) Branch hours as needed (Pain scal 7-10). pantoprazol 2019- Yes [id number] 40mg Take 1 [facility] 40 mg EC 8-05 tablet by [facility] of tablet 00:00: mouth 2 [place] 00 (two) Medical times Branch daily. ondansetron 2018- Yes [id number] 4mg Take 1 [facility] 4 mg tablet 8-05 tablet by it[facility] of 00:00: mouth [place] 00 every 8 Medical (eight) Branch hours as needed for Nausea and Vomiting (N/V). proMETHazin 2019-0 Yes [id number] 25mg Take 1 [facility] 25 mg 8-05 tablet by [facility] of tablet 00:00: mouth [place] 00 every 6 Medical (six) Branch hours as needed for N/V alternatin g with Ondansetro n. HYDROcodone 2018- Yes [id number] 1{tbl} Take 1 [facility] -acetaminop 8-05 tablet by [facility] of hen 7.5-325 00:00: mouth [place] mg per 00 every 6 Medical tablet (six) Branch hours as needed (Pain scal 7-10). pantoprazol Yes [id number] 40mg Take 1 [facility] 40 mg EC 8-05 tablet by [facility] of tablet 00:00: mouth 2 [place] 00 (two) Medical times Branch daily. ondansetron 2018- Yes [id number] 4mg Take 1 [facility] 4 mg tablet 8-05 tablet by [facility] of 00:00: mouth [place] 00 every 8 Medical (eight) Branch hours as needed for Nausea and Vomiting (N/V). proMETHazin Yes [id number] 25mg Take 1 [facility] 25 mg 8-05 tablet by [facility] of tablet 00:00: mouth [place] 00 every 6 Medical (six) Branch hours as needed for N/V alternatin g with Ondansetro n. HYDROcodone 2018- Yes [id number] 1{tbl} Take 1 [facility] -acetaminop 8-05 tablet by [facility] of hen 7.5-325 00:00: mouth [place] mg per 00 every 6 Medical tablet (six) Branch hours as needed (Pain scal 7-10). pantoprazol 2018- Yes [id number] 40mg Take 1 [facility] 40 mg EC 8-05 tablet by [facility] of tablet 00:00: mouth 2 [place] 00 (two) Medical times Branch daily. ondansetron 2018-0 Yes [id number] 4mg Take 1 [facility] 4 mg tablet 8-05 tablet by [facility] of 00:00: mouth [place] 00 every 8 Medical (eight) Branch hours as needed for Nausea and Vomiting (N/V). proMETHazin 2018- Yes [id number] 25mg Take 1 [facility] 25 mg 8-05 tablet by [facility] of tablet 00:00: mouth [place] 00 every 6 Medical (six) Branch hours as needed for N/V alternatin g with Ondansetro n. HYDROcodone Yes [id number] 1{tbl} Take 1 [facility] -acetaminop 8-05 tablet by [facility] of hen 7.5-325 00:00: mouth [place] mg per 00 every 6 Medical tablet (six) Branch hours as needed (Pain scal 7-10). pantoprazol Yes [id number] 40mg Take 1 [facility] 40 mg EC 8-05 tablet by [facility] of tablet 00:00: mouth 2 [place] 00 (two) Medical times Branch daily. ondansetron Yes [id number] 4mg Take 1 [facility] 4 mg tablet 8-05 tablet by [facility] of 00:00: mouth [place] 00 every 8 Medical (eight) Branch hours as needed for Nausea and Vomiting (N/V). proMETHazin Yes [id number] 25mg Take 1 [facility] 25 mg 8-05 tablet by [facility] of tablet 00:00: mouth [place] 00 every 6 Medical (six) Branch hours as needed for N/V alternatin g with Ondansetro n. HYDROcodone Yes [id number] 1{tbl} Take 1 [facility] -acetaminop 8-05 tablet by [facility]y of hen 7.5-325 00:00: mouth [place] mg per 00 every 6 Medical tablet (six) Branch hours as needed (Pain scal 7-10). pantoprazol Yes [id number] 40mg Take 1 [facility] 40 mg EC 8-05 tablet by [facility] of tablet 00:00: mouth 2 [place] 00 (two) Medical times Branch daily. ondansetron Yes [id number] 4mg Take 1 [facility] 4 mg tablet 8-05 tablet by [facility]y of 00:00: mouth [place] 00 every 8 Medical (eight) Branch hours as needed for Nausea and Vomiting (N/V). proMETHazin Yes [id number] 25mg Take 1 [facility] 25 mg 8-05 tablet by [facility] of tablet 00:00: mouth [place] 00 every 6 Medical (six) Branch hours as needed for N/V alternatin g with Ondansetro n. HYDROcodone Yes [id number] 1{tbl} Take 1 [facility] -acetaminop 8-05 tablet by [facility]y of hen 7.5-325 00:00: mouth [place] mg per 00 every 6 Medical tablet (six) Branch hours as needed (Pain scal 7-10). pantoprazol 2018-0 Yes [id number] 40mg Take 1 [facility] 40 mg EC 8-05 tablet by [facility] of tablet 00:00: mouth 2 [place] 00 (two) Medical times Branch daily. ondansetron 2018- Yes [id number] 4mg Take 1 [facility] 4 mg tablet 8-05 tablet by [facility] of 00:00: mouth [place] 00 every 8 Medical (eight) Branch hours as needed for Nausea and Vomiting (N/V). proMETHazin 2018- Yes [id number] 25mg Take 1 [facility] 25 mg 8-05 tablet by [facility] of tablet 00:00: mouth [place] 00 every 6 Medical (six) Branch hours as needed for N/V alternatin g with Ondansetro n. HYDROcodone Yes [id number] 1{tbl} Take 1 [facility] -acetaminop 8-05 tablet by [facility]y of hen 7.5-325 00:00: mouth [place] mg per 00 every 6 Medical tablet (six) Branch hours as needed (Pain scal 7-10). pantoprazol Yes [id number] 40mg Take 1 [facility] 40 mg EC 8-05 tablet by [facility] of tablet 00:00: mouth 2 [place] 00 (two) Medical times Branch daily. ondansetron 2018- Yes [id number] 4mg Take 1 [facility] 4 mg tablet 8-05 tablet by [facility] of 00:00: mouth [place] 00 every 8 Medical (eight) Branch hours as needed for Nausea and Vomiting (N/V). proMETHazin 2019-0 Yes [id number] 25mg Take 1 [facility] 25 mg 8-05 tablet by [facility] of tablet 00:00: mouth [place] 00 every 6 Medical (six) Branch hours as needed for N/V alternatin g with Ondansetro n. HYDROcodone 2018-0 Yes [id number] 1{tbl} Take 1 [facility] -acetaminop 8-05 tablet by [facility] of hen 7.5-325 00:00: mouth [place] mg per 00 every 6 Medical tablet (six) Branch hours as needed (Pain scal 7-10). pantoprazol 2018- Yes [id number] 40mg Take 1 [facility] 40 mg EC 8-05 tablet by [facility] of tablet 00:00: mouth 2 [place] 00 (two) Medical times Branch daily. ondansetron 2018-0 Yes [id number] 4mg Take 1 [facility] 4 mg tablet 8-05 tablet by [facility] of 00:00: mouth [place] 00 every 8 Medical (eight) Branch hours as needed for Nausea and Vomiting (N/V). proMETHazin 2018- Yes [id number] 25mg Take 1 [facility] 25 mg 8-05 tablet by [facility] of tablet 00:00: mouth [place] 00 every 6 Medical (six) Branch hours as needed for N/V alternatin g with Ondansetro n. HYDROcodone 2018- Yes [id number] 1{tbl} Take 1 [facility] -acetaminop 8-05 tablet by [facility] of hen 7.5-325 00:00: mouth [place] mg per 00 every 6 Medical tablet (six) Branch hours as needed (Pain scal 7-10). pantoprazol Yes [id number] 40mg Take 1 [facility] 40 mg EC 8-05 tablet by [facility] of tablet 00:00: mouth 2 [place] 00 (two) Medical times Branch daily. ondansetron Yes [id number] 4mg Take 1 [facility] 4 mg tablet 8-05 tablet by [facility] of 00:00: mouth [place] 00 every 8 Medical (eight) Branch hours as needed for Nausea and Vomiting (N/V). proMETHazin 2018-0 Yes [id number] 25mg Take 1 [facility] 25 mg 8-05 tablet by [facility] of tablet 00:00: mouth [place] 00 every 6 Medical (six) Branch hours as needed for N/V alternatin g with Ondansetro n. HYDROcodone 2018-0 Yes [id number] 1{tbl} Take 1 [facility] -acetaminop 8-05 tablet by [facility]y of hen 7.5-325 00:00: mouth [place] mg per 00 every 6 Medical tablet (six) Branch hours as needed (Pain scal 7-10). pantoprazol 2018-0 Yes [id number] 40mg Take 1 [facility] 40 mg EC 8-05 tablet by [facility] of tablet 00:00: mouth 2 [place] 00 (two) Medical times Branch daily. ondansetron 2018- Yes [id number] 4mg Take 1 [facility] 4 mg tablet 8-05 tablet by [facility]y of 00:00: mouth [place] 00 every 8 Medical (eight) Branch hours as needed for Nausea and Vomiting (N/V). proMETHazin 2018-0 Yes [id number] 25mg Take 1 [facility] 25 mg 8-05 tablet by [facility] of tablet 00:00: mouth [place] 00 every 6 Medical (six) Branch hours as needed for N/V alternatin g with Ondansetro n. HYDROcodone Yes [id number] 1{tbl} Take 1 [facility] -acetaminop 8-05 tablet by ity of hen 7.5-325 00:00: mouth [place] mg per 00 every 6 Medical tablet (six) Branch hours as needed (Pain scal 7-10). pantoprazol Yes [id number] 40mg Take 1 [facility] 40 mg EC 8-05 tablet by [facility] of tablet 00:00: mouth 2 [place] 00 (two) Medical times Branch daily. ondansetron Yes [id number] 4mg Take 1 [facility] 4 mg tablet 8-05 tablet by [facility] of 00:00: mouth [place] 00 every 8 Medical (eight) Branch hours as needed for Nausea and Vomiting (N/V). proMETHazin 2018- Yes [id number] 25mg Take 1 [facility] 25 mg 8-05 tablet by [facility] of tablet 00:00: mouth [place] 00 every 6 Medical (six) Branch hours as needed for N/V alternatin g with Ondansetro n. HYDROcodone 2018- Yes [id number] 1{tbl} Take 1 [facility] -acetaminop 8-05 tablet by [facility]y of hen 7.5-325 00:00: mouth [place] mg per 00 every 6 Medical tablet (six) Branch hours as needed (Pain scal 7-10). pantoprazol 2018- Yes [id number] 40mg Take 1 [facility] 40 mg EC 8-05 tablet by [facility] of tablet 00:00: mouth 2 [place] 00 (two) Medical times Branch daily. ondansetron Yes [id number] 4mg Take 1 [facility] 4 mg tablet 8-05 tablet by [facility]y of 00:00: mouth [place] 00 every 8 Medical (eight) Branch hours as needed for Nausea and Vomiting (N/V). proMETHazin Yes [id number] 25mg Take 1 [facility] 25 mg 8-05 tablet by [facility] of tablet 00:00: mouth [place] 00 every 6 Medical (six) Branch hours as needed for N/V alternatin g with Ondansetro n. HYDROcodone Yes [id number] 1{tbl} Take 1 [facility] -acetaminop 8-05 tablet by [facility] of hen 7.5-325 00:00: mouth [place] mg per 00 every 6 Medical tablet (six) Branch hours as needed (Pain scal 7-10). pantoprazol Yes [id number] 40mg Take 1 [facility] 40 mg EC 8-05 tablet by [facility] of tablet 00:00: mouth 2 [place] 00 (two) Medical times Branch daily. ondansetron Yes [id number] 4mg Take 1 [facility] 4 mg tablet 8-05 tablet by [facility]y of 00:00: mouth [place] 00 every 8 Medical (eight) Branch hours as needed for Nausea and Vomiting (N/V). proMETHazin Yes [id number] 25mg Take 1 [facility] 25 mg 8-05 tablet by [facility] of tablet 00:00: mouth [place] 00 every 6 Medical (six) Branch hours as needed for N/V alternatin g with Ondansetro n. HYDROcodone Yes [id number] 1{tbl} Take 1 [facility] -acetaminop 8-05 tablet by ity of hen 7.5-325 00:00: mouth [place] mg per 00 every 6 Medical tablet (six) Branch hours as needed (Pain scal 7-10). pantoprazol Yes [id number] 40mg Take 1 [facility] 40 mg EC 8-05 tablet by [facility] of tablet 00:00: mouth 2 [place] 00 (two) Medical times Branch daily. ondansetron Yes [id number] 4mg Take 1 [facility] 4 mg tablet 8-05 tablet by ity of 00:00: mouth [place] 00 every 8 Medical (eight) Branch hours as needed for Nausea and Vomiting (N/V). proMETHazin Yes [id number] 25mg Take 1 [facility] 25 mg 8-05 tablet by [facility]y of tablet 00:00: mouth [place] 00 every 6 Medical (six) Branch hours as needed for N/V alternatin g with Ondansetro n. HYDROcodone Yes [id number] 1{tbl} Take 1 [facility] -acetaminop 8-05 tablet by ity of hen 7.5-325 00:00: mouth [place] mg per 00 every 6 Medical tablet (six) Branch hours as needed (Pain scal 7-10). pantoprazol Yes [id number] 40mg Take 1 [facility] 40 mg EC 8-05 tablet by [facility] of tablet 00:00: mouth 2 [place] 00 (two) Medical times Branch daily. proMETHazin Yes [id number] 25mg Take 1 [facility] 25 mg 8-05 tablet by [facility] of tablet 00:00: mouth [place] 00 every 6 Medical (six) Branch hours as needed for N/V alternatin g with Ondansetro n. HYDROcodone Yes [id number] 1{tbl} Take 1 [facility] -acetaminop 8-05 tablet by ity of hen 7.5-325 00:00: mouth [place] mg per 00 every 6 Medical tablet (six) Branch hours as needed (Pain scal 7-10). pantoprazol Yes [id number] 40mg Take 1 [facility] 40 mg EC 8-05 tablet by [facility] of tablet 00:00: mouth 2 [place] 00 (two) Medical times Branch daily. proMETHazin Yes [id number] 25mg Take 1 [facility] 25 mg 8-05 tablet by [facility] of tablet 00:00: mouth [place] 00 every 6 Medical (six) Branch hours as needed for N/V alternatin g with Ondansetro n. HYDROcodone Yes [id number] 1{tbl} Take 1 [facility] -acetaminop 8-05 tablet by [facility]y of hen 7.5-325 00:00: mouth [place] mg per 00 every 6 Medical tablet (six) Branch hours as needed (Pain scal 7-10). pantoprazol Yes [id number] 40mg Take 1 [facility] 40 mg EC 8-05 tablet by [facility] of tablet 00:00: mouth 2 [place] 00 (two) Medical times Branch daily. proMETHazin Yes [id number] 25mg Take 1 [facility] 25 mg 8-05 tablet by [facility] of tablet 00:00: mouth [place] 00 every 6 Medical (six) Branch hours as needed for N/V alternatin g with Ondansetro n. HYDROcodone Yes [id number] 1{tbl} Take 1 [facility] -acetaminop 8-05 tablet by [facility]y of hen 7.5-325 00:00: mouth [place] mg per 00 every 6 Medical tablet (six) Branch hours as needed (Pain scal 7-10). pantoprazol Yes [id number] 40mg Take 1 [facility] e 40 mg EC 8-05 tablet by ity of tablet 00:00: mouth 2 [place] 00 (two) Medical times Branch daily. proMETHazin Yes [id number] 25mg Take 1 [facility] 25 mg 8-05 tablet by ity of tablet 00:00: mouth [place] 00 every 6 Medical (six) Branch hours as needed for N/V alternatin g with Ondansetro n. HYDROcodone Yes [id number] 1{tbl} Take 1 [facility] -acetaminop 8-05 tablet by ity of hen 7.5-325 00:00: mouth [place] mg per 00 every 6 Medical tablet (six) Branch hours as needed (Pain scal 7-10). pantoprazol Yes [id number] 40mg Take 1 [facility] e 40 mg EC 8-05 tablet by ity of tablet 00:00: mouth 2 [place] 00 (two) Medical times Branch daily. proMETHazin Yes [id number] 25mg Take 1 [facility] e 25 mg 8-05 tablet by [facility]y of tablet 00:00: mouth [place] 00 every 6 Medical (six) Branch hours as needed for N/V alternatin g with Ondansetro n. HYDROcodone Yes [id number] 1{tbl} Take 1 [facility] -acetaminop 8-05 tablet by ity of hen 7.5-325 00:00: mouth [place] mg per 00 every 6 Medical tablet (six) Branch hours as needed (Pain scal 7-10). HYDROcodone 2021- No [id number] 1{tbl} Take 1 [facility] -acetaminop 8-05 05-27 tablet by it y of hen 7.5-325 00:00: 00:00 mouth [place] per 00 :00 every 6 Medical tablet (six) Branch hours as needed (Pain scal 7-10). pantoprazol 2020- No [id number] 40mg Take 1 [facility] e 40 mg EC 8-05 04-05 tablet by ity of tablet 00:00: 00:00 mouth 2 [place] 00 :00 (two) Medical times Branch daily. proMETHazin 2020- No [id number] 25mg Take 1 [facility] e 25 mg 8-05 04-05 tablet by ity of tablet 00:00: 00:00 mouth [place] 00 :00 every 6 Medical (six) Branch hours as needed for N/V alternatin g with Ondansetro n. pantoprazol 2020- No [id number] 40mg Take 1 [facility] e 40 mg EC 8- 04-05 tablet by ity of tablet 00:00: 00:00 mouth 2 [place] 00 :00 (two) Medical times Branch daily. proMETHazin 2020- No [id number] 25mg Take 1 [facility] e 25 mg 8-05 04-05 tablet by ity of tablet 00:00: 00:00 mouth [place] 00 :00 every 6 Medical (six) Branch hours as needed for N/V alternatin g with Ondansetro n. HYDROcodone Yes 1{tbl} 1 tablet, [facility] -acetaminop 11-16 Oral, ity of hen (NORCO) 19:23: Q6HPRN, [place] as 10-325 mg 44 Starting Medica l tablet 1 [place] 11/16/18 Branc h tablet at 1423, Until Discontinu ed, Routine, Pain (scale 4-6), Pain (scale 7-10) citalopram Yes 10mg 10 mg, Unive rs (CELEXA) 8 Oral, ity of tablet 10 14:00: DAILY, [place] mg 00 First dose Medical on [facility] 11/16/18 at 0900, Until Discontinu ed, Routine losartan Yes 100mg 100 mg, Unive rs (COZAAR) 8-04 Oral, ity of tablet 100 14:00: DAILY, [place] mg 00 First dose Medical on [facility] 11/16/18 at 0900, Until Discontinu ed lipase-prot Yes 3{capsu 3 capsule, Univers ease-amylas 8- le} Oral, TID ity of e (CREON) 13:00: MEALS, [place] 12,000-38,0 00 First dose Me dical 00 -60,000 on [facility] unit 11/16/18 at capsule 3 0800, capsule Until Discontinu ed FENTanyl PF 2019- No 25ug 25 mcg, Un you (SUBLIMAZE 11-16- Slow IV ity o f (PF)) 12:38: 19:23 Push, [place] injection 00 :28 Q6HPRN, Medical 25 mcg Starting [facility] 11/16/18 at 0738, Until [place] 11/16/18 at 1423, Routine, Pain (scale 7-10) baclofen 2018- Yes 10mg 10 mg, Univers (LIORESAL) 804 Oral, TID, ity of tablet 10 05:45: [place] 00 on [facility] 11/16/18 at Branch 0045, Until Discontinu ed, Routine QUEtiapine Yes 100mg 100 mg, Uni vers (SEROQUEL) 8-04 Oral, QHS, ity of tablet 100 02:00: [place] mg 00 on [facility] 11/15/18 at Branch 2100, Until Discontinu ed, Routine divalproex Yes 125mg 125 mg, Uni vers (DEPAKOTE) 8-04 Oral, QHS, ity of EC tablet 02:00: First [place] 125 mg 00 on [facility] 11/15/18 at Branch 2100, Until Discontinu ed, Routine proMETHazin 2019- No 25mg 25 mg, Uni vers e 11-16 08- Oral, ity of (PHENERGAN) 01:15: 00:46 ONCE, 1 [place] tablet 25 00 :00 dose, [facility] Medic al mg 11/15/18 at Branch 2015, Routine gabapentin 2018-0 Yes 300mg 300 mg, Uni vers (NEURONTIN) 8- Oral, BID, it y of capsule 300 01:00: First dose [place] mg 00 on [facility] 11/15/18 at Branch 2000, Until Discontinu ed, Routine lactated 0 2019- No 1000mL at 150 Univ ers ringers IV 11-15 08-04 mL/hr, ity of infusion 23:45: 11:44 1,000 mL, Archie as 1,000 mL 00 :00 IV Medical Infusion, Branch CONTINUOUS , Starting [facility] 11/15/18 at 1845, Until 11/16/18 at 0644, Routine HYDROcodone 2019- No 1{tbl} Take 1 Tab Univers -acetaminop 11-15 by mouth ity of hen (NORCO) 22:50: 00:00 every 6 [place] 10-325 mg 54 :00 (six) Medical tablet hours as Branch needed. ALPRAZOLAM 2018- No Take by Uni vers ORAL 11-15 mouth. ity of 22:50: 00:00 [place] 54 :00 Medical Branch divalproex 2019- No Take by Uni vers sodium 11-15 [...] ity o f (PF)) 22:44: 12:38 Push, [place] injection 08 :16 Q6HPRN, Medical 12.5 mcg [...] Sat Medica l NaCl 0.9% 11/15/18 at Bran h (NS) 20 mL 1330, 20 syringe [...] Sat Medica l mg(2.5 mg 11/15/18 at Bran h base)/3 mL 1130, [place] nebulizer solution 3 mL FENTanyl PF 2019- No 50ug 50 mcg, Un you (SUBLIMAZE 11-15 Slow IV ity o f (PF)) 15:45: 14:55 Push, [place] injection 00 :00 ONCE, 1 Medical 50 mcg dose, Sat Branch 11/15/18 at 1045, Routine ondansetron 2019- No 4mg 4 mg, Slow Univers (ZOFRAN 11-15 IV Push, ity of (PF)) 15:45: 14:55 ONCE, 1 [place] injection 4 00 :00 dose, Sat Med ical mg 11/15/18 at Branch 1045, [place] traMADol 2019- No [id number] 50mg Take 1 Univers (ULTRAM) 50 10-31 9103 tablet by it y of mg tablet 00:00: 00:00 mouth [place] 00 :00 every 8 Medical (eight) Branch hours as needed for Pain (scale 4-6). CREON 2018-0 Yes Take by Univers 36,000-114, 7-11 mouth 3 ity o f 000- 00:00: (three) [place] 180,000 00 times Medical unit CpDR daily with Bran ch meals. CREON 0 Yes Take by Univers 36,000-114, 7-11 mouth [...] 3 ity o f 000- 00:00: (three) [place] 180,000 00 times Medical unit CpDR daily [...] 3 ity o f 000- 00:00: (three) [place] 180,000 00 times Medical unit CpDR daily [...] 3 ity o f 000- 00:00: (three) [place] 180,000 00 times Medical unit CpDR daily with Bran ch meals. CREON 2019-0 Yes Take by Univers 36,000-114, 7-11 mouth 3 ity o f 000- 00:00: (three) [place] 180,000 00 times Medical unit CpDR daily with Bran ch meals. CREON 2019-0 Yes Take by Univers 36,000-114, 7-11 mouth 3 ity o f 000- 00:00: (three) [place] 180,000 00 times Medical unit CpDR daily [...] 3 ity o f 000- 00:00: (three) [place] 180,000 00 times Medical unit CpDR daily [...] 3 ity o f 000- 00:00: (three) [place] 180,000 00 times Medical unit CpDR daily with Bran ch meals. CREON 2018-0 Yes Take by Univers 36,000-114, 7-11 mouth 3 ity o f 000- 00:00: (three) [place] 180,000 00 times Medical unit CpDR daily with Bran ch meals. CREON 2018-0 Yes Take by Univers 36,000-114, 7-11 mouth 3 ity o f 000- 00:00: (three) [place] 180,000 00 times Medical unit CpDR daily [...] 3 ity o f 000- 00:00: (three) [place] 180,000 00 times Medical unit CpDR daily [...] with Bran ch meals. dicyclomine 2019- No [id number] 20mg Take 1 Univers (BENTYL) 20 5-28 08-03 tablet by it y of mg tablet 00:00: 00:00 mouth 4 [place] 00 :00 (four) Medical times Branch daily as needed for Abdominal pain. ondansetron 2019- No [id number] 4mg Take 1 Univers (ZOFRAN) 4 5-28 08-03 tablet by ity of mg tablet 00:00: 00:00 mouth [place] 00 :00 every 8 Medical (eight) Branch hours as needed for Nausea and Vomiting (N/V). amLODIPine 2019- No [id number] 5mg Take 2 Univers 2.5 mg 4- 08-03 tablets by ity of tablet 00:00: 00:00 mouth at [place] 00 :00 bedtime. Medical Branch proMETHazin 2018- No [id number] 25mg Take 1 Univers e 25 mg 4-11 20- tablet by ity of tablet 00:00: 00:00 mouth [place] 00 :00 every 6 Medical (six) Branch hours as needed for Nausea and Vomiting (N/V). famotidine 2017-04- No 20mg Take 1 Univ ers (PEPCID) 20 2-07 08-03 tablet by it y of mg tablet 00:00: 00:00 mouth 2 [place] 00 :00 (two) Medical times Branch daily. furosemide 2015-04- No 20mg Take 1 Univ ers (LASIX) 20 05-01 tablet by ity of mg tablet 00:00: 00:00 mouth [place] 00 :00 every Medical morning. Branch KCL 2015-04- No 20meq Take 1 Univers (KLOR-CON 05-01 tablet by ity of M20) 20 mEq 00:00: 00:00 [place] tablet 00 :00 daily. Medical Branch dicyclomine 2018- No 20mg Take 1 Uni vers (BENTYL) 20 5-06 20- tablet by it y of mg [...] 1 tablet Common Potassium Potassium Spiri t [facility] Lexapro Lexapro Yes [place] 1 tablet Co mmon [facility] Seroquel XR Seroquel XR Yes [place] 1 tablet Common in the [facility] evening [facility] Phenergan Phenergan Yes [place] one tablet Common [facility] Doxycycline Doxycycline Yes [place] 1 capsule Common Hyclate Hyclate [facility] Azithromyci Azithromyci Yes [place] 2 tablets Common n n on the [facility] first day, - [facility] then [address] tablet [facility] daily for Medical 4 days Center Robaxin-750 Robaxin-750 Yes [place] 1 tablet Common [facility] Flonase Flonase Yes [place] 2 spray in Common each Spirit nostril - [facility] Diazepam Diazepam Yes [place] 1 tablet Common as needed [facility] PredniSONE PredniSONE Yes [place] 2 tablet Common daily x 5 Spirit days then - [facility] one tablet [facility] daily x 5 [facility] Gabapentin Gabapentin Yes [place] 1 capsule Common [facility] Losartan Losartan Yes [place] TAKE 1 Co mmon Potassium Potassium TABLET BY Spirit MOUTH - [facility] EVERY DAY [facility] Immunizations Ordered Filled Immunization Date Status Comments [facility] e Immunization Name Name SARS-COV-2 COVID-19 2021-03-25 Completed Unive rsity of MODERNA BOOSTER 00:00:00 [facility] ical VACCINE Branch SARS-COV-2 COVID-19 2021-03-25 Completed Unive rsity of MODERNA BOOSTER 00:00:00 [facility] ical VACCINE Branch SARS-COV-2 COVID-19 2021-03-25 Completed Unive rsity of MODERNA BOOSTER 00:00:00 [facility] ical VACCINE Branch SARS-COV-2 COVID-19 2021-03-25 Completed Unive rsity of MODERNA BOOSTER 00:00:00 [facility] ical VACCINE Branch SARS-COV-2 COVID-19 2021-03-25 Completed Unive rsity of MODERNA BOOSTER 00:00:00 [facility] ical VACCINE Branch SARS-COV-2 COVID-19 2021-03-25 Completed Unive rsity of MODERNA BOOSTER 00:00:00 [facility] ical VACCINE Branch SARS-COV-2 COVID-19 2021-03-25 Completed Unive rsity of MODERNA BOOSTER 00:00:00 [facility] ical VACCINE Branch SARS-COV-2 COVID-19 2021-03-25 Completed Unive rsity of MODERNA BOOSTER 00:00:00 [facility] ical VACCINE Branch SARS-COV-2 COVID-19 2021-03-25 Completed Unive rsity of MODERNA BOOSTER 00:00:00 [facility] ical VACCINE Branch SARS-COV-2 COVID-19 2021-03-25 Completed Unive rsity of MODERNA BOOSTER 00:00:00 [facility] ical VACCINE Branch SARS-COV-2 COVID-19 2021-03-25 Completed [...] COVID-19 2020-07-19 Completed Unive rsity of MODERNA 12+ YRS 00:00:00 [place] Med ical VACCINE Branch SARS-COV-2 COVID-19 2020-07-19 Completed Unive rsity of MODERNA 12+ YRS 00:00:00 [place] Med ical VACCINE Branch SARS-COV-2 COVID-19 2020-05-22 Completed Unive rsity of MODERNA VACCINE 00:00:00 [place] [facility] ical Branch SARS-COV-2 COVID-19 2020-05-22 Completed Unive rsity of MODERNA VACCINE 00:00:00 [place] [facility] ical Branch SARS-COV-2 COVID-19 2020-05-22 Completed Unive rsity of MODERNA VACCINE 00:00:00 [place] Med ical Branch SARS-COV-2 COVID-19 2020-05-22 Completed Unive rsity of MODERNA VACCINE 00:00:00 [place] [facility] ical Branch SARS-COV-2 COVID-19 2020-05-22 Completed Unive rsity of MODERNA VACCINE 00:00:00 [place] Med ical Branch SARS-COV-2 COVID-19 2020-05-22 Completed Unive rsity of MODERNA VACCINE 00:00:00 [place] [facility] ical Branch SARS-COV-2 COVID-19 2020-05-22 Completed [...] Completed Unive rsity of MODERNA VACCINE 00:00:00 [facility] Branch SARS-COV-2 COVID-19 2020-05-22 Completed Unive rsity of MODERNA VACCINE 00:00:00 [facility] Branch SARS-COV-2 COVID-19 2020-05-22 Completed Unive rsity of MODERNA VACCINE 00:00:00 [facility] Branch SARS-COV-2 COVID-19 2020-05-22 Completed Unive rsity of MODERNA VACCINE 00:00:00 [facility] Branch SARS-COV-2 COVID-19 2020-05-22 Completed Unive rsity of MODERNA VACCINE 00:00:00 [facility] Branch SARS-COV-2 COVID-19 2020-05-22 Completed Unive rsity of MODERNA VACCINE 00:00:00 [facility] Branch SARS-COV-2 COVID-19 2020-05-22 Completed Unive rsity of MODERNA VACCINE 00:00:00 [facility] Branch SARS-COV-2 COVID-19 2020-05-22 Completed Unive rsity of MODERNA VACCINE 00:00:00 [facility] Branch SARS-COV-2 COVID-19 2020-05-22 Completed Unive rsity of MODERNA 12+ YRS 00:00:00 [facility] VACCINE Branch SARS-COV-2 COVID-19 2020-05-22 Completed Unive rsity of MODERNA 12+ YRS 00:00:00 [facility] Influenza TIV (IM) 2013-02-[address] [facility] 00:00:00 [facility] Influenza Virus 2013-02-27 Completed Universit y of Vaccine 00:00:00 [facility] Influenza Virus 2013-02-27 Completed Universit y of Vaccine 00:00:00 [facility] Influenza Virus 2013-02-27 Completed Universit y of Vaccine 00:00:00 [facility] Influenza Virus 2013-02-27 Completed Universit y of Vaccine 00:00:00 [facility] Influenza Virus 2013-02-27 Completed Universit y of Vaccine 00:00:00 [facility] Influenza Virus 2013-02-27 Completed Universit y of Vaccine 00:00:00 [facility] Influenza Virus 2013-02-27 Completed Universit y of Vaccine 00:00:00 [facility] Influenza Virus 2013-02-27 Completed Universit y of Vaccine 00:00:00 [facility] Influenza Virus 2013-02-27 Completed Universit y of Vaccine 00:00:00 [facility] Influenza Virus 2013-02-27 Completed Universit y of Vaccine 00:00:00 [facility] Influenza Virus 2013-02-27 Completed Universit y of Vaccine 00:00:00 [facility] Influenza Virus 2013-02-27 Completed Universit y of Vaccine 00:00:00 [facility] Influenza Virus 2013-02-27 Completed Universit y of Vaccine 00:00:00 [facility] Influenza Virus 2013-02-27 Completed Universit y of Vaccine 00:00:00 [facility] Influenza Virus 2013-02-27 Completed Universit y of Vaccine 00:00:00 [facility] Influenza Virus 2013-02-27 Completed Universit y of Vaccine 00:00:00 [facility] Influenza Virus 2013-02-27 Completed Universit y of Vaccine 00:00:00 [facility] Influenza Virus 2013-02-27 Completed Universit y of Vaccine 00:00:00 [facility] Influenza Virus 2013-02-27 Completed Universit y of Vaccine 00:00:00 [facility] Influenza Virus 2013-02-27 Completed Universit y of Vaccine 00:00:00 [facility] Influenza Virus 2013-02-27 Completed Universit y of Vaccine 00:00:00 [facility] Influenza Virus 2013-02-27 Completed Universit y of Vaccine 00:00:00 [facility] Influenza Virus 2013-02-27 Completed Universit y of Vaccine 00:00:00 [facility] Influenza Virus 2013-02-27 Completed Universit y of Vaccine 00:00:00 [facility] Influenza Virus 2013-02-27 Completed Universit y of Vaccine 00:00:00 [facility] Influenza Virus 2013-02-27 Completed Universit y of Vaccine 00:00:00 [facility] Influenza Virus 2013-02-27 Completed Universit y of Vaccine 00:00:00 [facility] Influenza Virus 2013-02-27 Completed Universit y of Vaccine 00:00:00 [facility] Influenza Virus 2013-02-27 Completed Universit y of Vaccine 00:00:00 [facility] Influenza Virus 2013-02-27 Completed Universit y of Vaccine 00:00:00 [facility] Influenza Virus 2013-02-27 Completed Universit y of Vaccine 00:00:00 [facility] Influenza Virus 2013-02-27 Completed Universit y of Vaccine 00:00:00 [facility] Influenza Virus 2013-02-27 Completed Universit y of Vaccine 00:00:00 [facility] Influenza Virus 2013-02-27 Completed Universit y of Vaccine 00:00:00 [facility] Influenza Virus 2013-02-27 Completed Universit y of Vaccine 00:00:00 [facility] Influenza Virus 2013-02-27 Completed Universit y of Vaccine 00:00:00 [facility] Influenza Virus 2013-02-27 Completed Universit y of Vaccine 00:00:00 [facility] Influenza Virus 2013-02-27 Completed Universit y of Vaccine 00:00:00 [facility] Influenza Virus 2013-02-27 Completed Universit y of Vaccine 00:00:00 [facility] Influenza Virus 2013-02-27 Completed Universit y of Vaccine 00:00:00 [facility] Influenza Virus 2013-02-27 Completed Universit y of Vaccine 00:00:00 [facility] Influenza Virus 2013-02-27 Completed Universit y of Vaccine 00:00:00 [facility] Influenza Virus 2013-02-27 Completed Universit y of Vaccine 00:00:00 [facility] Influenza Virus 2013-02-27 Completed Universit y of Vaccine 00:00:00 [facility] Influenza Virus 2013-02-27 Completed Universit y of Vaccine 00:00:00 [facility] Influenza Virus 2013-02-27 Completed Universit y of Vaccine 00:00:00 [facility] Influenza Virus 2013-02-27 Completed Universit y of Vaccine 00:00:00 [facility] Influenza Virus 2013-02-27 Completed Universit y of Vaccine 00:00:00 [facility] Influenza Virus 2013-02-27 Completed Universit y of Vaccine 00:00:00 [facility] Influenza Virus 2013-02-27 Completed Universit y of Vaccine 00:00:00 [facility] Influenza Virus 2013-02-27 Completed Universit y of Vaccine 00:00:00 [facility] Influenza Virus 2013-02-27 Completed Universit y of Vaccine 00:00:00 [facility] Influenza Virus 2013-02-27 Completed Universit y of Vaccine 00:00:00 [facility] Influenza Virus 2013-02-27 Completed Universit y of Vaccine 00:00:00 [facility] Influenza Virus 2013-02-27 Completed Universit y of Vaccine 00:00:00 [facility] Influenza Virus 2013-02-27 Completed Universit y of Vaccine 00:00:00 [facility] Influenza Virus 2013-02-27 Completed Universit y of Vaccine 00:00:00 [facility] Influenza Virus 2013-02-27 Completed Universit y of Vaccine 00:00:00 [facility] Influenza Virus 2013-02-27 Completed Universit y of Vaccine 00:00:00 [facility] Influenza Virus 2013-02-27 Completed Universit y of Vaccine 00:00:00 [facility] Influenza Virus 2013-02-27 Completed Universit y of Vaccine 00:00:00 [facility] Influenza Virus 2013-02-27 Completed Universit y of Vaccine 00:00:00 [facility] Influenza Virus 2013-02-27 Completed Universit y of Vaccine 00:00:00 [facility] Influenza Virus 2013-02-27 Completed Universit y of Vaccine 00:00:00 [facility] Influenza Virus 2013-02-27 Completed Universit y of Vaccine 00:00:00 [facility] Influenza Virus 2013-02-27 Completed Universit y of Vaccine 00:00:00 [facility] Influenza Virus 2013-02-27 Completed Universit y of Vaccine 00:00:00 [facility] Influenza TIV (IM) 2013-02-[address] [facility] 00:00:00 [facility] Vital Signs Vital Name Observation Time Observation Value Comments Source WEIGHT 2020-09-05 85.548 kg 19:05:00 WEIGHT 2020-08-28 83.9 kg 04:41:00 WEIGHT 2020-08-27 84.959 kg 05:27:00 WEIGHT 2020-08-26 85.821 kg 02:50:00 HEIGHT 2020-08-26 152.4 cm 02:50:00 Systolic blood 2021-11-02 159 mm[Hg] University of pressure 13:00:00 [facility] Diastolic blood 2021-11-02 98 mm[Hg] [place] o f pressure 13:00:00 [facility] Heart rate 2021-11-02 90 /min University 13:00:00 [facility] Respiratory rate 2021-11-02 14 /min University 13:00:00 [facility] Oxygen saturation 2021-11-02 97 /min University of in Arterial blood 13:00:00 [facility] brandy by Pulse oximetry Branch Body temperature 2021-11-02 37.06 Roro University [facility] 09:49:00 [facility] Body height 2021-11-02 152.4 cm University of 09:49:00 [place] [facility] Body weight 2021-11-02 77.111 kg University of 09:49:00 [facility] BMI 2021-11-02 33.20 kg/m2 University of 09:49:00 [facility] Heart rate 2021-09-29 63 /min University of 15:42:00 [place] [facility] Respiratory rate 2021-09-29 18 /min University of 15:42:00 [facility] Oxygen saturation 2021-09-29 99 /min University of in Arterial blood 15:42:00 [facility] by Pulse oximetry Branch Systolic blood 2021-09-29 124 mm[Hg] University of pressure 15:40:00 [facility] Diastolic blood 2021-09-29 85 mm[Hg] University o f pressure 15:40:00 [facility] Body temperature 2021-09-29 36.39 Roro University of 14:41:00 [facility] Body height 2021-09-20 152.4 cm University of 15:00:00 [facility] Body weight 2021-09-20 78.5 kg University of 15:00:00 [facility] BMI 2021-09-20 33.80 kg/m2 University of 15:00:00 [facility] Systolic blood 2021-09-29 138 mm[Hg] University of pressure 15:15:00 [facility] Diastolic blood 2021-09-29 80 mm[Hg] University o f pressure 15:15:00 [facility] Heart rate 2021-09-29 63 /min University of 15:15:00 [facility] Respiratory rate 2021-09-29 11 /min University of 15:15:00 [facility] Oxygen saturation 2021-09-29 99 /min University of in Arterial blood 15:15:00 [facility] brandy by Pulse oximetry Branch Body temperature 2021-09-29 36.39 Roro University of 14:41:00 [facility] Body height 2021-09-20 152.4 cm University of 15:00:00 [facility] Body weight 2021-09-20 78.5 kg University of 15:00:00 [facility] BMI 2021-09-20 33.80 kg/m2 University of 15:00:00 [facility] Respiratory rate 2021-09-29 10 /min University of 14:31:00 [facility] Systolic blood 2021-09-08 112 mm[Hg] University of pressure 21:35:00 [facility] Diastolic blood 2021-09-08 77 mm[Hg] University o f pressure 21:35:00 [facility] Heart rate 2021-09-08 64 /min University of 21:35:00 [facility] Body temperature 2021-09-08 36.22 Roro University of 21:35:00 [facility] Respiratory rate 2021-09-08 18 /min University of 21:35:00 [facility] Oxygen saturation 2021-09-08 100 /min University of in Arterial blood 21:35:00 [facility] brandy by Pulse oximetry Branch Body height 2021-09-02 152.4 cm University of 00:59:00 [facility] Body weight 2021-09-02 78.5 kg University of 00:59:00 [facility] BMI 2021-09-02 33.80 kg/m2 University of 00:59:00 [facility] Systolic blood 2021-08-27 169 mm[Hg] University of pressure 20:00:00 [facility] Diastolic blood 2021-08-27 103 mm[Hg] University o f pressure 20:00:00 [facility] Heart rate 2021-08-27 66 /min University of 20:00:00 [facility] Respiratory rate 2021-08-27 11 /min University of 20:00:00 [facility] Oxygen saturation 2021-08-27 98 /min University of in Arterial blood 20:00:00 [facility] brandy by Pulse oximetry Branch Body temperature 2021-08-27 36.17 Roro Simultaneous University of 15:50:00 filing. User may [place] Medic al not have seen Branch previous data. Body height 2021-08-27 152.4 cm University of 15:50:00 [facility] Body weight 2021-08-27 81.647 kg University of 15:50:00 [facility] BMI 2021-08-27 35.15 kg/m2 University of 15:50:00 [facility] Systolic blood 2021-07-29 154 mm[Hg] University of pressure 16:16:00 [place] [facility] Diastolic blood 2021-07-29 91 mm[Hg] University o f pressure 16:16:00 [place] [facility] Heart rate 2021-07-29 92 /min University [facility] 16:16:00 [facility] Body temperature 2021-07-29 36.44 Roro University of 16:16:00 [place] [facility] Respiratory rate 2021-07-29 16 /min University [facility] 16:16:00 [facility] Oxygen saturation 2021-07-29 98 /min University of in Arterial blood 16:16:00 [facility] by Pulse oximetry Branch Body weight 2021-07-28 86.63 kg University of 18:00:00 [facility] BMI 2021-07-28 37.30 kg/m2 University of 18:00:00 [facility] Body height 2021-07-24 152.4 cm University of 00:00:00 [place] [facility] Systolic blood 2021-07-04 141 mm[Hg] [facility] pressure 18:05:00 [facility] Diastolic blood 2021-07-04 95 mm[Hg] [facility] 18:05[facility]00 [facility] Heart rate 2021-07-04 64 /min [facility] 18:05:00 [facility] Respiratory rate 2021-07-04 11 /min [facility] of 18:05:00 [facility] Oxygen saturation 2021-07-04 96 /min [facility] of in Arterial blood 18:05:00 [facility] by Pulse oximetry Branch Body temperature 2021-07-04 36.39 [place] [facility] of 17:48:00 [facility] Body height 2021-07-03 152.4 cm University of 19:51:00 [facility] Body weight 2021-07-03 81.6 kg University of 19:51:00 [facility] BMI 2021-07-03 35.13 kg/m2 University of 19:51:00 [facility] Systolic blood 2021-07-04 141 mm[Hg] [facility] 15:45:00 [facility] Diastolic blood 2021-07-04 97 mm[Hg] [facility] pressure 15:45:00 [facility] Heart rate 2021-07-04 81 /min [facility] of 15:45:00 [facility] Body temperature 2021-07-04 36.39 [place] [facility] 15:45:00 [facility] Respiratory rate 2021-07-04 20 /min [facility] 15:45:00 [place] [facility] Oxygen saturation 2021-07-04 100 /min [facility] of in Arterial blood 15:45:00 [facility] by Pulse oximetry Branch Body height 2021-07-03 152.4 cm University of 19:51:00 [facility] Body weight 2021-07-03 81.6 kg University of 19:51:00 [facility] BMI 2021-07-03 35.13 kg/m2 University of 19:51:00 [facility] Systolic blood 2021-06-04 164 mm[Hg] [facility] pressure 04:00:00 [facility] Diastolic blood 2021-06-04 104 mm[Hg] [facility] pressure 04:00:00 [facility] Heart rate 2021-06-04 64 /min [facility] of 04:00:00 [facility] Oxygen saturation 2021-06-04 98 /min [facility] in Arterial blood 04:00:00 [facility] by Pulse oximetry Branch Respiratory rate 2021-06-04 11 /min [facility] of 03:00:00 [facility] Body temperature 2021-06-03 35.89 [place] [facility] 19:49:00 [facility] Body height 2021-06-03 152.4 cm University of 19:49:00 [facility] Body weight 2021-06-03 81.647 kg University of 19:49:00 [facility] BMI 2021-06-03 35.15 kg/m2 University of 19:49:00 [facility] Systolic blood 2021-05-22 151 mm[Hg] [facility] pressure 07:00:00 [facility] Diastolic blood 2021-05-22 97 mm[Hg] [facility] pressure 07:00:00 [facility] Heart rate 2021-05-22 93 /min [facility] of 07:00:00 [facility] Oxygen saturation 2021-05-22 96 /min [facility] in Arterial blood 07:00:00 [facility] by Pulse oximetry Branch Body temperature 2021-05-22 37.61 [place] [facility] 05:24:00 [facility] Respiratory rate 2021-05-22 20 /min [facility] of 05:24:00 [facility] Body height 2021-05-22 152.4 cm University of 05:24:00 [facility] Body weight 2021-05-22 81.647 kg University of 05:24:00 [facility] BMI 2021-05-22 35.15 kg/m2 University of 05:24:00 [facility] Systolic blood 2021-05-18 139 mm[Hg] [facility] 15:16:00 [facility] Diastolic blood 2021-05-18 86 mm[Hg] [facility] pressure 15:16:00 [facility] Heart rate 2021-05-18 85 /min [facility] of 15:16:00 [facility] Body temperature 2021-05-18 36.39 [place] [facility] 15:16:00 [facility] Respiratory rate 2021-05-18 18 /min [facility] of 15:16:00 [facility] Body height 2021-05-18 152.4 cm [facility] of 15:16:00 [facility] Body weight 2021-05-18 87.862 kg University of 15:16:00 [facility] BMI 2021-05-18 37.83 kg/m2 University of 15:16:00 [facility] Oxygen saturation 2021-05-18 97 /min [facility] in Arterial blood 15:16:00 [facility] by Pulse oximetry Branch Systolic blood 2021-04-15 163 mm[Hg] [facility] pressure 19:38:00 [facility] Diastolic blood 2021-04-15 105 mm[Hg] [facility] pressure 19:38:00 [facility] Heart rate 2021-04-15 98 /min [facility] of 19:38:00 [facility] Body temperature 2021-04-15 37.06 [place] [facility] 19:38:00 [facility] Respiratory rate 2021-04-15 18 /min [facility] of 19:38:00 [facility] Body height 2021-04-15 152.4 cm University of 19:38:00 [facility] Body weight 2021-04-15 81.647 kg University of 19:38:00 [facility] BMI 2021-04-15 35.15 kg/m2 University of 19:38:00 [facility] Oxygen saturation 2021-04-15 97 /min [facility] in Arterial blood 19:38:00 [place] [facility] Pulse oximetry [facility] Systolic blood 2021-04-15 140 mm[Hg] [facility] pressure 19:20:00 [facility] Diastolic blood 2021-04-15 98 mm[Hg] [facility] pressure 19:20:00 [facility] Heart rate 2021-04-15 109 /min [facility] of 19:20:00 [facility] Body temperature 2021-04-15 36.94 [place] [facility] 19:20:00 [facility] Respiratory rate 2021-04-15 17 /min [facility] of 19:20:00 [facility] Body weight 2021-04-15 84.596 kg University of 19:20:00 [facility] BMI 2021-04-15 36.42 kg/m2 University of 19:20:00 [facility] Oxygen saturation 2021-04-15 98 /min [facility] in Arterial blood 19:20:00 [place] [facility] Pulse oximetry [facility] Systolic blood 2021-03-26 138 mm[Hg] [facility] pressure 03:00:00 [facility] Diastolic blood 2021-03-26 89 mm[Hg] [facility] pressure 03:00:00 [facility] Heart rate 2021-03-26 75 /min [facility] of 03:00:00 [facility] Respiratory rate 2021-03-26 12 /min [facility] of 03:00:00 [facility] Oxygen saturation 2021-03-26 99 /min [facility] of in Arterial blood 03:00:00 [facility] by Pulse oximetry Branch Body temperature 2021-03-26 37 [place] of 01:02:09 [facility] Body height 2021-03-26 152.4 cm University of 00:10:00 [facility] Body weight 2021-03-26 80.74 kg University of 00:10:00 [facility] BMI 2021-03-26 34.76 kg/m2 University of 00:10:00 [facility] Systolic blood 2021-03-21 173 mm[Hg] [facility] pressure 01:28:00 [facility] Diastolic blood 2021-03-21 104 mm[Hg] [facility] pressure 01:28:00 [facility] Heart rate 2021-03-21 74 /min University of 01:28:00 [facility] Respiratory rate 2021-03-21 22 /min [facility] of 01:28:00 [facility] Oxygen saturation 2021-03-21 96 /min [facility] in Arterial blood 01:28:00 [place] [facility] Pulse oximetry [facility] Body temperature 2021-03-20 37.17 [place] [facility] of 21:59:00 [facility] Body weight 2021-03-20 81.647 kg University of 21:59:00 [facility] BMI 2021-03-20 35.15 kg/m2 University of 21:59:00 [facility] Systolic blood 2021-02-13 159 mm[Hg] [facility] pressure 02:02:00 [facility] Diastolic blood 2021-02-13 95 mm[Hg] [facility] pressure 02:02:00 [facility] Body temperature 2021-02-13 36.67 [place] [facility] of 02:02:00 [facility] Respiratory rate 2021-02-13 17 /min [facility] of 02:02:00 [facility] Oxygen saturation 2021-02-13 93 /min [facility] in Arterial blood 02:02:00 [facility] by Pulse oximetry [facility] Heart rate 2021-02-13 73 /min [facility] of 01:00:00 [facility] Body height 2021-02-12 152.4 cm University of 19:07:00 [facility] Body weight 2021-02-12 86.183 kg University of 19:07:00 [facility] BMI 2021-02-12 37.11 kg/m2 University of 19:07:00 [facility] Systolic blood 2021-01-18 155 mm[Hg] [facility] pressure 05:45:00 [facility] Diastolic blood 2021-01-18 93 mm[Hg] [facility] pressure 05:45:00 [facility] Heart rate 2021-01-18 86 /min University 05:45:00 [facility] Respiratory rate 2021-01-18 14 /min [facility] of 05:45:00 [facility] Oxygen saturation 2021-01-18 99 /min [facility] in Arterial blood 05:45:00 [facility] by Pulse oximetry [facility] Body temperature 2021-01-18 37.06 [place] [facility] of 02:32:00 [facility] Body height 2021-01-18 152.4 cm University of 02:32:00 [facility] Body weight 2021-01-18 86.183 kg University of 02:32:00 [facility] BMI 2021-01-18 37.11 kg/m2 University of 02:32:00 [facility] Systolic blood 2021-01-07 117 mm[Hg] [facility] pressure 16:25:00 [facility] Diastolic blood 2021-01-07 79 mm[Hg] [facility] pressure 16:25:00 [facility] Heart rate 2021-01-07 85 /min [facility] of 16:25:00 [facility] Body temperature 2021-01-07 36.89 [place] [facility] of 16:25:00 [facility] Respiratory rate 2021-01-07 16 /min [facility] of 16:25:00 [facility] Body height 2021-01-07 152.4 cm [facility] of 16:25:00 [facility] Body weight 2021-01-07 77.111 kg University of 16:25:00 [facility] BMI 2021-01-07 33.20 kg/m2 University of 16:25:00 [facility] Oxygen saturation 2021-01-07 96 /min [facility] in Arterial blood 16:25:00 [facility] by Pulse oximetry Branch Systolic blood 2020-12-30 148 mm[Hg] [facility] 22:35:00 [facility] Diastolic blood 2020-12-30 107 mm[Hg] [facility] pressure 22:35:00 [facility] Heart rate 2020-12-30 78 /min [facility] of 22:35:00 [facility] Respiratory rate 2020-12-30 18 /min [facility] of 22:35:00 [facility] Oxygen saturation 2020-12-30 97 /min [facility] in Arterial blood 22:35:00 [facility] by Pulse oximetry Branch Body temperature 2020-12-30 37.44 [place] [facility] of 18:12:00 [facility] Body height 2020-12-30 152.4 cm University of 18:12:00 [facility] Body weight 2020-12-30 77.111 kg University of 18:12:00 [facility] BMI 2020-12-30 33.20 kg/m2 University of 18:12:00 [facility] Systolic blood 2020-12-30 122 mm[Hg] [facility] pressure 15:13:00 [facility] Diastolic blood 2020-12-30 87 mm[Hg] [facility] pressure 15:13:00 [facility] Heart rate 2020-12-30 83 /min [facility] of 15:13:00 [facility] Body temperature 2020-12-30 36.83 [place] [facility] of 15:13:00 [facility] Respiratory rate 2020-12-30 18 /min [facility] of 15:13:00 [facility] Body height 2020-12-30 152.4 cm [facility] of 15:13:00 [facility] Body weight 2020-12-30 83.553 kg University of 15:13:00 [facility] BMI 2020-12-30 35.97 kg/m2 University of 15:13:00 [facility] Systolic blood 2020-12-16 123 mm[Hg] [facility] pressure 15:21:00 [facility] Diastolic blood 2020-12-16 90 mm[Hg] [facility] pressure 15:21:00 [facility] Heart rate 2020-12-16 81 /min [facility] of 15:21:00 [facility] Body temperature 2020-12-16 36.83 [place] [facility] 15:21:00 [facility] Respiratory rate 2020-12-16 18 /min [facility] of 15:21:00 [facility] Body height 2020-12-16 152.4 cm University of 15:21:00 [facility] Body weight 2020-12-16 83.915 kg University of 15:21:00 [facility] BMI 2020-12-16 36.13 kg/m2 University of 15:21:00 [facility] Systolic blood 2020-12-05 167 mm[Hg] [facility] pressure 22:45:00 [facility] Diastolic blood 2020-12-05 101 mm[Hg] [facility] pressure 22:45:00 [facility] Heart rate 2020-12-05 76 /min [facility] of 22:45:00 [facility] Respiratory rate 2020-12-05 20 /min [facility] of 22:45:00 [facility] Oxygen saturation 2020-12-05 97 /min [facility] in Arterial blood 22:45:00 [facility] by Pulse oximetry [place] Body temperature 2020-12-05 37.11 [place] [facility] of 19:05:00 [facility] Body weight 2020-12-05 77.111 kg University of 19:05:00 [facility] BMI 2020-12-05 33.20 kg/m2 University of 19:05:00 [facility] Systolic blood 2020-10-12 111 mm[Hg] [facility] pressure 20:04:00 [facility] Diastolic blood 2020-10-12 77 mm[Hg] [facility] pressure 20:04:00 [facility] Heart rate 2020-10-12 74 /min [facility] of 20:04:00 [facility] Body temperature 2020-10-12 36.06 [place] [facility] of 20:04:00 [facility] Respiratory rate 2020-10-12 18 /min [facility] of 20:04:00 [facility] Oxygen saturation 2020-10-12 97 /min [facility] in Arterial blood 20:04:00 [facility] by Pulse oximetry [facility] Body height 2020-10-12 152.4 cm University of :36:00 [facility] Body weight 2020-10-12 84.46 kg University of 02:36:00 [facility] BMI 2020-10-12 36.36 kg/m2 University of :36:00 [facility] Systolic blood 2020-10-12 111 mm[Hg] [facility] pressure 20:04:00 [facility] Diastolic blood 2020-10-12 77 mm[Hg] [facility] pressure 20:04:00 [facility] Heart rate 2020-10-12 74 /min [facility] of 20:04:00 [facility] Body temperature 2020-10-12 36.06 [place] [facility] of 20:04:00 [facility] Respiratory rate 2020-10-12 18 /min [facility] of 20:04:00 [facility] Oxygen saturation 2020-10-12 97 /min [facility] in Arterial blood 20:04:00 [facility] by Pulse oximetry Branch Body height 2020-10-12 152.4 cm University of :36:00 [facility] Body weight 2020-10-12 84.46 kg University of 02:36:00 [facility] BMI 2020-10-12 36.36 kg/m2 University of 02:36:00 [facility] Systolic blood 2020-10-05 129 mm[Hg] [facility] pressure 01:00:00 [facility] Diastolic blood 2020-10-05 88 mm[Hg] [facility] pressure 01:00:00 [facility] Heart rate 2020-10-05 72 /min [facility] of 01:00:00 [facility] Respiratory rate 2020-10-05 18 /min [facility] of 01:00:00 [facility] Oxygen saturation 2020-10-05 95 /min [facility] in Arterial blood 01:00:00 [facility] by Pulse oximetry [facility] Body temperature 2020-10-04 37.72 [place] [facility] of 22:44:00 [facility] Body weight 2020-10-04 77.111 kg University of 22:44:00 [facility] BMI 2020-10-04 33.20 kg/m2 University of 22:44:00 [facility] Systolic blood 2020-10-05 129 mm[Hg] [facility] pressure 01:00:00 [facility] Diastolic blood 2020-10-05 88 mm[Hg] [facility] pressure 01:00:00 [facility] Heart rate 2020-10-05 72 /min [facility] of 01:00:00 [facility] Respiratory rate 2020-10-05 18 /min [facility] of 01:00:00 [facility] Oxygen saturation 2020-10-05 95 /min [facility] in Arterial blood 01:00:00 [place] [facility] Body temperature 2020-10-04 37.72 [place] [facility] of 22:44:00 [facility] Body weight 2020-10-04 77.111 kg University of 22:44:00 [facility] BMI 2020-10-04 33.20 kg/m2 University of 22:44:00 [facility] WEIGHT 2020-09-05 85.548 kg 19:05:00 WEIGHT 2020-08-28 83.9 kg 04:41:00 WEIGHT 2020-08-27 84.959 kg 05:27:00 WEIGHT 2020-08-26 85.821 kg 02:50:00 HEIGHT 2020-08-26 152.4 cm 02:50:00 Systolic blood 2020-08-05 157 mm[Hg] [facility] pressure 13:12:00 [facility] Diastolic blood 2020-08-05 128 mm[Hg] [facility] pressure 13:12:00 [facility] Heart rate 2020-08-05 95 /min [facility] of 13:12:00 [facility] Body temperature 2020-08-05 36.67 [place] [facility] 13:12:00 [facility] Respiratory rate 2020-08-05 18 /min [facility] of 13:12:00 [facility] Body weight 2020-08-05 77.111 kg University of 13:12:00 [facility] BMI 2020-08-05 33.20 kg/m2 University of 13:12:00 [facility] Oxygen saturation 2020-08-05 98 /min [facility] in Arterial blood 13:12:00 [place] [facility] Pulse o[facility] Systolic blood 2020-08-05 157 mm[Hg] [facility] pressure 13:12:00 [facility] Diastolic blood 2020-08-05 128 mm[Hg] [facility] pressure 13:12:00 [facility] Heart rate 2020-08-05 95 /min [facility] of 13:12:00 [facility] Body temperature 2020-08-05 36.67 [place] [facility] 13:12:00 [facility] Respiratory rate 2020-08-05 18 /min [facility] of 13:12:00 [facility] Body weight 2020-08-05 77.111 kg University of 13:12:00 [facility] BMI 2020-08-05 33.20 kg/m2 University of 13:12:00 [facility] Oxygen saturation 2020-08-05 98 /min [facility] in Arterial blood 13:12:00 [facility] Pulse oximetry [facility] Systolic blood 2020-07-18 184 mm[Hg] [facility] pressure 13:22:00 [facility] Diastolic blood 2020-07-18 110 mm[Hg] [facility] pressure 13:22:00 [facility] Heart rate 2020-07-18 71 /min [facility] of 13:22:00 [facility] Respiratory rate 2020-07-18 18 /min [facility] of 13:22:00 [facility] Oxygen saturation 2020-07-18 100 /min [facility] in Arterial blood 13:22:00 [facility] by Pulse oximetry [facility] Body temperature 2020-07-18 36.56 [place] [facility] of 12:49:00 [facility] Body height 2020-07-14 152.4 cm University of 16:45:00 [facility] Body weight 2020-07-14 77.111 kg University of 16:45:00 [facility] BMI 2020-07-14 33.20 kg/m2 University of 16:45:00 [facility] Systolic blood 2020-07-18 184 mm[Hg] [facility] pressure 13:22:00 [facility] Diastolic blood 2020-07-18 110 mm[Hg] [facility] pressure 13:22:00 [facility] Heart rate 2020-07-18 71 /min [facility] 13:22:00 [facility] Respiratory rate 2020-07-18 18 /min [facility] 13:22:00 [facility] Oxygen saturation 2020-07-18 100 /min [facility] in Arterial blood 13:22:00 [place] [facility]ulse o[facility] Body temperature 2020-07-18 36.56 [place] [facility] 12:49:00 [facility] Body height 2020-07-14 152.4 cm [facility] of 16:45:00 [facility] Body weight 2020-07-14 77.111 kg University of 16:45:00 [facility] BMI 2020-07-14 33.20 kg/m2 University of 16:45:00 [facility] Systolic blood 2020-07-18 180 mm[Hg] [facility] pressure 12:59:00 [facility] Diastolic blood 2020-07-18 88 mm[Hg] [facility] pressure 12:59:00 [facility] Heart rate 2020-07-18 74 /min [facility] of 12:59:00 [facility] Respiratory rate 2020-07-18 17 /min [facility] of 12:59:00 [facility] Oxygen saturation 2020-07-18 100 /min [facility] in Arterial blood 12:59:00 [place] [facility] Body temperature 2020-07-18 36.56 [place] [facility] 12:49:00 [facility] Body height 2020-07-14 152.4 cm [facility] of 16:45:00 [facility] Body weight 2020-07-14 77.111 kg University of 16:45:00 [facility] BMI 2020-07-14 33.20 kg/m2 University of 16:45:00 [facility] Systolic blood 2020-07-18 180 mm[Hg] [facility] pressure 12:59:00 [facility] Diastolic blood 2020-07-18 88 mm[Hg] [facility] pressure 12:59:00 [facility] Heart rate 2020-07-18 74 /min [facility] of 12:59:00 [facility] Respiratory rate 2020-07-18 17 /min [facility] of 12:59:00 [facility] Oxygen saturation 2020-07-18 100 /min [facility] in Arterial blood 12:59:00 [place] [facility] Body temperature 2020-07-18 36.56 [place] [facility] 12:49:00 [facility] Body height 2020-07-14 152.4 cm University of 16:45:00 [facility] Body weight 2020-07-14 77.111 kg University of 16:45:00 [facility] BMI 2020-07-14 33.20 kg/m2 University of 16:45:00 [facility] Systolic blood 2020-07-08 187 mm[Hg] [facility] 02[facility] Diastolic blood 2020-07-08 102 mm[Hg] [facility] pressure 02:00:00 [facility] Heart rate 2020-07-08 84 /min [facility] 02:00[facility]00 [facility] Respiratory rate 2020-07-08 20 /min [facility] 02:00:00 [facility] Oxygen saturation 2020-07-08 100 /min [facility] in Arterial blood 02:00:00 [facility] Body temperature 2020-07-07 37.22 [place]oro [facility] 23:45:00 [facility] Body weight 2020-07-07 81.194 kg University of 23:45:00 [facility] BMI 2020-07-07 34.96 kg/m2 [facility] 23:45:00 [facility] Systolic blood 2020-07-08 187 mm[Hg] [facility] pressure 02:00:00 [facility] Diastolic blood 2020-07-08 102 mm[Hg] [facility] pressure 02:00:00 [facility] Heart rate 2020-07-08 84 /min [facility] 02:00:00 [facility] Respiratory rate 2020-07-08 20 /min [facility] 02:00:00 [facility] Oxygen saturation 2020-07-08 100 /min [facility] in Arterial blood 02:00:00 [facility] by Pulse oximetry [facility] Body temperature 2020-07-07 37.22 [place] [facility] 23:45:00 [facility] Body weight 2020-07-07 81.194 kg [facility] 23:45:00 [facility] BMI 2020-07-07 34.96 kg/m2 [facility] 23:45:00 [facility] Systolic blood 2020-07-04 168 mm[Hg] [facility] pressure 13:34:00 [facility] Diastolic blood 2020-07-04 94 mm[Hg] [facility] pressure 13:34:00 [facility] Heart rate 2020-07-04 63 /min [facility] 13:34:00 [facility] Oxygen saturation 2020-07-04 100 /min [facility] in Arterial blood 13:34:00 [facility]ulse [facility] Respiratory rate 2020-07-04 12 /min [facility] 13:23:00 [facility] Body temperature 2020-07-04 36.72 [place] [facility] 13:03:00 [facility] Body height 2020-07-01 152.4 cm [facility] 17:45:00 [facility] Body weight 2020-07-01 81.647 kg [facility] of 17:45:00 [facility] BMI 2020-07-01 35.15 kg/m2 [facility] 17:45:00 [facility] Systolic blood 2020-07-04 168 mm[Hg] [facility] pressure 13:34:00 [facility] Diastolic blood 2020-07-04 94 mm[Hg] [facility] pressure 13:34:00 [facility] Heart rate 2020-07-04 63 /min [facility] 13:34:00 [facility] Oxygen saturation 2020-07-04 100 /min [facility] in Arterial blood 13:34:00 [place] [facility] Respiratory rate 2020-07-04 12 /min [facility] 13:23:00 [facility] Body temperature 2020-07-04 36.72 [place] [facility] 13:03:00 [facility] Body height 2020-07-01 152.4 cm [facility] 17:45:00 [facility] Body weight 2020-07-01 81.647 kg [facility] of 17:45:00 [facility] BMI 2020-07-01 35.15 kg/m2 [facility] of 17:45:00 [facility] Systolic blood 2020-06-20 148 mm[Hg] [facility] pressure 14:33:00 [facility] Diastolic blood 2020-06-20 86 mm[Hg] [facility] pressure 14:33:00 [facility] Heart rate 2020-06-20 70 /min [facility] 14:33:00 [facility] Respiratory rate 2020-06-20 11 /min [facility] 14:33:00 [facility] Oxygen saturation 2020-06-20 98 /min [facility] in Arterial blood 14:33:00 [place] [facility] Body temperature 2020-06-20 36.33 [place] [facility] 14:18:00 [facility] Body height 2020-06-20 152.4 cm [facility] 12:30:00 [facility] Body weight 2020-06-20 81.647 kg [facility] of 12:30:00 [facility] BMI 2020-06-20 35.15 kg/m2 [facility] 12:30:00 [facility] Systolic blood 2020-06-20 148 mm[Hg] [facility] pressure 14:33:00 [facility] Diastolic blood 2020-06-20 86 mm[Hg] [facility] pressure 14:33:00 [facility] Heart rate 2020-06-20 70 /min [facility] 14:33:00 [facility] Respiratory rate 2020-06-20 11 /min [facility] 14:33:00 [facility] Oxygen saturation 2020-06-20 98 /min [facility] in Arterial blood 14:33:00 [place] [facility] Body temperature 2020-06-20 36.33 [place] [facility] 14:18:00 [facility] Body height 2020-06-20 152.4 cm [facility] of 12:30:00 [facility] Body weight 2020-06-20 81.647 kg [facility] of 12:30:00 [facility] BMI 2020-06-20 35.15 kg/m2 [facility] of 12:30:00 [facility] Respiratory rate 2020-06-20 17 /min [facility] 14:12:00 [facility] Respiratory rate 2020-06-20 17 /min [facility] 14:12:00 [facility] Systolic blood 2020-05-07 122 mm[Hg] [facility] pressure 00:05:00 [facility] Diastolic blood 2020-05-07 77 mm[Hg] [facility] pressure 00:05:00 [facility] Heart rate 2020-05-07 61 /min [facility] 00:05:00 [facility] Respiratory rate 2020-05-07 17 /min [facility] 00:05:00 [facility] Oxygen saturation 2020-05-07 100 /min [facility] in Arterial blood 00:05:00 [facility] by Pulse oxim[facility] Body temperature 2020-05-06 37.06 [place] [facility] 21:17:00 [facility] Body height 2020-05-06 152.4 cm [facility] of 21:17:00 [facility] Body weight 2020-05-06 77.111 kg [facility] of 21:17:00 [facility] BMI 2020-05-06 33.20 kg/m2 [facility] of 21:17:00 [facility] Systolic blood 2020-05-07 122 mm[Hg] [facility] pressure 00:05:00 [facility] Diastolic blood 2020-05-07 77 mm[Hg] [facility] pressure 00:05:00 [facility] Heart rate 2020-05-07 61 /min [facility] 00:05:00 [facility] Respiratory rate 2020-05-07 17 /min [facility] 00:05:00 [facility] Oxygen saturation 2020-05-07 100 /min [facility] in Arterial blood 00:05:00 [place] [facility] Body temperature 2020-05-06 37.06 [place] [facility] 21:17:00 [facility] Body height 2020-05-06 152.4 cm [facility] 21:17:00 [facility] Body weight 2020-05-06 77.111 kg [facility] 21:17:00 [facility] BMI 2020-05-06 33.20 kg/m2 [facility] 21:17:00 [facility] Systolic blood 2020-03-26 170 mm[Hg] [facility] pressure 07:00:00 [facility] Diastolic blood 2020-03-26 110 mm[Hg] [facility] pressure 07:00:00 [facility] Heart rate 2020-03-26 77 /min [facility] 07:00:00 [facility] Respiratory rate 2020-03-26 18 /min [facility] 07:00:00 [facility] Oxygen saturation 2020-03-26 96 /min [facility] in Arterial blood 07:00:00 [facility] Body temperature 2020-03-26 37.67 [place] [facility] 03:07:00 [facility] Body height 2020-03-26 152.4 cm [facility] 03:07:00 [facility] Body weight 2020-03-26 77.111 kg [facility] 03:07:00 [facility] BMI 2020-03-26 33.20 kg/m2 [facility] 03:07:00 [facility] Systolic blood 2020-03-26 170 mm[Hg] [facility] pressure 07:00:00 [facility] Diastolic blood 2020-03-26 110 mm[Hg] [facility] pressure 07:00:00 [facility] Heart rate 2020-03-26 77 /min [facility] 07:00:00 [facility] Respiratory rate 2020-03-26 18 /min [facility] 07:00:00 [facility] Oxygen saturation 2020-03-26 96 /min [facility] in Arterial blood 07:00:00 [facility] Body temperature 2020-03-26 37.67 [place] [facility] 03:07:00 [facility] Body height 2020-03-26 152.4 cm [facility] 03:07:00 [facility] Body weight 2020-03-26 77.111 kg [facility] of 03:07:00 [facility] BMI 2020-03-26 33.20 kg/m2 [facility] 03:07:00 [facility] Systolic blood 2020-02-08 134 mm[Hg] [facility] pressure 20:21:00 [facility] Diastolic blood 2020-02-08 94 mm[Hg] [facility] pressure 20:21:00 [facility] Heart rate 2020-02-08 76 /min [facility] 20:21:00 [facility] Body temperature 2020-02-08 36.11 [place] [facility] 20:21:00 [facility] Respiratory rate 2020-02-08 17 /min [facility] 20:21:00 [facility] Oxygen saturation 2020-02-08 100 /min [facility] in Arterial blood 20:21:00 [facility] by Pulse oximetry [facility] Body weight 2020-02-03 80.468 kg [facility] of 08:16:00 [facility] BMI 2020-02-03 34.65 kg/m2 [facility] of 08:16:00 [facility] Systolic blood 2020-02-08 134 mm[Hg] [facility] pressure 20:21:00 [facility] Diastolic blood 2020-02-08 94 mm[Hg] [facility] pressure 20:21:00 [facility] Heart rate 2020-02-08 76 /min [facility] 20:21:00 [facility] Body temperature 2020-02-08 36.11 [place] [facility] 20:21:00 [facility] Respiratory rate 2020-02-08 17 /min [facility] 20::00 [facility] Oxygen saturation 2020-02-08 100 /min [facility] in Arterial blood 20:21:00 [facility] by Pulse oxim[facility] Body weight 2020-02-03 80.468 kg [facility] 08:16:00 [facility] BMI 2020-02-03 34.65 kg/m2 [facility] 08:16:00 [facility] Systolic blood 2019-12-18 113 mm[Hg] [facility] pressure 23:30:00 [facility] Diastolic blood 2019-12-18 76 mm[Hg] [facility] pressure 23:30:00 [facility] Heart rate 2019-12-18 57 /min [facility] 23:30:00 [facility] Respiratory rate 2019-12-18 18 /min [facility] 23:30:00 [facility] Oxygen saturation 2019-12-18 99 /min [facility] in Arterial blood 23:30:00 [facility] by Pulse oximetry [place] Body temperature 2019-12-18 36.67 [place] [facility] 20:24:00 [facility] Body height 2019-12-18 152.4 cm [facility] of 20:24:00 [facility] Body weight 2019-12-18 77.111 kg [facility] of 20:24:00 [facility] BMI 2019-12-18 33.20 kg/m2 [facility] 20:24:00 [facility] Systolic blood 2019-12-18 113 mm[Hg] [facility] pressure 23:30:00 [facility] Diastolic blood 2019-12-18 76 mm[Hg] [facility] pressure 23:30:00 [facility] Heart rate 2019-12-18 57 /min [facility] 23:30:00 [facility] Respiratory rate 2019-12-18 18 /min [facility] 23:30:00 [facility] Oxygen saturation 2019-12-18 99 /min [facility] in Arterial blood 23:30:00 [facility] by Pulse oxim[facility] Body temperature 2019-12-18 36.67 [place] [facility] 20:24:00 [facility] Body height 2019-12-18 152.4 cm [facility] 20:24:00 [facility] Body weight 2019-12-18 77.111 kg [facility] of 20:24:00 [facility] BMI 2019-12-18 33.20 kg/m2 [facility] 20:24:00 [facility] Systolic blood 2019-08-22 159 mm[Hg] [facility] pressure 04:28:00 [facility] Diastolic blood 2019-08-22 99 mm[Hg] [facility] pressure 04:28:00 [facility] Heart rate 2019-08-22 66 /min [facility] 04:28:00 [facility] Respiratory rate 2019-08-22 18 /min [facility] 04:28:00 [facility] Oxygen saturation 2019-08-22 95 /min [facility] in Arterial blood 04:28:00 [facility] by Pulse oxim[facility] Body temperature 2019-08-22 36.61 [place] [facility] 00:48:43 [facility] Body height 2019-08-22 152.4 cm [facility] of 00:44:00 [facility] Body weight 2019-08-22 86.183 kg [facility] of 00:44:00 [facility] BMI 2019-08-22 37.11 kg/m2 [facility] 00:44:00 [facility] Systolic blood 2019-08-22 159 mm[Hg] [facility] pressure 04:28:00 [facility] Diastolic blood 2019-08-22 99 mm[Hg] [facility] pressure 04:28:00 [facility] Heart rate 2019-08-22 66 /min [facility] 04:28:00 [facility] Respiratory rate 2019-08-22 18 /min [facility] 04:28:00 [facility] Oxygen saturation 2019-08-22 95 /min [facility] in Arterial blood 04:28:00 [place] [facility] Body temperature 2019-08-22 36.61 [place] [facility] 00:48:43 [facility] Body height 2019-08-22 152.4 cm [facility] of 00:44:00 [facility] Body weight 2019-08-22 86.183 kg [facility] of 00:44:00 [facility] BMI 2019-08-22 37.11 kg/m2 [facility] 00:44:00 [facility] Heart rate 2019-06-26 93 /min [facility] 00:53:00 [facility] Oxygen saturation 2019-06-26 94 /min [facility] in Arterial blood 00:53:00 [facility] by Pulse oxim[facility] Systolic blood 2019-06-26 149 mm[Hg] [facility] pressure 00:45:00 [facility] Diastolic blood 2019-06-26 106 mm[Hg] [facility] pressure 00:45:00 [facility] Respiratory rate 2019-06-26 16 /min [facility] 00:45:00 [facility] Body temperature 2019-06-25 37.17 [place] [facility] 20:48:00 [facility] Body height 2019-06-25 152.4 cm [facility] 20:48:00 [facility] Body weight 2019-06-25 88.451 kg [facility] of 20:48:00 [facility] BMI 2019-06-25 38.08 kg/m2 [facility] 20:48:00 [facility] Heart rate 2019-06-26 93 /min [facility] 00:53:00 [facility] Oxygen saturation 2019-06-26 94 /min [facility] in Arterial blood 00:53:00 [facility] Systolic blood 2019-06-26 149 mm[Hg] [facility] pressure 00:45:00 [facility] Diastolic blood 2019-06-26 106 mm[Hg] [facility] pressure 00:45:00 [facility] Respiratory rate 2019-06-26 16 /min [facility] 00:45:00 [facility] Body temperature 2019-06-25 37.17 [place] [facility] 20:48:00 [facility] Body height 2019-06-25 152.4 cm [facility] 20:48:00 [facility] Body weight 2019-06-25 88.451 kg [facility] of 20:48:00 [facility] BMI 2019-06-25 38.08 kg/m2 [facility] 20:48:00 [facility] Systolic blood 2019-06-20 157 mm[Hg] [facility] pressure 00:30:00 [facility] Diastolic blood 2019-06-20 89 mm[Hg] [facility] pressure 00:30:00 [facility] Heart rate 2019-06-20 70 /min [facility] 00:30:00 [facility] Oxygen saturation 2019-06-20 97 /min [facility] in Arterial blood 00:30:00 [facility] Respiratory rate 2019-06-20 14 /min [facility] 00:04:00 [facility] Body height 2019-06-19 152.4 cm [facility] 19:46:00 [facility] Body weight 2019-06-19 88.451 kg [facility] of 19:46:00 [facility] BMI 2019-06-19 38.08 kg/m2 [facility] 19:46:00 [facility] Body temperature 2019-06-19 37.06 [place] [facility] 19:45:00 [facility] Systolic blood 2019-06-20 157 mm[Hg] [facility] pressure 00:30:00 [facility] Diastolic blood 2019-06-20 89 mm[Hg] [facility] pressure 00:30:00 [facility] Heart rate 2019-06-20 70 /min [facility] 00:30:00 [facility] Oxygen saturation 2019-06-20 97 /min [facility] in Arterial blood 00:30:00 [place] [facility] Respiratory rate 2019-06-20 14 /min [facility] 00:04:00 [facility] Body height 2019-06-19 152.4 cm [facility] 19:46:00 [facility] Body weight 2019-06-19 88.451 kg [facility] of 19:46:00 [facility] BMI 2019-06-19 38.08 kg/m2 [facility] of 19:46:00 [facility] Body temperature 2019-06-19 37.06 [place] [facility] 19:45:00 [facility] Systolic blood 2019-05-20 141 mm[Hg] [facility] pressure 02:59:00 [facility] Diastolic blood 2019-05-20 97 mm[Hg] [facility] pressure 02:59:00 [facility] [place] Heart rate 2019-05-20 86 /min [facility] 02:59:00 [facility] Respiratory rate 2019-05-20 16 /min [facility] 02:59:00 [facility] Oxygen saturation 2019-05-20 94 /min [facility] in Arterial blood 02:59:00 [facility] Pulse oxim[facility] Body temperature 2019-05-20 36.61 [place] [facility] 00:45:32 [facility] Body weight 2019-05-20 81.647 kg [facility] of 00:16:00 [facility] BMI 2019-05-20 35.15 kg/m2 [facility] 00:16:00 [facility] Systolic blood 2019-05-20 141 mm[Hg] [facility] pressure 02:59:00 [facility] Diastolic blood 2019-05-20 97 mm[Hg] [facility] pressure 02:59:00 [facility] Heart rate 2019-05-20 86 /min [facility] 02:59:00 [facility] Respiratory rate 2019-05-20 16 /min [facility] 02:59:00 [facility] Oxygen saturation 2019-05-20 94 /min [facility] in Arterial blood 02:59:00 [facility] Pulse o[facility] Body temperature 2019-05-20 36.61 [place] [facility] 00:45:32 [facility] Body weight 2019-05-20 81.647 kg [facility] of 00:16:00 [facility] BMI 2019-05-20 35.15 kg/m2 [facility] 00:16:00 [facility] Systolic blood 2018-12-18 134 mm[Hg] [facility] pressure 13:38:00 [facility] Diastolic blood 2018-12-18 96 mm[Hg] [facility] pressure 13:38:00 [facility] Heart rate 2018-12-18 75 /min [facility] of 13:38:00 [facility] Respiratory rate 2018-12-18 18 /min [facility] 13:38:00 [facility] Body height 2018-12-18 152.4 cm [facility] of 13:38:00 [facility] Body weight 2018-12-18 88.451 kg [facility] of 13:38:00 [facility] BMI 2018-12-18 38.08 kg/m2 [facility] 13:38:00 [facility] Systolic blood 2018-12-08 159 mm[Hg] [facility] pressure 20:03:00 [facility] Diastolic blood 2018-12-08 111 mm[Hg] [facility] pressure 20:03:00 [facility] Body height 2018-12-08 152.4 cm [facility] 20:03:00 [facility] Body weight 2018-12-08 88.451 kg [facility] of 20:03:00 [facility] BMI 2018-12-08 38.08 kg/m2 [facility] 20:03:00 [facility] Systolic blood 2018-12-05 180 mm[Hg] [facility] pressure 13:04:00 [facility] Diastolic blood 2018-12-05 110 mm[Hg] [facility] pressure 13:04:00 [facility] Heart rate 2018-12-05 74 /min [facility] 13:04:00 [facility] Respiratory rate 2018-12-05 18 /min [facility] 12:57:00 [facility] Body height 2018-12-05 152.4 cm [facility] 12:57:00 [facility] Body weight 2018-12-05 88.451 kg [facility] of 12:57:00 [facility] BMI 2018-12-05 38.08 kg/m2 [facility] 12:57:00 [facility] Systolic blood 2018-12-01 139 mm[Hg] [facility] pressure 23:03:00 [facility] Diastolic blood 2018-12-01 72 mm[Hg] [facility] pressure 23:03:00 [facility] Heart rate 2018-12-01 64 /min [facility] 23:03:00 [facility] Respiratory rate 2018-12-01 13 /min [facility] 22:02:00 [facility] Body temperature 2018-12-01 36.33 [place] [facility] 19:27:00 [facility] Body height 2018-12-01 152.4 cm [facility] 19:27:00 [facility] Body weight 2018-12-01 88.451 kg [facility] of 19:27:00 [facility] BMI 2018-12-01 38.08 kg/m2 [facility] 19:27:00 [facility] Oxygen saturation 2018-12-01 88 /min [facility] in Arterial blood 19:27:00 [facility] by Pulse oximetry Branch Systolic blood 2018-11-17 145 mm[Hg] reported to RN [facility] pressure 17:00:00 [facility] Diastolic blood 2018-11-17 80 mm[Hg] reported to RN [facility] pressure 17:00:00 [facility] Heart rate 2018-11-17 54 /min [facility] 17:00:00 [facility] Body temperature 2018-11-17 36.72 Roro [facility] 17:00:00 [facility] Respiratory rate 2018-11-17 16 /min [facility] 17:00:00 [facility] Oxygen saturation 2018-11-17 95 /min [facility] Arterial blood 17:00:00 [facility] by Pulse oximetry [place] Body height 2018-11-15 152.4 cm [facility] 22:07:00 [facility] Body weight 2018-11-15 88.587 kg [facility] 21:18:00 [facility] [facility] BMI 2018-11-15 38.14 kg/m2 [facility] 21:18:00 [facility] Procedures Procedure Date / Time Performing Source Performed Clinician INSURANCE CORRESPONDENCE 2022-01-02 Doctor Unassigned, Univ ersity of 05:01:00 [place] [facility] CT ABDOMEN PELVIS W CONTRAST 2021-11-02 Mariana Ramirez Uni versity of 12:20:54 [facility] LIPASE 2021-11-02 Mariana Ramirez [place] of 10:40:00 [facility] COMP. METABOLIC PANEL (54892) 2021-11-02 Mariana Ramirez iversity of 10:40:00 [facility] CBC WITH DIFF 2021-11-02 Mariana Ramirez [place] of 10:40:00 [facility] PROTHROMBIN TIME / INR 2021-11-02 Mariana Ramirez Universit y of 10:40:00 [facility] ACTIVATED PARTIAL THRMPLAS KIMANI 2021-11-02 Mariana Ramirez U niversity of 10:40:00 [facility] CONSENT/REFUSAL FOR DIAGNOSIS AND 2021-11-02 Doctor Dung santiago, [facility] 09:27:03 [place] [facility] AUTHORIZATION FOR RELEASE OF PHI 2021-10-25 Doctor Adrienne ed, [place] of 05:01:00 Bri[place] [facility] FL TIME OR (NON-REPORTABLE) 2021-09-29 Zulema Rodriguez Univ ersity of 14:39:00 [facility] FL TIME OR (NON-REPORTABLE) 2021-09-29 Zulema Rodriguez [facility] ersity of 14:39:00 [facility] FOOT ARTHRODESIS 2021-09-29 Zulema Rodriguez University of 12:40:00 [facility] DAY SURGERY - ADC 2021-09-29 Doctor Unassigned, University of 05:01:00 [place] [facility] ASSIGNMENT OF BENEFITS 2021-09-27 Doctor Unassigned, Univer sity of 15:03:24 [place] [facility] EXTERNAL PROVIDER RECORDS 2021-09-20 Doctor Unassigned, Uni versity of 05:01:00 [place] [facility] EXTERNAL PROVIDER RECORDS 2021-09-20 Doctor Unassigned, Uni versity of 05:01:00 [place] [facility] EXTERNAL PROVIDER RECORDS 2021-09-19 Doctor Unassigned, Uni versity of 05:01:00 [place] [facility] EXTERNAL PROVIDER RECORDS 2021-09-19 Doctor Unassigned, Uni versity of 05:01:00 [place] [facility] MAGNESIUM 2021-09-08 [facility] of 09:16:00 [facility] COMP. METABOLIC PANEL ([id number]) 2021-09-08 [facility] iversity of 09:16:00 [facility] CBC WITH DIFF 2021-09-08 [facility] of 09:16:00 [facility] MAGNESIUM 2021-09-07 [facility] of 07:41:00 [facility] HEPATIC FUNCTION PANEL ([id number]) 2021-09-07 [facility] niversity of (ALB,T.PRO,BILI 07:41:00 [facility],BU/BC,ALT,AST,ALK PHOS) [place] BASIC METABOLIC PANEL (NA, K, CL, 2021-09-07 [facility] of CO2, GLUCOSE, BUN, CREATININE, CA) 07:41:00 [facility] CBC WITH DIFF 2021-09-07 [facility] of 07:41:00 [facility] MR ABDOMEN W WO CONTRAST MRCP 2021-09-06 [facility] iversity of 15:50:18 [facility] MAGNESIUM 2021-09-06 [facility] of 09:32:00 [facility] HEPATIC FUNCTION PANEL ([id number]) 2021-09-06 [facility] [employer] of (ALB,T.PRO,BILI 09:32:00 [facility] T,BU/BC,ALT,AST,ALK PHOS) [place] BASIC METABOLIC PANEL (NA, K, CL, 2021-09-06 [facility] of CO2, GLUCOSE, BUN, CREATININE, CA) 09:32:00 [facility] MAGNESIUM 2021-09-05 [facility] of 08:23:00 [facility] HEPATIC FUNCTION PANEL ([id number]) 2021-09-05 [facility] niversity of (ALB,T.PRO,BILI 08:23:00 [facility] T,BU/BC,ALT,AST,ALK PHOS) [place] BASIC METABOLIC PANEL (NA, K, CL, 2021-09-05 [facility] CO2, GLUCOSE, BUN, CREATININE, CA) 08:23:00 [facility] CBC WITH DIFF 2021-09-05 [facility] 08:23:00 [facility] MAGNESIUM 2021-09-04 [facility] 09:15:00 [facility] HEPATIC FUNCTION PANEL ([id number]) 2021-09-04 [facility] niversity of (ALB,T.PRO,BILI 09:15:00 [facility] T,BU/BC,ALT,AST,ALK PHOS) [place] BASIC METABOLIC PANEL (NA, K, CL, 2021-09-04 [facility] CO2, GLUCOSE, BUN, CREATININE, CA) 09:15:00 [facility] CBC WITH DIFF 2021-09-04 [facility] of 09:15:00 [facility] MAGNESIUM 2021-09-03 [facility] 09:25:00 [facility] COMP. METABOLIC PANEL ([id number]) 2021-09-03 [facility] iversity of 09:25:00 [facility] CBC WITH DIFF 2021-09-03 [facility] 09:25:00 [facility] CMV BY PCR 2021-09-03 [facility] 03:30:00 [facility] HSV 1&2, VZV NAAT 2021-09-03 [facility] 03:30:00 [facility] ACETAMINOPHEN 2021-09-02 [facility] 15:34:00 [facility] HEPATITIS B SURFACE ANTIBODY 2021-09-02 [facility] versity of 15:34:00 [facility] HCV ANTIBODY 2021-09-02 [facility] of 15:34:00 [facility] HBC ANTIBODY (IGM & IGG) 2021-09-02 [facility] ity of 15:34:00 [facility] CBC WITH DIFF 2021-09-02 [facility] of 15:33:00 [facility] EBV QUANTITATIVE PCR 2021-09-02 [facility] of 15:33:00 [facility] SMOOTH MUSCLE AB,IGG W/REFLEX 2021-09-02 [facility] iversity of 15:32:00 [facility] PHOSPHORUS 2021-09-02 [facility] of 15:32:00 [facility] MAGNESIUM 2021-09-02 [facility] of 15:32:00 [facility] FERRITIN SERUM 2021-09-02 [facility] of 15:32:00 [facility] CERULOPLASMIN 2021-09-02 [facility] of 15:32:00 [facility] ALPHA 1 ANTITRYPSIN 2021-09-02 [facility] o f 15:32:00 [facility] IMMUNOGLOBULIN G 2021-09-02 [facility] of 15:32:00 [facility] COMP. METABOLIC PANEL ([id number]) 2021-09-02 [facility] iversity of 15:32:00 [facility] ANTI-NUCLEAR ANTIBODY SCREEN 2021-09-02 [facility] versity of 15:32:00 [facility] HEPATITIS B SURFACE ANTIGEN 2021-09-02 [facility] ersity of 15:32:00 [facility] HAV ANTIBODY (IGG AND IGM) 2021-09-02 [facility] rs[facility] of 15:32:00 [facility] ANTI-NUCLEAR ANTIBODY TITER 2021-09-02 [facility] ersity of 15:32:00 [facility] ANTI-NUCLEAR ANTIBODY-PATHOLOGIST 2021-09-02 [facility] of INTERPRETATION 15:32:00 [facility] PROTHROMBIN TIME / IN[facility] 2021[facility]02 [facility]00 [facility] HB ECG ROUTINE & RHYTHM STRIP 2021-09-02 Sheryl Crenshaw Un iversity of 13:42:19 [facility] US ABDOMEN LIMITED 2021-09-02 [facility] of 05:27:56 [facility] HB ECG ROUTINE & RHYTHM STRIP 2021-09-01 Jaki Polanco Un iversity of 18:43:41 [facility] XR CHEST 1 VW 2021-09-01 Jaki Polanco [place] of 18:38:41 [facility] LIPASE 2021-09-01 Jaki Polanco [place] [facility] 18:37:00 [facility] MAGNESIUM 2021-09-01 Jaki Polanco [place] [facility] 18:37:00 [facility] TROPONIN I 2021-09-01 Jaki Polanco [place] of 18:37:00 [facility] COMP. METABOLIC PANEL ([id number]) 2021-09-01 Jaki Polanco Un iversity of 18:37:00 [facility] CBC WITH DIFF 2021-09-01 Jaki Polanco [place] [facility] 18:37:00 [facility] URINALYSIS 2021-09-01 Jaki Polanco [place] of 18:37:00 [facility] HOSPITAL ADMISSION 2021-09-01 Doctor Unasschad, [facility] 05:01:00 [place] [facility] CT ABDOMEN PELVIS W CONTRAST 2021-08-27 Maru Baez [facility] 17:00:42 [facility] URINALYSIS 2021-08-27 Maru Baez [facility] 16:26:00 [facility] LIPASE 2021-08-27 Maru Baez [facility] 15:59:00 [facility] TROPONIN I 2021-08-27 Maru Baez [facility] 15:59:00 [facility] COMP. METABOLIC PANEL ([id number]) 2021-08-27 Maru Baez [facility] 15:59:00 [facility] CBC WITH DIFF 2021-08-27 Maru Baez [facility] 15:59:00 [facility] CONSENT/REFUSAL FOR DIAGNOSIS AND 2021-08-27 Doctor Padmasspramod santiago, [facility] 15:44:40 [place] [facility] POCT GLUCOSE (AUTOMATED) 2021-07-28 Liliya Hinojosa [facility] ity of 22:28:00 [facility] RENAL ARTERY DUPLEX - BY VASCULAR 2021-07-28 [place], [facility] of LAB 20:54:00 [facility] POCT GLUCOSE (AUTOMATED) 2021-07-28 Liliya Hinojosa Univers ity of 16:45:00 [facility] POCT GLUCOSE (AUTOMATED) 2021-07-28 Liliya Hinojosa ity of 12:52:00 [facility] LIPASE 2021-07-28 Liliya Hinojosa University of 09:31:00 [facility] COMP. METABOLIC PANEL ([id number]) 2021-07-28 Liliya Hinojosa Un iversity of 09:31:00 [facility] CBC WITH DIFF 2021-07-28 Liliya Hinojosa University of 09:31:00 [facility] POCT GLUCOSE (AUTOMATED) 2021-07-28 Liliya Hinojosa ity of 09:08:00 [facility] POCT GLUCOSE (AUTOMATED) 2021-07-28 Liliya Hinojosa ity of 04:38:00 [facility] POCT GLUCOSE (AUTOMATED) 2021-07-28 Liliya Hinojosa ity of 01:02:00 [facility] POCT GLUCOSE (AUTOMATED) 2021-07-27 Liliya Hinojosa ity of 21:47:00 [facility] POCT GLUCOSE (AUTOMATED) 2021-07-27 Liliya Hinojosa ity of 16:48:00 [facility] POCT GLUCOSE (AUTOMATED) 2021-07-27 Liliya Hinojosa ity of 12:43:00 [facility] MAGNESIUM 2021-07-27 [facility] of 08:55:00 [facility] BASIC METABOLIC PANEL (NA, K, CL, 2021-07-27 [facility] of CO2, GLUCOSE, BUN, CREATININE, CA) 08:55:00 [facility] CBC WITH DIFF 2021-07-27 [facility] of 08:55:00 [facility] POCT GLUCOSE (AUTOMATED) 2021-07-27 Liliya Hinojosa ity of 08:47:00 [facility] POCT GLUCOSE (AUTOMATED) 2021-07-27 Liliya Hinojosa Univers ity of 06:48:00 [facility] POCT GLUCOSE (AUTOMATED) 2021-07-27 Liliya Hinojosa ity of 01:50:00 [facility] POCT GLUCOSE (AUTOMATED) 2021-07-26 Liliya Hinojosa [facility] ity of 21:50:00 [facility] POCT GLUCOSE (AUTOMATED) 2021-07-26 Liliya Hinojosa [facility] ity of 16:50:00 [facility] LIPASE 2021-07-26 Get Mederos [place] of 09:59:00 [facility] MAGNESIUM 2021-07-26 Gatito [facility] of 09:59:00 [facility] BASIC METABOLIC PANEL (NA, K, CL, 2021-07-26 Gatito [facility] of CO2, GLUCOSE, BUN, CREATININE, CA) 09:59:00 [facility] CBC WITH DIFF 2021-07-26 [facility] [place] of 09:59:00 [facility] EKG-12 LEAD 2021-07-25 Liliya Hinojosa [place] [facility] 23:35:46 [facility] POCT GLUCOSE (AUTOMATED) 2021-07-25 Liliya Hinojosa [facility] ity of 14:19:00 [facility] HEPATIC FUNCTION PANEL ([id number]) 2021-07-25 Get [facility] niversity of (ALB,T.PRO,BILI 12:28:00 [facility] T,BU/BC,ALT,AST,ALK PHOS) [place] BASIC METABOLIC PANEL (NA, K, CL, 2021-07-25 [facility] CO2, GLUCOSE, BUN, CREATININE, CA) 12:28:00 [facility] CBC WITH DIFF 2021-07-25 Get [facility] [place] [facility] 10:59:00 [facility] MAGNESIUM 2021-07-24 Liliya Hinojosa [place] of 10:49:00 [facility] HEPATIC FUNCTION PANEL ([id number]) 2021-07-24 Liliya Hinojosa U niversity of (ALB,T.PRO,BILI 10:49:00 [facility] T,BU/BC,ALT,AST,ALK PHOS) [place] BASIC METABOLIC PANEL (NA, K, CL, 2021-07-24 Brigido Hinojosa [place] CO2, GLUCOSE, BUN, CREATININE, CA) 10:49:00 [facility] CBC WITH DIFF 2021-07-24 Liliya Hinojosa [place] [facility] 09:16:00 [facility] PHOSPHORUS 2021-07-24 Micaela Liliya [place] of 00:43:00 [facility] CT ABDOMEN PELVIS W CONTRAST 2021-07-23 Meka Hammonds Un iversity of 22:53:27 [facility] LIPASE 2021-07-23 Meka Hammonds [place] [facility] 21:19:00 [facility] MAGNESIUM 2021-07-23 Meka Hammonds [place] of 21:19:00 [facility] TROPONIN I 2021-07-23 Meka Hammonds [facility] 21:19:00 [facility] COMP. METABOLIC PANEL ([id number]) 2021-07-23 Meka Hammonds U niversity of 21:19:00 [facility] D-DIMER 2021-07-23 Meka Hammonds [facility] 21:19:00 [facility] CBC WITH DIFF 2021-07-23 Meka Hammonds [facility] 21:18:00 [facility] URINALYSIS 2021-07-23 Meka Hammonds [facility] 21:18:00 [facility] XR CHEST 1 VW 2021-07-23 Meka Hammonds [facility] 21:03:00 [facility] HB ECG ROUTINE & RHYTHM STRIP 2021-07-23 Meka Hammonds U niversity of 20:31:58 [facility] CONSENT/REFUSAL FOR DIAGNOSIS AND 2021-07-23 Doctor Dung santiago [place] [facility] 20:20:48 Briar [facility] ESOPHAGOGASTRODUODENOSCOPY 2021-07-04 Gulshan Piper rsity of 17:04:00 [facility] EGD (ENDO) 2021-07-04 Jeannie Slade [facility] 16:11:40 [facility] EGD (ENDO) 2021-07-04 Jeannie Slade [facility] 16:11:40 [facility] DAY SURGERY - ADC 2021-07-04 Doctor Iker, University of 05:01:00 [place] [facility] EXTERNAL PROVIDER RECORDS 2021-06-23 Doctor Unassigned, Uni versity of 06:01:00 [place] [facility] EXTERNAL PROVIDER RECORDS 2021-06-23 Doctor Unassigned, Uni versity of 06:01:00 [place] [facility] CT ABDOMEN PELVIS W CONTRAST 2021-06-04 Mariana Ramirez versity of 01:33:00 [facility] US GALL BLADDER 2021-06-03 Mariana Ramirez of 23:57:52 [facility] LIPASE 2021-06-03 Mariana Ramirez of 20:30:00 [facility] TROPONIN I 2021-06-03 Mariana Ramirez of 20:30:00 [facility] COMP. METABOLIC PANEL ([id number]) 2021-06-03 Mariana Ramirez iversity of 20:30:00 [facility] CBC WITH DIFF 2021-06-03 Mariana Ramirez of 20:30:00 [facility] PROTHROMBIN TIME / INR 2021-06-03 Mariana Ramirezit y of 20:30:00 [facility] ACTIVATED PARTIAL THRMPLAS KIMANI 2021-06-03 Mariana Ramirez U niversity of 20:30:00 [facility] N-TERMINAL PRO-BNP 2021-06-03 Mariana Ramirez of 20:30:00 [facility] COVID-19 (ID NOW RAPID TESTING) 2021-06-03 Mariana Ramirez of 20:30:00 [facility] LACTIC ACID WHOLE BLOOD 2021-06-03 Mariana Ramirezi ty of 20:26:00 [facility] XR CHEST 1 VW 2021-06-03 Mariana Ramirez of 20:15:36 [facility] CONSENT/REFUSAL FOR DIAGNOSIS AND 2021-06-03 Doctor Dung santiago, [facility] 19:39:18 Briar [facility] EKG-12 LEAD 2021-05-22 Consuelo Avendaño of 06:47:40 [facility] CT CHEST PULMONARY ANGIOGRAM 2021-05-22 Consuelo Avendaño versity of 06:08:50 [facility] TROPONIN I 2021-05-22 Consuelo Avendaño of 05:41:00 [facility] COMP. METABOLIC PANEL ([id number]) 2021-05-22 Consuelo Avendaño iversity of 05:41:00 [facility] CBC WITH DIFF 2021-05-22 Consuelo Avendaño of 05:41:00 [facility] N-TERMINAL PRO-BNP 2021-05-22 Consuelo Avendaño of 05:41:00 [facility] NOTICE OF PRIVACY PRACTICES 2021-05-22 Doctor Unasschad, U niversity of 05:17:11 [place] [facility] CONSENT/REFUSAL FOR DIAGNOSIS AND 2021-05-22 Doctor Dung santiago, [facility] 05:13:31 Briar [facility] POCT MOLECULAR FLU 2021-05-18 [facility] of 15:26:00 [facility] POCT MOLECULAR STREP 2021-05-18 [facility] of 15:22:00 [facility] COVID-19 (ID NOW RAPID TESTING) 2021-04-15 [facility] of 20:37:00 [facility] CT ABDOMEN PELVIS W CONTRAST 2021-04-15 Consuelo Avendaño Uni versity of 20:23:27 [facility] LIPASE 2021-04-15 Jar[facility]o [facility] of 20:23:00 [facility] TROPONIN I 2021-04-15 Jarocho [facility] of 20:23:00 [facility] COMP. METABOLIC PANEL ([id number]) 2021-04-15 Consuelo Avendaño Un iversity of 20:23:00 [facility] CBC WITH DIFF 2021-04-15 Consuelo Avendaño [place] [facility] 20:23:00 [facility]ALYSIS 2021-04-15 [facility] 20:23[facility]00 [facility] CONSENT/REFUSAL FOR DIAGNOSIS AND 2021-04-15 Doctor Dung santiago, [facility] 19:33:08 Briar [facility] CT ABDOMEN PELVIS W CONTRAST 2021-03-26 Consuelo Avendaño Uni versity of 02:08:33 [facility] LIPASE 2021-03-26 Consuelo Avendaño [place] [facility] 00:57:00 [facility] TROPONIN I 2021-03-26 [facility] of 00:57:00 [facility] COMP. METABOLIC PANEL ([id number]) 2021-03-26 Consuelo Avendaño Un iversity of 00:57:00 [facility] CBC WITH DIFF 2021-03-26 Consuelo Avendaño [place] [facility] 00:57:00 [facility]YSIS 2021-03-26 [facility] 00:57[facility]00 [facility] N-TERMINAL PRO-BNP 2021-03-26 [facility] 00:57:00 [facility] XR CHEST 1 VW 2021-03-26 [facility] of 00:17:07 [facility] CONSENT/REFUSAL FOR DIAGNOSIS AND 2021-03-25 Doctor Dung santiago [facility] 23:45:22 [place] [facility] SARS-COV-2 COVID-19 VACCINE 2021-03-25 Doctor Unassigned, U niversity of BOOSTER,0.25ML,IM (MODERNA) 17:05:[address] [facility] COMP. METABOLIC PANEL ([id number]) 2021-03-20 Meka Hammonds U niversity of 23:40:00 [facility] CT ABDOMEN PELVIS W CONTRAST 2021-03-20 Meka Hammonds Un iversity of 23:00:43 [facility] LIPASE 2021-03-20 Meka Hammonds [facility] 22:41:00 [facility] TROPONIN I 2021-03-20 Meka Hammonds [facility] 22:41:00 [facility] CBC WITH DIFF 2021-03-20 Meka Hammonds [facility] 22:41:00 [facility] NOTICE OF PRIVACY PRACTICES 2021-03-20 Doctor Unassigned, U niversity of 21:43:47 [place]ar [facility] CONSENT/REFUSAL FOR DIAGNOSIS AND 2021-03-20 Doctor Dung santiago [facility] 21:43:12 Briar [facility] CT ABDOMEN PELVIS W CONTRAST 2021-02-12 Rosalinda Fisher U niversity of 22:22:23 [facility] LIPASE 2021-02-[address] [facility] of 19:54:00 [facility] COMP. METABOLIC PANEL ([id number]) 2021-02-12 Rosalinda Fisher [place] [facility] 19:54:00 [facility] CBC WITH DIFF 2021-02-12 Rosalinda Fisher [place] [facility] 19:54:00 [facility] URINALYSIS 2021-02-12 Rosalinda Fisher [place] [facility] 19:54:00 [facility] CONSENT/REFUSAL FOR DIAGNOSIS AND 2021-02-12 [facility] [place] 19:03:31 [place] [facility] COMP. METABOLIC PANEL ([id number]) 2021-01-18 Maru Baez [facility] 04:11:00 [facility] CT ABDOMEN PELVIS W CONTRAST 2021-01-18 Maru Baez [facility] 03:35:25 [facility] LIPASE 2021-01-18 Maru Baez [facility] 02:54:00 [facility] CBC WITH DIFF 2021-01-18 Maru Baez [facility] 02:54:00 [facility] URINALYSIS 2021-01-18 Maru Baez [facility] 02:54:00 [facility] CONSENT/REFUSAL FOR DIAGNOSIS AND 2021-01-18 [facility] [place] 02:23:56 Briar [facility] XR CHEST 2 VW 2021-01-07 Consuelo Avendaño [facility] 16:49:00 [facility] COVID-19 (ID NOW RAPID TESTING) 2020-12-30 Maru Baez [facility] 22:02:00 [facility] CT ABDOMEN PELVIS W CONTRAST 2020-12-30 Maru Baez [facility] 18:49:58 [facility] LIPASE 2020-12-30 Maru Baez [facility] 18:29:00 [facility] HEPATIC FUNCTION PANEL ([id number]) 2020-12-30 Maru Baez [facility] (ALB,T.PRO,BILI 18:29:00 [facility],BU/BC,ALT,AST,ALK PHOS) [place] BASIC METABOLIC PANEL (NA, K, CL, 2020-12-30 Jerilyn Baez ra [facility] CO2, GLUCOSE, BUN, CREATININE, CA) 18:29:00 [facility] CBC WITH DIFF 2020-12-30 Maru Baez [facility] 18:29:00 [facility] URINALYSIS 2020-12-30 Maru Baez [facility] 18:29:00 [facility] CONSENT/REFUSAL FOR DIAGNOSIS AND 2020-12-30 [facility] [place] 18:01:18 Briar [facility] US PELVIS COMPLETE WITH 2020-12-23 Vira Washburn ty of TRANSVAGINAL 21:36:03 [facility] US GALL BLADDER 2020-12-05 Alirio Poole [facility] 22:39:34 F [facility] LACTIC ACID WHOLE BLOOD 2020-12-05 Alirio Poole [facility] sity of 22:16:00 F [facility] CT ABDOMEN PELVIS W CONTRAST 2020-12-05 Alirio Poole U niversity of 21:23:47 F [facility] ASSIGNMENT OF BENEFITS 2020-12-05 Doctor Unassigned, [facility] sity of 20:53:22 Briar [facility] LIPASE 2020-12-05 Maru Baez [facility] 20:12:00 [facility] COMP. METABOLIC PANEL ([id number]) 2020-12-05 Maru Baez [facility] 20:12:00 [facility] CBC WITH DIFF 2020-12-05 Maru Baez [facility] 20:12:00 [facility] URINALYSIS 2020-12-05 Maru Baez [facility] 20:12:00 [facility] CONSENT/REFUSAL FOR DIAGNOSIS AND 2020-12-05 Doctor Unassig [facility] [place] 18:56:42 Briar [facility] MAGNESIUM 2020-10-12 [facility] 08:21:00 [facility] HEPATIC FUNCTION PANEL ([id number]) 2020-10-12 [facility] niversity of (ALB,T.PRO,BILI 08:21:00 [facility],BU/BC,ALT,AST,ALK PHOS) [place] LIPID PANEL ([id number])(TOTAL 2020-10-12 [facility] of CHOLESTEROL, TRIGLYCERIDES, HDL) 08:21:00 [facility] CBC WITH DIFF 2020-10-12 [facility] 08:21:00 [facility] PROTHROMBIN TIME / INR 2020-10-12 [facility], Universit y of 08:21:00 [facility] ACTIVATED PARTIAL THRMPLAS KIMANI 2020-10-12 [facility], U niversity of 08:21:00 [facility] HEPATIC FUNCTION PANEL ([id number]) 2020-10-12 [facility], niversity of (ALB,T.PRO,BILI 03:31:00 [facility] T,BU/BC,ALT,AST,ALK PHOS) [place] BASIC METABOLIC PANEL (NA, K, CL, 2020-10-12 [place], [facility] CO2, GLUCOSE, BUN, CREATININE, CA) 03:31:00 Christopher [facility] COVID-19 (ID NOW RAPID TESTING) 2020-10-11 Mariana Ramirez of 16:15:00 [facility] US GALL BLADDER 2020-10-11 Mariana Ramirez of 15:26:59 [facility] HB ECG ROUTINE & RHYTHM STRIP 2020-10-11 Mariana Ramirez iversity of 13:53:00 [facility] LIPASE 2020-10-11 Mariana Ramirez of 13:49:00 [facility] TROPONIN I 2020-10-11 Mariana Ramirez [place] of 13:49:00 [facility] HEPATIC FUNCTION PANEL ([id number]) 2020-10-11 Mariana Ramirez niversity of (ALB,T.PRO,BILI 13:49:00 [facility],BU/BC,ALT,AST,[facility] BASIC METABOLIC PANEL (NA, K, CL, 2020-10-11 Florina Ramirez [facility] CO2, GLUCOSE, BUN, CREATININE, CA) 13:49:00 [facility] CBC WITH DIFF 2020-10-11 Mariana Ramirez [place] of 13:49:00 [facility] URINALYSIS 2020-10-11 Mariana Ramirez [place] of 13:49:00 [facility] CONSENT/REFUSAL FOR DIAGNOSIS AND 2020-10-11 Doctor Dung santiago [facility] 13:29:15 Briar [facility] COVID-19 (ID NOW RAPID TESTING) 2020-10-04 Maisha Reyes [place] of 23:19:00 [facility] URINALYSIS 2020-10-04 Maisha Reyes [place] of 23:18:00 [facility] LIPASE 2020-10-04 Maisha Reyes [place] of 23:17:00 [facility] COMP. METABOLIC PANEL ([id number]) 2020-10-04 Maisha Reyes Un iversity of 23:17:00 [facility] CBC WITH DIFF 2020-10-04 Maisha Reyes [facility] 23:17:00 [facility] CONSENT/REFUSAL FOR DIAGNOSIS AND 2020-08-05 Doctor Dung santiago [facility] 13:05:44 Briar [facility] FL TIME OR (NON-REPORTABLE) 2020-07-18 Moise aGmez U niversity of 12:50:00 [facility] FL TIME OR (NON-REPORTABLE) 2020-07-18 Moise Gamez U niversity of 12:50:00 [facility] BLOCK EPIDURAL 2020-07-18 Moise Gamez University of 12:25:00 [facility] POCT GLUCOSE (AUTOMATED) 2020-07-18 VeraMoise hawley [facility] ersity of 12:01:00 [facility] POCT GLUCOSE (AUTOMATED) 2020-07-18 [facility], [facility] 12:01:00 [facility] DAY SURGERY - ADC 2020-07-18 Doctor Unasschad, [facility] 05:01:00 Briar [facility] CT ABDOMEN PELVIS W CONTRAST 2020-07-08 Jaki Polanco Uni versity of 00:59:19 [facility] LIPASE 2020-07-08 Jaki Polanco [place] of 00:23:00 [facility] MAGNESIUM 2020-07-08 Jaki Polanco Sydnie [facility] 00:23:00 [facility] TROPONIN I 2020-07-08 Jaki Polanco Sydnie [place] of 00:23:00 [facility] COMP. METABOLIC PANEL ([id number]) 2020-07-08 Jaki Polanco iversity of 00:23:00 [facility] CBC WITH DIFF 2020-07-08 Jaki Polanco [place] [facility] 00:23:00 [facility] URINALYSIS 2020-07-08 Jaki Polanco [place] [facility] 00:23:00 [facility] COVID-19 (ID NOW RAPID TESTING) 2020-07-08 Jaki Polanco Sydnie [place] of 00:23:00 [facility] XR CHEST 1 VW 2020-07-08 Jaki Polanco Sydnie [place] of 00:01:58 [facility] CONSENT/REFUSAL FOR DIAGNOSIS AND 2020-07-07 Doctor Padmasspramod santiago, [facility] 23:40:12 Briar [facility] FL TIME OR (NON-REPORTABLE) 2020-07-04 Moise Gamez niversity of 13:10:00 [facility] DAY SURGERY [facility] 2020-07-04 Doctor Unassigned, [facility] 05:01:00 Briar [facility] ASSIGNMENT OF BENEFITS 2020-07-01 Doctor Unassigned, Univer sity of 14:01:02 Briar [facility] FL TIME OR (NON-REPORTABLE) 2020-06-20 Moise Gamez U niversity of 14:12:00 [facility] 2020-06-20 Doctor Unassigned, [facility] 06:01:00 Briar [facility] ASSIGNMENT OF BENEFITS 2020-06-17 Doctor Unassigned, Univer sity of 21:21:05 Briar [facility] CONSENT/REFUSAL FOR DIAGNOSIS AND 2020-06-15 [facility] [place] 20:59:25 Briar [facility] CONSENT/REFUSAL FOR DIAGNOSIS AND 2020-06-15 Doctor Dung santiago, [facility] 20:59:25 Briar [facility] ASSIGNMENT OF BENEFITS 2020-06-15 Doctor Unassigned, Univer sity of 20:59:08 Briar [facility] ASSIGNMENT OF BENEFITS 2020-06-15 Doctor Unassigned, Univer sity of 20:59:08 Briar [facility] CONSENT/REFUSAL FOR DIAGNOSIS AND 2020-06-15 [facility] [place] 20:58:52 Briar [facility] CONSENT/REFUSAL FOR DIAGNOSIS AND 2020-06-15 Doctor uDng santiago [facility] 20:58:52 Briar [facility] ASSIGNMENT OF BENEFITS 2020-06-15 Doctor Unassigned, Univer sity of 20:58:37 Briar [facility] ASSIGNMENT OF BENEFITS 2020-06-15 Doctor Unassigned, Univer sity of 20:58:37 Briar [facility] NOTICE OF PRIVACY PRACTICES 2020-06-15 Doctor Unassigned, U niversity of 20:58:21 Briar [facility] NOTICE OF PRIVACY PRACTICES 2020-06-15 Doctor Unassigned, U niversity of 20:58:21 Briar [facility] CONSENT/REFUSAL FOR DIAGNOSIS AND 2020-06-15 [facility] [place] 20:58:08 Briar [facility] CONSENT/REFUSAL FOR DIAGNOSIS AND 2020-06-15 [facility] 20:58:08 Briar [facility] ASSIGNMENT OF BENEFITS 2020-06-15 Doctor Iker, [facility] sity of 20:57:50 Briar [facility] ASSIGNMENT OF BENEFITS 2020-06-15 Doctor Iker, [facility] sity of 20:57:50 Briar [facility] DSU PRE-OP 2020-06-15 [facility], [facility] 06:01:00 Briar [facility] DSU PRE-OP 2020-06-15 Doctor Padmasschad, [facility] 06:01:00 Briar [facility] HEPATIC FUNCTION PANEL ([id number]) 2020-05-06 [facility] (ALB,T.PRO,BILI 22:56:00 [facility],BU/BC,ALT,AST,ALK PHOS) [place] BASIC METABOLIC PANEL (NA, K, CL, 2020-05-06 [facility] CO2, GLUCOSE, BUN, CREATININE, CA) 22:56:00 [facility] XR CHEST 1 VW 2020-05-06 [facility] 21:44:02 [facility] LIPASE 2020-05-06 [facility] 21:40:00 [facility] TROPONIN I 2020-05-06 [facility] 21:40:00 [facility] CBC WITH DIFF 2020-05-06 [facility] 21:40:00 [facility] URINALYSIS 2020-05-06 [facility] 21:32:00 [facility] COVID-19 (ID NOW RAPID TESTING) 2020-05-06 [facility] 21:32:00 [facility] NOTICE OF PRIVACY PRACTICES 2020-05-06 Doctor Dong, U niversity of 21:14:50 Briar [facility] CONSENT/REFUSAL FOR DIAGNOSIS AND 2020-05-06 [facility] 21:14:25 Briar [facility] CT ABDOMEN PELVIS W CONTRAST 2020-03-26 Erasmo Grayson iversity of 06:12:05 [facility] URINALYSIS 2020-03-26 Erasmo Grayson [facility] 05:02:00 [facility] LIPASE 2020-03-26 Erasmo Grayson [facility] of 03:38:00 [facility] COMP. METABOLIC PANEL ([id number]) 2020-03-26 Erasmo Grayson U niversity of 03:38:00 [facility] CBC WITH DIFF 2020-03-26 LeahsdErasmo [place] of 03:38:00 [facility] COVID-19 (ID NOW RAPID TESTING) 2020-03-26 [facility] of 03:38:00 [facility] CONSENT/REFUSAL FOR DIAGNOSIS AND 2020-03-26 [facility] 02:58:31 Briar [facility] REFERRAL- REQUEST/RESPONSE 2020-03-18 Doctor Unassigned, Un iversity of 06:01:00 Briar [facility] MR BRAIN WO CONTRAST 2020-02-08 Monet Dominguez [facility] y of 13:47:00 Ali [facility] BASIC METABOLIC PANEL (NA, K, CL, 2020-02-07 [facility] of CO2, GLUCOSE, BUN, CREATININE, CA) 08:51:00 [facility] CBC WITH DIFF 2020-02-07 [facility] of 08:51:00 [facility] COMP. METABOLIC PANEL ([id number]) 2020-02-05 Alex Mcknight Un iversity of 09:37:00 [facility] CBC WITH DIFF 2020-02-05 Alex Mcknight [place] of 09:37:00 [facility] MR CERVICAL SPINE WO CONTRAST 2020-02-05 Get Aguillon Un iversity of 00:24:54 [facility] MAGNESIUM 2020-02-04 Alex Mcknight [place] of 10:01:00 [facility] COMP. METABOLIC PANEL ([id number]) 2020-02-04 Alex Mcknight Un iversity of 10:01:00 [facility] CBC WITH DIFF 2020-02-04 Get [place] of 10:01:00 [facility] N-TERMINAL PRO-BNP 2020-02-04 Alex Mcknight of 10:01:00 [facility] BLOOD CULTURE SCREEN 2020-02-03 Alex Mcknight of 22:19:00 [facility] RENAL ARTERY DUPLEX BY VASCULAR 2020-02-03 Juan Luis, [facility] of LAB 17:42:39 [facility] AMMONIA, PLASMA 2020-02-03 Juan Luis [facility] of 17:06:00 [facility] SMOOTH MUSCLE AB,IGG W/REFLEX 2020-02-03 Ross, Un iversity of 16:43:00 [facility]CC[facility] (GUAIAC) BLOOD 2020-02-03 Juan Luis [facility] of 16:42:00 [facility] PHOSPHORUS 2020-02-03 Juan Luis, [facility] of 08:45:00 [facility] CREATINE KINASE 2020-02-03 Juan Luis, [facility] of 08:45:00 [facility] URIC ACID 2020-02-03 Juan Luis, [facility] of 08:45:00 [facility] MAGNESIUM 2020-02-03 Juan Luis, [facility] of 08:45:00 [facility] COMP. METABOLIC PANEL ([id number]) 2020-02-03 Juan Luis lesly iversity of 08:45:00 [facility] CBC WITH DIFF 2020-02-03 Juan Luis [facility] of 08:45:00 [facility] N-TERMINAL PRO-BNP 2020-02-03 Juan Luis, [facility] of 08:45:00 [facility] BLOOD CULTURE SCREEN 2020-02-02 Juan Luis [facility] of 20:19:00 [facility] BLOOD CULTURE SCREEN 2020-02-02 Juan Luis [facility] of 19:58:00 [facility] CERULOPLASMIN 2020-02-02 [facility] [place] [facility] 19:58:00 [facility] VAL[facility], FREE 2020-02-02 Juan Luis [facility] o f 19:58:00 [facility] PROTHROMBIN TIME / INR 2020-02-02 Juan Luis [facility] Universit y of 19:58:00 [facility] ANTI-NUCLEAR ANTIBODY SCREEN 2020-02-02 Ross, Uni versity of 19:58:00 [facility] HEPATITIS B SURFACE ANTIBODY 2020-02-02 Juan Luis [facility] Uni versity of 19:58:00 [facility] HEPATITIS B SURFACE ANTIGEN 2020-02-02 Juan Luis [facility] Univ ersity of 19:58:00 [facility] HCV ANTIBODY 2020-02-02 Juan Luis [facility] of 19:58:00 [facility] HAV ANTIBODY (IGG AND IGM) 2020-02-02 [facility] of 19:58:00 [facility] PROCALCITONIN 2020-02-02 Juan Luis [facility] of 19:58:00 [facility] BLOOD CULTURE WORKUP 2020-02-02 [facility] of 19:58:00 [facility] CREATINE KINASE 2020-02-02 [facility] of 11:31:00 [facility] LIPASE 2020-02-02 [facility] of 11:31:00 [facility] COMP. METABOLIC PANEL ([id number]) 2020-02-02 [facility] iversity of 11:31:00 [facility] LIPID PANEL ([id number])(TOTAL 2020-02-02 [facility] sity of CHOLESTEROL, TRIGLYCERIDES, HDL) 11:31:00 [facility] LITHIUM 2020-02-02 [facility] of 11:31:00 [facility] POCT GLUCOSE (AUTOMATED) 2020-02-02 Liliya Hinojosa [facility] ity of 11:24:00 [facility] LIPASE 2020-02-02 Micaela [facility] of 08:21:00 [facility] COMP. METABOLIC PANEL ([id number]) 2020-02-02 [facility] iversity of 08:21:00 [facility] LITHIUM 2020-02-02 [facility] 08:21:00 [facility] CBC WITH DIFF 2020-02-02 Liliya Hinojosa [place] of 08:21:00 [facility] GLYCOSYLATED HEMOGLOBIN (A1C) 2020-02-02 [facility] i[facility] of 08:21:00 [facility] ACUTE CARE VENOUS BLOOD GAS 2020-02-01 Liliya Hinojosa [facility] ersity of 19:23:00 [facility] US ABDOMEN COMPLETE 2020-02-01 [facility] o f 16:39:39 [facility] POCT GLUCOSE (AUTOMATED) 2020-02-01 Liliya Hinojosa [facility] ity of 12:46:00 [facility] LIPASE 2020-02-01 [facility] of 10:09:00 [facility] COMP. METABOLIC PANEL ([id number]) 2020-02-01 Yari Sivashey iversity of 10:09:00 [facility] LITHIUM 2020-02-01 cristopher [facility] of 10:09:00 [facility] CBC WITH DIFF 2020-02-01 Lisandro [facility] of 10:09:00 [facility] OSMOLALITY SERUM 2020-02-01 Lisandro [facility] of 00:10:00 [facility] VITAMIN B12, LEVEL 2020-02-01 [facility] of 00:10:00 [facility] FOLATE 2020-02-01 [facility] 00:10[facility]00 [facility] ABG+COOX+NA+K+GLU+CA2+ 2020-01-31 [facility] ty of 20:39:00 [facility] BLOOD CULTURE SCREEN 2020-01-31 [facility] 18:21:00 [facility] IRON PANEL 2020-01-31 [facility] 18:21:00 [facility] SALICYLATE 2020-01-31 [facility] 18:21:00 [facility] LITHIUM 2020-01-31 [facility] of 18:21:00 [facility] VALPROIC ACID, TOTAL 2020-01-31 [facility] of 18:21:00 [facility] BLOOD CULTURE WORKUP 2020-01-31 [facility] of 18:21:00 [facility] ADC OR PERICO ONLY - RPR 2020-01-31 Lisandro [facility] sity of 18:21:00 [facility] GRAM POSITIVE BLOOD PATHOGENS DNA 2020-01-31 May Ron vt [facility] of PROBE-AEROBIC 18:21:00 [facility] XR ABDOMEN 1 VW 2020-01-31 Asaf Kirstin [place] of 17:09:26 [facility] XR CHEST 1 VW 2020-01-31 Asaf Kirstin [place] of 17:09:26 [facility] CT HEAD WO CONTRAST 2020-01-31 Kirstin Ron [place] of 16:58:10 [facility] URINALYSIS 2020-01-31 Asaf [facility] of 16:13:00 [facility] URINE CULTURE 2020-01-31 [facility] 16:13:00 [facility] ADC / LCC - DRUG SCREEN TRIAGE 2020-01-31 [facility] of 16:13:00 [facility] COVID-19 (ID NOW RAPID TESTING) 2020-01-31 [facility] of 16:00:00 [facility] LAB ONLY COVID INTERPRETATION 2020-01-31 [facility] n[facility] of 16:00:00 [facility] BLOOD CULTURE SCREEN 2020-01-31 [facility] of 15:58:00 [facility] CREATINE KINASE 2020-01-31 [facility] of 15:58:00 [facility] LIPASE 2020-01-31 [facility] of 15:58:00 [facility] FERRITIN SERUM 2020-01-31 [facility] of 15:58:00 [facility] AMMONIA, PLASMA 2020-01-31 [facility] of 15:58:00 [facility] TROPONIN I 2020-01-31 [facility] of 15:58:00 [facility] THYROID STIMULATING HORMONE 2020-01-31 [facility] ersity of 15:58:00 [facility] HEPATIC FUNCTION PANEL ([id number]) 2020-01-31 [facility] of (ALB,T.PRO,BILI 15:58:00 [facility],BU/BC,ALT,AST,ALK PHOS) Branch BASIC METABOLIC PANEL (NA, K, CL, 2020-01-31 [facility] of CO2, GLUCOSE, BUN, CREATININE, CA) 15:58:00 [facility] ETHANOL 2020-01-31 [facility] of 15:58:00 [facility] DIFF CONSULT INTERPRETATION 2020-01-31 [facility] ersity of 15:58:00 [facility] CBC WITH DIFF 2020-01-31 [facility] of 15:58:00 [facility] RETICULOCYTES AUTOMATED 2020-01-31 [facility] ty of 15:58:00 [facility] N-TERMINAL PRO-BNP 2020-01-31 [facility] o f 15:58:00 [facility] LACTIC ACID WHOLE BLOOD 2020-01-31 [facility] ity of 15:57:00 [facility] EKG-12 LEAD 2020-01-31 Mariana Ramirez [place] of 15:48:34 [facility] EKG-12 LEAD 2020-01-31 Kirstin Ron [place] of 15:40:40 [facility] NOTICE OF PRIVACY PRACTICES 2020-01-31 Doctor Unassigned, U niversity of 15:38:09 Briar [facility] CONSENT/REFUSAL FOR DIAGNOSIS AND 2020-01-31 Doctor Dung santiago, [facility] 15:37:54 Briar [facility] EXTERNAL PROVIDER RECORDS 2020-01-31 Doctor Unassigned, Uni versity of 05:01:00 Briar [facility] EMERGENCY DEPARTMENT DOCUMENTS 2020-01-31 Doctor Unasschad , [facility] 05:01:00 Briar [facility] HOSPITAL ADM - MISC 2020-01-31 Doctor [facility]00 [place] [facility] HOSPITAL ADMISSION 2020-01-31 Doctor Unasschad, [facility] 05:01:00 Briar [facility] CT ABDOMEN PELVIS W CONTRAST 2019-12-18 Meka Hammonds Un iversity of 22:11:19 [facility] URINALYSIS 2019-12-18 Sonya [facility] 21:07:00 [facility] LIPASE 2019-12-18 Sonya [facility] 20:39:00 [facility] TROPONIN I 2019-12-18 [facility] 20:39:00 [facility] HEPATIC FUNCTION PANEL ([id number]) 2019-12-18 Sonya [facility] (ALB,T.PRO,BILI 20:39:00 [facility] T,BU/BC,ALT,AST,ALK PHOS) Branch BASIC METABOLIC PANEL (NA, K, CL, 2019-12-18 Sonya [facility] CO2, GLUCOSE, BUN, CREATININE, CA) 20:39:00 [facility] CBC WITH DIFF 2019-12-18 [facility] 20:[facility]00 [facility] CONSENT/REFUSAL FOR DIAGNOSIS AND 2019-12-18 Doctor Dung santiago, [facility] 20:15:38 Briar [facility] XR CHEST 1 VW COVID 2019-08-22 Erasmo Grayson [facility] 01:15:45 [facility] LIPASE 2019-08-22 [facility] of 01:00:00 [facility] TROPONIN I 2019-08-22 [facility] of 01:00:00 [facility] COMP. METABOLIC PANEL ([id number]) 2019-08-22 [facility] U niversity of 01:00:00 [facility] CBC WITH DIFFERENTIAL 2019-08-22 [facility] PROTHROMBIN TIME / INR 2019-08-22 [facility] ty of 01:00:00 [facility] ACTIVATED PARTIAL THRMPLAS KIMANI 2019-08-22 [facility] of 01:00:00 [facility] URINALYSIS 2019-08-22 [facility] of 01:00:00 [facility] CORONAVIRUS COVID-19 TESTING 2019-08-22 [facility] Un iversity of 01:00:00 [facility] EKG-12 LEAD 2019-08-22 [facility] of 00:52:01 [facility] CONSENT/REFUSAL FOR DIAGNOSIS AND 2019-08-22 [facility] 00[facility]30:30 Bri[place] [facility] LIPASE 2019-06-25 [facility] of 22:49:00 [facility] TROPONIN I 2019-06-25 [facility] 22:49:00 [facility] HEPATIC FUNCTION PANEL ([id number]) 2019-06-25 [facility] of (ALB,T.PRO,BILI 22:49:00 [facility] T,BU/BC,ALT,AST,ALK PHOS) Branch BASIC METABOLIC PANEL (NA, K, CL, 2019-06-25 [facility] of CO2, GLUCOSE, BUN, CREATININE, CA) 22:49:00 [facility] CBC WITH DIFFERENTIAL 2019-06-25 [facility] y of 22:49:00 [facility] EKG-12 LEAD 2019-06-25 [facility] of 22:33:31 [facility] URINALYSIS 2019-06-25 Gary Skaggs [place] of 22:13:00 [facility] LIPASE 2019-06-19 [facility] of 20:30:00 [facility] TEST, SERUM 2019-06-19 [facility] ty of 20:30:00 [facility] HEPATIC FUNCTION PANEL ([id number]) 2019-06-19 [facility] of (ALB,T.PRO,BILI 20:30:00 [facility],BU/BC,ALT,AST,ALK PHOS) [place] BASIC METABOLIC PANEL (NA, K, CL, 2019-06-19 [facility] of CO2, GLUCOSE, BUN, CREATININE, CA) 20:30:00 [facility] CBC WITH DIFFERENTIAL 2019-06-19 [facility] ty of 20:30:00 [facility] URINALYSIS 2019-06-19 [facility] of 20:30:00 [facility] CONSENT/REFUSAL FOR DIAGNOSIS AND 2019-06-19 [facility] [place] 19:35:06 Briar [facility] CT ABDOMEN PELVIS W CONTRAST 2019-05-20 Gary Skaggs [facility] versity of 02:03:54 [facility] LIPASE 2019-05-20 [facility] of 01:07:00 [facility] COMP. METABOLIC PANEL ([id number]) 2019-05-20 Gary Skaggs iversity of 01:07:00 [facility] CBC WITH DIFFERENTIAL 2019-05-20 [facility] of 01:07:00 [facility] URINALYSIS 2019-05-20 [facility] of 01:07:00 [facility] NOTICE OF PRIVACY PRACTICES 2019-05-20 Doctor Unassigned, U niversity of 00:08:29 Briar [facility] CONSENT/REFUSAL FOR DIAGNOSIS AND 2019-05-20 [facility] [place] 00:08:14 [place]ar [facility] CT ANKLE RIGHT WO CONTRAST 2018-12-05 Ector Frank rsity of 16:22:01 [facility] XR FOOT 3+ VW RIGHT 2018-12-01 Jaki Polanco Sydnie [facility] o f 19:59:31 [facility] XR TIBIA FIBULA 2 VW RIGHT 2018-12-01 Jaki Polanco [facility] rsity of 19:59:07 [facility] BASIC METABOLIC PANEL (NA, K, CL, 2018-11-16 Kimberlee Cummings h University of CO2, GLUCOSE, BUN, CREATININE, CA) 09:31:00 [facility] CBC WITH DIFFERENTIAL 2018-11-16 [facility] of 09:31:00 [facility] ABORH CONFIRMATION 2018-11-16 [facility] of 00:34:00 [facility] URINE CULTURE 2018-11-16 [facility] of 00:00:00 [facility] URINALYSIS 2018-11-15 [facility] of 23:58:00 [facility] TYPE AND SCREEN 2018-11-15 [facility] of 23:00:00 [facility] TROPONIN I 2018-11-15 [facility] of 21:08:00 [facility] LIPID PANEL ([id number])(TOTAL 2018-11-15 [facility] of CHOLESTEROL, TRIGLYCERIDES, HDL) 21:08:[address] [facility] [address] ABDOMEN PELVIS W CONTRAST 2018-11-15 Mariana Ramirez versity of 16:32:45 [facility] HELICOBACTER PYLORI AB, IGG 2018-11-15 [facility] ersity of 15:51:00 [facility] HEPATITIS B SURFACE ANTIBODY 2018-11-15 Mariana Ramirez versity of 15:51:00 [facility] HCV ANTIBODY 2018-11-15 Mariana Ramirez of 15:51:00 [facility] HEPATITIS A VIRUS ANTIBODY IGM 2018-11-15 Mariana Ramirez niversity of 15:51:00 [facility] HEPATITIS B CORE ANTIBODY IGM 2018-11-15 Mariana Ramirez iversity of 15:51:00 [facility] ACETAMINOPHEN 2018-11-15 Mariana Ramirez of 15:50:00 [facility] XR CHEST 1 VW 2018-11-15 Mariana Ramirez of 15:08:18 [facility] LIPASE 2018-11-15 Mariana Ramirez of 14:40:00 [facility] TROPONIN I 2018-11-15 Mariana Ramirez of 14:40:00 [facility] HEPATIC FUNCTION PANEL ([id number]) 2018-11-15 Mariana Ramirez niversity of (ALB,T.PRO,BILI 14:40:00 [facility] T,BU/BC,ALT,AST,[facility] BASIC METABOLIC PANEL (NA, K, CL, 2018-11-15 Florina Ramirez University of CO2, GLUCOSE, BUN, CREATININE, CA) 14:40:00 [facility] CBC WITH DIFFERENTIAL 2018-11-15 Mariana Ramirez [place] of 14:40:00 [facility] GLYCOSYLATED HEMOGLOBIN (A1C) 2018-11-15 Maryellen Cummings Un iversity of 14:40:00 Mal [facility] PROTHROMBIN TIME / INR 2018-11-15 [facility] 14:40:00 [facility] ACTIVATED PARTIAL THRMPLAS KIMANI 2018-11-15 Mariana Ramirez U niversity of 14:40:00 [facility] N-TERMINAL PRO-BNP 2018-11-15 Mariana Raimrez [place] of 14:40:00 [facility] EKG-12 LEAD 2018-11-15 Mariana Ramirez [place] of 14:26:03 [facility] CONSENT/REFUSAL FOR DIAGNOSIS AND 2018-11-15 [facility] [place] 14:13:05 Briar [facility] Plan of Care Planned Activity Planned Date Details Comments Source Future Scheduled 2023-09-01 Screening for malignant [facility] 00:00:00 neoplasm of colon Medical Ce nter (procedure) [code = 134487262] Future Scheduled 2023-09-01 Screening for malignant [facility] 00:00:00 neoplasm of colon Medical Ce nter (procedure) [code = 749046027] Future Scheduled 2023-09-01 Screening for malignant [facility] 00:00:00 neoplasm of colon Medical Ce nter (procedure) [code = 627495315] Future Scheduled 2023-09-01 Screening for malignant [facility] 00:00:00 neoplasm of colon Medical Ce nter (procedure) [code = 253429089] Future Scheduled 2023-02-01 Lipid panel (procedure) [facility] 00:00:00 [code = 73320688] Medical Ce nter Future Scheduled 2023-02-01 Lipid panel (procedure) [facility] 00:00:00 [code = 00506364] Medical Ce nter Future Scheduled 2021-12-14 INFLUENZA VACCINE (#1) [facility]00 [code = INFLUENZA Medical Ce nter VACCINE (#1)] Future Scheduled 2021-12-14 INFLUENZA VACCINE (#1) [facility] 00:00:00 [code = INFLUENZA Medical Ce nter VACCINE (#1)] Future Scheduled 2021-04-[address] [facility] 00:00:00 (12+) [code = Medical Center DEPRESSION SCREENING (12+)] Future Scheduled 2021-04-[address] [facility] 00:00:00 (12+) [code = Medical Center DEPRESSION SCREENING (12+)] Future Scheduled 2020-12-19 COVID-19 VACCINE (3 - [facility]00 Booster for [facility] series) [code = COVID-19 VACCINE (3 - Booster for Moderna series)] Future Scheduled 2020-12-19 COVID-19 VACCINE (3 - [...] FIRST YEAR if no IPPE)] Future Scheduled 2016-04-[address] [facility] 00:00:00 WELLNESS (YEAR 2 or Medical Center FIRST YEAR if no IPPE) [code = MEDICARE ANNUAL WELLNESS (YEAR 2 or FIRST YEAR if no IPPE)] Future Scheduled 2012 SHINGLES VACCINES ([address] [facility] 00:00:00 2) [code = SHINGLES Medical Center VACCINES (1 of 2)] Future Scheduled 2012 SHINGLES VACCINES ([address] [facility] 00:00:00 2) [code = SHINGLES Medical Center VACCINES (1 of 2)] Future Scheduled 1983-11-02 Screening for malignant [facility] 00:00:00 neoplasm of cervix Medical C enter (procedure) [code = 004515225] Future Scheduled 1983-11-02 Screening for malignant [facility] 00:00:00 neoplasm of cervix Medical C enter (procedure) [code = 848243131] Future Scheduled 1981 DTAP/TDAP/TD VACCINES [facility] 00[facility]00:00 (1 - Tdap) [code = Medical C enter DTAP/TDAP/TD VACCINES (1 - Tdap)] Future Scheduled 1981 DTAP/TDAP/TD VACCINES [facility] 00:00:00 (1 - Tdap) [code = Medical C enter DTAP/TDAP/TD VACCINES (1 - Tdap)] Future Scheduled 1962 Screening for malignant [facility] 00:00:00 neoplasm of breast Medical C enter (procedure) [code = 543610844] Future Scheduled 1962 CT Colonography (combo) [facility] 00:00:00 [code = CT Colonography [facility] (combo)] Future Scheduled 1962 Screening for malignant [facility] 00:00:00 neoplasm of colon Medical Ce nter (procedure) [code = 585135369] Future Scheduled 1962 Screening for malignant [facility] 00:00:00 neoplasm of colon Medical Ce nter (procedure) [code = 365292233] Future Scheduled 1962 Sigmoidoscopy [code = [facility] S[facility]oidoscopy] Medical Cente r Future Scheduled 1962 Screening for malignant [facility] 00:00:00 neoplasm of breast Medical C enter (procedure) [code = 551145440] Future Scheduled 1962 CT Colonography (combo) [facility] 00:00:00 [code = CT Colonography [facility] (combo)] Future Scheduled 1962 Screening for malignant [facility] 00:00:00 neoplasm of colon Medical Ce nter (procedure) [code = 244416936] Future Scheduled 1962 Screening for malignant [facility] 00:00:00 neoplasm of colon Medical Ce nter (procedure) [code = 513726568] Future Scheduled 1962 Sigmoidoscopy [facility]code = [facility] S[facility]oidoscopy] Medical Cente r Encounters Start End Encounter Admission Attending Care Care Encounter Source Date/Time Date/Time Type Type Clinicians Facility Department ID 2021-12-29 Outpatient Slade, Na STLMLC STLMLC [id number] Common 09:54:01 [facility] 2021-12-26 Outpatient Slade, Na STLMLC STLMLC [id number] 2 Common 08:22:00 [facility] 2021-12-22 Outpatient Slade, Na STLMLC STLMLC [id number] 2 Common 08:47:00 [facility] 2021-09-19 Outpatient Slade, Na STLMLC STLMLC [id number] 2 Common 13:44:00 [facility] 2021-08-16 Outpatient Slade, Na STLMLC STLMLC [id number] 2 Common 08:30:01 [facility] 2021-06-14 Outpatient Slade, Na STLMLC STLMLC [id number] 2 Common 10:15:02 [facility] 2021-05-25 Outpatient Colette PIPER [facility] JARROD [id number] Univers 16:04:35 [facility] 2021-05-10 Outpatient Slade, Na STLMLC STLMLC [id number] 2 Common 14:36:16 [facility] 2021-05-10 Outpatient Sldae, Na STLMLC STLMLC [id number] 2 Common 14:35:31 [facility] 2021-05-10 Outpatient Slade, Na STLMLC STLMLC [id number] 2 Common 14:33:15 [facility] 2021-05-10 Outpatient Slade, Na STLMLC STLMLC [id number] 2 Common 14:26:40 [facility] 2021-05-10 Outpatient Slade, Na STLMLC STLMLC [id number] 2 Common 14:26:20 [id number] [facility] 2021-05-10 Outpatient Slade, Na STLMLC STLMLC [id number] 2 Common 13:09:45 [id number] [facility] 2021-05-10 Outpatient Slade, Na STLMLC STLMLC [id number] 2 Common 12:53:19 [id number] [facility] 2021-05-10 Outpatient Slade, Na STLMLC STLMLC [id number] 2 Common 12:44:09 [id number] [facility] 2021-05-10 Outpatient Slade, Na STLMLC STLMLC [id number] 2 Common 12:41:43 [id number] [facility] 2021-05-10 Outpatient Slade, Na STLMLC STLMLC [id number] 2 Common 12:14:04 11153 [facility] 2021-05-10 Outpatient Slade, Na STLMLC STLMLC [id number] 2 Common 12:09:45 [id number] [facility] 2021-05-10 Outpatient Slade, Na STLMLC STLMLC [id number] 2 Common 12:08:20 [id number] [facility] 2021-05-10 Outpatient Slade, Na STLMLC STLMLC [id number] 2 Common 11:31:43 [id number] [facility] 2021-05-10 Outpatient Slade, Na STLMLC STLMLC [id number] 2 Common 11:27:56 [id number] [facility] 2021-05-10 Outpatient Slade, Na STLMLC STLMLC [id number] 2 Common 11:27:26 [id number] [facility] 2021-05-10 Outpatient Slade, Na STLMLC STLMLC [id number] 2 Common 11:16:24 [id number] [facility] 2021-04-12 Outpatient R KODI [facility] BRETT [id number] Univers 10:13:10 ARIK Stokes ity [facility] 2021-02-12 Outpatient R VERA [facility] JARROD [id number] Univers 02:51:20 MOISE ity [facility] 2021-02-11 Emergency [facility] [id number] Univers 18:57:51 ity [facility] 2021-02-11 Emergency [facility] [id number] Univers 10:52:36 ity [facility] 2021-02-10 Emergency [facility] [id number] Univers 23:34:27 ity [facility] 2021-02-10 Emergency [facility] [id number] Univers 16:03:46 ity [facility] 2021-02-09 Emergency [facility] [id number] Univers 14:07:13 ity [facility] 2021-02-09 Emergency [facility] [id number] Univers [facility] [place] [facility]NY[facility] Surgery [id number] [facility] 22:26:45 GOTTI 2021-01-21 Inpatient ER NGUYỄN, [facility] Gastro [id number] [facility] 22:24:24 2021-01-21 Outpatient PENNY, [facility] Surgery [id number] [facility] 18:10:30 GOTTI 2020-08-26 Inpatient ER NGUYỄN, [facility] General Med [id number] [facility] 02:30:00 2022-01-02 2022-01-02 Outpatient R FE [facility] [id number] Univers 10:00:00 10:00:[id number] [facility] 2022-01-02 2022-01-02 [facility] [id number] Univers 10:00:00 10:00:[address] [facility] 2022-01-02 2022-01-02 Orders Doctor JAQUELIN [id number] Univers 00:00:00 00:00:00 Only Unassigned, KATHIE [id number] ity of [place]ar [facility] [id number] Archie as [phone] [address] 2021-12-13 2021-12-13 ambulatory STLMLC STLMLC [id number] Common 00:00:00 00:00:00 [facility] 2021-11-13 2021-11-13 ambulatory STLMLC STLMLC [id number] Common 00:00:00 00:00:00 [facility] 2021-11-03 2021-11-03 Outpatient R OSIEL SIMPSON [facility] [id number] Univers 08:00:00 08:00:00 OSIEL SIMPSON [id number] ity of [facility] 2021-11-02 2021-11-02 [facility] [id number] Univers 04:35:00 08:22:00 MARIANA li [facility] 2021-11-02 2021-11-02 [facility] [id number] Univers 04:35:00 08:22:00 Mariana MARCUM [id number] i ty [facility] 4.2.7.2.686 [facility] [id number] [facility] 084 Branch 2021-10-25 2021-10-25 Orders Doctor JAQUELIN [id number] Univers 00:00:00 00:00:00 Only Unassigned, KATHIE [id number] ity of [facility] [id number] Archie [phone] [facility] 009 Branch 2021-10-19 2021-10-19 ambulatory STLMLC STLMLC [id number] Common 00:00:00 00:00:00 [facility] 2021-10-18 2021-10-18 ambulatory STLMLC STLMLC [id number] Common 00:00:00 00:00:00 [facility] 2021-10-06 2021-10-06 ambulatory STLMLC STLMLC [id number] Common 00:00:00 00:00:00 [facility] 2021-09-29 2021-09-29 Outpatient R JENNIFER DENNY [facility] SOR [id number] Univers 06:25:00 10:55:00 ZULEMA li [facility] 2021-09-29 2021-09-29 Hospital [facility] [id number] Univers 06:25:00 10:55:00 Encounter Zulema MARCUM [id number] ity [facility] [id number] [facility] [phone] [facility] 071 Branch 2021-09-29 2021-09-29 Surgery [facility] [id number] Univers 07:45:00 10:15:00 Zulema MARCUM [id number] ity of [facility] [id number] [id number] [facility] 020 Branch 2021-09-29 2021-09-29 Anesthesia [address] Arana [facility] [id number] Univers 07:57:00 09:44:00 Event Margarito Jerome [id number] ity of [facility] [id number] [phone] [facility] 020 Branch 2021-09-29 2021-09-29 Orders Doctor JAQUELIN 1.2.840.114 [id number] Univers 00:00:00 00:00:00 Only Unassigned, KATHIE [id number] ity of [place] 4.2.7.2.686 Archie as [phone] [facility] 009 Branch 2021-09-27 2021-09-27 Laboratory Only, Adc Test [facility] 1.2.840. 114 [id number] Univers 08:30:00 08:45:00 Only Zulema Rodriguez [id number] ity of [facility] [place].2.[place] [id number] [facility] [address] [place] 2021-09-27 2021-09-27 Outpatient R JENNIFER DENNY, [facility] [id number] Univers 08:30:00 08:30:00 ZULEMA li of [facility] 2021-09-27 2021-09-27 Manager Labor Delivery Elizabeth, Adc Lab Main [facility] 1.2.8 40.114 [id number] Univers 08:15:00 08:30:00 Visit Zulema Rodriguez [id number] ity of [facility] [id number] [id number] [facility] 353 [facility] 2021-09-27 2021-09-27 Outpatient R [facility] [id number] Univers 08:15:00 08:15:00 [id number] ity of [facility] 2021-09-27 2021-09-27 Orders Doctor JAQUELIN 1.2.840.114 [id number] Univers 00:00:00 00:00:00 Only Unassigned, KATHIE [id number] ity of [place] 4.2.7.2.686 Archie as [phone] [facility] 009 Branch 2021-09-21 2021-09-21 ambulatory [facility] [id number] Common 00:00:00 00:00:00 [facility] 2021-09-12 2021-09-12 Transition AlixSHANNAN floresLisa 1.2.840.114 [id number] Univers 00:00:00 00:00:00 of Care Cyn WILLS [id number] i ty of [place] [id number] [facility] 403 Branch 2021-09-01 2021-09-08 Inpatient X ALISHA NEMICHOACANO BRETT [id number] Univers 13:22:00 17:57:00 RAF li [facility] 2021-09-01 2021-09-08 [facility] Collin, Jaki HUANG 1.2.840.1 [id number] Univers 13:22:00 17:57:00 Encounter Raf Greene 350.1.1 3.10 ity of [facility] [id number] [place] [id number] [facility] 095 Branch 2021-09-08 2021-09-08 [facility] [id number] Common 00:00:00 00:00:00 [facility] 2021-08-27 2021-08-27 Emergency X SASHA [facility] ERT [id number] Univers 10:45:00 15:33:00 MARU li [facility] 2021-08-27 2021-08-27 Emergency Sasha NEMICHOACANO 1.2.840.114 [id number] Univers 10:45:00 15:33:00 Maru MARCUM [id number] ity [place] [id number] [facility] 084 Branch 2021-08-25 2021-08-25 ambulatory STLMLC STLMLC [id number] Common 00:00:00 00:00:00 [facility] 2021-08-22 2021-08-22 ambulatory STLMLC STLMLC [id number] Common 00:00:00 00:00:00 [facility] 2021-08-07 2021-08-07 ambulatory STLMLC STLMLC [id number] Common 00:00:00 00:00:00 [facility] 2021-08-01 2021-08-01 Transition NHAN Hussein 1.2.840.114 [id number] Univers 00:00:00 00:00:00 of Juan WILLS [id number] it y of [place] [id number] [facility] 403 Branch 2021-08-01 2021-08-01 ambulatory STLMLC STLMLC [id number] Common 00:00:00 00:00:00 [facility] 2021-07-23 2021-07-29 Inpatient X AIDAN [facility] BRETT [id number] Univers 15:34:00 13:50:00 FRED li [facility] 2021-07-23 2021-07-29 [facility] ArieMeka jean [facility] 1.2.840. 114 [id number] Univers 15:34:00 13:50:00 Encounter Liliya Hinojosa 350.1.13.10 ity of [place] 4.2.7.2.686 [facility] [phone] [facility] [address] 2021-07-04 2021-07-04 [facility] JARROD [id number] Univers 10:42:00 13:20:00 GULSHAN ity [facility] 2021-07-04 2021-07-04 [facility] 1.2.540.104 [id number] Univers 10:42:00 13:20:00 Encounter Gulshan MARCUM 350.1.13.10 ity of [place] [phone] [facility] [address] 2021-07-04 2021-07-04 Surgery [facility] 1.2.840.114 [id number] Univers 12:00:00 12:39:00 Gulshan MARCUM 350.1.13.10 i ty of [place] 4.2.7.2.686 [facility] SURGICAL [id number] [facility] [address] 2021-07-04 2021-07-04 Orders Doctor JAQUELIN 1.2.840.114 [id number] Univers 00:00:00 00:00:00 Only Unassigned, KATHIE 350.1.13.10 ity of [facility] 4.2.7.2.686 Archie [phone] [facility] [address] 2021-06-15 2021-06-15 ambulatory STLMLC STLMLC [id number] Common 00:00:00 00:00:00 [facility] 2021-06-12 2021-06-12 ambulatory STLMLC STLMLC [id number] Common 00:00:00 00:00:00 [facility] 2021-06-05 2021-06-05 Outpatient R [facility] [id number] -[id number] Univers 10:30:00 10:30:[id number] [facility] 2021-06-05 2021-06-05 [facility] [id number] Univers 10:30:00 10:30:[address] [facility] 2021-06-03 2021-06-03 Emergency [facility] ERT [id number] Univers 14:00:00 22:08:[address] [facility] 2021-06-03 2021-06-03 [facility] 1.2.818.792 [id number] Univers 14:00:00 22:08:00 Mariana MARCUM 350.1.13.10 i ty of [place] 4.2.7.2.686 [facility] [phone] [facility] [address] 2021-06-01 2021-06-01 ambulatory STLMLC STLMLC [id number] Common 00:00:00 00:00:00 [facility] 2021-05-21 2021-05-22 Emergency X EBGILMER, [facility] ERT [id number] Univers 23:29:00 01:11:00 CONSUELO itshey [facility] 2021-05-21 2021-05-22 Emergency Ebrahim, [facility] 1.2.840.114 [id number] Univers 23:29:00 01:11:00 Consuelo BRIGGSSAN [facility] 350.1.13.10 i ty of [place] 4.2.7[place]2.686 [place] [phone] [facility] [address] [place] 2021-05-19 2021-05-19 Letter JAQUELIN Mendoza 1..840.114 [id number] Univers 00:00:00 00:00:00 (Out) Kelsy VÁZQUEZ 350.1.13.10 it y of [facility] 4.2.7.2.686 Archie as [phone] [facility] [address] [place] 2021-05-19 2021-05-19 Telephone Nurse, Phillip [facility] 1..840.114 [id number] Univers 00:00:00 00:00:00 Db Urgent HEALTH 350.1.13.10 ity of [facility] 4.2.7.2.686 Archie as BALAJI?BLEA [phone] [address] MEDICAL OFFICE [facility] 2021-05-18 2021-05-18 Outpatient R JAROCHO, [facility] [id number] Univers 09:00:00 09:41:26 CONSUELO itshey [facility] 2021-05-18 2021-05-18 Urgent Ebgilmer, Consuelo [facility] 1.2.840.114 [id number] Univers 09:00:00 09:20:00 Care Green, Korina HEALTH 350.1.13.10 ity of [place] 4.2.7.2.686 Archie as BALAJI?BLEA [id number] [address] MEDICAL OFFICE BUILDING 2021-05-18 2021-05-18 Outpatient R [facility] [id number] -[id number] Univers 09:00:00 09:00:00 [id number] ity [facility] 2021-05-18 2021-05-18 Letter Doctor HAMMER 1.2.840.114 [id number] Univers 00:00:00 00:00:00 (Out) Unassigned, KATHIE 350.1.13.10 ity of [facility] 4.2.7.2.686 Archie as [phone] [facility] [address] 2021-05-15 2021-05-15 ambulatory STLMLC STLMLC [id number] Common 00:00:00 00:00:00 [facility] 2021-05-09 2021-05-09 ambulatory STLMLC STLMLC [id number] Common 00:00:00 00:00:00 [facility] 2021-04-19 2021-04-19 ambulatory STLMLC STLMLC [id number] Common 00:00:00 00:00:00 [facility] 2021-04-18 2021-04-18 Outpatient R [facility] [id number] -[id number] Univers 10:15:00 10:15:00 [id number] ity [facility] 2021-04-18 2021-04-18 Outpatient R KODI [facility] [id number] Univers 10:15:00 10:15:00 ARIK Stokes o f [facility] 2021-04-15 2021-04-15 Emergency [facility] 1.2.840.114 [id number] Univers 13:41:00 15:39:00 Consuelo MARCUM 350.1.13.10 i ty [facility] 4.2.7.2.686 [place] [facility] [phone] [facility] [address] 2021-04-15 2021-04-15 Nurse Nurse, Phillip Db Urgent Care [facility] 1.2.840.114 [id number] Univers 13:20:00 13:40:00 Visit Manoj [facility] 350.1.13.10 ity [facility] 4.2.7.2.686 Archie as BALAJI?BLEA [phone] [address] MEDICAL OFFICE BUILDING 2021-04-15 2021-04-15 Outpatient R [facility] [id number] Univers 13:20:00 13:37:39 KORINA ity [facility] 2021-04-15 2021-04-15 Outpatient [facility] ERT [id number] Univers 13:20:00 13:37:[address] [facility] 2021-04-15 2021-04-15 Outpatient R [facility] [id number] -[id number] Univers 13:20:00 13:20:[id number] [facility] 2021-04-03 2021-04-03 ambulatory STLMLC STLMLC [id number] Common 00:00:00 00:00:00 [facility] 2021-03-31 2021-03-31 ambulatory STLMLC STLMLC [id number] Common 00:00:00 00:00:00 [facility] 2021-03-25 2021-03-25 Emergency X ELIZABETHMITZYFalguniNORTHER[facility] ERT [id number] Univers 18:03:00 21:41:[address] [facility] 2021-03-25 2021-03-25 [facility] 1.2.840.114 [id number] Univers 18:03:00 21:41:00 Consuelo [place] 350.1.13.10 i ty [facility] 4.2.7.2.686 [place] [facility] [phone] [address] 2021-03-25 2021-03-25 Outpatient R [facility] [id number] -20 Univers 17:30:00 17:30:[id number] [facility] 2021-03-25 2021-03-25 Outpatient R HAKEEM [facility] [id number] Univers 11:40:00 11:23:[address] [facility] 2021-03-25 2021-03-25 Imm/Inj Vaccine, Ang Db [facility] 1.2.840 .114 [id number] Univers 11:00:13 11:10:13 Visit Hakeem Tosha [facility] 350.1.13.10 ity [facility] 4.2.7.2.686 Archie as BALAJI?BLEA [id number] [address] MEDICAL OFFICE BUILDING 2021-03-21 2021-03-21 ambulatory STLMLC STLMLC [id number] Common 00:00:00 00:00:00 [facility] 2021-03-20 2021-03-20 Emergency X [facility]THER[facility] ERT [id number] Univers 16:03:00 19:39:00 MEKA ity [facility] 2021-03-20 2021-03-20 Emergency [facility] 1.2.450.090 [id number] Univers 16:03:00 19:39:00 Meka MARCUM 350.1.13.10 ity [facility] 4.2.7.2.686 [facility] [phone] [address] 2021-02-12 2021-02-12 Emergency X [facility] ERT [id number] Univers 14:09:00 21:08:00 ROSALINDA li [facility] 2021-02-12 2021-02-12 Emergency [facility] 1.2.295.188 [id number] Univers 14:09:00 21:08:00 Rosalinda MARCUM 350.1.13.10 ity [facility] 4.2.7.2.686 [facility] [id number] [address] 2021-01-30 2021-01-30 Outpatient R FE [facility] [id number] -[id number] Univers 00:00:00 00:00:00 VIRA [id number] ity [facility] 2021-01-17 2021-01-18 Emergency [facility] 1.2.840.114 [id number] Univers 21:29:00 01:13:00 Maru Marcum 350.1.13.10 ity [facility] 4.2.7.2.686 [facility] [phone] [address] 2021-01-17 2021-01-18 Emergency [facility] ERT [id number] Univers 21:29:00 01:13:00 MARU li [facility] 2021-01-17 2021-01-17 Orders Doctor HAMMER 1.2.840.114 [id number] Univers 00:00:00 00:00:00 Only Unassigned, KATHIE 350.1.13.10 ity of [facility] 4.2.7.2.686 Archie as [phone] [facility] [address] [place] 2021-01-07 2021-01-07 [facility] 1.2.376.861 [id number] Univers 11:38:27 23:59:00 Encounter [facility] 350.1.13.10 ity of [place] 4.2.7.2.686 Archie as Balaji?Blea [phone] Ak [place] demond 808 [place] Medical Office [facility] 2021-01-07 2021-01-07 Outpatient R [facility] [id number] Univers 11:40:00 11:55:26 [facility] 2021-01-07 2021-01-07 [facility]gent [facility] 1.2.840.114 [id number] Univers 11:22:24 11:55:26 Care [facility] 350.1.13.10 ity [facility] 4.2.7.2.686 Archie as Balaji?Blea [phone] [facility] 370 [place] Medical Office [facility] 2021-01-07 2021-01-07 Outpatient R [facility] [id number] -20 Univers 11:40:00 11:40:[id number] [facility] 2021-01-07 2021-01-07 Letter JAQUELIN [place] 1.2.840.114 [id number] Univers 00:00:00 00:00:00 (Out) Karlene VÁZQUEZ 350.1.13.10 i ty of [facility] 4.2.7.2.686 Archie as [phone] [facility] [address] [place] 2021-01-02 2021-01-02 Out[facility] [id number] -[id number] Univers 00:00:00 00:00:[id number] [facility] 2020-12-30 2020-12-30 Emergency X SASHA [facility] ERT [id number] Univers 13:14:00 17:53:[address] [facility] 2020-12-30 2020-12-[address] [facility] 1.2.840.114 [id number] Univers 13:14:00 17:53:00 Maru Christopher Marcum 350.1.13.10 ity of [place] 4.2.7.2.686 [place] [phone] [facility] [address] [place] 2020-12-30 2020-12-30 [facility] 1.2.840.114 [id number] Univers 10:00:12 10:49:11 Visit Vira [place] 350.1.13.10 ity of [place] 4.2.7.2.686 [place] Profess[place] [phone] Ak dical nal [address] [place] [address] 2020-12-30 2020-12-30 Outpatient R AD, [facility] [id number] Univers 09:30:00 10:49:11 VIRA ity [facility] 2020-12-30 2020-12-30 Outpatient R AD, [facility] [id number] -20 Univers 08:30:00 08:30:00 VIRA [id number] ity [facility] 2020-12-23 2020-12-23 [facility] 1.2.840.114 [id number] Univers 15:59:00 23:59:00 Encounter Vira Marcum 350.1.13.10 ity of [place] 4.2.7.2.686 [facility] [phone] [facility] [address] [place] 2020-12-23 2020-12-23 Outpatient R AD, [facility] [id number] -[id number] Univers 00:00:00 00:00:00 VIRA [id number] ity [facility] 2020-12-23 2020-12-23 Outpatient R AD, [facility] [id number] Univers 00:00:00 00:00:00 VIRA ity [facility] 2020-12-16 2020-12-16 [facility] 1.2.840.114 [id number] Univers 09:56:42 11:11:19 Visit Vira Marcum 350.1.13.10 ity of [place] 4.2.7.2.686 [place] [phone] Ak dical nal 134 [facility] 2020-12-16 2020-12-16 Outpatient R [facility] [id number] -[id number] Univers 10:00:00 10:00:[id number] [facility] 2020-12-16 2020-12-16 Outpatient [facility] [id number] Univers 10:00:00 10:00:[address] [facility] 2020-12-14 2020-12-14 Outpatient STLMLC STLMLC [id number] Common 00:00:00 00:00:00 [facility] 2020-12-05 2020-12-05 Emergency [facility] 1.2.840.114 [id number] Univers 14:07:00 18:52:00 Alirio Marcum 350.1.13.10 [facility] 4.2.7.2.686 [facility] [phone] [address] 2020-12-05 2020-12-05 Emergency X [facility] ERT [id number] Univers 14:07: 18:52:[address] [facility] 2020-11-10 2020-11-10 Outpatient STLMLC STLMLC [id number] Common 00:00:00 00:00:00 [facility] 2020-10-11 2020-10-12 Emergency Mariana Ramirez 1.2.840. 114 [id number] 08:30:00 20:40:00 Kadi Duggan 350.1.13.10 [place] [address].2.7.2.68[facility] [id number] [facility] 2020-10-11 2020-10-12 Emergency Mariana Ramirez 1.2.840. 114 [id number] [facility] 08:30:00 20:40:00 Kadi Duggan 350.1.13.10 [place] [address].2.7.2.686 [place] [id number] [address] 2020-10-11 2020-10-12 Outpatient U [facility] [id number] Univers 08:30:00 20:40:00 URIEL ity [facility] 2020-10-04 2020-10-04 Emergency [facility] 1.2.788.405 [id number] 17:45:00 20:23:00 Maisha Marcum 350.1.13.10 [place] 4.2.7.2.686 [place]ector [id number] 084 2020-10-04 2020-10-04 Emergency [facility] 1.2.116.116 [id number] [facility] 17:45:00 20:23:00 Maisha Marcum 350.1.13.10 i ty of [place] 4.2.7.2.686 [facility] [id number] [address] 2020-10-04 2020-10-04 Emergency X [facility] ERT [id number] Univers 17:45:00 20:23:[address] [facility] 2020-09-30 2020-09-30 Outpatient STLMLC STLMLC [id number] Common 00:00:00 00:00:00 [facility] 2020-09-29 2020-09-29 Outpatient STLMLC STLMLC [id number] Common 00:00:00 00:00:00 [facility] 2020-09-19 2020-09-19 Outpatient STLMLC STLMLC [id number] Common 00:00:00 00:00:00 [facility] 2020-09-16 2020-09-16 Outpatient STLMLC STLMLC [id number] Common 00:00:00 00:00:00 [facility] 2020-09-02 2020-09-02 Outpatient STLMLC STLMLC [id number] Common 00:00:00 00:00:00 [facility] 2020-08-05 2020-08-05 Emergency [facility] 1.2.840.114 [id number] 08:16:00 09:12:00 Maru Marcum 350.1.13.10 [place] 4.2.7.2.686 Rector [id number] [id number] 2020-08-05 2020-08-05 Emergency [facility] 1.2.840.114 [id number] Univers 08:16:00 09:12:00 Maru [place] 350.1.13.10 ity of [place] 4.2.7.2.686 [place] [id number] [facility] [address] [place] 2020-08-05 2020-08-05 Emergency [facility] ERT [id number] Univers 08:16:00 09:12:00 MARU ity [facility] 2020-07-19 2020-07-19 Outpatient [facility] [id number] [facility] 11:20:00 11:11:33 SULAIMAN ity [facility] 2020-07-18 2020-07-18 [facility] 1.2.840.114 [id number] 06:28:00 08:29:00 Encounter Moise Maxine [place] 350.1.13.10 [place] 4.2.7.2.686 Surgical [id number] [place] [address] 2020-07-18 2020-07-18 [facility] 1.2.840.114 [id number] Univers 06:28:00 08:29:00 Encounter Moise Maxine [place] 350.1.13.10 ity of [place] 4.2.7.2.686 [place] [id number] [place] 699341 [place] 2020-07-18 2020-07-18 [facility] 1.2.840.114 [id number] 07:30:00 08:00:00 [place] 350.1.13.10 [place] 4.2.7.2.686 Surgical [id number] [place] [address] 2020-07-18 2020-07-18 [facility] 1.2.497.028 [id number] Univers 07:30:00 08:00:00 Moise S [place] 350.1.13.10 ity of [place] 4.2.7.2.686 [place] [id number] [facility] [address] [place] 2020-07-15 2020-07-15 Outpatient R [facility] [id number] -[id number] Univers 13:15:00 13:15:00 [id number] ity [facility] 2020-07-15 2020-07-15 Outpatient R VERA [facility] [id number] Univers 08:00:00 08:00:00 MOISE ity [facility] 2020-07-11 2020-07-11 Outpatient [facility] [id number] Univers 12:00:00 12:00:00 SULAIMAN ity [facility] 2020-07-08 2020-07-08 Outpatient Colette [facility] [id number] Univers 10:40:00 10:40:00 SULAIMAN ity [facility] 2020-07-07 2020-07-07 Emergency Collin, K [facility] 1.2.840.114 [id number] 18:47:00 22:05:00 Sydnie Marcum 350.1.13.10 [place] 4.2.7.2.686 Rector [id number] 084 2020-07-07 2020-07-07 Emergency Jaki Polanco [facility] 1.2.840.114 [id number] Univers 18:47:00 22:05:00 Sydnie Marcum 350.1.13.10 i ty of [place] 4.2.7.2.686 [place] [id number] [facility] [address] [place] 2020-07-07 2020-07-07 Emergency X COLLINJaki [facility] ERT [id number] Univers 18:47:00 22:05:00 ity [facility] 2020-07-07 2020-07-07 Orders Doctor JAQUELIN 1.2.840.114 [id number] 00:00:00 00:00:00 Only Unassigned, KATHIE 350.1.13.10 Briar [facility] 4.2.7.2.686 [id number] 009 2020-07-07 2020-07-07 Orders Doctor JAQUELIN 1.2.840.114 [id number] Univers 00:00:00 00:00:00 Only Unassigned, KATHIE 350.1.13.10 ity of [place] [facility] 4.2.7.2.686 Archie as [phone] [facility] [address] [place] 2020-07-07 2020-07-07 Outpatient STLMLC STLMLC [id number] Common 00:00:00 00:00:00 [facility] 2020-07-04 2020-07-04 [facility] 1.2.840.114 [id number] 06:30:00 08:44:00 Encounter Moise Goodman Chao 350.1.13.10 [place] 4.2.7.2.686 Surgical [id number] [place] [address] 2020-07-04 2020-07-04 [facility] 1.2.840.114 [id number] [facility] 06:30:00 08:44:00 Encounter Moise Goodman Chao 350.1.13.10 ity of [place] 4.2.7.2.686 [place] [id number] [address] 2020-07-04 2020-07-04 Outpatient [facility] JARROD [id number] Univers 06:30:00 08:44:00 MOISE ity of [facility] 2020-07-04 2020-07-04 Orders Doctor JAQUELIN 1.2.840.114 [id number] 00:00:00 00:00:00 Only Unassigned, KATHIE 350.1.13.10 [place] 4.2.7.2.686 [id number] [facility] 2020-07-04 2020-07-04 Orders Doctor JAQUELIN 1.2.840.114 [id number] [facility] 00:00:00 00:00:00 Only Unassigned, KATHIE 350.1.13.10 ity of [place] 4.2.7.2.686 Archie as [id number] [address] 2020-07-01 2020-07-01 Laboratory Only, [facility] 1.2.840.114 [id number] 09:02:10 09:17:10 Only Test [place] 350.1.13.10 [place] 4.2.7.2.686 Rector [id number] 353 2020-07-01 2020-07-01 Laboratory Only, [facility] Test [place] 1.2.840. 114 [id number] [facility] 09:02:10 09:17:10 Only Moise Gamez 350.1.13.1 0 ity [facility] 4.2.7.2.686 [facility] [id number] [facility] [address] 2020-07-01 2020-07-01 Outpatient R [facility] [id number] -[id number] Univers 08:30:00 08:30:00 [id number] ity [facility] 2020-07-01 2020-07-01 [facility] [id number] Univers 08:30:00 08:30:00 MOISE ity [facility] 2020-07-01 2020-07-01 Orders Doctor JAQUELIN 1.2.840.114 [id number] 00:00:00 00:00:00 Only Unassigned, KATHIE 350.1.13.10 Briar [facility] 4.2.7.2.686 [id number] [facility] 2020-07-01 2020-07-01 Orders Doctor JAQUELIN 1.2.840.114 [id number] [facility] 00:00:00 00:00:00 Only Unassigned, KATHIE 350.1.13.10 ity of [place] [facility] 4.2.7.2.686 [facility] [id number] [address] 2020-06-30 2020-06-30 [facility] [id number] Common 00:00:00 00:00:00 [facility] 2020-06-22 2020-06-22 [facility] [id number] Common 00:00:00 00:00:00 [facility] 2020-06-20 2020-06-20 [facility] 1.2.840.114 [id number] 06:29:00 08:58:00 Encounter Moise [place] 350.1.13.10 [place] 4.2.7.2.686 Surgical [id number] [employer] 071 2020-06-20 2020-06-20 [facility] 1.2.840.114 [id number] [facility] 06:29:00 08:58:00 Encounter Moies S [place] 350.1.13.10 ity of [place] 4.2.7.2.686 [place] [id number] [facility] [address] 2020-06-20 2020-06-20 Outpatient R VERA, [facility] JARROD [id number] Univers 06:29:00 08:58:00 MOISE ity of [facility] 2020-06-20 2020-06-20 Anesthesia Abe Arana [facility] 1.2.840.11 [id number] 08:03:00 08:12:00 Event Cuate Seofreedom Marcum 350.1.13.10 [place] 4.2.7.2.686 Surgical [id number] [employer] 020 2020-06-20 2020-06-20 Anesthesia Abe Arana [facility] 1.2.840.11 [id number] [facility] 08:03:00 08:12:00 Event Dominguez Seo 350.1.13.10 ity of [place] 4.2.7.2.[place] [id number] [facility] [address] [place] 2020-06-20 2020-06-20 Orders Doctor JAQUELIN 1.2.840.114 [id number] 00:00:00 00:00:00 Only Unassigned, KATHIE 350.1.13.10 [place] [facility] 4.2.7.2.686 [id number] [facility] 2020-06-20 2020-06-20 Orders Doctor JAQUELIN 1.2.840.114 [id number] Univers 00:00:00 00:00:00 Only Unassigned, KATHIE 350.1.13.10 ity of [place] [facility] 4.2.7.2.686 Archie as [id number] [address] 2020-06-19 2020-06-19 Outpatient [facility] [id number] Univers 08:15:00 08:15:00 ity of [facility] 2020-06-17 2020-06-17 Manager Labor Delivery Marcie Johnson [facility] 1.2.840.114 [id number] 15:27:53 15:42:53 Visit Lab Main [place]ao 350.1.13.10 [place] 4.2.7.2.686 Professio [id number] [address] 2020-06-17 2020-06-17 Manager Labor Delivery Elizabeth, [facility] Lab Main [place] 1.2.8 40.114 [id number] Univers 15:27:53 15:42:53 Visit Moise Gamez 350.1.13.1 0 ity of [place] 4.2.7.2.686 [place] [phone] Me dical [address] 2020-06-17 2020-06-17 Laboratory Only, [facility] 1.2.840.114 [id number] 15:26:19 15:41:19 Only Test [place] 350.1.13.10 [place] 4.2.7.2.686 Rector [id number] [facility] 2020-06-17 2020-06-17 Laboratory Only, [facility] Test [facility] 1.2.840. 114 [id number] Univers 15:26:19 15:41:19 Only Moise Gamez 350.1.13.1 0 [place]y [place] [id number] [address] 2020-06-17 2020-06-17 Outpatient R VERA [facility] [id number] Univers 12:30:00 12:30:00 MOISE ity [facility] 2020-06-17 2020-06-17 Outpatient R [facility] [id number] Univers 12:15:00 12:15:00 [id number] ity [facility] 2020-06-17 2020-06-17 Orders Doctor HAMMER 1.2.840.114 [id number] 00:00:00 00:00:00 Only Unassigned, KATHIE 350.1.13.10 [facility] 4.2.7.2.686 [id number] 2020-06-17 2020-06-17 Orders Doctor HAMMER 1.2.840.114 [id number] Univers 00:00:00 00:00:00 Only Unassigned, KATHIE 350.1.13.10 ity of [facility] 4.2.7.2.686 Archie as [id number] [facility] [address] 2020-05-22 2020-05-22 Outpatient R SALMA, [facility] [id number] Univers 08:50:00 08:50:00 SULAIMAN ity [facility] 2020-05-06 2020-05-06 Emergency Ron, [facility] 1.2.840.114 [id number] 15:21:00 18:38:00 Kirstin Marcum 350.1.13.10 [place] 4.2.7.2.686 [place] [id number] 2020-05-06 2020-05-06 Emergency Ron, [facility] 1.2.840.114 [id number] Univers 15:21:00 18:38:00 Kirstin Marcum 350.1.13.10 i [place] 4[place] [id number] [facility] [address] [place] 2020-05-04 2020-05-04 [place] [place] [facility] [facility] [id number] -20 Univers 09:20:00 09:20:[id number] [facility] 2020-05-04 2020-05-04 Outpatient R [facility] [id number] Univers 09:20:00 09:20:00 [facility] 2020-05-04 2020-05-04 Laboratory Lab, [facility] 1.2.840.114 [id number] 08:54:13 09:14:13 Only Fam Pob I Health 350.1.13.10 [place] 4.2.7.2.686 Professio [phone] [place] [address] [address] One 2020-05-04 2020-05-04 Laboratory Lab, [facility] Fam Pob I [facility] 1.2. 840.114 [id number] Univers 08:54:13 09:14:13 Only Aneroger, [facility] 350.1.13.10 [facility] 4.2.7.2.686 Archie as Professio [phone] Ak dical [address] Office Building One 2020-04-14 2020-04-14 Letter Jeannie Slade 1.2.840.114 [id number] 00:00:00 00:00:00 (Out) KATHIE 350.1.13.10 HOSPITAL 4.2.7.2.686 [phone] 043 2020-04-14 2020-04-14 Jeannie Elizabeth 1.2.840.114 [id number] [facility] 00:00:00 00:00:00 (Out) KATHIE 350.1.13.10 it y of HOSPITAL 4.2.7.2.686 Archie as [phone] [facility] 043 Branch 2020-03-25 2020-03-26 [facility] 1.2.415.558 [id number] 21:13:00 02:01:00 Erasmo Marcum 350.1.13.10 [place] 4.2.7.2.686 R[place] [id number] 08 2020-03-25 2020-03-26 [facility] 1.2.887.289 [id number] [facility] 21:13:00 02:01:00 Erasmo Briggston 350.1.13.10 ity of [place] 4.2.7.2.686 [facility] [phone] [facility] 084 Branch 2020-03-18 2020-03-18 Orders Doctor JAQUELIN 1.2.840.114 [id number] 00:00:00 00:00:00 Only Unassigned, KATHIE 350.1.13.10 Briar [facility] 4.2.7.2.686 [id number] 009 2020-03-18 2020-03-18 Orders Doctor HAMMER 1.2.840.114 [id number] Univers 00:00:00 00:00:00 Only Unassigned, KATHIE 350.1.13.10 ity of Briar [facility] 4.2.7.2.686 Archie as [phone] [facility] 009 Branch 2020-03-08 2020-03-08 Outpatient STLMLC STLC [id number] Common 00:00:00 00:00:00 [facility] 2020-03-07 2020-03-07 Outpatient STLMLC STLMLC [id number] Common 00:00:00 00:00:00 [facility] 2020-01-31 2020-02-08 [facility] Mariana Ramirez [facility] 1.2.840.1 14 [id number] 10:39:00 16:12:00 Encounter Kirstin Ron [facility] 350.1.13.10 Liliya Hinojosa Clear 4.2.7.2.686 Katheryn Retana [phone] [place] [address] ([facility]) 2020-01-31 2020-02-08 [facility] Mariana Ramirez [facility] 1.2.840.1 14 [id number] [facility] 10:39:00 16:12:00 Encounter Kirstin Ron [facility] 350.1.13.10 ity of HairLiliya smith [place] 4.2.7.2.686 [facility] [phone] [facility] [place] [address] Branch ([facility]) 2020-01-11 2020-01-11 Outpatient [facility] [id number] Common 00:00:00 00:00:00 [facility] 2020-01-06 2020-01-06 [facility]patient [facility] [id number] Common 00:00:00 00:00:00 [facility] 2019-12-18 2019-12-18 Emergency [facility] 1.2.993.006 [id number] 15:26:00 19:16:00 Meka Marcum 350.1.13.10 [place] 4.2.7.2.686 Rector [phone] [facility] 2019-12-18 2019-12-18 Emergency [facility] 1.2.694.177 [id number] [facility] 15:26:00 19:16:00 Meka Marcum 350.1.13.10 ity [facility] 4.2.7.2.686 [facility] [phone] [place] [address] Branch 2019-10-06 2019-10-06 Out[facility] [id number] Common 10:40:00 10:40:[address] [facility] 2019-09-17 2019-09-17 Out[facility] 30 [id number] Common 10:24:00 10:24:[address] [facility] 2019-08-21 2019-08-21 [facility] 1.2.618.551 [id number] 19:42:19 23:51:00 Erasmo Marcum 350.1.13.10 [place] 4.2.7.2.686 Rector [id number] 084 2019-08-21 2019-08-21 Emergency X IVY, [facility] ERT [id number] Univers 19:42:19 23:51:00 ERASMO li [facility] 2019-08-21 2019-08-21 Emergency [facility], [facility] 1.2.629.900 [id number] Univers 19:42:19 23:51:00 Erasmo Marcum 350.1.13.10 ity [place] 4.2.7.2.686 [facility] [phone] [address] 2019-07-14 2019-07-14 Out[facility] [id number] Common 15:00:00 15:00:00 StyleTrek [facility] 2019-06-25 2019-06-25 Emergency [facility], [facility] 1.2.840.114 [id number] 16:52:11 20:04:00 Kirstin Marcum 350.1.13.10 [place] 4.2.7.2.686 Rector [id number] 4 2019-06-25 2019-06-25 Emergency [facility], [facility] 1.2.840.114 [id number] [facility] 16:52:11 20:04:00 Kirstin Marcum 350.1.13.10 i ty of [place] 4.2.7.2.[address] [place] [address] [phone] [place] [address] Branch 2019-06-19 2019-06-19 Emergency [facility] 1.2.828.768 [id number] 2000 13:58:11 19:09:00 Rosalinda Marcum 350.1.13.10 [place] [address] [place] [address] [id number] 4 2019-06-19 2019-06-19 Emergency [facility] 1.2.156.422 [id number] 2000 [facility] 13:58:11 19:09:00 Rosalinda Upton Chao 350.1.13.10 ity of [place] 4.2.7.2.686 [facility] [phone] [address] 2019-06-19 2019-06-19 Orders Doctor HAMMER 1.2.840.114 [id number] 00:00:00 00:00:00 Only Unassigned, KATHIE 350.1.13.10 Briar [facility] 4.2.7.2.686 [id number] 009 2019-06-19 2019-06-19 Orders Doctor JAQUELIN 1.2.840.114 [id number] Univers 00:00:00 00:00:00 Only Unassigned, KATHIE 350.1.13.10 ity of [place] [facility] 4.[address] [place] [phone] 2019-05-19 2019-05-19 Emergency [facility] 1.2.723.844 [id number] 18:29:04 21:26:00 Gary Briggston 350.1.13.10 [place] 4.2.7.2.686 Rector [phone] [facility] 2019-05-19 2019-05-19 Emergency X [facility] ERT [id number] Univers 18:29:04 21:26:00 GARY guillermo [facility] 2019-05-19 2019-05-19 Emergency [facility] 1.2.364.138 [id number] Univers 18:29:04 21:26:00 Gary Briggston 350.1.13.10 i ty of [place] 4.2.7.2.686 [facility] [phone] [address] 2019-03-02 2019-03-02 Out[facility] [id number] Common 10:40:00 10:40:[address] [facility] 2019-02-04 2019-02-04 Outpatient [facility] [id number] Common 10:55:00 10:55:[address] [facility] 2018-12-24 2018-12-24 [facility]phone [facility] 1.2.840.114 [id number] 00:00:00 00:00:00 Steven Chen 350.1.13.10 Surgical 4.2.7.2.686 Specialti [phone] es [address] [place] [address] 2018-12-24 2018-12-24 Telephone [facility] 1.2.840.114 [id number] Univers 00:00:00 00:00:00 Steven Chen 350.1.13.10 it y of Surgical 4.2.7.2.686 Archie as Specialti [phone] Ak dical es [address] [facility] 2018-12-18 2018-12-18 [facility] 1.2.840.114 [id number] Univers 08:54:57 23:59:00 Encounter Steven Chen 350.1.13.10 ity of Surgical 4.2.7.2.686 Archie as Specialti [id number] Ak dical es 809 [facility] 2018-12-18 2018-12-18 Office [facility] 1.2.529.500 [id number] [facility] 08:37:16 09:02:40 Visit Steven Chen 350.1.13.10 it y of Surgical 4.2.7.2.686 Archie as Specialti [phone] Ak dical es 198 [facility] 2018-12-08 2018-12-08 Office [facility] 1.2.041.837 [id number] Univers 15:02:42 15:51:02 Visit Steven Chen 350.1.13.10 it y of Surgical 4.2.7.2.686 Archie as Specialti [id number] Ak dicin es 198 [facility] 2018-12-05 2018-12-05 [facility] 1.2.840.114 [id number] Univers 09:47:09 23:59:00 Encounter Ector Maxine [place] 350.1.13.10 ity of [place] 4.2.7.2.[place] [phone] [address] 2018-12-05 2018-12-05 Office [facility] [place] [facility] 1.2.205.922 [id number] Univers 07:55:02 09:26:33 Visit Steven Steiner StreetfaireHD 350.1.13.10 it y of Surgical 4.2.7.2.686 Archie as Specialti [phone] Ak dical es [address] [place] 2018-12-01 2018-12-01 Emergency Jaki Polanco [facility] 1.2.840.114 [id number] Univers 14:24:08 18:38:00 Sydnie Marcum 350.1.13.10 i ty of [place] 4[place]2.7.2.[place] [phone] [facility] 084 Branch 2018-11-18 2018-11-18 Transition Nhan Smith 1.2.840.114 [id number] Univers 00:00:00 00:00:00 of Care Pricilla Wills 350.1.13.10 it y of [place].2.7.2.[place] [phone] [facility] 403 [address] 2018-11-15 2018-11-17 Emergency Mariana Ramirez 1.2.840. 114 [id number] Univers 09:29:33 16:00:00 Sundar Brooke 350.1.13.10 ity of [facility] 4.2.7.2.686 [place] [phone] [facility] 099 Branch 2018-10-07 2018-10-07 Out[facility] [id number] Common 11:00:00 11:00:00 [address] [facility] 2018-07-28 2018-07-28 Outpatient [facility] 25 [id number] Common 09:57:00 09:57:[address] [facility] 2018-07-25 2018-07-25 Outpatient [facility] 25 [id number] Common 14:40:00 14:40:[address] [facility] Results Test Description Test Time Test Comments [...] L [Au tomated message] The system which iyzico nerated this result transmit gulshan reference range: [...] 32.4 g/dL 31.6-35.1 RDW-SD (test code = 04999-4) 45.6 fL 39.0-49.9 RDW-CV (test code = 788-0) 13.2 % 12.0-15.5 PLT (test code = 777-3) See_Comment [Au tomated message] The system which iyzico nerated this result transmit gulshan reference range: 166 - 35 8 10*3/?L. The reference range was not used to interpret th is result as normal/abnormal . MPV (test code = 98212-0) 10.1 fL 9.5-12.9 NRBC/100 WBC (test code = See_Comment [ Automated message] The 8045183283) system which iyzico nerated this result transmit gulshan reference range: 0.0 - 10 .0 /100 WBCs. The reference r luca was not used to interpr et this result as normal/abnor mal. NRBC x10^3 (test code = <0.01 See_Comment [Au tomated message] The 7879428189) system which iyzico nerated this result transmit gulshan reference range: 10*3/?L. The reference range was not u sed to interpret this result as normal/abnormal . GRAN MAT (NEUT) % (test code 47.9 % = 770-8) IMM GRAN % (test code = 0.30 % 6360601937) LYMPH % (test code = 736-9) 39.0 % MONO % (test code = 5905-5) 9.8 % EOS % (test code = 713-8) 2.5 % BASO % (test code = 706-2) 0.5 % GRAN MAT x10^3(ANC) (test 1.76 10*3/uL 1.88-7.09 L code = 4793385524) IMM GRAN x10^3 (test code = <0.03 0.00-0.06 4627696572) LYMPH x10^3 (test code = 1.43 10*3/uL 1.32-3.29 731-0) MONO x10^3 (test code = 0.36 10*3/uL 0.33-0.92 742-7) EOS x10^3 (test code = 0.09 10*3/uL 0.03-0.39 711-2) BASO x10^3 (test code = <0.03 0.01-0.07 704-7) Lab Interpretation (test Abnormal code = 82394-3) [facility]. METABOLIC PANEL (79747)2021-09-08 10:01:57 Test Item Value Reference Range Interpretation Comments NA (test code = 137 mmol/L 135-145 7723972828) K (test code = 4.4 mmol/L 3.5-5.0 5313148626) CL (test code = 105 mmol/L 98-108 2762901274) CO2 TOTAL (test code = 27 mmol/L 23-31 6597027345) AGAP (test code = 2-16 7663084563) BUN (test code = 16 mg/dL 7-23 1975263164) GLUCOSE (test code = 91 mg/dL 70-110 7699093576) CREATININE (test code = 0.80 mg/dL 0.50-1.04 2388139402) TOTAL BILI (test code = 1.3 mg/dL 0.1-1.1 H 1262293457) CALCIUM (test code = 8.9 mg/dL 8.6-10.6 4579025909) T PROTEIN (test code = 7.4 g/dL 6.3-8.2 5927720934) ALBUMIN (test code = 4.0 g/dL 3.5-5.0 8470527029) ALK PHOS (test code = 422 U/L 34-122 H 8007348959) ALTv (test code = 64 U/L 5-35 H 1742-6) AST(SGOT) (test code = 53 U/L 13-40 H 2925472466) eGFR (test code = mL/min/1.73m2 3582490639) KIM (test code = KIM) Association of [...] tests). Lab Interpretation Abnormal (test code = 17993-1) [facility] 10:01:57 Test Item Value Reference Range Interpretation Comments MAGNESIUM (test code = 0748077200) 2.1 mg/dL 1.7-2.4 Lab Interpretation (test code = Normal 98217-6) [facility] QU[facility]IT[facility]IVE [id number] 14:36:03 Test Item Value Reference Range Interpretation Comments Jocelyn-Quiros Plasma Virus, Quant. Source (test code = 78894-1) Jocelyn-Quiros <390 cpy/mL Virus, Quant. Copy/mL (test code = 36243-8) Jocelyn-Quiros <2.6 log INTERPRETIVE Virus, Quant. Log INFORMATIO N: Jocelyn (test code = [place] [address]-2) Quantitative PC RThe quantitative ra nge of [...] of detection by th e assay.Performed by Expert TA,50 0 [place] <truncated> [facility]2022-05-26 08:53:00 Test Item Value Reference Range Interpretation Comments MAGNESIUM (test code = 2840656450) 1.6 mg/dL 1.7-2.4 L Lab Interpretation (test code = Abnormal 21244-1) [facility] METABOLIC PANEL (NA, K, CL, CO2, GLUCOSE, BUN, CREATININE, CA)2021-09-07 08:53:00 Test Item Value Reference Range Interpretation Comments NA (test code = 136 mmol/L 135-145 9118313844) K (test code = 4.6 mmol/L 3.5-5.0 6953228297) CL (test code = 103 mmol/L 98-108 6348641783) CO2 TOTAL (test code 26 mmol/L 23-31 = 7300215271) AGAP (test code = 2-16 8539871188) BUN (test code = 14 mg/dL 7-23 6851840664) GLUCOSE (test code = 100 mg/dL 70-110 2636523635) CREATININE (test code 0.64 mg/dL 0.50-1.04 = 0509143362) CALCIUM (test code = 8.9 mg/dL 8.6-10.6 3591915437) eGFR (test code = mL/min/1.73m2 0092053539) KIM (test code = KIM) Association of [...] or urine or abnormalities in imaging tests). [facility] (90149) (ALB,T.PRO,BILI T,BU/BC,ALT,AST,ALK PHOS)2021-09-07 08:53:00 Test Item Value Reference Range Interpretation Comments TOTAL BILI (test code = 8137099286) 1.2 mg/dL 0.1-1.1 H BILI UNCON (test code = 3412992217) 0.3 mg/dL 0.1-1.1 BILI CONJ (test code = 8234664106) 0.0 mg/dL 0.0-0.3 T PROTEIN (test code = 2775830457) 7.2 g/dL 6.3-8.2 ALBUMIN (test code = 3426738278) 3.9 g/dL 3.5-5.0 ALK PHOS (test code = 5009427132) 449 U/L 34-122 H ALTv (test code = 1742-6) 75 U/L 5-35 H AST(SGOT) (test code = 0342431558) 55 U/L 13-40 H Lab Interpretation (test code = Abnormal 47396-1) [facility] WITH [id number] 08:24:58 Test Item Value Reference Range Interpretation [...] RDW-SD (test code = 45.1 fL 39.0-49.9 09379-4) RDW-CV (test code = 13.2 % 12.0-15.5 788-0) PLT (test code = See_Comment L [Automated 777-3) message] The sy stem which generated this result transmitted reference range : 166 - 358 10*3/ ?L. The reference r luca was not used to interpret this result as normal/abnormal . MPV (test code = 10.0 fL 9.5-12.9 92880-9) NRBC/100 WBC (test See_Comment [Automat ed code = 9093801120) message] The system which generated this result transmitted reference range : 0.0 - 10.0 /100 WBCs. The refer ence range was not u sed to interpret th is result as normal/abnormal . NRBC x10^3 (test code <0.01 See_Comment [Auto mated = 3553232428) message] The s ystem which generated this result transmitted reference range : 10*3/?L. The reference range was not used to interpret this result as normal/abnormal . GRAN MAT (NEUT) % 41.2 % (test code = 770-8) IMM GRAN % (test code 0.30 % = 2807983872) LYMPH % (test code = 45.5 % 736-9) MONO % (test code = 10.0 % 5905-5) EOS % (test code = 2.3 % 713-8) BASO % (test code = 0.7 % 706-2) GRAN MAT x10^3(ANC) 1.24 10*3/uL 1.88-7.09 L (test code = 8345302184) IMM GRAN x10^3 (test <0.03 0.00-0.06 code = 3059220098) LYMPH x10^3 (test code 1.37 10*3/uL 1.32-3.29 = 731-0) MONO x10^3 (test code 0.30 10*3/uL 0.33-0.92 L = 742-7) EOS x10^3 (test code = 0.07 10*3/uL 0.03-0.39 711-2) BASO x10^3 (test code <0.03 0.01-0.07 = 704-7) Lab Interpretation Abnormal (test code = 30060-5) [facility] CenterANTI-NUCLEAR ANTIBODY-PATHOLOGIST [id number] 17:03:59ANA - Pathologist InterpretationANA HEp-2 IIFA Pathologist [...] ? Marnie Mayorga MD ?09/06/2021 ?12:02 PM ?[facility] LABORATORY SERVICESWood[facility]BA[facility] METABOLIC PANEL (NA, K, CL, CO2, GLUCOSE, BUN, CREATININE, CA)2021-09-06 10:30:13 Test Item Value Reference Range Interpretation Comments NA (test code = 137 mmol/L 135-145 6590960974) K (test code = 4.5 mmol/L 3.5-5.0 Slight hemoly sis 6114086458) CL (test code = 105 mmol/L 98-108 8098468281) CO2 TOTAL (test 27 mmol/L 23-31 code = 4735567167) AGAP (test code = 2-16 8641851342) BUN (test code = 15 mg/dL 7-23 Slight hemo lysis 2567696170) GLUCOSE (test code 102 mg/dL 70-110 = 0305521034) CREATININE (test 0.70 mg/dL 0.50-1.04 code = 6478167900) CALCIUM (test code 8.7 mg/dL 8.6-10.6 = 5274953774) eGFR (test code = mL/min/1.73m2 8145417384) KIM (test code = Association of KIM) [...] or urine or abnormalities in imaging tests). [facility] Center[facility] FUNCTION PANEL (41510) (ALB,T.PRO,BILI T,BU/BC,ALT,AST,ALK PHOS)2021-09-06 10:30:13 Test Item Value Reference Range Interpretation Comments TOTAL BILI (test code = 6290697306) 1.3 mg/dL 0.1-1.1 H BILI UNCON (test code = 4499456204) 0.3 mg/dL 0.1-1.1 BILI CONJ (test code = 1516380279) 0.0 mg/dL 0.0-0.3 T PROTEIN (test code = 3385692567) 7.2 g/dL 6.3-8.2 ALBUMIN (test code = 9303478046) 3.9 g/dL 3.5-5.0 ALK PHOS (test code = 9741760950) 447 U/L 34-122 H ALTv (test code = 1742-6) 89 U/L 5-35 H AST(SGOT) (test code = 8169484039) 69 U/L 13-40 H Lab Interpretation (test code = Abnormal 48009-9) [facility]UM2022-05-25 10:30:13 Test Item Value Reference Range Interpretation Comments MAGNESIUM (test code = 0484780796) 1.6 mg/dL 1.7-2.4 L Lab Interpretation (test code = Abnormal 82165-8) [facility] CenterANTI-NUCLEAR ANTIBODY [id number] 01:05:07 Test Item Value Reference Range Interpretation Comments LESLY Titer by IFA >=1:1280 (test code = 8261858148) LESLY Pattern Speckled Cytoplasmic (test code = staining reacti ons 9169606608) observed. KIM (test code = Anti-nuclear KIM) [...] specimen will be held for 7 days. [facility] MUSCLE AB,IGG [id number] 21:57:55 Test Item Value Reference Range Interpretation Comments F-ACTIN (SMOOTH See_Comment If F-Actin (Smooth Muscle) MUSCLE) AB, Antibody, IgG i s negative, IGG(BEAKER) (test the Smooth Muscle Antibody code = 96788-0) titer by IFA is not performed.REFER ENCE [...] for A IH is strong.Performe d By: Expert [address] [place] [address] [id number] Director: Prvaeena Mantilla MD [Automated mess age] The system which ge nerated this result transmit gulshan reference range : 0 - 19 Units. The refe rence range was not used to interpret this result as normal/abnormal . [facility] CenterMITOCHONDRIAL M2 AB, [id number] 21:57:54 Test Item Value Reference Range Interpretation Comments AMA (test code = See_Comment H REFERENCE I NTERVAL: 47058-4) Mitochondrial ( M2) Antibody, IgG ? ?20.0 [...] rule out PBC.Perform ed By: [facility] [address] [place] [address] [id number] Director: Praveena Mantilla MD [Aut omated message] The sy stem which generated this result transmit gulshan reference range : 0.0 - 24.9 Units. The reference range was not used to int erpret this result as normal/abnormal . Lab Interpretation Abnormal (test code = 48448-6) [facility] CenterMAGN[facility]UM2022-05-24 09:23:46 Test Item Value Reference Range Interpretation Comments MAGNESIUM (test code = 7872193397) 1.9 mg/dL 1.7-2.4 Lab Interpretation (test code = Normal 79277-2) [facility] METABOLIC PANEL (NA, K, CL, CO2, GLUCOSE, BUN, CREATININE, CA)2021-09-05 09:23:46 Test Item Value Reference Range Interpretation Comments NA (test code = 140 mmol/L 135-145 8122087114) K (test code = 4.5 mmol/L 3.5-5.0 6918480562) CL (test code = 106 mmol/L 98-108 8871598789) CO2 TOTAL (test code 27 mmol/L 23-31 = 9679377919) AGAP (test code = 2-16 3494304715) BUN (test code = 16 mg/dL 7-23 0085465045) GLUCOSE (test code = 89 mg/dL 70-110 6926459210) CREATININE (test code 0.67 mg/dL 0.50-1.04 = 2242447422) CALCIUM (test code = 9.0 mg/dL 8.6-10.6 8955855810) eGFR (test code = mL/min/1.73m2 5291845824) KIM (test code = KIM) Association of [...] or urine or abnormalities in imaging tests). [facility] PAN[facility] (64749) (ALB,T.PRO,BILI T,BU/BC,ALT,AST,ALK PHOS)2021-09-05 09:23:46 Test Item Value Reference Range Interpretation Comments TOTAL BILI (test code = 9818157260) 1.5 mg/dL 0.1-1.1 H BILI UNCON (test code = 2723336110) 0.3 mg/dL 0.1-1.1 BILI CONJ (test code = 2150025202) 0.0 mg/dL 0.0-0.3 T PROTEIN (test code = 8910738118) 7.1 g/dL 6.3-8.2 ALBUMIN (test code = 6577314247) 3.9 g/dL 3.5-5.0 ALK PHOS (test code = 6048454172) 558 U/L 34-122 H ALTv (test code = 1742-6) 112 U/L 5-35 H AST(SGOT) (test code = 6647068117) 82 U/L 13-40 H Lab Interpretation (test code = Abnormal 43067-7) [facility] WITH [id number] 09:09:07 Test Item Value Reference Range Interpretation [...] RDW-SD (test code = 45.7 fL 39.0-49.9 60385-1) RDW-CV (test code = 13.2 % 12.0-15.5 788-0) PLT (test code = See_Comment L [Automated 777-3) message] The sy stem which generated this result transmitted reference range : 166 - 358 10*3/ ?L. The reference r luca was not used to interpret this result as normal/abnormal . MPV (test code = 9.7 fL 9.5-12.9 05602-9) NRBC/100 WBC (test See_Comment [Automat ed code = [id number]) message] The system which generated this result transmitted reference range : 0.0 - 10.0 /100 WBCs. The refer ence range was not u sed to interpret th is result as normal/abnormal . NRBC x10^3 (test code <0.01 See_Comment [Auto mated = [id number]) message] The s ystem which generated this result transmitted reference range : 10*3/?L. The reference range was not used to interpret this result as normal/abnormal . GRAN MAT (NEUT) % 43.5 % (test code = 770-8) IMM GRAN % (test code 0.30 % = 3700304976) LYMPH % (test code = 39.6 % 736-9) MONO % (test code = 12.8 % 5905-5) EOS % (test code = 3.5 % 713-8) BASO % (test code = 0.3 % 706-2) GRAN MAT x10^3(ANC) 1.25 10*3/uL 1.88-7.09 L (test code = 1303602156) IMM GRAN x10^3 (test <0.03 0.00-0.06 code = [id number]) LYMPH x10^3 (test code 1.14 10*3/uL 1.32-3.29 L = 731-0) MONO x10^3 (test code 0.37 10*3/uL 0.33-0.92 = 742-7) EOS x10^3 (test code = 0.10 10*3/uL 0.03-0.39 711-2) BASO x10^3 (test code <0.03 0.01-0.07 = 704-7) Lab Interpretation Abnormal (test code = 84307-1) [id number] 22:01:12 Test Item Value Reference Range Interpretation Comments LESLY (test code = Cytoplasmic staining Negative A [id number]) observed KIM (test code = KIM) Negative: [...] observed." Lab Interpretation (test Abnormal code = 90836-3) [facility] [id number] 17:58:08 Test Item Value Reference Range Interpretation Comments Specimen Tested Plasma (test code = [id number]) CMV PCR - log <2.5 See_Comment [Automated IU/mL (test message] The code = 56630-9) system which generated this result transmitted reference range : <2.5 log IU/mL. The reference range was not used to interpr et this result as normal/abnormal . CMV PCR - IU/mL <300 See_Comment [Automated (test code = message] The 16016-0) system which generated this result transmitted reference range : <300 IU/mL. The reference range was not used to interpret this result as normal/abnormal . CMV PCR - log <2.7 See_Comment [Automated copies/mL (test message] The code = 42015-3) system which generated this result transmitted reference range : <2.7 log copies/mL. The reference range was not used to interpret this result as normal/abnormal . CMV PCR - <516 See_Comment [Automated copies/mL (test message] The code = 19700-5) system which generated this result transmitted reference [...] This is a laboratory-developed test using a biomaterials engineer labeled ASR (Analyte Specific Reagent) as the reagent providing the specificity of the assay. ?This test was developed and its performance characteristics determined by [facility] Clinical Microbiology Laboratory. It has not been [...] to perform high complexity clinical laboratory testing. [facility] WITH [id number] 10:05:58 Test Item Value Reference Range Interpretation [...] RDW-SD (test code = 45.3 fL 39.0-49.9 96829-3) RDW-CV (test code = 13.1 % 12.0-15.5 788-0) PLT (test code = See_Comment L [Automated 777-3) message] The sy stem which generated this result transmitted reference range : 166 - 358 10*3/ ?L. The reference r luca was not used to interpret this result as normal/abnormal . MPV (test code = 9.8 fL 9.5-12.9 57009-4) NRBC/100 WBC (test See_Comment [Automat ed code = 2530632677) message] The system which generated this result transmitted reference range : 0.0 - 10.0 /100 WBCs. The refer ence range was not u sed to interpret th is result as normal/abnormal . NRBC x10^3 (test code <0.01 See_Comment [Auto mated = 0154869572) message] The s ystem which generated this result transmitted reference range : 10*3/?L. The reference range was not used to interpret this result as normal/abnormal . GRAN MAT (NEUT) % 46.2 % (test code = 770-8) IMM GRAN % (test code 0.30 % = 8440340090) LYMPH % (test code = 36.6 % 736-9) MONO % (test code = 14.2 % 5905-5) EOS % (test code = 2.4 % 713-8) BASO % (test code = 0.3 % 706-2) GRAN MAT x10^3(ANC) 1.36 10*3/uL 1.88-7.09 L (test code = 5003130520) IMM GRAN x10^3 (test <0.03 0.00-0.06 code = 6667320901) LYMPH x10^3 (test code 1.08 10*3/uL 1.32-3.29 L = 731-0) MONO x10^3 (test code 0.42 10*3/uL 0.33-0.92 = 742-7) EOS x10^3 (test code = 0.07 10*3/uL 0.03-0.39 711-2) BASO x10^3 (test code <0.03 0.01-0.07 = 704-7) Lab Interpretation Abnormal (test code = 87836-6) [facility]52 Test Item Value Reference Range Interpretation Comments MAGNESIUM (test code = 1574425811) 2.0 mg/dL 1.7-2.4 Lab Interpretation (test code = Normal 02426-7) [facility] (NA, K, CL, CO2, GLUCOSE, BUN, CREATININE, CA)2021-09-04 09:55:52 Test Item Value Reference Range Interpretation Comments NA (test code = 140 mmol/L 135-145 4010204980) K (test code = 4.2 mmol/L 3.5-5.0 3495104189) CL (test code = 107 mmol/L 98-108 4150975699) CO2 TOTAL (test code 26 mmol/L 23-31 = 3666228566) AGAP (test code = 2-16 8245996205) BUN (test code = 20 mg/dL 7-23 3830254900) GLUCOSE (test code = 106 mg/dL 70-110 5310594289) CREATININE (test code 0.86 mg/dL 0.50-1.04 = 1494007810) CALCIUM (test code = 8.8 mg/dL 8.6-10.6 4953480024) eGFR (test code = mL/min/1.73m2 5666020246) KIM (test code = KIM) Association of [...] or urine or abnormalities in imaging tests). [facility]33950[facility] (ALB,T.PRO,BILI T,BU/BC,ALT,AST,ALK PHOS)2021-09-04 09:55:52 Test Item Value Reference Range Interpretation Comments TOTAL BILI (test code = 1947226288) 1.8 mg/dL 0.1-1.1 H BILI UNCON (test code = 1910659534) 0.6 mg/dL 0.1-1.1 BILI CONJ (test code = 5934894488) 0.0 mg/dL 0.0-0.3 T PROTEIN (test code = 0172837585) 7.1 g/dL 6.3-8.2 ALBUMIN (test code = 9717381195) 3.9 g/dL 3.5-5.0 ALK PHOS (test code = 2655551504) 624 U/L 34-122 H ALTv (test code = 1742-6) 149 U/L 5-35 H AST(SGOT) (test code = 0002005892) 120 U/L 13-40 H Lab Interpretation (test code = Abnormal 52973-9) [facility] WITH [id number] 10:18:25 Test Item Value Reference Range Interpretation [...] RDW-SD (test code = 46.3 fL 39.0-49.9 87853-9) RDW-CV (test code = 13.5 % 12.0-15.5 788-0) PLT (test code = See_Comment L [Automated 777-3) message] The sy stem which generated this result transmitted reference range : 166 - 358 10*3/ ?L. The reference r luca was not used to interpret this result as normal/abnormal . MPV (test code = 9.5 fL 9.5-12.9 14256-3) NRBC/100 WBC (test See_Comment [Automat ed code = 9522311921) message] The system which generated this result transmitted reference range : 0.0 - 10.0 /100 WBCs. The refer ence range was not u sed to interpret th is result as normal/abnormal . NRBC x10^3 (test code <0.01 See_Comment [Auto mated = 0230312235) message] The s ystem which generated this result transmitted reference range : 10*3/?L. The reference range was not used to interpret this result as normal/abnormal . GRAN MAT (NEUT) % 49.9 % (test code = 770-8) IMM GRAN % (test code 0.00 % = 5517335403) LYMPH % (test code = 33.0 % 736-9) MONO % (test code = 14.2 % 5905-5) EOS % (test code = 2.6 % 713-8) BASO % (test code = 0.3 % 706-2) GRAN MAT x10^3(ANC) 1.51 10*3/uL 1.88-7.09 L (test code = 0139478321) IMM GRAN x10^3 (test <0.03 0.00-0.06 code = 5570474860) LYMPH x10^3 (test code 1.00 10*3/uL 1.32-3.29 L = 731-0) MONO x10^3 (test code 0.43 10*3/uL 0.33-0.92 = 742-7) EOS x10^3 (test code = 0.08 10*3/uL 0.03-0.39 711-2) BASO x10^3 (test code <0.03 0.01-0.07 = 704-7) Lab Interpretation Abnormal (test code = 78362-6) [facility]. METABOLIC PANEL (70542)2021-09-03 10:04:46 Test Item Value Reference Range Interpretation Comments NA (test code = 140 mmol/L 135-145 1411246504) K (test code = 4.5 mmol/L 3.5-5.0 7247447153) CL (test code = 107 mmol/L 98-108 7882408671) CO2 TOTAL (test code = 22 mmol/L 23-31 L 3433816428) AGAP (test code = 2-16 1129822999) BUN (test code = 20 mg/dL 7-23 3309429159) GLUCOSE (test code = 84 mg/dL 70-110 7973829809) CREATININE (test code = 0.92 mg/dL 0.50-1.04 5671068874) TOTAL BILI (test code = 2.2 mg/dL 0.1-1.1 H 0542514858) CALCIUM (test code = 8.9 mg/dL 8.6-10.6 6149547705) T PROTEIN (test code = 7.4 g/dL 6.3-8.2 4951893914) ALBUMIN (test code = 4.1 g/dL 3.5-5.0 0967128278) ALK PHOS (test code = 658 U/L 34-122 H 2243510262) ALTv (test code = 169 U/L 5-35 H 1742-6) AST(SGOT) (test code = 163 U/L 13-40 H 3596789424) eGFR (test code = mL/min/1.73m2 8830826239) KIM (test code = KIM) Association of [...] tests). Lab Interpretation Abnormal (test code = 65984-8) [facility] 10:04:46 Test Item Value Reference Range Interpretation Comments MAGNESIUM (test code = 0826876217) 2.0 mg/dL 1.7-2.4 Lab Interpretation (test code = Normal 86851-0) [facility]ALPHA 1 [id number] 19:24:55 Test Item Value Reference Range Interpretation Comments Anti-Trypsin (test code = 174 mg/dL 83-199 9831795130) Lab Interpretation (test code = Normal 17532-0) [facility]CERULOPLASMIN2022-05-21 19:24:50 Test Item Value Reference Range Interpretation Comments CERULO (test code = 6018179739) 48 mg/dL 25-63 Lab Interpretation (test code = Normal 22802-8) [facility] CenterIMMUNOGLOBULIN [id number] 19:24:45 Test Item Value Reference Range Interpretation Comments IgG (test code = 2043001180) 1210 mg/dL 636-1600 Lab Interpretation (test code = Normal 62291-3) [facility]TIBODY (IGG AND IGM)2021-09-02 18:39:52 Test Item Value Reference Range Interpretation Comments HAV Total (test code Positive = 7504899263) HAVT Semi-Quantitative (test code = 3810386526) KIM (test code = KIM) Indicates past or present infection with HAV or exposure to HAV due to vaccination. [facility] CenterFERRITIN [id number] 18:15:24 Test Item Value Reference Range Interpretation Comments FERRITIN (test code = 63.8 ng/mL 11.0-264.0 8005271745) KIM (test code = KIM) Biotin has been reported to cause a negative bias, interpret results relative to patient's use of biotin. Lab Interpretation (test Normal code = 73332-1) [facility] CenterHEPATITIS B SURFACE [id number] 18:11:43 Test Item Value Reference Range Interpretation Comments HBsAg Semi-Quantitative (test code = Negative Negative 5195-3) [facility] [id number] 17:43:23 Test Item Value Reference Range Interpretation Comments HBsAB (test code = Negative 4114419525) HBsAb mIU/mL Semi-Quantitative (test code = 0869010164) KIM (test code = Interpretation: KIM) ?Hepatitis B Surface Antibody ? Negative - Patient is considered to be not immune to infection with HBV. ? ? Positive - Anti-HBs detected at greater than or equal to 12 mIU/mL. ?Patient is considered to be immune to infection with HBV. ? [facility] CenterHBC ANTIBODY (IGM & IGG)2021-09-02 17:43:23 Test Item Value Reference Range Interpretation Comments HBC (test code = 7419248355) Negative HBC Semi-Quantitative (test code = 3782183178) [facility] CenterHCV [id number] 17:43:23 Test Item Value Reference Range Interpretation Comments HCV Ab (test code = 14745-6) Negative HCV Semi-Quantitative (test code = 15209-9) [facility]2022-[facility]-21 17:40:42 Test Item Value Reference Range Interpretation Comments MAGNESIUM (test code = 0820025068) 1.9 mg/dL 1.7-2.4 Lab Interpretation (test code = Normal 94376-4) [facility] CenterPHOSPHORUS2022-05-21 17:40:42 Test Item Value Reference Range Interpretation Comments PHOSPHORUS (test code = 3242149455) 4.0 mg/dL 2.5-5.0 Lab Interpretation (test code = Normal 70493-3) [facility]. METABOLIC PANEL (13965)2021-09-02 17:40:42 Test Item Value Reference Range Interpretation Comments NA (test code = 138 mmol/L 135-145 8622394332) K (test code = 4.2 mmol/L 3.5-5.0 4921400987) CL (test code = 106 mmol/L 98-108 9068317613) CO2 TOTAL (test code = 24 mmol/L 23-31 0279099013) AGAP (test code = 2-16 1173266976) BUN (test code = 14 mg/dL 7-23 3050072980) GLUCOSE (test code = 88 mg/dL 70-110 8517553720) CREATININE (test code = 0.60 mg/dL 0.50-1.04 0984455020) TOTAL BILI (test code = 2.1 mg/dL 0.1-1.1 H 6716886048) CALCIUM (test code = 8.8 mg/dL 8.6-10.6 9685540227) T PROTEIN (test code = 7.3 g/dL 6.3-8.2 1818420306) ALBUMIN (test code = 4.0 g/dL 3.5-5.0 8008047821) ALK PHOS (test code = 659 U/L 34-122 H 8600685134) ALTv (test code = 183 U/L 5-35 H 1742-6) AST(SGOT) (test code = 167 U/L 13-40 H 4290508525) eGFR (test code = mL/min/1.73m2 8803780170) KIM (test code = KIM) Association of [...] tests). Lab Interpretation Abnormal (test code = 09303-9) [facility] CenterACETAMINOPHEN2022-05-21 16:56:49 Test Item Value Reference Range Interpretation Comments ACETAMINOP (test code = <10.0 10.0-30.0 L 6140922993) KIM (test code = KIM) Toxic: Greater than 200 ug/mL @ 4 hour post ingestion or greater than 50 ug/mL @ 12 hour post ingestion Lab Interpretation (test Abnormal code = 32419-6) [facility] WITH [id number] 16:41:43 Test Item Value Reference Range Interpretation Comments WBC (test code = See_Comment L [Automated 2580-2) message] The sy stem which generated this result transmitted reference range : 4.30 - 11.10 10*3/?L. The reference range was not used to interpret this result as normal/abnormal . RBC (test code = See_Comment L [Automated 719-8) message] The sy stem which generated this [...] RDW-SD (test code = 47.5 fL 39.0-49.9 98760-2) RDW-CV (test code = 13.9 % 12.0-15.5 788-0) PLT (test code = See_Comment L [Automated 777-3) message] The sy stem which generated this result transmitted reference range : 166 - 358 10*3/ ?L. The reference r luca was not used to interpret this result as normal/abnormal . MPV (test code = 9.9 fL 9.5-12.9 14833-7) NRBC/100 WBC (test See_Comment [Automat ed code = 7986585737) message] The system which generated this result transmitted reference range : 0.0 - 10.0 /100 WBCs. The refer ence range was not u sed to interpret th is result as normal/abnormal . NRBC x10^3 (test code <0.01 See_Comment [Auto mated = 3902441483) message] The s ystem which generated this result transmitted reference range : 10*3/?L. The reference range was not used to interpret this result as normal/abnormal . GRAN MAT (NEUT) % 47.4 % (test code = 770-8) IMM GRAN % (test code 0.30 % = 7830070338) LYMPH % (test code = 37.4 % 736-9) MONO % (test code = 12.1 % 5905-5) EOS % (test code = 2.5 % 713-8) BASO % (test code = 0.3 % 706-2) GRAN MAT x10^3(ANC) 1.52 10*3/uL 1.88-7.09 L (test code = 1977456424) IMM GRAN x10^3 (test <0.03 0.00-0.06 code = 1586022511) LYMPH x10^3 (test code 1.20 10*3/uL 1.32-3.29 L = 731-0) MONO x10^3 (test code 0.39 10*3/uL 0.33-0.92 = 742-7) EOS x10^3 (test code = 0.08 10*3/uL 0.03-0.39 711-2) BASO x10^3 (test code <0.03 0.01-0.07 = 704-7) Lab Interpretation Abnormal (test code = 94079-5) [facility] CenterProthrombin Time (PTT) / [id number] 15:58:16 Test Item Value Reference Range Interpretation [...] tions. Lab Interpretation (test Normal code = 01407-7) [facility] CenterTROPONIN [id number] 19:18:37 Test Item Value Reference Interpretation Comments Range TROPONIN I (test 0.004 ng/mL See_Comment [Automated code = 7536190549) message] The system which generated this result [...] biotin. Lab Interpretation Normal (test code = 33231-8) [facility]. METABOLIC PANEL (18787)2021-09-01 19:07:17 Test Item Value Reference Range Interpretation Comments NA (test code = 139 mmol/L 135-145 9890193338) K (test code = 4.5 mmol/L 3.5-5.0 7789056988) CL (test code = 104 mmol/L 98-108 3311340747) CO2 TOTAL (test code = 21 mmol/L 23-31 L 9808480346) AGAP (test code = 2-16 4004324824) BUN (test code = 17 mg/dL 7-23 5276414856) GLUCOSE (test code = 90 mg/dL 70-110 2371398215) CREATININE (test code = 0.63 mg/dL 0.50-1.04 1730158610) TOTAL BILI (test code = 1.6 mg/dL 0.1-1.1 H 1505906118) CALCIUM (test code = 9.5 mg/dL 8.6-10.6 8076276645) T PROTEIN (test code = 9.0 g/dL 6.3-8.2 H 9503018701) ALBUMIN (test code = 4.9 g/dL 3.5-5.0 1178164315) ALK PHOS (test code = 820 U/L 34-122 H 4842169275) ALTv (test code = 238 U/L 5-35 H 1742-6) AST(SGOT) (test code = 256 U/L 13-40 H 3227485227) eGFR (test code = mL/min/1.73m2 8124824147) KIM (test code = KIM) Association of [...] tests). Lab Interpretation Abnormal (test code = 66276-4) [facility]2022-[facility]-20 19:07:17 Test Item Value Reference Range Interpretation Comments MAGNESIUM (test code = 3634577566) 1.8 mg/dL 1.7-2.4 Lab Interpretation (test code = Normal 70053-1) [facility] CenterLIPASE2022-[facility] 19:06:57 Test Item Value Reference Range Interpretation Comments LIPASE (test code = 3152552070) 85 U/L 0-220 Lab Interpretation (test code = Normal 73984-1) [facility] CenterCB WITH [id number] 18:56:38 Test Item Value Reference Range Interpretation Comments WBC (test code = See_Comment [Automated 7190-2) message] The sy stem which generated this result transmitted reference range : 4.30 - 11.10 10*3/?L. The reference range was not used to interpret this result as normal/abnormal . RBC (test code = See_Comment [Automated 326-8) message] The sy stem which generated this [...] RDW-SD (test code = 48.2 fL 39.0-49.9 06824-9) RDW-CV (test code = 14.1 % 12.0-15.5 788-0) PLT (test code = See_Comment [Automated 777-3) message] The sy stem which generated this result transmitted reference range : 166 - 358 10*3/ ?L. The reference r luca was not used to interpret this result as normal/abnormal . MPV (test code = 9.9 fL 9.5-12.9 14399-8) NRBC/100 WBC (test See_Comment [Automat ed code = 9166100545) message] The system which generated this result transmitted reference range : 0.0 - 10.0 /100 WBCs. The refer ence range was not u sed to interpret th is result as normal/abnormal . NRBC x10^3 (test code <0.01 See_Comment [Auto mated = 7778605435) message] The s ystem which generated this result transmitted reference range : 10*3/?L. The reference range was not used to interpret this result as normal/abnormal . GRAN MAT (NEUT) % 65.1 % (test code = 770-8) IMM GRAN % (test code 0.40 % = 1169407757) LYMPH % (test code = 21.5 % 736-9) MONO % (test code = 11.0 % 5905-5) EOS % (test code = 1.6 % 713-8) BASO % (test code = 0.4 % 706-2) GRAN MAT x10^3(ANC) 3.33 10*3/uL 1.88-7.09 (test code = 5259739756) IMM GRAN x10^3 (test <0.03 0.00-0.06 code = 4796308961) LYMPH x10^3 (test code 1.10 10*3/uL 1.32-3.29 L = 731-0) MONO x10^3 (test code 0.56 10*3/uL 0.33-0.92 = 742-7) EOS x10^3 (test code = 0.08 10*3/uL 0.03-0.39 711-2) BASO x10^3 (test code <0.03 0.01-0.07 = 704-7) Lab Interpretation Abnormal (test code = 23348-9) [facility]TR[facility]IN [id number] 16:53:34 Test Item Value Reference Interpretation Comments Range TROPONIN I (test 0.003 ng/mL See_Comment [Automated code = 3565377605) message] The system which generated this result [...] biotin. Lab Interpretation Normal (test code = 33831-5) [facility] CenterCOMP. METABOLIC PANEL (30354)2021-08-27 16:42:16 Test Item Value Reference Range Interpretation Comments NA (test code = 139 mmol/L 135-145 6114202381) K (test code = 4.2 mmol/L 3.5-5.0 9697591436) CL (test code = 104 mmol/L 98-108 3219079092) CO2 TOTAL (test code = 23 mmol/L 23-31 3982246149) AGAP (test code = 2-16 6439698330) BUN (test code = 12 mg/dL 7-23 8353080100) GLUCOSE (test code = 91 mg/dL 70-110 9345292313) CREATININE (test code = 0.52 mg/dL 0.50-1.04 7221910330) TOTAL BILI (test code = 1.2 mg/dL 0.1-1.1 H 6071572576) CALCIUM (test code = 9.1 mg/dL 8.6-10.6 3616742745) T PROTEIN (test code = 7.7 g/dL 6.3-8.2 9172744937) ALBUMIN (test code = 4.3 g/dL 3.5-5.0 2563399926) ALK PHOS (test code = 530 U/L 34-122 H 6827494522) ALTv (test code = 84 U/L 5-35 H 1742-6) AST(SGOT) (test code = 93 U/L 13-40 H 8794992019) eGFR (test code = mL/min/1.73m2 1153986121) KIM (test code = KIM) Association of [...] tests). Lab Interpretation Abnormal (test code = 12298-0) [facility] 16:41:56 Test Item Value Reference Range Interpretation Comments LIPASE (test code = 6066359024) 67 U/L 0-220 Lab Interpretation (test code = Normal 73209-3) [facility] WITH [id number] 16:30:44 Test Item Value Reference Range Interpretation [...] RDW-SD (test code = 49.4 fL 39.0-49.9 31029-1) RDW-CV (test code = 14.4 % 12.0-15.5 788-0) PLT (test code = See_Comment L [Automated 777-3) message] The sy stem which generated this result transmitted reference range : 166 - 358 10*3/ ?L. The reference r luca was not used to interpret this result as normal/abnormal . MPV (test code = 10.1 fL 9.5-12.9 11280-9) IPF % (test code = 2.6 % 1.3-7.7 Platelet count 2073708316) measured by fluorescence method. NRBC/100 WBC (test See_Comment [Automat ed code = 1509161030) message] The system which generated this result transmitted reference range : 0.0 - 10.0 /100 WBCs. The refer ence range was not u sed to interpret th is result as normal/abnormal . NRBC x10^3 (test code <0.01 See_Comment [Auto mated = 4301172137) message] The s ystem which generated this result transmitted reference range : 10*3/?L. The reference range was not used to interpret this result as normal/abnormal . GRAN MAT (NEUT) % 70.3 % (test code = 770-8) IMM GRAN % (test code 0.20 % = 3381559991) LYMPH % (test code = 21.3 % 736-9) MONO % (test code = 6.9 % 5905-5) EOS % (test code = 1.1 % 713-8) BASO % (test code = 0.2 % 706-2) GRAN MAT x10^3(ANC) 3.14 10*3/uL 1.88-7.09 (test code = 3138657461) IMM GRAN x10^3 (test <0.03 0.00-0.06 code = 3687070789) LYMPH x10^3 (test code 0.95 10*3/uL 1.32-3.29 L = 731-0) MONO x10^3 (test code 0.31 10*3/uL 0.33-0.92 L = 742-7) EOS x10^3 (test code = 0.05 10*3/uL 0.03-0.39 711-2) BASO x10^3 (test code <0.03 0.01-0.07 = 704-7) Lab Interpretation Abnormal (test code = 06073-4) [facility] GLUCOSE (AUTOMATED)2021-07-28 22:32:51 Test Item Value Reference Range Interpretation Comments POCT GLU (test code = 5750142063) 94 mg/dL 70-110 Lab Interpretation (test code = Normal 81006-7) [facility] GLUCOSE (AUTOMATED)2021-07-28 16:56:05 Test Item Value Reference Range Interpretation Comments POCT GLU (test code = 1738079186) 107 mg/dL 70-110 Lab Interpretation (test code = Normal 10549-1) [facility] GLUCOSE (AUTOMATED)2021-07-28 13:01:41 Test Item Value Reference Range Interpretation Comments POCT GLU (test code = 9005760885) 104 mg/dL 70-110 Lab Interpretation (test code = Normal 24749-5) [facility]. METABOLIC PANEL (71514)2021-07-28 11:55:38 Test Item Value Reference Range Interpretation Comments NA (test code = 140 mmol/L 135-145 4763834613) K (test code = 3.6 mmol/L 3.5-5.0 7251692958) CL (test code = 108 mmol/L 98-108 8705270622) CO2 TOTAL (test code = 27 mmol/L 23-31 1632021535) AGAP (test code = 2-16 0395148830) BUN (test code = 3 mg/dL 7-23 L 9349895941) GLUCOSE (test code = 93 mg/dL 70-110 3679319495) CREATININE (test code = 0.49 mg/dL 0.50-1.04 L 4015153901) TOTAL BILI (test code = 1.0 mg/dL 0.1-1.0 3706743382) CALCIUM (test code = 8.3 mg/dL 8.6-10.6 L 4166918919) T PROTEIN (test code = 6.5 g/dL 6.3-8.2 0268378145) ALBUMIN (test code = 3.6 g/dL 3.5-5.0 4159784178) ALK PHOS (test code = 431 U/L 34-122 H 1828295778) ALTv (test code = 80 U/L 5-35 H 1742-6) AST(SGOT) (test code = 74 U/L 13-40 H 8475500146) eGFR (test code = mL/min/1.73m2 1188176072) KIM (test code = KIM) Association of [...] tests). Lab Interpretation Abnormal (test code = 68696-8) [facility] 11:55:38 Test Item Value Reference Range Interpretation Comments LIPASE (test code = 5842927427) 74 U/L 0-220 Lab Interpretation (test code = Normal 01656-7) [facility] WITH [id number] 10:40:07 Test Item Value Reference Range Interpretation [...] RDW-SD (test code = 49.7 fL 39.0-49.9 58677-7) RDW-CV (test code = 14.3 % 12.0-15.5 788-0) PLT (test code = See_Comment L [Automated 777-3) message] The sy stem which generated this result transmitted reference range : 166 - 358 10*3/ ?L. The reference r luca was not used to interpret this result as normal/abnormal . MPV (test code = 9.3 fL 9.5-12.9 L 66937-8) NRBC/100 WBC (test See_Comment [Automat ed code = 5034702910) message] The system which generated this result transmitted reference range : 0.0 - 10.0 /100 WBCs. The refer ence range was not u sed to interpret th is result as normal/abnormal . NRBC x10^3 (test code <0.01 See_Comment [Auto mated = 5856940129) message] The s ystem which generated this result transmitted reference range : 10*3/?L. The reference range was not used to interpret this result as normal/abnormal . GRAN MAT (NEUT) % 49.4 % (test code = 770-8) IMM GRAN % (test code 0.00 % = [id number]) LYMPH % (test code = 38.0 % 736-9) MONO % (test code = 10.0 % 5905-5) EOS % (test code = 2.2 % 713-8) BASO % (test code = 0.4 % 706-2) GRAN MAT x10^3(ANC) 1.34 10*3/uL 1.88-7.09 L (test code = [id number]) IMM GRAN x10^3 (test <0.03 0.00-0.06 code = [id number]) LYMPH x10^3 (test code 1.03 10*3/uL 1.32-3.29 L = 731-0) MONO x10^3 (test code 0.27 10*3/uL 0.33-0.92 L = 742-7) EOS x10^3 (test code = 0.06 10*3/uL 0.03-0.39 711-2) BASO x10^3 (test code <0.03 0.01-0.07 = 704-7) Lab Interpretation Abnormal (test code = 38960-9) [facility] GLUCOSE (AUTOMATED)2021-07-28 09:10:56 Test Item Value Reference Range Interpretation Comments POCT GLU (test code = [id number]) 80 mg/dL 70-110 Lab Interpretation (test code = Normal 61369-3) [facility] [facility] 04:43:28 Test Item Value Reference Range Interpretation Comments POCT GLU (test code = 8749215799) 115 mg/dL 70-110 H Lab Interpretation (test code = Abnormal 96657-6) [facility] GLUCOSE (AUTOMATED)2021-07-28 01:22:31 Test Item Value Reference Range Interpretation Comments POCT GLU (test code = 1338963792) 94 mg/dL 70-110 Lab Interpretation (test code = Normal 48513-8) [facility] GLUCOSE (AUTOMATED)2021-07-27 21:50:22 Test Item Value Reference Range Interpretation Comments POCT GLU (test code = 2435038308) 108 mg/dL 70-110 Lab Interpretation (test code = Normal 22696-0) [facility] GLUCOSE (AUTOMATED)2021-07-27 17:02:26 Test Item Value Reference Range Interpretation Comments POCT GLU (test code = 6339538336) 102 mg/dL 70-110 Lab Interpretation (test code = Normal 91514-0) [facility] GLUCOSE (AUTOMATED)2021-07-27 12:47:28 Test Item Value Reference Range Interpretation Comments POCT GLU (test code = 0557656121) 106 mg/dL 70-110 Lab Interpretation (test code = Normal 89326-8) [facility] WITH [id number] 12:34:02 Test Item Value Reference Range Interpretation Comments WBC (test code = See_Comment L [Automated 6690-2) message] The sy stem which generated this result transmitted reference range : 4.30 - 11.10 10*3/?L. The reference range was not used to interpret this result as normal/abnormal . RBC (test code = See_Comment L [Automated 9-8) message] The sy stem which [...] RDW-SD (test code = 47.6 fL 39.0-49.9 21467-9) RDW-CV (test code = 14.0 % 12.0-15.5 788-0) PLT (test code = See_Comment L [Automated 777-3) message] The sy stem which generated this result transmitted reference range : 166 - 358 10*3/ ?L. The reference r luca was not used to interpret this result as normal/abnormal . MPV (test code = 9.5 fL 9.5-12.9 07258-6) NRBC/100 WBC (test See_Comment [Automat ed code = 4212078528) message] The system which generated this result transmitted reference range : 0.0 - 10.0 /100 WBCs. The refer ence range was not u sed to interpret th is result as normal/abnormal . NRBC x10^3 (test code <0.01 See_Comment [Auto mated = 3636483263) message] The s ystem which generated this result transmitted reference range : 10*3/?L. The reference range was not used to interpret this result as normal/abnormal . GRAN MAT (NEUT) % 56.3 % (test code = 770-8) IMM GRAN % (test code 0.80 % = 1935203762) LYMPH % (test code = 33.5 % 736-9) MONO % (test code = 8.6 % 5905-5) EOS % (test code = 0.4 % 713-8) BASO % (test code = 0.4 % 706-2) GRAN MAT x10^3(ANC) 1.50 10*3/uL 1.88-7.09 L (test code = 3028380516) IMM GRAN x10^3 (test <0.03 0.00-0.06 code = 9924723467) LYMPH x10^3 (test code 0.89 10*3/uL 1.32-3.29 L = 731-0) MONO x10^3 (test code 0.23 10*3/uL 0.33-0.92 L = 742-7) EOS x10^3 (test code = <0.03 0.03-0.39 L 711-2) BASO x10^3 (test code <0.03 0.01-0.07 = 704-7) Lab Interpretation Abnormal (test code = 04424-2) [facility] Test Item Value Reference Range Interpretation Comments MAGNESIUM (test code = 2220769744) 2.0 mg/dL 1.7-2.4 Lab Interpretation (test code = Normal 39285-1) [facility] (NA, K, CL, CO2, GLUCOSE, BUN, CREATININE, CA)2021-07-27 11:06:32 Test Item Value Reference Range Interpretation Comments NA (test code = 141 mmol/L 135-145 2898122263) K (test code = 3.8 mmol/L 3.5-5.0 5046129398) CL (test code = 107 mmol/L 98-108 7303776960) CO2 TOTAL (test code = 25 mmol/L 23-31 0102181031) AGAP (test code = 2-16 7321370670) BUN (test code = 6 mg/dL 7-23 L 6619128072) GLUCOSE (test code = 100 mg/dL 70-110 2954328847) CREATININE (test code = 0.46 mg/dL 0.50-1.04 L 3693352193) CALCIUM (test code = 8.6 mg/dL 8.6-10.6 2303603860) eGFR (test code = mL/min/1.73m2 7846750611) KIM (test code = KIM) Association of [...] tests). Lab Interpretation Abnormal (test code = 67687-2) [facility] GLUCOSE (AUTOMATED)2021-07-27 08:58:50 Test Item Value Reference Range Interpretation Comments POCT GLU (test code = 6297563671) 95 mg/dL 70-110 Lab Interpretation (test code = Normal 51209-4) [facility] GLUCOSE (AUTOMATED)2021-07-27 06:51:37 Test Item Value Reference Range Interpretation Comments POCT GLU (test code = 4705873151) 146 mg/dL 70-110 H Lab Interpretation (test code = Abnormal 55322-3) [facility] GLUCOSE (AUTOMATED)2021-07-27 01:52:10 Test Item Value Reference Range Interpretation Comments POCT GLU (test code = 1244798841) 111 mg/dL 70-110 H Lab Interpretation (test code = Abnormal 52996-9) [facility] Test Item Value Reference Range Interpretation Comments MAGNESIUM (test code = 9855219540) 1.5 mg/dL 1.7-2.4 L Lab Interpretation (test code = Abnormal 58843-5) [facility] GLUCOSE (AUTOMATED)2021-07-26 22:04:12 Test Item Value Reference Range Interpretation Comments POCT GLU (test code = 4658050998) 106 mg/dL 70-110 Lab Interpretation (test code = Normal 88801-5) [facility] GLUCOSE (AUTOMATED)2021-07-26 16:59:07 Test Item Value Reference Range Interpretation Comments POCT GLU (test code = 4463562758) 80 mg/dL 70-110 Lab Interpretation (test code = Normal 61034-0) [facility] METABOLIC PANEL (NA, K, CL, CO2, GLUCOSE, BUN, CREATININE, CA)2021-07-26 12:05:38 Test Item Value Reference Range Interpretation Comments NA (test code = 137 mmol/L 135-145 9125719835) K (test code = 3.9 mmol/L 3.5-5.0 6485413079) CL (test code = 104 mmol/L 98-108 1580215872) CO2 TOTAL (test code = 25 mmol/L 23-31 8656770240) AGAP (test code = 2-16 2711375397) BUN (test code = 8 mg/dL 7-23 6333907988) GLUCOSE (test code = 100 mg/dL 70-110 5411178401) CREATININE (test code = 0.45 mg/dL 0.50-1.04 L 6809005105) CALCIUM (test code = 8.7 mg/dL 8.6-10.6 0410154550) eGFR (test code = mL/min/1.73m2 9706853930) KIM (test code = KIM) Association of [...] tests). Lab Interpretation Abnormal (test code = 85264-4) [facility] 12:04:57 Test Item Value Reference Range Interpretation Comments LIPASE (test code = 3077669141) 58 U/L 0-220 Lab Interpretation (test code = Normal 31127-2) [facility] WITH [id number] 10:22:45 Test Item Value Reference Range Interpretation [...] RDW-SD (test code = 45.4 fL 39.0-49.9 94751-4) RDW-CV (test code = 13.7 % 12.0-15.5 788-0) PLT (test code = See_Comment L [Automated 777-3) message] The sy stem which generated this result transmitted reference range : 166 - 358 10*3/ ?L. The reference r luca was not used to interpret this result as normal/abnormal . MPV (test code = 9.4 fL 9.5-12.9 L 18039-6) NRBC/100 WBC (test See_Comment [Automat ed code = 9851842802) message] The system which generated this result transmitted reference range : 0.0 - 10.0 /100 WBCs. The refer ence range was not u sed to interpret th is result as normal/abnormal . NRBC x10^3 (test code <0.01 See_Comment [Auto mated = 8610690210) message] The s ystem which generated this result transmitted reference range : 10*3/?L. The reference range was not used to interpret this result as normal/abnormal . GRAN MAT (NEUT) % 67.8 % (test code = 770-8) IMM GRAN % (test code 0.60 % = 2557354747) LYMPH % (test code = 24.4 % 736-9) MONO % (test code = 6.6 % 5905-5) EOS % (test code = 0.3 % 713-8) BASO % (test code = 0.3 % 706-2) GRAN MAT x10^3(ANC) 2.25 10*3/uL 1.88-7.09 (test code = 7474844944) IMM GRAN x10^3 (test <0.03 0.00-0.06 code = 6326295518) LYMPH x10^3 (test code 0.81 10*3/uL 1.32-3.29 L = 731-0) MONO x10^3 (test code 0.22 10*3/uL 0.33-0.92 L = 742-7) EOS x10^3 (test code = <0.03 0.03-0.39 L 711-2) BASO x10^3 (test code <0.03 0.01-0.07 = 704-7) Lab Interpretation Abnormal (test code = 48945-0) [facility]31264[facility] (ALB,T.PRO,BILI T,BU/BC,ALT,AST,ALK PHOS)2021-07-25 16:47:05 Test Item Value Reference Range Interpretation Comments TOTAL BILI (test code = 5249452435) 1.1 mg/dL 0.1-1.1 BILI UNCON (test code = 1061290257) 0.4 mg/dL 0.1-1.1 BILI CONJ (test code = 3259812818) 0.0 mg/dL 0.0-0.3 T PROTEIN (test code = 0830778304) 4.0 g/dL 6.3-8.2 L ALBUMIN (test code = 6743486121) 1.9 g/dL 3.5-5.0 L ALK PHOS (test code = 7634418775) 229 U/L 34-122 H ALTv (test code = 1742-6) 59 U/L 5-35 H AST(SGOT) (test code = 0232121675) 68 U/L 13-40 H Lab Interpretation (test code = Abnormal 29929-3) [facility]21-[facility]-25 14:21:54 Test Item Value Reference Range Interpretation Comments POCT GLU (test code = 6740291154) 113 mg/dL 70-110 H Lab Interpretation (test code = Abnormal 90434-2) [facility] (NA, K, CL, CO2, GLUCOSE, BUN, CREATININE, CA)2021-07-25 14:06:58 Test Item Value Reference Range Interpretation Comments NA (test code = 132 mmol/L 135-145 L 3920542963) K (test code = 4.1 mmol/L 3.5-5.0 1809428976) CL (test code = 110 mmol/L 98-108 H 2942376605) CO2 TOTAL (test code = 13 mmol/L 23-31 L 3488109314) AGAP (test code = 2-16 1041407165) BUN (test code = 4 mg/dL 7-23 L 5030160461) GLUCOSE (test code = 48 mg/dL 70-110 LL 9983516348) CREATININE (test code = 0.21 mg/dL 0.50-1.04 L 8158708645) CALCIUM (test code = 6.4 mg/dL 8.6-10.6 L 3113619322) eGFR (test code = mL/min/1.73m2 7101465992) KIM (test code = KIM) Association of [...] tests). Lab Interpretation Abnormal (test code = 11895-4) [facility] WITH [id number] 14:04:42 Test Item Value Reference Range Interpretation [...] RDW-SD (test code = 46.7 fL 39.0-49.9 25524-8) RDW-CV (test code = 13.6 % 12.0-15.5 788-0) PLT (test code = See_Comment L [Automated 777-3) message] The sy stem which generated this result transmitted reference range : 166 - 358 10*3/ ?L. The reference r luca was not used to interpret this result as normal/abnormal . MPV (test code = 10.8 fL 9.5-12.9 18356-4) NRBC/100 WBC (test See_Comment [Automat ed code = 3978901273) message] The system which generated this result transmitted reference range : 0.0 - 10.0 /100 WBCs. The refer ence range was not u sed to interpret th is result as normal/abnormal . NRBC x10^3 (test code <0.01 See_Comment [Auto mated = 5894723964) message] The s ystem which generated this result transmitted reference range : 10*3/?L. The reference range was not used to interpret this result as normal/abnormal . GRAN MAT (NEUT) % 53.2 % (test code = 770-8) IMM GRAN % (test code 0.40 % = 1637335984) LYMPH % (test code = 34.3 % 736-9) MONO % (test code = 10.0 % 5905-5) EOS % (test code = 1.7 % 713-8) BASO % (test code = 0.4 % 706-2) GRAN MAT x10^3(ANC) 1.27 10*3/uL 1.88-7.09 L (test code = 2911743327) IMM GRAN x10^3 (test <0.03 0.00-0.06 code = 1446581170) LYMPH x10^3 (test code 0.82 10*3/uL 1.32-3.29 L = 731-0) MONO x10^3 (test code 0.24 10*3/uL 0.33-0.92 L = 742-7) EOS x10^3 (test code = 0.04 10*3/uL 0.03-0.39 711-2) BASO x10^3 (test code <0.03 0.01-0.07 = 704-7) Lab Interpretation Abnormal (test code = 15713-3) [facility] CenterMagnesium [id number] 11:34:51 Test Item Value Reference Range Interpretation Comments MAGNESIUM (test code = 3586328199) 1.6 mg/dL 1.7-2.4 L Lab Interpretation (test code = Abnormal 63304-2) [facility] (NA, K, CL, CO2, GLUCOSE, BUN, CREATININE, CA)2021-07-24 11:34:31 Test Item Value Reference Range Interpretation Comments NA (test code = 137 mmol/L 135-145 8230295377) K (test code = 4.4 mmol/L 3.5-5.0 6027289975) CL (test code = 106 mmol/L 98-108 0788985599) CO2 TOTAL (test code 23 mmol/L 23-31 = 3753245462) AGAP (test code = 2-16 9269887575) BUN (test code = 14 mg/dL 7-23 0766244930) GLUCOSE (test code = 84 mg/dL 70-110 0891350237) CREATININE (test code 0.54 mg/dL 0.50-1.04 = 8868379007) CALCIUM (test code = 8.7 mg/dL 8.6-10.6 6033176788) eGFR (test code = mL/min/1.73m2 2376037411) KIM (test code = KIM) Association of [...] or urine or abnormalities in imaging tests). [facility]28174[facility] (ALB,T.PRO,BILI T,BU/BC,ALT,AST,ALK PHOS)2021-07-24 11:34:31 Test Item Value Reference Range Interpretation Comments TOTAL BILI (test code = 5529578323) 1.9 mg/dL 0.1-1.1 H BILI UNCON (test code = 2037132403) 0.8 mg/dL 0.1-1.1 BILI CONJ (test code = 1915843330) 0.0 mg/dL 0.0-0.3 T PROTEIN (test code = 0898998522) 8.0 g/dL 6.3-8.2 ALBUMIN (test code = 4158566793) 4.3 g/dL 3.5-5.0 ALK PHOS (test code = 9342596919) 512 U/L 34-122 H ALTv (test code = 1742-6) 111 U/L 5-35 H AST(SGOT) (test code = 5990448446) 107 U/L 13-40 H Lab Interpretation (test code = Abnormal 37632-8) [facility] with [id number] 10:17:09 Test Item Value Reference Range Interpretation [...] RDW-SD (test code = 47.5 fL 39.0-49.9 02671-6) RDW-CV (test code = 13.9 % 12.0-15.5 788-0) PLT (test code = See_Comment L [Automated 777-3) message] The sy stem which generated this result transmitted reference range : 166 - 358 10*3/ ?L. The reference r luca was not used to interpret this result as normal/abnormal . MPV (test code = 11.2 fL 9.5-12.9 17628-9) NRBC/100 WBC (test See_Comment [Automat ed code = 2578250243) message] The system which generated this result transmitted reference range : 0.0 - 10.0 /100 WBCs. The refer ence range was not u sed to interpret th is result as normal/abnormal . NRBC x10^3 (test code <0.01 See_Comment [Auto mated = 7928082386) message] The s ystem which generated this result transmitted reference range : 10*3/?L. The reference range was not used to interpret this result as normal/abnormal . GRAN MAT (NEUT) % 49.4 % (test code = 770-8) IMM GRAN % (test code 0.30 % = 7961501191) LYMPH % (test code = 39.2 % 736-9) MONO % (test code = 8.5 % 5905-5) EOS % (test code = 2.3 % 713-8) BASO % (test code = 0.3 % 706-2) GRAN MAT x10^3(ANC) 1.69 10*3/uL 1.88-7.09 L (test code = 6186943805) IMM GRAN x10^3 (test <0.03 0.00-0.06 code = 2311858281) LYMPH x10^3 (test code 1.34 10*3/uL 1.32-3.29 = 731-0) MONO x10^3 (test code 0.29 10*3/uL 0.33-0.92 L = 742-7) EOS x10^3 (test code = 0.08 10*3/uL 0.03-0.39 711-2) BASO x10^3 (test code <0.03 0.01-0.07 = 704-7) Lab Interpretation Abnormal (test code = 79517-4) [facility] CenterPhosphorus [id number] 01:21:52 Test Item Value Reference Range Interpretation Comments PHOSPHORUS (test code = 9063344802) 3.9 mg/dL 2.5-5.0 Lab Interpretation (test code = Normal 35107-7) [facility] CenterTROPONIN [id number] 22:06:24 Test Item Value Reference Interpretation Comments Range TROPONIN I (test 0.006 ng/mL See_Comment [Automated code = 2175698129) message] The system which generated this result [...] biotin. Lab Interpretation Normal (test code = 89833-4) [facility]UM2022-04-10 21:55:26 Test Item Value Reference Range Interpretation Comments MAGNESIUM (test code = 9568061472) 1.6 mg/dL 1.7-2.4 L Lab Interpretation (test code = Abnormal 47303-8) [facility] CenterCOMP[facility] METABOLIC PANEL (80796)2021-07-23 21:55:06 Test Item Value Reference Range Interpretation Comments NA (test code = 139 mmol/L 135-145 5910328943) K (test code = 4.3 mmol/L 3.5-5.0 0619539271) CL (test code = 103 mmol/L 98-108 9718501119) CO2 TOTAL (test code = 24 mmol/L 23-31 2673376301) AGAP (test code = 2-16 0262344121) BUN (test code = 15 mg/dL 7-23 1313026034) GLUCOSE (test code = 102 mg/dL 70-110 4979176996) CREATININE (test code = 0.74 mg/dL 0.50-1.04 9035598677) TOTAL BILI (test code = 2.0 mg/dL 0.1-1.1 H 1337905904) CALCIUM (test code = 9.4 mg/dL 8.6-10.6 8112798565) T PROTEIN (test code = 8.9 g/dL 6.3-8.2 H 7355648870) ALBUMIN (test code = 4.9 g/dL 3.5-5.0 6670022222) ALK PHOS (test code = 653 U/L 34-122 H 4409656296) ALTv (test code = 133 U/L 5-35 H 1742-6) AST(SGOT) (test code = 130 U/L 13-40 H 4338144176) eGFR (test code = mL/min/1.73m2 9917793666) KIM (test code = KIM) Association of [...] tests). Lab Interpretation Abnormal (test code = 00886-8) [facility] CenterD-ZNJSR8069-97-91 21:55:06 Test Item Value Reference Interpretation Comments Range D-DIMER (test code = See_Comment [Autom ated 5296896557) message] The system which generated this result [...] diagnosis. Lab Interpretation Normal (test code = 22192-5) [facility] 21:54:46 Test Item Value Reference Range Interpretation Comments LIPASE (test code = 7196086584) 66 U/L 0-220 Lab Interpretation (test code = Normal 78244-5) [facility] CenterCB WITH [id number] 21:44:24 Test Item Value Reference Range Interpretation [...] RDW-SD (test code = 47.5 fL 39.0-49.9 38492-6) RDW-CV (test code = 13.9 % 12.0-15.5 788-0) PLT (test code = See_Comment L [Automated 777-3) message] The sy stem which generated this result transmitted reference range : 166 - 358 10*3/ ?L. The reference r luca was not used to interpret this result as normal/abnormal . MPV (test code = 10.1 fL 9.5-12.9 33867-8) NRBC/100 WBC (test See_Comment [Automat ed code = 9751300560) message] The system which generated this result transmitted reference range : 0.0 - 10.0 /100 WBCs. The refer ence range was not u sed to interpret th is result as normal/abnormal . NRBC x10^3 (test code <0.01 See_Comment [Auto mated = 0331944407) message] The s ystem which generated this result transmitted reference range : 10*3/?L. The reference range was not used to interpret this result as normal/abnormal . GRAN MAT (NEUT) % 67.1 % (test code = 770-8) IMM GRAN % (test code 0.20 % = 8486196581) LYMPH % (test code = 24.9 % 736-9) MONO % (test code = 5.9 % 5905-5) EOS % (test code = 1.7 % 713-8) BASO % (test code = 0.2 % 706-2) GRAN MAT x10^3(ANC) 2.74 10*3/uL 1.88-7.09 (test code = 7378639843) IMM GRAN x10^3 (test <0.03 0.00-0.06 code = 6646211268) LYMPH x10^3 (test code 1.02 10*3/uL 1.32-3.29 L = 731-0) MONO x10^3 (test code 0.24 10*3/uL 0.33-0.92 L = 742-7) EOS x10^3 (test code = 0.07 10*3/uL 0.03-0.39 711-2) BASO x10^3 (test code <0.03 0.01-0.07 = 704-7) Lab Interpretation Abnormal (test code = 01806-0) [facility] CenterCOLBY [id number] 21:47:03 Test Item Value Reference Interpretation Comments Range TROPONIN I (test 0.006 ng/mL See_Comment [Automated code = 5521325127) message] The system which generated this result [...] biotin. Lab Interpretation Normal (test code = 18410-0) [facility] CenterN-TERMINAL [id number] 21:44:02 Test Item Value Reference Range Interpretation Comments NT-proBNP (test code 75 pg/mL See_Comment [Autom ated = 5649602331) message] The system which generated this result transmitted reference range : <=125. The reference range was not used to interpret this result as normal/abnormal . KIM (test code = KIM) Biotin has been reported to cause a negative bias, interpret results relative to patient's use of biotin. Lab Interpretation Normal (test code = 72012-7) [facility] CenterCOMP[facility] METABOLIC PANEL (63361)2021-06-03 21:37:20 Test Item Value Reference Range Interpretation Comments NA (test code = 137 mmol/L 135-145 4093815315) K (test code = 4.2 mmol/L 3.5-5.0 8656720430) CL (test code = 108 mmol/L 98-108 7260943145) CO2 TOTAL (test code = 26 mmol/L 23-31 4019431786) AGAP (test code = 2-16 1277438379) BUN (test code = 13 mg/dL 7-23 2071581075) GLUCOSE (test code = 83 mg/dL 70-110 9072460861) CREATININE (test code = 0.51 mg/dL 0.50-1.04 4649391265) TOTAL BILI (test code = 1.4 mg/dL 0.1-1.1 H 5546266475) CALCIUM (test code = 8.6 mg/dL 8.6-10.6 4022614331) T PROTEIN (test code = 7.8 g/dL 6.3-8.2 5586888891) ALBUMIN (test code = 4.3 g/dL 3.5-5.0 3033520195) ALK PHOS (test code = 731 U/L 34-122 H 9334640814) ALTv (test code = 162 U/L 5-35 H 1742-6) AST(SGOT) (test code = 251 U/L 13-40 H 8014613506) eGFR (test code = mL/min/1.73m2 7555385486) KIM (test code = KIM) Association of [...] tests). Lab Interpretation Abnormal (test code = 70575-1) [facility]20[facility] 21:37:00 Test Item Value Reference Range Interpretation Comments LIPASE (test code = 7616395038) 62 U/L 0-220 Lab Interpretation (test code = Normal 92365-3) [facility] CenterACTIVATED PARTIAL THRMPLAS [id number] 21:33:43 Test Item Value Reference Range Interpretation Comments APTT Patient (test See_Comment [Automat ed code = 3173-2) message] The system which generated this result transmitted reference range : 23 - 38 Seconds . The reference range was not used to interpr et this result as normal/abnormal . KIM (test code = KIM) The [facility] patient population mean normal value for aPTT is 30 seconds. Lab Interpretation Normal (test code = 97855-1) [facility] CenterPROTHROMBIN TIME / [id number] 21:31:42 Test Item Value Reference Range Interpretation [...] tions. Lab Interpretation (test Normal code = 39547-4) [facility] CenterCBC WITH [id number] 21:18:43 Test Item Value Reference Range Interpretation Comments WBC (test code = See_Comment L [Automated 5690-2) message] The sy stem which generated this result transmitted reference range : 4.30 - 11.10 10*3/?L. The reference range was not used to interpret this result as normal/abnormal . RBC (test code = See_Comment L [Automated 389-8) message] The sy stem which generated this [...] RDW-SD (test code = 46.3 fL 39.0-49.9 58980-1) RDW-CV (test code = 13.8 % 12.0-15.5 788-0) PLT (test code = See_Comment L [Automated 777-3) message] The sy stem which generated this result transmitted reference range : 166 - 358 10*3/ ?L. The reference r luca was not used to interpret this result as normal/abnormal . MPV (test code = 9.5 fL 9.5-12.9 78743-5) IPF % (test code = 2.0 % 1.3-7.7 Platelet count 4773771752) measured by fluorescence method. NRBC/100 WBC (test See_Comment [Automat ed code = 2626168345) message] The system which generated this result transmitted reference range : 0.0 - 10.0 /100 WBCs. The refer ence range was not u sed to interpret th is result as normal/abnormal . NRBC x10^3 (test code <0.01 See_Comment [Auto mated = 2168238908) message] The s ystem which generated this result transmitted reference range : 10*3/?L. The reference range was not used to interpret this result as normal/abnormal . GRAN MAT (NEUT) % 68.8 % (test code = 770-8) IMM GRAN % (test code 0.20 % = 7629921684) LYMPH % (test code = 20.0 % 736-9) MONO % (test code = 10.3 % 5905-5) EOS % (test code = 0.5 % 713-8) BASO % (test code = 0.2 % 706-2) GRAN MAT x10^3(ANC) 2.79 10*3/uL 1.88-7.09 (test code = 5970434364) IMM GRAN x10^3 (test <0.03 0.00-0.06 code = 9866460817) LYMPH x10^3 (test code 0.81 10*3/uL 1.32-3.29 L = 731-0) MONO x10^3 (test code 0.42 10*3/uL 0.33-0.92 = 742-7) EOS x10^3 (test code = <0.03 0.03-0.39 L 711-2) BASO x10^3 (test code <0.03 0.01-0.07 = 704-7) Lab Interpretation Abnormal (test code = 25311-0) [facility] [id number] 20:33:44 Test Item Value Reference Range Interpretation Comments LACTIC ACID (test code = 1.37 mmol/L 0.50-2.20 [id number]) Lab Interpretation (test code = Normal 77447-4) [facility] [id number] 06:39:31 Test Item Value Reference Interpretation Comments Range TROPONIN I (test 0.027 ng/mL See_Comment [Automated code = [id number]) message] The system which generated this result [...] biotin. Lab Interpretation Normal (test code = 17866-2) [id number] 06:36:10 Test Item Value Reference Range Interpretation Comments NT-proBNP (test code 68 pg/mL See_Comment [Autom ated = [id number]) message] The system which generated this result transmitted reference range : <=125. The reference range was not used to interpret this result as normal/abnormal . KIM (test code = KIM) Biotin has been reported to cause a negative bias, interpret results relative to patient's use of biotin. Lab Interpretation Normal (test code = 17774-4) [facility] WITH [id number] 06:30:54 Test Item Value Reference Range Interpretation [...] RDW-SD (test code = 47.1 fL 39.0-49.9 20467-2) RDW-CV (test code = 13.9 % 12.0-15.5 788-0) PLT (test code = See_Comment L [Automated 777-3) message] The sy stem which generated this result transmitted reference range : 166 - 358 10*3/ ?L. The reference r luca was not used to interpret this result as normal/abnormal . MPV (test code = 10.2 fL 9.5-12.9 95025-9) NRBC/100 WBC (test See_Comment [Automat ed code = 3227166394) message] The system which generated this result transmitted reference range : 0.0 - 10.0 /100 WBCs. The refer ence range was not u sed to interpret th is result as normal/abnormal . NRBC x10^3 (test code <0.01 See_Comment [Auto mated = 5811045076) message] The s ystem which generated this result transmitted reference range : 10*3/?L. The reference range was not used to interpret this result as normal/abnormal . GRAN MAT (NEUT) % 62.6 % (test code = 770-8) IMM GRAN % (test code 0.00 % = 9284386892) LYMPH % (test code = 25.3 % 736-9) MONO % (test code = 9.5 % 5905-5) EOS % (test code = 2.2 % 713-8) BASO % (test code = 0.4 % 706-2) GRAN MAT x10^3(ANC) 1.71 10*3/uL 1.88-7.09 L (test code = 6103014747) IMM GRAN x10^3 (test <0.03 0.00-0.06 code = 0675092346) LYMPH x10^3 (test code 0.69 10*3/uL 1.32-3.29 L = 731-0) MONO x10^3 (test code 0.26 10*3/uL 0.33-0.92 L = 742-7) EOS x10^3 (test code = 0.06 10*3/uL 0.03-0.39 711-2) BASO x10^3 (test code <0.03 0.01-0.07 = 704-7) Lab Interpretation Abnormal (test code = 36183-6) [facility]. METABOLIC PANEL ([id number])2021-05-22 06:27:49 Test Item Value Reference Range Interpretation Comments NA (test code = 138 mmol/L 135-145 6736126548) K (test code = 4.9 mmol/L 3.5-5.0 7855933286) CL (test code = 105 mmol/L 98-108 2514694772) CO2 TOTAL (test code = 24 mmol/L 23-31 0534777923) AGAP (test code = 2-16 6183408205) BUN (test code = 6 mg/dL 7-23 L 2085617876) GLUCOSE (test code = 128 mg/dL 70-110 H 9805289229) CREATININE (test code = 0.54 mg/dL 0.50-1.04 6432998765) TOTAL BILI (test code = 1.3 mg/dL 0.1-1.1 H 0387664117) CALCIUM (test code = 8.4 mg/dL 8.6-10.6 L 0366053674) T PROTEIN (test code = 8.3 g/dL 6.3-8.2 H 2040177739) ALBUMIN (test code = 4.4 g/dL 3.5-5.0 9568659237) ALK PHOS (test code = 650 U/L 34-122 H 1775150807) ALTv (test code = 59 U/L 5-35 H 1742-6) AST(SGOT) (test code = 105 U/L 13-40 H 0429917594) eGFR (test code = mL/min/1.73m2 9743175609) KIM (test code = KIM) Association of [...] tests). Lab Interpretation Abnormal (test code = 03997-7) [facility] MOLECULAR [id number] 15:37:16 Test Item Value Reference Range Interpretation Comments POCT Molecular FluA (test code = Negative Negative 56349-8) POCT Molecular FluB (test code = Negative Negative 79269-2) Lab Interpretation (test code = Normal 83591-0) [facility] MOLECULAR [id number] 15:30:18 Test Item Value Reference Range Interpretation Comments POCT Molecular Strep (test code = Negative Negative 83026-5) Lab Interpretation (test code = Normal 89362-1) [id number] 21:11:35 Test Item Value Reference Interpretation Comments Range TROPONIN I (test 0.002 ng/mL See_Comment [Automated code = 2296963090) message] The system which generated this result [...] biotin. Lab Interpretation Normal (test code = 46772-0) [facility]. METABOLIC PANEL ([id number])2021-04-15 20:54:19 Test Item Value Reference Range Interpretation Comments NA (test code = 137 mmol/L 135-145 0441122425) K (test code = 3.8 mmol/L 3.5-5.0 0410970038) CL (test code = 103 mmol/L 98-108 6420522193) CO2 TOTAL (test code = 26 mmol/L 23-31 8037559831) AGAP (test code = 2-16 1496127305) BUN (test code = 12 mg/dL 7-23 6632947475) GLUCOSE (test code = 111 mg/dL 70-110 H 3285370549) CREATININE (test code = 0.61 mg/dL 0.50-1.04 8819985314) TOTAL BILI (test code = 1.2 mg/dL 0.1-1.1 H 7656785172) CALCIUM (test code = 8.9 mg/dL 8.6-10.6 9133249284) T PROTEIN (test code = 8.1 g/dL 6.3-8.2 5625005264) ALBUMIN (test code = 4.3 g/dL 3.5-5.0 8278354360) ALK PHOS (test code = 693 U/L 34-122 H 1402742475) ALTv (test code = 93 U/L 5-35 H 1742-6) AST(SGOT) (test code = 108 U/L 13-40 H 7043948081) eGFR (test code = mL/min/1.73m2 9387603812) KIM (test code = KIM) Association of [...] tests). Lab Interpretation Abnormal (test code = 91865-6) [facility]54 Test Item Value Reference Range Interpretation Comments LIPASE (test code = 1406503042) 59 U/L 0-220 Lab Interpretation (test code = Normal 43769-0) [facility] [id number] 20:33:32 Test Item Value Reference Range Interpretation [...] RDW-SD (test code = 45.8 fL 39.0-49.9 21777-7) RDW-CV (test code = 13.7 % 12.0-15.5 788-0) PLT (test code = See_Comment [Automated 777-3) message] The sy stem which generated this result transmitted reference range : 166 - 358 10*3/ ?L. The reference r ulca was not used to interpret this result as normal/abnormal . MPV (test code = 9.5 fL 9.5-12.9 75367-3) NRBC/100 WBC (test See_Comment [Automat ed code = 5256997906) message] The system which generated this result transmitted reference range : 0.0 - 10.0 /100 WBCs. The refer ence range was not u sed to interpret th is result as normal/abnormal . NRBC x10^3 (test code <0.01 See_Comment [Auto mated = 7132206550) message] The s ystem which generated this result transmitted reference range : 10*3/?L. The reference range was not used to interpret this result as normal/abnormal . GRAN MAT (NEUT) % 70.5 % (test code = 770-8) IMM GRAN % (test code 0.70 % = 0498252572) LYMPH % (test code = 20.2 % 736-9) MONO % (test code = 6.7 % 5905-5) EOS % (test code = 1.4 % 713-8) BASO % (test code = 0.5 % 706-2) GRAN MAT x10^3(ANC) 3.07 10*3/uL 1.88-7.09 (test code = 9009640181) IMM GRAN x10^3 (test 0.03 10*3/uL 0.00-0.06 code = 0963296021) LYMPH x10^3 (test code 0.88 10*3/uL 1.32-3.29 L = 731-0) MONO x10^3 (test code 0.29 10*3/uL 0.33-0.92 L = 742-7) EOS x10^3 (test code = 0.06 10*3/uL 0.03-0.39 711-2) BASO x10^3 (test code <0.03 0.01-0.07 = 704-7) Lab Interpretation Abnormal (test code = 53899-8) [facility] [id number] 01:49:11 Test Item Value Reference Interpretation Comments Range TROPONIN I (test 0.002 ng/mL See_Comment [Automated code = 7571637029) message] The system which generated this result [...] biotin. Lab Interpretation Normal (test code = 15987-5) [facility] [id number] 01:46:10 Test Item Value Reference Range Interpretation Comments NT-proBNP (test code 56 pg/mL See_Comment [Autom ated = 5488310887) message] The system which generated this result transmitted reference range : <=125. The reference range was not used to interpret this result as normal/abnormal . KIM (test code = KIM) Biotin has been reported to cause a negative bias, interpret results relative to patient's use of biotin. Lab Interpretation Normal (test code = 16048-5) [facility] ([id number])2021-03-26 01:37:29 Test Item Value Reference Range Interpretation Comments NA (test code = 134 mmol/L 135-145 L 6179984080) K (test code = 4.6 mmol/L 3.5-5.0 8040582927) CL (test code = 103 mmol/L 98-108 3254616785) CO2 TOTAL (test code = 21 mmol/L 23-31 L 0753418791) AGAP (test code = 2-16 3224908118) BUN (test code = 21 mg/dL 7-23 0218918872) GLUCOSE (test code = 98 mg/dL 70-110 8863261882) CREATININE (test code = 0.89 mg/dL 0.50-1.04 0531449966) TOTAL BILI (test code = 1.0 mg/dL 0.1-1.2 5025988822) CALCIUM (test code = 9.6 mg/dL 8.6-10.6 4174350554) T PROTEIN (test code = 8.0 g/dL 6.3-8.2 2658533389) ALBUMIN (test code = 4.5 g/dL 3.5-5.0 8198817869) ALK PHOS (test code = 818 U/L 34-122 H 8785172540) ALTv (test code = 201 U/L 5-35 H 2-6) AST(SGOT) (test code = 174 U/L 13-40 H 4070075128) eGFR (test code = mL/min/1.73m2 3568224857) KIM (test code = KIM) Association of [...] tests). Lab Interpretation Abnormal (test code = 67357-5) [facility] 01:37:09 Test Item Value Reference Range Interpretation Comments LIPASE (test code = 5530531028) 176 U/L 0-220 Lab Interpretation (test code = Normal 98146-5) [facility] WITH [id number] 01:34:08 Test Item Value Reference Range Interpretation [...] RDW-SD (test code = 43.3 fL 39.0-49.9 05050-8) RDW-CV (test code = 13.0 % 12.0-15.5 788-0) PLT (test code = See_Comment [Automated 777-3) message] The sy stem which generated this result transmitted reference range : 166 - 358 10*3/ ?L. The reference r luca was not used to interpret this result as normal/abnormal . MPV (test code = 10.0 fL 9.5-12.9 32118-2) NRBC/100 WBC (test See_Comment [Automat ed code = 9386216299) message] The system which generated this result transmitted reference range : 0.0 - 10.0 /100 WBCs. The refer ence range was not u sed to interpret th is result as normal/abnormal . NRBC x10^3 (test code <0.01 See_Comment [Auto mated = 7322010871) message] The s ystem which generated this result transmitted reference range : 10*3/?L. The reference range was not used to interpret this result as normal/abnormal . GRAN MAT (NEUT) % 71.1 % (test code = 770-8) IMM GRAN % (test code 0.50 % = 4031043383) LYMPH % (test code = 18.8 % 736-9) MONO % (test code = 7.0 % 5905-5) EOS % (test code = 2.3 % 713-8) BASO % (test code = 0.3 % 706-2) GRAN MAT x10^3(ANC) 4.38 10*3/uL 1.88-7.09 (test code = 5635322506) IMM GRAN x10^3 (test 0.03 10*3/uL 0.00-0.06 code = 1651183198) LYMPH x10^3 (test code 1.16 10*3/uL 1.32-3.29 L = 731-0) MONO x10^3 (test code 0.43 10*3/uL 0.33-0.92 = 742-7) EOS x10^3 (test code = 0.14 10*3/uL 0.03-0.39 711-2) BASO x10^3 (test code <0.03 0.01-0.07 = 704-7) Lab Interpretation Abnormal (test code = 11959-6) [facility]. METABOLIC PANEL ([id number])2021-03-21 00:26:35 Test Item Value Reference Range Interpretation Comments NA (test code = 135 mmol/L 135-145 1052246649) K (test code = 4.6 mmol/L 3.5-5.0 3632982166) CL (test code = 104 mmol/L 98-108 6802866687) CO2 TOTAL (test code = 24 mmol/L 23-31 4909564780) AGAP (test code = 2-16 5271489478) BUN (test code = 17 mg/dL 7-23 9184111165) GLUCOSE (test code = 88 mg/dL 70-110 8872209041) CREATININE (test code = 0.70 mg/dL 0.50-1.04 6438491944) TOTAL BILI (test code = 1.0 mg/dL 0.1-1.3 3571047520) CALCIUM (test code = 8.8 mg/dL 8.6-10.6 0988808533) T PROTEIN (test code = 7.2 g/dL 6.3-8.2 5178490996) ALBUMIN (test code = 3.9 g/dL 3.5-5.0 9266332264) ALK PHOS (test code = 844 U/L 34-122 H 0366144368) ALTv (test code = 192 U/L 5-35 H 1742-6) AST(SGOT) (test code = 189 U/L 13-40 H 1399986145) eGFR (test code = mL/min/1.73m2 5650862983) KIM (test code = KIM) Association of [...] tests). Lab Interpretation Abnormal (test code = 97725-0) [facility] [id number] 23:26:58 Test Item Value Reference Interpretation Comments Range TROPONIN I (test 0.026 ng/mL See_Comment [Automated code = 2257439970) message] The system which generated this result [...] biotin. Lab Interpretation Normal (test code = 69384-5) [facility] 23:15:37 Test Item Value Reference Range Interpretation Comments LIPASE (test code = 2306746251) 214 U/L 0-220 Lab Interpretation (test code = Normal 67964-5) [facility] WITH [id number] 22:59:33 Test Item Value Reference Range Interpretation Comments WBC (test code = See_Comment [Automated 6790-2) message] The sy stem which generated this [...] RDW-SD (test code = 43.4 fL 39.0-49.9 16689-0) RDW-CV (test code = 13.0 % 12.0-15.5 788-0) PLT (test code = See_Comment [Automated 777-3) message] The sy stem which generated this result transmitted reference range : 166 - 358 10*3/ ?L. The reference r luca was not used to interpret this result as normal/abnormal . MPV (test code = 10.2 fL 9.5-12.9 00841-7) NRBC/100 WBC (test See_Comment [Automat ed code = 7714245910) message] The system which generated this result transmitted reference range : 0.0 - 10.0 /100 WBCs. The refer ence range was not u sed to interpret th is result as normal/abnormal . NRBC x10^3 (test code <0.01 See_Comment [Auto mated = 4892186625) message] The s ystem which generated this result transmitted reference range : 10*3/?L. The reference range was not used to interpret this result as normal/abnormal . GRAN MAT (NEUT) % 65.8 % (test code = 770-8) IMM GRAN % (test code 0.20 % = 8437950597) LYMPH % (test code = 22.8 % 736-9) MONO % (test code = 7.7 % 5905-5) EOS % (test code = 2.9 % 713-8) BASO % (test code = 0.6 % 706-2) GRAN MAT x10^3(ANC) 3.43 10*3/uL 1.88-7.09 (test code = 2238803868) IMM GRAN x10^3 (test <0.03 0.00-0.06 code = 6592343913) LYMPH x10^3 (test code 1.19 10*3/uL 1.32-3.29 L = 731-0) MONO x10^3 (test code 0.40 10*3/uL 0.33-0.92 = 742-7) EOS x10^3 (test code = 0.15 10*3/uL 0.03-0.39 711-2) BASO x10^3 (test code 0.03 10*3/uL 0.01-0.07 = 704-7) Lab Interpretation Abnormal (test code = 58748-8) [facility] ([id number])2021-02-12 20:12:57 Test Item Value Reference Range Interpretation Comments NA (test code = 137 mmol/L 135-145 4317974929) K (test code = 4.7 mmol/L 3.5-5.0 4446228877) CL (test code = 106 mmol/L 98-108 9771200124) CO2 TOTAL (test code = 23 mmol/L 23-31 1880337639) AGAP (test code = 2-16 2387828955) BUN (test code = 16 mg/dL 7-23 0388465393) GLUCOSE (test code = 116 mg/dL 70-110 H 9777550177) CREATININE (test code = 0.65 mg/dL 0.50-1.04 4192491065) TOTAL BILI (test code = 1.6 mg/dL 0.1-1.1 H 9420637118) CALCIUM (test code = 9.6 mg/dL 8.6-10.6 9490422002) T PROTEIN (test code = 8.3 g/dL 6.3-8.2 H 3840675034) ALBUMIN (test code = 4.5 g/dL 3.5-5.0 3396642354) ALK PHOS (test code = 650 U/L 34-122 H 5011697332) ALTv (test code = 146 U/L 5-35 H 1742-6) AST(SGOT) (test code = 174 U/L 13-40 H 5353324114) eGFR (test code = mL/min/1.73m2 4314139936) KIM (test code = KIM) Association of [...] tests). Lab Interpretation Abnormal (test code = 44718-0) [facility] 20:12:12 Test Item Value Reference Range Interpretation Comments LIPASE (test code = 2062849220) 86 U/L 0-220 Lab Interpretation (test code = Normal 98325-1) [facility] WITH [id number] 20:02:15 Test Item Value Reference Range Interpretation Comments WBC (test code = See_Comment [Automated 6690-2) message] The sy stem which generated this result transmitted reference range : 4.30 - 11.10 10*3/?L. The reference range was not used to interpret this result as normal/abnormal . RBC (test code = See_Comment L [Automated 609-8) message] The sy stem which generated this [...] RDW-SD (test code = 46.4 fL 39.0-49.9 36016-9) RDW-CV (test code = 13.8 % 12.0-15.5 788-0) PLT (test code = See_Comment [Automated 777-3) message] The sy stem which generated this result transmitted reference range : 166 - 358 10*3/ ?L. The reference r luca was not used to interpret this result as normal/abnormal . MPV (test code = 9.8 fL 9.5-12.9 97394-5) NRBC/100 WBC (test See_Comment [Automat ed code = 4737538634) message] The system which generated this result transmitted reference range : 0.0 - 10.0 /100 WBCs. The refer ence range was not u sed to interpret th is result as normal/abnormal . NRBC x10^3 (test code <0.01 See_Comment [Auto mated = 2664632379) message] The s ystem which generated this result transmitted reference range : 10*3/?L. The reference range was not used to interpret this result as normal/abnormal . GRAN MAT (NEUT) % 69.4 % (test code = 770-8) IMM GRAN % (test code 0.40 % = 0409366615) LYMPH % (test code = 20.4 % 736-9) MONO % (test code = 7.2 % 5905-5) EOS % (test code = 2.0 % 713-8) BASO % (test code = 0.6 % 706-2) GRAN MAT x10^3(ANC) 3.77 10*3/uL 1.88-7.09 (test code = 5017344263) IMM GRAN x10^3 (test <0.03 0.00-0.06 code = 9855478612) LYMPH x10^3 (test code 1.11 10*3/uL 1.32-3.29 L = 731-0) MONO x10^3 (test code 0.39 10*3/uL 0.33-0.92 = 742-7) EOS x10^3 (test code = 0.11 10*3/uL 0.03-0.39 711-2) BASO x10^3 (test code 0.03 10*3/uL 0.01-0.07 = 704-7) Lab Interpretation Abnormal (test code = 41691-2) [facility] ([id number])2021-01-18 04:36:17 Test Item Value Reference Range Interpretation Comments NA (test code = 137 mmol/L 135-145 3216553277) K (test code = 4.2 mmol/L 3.5-5.0 5442427152) CL (test code = 103 mmol/L 98-108 3805034324) CO2 TOTAL (test code = 27 mmol/L 23-31 2412545850) AGAP (test code = 2-16 2527916760) BUN (test code = 13 mg/dL 7-23 0495834484) GLUCOSE (test code = 100 mg/dL 70-110 3341237336) CREATININE (test code = 0.73 mg/dL 0.50-1.04 6656159919) TOTAL BILI (test code = 1.4 mg/dL 0.1-1.1 H 4229943260) CALCIUM (test code = 9.1 mg/dL 8.6-10.6 7316220143) T PROTEIN (test code = 7.2 g/dL 6.3-8.2 8682361220) ALBUMIN (test code = 4.0 g/dL 3.5-5.0 5716307043) ALK PHOS (test code = 585 U/L 34-122 H 6119087912) ALTv (test code = 78 U/L 5-35 H 1742-6) AST(SGOT) (test code = 73 U/L 13-40 H 1390479019) eGFR (test code = mL/min/1.73m2 4621988231) KIM (test code = KIM) Association of [...] tests). Lab Interpretation Abnormal (test code = 47224-4) [facility] 04:02:39 Test Item Value Reference Range Interpretation Comments LIPASE (test code = 8509680867) 114 U/L 0-220 Lab Interpretation (test code = Normal 72205-0) [facility] WITH [id number] 03:49:11 Test Item Value Reference Range Interpretation Comments WBC (test code = See_Comment [Automated 6190-2) message] The sy stem which generated this result transmitted reference range : 4.30 - 11.10 10*3/?L. The reference range was not used to interpret this result as normal/abnormal . RBC (test code = See_Comment L [Automated 149-8) message] The sy stem which generated this [...] (test code = 50.6 fL 39.0-49.9 H 75583-2) RDW-CV (test code = 14.8 % 12.0-15.5 788-0) PLT (test code = See_Comment [Automated 777-3) message] The sy stem which generated this result transmitted reference range : 166 - 358 10*3/ ?L. The reference r luca was not used to interpret this result as normal/abnormal . MPV (test code = 10.7 fL 9.5-12.9 94568-3) NRBC/100 WBC (test See_Comment [Automat ed code = 3925783748) message] The system which generated this result transmitted reference range : 0.0 - 10.0 /100 WBCs. The refer ence range was not u sed to interpret th is result as normal/abnormal . NRBC x10^3 (test code <0.01 See_Comment [Auto mated = 5287374238) message] The s ystem which generated this result transmitted reference range : 10*3/?L. The reference range was not used to interpret this result as normal/abnormal . GRAN MAT (NEUT) % 66.1 % (test code = 770-8) IMM GRAN % (test code 0.20 % = 9477914746) LYMPH % (test code = 23.5 % 736-9) MONO % (test code = 8.1 % 5905-5) EOS % (test code = 1.7 % 713-8) BASO % (test code = 0.4 % 706-2) GRAN MAT x10^3(ANC) 3.49 10*3/uL 1.88-7.09 (test code = 9432687101) IMM GRAN x10^3 (test <0.03 0.00-0.06 code = 5584036403) LYMPH x10^3 (test code 1.24 10*3/uL 1.32-3.29 L = 731-0) MONO x10^3 (test code 0.43 10*3/uL 0.33-0.92 = 742-7) EOS x10^3 (test code = 0.09 10*3/uL 0.03-0.39 711-2) BASO x10^3 (test code <0.03 0.01-0.07 = 704-7) Lab Interpretation Abnormal (test code = 39421-3) [facility]71263[facility] (ALB,T.PRO,BILI T,BU/BC,ALT,AST,ALK PHOS)2020-12-30 18:48:24 Test Item Value Reference Range Interpretation Comments TOTAL BILI (test code = 9225279212) 2.4 mg/dL 0.1-1.1 H BILI UNCON (test code = 3088243469) 0.5 mg/dL 0.1-1.1 BILI CONJ (test code = 2421039040) 0.0 mg/dL 0.0-0.3 T PROTEIN (test code = 6702936171) 9.8 g/dL 6.3-8.2 H ALBUMIN (test code = 4532144743) 4.9 g/dL 3.5-5.0 ALK PHOS (test code = 1173408987) 1181 U/L 34-122 H ALTv (test code = 1742-6) 271 U/L 5-35 H AST(SGOT) (test code = 3622829838) 192 U/L 13-40 H Lab Interpretation (test code = Abnormal 77246-1) [facility] (90290[facility] (ALB,T.PRO,BILI T,BU/BC,ALT,AST,ALK PHOS)2020-12-30 18:48:24 Test Item Value Reference Range Interpretation Comments TOTAL BILI (test code = 2128823192) 2.4 mg/dL 0.1-1.1 H BILI UNCON (test code = 4400205999) 0.5 mg/dL 0.1-1.1 BILI CONJ (test code = 9564540690) 0.0 mg/dL 0.0-0.3 T PROTEIN (test code = 7604914054) 9.8 g/dL 6.3-8.2 H ALBUMIN (test code = 5487493764) 4.9 g/dL 3.5-5.0 ALK PHOS (test code = 9144372760) 1181 U/L 34-122 H ALTv (test code = 1742-6) 271 U/L 5-35 H AST(SGOT) (test code = 7573216561) 192 U/L 13-40 H Lab Interpretation (test code = Abnormal 35649-1) [facility] METABOLIC PANEL (NA, K, CL, CO2, GLUCOSE, BUN, CREATININE, CA)2020-12-30 18:48:02 Test Item Value Reference Range Interpretation Comments NA (test code = 138 mmol/L 135-145 5251082055) K (test code = 4.7 mmol/L 3.5-5.0 2283184083) CL (test code = 106 mmol/L 98-108 8680916935) CO2 TOTAL (test code = 20 mmol/L 23-31 L 5478626318) AGAP (test code = 2-16 6979271171) BUN (test code = 19 mg/dL 7-23 2535584075) GLUCOSE (test code = 134 mg/dL 70-110 H 2351578630) CREATININE (test code = 0.62 mg/dL 0.50-1.04 3211851719) CALCIUM (test code = 10.1 mg/dL 8.6-10.6 9251495784) eGFR (test code = mL/min/1.73m2 7214333881) KIM (test code = KIM) Association of [...] tests). Lab Interpretation Abnormal (test code = 12131-5) [facility] 18:48:02 Test Item Value Reference Range Interpretation Comments LIPASE (test code = 3358723678) 292 U/L 0-220 H Lab Interpretation (test code = Abnormal 15289-7) [facility] (NA, K, CL, CO2, GLUCOSE, BUN, CREATININE, CA)2020-12-30 18:48:02 Test Item Value Reference Range Interpretation Comments NA (test code = 138 mmol/L 135-145 2264631685) K (test code = 4.7 mmol/L 3.5-5.0 3792172567) CL (test code = 106 mmol/L 98-108 7873123888) CO2 TOTAL (test code = 20 mmol/L 23-31 L 7609841475) AGAP (test code = 2-16 4004052672) BUN (test code = 19 mg/dL 7-23 0648241047) GLUCOSE (test code = 134 mg/dL 70-110 H 3060409453) CREATININE (test code = 0.62 mg/dL 0.50-1.04 1789402493) CALCIUM (test code = 10.1 mg/dL 8.6-10.6 5811278279) eGFR (test code = mL/min/1.73m2 9618268311) KIM (test code = KIM) Association of [...] tests). Lab Interpretation Abnormal (test code = 13495-2) [facility] Test Item Value Reference Range Interpretation Comments LIPASE (test code = 6137634079) 292 U/L 0-220 H Lab Interpretation (test code = Abnormal 51459-6) [facility] WITH [id number] 18:39:23 Test Item Value Reference Range Interpretation Comments WBC (test code = See_Comment [Automated 1753-2) message] The sy stem which generated this result transmitted reference range : 4.30 - 11.10 10*3/?L. The reference range was not used to interpret this result as normal/abnormal . RBC (test code = See_Comment [Automated 011-8) message] The sy stem which generated this [...] RDW-SD (test code = 48.4 fL 39.0-49.9 18229-8) RDW-CV (test code = 14.6 % 12.0-15.5 788-0) PLT (test code = See_Comment [Automated 777-3) message] The sy stem which generated this result transmitted reference range : 166 - 358 10*3/ ?L. The reference r luca was not used to interpret this result as normal/abnormal . MPV (test code = 10.1 fL 9.5-12.9 58947-9) NRBC/100 WBC (test See_Comment [Automat ed code = 5853970055) message] The system which generated this result transmitted reference range : 0.0 - 10.0 /100 WBCs. The refer ence range was not u sed to interpret th is result as normal/abnormal . NRBC x10^3 (test code <0.01 See_Comment [Auto mated = 8250009155) message] The s ystem which generated this result transmitted reference range : 10*3/?L. The reference range was not used to interpret this result as normal/abnormal . GRAN MAT (NEUT) % 75.2 % (test code = 770-8) IMM GRAN % (test code 0.60 % = 0982663876) LYMPH % (test code = 17.0 % 736-9) MONO % (test code = 5.8 % 5905-5) EOS % (test code = 0.9 % 713-8) BASO % (test code = 0.5 % 706-2) GRAN MAT x10^3(ANC) 8.11 10*3/uL 1.88-7.09 H (test code = 7245228381) IMM GRAN x10^3 (test 0.06 10*3/uL 0.00-0.06 code = 7416737197) LYMPH x10^3 (test code 1.83 10*3/uL 1.32-3.29 = 731-0) MONO x10^3 (test code 0.62 10*3/uL 0.33-0.92 = 742-7) EOS x10^3 (test code = 0.10 10*3/uL 0.03-0.39 711-2) BASO x10^3 (test code 0.05 10*3/uL 0.01-0.07 = 704-7) Lab Interpretation Abnormal (test code = 96863-7) [facility] WITH [id number] 18:39:23 Test Item Value Reference Range Interpretation [...] RDW-SD (test code = 48.4 fL 39.0-49.9 65362-5) RDW-CV (test code = 14.6 % 12.0-15.5 788-0) PLT (test code = See_Comment [Automated 777-3) message] The sy stem which generated this result transmitted reference range : 166 - 358 10*3/ ?L. The reference r luca was not used to interpret this result as normal/abnormal . MPV (test code = 10.1 fL 9.5-12.9 92464-7) NRBC/100 WBC (test See_Comment [Automat ed code = 4733564424) message] The system which generated this result transmitted reference range : 0.0 - 10.0 /100 WBCs. The refer ence range was not u sed to interpret th is result as normal/abnormal . NRBC x10^3 (test code <0.01 See_Comment [Auto mated = 6466017945) message] The s [employer] which generated this result transmitted reference range : 10*3/?L. The reference range was not used to interpret this result as normal/abnormal . GRAN MAT (NEUT) % 75.2 % (test code = 770-8) IMM GRAN % (test code 0.60 % = 9045979283) LYMPH % (test code = 17.0 % 736-9) MONO % (test code = 5.8 % 5905-5) EOS % (test code = 0.9 % 713-8) BASO % (test code = 0.5 % 706-2) GRAN MAT x10^3(ANC) 8.11 10*3/uL 1.88-7.09 H (test code = 2887026840) IMM GRAN x10^3 (test 0.06 10*3/uL 0.00-0.06 code = 6283964973) LYMPH x10^3 (test code 1.83 10*3/uL 1.32-3.29 = 731-0) MONO x10^3 (test code 0.62 10*3/uL 0.33-0.92 = 742-7) EOS x10^3 (test code = 0.10 10*3/uL 0.03-0.39 711-2) BASO x10^3 (test code 0.05 10*3/uL 0.01-0.07 = 704-7) Lab Interpretation Abnormal (test code = 80267-2) General acute hospital PELVIS COMPLETE WITH [id number] 23:13:25Focal echogenicity in the left ovary measuring [...] Otherwise unremarkable pelvic ultrasound.RL: [id number] OF REPORT [facility] HospitalL[facility] Acid Whole [id number] 22:23:55 Test Item Value Reference Range Interpretation Comments LACTIC ACID (test code = 1.49 mmol/L 0.50-2.20 9766707554) Lab Interpretation (test code = Normal 37999-3) [facility] [id number] 22:20:59 1. ?No acute intra-abdominal abnormality. 2. ?Gastric wall thickening is nonspecific but can be seen with gastritis. 3. ?Postsurgical changes of cholecystectomy and appendectomy. Pneumobiliaversus nonradiopaque biliary stents are unchanged dating back to 2016. 4. ?Hepatic steatosis and splenomegaly. The 0.9 cm cystic hypodensity atthe uncinate process is slightly smaller from 03/26/2020. [facility], with resultssuggestive of pseudocyst [...] 03/26/2020. This wasevaluated by MR abdomen at [facility] on 09/08/2020, with resultssuggestive of pseudocyst versus side branch IPMN.PreliminaryReport Dictated by Resident: Chester Rivera, Dwight Akers MD., have reviewed this study and agree with the abovereport.[facility]IS2021-[facility]-23 20:42:19 Test Item Value Reference Range Interpretation Comments APPEARANCE (test code = Clear Clear 2404916550) COLOR (test code = Romelia Yellow A 2591190548) PH (test code = 4.8-8.0 3711620840) SP GRAVITY (test code = 1.003-1.030 8495819857) GLU U QUAL (test code = Normal Normal 6131865389) BLOOD (test code = Negative Negative 9880850359) KETONES (test code = Negative Negative 3818068855) PROTEIN (test code = 30 mg/dL Negative A 2887-8) UROBILIN (test code = 4.0 mg/dL Normal A 6232647287) BILIRUBIN (test code = 2 mg/dL Negative A 3369396511) NITRITE (test code = Negative Negative 2022430926) LEUK NICHOLE (test code = Negative Negative 3396277867) RBC/HPF (test code = See_Comment [Autom ated message] 0899920702) The system [employer] generated this result transmit gulshan reference range : 0 - 3 HPF. The refe rence range was not u sed to interpret th is result as normal/abnormal . WBC/HPF (test code = See_Comment [Autom ated message] 8079080048) The system [employer] generated this result transmit gulshan reference range : 0 - 5 HPF. The refe rence range was not u sed to interpret th is result as normal/abnormal . BACTERIA (test code = Few Negative A 6054253257) MUCOUS (test code = Slight Negative LPF A 3360327268) SQ EPITH (test code = HPF 6147789220) HYAL CAST (test code = See_Comment [Aut omated message] 5616292157) The system [employer] generated this result transmit gulshan reference range : <=2 LPF. The refere nce range was not u sed to interpret th is result as normal/abnormal . Lab Interpretation (test Abnormal code = 14816-1) [facility]OLIC PANEL (20852)2020-12-05 20:38:13 Test Item Value Reference Range Interpretation Comments NA (test code = 139 mmol/L 135-145 4603646676) K (test code = 3.6 mmol/L 3.5-5.0 6177002895) CL (test code = 106 mmol/L 98-108 3453334415) CO2 TOTAL (test code = 21 mmol/L 23-31 L 5977836828) AGAP (test code = 2-16 9111773072) BUN (test code = 12 mg/dL 7-23 7621526949) GLUCOSE (test code = 91 mg/dL 70-110 2727041055) CREATININE (test code = 0.53 mg/dL 0.50-1.04 9098705730) TOTAL BILI (test code = 3.6 mg/dL 0.1-1.1 H 2284313254) CALCIUM (test code = 9.8 mg/dL 8.6-10.6 8184889524) T PROTEIN (test code = 9.1 g/dL 6.3-8.2 H 3460668917) ALBUMIN (test code = 4.6 g/dL 3.5-5.0 0663487687) ALK PHOS (test code = 1229 U/L 34-122 H 2906975980) ALTv (test code = 311 U/L 5-35 H 1742-6) AST(SGOT) (test code = 280 U/L 13-40 H 6036627173) eGFR (test code = mL/min/1.73m2 4733624066) KIM (test code = KIM) Association of [...] tests). Lab Interpretation Abnormal (test code = 49484-4) [facility] 20:37:32 Test Item Value Reference Range Interpretation Comments LIPASE (test code = 4210142174) 168 U/L 0-220 Lab Interpretation (test code = Normal 40809-4) [facility] WITH [id number] 20:25:55 Test Item Value Reference Range Interpretation [...] RDW-SD (test code = 49.3 fL 39.0-49.9 76793-4) RDW-CV (test code = 15.0 % 12.0-15.5 788-0) PLT (test code = See_Comment [Automated 777-3) message] The sy stem which generated this result transmitted reference range : 166 - 358 10*3/ ?L. The reference r luca was not used to interpret this result as normal/abnormal . MPV (test code = 10.2 fL 9.5-12.9 37701-1) NRBC/100 WBC (test See_Comment [Automat ed code = 6103805390) message] The system which generated this result transmitted reference range : 0.0 - 10.0 /100 WBCs. The refer ence range was not u sed to interpret th is result as normal/abnormal . NRBC x10^3 (test code <0.01 See_Comment [Auto mated = 7375333019) message] The s ystem which generated this result transmitted reference range : 10*3/?L. The reference range was not used to interpret this result as normal/abnormal . GRAN MAT (NEUT) % 68.6 % (test code = 770-8) IMM GRAN % (test code 0.40 % = 6770924369) LYMPH % (test code = 21.2 % 736-9) MONO % (test code = 7.8 % 5905-5) EOS % (test code = 1.6 % 713-8) BASO % (test code = 0.4 % 706-2) GRAN MAT x10^3(ANC) 3.50 10*3/uL 1.88-7.09 (test code = 9492053176) IMM GRAN x10^3 (test <0.03 0.00-0.06 code = 3475790156) LYMPH x10^3 (test code 1.08 10*3/uL 1.32-3.29 L = 731-0) MONO x10^3 (test code 0.40 10*3/uL 0.33-0.92 = 742-7) EOS x10^3 (test code = 0.08 10*3/uL 0.03-0.39 711-2) BASO x10^3 (test code <0.03 0.01-0.07 = 704-7) Lab Interpretation Abnormal (test code = 15040-6) [facility] CenterLIPID PANEL (74901)(TOTAL CHOLESTEROL, TRIGLYCERIDES, HDL)2020-10-12 16:46:34 Test Item Value Reference Range Interpretation Comments CHOL (test code = 307 mg/dL 120-200 H 6639741301) HDL (test code = 93 mg/dL >50 6992793467) HDLC RATIO (test code = See_Comment [Au tomated message] 1957761157) The system [employer] generated this result transmit gulshan reference range : <=4.5. The refe rence range was not u sed to interpret th is result as normal/abnormal . TRIG (test code = 131 mg/dL 30-170 4809544638) LDL CHOL (test code = 188 mg/dL See_Comment H [Auto mated message] 01787-9) The system [employer] generated this result transmit gulshan reference range : <=160. The refe rence range was not u sed to interpret th is result as normal/abnormal . VLDL (test code = 26 mg/dL 5-60 9896503966) Lab Interpretation (test Abnormal code = 22146-5) [facility] CenterMagnesium Mltyv7020-94-92 09:02:26 Test Item Value Reference Range Interpretation Comments MAGNESIUM (test code = 9534526563) 1.9 mg/dL 1.7-2.4 Lab Interpretation (test code = Normal 69760-9) [facility] CenterHEPATIC FUNCTION PANEL (28044) (ALB,T.PRO,BILI T,BU/BC,ALT,AST,ALK PHOS)2020-10-12 09:02:26 Test Item Value Reference Range Interpretation Comments TOTAL BILI (test code = 2503984405) 1.0 mg/dL 0.1-1.1 BILI UNCON (test code = 1382086104) 0.5 mg/dL 0.1-1.1 BILI CONJ (test code = 4907824470) 0.0 mg/dL 0.0-0.3 T PROTEIN (test code = 4884742061) 7.8 g/dL 6.3-8.2 ALBUMIN (test code = 2984397863) 4.3 g/dL 3.5-5.0 ALK PHOS (test code = 7106908809) 608 U/L 34-122 H ALTv (test code = 1742-6) 156 U/L 5-35 H AST(SGOT) (test code = 2599042970) 136 U/L 13-40 H Lab Interpretation (test code = Abnormal 10435-7) [facility] CenterProthrombin Time / [id number] 08:48:50 Test Item Value Reference Range Interpretation Comments PROTIME PATIENT (test See_Comment [Auto mated message] code = 5964-2) The system [employer] generated this result transmitted ref erence range: 10.1 - 1 2.6 Seconds. The re ference range was not u sed to interpret this result as normal/abnor mal. INR (test code = 6301-6) Nor mal INR <1.1; Warfarin Therap eutic range 2.0 to 3. 0 or 2.5 to 3.5, dep ending upon the indica tions. Lab Interpretation (test Normal code = 26459-7) [facility] CenteraPTT2021-06-30 08:48:50 Test Item Value Reference Range Interpretation Comments APTT Patient (test code See_Comment H [Au tomated message] = 3173-2) The system whic h generated this result transmitted ref erence range: 26 - 36 Seconds. The reference range was not used to int erpret this result as normal/abnormal . Lab Interpretation (test Abnormal code = 34744-4) [facility] with Jyenbaoxmqcc1890-83-44 08:31:22 Test Item Value Reference Range Interpretation [...] RDW-SD (test code = 41.3 fL 39.0-49.9 17900-3) RDW-CV (test code = 12.6 % 12.0-15.5 788-0) PLT (test code = See_Comment [Automated 777-3) message] The sy stem which generated this result transmitted reference range : 166 - 358 10*3/ ?L. The reference r luca was not used to interpret this result as normal/abnormal . MPV (test code = 9.1 fL 9.5-12.9 L 10261-6) NRBC/100 WBC (test See_Comment [Automat ed code = 3775654873) message] The system which generated this result transmitted reference range : 0.0 - 10.0 /100 WBCs. The refer ence range was not u sed to interpret th is result as normal/abnormal . NRBC x10^3 (test code <0.01 See_Comment [Auto mated = 9157151741) message] The s ystem which generated this result transmitted reference range : 10*3/?L. The reference range was not used to interpret this result as normal/abnormal . GRAN MAT (NEUT) % 62.6 % (test code = 770-8) IMM GRAN % (test code 0.40 % = 7259011937) LYMPH % (test code = 26.8 % 736-9) MONO % (test code = 7.7 % 5905-5) EOS % (test code = 2.1 % 713-8) BASO % (test code = 0.4 % 706-2) GRAN MAT x10^3(ANC) 3.32 10*3/uL 1.88-7.09 (test code = 2005774222) IMM GRAN x10^3 (test <0.03 0.00-0.06 code = 9779471294) LYMPH x10^3 (test code 1.42 10*3/uL 1.32-3.29 = 731-0) MONO x10^3 (test code 0.41 10*3/uL 0.33-0.92 = 742-7) EOS x10^3 (test code = 0.11 10*3/uL 0.03-0.39 711-2) BASO x10^3 (test code <0.03 0.01-0.07 = 704-7) Lab Interpretation Abnormal (test code = 41827-7) [facility] METABOLIC PANEL (NA, K, CL, CO2, GLUCOSE, BUN, CREATININE, CA)2020-10-12 04:16:15 Test Item Value Reference Range Interpretation Comments NA (test code = 138 mmol/L 135-145 0797509130) K (test code = 4.1 mmol/L 3.5-5.0 4829918873) CL (test code = 104 mmol/L 98-108 9926229485) CO2 TOTAL (test code 23 mmol/L 23-31 = 8890698341) AGAP (test code = 2-16 9081755773) BUN (test code = 16 mg/dL 7-23 0747719743) GLUCOSE (test code = 83 mg/dL 70-110 4091542187) CREATININE (test code 0.63 mg/dL 0.50-1.04 = 8698905871) CALCIUM (test code = 9.4 mg/dL 8.6-10.6 5972059996) eGFR (test code = mL/min/1.73m2 2240188513) KIM (test code = KIM) Association of [...] or urine or abnormalities in imaging tests). [facility]HEPATIC FUNCTION PANEL (45415) (ALB,T.PRO,BILI T,BU/BC,ALT,AST,ALK PHOS)2020-10-12 04:16:15 Test Item Value Reference Range Interpretation Comments TOTAL BILI (test code = 9886234894) 1.1 mg/dL 0.1-1.1 BILI UNCON (test code = 7750718303) 0.5 mg/dL 0.1-1.1 BILI CONJ (test code = 2387908287) 0.0 mg/dL 0.0-0.3 T PROTEIN (test code = 8756198071) 8.5 g/dL 6.3-8.2 H ALBUMIN (test code = 2684483147) 4.6 g/dL 3.5-5.0 ALK PHOS (test code = 0773061728) 679 U/L 34-122 H ALTv (test code = 1742-6) 168 U/L 5-35 H AST(SGOT) (test code = 6076191410) 143 U/L 13-40 H Lab Interpretation (test code = Abnormal 62267-6) [facility] CenterCOVID-19 (ID NOW RAPID TESTING)2020-10-11 16:36:41 Test Item Value Reference Range Interpretation Comments SARS-CoV-2 Rapid ID NOW Not Detected Not Detected (test code = 76159-5) KIM (test code = KIM) ID NOW COVID-19 Assay is an isothermal nucleic acid amplification test intended for the qualitative detection of nucleic acid from SARS-CoV-2 viral RNA in nasopharyngeal ([employer] MANAGER) specimens. It is used under Emergency Use [...] indicated. Lab Interpretation Normal (test code = 33604-3) [facility] CenterUS GALL [id number] 15:28:53HISTORY: Rule out biliary duct stenosis. COMPARISON: [...] ductstenosis cannot be adequately evaluated by this study.[facility], Radiant Results Inft User - 10/11/2020 [...] ductstenosis cannot be adequately evaluated by this study.[facility] Troponin [id number] 14:35:05 Test Item Value Reference Interpretation Comments Range TROPONIN I (test 0.004 ng/mL See_Comment [Automated code = 4561353334) message] The system which generated this result [...] biotin. Lab Interpretation Normal (test code = 93202-8) [facility] CenterHepatic Function Panel (ALB, T.PRO, BILI T, BU/BC, ALT, AST, ALK PHOS)2020-10-11 14:24:25 Test Item Value Reference Range Interpretation Comments TOTAL BILI (test code = 6644142708) 0.9 mg/dL 0.1-1.1 BILI UNCON (test code = 3968929296) 0.3 mg/dL 0.1-1.1 BILI CONJ (test code = 3045507544) 0.0 mg/dL 0.0-0.3 T PROTEIN (test code = 0625236016) 9.0 g/dL 6.3-8.2 H ALBUMIN (test code = 8786599240) 4.8 g/dL 3.5-5.0 ALK PHOS (test code = 8437283454) 752 U/L 34-122 H ALTv (test code = 1742-6) 164 U/L 5-35 H AST(SGOT) (test code = 4941498299) 166 U/L 13-40 H Lab Interpretation (test code = Abnormal 99828-7) [facility] (NA, K, CL, CO2, GLUCOSE, BUN, CREATININE, CA)2020-10-11 14:24:05 Test Item Value Reference Range Interpretation Comments NA (test code = 139 mmol/L 135-145 7620203589) K (test code = 4.3 mmol/L 3.5-5.0 4103080817) CL (test code = 106 mmol/L 98-108 5216741342) CO2 TOTAL (test code = 22 mmol/L 23-31 L 6794804213) AGAP (test code = 2-16 8564219304) BUN (test code = 15 mg/dL 7-23 8327087537) GLUCOSE (test code = 106 mg/dL 70-110 7665183066) CREATININE (test code = 0.63 mg/dL 0.50-1.04 4362086493) CALCIUM (test code = 10.0 mg/dL 8.6-10.6 9250796090) eGFR (test code = mL/min/1.73m2 9740040476) KIM (test code = KIM) Association of [...] tests). Lab Interpretation Abnormal (test code = 67980-4) [facility] CenterLipase Rnsiy3435-58-05 14:24:05 Test Item Value Reference Range Interpretation Comments LIPASE (test code = 1843245446) 169 U/L 0-220 Lab Interpretation (test code = Normal 58185-4) [facility] CenterUrinalysis2021-06-29 14:23:55 Test Item Value Reference Range Interpretation Comments APPEARANCE (test code = Hazy Clear A 1330606636) COLOR (test code = Yellow Yellow 0723329390) PH (test code = 4.8-8.0 6814615817) SP GRAVITY (test code = 1.003-1.030 0691475997) GLU U QUAL (test code = Normal Normal 7213388438) BLOOD (test code = Negative Negative 8528376975) KETONES (test code = Negative Negative 2268663419) PROTEIN (test code = Negative Negative 2887-8) UROBILIN (test code = Normal Normal 0294580533) BILIRUBIN (test code = Negative Negative 8400040582) NITRITE (test code = Negative Negative 7297995543) LEUK NICHOLE (test code = Negative Negative 3741075726) RBC/HPF (test code = See_Comment [Autom ated message] 8270622634) The system [employer] generated this result transmitted ref erence range: 0 - 3 HP F. The reference range was not used to int erpret this result as normal/abnormal . WBC/HPF (test code = See_Comment [Autom ated message] 1183697841) The system [employer] generated this result transmitted ref erence range: 0 - 5 HP F. The reference range was not used to int erpret this result as normal/abnormal . BACTERIA (test code = Few Negative A 4875806817) AMORPHOUS (test code = Rare Rare HPF 8594053168) SQ EPITH (test code = HPF 6865421452) HYAL CAST (test code = See_Comment H [Aut omated message] 1542025399) The system [employer] generated this result transmitted ref erence range: <=2 LPF. The reference range was not used to int erpret this result as normal/abnormal . Lab Interpretation (test Abnormal code = 25589-1) [facility] with Czqxaswdjxdu6965-51-67 14:14:01 Test Item Value Reference Range Interpretation Comments WBC (test code = See_Comment [Automated message] 6690-2) The system [employer] generated this result transmitted ref erence range: 4.30 - 1 1.10 10*3/?L. The re ference range was not u sed to interpret this result as normal/abnor mal. RBC (test code = See_Comment [Automated message] 789-8) The system [employer] generated this result transmitted ref erence range: [...] RDW-SD (test code 40.1 fL 39.0-49.9 = 37677-5) RDW-CV (test code 12.3 % 12.0-15.5 = 788-0) PLT (test code = See_Comment [Automated message] 777-3) The system whic h generated this result transmitted ref erence range: 166 - 35 8 10*3/?L. The re ference range was not u sed to interpret this result as normal/abnor mal. MPV (test code = 9.7 fL 9.5-12.9 44595-8) NRBC/100 WBC (test See_Comment [Automat ed message] code = 8238543256) The syste m which generated this result transmitted ref erence range: 0.0 - 10 .0 /100 WBCs. The refer ence range was not u sed to interpret this result as normal/abnor mal. NRBC x10^3 (test <0.01 See_Comment [Automated message] code = 4593639844) The syste m which generated this result transmitted ref erence range: 10*3/?L. The reference range was not used to interpr et this result as normal/abnormal . GRAN MAT (NEUT) % 63.7 % (test code = 770-8) IMM GRAN % (test 0.40 % code = 0994922788) LYMPH % (test code 26.2 % = 736-9) MONO % (test code 7.6 % = 5905-5) EOS % (test code = 1.7 % 713-8) BASO % (test code 0.4 % = 706-2) GRAN MAT 3.45 10*3/uL 1.88-7.09 x10^3(ANC) (test code = 8572631258) IMM GRAN x10^3 <0.03 0.00-0.06 (test code = 4075232941) LYMPH x10^3 (test 1.42 10*3/uL 1.32-3.29 code = 731-0) MONO x10^3 (test 0.41 10*3/uL 0.33-0.92 code = 742-7) EOS x10^3 (test 0.09 10*3/uL 0.03-0.39 code = 711-2) BASO x10^3 (test <0.03 0.01-0.07 code = 704-7) [facility]. METABOLIC PANEL (38505)2020-10-04 23:43:59 Test Item Value Reference Range Interpretation Comments NA (test code = 138 mmol/L 135-145 2335088356) K (test code = 4.1 mmol/L 3.5-5.0 1829325051) CL (test code = 105 mmol/L 98-108 5256798854) CO2 TOTAL (test code = 26 mmol/L 23-31 5495536809) AGAP (test code = 2-16 5671006667) BUN (test code = 12 mg/dL 7-23 1314699154) GLUCOSE (test code = 124 mg/dL 70-110 H 1983113184) CREATININE (test code = 0.51 mg/dL 0.50-1.04 7439367261) TOTAL BILI (test code = 1.0 mg/dL 0.1-1.8 4997868960) CALCIUM (test code = 9.3 mg/dL 8.6-10.6 3895713084) T PROTEIN (test code = 7.9 g/dL 6.3-8.2 3159946176) ALBUMIN (test code = 4.1 g/dL 3.5-5.0 3548309178) ALK PHOS (test code = 619 U/L 34-122 H 1007896275) ALTv (test code = 99 U/L 5-35 H 1742-6) AST(SGOT) (test code = 97 U/L 13-40 H 9554693245) eGFR (test code = mL/min/1.73m2 4651473908) KIM (test code = KIM) Association of [...] tests). Lab Interpretation Abnormal (test code = 92900-0) [facility]ASE2021-[facility] 23:43:38 Test Item Value Reference Range Interpretation Comments LIPASE (test code = 3324305973) 182 U/L 0-220 Lab Interpretation (test code = Normal 38720-4) [facility] CenterCOVID[facility] (ID NOW RAPID TESTING)2020-10-04 23:39:59 Test Item Value Reference Range Interpretation Comments SARS-CoV-2 Rapid ID NOW Not Detected Not Detected (test code = 57622-1) KIM (test code = KIM) ID NOW COVID-19 Assay is an isothermal nucleic acid amplification test intended for the qualitative detection of nucleic acid from SARS-CoV-2 viral RNA in nasopharyngeal ([employer] MANAGER) specimens. It is used under Emergency Use [...] indicated. Lab Interpretation Normal (test code = 73678-2) [facility]URINALYSIS2021-06-22 23:36:26 Test Item Value Reference Range Interpretation Comments APPEARANCE (test code = Clear Clear 9457031602) COLOR (test code = Romelia Yellow A 4838868483) PH (test code = 4.8-8.0 0836762864) SP GRAVITY (test code = 1.003-1.030 2783279751) GLU U QUAL (test code = Normal Normal 1414939723) BLOOD (test code = Negative Negative 3200010371) KETONES (test code = Negative Negative 3855213033) PROTEIN (test code = Negative Negative 2887-8) UROBILIN (test code = 4.0 mg/dL Normal A 6758926199) BILIRUBIN (test code = Negative Negative 7945778395) NITRITE (test code = Negative Negative 5899499833) LEUK NICHOLE (test code = Negative Negative 2768513551) RBC/HPF (test code = See_Comment [Autom ated message] 3318203258) The system [employer] generated this result transmit gulshan reference range : 0 - 3 HPF. The refe rence range was not u sed to interpret th is result as normal/abnormal . WBC/HPF (test code = <1 See_Comment [Autom ated message] 5418195495) The system [employer] generated this result transmit gulshan reference range : 0 - 5 HPF. The refe rence range was not u sed to interpret th is result as normal/abnormal . BACTERIA (test code = Few Negative A 0895758835) MUCOUS (test code = Slight Negative LPF A 7620887168) SQ EPITH (test code = HPF 7701203294) Lab Interpretation (test Abnormal code = 80975-9) [facility] WITH [id number] 23:29:18 Test Item Value Reference Range Interpretation Comments WBC (test code = See_Comment L [Automated 8490-2) message] The [employer] stem which generated this result transmitted reference [...] RDW-SD (test code = 40.5 fL 39.0-49.9 55554-6) RDW-CV (test code = 12.2 % 12.0-15.5 788-0) PLT (test code = See_Comment [Automated 777-3) message] The sy stem which generated this result transmitted reference range : 166 - 358 10*3/ ?L. The reference r luca was not used to interpret this result as normal/abnormal . MPV (test code = 9.8 fL 9.5-12.9 97348-6) NRBC/100 WBC (test See_Comment [Automat ed code = 9935722729) message] The system which generated this result transmitted reference range : 0.0 - 10.0 /100 WBCs. The refer ence range was not u sed to interpret th is result as normal/abnormal . NRBC x10^3 (test code <0.01 See_Comment [Auto mated = 9193577284) message] The s ystem which generated this result transmitted reference range : 10*3/?L. The reference range was not used to interpret this result as normal/abnormal . GRAN MAT (NEUT) % 72.0 % (test code = 770-8) IMM GRAN % (test code 0.20 % = 6512834308) LYMPH % (test code = 19.8 % 736-9) MONO % (test code = 6.4 % 5905-5) EOS % (test code = 1.4 % 713-8) BASO % (test code = 0.2 % 706-2) GRAN MAT x10^3(ANC) 3.06 10*3/uL 1.88-7.09 (test code = [id number]) IMM GRAN x10^3 (test <0.03 0.00-0.06 code = [id number]) LYMPH x10^3 (test code 0.84 10*3/uL 1.32-3.29 L = 731-0) MONO x10^3 (test code 0.27 10*3/uL 0.33-0.92 L = 742-7) EOS x10^3 (test code = 0.06 10*3/uL 0.03-0.39 711-2) BASO x10^3 (test code <0.03 0.01-0.07 = 704-7) Lab Interpretation Abnormal (test code = 61664-0) [facility]OM[facility], [id number] 13:41:00Liver Protocol with ElastographyUnlisted Reason for Exam - Click Yes and Enter Reason Below->YesUnlisted Reason for Exam->History of liver fibrosis [facility] 1960 Sex: FFINAL REPORT TECHNIQUE: MRI [...] Saeed Verified Date/Time: 09/08/2020 13:41:30 Reading Location: [facility] B1 C013X Ortho Consult Reading Room PROTHROMBIN TIME/[id number] 04:34:00 Test Item Value Reference Range Interpretation Comments PROTIME (BEAKER) 11.7 seconds 11.9-14.2 L (test code = 759) INR (BEAKER) (test 0.88 See_Comment [Automat ed message] code = 370) The system [employer] generated this result transmitted ref erence range: <=5.90. The reference range was not used to int erpret this result as normal/abnormal . RECOMMENDED COUMADIN/WARFARIN INR THERAPY RANGESSTANDARD DOSE: 2.0 - 3.0 Includes: PROPHYLAXIS for venous thrombosis, systemic embolization; TREATMENT for venous thrombosis and/or pulmonary embolus.HIGH RISK: Target INR is 2.5-3.5 for patients with mechanical heart valves.BASIC METABOLIC [id number] 04:51:00 Test Item Value Reference Range Interpretation [...] S NOT APPLICABLE FOR DIALYSIS PATIEN TS. Podiatrist ID - ALAINA WHEPATIC FUNCTION [id number] 04:51:00 Test Item Value Reference Range Interpretation [...] code = 132 U/L 6-55 H 347) Podiatrist ID - ALAINA [id number] 04:51:00 Test Item Value Reference Range Interpretation Comments LIPASE (BEAKER) (test code = 749) 115 U/L 8-78 H Podiatrist ID - ALAINA WPROTHROMBIN TIME/[id number] 04:25:00 Test Item Value Reference Range Interpretation Comments PROTIME (BEAKER) 12.3 seconds 11.9-14.2 (test code = 759) INR (BEAKER) (test 0.94 See_Comment [Automat ed message] code = 370) The system [employer] generated this result transmitted ref erence range: <=5.90. The reference range was not used to int erpret this result as normal/abnormal . RECOMMENDED COUMADIN/WARFARIN INR THERAPY RANGESSTANDARD DOSE: 2.0 - 3.0 Includes: PROPHYLAXIS for venous thrombosis, systemic embolization; TREATMENT for venous thrombosis and/or pulmonary embolus.HIGH RISK: Target INR is 2.5-3.5 for patients with mechanical heart valves.JASMEET, [id number] 08:00:00INTRA OP IMAGIN Reason for exam:->ercp [facility] : 1960 Sex: FFluoroscopic unit utilized for a procedure performed in the OR. No interpretation was requested. Refer to the operative report for findings. Refer to PACS for patient radiation dose information.SARS-COV2/RT-PCR ([facility])2020-09-06 06:35:00 Test Item Value Reference Range Interpretation Comments SARS-COV2/RT-PCR (test Negative Not Detected, Negative, code = 2801618) See external report for linked test SARS-COV-2 PERFORMING LAB [facility] (test code = 3123941) Negative result for this test determines that [...] the Simms SARS-CoV-2 assay.Fact Sheet for Healthcare Providers:https://www.[facility].Gemmyo/bertha/RT_SAR B-BrZ-1_OIE_Xruw_Higso_89-176904.pdfFact Sheet for Healthcare Patients:https://www.[facility].Gemmyo/s al/NT_SGZS-RpQ-2_Xnlamaf_Ifzg_Ubpze_KR_34-624140M9.pdfPerforming Laboratory:[facility] [place] [address] PROTHROMBIN TIME/[id number] 04:41:00 Test Item Value Reference Range Interpretation Comments PROTIME (BEAKER) 12.4 seconds 11.9-14.2 (test code = 759) INR (BEAKER) (test 0.95 See_Comment [Automat ed message] code = 370) The system [employer] generated this result transmitted ref erence range: <=5.90. The reference range was not used to int erpret this result as normal/abnormal . RECOMMENDED COUMADIN/WARFARIN INR THERAPY RANGESSTANDARD DOSE: 2.0 - 3.0 Includes: PROPHYLAXIS for venous thrombosis, systemic embolization; TREATMENT for venous thrombosis and/or pulmonary embolus.HIGH RISK: Target INR is 2.5-3.5 for patients with mechanical heart valves.[id number] 14:40:00 Test Item Value Reference Range Interpretation Comments MAGNESIUM (BEAKER) 1.9 mg/dL 1.6-2.6 Specimen slightly (test code = 627) hemolyzed Podiatrist HONG - [place] FBASIC METABOLIC [id number] 14:40:00 Test Item Value Reference Range Interpretation [...] S NOT APPLICABLE FOR DIALYSIS PATIEN TS. Podiatrist ID Ryan NEGRON FHEPATIC FUNCTION [id number] 14:40:00 Test Item Value Reference Range Interpretation [...] Specimen slightly (test code = 347) hemolyzed Podiatrist ID Ryan NEGRON [id number] 14:40:00 Test Item Value Reference Range Interpretation Comments LIPASE (BEAKER) (test code = 749) 446 U/L 8-78 H Podiatrist ID Ryan NEGRON FCBC W/PLT COUNT & AUTO [id number] 14:14:00 Test Item Value Reference Range Interpretation [...] PERCENT (BEAKER) (test code = 2801) [place], [id number] 08:35:00Reason for exam:->abnormal imaging [facility] : 1960 Sex: FFluoroscopic unit utilized for a procedure performed in the OR. No interpretation was requested. Refer to the operative report for findings. Refer to PACS for patient radiation dose information.[id number] 06:42:00 Test Item Value Reference Range Interpretation Comments MAGNESIUM (BEAKER) (test code = 1.8 mg/dL 1.6-2.6 627) Podiatrist ID - [id number] 06:42:00 Test Item Value Reference Range Interpretation Comments PHOSPHORUS (BEAKER) (test code = 3.4 mg/dL 2.3-4.7 604) Podiatrist ID - EDASIHEPATIC FUNCTION [id number] 06:42:00 Test Item Value Reference Range Interpretation [...] code = 89 U/L 6-55 H 347) Podiatrist ID - EDASIBASIC METABOLIC [id number] 06:42:00 Test Item Value Reference Range Interpretation [...] S NOT APPLICABLE FOR DIALYSIS PATIEN TS. Podiatrist ID - EDASICBC W/PLT COUNT & AUTO [id number] 05:27:00 Test Item Value Reference Range Interpretation [...] (BEAKER) (test code = 2801) SARS-COV2/RT-PCR ([facility])2020-08-26 12:43:00 Test Item Value Reference Range Interpretation Comments SARS-COV2/RT-PCR (test Negative Not Detected, Negative, code = 1666066) See external report for linked test SARS-COV-2 PERFORMING LAB [facility] (test code = 1385299) Negative result for this test determines that [...] of the Act.Fact Sheet for Healthcare Prov iders:https://www.[employer]/sites/default/files/product/documents/Fact_Sheet_HC _Hnnhuecoh_Pgek_DTUQ-NfG-6.pdfFact Sheet for Healthcare Patients:https://www.[employer]/sites/default/files/product/docume nts/Wmvc_Mdugb_Givuvjpi_Bnou_YFLV-NuT-0.pdfPerforming Laboratory:[facility] [place], [place] [address]BPWMR METABOLIC PANEL 2020-08-26 06:19:00 Test Item Value [...] S NOT APPLICABLE FOR DIALYSIS PATIEN TS. Podiatrist ID - PISURJIT [id number] 06:19:00 Test Item Value Reference Range Interpretation Comments MAGNESIUM (BEAKER) (test code = 1.8 mg/dL 1.6-2.6 627) Podiatrist ID - DONNA LHEPATIC FUNCTION [id number] 06:19:00 Test Item Value Reference Range Interpretation [...] code = 82 U/L 6-55 H 347) Podiatrist ID - DONNA LCBC W/PLT COUNT & AUTO [id number] 05:37:00 Test Item Value Reference Range Interpretation [...] images do not require a Radiology diagnostic report.[facility] TIME OR (NON-REPORTABLE)2020-07-18 13:25:02These images do not require a Radiology diagnostic report.[facility] GLUCOSE (AUTOMATED) 2020-07-18 12:07:46 Test Item Value Reference Range Interpretation Comments POCT GLU (test code = 5364961680) 98 mg/dL 70-110 Lab Interpretation (test code = Normal 01225-0) [facility] GLUCOSE (AUTOMATED)2020-07-18 12:07:46 Test Item Value Reference Range Interpretation Comments POCT GLU (test code = 4127657029) 98 mg/dL 70-110 Lab Interpretation (test code = Normal 84866-5) [facility]CT [facility]BDOMEN PELVIS W [id number] 01:39:22 1. ?No acute obstruction or inflammation [...] There is abundant stool throughoutthe colon.RL: [address] [facility] HospitalKAROLINELisa [id number] 00:55:45 Test Item Value Reference Range Interpretation Comments TROPONIN I (test 0.002 ng/mL See_Comment [Automated code = 4790545513) message] The system which generated this result [...] ? Lab Interpretation Normal (test code = 12746-8) [facility] CenterCOVID[facility] (ID NOW RAPID TESTING)2020-07-08 00:47:04 Test Item Value Reference Range Interpretation Comments SARS-CoV-2 Rapid ID NOW Not Detected Not Detected (test code = 89805-7) KIM (test code = KIM) ID NOW COVID-19 Assay is an isothermal nucleic acid amplification test intended for the qualitative detection of nucleic acid from SARS-CoV-2 viral RNA in nasopharyngeal (HOSTEL MANAGER) specimens. It is used under Emergency Use [...] indicated. Lab Interpretation Normal (test code = 30955-5) [facility] CenterMAGNESIUM2021-03-26 00:45:06 Test Item Value Reference Range Interpretation Comments MAGNESIUM (test code = 1287111181) 2.0 mg/dL 1.7-2.4 Lab Interpretation (test code = Normal 04594-7) [facility]. METABOLIC PANEL (73458)2020-07-08 00:44:41 Test Item Value Reference Range Interpretation Comments NA (test code = 139 mmol/L 135-145 0000304937) K (test code = 4.4 mmol/L 3.5-5.0 7431654192) CL (test code = 108 mmol/L 98-108 2968804352) CO2 TOTAL (test code = 23 mmol/L 23-31 0769894102) AGAP (test code = 2-16 5890264005) BUN (test code = 22 mg/dL 7-23 1767015078) GLUCOSE (test code = 107 mg/dL 70-110 9235967230) CREATININE (test code = 0.62 mg/dL 0.50-1.04 4284916592) TOTAL BILI (test code = 0.9 mg/dL 0.1-1.3 9794813463) CALCIUM (test code = 10.0 mg/dL 8.6-10.6 2774076053) T PROTEIN (test code = 8.3 g/dL 6.3-8.2 H 5341652575) ALBUMIN (test code = 4.8 g/dL 3.5-5.0 7201649612) ALK PHOS (test code = 1085 U/L 34-122 H 9345517682) ALTv (test code = 383 U/L 5-35 H 1742-6) AST(SGOT) (test code = 217 U/L 13-40 H 5809660986) eGFR Calculation mL/min/1.73m2 (Non-) (test code = 5693935447) eGFR Calculation mL/min/1.73m2 () (test code = 8578422811) KIM (test code = KIM) Association of [...] tests). Lab Interpretation Abnormal (test code = 61439-9) [facility] CenterLIPASE2021-03-26 00:44:41 Test Item Value Reference Range Interpretation Comments LIPASE (test code = 6202530513) 131 U/L 0-220 Lab Interpretation (test code = Normal 58530-4) [facility] CenterURINALYSIS2021-03-26 00:38:06 Test Item Value Reference Range Interpretation Comments APPEARANCE (test code = Clear Clear 9276784041) COLOR (test code = Yellow Yellow 2359722183) PH (test code = 4.8-8.0 5492324747) SP GRAVITY (test code = 1.003-1.030 3082054771) GLU U QUAL (test code = Normal Normal 8570095779) BLOOD (test code = Negative Negative 7021970327) KETONES (test code = Negative Negative 0509123248) PROTEIN (test code = Negative Negative 2887-8) UROBILIN (test code = 4.0 mg/dL Normal A 6789198929) BILIRUBIN (test code = Negative Negative 1465566982) NITRITE (test code = Negative Negative 5529907002) LEUK NICHOLE (test code = Negative Negative 6317942100) RBC/HPF (test code = <1 See_Comment [Autom ated message] 2311455906) The system [employer] generated this result transmit gulshan reference range : 0 - 3 HPF. The refe rence range was not u sed to interpret th is result as normal/abnormal . WBC/HPF (test code = See_Comment [Autom ated message] 0624913872) The system [employer] generated this result transmit gulshan reference range : 0 - 5 HPF. The refe rence range was not u sed to interpret th is result as normal/abnormal . BACTERIA (test code = Few Negative A 2027104162) MUCOUS (test code = Slight Negative LPF A 0260392836) SQ EPITH (test code = HPF 7834146421) Lab Interpretation (test Abnormal code = 43392-4) [facility] WITH [id number] 00:32:00 Test Item Value Reference Range Interpretation Comments WBC (test code = See_Comment [Automated 4190-2) message] The sy stem which generated this result transmitted reference range : 4.30 - 11.10 10*3/?L. The reference range was not used to interpret this result as normal/abnormal . RBC (test code = See_Comment [Automated 669-8) message] The sy stem which generated this [...] RDW-SD (test code = 48.1 fL 39.0-49.9 75529-8) RDW-CV (test code = 14.5 % 12.0-15.5 788-0) PLT (test code = See_Comment [Automated 777-3) message] The sy stem which generated this result transmitted reference range : 166 - 358 10*3/ ?L. The reference r luca was not used to interpret this result as normal/abnormal . MPV (test code = 9.5 fL 9.5-12.9 28766-8) NRBC/100 WBC (test See_Comment [Automat ed code = 5866312378) message] The system which generated this result transmitted reference range : 0.0 - 10.0 /100 WBCs. The refer ence range was not u sed to interpret th is result as normal/abnormal . NRBC x10^3 (test code <0.01 See_Comment [Auto mated = 1725220120) message] The s ystem which generated this result transmitted reference range : 10*3/?L. The reference range was not used to interpret this result as normal/abnormal . GRAN MAT (NEUT) % 78.2 % (test code = 770-8) IMM GRAN % (test code 0.60 % = 5483926175) LYMPH % (test code = 11.9 % 736-9) MONO % (test code = 8.3 % 5905-5) EOS % (test code = 0.5 % 713-8) BASO % (test code = 0.5 % 706-2) GRAN MAT x10^3(ANC) 7.55 10*3/uL 1.88-7.09 H (test code = 6101961999) IMM GRAN x10^3 (test 0.06 10*3/uL 0.00-0.06 code = 7941903089) LYMPH x10^3 (test code 1.15 10*3/uL 1.32-3.29 L = 731-0) MONO x10^3 (test code 0.80 10*3/uL 0.33-0.92 = 742-7) EOS x10^3 (test code = 0.05 10*3/uL 0.03-0.39 711-2) BASO x10^3 (test code 0.05 10*3/uL 0.01-0.07 = 704-7) Lab Interpretation Abnormal (test code = 55278-3) [facility] TIME OR (NON-REPORTABLE)2020-07-04 13:40:03 These images do not require a Radiology diagnostic report.[facility] TIME OR (NON-REPORTABLE)2020-06-20 14:58:12These images do not require a Radiology diagnostic report.[facility] Metabolic Panel (NA, K, CL, CO2, GLUCOSE, BUN, CREATININE, CA)2020-05-06 23:29:00 Test Item Value Reference Range Interpretation Comments NA (test code = 138 mmol/L 135-145 9600325626) K (test code = 4.4 mmol/L 3.5-5 6790540614) CL (test code = 108 mmol/L 98-108 2566699476) CO2 TOTAL (test code = 20 mmol/L 23-31 L 0279228581) AGAP (test code = 2-16 5143885587) BUN (test code = 18 mg/dL 7-23 3173177387) GLUCOSE (test code = 90 mg/dL 70-110 4548802006) CREATININE (test code = 0.68 mg/dL 0.5-1.04 7709860832) CALCIUM (test code = 9.1 mg/dL 8.6-10.6 6125536029) eGFR Calculation mL/min/1.73m2 (Non-) (test code = 9749810879) eGFR Calculation mL/min/1.73m2 () (test code = 9821562437) KIM (test code = KIM) Association of [...] tests). Lab Interpretation Abnormal (test code = 20798-2) [facility] CenterHepatic Function Panel (ALB, T.PRO, BILI T, BU/BC, ALT, AST, ALK PHOS)2020-05-06 23:28:00 Test Item Value Reference Range Interpretation Comments TOTAL BILI (test code = 9834090832) 1.1 mg/dL 0.1-1.1 BILI UNCON (test code = 5855422543) 0.4 mg/dL 0.1-1.1 BILI CONJ (test code = 7329628809) 0.0 mg/dL 0-0.3 T PROTEIN (test code = 4990374236) 7.9 g/dL 6.3-8.2 ALBUMIN (test code = 2692203501) 4.4 g/dL 3.5-5 ALK PHOS (test code = 4391290323) 984 U/L 34-122 H ALTv (test code = 1742-6) 218 U/L 5-35 H AST(SGOT) (test code = 2385905368) 133 U/L 13-40 H Lab Interpretation (test code = Abnormal 26199-5) [facility] CenterTroponin [id number] 22:19:00 Test Item Value Reference Range Interpretation Comments TROPONIN I (test 0.021 ng/mL See_Comment [Automated code = 5596099825) message] The system which generated this result [...] ? Lab Interpretation Normal (test code = 30348-2) [facility] CenterCOVID[facility] (ID NOW RAPID TESTING)2020-05-06 22:13:00 Test Item Value Reference Range Interpretation Comments SARS-CoV-2 Rapid ID NOW Not Detected Not Detected (test code = 21418-4) KIM (test code = KIM) ID NOW COVID-19 Assay is an isothermal nucleic acid amplification test intended for the qualitative detection of nucleic acid from SARS-CoV-2 viral RNA in nasopharyngeal (HOSTEL MANAGER) specimens. It is used under Emergency Use [...] indicated. Lab Interpretation Normal (test code = 56014-0) [facility] CenterUrinalysis2021-01-22 22:09:00 Test Item Value Reference Range Interpretation Comments APPEARANCE (test code = Clear Clear 0867329783) COLOR (test code = Yellow Yellow 6823289946) PH (test code = 4.8-8.0 8722431004) SP GRAVITY (test code = 1.003-1.030 1715332127) GLU U QUAL (test code = Normal Normal 3016743631) BLOOD (test code = Negative Negative INTERFERE NCE FROM 5559040740) ASCORBIC ACID M AY CAUSE FALSE NEG ATIVE RESULT KETONES (test code = Negative Negative 5773383829) PROTEIN (test code = Negative Negative 2887-8) UROBILIN (test code = 2.0 mg/dL Normal A 6950492857) BILIRUBIN (test code = Negative Negative 9237805667) NITRITE (test code = Negative Negative 7450825400) LEUK NICHOLE (test code = Negative Negative 3986587028) RBC/HPF (test code = See_Comment [Autom ated message] 3427842124) The system [employer] generated this result transmitted ref erence range: 0 - 3 HP F. The reference range was not used to int erpret this result as normal/abnormal . WBC/HPF (test code = See_Comment [Autom ated message] 5950282096) The system [employer] generated this result transmitted ref erence range: 0 - 5 HP F. The reference range was not used to int erpret this result as normal/abnormal . BACTERIA (test code = Few Negative A 1502789327) SQ EPITH (test code = HPF 0577956168) HYAL CAST (test code = See_Comment [Aut omated message] 1274094972) The system [employer] generated this result transmitted ref erence range: <=2 LPF. The reference range was not used to int erpret this result as normal/abnormal . Lab Interpretation Abnormal (test code = 70939-1) [facility] CenterLipase [id number] 22:08:00 Test Item Value Reference Range Interpretation Comments LIPASE (test code = 1506553517) 114 U/L 0-220 Lab Interpretation (test code = Normal 65802-3) [facility] with [id number] 22:02:00 Test Item Value Reference Range Interpretation [...] RDW-SD (test code = 41.0 fL 39-49.9 78844-6) RDW-CV (test code = 12.4 % 12-15.5 788-0) PLT (test code = See_Comment [Automated 777-3) message] The sy stem which generated this result transmitted reference range : 166 - 358 10*3/ ?L. The reference r luca was not used to interpret this result as normal/abnormal . MPV (test code = 10.5 fL 9.5-12.9 47573-1) NRBC/100 WBC (test See_Comment [Automat ed code = 1655783172) message] The system which generated this result transmitted reference range : 0.0 - 10.0 /100 WBCs. The refer ence range was not u sed to interpret th is result as normal/abnormal . NRBC x10^3 (test code <0.01 See_Comment [Auto mated = 5627085120) message] The s ystem which generated this result transmitted reference range : 10*3/?L. The reference range was not used to interpret this result as normal/abnormal . GRAN MAT (NEUT) % 71.8 % (test code = 770-8) IMM GRAN % (test code 0.10 % = 4270677742) LYMPH % (test code = 19.0 % 736-9) MONO % (test code = 6.2 % 5905-5) EOS % (test code = 2.2 % 713-8) BASO % (test code = 0.7 % 706-2) GRAN MAT x10^3(ANC) 4.83 10*3/uL 1.88-7.09 (test code = 5894987799) IMM GRAN x10^3 (test <0.03 0-0.06 code = 4478373395) LYMPH x10^3 (test code 1.28 10*3/uL 1.32-3.29 L = 731-0) MONO x10^3 (test code 0.42 10*3/uL 0.33-0.92 = 742-7) EOS x10^3 (test code = 0.15 10*3/uL 0.03-0.39 711-2) BASO x10^3 (test code 0.05 10*3/uL 0.01-0.07 = 704-7) Lab Interpretation Abnormal (test code = 66597-8) [facility] 1 [id number] 21:48:28Findings and Impression: ?Subcentimeter calcified granuloma projecting overthe right upper lobe, unchanged. Lungs are otherwise clear. No pleuraleffusion or pneumothorax. Heart size is normal to mildlyenlarged. No acuteosseous abnormalities. PORTABLE CHEST RADIOGRAPH History: chest tightness Comparison: 01/31/2020 TECHNIQUE: AP view of the chest. Msmb, Radiant Results Inft User - 05/06/2020 3:49 PM C STPORTABLE CHEST RADIOGRAPHHistory: chest tightness Comparison: 01/31/2020TECHNIQUE: AP view of the chest.IMPRESSIONFindings and Impression: Subcentimeter calcified granuloma projecting overthe right upper lobe, unchanged. Lungs are otherwise clear. No pleuraleffusion or pneumothorax. Heart size is normal to mildly enlarged. No acuteosseous abnormalities.[facility] CenterUrinalysis2020-12-12 05:27:00 Test Item Value Reference Range Interpretation Comments APPEARANCE (test code Slightly Cloudy Clear A = 8884811108) COLOR (test code = Yellow Yellow 9116425159) PH (test code = 4.8-8.0 8074989516) SP GRAVITY (test code >=1.030 1.003-1.030 = 3368606963) GLU U QUAL (test code Negative Negative = 5211085357) BLOOD (test code = Trace Negative A 6110023405) KETONES (test code = Negative Negative 3547987592) PROTEIN (test code = Negative Negative 2887-8) UROBILIN (test code = 1.0 mg/dL See_Comment [Auto mated 2314147384) message] The system which generated this result transmit gulshan reference range : 0-1.0 mg/dL. Th e reference range was not used to interpret this result as normal/abnormal . BILIRUBIN (test code Small Negative A = 3577143145) NITRITE (test code = Negative Negative 6664984125) LEUK NICHOLE (test code Trace Negative A = 6796261570) RBC/HPF (test code = See_Comment [Autom ated 1499988020) message] The system which generated this result transmit gulshan reference range : 0 - 3 HPF. The reference range was not used to interpret this result as normal/abnormal . WBC/HPF (test code = See_Comment [Autom ated 6841864421) message] The system which generated this result transmit gulshan reference range : 0 - 5 HPF. The reference range was not used to interpret this result as normal/abnormal . BACTERIA (test code = Few Negative A 3927934805) AMORPHOUS (test code Few Rare HPF A = 8360954650) SQ EPITH (test code = HPF 9494894625) Lab Interpretation Abnormal (test code = 76489-3) [facility] CenterC[facility] (ID NOW RAPID TESTING)2020-03-26 04:39:00 Test Item Value Reference Range Interpretation Comments SARS-CoV-2 Rapid ID NOW Not Detected Not Detected (test code = 29094-5) KIM (test code = KIM) ID NOW COVID-19 Assay is an isothermal nucleic acid amplification test intended for the qualitative detection of nucleic acid from SARS-CoV-2 viral RNA in nasopharyngeal (HOSTEL MANAGER) specimens. It is used under Emergency Use [...] indicated. Lab Interpretation Normal (test code = 15690-0) [facility] CenterComplete Metabolic [id number] 04:12:00 Test Item Value Reference Range Interpretation Comments NA (test code = 139 mmol/L 135-145 7295847763) K (test code = 4.5 mmol/L 3.5-5 4034665806) CL (test code = 108 mmol/L 98-108 7529156786) CO2 TOTAL (test code = 22 mmol/L 23-31 L 9772484677) AGAP (test code = 2-16 8717546591) BUN (test code = 17 mg/dL 7-23 5226520915) GLUCOSE (test code = 102 mg/dL 70-110 1060349158) CREATININE (test code = 0.96 mg/dL 0.5-1.04 8618620582) TOTAL BILI (test code = 0.7 mg/dL 0.1-1.6 6462267249) CALCIUM (test code = 9.3 mg/dL 8.6-10.6 4604340715) T PROTEIN (test code = 7.3 g/dL 6.3-8.2 4957529713) ALBUMIN (test code = 4.1 g/dL 3.5-5 6365403576) ALK PHOS (test code = 675 U/L 34-122 H 6765337855) ALTv (test code = 115 U/L 5-35 H 1742-6) AST(SGOT) (test code = 100 U/L 13-40 H 1922157679) eGFR Calculation mL/min/1.73m2 (Non-) (test code = 0158794395) eGFR Calculation mL/min/1.73m2 () (test code = 7700051277) KIM (test code = KIM) Association of [...] tests). Lab Interpretation Abnormal (test code = 32364-2) [facility] CenterLipase, [id number] 04:11:00 Test Item Value Reference Range Interpretation Comments LIPASE (test code = 7341722848) 171 U/L 0-220 Lab Interpretation (test code = Normal 32285-5) [facility] CenterCB with Hpssyqtvxxzz4168-17-50 03:56:00 Test Item Value Reference Range Interpretation Comments WBC (test code = See_Comment [Automated 2811-2) message] The sy stem which generated this result transmitted reference range : 4.30 - 11.10 10*3/?L. The reference range was not used to interpret this result as normal/abnormal . RBC (test code = See_Comment L [Automated 949-8) message] The sy stem which [...] RDW-SD (test code = 47.5 fL 39-49.9 90887-2) RDW-CV (test code = 13.3 % 12-15.5 788-0) PLT (test code = See_Comment [Automated 777-3) message] The sy stem which generated this result transmitted reference range : 166 - 358 10*3/ ?L. The reference r luca was not used to interpret this result as normal/abnormal . MPV (test code = 9.4 fL 9.5-12.9 L 92221-1) NRBC/100 WBC (test See_Comment [Automat ed code = 1514405094) message] The system which generated this result transmitted reference range : 0.0 - 10.0 /100 WBCs. The refer ence range was not u sed to interpret th is result as normal/abnormal . NRBC x10^3 (test code <0.01 See_Comment [Auto mated = 6205682921) message] The s ystem which generated this result transmitted reference range : 10*3/?L. The reference range was not used to interpret this result as normal/abnormal . GRAN MAT (NEUT) % 67.1 % (test code = 770-8) IMM GRAN % (test code 0.70 % = 7598270537) LYMPH % (test code = 22.2 % 736-9) MONO % (test code = 6.4 % 5905-5) EOS % (test code = 2.9 % 713-8) BASO % (test code = 0.7 % 706-2) GRAN MAT x10^3(ANC) 3.69 10*3/uL 1.88-7.09 (test code = 1253249455) IMM GRAN x10^3 (test 0.04 10*3/uL 0-0.06 code = 7127749520) LYMPH x10^3 (test code 1.22 10*3/uL 1.32-3.29 L = 731-0) MONO x10^3 (test code 0.35 10*3/uL 0.33-0.92 = 742-7) EOS x10^3 (test code = 0.16 10*3/uL 0.03-0.39 711-2) BASO x10^3 (test code 0.04 10*3/uL 0.01-0.07 = 704-7) Lab Interpretation Abnormal (test code = 62763-9) [facility] [id number] 17:24:06 Impression: 1. ?Normal MRI brain. 2. [...] do not demonstrate any evidence of intracranialhemorrhage. [facility], Radiant Results Inft User - 02/08/2020 12:25 [...] MRI brain.2. Mastoid effusions.3. Right petrous apex effusion.[facility] CULTURE [id number] 21:10:00 Test Item Value Reference Range Interpretation Comments Blood Culture-Aerobic Culture positive. No growth AA P revious (test code = 58665-0) See Blood Culture p reliminary Workup for verified result additional was Culture In information. Progress on 02/02/2020 at 1901 CDT Blood No organisms No growth Previous Culture-Anaerobic isolated preliminar y (test code = 21518-7) verifi ed result was Culture In Progress on 02/03/2020 at 1314 CDT Lab Interpretation Abnormal (test code = 77975-9) [facility] CULTURE [id number] 21:01:00 Test Item Value Reference Range Interpretation Comments Blood Culture-Aerobic No organisms No growth Previo us (test code = 67283-8) isolated prelim inary verified result was Culture [...] Culture-Anaerobic isolated preliminar y (test code = 81958-9) verifi ed result was Culture In Progress [...] CDT Lab Interpretation Normal (test code = 51593-2) [facility] (NA, K, CL, CO2, GLUCOSE, BUN, CREATININE, CA)2020-02-07 09:09:00 Test Item Value Reference Range Interpretation Comments NA (test code = 136 mmol/L 135-145 0288860345) K (test code = 4.3 mmol/L 3.5-5 Slight hemoly sis 2218820444) CL (test code = 104 mmol/L 98-108 4526715985) CO2 TOTAL (test 26 mmol/L 23-31 code = 6696657080) AGAP (test code = 2-16 2824704420) BUN (test code = 12 mg/dL 7-23 Slight hemo lysis 4210956398) GLUCOSE (test code 98 mg/dL 70-110 = 2372083333) CREATININE (test 0.50 mg/dL 0.5-1.04 code = 3007061383) CALCIUM (test code 8.9 mg/dL 8.6-10.6 = 9878917573) eGFR Calculation mL/min/1.73m2 (Non-) (test code = 0967545567) eGFR Calculation mL/min/1.73m2 () (test code = 0243695512) KIM (test code = Association of KIM) [...] or urine or abnormalities in imaging tests). [facility] WITH [id number] 08:58:00 Test Item Value Reference Range Interpretation [...] RDW-SD (test code = 48.5 fL 39-49.9 03298-8) RDW-CV (test code = 13.9 % 12-15.5 788-0) PLT (test code = See_Comment [Automated 777-3) message] The sy stem which generated this result transmitted reference range : 166 - 358 10*3/ ?L. The reference r luca was not used to interpret this result as normal/abnormal . MPV (test code = 9.1 fL 9.5-12.9 L 75724-9) NRBC/100 WBC (test See_Comment [Automat ed code = 5442296604) message] The system which generated this result transmitted reference range : 0.0 - 10.0 /100 WBCs. The refer ence range was not u sed to interpret th is result as normal/abnormal . NRBC x10^3 (test code <0.01 See_Comment [Auto mated = 5074028595) message] The s ystem which generated this result transmitted reference range : 10*3/?L. The reference range was not used to interpret this result as normal/abnormal . GRAN MAT (NEUT) % 69.8 % (test code = 770-8) IMM GRAN % (test code 0.40 % = 3917790567) LYMPH % (test code = 21.9 % 736-9) MONO % (test code = 6.7 % 5905-5) EOS % (test code = 0.8 % 713-8) BASO % (test code = 0.4 % 706-2) GRAN MAT x10^3(ANC) 3.66 10*3/uL 1.88-7.09 (test code = 9175585146) IMM GRAN x10^3 (test <0.03 0-0.06 code = 2428373384) LYMPH x10^3 (test code 1.15 10*3/uL 1.32-3.29 L = 731-0) MONO x10^3 (test code 0.35 10*3/uL 0.33-0.92 = 742-7) EOS x10^3 (test code = 0.04 10*3/uL 0.03-0.39 711-2) BASO x10^3 (test code <0.03 0.01-0.07 = 704-7) Lab Interpretation Abnormal (test code = 37223-1) [facility] MUSCLE AB,IGG [id number] 15:17:00 Test Item Value Reference Range Interpretation Comments F-ACTIN (SMOOTH See_Comment If F-Actin (Smooth Muscle) MUSCLE) AB, Antibody, IgG i s negative, IGG(BEAKER) (test the Smooth Muscle Antibody code = 50049-3) titer by IFA is not performed.REFER ENCE [...] for A IH is strong.Performe d By: [facility] [address] [place], [place] [address]Vvdsmwmixp Director: Praveena Mantilla MD [Automated mess age] The system which ge nerated this result transmit gulshan reference range : 0 - 19 Units. The refe rence range was not used to interpret this result as normal/abnormal . [facility] CenterMITOCHONDRIAL M2 AB, [id number] 00:28:00 Test Item Value Reference Range Interpretation Comments AMA (test code = See_Comment H REFERENCE I NTERVAL: 16319-0) Mitochondrial ( M2) Antibody, IgG ? ?20.0 [...] does not rule out PBC.Perform ed By: [facility] [address] [place], [place] [address]Ppmklwxwqg Director: Praveena Mantilla MD [Aut omated message] The sy stem which generated this result transmit gulshan reference range : 0.0 - 24.9 Units. The reference range was not used to int erpret this result as normal/abnormal . Lab Interpretation Abnormal (test code = 63433-8) [facility] CULTURE [id number] 17:01:00 Test Item Value Reference Range Interpretation Comments Blood Culture-Aerobic No organisms No growth Previo us (test code = 73444-7) isolated prelim inary verified result was Culture [...] Culture-Anaerobic isolated preliminar y (test code = 16470-5) verifi ed result was Culture In Progress [...] CDT Lab Interpretation Normal (test code = 61979-1) [facility] CULTURE [id number] 14:01:00 Test Item Value Reference Range Interpretation Comments Blood Culture Coagulase negative Addition al Workup (test Staphylococcus work-up perfo rmed code = 600-7) only per reque st. Culture plate(s ) will be saved until this date : - 02/10/20 Gram stain Isolated from aerobic (test code = bottle Gram positive 664-3) cocci [facility]. METABOLIC PANEL (21356)2020-02-05 09:59:00 Test Item Value Reference Range Interpretation Comments NA (test code = 140 mmol/L 135-145 0161374253) K (test code = 3.7 mmol/L 3.5-5 0669106409) CL (test code = 107 mmol/L 98-108 0013457051) CO2 TOTAL (test code = 25 mmol/L 23-31 4708538789) AGAP (test code = 2-16 9798250632) BUN (test code = 11 mg/dL 7-23 7559148833) GLUCOSE (test code = 90 mg/dL 70-110 9168467104) CREATININE (test code = 0.58 mg/dL 0.5-1.04 7801545085) TOTAL BILI (test code = 0.9 mg/dL 0.1-1.5 9484368308) CALCIUM (test code = 8.9 mg/dL 8.6-10.6 7625352678) T PROTEIN (test code = 6.7 g/dL 6.3-8.2 4684268455) ALBUMIN (test code = 3.5 g/dL 3.5-5 2052129837) ALK PHOS (test code = 518 U/L 34-122 H 5152291820) ALTv (test code = 84 U/L 5-35 H 1742-6) AST(SGOT) (test code = 49 U/L 13-40 H 2553796452) eGFR Calculation mL/min/1.73m2 (Non-) (test code = 9916702298) eGFR Calculation mL/min/1.73m2 () (test code = 0241644656) KIM (test code = KIM) Association of [...] tests). Lab Interpretation Abnormal (test code = 56229-0) [facility] WITH [id number] 09:43:00 Test Item Value Reference Range Interpretation [...] RDW-SD (test code = 48.1 fL 39-49.9 69223-3) RDW-CV (test code = 13.4 % 12-15.5 788-0) PLT (test code = See_Comment [Automated 777-3) message] The sy stem which generated this result transmitted reference range : 166 - 358 10*3/ ?L. The reference r luca was not used to interpret this result as normal/abnormal . MPV (test code = 8.7 fL 9.5-12.9 L 49606-6) NRBC/100 WBC (test See_Comment [Automat ed code = 6012991067) message] The system which generated this result transmitted reference range : 0.0 - 10.0 /100 WBCs. The refer ence range was not u sed to interpret th is result as normal/abnormal . NRBC x10^3 (test code <0.01 See_Comment [Auto mated = 7113317057) message] The s ystem which generated this result transmitted reference range : 10*3/?L. The reference range was not used to interpret this result as normal/abnormal . GRAN MAT (NEUT) % 68.3 % (test code = 770-8) IMM GRAN % (test code 0.20 % = 0520652127) LYMPH % (test code = 24.2 % 736-9) MONO % (test code = 5.5 % 5905-5) EOS % (test code = 1.4 % 713-8) BASO % (test code = 0.4 % 706-2) GRAN MAT x10^3(ANC) 3.47 10*3/uL 1.88-7.09 (test code = 5870529788) IMM GRAN x10^3 (test <0.03 0-0.06 code = 8374743169) LYMPH x10^3 (test code 1.23 10*3/uL 1.32-3.29 L = 731-0) MONO x10^3 (test code 0.28 10*3/uL 0.33-0.92 L = 742-7) EOS x10^3 (test code = 0.07 10*3/uL 0.03-0.39 711-2) BASO x10^3 (test code <0.03 0.01-0.07 = 704-7) Lab Interpretation Abnormal (test code = 68614-3) [facility] CERVICAL SPINE WO [id number] 05:59:37 Mild degenerative changes most pronounced at C5-C6 and C6-C7 as above. RL: 460 AFC: [id number] Ordering physician: GET AGUILLON INDICATION: Neck pain, [...] at C5-C6 and C6-C7 as above.RL: 460AFC: [id number] signed by Minal Vaughan MD, PhD at 02/05/2020 12:59 AMUnMet[facility] HospitalOCCULT (GUAIAC) [id number] 14:40:00 Test Item Value Reference Range Interpretation Comments Occult (guaiac) Blood (test code = Negative Negative 2335-8) Lab Interpretation (test code = Normal 13615-0) [facility] [id number] 10:32:00 Test Item Value Reference Range Interpretation Comments NT-proBNP (test code 403 pg/mL See_Comment H [Autom ated = 7890714556) message] The system which generated this result transmitted reference range : <=125. The reference range was not used to interpret this result as normal/abnormal . KIM (test code = KIM) Biotin has been reported to cause a negative bias, interpret results relative to patient's use of biotin. Lab Interpretation Abnormal (test code = 57086-0) [facility]. METABOLIC PANEL (20387)2020-02-04 10:24:00 Test Item Value Reference Range Interpretation Comments NA (test code = 138 mmol/L 135-145 9600485793) K (test code = 3.7 mmol/L 3.5-5 3166022174) CL (test code = 106 mmol/L 98-108 3148409549) CO2 TOTAL (test code = 27 mmol/L 23-31 0246837355) AGAP (test code = 2-16 8990313010) BUN (test code = 9 mg/dL 7-23 9339253081) GLUCOSE (test code = 105 mg/dL 70-110 1694218951) CREATININE (test code = 0.59 mg/dL 0.5-1.04 5198443293) TOTAL BILI (test code = 0.9 mg/dL 0.1-1.2 2867779641) CALCIUM (test code = 9.0 mg/dL 8.6-10.6 9585049422) T PROTEIN (test code = 6.4 g/dL 6.3-8.2 6128003395) ALBUMIN (test code = 3.2 g/dL 3.5-5 L 4877213617) ALK PHOS (test code = 486 U/L 34-122 H 3264018769) ALTv (test code = 91 U/L 5-35 H 1742-6) AST(SGOT) (test code = 41 U/L 13-40 H 9441263957) eGFR Calculation mL/min/1.73m2 (Non-) (test code = 6977604456) eGFR Calculation mL/min/1.73m2 () (test code = 0604488419) KIM (test code = KIM) Association of [...] tests). Lab Interpretation Abnormal (test code = 84945-1) [facility] CenterMAGN[facility]IUM2020-10-22 10:24:00 Test Item Value Reference Range Interpretation Comments MAGNESIUM (test code = 5348127202) 1.8 mg/dL 1.7-2.4 Lab Interpretation (test code = Normal 58698-0) [facility] with [id number] 10:11:00 Test Item Value Reference Range Interpretation Comments WBC (test code = See_Comment [Automated 9190-2) message] The sy stem which generated this result transmitted reference range : 4.30 - 11.10 10*3/?L. The reference range was not used to interpret this result as normal/abnormal . RBC (test code = See_Comment L [Automated 949-8) message] The sy stem which [...] RDW-SD (test code = 47.9 fL 39-49.9 60377-4) RDW-CV (test code = 13.7 % 12-15.5 788-0) PLT (test code = See_Comment [Automated 777-3) message] The sy stem which generated this result transmitted reference range : 166 - 358 10*3/ ?L. The reference r luca was not used to interpret this result as normal/abnormal . MPV (test code = 8.5 fL 9.5-12.9 L 70054-1) NRBC/100 WBC (test See_Comment [Automat ed code = 4460884718) message] The system which generated this result transmitted reference range : 0.0 - 10.0 /100 WBCs. The refer ence range was not u sed to interpret th is result as normal/abnormal . NRBC x10^3 (test code <0.01 See_Comment [Auto mated = 1640631166) message] The s ystem which generated this result transmitted reference range : 10*3/?L. The reference range was not used to interpret this result as normal/abnormal . GRAN MAT (NEUT) % 74.2 % (test code = 770-8) IMM GRAN % (test code 0.40 % = 1837659899) LYMPH % (test code = 16.6 % 736-9) MONO % (test code = 6.8 % 5905-5) EOS % (test code = 1.7 % 713-8) BASO % (test code = 0.3 % 706-2) GRAN MAT x10^3(ANC) 5.60 10*3/uL 1.88-7.09 (test code = 4115094691) IMM GRAN x10^3 (test 0.03 10*3/uL 0-0.06 code = 7478243591) LYMPH x10^3 (test code 1.25 10*3/uL 1.32-3.29 L = 731-0) MONO x10^3 (test code 0.51 10*3/uL 0.33-0.92 = 742-7) EOS x10^3 (test code = 0.13 10*3/uL 0.03-0.39 711-2) BASO x10^3 (test code <0.03 0.01-0.07 = 704-7) Lab Interpretation Abnormal (test code = 25761-9) [facility] CenterANTI-NUCLEAR ANTIBODY [id number] 19:43:00 Test Item Value Reference Range Interpretation Comments LESLY (test code = Negative Negative 7338113078) KIM (test code = KIM) Cytoplasmic staining reactions observed. Negative - No Anti-Nuclear Antibodies detected by IFA.Positive - LESLY IFA screen performed with a 1:80 dilution in adults and a 1:40 dilution in pediatrics. Any LESLY "Positive" will have titer performed and reported separately. Lab Interpretation (test Normal code = 11766-3) [facility] CenterCERULOPLASMIN2020-10-21 18:45:00 Test Item Value Reference Range Interpretation Comments CERULO (test code = 3250434871) 55 mg/dL 25-63 Lab Interpretation (test code = Normal 90873-5) [facility] CenterAMMONIA, [id number] 17:29:00 Test Item Value Reference Range Interpretation Comments AMMONIA (test code = 9195557678) <9 9-33 L Lab Interpretation (test code = Abnormal 76632-6) [facility] CenterBLOOD CULTURE [id number] 17:07:00 Test Item Value Reference Range Interpretation Comments Blood Culture-Aerobic Culture positive. No growth AA P revious (test code = 83037-2) See Blood Culture p reliminary Workup for verified result additional was Culture In information. Progress on 01/31/2020 at 1701 CDTPreviou s preliminary verified result was No growth a t 24 hours on 02/01/2020 at 1401 CDT Blood No organisms No growth Previous Culture-Anaerobic isolated preliminar y (test code = 53784-9) verifi ed result was Culture In Progress on 01/31/2020 at 1701 CDTPreviou s preliminary verified result was No growth a t 24 hours on 02/01/2020 at 1401 CDT Lab Interpretation Abnormal (test code = 89109-1) [facility] CenterBLOOD CULTURE [id number] 17:07:00 Test Item Value Reference Range Interpretation [...] positive cocci is no longer being reported. [facility] CenterCREATINE [id number] 10:44:00 Test Item Value Reference Range Interpretation Comments CK (test code = 3217351437) 21 U/L 33-194 L Lab Interpretation (test code = Abnormal 02440-0) [facility] CenterN-TERMINAL [id number] 09:34:00 Test Item Value Reference Range Interpretation Comments NT-proBNP (test code 850 pg/mL See_Comment H [Autom ated = 4929433763) message] The system which generated this result transmitted reference range : <=125. The reference range was not used to interpret this result as normal/abnormal . KIM (test code = KIM) Biotin has been reported to cause a negative bias, interpret results relative to patient's use of biotin. Lab Interpretation Abnormal (test code = 38707-4) [facility] CenterCOM. METABOLIC PANEL (38177)2020-02-03 09:26:00 Test Item Value Reference Range Interpretation Comments NA (test code = 136 mmol/L 135-145 4428986478) K (test code = 3.6 mmol/L 3.5-5 7479076436) CL (test code = 104 mmol/L 98-108 4586713271) CO2 TOTAL (test code = 28 mmol/L 23-31 5407423689) AGAP (test code = 2-16 0018270701) BUN (test code = 7 mg/dL 7-23 8155753424) GLUCOSE (test code = 138 mg/dL 70-110 H 6250155651) CREATININE (test code = 0.61 mg/dL 0.5-1.04 1402986740) TOTAL BILI (test code = 1.0 mg/dL 0.1-1.1 2849518539) CALCIUM (test code = 9.2 mg/dL 8.6-10.6 2870761973) T PROTEIN (test code = 6.6 g/dL 6.3-8.2 4901704323) ALBUMIN (test code = 3.5 g/dL 3.5-5 3556731530) ALK PHOS (test code = 584 U/L 34-122 H 3149309561) ALTv (test code = 131 U/L 5-35 H 1742-6) AST(SGOT) (test code = 49 U/L 13-40 H 5089498536) eGFR Calculation mL/min/1.73m2 (Non-) (test code = 5780089629) eGFR Calculation mL/min/1.73m2 () (test code = 2981811190) KIM (test code = KIM) Association of [...] tests). Lab Interpretation Abnormal (test code = 09402-9) [facility] CenterMAGNESIUM2020-10-21 09:26:00 Test Item Value Reference Range Interpretation Comments MAGNESIUM (test code = 0984874953) 1.7 mg/dL 1.7-2.4 Lab Interpretation (test code = Normal 79675-8) [facility] CenterPHOSPHORUS2020-10-21 09:26:00 Test Item Value Reference Range Interpretation Comments PHOSPHORUS (test code = 1260579118) 4.1 mg/dL 2.5-5 Lab Interpretation (test code = Normal 28027-7) [facility] CenterURIC [id number] 09:26:00 Test Item Value Reference Range Interpretation Comments URIC ACID (test code = 2700257098) 3.4 mg/dL 2.9-6 Lab Interpretation (test code = Normal 96480-1) [facility] CenterCB WITH [id number] 08:58:00 Test Item Value Reference Range Interpretation Comments WBC (test code = See_Comment [Automated 6690-2) message] The sy stem which generated this result transmitted reference range : 4.30 - 11.10 10*3/?L. The reference range was not used to interpret this result as normal/abnormal . RBC (test code = See_Comment L [Automated 009-8) message] The sy stem which generated this [...] RDW-SD (test code = 47.2 fL 39-49.9 79114-9) RDW-CV (test code = 13.2 % 12-15.5 788-0) PLT (test code = See_Comment [Automated 777-3) message] The sy stem which generated this result transmitted reference range : 166 - 358 10*3/ ?L. The reference r luca was not used to interpret this result as normal/abnormal . MPV (test code = 8.7 fL 9.5-12.9 L 79404-0) NRBC/100 WBC (test See_Comment [Automat ed code = 4005735187) message] The system which generated this result transmitted reference range : 0.0 - 10.0 /100 WBCs. The refer ence range was not u sed to interpret th is result as normal/abnormal . NRBC x10^3 (test code <0.01 See_Comment [Auto mated = 6518662459) message] The s ystem which generated this result transmitted reference range : 10*3/?L. The reference range was not used to interpret this result as normal/abnormal . GRAN MAT (NEUT) % 78.4 % (test code = 770-8) IMM GRAN % (test code 0.50 % = 9716295754) LYMPH % (test code = 12.5 % 736-9) MONO % (test code = 6.1 % 5905-5) EOS % (test code = 2.1 % 713-8) BASO % (test code = 0.4 % 706-2) GRAN MAT x10^3(ANC) 6.43 10*3/uL 1.88-7.09 (test code = 5165246605) IMM GRAN x10^3 (test 0.04 10*3/uL 0-0.06 code = 3013514757) LYMPH x10^3 (test code 1.02 10*3/uL 1.32-3.29 L = 731-0) MONO x10^3 (test code 0.50 10*3/uL 0.33-0.92 = 742-7) EOS x10^3 (test code = 0.17 10*3/uL 0.03-0.39 711-2) BASO x10^3 (test code 0.03 10*3/uL 0.01-0.07 = 704-7) Lab Interpretation Abnormal (test code = 65921-3) [facility] CenterVALPROIC ACID, [id number] 05:42:00 Test Item Value Reference Range Interpretation Comments Valproic Acid, Free <2.0 4-15 L (test code = 7646025742) KIM (test code = KIM) Toxic Range: ? Greater than 15 ug/mL Test developed and characteristics determined by [facility] Laboratory Services. Lab Interpretation Abnormal (test code = 83483-4) [facility] CenterHAV ANTIBODY (IGG AND IGM)2020-02-03 04:20:00 Test Item Value Reference Range Interpretation Comments HAV Total (test code Positive = 1416524497) HAVT Semi-Quantitative (test code = 6657928785) KIM (test code = KIM) Indicates past or present infection with HAV or exposure to HAV due to vaccination. [facility] CenterHEPATITIS B SURFACE [id number] 04:12:00 Test Item Value Reference Range Interpretation Comments HBsAB (test code = Negative 1903142395) HBsAb mIU/mL Semi-Quantitative (test code = 7464437065) KIM (test code = Interpretation: KIM) ?Hepatitis B Surface Antibody ? Negative - Patient is considered to be not immune to infection with HBV. ? ? Positive - Anti-HBs detected at greater than or equal to 12 mIU/mL. ?Patient is considered to be immune to infection with HBV. ? [facility] CenterHCV [id number] 04:12:00 Test Item Value Reference Range Interpretation Comments HCV Ab (test code = 81713-9) Negative HCV Semi-Quantitative (test code = 70264-1) [facility] CenterHEPATIIN[facility] B SURFACE [id number] 03:55:00 Test Item Value Reference Range Interpretation Comments HBsAg Semi-Quantitative (test code = Negative Negative 5195-3) [facility] CenterPROCALCITONIN2020-10-21 03:54:00 Test Item Value Reference Range Interpretation Comments Procalcitonin (test 0.05 ng/mL <0.07 code = 4183963833) KIM (test code = KIM) INTERPRETATION OF [...] lung abscess/empyema. For further information please refer to:[email or web address] Lab Interpretation Normal (test code = 33758-8) [facility] CenterGLYCOSYLATED HEMOGLOBIN (A1C)2020-02-02 22:47:00 Test Item Value Reference Range Interpretation Comments HGB A1C (test code = 4.5 % 4-6 4548-4) KIM (test code = KIM) %A1C (NGSP) Interpretation (ADA)4.8-5.6 ? ? Normal or (Non-Diabetic Range)5.7-6.4 ? ? Increased Risk (Pre-Diabetic)>6.5 ?Diabetes Indicated Lab Interpretation Normal (test code = 56557-5) [facility] CenterVALPROIC ACID, [id number] 22:28:00 Test Item Value Reference Range Interpretation Comments VALPROIC A (test code = <10 50-100 L 9327905487) KIM (test code = KIM) Toxic Range: ?Greater than 100 ug/mL Lab Interpretation (test Abnormal code = 77049-2) [facility] CenterLIPID PANEL (19773)(TOTAL CHOLESTEROL, TRIGLYCERIDES, HDL)2020-02-02 21:23:00 Test Item Value Reference Range Interpretation Comments CHOL (test code = 343 mg/dL 120-200 H 9276108598) HDL (test code = 87 mg/dL >50 7271882152) HDLC RATIO (test code = See_Comment [Au tomated message] 6859736575) The system [employer] generated this result transmit gulshan reference range : <=4.5. The refe rence range was not u sed to interpret th is result as normal/abnormal . TRIG (test code = 131 mg/dL 30-170 5583292492) LDL CHOL (test code = 230 mg/dL See_Comment H [Auto mated message] 58850-9) The system [employer] generated this result transmit gulshan reference range : <=160. The refe rence range was not u sed to interpret th is result as normal/abnormal . VLDL (test code = 26 mg/dL 5-60 7859293692) Lab Interpretation (test Abnormal code = 87489-6) [facility] CenterPROTHROMBIN [facility] / [id number] 21:16:00 Test Item Value Reference Range Interpretation Comments PROTIME PATIENT (test See_Comment [Auto mated message] code = 5964-2) The system [employer] generated this result transmitted ref erence range: 12.0 - 1 4.7 Seconds. The re ference range was not u sed to interpret this result as normal/abnor mal. INR (test code = 6301-6) Nor mal INR <1.1; Warfarin Therap eutic range 2.0 to 3. 0 or 2.5 to 3.5, dep ending upon the indica tions. Lab Interpretation (test Normal code = 54026-6) [facility] CenterCREATINE [id number] 21:15:00 Test Item Value Reference Range Interpretation Comments CK (test code = 8143737176) 37 U/L 33-194 Lab Interpretation (test code = Normal 35720-0) [facility]2020-[facility] 12:34:00 Test Item Value Reference Range Interpretation Comments LIPASE (test code = 9437901905) 203 U/L 0-220 Lab Interpretation (test code = Normal 32548-8) [facility] CenterCOMP. METABOLIC PANEL (13609)2020-02-02 12:34:00 Test Item Value Reference Range Interpretation Comments NA (test code = 135 mmol/L 135-145 5290729053) K (test code = 3.5 mmol/L 3.5-5 9522289322) CL (test code = 103 mmol/L 98-108 6941344581) CO2 TOTAL (test code = 25 mmol/L 23-31 5200385525) AGAP (test code = 2-16 2715227953) BUN (test code = 8 mg/dL 7-23 4394731054) GLUCOSE (test code = 148 mg/dL 70-110 H 9318172969) CREATININE (test code = 0.55 mg/dL 0.5-1.04 7660419147) TOTAL BILI (test code = 1.2 mg/dL 0.1-1.1 H 0583256483) CALCIUM (test code = 9.4 mg/dL 8.6-10.6 1432318584) T PROTEIN (test code = 6.9 g/dL 6.3-8.2 5236050418) ALBUMIN (test code = 3.6 g/dL 3.5-5 9984513314) ALK PHOS (test code = 723 U/L 34-122 H 2778110086) ALTv (test code = 166 U/L 5-35 H 1742-6) AST(SGOT) (test code = 72 U/L 13-40 H 9729612093) eGFR Calculation mL/min/1.73m2 (Non-) (test code = 2230232784) eGFR Calculation mL/min/1.73m2 () (test code = 6961591435) KIM (test code = KIM) Association of [...] tests). Lab Interpretation Abnormal (test code = 95647-9) [facility]2020-10-20 12:32:00 Test Item Value Reference Range Interpretation Comments Almond (test code = 0.4 mmol/L 0.6-1.2 L 6804964437) KIM (test code = KIM) Toxic Range: ? Greater than 1.2 mmol/L Lab Interpretation (test Abnormal code = 74756-7) [facility] CenterPOCT GLUCOSE (AUTOMATED)2020-02-02 11:34:00 Test Item Value Reference Range Interpretation Comments POCT GLU (test code = 4442146103) 138 mg/dL 70-110 H Lab Interpretation (test code = Abnormal 16877-3) [facility]. METABOLIC PANEL (83493)2020-02-02 10:51:00 Test Item Value Reference Range Interpretation Comments NA (test code = 129 mmol/L 135-145 L 9495452649) K (test code = 3.0 mmol/L 3.5-5 L 1408972257) CL (test code = 100 mmol/L 98-108 4507883854) CO2 TOTAL (test code = 22 mmol/L 23-31 L 0947588364) AGAP (test code = 2-16 2139734244) BUN (test code = 8 mg/dL 7-23 0050264364) GLUCOSE (test code = 632 mg/dL 70-110 HH 6198425508) CREATININE (test code = 0.54 mg/dL 0.5-1.04 8972960013) TOTAL BILI (test code = 1.0 mg/dL 0.1-1.2 8385441090) CALCIUM (test code = 7.9 mg/dL 8.6-10.6 L 9616590688) T PROTEIN (test code = 5.3 g/dL 6.3-8.2 L 2413874997) ALBUMIN (test code = 2.7 g/dL 3.5-5 L 2028225484) ALK PHOS (test code = 562 U/L 34-122 H 3014559739) ALTv (test code = 138 U/L 5-35 H 1742-6) AST(SGOT) (test code = 61 U/L 13-40 H 5032449490) eGFR Calculation mL/min/1.73m2 (Non-) (test code = 4414202241) eGFR Calculation mL/min/1.73m2 () (test code = 4422554417) KIM (test code = KIM) Association of [...] tests). Lab Interpretation Abnormal (test code = 86689-6) [facility]2020-[facility] 10:40:00 Test Item Value Reference Range Interpretation Comments LIPASE (test code = 9241144626) 140 U/L 0-220 Lab Interpretation (test code = Normal 78149-3) [facility] CenterLITHIUM2020-10-20 10:37:00 Test Item Value Reference Range Interpretation Comments Almond (test code = 0.5 mmol/L 0.6-1.2 L 0885935735) KIM (test code = KIM) Toxic Range: ? Greater than 1.2 mmol/L Lab Interpretation (test Abnormal code = 79597-6) [facility] CenterCB WITH [id number] 09:57:00 Test Item Value Reference Range Interpretation [...] RDW-SD (test code = 47.2 fL 39-49.9 66102-2) RDW-CV (test code = 13.1 % 12-15.5 788-0) PLT (test code = See_Comment [Automated 777-3) message] The sy stem which generated this result transmitted reference range : 166 - 358 10*3/ ?L. The reference r luca was not used to interpret this result as normal/abnormal . MPV (test code = 9.7 fL 9.5-12.9 47913-8) NRBC/100 WBC (test See_Comment [Automat ed code = 0824142777) message] The system which generated this result transmitted reference range : 0.0 - 10.0 /100 WBCs. The refer ence range was not u sed to interpret th is result as normal/abnormal . NRBC x10^3 (test code <0.01 See_Comment [Auto mated = 1466123233) message] The s ystem which generated this result transmitted reference range : 10*3/?L. The reference range was not used to interpret this result as normal/abnormal . GRAN MAT (NEUT) % 78.6 % (test code = 770-8) IMM GRAN % (test code 0.50 % = 8340762160) LYMPH % (test code = 13.1 % 736-9) MONO % (test code = 5.5 % 5905-5) EOS % (test code = 2.0 % 713-8) BASO % (test code = 0.3 % 706-2) GRAN MAT x10^3(ANC) 5.18 10*3/uL 1.88-7.09 (test code = 1951195192) IMM GRAN x10^3 (test 0.03 10*3/uL 0-0.06 code = 4807699711) LYMPH x10^3 (test code 0.86 10*3/uL 1.32-3.29 L = 731-0) MONO x10^3 (test code 0.36 10*3/uL 0.33-0.92 = 742-7) EOS x10^3 (test code = 0.13 10*3/uL 0.03-0.39 711-2) BASO x10^3 (test code <0.03 0.01-0.07 = 704-7) Lab Interpretation Abnormal (test code = 13883-3) [facility] CenterGRAM POSITIVE BLOOD PATHOGENS DNA [id number] 06:56:00 Test Item Value Reference Range Interpretation Comments Coagulase Negative Positive Negative, See A Staphylococcus (test Comment/Narrative code = 39852-2) KIM (test code = KIM) Coagulase negative [...] contact the Antimicrobial Stewardship Program with questions.Pager: ?[phone] Testing included eleven identification and three resistance marker targets. Lab Interpretation Abnormal (test code = 63569-3) [facility] CenterLAB ONLY COVID [id number] 20:46:00COVID DMT InterpretationInterpretation/Recommendations\\nTests (PCR) for Active Infection [...] test is performed there is approximately a tjj-nq-fakmh chance the patient had been infected and [...] this may be the explanation.[facility] LABORATORY SERVICESCOVID GnujarzSKJV-IsD-9 Rapid ID NOW (no units) ? ? Date ? Value ? 01/31/2020 ? Not Detected ? ? ? 08/21/2019 ? Not Detected ? [facility] SERVICESUnKimball [facility]ENOUS BLOOD [id number] 19:37:00 Test Item Value Reference Range Interpretation Comments PH (test code = 7.32-7.42 L 5788965931) PCO2 SANDHYA (test code = See_Comment [Auto mated message] 6422759860) The system [employer] generated this result transmitted ref erence range: 41 - 51 mmHg. The reference r luca was not used to interpret this result as normal/abnor mal. PO2 SANDHYA (test code = See_Comment HH [Autom ated message] 9715561647) The system [employer] generated this result transmitted ref erence range: 25 - 40 mmHg. The reference r luca was not used to interpret this result as normal/abnor mal. HCO3 SANDHYA (test code = See_Comment L [Auto mated message] 9814548827) The system [employer] generated this result transmitted ref erence range: 24 - 28 mEq/L. The reference r luca was not used to interpret this result as normal/abnor mal. AC VBE(BEAKER) (test mEq/L code = 9982597205) Lab Interpretation (test Abnormal code = 61927-7) [facility] CenterUS ABDOMEN [id number] 17:02:17 No sonographic findings to explain patient's [...] the IVC appear unremarkable. [facility], Radiant Results Inft User - 02/01/2020 12:03 [...] kidneys. No appreciable atrophyor cortical thinning. No hydronephrosis.[facility] CenterUrine [id number] 16:35:00 Test Item Value Reference Range Interpretation Comments URINE CULTURE (test No aerobic growth (< code = 630-4) 1000 CFU/mL) [facility] CenterDIFF CONSULT [id number] 15:41:00 MATURE LEUKOCYTES WITH REACTIVE LYMPHOCYTES, REACTIVE MONOCYTES AND OCCASIONAL TOXIC NEUTROPHILS. RARE HYPERSEGMENTED NEUTROPHILS. MACROCYTIC ANEMIA WITH POLYCHROMASIA AND POIKILOCYTOSIS INCLUDING BURRCELLS AND TARGET CELLS. THESE CHANGES ARE SUGGESTIVE OF EARLY VITAMIN B12 DEFICIENCY ANEMIA. AMPLE PLATELETS. [facility] CenterPOAZ GLUCOSE (AUTOMATED)2020-02-01 13:06:00 Test Item Value Reference Range Interpretation Comments POCT GLU (test code = 8521798774) 104 mg/dL 70-110 Lab Interpretation (test code = Normal 95509-5) [facility] CenterCOMP. METABOLIC PANEL (93528)2020-02-01 13:00:00 Test Item Value Reference Range Interpretation Comments NA (test code = 139 mmol/L 135-145 1884814184) K (test code = 4.1 mmol/L 3.5-5 7241042369) CL (test code = 112 mmol/L 98-108 H 0107102650) CO2 TOTAL (test code = 20 mmol/L 23-31 L 4222301671) AGAP (test code = 2-16 5242141401) BUN (test code = 16 mg/dL 7-23 1542367008) GLUCOSE (test code = 99 mg/dL 70-110 6883050124) CREATININE (test code = 0.85 mg/dL 0.5-1.04 5472406314) TOTAL BILI (test code = 1.3 mg/dL 0.1-1.1 H 3500020035) CALCIUM (test code = 8.6 mg/dL 8.6-10.6 3775572825) T PROTEIN (test code = 6.2 g/dL 6.3-8.2 L 9485327435) ALBUMIN (test code = 3.2 g/dL 3.5-5 L 7478767473) ALK PHOS (test code = 646 U/L 34-122 H 3841341819) ALTv (test code = 209 U/L 5-35 H 1742-6) AST(SGOT) (test code = 110 U/L 13-40 H 8141030090) eGFR Calculation mL/min/1.73m2 (Non-) (test code = 0040664246) eGFR Calculation mL/min/1.73m2 () (test code = 2855403158) KIM (test code = KIM) Association of [...] tests). Lab Interpretation Abnormal (test code = 75980-9) [facility] CenterLIPASE2020-10-19 11:07:00 Test Item Value Reference Range Interpretation Comments LIPASE (test code = 9477441260) 353 U/L 0-220 H Lab Interpretation (test code = Abnormal 91534-0) [facility] CenterLITHIUM2020-10-19 11:05:00 Test Item Value Reference Range Interpretation Comments Almond (test code = 1.0 mmol/L 0.6-1.2 0094001761) KIM (test code = KIM) Toxic Range: ? Greater than 1.2 mmol/L Lab Interpretation (test Normal code = 27783-8) [facility] CenterCB with Mpedskafcstc5714-59-35 10:56:00 Test Item Value Reference Range Interpretation [...] RDW-SD (test code = 49.7 fL 39-49.9 32342-7) RDW-CV (test code = 13.2 % 12-15.5 788-0) PLT (test code = See_Comment L [Automated 777-3) message] The sy stem which generated this result transmitted reference range : 166 - 358 10*3/ ?L. The reference r luca was not used to interpret this result as normal/abnormal . MPV (test code = 9.7 fL 9.5-12.9 49991-5) NRBC/100 WBC (test See_Comment [Automat ed code = 2489767823) message] The system which generated this result transmitted reference range : 0.0 - 10.0 /100 WBCs. The refer ence range was not u sed to interpret th is result as normal/abnormal . NRBC x10^3 (test code <0.01 See_Comment [Auto mated = 9345764419) message] The s ystem which generated this result transmitted reference range : 10*3/?L. The reference range was not used to interpret this result as normal/abnormal . GRAN MAT (NEUT) % 79.3 % (test code = 770-8) IMM GRAN % (test code 0.40 % = 3987749759) LYMPH % (test code = 11.4 % 736-9) MONO % (test code = 6.1 % 5905-5) EOS % (test code = 2.6 % 713-8) BASO % (test code = 0.2 % 706-2) GRAN MAT x10^3(ANC) 4.30 10*3/uL 1.88-7.09 (test code = 1261978273) IMM GRAN x10^3 (test <0.03 0-0.06 code = 5373493220) LYMPH x10^3 (test code 0.62 10*3/uL 1.32-3.29 L = 731-0) MONO x10^3 (test code 0.33 10*3/uL 0.33-0.92 = 742-7) EOS x10^3 (test code = 0.14 10*3/uL 0.03-0.39 711-2) BASO x10^3 (test code <0.03 0.01-0.07 = 704-7) Lab Interpretation Abnormal (test code = 18492-8) [facility] CANDICE ZARATE - [id number] 09:27:00 Test Item Value Reference Range Interpretation Comments RPR (Qualitative) (test code = Nonreactive Nonreactive 05032-1) Lab Interpretation (test code = Normal 07787-2) [facility] CenterVITAMIN B12, [id number] 06:47:00 Test Item Value Reference Range Interpretation Comments VIT B12 (test code = 257 pg/mL 240-930 6805112529) KIM (test code = KIM) Biotin has been reported to cause a positive bias, interpret results relative to patient's use of biotin. Lab Interpretation (test Normal code = 39434-1) [facility] CenterFOLATE2020-10-19 06:46:00 Test Item Value Reference Range Interpretation Comments FOLATE SER (test code = 15.7 ng/mL 3-20 Biot in has been 7236879437) reported to cau se a positive bias, interpret resul ts relative to patient's use o f biotin. Lab Interpretation (test Normal code = 68576-9) [facility] CenterOSMOLALITY [id number] 05:47:00 Test Item Value Reference Range Interpretation Comments OSMOLALITY (test code = See_Comment [Au tomated message] 8289063336) The system [employer] generated this result transmitted ref erence range: 278 - 30 5 mOsm/kg. The re ference range was not u sed to interpret this result as normal/abnor mal. Lab Interpretation (test Normal code = 24300-3) [facility] CenterFERRITIN [id number] 01:01:00 Test Item Value Reference Range Interpretation Comments FERRITIN (test code = 234.0 ng/mL 11-264 8203031203) KIM (test code = KIM) Biotin has been reported to cause a negative bias, interpret results relative to patient's use of biotin. Lab Interpretation (test Normal code = 13193-3) [facility] CenterTHYROID STIMULATING [id number] 23:14:00 Test Item Value Reference Range Interpretation Comments TSH (test code = See_Comment Biotin has been 4709961967) reported to cau se a negative bias, interpret resul ts relative to pat ient's use of biotin. [Automated mess age] The system [employer] generated this result transmitted ref erence range: 0.45 - 4 .70 mIU/L. The refe rence range was not u sed to interpret this result as normal/abnor mal. Lab Interpretation (test Normal code = 23560-1) [facility] CenterIRON [id number] 22:39:00 Test Item Value Reference Range Interpretation Comments IRON (test code = 68 ug/dL 50-160 Slight hem olysis 9684563030) TIBC (test code = 271 ug/dL 250-410 7508566951) % FE SAT (test code = 25 % 20-50 5713941101) Lab Interpretation (test Normal code = 25190-6) [facility] CenterRETICULOCYTES [id number] 21:52:00 Test Item Value Reference Range Interpretation Comments RETIC Count Automated 2.17 % 0.51-1.9 H (test code = 3529838575) RETIC Absolute Count See_Comment [Autom ated message] (test code = 1021409159) The system which generated this result transmitted ref erence range: 0.0230 - 0.0950 10*6/?L. The reference range was not used to int erpret this result as normal/abnormal . IRF % (test code = 9.20 % 2.1-12.6 0204288983) RETIC-HE (test code = 35.1 pg 28.1-35.8 9144829919) Lab Interpretation (test Abnormal code = 51886-0) [facility] CenterABG+COOX+NA+K+GLU+CA2+2020-01-31 20:41:00 Test Item Value Reference Range Interpretation Comments PH (test code = 2) 7.35-7.45 L PCO2 (test code = See_Comment H [Automate d message] 1764122290) The system [employer] generated this result transmit gulshan reference range : 35 - 45 mmHg. The reference range was not used to interpret this result as normal/abnormal . PO2 (test code = See_Comment L [Automated message] 4432293702) The system [employer] generated this result transmit gulshan reference range : 80 - 100 mmHg. The reference range was not used to interpret this result as normal/abnormal . HCO3 (test code = See_Comment L [Automate d message] 2876991318) The system [employer] generated this result transmit gulshan reference range : 22 - 26 mEq/L. The reference range was not used to interpret this result as normal/abnormal . BE (test code = See_Comment L [Automated message] 4969169436) The system [employer] generated this result transmit gulshan reference range : -3.0 - 3.0 mEq/ L. The reference r luca was not used to interpret this result as normal/abnormal . THB (test code = 9.8 g/dL 12-16 L 0945749093) %O2HB (test code = 94.0 % 94-99 1208708833) %COHB ART (test code = 0.0 % 0-1.5 5155501869) %METHB ART (test code = 0.3 % 0.4-1.5 L 0404931223) VOL%O2 ART (test code = 13.0 % 15-23 L 3186924156) NA (test code = 137 mmol/L 135-145 9611294268) K+ (test code = 4.0 mmol/L 3.5-5 3928498294) AC CA IONZ (test code = 5.10 mg/dL 4.5-5.3 1430310071) GLUCOSE (test code = 100 mg/dL 70-110 3558235953) Lab Interpretation Abnormal (test code = 73242-5) [facility] CenterVALPROIC ACID, [id number] 19:51:00 Test Item Value Reference Range Interpretation Comments VALPROIC A (test code = <10 50-100 L 4650551222) KIM (test code = KIM) Toxic Range: ?Greater than 100 ug/mL Lab Interpretation (test Abnormal code = 57535-9) [facility] CenterACETAMINOPHEN2020-10-18 19:42:00 Test Item Value Reference Range Interpretation Comments ACETAMINOP (test code = <10.0 10-30 L 4359807488) KIM (test code = KIM) Toxic: Greater than 200 ug/mL @ 4 hour post ingestion or greater than 50 ug/mL @ 12 hour post ingestion Lab Interpretation (test Abnormal code = 36872-6) [facility] CenterLITHIUM2020-10-18 19:41:00 Test Item Value Reference Range Interpretation Comments Almond (test code = 1.4 mmol/L 0.6-1.2 H 6628466487) KIM (test code = KIM) Toxic Range: ? Greater than 1.2 mmol/L Lab Interpretation (test Abnormal code = 91681-6) [facility] CenterSALICYLATE2020-10-18 19:41:00 Test Item Value Reference Range Interpretation Comments SALICYLATE (test code <10 mg/L = 7152686488) KIM (test code = KIM) Therapeutic Range: ? Analgesic and Antipyretic Use ? 20-100 mg/L ? ? Anti-Inflammatory Use ? 100-250 mg/L Toxic Range: ? Greater than 300 mg/L [facility] 1 [id number] 17:46:20Impression: No acute cardiopulmonary disease. RL: ?2601 AFC: ?[id number] Chest, one view History: ?AMS . Altered state of awareness Ordering Physician: ?KIRSTIN RON Findings: The lungs are clear without focal pneumonic consolidation,pleural effusion, or pneumothorax. ?The heart size is normal. ?Themediastinal contours are normal. ?No pulmonary edema. Several scatteredcalcified granulomas noted within both lungs. [facility], Radiant Results Inft User - 01/31/2020 12:47 PM CDTChest, one viewHistory: AMS . Altered state of awarenessOrdering Physician: KIRSTIN RON Findings: The lungs are clear without focal pneumonic consolidation,pleural effusion, or pneumothorax. The heart size is normal. Themediastinal contours are normal. No pulmonary edema. Several scatteredcalcified granulomas noted within both lungs.IMPRESSIONImpression: No acute cardiopulmonary disease. RL: 2601AFC: [id number] signed by Gatito Saul MD at 01/31/2020 12:46 PMUnMetropolitan [facility] HospitalAbdomen 1 Ebmo1917-85-43 17:42:04 1. Nonobstructive intestinal bowel gas pattern. RL: ?2601 AFC: ?[id number] CLINICAL INFORMATION: Abdominal pain. Altered state of [...] bowel.IMPRESSION1. 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 ?No acute intracranial process. [...] No acute intracranial process.2. Small right mastoid effusion.[facility] / [facility] - DRUG SCREEN [id number] 16:57:00 Test Item Value Reference Range Interpretation Comments BENZO U (test code = Presumptive Negative A 7868411078) Positive SLIM U (test code = Negative Negative 2506099548) AMPHET (test code = Negative Negative 5887622284) THC (test code = Negative Negative 5634413853) METHADONE (test code Negative Negative = 3108480532) Meth U (test code = Negative Negative 1765333907) OPIATES (test code = Negative Negative 2465225773) Cocaine Metabolite Negative Negative (test code = 6218317531) PROPOXY (test code = Negative Negative 0119241500) Tric U (test code = Presumptive Negative A Confirma tion of 2472976174) Positive Presumptive Positive TCA result requires physician order and this will b e sent to referen ce lab. PCP (test code = Negative Negative 3483936870) OXYCOD (test code = Negative Negative 6121584667) KIM (test code = Urine Drug Cutoff [...] testing). Lab Interpretation Abnormal (test code = 62497-9) [facility] CenterUrinalysis2020-10-18 16:54:00 Test Item Value Reference Range Interpretation Comments APPEARANCE (test code = Hazy Clear A 1752928368) COLOR (test code = Romelia Yellow A 5906134295) PH (test code = 4.8-8.0 6009998910) SP GRAVITY (test code = 1.003-1.030 3423291995) GLU U QUAL (test code = Normal Normal 2154370049) BLOOD (test code = Negative Negative 8563443852) KETONES (test code = Negative Negative 6365647422) PROTEIN (test code = 30 mg/dL Negative A 2887-8) UROBILIN (test code = 4.0 mg/dL Normal A 7549301104) BILIRUBIN (test code = Negative Negative 3270000200) NITRITE (test code = Negative Negative 0278926776) LEUK NICHOLE (test code = 25/uL Negative A 7415962294) RBC/HPF (test code = See_Comment [Autom ated message] 8698857271) The system [employer] generated this result transmit gulshan reference range : 0 - 3 HPF. The refe rence range was not u sed to interpret th is result as normal/abnormal . WBC/HPF (test code = See_Comment H [Autom ated message] 2025995998) The system [employer] generated this result transmit gulshan reference range : 0 - 5 HPF. The refe rence range was not u sed to interpret th is result as normal/abnormal . BACTERIA (test code = Few Negative A 1030151743) MUCOUS (test code = Moderate Negative LPF A 2917670046) SQ EPITH (test code = HPF 9745496098) HYAL CAST (test code = See_Comment H [Aut omated message] 4257845882) The system [employer] generated this result transmit gulshan reference range : <=2 LPF. The refere nce range was not u sed to interpret th is result as normal/abnormal . STELLA BEJARANO (test code = See_Comment H [Au tomated message] 3789286451) The system [employer] generated this result transmit gulshan reference range : <=1 LPF. The refere nce range was not u sed to interpret th is result as normal/abnormal . Lab Interpretation (test Abnormal code = 99051-2) [facility] CenterCOVID-19 (ID NOW RAPID TESTING)2020-01-31 16:39:00 Test Item Value Reference Range Interpretation Comments SARS-CoV-2 Rapid ID NOW Not Detected Not Detected (test code = 12999-3) KIM (test code = KIM) ID NOW COVID-19 Assay is an isothermal nucleic acid amplification test intended for the qualitative detection of nucleic acid from SARS-CoV-2 viral RNA in nasopharyngeal (HOSTEL MANAGER) specimens. It is used under Emergency Use [...] indicated. Lab Interpretation Normal (test code = 69861-7) [facility] CenterTrjamestown regional medical centerbrittany [id number] 16:38:00 Test Item Value Reference Range Interpretation Comments TROPONIN I (test <0.012 See_Comment [Automated code = 5199584686) message] The system which generated this result [...] ? Lab Interpretation Normal (test code = 25887-9) [facility] CenterN-TERMINAL [id number] 16:34:00 Test Item Value Reference Range Interpretation Comments NT-proBNP (test code 283 pg/mL See_Comment H [Autom ated = 8171551925) message] The system which generated this result transmitted reference range : <=125. The reference range was not used to interpret this result as normal/abnormal . KIM (test code = KIM) Biotin has been reported to cause a negative bias, interpret results relative to patient's use of biotin. Lab Interpretation Abnormal (test code = 73859-0) [facility] (NA, K, CL, CO2, GLUCOSE, BUN, CREATININE, CA)2020-01-31 16:26:00 Test Item Value Reference Range Interpretation Comments NA (test code = 134 mmol/L 135-145 L 4967090139) K (test code = 4.9 mmol/L 3.5-5 1039912328) CL (test code = 107 mmol/L 98-108 5820039103) CO2 TOTAL (test code = 19 mmol/L 23-31 L 8599930947) AGAP (test code = 2-16 3921935720) BUN (test code = 30 mg/dL 7-23 H 1924534488) GLUCOSE (test code = 106 mg/dL 70-110 4879730142) CREATININE (test code = 2.21 mg/dL 0.5-1.04 H 0958871441) CALCIUM (test code = 9.5 mg/dL 8.6-10.6 4092920385) eGFR Calculation mL/min/1.73m2 (Non-) (test code = 5766070226) eGFR Calculation mL/min/1.73m2 () (test code = 4005568911) KIM (test code = KIM) Association of [...] tests). Lab Interpretation Abnormal (test code = 73448-0) [facility] (ALB, T.PRO, BILI T, BU/BC, ALT, AST, ALK PHOS)2020-01-31 16:26:00 Test Item Value Reference Range Interpretation Comments TOTAL BILI (test code = 5341042829) 1.5 mg/dL 0.1-1.1 H BILI UNCON (test code = 4440849653) 0.4 mg/dL 0.1-1.1 BILI CONJ (test code = 6938522503) 0.0 mg/dL 0-0.3 T PROTEIN (test code = 3082323697) 8.0 g/dL 6.3-8.2 ALBUMIN (test code = 8554952839) 4.0 g/dL 3.5-5 ALK PHOS (test code = 6931470944) 714 U/L 34-122 H ALTv (test code = 1742-6) 352 U/L 5-35 H AST(SGOT) (test code = 1759738845) 256 U/L 13-40 H Lab Interpretation (test code = Abnormal 81460-6) [facility] CenterLipase [id number] 16:26:00 Test Item Value Reference Range Interpretation Comments LIPASE (test code = 3420352812) 410 U/L 0-220 H Lab Interpretation (test code = Abnormal 72256-8) [facility] CenterAMMONIA, [id number] 16:25:00 Test Item Value Reference Range Interpretation Comments AMMONIA (test code = 32 umol/L 9-33 Slight hemolysis 5032412998) Lab Interpretation (test Normal code = 06680-7) [facility] CenterCB with [id number] 16:13:00 Test Item Value Reference Range Interpretation [...] (test code = 51.4 fL 39-49.9 H 85323-2) RDW-CV (test code = 13.7 % 12-15.5 788-0) PLT (test code = See_Comment [Automated 777-3) message] The sy stem which generated this result transmitted reference range : 166 - 358 10*3/ ?L. The reference r luca was not used to interpret this result as normal/abnormal . MPV (test code = 10.3 fL 9.5-12.9 88780-6) NRBC/100 WBC (test See_Comment [Automat ed code = 9879544710) message] The system which generated this result transmitted reference range : 0.0 - 10.0 /100 WBCs. The refer ence range was not u sed to interpret th is result as normal/abnormal . NRBC x10^3 (test code <0.01 See_Comment [Auto mated = 5123096364) message] The s ystem which generated this result transmitted reference range : 10*3/?L. The reference range was not used to interpret this result as normal/abnormal . GRAN MAT (NEUT) % 77.1 % (test code = 770-8) IMM GRAN % (test code 0.40 % = 7864254706) LYMPH % (test code = 12.2 % 736-9) MONO % (test code = 5.7 % 5905-5) EOS % (test code = 4.3 % 713-8) BASO % (test code = 0.3 % 706-2) GRAN MAT x10^3(ANC) 5.97 10*3/uL 1.88-7.09 (test code = 9984830899) IMM GRAN x10^3 (test 0.03 10*3/uL 0-0.06 code = 2059384588) LYMPH x10^3 (test code 0.94 10*3/uL 1.32-3.29 L = 731-0) MONO x10^3 (test code 0.44 10*3/uL 0.33-0.92 = 742-7) EOS x10^3 (test code = 0.33 10*3/uL 0.03-0.39 711-2) BASO x10^3 (test code <0.03 0.01-0.07 = 704-7) Lab Interpretation Abnormal (test code = 48301-2) [facility] CenterLactic Acid Whole [id number] 16:03:00 Test Item Value Reference Range Interpretation Comments LACTIC ACID (test code = 1.03 mmol/L 0.3-2.6 0935198765) Lab Interpretation (test code = Normal 90328-4) [facility] CenterCT ABDOMEN PELVIS W [id number] 23:00:141. ?Mild circumferential urinary bladder wall thickening [...] the pancreatic duct, unchanged since February2019. Recommend MRI/MRCP.[facility] CenterTroponin [id number] 21:36:00 Test Item Value Reference Range Interpretation Comments TROPONIN I (test <0.012 See_Comment [Automated code = 1961343430) message] The system which generated this result [...] ? Lab Interpretation Normal (test code = 47663-9) [facility] CenterUrinalysis2020-09-04 21:30:00 Test Item Value Reference Range Interpretation Comments APPEARANCE (test code = Clear Clear 5175695376) COLOR (test code = Yellow Yellow 2225269469) PH (test code = 4.8-8.0 9320811347) SP GRAVITY (test code = 1.003-1.030 8841864618) GLU U QUAL (test code = Normal Normal 1119418621) BLOOD (test code = Negative Negative 9408362207) KETONES (test code = Negative Negative 3052339453) PROTEIN (test code = Negative Negative 2887-8) UROBILIN (test code = 4.0 mg/dL Normal A 4025941601) BILIRUBIN (test code = Negative Negative 7946881134) NITRITE (test code = Negative Negative 3552896999) LEUK NICHOLE (test code = Negative Negative 7618717153) RBC/HPF (test code = See_Comment [Autom ated message] 1880779705) The system [employer] generated this result transmit gulhsan reference range : 0 - 3 HPF. The refe rence range was not u sed to interpret th is result as normal/abnormal . WBC/HPF (test code = See_Comment [Autom ated message] 0761637012) The system [employer] generated this result transmit gulshan reference range : 0 - 5 HPF. The refe rence range was not u sed to interpret th is result as normal/abnormal . BACTERIA (test code = Few Negative A 6592541894) MUCOUS (test code = Slight Negative LPF A 3828297620) SQ EPITH (test code = HPF 9609254108) HYAL CAST (test code = See_Comment [Aut omated message] 3146415143) The system [employer] generated this result transmit gulshan reference range : <=2 LPF. The refere nce range was not u sed to interpret th is result as normal/abnormal . Lab Interpretation (test Abnormal code = 00218-1) [facility] with [id number] 21:29:00 Test Item Value Reference Range Interpretation [...] (test code = 54.6 fL 39-49.9 H 24056-7) RDW-CV (test code = 14.9 % 12-15.5 788-0) PLT (test code = See_Comment L [Automated 777-3) message] The sy stem which generated this result transmitted reference range : 166 - 358 10*3/ ?L. The reference r luca was not used to interpret this result as normal/abnormal . MPV (test code = 9.5 fL 9.5-12.9 07850-6) IPF % (test code = 1.5 % 1.3-7.7 Platelet count 0186929869) measured by fluorescence method. NRBC/100 WBC (test See_Comment [Automat ed code = 0753572669) message] The system which generated this result transmitted reference range : 0.0 - 10.0 /100 WBCs. The refer ence range was not u sed to interpret th is result as normal/abnormal . NRBC x10^3 (test code <0.01 See_Comment [Auto mated = 9630197343) message] The s ystem which generated this result transmitted reference range : 10*3/?L. The reference range was not used to interpret this result as normal/abnormal . GRAN MAT (NEUT) % 64.0 % (test code = 770-8) IMM GRAN % (test code 1.00 % = 6751133875) LYMPH % (test code = 22.5 % 736-9) MONO % (test code = 11.0 % 5905-5) EOS % (test code = 1.0 % 713-8) BASO % (test code = 0.5 % 706-2) GRAN MAT x10^3(ANC) 2.61 10*3/uL 1.88-7.09 (test code = 9685507453) IMM GRAN x10^3 (test 0.04 10*3/uL 0-0.06 code = 0237184688) LYMPH x10^3 (test code 0.92 10*3/uL 1.32-3.29 L = 731-0) MONO x10^3 (test code 0.45 10*3/uL 0.33-0.92 = 742-7) EOS x10^3 (test code = 0.04 10*3/uL 0.03-0.39 711-2) BASO x10^3 (test code <0.03 0.01-0.07 = 704-7) Lab Interpretation Abnormal (test code = 17855-2) [facility] Metabolic Panel (NA, K, CL, CO2, GLUCOSE, BUN, CREATININE, CA)2019-12-18 21:25:00 Test Item Value Reference Range Interpretation Comments NA (test code = 138 mmol/L 135-145 4008096114) K (test code = 4.8 mmol/L 3.5-5 8685523983) CL (test code = 104 mmol/L 98-108 3846243989) CO2 TOTAL (test code = 27 mmol/L 23-31 9970916632) AGAP (test code = 2-16 4227573535) BUN (test code = 12 mg/dL 7-23 9367925712) GLUCOSE (test code = 101 mg/dL 70-110 4338951344) CREATININE (test code 0.70 mg/dL 0.5-1.04 = 9533416484) CALCIUM (test code = 9.3 mg/dL 8.6-10.6 8319535759) eGFR Calculation mL/min/1.73m2 (Non-) (test code = 9496187412) eGFR Calculation mL/min/1.73m2 () (test code = 7223051917) KIM (test code = KIM) Association of [...] or urine or abnormalities in imaging tests). [facility] Function [facility] (ALB, T.PRO, BILI T, BU/BC, ALT, AST, ALK PHOS)2019-12-18 21:25:00 Test Item Value Reference Range Interpretation Comments TOTAL BILI (test code = 6832968987) 1.0 mg/dL 0.1-1.1 BILI UNCON (test code = 9362636109) 0.6 mg/dL 0.1-1.1 BILI CONJ (test code = 4227743493) 0.0 mg/dL 0-0.3 T PROTEIN (test code = 5758252741) 7.8 g/dL 6.3-8.2 ALBUMIN (test code = 3561988735) 4.3 g/dL 3.5-5 ALK PHOS (test code = 3926437388) 580 U/L 34-122 H ALTv (test code = 1742-6) 199 U/L 5-35 H AST(SGOT) (test code = 7509650997) 215 U/L 13-40 H Lab Interpretation (test code = Abnormal 32974-7) [facility] CenterLipase [id number] 21:25:00 Test Item Value Reference Range Interpretation Comments LIPASE (test code = 6536221870) 267 U/L 0-220 H Lab Interpretation (test code = Abnormal 16321-5) [facility] CenterXR CHEST 1 VW [id number] 02:17:38 No findings suggestive of COVID-19 pneumonia. Disclaimer: Generally, the findings on chest imaging in COVID-19 are notspecific, and overlap with other infections, including influenza, H1N1,SARS and MERS.According to the Centers for Disease Control (CDC) and the [employer] [place] [employer], viral testing remains the only [...] Centers for Disease Control (CDC) and the [employer] [place] [employer], viral testing remains the only specific method of diagnosiseven if CXR or CT findings are suggestive of COVID-19. Preliminary Report Dictated by Resident: Ritchie Merchant MD., have reviewed this study and agree with the abovereport.[facility] CORONAVIRUS COVID-19 [id number] 02:11:00 Test Item Value Reference Range Interpretation Comments SARS-CoV-2 (test code = Not Detected Not Detected 65819-9) KIM (test code = KIM) ID NOW COVID-19 Assay is an isothermal nucleic acid amplification test intended for the qualitative detection of nucleic acid from SARS-CoV-2 viral RNA in nasopharyngeal ([employer]) specimens. It is used under Emergency Use [...] indicated. Lab Interpretation Normal (test code = 50675-0) [facility] CenterTROPONIN [id number] 01:42:00 Test Item Value Reference Range Interpretation Comments TROPONIN I (test <0.012 See_Comment [Automated code = 4218080959) message] The system which generated this result [...] ? Lab Interpretation Normal (test code = 89430-5) [facility]. METABOLIC PANEL (44645)2019-08-22 01:30:00 Test Item Value Reference Range Interpretation Comments NA (test code = 142 mmol/L 135-145 0017236821) K (test code = 4.1 mmol/L 3.5-5 4452498582) CL (test code = 106 mmol/L 98-108 8675705852) CO2 TOTAL (test code = 28 mmol/L 23-31 5996352238) AGAP (test code = 2-16 1519870206) BUN (test code = 16 mg/dL 7-23 2654327745) GLUCOSE (test code = 141 mg/dL 70-110 H 6854529713) CREATININE (test code = 0.75 mg/dL 0.5-1.04 2190702254) TOTAL BILI (test code = 0.8 mg/dL 0.1-1.8 4554843918) CALCIUM (test code = 9.6 mg/dL 8.6-10.6 3270334255) T PROTEIN (test code = 7.8 g/dL 6.3-8.2 8802497553) ALBUMIN (test code = 4.1 g/dL 3.5-5 9301017907) ALK PHOS (test code = 664 U/L 34-122 H 4720401847) ALTv (test code = 82 U/L 5-35 H 1742-6) AST(SGOT) (test code = 111 U/L 13-40 H 4923571235) eGFR Calculation mL/min/1.73m2 (Non-) (test code = 7972033255) eGFR Calculation mL/min/1.73m2 () (test code = 0904169691) KIM (test code = KIM) Association of [...] tests). Lab Interpretation Abnormal (test code = 59842-9) [facility] CenterLIPASE, [id number] 01:30:00 Test Item Value Reference Range Interpretation Comments LIPASE (test code = 1531060102) 87 U/L 0-220 Lab Interpretation (test code = Normal 95209-0) [facility] CenteraPTT2020-05-09 01:29:00 Test Item Value Reference Range Interpretation Comments APTT Patient (test See_Comment [Automat ed code = 3173-2) message] The system which generated this result transmitted reference range : 23 - 38 Seconds . The reference range was not used to interpr et this result as normal/abnormal . KIM (test code = KIM) The [facility] patient population mean normal value for aPTT is 30 seconds. Lab Interpretation Normal (test code = 29152-8) [facility] CenterPROTHROMBIN TIME / [id number] 01:27:00 Test Item Value Reference Range Interpretation [...] tions. Lab Interpretation (test Normal code = 59307-1) [facility] CenterURINALYSIS2020-05-09 01:25:00 Test Item Value Reference Range Interpretation Comments APPEARANCE (test code = Hazy Clear A 1081621744) COLOR (test code = Romelia Yellow A 4326262513) PH (test code = 4.8-8.0 4357967316) SP GRAVITY (test code = 1.003-1.030 3169049505) GLU U QUAL (test code = Normal Normal 2385812130) BLOOD (test code = Negative Negative 1937772617) KETONES (test code = Negative Negative 0330501301) PROTEIN (test code = 30 mg/dL Negative A 2887-8) UROBILIN (test code = 4.0 mg/dL Normal A 9935705791) BILIRUBIN (test code = Negative Negative 2017964353) NITRITE (test code = Positive Negative A 6022548029) LEUK NICHOLE (test code = 500/uL Negative A 8228821958) RBC/HPF (test code = See_Comment H [Autom ated message] 3438156558) The system [employer] generated this result transmit gulshan reference range : 0 - 3 HPF. The refe rence range was not u sed to interpret th is result as normal/abnormal . WBC/HPF (test code = See_Comment H [Autom ated message] 0848180422) The system [employer] generated this result transmit gulshan reference range : 0 - 5 HPF. The refe rence range was not u sed to interpret th is result as normal/abnormal . BACTERIA (test code = Many Negative A 8915735218) MUCOUS (test code = Moderate Negative LPF A 0555552603) SQ EPITH (test code = HPF 9488675535) Lab Interpretation (test Abnormal code = 94081-2) [facility] WITH [id number] 01:18:00 Test Item Value Reference Range Interpretation Comments WBC (test code = See_Comment L [Automated 4590-2) message] The sy stem which generated this [...] RDW-SD (test code = 44.3 fL 39-49.9 45018-0) RDW-CV (test code = 12.6 % 12-15.5 788-0) PLT (test code = See_Comment [Automated 777-3) message] The sy stem which generated this result transmitted reference range : 166 - 358 10*3/ ?L. The reference r luca was not used to interpret this result as normal/abnormal . MPV (test code = 9.1 fL 9.5-12.9 L 32489-5) NRBC/100 WBC (test See_Comment [Automat ed code = 6597971064) message] The system which generated this result transmitted reference range : 0.0 - 10.0 /100 WBCs. The refer ence range was not u sed to interpret th is result as normal/abnormal . NRBC x10^3 (test code <0.01 See_Comment [Auto mated = 2851910170) message] The s ystem which generated this result transmitted reference range : 10*3/?L. The reference range was not used to interpret this result as normal/abnormal . GRAN MAT (NEUT) % 71.0 % (test code = 770-8) IMM GRAN % (test code 1.70 % = 9055657502) LYMPH % (test code = 16.1 % 736-9) MONO % (test code = 9.8 % 5905-5) EOS % (test code = 1.1 % 713-8) BASO % (test code = 0.3 % 706-2) GRAN MAT x10^3(ANC) 2.47 10*3/uL 1.88-7.09 (test code = 8499676154) IMM GRAN x10^3 (test 0.06 10*3/uL 0-0.06 code = 7332041433) LYMPH x10^3 (test code 0.56 10*3/uL 1.32-3.29 L = 731-0) MONO x10^3 (test code 0.34 10*3/uL 0.33-0.92 = 742-7) EOS x10^3 (test code = 0.04 10*3/uL 0.03-0.39 711-2) BASO x10^3 (test code <0.03 0.01-0.07 = 704-7) Lab Interpretation Abnormal (test code = 80920-6) [facility] CenterTroponin [id number] 23:39:00 Test Item Value Reference Range Interpretation Comments TROPONIN I (test 0.005 ng/mL See_Comment [Automated code = 0432541983) message] The system which generated this result [...] ? Lab Interpretation Normal (test code = 01653-8) [facility] (NA, K, CL, CO2, GLUCOSE, BUN, CREATININE, CA)2019-06-25 23:27:00 Test Item Value Reference Range Interpretation Comments NA (test code = 138 mmol/L 135-145 3412585542) K (test code = 4.3 mmol/L 3.5-5 9876884124) CL (test code = 103 mmol/L 98-108 6322935245) CO2 TOTAL (test code = 27 mmol/L 23-31 5831368562) AGAP (test code = 2-16 8074817401) BUN (test code = 16 mg/dL 7-23 3901419555) GLUCOSE (test code = 106 mg/dL 70-110 4529771242) CREATININE (test code 0.66 mg/dL 0.5-1.04 = 9614476701) CALCIUM (test code = 9.1 mg/dL 8.6-10.6 8186177933) eGFR Calculation mL/min/1.73m2 (Non-) (test code = 4523153689) eGFR Calculation mL/min/1.73m2 () (test code = 8538475222) KIM (test code = KIM) Association of [...] or urine or abnormalities in imaging tests). [facility] CenterLipase [id number] 23:27:00 Test Item Value Reference Range Interpretation Comments LIPASE (test code = 2312813405) 55 U/L 0-220 Lab Interpretation (test code = Normal 72875-4) [facility] CenterHepatic Function Panel (ALB, T.PRO, BILI T, BU/BC, ALT, AST, ALK PHOS)2019-06-25 23:27:00 Test Item Value Reference Range Interpretation Comments TOTAL BILI (test code = 2499757751) 1.0 mg/dL 0.1-1.1 BILI UNCON (test code = 2731011936) 0.2 mg/dL 0.1-1.1 BILI CONJ (test code = 9191619203) 0.0 mg/dL 0-0.3 T PROTEIN (test code = 7095458164) 7.8 g/dL 6.3-8.2 ALBUMIN (test code = 6502637935) 4.3 g/dL 3.5-5 ALK PHOS (test code = 0710615945) 622 U/L 34-122 H ALTv (test code = 1742-6) 126 U/L 5-35 H AST(SGOT) (test code = 2652076755) 180 U/L 13-40 H Lab Interpretation (test code = Abnormal 92683-7) [facility] CenterCBC WITH [id number] 23:23:00 Test Item Value Reference Range Interpretation Comments WBC (test code = See_Comment L [Automated 8990-2) message] The sy stem which generated this [...] (test code = 51.3 fL 39-49.9 H 86582-8) RDW-CV (test code = 14.9 % 12-15.5 788-0) PLT (test code = See_Comment [Automated 777-3) message] The sy stem which generated this result transmitted reference range : 166 - 358 10*3/ ?L. The reference r luca was not used to interpret this result as normal/abnormal . MPV (test code = 9.3 fL 9.5-12.9 L 16692-6) NRBC/100 WBC (test See_Comment [Automat ed code = 4133096598) message] The system which generated this result transmitted reference range : 0.0 - 10.0 /100 WBCs. The refer ence range was not u sed to interpret th is result as normal/abnormal . NRBC x10^3 (test code <0.01 See_Comment [Auto mated = 9448226428) message] The s ystem which generated this result transmitted reference range : 10*3/?L. The reference range was not used to interpret this result as normal/abnormal . GRAN MAT (NEUT) % 67.4 % (test code = 770-8) IMM GRAN % (test code 0.60 % = 4560981230) LYMPH % (test code = 20.6 % 736-9) MONO % (test code = 9.4 % 5905-5) EOS % (test code = 1.7 % 713-8) BASO % (test code = 0.3 % 706-2) GRAN MAT x10^3(ANC) 2.43 10*3/uL 1.88-7.09 (test code = 9076956695) IMM GRAN x10^3 (test <0.03 0-0.06 code = 9809946206) LYMPH x10^3 (test code 0.74 10*3/uL 1.32-3.29 L = 731-0) MONO x10^3 (test code 0.34 10*3/uL 0.33-0.92 = 742-7) EOS x10^3 (test code = 0.06 10*3/uL 0.03-0.39 711-2) BASO x10^3 (test code <0.03 0.01-0.07 = 704-7) Lab Interpretation Abnormal (test code = 08865-0) [facility] CenterURINALYSIS2020-03-12 22:51:00 Test Item Value Reference Range Interpretation Comments APPEARANCE (test code = Clear Clear 7656096937) COLOR (test code = Yellow Yellow 7928897877) PH (test code = 4.8-8.0 5078573140) SP GRAVITY (test code = 1.003-1.030 8122609863) GLU U QUAL (test code = Negative Negative 5744134292) BLOOD (test code = Negative Negative 9805610255) KETONES (test code = Negative Negative 4851237542) PROTEIN (test code = Negative Negative 2887-8) UROBILIN (test code = 1.0 mg/dL See_Comment [Auto mated message] 2339551394) The system [employer] generated this result transmit gulshan reference range : 0-1.0 mg/dL. Th e reference range was not used to interpret this result as normal/abnormal . BILIRUBIN (test code = Small Negative A 9778700029) NITRITE (test code = Negative Negative 2450716314) LEUK NICHOLE (test code = Negative Negative 6467214101) RBC/HPF (test code = See_Comment [Autom ated message] 7070751042) The system [employer] generated this result transmit gulshan reference range : 0 - 3 HPF. The refe rence range was not u sed to interpret th is result as normal/abnormal . WBC/HPF (test code = See_Comment [Autom ated message] 4348205050) The system [employer] generated this result transmit gulshan reference range : 0 - 5 HPF. The refe rence range was not u sed to interpret th is result as normal/abnormal . BACTERIA (test code = Negative Negative 1374398378) Ictotest (test code = Negative 0222031260) Lab Interpretation (test Abnormal code = 86959-3) [facility] CenterPregnancy Test, [id number] 22:10:00 Test Item Value Reference Range Interpretation Comments PREG SERUM (test code Negative = 8925974096) KIM (test code = KIM) Less than 10 IU/L. ?If low titer or ectopic is suspected, resubmit specimen in 48-72 hours. [facility] WITH [id number] 22:10:00 Test Item Value Reference Range Interpretation [...] RDW-SD (test code = 49.4 fL 39-49.9 55684-6) RDW-CV (test code = 14.6 % 12-15.5 788-0) PLT (test code = See_Comment [Automated 777-3) message] The sy stem which generated this result transmitted reference range : 166 - 358 10*3/ ?L. The reference r luca was not used to interpret this result as normal/abnormal . MPV (test code = 9.1 fL 9.5-12.9 L 89307-9) NRBC/100 WBC (test See_Comment [Automat ed code = 0759983803) message] The system which generated this result transmitted reference range : 0.0 - 10.0 /100 WBCs. The refer ence range was not u sed to interpret th is result as normal/abnormal . NRBC x10^3 (test code <0.01 See_Comment [Auto mated = 1688034214) message] The s ystem which generated this result transmitted reference range : 10*3/?L. The reference range was not used to interpret this result as normal/abnormal . GRAN MAT (NEUT) % 48.3 % (test code = 770-8) IMM GRAN % (test code 0.30 % = 7018894783) LYMPH % (test code = 38.9 % 736-9) MONO % (test code = 9.8 % 5905-5) EOS % (test code = 2.4 % 713-8) BASO % (test code = 0.3 % 706-2) GRAN MAT x10^3(ANC) 1.78 10*3/uL 1.88-7.09 L (test code = 0458039281) IMM GRAN x10^3 (test <0.03 0-0.06 code = 4238898813) LYMPH x10^3 (test code 1.43 10*3/uL 1.32-3.29 = 731-0) MONO x10^3 (test code 0.36 10*3/uL 0.33-0.92 = 742-7) EOS x10^3 (test code = 0.09 10*3/uL 0.03-0.39 711-2) BASO x10^3 (test code <0.03 0.01-0.07 = 704-7) Lab Interpretation Abnormal (test code = 76267-1) [facility] CenterUrinalysis2020-03-06 20:58:00 Test Item Value Reference Range Interpretation Comments APPEARANCE (test code = Hazy Clear A 7634583000) COLOR (test code = Yellow Yellow 1333070896) PH (test code = 4.8-8.0 1391906545) SP GRAVITY (test code = 1.003-1.030 2942632136) GLU U QUAL (test code = Normal Normal 3059276975) BLOOD (test code = Negative Negative 8835678661) KETONES (test code = Negative Negative 3196697388) PROTEIN (test code = Negative Negative 2887-8) UROBILIN (test code = 4.0 mg/dL Normal A 4064560484) BILIRUBIN (test code = Negative Negative 8432958907) NITRITE (test code = Negative Negative 1526701201) LEUK NICHOLE (test code = Negative Negative 8262703272) RBC/HPF (test code = See_Comment [Autom ated message] 3745132155) The system [employer] generated this result transmit gulshan reference range : 0 - 3 HPF. The refe rence range was not u sed to interpret th is result as normal/abnormal . WBC/HPF (test code = See_Comment [Autom ated message] 6192281895) The system [employer] generated this result transmit gulshan reference range : 0 - 5 HPF. The refe rence range was not u sed to interpret th is result as normal/abnormal . BACTERIA (test code = Many Negative A 0687948597) MUCOUS (test code = Slight Negative LPF A 4256180220) SQ EPITH (test code = HPF 5291714537) HYAL CAST (test code = See_Comment [Aut omated message] 1169659163) The system [employer] generated this result transmit gulshan reference range : <=2 LPF. The refere nce range was not u sed to interpret th is result as normal/abnormal . Lab Interpretation (test Abnormal code = 09350-8) [facility] Metabolic Panel (NA, K, CL, CO2, GLUCOSE, BUN, CREATININE, CA)2019-06-19 20:51:00 Test Item Value Reference Range Interpretation Comments NA (test code = 141 mmol/L 135-145 5864352579) K (test code = 4.5 mmol/L 3.5-5 0249209170) CL (test code = 107 mmol/L 98-108 6721920574) CO2 TOTAL (test code = 25 mmol/L 23-31 0598032385) AGAP (test code = 2-16 3960199291) BUN (test code = 16 mg/dL 7-23 5142848989) GLUCOSE (test code = 89 mg/dL 70-110 6946401661) CREATININE (test code 0.50 mg/dL 0.5-1.04 = 9836290544) CALCIUM (test code = 9.0 mg/dL 8.6-10.6 4128479292) eGFR Calculation mL/min/1.73m2 (Non-) (test code = 2359426860) eGFR Calculation mL/min/1.73m2 () (test code = 9884991895) KIM (test code = KIM) Association of [...] or urine or abnormalities in imaging tests). [facility] (ALB, T.PRO, BILI T, BU/BC, ALT, AST, ALK PHOS)2019-06-19 20:51:00 Test Item Value Reference Range Interpretation Comments TOTAL BILI (test code = 7478235935) 0.9 mg/dL 0.1-1.1 BILI UNCON (test code = 8782914583) 0.5 mg/dL 0.1-1.1 BILI CONJ (test code = 2561597241) 0.0 mg/dL 0-0.3 T PROTEIN (test code = 0290964202) 8.0 g/dL 6.3-8.2 ALBUMIN (test code = 5301835582) 4.3 g/dL 3.5-5 ALK PHOS (test code = 7391875415) 613 U/L 34-122 H ALTv (test code = 1742-6) 115 U/L 5-35 H AST(SGOT) (test code = 6187457980) 157 U/L 13-40 H Lab Interpretation (test code = Abnormal 58268-8) [facility] CenterLipase [id number] 20:51:00 Test Item Value Reference Range Interpretation Comments LIPASE (test code = 9219635152) 89 U/L 0-220 Lab Interpretation (test code = Normal 73580-1) [facility] CenterCT ABDOMEN PELVIS W [id number] 03:36:50 No acute intra-abdominal abnormality. Hepatosplenomegaly with [...] liver. Preliminary Report Dictated by Resident: Helena Giraldo, Apolinar Montes MD., have reviewed this study and agree withthe above report.[facility] CenterComplete Metabolic [id number] 01:38:00 Test Item Value Reference Range Interpretation Comments NA (test code = 141 mmol/L 135-145 0910035886) K (test code = 4.0 mmol/L 3.5-5 4091109546) CL (test code = 105 mmol/L 98-108 9449196110) CO2 TOTAL (test code = 24 mmol/L 23-31 1436734684) AGAP (test code = 2-16 2338636416) BUN (test code = 23 mg/dL 7-23 9468608554) GLUCOSE (test code = 110 mg/dL 70-110 3755891629) CREATININE (test code = 0.68 mg/dL 0.5-1.04 1278013522) TOTAL BILI (test code = 1.0 mg/dL 0.1-1.5 5220092651) CALCIUM (test code = 9.4 mg/dL 8.6-10.6 3986480270) T PROTEIN (test code = 8.1 g/dL 6.3-8.2 6392404928) ALBUMIN (test code = 4.7 g/dL 3.5-5 1700698076) ALK PHOS (test code = 575 U/L 34-122 H 4808767038) ALTv (test code = 112 U/L 5-35 H 1742-6) AST(SGOT) (test code = 112 U/L 13-40 H 3173527880) eGFR Calculation mL/min/1.73m2 (Non-) (test code = 3219528574) eGFR Calculation mL/min/1.73m2 () (test code = 4770585369) KIM (test code = KIM) Association of [...] tests). Lab Interpretation Abnormal (test code = 85755-2) [facility] CenterLipase, [id number] 01:38:00 Test Item Value Reference Range Interpretation Comments LIPASE (test code = 2023790971) 65 U/L 0-220 Lab Interpretation (test code = Normal 44961-2) [facility] CenterUrinalysis2020-02-05 01:30:00 Test Item Value Reference Range Interpretation Comments APPEARANCE (test code = Clear Clear 7784750863) COLOR (test code = Romelia Yellow A 0880475026) PH (test code = 4.8-8.0 7588588635) SP GRAVITY (test code = 1.003-1.030 9651716080) GLU U QUAL (test code = Normal Normal 8655254514) BLOOD (test code = Negative Negative 1967727301) KETONES (test code = Negative Negative 2319305122) PROTEIN (test code = Negative Negative 2887-8) UROBILIN (test code = 2.0 mg/dL Normal A 5477474618) BILIRUBIN (test code = Negative Negative 6930815349) NITRITE (test code = Negative Negative 7209830489) LEUK NICHOLE (test code = Negative Negative 7163998397) RBC/HPF (test code = See_Comment H [Autom ated message] 7774474927) The system [employer] generated this result transmit gulshan reference range : 0 - 3 HPF. The refe rence range was not u sed to interpret th is result as normal/abnormal . WBC/HPF (test code = See_Comment [Autom ated message] 5628604637) The system [employer] generated this result transmit gulshan reference range : 0 - 5 HPF. The refe rence range was not u sed to interpret th is result as normal/abnormal . BACTERIA (test code = Few Negative A 7440628913) MUCOUS (test code = Slight Negative LPF A 2783507261) SQ EPITH (test code = HPF 9914451684) Lab Interpretation (test Abnormal code = 71513-4) [facility] CenterCBC WITH [id number] 01:24:00 Test Item Value Reference Range Interpretation [...] RDW-SD (test code = 49.0 fL 39-49.9 65346-6) RDW-CV (test code = 14.3 % 12-15.5 788-0) PLT (test code = See_Comment [Automated 777-3) message] The sy stem which generated this result transmitted reference range : 166 - 358 10*3/ ?L. The reference r luca was not used to interpret this result as normal/abnormal . MPV (test code = 10.2 fL 9.5-12.9 16112-1) NRBC/100 WBC (test See_Comment [Automat ed code = 3038994650) message] The system which generated this result transmitted reference range : 0.0 - 10.0 /100 WBCs. The refer ence range was not u sed to interpret th is result as normal/abnormal . NRBC x10^3 (test code <0.01 See_Comment [Auto mated = 1330554950) message] The s ystem which generated this result transmitted reference range : 10*3/?L. The reference range was not used to interpret this result as normal/abnormal . GRAN MAT (NEUT) % 65.5 % (test code = 770-8) IMM GRAN % (test code 0.50 % = 0968142163) LYMPH % (test code = 24.7 % 736-9) MONO % (test code = 8.6 % 5905-5) EOS % (test code = 0.5 % 713-8) BASO % (test code = 0.2 % 706-2) GRAN MAT x10^3(ANC) 4.37 10*3/uL 1.88-7.09 (test code = 5167303198) IMM GRAN x10^3 (test 0.03 10*3/uL 0-0.06 code = 8273661285) LYMPH x10^3 (test code 1.64 10*3/uL 1.32-3.29 = 731-0) MONO x10^3 (test code 0.57 10*3/uL 0.33-0.92 = 742-7) EOS x10^3 (test code = 0.03 10*3/uL 0.03-0.39 711-2) BASO x10^3 (test code <0.03 0.01-0.07 = 704-7) Lab Interpretation Abnormal (test code = 66739-2) [facility] CenterCT ANKLE RIGHT WO [id number] 16:39:33 Distal tibial spiral fracture with entrance [...] the anterolateral tibialplafond without tibial plafond articular incongruity.[facility] CenterXR TIBIA FIBULA 2 VW [id number] 20:06:10 Comminuted mildly displaced distal tibia fracture [...] of the intertarsal and TMT joints isidentified. [facility], Radiant Results Inft User - 12/01/2018 3:08 [...] to the tibialplafond.Nondisplaced proximal fibular shaft fracture. [facility] CenterXR FOOT 3+ VW [id number] 20:06:10 Comminuted mildly displaced distal tibia fracture [...] extending to the tibialplafond.Nondisplaced proximal fibular shaft fracture.[facility] CenterURINE [id number] 21:51:00 Test Item Value Reference Range Interpretation Comments URINE CULTURE (test 10,000 - 100,000 CFU/mL code = 630-4) mixed aerobic organisms - suggests endogenous microbial contamination [facility] CenterHELICOBACTER PYLORI AB, [id number] 14:31:00 Test Item Value Reference Range Interpretation Comments Helicobacter pylori IgG Negative Negative Antibody (test code = 7759372263) KIM (test code = KIM) Negative - No H. pylori IgG antibody detected.Positive - Indicates presence of detectable IgG antibodies. Does not distinguish between past or current infection, or between active infection and colonization.Invalid - A second sample should be sent. Lab Interpretation (test Normal code = 22413-1) [facility] CenterBasic Metabolic Panel (NA, K, CL, CO2, GLUCOSE, BUN, CREATININE, CA)2018-11-16 10:15:00 Test Item Value Reference Range Interpretation Comments NA (test code = 140 mmol/L 135-145 5080326608) K (test code = 3.9 mmol/L 3.5-5 1582785285) CL (test code = 105 mmol/L 98-108 3522055913) CO2 TOTAL (test code = 30 mmol/L 23-31 4361512134) AGAP (test code = 2-16 6292112432) BUN (test code = 16 mg/dL 7-23 6746406056) GLUCOSE (test code = 104 mg/dL 70-110 7416301470) CREATININE (test code 0.52 mg/dL 0.5-1.04 = 6922504000) CALCIUM (test code = 8.6 mg/dL 8.6-10.6 8636068435) eGFR Calculation mL/min/1.73m2 (Non-) (test code = 9751489261) eGFR Calculation mL/min/1.73m2 () (test code = 1742548202) KIM (test code = KIM) Association of [...] or urine or abnormalities in imaging tests). [facility] WITH [id number] 09:47:00 Test Item Value Reference Range Interpretation Comments WBC (test code = See_Comment [Automated 0007-2) message] The sy stem which generated this [...] RDW-SD (test code = 47.8 fL 39-49.9 43667-6) RDW-CV (test code = 13.5 % 12-15.5 788-0) PLT (test code = See_Comment [Automated 777-3) message] The sy stem which generated this result transmitted reference range : 166 - 358 10*3/ ?L. The reference r luca was not used to interpret this result as normal/abnormal . MPV (test code = 9.9 fL 9.5-12.9 61055-9) NRBC/100 WBC (test See_Comment [Automat ed code = 4381125916) message] The system which generated this result transmitted reference range : 0.0 - 10.0 /100 WBCs. The refer ence range was not u sed to interpret th is result as normal/abnormal . NRBC x10^3 (test code <0.01 See_Comment [Auto mated = 7554124654) message] The s ystem which generated this result transmitted reference range : 10*3/?L. The reference range was not used to interpret this result as normal/abnormal . GRAN MAT (NEUT) % 56.8 % (test code = 770-8) IMM GRAN % (test code 0.40 % = 4326695454) LYMPH % (test code = 27.2 % 736-9) MONO % (test code = 9.1 % 5905-5) EOS % (test code = 5.8 % 713-8) BASO % (test code = 0.7 % 706-2) GRAN MAT x10^3(ANC) 2.55 10*3/uL 1.88-7.09 (test code = 5102556422) IMM GRAN x10^3 (test <0.03 0-0.06 code = 2748562618) LYMPH x10^3 (test code 1.22 10*3/uL 1.32-3.29 L = 731-0) MONO x10^3 (test code 0.41 10*3/uL 0.33-0.92 = 742-7) EOS x10^3 (test code = 0.26 10*3/uL 0.03-0.39 711-2) BASO x10^3 (test code 0.03 10*3/uL 0.01-0.07 = 704-7) Lab Interpretation Abnormal (test code = 20343-3) [facility] CenterGLYCOSYLATED HEMOGLOBIN (A1C)2018-11-16 04:33:00 Test Item Value Reference [...] Indicated Lab Interpretation Normal (test code = 51498-0) [facility] CenterHCV [id number] 02:23:00 Test Item Value Reference Range Interpretation Comments HCV Semi-Quantitative (test code = 91426-8) [facility] CenterHEDEACON[facility]ITALTIS B SURFACE [id number] 02:23:00 Test Item Value Reference Range Interpretation Comments HBsAB (test code = Negative 9028334690) HBsAb mIU/mL Semi-Quantitative (test code = 2235569388) KIM (test code = Interpretation:?Hepatitis KIM) B Surface Antibody? ? Negative - Patient is considered to be not immune to infection with HBV.? Positive - Anti-HBs detected at greater than or equal to 12 mIU/mL.?Patient is considered to be immune to infection with HBV.? [facility] A VIRUS ANTIBODY [id number] 02:11:00 Test Item Value Reference Range Interpretation Comments HAVM Semi-Quantitative (test code = 31104-5) KIM (test code = HAVAb IgM Interpretative KIM) Information:Reactive greater than or equal to 1.2Biotin has been reported to cause a negative bias, interpret results relative to patient's use of biotin. [facility] B CORE ANTIBODY [id number] 02:11:00 Test Item Value Reference Range Interpretation Comments HBCM Semi-Quantitative (test code = 81036-3) KIM (test code = Biotin has been reported KIM) to cause a negative bias, interpret results relative to patient's use of biotin. [facility] CenterABORH [id number] 00:49:22 Test Item Value Reference Range Interpretation Comments ABO & RH (test code O Positive Performe d at [facility] = 20) Laboratory Serv [facility] Blood Bank[address] [place] [address]Wdqb Free: [phone] A No. [id number] [facility] CenterUrinalysis2019-08-04 00:29:00 Test Item Value Reference Range Interpretation Comments APPEARANCE (test code = Clear Clear 4991603209) COLOR (test code = Yellow Yellow 2629828948) PH (test code = 4.8-8.0 0585992921) SP GRAVITY (test code = 1.003-1.030 H 4442298836) GLU U QUAL (test code = Normal Normal 8131104641) BLOOD (test code = Negative Negative 4725263141) KETONES (test code = Negative Negative 8908467468) PROTEIN (test code = Negative Negative 2887-8) UROBILIN (test code = 4.0 mg/dL Normal A 9604159976) BILIRUBIN (test code = Negative Negative 5788774078) NITRITE (test code = Negative Negative 2336956380) LEUK NICHOLE (test code = Negative Negative 0433745907) RBC/HPF (test code = See_Comment H [Autom ated message] 7504101678) The system [employer] generated this result transmit gulshan reference range : 0 - 3 HPF. The refe rence range was not u sed to interpret th is result as normal/abnormal . WBC/HPF (test code = See_Comment [Autom ated message] 6186741700) The system [employer] generated this result transmit gulshan reference range : 0 - 5 HPF. The refe rence range was not u sed to interpret th is result as normal/abnormal . BACTERIA (test code = Negative Negative 9059581614) SQ EPITH (test code = See_Comment [Auto mated message] 2466229347) The system [employer] generated this result transmit gulshan reference range : <=2 HPF. The refere nce range was not u sed to interpret th is result as normal/abnormal . Lab Interpretation (test Abnormal code = 10678-6) [facility] CenterType and Screen - ONCE [id number] 00:15:31 Test Item Value Reference Range Interpretation Comments ABO & RH (test code O POSITIVE Performe d at [facility] = 20) Laboratory [facility] Blood Bank3 [address] [facility] [address]Pomx Free: [phone] A No. [id number] IAT (test code = Negative Performed a t [facility] 1185) Laboratory [facility] Blood Bank3 [address] [facility] [address]Ficx Free: [phone] A No. [id number] [facility] CenterTROPONIN [id number] 00:04:00 Test Item Value Reference Range Interpretation Comments TROPONIN I (test 0.002 ng/mL See_Comment [Automated code = 8426737839) message] The system which generated this result [...] ? Lab Interpretation Normal (test code = 54716-6) [facility] CenterLIPID PANEL (93341)(TOTAL CHOLESTEROL, TRIGLYCERIDES, HDL)2018-11-15 23:58:00 Test Item Value Reference Range Interpretation Comments CHOL (test code = 289 mg/dL 120-200 H 0057131853) HDL (test code = 97 mg/dL >50 4575321441) HDLC RATIO (test code = See_Comment [Au tomated message] 6704120163) The system [employer] generated this result transmit gulshan reference range : <=4.5. The refe rence range was not u sed to interpret th is result as normal/abnormal . TRIG (test code = 52 mg/dL 30-170 5242750001) LDL CHOL (test code = 182 mg/dL See_Comment H [Auto mated message] 66859-1) The system [employer] generated this result transmit gulshan reference range : <=160. The refe rence range was not u sed to interpret th is result as normal/abnormal . VLDL (test code = 10 mg/dL 5-60 7898575809) Lab Interpretation (test Abnormal code = 70156-4) [facility] CenterCT ABDOMEN PELVIS W [id number] 17:09:23 1.?No acute intra-abdominal or pelvic abnormality. [...] No acute intra-abdominal or pelvic abnormality.2. Splenomegaly, unchanged.[facility] CenterACETAMINOPHEN 2018-11-15 16:52:00 Test Item Value Reference Range Interpretation Comments ACETAMINOP (test code = <10.0 10-30 L 2027941476) KIM (test code = KIM) Toxic: Greater than 200 ug/mL @ 4 hour post ingestion or greater than 50 ug/mL @ 12 hour post ingestion Lab Interpretation (test Abnormal code = 40641-7) [facility] CenterXR CHEST 1 [id number] 15:23:59 1.?No acute cardiopulmonary abnormality.* * * [...] Bones: No acute osseous abnormality is seen. [facility], Radiant Results Inft User - 11/15/2018 10:24 [...] osseous abnormality is seen.IMPRESSION1. No acute cardiopulmonary abnormality.[facility] CenterTroponin [id number] 15:19:00 Test Item Value Reference Range Interpretation Comments TROPONIN I (test 0.014 ng/mL See_Comment [Automated code = 3838273472) message] The system which generated this result [...] ? Lab Interpretation Normal (test code = 95912-7) [facility] CenterN-TERMINAL [id number] 15:16:00 Test Item Value Reference Range Interpretation Comments NT-proBNP (test code 29 pg/mL See_Comment [Autom ated = 5045126236) message] The system which generated this result transmitted reference range : <=125. The reference range was not used to interpret this result as normal/abnormal . KIM (test code = KIM) Biotin has been reported to cause a negative bias, interpret results relative to patient's use of biotin. Lab Interpretation Normal (test code = 80445-6) [facility] CenterBasi Metabolic Panel (NA, K, CL, CO2, GLUCOSE, BUN, CREATININE, CA)2018-11-15 15:07:00 Test Item Value Reference Range Interpretation Comments NA (test code = 142 mmol/L 135-145 5541947721) K (test code = 5.1 mmol/L 3.5-5 H 2476110856) CL (test code = 107 mmol/L 98-108 8182920436) CO2 TOTAL (test code = 26 mmol/L 23-31 2575120482) AGAP (test code = 2-16 0716603029) BUN (test code = 22 mg/dL 7-23 5399912138) GLUCOSE (test code = 93 mg/dL 70-110 0869437995) CREATININE (test code = 0.47 mg/dL 0.5-1.04 L 2698007211) CALCIUM (test code = 8.9 mg/dL 8.6-10.6 6845365793) eGFR Calculation mL/min/1.73m2 (Non-) (test code = 5771183717) eGFR Calculation mL/min/1.73m2 () (test code = 1803903440) KIM (test code = KIM) Association of [...] tests). Lab Interpretation Abnormal (test code = 31122-8) [facility] CenterHepatic Function Panel (ALB, T.PRO, BILI T, BU/BC, ALT, AST, ALK PHOS)2018-11-15 15:07:00 Test Item Value Reference Range Interpretation Comments TOTAL BILI (test code = 9654601655) 1.1 mg/dL 0.1-1.1 BILI UNCON (test code = 2135597561) 0.4 mg/dL 0.1-1.1 BILI CONJ (test code = 6886547333) 0.0 mg/dL 0-0.3 T PROTEIN (test code = 6999799925) 8.2 g/dL 6.3-8.2 ALBUMIN (test code = 8237382008) 4.2 g/dL 3.5-5 ALK PHOS (test code = 3719229135) 723 U/L 34-122 H ALT(SGPT) (test code = 4595284451) 196 U/L 9-51 H AST(SGOT) (test code = 6068877375) 194 U/L 13-40 H Lab Interpretation (test code = Abnormal 98057-5) [facility] CenterLipase [id number] 15:07:00 Test Item Value Reference Range Interpretation Comments LIPASE (test code = 1035075593) 185 U/L 0-220 Lab Interpretation (test code = Normal 62686-2) [facility] CenteraPTT2019-08-03 14:58:00 Test Item Value Reference Range Interpretation Comments APTT Patient (test See_Comment [Automat ed code = 3173-2) message] The system which generated this result transmitted reference range : 23 - 38 Seconds . The reference range was not used to interpr et this result as normal/abnormal . KIM (test code = KIM) The [facility] patient population mean normal value for aPTT is 30 seconds. Lab Interpretation Normal (test code = 84755-4) [facility] CenterProthrombin Time (PT) / [id number] 14:55:00 Test Item Value Reference Range Interpretation [...] tions. Lab Interpretation (test Normal code = 74687-8) [facility] CenterCBC WITH [id number] 14:47:00 Test Item Value Reference Range Interpretation Comments WBC (test code = See_Comment [Automated 0390-2) message] The sy stem which generated this result transmitted reference range : 4.30 - 11.10 10*3/?L. The reference range was not used to interpret this result as normal/abnormal . RBC (test code = See_Comment L [Automated 799-8) message] The sy stem which generated this [...] RDW-SD (test code = 47.1 fL 39-49.9 62876-7) RDW-CV (test code = 13.4 % 12-15.5 788-0) PLT (test code = See_Comment [Automated 777-3) message] The sy stem which generated this result transmitted reference range : 166 - 358 10*3/ ?L. The reference r luca was not used to interpret this result as normal/abnormal . MPV (test code = 10.0 fL 9.5-12.9 54051-5) NRBC/100 WBC (test See_Comment [Automat ed code = 0341879033) message] The system which generated this result transmitted reference range : 0.0 - 10.0 /100 WBCs. The refer ence range was not u sed to interpret th is result as normal/abnormal . NRBC x10^3 (test code <0.01 See_Comment [Auto mated = 8706136783) message] The s ystem which generated this result transmitted reference range : 10*3/?L. The reference range was not used to interpret this result as normal/abnormal . GRAN MAT (NEUT) % 54.5 % (test code = 770-8) IMM GRAN % (test code 0.40 % = 4919997470) LYMPH % (test code = 26.5 % 736-9) MONO % (test code = 10.5 % 5905-5) EOS % (test code = 7.4 % 713-8) BASO % (test code = 0.7 % 706-2) GRAN MAT x10^3(ANC) 2.43 10*3/uL 1.88-7.09 (test code = 4864835294) IMM GRAN x10^3 (test <0.03 0-0.06 code = 3836690854) LYMPH x10^3 (test code 1.18 10*3/uL 1.32-3.29 L = 731-0) MONO x10^3 (test code 0.47 10*3/uL 0.33-0.92 = 742-7) EOS x10^3 (test code = 0.33 10*3/uL 0.03-0.39 711-2) BASO x10^3 (test code 0.03 10*3/uL 0.01-0.07 = 704-7) Lab Interpretation Abnormal (test code = 72370-5) [facility] CenterCulture, [id number] 15:57:00 Test Item Value Reference Range Interpretation Comments Culture, Urine (test NF code = URC) Culture, Urine (test 10 NSF code = URC1) * This is an EDITED result. * A prior r esult that was reported as final has been changed. [id number] 22:53:00 Test Item Value Reference Range Interpretation [...] = UACAST) CAST LPF Urine Source: Urine Vnsmen38760 SURGICAL PATHOLOGY, LEVEL [id number] 14:31:00 [place] [address] Laboratory Printed: 07/09/[address] [place] [address] DAEMPathology Page: 1 Patient: ZEKE ALEMAN Birthdate: 1960 Age/Sex: 56/F Spec#: [id number]: HERMES SALAZAR Specimen Date: 07/08/17 [...] Conway Entered by:07/09/17 - 1429 MAY PROCEDURES: 72051, 93191/4 Patient: ZEKE ALEMAN Re07/03/17Loc: T4-A MR#: [id number] CONTINUED ON NEXT PAGE Dis: 07/09/17ta: DIS IN [address] [address] Laboratory Printed: 07/09/[address] [place] [address] DAEMPathology Page: 2 Patient: ZEKE ALEMAN [id number] (Continued) GROSS DESCRIPTION A. LIVER BIOPSY LEFT LOBE The specimen is received in 10% formalin, and is labeled with the patient's nameand "liverbiopsy". The specimen consists of three cores of snow soft tissue ranging from 0.7 to 2.1 cmin length, and each one measures less than 0.1 cm in diameter. The entire specimen issubmitted in one cassette. Dictated by: DANII SHAHID Entered by: 07/08/17 - 1316 LAB.YGP MICROSCOPIC DESCRIPTION A microscopic examination was performed to arrive at the diagnostic conclusion reported. Signed (Electronically Signed) Kelvin 07/09/17 Patient: ZEKE ALEMAN Re07/03/17Loc: T4-A MR#: [id number] END OF REPORT Dis: 07/09/17ta: DIS [id number] 05:13:00 Test Item Value Reference Range Interpretation [...] U/L 8-55 H = ALT) Reference Lab [id number] 04:14:00 Test Item Value Reference Range Interpretation Comments Reference Lab 10 U/mL 0-35 Laurent ECLIA Testing (test code methodolo gyPerformed at: HD = CA199) - [facility] [address] [place], [place] [id number] Di aimee: Chico Suero MD, Phone : [phone] Reference Lab [id number] 16:14:00 Test Item Value Reference Range Interpretation Comments Reference Lab Testing 128.5 Units 0.0-20.0 H Negat kourtney 0.0 - 20.0 (test code = MARLON) Equivocal 20.1 - 24.9 Positive >24.9Mitochondr ial (M2) Antibodies are found in 90-96% ofpatients with primary biliary cirrhosis.Perfo rmed at: BN - [facility] [address] [place], [place] [id number] Director: Pj Rider MD, [facility] ne: [phone] Reference Lab [id number] 16:14:00 Test Item Value Reference Range Interpretation [...] testing of p ositive sera with both AR-3 and MPO-ANCA enzyme immunoassays. A s many as 5% serumsamples are positive only b y EIA. Ref. AM J Clin Hwctnz0165;111: 507-513. Reference Lab <1:20 titer Neg:<1:20 The atypical p ANCA pattern Testing (test has been obser chelita in code = ATANCA) asignificant percentage of patients with u lcerative colitis,primary sclerosing cholangitis and autoimmune hepatitis.Perfo rmed at: BN - [facility] [address] [place], [place] [id number] Di aimee: Chester ramírez MD, Phone: [phone] [id number] 05:12:00 Test Item Value Reference Range Interpretation [...] 8-55 H code = ALT) Reference Lab [id number] 22:07:00 Test Item Value Reference Range Interpretation Comments Reference Lab Testing 785 IU/L 39-117 H (test code = ISOALKT) Reference Lab Testing 25 % 14-68 (test code = ISOALKBT) Reference Lab Testing 74 % 18-85 (test code = ISOALKLT) Reference Lab Testing 1 % 0-18 Perfor med at: HD - (test code = ISOALKIT) [facility] [place], [place] [id number] Director: Chico Suero MD, Phone: [phone] at: BN - [facility] [address] [place], [place] [id number] Di aimee: Chester ramírez MD, Phone: [phone] [id number] 11:48:00 Test Item Value Reference Range Interpretation [...] code = ALT) 92 U/L 8-55 H [id number] 06:08:00 Test Item Value Reference Range Interpretation [...] 8.5 mg/dL 7.8-10.44 N code = CA) [id number] 06:06:00 Test Item Value Reference Range Interpretation [...] code = ALT) 129 U/L 8-55 H [id number] 05:57:00 Test Item Value Reference Range Interpretation [...] code = BASO#) 0.0 thou/uL 0.0-0.2 N [id number] 05:55:00 Test Item Value Reference Range Interpretation [...] 3.0 - 4.0 CRITICAL: > 4.0 Anticoagulant? [id number] 05:36:00 Test Item Value Reference Range Interpretation [...] 8.9 mg/dL 7.8-10.44 N code = CA) [id number] 05:33:00 Test Item Value Reference Range Interpretation [...] code = ALT) 160 U/L 8-55 H [id number] 05:28:00 Test Item Value Reference Range Interpretation [...] 0.1 thou/uL 0.0-0.2 N Chemistry - Elizabeth [id number] 13:02:00 Test Item Value Reference Range Interpretation [...] hod: Enzyme Linked Fluorescent Immunoassay (Elizabeth)Reference s: [employer] Elizabeth Package Inserts - Directions forU , June,August 02, [place]. [id number] 05:00:00 Test Item Value Reference Range Interpretation [...] code = ALT) 144 U/L 8-55 H [id number] 04:50:00 Test Item Value Reference Range Interpretation [...] 8.4 mg/dL 7.8-10.44 N code = CA) [id number] 04:39:00 Test Item Value Reference Range Interpretation [...] code = BASO#) 0.0 thou/uL 0.0-0.2 N [id number] 17:07:00 Test Item Value Reference Range Interpretation Comments Chemistry (test code = IGG) 1032.00 mg/dL 552-1631 N Smtwnhfaz5289-90-32 17:07:00 Test Item Value Reference Range Interpretation Comments Chemistry (test code = IGM) 215.00 mg/dL 33-293 N [id number] 00:50:00 Test Item Value Reference Range Interpretation [...] UABLD) Urine Source: Urine Clean CatchChemistry - [id number] 00:25:00 Test Item Value Reference Range Interpretation Comments Chemistry - Specials (test Non-Reactive NonReactive code = THEPAIGM) Chemistry - Specials (test Non-Reactive S/CO NonReactive code = THBSAG) Chemistry - Specials (test Non-Reactive NonReactive code = INTHBCM) Chemistry - Specials (test Non-Reactive NonReactive code = INTHEPC) [id number] 22:12:00 Test Item Value Reference Range Interpretation [...] code 196 U/L 8-55 H = ALT) [id number] 22:12:00 Test Item Value Reference Range Interpretation Comments Chemistry (test code = LIP) 22 U/L 8-78 N [id number] 21:50:00 Test Item Value Reference Range Interpretation [...] code = BASO#) 0.1 thou/uL 0.0-0.2 N [id number] 22:49:00 Test Item Value Reference Range Interpretation [...] 78 U/L 8-55 H code = ALT) [id number] 22:49:00 Test Item Value Reference Range Interpretation Comments Chemistry (test code = LIP) 12 U/L 8-78 N [id number] 22:24:00 Test Item Value Reference Range Interpretation [...] code = BASO#) 0.0 thou/uL 0.0-0.2 N [id number] 22:00:00 Test Item Value Reference Range Interpretation [...] UABLD) Negative Negative Urine Source: Urine Clean [id number] 09:28:00 Test Item Value Reference Range Interpretation Comments Accuchek (test code = ACU) 99 mg/dL 70-110 N Cxjgplnfdm7651-25-23 09:14:00 Test Item Value Reference Range Interpretation [...] UABLD) Negative Negative Urine Source: Urine Clean [id number] 21:28:00 Test Item Value Reference Range Interpretation [...] UABLD) Negative Negative Urine Source: Urine Clean [id number] 21:09:00 Test Item Value Reference Range Interpretation [...] 95 U/L 8-55 H code = ALT) [id number] 21:09:00 Test Item Value Reference Range Interpretation Comments Chemistry (test code = LIP) 39 U/L 8-78 N Gmzbxlkpiq1915-12-52 20:49:00 Test Item Value Reference Range Interpretation [...] code = BASO#) 0.0 thou/uL 0.0-0.2 N [id number] 21:34:00 Test Item Value Reference Range Interpretation [...] NotDetected (test code = PPX) Toxicology [employer] Pro file-V Panel (test code = for [...] Antidepressants 300 ng/mLCannabinoi ds (THC) 50 ng/mLTests w hich yield a presumptive p ositive result must bet ested using a more specific alternate chemical method inorder to obtain a confir med analytical resu lt. Additionalconfi rmation and identification may be ordered on a ro utinebasis, if desired. Pre sumptive positive urines are held fortwo weeks. Urine Source: Urine Clean [id number] 19:17:00 Test Item Value Reference Range Interpretation [...] = UABLD) Negative Negative Urine Source: Urine [id number] 18:48:00 Test Item Value Reference Range Interpretation [...] code 84 U/L 8-55 H = ALT) [id number] 18:48:00 Test Item Value Reference Range Interpretation Comments Chemistry (test code = JORGE) 53.0 U/L 25-125 N [id number] 18:48:00 Test Item Value Reference Range Interpretation Comments Chemistry (test code = LIP) 10 U/L 8-78 N [id number] 18:19:00 Test Item Value Reference Range Interpretation [...] = BASO#) 0.1 thou/uL 0.0-0.2 N Culture, [id number] 10:22:00 Test Item Value Reference Range Interpretation Comments Culture, Urine (test code = URC) NF N Culture, Urine (test code = URC1) 10 MSF N [id number] 17:38:00 Test Item Value Reference Range Interpretation Comments Chemistry (test code = PHOS) 2.9 mg/dL 2.3-4.7 N [id number] 17:04:00 Test Item Value Reference Range Interpretation [...] H = ALT) Chemistry - BNP, HgbA1c, [id number] 17:04:00 Test Item Value Reference Range Interpretation Comments Chemistry - BNP, 4.9 % 4.0-6.0 N Therapeutic goals for glycemic HgbA1c, PTHi (test control ( ADA)Adults:- Goal of code = YEEL4VK) therapy: Les s than 7.0% HbA1c- Action suggeste d: Greater than 8.0% RoO3qXjtpa tric patients:- Toddlers and pr eschoolers: Less than 8.5% (but Greater than 7.5%)- Katelynn ool age (6-12 years): Less th an 8%- Adolescents and young adults (13-19 years): Less than 7.5%Diagnosing diabetes (ADA)- HbA1c: Greater than or equal to 6.5% Values of 5.7 - 6.4% indicate HIGH r isk for developing DiabetesInterna tional Expert Committee Repor t on the Role of the A7ALwprj in the Diagnosis of Di abetes. Diabetes Care 2009July;32(7): 1327-1334ADA, Diagnosis class ification of diabetes mellit us.Diabetes Care 2010; 33 S uppl 1:S62 [id number] 16:59:00 Test Item Value Reference Range Interpretation Comments Chemistry (test code = CRP) 1.16 mg/dL = or < 0.5 H What test does the doctor want? C-REACTIVE PROTEIN (CRP)[id number] 16:53:00 Test Item Value Reference Range Interpretation [...] HPF None Seen Urine Source: Urine Clean [id number] 16:46:00 Test Item Value Reference Range Interpretation [...] code = BASO#) 0.1 thou/uL 0.0-0.2 N [id number] 21:59:00 Test Item Value Reference Range Interpretation [...] Urine Clean CatchSepsis - Lactic Acid >2 [id number] 23:59:00 Test Item Value Reference Range Interpretation Comments Sepsis - Lactic Additional Lactate testin g will be Acid >2 Rflx performed in 3 hrs (test code = according to kenny PXMTQ4C) SepsisProtocol. [id number] 21:12:00 Test Item Value Reference Range Interpretation Comments Chemistry (test code = JORGE) 59.0 U/L 25-125 N [id number] 20:59:00 Test Item Value Reference Range Interpretation [...] 87 U/L 8-55 H code = ALT) [id number] 20:59:00 Test Item Value Reference Range Interpretation Comments Chemistry (test code = LIP) 32 U/L 8-78 N Chemistry - [id number] 20:59:00 Test Item Value Reference Range Interpretation Comments Chemistry - Lactate (test code = 2.1 mmol/L 0.5-2.2 N LACTSEP-T) [id number] 20:43:00 Test Item Value Reference Range Interpretation [...] = UABLD) Negative Negative Urine Source: Urine [id number] 20:37:00 Test Item Value Reference Range Interpretation [...]
--- NOTE | 2022-01-10 12:06 | RAD REPORT ---
EXAM DESCRIPTION: RAD - Hip Right 2 View - 01/10/2022 10:21 am CLINICAL HISTORY: PAIN COMPARISON: No comparisons FINDINGS: Mild arthritic changes are present right hip. No fracture, dislocation or AVN.
--- NOTE | 2022-01-10 12:10 | ER ---
Nurse's Notes [facility] Name: Yessenia Aleman Age: 61 yrs Sex: Female : 1960 Arrival Date: 01/10/2022 Time: 10:01 Bed 12 Private MD: Jeannie Slade Diagnosis: Pain in right hip Presentation: 01/10 10:05 Chief complaint: Patient states: I am having severe pain in my right hip all the way bm7 down to my leg. I can't sleep and I can hardly walk. I have been taking a lot of motrin and it hasn't helped at all. I called my doctor and they said to come here. Coronavirus screen: At this time, the client does not indicate any symptoms associated with coronavirus-19. Ebola Screen: No symptoms or risks identified at this time. Initial Sepsis Screen: Does the patient meet any 2 criteria? No. Patient's initial sepsis screen is negative. Does the patient have a suspected source of infection? No. Patient's initial sepsis screen is negative. Risk Assessment: Do you want to hurt yourself or someone else? Patient reports no desire to harm self or others. Onset of symptoms was January 10, 2022. 10:05 Method Of Arrival: Ambulatory bm7 10:05 Acuity: HOLLI 3 bm7 Triage Assessment: 10:07 General: Appears in no apparent distress. uncomfortable, Behavior is calm, cooperative, bm7 appropriate for age. Pain: Complains of pain in left leg. EENT: No deficits noted. No signs and/or symptoms were reported regarding the EENT system. Neuro: No deficits noted. Cardiovascular: No deficits noted. Respiratory: No deficits noted. GI: No deficits noted. No signs and/or symptoms were reported involving the gastrointestinal system. : No deficits noted. No signs and/or symptoms were reported regarding the genitourinary system. Derm: No deficits noted. No signs and/or symptoms reported regarding the dermatologic system. Musculoskeletal: Reports pain in left leg. Historical: - Allergies: 10:07 No Known Allergies; bm7 - Home Meds: 10:07 Unable to obtain [Active]; bm7 - PMHx: 10:07 Anxiety; Arthritis; biliary chirrosis; biliary disease; Cirrhosis; Hypertension; bm7 Pancreatitis; - PSHx: 10:07 Appendectomy; Biliary stent removal; Biliary stents; Cholecystectomy; bm7 - Immunization history:: Adult Immunizations up to date, Client reports receiving the 2nd dose of the Covid vaccine, Client reports receiving the 1st dose of the Covid vaccine. - Social history:: Smoking status: Patient denies any tobacco usage or history of. Screenin:19 Abuse screen: Denies threats or abuse. Nutritional screening: No deficits noted. bm7 Tuberculosis screening: No symptoms or risk factors identified. Fall Risk None identified. Assessment: 10:19 Reassessment: No changes from previously documented assessment. bm7 11:59 Reassessment: Patient and/or family updated on plan of care and expected duration. Pain bm7 level reassessed. Patient is alert, oriented x 3, equal unlabored respirations, skin warm/dry/pink. Vital Signs: 10:05 Pulse 84; Resp 16; Temp 98.0(TE); Pulse Ox 100% on R/A; Weight 74.84 kg (R); Height 5 bm7 ft. 0 in. (152.40 cm); Pain 10/10; 12:24 BP 148 / 70; Pulse 76; Resp 16; Pulse Ox 100% on R/A; Pain 5/10; bm7 10:05 Body Mass Index 32.22 (74.84 kg, 152.40 cm) bm7 ED Course: 10:01 Patient arrived in ED. rg4 10:01 Jeannie Slade MD is Private Physician. rg4 10:04 [facility] jl9 10:04 Meek Fitzpatrick MD is Attending Physician. jl9 10:05 Arm band placed on right wrist. bm7 10:07 Triage completed. bm7 10:19 Alice Holder, RN is Primary Nurse. bm7 10:19 Patient has correct armband on for positive identification. Bed in low position. Call bm7 light in reach. Client placed on continuous cardiac and pulse oximetry monitoring. NIBP monitoring applied. Warm blanket given. 10:19 No provider procedures requiring assistance completed. Patient maintains SpO2 bm7 saturation greater than 95% on room air. 10:36 No apparent distress. Resting quietly. Awaiting radiology results. bm7 10:36 Patient did not have IV access during this emergency room visit. bm7 10:51 XRAY Hip RIGHT 2 view In Process Unspecified. EDMS Administered Medications: 10:31 Drug: [place] (HYDROcodone-acetaminophen) 10 mg-325 mg 1 tabs Route: PO; bm7 10:37 Follow up: Response: Pain is decreased bm7 Medication: 10:19 VIS not applicable for this client. bm7 Outcome: 12:09 Discharge ordered by MD. rivera 12:24 Discharged to home ambulatory. bm7 12:24 Condition: good 12:24 Discharge instructions given to patient, Instructed on discharge instructions, follow up and referral plans. medication usage, Demonstrated understanding of instructions, follow-up care, medications, Prescriptions given X 1. 12:25 Patient left the ED. bm7 Signatures: Dispatcher [employer] EDMS Kinjal Estrada rg4 Alice Holder, RN RN bm7 Esteban Morales9
--- NOTE | 2022-01-10 12:10 | EDPHYS ---
Physician Documentation [facility] Name: Yessenia Aleman Age: 61 yrs Sex: Female : 1960 Arrival Date: 01/10/2022 Time: 10:01 Bed 12 Private MD: Jeannie Slade ED Physician Meek Fitzpatrick HPI: 01/10 10:38 This 61 yrs old Female presents to ER via Ambulatory with complaints of right jl9 pain pain from her arthritis. Patient denies any recent trauma and reports that she used to see pain management but stopped going a few months ago. . 10:38 The patient presents with a history of running out of pain medications, pain. The jl9 complaints affect the right hip. Context: The problem was sustained. Onset: The symptoms/episode began/occurred yesterday. Modifying factors: The symptoms are alleviated by remaining still, the symptoms are aggravated by movement. Associated signs and symptoms: The patient has no apparent associated signs or symptoms. Treatment prior to arrival includes: over the counter medications. The patient has experienced similar episodes in the past. Historical: - Allergies: 10:07 No Known Allergies; bm7 - Home Meds: 10:07 Unable to obtain [Active]; bm7 - PMHx: 10:07 Anxiety; Arthritis; biliary chirrosis; biliary disease; Cirrhosis; Hypertension; bm7 Pancreatitis; - PSHx: 10:07 Appendectomy; Biliary stent removal; Biliary stents; Cholecystectomy; bm7 - Immunization history:: Adult Immunizations up to date, Client reports receiving the 2nd dose of the Covid vaccine, Client reports receiving the 1st dose of the Covid vaccine. - Social history:: Smoking status: Patient denies any tobacco usage or history of. ROS: 10:39 Constitutional: Negative for fever, chills, and weight loss, Eyes: Negative for injury, jl9 pain, redness, and discharge, ENT: Negative for injury, pain, and discharge, Neck: Negative for injury, pain, and swelling, Cardiovascular: Negative for chest pain, palpitations, and edema, Respiratory: Negative for shortness of breath, cough, wheezing, and pleuritic chest pain, Abdomen/GI: Negative for abdominal pain, nausea, vomiting, diarrhea, and constipation, Back: Negative for injury and pain, : Negative for injury, bleeding, discharge, and swelling. 10:39 Skin: Negative for injury, rash, and discoloration, Neuro: Negative for headache, weakness, numbness, tingling, and seizure, Psych: Negative for depression, anxiety, suicide ideation, homicidal ideation, and hallucinations, Allergy/Immunology: Negative for hives, rash, and allergies, Endocrine: Negative for neck swelling, polydipsia, polyuria, polyphagia, and marked weight changes, Hematologic/Lymphatic: Negative for swollen nodes, abnormal bleeding, and unusual bruising. 10:39 MS/extremity: Positive for Right hip pain.. Exam: 10:39 Constitutional: This is a well developed, well nourished patient who is awake, alert, jl9 and in no acute distress. Head/Face: Normocephalic, atraumatic. Eyes: Pupils equal round and reactive to light, extra-ocular motions intact. Lids and lashes normal. Conjunctiva and sclera are non-icteric and not injected. Cornea within normal limits. Periorbital areas with no swelling, redness, or edema. ENT: Mucous membranes moist. Neck: Trachea midline, no thyromegaly or masses palpated, and no cervical lymphadenopathy. Supple, full range of motion without nuchal rigidity, or vertebral point tenderness. No Meningismus. Chest/axilla: Normal chest wall appearance and motion. Nontender with no deformity. No lesions are appreciated. Cardiovascular: Regular rate and rhythm with a normal S1 and S2. No gallops, murmurs, or rubs. Normal PMI, no JVD. No pulse deficits. Respiratory: Lungs have equal breath sounds bilaterally, clear to auscultation and percussion. No rales, rhonchi or wheezes noted. No increased work of breathing, no retractions or nasal flaring. Abdomen/GI: Soft, non-tender, with normal bowel sounds. No distension or tympany. No guarding or rebound. No evidence of tenderness throughout. Back: No spinal tenderness. No costovertebral tenderness. Full range of motion. Skin: Warm, dry with normal turgor. Normal color with no rashes, no lesions, and no evidence of cellulitis. 10:39 Neuro: Awake and alert, GCS 15, oriented to person, place, time, and situation. Cranial nerves II-XII grossly intact. Motor strength 5/5 in all extremities. Sensory grossly intact. Cerebellar exam normal. Normal gait. Psych: Awake, alert, with orientation to person, place and time. Behavior, mood, and affect are within normal limits. 10:39 Musculoskeletal/extremity: Extremities: grossly normal except: Right pain pain., ROM: no acute changes, Circulation is intact in all extremities. Sensation intact. Vital Signs: 10:05 Pulse 84; Resp 16; Temp 98.0(TE); Pulse Ox 100% on R/A; Weight 74.84 kg (R); Height 5 bm7 ft. 0 in. (152.40 cm); Pain 10/10; 12:24 BP 148 / 70; Pulse 76; Resp 16; Pulse Ox 100% on R/A; Pain 5/10; bm7 10:05 Body Mass Index 32.22 (74.84 kg, 152.40 cm) bm7 MDM: 10:04 Patient medically screened. jl9 10:40 Data reviewed: vital signs, nurses notes. Counseling: I had a detailed discussion with jl9 the patient and/or guardian regarding: the historical points, exam findings, and any diagnostic results supporting the discharge/admit diagnosis, radiology results, the need for outpatient follow up, to return to the emergency department if symptoms worsen or persist or if there are any questions or concerns that arise at home. Response to treatment: the patient's symptoms have markedly improved after treatment. 01/10 10:08 Order name: XRAY Hip RIGHT 2 view; Complete Time: 12:09 jl9 Administered Medications: 10:31 Drug: [place] (HYDROcodone-acetaminophen) 10 mg-325 mg 1 tabs Route: PO; [facility] 10:37 Follow up: Response: Pain is decreased 7 Disposition: 17:30 Co-signature as Attending Physician, Meek Fitzpatrick MD. rn Disposition Summary: 01/10/22 12:09 Discharge Ordered Location: Home jl9 Condition: Stable jl9 Diagnosis - Pain in right hip jl9 Followup: jl9 - With: Private Physician - When: 1 - 2 days - Reason: Recheck today's complaints, Continuance of care, Re-evaluation by your physician Discharge Instructions: - Discharge Summary Sheet jl9 - Hip Pain jl9 Forms: - Medication Reconciliation Form jl9 - Thank You Letter jl9 - Work release form bm7 - Antibiotic Education jl9 - Prescription Opioid Use jl9 Prescriptions: - Ibuprofen 800 mg Oral Tablet - take 1 tablet by ORAL route every 12 hours As needed take with food; 20 tablet; jl9 Refills: 0, Product Selection Permitted Signatures: Dispatcher [employer] Meek Amador MD MD rn McCarthy, Brittany, RN RN bm7 Linares, John jl9
[2022-01-12 07:58] VITALS: TEMP 98; O2SAT 100
[2022-01-12 08:04] VITALS: BP 148/70
== END 2022-01-10 12:25 | disposition home or self-care (01) ==
LOC: ER 09:55
DX: M25.551 Pain in right hip (principal); I10 Essential (primary) hypertension
CPT/HCPCS: 99284

== ENCOUNTER 2022-02-01 20:51 | Emergency (ER) | payer OTHER ==
--- OUTSIDE RECORDS SUMMARY | 2022-02-01 21:34 | XMS REPORT | Continuity of Care Document ---
:1960 Author Organization [facility] t Address [address] [place] [address] Care Team Providers Name Role Phone INDIRA MONTERROSO Primary Care Physician Unavailable Jeannie Slade Attending Clinician Unavailable GULSHAN PIPER Attending Clinician Unavailable KENROY AVILEZ Attending Clinician Unavailable MOISE GAMEZ Attending Clinician Unavailable ANA MARÍA PENNY Attending Clinician Unavailable BRAULIO NGUYỄN Attending Clinician Unavailable MILAGROS OHARA Attending Clinician Unavailable MEKA HAMMONDS Attending Clinician Unavailable Nasra INDUSTRIAL WORKERS, Meka Richey Attending Clinician VIRA WASHBURN Attending Clinician Unavailable Doctor Unassigned, Risco Attending Clinician Unavailable MARIANA RAMIREZ Attending Clinician Unavailable Mariana Ramirez MD Attending Clinician ZULEMA RODRIGUEZ JR Attending Clinician Unavailable Jennifer Cervantes, DPM, Zulema Stokes Attending Clinician Abe Arana CRNA Attending Clinician Margarito Jerome MD Attending Clinician Only, Adc Test Attending Clinician Unavailable Pob, Adc Lab Main Attending Clinician Unavailable Trinidad KAN, Cyn Steiner Attending Clinician Unavailable RAF GREENE Attending Clinician Unavailable Collin PAC, K Sydnie Attending Clinician Raf Greene DO Attending Clinician Wayne WEBSTER, Won Roper Attending Clinician MARU BAEZ Attending Clinician Unavailable Maru Baez DO Attending Clinician Jovita KAN, Lanny Attending Clinician Unavailable FRED GRADY Attending Clinician Unavailable Micaela WEBSTER, Liliya Attending Clinician Fred Grady MD Attending Clinician Gulshan Piper MD Attending Clinician EBCONSUELO OTTO Attending Clinician Unavailable Ebgilmer LACE ROLLER OPERATOR Ranrisa Attending Clinician Kelly KAN, Kelsy Lemon Attending Clinician Unavailable Phillip [facility] Attending Clinician Unavailable Korina Zhao Attending Clinician KORINA ALBERTO Attending Clinician Unavailable TOSHA PALACIO Attending Clinician Unavailable Gustavo, Ang Jaiden Uc Attending Clinician Unavailable Tosha Palacio MD Attending Clinician ROSALINDA FISHER Attending Clinician Unavailable Rosalinda Fisher MD Attending Clinician Karo KAN, Karlene Hawley Attending Clinician Unavailable Vira Washburn MD Attending Clinician Zulema LACE ROLLER OPERATOR, Alirio F Attending Clinician ALIRIO POOLE F Attending Clinician Unavailable Kadi Duggan MD Attending Clinician Uriel Santo MD Attending Clinician URIEL SANTO Attending Clinician Unavailable Maisha Bledsoe Attending Clinician MAISHA REYES Attending Clinician Unavailable SULAIMAN MARSH Attending Clinician Unavailable Vera WEBSTER, Moise Goodman Attending Clinician Jaki POLANCO Attending Clinician Unavailable Rayray Ayala MD, Leonard Attending Clinician Asaf LACE ROLLER OPERATOR, Kirstin Attending Clinician Lab, Adc Fam Pob I Attending Clinician Unavailable Kyay LACE ROLLER OPERATOR, Loyda Attending Clinician Jeannie Slade Ly Attending Clinician Kenan WEBSTER, Erasmo Goodman Attending Clinician Mazin WEBSTER, Katheryn Attending Clinician Diego Grigsby MD, Kobi Attending Clinician ERASMO GRAYSON Attending Clinician Unavailable Gary Skaggs DO Attending Clinician GARY SKAGGS Attending Clinician Unavailable Milagros Ohara MD Attending Clinician Ector Barnett S Attending Clinician Pricilla Smith RN Attending Clinician Sundar Brooke MD Attending Clinician Maxim WEBSTER, Carlito Attending Clinician Gisselle Mai INDUSTRIAL WORKERSRyanC Attending Clinician Unavailable Boogie Cox Attending Clinician Unavailable PROVIDER, ED TEMP Attending Clinician Unavailable HOMAR LOVELACE Attending Clinician Unavailable To, Bradford Attending Clinician Unavailable GREGORY PONCE Attending Clinician Unavailable DIANA CASTILLO Attending Clinician Unavailable GULSHAN PIPER Admitting Clinician Unavailable KENROY AVILEZ Admitting Clinician Unavailable MOISE GAMEZ Admitting Clinician Unavailable ANA MARÍA PENNY Admitting Clinician Unavailable BRAULIO NGUYỄN Admitting Clinician Unavailable MEKA HAMMONDS Admitting Clinician Unavailable RAF GREENE Admitting Clinician Unavailable ZULEMA RODRIGUEZ JR Admitting Clinician Unavailable Jennifer Cervantes, DPZulema Montes De Oca Admitting Clinician WON MALONE Admitting Clinician Unavailable Won Malone MD Admitting Clinician MARU BAEZ Admitting Clinician Unavailable LILIYA HINOJOSA Admitting Clinician Unavailable Liliya Hinojosa MD Admitting Clinician Gulshan Piper MD Admitting Clinician MARIANA RAMIREZ Admitting Clinician Unavailable CONSUELO AVENDAÑO Admitting Clinician Unavailable ROSALINDA FISHER Admitting Clinician Unavailable ALIRIO POOLE Admitting Clinician Unavailable Kadi Duggan MD Admitting Clinician KADI DUGGAN Admitting Clinician Unavailable Moise Gamez MD Admitting Clinician Jaki POLANCO Admitting Clinician Unavailable Diego Grigsby MD, Kobi Admitting Clinician ERASMO GRAYSON Admitting Clinician Unavailable GARY SKAGGS Admitting Clinician Unavailable Carlton Pan MD Admitting Clinician Boogie Cox Admitting Clinician Unavailable Payers Payer Name Policy Type Policy Number Effective Date Expiration Date Maxine hammonds [employer] [id number] 2021spring 00:00:00 MEDICARE PART A [id number] 2015 \\T\\ B [facility]:00[id number] 2018 00:00:00 MEDICARE A B [id number] 2015 00:00:00 [employer] [id number] 2018 HMO/POS/OPEN 00:00:00 ACCESS BCBS OS [id number] 2020 POS/PPO/EPO 1 00:00:00 00:00:00 [employer] 53 [id number] 2021 [facility] roberta ing MCR Replace 00:00:00 - [facility] CIGNA 53 [id number] 2018 [facility] 00:00:00 - [facility] MEDICARE MB [id number] 2016 [facility] NOVITAS 00:00:00 - [facility] Problems Condition Condition Condition Status Onset Resolution Last Treating Co mments Source Name Details Category Date Date Treatment Clinician Date RUQ pain RUQ pain Disease Active Unive rs 5-20 ity of 00:00: [place] [facility] Acute on Acute on Disease Active Unive rs chronic chronic 4-10 [place] [facility] 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 [place] cirrhosis [place] [facility] Pancreatit Pancreatit Disease Active [facility] is, acute is, acute 5-25 [facility] s 00:00: [facility] 00 [place] Primary Primary Disease Active [facility] 5[facility]16 [facility] cirrhosis cirrhosis 00:00: [facility] 00 Center S/P ERCP S/P ERCP Disease Active [facility] 00:00: [facility] 00 Center Cerebrovas Cerebrovas Disease Active 2019-04 U nivers cular cular 0-22 ity of accident accident 00:00: [place] (CVA) due (CVA) due 00 [facility] 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 Arthritis Arthritis Disease Active 2019-04 Uni vers 0-21 ity of 00:00: [place] [facility] Toxic Toxic Disease Active 2019-04 Univers metabolic metabolic 0-20 ity of encephalop encephalop 00[place] 00 Medical Branch Altered Altered Disease Active 2019-04 Univers mental mental 0-18 ity of status status 00:00: [place] [facility] Branch Abdominal Abdominal Disease Active Uni vers pain pain 8-03 ity of 00:00: [place] 00 Medical Branch Peripheral Peripheral Disease Active 2019-0 U nivers nerve nerve 7-10 ity of disease disease 00:00: [place] 00 Medical Branch Choledocho Choledocho Disease Active 2018-0 U nivers lithiasis lithiasis 7-20 ity of 00:00: [place] 00 Medical Branch Constipati Constipati Disease Active 2018-0 U nivers on on 7-18 ity of 00:00: [place] 00 Medical Branch Acute Acute Disease Active 2018 Univers appendicit appendicit 6-10 it y of is is 00:00: [place] [facility] Transamini Transamini Disease Active 2017 U nivers tis tis 8-17 ity of 00:00: [place] 00 Medical Branch Acute Acute Disease Active 2017- Univers cystitis cystitis 8-15 ity of without without 00:00: [place] hematuria hematuria 00 [facility] History of History of Disease Active U nivers biliary biliary 8-15 ity of duct [place] 00 [facility] 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 vomiting 00:00: [place] with with 00 Medical nausea nausea Branch Intractabl Intractabl Disease Active U nivers e e 8-15 ity of epigastric epigastric [place] abdominal abdominal 00 [facility] pain pain Branch Obesity Obesity Disease Active 2015-04 Univers (BMI (BMI 1-17 ity of 30-39.9) 30-39.9) 00:00: [place] 00 Medical Branch Abdominal Abdominal Disease Active [...] periodic 7-27 Shari kes paralysis paralysis 00:00: [facility] 00 Center Biliary Biliary Disease Active [facility] disease disease 5-16 [facility] 00:00: Medical 00 Center Abdominal Abdominal Disease Active [facility] pain, pain, -09 [facility] other other 00:00: Medical specified specified 00 Cent er site site Primary Primary Disease Active [facility] biliary biliary 5-05 [facility] cholangiti cholangiti 00:00: Ut dical s s 00 [place] Acute Acute Disease Active [facility] pancreatit pancreatit 5-05 Shari kes is is 00:00: Medical 00 [place] Chronic Chronic Disease Active 2012-[address] pancreatit pancreatit 1-14 Shari kes is is 00:00: Medical 00 [place] Elevated Elevated Disease Active 2012-04 [facility] liver liver -08 [facility] enzymes enzymes 00:00: Medical 00 [place] Hypertensi Hypertensi Disease Active 2012-[address] on on 04-22 [facility] 00:00: Medical 00 [place] Nausea & Nausea & Disease Active 2012-04 [facility] vomiting vomiting 08 [facility] 00:00: Medical 00 [place] Fatty Fatty Disease Active 2012-[address] liver liver 1-08 [facility] 00:00: Medical 00 [place] Alcohol Alcohol Disease Active 2012-[address] use use -08 [facility] 00:00: Medical 00 [place] Immunity Immunity Disease Active 2012-04 [facility] status status 04-22 [facility] testing testing 00:00: Medical 00 [place] Abdominal Abdominal Disease Active 2012-[address] pain pain -08 [facility] 00:00: Medical 00 [place] 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 -08 [facility] 00:00: Medical 00 [place] Iron Iron Problem Common deficiency deficiency Sp rboerta anemia anemia, - [facility] un[facility]ie [facility] d iron [facility] deficiency Medica l anemia Center type [id number] Neuropathy Problem Co mmon Spirit - [facility] 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 - CHI hemorrhage disease St , without [facility] perforatio Medica l n AND Center without obstructio n [id number] Other Problem Common chronic Spirit pain - [facility] [id number] Osteoarthr Problem Co mmon itis Spirit involving - [facility] multiple St joints on [facility] both sides Medica l of body Center Gastroesop Gastroesop Problem C ommon hageal hageal Spirit reflux reflux - CHI disease disease St without without [facility]ukes esophagiti esophagiti Ut dical s s [place] [id number] Moderately Problem Co mmon severe Spirit depression - [facility] Adjustment Grieving Problem Com mon disorder Spirit with - [facility] depressed [facility] mood [facility] Essential Essential Problem Com mon hypertensi hypertensi Sp roberta on on - [facility] [id number] Anxiety Problem Common [facility] Primary Primary Problem Common insomnia insomnia [facility] [id number] Peptic Problem Common ulcer [facility] disease [facility] [id number] Post-menop Problem Com mon ausal Spirit bleeding [facility] [id number] Seasonal Problem Comm on allergies [facility] Allergies, Adverse Reactions, Alerts Allergy Allergy Status Severity Reaction(s) Onset Inactive Treating Comm ents Source Name Type Date Date Clinician ACETAMIN DRUG Active ITCHING Univers OPHEN-CO 6-17 ity of DEINE 00:00: [place] 00 Medical Branch Acetamin Propensi Active Itching Unive rs ophen-Co ty to 6-17 ity of deine adverse 00:00: [place] reaction Medical s Branch Codeine Propensi Active Itching 2014-04 Univer s ty to 0-31 ity of adverse 00:00: [place] reaction 00 Medical s Branch CODEINE Allergy Active High Rash 2012-04 [facility] 0-30 00:00: 00 Codeine Drug Active Rash 2012-[address] [facility] Allergy 0-30 [facility] 00:00: [address] Codeine Propensi Active Rash 2012-04 Univers ty to 0-30 ity of adverse 00:00: [place] reaction 00 Medical s Branch CODEINE DRUG Active High ITCHING 2012-04 Univers INGREDI 0-30 ity of 00:00: [place] [address] Medical Branch NO KNOWN Drug Active Univers ALLERGIE Class ity of S [place] [facility] Family History Family Member Diagnosis Comments Start Date Stop Date Source Natural brother Cancer [facility] Social History Social Habit Start Date Stop Date Quantity Comments Source History SDOH University o f Alcohol Std [place] Medical Drinks Branch History SDOH University o f Alcohol Binge [place] Medic al Branch History SDOH University o f Alcohol Comment [place] Med ical Branch History of [facility] - Tobacco Use [facility] Exposure to 2022-01-16 2022-01-26 Not sure University of SARS-CoV-2 00:00:00 15:26:00 [place] Medical (event) Branch Alcohol intake 2020-09-06 2020-09-[address] [facility] 00:00:00 00:00:00 non-drinker of Medical Ce nter alcohol (finding) Tobacco use and 2018-11-15 2018-11-15 Smokeless tobacco Un iversity of exposure 00:00:00 00:00:00 non-user [place] [facility] History [facility] 2018-11-15 2018-11-15 1 University o f Alcohol Frequency 00:00:00 00:00:00 [facility] [place] edical Branch History [facility] 2018-11-15 2018-11-15 3 University o f Financial 00:00:00 00:00:00 [place] [facility] History [facility] Food 2018-11-15 2018-11-15 1 Univers ity of Worry 00:00:00 00:00:00 [place] [facility] History [facility] Food 2018-11-15 2018-11-15 1 Univers ity of Scarcity 00:00:00 00:00:00 [place] [facility] History [facility] 2018-11-15 2018-11-15 2 University o f Transport Med 00:00:00 00:00:00 [place] Medic al Branch History [facility] 2018-11-15 2018-11-15 2 [facility] o f Transport Non-Med 00:00:00 00:00:00 [facility] Sex Ass[birth year] At [birth year] ANDRES Morrell kes 00:00:00 00:00:00 Medical Center Smoking Status Start Date Stop Date Source Never smoked tobacco [facility] Medications Ordered Filled Start Stop Current Ordering Indication Dosage Frequency Signature Comments Components Source Medication Medication Date Date Medication? Clinician (SIG) Name Name labetaloL 2021-04 No 10mg 10 mg, Unive rs (NORMODYNE) 0-15 10-15 Slow IV ity of injection 00:45: 00:05 Push, [place] 10 mg 00 :00 ONCE, 1 Medical dose, On Branch 01/26/22 at 1945, Routine morpHINE (4 2021-04 No 4mg 4 mg, Slow Univers mg/mL) 0-15 10-15 IV Push, ity of injection 4 00:00: 00:05 [place]CE[place] 1 [place] mg [place] :00 dose, On Medical Fri Branch 01/26/22 at 1900, STAT ketorolac 2021-04 No 30mg 30 mg, Unive rs (TORADOL) 0-14 10-14 Slow IV ity of injection 23:00: 21:56 [place], [place] 30 mg 00 :00 ONCE, 1 Medical dose, On Branch 01/26/22 at 1800, Routine ondansetron 2021-04 No 4mg 4 mg, Slow Univers (ZOFRAN 0-14 10-14 IV Push, ity of (PF)) 22:00: 21:56 ONCE, 1 [place] injection 4 00 :00 dose, On Medi brandy mg Fri Branch 01/26/22 at 1700, [place] morpHINE (4 2021-04 No 4mg 4 mg, Slow Univers mg/mL) 0-14 10-14 IV Push, ity of injection 4 22:00: 21:56 [place]CE, 1 [place] mg [place] :00 dose, On Medical Fri Branch 01/26/22 at 1700, STAT iopamidol 2021-04 No [id number] 75mL 75 mL, U nivers (ISOVUE 0-14 -14 Intravenou ity o f 370-500 mL) 21:30: 21:45 s, ONCE, 1 [place] injection 00 :00 dose, On Medica l 75 mL Fri Branch 01/26/22 at 1645, Routine carvediloL 2021-04 Yes 1 tablet Uni vers 12.5 mg 0-14 with food ity of tablet 19:45: [address] Branch gabapentin 2021-04 Yes 1{capsu Take 1 Un you 300 mg 0-14 le} capsule by ity of capsule 19:45: mouth in [place] [address] the Medical morning Branch and 1 capsule at noon and 1 capsule in the evening. tiZANidine 2021-04 Yes 1 tablet Uni vers 2 mg tablet 0-14 as needed ity of 19:45: [place] [address] Medical Branch Tramadol 2021-04- Yes [id number] 100mg Take 1 Unive rs 100 mg 0-14 02-03 tablet by ity of tablet 00:00: 04:59 mouth [place] 00 :00 every 24 Medical ( Branch ur) hours as needed for Pain (scale 4-6) or Pain (scale 7-10) for up to 7 days. Indication s: acute pain ondansetron No 4mg 4 mg, Slow Univers (ZOFRAN 11-02 IV Push, ity of (PF)) 12:30: 12:28 ONCE, 1 [place] injection 4 00 :00 dose, On Medi brandy mg Lilian Branch 11/02/21 at 0730, [place] morpHINE (4 No 4mg 4 mg, Slow Univers mg/mL) 11-02 IV Push, ity of injection 4 12:30: 12:30 [place]CE, 1 [place] mg [place] :00 dose, On Medical Lilian Branch 11/02/21 at 0730, STAT iopamidol 2021- No [id number] 50mL 50 mL, U nivers (ISOVUE 11-02 Intravenou ity o f 370-500 mL) 12:16: 12:16 s, ONCE, 1 [place] injection 00 :00 dose, On Medica l 50 mL [facility] Branch 11/02/21 at 0730, Routine ondansetron 0 2021- No 4mg 4 mg, Slow Univers (ZOFRAN 11-02 IV Push, ity of (PF)) 11:00: 10:41 ONCE, 1 [place] injection 4 00 :00 dose, On Medi brandy mg [facility] Branch 11/02/21 at 0600, [place] FENTanyl PF No 75ug 75 mcg, Un you (SUBLIMAZE 11-02 Slow IV ity o f (PF)) 11:00: 10:42 Push, [place] injection 00 :00 ONCE, 1 Medical 75 mcg dose, On Branch [facility] 11/02/21 at 0600, STAT ondansetron 2021-0 Yes [id number] 4mg Take 1 Univers 4 mg 7-21 tablet by ity of disintegrat 00:00: mouth [place] ing tablet 00 every 8 Medica l (eight) Branch hours as needed for Nausea and Vomiting (N/V). ondansetron 2021-0 Yes [id number] 4mg Take 1 Univers 4 mg 7-21 tablet by ity of disintegrat 00:00: mouth [place] ing tablet 00 every 8 Medica l (eight) Branch hours as needed for Nausea and Vomiting (N/V). ondansetron 2021-0 Yes [id number] 4mg Take 1 Univers 4 mg 7-21 tablet by ity of disintegrat 00:00: mouth [place] ing tablet 00 every 8 Medica l (eight) Branch hours as needed for Nausea and Vomiting (N/V). ARIPiprazol 2021-0 Yes 10mg Take 10 mg Univers e 10 mg 6-18 by mouth ity of tablet 22:55: daily. [address] busPIRone 2021-0 Yes 15mg Take 15 mg Un you 15 mg 6-18 by mouth ity of tablet 22:55: as needed. [address] omeprazole 2021-0 Yes 20mg Take 20 mg U nivers 20 mg 6-18 by mouth ity of tablet 22:55: daily. [address] ARIPiprazol 2021-0 Yes 10mg Take 10 mg Univers e 10 mg 6-18 by mouth ity of tablet 22:55: daily. [address] busPIRone 2021-0 Yes 15mg Take 15 mg Un you 15 mg 6-18 by mouth ity of tablet 22:55: as needed. [address] omeprazole 2021-0 Yes 20mg Take 20 mg U nivers 20 mg 6-18 by mouth ity of tablet 22:55: daily. [address] ARIPiprazol 2021-0 Yes 10mg Take 10 mg Univers e 10 mg 6-18 by mouth ity of tablet 22:55: daily. [address] busPIRone 2021-0 Yes 15mg Take 15 mg Un you 15 mg 6-18 by mouth ity of tablet 22:55: as needed. [address] omeprazole 2021-0 Yes 20mg Take 20 mg U nivers 20 mg 6-18 by mouth ity of tablet 22:55: daily. [address] ARIPiprazol 2021-0 Yes 10mg Take 10 mg Univers e 10 mg 6-18 by mouth ity of tablet 22:55: daily. [address] busPIRone 2021-0 Yes 15mg Take 15 mg Un you 15 mg 6-18 by mouth ity of tablet 22:55: as needed. [address] omeprazole 2021-0 Yes 20mg Take 20 mg U nivers 20 mg 6-18 by mouth ity of tablet 22:55: daily. [address] ARIPiprazol 2021-0 Yes 10mg Take 10 mg Univers e 10 mg 6-18 by mouth ity of tablet 22:55: daily. [address] busPIRone Yes 15mg Take 15 mg Un you 15 mg 6-18 by mouth ity of tablet 22:55: as needed. [address] omeprazole Yes 20mg Take 20 mg U nivers 20 mg 6-18 by mouth ity of tablet 22:55: daily. [address] HYDROmorphO Yes .2mg 0.2 mg, Uni vers ne 09-29 Slow IV ity of (DILAUDID) 14:57: Push, [...] Sat [place] irrigation 00 :43 09/29/21 at [facility] ical solution 0821, Branch Until Sat09/29/21 at [...] [place] (SENSORCAIN 00 :43 09/29/21 at Ut dical E MPF) 0.5 0806, Branch % [...] by ity of tablet 11:00: mouth at [place] 16 bedtime. Medical Branch losartan Yes 100mg Take 100 Univ ers 100 mg 6-17 mg by ity of tablet 11:00: mouth [place] 16 daily. Medical Branch gabapentin Yes 300mg Take 300 Un you 300 mg 6-17 mg by ity of capsule 11:00: mouth 2 [place] 16 (two) Medical times Branch daily. QUEtiapine Yes 400mg Take 400 Un you (SEROQUEL) 6-17 mg by ity of 400 mg 11:00: mouth [place] tablet 16 daily. Medical Patient Branch doesn't like to take it ARIPiprazol 2021-0 Yes 10mg Take 10 mg Univers e 10 mg 6-17 by mouth ity of tablet 11:00: daily. [place] [address] Medical Branch busPIRone 2021-0 Yes 15mg Take 15 mg Un you 15 mg 6-17 by mouth ity of tablet 11:00: as needed. [place] [address] Medical Branch omeprazole 2021-0 Yes 20mg Take 20 mg U nivers 20 mg 6-17 by mouth ity of tablet 11:00: daily. [place] [address] Medical Branch traZODone 2021-0 Yes 100mg Take 100 Uni vers 100 mg 6-17 mg by ity of tablet 11:00: mouth at [place] [address] bedtime. Medical Branch losartan 2021-0 Yes 100mg Take 100 Univ ers 100 mg 6-17 mg by ity of tablet 11:00: mouth [place] 16 daily. Medical Branch gabapentin 2021-0 Yes 300mg Take 300 Un you 300 mg 6-17 mg by ity of capsule 11:00: mouth 2 [place] [address] (two) Medical times Branch daily. QUEtiapine 2021-0 Yes 400mg Take 400 Un you (SEROQUEL) 6-17 mg by ity of 400 mg 11:00: mouth [place] tablet 16 daily. Medical Patient Branch doesn't like to take it ARIPiprazol 2021-0 Yes 10mg Take 10 mg Univers e 10 mg 6-17 by mouth ity of tablet 11:00: daily. [place] [address] Medical Branch busPIRone 2021-0 Yes 15mg Take 15 mg Un you 15 mg 6-17 by mouth ity of tablet 11:00: as needed. [place] [address] Medical Branch omeprazole 2021-0 Yes 20mg Take 20 mg U nivers 20 mg 6-17 by mouth ity of tablet 11:00: daily. [place] [address] Medical Branch traZODone 2021-0 Yes 100mg Take 100 Uni vers 100 mg 6-17 mg by ity of tablet 11:00: mouth at [place] [address] bedtime. Medical Branch losartan 2021-0 Yes 100mg Take 100 Univ ers 100 mg 6-17 mg by ity of tablet 11:00: mouth [place] 16 daily. Medical Branch gabapentin 2021-0 Yes 300mg Take 300 Un you 300 mg 6-17 mg by ity of capsule 11:00: mouth 2 [place] [address] (two) Medical times Branch daily. QUEtiapine 2021-0 Yes 400mg Take 400 Un you (SEROQUEL) 6-17 mg by ity of 400 mg 11:00: mouth [place] tablet 16 daily. Medical Patient Branch doesn't like to take it ARIPiprazol 2021-0 Yes 10mg Take 10 mg Univers e 10 mg 6-17 by mouth ity of tablet 11:00: daily. [place] [address] Medical Branch busPIRone 2021-0 Yes 15mg Take 15 mg Un you 15 mg 6-17 by mouth ity of tablet 11:00: as needed. [place] [address] Medical Branch omeprazole 2021-0 Yes 20mg Take 20 mg U nivers 20 mg 6-17 by mouth ity of tablet 11:00: daily. [place] [address] Medical Branch traZODone 2021-0 Yes 100mg Take 100 Uni vers 100 mg 6-17 mg by ity of tablet 11:00: mouth at [place] [address] bedtime. Medical Branch losartan 2021-0 Yes 100mg Take 100 Univ ers 100 mg 6-17 mg by ity of tablet 11:00: mouth [place] 16 daily. Medical Branch gabapentin 2021-0 Yes 300mg Take 300 Un you 300 mg 6-17 mg by ity of capsule 11:00: mouth [address] [place] [address] (two) Medical times Branch daily. QUEtiapine 2-0 Yes 400mg Take 400 Un you (SEROQUEL) 6-17 mg by ity of 400 mg 11:00: mouth [place] tablet 16 daily. Medical Patient Branch doesn't like to take it traZODone 2021-0 Yes 100mg Take 100 Uni vers 100 mg 6-17 mg by ity of tablet 11:00: mouth at [place] [address] bedtime. Medical Branch losartan 2021-0 Yes 100mg Take 100 Univ ers 100 mg 6-17 mg by ity of tablet 11:00: mouth [place] 16 daily. Medical Branch gabapentin 2022-0 Yes 300mg Take 300 Un you 300 mg 6-17 mg by ity of capsule 11:00: mouth [address] [place] [address] (two) Medical times Branch daily. QUEtiapine 2022-0 Yes 400mg Take 400 Un you (SEROQUEL) 6-17 mg by ity of 400 mg 11:00: mouth [place] tablet 16 daily. Medical Patient Branch doesn't like to take it traZODone 2021-0 Yes 100mg Take 100 Uni vers 100 mg 6-17 mg by ity of tablet 11:00: mouth at [place] 16 bedtime. Medical Branch losartan 2021-0 Yes 100mg Take 100 Univ ers 100 mg 6-17 mg by ity of tablet 11:00: mouth [place] 16 daily. Medical Branch gabapentin 2021-0 Yes 300mg Take 300 Un you 300 mg 6-17 mg by ity of capsule 11:00: mouth 2 [place] 16 (two) Medical times Branch daily. QUEtiapine 2021-0 Yes 400mg Take 400 Un you (SEROQUEL) 6-17 mg by ity of 400 mg 11:00: mouth [place] tablet 16 daily. Medical Patient Branch doesn't like to take it traZODone 2021-0 Yes 100mg Take 100 Uni vers 100 mg 6-17 mg by ity of tablet 11:00: mouth at [place] 16 bedtime. Medical Branch losartan 2021-0 Yes 100mg Take 100 Univ ers 100 mg 6-17 mg by ity of tablet 11:00: mouth [place] 16 daily. Medical Branch gabapentin 2021-0 Yes 300mg Take 300 Un you 300 mg 6-17 mg by ity of capsule 11:00: mouth 2 [place] 16 (two) Medical times Branch daily. QUEtiapine 2021-0 Yes 400mg Take 400 Un you (SEROQUEL) 6-17 mg by ity of 400 mg 11:00: mouth [place] tablet 16 daily. Medical Patient Branch doesn't like to take it traZODone 2021-0 Yes 100mg Take 100 Uni vers 100 mg 6-17 mg by ity of tablet 11:00: mouth at [place] 16 bedtime. Medical Branch losartan 2021-0 Yes 100mg Take 100 Univ ers 100 mg 6-17 mg by ity of tablet 11:00: mouth [place] 16 daily. Medical Branch gabapentin 2021-0 Yes 300mg Take 300 Un you 300 mg 6-17 mg by ity of capsule 11:00: mouth 2 [place] 16 (two) Medical times Branch daily. QUEtiapine 2021-0 Yes 400mg Take 400 Un you (SEROQUEL) 6-17 mg by ity of 400 mg 11:00: mouth [place] tablet 16 daily. Medical Patient Branch doesn't like to take it aspirin 325 2021- No [id number] 325mg Take 1 Univers mg tablet 09-29 4106 tablet by ity of 00:00: 04:59 mouth 2 [place] 00 :00 (two) [facility] times [place] daily with meals for 28 days. aspirin 325 2021- No [id number] 325mg Take 1 Univers mg tablet 09-29- 4106 tablet by ity of 00:00: 04:59 mouth 2 [place] 00 :00 (two) [facility] daily with meals for 28 days. aspirin 325 2021- No [id number] 325mg Take 1 Univers mg tablet 09-29 4106 tablet by ity of 00:00: 04:59 mouth 2 [place] 00 :00 ([facility]) [facility] daily with meals for 28 days. aspirin 325 2021- No [id number] 325mg Take 1 Univers mg tablet 09-29 4106 tablet by ity of 00:00: 04:59 mouth 2 [place] 00 :00 ([facility]) [facility] daily with meals for 28 days. ARIPiprazol 0 Yes 10mg Take 10 mg Univers e 10 mg 6-09 by mouth ity of tablet 15:58: daily. [address] busPIRone 0 Yes 15mg Take 15 mg Un you 15 mg 6-09 by mouth ity of tablet 15:58: as needed. [address] omeprazole 0 Yes 20mg Take 20 mg U nivers 20 mg 6-09 by mouth ity of tablet 15:58: daily. [address] ARIPiprazol 0 Yes 10mg Take 10 mg Univers e 10 mg 6-09 by mouth ity of tablet 15:58: daily. [address] busPIRone 0 Yes 15mg Take 15 mg Un you 15 mg 6-09 by mouth ity of tablet 15:58: as needed. [address] omeprazole 0 Yes 20mg Take 20 mg U nivers 20 mg 6-09 by mouth ity of tablet 15:58: daily. [address] ARIPiprazol 0 Yes 10mg Take 10 mg Univers e 10 mg 6-09 by mouth ity of tablet 15:58: daily. [place] 03 Medical Branch busPIRone 2021-0 Yes 15mg Take 15 mg Un you 15 mg 6-09 by mouth ity of tablet 15:58: as needed. [place] Medical Branch omeprazole 2021-0 Yes 20mg Take 20 mg U nivers 20 mg 6-09 by mouth ity of tablet 15:58: daily. [place] [address] Medical Branch traZODone 2022-0 Yes 100mg Take [...] by ity of capsule 17:57: mouth 2 [place] 28 (two) Medical times Branch daily. QUEtiapine [...] 02:00: First dose [place] 00 on [facility] Medical 09/07/21 at Branch 2100, Until Discontinu ed, Routine lactated 2021-0 2021- No 500mL at 999 Unive rs ringers IV 5-27 05-27 mL/hr, 500 it y of infusion 01:30: 01:17 mL, [place] 500 mL 00 :00 Intravenou Medical s, ONCE, 1 Branch dose, On [place] 09/07/21 at 2030, Routine lipase-prot 2021-0 Yes [id number] 1{capsu Take 1 Univers ease-amylas 5-27 le} capsule by it y of e 00:00: mouth 3 [place] 12,000-38,0 00 (three) Medic al 00 -60,000 times Branch unit daily with capsule meals. psyllium 2021-0 Yes [id number] 1{packe Take 1 Univers husk 3.4 5-27 t} Packet by ity of gram oral 00:00: mouth 2 [place] powder 00 (two) Medical packet times Branch daily. sucralfate 0 Yes [id number] 1g Take 1 U nivers 1 gram 5-27 tablet by ity of tablet 00:00: mouth [place] 00 before Medical meals and Branch at bedtime. ursodioL 0 Yes [id number] 500mg Take 1 Un you 500 mg 5-27 tablet by ity of tablet 00:00: mouth 2 [place] 00 (two) Medical times Branch daily. dicyclomine 0 Yes [id number] 10mg Take 1 Univers 10 mg 5-27 capsule by ity of capsule 00:00: mouth 3 [place] 00 (three) Medical times Branch daily. proMETHazin 2021-0 Yes [id number] 12.5mg Take 0.5 Univers e 25 mg [...] scal 7-10). Indication s: chronic pain pantoprazol 2021-0 Yes [id number] 40mg Take 1 Univers e 40 mg EC 5-27 tablet by ity of tablet 00:00: mouth [place] 00 daily. Medical Branch lipase-prot Yes [id number] 1{capsu Take 1 Univers ease-amylas 5-27 le} capsule by it y of e 00:00: mouth 3 [place] 12,000-38,0 00 (three) Medic al 00 -60,000 times Branch unit daily with capsule meals. psyllium Yes [id number] 1{packe Take 1 Univers husk 3.4 5-27 t} Packet by ity of gram oral 00:00: mouth 2 [place] powder 00 (two) Medical packet times Branch daily. sucralfate Yes [id number] 1g Take 1 U nivers 1 gram 5-27 tablet by ity of tablet 00:00: mouth [place] 00 before Medical meals and Branch at bedtime. ursodioL Yes [id number] 500mg Take 1 Un you 500 mg 5-27 tablet by ity of tablet 00:00: mouth 2 [place] 00 (two) Medical times Branch daily. dicyclomine Yes [id number] 10mg Take 1 Univers 10 mg 5-27 capsule by ity of capsule 00:00: mouth 3 [place] 00 (three) Medical times Branch daily. proMETHazin Yes [id number] 12.5mg Take 0.5 Univers e 25 mg [...] 7-10). Indication s: chronic pain pantoprazol Yes [id number] 40mg Take 1 Univers e 40 mg EC 5-27 tablet by ity of tablet 00:00: mouth [place] 00 daily. Medical Branch lipase-prot Yes [id number] 1{capsu Take 1 Univers ease-amylas 5-27 le} capsule by it y of e 00:00: mouth 3 [place] 12,000-38,0 00 (three) Medic al 00 -60,000 times Branch unit daily with capsule meals. psyllium Yes [id number] 1{packe Take 1 Univers husk 3.4 5-27 t} Packet by ity of gram oral 00:00: mouth 2 [place] powder 00 (two) Medical packet times Branch daily. ursodioL Yes [id number] 500mg Take 1 Un you 500 mg 5-27 tablet by ity of tablet 00:00: mouth 2 [place] 00 (two) Medical times Branch daily. dicyclomine 0 Yes [id number] 10mg Take 1 Univers 10 mg 5-27 capsule by ity of capsule 00:00: mouth 3 [place] 00 (three) Medical times Branch daily. proMETHazin Yes [id number] 12.5mg Take 0.5 Univers e 25 mg [...] 7-10). Indication s: chronic pain lipase-prot Yes [id number] 1{capsu Take 1 Univers ease-amylas 5-27 le} capsule by it y of e 00:00: mouth 3 [place] 12,000-38,0 00 (three) Medic al 00 -60,000 times Branch unit daily with capsule meals. psyllium Yes [id number] 1{packe Take 1 Univers husk 3.4 5-27 t} Packet by ity of gram oral 00:00: mouth 2 [place] powder 00 (two) Medical packet times Branch daily. ursodioL 0 Yes [id number] 500mg Take 1 Un you 500 mg 5-27 tablet by ity of tablet 00:00: mouth 2 [place] 00 (two) Medical times Branch daily. dicyclomine 0 Yes [id number] 10mg Take 1 Univers 10 mg 5-27 capsule by ity of capsule 00:00: mouth 3 [place] 00 (three) Medical times Branch daily. proMETHazin 0 Yes [id number] 12.5mg Take 0.5 Univers e 25 mg [...] Indication s: chronic pain lipase-prot 2021-0 Yes [id number] 1{capsu Take 1 Univers ease-amylas 5-27 le} capsule by it y of e 00:00: mouth 3 [place] 12,000-38,0 00 (three) Medic al 00 -60,000 times Branch unit daily with capsule meals. psyllium 2021-0 Yes [id number] 1{packe Take 1 Univers husk 3.4 5-27 t} Packet by ity of gram oral 00:00: mouth 2 [place] powder 00 (two) Medical packet times Branch daily. ursodioL 0 Yes [id number] 500mg Take 1 Un you 500 mg 5-27 tablet by ity of tablet 00:00: mouth 2 [place] 00 (two) Medical times Branch daily. dicyclomine 2021-0 Yes [id number] 10mg Take 1 Univers 10 mg 5-27 capsule by ity of capsule 00:00: mouth 3 [place] 00 (three) Medical times Branch daily. proMETHazin 2021-0 Yes [id number] 12.5mg Take 0.5 Univers e 25 mg [...] Indication s: chronic pain lipase-prot 2021-0 Yes [id number] 1{capsu Take 1 Univers ease-amylas 5-27 le} capsule by it y of e 00:00: mouth 3 [place] 12,000-38,0 00 (three) Medic al 00 -60,000 times Branch unit daily with capsule meals. psyllium 2021-0 Yes [id number] 1{packe Take 1 Univers husk 3.4 5-27 t} Packet by ity of gram oral 00:00: mouth 2 [place] powder 00 (two) Medical packet times Branch daily. ursodioL 2021-0 Yes [id number] 500mg Take 1 Un you 500 mg 5-27 tablet by ity of tablet 00:00: mouth 2 [place] 00 (two) Medical times Branch daily. dicyclomine 2021-0 Yes [id number] 10mg Take 1 Univers 10 mg 5-27 capsule by ity of capsule 00:00: mouth 3 [place] 00 (three) Medical times Branch daily. proMETHazin 2021-0 Yes [id number] 12.5mg Take 0.5 Univers e 25 mg [...] Indication s: chronic pain lipase-prot 2021-0 Yes [id number] 1{capsu Take 1 Univers ease-amylas 5-27 le} capsule by it y of e 00:00: mouth 3 [place] 12,000-38,0 00 (three) Medic al 00 -60,000 times Branch unit daily with capsule meals. psyllium 2021-0 Yes [id number] 1{packe Take 1 Univers husk 3.4 5-27 t} Packet by ity of gram oral 00:00: mouth 2 [place] powder 00 (two) Medical packet times Branch daily. ursodioL 2021-0 Yes [id number] 500mg Take 1 Un you 500 mg 5-27 tablet by ity of tablet 00:00: mouth 2 [place] 00 (two) Medical times Branch daily. dicyclomine 2021-0 Yes [id number] 10mg Take 1 Univers 10 mg 5-27 capsule by ity of capsule 00:00: mouth 3 [place] 00 (three) Medical times Branch daily. proMETHazin 2022-0 Yes [id number] 12.5mg Take 0.5 Univers e 25 mg [...] Indication s: chronic pain lipase-prot 2021- Yes [id number] 1{capsu Take 1 Univers ease-amylas 5-27 le} capsule by it y of e 00:00: mouth 3 [place] 12,000-38,0 00 (three) Medic al 00 -60,000 times Branch unit daily with capsule meals. psyllium Yes [id number] 1{packe Take 1 Univers husk 3.4 5-27 t} Packet by ity of gram oral 00:00: mouth 2 [place] powder 00 (two) Medical packet times Branch daily. ursodioL Yes [id number] 500mg Take 1 Un you 500 mg 5-27 tablet by ity of tablet 00:00: mouth 2 [place] 00 (two) Medical times Branch daily. dicyclomine 0 Yes [id number] 10mg Take 1 Univers 10 mg 5-27 capsule by ity of capsule 00:00: mouth 3 [place] 00 (three) Medical times Branch daily. proMETHazin Yes [id number] 12.5mg Take 0.5 Univers e 25 mg [...] Indication s: chronic pain lipase-prot 2021-0 Yes [id number] 1{capsu Take 1 Univers ease-amylas 5-27 le} capsule by it y of e 00:00: mouth 3 [place] 12,000-38,0 00 (three) Medic al 00 -60,000 times Branch unit daily with capsule meals. psyllium 2021-0 Yes [id number] 1{packe Take 1 Univers husk 3.4 5-27 t} Packet by ity of gram oral 00:00: mouth 2 [place] powder 00 (two) Medical packet times Branch daily. ursodioL 2021-0 Yes [id number] 500mg Take 1 Un you 500 mg 5-27 tablet by ity of tablet 00:00: mouth 2 [place] 00 (two) Medical times Branch daily. dicyclomine 2021-0 Yes [id number] 10mg Take 1 Univers 10 mg 5-27 capsule by ity of capsule 00:00: mouth 3 [place] 00 (three) Medical times Branch daily. proMETHazin 2021-0 Yes [id number] 12.5mg Take 0.5 Univers e 25 mg [...] Indication s: chronic pain lipase-prot 2021-0 Yes [id number] 1{capsu Take 1 Univers ease-amylas 5-27 le} capsule by it y of e 00:00: mouth 3 [place] 12,000-38,0 00 (three) Medic al 00 -60,000 times Branch unit daily with capsule meals. psyllium 2021-0 Yes [id number] 1{packe Take 1 Univers husk 3.4 5-27 t} Packet by ity of gram oral 00:00: mouth 2 [place] powder 00 (two) Medical packet times Branch daily. ursodioL 2021-0 Yes [id number] 500mg Take 1 Un you 500 mg 5-27 tablet by ity of tablet 00:00: mouth 2 [place] 00 (two) Medical times Branch daily. dicyclomine 2021-0 Yes [id number] 10mg Take 1 Univers 10 mg 5-27 capsule by ity of capsule 00:00: mouth 3 [place] 00 (three) Medical times Branch daily. proMETHazin Yes [id number] 12.5mg Take 0.5 Univers e 25 mg [...] Indication s: chronic pain lipase-prot 2021- Yes [id number] 1{capsu Take 1 Univers ease-amylas 5-27 le} capsule by it y of e 00:00: mouth 3 [place] 12,000-38,0 00 (three) Medic al 00 -60,000 times Branch unit daily with capsule meals. psyllium Yes [id number] 1{packe Take 1 Univers husk 3.4 5-27 t} Packet by ity of gram oral 00:00: mouth 2 [place] powder 00 (two) Medical packet times Branch daily. ursodioL Yes [id number] 500mg Take 1 Un you 500 mg 5-27 tablet by ity of tablet 00:00: mouth 2 [place] 00 (two) Medical times Branch daily. dicyclomine Yes [id number] 10mg Take 1 Univers 10 mg 5-27 capsule by ity of capsule 00:00: mouth 3 [place] 00 (three) Medical times Branch daily. proMETHazin 2021- Yes [id number] 12.5mg Take 0.5 Univers e 25 mg [...] Indication s: chronic pain lipase-prot 2021-0 Yes [id number] 1{capsu Take 1 Univers ease-amylas 5-27 le} capsule by it y of e 00:00: mouth 3 [place] 12,000-38,0 00 (three) Medic al 00 -60,000 times Branch unit daily with capsule meals. psyllium Yes [id number] 1{packe Take 1 Univers husk 3.4 5-27 t} Packet by ity of gram oral 00:00: mouth 2 [place] powder 00 (two) Medical packet times Branch daily. ursodioL 0 Yes [id number] 500mg Take 1 Un you 500 mg 5-27 tablet by ity of tablet 00:00: mouth 2 [place] 00 (two) Medical times Branch daily. dicyclomine Yes [id number] 10mg Take 1 Univers 10 mg 5-27 capsule by ity of capsule 00:00: mouth 3 [place] 00 (three) Medical times Branch daily. proMETHazin Yes [id number] 12.5mg Take 0.5 Univers e 25 mg [...] Indication s: chronic pain lipase-prot 0 Yes [id number] 1{capsu Take 1 Univers ease-amylas 5-27 le} capsule by it y of e 00:00: mouth 3 [place] 12,000-38,0 00 (three) Medic al 00 -60,000 times Branch unit daily with capsule meals. psyllium Yes [id number] 1{packe Take 1 Univers husk 3.4 5-27 t} Packet by ity of gram oral 00:00: mouth 2 [place] powder 00 (two) Medical packet times Branch daily. ursodioL 2021-0 Yes [id number] 500mg Take 1 Un you 500 mg 5-27 tablet by ity of tablet 00:00: mouth 2 [place] 00 (two) Medical times Branch daily. dicyclomine 2021-0 Yes [id number] 10mg Take 1 Univers 10 mg 5-27 capsule by ity of capsule 00:00: mouth 3 [place] 00 (three) Medical times Branch daily. proMETHazin Yes [id number] 12.5mg Take 0.5 Univers e 25 mg [...] Indication s: chronic pain sucralfate 2021- No [id number] 1g Take 1 Univers 1 gram 5-27 06-09 tablet by ity of tablet 00:00: 00:00 mouth [place] 00 :00 before Medical meals and Branch at bedtime. pantoprazol 2021- No [id number] 40mg Take 1 Univers e 40 mg EC 5-27 06-09 tablet by ity of tablet 00:00: 00:00 mouth [place] 00 :00 daily. Medical Branch sucralfate 2021- No [id number] 1g Take 1 Univers 1 gram 5-27 06-09 tablet by ity of tablet 00:00: 00:00 mouth [place] 00 :00 before Medical meals and Branch at bedtime. pantoprazol 2021- No [id number] 40mg Take 1 Univers e 40 mg EC 5-27 06-09 tablet by ity of tablet 00:00: 00:00 mouth [place] 00 :00 daily. Medical Branch ursodioL 2021- No [id number] 500mg Take 1 U nivers 500 mg 5-27 05-27 tablet by ity of tablet 00:00: 00:00 mouth 2 [place] 00 :00 (two) Medical times Branch daily. psyllium 2021- No [id number] 1{packe Take 1 Univers husk 3.4 5-27 05-27 t} Packet by ity o f gram oral 00:00: 00:00 mouth 2 [place] powder 00 :00 (two) Medical packet times Branch daily. lipase-prot 2021- No [id number] 1{capsu Take 1 Univers ease-amylas 5-27 05-27 le} capsule by i ty of e 00:00: 00:00 mouth 3 [place] 12,000-38,0 00 :00 (three) Medic al 00 -60,000 times Branch unit daily with capsule meals. dicyclomine 2021- No [id number] 10mg Take 1 Univers 10 mg 5-27 05-27 capsule by ity of capsule 00:00: 00:00 mouth 3 [place] 00 :00 (three) Medical times Branch daily. proMETHazin 2021- No [id number] 12.5mg Take 0.5 Univers e 25 mg [...] Indication s: chronic pain sucralfate 2021- No [id number] 1g Take 1 Univers 1 gram 5-27 -27 tablet by ity of tablet 00:00: 00:00 mouth [place] 00 :00 before Medical meals and Branch at bedtime. pantoprazol 2021- No [id number] 40mg Take 1 Univers e 40 mg [...] Yes 7.5mg 7.5 mg, Un you -acetaminop -25 Oral, Q6H, it y of hen (HYCET) 23:30: First dose [place] 7.5-325 00 (after Medical mg/15 mL last Branch solution modificati 7.5 mg on) on Sat09/06/21 at 1830, Until Discontinu ed proMETHazin Yes 12.5mg 12.5 mg, Univers e 5-25 Oral, ity of (PHENERGAN) 18:38: Q6HPRN, [place] tablet 12.5 27 Starting Medi brandy mg on Sat09/06/21 at 1338, Until Discontinu ed, Routine, Nausea and Vomiting (N/V) gadobenate 2021- No [id number] .2mL/kg 15.7 mL Univers dimeglumine 09-06 (0.2 [...] Sat09/05/21 at 0800, Until Discontinu ed HYDROcodone 0 2021- No 10mg 10 mg, Uni vers -acetaminop 09-05 Oral, ity of hen (HYCET) 01:00: 01:11 ONCE, 1 [place] 7.5-325 00 :00 dose, On Medical mg/15 mL Mon Branch solution 10 09/04/21 at mg 1999, Routine alum-mag 0 Yes 30mL 30 mL, Univers hydroxide-s 09-04 Oral, ity of imeth 22:31: Q6HPRN, [place] (MAALOX 21 Starting Medical PLUS / on Mon Branch MAG-AL 09/04/21 at PLUS) 1731, 200-200-20 Until mg/5 mL Discontinu suspension ed, 30 mL Routine, Indigestio n, Heartburn psyllium Yes 1{packe 1 Packet, U nivers husk 09-04 t} Oral, BID, ity of (METAMUCIL 01:00: First dose [place] (SUGAR on [facility] FREE)) 3.4 09/03/21 at [facility] gram oral 1999, powder Until packet 1 Discontinu Packet ed, Routine HYDROcodone 0 2021- No 10mg 10 mg, Uni vers -acetaminop 09-04 Oral, BID, i ty of hen (HYCET) 01:00: 22:54 First dose [place] 7.5-325 00 :32 (after Medical mg/15 mL last Branch solution 10 modificati mg on) on 09/03/21 at 2000, Until Discontinu ed traMADoL 0 2021- No 25mg 25 mg, Univer s (ULTRAM) 09-03 Oral, PRN, ity of tablet 25 19:34: 19:54 1 dose, [place] mg 00 :00 Starting Medical on [facility] 09/03/21 at 1434, Until Discontinu ed, Routine, Pain (scale 7-10) pantoprazol 2022-0 Yes 40mg 40 mg, Univ ers e 09-03 Slow IV ity of (PROTONIX) 17:30: Push, [place] injection 00 Q24H, Medical 40 mg First dose Branch on [place] 09/03/21 at 1230, Until Discontinu ed dicyclomine Yes 10mg 10 mg, Univ ers (BENTYL) 09-03 Oral, ity of capsule 10 16:19: TIDPRN, [place] mg 52 Starting Medical on [facility] 09/03/21 at 1119, Until Discontinu ed, Routine, Abdominal pain acetaminoph Yes 325mg 325 mg, Un you en 09-03 Oral, ity of (TYLENOL) 14:40: Q6HPRN, [place] tablet 325 10 Starting Medic al mg on [facility] 09/03/21 at 0940, Until Discontinu ed, Routine, Pain (scale 1-3), Pain (scale 4-6) FENTanyl PF No 50ug 50 mcg, Un you (SUBLIMAZE 09-0322 Slow IV ity o f (PF)) 14:39: 16:17 Push, [place] injection 39 :20 Q6HPRN, Medical 50 mcg Starting Branch on [place] 09/03/21 at 0939, Until [place] 09/03/21 at 1117, Routine, Pain (scale 7-10) polyethylen Yes 17g 17 g, Unive rs e glycol 09-02 Oral, ity of 3350 powder 14:00: DAILY, [place] 17 g 00 First dose Medical on [facility] 09/02/21 at 0900, Until Discontinu ed, Routine fenofibrate Yes 134mg 134 mg, Un you micronized 09-02 Oral, ity of (LOFIBRA) 14:00: DAILY, [place] capsule 134 00 First dose Me dical mg on [facility] 09/02/21 at 0900, Until Discontinu ed losartan Yes 100mg 100 mg, Unive rs (COZAAR) 09-02 Oral, ity of tablet 100 14:00: DAILY, [place] mg 00 First dose Medical on [facility] 09/02/21 at 0900, Until Discontinu ed, Routine heparin 0 Yes 5000U 5,000 Univers (porcine) 09-02 Units, ity of injection 13:00: Subcutaneo [place] 5,000 Units 00 us, Q12H, Med ical First dose Branch on [facility] 09/02/21 at 0800, Until Discontinu ed, Routine sennosides Yes 8.6mg 8.6 mg, Uni vers (SENOKOT) 09-02 Oral, BID, ity of tablet 8.6 13:00: First dose [place] mg 00 on [facility] 09/02/21 at Branch 0800, Until Discontinu ed, Routine lipase-prot 0 Yes 1{capsu 1 capsule, Univers ease-amylas 09-02 le} Oral, TID ity of e (CREON) 13:00: MEALS, [place] 12,000-38,0 00 First dose Me dical 00 -60,000 on [facility] Branch unit 09/02/21 at capsule 1 0800, capsule Until Discontinu ed, Routine ursodioL Yes 500mg 500 mg, Unive rs (EUGENE) 09-02 Oral, BID, ity of tablet 500 13:00: First dose [place] mg 00 on [facility] 09/02/21 at Branch 0800, Until Discontinu ed, Routine gabapentin Yes 300mg 300 mg, Uni vers (NEURONTIN) 09-02 Oral, BID, it y of capsule 300 13:00: First dose [place] mg 00 on [facility] 09/02/21 at Branch 0800, Until Discontinu ed, Routine HYDROcodone 2021- No 7.5mg 7.5 mg, U nivers -acetaminop 09-02 Oral, BID, i ty of hen (HYCET) 13:00: 16:17 First dose [place] 7.5-325 00 :46 on [facility] Medical mg/15 mL 09/02/21 at [facility] h solution 0800, 7.5 mg Until Discontinu ed FENTanyl PF 2021- No 25ug 25 mcg, Un you (SUBLIMAZE 09-02 Slow IV ity o f (PF)) 12:56: 12:17 Push, [place] injection 31 :41 Q6HPRN, Medical 25 mcg Starting Branch on [facility] 09/02/21 at 0756, Until 09/03/21 at 0717, Routine, Pain (scale 7-10) traMADoL 2021- No 50mg 50 mg, Univer s (ULTRAM) 09-02 Oral, ity of tablet 50 12:55: 12:17 Q8HPRN, [place] mg 47 :33 Starting Medical on Sat Branch 09/02/21 at 0755, Until 09/03/21 at [...] dose [place] mg 00 on Sat [facility] 09/01/21 at Branch 2230, Until Discontinu ed, Routine NaCl 0.9% 2021- No 1000mL at 500 Uni vers (NS) bolus 09-02 mL/hr, ity of infusion 03:30: 05:52 1,000 mL, [place] 1,000 mL 00 :00 IV Medical Infusion, [place] ONCE, 1 dose, On Sat09/01/21 at 2230, [place] bisacodyL Yes 10mg 10 mg, Univer s (DULCOLAX) 09-02 Rectal, ity of suppository 03:21: BIDPRN, [place] 10 mg 19 Starting Medical on Sat [place] 09/01/21 at 2221, Until Discontinu ed, Routine, Constipati on, Constipati on unresolved by oral medication s tiZANidine Yes 4mg 4 mg, Univer s (ZANAFLEX) 09-02 Oral, ity of tablet 4 mg 03:20: Q6HPRN, [place] 43 Starting Medical on Sat [place] 09/01/21 at 2220, Until Discontinu ed, Routine, Muscle Spasms morpHINE (2 2021- No 4mg 4 mg, Slow Univers mg/mL) 09-02 IV Push, ity of injection 4 03:19: 12:56 Q6HPRN, [place] mg 17 :55 Starting Medical on Fri Branch 09/01/21 at 2219, Until 09/02/21 at [...] No 25ug 25 mcg, Un you (SUBLIMAZE - 05-20 Slow IV ity o f (PF)) [...] brandy 1:1:1 [place] (FIRST-[facility]OUT 08/27/21 at [facility]) 1500, oral Routine suspension 15 mL FENTanyl PF 2021- No 50ug 50 mcg, Un you (SUBLIMAZE 08-27-15 Slow IV ity o f (PF)) 17:49: 17:52 Push, [place] injection 00 :00 ONCE, 1 Medical 50 mcg dose, On Branch 08/27/21 at 1300, STAT morpHINE (4 2021- No 4mg 4 mg, Slow Univers mg/mL) 08-27-15 IV Push, ity of injection 4 17:15: 16:22 ONCE, 1 [place] mg 00 :00 dose, On Medical [place] Branch 08/27/21 at 1215, STAT ondansetron 2021- [...] Medical Infusion, Branch ONCE, 1 dose, On [place] 08/27/21 at 1215, [place] iopamidol 2021- No [id number] 100mL 100 mL, Univers (ISOVUE 08-2715 Intravenou ity o f 370-500 mL) 16:45: 16:44 s, ONCE, 1 [place] injection 00 :00 dose, On Medica l 100 mL [place] [facility] 08/27/21 at 1145, Routine traZODone Yes 100mg Take 100 Uni vers 100 mg 4-16 mg by ity of tablet 14:03: mouth at [place] 58 bedtime. Medical Branch losartan Yes 100mg Take 100 Univ ers 100 mg 4-16 mg by ity of tablet 14:03: mouth [place] 58 daily. Medical Branch gabapentin Yes 300mg Take [...] mouth [place] 58 daily. Medical Branch gabapentin 2-0 Yes 300mg [...] times Branch tablet daily. For anxiety traZODone 202-0 Yes 100mg Take 100 Uni vers 100 mg 4-16 mg by ity of tablet 14:03: mouth at [place] 58 bedtime. Medical Branch losartan 202-0 Yes 100mg Take 100 Univ ers 100 mg 4-16 mg by ity of tablet 14:03: mouth [place] 58 daily. Medical Branch gabapentin 202-0 Yes 300mg Take 300 Un you 300 mg 4-16 mg by ity of capsule 14:03: mouth 2 [place] 58 (two) Medical times Branch daily. proMETHazin 202-0 Yes 25mg Take 25 mg Univers e 25 mg 4-16 by mouth ity of tablet 14:03: every 12 [place] 58 (twelve) Medical hours as Branch needed. busPIRone 202-0 Yes 15mg Take 15 mg Un you [...] at 0900, Until Discontinu ed, Routine proMETHazin 202-0 Yes [id number] 25mg Take 1 Univers e 25 mg 4-16 tablet by ity of tablet 00:00: mouth [place] 00 every 4 Medical (four) Branch hours as needed for Nausea and Vomiting (N/V). proMETHazin 2022-0 Yes [id number] 25mg Take 1 Univers e 25 mg 4-16 tablet by ity of tablet 00:00: mouth [place] 00 every 4 Medical (four) Branch hours as needed for Nausea and Vomiting (N/V). proMETHazin Yes [id number] 25mg Take 1 Univers e 25 mg 4-16 tablet by ity of tablet 00:00: mouth [place] 00 every 4 Medical (four) Branch hours as needed for Nausea and Vomiting (N/V). proMETHazin 2021- No [id number] 25mg Take 1 Univers e 25 mg 4-16 05-27 tablet by ity of tablet 00:00: 00:00 mouth [place] 00 :00 every 4 Medical (four) Branch hours as needed for Nausea and Vomiting (N/V). docusate 2021- No [id number] 100mg Take 1 Univers 100 mg 4-16 05-17 capsule by ity of capsule 00:00: 04:59 mouth [place] 00 :00 daily for Medical 30 days. Branch hydrALAZINE 2021- No [id number] 50mg Take 1 Univers 50 mg 4-16 05-17 tablet by ity of tablet 00:00: 04:59 mouth 2 [place] 00 :00 (two) Medical times Branch daily for 30 days. docusate 2021- No [id number] 100mg Take 1 Univers 100 mg 4-16 05-17 capsule by ity of capsule 00:00: 04:59 mouth [place] 00 :00 daily for Medical 30 days. Branch hydrALAZINE 2021- No [id number] 50mg Take 1 Univers 50 mg 4-16 05-17 tablet by ity of tablet 00:00: 04:59 mouth 2 [place] 00 :00 (two) Medical times Branch daily for 30 days. docusate 2021- No [id number] 100mg Take 1 [facility] 100 mg 4-16 05-17 capsule by ity of capsule 00:00: 04:59 mouth [place] 00 :00 daily for Medical 30 days. Branch hydrALAZINE 2021- No [id number] 50mg Take 1 Univers 50 mg 4-16 [...] No 30mL 30 mL, Unive rs (CEPHULAC) 07-28- Oral, ity of solution 30 15:30: 15:07 [...] First dose [place] mg 00 :11 on Sat Medical 07/26/21 at Branch 1999, Until Discontinu [...] Yes 400mg 400 mg, Uni vers (SEROQUEL) 13 Oral, QHS, ity of tablet 400 02:00: First dose [place] mg 00 on [facility] Medical 07/25/21 at Branch 2100, Until Discontinu ed, Routine divalproex Yes 500mg 500 mg, Uni vers (DEPAKOTE) 07-26 Oral, ity of EC tablet 01:00: Q12H, [place] 500 mg 00 First dose Medical on Sat [place] 07/25/21 at 2000, Until Discontinu ed LORazepam [...] 16:30: First dose [place] mg 00 on [facility] 07/25/21 at Branch 1130, Until Discontinu ed, Routine sennosides- 2021- No 1{tbl} 1 tablet, [facility] docusate 07-25 Oral, ity of sodium 16:30: 21:16 DAILY, [place] (SENOKOT-S) 00 :00 First dose Me dical 8.6-50 mg on Sat [place] per tablet 07/25/21 at 1 tablet 1130, Until Discontinu ed, Routine hydralAZINE No 10mg 10 mg, Uni vers (APRESOLINE 07-25 Slow IV ity of ) injection 16:23: 21:32 Push, [place] 10 mg 02 :00 Q4HPRN, Medical Starting Branch on Sat07/25/21 at 1123, Until Sat07/26/21 at 1632, STAT, DBP=&g t;100; SBP=>160<b r>Indicati on: Hypertensi ve Emergency traZODone Yes 100mg 100 mg, Univ ers (DESYREL) 07-25 Oral, QHS, ity of tablet 100 02:00: First dose [place] mg 00 on [facility] 07/24/21 at Branch 2100, Until Discontinu ed, Routine morpHINE No 4mg 4 mg, Slow Un you injection 07-25 IV Push, ity of mg 02:00: 17:59 Q3HPRN, [place] 00 :47 Starting Medical on [facility] Branch 07/24/21 at 2100, Until Sat07/25/21 at 1259, Routine, Pain (scale 7-10) proMETHazin Yes 12.5mg 12.5 mg, Univers e 07-24 IV ity of (PHENERGAN) 23:52: Piggyback, [place] 12.5 mg in 45 Q4HPRN, Medica l NaCl 0.9% Starting Branch (NS) 50 mL on [facility] IV 07/24/21 at piggyback 1852, Until Discontinu ed, Routine, Nausea and Vomiting (N/V) morpHINE No 4mg 4 mg, Slow Un you injection 4 07-24 04-11 IV Push, ity of mg 19:45: 23:44 Q3HPRN, [place] 00 :00 Starting Medical on [facility] 07/24/21 at 1445, Until Sat07/24/21 at 1844, Routine, Pain (scale 7-10) SERTraline 0 Yes 25mg 25 mg, Unive rs (ZOLOFT) 07-24 Oral, ity of tablet 25 14:00: DAILY, [place] mg 00 First dose Medical on [facility] 07/24/21 at 0900, Until Discontinu ed, Routine losartan 0 Yes 100mg 100 mg, Unive rs (COZAAR) 07-24 Oral, ity of tablet 100 14:00: DAILY, [place] mg 00 First dose Medical on [facility] 07/24/21 at 0900, Until Discontinu ed, Routine fenofibrate 0 Yes 134mg 134 mg, Un you micronized 07-24 Oral, ity of (LOFIBRA) 14:00: DAILY, [place] capsule 134 00 First dose Me dical mg on [facility] 07/24/21 at 0900, Until Discontinu ed enoxaparin 0 Yes 30mg 30 mg, Unive rs (LOVENOX) 07-24 Subcutaneo ity of injection 14:00: us, DAILY, [place] 30 mg 00 First dose Medical on [facility] 07/24/21 at 0900, Until Discontinu ed, Routine busPIRone 0 Yes 10mg 10 mg, Univer s (BUSPAR) 07-24 Oral, BID, ity o f tablet 10 13:00: First dose [place] mg 00 on [facility] 07/24/21 at Branch 0800, Until Discontinu ed, Routine gabapentin 0 Yes 300mg 300 mg, Uni vers (NEURONTIN) 07-24 Oral, BID, it y of capsule 300 13:00: First dose [place] mg 00 on [facility] 07/24/21 at Branch 0800, Until Discontinu ed, Routine lactated 2021-0 2022- No 1000mL at 150 Univ ers ringers [...] 4 35 Starting Medi brandy mg on [facility] 07/23/21 at 2326, Until Discontinu ed, [place], Nausea and Vomiting (N/V) FENTanyl PF No 75ug 75 mcg, Un you (SUBLIMAZE 07-24 Slow IV ity o f (PF)) 00:15: 23:11 Push, [place] injection 00 :00 ONCE, 1 Medical 75 mcg dose, On [facility] 07/23/21 at 1915, STAT iopamidol No [id number] 100mL 100 mL, Univers (ISOVUE 07-24 Intravenou ity o f 370-500 mL) 00:00: 00:00 s, ONCE, 1 [place] injection 00 :00 dose, On Medica l 100 mL [facility] 07/23/21 at 1900, Routine morpHINE No 4mg 4 mg, Slow Un you injection 4 07-23 IV Push, ity of mg 23:57: 19:32 Q4HPRN, [place] 08 :42 Starting Medical on [facility] 07/23/21 at 1857, Until Sat07/24/21 at 1432, Routine, Pain (scale 7-10) HYDROcodone 2021- No 1{tbl} 1 tablet, Univers -acetaminop 07-23 Oral, ity of hen (NORCO 23:57: 23:56 Q6HPRN, [place] 5) 5-325 mg 06 :06 Starting Medi brandy tablet 1 on [facility] tablet 07/23/21 at 1857, Until Sat07/25/21 at 1856, Routine, Pain (scale 4-6) acetaminoph Yes 650mg 650 mg, Un you en 10 Oral, ity of (TYLENOL) 23:57: Q6HPRN, [place] tablet 650 04 Starting Medic al mg on [facility] 07/23/21 at 1857, Until Discontinu ed, Routine, Pain (scale 1-3) haloperidol 2021- No 2.5mg 2.5 mg, U nivers lactate 07-23-10 Intravenou ity o f (HALDOL) 23:30: 22:31 s, ONCE, 1 [place] injection 00 :00 dose, On Medica l 2.5 mg [facility] 07/23/21 at 1830, STAT ondansetron 2021- No 4mg 4 mg, Slow Univers (ZOFRAN 07-23 IV Push, ity of (PF)) 22:00: 21:22 ONCE, 1 [place] injection 4 00 :00 dose, On Medi brandy mg [facility] 07/23/21 at 1700, [place] FENTanyl PF 2021- No 75ug 75 mcg, Un you (SUBLIMAZE 07-23 Slow IV ity o f (PF)) 22:00: 21:24 Push, [place] injection 00 :00 ONCE, 1 Medical 75 mcg dose, On [facility] 07/23/21 at 1700, Routine NaCl 0.9% 2021- No 1000mL at 999 Uni vers (NS) bolus 07-23-10 mL/hr, ity of infusion 22:00: 23:41 1,000 mL, [place] 1,000 mL 00 :00 IV Medical Infusion, Branch ONCE, 1 dose, On [place] 07/23/21 at 1700, [place] water for Yes PRN, Univers irrigation 07-04 Starting ity o f irrigation 16:35: on Sat [place] solution 00 07/04/21 at Medic al 1135, Branch Until Discontinu ed, Routine, Intra-op simethicone Yes PRN, Univer s (GAS RELIEF 07-04 Starting ity of (SIMETHICON 16:35: on Sat [place] E)) 40 00 07/04/21 at [...] Intra-op lactated 2021- No 1000mL at 42 [facility] ringers IV 07-04 03-22 mL/hr, ity of infusion 16:15: 16:04 1,000 mL, [place] 1,000 mL 00 :00 IV Medical Infusion, Branch ONCE, 1 dose, On Sat07/04/21 at 1115, Routine, DSU Pre-op lactated 2021- No 1000mL at 42 Unive rs ringers IV 07-04 03-22 mL/hr, ity of infusion 16:15: 16:04 1,000 mL, [place] 1,000 mL 00 :00 IV Medical Infusion, Branch ONCE, 1 dose, On Sat07/04/21 at 1115, Routine, DSU Pre-op traZODone Yes 100mg Take 100 Uni vers 100 mg 3-22 mg by ity of tablet 13:27: mouth at [place] [address] bedtime. Medical Branch losartan Yes 100mg Take 100 Univ ers 100 mg 3-22 mg by ity of tablet 13:27: mouth [place] [address] daily. Medical Branch gabapentin Yes 300mg Take 300 Un you 300 mg 3-22 mg by ity of capsule 13:27: mouth 2 [place] 47 (two) Medical times Branch daily. proMETHazin Yes [...] by ity of tablet 13:27: mouth at [place] 47 bedtime. Medical Branch losartan 2022-0 Yes [...] at [place] 47 bedtime. Medical Branch losartan 0 Yes 100mg [...] (twelve) Medical hours as Branch needed. busPIRone Yes 15mg Take 15 mg Un [...] brandy 1:1:1 Sat Branch ([facility] 06/03/21 at [facility]) 1999, [place] oral suspension 15 mL iopamidol 2021- No [id number] 100mL 100 mL, Univers (ISOVUE 06-04 Intravenou [...] Branch 06/03/21 at 1530, Routine proMETHazin Yes [id number] 25mg Insert 1 Univers e 25 mg 06-03 Suppositor ity of suppository 00:00: y into [place] 00 rectum Medical every 4 Branch (four) hours as needed for Nausea and Vomiting (N/V), N/V unresponsi ve to Ondansetro n or N/V unresponsi ve to oral antiemetic s. proMETHazin Yes [id number] 25mg Insert 1 Univers e 25 mg 2-19 Suppositor ity of suppository 00:00: y into [place] 00 rectum Medical every 4 Branch (four) hours as needed for Nausea and Vomiting (N/V), N/V unresponsi ve to Ondansetro n or N/V unresponsi ve to oral antiemetic s. proMETHazin Yes [id number] 25mg Insert 1 Univers e 25 mg 2-19 Suppositor ity of suppository 00:00: y into [place] 00 rectum Medical every 4 Branch (four) hours as needed for Nausea and Vomiting (N/V), N/V unresponsi ve to Ondansetro n or N/V unresponsi ve to oral antiemetic s. proMETHazin Yes [id number] 25mg Insert 1 Univers e 25 mg 2-19 Suppositor ity [facility] suppository [facility] 4 Branch (four) hours as needed for Nausea and Vomiting (N/V), N/V unresponsi ve to Ondansetro n or N/V unresponsi ve to oral antiemetic s. proMETHazin Yes [id number] 25mg Insert 1 Univers e 25 mg 2-19 Suppositor ity of suppository 00:00: y into [place] [address] rectum Medical every 4 Branch (four) hours as needed for Nausea and Vomiting (N/V), N/V unresponsi ve to Ondansetro n or N/V unresponsi ve to oral antiemetic s. proMETHazin Yes [id number] 25mg Insert 1 Univers e 25 mg 2-19 Suppositor ity of suppository 00:00: [facility] Medical every 4 Branch (four) hours as needed for Nausea and Vomiting (N/V), N/V unresponsi ve to Ondansetro n or N/V unresponsi ve to oral antiemetic s. proMETHazin Yes [id number] 25mg Insert 1 Univers e 25 mg 2-19 Suppositor ity of suppository 00:00: y into [place] 00 rectum Medical every 4 Branch (four) hours as needed for Nausea and Vomiting (N/V), N/V unresponsi ve to Ondansetro n or N/V unresponsi ve to oral antiemetic s. proMETHazin 2021- No [id number] 25mg Insert 1 Univers e 25 mg [...] ity of mg 07:30: 06:35 ONCE, 1 [place] 00 :00 dose, On Medical 05/22/21 Branch at 0130, STAT ondansetron 2021- No 4mg 4 mg, Slow Univers (ZOFRAN 05-22 IV Push, ity of (PF)) 07:30: 06:35 ONCE, 1 [place] injection 4 00 :00 dose, On Medi brandy mg Sat05/22/21 Branch at 0130, [place] iohexol 2021- No [id number] 100mL 100 mL, Univers (OMNIPAQUE 05-22 Intravenou it y of 350 06:15: 06:04 s, ONCE, 1 [place] BULK-100 00 :00 dose, On Medical mL) [facility] 05/22/21 Branch injection at 0015, 100 mL Routine traZODone Yes 100mg Take 100 Uni vers 100 mg 2-06 mg by ity of tablet 23:27: mouth at [place] 53 bedtime. Medical Branch traZODone Yes 100mg Take 100 Uni vers 100 mg 2-06 mg by ity of tablet 23:27: mouth at [place] 53 bedtime. Medical Branch gabapentin Yes 300mg Take 300 Un you 300 mg 2-06 mg by ity of capsule 23:27: mouth 2 [place] 26 (two) Medical times Branch daily. gabapentin Yes 300mg Take 300 Un you [...] 09:16: mouth [place] daily. Medical Branch gabapentin 2021-0 Yes 300mg Take 300 Un you 300 mg 2-03 mg by ity of capsule 09:16: mouth 2 [place] (two) Medical times Branch daily. diazePAM 2 0 Yes 2mg Take 2 mg Un you mg tablet 2-03 by mouth. ity o f 09:16: Medical Branch erythromyci 0 Yes erythromyc Univers n 5 mg/gram 2-03 [...] ity o f 09:16: Medical Branch erythromyci 0 Yes erythromyc Univers n 5 mg/gram 2-03 [...] 01 daily. Medical Branch montelukast 2021- No [id number] 10mg Take 1 Univers (SINGULAIR) 2- 03-06 tablet by it y of 10 mg 00:00: 05:59 mouth [place] tablet 00 :00 daily for Medical 30 days. Branch montelukast 2021- No [id number] 10mg Take 1 Univers (SINGULAIR) 2- 03-06 tablet by it y of 10 mg 00:00: 05:59 mouth [place] tablet 00 :00 daily for Medical 30 days. Branch montelukast 2021- No [id number] 10mg Take 1 Univers (SINGULAIR) 2-03 03-06 tablet by it y of 10 mg 00:00: 05:59 mouth [place] tablet 00 :00 daily for Medical 30 days. Branch benzonatate 2021- No [id number] 200mg Take 2 Univers (TESSALON 2-03 02-14 capsules ity o f PERLES) 100 00:00: 05:59 by mouth [place] mg capsule 00 :00 every 8 Medica l (eight) Branch hours for 10 days. benzonatate 2021- No [id number] 200mg Take 2 Univers (TESSALON 2-03 02-14 capsules ity o f PERLES) 100 00:00: 05:59 by mouth [place] mg capsule 00 :00 every 8 Medica l (eight) Branch hours for 10 days. benzonatate 2021- No [id number] 200mg Take 2 Univers (TESSALON 2-03 02-14 capsules ity o f PERLES) 100 00:00: 05:59 by mouth [place] mg capsule 00 :00 every 8 Medica l (eight) Branch hours for 10 days. benzonatate 2021- No [id number] 200mg Take 2 Univers (TESSALON 2-03 02-06 capsules ity o f PERLES) 100 00:00: 00:00 by mouth [place] mg capsule 00 :00 every 8 Medica l (eight) Branch hours for 10 days. montelukast 2021- No [id number] 10mg Take 1 Univers (SINGULAIR) 05-18-06 tablet by it y of 10 mg 00:00: 00:00 mouth [place] tablet 00 :00 daily for Medical 30 days. Branch traZODone Yes 100mg Take 100 Uni vers 100 mg 1-03 mg by ity of tablet 10:57: mouth at [place] [address] bedtime. Medical Branch losartan Yes 100mg Take 100 Univ ers 100 mg 1-03 mg by ity of tablet 10:57: mouth [place] 34 daily. Medical Branch gabapentin Yes 300mg [...] by ity of tablet 10:57: mouth at [place] [address] bedtime. Medical Branch traZODone Yes 100mg Take 100 Uni vers 100 mg 1-03 mg by ity of tablet 10:57: mouth at [place] 34 bedtime. Medical Branch traZODone Yes 100mg Take 100 Uni vers 100 mg 1-03 mg by ity of tablet 10:57: mouth at [place] [address] bedtime. Medical Branch maalox:diph No 15mL 15 [...] 04/15/21 at 1445, [place] iopamidol 2021- No [id number] 120mL 120 mL, Univers (ISOVUE 04-15 Intravenou ity o f 370-500 mL) 20:13: 20:14 s, ONCE, 1 [place] injection 00 :00 dose, On Medica l 120 mL 04/15/21 Branch at 1430, Routine famotidine 2021- No [id number] 40mg Take 2 Univers (PEPCID) 20 04-15 tablets by i ty of mg tablet 00:00: 05:59 mouth 2 [place] 00 :00 (two) Medical times Branch daily for 15 days. proMETHazin 2021- No [id number] 25mg Take 1 Univers e 25 mg [...] dication: Hypertensi ve Emergency dicyclomine 2020-04 Yes [id number] 20mg 20 mg, Univers (BENTYL) 05-27 Intramuscu ity o f injection 02:00: lar, QID, [place] 20 mg 00 First dose Medical on Sat Branch 03/25/21 at 2000, Until Discontinu ed, Routine iopamidol 2020-04- No [id number] 120mL 120 mL, Univers (ISOVUE 05-27 Intravenou ity o f 370-500 mL) 01:58: 01:58 s, ONCE, 1 [place] injection 00 :00 dose, On Medica l 120 mL Sat Branch 03/25/21 at 2015, Routine NaCl 0.9% 2020-04- No [id number] 1000mL at 999 Univers (NS) bolus 05-27 mL/hr, ity of infusion 01:30: 03:00 1,000 mL, [place] 1,000 mL 00 :00 IV Medical Infusion, Branch ONCE, 1 dose, On 03/25/21 at 1930, [place] ondansetron 2020-04- No [id number] 4mg 4 mg, Slow Univers (ZOFRAN 05-27 IV Push, ity of (PF)) 01:30: 01:48 ONCE, 1 [place] injection 4 00 :00 dose, On Medi brandy mg Sat Branch 03/25/21 at 1930, [place] famotidine 2020-04 No [id number] 20mg 20 mg, Univers (PEPCID 05-27 Slow IV ity of (PF)) 01:30: 01:48 Push, [place] injection 00 :00 ONCE, 1 Medical 20 mg dose, On Branch 03/25/21 at 1930, [place] ketorolac 2020-04- No [id number] 30mg 30 mg, U nivers (TORADOL) 05-27 Slow IV ity of injection 01:30: 01:49 Push, [place] 30 mg 00 :00 ONCE, 1 Medical dose, On Branch 03/25/21 at 1930, [place] FENTanyl PF 2020-04 No [id number] 75ug 75 mcg, Univers (SUBLIMAZE 05-27 Slow IV ity o f (PF)) 01:30: 01:48 Push, [place] injection 00 :00 ONCE, 1 Medical 75 [...] On Branch 03/20/21 at 2000, STAT diphenhydrA 2020-04- No [...] 1 Medical 10 mg dose, On Branch [facility] 03/20/21 at 2000, [place] FENTanyl PF 2020-04 No 75ug 75 mcg, Un you (SUBLIMAZE 05-21 Slow IV ity o f (PF)) 23:30: 22:45 Push, [place] injection 00 :00 ONCE, 1 Medical 75 mcg dose, On Branch [facility] 03/20/21 at 1730, Routine ketorolac 2020-04- No 30mg 30 mg, Unive rs (TORADOL) 05-21 Slow IV ity of injection 23:30: 22:44 Push, [place] 30 mg 00 :00 ONCE, 1 Medical dose, On [facility] 03/20/21 at 1730, Routine
community board member approving Restricted medication : MEKA HAMMONDS ondansetron 2020-04- No 4mg 4 mg, Slow Univers (ZOFRAN 05-21 IV Push, ity of (PF)) 23:30: 22:44 ONCE, 1 [place] injection 4 00 :00 dose, On Medi brandy mg [facility] 03/20/21 at 1730, [place] dicyclomine 2020-04- No 20mg 20 mg, Uni vers (BENTYL) 05-21 Intramuscu ity of injection 23:30: 23:15 lar, ONCE, [place] 20 mg 00 :00 1 dose, On Medical [facility] 03/20/21 at 1730, Routine iopamidol 2020-04- No 100mL 100 mL, Uni vers (ISOVUE 05-21 Intravenou ity o f 370-500 mL) 22:50: 23:15 s, ONCE, 1 [place] injection 00 :00 dose, On Medica l 100 mL [facility] 03/20/21 at 1715, Routine ondansetron 2020-04- No ondansetro Univers 4 mg tablet 05-21 n HCl 4 mg i ty of 18:55: 00:00 tablet [place] 24 :00 [facility] metoclopram 2020-04 Yes [id number] 10mg Take 1 Univers selena HCl 10 05-21 tablet by ity of mg tablet 00:00: mouth [place] 00 every 6 Medical (six) Branch hours as needed for Nausea and Vomiting (N/V). dicyclomine 2020-04 Yes [id number] 20mg Take 1 Univers 20 mg 2-06 tablet by ity of tablet 00:00: mouth 4 00 (four) Medical times Branch daily. metoclopram 2020-04 Yes [id number] 10mg Take 1 Univers selena HCl 10 2-06 tablet by ity of mg tablet 00:00: mouth [place] 00 every 6 Medical (six) Branch hours as needed for Nausea and Vomiting (N/V). dicyclomine 2020-04 Yes [id number] 20mg Take 1 Univers 20 mg 2-06 tablet by ity of tablet 00:00: mouth (four) Medical times Branch daily. metoclopram 2020-04 Yes [id number] 10mg Take 1 Univers selena HCl 10 2-06 tablet by ity of mg tablet 00:00: mouth [place] 00 every 6 Medical (six) Branch hours as needed for Nausea and Vomiting (N/V). dicyclomine 2020-04 Yes [id number] 20mg Take 1 Univers 20 mg 2-06 tablet by ity of tablet 00:00: mouth (four) Medical times Branch daily. metoclopram 2020-04 Yes [id number] 10mg Take 1 Univers selena HCl 10 2-06 tablet by ity of mg tablet 00:00: mouth [place] 00 every 6 Medical (six) Branch hours as needed for Nausea and Vomiting (N/V). dicyclomine 2020-04 Yes [id number] 20mg Take 1 Univers 20 mg 2-06 tablet by ity of tablet 00:00: mouth (four) Medical times Branch daily. metoclopram 2020-04 Yes [id number] 10mg Take 1 Univers selena HCl 10 2-06 tablet by ity of mg tablet 00:00: mouth [place] 00 every 6 Medical (six) Branch hours as needed for Nausea and Vomiting (N/V). dicyclomine 2020-04 Yes [id number] 20mg Take 1 Univers 20 mg 2-06 tablet by ity of tablet 00:00: mouth 4 00 (four) Medical times Branch daily. metoclopram 2020-04 Yes [id number] 10mg Take 1 Univers selena HCl 10 2-06 tablet by ity of mg tablet 00:00: mouth [place] 00 every 6 Medical (six) Branch hours as needed for Nausea and Vomiting (N/V). dicyclomine 2020-04 Yes [id number] 20mg Take 1 Univers 20 mg 2-06 tablet by ity of tablet 00:00: mouth 4 [place] 00 (four) Medical times Branch daily. metoclopram 2020-04 Yes [id number] 10mg Take 1 Univers selena HCl 10 2-06 tablet by ity of mg tablet 00:00: mouth [place] 00 every 6 Medical (six) Branch hours as needed for Nausea and Vomiting (N/V). dicyclomine 2020-04 Yes [id number] 20mg Take 1 Univers 20 mg 2-06 tablet by ity of tablet 00:00: mouth 4 [place] 00 (four) Medical times Branch daily. metoclopram 2020-04 Yes [id number] 10mg Take 1 Univers selena HCl 10 2-06 tablet by ity of mg tablet 00:00: mouth [place] 00 every 6 Medical (six) Branch hours as needed for Nausea and Vomiting (N/V). dicyclomine 2020-04 Yes [id number] 20mg Take 1 Univers 20 mg 2-06 tablet by ity of tablet 00:00: mouth 4 [place] 00 (four) Medical times Branch daily. metoclopram 2020-04 Yes [id number] 10mg Take 1 Univers selena HCl 10 2-06 tablet by ity of mg tablet 00:00: mouth [place] 00 every 6 Medical (six) Branch hours as needed for Nausea and Vomiting (N/V). dicyclomine 2020-04 Yes [id number] 20mg Take 1 Univers 20 mg 2-06 tablet by ity of tablet 00:00: mouth 4 [place] 00 (four) Medical times Branch daily. metoclopram 2020-04- No [id number] 10mg Take 1 Univers selena HCl 10 2-06 02-06 tablet by ity of mg tablet 00:00: 00:00 mouth [place] 00 :00 every 6 Medical (six) Branch hours as needed for Nausea and Vomiting (N/V). dicyclomine 2020-04- No [id number] 20mg Take 1 Univers 20 mg 2-06 02-06 tablet by ity of tablet 00:00: 00:00 mouth 4 [place] 00 :00 (four) Medical times Branch daily. famotidine 2020-04 No [id number] 20mg Take 1 Univers 20 mg 2-17 tablet by ity of tablet 00:00: 05:59 mouth at [place] 00 :00 bedtime Medical for 10 Branch days. famotidine 2020-04- No [id number] 20mg Take 1 Univers 20 mg 2 12-17 tablet by ity of tablet 00:00: 05:59 mouth at [place] 00 :00 bedtime Medical for 10 Branch days. famotidine 2020-04 No [id number] 20mg Take 1 Univers 20 mg 2-17 tablet by ity of tablet 00:00: 05:59 mouth at [place] 00 :00 bedtime Medical for 10 Branch days. ketorolac 2020-04 No 30mg 30 mg, Unive rs (TORADOL) 04-15 Slow IV ity of injection 02:15: 01:11 Push, [place] 30 mg 00 :00 ONCE, 1 Medical dose, On Branch [place] 02/12/21 at 2115, Routine
community board member approving Restricted medication : ERASMO GRAYSON proMETHazin 2020-04 No 25mg 25 mg, IV Univers e 04-15 Piggyback, ity of (PHENERGAN) 02:15: 01:12 ONCE, 1 [place] 25 mg in 00 :00 dose, On Medical NaCl 0.9% [place] Branch (NS) 50 mL 02/12/21 piggyback at 2115, 50 mL iopamidol 2020-04- No [id number] 120mL 120 mL, Univers (ISOVUE 02-12 Intravenou ity o f 370-500 mL) 23:30: 22:13 s, ONCE, 1 [place] injection 00 :00 dose, On Medica l 120 mL [place] Branch 02/12/21 at 1830, Routine morpHINE 2020-04 No 4mg 4 mg, [...] 1 Medical 20 mg dose, On Branch [place] 02/12/21 at 1630, [place] NaCl 0.9% 2020-04 No 1000mL at 999 Uni vers (NS) bolus 0-31 10-31 mL/hr, ity of infusion 21:30: 21:30 1,000 mL, [place] 1,000 mL 00 :00 IV Medical Infusion, Branch ONCE, 1 dose, On [place] 02/12/21 at 1630, [place] ondansetron 2020-04- No 8mg 8 mg, Slow Univers (ZOFRAN 0-31 10-31 IV Push, ity of (PF)) 21:30: 20:23 ONCE, 1 [place] injection 8 00 :00 dose, On Medi brandy mg [facility] 02/12/21 at 1630, [place] ketorolac 2020-04 No 30mg 30 mg, Unive rs (TORADOL) 0-31 10- Slow IV ity of injection 21:30: 20:23 Push, [place] 30 mg 00 :00 ONCE, 1 Medical dose, On Branch [place] 02/12/21 at 1630, [place]
Fa culty member approving Restricted medication : ROSALINDA FISHER morpHINE 2020-04 No 4mg 4 mg, Slow Un you injection 4 0-31 10-31 IV Push, ity of mg 21:30: 20:23 ONCE, 1 [place] 00 :00 dose, On Medical [facility] 02/12/21 at 1630, STAT ondansetron 2020-04 Yes [id number] 8mg Take 1 Univers 8 mg tablet 0-31 tablet by ity of 00:00: mouth [place] 00 every 8 Medical (eight) Branch hours as needed for Nausea and Vomiting (N/V). ondansetron 2020-04- No [id number] 8mg Take 1 [facility] 8 mg tablet 0-31 12-06 tablet by it y of 00:00: 00:00 mouth [place] 00 :00 every 8 Medical (eight) Branch hours as needed for Nausea and Vomiting (N/V). morpHINE 2020-04- No 4mg 4 mg, Slow Un you injection 4 0-06 01-18 IV Push, ity of mg 07:00: 05:56 [...] No 15mL 15 mL, Uni vers enhydrAMINE 0-01-18 Oral, ity of :lidocaine 06:00: 05:08 ONCE, 1 [place] 2 % viscous 00 :00 dose, On Medi brandy 1:1:1 Wed Branch ([facility] 01/18/21 at [facility]) 0100, oral Routine suspension 15 mL dicyclomine 2020-04 No 20mg 20 mg, Uni vers (BENTYL) 001-18 Oral, ity of tablet 20 06:00: 05:08 ONCE, 1 [place] mg 00 :[place] dose, On Medical Wed Branch 01/18/21 at 0100, Routine iopamidol 2020-04 No [id number] 120mL 120 mL, Univers (ISOVUE 001-18 Intravenou ity o f 370-500 mL) 04:45: 03:33 s, ONCE, 1 [place] injection 00 :00 dose, On Medica l 120 mL [facility] Branch 01/17/21 at 2345, Routine morpHINE 2020-04 No 4mg 4 mg, Slow Un you injection 4 001-18 IV Push, ity of mg 03:45: 02:58 ONCE, 1 [place] 00 :00 dose, On Medical e Branch 01/17/21 at 2245, STAT ondansetron 2020-04 No 4mg 4 mg, Slow Univers (ZOFRAN 0-01-18 IV Push, ity of (PF)) 03:45: 02:59 ONCE, 1 [place] injection 4 00 :00 dose, On Medi brandy mg [facility] Branch 01/17/21 at 2245, LOUIS NaCl 0.9% 2020-04 1000mL at 999 Uni vers (NS) bolus 0-06 10-06 mL/hr, ity of infusion 03:45: 06:13 1,000 mL, [place] as 1,000 mL 00 :00 IV Medical Piggyback, Branch ONCE, 1 dose, On Sat01/17/21 at 2245, STAT diazePAM 2 Yes 2mg Take 2 mg Un you mg tablet 9-25 by mouth. ity o f 11:25: [address] Yes erythromyc Univers n 5 mg/gram 9-25 in 5 ity of (0.5 %) 11:25: mg/gram [place] ophthalmic 57 (0.5 %) Medica l ointment eye Branch ointment ondansetron Yes ondansetro Univers 4 mg tablet 9-25 n HCl 4 mg it y of 11:25: tablet [address] diazePAM 2 Yes 2mg Take 2 mg Un you mg tablet 9-25 by mouth. ity o f 11:25: [address] erythromyci Yes erythromyc Univers n 5 mg/gram 9-25 in 5 ity of (0.5 %) 11:25: mg/gram [place] ophthalmic 57 (0.5 %) Medica l ointment eye Branch ointment ondansetron Yes ondansetro Univers 4 mg tablet 9-25 n HCl 4 mg it y of 11:25: tablet [address] diazePAM 2 Yes 2mg Take 2 mg Un you mg tablet 9-25 by mouth. ity o f 11:25: [address] erythromyci Yes erythromyc Univers n 5 mg/gram 9-25 in 5 ity of (0.5 %) 11:25: mg/gram [place] ophthalmic 57 (0.5 %) Medica l ointment eye Branch ointment ondansetron Yes ondansetro Univers 4 mg tablet 9-25 n HCl 4 mg it y of 11:25: tablet [address] diazePAM 2 Yes 2mg Take 2 [...] 4 mg it y of 11:25: tablet [place] [address] Medical Branch diazePAM 2 Yes 2mg Take 2 mg Un you mg tablet 9-25 by mouth. ity o f 11:25: [place] [address] Medical Branch erythromyci Yes erythromyc Univers n 5 mg/gram 9-25 in 5 ity of (0.5 %) 11:25: mg/gram [place] ophthalmic 57 (0.5 %) Medica l ointment eye Branch ointment ondansetron Yes ondansetro Univers 4 mg tablet 9-25 n HCl 4 mg it y of 11:25: tablet [place] [address] Medical Branch diazePAM 2 Yes 2mg Take 2 mg Un you mg tablet 9-25 by mouth. ity o f 11:25: [place] [address] Medical Branch erythromyci Yes erythromyc Univers n 5 mg/gram 9-25 in 5 ity of (0.5 %) 11:25: mg/gram [place] ophthalmic 57 (0.5 %) Medica l ointment eye Branch ointment ondansetron Yes ondansetro Univers 4 mg tablet 9-25 n HCl 4 mg it y of 11:25: tablet [place] [address] Medical Branch diazePAM 2 Yes 2mg Take 2 mg Un you mg tablet 9-25 by mouth. ity o f 11:25: [place] [address] Medical Branch erythromyci Yes erythromyc Univers n 5 mg/gram 9-25 in 5 ity of (0.5 %) 11:25: mg/gram [place] ophthalmic 57 (0.5 %) Medica l ointment eye Branch ointment diazePAM 2 Yes 2mg Take 2 mg Un you mg tablet 9-25 by mouth. ity o f 11:25: [place] [address] Medical Branch erythromyci Yes erythromyc Univers n 5 mg/gram 9-25 in 5 ity of (0.5 %) 11:25: mg/gram [place] ophthalmic 57 (0.5 %) Medica l ointment eye Branch ointment diazePAM 2 Yes 2mg Take 2 mg Un you mg tablet 9-25 by mouth. ity o f 11:25: [address] Branch erythroci Yes erythromyc Univers n 5 mg/gram 9-25 in 5 ity of (0.5 %) 11:25: mg/gram [place] ophthalmic 57 (0.5 %) Medica l ointment eye Branch ointment diazePAM 2 Yes 2mg Take 2 mg Un you mg tablet 9-25 by mouth. ity o f 11:25: [address] Yes erythromyc Univers n 5 mg/gram 9-25 in 5 ity of (0.5 %) 11:25: mg/gram [place] ophthalmic 57 (0.5 %) Medica l ointment eye Branch ointment diazePAM 2 Yes 2mg Take 2 mg Un you mg tablet 9-25 by mouth. ity o f 11:25: [address] Yes erythromyc Univers n 5 mg/gram 9-25 in 5 ity of (0.5 %) 11:25: mg/gram [place] ophthalmic 57 (0.5 %) Medica l ointment eye Branch ointment albuterol Yes [id number] 2{puff} Inhale 2 Univers 90 9-25 Puffs ity of mcg/actuati 00:00: every 6 [place] on inhaler 00 (six) Medical hours as Branch needed for Wheezing or Shortness of Breath. albuterol Yes [id number] 2{puff} Inhale 2 Univers 90 9-25 Puffs ity of mcg/actuati 00:00: every 6 [place] on inhaler 00 (six) Medical hours as Branch needed for Wheezing or Shortness of Breath. albuterol Yes [id number] 2{puff} Inhale 2 Univers 90 9-25 Puffs ity of mcg/actuati 00:00: every 6 [place] on inhaler 00 (six) Medical hours as Branch needed for Wheezing or Shortness of Breath. albuterol Yes [id number] 2{puff} Inhale 2 Univers 90 9-25 Puffs ity of mcg/actuati 00:00: every 6 [place] on inhaler 00 (six) Medical hours as Branch needed for Wheezing or Shortness of Breath. albuterol Yes [id number] 2{puff} Inhale 2 Univers 90 9-25 Puffs ity of mcg/actuati 00:00: every 6 [place] on inhaler 00 (six) Medical hours as Branch needed for Wheezing or Shortness of Breath. albuterol Yes [id number] 2{puff} Inhale 2 Univers 90 9-25 Puffs ity of mcg/actuati 00:00: every 6 [place] on inhaler 00 (six) Medical hours as Branch needed for Wheezing or Shortness of Breath. albuterol Yes [id number] 2{puff} Inhale 2 Univers 90 9-25 Puffs ity of mcg/actuati 00:00: every 6 [place] on inhaler 00 (six) Medical hours as Branch needed for Wheezing or Shortness of Breath. albuterol Yes [id number] 2{puff} Inhale 2 Univers 90 9-25 Puffs ity of mcg/actuati 00:00: every 6 [place] on inhaler 00 (six) Medical hours as Branch needed for Wheezing or Shortness of Breath. albuterol Yes [id number] 2{puff} Inhale 2 Univers 90 9-25 Puffs ity of mcg/actuati 00:00: every 6 [place] on inhaler 00 (six) Medical hours as Branch needed for Wheezing or Shortness of Breath. albuterol Yes [id number] 2{puff} Inhale 2 Univers 90 9-25 Puffs ity of mcg/actuati 00:00: every 6 [place] on inhaler 00 (six) Medical hours as Branch needed for Wheezing or Shortness of Breath. albuterol Yes [id number] 2{puff} Inhale 2 Univers 90 9-25 Puffs ity of mcg/actuati 00:00: every 6 [place] on inhaler 00 (six) Medical hours as Branch needed for Wheezing or Shortness of Breath. albuterol Yes [id number] 2{puff} Inhale 2 Univers 90 9-25 Puffs ity of mcg/actuati 00:00: every 6 [place] on inhaler 00 (six) Medical hours as Branch needed for Wheezing or Shortness of Breath. albuterol Yes [id number] 2{puff} Inhale 2 Univers 90 9-25 Puffs ity of mcg/actuati 00:00: every 6 [place] on inhaler 00 (six) Medical hours as Branch needed for Wheezing or Shortness of Breath. albuterol Yes [id number] 2{puff} Inhale 2 Univers 90 9-25 Puffs ity of mcg/actuati 00:00: every 6 [place] on inhaler 00 (six) Medical hours as Branch needed for Wheezing or Shortness of Breath. albuterol Yes [id number] 2{puff} Inhale 2 Univers 90 9-25 Puffs ity of mcg/actuati 00:00: every 6 [place] on inhaler 00 (six) Medical hours as Branch needed for Wheezing or Shortness of Breath. albuterol Yes [id number] 2{puff} Inhale 2 Univers 90 9-25 Puffs ity of mcg/actuati 00:00: every 6 [place] on inhaler 00 (six) Medical hours as Branch needed for Wheezing or Shortness of Breath. albuterol Yes [id number] 2{puff} Inhale 2 Univers 90 9-25 Puffs ity of mcg/actuati 00:00: every 6 [place] on inhaler 00 (six) Medical hours as Branch needed for Wheezing or Shortness of Breath. albuterol Yes [id number] 2{puff} Inhale 2 Univers 90 9-25 Puffs ity of mcg/actuati 00:00: every 6 [place] on inhaler 00 (six) Medical hours as Branch needed for Wheezing or Shortness of Breath. albuterol Yes [id number] 2{puff} Inhale 2 Univers 90 9-25 Puffs ity of mcg/actuati 00:00: every 6 [place] on inhaler 00 (six) Medical hours as Branch needed for Wheezing or Shortness of Breath. albuterol Yes [id number] 2{puff} Inhale 2 Univers 90 9-25 Puffs ity of mcg/actuati 00:00: every 6 [place] on inhaler 00 (six) Medical hours as Branch needed for Wheezing or Shortness of Breath. albuterol Yes [id number] 2{puff} Inhale 2 Univers 90 9-25 Puffs ity of mcg/actuati 00:00: every 6 [place] on inhaler 00 (six) Medical hours as Branch needed for Wheezing or Shortness of Breath. albuterol Yes [id number] 2{puff} Inhale 2 Univers 90 9-25 Puffs ity of mcg/actuati 00:00: every 6 [place] on inhaler 00 (six) Medical hours as Branch needed for Wheezing or Shortness of Breath. albuterol Yes [id number] 2{puff} Inhale 2 Univers 90 9-25 Puffs ity of mcg/actuati 00:00: every 6 [place] on inhaler 00 (six) Medical hours as Branch needed for Wheezing or Shortness of Breath. albuterol 2021- No [id number] 2{puff} Inhale 2 Univers 90 9-25 05-20 Puffs ity of mcg/actuati 00:00: 00:00 every 6 [place] on inhaler 00 :00 (six) Medical hours as Branch needed for Wheezing or Shortness of Breath. promethazin 2020- No [id number] 5mL Take 5 mL Univers e-dextromet 9-25 10-03 by mouth 4 i ty of horphan 00:00: 04:59 (four) [place] 6.25-15 00 :00 times Medical mg/5 mL daily as Branch syrup needed for Cough or Cold symptoms for up to 7 days. promethazin 2020- No [id number] 5mL Take 5 mL Univers e-dextromet 9-25 10-03 by mouth 4 i ty of horphan 00:00: 04:59 (four) [place] 6.25-15 00 :00 times Medical mg/5 mL daily as Branch syrup needed for Cough or Cold symptoms for up to 7 days. promethazin 2020- No [id number] 5mL Take 5 mL Univers e-dextromet 9-25 10-03 by mouth 4 i ty of horphan 00:00: 04:59 (four) [place] 6.25-15 00 :00 times Medical mg/5 mL daily as Branch syrup needed for Cough or Cold symptoms for up to 7 days. tiZANidine 2020-0 Yes Univers 2 mg tablet 9-23 ity of 00:00: [place] [facility] Branch tiZANidine 2020-0 Yes Univers 2 mg tablet 9-23 ity of 00:00: [place] [facility] tiZANidine 2020-0 Yes Univers 2 mg tablet 9-23 ity of 00:00: [place] [facility] tiZANidine 2020-0 Yes Univers 2 mg tablet 9-23 ity of 00:00: [place] [facility] tiZANidine 2020-0 Yes Univers 2 mg tablet 9-23 ity of 00:00: [place] [facility] tiZANidine 2020-0 Yes Univers 2 mg tablet 9-23 ity of 00:00: [place] [facility] tiZANidine 2020-0 Yes Univers 2 mg tablet 9- ity of 00:00: [place] [facility] tiZANidine 2020-0 Yes Univers 2 mg tablet 9-23 ity of 00:00: [place] [facility] tiZANidine 2020-0 Yes Univers 2 mg tablet 9-23 ity of 00:00: [place] [facility] tiZANidine 2020-0 Yes Univers 2 mg tablet 9- ity of 00:00: [place] [facility] tiZANidine 2020-0 Yes Univers 2 mg tablet 9-23 ity of 00:00: [place] [facility] tiZANidine 2020-0 Yes Univers 2 mg tablet 9-23 ity of 00:00: [place] [facility] tiZANidine 2020-0 Yes Univers 2 mg tablet 9-23 ity of 00:00: [place] [facility] tiZANidine 2020-0 Yes Univers 2 mg tablet 9-23 ity of 00:00: [place] [facility] tiZANidine 2020-0 Yes Univers 2 mg tablet 9-23 ity of 00:00: [place] [facility] tiZANidine 2020-0 Yes Univers 2 mg tablet 9-23 ity of 00:00: [place] [facility] tiZANidine 2020-0 Yes Univers 2 mg tablet 9-23 ity of 00:00: [place] [address] Medical Branch tiZANidine 2021-0 Yes Univers 2 mg tablet 9-23 ity of 00:00: [place] [facility] tiZANidine 2021-0 Yes Univers 2 mg tablet 9-23 ity of 00:00: [place] [facility] tiZANidine 2021-0 Yes Univers 2 mg tablet 9-23 ity of 00:00: [place] [facility] tiZANidine 2021-0 Yes Univers 2 mg tablet 9-23 ity of 00:00: [place] [facility] tiZANidine 2021-0 Yes Univers 2 mg tablet 9-23 ity of 00:00: [place] [facility] tiZANidine 2021-0 Yes Univers 2 mg tablet 9-23 ity of 00:00: [place] [facility] tiZANidine 2021-0 Yes Univers 2 mg tablet 9- ity of 00:00: [place] [facility] tiZANidine 2021-0 Yes Univers 2 mg tablet 9-23 ity of 00:00: [place] [facility] tiZANidine 2021-0 Yes 4mg Take 4 mg Un you 2 mg tablet 9-23 by mouth 2 it y of 00:00: (two) [place] 00 times Medical daily. Branch tiZANidine 1-0 Yes 4mg Take 4 mg Un you 2 mg tablet 9-23 by mouth 2 it y of 00:00: (two) [place] 00 times Medical daily. Branch tiZANidine 2021-0 Yes 4mg Take 4 mg Un you 2 mg tablet 9-23 by mouth 2 it y of 00:00: (two) [place] times Medical daily. Branch tiZANidine 2021-0 Yes 4mg Take 4 mg Un you 2 mg tablet 9-23 by mouth 2 it y of 00:00: (two) [place] 00 times Medical daily. Branch tiZANidine 2021-0 Yes 4mg Take 4 mg Un you 2 mg tablet 9-23 by mouth 2 it y of 00:00: (two) [place] 00 times Medical daily. Branch tiZANidine 2021-0 Yes 4mg Take 4 mg Un you 2 mg tablet 9-23 by mouth 2 it y of 00:00: (two) [place] 00 times Medical daily. Branch tiZANidine 2021-0 Yes 4mg Take 4 mg Un you 2 mg tablet 9-23 by mouth 2 it y of 00:00: (two) [place] 00 times Medical daily. Branch tiZANidine 2020-0 Yes 4mg Take 4 mg Un you 2 mg tablet 23 by mouth 2 it y of 00:00: (two) [place] 00 times Medical daily. Branch tiZANidine 2020-0 Yes 4mg Take 4 mg Un you 2 mg tablet 23 by mouth 2 it y of 00:00: (two) [place] 00 times Medical daily. Branch tiZANidine 2020-0 Yes 4mg Take 4 mg Un you 2 mg tablet 23 by mouth 2 it y of 00:00: (two) [place] 00 times Medical daily. Branch tiZANidine 2020-0 Yes 4mg Take 4 mg Un you 2 mg tablet 01-05 by mouth 2 it y of 00:00: (two) [place] 00 times Medical daily. Branch ketorolac 2020- No 30mg 30 mg, Unive [...] Branch 12/30/20 at 1800, Routine FENTanyl PF No 50ug 50 mcg, Un [...] brandy 1:1:1 Fri Branch ([facility] 12/30/20 at [facility]) 1645, oral Routine suspension 15 mL famotidine 2020- No 20mg 20 mg, Univ ers (PEPCID 12-30 Slow IV ity of (PF)) 21:45: 20:37 Push, [place] injection 00 :00 ONCE, 1 Medical 20 mg dose, On Branch Sat12/30/20 at 1645, Routine maalox:diph 2020- No 15mL 15 mL, Uni vers enhydrAMINE 12-30 Oral, ity of :lidocaine 21:45: 20:37 ONCE, 1 [place] 2 % viscous 00 :00 dose, On Medi brandy 1:1:1 Fri Branch ([facility]MOUT 12/30/20 at [facility]) 1645, oral Routine suspension 15 mL famotidine 2020- No 20mg 20 mg, Univ ers (PEPCID 12-30 Slow IV ity of (PF)) 21:45: 20:37 Push, [place] injection 00 :00 ONCE, 1 Medical 20 mg dose, On Branch Sat12/30/20 at 1645, Routine iopamidol 2020- No [id number] 80mL 80 mL, Univers (ISOVUE 12-30 Intravenou ity o f 370-500 mL) 20:00: 18:48 s, ONCE, 1 [place] injection 00 :00 dose, On Medica l 80 mL Fri Branch 12/30/20 at 1500, Routine iopamidol 2020- No [id number] 80mL 80 mL, Univers (ISOVUE 12-30 Intravenou ity o f 370-500 mL) 20:00: 18:48 s, ONCE, 1 [place] injection 00 :00 dose, On Medica l 80 mL Fri Branch 12/30/20 at 1500, Routine morpHINE 2020- No 4mg 4 mg, Slow Un you injection 4 12-30 IV Push, ity of mg 19:30: 18:35 ONCE, 1 [place] 00 :00 dose, On [facility] Branch 12/30/20 at 1430, STAT [...] 4mg 4 mg, Slow Un you injection 12-30 IV Push, ity of mg 19:30: [...] by ity of tablet 10:15: mouth at [place] [address] bedtime. Medical Branch traZODone 2020-0 Yes 100mg Take 100 Uni vers 100 mg 9-17 mg by ity of tablet 10:15: mouth at [place] [address] bedtime. Medical Branch traZODone 2020-0 Yes 100mg Take 100 Uni vers 100 mg 9-17 mg by ity of tablet 10:15: mouth at [place] [address] bedtime. Medical Branch traZODone 2020-0 Yes 100mg Take 100 Uni vers 100 mg 9-17 mg by ity of tablet 10:15: mouth at [place] [address] bedtime. Medical Branch traZODone 2020-0 Yes 100mg Take 100 Uni vers 100 mg 9-17 mg by ity of tablet 10:15: mouth at [place] [address] bedtime. Medical Branch traZODone 2020-0 Yes 100mg Take 100 Uni vers 100 mg 9-17 mg by ity of tablet 10:15: mouth at [place] [address] bedtime. Medical Branch traZODone 2020-0 Yes 100mg Take 100 Uni vers 100 mg 9-17 mg by ity of tablet 10:15: mouth at [place] [address] bedtime. Medical Branch traZODone 2020-0 Yes 100mg Take 100 Uni vers 100 mg 9-17 mg by ity of tablet 10:15: mouth at [place] [address] bedtime. Medical Branch traZODone 2020-0 Yes 100mg Take 100 Uni vers 100 mg 9-17 mg by ity of tablet 10:15: mouth at [place] [address] bedtime. Medical Branch traZODone 2020-0 Yes 100mg Take 100 Uni vers 100 mg 9-17 mg by ity of tablet 10:15: mouth at [place] [address] bedtime. Medical Branch traZODone 2020-0 Yes 100mg Take 100 Uni vers 100 mg 9-17 mg by ity of tablet 10:15: mouth at [place] [address] bedtime. Medical Branch traZODone 2021-0 Yes 100mg Take 100 Uni vers 100 mg 9-17 mg by ity of tablet 10:15: mouth at [place] [address] bedtime. Medical Branch traZODone 0 Yes 100mg Take 100 Uni vers 100 mg 9-17 mg by ity of tablet 10:15: mouth at [place] [address] bedtime. Medical Branch traZODone 0 Yes 100mg Take 100 Uni vers 100 mg 9-17 mg by ity of tablet 10:15: mouth at [place] [address] bedtime. Medical Branch traZODone 0 Yes 100mg Take 100 Uni vers 100 mg 9-17 mg by ity of tablet 10:15: mouth at [place] [address] bedtime. Medical Branch traZODone 0 Yes 100mg Take 100 Uni vers 100 mg 9-17 mg by ity of tablet 10:15: mouth at [place] [address] bedtime. Medical Branch dicyclomine 0 Yes [id number] 20mg Take 1 Univers 20 mg 9-17 tablet by ity of tablet 00:00: mouth [place] 00 every 6 Medical (six) Branch hours as needed for Abdominal pain. dicyclomine 0 Yes [id number] 20mg Take 1 Univers 20 mg 9-17 tablet by ity of tablet 00:00: mouth [place] 00 every 6 Medical (six) Branch hours as needed for Abdominal pain. dicyclomine 0 Yes [id number] 20mg Take 1 [facility] 20 mg 9-17 tablet by ity of tablet 00:00: mouth [place] 00 every 6 Medical (six) Branch hours as needed for Abdominal pain. dicyclomine 2020-0 Yes [id number] 20mg Take 1 Univers 20 mg 9-17 tablet by ity of tablet 00:00: mouth [place] 00 every 6 Medical (six) Branch hours as needed for Abdominal pain. dicyclomine 2020-0 Yes [id number] 20mg Take 1 [facility] 20 mg 9-17 tablet by ity of tablet 00:00: mouth [place] 00 every 6 Medical (six) Branch hours as needed for Abdominal pain. dicyclomine 2020-0 Yes [id number] 20mg Take 1 Univers 20 mg 9-17 tablet by ity of tablet 00:00: mouth [place] 00 every 6 Medical (six) Branch hours as needed for Abdominal pain. dicyclomine 2020-0 Yes [id number] 20mg Take 1 Univers 20 mg 9-17 tablet by ity of tablet 00:00: mouth [place] 00 every 6 Medical (six) Branch hours as needed for Abdominal pain. dicyclomine 1-0 Yes [id number] 20mg Take 1 [facility] 20 mg 9-17 tablet by ity of tablet 00:00: mouth [place] 00 every 6 Medical (six) Branch hours as needed for Abdominal pain. dicyclomine 2020-0 Yes [id number] 20mg Take 1 Univers 20 mg 9-17 tablet by ity of tablet 00:00: mouth [place] 00 every 6 Medical (six) Branch hours as needed for Abdominal pain. dicyclomine 2020-0 Yes [id number] 20mg Take 1 Univers 20 mg 9-17 tablet by ity of tablet 00:00: mouth [place] 00 every 6 Medical (six) Branch hours as needed for Abdominal pain. dicyclomine 2020-0 Yes [id number] 20mg Take 1 Univers 20 mg 9-17 tablet by ity of tablet 00:00: mouth [place] 00 every 6 Medical (six) Branch hours as needed for Abdominal pain. dicyclomine 2020-0 Yes [id number] 20mg Take 1 Univers 20 mg 9-17 tablet by ity of tablet 00:00: mouth [place] 00 every 6 Medical (six) Branch hours as needed for Abdominal pain. dicyclomine 2020-0 Yes [id number] 20mg Take 1 Univers 20 mg 9-17 tablet by ity of tablet 00:00: mouth [place] 00 every 6 Medical (six) Branch hours as needed for Abdominal pain. dicyclomine 2020-0 Yes [id number] 20mg Take 1 Univers 20 mg 9-17 tablet by ity of tablet 00:00: mouth [place] 00 every 6 Medical (six) Branch hours as needed for Abdominal pain. dicyclomine 1-0 Yes [id number] 20mg Take 1 Univers 20 mg 9-17 tablet by ity of tablet 00:00: mouth [place] 00 every 6 Medical (six) Branch hours as needed for Abdominal pain. dicyclomine 1-0 Yes [id number] 20mg Take 1 Univers 20 mg 9-17 tablet by ity of tablet 00:00: mouth [place] 00 every 6 Medical (six) Branch hours as needed for Abdominal pain. dicyclomine 1-0 Yes [id number] 20mg Take 1 Univers 20 mg 9-17 tablet by ity of tablet 00:00: mouth [place] 00 every 6 Medical (six) Branch hours as needed for Abdominal pain. dicyclomine 2020-0 2- No [id number] 20mg Take 1 Univers 20 mg 9-17 [...] by ity of capsule 10:23: mouth 2 [place] 50 (two) Medical times Branch daily. losartan 202-0 Yes 100mg Take 100 Univ ers 100 mg 9-03 mg by ity of tablet 10:23: mouth [place] 50 daily. Medical Branch gabapentin 2020-0 Yes 300mg Take 300 Un you 300 mg 9-03 mg by ity of capsule 10:23: mouth 2 [place] 50 (two) Medical times Branch daily. cephALEXin 2020-0 2020- No [id number] 500mg Take 1 Univers 500 mg 12-16 capsule by ity of capsule 00:00: 04:59 mouth 4 [place] 00 :00 (four) Medical times [place] daily for 7 days. cephALEXin 2020-0 2020- No [id number] 500mg Take 1 Univers 500 mg 12-16 capsule by ity of capsule 00:00: 04:59 mouth 4 [place] 00 :00 (four) Medical times [place] daily for 7 days. hydrOXYzine 0 Yes Univer s 25 mg 9- ity of tablet 00:00: [place] [address] Medical Branch SERTraline 2020-0 Yes Univers 25 mg 9- ity of tablet 00:00: [place] Medical Branch hydrOXYzine 2020-0 Yes Univer s 25 mg 9-01 ity of tablet 00:00: [place] [facility] Branch SERTraline 2020-0 Yes Univers 25 mg 9-01 ity of tablet 00:00: [place] [facility] Branch hydrOXYzine 2020-0 Yes Univer s 25 mg 9-01 ity of tablet 00:00: [place] [facility] Branch SERTraline 2020-0 Yes Univers 25 mg 9-01 ity of tablet 00:00: [place] [facility] Branch hydrOXYzine 2020-0 Yes Univer s 25 mg 9-01 ity of tablet 00:00: [place] Medical Branch SERTraline 2020-0 Yes Univers 25 mg 9-01 ity of tablet 00:00: [place] [facility] Branch hydrOXYzine 2020-0 Yes Univer s 25 mg 9- ity of tablet 00:00: [place] Medical Branch SERTraline 2020-0 Yes Univers 25 mg 9- ity of tablet 00:00: [place] 00 Medical Branch hydrOXYzine 2020-0 Yes Univer s 25 mg 9- ity of tablet 00:00: [place] Medical Branch SERTraline 2020-0 Yes Univers 25 mg 9- ity of tablet 00:00: [place] [facility] Branch hydrOXYzine 2020-0 Yes Univer s 25 mg 9- ity of tablet 00:00: [place] [facility] Branch SERTraline 2020-0 Yes Univers 25 mg 9- ity of tablet 00:00: [place] [facility] Branch hydrOXYzine 2020-0 Yes Univer s 25 mg 9- ity of tablet 00:00: [place] [address] Medical Branch SERTraline 2020-0 Yes Univers 25 mg 9- ity of tablet 00:00: [place] [facility] Branch hydrOXYzine 2020-0 Yes Univer s 25 mg 9- ity of tablet 00:00: [place] [address] Medical Branch SERTraline 2020-0 Yes Univers 25 mg 9- ity of tablet 00:00: [place] [facility] Branch hydrOXYzine 2020-0 Yes Univer s 25 mg 9- ity of tablet 00:00: [place] [facility] SERTraline 2020-0 Yes Univers 25 mg 9- ity of tablet 00:00: [place] [address] Medical Branch hydrOXYzine 2020-0 Yes Univer s 25 mg 9- ity of tablet 00:00: [place] [address] Medical Branch SERTraline 2020-0 Yes Univers 25 mg 9- ity of tablet 00:00: [place] [address] Medical Branch hydrOXYzine 2020-0 Yes Univer s 25 mg 9- ity of tablet 00:00: [place] [facility] SERTraline 2020-0 Yes Univers 25 mg 9- ity of tablet 00:00: [place] [facility] hydrOXYzine 2020-0 Yes Univer s 25 mg 9- ity of tablet 00:00: [place] [address] Medical Branch SERTraline 2020-0 Yes Univers 25 mg 9- ity of tablet 00:00: [place] [facility] Branch hydrOXYzine 2020-0 Yes Univer s 25 mg 9- ity of tablet 00:00: [place] [address] Medical Branch SERTraline 2020-0 Yes Univers 25 mg 9- ity of tablet 00:00: [place] [facility] Branch hydrOXYzine 2020-0 Yes Univer s 25 mg 9-01 ity of tablet 00:00: [place] [facility] SERTraline 0 Yes Univers 25 mg 12-14 ity of tablet 00:00: [place] [facility] SERTraline 0 Yes Univers 25 mg - ity of tablet 00:00: [place] [facility] SERTraline 0 Yes Univers 25 mg - ity of tablet 00:00: [place] [facility] SERTraline 0 Yes Univers 25 mg 12-14 ity of tablet 00:00: [place] [facility] SERTraline 0 Yes Univers 25 mg 12-14 ity of tablet 00:00: [place] [facility] SERTraline 0 Yes Univers 25 mg 12-14 ity of tablet 00:00: [place] [facility] SERTraline 0 Yes Univers 25 mg 12-14 ity of tablet 00:00: [address] SERTraline 0 Yes Univers 25 mg 12-14 ity of tablet 00:00: [place] [facility] SERTraline Yes Univers 25 mg 12-14 ity of tablet 00:00: [address] SERTraline 2021- No Univer s 25 mg 12-14 05-20 ity of tablet 00:00: 00:00 [place] 00 :00 [facility] hydrOXYzine 2021- No Unive rs 25 mg 12-14 02-06 ity of tablet 00:00: 00:00 [place] 00 :00 [facility] morpHINE 2020- No 4mg 4 mg, Slow Un you injection 4 12-06 IV Push, ity of mg 00:00: 23:00 ONCE, 1 [place] 00 :00 dose, [facility] 12/05/20 at Branch 1900, STAT dicyclomine 2020- No 20mg 20 mg, Uni vers (BENTYL) 12-06 Intramuscu ity of injection 00:00: 23:00 [place], ONCE, [place] 20 mg 00 :00 1 dose, [facility] 12/05/20 at 1900, Routine iopamidol 2020- No [id number] 120mL 120 mL, Univers (ISOVUE 12-05 Intravenou ity o f 370-500 mL) 22:30: 21:20 s, ONCE, 1 [place] injection 00 :00 dose, Mon Medic al 120 mL 12/05/20 at [place] 1730, Routine famotidine 2020- No 20mg 20 mg, Univ ers (PEPCID 12-05 Slow IV ity of (PF)) 22:15: 22:14 Push, [place] injection 00 :00 ONCE, 1 Medical 20 mg dose, [facility] 12/05/20 at 1715, [place] maalox:diph 2020- No 15mL 15 mL, Uni vers enhydrAMINE 12-05 Oral, ity of :lidocaine 22:15: 22:13 ONCE, 1 [place] 2 % viscous 00 :00 dose, Mon Med ical 1:1:1 12/05/20 at [place] (FIRST-MOUT 1715, HWASH BLM) Routine oral suspension 15 mL NaCl 0.9% 2020- No 1000mL at 999 Uni vers (NS) bolus 12-05 mL/hr, ity of infusion 22:00: 23:51 1,000 mL, [place] 1,000 mL 00 :00 IV Medical Piggyback, [place] ONCE, 1 dose, [facility] 12/05/20 at 1700, STAT ondansetron 2020- No [...] 00 :00 dose, Mon Medical 12/05/20 at [place] 1700, STAT ondansetron Yes [id number] 4mg Take 1 Univers 4 mg 8-23 tablet by ity of disintegrat 00:00: mouth [place] ing tablet 00 every 8 Medica l (eight) Branch hours as needed for Nausea and Vomiting (N/V). ondansetron Yes [id number] 4mg Take 1 Univers 4 mg 8-23 tablet by ity of disintegrat 00:00: mouth [place] ing tablet 00 every 8 Medica l (eight) Branch hours as needed for Nausea and Vomiting (N/V). ondansetron 2020-0 Yes [id number] 4mg Take 1 Univers 4 mg 8-23 tablet by ity of disintegrat 00:00: mouth [place] ing tablet 00 every 8 Medica l (eight) Branch hours as needed for Nausea and Vomiting (N/V). ondansetron 2020-0 Yes [id number] 4mg Take 1 Univers 4 mg 8-23 tablet by ity of disintegrat 00:00: mouth [place] ing tablet 00 every 8 Medica l (eight) Branch hours as needed for Nausea and Vomiting (N/V). ondansetron 0 Yes [id number] 4mg Take 1 Univers 4 mg 8-23 tablet by ity of disintegrat 00:00: mouth [place] ing tablet 00 every 8 Medica l (eight) Branch hours as needed for Nausea and Vomiting (N/V). ondansetron 0 Yes [id number] 4mg Take 1 Univers 4 mg 8-23 tablet by ity of disintegrat 00:00: mouth [place] ing tablet 00 every 8 Medica l (eight) Branch hours as needed for Nausea and Vomiting (N/V). ondansetron 0 Yes [id number] 4mg Take 1 Univers 4 mg 8-23 tablet by ity of disintegrat 00:00: mouth [place] ing tablet 00 every 8 Medica l (eight) Branch hours as needed for Nausea and Vomiting (N/V). ondansetron 0 Yes [id number] 4mg Take 1 Univers 4 mg 8-23 tablet by ity of disintegrat 00:00: mouth [place] ing tablet 00 every 8 Medica l (eight) Branch hours as needed for Nausea and Vomiting (N/V). ondansetron 2020-0 Yes [id number] 4mg Take 1 Univers 4 mg 8-23 tablet by ity of disintegrat 00:00: mouth [place] ing tablet 00 every 8 Medica l (eight) Branch hours as needed for Nausea and Vomiting (N/V). ondansetron 2020-0 Yes [id number] 4mg Take 1 Univers 4 mg 8-23 tablet by ity of disintegrat 00:00: mouth [place] ing tablet 00 every 8 Medica l (eight) Branch hours as needed for Nausea and Vomiting (N/V). ondansetron 2020-0 Yes [id number] 4mg Take 1 Univers 4 mg 8-23 tablet by ity of disintegrat 00:00: mouth [place] ing tablet 00 every 8 Medica l (eight) Branch hours as needed for Nausea and Vomiting (N/V). ondansetron 2020-0 Yes [id number] 4mg Take 1 Univers 4 mg 8-23 tablet by ity of disintegrat 00:00: mouth [place] ing tablet 00 every 8 Medica l (eight) Branch hours as needed for Nausea and Vomiting (N/V). ondansetron 2020-0 Yes [id number] 4mg Take 1 Univers 4 mg 8-23 tablet by ity of disintegrat 00:00: mouth [place] ing tablet 00 every 8 Medica l (eight) Branch hours as needed for Nausea and Vomiting (N/V). ondansetron 2020-0 Yes [id number] 4mg Take 1 Univers 4 mg 8-23 tablet by ity of disintegrat 00:00: mouth [place] ing tablet 00 every 8 Medica l (eight) Branch hours as needed for Nausea and Vomiting (N/V). ondansetron 2020-0 Yes [id number] 4mg Take 1 Univers 4 mg 8-23 tablet by ity of disintegrat 00:00: mouth [place] ing tablet 00 every 8 Medica l (eight) Branch hours as needed for Nausea and Vomiting (N/V). ondansetron 2020-0 Yes [id number] 4mg Take 1 Univers 4 mg 8-23 tablet by ity of disintegrat 00:00: mouth [place] ing tablet 00 every 8 Medica l (eight) Branch hours as needed for Nausea and Vomiting (N/V). ondansetron 2020-0 Yes [id number] 4mg Take 1 Univers 4 mg 8-23 tablet by ity of disintegrat 00:00: mouth [place] ing tablet 00 every 8 Medica l (eight) Branch hours as needed for Nausea and Vomiting (N/V). ondansetron 2020-0 Yes [id number] 4mg Take 1 Univers 4 mg 8-23 tablet by ity of disintegrat 00:00: mouth [place] ing tablet 00 every 8 Medica l (eight) Branch hours as needed for Nausea and Vomiting (N/V). ondansetron Yes [id number] 4mg Take 1 Univers 4 mg 8-23 tablet by ity of disintegrat 00:00: mouth [place] ing tablet 00 every 8 Medica l (eight) Branch hours as needed for Nausea and Vomiting (N/V). ondansetron Yes [id number] 4mg Take 1 Univers 4 mg 8-23 tablet by ity of disintegrat 00:00: mouth [place] ing tablet 00 every 8 Medica l (eight) Branch hours as needed for Nausea and Vomiting (N/V). ondansetron Yes [id number] 4mg Take 1 Univers 4 mg 8-23 tablet by ity of disintegrat 00:00: mouth [place] ing tablet 00 every 8 Medica l (eight) Branch hours as needed for Nausea and Vomiting (N/V). ondansetron Yes [id number] 4mg Take 1 Univers 4 mg 8-23 tablet by ity of disintegrat 00:00: mouth [place] ing tablet 00 every 8 Medica l (eight) Branch hours as needed for Nausea and Vomiting (N/V). ondansetron Yes [id number] 4mg Take 1 Univers 4 mg 8-23 tablet by ity of disintegrat 00:00: mouth [place] ing tablet 00 every 8 Medica l (eight) Branch hours as needed for Nausea and Vomiting (N/V). ondansetron Yes [id number] 4mg Take 1 Univers 4 mg 8-23 tablet by ity of disintegrat 00:00: mouth [place] ing tablet 00 every 8 Medica l (eight) Branch hours as needed for Nausea and Vomiting (N/V). ondansetron 2021- No [id number] 4mg Take 1 [facility] 4 mg 8-23 02-06 tablet by ity of disintegrat 00:00: 00:00 [place] tablet 00 :00 every 8 Medica l (eight) Branch hours as needed for Nausea and Vomiting (N/V). dicyclomine 2020- No [id number] 20mg Take 1 Univers 20 mg 8-23 08-31 tablet by ity of tablet 00:00: 04:59 mouth 4 [place] 00 :00 (four) Medical times Branch daily for 7 days. fenofibrate Yes 134mg 134 mg, Un you micronized -01 Oral, ity of (LOFIBRA) 14:00: DAILY, [place] capsule 134 00 First dose Me dical mg on [place] Branch 10/13/20 at 0900, Until Discontinu ed, Routine traZODone 2020-0 Yes 100mg Take 100 Uni vers 100 mg 7-01 mg by ity of tablet 01:44: mouth at [place] [address] bedtime. Medical Branch losartan 2020-0 Yes 100mg [...] by ity of tablet 01:44: mouth at [place] [address] bedtime. Medical Branch losartan 2020-0 Yes 100mg Take 100 Univ ers 100 mg 7-01 mg by ity of tablet 01:44: mouth [place] 06 daily. Medical Branch gabapentin 2020-0 Yes 300mg Take 300 Un you 300 mg 7-01 mg by ity of capsule 01:44: mouth 2 [place] 06 (two) Medical times Branch daily. HYDROcodone Yes 1{tbl} 1 tablet, Univers -acetaminop 10-13 Oral, BID, it y of hen (NORCO 01:00: First dose [place] 5) 5-325 mg 00 on Wed Medica l tablet 1 10/12/20 at [facility] h tablet 1999, Until Discontinu ed, Routine proMETHazin 2020-0 202- No 25mg 25 mg, Uni vers e 10-12 Oral, ity of (PHENERGAN) 17:45: 20:05 ONCE, 1 [place] tablet 25 00 :00 dose, Wed Medic al mg 10/12/20 at Branch 1245, Routine tiZANidine 2020-0 2020- No 4mg 4 mg, Unive rs (ZANAFLEX) 10-1230 Oral, ity of tablet 4 mg 17:45: 20:05 ONCE, 1 [place] 00 :00 dose, Sat10/12/20 at Branch 1245, Routine lipase-prot 2020-0 Yes 3{capsu 3 capsule, Univers ease-amylas 6-30 le} Oral, TID ity of e (CREON) 17:00: MEALS, [place] 12,000-38,0 00 First dose Me dical 00 -60,000 on Sat [place] unit 10/12/20 at capsule 3 1200, capsule Until Discontinu ed, Routine losartan 2020-0 Yes 100mg 100 mg, Unive rs (COZAAR) 6-30 Oral, ity of tablet 100 14:00: DAILY, [place] mg 00 First dose Medical on Sat [place] 10/12/20 at 0900, Until Discontinu ed, Routine ursodioL 0 Yes 250mg 250 mg, Unive rs (EUGENE) 6-30 Oral, BID, ity of tablet 250 13:00: First dose [place] mg 00 on Sat [facility] 10/12/20 at Branch 0800, Until Discontinu ed, Routine heparin 2020-0 Yes 5000U 5,000 Univers (porcine) 6-30 Units, ity of injection 13:00: [place]o [place] 5,000 Units 00 us, Q12H, Med ical First dose Branch on Sat10/12/20 at 0800, Until Discontinu ed, Routine traZODone 0 Yes 100mg 100 mg, Univ ers (DESYREL) 6-30 Oral, QHS, ity of tablet 100 03:00: First dose [place] mg 00 on [facility] 10/11/20 at Branch 2200, Until Discontinu ed, Routine gabapentin 2020-0 Yes 300mg 300 mg, Uni vers (NEURONTIN) 6-30 Oral, BID, it y of capsule 300 03:00: First dose [place] mg 00 on [facility] 10/11/20 at Branch 2200, Until Discontinu ed, Routine ondansetron 2020-0 Yes 4mg 4 mg, Slow Univers (ZOFRAN 6-30 IV Push, ity of (PF)) 02:52: Q6HPRN, [place] injection 4 29 Starting Medi brandy mg [facility] 10/11/20 at 2152, Until Discontinu ed, Routine, Nausea and Vomiting (N/V) HYDROcodone 2020- No 1{tbl} 1 tablet, Univers -acetaminop 6-30 06-30 Oral, ity of hen (NORCO) 02:52: 15:44 Q6HPRN, [place] 10-325 mg 25 :37 Starting Medica l tablet 1 [facility] tablet 10/11/20 at 2152, Until 10/12/20 at 1044, Routine, Pain (scale 7-10) HYDROcodone 2020- No 1{tbl} 1 tablet, Univers -acetaminop 6-30 07-02 Oral, ity of hen (NORCO 02:51: 02:50 Q6HPRN, [place] 5) 5-325 mg 18 :18 Starting Medi brandy tablet 1 [facility] tablet 10/11/20 at 2151, Until [place] 10/13/20 at 2150, Routine, Pain (scale 4-6) ibuprofen Yes 200mg 200 mg, Univ ers (MOTRIN IB) 630 Oral, ity of tablet 200 02:51: Q6HPRN, [place] mg 13 Starting Medical [facility] Branch 10/11/20 at 2151, Until Discontinu ed, Routine, Pain (scale 1-3) morpHINE 2020- No 4mg 4 mg, Slow Un you injection 4 10-12 0630 IV Push, ity of mg 01:15: 00:14 ONCE, 1 [place] 00 :00 dose, [facility] 10/11/20 at Branch 2015, STAT fenofibrate Yes 145mg Take 1 Univers 145 mg 6-30 tablet by ity of tablet 00:00: mouth [place] 00 daily. Medical Branch lipase-prot Yes [id number] 3{capsu Take 3 Univers ease-amylas 6-30 le} capsules ity of e 00:00: by mouth 3 [place] 12,000-38,0 00 (three) Medic al 00 -60,000 times Branch unit daily with capsule meals. ursodioL Yes [id number] 250mg Take 1 Un you 250 mg 6-30 tablet by ity of tablet 00:00: mouth 2 [place] 00 (two) Medical times Branch daily. fenofibrate Yes 145mg Take 1 Univers 145 mg 6-30 tablet by ity of tablet 00:00: mouth [place] 00 daily. Medical Branch lipase-prot 2020-0 Yes [id number] 3{capsu Take 3 Univers ease-amylas 6-30 le} capsules ity of e 00:00: by mouth 3 [place] 12,000-38,0 00 (three) Medic al 00 -60,000 times Branch unit daily with capsule meals. ursodioL 2020-0 Yes [id number] 250mg Take 1 Un you 250 mg 6-30 tablet by ity of tablet 00:00: mouth 2 [place] 00 (two) Medical times Branch daily. fenofibrate 2020-0 Yes [id number] 145mg Take 1 Univers 145 mg 6-30 tablet by ity of tablet 00:00: mouth [place] 00 daily. Medical Branch lipase-prot 2020-0 Yes [id number] 3{capsu Take 3 Univers ease-amylas 6-30 le} capsules ity of e 00:00: by mouth 3 [place] 12,000-38,0 00 (three) Medic al 00 -60,000 times Branch unit daily with capsule meals. ursodioL 2020-0 Yes [id number] 250mg Take 1 Un you 250 mg 6-30 tablet by ity of tablet 00:00: mouth 2 00 (two) Medical times Branch daily. fenofibrate 2020-0 Yes [id number] 145mg Take 1 Univers 145 mg 6-30 tablet by ity of tablet 00:00: mouth [place] 00 daily. Medical Branch lipase-prot 2020-0 Yes [id number] 3{capsu Take 3 Univers ease-amylas 6-30 le} capsules ity of e 00:00: by mouth 3 [place] 12,000-38,0 00 (three) Medic al 00 -60,000 times Branch unit daily with capsule meals. ursodioL 2020-0 Yes [id number] 250mg Take 1 Un you 250 mg 6-30 tablet by ity of tablet 00:00: mouth 2 [place] 00 (two) Medical times Branch daily. fenofibrate 2020-0 Yes [id number] 145mg Take 1 Univers 145 mg 6-30 tablet by ity of tablet 00:00: mouth [place] 00 daily. Medical Branch lipase-prot 2020-0 Yes [id number] 3{capsu Take 3 Univers ease-amylas 6-30 le} capsules ity of e 00:00: by mouth 3 [place] 12,000-38,0 00 (three) Medic al 00 -60,000 times Branch unit daily with capsule meals. ursodioL 2020-0 Yes [id number] 250mg Take 1 Un you 250 mg 6-30 tablet by ity of tablet 00:00: mouth 2 00 (two) Medical times Branch daily. fenofibrate 2020-0 Yes [id number] 145mg Take 1 Univers 145 mg 6-30 tablet by ity of tablet 00:00: mouth [place] 00 daily. Medical Branch lipase-prot 2020-0 Yes [id number] 3{capsu Take 3 Univers ease-amylas 6-30 le} capsules ity of e 00:00: by mouth 3 [place] 12,000-38,0 00 (three) Medic al 00 -60,000 times Branch unit daily with capsule meals. ursodioL 2020-0 Yes [id number] 250mg Take 1 Un you 250 mg 6-30 tablet by ity of tablet 00:00: mouth 2 00 (two) Medical times Branch daily. fenofibrate 2020-0 Yes [id number] 145mg Take 1 Univers 145 mg 6-30 tablet by ity of tablet 00:00: mouth [place] 00 daily. Medical Branch lipase-prot 2020-0 Yes [id number] 3{capsu Take 3 Univers ease-amylas 6-30 le} capsules ity of e 00:00: by mouth 3 [place] 12,000-38,0 00 (three) Medic al 00 -60,000 times Branch unit daily with capsule meals. ursodioL 2020-0 Yes [id number] 250mg Take 1 Un you 250 mg 6-30 tablet by ity of tablet 00:00: mouth 2 [place] 00 (two) Medical times Branch daily. fenofibrate 2020-0 Yes [id number] 145mg Take 1 Univers 145 mg 6-30 tablet by ity of tablet 00:00: mouth [place] 00 daily. Medical Branch lipase-prot 2020-0 Yes [id number] 3{capsu Take 3 Univers ease-amylas 6-30 le} capsules ity of e 00:00: by mouth 3 [place] 12,000-38,0 00 (three) Medic al 00 -60,000 times Branch unit daily with capsule meals. ursodioL 2020-0 Yes [id number] 250mg Take 1 Un you 250 mg 6-30 tablet by ity of tablet 00:00: mouth 2 00 (two) Medical times Branch daily. fenofibrate 2020-0 Yes [id number] 145mg Take 1 Univers 145 mg 6-30 tablet by ity of tablet 00:00: mouth [place] 00 daily. Medical Branch lipase-prot 2020-0 Yes [id number] 3{capsu Take 3 Univers ease-amylas 6-30 le} capsules ity of e 00:00: by mouth 3 [place] 12,000-38,0 00 (three) Medic al 00 -60,000 times Branch unit daily with capsule meals. ursodioL 2020-0 Yes [id number] 250mg Take 1 Un you 250 mg 6-30 tablet by ity of tablet 00:00: mouth 2 00 (two) Medical times Branch daily. fenofibrate 2020-0 Yes [id number] 145mg Take 1 Univers 145 mg 6-30 tablet by ity of tablet 00:00: mouth 00 daily. Medical Branch lipase-prot 2020-0 Yes [id number] 3{capsu Take 3 Univers ease-amylas 6-30 le} capsules ity of e 00:00: by mouth 3 [place] 12,000-38,0 00 (three) Medic al 00 -60,000 times Branch unit daily with capsule meals. ursodioL 2020-0 Yes [id number] 250mg Take 1 Un you 250 mg 6-30 tablet by ity of tablet 00:00: mouth 2 (two) Medical times Branch daily. fenofibrate 2020-0 Yes [id number] 145mg Take 1 Univers 145 mg 6-30 tablet by ity of tablet 00:00: mouth 00 daily. Medical Branch lipase-prot 2020-0 Yes [id number] 3{capsu Take 3 [facility] ease-amylas 6-30 le} capsules ity of e 00:00: by mouth 3 [place] 12,000-38,0 00 (three) Medic al 00 -60,000 times Branch unit daily with capsule meals. ursodioL 2020-0 Yes [id number] 250mg Take 1 Un you 250 mg 6-30 tablet by ity of tablet 00:00: mouth 2 00 (two) Medical times Branch daily. fenofibrate 2020-0 Yes [id number] 145mg Take 1 Univers 145 mg 6-30 tablet by ity of tablet 00:00: mouth [place] 00 daily. Medical Branch lipase-prot 2020-0 Yes [id number] 3{capsu Take 3 Univers ease-amylas 6-30 le} capsules ity of e 00:00: by mouth 3 [place] 12,000-38,0 00 (three) Medic al 00 -60,000 times Branch unit daily with capsule meals. ursodioL 2020-0 Yes [id number] 250mg Take 1 Un you 250 mg 6-30 tablet by ity of tablet 00:00: mouth 2 [place] 00 (two) Medical times Branch daily. fenofibrate 2020-0 Yes [id number] 145mg Take 1 Univers 145 mg 6-30 tablet by ity of tablet 00:00: mouth [place] 00 daily. Medical Branch lipase-prot 2020-0 Yes [id number] 3{capsu Take 3 [facility] ease-amylas 6-30 le} capsules ity of e 00:00: by mouth 3 [place] 12,000-38,0 00 (three) Medic al 00 -60,000 times Branch unit daily with capsule meals. ursodioL 2020-0 Yes [id number] 250mg Take 1 Un you 250 mg 6-30 tablet by ity of tablet 00:00: mouth 2 00 (two) Medical times Branch daily. fenofibrate 2020-0 Yes [id number] 145mg Take 1 Univers 145 mg 6-30 tablet by ity of tablet 00:00: mouth [place] 00 daily. Medical Branch lipase-prot 2020-0 Yes [id number] 3{capsu Take 3 [facility] ease-amylas 6-30 le} capsules ity of e 00:00: by mouth 3 [place] 12,000-38,0 00 (three) Medic al 00 -60,000 times Branch unit daily with capsule meals. ursodioL 2020-0 Yes [id number] 250mg Take 1 Un you 250 mg 6-30 tablet by ity of tablet 00:00: mouth 2 00 (two) Medical times Branch daily. fenofibrate 202-0 Yes [id number] 145mg Take 1 Univers 145 mg 6-30 tablet by ity of tablet 00:00: mouth [place] 00 daily. Medical Branch lipase-prot 2020-0 Yes [id number] 3{capsu Take 3 [facility] ease-amylas 6-30 le} capsules ity of e 00:00: by mouth 3 [place] 12,000-38,0 00 (three) Medic al 00 -60,000 times Branch unit daily with capsule meals. ursodioL 2020-0 Yes [id number] 250mg Take 1 Un you 250 mg 6-30 tablet by ity of tablet 00:00: mouth 2 [place] 00 (two) Medical times Branch daily. fenofibrate 2020-0 Yes [id number] 145mg Take 1 Univers 145 mg 6-30 tablet by ity of tablet 00:00: mouth [place] 00 daily. Medical Branch lipase-prot 2020-0 Yes [id number] 3{capsu Take 3 [facility] ease-amylas 6-30 le} capsules ity of e 00:00: by mouth 3 [place] 12,000-38,0 00 (three) Medic al 00 -60,000 times Branch unit daily with capsule meals. ursodioL 2020-0 Yes [id number] 250mg Take 1 Un you 250 mg 6-30 tablet by ity of tablet 00:00: mouth 2 00 (two) Medical times Branch daily. fenofibrate 2020-0 Yes [id number] 145mg Take 1 Univers 145 mg 6-30 tablet by ity of tablet 00:00: mouth [place] 00 daily. Medical Branch lipase-prot 2020-0 Yes [id number] 3{capsu Take 3 [facility] ease-amylas 6-30 le} capsules ity of e 00:00: by mouth 3 [place] 12,000-38,0 00 (three) Medic al 00 -60,000 times Branch unit daily with capsule meals. ursodioL 2020-0 Yes [id number] 250mg Take 1 Un you 250 mg 6-30 tablet by ity of tablet 00:00: mouth 2 [place] 00 (two) Medical times Branch daily. fenofibrate 2020-0 Yes [id number] 145mg Take 1 Univers 145 mg 6-30 tablet by ity of tablet 00:00: mouth [place] 00 daily. Medical Branch lipase-prot 2020-0 Yes [id number] 3{capsu Take 3 [facility] ease-amylas 6-30 le} capsules ity of e 00:00: by mouth 3 [place] 12,000-38,0 00 (three) Medic al 00 -60,000 times Branch unit daily with capsule meals. ursodioL 2020-0 Yes [id number] 250mg Take 1 Un you 250 mg 6-30 tablet by ity of tablet 00:00: mouth 2 (two) Medical times Branch daily. fenofibrate 2020-0 Yes [id number] 145mg Take 1 Univers 145 mg 6-30 tablet by ity of tablet 00:00: mouth [place] 00 daily. Medical Branch lipase-prot 2020-0 Yes [id number] 3{capsu Take 3 [facility] ease-amylas 6-30 le} capsules ity of e 00:00: by mouth 3 [place] 12,000-38,0 00 (three) Medic al 00 -60,000 times Branch unit daily with capsule meals. ursodioL 202-0 Yes [id number] 250mg Take 1 Un you 250 mg 6-30 tablet by ity of tablet 00:00: mouth 2 (two) Medical times Branch daily. fenofibrate 2020-0 Yes [id number] 145mg Take 1 Univers 145 mg 6-30 tablet by ity of tablet 00:00: mouth [place] 00 daily. Medical Branch lipase-prot 2020-0 Yes [id number] 3{capsu Take 3 [facility] ease-amylas 6-30 le} capsules ity of e 00:00: by mouth 3 [place] 12,000-38,0 00 (three) Medic al 00 -60,000 times Branch unit daily with capsule meals. ursodioL 2020-0 Yes [id number] 250mg Take 1 Un you 250 mg 6-30 tablet by ity of tablet 00:00: mouth 2 (two) Medical times Branch daily. fenofibrate 2020-0 Yes [id number] 145mg Take 1 [facility] 145 mg 6-30 tablet by ity of tablet 00:00: mouth [place] 00 daily. Medical Branch fenofibrate 2020-0 Yes [id number] 145mg Take 1 [facility] 145 mg 6-30 tablet by ity of tablet 00:00: mouth [place] 00 daily. Medical Branch lipase-prot 2020-0 Yes [id number] 3{capsu Take 3 [facility] ease-amylas 6-30 le} capsules ity of e 00:00: by mouth 3 [place] 12,000-38,0 00 (three) Medic al 00 -60,000 times Branch unit daily with capsule meals. ursodioL 202-0 Yes [id number] 250mg Take 1 Un you 250 mg 6-30 tablet by ity of tablet 00:00: mouth 2 (two) Medical times Branch daily. lipase-prot 2020-0 Yes [id number] 3{capsu Take 3 [facility] ease-amylas 6-30 le} capsules ity of e 00:00: by mouth 3 [place] 12,000-38,0 00 (three) Medic al 00 -60,000 times Branch unit daily with capsule meals. ursodioL 2020-0 Yes [id number] 250mg Take 1 Un you 250 mg 6-30 tablet by ity of tablet 00:00: mouth 2 [place] 00 (two) Medical times Branch daily. fenofibrate 2020-0 Yes [id number] 145mg Take 1 [facility] 145 mg 6-30 tablet by ity of tablet 00:00: mouth [place] 00 daily. Medical Branch lipase-prot 2020-0 Yes [id number] 3{capsu Take 3 [facility] ease-amylas 6-30 le} capsules ity of e 00:00: by mouth 3 [place] 12,000-38,0 00 (three) Medic al 00 -60,000 times Branch unit daily with capsule meals. ursodioL 2020-0 Yes [id number] 250mg Take 1 Un you 250 mg 6-30 tablet by ity of tablet 00:00: mouth 2 00 (two) Medical times Branch daily. fenofibrate 2020-0 Yes [id number] 145mg Take 1 [facility] 145 mg 6-30 tablet by ity of tablet 00:00: mouth [place] 00 daily. Medical Branch lipase-prot 2020-0 Yes [id number] 3{capsu Take 3 [facility] ease-amylas 6-30 le} capsules ity of e 00:00: by mouth 3 [place] 12,000-38,0 00 (three) Medic al 00 -60,000 times Branch unit daily with capsule meals. ursodioL 2020-0 Yes [id number] 250mg Take 1 Un you 250 mg 6-30 tablet by ity of tablet 00:00: mouth 2 00 (two) Medical times Branch daily. fenofibrate 2020-0 Yes [id number] 145mg Take 1 [facility] 145 mg 6-30 tablet by ity of tablet 00:00: mouth [place] 00 daily. Medical Branch fenofibrate 2020-0 Yes [id number] 145mg Take 1 [facility] 145 mg 6-30 tablet by ity of tablet 00:00: mouth [place] 00 daily. Medical Branch fenofibrate 2020-0 Yes [id number] 145mg Take 1 [facility] 145 mg 6-30 tablet by ity of tablet 00:00: mouth [place] 00 daily. Medical Branch lipase-prot Yes [id number] 3{capsu Take 3 [facility] ease-amylas 6-30 le} capsules ity of e 00:00: by mouth 3 [place] 12,000-38,0 00 (three) Medic al 00 -60,000 times Branch unit daily with capsule meals. ursodioL Yes 250mg Take 1 Un you 250 mg 6-30 tablet by ity of tablet 00:00: mouth 2 [place] 00 (two) Medical times Branch daily. fenofibrate 2020- Yes [id number] 145mg Take 1 [facility] 145 mg 6-30 tablet by ity of tablet 00:00: mouth [place] 00 daily. Medical Branch fenofibrate Yes [id number] 145mg Take 1 [facility] 145 mg 6-30 tablet by ity of tablet 00:00: mouth [place] 00 daily. Medical Branch fenofibrate Yes [id number] 145mg Take 1 [facility] 145 mg 6-30 tablet by ity of tablet 00:00: mouth [place] 00 daily. Medical Branch fenofibrate Yes [id number] 145mg Take 1 [facility] 145 mg 6-30 tablet by ity of tablet 00:00: mouth [place] 00 daily. Medical Branch fenofibrate Yes [id number] 145mg Take 1 [facility] 145 mg 6-30 tablet by ity of tablet 00:00: mouth [place] 00 daily. Medical Branch fenofibrate 2020-0 Yes [id number] 145mg Take 1 [facility] 145 mg 6-30 tablet by ity of tablet 00:00: mouth [place] 00 daily. Medical Branch fenofibrate 2020- Yes [id number] 145mg Take 1 [facility] 145 mg 6-30 tablet by ity of tablet 00:00: mouth [place] 00 daily. Medical Branch fenofibrate 2020-0 Yes [id number] 145mg Take 1 [facility] 145 mg 6-30 tablet by ity of tablet 00:00: mouth [place] 00 daily. Medical Branch fenofibrate 0 Yes [id number] 145mg Take 1 [facility] 145 mg 6-30 tablet by ity of tablet 00:00: mouth [place] 00 daily. Medical Branch fenofibrate 2020-0 Yes [id number] 145mg Take 1 [facility] 145 mg 6-30 tablet by ity of tablet 00:00: mouth [place] 00 daily. Medical Branch fenofibrate Yes [id number] 145mg Take 1 [facility] 145 mg 6-30 tablet by ity of tablet 00:00: mouth [place] 00 daily. Medical Branch fenofibrate 0 Yes [id number] 145mg Take 1 [facility] 145 mg 6-30 tablet by ity of tablet 00:00: mouth [place] 00 daily. Medical Branch fenofibrate 0 Yes [id number] 145mg Take 1 [facility] 145 mg 6-30 tablet by ity of tablet 00:00: mouth [place] 00 daily. [facility] Branch fenofibrate Yes [id number] 145mg Take 1 [facility] 145 mg 6-30 tablet by ity of tablet 00:00: mouth [place] 00 daily. [facility] Branch fenofibrate Yes [id number] 145mg Take 1 [facility] 145 mg 6-30 tablet by ity of tablet 00:00: mouth [place] 00 daily. [facility] Branch fenofibrate Yes [id number] 145mg Take 1 [facility] 145 mg 6-30 tablet by ity of tablet 00:00: mouth [place] 00 daily. [facility] Branch fenofibrate Yes [id number] 145mg Take 1 [facility] 145 mg 6-30 tablet by ity of tablet 00:00: mouth [place] 00 daily. [facility] Branch fenofibrate Yes [id number] 145mg Take 1 [facility] 145 mg 6-30 tablet by ity of tablet 00:00: mouth [place] 00 daily. [facility] Branch fenofibrate Yes [id number] 145mg Take 1 [facility] 145 mg 6-30 tablet by ity of tablet 00:00: mouth [place] 00 daily. Medical Branch lipase-prot 2021- No [id number] 3{capsu Take 3 [facility] ease-amylas 6-30 02-06 le} capsules ity of e 00:00: 00:00 by mouth 3 [place] 12,000-38,0 00 :00 (three) Medic al 00 -60,000 times Branch unit daily with capsule meals. ursodioL 2021- No [id number] 250mg Take 1 U nivers 250 mg 6-30 02-06 tablet by ity of tablet 00:00: 00:00 mouth 2 [place] 00 :00 (two) Medical times Branch daily. morpHINE 2021-0 2021- No 6mg 6 mg, Slow Un you injection 6 10-11 IV Push, ity of mg 22:15: 21:09 ONCE, 1 [place] 00 :00 dose, [facility] 10/11/20 at Branch 1715, STAT FENTanyl PF 2020-0 202- No 100ug 100 mcg, Univers (SUBLIMAZE 10-11 Slow IV ity o f (PF)) 20:00: 18:53 Push, [place] injection 00 :00 ONCE, 1 Medical 100 mcg dose, [facility] 10/11/20 at 1500, Routine ondansetron 2020- No 4mg 4 mg, Slow Univers (ZOFRAN 10-11 IV Push, ity of (PF)) 20:00: 18:54 ONCE, 1 [place] injection 4 00 :00 dose, [facility] Med ical mg 10/11/20 at Branch 1500, [place] morpHINE 2020-0 202- No 6mg 6 mg, Slow Un you injection 6 10-11 IV Push, ity of mg 16:45: 15:42 ONCE, 1 [place] 00 :00 dose, [facility] 10/11/20 at Branch 1145, STAT FENTanyl PF 2020-0 2020- No 100ug 100 mcg, Univers (SUBLIMAZE 10-11 Slow IV ity o f (PF)) 16:15: 15:06 Push, [place] injection 00 :00 ONCE, 1 Medical 100 mcg dose, [facility] 10/11/20 at 1115, Routine metoclopram 2020-0 2020- No 10mg 10 mg, Uni vers selena HCl 10-11 Slow IV ity of (REGLAN) 16:15: 15:06 Push, [place] injection 00 :00 ONCE, 1 Medical 10 mg dose, [facility] 10/11/20 at 1115, [place] morpHINE 2020-0 202- No 4mg 4 mg, Slow Un you injection 4 10-05 IV Push, ity of mg 01:15: 00:15 ONCE, 1 [place] 00 :00 dose, [facility] 10/04/20 at Branch 2015, STAT ondansetron 2020-0 202- No 4mg 4 mg, Slow Univers (ZOFRAN [...] dose, 10/04/20 at 1800, [place] promethazin Yes [id number] 50mg Insert 1 [facility] e 50 mg 6-22 Suppositor ity of suppository 00:00: y [place] 00 rectum Medical every 6 Branch (six) hours as needed for Nausea and Vomiting (N/V). ondansetron Yes [id number] 4mg Take 1 [facility] (ZOFRAN 6-22 tablet by ity of ODT) 4 mg 00:00: mouth [place] disintegrat 00 every 8 Medic al ing tablet (eight) Branch hours as needed for Nausea and Vomiting (N/V). promethazin Yes [id number] 50mg Insert 1 [facility] e 50 mg 6-22 Suppositor ity of suppository 00:00: y [place] 00 rectum Medical every 6 Branch (six) hours as needed for Nausea and Vomiting (N/V). promethazin Yes [id number] 50mg Insert 1 [facility] e 50 mg 6-22 Suppositor ity of suppository 00:00: y into [place] 00 rectum Medical every 6 Branch (six) hours as needed for Nausea and Vomiting (N/V). promethazin 0 Yes [id number] 50mg Insert 1 Univers e 50 mg 6-22 Suppositor ity of suppository 00:00: y [place] 00 rectum Medical every 6 Branch (six) hours as needed for Nausea and Vomiting (N/V). promethazin Yes [id number] 50mg Insert 1 [facility] e 50 mg 6-22 Suppositor ity of suppository 00:00: y into [place] 00 rectum Medical every 6 Branch (six) hours as needed for Nausea and Vomiting (N/V). promethazin Yes [id number] 50mg Insert 1 [facility] e 50 mg 6-22 Suppositor ity of suppository 00:00: y into [place] 00 rectum Medical every 6 Branch (six) hours as needed for Nausea and Vomiting (N/V). promethazin Yes [id number] 50mg Insert 1 [facility] e 50 mg 6-22 Suppositor ity of suppository 00:00: y into [place] 00 rectum Medical every 6 Branch (six) hours as needed for Nausea and Vomiting (N/V). promethazin Yes [id number] 50mg Insert 1 [facility] e 50 mg 6-22 Suppositor ity of suppository 00:00: y into [place] 00 rectum Medical every 6 Branch (six) hours as needed for Nausea and Vomiting (N/V). promethazin Yes [id number] 50mg Insert 1 [facility] e 50 mg 6-22 Suppositor ity of suppository 00:00: y into [place] 00 rectum Medical every 6 Branch (six) hours as needed for Nausea and Vomiting (N/V). promethazin Yes [id number] 50mg Insert 1 [facility] e 50 mg 6-22 Suppositor ity of suppository 00:00: y into [place] 00 rectum Medical every 6 Branch (six) hours as needed for Nausea and Vomiting (N/V). promethazin Yes [id number] 50mg Insert 1 [facility] e 50 mg 6-22 Suppositor ity of suppository 00:00: y into [place] 00 rectum Medical every 6 Branch (six) hours as needed for Nausea and Vomiting (N/V). promethazin Yes [id number] 50mg Insert 1 [facility] e 50 mg 6-22 Suppositor ity of suppository 00:00: y into [place] 00 rectum Medical every 6 Branch (six) hours as needed for Nausea and Vomiting (N/V). promethazin Yes [id number] 50mg Insert 1 [facility] e 50 mg 6-22 Suppositor ity of suppository 00:00: y into [place] 00 rectum Medical every 6 Branch (six) hours as needed for Nausea and Vomiting (N/V). promethazin Yes [id number] 50mg Insert 1 [facility] e 50 mg 6-22 Suppositor ity of suppository 00:00: y into [place] 00 rectum Medical every 6 Branch (six) hours as needed for Nausea and Vomiting (N/V). promethazin Yes [id number] 50mg Insert 1 [facility] e 50 mg 6-22 Suppositor ity of suppository 00:00: y into [place] 00 rectum Medical every 6 Branch (six) hours as needed for Nausea and Vomiting (N/V). promethazin Yes [id number] 50mg Insert 1 [facility] e 50 mg 6-22 Suppositor ity of suppository 00:00: y into [place] 00 rectum Medical every 6 Branch (six) hours as needed for Nausea and Vomiting (N/V). promethazin Yes [id number] 50mg Insert 1 [facility] e 50 mg 6-22 Suppositor ity of suppository 00:00: y into [place] 00 rectum Medical every 6 Branch (six) hours as needed for Nausea and Vomiting (N/V). promethazin Yes [id number] 50mg Insert 1 [facility] e 50 mg 6-22 Suppositor ity of suppository 00:00: y into [place] 00 rectum Medical every 6 Branch (six) hours as needed for Nausea and Vomiting (N/V). promethazin Yes [id number] 50mg Insert 1 [facility] e 50 mg 6-22 Suppositor ity of suppository 00:00: y into [place] 00 rectum Medical every 6 Branch (six) hours as needed for Nausea and Vomiting (N/V). promethazin Yes [id number] 50mg Insert 1 [facility] e 50 mg 6-22 Suppositor ity of suppository 00:00: y into [place] 00 rectum Medical every 6 Branch (six) hours as needed for Nausea and Vomiting (N/V). promethazin Yes [id number] 50mg Insert 1 [facility] e 50 mg -22 Suppositor ity of suppository 00:00: y into [place] 00 rectum Medical every 6 Branch (six) hours as needed for Nausea and Vomiting (N/V). promethazin 2021- No [id number] 50mg Insert 1 Univers e 50 mg -04-15 Suppositor ity o f suppository 00:00: 00:00 y into [place] 00 :00 rectum Medical every 6 Branch (six) hours as needed for Nausea and Vomiting (N/V). ondansetron 2020- No [id number] 4mg Take 1 [facility] (ZOFRAN 10-0430 tablet by ity of ODT) 4 mg 00:00: 00:00 mouth [place] disintegrat 00 :00 every 8 Medic al ing tablet (eight) Branch hours as needed for Nausea and Vomiting (N/V). Gabapentin Gabapentin 2020-0 No 1{capsu TID Gabapentin 300 MG 300 MG 6-04 le} 300 MG 00:00: 00 Gabapentin Gabapentin 2021-0 No 1{capsu TID Gabapentin 300 MG 300 MG 6-04 le} 300 MG 00:00: 00 Gabapentin Gabapentin 2021-0 No 1{capsu TID Gabapentin 300 MG 300 MG 6-04 le} 300 MG 00:00: 00 Gabapentin Gabapentin 2021-0 No 1{capsu TID Gabapentin 300 MG 300 MG 6-04 le} 300 MG 00:00: 00 Gabapentin Gabapentin 2021-0 No 1{capsu TID Gabapentin 300 MG 300 MG 6-04 le} 300 MG 00:00: 00 Gabapentin Gabapentin 2021-0 No 1{capsu TID Gabapentin 300 MG 300 MG 6-04 le} 300 MG 00:00: 00 Gabapentin Gabapentin 2021-0 No 1{capsu TID Gabapentin 300 MG 300 MG 6-04 le} 300 MG 00:00: 00 Gabapentin Gabapentin 2021-0 No 1{capsu TID Gabapentin 300 MG 300 MG 6-04 le} 300 MG 00:00: 00 Gabapentin Gabapentin 2021-0 No 1{capsu TID Gabapentin 300 MG 300 MG 6-04 le} 300 MG 00:00: 00 Gabapentin Gabapentin 2021-0 No 1{capsu TID Gabapentin 300 MG 300 MG 6-04 le} 300 MG 00:00: 00 Gabapentin Gabapentin No 1{capsu TID Gabapentin 300 MG 300 MG 6-04 le} 300 MG 00:00: 00 losartan Yes TAKE [address] [facility] (COZAAR) 5-28 TABLET BY [facility] 100 MG 13:24: MOUTH Medical tablet 24 EVERY DAY Center diazePAM Yes 2mg Take [address] [facility] (VALIUM) 2 5-28 by mouth 2 [facility] MG tablet 13:24: (two) Medical 24 times Center daily as needed for Anxiety. diazePAM Yes 2mg Take 2 mg [facility] [...] MOUTH Medical tablet 24 EVERY DAY Center pancrelipas 2021- No [id number]{ Take [address] [facility], 5-28 05-28 lipase} capsules [facility] Lip-Prot-Am 00:00: 23:59 (72,000 Me dical yl, (CREON) 00 :00 units of Cent er 24,000-76,0 lipase 00 -120,000 total) by unit CpDR mouth 3 capsule (three) times daily with meals. ursodioL 2021- No 500mg Q.5D Take 1 [facility] (ACTIGALL[facility] 5-28 05-28 tablet [facility] 500 MG 00:00: 23:59 (500 mg Medical tablet 00 :00 total) by Center mouth 2 (two) times daily. pancrelipas 2021- No [id number]{ Take [address] [facility], 5-28 05-28 lipase} capsules [facility] Lip-Prot-Am 00:00: 23:59 (72,000 [...] 2 (two) times daily. pancrelipas 2021- No [id number]{ Take [address] [facility], 09-09 lipase} [...] Fri Med ical ing tablet 08/05/20 at [facility] 4 mg 0930, Routine tiZANidine 2020-0 Yes 2mg Q.5D Take [address] [facility] [address] [facility] (ZANAFLEX) 4-19 by mouth 2 [facility] [facility] 2 MG tablet 00:00: (two) Medic al 00 times Center daily. traZODone 2020-0 Yes 100mg QD Take [address] [facility] (DESYREL) 4-19 mg by [facility] 100 MG 00:00: mouth Medical tablet 00 nightly. [place] tiZANidine 2020-0 Yes 2mg Q.5D Take [address] (ZANAFLEX) 4-19 by mouth 2 [facility] 2 MG tablet 00:00: (two) Medic al 00 times Center daily. traZODone 2020-0 Yes 100mg QD Take [address] [facility] (DESYREL) 4-19 mg by [facility] 100 MG 00:00: mouth Medical tablet 00 nightly. [place] tiZANidine 2020-0 Yes 2mg Q.5D Take [address] [facility] [address] [facility] (ZANAFLEX) 4-19 by mouth 2 [place] 2 MG tablet 00:00: (two) Medic al 00 times Center daily. traZODone 2020-0 Yes 100mg QD Take [address] [facility] (DESYREL) 4-19 mg by [facility] 100 MG 00:00: mouth Medical tablet 00 nightly. [place] traZODone 2020-0 Yes 100mg Take 100 Uni vers 100 mg 4-05 mg by ity of tablet 13:30: mouth at [place] [address] bedtime. [facility] Branch traZODone 2020-0 Yes 100mg Take 100 Uni vers 100 mg 4-05 mg by ity of tablet 13:30: mouth at [place] [address] bedtime. [facility] Branch traZODone 2020-0 Yes 100mg Take 100 Uni vers 100 mg 4-05 mg by ity of tablet 13:30: mouth at [place] [address] bedtime. [facility] Branch triamcinolo 2020-0 Yes PRN, Univer s ne 4-05 Starting ity of acetonide 12:07: 07/18/20 [place] (KENALOG[place] 00 at 0707, Medica l injection Until Branch Discontinu ed, Routine, Intra-op iohexoL Yes PRN, Univers (OMNIPAQUE 4-05 Starting ity o f 300-50 mL)) 12:07: 07/18/20 [place] injection 00 at 0707, Medica l Until Branch Discontinu ed, Routine, Intra-op lidocaine Yes PRN, Univers 1% 4-05 Starting ity of (XYLOCAINE) 12:07: 07/18/20 [place] 10 mg/mL (1 00 at 0707, Medi brandy %) Until Branch injection Discontinu ed, Routine, Intra-op triamcinolo 2020- No PRN, Unive rs ne 07-18-05 Starting ity of acetonide 12:07: 15:30 07/18/20 [place] (KENALOG) 00 :22 at 0707, Medica l injection Until Mon Bran h 07/18/20 at 1030, Routine, Intra-op iohexoL [...] injection 07/18/20 at 1030, Routine, Intra-op escitalopra No 20mg Take 20 mg Univers m oxalate 07-1805 by mouth ity o f (LEXAPRO) 11:43: 00:00 at [place] 20 mg 22 :00 bedtime. Medical tablet Branch divalproex 500mg Take 500 U nivers (DEPAKOTE) 07-18-05 mg by ity of 500 mg EC 11:43: 00:00 mouth [place] tablet 22 :00 daily. Medical Branch chlordiazeP No 10mg Take 10 mg Univers OXIDE [...] 04-05 by mouth ity o f (LEXAPRO) 11:: 00:00 at [place] 20 mg 22 :00 [...] as needed Medical for Branch Insomnia. ursodioL 2020-2020- No 500mg Take 500 Uni vers 500 [...] of 400 mg 11:42: 00:00 mouth at [place] tablet 27 :00 bedtime. Medical Branch tiZANidine 2020- No 4mg Take 4 mg U nivers 4 mg 4-05 04-05 by mouth 2 ity of capsule 11:42: 00:00 (two) [place] 27 :00 times Medical daily. Branch meloxicam 2020- No 7.5mg Take 7.5 Un you 7.5 mg 4-05 04-05 mg by ity of tablet 11:42: 00:00 mouth [place] 27 :00 daily. Medical Branch ARIPiprazol 2020- No 10mg Take 10 mg Univers e 10 mg 4-05 04-05 by mouth ity of tablet 11:42: 00:00 daily. [place] 27 :00 Medical Branch carvediloL 2020- No 12.5mg Take 12.5 Univers 12.5 mg 4-05 04-05 mg by ity of tablet 11:42: 00:00 mouth 2 [place] 27 :00 (two) Medical times Branch daily with meals. traZODone Yes 100mg Take 100 Uni vers 100 mg 4-05 mg by ity of tablet 11:28: mouth at [place] 50 bedtime. Medical Branch losartan Yes 100mg 100 mg, Unive rs (COZAAR) -26 Oral, ity of tablet 100 14:00: DAILY, [place] mg 00 First dose Medical on Sat [place] 07/08/20 at 0900, Until Discontinu ed, Routine ondansetron 2020- No 4mg 4 mg, Slow Univers (ZOFRAN 07-0826 IV Push, ity of (PF)) 03:15: 02:29 ONCE, 1 [place] injection 4 00 :00 dose, [place] Med ical mg 07/07/20 at Branch 2215, [place] morpHINE 2020- No 4mg 4 mg, Slow Un you injection 4 07-0826 IV Push, ity of mg 03:15: 02:28 ONCE, 1 [place] 00 :00 dose, [facility] 07/07/20 at Branch 2215, STAT morpHINE 2020- No 4mg 4 mg, Slow Un you injection 4 07-08 IV Push, ity of mg 01:45: 01:05 ONCE, 1 [place] 00 :00 dose, [facility] 07/07/20 at Branch 2044, STAT iohexol 2020- No [id number] 120mL 120 mL, Univers (OMNIPAQUE 07-08 Intravenou it y of 350 01:00: 00:55 s, ONCE, 1 [place] BULK-150 00 :00 dose, [facility] Medica l mL) 07/07/20 at Branch injection 1999, 120 mL Routine NaCl 0.9% 2020- No 1000mL at 999 Uni vers (NS) bolus 07-08 mL/hr, ity of infusion 01:00: 02:24 1,000 mL, [place] 1,000 mL 00 :00 IV Medical Infusion, [place] ONCE, 1 dose, [place] 07/07/20 at 1999, STAT ondansetron 2020- No 4mg 4 mg, Slow [facility] (ZOFRAN 07-08 IV Push, ity of (PF)) 01:00: 00:25 ONCE, 1 [place] injection 4 00 :00 dose, [place] Med ical mg 07/07/20 at Branch 1999, [place] ondansetron 2020- Yes [id number] 4mg Take 1 [facility] (ZOFRAN 3-25 tablet by ity of ODT) 4 mg 00:00: mouth [place] disintegrat 00 every 8 Medic al ing tablet (eight) Branch hours as needed for Nausea and Vomiting (N/V). ondansetron 2020-0 Yes [id number] 4mg Take 1 [facility] (ZOFRAN 3-25 tablet by ity of ODT) 4 mg 00:00: mouth [place] disintegrat 00 every 8 Medic al ing tablet (eight) Branch hours as needed for Nausea and Vomiting (N/V). ondansetron 2020-0 Yes [id number] 4mg Take 1 [facility] (ZOFRAN 3-25 tablet by ity of ODT) 4 mg 00:00: mouth [place] disintegrat 00 every 8 Medic al ing tablet (eight) Branch hours as needed for Nausea and Vomiting (N/V). ondansetron 2020-0 Yes [id number] 4mg Take 1 [facility] (ZOFRAN 3-25 tablet by ity of ODT) 4 mg 00:00: mouth [place] disintegrat 00 every 8 Medic al ing tablet (eight) Branch hours as needed for Nausea and Vomiting (N/V). ondansetron 2021-0 Yes [id number] 4mg Take 1 [facility] (ZOFRAN 3-25 tablet by ity of ODT) 4 mg 00:00: mouth [place] disintegrat 00 every 8 Medic al ing tablet (eight) Branch hours as needed for Nausea and Vomiting (N/V). ondansetron 2021-0 Yes [id number] 4mg Take 1 [facility] (ZOFRAN 3-25 tablet by ity of ODT) 4 mg 00:00: mouth [place] disintegrat 00 every 8 Medic al ing tablet (eight) Branch hours as needed for Nausea and Vomiting (N/V). ondansetron 2021-0 Yes [id number] 4mg Take 1 [facility] (ZOFRAN 3-25 tablet by ity of ODT) 4 mg 00:00: mouth [place] disintegrat 00 every 8 Medic al ing tablet (eight) Branch hours as needed for Nausea and Vomiting (N/V). ondansetron 2021-0 Yes [id number] 4mg Take 1 [facility] (ZOFRAN 3-25 tablet by ity of ODT) 4 mg 00:00: mouth [place] disintegrat 00 every 8 Medic al ing tablet (eight) Branch hours as needed for Nausea and Vomiting (N/V). ondansetron 2021-0 Yes [id number] 4mg Take 1 [facility] (ZOFRAN 3-25 tablet by ity of ODT) 4 mg 00:00: mouth [place] disintegrat 00 every 8 Medic al ing tablet (eight) Branch hours as needed for Nausea and Vomiting (N/V). ondansetron 2021-0 Yes [id number] 4mg Take 1 [facility] (ZOFRAN 3-25 tablet by ity of ODT) 4 mg 00:00: mouth [place] disintegrat 00 every 8 Medic al ing tablet (eight) Branch hours as needed for Nausea and Vomiting (N/V). ondansetron 2021-0 Yes [id number] 4mg Take 1 [facility] (ZOFRAN 3-25 tablet by ity of ODT) 4 mg 00:00: mouth [place] disintegrat 00 every 8 Medic al ing tablet (eight) Branch hours as needed for Nausea and Vomiting (N/V). ondansetron 2021-0 Yes [id number] 4mg Take 1 [facility] (ZOFRAN 3-25 tablet by ity of ODT) 4 mg 00:00: mouth [place] disintegrat 00 every 8 Medic al ing tablet (eight) Branch hours as needed for Nausea and Vomiting (N/V). ondansetron 2021-0 Yes [id number] 4mg Take 1 [facility] (ZOFRAN 3-25 tablet by ity of ODT) 4 mg 00:00: mouth [place] disintegrat 00 every 8 Medic al ing tablet (eight) Branch hours as needed for Nausea and Vomiting (N/V). ondansetron 2021-0 Yes [id number] 4mg Take 1 [facility] (ZOFRAN 3-25 tablet by ity of ODT) 4 mg 00:00: mouth [place] disintegrat 00 every 8 Medic al ing tablet (eight) Branch hours as needed for Nausea and Vomiting (N/V). ondansetron 2021-0 Yes [id number] 4mg Take 1 [facility] (ZOFRAN 3-25 tablet by ity of ODT) 4 mg 00:00: mouth [place] disintegrat 00 every 8 Medic al ing tablet (eight) Branch hours as needed for Nausea and Vomiting (N/V). ondansetron 2021-0 Yes [id number] 4mg Take 1 [facility] (ZOFRAN 3-25 tablet by ity of ODT) 4 mg 00:00: mouth [place] disintegrat 00 every 8 Medic al ing tablet (eight) Branch hours as needed for Nausea and Vomiting (N/V). ondansetron 2021-0 Yes [id number] 4mg Take 1 [facility] (ZOFRAN 3-25 tablet by ity of ODT) 4 mg 00:00: mouth [place] disintegrat 00 every 8 Medic al ing tablet (eight) Branch hours as needed for Nausea and Vomiting (N/V). ondansetron 2021-0 Yes [id number] 4mg Take 1 [facility] (ZOFRAN 3-25 tablet by ity of ODT) 4 mg 00:00: mouth [place] disintegrat 00 every 8 Medic al ing tablet (eight) Branch hours as needed for Nausea and Vomiting (N/V). ondansetron 2021-0 Yes [id number] 4mg Take 1 [facility] (ZOFRAN 3-25 tablet by ity of ODT) 4 mg 00:00: mouth [place] disintegrat 00 every 8 Medic al ing tablet (eight) Branch hours as needed for Nausea and Vomiting (N/V). ondansetron 2020- No [id number] 4mg Take 1 [facility] (ZOFRAN 3-25 12-06 [...] 04 (two) Medical times Branch daily. temazepam 2021-0 [...] mouth 2 04 (two) Medical times Branch daily with [...] ity of 1,000 mg in 12:00: Piggyback, [place] NaCl 0.9% 00 Q8H ABX, Medica l (NS) 50 mL First dose Bra kyh MINI-BAG on Sat07/04/20 at 0700, Until Discontinu [...] IV Medical Infusion, Branch CONTINUOUS , Starting 3/8/21 at 1030, Until Discontinu ed, Routine, PACU [...] 3 it y of capsule 16:25: (three) [place] 42 times Medical daily. Branch meloxicam 0 [...] ne 3-08 Starting ity of acetonide 14:10: 06/20/20 [place] (KENALOG[place] 00 at 0810, Medica l injection Until Branch Discontinu ed, Routine, Intra-op iohexoL 0 Yes PRN, Univers (OMNIPAQUE 3-08 Starting ity o f 300-50 mL)) 14:10: 06/20/20 [place] injection 00 at 0810, Medica l Until Branch Discontinu ed, Routine, Intra-op bupivacaine 2020-0 Yes PRN, Univer s (preserv 08 Starting ity of free) 14:10: Sat06/20/20 [place] (SENSORCAIN 00 at 0810, Medi brandy E MPF) 0.25 Until Branch % (2.5 Discontinu mg/mL) ed, injection Routine, Intra-op lidocaine Yes PRN, Univers 1% 06-20 Starting ity of (XYLOCAINE) 14:09: Sat06/20/20 [place] 10 mg/mL (1 00 at 0809, Medi brandy %) Until Branch injection Discontinu ed, Routine, Intra-op propofoL IV 2020- No Intravenou Univers infusion 06-20-08 s, ONCE ity of 14:05: 14:12 INTRA [place] 00 :42 PROCEDURE, Medical Starting Branch [facility] 06/20/20 at 0805, Until Sat06/20/20 at 0812, Routine, Intra-op lactated 2020-0 2020- No IV Univers ringers IV 06-20-08 Infusion, ity of infusion 14:03: 14:12 CONTINUOUS [place] 00 :42 PRN, Medical Starting [facility] 06/20/20 at 0803, Until Sat06/20/20 at 0812, Routine, Intra-op lactated 2020-0 2020- No 1000mL at 42 Unive rs ringers IV 06-20 03-08 mL/hr, ity of infusion 13:00: 13:17 1,000 mL, [place] 1,000 mL 00 :00 IV Medical Infusion, [place] ONCE, 1 dose, [facility] 06/20/20 at 0700, Routine, DSU Pre-op LOSARTAN [...] 3 it y of capsule 12:29: (three) [place] 33 times Medical daily. Branch meloxicam 0 [...] mouth ity of capsule 12:29: at bedtime [place] 33 as needed Medical for Branch [...] [place] 56 times Medical daily. Branch meloxicam 2021-0 Yes 7.5mg Take 7.5 Uni vers 7.5 [...] 3 it y of capsule 16:05: (three) [place] 19 times Medical daily. Branch chlordiazeP 0 Yes 10mg Take 10 mg Univers OXIDE 10 mg 3-05 by mouth 3 it y of capsule 16:05: (three) [place] 19 times Medical daily. Branch chlordiazeP 0 Yes 10mg Take 10 mg [facility] OXIDE 10 mg 3-05 by mouth 3 it y of capsule 16:05: (three) [place] 19 times Medical daily. Branch butalbital- 2020- [...] No 30mg 30 mg, Unive rs (TORADOL) 1-22 01-22 Slow IV ity of injection 22:45: 21:51 Push, [place] 30 mg 00 :00 ONCE, 1 Medical dose, Fri Branch 05/06/20 at 1645, [facility] : EMERGENCY ROOM, NaCl 0.9% 2020- No 1000mL at 999 Uni vers (NS) bolus 05-06 01-23 mL/hr, ity of infusion 21:45: 00:30 1,000 mL, [place] 1,000 mL 00 :00 IV Medical Infusion, Branch ONCE, 1 dose, 05/06/20 at 1545, [place] butalbital- Yes [id number] 1{tbl} Take 1 [facility] acetaminoph 1-22 tablet by ity of en-caff 00:00: mouth [place] 50-325-40 00 every 6 Medical mg tablet (six) Branch hours as needed for Pain (scale 7-10) or Other (headache) . butalbital- Yes [id number] 1{tbl} Take 1 [facility] acetaminoph 1-22 tablet by ity of en-caff 00:00: mouth [place] 50-325-40 00 every 6 Medical mg tablet (six) Branch hours as needed for Pain (scale 7-10) or Other (headache) . butalbital- Yes [id number] 1{tbl} Take 1 [facility] acetaminoph 1-22 tablet by ity of en-caff 00:00: mouth [place] 50-325-40 00 every 6 Medical mg tablet (six) Branch hours as needed for Pain (scale 7-10) or Other (headache) . butalbital- Yes [id number] 1{tbl} Take 1 [facility] acetaminoph 1-22 tablet by ity of en-caff 00:00: mouth [place] 50-325-40 00 every 6 Medical mg tablet (six) Branch hours as needed for Pain (scale 7-10) or Other (headache) . butalbital- Yes [id number] 1{tbl} Take 1 [facility] acetaminoph 1-22 tablet by ity of en-caff 00:00: mouth [place] 50-325-40 00 every 6 Medical mg tablet (six) Branch hours as needed for Pain (scale 7-10) or Other (headache) . butalbital- Yes [id number] 1{tbl} Take 1 [facility] acetaminoph 1-22 tablet by ity of en-caff 00:00: mouth [place] 50-325-40 00 every 6 Medical mg tablet (six) Branch hours as needed for Pain (scale 7-10) or Other (headache) . butalbital- Yes [id number] 1{tbl} Take 1 [facility] acetaminoph 1-22 tablet by ity of en-caff 00:00: mouth [place] 50-325-40 00 every 6 Medical mg tablet (six) Branch hours as needed for Pain (scale 7-10) or Other (headache) . butalbital- Yes [id number] 1{tbl} Take 1 [facility] acetaminoph 1-22 tablet by ity of en-caff 00:00: mouth [place] 50-325-40 00 every 6 Medical mg tablet (six) Branch hours as needed for Pain (scale 7-10) or Other (headache) . butalbital Yes [id number] 1{tbl} Take 1 [facility] acetaminoph 1-22 tablet by ity of en-caff 00:00: mouth [place] 50-325-40 00 every 6 Medical mg tablet (six) Branch hours as needed for Pain (scale 7-10) or Other (headache) . butalbital- Yes [id number] 1{tbl} Take 1 [facility] acetaminoph 1-22 tablet by ity of en-caff 00:00: mouth [place] 50-325-40 00 every 6 Medical mg tablet (six) Branch hours as needed for Pain (scale 7-10) or Other (headache) . butalbital- Yes [id number] 1{tbl} Take 1 [facility] acetaminoph 1-22 tablet by ity of en-caff 00:00: mouth [place] 50-325-40 00 every 6 Medical mg tablet (six) Branch hours as needed for Pain (scale 7-10) or Other (headache) . butalbital- Yes [id number] 1{tbl} Take 1 [facility] acetaminoph 1-22 tablet by ity of en-caff 00:00: mouth [place] 50-325-40 00 every 6 Medical mg tablet (six) Branch hours as needed for Pain (scale 7-10) or Other (headache) . butalbital- Yes [id number] 1{tbl} Take 1 [facility] acetaminoph 1-22 tablet by ity of en-caff 00:00: mouth [place] 50-325-40 00 every 6 Medical mg tablet (six) Branch hours as needed for Pain (scale 7-10) or Other (headache) . butalbital- 2020- No [id number] 1{tbl} Take 1 [facility] acetaminoph 1-22 04-05 tablet by it y of en-caff 00:00: 00:00 mouth [place] 50-325-40 00 :00 every 6 Medical mg tablet (six) Branch hours as needed for Pain (scale 7-10) or Other (headache) . butalbital- 2020- No [id number] 1{tbl} Take 1 [facility] acetaminoph 1-22 04-05 [...] s: acute pain erythromyci 2019-04 2020- No [id number] .5[in_u Place 0.5 Univers n 5 mg/gram 2-12 12-20 [id number] s] Inches in ity of (0.5 %) 00:00: 05:59 [place] ophthalmic 00 :00 4 (four) Medic al ointment times Branch daily for 7 days. Continue until you follow up with eye doctor. Escitalopra Escitalopra 2019-04 No 1{table QD Escitalopr m Oxalate m Oxalate 1-24 t} am Oxalate 20 MG 20 MG 00:00: 20 MG 00 Escitalopra Escitalopra 2019-04 No 1{table QD Escitalopr m Oxalate m Oxalate 1-24 t} am Oxalate 20 MG 20 MG 00:00: 20 MG 00 Escitalopra Escitalopra 2019-04 No 1{table QD Escitalopr m Oxalate m Oxalate 1-24 t} am Oxalate 20 MG 20 MG 00:00: 20 MG 00 LOSARTAN 2019- Yes 100mg Take 100 Univ [...] [place] mg 00 :[place] dose, Mon Medical 10/26/20 Branch at 0845, Routine amLODIPine 2019- Yes [id number] 10mg Take 1 [facility] 10 mg 0-26 tablet by ity of tablet 00:00: mouth [place] 00 daily. Medical Branch hydrALAZINE 2019- Yes [id number] 50mg Take 1 [facility] 50 mg 0-26 tablet by ity of tablet 00:00: mouth [place] 00 every 8 Medical (eight) Branch hours. aspirin 81 2019-04 Yes [id number] 81mg Take 1 [facility] mg chewable 0-26 tablet by ity of tablet 00:00: mouth [place] 00 daily. Medical Branch amLODIPine 2019-04 Yes [id number] 10mg Take 1 [facility] 10 mg 0-26 tablet by ity of tablet 00:00: mouth [place] 00 daily. Medical Branch hydrALAZINE 2019-04 Yes [id number] 50mg Take 1 [facility] 50 mg 0-26 tablet by ity of tablet 00:00: mouth [place] 00 every 8 Medical (eight) Branch hours. aspirin 81 2019-04 Yes [id number] 81mg Take 1 [facility] mg chewable 0-26 tablet by ity of tablet 00:00: mouth [place] 00 daily. Medical Branch amLODIPine 2019-04 Yes [id number] 10mg Take 1 [facility] 10 mg 0-26 tablet by ity of tablet 00:00: mouth [place] 00 daily. Medical Branch hydrALAZINE 2019-04 Yes [id number] 50mg Take 1 [facility] 50 mg 0-26 tablet by ity of tablet 00:00: mouth [place] 00 every 8 Medical (eight) Branch hours. aspirin 81 2019-04 Yes [id number] 81mg Take 1 [facility] mg chewable 0-26 tablet by ity of tablet 00:00: mouth [place] 00 daily. Medical Branch amLODIPine 2019-04 Yes [id number] 10mg Take 1 [facility] 10 mg 0-26 tablet by ity of tablet 00:00: mouth [place] 00 daily. Medical Branch hydrALAZINE 2019-04 Yes [id number] 50mg Take 1 [facility] 50 mg 0-26 tablet by ity of tablet 00:00: mouth [place] 00 every 8 Medical (eight) Branch hours. aspirin 81 2019-04 Yes [id number] 81mg Take 1 [facility] mg chewable 0-26 tablet by ity of tablet 00:00: mouth [place] 00 daily. Medical Branch amLODIPine 2019-04 Yes [id number] 10mg Take 1 [facility] 10 mg 0-26 tablet by ity of tablet 00:00: mouth [place] 00 daily. Medical Branch hydrALAZINE 2019- Yes [id number] 50mg Take 1 [facility] 50 mg 0-26 tablet by ity of tablet 00:00: mouth [place] 00 every 8 Medical (eight) Branch hours. aspirin 81 2019- Yes [id number] 81mg Take 1 [facility] mg chewable 0-26 tablet by ity of tablet 00:00: mouth [place] 00 daily. Medical Branch amLODIPine 2019-04 Yes [id number] 10mg Take 1 [facility] 10 mg 0-26 tablet by ity of tablet 00:00: mouth [place] 00 daily. Medical Branch hydrALAZINE 2019-04 Yes [id number] 50mg Take 1 [facility] 50 mg 0-26 tablet by ity of tablet 00:00: mouth [place] 00 every 8 Medical (eight) Branch hours. aspirin 81 2019-04 Yes [id number] 81mg Take 1 [facility] mg chewable 0-26 tablet by ity of tablet 00:00: mouth [place] 00 daily. Medical Branch amLODIPine 2019-04 Yes [id number] 10mg Take 1 [facility] 10 mg 0-26 tablet by ity of tablet 00:00: mouth [place] 00 daily. Medical Branch hydrALAZINE 2019-04 Yes [id number] 50mg Take 1 [facility] 50 mg 0-26 tablet by ity of tablet 00:00: mouth [place] 00 every 8 Medical (eight) Branch hours. aspirin 81 2019-04 Yes [id number] 81mg Take 1 [facility] mg chewable 0-26 tablet by ity of tablet 00:00: mouth [place] 00 daily. Medical Branch amLODIPine 2019- Yes [id number] 10mg Take 1 [facility] 10 mg 0-26 tablet by ity of tablet 00:00: mouth [place] 00 daily. Medical Branch hydrALAZINE 2019- Yes [id number] 50mg Take 1 [facility] 50 mg 0-26 tablet by ity of tablet 00:00: mouth [place] 00 every 8 Medical (eight) Branch hours. aspirin 81 2019-04 Yes [id number] 81mg Take 1 [facility] mg chewable 0-26 tablet by ity of tablet 00:00: mouth [place] 00 daily. Medical Branch amLODIPine 2019- Yes [id number] 10mg Take 1 [facility] 10 mg 0-26 tablet by ity of tablet 00:00: mouth [place] 00 daily. Medical Branch hydrALAZINE 2019-04 Yes [id number] 50mg Take 1 [facility] 50 mg 0-26 tablet by ity of tablet 00:00: mouth [place] 00 every 8 Medical (eight) Branch hours. aspirin 81 2019-04 Yes [id number] 81mg Take 1 [facility] mg chewable 0-26 tablet by ity of tablet 00:00: mouth [place] 00 daily. Medical Branch amLODIPine 2019-04 Yes [id number] 10mg Take 1 [facility] 10 mg 0-26 tablet by ity of tablet 00:00: mouth [place] 00 daily. Medical Branch hydrALAZINE 2019-04 Yes [id number] 50mg Take 1 [facility] 50 mg 0-26 tablet by ity of tablet 00:00: mouth [place] 00 every 8 Medical (eight) Branch hours. aspirin 81 2019-04 Yes [id number] 81mg Take 1 [facility] mg chewable 0-26 tablet by ity of tablet 00:00: mouth [place] 00 daily. Medical Branch amLODIPine 2019-04 Yes [id number] 10mg Take 1 [facility] 10 mg 0-26 tablet by ity of tablet 00:00: mouth [place] 00 daily. Medical Branch hydrALAZINE 2019-04 Yes [id number] 50mg Take 1 [facility] 50 mg 0-26 tablet by ity of tablet 00:00: mouth [place] 00 every 8 Medical (eight) Branch hours. aspirin 81 2019-04 Yes [id number] 81mg Take 1 [facility] mg chewable 0-26 tablet by ity of tablet 00:00: mouth [place] 00 daily. Medical Branch amLODIPine 2019-04 Yes [id number] 10mg Take 1 [facility] 10 mg 0-26 tablet by ity of tablet 00:00: mouth [place] 00 daily. Medical Branch hydrALAZINE 2019-04 Yes [id number] 50mg Take 1 [facility] 50 mg 0-26 tablet by ity of tablet 00:00: mouth [place] 00 every 8 Medical (eight) Branch hours. aspirin 81 2019-04 Yes [id number] 81mg Take 1 [facility] mg chewable 0-26 tablet by ity of tablet 00:00: mouth [place] 00 daily. Medical Branch amLODIPine 2019-04 Yes [id number] 10mg Take 1 [facility] 10 mg 0-26 tablet by ity of tablet 00:00: mouth [place] 00 daily. Medical Branch hydrALAZINE 2019-04 Yes [id number] 50mg Take 1 [facility] 50 mg 0-26 tablet by ity of tablet 00:00: mouth [place] 00 every 8 Medical (eight) Branch hours. aspirin 81 2019- Yes [id number] 81mg Take 1 [facility] mg chewable 0-26 tablet by ity of tablet 00:00: mouth [place] 00 daily. Medical Branch amLODIPine 2019- Yes [id number] 10mg Take 1 [facility] 10 mg 0-26 tablet by ity of tablet 00:00: mouth [place] 00 daily. Medical Branch hydrALAZINE 2019- Yes [id number] 50mg Take 1 [facility] 50 mg 0-26 tablet by ity of tablet 00:00: mouth [place] 00 every 8 Medical (eight) Branch hours. aspirin 81 2019-04 Yes [id number] 81mg Take 1 [facility] mg chewable 0-26 tablet by ity of tablet 00:00: mouth [place] 00 daily. Medical Branch amLODIPine 2019-04 Yes [id number] 10mg Take 1 [facility] 10 mg 0-26 tablet by ity of tablet 00:00: mouth [place] 00 daily. Medical Branch hydrALAZINE 2019-04 Yes [id number] 50mg Take 1 [facility] 50 mg 0-26 tablet by ity of tablet 00:00: mouth [place] 00 every 8 Medical (eight) Branch hours. aspirin 81 2019-04 Yes [id number] 81mg Take 1 [facility] mg chewable 0-26 tablet by ity of tablet 00:00: mouth [place] 00 daily. Medical Branch amLODIPine 2019-04 Yes [id number] 10mg Take 1 [facility] 10 mg 0-26 tablet by ity of tablet 00:00: mouth [place] 00 daily. Medical Branch hydrALAZINE 2019- Yes [id number] 50mg Take 1 [facility] 50 mg 0-26 tablet by ity of tablet 00:00: mouth [place] 00 every 8 Medical (eight) Branch hours. aspirin 81 2019-04 Yes [id number] 81mg Take 1 [facility] mg chewable 0-26 tablet by ity of tablet 00:00: mouth [place] 00 daily. Medical Branch amLODIPine 2019-04 Yes [id number] 10mg Take 1 [facility] 10 mg 0-26 tablet by ity of tablet 00:00: mouth [place] 00 daily. Medical Branch hydrALAZINE 2019- Yes [id number] 50mg Take 1 [facility] 50 mg 0-26 tablet by ity of tablet 00:00: mouth [place] 00 every 8 Medical (eight) Branch hours. aspirin 81 2019- Yes [id number] 81mg Take 1 [facility] mg chewable 0-26 tablet by ity of tablet 00:00: mouth [place] 00 daily. Medical Branch amLODIPine 2019-04 Yes [id number] 10mg Take 1 [facility] 10 mg 0-26 tablet by ity of tablet 00:00: mouth [place] 00 daily. Medical Branch hydrALAZINE 2019-04 Yes [id number] 50mg Take 1 [facility] 50 mg 0-26 tablet by ity of tablet 00:00: mouth [place] 00 every 8 Medical (eight) Branch hours. aspirin 81 2019-04 Yes [id number] 81mg Take 1 [facility] mg chewable 0-26 tablet by ity of tablet 00:00: mouth [place] 00 daily. Medical Branch amLODIPine 2019-04- No [id number] 10mg Take 1 [facility] 10 mg 0-26 04-05 tablet by ity of tablet 00:00: 00:00 mouth [place] 00 :00 daily. Medical Branch hydrALAZINE 2019-04- No [id number] 50mg Take 1 [facility] 50 mg 0-26 04-05 tablet by ity of tablet 00:00: 00:00 mouth [place] 00 :00 every 8 Medical (eight) Branch hours. aspirin 81 2019-04- No [id number] 81mg Take 1 [facility] mg chewable 0-26 04-05 tablet by it y of tablet 00:00: 00:00 mouth [place] 00 :00 daily. Medical Branch amLODIPine 2019-04- No [id number] 10mg Take 1 [facility] 10 mg 0-26 04-05 tablet by ity of tablet 00:00: 00:00 mouth [place] 00 :00 daily. Medical Branch hydrALAZINE 2019-04- No [id number] 50mg Take 1 [facility] 50 mg 0-26 04-05 tablet by ity of tablet 00:00: 00:00 mouth [place] 00 :00 every 8 Medical (eight) Branch hours. aspirin 81 2019-04- No [id number] 81mg Take 1 [facility] mg chewable 0-26 04-05 tablet by it y of tablet 00:00: 00:00 mouth [place] 00 :00 daily. Medical Branch hydrALAZINE 2019-04 Yes 50mg 50 mg, Univ ers (APRESOLINE 0-24 Oral, Q8H, it y of ) tablet 50 19:00: First dose [place] mg 00 (after Medical last Branch modificati on) on 10/24/20 at 1400, Until Discontinu ed, Routine cyanocobala [...] 1 [place] 00 :[place] dose, [facility] Medical 02/05/20 Branch at 1200, Routine lipase-prot [...] ONCE, 1 [place] 00 :00 dose, [facility] Medical 02/04/20 Branch at 1730, Routine ondansetron 2019-04 Yes 4mg 4 mg, Unive rs (ZOFRAN) 0-22 Oral, ity of tablet 4 mg 21:25: Q6HPRN, [place] 39 Starting Medical [facility] Branch 02/04/20 at 1625, Until Discontinu ed, Routine, Nausea and Vomiting (N/V) ondansetron 2019-04- No 4mg 4 mg, Slow Univers (ZOFRAN 0-22 10-22 IV Push, ity of (PF)) 15:15: 21:26 Q8HPRN, [place] injection 4 54 :52 Starting Medi brandy mg [facility] 02/04/20 at 1015, Until [facility] 02/04/20 at 1626, Routine, Nausea and Vomiting (N/V) LORazepam 2019-04 2020- No 1mg 1 mg, Univer s (ATIVAN) 0-22 10-22 Oral, ity of tablet 1 mg 14:30: 23:16 ONCE, 1 [place] 00 :[place] dose, [facility] 02/04/20 Branch at 0930, Routine enoxaparin 2019-04 Yes 40mg 40 mg, Unive rs (LOVENOX) 022 Subcutaneo ity of injection 14:00: [place], DAILY, [place] 40 mg 00 First dose Medical on [facility] 02/04/20 at 0900, Until Discontinu ed, Routine divalproex 2019-04 Yes 500mg 500 mg, Uni vers (DEPAKOTE) 0-22 Oral, ity of EC tablet 14:00: DAILY, [place] 500 mg 00 First dose Medical on [facility] 02/04/20 at 0900, Until Discontinu ed, Routine pantoprazol 2019-04 Yes 40mg 40 mg, Univ ers e 0-22 Oral, BID, ity of (PROTONIX) 13:00: First dose [place] EC tablet 00 on [facility] 40 mg 02/04/20 Branch at 0800, Until Discontinu ed, Routine lactulose 2019-04 Yes 15mL 15 mL, Univer s (CEPHULAC) 0-22 Oral, BID, ity of solution 15 13:00: First dose [place] mL 00 (after Medical last Branch modificati on) on [facility] 02/04/20 at 0800, Until Discontinu ed, Routine traMADoL 2019-04 Yes 50mg 50 mg, Univers (ULTRAM) 0-22 Oral, ity of tablet 50 03:22: Q8HPRN, [place] mg 09 Starting Medical [facility] Branch 02/03/20 at 2222, Until Discontinu ed, Routine, Pain (scale 4-6) lactated 2019-04 2020- No 1000mL at 100 Univ ers ringers IV 0-22 10-25 mL/hr, ity of infusion 02:15: 23:20 1,000 mL, [place] 1,000 mL 00 :45 IV Medical Infusion, Branch CONTINUOUS , Starting Sat02/03/20 at 2115, Until 02/07/20 at 1820, Routine docusate 2019-04 Yes 100mg 100 mg, Unive rs (COLACE) 0 Oral, ity of capsule 100 02:01: BIDPRN, [place] mg 06 Starting Medical [facility] Branch 02/03/20 at 2101, Until Discontinu ed, Routine, Constipati on acetaminoph 2019-04 Yes 650mg 650 mg, Un you en Oral, ity of (TYLENOL) 01:58: Q8HPRN, [place] tablet 650 47 Starting Medic al mg [facility] Branch 02/03/20 at 2058, Until Discontinu ed, Routine, Pain (scale 1-3) ondansetron 2019-04- No 4mg 4 mg, Univ ers (ZOFRAN) 02-03 Oral, ity of tablet 4 mg 01:52: 21:19 Q8HPRN, [place] 29 :27 Starting Medical [facility] Branch 02/03/20 at 205, Until [place] 02/04/20 at 1619, Routine, Nausea and Vomiting (N/V) sennosides 2019-04 Yes 8.6mg 8.6 mg, Uni vers (SENOKOT) 0 Oral, ity of tablet 8.6 16:30: DAILY, [place] mg 00 First dose Medical on Sat Branch 02/03/20 at 1130, Until Discontinu ed, Routine magnesium 2019-04 Yes 400mg 400 mg, Univ ers oxide 0 Oral, ity of (MAG-OX 16:30: DAILY, [place] 400) tablet 00 First dose Me dical 400 mg on Sat Branch 02/03/20 at 1130, Until Discontinu ed, Routine docusate 2019-04 2020- No 100mg 100 mg, Univ ers (COLACE) 002-03 Oral, ity of capsule 100 16:30: 02:14 DAILY, [place] mg 00 :35 First dose Medical on [facility] Branch 02/03/20 at 1130, Until Discontinu ed, Routine lactulose 2019-04 2020- No 15mL 15 mL, Unive rs (CEPHULAC) 002-02 Oral, QID, it y of solution 15 03:30: 21:01 First dose [place] mL 00 :02 on [facility] 02/02/20 Branch at 2230, Until Discontinu ed, Routine amLODIPine 2019-04 Yes 10mg 10 mg, Unive rs (NORVASC) 0-20 Oral, ity of tablet 10 22:30: DAILY, [place] mg 00 First dose Medical on [facility] 02/02/20 at 1730, Until Discontinu ed, Routine labetaloL 2019-04 Yes 10mg 10 mg, Univer s (NORMODYNE) 0-20 Slow IV ity o f injection 22:18: Push, [place] 10 mg 17 Q4HPRN, Medical Starting Branch 02/02/20 at 1718, Until Discontinu ed, Routine, sbp [...] mg 00 First dose Medical on [facility] 02/02/20 at 1415, Until Discontinu ed, Routine lipase-prot 2019-04 2020- No 1{capsu 1 capsule, Univers ease-amylas 0-20 10-23 le} Oral, TID it y of e 19:15: 13:49 MEALS, [place] (PANCREAZE) 00 :19 First dose Me dical 16,800-56,8 on [facility] Branch 00- 98,400 02/02/20 unit at [...] approving Restricted medication : MADHAV NICOLE cloNIDine 2019-04- No .1mg 0.1 mg, Univ ers (CATAPRES) 0-01 02-20 Oral, ity of tablet 0.1 06:00: 05:21 ONCE, 1 [place] mg 00 :00 dose, [facility] Medical 02/02/20 Branch at 0100, Routine D5W 0.45% 2019-04- No 1000mL at 150 Uni vers NaCl 0-20 10-20 mL/hr, ity of (1/2NS) IV 00:15: 19:02 1,000 mL, [place] infusion 00 :15 IV Medical 1,000 mL Infusion, Branch CONTINUOUS , Starting Sat02/01/20 at 1915, Until Sat02/02/20 at 1402, Routine vancomycin 2019-04- No 15mg/kg 1,250 mg Univers 1250 mg in 002-01 (rounded ity of NS 250 mL 00:15: [...] 10 mg 41 Q4HPRN, Medical Starting Branch [facility] 02/01/20 at 1545, Until Discontinu ed, STAT, SBP > 180, DBP > 120
Ind ication: Hypertensi ve Emergency NaCl 0.45% 2019-04- No 1000mL at 150 Un you (1/2NS) IV 0-19 10-20 mL/hr, ity of infusion 18:45: 06:44 1,000 mL, [place] 1,000 mL 00 :00 IV Medical Infusion, Branch ONCE, 1 dose, [facility] 02/01/20 at 1345, Routine cyanocobala 2019-04- No 1000ug 1,000 mcg, Univers min 0 10-24 Subcutaneo ity of (VITAMIN 15:30: 14:03 us, Q24H, [place] B12) 00 :58 First dose Medical injection on [facility] Branch 1,000 mcg 02/01/20 at 1030, Until Discontinu ed, Routine NaCl 0.45% 2019-04 No 1000mL at 100 Un you (1/2NS) IV 0- 10-19 mL/hr, ity of infusion 15:30: 17:38 1,000 mL, [place] 1,000 mL 00 :01 IV Medical Infusion, Branch CONTINUOUS , Starting Sat02/01/20 at 1030, Until Sat02/01/20 at 1238, Routine enoxaparin 2019-04 No 30mg 30 mg, Univ ers (LOVENOX) 10-22 Subcutaneo ity of injection 14:00: 02:09 us, DAILY, [place] 30 mg 00 :34 First dose Medical on [facility] Branch 02/01/20 at 0900, Until Discontinu ed, Routine NaCl 0.9% 2019-04- No 2000mL at 125 Uni vers (NS) IV 0- 10-19 mL/hr, IV ity of infusion 03:30: 03:17 Infusion, [place] 2,000 mL 00 :00 ONCE, 1 Medical dose, [facility] 01/31/20 at 2230, Routine thiamine 2019-04 No 100mg IV Univers (VITAMIN 0-30 01- Piggyback, ity of B1) 100 mg 22:30: 14:59 DAILY, 2 [place] in NaCl 00 :00 doses, Medical 0.9% (NS) First dose Bran ch piggyback on [place] 01/31/20 at 1730, Last dose on [facility] 02/01/20 at 0900, 50 mL lactated 2019-04- No 1000mL at 125 Univ ers ringers IV 0-18 10-19 mL/hr, ity of infusion 22:30: 02:29 1,000 mL, [place] 1,000 mL 00 :41 IV Medical Infusion, Branch CONTINUOUS , Starting [place] 01/31/20 at 1730, Until [place] 01/31/20 at 2129, Routine NaCl 0.9% 2019-04 2020- No 30mL/kg at 999 Un you (NS) bolus 0-18 10-18 mL/hr, ity of infusion 15:45: 16:04 2,730 mL [place] 2,730 mL 00 :00 (30 mL/kg Medica l ?91 kg), Branch IV Infusion, ONCE, 1 dose, 01/31/20 at 1045, [place] Sucralfate Sucralfate 2019-0 No 1{table Sucralfate 1 GM 1 GM 01-05 t_on_an 1 GM 00:00: _empty_ 00 stomach } Sucralfate Sucralfate 2019-0 No 1{table Sucralfate 1 GM 1 GM 23 t_on_an 1 GM 00:00: _empty_ 00 stomach } Sucralfate Sucralfate 2019-0 No 1{table Sucralfate 1 GM 1 GM 23 t_on_an 1 GM 00:00: _empty_ 00 stomach } haloperidol 2019- No 2.5mg 2.5 mg, U [...] ONCE, 1 Medical 50 mcg dose, Fri [place] 12/18/19 at 1845, Routine iohexol 2019- 2020- No 120mL 120 mL, Unive rs (OMNIPAQUE 12-17 Intravenou it y of 350 22:01: 22:02 s, ONCE, 1 [place] BULK-100 00 :00 dose, Fri Medica l mL) 12/18/19 at Branch injection 1715, 120 mL Routine proMETHazin 2019- 2020- No 25mg 25 mg, IV Univers e 12-17 Piggyback, ity of (PHENERGAN) 21:30: 20:40 ONCE, 1 [place] 25 mg in 00 :00 dose, Fri Medica l NaCl 0.9% 12/18/19 at Branc h (NS) 50 mL 1630, 50 piggyback mL proMETHazin 2020-0 Yes [id number] 25mg Insert 1 Univers e 9-04 Suppositor ity of (PHENERGAN) 00:00: y [place] 25 mg 00 rectum Medical suppository every 4 Branc h (four) hours as needed for Nausea and Vomiting (N/V). proMETHazin 2020-0 Yes [id number] 25mg Insert 1 Univers e 9-04 Suppositor ity of (PHENERGAN) 00:00: y into [place] 25 mg 00 rectum Medical suppository every 4 Branc h (four) hours as needed for Nausea and Vomiting (N/V). proMETHazin 2020-0 Yes [id number] 25mg Insert 1 Univers e 9-04 Suppositor ity of (PHENERGAN) 00:00: y into [place] 25 mg 00 rectum Medical suppository every 4 Branc h (four) hours as needed for Nausea and Vomiting (N/V). proMETHazin 2020-0 Yes [id number] 25mg Insert 1 Univers e 9-04 Suppositor ity of (PHENERGAN) 00:00: y into [place] 25 mg 00 rectum Medical suppository every 4 Branc h (four) hours as needed for Nausea and Vomiting (N/V). proMETHazin 2020-0 Yes [id number] 25mg Insert 1 Univers e 9-04 Suppositor ity of (PHENERGAN) 00:00: y into [place] 25 mg 00 rectum Medical suppository every 4 Branc h (four) hours as needed for Nausea and Vomiting (N/V). proMETHazin 2020-0 Yes [id number] 25mg Insert 1 Univers e 9-04 Suppositor ity of (PHENERGAN) 00:00: y into [place] 25 mg 00 rectum Medical suppository every 4 Branc h (four) hours as needed for Nausea and Vomiting (N/V). proMETHazin 2020-0 Yes [id number] 25mg Insert 1 Univers e 9-04 Suppositor ity of (PHENERGAN) 00:00: y into [place] 25 mg 00 rectum Medical suppository every 4 Branc h (four) hours as needed for Nausea and Vomiting (N/V). proMETHazin 2020-0 Yes [id number] 25mg Insert 1 Univers e 9-04 Suppositor ity of (PHENERGAN) 00:00: y into [place] 25 mg 00 rectum Medical suppository every 4 Branc h (four) hours as needed for Nausea and Vomiting (N/V). proMETHazin 2020-0 Yes [id number] 25mg Insert 1 Univers e 9-04 Suppositor ity of (PHENERGAN) 00:00: y into [place] 25 mg 00 rectum Medical suppository every 4 Branc h (four) hours as needed for Nausea and Vomiting (N/V). proMETHazin 2020-0 Yes [id number] 25mg Insert 1 Univers e 9-04 Suppositor ity of (PHENERGAN) 00:00: y into [place] 25 mg 00 rectum Medical suppository every 4 Branc h (four) hours as needed for Nausea and Vomiting (N/V). proMETHazin 2020-0 Yes [id number] 25mg Insert 1 Univers e 9-04 Suppositor ity of (PHENERGAN) 00:00: y into [place] 25 mg 00 rectum Medical suppository every 4 Branc h (four) hours as needed for Nausea and Vomiting (N/V). proMETHazin 2020-0 Yes [id number] 25mg Insert 1 Univers e 9-04 Suppositor ity of (PHENERGAN) 00:00: y into [place] 25 mg 00 rectum Medical suppository every 4 Branc h (four) hours as needed for Nausea and Vomiting (N/V). proMETHazin 2020-0 Yes [id number] 25mg Insert 1 Univers e 9-04 Suppositor ity of (PHENERGAN) 00:00: y into [place] 25 mg 00 rectum Medical suppository every 4 Branc h (four) hours as needed for Nausea and Vomiting (N/V). proMETHazin 2020-0 Yes [id number] 25mg Insert 1 Univers e 9-04 Suppositor ity of (PHENERGAN) 00:00: y into [place] 25 mg 00 rectum Medical suppository every 4 Branc h (four) hours as needed for Nausea and Vomiting (N/V). proMETHazin 2020-0 Yes [id number] 25mg Insert 1 Univers e 9-04 Suppositor ity of (PHENERGAN) 00:00: y into [place] 25 mg 00 rectum Medical suppository every 4 Branc h (four) hours as needed for Nausea and Vomiting (N/V). proMETHazin 2020-0 Yes [id number] 25mg Insert 1 Univers e 9-04 Suppositor ity of (PHENERGAN) 00:00: y into [place] 25 mg 00 rectum Medical suppository every 4 Branc h (four) hours as needed for Nausea and Vomiting (N/V). proMETHazin 2020-0 Yes [id number] 25mg Insert 1 Univers e 9-04 Suppositor ity of (PHENERGAN) 00:00: y into [place] 25 mg 00 rectum Medical suppository every 4 Branc h (four) hours as needed for Nausea and Vomiting (N/V). proMETHazin 2020-0 Yes [id number] 25mg Insert 1 Univers e 9-04 Suppositor ity of (PHENERGAN) 00:00: y into [place] 25 mg 00 rectum Medical suppository every 4 Branc h (four) hours as needed for Nausea and Vomiting (N/V). proMETHazin 2020-0 Yes [id number] 25mg Insert 1 Univers e 9-04 Suppositor ity of (PHENERGAN) 00:00: y into [place] 25 mg 00 rectum Medical suppository every 4 Branc h (four) hours as needed for Nausea and Vomiting (N/V). proMETHazin 2019-2020- No [id number] 25mg Insert 1 [facility] e 9-05 Suppositor ity of (PHENERGAN) 00:00: 00:00 y into [place] 25 mg 00 :00 rectum Medical suppository every 4 Branc h (four) hours as needed for Nausea and Vomiting (N/V). proMETHazin 2019-2020- No [id number] 25mg Insert 1 [facility] e 9-07 17-05 Suppositor ity of (PHENERGAN) 00:00: 00:00 y into [place] as 25 mg 00 :00 rectum Medical suppository every 4 Branc h (four) hours as needed for Nausea and Vomiting (N/V). Chlorhexidi Chlorhexidi 2019- No Na [place] 15 ML Common ne ne 6-23 0630 swish and [facility] Gluconate Gluconate 00:00: 00:00 spit - [facility] 00 :00 [facility] cloNIDine 2020-0 2020- No .2mg 0.2 mg, Univ ers (CATAPRES) 08-21- Oral, ity of tablet 0.2 05:00: 04:00 ONCE, 1 [place] mg 00 :00 dose, Sat Medical 08/22/19 at Branch 0000, STAT ondansetron 0 2020- No 4mg 4 mg, Slow Univers (ZOFRAN 08-21 IV Push, ity of (PF)) 04:15: 03:15 ONCE, 1 [place] injection 4 00 :00 dose, Fri Med ical mg 08/21/19 at Branch 2315, [place] FENTanyl PF 2019- 2020- No 50ug 50 [...] at Branch 2315, Routine Nitrofurant 2020-0 Yes [id number] 100mg Take 1 [facility] oin&Nit. 5-08 capsule by ity o f Macrocryst 00:00: mouth 2 [place] (MACROBID) 00 (two) Medical 100 mg times Branch capsule daily. benzonatate 2020-0 Yes [id number] 200mg Take 1 [facility] 200 mg 5-08 capsule by ity of capsule 00:00: mouth 3 [place] 00 (three) Medical times Branch daily as needed for Cough. ondansetron 2020-0 Yes [id number] 4mg Take 1 [facility] (ZOFRAN) 4 5-08 tablet by ity of mg tablet 00:00: mouth [place] 00 every 8 Medical (eight) Branch hours as needed for Nausea and Vomiting (N/V). traMADol 2020-0 Yes [id number] 50mg Take 1 Uni vers (ULTRAM) 50 5-08 tablet by ity of mg tablet 00:00: mouth [place] 00 every 6 Medical (six) Branch hours as needed for Pain (scale 7-10). albuterol 2020-0 Yes [id number] 2{puff} Inhale 2 [facility] 90 5-08 Puffs ity of mcg/actuati 00:00: every 4 [place] on inhaler 00 (four) Medical hours as Branch needed for Wheezing, Shortness of Breath, Bronchospa sm or Chest tightness. benzonatate 2020-0 Yes [id number] 200mg Take 1 [facility] 200 mg 5-08 capsule by ity of capsule 00:00: mouth 3 [place] 00 (three) Medical times Branch daily as needed for Cough. ondansetron 2020-0 Yes [id number] 4mg Take 1 [facility] (ZOFRAN) 4 5-08 tablet by ity of mg tablet 00:00: mouth [place] 00 every 8 Medical (eight) Branch hours as needed for Nausea and Vomiting (N/V). traMADol 2020-0 Yes [id number] 50mg Take 1 Uni vers (ULTRAM) 50 5-08 tablet by ity of mg tablet 00:00: mouth [place] 00 every 6 Medical (six) Branch hours as needed for Pain (scale 7-10). albuterol 2020-0 Yes [id number] 2{puff} Inhale 2 [facility] 90 5-08 Puffs ity of mcg/actuati 00:00: every 4 [place] on inhaler 00 (four) Medical hours as Branch needed for Wheezing, Shortness of Breath, Bronchospa sm or Chest tightness. benzonatate 2020-0 Yes [id number] 200mg Take 1 [facility] 200 mg 5-08 capsule by ity of capsule 00:00: mouth 3 [place] 00 (three) Medical times Branch daily as needed for Cough. ondansetron 2020-0 Yes [id number] 4mg Take 1 [facility] (ZOFRAN) 4 5-08 tablet by ity of mg tablet 00:00: mouth [place] 00 every 8 Medical (eight) Branch hours as needed for Nausea and Vomiting (N/V). traMADol 2020-0 Yes [id number] 50mg Take 1 Uni vers (ULTRAM) 50 5-08 tablet by ity of mg tablet 00:00: mouth [place] 00 every 6 Medical (six) Branch hours as needed for Pain (scale 7-10). albuterol 2020-0 Yes [id number] 2{puff} Inhale 2 [facility] 90 5-08 Puffs ity of mcg/actuati 00:00: every 4 [place] on inhaler 00 (four) Medical hours as Branch needed for Wheezing, Shortness of Breath, Bronchospa sm or Chest tightness. benzonatate 2020-0 Yes [id number] 200mg Take 1 [facility] 200 mg 5-08 capsule by ity of capsule 00:00: mouth 3 [place] 00 (three) Medical times Branch daily as needed for Cough. ondansetron 2020-0 Yes [id number] 4mg Take 1 [facility] (ZOFRAN) 4 5-08 tablet by ity of mg tablet 00:00: mouth [place] 00 every 8 Medical (eight) Branch hours as needed for Nausea and Vomiting (N/V). traMADol 2020-0 Yes [id number] 50mg Take 1 Uni vers (ULTRAM) 50 5-08 tablet by ity of mg tablet 00:00: mouth [place] 00 every 6 Medical (six) Branch hours as needed for Pain (scale 7-10). albuterol 2020-0 Yes [id number] 2{puff} Inhale 2 [facility] 90 5-08 Puffs ity of mcg/actuati 00:00: every 4 [place] on inhaler 00 (four) Medical hours as Branch needed for Wheezing, Shortness of Breath, Bronchospa sm or Chest tightness. benzonatate 2020-0 Yes [id number] 200mg Take 1 [facility] 200 mg 5-08 capsule by ity of capsule 00:00: mouth 3 [place] 00 (three) Medical times Branch daily as needed for Cough. ondansetron 2020-0 Yes [id number] 4mg Take 1 Univers (ZOFRAN) 4 5-08 tablet by ity of mg tablet 00:00: mouth [place] 00 every 8 Medical (eight) Branch hours as needed for Nausea and Vomiting (N/V). traMADol 2020-0 Yes [id number] 50mg Take 1 Uni vers (ULTRAM) 50 5-08 tablet by ity of mg tablet 00:00: mouth [place] 00 every 6 Medical (six) Branch hours as needed for Pain (scale 7-10). albuterol 2020-0 Yes [id number] 2{puff} Inhale 2 [facility] 90 5-08 Puffs ity of mcg/actuati 00:00: every 4 [place] on inhaler 00 (four) Medical hours as Branch needed for Wheezing, Shortness of Breath, Bronchospa sm or Chest tightness. benzonatate 2020-0 Yes [id number] 200mg Take 1 [facility] 200 mg 5-08 capsule by ity of capsule 00:00: mouth 3 [place] 00 (three) Medical times Branch daily as needed for Cough. ondansetron 2020-0 Yes [id number] 4mg Take 1 [facility] (ZOFRAN) 4 5-08 tablet by ity of mg tablet 00:00: mouth [place] 00 every 8 Medical (eight) Branch hours as needed for Nausea and Vomiting (N/V). traMADol 2020-0 Yes [id number] 50mg Take 1 Uni vers (ULTRAM) 50 5-08 tablet by ity of mg tablet 00:00: mouth [place] 00 every 6 Medical (six) Branch hours as needed for Pain (scale 7-10). albuterol 2020-0 Yes [id number] 2{puff} Inhale 2 [facility] 90 5-08 Puffs ity of mcg/actuati 00:00: every 4 [place] on inhaler 00 (four) Medical hours as Branch needed for Wheezing, Shortness of Breath, Bronchospa sm or Chest tightness. benzonatate 2020-0 Yes [id number] 200mg Take 1 [facility] 200 mg 5-08 capsule by ity of capsule 00:00: mouth 3 00 (three) Medical times Branch daily as needed for Cough. ondansetron 2020-0 Yes [id number] 4mg Take 1 [facility] (ZOFRAN) 4 5-08 tablet by ity of mg tablet 00:00: mouth [place] 00 every 8 Medical (eight) Branch hours as needed for Nausea and Vomiting (N/V). traMADol 2020-0 Yes [id number] 50mg Take 1 Uni vers (ULTRAM) 50 5-08 tablet by ity of mg tablet 00:00: mouth [place] 00 every 6 Medical (six) Branch hours as needed for Pain (scale 7-10). albuterol 2020-0 Yes [id number] 2{puff} Inhale 2 [facility] 90 5-08 Puffs ity of mcg/actuati 00:00: every 4 [place] on inhaler 00 (four) Medical hours as Branch needed for Wheezing, Shortness of Breath, Bronchospa sm or Chest tightness. benzonatate 2020-0 Yes [id number] 200mg Take 1 [facility] 200 mg 5-08 capsule by ity of capsule 00:00: mouth 3 [place] 00 (three) Medical times Branch daily as needed for Cough. ondansetron 2020-0 Yes [id number] 4mg Take 1 [facility] (ZOFRAN) 4 5-08 tablet by ity of mg tablet 00:00: mouth [place] 00 every 8 Medical (eight) Branch hours as needed for Nausea and Vomiting (N/V). traMADol 2020-0 Yes [id number] 50mg Take 1 Uni vers (ULTRAM) 50 5-08 tablet by ity of mg tablet 00:00: mouth [place] 00 every 6 Medical (six) Branch hours as needed for Pain (scale 7-10). albuterol 2020-0 Yes [id number] 2{puff} Inhale 2 [facility] 90 5-08 Puffs ity of mcg/actuati 00:00: every 4 [place] on inhaler 00 (four) Medical hours as Branch needed for Wheezing, Shortness of Breath, Bronchospa sm or Chest tightness. benzonatate 2020-0 Yes [id number] 200mg Take 1 [facility] 200 mg 5-08 capsule by ity of capsule 00:00: mouth (three) Medical times Branch daily as needed for Cough. ondansetron 2020-0 Yes [id number] 4mg Take 1 [facility] (ZOFRAN) 4 5-08 tablet by ity of mg tablet 00:00: mouth [place] 00 every 8 Medical (eight) Branch hours as needed for Nausea and Vomiting (N/V). traMADol 2020-0 Yes [id number] 50mg Take 1 Uni vers (ULTRAM) 50 5-08 tablet by ity of mg tablet 00:00: mouth [place] 00 every 6 Medical (six) Branch hours as needed for Pain (scale 7-10). albuterol 2020-0 Yes [id number] 2{puff} Inhale 2 [facility] 90 5-08 Puffs ity of mcg/actuati 00:00: every 4 [place] as on inhaler 00 (four) Medical hours as Branch needed for Wheezing, Shortness of Breath, Bronchospa sm or Chest tightness. benzonatate 2020-0 Yes [id number] 200mg Take 1 [facility] 200 mg 5-08 capsule by ity of capsule 00:00: mouth 3 (three) Medical times Branch daily as needed for Cough. ondansetron 2020-0 Yes [id number] 4mg Take 1 [facility] (ZOFRAN) 4 5-08 tablet by ity of mg tablet 00:00: mouth [place] 00 every 8 Medical (eight) Branch hours as needed for Nausea and Vomiting (N/V). traMADol 2020-0 Yes [id number] 50mg Take 1 Uni vers (ULTRAM) 50 5-08 tablet by ity of mg tablet 00:00: mouth [place] 00 every 6 Medical (six) Branch hours as needed for Pain (scale 7-10). albuterol 2020-0 Yes [id number] 2{puff} Inhale 2 [facility] 90 5-08 Puffs ity of mcg/actuati 00:00: every 4 [place] on inhaler 00 (four) Medical hours as Branch needed for Wheezing, Shortness of Breath, Bronchospa sm or Chest tightness. benzonatate 2020-0 Yes [id number] 200mg Take 1 [facility] 200 mg 5-08 capsule by ity of capsule 00:00: mouth 3 [place] 00 (three) Medical times Branch daily as needed for Cough. ondansetron 2020-0 Yes [id number] 4mg Take 1 Univers (ZOFRAN) 4 5-08 tablet by ity of mg tablet 00:00: mouth [place] 00 every 8 Medical (eight) Branch hours as needed for Nausea and Vomiting (N/V). traMADol 2020-0 Yes [id number] 50mg Take 1 Uni vers (ULTRAM) 50 5-08 tablet by ity of mg tablet 00:00: mouth [place] 00 every 6 Medical (six) Branch hours as needed for Pain (scale 7-10). albuterol 2020-0 Yes [id number] 2{puff} Inhale 2 [facility] 90 5-08 Puffs ity of mcg/actuati 00:00: every 4 [place] on inhaler 00 (four) Medical hours as Branch needed for Wheezing, Shortness of Breath, Bronchospa sm or Chest tightness. benzonatate 2020-0 Yes [id number] 200mg Take 1 [facility] 200 mg 5-08 capsule by ity of capsule 00:00: mouth 3 [place] 00 (three) Medical times Branch daily as needed for Cough. ondansetron 2020-0 Yes [id number] 4mg Take 1 [facility] (ZOFRAN) 4 5-08 tablet by ity of mg tablet 00:00: mouth [place] 00 every 8 Medical (eight) Branch hours as needed for Nausea and Vomiting (N/V). traMADol 2020-0 Yes [id number] 50mg Take 1 Uni vers (ULTRAM) 50 5-08 tablet by ity of mg tablet 00:00: mouth [place] 00 every 6 Medical (six) Branch hours as needed for Pain (scale 7-10). albuterol 2020-0 Yes [id number] 2{puff} Inhale 2 [facility] 90 5-08 Puffs ity of mcg/actuati 00:00: every 4 [place] on inhaler 00 (four) Medical hours as Branch needed for Wheezing, Shortness of Breath, Bronchospa sm or Chest tightness. benzonatate 2020-0 Yes [id number] 200mg Take 1 [facility] 200 mg 5-08 capsule by ity of capsule 00:00: mouth 3 [place] 00 (three) Medical times Branch daily as needed for Cough. ondansetron 2020-0 Yes [id number] 4mg Take 1 [facility] (ZOFRAN) 4 5-08 tablet by ity of mg tablet 00:00: mouth [place] 00 every 8 Medical (eight) Branch hours as needed for Nausea and Vomiting (N/V). traMADol 2020-0 Yes [id number] 50mg Take 1 Uni vers (ULTRAM) 50 5-08 tablet by ity of mg tablet 00:00: mouth [place] 00 every 6 Medical (six) Branch hours as needed for Pain (scale 7-10). albuterol 2020-0 Yes [id number] 2{puff} Inhale 2 [facility] 90 5-08 Puffs ity of mcg/actuati 00:00: every 4 [place] as on inhaler 00 (four) Medical hours as Branch needed for Wheezing, Shortness of Breath, Bronchospa sm or Chest tightness. benzonatate 2020-0 Yes [id number] 200mg Take 1 [facility] 200 mg 5-08 capsule by ity of capsule 00:00: mouth 3 [place] 00 (three) Medical times Branch daily as needed for Cough. ondansetron 2020-0 Yes [id number] 4mg Take 1 Univers (ZOFRAN) 4 5-08 tablet by ity of mg tablet 00:00: mouth [place] 00 every 8 Medical (eight) Branch hours as needed for Nausea and Vomiting (N/V). traMADol 2020-0 Yes [id number] 50mg Take 1 Uni vers (ULTRAM) 50 5-08 tablet by ity of mg tablet 00:00: mouth [place] 00 every 6 Medical (six) Branch hours as needed for Pain (scale 7-10). albuterol 2020-0 Yes [id number] 2{puff} Inhale 2 [facility] 90 5-08 Puffs ity of mcg/actuati 00:00: every 4 [place] on inhaler 00 (four) Medical hours as Branch needed for Wheezing, Shortness of Breath, Bronchospa sm or Chest tightness. benzonatate 2020-0 Yes [id number] 200mg Take 1 [facility] 200 mg 5-08 capsule by ity of capsule 00:00: mouth 3 [place] 00 (three) Medical times Branch daily as needed for Cough. ondansetron 2020-0 Yes [id number] 4mg Take 1 [facility] (ZOFRAN) 4 5-08 tablet by ity of mg tablet 00:00: mouth [place] 00 every 8 Medical (eight) Branch hours as needed for Nausea and Vomiting (N/V). traMADol 2020-0 Yes [id number] 50mg Take 1 Uni vers (ULTRAM) 50 5-08 tablet by ity of mg tablet 00:00: mouth [place] 00 every 6 Medical (six) Branch hours as needed for Pain (scale 7-10). albuterol 2020-0 Yes [id number] 2{puff} Inhale 2 [facility] 90 5-08 Puffs ity of mcg/actuati 00:00: every 4 [place] on inhaler 00 (four) Medical hours as Branch needed for Wheezing, Shortness of Breath, Bronchospa sm or Chest tightness. benzonatate 2020-0 Yes [id number] 200mg Take 1 [facility] 200 mg 5-08 capsule by ity of capsule 00:00: mouth 3 [place] 00 (three) Medical times Branch daily as needed for Cough. ondansetron 2020-0 Yes [id number] 4mg Take 1 [facility] (ZOFRAN) 4 5-08 tablet by ity of mg tablet 00:00: mouth [place] 00 every 8 Medical (eight) Branch hours as needed for Nausea and Vomiting (N/V). traMADol 2020-0 Yes [id number] 50mg Take 1 Uni vers (ULTRAM) 50 5-08 tablet by ity of mg tablet 00:00: mouth [place] 00 every 6 Medical (six) Branch hours as needed for Pain (scale 7-10). albuterol 2020-0 Yes [id number] 2{puff} Inhale 2 [facility] 90 5-08 Puffs ity of mcg/actuati 00:00: every 4 [place] on inhaler 00 (four) Medical hours as Branch needed for Wheezing, Shortness of Breath, Bronchospa sm or Chest tightness. benzonatate 2020-0 Yes [id number] 200mg Take 1 [facility] 200 mg 5-08 capsule by ity of capsule 00:00: mouth 3 [place] 00 (three) Medical times Branch daily as needed for Cough. ondansetron 2020-0 Yes [id number] 4mg Take 1 [facility] (ZOFRAN) 4 5-08 tablet by ity of mg tablet 00:00: mouth [place] 00 every 8 Medical (eight) Branch hours as needed for Nausea and Vomiting (N/V). traMADol 2020-0 Yes [id number] 50mg Take 1 Uni vers (ULTRAM) 50 5-08 tablet by ity of mg tablet 00:00: mouth [place] 00 every 6 Medical (six) Branch hours as needed for Pain (scale 7-10). albuterol 2020-0 Yes [id number] 2{puff} Inhale 2 [facility] 90 5-08 Puffs ity of mcg/actuati 00:00: every 4 [place] on inhaler 00 (four) Medical hours as Branch needed for Wheezing, Shortness of Breath, Bronchospa sm or Chest tightness. benzonatate 2020-0 Yes [id number] 200mg Take 1 [facility] 200 mg 5-08 capsule by ity of capsule 00:00: mouth 3 [place] 00 (three) Medical times Branch daily as needed for Cough. ondansetron 2020-0 Yes [id number] 4mg Take 1 [facility] (ZOFRAN) 4 5-08 tablet by ity of mg tablet 00:00: mouth [place] 00 every 8 Medical (eight) Branch hours as needed for Nausea and Vomiting (N/V). traMADol 2020-0 Yes [id number] 50mg Take 1 Uni vers (ULTRAM) 50 5-08 tablet by ity of mg tablet 00:00: mouth [place] 00 every 6 Medical (six) Branch hours as needed for Pain (scale 7-10). albuterol 2020-0 Yes [id number] 2{puff} Inhale 2 [facility] 90 5-08 Puffs ity of mcg/actuati 00:00: every 4 [place] on inhaler 00 (four) Medical hours as Branch needed for Wheezing, Shortness of Breath, Bronchospa sm or Chest tightness. benzonatate 2020-0 Yes [id number] 200mg Take 1 [facility] 200 mg 5-08 capsule by ity of capsule 00:00: mouth 3 [place] 00 (three) Medical times Branch daily as needed for Cough. ondansetron 2020-0 Yes [id number] 4mg Take 1 [facility] (ZOFRAN) 4 5-08 tablet by ity of mg tablet 00:00: mouth [place] 00 every 8 Medical (eight) Branch hours as needed for Nausea and Vomiting (N/V). traMADol 2020-0 Yes [id number] 50mg Take 1 Uni vers (ULTRAM) 50 5-08 tablet by ity of mg tablet 00:00: mouth [place] 00 every 6 Medical (six) Branch hours as needed for Pain (scale 7-10). albuterol 2020-0 Yes [id number] 2{puff} Inhale 2 [facility] 90 5-08 Puffs ity of mcg/actuati 00:00: every 4 [place] on inhaler 00 (four) Medical hours as Branch needed for Wheezing, Shortness of Breath, Bronchospa sm or Chest tightness. ondansetron 2020-0 Yes [id number] 4mg Take 1 [facility] (ZOFRAN) 4 5-08 tablet by ity of mg tablet 00:00: mouth [place] 00 every 8 Medical (eight) Branch hours as needed for Nausea and Vomiting (N/V). ondansetron 2020-0 Yes [id number] 4mg Take 1 [facility] (ZOFRAN) 4 5-08 tablet by ity of mg tablet 00:00: mouth [place] 00 every 8 Medical (eight) Branch hours as needed for Nausea and Vomiting (N/V). ondansetron 2020-0 Yes [id number] 4mg Take 1 [facility] (ZOFRAN) 4 5-08 tablet by ity of mg tablet 00:00: mouth [place] 00 every 8 Medical (eight) Branch hours as needed for Nausea and Vomiting (N/V). ondansetron 2020-0 Yes [id number] 4mg Take 1 [facility] (ZOFRAN) 4 5-08 tablet by ity of mg tablet 00:00: mouth [place] 00 every 8 Medical (eight) Branch hours as needed for Nausea and Vomiting (N/V). Nitrofurant 2020-0 Yes [id number] 100mg Take 1 [facility] oin&Nit. 5-08 capsule by ity o f Macrocryst 00:00: mouth 2 [place] (MACROBID) 00 (two) Medical 100 mg times Branch capsule daily. benzonatate 2020- Yes [id number] 200mg Take 1 [facility] 200 mg 5-08 capsule by ity of capsule 00:00: mouth 3 [place] 00 (three) Medical times Branch daily as needed for Cough. ondansetron Yes [id number] 4mg Take 1 [facility] (ZOFRAN) 4 5-08 tablet by ity of mg tablet 00:00: mouth [place] 00 every 8 Medical (eight) Branch hours as needed for Nausea and Vomiting (N/V). traMADol 2019- Yes [id number] 50mg Take 1 Uni vers (ULTRAM) 50 5-08 tablet by ity of mg tablet 00:00: mouth [place] 00 every 6 Medical (six) Branch hours as needed for Pain (scale 7-10). albuterol Yes [id number] 2{puff} Inhale 2 [facility] 90 5-08 Puffs ity of mcg/actuati 00:00: every 4 [place] on inhaler 00 (four) Medical hours as Branch needed for Wheezing, Shortness of Breath, Bronchospa sm or Chest tightness. ondansetron 2020- No [id number] 4mg Take 1 Univers (ZOFRAN) 4 5-08 06-30 tablet by ity of mg tablet 00:00: 00:00 mouth [place] 00 :00 every 8 Medical (eight) Branch hours as needed for Nausea and Vomiting (N/V). benzonatate 2020- No [id number] 200mg Take 1 [facility] 200 mg 5-08 04-05 capsule by ity of capsule 00:00: 00:00 mouth 3 [place] 00 :00 (three) Medical times Branch daily as needed for Cough. traMADol 2020- No [id number] 50mg Take 1 Un you (ULTRAM) 50 5-08 04-05 tablet by it y of mg tablet 00:00: 00:00 mouth [place] 00 :00 every 6 Medical (six) Branch hours as needed for Pain (scale 7-10). albuterol 2020- No [id number] 2{puff} Inhale 2 [facility] 90 5-08 04-05 Puffs ity of mcg/actuati 00:00: 00:00 every 4 [place] on inhaler 00 :00 (four) Medical hours as Branch needed for Wheezing, Shortness of Breath, Bronchospa sm or Chest tightness. benzonatate 2020- No [id number] 200mg Take 1 [facility] 200 mg 08-20-05 capsule by ity of capsule 00:00: 00:00 mouth 3 [place] 00 :00 (three) Medical times Branch daily as needed for Cough. traMADol 2020- No [id number] 50mg Take 1 Un you (ULTRAM) 50 08-20-05 tablet by it y of mg tablet 00:00: 00:00 mouth [place] 00 :00 every 6 Medical (six) Branch hours as needed for Pain (scale 7-10). albuterol 2020- No [id number] 2{puff} Inhale 2 [facility] 90 08-20-05 Puffs ity of mcg/actuati 00:00: 00:00 every 4 [place] on inhaler 00 :00 (four) Medical hours as Branch needed for Wheezing, Shortness of Breath, Bronchospa sm or Chest tightness. Nitrofurant 2019- No [id number] 100mg Take 1 [facility] oin&Nit. 08-20-26 capsule by ity of Macrocryst 00:00: 00:00 mouth 2 [place] (MACROBID) 00 :00 (two) Medical 100 mg times Branch capsule daily. HYDROcodone 2020- No 1{tbl} 1 tablet, Univers -acetaminop 06-25 Oral, ONCE i ty of hen (NORCO) 01:15: 00:22 NOW, 1 [place] 10-325 mg 00 :00 dose, [place] Medic al tablet 1 06/25/19 at [facility] h tablet 2014, [place] dicyclomine Yes 20mg 20 mg, Univ ers (BENTYL) 3 Intramuscu ity o f injection 01:00: lar, QID, [place] 20 mg 00 First dose Medical on [place] Branch 06/25/19 at 2000, Until Discontinu ed, [place] hydralAZINE 2019- No 20mg 20 mg, Uni vers (APRESOLINE 06-25 Intravenou i ty of ) injection 00:45: 00:10 [place], ONCE [place] 20 mg 00 :00 NOW, 1 Medical dose, [facility] 06/25/19 at 1945, [place] metoclopram 2019- No 10mg 10 mg, Uni vers selena HCl 06-24 Slow IV ity of (REGLAN) 23:45: 22:48 Push, [place] injection 00 :00 ONCE, 1 Medical 10 mg dose, [facility] 06/25/19 at 1845, [place] ketorolac 2019- No 30mg 30 mg, Unive rs (TORADOL) 06-24 Slow IV ity of injection 23:45: 22:49 Push, [place] 30 mg 00 :00 ONCE, 1 Medical dose, [facility] 06/25/19 at 1845, [place]
Fa culty member approving Restricted medication : KIRTSIN RON NaCl 0.9% 2020- No 1000mL at 999 Uni vers (NS) bolus 06-24 mL/hr, ity of infusion 22:45: 01:01 1,000 mL, [place] 1,000 mL 00 :00 IV Medical Infusion, Branch ONCE, 1 dose, [facility] 06/25/19 at 1745, [place] maalox:diph 2019- 2020- No 15mL 15 mL, Uni vers enhydrAMINE 06-24 Oral, ity of :lidocaine 22:45: 22:52 ONCE, 1 [place] 2 % viscous 00 :00 dose, [place] Med ical 1:1:1 06/25/19 at [place] [facility] oral suspension 15 mL morpHINE 2019- No 4mg 4 mg, Slow Un you injection 4 06-19 IV Push, ity of mg 01:00: 00:10 ONCE, 1 [place] 00 :00 dose, Fri Medical 06/19/19 at [place] 1900, STAT maalox:diph 2019-0 2020- No 15mL 15 mL, Uni vers enhydrAMINE 06-19 Oral, ity of :lidocaine 01:00: 00:10 ONCE, 1 [place] 2 % viscous 00 :00 dose, Fri Med ical 1:1:1 06/19/19 at [place] (FIRST-MOUT 1900, [facility]) Routine oral suspension 15 mL famotidine [...] 4 mg, Slow Un you injection 4 06-1806 IV Push, ity of mg 22:30: 21:40 ONCE, 1 [place] 00 :00 dose, Fri Medical 06/19/19 at Branch 1630, STAT NaCl 0.9% 2020-0 2020- No 1000mL at 999 Uni vers (NS) bolus 06-18-06 mL/hr, ity of infusion 21:30: 23:56 1,000 mL, [place] 1,000 mL 00 :00 IV Medical Infusion, Branch ONCE, 1 dose, 06/19/19 at 1530, [place] ondansetron 2020-0 Yes [id number] 8mg Take 2 Univers 4 mg 3-06 tablets by ity of disintegrat 00:00: mouth [place] ing tablet 00 every 8 Medica l (eight) Branch hours as needed for Nausea and Vomiting (N/V). ondansetron 2020-0 Yes [id number] 8mg Take 2 Univers 4 mg 3-06 tablets by ity of disintegrat 00:00: mouth [place] ing tablet 00 every 8 Medica l (eight) Branch hours as needed for Nausea and Vomiting (N/V). ondansetron 2020-0 Yes [id number] 8mg Take 2 [facility] 4 mg 3-06 tablets by ity of disintegrat 00:00: mouth [place] ing tablet 00 every 8 Medica l (eight) Branch hours as needed for Nausea and Vomiting (N/V). ondansetron 2020-0 Yes [id number] 8mg Take 2 [facility] 4 mg 3-06 tablets by ity of disintegrat 00:00: mouth [place] ing tablet 00 every 8 Medica l (eight) Branch hours as needed for Nausea and Vomiting (N/V). ondansetron 2020-0 2020- No [id number] 8mg Take 2 [facility] 4 mg 3-06 10-26 tablets by ity of disintegrat 00:00: 00:00 mouth [place] ing tablet 00 :00 every 8 Medica l (eight) Branch hours as needed for Nausea and Vomiting (N/V). famotidine 2020-0 2020- No [id number] 40mg Take 1 Univers (PEPCID) 40 3-06 04-06 tablet by it y of mg tablet 00:00: 04:59 mouth [place] 00 :00 daily for Medical 30 days. [place] famotidine 2020-0 2020- No [id number] 40mg Take 1 Univers (PEPCID) 40 3-06 04-06 tablet by it y of mg tablet 00:00: 04:59 mouth [place] 00 :00 daily for Medical 30 days. [place] morpHINE 2020-0 2020- No 4mg 4 mg, Slow Un you injection 4 05-20-05 IV Push, ity of mg 04:15: 03:09 ONCE, 1 [place] 00 :00 dose, e Medical 05/19/19 at [place] 2215, STAT iohexol 2020-0 2020- No 120mL [...] ity of mg 02:15: 01:25 ONCE, 1 [place] 00 :00 dose, Tue Medical 05/19/19 at Branch 2014, STAT traMADol 2020-0 Yes [id number] 100mg Take 1 Un you 100 mg 24 2-04 tablet by ity o f hr tablet 00:00: mouth [place] 00 daily. Medical Branch ondansetron 2020-0 Yes [id number] 4mg Take 1 [facility] 4 mg 2-04 tablet by ity of disintegrat 00:00: mouth [place] ing tablet 00 every 8 Medica l (eight) Branch hours as needed for Nausea and Vomiting (N/V). ondansetron 2020-0 Yes [id number] 4mg Take 1 [facility] 4 mg 2-04 tablet by [facility] of disintegrat 00:00: mouth [place] ing tablet 00 every 8 Medica l (eight) Branch hours as needed for Nausea and Vomiting (N/V). ondansetron 2020-0 Yes [id number] 4mg Take 1 [facility] 4 mg 2-04 tablet by [facility] of disintegrat 00:00: mouth [place] ing tablet 00 every 8 Medica l (eight) Branch hours as needed for Nausea and Vomiting (N/V). ondansetron 2020-0 Yes [id number] 4mg Take 1 [facility] 4 mg 2-04 tablet by it[facility] of disintegrat 00:00: mouth [place] ing tablet 00 every 8 Medica l (eight) Branch hours as needed for Nausea and Vomiting (N/V). ondansetron 2020-0 Yes [id number] 4mg Take 1 [facility] 4 mg 2-04 tablet by ity of disintegrat 00:00: mouth [place] ing tablet 00 every 8 Medica l (eight) Branch hours as needed for Nausea and Vomiting (N/V). ondansetron 2020-0 Yes [id number] 4mg Take 1 [facility] 4 mg 2-04 tablet by ity of disintegrat 00:00: mouth [place] ing tablet 00 every 8 Medica l (eight) Branch hours as needed for Nausea and Vomiting (N/V). ondansetron 2020-0 Yes [id number] 4mg Take 1 [facility] 4 mg 2-04 tablet by ity of disintegrat 00:00: mouth [place] ing tablet 00 every 8 Medica l (eight) Branch hours as needed for Nausea and Vomiting (N/V). ondansetron 2020-0 Yes [id number] 4mg Take 1 [facility] 4 mg 2-04 tablet by ity of disintegrat 00:00: mouth [place] ing tablet 00 every 8 Medica l (eight) Branch hours as needed for Nausea and Vomiting (N/V). ondansetron 2020-0 Yes [id number] 4mg Take 1 [facility] 4 mg 2-04 tablet by ity of disintegrat 00:00: mouth [place] ing tablet 00 every 8 Medica l (eight) Branch hours as needed for Nausea and Vomiting (N/V). ondansetron 2020-0 Yes [id number] 4mg Take 1 [facility] 4 mg 2-04 tablet by ity of disintegrat 00:00: mouth [place] ing tablet 00 every 8 Medica l (eight) Branch hours as needed for Nausea and Vomiting (N/V). ondansetron 2020-0 Yes [id number] 4mg Take 1 [facility] 4 mg 2-04 tablet by ity of disintegrat 00:00: mouth [place] ing tablet 00 every 8 Medica l (eight) Branch hours as needed for Nausea and Vomiting (N/V). ondansetron 2020-0 Yes [id number] 4mg Take 1 [facility] 4 mg 2-04 tablet by ity of disintegrat 00:00: mouth [place] ing tablet 00 every 8 Medica l (eight) Branch hours as needed for Nausea and Vomiting (N/V). ondansetron 2020-0 Yes [id number] 4mg Take 1 [facility] 4 mg 2-04 tablet by ity of disintegrat 00:00: mouth [place] ing tablet 00 every 8 Medica l (eight) Branch hours as needed for Nausea and Vomiting (N/V). ondansetron 2020-0 Yes [id number] 4mg Take 1 [facility] 4 mg 2-04 tablet by ity of disintegrat 00:00: mouth [place] ing tablet 00 every 8 Medica l (eight) Branch hours as needed for Nausea and Vomiting (N/V). ondansetron 2020-0 Yes [id number] 4mg Take 1 [facility] 4 mg 2-04 tablet by ity of disintegrat 00:00: mouth [place] ing tablet 00 every 8 Medica l (eight) Branch hours as needed for Nausea and Vomiting (N/V). ondansetron 2020-0 Yes [id number] 4mg Take 1 [facility] 4 mg 2-04 tablet by ity of disintegrat 00:00: mouth [place] ing tablet 00 every 8 Medica l (eight) Branch hours as needed for Nausea and Vomiting (N/V). ondansetron 2020-0 Yes [id number] 4mg Take 1 [facility] 4 mg 2-04 tablet by ity of disintegrat 00:00: mouth [place] ing tablet 00 every 8 Medica l (eight) Branch hours as needed for Nausea and Vomiting (N/V). ondansetron 2020-0 Yes [id number] 4mg Take 1 [facility] 4 mg 2-04 tablet by ity of disintegrat 00:00: mouth [place] ing tablet 00 every 8 Medica l (eight) Branch hours as needed for Nausea and Vomiting (N/V). ondansetron 2020-0 Yes [id number] 4mg Take 1 [facility] 4 mg 2-04 tablet by ity of disintegrat 00:00: mouth [place] ing tablet 00 every 8 Medica l (eight) Branch hours as needed for Nausea and Vomiting (N/V). traMADol 2020-0 Yes [id number] 100mg Take 1 [facility] 100 mg 24 2-04 tablet by ity o f hr tablet 00:00: mouth [place] 00 daily. Medical Branch ondansetron 2020-0 Yes [id number] 4mg Take 1 [facility] 4 mg 2-04 tablet by [facility] of disintegrat 00:00: mouth [place] ing tablet 00 every 8 Medica l (eight) Branch hours as needed for Nausea and Vomiting (N/V). traMADol 2020-0 Yes [id number] 100mg Take 1 [facility] 100 mg 24 2-04 tablet by ity o f hr tablet 00:00: mouth [place] 00 daily. Medical Branch ondansetron 2020-0 Yes [id number] 4mg Take 1 [facility] 4 mg 2-04 tablet by [facility]y of disintegrat 00:00: mouth [place] ing tablet 00 every 8 Medica l (eight) Branch hours as needed for Nausea and Vomiting (N/V). traMADol 2020-0 Yes [id number] 100mg Take 1 [facility] 100 mg 24 2-04 tablet by ity o f hr tablet 00:00: mouth [place] 00 daily. Medical Branch ondansetron 2020-0 Yes [id number] 4mg Take 1 [facility] 4 mg 2-04 tablet by ity of disintegrat 00:00: mouth [place] ing tablet 00 every 8 Medica l (eight) Branch hours as needed for Nausea and Vomiting (N/V). traMADol 2020-0 Yes [id number] 100mg Take 1 [facility] 100 mg 24 2-04 tablet by ity o f hr tablet 00:00: mouth [place] 00 daily. Medical Branch ondansetron Yes [id number] 4mg Take 1 [facility] 4 mg 2-04 tablet by ity of disintegrat 00:00: mouth [place] ing tablet 00 every 8 Medica l (eight) Branch hours as needed for Nausea and Vomiting (N/V). traMADol Yes [id number] 100mg Take 1 [facility] 100 mg 24 2-04 tablet by ity o f hr tablet 00:00: mouth [place] 00 daily. Medical Branch ondansetron Yes [id number] 4mg Take 1 [facility] 4 mg 2-04 tablet by [facility]y of disintegrat 00:00: mouth [place] ing tablet 00 every 8 Medica l (eight) Branch hours as needed for Nausea and Vomiting (N/V). ondansetron 2020- No [id number] 4mg Take 1 [facility] 4 mg 2-04 04-05 tablet by [facility] disintegrat 00:00: 00:00 mouth [place] tablet 00 :00 every 8 Medica l (eight) Branch hours as needed for Nausea and Vomiting (N/V). ondansetron 2020- No [id number] 4mg Take 1 [facility] 4 mg 2-04 04-05 tablet by [facility] disintegrat 00:00: 00:00 [place] tablet 00 :00 every 8 [facility]ica l (eight) Branch hours as needed for Nausea and Vomiting (N/V). traMADol 2019- No [id number] 100mg Take 1 [facility] 100 mg [...] 44 (three) Medical times Branch daily. QUEtiapine 2019 Yes 300mg Take 300 Un you (SEROQUEL) [...] 3 it y of capsule 02:27: (three) [place] 44 times Medical daily. Branch meloxicam 2018-04 [...] 44 daily. Medical Branch ondansetron 2018-04 Yes [id number] 4mg Take 1 [facility] 4 mg tablet 0-26 tablet by ity of 00:00: mouth [place] 00 every 8 Medical (eight) Branch hours as needed for Nausea and Vomiting (N/V). ondansetron 2018-04 Yes [id number] 4mg Take 1 [facility] 4 mg tablet 0-26 tablet by ity of 00:00: mouth [place] 00 every 8 Medical (eight) Branch hours as needed for Nausea and Vomiting (N/V). ondansetron 2018-04 Yes [id number] 4mg Take 1 [facility] 4 mg tablet 0-26 tablet by ity of 00:00: mouth [place] 00 every 8 Medical (eight) Branch hours as needed for Nausea and Vomiting (N/V). ondansetron 2018-04 Yes [id number] 4mg Take 1 [facility] 4 mg tablet 0-26 tablet by ity of 00:00: mouth [place] 00 every 8 Medical (eight) Branch hours as needed for Nausea and Vomiting (N/V). ondansetron 2018-04 Yes [id number] 4mg Take 1 [facility] 4 mg tablet 0-26 tablet by ity of 00:00: mouth [place] 00 every 8 Medical (eight) Branch hours as needed for Nausea and Vomiting (N/V). ondansetron 2018-04 Yes [id number] 4mg Take 1 [facility] 4 mg tablet 0-26 tablet by ity of 00:00: mouth [place] 00 every 8 Medical (eight) Branch hours as needed for Nausea and Vomiting (N/V). ondansetron 2018-04 2020- No [id number] 4mg Take 1 [facility] 4 mg tablet 0-26 10-26 tablet by it y of 00:00: 00:00 mouth [place] 00 :00 every 8 Medical (eight) Branch hours as needed for Nausea and Vomiting (N/V). losartan Yes [id number] 100mg Take 1 [facility] 100 mg 9-23 tablet by ity of tablet 00:00: mouth [place] 00 daily. Medical Branch losartan Yes [id number] 100mg Take 1 [facility] 100 mg 9-23 tablet by ity of tablet 00:00: mouth [place] 00 daily. Medical Branch losartan Yes [id number] 100mg Take 1 [facility] 100 mg 9-23 tablet by ity of tablet 00:00: mouth [place] 00 daily. Medical Branch losartan 2018- Yes [id number] 100mg Take 1 [facility] 100 mg 9-23 tablet by ity of tablet 00:00: mouth [place] 00 daily. Medical Branch losartan 2018- Yes [id number] 100mg Take 1 [facility] 100 mg 9-23 tablet by ity of tablet 00:00: mouth [place] 00 daily. Medical Branch losartan 2018- Yes [id number] 100mg Take 1 [facility] 100 mg 9-23 tablet by ity of tablet 00:00: mouth [place] 00 daily. Medical Branch losartan 2019-0 Yes [id number] 100mg Take 1 [facility] 100 mg 9-23 tablet by ity of tablet 00:00: mouth [place] 00 daily. Medical Branch losartan 2019-0 Yes [id number] 100mg Take 1 [facility] 100 mg 9-23 tablet by ity of tablet 00:00: mouth [place] 00 daily. Medical Branch losartan 2019-0 Yes [id number] 100mg Take 1 [facility] 100 mg 9-23 tablet by ity of tablet 00:00: mouth [place] 00 daily. Medical Branch losartan 2018-0 Yes [id number] 100mg Take 1 [facility] 100 mg 9-23 tablet by ity of tablet 00:00: mouth [place] 00 daily. Medical Branch losartan 2018-0 Yes [id number] 100mg Take 1 [facility] 100 mg 9-23 tablet by ity of tablet 00:00: mouth [place] 00 daily. Medical Branch losartan 2019-0 Yes [id number] 100mg Take 1 [facility] 100 mg 9-23 tablet by ity of tablet 00:00: mouth [place] 00 daily. Medical Branch losartan 2019-0 Yes [id number] 100mg Take 1 [facility] 100 mg 9-23 tablet by ity of tablet 00:00: mouth [place] 00 daily. Medical Branch losartan 2019-0 Yes [id number] 100mg Take 1 [facility] 100 mg 9-23 tablet by ity of tablet 00:00: mouth [place] 00 daily. Medical Branch losartan 2019-0 Yes [id number] 100mg Take 1 [facility] 100 mg 9-23 tablet by ity of tablet 00:00: mouth [place] 00 daily. Medical Branch losartan 2019-0 Yes [id number] 100mg Take 1 [facility] 100 mg 9-23 tablet by ity of tablet 00:00: mouth [place] 00 daily. Medical Branch losartan 2019-0 Yes [id number] 100mg Take 1 [facility] 100 mg 9-23 tablet by ity of tablet 00:00: mouth [place] 00 daily. Medical Branch losartan 2019-0 Yes [id number] 100mg Take 1 [facility] 100 mg 9-23 tablet by ity of tablet 00:00: mouth [place] 00 daily. Medical Branch losartan 2019-0 Yes [id number] 100mg Take 1 [facility] 100 mg 9-23 tablet by ity of tablet 00:00: mouth [place] 00 daily. Medical Branch losartan 2019-0 Yes [id number] 100mg Take 1 [facility] 100 mg 9-23 tablet by ity of tablet 00:00: mouth [place] 00 daily. Medical Branch losartan Yes [id number] 100mg Take 1 [facility] 100 mg 9-23 tablet by ity of tablet 00:00: mouth [place] 00 daily. Medical Branch losartan Yes [id number] 100mg Take 1 [facility] 100 mg 9-23 tablet by ity of tablet 00:00: mouth [place] 00 daily. Medical Branch losartan Yes [id number] 100mg Take 1 [facility] 100 mg 9-23 tablet by ity of tablet 00:00: mouth [place] 00 daily. Medical Branch losartan Yes [id number] 100mg Take 1 [facility] 100 mg 9-23 tablet by ity of tablet 00:00: mouth [place] 00 daily. Medical Branch losartan 2020- No [id number] 100mg Take 1 [facility] nivers 100 mg 9-23 04-05 tablet by ity of tablet 00:00: 00:00 mouth [place] 00 :00 daily. Medical Branch losartan 2020- No [id number] 100mg Take 1 [facility] nivers 100 mg 9-23 04-05 tablet by ity of tablet 00:00: 00:00 mouth [place] 00 :00 daily. Medical Branch traMADol 50 Yes [id number] 1 by mouth [facility] mg tablet 12-05 [id number] every 4-6 ity of 00:00: hours as [place] 00 needed for Medical pain Branch traMADol 50 Yes [id number] 1 by mouth [facility] mg tablet 12-05 [id number] every 4-6 ity of 00:00: hours as [place] 00 needed for Medical pain Branch traMADol 50 Yes [id number] 1 by mouth [facility] mg tablet 12-05 [id number] every 4-6 ity of 00:00: hours as [place] 00 needed for Medical pain Branch traMADol 50 Yes [id number] 1 by mouth [facility] mg tablet - [id number] every 4-6 ity of 00:00: hours as [place] 00 needed for Medical pain Branch traMADol 50 Yes [id number] 1 by mouth [facility] mg tablet - [id number] every 4-6 ity of 00:00: hours as [place] 00 needed for Medical pain Branch traMADol 50 Yes [id number] 1 by mouth [facility] mg tablet - [id number] every 4-6 ity of 00:00: hours as [place] 00 needed for Medical pain Branch traMADol 50 2019-0 Yes [id number] 1 by mouth [facility] mg tablet 8- [id number] every 4-6 ity of 00:00: hours as [place] 00 needed for Medical pain Branch traMADol 50 2019-0 Yes [id number] 1 by mouth [facility] mg tablet - [id number] every 4-6 ity of 00:00: hours as [place] 00 needed for Medical pain Branch traMADol 50 2019-0 Yes [id number] 1 by mouth [facility] mg tablet 12-05 [id number] every 4-6 ity of 00:00: hours as [place] 00 needed for Medical pain Branch traMADol 50 2019-0 Yes [id number] 1 by mouth [facility] mg tablet - [id number] every 4-6 ity of 00:00: hours as [place] 00 needed for Medical pain Branch traMADol 50 2019-0 Yes [id number] 1 by mouth [facility] mg tablet 12-05 [id number] every 4-6 ity of 00:00: hours as [place] 00 needed for Medical pain Branch traMADol 50 2019-0 Yes [id number] 1 by mouth [facility] mg tablet 12-05 [id number] every 4-6 ity of 00:00: hours as [place] 00 needed for Medical pain Branch traMADol 50 2019-0 Yes [id number] 1 by mouth [facility] mg tablet 12-05 [id number] every 4-6 ity of 00:00: hours as [place] 00 needed for Medical pain Branch traMADol 50 2019-0 Yes [id number] 1 by mouth [facility] mg tablet 12-05 [id number] every 4-6 ity of 00:00: hours as [place] 00 needed for Medical pain Branch traMADol 50 2019-0 Yes [id number] 1 by mouth [facility] mg tablet - [id number] every 4-6 ity of 00:00: hours as [place] 00 needed for Medical pain Branch traMADol 50 2019-0 Yes [id number] 1 by mouth [facility] mg tablet 8- [id number] every 4-6 ity of 00:00: hours as [place] 00 needed for Medical pain Branch traMADol 50 2019-0 Yes [id number] 1 by mouth [facility] mg tablet 8- [id number] every 4-6 ity of 00:00: hours as [place] 00 needed for Medical pain Branch traMADol 50 2019-0 2020- No [id number] 1 by mouth [facility] mg tablet 12-05 [id number] every 4-6 it y of 00:00: 00:00 [...] ity of mg 22:45: 22:26 ONCE, 1 [place] 00 :00 dose, [facility] Medical 12/01/18 at Branch 1745, Routine ketorolac 2018- No 30mg 30 mg, Unive rs (TORADOL) 12-01 Slow IV ity of injection 20:45: 19:47 [place], [place] 30 mg 00 :00 ONCE, 1 Medical dose, [facility] Branch 12/01/18 at 1545, [place]
Fa culty [...] s tablet 24 bedtime. Medical Branch diazepam 2018-0 Yes 1mg Take 1 mg [facility] ers [...] :00 ONCE, 1 Medical 75 mcg dose, [facility] 11/16/18 at 2115, [place] pantoprazol 2018- Yes [id number] 40mg Take 1 [facility] e 40 mg EC 8-05 tablet by ity of tablet 00:00: mouth 2 [place] 00 (two) Medical times Branch daily. proMETHazin 2018- Yes [id number] 25mg Take 1 [facility] e 25 mg 8-05 tablet by ity of tablet 00:00: mouth [place] 00 every 6 Medical (six) Branch hours as needed for N/V alternatin g with Ondansetro n. HYDROcodone 2018-0 Yes [id number] 1{tbl} Take 1 [facility] -acetaminop 8-05 tablet by ity of hen 7.5-325 00:00: mouth [place] mg per 00 every 6 Medical tablet (six) Branch hours as needed (Pain scal 7-10). pantoprazol Yes [id number] 40mg Take 1 [facility] e 40 mg EC 8-05 tablet by ity of tablet 00:00: mouth 2 [place] 00 (two) Medical times Branch daily. proMETHazin Yes [id number] 25mg Take 1 [facility] e 25 mg 8-05 tablet by ity of tablet 00:00: mouth [place] 00 every 6 Medical (six) Branch hours as needed for N/V alternatin g with Ondansetro n. HYDROcodone Yes [id number] 1{tbl} Take 1 [facility] -acetaminop 8-05 tablet by ity of hen 7.5-325 00:00: mouth [place] mg per 00 every 6 Medical tablet (six) Branch hours as needed (Pain scal 7-10). pantoprazol Yes [id number] 40mg Take 1 [facility] e 40 mg EC 8-05 tablet by ity of tablet 00:00: mouth 2 (two) Medical times Branch daily. proMETHazin Yes [id number] 25mg Take 1 [facility] e 25 mg 8-05 tablet by ity of tablet 00:00: mouth [place] 00 every 6 Medical (six) Branch hours as needed for N/V alternatin g with Ondansetro n. HYDROcodone Yes [id number] 1{tbl} Take 1 [facility] -acetaminop 8-05 tablet by ity of hen 7.5-325 00:00: mouth [place] mg per 00 every 6 Medical tablet (six) Branch hours as needed (Pain scal 7-10). pantoprazol Yes [id number] 40mg Take 1 [facility] e 40 mg EC 8-05 tablet by ity of tablet 00:00: mouth 2 [place] 00 (two) Medical times Branch daily. proMETHazin Yes [id number] 25mg Take 1 [facility] e 25 mg 8-05 tablet by ity of tablet 00:00: mouth [place] 00 every 6 Medical (six) Branch hours as needed for N/V alternatin g with Ondansetro n. HYDROcodone Yes [id number] 1{tbl} Take 1 [facility] -acetaminop 8-05 tablet by ity of hen 7.5-325 00:00: mouth [place] mg per 00 every 6 Medical tablet (six) Branch hours as needed (Pain scal 7-10). pantoprazol 2019- Yes [id number] 40mg Take 1 [facility] e 40 mg EC 8-05 tablet by ity of tablet 00:00: mouth 2 [place] 00 (two) Medical times Branch daily. proMETHazin Yes [id number] 25mg Take 1 [facility] e 25 mg 8-05 tablet by ity of tablet 00:00: mouth [place] 00 every 6 Medical (six) Branch hours as needed for N/V alternatin g with Ondansetro n. HYDROcodone 2018- Yes [id number] 1{tbl} Take 1 [facility] -acetaminop 8-05 tablet by ity of hen 7.5-325 00:00: mouth [place] mg per 00 every 6 Medical tablet (six) Branch hours as needed (Pain scal 7-10). pantoprazol Yes [id number] 40mg Take 1 [facility] e 40 mg EC 8-05 tablet by ity of tablet 00:00: mouth 2 [place] 00 (two) Medical times Branch daily. proMETHazin Yes [id number] 25mg Take 1 [facility] e 25 mg 8-05 tablet by ity of tablet 00:00: mouth [place] 00 every 6 Medical (six) Branch hours as needed for N/V alternatin g with Ondansetro n. HYDROcodone 2018- Yes [id number] 1{tbl} Take 1 [facility] -acetaminop 8-05 tablet by ity of hen 7.5-325 00:00: mouth [place] mg per 00 every 6 Medical tablet (six) Branch hours as needed (Pain scal 7-10). pantoprazol 2018- Yes [id number] 40mg Take 1 [facility] e 40 mg EC 8-05 tablet by ity of tablet 00:00: mouth 2 [place] 00 (two) Medical times Branch daily. proMETHazin Yes [id number] 25mg Take 1 [facility] e 25 mg 8-05 tablet by ity of tablet 00:00: mouth [place] 00 every 6 Medical (six) Branch hours as needed for N/V alternatin g with Ondansetro n. HYDROcodone 2018- Yes [id number] 1{tbl} Take 1 [facility] -acetaminop 8-05 tablet by ity of hen 7.5-325 00:00: mouth [place] mg per 00 every 6 Medical tablet (six) Branch hours as needed (Pain scal 7-10). pantoprazol Yes [id number] 40mg Take 1 [facility] e 40 mg EC 8-05 tablet by ity of tablet 00:00: mouth 2 [place] 00 (two) Medical times Branch daily. proMETHazin Yes [id number] 25mg Take 1 [facility] e 25 mg 8-05 tablet by ity of tablet 00:00: mouth [place] 00 every 6 Medical (six) Branch hours as needed for N/V alternatin g with Ondansetro n. HYDROcodone Yes [id number] 1{tbl} Take 1 [facility] -acetaminop 8-05 tablet by ity of hen 7.5-325 00:00: mouth [place] mg per 00 every 6 Medical tablet (six) Branch hours as needed (Pain scal 7-10). pantoprazol Yes [id number] 40mg Take 1 [facility] e 40 mg EC 8-05 tablet by ity of tablet 00:00: mouth 2 [place] 00 (two) Medical times Branch daily. proMETHazin Yes [id number] 25mg Take 1 [facility] e 25 mg 8-05 tablet by ity of tablet 00:00: mouth [place] 00 every 6 Medical (six) Branch hours as needed for N/V alternatin g with Ondansetro n. HYDROcodone Yes [id number] 1{tbl} Take 1 [facility] -acetaminop 8-05 tablet by ity of hen 7.5-325 00:00: mouth [place] mg per 00 every 6 Medical tablet (six) Branch hours as needed (Pain scal 7-10). pantoprazol Yes [id number] 40mg Take 1 [facility] e 40 mg EC 8-05 tablet by ity of tablet 00:00: mouth 2 [place] 00 (two) Medical times Branch daily. proMETHazin Yes [id number] 25mg Take 1 [facility] e 25 mg 8-05 tablet by ity of tablet 00:00: mouth [place] 00 every 6 Medical (six) Branch hours as needed for N/V alternatin g with Ondansetro n. HYDROcodone Yes [id number] 1{tbl} Take 1 [facility] -acetaminop 8-05 tablet by ity of hen 7.5-325 00:00: mouth [place] mg per 00 every 6 Medical tablet (six) Branch hours as needed (Pain scal 7-10). pantoprazol Yes [id number] 40mg Take 1 [facility] e 40 mg EC 8-05 tablet by ity of tablet 00:00: mouth 2 [place] 00 (two) Medical times Branch daily. proMETHazin Yes [id number] 25mg Take 1 [facility] e 25 mg 8-05 tablet by ity of tablet 00:00: mouth [place] 00 every 6 Medical (six) Branch hours as needed for N/V alternatin g with Ondansetro n. HYDROcodone Yes [id number] 1{tbl} Take 1 [facility] -acetaminop 8-05 tablet by ity of hen 7.5-325 00:00: mouth [place] mg per 00 every 6 Medical tablet (six) Branch hours as needed (Pain scal 7-10). pantoprazol Yes [id number] 40mg Take 1 [facility] e 40 mg EC 8-05 tablet by ity of tablet 00:00: mouth 2 [place] 00 (two) Medical times Branch daily. proMETHazin Yes [id number] 25mg Take 1 [facility] e 25 mg 8-05 tablet by ity of tablet 00:00: mouth [place] 00 every 6 Medical (six) Branch hours as needed for N/V alternatin g with Ondansetro n. HYDROcodone Yes [id number] 1{tbl} Take 1 [facility] -acetaminop 8-05 tablet by ity of hen 7.5-325 00:00: mouth [place] mg per 00 every 6 Medical tablet (six) Branch hours as needed (Pain scal 7-10). pantoprazol Yes [id number] 40mg Take 1 [facility] e 40 mg EC 8-05 tablet by ity of tablet 00:00: mouth 2 [place] 00 (two) Medical times Branch daily. proMETHazin Yes [id number] 25mg Take 1 [facility] e 25 mg 8-05 tablet by ity of tablet 00:00: mouth [place] 00 every 6 Medical (six) Branch hours as needed for N/V alternatin g with Ondansetro n. HYDROcodone Yes [id number] 1{tbl} Take 1 [facility] -acetaminop 8-05 tablet by ity of hen 7.5-325 00:00: mouth [place] mg per 00 every 6 Medical tablet (six) Branch hours as needed (Pain scal 7-10). pantoprazol 2018- Yes [id number] 40mg Take 1 [facility] e 40 mg EC 8-05 tablet by ity of tablet 00:00: mouth 2 [place] 00 (two) Medical times Branch daily. proMETHazin Yes [id number] 25mg Take 1 [facility] e 25 mg 8-05 tablet by ity of tablet 00:00: mouth [place] 00 every 6 Medical (six) Branch hours as needed for N/V alternatin g with Ondansetro n. HYDROcodone Yes [id number] 1{tbl} Take 1 [facility] -acetaminop 8-05 tablet by ity of hen 7.5-325 00:00: mouth [place] mg per 00 every 6 Medical tablet (six) Branch hours as needed (Pain scal 7-10). pantoprazol Yes [id number] 40mg Take 1 [facility] e 40 mg EC 8-05 tablet by ity of tablet 00:00: mouth 2 [place] 00 (two) Medical times Branch daily. proMETHazin Yes [id number] 25mg Take 1 [facility] e 25 mg 8-05 tablet by ity of tablet 00:00: mouth [place] 00 every 6 Medical (six) Branch hours as needed for N/V alternatin g with Ondansetro n. HYDROcodone Yes [id number] 1{tbl} Take 1 [facility] -acetaminop 8-05 tablet by ity of hen 7.5-325 00:00: mouth [place] mg per 00 every 6 Medical tablet (six) Branch hours as needed (Pain scal 7-10). pantoprazol Yes [id number] 40mg Take 1 [facility] e 40 mg EC 8-05 tablet by ity of tablet 00:00: mouth 2 [place] 00 (two) Medical times Branch daily. proMETHazin Yes [id number] 25mg Take 1 [facility] e 25 mg 8-05 tablet by ity of tablet 00:00: mouth [place] 00 every 6 Medical (six) Branch hours as needed for N/V alternatin g with Ondansetro n. HYDROcodone 2018- Yes [id number] 1{tbl} Take 1 [facility] -acetaminop 8-05 tablet by ity of hen 7.5-325 00:00: mouth [place] mg per 00 every 6 Medical tablet (six) Branch hours as needed (Pain scal 7-10). pantoprazol Yes [id number] 40mg Take 1 [facility] e 40 mg EC 8-05 tablet by ity of tablet 00:00: mouth 2 [place] 00 (two) Medical times Branch daily. proMETHazin Yes [id number] 25mg Take 1 [facility] e 25 mg 8-05 tablet by ity of tablet 00:00: mouth [place] 00 every 6 Medical (six) Branch hours as needed for N/V alternatin g with Ondansetro n. HYDROcodone Yes [id number] 1{tbl} Take 1 [facility] -acetaminop 8-05 tablet by ity of hen 7.5-325 00:00: mouth [place] mg per 00 every 6 Medical tablet (six) Branch hours as needed (Pain scal 7-10). pantoprazol Yes [id number] 40mg Take 1 [facility] e 40 mg EC 8-05 tablet by ity of tablet 00:00: mouth 2 [place] 00 (two) Medical times Branch daily. proMETHazin Yes [id number] 25mg Take 1 [facility] e 25 mg 8-05 tablet by ity of tablet 00:00: mouth [place] 00 every 6 Medical (six) Branch hours as needed for N/V alternatin g with Ondansetro n. HYDROcodone Yes [id number] 1{tbl} Take 1 [facility] -acetaminop 8-05 tablet by ity of hen 7.5-325 00:00: mouth [place] mg per 00 every 6 Medical tablet (six) Branch hours as needed (Pain scal 7-10). pantoprazol Yes [id number] 40mg Take 1 [facility] e 40 mg EC 8-05 tablet by ity of tablet 00:00: mouth 2 [place] 00 (two) Medical times Branch daily. proMETHazin Yes [id number] 25mg Take 1 [facility] e 25 mg 8-05 tablet by ity of tablet 00:00: mouth [place] 00 every 6 Medical (six) Branch hours as needed for N/V alternatin g with Ondansetro n. HYDROcodone Yes [id number] 1{tbl} Take 1 [facility] -acetaminop 8-05 tablet by ity of hen 7.5-325 00:00: mouth [place] mg per 00 every 6 Medical tablet (six) Branch hours as needed (Pain scal 7-10). HYDROcodone Yes [id number] 1{tbl} Take 1 [facility] -acetaminop 8-05 tablet by ity of hen 7.5-325 00:00: mouth [place] mg per 00 every 6 Medical tablet (six) Branch hours as needed (Pain scal 7-10). HYDROcodone Yes [id number] 1{tbl} Take 1 [facility] -acet[facility]op 8-05 tablet by [facility] 7.5-325 00:00: mouth [place] mg per 00 every 6 Medical tablet (six) Branch hours as needed (Pain scal 7-10). HYDROcodone Yes [id number] 1{tbl} Take 1 [facility] -acetaminop 8-05 tablet by [facility] hen 7.5-325 00:00: mouth [place] mg per 00 every 6 Medical tablet (six) Branch hours as needed (Pain scal 7-10). HYDROcodone Yes [id number] 1{tbl} Take 1 [facility] -acetaminop 8-05 tablet by [facility] of hen 7.5-325 00:00: mouth [place] mg per 00 every 6 Medical tablet (six) Branch hours as needed (Pain scal 7-10). HYDROcodone Yes [id number] 1{tbl} Take 1 [facility] -acetaminop 8-05 tablet by [facility] of hen 7.5-325 00:00: mouth [place] mg per 00 every 6 Medical tablet (six) Branch hours as needed (Pain scal 7-10). HYDROcodone Yes [id number] 1{tbl} Take 1 [facility] -acetaminop 8-05 tablet by [facility] of hen 7.5-325 00:00: mouth [place] mg per 00 every 6 Medical tablet (six) Branch hours as needed (Pain scal 7-10). HYDROcodone Yes [id number] 1{tbl} Take 1 [facility] -acetaminop 8-05 tablet by [facility] of hen 7.5-325 00:00: mouth [place] mg per 00 every 6 Medical tablet (six) Branch hours as needed (Pain scal 7-10). HYDROcodone Yes [id number] 1{tbl} Take 1 [facility] -acetaminop 8-05 tablet by [facility]y of hen 7.5-325 00:00: mouth [place] mg per 00 every 6 Medical tablet (six) Branch hours as needed (Pain scal 7-10). HYDROcodone Yes [id number] 1{tbl} Take 1 [facility] -acetaminop 8-05 tablet by [facility] of hen 7.5-325 00:00: mouth [place] mg per 00 every 6 Medical tablet (six) Branch hours as needed (Pain scal 7-10). HYDROcodone Yes [id number] 1{tbl} Take 1 [facility] -acetaminop 8-05 tablet by [facility] of hen 7.5-325 00:00: mouth [place] mg per 00 every 6 Medical tablet (six) Branch hours as needed (Pain scal 7-10). HYDROcodone Yes [id number] 1{tbl} Take 1 [facility] -acetaminop 8-05 tablet by [facility] of hen 7.5-325 00:00: mouth [place] mg per 00 every 6 Medical tablet (six) Branch hours as needed (Pain scal 7-10). HYDROcodone Yes [id number] 1{tbl} Take 1 [facility] -acetaminop 8-05 tablet by [facility] of hen 7.5-325 00:00: mouth [place] mg per 00 every 6 Medical tablet (six) Branch hours as needed (Pain scal 7-10). HYDROcodone Yes [id number] 1{tbl} Take 1 [facility] -acetaminop 8-05 tablet by [facility] of hen 7.5-325 00:00: mouth [place] mg per 00 every 6 Medical tablet (six) Branch hours as needed (Pain scal 7-10). HYDROcodone Yes [id number] 1{tbl} Take 1 [facility] -acetaminop 8-05 tablet by [facility] of hen 7.5-325 00:00: mouth [place] mg per 00 every 6 Medical tablet (six) Branch hours as needed (Pain scal 7-10). HYDROcodone Yes [id number] 1{tbl} Take 1 [facility] -acetaminop 8-05 tablet by [facility] of hen 7.5-325 00:00: mouth [place] mg per 00 every 6 Medical tablet (six) Branch hours as needed (Pain scal 7-10). HYDROcodone Yes [id number] 1{tbl} Take 1 [facility] -acetaminop 8-05 tablet by [facility] of hen 7.5-325 00:00: mouth [place] mg per 00 every 6 Medical tablet (six) Branch hours as needed (Pain scal 7-10). HYDROcodone Yes [id number] 1{tbl} Take 1 [facility] -acetaminop 8-05 tablet by [facility] of hen 7.5-325 00:00: mouth [place] mg per 00 every 6 Medical tablet (six) Branch hours as needed (Pain scal 7-10). HYDROcodone Yes [id number] 1{tbl} Take 1 [facility] -acetaminop 8-05 tablet by [facility] of hen 7.5-325 00:00: mouth [place] mg per 00 every 6 Medical tablet (six) Branch hours as needed (Pain scal 7-10). HYDROcodone Yes [id number] 1{tbl} Take 1 [facility] -acetaminop 8-05 tablet by [facility] of hen 7.5-325 00:00: mouth [place] mg per 00 every 6 Medical tablet (six) Branch hours as needed (Pain scal 7-10). HYDROcodone Yes [id number] 1{tbl} Take 1 [facility] -acetaminop 8-05 tablet by [facility] of hen 7.5-325 00:00: mouth [place] mg per 00 every 6 Medical tablet (six) Branch hours as needed (Pain scal 7-10). HYDROcodone Yes [id number] 1{tbl} Take 1 [facility] -acetaminop 8-05 tablet by [facility] of hen 7.5-325 00:00: mouth [place] mg per 00 every 6 Medical tablet (six) Branch hours as needed (Pain scal 7-10). HYDROcodone Yes [id number] 1{tbl} Take 1 [facility] -acetaminop 8-05 tablet by [facility] of hen 7.5-325 00:00: mouth [place] mg per 00 every 6 Medical tablet (six) Branch hours as needed (Pain scal 7-10). HYDROcodone Yes [id number] 1{tbl} Take 1 [facility] -acetaminop 8-05 tablet by [facility] of hen 7.5-325 00:00: mouth [place] mg per 00 every 6 Medical tablet (six) Branch hours as needed (Pain scal 7-10). HYDROcodone Yes [id number] 1{tbl} Take 1 [facility] -acetaminop 8-05 tablet by [facility] of hen 7.5-325 00:00: mouth [place] mg per 00 every 6 Medical tablet (six) Branch hours as needed (Pain scal 7-10). HYDROcodone Yes [id number] 1{tbl} Take 1 [facility] -acetaminop 8-05 tablet by [facility] hen 7.5-325 00:00: mouth [place] mg per 00 every 6 Medical tablet (six) Branch hours as needed (Pain scal 7-10). HYDROcodone Yes [id number] 1{tbl} Take 1 [facility] -acetaminop 8-05 tablet by [facility] of hen 7.5-325 00:00: mouth [place] mg per 00 every 6 Medical tablet (six) Branch hours as needed (Pain scal 7-10). HYDROcodone Yes [id number] 1{tbl} Take 1 [facility] -acetaminop 8-05 tablet by [facility] of hen 7.5-325 00:00: mouth [place] mg per 00 every 6 Medical tablet (six) Branch hours as needed (Pain scal 7-10). HYDROcodone Yes [id number] 1{tbl} Take 1 [facility] -acetaminop 8-05 tablet by [facility] of hen 7.5-325 00:00: mouth [place] mg per 00 every 6 Medical tablet (six) Branch hours as needed (Pain scal 7-10). HYDROcodone Yes [id number] 1{tbl} Take 1 [facility] -acetaminop 8-05 tablet by [facility] of hen 7.5-325 00:00: mouth [place] mg per 00 every 6 Medical tablet (six) Branch hours as needed (Pain scal 7-10). HYDROcodone Yes [id number] 1{tbl} Take 1 [facility] -acetaminop 8-05 tablet by [facility] of hen 7.5-325 00:00: mouth [place] mg per 00 every 6 Medical tablet (six) Branch hours as needed (Pain scal 7-10). HYDROcodone Yes [id number] 1{tbl} Take 1 [facility] -acetaminop 8-05 tablet by [facility] of hen 7.5-325 00:00: mouth [place] mg per 00 every 6 Medical tablet (six) Branch hours as needed (Pain scal 7-10). HYDROcodone Yes [id number] 1{tbl} Take 1 [facility] -acetaminop 8-05 tablet by [facility] of hen 7.5-325 00:00: mouth [place] mg per 00 every 6 Medical tablet (six) Branch hours as needed (Pain scal 7-10). HYDROcodone Yes [id number] 1{tbl} Take 1 [facility] -acetaminop 8-05 tablet by [facility] of hen 7.5-325 00:00: mouth [place] mg per 00 every 6 Medical tablet (six) Branch hours as needed (Pain scal 7-10). HYDROcodone Yes [id number] 1{tbl} Take 1 [facility] -acetaminop 8-05 tablet by [facility] of hen 7.5-325 00:00: mouth [place] mg per 00 every 6 Medical tablet (six) Branch hours as needed (Pain scal 7-10). HYDROcodone Yes [id number] 1{tbl} Take 1 [facility] -acetaminop 8-05 tablet by [facility] of hen 7.5-325 00:00: mouth [place] mg per 00 every 6 Medical tablet (six) Branch hours as needed (Pain scal 7-10). HYDROcodone Yes [id number] 1{tbl} Take 1 [facility] -acetaminop 8-05 tablet by [facility] of hen 7.5-325 00:00: mouth [place] mg per 00 every 6 Medical tablet (six) Branch hours as needed (Pain scal 7-10). HYDROcodone Yes [id number] 1{tbl} Take 1 [facility] -acetaminop 8-05 tablet by [facility] of hen 7.5-325 00:00: mouth [place] mg per 00 every 6 Medical tablet (six) Branch hours as needed (Pain scal 7-10). pantoprazol Yes [id number] 40mg Take 1 [facility] e 40 mg EC 8-05 tablet by ity of tablet 00:00: mouth 2 [place] 00 (two) Medical times Branch daily. ondansetron Yes [id number] 4mg Take 1 [facility] 4 mg tablet 8-05 tablet by ity of 00:00: mouth [place] 00 every 8 Medical (eight) Branch hours as needed for Nausea and Vomiting (N/V). proMETHazin 2018- Yes [id number] 25mg Take 1 [facility] e 25 mg 8-05 tablet by ity of tablet 00:00: mouth [place] 00 every 6 Medical (six) Branch hours as needed for N/V alternatin g with Ondansetro n. HYDROcodone 2018- Yes [id number] 1{tbl} Take 1 [facility] -acetaminop 8-05 tablet by [facility] of hen 7.5-325 00:00: mouth [place] mg per 00 every 6 Medical tablet (six) Branch hours as needed (Pain scal 7-10). pantoprazol Yes [id number] 40mg Take 1 [facility] e 40 mg EC 8-05 tablet by ity of tablet 00:00: mouth 2 [place] 00 (two) Medical times Branch daily. ondansetron 2018- Yes [id number] 4mg Take 1 [facility] 4 mg tablet 8-05 tablet by ity of 00:00: mouth [place] 00 every 8 Medical (eight) Branch hours as needed for Nausea and Vomiting (N/V). proMETHazin Yes [id number] 25mg Take 1 [facility] e 25 mg 8-05 tablet by ity of tablet 00:00: mouth [place] 00 every 6 Medical (six) Branch hours as needed for N/V alternatin g with Ondansetro n. HYDROcodone Yes [id number] 1{tbl} Take 1 [facility] -acetaminop 8-05 tablet by [facility]y of hen 7.5-325 00:00: mouth [place] mg per 00 every 6 Medical tablet (six) Branch hours as needed (Pain scal 7-10). pantoprazol 2018- Yes [id number] 40mg Take 1 [facility] e 40 mg EC 8-05 tablet by ity of tablet 00:00: mouth 2 [place] 00 (two) Medical times Branch daily. ondansetron 2018-0 Yes [id number] 4mg Take 1 [facility] 4 mg tablet 8-05 tablet by ity of 00:00: mouth [place] 00 every 8 Medical (eight) Branch hours as needed for Nausea and Vomiting (N/V). proMETHazin 2018- Yes [id number] 25mg Take 1 [facility] e 25 mg 8-05 tablet by ity of tablet 00:00: mouth [place] 00 every 6 Medical (six) Branch hours as needed for N/V alternatin g with Ondansetro n. HYDROcodone Yes [id number] 1{tbl} Take 1 [facility] -acetaminop 8-05 tablet by [facility] of hen 7.5-325 00:00: mouth [place] mg per 00 every 6 Medical tablet (six) Branch hours as needed (Pain scal 7-10). pantoprazol Yes [id number] 40mg Take 1 [facility] e 40 mg EC 8-05 tablet by ity of tablet 00:00: mouth 2 [place] 00 (two) Medical times Branch daily. ondansetron Yes [id number] 4mg Take 1 [facility] 4 mg tablet 8-05 tablet by ity of 00:00: mouth [place] 00 every 8 Medical (eight) Branch hours as needed for Nausea and Vomiting (N/V). proMETHazin Yes [id number] 25mg Take 1 [facility] e 25 mg 8-05 tablet by ity of tablet 00:00: mouth [place] 00 every 6 Medical (six) Branch hours as needed for N/V alternatin g with Ondansetro n. HYDROcodone Yes [id number] 1{tbl} Take 1 [facility] -acetaminop 8-05 tablet by [facility]y of hen 7.5-325 00:00: mouth [place] mg per 00 every 6 Medical tablet (six) Branch hours as needed (Pain scal 7-10). pantoprazol Yes [id number] 40mg Take 1 [facility] e 40 mg EC 8-05 tablet by ity of tablet 00:00: mouth 2 [place] 00 (two) Medical times Branch daily. ondansetron Yes [id number] 4mg Take 1 [facility] 4 mg tablet 8-05 tablet by ity of 00:00: mouth [place] 00 every 8 Medical (eight) Branch hours as needed for Nausea and Vomiting (N/V). proMETHazin 2018- Yes [id number] 25mg Take 1 [facility] e 25 mg 8-05 tablet by ity of tablet 00:00: mouth [place] 00 every 6 Medical (six) Branch hours as needed for N/V alternatin g with Ondansetro n. HYDROcodone Yes [id number] 1{tbl} Take 1 [facility] -acetaminop 8-05 tablet by [facility]y of hen 7.5-325 00:00: mouth [place] mg per 00 every 6 Medical tablet (six) Branch hours as needed (Pain scal 7-10). pantoprazol 2019- Yes [id number] 40mg Take 1 [facility] e 40 mg EC 8-05 tablet by ity of tablet 00:00: mouth 2 [place] 00 (two) Medical times Branch daily. ondansetron 2018- Yes [id number] 4mg Take 1 [facility] 4 mg tablet 8-05 tablet by ity of 00:00: mouth [place] 00 every 8 Medical (eight) Branch hours as needed for Nausea and Vomiting (N/V). proMETHazin 2018- Yes [id number] 25mg Take 1 [facility] e 25 mg 8-05 tablet by ity of tablet 00:00: mouth [place] 00 every 6 Medical (six) Branch hours as needed for N/V alternatin g with Ondansetro n. HYDROcodone 2018- Yes [id number] 1{tbl} Take 1 [facility] -acetaminop 8-05 tablet by [facility]y of hen 7.5-325 00:00: mouth [place] mg per 00 every 6 Medical tablet (six) Branch hours as needed (Pain scal 7-10). pantoprazol Yes [id number] 40mg Take 1 [facility] e 40 mg EC 8-05 tablet by ity of tablet 00:00: mouth 2 [place] 00 (two) Medical times Branch daily. ondansetron 2018- Yes [id number] 4mg Take 1 [facility] 4 mg tablet 8-05 tablet by ity of 00:00: mouth [place] 00 every 8 Medical (eight) Branch hours as needed for Nausea and Vomiting (N/V). proMETHazin 2018- Yes [id number] 25mg Take 1 [facility] e 25 mg 8-05 tablet by ity of tablet 00:00: mouth [place] 00 every 6 Medical (six) Branch hours as needed for N/V alternatin g with Ondansetro n. HYDROcodone 2019-0 Yes [id number] 1{tbl} Take 1 [facility] -acetaminop 8-05 tablet by ity of hen 7.5-325 00:00: mouth [place] mg per 00 every 6 Medical tablet (six) Branch hours as needed (Pain scal 7-10). pantoprazol 2018-0 Yes [id number] 40mg Take 1 [facility] e 40 mg EC 8-05 tablet by ity of tablet 00:00: mouth 2 [place] 00 (two) Medical times Branch daily. ondansetron 2018- Yes [id number] 4mg Take 1 [facility] 4 mg tablet 8-05 tablet by ity of 00:00: mouth [place] 00 every 8 Medical (eight) Branch hours as needed for Nausea and Vomiting (N/V). proMETHazin 2018- Yes [id number] 25mg Take 1 [facility] e 25 mg 8-05 tablet by ity of tablet 00:00: mouth [place] 00 every 6 Medical (six) Branch hours as needed for N/V alternatin g with Ondansetro n. HYDROcodone Yes [id number] 1{tbl} Take 1 [facility] -acetaminop 8-05 tablet by [facility]y of hen 7.5-325 00:00: mouth [place] mg per 00 every 6 Medical tablet (six) Branch hours as needed (Pain scal 7-10). pantoprazol Yes [id number] 40mg Take 1 [facility] e 40 mg EC 8-05 tablet by ity of tablet 00:00: mouth 2 [place] 00 (two) Medical times Branch daily. ondansetron Yes [id number] 4mg Take 1 [facility] 4 mg tablet 8-05 tablet by ity of 00:00: mouth [place] 00 every 8 Medical (eight) Branch hours as needed for Nausea and Vomiting (N/V). proMETHazin Yes [id number] 25mg Take 1 [facility] e 25 mg 8-05 tablet by ity of tablet 00:00: mouth [place] 00 every 6 Medical (six) Branch hours as needed for N/V alternatin g with Ondansetro n. HYDROcodone 2018- Yes [id number] 1{tbl} Take 1 [facility] -acetaminop 8-05 tablet by ity of hen 7.5-325 00:00: mouth [place] mg per 00 every 6 Medical tablet (six) Branch hours as needed (Pain scal 7-10). pantoprazol 2018- Yes [id number] 40mg Take 1 [facility] e 40 mg EC 8-05 tablet by ity of tablet 00:00: mouth 2 [place] 00 (two) Medical times Branch daily. ondansetron 2018- Yes [id number] 4mg Take 1 [facility] 4 mg tablet 8-05 tablet by ity of 00:00: mouth [place] 00 every 8 Medical (eight) Branch hours as needed for Nausea and Vomiting (N/V). proMETHazin 2019-0 Yes [id number] 25mg Take 1 [facility] e 25 mg 8-05 tablet by ity of tablet 00:00: mouth [place] 00 every 6 Medical (six) Branch hours as needed for N/V alternatin g with Ondansetro n. HYDROcodone 2018- Yes [id number] 1{tbl} Take 1 [facility] -acetaminop 8-05 tablet by ity of hen 7.5-325 00:00: mouth [place] mg per 00 every 6 Medical tablet (six) Branch hours as needed (Pain scal 7-10). pantoprazol 2018- Yes [id number] 40mg Take 1 [facility] e 40 mg EC 8-05 tablet by ity of tablet 00:00: mouth 2 [place] 00 (two) Medical times Branch daily. ondansetron 2018- Yes [id number] 4mg Take 1 [facility] 4 mg tablet 8-05 tablet by ity of 00:00: mouth [place] 00 every 8 Medical (eight) Branch hours as needed for Nausea and Vomiting (N/V). proMETHazin Yes [id number] 25mg Take 1 [facility] e 25 mg 8-05 tablet by ity of tablet 00:00: mouth [place] 00 every 6 Medical (six) Branch hours as needed for N/V alternatin g with Ondansetro n. HYDROcodone 2018- Yes [id number] 1{tbl} Take 1 [facility] -acetaminop 8-05 tablet by ity of hen 7.5-325 00:00: mouth [place] mg per 00 every 6 Medical tablet (six) Branch hours as needed (Pain scal 7-10). pantoprazol 2018- Yes [id number] 40mg Take 1 [facility] e 40 mg EC 8-05 tablet by ity of tablet 00:00: mouth 2 [place] 00 (two) Medical times Branch daily. ondansetron 2019-0 Yes [id number] 4mg Take 1 [facility] 4 mg tablet 8-05 tablet by ity of 00:00: mouth [place] 00 every 8 Medical (eight) Branch hours as needed for Nausea and Vomiting (N/V). proMETHazin 2018- Yes [id number] 25mg Take 1 [facility] e 25 mg 8-05 tablet by ity of tablet 00:00: mouth [place] 00 every 6 Medical (six) Branch hours as needed for N/V alternatin g with Ondansetro n. HYDROcodone Yes [id number] 1{tbl} Take 1 [facility] -acetaminop 8-05 tablet by ity of hen 7.5-325 00:00: mouth [place] mg per 00 every 6 Medical tablet (six) Branch hours as needed (Pain scal 7-10). pantoprazol Yes [id number] 40mg Take 1 [facility] e 40 mg EC 8-05 tablet by ity of tablet 00:00: mouth 2 [place] 00 (two) Medical times Branch daily. ondansetron Yes [id number] 4mg Take 1 [facility] 4 mg tablet 8-05 tablet by ity of 00:00: mouth [place] 00 every 8 Medical (eight) Branch hours as needed for Nausea and Vomiting (N/V). proMETHazin Yes [id number] 25mg Take 1 [facility] e 25 mg 8-05 tablet by ity of tablet 00:00: mouth [place] 00 every 6 Medical (six) Branch hours as needed for N/V alternatin g with Ondansetro n. HYDROcodone Yes [id number] 1{tbl} Take 1 [facility] -acetaminop 8-05 tablet by ity of hen 7.5-325 00:00: mouth [place] mg per 00 every 6 Medical tablet (six) Branch hours as needed (Pain scal 7-10). pantoprazol Yes [id number] 40mg Take 1 [facility] e 40 mg EC 8-05 tablet by ity of tablet 00:00: mouth 2 [place] 00 (two) Medical times Branch daily. ondansetron Yes [id number] 4mg Take 1 [facility] 4 mg tablet 8-05 tablet by ity of 00:00: mouth [place] 00 every 8 Medical (eight) Branch hours as needed for Nausea and Vomiting (N/V). proMETHazin Yes [id number] 25mg Take 1 [facility] e 25 mg 8-05 tablet by ity of tablet 00:00: mouth [place] 00 every 6 Medical (six) Branch hours as needed for N/V alternatin g with Ondansetro n. HYDROcodone Yes [id number] 1{tbl} Take 1 [facility] -acetaminop 8-05 tablet by ity of hen 7.5-325 00:00: mouth [place] mg per 00 every 6 Medical tablet (six) Branch hours as needed (Pain scal 7-10). pantoprazol Yes [id number] 40mg Take 1 [facility] e 40 mg EC 8-05 tablet by ity of tablet 00:00: mouth 2 [place] 00 (two) Medical times Branch daily. ondansetron 2018- Yes [id number] 4mg Take 1 [facility] 4 mg tablet 8-05 tablet by ity of 00:00: mouth [place] 00 every 8 Medical (eight) Branch hours as needed for Nausea and Vomiting (N/V). proMETHazin Yes [id number] 25mg Take 1 [facility] e 25 mg 8-05 tablet by ity of tablet 00:00: mouth [place] 00 every 6 Medical (six) Branch hours as needed for N/V alternatin g with Ondansetro n. HYDROcodone Yes [id number] 1{tbl} Take 1 [facility] -acetaminop 8-05 tablet by ity of hen 7.5-325 00:00: mouth [place] mg per 00 every 6 Medical tablet (six) Branch hours as needed (Pain scal 7-10). pantoprazol Yes [id number] 40mg Take 1 [facility] e 40 mg EC 8-05 tablet by ity of tablet 00:00: mouth 2 [place] 00 (two) Medical times Branch daily. proMETHazin Yes [id number] 25mg Take 1 [facility] e 25 mg 8-05 tablet by ity of tablet 00:00: mouth [place] 00 every 6 Medical (six) Branch hours as needed for N/V alternatin g with Ondansetro n. HYDROcodone Yes [id number] 1{tbl} Take 1 [facility] -acetaminop 8-05 tablet by ity of hen 7.5-325 00:00: mouth [place] mg per 00 every 6 Medical tablet (six) Branch hours as needed (Pain scal 7-10). pantoprazol Yes [id number] 40mg Take 1 [facility] e 40 mg EC 8-05 tablet by ity of tablet 00:00: mouth 2 [place] 00 (two) Medical times Branch daily. proMETHazin Yes [id number] 25mg Take 1 [facility] e 25 mg 8-05 tablet by ity of tablet 00:00: mouth [place] 00 every 6 Medical (six) Branch hours as needed for N/V alternatin g with Ondansetro n. HYDROcodone Yes [id number] 1{tbl} Take 1 [facility] -acetaminop 8-05 tablet by ity of hen 7.5-325 00:00: mouth [place] mg per 00 every 6 Medical tablet (six) Branch hours as needed (Pain scal 7-10). pantoprazol Yes [id number] 40mg Take 1 [facility] e 40 mg EC 8-05 tablet by ity of tablet 00:00: mouth 2 [place] 00 (two) Medical times Branch daily. proMETHazin Yes [id number] 25mg Take 1 [facility] e 25 mg 8-05 tablet by ity of tablet 00:00: mouth [place] 00 every 6 Medical (six) Branch hours as needed for N/V alternatin g with Ondansetro n. HYDROcodone Yes [id number] 1{tbl} Take 1 [facility] -acetaminop 8-05 tablet by ity of hen 7.5-325 00:00: mouth [place] mg per 00 every 6 Medical tablet (six) Branch hours as needed (Pain scal 7-10). pantoprazol Yes [id number] 40mg Take 1 [facility] e 40 mg EC 8-05 tablet by ity of tablet 00:00: mouth 2 [place] 00 (two) Medical times Branch daily. proMETHazin Yes [id number] 25mg Take 1 [facility] e 25 mg 8-05 tablet by ity of tablet 00:00: mouth [place] 00 every 6 Medical (six) Branch hours as needed for N/V alternatin g with Ondansetro n. HYDROcodone Yes [id number] 1{tbl} Take 1 [facility] -acetaminop 8-05 tablet by ity of hen 7.5-325 00:00: mouth [place] mg per 00 every 6 Medical tablet (six) Branch hours as needed (Pain scal 7-10). pantoprazol Yes [id number] 40mg Take 1 [facility] e 40 mg EC 8-05 tablet by ity of tablet 00:00: mouth 2 [place] 00 (two) Medical times Branch daily. proMETHazin Yes [id number] 25mg Take 1 [facility] e 25 mg 8-05 tablet by ity of tablet 00:00: mouth [place] 00 every 6 Medical (six) Branch hours as needed for N/V alternatin g with Ondansetro n. HYDROcodone Yes [id number] 1{tbl} Take 1 [facility] -acetaminop 8-05 tablet by ity of hen 7.5-325 00:00: mouth [place] mg per 00 every 6 Medical tablet (six) Branch hours as needed (Pain scal 7-10). HYDROcodone 2021- No [id number] 1{tbl} Take 1 [facility] -acetaminop 8-05 05-27 tablet by it y of hen 7.5-325 00:00: 00:00 mouth [place] per 00 :00 every 6 Medical tablet (six) Branch hours as needed (Pain scal 7-10). pantoprazol 2020- No [id number] 40mg Take 1 [facility] e 40 mg EC 8-05 04-05 tablet by ity of tablet 00:00: 00:00 mouth 2 [place] 00 :00 (two) Medical times Branch daily. proMETHazin 2020- No [id number] 25mg Take 1 [facility] e 25 mg 8-05 04-05 tablet by ity of tablet 00:00: 00:00 mouth [place] 00 :00 every 6 Medical (six) Branch hours as needed for N/V alternatin g with Ondansetro n. pantoprazol 2020- No [id number] 40mg Take 1 [facility] e 40 mg EC 8-05 04-05 tablet by ity of tablet 00:00: 00:00 mouth 2 [place] 00 :00 (two) Medical times Branch daily. proMETHazin 2020- No [id number] 25mg Take 1 [facility] e 25 mg 8-05 04-05 tablet by ity of tablet 00:00: 00:00 mouth [place] 00 :00 every 6 Medical (six) Branch hours as needed for N/V alternatin g with Ondansetro n. HYDROcodone Yes 1{tbl} 1 tablet, [facility] -acetaminop 8-04 Oral, ity of hen (NORCO) 19:23: Q6HPRN, [place] 10-325 mg 44 Starting Medica l tablet 1 [place] 11/16/18 Branc h tablet at 1423, Until Discontinu ed, Routine, Pain (scale 4-6), Pain (scale 7-10) citalopram 2019-0 Yes 10mg 10 mg, Unive rs (CELEXA) 8 Oral, ity of tablet 10 14:00: DAILY, [place] mg 00 First dose Medical on [facility] 11/16/18 at 0900, Until Discontinu ed, Routine losartan 2019-0 Yes 100mg 100 mg, Unive rs (COZAAR) 11-16 Oral, ity of tablet 100 14:00: DAILY, [place] mg 00 First dose Medical on [facility] 11/16/18 at 0900, Until Discontinu ed lipase-prot 2019-0 Yes 3{capsu 3 capsule, Univers ease-amylas 11-16 le} Oral, TID ity of e (CREON) 13:00: MEALS, [place] 12,000-38,0 00 First dose Me dical 00 -60,000 on [facility] unit 11/16/18 at capsule 3 0800, capsule Until Discontinu ed FENTanyl PF 2019-0 2019- No 25ug 25 mcg, Un you (SUBLIMAZE 11-16- Slow IV ity o f (PF)) 12:38: 19:23 Push, [place] injection 00 :28 Q6HPRN, Medical 25 mcg Starting [facility] 11/16/18 at 0738, Until [place] 11/16/18 at 1423, Routine, Pain (scale 7-10) baclofen 2019-0 Yes 10mg 10 mg, Univers (LIORESAL) 11-16 Oral, TID, ity of tablet 10 05:45: First dose [place] mg 00 on [facility] 11/16/18 at Branch 0045, Until Discontinu ed, Routine QUEtiapine 2019-0 Yes 100mg 100 mg, Uni vers (SEROQUEL) 8- Oral, QHS, ity of tablet 100 02:00: First dose [place] mg 00 on [facility] 11/15/18 at Branch 2100, Until Discontinu ed, Routine divalproex 2019-0 Yes 125mg 125 mg, Uni vers (DEPAKOTE) 8- Oral, QHS, ity of EC tablet 02:00: First dose [place] 125 mg 00 on [facility] 11/15/18 at Branch 2100, [...] 2019- No 12.5ug 12.5 mcg, Univers (SUBLIMAZE 8-03 08-04 Slow IV ity o f (PF)) 22:44: 12:38 Push, [place] injection 08 :16 Q6HPRN, Medical 12.5 mcg Starting Branch 11/15/18 at 1744, Until 11/16/18 at 0738, Routine, Pain (scale 7-10) ondansetron 2018- Yes 4mg 4 mg, Slow Univers (ZOFRAN 11-15 IV Push, ity of (PF)) 22:43: Q6HPRN, [place] injection 4 29 Starting Medi brandy mg 11/15/18 Branch at 1743, Until Discontinu ed, Routine, Nausea and Vomiting (N/V) acetaminoph Yes 650mg 650 mg, Un you en 11-15 Oral, ity of (TYLENOL) 22:41: Q6HPRN, [place] tablet 650 56 Starting Medic al mg [...] Sat Medica l NaCl 0.9% 11/15/18 at [facility] h (NS) 20 mL 1330, 20 syringe [...] Sat Medica l mg(2.5 mg 11/15/18 at [facility] h base)/3 mL 1130, [place] nebulizer solution [...] at Branch 1045, [place] traMADol 2019- No [id number] 50mg Take 1 [facility] (ULTRAM) 50 10-31 [...] 3 ity o f 000- 00:00: (three) [place] 180,000 00 times Medical unit CpDR daily [...] 3 ity o f 000- 00:00: (three) [place] 180,000 00 times Medical unit CpDR daily [...] 3 ity o f 000- 00:00: (three) [place] 180,000 00 times Medical unit CpDR daily [...] 3 ity o f 000- 00:00: (three) [place] 180,000 00 times Medical unit CpDR daily with Bran ch meals. CREON 2019-0 Yes Take by Univers 36,000-114, 7-11 mouth 3 ity o f 000- 00:00: (three) [place] 180,000 00 times Medical unit CpDR daily with Bran ch meals. CREON 2019-0 Yes Take by Univers 36,000-114, 7-11 mouth 3 ity o f 000- 00:00: (three) [place] 180,000 00 times Medical unit CpDR daily [...] 3 ity o f 000- 00:00: (three) [place] 180,000 00 times Medical unit CpDR daily [...] 3 ity o f 000- 00:00: (three) [place] 180,000 00 times Medical unit CpDR daily with Bran ch meals. CREON 2018-0 Yes Take by [facility] 36,000-114, 7-11 mouth 3 ity o f 000- 00:00: (three) [place] 180,000 00 times Medical unit CpDR daily with Bran ch meals. CREON 2018-0 Yes Take by [facility] 36,000-114, 7-11 mouth 3 ity o f 000- 00:00: (three) [place] 180,000 00 times Medical unit CpDR daily [...] 3 ity of 000- 00:00: 00:00 (three) [place] 180,000 00 :00 times Medical unit CpDR daily with Bran ch meals. dicyclomine 2018- No [id number] 20mg Take 1 [facility] (BENTYL) 20 09-09 08-03 tablet by it y of mg tablet 00:00: 00:[place] (four) Medical times Branch daily as needed for Abdominal pain. ondansetron 2018- No [id number] 4mg Take 1 [facility] (ZOFRAN) 4 09-09 08-03 tablet by ity of mg tablet 00:00: 00:00 mouth [place] 00 :00 every 8 Medical (eight) Branch hours as needed for Nausea and Vomiting (N/V). amLODIPine 2019- No [id number] 5mg Take 2 [facility] 2.5 mg 07-21- tablets by ity of tablet 00:00: 00:00 mouth at [place] 00 :00 bedtime. Medical Branch proMETHazin 2019- No [id number] 25mg Take 1 Univers e 25 mg [...] Take 1 Univ ers (LASIX) 20 05-01 08-03 tablet by ity of mg tablet 00:00: 00:00 mouth [place] 00 :00 every Medical morning. Branch KCL 2015-04 2019- No 20meq Take 1 [facility] (KLOR-CON 17 08-03 tablet by ity of M20) 20 mEq 00:00: 00:[place] tablet 00 :00 daily. Medical Branch dicyclomine 2018- No 20mg Take 1 Uni vers (BENTYL) 20 5-03 08-03 tablet by it y of mg tablet 00:00: 00:[place] (four) Medical times Branch daily. ondansetron 2014-04 2019- No 4mg Take 1 Tab [facility] (ZOFRAN, 1-18 08-03 by mouth ity of HYDROCHLORI 00:00: 00:00 every 8 [place] 4 mg 00 :00 (eight) Medical tablet hours. Branch Losartan Losartan Yes Na [place] 1 tablet Common Potassium Potassium Spiri t [facility] Lexapro Lexapro Yes Na [place] 1 tablet Co mmon [facility] Seroquel XR Seroquel XR Yes Na [place] 1 tablet Common in the [facility] evening [facility] Phenergan Phenergan Yes Na [place] one tablet Common [facility] Doxycycline Doxycycline Yes Na [place] 1 capsule Common Hyclate Hyclate [facility] Azithromyci Azithromyci Yes Na [place] 2 tablets Common n n on the first day, - [facility] [address] [facility] daily for Medical 4 days Center Robaxin-750 Robaxin-750 Yes Na [place] 1 tablet Common [facility] Flonase Flonase Yes [place] 2 spray in Common each [facility] nostril [facility] Diazepam Diazepam Yes Na [place] 1 tablet Common as needed [facility] PredniSONE PredniSONE Yes Na [place] 2 tablet Common daily x 5 days then - [facility] one tablet [facility] daily x 5 [facility] Gabapentin Gabapentin Yes Na Slade 1 capsule Common [facility] Losartan Losartan Yes Na [place] TAKE 1 Co mmon Potassium Potassium TABLET BY Spirit MOUTH - [facility] EVERY DAY [facility] Losartan Losartan No 1{table QD Losartan Potassium Potassium t} Potassium 100 MG 100 MG 100 MG tiZANidine tiZANidine No 1{table BID tiZANidine HCl 2 MG HCl 2 MG t_as_ne HCl 2 MG eded} HYDROcodone HYDROcodone No 1{table QID HYDROcodon -Acetaminop -Acetaminop t_as_ne e-Acetamin hen 7.5-325 hen 7.5-325 eded} ophen MG MG 7.5-325 MG Carvedilol Carvedilol No 1{table BID Carvedilol 12.5 MG 12.5 MG t_with_ 12.5 MG food} Promethazin Promethazin No 1{table BID Promethazi e HCl 25 MG e HCl 25 MG t_as_ne ne HCl 25 eded} MG Gabapentin Gabapentin No Gabapentin 300 MG 300 MG 300 MG HYDROcodone HYDROcodone No 1{table QID HYDROcodon -Acetaminop -Acetaminop t_as_ne e-Acetamin hen 7.5-325 hen 7.5-325 eded} ophen MG MG 7.5-325 MG Azithromyci Azithromyci No QD Azithromyc n 250 MG n 250 MG in 250 MG Phenergan Phenergan No Phenergan 25mg 25mg 25mg traZODone traZODone No 2{table QD traZODone HCl 100 MG HCl 100 MG ts_at_b HCl 100 MG edtime_ as_need ed} Doxycycline Doxycycline No 1{capsu BID Doxycyclin Hyclate 100 Hyclate 100 le} e Hyclate MG MG 100 MG Flonase 50 Flonase 50 No 2{spray QD Flonase 50 MCG/ACT MCG/ACT _in_eac MCG/ACT h_nostr il} Promethazin Promethazin No 1{table BID Promethazi e HCl 25 MG e HCl 25 MG t_as_ne ne HCl 25 eded} MG Robaxin-750 Robaxin-750 No 1{table 6xD Robaxin-75 750 MG 750 MG t} 0 750 MG Carvedilol Carvedilol No 1{table BID Carvedilol 12.5 MG 12.5 MG t_with_ 12.5 MG food} ARIPiprazol ARIPiprazol No 1{table BID ARIPiprazo e 15 MG e 15 MG t} le 15 MG predniSONE predniSONE No QD predniSONE 10 MG 10 MG 10 MG SEROquel XR SEROquel XR No 1{table QD SEROquel 300 MG 300 MG t_in_th XR 300 MG e_eveni ng} diazePAM 5 diazePAM 5 No 1{table diazePAM 5 MG MG t_as_ne MG eded} Lexapro 20 Lexapro 20 No 1{table QD Lexapro 20 MG MG t} MG Losartan Losartan No Losartan Potassium Potassium Potassium 100 MG 100 MG 100 MG HYDROcodone HYDROcodone No 1{table QID HYDROcodon -Acetaminop -Acetaminop t_as_ne e-Acetamin hen 7.5-325 hen 7.5-325 eded} ophen MG MG 7.5-325 MG Azithromyci Azithromyci No QD Azithromyc n 250 MG n 250 MG in 250 MG Phenergan Phenergan No Phenergan 25mg 25mg 25mg SEROquel XR SEROquel XR No 1{table QD SEROquel 300 MG 300 MG t_in_th XR 300 MG e_eveni ng} Doxycycline Doxycycline No 1{capsu BID Doxycyclin Hyclate 100 Hyclate 100 le} e Hyclate MG MG 100 MG Flonase 50 Flonase 50 No 2{spray QD Flonase 50 MCG/ACT MCG/ACT _in_eac MCG/ACT h_nostr il} Carvedilol Carvedilol No 1{table BID Carvedilol 12.5 MG 12.5 MG t_with_ 12.5 MG food} Robaxin-750 Robaxin-750 No 1{table 6xD Robaxin-75 750 MG 750 MG t} 0 750 MG Lexapro 20 Lexapro 20 No 1{table QD Lexapro 20 MG MG t} MG traZODone traZODone No 2{table QD traZODone HCl 100 MG HCl 100 MG ts_at_b HCl 100 MG edtime_ as_need ed} ARIPiprazol ARIPiprazol No 1{table BID ARIPiprazo e 15 MG e 15 MG t} le 15 MG diazePAM 5 diazePAM 5 No 1{table diazePAM 5 MG MG t_as_ne MG eded} Promethazin Promethazin No Promethazi e HCl 25 MG e HCl 25 MG ne HCl 25 MG Losartan Losartan No Losartan Potassium Potassium Potassium 100 MG 100 MG 100 MG predniSONE predniSONE No QD predniSONE 10 MG 10 MG 10 MG HYDROcodone HYDROcodone No 1{table QID HYDROcodon -Acetaminop -Acetaminop t_as_ne e-Acetamin hen 7.5-325 hen 7.5-325 eded} ophen MG MG 7.5-325 MG Azithromyci Azithromyci No QD Azithromyc n 250 MG n 250 MG in 250 MG Phenergan Phenergan No Phenergan 25mg 25mg 25mg SEROquel XR SEROquel XR No 1{table QD SEROquel 300 MG 300 MG t_in_th XR 300 MG e_eveni ng} Doxycycline Doxycycline No 1{capsu BID Doxycyclin Hyclate 100 Hyclate 100 le} e Hyclate MG MG 100 MG Flonase 50 Flonase 50 No 2{spray QD Flonase 50 MCG/ACT MCG/ACT _in_eac MCG/ACT h_nostr il} Carvedilol Carvedilol No 1{table BID Carvedilol 12.5 MG 12.5 MG t_with_ 12.5 MG food} Robaxin-750 Robaxin-750 No 1{table 6xD Robaxin-75 750 MG 750 MG t} 0 750 MG Lexapro 20 Lexapro 20 No 1{table QD Lexapro 20 MG MG t} MG traZODone traZODone No 2{table QD traZODone HCl 100 MG HCl 100 MG ts_at_b HCl 100 MG edtime_ as_need ed} ARIPiprazol ARIPiprazol No 1{table BID ARIPiprazo e 15 MG e 15 MG t} le 15 MG diazePAM 5 diazePAM 5 No 1{table diazePAM 5 MG MG t_as_ne MG eded} Promethazin Promethazin No Promethazi e HCl 25 MG e HCl 25 MG ne HCl 25 MG Losartan Losartan No Losartan Potassium Potassium Potassium 100 MG 100 MG 100 MG predniSONE predniSONE No QD predniSONE 10 MG 10 MG 10 MG Carvedilol Carvedilol No 1{table BID Carvedilol 12.5 MG 12.5 MG t_with_ 12.5 MG food} traZODone traZODone No 2{table QD traZODone HCl 100 MG HCl 100 MG ts_at_b HCl 100 MG edtime_ as_need ed} HYDROcodone HYDROcodone No 1{table QID HYDROcodon -Acetaminop -Acetaminop t_as_ne e-Acetamin hen 7.5-325 hen 7.5-325 eded} ophen MG MG 7.5-325 MG PROzac 20 PROzac 20 No 1{capsu QD PROzac 20 MG MG le} MG Losartan Losartan No 1{table QD Losartan Potassium Potassium t} Potassium 100 MG 100 MG 100 MG Losartan Losartan No Losartan Potassium Potassium Potassium 100 MG 100 MG 100 MG hydrOXYzine hydrOXYzine No hydrOXYzin HCl HCl e HCl Promethazin Promethazin No BID Promethazi e HCl 25 MG e HCl 25 MG ne HCl 25 MG tiZANidine tiZANidine No 1{table TID tiZANidine HCl 2 MG HCl 2 MG t_as_ne HCl 2 MG eded} HYDROcodone HYDROcodone No 1{table QID HYDROcodon -Acetaminop -Acetaminop t_as_ne e-Acetamin hen 7.5-325 hen 7.5-325 eded} ophen MG MG 7.5-325 MG tiZANidine tiZANidine No 1{table TID tiZANidine HCl 2 MG HCl 2 MG t_as_ne HCl 2 MG eded} PROzac 20 PROzac 20 No 1{capsu QD PROzac 20 MG MG le} MG Promethazin Promethazin No BID Promethazi e HCl 25 MG e HCl 25 MG ne HCl 25 MG Losartan Losartan No Losartan Potassium Potassium Potassium 100 MG 100 MG 100 MG hydrOXYzine hydrOXYzine No hydrOXYzin HCl HCl e HCl traZODone traZODone No 2{table QD traZODone HCl 100 MG HCl 100 MG ts_at_b HCl 100 MG edtime_ as_need ed} Carvedilol Carvedilol No 1{table BID Carvedilol 12.5 MG 12.5 MG t_with_ 12.5 MG food} Losartan Losartan No 1{table QD Losartan Potassium Potassium t} Potassium 100 MG 100 MG 100 MG HYDROcodone HYDROcodone No 1{table QID HYDROcodon -Acetaminop -Acetaminop t_as_ne e-Acetamin hen 7.5-325 hen 7.5-325 eded} ophen MG MG 7.5-325 MG tiZANidine tiZANidine No 1{table TID tiZANidine HCl 2 MG HCl 2 MG t_as_ne HCl 2 MG eded} PROzac 20 PROzac 20 No 1{capsu QD PROzac 20 MG MG le} MG Promethazin Promethazin No BID Promethazi e HCl 25 MG e HCl 25 MG ne HCl 25 MG Losartan Losartan No Losartan Potassium Potassium Potassium 100 MG 100 MG 100 MG hydrOXYzine hydrOXYzine No hydrOXYzin HCl HCl e HCl traZODone traZODone No 2{table QD traZODone HCl 100 MG HCl 100 MG ts_at_b HCl 100 MG edtime_ as_need ed} Carvedilol Carvedilol No 1{table BID Carvedilol 12.5 MG 12.5 MG t_with_ 12.5 MG food} Losartan Losartan No 1{table QD Losartan Potassium Potassium t} Potassium 100 MG 100 MG 100 MG HYDROcodone HYDROcodone No 1{table QID HYDROcodon -Acetaminop -Acetaminop t_as_ne e-Acetamin hen 7.5-325 hen 7.5-325 eded} ophen MG MG 7.5-325 MG tiZANidine tiZANidine No 1{table TID tiZANidine HCl 2 MG HCl 2 MG t_as_ne HCl 2 MG eded} PROzac 20 PROzac 20 No 1{capsu QD PROzac 20 MG MG le} MG Promethazin Promethazin No BID Promethazi e HCl 25 MG e HCl 25 MG ne HCl 25 MG Losartan Losartan No Losartan Potassium Potassium Potassium 100 MG 100 MG 100 MG hydrOXYzine hydrOXYzine No hydrOXYzin HCl HCl e HCl traZODone traZODone No 2{table QD traZODone HCl 100 MG HCl 100 MG ts_at_b HCl 100 MG edtime_ as_need ed} Carvedilol Carvedilol No 1{table BID Carvedilol 12.5 MG 12.5 MG t_with_ 12.5 MG food} Losartan Losartan No 1{table QD Losartan Potassium Potassium t} Potassium 100 MG 100 MG 100 MG HYDROcodone HYDROcodone No 1{table QID HYDROcodon -Acetaminop -Acetaminop t_as_ne e-Acetamin hen 7.5-325 hen 7.5-325 eded} ophen MG MG 7.5-325 MG tiZANidine tiZANidine No 1{table TID tiZANidine HCl 2 MG HCl 2 MG t_as_ne HCl 2 MG eded} PROzac 20 PROzac 20 No 1{capsu QD PROzac 20 MG MG le} MG Losartan Losartan No 1{table QD Losartan Potassium Potassium t} Potassium 100 MG 100 MG 100 MG Promethazin Promethazin No BID Promethazi e HCl 25 MG e HCl 25 MG ne HCl 25 MG hydrOXYzine hydrOXYzine No hydrOXYzin HCl HCl e HCl Carvedilol Carvedilol No 1{table BID Carvedilol 12.5 MG 12.5 MG t_with_ 12.5 MG food} traZODone traZODone No 2{table QD traZODone HCl 100 MG HCl 100 MG ts_at_b HCl 100 MG edtime_ as_need ed} Losartan Losartan No Losartan Potassium Potassium Potassium 100 MG 100 MG 100 MG HYDROcodone HYDROcodone No 1{table QID HYDROcodon -Acetaminop -Acetaminop t_as_ne e-Acetamin hen 7.5-325 hen 7.5-325 eded} ophen MG MG 7.5-325 MG tiZANidine tiZANidine No 1{table TID tiZANidine HCl 2 MG HCl 2 MG t_as_ne HCl 2 MG eded} PROzac 20 PROzac 20 No 1{capsu QD PROzac 20 MG MG le} MG Losartan Losartan No 1{table QD Losartan Potassium Potassium t} Potassium 100 MG 100 MG 100 MG Promethazin Promethazin No BID Promethazi e HCl 25 MG e HCl 25 MG ne HCl 25 MG hydrOXYzine hydrOXYzine No hydrOXYzin HCl HCl e HCl Carvedilol Carvedilol No 1{table BID Carvedilol 12.5 MG 12.5 MG t_with_ 12.5 MG food} traZODone traZODone No 2{table QD traZODone HCl 100 MG HCl 100 MG ts_at_b HCl 100 MG edtime_ as_need ed} Losartan Losartan No Losartan Potassium Potassium Potassium 100 MG 100 MG 100 MG HYDROcodone HYDROcodone No 1{table QID HYDROcodon -Acetaminop -Acetaminop t_as_ne e-Acetamin hen 7.5-325 hen 7.5-325 eded} ophen MG MG 7.5-325 MG Promethazin Promethazin No BID Promethazi e HCl 25 MG e HCl 25 MG ne HCl 25 MG Losartan Losartan No Losartan Potassium Potassium Potassium 100 MG 100 MG 100 MG Carvedilol Carvedilol No 1{table BID Carvedilol 12.5 MG 12.5 MG t_with_ 12.5 MG food} tiZANidine tiZANidine No 1{table TID tiZANidine HCl 2 MG HCl 2 MG t_as_ne HCl 2 MG eded} Losartan Losartan No 1{table QD Losartan Potassium Potassium t} Potassium 100 MG 100 MG 100 MG traZODone traZODone No 2{table QD traZODone HCl 100 MG HCl 100 MG ts_at_b HCl 100 MG edtime_ as_need ed} HYDROcodone HYDROcodone No 1{table QID HYDROcodon -Acetaminop -Acetaminop t_as_ne e-Acetamin hen 7.5-325 hen 7.5-325 eded} ophen MG MG 7.5-325 MG Promethazin Promethazin No BID Promethazi e HCl 25 MG e HCl 25 MG ne HCl 25 MG Losartan Losartan No Losartan Potassium Potassium Potassium 100 MG 100 MG 100 MG Carvedilol Carvedilol No 1{table BID Carvedilol 12.5 MG 12.5 MG t_with_ 12.5 MG food} tiZANidine tiZANidine No 1{table TID tiZANidine HCl 2 MG HCl 2 MG t_as_ne HCl 2 MG eded} Losartan Losartan No 1{table QD Losartan Potassium Potassium t} Potassium 100 MG 100 MG 100 MG traZODone traZODone No 2{table QD traZODone HCl 100 MG HCl 100 MG ts_at_b HCl 100 MG edtime_ as_need ed} Carvedilol Carvedilol No 1{table BID Carvedilol 12.5 MG 12.5 MG t_with_ 12.5 MG food} Gabapentin Gabapentin No Gabapentin 300 MG 300 MG 300 MG tiZANidine tiZANidine No 1{table TID tiZANidine HCl 2 MG HCl 2 MG t_as_ne HCl 2 MG eded} HYDROcodone HYDROcodone No 1{table QID HYDROcodon -Acetaminop -Acetaminop t_as_ne e-Acetamin hen 7.5-325 hen 7.5-325 eded} ophen MG MG 7.5-325 MG Promethazin Promethazin No Promethazi e HCl 25 MG e HCl 25 MG ne HCl 25 MG Losartan Losartan No 1{table QD Losartan Potassium Potassium t} Potassium 100 MG 100 MG 100 MG Losartan Losartan No Losartan Potassium Potassium Potassium 100 MG 100 MG 100 MG traZODone traZODone No 2{table QD traZODone HCl 100 MG HCl 100 MG ts_at_b HCl 100 MG edtime_ as_need ed} Carvedilol Carvedilol No 1{table BID Carvedilol 12.5 MG 12.5 MG t_with_ 12.5 MG food} Gabapentin Gabapentin No Gabapentin 300 MG 300 MG 300 MG tiZANidine tiZANidine No 1{table TID tiZANidine HCl 2 MG HCl 2 MG t_as_ne HCl 2 MG eded} HYDROcodone HYDROcodone No 1{table QID HYDROcodon -Acetaminop -Acetaminop t_as_ne e-Acetamin hen 7.5-325 hen 7.5-325 eded} ophen MG MG 7.5-325 MG Promethazin Promethazin No Promethazi e HCl 25 MG e HCl 25 MG ne HCl 25 MG Losartan Losartan No 1{table QD Losartan Potassium Potassium t} Potassium 100 MG 100 MG 100 MG Losartan Losartan No Losartan Potassium Potassium Potassium 100 MG 100 MG 100 MG traZODone traZODone No 2{table QD traZODone HCl 100 MG HCl 100 MG ts_at_b HCl 100 MG edtime_ as_need ed} Carvedilol Carvedilol No 1{table BID Carvedilol 12.5 MG 12.5 MG t_with_ 12.5 MG food} Gabapentin Gabapentin No Gabapentin 300 MG 300 MG 300 MG tiZANidine tiZANidine No 1{table TID tiZANidine HCl 2 MG HCl 2 MG t_as_ne HCl 2 MG eded} HYDROcodone HYDROcodone No 1{table QID HYDROcodon -Acetaminop -Acetaminop t_as_ne e-Acetamin hen 7.5-325 hen 7.5-325 eded} ophen MG MG 7.5-325 MG Promethazin Promethazin No Promethazi e HCl 25 MG e HCl 25 MG ne HCl 25 MG Losartan Losartan No 1{table QD Losartan Potassium Potassium t} Potassium 100 MG 100 MG 100 MG Losartan Losartan No Losartan Potassium Potassium Potassium 100 MG 100 MG 100 MG traZODone traZODone No 2{table QD traZODone HCl 100 MG HCl 100 MG ts_at_b HCl 100 MG edtime_ as_need ed} Carvedilol Carvedilol No 1{table BID Carvedilol 12.5 MG 12.5 MG t_with_ 12.5 MG food} Gabapentin Gabapentin No Gabapentin 300 MG 300 MG 300 MG tiZANidine tiZANidine No 1{table TID tiZANidine HCl 2 MG HCl 2 MG t_as_ne HCl 2 MG eded} HYDROcodone HYDROcodone No 1{table QID HYDROcodon -Acetaminop -Acetaminop t_as_ne e-Acetamin hen 7.5-325 hen 7.5-325 eded} ophen MG MG 7.5-325 MG Promethazin Promethazin No Promethazi e HCl 25 MG e HCl 25 MG ne HCl 25 MG Losartan Losartan No 1{table QD Losartan Potassium Potassium t} Potassium 100 MG 100 MG 100 MG Losartan Losartan No Losartan Potassium Potassium Potassium 100 MG 100 MG 100 MG traZODone traZODone No 2{table QD traZODone HCl 100 MG HCl 100 MG ts_at_b HCl 100 MG edtime_ as_need ed} Losartan Losartan No 1{table QD Losartan Potassium Potassium t} Potassium 100 MG 100 MG 100 MG HYDROcodone HYDROcodone No 1{table QID HYDROcodon -Acetaminop -Acetaminop t_as_ne e-Acetamin hen 7.5-325 hen 7.5-325 eded} ophen MG MG 7.5-325 MG Gabapentin Gabapentin No Gabapentin 300 MG 300 MG 300 MG Carvedilol Carvedilol No 1{table BID Carvedilol 12.5 MG 12.5 MG t_with_ 12.5 MG food} Promethazin Promethazin No BID Promethazi e HCl 25 MG e HCl 25 MG ne HCl 25 MG tiZANidine tiZANidine No BID tiZANidine HCl 2 MG HCl 2 MG HCl 2 MG Promethazin Promethazin No Promethazi e HCl 25 MG e HCl 25 MG ne HCl 25 MG Losartan Losartan No 1{table QD Losartan Potassium Potassium t} Potassium 100 MG 100 MG 100 MG HYDROcodone HYDROcodone No 1{table QID HYDROcodon -Acetaminop -Acetaminop t_as_ne e-Acetamin hen 7.5-325 hen 7.5-325 eded} ophen MG MG 7.5-325 MG Gabapentin Gabapentin No Gabapentin 300 MG 300 MG 300 MG Carvedilol Carvedilol No 1{table BID Carvedilol 12.5 MG 12.5 MG t_with_ 12.5 MG food} Promethazin Promethazin No BID Promethazi e HCl 25 MG e HCl 25 MG ne HCl 25 MG tiZANidine tiZANidine No BID tiZANidine HCl 2 MG HCl 2 MG HCl 2 MG Promethazin Promethazin No Promethazi e HCl 25 MG e HCl 25 MG ne HCl 25 MG Losartan Losartan No 1{table QD Losartan Potassium Potassium t} Potassium 100 MG 100 MG 100 MG HYDROcodone HYDROcodone No 1{table QID HYDROcodon -Acetaminop -Acetaminop t_as_ne e-Acetamin hen 7.5-325 hen 7.5-325 eded} ophen MG MG 7.5-325 MG Gabapentin Gabapentin No Gabapentin 300 MG 300 MG 300 MG Carvedilol Carvedilol No 1{table BID Carvedilol 12.5 MG 12.5 MG t_with_ 12.5 MG food} Promethazin Promethazin No BID Promethazi e HCl 25 MG e HCl 25 MG ne HCl 25 MG tiZANidine tiZANidine No BID tiZANidine HCl 2 MG HCl 2 MG HCl 2 MG Promethazin Promethazin No Promethazi e HCl 25 MG e HCl 25 MG ne HCl 25 MG Promethazin Promethazin No Promethazi e HCl 25 MG e HCl 25 MG ne HCl 25 MG HYDROcodone HYDROcodone No 1{table QID HYDROcodon -Acetaminop -Acetaminop t_as_ne e-Acetamin hen 7.5-325 hen 7.5-325 eded} ophen MG MG 7.5-325 MG Gabapentin Gabapentin No Gabapentin 300 MG 300 MG 300 MG Carvedilol Carvedilol No 1{table BID Carvedilol 12.5 MG 12.5 MG t_with_ 12.5 MG food} Losartan Losartan No 1{table QD Losartan Potassium Potassium t} Potassium 100 MG 100 MG 100 MG tiZANidine tiZANidine No BID tiZANidine HCl 2 MG HCl 2 MG HCl 2 MG Losartan Losartan No 1{table QD Losartan Potassium Potassium t} Potassium 100 MG 100 MG 100 MG HYDROcodone HYDROcodone No 1{table QID HYDROcodon -Acetaminop -Acetaminop t_as_ne e-Acetamin hen 7.5-325 hen 7.5-325 eded} ophen MG MG 7.5-325 MG Gabapentin Gabapentin No Gabapentin 300 MG 300 MG 300 MG Promethazin Promethazin No Promethazi e HCl 25 MG e HCl 25 MG ne HCl 25 MG Carvedilol Carvedilol No 1{table BID Carvedilol 12.5 MG 12.5 MG t_with_ 12.5 MG food} Carvedilol Carvedilol No 1{table BID Carvedilol 12.5 MG 12.5 MG t_with_ 12.5 MG food} tiZANidine tiZANidine No tiZANidine HCl 2 MG HCl 2 MG HCl 2 MG Promethazin Promethazin No Promethazi e HCl 25 MG e HCl 25 MG ne HCl 25 MG Gabapentin Gabapentin No Gabapentin 300 MG 300 MG 300 MG Losartan Losartan No 1{table QD Losartan Potassium Potassium t} Potassium 100 MG 100 MG 100 MG HYDROcodone HYDROcodone No 1{table QID HYDROcodon -Acetaminop -Acetaminop t_as_ne e-Acetamin hen 7.5-325 hen 7.5-325 eded} ophen MG MG 7.5-325 MG Losartan Losartan No 1{table QD Losartan Potassium Potassium t} Potassium 100 MG 100 MG 100 MG tiZANidine tiZANidine No 1{table BID tiZANidine HCl 2 MG HCl 2 MG t_as_ne HCl 2 MG eded} HYDROcodone HYDROcodone No 1{table QID HYDROcodon -Acetaminop -Acetaminop t_as_ne e-Acetamin hen 7.5-325 hen 7.5-325 eded} ophen MG MG 7.5-325 MG Carvedilol Carvedilol No 1{table BID Carvedilol 12.5 MG 12.5 MG t_with_ 12.5 MG food} Promethazin Promethazin No 1{table BID Promethazi e HCl 25 MG e HCl 25 MG t_as_ne ne HCl 25 eded} MG Gabapentin Gabapentin No Gabapentin 300 MG 300 MG 300 MG tiZANidine tiZANidine 2021- No BID tiZANidine HCl 2 MG HCl 2 MG 08-31 HCl 2 MG 00:00 :00 Immunizations Ordered Filled Immunization Date Status Comments Sourc e Immunization Name Name Flucelvax - Flucelvax - 2021-04-03 Completed [facility] - multidose vial multidose vial 10:16:00 [facility] Flucelvax - Flucelvax - 2021-04-03 Completed [facility] - multidose vial multidose vial 10:16:00 [facility] Flucelvax - Flucelvax - 2021-04-03 Completed [facility] - multidose vial multidose vial 10:16:00 [facility] Flucelvax - Flucelvax - 2021-04-03 Completed [facility] Sp[facility] - multidose vial multidose vial 10:16:00 [facility] Flucelvax - Flucelvax - 2021-04-03 Completed [facility] - multidose vial multidose vial 10:16:00 [facility] Flucelvax - Flucelvax - 2021-04-03 Completed [facility] - multidose vial multidose vial 10:16:00 [facility] Flucelvax - Flucelvax - 2021-04-03 Completed [facility] - multidose vial multidose vial 10:16:00 [facility] Flucelvax - Flucelvax - 2021-04-03 Completed [facility] - multidose vial multidose vial 10:16:00 [facility] Flucelvax - Flucelvax - 2021-04-03 Completed [facility] Sp[facility] t - multidose vial multidose vial 10:16:00 [facility] Flucelvax - Flucelvax - 2021-04-03 Completed Common Spiri t - multidose vial multidose vial 10:16:00 [facility] Flucelvax - Flucelvax - 2021-04-03 Completed Common Spiri t - multidose vial multidose vial 10:16:00 [facility] Flucelvax - Flucelvax - 2021-04-03 Completed Common Spiri t - multidose vial multidose vial 10:16:00 [facility] Flucelvax - Flucelvax - 2021-04-03 Completed Common Spiri t - multidose vial multidose vial 10:16:00 [facility] Flucelvax - Flucelvax - 2021-04-03 Completed Common Spiri t - multidose vial multidose vial 10:16:00 [facility] Flucelvax - Flucelvax - 2021-04-03 Completed Common Spiri t - multidose vial multidose vial 10:16:00 [facility] Flucelvax - Flucelvax - 2021-04-03 Completed Common Spiri t - multidose vial multidose vial 10:16:00 [facility] Flucelvax - Flucelvax - 2021-04-03 Completed [facility] - multidose vial multidose vial 10:16:00 [facility] Flucelvax - Flucelvax - 2021-04-03 Completed [facility] - multidose vial multidose vial 10:16:00 [facility] Flucelvax - Flucelvax - 2021-04-03 Completed [facility] - multidose vial multidose vial 10:16:00 [facility] Flucelvax - Flucelvax - 2021-04-03 Completed [facility] - multidose vial multidose vial 10:16:00 [facility] SARS-COV-2 COVID-19 2021-03-25 Completed Unive rsity of MODERNA BOOSTER 00:00:00 [facility] ical VACCINE Branch SARS-COV-2 COVID-19 2021-03-25 Completed Unive rsity of [facility]ERNA BOOSTER 00:00:00 [facility] ical VACCINE Branch SARS-COV-2 COVID-19 2021-03-25 Completed [facility]ive rsity of MODERNA BOOSTER 00:00:00 [facility] VACCINE Branch SARS-COV-2 COVID-19 2021-03-25 Completed Unive rsity of MODERNA BOOSTER 00:00:00 [facility] ical VACCINE Branch SARS-COV-2 COVID-19 2021-03-25 Completed Unive rsity of MODERNA BOOSTER 00:00:00 [facility] ical VACCINE Branch SARS-COV-2 COVID-19 2021-03-25 Completed Unive rsity of MODERNA BOOSTER 00:00:00 [facility] ical VACCINE Branch SARS-COV-2 COVID-19 2021-03-25 Completed [facility] rs[facility] of MODERNA BOOSTER 00:00:00 [facility] VACCINE Branch SARS-COV-2 COVID-19 2021-03-25 Completed Unive [...] Unive rsity of MODERNA VACCINE 00:00:00 [facility] ical Branch SARS-COV-2 COVID-19 2020-07-19 Completed Unive [...] Unive rsity of MODERNA 12+ YRS 00:00:00 [facility] VACCINE Branch Influenza TIV (IM) 2013-02-[address] [facility] 00:00:00 [facility] Influenza TIV (IM) 2013-02-[address] [facility] 00[facility]00:00 [facility] Influenza Virus 2013-02-27 Completed Universit y of Vaccine 00:00:00 [facility] Influenza Virus 2013-02-27 Completed Universit y of Vaccine 00:00:00 [facility] Influenza Virus 2013-02-27 Completed Universit y of Vaccine 00:00:00 [facility] Influenza Virus 2013-02-27 Completed [facility]it y of Vaccine 00:00:00 [facility] Influenza Virus 2013-02-27 Completed Universit y of Vaccine 00:00:00 [facility] Influenza Virus 2013-02-27 Completed [facility]it y of Vaccine 00:00:00 [facility] Influenza Virus 2013-02-27 Completed Universit y of Vaccine 00:00:00 [facility] Influenza Virus 2013-02-27 Completed [facility]it y of Vaccine 00:00:00 [facility] Influenza Virus 2013-02-27 Completed [facility]it y of Vaccine 00:00:00 [facility] Influenza Virus 2013-02-27 Completed Universit y of Vaccine 00:00:00 [facility] Influenza Virus 2013-02-27 Completed [facility]it y of Vaccine 00:00:00 [facility] Influenza Virus 2013-02-27 Completed Universit y of Vaccine 00:00:00 [facility] Influenza Virus 2013-02-27 Completed Universit y of Vaccine 00:00:00 [facility] Influenza Virus 2013-02-27 Completed Universit y of Vaccine 00:00:00 [facility] Influenza Virus 2013-02-27 Completed [facility]it y of Vaccine 00:00:00 [facility] Influenza Virus 2013-02-27 Completed Universit y of Vaccine 00:00:00 [facility] Influenza Virus 2013-02-27 Completed Universit y of Vaccine 00:00:00 [facility] Influenza Virus 2013-02-27 Completed [facility]it y of Vaccine 00:00:00 [facility] Influenza Virus 2013-02-27 Completed [facility]it y of Vaccine 00:00:00 [facility] Influenza Virus 2013-02-27 Completed [facility]it y of Vaccine 00:00:00 [facility] Influenza Virus 2013-02-27 Completed Universit y of Vaccine 00:00:00 [facility] Influenza Virus 2013-02-27 Completed [facility]it y of Vaccine 00:00:00 [facility] Influenza Virus 2013-02-27 Completed [facility]it y of Vaccine 00:00:00 [facility] Influenza Virus 2013-02-27 Completed [facility]it y of Vaccine 00:00:00 [facility] Influenza Virus 2013-02-27 Completed Universit y of Vaccine 00:00:00 [facility] Influenza Virus 2013-02-27 Completed [facility]it y of Vaccine 00:00:00 [facility] Influenza Virus 2013-02-27 Completed [facility]it y of Vaccine 00:00:00 [facility] Influenza Virus 2013-02-27 Completed Universit y of Vaccine 00:00:00 [facility] Influenza Virus 2013-02-27 Completed Universit y of Vaccine 00:00:00 [facility] Influenza Virus 2013-02-27 Completed [facility]it y of Vaccine 00:00:00 [facility] Influenza Virus 2013-02-27 Completed Universit y of Vaccine 00:00:00 [facility] Influenza Virus 2013-02-27 Completed [facility]it y of Vaccine 00:00:00 [facility] Influenza Virus 2013-02-27 Completed [facility]it y of Vaccine 00:00:00 [facility] Influenza Virus 2013-02-27 Completed [facility]it y of Vaccine 00:00:00 [facility] Influenza Virus 2013-02-27 Completed [facility] y of Vaccine 00:00:00 [facility] Influenza Virus 2013-02-27 Completed [facility]it y of Vaccine 00:00:00 [facility] Influenza Virus 2013-02-27 Completed [facility]it y of Vaccine 00:00:00 [facility] Influenza Virus 2013-02-27 Completed Universit y of Vaccine 00:00:00 [facility] Influenza Virus 2013-02-27 Completed Universit y of Vaccine 00:00:00 [facility] Influenza Virus 2013-02-27 Completed Universit y of Vaccine 00:00:00 [facility] Influenza Virus 2013-02-27 Completed Universit y of Vaccine 00:00:00 [facility] Influenza Virus 2013-02-27 Completed Universit y of Vaccine 00:00:00 [facility] Influenza Virus 2013-02-27 Completed Universit y of Vaccine 00:00:00 [facility] Influenza Virus 2013-02-27 Completed Universit y of Vaccine 00:00:00 [facility] Influenza Virus 2013-02-27 Completed Universit y of Vaccine 00:00:00 [facility] Influenza Virus 2013-02-27 Completed Universit y of Vaccine 00:00:00 [facility] Influenza Virus 2013-02-27 Completed Universit y of Vaccine 00:00:00 [facility] Influenza Virus 2013-02-27 Completed Universit y of Vaccine 00:00:00 [facility] Influenza Virus 2013-02-27 Completed Universit y of Vaccine 00:00:00 [facility] Influenza Virus 2013-02-27 Completed Universit y of Vaccine 00:00:00 [facility] Influenza Virus 2013-02-27 Completed Universit y of Vaccine 00:00:00 [facility] Influenza Virus 2013-02-27 Completed Universit y of Vaccine 00:00:00 [facility] Influenza Virus 2013-02-27 Completed Universit y of Vaccine 00:00:00 [facility] Influenza Virus 2013-02-27 Completed Universit y of Vaccine 00:00:00 [facility] Influenza Virus 2013-02-27 Completed Universit y of Vaccine 00:00:00 [facility] Influenza Virus 2013-02-27 Completed Universit y of Vaccine 00:00:00 [facility] Influenza Virus 2013-02-27 Completed Universit y of Vaccine 00:00:00 [facility] Influenza Virus 2013-02-27 Completed [facility]it y of Vaccine 00:00:00 [facility] Influenza Virus 2013-02-27 Completed Universit y of Vaccine 00:00:00 [facility] Influenza Virus 2013-02-27 Completed Universit y of Vaccine 00:00:00 [facility] Influenza Virus 2013-02-27 Completed Universit y of Vaccine 00:00:00 [facility] Influenza Virus 2013-02-27 Completed [facility]it y of Vaccine 00:00:00 [facility] Influenza Virus 2013-02-27 Completed [facility]it y of Vaccine 00:00:00 [facility] Influenza Virus 2013-02-27 Completed Universit y of Vaccine 00:00:00 [facility] Influenza Virus 2013-02-27 Completed Universit y of Vaccine 00:00:00 [facility] Influenza Virus 2013-02-27 Completed Universit y of Vaccine 00:00:00 [facility] Influenza Virus 2013-02-27 Completed Universit y of Vaccine 00:00:00 [facility] Influenza Virus 2013-02-27 Completed Universit y of Vaccine 00:00:00 [facility] Influenza TIV (IM) 2013-02-[address] [facility] Vital Signs Vital Name Observation Time Observation Value Comments Source WEIGHT 2020-09-05 85.548 kg 19:05:00 WEIGHT 2020-08-28 83.9 kg 04:41:00 WEIGHT 2020-08-27 84.959 kg 05:27:00 WEIGHT 2020-08-26 85.821 kg 02:50:00 HEIGHT 2020-08-26 152.4 cm 02:50:00 Systolic blood 2022-01-27 141 mm[Hg] University of pressure 00:37:00 [facility] Diastolic blood 2022-01-27 92 mm[Hg] University o f pressure 00:37:00 [facility] Heart rate 2022-01-27 73 /min University of 00:37:00 [facility] Respiratory rate 2022-01-27 16 /min University of 00:37:00 [facility] Oxygen saturation 2022-01-27 98 /min [facility] in Arterial blood 00:37:00 [place] [facility] Pulse oximetry Branch Body weight 2022-01-26 72.122 kg University of 20:27:00 [facility] BMI 2022-01-26 31.05 kg/m2 University of 20:27:00 [facility] Body temperature 2022-01-26 37 Roro University of 20:26:00 [facility] Body height 2022-01-26 152.4 cm University of 20:26:00 [facility] Systolic blood 2021-11-02 159 mm[Hg] University of pressure 13:00:00 [facility] Diastolic blood 2021-11-02 98 mm[Hg] University o f pressure 13:00:00 [facility] Heart rate 2021-11-02 90 /min University of 13:00:00 [facility] Respiratory rate 2021-11-02 14 /min University of 13:00:00 [facility] Oxygen saturation 2021-11-02 97 /min University of in Arterial blood 13:00:00 [facility] [place] [facility] Pulse oximetry Branch Body temperature 2021-11-02 37.06 Roro University of 09:49:00 [facility] Body height 2021-11-02 152.4 cm University of 09:49:00 [facility] Body weight 2021-11-02 77.111 kg University of 09:49:00 [facility] BMI 2021-11-02 33.20 kg/m2 University of 09:49:00 [facility] Heart rate 2021-09-29 63 /min University of 15:42:00 [facility] Respiratory rate 2021-09-29 18 /min University of 15:42:00 [facility] Oxygen saturation 2021-09-29 99 /min University of in Arterial blood 15:42:00 [facility] brandy by Pulse oximetry Branch Systolic blood 2021-09-29 124 mm[Hg] University of pressure 15:40:00 [facility] Diastolic blood 2021-09-29 85 mm[Hg] University o f pressure 15:40:00 [facility] Body temperature 2021-09-29 36.39 Roro University of 14:41:00 [facility] Body height 2021-09-20 152.4 cm University of 15:00:00 [facility] Body weight 2021-09-20 78.5 kg University of 15:00:00 [facility] BMI 2021-09-20 33.80 kg/m2 University of 15:00:00 [facility] Systolic blood 2021-09-29 138 mm[Hg] University of pressure 15:15:00 [facility] Diastolic blood 2021-09-29 80 mm[Hg] University o f pressure 15:15:00 [facility] Heart rate 2021-09-29 63 /min University of 15:15:00 [facility] Respiratory rate 2021-09-29 11 /min University of 15:15:00 [facility] Oxygen saturation 2021-09-29 99 /min University of in Arterial blood 15:15:00 [facility] by Pulse oximetry Branch Body temperature 2021-09-29 36.39 Roro University of 14:41:00 [facility] Body height 2021-09-20 152.4 cm University of 15:00:00 [facility] Body weight 2021-09-20 78.5 kg University of 15:00:00 [facility] BMI 2021-09-20 33.80 kg/m2 University of 15:00:00 [facility] Respiratory rate 2021-09-29 10 /min University of 14:31:00 [facility] height 2021-09-21 62.00 [in_i] [facility] - 09:20:00 [facility] weight 2021-09-21 179 [lb_av] [facility] Spirit - :20: [facility] temperature 2021-09-21 97.4 [degF] [facility] Spirit - :20:00 [facility] bmi 2021-09-21 32.74 kg/m2 [facility] - :20:00 [facility] oximetry 2021-09-21 100 % [facility] - :20:00 [facility] respiratory rate 2021-09-21 15 /min [facility] - 09:20:00 [facility] blood pressure 2021-09-21 130 mm[Hg] [facility] - systolic 09:20:00 [facility] blood pressure 2021-09-21 82 mm[Hg] [facility] - diastolic 09:20:00 [facility] Systolic blood 2021-09-08 112 mm[Hg] [facility] pressure 21:35:00 [facility] Diastolic blood 2021-09-08 77 mm[Hg] University o f pressure 21:35:00 [facility] Heart rate 2021-09-08 64 /min University 21:35:00 [facility] Body temperature 2021-09-08 36.22 Roro University of 21:35:00 [facility] Respiratory rate 2021-09-08 18 /min University of 21:35:00 [facility] Oxygen saturation 2021-09-08 100 /min [facility] in Arterial blood 21:35:00 [facility] by Pulse oximetry [place] Body height 2021-09-02 152.4 cm University of 00:59:00 [facility] Body weight 2021-09-02 78.5 kg University of 00:59:00 [facility] BMI 2021-09-02 33.80 kg/m2 University of 00:59:00 [facility] Systolic blood 2021-08-27 169 mm[Hg] [facility] of pressure 20:00:00 [facility] Diastolic blood 2021-08-27 103 mm[Hg] University o f pressure 20:00:00 [facility] Heart rate 2021-08-27 66 /min University of 20:00:00 [facility] Respiratory rate 2021-08-27 11 /min University of 20:00:00 [facility] Oxygen saturation 2021-08-27 98 /min [facility] in Arterial blood 20:00:00 [facility] by Pulse oximetry Branch Body temperature 2021-08-27 36.17 Roro Simultaneous University 15:50:00 filing. User may [facility] not have seen Branch previous data. Body height 2021-08-27 152.4 cm University 15:50:00 [facility] Body weight 2021-08-27 81.647 kg University of 15:50:00 [facility] BMI 2021-08-27 35.15 kg/m2 University of 15:50:00 [facility] height 2021-08-07 62.00 [in_i] [facility] - 11:40:00 [facility] weight 2021-08-07 176.2 [lb_av] [facility] - 11:40:00 [facility] temperature 2021-08-07 98.0 [degF] [facility] - 11:40:00 [facility] bmi 2021-08-07 32.22 kg/m2 [facility] - 11:40:00 [facility] oximetry 2021-08-07 100 % [facility] - 11:40:00 [facility] respiratory rate 2021-08-07 18 /min [facility] - 11:40:00 [facility] blood pressure 2021-08-07 132 mm[Hg] [facility] - systolic 11:40:00 [facility] blood pressure 2021-08-07 82 mm[Hg] [facility] - diastolic 11:40:00 [facility] Systolic blood 2021-07-29 154 mm[Hg] [facility] of pressure 16:16:00 [facility] Diastolic blood 2021-07-29 91 mm[Hg] University o f pressure 16:16:00 [facility] Heart rate 2021-07-29 92 /min University 16:16:00 [facility] Body temperature 2021-07-29 36.44 Roro University 16:16:00 [facility] Respiratory rate 2021-07-29 16 /min University 16:16:00 [facility] Oxygen saturation 2021-07-29 98 /min [facility] in Arterial blood 16:16:00 [facility] by Pulse oximetry [place] Body weight 2021-07-28 86.63 kg University of 18:00:00 [facility] BMI 2021-07-28 37.30 kg/m2 University of 18:00:00 [facility] Body height 2021-07-24 152.4 cm University of 00:00:00 [facility] Systolic blood 2021-07-04 141 mm[Hg] [facility] of pressure 18:05:00 [facility] Diastolic blood 2021-07-04 95 mm[Hg] University o f pressure 18:05:00 [facility] Heart rate 2021-07-04 64 /min University of 18:05:00 [facility] Respiratory rate 2021-07-04 11 /min University of 18:05:00 [facility] Oxygen saturation 2021-07-04 96 /min [facility] of in Arterial blood 18:05:00 [place] [facility] Pulse oximetry [facility] Body temperature 2021-07-04 36.39 Roro University of 17:48:00 [facility] Body height 2021-07-03 152.4 cm University of 19:51:00 [facility] Body weight 2021-07-03 81.6 kg University of 19:51:00 [facility] BMI 2021-07-03 35.13 kg/m2 University of 19:51:00 [facility] Systolic blood 2021-07-04 141 mm[Hg] University of pressure 15:45:00 [facility] Diastolic blood 2021-07-04 97 mm[Hg] University o f pressure 15:45:00 [facility] Heart rate 2021-07-04 81 /min University of 15:45:00 [facility] Body temperature 2021-07-04 36.39 Roro University of 15:45:00 [facility] Respiratory rate 2021-07-04 20 /min University of 15:45:00 [facility] Oxygen saturation 2021-07-04 100 /min [facility] of in Arterial blood 15:45:00 [place] [facility] Pulse oximetry [facility] Body height 2021-07-03 152.4 cm University of 19:51:00 [facility] Body weight 2021-07-03 81.6 kg University of 19:51:00 [facility] BMI 2021-07-03 35.13 kg/m2 University of 19:51:00 [facility] height 2021-06-15 62.00 [in_i] [facility] - 08:40:[address] [facility] weight 2021-06-15 189 [lb_av] [facility] - 08:40:00 [facility] temperature 2021-06-15 97.3 [degF] [facility] Spirit - 08:40:00 [facility] bmi 2021-06-15 34.56 kg/m2 [facility] - 08:40:00 [facility] oximetry 2021-06-15 98 % [facility] - 08:40:00 [facility] respiratory rate 2021-06-15 18 /min [facility] - 08:40:00 [facility] blood pressure 2021-06-15 148 mm[Hg] [facility] - systolic 08:40:00 [facility] blood pressure 2021-06-15 92 mm[Hg] [facility] - diastolic 08:40:00 [facility] Systolic blood 2021-06-04 164 mm[Hg] [facility] pressure 04:00:00 [facility] Diastolic blood 2021-06-04 104 mm[Hg] University o f pressure 04:00:00 [facility] Heart rate 2021-06-04 64 /min [facility] 04:00:00 [facility] Oxygen saturation 2021-06-04 98 /min [facility] of in Arterial blood 04:00:00 [facility] by Pulse oximetry Branch Respiratory rate 2021-06-04 11 /min University of 03:00:00 [facility] Body temperature 2021-06-03 35.89 Roro University of 19:49:00 [facility] Body height 2021-06-03 152.4 cm University of 19:49:00 [facility] Body weight 2021-06-03 81.647 kg University of 19:49:00 [facility] BMI 2021-06-03 35.15 kg/m2 University of 19:49:00 [facility] Systolic blood 2021-05-22 151 mm[Hg] [facility] of pressure 07:00:00 [facility] Diastolic blood 2021-05-22 97 mm[Hg] University o f pressure 07:00:00 [facility] Heart rate 2021-05-22 93 /min University 07:00:00 [facility] Oxygen saturation 2021-05-22 96 /min [facility] in Arterial blood 07:00:00 [facility] Pulse [facility] Body temperature 2021-05-22 37.61 Roro University of 05:24:00 [facility] Respiratory rate 2021-05-22 20 /min [facility] 05:24:00 [facility] [facility] Body height 2021-05-22 152.4 cm [facility] 05:24:00 [facility] Body weight 2021-05-22 81.647 kg [facility] 05:24:00 [facility] BMI 2021-05-22 35.15 kg/m2 [facility] 05:24:00 [facility] Systolic blood 2021-05-18 139 mm[Hg] [facility] of pressure 15:16:00 [facility] Diastolic blood 2021-05-18 86 mm[Hg] [facility] o f pressure 15:16:00 [facility] Heart rate 2021-05-18 85 /min [facility] of 15:16:00 [facility] Body temperature 2021-05-18 36.39 Roro University of 15:16:00 [facility] Respiratory rate 2021-05-18 18 /min [facility] 15:16:00 [facility] Body height 2021-05-18 152.4 cm [facility] 15:16:00 [facility] Body weight 2021-05-18 87.862 kg University of 15:16:00 [facility] BMI 2021-05-18 37.83 kg/m2 [facility] 15:16:00 [facility] Oxygen saturation 2021-05-18 97 /min University in Arterial blood 15:16:00 [facility] by Pulse oximetry Branch Systolic blood 2021-04-15 163 mm[Hg] [facility] pressure 19:38:00 [facility] Diastolic blood 2021-04-15 105 mm[Hg] [facility] o f pressure 19:38:00 [facility] Heart rate 2021-04-15 98 /min [facility] 19:38:00 [facility] Body temperature 2021-04-15 37.06 Roro [facility] 19:38:00 [facility] Respiratory rate 2021-04-15 18 /min [facility] 19:38:00 [facility] Body height 2021-04-15 152.4 cm [facility] 19:38:00 [facility] Body weight 2021-04-15 81.647 kg [facility] 19:38:00 [facility] BMI 2021-04-15 35.15 kg/m2 [facility] 19:38:00 [facility] Oxygen saturation 2021-04-15 97 /min [facility] in Arterial blood 19:38:00 [facility] by Pulse oximetry Branch Systolic blood 2021-04-15 140 mm[Hg] [facility] pressure 19:20:00 [facility] Diastolic blood 2021-04-15 98 mm[Hg] [facility] o f pressure 19:20:00 [facility] Heart rate 2021-04-15 109 /min [facility] 19:20:00 [facility] Body temperature 2021-04-15 36.94 Roro [facility] 19:20:00 [facility] Respiratory rate 2021-04-15 17 /min [facility] 19:20:00 [facility] Body weight 2021-04-15 84.596 kg University 19:20:00 [facility] BMI 2021-04-15 36.42 kg/m2 University 19:20:00 [facility] Oxygen saturation 2021-04-15 98 /min [facility] in Arterial blood 19:20:00 [facility] by Pulse oximetry Branch height 2021-04-03 62.00 [in_i] [facility] - 09:00:00 [facility] weight 2021-04-03 189 [lb_av] [facility] - 09:00:00 [facility] temperature 2021-04-03 97.2 [degF] [facility] - 09:00:00 [facility] bmi 2021-04-03 34.56 kg/m2 [facility] - 09:00:00 [facility] oximetry 2021-04-03 95 % [facility] - 09:00:00 [facility] blood pressure 2021-04-03 138 mm[Hg] [facility] - systolic 09:00:00 [facility] blood pressure 2021-04-03 48 mm[Hg] [facility] - diastolic 09:00:00 [facility] Systolic blood 2021-03-26 138 mm[Hg] [facility] pressure 03:00:00 [facility] Diastolic blood 2021-03-26 89 mm[Hg] [facility] o f pressure 03:00:00 [facility] Heart rate 2021-03-26 75 /min University 03:00:00 [facility] Respiratory rate 2021-03-26 12 /min University 03:00:00 [facility] Oxygen saturation 2021-03-26 99 /min [facility] of in Arterial blood 03:00:00 [facility] by Pulse oximetry [facility] Body temperature 2021-03-26 37 Roro [facility] of 01:02:09 [facility] Body height 2021-03-26 152.4 cm [facility] of 00:10:00 [facility] Body weight 2021-03-26 80.74 kg University of 00:10:00 [facility] BMI 2021-03-26 34.76 kg/m2 [facility] of 00:10:00 [facility] Systolic blood 2021-03-21 173 mm[Hg] [facility] pressure 01:28:00 [facility] Diastolic blood 2021-03-21 104 mm[Hg] [facility] pressure 01:28:00 [facility] Heart rate 2021-03-21 74 /min [facility] of 01:28:00 [facility] Respiratory rate 2021-03-21 22 /min [facility] 01:28:00 [facility] Oxygen saturation 2021-03-21 96 /min [facility] in Arterial blood 01:28:00 [facility] by Pulse oximetry [facility] Body temperature 2021-03-20 37.17 Roro [facility] of 21:59:00 [facility] Body weight 2021-03-20 81.647 kg University of 21:59:00 [facility] BMI 2021-03-20 35.15 kg/m2 University of 21:59:00 [facility] Systolic blood 2021-02-13 159 mm[Hg] [facility] of pressure 02:02:00 [facility] Diastolic blood 2021-02-13 95 mm[Hg] [facility] o f pressure 02:02:00 [facility] Body temperature 2021-02-13 36.67 Roro [facility] of 02:02:00 [facility] Respiratory rate 2021-02-13 17 /min [facility] of 02:02:00 [facility] Oxygen saturation 2021-02-13 93 /min [facility] in Arterial blood 02:02:00 [facility] by Pulse oximetry [facility] Heart rate 2021-02-13 73 /min [facility] of 01:00:00 [facility] Body height 2021-02-12 152.4 cm [facility] of 19:07:00 [facility] Body weight 2021-02-12 86.183 kg University of 19:07:00 [facility] BMI 2021-02-12 37.11 kg/m2 University of 19:07:00 [facility] Systolic blood 2021-01-18 155 mm[Hg] [facility] of pressure 05:45:00 [facility] Diastolic blood 2021-01-18 93 mm[Hg] [facility] o f pressure 05:45:00 [facility] Heart rate 2021-01-18 86 /min [facility] of 05:45:00 [facility] Respiratory rate 2021-01-18 14 /min [facility] of 05:45:00 [facility] Oxygen saturation 2021-01-18 99 /min [facility] in Arterial blood 05:45:00 [facility] by Pulse oximetry Branch Body temperature 2021-01-18 37.06 Roro [facility] of 02:32:00 [facility] Body height 2021-01-18 152.4 cm University of 02:32:00 [facility] Body weight 2021-01-18 86.183 kg University of 02:32:00 [facility] BMI 2021-01-18 37.11 kg/m2 University of 02:32:00 [facility] Systolic blood 2021-01-07 117 mm[Hg] [facility] of pressure 16:25:00 [facility] Diastolic blood 2021-01-07 79 mm[Hg] [facility] o f pressure 16:25:00 [facility] Heart rate 2021-01-07 85 /min [facility] of 16:25:00 [facility] Body temperature 2021-01-07 36.89 Roro University of 16:25:00 [facility] Respiratory rate 2021-01-07 16 /min [facility] of 16:25:00 [facility] Body height 2021-01-07 152.4 cm [facility] of 16:25:00 [facility] Body weight 2021-01-07 77.111 kg University of 16:25:00 [facility] BMI 2021-01-07 33.20 kg/m2 University of 16:25:00 [facility] Oxygen saturation 2021-01-07 96 /min [facility] in Arterial blood 16:25:00 [facility] Pulse oximetry [facility] Systolic blood 2020-12-30 148 mm[Hg] [facility] of pressure 22:35:00 [facility] Diastolic blood 2020-12-30 107 mm[Hg] [facility] o f pressure 22:35:00 [facility] Heart rate 2020-12-30 78 /min [facility] of 22:35:00 [facility] Respiratory rate 2020-12-30 18 /min [facility] of 22:35:00 [facility] Oxygen saturation 2020-12-30 97 /min [facility] in Arterial blood 22:35:00 [facility] by Pulse oximetry [place] Body temperature 2020-12-30 37.44 Roro University of 18:12:00 [facility] Body height 2020-12-30 152.4 cm University of 18:12:00 [facility] Body weight 2020-12-30 77.111 kg University of 18:12:00 [facility] BMI 2020-12-30 33.20 kg/m2 University of 18:12:00 [facility] Systolic blood 2020-12-30 122 mm[Hg] [facility] of pressure 15:13:00 [facility] Diastolic blood 2020-12-30 87 mm[Hg] [facility] o f pressure 15:13:00 [facility] Heart rate 2020-12-30 83 /min [facility] of 15:13:00 [facility] Body temperature 2020-12-30 36.83 Roro University of 15:13:00 [facility] Respiratory rate 2020-12-30 18 /min [facility] of 15:13:00 [facility] Body height 2020-12-30 152.4 cm University of 15:13:00 [facility] Body weight 2020-12-30 83.553 kg University of 15:13:00 [facility] BMI 2020-12-30 35.97 kg/m2 University of 15:13:00 [facility] Systolic blood 2020-12-16 123 mm[Hg] [facility] of pressure 15:21:00 [facility] Diastolic blood 2020-12-16 90 mm[Hg] [facility] o f pressure 15:21:00 [facility] Heart rate 2020-12-16 81 /min [facility] of 15:21:00 [facility] Body temperature 2020-12-16 36.83 Roro University of 15:21:00 [facility] Respiratory rate 2020-12-16 18 /min [facility] of 15:21:00 [facility] Body height 2020-12-16 152.4 cm [facility] of 15:21:00 [facility] Body weight 2020-12-16 83.915 kg University of 15:21:00 [facility] BMI 2020-12-16 36.13 kg/m2 University of 15:21:00 [facility] Systolic blood 2020-12-16 123 mm[Hg] [facility] of pressure 15:21:00 [facility] Diastolic blood 2020-12-16 90 mm[Hg] [facility] o f pressure 15:21:00 [facility] Heart rate 2020-12-16 81 /min [facility] of 15:21:00 [facility] Body temperature 2020-12-16 36.83 Roro University of 15:21:00 [facility] Respiratory rate 2020-12-16 18 /min [facility] of 15:21:00 [facility] Body height 2020-12-16 152.4 cm [facility] of 15:21:00 [facility] Body weight 2020-12-16 83.915 kg University of 15::00 [facility] BMI 2020-12-16 36.13 kg/m2 University of 15:21:00 [facility] Systolic blood 2020-12-05 167 mm[Hg] [facility] of pressure 22:45:00 [facility] Diastolic blood 2020-12-05 101 mm[Hg] [facility] o f pressure 22:45:00 [facility] Heart rate 2020-12-05 76 /min [facility] of 22:45:00 [facility] Respiratory rate 2020-12-05 20 /min [facility] of 22:45:00 [facility] Oxygen saturation 2020-12-05 97 /min [facility] in Arterial blood 22:45:00 [facility] by Pulse oximetry [place] Body temperature 2020-12-05 37.11 Roro University of 19:05:00 [facility] Body weight 2020-12-05 77.111 kg University of 19:05:00 [facility] BMI 2020-12-05 33.20 kg/m2 University of 19:05:00 [facility] Systolic blood 2020-10-12 111 mm[Hg] [facility] of pressure 20:04:00 [facility] Diastolic blood 2020-10-12 77 mm[Hg] [facility] o f pressure 20:04:00 [facility] Heart rate 2020-10-12 74 /min University of 20:04:00 [facility] Body temperature 2020-10-12 36.06 Roro University of 20:04:00 [facility] Respiratory rate 2020-10-12 18 /min University of 20:04:00 [facility] Oxygen saturation 2020-10-12 97 /min [facility] in Arterial blood 20:04:00 [facility] by Pulse oximetry [facility] Body height 2020-10-12 152.4 cm University of 02:36:00 [facility] Body weight 2020-10-12 84.46 kg University of 02:36:00 [facility] BMI 2020-10-12 36.36 kg/m2 University of 02:36:00 [facility] Systolic blood 2020-10-12 111 mm[Hg] [facility] of pressure 20:04:00 [facility] Diastolic blood 2020-10-12 77 mm[Hg] [facility] o f pressure 20:04:00 [facility] Heart rate 2020-10-12 74 /min [facility] of 20:04:00 [facility] Body temperature 2020-10-12 36.06 Roro University of 20:04:00 [facility] Respiratory rate 2020-10-12 18 /min [facility] of 20:04:00 [facility] Oxygen saturation 2020-10-12 97 /min [facility] in Arterial blood 20:04:00 [facility] by Pulse oximetry [facility] Body height 2020-10-12 152.4 cm University of 02:36:00 [facility] Body weight 2020-10-12 84.46 kg University of 02:36:00 [facility] BMI 2020-10-12 36.36 kg/m2 University of 02:36:00 [facility] Systolic blood 2020-10-05 129 mm[Hg] [facility] of pressure 01:00:00 [facility] Diastolic blood 2020-10-05 88 mm[Hg] [facility] o f pressure 01:00:00 [facility] Heart rate 2020-10-05 72 /min University of 01:00:00 [facility] Respiratory rate 2020-10-05 18 /min [facility] of 01:00:00 [facility] Oxygen saturation 2020-10-05 95 /min [facility] in Arterial blood 01:00:00 [facility] by Pulse oximetry [place] Body temperature 2020-10-04 37.72 Roro University of 22:44:00 [facility] Body weight 2020-10-04 77.111 kg University of 22:44:00 [facility] BMI 2020-10-04 33.20 kg/m2 University of 22:44:00 [facility] Systolic blood 2020-10-05 129 mm[Hg] [facility] of pressure 01:00:00 [facility] Diastolic blood 2020-10-05 88 mm[Hg] [facility] o f pressure 01:00:00 [facility] Heart rate 2020-10-05 72 /min [facility] of 01:00:00 [facility] Respiratory rate 2020-10-05 18 /min [facility] of 01:00:00 [facility] Oxygen saturation 2020-10-05 95 /min [facility] in Arterial blood 01:00:00 [facility] Pulse oxim[facility] Body temperature 2020-10-04 37.72 Roro University of 22:44:00 [facility] Body weight 2020-10-04 77.111 kg University of 22:44:00 [facility] BMI 2020-10-04 33.20 kg/m2 [facility] of 22:44:00 [facility] WEIGHT 2020-09-05 85.548 kg 19:05:00 WEIGHT 2020-08-28 83.9 kg 04:41:00 WEIGHT 2020-08-27 84.959 kg 05:27:00 WEIGHT 2020-08-26 85.821 kg 02:50:00 HEIGHT 2020-08-26 152.4 cm 02:50:00 Systolic blood 2020-08-05 157 mm[Hg] [facility] of pressure 13:12:00 [facility] Diastolic blood 2020-08-05 128 mm[Hg] [facility] o f pressure 13:12:00 [facility] Heart rate 2020-08-05 95 /min [facility] of 13:12:00 [facility] Body temperature 2020-08-05 36.67 Roro University of 13:12:00 [facility] Respiratory rate 2020-08-05 18 /min [facility] of 13:12:00 [facility] Body weight 2020-08-05 77.111 kg University of 13:12:00 [facility] BMI 2020-08-05 33.20 kg/m2 [facility] of 13:12:00 [facility] Oxygen saturation 2020-08-05 98 /min [facility] in Arterial blood 13:12:00 [facility] Pulse o[facility] Systolic blood 2020-08-05 157 mm[Hg] [facility] of pressure 13:12:00 [facility] Diastolic blood 2020-08-05 128 mm[Hg] [facility] o f pressure 13:12:00 [facility] Heart rate 2020-08-05 95 /min University of 13:12:00 [facility] Body temperature 2020-08-05 36.67 Rroo University of 13:12:00 [facility] Respiratory rate 2020-08-05 18 /min University of 13:12:00 [facility] Body weight 2020-08-05 77.111 kg University of 13:12:00 [facility] BMI 2020-08-05 33.20 kg/m2 University of 13:12:00 [facility] Oxygen saturation 2020-08-05 98 /min [facility] in Arterial blood 13:12:00 [facility] by Pulse oximetry [facility] Systolic blood 2020-07-18 184 mm[Hg] [facility] of pressure 13:22:00 [facility] Diastolic blood 2020-07-18 110 mm[Hg] [facility] o f pressure 13:22:00 [facility] Heart rate 2020-07-18 71 /min [facility] of 13:22:00 [facility] Respiratory rate 2020-07-18 18 /min [facility] of 13:22:00 [facility] Oxygen saturation 2020-07-18 100 /min [facility] of in Arterial blood 13:22:00 [facility] by Pulse oximetry [facility] Body temperature 2020-07-18 36.56 Roro University of 12:49:00 [facility] Body height 2020-07-14 152.4 cm University of 16:45:00 [facility] Body weight 2020-07-14 77.111 kg University of 16:45:00 [facility] BMI 2020-07-14 33.20 kg/m2 University of 16:45:00 [facility] Systolic blood 2020-07-18 184 mm[Hg] [facility] of pressure 13:22:00 [facility] Diastolic blood 2020-07-18 110 mm[Hg] [facility] o f pressure 13:22:00 [facility] Heart rate 2020-07-18 71 /min University of 13:22:00 [facility] Respiratory rate 2020-07-18 18 /min [facility] of 13:22:00 [facility] Oxygen saturation 2020-07-18 100 /min [facility] in Arterial blood 13:22:00 [facility] by Pulse oximetry [facility] Body temperature 2020-07-18 36.56 Roro [facility] of 12:49:00 [facility] Body height 2020-07-14 152.4 cm University of 16:45:00 [facility] Body weight 2020-07-14 77.111 kg University of 16:45:00 [facility] BMI 2020-07-14 33.20 kg/m2 University of 16:45:00 [facility] Systolic blood 2020-07-18 180 mm[Hg] [facility] of pressure 12:59:00 [facility] Diastolic blood 2020-07-18 88 mm[Hg] University o f pressure 12:59:00 [facility] Heart rate 2020-07-18 74 /min [facility] of 12:59:00 [facility] Respiratory rate 2020-07-18 17 /min [facility] of 12:59:00 [facility] Oxygen saturation 2020-07-18 100 /min [facility] in Arterial blood 12:59:00 [facility] Body temperature 2020-07-18 36.56 Roro [facility] of 12:49:00 [facility] Body height 2020-07-14 152.4 cm University of 16:45:00 [facility] Body weight 2020-07-14 77.111 kg University of 16:45:00 [facility] BMI 2020-07-14 33.20 kg/m2 University of 16:45:00 [facility] Systolic blood 2020-07-18 180 mm[Hg] [facility] of pressure 12:59:00 [facility] Diastolic blood 2020-07-18 88 mm[Hg] [facility] o f pressure 12:59:00 [facility] Heart rate 2020-07-18 74 /min [facility] of 12:59:00 [facility] Respiratory rate 2020-07-18 17 /min [facility] of 12:59:00 [facility] Oxygen saturation 2020-07-18 100 /min [facility] in Arterial blood 12:59:00 [facility] Pulse o[facility] Body temperature 2020-07-18 36.56 Roro [facility] of 12:49:00 [facility] Body height 2020-07-14 152.4 cm University of 16:45:00 [facility] Body weight 2020-07-14 77.111 kg University of 16:45:00 [facility] BMI 2020-07-14 33.20 kg/m2 University of 16:45:00 [facility] Systolic blood 2020-07-08 187 mm[Hg] [facility] of pressure 02:00:00 [facility] Diastolic blood 2020-07-08 102 mm[Hg] [facility] o f pressure 02:00:00 [facility] Heart rate 2020-07-08 84 /min [facility] of 02:00:00 [facility] Respiratory rate 2020-07-08 20 /min [facility] of 02:00:00 [facility] Oxygen saturation 2020-07-08 100 /min [facility] in Arterial blood 02:00:00 [facility] Pulse oxim[facility] Body temperature 2020-07-07 37.22 Roro [facility] of 23:45:00 [facility] Body weight 2020-07-07 81.194 kg University of 23:45:00 [facility] BMI 2020-07-07 34.96 kg/m2 [facility] 23:45:00 [facility] Systolic blood 2020-07-08 187 mm[Hg] [facility] of pressure 02:00:00 [facility] Diastolic blood 2020-07-08 102 mm[Hg] University o f pressure 02:00:00 [facility] Heart rate 2020-07-08 84 /min [facility] of 02:00:00 [facility] Respiratory rate 2020-07-08 20 /min [facility] 02:00:00 [facility] Oxygen saturation 2020-07-08 100 /min University of in Arterial blood 02:00:00 [facility] by Pulse oximetry [facility] Body temperature 2020-07-07 37.22 Roro University of :45:00 [facility] Body weight 2020-07-07 81.194 kg University of :45:00 [facility] BMI 2020-07-07 34.96 kg/m2 University of 23:45:00 [facility] Systolic blood 2020-07-04 168 mm[Hg] [facility] pressure 13:34:00 [facility] Diastolic blood 2020-07-04 94 mm[Hg] [facility] o f pressure 13:34:00 [facility] Heart rate 2020-07-04 63 /min [facility] of 13:34:00 [facility] Oxygen saturation 2020-07-04 100 /min [facility] in Arterial blood 13:34:00 [facility] Pulse oximetry [facility] Respiratory rate 2020-07-04 12 /min [facility] of 13:23:00 [facility] Body temperature 2020-07-04 36.72 Roro [facility] 13:03:00 [facility] Body height 2020-07-01 152.4 cm [facility] of 17:45:00 [facility] Body weight 2020-07-01 81.647 kg [facility] of 17:45:00 [facility] BMI 2020-07-01 35.15 kg/m2 [facility] of 17:45:00 [facility] Systolic blood 2020-07-04 168 mm[Hg] [facility] pressure 13:34:00 [facility] Diastolic blood 2020-07-04 94 mm[Hg] [facility] o f pressure 13:34:00 [facility] Heart rate 2020-07-04 63 /min [facility] of 13:34:00 [facility] Oxygen saturation 2020-07-04 100 /min [facility] of in Arterial blood 13:34:00 [facility] Pulse oximetry [facility] Respiratory rate 2020-07-04 12 /min [facility] 13:23:00 [facility] Body temperature 2020-07-04 36.72 Roro [facility] 13:03:00 [facility] Body height 2020-07-01 152.4 cm [facility] 17:45:00 [facility] Body weight 2020-07-01 81.647 kg [facility] of 17:45:00 [facility] BMI 2020-07-01 35.15 kg/m2 [facility] 17:45:00 [facility] Systolic blood 2020-06-20 148 mm[Hg] [facility] pressure 14:33:00 [facility] Diastolic blood 2020-06-20 86 mm[Hg] [facility] o f pressure 14:33:00 [facility] Heart rate 2020-06-20 70 /min [facility] of 14:33:00 [facility] Respiratory rate 2020-06-20 11 /min [facility] 14:33:00 [facility] Oxygen saturation 2020-06-20 98 /min [facility] of in Arterial blood 14:33:00 [facility] Pulse oxim[facility] Body temperature 2020-06-20 36.33 Roro [facility] 14:18:00 [facility] Body height 2020-06-20 152.4 cm University of 12:30:00 [facility] Body weight 2020-06-20 81.647 kg University of 12:30:00 [facility] BMI 2020-06-20 35.15 kg/m2 [facility] of 12:30:00 [facility] Systolic blood 2020-06-20 148 mm[Hg] [facility] pressure 14:33:00 [facility] Diastolic blood 2020-06-20 86 mm[Hg] [facility] o f pressure 14:33:00 [facility] Heart rate 2020-06-20 70 /min [facility] 14:33:00 [facility] Respiratory rate 2020-06-20 11 /min [facility] 14:33:00 [facility] Oxygen saturation 2020-06-20 98 /min [facility] of in Arterial blood 14:33:00 [facility] by Pulse oximetry [facility] Body temperature 2020-06-20 36.33 Roro [facility] 14:18:00 [facility] Body height 2020-06-20 152.4 cm [facility] of 12:30:00 [facility] Body weight 2020-06-20 81.647 kg [facility] of 12:30:00 [facility] BMI 2020-06-20 35.15 kg/m2 [facility] of 12:30:00 [facility] Respiratory rate 2020-06-20 17 /min [facility] 14:12:00 [facility] Respiratory rate 2020-06-20 17 /min [facility] 14:12:00 [facility] Systolic blood 2020-05-07 122 mm[Hg] [facility] pressure 00:05:00 [facility] Diastolic blood 2020-05-07 77 mm[Hg] [facility] f pressure 00:05:00 [facility] Heart rate 2020-05-07 61 /min [facility] of 00:05:00 [facility] Respiratory rate 2020-05-07 17 /min [facility] of 00:05:00 [facility] Oxygen saturation 2020-05-07 100 /min [facility] of in Arterial blood 00:05:00 [facility] by Pulse oximetry [facility] Body temperature 2020-05-06 37.06 Roro [facility] 21:17:00 [facility] Body height 2020-05-06 152.4 cm [facility] 21:17:00 [facility] Body weight 2020-05-06 77.111 kg [facility] 21:17:00 [facility] BMI 2020-05-06 33.20 kg/m2 [facility] of 21:17:00 [facility] Systolic blood 2020-05-07 122 mm[Hg] [facility] pressure 00:05:00 [facility] Diastolic blood 2020-05-07 77 mm[Hg] [facility] o f pressure 00:05:00 [facility] Heart rate 2020-05-07 61 /min [facility] 00:05:00 [facility] Respiratory rate 2020-05-07 17 /min [facility] of 00:05:00 [facility] Oxygen saturation 2020-05-07 100 /min [facility] in Arterial blood 00:05:00 [facility] o[facility] Body temperature 2020-05-06 37.06 Roro [facility] 21:17:00 [facility] Body height 2020-05-06 152.4 cm [facility] of 21:17:00 [facility] Body weight 2020-05-06 77.111 kg University of 21:17:00 [facility] BMI 2020-05-06 33.20 kg/m2 [facility] of 21:17:00 [facility] Systolic blood 2020-03-26 170 mm[Hg] [facility] pressure 07:00:00 [facility] Diastolic blood 2020-03-26 110 mm[Hg] [facility] o f pressure 07:00:00 [facility] Heart rate 2020-03-26 77 /min [facility] of 07:00:00 [facility] Respiratory rate 2020-03-26 18 /min [facility] of 07:00:00 [facility] Oxygen saturation 2020-03-26 96 /min [facility] in Arterial blood 07:00:00 [facility] Pulse oxim[facility] Body temperature 2020-03-26 37.67 Roro [facility] 03:07:00 [facility] Body height 2020-03-26 152.4 cm [facility] 03:07:00 [facility] Body weight 2020-03-26 77.111 kg University of 03:07:00 [facility] BMI 2020-03-26 33.20 kg/m2 University of 03:07:00 [facility] Systolic blood 2020-03-26 170 mm[Hg] [facility] pressure 07:00:00 [facility] Diastolic blood 2020-03-26 110 mm[Hg] [facility] o f pressure 07:00:00 [facility] Heart rate 2020-03-26 77 /min [facility] 07:00:00 [facility] Respiratory rate 2020-03-26 18 /min [facility] of 07:00:00 [facility] Oxygen saturation 2020-03-26 96 /min [facility] in Arterial blood 07:00:00 [facility] Pulse oxim[facility] Body temperature 2020-03-26 37.67 Roro [facility] 03:07:00 [facility] Body height 2020-03-26 152.4 cm [facility] of 03:07:00 [facility] Body weight 2020-03-26 77.111 kg [facility] of 03:07:00 [facility] BMI 2020-03-26 33.20 kg/m2 [facility] of 03:07:00 [facility] Systolic blood 2020-02-08 134 mm[Hg] [facility] pressure 20:21:00 [facility] Diastolic blood 2020-02-08 94 mm[Hg] [facility] o f pressure 20:21:00 [facility] Heart rate 2020-02-08 76 /min [facility] of 20::00 [facility] Body temperature 2020-02-08 36.11 Roro [facility] 20:21:00 [facility] Respiratory rate 2020-02-08 17 /min [facility] of 20:21:00 [facility] Oxygen saturation 2020-02-08 100 /min [facility] of in Arterial blood 20:21:00 [facility] by Pulse oximetry [facility] Body weight 2020-02-03 80.468 kg [facility] of 08:16:00 [facility] BMI 2020-02-03 34.65 kg/m2 [facility] of 08:16:00 [facility] Systolic blood 2020-02-08 134 mm[Hg] [facility] pressure 20:21:00 [facility] Diastolic blood 2020-02-08 94 mm[Hg] [facility] o f pressure 20:21:00 [facility] Heart rate 2020-02-08 76 /min [facility] of 20::00 [facility] Body temperature 2020-02-08 36.11 Roro [facility] 20::00 [facility] Respiratory rate 2020-02-08 17 /min [facility] 20::00 [facility] Oxygen saturation 2020-02-08 100 /min [facility] in Arterial blood 20:21:00 [facility] by Pulse oximetry [facility] Body weight 2020-02-03 80.468 kg [facility] of 08:16:00 [facility] BMI 2020-02-03 34.65 kg/m2 [facility] of 08:16:00 [facility] Systolic blood 2019-12-18 113 mm[Hg] [facility] pressure 23:30:00 [facility] Diastolic blood 2019-12-18 76 mm[Hg] [facility] o f pressure 23:30:00 [facility] Heart rate 2019-12-18 57 /min [facility] 23:30:00 [facility] Respiratory rate 2019-12-18 18 /min [facility] 23:30:00 [facility] Oxygen saturation 2019-12-18 99 /min [facility] in Arterial blood 23:30:00 [facility] Pulse oxim[facility] Body temperature 2019-12-18 36.67 Roro [facility] 20:24:00 [facility] Body height 2019-12-18 152.4 cm University of 20:24:00 [facility] Body weight 2019-12-18 77.111 kg [facility] of 20:24:00 [facility] BMI 2019-12-18 33.20 kg/m2 [facility] of 20:24:00 [facility] Systolic blood 2019-12-18 113 mm[Hg] [facility] pressure 23:30:00 [facility] Diastolic blood 2019-12-18 76 mm[Hg] [facility] o f pressure 23:30:00 [facility] Heart rate 2019-12-18 57 /min [facility] 23:30:00 [facility] Respiratory rate 2019-12-18 18 /min [facility] 23:30:00 [facility] Oxygen saturation 2019-12-18 99 /min [facility] in Arterial blood 23:30:00 [facility] by Pulse oximetry [place] Body temperature 2019-12-18 36.67 Roro [facility] 20:24:00 [facility] Body height 2019-12-18 152.4 cm [facility] 20:24:00 [facility] Body weight 2019-12-18 77.111 kg [facility] of 20:24:00 [facility] BMI 2019-12-18 33.20 kg/m2 [facility] 20:24:00 [facility] Systolic blood 2019-08-22 159 mm[Hg] [facility] pressure 04:28:00 [facility] Diastolic blood 2019-08-22 99 mm[Hg] [facility] pressure 04:28:00 [facility] Heart rate 2019-08-22 66 /min [facility] of 04:28:00 [facility] Respiratory rate 2019-08-22 18 /min [facility] 04:28:00 [facility] Oxygen saturation 2019-08-22 95 /min [facility] in Arterial blood 04:28:00 [facility] by Pulse oximetry [place] Body temperature 2019-08-22 36.61 Roro [facility] 00:48:43 [facility] Body height 2019-08-22 152.4 cm [facility] of 00:44:00 [facility] Body weight 2019-08-22 86.183 kg [facility] of 00:44:00 [facility] BMI 2019-08-22 37.11 kg/m2 [facility] 00:44:00 [facility] Systolic blood 2019-08-22 159 mm[Hg] [facility] pressure 04:28:00 [facility] Diastolic blood 2019-08-22 99 mm[Hg] [facility] o f pressure 04:28:00 [facility] Heart rate 2019-08-22 66 /min [facility] of 04:28:00 [facility] Respiratory rate 2019-08-22 18 /min [facility] of 04:28:00 [facility] Oxygen saturation 2019-08-22 95 /min [facility] in Arterial blood 04:28:00 [facility] Pulse oxim[facility] Body temperature 2019-08-22 36.61 Roro [facility] 00:48:43 [facility] Body height 2019-08-22 152.4 cm [facility] of 00:44:00 [facility] Body weight 2019-08-22 86.183 kg University of 00:44:00 [facility] BMI 2019-08-22 37.11 kg/m2 [facility] of 00:44:00 [facility] Heart rate 2019-06-26 93 /min [facility] of 00:53:00 [facility] Oxygen saturation 2019-06-26 94 /min [facility] in Arterial blood 00:53:00 [facility] by Pulse oximetry [facility] Systolic blood 2019-06-26 149 mm[Hg] [facility] pressure 00:45:00 [facility] Diastolic blood 2019-06-26 106 mm[Hg] [facility] o f pressure 00:45:00 [facility] Respiratory rate 2019-06-26 16 /min [facility] of 00:45:00 [facility] Body temperature 2019-06-25 37.17 Roro [facility] 20:48:00 [facility] Body height 2019-06-25 152.4 cm [facility] of 20:48:00 [facility] Body weight 2019-06-25 88.451 kg University of 20:48:00 [facility] BMI 2019-06-25 38.08 kg/m2 [facility] of 20:48:00 [facility] Heart rate 2019-06-26 93 /min [facility] of 00:53:00 [facility] Oxygen saturation 2019-06-26 94 /min [facility] in Arterial blood 00:53:00 [facility] Pulse o[facility] Systolic blood 2019-06-26 149 mm[Hg] [facility] pressure 00:45:00 [facility] Diastolic blood 2019-06-26 106 mm[Hg] [facility] o f pressure 00:45:00 [facility] Respiratory rate 2019-06-26 16 /min [facility] of 00:45:00 [facility] Body temperature 2019-06-25 37.17 Roro [facility] of 20:48:00 [facility] Body height 2019-06-25 152.4 cm University of 20:48:00 [facility] Body weight 2019-06-25 88.451 kg University of 20:48:00 [facility] BMI 2019-06-25 38.08 kg/m2 [facility] of 20:48:00 [facility] Systolic blood 2019-06-20 157 mm[Hg] [facility] pressure 00:30:00 [facility] Diastolic blood 2019-06-20 89 mm[Hg] [facility] o [facility] pressure 00:30:00 [facility] Heart rate 2019-06-20 70 /min [facility] of 00:30:00 [facility] Oxygen saturation 2019-06-20 97 /min [facility] in Arterial blood 00:30:00 [facility] Pulse oxim[facility] Respiratory rate 2019-06-20 14 /min [facility] 00:04:00 [facility] Body height 2019-06-19 152.4 cm [facility] of 19:46:00 [facility] Body weight 2019-06-19 88.451 kg University of 19:46:00 [facility] BMI 2019-06-19 38.08 kg/m2 [facility] of 19:46:00 [facility] Body temperature 2019-06-19 37.06 Roro [facility] 19:45:00 [facility] Systolic blood 2019-06-20 157 mm[Hg] [facility] pressure 00:30:00 [facility] Diastolic blood 2019-06-20 89 mm[Hg] [facility] o [facility] pressure 00:30:00 [facility] Heart rate 2019-06-20 70 /min [facility] of 00:30:00 [facility] Oxygen saturation 2019-06-20 97 /min [facility] in Arterial blood 00:30:00 [facility] Pulse oxim[facility] Respiratory rate 2019-06-20 14 /min [facility] 00:04:00 [facility] Body height 2019-06-19 152.4 cm [facility] of 19:46:00 [facility] Body weight 2019-06-19 88.451 kg University of 19:46:00 [facility] BMI 2019-06-19 38.08 kg/m2 [facility] of 19:46:00 [facility] Body temperature 2019-06-19 37.06 Roro [facility] 19:45:00 [facility] Systolic blood 2019-05-20 141 mm[Hg] [facility] pressure 02:59:00 [facility] Diastolic blood 2019-05-20 97 mm[Hg] [facility] pressure 02:59:00 [facility] Heart rate 2019-05-20 86 /min [facility] of 02:59:00 [facility] Respiratory rate 2019-05-20 16 /min [facility] 02:59:00 [facility] Oxygen saturation 2019-05-20 94 /min [facility] in Arterial blood 02:59:00 [facility] Body temperature 2019-05-20 36.61 Roro [facility] 00:45:32 [facility] Body weight 2019-05-20 81.647 kg University of 00:16:00 [facility] BMI 2019-05-20 35.15 kg/m2 [facility] of 00:16:00 [facility] Systolic blood 2019-05-20 141 mm[Hg] [facility] pressure 02:59:00 [facility] Diastolic blood 2019-05-20 97 mm[Hg] [facility] o [facility] pressure 02:59:00 [facility] Heart rate 2019-05-20 86 /min [facility] of 02:59:00 [facility] Respiratory rate 2019-05-20 16 /min [facility] of 02:59:00 [facility] Oxygen saturation 2019-05-20 94 /min [facility] in Arterial blood 02:59:00 [facility] by Pulse oximetry [facility] Body temperature 2019-05-20 36.61 Roro [facility] 00:45:32 [facility] Body weight 2019-05-20 81.647 kg University of 00:16:00 [facility] BMI 2019-05-20 35.15 kg/m2 [facility] of 00:16:00 [facility] Systolic blood 2018-12-18 134 mm[Hg] [facility] of pressure 13:38:00 [facility] Diastolic blood 2018-12-18 96 mm[Hg] [facility] o f pressure 13:38:00 [facility] Heart rate 2018-12-18 75 /min [facility] of 13:38:00 [facility] Respiratory rate 2018-12-18 18 /min [facility] of 13:38:00 [facility] Body height 2018-12-18 152.4 cm [facility] 13:38:00 [facility] Body weight 2018-12-18 88.451 kg [facility] of 13:38:00 [facility] BMI 2018-12-18 38.08 kg/m2 [facility] of 13:38:00 [facility] Systolic blood 2018-12-08 159 mm[Hg] [facility] pressure 20:03:00 [facility] Diastolic blood 2018-12-08 111 mm[Hg] [facility] pressure 20:03:00 [facility] Body height 2018-12-08 152.4 cm [facility] of 20:03:00 [facility] Body weight 2018-12-08 88.451 kg [facility] of 20:03:00 [facility] BMI 2018-12-08 38.08 kg/m2 [facility] 20:03:00 [facility] Systolic blood 2018-12-05 180 mm[Hg] [facility] pressure 13:04:00 [facility] Diastolic blood 2018-12-05 110 mm[Hg] [facility] o [facility] pressure 13:04:00 [facility] Heart rate 2018-12-05 74 /min [facility] of 13:04:00 [facility] Respiratory rate 2018-12-05 18 /min [facility] of 12:57:00 [facility] Body height 2018-12-05 152.4 cm [facility] of 12:57:00 [facility] Body weight 2018-12-05 88.451 kg University of 12:57:00 [facility] BMI 2018-12-05 38.08 kg/m2 [facility] of 12:57:00 [facility] Systolic blood 2018-12-01 139 mm[Hg] [facility] of pressure 23:03:00 [facility] Diastolic blood 2018-12-01 72 mm[Hg] [facility] o f pressure 23:03:00 [facility] Heart rate 2018-12-01 64 /min [facility] of 23:03:00 [facility] Respiratory rate 2018-12-01 13 /min [facility] 22:02:00 [facility] Body temperature 2018-12-01 36.33 Roro [facility] of 19:27:00 [facility] Body height 2018-12-01 152.4 cm University of 19:27:00 [facility] Body weight 2018-12-01 88.451 kg University of 19:27:00 [facility] BMI 2018-12-01 38.08 kg/m2 University of 19:27:00 [facility] Oxygen saturation 2018-12-01 88 /min [facility] in Arterial blood 19:27:00 [facility] by Pulse oximetry [facility] Systolic blood 2018-11-17 145 mm[Hg] reported to RN University of pressure 17:00:00 [facility] Diastolic blood 2018-11-17 80 mm[Hg] reported to RN University of pressure 17:00:00 [facility] Heart rate 2018-11-17 54 /min [facility] 17:00:00 [facility] Body temperature 2018-11-17 36.72 Roro [facility] 17:00:00 [facility] Respiratory rate 2018-11-17 16 /min [facility] 17:00:00 [facility] Oxygen saturation 2018-11-17 95 /min [facility] in Arterial blood 17:00:00 [facility] by Pulse oximetry [place] Body height 2018-11-15 152.4 cm [facility] 22:07:00 [facility] Body weight 2018-11-15 88.587 kg [facility] 21:18:00 [facility] BMI 2018-11-15 38.14 kg/m2 [facility] 21:18:00 [facility] Procedures Procedure Date / Time Performing Source Performed Clinician CT ABDOMEN PELVIS W CONTRAST 2022-01-26 Meka Hammonds [facility] 21:34:36 [facility] LIPASE 2022-01-26 Meka Hammonds [facility] 21:07:00 [facility] COMP. METABOLIC PANEL (11698) 2022-01-26 Meka Hammonds [facility] 21:07:00 [facility] ETHANOL 2022-01-26 Meka Hammonds [facility] 21:07:00 [facility] CBC WITH DIFF 2022-01-26 Meka Hammonds [facility] 21:07:00 [facility] URINALYSIS 2022-01-26 Meka Hammonds [facility] [facility] 21:07:00 [facility] URINE DRUG (IMMUNOASSAY) - 2022-01-26 Meka Hammonds Univ ersity of COMPREHENSIVE DRUG SCREEN W/O 21:07:[address] [facility] CONSENT/REFUSAL FOR DIAGNOSIS AND 2022-01-26 Doctor Dung santiago, [facility] 20:04:49 Risco [facility] INSURANCE CORRESPONDENCE 2022-01-02 Doctor Unassigned, Univ ersity of 05:01:00 Risco [facility] CT ABDOMEN PELVIS W CONTRAST 2021-11-02 Mariana Ramirez Uni versity of 12:20:54 [facility] LIPASE 2021-11-02 Mariana Ramirez University of 10:40:00 [facility] COMP. METABOLIC PANEL ([id number]) 2021-11-02 Mariana Ramirez Un iversity of 10:40:00 [facility] CBC WITH DIFF 2021-11-02 Mariana Ramirez [employer] of 10:40:00 [facility] PROTHROMBIN TIME / INR 2021-11-02 [facility] 10:40:00 [facility] ACTIVATED PARTIAL THRMPLAS KIMANI 2021-11-02 Mariana Ramirez niversity of 10:40:00 [facility] CONSENT/REFUSAL FOR DIAGNOSIS AND 2021-11-02 Doctor Dung santiago [facility] 09:27:03 Risco [facility] AUTHORIZATION FOR RELEASE OF PHI 2021-10-25 Doctor Adrienne [facility] 05:01:00 Risco [facility] FL TIME OR (NON-REPORTABLE) 2021-09-29 Zulema Rodriguez [facility] ersity of 14:39:00 [facility] FL TIME OR (NON-REPORTABLE) 2021-09-29 Zulema Rodriguez [facility] ersity of 14:39:00 [facility] FOOT ARTHRODESIS 2021-09-29 Zulema Rodriguez [employer] of 12:40:00 [facility] DAY SURGERY - ADC 2021-09-29 Doctor Dong, [facility] 05:01:00 Risco [facility] ASSIGNMENT OF BENEFITS 2021-09-27 Doctor Unasschad, Univer sity of 15:03:24 Risco [facility] EXTERNAL PROVIDER RECORDS 2021-09-20 Doctor Unassigned, Uni versity of 05:01:00 Risco [facility] EXTERNAL PROVIDER RECORDS 2021-09-20 Doctor Unassigned, Uni versity of 05:01:00 Risco [facility] EXTERNAL PROVIDER RECORDS 2021-09-19 Doctor Unassigned, Uni versity of 05:01:00 Risco [facility] EXTERNAL PROVIDER RECORDS 2021-09-19 Doctor Unassigned, Uni versity of 05:01:00 Risco [facility] MAGNESIUM 2021-09-08 [facility] of 09:16:00 [facility] COMP. METABOLIC PANEL ([id number]) 2021-09-08 [place] iversity of 09:16:00 [facility] CBC WITH DIFF 2021-09-08 [facility] of 09:16:00 [facility] MAGNESIUM 2021-09-07 [facility] of 07:41:00 [facility] HEPATIC FUNCTION PANEL ([id number]) 2021-09-07 [facility], [facility] U niversity of (ALB,T.PRO,BILI 07:41:00 [facility] T,BU/BC,ALT,AST,ALK PHOS) Branch BASIC METABOLIC PANEL (NA, K, CL, 2021-09-07 [facility] CO2, GLUCOSE, BUN, CREATININE, CA) 07:41:00 [facility] CBC WITH DIFF 2021-09-07 [facility] of 07:41:00 [facility] MR ABDOMEN W WO CONTRAST MRCP 2021-09-06 [facility], [facility] iversity of 15:50:18 [facility] MAGNESIUM 2021-09-06 [facility] of 09:32:00 [facility] HEPATIC FUNCTION PANEL ([id number]) 2021-09-06 [facility], [facility] of (ALB,T.PRO,BILI 09:32:00 [facility] T,BU/BC,ALT,AST,ALK PHOS) Branch BASIC METABOLIC PANEL (NA, K, CL, 2021-09-06 Jerry, [facility] of CO2, GLUCOSE, BUN, CREATININE, CA) 09:32:00 [facility] MAGNESIUM 2021-09-05 [facility] of 08:23:00 [facility] HEPATIC FUNCTION PANEL ([id number]) 2021-09-05 [facility], [facility] niversity of (ALB,T.PRO,BILI 08:23:00 [facility] T,BU/BC,ALT,AST,ALK PHOS) Branch BASIC METABOLIC PANEL (NA, K, CL, 2021-09-05 [facility] CO2, GLUCOSE, BUN, CREATININE, CA) 08:23:00 [facility] CBC WITH DIFF 2021-09-05 [facility] of 08:23:00 [facility] MAGNESIUM 2021-09-04 [facility], [facility] of 09:15:00 [facility] HEPATIC FUNCTION PANEL ([id number]) 2021-09-04 [facility], [facility] niversity of (ALB,T.PRO,BILI 09:15:00 [facility] T,BU/BC,ALT,AST,ALK PHOS) Branch BASIC METABOLIC PANEL (NA, K, CL, 2021-09-04 Nguyễn, [employer] of CO2, GLUCOSE, BUN, CREATININE, CA) 09:15:00 [facility] CBC WITH DIFF 2021-09-04 [facility], [facility] of 09:15:00 [facility] MAGNESIUM 2021-09-03 [facility], [facility] of 09:25:00 [facility] COMP. METABOLIC PANEL ([id number]) 2021-09-03 [place] iversity of 09:25:00 [facility] CBC WITH DIFF 2021-09-03 [facility], [facility] of 09:25:00 [facility] CMV BY PCR 2021-09-03 [facility], [facility] of 03:30:00 [facility] HSV 1&2, VZV NAAT 2021-09-03 [facility] of 03:30:00 [facility] ACETAMINOPHEN 2021-09-02 [facility] of 15:34:00 [facility] HEPATITIS B SURFACE ANTIBODY 2021-09-02 [facility], [facility] versity of 15:34:00 [facility] HCV ANTIBODY 2021-09-02 [facility], [facility] of 15:34:00 [facility] HBC ANTIBODY (IGM & IGG) 2021-09-02 [facility] ity of 15:34:00 [facility] CBC WITH DIFF 2021-09-02 [facility] of 15:33:00 [facility] EBV QUANTITATIVE PCR 2021-09-02 [facility] of 15:33:00 [facility] SMOOTH MUSCLE AB,IGG W/REFLEX 2021-09-02 [place] iversity of 15:32:00 [facility] PHOSPHORUS 2021-09-02 [facility], [facility] of 15:32:00 [facility] MAGNESIUM 2021-09-02 [facility], [facility] of 15:32:00 [facility] FERRITIN SERUM 2021-09-02 [facility] of 15:32:00 [facility] CERULOPLASMIN 2021-09-02 [facility], [facility] of 15:32:00 [facility] ALPHA 1 ANTITRYPSIN 2021-09-02 [facility], [facility] o f 15:32:00 [facility] IMMUNOGLOBULIN G 2021-09-02 [facility], [facility] of 15:32:00 [facility] COMP. METABOLIC PANEL ([id number]) 2021-09-02 Manjinder Nguyễnh Un iversity of 15:32:00 [facility] ANTI-NUCLEAR ANTIBODY SCREEN 2021-09-02 Nguyễn [facility] Uni versity of 15:32:00 [facility] HEPATITIS B SURFACE ANTIGEN 2021-09-02 [facility] Univ ersity of 15:32:00 [facility] HAV ANTIBODY (IGG AND IGM) 2021-09-02 [facility] Unive rsity of 15:32:00 [facility] ANTI-NUCLEAR ANTIBODY TITER 2021-09-02 [facility] ersity of 15:32:00 [facility] ANTI-NUCLEAR ANTIBODY-PATHOLOGIST 2021-09-02 [facility] of INTERPRETATION 15:32:00 [facility] PROTHROMBIN TIME / INR 2021-09-02 [facility] Universit y of 15:31:00 [facility] HB ECG ROUTINE & RHYTHM STRIP 2021-09-02 Flower Sheryl iversity of 13:42:19 [facility] US ABDOMEN LIMITED 2021-09-02 Sheryl Crenshaw [facility] of 05:27:56 [facility] HB ECG ROUTINE & RHYTHM STRIP 2021-09-01 Jaki Polanco Un iversity of 18:43:41 [facility] XR CHEST 1 VW 2021-09-01 Jaki Polanco [employer] of 18:38:41 [facility] LIPASE 2021-09-01 Jaki Polanco [employer] of 18:37:00 [facility] MAGNESIUM 2021-09-01 Jaki Polanco [employer] of 18:37:00 [facility] TROPONIN I 2021-09-01 Jaki Polanco [employer] of 18:37:00 [facility] COMP. METABOLIC PANEL ([id number]) 2021-09-01 Jaki Polanco iversity of 18:37:00 [facility] CBC WITH DIFF 2021-09-01 Jaki Polanco [employer] of 18:37:00 [facility] URINALYSIS 2021-09-01 Jaki Polanco [employer] of 18:37:00 [facility] HOSPITAL ADMISSION 2021-09-01 Doctor Unassigned, [employer] of 05:01:00 Risco [facility] CT ABDOMEN PELVIS W CONTRAST 2021-08-27 Maru Baez [employer] of 17:00:42 [facility] URINALYSIS 2021-08-27 Maru Baez [employer] of 16:26:00 [facility] LIPASE 2021-08-27 Maru Baez [employer] of 15:59:00 [facility] TROPONIN I 2021-08-27 Maru Baez [employer] of 15:59:00 [facility] COMP. METABOLIC PANEL ([id number]) 2021-08-27 Maru Baez [employer] of 15:59:00 [facility] CBC WITH DIFF 2021-08-27 Maru Baez [employer] of 15:59:00 [facility] CONSENT/REFUSAL FOR DIAGNOSIS AND 2021-08-27 [facility] 15:44:40 Risco [facility] POCT GLUCOSE (AUTOMATED) 2021-07-28 Liliya Hinojosa ity of 22:28:00 [facility] RENAL ARTERY DUPLEX - BY VASCULAR 2021-07-28 Gatito [facility] LAB 20:54:00 Fatou [facility] POCT GLUCOSE (AUTOMATED) 2021-07-28 Liliya Hinojosa ity of 16:45:00 [facility] POCT GLUCOSE (AUTOMATED) 2021-07-28 Liliya Hinojosa ity of 12:52:00 [facility] LIPASE 2021-07-28 Liliya Hinojosa of 09:31:00 [facility] COMP. METABOLIC PANEL ([id number]) 2021-07-28 Liliya Hinojosa iversity of 09:31:00 [facility] CBC WITH DIFF 2021-07-28 Liliya Hinojosa of 09:31:00 [facility] POCT GLUCOSE (AUTOMATED) 2021-07-28 Liliya Hinojosa ity of 09:08:00 [facility] POCT GLUCOSE (AUTOMATED) 2021-07-28 Liliya Hinojosa ity of 04:38:00 [facility] POCT GLUCOSE (AUTOMATED) 2021-07-28 Liliya Hinojosa ity of 01:02:00 [facility] POCT GLUCOSE (AUTOMATED) 2021-07-27 Liliya Hinojosa ity of 21:47:00 [facility] POCT GLUCOSE (AUTOMATED) 2021-07-27 Liliya Hinojosa ity of 16:48:00 [facility] POCT GLUCOSE (AUTOMATED) 2021-07-27 Liliya Hinojosa [facility] ity of 12:43:00 [facility] MAGNESIUM 2021-07-27 G[place]ito [facility] of 08:55:00 [facility] BASIC METABOLIC PANEL (NA, K, CL, 2021-07-27 [employer] of CO2, GLUCOSE, BUN, CREATININE, CA) 08:55:00 [facility] CBC WITH DIFF 2021-07-27 Gatito [facility] of 08:55:00 [facility] POCT GLUCOSE (AUTOMATED) 2021-07-27 Liliya Hinojosa [facility] ity of 08:47:00 [facility] POCT GLUCOSE (AUTOMATED) 2021-07-27 Liliya Hinojosa [facility] ity of 06:48:00 [facility] POCT GLUCOSE (AUTOMATED) 2021-07-27 Liliya Hinojosa [facility] ity of 01:50:00 [facility] POCT GLUCOSE (AUTOMATED) 2021-07-26 Liliya Hinojosa Univers ity of 21:50:00 [facility] POCT GLUCOSE (AUTOMATED) 2021-07-26 Liliya Hinojosa [facility] ity of 16:50:00 [facility] LIPASE 2021-07-26 [employer] of 09:59:00 [facility] MAGNESIUM 2021-07-26 G[place] [facility] of 09:59:00 [facility] BASIC METABOLIC PANEL (NA, K, CL, 2021-07-26 [employer] of CO2, GLUCOSE, BUN, CREATININE, CA) 09:59:00 [facility] CBC WITH DIFF 2021-07-26 [employer] of 09:59:00 [facility] EKG-12 LEAD 2021-07-25 Liliya Hinojosa [employer] of 23:35:46 [facility] POCT GLUCOSE (AUTOMATED) 2021-07-25 Liliya Hinojosa [facility] ity of 14:19:00 [facility] HEPATIC FUNCTION PANEL ([id number]) 2021-07-25 [employer] niversity of (ALB,T.PRO,BILI 12:28:00 [facility],BU/BC,ALT,AST,ALK PHOS) [place] BASIC METABOLIC PANEL (NA, K, CL, 2021-07-25 Gatito [facility] of CO2, GLUCOSE, BUN, CREATININE, CA) 12:28:00 [facility] CBC WITH DIFF 2021-07-25 [place] [facility] of 10:59:00 [facility] MAGNESIUM 2021-07-24 Liliya Hinojosa [employer] of 10:49:00 [facility] HEPATIC FUNCTION PANEL ([id number]) 2021-07-24 Liliya Hinojosa niversity of (ALB,T.PRO,BILI 10:49:00 [facility],BU/BC,ALT,AST,ALK PHOS) [place] BASIC METABOLIC PANEL (NA, K, CL, 2021-07-24 Brigido Hinojosa [employer] of CO2, GLUCOSE, BUN, CREATININE, CA) 10:49:00 [facility] CBC WITH DIFF 2021-07-24 Liliya Hinojosa [employer] of 09:16:00 [facility] PHOSPHORUS 2021-07-24 Micaela Liliya [employer] of 00:43:00 [facility] CT ABDOMEN PELVIS W CONTRAST 2021-07-23 Meka Hammonds Un iversity of 22:53:27 [facility] LIPASE 2021-07-23 Meka Hammonds [facility] 21:19:00 [facility] MAGNESIUM 2021-07-23 Meka Hammonds [facility] 21:19:00 [facility] TROPONIN I 2021-07-23 Meka Hammonds [employer] of 21:19:00 [facility] COMP. METABOLIC PANEL ([id number]) 2021-07-23 Meka Hammonds U niversity of 21:19:00 [facility] D-DIMER 2021-07-23 Meka Hammodns [facility] 21:19:00 [facility] CBC WITH DIFF 2021-07-23 Meka Hammonds [facility] 21:18:00 [facility] URINALYSIS 2021-07-23 Meka Hammonds [facility] 21:18:00 [facility] XR CHEST 1 VW 2021-07-23 Meka Hammonds [employer] of 21:03:00 [facility] HB ECG ROUTINE & RHYTHM STRIP 2021-07-23 Meka Hammonds U niversity of 20:31:58 [facility] CONSENT/REFUSAL FOR DIAGNOSIS AND 2021-07-23 Doctor Dung santiago, [employer] [facility] TREATMENT 20:20:48 Risco [facility] ESOPHAGOGASTRODUODENOSCOPY 2021-07-04 Gulshan Piper rsity of 17:04:00 [facility] EGD (ENDO) 2021-07-04 Jeannie Slade [facility] of 16:11:40 [facility] EGD (ENDO) 2021-07-04 Jeannie Slade [employer] of 16:11:40 [facility] DAY SURGERY - ADC 2021-07-04 Doctor Unassigned, University of 05:01:00 Risco [facility] EXTERNAL PROVIDER RECORDS 2021-06-23 Doctor Unassigned, Uni versity of 06:01:00 Risco [facility] EXTERNAL PROVIDER RECORDS 2021-06-23 Doctor Unassigned, Uni versity of 06:01:00 Risco [facility] CT ABDOMEN PELVIS W CONTRAST 2021-06-04 Mariana Ramirez Uni versity of 01:33:00 [facility] US GALL BLADDER 2021-06-03 Mariana Ramirez of 23:57:52 [facility] LIPASE 2021-06-03 Mariana Ramirez of 20:30:00 [facility] TROPONIN I 2021-06-03 Mariana Ramirez of 20:30:00 [facility] COMP. METABOLIC PANEL ([id number]) 2021-06-03 Mariana Ramirez iversity of 20:30:00 [facility] CBC WITH DIFF 2021-06-03 Mariana Ramirez of 20:30:00 [facility] PROTHROMBIN TIME / INR 2021-06-03 Mariana Ramirezit y of 20:30:00 [facility] ACTIVATED PARTIAL THRMPLAS KIMANI 2021-06-03 Mariana Ramirez niversity of 20:30:00 [facility] N-TERMINAL PRO-BNP 2021-06-03 Mariana Ramirez of 20:30:00 [facility] COVID-19 (ID NOW RAPID TESTING) 2021-06-03 Mariana Ramirez of 20:30:00 [facility] LACTIC ACID WHOLE BLOOD 2021-06-03 Mariana Ramirezi ty of 20:26:00 [facility] XR CHEST 1 VW 2021-06-03 Mariana Ramirez of 20:15:36 [facility] CONSENT/REFUSAL FOR DIAGNOSIS AND 2021-06-03 [facility] 19:39:18 Risco [facility] EKG-12 LEAD 2021-05-22 Consuelo Avendaño of 06:47:40 [facility] CT CHEST PULMONARY ANGIOGRAM 2021-05-22 Consuelo Avendaño Uni versity of 06:08:50 [facility] TROPONIN I 2021-05-22 [facility] 05:41:00 [facility] COMP. METABOLIC PANEL ([id number]) 2021-05-22 Consuelo Avendaño Un iversity of 05:41:00 [facility] CBC WITH DIFF 2021-05-22 Consuelo Avendaño [employer] of 05:41:00 [facility] N-TERMINAL PRO-BNP 2021-05-22 Consuelo Avendaño [employer] of 05:41:00 [facility] NOTICE OF PRIVACY PRACTICES 2021-05-22 Doctor Unassigned, U niversity of 05:17:11 Risco [facility] CONSENT/REFUSAL FOR DIAGNOSIS AND 2021-05-22 [facility] 05:13:31 Risco [facility] POCT MOLECULAR FLU 2021-05-18 [facility] of 15:26:00 [facility] POCT MOLECULAR STREP 2021-05-18 [facility] of 15:22:00 [facility] COVID-19 (ID NOW RAPID TESTING) 2021-04-15 Consuelo Avendaño of 20:37:00 [facility] CT ABDOMEN PELVIS W CONTRAST 2021-04-15 Consuelo Avendaño Uni versity of 20:23:27 [facility] LIPASE 2021-04-15 Consuelo Avendaño [employer] of 20:23:00 [facility] TROPONIN I 2021-04-15 Consuelo Avendaño of 20:23:00 [facility] COMP. METABOLIC PANEL ([id number]) 2021-04-15 Consuelo Avendaño Un iversity of 20:23:00 [facility] CBC WITH DIFF 2021-04-15 Consuelo Avendaño of 20:23:00 [facility] URINALYSIS 2021-04-15 Ebrahim, [facility] 20:23:00 [facility] CONSENT/REFUSAL FOR DIAGNOSIS AND 2021-04-15 Doctor Dung santiago, [facility] 19:33:08 Risco [facility] CT ABDOMEN PELVIS W CONTRAST 2021-03-26 Consuelo Avendaño Uni versity of 02:08:33 [facility] LIPASE 2021-03-26 [facility] 00:57:00 [facility] TROPONIN I 2021-03-26 [facility] 00:57:00 [facility] COMP. METABOLIC PANEL ([id number]) 2021-03-26 Consuelo Avendaño Un iversity of 00:57:00 [facility] CBC WITH DIFF 2021-03-26 [facility] 00:57:00 [facility] URINALYSIS 2021-03-26 [facility] 00:57:00 [facility] N-TERMINAL PRO-BNP 2021-03-26 [facility] 00:57:00 [facility] XR CHEST 1 VW [facility]03-[facility] 00:17[facility]07 [facility] CONSENT/REFUSAL FOR DIAGNOSIS AND 2021-03-25 Doctor Dung santiago, [facility] 23:45:22 Risco [facility] SARS-COV-2 COVID-19 VACCINE 2021-03-25 Doctor Unassigned, U niversity of BOOSTER,0.25ML,IM (MODERNA) 17:05:57 Risco [facility] COMP. METABOLIC PANEL ([id number]) 2021-03-20 Meka Hammonds U niversity of 23:40:00 [facility] CT ABDOMEN PELVIS W CONTRAST 2021-03-20 Meka Hammonds Un iversity of 23:00:43 [facility] LIPASE 2021-03-20 Meka Hammonds [facility] 22:41:00 [facility] TROPONIN I 2021-03-20 Meka Hammonds [facility] 22:41:00 [facility] CBC WITH DIFF 2021-03-20 Meka Hammonds [facility] 22:41:00 [facility] NOTICE OF PRIVACY PRACTICES 2021-03-20 Doctor Unassigned, U niversity of 21:43:47 Risco [facility] CONSENT/REFUSAL FOR DIAGNOSIS AND 2021-03-20 Doctor Dung santiago [facility] 21:43:12 Risco [facility] CT ABDOMEN PELVIS W CONTRAST 2021-02-12 [facility] n[facility] of 22:22:23 [facility] LIPASE 2021-02-12 [facility] of 19:54:00 [facility] COMP. METABOLIC PANEL ([id number]) 2021-02-12 [facility] of 19:54:00 [facility] CBC WITH DIFF 2021-02-12 [facility] of 19:54:00 [facility] URINALYSIS 2021-02-12 [facility] of 19:54:00 [facility] CONSENT/REFUSAL FOR DIAGNOSIS AND 2021-02-12 Doctor Dung santiago [facility] 19:03:31 Risco [place] [facility] COMP. METABOLIC PANEL ([id number]) 2021-01-18 Maru Baez [facility] 04:11:00 [facility] CT ABDOMEN PELVIS W CONTRAST 2021-01-18 Maru Baez [facility] 03:35:25 [facility] LIPASE 2021-01-18 Maru Baez [facility] 02:54:00 [facility] CBC WITH DIFF 2021-01-18 Maru Baez [facility] 02:54:00 [facility] URINALYSIS 2021-01-18 Maru Baez [facility] 02:54:00 [facility] CONSENT/REFUSAL FOR DIAGNOSIS AND 2021-01-18 [facility] 02:23:56 Risco [facility] XR CHEST 2 VW 2021-01-07 Consuelo Avendaño [facility] 16:49:00 [facility] COVID-19 (ID NOW RAPID TESTING) 2020-12-30 Maru Baez [facility] 22:02:00 [facility] CT ABDOMEN PELVIS W CONTRAST 2020-12-30 Maru Baez [facility] 18:49:58 [facility] LIPASE 2020-12-30 Maru Baez [facility] 18:29:00 [facility] HEPATIC FUNCTION PANEL ([id number]) 2020-12-30 Maru Baez [facility] (ALB,T.PRO,BILI 18:29:00 [facility] T,BU/BC,ALT,AST[facility] BASIC [facility]ABOLIC PANEL (NA, K, CL, 2020-12-30 Jerilyn Baez ra [facility] CO2, GLUCOSE, BUN, CREATININE, CA) 18:29:00 [facility] CBC WITH DIFF 2020-12-30 Maru Baez [facility] 18:29:00 [facility] URINALYSIS 2020-12-30 Maru Baez [facility] 18:29:00 [facility] CONSENT/REFUSAL FOR DIAGNOSIS AND 2020-12-30 Doctor Dung santiago, [facility] 18:01:18 Risco [facility] PELVIS COMPLETE WITH 2020-12-23 [address] of TRANSVAGINAL 21:36:03 [facility] US GALL BLADDER 2020-12-05 Alirio Poole [facility] 22:39:34 F [facility] LACTIC ACID WHOLE BLOOD 2020-12-05 Alirio Poole [facility] sity of 22:16:00 F [facility] CT ABDOMEN PELVIS W CONTRAST 2020-12-05 Alirio Poole U niversity of 21:23:47 F [facility] ASSIGNMENT OF BENEFITS 2020-12-05 Doctor Unassigned, [facility] sity of 20:53:22 Risco [facility] LIPASE 2020-12-05 Maru Baez [facility] 20:12:00 [facility] COMP. METABOLIC PANEL ([id number]) 2020-12-05 Maru Baez [facility] 20:12:00 [facility] CBC WITH DIFF 2020-12-05 Maru Baez [facility] 20:12:00 [facility] URINALYSIS 2020-12-05 Maru Baez [facility] 20:12:00 [facility] CONSENT/REFUSAL FOR DIAGNOSIS AND 2020-12-05 Doctor Dung santiago [facility] 18:56:42 Risco [facility] MAGNESIUM 2020-10-12 Chandler [facility] 08:21:00 [facility] HEPATIC FUNCTION PANEL ([id number]) 2020-10-12 Chandler, U niversity of (ALB,T.PRO,BILI 08:21:00 [facility] T,BU/BC,ALT,AST,ALK PHOS) [place] LIPID PANEL ([id number])(TOTAL 2020-10-12 Ruth Becerra of CHOLESTEROL, TRIGLYCERIDES, HDL) 08:21:00 Desirae [facility] CBC WITH DIFF 2020-10-12 [facility], [facility] 08:21:00 [facility] PROTHROMBIN TIME / INR 2020-10-12 [facility], Universit y of 08:21:00 [facility] ACTIVATED PARTIAL THRMPLAS KIMANI 2020-10-12 [facility], U niversity of 08:21:00 [facility] HEPATIC FUNCTION PANEL ([id number]) 2020-10-12 [facility], U niversity of (ALB,T.PRO,BILI 03:31:00 [facility] T,BU/BC,ALT,AST,ALK PHOS) [place] BASIC METABOLIC PANEL (NA, K, CL, 2020-10-12 [place], [employer] of CO2, GLUCOSE, BUN, CREATININE, CA) 03:31:00 [facility] COVID-19 (ID NOW RAPID TESTING) 2020-10-11 Mariana Ramirez of 16:15:00 [facility] US GALL BLADDER 2020-10-11 Mariana Ramirez of 15:26:59 [facility] HB ECG ROUTINE & RHYTHM STRIP 2020-10-11 Mariana Ramirez Un iversity of 13:53:00 [facility] LIPASE 2020-10-11 Mariana Ramirez of 13:49:00 [facility] TROPONIN I 2020-10-11 Mariana Ramirez of 13:49:00 [facility] HEPATIC FUNCTION PANEL ([id number]) 2020-10-11 Mariana Ramirez niversity of (ALB,T.PRO,BILI 13:49:00 [facility] T,BU/BC,ALT,AST,ALK PHOS) [place] BASIC METABOLIC PANEL (NA, K, CL, 2020-10-11 Florina Ramirez University of CO2, GLUCOSE, BUN, CREATININE, CA) 13:49:00 [facility] CBC WITH DIFF 2020-10-11 Mariana Ramirez of 13:49:00 [facility] URINALYSIS 2020-10-11 Mariana Ramirez of 13:49:00 [facility] CONSENT/REFUSAL FOR DIAGNOSIS AND 2020-10-11 Doctor Dung santiago, [facility] 13:29:15 Risco [facility] COVID-19 (ID NOW RAPID TESTING) 2020-10-04 Maisha Reyes [facility] 23:19:00 [facility] URINALYSIS 2020-10-04 Maisha Reyes [facility] 23:18:00 [facility] LIPASE 2020-10-04 Maisha Reyes [facility] 23:17:00 [facility] COMP. METABOLIC PANEL ([id number]) 2020-10-04 Maisha Reyes iversity of 23:17:00 [facility] CBC WITH DIFF 2020-10-04 Maisha Reyes [facility] 23:17:00 [facility] CONSENT/REFUSAL FOR DIAGNOSIS AND 2020-08-05 Doctor Dung santiago [facility] 13:05:44 Risco [facility] FL TIME OR (NON-REPORTABLE) 2020-07-18 Moise Gamez niversity of 12:50:00 [facility] FL TIME OR (NON-REPORTABLE) 2020-07-18 Moise Gamez niversity of 12:50:00 [facility] BLOCK EPIDURAL 2020-07-18 Moise Gamez [facility] 12:25:00 [facility] POCT GLUCOSE (AUTOMATED) 2020-07-18 Moise Gamez [facility] ersity of 12:01:00 [facility] POCT GLUCOSE (AUTOMATED) 2020-07-18 Moise Gamez [facility] ersity of 12:01:00 [facility] DAY SURGERY - ADC 2020-07-18 Doctor Iker, [facility] 05:01:00 Risco [facility] CT ABDOMEN PELVIS W CONTRAST 2020-07-08 Jaki Polanco Uni versity of 00:59:19 [facility] LIPASE 2020-07-08 Jaki Polanco [facility] 00:23:00 [facility] MAGNESIUM 2020-07-08 Jaki Polanco [facility] 00:23:00 [facility] TROPONIN I 2020-07-08 Jaki Polanco [facility] 00:23:00 [facility] COMP. METABOLIC PANEL ([id number]) 2020-07-08 Jaki Polanco Un iversity of 00:23:00 [facility] CBC WITH DIFF 2020-07-08 Jaki Polanco [employer] of 00:23:00 [facility] URINALYSIS 2020-07-08 Jaki Polanco [facility] 00:23:00 [facility] COVID-19 (ID NOW RAPID TESTING) 2020-07-08 Jaki Polanco [facility] 00:23:00 [facility] XR CHEST 1 VW 2020-07-08 Jaki Polanco [facility] 00:01:58 [facility] CONSENT/REFUSAL FOR DIAGNOSIS AND 2020-07-07 Doctor Dung santiago [facility] 23:40:12 Risco [facility] FL TIME OR (NON-REPORTABLE) 2020-07-04 Moise Gamez U niversity of 13:10:00 [facility] 2020-07-04 Doctor Iker [facility] 05:01:00 Risco [facility] ASSIGNMENT OF BENEFITS 2020-07-01 Doctor Iker, Univer sity of 14:01:02 Risco [facility] FL TIME OR (NON-REPORTABLE) 2020-06-20 Moise Gamez U niversity of 14:12:00 [facility] 2020-06-20 Doctor Dong [facility] 06:01:00 Risco [facility] ASSIGNMENT OF BENEFITS 2020-06-17 Doctor Padmasschad, Univer sity of 21:21:05 Risco [facility] CONSENT/REFUSAL FOR DIAGNOSIS AND 2020-06-15 Doctor Dung santiago [facility] 20:59:25 Risco [facility] CONSENT/REFUSAL FOR DIAGNOSIS AND 2020-06-15 Doctor Dung santiago [facility] 20:59:25 Risco [facility] ASSIGNMENT OF BENEFITS 2020-06-15 Doctor Padmasschad, Univer sity of 20:59:08 Risco [facility] ASSIGNMENT OF BENEFITS 2020-06-15 Doctor Iker, Univer sity of 20:59:08 Risco [facility] CONSENT/REFUSAL FOR DIAGNOSIS AND 2020-06-15 Doctor Dung santiago [facility] 20:58:52 Risco [facility] CONSENT/REFUSAL FOR DIAGNOSIS AND 2020-06-15 Doctor Dung santiago [facility] 20:58:52 Risco [facility] ASSIGNMENT OF BENEFITS 2020-06-15 Doctor Unassigned, Univer sity of 20:58:37 Risco [facility] ASSIGNMENT OF BENEFITS 2020-06-15 Doctor Unassigned, Univer sity of 20:58:37 Risco [facility] NOTICE OF PRIVACY PRACTICES 2020-06-15 Doctor Unassigned, U niversity of 20:58:21 Risco [facility] NOTICE OF PRIVACY PRACTICES 2020-06-15 Doctor Unassigned, U niversity of 20:58:21 Risco [facility] CONSENT/REFUSAL FOR DIAGNOSIS AND 2020-06-15 [facility] 20:58:08 Risco [facility] CONSENT/REFUSAL FOR DIAGNOSIS AND 2020-06-15 [facility] 20:58:08 Risco [facility] ASSIGNMENT OF BENEFITS 2020-06-15 Doctor Unassigned, Univer sity of 20:57:50 Risco [facility] ASSIGNMENT OF BENEFITS 2020-06-15 Doctor Unassigned, Univer sity of 20:57:50 Risco [facility] DSU PRE-OP 2020-06-15 Doctor Iker, [facility] 06:01:00 Risco [facility] DSU PRE-OP 2020-06-15 Doctor Unaantonio, [facility] 06:01:00 Risco [facility] HEPATIC FUNCTION PANEL ([id number]) 2020-05-06 [facility] (ALB,T.PRO,BILI 22:56:00 [facility],BU/BC,ALT,AST,ALK PHOS) [place] BASIC METABOLIC PANEL (NA, K, CL, 2020-05[facility]06 [facility] CO2, GLUCOSE, BUN, CREATININE, CA) 22:56:00 [facility] XR CHEST 1 VW 2020-05-06 [facility] 21:44:02 [facility] LIPASE 2020-05-06 [facility] 21:40:00 [facility] TROPONIN I 2020-05-06 [facility] 21:40:00 [facility] CBC WITH DIFF 2020-05-06 [facility] of 21:40:00 [facility] URINALYSIS 2020-05-06 [facility] of 21:32:00 [facility] COVID-19 (ID NOW RAPID TESTING) 2020-05-06 [facility] of 21:32:00 [facility] NOTICE OF PRIVACY PRACTICES 2020-05-06 Doctor Unassigned, U niversity of 21:14:50 Risco [facility] CONSENT/REFUSAL FOR DIAGNOSIS AND 2020-05-06 [facility] 21:14:25 Risco [facility] CT ABDOMEN PELVIS W CONTRAST 2020-03-26 Erasmo Grayson Un iversity of 06:12:05 [facility] URINALYSIS 2020-03-26 Erasmo Grayson [facility] of 05:02:00 [facility] LIPASE 2020-03-26 [facility] of 03:38:00 [facility] COMP. METABOLIC PANEL ([id number]) 2020-03-26 Erasmo Grayson U niversity of 03:38:00 [facility] CBC WITH DIFF 2020-03-26 Erasmo Grayson [facility] of 03:38:00 [facility] COVID-19 (ID NOW RAPID TESTING) 2020-03-26 Erasmo Grayson [facility] of 03:38:00 [facility] CONSENT/REFUSAL FOR DIAGNOSIS AND 2020-03-26 [facility] 02:58:31 Risco [facility] REFERRAL- REQUEST/RESPONSE 2020-03-18 Doctor Unassigned, Un iversity of 06:01:00 Risco [facility] MR BRAIN WO CONTRAST 2020-02-08 Monet Dominguez [facility] y of 13:47:00 Ali [facility] BASIC METABOLIC PANEL (NA, K, CL, 2020-02-07 [facility] of CO2, GLUCOSE, BUN, CREATININE, CA) 08:51:00 [facility] CBC WITH DIFF 2020-02-07 [facility] of 08:51:00 [facility] COMP. METABOLIC PANEL ([id number]) 2020-02-05 Alex Mcknight Un iversity of 09:37:00 [facility] CBC WITH DIFF 2020-02-05 Alex Mcknight [facility] of 09:37:00 [facility] MR CERVICAL SPINE WO CONTRAST 2020-02-05 Get [facility] Un iversity of 00:24:54 [facility] MAGNESIUM 2020-02-04 Juan Luis, [facility] of 10:01:00 [facility] COMP. METABOLIC PANEL ([id number]) 2020-02-04 Alex Mcknight Un iversity of 10:01:00 [facility] CBC WITH DIFF 2020-02-04 [facility] of 10:01:00 [facility] N-TERMINAL PRO-BNP 2020-02-04 Juan Luis, [facility] of 10:01:00 [facility] BLOOD CULTURE SCREEN 2020-02-03 Juan Luis, Alex [employer] of 22:19:00 [facility] RENAL ARTERY DUPLEX BY VASCULAR 2020-02-03 Alex Mcknight [employer] [facility] LAB 17:42:39 [facility] AMMONIA, PLASMA 2020-02-03 Juan Luis, [facility] of 17:06:00 [facility] SMOOTH MUSCLE AB,IGG W/REFLEX 2020-02-03 Charafeddine, Un iversity of 16:43:00 Nizar C [facility] OCCULT (GUAIAC) BLOOD 2020-02-03 Alex Mcknight [employer] of 16:42:00 [facility] PHOSPHORUS 2020-02-03 Juan Luis, [facility] of 08:45:00 [facility] CREATINE KINASE 2020-02-03 Juan Luis, [facility] of 08:45:00 [facility] URIC ACID 2020-02-03 Juan Luis [facility] of 08:45:00 [facility] MAGNESIUM 2020-02-03 Juan Luis, [facility] of 08:45:00 [facility] COMP. METABOLIC PANEL ([id number]) 2020-02-03 Alex Mcknight Un iversity of 08:45:00 [facility] CBC WITH DIFF 2020-02-03 Alex Mcknight [employer] [facility] 08:45:00 [facility] N-TERMINAL PRO-BNP 2020-02-03 Juan Luis, [facility] of 08:45:00 [facility] BLOOD CULTURE SCREEN 2020-02-02 Juan Luis, [facility] of 20:19:00 [facility] BLOOD CULTURE SCREEN 2020-02-02 Juan Luis [facility] of 19:58:00 [facility] CERULOPLASMIN 2020-02-02 [facility] of 19:58:00 Niperri Connie [facility] VALPROIC ACID, FREE 2020-02-02 [facility], [facility] o f 19:58:00 [facility] PROTHROMBIN TIME / INR 2020[facility]02[facility]02 [facility] 19:58:00 [facility] ANTI-NUCLEAR ANTIBODY SCREEN 2020-02-02 Ross, Uni versity of 19:58:00 Kenroy Rosales [facility] HEPATITIS B SURFACE ANTIBODY 2020-02-02 [facility], [facility] Uni versity of 19:58:00 [facility] HEPATITIS B SURFACE ANTIGEN 2020-02-02 [facility], [facility] ersity of 19:58:00 [facility] HCV ANTIBODY 2020-02-02 [facility], [facility] of 19:58:00 [facility] HAV ANTIBODY (IGG AND IGM) 2020[facility]02-02 [facility] 19:58:00 [facility] PROCALCITONIN 2020-02-02 [facility] of 19:58:00 [facility] BLOOD CULTURE WORKUP 2020-02-02 [facility] of 19:58:00 [facility] CREATINE KINASE 2020-02-02 [facility] of 11:31:00 [facility] LIPASE 2020-02-02 [facility] of 11:31:00 [facility] COMP. METABOLIC PANEL ([id number]) 2020-02-02 [facility] iversity of 11:31:00 [facility] LIPID PANEL ([id number])(TOTAL 2020-02-02 [facility] CHOLESTEROL, TRIGLYCERIDES, HDL) 11:31:00 [facility] LITHIUM 2020-02-02 [facility] of 11:31:00 [facility] POCT GLUCOSE (AUTOMATED) 2020-02-02 Liliya Hinojosa [facility] ity of 11:24:00 [facility] LIPASE 2020-02-02 LisandroLiliya [employer] of 08:21:00 [facility] COMP. METABOLIC PANEL ([id number]) 2020-02-02 [facility] iversity of 08:21:00 [facility] LITHIUM 2020-02-02 Lisandro [facility] of 08:21:00 [facility] CBC WITH DIFF 2020-02-02 Micaela [facility] of 08:21:00 [facility] GLYCOSYLATED HEMOGLOBIN (A1C) 2020-02-02 Alex Mcknight iversity of 08:21:00 [facility] ACUTE CARE VENOUS BLOOD GAS 2020-02-01 Liliya Hinojosa [facility] ersity of 19:23:00 [facility] US ABDOMEN COMPLETE 2020-02-01 [facility] o f 16:39:39 [facility] POCT GLUCOSE (AUTOMATED) 2020-02-01 [facility] 12:46:00 [facility] LIPASE 2020-02-01 [facility] of 10:09:00 [facility] COMP. METABOLIC PANEL ([id number]) 2020-02-01 [facility] iversity of 10:09:00 [facility] LITHIUM 2020-02-01 [facility] of 10:09:00 [facility] CBC WITH DIFF 2020-02-01 Micaela [facility] of 10:09:00 [facility] OSMOLALITY SERUM 2020-02-01 [facility] 00:10[facility]00 [facility] VITAMIN B12, LEVEL 2020-02-01 Micaela [facility] of 00:10:00 [facility] FOLATE 2020-02-01 [facility] 00:10:00 [facility] ABG+COOX+NA+K+GLU+CA2+ 2020-01-31 Kirstin Ron [facility] ty of 20:39:00 [facility] BLOOD CULTURE SCREEN 2020-01-31 Ron, [facility] of 18:21:00 [facility] IRON PANEL 2020-01-31 Micaela [facility] of 18:21:00 [facility] SALICYLATE 2020-01-31 Asaf [facility] of 18:21:00 [facility] LITHIUM 2020-01-31 Asaf [facility] of 18:21:00 [facility] VALPROIC ACID, TOTAL 2020-01-31 Asaf [facility] of 18:21:00 [facility] BLOOD CULTURE WORKUP 2020-01-31 Asaf, [facility] of 18:21:00 [facility] ADC OR PERICO ONLY - RPR 2020-01-31 Liliya [facility]ino[facility]osa [facility]ity of 18:21:00 [facility] GRAM POSITIVE BLOOD PATHOGENS DNA 2020-01-31 May Ron [facility] of PROBE-AEROBIC 18:21:00 [facility] XR ABDOMEN 1 VW 2020-01-31 Ron, [facility] of 17:09:26 [facility] XR CHEST 1 VW 2020-01-31 Asaf [facility] of 17:09:26 [facility] CT HEAD WO CONTRAST 2020-01-31 [facility] of 16:58:10 [facility] URINALYSIS 2020-01-31 [facility] of 16:13:00 [facility] URINE CULTURE 2020-01-31 [facility] 16:13:00 [facility] ADC / LCC - DRUG SCREEN TRIAGE 2020-01-31 [facility] 16:13:00 [facility] COVID-19 (ID NOW RAPID TESTING) 2020-01-31 [facility] of 16:00:00 [facility] LAB ONLY COVID INTERPRETATION 2020-01-31 [facility] niversity of 16:00:00 [facility] BLOOD CULTURE SCREEN 2020-01-31 [facility] of 15:58:00 [facility] CREATINE KINASE 2020-01-31 [facility] of 15:58:00 [facility] LIPASE 2020-01-31 [facility] of 15:58:00 [facility] FERRITIN SERUM 2020-01-[facility] of 15:58:00 [facility] AMMONIA, PLASMA 2020-01-31 [facility] of 15:58:00 [facility] TROPONIN I 2020-01-31 [facility] of 15:58:00 [facility] THYROID STIMULATING HORMONE 2020-01-31 Lisandro [facility] ersity of 15:58:00 [facility] HEPATIC FUNCTION PANEL ([id number]) 2020-01-31 [facility] of (ALB,T.PRO,BILI 15:58:00 [facility] T,BU/BC,ALT,AST,[facility] BASIC METABOLIC PANEL (NA, K, CL, 2020-01-31 RonMay [facility] of CO2, GLUCOSE, BUN, CREATININE, CA) 15:58:00 [facility] ETHANOL 2020-01-31 [facility] [facility] of 15:58:00 [facility] DIFF CONSULT INTERPRETATION 2020-01-31 [facility] ersity of 15:58:00 [facility] CBC WITH DIFF 2020-01-31 [facility] of 15:58:00 [facility] RETICULOCYTES AUTOMATED 2020-01-31 [facility] ty of 15:58:00 [facility] N-TERMINAL PRO-BNP 2020-01-31 [facility] o f 15:58:00 [facility] LACTIC ACID WHOLE BLOOD 2020-01-31 [facility] ity of 15:57:00 [facility] EKG-12 LEAD 2020-01-31 Mariana Ramirez [facility] of 15:48:34 [facility] EKG-12 LEAD 2020-01-31 [facility] of 15:40:40 [facility] NOTICE OF PRIVACY PRACTICES 2020-01-31 Doctor Unassigned, U niversity of 15:38:09 Risco [facility] CONSENT/REFUSAL FOR DIAGNOSIS AND 2020-01-31 Doctor Padmasspramod santiago, [facility] 15:37:54 Risco [facility] EXTERNAL PROVIDER RECORDS 2020-01-31 Doctor Unassigned, Uni versity of 05:01:00 Risco [facility] EMERGENCY DEPARTMENT DOCUMENTS 2020-01-31 Doctor Iker , [facility] of 05:01:00 Risco [facility] ADM - MISC 2020-01-31 Doctor Unassigned, Universit y of 05:01:00 Risco [facility] ADMISSION 2020-01-31 Doctor Unaantonio, [facility] of 05:01:00 Risco [facility] CT ABDOMEN PELVIS W CONTRAST 2019-12-18 Meka Hammonds Un iversity of 22:11:19 [facility] URINALYSIS 2019-12-18 Meka Hammonds [employer] of 21:07:00 [facility] LIPASE 2019-12-18 Meka Hammonds [employer] of 20:39:00 [facility] TROPONIN I 2019-12-18 [facility] 20:39:00 [facility] HEPATIC FUNCTION PANEL ([id number]) 2019-12-18 [facility] (ALB,T.PRO,BILI 20:39:00 [facility],BU/BC,ALT,AST,ALK PHOS) [place] BASIC METABOLIC PANEL (NA, K, CL, 2019-12-18 [facility] CO2, GLUCOSE, BUN, CREATININE, CA) 20:39:00 [facility] CBC WITH DIFF 2019-12-18 [facility] 20:39:00 [facility] CONSENT/REFUSAL FOR DIAGNOSIS AND 2019-12-18 [facility] 20:15:38 Risco [facility] XR CHEST 1 VW COVID 2019-08-22 EsthernvErasmo [facility] 01:15:45 [facility] LIPASE 2019-08-22 [facility] 01:00:00 [facility] TROPONIN I 2019-08-22 [facility] 01:00:00 [facility] COMP. METABOLIC PANEL ([id number]) 2019-08-22 LeahazErasmo U niversity of 01:00:00 [facility] CBC WITH DIFFERENTIAL 2019-08-22 [facility]Erasmo [facility] 01:00:00 [facility] PROTHROMBIN TIME / INR 2019-08-22 [facility] ty of 01:00:00 [facility] ACTIVATED PARTIAL THRMPLAS KIMANI 2019-08-22 Erasmo [facility] 01:00:00 [facility] URINALYSIS 2019-08-22 [facility] 01:00:00 [facility] CORONAVIRUS COVID-19 TESTING 2019-08-22 [facility]anner Un iversity of 01:00:00 [facility] EKG-12 LEAD 2019-08-22 [facility] 00:52:01 [facility] CONSENT/REFUSAL FOR DIAGNOSIS AND 2019-08-22 Doctor [facility]ung [facility] 00:30:30 Risco [facility] LIPASE 2019-06-25 Asaf Kirstin [facility] 22:49:00 [facility] TROPONIN I 2019-06-25 [facility] of 22:49:00 [facility] HEPATIC FUNCTION PANEL ([id number]) 2019-06-25 [facility] of (ALB,T.PRO,BILI 22:49:00 [facility] T,BU/BC,ALT,AST,ALK PHOS) [place] BASIC METABOLIC PANEL (NA, K, CL, 2019-06-25 [facility] of CO2, GLUCOSE, BUN, CREATININE, CA) 22:49:00 [facility] CBC WITH DIFFERENTIAL 2019-06-25 [facility] y of 22:49:00 [facility] EKG-12 LEAD 2019-06-25 [facility] of 22:33:31 [facility] URINALYSIS 2019-06-25 [place], [facility] of 22:13:00 [facility] LIPASE 2019-06-19 [facility] of 20:30:00 [facility] TEST, SERUM 2019-06-19 [facility] ty of 20:30:00 [facility] HEPATIC FUNCTION PANEL ([id number]) 2019-06-19 [facility] of (ALB,T.PRO,BILI 20:30:00 [facility] T,BU/BC,ALT,AST,ALK PHOS) [place] BASIC METABOLIC PANEL (NA, K, CL, 2019-06-19 [facility] of CO2, GLUCOSE, BUN, CREATININE, CA) 20:30:00 [facility] CBC WITH DIFFERENTIAL 2019-06-19 [facility] ty of 20:30:00 [facility] URINALYSIS 2019-06-19 [facility] of 20:30:00 [facility] CONSENT/REFUSAL FOR DIAGNOSIS AND 2019-06-19 Doctor Dung santiago, [facility] 19:35:06 Risco [facility] CT ABDOMEN PELVIS W CONTRAST 2019-05-20 Gary Skaggs versity of 02:03:54 [facility] LIPASE 2019-05-20 Singer [facility] of 01:07:00 [facility] COMP. METABOLIC PANEL (07266) 2019-05-20 Gary Skaggs iversity of 01:07:00 [facility] CBC WITH DIFFERENTIAL 2019-05-20 [facility] 01:07:00 [facility] URINALYSIS 2019-05-20 [facility] of 01:07:00 [facility] NOTICE OF PRIVACY PRACTICES 2019-05-20 Doctor Unasschad, U niversity of 00:08:29 Risco [facility] CONSENT/REFUSAL FOR DIAGNOSIS AND 2019-05-20 Doctor Dung santiago, [facility] 00:08:14 Risco [facility] CT ANKLE RIGHT WO CONTRAST 2018-12-05 Ector Frank [facility] rsity of 16:22:01 [facility] XR FOOT 3+ VW RIGHT 2018-12-01 [facility] o f 19:59:31 [facility] XR TIBIA FIBULA 2 VW RIGHT 2018-12-01 [facility] rsity of 19:59:07 [facility] BASIC METABOLIC PANEL (NA, K, CL, 2018-11-16 [facility] of CO2, GLUCOSE, BUN, CREATININE, CA) 09:31:00 [facility] CBC WITH DIFFERENTIAL 2018-11-16 [facility] of 09:31:00 [facility] ABORH CONFIRMATION 2018-11-16 [facility] of 00:34:00 [facility] URINE CULTURE 2018-11-16 [facility] of 00:00:00 [facility] URINALYSIS 2018-11-15 [facility] of 23:58:00 [facility] TYPE AND SCREEN 2018-11-15 [facility] of 23:00:00 [facility] TROPONIN I 2018-11-15 [facility] of 21:08:00 [facility] LIPID PANEL (00201)(TOTAL 2018-11-15 [facility] sity of CHOLESTEROL, TRIGLYCERIDES, HDL) 21:08:00 [facility] CT ABDOMEN PELVIS W CONTRAST 2018-11-15 Mariana Ramirez Uni versity of 16:32:45 [facility] HELICOBACTER PYLORI AB, IGG 2018-11-15 [facility] ersity of 15:51:00 [facility] HEPATITIS B SURFACE ANTIBODY 2018-11-15 Mariana Ramirez Uni versity of 15:51:00 [facility] HCV ANTIBODY 2018-11-15 Mariana Ramirez of 15:51:00 [facility] HEPATITIS A VIRUS ANTIBODY IGM 2018-11-15 Mariana Ramirez niversity of 15:51:00 [facility] HEPATITIS B CORE ANTIBODY IGM 2018-11-15 Mariana Ramirez iversity of 15:51:00 [facility] ACETAMINOPHEN 2018-11-15 Mariana Ramirez of 15:50:00 [facility] XR CHEST 1 VW 2018-11-15 Mariana Ramirez of 15:08:18 [facility] LIPASE 2018-11-15 Mariana Ramirez of 14:40:00 [facility] TROPONIN I 2018-11-15 Mariana Ramirez of 14:40:00 [facility] HEPATIC FUNCTION PANEL (42884) 2018-11-15 Mariana Ramirez niversity of (ALB,T.PRO,BILI 14:40:00 [facility],BU/BC,ALT,AST,ALK PHOS) [place] BASIC METABOLIC PANEL (NA, K, CL, 2018-11-15 Florina Ramirez [employer] of CO2, GLUCOSE, BUN, CREATININE, CA) 14:40:00 [facility] CBC WITH DIFFERENTIAL 2018-11-15 Mariana Ramirez of 14:40:00 [facility] GLYCOSYLATED HEMOGLOBIN (A1C) 2018-11-15 Maryellen Cummings Un iversity of 14:40:00 [facility] PROTHROMBIN TIME / INR 2018-11-15 Mariana Ramirezit y of 14:40:00 [facility] ACTIVATED PARTIAL THRMPLAS KIMANI 2018-11-15 Mariana Ramirez niversity of 14:40:00 [facility] N-TERMINAL PRO-BNP 2018-11-15 Mariana Ramirez of 14:40:00 [facility] EKG-12 LEAD 2018-11-15 Mariana Ramirez of 14:26:03 [facility] CONSENT/REFUSAL FOR DIAGNOSIS AND 2018-11-15 Doctor Dung santiago [facility] 14:13:05 Risco [facility] Plan of Care Planned Activity Planned Date Details Comments Source Future Scheduled 2023-09-01 Screening for malignant [facility] Test 00:00:00 neoplasm of colon Medical Ce nter (procedure) [code = 076134114] Future Scheduled 2023-09-01 Screening for malignant [facility] Test 00:00:00 neoplasm of colon Medical Ce nter (procedure) [code = 217162552] Future Scheduled 2023-09-01 Screening for malignant [facility] Test 00:00:00 neoplasm of colon Medical Ce nter (procedure) [code = 157735640] Future Scheduled 2023-09-01 Screening for malignant [facility] Test 00:00:00 neoplasm of colon Medical Ce nter (procedure) [code = 073329761] Future Scheduled 2023-09-01 Screening for malignant [facility] Test 00:00:00 neoplasm of colon Medical Ce nter (procedure) [code = 584349358] Future Scheduled 2023-09-01 Screening for malignant [facility] Test 00:00:00 neoplasm of colon Medical Ce nter (procedure) [code = 482765530] Future Scheduled 2023-02-01 Lipid panel (procedure) [facility] Test 00:00:00 [code = 22679789] Medical Ce nter Future Scheduled 2023-02-01 Lipid panel (procedure) [facility] 00:00:00 [code = 72256877] Medical Ce nter Future Scheduled 2023-02-01 Lipid panel (procedure) [facility] 00:00:00 [code = 27134287] Medical Ce nter Future Scheduled 2021-12-14 INFLUENZA [...] cervix Medical C enter (procedure) [code = 259052641] Future Scheduled 1983-11-02 Screening for malignant [facility] Test 00:00:00 neoplasm of cervix Medical C enter (procedure) [code = 872194648] Future Scheduled 1983-11-02 Screening for malignant [facility] Test 00:00:00 neoplasm of cervix Medical C enter (procedure) [code = 060013924] Future Scheduled 1981 DTAP/TDAP/TD VACCINES CH I [...] breast Medical C enter (procedure) [code = 061160072] Future Scheduled 1962 CT Colonography (combo) [facility] Test 00:00:00 [code = CT Colonography [facility] (combo)] Future Scheduled 1962 Screening for malignant [facility] Test 00:00:00 neoplasm of colon Medical Ce nter (procedure) [code = 763974672] Future Scheduled 1962 Screening for malignant [facility] Test 00:00:00 neoplasm of colon Medical Ce nter (procedure) [code = 382588766] Future Scheduled 1962 Sigmoidoscopy [code = [facility]] Medical Cente r Future Scheduled 1962 Screening for malignant [facility] Test 00:00:00 neoplasm of breast Medical C enter (procedure) [code = 427253998] Future Scheduled 1962 CT Colonography (combo) [facility] Test 00:00:00 [code = CT Colonography [facility] (combo)] Future Scheduled 1962 Screening for malignant [facility] Test 00:00:00 neoplasm of colon Medical Ce nter (procedure) [code = 257676159] Future Scheduled 1962 Screening for malignant [facility] Test 00:00:00 neoplasm of colon Medical Ce nter (procedure) [code = 438548950] Future Scheduled 1962 Sigmoidoscopy [facility]code [facility]oscopy] Medical Cente r Future Scheduled 1962 Screening for malignant [facility] Test 00:00:00 neoplasm of breast Medical C enter (procedure) [code = 627418557] Future Scheduled 1962 CT Colonography (combo) [facility] Test 00:00:00 [code = CT Colonography [facility] (combo)] Future Scheduled 1962 Screening for malignant [facility] Test 00:00:00 neoplasm of colon Medical Ce nter (procedure) [code = 341914839] Future Scheduled 1962 Screening for malignant [facility] Test 00:00:00 neoplasm of colon Medical Ce nter (procedure) [code = 417785592] Future Scheduled 1962 Sigmoidoscopy [facility]code [facility] S[facility]oscopy] Medical Cente r Encounters Start End Encounter Admission Attending Care Care Encounter Source Date/Time Date/Time Type Type Clinicians Facility Department ID 2022-01-10 Outpatient Slade, Na STLMLC STLMLC [id number] 2 Common 11:30:01 [facility] 2021-12-29 Outpatient Slade, Na STLMLC STLMLC [id number] 2 Common 09:54:01 [facility] 2021-12-26 Outpatient Slade, Na STLMLC STLMLC [id number] 2 Common 08:22:00 [facility] 2021-12-22 Outpatient Slade, Na STLMLC STLMLC [id number] 2 Common 08:47:00 [facility] 2021-09-19 Outpatient Slade, Na STLMLC STLMLC [id number] 2 Common 13:44:00 [facility] 2021-08-16 Outpatient Slade, Na STLMLC STLMLC [id number] 2 Common 08:30:01 [facility] 2021-06-14 Outpatient Slade, Na STLMLC STLMLC [id number] 2 Common 10:15:02 [facility] 2021-05-25 Outpatient R ANANYA, [facility] JARROD [id number] Univers 16:04:35 GULSHAN [facility] 2021-05-10 Outpatient Slade, Na STLMLC STLMLC [id number] 2 Common 14:36:16 [facility] 2021-05-10 Outpatient Slade, Na STLMLC STLMLC [id number] 2 Common 14:35:31 [facility] 2021-05-10 Outpatient Slade, Na STLMLC STLMLC [id number] 2 Common 14:33:15 [facility] 2021-05-10 Outpatient Slade, Na STLMLC STLMLC [id number] 2 Common 14:26:40 [id number] [facility] 2021-05-10 Outpatient Slade, Na STLMLC STLMLC [id number] 2 Common 14:26:20 [id number] [facility] 2021-05-10 Outpatient Slade, Na STLMLC STLMLC [id number] 2 Common 13:09:45 [id number] [facility] 2021-05-10 Outpatient Slade, Na STLMLC STLMLC [id number] 2 Common 12:53:19 [id number] [facility] 2021-05-10 Outpatient Slade, Na STLMLC STLMLC [id number] 2 Common 12:44:09 [id number] [facility] 2021-05-10 Outpatient Slade, Na STLMLC STLMLC [id number] 2 Common 12:41:43 [id number] [facility] 2021-05-10 Outpatient Slade, Na STLMLC STLMLC [id number] 2 Common 12:14:04 [id number] [facility] 2021-05-10 Outpatient Slade, Na STLMLC STLMLC [id number] 2 Common 12:09:45 [id number] [facility] 2021-05-10 Outpatient Slade, Na STLMLC STLMLC [id number] 2 Common 12:08:20 [id number] [facility] 2021-05-10 Outpatient Slade, Na STLMLC STLMLC [id number] 2 Common 11:31:43 [id number] [facility] 2021-05-10 Outpatient Slade, Na STLMLC STLMLC [id number] 2 Common 11:27:56 [id number] [facility] 2021-05-10 Outpatient Slade, Na STLMLC STLMLC [id number] 2 Common 11:27:26 [id number] [facility] 2021-05-10 Outpatient Slade, Na STLMLC STLMLC [id number] 2 Common 11:16:24 [id number] [facility] 2021-04-12 Outpatient R KODI [facility] BRETT [id number] Univers 10:13:10 KENROY Stokes ity [facility] 2021-02-12 Outpatient R VERA [facility] JARROD [id number] Univers 02:51:20 MOISE ity [facility] 2021-02-11 Emergency [facility] [id number] Univers 18:57:51 ity [facility] 2021-02-11 Emergency [facility] [id number] Univers 10:52:36 ity [facility] 2021-02-10 Emergency [facility] [id number] Univers 23:34:27 ity [facility] 2021-02-10 Emergency [facility] [id number] Univers 16:03:46 ity of [facility] 2021-02-09 Emergency [facility] [id number] Univers 14:07:13 ity of [facility] 2021-02-09 Emergency [facility] [id number] Univers 13:02:51 ity [facility] 2021-01-21 Outpatient HEMALATHA [facility] [id number] [facility] 22:26:45 GOTTI 2021-01-21 Inpatient ER BRAULIO NGUYỄN [facility] Gastro [id number] [facility] 22:24:24 2021-01-21 Outpatient HEMALATHA [facility] Surgery [id number] [facility] 18:10:30 ANA MARÍA 2020-08-26 Inpatient ER BRAULIO NGUYỄN [facility] General Med 9 [id number] [facility] 02:30:00 2022-01-26 2022-01-26 [facility] [id number] Univers 15:28:00 19:45:00 MEKA li [facility] 2022-01-26 2022-01-26 [facility] [id number] Univers 15:28:00 19:45:00 Meka MARCUM [id number] ity [facility] [id number] [facility] [id number] [facility] 084 Branch 2022-01-10 2022-01-10 (TEL[id number] Co mmon 00:00:00 00:00:00 [facility] 2022-01-02 2022-01-02 Outpatient R FE [facility] [id number] Univers 10:00:00 10:00:00 VIRA [facility] 2022-01-02 2022-01-02 Orders Doctor JAQUELIN [id number] Univers 00:00:00 00:00:00 Only Unassigned, BIANCA [id number] [facility] [id number] Archie [id number] [facility] 009 Branch 2021-12-13 2021-12-13 (TEL) [facility] [id number] Co mmon 00:00:00 00:00:00 [facility] 2021-11-13 2021-11-13 [facility] [id number] Co mmon 00:00:00 00:00:00 [facility] 2021-11-02 2021-11-02 Emergency [facility] [id number] Univers 04:35:00 08:22:00 MARIANA [facility] 2021-11-02 2021-11-02 [facility] [id number] Univers 04:35:00 08:22:00 Mariana MARCUM [id number] i ty of [place] [id number] [id number] [facility] 084 Branch 2021-10-25 2021-10-25 Orders Doctor JAQUELIN [id number] Univers 00:00:00 00:00:00 Only Unassigned, BIANCA [id number] ity of [place] [facility] [id number] Archie as [id number] [facility] 009 Branch 2021-10-19 2021-10-19 (TEL) STLMLC STLMLC [id number] Co mmon 00:00:00 00:00:00 [facility] 2021-10-18 2021-10-18 (TEL) STLMLC STLMLC [id number] Co mmon 00:00:00 00:00:00 [facility] 2021-10-06 2021-10-06 (TEL) STLMLC STLMLC [id number] Co mmon 00:00:00 00:00:00 [facility] 2021-09-29 2021-09-29 Outpatient R JENNIFER DENNY, [facility] SOR [id number] Univers 06:25:00 10:55:00 ZULEMA li of [facility] 2021-09-29 2021-09-29 [facility] [id number] Univers 06:25:00 10:55:00 Encounter Zulema MARCUM [id number] ity of [place] [id number] [id number] [facility] 071 Branch 2021-09-29 2021-09-29 Surgery [facility] [id number] Univers 07:45:00 10:15:00 Zulema MARCUM [id number] ity of [id number] [id number] [facility] 020 Branch 2021-09-29 2021-09-29 Anesthesia Abe Arana [facility] [id number] Univers 07:57:00 09:44:00 Event JustusMargarito [id number] [facility]y [facility] [id number] [id number] [facility] 020 Branch 2021-09-29 2021-09-29 Orders Doctor JAQUELIN [id number] Univers 00:00:00 00:00:00 Only Unassigned, BIANCA [id number] ity of [place] [facility] [id number] Archie as [id number] [facility] 009 [place] 2021-09-27 2021-09-27 Laboratory Only, Adc Test [facility] 1.2.840. [id number] Univers 08:30:00 08:45:00 Only Zulema Rodriguez [id number] ity [id number] [id number] [facility] 353 [place] 2021-09-27 2021-09-27 Outpatient R JENNIFER DENNY, [facility] [id number] Univers 08:30:00 08:30:00 ZULEMA li [facility] 2021-09-27 2021-09-27 Safety Counselor Elizabeth, [facility] Lab Main [facility] [id number] Univers 08:15:00 08:30:00 Visit Zulema Rodriguez [id number] ity of [place] [id number] PROF[place] [id number] [facility] 2021-09-27 2021-09-27 Orders Doctor JAQUELIN [id number] Univers 00:00:00 00:00:00 Only Unassigned, BIACNA [id number] ity of [place] [facility] [id number] Archie as [id number] [facility] 009 [place] 2021-09-21 2021-09-21 [facility] [id number] Co mmon 00:00:00 00:00:00 VISIT Spirit ESTAB PT - CHI LEVEL 4 [facility] 2021-09-122021-09-12 Transition NHAN Abdi 1.2.840.114 [id number] Univers 00:00:00 00:00:00 of Care Cynacosta WILLS [id number] i ty of [place] 4.2.7.2.686 [facility] [id number] [facility] 403 Branch 2021-09-01 2021-09-08 Inpatient X ALISHA [facility] BRETT [id number] Univers 13:22:00 17:57:00 RAF li [facility] 2021-09-01 2021-09-08 [facility] Jaki Polanco 1.2.840.1 [id number] Univers 13:22:00 17:57:00 Encounter Raf Greene 350.1.1 3.10 ity of [facility] 4.2.7.2.686 [place] [id number] [facility] [address] 2021-09-08 2021-09-08 (TEL) STLC STLMLC [id number] Co mmon 00:00:00 00:00:00 [facility] 2021-08-27 2021-08-27 Emergency [facility] ERT [id number] Univers 10:45:00 15:33:00 MARU li [facility] 2021-08-27 2021-08-27 Emergency [facility] 1.2.840.114 [id number] Univers 10:45:00 15:33:00 Maru MARCUM 350.1.13.10 ity of [place] 4.2.7.2.686 [facility] [id number] [facility] [address] 2021-08-25 2021-08-25 (TEL) STLMLC STLMLC [id number] Co mmon 00:00:00 00:00:00 [facility] 2021-08-22 2021-08-22 (TEL) STLMLC STLMLC [id number] Co mmon 00:00:00 00:00:00 [facility] 2021-08-07 2021-08-07 OFFICE STLMLC STLMLC [id number] Co mmon 00:00:00 00:00:00 VISIT EST Spir it PT LEVEL 3 - [facility] 2021-08-01 2021-08-01 (TEL) STLMLC STLC [id number] Co mmon 00:00:00 00:00:00 Spirit - [facility] 2021-08-01 2021-08-01 Transition NHAN Hussein 1.2.840.114 [id number] Univers 00:00:00 00:00:00 of Care Lanny WILLS 350.1.13.10 it y of [place] [id number] [facility] [address] 2021-07-23 2021-07-29 Inpatient X AIDAN [facility] BRETT [id number] Univers 15:34:00 13:50:00 FRED ity of [facility] 2021-07-23 2021-07-29 [facility] Meka Hammonds [facility] 1.2.840. 114 [id number] Univers 15:34:00 13:50:00 Encounter Liliya Hinojosa 350.1.13.10 ity of [place] 4.2.7.2.686 [facility] [id number] [facility] [address] 2021-07-04 2021-07-04 [facility] J[facility]OD [id number] Univers 10:42:00 13:20:00 GULSHAN ity of [facility] 2021-07-04 2021-07-04 [facility] 1.2.932.968 [id number] Univers 10:42:00 13:20:00 Encounter Gulshan MARCUM 350.1.13.10 ity of [place] [id number] [facility] [address] 2021-07-04 2021-07-04 Surgery [facility] 1.2.840.114 [id number] Univers 12:00:00 12:39:00 Gulshan MARCUM 350.1.13.10 i ty of [place] [id number] [facility] [address] 2021-07-04 2021-07-04 Orders Doctor JAQUELIN 1.2.840.114 [id number] Univers 00:00:00 00:00:00 Only Unassigned, BIANCA 350.1.13.10 ity [facility] 4.2.7.2.686 [place] as [id number] [facility] [address] 2021-06-15 2021-06-15 OFFICE STLC STLC [id number] Co mmon 00:00:00 00:00:[address] [facility] LEVEL 4 [facility] 2021-06-12 2021-06-12 (TEL) STLMLC STLMLC [id number] Co mmon 00:00:00 00:00:00 [facility] 2021-06-05 2021-06-05 Outpatient Colette PIPER [facility] [id number] Univers 10:30:00 10:30:00 GULSHAN [facility] 2021-06-03 2021-06-03 Emergency [facility] ERT [id number] Univers 14:00:00 22:08:00 MARIANA [facility] 2021-06-03 2021-06-03 Emergency [facility] 1.2.207.862 [id number] Univers 14:00:00 22:08:00 Mariana MARCUM 350.1.13.10 i ty of [facility] 4.2.7.2.686 [facility] [id number] [facility] [address] [place] 2021-06-01 2021-06-01 (TEL) [facility] [id number] Co mmon 00:00:00 00:00:00 [facility] 2021-05-21 2021-05-22 Emergency X JAROCHO [facility] ERT [id number] Univers 23:29:00 01:11:00 CONSUELO [facility] 2021-05-21 2021-05-22 Emergency [facility] 1.2.840.114 [id number] Univers 23:29:00 01:11:00 Consuelo MARCUM 350.1.13.10 i ty of [place] 4.2.7.2.686 [facility] [id number] [facility] [address] 2021-05-19 2021-05-19 Letter JAQUELIN Mendoza 1.2.840.114 [id number] Univers 00:00:00 00:00:00 (Out) Kelsy Lemon BIANCA 350.1.13.10 it y of [facility] 4.2.7.2.686 Ar[place] as [id number] [facility] 0[address] 2021-05-19 2021-05-19 Telephone Nurse, Phillip [facility] 1.2.840.114 [id number] Univers 00:00:00 00:00:00 Db Urgent HEALTH 350.1.13.10 ity of [facility] 4.2.7.2.686 Archie as BALAJI?BLEA [id number] [address] MEDICAL OFFICE [facility] 2021-05-18 2021-05-18 Outpatient R JAROCHO [facility] [id number] Univers 09:00:00 09:41:26 RANIA ity [facility] 2021-05-18 2021-05-18 Urgent [facility] 1.2.840.114 [id number] Univers 09:00:00 09:20:00 Care [place], Korina HEALTH 350.1.13.10 ity of [place] 4.2.7.2.686 Archie as BALAJI?BLEA [id number] [address] MEDICAL OFFICE BUILDING 2021-05-18 2021-05-18 Letter Doctor HAMMER 1.2.840.114 [id number] Univers 00:00:00 00:00:00 (Out) UnassBIANCA bonilla 350.1.13.10 ity of [facility] 4.2.7.2.686 Archie as [id number] [facility] [address] 2021-05-15 2021-05-15 (TEL) [facility] ST[facility] [id number] Co mmon 00:00:00 00:00:00 [facility] 2021-05-09 2021-05-09 (TEL) STLMLC STLMLC [id number] Co mmon 00:00:00 00:00:00 [facility] 2021-04-19 2021-04-19 (TEL) STLMLC STLMLC [id number] Co mmon 00:00:00 00:00:00 [facility] 2021-04-18 2021-04-18 Outpatient R KODI [facility] [id number] Univers 10:15:00 10:15:00 KENROY Stokes jessicay o f [facility] 2021-04-15 2021-04-15 Emergency Ebflfalguni, [facility] 1.2.840.114 [id number] Univers 13:41:00 15:39:00 Consuelo [facility] 350.1.13.10 i ty [facility] 4.2.7.2.686 [place] [facility] [id number] [place] 638884 [place] 2021-04-15 2021-04-15 Nurse Nurse, Phillip [facility] 1.2.840.114 [id number] Univers 13:20:00 13:40:00 [facility] 350.1.13.10 ity [facility] 4.2.7.2.686 [place] as BALAJI?BLEA [id number] Ut dic[address] MEDICAL OFFICE BUILDING 2021-04-15 2021-04-15 Out[facility] [id number] Univers 13:20:00 13:37:39 KORINA [facility] 2021-04-15 2021-04-15 Outpatient R [facility] ERT [id number] Univers 13:20:00 13:37:39 KORINA [facility] 2021-04-03 2021-04-03 OFFICE STLC [facility] [id number] Co mmon 00:00:00 00:00:00 VISIT EST Spir it PT LEVEL 3 - [facility] 2021-03-31 2021-03-31 (TEL) STLMLC STLMLC [id number] Co mmon 00:00:00 00:00:00 [facility] 2021-03-25 2021-03-25 Emergency X JAROCHO, [facility] ERT [id number] Univers 18:03:00 21:41:00 RANIA ity [facility] 2021-03-25 2021-03-25 Emergency Ebrahifalguni, [facility] 1.2.840.114 [id number] Univers 18:03:00 21:41:00 Consuelo MARCUM 350.1.13.10 i ty of [facility] 4.2.7.2.686 [facility] [id number] [address] 2021-03-25 2021-03-25 Outpatient R [facility] [id number] Univers 11:40:00 11:23:42 TOSHA [facility] 2021-03-25 2021-03-25 Imm/Inj Vaccine, Ang Db [facility] 1.2.840 .114 [id number] Univers 11:00:13 11:10:13 Visit Hakeem [facility] 350.1.13.10 ity of [facility] 4.2.7.2.686 Archie as BALAJI?BLEA [id number] [address] MEDICAL OFFICE BUILDING 2021-03-21 2021-03-21 (TEL) [facility] [id number] Co mmon 00:00:00 00:00:00 Spirit - [facility] 2021-03-20 2021-03-20 Emergency X [facility] ERT [id number] Univers 16:03:00 19:39:00 [facility] 2021-03-20 2021-03-20 Emergency [facility] 1.2.431.732 [id number] Univers 16:03:00 19:39:00 Meka MARCUM 350.1.13.10 ity of [facility] 4.2.7.2.686 [facility] [id number] [address] 2021-02-12 2021-02-12 Emergency X [facility] ERT [id number] Univers 14:09:00 21:08:00 ROSALINDA li [facility] 2021-02-12 2021-02-12 Emergency [facility] 1.2.799.816 [id number] Univers 14:09:00 21:08:00 Rosalinda MARCUM 350.1.13.10 ity of [facility] 4.2.7.2.686 [facility] [id number] [address] 2021-01-17 2021-01-18 Emergency [facility] 1.2.840.114 [id number] Univers 21:29:00 01:13:00 Maru Marcum 350.1.13.10 ity of [place] 4.2.7.2.686 [place] [facility] [id number] [address] 2021-01-17 2021-01-18 Emergency X [facility] ERT [id number] Univers 21:29:00 01:13:00 MARU ity [facility] 2021-01-17 2021-01-17 Orders Doctor JAQUELIN 1.2.840.114 [id number] Univers 00:00:00 00:00:00 Only Unassigned, BIANCA 350.1.13.10 ity of [place] [facility] 4.2.7.2.686 Archie as [id number] [address] 2021-01-07 2021-01-07 [facility] 1.2.211.388 [id number] Univers 11:38:27 23:59:00 Encounter [facility] 350.1.13.10 ity of [place] 4.2.7.2.686 Archie as Balaji?Blea [id number] [facility] [address] [place] Medical Office [facility] 2021-01-07 2021-01-07 Outpatient R [facility] [id number] Univers 11:40:00 11:55:26 [facility] 2021-01-07 2021-01-07 Urgent flLeo montes de [facility]St[facility] 1.2.840.114 [id number] Univers 11:22:24 11:55:26 Care [place] [facility] 350.1.13.10 ity of [place] 4.2.7.2.686 Archie as Balaji?Blea [id number] [facility] [address] [place] Medical [address] Building 2021-01-07 2021-01-07 Letter JAQUELIN [place] 1.2.840.114 [id number] Univers 00:00:00 00:00:00 (Out) Karlene VÁZQUEZ 350.1.13.10 i ty of [facility] 4.2.7.2.686 Archie as [id number] [facility] [address] [place] 2020-12-30 2020-12-30 Emergency X [facility] ERT [id number] Univers 13:14:00 17:53:00 MARU li [facility] 2020-12-30 2020-12-30 Emergency [facility] 1.2.840.114 [id number] Univers 13:14:00 17:53:00 Maru Marcum 350.1.13.10 ity of [place] 4.2.7.2.686 [place] [id number] [facility] [address] [place] 2020-12-30 2020-12-30 Office [facility] 1.2.840.114 [id number] Univers 10:00:12 10:49:11 Visit Vira [place]ston 350.1.13.10 ity of [place] 4.2.7.2.686 [place] Profess[place] [id number] Ut dical [address] 2020-12-30 2020-12-[address] [facility] [id number] Univers 09:30:00 10:49:11 VIRA ity [facility] 2020-12-23 2020-12-23 [facility] 1.2.840.114 [id number] Univers 15:59:00 23:59:00 Encounter Virachantel Richardston 350.1.13.10 ity of [place] 4.2.7.2.686 [facility] [place] [id number] [facility] [address] [place] 2020-12-23 2020-12-23 [facility] 1.2.840.114 [id number] Univers 15:59:00 23:59:00 Encounter Vira Obdulia [place] 350.1.13.10 ity of [place] 4.2.7.2.686 [place] [id number] [facility] [address] [place] 2020-12-23 2020-12-[address] [facility] [id number] Univers 00:00:00 00:00:00 VIRACHANTEL li [facility] 2020-12-16 2020-12-16 [facility] 1.2.840.114 [id number] Univers 09:56:42 11:11:19 Visit Vira Marcum 350.1.13.10 ity of [place] 4.2.7.2.686 [place] [id number] Ut dical [facility] 2020-12-16 2020-12-16 Office [facility] 1.2.840.114 [id number] Univers 09:56:42 11:11:19 Visit Vira Marcum 350.1.13.10 ity of [place] 4.2.7.2.686 [place] Profess[place] [id number] Ut dical [address] 2020-12-16 2020-12-[address] [facility] [id number] Univers 10:00:00 10:00:00 [facility] 2020-12-14 2020-12-14 (TEL) [facility] [id number] Co mmon 00:00:00 00:00:00 [facility] 2020-12-05 2020-12-05 Emergency [facility] 1.2.840.114 [id number] Univers 14:07:00 18:52:00 Alirio Jodie Chao 350.1.13.10 ity of [place] 4.2.7.2.686 [place] [id number] [address] 2020-12-05 2020-12-05 Emergency X [facility] ERT [id number] Univers 14:07:00 18:52:00 HEATHERCESARO [facility] 2020-11-10 2020-11-10 Outpatient STLC STLC [id number] Common 00:00:00 00:00:00 [facility] 2020-10-11 2020-10-12 Emergency Mariana Ramirez 1.2.840. 114 [id number] 08:30:00 20:40:00 Kadi Duggan 350.1.13.10 [facility] 4.2.7.2.686 [id number] 09 2020-10-11 2020-10-12 Emergency Mariana Ramirez 1.2.840. 114 [id number] Univers 08:30:00 20:40:00 Kadi Duggan Bianca 350.1.13.10 ity [facility] 4.2.7.2.686 [place] [id number] [place] [address] [address] 2020-10-11 2020-10-12 Outpatient U [facility] [id number] Univers 08:30:00 20:40:00 URIEL [facility] 2020-10-04 2020-10-04 Emergency [facility] 1.2.223.090 [id number] 17:45:00 20:23:00 Maisha Marcum 350.1.13.10 [place] 4.2.7.2.686 [place] [id number] 08 2020-10-04 2020-10-04 Emergency [facility] 1.2.477.850 [id number] Univers 17:45:00 20:23:00 Maisha Marcum 350.1.13.10 i ty of [place] 4.2.7.2.686 [facility] [id number] [place] 638[place] 2020-10-04 2020-10-04 Emergency X [facility] ERT [id number] Univers 17:45:00 20:23:00 MAISHA [facility] 2020-09-30 2020-09-30 Outpatient STLMLC STLMLC [id number] Common 00:00:00 00:00:00 [facility] 2020-09-29 2020-09-29 Outpatient STLMLC STLMLC [id number] Common 00:00:00 00:00:00 [facility] 2020-09-19 2020-09-19 Outpatient STLMLC STLMLC [id number] Common 00:00:00 00:00:00 [facility] 2020-09-16 2020-09-16 Outpatient STLMLC STLMLC [id number] Common 00:00:00 00:00:00 [facility] 2020-09-02 2020-09-02 Outpatient STLMLC STLMLC [id number] Common 00:00:00 00:00:00 [facility] 2020-08-05 2020-08-05 Emergency [facility] 1.2.840.114 [id number] 08:16:00 09:12:00 Maru Christopher Marcum 350.1.13.10 [place] 4.2.7.2.686 [place] [id number] [facility] 2020-08-05 2020-08-05 Emergency [facility] 1.2.840.114 [id number] Univers 08:16:00 09:12:00 Maru Marcum 350.1.13.10 ity of [place] 4.2.7.2.686 [place] [id number] [address] 2020-08-05 2020-08-05 Emergency X [facility] ERT [id number] Univers 08:16:00 09:12:00 MARU li [facility] 2020-07-19 2020-07-19 Outpatient Colette [facility] [id number] Univers 11:20:00 11:11:33 SULAIMAN li [facility] 2020-07-18 2020-07-18 [facility] 1.2.840.114 [id number] 06:28:00 08:29:00 Encounter Moise [place]ston 350.1.13.10 [place] 4.2.7.2.686 Surgical [id number] [place] [address] 2020-07-18 2020-07-18 [facility] 1.2.840.114 [id number] Univers 06:28:00 08:29:00 Encounter Moise Maxine [place] 350.1.13.10 ity of [place] 4.2.7.2.686 [place] Surgical [id number] [facility] [address] 2020-07-18 2020-07-18 Surgery [facility] 1.2.840.114 [id number] 07:30:00 08:00:00 [place] 350.1.13.10 [place] 4.2.7.2.686 Surgical [id number] [place] [address] 2020-07-18 2020-07-18 Surgery [facility] 1.2.098.540 [id number] Univers 07:30:00 08:00:00 Moise Marcum 350.1.13.10 ity [facility] 4.2.7.2.686 [place] Surgical [id number] [facility] [address] 2020-07-15 2020-07-15 Outpatient Colette [facility] [id number] Univers 08:00:00 08:00:00 MOISE [facility] 2020-07-11 2020-07-11 Outpatient Colette [facility] [id number] Univers 12:00:00 12:00:00 SULAIMAN [facility] 2020-07-08 2020-07-08 Outpatient Colette [facility] [id number] Univers 10:40:00 10:40:00 [facility] 2020-07-07 2020-07-07 Emergency Collin, [facility] 1.2.840.114 [id number] 18:47:00 22:05:00 Sydnie Marcum 350.1.13.10 [place] 4.2.7.2.686 [place] [id number] [facility] 2020-07-07 2020-07-07 Emergency Collin Jaki [facility] 1.2.840.114 [id number] Univers 18:47:00 22:05:00 Sydnie Marcum 350.1.13.10 i ty of [place] 4.2.7.2.686 [facility] [id number] [address] 2020-07-07 2020-07-07 Emergency X COLLIN, K [facility] ERT [id number] Univers 18:47:00 22:05:00 [facility] 2020-07-07 2020-07-07 Outpatient STLMLC STLMLC [id number] Common 00:00:00 00:00:00 [facility] 2020-07-07 2020-07-07 Orders Doctor HAMMER 1.2.840.114 [id number] 00:00:00 00:00:00 Only Unassigned, BIANCA 350.1.13.10 [place] [facility] 4.2.7.2.686 [id number] 009 2020-07-07 2020-07-07 Orders Doctor JAQUELIN 1.2.840.114 [id number] Univers 00:00:00 00:00:00 Only Unassigned, BIANCA 350.1.13.10 ity of [place] [facility] 4.2.7.2.686 Archie as [id number] [address] 2020-07-04 2020-07-04 [facility] 1.2.840.114 [id number] 06:30:00 08:44:00 Encounter Moise Maxine Chao 350.1.13.10 [place] 4.2.7.2.686 Surgical [id number] [place] [address] 2020-07-04 2020-07-04 [facility] 1.2.840.114 [id number] [facility] 06:30:00 08:44:00 Encounter Moise Goodman Chao 350.1.13.10 ity of [place] 4.2.7.2.686 [place] Surgical [id number] [address] 2020-07-04 2020-07-04 Outpatient [facility] JARROD [id number] [facility] 06:30:00 08:44:00 MOISE ity of [facility] 2020-07-04 2020-07-04 Orders Doctor JAQUELIN 1.2.840.114 [id number] 00:00:00 00:00:00 Only Unassigned, BIANCA 350.1.13.10 [place] [facility] 4.2.7.2.686 [id number] 009 2020-07-04 2020-07-04 Orders Doctor JAQUELIN 1.2.840.114 [id number] Univers 00:00:00 00:00:00 Only Unassigned, BIANCA 350.1.13.10 ity of [place] [facility] 4.2.7.2.686 Archie as [id number] [address] 2020-07-01 2020-07-01 Laboratory Only, [facility] 1.2.840.114 [id number] 09:02:10 09:17:10 Only Test [place] 350.1.13.10 [place] 4.2.7.2.686 [place] [id number] 353 2020-07-01 2020-07-01 Laboratory Only, Adc Test [facility] 1.2.840. 114 [id number] Univers 09:02:10 09:17:10 Only Moise Gamez 350.1.13.1 0 ity of [place] 4.2.7.2.686 [place] [id number] [place] [address] [place] 2020-07-01 2020-07-01 [facility] [id number] Univers 08:30:00 08:30:00 MOISE itshey [facility] 2020-07-01 2020-07-01 Orders Doctor JAQUELIN 1.2.840.114 [id number] 00:00:00 00:00:00 Only Unassigned, BIANCA 350.1.13.10 [place] [facility] 4.2.7.2.686 [id number] 009 2020-07-01 2020-07-01 Orders Doctor JAQUELIN 1.2.840.114 [id number] Univers 00:00:00 00:00:00 Only Unassigned, BIANCA 350.1.13.10 ity of [place] [facility] 4.2.7.2.686 Archie [id number] [place] [address] [place] 2020-06-30 2020-06-30 Outpatient STLMLC STLMLC [id number] Common 00:00:00 00:00:00 [facility] 2020-06-22 2020-06-22 Outpatient STLMLC STLMLC [id number] Common 00:00:00 00:00:00 [facility] 2020-06-20 2020-06-20 [facility] 1.2.840.114 [id number] 06:29:00 08:58:00 Encounter Moise Marcum 350.1.13.10 [place] 4.2.7.2.686 Surgical [id number] [place] 07 2020-06-20 2020-06-20 [facility] 1.2.840.114 [id number] Univers 06:29:00 08:58:00 Encounter Moise Goodman [place] 350.1.13.10 ity of [place] 4.2.7.2.686 [place] [id number] [facility] [address] [place] 2020-06-20 2020-06-20 Outpatient VERA, [facility] JARROD [id number] Univers 06:29:00 08:58:00 MOISE ity of [facility] 2020-06-20 2020-06-20 Anesthesia [facility] 1.2.840.11 [id number] 08:03:00 08:12:00 Event Dominguez Seo 350.1.13.10 [place] 4.2.7.2.686 Surgical [id number] [place] [address] 2020-06-20 2020-06-20 Anesthesia Abe Arana [facility] 1.2.840.11 [id number] Univers 08:03:00 08:12:00 Event Dominguez Seo 350.1.13.10 ity of [place] 4.2.7.2.686 [place] [id number] [facility] [address] [place] 2020-06-20 2020-06-20 Orders Doctor JAQUELIN 1.2.840.114 [id number] 00:00:00 00:00:00 Only Unassigned, BIANCA 350.1.13.10 [place] [facility] 4.2.7.2.686 [id number] [facility] 2020-06-20 2020-06-20 Orders Doctor JAQUELIN 1.2.840.114 [id number] Univers 00:00:00 00:00:00 Only Unassigned, BIANCA 350.1.13.10 ity of [place] [facility] 4.2.7.2.686 Archie as [id number] [address] 2020-06-19 2020-06-19 Outpatient [facility] [id number] Univers 08:15:00 08:15:00 ity of [facility] 2020-06-17 2020-06-17 Safety Counselor Marcie Johnson [facility] 1.2.840.114 [id number] 15:27:53 15:42:53 Visit Lab Main [place] 350.1.13.10 [place] 4.2.7.2.686 Professio [id number] [address] 2020-06-17 2020-06-17 Safety Counselor Elizabeth, [facility] Lab Main [facility] 1.2.8 40.114 [id number] [facility] 15:27:53 15:42:53 Visit Moise Gamez 350.1.13.1 0 [place].2.[place] [facility] [phone] Ut dical [address] 2020-06-17 2020-06-17 Laboratory Only, [facility] 1.2.840.114 [id number] 15:26:19 15:41:19 Only Test [place] 350.1.13.10 [place] 4.2.7.2.686 [place] [id number] [facility] 2020-06-17 2020-06-17 Laboratory Only, [facility] Test [facility] 1.2.840. 114 [id number] [facility] 15:26:19 15:41:19 Only Moise Gamez 350.1.13.1 0 [place] 4[place].2.[place] [phone] [address] 2020-06-17 2020-06-17 Outpatient R VERA [facility] [id number] [facility] 12:30:00 12:30:00 MOISE ity [facility] 2020-06-17 2020-06-17 Orders Doctor HAMMER 1.2.840.114 [id number] 00:00:00 00:00:00 Only Unassigned, BIANCA 350.1.13.10 [facility] 4.2.7.2.686 [id number] [id number] 2020-06-17 2020-06-17 Orders Doctor JAQUELIN 1.2.840.114 [id number] [facility] 00:00:00 00:00:00 Only Unassigned, BIANCA 350.1.13.10 ity of [facility] 4.2.7.2.686 Archie as [phone] [address] 2020-05-22 2020-05-22 Outpatient R SALMA, [facility] [id number] Univers 08:50:00 08:50:00 SULAIMAN ity [facility] 2020-05-06 2020-05-06 Emergency Ron, [facility] 1.2.840.114 [id number] 15:21:00 18:38:00 Kirstin Marcum 350.1.13.10 [place] 4.2.7.2.686 [place] [id number] [facility] 2020-05-06 2020-05-06 Emergency Ron, [facility] 1.2.840.114 [id number] Univers 15:21:00 18:38:00 Kirstin Marcum 350.1.13.10 i [place].2.[place] [id number] [facility] [address] [place] 2020-05-04 2020-05-04 Outpatient R [facility] [id number] Univers 09:20:00 09:20:00 ity [facility] 2020-05-04 2020-05-04 Laboratory Lab, [facility] 1.2.840.114 [id number] 08:54:13 09:14:13 Only Fam Pob I Health 350.1.13.10 [place] 4.2.7.2.686 Professio [phone] [place] [address] [address] One 2020-05-04 2020-05-04 Laboratory Lab, [facility] Fam Pob I [facility] 1.2. 840.114 [id number] Univers 08:54:13 09:14:13 Only Anene, [facility] 350.1.13.10 ity of [place] 4.2.7.2.686 Archie as Professio [phone] Ut dical [address] Office Building One 2020-04-14 2020-04-14 Jeannie Elizabeth 1.2.840.114 [id number] 00:00:00 00:00:00 (Out) BIANCA 350.1.13.10 [facility] [id number] 043 2020-04-14 2020-04-14 Letter Jeannie Slade 1.2.840.114 [id number] [facility] 00:00:00 00:00:00 (Out) BIANCA 350.1.13.10 it y of HOSPITAL 4.2.7.2.686 Archie as [phone] [facility] [address] 2020-03-25 2020-03-26 Emergency [facility] 1.2.108.487 [id number] 21:13:00 02:01:00 Erasmo Marcum 350.1.13.10 [place] 4.2.7.2.686 [place] [phone] [facility] 2020-03-25 2020-03-26 Emergency [facility] 1.2.129.815 [id number] [facility] 21:13:00 02:01:00 Erasmo Marcum 350.1.13.10 it[place] [phone] [facility] [address] [place] 2020-03-18 2020-03-18 Orders Doctor JAQUELIN 1.2.840.114 [id number] 00:00:00 00:00:00 Only Unassigned, BIANCA 350.1.13.10 [place] [facility] 4.2.7.2.686 [phone] 009 2020-03-18 2020-03-18 Orders Doctor HAMMER 1.2.840.114 [id number] [facility] 00:00:00 00:00:00 Only Unassigned, BIANCA 350.1.13.10 ity of [place] [facility] 4.2.7.2.686 Archie as [phone] [place] [address] [address] 2020-03-08 2020-03-08 Outpatient [facility] [id number] Common 00:00:00 00:00:00 [facility] 2020-03-07 2020-03-07 [facility] [id number] Common 00:00:00 00:00:00 [facility] 2020-01-31 2020-02-08 [facility] Mariana Ramirez [facility] 1.2.840.1 [id number] 10:39:00 16:12:00 Encounter Kirstin Ron 350.1.13.10 Liliya Hinojosa 4.2.7.2.686 Katheryn Retana [place] [phone] [facility] 110 ([facility]) 2020-01-31 2020-02-08 [facility] Mariana Ramirez [facility] 1.2.840.1 [id number] [facility] 10:39:00 16:12:00 Encounter Kirstin Ron [facility] 350.1.13.10 ity of Liliya Hinojosa [place] 4.2.7.2.686 [facility] farooq [place] [phone] [facility] [address] ([facility]) 2020-01-11 2020-01-11 Outpatient [facility] [id number] Common 00:00:00 00:00:00 [facility] 2020-01-06 2020-01-06 Outpatient [facility] [id number] Common 00:00:00 00:00:00 [facility] 2019-12-18 2019-12-18 Emergency [facility] 1.2.743.162 [id number] 15:26:00 19:16:00 Meka Marcum 350.1.13.10 [place] 4.2.7.2.686 [place] [phone] [facility] 2019-12-18 2019-12-18 [facility] 1.2.457.797 [id number] [facility] 15:26:00 19:16:00 Meka Richardston 350.1.13.10 ity of [place] 4.2.7.2.686 [facility] [phone] [address] 2019-10-06 2019-10-06 Out[facility] [id number] Common 10:40:00 10:40:[address] Sp[address] [facility] 2019-09-17 2019-09-17 Out[facility] [id number] Common 10:24:00 10:24:[address] [facility] 2019-08-21 2019-08-21 Emergency [facility] 1.2.736.873 [id number] 19:42:19 23:51:00 Erasmo Richardston 350.1.13.10 [place] 4.2.7.2.686 [place] [id number] 2019-08-21 2019-08-21 Emergency X KENAN [facility] ERT [id number] Univers 19:42:19 23:51:00 ERASMO ity [facility] 2019-08-21 2019-08-21 Emergency Kenan [facility] 1.2.399.131 [id number] Univers 19:42:19 23:51:00 Erasmo Goodman Chao 350.1.13.10 ity of [place] 4.2.7.[address] [place] [phone] 2019-07-14 2019-07-14 Out[facility] [id number] Common 15:00:00 15:00:00 [employer] [facility] 77 Pieces [facility] 2019-06-25 2019-06-25 Emergency [facility] 1.2.840.114 [id number] 16:52:11 20:04:00 Kirstin Marcum 350.1.13.10 [place] 4.2.7.2.686 [place] [id number] [facility] 2019-06-25 2019-06-25 [facility] 1.2.840.114 [id number] Univers 16:52:11 20:04:00 Kirstin Marcum 350.1.13.10 i ty of [place] 4.2.7.2.[address] [place] [phone] 2019-06-19 2019-06-19 Emergency [facility] 1.2.274.669 [id number] 2000 13:58:11 19:09:00 Rosalinda Marcum 350.1.13.10 [place] [address] [place] [address] [phone] [facility] 2019-06-19 2019-06-19 Emergency [facility] 1.2.377.557 [id number] 2000 [facility] 13:58:11 19:09:00 Rosalinda Marcum 350.1.13.10 ity of [place] 4.2.7.2.[address] [place] [phone] 2019-06-19 2019-06-19 Orders Doctor JAQUELIN 1.2.840.114 [id number] 00:00:00 00:00:00 Only Unassigned, BIANCA 350.1.13.10 [place] [facility] 4.2.7.2.686 [id number] 009 2019-06-19 2019-06-19 Orders Doctor JAQUELIN 1.2.840.114 [id number] Univers 00:00:00 00:00:00 Only Unassigned, BIANCA 350.1.13.10 ity of [place] [facility] 4.2.7.2.686 Archie [id number] [facility] [address] 2019-05-19 2019-05-19 Emergency [facility] 1.2.567.733 [id number] 18:29:04 21:26:00 Gary Chao 350.1.13.10 [place] 4.2.7.2.686 [place] [phone] 084 2019-05-19 2019-05-19 Emergency X [facility] ERT [id number] Univers 18:29:04 21:26:00 GARY guillermo [facility] 2019-05-19 2019-05-19 Emergency [facility] 1.2.086.231 [id number] Univers 18:29:04 21:26:00 Gary Chao 350.1.13.10 i ty of [place] 4.2.7.2.686 [facility] [phone] [place] 638884 [place] 2019-03-02 2019-03-02 Outpatient [facility] [id number] Common 10:40:00 10:40:[address] [facility] 2019-02-04 2019-02-04 Outpatient [facility] [id number] Common 10:55:00 10:55:[address] [facility] 2018-12-24 2018-12-24 Telephone Christina [facility] 1.2.840.114 [id number] 00:00:00 00:00:00 [facility] 350.1.13.10 Surgical 4.2.7.2.686 Special [phone] hazel Marcum 2018-12-24 2018-12-24 [facility]phone [facility] 1.2.840.114 [id number] Univers 00:00:00 00:00:00 Milagros Chen 350.1.13.10 it y of Surgical 4.2.7.2.686 Archie as Specialti [phone] Ut dical es 198 [facility] 2018-12-18 2018-12-18 [facility] 1.2.840.114 [id number] Univers 08:54:57 23:59:00 Encounter Milagros Chen 350.1.13.10 ity of Surgical 4.2.7.2.686 Archie as Specialti [phone] Ut dical es 809 [facility] 2018-12-18 2018-12-18 Office [facility] 1.2.332.534 [id number] [facility] 08:37:16 09:02:40 Visit Milagros Chen 350.1.13.10 it y of Surgical 4.2.7.2.686 [place] as Specialti [id number] Ut dical es 198 [facility] 2018-12-08 2018-12-08 [facility] 1.2.193.288 [id number] Univers 15:02:42 15:51:02 Visit Milagros Chen 350.1.13.10 it y of Surgical 4.2.7.2.686 Ar[place] as Specialti [id number] Ut dical es 198 [facility] 2018-12-05 2018-12-05 [facility] 1.2.840.114 [id number] [facility] 09:47:09 23:59:00 Encounter Ector Maxine [place] 350.1.13.10 it[place].2.[place] [id number] [facility] [address] [place] 2018-12-05 2018-12-05 [facility] 1.2.870.667 [id number] Univers 07:55:02 09:26:33 Visit Milagros Chen 350.1.13.10 it y of Surgical 4.2.7.2.686 Ar[place] as Specialti [phone] Ut dical es 198 [facility] 2018-12-01 2018-12-01 Emergency Jaki Polanco [facility] 1.2.840.114 [id number] Univers 14:24:08 18:38:00 Sdynie Marcum 350.1.13.10 i ty of [place]2.[place].2.[place] [phone] [facility] [address] 2018-11-18 2018-11-18 Transition Nhan Smith 1.2.840.114 [id number] Univers 00:00:00 00:00:00 of Care Pricilla Wills 350.1.13.10 it y of [place] 4.2.7.2.686 [facility] [id number] [facility] [address] 2018-11-15 2018-11-17 Emergency Mariana Ramirez 1.2.840. 114 [id number] Univers 09:29:33 16:00:00 Sundar Brooke 350.1.13.10 ity of [facility] 4.2.7.2.686 [place] [phone] [facility] [address] 2018-10-07 2018-10-07 Outpatient [facility] [id number] Common 11:00:00 11:00:[address] [facility] 2018-07-28 2018-07-28 Outpatient [facility] 25 [id number] Common 09:57:00 09:57:[address] [facility] 2018-07-25 2018-07-25 Outpatient [facility] 25 [id number] Common 14:40:00 14:40:[address] [facility] Results Test Description Test Time [...] 32.4 g/dL 31.6-35.1 RDW-SD (test code = 19952-9) 45.6 fL 39.0-49.9 RDW-CV (test code = 788-0) 13.2 % 12.0-15.5 PLT (test code = 777-3) See_Comment [Au tomated message] The system which [employer] nerated this result transmit gulshan reference range: 166 - 35 8 10*3/?L. The reference range was not used to interpret th is result as normal/abnormal . MPV (test code = 96502-6) 10.1 fL 9.5-12.9 NRBC/100 WBC (test code = See_Comment [ Automated message] The 7532050662) system which [employer] nerated this result transmit gulshan reference range: 0.0 - 10 .0 /100 WBCs. The reference r luca was not used to interpr et this result as normal/abnor mal. NRBC x10^3 (test code = <0.01 See_Comment [Au tomated message] The 7871614030) system which [employer] nerated this result transmit gulshan reference range: 10*3/?L. The reference range was not u sed to interpret this result as normal/abnormal . GRAN MAT (NEUT) % (test code 47.9 % = 770-8) IMM GRAN % (test code = 0.30 % 5624103707) LYMPH % (test code = 736-9) 39.0 % MONO % (test code = 5905-5) 9.8 % EOS % (test code = 713-8) 2.5 % BASO % (test code = 706-2) 0.5 % GRAN MAT x10^3(ANC) (test 1.76 10*3/uL 1.88-7.09 L code = 6697335630) IMM GRAN x10^3 (test code = <0.03 0.00-0.06 1368429806) LYMPH x10^3 (test code = 1.43 10*3/uL 1.32-3.29 731-0) MONO x10^3 (test code = 0.36 10*3/uL 0.33-0.92 742-7) EOS x10^3 (test code = 0.09 10*3/uL 0.03-0.39 711-2) BASO x10^3 (test code = <0.03 0.01-0.07 704-7) Lab Interpretation (test Abnormal code = 70824-6) [facility]. METABOLIC PANEL (53570)2021-09-08 10:01:57 Test Item Value Reference Range Interpretation Comments NA (test code = 137 mmol/L 135-145 1886666406) K (test code = 4.4 mmol/L 3.5-5.0 3369576257) CL (test code = 105 mmol/L 98-108 1588722260) CO2 TOTAL (test code = 27 mmol/L 23-31 9694682439) AGAP (test code = 2-16 9565295778) BUN (test code = 16 mg/dL 7-23 7748249005) GLUCOSE (test code = 91 mg/dL 70-110 9540419203) CREATININE (test code = 0.80 mg/dL 0.50-1.04 2333638253) TOTAL BILI (test code = 1.3 mg/dL 0.1-1.1 H 2556313092) CALCIUM (test code = 8.9 mg/dL 8.6-10.6 8887493178) T PROTEIN (test code = 7.4 g/dL 6.3-8.2 8161518839) ALBUMIN (test code = 4.0 g/dL 3.5-5.0 0360411103) ALK PHOS (test code = 422 U/L 34-122 H 3637200029) ALTv (test code = 64 U/L 5-35 H 1742-6) AST(SGOT) (test code = 53 U/L 13-40 H 3510805722) eGFR (test code = mL/min/1.73m2 5295401140) KIM (test code = KIM) Association of [...] tests). Lab Interpretation Abnormal (test code = 57455-2) [facility]2022-[facility]27 10:01:57 Test Item Value Reference Range Interpretation Comments MAGNESIUM (test code = 8762763204) 2.1 mg/dL 1.7-2.4 Lab Interpretation (test code = Normal 85237-5) [facility] CenterEBV QUANTITATIVE [id number] 14:36:03 Test Item Value Reference Range Interpretation Comments Jocelyn-Quiros Plasma Virus, Quant. Source (test code = 60582-6) Jocelyn-Uqiros <390 cpy/mL Virus, Quant. Copy/mL (test code = 21479-9) Jocelyn-Quiros <2.6 log INTERPRETIVE Virus, Quant. Log INFORMATIO N: Jocelyn (test code = [place] [address]-2) Quantitative PC RThe quantitative ra nge of [...] rations below the level of detection by e assay.Performed by [employer],50 0 Chipeta Or <truncated> [facility] Center[facility]2022-05-26 08:53:00 Test Item Value Reference Range Interpretation Comments MAGNESIUM (test code = 8250480880) 1.6 mg/dL 1.7-2.4 L Lab Interpretation (test code = Abnormal 29173-8) [facility] (NA, K, CL, CO2, GLUCOSE, BUN, CREATININE, CA)2021-09-07 08:53:00 Test Item Value Reference Range Interpretation Comments NA (test code = 136 mmol/L 135-145 2454577644) K (test code = 4.6 mmol/L 3.5-5.0 0632103265) CL (test code = 103 mmol/L 98-108 2030214315) CO2 TOTAL (test code 26 mmol/L 23-31 = 4636692516) AGAP (test code = 2-16 8727468517) BUN (test code = 14 mg/dL 7-23 3533215005) GLUCOSE (test code = 100 mg/dL 70-110 3093049783) CREATININE (test code 0.64 mg/dL 0.50-1.04 = 6900611775) CALCIUM (test code = 8.9 mg/dL 8.6-10.6 2864803394) eGFR (test code = mL/min/1.73m2 6805036311) KIM (test code = KIM) Association of [...] or urine or abnormalities in imaging tests). [facility] CenterHEPAT[facility] FUNCTION PANEL (53921) (ALB,T.PRO,BILI T,BU/BC,ALT,AST,ALK PHOS)2021-09-07 08:53:00 Test Item Value Reference Range Interpretation Comments TOTAL BILI (test code = 2008354948) 1.2 mg/dL 0.1-1.1 H BILI UNCON (test code = 2924212646) 0.3 mg/dL 0.1-1.1 BILI CONJ (test code = 1969937186) 0.0 mg/dL 0.0-0.3 T PROTEIN (test code = 1240493014) 7.2 g/dL 6.3-8.2 ALBUMIN (test code = 4426100904) 3.9 g/dL 3.5-5.0 ALK PHOS (test code = 8874594184) 449 U/L 34-122 H ALTv (test code = 1742-6) 75 U/L 5-35 H AST(SGOT) (test code = 2203417463) 55 U/L 13-40 H Lab Interpretation (test code = Abnormal 12914-3) [facility] WITH [id number] 08:24:58 Test Item Value Reference Range Interpretation [...] RDW-SD (test code = 45.1 fL 39.0-49.9 90642-4) RDW-CV (test code = 13.2 % 12.0-15.5 788-0) PLT (test code = See_Comment L [Automated 777-3) message] The sy stem which generated this result transmitted reference range : 166 - 358 10*3/ ?L. The reference r luca was not used to interpret this result as normal/abnormal . MPV (test code = 10.0 fL 9.5-12.9 12978-4) NRBC/100 WBC (test See_Comment [Automat ed code = 8975370572) message] The system which generated this result transmitted reference range : 0.0 - 10.0 /100 WBCs. The refer ence range was not u sed to interpret th is result as normal/abnormal . NRBC x10^3 (test code <0.01 See_Comment [Auto mated = 2069958588) message] The s ystem which generated this result transmitted reference range : 10*3/?L. The reference range was not used to interpret this result as normal/abnormal . GRAN MAT (NEUT) % 41.2 % (test code = 770-8) IMM GRAN % (test code 0.30 % = 8349989209) LYMPH % (test code = 45.5 % 736-9) MONO % (test code = 10.0 % 5905-5) EOS % (test code = 2.3 % 713-8) BASO % (test code = 0.7 % 706-2) GRAN MAT x10^3(ANC) 1.24 10*3/uL 1.88-7.09 L (test code = 1819598574) IMM GRAN x10^3 (test <0.03 0.00-0.06 code = 4093110383) LYMPH x10^3 (test code 1.37 10*3/uL 1.32-3.29 = 731-0) MONO x10^3 (test code 0.30 10*3/uL 0.33-0.92 L = 742-7) EOS x10^3 (test code = 0.07 10*3/uL 0.03-0.39 711-2) BASO x10^3 (test code <0.03 0.01-0.07 = 704-7) Lab Interpretation Abnormal (test code = 88389-0) [facility] CenterANTI-NUCLEAR ANTIBODY-PATHOLOGIST [id number] 17:03:59ANA - Pathologist InterpretationANA HEp-2 IIFA Pathologist [...] ? Marnie Mayorga MD ?09/06/2021 ?12:02 PM ?[facility] METABOLIC PANEL (NA, K, CL, CO2, GLUCOSE, BUN, CREATININE, CA)2021-09-06 10:30:13 Test Item Value Reference Range Interpretation Comments NA (test code = 137 mmol/L 135-145 4767535402) K (test code = 4.5 mmol/L 3.5-5.0 Slight hemoly sis 4476730676) CL (test code = 105 mmol/L 98-108 4052850156) CO2 TOTAL (test 27 mmol/L 23-31 code = 1161261774) AGAP (test code = 2-16 0598792835) BUN (test code = 15 mg/dL 7-23 Slight hemo lysis 2863291705) GLUCOSE (test code 102 mg/dL 70-110 = 8797179584) CREATININE (test 0.70 mg/dL 0.50-1.04 code = 3688710488) CALCIUM (test code 8.7 mg/dL 8.6-10.6 = 2652731346) eGFR (test code = mL/min/1.73m2 1332511764) KIM (test code = Association of KIM) [...] or urine or abnormalities in imaging tests). [facility] CenterHEPAT[facility] FUNCTION PANEL (76141) (ALB,T.PRO,BILI T,BU/BC,ALT,AST,ALK PHOS)2021-09-06 10:30:13 Test Item Value Reference Range Interpretation Comments TOTAL BILI (test code = 9144545116) 1.3 mg/dL 0.1-1.1 H BILI UNCON (test code = 1469211046) 0.3 mg/dL 0.1-1.1 BILI CONJ (test code = 2374033357) 0.0 mg/dL 0.0-0.3 T PROTEIN (test code = 9831909104) 7.2 g/dL 6.3-8.2 ALBUMIN (test code = 2955434236) 3.9 g/dL 3.5-5.0 ALK PHOS (test code = 3083937793) 447 U/L 34-122 H ALTv (test code = 1742-6) 89 U/L 5-35 H AST(SGOT) (test code = 3631473110) 69 U/L 13-40 H Lab Interpretation (test code = Abnormal 54304-5) [facility] Center[facility]2022-05-25 10:30:13 Test Item Value Reference Range Interpretation Comments MAGNESIUM (test code = 4256355813) 1.6 mg/dL 1.7-2.4 L Lab Interpretation (test code = Abnormal 24225-7) [facility] CenterANTI-NUCLEAR ANTIBODY [id number] 01:05:07 Test Item Value Reference Range Interpretation Comments LESLY Titer by IFA >=1:1280 (test code = 9226996442) LESLY Pattern Speckled Cytoplasmic (test code = staining reacti ons 3676391601) observed. KIM (test code = Anti-nuclear KIM) [...] specimen will be held for [address] [facility]SM[facility] MUSCLE AB,IGG [id number] 21:57:55 Test Item Value Reference Range Interpretation Comments F-ACTIN (SMOOTH See_Comment If F-Actin (Smooth Muscle) MUSCLE) AB, Antibody, IgG i s negative, IGG(BEAKER) (test the Smooth Muscle Antibody code = 03389-7) titer by IFA is not performed.REFER ENCE [...] for A IH is strong.Performe d By: [employer] [address] [place], [place] [address]Ahbqzaedxc Director: Praveena Mantilla MD [[employer] age] The system which ge nerated this result transmit gulshan reference range : 0 - 19 Units. The refe rence range was not used to interpret this result as normal/abnormal . [facility] CenterMITOCHONDRIAL M2 AB, [id number] 21:57:54 Test Item Value Reference Range Interpretation Comments AMA (test code = See_Comment H REFERENCE I NTERVAL: 59061-2) Mitochondrial ( M2) Antibody, IgG ? ?20.0 [...] does not rule out PBC.Perform ed By: [employer] [facility] [address] [place], [place] [address]Lpeokurrex Director: Praveena Mantilla MD [Aut omated message] The sy stem which generated this result transmit gulshan reference range : 0.0 - 24.9 Units. The reference range was not used to int erpret this result as normal/abnormal . Lab Interpretation Abnormal (test code = 34999-9) [facility] CenterMAG[facility]UM2022-05-24 09:23:46 Test Item Value Reference Range Interpretation Comments MAGNESIUM (test code = 9008060082) 1.9 mg/dL 1.7-2.4 Lab Interpretation (test code = Normal 44327-6) [facility] METABOLIC PANEL (NA, K, CL, CO2, GLUCOSE, BUN, CREATININE, CA)2021-09-05 09:23:46 Test Item Value Reference Range Interpretation Comments NA (test code = 140 mmol/L 135-145 7606951737) K (test code = 4.5 mmol/L 3.5-5.0 8432654515) CL (test code = 106 mmol/L 98-108 9221138074) CO2 TOTAL (test code 27 mmol/L 23-31 = 1097164518) AGAP (test code = 2-16 7612428346) BUN (test code = 16 mg/dL 7-23 6601696390) GLUCOSE (test code = 89 mg/dL 70-110 5518112449) CREATININE (test code 0.67 mg/dL 0.50-1.04 = 3638516491) CALCIUM (test code = 9.0 mg/dL 8.6-10.6 2362073019) eGFR (test code = mL/min/1.73m2 2549397708) KIM (test code = KIM) Association of [...] or urine or abnormalities in imaging tests). [facility] CenterHEPAT[facility] FUNCTION PANEL (20722) (ALB,T.PRO,BILI T,BU/BC,ALT,AST,ALK PHOS)2021-09-05 09:23:46 Test Item Value Reference Range Interpretation Comments TOTAL BILI (test code = 1399483398) 1.5 mg/dL 0.1-1.1 H BILI UNCON (test code = 4904977361) 0.3 mg/dL 0.1-1.1 BILI CONJ (test code = 8419936766) 0.0 mg/dL 0.0-0.3 T PROTEIN (test code = 9824574946) 7.1 g/dL 6.3-8.2 ALBUMIN (test code = 1695842322) 3.9 g/dL 3.5-5.0 ALK PHOS (test code = 4850528440) 558 U/L 34-122 H ALTv (test code = 1742-6) 112 U/L 5-35 H AST(SGOT) (test code = 4518502316) 82 U/L 13-40 H Lab Interpretation (test code = Abnormal 08658-5) [facility] WITH [id number] 09:09:07 Test Item Value Reference Range Interpretation [...] RDW-SD (test code = 45.7 fL 39.0-49.9 15605-3) RDW-CV (test code = 13.2 % 12.0-15.5 788-0) PLT (test code = See_Comment L [Automated 777-3) message] The sy stem which generated this result transmitted reference range : 166 - 358 10*3/ ?L. The reference r luca was not used to interpret this result as normal/abnormal . MPV (test code = 9.7 fL 9.5-12.9 97295-1) NRBC/100 WBC (test See_Comment [Automat ed code = [id number]) message] The system which generated this result transmitted reference range : 0.0 - 10.0 /100 WBCs. The refer ence range was not u sed to interpret th is result as normal/abnormal . NRBC x10^3 (test code <0.01 See_Comment [Auto mated = [id number]) message] The s ystem which generated this result transmitted reference range : 10*3/?L. The reference range was not used to interpret this result as normal/abnormal . GRAN MAT (NEUT) % 43.5 % (test code = 770-8) IMM GRAN % (test code 0.30 % = [id number]) LYMPH % (test code = 39.6 % 736-9) MONO % (test code = 12.8 % 5905-5) EOS % (test code = 3.5 % 713-8) BASO % (test code = 0.3 % 706-2) GRAN MAT x10^3(ANC) 1.25 10*3/uL 1.88-7.09 L (test code = [id number]) IMM GRAN x10^3 (test <0.03 0.00-0.06 code = 0008480224) LYMPH x10^3 (test code 1.14 10*3/uL 1.32-3.29 L = 731-0) MONO x10^3 (test code 0.37 10*3/uL 0.33-0.92 = 742-7) EOS x10^3 (test code = 0.10 10*3/uL 0.03-0.39 711-2) BASO x10^3 (test code <0.03 0.01-0.07 = 704-7) Lab Interpretation Abnormal (test code = 60084-8) [facility] [id number] 22:01:12 Test Item Value Reference Range Interpretation Comments LESLY (test code = Cytoplasmic staining Negative A [id number]) observed KIM (test code = KIM) Negative: [...] observed." Lab Interpretation (test Abnormal code = 72381-5) [facility] BY [id number] 17:58:08 Test Item Value Reference Range Interpretation Comments Specimen Tested Plasma (test code = 1879571664) CMV PCR - log <2.5 See_Comment [Automated IU/mL (test message] The code = 27827-8) system which generated this result transmitted reference range : <2.5 log IU/mL. The reference range was not used to interpr et this result as normal/abnormal . CMV PCR - IU/mL <300 See_Comment [Automated (test code = message] The 49311-6) system which generated this result transmitted reference range : <300 IU/mL. The reference range was not used to interpret this result as normal/abnormal . CMV PCR - log <2.7 See_Comment [Automated copies/mL (test message] The code = 55504-7) system which generated this result transmitted reference range : <2.7 log copies/mL. The reference range was not used to interpret this result as normal/abnormal . CMV PCR - <516 See_Comment [Automated copies/mL (test message] The code = 81851-1) system which generated this result transmitted reference [...] This is a laboratory-developed test using a leach runner labeled ASR (Analyte Specific Reagent) as the reagent providing the specificity of the assay. ?This test was developed and its performance characteristics determined by [facility] Clinical Microbiology Laboratory. It has not been [...] to perform high complexity clinical laboratory testing. [facility] WITH [id number] 10:05:58 Test Item Value Reference Range Interpretation [...] RDW-SD (test code = 45.3 fL 39.0-49.9 78540-6) RDW-CV (test code = 13.1 % 12.0-15.5 788-0) PLT (test code = See_Comment L [Automated 777-3) message] The sy stem which generated this result transmitted reference range : 166 - 358 10*3/ ?L. The reference r luca was not used to interpret this result as normal/abnormal . MPV (test code = 9.8 fL 9.5-12.9 34458-9) NRBC/100 WBC (test See_Comment [Automat ed code = 1918544817) message] The system which generated this result transmitted reference range : 0.0 - 10.0 /100 WBCs. The refer ence range was not u sed to interpret th is result as normal/abnormal . NRBC x10^3 (test code <0.01 See_Comment [Auto mated = 0329435640) message] The s ystem which generated this result transmitted reference range : 10*3/?L. The reference range was not used to interpret this result as normal/abnormal . GRAN MAT (NEUT) % 46.2 % (test code = 770-8) IMM GRAN % (test code 0.30 % = 0367110417) LYMPH % (test code = 36.6 % 736-9) MONO % (test code = 14.2 % 5905-5) EOS % (test code = 2.4 % 713-8) BASO % (test code = 0.3 % 706-2) GRAN MAT x10^3(ANC) 1.36 10*3/uL 1.88-7.09 L (test code = 3157018161) IMM GRAN x10^3 (test <0.03 0.00-0.06 code = 5732609680) LYMPH x10^3 (test code 1.08 10*3/uL 1.32-3.29 L = 731-0) MONO x10^3 (test code 0.42 10*3/uL 0.33-0.92 = 742-7) EOS x10^3 (test code = 0.07 10*3/uL 0.03-0.39 711-2) BASO x10^3 (test code <0.03 0.01-0.07 = 704-7) Lab Interpretation Abnormal (test code = 83611-7) [facility] 09:55:52 Test Item Value Reference Range Interpretation Comments MAGNESIUM (test code = 7810466046) 2.0 mg/dL 1.7-2.4 Lab Interpretation (test code = Normal 61019-0) [facility] METABOLIC PANEL (NA, K, CL, CO2, GLUCOSE, BUN, CREATININE, CA)2021-09-04 09:55:52 Test Item Value Reference Range Interpretation Comments NA (test code = 140 mmol/L 135-145 6078449884) K (test code = 4.2 mmol/L 3.5-5.0 5398497311) CL (test code = 107 mmol/L 98-108 1341082496) CO2 TOTAL (test code 26 mmol/L 23-31 = 0611490518) AGAP (test code = 2-16 1340570181) BUN (test code = 20 mg/dL 7-23 6815462381) GLUCOSE (test code = 106 mg/dL 70-110 1018630513) CREATININE (test code 0.86 mg/dL 0.50-1.04 = 7967751646) CALCIUM (test code = 8.8 mg/dL 8.6-10.6 2896802743) eGFR (test code = mL/min/1.73m2 8983284731) KIM (test code = KIM) Association of [...] or abnormalities in imaging tests). [facility] ([id number][facility] (ALB,T.PRO,BILI T,BU/BC,ALT,AST,ALK PHOS)2021-09-04 09:55:52 Test Item Value Reference Range Interpretation Comments TOTAL BILI (test code = 8125488485) 1.8 mg/dL 0.1-1.1 H BILI UNCON (test code = 6029912509) 0.6 mg/dL 0.1-1.1 BILI CONJ (test code = 2538693924) 0.0 mg/dL 0.0-0.3 T PROTEIN (test code = 0608664621) 7.1 g/dL 6.3-8.2 ALBUMIN (test code = 1096672321) 3.9 g/dL 3.5-5.0 ALK PHOS (test code = 0966501040) 624 U/L 34-122 H ALTv (test code = 1742-6) 149 U/L 5-35 H AST(SGOT) (test code = 6498411102) 120 U/L 13-40 H Lab Interpretation (test code = Abnormal 54971-2) [facility] WITH [id number] 10:18:25 Test Item Value Reference Range Interpretation [...] RDW-SD (test code = 46.3 fL 39.0-49.9 32895-2) RDW-CV (test code = 13.5 % 12.0-15.5 788-0) PLT (test code = See_Comment L [Automated 777-3) message] The sy stem which generated this result transmitted reference range : 166 - 358 10*3/ ?L. The reference r luca was not used to interpret this result as normal/abnormal . MPV (test code = 9.5 fL 9.5-12.9 57158-4) NRBC/100 WBC (test See_Comment [Automat ed code = 2227747055) message] The system which generated this result transmitted reference range : 0.0 - 10.0 /100 WBCs. The refer ence range was not u sed to interpret th is result as normal/abnormal . NRBC x10^3 (test code <0.01 See_Comment [Auto mated = 6445122559) message] The s ystem which generated this result transmitted reference range : 10*3/?L. The reference range was not used to interpret this result as normal/abnormal . GRAN MAT (NEUT) % 49.9 % (test code = 770-8) IMM GRAN % (test code 0.00 % = 4501530982) LYMPH % (test code = 33.0 % 736-9) MONO % (test code = 14.2 % 5905-5) EOS % (test code = 2.6 % 713-8) BASO % (test code = 0.3 % 706-2) GRAN MAT x10^3(ANC) 1.51 10*3/uL 1.88-7.09 L (test code = 6501187696) IMM GRAN x10^3 (test <0.03 0.00-0.06 code = 0215358462) LYMPH x10^3 (test code 1.00 10*3/uL 1.32-3.29 L = 731-0) MONO x10^3 (test code 0.43 10*3/uL 0.33-0.92 = 742-7) EOS x10^3 (test code = 0.08 10*3/uL 0.03-0.39 711-2) BASO x10^3 (test code <0.03 0.01-0.07 = 704-7) Lab Interpretation Abnormal (test code = 94915-2) [facility]OLIC [facility] (11444)2021-09-03 10:04:46 Test Item Value Reference Range Interpretation Comments NA (test code = 140 mmol/L 135-145 5039733459) K (test code = 4.5 mmol/L 3.5-5.0 7557438826) CL (test code = 107 mmol/L 98-108 3691655014) CO2 TOTAL (test code = 22 mmol/L 23-31 L 7209281037) AGAP (test code = 2-16 8567187819) BUN (test code = 20 mg/dL 7-23 2294859621) GLUCOSE (test code = 84 mg/dL 70-110 3239433421) CREATININE (test code = 0.92 mg/dL 0.50-1.04 1464521290) TOTAL BILI (test code = 2.2 mg/dL 0.1-1.1 H 7182403974) CALCIUM (test code = 8.9 mg/dL 8.6-10.6 3166595318) T PROTEIN (test code = 7.4 g/dL 6.3-8.2 8267847784) ALBUMIN (test code = 4.1 g/dL 3.5-5.0 1421739968) ALK PHOS (test code = 658 U/L 34-122 H 3872756039) ALTv (test code = 169 U/L 5-35 H 1742-6) AST(SGOT) (test code = 163 U/L 13-40 H 6660608939) eGFR (test code = mL/min/1.73m2 6859543338) KIM (test code = KIM) Association of [...] tests). Lab Interpretation Abnormal (test code = 58078-8) [facility]2022-[facility]-22 10:04:46 Test Item Value Reference Range Interpretation Comments MAGNESIUM (test code = 7777176465) 2.0 mg/dL 1.7-2.4 Lab Interpretation (test code = Normal 00691-7) [facility] CenterALPHA 1 [id number] 19:24:55 Test Item Value Reference Range Interpretation Comments Anti-Trypsin (test code = 174 mg/dL 83-199 2836175486) Lab Interpretation (test code = Normal 32145-6) [facility] CenterCERULOPLASMIN2022-05-21 19:24:50 Test Item Value Reference Range Interpretation Comments CERULO (test code = 0309457507) 48 mg/dL 25-63 Lab Interpretation (test code = Normal 11744-9) [facility] CenterIMMUNOGLOBULIN [id number] 19:24:45 Test Item Value Reference Range Interpretation Comments IgG (test code = 6164042822) 1210 mg/dL 636-1600 Lab Interpretation (test code = Normal 72084-4) [facility] CenterHAV ANTIBODY (IGG AND IGM)2021-09-02 18:39:52 Test Item Value Reference Range Interpretation Comments HAV Total (test code Positive = 4958179415) HAVT Semi-Quantitative (test code = 6068865521) KIM (test code = KIM) Indicates past or present infection with HAV or exposure to HAV due to vaccination. [facility] CenterFERRITIN [id number] 18:15:24 Test Item Value Reference Range Interpretation Comments FERRITIN (test code = 63.8 ng/mL 11.0-264.0 4989413333) KIM (test code = KIM) Biotin has been reported to cause a negative bias, interpret results relative to patient's use of biotin. Lab Interpretation (test Normal code = 34509-8) [facility] CenterHEPATITIS B SURFACE [id number] 18:11:43 Test Item Value Reference Range Interpretation Comments HBsAg Semi-Quantitative (test code = Negative Negative 5195-3) [facility]FACE [id number] 17:43:23 Test Item Value Reference Range Interpretation Comments HBsAB (test code = Negative 1063365507) HBsAb mIU/mL Semi-Quantitative (test code = 6948951137) KIM (test code = Interpretation: KIM) ?Hepatitis B Surface Antibody ? Negative - Patient is considered to be not immune to infection with HBV. ? ? Positive - Anti-HBs detected at greater than or equal to 12 mIU/mL. ?Patient is considered to be immune to infection with HBV. ? [facility] CenterHBC ANTIBODY (IGM & IGG)2021-09-02 17:43:23 Test Item Value Reference Range Interpretation Comments HBC (test code = 0577101496) Negative HBC Semi-Quantitative (test code = 9565643487) [facility] CenterHCV [id number] 17:43:23 Test Item Value Reference Range Interpretation Comments HCV Ab (test code = 03574-4) Negative HCV Semi-Quantitative (test code = 57169-6) [facility] CenterMAG[facility]UM2022-05-21 17:40:42 Test Item Value Reference Range Interpretation Comments MAGNESIUM (test code = 3464805761) 1.9 mg/dL 1.7-2.4 Lab Interpretation (test code = Normal 85130-0) [facility] CenterPHOSPHORUS2022-05-21 17:40:42 Test Item Value Reference Range Interpretation Comments PHOSPHORUS (test code = 4061939444) 4.0 mg/dL 2.5-5.0 Lab Interpretation (test code = Normal 30759-4) [facility]. METABOLIC PANEL (77421)2021-09-02 17:40:42 Test Item Value Reference Range Interpretation Comments NA (test code = 138 mmol/L 135-145 4235106327) K (test code = 4.2 mmol/L 3.5-5.0 7888031456) CL (test code = 106 mmol/L 98-108 9287647918) CO2 TOTAL (test code = 24 mmol/L 23-31 0890957973) AGAP (test code = 2-16 6430972517) BUN (test code = 14 mg/dL 7-23 3657766736) GLUCOSE (test code = 88 mg/dL 70-110 0152929552) CREATININE (test code = 0.60 mg/dL 0.50-1.04 5496192338) TOTAL BILI (test code = 2.1 mg/dL 0.1-1.1 H 4485442735) CALCIUM (test code = 8.8 mg/dL 8.6-10.6 5416048976) T PROTEIN (test code = 7.3 g/dL 6.3-8.2 3111956357) ALBUMIN (test code = 4.0 g/dL 3.5-5.0 4571925780) ALK PHOS (test code = 659 U/L 34-122 H 9738101859) ALTv (test code = 183 U/L 5-35 H 1742-6) AST(SGOT) (test code = 167 U/L 13-40 H 1092016327) eGFR (test code = mL/min/1.73m2 7407605484) KIM (test code = KIM) Association of [...] tests). Lab Interpretation Abnormal (test code = 51710-8) [facility] CenterACETAMINOPHEN2022-05-21 16:56:49 Test Item Value Reference Range Interpretation Comments ACETAMINOP (test code = <10.0 10.0-30.0 L 5493220477) KIM (test code = KIM) Toxic: Greater than 200 ug/mL @ 4 hour post ingestion or greater than 50 ug/mL @ 12 hour post ingestion Lab Interpretation (test Abnormal code = 48039-9) [facility] WITH [id number] 16:41:43 Test Item Value Reference Range Interpretation Comments WBC (test code = See_Comment L [Automated 6690-2) message] The sy stem which generated this result transmitted reference range : 4.30 - 11.10 10*3/?L. The reference range was not used to interpret this result as normal/abnormal . RBC (test code = See_Comment L [Automated 409-8) message] The sy stem which generated this [...] RDW-SD (test code = 47.5 fL 39.0-49.9 58798-7) RDW-CV (test code = 13.9 % 12.0-15.5 788-0) PLT (test code = See_Comment L [Automated 777-3) message] The sy stem which generated this result transmitted reference range : 166 - 358 10*3/ ?L. The reference r luca was not used to interpret this result as normal/abnormal . MPV (test code = 9.9 fL 9.5-12.9 24933-5) NRBC/100 WBC (test See_Comment [Automat ed code = 1305197165) message] The system which generated this result transmitted reference range : 0.0 - 10.0 /100 WBCs. The refer ence range was not u sed to interpret th is result as normal/abnormal . NRBC x10^3 (test code <0.01 See_Comment [Auto mated = 6787091834) message] The s ystem which generated this result transmitted reference range : 10*3/?L. The reference range was not used to interpret this result as normal/abnormal . GRAN MAT (NEUT) % 47.4 % (test code = 770-8) IMM GRAN % (test code 0.30 % = 0798903874) LYMPH % (test code = 37.4 % 736-9) MONO % (test code = 12.1 % 5905-5) EOS % (test code = 2.5 % 713-8) BASO % (test code = 0.3 % 706-2) GRAN MAT x10^3(ANC) 1.52 10*3/uL 1.88-7.09 L (test code = 0766979488) IMM GRAN x10^3 (test <0.03 0.00-0.06 code = 7001762566) LYMPH x10^3 (test code 1.20 10*3/uL 1.32-3.29 L = 731-0) MONO x10^3 (test code 0.39 10*3/uL 0.33-0.92 = 742-7) EOS x10^3 (test code = 0.08 10*3/uL 0.03-0.39 711-2) BASO x10^3 (test code <0.03 0.01-0.07 = 704-7) Lab Interpretation Abnormal (test code = 57569-7) [facility] CenterProthrombin Time (PTT) / [id number] 15:58:16 Test Item Value Reference Range Interpretation [...] tions. Lab Interpretation (test Normal code = 45774-4) [facility] CenterTROPONIN [id number] 19:18:37 Test Item Value Reference Interpretation Comments Range TROPONIN I (test 0.004 ng/mL See_Comment [Automated code = 0141824760) message] The system which generated this result [...] biotin. Lab Interpretation Normal (test code = 73501-1) [facility] CenterCOM[facility] METABOLIC PANEL (14703)2021-09-01 19:07:17 Test Item Value Reference Range Interpretation Comments NA (test code = 139 mmol/L 135-145 3687150323) K (test code = 4.5 mmol/L 3.5-5.0 7223993701) CL (test code = 104 mmol/L 98-108 2477304717) CO2 TOTAL (test code = 21 mmol/L 23-31 L 6130228865) AGAP (test code = 2-16 2641549300) BUN (test code = 17 mg/dL 7-23 0850912692) GLUCOSE (test code = 90 mg/dL 70-110 8482494115) CREATININE (test code = 0.63 mg/dL 0.50-1.04 0229530748) TOTAL BILI (test code = 1.6 mg/dL 0.1-1.1 H 2589732450) CALCIUM (test code = 9.5 mg/dL 8.6-10.6 6968488306) T PROTEIN (test code = 9.0 g/dL 6.3-8.2 H 0432254907) ALBUMIN (test code = 4.9 g/dL 3.5-5.0 8669545937) ALK PHOS (test code = 820 U/L 34-122 H 4481918838) ALTv (test code = 238 U/L 5-35 H 1742-6) AST(SGOT) (test code = 256 U/L 13-40 H 7210808620) eGFR (test code = mL/min/1.73m2 6144194240) KIM (test code = KIM) Association of [...] tests). Lab Interpretation Abnormal (test code = 86977-7) [facility] CenterMAGNESIUM2022-05-20 19:07:17 Test Item Value Reference Range Interpretation Comments MAGNESIUM (test code = 1455320753) 1.8 mg/dL 1.7-2.4 Lab Interpretation (test code = Normal 97069-4) [facility] CenterLIPASE2022-05-20 19:06:57 Test Item Value Reference Range Interpretation Comments LIPASE (test code = 8452735855) 85 U/L 0-220 Lab Interpretation (test code = Normal 69380-4) [facility] CenterCB WITH [id number] 18:56:38 Test Item Value Reference Range Interpretation Comments WBC (test code = See_Comment [Automated 8390-2) message] The sy stem which generated this result transmitted reference range : 4.30 - 11.10 10*3/?L. The reference range was not used to interpret this result as normal/abnormal . RBC (test code = See_Comment [Automated 769-8) message] The sy stem which generated this [...] RDW-SD (test code = 48.2 fL 39.0-49.9 68045-3) RDW-CV (test code = 14.1 % 12.0-15.5 788-0) PLT (test code = See_Comment [Automated 777-3) message] The sy stem which generated this result transmitted reference range : 166 - 358 10*3/ ?L. The reference r luca was not used to interpret this result as normal/abnormal . MPV (test code = 9.9 fL 9.5-12.9 29688-4) NRBC/100 WBC (test See_Comment [Automat ed code = 1145405097) message] The system which generated this result transmitted reference range : 0.0 - 10.0 /100 WBCs. The refer ence range was not u sed to interpret th is result as normal/abnormal . NRBC x10^3 (test code <0.01 See_Comment [Auto mated = 2797215025) message] The s ystem which generated this result transmitted reference range : 10*3/?L. The reference range was not used to interpret this result as normal/abnormal . GRAN MAT (NEUT) % 65.1 % (test code = 770-8) IMM GRAN % (test code 0.40 % = 9776060436) LYMPH % (test code = 21.5 % 736-9) MONO % (test code = 11.0 % 5905-5) EOS % (test code = 1.6 % 713-8) BASO % (test code = 0.4 % 706-2) GRAN MAT x10^3(ANC) 3.33 10*3/uL 1.88-7.09 (test code = 3185752290) IMM GRAN x10^3 (test <0.03 0.00-0.06 code = 0425583120) LYMPH x10^3 (test code 1.10 10*3/uL 1.32-3.29 L = 731-0) MONO x10^3 (test code 0.56 10*3/uL 0.33-0.92 = 742-7) EOS x10^3 (test code = 0.08 10*3/uL 0.03-0.39 711-2) BASO x10^3 (test code <0.03 0.01-0.07 = 704-7) Lab Interpretation Abnormal (test code = 63958-8) [facility] CenterTROPONIN [id number] 16:53:34 Test Item Value Reference Interpretation Comments Range TROPONIN I (test 0.003 ng/mL See_Comment [Automated code = 6963989164) message] The system which generated this result [...] biotin. Lab Interpretation Normal (test code = 54971-6) [facility] CenterCOMP[facility] METABOLIC PANEL (07116)2021-08-27 16:42:16 Test Item Value Reference Range Interpretation Comments NA (test code = 139 mmol/L 135-145 1857719572) K (test code = 4.2 mmol/L 3.5-5.0 7915320826) CL (test code = 104 mmol/L 98-108 8537113798) CO2 TOTAL (test code = 23 mmol/L 23-31 9727862671) AGAP (test code = 2-16 9116555912) BUN (test code = 12 mg/dL 7-23 8487810405) GLUCOSE (test code = 91 mg/dL 70-110 9337085461) CREATININE (test code = 0.52 mg/dL 0.50-1.04 5144253368) TOTAL BILI (test code = 1.2 mg/dL 0.1-1.1 H 3770906600) CALCIUM (test code = 9.1 mg/dL 8.6-10.6 8510505379) T PROTEIN (test code = 7.7 g/dL 6.3-8.2 4154423702) ALBUMIN (test code = 4.3 g/dL 3.5-5.0 5806790203) ALK PHOS (test code = 530 U/L 34-122 H 0392728507) ALTv (test code = 84 U/L 5-35 H 1742-6) AST(SGOT) (test code = 93 U/L 13-40 H 4094373013) eGFR (test code = mL/min/1.73m2 2344484343) KIM (test code = KIM) Association of [...] tests). Lab Interpretation Abnormal (test code = 93421-0) [facility] CenterLIPASE2022-05-15 16:41:56 Test Item Value Reference Range Interpretation Comments LIPASE (test code = 4693974676) 67 U/L 0-220 Lab Interpretation (test code = Normal 61609-6) [facility] WITH [id number] 16:30:44 Test Item Value Reference Range Interpretation [...] RDW-SD (test code = 49.4 fL 39.0-49.9 40112-7) RDW-CV (test code = 14.4 % 12.0-15.5 788-0) PLT (test code = See_Comment L [Automated 777-3) message] The sy stem which generated this result transmitted reference range : 166 - 358 10*3/ ?L. The reference r luca was not used to interpret this result as normal/abnormal . MPV (test code = 10.1 fL 9.5-12.9 02537-2) IPF % (test code = 2.6 % 1.3-7.7 Platelet count 2468696799) measured by fluorescence method. NRBC/100 WBC (test See_Comment [Automat ed code = 0913517734) message] The system which generated this result transmitted reference range : 0.0 - 10.0 /100 WBCs. The refer ence range was not u sed to interpret th is result as normal/abnormal . NRBC x10^3 (test code <0.01 See_Comment [Auto mated = 2634567254) message] The s ystem which generated this result transmitted reference range : 10*3/?L. The reference range was not used to interpret this result as normal/abnormal . GRAN MAT (NEUT) % 70.3 % (test code = 770-8) IMM GRAN % (test code 0.20 % = 0947956024) LYMPH % (test code = 21.3 % 736-9) MONO % (test code = 6.9 % 5905-5) EOS % (test code = 1.1 % 713-8) BASO % (test code = 0.2 % 706-2) GRAN MAT x10^3(ANC) 3.14 10*3/uL 1.88-7.09 (test code = 7559664152) IMM GRAN x10^3 (test <0.03 0.00-0.06 code = 4275434076) LYMPH x10^3 (test code 0.95 10*3/uL 1.32-3.29 L = 731-0) MONO x10^3 (test code 0.31 10*3/uL 0.33-0.92 L = 742-7) EOS x10^3 (test code = 0.05 10*3/uL 0.03-0.39 711-2) BASO x10^3 (test code <0.03 0.01-0.07 = 704-7) Lab Interpretation Abnormal (test code = 97062-6) [facility] GLUCOSE (AUTOMATED)2021-07-28 22:32:51 Test Item Value Reference Range Interpretation Comments POCT GLU (test code = 5074085117) 94 mg/dL 70-110 Lab Interpretation (test code = Normal 87937-8) [facility] GLUCOSE (AUTOMATED)2021-07-28 16:56:05 Test Item Value Reference Range Interpretation Comments POCT GLU (test code = 9091787042) 107 mg/dL 70-110 Lab Interpretation (test code = Normal 42638-0) [facility] GLUCOSE (AUTOMATED)2021-07-28 13:01:41 Test Item Value Reference Range Interpretation Comments POCT GLU (test code = 4618222358) 104 mg/dL 70-110 Lab Interpretation (test code = Normal 74460-6) [facility]. METABOLIC PANEL (83654)2021-07-28 11:55:38 Test Item Value Reference Range Interpretation Comments NA (test code = 140 mmol/L 135-145 2430656428) K (test code = 3.6 mmol/L 3.5-5.0 7746290096) CL (test code = 108 mmol/L 98-108 8412606075) CO2 TOTAL (test code = 27 mmol/L 23-31 5964429339) AGAP (test code = 2-16 4507805511) BUN (test code = 3 mg/dL 7-23 L 0440340838) GLUCOSE (test code = 93 mg/dL 70-110 5811291453) CREATININE (test code = 0.49 mg/dL 0.50-1.04 L 1315509683) TOTAL BILI (test code = 1.0 mg/dL 0.1-1.8 2628244756) CALCIUM (test code = 8.3 mg/dL 8.6-10.6 L 5299064531) T PROTEIN (test code = 6.5 g/dL 6.3-8.2 7300068024) ALBUMIN (test code = 3.6 g/dL 3.5-5.0 4902437266) ALK PHOS (test code = 431 U/L 34-122 H 1226272626) ALTv (test code = 80 U/L 5-35 H 1742-6) AST(SGOT) (test code = 74 U/L 13-40 H 7397057429) eGFR (test code = mL/min/1.73m2 3817222358) KIM (test code = KIM) Association of [...] tests). Lab Interpretation Abnormal (test code = 70193-5) [facility] 11:55:38 Test Item Value Reference Range Interpretation Comments LIPASE (test code = 0007591808) 74 U/L 0-220 Lab Interpretation (test code = Normal 70938-2) [facility] WITH [id number] 10:40:07 Test Item Value Reference Range Interpretation [...] RDW-SD (test code = 49.7 fL 39.0-49.9 89591-7) RDW-CV (test code = 14.3 % 12.0-15.5 788-0) PLT (test code = See_Comment L [Automated 777-3) message] The sy stem which generated this result transmitted reference range : 166 - 358 10*3/ ?L. The reference r luca was not used to interpret this result as normal/abnormal . MPV (test code = 9.3 fL 9.5-12.9 L 15248-9) NRBC/100 WBC (test See_Comment [Automat ed code = [id number]) message] The system which generated this result transmitted reference range : 0.0 - 10.0 /100 WBCs. The refer ence range was not u sed to interpret th is result as normal/abnormal . NRBC x10^3 (test code <0.01 See_Comment [Auto mated = [id number]) message] The s ystem which generated this result transmitted reference range : 10*3/?L. The reference range was not used to interpret this result as normal/abnormal . GRAN MAT (NEUT) % 49.4 % (test code = 770-8) IMM GRAN % (test code 0.00 % = [id number]) LYMPH % (test code = 38.0 % 736-9) MONO % (test code = 10.0 % 5905-5) EOS % (test code = 2.2 % 713-8) BASO % (test code = 0.4 % 706-2) GRAN MAT x10^3(ANC) 1.34 10*3/uL 1.88-7.09 L (test code = [id number]) IMM GRAN x10^3 (test <0.03 0.00-0.06 code = [id number]) LYMPH x10^3 (test code 1.03 10*3/uL 1.32-3.29 L = 731-0) MONO x10^3 (test code 0.27 10*3/uL 0.33-0.92 L = 742-7) EOS x10^3 (test code = 0.06 10*3/uL 0.03-0.39 711-2) BASO x10^3 (test code <0.03 0.01-0.07 = 704-7) Lab Interpretation Abnormal (test code = 78203-0) [facility] GLUCOSE (AUTOMATED)2021-07-28 09:10:56 Test Item Value Reference Range Interpretation Comments POCT GLU (test code = 4924909272) 80 mg/dL 70-110 Lab Interpretation (test code = Normal 93869-4) [facility] GLUCOSE (AUTOMATED)2021-07-28 04:43:28 Test Item Value Reference Range Interpretation Comments POCT GLU (test code = 8503563611) 115 mg/dL 70-110 H Lab Interpretation (test code = Abnormal 64479-4) [facility] GLUCOSE (AUTOMATED)2021-07-28 01:22:31 Test Item Value Reference Range Interpretation Comments POCT GLU (test code = 1536032060) 94 mg/dL 70-110 Lab Interpretation (test code = Normal 37146-2) [facility] GLUCOSE (AUTOMATED)2021-07-27 21:50:22 Test Item Value Reference Range Interpretation Comments POCT GLU (test code = 5048584009) 108 mg/dL 70-110 Lab Interpretation (test code = Normal 58482-7) [facility] GLUCOSE (AUTOMATED)2021-07-27 17:02:26 Test Item Value Reference Range Interpretation Comments POCT GLU (test code = 3068666347) 102 mg/dL 70-110 Lab Interpretation (test code = Normal 68129-9) [facility] GLUCOSE (AUTOMATED)2021-07-27 12:47:28 Test Item Value Reference Range Interpretation Comments POCT GLU (test code = 2525524207) 106 mg/dL 70-110 Lab Interpretation (test code = Normal 21503-0) [facility] WITH [id number] 12:34:02 Test Item Value Reference Range Interpretation Comments WBC (test code = See_Comment L [Automated 6690-2) message] The sy stem which generated this result transmitted reference range : 4.30 - 11.10 10*3/?L. The reference range was not used to interpret this result as normal/abnormal . RBC (test code = See_Comment L [Automated 169-8) message] The sy stem which generated this [...] RDW-SD (test code = 47.6 fL 39.0-49.9 04940-8) RDW-CV (test code = 14.0 % 12.0-15.5 788-0) PLT (test code = See_Comment L [Automated 777-3) message] The sy stem which generated this result transmitted reference range : 166 - 358 10*3/ ?L. The reference r luca was not used to interpret this result as normal/abnormal . MPV (test code = 9.5 fL 9.5-12.9 72957-3) NRBC/100 WBC (test See_Comment [Automat ed code = 3493427348) message] The system which generated this result transmitted reference range : 0.0 - 10.0 /100 WBCs. The refer ence range was not u sed to interpret th is result as normal/abnormal . NRBC x10^3 (test code <0.01 See_Comment [Auto mated = 6072291826) message] The s ystem which generated this result transmitted reference range : 10*3/?L. The reference range was not used to interpret this result as normal/abnormal . GRAN MAT (NEUT) % 56.3 % (test code = 770-8) IMM GRAN % (test code 0.80 % = 2410557692) LYMPH % (test code = 33.5 % 736-9) MONO % (test code = 8.6 % 5905-5) EOS % (test code = 0.4 % 713-8) BASO % (test code = 0.4 % 706-2) GRAN MAT x10^3(ANC) 1.50 10*3/uL 1.88-7.09 L (test code = 4146899480) IMM GRAN x10^3 (test <0.03 0.00-0.06 code = 3562823980) LYMPH x10^3 (test code 0.89 10*3/uL 1.32-3.29 L = 731-0) MONO x10^3 (test code 0.23 10*3/uL 0.33-0.92 L = 742-7) EOS x10^3 (test code = <0.03 0.03-0.39 L 711-2) BASO x10^3 (test code <0.03 0.01-0.07 = 704-7) Lab Interpretation Abnormal (test code = 11607-0) [facility] 11:06:32 Test Item Value Reference Range Interpretation Comments MAGNESIUM (test code = 2567098544) 2.0 mg/dL 1.7-2.4 Lab Interpretation (test code = Normal 25166-5) [facility] METABOLIC PANEL (NA, K, CL, CO2, GLUCOSE, BUN, CREATININE, CA)2021-07-27 11:06:32 Test Item Value Reference Range Interpretation Comments NA (test code = 141 mmol/L 135-145 2652198727) K (test code = 3.8 mmol/L 3.5-5.0 0146317485) CL (test code = 107 mmol/L 98-108 7878864607) CO2 TOTAL (test code = 25 mmol/L 23-31 1867300831) AGAP (test code = 2-16 2249111215) BUN (test code = 6 mg/dL 7-23 L 6061641676) GLUCOSE (test code = 100 mg/dL 70-110 0264953987) CREATININE (test code = 0.46 mg/dL 0.50-1.04 L 9373774668) CALCIUM (test code = 8.6 mg/dL 8.6-10.6 3595035814) eGFR (test code = mL/min/1.73m2 9607569473) KIM (test code = KIM) Association of [...] tests). Lab Interpretation Abnormal (test code = 44848-3) [facility] GLUCOSE (AUTOMATED)2021-07-27 08:58:50 Test Item Value Reference Range Interpretation Comments POCT GLU (test code = 7815639803) 95 mg/dL 70-110 Lab Interpretation (test code = Normal 60492-8) [facility] GLUCOSE (AUTOMATED)2021-07-27 06:51:37 Test Item Value Reference Range Interpretation Comments POCT GLU (test code = 6299528656) 146 mg/dL 70-110 H Lab Interpretation (test code = Abnormal 70568-8) [facility] GLUCOSE (AUTOMATED)2021-07-27 01:52:10 Test Item Value Reference Range Interpretation Comments POCT GLU (test code = 7790670259) 111 mg/dL 70-110 H Lab Interpretation (test code = Abnormal 40950-7) [facility] Test Item Value Reference Range Interpretation Comments MAGNESIUM (test code = 1137935080) 1.5 mg/dL 1.7-2.4 L Lab Interpretation (test code = Abnormal 71322-9) [facility] GLUCOSE (AUTOMATED)2021-07-26 22:04:12 Test Item Value Reference Range Interpretation Comments POCT GLU (test code = 4100454768) 106 mg/dL 70-110 Lab Interpretation (test code = Normal 34295-5) [facility] GLUCOSE (AUTOMATED)2021-07-26 16:59:07 Test Item Value Reference Range Interpretation Comments POCT GLU (test code = 6566914981) 80 mg/dL 70-110 Lab Interpretation (test code = Normal 17802-4) [facility] METABOLIC PANEL (NA, K, CL, CO2, GLUCOSE, BUN, CREATININE, CA)2021-07-26 12:05:38 Test Item Value Reference Range Interpretation Comments NA (test code = 137 mmol/L 135-145 0399938561) K (test code = 3.9 mmol/L 3.5-5.0 7754990457) CL (test code = 104 mmol/L 98-108 6490340007) CO2 TOTAL (test code = 25 mmol/L 23-31 1997333920) AGAP (test code = 2-16 6150833001) BUN (test code = 8 mg/dL 7-23 9043696200) GLUCOSE (test code = 100 mg/dL 70-110 7287404012) CREATININE (test code = 0.45 mg/dL 0.50-1.04 L 6663063309) CALCIUM (test code = 8.7 mg/dL 8.6-10.6 5307296078) eGFR (test code = mL/min/1.73m2 8443721496) KIM (test code = KIM) Association of [...] tests). Lab Interpretation Abnormal (test code = 04078-9) [facility] 12:04:57 Test Item Value Reference Range Interpretation Comments LIPASE (test code = 8781595790) 58 U/L 0-220 Lab Interpretation (test code = Normal 80502-6) [facility] WITH [id number] 10:22:45 Test Item Value Reference Range Interpretation [...] RDW-SD (test code = 45.4 fL 39.0-49.9 58979-0) RDW-CV (test code = 13.7 % 12.0-15.5 788-0) PLT (test code = See_Comment L [Automated 777-3) message] The sy stem which generated this result transmitted reference range : 166 - 358 10*3/ ?L. The reference r luca was not used to interpret this result as normal/abnormal . MPV (test code = 9.4 fL 9.5-12.9 L 55709-7) NRBC/100 WBC (test See_Comment [Automat ed code = 2985552141) message] The system which generated this result transmitted reference range : 0.0 - 10.0 /100 WBCs. The refer ence range was not u sed to interpret th is result as normal/abnormal . NRBC x10^3 (test code <0.01 See_Comment [Auto mated = 6676556835) message] The s ystem which generated this result transmitted reference range : 10*3/?L. The reference range was not used to interpret this result as normal/abnormal . GRAN MAT (NEUT) % 67.8 % (test code = 770-8) IMM GRAN % (test code 0.60 % = 8655583471) LYMPH % (test code = 24.4 % 736-9) MONO % (test code = 6.6 % 5905-5) EOS % (test code = 0.3 % 713-8) BASO % (test code = 0.3 % 706-2) GRAN MAT x10^3(ANC) 2.25 10*3/uL 1.88-7.09 (test code = 2950955963) IMM GRAN x10^3 (test <0.03 0.00-0.06 code = 5203673796) LYMPH x10^3 (test code 0.81 10*3/uL 1.32-3.29 L = 731-0) MONO x10^3 (test code 0.22 10*3/uL 0.33-0.92 L = 742-7) EOS x10^3 (test code = <0.03 0.03-0.39 L 711-2) BASO x10^3 (test code <0.03 0.01-0.07 = 704-7) Lab Interpretation Abnormal (test code = 29094-7) [facility]74027[facility] (ALB,T.PRO,BILI T,BU/BC,ALT,AST,ALK PHOS)2021-07-25 16:47:05 Test Item Value Reference Range Interpretation Comments TOTAL BILI (test code = 0250401815) 1.1 mg/dL 0.1-1.1 BILI UNCON (test code = 6333664806) 0.4 mg/dL 0.1-1.1 BILI CONJ (test code = 8307152642) 0.0 mg/dL 0.0-0.3 T PROTEIN (test code = 2438895610) 4.0 g/dL 6.3-8.2 L ALBUMIN (test code = 7767589533) 1.9 g/dL 3.5-5.0 L ALK PHOS (test code = 7956655285) 229 U/L 34-122 H ALTv (test code = 1742-6) 59 U/L 5-35 H AST(SGOT) (test code = 6729386569) 68 U/L 13-40 H Lab Interpretation (test code = Abnormal 91126-0) [facility]2021-07-25 14:21:54 Test Item Value Reference Range Interpretation Comments POCT GLU (test code = 9290819990) 113 mg/dL 70-110 H Lab Interpretation (test code = Abnormal 82781-2) [facility] (NA, K, CL, CO2, GLUCOSE, BUN, CREATININE, CA)2021-07-25 14:06:58 Test Item Value Reference Range Interpretation Comments NA (test code = 132 mmol/L 135-145 L 1256711757) K (test code = 4.1 mmol/L 3.5-5.0 8202915443) CL (test code = 110 mmol/L 98-108 H 8737350647) CO2 TOTAL (test code = 13 mmol/L 23-31 L 2084364672) AGAP (test code = 2-16 2418945799) BUN (test code = 4 mg/dL 7-23 L 4478427912) GLUCOSE (test code = 48 mg/dL 70-110 LL 0123563559) CREATININE (test code = 0.21 mg/dL 0.50-1.04 L 6871258781) CALCIUM (test code = 6.4 mg/dL 8.6-10.6 L 6582366717) eGFR (test code = mL/min/1.73m2 4519656723) KIM (test code = KIM) Association of [...] tests). Lab Interpretation Abnormal (test code = 89700-4) [facility] WITH [id number] 14:04:42 Test Item Value Reference Range Interpretation Comments WBC (test code = See_Comment L [Automated 2990-2) message] The sy stem which generated this [...] RDW-SD (test code = 46.7 fL 39.0-49.9 21621-4) RDW-CV (test code = 13.6 % 12.0-15.5 788-0) PLT (test code = See_Comment L [Automated 777-3) message] The sy stem which generated this result transmitted reference range : 166 - 358 10*3/ ?L. The reference r luca was not used to interpret this result as normal/abnormal . MPV (test code = 10.8 fL 9.5-12.9 57964-8) NRBC/100 WBC (test See_Comment [Automat ed code = 6686373156) message] The system which generated this result transmitted reference range : 0.0 - 10.0 /100 WBCs. The refer ence range was not u sed to interpret th is result as normal/abnormal . NRBC x10^3 (test code <0.01 See_Comment [Auto mated = 3242228847) message] The s ystem which generated this result transmitted reference range : 10*3/?L. The reference range was not used to interpret this result as normal/abnormal . GRAN MAT (NEUT) % 53.2 % (test code = 770-8) IMM GRAN % (test code 0.40 % = 2199537020) LYMPH % (test code = 34.3 % 736-9) MONO % (test code = 10.0 % 5905-5) EOS % (test code = 1.7 % 713-8) BASO % (test code = 0.4 % 706-2) GRAN MAT x10^3(ANC) 1.27 10*3/uL 1.88-7.09 L (test code = 9025581438) IMM GRAN x10^3 (test <0.03 0.00-0.06 code = 2942420419) LYMPH x10^3 (test code 0.82 10*3/uL 1.32-3.29 L = 731-0) MONO x10^3 (test code 0.24 10*3/uL 0.33-0.92 L = 742-7) EOS x10^3 (test code = 0.04 10*3/uL 0.03-0.39 711-2) BASO x10^3 (test code <0.03 0.01-0.07 = 704-7) Lab Interpretation Abnormal (test code = 47152-7) [facility] CenterMagn[facility] [id number] 11:34:51 Test Item Value Reference Range Interpretation Comments MAGNESIUM (test code = 7119865511) 1.6 mg/dL 1.7-2.4 L Lab Interpretation (test code = Abnormal 04553-3) [facility] Metabolic Panel (NA, K, CL, CO2, GLUCOSE, BUN, CREATININE, CA)2021-07-24 11:34:31 Test Item Value Reference Range Interpretation Comments NA (test code = 137 mmol/L 135-145 1008215542) K (test code = 4.4 mmol/L 3.5-5.0 3756981245) CL (test code = 106 mmol/L 98-108 6572224373) CO2 TOTAL (test code 23 mmol/L 23-31 = 4246492379) AGAP (test code = 2-16 5105038103) BUN (test code = 14 mg/dL 7-23 5641417041) GLUCOSE (test code = 84 mg/dL 70-110 9046723605) CREATININE (test code 0.54 mg/dL 0.50-1.04 = 0136496339) CALCIUM (test code = 8.7 mg/dL 8.6-10.6 5456991128) eGFR (test code = mL/min/1.73m2 6108774522) KIM (test code = KIM) Association of [...] or urine or abnormalities in imaging tests). [facility]70630) (ALB,T.PRO,BILI T,BU/BC,ALT,AST,ALK PHOS)2021-07-24 11:34:31 Test Item Value Reference Range Interpretation Comments TOTAL BILI (test code = 3695741399) 1.9 mg/dL 0.1-1.1 H BILI UNCON (test code = 5360345926) 0.8 mg/dL 0.1-1.1 BILI CONJ (test code = 2986730708) 0.0 mg/dL 0.0-0.3 T PROTEIN (test code = 4993887195) 8.0 g/dL 6.3-8.2 ALBUMIN (test code = 2228672362) 4.3 g/dL 3.5-5.0 ALK PHOS (test code = 0803141092) 512 U/L 34-122 H ALTv (test code = 1742-6) 111 U/L 5-35 H AST(SGOT) (test code = 4399624407) 107 U/L 13-40 H Lab Interpretation (test code = Abnormal 99921-2) [facility] with [id number] 10:17:09 Test Item Value Reference Range Interpretation [...] RDW-SD (test code = 47.5 fL 39.0-49.9 18532-9) RDW-CV (test code = 13.9 % 12.0-15.5 788-0) PLT (test code = See_Comment L [Automated 777-3) message] The sy stem which generated this result transmitted reference range : 166 - 358 10*3/ ?L. The reference r luca was not used to interpret this result as normal/abnormal . MPV (test code = 11.2 fL 9.5-12.9 52011-6) NRBC/100 WBC (test See_Comment [Automat ed code = 5683986325) message] The system which generated this result transmitted reference range : 0.0 - 10.0 /100 WBCs. The refer ence range was not u sed to interpret th is result as normal/abnormal . NRBC x10^3 (test code <0.01 See_Comment [Auto mated = 3630427816) message] The s ystem which generated this result transmitted reference range : 10*3/?L. The reference range was not used to interpret this result as normal/abnormal . GRAN MAT (NEUT) % 49.4 % (test code = 770-8) IMM GRAN % (test code 0.30 % = 1717943699) LYMPH % (test code = 39.2 % 736-9) MONO % (test code = 8.5 % 5905-5) EOS % (test code = 2.3 % 713-8) BASO % (test code = 0.3 % 706-2) GRAN MAT x10^3(ANC) 1.69 10*3/uL 1.88-7.09 L (test code = 2275475136) IMM GRAN x10^3 (test <0.03 0.00-0.06 code = 0356306405) LYMPH x10^3 (test code 1.34 10*3/uL 1.32-3.29 = 731-0) MONO x10^3 (test code 0.29 10*3/uL 0.33-0.92 L = 742-7) EOS x10^3 (test code = 0.08 10*3/uL 0.03-0.39 711-2) BASO x10^3 (test code <0.03 0.01-0.07 = 704-7) Lab Interpretation Abnormal (test code = 98954-0) [facility] CenterPhosphorus [id number] 01:21:52 Test Item Value Reference Range Interpretation Comments PHOSPHORUS (test code = 5119960220) 3.9 mg/dL 2.5-5.0 Lab Interpretation (test code = Normal 23692-7) [facility] CenterTROPONIN [id number] 22:06:24 Test Item Value Reference Interpretation Comments Range TROPONIN I (test 0.006 ng/mL See_Comment [Automated code = 1191407305) message] The system which generated this result [...] biotin. Lab Interpretation Normal (test code = 92664-0) [facility]MAG[facility]2022-04-10 21:55:26 Test Item Value Reference Range Interpretation Comments MAGNESIUM (test code = 2527234562) 1.6 mg/dL 1.7-2.4 L Lab Interpretation (test code = Abnormal 04592-3) [facility] CenterCOM[facility] METABOLIC PANEL (60039)2021-07-23 21:55:06 Test Item Value Reference Range Interpretation Comments NA (test code = 139 mmol/L 135-145 4607402870) K (test code = 4.3 mmol/L 3.5-5.0 4576909497) CL (test code = 103 mmol/L 98-108 5724277102) CO2 TOTAL (test code = 24 mmol/L 23-31 6732027177) AGAP (test code = 2-16 0443482391) BUN (test code = 15 mg/dL 7-23 0980125095) GLUCOSE (test code = 102 mg/dL 70-110 6683108405) CREATININE (test code = 0.74 mg/dL 0.50-1.04 9479525229) TOTAL BILI (test code = 2.0 mg/dL 0.1-1.1 H 3727492182) CALCIUM (test code = 9.4 mg/dL 8.6-10.6 9674353991) T PROTEIN (test code = 8.9 g/dL 6.3-8.2 H 5065283342) ALBUMIN (test code = 4.9 g/dL 3.5-5.0 5136531540) ALK PHOS (test code = 653 U/L 34-122 H 8123067851) ALTv (test code = 133 U/L 5-35 H 1742-6) AST(SGOT) (test code = 130 U/L 13-40 H 0498731977) eGFR (test code = mL/min/1.73m2 0124216577) KIM (test code = KIM) Association of [...] tests). Lab Interpretation Abnormal (test code = 88561-8) [facility] CenterD-[id number] 21:55:06 Test Item Value Reference Interpretation Comments Range D-DIMER (test code = See_Comment [Autom ated 4044696703) message] The system which generated this result [...] diagnosis. Lab Interpretation Normal (test code = 95739-4) [facility] CenterL[facility]ASE2022-04-10 21:54:46 Test Item Value Reference Range Interpretation Comments LIPASE (test code = 9747642741) 66 U/L 0-220 Lab Interpretation (test code = Normal 14967-4) [facility] CenterCB WITH [id number] 21:44:24 Test Item Value Reference Range Interpretation [...] RDW-SD (test code = 47.5 fL 39.0-49.9 84236-3) RDW-CV (test code = 13.9 % 12.0-15.5 788-0) PLT (test code = See_Comment L [Automated 777-3) message] The sy stem which generated this result transmitted reference range : 166 - 358 10*3/ ?L. The reference r luca was not used to interpret this result as normal/abnormal . MPV (test code = 10.1 fL 9.5-12.9 01825-0) NRBC/100 WBC (test See_Comment [Automat ed code = 9782054688) message] The system which generated this result transmitted reference range : 0.0 - 10.0 /100 WBCs. The refer ence range was not u sed to interpret th is result as normal/abnormal . NRBC x10^3 (test code <0.01 See_Comment [Auto mated = 5904385645) message] The s ystem which generated this result transmitted reference range : 10*3/?L. The reference range was not used to interpret this result as normal/abnormal . GRAN MAT (NEUT) % 67.1 % (test code = 770-8) IMM GRAN % (test code 0.20 % = 7117504837) LYMPH % (test code = 24.9 % 736-9) MONO % (test code = 5.9 % 5905-5) EOS % (test code = 1.7 % 713-8) BASO % (test code = 0.2 % 706-2) GRAN MAT x10^3(ANC) 2.74 10*3/uL 1.88-7.09 (test code = 0338847067) IMM GRAN x10^3 (test <0.03 0.00-0.06 code = 0787598125) LYMPH x10^3 (test code 1.02 10*3/uL 1.32-3.29 L = 731-0) MONO x10^3 (test code 0.24 10*3/uL 0.33-0.92 L = 742-7) EOS x10^3 (test code = 0.07 10*3/uL 0.03-0.39 711-2) BASO x10^3 (test code <0.03 0.01-0.07 = 704-7) Lab Interpretation Abnormal (test code = 64278-1) [facility] CenterCOLBY [id number] 21:47:03 Test Item Value Reference Interpretation Comments Range TROPONIN I (test 0.006 ng/mL See_Comment [Automated code = 0369775264) message] The system which generated this result [...] biotin. Lab Interpretation Normal (test code = 97354-8) [facility] CenterN-TERMINAL [id number] 21:44:02 Test Item Value Reference Range Interpretation Comments NT-proBNP (test code 75 pg/mL See_Comment [Autom ated = 7136728616) message] The system which generated this result transmitted reference range : <=125. The reference range was not used to interpret this result as normal/abnormal . KIM (test code = KIM) Biotin has been reported to cause a negative bias, interpret results relative to patient's use of biotin. Lab Interpretation Normal (test code = 63930-7) [facility] CenterCOMP. METABOLIC PANEL (13918)2021-06-03 21:37:20 Test Item Value Reference Range Interpretation Comments NA (test code = 137 mmol/L 135-145 4781266401) K (test code = 4.2 mmol/L 3.5-5.0 1301310403) CL (test code = 108 mmol/L 98-108 2232731978) CO2 TOTAL (test code = 26 mmol/L 23-31 8536859034) AGAP (test code = 2-16 4439671626) BUN (test code = 13 mg/dL 7-23 4175707596) GLUCOSE (test code = 83 mg/dL 70-110 0817082630) CREATININE (test code = 0.51 mg/dL 0.50-1.04 1332131148) TOTAL BILI (test code = 1.4 mg/dL 0.1-1.1 H 3206099410) CALCIUM (test code = 8.6 mg/dL 8.6-10.6 5615011179) T PROTEIN (test code = 7.8 g/dL 6.3-8.2 9386444917) ALBUMIN (test code = 4.3 g/dL 3.5-5.0 5698702536) ALK PHOS (test code = 731 U/L 34-122 H 2100211249) ALTv (test code = 162 U/L 5-35 H 1742-6) AST(SGOT) (test code = 251 U/L 13-40 H 1556089972) eGFR (test code = mL/min/1.73m2 7325002557) KIM (test code = KIM) Association of [...] tests). Lab Interpretation Abnormal (test code = 85529-0) [facility] CenterLIPASE2022-02-19 21:37:00 Test Item Value Reference Range Interpretation Comments LIPASE (test code = 3565326775) 62 U/L 0-220 Lab Interpretation (test code = Normal 84717-5) [facility] CenterACTIVATED PARTIAL THRMPLAS [id number] 21:33:43 Test Item Value Reference Range Interpretation Comments APTT Patient (test See_Comment [Automat ed code = 3173-2) message] The system which generated this result transmitted reference range : 23 - 38 Seconds . The reference range was not used to interpr et this result as normal/abnormal . KIM (test code = KIM) The [facility] patient population mean normal value for aPTT is 30 seconds. Lab Interpretation Normal (test code = 98814-8) [facility] CenterPROTHROMBIN TIME / [id number] 21:31:42 Test Item Value Reference Range Interpretation [...] tions. Lab Interpretation (test Normal code = 35909-4) [facility] CenterCBC WITH [id number] 21:18:43 Test Item Value Reference Range Interpretation Comments WBC (test code = See_Comment L [Automated 1190-2) message] The sy stem which generated this result transmitted reference range : 4.30 - 11.10 10*3/?L. The reference range was not used to interpret this result as normal/abnormal . RBC (test code = See_Comment L [Automated 699-8) message] The sy stem which generated this [...] RDW-SD (test code = 46.3 fL 39.0-49.9 09638-5) RDW-CV (test code = 13.8 % 12.0-15.5 788-0) PLT (test code = See_Comment L [Automated 777-3) message] The sy stem which generated this result transmitted reference range : 166 - 358 10*3/ ?L. The reference r luca was not used to interpret this result as normal/abnormal . MPV (test code = 9.5 fL 9.5-12.9 19542-9) IPF % (test code = 2.0 % 1.3-7.7 Platelet count 5119335769) measured by fluorescence method. NRBC/100 WBC (test See_Comment [Automat ed code = 2448097192) message] The system which generated this result transmitted reference range : 0.0 - 10.0 /100 WBCs. The refer ence range was not u sed to interpret th is result as normal/abnormal . NRBC x10^3 (test code <0.01 See_Comment [Auto mated = [id number]) message] The s ystem which generated this result transmitted reference range : 10*3/?L. The reference range was not used to interpret this result as normal/abnormal . GRAN MAT (NEUT) % 68.8 % (test code = 770-8) IMM GRAN % (test code 0.20 % = [id number]) LYMPH % (test code = 20.0 % 736-9) MONO % (test code = 10.3 % 5905-5) EOS % (test code = 0.5 % 713-8) BASO % (test code = 0.2 % 706-2) GRAN MAT x10^3(ANC) 2.79 10*3/uL 1.88-7.09 (test code = [id number]) IMM GRAN x10^3 (test <0.03 0.00-0.06 code = [id number]) LYMPH x10^3 (test code 0.81 10*3/uL 1.32-3.29 L = 731-0) MONO x10^3 (test code 0.42 10*3/uL 0.33-0.92 = 742-7) EOS x10^3 (test code = <0.03 0.03-0.39 L 711-2) BASO x10^3 (test code <0.03 0.01-0.07 = 704-7) Lab Interpretation Abnormal (test code = 46446-9) [facility] [id number] 20:33:44 Test Item Value Reference Range Interpretation Comments LACTIC ACID (test code = 1.37 mmol/L 0.50-2.20 [id number]) Lab Interpretation (test code = Normal 42896-7) [facility] [id number] 06:39:31 Test Item Value Reference Interpretation Comments Range TROPONIN I (test 0.027 ng/mL See_Comment [Automated code = 6689177252) message] The system which generated this result [...] biotin. Lab Interpretation Normal (test code = 64583-8) [facility] [id number] 06:36:10 Test Item Value Reference Range Interpretation Comments NT-proBNP (test code 68 pg/mL See_Comment [Autom ated = 8790817372) message] The system which generated this result transmitted reference range : <=125. The reference range was not used to interpret this result as normal/abnormal . KIM (test code = KIM) Biotin has been reported to cause a negative bias, interpret results relative to patient's use of biotin. Lab Interpretation Normal (test code = 00058-8) [facility] WITH [id number] 06:30:54 Test Item Value Reference Range Interpretation [...] RDW-SD (test code = 47.1 fL 39.0-49.9 04398-8) RDW-CV (test code = 13.9 % 12.0-15.5 788-0) PLT (test code = See_Comment L [Automated 777-3) message] The sy stem which generated this result transmitted reference range : 166 - 358 10*3/ ?L. The reference r luca was not used to interpret this result as normal/abnormal . MPV (test code = 10.2 fL 9.5-12.9 87810-2) NRBC/100 WBC (test See_Comment [Automat ed code = 6859405167) message] The system which generated this result transmitted reference range : 0.0 - 10.0 /100 WBCs. The refer ence range was not u sed to interpret th is result as normal/abnormal . NRBC x10^3 (test code <0.01 See_Comment [Auto mated = 8249396952) message] The s ystem which generated this result transmitted reference range : 10*3/?L. The reference range was not used to interpret this result as normal/abnormal . GRAN MAT (NEUT) % 62.6 % (test code = 770-8) IMM GRAN % (test code 0.00 % = 2575153009) LYMPH % (test code = 25.3 % 736-9) MONO % (test code = 9.5 % 5905-5) EOS % (test code = 2.2 % 713-8) BASO % (test code = 0.4 % 706-2) GRAN MAT x10^3(ANC) 1.71 10*3/uL 1.88-7.09 L (test code = 1567929244) IMM GRAN x10^3 (test <0.03 0.00-0.06 code = 8994418497) LYMPH x10^3 (test code 0.69 10*3/uL 1.32-3.29 L = 731-0) MONO x10^3 (test code 0.26 10*3/uL 0.33-0.92 L = 742-7) EOS x10^3 (test code = 0.06 10*3/uL 0.03-0.39 711-2) BASO x10^3 (test code <0.03 0.01-0.07 = 704-7) Lab Interpretation Abnormal (test code = 22867-5) [facility]. METABOLIC PANEL ([id number])2021-05-22 06:27:49 Test Item Value Reference Range Interpretation Comments NA (test code = 138 mmol/L 135-145 5047544315) K (test code = 4.9 mmol/L 3.5-5.0 7145419418) CL (test code = 105 mmol/L 98-108 9395565173) CO2 TOTAL (test code = 24 mmol/L 23-31 3541207187) AGAP (test code = 2-16 9345160698) BUN (test code = 6 mg/dL 7-23 L 5046310840) GLUCOSE (test code = 128 mg/dL 70-110 H 4156944115) CREATININE (test code = 0.54 mg/dL 0.50-1.04 2551396288) TOTAL BILI (test code = 1.3 mg/dL 0.1-1.1 H 9324949487) CALCIUM (test code = 8.4 mg/dL 8.6-10.6 L 7689392645) T PROTEIN (test code = 8.3 g/dL 6.3-8.2 H 0373770932) ALBUMIN (test code = 4.4 g/dL 3.5-5.0 1935916072) ALK PHOS (test code = 650 U/L 34-122 H 9146469255) ALTv (test code = 59 U/L 5-35 H 1742-6) AST(SGOT) (test code = 105 U/L 13-40 H 4160619254) eGFR (test code = mL/min/1.73m2 9795899588) KIM (test code = KIM) Association of [...] tests). Lab Interpretation Abnormal (test code = 57785-2) [facility] MOLECULAR [id number] 15:37:16 Test Item Value Reference Range Interpretation Comments POCT Molecular FluA (test code = Negative Negative 06437-3) POCT Molecular FluB (test code = Negative Negative 47274-0) Lab Interpretation (test code = Normal 07330-6) [facility] [id number] 15:30:18 Test Item Value Reference Range Interpretation Comments POCT Molecular Strep (test code = Negative Negative 18502-2) Lab Interpretation (test code = Normal 69252-1) [facility] [id number] 21:11:35 Test Item Value Reference Interpretation Comments Range TROPONIN I (test 0.002 ng/mL See_Comment [Automated code = 8904968695) message] The system which generated this result [...] biotin. Lab Interpretation Normal (test code = 29405-9) [facility] MET[facility]OLIC PANEL ([id number])2021-04-15 20:54:19 Test Item Value Reference Range Interpretation Comments NA (test code = 137 mmol/L 135-145 4564858165) K (test code = 3.8 mmol/L 3.5-5.0 3195335532) CL (test code = 103 mmol/L 98-108 6909938231) CO2 TOTAL (test code = 26 mmol/L 23-31 4681919869) AGAP (test code = 2-16 7836386616) BUN (test code = 12 mg/dL 7-23 5263467562) GLUCOSE (test code = 111 mg/dL 70-110 H 3893288352) CREATININE (test code = 0.61 mg/dL 0.50-1.04 6708953637) TOTAL BILI (test code = 1.2 mg/dL 0.1-1.1 H 6970944505) CALCIUM (test code = 8.9 mg/dL 8.6-10.6 7989903354) T PROTEIN (test code = 8.1 g/dL 6.3-8.2 4798941598) ALBUMIN (test code = 4.3 g/dL 3.5-5.0 9183400178) ALK PHOS (test code = 693 U/L 34-122 H 0535688516) ALTv (test code = 93 U/L 5-35 H 1742-6) AST(SGOT) (test code = 108 U/L 13-40 H 0027140225) eGFR (test code = mL/min/1.73m2 1678436054) KIM (test code = KIM) Association of [...] tests). Lab Interpretation Abnormal (test code = 74101-0) [facility] 20:53:54 Test Item Value Reference Range Interpretation Comments LIPASE (test code = 9249212017) 59 U/L 0-220 Lab Interpretation (test code = Normal 87432-5) [facility] WITH [id number] 20:33:32 Test Item Value Reference Range Interpretation [...] RDW-SD (test code = 45.8 fL 39.0-49.9 56239-6) RDW-CV (test code = 13.7 % 12.0-15.5 788-0) PLT (test code = See_Comment [Automated 777-3) message] The sy stem which generated this result transmitted reference range : 166 - 358 10*3/ ?L. The reference r luca was not used to interpret this result as normal/abnormal . MPV (test code = 9.5 fL 9.5-12.9 96220-6) NRBC/100 WBC (test See_Comment [Automat ed code = 9020405887) message] The system which generated this result transmitted reference range : 0.0 - 10.0 /100 WBCs. The refer ence range was not u sed to interpret th is result as normal/abnormal . NRBC x10^3 (test code <0.01 See_Comment [Auto mated = 3597365596) message] The s [employer] which generated this result transmitted reference range : 10*3/?L. The reference range was not used to interpret this result as normal/abnormal . GRAN MAT (NEUT) % 70.5 % (test code = 770-8) IMM GRAN % (test code 0.70 % = 9291028686) LYMPH % (test code = 20.2 % 736-9) MONO % (test code = 6.7 % 5905-5) EOS % (test code = 1.4 % 713-8) BASO % (test code = 0.5 % 706-2) GRAN MAT x10^3(ANC) 3.07 10*3/uL 1.88-7.09 (test code = 0154240203) IMM GRAN x10^3 (test 0.03 10*3/uL 0.00-0.06 code = 5092345617) LYMPH x10^3 (test code 0.88 10*3/uL 1.32-3.29 L = 731-0) MONO x10^3 (test code 0.29 10*3/uL 0.33-0.92 L = 742-7) EOS x10^3 (test code = 0.06 10*3/uL 0.03-0.39 711-2) BASO x10^3 (test code <0.03 0.01-0.07 = 704-7) Lab Interpretation Abnormal (test code = 10803-5) [facility] CenterFRANM[facility]YJE[facility]ERRE [id number] 01:49:11 Test Item Value Reference Interpretation Comments Range TROPONIN I (test 0.002 ng/mL See_Comment [Automated code = 7996442283) message] The system which generated this result [...] biotin. Lab Interpretation Normal (test code = 65621-1) [facility] [id number] 01:46:10 Test Item Value Reference Range Interpretation Comments NT-proBNP (test code 56 pg/mL See_Comment [Autom ated = 8427295463) message] The system which generated this result transmitted reference range : <=125. The reference range was not used to interpret this result as normal/abnormal . KIM (test code = KIM) Biotin has been reported to cause a negative bias, interpret results relative to patient's use of biotin. Lab Interpretation Normal (test code = 24849-8) [facility] Center[facility] METABOLIC PANEL ([id number])2021-03-26 01:37:29 Test Item Value Reference Range Interpretation Comments NA (test code = 134 mmol/L 135-145 L 2214525879) K (test code = 4.6 mmol/L 3.5-5.0 9629838148) CL (test code = 103 mmol/L 98-108 7533463191) CO2 TOTAL (test code = 21 mmol/L 23-31 L 8383936717) AGAP (test code = 2-16 2830777577) BUN (test code = 21 mg/dL 7-23 8593158750) GLUCOSE (test code = 98 mg/dL 70-110 9567574013) CREATININE (test code = 0.89 mg/dL 0.50-1.04 7834216322) TOTAL BILI (test code = 1.0 mg/dL 0.1-1.5 0342716151) CALCIUM (test code = 9.6 mg/dL 8.6-10.6 2078951244) T PROTEIN (test code = 8.0 g/dL 6.3-8.2 9468466016) ALBUMIN (test code = 4.5 g/dL 3.5-5.0 0207660687) ALK PHOS (test code = 818 U/L 34-122 H 5963693333) ALTv (test code = 201 U/L 5-35 H 1742-6) AST(SGOT) (test code = 174 U/L 13-40 H 7372163609) eGFR (test code = mL/min/1.73m2 3104492888) KIM (test code = KIM) Association of [...] tests). Lab Interpretation Abnormal (test code = 53227-0) [facility] Center[facility]21-[facility]-12 01:37:09 Test Item Value Reference Range Interpretation Comments LIPASE (test code = 3284520704) 176 U/L 0-220 Lab Interpretation (test code = Normal 90392-9) [facility] WITH [id number] 01:34:08 Test Item Value Reference Range Interpretation Comments WBC (test code = See_Comment [Automated 0890-2) message] The sy stem which generated this [...] RDW-SD (test code = 43.3 fL 39.0-49.9 39693-3) RDW-CV (test code = 13.0 % 12.0-15.5 788-0) PLT (test code = See_Comment [Automated 777-3) message] The sy stem which generated this result transmitted reference range : 166 - 358 10*3/ ?L. The reference r luca was not used to interpret this result as normal/abnormal . MPV (test code = 10.0 fL 9.5-12.9 79895-5) NRBC/100 WBC (test See_Comment [Automat ed code = 0848694915) message] The system which generated this result transmitted reference range : 0.0 - 10.0 /100 WBCs. The refer ence range was not u sed to interpret th is result as normal/abnormal . NRBC x10^3 (test code <0.01 See_Comment [Auto mated = 5916475202) message] The s ystem which generated this result transmitted reference range : 10*3/?L. The reference range was not used to interpret this result as normal/abnormal . GRAN MAT (NEUT) % 71.1 % (test code = 770-8) IMM GRAN % (test code 0.50 % = 8895925651) LYMPH % (test code = 18.8 % 736-9) MONO % (test code = 7.0 % 5905-5) EOS % (test code = 2.3 % 713-8) BASO % (test code = 0.3 % 706-2) GRAN MAT x10^3(ANC) 4.38 10*3/uL 1.88-7.09 (test code = 8404573013) IMM GRAN x10^3 (test 0.03 10*3/uL 0.00-0.06 code = 0727718958) LYMPH x10^3 (test code 1.16 10*3/uL 1.32-3.29 L = 731-0) MONO x10^3 (test code 0.43 10*3/uL 0.33-0.92 = 742-7) EOS x10^3 (test code = 0.14 10*3/uL 0.03-0.39 711-2) BASO x10^3 (test code <0.03 0.01-0.07 = 704-7) Lab Interpretation Abnormal (test code = 15864-1) [facility] MET[facility]OLIC PANEL ([id number])2021-03-21 00:26:35 Test Item Value Reference Range Interpretation Comments NA (test code = 135 mmol/L 135-145 1757629510) K (test code = 4.6 mmol/L 3.5-5.0 4160410606) CL (test code = 104 mmol/L 98-108 2587995030) CO2 TOTAL (test code = 24 mmol/L 23-31 2156818522) AGAP (test code = 2-16 6247789993) BUN (test code = 17 mg/dL 7-23 0966738264) GLUCOSE (test code = 88 mg/dL 70-110 3772882256) CREATININE (test code = 0.70 mg/dL 0.50-1.04 4386892907) TOTAL BILI (test code = 1.0 mg/dL 0.1-1.0 3263932960) CALCIUM (test code = 8.8 mg/dL 8.6-10.6 4033627889) T PROTEIN (test code = 7.2 g/dL 6.3-8.2 0574638002) ALBUMIN (test code = 3.9 g/dL 3.5-5.0 0846407664) ALK PHOS (test code = 844 U/L 34-122 H 3299736630) ALTv (test code = 192 U/L 5-35 H 1742-6) AST(SGOT) (test code = 189 U/L 13-40 H 0302896097) eGFR (test code = mL/min/1.73m2 4807952731) KIM (test code = KIM) Association of [...] tests). Lab Interpretation Abnormal (test code = 60632-7) [facility] CenterCOLBY [id number] 23:26:58 Test Item Value Reference Interpretation Comments Range TROPONIN I (test 0.026 ng/mL See_Comment [Automated code = 7381049838) message] The system which generated this result [...] biotin. Lab Interpretation Normal (test code = 09944-4) [facility] CenterL[facility]ASE2021-12-06 23:15:37 Test Item Value Reference Range Interpretation Comments LIPASE (test code = 5942975596) 214 U/L 0-220 Lab Interpretation (test code = Normal 10165-3) [facility] WITH [id number] 22:59:33 Test Item Value Reference Range Interpretation Comments WBC (test code = See_Comment [Automated 2590-2) message] The sy stem which generated this result transmitted reference range : 4.30 - 11.10 10*3/?L. The reference range was not used to interpret this result as normal/abnormal . RBC (test code = See_Comment L [Automated 399-8) message] The sy stem which [...] RDW-SD (test code = 43.4 fL 39.0-49.9 56217-8) RDW-CV (test code = 13.0 % 12.0-15.5 788-0) PLT (test code = See_Comment [Automated 547-3) message] The sy stem which generated this result transmitted reference range : 166 - 358 10*3/ ?L. The reference r luca was not used to interpret this result as normal/abnormal . MPV (test code = 10.2 fL 9.5-12.9 38087-2) NRBC/100 WBC (test See_Comment [Automat ed code = 1850832345) message] The system which generated this result transmitted reference range : 0.0 - 10.0 /100 WBCs. The refer ence range was not u sed to interpret th is result as normal/abnormal . NRBC x10^3 (test code <0.01 See_Comment [Auto mated = 4983644518) message] The s ystem which generated this result transmitted reference range : 10*3/?L. The reference range was not used to interpret this result as normal/abnormal . GRAN MAT (NEUT) % 65.8 % (test code = 770-8) IMM GRAN % (test code 0.20 % = 8425972332) LYMPH % (test code = 22.8 % 736-9) MONO % (test code = 7.7 % 5905-5) EOS % (test code = 2.9 % 713-8) BASO % (test code = 0.6 % 706-2) GRAN MAT x10^3(ANC) 3.43 10*3/uL 1.88-7.09 (test code = 3624261730) IMM GRAN x10^3 (test <0.03 0.00-0.06 code = 2895516921) LYMPH x10^3 (test code 1.19 10*3/uL 1.32-3.29 L = 731-0) MONO x10^3 (test code 0.40 10*3/uL 0.33-0.92 = 742-7) EOS x10^3 (test code = 0.15 10*3/uL 0.03-0.39 711-2) BASO x10^3 (test code 0.03 10*3/uL 0.01-0.07 = 704-7) Lab Interpretation Abnormal (test code = 78451-1) [facility]. METABOLIC PANEL ([id number])2021-02-12 20:12:57 Test Item Value Reference Range Interpretation Comments NA (test code = 137 mmol/L 135-145 1519829652) K (test code = 4.7 mmol/L 3.5-5.0 0612006181) CL (test code = 106 mmol/L 98-108 1475215055) CO2 TOTAL (test code = 23 mmol/L 23-31 1493430238) AGAP (test code = 2-16 2451453894) BUN (test code = 16 mg/dL 7-23 2016684416) GLUCOSE (test code = 116 mg/dL 70-110 H 1221232181) CREATININE (test code = 0.65 mg/dL 0.50-1.04 3051975386) TOTAL BILI (test code = 1.6 mg/dL 0.1-1.1 H 5863938344) CALCIUM (test code = 9.6 mg/dL 8.6-10.6 7043609651) T PROTEIN (test code = 8.3 g/dL 6.3-8.2 H 0024177590) ALBUMIN (test code = 4.5 g/dL 3.5-5.0 6990481990) ALK PHOS (test code = 650 U/L 34-122 H 7917805705) ALTv (test code = 146 U/L 5-35 H 1742-6) AST(SGOT) (test code = 174 U/L 13-40 H 6058539065) eGFR (test code = mL/min/1.73m2 3039441859) KIM (test code = KIM) Association of [...] tests). Lab Interpretation Abnormal (test code = 24312-5) [facility] 20:12:12 Test Item Value Reference Range Interpretation Comments LIPASE (test code = 1841420887) 86 U/L 0-220 Lab Interpretation (test code = Normal 77017-1) [facility] WITH [id number] 20:02:15 Test Item Value Reference Range Interpretation [...] RDW-SD (test code = 46.4 fL 39.0-49.9 01479-4) RDW-CV (test code = 13.8 % 12.0-15.5 788-0) PLT (test code = See_Comment [Automated 777-3) message] The sy stem which generated this result transmitted reference range : 166 - 358 10*3/ ?L. The reference r luca was not used to interpret this result as normal/abnormal . MPV (test code = 9.8 fL 9.5-12.9 16028-7) NRBC/100 WBC (test See_Comment [Automat ed code = 1736830946) message] The system which generated this result transmitted reference range : 0.0 - 10.0 /100 WBCs. The refer ence range was not u sed to interpret th is result as normal/abnormal . NRBC x10^3 (test code <0.01 See_Comment [Auto mated = 5310896197) message] The s ystem which generated this result transmitted reference range : 10*3/?L. The reference range was not used to interpret this result as normal/abnormal . GRAN MAT (NEUT) % 69.4 % (test code = 770-8) IMM GRAN % (test code 0.40 % = 3453301545) LYMPH % (test code = 20.4 % 736-9) MONO % (test code = 7.2 % 5905-5) EOS % (test code = 2.0 % 713-8) BASO % (test code = 0.6 % 706-2) GRAN MAT x10^3(ANC) 3.77 10*3/uL 1.88-7.09 (test code = 8359921392) IMM GRAN x10^3 (test <0.03 0.00-0.06 code = 2178119332) LYMPH x10^3 (test code 1.11 10*3/uL 1.32-3.29 L = 731-0) MONO x10^3 (test code 0.39 10*3/uL 0.33-0.92 = 742-7) EOS x10^3 (test code = 0.11 10*3/uL 0.03-0.39 711-2) BASO x10^3 (test code 0.03 10*3/uL 0.01-0.07 = 704-7) Lab Interpretation Abnormal (test code = 52309-4) [facility]. METABOLIC PANEL ([id number])2021-01-18 04:36:17 Test Item Value Reference Range Interpretation Comments NA (test code = 137 mmol/L 135-145 8806378101) K (test code = 4.2 mmol/L 3.5-5.0 5732213941) CL (test code = 103 mmol/L 98-108 2758987761) CO2 TOTAL (test code = 27 mmol/L 23-31 3992243603) AGAP (test code = 2-16 6312044982) BUN (test code = 13 mg/dL 7-23 2394492650) GLUCOSE (test code = 100 mg/dL 70-110 8210934010) CREATININE (test code = 0.73 mg/dL 0.50-1.04 8974391343) TOTAL BILI (test code = 1.4 mg/dL 0.1-1.1 H 7483701462) CALCIUM (test code = 9.1 mg/dL 8.6-10.6 4220408476) T PROTEIN (test code = 7.2 g/dL 6.3-8.2 0233346086) ALBUMIN (test code = 4.0 g/dL 3.5-5.0 6721940814) ALK PHOS (test code = 585 U/L 34-122 H 6670368607) ALTv (test code = 78 U/L 5-35 H 1742-6) AST(SGOT) (test code = 73 U/L 13-40 H 6138055717) eGFR (test code = mL/min/1.73m2 3346559274) KIM (test code = KIM) Association of [...] tests). Lab Interpretation Abnormal (test code = 95625-0) [facility] 04:02:39 Test Item Value Reference Range Interpretation Comments LIPASE (test code = 0717251230) 114 U/L 0-220 Lab Interpretation (test code = Normal 90979-9) [facility] WITH [id number] 03:49:11 Test Item Value Reference Range Interpretation [...] (test code = 50.6 fL 39.0-49.9 H 43623-8) RDW-CV (test code = 14.8 % 12.0-15.5 788-0) PLT (test code = See_Comment [Automated 777-3) message] The sy stem which generated this result transmitted reference range : 166 - 358 10*3/ ?L. The reference r luca was not used to interpret this result as normal/abnormal . MPV (test code = 10.7 fL 9.5-12.9 49442-9) NRBC/100 WBC (test See_Comment [Automat ed code = 3047789458) message] The system which generated this result transmitted reference range : 0.0 - 10.0 /100 WBCs. The refer ence range was not u sed to interpret th is result as normal/abnormal . NRBC x10^3 (test code <0.01 See_Comment [Auto mated = 2497398729) message] The s ystem which generated this result transmitted reference range : 10*3/?L. The reference range was not used to interpret this result as normal/abnormal . GRAN MAT (NEUT) % 66.1 % (test code = 770-8) IMM GRAN % (test code 0.20 % = 6829520887) LYMPH % (test code = 23.5 % 736-9) MONO % (test code = 8.1 % 5905-5) EOS % (test code = 1.7 % 713-8) BASO % (test code = 0.4 % 706-2) GRAN MAT x10^3(ANC) 3.49 10*3/uL 1.88-7.09 (test code = 4000310903) IMM GRAN x10^3 (test <0.03 0.00-0.06 code = 5612541900) LYMPH x10^3 (test code 1.24 10*3/uL 1.32-3.29 L = 731-0) MONO x10^3 (test code 0.43 10*3/uL 0.33-0.92 = 742-7) EOS x10^3 (test code = 0.09 10*3/uL 0.03-0.39 711-2) BASO x10^3 (test code <0.03 0.01-0.07 = 704-7) Lab Interpretation Abnormal (test code = 60838-1) [facility] (26207) (ALB,T.PRO,BILI T,BU/BC,ALT,AST,ALK PHOS)2020-12-30 18:48:24 Test Item Value Reference Range Interpretation Comments TOTAL BILI (test code = 9713203856) 2.4 mg/dL 0.1-1.1 H BILI UNCON (test code = 0566651692) 0.5 mg/dL 0.1-1.1 BILI CONJ (test code = 3825169299) 0.0 mg/dL 0.0-0.3 T PROTEIN (test code = 9626754428) 9.8 g/dL 6.3-8.2 H ALBUMIN (test code = 4654427637) 4.9 g/dL 3.5-5.0 ALK PHOS (test code = 0091286612) 1181 U/L 34-122 H ALTv (test code = 1742-6) 271 U/L 5-35 H AST(SGOT) (test code = 1141298955) 192 U/L 13-40 H Lab Interpretation (test code = Abnormal 39849-2) [facility] (70184) (ALB,T.PRO,BILI T,BU/BC,ALT,AST,ALK PHOS)2020-12-30 18:48:24 Test Item Value Reference Range Interpretation Comments TOTAL BILI (test code = 8882661472) 2.4 mg/dL 0.1-1.1 H BILI UNCON (test code = 0397464669) 0.5 mg/dL 0.1-1.1 BILI CONJ (test code = 0417129939) 0.0 mg/dL 0.0-0.3 T PROTEIN (test code = 6625153350) 9.8 g/dL 6.3-8.2 H ALBUMIN (test code = 2244330248) 4.9 g/dL 3.5-5.0 ALK PHOS (test code = 5409877563) 1181 U/L 34-122 H ALTv (test code = 1742-6) 271 U/L 5-35 H AST(SGOT) (test code = 9942950462) 192 U/L 13-40 H Lab Interpretation (test code = Abnormal 09877-2) [facility]OL[facility] PAN[facility] (NA, K, CL, CO2, GLUCOSE, BUN, CREATININE, CA)2020-12-30 18:48:02 Test Item Value Reference Range Interpretation Comments NA (test code = 138 mmol/L 135-145 3204728716) K (test code = 4.7 mmol/L 3.5-5.0 3334871042) CL (test code = 106 mmol/L 98-108 6688291387) CO2 TOTAL (test code = 20 mmol/L 23-31 L 7281898678) AGAP (test code = 2-16 7293316392) BUN (test code = 19 mg/dL 7-23 7999769162) GLUCOSE (test code = 134 mg/dL 70-110 H 3252431547) CREATININE (test code = 0.62 mg/dL 0.50-1.04 6835887829) CALCIUM (test code = 10.1 mg/dL 8.6-10.6 7922804323) eGFR (test code = mL/min/1.73m2 8118565459) KIM (test code = KIM) Association of [...] tests). Lab Interpretation Abnormal (test code = 22700-8) [facility]02 Test Item Value Reference Range Interpretation Comments LIPASE (test code = 7236823924) 292 U/L 0-220 H Lab Interpretation (test code = Abnormal 40354-5) [facility] (NA, K, CL, CO2, GLUCOSE, BUN, CREATININE, CA)2020-12-30 18:48:02 Test Item Value Reference Range Interpretation Comments NA (test code = 138 mmol/L 135-145 2250522629) K (test code = 4.7 mmol/L 3.5-5.0 2921890081) CL (test code = 106 mmol/L 98-108 2432405043) CO2 TOTAL (test code = 20 mmol/L 23-31 L 1730017230) AGAP (test code = 2-16 5795956810) BUN (test code = 19 mg/dL 7-23 7578110990) GLUCOSE (test code = 134 mg/dL 70-110 H 6685422133) CREATININE (test code = 0.62 mg/dL 0.50-1.04 9505243177) CALCIUM (test code = 10.1 mg/dL 8.6-10.6 8285432355) eGFR (test code = mL/min/1.73m2 6234461043) KIM (test code = KIM) Association of [...] tests). Lab Interpretation Abnormal (test code = 11633-7) [facility] 18:[facility]:02 Test Item Value Reference Range Interpretation Comments LIPASE (test code = 5545485386) 292 U/L 0-220 H Lab Interpretation (test code = Abnormal 99203-9) [facility] WITH GJFW2502-02-21 18:39:23 Test Item Value Reference Range Interpretation Comments WBC (test code = See_Comment [Automated 2990-2) message] The sy stem which generated this result transmitted reference range : 4.30 - 11.10 10*3/?L. The reference range was not used to interpret this result as normal/abnormal . RBC (test code = See_Comment [Automated 761-8) message] The sy stem which generated this [...] RDW-SD (test code = 48.4 fL 39.0-49.9 82770-6) RDW-CV (test code = 14.6 % 12.0-15.5 788-0) PLT (test code = See_Comment [Automated 777-3) message] The sy stem which generated this result transmitted reference range : 166 - 358 10*3/ ?L. The reference r luca was not used to interpret this result as normal/abnormal . MPV (test code = 10.1 fL 9.5-12.9 36468-7) NRBC/100 WBC (test See_Comment [Automat ed code = 5997460718) message] The system which generated this result transmitted reference range : 0.0 - 10.0 /100 WBCs. The refer ence range was not u sed to interpret th is result as normal/abnormal . NRBC x10^3 (test code <0.01 See_Comment [Auto mated = 0178233073) message] The s ystem which generated this result transmitted reference range : 10*3/?L. The reference range was not used to interpret this result as normal/abnormal . GRAN MAT (NEUT) % 75.2 % (test code = 770-8) IMM GRAN % (test code 0.60 % = 3483204969) LYMPH % (test code = 17.0 % 736-9) MONO % (test code = 5.8 % 5905-5) EOS % (test code = 0.9 % 713-8) BASO % (test code = 0.5 % 706-2) GRAN MAT x10^3(ANC) 8.11 10*3/uL 1.88-7.09 H (test code = 5949666393) IMM GRAN x10^3 (test 0.06 10*3/uL 0.00-0.06 code = 5729857950) LYMPH x10^3 (test code 1.83 10*3/uL 1.32-3.29 = 731-0) MONO x10^3 (test code 0.62 10*3/uL 0.33-0.92 = 742-7) EOS x10^3 (test code = 0.10 10*3/uL 0.03-0.39 711-2) BASO x10^3 (test code 0.05 10*3/uL 0.01-0.07 = 704-7) Lab Interpretation Abnormal (test code = 91005-2) [facility] WITH [id number] 18:39:23 Test Item Value Reference Range Interpretation [...] RDW-SD (test code = 48.4 fL 39.0-49.9 57409-1) RDW-CV (test code = 14.6 % 12.0-15.5 788-0) PLT (test code = See_Comment [Automated 777-3) message] The sy stem which generated this result transmitted reference range : 166 - 358 10*3/ ?L. The reference r luca was not used to interpret this result as normal/abnormal . MPV (test code = 10.1 fL 9.5-12.9 11408-1) NRBC/100 WBC (test See_Comment [Automat ed code = 8336010008) message] The system which generated this result transmitted reference range : 0.0 - 10.0 /100 WBCs. The refer ence range was not u sed to interpret th is result as normal/abnormal . NRBC x10^3 (test code <0.01 See_Comment [Auto mated = 3133679712) message] The s ystem which generated this result transmitted reference range : 10*3/?L. The reference range was not used to interpret this result as normal/abnormal . GRAN MAT (NEUT) % 75.2 % (test code = 770-8) IMM GRAN % (test code 0.60 % = 3673443160) LYMPH % (test code = 17.0 % 736-9) MONO % (test code = 5.8 % 5905-5) EOS % (test code = 0.9 % 713-8) BASO % (test code = 0.5 % 706-2) GRAN MAT x10^3(ANC) 8.11 10*3/uL 1.88-7.09 H (test code = 0738487876) IMM GRAN x10^3 (test 0.06 10*3/uL 0.00-0.06 code = 7771122942) LYMPH x10^3 (test code 1.83 10*3/uL 1.32-3.29 = 731-0) MONO x10^3 (test code 0.62 10*3/uL 0.33-0.92 = 742-7) EOS x10^3 (test code = 0.10 10*3/uL 0.03-0.39 711-2) BASO x10^3 (test code 0.05 10*3/uL 0.01-0.07 = 704-7) Lab Interpretation Abnormal (test code = 17998-0) [facility] PELVIS COMPLETE WITH [id number] 23:13:25Focal echogenicity in the left ovary measuring [...] Otherwise unremarkable pelvic ultrasound.RL: [id number] OF REPORT UnSaint [facility] CenterLactic Acid Whole Necdf8828-62-97 22:23:55 Test Item Value Reference Range Interpretation Comments LACTIC ACID (test code = 1.49 mmol/L 0.50-2.20 1775769633) Lab Interpretation (test code = Normal 09762-3) [facility]EL[facility] W [id number] 22:20:59 1. ?No acute intra-abdominal abnormality. 2. [...] reviewed this study and agree with the abovereport.[facility] CenterURINALYSIS2021-08-23 20:42:19 Test Item Value Reference Range Interpretation Comments APPEARANCE (test code = Clear Clear 3124431689) COLOR (test code = Romelia Yellow A 2152094446) PH (test code = 4.8-8.0 3210084573) SP GRAVITY (test code = 1.003-1.030 9498756380) GLU U QUAL (test code = Normal Normal 2565401908) BLOOD (test code = Negative Negative 8704295170) KETONES (test code = Negative Negative 8616583662) PROTEIN (test code = 30 mg/dL Negative A 2887-8) UROBILIN (test code = 4.0 mg/dL Normal A 3379841714) BILIRUBIN (test code = 2 mg/dL Negative A 7759396769) NITRITE (test code = Negative Negative 7848923570) LEUK NICHOLE (test code = Negative Negative 2530116928) RBC/HPF (test code = See_Comment [Autom ated message] 7016728541) The system [employer] generated this result transmit gulshan reference range : 0 - 3 HPF. The refe rence range was not u sed to interpret th is result as normal/abnormal . WBC/HPF (test code = See_Comment [Autom ated message] 3393067849) The system [employer] generated this result transmit gulshan reference range : 0 - 5 HPF. The refe rence range was not u sed to interpret th is result as normal/abnormal . BACTERIA (test code = Few Negative A 0092760933) MUCOUS (test code = Slight Negative LPF A 3139198137) SQ EPITH (test code = HPF 4981441976) HYAL CAST (test code = See_Comment [Aut omated message] 8615027820) The system [employer] generated this result transmit gulshan reference range : <=2 LPF. The refere nce range was not u sed to interpret th is result as normal/abnormal . Lab Interpretation (test Abnormal code = 21612-4) [facility]. METABOLIC PANEL (85428)2020-12-05 20:38:13 Test Item Value Reference Range Interpretation Comments NA (test code = 139 mmol/L 135-145 1083744069) K (test code = 3.6 mmol/L 3.5-5.0 9923119952) CL (test code = 106 mmol/L 98-108 0919814942) CO2 TOTAL (test code = 21 mmol/L 23-31 L 6278268158) AGAP (test code = 2-16 7774176087) BUN (test code = 12 mg/dL 7-23 0257349344) GLUCOSE (test code = 91 mg/dL 70-110 1806551984) CREATININE (test code = 0.53 mg/dL 0.50-1.04 4107837206) TOTAL BILI (test code = 3.6 mg/dL 0.1-1.1 H 2884364282) CALCIUM (test code = 9.8 mg/dL 8.6-10.6 2344389764) T PROTEIN (test code = 9.1 g/dL 6.3-8.2 H 7761546804) ALBUMIN (test code = 4.6 g/dL 3.5-5.0 5023607883) ALK PHOS (test code = 1229 U/L 34-122 H 2521003447) ALTv (test code = 311 U/L 5-35 H 1742-6) AST(SGOT) (test code = 280 U/L 13-40 H 1107207890) eGFR (test code = mL/min/1.73m2 4543770801) KIM (test code = KIM) Association of [...] tests). Lab Interpretation Abnormal (test code = 74026-0) [facility] CenterL[facility]2021-08-23 20:37:32 Test Item Value Reference Range Interpretation Comments LIPASE (test code = 4052548073) 168 U/L 0-220 Lab Interpretation (test code = Normal 67045-9) [facility] WITH [id number] 20:25:55 Test Item Value Reference Range Interpretation [...] RDW-SD (test code = 49.3 fL 39.0-49.9 64955-9) RDW-CV (test code = 15.0 % 12.0-15.5 788-0) PLT (test code = See_Comment [Automated 777-3) message] The sy stem which generated this result transmitted reference range : 166 - 358 10*3/ ?L. The reference r luca was not used to interpret this result as normal/abnormal . MPV (test code = 10.2 fL 9.5-12.9 87015-0) NRBC/100 WBC (test See_Comment [Automat ed code = 8434755140) message] The system which generated this result transmitted reference range : 0.0 - 10.0 /100 WBCs. The refer ence range was not u sed to interpret th is result as normal/abnormal . NRBC x10^3 (test code <0.01 See_Comment [Auto mated = 2326148582) message] The s ystem which generated this result transmitted reference range : 10*3/?L. The reference range was not used to interpret this result as normal/abnormal . GRAN MAT (NEUT) % 68.6 % (test code = 770-8) IMM GRAN % (test code 0.40 % = 8749872593) LYMPH % (test code = 21.2 % 736-9) MONO % (test code = 7.8 % 5905-5) EOS % (test code = 1.6 % 713-8) BASO % (test code = 0.4 % 706-2) GRAN MAT x10^3(ANC) 3.50 10*3/uL 1.88-7.09 (test code = 0481364085) IMM GRAN x10^3 (test <0.03 0.00-0.06 code = 9747945667) LYMPH x10^3 (test code 1.08 10*3/uL 1.32-3.29 L = 731-0) MONO x10^3 (test code 0.40 10*3/uL 0.33-0.92 = 742-7) EOS x10^3 (test code = 0.08 10*3/uL 0.03-0.39 711-2) BASO x10^3 (test code <0.03 0.01-0.07 = 704-7) Lab Interpretation Abnormal (test code = 36000-7) [facility] CenterLIPID PANEL (78762)(TOTAL CHOLESTEROL, TRIGLYCERIDES, HDL)2020-10-12 16:46:34 Test Item Value Reference Range Interpretation Comments CHOL (test code = 307 mg/dL 120-200 H 8987473335) HDL (test code = 93 mg/dL >50 6844169701) HDLC RATIO (test code = See_Comment [Au tomated message] 6886032937) The system [employer] generated this result transmit gulshan reference range : <=4.5. The refe rence range was not u sed to interpret th is result as normal/abnormal . TRIG (test code = 131 mg/dL 30-170 1201730815) LDL CHOL (test code = 188 mg/dL See_Comment H [Auto mated message] 15731-3) The system [employer] generated this result transmit gulshan reference range : <=160. The refe rence range was not u sed to interpret th is result as normal/abnormal . VLDL (test code = 26 mg/dL 5-60 5291211271) Lab Interpretation (test Abnormal code = 96326-8) [facility] CenterMagnesium Hqknw7093-22-40 09:02:26 Test Item Value Reference Range Interpretation Comments MAGNESIUM (test code = 2728427159) 1.9 mg/dL 1.7-2.4 Lab Interpretation (test code = Normal 02879-6) [facility] CenterHEPATIC FUNCTION PANEL (11476) (ALB,T.PRO,BILI T,BU/BC,ALT,AST,ALK PHOS)2020-10-12 09:02:26 Test Item Value Reference Range Interpretation Comments TOTAL BILI (test code = 6969118473) 1.0 mg/dL 0.1-1.1 BILI UNCON (test code = 0361501033) 0.5 mg/dL 0.1-1.1 BILI CONJ (test code = 7685981792) 0.0 mg/dL 0.0-0.3 T PROTEIN (test code = 5579867228) 7.8 g/dL 6.3-8.2 ALBUMIN (test code = 2082857463) 4.3 g/dL 3.5-5.0 ALK PHOS (test code = 8617711422) 608 U/L 34-122 H ALTv (test code = 1742-6) 156 U/L 5-35 H AST(SGOT) (test code = 7905039707) 136 U/L 13-40 H Lab Interpretation (test code = Abnormal 29517-5) [facility] CenterProthrombin Time / [id number] 08:48:50 Test Item Value Reference Range Interpretation Comments PROTIME PATIENT (test See_Comment [Auto mated message] code = 5964-2) The system [employer] generated this result transmitted ref erence range: 10.1 - 1 2.6 Seconds. The re ference range was not u sed to interpret this result as normal/abnor mal. INR (test code = 6301-6) Nor mal INR <1.1; Warfarin Therap eutic range 2.0 to 3. 0 or 2.5 to 3.5, dep ending upon the indica tions. Lab Interpretation (test Normal code = 78526-1) [facility] CenteraPTT2021-06-30 08:48:50 Test Item Value Reference Range Interpretation Comments APTT Patient (test code See_Comment H [Au tomated message] = 3173-2) The system [employer] generated this result transmitted ref erence range: 26 - 36 Seconds. The reference range was not used to int erpret this result as normal/abnormal . Lab Interpretation (test Abnormal code = 49576-7) [facility] with Exlgyuwksxet3256-52-52 08:31:22 Test Item Value Reference Range Interpretation [...] RDW-SD (test code = 41.3 fL 39.0-49.9 10978-7) RDW-CV (test code = 12.6 % 12.0-15.5 788-0) PLT (test code = See_Comment [Automated 777-3) message] The sy stem which generated this result transmitted reference range : 166 - 358 10*3/ ?L. The reference r luca was not used to interpret this result as normal/abnormal . MPV (test code = 9.1 fL 9.5-12.9 L 42609-3) NRBC/100 WBC (test See_Comment [Automat ed code = 4278157411) message] The system which generated this result transmitted reference range : 0.0 - 10.0 /100 WBCs. The refer ence range was not u sed to interpret th is result as normal/abnormal . NRBC x10^3 (test code <0.01 See_Comment [Auto mated = 6855460986) message] The s ystem which generated this result transmitted reference range : 10*3/?L. The reference range was not used to interpret this result as normal/abnormal . GRAN MAT (NEUT) % 62.6 % (test code = 770-8) IMM GRAN % (test code 0.40 % = 0591845832) LYMPH % (test code = 26.8 % 736-9) MONO % (test code = 7.7 % 5905-5) EOS % (test code = 2.1 % 713-8) BASO % (test code = 0.4 % 706-2) GRAN MAT x10^3(ANC) 3.32 10*3/uL 1.88-7.09 (test code = 5637911700) IMM GRAN x10^3 (test <0.03 0.00-0.06 code = 7017712450) LYMPH x10^3 (test code 1.42 10*3/uL 1.32-3.29 = 731-0) MONO x10^3 (test code 0.41 10*3/uL 0.33-0.92 = 742-7) EOS x10^3 (test code = 0.11 10*3/uL 0.03-0.39 711-2) BASO x10^3 (test code <0.03 0.01-0.07 = 704-7) Lab Interpretation Abnormal (test code = 47201-5) [facility] METABOLIC PANEL (NA, K, CL, CO2, GLUCOSE, BUN, CREATININE, CA)2020-10-12 04:16:15 Test Item Value Reference Range Interpretation Comments NA (test code = 138 mmol/L 135-145 5414331556) K (test code = 4.1 mmol/L 3.5-5.0 6491472609) CL (test code = 104 mmol/L 98-108 0787780185) CO2 TOTAL (test code 23 mmol/L 23-31 = 0924161468) AGAP (test code = 2-16 6332224553) BUN (test code = 16 mg/dL 7-23 5368942465) GLUCOSE (test code = 83 mg/dL 70-110 3822329930) CREATININE (test code 0.63 mg/dL 0.50-1.04 = 2896456803) CALCIUM (test code = 9.4 mg/dL 8.6-10.6 7988961877) eGFR (test code = mL/min/1.73m2 4692063516) KIM (test code = KIM) Association of [...] or urine or abnormalities in imaging tests). [facility] CenterHEPATIC FUNCTION PANEL (82708) (ALB,T.PRO,BILI T,BU/BC,ALT,AST,ALK PHOS)2020-10-12 04:16:15 Test Item Value Reference Range Interpretation Comments TOTAL BILI (test code = 1090933804) 1.1 mg/dL 0.1-1.1 BILI UNCON (test code = 3958747487) 0.5 mg/dL 0.1-1.1 BILI CONJ (test code = 8125051659) 0.0 mg/dL 0.0-0.3 T PROTEIN (test code = 6449310090) 8.5 g/dL 6.3-8.2 H ALBUMIN (test code = 9957676504) 4.6 g/dL 3.5-5.0 ALK PHOS (test code = 0868197885) 679 U/L 34-122 H ALTv (test code = 1742-6) 168 U/L 5-35 H AST(SGOT) (test code = 3293053769) 143 U/L 13-40 H Lab Interpretation (test code = Abnormal 79656-0) [facility] CenterCOVID-19 (ID NOW RAPID TESTING)2020-10-11 16:36:41 Test Item Value Reference Range Interpretation Comments SARS-CoV-2 Rapid ID NOW Not Detected Not Detected (test code = 93287-4) KIM (test code = KIM) ID NOW COVID-19 Assay is an isothermal nucleic acid amplification test intended for the qualitative detection of nucleic acid from SARS-CoV-2 viral RNA in nasopharyngeal ([employer]) specimens. It is used under Emergency Use [...] indicated. Lab Interpretation Normal (test code = 81206-1) [facility] CenterUS GALL [id number] 15:28:53HISTORY: Rule out biliary duct stenosis. COMPARISON: [...] ductstenosis cannot be adequately evaluated by this study.[facility], Radiant Results Inft User - 10/11/2020 [...] ductstenosis cannot be adequately evaluated by this study.[facility] Troponin [id number] 14:35:05 Test Item Value Reference Interpretation Comments Range TROPONIN I (test 0.004 ng/mL See_Comment [Automated code = 5138145967) message] The system which generated this result [...] biotin. Lab Interpretation Normal (test code = 83190-6) [facility] CenterHepatic Function Panel (ALB, T.PRO, BILI T, BU/BC, ALT, AST, ALK PHOS)2020-10-11 14:24:25 Test Item Value Reference Range Interpretation Comments TOTAL BILI (test code = 6755559944) 0.9 mg/dL 0.1-1.1 BILI UNCON (test code = 9506133755) 0.3 mg/dL 0.1-1.1 BILI CONJ (test code = 1315100739) 0.0 mg/dL 0.0-0.3 T PROTEIN (test code = 4347357619) 9.0 g/dL 6.3-8.2 H ALBUMIN (test code = 7381916521) 4.8 g/dL 3.5-5.0 ALK PHOS (test code = 4585688542) 752 U/L 34-122 H ALTv (test code = 1742-6) 164 U/L 5-35 H AST(SGOT) (test code = 5424967308) 166 U/L 13-40 H Lab Interpretation (test code = Abnormal 93593-4) [facility] Metabolic Panel (NA, K, CL, CO2, GLUCOSE, BUN, CREATININE, CA)2020-10-11 14:24:05 Test Item Value Reference Range Interpretation Comments NA (test code = 139 mmol/L 135-145 9578782156) K (test code = 4.3 mmol/L 3.5-5.0 2076190075) CL (test code = 106 mmol/L 98-108 8240277964) CO2 TOTAL (test code = 22 mmol/L 23-31 L 1735079724) AGAP (test code = 2-16 7770975212) BUN (test code = 15 mg/dL 7-23 2869378764) GLUCOSE (test code = 106 mg/dL 70-110 4974740334) CREATININE (test code = 0.63 mg/dL 0.50-1.04 0332614788) CALCIUM (test code = 10.0 mg/dL 8.6-10.6 4878223036) eGFR (test code = mL/min/1.73m2 2050354612) KIM (test code = KIM) Association of [...] tests). Lab Interpretation Abnormal (test code = 32639-9) [facility] CenterLipase Dsajp0076-96-79 14:24:05 Test Item Value Reference Range Interpretation Comments LIPASE (test code = 7816835983) 169 U/L 0-220 Lab Interpretation (test code = Normal 59704-5) [facility] CenterUrinalysis2021-06-29 14:23:55 Test Item Value Reference Range Interpretation Comments APPEARANCE (test code = Hazy Clear A 6473386886) COLOR (test code = Yellow Yellow 3523280359) PH (test code = 4.8-8.0 2059940505) SP GRAVITY (test code = 1.003-1.030 6133013632) GLU U QUAL (test code = Normal Normal 2871451260) BLOOD (test code = Negative Negative 6749398412) KETONES (test code = Negative Negative 8734895456) PROTEIN (test code = Negative Negative 2887-8) UROBILIN (test code = Normal Normal 7481108183) BILIRUBIN (test code = Negative Negative 6982509368) NITRITE (test code = Negative Negative 3863533230) LEUK NICHOLE (test code = Negative Negative 1969750474) RBC/HPF (test code = See_Comment [Autom ated message] 1259239549) The system [employer] generated this result transmitted ref erence range: 0 - 3 HP F. The reference range was not used to int erpret this result as normal/abnormal . WBC/HPF (test code = See_Comment [Autom ated message] 7657804177) The system [employer] generated this result transmitted ref erence range: 0 - 5 HP F. The reference range was not used to int erpret this result as normal/abnormal . BACTERIA (test code = Few Negative A 3203921062) AMORPHOUS (test code = Rare Rare HPF 6383932510) SQ EPITH (test code = HPF 9090887272) HYAL CAST (test code = See_Comment H [Aut omated message] 5961682590) The system [employer] generated this result transmitted ref erence range: <=2 LPF. The reference range was not used to int erpret this result as normal/abnormal . Lab Interpretation (test Abnormal code = 12630-0) [facility] with Tbetqtuctpxz2767-95-41 14:14:01 Test Item Value Reference Range Interpretation Comments WBC (test code = See_Comment [Automated message] 6690-2) The system [employer] generated this result transmitted ref erence range: 4.30 - 1 1.10 10*3/?L. The re ference range was not u sed to interpret this result as normal/abnor mal. RBC (test code = See_Comment [Automated message] 789-8) The system [employer] generated this result transmitted ref erence range: [...] RDW-SD (test code 40.1 fL 39.0-49.9 = 42796-8) RDW-CV (test code 12.3 % 12.0-15.5 = 788-0) PLT (test code = See_Comment [Automated message] 777-3) The system [employer] h generated this result transmitted ref erence range: 166 - 35 8 10*3/?L. The re ference range was not u sed to interpret this result as normal/abnor mal. MPV (test code = 9.7 fL 9.5-12.9 82829-4) NRBC/100 WBC (test See_Comment [Automat ed message] code = 1833426544) The syste m which generated this result transmitted ref erence range: 0.0 - 10 .0 /100 WBCs. The refer ence range was not u sed to interpret this result as normal/abnor mal. NRBC x10^3 (test <0.01 See_Comment [Automated message] code = 6807862017) The syste m which generated this result transmitted ref erence range: 10*3/?L. The reference range was not used to interpr et this result as normal/abnormal . GRAN MAT (NEUT) % 63.7 % (test code = 770-8) IMM GRAN % (test 0.40 % code = 8255452133) LYMPH % (test code 26.2 % = 736-9) MONO % (test code 7.6 % = 5905-5) EOS % (test code = 1.7 % 713-8) BASO % (test code 0.4 % = 706-2) GRAN MAT 3.45 10*3/uL 1.88-7.09 x10^3(ANC) (test code = 2881587873) IMM GRAN x10^3 <0.03 0.00-0.06 (test code = 9072091185) LYMPH x10^3 (test 1.42 10*3/uL 1.32-3.29 code = 731-0) MONO x10^3 (test 0.41 10*3/uL 0.33-0.92 code = 742-7) EOS x10^3 (test 0.09 10*3/uL 0.03-0.39 code = 711-2) BASO x10^3 (test <0.03 0.01-0.07 code = 704-7) [facility] CenterCOM. METABOLIC PANEL (50311)2020-10-04 23:43:59 Test Item Value Reference Range Interpretation Comments NA (test code = 138 mmol/L 135-145 0702533038) K (test code = 4.1 mmol/L 3.5-5.0 2993122658) CL (test code = 105 mmol/L 98-108 2829641873) CO2 TOTAL (test code = 26 mmol/L 23-31 9883707354) AGAP (test code = 2-16 6328870560) BUN (test code = 12 mg/dL 7-23 9742417573) GLUCOSE (test code = 124 mg/dL 70-110 H 4671105588) CREATININE (test code = 0.51 mg/dL 0.50-1.04 9733337524) TOTAL BILI (test code = 1.0 mg/dL 0.1-1.9 3953711439) CALCIUM (test code = 9.3 mg/dL 8.6-10.6 6126068311) T PROTEIN (test code = 7.9 g/dL 6.3-8.2 1993529547) ALBUMIN (test code = 4.1 g/dL 3.5-5.0 1872284669) ALK PHOS (test code = 619 U/L 34-122 H 1870038301) ALTv (test code = 99 U/L 5-35 H 1742-6) AST(SGOT) (test code = 97 U/L 13-40 H 2155785225) eGFR (test code = mL/min/1.73m2 7380414550) KIM (test code = KIM) Association of [...] tests). Lab Interpretation Abnormal (test code = 23109-6) [facility] CenterLIPASE2021-06-22 23:43:38 Test Item Value Reference Range Interpretation Comments LIPASE (test code = 3948890732) 182 U/L 0-220 Lab Interpretation (test code = Normal 69955-1) [facility] CenterCOVID[facility] (ID NOW RAPID TESTING)2020-10-04 23:39:59 Test Item Value Reference Range Interpretation Comments SARS-CoV-2 Rapid ID NOW Not Detected Not Detected (test code = 65942-9) KIM (test code = KIM) ID NOW COVID-19 Assay is an isothermal nucleic acid amplification test intended for the qualitative detection of nucleic acid from SARS-CoV-2 viral RNA in nasopharyngeal ([employer]) specimens. It is used under Emergency Use [...] indicated. Lab Interpretation Normal (test code = 47102-2) [facility] CenterURINALYSIS2021-06-22 23:36:26 Test Item Value Reference Range Interpretation Comments APPEARANCE (test code = Clear Clear 0333866347) COLOR (test code = Romelia Yellow A 2327251152) PH (test code = 4.8-8.0 9100742868) SP GRAVITY (test code = 1.003-1.030 5712272686) GLU U QUAL (test code = Normal Normal 3718524867) BLOOD (test code = Negative Negative 9757119806) KETONES (test code = Negative Negative 5214655239) PROTEIN (test code = Negative Negative 2887-8) UROBILIN (test code = 4.0 mg/dL Normal A 8113430445) BILIRUBIN (test code = Negative Negative 3718235956) NITRITE (test code = Negative Negative 7310507950) LEUK NICHOLE (test code = Negative Negative 2214267419) RBC/HPF (test code = See_Comment [Autom ated message] 4011744070) The system [employer] generated this result transmit gulshan reference range : 0 - 3 HPF. The refe rence range was not u sed to interpret th is result as normal/abnormal . WBC/HPF (test code = <1 See_Comment [Autom ated message] 9024701067) The system [employer] generated this result transmit gulshan reference range : 0 - 5 HPF. The refe rence range was not u sed to interpret th is result as normal/abnormal . BACTERIA (test code = Few Negative A 0655410603) MUCOUS (test code = Slight Negative LPF A 9339929536) SQ EPITH (test code = HPF 8075064292) Lab Interpretation (test Abnormal code = 16026-9) [facility] CenterCBC WITH [id number] 23:29:18 Test Item Value Reference Range Interpretation Comments WBC (test code = See_Comment L [Automated 7790-2) message] The sy stem which [...] RDW-SD (test code = 40.5 fL 39.0-49.9 62546-4) RDW-CV (test code = 12.2 % 12.0-15.5 788-0) PLT (test code = See_Comment [Automated 777-3) message] The sy stem which generated this result transmitted reference range : 166 - 358 10*3/ ?L. The reference r luca was not used to interpret this result as normal/abnormal . MPV (test code = 9.8 fL 9.5-12.9 74331-8) NRBC/100 WBC (test See_Comment [Automat ed code = [id number]) message] The system which generated this result transmitted reference range : 0.0 - 10.0 /100 WBCs. The refer ence range was not u sed to interpret th is result as normal/abnormal . NRBC x10^3 (test code <0.01 See_Comment [Auto mated = [id number]) message] The s ystem which generated this result transmitted reference range : 10*3/?L. The reference range was not used to interpret this result as normal/abnormal . GRAN MAT (NEUT) % 72.0 % (test code = 770-8) IMM GRAN % (test code 0.20 % = 8435971093) LYMPH % (test code = 19.8 % 736-9) MONO % (test code = 6.4 % 5905-5) EOS % (test code = 1.4 % 713-8) BASO % (test code = 0.2 % 706-2) GRAN MAT x10^3(ANC) 3.06 10*3/uL 1.88-7.09 (test code = 7135433845) IMM GRAN x10^3 (test <0.03 0.00-0.06 code = 8125813733) LYMPH x10^3 (test code 0.84 10*3/uL 1.32-3.29 L = 731-0) MONO x10^3 (test code 0.27 10*3/uL 0.33-0.92 L = 742-7) EOS x10^3 (test code = 0.06 10*3/uL 0.03-0.39 711-2) BASO x10^3 (test code <0.03 0.01-0.07 = 704-7) Lab Interpretation Abnormal (test code = 24731-1) [facility], ABDOMEN, [id number] 13:41:00Liver Protocol with ElastographyUnlisted Reason for Exam - Click Yes and Enter Reason Below->YesUnlisted Reason for Exam->History of liver fibrosis [facility] : 1960 Sex: FFINAL REPORT [...] Saeed Verified Date/Time: 09/08/2020 13:41:30 Reading Location: [facility] B1 [id number] Ortho Consult Reading Room PROTHROMBIN TIME/[id number] 04:34:00 Test Item Value Reference Range Interpretation Comments PROTIME (BEAKER) 11.7 seconds 11.9-14.2 L (test code = 759) INR (BEAKER) (test 0.88 See_Comment [Automat ed message] code = 370) The system [employer] generated this result transmitted ref erence range: <=5.90. The reference range was not used to int erpret this result as normal/abnormal . RECOMMENDED COUMADIN/WARFARIN INR THERAPY RANGESSTANDARD DOSE: 2.0 - 3.0 Includes: PROPHYLAXIS for venous thrombosis, systemic embolization; TREATMENT for venous thrombosis and/or pulmonary embolus.HIGH RISK: Target INR is 2.5-3.5 for patients with mechanical heart valves.BASIC METABOLIC [id number] 04:51:00 Test Item Value Reference Range Interpretation [...] S NOT APPLICABLE FOR DIALYSIS PATIEN TS. Rn Or Lvn ID - ALAINA GAMBINOPATIC FUNCTION [id number] 04:51:00 Test Item Value Reference Range Interpretation [...] code = 132 U/L 6-55 H 347) Rn Or Lvn ID - ALAINA [id number] 04:51:00 Test Item Value Reference Range Interpretation Comments LIPASE (BEAKER) (test code = 749) 115 U/L 8-78 H Rn Or Lvn ID - ALAINA WPROTHROMBIN TIME/[id number] 04:25:00 Test Item Value Reference Range Interpretation Comments PROTIME (BEAKER) 12.3 seconds 11.9-14.2 (test code = 759) INR (BEAKER) (test 0.94 See_Comment [Automat ed message] code = 370) The system [employer] generated this result transmitted ref erence range: <=5.90. The reference range was not used to int erpret this result as normal/abnormal . RECOMMENDED COUMADIN/WARFARIN INR THERAPY RANGESSTANDARD DOSE: 2.0 - 3.0 Includes: PROPHYLAXIS for venous thrombosis, systemic embolization; TREATMENT for venous thrombosis and/or pulmonary embolus.HIGH RISK: Target INR is 2.5-3.5 for patients with mechanical heart valves.AK, [id number] 08:00:00INTRA OP IMAGIN Reason for exam:->[facility]p [facility] : 1960 Sex: FFluoroscopic unit utilized for a procedure performed in the OR. No interpretation was requested. Refer to the operative report for findings. Refer to PACS for patient radiation dose information.SARS-COV2/RT-PCR ([facility])2020-09-06 06:35:00 Test Item Value Reference Range Interpretation Comments SARS-COV2/RT-PCR (test Negative Not Detected, Negative, code = 8604501) See external report for linked test SARS-COV-[address] [facility] DEVAN (test code = 3469655) Negative result for this test determines that [...] the Simms SARS-CoV-2 assay.Fact Sheet for Healthcare Providers:https://www.[employer] Apps/bertha/RT_SAR V-LeR-4_VES_Mzbi_Ifrpg_61-185331.pdfFact Sheet for Healthcare Patients:https://www.[employer].simms/s al/HW_HRQL-PpN-5_Zasmdpm_Qxwx_Czctk_YM_79-602809J9.pdfPerforming Laboratory:[facility] [place] [address] [place] [address] PROTHROMBIN TIME/[id number] 04:41:00 Test Item Value Reference Range Interpretation Comments PROTIME (BEAKER) 12.4 seconds 11.9-14.2 (test code = 759) INR (BEAKER) (test 0.95 See_Comment [Automat ed message] code = 370) The system [employer] generated this result transmitted ref erence range: <=5.90. The reference range was not used to int erpret this result as normal/abnormal . RECOMMENDED COUMADIN/WARFARIN INR THERAPY RANGESSTANDARD DOSE: 2.0 - 3.0 Includes: PROPHYLAXIS for venous thrombosis, systemic embolization; TREATMENT for venous thrombosis and/or pulmonary embolus.HIGH RISK: Target INR is 2.5-3.5 for patients with mechanical heart valves.[id number] 14:40:00 Test Item Value Reference Range Interpretation Comments MAGNESIUM (BEAKER) 1.9 mg/dL 1.6-2.6 Specimen slightly (test code = 627) hemolyzed Rn Or Lvn [facility] FBASIC METABOLIC [id number] 14:40:00 Test Item Value Reference Range Interpretation [...] S NOT APPLICABLE FOR DIALYSIS PATIEN TS. Rn Or Lvn ID Ryan NEGRON FHEPATIC FUNCTION [id number] 14:40:00 Test Item Value Reference Range Interpretation [...] Specimen slightly (test code = 347) hemolyzed Rn Or Lvn ID Ryan NEGRON [id number] 14:40:00 Test Item Value Reference Range Interpretation Comments LIPASE (BEAKER) (test code = 749) 446 U/L 8-78 H Rn Or Lvn ID Ryan NEGRON FCBC W/PLT COUNT & AUTO [id number] 14:14:00 Test Item Value Reference Range Interpretation [...] PERCENT (BEAKER) (test code = 2801) [place], [id number] 08:35:00Reason for exam:->abnormal imaging [facility] : 1960 Sex: FFluoroscopic unit utilized for a procedure performed in the OR. No interpretation was requested. Refer to the operative report for findings. Refer to PACS for patient radiation dose information.[id number] 06:42:00 Test Item Value Reference Range Interpretation Comments MAGNESIUM (BEAKER) (test code = 1.8 mg/dL 1.6-2.6 627) Rn Or Lvn ID - [id number] 06:42:00 Test Item Value Reference Range Interpretation Comments PHOSPHORUS (BEAKER) (test code = 3.4 mg/dL 2.3-4.7 604) Rn Or Lvn ID - EDASIHEPATIC FUNCTION [id number] 06:42:00 Test Item Value Reference Range Interpretation [...] code = 89 U/L 6-55 H 347) Rn Or Lvn ID - EDASIBASIC METABOLIC [id number] 06:42:00 Test Item Value Reference Range Interpretation [...] S NOT APPLICABLE FOR DIALYSIS PATIEN TS. Rn Or Lvn ID - EDASICBC W/PLT COUNT & AUTO [id number] 05:27:00 Test Item Value Reference Range Interpretation [...] PERCENT (BEAKER) (test code = 2801) SARS-COV2/RT-PCR ([facility])2020-08-26 12:43:00 Test Item Value Reference Range Interpretation Comments SARS-COV2/RT-PCR (test Negative Not Detected, Negative, code = 6375417) See external report for linked test SARS-COV-2 PERFORMING LAB [facility] (test code = 5464066) Negative result for this test determines that [...] 564(g) of the Act.Fact Sheet for Healthcare Pro viders:https://www.[employer]/sites/default/files/product/documents/Fact_Sheet_H T_Jjczglqgc_Hefi_YIGP-UuT-1.pdfFact Sheet for Healthcare Patients:https://www.[employer]/sites/default/files/product/docum ents/Ovtn_Fsaoa_Jzriioko_Adec_IQDR-YrL-8.pdfPerforming Laboratory:[place] [address] [place], [place] [address]UKQIF METABOLIC PANEL 2020-08-26 06:19:00 Test Item Value [...] S NOT APPLICABLE FOR DIALYSIS PATIEN TS. Rn Or Lvn ID - PIAYA [id number] 06:19:00 Test Item Value Reference Range Interpretation Comments MAGNESIUM (BEAKER) (test code = 1.8 mg/dL 1.6-2.6 627) Rn Or Lvn ID - PISURJIT LHEPATIC FUNCTION [id number] 06:19:00 Test Item Value Reference Range Interpretation [...] code = 82 U/L 6-55 H 347) Rn Or Lvn ID - PISURJIT LCBC W/PLT COUNT & AUTO [id number] 05:37:00 Test Item Value Reference Range Interpretation [...] Radiology diagnostic report.[facility] CenterFL TIME OR (NON-REPORTABLE)2020-07-18 13:25:02These images do not require a Radiology diagnostic report.[facility] GLUCOSE (AUTOMATED) 2020-07-18 12:07:46 Test Item Value Reference Range Interpretation Comments POCT GLU (test code = 7872391743) 98 mg/dL 70-110 Lab Interpretation (test code = Normal 34519-8) [facility] GLUCOSE (AUTOMATED)2020-07-18 12:07:46 Test Item Value Reference Range Interpretation Comments POCT GLU (test code = 4725737472) 98 mg/dL 70-110 Lab Interpretation (test code = Normal 13549-4) [facility] ABDOMEN PELVIS W [id number] 01:39:22 1. ?No acute obstruction or inflammation [...] There is abundant stool throughoutthe colon.RL: [facility] [facility]TRM[facility]ER[facility]ENCYNIN [id number] 00:55:45 Test Item Value Reference Range Interpretation Comments TROPONIN I (test 0.002 ng/mL See_Comment [Automated code = 2379217239) message] The system which generated this result [...] ? Lab Interpretation Normal (test code = 85682-7) [facility] CenterCOVID-19 (ID NOW RAPID TESTING)2020-07-08 00:47:04 Test Item Value Reference Range Interpretation Comments SARS-CoV-2 Rapid ID NOW Not Detected Not Detected (test code = 44531-0) KIM (test code = KIM) ID NOW COVID-19 Assay is an isothermal nucleic acid amplification test intended for the qualitative detection of nucleic acid from SARS-CoV-2 viral RNA in nasopharyngeal (IND[employer]) specimens. It is used under Emergency Use [...] indicated. Lab Interpretation Normal (test code = 12999-6) [facility] CenterMAGNESIUM2021-03-26 00:45:06 Test Item Value Reference Range Interpretation Comments MAGNESIUM (test code = 4538582946) 2.0 mg/dL 1.7-2.4 Lab Interpretation (test code = Normal 02813-6) [facility] CenterCOMP. METABOLIC PANEL (91205)2020-07-08 00:44:41 Test Item Value Reference Range Interpretation Comments NA (test code = 139 mmol/L 135-145 4883549963) K (test code = 4.4 mmol/L 3.5-5.0 4504319977) CL (test code = 108 mmol/L 98-108 0604127632) CO2 TOTAL (test code = 23 mmol/L 23-31 5471105713) AGAP (test code = 2-16 6816163357) BUN (test code = 22 mg/dL 7-23 1836772579) GLUCOSE (test code = 107 mg/dL 70-110 3820333660) CREATININE (test code = 0.62 mg/dL 0.50-1.04 3801064119) TOTAL BILI (test code = 0.9 mg/dL 0.1-1.2 5021270945) CALCIUM (test code = 10.0 mg/dL 8.6-10.6 5138086354) T PROTEIN (test code = 8.3 g/dL 6.3-8.2 H 1332882105) ALBUMIN (test code = 4.8 g/dL 3.5-5.0 8158609552) ALK PHOS (test code = 1085 U/L 34-122 H 6231188341) ALTv (test code = 383 U/L 5-35 H 1742-6) AST(SGOT) (test code = 217 U/L 13-40 H 4253572871) eGFR Calculation mL/min/1.73m2 (Non-) (test code = 6153571868) eGFR Calculation mL/min/1.73m2 () (test code = 5750511668) KIM (test code = KIM) Association of [...] tests). Lab Interpretation Abnormal (test code = 47289-6) [facility] CenterLIPASE2021-03-26 00:44:41 Test Item Value Reference Range Interpretation Comments LIPASE (test code = 9161120528) 131 U/L 0-220 Lab Interpretation (test code = Normal 14650-5) [facility] CenterURINALYSIS2021-03-26 00:38:06 Test Item Value Reference Range Interpretation Comments APPEARANCE (test code = Clear Clear 5836642750) COLOR (test code = Yellow Yellow 2712842376) PH (test code = 4.8-8.0 3641441793) SP GRAVITY (test code = 1.003-1.030 1392147884) GLU U QUAL (test code = Normal Normal 5648309739) BLOOD (test code = Negative Negative 2493727097) KETONES (test code = Negative Negative 6078305610) PROTEIN (test code = Negative Negative 2887-8) UROBILIN (test code = 4.0 mg/dL Normal A 0827136746) BILIRUBIN (test code = Negative Negative 8092463591) NITRITE (test code = Negative Negative 8218048467) LEUK NICHOLE (test code = Negative Negative 8115958225) RBC/HPF (test code = <1 See_Comment [Autom ated message] 5854212966) The system [employer] generated this result transmit gulshan reference range : 0 - 3 HPF. The refe rence range was not u sed to interpret th is result as normal/abnormal . WBC/HPF (test code = See_Comment [Autom ated message] 5623346691) The system [employer] generated this result transmit gulshan reference range : 0 - 5 HPF. The refe rence range was not u sed to interpret th is result as normal/abnormal . BACTERIA (test code = Few Negative A 7358584406) MUCOUS (test code = Slight Negative LPF A 3686223429) SQ EPITH (test code = HPF 9033921617) Lab Interpretation (test Abnormal code = 80732-7) [facility] WITH [id number] 00:32:00 Test Item Value Reference Range Interpretation [...] RDW-SD (test code = 48.1 fL 39.0-49.9 95864-0) RDW-CV (test code = 14.5 % 12.0-15.5 788-0) PLT (test code = See_Comment [Automated 777-3) message] The sy stem which generated this result transmitted reference range : 166 - 358 10*3/ ?L. The reference r luca was not used to interpret this result as normal/abnormal . MPV (test code = 9.5 fL 9.5-12.9 67311-5) NRBC/100 WBC (test See_Comment [Automat ed code = 5534908763) message] The system which generated this result transmitted reference range : 0.0 - 10.0 /100 WBCs. The refer ence range was not u sed to interpret th is result as normal/abnormal . NRBC x10^3 (test code <0.01 See_Comment [Auto mated = 4004352087) message] The s ystem which generated this result transmitted reference range : 10*3/?L. The reference range was not used to interpret this result as normal/abnormal . GRAN MAT (NEUT) % 78.2 % (test code = 770-8) IMM GRAN % (test code 0.60 % = 3991712344) LYMPH % (test code = 11.9 % 736-9) MONO % (test code = 8.3 % 5905-5) EOS % (test code = 0.5 % 713-8) BASO % (test code = 0.5 % 706-2) GRAN MAT x10^3(ANC) 7.55 10*3/uL 1.88-7.09 H (test code = 4541765612) IMM GRAN x10^3 (test 0.06 10*3/uL 0.00-0.06 code = 3007569308) LYMPH x10^3 (test code 1.15 10*3/uL 1.32-3.29 L = 731-0) MONO x10^3 (test code 0.80 10*3/uL 0.33-0.92 = 742-7) EOS x10^3 (test code = 0.05 10*3/uL 0.03-0.39 711-2) BASO x10^3 (test code 0.05 10*3/uL 0.01-0.07 = 704-7) Lab Interpretation Abnormal (test code = 35909-6) [facility] TIME OR (NON-REPORTABLE)2020-07-04 13:40:03 These images do not require a Radiology diagnostic report.[facility] TIME OR (NON-REPORTABLE)2020-06-20 14:58:12These images do not require a Radiology diagnostic report.[facility] Metabolic Panel (NA, K, CL, CO2, GLUCOSE, BUN, CREATININE, CA)2020-05-06 23:29:00 Test Item Value Reference Range Interpretation Comments NA (test code = 138 mmol/L 135-145 8156431614) K (test code = 4.4 mmol/L 3.5-5 0967520832) CL (test code = 108 mmol/L 98-108 8283593812) CO2 TOTAL (test code = 20 mmol/L 23-31 L 9379369302) AGAP (test code = 2-16 8626200530) BUN (test code = 18 mg/dL 7-23 3239174650) GLUCOSE (test code = 90 mg/dL 70-110 3650403433) CREATININE (test code = 0.68 mg/dL 0.5-1.04 9341500315) CALCIUM (test code = 9.1 mg/dL 8.6-10.6 2966653828) eGFR Calculation mL/min/1.73m2 (Non-) (test code = 6154586341) eGFR Calculation mL/min/1.73m2 () (test code = 5482180546) KIM (test code = KIM) Association of [...] tests). Lab Interpretation Abnormal (test code = 07053-8) [facility] CenterHepatic Function Panel (ALB, T.PRO, BILI T, BU/BC, ALT, AST, ALK PHOS)2020-05-06 23:28:00 Test Item Value Reference Range Interpretation Comments TOTAL BILI (test code = 7638916944) 1.1 mg/dL 0.1-1.1 BILI UNCON (test code = 3158218587) 0.4 mg/dL 0.1-1.1 BILI CONJ (test code = 1770356835) 0.0 mg/dL 0-0.3 T PROTEIN (test code = 1209048464) 7.9 g/dL 6.3-8.2 ALBUMIN (test code = 2742523928) 4.4 g/dL 3.5-5 ALK PHOS (test code = 3855640929) 984 U/L 34-122 H ALTv (test code = 1742-6) 218 U/L 5-35 H AST(SGOT) (test code = 5096280339) 133 U/L 13-40 H Lab Interpretation (test code = Abnormal 09514-8) [facility] CenterTroponin [id number] 22:19:00 Test Item Value Reference Range Interpretation Comments TROPONIN I (test 0.021 ng/mL See_Comment [Automated code = 1659506747) message] The system which generated this result [...] ? Lab Interpretation Normal (test code = 83829-6) [facility] CenterCOVID-19 (ID NOW RAPID TESTING)2020-05-06 22:13:00 Test Item Value Reference Range Interpretation Comments SARS-CoV-2 Rapid ID NOW Not Detected Not Detected (test code = 41280-2) KIM (test code = KIM) ID NOW COVID-19 Assay is an isothermal nucleic acid amplification test intended for the qualitative detection of nucleic acid from SARS-CoV-2 viral RNA in nasopharyngeal ([employer]) specimens. It is used under Emergency Use [...] indicated. Lab Interpretation Normal (test code = 82260-8) [facility] CenterUrinalysis2021-01-22 22:09:00 Test Item Value Reference Range Interpretation Comments APPEARANCE (test code = Clear Clear 6726883827) COLOR (test code = Yellow Yellow 0641873138) PH (test code = 4.8-8.0 2611302740) SP GRAVITY (test code = 1.003-1.030 5911171980) GLU U QUAL (test code = Normal Normal 7058758466) BLOOD (test code = Negative Negative INTERFERE NCE FROM 1806303994) ASCORBIC ACID M AY CAUSE FALSE NEG ATIVE RESULT KETONES (test code = Negative Negative 0760091715) PROTEIN (test code = Negative Negative 2887-8) UROBILIN (test code = 2.0 mg/dL Normal A 1681344909) BILIRUBIN (test code = Negative Negative 7928253557) NITRITE (test code = Negative Negative 9515835955) LEUK NICHOLE (test code = Negative Negative 6466405139) RBC/HPF (test code = See_Comment [Autom ated message] 8401971810) The system [employer] generated this result transmitted ref erence range: 0 - 3 HP F. The reference range was not used to int erpret this result as normal/abnormal . WBC/HPF (test code = See_Comment [Autom ated message] 5156390118) The system [employer] generated this result transmitted ref erence range: 0 - 5 HP F. The reference range was not used to int erpret this result as normal/abnormal . BACTERIA (test code = Few Negative A 0671012721) SQ EPITH (test code = HPF 7821852768) HYAL CAST (test code = See_Comment [Aut omated message] 2892304870) The system [employer] generated this result transmitted ref erence range: <=2 LPF. The reference range was not used to int erpret this result as normal/abnormal . Lab Interpretation Abnormal (test code = 96435-3) [facility] CenterLipase [id number] 22:08:00 Test Item Value Reference Range Interpretation Comments LIPASE (test code = 1697097678) 114 U/L 0-220 Lab Interpretation (test code = Normal 13598-2) [facility] CenterCBC with [id number] 22:02:00 Test Item Value Reference Range Interpretation [...] RDW-SD (test code = 41.0 fL 39-49.9 47992-1) RDW-CV (test code = 12.4 % 12-15.5 788-0) PLT (test code = See_Comment [Automated 777-3) message] The sy stem which generated this result transmitted reference range : 166 - 358 10*3/ ?L. The reference r luca was not used to interpret this result as normal/abnormal . MPV (test code = 10.5 fL 9.5-12.9 00437-5) NRBC/100 WBC (test See_Comment [Automat ed code = 2108094835) message] The system which generated this result transmitted reference range : 0.0 - 10.0 /100 WBCs. The refer ence range was not u sed to interpret th is result as normal/abnormal . NRBC x10^3 (test code <0.01 See_Comment [Auto mated = 8619838565) message] The s ystem which generated this result transmitted reference range : 10*3/?L. The reference range was not used to interpret this result as normal/abnormal . GRAN MAT (NEUT) % 71.8 % (test code = 770-8) IMM GRAN % (test code 0.10 % = 2053630691) LYMPH % (test code = 19.0 % 736-9) MONO % (test code = 6.2 % 5905-5) EOS % (test code = 2.2 % 713-8) BASO % (test code = 0.7 % 706-2) GRAN MAT x10^3(ANC) 4.83 10*3/uL 1.88-7.09 (test code = 9687350274) IMM GRAN x10^3 (test <0.03 0-0.06 code = 4799948362) LYMPH x10^3 (test code 1.28 10*3/uL 1.32-3.29 L = 731-0) MONO x10^3 (test code 0.42 10*3/uL 0.33-0.92 = 742-7) EOS x10^3 (test code = 0.15 10*3/uL 0.03-0.39 711-2) BASO x10^3 (test code 0.05 10*3/uL 0.01-0.07 = 704-7) Lab Interpretation Abnormal (test code = 40738-0) [facility] 1 [id number] 21:48:28Findings and Impression: ?Subcentimeter calcified granuloma projecting [...] is normal to mildly enlarged. No acuteosseous abnormalities.[facility] CenterUrinalysis2020-12-12 05:27:00 Test Item Value Reference Range Interpretation Comments APPEARANCE (test code Slightly Cloudy Clear A = 8159724787) COLOR (test code = Yellow Yellow 6982172015) PH (test code = 4.8-8.0 6881000614) SP GRAVITY (test code >=1.030 1.003-1.030 = 1144553484) GLU U QUAL (test code Negative Negative = 5548555347) BLOOD (test code = Trace Negative A 5515774812) KETONES (test code = Negative Negative 8801428414) PROTEIN (test code = Negative Negative 2887-8) UROBILIN (test code = 1.0 mg/dL See_Comment [Auto mated 7696197620) message] The system which generated this result transmit gulshan reference range : 0-1.0 mg/dL. Th e reference range was not used to interpret this result as normal/abnormal . BILIRUBIN (test code Small Negative A = 0590499893) NITRITE (test code = Negative Negative 5476934290) LEUK NICHOLE (test code Trace Negative A = 7116809459) RBC/HPF (test code = See_Comment [Autom ated 0003165706) message] The system which generated this result transmit gulshan reference range : 0 - 3 HPF. The reference range was not used to interpret this result as normal/abnormal . WBC/HPF (test code = See_Comment [Autom ated 5018084842) message] The system which generated this result transmit gulshan reference range : 0 - 5 HPF. The reference range was not used to interpret this result as normal/abnormal . BACTERIA (test code = Few Negative A 8332023533) AMORPHOUS (test code Few Rare HPF A = 6523633005) SQ EPITH (test code = HPF 3384874977) Lab Interpretation Abnormal (test code = 31980-5) [facility] CenterCOVID-[facility] (ID NOW RAPID TESTING)2020-03-26 04:39:00 Test Item Value Reference Range Interpretation Comments SARS-CoV-2 Rapid ID NOW Not Detected Not Detected (test code = 44470-1) KIM (test code = KIM) ID NOW COVID-19 Assay is an isothermal nucleic acid amplification test intended for the qualitative detection of nucleic acid from SARS-CoV-2 viral RNA in nasopharyngeal ([employer]) specimens. It is used under Emergency Use [...] indicated. Lab Interpretation Normal (test code = 30877-2) [facility] CenterComplete Metabolic [id number] 04:12:00 Test Item Value Reference Range Interpretation Comments NA (test code = 139 mmol/L 135-145 8002815317) K (test code = 4.5 mmol/L 3.5-5 9818002435) CL (test code = 108 mmol/L 98-108 2887084363) CO2 TOTAL (test code = 22 mmol/L 23-31 L 9989757851) AGAP (test code = 2-16 9383268415) BUN (test code = 17 mg/dL 7-23 3846851444) GLUCOSE (test code = 102 mg/dL 70-110 1853846385) CREATININE (test code = 0.96 mg/dL 0.5-1.04 6176303392) TOTAL BILI (test code = 0.7 mg/dL 0.1-1.8 3128142307) CALCIUM (test code = 9.3 mg/dL 8.6-10.6 0001815382) T PROTEIN (test code = 7.3 g/dL 6.3-8.2 7636724662) ALBUMIN (test code = 4.1 g/dL 3.5-5 4292506132) ALK PHOS (test code = 675 U/L 34-122 H 0077029621) ALTv (test code = 115 U/L 5-35 H 1742-6) AST(SGOT) (test code = 100 U/L 13-40 H 4865594817) eGFR Calculation mL/min/1.73m2 (Non-) (test code = 9108033559) eGFR Calculation mL/min/1.73m2 () (test code = 6881629246) KIM (test code = KIM) Association of [...] tests). Lab Interpretation Abnormal (test code = 56004-9) [facility] CenterLipase, [id number] 04:11:00 Test Item Value Reference Range Interpretation Comments LIPASE (test code = 1759135050) 171 U/L 0-220 Lab Interpretation (test code = Normal 03878-7) [facility] CenterCB with Qhfsvbntmjqo3337-61-52 03:56:00 Test Item Value Reference Range Interpretation Comments WBC (test code = See_Comment [Automated 4101-2) message] The sy stem which generated this result transmitted reference range : 4.30 - 11.10 10*3/?L. The reference range was not used to interpret this result as normal/abnormal . RBC (test code = See_Comment L [Automated 193-9) message] The sy stem which generated this [...] RDW-SD (test code = 47.5 fL 39-49.9 86384-6) RDW-CV (test code = 13.3 % 12-15.5 788-0) PLT (test code = See_Comment [Automated 777-3) message] The sy stem which generated this result transmitted reference range : 166 - 358 10*3/ ?L. The reference r luca was not used to interpret this result as normal/abnormal . MPV (test code = 9.4 fL 9.5-12.9 L 84330-7) NRBC/100 WBC (test See_Comment [Automat ed code = 5773008516) message] The system which generated this result transmitted reference range : 0.0 - 10.0 /100 WBCs. The refer ence range was not u sed to interpret th is result as normal/abnormal . NRBC x10^3 (test code <0.01 See_Comment [Auto mated = 7193396767) message] The s ystem which generated this result transmitted reference range : 10*3/?L. The reference range was not used to interpret this result as normal/abnormal . GRAN MAT (NEUT) % 67.1 % (test code = 770-8) IMM GRAN % (test code 0.70 % = 5521516298) LYMPH % (test code = 22.2 % 736-9) MONO % (test code = 6.4 % 5905-5) EOS % (test code = 2.9 % 713-8) BASO % (test code = 0.7 % 706-2) GRAN MAT x10^3(ANC) 3.69 10*3/uL 1.88-7.09 (test code = 3726143069) IMM GRAN x10^3 (test 0.04 10*3/uL 0-0.06 code = 6408936920) LYMPH x10^3 (test code 1.22 10*3/uL 1.32-3.29 L = 731-0) MONO x10^3 (test code 0.35 10*3/uL 0.33-0.92 = 742-7) EOS x10^3 (test code = 0.16 10*3/uL 0.03-0.39 711-2) BASO x10^3 (test code 0.04 10*3/uL 0.01-0.07 = 704-7) Lab Interpretation Abnormal (test code = 34733-2) [facility] B[facility] WO [id number] 17:24:06 Impression: 1. ?Normal MRI brain. 2. [...] do not demonstrate any evidence of intracranialhemorrhage. [facility], Radiant Results Inft User - 02/08/2020 12:25 [...] MRI brain.2. Mastoid effusions.3. Right petrous apex effusion.[facility] CULTURE [id number] 21:10:00 Test Item Value Reference Range Interpretation Comments Blood Culture-Aerobic Culture positive. No growth AA P revious (test code = 91445-2) See Blood Culture p reliminary Workup for verified result additional was Culture In information. Progress on 02/02/2020 at 1901 CDT Blood No organisms No growth Previous Culture-Anaerobic isolated preliminar y (test code = 34714-2) verifi ed result was Culture In Progress on 02/03/2020 at 1314 CDT Lab Interpretation Abnormal (test code = 47164-5) [facility] CULTURE [id number] 21:01:00 Test Item Value Reference Range Interpretation Comments Blood Culture-Aerobic No organisms No growth Previo us (test code = 85000-5) isolated prelim inary verified result was Culture [...] Culture-Anaerobic isolated preliminar y (test code = 45711-9) verifi ed result was Culture In Progress [...] CDT Lab Interpretation Normal (test code = 74186-5) [facility] (NA, K, CL, CO2, GLUCOSE, BUN, CREATININE, CA)2020-02-07 09:09:00 Test Item Value Reference Range Interpretation Comments NA (test code = 136 mmol/L 135-145 3168625543) K (test code = 4.3 mmol/L 3.5-5 Slight hemoly sis 9657997136) CL (test code = 104 mmol/L 98-108 7742390296) CO2 TOTAL (test 26 mmol/L 23-31 code = 4560925897) AGAP (test code = 2-16 3357462892) BUN (test code = 12 mg/dL 7-23 Slight hemo lysis 3194984227) GLUCOSE (test code 98 mg/dL 70-110 = 1583113423) CREATININE (test 0.50 mg/dL 0.5-1.04 code = 0864968886) CALCIUM (test code 8.9 mg/dL 8.6-10.6 = 0827959078) eGFR Calculation mL/min/1.73m2 (Non-) (test code = 5468054212) eGFR Calculation mL/min/1.73m2 () (test code = 2501308949) KIM (test code = Association of KIM) [...] urine or abnormalities in imaging tests). [facility] WITH [id number] 08:58:00 Test Item Value Reference Range Interpretation [...] RDW-SD (test code = 48.5 fL 39-49.9 40226-8) RDW-CV (test code = 13.9 % 12-15.5 788-0) PLT (test code = See_Comment [Automated 777-3) message] The sy stem which generated this result transmitted reference range : 166 - 358 10*3/ ?L. The reference r luca was not used to interpret this result as normal/abnormal . MPV (test code = 9.1 fL 9.5-12.9 L 87904-2) NRBC/100 WBC (test See_Comment [Automat ed code = 7603873869) message] The system which generated this result transmitted reference range : 0.0 - 10.0 /100 WBCs. The refer ence range was not u sed to interpret th is result as normal/abnormal . NRBC x10^3 (test code <0.01 See_Comment [Auto mated = 3662705366) message] The s ystem which generated this result transmitted reference range : 10*3/?L. The reference range was not used to interpret this result as normal/abnormal . GRAN MAT (NEUT) % 69.8 % (test code = 770-8) IMM GRAN % (test code 0.40 % = 4460197610) LYMPH % (test code = 21.9 % 736-9) MONO % (test code = 6.7 % 5905-5) EOS % (test code = 0.8 % 713-8) BASO % (test code = 0.4 % 706-2) GRAN MAT x10^3(ANC) 3.66 10*3/uL 1.88-7.09 (test code = 4499997429) IMM GRAN x10^3 (test <0.03 0-0.06 code = 5117048196) LYMPH x10^3 (test code 1.15 10*3/uL 1.32-3.29 L = 731-0) MONO x10^3 (test code 0.35 10*3/uL 0.33-0.92 = 742-7) EOS x10^3 (test code = 0.04 10*3/uL 0.03-0.39 711-2) BASO x10^3 (test code <0.03 0.01-0.07 = 704-7) Lab Interpretation Abnormal (test code = 04055-6) [facility] MUSCLE AB,IGG [id number] 15:17:00 Test Item Value Reference Range Interpretation Comments F-ACTIN (SMOOTH See_Comment If F-Actin (Smooth Muscle) MUSCLE) AB, Antibody, IgG i s negative, IGG(BEAKER) (test the Smooth Muscle Antibody code = 49229-6) titer by IFA is not performed.REFER ENCE [...] for A IH is strong.Performe d By: [employer] [address] [place], [place] [address]Gdaiebbefp Director: Praveena Mantilla MD [Automated mess age] The system which ge nerated this result transmit gulshan reference range : 0 - 19 Units. The refe rence range was not used to interpret this result as normal/abnormal . [facility] CenterMITOCHONDRIAL M2 AB, [id number] 00:28:00 Test Item Value Reference Range Interpretation Comments AMA (test code = See_Comment H REFERENCE I NTERVAL: 54597-9) Mitochondrial ( M2) Antibody, IgG ? ?20.0 [...] does not rule out PBC.Perform ed By: [employer] [address] [address] [place], [place] [address]Ypkrrzzbvk Director: Praveena Mantilla MD [Aut omated message] The sy stem which generated this result transmit gulshan reference range : 0.0 - 24.9 Units. The reference range was not used to int erpret this result as normal/abnormal . Lab Interpretation Abnormal (test code = 52714-7) [facility] CULTURE [id number] 17:01:00 Test Item Value Reference Range Interpretation Comments Blood Culture-Aerobic No organisms No growth Previo us (test code = 20748-8) isolated prelim inary verified result was Culture [...] Culture-Anaerobic isolated preliminar y (test code = 55029-9) verifi ed result was Culture In Progress [...] CDT Lab Interpretation Normal (test code = 02954-4) [facility] CULTURE [id number] 14:01:00 Test Item Value Reference Range Interpretation Comments Blood Culture Coagulase negative Addition al Workup (test Staphylococcus work-up perfo rmed code = 600-7) only per reque st. Culture plate(s ) will be saved until this date : - 02/10/20 Gram stain Isolated from aerobic (test code = bottle Gram positive 664-3) cocci [facility] CenterCOMP[facility] METABOLIC PANEL (25989)2020-02-05 09:59:00 Test Item Value Reference Range Interpretation Comments NA (test code = 140 mmol/L 135-145 6426655277) K (test code = 3.7 mmol/L 3.5-5 4082675199) CL (test code = 107 mmol/L 98-108 5273785754) CO2 TOTAL (test code = 25 mmol/L 23-31 9596579005) AGAP (test code = 2-16 1739402257) BUN (test code = 11 mg/dL 7-23 5452888186) GLUCOSE (test code = 90 mg/dL 70-110 5791793980) CREATININE (test code = 0.58 mg/dL 0.5-1.04 7959396711) TOTAL BILI (test code = 0.9 mg/dL 0.1-1.1 3156449886) CALCIUM (test code = 8.9 mg/dL 8.6-10.6 4373995664) T PROTEIN (test code = 6.7 g/dL 6.3-8.2 3245964951) ALBUMIN (test code = 3.5 g/dL 3.5-5 5024426160) ALK PHOS (test code = 518 U/L 34-122 H 0990803752) ALTv (test code = 84 U/L 5-35 H 1742-6) AST(SGOT) (test code = 49 U/L 13-40 H 7350356911) eGFR Calculation mL/min/1.73m2 (Non-) (test code = 3439651619) eGFR Calculation mL/min/1.73m2 () (test code = 4398363299) KIM (test code = KIM) Association of [...] tests). Lab Interpretation Abnormal (test code = 13372-0) [facility] WITH [id number] 09:43:00 Test Item Value Reference Range Interpretation [...] RDW-SD (test code = 48.1 fL 39-49.9 26924-6) RDW-CV (test code = 13.4 % 12-15.5 788-0) PLT (test code = See_Comment [Automated 777-3) message] The sy stem which generated this result transmitted reference range : 166 - 358 10*3/ ?L. The reference r luca was not used to interpret this result as normal/abnormal . MPV (test code = 8.7 fL 9.5-12.9 L 99110-3) NRBC/100 WBC (test See_Comment [Automat ed code = 6965908592) message] The system which generated this result transmitted reference range : 0.0 - 10.0 /100 WBCs. The refer ence range was not u sed to interpret th is result as normal/abnormal . NRBC x10^3 (test code <0.01 See_Comment [Auto mated = 7622067797) message] The s ystem which generated this result transmitted reference range : 10*3/?L. The reference range was not used to interpret this result as normal/abnormal . GRAN MAT (NEUT) % 68.3 % (test code = 770-8) IMM GRAN % (test code 0.20 % = 9570476495) LYMPH % (test code = 24.2 % 736-9) MONO % (test code = 5.5 % 5905-5) EOS % (test code = 1.4 % 713-8) BASO % (test code = 0.4 % 706-2) GRAN MAT x10^3(ANC) 3.47 10*3/uL 1.88-7.09 (test code = 2675006910) IMM GRAN x10^3 (test <0.03 0-0.06 code = 4631825840) LYMPH x10^3 (test code 1.23 10*3/uL 1.32-3.29 L = 731-0) MONO x10^3 (test code 0.28 10*3/uL 0.33-0.92 L = 742-7) EOS x10^3 (test code = 0.07 10*3/uL 0.03-0.39 711-2) BASO x10^3 (test code <0.03 0.01-0.07 = 704-7) Lab Interpretation Abnormal (test code = 04902-6) [facility] CERVICAL SPINE WO [id number] 05:59:37 Mild degenerative changes most pronounced at C5-C6 and C6-C7 as above. RL: 460 AFC: [id number] Ordering physician: GET AGUILLON INDICATION: Neck pain, [...] at C5-C6 and C6-C7 as above.RL: 460AFC: [id number] signed by Minal Vaugahn MD, PhD at 02/05/2020 12:59 AMUnSaint [facility] CenterOCCULT (GUAIAC) [id number] 14:40:00 Test Item Value Reference Range Interpretation Comments Occult (guaiac) Blood (test code = Negative Negative 2335-8) Lab Interpretation (test code = Normal 66337-4) [facility] CenterN-TERMINAL [id number] 10:32:00 Test Item Value Reference Range Interpretation Comments NT-proBNP (test code 403 pg/mL See_Comment H [Autom ated = 7909273387) message] The system which generated this result transmitted reference range : <=125. The reference range was not used to interpret this result as normal/abnormal . KIM (test code = KIM) Biotin has been reported to cause a negative bias, interpret results relative to patient's use of biotin. Lab Interpretation Abnormal (test code = 04332-1) [facility]. METABOLIC PANEL (70957)2020-02-04 10:24:00 Test Item Value Reference Range Interpretation Comments NA (test code = 138 mmol/L 135-145 0165646599) K (test code = 3.7 mmol/L 3.5-5 9448551221) CL (test code = 106 mmol/L 98-108 9756881763) CO2 TOTAL (test code = 27 mmol/L 23-31 7856419713) AGAP (test code = 2-16 5676237127) BUN (test code = 9 mg/dL 7-23 4239444820) GLUCOSE (test code = 105 mg/dL 70-110 3104063280) CREATININE (test code = 0.59 mg/dL 0.5-1.04 8019387076) TOTAL BILI (test code = 0.9 mg/dL 0.1-1.9 9810142917) CALCIUM (test code = 9.0 mg/dL 8.6-10.6 9374451837) T PROTEIN (test code = 6.4 g/dL 6.3-8.2 6101308594) ALBUMIN (test code = 3.2 g/dL 3.5-5 L 3409125253) ALK PHOS (test code = 486 U/L 34-122 H 6725821447) ALTv (test code = 91 U/L 5-35 H 1742-6) AST(SGOT) (test code = 41 U/L 13-40 H 3197290259) eGFR Calculation mL/min/1.73m2 (Non-) (test code = 2713827064) eGFR Calculation mL/min/1.73m2 () (test code = 9965809601) KIM (test code = KIM) Association of [...] tests). Lab Interpretation Abnormal (test code = 45609-5) [facility] CenterMAGNESIUM2020-10-22 10:24:00 Test Item Value Reference Range Interpretation Comments MAGNESIUM (test code = 2465024308) 1.8 mg/dL 1.7-2.4 Lab Interpretation (test code = Normal 54200-9) [facility] with [id number] 10:11:00 Test Item Value Reference Range Interpretation Comments WBC (test code = See_Comment [Automated 1790-2) message] The sy stem which generated this result transmitted reference range : 4.30 - 11.10 10*3/?L. The reference range was not used to interpret this result as normal/abnormal . RBC (test code = See_Comment L [Automated 439-8) message] The sy stem which generated this [...] RDW-SD (test code = 47.9 fL 39-49.9 34557-2) RDW-CV (test code = 13.7 % 12-15.5 788-0) PLT (test code = See_Comment [Automated 777-3) message] The sy stem which generated this result transmitted reference range : 166 - 358 10*3/ ?L. The reference r luca was not used to interpret this result as normal/abnormal . MPV (test code = 8.5 fL 9.5-12.9 L 69233-8) NRBC/100 WBC (test See_Comment [Automat ed code = 6234046159) message] The system which generated this result transmitted reference range : 0.0 - 10.0 /100 WBCs. The refer ence range was not u sed to interpret th is result as normal/abnormal . NRBC x10^3 (test code <0.01 See_Comment [Auto mated = 3923583819) message] The s ystem which generated this result transmitted reference range : 10*3/?L. The reference range was not used to interpret this result as normal/abnormal . GRAN MAT (NEUT) % 74.2 % (test code = 770-8) IMM GRAN % (test code 0.40 % = 3938043532) LYMPH % (test code = 16.6 % 736-9) MONO % (test code = 6.8 % 5905-5) EOS % (test code = 1.7 % 713-8) BASO % (test code = 0.3 % 706-2) GRAN MAT x10^3(ANC) 5.60 10*3/uL 1.88-7.09 (test code = 3138794510) IMM GRAN x10^3 (test 0.03 10*3/uL 0-0.06 code = 4961007739) LYMPH x10^3 (test code 1.25 10*3/uL 1.32-3.29 L = 731-0) MONO x10^3 (test code 0.51 10*3/uL 0.33-0.92 = 742-7) EOS x10^3 (test code = 0.13 10*3/uL 0.03-0.39 711-2) BASO x10^3 (test code <0.03 0.01-0.07 = 704-7) Lab Interpretation Abnormal (test code = 92835-0) [facility] CenterANTI-NUCLEAR ANTIBODY [id number] 19:43:00 Test Item Value Reference Range Interpretation Comments LESLY (test code = Negative Negative 3508304922) KIM (test code = KIM) Cytoplasmic staining reactions observed. Negative - No Anti-Nuclear Antibodies detected by IFA.Positive - LESLY IFA screen performed with a 1:80 dilution in adults and a 1:40 dilution in pediatrics. Any LESLY "Positive" will have titer performed and reported separately. Lab Interpretation (test Normal code = 06537-5) [facility] CenterCERULOPLASMIN2020-10-21 18:45:00 Test Item Value Reference Range Interpretation Comments CERULO (test code = 3934363641) 55 mg/dL 25-63 Lab Interpretation (test code = Normal 41931-2) [facility] CenterAMMONIA, [id number] 17:29:00 Test Item Value Reference Range Interpretation Comments AMMONIA (test code = 5714655409) <9 9-33 L Lab Interpretation (test code = Abnormal 57485-3) [facility] CenterBLOOD CULTURE [id number] 17:07:00 Test Item Value Reference Range Interpretation Comments Blood Culture-Aerobic Culture positive. No growth AA P revious (test code = 41787-2) See Blood Culture p reliminary Workup for verified result additional was Culture In information. Progress on 01/31/2020 at 1701 CDTPreviou s preliminary verified result was No growth a t 24 hours on 02/01/2020 at 1401 CDT Blood No organisms No growth Previous Culture-Anaerobic isolated preliminar y (test code = 84799-2) verifi ed result was Culture In Progress on 01/31/2020 at 1701 CDTPreviou s preliminary verified result was No growth a t 24 hours on 02/01/2020 at 1401 CDT Lab Interpretation Abnormal (test code = 56534-5) [facility] acute hospitalOOD CULTURE [id number] 17:07:00 Test Item Value Reference Range Interpretation [...] positive cocci is no longer being reported. [facility] CenterCREATINE [id number] 10:44:00 Test Item Value Reference Range Interpretation Comments CK (test code = 8147154219) 21 U/L 33-194 L Lab Interpretation (test code = Abnormal 44393-1) [facility] CenterN-TERMINAL [id number] 09:34:00 Test Item Value Reference Range Interpretation Comments NT-proBNP (test code 850 pg/mL See_Comment H [Autom ated = 1146766339) message] The system which generated this result transmitted reference range : <=125. The reference range was not used to interpret this result as normal/abnormal . KIM (test code = KIM) Biotin has been reported to cause a negative bias, interpret results relative to patient's use of biotin. Lab Interpretation Abnormal (test code = 41786-6) [facility]. METABOLIC PANEL (02326)2020-02-03 09:26:00 Test Item Value Reference Range Interpretation Comments NA (test code = 136 mmol/L 135-145 9822954453) K (test code = 3.6 mmol/L 3.5-5 3488935149) CL (test code = 104 mmol/L 98-108 9634930752) CO2 TOTAL (test code = 28 mmol/L 23-31 3564298869) AGAP (test code = 2-16 1491823565) BUN (test code = 7 mg/dL 7-23 6113149353) GLUCOSE (test code = 138 mg/dL 70-110 H 9953858309) CREATININE (test code = 0.61 mg/dL 0.5-1.04 8700397485) TOTAL BILI (test code = 1.0 mg/dL 0.1-1.1 1450651438) CALCIUM (test code = 9.2 mg/dL 8.6-10.6 7210370810) T PROTEIN (test code = 6.6 g/dL 6.3-8.2 3272094848) ALBUMIN (test code = 3.5 g/dL 3.5-5 2469229549) ALK PHOS (test code = 584 U/L 34-122 H 1241734073) ALTv (test code = 131 U/L 5-35 H 1742-6) AST(SGOT) (test code = 49 U/L 13-40 H 4956805665) eGFR Calculation mL/min/1.73m2 (Non-) (test code = 4224280795) eGFR Calculation mL/min/1.73m2 () (test code = 6669305898) KIM (test code = KIM) Association of [...] tests). Lab Interpretation Abnormal (test code = 81089-9) [facility] Test Item Value Reference Range Interpretation Comments MAGNESIUM (test code = 8728869982) 1.7 mg/dL 1.7-2.4 Lab Interpretation (test code = Normal 11780-7) [facility] CenterPHOSPHORUS2020-10-21 09:26:00 Test Item Value Reference Range Interpretation Comments PHOSPHORUS (test code = 4860749880) 4.1 mg/dL 2.5-5 Lab Interpretation (test code = Normal 69187-1) [facility] CenterURIC [id number] 09:26:00 Test Item Value Reference Range Interpretation Comments URIC ACID (test code = 1536138969) 3.4 mg/dL 2.9-6 Lab Interpretation (test code = Normal 06447-5) [facility] CenterCB WITH [id number] 08:58:00 Test Item Value Reference Range Interpretation [...] RDW-SD (test code = 47.2 fL 39-49.9 75742-9) RDW-CV (test code = 13.2 % 12-15.5 788-0) PLT (test code = See_Comment [Automated 777-3) message] The sy stem which generated this result transmitted reference range : 166 - 358 10*3/ ?L. The reference r luca was not used to interpret this result as normal/abnormal . MPV (test code = 8.7 fL 9.5-12.9 L 47148-5) NRBC/100 WBC (test See_Comment [Automat ed code = 2422206949) message] The system which generated this result transmitted reference range : 0.0 - 10.0 /100 WBCs. The refer ence range was not u sed to interpret th is result as normal/abnormal . NRBC x10^3 (test code <0.01 See_Comment [Auto mated = 5263766579) message] The s ystem which generated this result transmitted reference range : 10*3/?L. The reference range was not used to interpret this result as normal/abnormal . GRAN MAT (NEUT) % 78.4 % (test code = 770-8) IMM GRAN % (test code 0.50 % = 0898991302) LYMPH % (test code = 12.5 % 736-9) MONO % (test code = 6.1 % 5905-5) EOS % (test code = 2.1 % 713-8) BASO % (test code = 0.4 % 706-2) GRAN MAT x10^3(ANC) 6.43 10*3/uL 1.88-7.09 (test code = 4748791937) IMM GRAN x10^3 (test 0.04 10*3/uL 0-0.06 code = 6697496206) LYMPH x10^3 (test code 1.02 10*3/uL 1.32-3.29 L = 731-0) MONO x10^3 (test code 0.50 10*3/uL 0.33-0.92 = 742-7) EOS x10^3 (test code = 0.17 10*3/uL 0.03-0.39 711-2) BASO x10^3 (test code 0.03 10*3/uL 0.01-0.07 = 704-7) Lab Interpretation Abnormal (test code = 23651-3) [facility] CenterVALPROIC ACID, [id number] 05:42:00 Test Item Value Reference Range Interpretation Comments Valproic Acid, Free <2.0 4-15 L (test code = 3581785409) KIM (test code = KIM) Toxic Range: ? Greater than 15 ug/mL Test developed and characteristics determined by [facility] Laboratory Services. Lab Interpretation Abnormal (test code = 47662-0) [facility] CenterHAV ANTIBODY (IGG AND IGM)2020-02-03 04:20:00 Test Item Value Reference Range Interpretation Comments HAV Total (test code Positive = 0524422171) HAVT Semi-Quantitative (test code = 6760028350) KIM (test code = KIM) Indicates past or present infection with HAV or exposure to HAV due to vaccination. [facility] CenterHEPATITIS B SURFACE [id number] 04:12:00 Test Item Value Reference Range Interpretation Comments HBsAB (test code = Negative 2969789717) HBsAb mIU/mL Semi-Quantitative (test code = 7007174965) KIM (test code = Interpretation: KIM) ?Hepatitis B Surface Antibody ? Negative - Patient is considered to be not immune to infection with HBV. ? ? Positive - Anti-HBs detected at greater than or equal to 12 mIU/mL. ?Patient is considered to be immune to infection with HBV. ? [facility] CenterHCV [id number] 04:12:00 Test Item Value Reference Range Interpretation Comments HCV Ab (test code = 54588-6) Negative HCV Semi-Quantitative (test code = 81254-7) [facility] B SURFACE [id number] 03:55:00 Test Item Value Reference Range Interpretation Comments HBsAg Semi-Quantitative (test code = Negative Negative 5195-3) [facility] CenterPROCALCITONIN2020-10-21 03:54:00 Test Item Value Reference Range Interpretation Comments Procalcitonin (test 0.05 ng/mL <0.07 code = 9095679071) KIM (test code = KIM) INTERPRETATION OF [...] lung abscess/empyema. For further information please refer to:[email or web address] Lab Interpretation Normal (test code = 09872-3) [facility] CenterGLYCOSYLATED HEMOGLOBIN (A1C)2020-02-02 22:47:00 Test Item Value Reference Range Interpretation Comments HGB A1C (test code = 4.5 % 4-6 4548-4) KIM (test code = KIM) %A1C (NGSP) Interpretation (ADA)4.8-5.6 ? ? Normal or (Non-Diabetic Range)5.7-6.4 ? ? Increased Risk (Pre-Diabetic)>6.5 ?Diabetes Indicated Lab Interpretation Normal (test code = 30094-4) [facility] CenterVALPROIC ACID, [id number] 22:28:00 Test Item Value Reference Range Interpretation Comments VALPROIC A (test code = <10 50-100 L 0673961893) KIM (test code = KIM) Toxic Range: ?Greater than 100 ug/mL Lab Interpretation (test Abnormal code = 03795-8) [facility] CenterLIPID PANEL (35175)(TOTAL CHOLESTEROL, TRIGLYCERIDES, HDL)2020-02-02 21:23:00 Test Item Value Reference Range Interpretation Comments CHOL (test code = 343 mg/dL 120-200 H 6206805542) HDL (test code = 87 mg/dL >50 3769710096) HDLC RATIO (test code = See_Comment [Au tomated message] 9593730254) The system [employer] generated this result transmit gulshan reference range : <=4.5. The refe rence range was not u sed to interpret th is result as normal/abnormal . TRIG (test code = 131 mg/dL 30-170 2201358061) LDL CHOL (test code = 230 mg/dL See_Comment H [Auto mated message] 47780-0) The system [employer] generated this result transmit gulshan reference range : <=160. The refe rence range was not u sed to interpret th is result as normal/abnormal . VLDL (test code = 26 mg/dL 5-60 2503152666) Lab Interpretation (test Abnormal code = 43124-8) [facility] CenterPROTHROMBIN TIME / [id number] 21:16:00 Test Item Value Reference Range Interpretation Comments PROTIME PATIENT (test See_Comment [Auto mated message] code = 5964-2) The system [employer] generated this result transmitted ref erence range: 12.0 - 1 4.7 Seconds. The re ference range was not u sed to interpret this result as normal/abnor mal. INR (test code = 6301-6) Nor mal INR <1.1; Warfarin Therap eutic range 2.0 to 3. 0 or 2.5 to 3.5, dep ending upon the indica tions. Lab Interpretation (test Normal code = 70342-5) [facility] CenterCREATINE [id number] 21:15:00 Test Item Value Reference Range Interpretation Comments CK (test code = 4198974947) 37 U/L 33-194 Lab Interpretation (test code = Normal 84475-9) [facility] CenterLIPASE2020-10-20 12:34:00 Test Item Value Reference Range Interpretation Comments LIPASE (test code = 0176356350) 203 U/L 0-220 Lab Interpretation (test code = Normal 61176-4) [facility] CenterCOMP. METABOLIC PANEL (33055)2020-02-02 12:34:00 Test Item Value Reference Range Interpretation Comments NA (test code = 135 mmol/L 135-145 9296956935) K (test code = 3.5 mmol/L 3.5-5 5706555244) CL (test code = 103 mmol/L 98-108 9202979342) CO2 TOTAL (test code = 25 mmol/L 23-31 9524065085) AGAP (test code = 2-16 6175961130) BUN (test code = 8 mg/dL 7-23 4782801741) GLUCOSE (test code = 148 mg/dL 70-110 H 4257165968) CREATININE (test code = 0.55 mg/dL 0.5-1.04 9930153455) TOTAL BILI (test code = 1.2 mg/dL 0.1-1.1 H 1986761725) CALCIUM (test code = 9.4 mg/dL 8.6-10.6 9444777252) T PROTEIN (test code = 6.9 g/dL 6.3-8.2 3683257401) ALBUMIN (test code = 3.6 g/dL 3.5-5 8385040996) ALK PHOS (test code = 723 U/L 34-122 H 4379919178) ALTv (test code = 166 U/L 5-35 H 1742-6) AST(SGOT) (test code = 72 U/L 13-40 H 5079155289) eGFR Calculation mL/min/1.73m2 (Non-) (test code = 1386809317) eGFR Calculation mL/min/1.73m2 () (test code = 7435443668) KIM (test code = KIM) Association of [...] tests). Lab Interpretation Abnormal (test code = 16920-4) [facility]2020-10-20 12:32:00 Test Item Value Reference Range Interpretation Comments Destin (test code = 0.4 mmol/L 0.6-1.2 L 1482693130) KIM (test code = KIM) Toxic Range: ? Greater than 1.2 mmol/L Lab Interpretation (test Abnormal code = 89713-1) [facility] CenterPOCT GLUCOSE (AUTOMATED)2020-02-02 11:34:00 Test Item Value Reference Range Interpretation Comments POCT GLU (test code = 7510135582) 138 mg/dL 70-110 H Lab Interpretation (test code = Abnormal 77090-5) [facility]74[facility] 10:51:00 Test Item Value Reference Range Interpretation Comments NA (test code = 129 mmol/L 135-145 L 9448938768) K (test code = 3.0 mmol/L 3.5-5 L 8329474715) CL (test code = 100 mmol/L 98-108 2524093417) CO2 TOTAL (test code = 22 mmol/L 23-31 L 7088010458) AGAP (test code = 2-16 3274557582) BUN (test code = 8 mg/dL 7-23 6398865351) GLUCOSE (test code = 632 mg/dL 70-110 HH 7791668524) CREATININE (test code = 0.54 mg/dL 0.5-1.04 6946699789) TOTAL BILI (test code = 1.0 mg/dL 0.1-1.0 3641143744) CALCIUM (test code = 7.9 mg/dL 8.6-10.6 L 2999120156) T PROTEIN (test code = 5.3 g/dL 6.3-8.2 L 6491292151) ALBUMIN (test code = 2.7 g/dL 3.5-5 L 0611838400) ALK PHOS (test code = 562 U/L 34-122 H 2485839936) ALTv (test code = 138 U/L 5-35 H 1742-6) AST(SGOT) (test code = 61 U/L 13-40 H 8794350914) eGFR Calculation mL/min/1.73m2 (Non-) (test code = 7233392797) eGFR Calculation mL/min/1.73m2 () (test code = 6579083963) KIM (test code = KIM) Association of [...] tests). Lab Interpretation Abnormal (test code = 85914-8) [facility] CenterLIPASE2020-10-20 10:40:00 Test Item Value Reference Range Interpretation Comments LIPASE (test code = 9937304467) 140 U/L 0-220 Lab Interpretation (test code = Normal 59653-6) [facility] CenterLITHIUM2020-10-20 10:37:00 Test Item Value Reference Range Interpretation Comments Destin (test code = 0.5 mmol/L 0.6-1.2 L 7452600378) KIM (test code = KIM) Toxic Range: ? Greater than 1.2 mmol/L Lab Interpretation (test Abnormal code = 55097-6) [facility] WITH [id number] 09:57:00 Test Item Value Reference Range Interpretation [...] RDW-SD (test code = 47.2 fL 39-49.9 81161-6) RDW-CV (test code = 13.1 % 12-15.5 788-0) PLT (test code = See_Comment [Automated 777-3) message] The sy stem which generated this result transmitted reference range : 166 - 358 10*3/ ?L. The reference r luca was not used to interpret this result as normal/abnormal . MPV (test code = 9.7 fL 9.5-12.9 25099-3) NRBC/100 WBC (test See_Comment [Automat ed code = 2241955226) message] The system which generated this result transmitted reference range : 0.0 - 10.0 /100 WBCs. The refer ence range was not u sed to interpret th is result as normal/abnormal . NRBC x10^3 (test code <0.01 See_Comment [Auto mated = 8590713421) message] The s ystem which generated this result transmitted reference range : 10*3/?L. The reference range was not used to interpret this result as normal/abnormal . GRAN MAT (NEUT) % 78.6 % (test code = 770-8) IMM GRAN % (test code 0.50 % = 8181602310) LYMPH % (test code = 13.1 % 736-9) MONO % (test code = 5.5 % 5905-5) EOS % (test code = 2.0 % 713-8) BASO % (test code = 0.3 % 706-2) GRAN MAT x10^3(ANC) 5.18 10*3/uL 1.88-7.09 (test code = 4449528878) IMM GRAN x10^3 (test 0.03 10*3/uL 0-0.06 code = 9446064350) LYMPH x10^3 (test code 0.86 10*3/uL 1.32-3.29 L = 731-0) MONO x10^3 (test code 0.36 10*3/uL 0.33-0.92 = 742-7) EOS x10^3 (test code = 0.13 10*3/uL 0.03-0.39 711-2) BASO x10^3 (test code <0.03 0.01-0.07 = 704-7) Lab Interpretation Abnormal (test code = 87591-1) [facility] POSITIVE BLOOD PATHOGENS DNA [id number] 06:56:00 Test Item Value Reference Range Interpretation Comments Coagulase Negative Positive Negative, See A Staphylococcus (test Comment/Narrative code = 66197-7) KIM (test code = KIM) Coagulase negative [...] contact the Antimicrobial Stewardship Program with questions.Pager: ?[phone] Testing included eleven identification and three resistance marker targets. Lab Interpretation Abnormal (test code = 75348-1) [facility] ONLY COVID [id number] 20:46:00COVID DMT InterpretationInterpretation/Recommendations\\nTests (PCR) for Active Infection [...] test is performed there is approximately a rod-zd-bphjm chance the patient had been infected and [...] and IgG antibodies, this may be the explanation.[facility] SERVICESCOVID DrxscniUNBE-ArR-2 Rapid ID NOW (no units) ? ? Date ? Value ? 01/31/2020 ? Not Detected ? ? ? 08/21/2019 ? Not Detected ? [facility] SERVICESUn[facility]OD [id number] 19:37:00 Test Item Value Reference Range Interpretation Comments PH (test code = 7.32-7.42 L 9165026151) PCO2 SANDHYA (test code = See_Comment [Auto mated message] 9910422802) The system [employer] generated this result transmitted ref erence range: 41 - 51 mmHg. The reference r luca was not used to interpret this result as normal/abnor mal. PO2 SANDHYA (test code = See_Comment HH [Autom ated message] 0658884153) The system [employer] generated this result transmitted ref erence range: 25 - 40 mmHg. The reference r luca was not used to interpret this result as normal/abnor mal. HCO3 SANDHYA (test code = See_Comment L [Auto mated message] 0152990909) The system [employer] generated this result transmitted ref erence range: 24 - 28 mEq/L. The reference r luca was not used to interpret this result as normal/abnor mal. AC VBE(BEAKER) (test mEq/L code = 3775525582) Lab Interpretation (test Abnormal code = 88473-8) [facility] CenterUS ABDOMEN [id number] 17:02:17 No sonographic findings to explain patient's [...] Results portions of the IVC appear unremarkable. [facility], Radiant Results Inft User - 02/01/2020 12:03 [...] kidneys. No appreciable atrophyor cortical thinning. No hydronephrosis.[facility] CenterUrine [id number] 16:35:00 Test Item Value Reference Range Interpretation Comments URINE CULTURE (test No aerobic growth (< code = 630-4) 1000 CFU/mL) [facility] CenterDIFF CONSULT [id number] 15:41:00 MATURE LEUKOCYTES WITH REACTIVE LYMPHOCYTES, REACTIVE MONOCYTES AND OCCASIONAL TOXIC NEUTROPHILS. RARE HYPERSEGMENTED NEUTROPHILS. MACROCYTIC ANEMIA WITH POLYCHROMASIA AND POIKILOCYTOSIS INCLUDING BURRCELLS AND TARGET CELLS. THESE CHANGES ARE SUGGESTIVE OF EARLY VITAMIN B12 DEFICIENCY ANEMIA. AMPLE PLATELETS. [facility] CenterPOCT GLUCOSE (AUTOMATED)2020-02-01 13:06:00 Test Item Value Reference Range Interpretation Comments POCT GLU (test code = 3858086333) 104 mg/dL 70-110 Lab Interpretation (test code = Normal 70135-2) [facility] CenterCOMP. METABOLIC PANEL (37800)2020-02-01 13:00:00 Test Item Value Reference Range Interpretation Comments NA (test code = 139 mmol/L 135-145 5606840217) K (test code = 4.1 mmol/L 3.5-5 4913987338) CL (test code = 112 mmol/L 98-108 H 0106287194) CO2 TOTAL (test code = 20 mmol/L 23-31 L 8022147836) AGAP (test code = 2-16 4887179439) BUN (test code = 16 mg/dL 7-23 7118904615) GLUCOSE (test code = 99 mg/dL 70-110 9981862226) CREATININE (test code = 0.85 mg/dL 0.5-1.04 6112081602) TOTAL BILI (test code = 1.3 mg/dL 0.1-1.1 H 8085337021) CALCIUM (test code = 8.6 mg/dL 8.6-10.6 4748801246) T PROTEIN (test code = 6.2 g/dL 6.3-8.2 L 4387940626) ALBUMIN (test code = 3.2 g/dL 3.5-5 L 4464277070) ALK PHOS (test code = 646 U/L 34-122 H 8474164993) ALTv (test code = 209 U/L 5-35 H 1742-6) AST(SGOT) (test code = 110 U/L 13-40 H 6972649918) eGFR Calculation mL/min/1.73m2 (Non-) (test code = 6547445591) eGFR Calculation mL/min/1.73m2 () (test code = 7888842897) KIM (test code = KIM) Association of [...] tests). Lab Interpretation Abnormal (test code = 49431-1) [facility] CenterLIPASE2020-10-19 11:07:00 Test Item Value Reference Range Interpretation Comments LIPASE (test code = 5779641522) 353 U/L 0-220 H Lab Interpretation (test code = Abnormal 05336-2) [facility] CenterLITHIUM2020-10-19 11:05:00 Test Item Value Reference Range Interpretation Comments Destin (test code = 1.0 mmol/L 0.6-1.2 0834354520) KIM (test code = KIM) Toxic Range: ? Greater than 1.2 mmol/L Lab Interpretation (test Normal code = 62874-1) [facility] CenterCB with Ruyfdtngiizo6365-89-90 10:56:00 Test Item Value Reference Range Interpretation [...] RDW-SD (test code = 49.7 fL 39-49.9 59243-3) RDW-CV (test code = 13.2 % 12-15.5 788-0) PLT (test code = See_Comment L [Automated 777-3) message] The sy stem which generated this result transmitted reference range : 166 - 358 10*3/ ?L. The reference r luca was not used to interpret this result as normal/abnormal . MPV (test code = 9.7 fL 9.5-12.9 10707-4) NRBC/100 WBC (test See_Comment [Automat ed code = 7876200122) message] The system which generated this result transmitted reference range : 0.0 - 10.0 /100 WBCs. The refer ence range was not u sed to interpret th is result as normal/abnormal . NRBC x10^3 (test code <0.01 See_Comment [Auto mated = 4269093384) message] The s ystem which generated this result transmitted reference range : 10*3/?L. The reference range was not used to interpret this result as normal/abnormal . GRAN MAT (NEUT) % 79.3 % (test code = 770-8) IMM GRAN % (test code 0.40 % = 9567862389) LYMPH % (test code = 11.4 % 736-9) MONO % (test code = 6.1 % 5905-5) EOS % (test code = 2.6 % 713-8) BASO % (test code = 0.2 % 706-2) GRAN MAT x10^3(ANC) 4.30 10*3/uL 1.88-7.09 (test code = 5129815724) IMM GRAN x10^3 (test <0.03 0-0.06 code = 7674825408) LYMPH x10^3 (test code 0.62 10*3/uL 1.32-3.29 L = 731-0) MONO x10^3 (test code 0.33 10*3/uL 0.33-0.92 = 742-7) EOS x10^3 (test code = 0.14 10*3/uL 0.03-0.39 711-2) BASO x10^3 (test code <0.03 0.01-0.07 = 704-7) Lab Interpretation Abnormal (test code = 35302-9) [facility] CenterANIVAL CANDICE ZARATE - [id number] 09:27:00 Test Item Value Reference Range Interpretation Comments RPR (Qualitative) (test code = Nonreactive Nonreactive 73771-5) Lab Interpretation (test code = Normal 95440-2) [facility] CenterVITAMIN B12, [id number] 06:47:00 Test Item Value Reference Range Interpretation Comments VIT B12 (test code = 257 pg/mL 240-930 9951654244) KMI (test code = KIM) Biotin has been reported to cause a positive bias, interpret results relative to patient's use of biotin. Lab Interpretation (test Normal code = 79621-9) [facility] CenterFOLATE2020-10-19 06:46:00 Test Item Value Reference Range Interpretation Comments FOLATE SER (test code = 15.7 ng/mL 3-20 Biot in has been 8579224786) reported to cau se a positive bias, interpret resul ts relative to patient's use o f biotin. Lab Interpretation (test Normal code = 97988-9) [facility] CenterOSMOLALITY [id number] 05:47:00 Test Item Value Reference Range Interpretation Comments OSMOLALITY (test code = See_Comment [Au tomated message] 2461021836) The system [employer] generated this result transmitted ref erence range: 278 - 30 5 mOsm/kg. The re ference range was not u sed to interpret this result as normal/abnor mal. Lab Interpretation (test Normal code = 87407-3) [facility] CenterFERRITIN [id number] 01:01:00 Test Item Value Reference Range Interpretation Comments FERRITIN (test code = 234.0 ng/mL 11-264 9840221183) KIM (test code = KIM) Biotin has been reported to cause a negative bias, interpret results relative to patient's use of biotin. Lab Interpretation (test Normal code = 78854-4) [facility] CenterTHYROID STIMULATING [id number] 23:14:00 Test Item Value Reference Range Interpretation Comments TSH (test code = See_Comment Biotin has been 5075160217) reported to cau se a negative bias, interpret resul ts relative to pat ient's use of biotin. [Automated mess age] The system [employer] generated this result transmitted ref erence range: 0.45 - 4 .70 mIU/L. The refe rence range was not u sed to interpret this result as normal/abnor mal. Lab Interpretation (test Normal code = 42121-3) [facility] CenterIRON [id number] 22:39:00 Test Item Value Reference Range Interpretation Comments IRON (test code = 68 ug/dL 50-160 Slight hem olysis 2289701951) TIBC (test code = 271 ug/dL 250-410 2545798349) % FE SAT (test code = 25 % 20-50 4243895137) Lab Interpretation (test Normal code = 53036-5) [facility] CenterRETICULOCYTES [id number] 21:52:00 Test Item Value Reference Range Interpretation Comments RETIC Count Automated 2.17 % 0.51-1.9 H (test code = 7159014429) RETIC Absolute Count See_Comment [Autom ated message] (test code = 0258927696) The system which generated this result transmitted ref erence range: 0.0230 - 0.0950 10*6/?L. The reference range was not used to int erpret this result as normal/abnormal . IRF % (test code = 9.20 % 2.1-12.6 2891842927) RETIC-HE (test code = 35.1 pg 28.1-35.8 9950422172) Lab Interpretation (test Abnormal code = 27146-8) [facility] CenterABG+COOX+NA+K+GLU+CA2+2020-01-31 20:41:00 Test Item Value Reference Range Interpretation Comments PH (test code = 2) 7.35-7.45 L PCO2 (test code = See_Comment H [Automate d message] 8954051853) The system [employer] generated this result transmit gulshan reference range : 35 - 45 mmHg. The reference range was not used to interpret this result as normal/abnormal . PO2 (test code = See_Comment L [Automated message] 9455098793) The system [employer] generated this result transmit gulshan reference range : 80 - 100 mmHg. The reference range was not used to interpret this result as normal/abnormal . HCO3 (test code = See_Comment L [Automate d message] 0811536047) The system [employer] generated this result transmit gulshan reference range : 22 - 26 mEq/L. The reference range was not used to interpret this result as normal/abnormal . BE (test code = See_Comment L [Automated message] 7410070435) The system [employer] generated this result transmit gulshan reference range : -3.0 - 3.0 mEq/ L. The reference r luca was not used to interpret this result as normal/abnormal . THB (test code = 9.8 g/dL 12-16 L 2970021876) %O2HB (test code = 94.0 % 94-99 2875924498) %COHB ART (test code = 0.0 % 0-1.5 5758000277) %METHB ART (test code = 0.3 % 0.4-1.5 L 6942331681) VOL%O2 ART (test code = 13.0 % 15-23 L 2324089644) NA (test code = 137 mmol/L 135-145 5164049489) K+ (test code = 4.0 mmol/L 3.5-5 0711907772) AC CA IONZ (test code = 5.10 mg/dL 4.5-5.3 9998189890) GLUCOSE (test code = 100 mg/dL 70-110 6402622321) Lab Interpretation Abnormal (test code = 71673-4) [facility] CenterVALPROIC ACID, [id number] 19:51:00 Test Item Value Reference Range Interpretation Comments VALPROIC A (test code = <10 50-100 L 8660910376) KIM (test code = KIM) Toxic Range: ?Greater than 100 ug/mL Lab Interpretation (test Abnormal code = 81074-9) [facility] CenterACETAMINOPHEN2020-10-18 19:42:00 Test Item Value Reference Range Interpretation Comments ACETAMINOP (test code = <10.0 10-30 L 1190058631) KIM (test code = KIM) Toxic: Greater than 200 ug/mL @ 4 hour post ingestion or greater than 50 ug/mL @ 12 hour post ingestion Lab Interpretation (test Abnormal code = 01528-9) [facility] CenterLITHIUM2020-10-18 19:41:00 Test Item Value Reference Range Interpretation Comments Destin (test code = 1.4 mmol/L 0.6-1.2 H 9166907448) KIM (test code = KIM) Toxic Range: ? Greater than 1.2 mmol/L Lab Interpretation (test Abnormal code = 45816-9) [facility] CenterSALICYLATE2020-10-18 19:41:00 Test Item Value Reference Range Interpretation Comments SALICYLATE (test code <10 mg/L = 6899028494) KIM (test code = KIM) Therapeutic Range: ? Analgesic and Antipyretic Use ? 20-100 mg/L ? ? Anti-Inflammatory Use ? 100-250 mg/L Toxic Range: ? Greater than 300 mg/L [facility] 1 [id number] 17:46:20Impression: No acute cardiopulmonary disease. RL: ?2601 AFC: ?[id number] Chest, one view History: ?AMS . Altered [...] lungs.IMPRESSIONImpression: No acute cardiopulmonary disease. RL: 2601AFC: [id number] signed by Gatito Saul MD at 01/31/2020 12:46 [facility] Qysq7632-29-08 17:42:04 1. Nonobstructive intestinal bowel gas pattern. RL: ?2601 AFC: ?[id number] CLINICAL INFORMATION: Abdominal pain. Altered state of [...] bowel.IMPRESSION1. Nonobstructive intestinal bowel gas pattern.RL: 2601AFC: [id number] signed by Gatito Saul MD at 01/31/2020 12:[address] 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 CenterCREATINE [id number] 17:38:00 Test Item Value Reference Range Interpretation Comments CK (test code = 9691635391) 46 U/L 33-194 Slight hemolysis Lab Interpretation (test code Normal = 45343-0) [facility] CenterCT Head W/O Yppmtwir8166-51-61 17:05:24 Impression: 1. ?No acute intracranial process. [...] No acute intracranial process.2. Small right mastoid effusion.[facility] - DRUG SCREEN [id number] 16:57:00 Test Item Value Reference Range Interpretation Comments BENZO U (test code = Presumptive Negative A 1210398686) Positive SLIM U (test code = Negative Negative 8254692942) AMPHET (test code = Negative Negative 6415716031) THC (test code = Negative Negative 6468307066) METHADONE (test code Negative Negative = 5094644883) Meth U (test code = Negative Negative 0176650182) OPIATES (test code = Negative Negative 0208841191) Cocaine Metabolite Negative Negative (test code = 5175841309) PROPOXY (test code = Negative Negative 3502100941) Tric U (test code = Presumptive Negative A Confirma tion of 6030189796) Positive Presumptive Positive TCA result requires physician order and this will b e sent to referen ce lab. PCP (test code = Negative Negative 5761867820) OXYCOD (test code = Negative Negative 0885535806) KIM (test code = Urine Drug Cutoff [...] testing). Lab Interpretation Abnormal (test code = 21172-0) [facility] CenterUrinalysis2020-10-18 16:54:00 Test Item Value Reference Range Interpretation Comments APPEARANCE (test code = Hazy Clear A 1568264827) COLOR (test code = Romelia Yellow A 7659728594) PH (test code = 4.8-8.0 4672821952) SP GRAVITY (test code = 1.003-1.030 4551923244) GLU U QUAL (test code = Normal Normal 1891016549) BLOOD (test code = Negative Negative 3637873225) KETONES (test code = Negative Negative 6595860596) PROTEIN (test code = 30 mg/dL Negative A 2887-8) UROBILIN (test code = 4.0 mg/dL Normal A 5872945226) BILIRUBIN (test code = Negative Negative 8362230835) NITRITE (test code = Negative Negative 7763915953) LEUK NICHOLE (test code = 25/uL Negative A 7240240606) RBC/HPF (test code = See_Comment [Autom ated message] 6180275970) The system [employer] generated this result transmit gulshan reference range : 0 - 3 HPF. The refe rence range was not u sed to interpret th is result as normal/abnormal . WBC/HPF (test code = See_Comment H [Autom ated message] 3365713861) The system [employer] generated this result transmit gulshan reference range : 0 - 5 HPF. The refe rence range was not u sed to interpret th is result as normal/abnormal . BACTERIA (test code = Few Negative A 5959036445) MUCOUS (test code = Moderate Negative LPF A 9771141526) SQ EPITH (test code = HPF 0215117533) HYAL CAST (test code = See_Comment H [Aut omated message] 8014890145) The system [employer] generated this result transmit gulshan reference range : <=2 LPF. The refere nce range was not u sed to interpret th is result as normal/abnormal . GRAN CASTS (test code = See_Comment H [Au tomated message] 5430047048) The system [employer] generated this result transmit gulshan reference range : <=1 LPF. The refere nce range was not u sed to interpret th is result as normal/abnormal . Lab Interpretation (test Abnormal code = 15818-5) [facility] CenterCOVID-19 (ID NOW RAPID TESTING)2020-01-31 16:39:00 Test Item Value Reference Range Interpretation Comments SARS-CoV-2 Rapid ID NOW Not Detected Not Detected (test code = 14303-7) KIM (test code = KIM) ID NOW COVID-19 Assay is an isothermal nucleic acid amplification test intended for the qualitative detection of nucleic acid from SARS-CoV-2 viral RNA in nasopharyngeal ([employer]) specimens. It is used under Emergency Use [...] indicated. Lab Interpretation Normal (test code = 99995-2) [facility] CenterTranthonyliza [id number] 16:38:00 Test Item Value Reference Range Interpretation Comments TROPONIN I (test <0.012 See_Comment [Automated code = 0742201212) message] The system which generated this result [...] ? Lab Interpretation Normal (test code = 11260-5) [facility] CenterN-TERMINAL [id number] 16:34:00 Test Item Value Reference Range Interpretation Comments NT-proBNP (test code 283 pg/mL See_Comment H [Autom ated = 5022574047) message] The system which generated this result transmitted reference range : <=125. The reference range was not used to interpret this result as normal/abnormal . KIM (test code = KIM) Biotin has been reported to cause a negative bias, interpret results relative to patient's use of biotin. Lab Interpretation Abnormal (test code = 08891-7) [facility] (NA, K, CL, CO2, GLUCOSE, BUN, CREATININE, CA)2020-01-31 16:26:00 Test Item Value Reference Range Interpretation Comments NA (test code = 134 mmol/L 135-145 L 5787864725) K (test code = 4.9 mmol/L 3.5-5 7534346198) CL (test code = 107 mmol/L 98-108 0501806542) CO2 TOTAL (test code = 19 mmol/L 23-31 L 9029430481) AGAP (test code = 2-16 6573858109) BUN (test code = 30 mg/dL 7-23 H 1444141523) GLUCOSE (test code = 106 mg/dL 70-110 8486780990) CREATININE (test code = 2.21 mg/dL 0.5-1.04 H 6451249760) CALCIUM (test code = 9.5 mg/dL 8.6-10.6 8132006054) eGFR Calculation mL/min/1.73m2 (Non-) (test code = 5090535297) eGFR Calculation mL/min/1.73m2 () (test code = 1185755936) KIM (test code = KIM) Association of [...] tests). Lab Interpretation Abnormal (test code = 07636-9) [facility] (ALB, T.PRO, BILI T, BU/BC, ALT, AST, ALK PHOS)2020-01-31 16:26:00 Test Item Value Reference Range Interpretation Comments TOTAL BILI (test code = 9159386962) 1.5 mg/dL 0.1-1.1 H BILI UNCON (test code = 9015371479) 0.4 mg/dL 0.1-1.1 BILI CONJ (test code = 8452423862) 0.0 mg/dL 0-0.3 T PROTEIN (test code = 2682447622) 8.0 g/dL 6.3-8.2 ALBUMIN (test code = 5492706244) 4.0 g/dL 3.5-5 ALK PHOS (test code = 2073561300) 714 U/L 34-122 H ALTv (test code = 1742-6) 352 U/L 5-35 H AST(SGOT) (test code = 8878702894) 256 U/L 13-40 H Lab Interpretation (test code = Abnormal 10368-1) [facility] CenterLipase [id number] 16:26:00 Test Item Value Reference Range Interpretation Comments LIPASE (test code = 4176783225) 410 U/L 0-220 H Lab Interpretation (test code = Abnormal 20489-3) [facility] CenterAMMONIA, [id number] 16:25:00 Test Item Value Reference Range Interpretation Comments AMMONIA (test code = 32 umol/L 9-33 Slight hemolysis 0686457577) Lab Interpretation (test Normal code = 76507-6) [facility] CenterCBC with [id number] 16:13:00 Test Item Value Reference Range Interpretation [...] (test code = 51.4 fL 39-49.9 H 86269-8) RDW-CV (test code = 13.7 % 12-15.5 788-0) PLT (test code = See_Comment [Automated 777-3) message] The sy stem which generated this result transmitted reference range : 166 - 358 10*3/ ?L. The reference r luca was not used to interpret this result as normal/abnormal . MPV (test code = 10.3 fL 9.5-12.9 55776-0) NRBC/100 WBC (test See_Comment [Automat ed code = 7056295172) message] The system which generated this result transmitted reference range : 0.0 - 10.0 /100 WBCs. The refer ence range was not u sed to interpret th is result as normal/abnormal . NRBC x10^3 (test code <0.01 See_Comment [Auto mated = 6586386789) message] The s ystem which generated this result transmitted reference range : 10*3/?L. The reference range was not used to interpret this result as normal/abnormal . GRAN MAT (NEUT) % 77.1 % (test code = 770-8) IMM GRAN % (test code 0.40 % = 0596575689) LYMPH % (test code = 12.2 % 736-9) MONO % (test code = 5.7 % 5905-5) EOS % (test code = 4.3 % 713-8) BASO % (test code = 0.3 % 706-2) GRAN MAT x10^3(ANC) 5.97 10*3/uL 1.88-7.09 (test code = 7566630291) IMM GRAN x10^3 (test 0.03 10*3/uL 0-0.06 code = 4432399694) LYMPH x10^3 (test code 0.94 10*3/uL 1.32-3.29 L = 731-0) MONO x10^3 (test code 0.44 10*3/uL 0.33-0.92 = 742-7) EOS x10^3 (test code = 0.33 10*3/uL 0.03-0.39 711-2) BASO x10^3 (test code <0.03 0.01-0.07 = 704-7) Lab Interpretation Abnormal (test code = 19168-9) [facility] BranchL[facility] Whole [id number] 16:03:00 Test Item Value Reference Range Interpretation Comments LACTIC ACID (test code = 1.03 mmol/L 0.3-2.6 4123276340) Lab Interpretation (test code = Normal 99178-3) [facility] CenterCT ABDOMEN PELVIS W [id number] 23:00:141. ?Mild circumferential urinary bladder wall thickening [...] the pancreatic duct, unchanged since February2019. [id number] 21:36:00 Test Item Value Reference Range Interpretation Comments TROPONIN I (test <0.012 See_Comment [Automated code = 6346739971) message] The system which generated this result [...] ? Lab Interpretation Normal (test code = 32449-6) [facility] CenterUrinalysis2020-09-04 21:30:00 Test Item Value Reference Range Interpretation Comments APPEARANCE (test code = Clear Clear 0482176679) COLOR (test code = Yellow Yellow 2248363575) PH (test code = 4.8-8.0 0161205211) SP GRAVITY (test code = 1.003-1.030 7146903131) GLU U QUAL (test code = Normal Normal 5799392539) BLOOD (test code = Negative Negative 5340230939) KETONES (test code = Negative Negative 6758317707) PROTEIN (test code = Negative Negative 2887-8) UROBILIN (test code = 4.0 mg/dL Normal A 1165898679) BILIRUBIN (test code = Negative Negative 3951277187) NITRITE (test code = Negative Negative 1485763928) LEUK NICHOLE (test code = Negative Negative 0205268108) RBC/HPF (test code = See_Comment [Autom ated message] 9742935192) The system [employer] generated this result transmit gulshan reference range : 0 - 3 HPF. The refe rence range was not u sed to interpret th is result as normal/abnormal . WBC/HPF (test code = See_Comment [Autom ated message] 8130183684) The system [employer] generated this result transmit gulshan reference range : 0 - 5 HPF. The refe rence range was not u sed to interpret th is result as normal/abnormal . BACTERIA (test code = Few Negative A 8002590684) MUCOUS (test code = Slight Negative LPF A 6416974505) SQ EPITH (test code = HPF 6365302833) HYAL CAST (test code = See_Comment [Aut omated message] 4017733105) The system [employer] generated this result transmit gulshan reference range : <=2 LPF. The refere nce range was not u sed to interpret th is result as normal/abnormal . Lab Interpretation (test Abnormal code = 21334-9) [facility] with [id number] 21:29:00 Test Item Value Reference Range Interpretation [...] (test code = 54.6 fL 39-49.9 H 48864-5) RDW-CV (test code = 14.9 % 12-15.5 788-0) PLT (test code = See_Comment L [Automated 777-3) message] The sy stem which generated this result transmitted reference range : 166 - 358 10*3/ ?L. The reference r luca was not used to interpret this result as normal/abnormal . MPV (test code = 9.5 fL 9.5-12.9 53695-3) IPF % (test code = 1.5 % 1.3-7.7 Platelet count 6395108561) measured by fluorescence method. NRBC/100 WBC (test See_Comment [Automat ed code = 9285105665) message] The system which generated this result transmitted reference range : 0.0 - 10.0 /100 WBCs. The refer ence range was not u sed to interpret th is result as normal/abnormal . NRBC x10^3 (test code <0.01 See_Comment [Auto mated = 7869194770) message] The s ystem which generated this result transmitted reference range : 10*3/?L. The reference range was not used to interpret this result as normal/abnormal . GRAN MAT (NEUT) % 64.0 % (test code = 770-8) IMM GRAN % (test code 1.00 % = 4771963185) LYMPH % (test code = 22.5 % 736-9) MONO % (test code = 11.0 % 5905-5) EOS % (test code = 1.0 % 713-8) BASO % (test code = 0.5 % 706-2) GRAN MAT x10^3(ANC) 2.61 10*3/uL 1.88-7.09 (test code = 5349874467) IMM GRAN x10^3 (test 0.04 10*3/uL 0-0.06 code = 2308986318) LYMPH x10^3 (test code 0.92 10*3/uL 1.32-3.29 L = 731-0) MONO x10^3 (test code 0.45 10*3/uL 0.33-0.92 = 742-7) EOS x10^3 (test code = 0.04 10*3/uL 0.03-0.39 711-2) BASO x10^3 (test code <0.03 0.01-0.07 = 704-7) Lab Interpretation Abnormal (test code = 66950-7) [facility] Metabolic Panel (NA, K, CL, CO2, GLUCOSE, BUN, CREATININE, CA)2019-12-18 21:25:00 Test Item Value Reference Range Interpretation Comments NA (test code = 138 mmol/L 135-145 8316440207) K (test code = 4.8 mmol/L 3.5-5 1949951730) CL (test code = 104 mmol/L 98-108 3517807307) CO2 TOTAL (test code = 27 mmol/L 23-31 7150734785) AGAP (test code = 2-16 6018145731) BUN (test code = 12 mg/dL 7-23 3586386917) GLUCOSE (test code = 101 mg/dL 70-110 5479628176) CREATININE (test code 0.70 mg/dL 0.5-1.04 = 7420219796) CALCIUM (test code = 9.3 mg/dL 8.6-10.6 7182188443) eGFR Calculation mL/min/1.73m2 (Non-) (test code = 2396843798) eGFR Calculation mL/min/1.73m2 () (test code = 8155032189) KIM (test code = KIM) Association of [...] or urine or abnormalities in imaging tests). [facility] CenterHep[facility] Function [facility] (ALB, T.PRO, BILI T, BU/BC, ALT, AST, ALK PHOS)2019-12-18 21:25:00 Test Item Value Reference Range Interpretation Comments TOTAL BILI (test code = 1251952203) 1.0 mg/dL 0.1-1.1 BILI UNCON (test code = 4586441012) 0.6 mg/dL 0.1-1.1 BILI CONJ (test code = 6836509448) 0.0 mg/dL 0-0.3 T PROTEIN (test code = 4516166450) 7.8 g/dL 6.3-8.2 ALBUMIN (test code = 0366262050) 4.3 g/dL 3.5-5 ALK PHOS (test code = 6601301692) 580 U/L 34-122 H ALTv (test code = 1742-6) 199 U/L 5-35 H AST(SGOT) (test code = 1276283941) 215 U/L 13-40 H Lab Interpretation (test code = Abnormal 29212-3) [facility] CenterLipase [id number] 21:25:00 Test Item Value Reference Range Interpretation Comments LIPASE (test code = 1991538314) 267 U/L 0-220 H Lab Interpretation (test code = Abnormal 63927-5) [facility] CenterXR CHEST 1 VW [id number] 02:17:38 No findings suggestive of COVID-19 pneumonia. Disclaimer: Generally, the findings on chest imaging in COVID-19 are notspecific, and overlap with other infections, including influenza, H1N1,SARS and MERS.According to the Centers for Disease Control (CDC) and the [employer], viral testing remains the only [...] Centers for Disease Control (CDC) and the [employer], viral testing remains the only specific method of diagnosiseven if CXR or CT findings are suggestive of COVID-19. Preliminary Report Dictated by Resident: Ritchie Merchant MD., have reviewed this study and agree with the abovereport.[facility] CORONAVIRUS COVID-19 [id number] 02:11:00 Test Item Value Reference Range Interpretation Comments SARS-CoV-2 (test code = Not Detected Not Detected 05430-7) KIM (test code = KIM) ID NOW COVID-19 Assay is an isothermal nucleic acid amplification test intended for the qualitative detection of nucleic acid from SARS-CoV-2 viral RNA in nasopharyngeal ([employer]) specimens. It is used under Emergency Use [...] indicated. Lab Interpretation Normal (test code = 21351-2) [facility] CenterTROPONIN [id number] 01:42:00 Test Item Value Reference Range Interpretation Comments TROPONIN I (test <0.012 See_Comment [Automated code = 9650204194) message] The system which generated this result [...] ? Lab Interpretation Normal (test code = 49891-1) [facility] CenterCOMP. METABOLIC PANEL (08384)2019-08-22 01:30:00 Test Item Value Reference Range Interpretation Comments NA (test code = 142 mmol/L 135-145 0119728301) K (test code = 4.1 mmol/L 3.5-5 3131897704) CL (test code = 106 mmol/L 98-108 6977258510) CO2 TOTAL (test code = 28 mmol/L 23-31 5431667339) AGAP (test code = 2-16 0612299461) BUN (test code = 16 mg/dL 7-23 7424635242) GLUCOSE (test code = 141 mg/dL 70-110 H 1949051608) CREATININE (test code = 0.75 mg/dL 0.5-1.04 5288188214) TOTAL BILI (test code = 0.8 mg/dL 0.1-1.5 4749325520) CALCIUM (test code = 9.6 mg/dL 8.6-10.6 5165208830) T PROTEIN (test code = 7.8 g/dL 6.3-8.2 2777923895) ALBUMIN (test code = 4.1 g/dL 3.5-5 1299361572) ALK PHOS (test code = 664 U/L 34-122 H 8254104540) ALTv (test code = 82 U/L 5-35 H 1742-6) AST(SGOT) (test code = 111 U/L 13-40 H 0867518483) eGFR Calculation mL/min/1.73m2 (Non-) (test code = 9920278634) eGFR Calculation mL/min/1.73m2 () (test code = 8003593967) KIM (test code = KIM) Association of [...] tests). Lab Interpretation Abnormal (test code = 58216-1) [facility] CenterLIPASE, [id number] 01:30:00 Test Item Value Reference Range Interpretation Comments LIPASE (test code = 7925682397) 87 U/L 0-220 Lab Interpretation (test code = Normal 38660-6) [facility] CenteraPTT2020-05-09 01:29:00 Test Item Value Reference Range Interpretation Comments APTT Patient (test See_Comment [Automat ed code = 3173-2) message] The system which generated this result transmitted reference range : 23 - 38 Seconds . The reference range was not used to interpr et this result as normal/abnormal . KIM (test code = KIM) The [facility] patient population mean normal value for aPTT is 30 seconds. Lab Interpretation Normal (test code = 14708-5) [facility] CenterPROTHROMBIN TIME / [id number] 01:27:00 Test Item Value Reference Range Interpretation [...] tions. Lab Interpretation (test Normal code = 12079-8) [facility] CenterURINALYSIS2020-05-09 01:25:00 Test Item Value Reference Range Interpretation Comments APPEARANCE (test code = Hazy Clear A 8069149323) COLOR (test code = Romelia Yellow A 0877356186) PH (test code = 4.8-8.0 9245530808) SP GRAVITY (test code = 1.003-1.030 4078374549) GLU U QUAL (test code = Normal Normal 1140261606) BLOOD (test code = Negative Negative 7461928694) KETONES (test code = Negative Negative 6365916515) PROTEIN (test code = 30 mg/dL Negative A 2887-8) UROBILIN (test code = 4.0 mg/dL Normal A 5929030297) BILIRUBIN (test code = Negative Negative 7021004971) NITRITE (test code = Positive Negative A 0651329530) LEUK NICHOLE (test code = 500/uL Negative A 9026781787) RBC/HPF (test code = See_Comment H [Autom ated message] 6402136491) The system [employer] generated this result transmit gulshan reference range : 0 - 3 HPF. The refe rence range was not u sed to interpret th is result as normal/abnormal . WBC/HPF (test code = See_Comment H [Autom ated message] 2308173896) The system [employer] generated this result transmit gulshan reference range : 0 - 5 HPF. The refe rence range was not u sed to interpret th is result as normal/abnormal . BACTERIA (test code = Many Negative A 3148102573) MUCOUS (test code = Moderate Negative LPF A 1805906229) SQ EPITH (test code = HPF 3406447320) Lab Interpretation (test Abnormal code = 65236-8) [facility] WITH [id number] 01:18:00 Test Item Value Reference Range Interpretation Comments WBC (test code = See_Comment L [Automated 7590-2) message] The sy stem which [...] RDW-SD (test code = 44.3 fL 39-49.9 28454-6) RDW-CV (test code = 12.6 % 12-15.5 788-0) PLT (test code = See_Comment [Automated 777-3) message] The sy stem which generated this result transmitted reference range : 166 - 358 10*3/ ?L. The reference r luca was not used to interpret this result as normal/abnormal . MPV (test code = 9.1 fL 9.5-12.9 L 33192-0) NRBC/100 WBC (test See_Comment [Automat ed code = 4515102866) message] The system which generated this result transmitted reference range : 0.0 - 10.0 /100 WBCs. The refer ence range was not u sed to interpret th is result as normal/abnormal . NRBC x10^3 (test code <0.01 See_Comment [Auto mated = 4300362493) message] The s ystem which generated this result transmitted reference range : 10*3/?L. The reference range was not used to interpret this result as normal/abnormal . GRAN MAT (NEUT) % 71.0 % (test code = 770-8) IMM GRAN % (test code 1.70 % = 3108017686) LYMPH % (test code = 16.1 % 736-9) MONO % (test code = 9.8 % 5905-5) EOS % (test code = 1.1 % 713-8) BASO % (test code = 0.3 % 706-2) GRAN MAT x10^3(ANC) 2.47 10*3/uL 1.88-7.09 (test code = 2778734582) IMM GRAN x10^3 (test 0.06 10*3/uL 0-0.06 code = 0804836221) LYMPH x10^3 (test code 0.56 10*3/uL 1.32-3.29 L = 731-0) MONO x10^3 (test code 0.34 10*3/uL 0.33-0.92 = 742-7) EOS x10^3 (test code = 0.04 10*3/uL 0.03-0.39 711-2) BASO x10^3 (test code <0.03 0.01-0.07 = 704-7) Lab Interpretation Abnormal (test code = 88891-7) [facility] CenterTranthonyn [id number] 23:39:00 Test Item Value Reference Range Interpretation Comments TROPONIN I (test 0.005 ng/mL See_Comment [Automated code = 3989246199) message] The system which generated this result [...] ? Lab Interpretation Normal (test code = 57205-8) [facility] CenterBasi Metabolic Panel (NA, K, CL, CO2, GLUCOSE, BUN, CREATININE, CA)2019-06-25 23:27:00 Test Item Value Reference Range Interpretation Comments NA (test code = 138 mmol/L 135-145 7908051415) K (test code = 4.3 mmol/L 3.5-5 2465749915) CL (test code = 103 mmol/L 98-108 9134861344) CO2 TOTAL (test code = 27 mmol/L 23-31 6571872104) AGAP (test code = 2-16 1897756511) BUN (test code = 16 mg/dL 7-23 7694925212) GLUCOSE (test code = 106 mg/dL 70-110 3886164175) CREATININE (test code 0.66 mg/dL 0.5-1.04 = 6822648825) CALCIUM (test code = 9.1 mg/dL 8.6-10.6 2016440771) eGFR Calculation mL/min/1.73m2 (Non-) (test code = 8554378387) eGFR Calculation mL/min/1.73m2 () (test code = 4549042872) KIM (test code = KIM) Association of [...] or abnormalities in imaging tests). [facility] BranchLipase [id number] 23:27:00 Test Item Value Reference Range Interpretation Comments LIPASE (test code = 9036465210) 55 U/L 0-220 Lab Interpretation (test code = Normal 47553-4) [facility] CenterHepatic Function Panel (ALB, T.PRO, BILI T, BU/BC, ALT, AST, ALK PHOS)2019-06-25 23:27:00 Test Item Value Reference Range Interpretation Comments TOTAL BILI (test code = 8991641820) 1.0 mg/dL 0.1-1.1 BILI UNCON (test code = 5643286852) 0.2 mg/dL 0.1-1.1 BILI CONJ (test code = 7894689630) 0.0 mg/dL 0-0.3 T PROTEIN (test code = 7259897622) 7.8 g/dL 6.3-8.2 ALBUMIN (test code = 3973683562) 4.3 g/dL 3.5-5 ALK PHOS (test code = 8193935688) 622 U/L 34-122 H ALTv (test code = 1742-6) 126 U/L 5-35 H AST(SGOT) (test code = 5612626514) 180 U/L 13-40 H Lab Interpretation (test code = Abnormal 01828-7) [facility] CenterCB WITH [id number] 23:23:00 Test Item Value Reference Range Interpretation [...] (test code = 51.3 fL 39-49.9 H 15690-7) RDW-CV (test code = 14.9 % 12-15.5 788-0) PLT (test code = See_Comment [Automated 777-3) message] The sy stem which generated this result transmitted reference range : 166 - 358 10*3/ ?L. The reference r luca was not used to interpret this result as normal/abnormal . MPV (test code = 9.3 fL 9.5-12.9 L 67025-8) NRBC/100 WBC (test See_Comment [Automat ed code = 5653915615) message] The system which generated this result transmitted reference range : 0.0 - 10.0 /100 WBCs. The refer ence range was not u sed to interpret th is result as normal/abnormal . NRBC x10^3 (test code <0.01 See_Comment [Auto mated = 8129528499) message] The s ystem which generated this result transmitted reference range : 10*3/?L. The reference range was not used to interpret this result as normal/abnormal . GRAN MAT (NEUT) % 67.4 % (test code = 770-8) IMM GRAN % (test code 0.60 % = 7402395348) LYMPH % (test code = 20.6 % 736-9) MONO % (test code = 9.4 % 5905-5) EOS % (test code = 1.7 % 713-8) BASO % (test code = 0.3 % 706-2) GRAN MAT x10^3(ANC) 2.43 10*3/uL 1.88-7.09 (test code = 3932727804) IMM GRAN x10^3 (test <0.03 0-0.06 code = 8202049006) LYMPH x10^3 (test code 0.74 10*3/uL 1.32-3.29 L = 731-0) MONO x10^3 (test code 0.34 10*3/uL 0.33-0.92 = 742-7) EOS x10^3 (test code = 0.06 10*3/uL 0.03-0.39 711-2) BASO x10^3 (test code <0.03 0.01-0.07 = 704-7) Lab Interpretation Abnormal (test code = 19908-4) [facility] CenterURINALYSIS2020-03-12 22:51:00 Test Item Value Reference Range Interpretation Comments APPEARANCE (test code = Clear Clear 3015417601) COLOR (test code = Yellow Yellow 5535161303) PH (test code = 4.8-8.0 0974697275) SP GRAVITY (test code = 1.003-1.030 6613310769) GLU U QUAL (test code = Negative Negative 8525210470) BLOOD (test code = Negative Negative 2073757430) KETONES (test code = Negative Negative 0545577238) PROTEIN (test code = Negative Negative 2887-8) UROBILIN (test code = 1.0 mg/dL See_Comment [Auto mated message] 0701707579) The system [employer] generated this result transmit gulshan reference range : 0-1.0 mg/dL. Th e reference range was not used to interpret this result as normal/abnormal . BILIRUBIN (test code = Small Negative A 0081477445) NITRITE (test code = Negative Negative 7006204779) LEUK NICHOLE (test code = Negative Negative 9558387234) RBC/HPF (test code = See_Comment [Autom ated message] 6458599172) The system [employer] generated this result transmit gulshan reference range : 0 - 3 HPF. The refe rence range was not u sed to interpret th is result as normal/abnormal . WBC/HPF (test code = See_Comment [Autom ated message] 9341021551) The system [employer] generated this result transmit gulshan reference range : 0 - 5 HPF. The refe rence range was not u sed to interpret th is result as normal/abnormal . BACTERIA (test code = Negative Negative 0589585515) Ictotest (test code = Negative 6612380330) Lab Interpretation (test Abnormal code = 13223-3) [facility] CenterPregnancy Test, [id number] 22:10:00 Test Item Value Reference Range Interpretation Comments PREG SERUM (test code Negative = 5310865192) KIM (test code = KIM) Less than 10 IU/L. ?If low titer or ectopic is suspected, resubmit specimen in 48-72 hours. [facility] WITH [id number] 22:10:00 Test Item Value Reference Range Interpretation [...] RDW-SD (test code = 49.4 fL 39-49.9 07349-2) RDW-CV (test code = 14.6 % 12-15.5 788-0) PLT (test code = See_Comment [Automated 777-3) message] The sy stem which generated this result transmitted reference range : 166 - 358 10*3/ ?L. The reference r luca was not used to interpret this result as normal/abnormal . MPV (test code = 9.1 fL 9.5-12.9 L 57174-1) NRBC/100 WBC (test See_Comment [Automat ed code = 5913255063) message] The system which generated this result transmitted reference range : 0.0 - 10.0 /100 WBCs. The refer ence range was not u sed to interpret th is result as normal/abnormal . NRBC x10^3 (test code <0.01 See_Comment [Auto mated = 3544456189) message] The s ystem which generated this result transmitted reference range : 10*3/?L. The reference range was not used to interpret this result as normal/abnormal . GRAN MAT (NEUT) % 48.3 % (test code = 770-8) IMM GRAN % (test code 0.30 % = 2415442916) LYMPH % (test code = 38.9 % 736-9) MONO % (test code = 9.8 % 5905-5) EOS % (test code = 2.4 % 713-8) BASO % (test code = 0.3 % 706-2) GRAN MAT x10^3(ANC) 1.78 10*3/uL 1.88-7.09 L (test code = 5441547801) IMM GRAN x10^3 (test <0.03 0-0.06 code = 6195154142) LYMPH x10^3 (test code 1.43 10*3/uL 1.32-3.29 = 731-0) MONO x10^3 (test code 0.36 10*3/uL 0.33-0.92 = 742-7) EOS x10^3 (test code = 0.09 10*3/uL 0.03-0.39 711-2) BASO x10^3 (test code <0.03 0.01-0.07 = 704-7) Lab Interpretation Abnormal (test code = 05198-1) [facility] CenterUrinalysis2020-03-06 20:58:00 Test Item Value Reference Range Interpretation Comments APPEARANCE (test code = Hazy Clear A 5339234786) COLOR (test code = Yellow Yellow 5481655571) PH (test code = 4.8-8.0 0125019405) SP GRAVITY (test code = 1.003-1.030 0611532413) GLU U QUAL (test code = Normal Normal 2195225766) BLOOD (test code = Negative Negative 8585734750) KETONES (test code = Negative Negative 2481866380) PROTEIN (test code = Negative Negative 2887-8) UROBILIN (test code = 4.0 mg/dL Normal A 1900436284) BILIRUBIN (test code = Negative Negative 7417996707) NITRITE (test code = Negative Negative 2587775985) LEUK NICHOLE (test code = Negative Negative 0135051624) RBC/HPF (test code = See_Comment [Autom ated message] 6297794459) The system [employer] generated this result transmit gulshan reference range : 0 - 3 HPF. The refe rence range was not u sed to interpret th is result as normal/abnormal . WBC/HPF (test code = See_Comment [Autom ated message] 0310698348) The system [employer] generated this result transmit gulshan reference range : 0 - 5 HPF. The refe rence range was not u sed to interpret th is result as normal/abnormal . BACTERIA (test code = Many Negative A 1871004164) MUCOUS (test code = Slight Negative LPF A 9044293503) SQ EPITH (test code = HPF 6996722723) HYAL CAST (test code = See_Comment [Aut omated message] 4620279146) The system [employer] generated this result transmit gulshan reference range : <=2 LPF. The refere nce range was not u sed to interpret th is result as normal/abnormal . Lab Interpretation (test Abnormal code = 20536-9) [facility] (NA, K, CL, CO2, GLUCOSE, BUN, CREATININE, CA)2019-06-19 20:51:00 Test Item Value Reference Range Interpretation Comments NA (test code = 141 mmol/L 135-145 1406393633) K (test code = 4.5 mmol/L 3.5-5 9412679085) CL (test code = 107 mmol/L 98-108 6469337479) CO2 TOTAL (test code = 25 mmol/L 23-31 0241138026) AGAP (test code = 2-16 7673110630) BUN (test code = 16 mg/dL 7-23 7977100617) GLUCOSE (test code = 89 mg/dL 70-110 3993303365) CREATININE (test code 0.50 mg/dL 0.5-1.04 = 6837040984) CALCIUM (test code = 9.0 mg/dL 8.6-10.6 7646246421) eGFR Calculation mL/min/1.73m2 (Non-) (test code = 4851758310) eGFR Calculation mL/min/1.73m2 () (test code = 8663490741) KIM (test code = KIM) Association of [...] or urine or abnormalities in imaging tests). [facility] CenterHepatic Function Panel (ALB, T.PRO, BILI T, BU/BC, ALT, AST, ALK PHOS)2019-06-19 20:51:00 Test Item Value Reference Range Interpretation Comments TOTAL BILI (test code = 2352775556) 0.9 mg/dL 0.1-1.1 BILI UNCON (test code = 8413671727) 0.5 mg/dL 0.1-1.1 BILI CONJ (test code = 3875125808) 0.0 mg/dL 0-0.3 T PROTEIN (test code = 5719178003) 8.0 g/dL 6.3-8.2 ALBUMIN (test code = 3779723572) 4.3 g/dL 3.5-5 ALK PHOS (test code = 6006034264) 613 U/L 34-122 H ALTv (test code = 1742-6) 115 U/L 5-35 H AST(SGOT) (test code = 0289746662) 157 U/L 13-40 H Lab Interpretation (test code = Abnormal 65417-5) [facility] CenterLipase [id number] 20:51:00 Test Item Value Reference Range Interpretation Comments LIPASE (test code = 4529968921) 89 U/L 0-220 Lab Interpretation (test code = Normal 63599-8) [facility] CenterCT ABDOMEN PELVIS W [id number] 03:36:50 No acute intra-abdominal abnormality. Hepatosplenomegaly with [...] reviewed this study and agree withthe above report.[facility] CenterComplete Metabolic [id number] 01:38:00 Test Item Value Reference Range Interpretation Comments NA (test code = 141 mmol/L 135-145 6155404882) K (test code = 4.0 mmol/L 3.5-5 1797040315) CL (test code = 105 mmol/L 98-108 7291308633) CO2 TOTAL (test code = 24 mmol/L 23-31 3320256117) AGAP (test code = 2-16 8768836707) BUN (test code = 23 mg/dL 7-23 8984355223) GLUCOSE (test code = 110 mg/dL 70-110 4269673345) CREATININE (test code = 0.68 mg/dL 0.5-1.04 5386814610) TOTAL BILI (test code = 1.0 mg/dL 0.1-1.7 8541198385) CALCIUM (test code = 9.4 mg/dL 8.6-10.6 4702170392) T PROTEIN (test code = 8.1 g/dL 6.3-8.2 3704431539) ALBUMIN (test code = 4.7 g/dL 3.5-5 1251754884) ALK PHOS (test code = 575 U/L 34-122 H 9076311078) ALTv (test code = 112 U/L 5-35 H 1742-6) AST(SGOT) (test code = 112 U/L 13-40 H 4377465702) eGFR Calculation mL/min/1.73m2 (Non-) (test code = 3292288945) eGFR Calculation mL/min/1.73m2 () (test code = 0021012319) KIM (test code = KIM) Association of [...] tests). Lab Interpretation Abnormal (test code = 14559-5) [facility] CenterLipase, [id number] 01:38:00 Test Item Value Reference Range Interpretation Comments LIPASE (test code = 4861207972) 65 U/L 0-220 Lab Interpretation (test code = Normal 17642-7) [facility] CenterUrinalysis2020-02-05 01:30:00 Test Item Value Reference Range Interpretation Comments APPEARANCE (test code = Clear Clear 5438503727) COLOR (test code = Romelia Yellow A 5652698145) PH (test code = 4.8-8.0 1460592697) SP GRAVITY (test code = 1.003-1.030 4629930762) GLU U QUAL (test code = Normal Normal 7847604723) BLOOD (test code = Negative Negative 9078228409) KETONES (test code = Negative Negative 7451048550) PROTEIN (test code = Negative Negative 2887-8) UROBILIN (test code = 2.0 mg/dL Normal A 5683838522) BILIRUBIN (test code = Negative Negative 1089337025) NITRITE (test code = Negative Negative 4456592163) LEUK NICHOLE (test code = Negative Negative 2895880903) RBC/HPF (test code = See_Comment H [Autom ated message] 1246970953) The system [employer] generated this result transmit gulshan reference range : 0 - 3 HPF. The refe rence range was not u sed to interpret th is result as normal/abnormal . WBC/HPF (test code = See_Comment [Autom ated message] 2869594258) The system [employer] generated this result transmit gulshan reference range : 0 - 5 HPF. The refe rence range was not u sed to interpret th is result as normal/abnormal . BACTERIA (test code = Few Negative A 7514227184) MUCOUS (test code = Slight Negative LPF A 4850156636) SQ EPITH (test code = HPF 4407300700) Lab Interpretation (test Abnormal code = 09047-1) [facility] CenterCBC WITH [id number] 01:24:00 Test Item Value Reference Range Interpretation [...] RDW-SD (test code = 49.0 fL 39-49.9 86247-6) RDW-CV (test code = 14.3 % 12-15.5 788-0) PLT (test code = See_Comment [Automated 777-3) message] The sy stem which generated this result transmitted reference range : 166 - 358 10*3/ ?L. The reference r luca was not used to interpret this result as normal/abnormal . MPV (test code = 10.2 fL 9.5-12.9 59371-4) NRBC/100 WBC (test See_Comment [Automat ed code = 7828121143) message] The system which generated this result transmitted reference range : 0.0 - 10.0 /100 WBCs. The refer ence range was not u sed to interpret th is result as normal/abnormal . NRBC x10^3 (test code <0.01 See_Comment [Auto mated = 5820208496) message] The s ystem which generated this result transmitted reference range : 10*3/?L. The reference range was not used to interpret this result as normal/abnormal . GRAN MAT (NEUT) % 65.5 % (test code = 770-8) IMM GRAN % (test code 0.50 % = 7924179245) LYMPH % (test code = 24.7 % 736-9) MONO % (test code = 8.6 % 5905-5) EOS % (test code = 0.5 % 713-8) BASO % (test code = 0.2 % 706-2) GRAN MAT x10^3(ANC) 4.37 10*3/uL 1.88-7.09 (test code = 8752069826) IMM GRAN x10^3 (test 0.03 10*3/uL 0-0.06 code = 7757080362) LYMPH x10^3 (test code 1.64 10*3/uL 1.32-3.29 = 731-0) MONO x10^3 (test code 0.57 10*3/uL 0.33-0.92 = 742-7) EOS x10^3 (test code = 0.03 10*3/uL 0.03-0.39 711-2) BASO x10^3 (test code <0.03 0.01-0.07 = 704-7) Lab Interpretation Abnormal (test code = 18028-8) [facility] CenterCT ANKLE RIGHT WO [id number] 16:39:33 Distal tibial spiral fracture with entrance [...] is seen. The ankle mortise is anatomic. [facility], Radiant Results Inft User - 12/05/2018 [...] the anterolateral tibialplafond without tibial plafond articular incongruity.[facility] CenterXR TIBIA FIBULA 2 VW [id number] 20:06:10 Comminuted mildly displaced distal tibia fracture [...] of the intertarsal and TMT joints isidentified. [facility], Radiant Results Inft User - 12/01/2018 [...] to the tibialplafond.Nondisplaced proximal fibular shaft fracture. [facility] CenterXR FOOT 3+ VW [id number] 20:06:10 Comminuted mildly displaced distal tibia fracture [...] extending to the tibialplafond.Nondisplaced proximal fibular shaft fracture.[facility] CenterURINE [id number] 21:51:00 Test Item Value Reference Range Interpretation Comments URINE CULTURE (test 10,000 - 100,000 CFU/mL code = 630-4) mixed aerobic organisms - suggests endogenous microbial contamination [facility] CenterHELICOBACTER PYLORI AB, [id number] 14:31:00 Test Item Value Reference Range Interpretation Comments Helicobacter pylori IgG Negative Negative Antibody (test code = 2441139819) KIM (test code = KIM) Negative - No H. pylori IgG antibody detected.Positive - Indicates presence of detectable IgG antibodies. Does not distinguish between past or current infection, or between active infection and colonization.Invalid - A second sample should be sent. Lab Interpretation (test Normal code = 09443-6) [facility] CenterBasic Metabolic Panel (NA, K, CL, CO2, GLUCOSE, BUN, CREATININE, CA)2018-11-16 10:15:00 Test Item Value Reference Range Interpretation Comments NA (test code = 140 mmol/L 135-145 5574900654) K (test code = 3.9 mmol/L 3.5-5 0911931062) CL (test code = 105 mmol/L 98-108 5513752397) CO2 TOTAL (test code = 30 mmol/L 23-31 4164368668) AGAP (test code = 2-16 2431433151) BUN (test code = 16 mg/dL 7-23 3997643577) GLUCOSE (test code = 104 mg/dL 70-110 8399341634) CREATININE (test code 0.52 mg/dL 0.5-1.04 = 4642139048) CALCIUM (test code = 8.6 mg/dL 8.6-10.6 0340903218) eGFR Calculation mL/min/1.73m2 (Non-) (test code = 9510448347) eGFR Calculation mL/min/1.73m2 () (test code = 5511724032) KIM (test code = KIM) Association of [...] urine or abnormalities in imaging tests). [facility] WITH [id number] 09:47:00 Test Item Value Reference Range Interpretation Comments WBC (test code = See_Comment [Automated 0390-2) message] The sy stem which generated this result transmitted reference range : 4.30 - 11.10 10*3/?L. The reference range was not used to interpret this result as normal/abnormal . RBC (test code = See_Comment L [Automated 019-8) message] The sy stem which generated this [...] RDW-SD (test code = 47.8 fL 39-49.9 84033-7) RDW-CV (test code = 13.5 % 12-15.5 788-0) PLT (test code = See_Comment [Automated 777-3) message] The sy stem which generated this result transmitted reference range : 166 - 358 10*3/ ?L. The reference r luca was not used to interpret this result as normal/abnormal . MPV (test code = 9.9 fL 9.5-12.9 15498-3) NRBC/100 WBC (test See_Comment [Automat ed code = 6064866530) message] The system which generated this result transmitted reference range : 0.0 - 10.0 /100 WBCs. The refer ence range was not u sed to interpret th is result as normal/abnormal . NRBC x10^3 (test code <0.01 See_Comment [Auto mated = 8470983025) message] The s ystem which generated this result transmitted reference range : 10*3/?L. The reference range was not used to interpret this result as normal/abnormal . GRAN MAT (NEUT) % 56.8 % (test code = 770-8) IMM GRAN % (test code 0.40 % = 0571883703) LYMPH % (test code = 27.2 % 736-9) MONO % (test code = 9.1 % 5905-5) EOS % (test code = 5.8 % 713-8) BASO % (test code = 0.7 % 706-2) GRAN MAT x10^3(ANC) 2.55 10*3/uL 1.88-7.09 (test code = 7015790755) IMM GRAN x10^3 (test <0.03 0-0.06 code = 8276968212) LYMPH x10^3 (test code 1.22 10*3/uL 1.32-3.29 L = 731-0) MONO x10^3 (test code 0.41 10*3/uL 0.33-0.92 = 742-7) EOS x10^3 (test code = 0.26 10*3/uL 0.03-0.39 711-2) BASO x10^3 (test code 0.03 10*3/uL 0.01-0.07 = 704-7) Lab Interpretation Abnormal (test code = 84812-0) [facility] CenterGLYCOSYLATED HEMOGLOBIN (A1C)2018-11-16 04:33:00 Test Item [...] Indicated Lab Interpretation Normal (test code = 21255-9) [facility] CenterHCV [id number] 02:23:00 Test Item Value Reference Range Interpretation Comments HCV Semi-Quantitative (test code = 45164-1) [facility] SURFACE [id number] 02:23:00 Test Item Value Reference Range Interpretation Comments HBsAB (test code = Negative 4120752316) HBsAb mIU/mL Semi-Quantitative (test code = 8187240615) KIM (test code = Interpretation:?Hepatitis KIM) B Surface Antibody? ? Negative - Patient is considered to be not immune to infection with HBV.? Positive - Anti-HBs detected at greater than or equal to 12 mIU/mL.?Patient is considered to be immune to infection with HBV.? [facility] A VIRUS ANTIBODY [id number] 02:11:00 Test Item Value Reference Range Interpretation Comments HAVM Semi-Quantitative (test code = 74305-4) KIM (test code = HAVAb IgM Interpretative KIM) Information:Reactive greater than or equal to 1.2Biotin has been reported to cause a negative bias, interpret results relative to patient's use of biotin. [facility] CenterHEPATITIS B CORE ANTIBODY [id number] 02:11:00 Test Item Value Reference Range Interpretation Comments HBCM Semi-Quantitative (test code = 83486-4) KIM (test code = Biotin has been reported KIM) to cause a negative bias, interpret results relative to patient's use of biotin. [facility] CenterABORH [id number] 00:49:22 Test Item Value Reference Range Interpretation Comments ABO & RH (test code O Positive Performe d at [facility] = 20) Laboratory Serv [facility] Blood Bank3 [facility] [address]Cpuv Free: [phone] A No. [id number] [facility] CenterUrinalysis2019-08-04 00:29:00 Test Item Value Reference Range Interpretation Comments APPEARANCE (test code = Clear Clear 4505532860) COLOR (test code = Yellow Yellow 7721384311) PH (test code = 4.8-8.0 2850901200) SP GRAVITY (test code = 1.003-1.030 H 3058900145) GLU U QUAL (test code = Normal Normal 5368216187) BLOOD (test code = Negative Negative 5804041114) KETONES (test code = Negative Negative 9891194784) PROTEIN (test code = Negative Negative 2887-8) UROBILIN (test code = 4.0 mg/dL Normal A 6880078244) BILIRUBIN (test code = Negative Negative 7822529078) NITRITE (test code = Negative Negative 9308193140) LEUK NICHOLE (test code = Negative Negative 4845315101) RBC/HPF (test code = See_Comment H [Autom ated message] 8303945163) The system [employer] generated this result transmit gulshan reference range : 0 - 3 HPF. The refe rence range was not u sed to interpret th is result as normal/abnormal . WBC/HPF (test code = See_Comment [Autom ated message] 7217959250) The system [employer] generated this result transmit gulshan reference range : 0 - 5 HPF. The refe rence range was not u sed to interpret th is result as normal/abnormal . BACTERIA (test code = Negative Negative 6697323237) SQ EPITH (test code = See_Comment [Auto mated message] 8877100185) The system [employer] generated this result transmit gulshan reference range : <=2 HPF. The refere nce range was not u sed to interpret th is result as normal/abnormal . Lab Interpretation (test Abnormal code = 05549-5) [facility] CenterType and Screen - ONCE [id number] 00:15:31 Test Item Value Reference Range Interpretation Comments ABO & RH (test code O POSITIVE Performe d at [facility] = 20) Laboratory Serv [facility]3 [address] [facility] s [address]Lfvb Free: [phone] A No. [id number] IAT (test code = Negative Performed a t [facility] 1185) Laboratory Serv [facility]3 [address] [facility] s [address]Fmzb Free: [phone] A No. [id number] [facility] CenterTROPONIN [id number] 00:04:00 Test Item Value Reference Range Interpretation Comments TROPONIN I (test 0.002 ng/mL See_Comment [Automated code = 1969329137) message] The system which generated this result [...] ? Lab Interpretation Normal (test code = 38250-1) [facility] Medical CenterLIPID PANEL (80669)(TOTAL CHOLESTEROL, TRIGLYCERIDES, HDL)2018-11-15 23:58:00 Test Item Value Reference Range Interpretation Comments CHOL (test code = 289 mg/dL 120-200 H 7776662443) HDL (test code = 97 mg/dL >50 5284027329) HDLC RATIO (test code = See_Comment [Au tomated message] 6850594501) The system [employer] generated this result transmit gulshan reference range : <=4.5. The refe rence range was not u sed to interpret th is result as normal/abnormal . TRIG (test code = 52 mg/dL 30-170 3725902393) LDL CHOL (test code = 182 mg/dL See_Comment H [Auto mated message] 24372-2) The system [employer] generated this result transmit gulshan reference range : <=160. The refe rence range was not u sed to interpret th is result as normal/abnormal . VLDL (test code = 10 mg/dL 5-60 7099825945) Lab Interpretation (test Abnormal code = 68404-5) [facility] CenterCT ABDOMEN PELVIS W [id number] 17:09:23 1.?No acute intra-abdominal or pelvic abnormality. [...] No acute intra-abdominal or pelvic abnormality.2. Splenomegaly, unchanged.[facility] CenterACETAMINOPHEN 2018-11-15 16:52:00 Test Item Value Reference Range Interpretation Comments ACETAMINOP (test code = <10.0 10-30 L 7309804637) KIM (test code = KIM) Toxic: Greater than 200 ug/mL @ 4 hour post ingestion or greater than 50 ug/mL @ 12 hour post ingestion Lab Interpretation (test Abnormal code = 29038-7) [facility] CenterXR CHEST 1 [id number] 15:23:59 1.?No acute cardiopulmonary abnormality.* * * [...] Bones: No acute osseous abnormality is seen. [facility], Radiant Results Inft User - 11/15/2018 [...] osseous abnormality is seen.IMPRESSION1. No acute cardiopulmonary abnormality.[facility] CenterTroponin [id number] 15:19:00 Test Item Value Reference Range Interpretation Comments TROPONIN I (test 0.014 ng/mL See_Comment [Automated code = 6596655750) message] The system which generated this result [...] ? Lab Interpretation Normal (test code = 43818-9) [facility] CenterN-TERMINAL [id number] 15:16:00 Test Item Value Reference Range Interpretation Comments NT-proBNP (test code 29 pg/mL See_Comment [Autom ated = 6880190501) message] The system which generated this result transmitted reference range : <=125. The reference range was not used to interpret this result as normal/abnormal . KIM (test code = KIM) Biotin has been reported to cause a negative bias, interpret results relative to patient's use of biotin. Lab Interpretation Normal (test code = 48104-4) [facility] Medical CenterBasi Metabolic Panel (NA, K, CL, CO2, GLUCOSE, BUN, CREATININE, CA)2018-11-15 15:07:00 Test Item Value Reference Range Interpretation Comments NA (test code = 142 mmol/L 135-145 1805377494) K (test code = 5.1 mmol/L 3.5-5 H 0299926742) CL (test code = 107 mmol/L 98-108 3939961312) CO2 TOTAL (test code = 26 mmol/L 23-31 1969604947) AGAP (test code = 2-16 1387217417) BUN (test code = 22 mg/dL 7-23 1314030960) GLUCOSE (test code = 93 mg/dL 70-110 3452997341) CREATININE (test code = 0.47 mg/dL 0.5-1.04 L 6083759406) CALCIUM (test code = 8.9 mg/dL 8.6-10.6 6625054831) eGFR Calculation mL/min/1.73m2 (Non-) (test code = 4989015521) eGFR Calculation mL/min/1.73m2 () (test code = 9569922073) KIM (test code = KIM) Association of [...] tests). Lab Interpretation Abnormal (test code = 67621-4) [facility] CenterHepatic Function Panel (ALB, T.PRO, BILI T, BU/BC, ALT, AST, ALK PHOS)2018-11-15 15:07:00 Test Item Value Reference Range Interpretation Comments TOTAL BILI (test code = 6170489012) 1.1 mg/dL 0.1-1.1 BILI UNCON (test code = 0756186991) 0.4 mg/dL 0.1-1.1 BILI CONJ (test code = 1588058255) 0.0 mg/dL 0-0.3 T PROTEIN (test code = 6636042606) 8.2 g/dL 6.3-8.2 ALBUMIN (test code = 9574447020) 4.2 g/dL 3.5-5 ALK PHOS (test code = 3063731618) 723 U/L 34-122 H ALT(SGPT) (test code = 1991159516) 196 U/L 9-51 H AST(SGOT) (test code = 3233802064) 194 U/L 13-40 H Lab Interpretation (test code = Abnormal 36655-4) [facility] CenterLipase [id number] 15:07:00 Test Item Value Reference Range Interpretation Comments LIPASE (test code = 4257788844) 185 U/L 0-220 Lab Interpretation (test code = Normal 30026-8) [facility] CenteraPTT2019-08-03 14:58:00 Test Item Value Reference Range Interpretation Comments APTT Patient (test See_Comment [Automat ed code = 3173-2) message] The system which generated this result transmitted reference range : 23 - 38 Seconds . The reference range was not used to interpr et this result as normal/abnormal . KIM (test code = KIM) The [facility] patient population mean normal value for aPTT is 30 seconds. Lab Interpretation Normal (test code = 41025-1) [facility] CenterProthrombin Time (PT) / [id number] 14:55:00 Test Item Value Reference Range Interpretation [...] tions. Lab Interpretation (test Normal code = 39444-9) [facility] CenterCB WITH [id number] 14:47:00 Test Item Value Reference Range Interpretation Comments WBC (test code = See_Comment [Automated 8690-2) message] The sy stem which generated this result transmitted reference range : 4.30 - 11.10 10*3/?L. The reference range was not used to interpret this result as normal/abnormal . RBC (test code = See_Comment L [Automated 679-8) message] The sy stem which generated this [...] RDW-SD (test code = 47.1 fL 39-49.9 90750-1) RDW-CV (test code = 13.4 % 12-15.5 788-0) PLT (test code = See_Comment [Automated 777-3) message] The sy stem which generated this result transmitted reference range : 166 - 358 10*3/ ?L. The reference r luca was not used to interpret this result as normal/abnormal . MPV (test code = 10.0 fL 9.5-12.9 23088-3) NRBC/100 WBC (test See_Comment [Automat ed code = 4715356615) message] The system which generated this result transmitted reference range : 0.0 - 10.0 /100 WBCs. The refer ence range was not u sed to interpret th is result as normal/abnormal . NRBC x10^3 (test code <0.01 See_Comment [Auto mated = 7351465658) message] The s ystem which generated this result transmitted reference range : 10*3/?L. The reference range was not used to interpret this result as normal/abnormal . GRAN MAT (NEUT) % 54.5 % (test code = 770-8) IMM GRAN % (test code 0.40 % = 1396442832) LYMPH % (test code = 26.5 % 736-9) MONO % (test code = 10.5 % 5905-5) EOS % (test code = 7.4 % 713-8) BASO % (test code = 0.7 % 706-2) GRAN MAT x10^3(ANC) 2.43 10*3/uL 1.88-7.09 (test code = 6060335838) IMM GRAN x10^3 (test <0.03 0-0.06 code = 3725108068) LYMPH x10^3 (test code 1.18 10*3/uL 1.32-3.29 L = 731-0) MONO x10^3 (test code 0.47 10*3/uL 0.33-0.92 = 742-7) EOS x10^3 (test code = 0.33 10*3/uL 0.03-0.39 711-2) BASO x10^3 (test code 0.03 10*3/uL 0.01-0.07 = 704-7) Lab Interpretation Abnormal (test code = 53099-6) [facility] CenterCulture, [id number] 15:57:00 Test Item Value Reference Range Interpretation Comments Culture, Urine (test NF code = URC) Culture, Urine (test 10 NSF code = URC1) * This is an EDITED result. * A prior r esult that was reported as final has been changed. 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 Portaltracts have nonsuppurative duct damage, with distorted ducts surroundedand infiltrated bysmall mature lymphocytes. The portal tracts also have inflammatory infiltration composed ofepithelioid histiocytes, plasma cells, and few neutrophils. Pathologist:Kelvin Conway Entered by:07/09/17 - 143 MAY PROCEDURES: 77052, 67642/4 Patient: ZEKE ALEMAN Re07/03/17Loc: T4-A MR#: [id number] CONTINUED ON NEXT PAGE Dis: 07/09/17ta: DIS IN [address] [address] Laboratory Printed: 07/09/[address] [place] [address] DAEMPathology Page: 2 Patient: ZEKE ALEMAN [id number] (Continued) GROSS DESCRIPTION A. LIVER BIOPSY LEFT [...] DANII SHAHID Entered by: 07/08/17 - [address] [facility].YGP MICROSCOPIC DESCRIPTION A microscopic examination was performed to arrive at the diagnostic conclusion reported. Signed (Electronically Signed) Kelvin 07/09/17 Patient: ZEKE ALEMAN Re07/03/17Loc: T4-A MR#: [id number] END OF REPORT Dis: 07/09/17ta: DIS [id number] 05:13:00 Test Item Value Reference Range Interpretation [...] U/L 8-55 H = ALT) Reference Lab [id number] 04:14:00 Test Item Value Reference Range Interpretation Comments Reference Lab 10 U/mL 0-35 Laurent ECLIA Testing (test code methodolo gyPerformed at: HD = CA199) - [facility] [address] [facility], [place] [id number] Di aimee: Chico Suero MD, Phone : [phone] Reference Lab [id number] 16:14:00 Test Item Value Reference Range Interpretation Comments Reference Lab Testing 128.5 Units 0.0-20.0 H Negat kourtney 0.0 - 20.0 (test code = MARLON) Equivocal 20.1 - 24.9 Positive >24.9Mitochondr ial (M2) Antibodies are found in 90-96% ofpatients with primary biliary cirrhosis.Perfo rmed at: BN - [facility] [address] [place], [place] [id number] Director: Pj Rider MD, [facility] ne: [phone] Reference Lab [id number] 16:14:00 Test Item Value Reference Range Interpretation [...] testing of p ositive sera with both AK-3 and MPO-ANCA enzyme immunoassays. A s many as 5% serumsamples are positive only b y EIA. Ref. AM J Clin Xrezut2019;111: 507-513. Reference Lab <1:20 titer Neg:<1:20 The atypical p ANCA pattern Testing (test has been obser chelita in code = ATANCA) asignificant percentage of patients with u lcerative colitis,primary sclerosing cholangitis and autoimmune hepatitis.Perfo rmed at: BN - [facility] [address] [place], [place] [id number] Di aimee: Chester ramírez MD, Phone: [phone] [id number] 05:12:00 Test Item Value Reference Range Interpretation [...] 8-55 H code = ALT) Reference Lab [id number] 22:07:00 Test Item Value Reference Range Interpretation Comments Reference Lab Testing 785 IU/L 39-117 H (test code = ISOALKT) Reference Lab Testing 25 % 14-68 (test code = ISOALKBT) Reference Lab Testing 74 % 18-85 (test code = ISOALKLT) Reference Lab Testing 1 % 0-18 Perfor med at: HD - (test code = ISOALKIT) [facility] [address] [id number] Director: Chico Suero MD, Phone: [phone] at: [facility] [id number] Di aimee: Chester ramírez MD, Phone: [phone] [id number] 11:48:00 Test Item Value Reference Range Interpretation [...] code = ALT) 92 U/L 8-55 H [id number] 06:08:00 Test Item Value Reference Range Interpretation [...] 8.5 mg/dL 7.8-10.44 N code = CA) [id number] 06:06:00 Test Item Value Reference Range Interpretation [...] code = ALT) 129 U/L 8-55 H [id number] 05:57:00 Test Item Value Reference Range Interpretation [...] code = BASO#) 0.0 thou/uL 0.0-0.2 N [id number] 05:55:00 Test Item Value Reference Range Interpretation Comments Coagulation (test 13.5 SEC 12.0-14.7 N code = PT-T) Coagulation (test 1.0 ATTE NTION: READ code = INR) CAREFULLY-- The recommended the rapeutic ranges for oral anticoagulanttr eatments are: ------ Low Inte nsity: 1.5 - 2.0 Moderate In tensity: 2.0 - 3.0 High Inte nsity (1): 2.5 - 3.5 High Inte nsity (2): 3.0 - 4.0 CRITICAL: > 4.0 Anticoagulant? [id number] 05:36:00 Test Item Value Reference Range Interpretation [...] 8.9 mg/dL 7.8-10.44 N code = CA) [id number] 05:33:00 Test Item Value Reference Range Interpretation [...] code = ALT) 160 U/L 8-55 H [id number] 05:28:00 Test Item Value Reference Range Interpretation [...] 0.1 thou/uL 0.0-0.2 N Chemistry - Elizabeth Ooomtyd5947-18-20 13:02:00 Test Item Value Reference Range Interpretation [...] AB Elizabeth Package Inserts - Directions forU seJune,August 02, [employer] ic. Lhizvbjnu3218-27-27 05:00:00 Test Item Value Reference Range Interpretation [...] code = ALT) 144 U/L 8-55 H [id number] 04:50:00 Test Item Value Reference Range Interpretation [...] 8.4 mg/dL 7.8-10.44 N code = CA) [id number] 04:39:00 Test Item Value Reference Range Interpretation [...] code = BASO#) 0.0 thou/uL 0.0-0.2 N [id number] 17:07:00 Test Item Value Reference Range Interpretation Comments Chemistry (test code = IGG) 1032.00 mg/dL 552-1631 N Toppjdwie2805-51-92 17:07:00 Test Item Value Reference Range Interpretation Comments Chemistry (test code = IGM) 215.00 mg/dL 33-293 N Yoxhbcksgr5277-17-64 00:50:00 Test Item Value Reference Range Interpretation [...] UABLD) Urine Source: Urine Clean CatchChemistry - [id number] 00:25:00 Test Item Value Reference Range Interpretation Comments Chemistry - Specials (test Non-Reactive NonReactive code = THEPAIGM) Chemistry - Specials (test Non-Reactive S/CO NonReactive code = THBSAG) Chemistry - Specials (test Non-Reactive NonReactive code = INTHBCM) Chemistry - Specials (test Non-Reactive NonReactive code = INTHEPC) [id number] 22:12:00 Test Item Value Reference Range Interpretation [...] code 196 U/L 8-55 H = ALT) [id number] 22:12:00 Test Item Value Reference Range Interpretation Comments Chemistry (test code = LIP) 22 U/L 8-78 N [id number] 21:50:00 Test Item Value Reference Range Interpretation [...] code = BASO#) 0.1 thou/uL 0.0-0.2 N Yxxmwdsjl3514-04-21 22:49:00 Test Item Value Reference Range Interpretation [...] 78 U/L 8-55 H code = ALT) [id number] 22:49:00 Test Item Value Reference Range Interpretation Comments Chemistry (test code = LIP) 12 U/L 8-78 N [id number] 22:24:00 Test Item Value Reference Range Interpretation [...] code = BASO#) 0.0 thou/uL 0.0-0.2 N [id number] 22:00:00 Test Item Value Reference Range Interpretation [...] UABLD) Negative Negative Urine Source: Urine Clean FpkizAcjbncdz2802-69-26 09:28:00 Test Item Value Reference Range Interpretation Comments Accuchek (test code = ACU) 99 mg/dL 70-110 N Zwchevwzbw4819-40-04 09:14:00 Test Item Value Reference Range Interpretation [...] UABLD) Negative Negative Urine Source: Urine Clean [id number] 21:28:00 Test Item Value Reference Range Interpretation [...] UABLD) Negative Negative Urine Source: Urine Clean [id number] 21:09:00 Test Item Value Reference Range Interpretation [...] 95 U/L 8-55 H code = ALT) [id number] 21:09:00 Test Item Value Reference Range Interpretation Comments Chemistry (test code = LIP) 39 U/L 8-78 N [id number] 20:49:00 Test Item Value Reference Range Interpretation [...] code = BASO#) 0.0 thou/uL 0.0-0.2 N [id number] 21:34:00 Test Item Value Reference Range Interpretation [...] NotDetected (test code = PPX) Toxicology The MedTox Pro file-V Panel (test code = for Qualitative Drugs MTCUTOFF) ofAbuse assays are for presumptive scr eening testing only.Th e drug class and detec tion limits [...] held fortwo weeks. Urine Source: Urine Clean [id number] 19:17:00 Test Item Value Reference Range Interpretation [...] = UABLD) Negative Negative Urine Source: Urine [id number] 18:48:00 Test Item Value Reference Range Interpretation [...] code 84 U/L 8-55 H = ALT) [id number] 18:48:00 Test Item Value Reference Range Interpretation Comments Chemistry (test code = JORGE) 53.0 U/L 25-125 N [id number] 18:48:00 Test Item Value Reference Range Interpretation Comments Chemistry (test code = LIP) 10 U/L 8-78 N [id number] 18:19:00 Test Item Value Reference Range Interpretation [...] = BASO#) 0.1 thou/uL 0.0-0.2 N Culture, [id number] 10:22:00 Test Item Value Reference Range Interpretation Comments Culture, Urine (test code = URC) NF N Culture, Urine (test code = URC1) 10 MSF N [id number] 17:38:00 Test Item Value Reference Range Interpretation Comments Chemistry (test code = PHOS) 2.9 mg/dL 2.3-4.7 N [id number] 17:04:00 Test Item Value Reference Range Interpretation [...] H = ALT) Chemistry - BNP, HgbA1c, [id number] 17:04:00 Test Item Value Reference Range Interpretation Comments Chemistry - BNP, 4.9 % 4.0-6.0 N Therapeutic goals for glycemic HgbA1c, PTHi (test control ( ADA)Adults:- Goal of code = CGOG1BL) therapy: Les s than 7.0% HbA1c- Action suggeste d: Greater than 8.0% ImT2eCkrck tric patients:- Toddlers and pr eschoolers: Less than 8.5% (but Greater than 7.5%)- Katelynn ool age (6-12 years): Less th an 8%- Adolescents and young adults (13-19 years): Less than 7.5%Diagnosing diabetes (ADA)- HbA1c: Greater than or equal to 6.5% Values of 5.7 - 6.4% indicate HIGH r isk for developing DiabetesInterna tional Expert Committee Repor t on the Role of the F8PMsuqp in the Diagnosis of Di abetes. Diabetes Care 2009July;32(7): 1327-1334ADA, Diagnosis class ification of diabetes [facility].Diabetes Care 2010; 33 S uppl 1:S62 [id number] 16:59:00 Test Item Value Reference Range Interpretation Comments Chemistry (test code = CRP) 1.16 mg/dL = or < 0.5 H What test does the doctor want? C-REACTIVE PROTEIN (CRP)[id number] 16:53:00 Test Item Value Reference Range Interpretation [...] HPF None Seen Urine Source: Urine Clean JuaqwNmrqaqjlru2734-15-59 16:46:00 Test Item Value Reference Range Interpretation [...] code = BASO#) 0.1 thou/uL 0.0-0.2 N [id number] 21:59:00 Test Item Value Reference Range Interpretation [...] Urine Clean CatchSepsis - Lactic Acid >2 Qqxi2871 23:59:00 Test Item Value Reference Range Interpretation Comments Sepsis - Lactic Additional Lactate testin g will be Acid >2 Rflx performed in 3 hrs (test code = according to e NREHR1C) SepsisProtocol. [id number] 21:12:00 Test Item Value Reference Range Interpretation Comments Chemistry (test code = JORGE) 59.0 U/L 25-125 N [id number] 20:59:00 Test Item Value Reference Range Interpretation [...] 87 U/L 8-55 H code = ALT) [id number] 20:59:00 Test Item Value Reference Range Interpretation Comments Chemistry (test code = LIP) 32 U/L 8-78 N Chemistry - [id number] 20:59:00 Test Item Value Reference Range Interpretation Comments Chemistry - Lactate (test code = 2.1 mmol/L 0.5-2.2 N LACTSEP-T) [id number] 20:43:00 Test Item Value Reference Range Interpretation [...] = UABLD) Negative Negative Urine Source: Urine [id number] 20:37:00 Test Item Value Reference Range Interpretation [...]
[2022-02-01] MEDS ORDERED: MORPHINE 4 MG/ML SYR ONE (23:35)
[2022-02-01] MEDS ORDERED: ONDANSETRON 4 MG (ODT) TAB ONE (23:36)
--- NOTE | 2022-02-02 00:39 | ER ---
Nurse's Notes [facility] Name: Yessenia Aleman Age: 61 yrs Sex: Female : 1960 Arrival Date: 02/01/2022 Time: 20:58 Bed 2 Private MD: Diagnosis: Pain in left hip Presentation: 02/01 21:08 Chief complaint: Patient states: [facility] ER last week told her she had a fractured pelvis jh5 and she states she is in so much when she walks. Discharged with no meds apparently and referred to orthopedist. "I been taken the tylenols nd ibuprophamine and nothin helpin me". Coronavirus screen: Vaccine status: Patient reports receiving the 2nd dose of the covid vaccine. Client denies travel out of the [place] in the last 14 days. Ebola Screen: Patient negative for fever greater than or equal to 101.5 degrees Fahrenheit, and additional compatible Ebola Virus Disease symptoms Patient denies exposure to infectious person. Patient denies travel to an Ebola-affected area in the 21 days before illness onset. Initial Sepsis Screen: Does the patient meet any 2 criteria? No. Patient's initial sepsis screen is negative. Does the patient have a suspected source of infection? No. Patient's initial sepsis screen is negative. Risk Assessment: Do you want to hurt yourself or someone else? Patient reports no desire to harm self or others. Onset of symptoms was January 25, 2022. 21:08 Method Of Arrival: Ambulatory [facility] 21:08 Acuity: OHLLI 3 jh5 Triage Assessment: 21:12 General: Appears uncomfortable, obese, well groomed, well developed, Behavior is calm, 5 cooperative, appropriate for age. Pain: Complains of pain in pelvis. Musculoskeletal: Circulation, motion, and sensation intact. Capillary refill < 3 seconds. Historical: - PMHx: 21:12 Anxiety; Arthritis; biliary chirrosis; biliary disease; Cirrhosis; Hypertension; jh5 Pancreatitis; - PSHx: 21:12 Appendectomy; Biliary stent removal; Biliary stents; Cholecystectomy; jh5 - Immunization history:: Adult Immunizations up to date. - Social history:: Smoking status: Patient denies any tobacco usage or history of. Screenin:46 Abuse screen: Denies threats or abuse. Denies injuries from another. Nutritional ha1 screening: No deficits noted. Tuberculosis screening: No symptoms or risk factors identified. Fall Risk None identified. Assessment: 23:10 General: Appears uncomfortable, Behavior is calm, cooperative. Pain: Complains of pain ha1 in bilateral legs Pain currently is 10 out of 10 on a pain scale. Quality of pain is described as throbbing. Neuro: Level of Consciousness is awake, alert, obeys commands, Oriented to person, place, time, situation. Cardiovascular: Patient's skin is warm and dry. Respiratory: Airway is patent Trachea midline Respiratory effort is even, unlabored, Respiratory pattern is regular, symmetrical. Musculoskeletal: Circulation, motion, and sensation intact. Range of motion: intact in all extremities. 02/02 01:05 Reassessment: Patient and/or family updated on plan of care and expected duration. Pain ha1 level reassessed. Patient is alert, oriented x 3, equal unlabored respirations, skin warm/dry/pink. Vital Signs: 02/01 21:08 BP 156 / 104; Pulse 86; Resp 18; Temp 98.6; Weight 72.57 kg; Height 5 ft. 0 in. (152.40 jh5 cm); Pain 01/22; 23:20 BP 166 / 88; Pulse 86; Resp 18; Pulse Ox 98% on R/A; ha1 02/02 01:05 BP 163 / 89; Pulse 86; Resp 18 S; Pulse Ox 100% on R/A; ha1 02/01 21:08 Body Mass Index 31.25 (72.57 kg, 152.40 cm) jh5 ED Course: 02/01 20:58 Patient arrived in ED. dt4 21:12 Triage completed. jh5 21:12 Arm band placed on right wrist. jh5 21:25 Barbie Cruz MD is Attending Physician. sd2 23:22 Lorena Mata, LUCIUS is Primary Nurse. ha1 02/02 00:38 Eagle Dunaway MD is Referral Physician. sd2 00:38 Iron Brown MD is Referral Physician. sd2 01:06 No provider procedures requiring assistance completed. Patient did not have IV access ha1 during this emergency room visit. 01:07 Allergy band placed. Bed in low position. Call light in reach. Side rails up X 1. ha1 Administered Medications: 02/01 23:43 Drug: morphine 5 mg Route: IM; Site: right vastus lateralis; ha1 02/02 01:05 Follow up: Response: No adverse reaction; Pain is unchanged, physician notified; RASS: ha1 Alert and Calm (0) 02/01 23:43 Drug: Ondansetron 4 mg Route: PO; ha1 02/02 01:04 Follow up: Response: No adverse reaction ha1 00:54 Drug: Methocarbamol 1000 mg Route: PO; ha1 01:05 Follow up: Response: No adverse reaction ha1 Medication: 01:07 VIS not applicable for this client. ha1 Outcome: 00:38 Discharge ordered by . sterling2 01:07 Discharged to home ambulatory. ha1 01:07 Condition: stable 01:07 Discharge instructions given to patient, Instructed on discharge instructions, follow up and referral plans. medication usage, Demonstrated understanding of instructions, follow-up care, medications, Prescriptions given X 1. 01:07 Patient left the ED. ha1 Signatures: Yulia Weber RN RN jh5 Barbie Cruz MD MD sd2 Lorena Mata RN RN ha1 Lizz Recio dt4
--- NOTE | 2022-02-02 00:39 | EDPHYS ---
Physician Documentation [facility] Name: Yessenia Aleman Age: 61 yrs Sex: Female : 1960 Arrival Date: 02/01/2022 Time: 20:58 Bed 2 Private MD: ED Physician Barbie Cruz HPI: 02/01 23:18 This 61 yrs old Female presents to ER via Ambulatory with complaints of Pelvic sd2 Pain, Back Pain. 23:18 61-year-old female with a history of chronic back pain presents with a chief complaint sd2 of left hip pain. She reports she was diagnosed last week at [facility] with a "pelvic fracture" and was given 7 tramadol and told to follow-up with an orthopedist. She states she has had trouble getting into see anyone due to her insurance and has not yet followed up regarding this. She has been taking Tylenol and ibuprofen as well at home with no relief. She states the pain is gotten so bad that she can no longer walk well. She was able to get up and transfer herself from the wheelchair to the stretcher in the room. She denies any fevers or other significant systemic symptoms or changes in her symptoms otherwise. She cannot recall what inciting injury might have caused her fracture but states the pain has been ongoing for weeks prior to being diagnosed with a fracture. She cannot tell me what kind of fracture it was exactly and states she is currently using crutches as she was told.. Historical: - PMHx: 21:12 Anxiety; Arthritis; biliary chirrosis; biliary disease; Cirrhosis; Hypertension; jh5 Pancreatitis; - PSHx: 21:12 Appendectomy; Biliary stent removal; Biliary stents; Cholecystectomy; jh5 - Immunization history:: Adult Immunizations up to date. - Social history:: Smoking status: Patient denies any tobacco usage or history of. ROS: 23:18 Constitutional: Negative for fever, chills, and weight loss, Eyes: Negative for injury, sd2 pain, redness, and discharge, Cardiovascular: Negative for chest pain, palpitations, and edema, Respiratory: Negative for shortness of breath, cough, wheezing. Abdomen/GI: Negative for abdominal pain, nausea, vomiting, diarrhea. Back: Negative for injury and positive for pain, : Negative for dysuria, urinary frequency, hesitancy, urgency and hematuria. MS/Extremity: Negative for injury and deformity, Skin: Negative for injury, rash, and discoloration, Neuro: Negative for headache, numbness and tingling. Exam: 23:18 Constitutional: This is a well developed, well nourished patient who is awake, alert, sd2 and in distress 2/2 pain Head/Face: Normocephalic, atraumatic. Eyes: EOMI, normal conjunctiva bilaterally Chest/axilla: Normal chest wall appearance and motion. Nontender with no deformity. Cardiovascular: Regular rate and rhythm with a normal S1 and S2. No gallops, murmurs, or rubs. 2+ distal pulses. Respiratory: Lungs have equal breath sounds bilaterally, clear to auscultation and percussion. No rales, rhonchi or wheezes noted. No increased work of breathing, no retractions or nasal flaring. Abdomen/GI: Soft, non-tender, with normal bowel sounds. No guarding or rebound. No evidence of tenderness throughout. Back: No spinal tenderness. No costovertebral tenderness. Full range of motion. Skin: Warm, dry with normal turgor. Normal color with no rashes, no lesions, and no evidence of cellulitis. MS/ Extremity: Pulses equal, no cyanosis. Neurovascular intact. Full, normal range of motion. Pt able to bear weight and transfer from wheelchair to stretcher taking a few steps. 5/5 strength to BLEs with intact sensation. L anterior hip tenderness on exam. pt states this is the area where she was told the fracture was located. Psych: Awake, alert, with orientation to person, place and time. Behavior, mood, and affect are within normal limits. Vital Signs: 21:08 BP 156 / 104; Pulse 86; Resp 18; Temp 98.6; Weight 72.57 kg; Height 5 ft. 0 in. (152.40 jh5 cm); Pain 10; 23:20 BP 166 / 88; Pulse 86; Resp 18; Pulse Ox 98% on R/A; ha1 02/02 01:05 BP 163 / 89; Pulse 86; Resp 18 S; Pulse Ox 100% on R/A; ha1 02/01 21:08 Body Mass Index 31.25 (72.57 kg, 152.40 cm) jh5 MDM: 02/01 21:25 Patient medically screened. sd2 23:18 Differential diagnosis: fracture, contusion, doubt cauda equina, doubt spinal stenosis, sd2 acute on chronic pain among others. Data reviewed: vital signs, nurses notes. 02/02 00:36 Counseling: I had a detailed discussion with the patient and/or guardian regarding: the sd2 historical points, exam findings, and any diagnostic results supporting the discharge/admit diagnosis, the need for outpatient follow up, to return to the emergency department if symptoms worsen or persist or if there are any questions or concerns that arise at home. Medical screen evaluation completed. [facility] emergency medical condition absent. ED course: Pt has already been diagnosed and has continued pain and is working on follow up with Orthopedics. No indications for further diagnostic imaging at this time as pain is unchanged. Pain improved after treatment in ER to 07/23. Pt comfortable with plan for discharge and outpatient follow up and will call Orthopedics in the morning to continue with follow up plan. Verbalizes understanding of strict return precautions.. Administered Medications: 02/01 23:43 Drug: morphine 5 mg Route: IM; Site: right vastus lateralis; ha1 02/02 01:05 Follow up: Response: No adverse reaction; Pain is unchanged, physician notified; RASS: ha1 Alert and Calm (0) 02/01 23:43 Drug: Ondansetron 4 mg Route: PO; ha1 02/02 01:04 Follow up: Response: No adverse reaction ha1 00:54 Drug: Methocarbamol 1000 mg Route: PO; ha1 01:05 Follow up: Response: No adverse reaction ha1 Disposition Summary: 02/02/22 00:38 Discharge Ordered Location: Home sd2 Problem: an ongoing problem sd2 Symptoms: have improved sd2 Condition: Stable sd2 Diagnosis - Pain in left hip sd2 Followup: sd2 - With: Eagle Dunaway MD - When: 2 - 3 days - Reason: Recheck today's complaints, Continuance of care, Re-evaluation by your physician Followup: sd2 - With: Iron Brown MD - When: 2 - 3 days - Reason: Recheck today's complaints, Continuance of care, Re-evaluation by your physician Discharge Instructions: - Discharge Summary Sheet sd2 - Hip Fracture sd2 - Hip Pain sd2 Forms: - Medication Reconciliation Form sd2 - Thank You Letter sd2 - Antibiotic Education sd2 - Prescription Opioid Use sd2 - Work release form ha1 Prescriptions: - Tylenol-Codeine #3 300 mg-30 mg Oral - take 1 tablet by ORAL route every 6 hours As needed; 12 tablet; Refills: 0, sd2 Product Selection Permitted Signatures: Yulia Weber RN RN jh5 Barbie Cruz MD MD sd2 Lorena Mata RN RN ha1
[2022-02-02] MEDS ORDERED: methocarbamoL 500 MG TAB ONE (00:59)
[2022-02-02 01:22] VITALS: TEMP 98.6
[2022-02-02 01:24] VITALS: BP 163/89; O2SAT 100
== END 2022-02-02 01:07 | disposition home or self-care (01) ==
LOC: ER 20:51
DX: M25.552 Pain in left hip (principal); I10 Essential (primary) hypertension; F41.9 Anxiety disorder, unspecified; S32.9XXD Fracture of unspecified parts of lumbosacral spine and pelvis, subsequent encounter for fracture with routine healing
CPT/HCPCS: 96372; 99283; Q0162

== ENCOUNTER 2022-09-08 00:03 | Emergency (ER) | payer OTHER ==
[2022-09-08 01:05] LABS: Absolute Lymphocytes (CBC) 0.9 K/uL (0.7-4.9); MCV 90.9 fL (80-100); MPV 7.9 fL (7.6-11.3)
[2022-09-08 01:17] LABS: Potassium 3.2 mEq/L (3.5-5.1)
--- OUTSIDE RECORDS SUMMARY | 2022-09-08 01:30 | XMS REPORT | Continuity of Care Document ---
:1960 Author Organization [facility] t Address [address] [facility] [place] [place] [address] Care Team Providers Name Role Phone Maximo Gallegos Primary Care Physician Belinda Osman Attending Clinician Unavailable Jeannie Slade Attending Clinician Unavailable GULSHAN PIPER Attending Clinician Unavailable ARIK AVILEZ Attending Clinician Unavailable MOISE GAMEZ Attending Clinician Unavailable ANA MARÍA PENNY Attending Clinician Unavailable BRAULIO NGUYỄN Attending Clinician Unavailable Kalpesh Villalta RN Attending Clinician Unavailable MARIE MAXWELL Attending Clinician Unavailable Mariana Ramirez MD Attending Clinician Marie Maxwell Attending Clinician Madhav Nicole MD Attending Clinician Lanny Hussein RN Attending Clinician Unavailable PASHA HINOJOSA Attending Clinician Unavailable Jadyn Skaggs DO Attending Clinician Juan Luis WEBSTER, Rigoberto Attending Clinician Pasha Hinojosa MD Attending Clinician JUDY WEISS Attending Clinician Unavailable Judy Weiss MD Attending Clinician [phone] MILAGROS OHARA Attending Clinician Unavailable ELYSSA MAXWELL Attending Clinician Unavailable Nguyễn Montano MD Attending Clinician Elyssa Maxwell DO Attending Clinician MEKA HAMMONDS Attending Clinician Unavailable Meka Hammonds NP Attending Clinician VIRA WASHBURN Attending Clinician Unavailable Doctor Unassigned, [place] Attending Clinician Unavailable MARIANA RAMIREZ Attending Clinician Unavailable ZULEMA RODRIGUEZ JR Attending Clinician Unavailable Jennifer Cervantes, Zulema WHALEN Attending Clinician Abe Arana CRNA Attending Clinician Elyssa Jerome MD Attending Clinician Only, Adc Test Attending Clinician Unavailable Pob, Adc Lab Main Attending Clinician Unavailable Cyn Abdi RN Attending Clinician Unavailable RAF GREENE Attending Clinician Unavailable Jaki Llamas Attending Clinician Raf Greene DO Attending Clinician Won Malone MD Attending Clinician MARU BAEZ Attending Clinician Unavailable Maru Baez DO Attending Clinician DANIEL GRADY Attending Clinician Unavailable Daniel Grady MD Attending Clinician Feliz WEBSTER, Gulshan Hawley Attending Clinician CONSUELO AVENDAÑO Attending Clinician Unavailable Ebrahim CERTIFIED ORTHOTIST PRACTICE MANAGER, Rania Attending Clinician Kelly RN, Kelsy Lemon Attending Clinician Unavailable , [facility] Attending Clinician Unavailable Green CERTIFIED ORTHOTIST PRACTICE MANAGER, Korina Attending Clinician KORINA ALBERTO Attending Clinician Unavailable OLGA LIDIA PALACIO Attending Clinician Unavailable Gustavo, Ang Jaiden Uc Attending Clinician Unavailable Hakeem WEBSTER, Olga Lidia Attending Clinician ROSALINDA FISHER Attending Clinician Unavailable Natalia WEBSTER, Rosalinda Upton Attending Clinician Karo KAN, Karlene Hawley Attending Clinician Unavailable Vira Washburn MD Attending Clinician Ibjaimee PERRIN, Eliana F Attending Clinician ELIANA POOLE F Attending Clinician Unavailable Kadi Duggan MD Attending Clinician Uriel Santo MD Attending Clinician URIEL SANTO Attending Clinician Unavailable Maisha Bledsoe Attending Clinician MAISHA REYES Attending Clinician Unavailable SULAIMAN MARSH Attending Clinician Unavailable Moise Gamez MD Attending Clinician Jaki POLANCO Attending Clinician Unavailable Rayray Ayala MD, Dominguez Attending Clinician Asaf CERTIFIED ORTHOTIST PRACTICE MANAGERKirstin Attending Clinician Lab, Adc Fam Pob I Attending Clinician Unavailable Kayy CERTIFIED ORTHOTIST PRACTICE MANAGER, Loyda Attending Clinician Jeannie Slade Attending Clinician Kenan WEBSTER, Gabriele Mason Attending Clinician Katheryn Retana MD Attending Clinician Diego Grigsby MD, Kobi Attending Clinician GABRIELE GRAYSON Attending Clinician Unavailable JADYN SKAGGS Attending Clinician Unavailable Christina WEBSTER, Milagros L Attending Clinician Ector Barnett S Attending Clinician Luis KAN, rPicilla Attending Clinician Sundar Brooke MD Attending Clinician Maxim WEBSTER, Carlito Attending Clinician Gisselle Mai NP-C Attending Clinician Unavailable Boogie Cox Attending Clinician Unavailable PROVIDER, ED TEMP Attending Clinician Unavailable HOMAR LOVELACE Attending Clinician Unavailable To, Bradford Attending Clinician Unavailable GREGORY PONCE Attending Clinician Unavailable DIANA CASTILLO Attending Clinician Unavailable GULSHAN PIPER Admitting Clinician Unavailable ARIK AVILEZ Admitting Clinician Unavailable MOISE GAMEZ Admitting Clinician Unavailable ANA MARÍA PENNY Admitting Clinician Unavailable BRAULIO NGUYỄN Admitting Clinician Unavailable MADHAV NICOLE Admitting Clinician Unavailable Madhav Nicole MD Admitting Clinician RIGOBERTO MENENDEZ Admitting Clinician Unavailable Rigoberto Menendez MD Admitting Clinician JUDY WEISS Admitting Clinician Unavailable ELYSSA MAXWELL Admitting Clinician Unavailable Elyssa Maxwell DO Admitting Clinician MEKA HAMMONSD Admitting Clinician Unavailable RAF GREENE Admitting Clinician Unavailable ZULEMA RODRIGUEZ JR Admitting Clinician Unavailable Jennifer Cervantes, DPZulema Amezquita Admitting Clinician WON MALONE Admitting Clinician Unavailable Won Malone MD Admitting Clinician MARU BAEZ Admitting Clinician Unavailable PASHA HINOJOSA Admitting Clinician Unavailable Pasha Hinojosa MD Admitting Clinician Gulshan Piper MD Admitting Clinician MARIANA RAMIREZ Admitting Clinician Unavailable CONSUELO AVENDAÑO Admitting Clinician Unavailable ROSALINDA FISHER Admitting Clinician Unavailable ELIANA POOLE Admitting Clinician Unavailable Urban WEBSTER, Kadi Admitting Clinician KADI DUGGAN Admitting Clinician Unavailable Keira WEBSTER, Moise S Admitting Clinician Jaki POLANCO Admitting Clinician Unavailable Diego Grigsby MD, Kobi Admitting Clinician GABRIELE GRAYSON Admitting Clinician Unavailable JADYN SKAGGS Admitting Clinician Unavailable Maxim WEBSTER, [facility] Admitting Clinician Boogie Cox Admitting Clinician Unavailable Payers Payer Name Policy Type Policy Number Effective Date Expiration Date Maxine hammonds [facility] [id number] 2021 [place] 00:00:00 MEDICARE PART A [id number] 2015 \\T\\ B 00:00:00 CIGNA II [id number] 2018 00:00:00 MEDICARE A B [id number] 2015 00:00:00 CIGNA [id number] 2018 HMO/POS/OPEN 00:00:00 ACCESS BCBS OS [id number] 2010 2020 POS/PPO/EPO 1 00:00:00 00:00:00 Cigna Preferred 53 [id number] 2021 [facility] Medicare (HMO) 00:00:00 [facility] CIGNA 53 [id number] 2018 [facility] 00:00:00 [facility] MEDICARE MB [id number] 2016 [facility] NOVITAS 00:00:00 [facility] Problems Condition Condition Condition Status Onset Resolution Last Treating Co mments Source Name Details Category Date Date Treatment Clinician Date Hepatitis Hepatitis Disease Active Uni vers 1-11 ity of 00:00: [place] 00 Medical Branch Left lower Left lower Disease Active 2021-04 U nivers quadrant quadrant 0-25 [place] abdominal abdominal [place] 00 [place] RUQ pain RUQ pain Disease Active Unive rs 5-20 ity of 00:00: [place] [facility] Acute on Acute on Disease Active Unive rs chronic chronic 4-10 [place]y of pancreatit pancreatit [place] 00 [facility] Branch 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 [place] of cirrhosis cirrhosis [place] Pancreatit Pancreatit Disease Active [facility] is, acute is, acute 5-25 [facility] s 00:00: [address] 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[facility] cirrhosis cirrhosis 00:00: [facility] 00 Center S/P ERCP S/P ERCP Disease [facility] 00:00: [facility] 00 Center Cerebrovas Cerebrovas Disease Active 2019- U nivers cular cular 0-22 ity of accident accident 00:00: [place] (CVA) due (CVA) due 00 [facility] 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 Arthritis Arthritis Disease Active 2019-04 Uni vers 0-21 ity of 00:00: [place] [facility] Toxic Toxic Disease Active 2019- Univers metabolic metabolic 0-20 ity of encephalop encephalop 00:00: Dom mao athy athy 00 Medical Branch Altered Altered Disease Active 2019- Univers mental mental 0-18 ity of status status 00:00: [place] [facility] Abdominal Abdominal Disease Active 2019-0 Uni vers pain pain 8-03 ity of 00:00: [place] [facility] Acute Acute Disease Active 2019-0 Univers abdominal abdominal 8-03 ity of pain pain 00:00: [place] 00 Medical Branch Peripheral Peripheral Disease Active 2019-0 U nivers nerve nerve 7-10 ity of disease disease 00:00: [place] [facility] Choledocho Choledocho Disease Active 2018-0 U nivers lithiasis lithiasis 7-20 ity of 00:00: [place] 00 Medical Branch Constipati Constipati Disease Active 2018-0 U nivers on on 7-18 ity of 00:00: [place] [facility] Acute Acute Disease Active 2018-0 Univers appendicit appendicit 6-10 it y of is is 00:00: [place] 00 Medical Branch Transamini Transamini Disease Active U nivers tis tis 8-17 ity of 00:00: [place] 00 Medical Branch Acute Acute Disease Active 2017 Univers cystitis cystitis 8-15 ity of without without 00:00: [place] hematuria hematuria 00 [facility] Branch History of History of Disease Active U nivers biliary biliary 8-15 ity of duct [place] 00 [facility] Branch 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 8-15 it y of vomiting vomiting 00:00: [place] with with 00 Medical nausea nausea Branch Intractabl Intractabl Disease Active U nivers e e 8-15 ity of epigastric epigastric [place] abdominal abdominal 00 [facility] pain pain Branch Obesity Obesity Disease Active 2015-04 Univers (BMI (BMI 1-17 ity of 30-39.9) 30-39.9) 00:00: [place] 00 Medical Branch Abdominal Abdominal Disease Active [...] periodic 7-27 Shari kes paralysis paralysis 00:00: [facility] 00 Center Biliary Biliary Disease Active [facility] disease disease 5-16 [facility] 00:00: Medical 00 Center Abdominal Abdominal Disease Active [facility] pain, pain, 5-09 [facility] other other 00:00: Medical specified specified 00 Cent er site site Acute Acute Disease Active [facility] pancreatit pancreatit 5-05 Shari kes is is 00:00: Medical 00 Center Primary 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 5-05 [facility] cholangiti cholangiti 00:00: Me dical s s 00 Center Chronic Chronic Disease Active 2012-[address] pancreatit pancreatit 1-14 Shari kes is is 00:00: Medical 00 Center Abdominal Abdominal Disease Active 2012-[address] pain pain 1-08 [facility] 00:00: Medical 00 [place] 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 04-22 [facility] 00:00: Medical 00 [place] Elevated Elevated Disease Active 2012-04 [facility] liver liver 04-22 [facility] enzymes enzymes 00:00: Medical 00 [place] Hypertensi Hypertensi Disease Active 2012-[address] on on 04-22 [facility] 00:00: Medical 00 [place] Nausea & Nausea & Disease Active 2012-04 [facility] vomiting vomiting 04-22 [facility] 00:00: Medical 00 Center Fatty Fatty Disease Active 2012-[address] liver liver 04-22 [facility] 00:00: Medical 00 [place] Alcohol Alcohol Disease Active 2012-[address] use use 04-22 [facility] 00:00: Medical 00 [place] Immunity Immunity Disease Active 2012-04 [facility] status status 04-22 [facility] testing testing 00:00: Medical 00 [place] Iron Iron Problem Common deficiency deficiency Sp roberta anemia anemia, - [facility] unspec[facility]ie [facility] d iron [facility] deficiency Medica l anemia Center type [id number] Neuropathy Problem Co mmon Spirit [facility] 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 - CHI hemorrhage disease St , without [facility] perforatio Medica l n AND Center without obstructio n [id number] Other Problem Common chronic Spirit pain [facility] [id number] Osteoarthr Problem Co mmon itis Spirit involving - [facility] multiple St joints on [facility] both sides Medica l of body Center Gastroesop Gastroesop Problem C ommon hageal hageal Spirit reflux reflux - CHI disease disease St without without [facility]ukes esophagiti esophagiti Me dical s s [place] [id number] Moderately Problem Co mmon severe Spirit depression [facility] Adjustment Grieving Problem Com mon disorder Spirit with - [facility] depressed [facility] Essential Essential Problem Com mon hypertensi hypertensi Sp roberta on on [facility] [id number] Anxiety Problem Common [facility] Primary Primary Problem Common insomnia insomnia [facility] [id number] Peptic Problem Common ulcer Spirit disease [facility] [id number] Post-menop Problem Com mon ausal Spirit bleeding [facility] [id number] Seasonal Problem Comm on allergies Spirit - [facility] Allergies, Adverse Reactions, Alerts Allergy Allergy Status Severity Reaction(s) Onset Inactive Treating Comm ents Source Name Type Date Date Clinician ACETAMIN DRUG Active ITCHING Univers OPHEN-CO 6-17 ity of DEINE 00:00: [place] 00 Medical Branch Acetamin Propensi Active Itching Pt Unive rs ophen-Co ty to 6-17 currently ity o f deine adverse 00:00: on T#3, [place] reaction 00 denies Medical s allergy, Branch states they just don't work Codeine Propensi Active Itching 2014-04 Univer s ty to 0-31 ity of adverse 00:00: [place] reaction 00 Medical s Branch Codeine Propensi Active Rash 2012-04 Univers ty to 0-30 ity of adverse 00:00: [place] reaction Medical s Branch CODEINE DRUG Active High ITCHING 2012-04 Univers INGREDI 0-30 ity of 00:00: [place] 00 Medical Branch CODEINE Allergy Active High Rash 2012-[address] [facility] 0-30 [facility] 00:00: Medical 00 Center Codeine Drug Active Rash 2012-[address] [facility] Allergy 0-30 [facility] 00:00: Medical 00 Center NO KNOWN Drug Active Univers ALLERGIE Class ity of S [place] [facility] Family History Family Member Diagnosis Comments Start Date Stop Date Source Natural brother Cancer [facility] Social History Social Habit Start Date Stop Date Quantity Comments Source History SDOH University o f Alcohol Comment [place] Med ical Branch History SDOH Social Unive rsity of [facility] Med ical Together Branch History SDOH Social Unive rsity of [facility] Medical Branch History SDOH Social Unive rsity of [facility] Medical Membership Branch History SDOH Social Unive rsity of [facility] Medical Meetings Branch History of Tobacco [facility] - Use [facility] History SDOH 2022-07-31 2022-07-31 1 University o f Alcohol Frequency 00:00:00 00:00:00 [place] M edical Branch History SDOH 2022-07-31 2022-07-31 5 University o f Financial 00:00:00 00:00:00 [place] [facility] History SDOH Food 2022-07-31 2022-07-31 1 Univers ity of Worry 00:00:00 00:00:00 [place] [facility] History SDOH Food 2022-07-31 2022-07-31 1 Univers ity of Scarcity 00:00:00 00:00:00 [place] [facility] History SDAL 2022-07-31 2022-07-31 2 University o f Transport Med 00:00:00 00:00:00 [place] Medic al Branch History SDOH 2022-07-31 2022-07-31 2 University o f Transport Non-Med 00:00:00 00:00:00 [place] M edical Branch History SDAL Social 2022-07-31 2022-07-31 5 Unive rsity of Connections Phone 00:00:00 00:00:00 [place] M edical Branch History SDOH Social 2022-07-31 2022-07-31 5 Unive rsity of Connections Living 00:00:00 00:00:00 [place] [facility] History SDOH 2022-07-31 2022-07-31 0 University o f Physical Activity 00:00:00 00:00:00 [place] M edical DPW Branch History SDAL 2022-07-31 2022-07-31 0 University o f Physical Activity 00:00:00 00:00:00 [place] M edical MPS Branch History SDAL 2022-07-31 2022-07-31 2 University o f Housing Unable to 00:00:00 00:00:00 [place] M edical Pay Branch History SDAL 2022-07-31 2022-07-31 1 University o f Housing Places 00:00:00 00:00:00 [place] Medi brandy Lived Branch History SDAL 2022-07-31 2022-07-31 2 University o f Housing Homeless 00:00:00 00:00:00 [place] Me dical Last Year Branch Exposure to 2022-07-20 2022-07-30 Not sure University SARS-CoV-2 (event) 00:00:00 15:29:00 [place] [facility] History SDOH 2022-04-26 2022-04-26 0 University o f Alcohol Std Drinks 00:00:00 00:00:00 [place] [facility] History SDOH 2022-04-26 2022-04-26 1 University o f Alcohol Binge 00:00:00 00:00:00 [place] Medic al Branch Alcohol intake 2020-09-06 2020-09-[address] [facility] es 00:00:00 00:00:00 non-drinker of Medical Ce nter alcohol (finding) Tobacco use and 2018-11-15 2018-11-15 Smokeless Universit y of exposure 00:00:00 00:00:00 tobacco non-user [facility] Sex Assigned At [birth year] ANDRES Ahn 00:00:00 00:00:00 Medical Center Smoking Status Start Date Stop Date Source Never smoked tobacco [facility] Medications Ordered Filled Start Stop Current Ordering Indication Dosage Frequency Signature Comments Components Source Medication Medication Date Date Medication? Clinician (SIG) Name Name sucralfate 2022-0 Yes 1g 1 g, Oral, U nivers (CARAFATE) 4-18 AC+HS, ity of tablet 1 g 21:30: First dose T ex 00 on [facility] 07/31/22 at [place] 1630, Until Discontinu ed, Routine maalox:diph 2022-0 2022- No 15mL 15 mL, Uni vers enhydrAMINE 18 04-18 Oral, ity of :lidocaine 16:45: 16:17 ONCE, 1 Archie as 2 % viscous 00 :00 dose, On Medi brandy 1:1:1 [facility] (FIRST-MOUT 07/31/22 at [facility]) 1145, oral Routine suspension 15 mL tiZANidine 2022-0 Yes 4mg Take 1 Unive rs 4 mg tablet 4-18 tablet by ity of 16:15: mouth in [place] [address] the Medical morning Branch and 1 tablet in the evening. traZODone 3-0 Yes 150mg Take 1 Unive rs 150 mg 4-18 tablet by ity of tablet 16:15: mouth at [place] [address] bedtime. Medical Branch losartan 2023-0 Yes 100mg Take 1 Univer s 100 mg 4-18 tablet by ity of tablet 16:15: mouth in [place] [address] the Medical morning. Branch gabapentin 3-0 Yes 300mg Take 1 Univ ers 300 mg 4-18 capsule by ity of capsule 16:15: mouth in [place] [address] the Medical morning Branch and 1 capsule at noon and 1 capsule in the evening. proMETHazin 3-0 Yes 25mg Take 1 Univ ers e 25 mg 4-18 tablet by ity of tablet 16:15: mouth [place] [address] every 4 Medical (four) Branch hours as needed. tiZANidine 2023-0 Yes 4mg Take 1 Unive rs 4 mg tablet 4-18 tablet by ity of 16:15: mouth in [place] 48 the Medical morning Branch and 1 tablet in the evening. traZODone 2023-0 Yes 150mg Take 1 Unive rs 150 mg 4-18 tablet by ity of tablet 16:15: mouth at [place] [address] bedtime. Medical Branch losartan 2023-0 Yes 100mg Take 1 Univer s 100 mg 4-18 tablet by ity of tablet 16:15: mouth in [place] 48 the Medical morning. Branch gabapentin 2023-0 Yes 300mg Take 1 Univ ers 300 mg 4-18 capsule by ity of capsule 16:15: mouth in [place] 48 the Medical morning Branch and 1 capsule at noon and 1 capsule in the evening. proMETHazin 2023-0 Yes 25mg Take 1 Univ ers e 25 mg 4-18 tablet by ity of tablet 16:15: mouth [place] 48 every 4 Medical (four) Branch hours as needed. HYDROcodone 3-0 Yes 1{tbl} 1 tablet, Univers -acetaminop 4-18 Oral, ity of hen (NORCO 14:39: Q6HPRN, [place] 5) 5-325 mg 28 Starting Medi brandy tablet 1 on [facility] tablet 07/31/22 at 0939, Until Discontinu ed, Routine, Pain (scale 7-10) losartan 2022-0 Yes 100mg 100 mg, Unive rs (COZAAR) 4-18 Oral, ity of tablet 100 14:00: DAILY, [place] mg 00 First dose Medical on [facility] 07/31/22 at 0900, Until Discontinu ed, Routine enoxaparin 2022-0 Yes 40mg 40 mg, Unive rs (LOVENOX) 4-18 Subcutaneo ity of injection 14:00: [place] 40 mg 00 First dose Medical on [facility] 07/31/22 at 0900, Until Discontinu ed, Routine pantoprazol 3-0 Yes 40mg 40 mg, Univ ers e 4-18 Oral, BID, ity of (PROTONIX) 13:00: First dose [place] EC tablet 00 on [facility] 40 mg 07/31/22 at Branch 0800, Until Discontinu ed, Routine gabapentin 3-0 Yes 300mg 300 mg, Uni vers (NEURONTIN) 4-18 Oral, TID, it y of capsule 300 13:00: First dose [place] mg 00 on [facility] 07/31/22 at Branch 0800, Until Discontinu ed, Routine morpHINE (2 2022-2022- No 2mg 2 mg, Slow Univers mg/mL) 07-31 IV Push, ity of injection 2 06:45: 06:10 ONCE, 1 [place] mg 00 :00 dose, On [facility] [place] [facility] 07/31/22 at 0145, Routine maalox:diph 2022-2022- No 15mL 15 mL, Uni vers enhydrAMINE 07-31 Oral, ity of :lidocaine 06:45: 06:10 ONCE, 1 Archie as 2 % viscous 00 :00 dose, On Medi brandy 1:1:1 [facility] (FIRST-MOUT 07/31/22 at [facility]) 0145, oral Routine suspension 15 mL tiZANidine Yes 4mg 4 mg, Univer s (ZANAFLEX) 07-31 Oral, BID, ity of tablet 4 mg 04:00: First dose [place] 00 on [facility] 07/30/22 at Branch 2300, Until Discontinu ed, Routine morpHINE (4 2022-2022- No 4mg 4 mg, Slow Univers mg/mL) 07-31 IV Push, ity of injection 4 02:30: 01:46 ONCE, 1 [place] mg 00 :00 dose, On [facility] 07/30/22 at 2130, STAT ondansetron Yes 4mg 4 mg, Slow Univers (ZOFRAN 07-31 IV Push, ity of (PF)) 02:18: Q6HPRN, [place] injection 4 59 Starting Medi brandy mg on [facility] 07/30/22 at 2118, Until Discontinu ed, Routine, Nausea and Vomiting (N/V) morpHINE (2 2022-2022- No 2mg 2 mg, Slow Univers mg/mL) 07-31 IV Push, ity of injection 2 02:18: 14:39 Q4HPRN, [place] mg 50 :46 Starting Medical on [facility] 07/30/22 at 2118, Until [facility] 07/31/22 at 0939, Routine, Pain (scale 7-10) acetaminoph Yes 650mg 650 mg, Un you en 07-31 Oral, ity of (TYLENOL) 02:18: Q6HPRN, [place] tablet 650 45 Starting Medic al mg on Mon Branch 07/30/22 at 2118, Until Discontinu ed, Routine, Pain (scale 1-3) proMETHazin 2022- No 25mg 25 mg, IV Univers e 07-31 Piggyback, ity of (PHENERGAN) 02:00: 01:46 ONCE, 1 [place] 25 mg in 00 :00 dose, On Medical NaCl 0.9% Sat Branch (NS) 50 mL 07/30/22 at IV 2100, [place] piggyback morpHINE (4 2022- No 4mg 4 mg, Slow Univers mg/mL) 07-31 IV Push, ity of injection 4 00:45: 00:34 ONCE, 1 [place] mg 00 :00 dose, On [facility] Branch 07/30/22 at 1945, STAT pantoprazol 2022- Yes [id number] 40mg Take 1 Univers e 40 mg EC 07-31- tablet by ity of tablet 00:00: 04:59 mouth in [place] 00 :00 the Medical morning Branch and 1 tablet in the evening. Do all this for 30 days. sucralfate 2022- Yes [id number] 1g Take 1 Univers 1 gram 07-31-19 tablet by ity of tablet 00:00: 04:59 mouth [place] 00 :00 before Medical meals and Branch at bedtime for 30 days. pantoprazol 2022- Yes [id number] 40mg Take 1 Univers e 40 mg EC 07-31-19 tablet by ity of tablet 00:00: 04:59 mouth in [place] 00 :00 the Medical morning Branch and 1 tablet in the evening. Do all this for 30 days. sucralfate 2022- Yes [id number] 1g Take 1 Univers 1 gram 07-31 05-19 tablet by ity of tablet 00:00: 04:59 mouth [place] 00 :00 before Medical meals and Branch at bedtime for 30 days. HYDROcodone 2022- Yes [id number] 1{tbl} Take 1 U nivers -acetaminop 4-18 -26 tablet by it y of hen 5-325 00:00: 04:59 mouth [place] mg tablet 00 :00 every 6 Medical (six) Branch hours as needed for Pain (scale 7-10) for up to 7 days. Indication s: acute pain HYDROcodone 2022- Yes [id number] 1{tbl} Take 1 U nivers -acetaminop 4-18 -26 tablet by it y of hen 5-325 00:00: 04:59 mouth [place] mg tablet 00 :00 every 6 Medical (six) Branch hours as needed for Pain (scale 7-10) for up to 7 days. Indication s: acute pain ondansetron 2022- No 4mg 4 mg, Slow Univers (ZOFRAN 07-30 IV Push, ity of (PF)) 23:15: 23:12 ONCE, 1 [place] injection 4 00 :00 dose, On Medi brandy mg Mon Branch 07/30/22 at 1815, [place] FENTanyl PF 2022- No 50ug 50 mcg, Un you (SUBLIMAZE 07-30 Slow IV ity o f (PF)) 23:15: 23:12 Push, [place] injection 00 :00 ONCE, 1 Medical 50 mcg dose, On Branch 07/30/22 at 1815, STAT traZODone 2022- No 100mg Take 100 Un you 100 mg 04-26-12 mg by ity of tablet 16:27: 00:00 mouth at [place] 25 :00 bedtime. Medical Branch losartan 2022- No 100mg Take 100 Uni vers 100 mg 04-26-12 mg by ity of tablet 16:27: 00:00 mouth [place] 25 :00 daily. Medical Branch gabapentin 2022- No 300mg Take 300 U nivers 300 mg 04-26-12 mg by ity of capsule 16:27: 00:00 mouth at [place] 25 :00 bedtime. Medical Branch QUEtiapine 2022- No 500mg Take 500 U nivers 400 mg 04-26-12 mg by ity of tablet 16:27: 00:00 mouth in [place] 25 :00 the Medical morning. Branch Patient reports that she has real bad anxiety, her doctor just upped her dosage to 500 mg omeprazole 2022-0 2022- No 20mg Take 20 mg Univers 20 mg 04-26 by mouth ity of tablet 16:27: 00:00 daily. [place] 25 :00 Medical Branch tiZANidine 2022-0 2022- No 1 tablet Un you 2 mg tablet 04-26 as needed it y of 16:27: 00:00 [place] 25 :00 Medical Branch escitalopra 2022-0 2022- No 5mg Take 5 mg Univers m oxalate 5 04-26 by mouth ity of mg tablet 16:27: 00:00 in the [place] 25 :00 morning. [facility] Branch traZODone 0 Yes 100mg Take 100 Uni vers 100 mg 1-12 mg by ity of tablet 16:25: mouth at [place] [address] bedtime. Medical Branch losartan 0 Yes 100mg Take 100 Univ ers 100 mg 1-12 mg by ity of tablet 16:25: mouth [place] [address] daily. [facility] Branch gabapentin 0 Yes 300mg Take 300 Un you 300 mg 1-12 mg by ity of capsule 16:25: mouth at [place] [address] bedtime. [facility] Branch QUEtiapine Yes 500mg Take 500 Un you 400 mg 1-12 mg by ity of tablet 16:25: mouth in [place] [address] the Medical morning. [place] Patient reports that she has real bad anxiety, her doctor just upped her dosage to 500 mg omeprazole 0 Yes 20mg Take 20 mg U nivers 20 mg 12 by mouth ity of tablet 16:25: daily. [address] tiZANidine 0 Yes 1 tablet Uni vers 2 mg tablet 04-26 as needed ity of 16:25: [address] escitalopra 0 Yes 5mg Take 5 mg U nivers m oxalate 5 12 by mouth ity of mg tablet 16:25: in the [place] [address] morning. Medical Branch HYDROcodone 2022-0 Yes 1{tbl} 1 tablet, Univers -acetaminop 12 Oral, ity of hen (NORCO) 15:52: Q6HPRN, [place] 10-325 mg 52 Starting Medica l tablet 1 on [place] Branch tablet 04/26/22 at 0952, Until Discontinu ed, Routine, Pain (scale 7-10) HYDROcodone 2022-0 Yes 1{tbl} 1 tablet, Univers -acetaminop -12 Oral, ity of hen (NORCO) 15:52: Q6HPRN, [place] 10-325 mg 52 Starting Medica l tablet 1 on [place] Branch tablet 04/26/22 at 0952, Until Discontinu ed, Routine, Pain (scale 7-10) acetaminoph 2022-0 Yes 1{tbl} 1 tablet, Univers en-codeine -12 Oral, ity of (TYLENOL 15:52: Q4HPRN, [place] #3) 300-30 34 Starting Medic al mg tablet 1 on [place] Branch tablet 04/26/22 at 0952, Until Discontinu ed, Routine, Pain (scale 4-6) acetaminoph 2022-0 Yes 1{tbl} 1 tablet, Univers en-codeine -12 Oral, ity of (TYLENOL 15:52: Q4HPRN, [place] #3) 300-30 34 Starting Medic al mg tablet 1 on [place] Branch tablet 04/26/22 at 0952, Until Discontinu ed, Routine, Pain (scale 4-6) gadobenate 2022-0 2022- No [id number] .2mL/kg 13.28 mL Univers dimeglumine 04-26 (0.2 mL/kg i ty of (MULTIHANCE 15:30: 15:30 ?66.4 kg), [place] -15 mL) 00 :00 Intravenou Medica l injection s, ONCE, 1 Bran ch 13.28 mL dose, On Sat04/26/22 at 0930, Routine gadobenate 2022-0 2022- No [id number] .2mL/kg 13.28 mL Univers dimeglumine 04-26 (0.2 mL/kg i ty of (MULTIHANCE 15:30: 15:30 ?66.4 kg), [place] -15 mL) 00 :00 Intravenou Medica l injection s, ONCE, 1 Bran ch 13.28 mL dose, On Sat04/26/22 at 0930, Routine escitalopra 0 Yes 5mg 5 mg, Unive rs m oxalate 1-12 Oral, ity of (LEXAPRO) 15:00: DAILY, [place] tablet 5 mg 00 First dose Me dical on [facility] Branch 04/26/22 at 0900, Until Discontinu ed, Routine enoxaparin 2023-0 Yes 40mg 40 mg, Unive rs (LOVENOX) 1-12 Subcutaneo ity of injection 15:00: [place], [place]ILY, [place] 40 mg 00 First dose Medical on [facility] Branch 04/26/22 at 0900, Until Discontinu ed, Routine escitalopra 2023-0 Yes 5mg 5 mg, Unive rs m oxalate 1-12 Oral, ity of (LEXAPRO) 15:00: DAILY, [place] tablet 5 mg 00 First dose Me dical on [facility] Branch 04/26/22 at 0900, Until Discontinu ed, Routine enoxaparin 2023-0 Yes 40mg 40 mg, Unive rs (LOVENOX) 1-12 Subcutaneo ity of injection 15:00: [place], [place]ILY, [place] 40 mg 00 First dose Medical on [facility] Branch 04/26/22 at 0900, Until Discontinu ed, Routine NaCl 0.9% 2023-0 Yes 1000mL at 150 Univ ers (NS) IV 1-12 mL/hr, IV ity of infusion 06:15: Infusion, [place] 1,000 mL 00 CONTINUOUS Medic al , Starting Branch on [facility] 04/26/22 at 0015, Until Discontinu ed, Routine NaCl 0.9% 2023-0 Yes 1000mL at 150 Univ ers (NS) IV 1-12 mL/hr, IV ity of infusion 06:15: Infusion, [place] 1,000 mL 00 CONTINUOUS Medic al , Starting Branch on [facility] 04/26/22 at 0015, Until Discontinu ed, Routine NaCl 0.9% 2023-0 2023- No 1000mL at 999 Uni vers (NS) bolus -12 01-12 mL/hr, ity of infusion 06:00: 05:34 1,000 mL, [place] 1,000 mL 00 :11 IV Medical Piggyback, Branch ONCE, 1 dose, On [facility] 04/26/22 at 0000, STAT NaCl 0.9% 2023-0 2023- No 1000mL at 999 Uni vers (NS) bolus -12 01-12 mL/hr, ity of infusion 06:00: 05:34 1,000 mL, [place] 1,000 mL 00 :11 IV [facility] ONCE, 1 dose, On [place] 04/26/22 at 0000, STAT traZODone 2023-0 Yes 100mg 100 mg, Univ ers (DESYREL) 1-12 Oral, QHS, ity of tablet 100 05:30: First dose [place] mg 00 on [facility] 04/25/22 at [place] 2330, Until Discontinu ed, Routine QUEtiapine 2023-0 Yes 50mg 50 mg, Unive rs (SEROQUEL) 1-12 Oral, QHS, ity of tablet 50 05:30: First dose [place] mg 00 on [facility] 04/25/22 at [place] [id number], Until Discontinu ed, Routine gabapentin 2023-0 Yes 300mg 300 mg, Uni vers (NEURONTIN) 1-12 Oral, QHS, it y of capsule 300 05:30: First dose [place] mg 00 on [facility] 04/25/22 at [place] [id number], Until Discontinu ed, Routine traZODone 2023-0 Yes 100mg 100 mg, Univ ers (DESYREL) 1-12 Oral, QHS, ity of tablet 100 05:30: First dose [place] mg 00 on [facility] 04/25/22 at [place] [id number], Until Discontinu ed, Routine QUEtiapine 2023-0 Yes 50mg 50 mg, Unive rs (SEROQUEL) 1-12 Oral, QHS, ity of tablet 50 05:30: First dose [place] mg 00 on [facility] 04/25/22 at [place] [id number], Until Discontinu ed, Routine gabapentin 2023-0 Yes 300mg 300 mg, Uni vers (NEURONTIN) 1-12 Oral, QHS, it y of capsule 300 05:30: First dose [place] mg 00 on [facility] 04/25/22 at [place] 2330, Until Discontinu ed, Routine ondansetron 2023-0 Yes 4mg 4 mg, Slow Univers (ZOFRAN 1-12 IV Push, ity of (PF)) 05:16: Q6HPRN, [place] injection 4 42 Starting Medi brandy mg on [facility] 04/25/22 at 2316, Until Discontinu ed, Routine, Nausea and Vomiting (N/V) ondansetron 2023-0 Yes 4mg 4 mg, Slow Univers (ZOFRAN 1-12 IV Push, ity of (PF)) 05:16: Q6HPRN, [place] injection 4 42 Starting Medi brandy mg on Sat Branch 04/25/22 at 2316, Until Discontinu ed, Routine, Nausea and Vomiting (N/V) pantoprazol 2023-0 Yes 40mg 40 mg, Univ ers e 1-12 Slow IV ity of (PROTONIX) 05:15: Push, [place] injection 00 Q12H, Medical 40 mg First dose Branch on Sat04/25/22 at 2315, Until Discontinu ed polyethylen 2023-0 Yes 17g 17 g, Unive rs e glycol 1-12 Oral, BID, ity o f 3350 powder 05:15: First dose [place] 17 g 00 on Sat Medical 04/25/22 at Branch 2315, Until Discontinu ed, Routine docusate 2023-0 Yes 100mg 100 mg, Unive rs (COLACE) 1-12 Oral, BID, ity o f capsule 100 05:15: First dose [place] mg 00 on Sat Medical 04/25/22 at Branch 2315, Until Discontinu ed, Routine sennosides 3-0 Yes 8.6mg 8.6 mg, Uni vers (SENOKOT) 1-12 Oral, BID, ity of tablet 8.6 05:15: First dose [place] mg 00 on Sat Medical 04/25/22 at Branch 2315, Until Discontinu ed, Routine pantoprazol 2023-0 Yes 40mg 40 mg, Univ ers e 1-12 Slow IV ity of (PROTONIX) 05:15: Push, [place] injection 00 Q12H, Medical 40 mg First dose Branch on Sat04/25/22 at 2315, Until Discontinu ed polyethylen 2023-0 Yes 17g 17 g, Unive rs e glycol 1-12 Oral, BID, ity o f 3350 powder 05:15: First dose [place] 17 g 00 on Sat Medical 04/25/22 at Branch 2315, Until Discontinu ed, Routine docusate 2023-0 Yes 100mg 100 mg, Unive rs (COLACE) 1-12 Oral, BID, ity o f capsule 100 05:15: First dose [place] mg 00 on Sat04/25/22 at Branch 2315, Until Discontinu ed, Routine sennosides Yes 8.6mg 8.6 mg, Uni vers (SENOKOT) 12 Oral, BID, ity of tablet 8.6 05:15: First dose [place] mg 00 on Sat04/25/22 at Branch 2315, Until Discontinu ed, Routine bisacodyL 2022- No 10mg 10 mg, Unive rs (DULCOLAX) 04-26 Rectal, ity o f suppository 05:15: 22:59 QPM, 3 [place] 10 mg 00 :00 doses, Medical First dose Branch on Sat04/25/22 at 2315, Last dose on Sat04/27/22 at 1700, Routine bisacodyL 2022- No 10mg 10 mg, Unive rs (DULCOLAX) 04-26 Rectal, ity o f suppository 05:15: 22:59 QPM, 3 [place] 10 mg 00 :00 doses, Medical First dose Branch on Sat04/25/22 at 2315, Last dose on Sat04/27/22 at 1700, Routine FENTanyl PF 2022- No 50ug 50 mcg, Un you (SUBLIMAZE 04-26 Slow IV ity o f (PF)) 05:12: 15:52 Push, [place] injection 59 :47 Q2HPRN, Medical 50 mcg Starting Branch on Sat04/25/22 at 2312, Until [place] 04/26/22 at 0952, Routine, Pain (scale 7-10) FENTanyl PF 2022- No 50ug 50 mcg, Un you (SUBLIMAZE 04-26 Slow IV ity o f (PF)) 05:12: 15:52 Push, [place] injection 59 :47 Q2HPRN, Medical 50 mcg Starting Branch on Sat04/25/22 at 2312, Until [place] 04/26/22 at 0952, Routine, Pain (scale 7-10) FENTanyl PF 2022-2022- No 50ug 50 mcg, Un you (SUBLIMAZE 04-26 Slow IV ity o f (PF)) 03:15: 03:19 Push, [place] injection 00 :00 ONCE, 1 Medical 50 mcg dose, On Branch 04/25/22 at 2115, Routine FENTanyl PF 2022- No 50ug 50 mcg, Un you (SUBLIMAZE 04-26 Slow IV ity o f (PF)) 03:15: 03:19 Push, [place] injection 00 :00 ONCE, 1 Medical 50 mcg dose, On Branch 04/25/22 at 2115, Routine iopamidol 2022- No [id number] 80mL 80 mL, U nivers (ISOVUE 04-26 Intravenou ity o f 370-500 mL) 01:30: 01:30 s, ONCE, 1 [place] injection 00 :00 dose, On Medica l 80 mL Wed Branch 04/25/22 at 1930, Routine iopamidol 2022- No [id number] 80mL 80 mL, U nivers (ISOVUE 04-26 Intravenou ity o f 370-500 mL) 01:30: 01:30 s, ONCE, 1 [place] injection 00 :00 dose, On Medica l 80 mL Wed Branch 04/25/22 at 1930, Routine ondansetron 2022- No 4mg 4 mg, Slow Univers (ZOFRAN 04-26 IV Push, ity of (PF)) 00:15: 23:27 ONCE, 1 [place] injection 4 00 :00 dose, On Medi brandy mg Wed Branch 04/25/22 at 1815, Routine ondansetron 2022- No 4mg 4 mg, Slow Univers (ZOFRAN 04-26 IV Push, ity of (PF)) 00:15: 23:27 ONCE, 1 [place] injection 4 00 :00 dose, On Medi brandy mg Wed Branch 04/25/22 at 1815, Routine ondansetron 0 Yes [id number] 4mg Take 1 Univers 4 mg 1-12 tablet by ity of disintegrat 00:00: mouth [place] ing tablet 00 every 8 Medica l (eight) Branch hours as needed for Nausea and Vomiting (N/V). pantoprazol 0 Yes [id number] 20mg Take 1 Univers e 20 mg EC 1-12 tablet by ity of tablet 00:00: mouth in [place] 00 the Medical morning. Branch HYDROcodone 2022-0 Yes [id number] 1{tbl} Take 1 Un you -acetaminop 1-12 tablet by ity of hen 10-325 00:00: mouth [place] mg tablet 00 every 6 Medical (six) Branch hours as needed for Pain (scale 7-10). Indication s: acute pain ondansetron 3-0 Yes [id number] 4mg Take 1 Univers 4 mg 1-12 tablet by ity of disintegrat 00:00: mouth [place] ing tablet 00 every 8 Medica l (eight) Branch hours as needed for Nausea and Vomiting (N/V). pantoprazol 3-0 Yes [id number] 20mg Take 1 Univers e 20 mg EC 1-12 tablet by ity of tablet 00:00: mouth in [place] 00 the Medical morning. Branch HYDROcodone 2022-0 Yes [id number] 1{tbl} Take 1 Un you -acetaminop 1-12 tablet by ity of hen 10-325 00:00: mouth [place] mg tablet 00 every 6 Medical (six) Branch hours as needed for Pain (scale 7-10). Indication s: acute pain ondansetron 2022-0 Yes [id number] 4mg Take 1 Univers 4 mg 1-12 tablet by ity of disintegrat 00:00: mouth [place] ing tablet 00 every 8 Medica l (eight) Branch hours as needed for Nausea and Vomiting (N/V). pantoprazol 3-0 Yes [id number] 20mg Take 1 Univers e 20 mg EC 1-12 tablet by ity of tablet 00:00: mouth in [place] 00 the Medical morning. Branch HYDROcodone 2022-0 Yes [id number] 1{tbl} Take 1 Un you -acetaminop 1-12 tablet by ity of hen 10-325 00:00: mouth [place] mg tablet 00 every 6 Medical (six) Branch hours as needed for Pain (scale 7-10). Indication s: acute pain ondansetron 3-0 3- No [id number] 4mg Take 1 Univers 4 mg 1-12 04-17 tablet by ity of disintegrat 00:00: 00:00 mouth [place] ing tablet 00 :00 every 8 Medica l (eight) Branch hours as needed for Nausea and Vomiting (N/V). pantoprazol 2023-0 2023- No [id number] 20mg Take 1 Univers e 20 mg EC 04-26 tablet by ity of tablet 00:00: 00:00 mouth in [place] 00 :00 the Medical morning. Branch HYDROcodone 2022- No [id number] 1{tbl} Take 1 U nivers -acetaminop 04-26 tablet by it y of hen 10-325 00:00: 00:00 mouth [place] mg tablet 00 :00 every 6 Medical (six) Branch hours as needed for Pain (scale 7-10). Indication s: acute pain docusate 2022-2022- No [id number] 100mg Take 1 Univers 100 mg 04-26 capsule by ity of capsule 00:00: 05:59 mouth in [place] 00 :00 the [facility] morning Branch for 30 days. docusate 2022-0 2022- No [id number] 100mg Take 1 Univers 100 mg 04-26 capsule by ity of capsule 00:00: 05:59 mouth in [place] 00 :00 the [facility] morning Branch for 30 days. docusate 2022- No [id number] 100mg Take 1 Univers 100 mg 04-26 capsule by ity of capsule 00:00: 05:59 mouth in [place] 00 :00 the [facility] [place] [facility] for 30 days. NaCl 0.9% 2022- No 1000mL at 999 Uni vers (NS) bolus 04-25-12 mL/hr, ity of infusion 23:30: :21 1,000 mL, [place] 1,000 mL 00 :00 IV Medical Infusion, Branch ONCE, 1 dose, On Sat04/25/22 at 1730, STAT NaCl 0.9% 2022- No 1000mL at 999 Uni vers (NS) bolus 1 01-12 mL/hr, ity of infusion 23:30: 01:21 1,000 mL, [place] 1,000 mL 00 :00 IV Medical Infusion, Branch ONCE, 1 dose, On Sat04/25/22 at 1730, STAT carvediloL 2022- No 1 tablet Un you 12.5 mg 04-25 with food ity of tablet 23:18: 00:00 [place] 50 :00 [facility] Branch carvediloL 2022- No 1 tablet Un you 12.5 mg 04-25 with food ity of tablet 23:18: 00:00 [place] 50 :00 [facility] Branch ketorolac 2021-04- No 15mg 15 mg, Unive rs (TORADOL) 06-09 Intramuscu ity of injection 20:30: 19:47 lar, ONCE, [place] 15 mg 00 :00 1 dose, On [facility] Branch 04/08/22 at 1430, Routine traMADol traMADol 2021-04 No 1{table traMADol HCl 50 MG HCl 50 MG 22 t_as_ne HCl 50 MG 00:00: eded} 00 traMADol traMADol 2021-04 No 1{table traMADol HCl 50 MG HCl 50 MG -22 t_as_ne HCl 50 MG 00:00: eded} 00 traMADol traMADol 2021-04 No 1{table traMADol HCl 50 MG HCl 50 MG -22 t_as_ne HCl 50 MG 00:00: eded} 00 traMADol traMADol 2021-04 No 1{table traMADol HCl 50 MG HCl 50 MG 1-10 t_as_ne HCl 50 MG 00:00: eded} 00 traMADol traMADol 2021-04 No 1{table traMADol HCl 50 MG HCl 50 MG 1-10 t_as_ne HCl 50 MG 00:00: eded} 00 traMADol traMADol 2021-04 No 1{table traMADol HCl 50 MG HCl 50 MG 1-10 t_as_ne HCl 50 MG 00:00: eded} 00 traMADol traMADol 2021-04 No 1{table traMADol HCl 50 MG HCl 50 MG 1-10 t_as_ne HCl 50 MG 00:00: eded} 00 traMADol traMADol 2021-04 No 1{table traMADol HCl 50 MG HCl 50 MG 1-10 t_as_ne HCl 50 MG 00:00: eded} 00 proMETHazin 2021-04- No 12.5mg 12.5 mg, Univers e 0-26 10-26 Oral, ity of (PHENERGAN) 01:15: 00:34 ONCE, 1 [place] tablet 12.5 00 :00 dose, On Medi brandy mg e Branch 02/06/22 at 2015, Routine OLANZapine 2021-04 Yes 5mg Take 1 Unive rs 5 mg tablet 0-26 tablet by ity of 00:00: mouth in [place] 00 the Medical morning. Branch polyethylen 2021-04 Yes 17g Take 1 Univ ers e glycol 0-26 Packet by ity of 3350 17 00:00: mouth in [place] [facility] 00 the Medical morning. Branch OLANZapine 2021-04 Yes 5mg Take 1 Unive rs 5 mg tablet 0-26 tablet by ity of 00:00: mouth in [place] 00 the Medical morning. Branch polyethylen 2021-04 Yes 17g Take 1 Univ ers e glycol 0-26 Packet by ity of 3350 17 00:00: mouth in [place] gram powder 00 the Medical morning. Branch OLANZapine 2021-04 Yes 5mg Take 1 Unive rs 5 mg tablet 0-26 tablet by ity of 00:00: mouth in [place] 00 the Medical morning. Branch polyethylen 2021-04 Yes 17g Take 1 Univ ers e glycol 0-26 Packet by ity of 3350 17 00:00: mouth in [place] gram powder 00 the Medical morning. Branch OLANZapine 2021-04 Yes 5mg Take 1 Unive rs 5 mg tablet 0-26 tablet by ity of 00:00: mouth in [place] 00 the Medical morning. Branch polyethylen 2021-04 Yes 17g Take 1 Univ ers e glycol 0-26 Packet by ity of 3350 17 00:00: mouth in [place] [facility] 00 the Medical morning. Branch OLANZapine 2021-04- No 5mg Take 1 Univ ers 5 mg tablet 0-26 01-12 tablet by it y of 00:00: 00:00 mouth in [place] 00 :00 the Medical morning. Branch polyethylen 2021-04- No 17g Take 1 Uni vers e glycol 0-26 01-12 Packet by ity o f 3350 17 00:00: 00:00 mouth in [place] [facility] 00 :00 the Medical morning. Branch traZODone 2021-04 Yes 100mg Take 100 Uni vers 100 mg 0-25 mg by ity of tablet 19:56: mouth at [place] [address] bedtime. Medical Branch losartan 2021- Yes 100mg Take 100 Univ ers 100 mg 0-25 mg by ity of tablet 19:56: mouth [place] [address] daily. Medical Branch gabapentin 2021-04 Yes 300mg Take 300 Un you 300 mg 0-25 mg by ity of capsule 19:56: mouth at [place] [address] bedtime. [facility] Branch QUEtiapine 2021-04 Yes 500mg Take 500 Un you 400 mg 0-25 mg by ity of tablet 19:56: mouth in [place] [address] the Medical morning. [place] Patient reports that she has real bad anxiety, her doctor just upped her dosage to 500 mg omeprazole 2021-04 Yes 20mg Take 20 mg U nivers 20 mg 0-25 by mouth ity of tablet 19:56: daily. [address] carvediloL 2021-04 Yes 1 tablet Uni vers 12.5 mg 0-25 with food ity of tablet 19:56: [address] tiZANidine 2021-04 Yes 1 tablet Uni vers 2 mg tablet 0-25 as needed ity of 19:56: [address] traZODone 2021-04 Yes 100mg Take 100 Uni vers 100 mg 0-25 mg by ity of tablet 19:56: mouth at [place] [address] bedtime. Medical Branch losartan 2021-04 Yes 100mg Take 100 Univ ers 100 mg 0-25 mg by ity of tablet 19:56: mouth [place] [address] daily. Medical Branch gabapentin 2021-04 Yes 300mg Take 300 Un you 300 mg 0-25 mg by ity of capsule 19:56: mouth at [place] [address] bedtime. [facility] Branch QUEtiapine 2021-04 Yes 500mg Take 500 Un you 400 mg 0-25 mg by ity of tablet 19:56: mouth in [place] [address] the Medical morning. [place] Patient reports that she has real bad anxiety, her doctor just upped her dosage to 500 mg omeprazole 2021-04 Yes 20mg Take 20 mg U nivers 20 mg 0-25 by mouth ity of tablet 19:56: daily. [address] carvediloL 2021-04 Yes 1 tablet Uni vers 12.5 mg 0-25 with food ity of tablet 19:56: [address] tiZANidine 2021-04 Yes 1 tablet Uni vers 2 mg tablet 0-25 as needed ity of 19:56: [address] traZODone 2021-04 Yes 100mg Take 100 Uni vers 100 mg 0-25 mg by ity of tablet 19:56: mouth at [place] [address] bedtime. Medical Branch losartan 2021-04 Yes 100mg Take 100 Univ ers 100 mg 0-25 mg by ity of tablet 19:56: mouth [place] [address] daily. Medical Branch gabapentin 2021-04 Yes 300mg Take 300 Un you 300 mg 0-25 mg by ity of capsule 19:56: mouth at [place] [address] bedtime. Medical Branch QUEtiapine 2021-04 Yes 500mg Take 500 Un you 400 mg 0-25 mg by ity of tablet 19:56: mouth in [place] [address] the Medical morning. Branch Patient reports that she has real bad anxiety, her doctor just upped her dosage to 500 mg omeprazole 2021-04 Yes 20mg Take 20 mg U nivers 20 mg 0-25 by mouth ity of tablet 19:56: daily. [address] carvediloL 2021-04 Yes 1 tablet Uni vers 12.5 mg 0-25 with food ity of tablet 19:56: [address] tiZANidine 2021-04 Yes 1 tablet Uni vers 2 mg tablet 0-25 as needed ity of 19:56: [address] ARIPiprazol 2021-04- No 10mg Take 10 mg Univers e 10 mg 0-25 10-25 by mouth ity of tablet 15:53: 00:00 daily. [place] 25 :00 [facility] Branch busPIRone 2021-04- No 15mg Take 15 mg U nivers 15 mg 0-25 10-25 by mouth ity of tablet 15:53: 00:00 [facility] Branch OLANZapine 2021-04 Yes 5mg 5 mg, Univer s (ZyPREXA) 0-25 Oral, ity of tablet 5 mg 14:00: DAILY, [place] 00 First dose Medical on [facility] 02/06/22 at 0900, Until Discontinu ed, Routine QUEtiapine 2021-04 Yes 500mg 500 mg, Uni vers (SEROQUEL) 0-25 Oral, ity of tablet 500 14:00: DAILY, [place] mg 00 First dose Medical on [facility] 02/06/22 at 0900, Until Discontinu ed, Routine losartan 2021-04 Yes 100mg 100 mg, Unive rs (COZAAR) 0-25 Oral, ity of tablet 100 14:00: DAILY, [place] mg 00 First dose Medical on Sat Branch 02/06/22 at 0900, Until Discontinu ed, Routine acetaminoph 2021-04 Yes 650mg 650 mg, Un you en 0-25 Oral, ity of (TYLENOL) 06:15: Q6HPRN, [place] tablet 650 34 Starting Medic al mg on Sat Branch 02/06/22 at 0115, Until Discontinu ed, Routine, Pain (scale 1-3) traZODone 2021-04 Yes 100mg 100 mg, Univ ers (DESYREL) 0-25 Oral, QHS, ity of tablet 100 02:00: First dose [place] mg 00 on [facility] Medical 02/05/22 Branch at 2100, Until Discontinu ed, Routine sennosides- 2021-04 Yes 1{tbl} Take 1 Un you docusate 0-25 tablet by ity of sodium 00:00: mouth in [place] 8.6-50 mg 00 the Medical per tablet morning Branch and 1 tablet in the evening. sennosides- 2021-04 Yes 1{tbl} Take 1 Un you docusate 0-25 tablet by ity of sodium 00:00: mouth in [place] 8.6-50 mg 00 the Medical per tablet morning Branch and 1 tablet in the evening. sennosides- 2021-04 Yes 1{tbl} Take 1 Un you docusate 0-25 tablet by ity of sodium 00:00: mouth in [place] 8.6-50 mg 00 the Medical per tablet morning Branch and 1 tablet in the evening. sennosides- 2021-04 Yes 1{tbl} Take 1 Un you docusate 0-25 tablet by ity of sodium 00:00: mouth in [place] 8.6-50 mg 00 the Medical per tablet morning Branch and 1 tablet in the evening. sennosides- 2021-04- No 1{tbl} Take 1 U nivers docusate 0-25 01-12 tablet by ity o f sodium 00:00: 00:00 mouth in [place] 8.6-50 mg 00 :00 the Medical per tablet morning Branch and 1 tablet in the evening. diatrizoate 2021-04- No [id number] 60mL 60 mL, Univers calista-diatriz 0-24 10-24 Oral, ity of oat sod 14:30: 19:22 ONCE, 1 [place] (GASTROGRAF 00 :00 dose, On Medi brandy IN) 66-10 % Mon Branch oral 02/05/22 solution 60 at 0930, mL Routine OLANZapine 2021-04 No 5mg 5 mg, Unive rs (ZYPREXA) 0-24 10-25 Intramuscu ity of injection 5 13:00: 00:10 lar, BID, [place] mg 00 :23 First dose Medical (after Branch last reorder) on 02/05/22 at 0800, Until Discontinu ed, Routine sennosides- 2021-04 Yes 1{tbl} 1 tablet, Univers docusate 0-24 Oral, BID, ity o f sodium 00:45: First dose [place] (SENOKOT-S) 00 on [place] [facility] 8.6-50 mg 02/04/22 Branch per tablet at 1945, 1 tablet Until Discontinu ed, Routine polyethylen 2021-04 Yes 17g 17 g, Unive rs e glycol 0-24 Oral, ity of 3350 powder 00:45: DAILY, [place] 17 g 00 First dose Medical on [place] Branch 02/04/22 at 1945, Until Discontinu ed, Routine HYDROcodone 2021-04 Yes 1{tbl} 1 tablet, Univers -acetaminop 0-24 Oral, ity of hen (NORCO 00:37: Q6HPRN, [place] 5) 5-325 mg 43 Starting [facility] brandy tablet 1 on [place] Branch tablet 02/04/22 at 1937, Until Discontinu ed, Routine, Pain (scale 4-6) ondansetron 2021-04 Yes 4mg 4 mg, Slow Univers (ZOFRAN 0-23 IV Push, ity of (PF)) 16:21: Q6HPRN, [place] injection 4 32 Nausea and Me dical mg Vomiting Branch (N/V), Starting on 02/04/22 at 1121
Do ses of ondansetro n 16 mg and above need to be administer ed via IV piggyback. For Dose >=24mg ECG monitoring is advisable.
bisacodyL 2021-04 Yes 10mg 10 mg, Univer s (DULCOLAX) 0-23 Rectal, ity of suppository 05:00: QHSPRN, [place] 10 mg 00 Starting Medical on [place] 02/04/22 at 0000, Until Discontinu ed, Routine, Constipati on pantoprazol 2021-04 Yes 40mg 40 mg, Univ ers e 0-23 Slow IV ity of (PROTONIX) 00:30: Push, [place] injection 00 Q24H, Medical 40 mg First dose Branch on 02/03/22 at 1930, Until Discontinu ed hydralAZINE 2021-04 Yes 10mg 10 mg, Univ ers (APRESOLINE 0- Slow IV ity o f ) injection 23:45: Push, [place] 10 mg 03 Q6HPRN, Medical Starting Branch on 02/03/22 at 1845, Until Discontinu ed, Routine, DBP=>10 0; SBP=>160 NaCl 0.9% 2021-04- No 1000mL at 125 Uni vers (NS) IV 0- 10-25 mL/hr, IV ity of infusion 23:45: 18:45 Infusion, [place] as 1,000 mL 00 :46 CONTINUOUS Medic al , Starting Branch on 02/03/22 at 1845, Until 02/06/22 at 1345, Routine bisacodyL 2021-04- No 10mg 10 mg, Unive rs (DULCOLAX) 0-22 Rectal, ity o f suppository 23:45: 23:30 [place]CE, 1 [place] 10 mg 00 :00 dose, On Medical [facility] Branch 02/03/22 at 1845, Routine proMETHazin 2021-04 Yes 25mg 25 mg, IV U nivers e 0- Piggyback, ity of (PHENERGAN) 22:37: Q6HPRN, [place] 25 mg in 45 Starting Medical NaCl 0.9% on Sat Branch (NS) 50 mL 02/03/22 IV at 1737, piggyback Until Discontinu ed, LOUIS, Nausea and Vomiting (N/V), N/V unresponsi ve to Ondansetro n morpHINE (2 2021-04 Yes 2mg 2 mg, Slow Univers mg/mL) 0- IV Push, ity of injection 2 22:35: Q4HPRN, [place] mg 47 Starting Medical on Sat Branch 02/03/22 at 1735, Until Discontinu ed, Routine, Pain (scale 7-10) proMETHazin 2021-04 No 25mg 25 mg, IV Univers e 02-03 Piggyback, ity of (PHENERGAN) 18:30: 18:27 [place]CE, 1 [place] 25 mg in 00 :00 dose, On Medical NaCl 0.9% Sat Branch (NS) 50 mL 02/03/22 IV at 1330, piggyback [place] iopamidol 2021-04- No [id number] 80mL 80 mL, Univers (ISOVUE 02-03 Intravenou ity o f 370-500 mL) 17:45: 18:00 s, ONCE, 1 [place] injection 00 :00 dose, On Medica l 80 mL Sat Branch 02/03/22 at 1300, Routine gabapentin 2021-04- No 1{capsu Take 1 U nivers 300 mg 02-03 le} capsule by ity of capsule 17:32: 00:00 mouth in [place] 31 :00 the Medical morning Branch and 1 capsule at noon and 1 capsule in the evening. NaCl 0.9% 2021-04 No 1000mL at 999 Uni vers (NS) bolus 0- mL/hr, ity of infusion 16:45: 16:49 1,000 mL, [place] as 1,000 mL 00 :00 IV Medical Piggyback, Branch ONCE, 1 dose, On 02/03/22 at 1145, STAT ondansetron 2021-04 No 4mg 4 mg, Slow Univers (ZOFRAN 02-03 IV Push, ity of (PF)) 16:15: 16:08 ONCE, 1 [place] injection 4 00 :00 dose, On Medi brandy mg Sat Branch 02/03/22 at 1115, [place] morpHINE (4 2021-04 No 4mg 4 mg, Slow Univers mg/mL) 02-03 IV Push, ity of injection 4 16:15: 16:09 ONCE, 1 [place] mg 00 :00 dose, On Medical Sat Branch 02/03/22 at 1115, STAT labetaloL 2021-04 No 10mg 10 mg, Unive rs (NORMODYNE) 0-15 10-15 Slow IV ity of injection 00:45: 00:05 Push, [place] 10 mg 00 :00 ONCE, 1 Medical dose, On Branch Sat01/26/22 at 1945, Routine morpHINE (4 2021-04- No 4mg 4 mg, Slow Univers mg/mL) 0-15 10-15 IV Push, ity of injection 4 00:00: 00:05 ONCE, 1 [place] mg 00 :00 dose, On Medical Fri Branch 01/26/22 at 1900, STAT ketorolac 2021-04- No 30mg 30 mg, Unive rs (TORADOL) 0-14 10-14 Slow IV ity of injection 23:00: 21:56 Push, [place] 30 mg 00 :00 ONCE, 1 Medical dose, On Branch Sat01/26/22 at 1800, Routine ondansetron 2021-04 No 4mg 4 mg, Slow Univers (ZOFRAN 0-14 10-14 IV Push, ity of (PF)) 22:00: 21:56 ONCE, 1 [place] injection 4 00 :00 dose, On Medi brandy mg Sat Branch 01/26/22 at 1700, [place] morpHINE (4 2021-04- No 4mg 4 mg, Slow Univers mg/mL) 0-14 10-14 IV Push, ity of injection 4 22:00: 21:56 ONCE, 1 [place] mg 00 :00 dose, On Medical Fri Branch 01/26/22 at 1700, STAT iopamidol 2021-04- No [id number] 75mL 75 mL, U nivers (ISOVUE 0-14 10-14 Intravenou ity o f 370-500 mL) 21:30: 21:45 s, ONCE, 1 [place] injection 00 :00 dose, On Medica l 75 mL Sat Branch 01/26/22 at 1645, Routine carvediloL 2021-04 Yes 1 tablet Uni vers 12.5 mg 0-14 with food ity of tablet 19:45: [place] 06 Medical Branch gabapentin 2021-04 Yes 1{capsu Take 1 Un you 300 mg 0-14 le} capsule by ity of capsule 19:45: mouth in [place] 06 the Medical morning Branch and 1 capsule at noon and 1 capsule in the evening. tiZANidine 2021-04 Yes 1 tablet Uni vers 2 mg tablet 0-14 as needed ity of 19:45: [place] 06 Medical Branch Tramadol 2021-04- No [id number] 100mg Take 1 Unive rs 100 mg 0-14 -22 tablet by ity of tablet 00:00: 04:59 mouth [place] 00 :00 every 24 Medical (twenty-fo Branch ur) hours as needed for Pain (scale 4-6) or Pain (scale 7-10) for up to 7 days. Indication s: acute pain ondansetron No 4mg 4 mg, Slow Univers (ZOFRAN 11-02 IV Push, ity of (PF)) 12:30: 12:28 ONCE, 1 [place] injection 4 00 :00 dose, On Medi brandy mg [facility] Branch 11/02/21 at 0730, [place] morpHINE (4 No 4mg 4 mg, Slow Univers mg/mL) 11-02 IV Push, ity of injection 4 12:30: 12:30 ONCE, 1 [place] mg 00 :00 dose, On Medical [facility] Branch 11/02/21 at 0730, STAT iopamidol 2021- No [id number] 50mL 50 mL, U nivers (ISOVUE 11-02 Intravenou ity o f 370-500 mL) 12:16: 12:16 s, ONCE, 1 [place] injection 00 :00 dose, On Medica l 50 mL [facility] Branch 11/02/21 at 0730, Routine ondansetron No 4mg 4 mg, Slow Univers (ZOFRAN 11-02 IV Push, ity of (PF)) 11:00: 10:41 ONCE, 1 [place] injection 4 00 :00 dose, On Medi brandy mg [facility] Branch 11/02/21 at 0600, LOUIS FENTanyl PF No 75ug 75 mcg, Un you (SUBLIMAZE 11-02 Slow IV ity o f (PF)) 11:00: 10:42 Push, [place] injection 00 :00 ONCE, 1 Medical 75 mcg dose, On Branch [facility] 11/02/21 at 0600, STAT ondansetron Yes [id number] 4mg Take 1 Univers 4 mg 7-21 tablet by ity of disintegrat 00:00: mouth [place] ing tablet 00 every 8 Medica l (eight) Branch hours as needed for Nausea and Vomiting (N/V). ondansetron 2021-0 Yes [id number] 4mg Take 1 Univers 4 mg 7-21 tablet by ity of disintegrat 00:00: mouth [place] ing tablet 00 every 8 Medica l (eight) Branch hours as needed for Nausea and Vomiting (N/V). ondansetron 2021-0 Yes [id number] 4mg Take 1 Univers 4 mg 7-21 tablet by ity of disintegrat 00:00: mouth [place] ing tablet 00 every 8 Medica l (eight) Branch hours as needed for Nausea and Vomiting (N/V). ondansetron 2021-0 Yes [id number] 4mg Take 1 Univers 4 mg 7-21 tablet by ity of disintegrat 00:00: mouth [place] ing tablet 00 every 8 Medica l (eight) Branch hours as needed for Nausea and Vomiting (N/V). ondansetron 2021-0 Yes [id number] 4mg Take 1 Univers 4 mg 7-21 tablet by ity of disintegrat 00:00: mouth [place] ing tablet 00 every 8 Medica l (eight) Branch hours as needed for Nausea and Vomiting (N/V). ondansetron 2021-0 Yes [id number] 4mg Take 1 Univers 4 mg 7-21 tablet by ity of disintegrat 00:00: mouth [place] ing tablet 00 every 8 Medica l (eight) Branch hours as needed for Nausea and Vomiting (N/V). ondansetron 2021-0 2022- No [id number] 4mg Take 1 Univers 4 mg 7-21 01-12 tablet by ity of disintegrat 00:00: 00:00 mouth [place] tablet 00 :00 every 8 Medica l (eight) Branch hours as needed for Nausea and Vomiting (N/V). ondansetron 2021-0 2022- No [id number] 4mg Take 1 Univers 4 mg 7-21 01-12 tablet by ity of disintegrat 00:00: 00:00 mouth [place] tablet 00 :00 every 8 Medica l (eight) Branch hours as needed for Nausea and Vomiting (N/V). ARIPiprazol 2021-0 Yes 10mg Take 10 mg Univers e 10 mg 6-18 by mouth ity of tablet 22:55: daily. [address] busPIRone 2021-0 Yes 15mg Take 15 mg Un you 15 mg 6-18 by mouth ity of tablet 22:55: as needed. [address] omeprazole 2021-0 Yes 20mg Take 20 mg U nivers 20 mg 6-18 by mouth ity of tablet 22:55: daily. [address] ARIPiprazol 2021-0 Yes 10mg Take 10 mg Univers e 10 mg 6-18 by mouth ity of tablet 22:55: daily. [address] busPIRone 2021-0 Yes 15mg Take 15 mg Un you 15 mg 6-18 by mouth ity of tablet 22:55: as needed. [address] omeprazole 2021-0 Yes 20mg Take 20 mg U nivers 20 mg 6-18 by mouth ity of tablet 22:55: daily. [address] ARIPiprazol 2021-0 Yes 10mg Take 10 mg Univers e 10 mg 6-18 by mouth ity of tablet 22:55: daily. [address] busPIRone 2021-0 Yes 15mg Take 15 mg Un you 15 mg 6-18 by mouth ity of tablet 22:55: as needed. [address] omeprazole 2021-0 Yes 20mg Take 20 mg U nivers 20 mg 6-18 by mouth ity of tablet 22:55: daily. [address] ARIPiprazol 2021-0 Yes 10mg Take 10 mg Univers e 10 mg 6-18 by mouth ity of tablet 22:55: daily. [address] busPIRone 2021-0 Yes 15mg Take 15 mg Un you 15 mg 6-18 by mouth ity of tablet 22:55: as needed. [address] omeprazole 2021-0 Yes 20mg Take 20 mg U nivers 20 mg 6-18 by mouth ity of tablet 22:55: daily. [address] ARIPiprazol 2021-0 Yes 10mg Take 10 mg Univers e 10 mg 6-18 by mouth ity of tablet 22:55: daily. [address] busPIRone 2022-0 Yes 15mg Take 15 mg Un you 15 mg 6-18 by mouth ity of tablet 22:55: as needed. [address] omeprazole Yes 20mg Take 20 mg U nivers 20 mg 6-18 by mouth ity of tablet 22:55: daily. [address] HYDROmorphO Yes .2mg 0.2 mg, Uni [...] [place] injection 31 :00 Q5MIN PRN, Medi barndy 25 mcg 4 doses, Branch Starting on [...] ity of 0.9 % 13:21: 14:39 on Fri [place] irrigation 00 :43 09/29/[address] [facility] ical solution 0821, Branch Until Sat09/29/21 [...] [place] (SENSORCAIN 00 :43 09/29/21 at [place] dical E MPF) 0.5 0806, Branch % [...] Until Sat09/29/21 at 0944, Routine, Intra-op lactated 2021-0 2021- No IV Univers ringers IV 09-29 [...] Until Sat09/29/21 at 0944, Routine, Intra-op lactated 2021-0 2021- No 1000mL at 42 Unive rs ringers IV 09-29 mL/hr, ity of infusion 11:30: 11:49 1,000 mL, [place] as 1,000 mL 00 :00 IV Medical Infusion, Branch ONCE, 1 dose, On Sat09/29/21 at 0630, Routine, DSU Pre-op lactated 0 2021- No 1000mL at 42 Unive rs ringers IV 09-29 mL/hr, ity of infusion 11:30: 11:49 1,000 mL, [place] 1,000 mL 00 :00 IV Medical Infusion, Branch ONCE, 1 dose, On Sat09/29/21 at 0630, Routine, DSU Pre-op traZODone 2021-0 Yes 100mg Take 100 Uni vers 100 mg 6-17 mg by ity of tablet 11:00: mouth at [place] 16 bedtime. Medical Branch losartan 2021-0 Yes 100mg Take 100 Univ ers 100 mg 6-17 mg by ity of tablet 11:00: mouth [place] 16 daily. Medical Branch gabapentin 2021-0 Yes [...] by mouth ity of tablet 11:00: daily. [place] [address] Medical Branch busPIRone 2021-0 Yes 15mg Take 15 mg Un you 15 mg 6-17 by mouth ity of tablet 11:00: as needed. [place] [address] Medical Branch omeprazole 2021-0 Yes 20mg Take 20 mg U nivers 20 mg 6-17 by mouth ity of tablet 11:00: daily. [place] [address] Medical Branch traZODone 2021-0 Yes 100mg Take 100 Uni vers 100 mg 6-17 mg by ity of tablet 11:00: mouth at [place] [address] bedtime. Medical Branch losartan 2021-0 Yes 100mg Take 100 Univ ers 100 mg 6-17 mg by ity of tablet 11:00: mouth [place] 16 daily. Medical Branch gabapentin 2021-0 Yes 300mg Take 300 Un you 300 mg 6-17 mg by ity of capsule 11:00: mouth 2 [place] [address] (two) Medical times Branch daily. QUEtiapine 2021-0 Yes 400mg Take 400 Un you (SEROQUEL) 6-17 mg by ity of 400 mg 11:00: mouth [place] tablet 16 daily. Medical Patient Branch doesn't like to take it ARIPiprazol 2021-0 Yes 10mg Take 10 mg Univers e 10 mg 6-17 by mouth ity of tablet 11:00: daily. [place] [address] Medical Branch busPIRone 2021-0 Yes 15mg Take 15 mg Un you 15 mg 6-17 by mouth ity of tablet 11:00: as needed. [place] [address] Medical Branch omeprazole 2021-0 Yes 20mg Take 20 mg U nivers 20 mg 6-17 by mouth ity of tablet 11:00: daily. [place] [address] Medical Branch traZODone 2021-0 Yes 100mg Take 100 Uni vers 100 mg 6-17 mg by ity of tablet 11:00: mouth at [place] [address] bedtime. Medical Branch losartan 2021-0 Yes 100mg Take 100 Univ ers 100 mg 6-17 mg by ity of tablet 11:00: mouth [place] 16 daily. Medical Branch gabapentin 2021-0 Yes 300mg Take 300 Un you 300 mg 6-17 mg by ity of capsule 11:00: mouth 2 [place] [address] (two) Medical times Branch daily. QUEtiapine 2021-0 Yes 400mg Take 400 Un you (SEROQUEL) 6-17 mg by ity of 400 mg 11:00: mouth [place] tablet 16 daily. Medical Patient Branch doesn't like to take it ARIPiprazol 2021-0 Yes 10mg Take 10 mg Univers e 10 mg 6-17 by mouth ity of tablet 11:00: daily. [place] [address] Medical Branch busPIRone 2021-0 Yes 15mg Take 15 mg Un you 15 mg 6-17 by mouth ity of tablet 11:00: as needed. [place] [address] Medical Branch omeprazole 2021-0 Yes 20mg Take 20 mg U nivers 20 mg 6-17 by mouth ity of tablet 11:00: daily. [place] [address] Medical Branch traZODone 2021-0 Yes 100mg Take 100 Uni vers 100 mg 6-17 mg by ity of tablet 11:00: mouth at [place] 16 bedtime. Medical Branch losartan 2021-0 Yes 100mg Take 100 Univ ers 100 mg 6-17 mg by ity of tablet 11:00: mouth [place] 16 daily. Medical Branch gabapentin 2021-0 Yes 300mg Take 300 Un you 300 mg 6-17 mg by ity of capsule 11:00: mouth 2 [place] [address] (two) Medical times Branch daily. QUEtiapine 2021-0 Yes 400mg Take 400 Un you (SEROQUEL) 6-17 mg by ity of 400 mg 11:00: mouth [place] tablet 16 daily. Medical Patient Branch doesn't like to take it traZODone 2021-0 Yes 100mg Take 100 Uni vers 100 mg 6-17 mg by ity of tablet 11:00: mouth at [place] [address] bedtime. Medical Branch losartan 2021-0 Yes 100mg Take 100 Univ ers 100 mg 6-17 mg by ity of tablet 11:00: mouth [place] 16 daily. Medical Branch gabapentin 2021-0 Yes 300mg Take 300 Un you 300 mg 6-17 mg by ity of capsule 11:00: mouth 2 [place] 16 (two) Medical times Branch daily. QUEtiapine 2-0 Yes 400mg Take 400 Un you (SEROQUEL) 6-17 mg by ity of 400 mg 11:00: mouth [place] tablet 16 daily. Medical Patient Branch doesn't like to take it traZODone 2021-0 Yes 100mg Take 100 Uni vers 100 mg 6-17 mg by ity of tablet 11:00: mouth at [place] 16 bedtime. Medical Branch losartan 2021-0 Yes 100mg Take 100 Univ ers 100 mg 6-17 mg by ity of tablet 11:00: mouth [place] 16 daily. Medical Branch gabapentin 2021-0 Yes 300mg Take 300 Un you 300 mg 6-17 mg by ity of capsule 11:00: mouth 2 [place] 16 (two) Medical times Branch daily. QUEtiapine 2021-0 Yes 400mg Take 400 Un you (SEROQUEL) 6-17 mg by ity of 400 mg 11:00: mouth [place] tablet 16 daily. Medical Patient Branch doesn't like to take it traZODone 2021-0 Yes 100mg Take 100 Uni vers 100 mg 6-17 mg by ity of tablet 11:00: mouth at [place] 16 bedtime. Medical Branch losartan 2021-0 Yes 100mg Take 100 Univ ers 100 mg 6-17 mg by ity of tablet 11:00: mouth [place] 16 daily. Medical Branch gabapentin 2021-0 Yes 300mg Take 300 Un you 300 mg 6-17 mg by ity of capsule 11:00: mouth [address] [place] [address] 16 (two) Medical times Branch daily. QUEtiapine 2021-0 Yes 400mg Take 400 Un you (SEROQUEL) 6-17 mg by ity of 400 mg 11:00: mouth [place] tablet 16 daily. Medical Patient Branch doesn't like to take it traZODone 2021-0 Yes 100mg Take 100 Uni vers 100 mg 6-17 mg by ity of tablet 11:00: mouth at [place] 16 bedtime. Medical Branch losartan 2021-0 Yes 100mg Take 100 Univ ers 100 mg 6-17 mg by ity of tablet 11:00: mouth [place] 16 daily. Medical Branch gabapentin 2021-0 Yes 300mg Take 300 Un you 300 mg 6-17 mg by ity of capsule 11:00: mouth 2 [place] 16 (two) Medical times Branch daily. QUEtiapine 2022-0 Yes 400mg Take 400 Un you (SEROQUEL) 6-17 mg by ity of 400 mg 11:00: mouth [place] tablet 16 daily. Medical Patient Branch doesn't like to take it aspirin 325 2021-0 2021- No [id number] 325mg Take 1 Univers mg tablet 6-17 07-16 4106 tablet by ity of 00:00: 04:59 mouth 2 [place] 00 :00 (two) Medical times [place] daily with meals for 28 days. aspirin 325 2021-0 2021- No [id number] 325mg Take 1 Univers mg tablet 09-29 4106 tablet by ity of 00:00: 04:59 mouth 2 [place] 00 :00 (two) [facility] times [place] daily with meals for 28 days. aspirin 325 2021-0 2021- No [id number] 325mg Take 1 Univers mg tablet 09-29 4106 tablet by ity of 00:00: 04:59 mouth 2 [place] 00 :00 (two) [facility] times [place] daily with meals for 28 days. aspirin 325 2021-0 2021- No [id number] 325mg Take 1 Univers mg tablet 09-29 4106 tablet by ity of 00:00: 04:59 mouth 2 [place] 00 :00 (two) [facility] daily with meals for 28 days. ARIPiprazol 2021-0 Yes 10mg Take 10 mg Univers e 10 mg 6-09 by mouth ity of tablet 15:58: daily. [address] busPIRone 2021-0 Yes 15mg Take 15 mg Un you 15 mg 6-09 by mouth ity of tablet 15:58: as needed. [address] omeprazole 2021-0 Yes 20mg Take 20 mg U nivers 20 mg 6-09 by mouth ity of tablet 15:58: daily. [address] ARIPiprazol 2021-0 Yes 10mg Take 10 mg Univers e 10 mg 6-09 by mouth ity of tablet 15:58: daily. [address] busPIRone 2021-0 Yes 15mg Take 15 mg Un you 15 mg 6-09 by mouth ity of tablet 15:58: as needed. [address] omeprazole 2021-0 Yes 20mg Take 20 mg U nivers 20 mg 6-09 by mouth ity of tablet 15:58: daily. [address] ARIPiprazol 2021-0 Yes 10mg Take 10 mg Univers e 10 mg 6-09 by mouth ity of tablet 15:58: daily. [address] busPIRone 2021-0 Yes 15mg Take 15 mg Un you 15 mg 6-09 by mouth ity of tablet 15:58: as needed. [place] 03 Medical Branch omeprazole 2-0 Yes 20mg Take 20 mg U nivers 20 mg 6-09 by mouth ity of tablet 15:58: daily. [place] 03 Medical Branch traZODone 2022-0 Yes 100mg Take [...] by ity of capsule 15:51: mouth 2 [place] 39 (two) Medical times Branch daily. QUEtiapine [...] mouth [place] 28 daily. Medical Branch gabapentin 0 Yes 300mg [...] at [place] 28 bedtime. Medical Branch losartan 0 Yes 100mg Take 100 Univ ers 100 mg 5-27 mg by ity of tablet 17:57: mouth [place] 28 daily. Medical Branch gabapentin 0 Yes 300mg Take 300 Un you 300 mg 5-27 mg by ity of capsule 17:57: mouth 2 [place] 28 (two) Medical times Branch daily. QUEtiapine 0 Yes 400mg Take 400 Un you (SEROQUEL) 5-27 mg by ity of 400 mg 17:57: mouth [place] tablet 28 daily. Medical Patient Branch doesn't like to take it proMETHazin 2021- No 25mg Take 25 mg Univers [...] Branch 2100, Until Discontinu ed, Routine lactated 2022-0 2022- No 500mL at 999 Unive rs ringers IV 5-27 05-27 mL/hr, 500 it y of infusion 01:30: 01:17 mL, [place] 500 mL 00 :00 Intravenou Medical s, ONCE, 1 Branch dose, On [place] 09/07/21 at 2030, Routine lipase-prot 0 Yes [id number] 1{capsu Take 1 Univers ease-amylas 5-27 le} capsule by it y of e 00:00: mouth 3 [place] 12,000-38,0 00 (three) Medic al 00 -60,000 times Branch unit daily with capsule meals. psyllium Yes [id number] 1{packe Take 1 Univers husk 3.4 5-27 t} Packet by ity of gram oral 00:00: mouth 2 [place] powder 00 (two) Medical packet times Branch daily. sucralfate Yes [id number] 1g Take 1 U nivers 1 gram 5-27 tablet by ity of tablet 00:00: mouth [place] 00 before Medical meals and Branch at bedtime. ursodioL Yes [id number] 500mg Take 1 Un you 500 mg 5-27 tablet by ity of tablet 00:00: mouth 2 [place] 00 (two) Medical times Branch daily. dicyclomine Yes [id number] 10mg Take 1 Univers 10 mg 5-27 capsule by ity of capsule 00:00: mouth 3 [place] 00 (three) Medical times Branch daily. proMETHazin Yes [id number] 12.5mg Take 0.5 Univers e 25 mg [...] Indication s: chronic pain pantoprazol 0 Yes [id number] 40mg Take 1 Univers e 40 mg EC 5-27 tablet by ity of tablet 00:00: mouth [place] 00 daily. Medical Branch lipase-prot 0 Yes [id number] 1{capsu Take 1 Univers ease-amylas 5-27 le} capsule by it y of e 00:00: mouth 3 [place] 12,000-38,0 00 (three) Medic al 00 -60,000 times Branch unit daily with capsule meals. psyllium Yes [id number] 1{packe Take 1 Univers husk 3.4 5-27 t} Packet by ity of gram oral 00:00: mouth 2 [place] powder 00 (two) Medical packet times Branch daily. sucralfate Yes [id number] 1g Take 1 U nivers 1 gram 5-27 tablet by ity of tablet 00:00: mouth [place] 00 before Medical meals and Branch at bedtime. ursodioL Yes [id number] 500mg Take 1 Un you 500 mg 5-27 tablet by ity of tablet 00:00: mouth 2 [place] 00 (two) Medical times Branch daily. dicyclomine Yes [id number] 10mg Take 1 Univers 10 mg 5-27 capsule by ity of capsule 00:00: mouth 3 [place] 00 (three) Medical times Branch daily. proMETHazin Yes [id number] 12.5mg Take 0.5 Univers e 25 mg [...] 7-10). Indication s: chronic pain pantoprazol Yes [id number] 40mg Take 1 Univers e 40 mg EC 5-27 tablet by ity of tablet 00:00: mouth [place] 00 daily. Medical Branch lipase-prot 0 Yes [id number] 1{capsu Take 1 Univers ease-amylas 5-27 le} capsule by it y of e 00:00: mouth 3 [place] 12,000-38,0 00 (three) Medic al 00 -60,000 times Branch unit daily with capsule meals. psyllium 0 Yes [id number] 1{packe Take 1 Univers husk 3.4 5-27 t} Packet by ity of gram oral 00:00: mouth 2 [place] powder 00 (two) Medical packet times Branch daily. ursodioL 0 Yes [id number] 500mg Take 1 Un you 500 mg 5-27 tablet by ity of tablet 00:00: mouth 2 [place] 00 (two) Medical times Branch daily. dicyclomine 0 Yes [id number] 10mg Take 1 Univers 10 mg 5-27 capsule by ity of capsule 00:00: mouth 3 [place] 00 (three) Medical times Branch daily. proMETHazin 0 Yes [id number] 12.5mg Take 0.5 Univers e 25 mg 5-27 tablets by ity of tablet 00:00: mouth [place] 00 every 6 Medical (six) Branch hours as needed for Nausea and Vomiting (N/V). HYDROcodone 0 Yes [id number] 1{tbl} Take 1 Un you -acetaminop 5-27 tablet by ity of hen 7.5-325 00:00: mouth 2 [place] mg per 00 (two) Medical tablet times Branch daily as needed (Pain scal 7-10). Indication s: chronic pain lipase-prot 0 Yes [id number] 1{capsu Take 1 Univers ease-amylas 5-27 le} capsule by it y of e 00:00: mouth 3 [place] 12,000-38,0 00 (three) Medic al 00 -60,000 times Branch unit daily with capsule meals. psyllium Yes [id number] 1{packe Take 1 Univers husk 3.4 5-27 t} Packet by ity of gram oral 00:00: mouth 2 [place] powder 00 (two) Medical packet times Branch daily. ursodioL 0 Yes [id number] 500mg Take 1 Un you 500 mg 5-27 tablet by ity of tablet 00:00: mouth 2 [place] 00 (two) Medical times Branch daily. dicyclomine 2021-0 Yes [id number] 10mg Take 1 Univers 10 mg 5-27 capsule by ity of capsule 00:00: mouth 3 [place] 00 (three) Medical times Branch daily. proMETHazin 2021-0 Yes [id number] 12.5mg Take 0.5 Univers e 25 mg [...] Indication s: chronic pain lipase-prot 2021-0 Yes [id number] 1{capsu Take 1 Univers ease-amylas 5-27 le} capsule by it y of e 00:00: mouth 3 [place] 12,000-38,0 00 (three) Medic al 00 -60,000 times Branch unit daily with capsule meals. psyllium Yes [id number] 1{packe Take 1 Univers husk 3.4 5-27 t} Packet by ity of gram oral 00:00: mouth 2 [place] powder 00 (two) Medical packet times Branch daily. ursodioL Yes [id number] 500mg Take 1 Un you 500 mg 5-27 tablet by ity of tablet 00:00: mouth 2 [place] 00 (two) Medical times Branch daily. dicyclomine Yes [id number] 10mg Take 1 Univers 10 mg 5-27 capsule by ity of capsule 00:00: mouth 3 [place] 00 (three) Medical times Branch daily. proMETHazin Yes [id number] 12.5mg Take 0.5 Univers e 25 mg [...] Indication s: chronic pain lipase-prot 2021-0 Yes [id number] 1{capsu Take 1 Univers ease-amylas 5-27 le} capsule by it y of e 00:00: mouth 3 [place] 12,000-38,0 00 (three) Medic al 00 -60,000 times Branch unit daily with capsule meals. psyllium 2022-0 Yes [id number] 1{packe Take 1 Univers husk 3.4 5-27 t} Packet by ity of gram oral 00:00: mouth 2 [place] powder 00 (two) Medical packet times Branch daily. ursodioL 0 Yes [id number] 500mg Take 1 Un you 500 mg 5-27 tablet by ity of tablet 00:00: mouth 2 [place] 00 (two) Medical times Branch daily. dicyclomine 0 Yes [id number] 10mg Take 1 Univers 10 mg 5-27 capsule by ity of capsule 00:00: mouth 3 [place] 00 (three) Medical times Branch daily. proMETHazin Yes [id number] 12.5mg Take 0.5 Univers e 25 mg [...] 7-10). Indication s: chronic pain lipase-prot Yes [id number] 1{capsu Take 1 Univers ease-amylas 5-27 le} capsule by it y of e 00:00: mouth 3 [place] 12,000-38,0 00 (three) Medic al 00 -60,000 times Branch unit daily with capsule meals. psyllium Yes [id number] 1{packe Take 1 Univers husk 3.4 5-27 t} Packet by ity of gram oral 00:00: mouth 2 [place] powder 00 (two) Medical packet times Branch daily. ursodioL 0 Yes [id number] 500mg Take 1 Un you 500 mg 5-27 tablet by ity of tablet 00:00: mouth 2 [place] 00 (two) Medical times Branch daily. dicyclomine 0 Yes [id number] 10mg Take 1 Univers 10 mg 5-27 capsule by ity of capsule 00:00: mouth 3 [place] 00 (three) Medical times Branch daily. proMETHazin 0 Yes [id number] 12.5mg Take 0.5 Univers e 25 mg [...] Indication s: chronic pain lipase-prot 2021-0 Yes [id number] 1{capsu Take 1 [facility] ease-amylas 5-27 le} capsule by it y of e 00:00: mouth 3 [place] 12,000-38,0 00 (three) Medic al 00 -60,000 times Branch unit daily with capsule meals. psyllium Yes [id number] 1{packe Take 1 Univers husk 3.4 5-27 t} Packet by ity of gram oral 00:00: mouth 2 [place] powder 00 (two) Medical packet times Branch daily. ursodioL 0 Yes [id number] 500mg Take 1 Un you 500 mg 5-27 tablet by ity of tablet 00:00: mouth 2 [place] 00 (two) Medical times Branch daily. dicyclomine 0 Yes [id number] 10mg Take 1 Univers 10 mg 5-27 capsule by ity of capsule 00:00: mouth 3 [place] 00 (three) Medical times Branch daily. proMETHazin 0 Yes [id number] 12.5mg Take 0.5 Univers e 25 mg [...] Indication s: chronic pain lipase-prot 2021-0 Yes [id number] 1{capsu Take 1 [facility] ease-amylas 5-27 le} capsule by it y of e 00:00: mouth 3 [place] 12,000-38,0 00 (three) Medic al 00 -60,000 times Branch unit daily with capsule meals. psyllium 2021-0 Yes [id number] 1{packe Take 1 [facility] husk 3.4 5-27 t} Packet by ity of gram oral 00:00: mouth 2 [place] powder 00 (two) Medical packet times Branch daily. ursodioL 2021-0 Yes [id number] 500mg Take 1 Un you 500 mg 5-27 tablet by ity of tablet 00:00: mouth 2 [place] 00 (two) Medical times Branch daily. dicyclomine 2021-0 Yes [id number] 10mg Take 1 [facility] 10 mg 5-27 capsule by ity of capsule 00:00: mouth 3 [place] 00 (three) Medical times Branch daily. proMETHazin 2021-0 Yes [id number] 12.5mg Take 0.5 [facility] e 25 mg [...] Indication s: chronic pain lipase-prot 2021-0 Yes [id number] 1{capsu Take 1 [facility] ease-amylas 5-27 le} capsule by it y of e 00:00: mouth 3 [place] 12,000-38,0 00 (three) Medic al 00 -60,000 times Branch unit daily with capsule meals. psyllium 2021-0 Yes [id number] 1{packe Take 1 [facility] husk 3.4 5-27 t} Packet by ity of gram oral 00:00: mouth 2 [place] powder 00 (two) Medical packet times Branch daily. ursodioL 2021-0 Yes [id number] 500mg Take 1 Un you 500 mg 5-27 tablet by ity of tablet 00:00: mouth 2 [place] 00 (two) Medical times Branch daily. dicyclomine 2021-0 Yes [id number] 10mg Take 1 [facility] 10 mg 5-27 capsule by ity of capsule 00:00: mouth 3 [place] 00 (three) Medical times Branch daily. proMETHazin 2021-0 Yes [id number] 12.5mg Take 0.5 [facility] e 25 mg [...] Indication s: chronic pain lipase-prot 2021-0 Yes [id number] 1{capsu Take 1 [facility] ease-amylas 5-27 le} capsule by it y of e 00:00: mouth 3 [place] 12,000-38,0 00 (three) Medic al 00 -60,000 times Branch unit daily with capsule meals. psyllium Yes [id number] 1{packe Take 1 [facility] husk 3.4 5-27 t} Packet by ity of gram oral 00:00: mouth 2 [place] powder 00 (two) Medical packet times Branch daily. ursodioL Yes [id number] 500mg Take 1 Un you 500 mg 5-27 tablet by ity of tablet 00:00: mouth 2 [place] 00 (two) Medical times Branch daily. dicyclomine 0 Yes [id number] 10mg Take 1 [facility] 10 mg 5-27 capsule by ity of capsule 00:00: mouth 3 [place] 00 (three) Medical times Branch daily. proMETHazin 0 Yes [id number] 12.5mg Take 0.5 [facility] e 25 mg [...] Indication s: chronic pain lipase-prot 2021-0 Yes [id number] 1{capsu Take 1 [facility] ease-amylas 5-27 le} capsule by it y of e 00:00: mouth 3 [place] 12,000-38,0 00 (three) Medic al 00 -60,000 times Branch unit daily with capsule meals. psyllium 2021-0 Yes [id number] 1{packe Take 1 [facility] husk 3.4 5-27 t} Packet by ity of gram oral 00:00: mouth 2 [place] powder 00 (two) Medical packet times Branch daily. ursodioL 2021-0 Yes [id number] 500mg Take 1 Un you 500 mg 5-27 tablet by ity of tablet 00:00: mouth 2 [place] 00 (two) Medical times Branch daily. dicyclomine 2021-0 Yes [id number] 10mg Take 1 [facility] 10 mg 5-27 capsule by ity of capsule 00:00: mouth 3 00 (three) Medical times Branch daily. proMETHazin 2021-0 Yes [id number] 12.5mg Take 0.5 [facility] e 25 mg [...] Indication s: chronic pain lipase-prot 0 Yes [id number] 1{capsu Take 1 [facility] ease-amylas 5-27 le} capsule by it y of e 00:00: mouth 3 [place] 12,000-38,0 00 (three) Medic al 00 -60,000 times Branch unit daily with capsule meals. psyllium 2021-0 Yes [id number] 1{packe Take 1 [facility] husk 3.4 5-27 t} Packet by ity of gram oral 00:00: mouth 2 [place] powder 00 (two) Medical packet times Branch daily. ursodioL 2021-0 Yes [id number] 500mg Take 1 Un you 500 mg 5-27 tablet by ity of tablet 00:00: mouth 2 [place] 00 (two) Medical times Branch daily. dicyclomine 2021-0 Yes [id number] 10mg Take 1 [facility] 10 mg 5-27 capsule by ity of capsule 00:00: mouth 3 00 (three) Medical times Branch daily. proMETHazin 2021-0 Yes [id number] 12.5mg Take 0.5 [facility] e 25 mg [...] (Pain scal 7-10). Indication s: chronic pain psyllium 2021-0 Yes [id number] 1{packe Take 1 [facility] husk 3.4 5-27 t} Packet by ity of gram oral 00:00: mouth 2 [place] powder 00 (two) Medical packet times Branch daily. dicyclomine 2021-0 Yes [id number] 10mg Take 1 [facility] 10 mg 5-27 capsule by ity of capsule 00:00: mouth 3 00 (three) Medical times Branch daily. proMETHazin 2021-0 Yes [id number] 12.5mg Take 0.5 [facility] e 25 mg [...] (Pain scal 7-10). Indication s: chronic pain psyllium 2021-0 Yes [id number] 1{packe Take 1 [facility] husk 3.4 5-27 t} Packet by ity of gram oral 00:00: mouth 2 [place] powder 00 (two) Medical packet times Branch daily. dicyclomine 2022-0 Yes [id number] 10mg Take 1 [facility] 10 mg 5-27 capsule by ity of capsule 00:00: mouth 3 [place] 00 (three) Medical times Branch daily. proMETHazin 2022-0 Yes [id number] 12.5mg Take 0.5 [facility] e 25 mg [...] (Pain scal 7-10). Indication s: chronic pain psyllium Yes [id number] 1{packe Take 1 [facility] husk 3.4 5-27 t} Packet by ity of gram oral 00:00: mouth 2 [place] powder 00 (two) Medical packet times Branch daily. dicyclomine Yes [id number] 10mg Take 1 [facility] 10 mg 5-27 capsule by ity of capsule 00:00: mouth 3 [place] 00 (three) Medical times Branch daily. proMETHazin Yes [id number] 12.5mg Take 0.5 [facility] e 25 mg [...] (Pain scal 7-10). Indication s: chronic pain psyllium Yes [id number] 1{packe Take 1 [facility] husk 3.4 5-27 t} Packet by ity of gram oral 00:00: mouth 2 [place] powder 00 (two) Medical packet times Branch daily. proMETHazin Yes [id number] 12.5mg Take 0.5 [facility] e 25 mg 5-27 tablets by ity of tablet 00:00: mouth [place] 00 every 6 Medical (six) Branch hours as needed for Nausea and Vomiting (N/V). psyllium 2022- No [id number] 1{packe Take 1 [facility] husk 3.4 5-27 01-12 t} Packet by ity o f gram oral 00:00: 00:00 mouth 2 [place] powder 00 :00 (two) Medical packet times Branch daily. proMETHazin 2022- No [id number] 12.5mg Take 0.5 [facility] e 25 mg 5-27 01-12 tablets by ity o f tablet 00:00: 00:00 mouth [place] 00 :00 every 6 Medical (six) Branch hours as needed for Nausea and Vomiting (N/V). dicyclomine 2022- No [id number] 10mg Take 1 [facility] 10 mg 5-27 -11 capsule by ity of capsule 00:00: 00:00 mouth 3 [place] 00 :00 (three) Medical times Branch daily. HYDROcodone 2022- No [id number] 1{tbl} Take 1 U nivers -acetaminop 5-27 01-11 tablet by it y of hen 7.5-325 00:00: 00:00 mouth 2 [place] mg per 00 :00 (two) Medical tablet times Branch daily as needed (Pain scal 7-10). Indication s: chronic pain dicyclomine 2022- No [id number] 10mg Take 1 [facility] 10 mg 5-27 -11 capsule by ity of capsule 00:00: 00:00 mouth 3 [place] 00 :00 (three) Medical times Branch daily. HYDROcodone 2022- No [id number] 1{tbl} Take 1 U nivers -acetaminop 5-27 -11 tablet by it y of hen 7.5-325 00:00: 00:00 mouth 2 [place] mg per 00 :00 (two) Medical tablet times Branch daily as needed (Pain scal 7-10). Indication s: chronic pain lipase-prot 2021- No [id number] 1{capsu Take 1 [facility] ease-amylas 5-27 10-25 le} capsule by i ty of e 00:00: 00:00 mouth 3 [place] 12,000-38,0 00 :00 (three) Medic al 00 -60,000 times Branch unit daily with capsule meals. ursodioL 2021- No [id number] 500mg Take 1 U nivers 500 mg 5-27 10-25 tablet by ity of tablet 00:00: 00:00 mouth 2 [place] 00 :00 (two) Medical times Branch daily. sucralfate 2021- No [id number] 1g Take 1 [facility] 1 gram 5-27 06-09 tablet by ity of tablet 00:00: 00:00 mouth [place] 00 :00 before Medical meals and Branch at bedtime. pantoprazol 2021- No [id number] 40mg Take 1 [facility] e 40 mg EC 5-27 06- tablet by ity of tablet 00:00: 00:00 mouth [place] 00 :00 daily. Medical Branch sucralfate 2021- No [id number] 1g Take 1 [facility] 1 gram 5-27 - tablet by ity of tablet 00:00: 00:00 mouth [place] 00 :00 before Medical meals and Branch at bedtime. pantoprazol No [id number] 40mg Take 1 [facility] e 40 mg EC 5-27 - tablet by ity of tablet 00:00: 00:00 mouth [place] 00 :00 daily. Medical Branch ursodioL No [id number] 500mg Take 1 U nivers 500 mg 5-27 05-27 tablet by ity of tablet 00:00: 00:00 mouth 2 [place] 00 :00 (two) Medical times Branch daily. psyllium No [id number] 1{packe Take 1 [facility] husk 3.4 5-27 05-27 t} Packet by ity o f gram oral 00:00: 00:00 mouth 2 [place] powder 00 :00 (two) Medical packet times Branch daily. lipase-prot No [id number] 1{capsu Take 1 [facility] ease-amylas 5-27 05-27 le} capsule by i ty of e 00:00: 00:00 mouth 3 [place] 12,000-38,0 00 :00 (three) Medic al 00 -60,000 times Branch unit daily with capsule meals. dicyclomine 2021- No [id number] 10mg Take 1 [facility] 10 mg 5-27 05-27 capsule by ity of capsule 00:00: 00:00 mouth 3 [place] 00 :00 (three) Medical times Branch daily. proMETHazin 2021- No [id number] 12.5mg Take 0.5 [facility] e 25 mg [...] Indication s: chronic pain sucralfate 2021- No [id number] 1g Take 1 [facility] 1 gram 09-08 tablet by ity of tablet 00:00: 00:00 mouth [place] 00 :00 before Medical meals and Branch at bedtime. pantoprazol 2021- No [id number] 40mg Take 1 [facility] e 40 mg [...] Yes 7.5mg 7.5 mg, Un you -acetaminop 5-25 Oral, Q6H, it y of hen (HYCET) [...] Nausea and Vomiting (N/V) gadobenate 2021- No [id number] .2mL/kg 15.7 mL Univers dimeglumine 09-06 (0.2 [...] 09-04 Oral, ity of imeth 22:31: Q6HPRN, [place] (MAALOX 21 Starting Medical PLUS / on Mon Branch MAG-AL 09/04/21 at PLUS) 1731, 200-200-20 Until mg/5 mL Discontinu suspension ed, 30 mL Routine, Indigestio n, Heartburn psyllium Yes 1{packe 1 Packet, U nivers husk 09-04 t} Oral, BID, ity of (METAMUCIL 01:00: First dose [place] (SUGAR 00 on [place] [facility] FREE)) 3.4 09/03/21 at [facility] gram oral 1999, powder Until packet 1 Discontinu Packet ed, Routine HYDROcodone 2021- No 10mg 10 mg, Uni vers -acetaminop 09-04 Oral, BID, i ty of hen (HYCET) 01:00: 22:54 First dose [place] 7.5-325 00 :32 (after Medical mg/15 mL last Branch solution 10 modificati mg on) on [place] 09/03/21 at 2000, Until Discontinu ed traMADoL 2021- No 25mg 25 mg, Univer s (ULTRAM) 09-03 Oral, PRN, ity of tablet 25 19:34: 19:54 1 dose, [place] mg 00 :00 Starting Medical on [facility] 09/03/21 at 1434, Until Discontinu ed, Routine, Pain (scale 7-10) pantoprazol Yes 40mg 40 mg, Univ ers e 09-03 Slow IV ity of (PROTONIX) 17:30: Push, [place] injection 00 Q24H, Medical 40 mg First dose Branch on [place] 09/03/21 at 1230, Until Discontinu ed dicyclomine Yes 10mg 10 mg, Univ ers (BENTYL) 09-03 Oral, ity of capsule 10 16:19: TIDPRN, [place] mg 52 Starting Medical on [facility] 09/03/21 at 1119, Until Discontinu ed, Routine, Abdominal pain acetaminoph Yes 325mg 325 mg, Un you en 09-03 Oral, ity of (TYLENOL) 14:40: Q6HPRNMiguel tablet 325 10 Starting Medic al mg on [facility] 09/03/21 at 0940, Until Discontinu ed, Routine, Pain (scale 1-3), Pain (scale 4-6) FENTanyl PF 2021- No 50ug 50 mcg, Un you (SUBLIMAZE 09-03 Slow IV ity o f (PF)) 14:39: 16:17 Push, [place] injection 39 :20 Q6HPRN, Medical 50 mcg Starting Branch on 09/03/21 at 0939, Until [place] 09/03/21 at 1117, Routine, Pain (scale 7-10) polyethylen Yes 17g 17 g, Unive rs e glycol 09-02 Oral, ity of 3350 powder 14:00: DAILY, [place] 17 g 00 First dose Medical on [facility] Branch 09/02/21 at 0900, Until Discontinu ed, Routine fenofibrate Yes 134mg 134 mg, Un you micronized 09-02 Oral, ity of (LOFIBRA) 14:00: DAILY, [place] capsule 134 00 First dose Me dical mg on [facility] 09/02/21 at 0900, Until Discontinu ed losartan Yes 100mg 100 mg, Unive rs (COZAAR) 09-02 Oral, ity of tablet 100 14:00: DAILY, [place] mg 00 First dose Medical on [facility] Branch 09/02/21 at 0900, Until Discontinu ed, Routine heparin Yes 5000U 5,000 Univers (porcine) 5- Units, ity of injection 13:00: Subcutaneo [place] 5,000 Units 00 us, Q12H, Med ical First dose Branch on [facility] 09/02/21 at 0800, Until Discontinu ed, Routine sennosides Yes 8.6mg 8.6 mg, Uni vers (SENOKOT) 09-02 Oral, BID, ity of tablet 8.6 13:00: First dose [place] mg 00 on [facility] 09/02/21 at Branch 0800, Until Discontinu ed, Routine lipase-prot Yes 1{capsu 1 capsule, Univers ease-amylas 09-02 le} Oral, TID ity of e (CREON) 13:00: MEALS, [place] 12,000-38,0 00 First dose Me dical 00 -60,000 on [facility] Branch unit 09/02/21 at capsule 1 0800, capsule Until Discontinu ed, Routine ursodioL Yes 500mg 500 mg, Unive rs (EUGENE) 09-02 Oral, BID, ity of tablet 500 13:00: First dose [place] mg 00 on [facility] Medical 09/02/21 at Branch 0800, Until Discontinu ed, Routine gabapentin Yes 300mg 300 mg, Uni vers (NEURONTIN) 09-02 Oral, BID, it y of capsule 300 13:00: First dose [place] mg 00 on [facility] Medical 09/02/21 at Branch 0800, Until Discontinu ed, Routine HYDROcodone 2021- No 7.5mg 7.5 mg, U nivers -acetaminop 09-02 Oral, BID, i ty of hen (HYCET) 13:00: 16:17 First dose [place] 7.5-325 00 :46 on [facility] Medical mg/15 mL 09/02/21 at [facility] h solution 0800, 7.5 mg Until Discontinu ed FENTanyl PF No 25ug 25 mcg, Un you (SUBLIMAZE [...] s mg 47 :33 Starting Medical on [facility] Branch 09/02/21 at 0755, Until 09/03/21 at 0717, Routine, Pain (scale 4-6) traZODone Yes 100mg 100 mg, Univ ers (DESYREL) 09-02 Oral, QHS, ity of tablet 100 03:30: First dose [place] mg 00 on Fri Medical 09/01/21 at Branch 2230, Until Discontinu [...] Q6HPRN, Starting on Sat09/01/21 at 2139, Until Sat09/06/21 at 1338, Routine, N/V unresponsi ve to [...] On Sat09/01/21 at 1845, STAT FENTanyl PF No 25ug 25 mcg, Un you (SUBLIMAZE [...] 00 :00 dose, On Medi brandy mg Sat09/01/21 at 1830, [place] busPIRone 2021- No 15mg [...] times Branch tablet daily. For anxiety ondansetron No 4mg 4 mg, Slow Univers (ZOFRAN 5-20 05-20 IV Push, ity of (PF)) 21:00: 20:10 ONCE, 1 [place] injection 4 00 :00 dose, On Medi brandy mg Fri Branch 09/01/21 at 1600, [place] morpHINE (2 No 4mg 4 mg, Slow Univers mg/mL) 5-20 05-20 IV Push, ity of injection 4 21:00: 20:10 ONCE, 1 [place] mg 00 :00 dose, On [facility] 09/01/21 at 1600, STAT dicyclomine No 20mg 20 mg, Uni vers (BENTYL) 5-15 05-15 Oral, ity of tablet 20 20:45: 19:43 ONCE, 1 [place] mg 00 :00 dose, On [facility] Branch 08/27/21 at 1545, Routine maalox:diph No 15mL 15 mL, Uni vers enhydrAMINE 5-15 05-15 Oral, ity of :lidocaine 20:00: 18:58 ONCE, 1 [place] 2 % viscous 00 :00 dose, On Medi brandy 1:1:1 [place] (FIRST-MOUT 08/27/21 at [facility]) 1500, oral Routine suspension 15 mL FENTanyl PF No 50ug 50 mcg, Un you (SUBLIMAZE 5-15 05-15 Slow IV ity o f (PF)) 17:49: 17:52 Push, [place] injection 00 :00 ONCE, 1 Medical 50 mcg dose, On Branch [place] 08/27/21 at 1300, STAT morpHINE (4 No 4mg 4 mg, Slow Univers mg/mL) 5-15 05-15 IV Push, ity of injection 4 17:15: 16:22 ONCE, 1 [place] mg 00 :00 dose, On [facility] 08/27/21 at 1215, STAT ondansetron 2021- No [...] 08/27/21 at 1215, [place] iopamidol 2021- No [id number] 100mL 100 mL, Univers (ISOVUE 08-27 05-15 Intravenou ity o f 370-500 mL) 16:45: 16:44 s, ONCE, 1 [place] injection 00 :00 dose, On Medica l 100 mL [place] Branch 08/27/21 at 1145, Routine traZODone 2021-0 [...] times Medical daily. For Branch anxiety QUEtiapine 2-0 Yes 400mg Take 400 Un you (SEROQUEL) 4-16 mg by ity of 400 mg 14:03: mouth [place] tablet 58 daily. Medical Patient Branch doesn't like to take it divalproex 2-0 Yes 500mg Take 500 Un you ER [...] times Branch tablet daily. For anxiety lactulose 0 Yes 15mL 15 mL, Univer s (CEPHULAC) 4-16 Oral, ity of solution 15 14:00: DAILY, [place] mL 00 First dose Medical (after Branch last reorder) on 07/29/21 at 0900, Until Discontinu ed, Routine proMETHazin 0 Yes [id number] 25mg Take 1 Univers e 25 mg 4-16 tablet by ity of tablet 00:00: mouth [place] 00 every 4 Medical (four) Branch hours as needed for Nausea and Vomiting (N/V). proMETHazin 0 Yes [id number] 25mg Take 1 [facility] e 25 mg 4-16 tablet by ity of tablet 00:00: mouth [place] 00 every 4 Medical (four) Branch hours as needed for Nausea and Vomiting (N/V). proMETHazin 0 Yes [id number] 25mg Take 1 [facility] e 25 mg 4-16 tablet by ity of tablet 00:00: mouth [place] 00 every 4 Medical (four) Branch hours as needed for Nausea and Vomiting (N/V). proMETHazin 2021-0 202- No [id number] 25mg Take 1 Univers e 25 mg 4-16 05-27 tablet by ity of tablet 00:00: 00:00 mouth [place] 00 :00 every 4 Medical (four) Branch hours as needed for Nausea and Vomiting (N/V). docusate 2021-0 202- No [id number] 100mg Take 1 Univers 100 mg 4-16 05-17 capsule by ity of capsule 00:00: 04:59 mouth [place] 00 :00 daily for Medical 30 days. Branch hydrALAZINE 2021- No [id number] 50mg Take 1 Univers 50 mg 4-16 05-17 tablet by ity of tablet 00:00: 04:59 mouth 2 [place] 00 :00 (two) Medical times Branch daily for 30 days. docusate 2021- No [id number] 100mg Take 1 Univers 100 mg 4-16 05-17 capsule by ity of capsule 00:00: 04:59 mouth [place] 00 :00 daily for Medical 30 days. Branch hydrALAZINE 2021- No [id number] 50mg Take 1 Univers 50 mg 4-16 05-17 tablet by ity of tablet 00:00: 04:59 mouth 2 [place] 00 :00 (two) Medical times Branch daily for 30 days. docusate 2021- No [id number] 100mg Take 1 Univers 100 mg 4-16 05-17 capsule by ity of capsule 00:00: 04:59 mouth [place] 00 :00 daily for Medical 30 days. Branch hydrALAZINE 2021- No [id number] 50mg Take 1 Univers 50 mg 4-16 [...] No 30mL 30 mL, Unive rs (CEPHULAC) 4-15 04-15 Oral, ity of solution 30 15:30: 15:07 ONCE, 1 [place] mL 00 :00 dose, On Medical Fri Branch 07/28/21 at 1030, Routine amLODIPine 2021- No 5mg 5 mg, Unive rs (NORVASC) 07-2815 Oral, ity of tablet 5 mg 15:30: [...] at 2000, Until Discontinu ed, Routine morpHINE No 4mg 4 mg, Slow Un you injection 4 07-2715 IV Push, ity of mg 18:29: 15:05 Q3HPRN, [place] 31 :55 Starting Medical on [place] Branch 07/27/21 at 1329, Until Sat07/28/21 at 1005, Routine, Pain (scale 7-10) HYDROcodone Yes 1{tbl} 1 tablet, Univers -acetaminop -14 Oral, ity of hen (NORCO) 18:19: Q6HPRN, [place] 10-325 mg 10 Starting Medica l tablet 1 on [place] Branch tablet 07/27/21 at 1319, Until Discontinu ed, Routine, Pain (scale 7-10) labetaloL 2021- No 10mg 10 mg, Unive rs (NORMODYNE) 07-27- Slow IV ity of injection 03:00: 02:18 Push, [place] 10 mg 00 :00 ONCE, 1 Medical dose, On Branch Sat07/26/21 at 2200, Routine magnesium 2021-2021- No 2g 2 g, IV Univ ers sulfate in 07-27 Piggyback, it y of water 2 01:00: 01:53 Administer [place] gram/50 mL 00 :00 over 60 Medica l (4 %) Minutes, Branch infusion 2 ONCE, 1 g dose, On Sat07/26/21 at 2000, Routine hydrALAZINE 2021-2021- No 25mg 25 mg, Uni vers (APRESOLINE 07-27 Oral, BID, i ty of ) tablet 25 01:00: 18:32 First dose [place] mg 00 :11 on Sat [facility] 07/26/21 at Branch 2000, Until Discontinu ed, Routine hydralAZINE Yes 20mg 20 mg, Univ ers (APRESOLINE 07-26 Slow IV ity o f ) injection 21:30: Push, [place] 20 mg 36 Q4HPRN, Medical Starting Branch on Sat07/26/21 at 1630, Until Discontinu ed, STAT, DBP=>100; SBP=>180<b r>Indicati on: Hypertensi ve Emergency D5W-LR IV 0 Yes 1000mL at 150 Univ ers infusion 4-13 mL/hr, IV ity of 1,000 mL 16:15: Infusion, [place] 00 CONTINUOUS Medical , Starting Branch on Sat07/26/21 at 1115, Until Discontinu ed, Routine QUEtiapine 0 Yes 400mg 400 mg, Uni vers (SEROQUEL) 4-13 Oral, QHS, ity of tablet 400 02:00: First dose [place] mg 00 on [facility] 07/25/21 at Branch 2100, Until Discontinu ed, Routine divalproex 0 Yes 500mg 500 mg, Uni vers (DEPAKOTE) 4-13 Oral, ity of EC tablet 01:00: Q12H, [place] 500 mg 00 First dose Medical on [facility] 07/25/21 at 2000, Until Discontinu ed LORazepam 2021-0 2021- No .5mg 0.5 mg, Univ ers (ATIVAN) 07-26 Slow IV ity of injection 00:45: 00:07 Push, [place] 0.5 mg 00 :00 ONCE, 1 Medical dose, On Branch [facility] 07/25/21 at 1945, Routine LORazepam Yes .5mg 0.5 mg, Unive rs (ATIVAN) 07-25 Slow IV ity of injection 23:49: Push, [place] 0.5 mg 46 TIDPRN, Medical Starting Branch on Sat07/25/21 at 1849, Until Discontinu ed, Routine, Anxiety hydralAZINE No 10mg 10 mg, Uni vers [...] 31 :31 Starting Medi brandy mg on [facility] Branch 07/25/21 at 1259, Until [place] 07/27/21 at 1258, Routine, Pain (scale 7-10)
U se approved by (Faculty): ADC PROVIDER docusate Yes 100mg 100 mg[facility] 07-25 Oral, BID, ity o f capsule 100 16:30: First dose [place] mg 00 on [facility] 07/25/21 at Branch 1130, Until Discontinu ed, Routine sennosides- 2021- No 1{tbl} 1 tablet, [facility] docusa 07-2515 Oral, ity of sodium 16:30: 21:16 DAILY, [place] (SENOKOT-S) 00 :00 First dose Me dical 8.6-50 mg on [facility] per tablet 07/25/21 at 1 tablet 1130, [...] First dose [place] mg 00 on [facility] Medical 07/24/21 at Branch 2100, Until Discontinu ed, Routine morpHINE 0 2021- No 4mg 4 mg, Slow Un you injection 07-25 04-12 IV Push, ity of mg 02:00: 17:59 Q3HPRN, [place] 00 :47 Starting Medical on [facility] 07/24/21 at 2100, Until Sat07/25/21 at 1259, Routine, Pain (scale 7-10) proMETHazin Yes 12.5mg 12.5 mg, Univers e 07-24 IV ity of (PHENERGAN) 23:52: Piggyback, [place] 12.5 mg in 45 Q4HPRN, Medica l NaCl 0.9% Starting Branch (NS) 50 mL on [facility] IV 07/24/21 at piggyback 1852, Until Discontinu ed, Routine, Nausea and Vomiting (N/V) morpHINE 2021- No 4mg 4 mg, Slow Un you injection 4 07-24 04-11 IV Push, ity of mg 19:45: 23:44 Q3HPRN, [place] 00 :00 Starting Medical on [facility] 07/24/21 at 1445, Until Sat07/24/21 at 1844, Routine, Pain (scale 7-10) SERTraline 0 Yes 25mg 25 mg, Unive rs (ZOLOFT) 411 Oral, ity of tablet 25 14:00: DAILY, [place] mg 00 First dose Medical on [facility] 07/24/21 at 0900, Until Discontinu ed, Routine losartan 2021-0 Yes 100mg 100 mg, Unive rs (COZAAR) 11 Oral, ity of tablet 100 14:00: DAILY, [place] mg 00 First dose Medical on [facility] 07/24/21 at 0900, Until Discontinu ed, Routine [...] First dose [place] mg 00 on Sat [facility] 07/24/21 at Branch 0800, Until Discontinu ed, Routine gabapentin Yes 300mg 300 mg, Uni vers (NEURONTIN) 07-24 Oral, BID, it y of capsule 300 13:00: First dose [place] mg 00 on Sat [facility] 07/24/21 at Branch 0800, Until Discontinu ed, Routine lactated 2021- No 1000mL at 150 [facility] ers ringers IV 07-24 04-13 mL/hr, ity [...] 4 35 Starting Medi brandy mg on [facility] 07/23/21 at 2326, Until Discontinu ed, [place], Nausea and Vomiting (N/V) FENTanyl PF 2021- No 75ug 75 mcg, Un you (SUBLIMAZE 07-24 Slow IV ity o f (PF)) 00:15: 23:11 Push, [place] injection 00 :00 ONCE, 1 Medical 75 mcg dose, On Branch [place] 07/23/21 at 1915, STAT iopamidol 2021- No [id number] 100mL 100 mL, Univers (ISOVUE 07-24 Intravenou ity o f 370-500 mL) 00:00: 00:00 s, ONCE, 1 [place] injection 00 :00 dose, On Medica l 100 mL [facility] 07/23/21 at 1900, Routine morpHINE 2021- No 4mg 4 mg, Slow Un you injection 4 07-23 IV Push, ity of mg 23:57: 19:32 Q4HPRN, [place] 08 :42 Starting Medical on [facility] 07/23/21 at 1857, Until 07/24/21 at 1432, Routine, Pain (scale 7-10) HYDROcodone 2021- No 1{tbl} 1 tablet, Univers -acetaminop 07-23 Oral, ity of hen (NORCO 23:57: 23:56 Q6HPRN, [place] as 5) 5-325 mg 06 :06 Starting Medi brandy tablet 1 on [facility] tablet 07/23/21 at 1857, Until 07/25/21 at 1856, Routine, Pain (scale 4-6) acetaminoph Yes 650mg 650 mg, Un you en 07-23 Oral, ity of (TYLENOL) 23:57: Q6HPRN, [place] tablet 650 04 Starting Medic al mg on [facility] 07/23/21 at 1857, Until Discontinu ed, Routine, Pain (scale 1-3) haloperidol 2021- No 2.5mg 2.5 mg, U nivers lactate 07-23 Intravenou ity o f (HALDOL) 23:30: 22:31 s, ONCE, 1 [place] injection 00 :00 dose, On Medica l 2.5 mg [facility] 07/23/21 at 1830, STAT ondansetron 2021- No 4mg 4 mg, Slow Univers (ZOFRAN 07-23-10 IV Push, ity of (PF)) 22:00: 21:22 ONCE, 1 [place] injection 4 00 :00 dose, On Medi brandy mg [facility] [place] 07/23/21 at 1700, [place] FENTanyl PF 2021- No 75ug 75 mcg, Un you (SUBLIMAZE 07-23-10 Slow IV ity o f (PF)) 22:00: 21:24 Push, [place] injection 00 :00 ONCE, 1 Medical 75 mcg dose, On Branch [place] 07/23/21 at 1700, Routine NaCl 0.9% 2021- No 1000mL at 999 Uni vers (NS) bolus 07-23-10 mL/hr, ity of infusion 22:00: 23:41 1,000 mL, [place] 1,000 mL 00 :00 IV Medical Infusion, Branch ONCE, 1 dose, On [place] 07/23/21 at 1700, [place] water for Yes [...] Starting ity of irrigation 16:35: 20:27 on [place] solution 00 :50 07/04/21 at Medic al 1135, Branch Until e 07/04/21 at 1527, Routine, Intra-op simethicone 2021- No PRN, Unive rs (GAS RELIEF 07-04 Starting ity of (SIMETHICON 16:35: 20:27 on Tue [place] as E)) 40 00 :50 07/04/21 at Medical mg/0.6 mL 1135, Branch drops Until 07/04/21 at 1527, Routine, Intra-op lactated 2021-0 2022- No 1000mL at 42 Unive rs ringers IV 3-22 03-22 mL/hr, ity of infusion 16:15: 16:04 1,000 mL, [place] 1,000 mL 00 :00 IV Medical Infusion, Branch ONCE, 1 dose, On Sat07/04/21 at 1115, Routine, DSU Pre-op lactated 2021-0 2022- No 1000mL at 42 Unive rs ringers IV 3-22 03-22 mL/hr, ity of infusion 16:15: 16:04 1,000 mL, [place] 1,000 mL 00 :00 IV Medical Infusion, Branch ONCE, 1 dose, On Sat07/04/21 at 1115, Routine, DSU Pre-op traZODone 2021-0 Yes 100mg Take 100 Uni vers 100 mg 3-22 mg by ity of tablet 13:27: mouth at [place] [address] bedtime. Medical Branch losartan 202-0 Yes 100mg [...] Sat Branch 06/03/21 at 2230, [place] labetaloL No 20mg 20 mg, Unive rs (NORMODYNE) [...] No 15mL 15 mL, Uni vers enhydrAMINE 06-04- Oral, ity of :lidocaine 02:00: 01:01 ONCE, 1 [place] 2 % viscous 00 :00 dose, On Medi brandy 1:1:1 Sat Branch ([facility] 06/03/21 at [facility]) 1999, [place] oral suspension 15 mL iopamidol 2021- No [id number] 100mL 100 mL, Univers (ISOVUE 06-04- Intravenou [...] Branch 06/03/21 at 1530, Routine proMETHazin Yes [id number] 25mg Insert 1 Univers e 25 mg 2-19 Suppositor ity of suppository 00:00: [place] 00 rectum Medical every 4 Branch (four) hours as needed for Nausea and Vomiting (N/V), N/V unresponsi ve to Ondansetro n or N/V unresponsi ve to oral antiemetic s. proMETHazin Yes [id number] 25mg Insert 1 Univers e 25 mg 2-19 Suppositor ity of suppository 00:00: y into [place] 00 rectum Medical every 4 Branch (four) hours as needed for Nausea and Vomiting (N/V), N/V unresponsi ve to Ondansetro n or N/V unresponsi ve to oral antiemetic s. proMETHazin Yes [id number] 25mg Insert 1 Univers e 25 mg 2-19 Suppositor ity of suppository 00:00: y into [place] 00 rectum Medical every 4 Branch (four) hours as needed for Nausea and Vomiting (N/V), N/V unresponsi ve to Ondansetro n or N/V unresponsi ve to oral antiemetic s. proMETHazin Yes [id number] 25mg Insert 1 Univers e 25 mg 2-19 Suppositor ity of suppository 00:00: y [place] rectum Medical every 4 Branch (four) hours as needed for Nausea and Vomiting (N/V), N/V unresponsi ve to Ondansetro n or N/V unresponsi ve to oral antiemetic s. proMETHazin Yes [id number] 25mg Insert 1 Univers e 25 mg 2-19 Suppositor ity of suppository 00:00: y [place] rectum Medical every 4 Branch (four) hours as needed for Nausea and Vomiting (N/V), N/V unresponsi ve to Ondansetro n or N/V unresponsi ve to oral antiemetic s. proMETHazin Yes [id number] 25mg Insert 1 Univers e 25 mg 2-19 Suppositor ity of suppository 00:00: y into s rectum Medical every 4 Branch (four) hours as needed for Nausea and Vomiting (N/V), N/V unresponsi ve to Ondansetro n or N/V unresponsi ve to oral antiemetic s. proMETHazin Yes [id number] 25mg Insert 1 Univers e 25 mg 2-19 Suppositor ity of suppository 00:00: y into [place] rectum Medical every 4 Branch (four) hours as needed for Nausea and Vomiting (N/V), N/V unresponsi ve to Ondansetro n or N/V unresponsi ve to oral antiemetic s. proMETHazin 2021- No [id number] 25mg Insert 1 Univers e 25 mg 2-19 05-27 Suppositor ity o f suppository 00:00: 00:00 y into [place] 00 :00 rectum Medical every 4 Branch (four) hours as needed for Nausea and Vomiting (N/V), N/V unresponsi ve to Ondansetro n or N/V unresponsi ve to oral antiemetic s. morpHINE 2021- No 4mg 4 mg, Slow Un you injection 4 2-07 02-07 IV Push, ity of mg 07:30: 06:35 ONCE, 1 [place] 00 :00 dose, On Medical 05/22/21 Branch at 0130, STAT ondansetron 2021- No 4mg 4 mg, Slow Univers (ZOFRAN 05-22 IV Push, ity of (PF)) 07:30: 06:35 ONCE, 1 [place] injection 4 00 :00 dose, On Medi brandy mg 05/22/21 Branch at 0130, [place] iohexol 2021- No [id number] 100mL 100 mL, Univers (OMNIPAQUE 05-22 Intravenou it y of 350 06:15: 06:04 s, ONCE, 1 [place] BULK-100 00 :00 dose, On Medical mL) [facility] 05/22/21 Branch injection at 0015, 100 mL Routine traZODone Yes 100mg Take 100 Uni vers 100 mg 2-06 mg by ity of tablet 23:27: mouth at [place] [address] bedtime. Medical Branch traZODone Yes 100mg Take 100 Uni vers 100 mg 2-06 mg by ity of tablet 23:27: mouth at [place] [address] bedtime. Medical Branch gabapentin Yes 300mg Take 300 Un you 300 mg 2-06 mg by ity of capsule 23:27: mouth 2 [place] [address] (two) Medical times Branch daily. gabapentin Yes 300mg Take 300 Un you 300 mg 2-06 mg by ity of capsule 23:27: mouth 2 [place] 26 (two) Medical times Branch daily. erythromyci [...] mg by ity of tablet 09:16: mouth [place] 01 daily. Medical Branch gabapentin 2021-0 Yes [...] mouth [place] 01 daily. Medical Branch losartan 2022-0 Yes 100mg Take 100 Univ ers 100 mg 2-03 mg by ity of tablet 09:16: mouth [place] 01 daily. Medical Branch montelukast 2021- No [id number] 10mg Take 1 Univers (SINGULAIR) 2-06 tablet by it y of 10 mg 00:00: 05:59 mouth [place] tablet 00 :00 daily for Medical 30 days. Branch montelukast 2021- No [id number] 10mg Take 1 Univers (SINGULAIR) 2-06 tablet by it y of 10 mg 00:00: 05:59 mouth [place] tablet 00 :00 daily for Medical 30 days. Branch montelukast 2021- No [id number] 10mg Take 1 Univers (SINGULAIR) 2-06 tablet by it y of 10 mg 00:00: 05:59 mouth [place] tablet 00 :00 daily for Medical 30 days. Branch benzonatate 2021- No [id number] 200mg Take 2 Univers (TESSALON 2-06 14-14 capsules ity o f PERLES) 100 00:00: 05:59 by mouth [place] mg capsule 00 :00 every 8 Medica l (eight) Branch hours for 10 days. benzonatate 2021- No [id number] 200mg Take 2 Univers (TESSALON 2-06 14-14 capsules ity o f PERLES) 100 00:00: 05:59 by mouth [place] mg capsule 00 :00 every 8 Medica l (eight) Branch hours for 10 days. benzonatate 2021- No [id number] 200mg Take 2 Univers (TESSALON 2-06 14-14 capsules ity o f PERLES) 100 00:00: 05:59 by mouth [place] mg capsule 00 :00 every 8 Medica l (eight) Branch hours for 10 days. benzonatate 2021- No [id number] 200mg Take 2 Univers (TESSALON 2- 02-06 capsules ity o f PERLES) 100 00:00: 00:00 by mouth [place] mg capsule 00 :00 every 8 Medica l (eight) Branch hours for 10 days. montelukast 2021- No [id number] 10mg Take 1 Univers (SINGULAIR) 2-03 -06 tablet by it y of 10 mg 00:00: 00:00 mouth [place] tablet 00 :00 daily for Medical 30 days. Branch traZODone Yes 100mg Take 100 Uni vers 100 mg 1-03 mg by ity of tablet 10:57: mouth at [place] [address] bedtime. Medical Branch losartan Yes 100mg Take 100 Univ ers 100 mg 1-03 mg by ity of tablet 10:57: mouth [place] [address] daily. Medical Branch gabapentin Yes 300mg Take [...] 5 ity of (0.5 %) 10:57: mg/gram [place] ophthalmic 34 (0.5 %) Medica l ointment eye Branch ointment traZODone Yes 100mg Take 100 Uni vers 100 mg 1-03 mg by ity of tablet 10:57: mouth at [place] [address] bedtime. Medical Branch traZODone Yes 100mg Take 100 Uni vers 100 mg 1-03 mg by ity of tablet 10:57: mouth at [place] [address] bedtime. Medical Branch traZODone Yes 100mg Take 100 Uni vers 100 mg 1-03 mg by ity of tablet 10:57: mouth at [place] [address] bedtime. Medical Branch maalox:diph No 15mL 15 mL, Uni vers enhydrAMINE 04-15 Oral, ity of :lidocaine 20:45: 20:38 ONCE, 1 [place] 2 % viscous 00 :00 dose, On Medi brandy 1:1:1 04/15/21 Branch ([facility] at 1445, [facility]) Routine oral suspension 15 mL famotidine 2021- [...] On 04/15/21 at 1445, [place] iopamidol No [id number] 120mL 120 mL, Univers (ISOVUE 04-15 Intravenou ity o f 370-500 mL) 20:13: 20:14 s, ONCE, 1 [place] injection 00 :00 dose, On Medica l 120 mL 04/15/21 Branch at 1430, Routine famotidine No [id number] 40mg Take 2 Univers (PEPCID) 20 04-15 tablets by i ty of mg tablet 00:00: 05:59 mouth 2 [place] 00 :00 (two) Medical times Branch daily for 15 days. proMETHazin 2021- No [id number] 25mg Take 1 Univers e 25 mg [...] No 10mg 10 mg, Uni vers (APRESOLINE 05-2712 Slow IV ity of ) injection 03:30: 02:51 [place] 10 mg 00 :00 ONCE, 1 Medical dose, On Branch 03/25/21 at 2130, [place]
In dication: Hypertensi ve Emergency dicyclomine 2020-04 Yes [id number] 20mg 20 mg, Univers (BENTYL) 05-27 Intramuscu ity o f injection 02:00: lar, QID, [place] as 20 mg 00 First dose Medical on Sat Branch 03/25/21 at 2000, Until Discontinu ed, Routine iopamidol 2020-04- No [id number] 120mL 120 mL, Univers (ISOVUE 05-27 Intravenou ity o f 370-500 mL) 01:58: 01:58 s, ONCE, 1 [place] injection 00 :00 dose, On Medica l 120 mL Sat Branch 03/25/21 at 2015, Routine NaCl 0.9% 2020-04- No [id number] 1000mL at 999 Univers (NS) bolus 05-27 mL/hr, ity of infusion 01:30: 03:00 1,000 mL, [place] as 1,000 mL 00 :00 IV Medical Infusion, Branch ONCE, 1 dose, On 03/25/21 at 1930, [place] ondansetron 2020-04- No [id number] 4mg 4 mg, Slow Univers (ZOFRAN 05-27 IV Push, ity of (PF)) 01:30: 01:48 ONCE, 1 [place] injection 4 00 :00 dose, On Medi brandy mg Sat Branch 03/25/21 at 1930, [place] famotidine 2020-04- No [id number] 20mg 20 mg, Univers (PEPCID 05-27 Slow IV ity of (PF)) 01:30: 01:48 Push, [place] injection 00 :00 ONCE, 1 Medical 20 mg dose, On Branch 03/25/21 at 1930, [place] ketorolac 2020-04- No [id number] 30mg 30 mg, U nivers (TORADOL) 05-27 Slow IV ity of injection 01:30: 01:49 Push, [place] 30 mg 00 :00 ONCE, 1 Medical dose, On Branch 03/25/21 at 1930, [place] FENTanyl PF 2020-04- No [id number] 75ug 75 mcg, Univers (SUBLIMAZE 05-27 Slow [...] Branch 03/20/21 at 2000, [place] FENTanyl PF 2020-04 No 25ug 25 mcg, Un you (SUBLIMAZE 05-22 Slow IV ity o f (PF)) 02:00: 01:13 Push, [place] injection 00 :00 ONCE, 1 Medical 25 mcg dose, On Branch [facility] 03/20/21 at 2000, STAT diphenhydrA 2020-04 No 12.5mg 12.5 mg, Univers MINE 05-22 Slow IV ity of (BENADRYL) 02:00: 01:13 Push, [place] injection 00 :00 ONCE, 1 Medical 12.5 mg dose, On Branch [facility] 03/20/21 at 2000, STAT metoclopram 2020-04 No 10mg 10 mg, Uni vers selena HCl 05-22 Slow IV ity of (REGLAN) 02:00: 01:13 Push, [place] injection 00 :00 ONCE, 1 Medical 10 mg dose, On Branch [facility] 03/20/21 at 2000, [place] FENTanyl PF 2020-04 No 75ug 75 mcg, Un you (SUBLIMAZE 05-21 Slow IV ity o f (PF)) 23:30: 22:45 Push, [place] injection 00 :00 ONCE, 1 Medical 75 mcg dose, On Branch [facility] 03/20/21 at 1730, Routine ketorolac 2020-04- No 30mg 30 mg, Unive rs (TORADOL) 05-21 Slow IV ity of injection 23:30: 22:44 Push, [place] 30 mg 00 :00 ONCE, 1 Medical dose, On Branch [facility] 03/20/21 at 1730, Routine
physics faculty member approving Restricted medication : MEKA HAMMONDS ondansetron 2020-04- No 4mg 4 mg, Slow Univers (ZOFRAN 05-21 IV Push, ity of (PF)) 23:30: 22:44 ONCE, 1 [place] injection 4 00 :00 dose, On Medi brandy mg Mon Branch 03/20/21 at 1730, [place] dicyclomine 2020-04- No 20mg 20 mg, Uni vers (BENTYL) 05-21 Intramuscu ity of injection 23:30: 23:15 lar, ONCE, [place] 20 mg 00 :00 1 dose, On Medical Mon Branch 03/20/21 at 1730, Routine iopamidol 2020-04- No 100mL 100 mL, Uni vers (ISOVUE 05-21 Intravenou ity o f 370-500 mL) 22:50: 23:15 s, ONCE, 1 [place] injection 00 :00 dose, On Medica l 100 mL [facility] Branch 03/20/21 at 1715, Routine ondansetron 2020-04- No ondansetro Univers 4 mg tablet 05-21 n HCl 4 mg i ty of 18:55: 00:00 tablet [place] 24 :00 Medical Branch metoclopram 2020-04 Yes [id number] 10mg Take 1 Univers selena HCl 10 2-06 tablet by ity of mg tablet 00:00: mouth [place] 00 every 6 Medical (six) Branch hours as needed for Nausea and Vomiting (N/V). dicyclomine 2020-04 Yes [id number] 20mg Take 1 Univers 20 mg 2-06 tablet by ity of tablet 00:00: mouth 4 [place] 00 (four) Medical times Branch daily. metoclopram 2020-04 Yes [id number] 10mg Take 1 Univers selena HCl 10 2-06 tablet by ity of mg tablet 00:00: mouth [place] 00 every 6 Medical (six) Branch hours as needed for Nausea and Vomiting (N/V). dicyclomine 2020-04 Yes [id number] 20mg Take 1 Univers 20 mg 2-06 tablet by ity of tablet 00:00: mouth 4 [place] 00 (four) Medical times Branch daily. metoclopram 2020-04 Yes [id number] 10mg Take 1 Univers selena HCl 10 2-06 tablet by ity of mg tablet 00:00: mouth [place] 00 every 6 Medical (six) Branch hours as needed for Nausea and Vomiting (N/V). dicyclomine 2020-04 Yes [id number] 20mg Take 1 Univers 20 mg 2-06 tablet by ity of tablet 00:00: mouth 4 [place] 00 (four) Medical times Branch daily. metoclopram 2020-04 Yes [id number] 10mg Take 1 Univers selena HCl 10 2-06 tablet by ity of mg tablet 00:00: mouth [place] 00 every 6 Medical (six) Branch hours as needed for Nausea and Vomiting (N/V). dicyclomine 2020-04 Yes [id number] 20mg Take 1 Univers 20 mg 2-06 tablet by ity of tablet 00:00: mouth 4 [place] 00 (four) Medical times Branch daily. metoclopram 2020-04 Yes [id number] 10mg Take 1 Univers selena HCl 10 2-06 tablet by ity of mg tablet 00:00: mouth [place] 00 every 6 Medical (six) Branch hours as needed for Nausea and Vomiting (N/V). dicyclomine 2020-04 Yes [id number] 20mg Take 1 Univers 20 mg 2-06 tablet by ity of tablet 00:00: mouth 4 [place] 00 (four) Medical times Branch daily. metoclopram 2020-04 Yes [id number] 10mg Take 1 Univers selena HCl 10 2-06 tablet by ity of mg tablet 00:00: mouth [place] 00 every 6 Medical (six) Branch hours as needed for Nausea and Vomiting (N/V). dicyclomine 2020-04 Yes [id number] 20mg Take 1 Univers 20 mg 2-06 tablet by ity of tablet 00:00: mouth 4 [place] 00 (four) Medical times Branch daily. metoclopram 2020-04 Yes [id number] 10mg Take 1 Univers selena HCl 10 2-06 tablet by ity of mg tablet 00:00: mouth [place] 00 every 6 Medical (six) Branch hours as needed for Nausea and Vomiting (N/V). dicyclomine 2020-04 Yes [id number] 20mg Take 1 Univers 20 mg 2-06 tablet by ity of tablet 00:00: mouth 4 [place] 00 (four) Medical times Branch daily. metoclopram 2020-04 Yes [id number] 10mg Take 1 Univers selena HCl 10 2-06 tablet by ity of mg tablet 00:00: mouth [place] 00 every 6 Medical (six) Branch hours as needed for Nausea and Vomiting (N/V). dicyclomine 2020-04 Yes [id number] 20mg Take 1 Univers 20 mg 2-06 tablet by ity of tablet 00:00: mouth 4 [place] 00 (four) Medical times Branch daily. metoclopram 2020-04 Yes [id number] 10mg Take 1 Univers selena HCl 10 2-06 tablet by ity of mg tablet 00:00: mouth [place] 00 every 6 Medical (six) Branch hours as needed for Nausea and Vomiting (N/V). dicyclomine 2020-04 Yes [id number] 20mg Take 1 Univers 20 mg 2-06 tablet by ity of tablet 00:00: mouth 4 [place] 00 (four) Medical times Branch daily. metoclopram 2020-04- No [id number] 10mg Take 1 Univers selena HCl 10 2-06 02-06 tablet by ity of mg tablet 00:00: 00:00 mouth [place] 00 :00 every 6 Medical (six) Branch hours as needed for Nausea and Vomiting (N/V). dicyclomine 2020-04- No [id number] 20mg Take 1 Univers 20 mg 2-06 02-06 tablet by ity of tablet 00:00: 00:00 mouth 4 [place] 00 :00 (four) Medical times Branch daily. famotidine 2020-04- No [id number] 20mg Take 1 Univers 20 mg 2-06 12-17 tablet by ity of tablet 00:00: 05:59 mouth at [place] 00 :00 bedtime Medical for 10 Branch days. famotidine 2020-04- No [id number] 20mg Take 1 Univers 20 mg 2-06 12-17 tablet by ity of tablet 00:00: 05:59 mouth at [place] 00 :00 bedtime Medical for 10 Branch days. famotidine 2020-04- No [id number] 20mg Take 1 Univers 20 mg 2-06 12-17 tablet by ity of tablet 00:00: 05:59 mouth at [place] 00 :00 bedtime Medical for 10 Branch days. ketorolac 2020-04- No 30mg 30 mg, Unive rs (TORADOL) 04-15 Slow IV ity of injection 02:15: 01:11 Push, [place] 30 mg 00 :00 ONCE, 1 Medical dose, On [facility] 02/12/21 at 2115, Routine
physics faculty member approving Restricted medication : GABRIELE GRAYSON proMETHazin 2020-04- No 25mg 25 mg, IV Univers e 04-15 Piggyback, ity of (PHENERGAN) 02:15: 01:12 ONCE, 1 [place] 25 mg in 00 :00 dose, On Medical NaCl 0.9% [place] Branch (NS) 50 mL 02/12/21 piggyback at 2115, 50 mL iopamidol 2020-04- No [id number] 120mL 120 mL, Univers (ISOVUE 002-12 Intravenou ity o f 370-500 mL) 23:30: 22:13 s, ONCE, 1 [place] injection 00 :00 dose, On Medica l 120 mL [facility] 02/12/21 at 1830, Routine morpHINE 2020-04- No 4mg 4 mg, Slow Un you injection 4 002-12 IV Push, ity of mg 23:15: 22:23 ONCE, 1 [place] 00 :00 dose, On [facility] 02/12/21 at 1815, STAT famotidine 2020-04- No 20mg 20 mg, Univ ers (PEPCID 0-02-12 Slow IV ity of (PF)) 21:30: 20:28 Push, [place] injection 00 :00 ONCE, 1 Medical 20 mg dose, On [facility] 02/12/21 at 1630, [place] NaCl 0.9% 2020-04- No 1000mL at 999 Uni vers (NS) bolus 0- 10-31 mL/hr, ity of infusion 21:30: 21:30 1,000 mL, [place] as 1,000 mL 00 :00 IV Medical Infusion, Branch ONCE, 1 dose, On [place] 02/12/21 at 1630, [place] ondansetron 2020-04- No 8mg 8 mg, Slow Univers (ZOFRAN 0- IV Push, ity of (PF)) 21:30: 20:23 ONCE, 1 [place] injection 8 00 :00 dose, On Medi brandy mg [place] [facility] 02/12/21 at 1630, [place] ketorolac 2020-04 No 30mg 30 mg, Unive rs (TORADOL) 0-31 10- Slow IV ity of injection 21:30: 20:23 Push, [place] 30 mg 00 :00 ONCE, 1 Medical dose, On Branch [place] 02/12/21 at 1630, [place]
Fa culty member approving Restricted medication : ELIZABETHROSALINDA HOWE morpHINE 2020-04 No 4mg 4 mg, Slow Un you injection 4 002-12 IV Push, ity of mg 21:30: 20:23 ONCE, 1 [place] 00 :00 dose, On [facility] Branch 02/12/21 at 1630, STAT ondansetron 2020-04 Yes [id number] 8mg Take 1 Univers 8 mg tablet 0-31 tablet by ity of 00:00: mouth [place] 00 every 8 Medical (eight) Branch hours as needed for Nausea and Vomiting (N/V). ondansetron 2020-04 No [id number] 8mg Take 1 Univers 8 mg tablet 0-31 12-06 tablet by it y of 00:00: 00:00 mouth [place] 00 :00 every 8 Medical (eight) Branch hours as needed for Nausea and Vomiting (N/V). morpHINE 2020-04 No 4mg 4 mg, Slow Un you injection 4 0-09 22- IV Push, ity of mg 07:00: 05:56 ONCE, 1 [place] 00 :00 dose, On Medical [facility] Branch 01/18/21 at 0200, STAT famotidine 2020-04 [...] brandy 1:1:1 Wed Branch ([facility] 01/18/21 at [facility]) 0100, oral Routine suspension 15 mL dicyclomine 2020-04 No 20mg 20 mg, Uni vers (BENTYL) 0-06 10- Oral, ity of tablet 20 06:00: 05:08 ONCE, 1 [place] mg 00 :00 dose, On Medical [facility] Branch 01/18/21 at 0100, Routine iopamidol 2020-04 No [id number] 120mL 120 mL, Univers (ISOVUE 0-06 01-18 Intravenou ity o f 370-500 mL) 04:45: 03:33 s, ONCE, 1 [place] injection 00 :00 dose, On Medica l 120 mL [facility] Branch 01/17/21 at 2345, Routine morpHINE 2020-04 No 4mg 4 mg, Slow Un you injection 4 006 IV Push, ity of mg 03:45: 02:58 ONCE, 1 [place] 00 :00 dose, On [facility] Branch 01/17/21 at 2245, STAT ondansetron 2020-04 No 4mg 4 mg, Slow Univers (ZOFRAN 0-01-18 IV Push, ity of (PF)) 03:45: 02:59 ONCE, 1 [place] injection 4 00 :00 dose, On Medi brandy mg [facility] 01/17/21 at 2245, [place] NaCl 0.9% 2020-04- No 1000mL at 999 Uni vers (NS) bolus 0-06 10-06 mL/hr, ity of infusion 03:45: 06:13 1,000 mL, [place] 1,000 mL 00 :00 IV Medical Piggyback, Branch ONCE, 1 dose, On [facility] 01/17/21 at 2245, STAT diazePAM 2 Yes 2mg Take 2 mg Un you mg tablet -25 by mouth. ity o f 11:25: [place] 57 Medical Branch erythromyci Yes erythromyc Univers n 5 mg/gram 9-25 in 5 ity of (0.5 %) 11:25: mg/gram [place] ophthalmic 57 (0.5 %) Medica l ointment eye Branch ointment ondansetron Yes ondansetro Univers 4 mg tablet 9-25 n HCl 4 mg it y of 11:25: tablet [place] [address] Medical Branch diazePAM 2 Yes 2mg Take 2 mg Un you mg tablet 9-25 by mouth. ity o f 11:25: [place] [address] Medical Branch erythromyci Yes erythromyc Univers n 5 mg/gram 9-25 in 5 ity of (0.5 %) 11:25: mg/gram [place] ophthalmic 57 (0.5 %) Medica l ointment eye Branch ointment ondansetron Yes ondansetro Univers 4 mg tablet 9-25 n HCl 4 mg it y of 11:25: tablet [place] [address] Medical Branch diazePAM 2 Yes 2mg Take 2 mg Un you mg tablet 9-25 by mouth. ity o f 11:25: [place] [address] Medical Branch erythromyci Yes erythromyc Univers n 5 mg/gram 9-25 in 5 ity of (0.5 %) 11:25: mg/gram [place] ophthalmic 57 (0.5 %) Medica l ointment eye Branch ointment ondansetron Yes ondansetro Univers 4 mg tablet 9-25 n HCl 4 mg it y of 11:25: tablet [place] [address] Medical Branch diazePAM 2 Yes 2mg Take 2 mg Un you mg tablet 9-25 by mouth. ity o f 11:25: [place] [address] Medical Branch erythromyci Yes erythromyc Univers n 5 mg/gram 9-25 in 5 ity of (0.5 %) 11:25: mg/gram [place] ophthalmic 57 (0.5 %) Medica l ointment eye Branch ointment ondansetron Yes ondansetro Univers 4 mg tablet 9-25 n HCl 4 mg it y of 11:25: tablet [place] [address] Medical Branch diazePAM 2 Yes 2mg Take 2 mg Un you mg tablet 9-25 by mouth. ity o f 11:25: [place] [address] Medical Branch erythromyci Yes erythromyc Univers n 5 mg/gram 9-25 in 5 ity of (0.5 %) 11:25: mg/gram [place] ophthalmic 57 (0.5 %) Medica l ointment eye Branch ointment ondansetron Yes ondansetro Univers 4 mg tablet 9-25 n HCl 4 mg it y of 11:25: tablet [place] [address] Medical Branch diazePAM 2 Yes 2mg Take 2 mg Un you mg tablet 9-25 by mouth. ity o f 11:25: [address] Branch erythromyci Yes erythromyc Univers n 5 mg/gram 9-25 in 5 ity of (0.5 %) 11:25: mg/gram [place] ophthalmic 57 (0.5 %) Medica l ointment eye Branch ointment ondansetron Yes ondansetro Univers 4 mg tablet 9-25 n HCl 4 mg it y of 11:25: tablet [place] [address] Medical Branch diazePAM 2 Yes 2mg Take 2 mg Un you mg tablet 9-25 by mouth. ity o f 11:25: [address] erythroci Yes erythromyc Univers n 5 mg/gram 9-25 in 5 ity of (0.5 %) 11:25: mg/gram [place] ophthalmic 57 (0.5 %) Medica l ointment eye Branch ointment diazePAM 2 Yes 2mg Take 2 mg Un you mg tablet 9-25 by mouth. ity o f 11:25: [address] erythroci Yes erythromyc Univers n 5 mg/gram 9-25 in 5 ity of (0.5 %) 11:25: mg/gram [place] ophthalmic 57 (0.5 %) Medica l ointment eye Branch ointment diazePAM 2 Yes 2mg Take 2 mg Un you mg tablet 9-25 by mouth. ity o f 11:25: [address] erythromyci Yes erythromyc Univers n 5 mg/gram 9-25 in 5 ity of (0.5 %) 11:25: mg/gram [place] ophthalmic 57 (0.5 %) Medica l ointment eye Branch ointment diazePAM 2 Yes 2mg Take 2 mg Un you mg tablet 9-25 by mouth. ity o f 11:25: [address] erythromyci Yes erythromyc Univers n 5 [...] l ointment eye Branch ointment albuterol Yes [id number] 2{puff} Inhale 2 Univers 90 9-25 Puffs ity of mcg/actuati 00:00: every 6 [place] on inhaler 00 (six) Medical hours as Branch needed for Wheezing or Shortness of Breath. albuterol Yes [id number] 2{puff} Inhale 2 Univers 90 9-25 Puffs ity of mcg/actuati 00:00: every 6 [place] on inhaler 00 (six) Medical hours as Branch needed for Wheezing or Shortness of Breath. albuterol Yes [id number] 2{puff} Inhale 2 Univers 90 9-25 Puffs ity of mcg/actuati 00:00: every 6 [place] on inhaler 00 (six) Medical hours as Branch needed for Wheezing or Shortness of Breath. albuterol Yes [id number] 2{puff} Inhale 2 Univers 90 9-25 Puffs ity of mcg/actuati 00:00: every 6 [place] on inhaler 00 (six) Medical hours as Branch needed for Wheezing or Shortness of Breath. albuterol Yes [id number] 2{puff} Inhale 2 Univers 90 9-25 Puffs ity of mcg/actuati 00:00: every 6 [place] on inhaler 00 (six) Medical hours as Branch needed for Wheezing or Shortness of Breath. albuterol Yes [id number] 2{puff} Inhale 2 Univers 90 9-25 Puffs ity of mcg/actuati 00:00: every 6 [place] on inhaler 00 (six) Medical hours as Branch needed for Wheezing or Shortness of Breath. albuterol Yes [id number] 2{puff} Inhale 2 Univers 90 9-25 Puffs ity of mcg/actuati 00:00: every 6 [place] on inhaler 00 (six) Medical hours as Branch needed for Wheezing or Shortness of Breath. albuterol Yes [id number] 2{puff} Inhale 2 [facility] 90 9-25 Puffs ity of mcg/actuati 00:00: every 6 [place] on inhaler 00 (six) Medical hours as Branch needed for Wheezing or Shortness of Breath. albuterol Yes [id number] 2{puff} Inhale 2 [facility] 90 9-25 Puffs ity of mcg/actuati 00:00: every 6 [place] on inhaler 00 (six) Medical hours as Branch needed for Wheezing or Shortness of Breath. albuterol Yes [id number] 2{puff} Inhale 2 [facility] 90 9-25 Puffs ity of mcg/actuati 00:00: every 6 [place] on inhaler 00 (six) Medical hours as Branch needed for Wheezing or Shortness of Breath. albuterol Yes [id number] 2{puff} Inhale 2 [facility] 90 9-25 Puffs ity of mcg/actuati 00:00: every 6 [place] on inhaler 00 (six) Medical hours as Branch needed for Wheezing or Shortness of Breath. albuterol Yes [id number] 2{puff} Inhale 2 [facility] 90 9-25 Puffs ity of mcg/actuati 00:00: every 6 [place] on inhaler 00 (six) Medical hours as Branch needed for Wheezing or Shortness of Breath. albuterol Yes [id number] 2{puff} Inhale 2 [facility] 90 9-25 Puffs ity of mcg/actuati 00:00: every 6 [place] on inhaler 00 (six) Medical hours as Branch needed for Wheezing or Shortness of Breath. albuterol Yes [id number] 2{puff} Inhale 2 [facility] 90 9-25 Puffs ity of mcg/actuati 00:00: every 6 [place] on inhaler 00 (six) Medical hours as Branch needed for Wheezing or Shortness of Breath. albuterol Yes [id number] 2{puff} Inhale 2 [facility] 90 9-25 Puffs ity of mcg/actuati 00:00: every 6 [place] on inhaler 00 (six) Medical hours as Branch needed for Wheezing or Shortness of Breath. albuterol Yes [id number] 2{puff} Inhale 2 [facility] 90 9-25 Puffs ity of mcg/actuati 00:00: every 6 [place] on inhaler 00 (six) Medical hours as Branch needed for Wheezing or Shortness of Breath. albuterol Yes [id number] 2{puff} Inhale 2 [facility] 90 9-25 Puffs ity of mcg/actuati 00:00: every 6 [place] on inhaler 00 (six) Medical hours as Branch needed for Wheezing or Shortness of Breath. albuterol Yes [id number] 2{puff} Inhale 2 [facility] 90 9-25 Puffs ity of mcg/actuati 00:00: every 6 [place] on inhaler 00 (six) Medical hours as Branch needed for Wheezing or Shortness of Breath. albuterol Yes [id number] 2{puff} Inhale 2 [facility] 90 9-25 Puffs ity of mcg/actuati 00:00: every 6 [place] on inhaler 00 (six) Medical hours as Branch needed for Wheezing or Shortness of Breath. albuterol Yes [id number] 2{puff} Inhale 2 [facility] 90 9-25 Puffs ity of mcg/actuati 00:00: every 6 [place] on inhaler 00 (six) Medical hours as Branch needed for Wheezing or Shortness of Breath. albuterol Yes [id number] 2{puff} Inhale 2 [facility] 90 9-25 Puffs ity of mcg/actuati 00:00: every 6 [place] on inhaler 00 (six) Medical hours as Branch needed for Wheezing or Shortness of Breath. albuterol Yes [id number] 2{puff} Inhale 2 [facility] 90 9-25 Puffs ity of mcg/actuati 00:00: every 6 [place] on inhaler 00 (six) Medical hours as Branch needed for Wheezing or Shortness of Breath. albuterol Yes [id number] 2{puff} Inhale 2 [facility] 90 9-25 Puffs ity of mcg/actuati 00:00: every 6 [place] on inhaler 00 (six) Medical hours as Branch needed for Wheezing or Shortness of Breath. albuterol 2021- No [id number] 2{puff} Inhale 2 [facility] 90 9-25 05-20 Puffs ity of mcg/actuati 00:00: 00:00 every 6 [place] on inhaler 00 :00 (six) Medical hours as Branch needed for Wheezing or Shortness of Breath. promethazin 2020- No [id number] 5mL Take 5 mL Univers e-dextromet 9-25 10-03 by mouth 4 i ty of horphan 00:00: 04:59 (four) [place] 6.25-15 00 :00 times Medical mg/5 mL daily as Branch syrup needed for Cough or Cold symptoms for up to 7 days. promethazin 2020- No [id number] 5mL Take 5 mL Univers e-dextromet 9-25 10-03 by mouth 4 i ty of horphan 00:00: 04:59 (four) [place] 6.25-15 00 :00 times Medical mg/5 mL daily as Branch syrup needed for Cough or Cold symptoms for up to 7 days. promethazin 2020- No [id number] 5mL Take 5 mL Univers e-dextromet 9-25 10-03 by mouth 4 i ty of horphan 00:00: 04:59 (four) [place] 6.25-15 00 :00 times Medical mg/5 mL daily as Branch syrup needed for Cough or Cold symptoms for up to 7 days. tiZANidine Yes Univers 2 mg tablet 9-23 ity of 00:00: Medical Branch tiZANidine Yes Univers 2 mg tablet 9-23 ity of 00:00: Medical Branch tiZANidine Yes Univers 2 mg tablet 9-23 ity of 00:00: [facility] Branch tiZANidine Yes Univers 2 mg tablet 9-23 ity of 00:00: Medical Branch tiZANidine Yes Univers 2 mg tablet 9-23 ity of 00:00: [facility] Branch tiZANidine 2021-0 Yes Univers 2 mg tablet 9-23 ity of 00:00: [place] [facility] tiZANidine 2020-0 Yes Univers 2 mg tablet 9-23 ity of 00:00: Medical Branch tiZANidine 2020-0 Yes Univers 2 mg tablet 9- ity of 00:00: [place] [facility] tiZANidine 2020-0 Yes Univers 2 mg tablet 9- ity of 00:00: Medical Branch tiZANidine 2020-0 Yes Univers 2 mg tablet 9- ity of 00:00: [place] [facility] tiZANidine 2020-0 Yes Univers 2 mg tablet 9- ity of 00:00: [place] [facility] tiZANidine 2020-0 Yes Univers 2 mg tablet 9- ity of 00:00: [place] [facility] tiZANidine 2020-0 Yes Univers 2 mg tablet 9- ity of 00:00: [place] [facility] tiZANidine 2020-0 Yes Univers 2 mg tablet 9- ity of 00:00: [place] [facility] tiZANidine 2020-0 Yes Univers 2 mg tablet 9- ity of 00:00: [place] [facility] tiZANidine 2020-0 Yes Univers 2 mg tablet 9- ity of 00:00: [place] [facility] tiZANidine 2020-0 Yes Univers 2 mg tablet 9- ity of 00:00: [place] [facility] tiZANidine 2020-0 Yes Univers 2 mg tablet 9- ity of 00:00: [place] [facility] tiZANidine 2020-0 Yes Univers 2 mg tablet 9-23 ity of 00:00: [place] [facility] tiZANidine 2020-0 Yes Univers 2 mg tablet 9-23 ity of 00:00: [place] [facility] tiZANidine 2020-0 Yes Univers 2 mg tablet 9-23 ity of 00:00: [place] [facility] tiZANidine 2020-0 Yes Univers 2 mg tablet 9-23 ity of 00:00: [place] [facility] tiZANidine 2020-0 Yes Univers 2 mg tablet 9-23 ity of 00:00: [place] [facility] tiZANidine 2020-0 Yes Univers 2 mg tablet 9-23 ity of 00:00: [place] 00 Medical Branch tiZANidine 2021-0 Yes Univers 2 mg tablet 9-23 ity of 00:00: [place] 00 Medical Branch tiZANidine 2021-0 Yes 4mg Take 4 mg Un you 2 mg tablet 9-23 by mouth 2 it y of 00:00: (two) [place] 00 times Medical daily. Branch tiZANidine 2021-0 Yes 4mg Take 4 mg Un you 2 mg tablet 9-23 by mouth 2 it y of 00:00: (two) [place] 00 times Medical daily. Branch tiZANidine 2021-0 Yes 4mg Take 4 mg Un you 2 mg tablet 9-23 by mouth 2 it y of 00:00: (two) [place] 00 times Medical daily. Branch tiZANidine 2021-0 Yes 4mg Take 4 mg Un you 2 mg tablet 9-23 by mouth 2 it y of 00:00: (two) [place] 00 times Medical daily. Branch tiZANidine 2021-0 Yes 4mg Take 4 mg Un you 2 mg tablet 9-23 by mouth 2 it y of 00:00: (two) [place] 00 times Medical daily. Branch tiZANidine 2021-0 Yes 4mg Take 4 mg Un you 2 mg tablet 9-23 by mouth 2 it y of 00:00: (two) [place] 00 times Medical daily. Branch tiZANidine 2021-0 Yes 4mg Take 4 mg Un you 2 mg tablet 9-23 by mouth 2 it y of 00:00: (two) [place] 00 times Medical daily. Branch tiZANidine 2021-0 [...] mouth 2 it y of 00:00: (two) [place] 00 times Medical daily. Branch tiZANidine 2021-0 Yes 4mg Take 4 mg Un you 2 mg tablet 9-23 by mouth 2 it y of 00:00: (two) [place] 00 times Medical daily. Branch tiZANidine 2021- No 4mg Take 4 mg U nivers 2 mg tablet 01-05 by mouth 2 i ty of 00:00: 00:00 (two) [place] 00 :00 times Medical daily. Branch ketorolac 2020- No [...] On Branch 12/30/20 at 1800, Routine maalox:diph 0 2020- No 15mL 15 mL, Uni vers enhydrAMINE 12-30 Oral, ity of :lidocaine 21:45: 20:37 ONCE, 1 [place] 2 % viscous 00 :00 dose, On Medi [facility] 1:1:1 Fri Branch (FIRST-UT 12/30/20 at [facility]) 1645, oral Routine suspension 15 [...] 2 % viscous 00 :00 dose, On [facility] 1:1:1 Fri Branch (FIRST-MOUT 12/30/20 at [facility]) 1645, oral Routine suspension 15 mL famotidine 2020- No 20mg 20 mg, Univ ers (PEPCID 12-30 Slow IV ity of (PF)) 21:45: 20:37 Push, [place] injection 00 :00 ONCE, 1 Medical 20 mg dose, On Branch 12/30/20 at 1645, Routine iopamidol 2020-0 2020- No [id number] 80mL 80 mL, Univers (ISOVUE 12-30 Intravenou ity o f 370-500 mL) 20:00: 18:48 s, ONCE, 1 [place] injection 00 :00 dose, On Medica l 80 mL Fri Branch 12/30/20 at 1500, Routine iopamidol 2020-0 2020- No [id number] 80mL 80 mL, Univers (ISOVUE 12-30 Intravenou ity o f 370-500 mL) 20:00: 18:48 s, ONCE, 1 [place] injection 00 :00 dose, On Medica l 80 mL Fri Branch 12/30/20 at 1500, Routine morpHINE 2021-0 202- No 4mg 4 mg, Slow Un you injection 4 12-30 IV Push, ity of mg 19:30: 18:35 ONCE, 1 [place] 00 :00 dose, On Medical Fri [place] 12/30/20 at 1430, STAT ondansetron 2020- No 4mg 4 mg, Slow Univers (ZOFRAN 12-30 IV Push, ity of (PF)) 19:30: 18:35 ONCE, 1 [place] injection 4 00 :00 dose, On Medi brandy mg Fri [place] 12/30/20 at 1430, [place] NaCl 0.9% 2020- No 1000mL at 999 Uni vers (NS) bolus 12-30 mL/hr, ity of infusion 19:30: 20:38 1,000 mL, [place] as 1,000 mL 00 :00 IV Medical Piggyback, [place] ONCE, 1 dose, On Sat12/30/20 at 1430, STAT morpHINE 2020- No 4mg 4 mg, Slow Un you injection 4 12-30 IV Push, ity of mg 19:30: 18:35 ONCE, 1 [place] 00 :00 dose, On Medical [facility] 12/30/20 at 1430, STAT ondansetron 2020- No 4mg 4 mg, Slow Univers (ZOFRAN 12-30 IV Push, ity of (PF)) 19:30: 18:35 ONCE, 1 [place] injection 4 00 :00 dose, On Medi brandy mg [facility] 12/30/20 at 1430, [place]IS NaCl 0.9% 2020- No 1000mL at 999 Uni vers (NS) bolus 12-30 mL/hr, ity of infusion 19:30: 20:38 1,000 mL, [place] as 1,000 mL 00 :00 IV Medical Piggyback, Branch ONCE, 1 dose, On Sat12/30/20 at 1430, STAT traZODone Yes 100mg Take 100 Uni vers 100 mg 9-17 mg by ity of tablet 10:15: mouth at [place] 06 bedtime. [facility] Branch traZODone 0 Yes 100mg Take 100 Uni vers 100 mg 9-17 mg by ity of tablet 10:15: mouth at [place] [address] bedtime. Medical Branch traZODone 1-0 Yes 100mg Take 100 Uni vers 100 mg 9-17 mg by ity of tablet 10:15: mouth at [place] [address] bedtime. Medical Branch traZODone 1-0 Yes 100mg Take 100 Uni vers 100 mg 9-17 mg by ity of tablet 10:15: mouth at [place] [address] bedtime. Medical Branch traZODone 1-0 Yes 100mg Take 100 Uni vers 100 mg 9-17 mg by ity of tablet 10:15: mouth at [place] [address] bedtime. Medical Branch traZODone 1-0 Yes 100mg Take 100 Uni vers 100 mg 9-17 mg by ity of tablet 10:15: mouth at [place] [address] bedtime. Medical Branch traZODone 1-0 Yes 100mg Take 100 Uni vers 100 mg 9-17 mg by ity of tablet 10:15: mouth at [place] [address] bedtime. Medical Branch traZODone 1-0 Yes 100mg Take 100 Uni vers 100 mg 9-17 mg by ity of tablet 10:15: mouth at [place] [address] bedtime. Medical Branch traZODone 2020-0 Yes 100mg Take 100 Uni vers 100 mg 9-17 mg by ity of tablet 10:15: mouth at [place] [address] bedtime. Medical Branch traZODone 1-0 Yes 100mg Take 100 Uni vers 100 mg 9-17 mg by ity of tablet 10:15: mouth at [place] [address] bedtime. Medical Branch traZODone 1-0 Yes 100mg Take 100 Uni vers 100 mg 9-17 mg by ity of tablet 10:15: mouth at [place] [address] bedtime. Medical Branch traZODone 1-0 Yes 100mg Take 100 Uni vers 100 mg 9-17 mg by ity of tablet 10:15: mouth at [place] [address] bedtime. Medical Branch traZODone 1-0 Yes 100mg Take 100 Uni vers 100 mg 9-17 mg by ity of tablet 10:15: mouth at [place] [address] bedtime. Medical Branch traZODone 1-0 Yes 100mg Take 100 Uni vers 100 mg 9-17 mg by ity of tablet 10:15: mouth at [place] [address] bedtime. Medical Branch traZODone 1-0 Yes 100mg Take 100 Uni vers 100 mg 9-17 mg by ity of tablet 10:15: mouth at [place] 06 bedtime. Medical Branch traZODone 2020-0 Yes 100mg Take 100 Uni vers 100 mg 9-17 mg by ity of tablet 10:15: mouth at [place] 06 bedtime. Medical Branch dicyclomine 2020-0 Yes [id number] 20mg Take 1 Univers 20 mg 9-17 tablet by ity of tablet 00:00: mouth [place] 00 every 6 Medical (six) Branch hours as needed for Abdominal pain. dicyclomine 2020-0 Yes [id number] 20mg Take 1 Univers 20 mg 9-17 tablet by ity of tablet 00:00: mouth [place] 00 every 6 Medical (six) Branch hours as needed for Abdominal pain. dicyclomine 2020-0 Yes [id number] 20mg Take 1 Univers 20 mg 9-17 tablet by ity of tablet 00:00: mouth [place] 00 every 6 Medical (six) Branch hours as needed for Abdominal pain. dicyclomine 2020-0 Yes [id number] 20mg Take 1 Univers 20 mg 9-17 tablet by ity of tablet 00:00: mouth [place] 00 every 6 Medical (six) Branch hours as needed for Abdominal pain. dicyclomine 2020-0 Yes [id number] 20mg Take 1 Univers 20 mg 9-17 tablet by ity of tablet 00:00: mouth [place] 00 every 6 Medical (six) Branch hours as needed for Abdominal pain. dicyclomine 2020-0 Yes [id number] 20mg Take 1 Univers 20 mg 9-17 tablet by ity of tablet 00:00: mouth [place] 00 every 6 Medical (six) Branch hours as needed for Abdominal pain. dicyclomine 2020-0 Yes [id number] 20mg Take 1 Univers 20 mg 9-17 tablet by ity of tablet 00:00: mouth [place] 00 every 6 Medical (six) Branch hours as needed for Abdominal pain. dicyclomine 2020-0 Yes [id number] 20mg Take 1 Univers 20 mg 9-17 tablet by ity of tablet 00:00: mouth [place] 00 every 6 Medical (six) Branch hours as needed for Abdominal pain. dicyclomine 2020-0 Yes [id number] 20mg Take 1 Univers 20 mg 9-17 tablet by ity of tablet 00:00: mouth [place] 00 every 6 Medical (six) Branch hours as needed for Abdominal pain. dicyclomine 2020-0 Yes [id number] 20mg Take 1 Univers 20 mg 9-17 tablet by ity of tablet 00:00: mouth [place] 00 every 6 Medical (six) Branch hours as needed for Abdominal pain. dicyclomine 2020-0 Yes [id number] 20mg Take 1 Univers 20 mg 9-17 tablet by ity of tablet 00:00: mouth [place] 00 every 6 Medical (six) Branch hours as needed for Abdominal pain. dicyclomine 2020-0 Yes [id number] 20mg Take 1 Univers 20 mg 9-17 tablet by ity of tablet 00:00: mouth [place] 00 every 6 Medical (six) Branch hours as needed for Abdominal pain. dicyclomine 2020-0 Yes [id number] 20mg Take 1 Univers 20 mg 9-17 tablet by ity of tablet 00:00: mouth [place] 00 every 6 Medical (six) Branch hours as needed for Abdominal pain. dicyclomine 2020-0 Yes [id number] 20mg Take 1 Univers 20 mg 9-17 tablet by ity of tablet 00:00: mouth [place] 00 every 6 Medical (six) Branch hours as needed for Abdominal pain. dicyclomine 2020-0 Yes [id number] 20mg Take 1 Univers 20 mg 9-17 tablet by ity of tablet 00:00: mouth [place] 00 every 6 Medical (six) Branch hours as needed for Abdominal pain. dicyclomine 2020-0 Yes [id number] 20mg Take 1 Univers 20 mg 9-17 tablet by ity of tablet 00:00: mouth [place] 00 every 6 Medical (six) Branch hours as needed for Abdominal pain. dicyclomine 2020-0 Yes [id number] 20mg Take 1 Univers 20 mg 9-17 tablet by ity of tablet 00:00: mouth [place] 00 every 6 Medical (six) Branch hours as needed for Abdominal pain. dicyclomine 1-0 2022- No [id number] 20mg Take 1 Univers 20 mg 9-17 [...] times Branch daily. cephALEXin 2021-0 2020- No [id number] 500mg Take 1 Univers 500 mg 12-16 capsule by ity of capsule 00:00: 04:59 mouth 4 [place] 00 :00 ([facility]) [facility] daily for 7 days. cephALEXin 0 2020- No [id number] 500mg Take 1 Univers 500 mg 12-16 capsule by ity of capsule 00:00: 04:59 mouth 4 [place] 00 :00 ([facility]) [facility] daily for 7 days. hydrOXYzine 0 Yes Univer s 25 mg 9- ity of tablet 00:00: [place] [facility] SERTraline 2020-0 Yes Univers 25 mg 9- ity of tablet 00:00: [place] [facility] hydrOXYzine 2020-0 Yes Univer s 25 mg 9- ity of tablet 00:00: [place] [facility] SERTraline 2020-0 Yes Univers 25 mg 9- ity of tablet 00:00: [address] hydrOXYzine 2020-0 Yes Univer s 25 mg 9- ity of tablet 00:00: [address] SERTraline 2020-0 Yes Univers 25 mg 9- ity of tablet 00:00: [address] hydrOXYzine 2020-0 Yes Univer s 25 mg 9- ity of tablet 00:00: [address] SERTraline 2020-0 Yes Univers 25 mg 9- ity of tablet 00:00: [address] hydrOXYzine 2020-0 Yes Univer s 25 mg 9- ity of tablet 00:00: [address] SERTraline 2020-0 Yes Univers 25 mg 9-01 ity of tablet 00:00: [place] [facility] hydrOXYzine 2020-0 Yes Univer s 25 mg 9-01 ity of tablet 00:00: [address] SERTraline 2020-0 Yes Univers 25 mg 9-01 ity of tablet 00:00: [place] [facility] hydrOXYzine 2020-0 Yes Univer s 25 mg 9- ity of tablet 00:00: [address] SERTraline 2020-0 Yes Univers 25 mg 9-01 ity of tablet 00:00: [place] [facility] hydrOXYzine 2020-0 Yes Univer s 25 mg 9-01 ity of tablet 00:00: [place] [facility] Branch SERTraline 2020-0 Yes Univers 25 mg 9- ity of tablet 00:00: [place] [facility] Branch hydrOXYzine 2020-0 Yes Univer s 25 mg 9- ity of tablet 00:00: [place] [facility] SERTraline 2020-0 Yes Univers 25 mg 9- ity of tablet 00:00: [place] [facility] hydrOXYzine 2020-0 Yes Univer s 25 mg 9- ity of tablet 00:00: [place] Medical Branch SERTraline 2020-0 Yes Univers 25 mg 9- ity of tablet 00:00: [place] [facility] Branch hydrOXYzine 2020-0 Yes Univer s 25 mg 9- ity of tablet 00:00: [place] [facility] Branch SERTraline 2020-0 Yes Univers 25 mg 9- ity of tablet 00:00: [place] [facility] hydrOXYzine 2020-0 Yes Univer s 25 mg 9- ity of tablet 00:00: [place] [facility] Branch SERTraline 2020-0 Yes Univers 25 mg 9- ity of tablet 00:00: [place] [facility] hydrOXYzine 2020-0 Yes Univer s 25 mg 9- ity of tablet 00:00: [place] [facility] Branch SERTraline 2020-0 Yes Univers 25 mg 9- ity of tablet 00:00: [place] [facility] hydrOXYzine 2020-0 Yes Univer s 25 mg 9- ity of tablet 00:00: [place] [facility] Branch SERTraline 2020-0 Yes Univers 25 mg 9- ity of tablet 00:00: [facility] Branch hydrOXYzine 2020-0 Yes Univer s 25 mg 9- ity of tablet 00:00: [address] Branch SERTraline 2020-0 Yes Univers 25 mg 9- ity of tablet 00:00: [place] [facility] Branch SERTraline 2020-0 Yes Univers 25 mg 9- ity of tablet 00:00: [place] [facility] Branch SERTraline 2020-0 Yes Univers 25 mg 9- ity of tablet 00:00: [place] [facility] SERTraline 2020-0 Yes Univers 25 mg 9- ity of tablet 00:00: [place] [facility] SERTraline 2021-0 Yes Univers 25 mg 9-01 ity of tablet 00:00: [facility] SERTraline Yes Univers 25 mg 12-14 ity of tablet 00:00: [facility] SERTraline Yes Univers 25 mg 12-14 ity of tablet 00:00: [facility] SERTraline Yes Univers 25 mg 12-14 ity of tablet 00:00: [facility] SERTraline Yes Univers 25 mg 12-14 ity of tablet 00:00: [facility] Branch SERTraline 2021- No Univer s 25 mg 12-14 05-20 ity of tablet 00:00: 00:00 [place] 00 :00 [facility] hydrOXYzine 2021- No Unive rs 25 mg 12-14 02-06 ity of tablet 00:00: 00:00 [place] 00 :00 [facility] morpHINE 2020- No 4mg 4 mg, Slow Un you injection 4 12-06 IV Push, ity of mg 00:00: 23:00 ONCE, 1 [place] 00 :00 dose, [facility] Medical 12/05/20 at Branch 1900, STAT dicyclomine 2020- No 20mg 20 mg, Uni vers (BENTYL) 12-06 Intramuscu ity of injection 00:00: 23:00 [place], ONCE, [place] 20 mg 00 :00 1 dose, [facility] 12/05/20 at 1900, Routine iopamidol 2020- No [id number] 120mL 120 mL, Univers (ISOVUE 12-05 Intravenou ity o f 370-500 mL) 22:30: 21:20 s, ONCE, 1 [place] injection 00 :00 dose, [facility] Medic al 120 mL 12/05/20 at Branch 1730, Routine famotidine No 20mg 20 mg, Univ ers (PEPCID 12-05 Slow IV ity of (PF)) 22:15: 22:14 Push, [place] injection 00 :00 ONCE, 1 Medical 20 mg dose, [facility] 12/05/20 at 1715, [place] maalox:diph 2020- No 15mL 15 mL, Uni vers enhydrAMINE 12-05 Oral, ity of :lidocaine 22:15: 22:13 ONCE, 1 [place] 2 % viscous 00 :00 dose, Mon Med ical 1:1:1 12/05/20 at [place] (FIRST-MOUT 1715, HWASH BLM) Routine oral suspension 15 mL NaCl 0.9% 2020- No 1000mL at 999 Uni vers (NS) bolus 12-05 mL/hr, ity of infusion 22:00: 23:51 1,000 mL, [place] 1,000 mL 00 :00 IV Medical Piggyback, [place] ONCE, 1 dose, [facility] 12/05/20 at 1700, STAT ondansetron 2020- No 4mg 4 mg, Slow Univers (ZOFRAN 12-05 IV Push, ity of (PF)) 22:00: 22:13 ONCE, 1 [place] injection 4 00 :00 dose, Mon Med ical mg 12/05/20 at [place] 1700, [place] morpHINE 2020- No 4mg 4 mg, Slow Un you injection 4 12-05 IV Push, ity of mg 22:00: 22:15 ONCE, 1 [place] 00 :00 dose, [facility] Medical 12/05/20 at [place] 1700, STAT ondansetron 0 Yes [id number] 4mg Take 1 Univers 4 mg 8-23 tablet by ity of disintegrat 00:00: mouth [place] ing tablet 00 every 8 Medica l (eight) Branch hours as needed for Nausea and Vomiting (N/V). ondansetron 0 Yes [id number] 4mg Take 1 Univers 4 mg 8-23 tablet by ity of disintegrat 00:00: mouth [place] ing tablet 00 every 8 Medica l (eight) Branch hours as needed for Nausea and Vomiting (N/V). ondansetron 2020-0 Yes [id number] 4mg Take 1 Univers 4 mg 8-23 tablet by ity of disintegrat 00:00: mouth [place] ing tablet 00 every 8 Medica l (eight) Branch hours as needed for Nausea and Vomiting (N/V). ondansetron 2020-0 Yes [id number] 4mg Take 1 Univers 4 mg 8-23 tablet by ity of disintegrat 00:00: mouth [place] ing tablet 00 every 8 Medica l (eight) Branch hours as needed for Nausea and Vomiting (N/V). ondansetron 2020-0 Yes [id number] 4mg Take 1 Univers 4 mg 8-23 tablet by ity of disintegrat 00:00: mouth [place] ing tablet 00 every 8 Medica l (eight) Branch hours as needed for Nausea and Vomiting (N/V). ondansetron 2020-0 Yes [id number] 4mg Take 1 Univers 4 mg 8-23 tablet by ity of disintegrat 00:00: mouth [place] ing tablet 00 every 8 Medica l (eight) Branch hours as needed for Nausea and Vomiting (N/V). ondansetron 2020-0 Yes [id number] 4mg Take 1 Univers 4 mg 8-23 tablet by ity of disintegrat 00:00: mouth [place] ing tablet 00 every 8 Medica l (eight) Branch hours as needed for Nausea and Vomiting (N/V). ondansetron 2020-0 Yes [id number] 4mg Take 1 Univers 4 mg 8-23 tablet by ity of disintegrat 00:00: mouth [place] ing tablet 00 every 8 Medica l (eight) Branch hours as needed for Nausea and Vomiting (N/V). ondansetron 2020-0 Yes [id number] 4mg Take 1 Univers 4 mg 8-23 tablet by ity of disintegrat 00:00: mouth [place] ing tablet 00 every 8 Medica l (eight) Branch hours as needed for Nausea and Vomiting (N/V). ondansetron 2020-0 Yes [id number] 4mg Take 1 Univers 4 mg 8-23 tablet by ity of disintegrat 00:00: mouth [place] ing tablet 00 every 8 Medica l (eight) Branch hours as needed for Nausea and Vomiting (N/V). ondansetron 2020-0 Yes [id number] 4mg Take 1 Univers 4 mg 8-23 tablet by ity of disintegrat 00:00: mouth [place] ing tablet 00 every 8 Medica l (eight) Branch hours as needed for Nausea and Vomiting (N/V). ondansetron 2020-0 Yes [id number] 4mg Take 1 Univers 4 mg 8-23 tablet by ity of disintegrat 00:00: mouth [place] ing tablet 00 every 8 Medica l (eight) Branch hours as needed for Nausea and Vomiting (N/V). ondansetron 0 Yes [id number] 4mg Take 1 Univers 4 mg 8-23 tablet by ity of disintegrat 00:00: mouth [place] ing tablet 00 every 8 Medica l (eight) Branch hours as needed for Nausea and Vomiting (N/V). ondansetron 0 Yes [id number] 4mg Take 1 Univers 4 mg 8-23 tablet by ity of disintegrat 00:00: mouth [place] ing tablet 00 every 8 Medica l (eight) Branch hours as needed for Nausea and Vomiting (N/V). ondansetron 0 Yes [id number] 4mg Take 1 Univers 4 mg 8-23 tablet by ity of disintegrat 00:00: mouth [place] ing tablet 00 every 8 Medica l (eight) Branch hours as needed for Nausea and Vomiting (N/V). ondansetron 0 Yes [id number] 4mg Take 1 Univers 4 mg 8-23 tablet by ity of disintegrat 00:00: mouth [place] ing tablet 00 every 8 Medica l (eight) Branch hours as needed for Nausea and Vomiting (N/V). ondansetron 0 Yes [id number] 4mg Take 1 Univers 4 mg 8-23 tablet by ity of disintegrat 00:00: mouth [place] ing tablet 00 every 8 Medica l (eight) Branch hours as needed for Nausea and Vomiting (N/V). ondansetron 0 Yes [id number] 4mg Take 1 [facility] 4 mg 8-23 tablet by ity of disintegrat 00:00: mouth [place] ing tablet 00 every 8 Medica l (eight) Branch hours as needed for Nausea and Vomiting (N/V). ondansetron 0 Yes [id number] 4mg Take 1 [facility] 4 mg 8-23 tablet by ity of disintegrat 00:00: mouth [place] ing tablet 00 every 8 Medica l (eight) Branch hours as needed for Nausea and Vomiting (N/V). ondansetron 2020-0 Yes [id number] 4mg Take 1 [facility] 4 mg 8-23 tablet by ity of disintegrat 00:00: mouth [place] ing tablet 00 every 8 Medica l (eight) Branch hours as needed for Nausea and Vomiting (N/V). ondansetron Yes [id number] 4mg Take 1 [facility] 4 mg 8-23 tablet by ity of disintegrat 00:00: mouth [place] ing tablet 00 every 8 Medica l (eight) Branch hours as needed for Nausea and Vomiting (N/V). ondansetron Yes [id number] 4mg Take 1 [facility] 4 mg 8-23 tablet by ity of disintegrat 00:00: mouth [place] ing tablet 00 every 8 Medica l (eight) Branch hours as needed for Nausea and Vomiting (N/V). ondansetron Yes [id number] 4mg Take 1 [facility] 4 mg 8-23 tablet by ity of disintegrat 00:00: mouth [place] ing tablet 00 every 8 Medica l (eight) Branch hours as needed for Nausea and Vomiting (N/V). ondansetron Yes [id number] 4mg Take 1 [facility] 4 mg 8-23 tablet by ity of disintegrat 00:00: mouth [place] ing tablet 00 every 8 Medica l (eight) Branch hours as needed for Nausea and Vomiting (N/V). ondansetron 2021- No [id number] 4mg Take 1 [facility] 4 mg 8-23 02-06 tablet by ity of disintegrat 00:00: 00:00 mouth [place] tablet 00 :00 every 8 Medica l (eight) Branch hours as needed for Nausea and Vomiting (N/V). dicyclomine 2020- No [id number] 20mg Take 1 [facility] 20 mg 8-23 08-31 tablet by ity of tablet 00:00: 04:59 mouth 4 [place] 00 :00 (four) Medical times Branch daily for 7 days. fenofibrate Yes 134mg 134 mg, Un you micronized - Oral, ity of (LOFIBRA) 14:00: DAILY, [place] capsule 134 00 First dose Me dical mg on [place] Branch 10/13/20 at 0900, Until Discontinu ed, Routine traZODone Yes 100mg Take 100 Uni vers 100 mg 7-01 mg by ity of tablet 01:44: mouth at [place] 06 bedtime. Medical Branch losartan 2021-0 Yes 100mg Take 100 Univ ers 100 mg 7-01 mg by ity of tablet 01:44: mouth [place] 06 daily. Medical Branch gabapentin 2020-0 Yes 300mg Take 300 Un you 300 mg 7-01 mg by ity of capsule 01:44: mouth 2 [place] 06 (two) Medical times Branch daily. traZODone 0 Yes 100mg Take 100 Uni vers 100 mg 7-01 mg by ity of tablet 01:44: mouth at [place] 06 bedtime. Medical Branch losartan 0 Yes 100mg Take 100 Univ ers 100 mg 7-01 mg by ity of tablet 01:44: mouth [place] 06 daily. Medical Branch gabapentin Yes 300mg Take 300 Un you 300 mg 7-01 mg by ity of capsule 01:44: mouth 2 [place] 06 (two) Medical times [place] daily. HYDROcodone 0 Yes 1{tbl} 1 tablet, Univers -acetaminop 7 Oral, BID, it y of hen (NORCO 01:00: First dose [place] 5) 5-325 mg 00 on Sat Medica l tablet 1 10/12/20 at [facility] h tablet 1999, Until Discontinu ed, [...] ONCE, 1 [place] 00 :[place] dose, [facility] Medical 10/12/20 at Branch 1245, Routine lipase-prot 2020-0 Yes 3{capsu 3 capsule, Univers ease-amylas 10-12 [...] Branch 0800, Until Discontinu ed, Routine heparin 0 Yes 5000U 5,000 Univers (porcine) 6-30 Units, ity of injection 13:00: [place] 5,000 Units 00 us, Q12H, Med ical First dose Branch on Sat10/12/20 at 0800, Until Discontinu ed, Routine traZODone Yes 100mg 100 mg, Univ ers (DESYREL) 6-30 Oral, QHS, ity of tablet 100 03:00: First dose [place] mg 00 on Sat10/11/20 at Branch 2200, [...] 18 :18 Starting Medi brandy tablet 1 [facility] tablet 10/11/20 at 2151, Until [place] 10/13/20 at 2150, Routine, Pain (scale 4-6) ibuprofen 0 Yes 200mg 200 mg, Univ ers (MOTRIN IB) 6-30 Oral, ity of tablet 200 02:51: Q6HPRN, [place] mg 13 Starting Medical [facility] 10/11/20 at 2151, Until Discontinu ed, Routine, Pain (scale 1-3) morpHINE 2020- No 4mg 4 mg, Slow Un you injection 4 10-12 06-30 IV Push, ity of mg 01:15: 00:14 ONCE, 1 [place] 00 :00 dose, [facility] 10/11/20 at Branch 2014, STAT fenofibrate 0 Yes [id number] 145mg Take 1 [facility] 145 mg 6-30 tablet by ity of tablet 00:00: mouth [place] 00 daily. Medical Branch lipase-prot 2020-0 Yes [id number] 3{capsu Take 3 [facility] ease-amylas 6-30 le} capsules ity of e 00:00: by mouth 3 [place] 12,000-38,0 00 (three) Medic al 00 -60,000 times Branch unit daily with capsule meals. ursodioL 2020-0 Yes [id number] 250mg Take 1 Un you 250 mg 6-30 tablet by ity of tablet 00:00: mouth 2 [place] 00 (two) Medical times Branch daily. fenofibrate 2020-0 Yes [id number] 145mg Take 1 [facility] 145 mg 6-30 tablet by ity of tablet 00:00: mouth [place] 00 daily. Medical Branch lipase-prot 2020-0 Yes [id number] 3{capsu Take 3 [facility] ease-amylas 6-30 le} capsules ity of e 00:00: by mouth 3 [place] 12,000-38,0 00 (three) Medic al 00 -60,000 times Branch unit daily with capsule meals. ursodioL 2020-0 Yes [id number] 250mg Take 1 Un you 250 mg 6-30 tablet by ity of tablet 00:00: mouth 2 [place] 00 (two) Medical times Branch daily. fenofibrate 2020-0 Yes [id number] 145mg Take 1 [facility] 145 mg 6-30 tablet by ity of tablet 00:00: mouth [place] 00 daily. Medical Branch lipase-prot 2020-0 Yes [id number] 3{capsu Take 3 [facility] ease-amylas 6-30 le} capsules ity of e 00:00: by mouth 3 [place] 12,000-38,0 00 (three) Medic al 00 -60,000 times Branch unit daily with capsule meals. ursodioL 2020-0 Yes [id number] 250mg Take 1 Un you 250 mg 6-30 tablet by ity of tablet 00:00: mouth 2 00 (two) Medical times Branch daily. fenofibrate 2020-0 Yes [id number] 145mg Take 1 [facility] 145 mg 6-30 tablet by ity of tablet 00:00: mouth [place] 00 daily. Medical Branch lipase-prot 2020-0 Yes [id number] 3{capsu Take 3 [facility] ease-amylas 6-30 le} capsules ity of e 00:00: by mouth 3 [place] 12,000-38,0 00 (three) Medic al 00 -60,000 times Branch unit daily with capsule meals. ursodioL 2020-0 Yes [id number] 250mg Take 1 Un you 250 mg 6-30 tablet by ity of tablet 00:00: mouth 2 00 (two) Medical times Branch daily. fenofibrate 2020-0 Yes [id number] 145mg Take 1 [facility] 145 mg 6-30 tablet by ity of tablet 00:00: mouth [place] 00 daily. Medical Branch lipase-prot 2020-0 Yes [id number] 3{capsu Take 3 [facility] ease-amylas 6-30 le} capsules ity of e 00:00: by mouth 3 [place] 12,000-38,0 00 (three) Medic al 00 -60,000 times Branch unit daily with capsule meals. ursodioL 2020-0 Yes [id number] 250mg Take 1 Un you 250 mg 6-30 tablet by ity of tablet 00:00: mouth 2 [place] 00 (two) Medical times Branch daily. fenofibrate 2020-0 Yes [id number] 145mg Take 1 [facility] 145 mg 6-30 tablet by ity of tablet 00:00: mouth [place] 00 daily. Medical Branch lipase-prot 2020-0 Yes [id number] 3{capsu Take 3 [facility] ease-amylas 6-30 le} capsules ity of e 00:00: by mouth 3 [place] 12,000-38,0 00 (three) Medic al 00 -60,000 times Branch unit daily with capsule meals. ursodioL 2020-0 Yes [id number] 250mg Take 1 Un you 250 mg 6-30 tablet by ity of tablet 00:00: mouth 2 [place] 00 (two) Medical times Branch daily. fenofibrate 2020-0 Yes [id number] 145mg Take 1 [facility] 145 mg 6-30 tablet by ity of tablet 00:00: mouth [place] 00 daily. Medical Branch lipase-prot 2020-0 Yes [id number] 3{capsu Take 3 [facility] ease-amylas 6-30 le} capsules ity of e 00:00: by mouth 3 [place] 12,000-38,0 00 (three) Medic al 00 -60,000 times Branch unit daily with capsule meals. ursodioL 2020-0 Yes [id number] 250mg Take 1 Un you 250 mg 6-30 tablet by ity of tablet 00:00: mouth 2 00 (two) Medical times Branch daily. fenofibrate 2020-0 Yes [id number] 145mg Take 1 [facility] 145 mg 6-30 tablet by ity of tablet 00:00: mouth [place] 00 daily. Medical Branch lipase-prot 2020-0 Yes [id number] 3{capsu Take 3 [facility] ease-amylas 6-30 le} capsules ity of e 00:00: by mouth 3 [place] 12,000-38,0 00 (three) Medic al 00 -60,000 times Branch unit daily with capsule meals. ursodioL 2020-0 Yes [id number] 250mg Take 1 Un you 250 mg 6-30 tablet by ity of tablet 00:00: mouth 2 [place] 00 (two) Medical times Branch daily. fenofibrate 2020-0 Yes [id number] 145mg Take 1 [facility] 145 mg 6-30 tablet by ity of tablet 00:00: mouth [place] 00 daily. Medical Branch lipase-prot 2020-0 Yes [id number] 3{capsu Take 3 [facility] ease-amylas 6-30 le} capsules ity of e 00:00: by mouth 3 [place] 12,000-38,0 00 (three) Medic al 00 -60,000 times Branch unit daily with capsule meals. ursodioL 2020-0 Yes [id number] 250mg Take 1 Un you 250 mg 6-30 tablet by ity of tablet 00:00: mouth 2 00 (two) Medical times Branch daily. fenofibrate 2020-0 Yes [id number] 145mg Take 1 [facility] 145 mg 6-30 tablet by ity of tablet 00:00: mouth [place] 00 daily. Medical Branch lipase-prot 2020-0 Yes [id number] 3{capsu Take 3 [facility] ease-amylas 6-30 le} capsules ity of e 00:00: by mouth 3 [place] 12,000-38,0 00 (three) Medic al 00 -60,000 times Branch unit daily with capsule meals. ursodioL 2020-0 Yes [id number] 250mg Take 1 Un you 250 mg 6-30 tablet by ity of tablet 00:00: mouth 2 00 (two) Medical times Branch daily. fenofibrate 2020-0 Yes [id number] 145mg Take 1 [facility] 145 mg 6-30 tablet by ity of tablet 00:00: mouth 00 daily. Medical Branch lipase-prot 2020-0 Yes [id number] 3{capsu Take 3 [facility] ease-amylas 6-30 le} capsules ity of e 00:00: by mouth 3 [place] 12,000-38,0 00 (three) Medic al 00 -60,000 times Branch unit daily with capsule meals. ursodioL 2020-0 Yes [id number] 250mg Take 1 Un you 250 mg 6-30 tablet by ity of tablet 00:00: mouth 2 (two) Medical times Branch daily. fenofibrate 2020-0 Yes [id number] 145mg Take 1 [facility] 145 mg 6-30 tablet by ity of tablet 00:00: mouth [place] 00 daily. Medical Branch lipase-prot 2020-0 Yes [id number] 3{capsu Take 3 [facility] ease-amylas 6-30 le} capsules ity of e 00:00: by mouth 3 [place] 12,000-38,0 00 (three) Medic al 00 -60,000 times Branch unit daily with capsule meals. ursodioL 2020-0 Yes [id number] 250mg Take 1 Un you 250 mg 6-30 tablet by ity of tablet 00:00: mouth 2 00 (two) Medical times Branch daily. fenofibrate 2020-0 Yes [id number] 145mg Take 1 [facility] 145 mg 6-30 tablet by ity of tablet 00:00: mouth [place] 00 daily. Medical Branch lipase-prot 2020- Yes [id number] 3{capsu Take 3 [facility] ease-amylas 6-30 le} capsules ity of e 00:00: by mouth 3 [place] 12,000-38,0 00 (three) Medic al 00 -60,000 times Branch unit daily with capsule meals. ursodioL 2020- Yes [id number] 250mg Take 1 Un you 250 mg 6-30 tablet by ity of tablet 00:00: mouth 2 [place] 00 (two) Medical times Branch daily. fenofibrate 2020- Yes [id number] 145mg Take 1 [facility] 145 mg 6-30 tablet by ity of tablet 00:00: mouth [place] 00 daily. Medical Branch lipase-prot Yes [id number] 3{capsu Take 3 [facility] ease-amylas 6-30 le} capsules ity of e 00:00: by mouth 3 [place] 12,000-38,0 00 (three) Medic al 00 -60,000 times Branch unit daily with capsule meals. ursodioL Yes [id number] 250mg Take 1 Un you 250 mg 6-30 tablet by ity of tablet 00:00: mouth 2 00 (two) Medical times Branch daily. fenofibrate 2020- Yes [id number] 145mg Take 1 [facility] 145 mg 6-30 tablet by ity of tablet 00:00: mouth [place] 00 daily. Medical Branch lipase-prot 2020- Yes [id number] 3{capsu Take 3 [facility] ease-amylas 6-30 le} capsules ity of e 00:00: by mouth 3 [place] 12,000-38,0 00 (three) Medic al 00 -60,000 times Branch unit daily with capsule meals. ursodioL 2020-0 Yes [id number] 250mg Take 1 Un you 250 mg 6-30 tablet by ity of tablet 00:00: mouth 2 [place] 00 (two) Medical times Branch daily. fenofibrate 2020-0 Yes [id number] 145mg Take 1 [facility] 145 mg 6-30 tablet by ity of tablet 00:00: mouth [place] 00 daily. Medical Branch lipase-prot 2020- Yes [id number] 3{capsu Take 3 [facility] ease-amylas 6-30 le} capsules ity of e 00:00: by mouth 3 [place] 12,000-38,0 00 (three) Medic al 00 -60,000 times Branch unit daily with capsule meals. ursodioL 2020-0 Yes [id number] 250mg Take 1 Un you 250 mg 6-30 tablet by ity of tablet 00:00: mouth 2 [place] 00 (two) Medical times Branch daily. fenofibrate 2020-0 Yes [id number] 145mg Take 1 [facility] 145 mg 6-30 tablet by ity of tablet 00:00: mouth [place] 00 daily. Medical Branch lipase-prot 2020-0 Yes [id number] 3{capsu Take 3 [facility] ease-amylas 6-30 le} capsules ity of e 00:00: by mouth 3 [place] 12,000-38,0 00 (three) Medic al 00 -60,000 times Branch unit daily with capsule meals. ursodioL 2020-0 Yes [id number] 250mg Take 1 Un you 250 mg 6-30 tablet by ity of tablet 00:00: mouth 2 [place] 00 (two) Medical times Branch daily. fenofibrate 2020-0 Yes [id number] 145mg Take 1 [facility] 145 mg 6-30 tablet by ity of tablet 00:00: mouth [place] 00 daily. Medical Branch lipase-prot 2020-0 Yes [id number] 3{capsu Take 3 [facility] ease-amylas 6-30 le} capsules ity of e 00:00: by mouth 3 [place] 12,000-38,0 00 (three) Medic al 00 -60,000 times Branch unit daily with capsule meals. ursodioL 2020-0 Yes [id number] 250mg Take 1 Un you 250 mg 6-30 tablet by ity of tablet 00:00: mouth 2 [place] 00 (two) Medical times Branch daily. fenofibrate 2020-0 Yes [id number] 145mg Take 1 [facility] 145 mg 6-30 tablet by ity of tablet 00:00: mouth [place] 00 daily. Medical Branch lipase-prot 2020-0 Yes [id number] 3{capsu Take 3 [facility] ease-amylas 6-30 le} capsules ity of e 00:00: by mouth 3 [place] 12,000-38,0 00 (three) Medic al 00 -60,000 times Branch unit daily with capsule meals. ursodioL 2020-0 Yes [id number] 250mg Take 1 Un you 250 mg 6-30 tablet by ity of tablet 00:00: mouth 2 00 (two) Medical times Branch daily. fenofibrate 2020-0 Yes [id number] 145mg Take 1 [facility] 145 mg 6-30 tablet by ity of tablet 00:00: mouth [place] 00 daily. Medical Branch lipase-prot 2020-0 Yes [id number] 3{capsu Take 3 [facility] ease-amylas 6-30 le} capsules ity of e 00:00: by mouth 3 [place] 12,000-38,0 00 (three) Medic al 00 -60,000 times Branch unit daily with capsule meals. ursodioL 2020-0 Yes [id number] 250mg Take 1 Un you 250 mg 6-30 tablet by ity of tablet 00:00: mouth 2 (two) Medical times Branch daily. fenofibrate 2020-0 Yes [id number] 145mg Take 1 [facility] 145 mg 6-30 tablet by ity of tablet 00:00: mouth [place] 00 daily. Medical Branch fenofibrate 2020-0 Yes [id number] 145mg Take 1 [facility] 145 mg 6-30 tablet by ity of tablet 00:00: mouth [place] 00 daily. Medical Branch lipase-prot 2020-0 Yes [id number] 3{capsu Take 3 [facility] ease-amylas 6-30 le} capsules ity of e 00:00: by mouth 3 [place] 12,000-38,0 00 (three) Medic al 00 -60,000 times Branch unit daily with capsule meals. ursodioL 2020-0 Yes [id number] 250mg Take 1 Un you 250 mg 6-30 tablet by ity of tablet 00:00: mouth 2 00 (two) Medical times Branch daily. lipase-prot 2020-0 Yes [id number] 3{capsu Take 3 [facility] ease-amylas 6-30 le} capsules ity of e 00:00: by mouth 3 [place] 12,000-38,0 00 (three) Medic al 00 -60,000 times Branch unit daily with capsule meals. ursodioL 2020-0 Yes [id number] 250mg Take 1 Un you 250 mg 6-30 tablet by ity of tablet 00:00: mouth 2 00 (two) Medical times Branch daily. fenofibrate 2020-0 Yes [id number] 145mg Take 1 [facility] 145 mg 6-30 tablet by ity of tablet 00:00: mouth [place] 00 daily. Medical Branch lipase-prot 2020-0 Yes [id number] 3{capsu Take 3 [facility] ease-amylas 6-30 le} capsules ity of e 00:00: by mouth 3 [place] 12,000-38,0 00 (three) Medic al 00 -60,000 times Branch unit daily with capsule meals. ursodioL 2020-0 Yes [id number] 250mg Take 1 Un you 250 mg 6-30 tablet by ity of tablet 00:00: mouth 2 [place] 00 (two) Medical times Branch daily. fenofibrate 2020-0 Yes [id number] 145mg Take 1 [facility] 145 mg 6-30 tablet by ity of tablet 00:00: mouth [place] 00 daily. Medical Branch lipase-prot 2020-0 Yes [id number] 3{capsu Take 3 [facility] ease-amylas 6-30 le} capsules ity of e 00:00: by mouth 3 [place] 12,000-38,0 00 (three) Medic al 00 -60,000 times Branch unit daily with capsule meals. ursodioL 2020-0 Yes [id number] 250mg Take 1 Un you 250 mg 6-30 tablet by ity of tablet 00:00: mouth 2 00 (two) Medical times Branch daily. fenofibrate 2020-0 Yes [id number] 145mg Take 1 [facility] 145 mg 6-30 tablet by ity of tablet 00:00: mouth [place] 00 daily. Medical Branch fenofibrate 2020-0 Yes [id number] 145mg Take 1 [facility] 145 mg 6-30 tablet by ity of tablet 00:00: mouth [place] 00 daily. Medical Branch fenofibrate 2020-0 Yes [id number] 145mg Take 1 [facility] 145 mg 6-30 tablet by ity of tablet 00:00: mouth [place] 00 daily. Medical Branch lipase-prot 2020-0 Yes [id number] 3{capsu Take 3 [facility] ease-amylas 6-30 le} capsules ity of e 00:00: by mouth 3 [place] 12,000-38,0 00 (three) Medic al 00 -60,000 times Branch unit daily with capsule meals. ursodioL 2020-0 Yes [id number] 250mg Take 1 Un you 250 mg 6-30 tablet by ity of tablet 00:00: mouth 2 [place] 00 (two) Medical times Branch daily. fenofibrate 2020-0 Yes [id number] 145mg Take 1 [facility] 145 mg 6-30 tablet by ity of tablet 00:00: mouth [place] 00 daily. Medical Branch fenofibrate 2020-0 Yes [id number] 145mg Take 1 [facility] 145 mg 6-30 tablet by ity of tablet 00:00: mouth [place] 00 daily. Medical Branch fenofibrate 2020-0 Yes [id number] 145mg Take 1 [facility] 145 mg 6-30 tablet by ity of tablet 00:00: mouth [place] 00 daily. Medical Branch fenofibrate 2020-0 Yes [id number] 145mg Take 1 [facility] 145 mg 6-30 tablet by ity of tablet 00:00: mouth [place] 00 daily. Medical Branch fenofibrate 2020-0 Yes [id number] 145mg Take 1 [facility] 145 mg 6-30 tablet by ity of tablet 00:00: mouth [place] 00 daily. Medical Branch fenofibrate 2020-0 Yes [id number] 145mg Take 1 [facility] 145 mg 6-30 tablet by ity of tablet 00:00: mouth [place] 00 daily. Medical Branch fenofibrate 2020-0 Yes [id number] 145mg Take 1 [facility] 145 mg 6-30 tablet by ity of tablet 00:00: mouth [place] 00 daily. Medical Branch fenofibrate 2020-0 Yes [id number] 145mg Take 1 [facility] 145 mg 6-30 tablet by ity of tablet 00:00: mouth [place] 00 daily. Medical Branch fenofibrate 2020-0 Yes [id number] 145mg Take 1 [facility] 145 mg 6-30 tablet by ity of tablet 00:00: mouth [place] 00 daily. Medical Branch fenofibrate 2020-0 Yes [id number] 145mg Take 1 [facility] 145 mg 6-30 tablet by ity of tablet 00:00: mouth [place] 00 daily. Medical Branch fenofibrate 2020-0 Yes [id number] 145mg Take 1 [facility] 145 mg 6-30 tablet by ity of tablet 00:00: mouth [place] 00 daily. Medical Branch fenofibrate 2020-0 Yes [id number] 145mg Take 1 [facility] 145 mg 6-30 tablet by ity of tablet 00:00: mouth [place] 00 daily. Medical Branch fenofibrate 2020-0 Yes [id number] 145mg Take 1 [facility] 145 mg 6-30 tablet by ity of tablet 00:00: mouth [place] 00 daily. Medical Branch fenofibrate Yes [id number] 145mg Take 1 [facility] 145 mg 6-30 tablet by ity of tablet 00:00: mouth [place] 00 daily. [facility] Branch fenofibrate Yes [id number] 145mg Take 1 [facility] 145 mg 6-30 tablet by ity of tablet 00:00: mouth [place] 00 daily. [facility] Branch fenofibrate Yes [id number] 145mg Take 1 [facility] 145 mg 6-30 tablet by ity of tablet 00:00: mouth [place] 00 daily. [facility] Branch fenofibrate Yes [id number] 145mg Take 1 [facility] 145 mg 6-30 tablet by ity of tablet 00:00: mouth [place] 00 daily. [facility] fenofibrate Yes [id number] 145mg Take 1 Univers 145 mg 6-30 tablet by ity of tablet 00:00: mouth [place] 00 daily. [facility] fenofibrate Yes [id number] 145mg Take 1 [facility] 145 mg 6-30 tablet by ity of tablet 00:00: mouth [place] 00 daily. [facility] fenofibrate 2021- No [id number] 145mg Take 1 [facility] 145 mg 6-30 10-25 tablet by ity of tablet 00:00: 00:00 mouth [place] 00 :00 daily. [facility] lipase-prot 2021- No [id number] 3{capsu Take 3 [facility] ease-amylas -05-21 le} capsules ity of e 00:00: 00:00 by mouth 3 [place] 12,000-38,0 00 :00 (three) Medic al 00 -60,000 times Branch unit daily with capsule meals. ursodioL 2021- No [id number] 250mg Take 1 U nivers 250 mg 10-12 tablet by ity of tablet 00:00: 00:00 mouth 2 [place] 00 :00 (two) Medical times Branch daily. morpHINE 2020- No 6mg 6 mg, Slow Un you injection 6 10-11 IV Push, ity of mg 22:15: 21:09 ONCE, 1 [place] 00 :00 dose, e Medical 10/11/20 at Branch 1715, STAT FENTanyl PF 2020- No 100ug 100 mcg, Univers (SUBLIMAZE 10-11 Slow IV ity o f (PF)) 20:00: 18:53 Push, [place] injection 00 :00 ONCE, 1 Medical 100 mcg dose, [facility] 10/11/20 at 1500, Routine ondansetron 2020-0 2020- No 4mg 4 mg, Slow Univers (ZOFRAN 10-11 IV Push, ity of (PF)) 20:00: 18:54 ONCE, 1 [place] injection 4 00 :00 dose, Tue Med ical mg 10/11/20 at Branch 1500, [place] morpHINE 2020-0 202- No 6mg 6 mg, Slow Un you injection 6 10-11 IV Push, ity of mg 16:45: 15:42 ONCE, 1 [place] 00 :00 dose, [facility] 10/11/20 at Branch 1145, STAT FENTanyl PF 2020-2020- No 100ug 100 mcg, Univers (SUBLIMAZE 10-11 Slow IV ity o f (PF)) 16:15: 15:06 Push, [place] injection 00 :00 ONCE, 1 Medical 100 mcg dose, [facility] 10/11/20 at 1115, Routine metoclopram 2020-2020- No 10mg 10 mg, Uni vers selena HCl 10-11 Slow IV ity of (REGLAN) 16:15: 15:06 Push, [place] injection 00 :00 ONCE, 1 Medical 10 mg dose, [facility] 10/11/20 at 1115, [place] morpHINE 2020-0 2020- No 4mg 4 mg, Slow Un you injection 4 10-05 IV Push, ity of mg 01:15: 00:15 ONCE, 1 [place] 00 :00 dose, [facility] 10/04/20 at Branch 2015, STAT ondansetron 2020-0 2020- No 4mg 4 mg, Slow Univers (ZOFRAN 10-05 IV Push, ity of (PF)) 00:00: 23:22 ONCE, 1 [place] injection 4 00 :00 dose, Tue Med ical mg 10/04/20 at Branch 1900, [place] FENTanyl PF 2020-0 202- No 50ug 50 mcg, Un you (SUBLIMAZE 10-05 Slow IV ity o f (PF)) 00:00: 23:22 Push, [place] injection 00 :00 ONCE, 1 Medical 50 mcg dose, Tue Branch 10/04/20 at 1900, STAT NaCl 0.9% 1000mL at 999 Uni vers (NS) bolus 10-04 06-23 mL/hr, ity of infusion 23:00: 01:20 1,000 mL, [place] 1,000 mL 00 :00 IV Medical Infusion, Branch ONCE, 1 dose, 10/04/20 at 1800, [place] promethazin Yes [id number] 50mg Insert 1 Univers e 50 mg 6-22 Suppositor ity of suppository 00:00: y [place] 00 rectum Medical every 6 Branch (six) hours as needed for Nausea and Vomiting (N/V). ondansetron Yes [id number] 4mg Take 1 Univers (ZOFRAN 6-22 tablet by ity of ODT) 4 mg 00:00: mouth [place] disintegrat 00 every 8 Medic al ing tablet (eight) Branch hours as needed for Nausea and Vomiting (N/V). promethazin Yes [id number] 50mg Insert 1 Univers e 50 mg 6-22 Suppositor ity of suppository 00:00: y [place] 00 rectum Medical every 6 Branch (six) hours as needed for Nausea and Vomiting (N/V). promethazin Yes [id number] 50mg Insert 1 Univers e 50 mg 6-22 Suppositor ity of suppository 00:00: y [place] 00 rectum Medical every 6 Branch (six) hours as needed for Nausea and Vomiting (N/V). promethazin Yes [id number] 50mg Insert 1 Univers e 50 mg 6-22 Suppositor ity of suppository 00:00: y [place] 00 rectum Medical every 6 Branch (six) hours as needed for Nausea and Vomiting (N/V). promethazin Yes [id number] 50mg Insert 1 Univers e 50 mg 6-22 Suppositor ity of suppository 00:00: y [place] 00 rectum Medical every 6 Branch (six) hours as needed for Nausea and Vomiting (N/V). promethazin Yes [id number] 50mg Insert 1 Univers e 50 mg 6-22 Suppositor ity of suppository 00:00: y [place] 00 rectum Medical every 6 Branch (six) hours as needed for Nausea and Vomiting (N/V). promethazin Yes [id number] 50mg Insert 1 Univers e 50 mg 6-22 Suppositor ity of suppository 00:00: y [place] 00 rectum Medical every 6 Branch (six) hours as needed for Nausea and Vomiting (N/V). promethazin Yes [id number] 50mg Insert 1 Univers e 50 mg 6-22 Suppositor ity of suppository 00:00: y [place] 00 rectum Medical every 6 Branch (six) hours as needed for Nausea and Vomiting (N/V). promethazin Yes [id number] 50mg Insert 1 Univers e 50 mg 6-22 Suppositor ity of suppository 00:00: y [place] 00 rectum Medical every 6 Branch (six) hours as needed for Nausea and Vomiting (N/V). promethazin Yes [id number] 50mg Insert 1 Univers e 50 mg 6-22 Suppositor ity of suppository 00:00: y [place] 00 rectum Medical every 6 Branch (six) hours as needed for Nausea and Vomiting (N/V). promethazin Yes [id number] 50mg Insert 1 Univers e 50 mg 6-22 Suppositor ity of suppository 00:00: y [place] 00 rectum Medical every 6 Branch (six) hours as needed for Nausea and Vomiting (N/V). promethazin Yes [id number] 50mg Insert 1 Univers e 50 mg 6-22 Suppositor ity of suppository 00:00: y [place] 00 rectum Medical every 6 Branch (six) hours as needed for Nausea and Vomiting (N/V). promethazin Yes [id number] 50mg Insert 1 [facility] 50 mg 6-22 [facility] [place] supp[place] 00:[place] rectum Medical every 6 Branch (six) hours as needed for Nausea and Vomiting (N/V). promethazin Yes [id number] 50mg Insert 1 [facility] e 50 mg 6-22 Suppositor [facility] of suppository 00:00: [place] rectum Medical every 6 Branch (six) hours as needed for Nausea and Vomiting (N/V). promethazin Yes [id number] 50mg Insert 1 [facility] e 50 mg 6-22 Suppositor [facility] of suppository 00:00: [place] rectum Medical every 6 Branch (six) hours as needed for Nausea and Vomiting (N/V). promethazin Yes [id number] 50mg Insert 1 [facility] e 50 mg 6-22 Suppositor [facility] of suppository 00:00: [place] rectum Medical every 6 Branch (six) hours as needed for Nausea and Vomiting (N/V). promethazin Yes [id number] 50mg Insert 1 [facility] e 50 mg 6-22 Suppositor [facility] of suppository 00:00: [place] rectum Medical every 6 Branch (six) hours as needed for Nausea and Vomiting (N/V). promethazin Yes [id number] 50mg Insert 1 [facility] e 50 mg 6-22 Suppositor [facility]y of suppository 00:00: [place] rectum Medical every 6 Branch (six) hours as needed for Nausea and Vomiting (N/V). promethazin Yes [id number] 50mg Insert 1 [facility] e 50 mg 6-22 Suppositor ity of suppository 00:00: [place] 00 rectum Medical every 6 Branch (six) hours as needed for Nausea and Vomiting (N/V). promethazin Yes [id number] 50mg Insert 1 [facility] e 50 mg 6-22 Suppositor ity of suppository 00:00: [place] rectum Medical every 6 Branch (six) hours as needed for Nausea and Vomiting (N/V). promethazin Yes [id number] 50mg Insert 1 [facility] e 50 mg 6-22 Suppositor [facility]y of suppository 00:00: [place] 00 rectum Medical every 6 Branch (six) hours as needed for Nausea and Vomiting (N/V). promethazin 2021- No [id number] 50mg Insert 1 [facility] e 50 mg 6-22 01-01 Suppositor ity o f suppository 00:00: 00:00 y into [place] 00 :00 rectum Medical every 6 Branch (six) hours as needed for Nausea and Vomiting (N/V). ondansetron 0 1- No [id number] 4mg Take 1 [facility] (ZOFRAN 10-0430 tablet by ity of ODT) 4 mg 00:00: 00:00 mouth [place] disintegrat 00 :00 every 8 Medic al ing tablet (eight) Branch hours as needed for Nausea and Vomiting (N/V). Gabapentin Gabapentin 2020-0 No 1{capsu TID Gabapentin 300 MG 300 MG 6-04 le} 300 MG 00:00: 00 Gabapentin Gabapentin 2020-0 No 1{capsu TID Gabapentin 300 MG 300 MG 6-04 le} 300 MG 00:00: 00 Gabapentin Gabapentin 2020-0 No 1{capsu TID Gabapentin 300 MG 300 MG 6-04 le} 300 MG 00:00: 00 Gabapentin Gabapentin 2020-0 No 1{capsu TID Gabapentin 300 MG 300 MG 6-04 le} 300 MG 00:00: 00 Gabapentin Gabapentin 2020-0 No 1{capsu TID Gabapentin 300 MG 300 MG 6-04 le} 300 MG 00:00: 00 Gabapentin Gabapentin 2020-0 No 1{capsu TID Gabapentin 300 MG 300 MG 6-04 le} 300 MG 00:00: 00 Gabapentin Gabapentin 2020-0 No 1{capsu TID Gabapentin 300 MG 300 MG 6-04 le} 300 MG 00:00: 00 Gabapentin Gabapentin 2020-0 No 1{capsu TID Gabapentin 300 MG 300 MG 6-04 le} 300 MG 00:00: 00 Gabapentin Gabapentin 2020-0 No 1{capsu TID Gabapentin 300 MG 300 MG 6-04 le} 300 MG 00:00: 00 Gabapentin Gabapentin 2020-0 No 1{capsu TID Gabapentin 300 MG 300 MG 6-04 le} 300 MG 00:00: 00 Gabapentin Gabapentin 2020-0 No 1{capsu TID Gabapentin 300 MG 300 MG 6-04 le} 300 MG 00:00: 00 losartan 1-0 Yes TAKE [address] [facility] (COZAAR) 5-28 [facility]T [facility] MG 13:24: MOUTH Medical tablet 24 EVERY DAY Center diazePAM 2021-0 Yes 2mg Take [address] [facility] [...] Medical tablet 24 EVERY DAY Center diazePAM 0 Yes 2mg Take [address] [facility] [...] Medical tablet 24 EVERY DAY Center diazePAM 0 Yes 2mg Take [address] [facility] (VALIUM) 2 5-28 by mouth 2 [facility] MG tablet 13:24: (two) Medical 24 times Center daily as needed for Anxiety. losartan Yes TAKE [address] [facility] (COZAAR) 5-28 TABLET [facility] 100 MG 13:24: MOUTH Medical tablet 24 EVERY DAY Center diazePAM 0 Yes 2mg Take [address] [facility] (VALIUM) 2 5-28 by mouth 2 [facility] MG tablet 13:24: (two) Medical 24 times Center daily as needed for Anxiety. losartan Yes TAKE [address] [facility] (COZAAR) 5-28 TABLET [facility] 100 MG 13:24: MOUTH Medical tablet 24 EVERY DAY Center pancrelipas 2021- No [id number]{ Take [address] [facility], 5-28 05-28 [...] 2 (two) times daily. pancrelipas 2021- No [id number]{ Take [address] [facility], - 05-28 lipase} capsules [facility] Lip-Prot-Am 00:00: 23:59 (72,000 Me dical yl, (CREON) 00 :00 units of Cent er 24,000-76,0 lipase 00 -120,000 total) by unit CpDR mouth 3 capsule (three) times daily with meals. ursodioL 2021- No 500mg Q.5D Take 1 [facility] - [facility]28 [facility] 500 MG 00:00: 23:59 (500 mg Medical tablet 00 :00 total) by Center mouth 2 (two) times daily. pancrelipas 2021- No [id number]{ Take [address] [facility], - 05-28 lipase} capsules [facility] Lip-Prot-[facility] 00:00: 23:59 (72,000 Me dical yl, (CREON) 00 :00 units of Cent er 24,000-76,0 lipase 00 -120,000 total) by unit CpDR mouth 3 capsule (three) times daily with meals. ursodioL 2021- No 500mg Q.5D Take 1 [facility] 5- 05-28 [facility] 500 MG 00:00: 23:59 (500 mg Medical tablet 00 :00 total) by Center mouth 2 (two) times daily. pancrelipas 2021- No [id number]{ Take [address] [facility], -28 05-28 lipase} capsules [facility]-Prot[facility] 00:00: 23:59 [...] 2 (two) times daily. pancrelipas 2021- No [id number]{ Take [address] [facility], 09-09 lipase} [...] 2 (two) times daily. pancrelipas 2021- No [id number]{ Take [address] [facility], 09-09 lipase} [...] Fri Med ical ing tablet 08/05/20 at [facility] 4 mg 0930, Routine tiZANidine 2020-0 Yes 2mg Q.5D Take [address] [facility] [address] [facility] (ZANAFLEX) 4-19 by mouth 2 [facility] [facility] 2 MG tablet 00:00: (two) Medic al 00 times Center daily. traZODone 2020-0 Yes 100mg QD Take [address] [facility] (DESYREL) 4-19 mg by [facility] 100 MG 00:00: mouth Medical tablet 00 nightly. Center tiZANidine 2020-0 Yes 2mg Q.5D Take [address] [facility] [address] [facility] (ZANAFLEX) 4-19 by mouth 2 [facility] 2 MG tablet 00:00: (two) Medic al 00 times Center daily. traZODone 1-0 Yes 100mg QD Take [address] [facility] (DESYREL) 4-19 mg by [facility] 100 MG 00:00: mouth Medical tablet 00 nightly. Center tiZANidine 2020-0 Yes 2mg Q.5D Take [address] [facility] [address] [facility] (ZANAFLEX) 4-19 by mouth 2 [facility] 2 MG tablet 00:00: (two) Medic al 00 times Center daily. traZODone 2021-0 Yes 100mg QD Take [address] [facility] (DESYREL) 4-19 mg by [facility] 100 MG 00:00: mouth Medical tablet 00 nightly. Center tiZANidine 2020-0 Yes 2mg Q.5D Take [address] [facility] [address] [facility] (ZANAFLEX) 4-19 by mouth 2 [facility] 2 MG tablet 00:00: (two) Medic al 00 times Center daily. traZODone 1-0 Yes 100mg QD Take [address] [facility] (DESYREL) 4-19 mg by [facility] 100 MG 00:00: mouth Medical tablet 00 nightly. Center tiZANidine 1-0 Yes 2mg Q.5D Take [address] [facility] [address] [facility] (ZANAFLEX) 4-19 by mouth 2 [facility] 2 MG tablet 00:00: (two) Medic al 00 times Center daily. traZODone 1-0 Yes 100mg QD Take [address] [facility] (DESYREL) 4-19 mg by [facility] 100 MG 00:00: mouth Medical tablet 00 nightly. Center tiZANidine 1-0 Yes 2mg Q.5D Take [address] [facility] [address] [facility] (ZANAFLEX) 4-19 by mouth 2 [facility] 2 MG tablet 00:00: (two) Medic al 00 times Center daily. traZODone 1-0 Yes 100mg QD Take [address] [facility] (DESYREL) 4-19 mg by [facility] 100 MG 00:00: mouth Medical tablet 00 nightly. [place] traZODone 2020-0 Yes 100mg Take 100 [facility] vers 100 mg 4-05 mg by ity of tablet 13:30: mouth at [place] [address] bedtime. [facility] traZODone 2020-0 Yes 100mg Take 100 Uni vers 100 mg 4-05 mg by ity of tablet 13:30: mouth at [place] [address] bedtime. [facility] traZODone 2020-0 Yes 100mg Take 100 Uni vers 100 mg 4-05 mg by ity of tablet 13:30: mouth at [place] [address] bedtime. [facility] Branch triamcinolo 0 Yes PRN, Univer s ne 4-05 Starting ity of acetonide 12:07: [place]18[place] (KENALOG[place] 00 at 0707, Medica l injection Until Branch Discontinu ed, Routine, Intra-op iohexoL Yes PRN, Univers (OMNIPAQUE 4-05 Starting ity o f 300-50 mL)) 12:07: 07/18/20 [place] injection 00 at 0707, Medica l Until Branch Discontinu ed, Routine, Intra-op lidocaine Yes PRN, Univers 1% -05 Starting ity of (XYLOCAINE) 12:07: 07/18/20 [place] 10 mg/mL (1 00 at 0707, Medi brandy %) Until Branch injection Discontinu ed, Routine, Intra-op triamcinolo 2020- No PRN, Unive rs ne 07-18 Starting ity of acetonide 12:07: 15:30 07/18/20 [place] (KENALOG) 00 :22 at 0707, Medica l injection Until Mon Branc h 07/18/20 at 1030, Routine, Intra-op iohexoL 2020- No PRN, Univers (OMNIPAQUE 07-18 Starting ity of 300-50 mL)) 12:07: 15:30 [...] 22 :00 bedtime. Medical tablet Branch divalproex No 500mg Take 500 U nivers (DEPAKOTE) 07-18-05 [...] Take 15 mg U nivers 15 mg -05 04-05 by mouth ity of capsule 11:43: [...] mouth ity of tablet 11:42: 00:00 daily. [place] 27 :00 Medical Branch carvediloL 2020- No 12.5mg Take 12.5 Univers 12.5 mg 4-05 04-05 mg by ity of tablet 11:42: 00:00 mouth 2 [place] 27 :00 (two) Medical times [place] daily with meals. traZODone Yes 100mg Take 100 Uni vers 100 mg 4-05 mg by ity of tablet 11:28: mouth at [place] 50 bedtime. Medical Branch losartan Yes 100mg 100 mg, Unive rs (COZAAR) 07-08 Oral, ity of tablet 100 14:00: DAILY, [place] mg 00 First dose Medical on Sat [place] 07/08/20 at 0900, Until Discontinu ed, Routine ondansetron 2020- No 4mg 4 mg, Slow Univers (ZOFRAN 07-08 IV Push, ity of (PF)) 03:15: 02:29 ONCE, 1 [place] injection 4 00 :00 dose, [place] Med ical mg 07/07/20 at Branch 2215, [place] morpHINE 2020- No 4mg 4 mg, Slow Un you injection 4 07-08 IV Push, ity of mg 03:15: 02:28 ONCE, 1 [place] 00 :00 dose, [facility] Medical 07/07/20 at Branch 2215, STAT morpHINE 2020- No 4mg 4 mg, Slow Un you injection 4 07-08 IV Push, ity of mg 01:45: 01:05 ONCE, 1 [place] 00 :00 dose, [facility] Medical 07/07/20 at Branch 2045, STAT iohexol 2020- No [id number] 120mL 120 mL, Univers (OMNIPAQUE 07-08 Intravenou [...] IV Medical Infusion, Branch ONCE, 1 dose, [place] 07/07/20 at 1999, STAT ondansetron 2020- No 4mg 4 mg, Slow Univers (ZOFRAN 07-08 IV Push, ity of (PF)) 01:00: 00:25 ONCE, 1 [place] injection 4 00 :00 dose, [place] Med ical mg 07/07/20 at Branch 1999, [place] ondansetron 2020-0 Yes [id number] 4mg Take 1 [facility] (ZOFRAN 3-25 tablet by ity of ODT) 4 mg 00:00: mouth [place] disintegrat 00 every 8 Medic al ing tablet (eight) Branch hours as needed for Nausea and Vomiting (N/V). ondansetron 2020-0 Yes [id number] 4mg Take 1 [facility] (ZOFRAN 3-25 tablet by ity of ODT) 4 mg 00:00: mouth [place] disintegrat 00 every 8 Medic al ing tablet (eight) Branch hours as needed for Nausea and Vomiting (N/V). ondansetron 2020-0 Yes [id number] 4mg Take 1 [facility] (ZOFRAN 3-25 tablet by ity of ODT) 4 mg 00:00: mouth [place] disintegrat 00 every 8 Medic al ing tablet (eight) Branch hours as needed for Nausea and Vomiting (N/V). ondansetron 2020-0 Yes [id number] 4mg Take 1 [facility] (ZOFRAN 3-25 tablet by ity of ODT) 4 mg 00:00: mouth [place] disintegrat 00 every 8 Medic al ing tablet (eight) Branch hours as needed for Nausea and Vomiting (N/V). ondansetron 2020-0 Yes [id number] 4mg Take 1 Univers (ZOFRAN 3-25 tablet by ity of ODT) 4 mg 00:00: mouth [place] disintegrat 00 every 8 Medic al ing tablet (eight) Branch hours as needed for Nausea and Vomiting (N/V). ondansetron 2021-0 Yes [id number] 4mg Take 1 [facility] (ZOFRAN 3-25 tablet by ity of ODT) 4 mg 00:00: mouth [place] disintegrat 00 every 8 Medic al ing tablet (eight) Branch hours as needed for Nausea and Vomiting (N/V). ondansetron 2021-0 Yes [id number] 4mg Take 1 [facility] (ZOFRAN 3-25 tablet by ity of ODT) 4 mg 00:00: mouth [place] disintegrat 00 every 8 Medic al ing tablet (eight) Branch hours as needed for Nausea and Vomiting (N/V). ondansetron 2021-0 Yes [id number] 4mg Take 1 [facility] (ZOFRAN 3-25 tablet by ity of ODT) 4 mg 00:00: mouth [place] disintegrat 00 every 8 Medic al ing tablet (eight) Branch hours as needed for Nausea and Vomiting (N/V). ondansetron 2021-0 Yes [id number] 4mg Take 1 [facility] (ZOFRAN 3-25 tablet by ity of ODT) 4 mg 00:00: mouth [place] disintegrat 00 every 8 Medic al ing tablet (eight) Branch hours as needed for Nausea and Vomiting (N/V). ondansetron 2021-0 Yes [id number] 4mg Take 1 [facility] (ZOFRAN 3-25 tablet by ity of ODT) 4 mg 00:00: mouth [place] disintegrat 00 every 8 Medic al ing tablet (eight) Branch hours as needed for Nausea and Vomiting (N/V). ondansetron 2021-0 Yes [id number] 4mg Take 1 [facility] (ZOFRAN 3-25 tablet by ity of ODT) 4 mg 00:00: mouth [place] disintegrat 00 every 8 Medic al ing tablet (eight) Branch hours as needed for Nausea and Vomiting (N/V). ondansetron 2021-0 Yes [id number] 4mg Take 1 [facility] (ZOFRAN 3-25 tablet by ity of ODT) 4 mg 00:00: mouth [place] disintegrat 00 every 8 Medic al ing tablet (eight) Branch hours as needed for Nausea and Vomiting (N/V). ondansetron 2021-0 Yes [id number] 4mg Take 1 [facility] (ZOFRAN 3-25 tablet by ity of ODT) 4 mg 00:00: mouth [place] disintegrat 00 every 8 Medic al ing tablet (eight) Branch hours as needed for Nausea and Vomiting (N/V). ondansetron 2020-0 Yes [id number] 4mg Take 1 [facility] (ZOFRAN 3-25 tablet by ity of ODT) 4 mg 00:00: mouth [place] disintegrat 00 every 8 Medic al ing tablet (eight) Branch hours as needed for Nausea and Vomiting (N/V). ondansetron 2020-0 Yes [id number] 4mg Take 1 [facility] (ZOFRAN 3-25 tablet by ity of ODT) 4 mg 00:00: mouth [place] disintegrat 00 every 8 Medic al ing tablet (eight) Branch hours as needed for Nausea and Vomiting (N/V). ondansetron 2020-0 Yes [id number] 4mg Take 1 [facility] (ZOFRAN 3-25 tablet by ity of ODT) 4 mg 00:00: mouth [place] disintegrat 00 every 8 Medic al ing tablet (eight) Branch hours as needed for Nausea and Vomiting (N/V). ondansetron 2020-0 Yes [id number] 4mg Take 1 [facility] (ZOFRAN 3-25 tablet by ity of ODT) 4 mg 00:00: mouth [place] disintegrat 00 every 8 Medic al ing tablet (eight) Branch hours as needed for Nausea and Vomiting (N/V). ondansetron 2020-0 Yes [id number] 4mg Take 1 [facility] (ZOFRAN 3-25 tablet by ity of ODT) 4 mg 00:00: mouth [place] disintegrat 00 every 8 Medic al ing tablet (eight) Branch hours as needed for Nausea and Vomiting (N/V). ondansetron 2020-0 Yes [id number] 4mg Take 1 [facility] (ZOFRAN 3-25 tablet by ity of ODT) 4 mg 00:00: mouth [place] disintegrat 00 every 8 Medic al ing tablet (eight) Branch hours as needed for Nausea and Vomiting (N/V). ondansetron 2020-0 2021- No [id number] 4mg Take 1 Univers (ZOFRAN 3-25 12-06 [...] by ity of tablet 13:47: mouth at [place] [address] bedtime. Medical Branch ARIPiprazol 0 Yes 10mg Take 10 mg Univers e 10 mg 3-22 by mouth ity of tablet 13:47: daily. [place] 04 Medical Branch carvediloL 2020-0 Yes 12.5mg [...] mouth 2 ity of capsule 13:47: (two) [place] [address] times Medical daily. Branch chlordiazeP Yes 10mg Take 10 mg Univers OXIDE 10 mg 3-22 by mouth 3 it y of capsule 13:47: (three) [place] [address] times Medical daily. Branch meloxicam Yes 7.5mg Take 7.5 Uni vers 7.5 mg 3-22 mg by ity of tablet 13:47: mouth 04 daily. Medical Branch lithium Yes 300mg Take 300 Unive rs carbonate 3-22 mg by ity of 300 mg 13:47: mouth 2 [place] capsule 04 (two) Medical times [place] daily. temazepam Yes 15mg Take 15 mg Un you 15 mg 3-22 by mouth ity of capsule 13:47: at bedtime [place] 04 as needed Medical for Branch Insomnia. ursodioL Yes 500mg Take 500 Univ ers 500 mg 3-22 mg by ity of tablet 13:47: mouth 2 04 (two) Medical times [place] daily. traZODone 0 Yes 100mg Take 100 Uni vers 100 mg 3-22 mg by ity of tablet 13:47: mouth at [place] [address] bedtime. Medical Branch ARIPiprazol Yes 10mg Take 10 mg Univers e 10 mg 3-22 by mouth ity of tablet 13:47: daily. [place] Medical Branch carvediloL Yes 12.5mg Take 12.5 Univers 12.5 mg 3-22 mg by ity of tablet 13:47: mouth 2 04 (two) Medical times [place] daily with meals. lactated 0 Yes 1000mL at 100 Unive rs ringers IV 3-22 mL/hr, ity of infusion 13:15: 1,000 mL, [place] 1,000 mL 00 IV Medical Infusion, Branch CONTINUOUS , Starting 07/04/20 at 0815, Until Discontinu ed, Routine, PACU FENTanyl PF Yes 25ug 25 mcg, [...] Yes 4mg 4 mg, Slow Univers (ZOFRAN 07-04 IV Push, ity of (PF)) 13:10: PRN, 1 [place] injection 4 11 dose, Medical mg Starting Branch Sat07/04/20 at 0810, Until Discontinu ed, Routine, Nausea and Vomiting (N/V), PACU ceFAZolin Yes 1000mg 1,000 mg, U nivers (ANCEF) 07-04 IV ity of 1,000 mg in 12:00: Piggyback, [place] NaCl 0.9% 00 Q8H ABX, Medica l (NS) 50 mL First dose Bra nch MINI-BAG on Sat07/04/20 at 0700, Until Discontinu ed, 50 mL, [facility] Pre-op
Reason for Anti-Infec tive: Surgical Prophylaxi s
Surgi brandy Prophylaxi s: Orthopaedi c
Durat ion of therapy: within 24 hours of surgery lactated 0 Yes 1000mL at 75 Univer s ringers [...] 3 it y of capsule 16:25: (three) [place] 42 times Medical daily. Branch meloxicam 2020-0 [...] Until Branch Discontinu ed, Routine, Intra-op bupivacaine 2021-0 Yes PRN, Univer s (preserv 08 Starting ity of free) 14:10: 06/20/20 [place] (SENSORCAIN 00 at 0810, Medi brandy E MPF) 0.25 Until Branch % (2.5 Discontinu mg/mL) ed, injection Routine, Intra-op lidocaine 0 Yes PRN, Univers 1% 08 Starting ity of (XYLOCAINE) 14:09: 06/20/20 [place] 10 mg/mL (1 00 at 0809, Medi brandy %) Until Branch injection Discontinu ed, Routine, Intra-op propofoL IV 2020- No Intravenou Univers infusion 06-20 03-08 s, ONCE ity of 14:05: 14:12 INTRA [place] 00 :42 PROCEDURE, Medical Starting Branch [facility] 06/20/20 at 0805, Until Sat06/20/20 at 0812, Routine, Intra-op lactated 2020-0 202- No IV Univers ringers IV 06-20-08 Infusion, ity of infusion 14:03: 14:12 CONTINUOUS [place] 00 :42 PRN, Medical Starting Branch [facility] 06/20/20 at 0803, Until Sat06/20/20 at 0812, Routine, Intra-op lactated 2020-0 2020- No 1000mL at 42 Unive rs ringers IV 06-20 03-08 mL/hr, ity of infusion 13:00: 13:17 1,000 mL, [place] 1,000 mL 00 :00 IV Medical Infusion, Branch ONCE, 1 dose, [facility] 06/20/20 at 0700, Routine, DSU Pre-op LOSARTAN [...] mg 33 bedtime. Medical tablet Branch divalproex 0 Yes [...] 56 (two) Medical times Branch daily. LOSARTAN Yes 100mg Take 100 Univ ers POTASSIUM 3-05 mg by ity of (LOSARTAN 16:06: mouth [place] ORAL) 56 daily. Medical Branch gabapentin Yes 300mg Take 300 Un you (NEURONTIN) 3-05 mg by ity of 300 mg 16:06: mouth 3 [place] capsule 56 (three) Medical times Branch daily. QUEtiapine Yes [...] 56 (two) Medical times Branch daily. LOSARTAN 202-0 [...] [place] 19 times Medical daily. Branch chlordiazeP 2021-0 Yes 10mg Take 10 mg Univers OXIDE 10 mg 3-05 by mouth 3 it y of capsule 16:05: (three) [place] 19 times Medical daily. Branch chlordiazeP Yes 10mg Take 10 mg Univers OXIDE 10 mg 3-05 by mouth 3 it y of capsule 16:05: (three) [place] 19 times Medical daily. Branch butalbital- 2020- [...] IV ity of (REGLAN) 22:45: 21:51 Push, [place] injection 00 :00 ONCE, 1 Medical 10 [...] 1000mL at 999 Uni vers (NS) bolus 1-22 01-23 mL/hr, ity of infusion 21:45: 00:30 1,000 mL, [place] 1,000 mL 00 :00 IV Medical Infusion, Branch ONCE, 1 dose, 05/06/20 at 1545, [place] butalbital- Yes [id number] 1{tbl} Take 1 [facility] acetaminoph 1-22 tablet by ity of en-caff 00:00: mouth [place] 50-325-40 00 every 6 Medical mg tablet (six) Branch hours as needed for Pain (scale 7-10) or Other (headache) . butalbital- Yes [id number] 1{tbl} Take 1 [facility] acetaminoph 1-22 tablet by ity of en-caff 00:00: mouth [place] 50-325-40 00 every 6 Medical mg tablet (six) Branch hours as needed for Pain (scale 7-10) or Other (headache) . butalbital- Yes [id number] 1{tbl} Take 1 [facility] acetaminoph 1-22 tablet by ity of en-caff 00:00: mouth [place] 50-325-40 00 every 6 Medical mg tablet (six) Branch hours as needed for Pain (scale 7-10) or Other (headache) . butalbital- Yes [id number] 1{tbl} Take 1 [facility] acetaminoph 1-22 tablet by ity of en-caff 00:00: mouth [place] 50-325-40 00 every 6 Medical mg tablet (six) Branch hours as needed for Pain (scale 7-10) or Other (headache) . butalbital- Yes [id number] 1{tbl} Take 1 [facility] acetaminoph 1-22 tablet by ity of en-caff 00:00: mouth [place] 50-325-40 00 every 6 Medical mg tablet (six) Branch hours as needed for Pain (scale 7-10) or Other (headache) . butalbital- Yes [id number] 1{tbl} Take 1 [facility] acetaminoph 1-22 tablet by ity of en-caff 00:00: mouth [place] 50-325-40 00 every 6 Medical mg tablet (six) Branch hours as needed for Pain (scale 7-10) or Other (headache) . butalbital- Yes [id number] 1{tbl} Take 1 [facility] acetaminoph 1-22 tablet by ity of en-caff 00:00: mouth [place] 50-325-40 00 every 6 Medical mg tablet (six) Branch hours as needed for Pain (scale 7-10) or Other (headache) . butalbital- Yes [id number] 1{tbl} Take 1 [facility] acetaminoph 1-22 tablet by ity of en-caff 00:00: mouth [place] 50-325-40 00 every 6 Medical mg tablet (six) Branch hours as needed for Pain (scale 7-10) or Other (headache) . butalbital- Yes [id number] 1{tbl} Take 1 [facility] acetaminoph 1-22 tablet by ity of en-caff 00:00: mouth [place] 50-325-40 00 every 6 Medical mg tablet (six) Branch hours as needed for Pain (scale 7-10) or Other (headache) . butalbital Yes [id number] 1{tbl} Take 1 [facility] acetaminoph 1-22 tablet by ity of en-caff 00:00: mouth [place] 50-325-40 00 every 6 Medical mg tablet (six) Branch hours as needed for Pain (scale 7-10) or Other (headache) . butalbital- Yes [id number] 1{tbl} Take 1 [facility] acetaminoph 1-22 tablet by ity of en-caff 00:00: mouth [place] 50-325-40 00 every 6 Medical mg tablet (six) Branch hours as needed for Pain (scale 7-10) or Other (headache) . butalbital Yes [id number] 1{tbl} Take 1 [facility] acetaminoph 1-22 tablet by ity of en-caff 00:00: mouth [place] 50-325-40 00 every 6 Medical mg tablet (six) Branch hours as needed for Pain (scale 7-10) or Other (headache) . butalbital- Yes [id number] 1{tbl} Take 1 [facility] acetaminoph 1-22 tablet by ity of en-caff 00:00: mouth [place] 50-325-40 00 every 6 Medical mg tablet (six) Branch hours as needed for Pain (scale 7-10) or Other (headache) . butalbital- 2020- No [id number] 1{tbl} Take 1 [facility] acetaminoph 05-06 04-05 tablet by it y of en-caff 00:00: 00:00 mouth [place] 50-325-40 00 :00 every 6 Medical mg tablet (six) Branch hours as needed for Pain (scale 7-10) or Other (headache) . butalbital- 2020- No [id number] 1{tbl} Take 1 [facility] acetaminoph 05-06-05 tablet by it y of en-caff 00:00: [...] Indication s: acute pain erythromyci 2019-04- No [id number] .5[in_u Place 0.5 Univers n 5 mg/gram 05-27 [id number] s] Inches in ity of (0.5 %) [...] 20 MG 00:00: 20 MG 00 LOSARTAN 2019-04 Yes 100mg Take 100 Univ [...] 10 (two) Medical times Branch daily. LOSARTAN 2019-04 Yes 100mg Take 100 Univ [...] [place] ORAL) 10 daily. Medical Branch gabapentin 2019- Yes 300mg Take 300 Un you (NEURONTIN) [...] Branch at 0845, Routine amLODIPine 2019- Yes [id number] 10mg Take 1 [facility] 10 mg 0-26 tablet by ity of tablet 00:00: mouth [place] 00 daily. Medical Branch hydrALAZINE 2019- Yes [id number] 50mg Take 1 [facility] 50 mg 0-26 tablet by ity of tablet 00:00: mouth [place] 00 every 8 Medical (eight) Branch hours. aspirin 81 2020-1 Yes [id number] 81mg Take 1 [facility] mg chewable 0-26 tablet by ity of tablet 00:00: mouth [place] 00 daily. Medical Branch amLODIPine 2020-1 Yes [id number] 10mg Take 1 [facility] 10 mg 0-26 tablet by ity of tablet 00:00: mouth [place] 00 daily. Medical Branch hydrALAZINE 2019- Yes [id number] 50mg Take 1 [facility] 50 mg 0-26 tablet by ity of tablet 00:00: mouth [place] 00 every 8 Medical (eight) Branch hours. aspirin 81 2019-1 Yes [id number] 81mg Take 1 [facility] mg chewable 0-26 tablet by ity of tablet 00:00: mouth [place] 00 daily. Medical Branch amLODIPine 2019- Yes [id number] 10mg Take 1 [facility] 10 mg 0-26 tablet by ity of tablet 00:00: mouth [place] 00 daily. Medical Branch hydrALAZINE 2019- Yes [id number] 50mg Take 1 [facility] 50 mg 0-26 tablet by ity of tablet 00:00: mouth [place] 00 every 8 Medical (eight) Branch hours. aspirin 81 1 Yes [id number] 81mg Take 1 [facility] mg chewable 0-26 tablet by ity of tablet 00:00: mouth [place] 00 daily. Medical Branch amLODIPine 2019- Yes [id number] 10mg Take 1 [facility] 10 mg 0-26 tablet by ity of tablet 00:00: mouth [place] 00 daily. Medical Branch hydrALAZINE 2019- Yes [id number] 50mg Take 1 [facility] 50 mg 0-26 tablet by ity of tablet 00:00: mouth [place] 00 every 8 Medical (eight) Branch hours. aspirin 81 2019-1 Yes [id number] 81mg Take 1 [facility] mg chewable 0-26 tablet by ity of tablet 00:00: mouth [place] 00 daily. Medical Branch amLODIPine 2019- Yes [id number] 10mg Take 1 [facility] 10 mg 0-26 tablet by ity of tablet 00:00: mouth [place] 00 daily. Medical Branch hydrALAZINE 2019- Yes [id number] 50mg Take 1 [facility] 50 mg 0-26 tablet by ity of tablet 00:00: mouth [place] 00 every 8 Medical (eight) Branch hours. aspirin 81 2019- Yes [id number] 81mg Take 1 [facility] mg chewable 0-26 tablet by ity of tablet 00:00: mouth [place] 00 daily. Medical Branch amLODIPine 2020-1 Yes [id number] 10mg Take 1 [facility] 10 mg 0-26 tablet by ity of tablet 00:00: mouth [place] 00 daily. Medical Branch hydrALAZINE 2020- Yes [id number] 50mg Take 1 [facility] 50 mg 0-26 tablet by ity of tablet 00:00: mouth [place] 00 every 8 Medical (eight) Branch hours. aspirin 81 2019- Yes [id number] 81mg Take 1 [facility] mg chewable 0-26 tablet by ity of tablet 00:00: mouth [place] 00 daily. Medical Branch amLODIPine 2019-04 Yes [id number] 10mg Take 1 [facility] 10 mg 0-26 tablet by ity of tablet 00:00: mouth [place] 00 daily. Medical Branch hydrALAZINE 2019- Yes [id number] 50mg Take 1 [facility] 50 mg 0-26 tablet by ity of tablet 00:00: mouth [place] 00 every 8 Medical (eight) Branch hours. aspirin 81 2019-04 Yes [id number] 81mg Take 1 [facility] mg chewable 0-26 tablet by ity of tablet 00:00: mouth [place] 00 daily. Medical Branch amLODIPine 2019-04 Yes [id number] 10mg Take 1 [facility] 10 mg 0-26 tablet by ity of tablet 00:00: mouth [place] 00 daily. Medical Branch hydrALAZINE 2019- Yes [id number] 50mg Take 1 [facility] 50 mg 0-26 tablet by ity of tablet 00:00: mouth [place] 00 every 8 Medical (eight) Branch hours. aspirin 81 2019- Yes [id number] 81mg Take 1 [facility] mg chewable 0-26 tablet by ity of tablet 00:00: mouth [place] 00 daily. Medical Branch amLODIPine 2019- Yes [id number] 10mg Take 1 [facility] 10 mg 0-26 tablet by ity of tablet 00:00: mouth [place] 00 daily. Medical Branch hydrALAZINE 2019- Yes [id number] 50mg Take 1 [facility] 50 mg 0-26 tablet by ity of tablet 00:00: mouth [place] 00 every 8 Medical (eight) Branch hours. aspirin 81 2019- Yes [id number] 81mg Take 1 [facility] mg chewable 0-26 tablet by ity of tablet 00:00: mouth [place] 00 daily. Medical Branch amLODIPine 2019- Yes [id number] 10mg Take 1 [facility] 10 mg 0-26 tablet by ity of tablet 00:00: mouth [place] 00 daily. Medical Branch hydrALAZINE 2019- Yes [id number] 50mg Take 1 [facility] 50 mg 0-26 tablet by ity of tablet 00:00: mouth [place] 00 every 8 Medical (eight) Branch hours. aspirin 81 2019-04 Yes [id number] 81mg Take 1 [facility] mg chewable 0-26 tablet by ity of tablet 00:00: mouth [place] 00 daily. Medical Branch amLODIPine 2019-04 Yes [id number] 10mg Take 1 [facility] 10 mg 0-26 tablet by ity of tablet 00:00: mouth [place] 00 daily. Medical Branch hydrALAZINE 2019-04 Yes [id number] 50mg Take 1 [facility] 50 mg 0-26 tablet by ity of tablet 00:00: mouth [place] 00 every 8 Medical (eight) Branch hours. aspirin 81 2019-04 Yes [id number] 81mg Take 1 [facility] mg chewable 0-26 tablet by ity of tablet 00:00: mouth [place] 00 daily. Medical Branch amLODIPine 2019-04 Yes [id number] 10mg Take 1 [facility] 10 mg 0-26 tablet by ity of tablet 00:00: mouth [place] 00 daily. Medical Branch hydrALAZINE 2019-04 Yes [id number] 50mg Take 1 [facility] 50 mg 0-26 tablet by ity of tablet 00:00: mouth [place] 00 every 8 Medical (eight) Branch hours. aspirin 81 2019-04 Yes [id number] 81mg Take 1 [facility] mg chewable 0-26 tablet by ity of tablet 00:00: mouth [place] 00 daily. Medical Branch amLODIPine 2019-04 Yes [id number] 10mg Take 1 [facility] 10 mg 0-26 tablet by ity of tablet 00:00: mouth [place] 00 daily. Medical Branch hydrALAZINE 2019-04 Yes [id number] 50mg Take 1 [facility] 50 mg 0-26 tablet by ity of tablet 00:00: mouth [place] 00 every 8 Medical (eight) Branch hours. aspirin 81 2019-04 Yes [id number] 81mg Take 1 [facility] mg chewable 0-26 tablet by ity of tablet 00:00: mouth [place] 00 daily. Medical Branch amLODIPine 2019-04 Yes [id number] 10mg Take 1 [facility] 10 mg 0-26 tablet by ity of tablet 00:00: mouth [place] 00 daily. Medical Branch hydrALAZINE 2019- Yes [id number] 50mg Take 1 [facility] 50 mg 0-26 tablet by ity of tablet 00:00: mouth [place] 00 every 8 Medical (eight) Branch hours. aspirin 81 2019-04 Yes [id number] 81mg Take 1 [facility] mg chewable 0-26 tablet by ity of tablet 00:00: mouth [place] 00 daily. Medical Branch amLODIPine 2019-04 Yes [id number] 10mg Take 1 [facility] 10 mg 0-26 tablet by ity of tablet 00:00: mouth [place] 00 daily. Medical Branch hydrALAZINE 2019-04 Yes [id number] 50mg Take 1 [facility] 50 mg 0-26 tablet by ity of tablet 00:00: mouth [place] 00 every 8 Medical (eight) Branch hours. aspirin 81 2019-04 Yes [id number] 81mg Take 1 [facility] mg chewable 0-26 tablet by ity of tablet 00:00: mouth [place] 00 daily. Medical Branch amLODIPine 2019-04 Yes [id number] 10mg Take 1 [facility] 10 mg 0-26 tablet by ity of tablet 00:00: mouth [place] 00 daily. Medical Branch hydrALAZINE 2019-04 Yes [id number] 50mg Take 1 [facility] 50 mg 0-26 tablet by ity of tablet 00:00: mouth [place] 00 every 8 Medical (eight) Branch hours. aspirin 81 2019-04 Yes [id number] 81mg Take 1 [facility] mg chewable 0-26 tablet by ity of tablet 00:00: mouth [place] 00 daily. Medical Branch amLODIPine 2019-04 Yes [id number] 10mg Take 1 [facility] 10 mg 0-26 tablet by ity of tablet 00:00: mouth [place] 00 daily. Medical Branch hydrALAZINE 2019-04 Yes [id number] 50mg Take 1 [facility] 50 mg 0-26 tablet by ity of tablet 00:00: mouth [place] 00 every 8 Medical (eight) Branch hours. aspirin 81 2019-04 Yes [id number] 81mg Take 1 [facility] mg chewable 0-26 tablet by ity of tablet 00:00: mouth [place] 00 daily. Medical Branch amLODIPine 2019-04 Yes [id number] 10mg Take 1 [facility] 10 mg 0-26 tablet by ity of tablet 00:00: mouth [place] 00 daily. Medical Branch hydrALAZINE 2019-04 Yes [id number] 50mg Take 1 [facility] 50 mg 0-26 tablet by ity of tablet 00:00: mouth [place] 00 every 8 Medical (eight) Branch hours. aspirin 81 2019-04 Yes [id number] 81mg Take 1 [facility] mg chewable 0-26 tablet by ity of tablet 00:00: mouth [place] 00 daily. Medical Branch amLODIPine 2019-04- No [id number] 10mg Take 1 [facility] 10 mg 0-26 04-05 tablet by ity of tablet 00:00: 00:00 mouth [place] 00 :00 daily. Medical Branch hydrALAZINE 2019-04- No [id number] 50mg Take 1 [facility] 50 mg 0-26 04-05 tablet by ity of tablet 00:00: 00:00 mouth [place] 00 :00 every 8 Medical (eight) Branch hours. aspirin 81 2019-04- No [id number] 81mg Take 1 [facility] mg chewable 0-26 04-05 tablet by it y of tablet 00:00: 00:00 mouth [place] 00 :00 daily. Medical Branch amLODIPine 2019-04- No [id number] 10mg Take 1 [facility] 10 mg 0-26 04-05 tablet by ity of tablet 00:00: 00:00 mouth [place] 00 :00 daily. Medical Branch hydrALAZINE 2019-04- No [id number] 50mg Take 1 [facility] 50 mg 0-26 04-05 tablet by ity of tablet 00:00: 00:00 mouth [place] 00 :00 every 8 Medical (eight) Branch hours. aspirin 81 2019-04- No [id number] 81mg Take 1 [facility] mg chewable 0-26 [...] No 10mg 10 mg, Uni vers (APRESOLINE 0- 10-24 Oral, Q8H it y of ) tablet 10 17:45: 16:25 ABX, First [place] mg 00 :04 dose Medical (after Branch last modificati on) on 02/05/20 at 1245, Until Discontinu ed, Routine LORazepam 2019-04- No 1mg 1 mg, Slow U nivers (ATIVAN) 0- 10-24 IV Push, ity of injection 1 17:00: 02:13 ONCE, 1 [place] mg 00 :00 dose, [facility] 02/05/20 Branch at 1200, Routine lipase-prot 2019-04 Yes 3{capsu 3 capsule, Univers ease-amylas 0-23 le} Oral, TID ity of e (CREON) 14:00: MEALS, [place] 12,000-38,0 00 First dose Me dical 00 -60,000 on [facility] Branch unit 02/05/20 capsule 3 at 0900, capsule Until Discontinu ed, Routine ondansetron 2019-04- No 4mg 4 mg, Univ ers (ZOFRAN) 0- 10- Oral, ity of tablet 4 mg 22:30: 22:42 ONCE, 1 [place] 00 :[place] dose, [facility] 02/04/20 Branch at 1730, Routine ondansetron 2019-04 Yes 4mg 4 mg, Unive rs (ZOFRAN) 0-22 Oral, ity of tablet 4 mg 21:25: Q6HPRN, [place] 39 Starting Medical [facility] Branch 02/04/20 at 1625, Until Discontinu ed, Routine, Nausea and Vomiting (N/V) ondansetron 2019-04- No 4mg 4 mg, Slow Univers (ZOFRAN 0- 10-22 IV Push, ity of (PF)) 15:15: 21:26 Q8HPRN, [place] injection 4 54 :52 Starting Medi brandy mg [facility] Branch 02/04/20 at 1015, Until [facility] 02/04/20 at 1626, Routine, Nausea and Vomiting (N/V) LORazepam 2019-04 2020- No 1mg 1 mg, Univer s (ATIVAN) 0-22 10- Oral, ity of tablet 1 mg 14:30: 23:16 ONCE, 1 [place] 00 :00 dose, [facility] 02/04/20 Branch at 0930, Routine enoxaparin 2019-04 Yes 40mg 40 mg, Unive rs (LOVENOX) 0-22 Subcutaneo ity of injection 14:00: us, DAILY, [place] 40 mg 00 First dose Medical on [facility] 02/04/20 at 0900, Until Discontinu ed, Routine divalproex 2019-04 Yes 500mg 500 mg, Uni vers (DEPAKOTE) 0-22 Oral, ity of EC tablet 14:00: DAILY, [place] 500 mg 00 First dose Medical on [facility] 02/04/20 at 0900, Until Discontinu ed, Routine pantoprazol 2019-04 Yes 40mg 40 mg, Univ ers e 0-22 Oral, BID, ity of (PROTONIX) 13:00: First dose [place] EC tablet 00 on [facility] 40 mg 02/04/20 Branch at 0800, Until Discontinu ed, Routine lactulose 2019-04 Yes 15mL 15 mL, Univer s (CEPHULAC) 0-22 Oral, BID, ity of solution 15 13:00: First dose [place] mL 00 (after Medical last Branch modificati on) on [facility] 02/04/20 at 0800, Until Discontinu ed, Routine traMADoL 2019-04 Yes 50mg 50 mg, Univers (ULTRAM) 0- Oral, ity of tablet 50 03:22: Q8HPRN, [place] mg 09 Starting [facility] 02/03/20 at 2222, Until Discontinu ed, Routine, Pain (scale 4-6) lactated 2019-04 2020- No 1000mL at 100 Univ ers ringers IV 0-22 10-25 mL/hr, ity of infusion 02:15: 23:20 1,000 mL, [place] 1,000 mL 00 :45 IV Medical Infusion, Branch CONTINUOUS , Starting [facility] 02/03/20 at 2115, Until 02/07/20 at 1820, Routine docusate 2019-04 Yes 100mg 100 mg, Unive rs (COLACE) 0-22 Oral, ity of capsule 100 02:01: BIDPRN, [place] mg 06 Starting [facility] 02/03/20 at 2101, Until Discontinu ed, Routine, Constipati on acetaminoph 2019-04 Yes 650mg 650 mg, Un you en 0 Oral, ity of (TYLENOL) 01:58: Q8HPRN, [place] tablet 650 47 Starting Medic al mg [facility] 02/03/20 at 2058, Until Discontinu ed, Routine, Pain (scale 1-3) ondansetron 2019-04- No 4mg 4 mg, Univ ers (ZOFRAN) 002-03 Oral, ity of tablet 4 mg 01:52: 21:19 Q8HPRN, [place] 29 :27 Starting Medical [facility] 02/03/20 at 205, Until [place] 02/04/20 at 1619, Routine, Nausea and Vomiting (N/V) sennosides 2019-04 Yes 8.6mg 8.6 mg, Uni vers (SENOKOT) Oral, ity of tablet 8.6 16:30: DAILY, [place] mg 00 First dose Medical on [facility] 02/03/20 at 1130, Until Discontinu ed, Routine magnesium 2019-04 Yes 400mg 400 mg, Univ ers oxide Oral, ity of (MAG-OX 16:30: DAILY, [place] 400) tablet 00 First dose Me dical 400 mg on [facility] 02/03/20 at 1130, Until Discontinu ed, Routine docusate 2019-04- No 100mg 100 mg, Univ ers (COLACE) 02-03 Oral, ity of capsule 100 16:30: 02:14 DAILY, [place] mg 00 :35 First dose Medical on [facility] 02/03/20 at 1130, Until Discontinu ed, Routine lactulose 2019-04- No 15mL 15 mL, Unive rs (CEPHULAC) 002-02 Oral, QID, it y of solution 15 03:30: 21:01 First dose [place] mL 00 :02 on [facility] 02/02/20 [place] at 2230, Until Discontinu ed, Routine amLODIPine 2019-04 Yes 10mg 10 mg, Unive rs (NORVASC) 0 Oral, ity of tablet 10 22:30: DAILY, [place] mg 00 First dose Medical on [facility] 02/02/20 at 1730, Until Discontinu [...] [place] mg 00 First dose Medical on [facility] 02/02/20 at 1415, Until Discontinu ed, Routine lipase-prot 2019-04 2020- No 1{capsu 1 capsule, Univers ease-amylas 0-20 10-23 le} Oral, TID it y of e 19:15: 13:49 MEALS, [place] (PANCREAZE) 00 :19 First dose Me dical 16,800-56,8 on [facility] Branch 00- 98,400 02/02/20 unit at [...] as mg 00 :00 dose, [facility] Medical 02/02/20 Branch at 0100, Routine D5W 0.45% 2019-04- No 1000mL at 150 Uni vers NaCl 0-20 10-20 mL/hr, ity of (1/2NS) IV 00:15: 19:02 1,000 mL, [place] infusion 00 :15 IV Medical 1,000 mL Infusion, Branch CONTINUOUS , Starting Sat02/01/20 at 1915, Until Sat02/02/20 at 1402, Routine vancomycin 2019-04- No 15mg/kg 1,250 mg Univers 1250 mg in 20 (rounded ity of NS 250 mL 00:15: [...] 10 mg 41 Q4HPRN, Medical Starting Branch [facility] 02/01/20 at 1545, Until Discontinu ed, STAT, SBP > 180, DBP > 120
Ind ication: Hypertensi ve Emergency NaCl 0.45% 2019-04- No 1000mL at 150 Un you (1/2NS) IV 0-19 10-20 mL/hr, ity of infusion 18:45: 06:44 1,000 mL, [place] 1,000 mL 00 :00 IV Medical Infusion, Branch ONCE, 1 dose, [facility] 02/01/20 at 1345, Routine cyanocobala 2019-04- No [...] 1030, Until Sat02/01/20 at 1238, Routine enoxaparin 2019-04- No 30mg 30 mg, Univ ers (LOVENOX) 0-02-03 Subcutaneo ity of injection 14:00: 02:09 us, DAILY, [place] 30 mg 00 :34 First dose Medical on Sat [place] 02/01/20 at 0900, Until Discontinu ed, Routine NaCl 0.9% 2019-04- No 2000mL at 125 Uni vers (NS) IV 0-19 10-19 mL/hr, IV ity of infusion 03:30: 03:17 Infusion, [place] 2,000 mL 00 :00 ONCE, 1 Medical dose, [facility] 01/31/20 at 2230, Routine thiamine 2019-04- No 100mg IV Univers (VITAMIN 0-01-31 Piggyback, ity of B1) 100 mg 22:30: 14:59 DAILY, 2 [place] in NaCl 00 :00 doses, Medical 0.9% (NS) First dose Bran ch piggyback on [place] 01/31/20 at 1730, Last dose on Sat02/01/20 at 0900, 50 mL lactated 2019-04- No 1000mL at 125 Univ ers ringers IV 0-18 10-19 mL/hr, ity of infusion 22:30: 02:29 1,000 mL, [place] 1,000 mL 00 :41 IV Medical Infusion, Branch CONTINUOUS , Starting [place] 01/31/20 at 1730, Until [place] 01/31/20 at 2129, Routine NaCl 0.9% 2019-04- No 30mL/kg at 999 Un you (NS) bolus 0-18 10-18 mL/hr, ity of infusion 15:45: 16:04 2,730 mL [place] 2,730 mL 00 :00 (30 mL/kg Medica l ?91 kg), Branch IV Infusion, ONCE, 1 dose, [place] 01/31/20 at 1045, [place] Sucralfate Sucralfate 2020-0 No 1{table Sucralfate 1 GM 1 GM 9-23 t_on_an 1 GM 00:00: _empty_ 00 stomach } Sucralfate Sucralfate 2020-0 No 1{table Sucralfate 1 GM 1 GM 9-23 t_on_an 1 GM 00:00: _empty_ 00 stomach } Sucralfate Sucralfate 2020-0 No 1{table Sucralfate 1 GM 1 GM 9-23 t_on_an 1 GM 00:00: _empty_ 00 stomach } haloperidol 2019-0 2020- No 2.5mg 2.5 mg, [...] :00 ONCE, 1 Medical 50 mcg dose, [facility] 12/18/19 at 1845, Routine iohexol 2019-2019- No 120mL 120 mL, Unive rs (OMNIPAQUE 12-17 Intravenou it y of 350 22:01: 22:02 s, ONCE, 1 [place] BULK-100 00 :00 dose, Fri Medica l mL) 12/18/19 at [place] injection 1715, 120 mL Routine proMETHazin 2019-0 2020- No 25mg 25 mg, IV Univers e 12-17 Piggyback, ity of (PHENERGAN) 21:30: 20:40 ONCE, 1 [place] 25 mg in 00 :00 dose, Fri Medica l NaCl 0.9% 12/18/19 at [facility] h (NS) 50 mL 1630, 50 piggyback mL proMETHazin 2020-0 Yes [id number] 25mg Insert 1 Univers e 12-17 Suppositor ity of (PHENERGAN) 00:00: y [place] 25 mg 00 rectum Medical suppository every 4 Branc h (four) hours as needed for Nausea and Vomiting (N/V). proMETHazin 2020-0 Yes [id number] 25mg Insert 1 Univers e 9-04 Suppositor ity of (PHENERGAN) 00:00: y [place] 25 mg 00 rectum Medical suppository every 4 Branc h (four) hours as needed for Nausea and Vomiting (N/V). proMETHazin 2020-0 Yes [id number] 25mg Insert 1 Univers e 9-04 Suppositor ity of (PHENERGAN) 00:00: y into [place] 25 mg 00 rectum Medical suppository every 4 Branc h (four) hours as needed for Nausea and Vomiting (N/V). proMETHazin 2020-0 Yes [id number] 25mg Insert 1 Univers e 9-04 Suppositor ity of (PHENERGAN) 00:00: y into [place] 25 mg 00 rectum Medical suppository every 4 Branc h (four) hours as needed for Nausea and Vomiting (N/V). proMETHazin 2020-0 Yes [id number] 25mg Insert 1 Univers e 9-04 Suppositor ity of (PHENERGAN) 00:00: y into [place] 25 mg 00 rectum Medical suppository every 4 Branc h (four) hours as needed for Nausea and Vomiting (N/V). proMETHazin 2020-0 Yes [id number] 25mg Insert 1 Univers e 9-04 Suppositor ity of (PHENERGAN) 00:00: y into [place] 25 mg 00 rectum Medical suppository every 4 Branc h (four) hours as needed for Nausea and Vomiting (N/V). proMETHazin 2020-0 Yes [id number] 25mg Insert 1 Univers e 9-04 Suppositor ity of (PHENERGAN) 00:00: y into [place] 25 mg 00 rectum Medical suppository every 4 Branc h (four) hours as needed for Nausea and Vomiting (N/V). proMETHazin 2020-0 Yes [id number] 25mg Insert 1 Univers e 9-04 Suppositor ity of (PHENERGAN) 00:00: y into [place] 25 mg 00 rectum Medical suppository every 4 Branc h (four) hours as needed for Nausea and Vomiting (N/V). proMETHazin 2020-0 Yes [id number] 25mg Insert 1 Univers e 9-04 Suppositor ity of (PHENERGAN) 00:00: y into [place] 25 mg 00 rectum Medical suppository every 4 Branc h (four) hours as needed for Nausea and Vomiting (N/V). proMETHazin 2020-0 Yes [id number] 25mg Insert 1 Univers e 9-04 Suppositor ity of (PHENERGAN) 00:00: y into [place] 25 mg 00 rectum Medical suppository every 4 Branc h (four) hours as needed for Nausea and Vomiting (N/V). proMETHazin 2020-0 Yes [id number] 25mg Insert 1 Univers e 9-04 Suppositor ity of (PHENERGAN) 00:00: y into [place] 25 mg 00 rectum Medical suppository every 4 Branc h (four) hours as needed for Nausea and Vomiting (N/V). proMETHazin 2020-0 Yes [id number] 25mg Insert 1 Univers e 9-04 Suppositor ity of (PHENERGAN) 00:00: y into [place] 25 mg 00 rectum Medical suppository every 4 Branc h (four) hours as needed for Nausea and Vomiting (N/V). proMETHazin 2020-0 Yes [id number] 25mg Insert 1 Univers e 9-04 Suppositor ity of (PHENERGAN) 00:00: y into [place] 25 mg 00 rectum Medical suppository every 4 Branc h (four) hours as needed for Nausea and Vomiting (N/V). proMETHazin 2020-0 Yes [id number] 25mg Insert 1 Univers e 9-04 Suppositor ity of (PHENERGAN) 00:00: y into [place] 25 mg 00 rectum Medical suppository every 4 Branc h (four) hours as needed for Nausea and Vomiting (N/V). proMETHazin 2020-0 Yes [id number] 25mg Insert 1 Univers e 9-04 Suppositor ity of (PHENERGAN) 00:00: y into [place] 25 mg 00 rectum Medical suppository every 4 Branc h (four) hours as needed for Nausea and Vomiting (N/V). proMETHazin 2020-0 Yes [id number] 25mg Insert 1 Univers e 9-04 Suppositor ity of (PHENERGAN) 00:00: y into [place] 25 mg 00 rectum Medical suppository every 4 Branc h (four) hours as needed for Nausea and Vomiting (N/V). proMETHazin 2020-0 Yes [id number] 25mg Insert 1 Univers e 904 Suppositor ity of (PHENERGAN) 00:00: y into [place] 25 mg 00 rectum Medical suppository every 4 Branc h (four) hours as needed for Nausea and Vomiting (N/V). proMETHazin 2020-0 Yes [id number] 25mg Insert 1 Univers e 9 Suppositor ity of (PHENERGAN) 00:00: y into [place] 25 mg 00 rectum Medical suppository every 4 Branc h (four) hours as needed for Nausea and Vomiting (N/V). proMETHazin 2020-0 Yes [id number] 25mg Insert 1 Univers e 12-17 Suppositor ity of (PHENERGAN) 00:00: y into [place] 25 mg 00 rectum Medical suppository every 4 Branc h (four) hours as needed for Nausea and Vomiting (N/V). proMETHazin 2019-0 2020- No [id number] 25mg Insert 1 Univers e 12-17-05 Suppositor ity of (PHENERGAN) 00:00: 00:00 y into [place] 25 mg 00 :00 rectum Medical suppository every 4 Branc h (four) hours as needed for Nausea and Vomiting (N/V). proMETHazin 2020-0 2020- No [id number] 25mg Insert 1 Univers e 12-17-05 Suppositor ity of (PHENERGAN) 00:00: 00:00 y into [place] 25 mg 00 :00 rectum Medical suppository every 4 Branc h (four) hours as needed for Nausea and Vomiting (N/V). Chlorhexidi Chlorhexidi 2019- 2020- No [place] 15 ML Common ne ne 10-05 swish and Spirit Gluconate Gluconate 00:00: 00:00 spit - [facility] 00 :00 [facility] cloNIDine 2019-0 2020- No .2mg 0.2 mg, Univ ers (CATAPRES) 08-21 05-09 Oral, ity of tablet 0.2 05:00: 04:00 ONCE, 1 [place] mg 00 :00 dose, Sat Medical 08/22/19 at Branch 0000, STAT ondansetron 2020-0 2020- No 4mg 4 [...] at Branch 2315, Routine Nitrofurant 2020-0 Yes [id number] 100mg Take 1 Univers oin&Nit. 5-08 capsule by ity o f Macrocryst 00:00: mouth 2 [place] (MACROBID) 00 (two) Medical 100 mg times Branch capsule daily. benzonatate 2020-0 Yes [id number] 200mg Take 1 Univers 200 mg 5-08 capsule by ity of capsule 00:00: mouth 3 [place] 00 (three) Medical times Branch daily as needed for Cough. ondansetron 2020-0 Yes [id number] 4mg Take 1 Univers (ZOFRAN) 4 5-08 tablet by ity of mg tablet 00:00: mouth [place] 00 every 8 Medical (eight) Branch hours as needed for Nausea and Vomiting (N/V). traMADol 2020-0 Yes [id number] 50mg Take 1 Uni vers (ULTRAM) 50 5-08 tablet by ity of mg tablet 00:00: mouth [place] 00 every 6 Medical (six) Branch hours as needed for Pain (scale 7-10). albuterol 2020-0 Yes [id number] 2{puff} Inhale 2 Univers 90 5-08 Puffs ity of mcg/actuati 00:00: every 4 [place] inhaler 00 (four) Medical hours as Branch needed for Wheezing, Shortness of Breath, Bronchospa sm or Chest tightness. benzonatate 2020-0 Yes [id number] 200mg Take 1 Univers 200 mg 5-08 capsule by ity of capsule 00:00: mouth 3 [place] 00 (three) Medical times Branch daily as needed for Cough. ondansetron 2020-0 Yes [id number] 4mg Take 1 Univers (ZOFRAN) 4 5-08 tablet by ity of mg tablet 00:00: mouth [place] 00 every 8 Medical (eight) Branch hours as needed for Nausea and Vomiting (N/V). traMADol 2020-0 Yes [id number] 50mg Take 1 Uni vers (ULTRAM) 50 5-08 tablet by ity of mg tablet 00:00: mouth [place] 00 every 6 Medical (six) Branch hours as needed for Pain (scale 7-10). albuterol 2020-0 Yes [id number] 2{puff} Inhale 2 Univers 90 5-08 Puffs ity of mcg/actuati 00:00: every 4 [place] inhaler 00 (four) Medical hours as Branch needed for Wheezing, Shortness of Breath, Bronchospa sm or Chest tightness. benzonatate 2020-0 Yes [id number] 200mg Take 1 [facility] 200 mg 5-08 capsule by ity of capsule 00:00: mouth 3 [place] 00 (three) Medical times Branch daily as needed for Cough. ondansetron 2020-0 Yes [id number] 4mg Take 1 Univers (ZOFRAN) 4 5-08 tablet by ity of mg tablet 00:00: mouth [place] 00 every 8 Medical (eight) Branch hours as needed for Nausea and Vomiting (N/V). traMADol 2020-0 Yes [id number] 50mg Take 1 Uni vers (ULTRAM) 50 5-08 tablet by ity of mg tablet 00:00: mouth [place] 00 every 6 Medical (six) Branch hours as needed for Pain (scale 7-10). albuterol 2020-0 Yes [id number] 2{puff} Inhale 2 Univers 90 5-08 Puffs ity of mcg/actuati 00:00: every 4 [place] inhaler 00 (four) Medical hours as Branch needed for Wheezing, Shortness of Breath, Bronchospa sm or Chest tightness. benzonatate 2020-0 Yes [id number] 200mg Take 1 Univers 200 mg 5-08 capsule by ity of capsule 00:00: mouth 3 00 (three) Medical times Branch daily as needed for Cough. ondansetron 2020-0 Yes [id number] 4mg Take 1 Univers (ZOFRAN) 4 5-08 tablet by ity of mg tablet 00:00: mouth [place] 00 every 8 Medical (eight) Branch hours as needed for Nausea and Vomiting (N/V). traMADol 2020-0 Yes [id number] 50mg Take 1 Uni vers (ULTRAM) 50 5-08 tablet by ity of mg tablet 00:00: mouth [place] 00 every 6 Medical (six) Branch hours as needed for Pain (scale 7-10). albuterol 2020-0 Yes [id number] 2{puff} Inhale 2 Univers 90 5-08 Puffs ity of mcg/actuati 00:00: every 4 [place] inhaler 00 (four) Medical hours as Branch needed for Wheezing, Shortness of Breath, Bronchospa sm or Chest tightness. benzonatate 2020-0 Yes [id number] 200mg Take 1 [facility] 200 mg 5-08 capsule by ity of capsule 00:00: mouth 3 (three) Medical times Branch daily as needed for Cough. ondansetron 2020-0 Yes [id number] 4mg Take 1 Univers (ZOFRAN) 4 5-08 tablet by ity of mg tablet 00:00: mouth [place] 00 every 8 Medical (eight) Branch hours as needed for Nausea and Vomiting (N/V). traMADol 2020-0 Yes [id number] 50mg Take 1 Uni vers (ULTRAM) 50 5-08 tablet by ity of mg tablet 00:00: mouth [place] 00 every 6 Medical (six) Branch hours as needed for Pain (scale 7-10). albuterol 2020-0 Yes [id number] 2{puff} Inhale 2 Univers 90 5-08 Puffs ity of mcg/actuati 00:00: every 4 [place] inhaler 00 (four) Medical hours as Branch needed for Wheezing, Shortness of Breath, Bronchospa sm or Chest tightness. benzonatate 2020-0 Yes [id number] 200mg Take 1 [facility] 200 mg 5-08 capsule by ity of capsule 00:00: mouth 3 (three) Medical times Branch daily as needed for Cough. ondansetron 2020-0 Yes [id number] 4mg Take 1 [facility] (ZOFRAN) 4 5-08 tablet by ity of mg tablet 00:00: mouth [place] 00 every 8 Medical (eight) Branch hours as needed for Nausea and Vomiting (N/V). traMADol 2020-0 Yes [id number] 50mg Take 1 [facility] vers (ULTRAM) 50 5-08 tablet by ity of mg tablet 00:00: mouth [place] 00 every 6 Medical (six) Branch hours as needed for Pain (scale 7-10). albuterol 2020-0 Yes [id number] 2{puff} Inhale 2 [facility] 90 5-08 Puffs ity of mcg/actuati 00:00: every 4 [place] on inhaler 00 (four) Medical hours as Branch needed for Wheezing, Shortness of Breath, Bronchospa sm or Chest tightness. benzonatate 2020-0 Yes [id number] 200mg Take 1 [facility] 200 mg 5-08 capsule by ity of capsule 00:00: mouth 3 [place] 00 (three) Medical times Branch daily as needed for Cough. ondansetron 2020-0 Yes [id number] 4mg Take 1 [facility] (ZOFRAN) 4 5-08 tablet by ity of mg tablet 00:00: mouth [place] 00 every 8 Medical (eight) Branch hours as needed for Nausea and Vomiting (N/V). traMADol 2020-0 Yes [id number] 50mg Take 1 [facility] vers (ULTRAM) 50 5-08 tablet by ity of mg tablet 00:00: mouth [place] 00 every 6 Medical (six) Branch hours as needed for Pain (scale 7-10). albuterol 2020-0 Yes [id number] 2{puff} Inhale 2 [facility] 90 5-08 Puffs ity of mcg/actuati 00:00: every 4 [place] on inhaler 00 (four) Medical hours as Branch needed for Wheezing, Shortness of Breath, Bronchospa sm or Chest tightness. benzonatate 2020-0 Yes [id number] 200mg Take 1 [facility] 200 mg 5-08 capsule by ity of capsule 00:00: mouth 3 [place] 00 (three) Medical times Branch daily as needed for Cough. ondansetron 2020-0 Yes [id number] 4mg Take 1 [facility] (ZOFRAN) 4 5-08 tablet by ity of mg tablet 00:00: mouth [place] 00 every 8 Medical (eight) Branch hours as needed for Nausea and Vomiting (N/V). traMADol 2020-0 Yes [id number] 50mg Take 1 [facility] (ULTRAM) 50 5-08 tablet by ity of mg tablet 00:00: mouth [place] 00 every 6 Medical (six) Branch hours as needed for Pain (scale 7-10). albuterol 2020-0 Yes [id number] 2{puff} Inhale 2 [facility] 90 5-08 Puffs ity of mcg/actuati 00:00: every 4 [place] on inhaler 00 (four) Medical hours as Branch needed for Wheezing, Shortness of Breath, Bronchospa sm or Chest tightness. benzonatate 2020-0 Yes [id number] 200mg Take 1 [facility] 200 mg 5-08 capsule by ity of capsule 00:00: mouth 3 [place] 00 (three) Medical times Branch daily as needed for Cough. ondansetron 2020-0 Yes [id number] 4mg Take 1 [facility] (ZOFRAN) 4 5-08 tablet by ity of mg tablet 00:00: mouth [place] 00 every 8 Medical (eight) Branch hours as needed for Nausea and Vomiting (N/V). traMADol 2020-0 Yes [id number] 50mg Take 1 [facility] (ULTRAM) 50 5-08 tablet by ity of mg tablet 00:00: mouth [place] 00 every 6 Medical (six) Branch hours as needed for Pain (scale 7-10). albuterol 2020-0 Yes [id number] 2{puff} Inhale 2 [facility] 90 5-08 Puffs ity of mcg/actuati 00:00: every 4 [place] on inhaler 00 (four) Medical hours as Branch needed for Wheezing, Shortness of Breath, Bronchospa sm or Chest tightness. benzonatate 2020-0 Yes [id number] 200mg Take 1 [facility] 200 mg 5-08 capsule by ity of capsule 00:00: mouth 3 [place] 00 (three) Medical times Branch daily as needed for Cough. ondansetron 2020-0 Yes [id number] 4mg Take 1 [facility] (ZOFRAN) 4 5-08 tablet by ity of mg tablet 00:00: mouth [place] 00 every 8 Medical (eight) Branch hours as needed for Nausea and Vomiting (N/V). traMADol 2020-0 Yes [id number] 50mg Take 1 [facility] (ULTRAM) 50 5-08 tablet by ity of mg tablet 00:00: mouth [place] 00 every 6 Medical (six) Branch hours as needed for Pain (scale 7-10). albuterol 2020-0 Yes [id number] 2{puff} Inhale 2 [facility] 90 5-08 Puffs ity of mcg/actuati 00:00: every 4 [place] on inhaler 00 (four) Medical hours as Branch needed for Wheezing, Shortness of Breath, Bronchospa sm or Chest tightness. benzonatate 2020-0 Yes [id number] 200mg Take 1 [facility] 200 mg 5-08 capsule by ity of capsule 00:00: mouth 3 [place] 00 (three) Medical times Branch daily as needed for Cough. ondansetron 2020-0 Yes [id number] 4mg Take 1 [facility] (ZOFRAN) 4 5-08 tablet by ity of mg tablet 00:00: mouth [place] 00 every 8 Medical (eight) Branch hours as needed for Nausea and Vomiting (N/V). traMADol 2020-0 Yes [id number] 50mg Take 1 [facility] (ULTRAM) 50 5-08 tablet by ity of mg tablet 00:00: mouth [place] 00 every 6 Medical (six) Branch hours as needed for Pain (scale 7-10). albuterol 2020-0 Yes [id number] 2{puff} Inhale 2 [facility] 90 5-08 Puffs ity of mcg/actuati 00:00: every 4 [place] on inhaler 00 (four) Medical hours as Branch needed for Wheezing, Shortness of Breath, Bronchospa sm or Chest tightness. benzonatate 2020-0 Yes [id number] 200mg Take 1 [facility] 200 mg 5-08 capsule by ity of capsule 00:00: mouth 3 [place] (three) Medical times Branch daily as needed for Cough. ondansetron 2020-0 Yes [id number] 4mg Take 1 [facility] (ZOFRAN) 4 5-08 tablet by ity of mg tablet 00:00: mouth [place] 00 every 8 Medical (eight) Branch hours as needed for Nausea and Vomiting (N/V). traMADol 2020-0 Yes [id number] 50mg Take 1 [facility] (ULTRAM) 50 5-08 tablet by ity of mg tablet 00:00: mouth [place] 00 every 6 Medical (six) Branch hours as needed for Pain (scale 7-10). albuterol 2020-0 Yes [id number] 2{puff} Inhale 2 [facility] 90 5-08 Puffs ity of mcg/actuati 00:00: every 4 [place] on inhaler 00 (four) Medical hours as Branch needed for Wheezing, Shortness of Breath, Bronchospa sm or Chest tightness. benzonatate 2020-0 Yes [id number] 200mg Take 1 [facility] 200 mg 5-08 capsule by ity of capsule 00:00: mouth 3 [place] 00 (three) Medical times Branch daily as needed for Cough. ondansetron 2020-0 Yes [id number] 4mg Take 1 [facility] (ZOFRAN) 4 5-08 tablet by ity of mg tablet 00:00: mouth [place] 00 every 8 Medical (eight) Branch hours as needed for Nausea and Vomiting (N/V). traMADol 2020-0 Yes [id number] 50mg Take 1 [facility] (ULTRAM) 50 5-08 tablet by ity of mg tablet 00:00: mouth [place] 00 every 6 Medical (six) Branch hours as needed for Pain (scale 7-10). albuterol 2020-0 Yes [id number] 2{puff} Inhale 2 [facility] 90 5-08 Puffs ity of mcg/actuati 00:00: every 4 [place] on inhaler 00 (four) Medical hours as Branch needed for Wheezing, Shortness of Breath, Bronchospa sm or Chest tightness. benzonatate 2020-0 Yes [id number] 200mg Take 1 [facility] 200 mg 5-08 capsule by ity of capsule 00:00: mouth 3 [place] 00 (three) Medical times Branch daily as needed for Cough. ondansetron 2020-0 Yes [id number] 4mg Take 1 [facility] (ZOFRAN) 4 5-08 tablet by ity of mg tablet 00:00: mouth [place] 00 every 8 Medical (eight) Branch hours as needed for Nausea and Vomiting (N/V). traMADol 2020-0 Yes [id number] 50mg Take 1 [facility] (ULTRAM) 50 5-08 tablet by ity of mg tablet 00:00: mouth [place] 00 every 6 Medical (six) Branch hours as needed for Pain (scale 7-10). albuterol 2020-0 Yes [id number] 2{puff} Inhale 2 [facility] 90 5-08 Puffs ity of mcg/actuati 00:00: every 4 [place] on inhaler 00 (four) Medical hours as Branch needed for Wheezing, Shortness of Breath, Bronchospa sm or Chest tightness. benzonatate 2020-0 Yes [id number] 200mg Take 1 [facility] 200 mg 5-08 capsule by ity of capsule 00:00: mouth 3 [place] 00 (three) Medical times Branch daily as needed for Cough. ondansetron 2020-0 Yes [id number] 4mg Take 1 [facility] (ZOFRAN) 4 5-08 tablet by ity of mg tablet 00:00: mouth [place] 00 every 8 Medical (eight) Branch hours as needed for Nausea and Vomiting (N/V). traMADol 2020-0 Yes [id number] 50mg Take 1 [facility] (ULTRAM) 50 5-08 tablet by ity of mg tablet 00:00: mouth [place] 00 every 6 Medical (six) Branch hours as needed for Pain (scale 7-10). albuterol 2020-0 Yes [id number] 2{puff} Inhale 2 [facility] 90 5-08 Puffs ity of mcg/actuati 00:00: every 4 [place] on inhaler 00 (four) Medical hours as Branch needed for Wheezing, Shortness of Breath, Bronchospa sm or Chest tightness. benzonatate 2020-0 Yes [id number] 200mg Take 1 [facility] 200 mg 5-08 capsule by ity of capsule 00:00: mouth 3 00 (three) Medical times Branch daily as needed for Cough. ondansetron 2020-0 Yes [id number] 4mg Take 1 [facility] (ZOFRAN) 4 5-08 tablet by ity of mg tablet 00:00: mouth [place] 00 every 8 Medical (eight) Branch hours as needed for Nausea and Vomiting (N/V). traMADol 2020-0 Yes [id number] 50mg Take 1 [facility] (ULTRAM) 50 5-08 tablet by ity of mg tablet 00:00: mouth [place] 00 every 6 Medical (six) Branch hours as needed for Pain (scale 7-10). albuterol 2020-0 Yes [id number] 2{puff} Inhale 2 [facility] 90 5-08 Puffs ity of mcg/actuati 00:00: every 4 [place] on inhaler 00 (four) Medical hours as Branch needed for Wheezing, Shortness of Breath, Bronchospa sm or Chest tightness. benzonatate 2020-0 Yes [id number] 200mg Take 1 [facility] 200 mg 5-08 capsule by ity of capsule 00:00: mouth 3 [place] 00 (three) Medical times Branch daily as needed for Cough. ondansetron 2020-0 Yes [id number] 4mg Take 1 [facility] (ZOFRAN) 4 5-08 tablet by ity of mg tablet 00:00: mouth [place] 00 every 8 Medical (eight) Branch hours as needed for Nausea and Vomiting (N/V). traMADol 2020-0 Yes [id number] 50mg Take 1 [facility] (ULTRAM) 50 5-08 tablet by ity of mg tablet 00:00: mouth [place] 00 every 6 Medical (six) Branch hours as needed for Pain (scale 7-10). albuterol 2020-0 Yes [id number] 2{puff} Inhale 2 [facility] 90 5-08 Puffs ity of mcg/actuati 00:00: every 4 [place] on inhaler 00 (four) Medical hours as Branch needed for Wheezing, Shortness of Breath, Bronchospa sm or Chest tightness. benzonatate 2020-0 Yes [id number] 200mg Take 1 [facility] 200 mg 5-08 capsule by ity of capsule 00:00: mouth (three) Medical times Branch daily as needed for Cough. ondansetron 2020-0 Yes [id number] 4mg Take 1 [facility] (ZOFRAN) 4 5-08 tablet by ity of mg tablet 00:00: mouth [place] 00 every 8 Medical (eight) Branch hours as needed for Nausea and Vomiting (N/V). traMADol 2020-0 Yes [id number] 50mg Take 1 [facility] (ULTRAM) 50 5-08 tablet by ity of mg tablet 00:00: mouth [place] 00 every 6 Medical (six) Branch hours as needed for Pain (scale 7-10). albuterol 2020-0 Yes [id number] 2{puff} Inhale 2 [facility] 90 5-08 Puffs ity of mcg/actuati 00:00: every 4 [place] on inhaler 00 (four) Medical hours as Branch needed for Wheezing, Shortness of Breath, Bronchospa sm or Chest tightness. benzonatate 2020-0 Yes [id number] 200mg Take 1 [facility] 200 mg 5-08 capsule by ity of capsule 00:00: mouth 3 (three) Medical times Branch daily as needed for Cough. ondansetron 2020-0 Yes [id number] 4mg Take 1 [facility] (ZOFRAN) 4 5-08 tablet by ity of mg tablet 00:00: mouth [place] 00 every 8 Medical (eight) Branch hours as needed for Nausea and Vomiting (N/V). traMADol 2020-0 Yes [id number] 50mg Take 1 [facility] (ULTRAM) 50 5-08 tablet by ity of mg tablet 00:00: mouth [place] 00 every 6 Medical (six) Branch hours as needed for Pain (scale 7-10). albuterol 2020-0 Yes [id number] 2{puff} Inhale 2 [facility] 90 5-08 Puffs ity of mcg/actuati 00:00: every 4 [place] on inhaler 00 (four) Medical hours as Branch needed for Wheezing, Shortness of Breath, Bronchospa sm or Chest tightness. ondansetron 2020-0 Yes [id number] 4mg Take 1 [facility] (ZOFRAN) 4 5-08 tablet by ity of mg tablet 00:00: mouth [place] 00 every 8 Medical (eight) Branch hours as needed for Nausea and Vomiting (N/V). ondansetron 2020-0 Yes [id number] 4mg Take 1 [facility] (ZOFRAN) 4 5-08 tablet by ity of mg tablet 00:00: mouth [place] 00 every 8 Medical (eight) Branch hours as needed for Nausea and Vomiting (N/V). ondansetron 2020-0 Yes [id number] 4mg Take 1 [facility] (ZOFRAN) 4 5-08 tablet by ity of mg tablet 00:00: mouth [place] 00 every 8 Medical (eight) Branch hours as needed for Nausea and Vomiting (N/V). ondansetron 2020-0 Yes [id number] 4mg Take 1 [facility] (ZOFRAN) 4 5-08 tablet by ity of mg tablet 00:00: mouth [place] 00 every 8 Medical (eight) Branch hours as needed for Nausea and Vomiting (N/V). Nitrofurant 2020-0 Yes [id number] 100mg Take 1 [facility] oin&Nit. 5-08 capsule by ity o f Macrocryst 00:00: mouth 2 [place] (MACROBID) 00 (two) Medical 100 mg times Branch capsule daily. benzonatate 2020-0 Yes [id number] 200mg Take 1 [facility] 200 mg 5-08 capsule by ity of capsule 00:00: mouth 3 [place] 00 (three) Medical times Branch daily as needed for Cough. ondansetron 2020-0 Yes [id number] 4mg Take 1 [facility] (ZOFRAN) 4 5-08 tablet by ity of mg tablet 00:00: mouth [place] 00 every 8 Medical (eight) Branch hours as needed for Nausea and Vomiting (N/V). traMADol 2020-0 Yes [id number] 50mg Take 1 [facility] (ULTRAM) 50 5-08 tablet by ity of mg tablet 00:00: mouth [place] 00 every 6 Medical (six) Branch hours as needed for Pain (scale 7-10). albuterol 2019-0 Yes [id number] 2{puff} Inhale 2 [facility] 90 5-08 Puffs ity of mcg/actuati 00:00: every 4 [place] on inhaler 00 (four) Medical hours as Branch needed for Wheezing, Shortness of Breath, Bronchospa sm or Chest tightness. ondansetron 2020- No [id number] 4mg Take 1 [facility] (ZOFRAN) 4 5-08 06-30 tablet by ity of mg tablet 00:00: 00:00 mouth [place] 00 :00 every 8 Medical (eight) Branch hours as needed for Nausea and Vomiting (N/V). benzonatate 2020- No [id number] 200mg Take 1 [facility] 200 mg 5-08 04-05 capsule by ity of capsule 00:00: 00:00 mouth 3 [place] 00 :00 (three) Medical times Branch daily as needed for Cough. traMADol 2020- No [id number] 50mg Take 1 [facility] you (ULTRAM) 50 5-08 04-05 tablet by it y of mg tablet 00:00: 00:00 mouth [place] 00 :00 every 6 Medical (six) Branch hours as needed for Pain (scale 7-10). albuterol 2020- No [id number] 2{puff} Inhale 2 [facility] 90 5-08 04-05 Puffs ity of mcg/actuati 00:00: 00:00 every 4 [place] on inhaler 00 :00 (four) Medical hours as Branch needed for Wheezing, Shortness of Breath, Bronchospa sm or Chest tightness. benzonatate 2019-2020- No [id number] 200mg Take 1 [facility] 200 mg 5-08 04-05 capsule by ity of capsule 00:00: 00:00 mouth 3 [place] 00 :00 (three) Medical times Branch daily as needed for Cough. traMADol 2020- No [id number] 50mg Take 1 Un you (ULTRAM) 50 08-20 04-05 tablet by it y of mg tablet 00:00: 00:00 mouth [place] 00 :00 every 6 Medical (six) Branch hours as needed for Pain (scale 7-10). albuterol 2020- No [id number] 2{puff} Inhale 2 [facility] 90 08 04-05 Puffs ity of mcg/actuati 00:00: 00:00 every 4 [place] on inhaler 00 :00 (four) Medical hours as Branch needed for Wheezing, Shortness of Breath, Bronchospa sm or Chest tightness. Nitrofurant 2019- No [id number] 100mg Take 1 [facility] oin&Nit. 08-20- capsule by ity of Macrocryst 00:00: 00:00 mouth 2 [place] (MACROBID) 00 :00 (two) Medical 100 mg times Branch capsule daily. HYDROcodone 2019- No 1{tbl} 1 tablet, Univers -acetaminop 06-25 Oral, ONCE i ty of hen (NORCO) 01:15: 00:22 NOW, 1 [place] 10-325 mg 00 :00 dose, [facility] Medic al tablet 1 06/25/19 at [facility] h tablet 2014, [place] dicyclomine Yes 20mg 20 mg, Univ ers (BENTYL) 06-25 Intramuscu ity o f injection 01:00: lar, QID, [place] as 20 mg 00 First dose Medical on [facility] 06/25/19 at 2000, Until Discontinu ed, [place] hydralAZINE 2019- No 20mg 20 mg, Uni vers (APRESOLINE 06-25 Intravenou i ty of ) injection 00:45: 00:10 [place], ONCE [place] 20 mg 00 :00 NOW, 1 Medical dose, [facility] 06/25/19 at 1945, [place] metoclopram 2019- No 10mg 10 mg, Uni vers selena HCl 06-24 Slow IV ity of (REGLAN) 23:45: 22:48 Push, [place] injection 00 :00 ONCE, 1 Medical 10 mg dose, Lilian [place] 06/25/19 at 1845, [place] ketorolac 2019-0 2020- No 30mg 30 mg, Unive rs (TORADOL) 06-24 Slow IV ity of injection 23:45: 22:49 Push, [place] 30 mg 00 :00 ONCE, 1 Medical dose, Lilian [place] 06/25/19 at 1845, [place]
Fa culty member approving Restricted medication : KIRSTIN RON NaCl 0.9% 2019-0 2020- No 1000mL at 999 Uni vers (NS) bolus 06-24 mL/hr, ity of infusion 22:45: 01:01 1,000 mL, [place] as 1,000 mL 00 :00 IV Medical Infusion, Branch ONCE, 1 dose, [facility] 06/25/19 at 1745, [place] maalox:diph 2019-0 2020- No 15mL 15 mL, Uni vers enhydrAMINE 06-24 Oral, ity of :lidocaine 22:45: 22:52 ONCE, 1 [place] 2 % viscous 00 :00 dose, [place]ian Med ical 1:1:1 06/25/19 at [place] (FIRST-MOUT 174, [place] HWASH BLM) oral suspension 15 mL morpHINE 2019-0 2020- [...] dose, Fri Med ical 1:1:1 06/19/19 at [place] (FIRST-MO 190, HWASH BLM) Routine oral suspension 15 mL famotidine 2019-0 2020- No 20mg 20 mg, Univ ers (PEPCID 06-18 Slow IV ity of (PF)) 22:30: 21:40 Push, [place] injection 00 :00 ONCE, 1 Medical 20 mg dose, Fri [place] 06/19/19 at 1630, [place] proMETHazin 2019-0 2020- No 12.5mg 12.5 mg, Univers e 3 03-06 IV ity of (PHENERGAN) 22:30: 21:40 Piggyback, [place] 12.5 mg in 00 :00 ONCE, 1 Medica l NaCl 0.9% dose, Fri Branc h (NS) 50 mL 06/19/19 at piggyback 1630, 50 mL morpHINE 2019-0 2020- No 4mg 4 mg, Slow Un you injection 4 06-18-06 IV Push, ity of mg 22:30: 21:40 ONCE, 1 [place] 00 :00 dose, Fri Medical 06/19/19 at Branch 1630, STAT NaCl 0.9% 2019-0 2020- No 1000mL at 999 Uni vers (NS) bolus 06-18 03-06 mL/hr, ity of infusion 21:30: 23:56 1,000 mL, [place] as 1,000 mL 00 :00 IV Medical Infusion, [place] ONCE, 1 dose, 06/19/19 at 1530, [place] ondansetron 2020-0 Yes [id number] 8mg Take 2 [facility] 4 mg 3-06 tablets by ity of disintegrat 00:00: mouth [place] ing tablet 00 every 8 Medica l (eight) Branch hours as needed for Nausea and Vomiting (N/V). ondansetron 2020-0 Yes [id number] 8mg Take 2 [facility] 4 mg 3-06 tablets by ity of disintegrat 00:00: mouth [place] ing tablet 00 every 8 Medica l (eight) Branch hours as needed for Nausea and Vomiting (N/V). ondansetron 2020-0 Yes [id number] 8mg Take 2 [facility] 4 mg 3-06 tablets by ity of disintegrat 00:00: mouth [place] ing tablet 00 every 8 Medica l (eight) Branch hours as needed for Nausea and Vomiting (N/V). ondansetron 2020-0 Yes [id number] 8mg Take 2 [facility] 4 mg 3-06 tablets by ity of disintegrat 00:00: mouth [place] ing tablet 00 every 8 Medica l (eight) Branch hours as needed for Nausea and Vomiting (N/V). ondansetron 2020-0 2020- No [id number] 8mg Take 2 [facility] 4 mg 3-06 10-26 tablets by ity of disintegrat 00:00: 00:00 mouth [place] ing tablet 00 :00 every 8 Medica l (eight) Branch hours as needed for Nausea and Vomiting (N/V). famotidine 2020-0 2020- No [id number] 40mg Take 1 [facility] (PEPCID) 40 3-06 04-06 tablet by it y of mg tablet 00:00: 04:59 mouth [place] 00 :00 daily for Medical 30 days. Branch famotidine 2020-0 2020- No [id number] 40mg Take 1 [facility] (PEPCID) 40 3-06 04-06 tablet by it y of mg tablet 00:00: 04:59 mouth [place] 00 :00 daily for Medical 30 days. Branch morpHINE 2020-0 2020- No 4mg 4 mg, Slow Un you injection 4 - 02-05 IV Push, ity of mg 04:15: 03:09 ONCE, 1 [place] 00 :00 dose, [facility] Medical 05/19/19 at [place] 2215, STAT iohexol 2020-0 2020- No 120mL [...] 4 mg, Slow Un you injection 4 -08 14-05 IV Push, ity of mg 02:15: 01:25 ONCE, 1 00 :00 dose, Tue Medical 05/19/19 at Branch 2014, STAT traMADol 2020-0 Yes [id number] 100mg Take 1 Un you 100 mg 24 2-04 tablet by ity o f hr tablet 00:00: mouth [place] 00 daily. Medical Branch ondansetron 2020-0 Yes [id number] 4mg Take 1 [facility] 4 mg 2-04 tablet by ity of disintegrat 00:00: mouth [place] ing tablet 00 every 8 Medica l (eight) Branch hours as needed for Nausea and Vomiting (N/V). ondansetron 2020-0 Yes [id number] 4mg Take 1 [facility] 4 mg 2-04 tablet by ity of disintegrat 00:00: mouth [place] ing tablet 00 every 8 Medica l (eight) Branch hours as needed for Nausea and Vomiting (N/V). ondansetron 2020-0 Yes [id number] 4mg Take 1 [facility] 4 mg 2-04 tablet by ity of disintegrat 00:00: mouth [place] ing tablet 00 every 8 Medica l (eight) Branch hours as needed for Nausea and Vomiting (N/V). ondansetron 2020-0 Yes [id number] 4mg Take 1 [facility] 4 mg 2-04 tablet by ity of disintegrat 00:00: mouth [place] ing tablet 00 every 8 Medica l (eight) Branch hours as needed for Nausea and Vomiting (N/V). ondansetron 2020-0 Yes [id number] 4mg Take 1 [facility] 4 mg 2-04 tablet by ity of disintegrat 00:00: mouth [place] ing tablet 00 every 8 Medica l (eight) Branch hours as needed for Nausea and Vomiting (N/V). ondansetron 2020-0 Yes [id number] 4mg Take 1 [facility] 4 mg 2-04 tablet by ity of disintegrat 00:00: mouth [place] ing tablet 00 every 8 Medica l (eight) Branch hours as needed for Nausea and Vomiting (N/V). ondansetron 2020-0 Yes [id number] 4mg Take 1 [facility] 4 mg 2-04 tablet by ity of disintegrat 00:00: mouth [place] ing tablet 00 every 8 Medica l (eight) Branch hours as needed for Nausea and Vomiting (N/V). ondansetron 2020-0 Yes [id number] 4mg Take 1 [facility] 4 mg 2-04 tablet by ity of disintegrat 00:00: mouth [place] ing tablet 00 every 8 Medica l (eight) Branch hours as needed for Nausea and Vomiting (N/V). ondansetron 2020-0 Yes [id number] 4mg Take 1 [facility] 4 mg 2-04 tablet by ity of disintegrat 00:00: mouth [place] ing tablet 00 every 8 Medica l (eight) Branch hours as needed for Nausea and Vomiting (N/V). ondansetron 2020-0 Yes [id number] 4mg Take 1 [facility] 4 mg 2-04 tablet by ity of disintegrat 00:00: mouth [place] ing tablet 00 every 8 Medica l (eight) Branch hours as needed for Nausea and Vomiting (N/V). ondansetron 2020-0 Yes [id number] 4mg Take 1 [facility] 4 mg 2-04 tablet by ity of disintegrat 00:00: mouth [place] ing tablet 00 every 8 Medica l (eight) Branch hours as needed for Nausea and Vomiting (N/V). ondansetron 2020-0 Yes [id number] 4mg Take 1 [facility] 4 mg 2-04 tablet by ity of disintegrat 00:00: mouth [place] ing tablet 00 every 8 Medica l (eight) Branch hours as needed for Nausea and Vomiting (N/V). ondansetron 2020-0 Yes [id number] 4mg Take 1 [facility] 4 mg 2-04 tablet by ity of disintegrat 00:00: mouth [place] ing tablet 00 every 8 Medica l (eight) Branch hours as needed for Nausea and Vomiting (N/V). ondansetron 2020-0 Yes [id number] 4mg Take 1 [facility] 4 mg 2-04 tablet by ity of disintegrat 00:00: mouth [place] ing tablet 00 every 8 Medica l (eight) Branch hours as needed for Nausea and Vomiting (N/V). ondansetron 2020-0 Yes [id number] 4mg Take 1 [facility] 4 mg 2-04 tablet by ity of disintegrat 00:00: mouth [place] ing tablet 00 every 8 Medica l (eight) Branch hours as needed for Nausea and Vomiting (N/V). ondansetron 2020-0 Yes [id number] 4mg Take 1 [facility] 4 mg 2-04 tablet by ity of disintegrat 00:00: mouth [place] ing tablet 00 every 8 Medica l (eight) Branch hours as needed for Nausea and Vomiting (N/V). ondansetron 2020-0 Yes [id number] 4mg Take 1 [facility] 4 mg 2-04 tablet by ity of disintegrat 00:00: mouth [place] ing tablet 00 every 8 Medica l (eight) Branch hours as needed for Nausea and Vomiting (N/V). ondansetron 2020-0 Yes [id number] 4mg Take 1 [facility] 4 mg 2-04 tablet by ity of disintegrat 00:00: mouth [place] ing tablet 00 every 8 Medica l (eight) Branch hours as needed for Nausea and Vomiting (N/V). ondansetron 2020-0 Yes [id number] 4mg Take 1 [facility] 4 mg 2-04 tablet by ity of disintegrat 00:00: mouth [place] ing tablet 00 every 8 Medica l (eight) Branch hours as needed for Nausea and Vomiting (N/V). traMADol 2020-0 Yes [id number] 100mg Take 1 Un you 100 mg 24 2-04 tablet by ity o f hr tablet 00:00: mouth [place] 00 daily. Medical Branch ondansetron 2020-0 Yes [id number] 4mg Take 1 [facility] 4 mg 2-04 tablet by ity of disintegrat 00:00: mouth [place] ing tablet 00 every 8 Medica l (eight) Branch hours as needed for Nausea and Vomiting (N/V). traMADol 2020-0 Yes [id number] 100mg Take 1 Un you 100 mg 24 2-04 tablet by ity o f hr tablet 00:00: mouth [place] 00 daily. Medical Branch ondansetron 2020-0 Yes [id number] 4mg Take 1 [facility] 4 mg 2-04 tablet by ity of disintegrat 00:00: mouth [place] ing tablet 00 every 8 Medica l (eight) Branch hours as needed for Nausea and Vomiting (N/V). traMADol 2020-0 Yes [id number] 100mg Take 1 Un you 100 mg 24 2-04 tablet by ity o f hr tablet 00:00: mouth [place] 00 daily. Medical Branch ondansetron 2020-0 Yes [id number] 4mg Take 1 [facility] 4 mg 2-04 tablet by ity of disintegrat 00:00: mouth [place] ing tablet 00 every 8 Medica l (eight) Branch hours as needed for Nausea and Vomiting (N/V). traMADol 2020-0 Yes [id number] 100mg Take 1 Un you 100 mg 24 2-04 tablet by ity o f hr tablet 00:00: mouth [place] 00 daily. Medical Branch ondansetron 2020-0 Yes [id number] 4mg Take 1 [facility] 4 mg 2-04 tablet by ity of disintegrat 00:00: mouth [place] ing tablet 00 every 8 Medica l (eight) Branch hours as needed for Nausea and Vomiting (N/V). traMADol 2020-0 Yes [id number] 100mg Take 1 Un you 100 mg 24 2-04 tablet by ity o f hr tablet 00:00: mouth [place] 00 daily. Medical Branch ondansetron Yes [id number] 4mg Take 1 [facility] 4 mg 2-04 tablet by ity of disintegrat 00:00: mouth [place] ing tablet 00 every 8 Medica l (eight) Branch hours as needed for Nausea and Vomiting (N/V). ondansetron 2020- No [id number] 4mg Take 1 [facility] 4 mg 2-04 04-05 tablet by [facility] disintegrat 00:00: 00:[place] 00 :00 every 8 Medica l (eight) Branch hours as needed for Nausea and Vomiting (N/V). ondansetron 2020- No [id number] 4mg Take 1 [facility] 4 mg 2-04 04-05 tablet by [facility] disintegrat 00:00: 00:[place] 00 :00 every 8 [facility]ica l (eight) Branch hours as needed for Nausea and Vomiting (N/V). traMADol No [id number] 100mg Take 1 [facility] 100 mg [...] 44 daily. Medical Branch ondansetron 2018-04 Yes [id number] 4mg Take 1 [facility] 4 mg tablet 0-26 tablet by ity of 00:00: mouth [place] 00 every 8 Medical (eight) Branch hours as needed for Nausea and Vomiting (N/V). ondansetron 2018-04 Yes [id number] 4mg Take 1 [facility] 4 mg tablet 0-26 tablet by ity of 00:00: mouth [place] 00 every 8 Medical (eight) Branch hours as needed for Nausea and Vomiting (N/V). ondansetron 2018-04 Yes [id number] 4mg Take 1 [facility] 4 mg tablet 0-26 tablet by ity of 00:00: mouth [place] 00 every 8 Medical (eight) Branch hours as needed for Nausea and Vomiting (N/V). ondansetron 2018-04 Yes [id number] 4mg Take 1 [facility] 4 mg tablet 0-26 tablet by ity of 00:00: mouth [place] 00 every 8 Medical (eight) Branch hours as needed for Nausea and Vomiting (N/V). ondansetron 2018-04 Yes [id number] 4mg Take 1 [facility] 4 mg tablet 0-26 tablet by ity of 00:00: mouth [place] 00 every 8 Medical (eight) Branch hours as needed for Nausea and Vomiting (N/V). ondansetron 2018-04 Yes [id number] 4mg Take 1 [facility] 4 mg tablet 0-26 tablet by ity of 00:00: mouth [place] 00 every 8 Medical (eight) Branch hours as needed for Nausea and Vomiting (N/V). ondansetron 2018-04 2020- No [id number] 4mg Take 1 [facility] 4 mg tablet 0-26 10-26 tablet by it y of 00:00: 00:00 mouth [place] 00 :00 every 8 Medical (eight) Branch hours as needed for Nausea and Vomiting (N/V). losartan Yes [id number] 100mg Take 1 [facility] 100 mg 9-23 tablet by [facility] of tablet 00:00: mouth [place] 00 daily. Medical Branch losartan 0 Yes [id number] 100mg Take 1 [facility] 100 mg 9-23 tablet by [facility] of tablet 00:00: mouth [place] 00 daily. Medical Branch losartan 2018-0 Yes [id number] 100mg Take 1 [facility] 100 mg 9-23 tablet by [facility] of tablet 00:00: mouth [place] 00 daily. Medical Branch losartan 2018-0 Yes [id number] 100mg Take 1 [facility] 100 mg 9-23 tablet by [facility] of tablet 00:00: mouth [place] 00 daily. Medical Branch losartan 2019-0 Yes [id number] 100mg Take 1 [facility] 100 mg 9-23 tablet by [facility] of tablet 00:00: mouth [place] 00 daily. Medical Branch losartan 2019-0 Yes [id number] 100mg Take 1 [facility] 100 mg 9-23 tablet by [facility]y of tablet 00:00: mouth [place] 00 daily. Medical Branch losartan 2019-0 Yes [id number] 100mg Take 1 [facility] 100 mg 9-23 tablet by [facility] of tablet 00:00: mouth [place] 00 daily. Medical Branch losartan 2018-0 Yes [id number] 100mg Take 1 [facility] 100 mg 9-23 tablet by [facility] of tablet 00:00: mouth [place] 00 daily. Medical Branch losartan 2019-0 Yes [id number] 100mg Take 1 [facility] 100 mg 9-23 tablet by [facility]y of tablet 00:00: mouth [place] 00 daily. Medical Branch losartan 2019-0 Yes [id number] 100mg Take 1 [facility] 100 mg 9-23 tablet by [facility] of tablet 00:00: mouth [place] 00 daily. Medical Branch losartan 2019-0 Yes [id number] 100mg Take 1 [facility] 100 mg 9-23 tablet by [facility] of tablet 00:00: mouth [place] 00 daily. Medical Branch losartan 2018-0 Yes [id number] 100mg Take 1 [facility] 100 mg 9-23 tablet by [facility]y of tablet 00:00: mouth [place] 00 daily. Medical Branch losartan 2018-0 Yes [id number] 100mg Take 1 [facility] 100 mg 9-23 tablet by [facility] of tablet 00:00: mouth [place] 00 daily. Medical Branch losartan 2018-0 Yes [id number] 100mg Take 1 [facility] 100 mg 9-23 tablet by [facility] of tablet 00:00: mouth [place] 00 daily. Medical Branch losartan 2018-0 Yes [id number] 100mg Take 1 [facility] 100 mg 9-23 tablet by [facility] of tablet 00:00: mouth [place] 00 daily. Medical Branch losartan 2019-0 Yes [id number] 100mg Take 1 [facility] 100 mg 9-23 tablet by [facility]y of tablet 00:00: mouth [place] 00 daily. Medical Branch losartan 2019-0 Yes [id number] 100mg Take 1 [facility] 100 mg 9-23 tablet by [facility] of tablet 00:00: mouth [place] 00 daily. Medical Branch losartan 2019-0 Yes [id number] 100mg Take 1 [facility] 100 mg 9-23 tablet by [facility]y of tablet 00:00: mouth [place] 00 daily. Medical Branch losartan 2019-0 Yes [id number] 100mg Take 1 [facility] 100 mg 9-23 tablet by [facility]y of tablet 00:00: mouth [place] 00 daily. Medical Branch losartan 2019-0 Yes [id number] 100mg Take 1 [facility] 100 mg 9-23 tablet by [facility]y of tablet 00:00: mouth [place] 00 daily. Medical Branch losartan 2019-0 Yes [id number] 100mg Take 1 [facility] 100 mg 9-23 tablet by [facility]y of tablet 00:00: mouth [place] 00 daily. Medical Branch losartan 2019-0 Yes [id number] 100mg Take 1 [facility] 100 mg 9-23 tablet by [facility]y of tablet 00:00: mouth [place] 00 daily. Medical Branch losartan Yes [id number] 100mg Take 1 [facility] 100 mg 9-23 tablet by it[facility] of tablet 00:00: mouth [place] 00 daily. Medical Branch losartan Yes [id number] 100mg Take 1 [facility] 100 mg 9-23 tablet by [facility] of tablet 00:00: mouth [place] 00 daily. Medical Branch losartan 2020- No [id number] 100mg Take 1 [facility] 100 mg 9-05 08-05 tablet by [facility]y of tablet 00:00: 00:00 mouth [place] 00 :00 daily. Medical Branch losartan 2018-2020- No [id number] 100mg Take 1 [facility] 100 mg -05 08-05 tablet by [facility] of tablet 00:00: 00:00 mouth [place] 00 :00 daily. Medical Branch traMADol 50 Yes [id number] 1 by mouth [facility] mg tablet 12-05 [id number] every 4-6 ity of 00:00: hours as [place] 00 needed for Medical pain Branch traMADol 50 Yes [id number] 1 by mouth [facility] mg tablet 12-05 [id number] every 4-6 ity of 00:00: hours as [place] 00 needed for Medical pain Branch traMADol 50 2018- Yes [id number] 1 by mouth [facility] mg tablet 12-05 [id number] every 4-6 ity of 00:00: hours as [place] 00 needed for Medical pain Branch traMADol 50 2018- Yes [id number] 1 by mouth [facility] mg tablet 12-05 [id number] every 4-6 ity of 00:00: hours as [place] 00 needed for Medical pain Branch traMADol 50 2018- Yes [id number] 1 by mouth [facility] mg tablet - [id number] every 4-6 ity of 00:00: hours as [place] 00 needed for Medical pain Branch traMADol 50 2018- Yes [id number] 1 by mouth [facility] mg tablet - [id number] every 4-6 ity of 00:00: hours as [place] 00 needed for Medical pain Branch traMADol 50 2018- Yes [id number] 1 by mouth [facility] mg tablet 8- [id number] every 4-6 ity of 00:00: hours as [place] 00 needed for Medical pain Branch traMADol 50 2018- Yes [id number] 1 by mouth [facility] mg tablet 12-05 [id number] every 4-6 ity of 00:00: hours as [place] 00 needed for Medical pain Branch traMADol 50 2019-0 Yes [id number] 1 by mouth [facility] mg tablet 12-05 [id number] every 4-6 ity of 00:00: hours as [place] 00 needed for Medical pain Branch traMADol 50 2019-0 Yes [id number] 1 by mouth [facility] mg tablet 12-05 [id number] every 4-6 ity of 00:00: hours as [place] 00 needed for Medical pain Branch traMADol 50 2019-0 Yes [id number] 1 by mouth [facility] mg tablet 12-05 [id number] every 4-6 ity of 00:00: hours as [place] 00 needed for Medical pain Branch traMADol 50 2019-0 Yes [id number] 1 by mouth [facility] mg tablet 12-05 [id number] every 4-6 ity of 00:00: hours as [place] 00 needed for Medical pain Branch traMADol 50 2019-0 Yes [id number] 1 by mouth [facility] mg tablet 12-05 [id number] every 4-6 ity of 00:00: hours as [place] 00 needed for Medical pain Branch traMADol 50 2019-0 Yes [id number] 1 by mouth [facility] mg tablet 12-05 [id number] every 4-6 ity of 00:00: hours as [place] 00 needed for Medical pain Branch traMADol 50 2019-0 Yes [id number] 1 by mouth [facility] mg tablet 12-05 [id number] every 4-6 ity of 00:00: hours as [place] 00 needed for Medical pain Branch traMADol 50 2019-0 Yes [id number] 1 by mouth [facility] mg tablet 12-05 [id number] every 4-6 ity of 00:00: hours as [place] 00 needed for Medical pain Branch traMADol 50 2019-0 Yes [id number] 1 by mouth [facility] mg tablet 12-05 [id number] every 4-6 ity of 00:00: hours as [place] 00 needed for Medical pain Branch traMADol 50 2019-0 2020- No [id number] 1 by mouth [facility] mg tablet 12-05 [id number] every 4-6 it y of 00:00: 00:00 hours as [place] 00 :00 needed for Medical pain Branch ondansetron 2019-0 2019- No 4mg 4 mg, Slow [facility] (ZOFRAN 12-01 IV Push, ity of (PF)) 22:45: 22:25 ONCE, 1 [place] injection 4 00 :00 dose, Mon Med ical mg 12/01/18 at Branch 1745, LOUIS morpHINE 2019- 2019- No 4mg 4 mg, Slow Un you injection 4 12-01 IV Push, ity of mg 22:45: 22:26 ONCE, 1 [place] 00 :00 dose, Mon Medical 12/01/18 at Branch 1745, Routine ketorolac 2018- 2019- No 30mg 30 mg, Unive rs (TORADOL) 12-01 Slow IV ity of injection 20:45: 19:47 Push, [place] 30 mg 00 :00 ONCE, 1 Medical dose, [facility] Branch 12/01/18 at 1545, L[facility]IS
Fa culty [...] [place] ORAL) 24 daily. Medical Branch gabapentin 2018-0 Yes 300mg Take 300 Un you (NEURONTIN) [...] [place] 24 as needed. Medical Branch tiZANidine 2018- Yes 4mg Take 4 mg Un you 4 mg 8-05 by mouth 2 ity of capsule 21:38: (two) [place] 24 times Medical daily. Branch pantoprazol Yes 40mg 40 mg, [facility] ers e 8-05 Oral, BID, ity of (PROTONIX) 13:00: [place] dose [place] [facility] tablet 00 on Sat Medical 40 mg 11/17/18 at Branch 0800, Until Discontinu ed, Routine FENTanyl PF 2018- 2019- No 75ug 75 mcg, Un you (SUBLIMAZE 8-05 08-05 Slow IV ity o f (PF)) 02:15: 01:11 Push, [place] injection 00 :00 ONCE, 1 Medical 75 mcg dose, [facility] 11/16/18 at 2115, OLUIS pantoprazol 2018- Yes [id number] 40mg Take 1 [facility] e 40 mg EC 8-05 tablet by ity of tablet 00:00: mouth 2 [place] 00 (two) Medical times Branch daily. proMETHazin 2018- Yes [id number] 25mg Take 1 [facility] e 25 mg 8-05 tablet by ity of tablet 00:00: mouth [place] 00 every 6 Medical (six) Branch hours as needed for N/V alternatin g with Ondansetro n. HYDROcodone 2018- Yes [id number] 1{tbl} Take 1 [facility] -acetaminop 8-05 tablet by ity of hen 7.5-325 00:00: mouth [place] mg per 00 every 6 Medical tablet (six) Branch hours as needed (Pain scal 7-10). pantoprazol 2018- Yes [id number] 40mg Take 1 [facility] e 40 mg EC 8-05 tablet by ity of tablet 00:00: mouth 2 [place] 00 (two) Medical times Branch daily. proMETHazin 2018- Yes [id number] 25mg Take 1 [facility] e 25 mg 8-05 tablet by ity of tablet 00:00: mouth [place] 00 every 6 Medical (six) Branch hours as needed for N/V alternatin g with Ondansetro n. HYDROcodone Yes [id number] 1{tbl} Take 1 [facility] -acetaminop 8-05 tablet by ity of hen 7.5-325 00:00: mouth [place] mg per 00 every 6 Medical tablet (six) Branch hours as needed (Pain scal 7-10). pantoprazol 2018- Yes [id number] 40mg Take 1 [facility] e 40 mg EC 8-05 tablet by ity of tablet 00:00: mouth 2 [place] 00 (two) Medical times Branch daily. proMETHazin Yes [id number] 25mg Take 1 [facility] e 25 mg 8-05 tablet by ity of tablet 00:00: mouth [place] 00 every 6 Medical (six) Branch hours as needed for N/V alternatin g with Ondansetro n. HYDROcodone Yes [id number] 1{tbl} Take 1 [facility] -acetaminop 8-05 tablet by ity of hen 7.5-325 00:00: mouth [place] mg per 00 every 6 Medical tablet (six) Branch hours as needed (Pain scal 7-10). pantoprazol Yes [id number] 40mg Take 1 [facility] e 40 mg EC 8-05 tablet by ity of tablet 00:00: mouth 2 (two) Medical times Branch daily. proMETHazin 2018- Yes [id number] 25mg Take 1 [facility] e 25 mg 8-05 tablet by ity of tablet 00:00: mouth [place] 00 every 6 Medical (six) Branch hours as needed for N/V alternatin g with Ondansetro n. HYDROcodone 2018- Yes [id number] 1{tbl} Take 1 [facility] -acetaminop 8-05 tablet by ity of hen 7.5-325 00:00: mouth [place] mg per 00 every 6 Medical tablet (six) Branch hours as needed (Pain scal 7-10). pantoprazol 2018- Yes [id number] 40mg Take 1 [facility] e 40 mg EC 8-05 tablet by ity of tablet 00:00: mouth 2 [place] 00 (two) Medical times Branch daily. proMETHazin 2019- Yes [id number] 25mg Take 1 [facility] e 25 mg 8-05 tablet by ity of tablet 00:00: mouth [place] 00 every 6 Medical (six) Branch hours as needed for N/V alternatin g with Ondansetro n. HYDROcodone 2018- Yes [id number] 1{tbl} Take 1 [facility] -acetaminop 8-05 tablet by ity of hen 7.5-325 00:00: mouth [place] mg per 00 every 6 Medical tablet (six) Branch hours as needed (Pain scal 7-10). pantoprazol 2018- Yes [id number] 40mg Take 1 [facility] e 40 mg EC 8-05 tablet by ity of tablet 00:00: mouth 2 [place] 00 (two) Medical times Branch daily. proMETHazin 2018- Yes [id number] 25mg Take 1 [facility] e 25 mg 8-05 tablet by ity of tablet 00:00: mouth [place] 00 every 6 Medical (six) Branch hours as needed for N/V alternatin g with Ondansetro n. HYDROcodone 2018- Yes [id number] 1{tbl} Take 1 [facility] -acetaminop 8-05 tablet by ity of hen 7.5-325 00:00: mouth [place] mg per 00 every 6 Medical tablet (six) Branch hours as needed (Pain scal 7-10). pantoprazol 2018- Yes [id number] 40mg Take 1 [facility] e 40 mg EC 8-05 tablet by ity of tablet 00:00: mouth 2 [place] 00 (two) Medical times Branch daily. proMETHazin 2018- Yes [id number] 25mg Take 1 [facility] e 25 mg 8-05 tablet by ity of tablet 00:00: mouth [place] 00 every 6 Medical (six) Branch hours as needed for N/V alternatin g with Ondansetro n. HYDROcodone 2018- Yes [id number] 1{tbl} Take 1 [facility] -acetaminop 8-05 tablet by ity of hen 7.5-325 00:00: mouth [place] mg per 00 every 6 Medical tablet (six) Branch hours as needed (Pain scal 7-10). pantoprazol 2019-0 Yes [id number] 40mg Take 1 [facility] e 40 mg EC 8-05 tablet by ity of tablet 00:00: mouth 2 [place] 00 (two) Medical times Branch daily. proMETHazin 2019- Yes [id number] 25mg Take 1 [facility] e 25 mg 8-05 tablet by ity of tablet 00:00: mouth [place] 00 every 6 Medical (six) Branch hours as needed for N/V alternatin g with Ondansetro n. HYDROcodone Yes [id number] 1{tbl} Take 1 [facility] -acetaminop 8-05 tablet by ity of hen 7.5-325 00:00: mouth [place] mg per 00 every 6 Medical tablet (six) Branch hours as needed (Pain scal 7-10). pantoprazol Yes [id number] 40mg Take 1 [facility] e 40 mg EC 8-05 tablet by ity of tablet 00:00: mouth 2 [place] 00 (two) Medical times Branch daily. proMETHazin Yes [id number] 25mg Take 1 [facility] e 25 mg 8-05 tablet by ity of tablet 00:00: mouth [place] 00 every 6 Medical (six) Branch hours as needed for N/V alternatin g with Ondansetro n. HYDROcodone Yes [id number] 1{tbl} Take 1 [facility] -acetaminop 8-05 tablet by ity of hen 7.5-325 00:00: mouth [place] mg per 00 every 6 Medical tablet (six) Branch hours as needed (Pain scal 7-10). pantoprazol Yes [id number] 40mg Take 1 [facility] e 40 mg EC 8-05 tablet by ity of tablet 00:00: mouth 2 [place] 00 (two) Medical times Branch daily. proMETHazin Yes [id number] 25mg Take 1 [facility] e 25 mg 8-05 tablet by ity of tablet 00:00: mouth [place] 00 every 6 Medical (six) Branch hours as needed for N/V alternatin g with Ondansetro n. HYDROcodone Yes [id number] 1{tbl} Take 1 [facility] -acetaminop 8-05 tablet by ity of hen 7.5-325 00:00: mouth [place] mg per 00 every 6 Medical tablet (six) Branch hours as needed (Pain scal 7-10). pantoprazol Yes [id number] 40mg Take 1 [facility] e 40 mg EC 8-05 tablet by ity of tablet 00:00: mouth 2 [place] 00 (two) Medical times Branch daily. proMETHazin Yes [id number] 25mg Take 1 [facility] e 25 mg 8-05 tablet by ity of tablet 00:00: mouth [place] 00 every 6 Medical (six) Branch hours as needed for N/V alternatin g with Ondansetro n. HYDROcodone Yes [id number] 1{tbl} Take 1 [facility] -acetaminop 8-05 tablet by ity of hen 7.5-325 00:00: mouth [place] mg per 00 every 6 Medical tablet (six) Branch hours as needed (Pain scal 7-10). pantoprazol Yes [id number] 40mg Take 1 [facility] e 40 mg EC 8-05 tablet by ity of tablet 00:00: mouth 2 [place] 00 (two) Medical times Branch daily. proMETHazin Yes [id number] 25mg Take 1 [facility] e 25 mg 8-05 tablet by ity of tablet 00:00: mouth [place] 00 every 6 Medical (six) Branch hours as needed for N/V alternatin g with Ondansetro n. HYDROcodone Yes [id number] 1{tbl} Take 1 [facility] -acetaminop 8-05 tablet by ity of hen 7.5-325 00:00: mouth [place] mg per 00 every 6 Medical tablet (six) Branch hours as needed (Pain scal 7-10). pantoprazol Yes [id number] 40mg Take 1 [facility] e 40 mg EC 8-05 tablet by ity of tablet 00:00: mouth 2 [place] 00 (two) Medical times Branch daily. proMETHazin Yes [id number] 25mg Take 1 [facility] e 25 mg 8-05 tablet by ity of tablet 00:00: mouth [place] 00 every 6 Medical (six) Branch hours as needed for N/V alternatin g with Ondansetro n. HYDROcodone Yes [id number] 1{tbl} Take 1 [facility] -acetaminop 8-05 tablet by ity of hen 7.5-325 00:00: mouth [place] mg per 00 every 6 Medical tablet (six) Branch hours as needed (Pain scal 7-10). pantoprazol Yes [id number] 40mg Take 1 [facility] e 40 mg EC 8-05 tablet by ity of tablet 00:00: mouth 2 [place] 00 (two) Medical times Branch daily. proMETHazin Yes [id number] 25mg Take 1 [facility] e 25 mg 8-05 tablet by ity of tablet 00:00: mouth [place] 00 every 6 Medical (six) Branch hours as needed for N/V alternatin g with Ondansetro n. HYDROcodone Yes [id number] 1{tbl} Take 1 [facility] -acetaminop 8-05 tablet by ity of hen 7.5-325 00:00: mouth [place] mg per 00 every 6 Medical tablet (six) Branch hours as needed (Pain scal 7-10). pantoprazol Yes [id number] 40mg Take 1 [facility] e 40 mg EC 8-05 tablet by ity of tablet 00:00: mouth 2 [place] 00 (two) Medical times Branch daily. proMETHazin Yes [id number] 25mg Take 1 [facility] e 25 mg 8-05 tablet by ity of tablet 00:00: mouth [place] 00 every 6 Medical (six) Branch hours as needed for N/V alternatin g with Ondansetro n. HYDROcodone Yes [id number] 1{tbl} Take 1 [facility] -acetaminop 8-05 tablet by ity of hen 7.5-325 00:00: mouth [place] mg per 00 every 6 Medical tablet (six) Branch hours as needed (Pain scal 7-10). pantoprazol Yes [id number] 40mg Take 1 [facility] e 40 mg EC 8-05 tablet by ity of tablet 00:00: mouth 2 [place] 00 (two) Medical times Branch daily. proMETHazin Yes [id number] 25mg Take 1 [facility] e 25 mg 8-05 tablet by ity of tablet 00:00: mouth [place] 00 every 6 Medical (six) Branch hours as needed for N/V alternatin g with Ondansetro n. HYDROcodone Yes [id number] 1{tbl} Take 1 [facility] -acetaminop 8-05 tablet by ity of hen 7.5-325 00:00: mouth [place] mg per 00 every 6 Medical tablet (six) Branch hours as needed (Pain scal 7-10). pantoprazol Yes [id number] 40mg Take 1 [facility] e 40 mg EC 8-05 tablet by ity of tablet 00:00: mouth 2 [place] 00 (two) Medical times Branch daily. proMETHazin Yes [id number] 25mg Take 1 [facility] e 25 mg 8-05 tablet by ity of tablet 00:00: mouth [place] 00 every 6 Medical (six) Branch hours as needed for N/V alternatin g with Ondansetro n. HYDROcodone Yes [id number] 1{tbl} Take 1 [facility] -acetaminop 8-05 tablet by ity of hen 7.5-325 00:00: mouth [place] mg per 00 every 6 Medical tablet (six) Branch hours as needed (Pain scal 7-10). pantoprazol Yes [id number] 40mg Take 1 [facility] e 40 mg EC 8-05 tablet by ity of tablet 00:00: mouth 2 [place] 00 (two) Medical times Branch daily. proMETHazin Yes [id number] 25mg Take 1 [facility] e 25 mg 8-05 tablet by ity of tablet 00:00: mouth [place] 00 every 6 Medical (six) Branch hours as needed for N/V alternatin g with Ondansetro n. HYDROcodone Yes [id number] 1{tbl} Take 1 [facility] -acetaminop 8-05 tablet by ity of hen 7.5-325 00:00: mouth [place] mg per 00 every 6 Medical tablet (six) Branch hours as needed (Pain scal 7-10). pantoprazol Yes [id number] 40mg Take 1 [facility] e 40 mg EC 8-05 tablet by ity of tablet 00:00: mouth 2 [place] 00 (two) Medical times Branch daily. proMETHazin Yes [id number] 25mg Take 1 [facility] e 25 mg 8-05 tablet by ity of tablet 00:00: mouth [place] 00 every 6 Medical (six) Branch hours as needed for N/V alternatin g with Ondansetro n. HYDROcodone Yes [id number] 1{tbl} Take 1 [facility] -acetaminop 8-05 tablet by ity of hen 7.5-325 00:00: mouth [place] mg per 00 every 6 Medical tablet (six) Branch hours as needed (Pain scal 7-10). HYDROcodone Yes [id number] 1{tbl} Take 1 [facility] -acetaminop 8-05 tablet by ity of hen 7.5-325 00:00: mouth [place] mg per 00 every 6 Medical tablet (six) Branch hours as needed (Pain scal 7-10). HYDROcodone Yes [id number] 1{tbl} Take 1 [facility] -acetaminop 8-05 tablet by ity of hen 7.5-325 00:00: mouth [place] mg per 00 every 6 Medical tablet (six) Branch hours as needed (Pain scal 7-10). HYDROcodone Yes [id number] 1{tbl} Take 1 [facility] -acetaminop 8-05 tablet by ity of hen 7.5-325 00:00: mouth [place] mg per 00 every 6 Medical tablet (six) Branch hours as needed (Pain scal 7-10). HYDROcodone Yes [id number] 1{tbl} Take 1 [facility] -acetaminop 8-05 tablet by ity of hen 7.5-325 00:00: mouth [place] mg per 00 every 6 Medical tablet (six) Branch hours as needed (Pain scal 7-10). HYDROcodone Yes [id number] 1{tbl} Take 1 [facility] -acetaminop 8-05 tablet by ity of hen 7.5-325 00:00: mouth [place] mg per 00 every 6 Medical tablet (six) Branch hours as needed (Pain scal 7-10). HYDROcodone Yes [id number] 1{tbl} Take 1 [facility] -acetaminop 8-05 tablet by ity of hen 7.5-325 00:00: mouth [place] mg per 00 every 6 Medical tablet (six) Branch hours as needed (Pain scal 7-10). HYDROcodone Yes [id number] 1{tbl} Take 1 [facility] -acetaminop 8-05 tablet by ity of hen 7.5-325 00:00: mouth [place] mg per 00 every 6 Medical tablet (six) Branch hours as needed (Pain scal 7-10). HYDROcodone Yes [id number] 1{tbl} Take 1 [facility] -acetaminop 8-05 tablet by ity of hen 7.5-325 00:00: mouth [place] mg per 00 every 6 Medical tablet (six) Branch hours as needed (Pain scal 7-10). HYDROcodone Yes [id number] 1{tbl} Take 1 [facility] -acetaminop 8-05 tablet by ity of hen 7.5-325 00:00: mouth [place] mg per 00 every 6 Medical tablet (six) Branch hours as needed (Pain scal 7-10). HYDROcodone Yes [id number] 1{tbl} Take 1 [facility] -acetaminop 8-05 tablet by ity of hen 7.5-325 00:00: mouth [place] mg per 00 every 6 Medical tablet (six) Branch hours as needed (Pain scal 7-10). HYDROcodone Yes [id number] 1{tbl} Take 1 [facility] -acetaminop 8-05 tablet by ity of hen 7.5-325 00:00: mouth [place] mg per 00 every 6 Medical tablet (six) Branch hours as needed (Pain scal 7-10). HYDROcodone Yes [id number] 1{tbl} Take 1 [facility] -acetaminop 8-05 tablet by ity of hen 7.5-325 00:00: mouth [place] mg per 00 every 6 Medical tablet (six) Branch hours as needed (Pain scal 7-10). HYDROcodone Yes [id number] 1{tbl} Take 1 [facility] -acetaminop 8-05 tablet by ity of hen 7.5-325 00:00: mouth [place] mg per 00 every 6 Medical tablet (six) Branch hours as needed (Pain scal 7-10). HYDROcodone Yes [id number] 1{tbl} Take 1 [facility] -acetaminop 8-05 tablet by ity of hen 7.5-325 00:00: mouth [place] mg per 00 every 6 Medical tablet (six) Branch hours as needed (Pain scal 7-10). HYDROcodone Yes [id number] 1{tbl} Take 1 [facility] -acetaminop 8-05 tablet by ity of hen 7.5-325 00:00: mouth [place] mg per 00 every 6 Medical tablet (six) Branch hours as needed (Pain scal 7-10). HYDROcodone Yes [id number] 1{tbl} Take 1 [facility] -acetaminop 8-05 tablet by ity of hen 7.5-325 00:00: mouth [place] mg per 00 every 6 Medical tablet (six) Branch hours as needed (Pain scal 7-10). HYDROcodone Yes [id number] 1{tbl} Take 1 [facility] -acetaminop 8-05 tablet by ity of hen 7.5-325 00:00: mouth [place] mg per 00 every 6 Medical tablet (six) Branch hours as needed (Pain scal 7-10). HYDROcodone Yes [id number] 1{tbl} Take 1 [facility] -acetaminop 8-05 tablet by ity of hen 7.5-325 00:00: mouth [place] mg per 00 every 6 Medical tablet (six) Branch hours as needed (Pain scal 7-10). HYDROcodone Yes [id number] 1{tbl} Take 1 [facility] -acetaminop 8-05 tablet by ity of hen 7.5-325 00:00: mouth [place] mg per 00 every 6 Medical tablet (six) Branch hours as needed (Pain scal 7-10). HYDROcodone Yes [id number] 1{tbl} Take 1 [facility] -acetaminop 8-05 tablet by ity of hen 7.5-325 00:00: mouth [place] mg per 00 every 6 Medical tablet (six) Branch hours as needed (Pain scal 7-10). HYDROcodone Yes [id number] 1{tbl} Take 1 [facility] -acetaminop 8-05 tablet by ity of hen 7.5-325 00:00: mouth [place] mg per 00 every 6 Medical tablet (six) Branch hours as needed (Pain scal 7-10). HYDROcodone Yes [id number] 1{tbl} Take 1 [facility] -acetaminop 8-05 tablet by ity of hen 7.5-325 00:00: mouth [place] mg per 00 every 6 Medical tablet (six) Branch hours as needed (Pain scal 7-10). HYDROcodone Yes [id number] 1{tbl} Take 1 [facility] -acetaminop 8-05 tablet by ity of hen 7.5-325 00:00: mouth [place] mg per 00 every 6 Medical tablet (six) Branch hours as needed (Pain scal 7-10). HYDROcodone Yes [id number] 1{tbl} Take 1 [facility] -acetaminop 8-05 tablet by ity of hen 7.5-325 00:00: mouth [place] mg per 00 every 6 Medical tablet (six) Branch hours as needed (Pain scal 7-10). HYDROcodone Yes [id number] 1{tbl} Take 1 [facility] -acetaminop 8-05 tablet by ity of hen 7.5-325 00:00: mouth [place] mg per 00 every 6 Medical tablet (six) Branch hours as needed (Pain scal 7-10). HYDROcodone Yes [id number] 1{tbl} Take 1 [facility] -acetaminop 8-05 tablet by ity of hen 7.5-325 00:00: mouth [place] mg per 00 every 6 Medical tablet (six) Branch hours as needed (Pain scal 7-10). HYDROcodone Yes [id number] 1{tbl} Take 1 [facility] -acetaminop 8-05 tablet by ity of hen 7.5-325 00:00: mouth [place] mg per 00 every 6 Medical tablet (six) Branch hours as needed (Pain scal 7-10). HYDROcodone Yes [id number] 1{tbl} Take 1 [facility] -acetaminop 8-05 tablet by ity of hen 7.5-325 00:00: mouth [place] mg per 00 every 6 Medical tablet (six) Branch hours as needed (Pain scal 7-10). HYDROcodone Yes [id number] 1{tbl} Take 1 [facility] -acetaminop 8-05 tablet by ity of hen 7.5-325 00:00: mouth [place] mg per 00 every 6 Medical tablet (six) Branch hours as needed (Pain scal 7-10). HYDROcodone Yes [id number] 1{tbl} Take 1 [facility] -acetaminop 8-05 tablet by ity of hen 7.5-325 00:00: mouth [place] mg per 00 every 6 Medical tablet (six) Branch hours as needed (Pain scal 7-10). HYDROcodone Yes [id number] 1{tbl} Take 1 [facility] -acetaminop 8-05 tablet by ity of hen 7.5-325 00:00: mouth [place] mg per 00 every 6 Medical tablet (six) Branch hours as needed (Pain scal 7-10). HYDROcodone Yes [id number] 1{tbl} Take 1 [facility] -acetaminop 8-05 tablet by ity of hen 7.5-325 00:00: mouth [place] mg per 00 every 6 Medical tablet (six) Branch hours as needed (Pain scal 7-10). HYDROcodone Yes [id number] 1{tbl} Take 1 [facility] -acetaminop 8-05 tablet by ity of hen 7.5-325 00:00: mouth [place] mg per 00 every 6 Medical tablet (six) Branch hours as needed (Pain scal 7-10). HYDROcodone Yes [id number] 1{tbl} Take 1 [facility] -acetaminop 8-05 tablet by ity of hen 7.5-325 00:00: mouth [place] mg per 00 every 6 Medical tablet (six) Branch hours as needed (Pain scal 7-10). HYDROcodone Yes [id number] 1{tbl} Take 1 [facility] -acetaminop 8-05 tablet by ity of hen 7.5-325 00:00: mouth [place] mg per 00 every 6 Medical tablet (six) Branch hours as needed (Pain scal 7-10). HYDROcodone Yes [id number] 1{tbl} Take 1 [facility] -acetaminop 8-05 tablet by ity of hen 7.5-325 00:00: mouth [place] mg per 00 every 6 Medical tablet (six) Branch hours as needed (Pain scal 7-10). HYDROcodone Yes [id number] 1{tbl} Take 1 [facility] -acetaminop 8-05 tablet by ity of hen 7.5-325 00:00: mouth [place] mg per 00 every 6 Medical tablet (six) Branch hours as needed (Pain scal 7-10). pantoprazol Yes [id number] 40mg Take 1 [facility] e 40 mg EC 8-05 tablet by ity of tablet 00:00: mouth 2 [place] 00 (two) Medical times Branch daily. ondansetron Yes [id number] 4mg Take 1 [facility] 4 mg tablet 8-05 tablet by ity of 00:00: mouth [place] 00 every 8 Medical (eight) Branch hours as needed for Nausea and Vomiting (N/V). proMETHazin 2018- Yes [id number] 25mg Take 1 [facility] e 25 mg 8-05 tablet by ity of tablet 00:00: mouth [place] 00 every 6 Medical (six) Branch hours as needed for N/V alternatin g with Ondansetro n. HYDROcodone Yes [id number] 1{tbl} Take 1 [facility] -acetaminop 8-05 tablet by ity of hen 7.5-325 00:00: mouth [place] mg per 00 every 6 Medical tablet (six) Branch hours as needed (Pain scal 7-10). pantoprazol Yes [id number] 40mg Take 1 [facility] e 40 mg EC 8-05 tablet by ity of tablet 00:00: mouth 2 [place] 00 (two) Medical times Branch daily. ondansetron 2018- Yes [id number] 4mg Take 1 [facility] 4 mg tablet 8-05 tablet by ity of 00:00: mouth [place] 00 every 8 Medical (eight) Branch hours as needed for Nausea and Vomiting (N/V). proMETHazin 2018- Yes [id number] 25mg Take 1 [facility] e 25 mg 8-05 tablet by ity of tablet 00:00: mouth [place] 00 every 6 Medical (six) Branch hours as needed for N/V alternatin g with Ondansetro n. HYDROcodone Yes [id number] 1{tbl} Take 1 [facility] -acetaminop 8-05 tablet by ity of hen 7.5-325 00:00: mouth [place] mg per 00 every 6 Medical tablet (six) Branch hours as needed (Pain scal 7-10). pantoprazol Yes [id number] 40mg Take 1 [facility] e 40 mg EC 8-05 tablet by ity of tablet 00:00: mouth 2 [place] 00 (two) Medical times Branch daily. ondansetron Yes [id number] 4mg Take 1 [facility] 4 mg tablet 8-05 tablet by ity of 00:00: mouth [place] 00 every 8 Medical (eight) Branch hours as needed for Nausea and Vomiting (N/V). proMETHazin 2019-0 Yes [id number] 25mg Take 1 [facility] e 25 mg 8-05 tablet by ity of tablet 00:00: mouth [place] 00 every 6 Medical (six) Branch hours as needed for N/V alternatin g with Ondansetro n. HYDROcodone 2018-0 Yes [id number] 1{tbl} Take 1 [facility] -acetaminop 8-05 tablet by ity of hen 7.5-325 00:00: mouth [place] mg per 00 every 6 Medical tablet (six) Branch hours as needed (Pain scal 7-10). pantoprazol Yes [id number] 40mg Take 1 [facility] e 40 mg EC 8-05 tablet by ity of tablet 00:00: mouth 2 [place] 00 (two) Medical times Branch daily. ondansetron Yes [id number] 4mg Take 1 [facility] 4 mg tablet 8-05 tablet by ity of 00:00: mouth [place] 00 every 8 Medical (eight) Branch hours as needed for Nausea and Vomiting (N/V). proMETHazin Yes [id number] 25mg Take 1 [facility] e 25 mg 8-05 tablet by ity of tablet 00:00: mouth [place] 00 every 6 Medical (six) Branch hours as needed for N/V alternatin g with Ondansetro n. HYDROcodone Yes [id number] 1{tbl} Take 1 [facility] -acetaminop 8-05 tablet by ity of hen 7.5-325 00:00: mouth [place] mg per 00 every 6 Medical tablet (six) Branch hours as needed (Pain scal 7-10). pantoprazol Yes [id number] 40mg Take 1 [facility] e 40 mg EC 8-05 tablet by ity of tablet 00:00: mouth 2 [place] 00 (two) Medical times Branch daily. ondansetron Yes [id number] 4mg Take 1 [facility] 4 mg tablet 8-05 tablet by ity of 00:00: mouth [place] 00 every 8 Medical (eight) Branch hours as needed for Nausea and Vomiting (N/V). proMETHazin Yes [id number] 25mg Take 1 [facility] e 25 mg 8-05 tablet by ity of tablet 00:00: mouth [place] 00 every 6 Medical (six) Branch hours as needed for N/V alternatin g with Ondansetro n. HYDROcodone Yes [id number] 1{tbl} Take 1 [facility] -acetaminop 8-05 tablet by ity of hen 7.5-325 00:00: mouth [place] mg per 00 every 6 Medical tablet (six) Branch hours as needed (Pain scal 7-10). pantoprazol Yes [id number] 40mg Take 1 [facility] e 40 mg EC 8-05 tablet by ity of tablet 00:00: mouth 2 [place] 00 (two) Medical times Branch daily. ondansetron Yes [id number] 4mg Take 1 [facility] 4 mg tablet 8-05 tablet by ity of 00:00: mouth [place] 00 every 8 Medical (eight) Branch hours as needed for Nausea and Vomiting (N/V). proMETHazin 2019-0 Yes [id number] 25mg Take 1 [facility] e 25 mg 8-05 tablet by ity of tablet 00:00: mouth [place] 00 every 6 Medical (six) Branch hours as needed for N/V alternatin g with Ondansetro n. HYDROcodone 2018- Yes [id number] 1{tbl} Take 1 [facility] -acetaminop 8-05 tablet by ity of hen 7.5-325 00:00: mouth [place] mg per 00 every 6 Medical tablet (six) Branch hours as needed (Pain scal 7-10). pantoprazol 2018- Yes [id number] 40mg Take 1 [facility] e 40 mg EC 8-05 tablet by ity of tablet 00:00: mouth 2 [place] 00 (two) Medical times Branch daily. ondansetron 2018- Yes [id number] 4mg Take 1 [facility] 4 mg tablet 8-05 tablet by ity of 00:00: mouth [place] 00 every 8 Medical (eight) Branch hours as needed for Nausea and Vomiting (N/V). proMETHazin 2018- Yes [id number] 25mg Take 1 [facility] e 25 mg 8-05 tablet by ity of tablet 00:00: mouth [place] 00 every 6 Medical (six) Branch hours as needed for N/V alternatin g with Ondansetro n. HYDROcodone 2018- Yes [id number] 1{tbl} Take 1 [facility] -acetaminop 8-05 tablet by ity of hen 7.5-325 00:00: mouth [place] mg per 00 every 6 Medical tablet (six) Branch hours as needed (Pain scal 7-10). pantoprazol 2019-0 Yes [id number] 40mg Take 1 [facility] e 40 mg EC 8-05 tablet by ity of tablet 00:00: mouth 2 [place] 00 (two) Medical times Branch daily. ondansetron 2018- Yes [id number] 4mg Take 1 [facility] 4 mg tablet 8-05 tablet by ity of 00:00: mouth [place] 00 every 8 Medical (eight) Branch hours as needed for Nausea and Vomiting (N/V). proMETHazin Yes [id number] 25mg Take 1 [facility] e 25 mg 8-05 tablet by ity of tablet 00:00: mouth [place] 00 every 6 Medical (six) Branch hours as needed for N/V alternatin g with Ondansetro n. HYDROcodone Yes [id number] 1{tbl} Take 1 [facility] -acetaminop 8-05 tablet by ity of hen 7.5-325 00:00: mouth [place] mg per 00 every 6 Medical tablet (six) Branch hours as needed (Pain scal 7-10). pantoprazol Yes [id number] 40mg Take 1 [facility] e 40 mg EC 8-05 tablet by ity of tablet 00:00: mouth 2 [place] 00 (two) Medical times Branch daily. ondansetron Yes [id number] 4mg Take 1 [facility] 4 mg tablet 8-05 tablet by ity of 00:00: mouth [place] 00 every 8 Medical (eight) Branch hours as needed for Nausea and Vomiting (N/V). proMETHazin Yes [id number] 25mg Take 1 [facility] e 25 mg 8-05 tablet by ity of tablet 00:00: mouth [place] 00 every 6 Medical (six) Branch hours as needed for N/V alternatin g with Ondansetro n. HYDROcodone Yes [id number] 1{tbl} Take 1 [facility] -acetaminop 8-05 tablet by ity of hen 7.5-325 00:00: mouth [place] mg per 00 every 6 Medical tablet (six) Branch hours as needed (Pain scal 7-10). pantoprazol Yes [id number] 40mg Take 1 [facility] e 40 mg EC 8-05 tablet by ity of tablet 00:00: mouth 2 [place] 00 (two) Medical times Branch daily. ondansetron Yes [id number] 4mg Take 1 [facility] 4 mg tablet 8-05 tablet by ity of 00:00: mouth [place] 00 every 8 Medical (eight) Branch hours as needed for Nausea and Vomiting (N/V). proMETHazin Yes [id number] 25mg Take 1 [facility] e 25 mg 8-05 tablet by ity of tablet 00:00: mouth [place] 00 every 6 Medical (six) Branch hours as needed for N/V alternatin g with Ondansetro n. HYDROcodone Yes [id number] 1{tbl} Take 1 [facility] -acetaminop 8-05 tablet by ity of hen 7.5-325 00:00: mouth [place] mg per 00 every 6 Medical tablet (six) Branch hours as needed (Pain scal 7-10). pantoprazol Yes [id number] 40mg Take 1 [facility] e 40 mg EC 8-05 tablet by ity of tablet 00:00: mouth 2 [place] 00 (two) Medical times Branch daily. ondansetron Yes [id number] 4mg Take 1 [facility] 4 mg tablet 8-05 tablet by ity of 00:00: mouth [place] 00 every 8 Medical (eight) Branch hours as needed for Nausea and Vomiting (N/V). proMETHazin Yes [id number] 25mg Take 1 [facility] e 25 mg 8-05 tablet by ity of tablet 00:00: mouth [place] 00 every 6 Medical (six) Branch hours as needed for N/V alternatin g with Ondansetro n. HYDROcodone Yes [id number] 1{tbl} Take 1 [facility] -acetaminop 8-05 tablet by ity of hen 7.5-325 00:00: mouth [place] mg per 00 every 6 Medical tablet (six) Branch hours as needed (Pain scal 7-10). pantoprazol Yes [id number] 40mg Take 1 [facility] e 40 mg EC 8-05 tablet by ity of tablet 00:00: mouth 2 [place] 00 (two) Medical times Branch daily. ondansetron Yes [id number] 4mg Take 1 [facility] 4 mg tablet 8-05 tablet by ity of 00:00: mouth [place] 00 every 8 Medical (eight) Branch hours as needed for Nausea and Vomiting (N/V). proMETHazin 2018- Yes [id number] 25mg Take 1 [facility] e 25 mg 8-05 tablet by ity of tablet 00:00: mouth [place] 00 every 6 Medical (six) Branch hours as needed for N/V alternatin g with Ondansetro n. HYDROcodone Yes [id number] 1{tbl} Take 1 [facility] -acetaminop 8-05 tablet by ity of hen 7.5-325 00:00: mouth [place] mg per 00 every 6 Medical tablet (six) Branch hours as needed (Pain scal 7-10). pantoprazol 2019- Yes [id number] 40mg Take 1 [facility] e 40 mg EC 8-05 tablet by ity of tablet 00:00: mouth 2 [place] 00 (two) Medical times Branch daily. ondansetron 2019-0 Yes [id number] 4mg Take 1 [facility] 4 mg tablet 8-05 tablet by ity of 00:00: mouth [place] 00 every 8 Medical (eight) Branch hours as needed for Nausea and Vomiting (N/V). proMETHazin 2019- Yes [id number] 25mg Take 1 [facility] e 25 mg 8-05 tablet by ity of tablet 00:00: mouth [place] 00 every 6 Medical (six) Branch hours as needed for N/V alternatin g with Ondansetro n. HYDROcodone 2018- Yes [id number] 1{tbl} Take 1 [facility] -acetaminop 8-05 tablet by ity of hen 7.5-325 00:00: mouth [place] mg per 00 every 6 Medical tablet (six) Branch hours as needed (Pain scal 7-10). pantoprazol Yes [id number] 40mg Take 1 [facility] e 40 mg EC 8-05 tablet by ity of tablet 00:00: mouth 2 00 (two) Medical times Branch daily. ondansetron 2018-0 Yes [id number] 4mg Take 1 [facility] 4 mg tablet 8-05 tablet by ity of 00:00: mouth [place] 00 every 8 Medical (eight) Branch hours as needed for Nausea and Vomiting (N/V). proMETHazin 2019-0 Yes [id number] 25mg Take 1 [facility] e 25 mg 8-05 tablet by ity of tablet 00:00: mouth [place] 00 every 6 Medical (six) Branch hours as needed for N/V alternatin g with Ondansetro n. HYDROcodone 2019-0 Yes [id number] 1{tbl} Take 1 [facility] -acetaminop 8-05 tablet by ity of hen 7.5-325 00:00: mouth [place] mg per 00 every 6 Medical tablet (six) Branch hours as needed (Pain scal 7-10). pantoprazol 2019-0 Yes [id number] 40mg Take 1 [facility] e 40 mg EC 8-05 tablet by ity of tablet 00:00: mouth 2 [place] 00 (two) Medical times Branch daily. ondansetron 2018- Yes [id number] 4mg Take 1 [facility] 4 mg tablet 8-05 tablet by ity of 00:00: mouth [place] 00 every 8 Medical (eight) Branch hours as needed for Nausea and Vomiting (N/V). proMETHazin Yes [id number] 25mg Take 1 [facility] e 25 mg 8-05 tablet by ity of tablet 00:00: mouth [place] 00 every 6 Medical (six) Branch hours as needed for N/V alternatin g with Ondansetro n. HYDROcodone Yes [id number] 1{tbl} Take 1 [facility] -acetaminop 8-05 tablet by ity of hen 7.5-325 00:00: mouth [place] mg per 00 every 6 Medical tablet (six) Branch hours as needed (Pain scal 7-10). pantoprazol Yes [id number] 40mg Take 1 [facility] e 40 mg EC 8-05 tablet by ity of tablet 00:00: mouth 2 (two) Medical times Branch daily. proMETHazin Yes [id number] 25mg Take 1 [facility] e 25 mg 8-05 tablet by ity of tablet 00:00: mouth [place] 00 every 6 Medical (six) Branch hours as needed for N/V alternatin g with Ondansetro n. HYDROcodone Yes [id number] 1{tbl} Take 1 [facility] -acetaminop 8-05 tablet by ity of hen 7.5-325 00:00: mouth [place] mg per 00 every 6 Medical tablet (six) Branch hours as needed (Pain scal 7-10). pantoprazol Yes [id number] 40mg Take 1 [facility] e 40 mg EC 8-05 tablet by ity of tablet 00:00: mouth 2 (two) Medical times Branch daily. proMETHazin Yes [id number] 25mg Take 1 [facility] e 25 mg 8-05 tablet by ity of tablet 00:00: mouth [place] 00 every 6 Medical (six) Branch hours as needed for N/V alternatin g with Ondansetro n. HYDROcodone 2018- Yes [id number] 1{tbl} Take 1 [facility] -acetaminop 8-05 tablet by ity of hen 7.5-325 00:00: mouth [place] mg per 00 every 6 Medical tablet (six) Branch hours as needed (Pain scal 7-10). pantoprazol Yes [id number] 40mg Take 1 [facility] e 40 mg EC 8-05 tablet by ity of tablet 00:00: mouth 2 [place] 00 (two) Medical times Branch daily. proMETHazin Yes [id number] 25mg Take 1 [facility] e 25 mg 8-05 tablet by ity of tablet 00:00: mouth [place] 00 every 6 Medical (six) Branch hours as needed for N/V alternatin g with Ondansetro n. HYDROcodone Yes [id number] 1{tbl} Take 1 [facility] -acetaminop 8-05 tablet by ity of hen 7.5-325 00:00: mouth [place] mg per 00 every 6 Medical tablet (six) Branch hours as needed (Pain scal 7-10). pantoprazol Yes [id number] 40mg Take 1 [facility] e 40 mg EC 8-05 tablet by ity of tablet 00:00: mouth 2 [place] 00 (two) Medical times Branch daily. proMETHazin Yes [id number] 25mg Take 1 [facility] e 25 mg 8-05 tablet by ity of tablet 00:00: mouth [place] 00 every 6 Medical (six) Branch hours as needed for N/V alternatin g with Ondansetro n. HYDROcodone Yes [id number] 1{tbl} Take 1 [facility] -acetaminop 8-05 tablet by ity of hen 7.5-325 00:00: mouth [place] mg per 00 every 6 Medical tablet (six) Branch hours as needed (Pain scal 7-10). pantoprazol Yes [id number] 40mg Take 1 [facility] e 40 mg EC 8-05 tablet by ity of tablet 00:00: mouth 2 [place] 00 (two) Medical times Branch daily. proMETHazin 2018- Yes [id number] 25mg Take 1 [facility] e 25 mg 8-05 tablet by ity of tablet 00:00: mouth [place] 00 every 6 Medical (six) Branch hours as needed for N/V alternatin g with Ondansetro n. HYDROcodone Yes [id number] 1{tbl} Take 1 [facility] -acetaminop 8-05 tablet by ity of hen 7.5-325 00:00: mouth [place] mg per 00 every 6 Medical tablet (six) Branch hours as needed (Pain scal 7-10). HYDROcodone 2021- No [id number] 1{tbl} Take 1 [facility] -acetaminop 8-05 05-27 tablet by it y of hen 7.5-325 00:00: 00:00 mouth [place] mg per 00 :00 every 6 Medical tablet (six) Branch hours as needed (Pain scal 7-10). pantoprazol 2020- No [id number] 40mg Take 1 [facility] e 40 mg EC 8-05 04-05 tablet by ity of tablet 00:00: 00:00 mouth 2 [place] 00 :00 (two) Medical times Branch daily. proMETHazin 2020- No [id number] 25mg Take 1 [facility] e 25 mg 8-05 04-05 tablet by ity of tablet 00:00: 00:00 mouth [place] 00 :00 every 6 Medical (six) Branch hours as needed for N/V alternatin g with Ondansetro n. pantoprazol 2020- No [id number] 40mg Take 1 [facility] e 40 mg EC 8-05 04-05 tablet by ity of tablet 00:00: 00:00 mouth 2 [place] 00 :00 (two) Medical times Branch daily. proMETHazin 2020- No [id number] 25mg Take 1 [facility] e 25 mg 8-05 04-05 tablet by ity of tablet 00:00: 00:00 mouth [place] 00 :00 every 6 Medical (six) Branch hours as needed for N/V alternatin g with Ondansetro n. HYDROcodone Yes 1{tbl} 1 tablet, [facility] -acetaminop 8-04 Oral, ity of hen (NORCO) 19:23: Q6HPRN, [place] as 10-325 mg 44 Starting Medica l tablet 1 [place] 11/16/18 Bran h tablet at 1423, Until Discontinu ed, Routine, Pain (scale 4-6), Pain (scale 7-10) citalopram Yes 10mg 10 mg, Unive rs (CELEXA) 8-04 Oral, ity of tablet 10 14:00: DAILY, [place] mg 00 First dose Medical on [place] [facility] 8/4/19 at 0900, Until Discontinu ed, Routine losartan 2019-0 Yes 100mg 100 mg, Unive rs (COZAAR) 8 Oral, ity of tablet 100 14:00: DAILY, [place] mg 00 First dose Medical on [facility] 11/16/18 at 0900, Until Discontinu ed lipase-prot 2018-0 Yes 3{capsu 3 capsule, Univers ease-amylas 11-16 le} Oral, TID ity of e (CREON) 13:00: MEALS, [place] 12,000-38,0 00 First dose Me dical 00 -60,000 on [facility] unit 11/16/18 at capsule 3 0800, capsule Until Discontinu ed FENTanyl PF 2018- 2019- No 25ug 25 mcg, Un you (SUBLIMAZE 11-16 Slow IV ity o f (PF)) 12:38: 19:23 Push, [place] injection 00 :28 Q6HPRN, Medical 25 mcg Starting [facility] 11/16/18 at 0738, Until [place] 11/16/18 at 1423, Routine, Pain (scale 7-10) baclofen 2018- Yes 10mg 10 mg, Univers (LIORESAL) 8 Oral, TID, ity of tablet 10 05:45: First dose [place] mg 00 on [facility] 11/16/18 at Branch 0045, Until Discontinu ed, Routine QUEtiapine 2018- Yes 100mg 100 mg, Uni vers (SEROQUEL) 8-04 Oral, QHS, ity of tablet 100 02:00: First dose [place] mg 00 on [facility] 11/15/18 at Branch 2100, Until Discontinu ed, Routine divalproex 2018-0 Yes 125mg 125 mg, Uni vers (DEPAKOTE) 8-04 Oral, QHS, ity of EC tablet 02:00: First dose [place] 125 mg 00 on [facility] 11/15/18 at Branch 2100, Until Discontinu ed, Routine proMETHazin 2019- No 25mg 25 mg, Uni vers e 8- 08- Oral, ity of (PHENERGAN) 01:15: 00:46 ONCE, 1 [place] tablet 25 00 :00 dose, [facility] Medic al mg 11/15/18 at Branch 2015, [...] ity of 22:50: 00:00 [place] 54 :00 [facility] Branch divalproex 2019- No Take by Uni vers sodium 11-15 mouth. ity of (DEPAKOTE 22:50: 00:00 [place] ORAL) 54 :00 [facility] HYDROcodone 2019- No 1{tbl} 1 tablet, Univers [...] 11-15 Oral, ity of (TYLENOL) 22:41: Q6HPRN, [place] tablet 650 56 Starting Medic al mg [...] Sat Medica l mg(2.5 mg 11/15/18 at [facility] h base)/3 mL 1130, [place] nebulizer [...] at Branch 1045, [place] traMADol 2019- No [id number] 50mg Take 1 Univers (ULTRAM) 50 10-31 [...] 3 ity o f 000- 00:00: (three) [place] 180,000 00 times Medical unit CpDR daily [...] 3 ity o f 000- 00:00: (three) [place] 180,000 00 times Medical unit CpDR daily [...] 3 ity o f 000- 00:00: (three) [place] 180,000 00 times Medical unit CpDR daily [...] 3 ity o f 000- 00:00: (three) [place] 180,000 00 times Medical unit CpDR daily with Bran ch meals. CREON 2018-0 Yes Take by Univers 36,000-114, 7-11 mouth 3 ity o f 000- 00:00: (three) [place] 180,000 00 times Medical unit CpDR daily with Bran ch meals. CREON 2018-0 Yes Take by Univers 36,000-114, 7-11 mouth 3 ity o f 000- 00:00: (three) [place] 180,000 00 times Medical unit CpDR daily [...] 3 ity o f 000- 00:00: (three) [place] 180,000 00 times Medical unit CpDR daily with Bran ch meals. CREON Yes Take by Univers 36,000-114, 7-11 mouth 3 ity o f 000- 00:00: (three) [place] 180,000 00 times Medical unit CpDR daily with Bran ch meals. CREON Yes Take by Univers 36,000-114, 7-11 mouth 3 ity o f 000- 00:00: (three) [place] 180,000 00 times Medical unit CpDR daily with Bran ch meals. CREON 2020- No Take by Univers 36,000-114, 7-11 04-05 mouth 3 ity of 000- 00:00: 00:00 (three) [place] 180,000 00 :00 times Medical unit CpDR daily with Bran ch meals. CREON 2020- No Take by Univers 36,000-114, 7-11 04-05 mouth 3 ity of 000- 00:00: 00:00 (three) [place] 180,000 00 :00 times Medical unit CpDR daily with Bran ch meals. dicyclomine 2018- 2019- No [id number] 20mg Take 1 Univers (BENTYL) 20 5-28 08-03 tablet by it y of mg tablet 00:00: 00:00 mouth 4 [place] :[place] (four) Medical times Branch daily as needed for Abdominal pain. ondansetron 2019- No [id number] 4mg Take 1 [facility] (ZOFRAN) 4 09-09 08-03 tablet by ity of mg tablet 00:00: 00:00 mouth [place] 00 :00 every 8 Medical (eight) Branch hours as needed for Nausea and Vomiting (N/V). amLODIPine 2018- No [id number] 5mg Take 2 Univers 2.5 mg 07-21- tablets by ity of tablet 00:00: 00:00 mouth at [place] 00 :00 bedtime. Medical Branch proMETHazin 2019- No [id number] 25mg Take 1 Univers e 25 mg 07-21- tablet by ity of tablet 00:00: 00:00 mouth [place] 00 :00 every 6 Medical (six) Branch hours as needed for Nausea and Vomiting (N/V). famotidine 2017-04- No 20mg Take 1 Univ ers (PEPCID) 20 2- tablet by it y of mg tablet 00:00: 00:00 mouth 2 [place] 00 :00 (two) Medical times Branch daily. furosemide 2015-04- No 20mg Take 1 Univ ers (LASIX) 20 05-01- tablet by ity of mg tablet 00:00: 00:00 mouth [place] 00 :00 every Medical morning. Branch KCL 2015-04 2019- No 20meq Take 1 Univers (KLOR-CON 05-01- [...] [place] 1 tablet [facility] Seroquel XR Seroquel XR Yes [place] 1 tablet Common in the [facility] evening [facility] Phenergan Phenergan Yes [place] one tablet Common [facility] Doxycycline Doxycycline Yes [place] 1 capsule Common Hyclate Hyclate [facility] Azithromyci Azithromyci Yes [place] 2 tablets Common n n on the [facility] first day, - [facility] then [address] [facility] daily for Medical 4 days Center Robaxin-750 Robaxin-750 Yes [place] 1 tablet Common [facility] Flonase Flonase Yes [place] 2 spray in Common each [facility] nostril [facility] Diazepam Diazepam Yes [place] 1 tablet Common as needed [facility] PredniSONE PredniSONE Yes [place] 2 tablet Common daily x 5 days then - [facility] one tablet [facility] daily x 5 [facility] Gabapentin Gabapentin Yes [place] 1 capsule Common [facility] Losartan Losartan Yes [place] TAKE 1 Co [facility]mon Potassium Potassium TABLET BY Spirit MOUTH - [facility] EVERY DAY [facility] Losartan Losartan No 1{table QD Losartan [...] 300 MG 300 MG Promethazin Promethazin No 1{table BID Promethazi e HCl 25 MG e HCl 25 MG t_as_ne ne HCl 25 eded} MG HYDROcodone HYDROcodone No 1{table QID HYDROcodon [...] 100 MG 100 MG Promethazin Promethazin No 1{table BID Promethazi e [...] 100 MG 100 MG Promethazin Promethazin No 1{table BID Promethazi e [...] Potassium 100 MG 100 MG 100 MG Gabapentin Gabapentin No Gabapentin 300 MG 300 MG 300 MG HYDROcodone HYDROcodone No 1{table QID HYDROcodon -Acetaminop -Acetaminop t_as_ne e-Acetamin hen 7.5-325 hen 7.5-325 eded} ophen MG MG 7.5-325 MG Promethazin Promethazin No 1{table BID Promethazi e HCl 25 MG e HCl 25 MG t_as_ne ne HCl 25 eded} MG Carvedilol Carvedilol No 1{table BID Carvedilol 12.5 MG 12.5 MG t_with_ 12.5 MG food} Losartan Losartan No 1{table QD Losartan Potassium Potassium t} Potassium 100 MG 100 MG 100 MG Gabapentin Gabapentin No Gabapentin 300 MG 300 MG 300 MG HYDROcodone HYDROcodone No 1{table QID HYDROcodon -Acetaminop -Acetaminop t_as_ne e-Acetamin hen 7.5-325 hen 7.5-325 eded} ophen MG MG 7.5-325 MG Promethazin Promethazin No 1{table BID Promethazi e HCl 25 MG e HCl 25 MG t_as_ne ne HCl 25 eded} MG Carvedilol Carvedilol No 1{table BID Carvedilol 12.5 MG 12.5 MG t_with_ 12.5 MG food} Losartan Losartan No 1{table QD Losartan Potassium Potassium t} Potassium 100 MG 100 MG 100 MG Carvedilol Carvedilol No 1{table BID Carvedilol 12.5 MG 12.5 MG t_with_ 12.5 MG food} tiZANidine tiZANidine No 1{table BID tiZANidine HCl 2 MG HCl 2 MG t_as_ne HCl 2 MG eded} HYDROcodone HYDROcodone No 1{table QID HYDROcodon -Acetaminop -Acetaminop t_as_ne e-Acetamin hen 7.5-325 hen 7.5-325 eded} ophen MG MG 7.5-325 MG Promethazin Promethazin No 1{table BID Promethazi e HCl 25 MG e HCl 25 MG t_as_ne ne HCl 25 eded} MG Gabapentin Gabapentin No Gabapentin 300 MG 300 MG 300 MG tiZANidine tiZANidine 3- No 1{table BID tiZANidine HCl 2 MG HCl 2 MG -08 t_as_ne HCl 2 MG 00:00 eded} :00 tiZANidine tiZANidine 3- No 1{table BID tiZANidine HCl 2 MG HCl 2 MG -08 t_as_ne HCl 2 MG 00:00 eded} :00 tiZANidine tiZANidine 3- No 1{table BID tiZANidine HCl 2 MG HCl 2 MG -08 t_as_ne HCl 2 MG 00:00 eded} :00 tiZANidine tiZANidine 3- No 1{table BID tiZANidine HCl 2 MG HCl 2 MG - t_as_ne HCl 2 MG 00:00 eded} :00 tiZANidine tiZANidine 2022- No 1{table BID tiZANidine HCl 2 MG HCl 2 MG 04-22 t_as_ne HCl 2 MG 00:00 eded} :00 tiZANidine tiZANidine 2021- No BID tiZANidine HCl 2 MG HCl 2 MG 12-13 HCl 2 MG 00:00 :00 Immunizations Ordered Filled Immunization Date Status Comments [facility] Immunization Name Name Flucelvax - Flucelvax - 2021-04-03 Completed [facility] 10:16:00 [facility] Flucelvax - Flucelvax - 2021-04-03 Completed [facility] multidose vial 10:16:00 [facility] Flucelvax - Flucelvax - 2021-04-03 Completed [facility] multidose vial 10:16:00 [facility] Flucelvax - Flucelvax - 2021-04-03 Completed [facility]ial multidose vial 10:16:00 [facility] Flucelvax - Flucelvax - 2021-04-03 Completed [facility] multidose vial 10:16:00 [facility] Flucelvax - Flucelvax - 2021-04-03 Completed [facility] multidose vial 10:16:00 [facility] Flucelvax - Flucelvax - 2021-04-03 Completed [facility]ial multidose vial 10:16:00 [facility] Flucelvax - Flucelvax - 2021-04-03 Completed [facility]ial multidose vial 10:16:00 [facility] Flucelvax - Flucelvax - 2021-04-03 Completed [facility]ial multidose vial 10:16:00 [facility] Flucelvax - Flucelvax - 2021-04-03 Completed [facility] multidose [facility]ial multidose vial 10:16:00 [facility] Flucelvax - Flucelvax - 2021-04-03 Completed [facility] multidose [facility]ial multidose vial 10:16:00 [facility] Flucelvax - Flucelvax - 2021-04-03 Completed [facility] multidose vial multidose vial 10:16:00 [facility] Flucelvax - Flucelvax - 2021-04-03 Completed [facility] multidose vial multidose vial 10:16:00 [facility] Flucelvax - Flucelvax - 2021-04-03 Completed [facility]ose [facility]ial multidose vial 10:16:00 [facility] Flucelvax - Flucelvax - 2021-04-03 Completed [facility]ial multidose vial 10:16:00 [facility] Flucelvax - Flucelvax - 2021-04-03 Completed [facility]ial multidose vial 10:16:00 [facility] Flucelvax - Flucelvax - 2021-04-03 Completed [facility]ial multidose vial 10:16:00 [facility] Flucelvax - Flucelvax - 2021-04-03 Completed [facility]ial multidose vial 10:16:00 [facility] Flucelvax - Flucelvax - 2021-04-03 Completed [facility]ose [facility]ial multidose vial 10:16:00 [facility] Flucelvax - Flucelvax - 2021-04-03 Completed [facility] multidose vial multidose vial 10:16:00 [facility] Flucelvax - Flucelvax - 2021-04-03 Completed [facility]ose vial multidose vial 10:16:00 [facility] Flucelvax - Flucelvax - 2021-04-03 Completed [facility]ial multidose vial 10:16:00 [facility] Flucelvax - Flucelvax - 2021-04-03 Completed [facility] multidose vial multidose vial 10:16:00 [facility] Flucelvax - Flucelvax - 2021-04-03 Completed [facility] multidose vial multidose vial 10:16:00 [facility] Flucelvax - Flucelvax - 2021-04-03 Completed [facility] multidose vial multidose vial 10:16:00 [facility] Flucelvax - Flucelvax - 2021-04-03 Completed [facility]ose [facility]ial multidose vial 10:16:00 [facility] Flucelvax - Flucelvax - 2021-04-03 Completed [facility] multidose vial multidose vial 10:16:00 [facility] Flucelvax - Flucelvax - 2021-04-03 Completed [facility]ose [facility]ial multidose vial 10:16:00 [facility] Flucelvax - Flucelvax - 2021-04-03 Completed [facility]ial multidose vial 10:16:00 [facility] Flu Injectable MDCK 2021-04-03 Completed [facility] Quadriv[facility] 00:[facility] [place] [facility] Flu Injectable MDCK 2021-04-03 Completed [facility] Quadrivalent 00:00:[facility] [place] [facility] Flu Injectable MDCK 2021-04-03 Completed [facility]riv[facility] 00[facility]00[facility]00 [facility] Flu Injectable MDCK 2021-04-03 Completed [facility] Quadrivalent 00:00:00 [facility] Flu Injectable MDCK 2021-04-03 Completed [facility] Quadrivalent 00:00:00 [facility] SARS-COV-2 COVID-19 2021-03-25 Completed [facility]ive rs[facility] of MODERNA BOOSTER 00:00:00 [place] [facility] VACC[facility] SARS-COV-2 COVID-19 2021-03-25 Completed [facility]ive rs[facility] of MODERNA BOOSTER 00:00:00 [place] [facility] V[facility] SARS-COV-2 COVID-19 2021-03-25 Completed [facility]ive rsity of MODERNA BOOSTER 00:00:00 [place] [facility] VACCINE [facility] SARS-COV-2 COVID-19 2021-03-25 [...] rsity of MODERNA 0.25ML 00:00:00 [place] [facility] VACCINE Branch SARS-COV-2 COVID-19 2021-03-25 Completed [...] Unive rsity of MODERNA VACCINE 00:00:[address] [place] [facility] ical Branch SARS-COV-2 COVID-19 2020-07-19 Completed Unive rsity of MODERNA VACCINE 00:00:[address] [place] [facility] ical Branch SARS-COV-2 COVID-19 2020-07-19 Completed [facility] rs[facility] of MODERNA VACCINE 00:00:00 [place] [facility] SARS-COV-2 COVID-19 2020-07-19 Completed Unive rsity of MODERNA VACCINE 00:00:[address] [place] [facility] ical Branch SARS-COV-2 COVID-19 2020-07-19 Completed [facility]ive rsity of MODERNA VACCINE 00:00:[address] [place] [facility] ical Branch SARS-COV-2 COVID-19 2020-07-19 Completed Unive rsity of MODERNA VACCINE 00:00:[address] [place] [facility] ical Branch SARS-COV-2 COVID-19 2020-07-19 Completed [facility] of MODERNA VACCINE 00:00:00 [place] [facility] SARS-COV-2 COVID-19 2020-07-19 Completed Unive rsity of MODERNA VACCINE 00:00:[address] [place] [facility] ical Branch SARS-COV-2 COVID-19 2020-07-19 Completed [facility]ive rs[facility] of MODERNA VACCINE 00:00:[address] [place] [facility] ical Branch SARS-COV-2 COVID-19 2020-07-19 Completed [facility]ive rs[facility] of MODERNA VACCINE 00:00:[address] [place] [facility] ical Branch SARS-COV-2 COVID-19 2020-07-19 Completed [...] Unive rsity of MODERNA VACCINE 00:00:[address] [place] [facility] ical Branch SARS-COV-2 COVID-19 2020-05-22 Completed [...] Unive rsity of MODERNA 12+ YRS 00:00:00 [facility] VACCINE Branch SARS-COV-2 COVID-19 2020-05-22 Completed Unive rsity of MODERNA 12+ YRS 00:00:00 [facility] Branch Influenza TIV (IM) 2013-02-[address] [facility] 00:00:00 [facility] [place] Influenza TIV (IM) 2013-02-[address] [facility] 00:00:00 [facility] [place] Influenza TIV (IM) 2013-02-[address] [facility] 00:00:00 [facility] Center Influenza TIV (IM) 2013-02-[address] [facility] 00[facility]00:00 [facility] Influenza TIV (IM) 2013-02-[address] [facility] 00:00:00 [facility] Influenza TIV (IM) 2013-02-[address] [facility] 00:00:00 [facility] Influenza Virus 2013-02-27 Completed [facility] [...] HEIGHT 2020-08-26 152.4 cm 02:50:00 Systolic blood 2022-07-31 103 mm[Hg] University of pressure 20:07:00 [facility] Diastolic blood 2022-07-31 73 mm[Hg] University o f pressure 20:07:00 [facility] Heart rate 2022-07-31 60 /min University of 20:07:00 [facility] Body temperature 2022-07-31 36.22 Roro University of 20:07:00 [facility] Respiratory rate 2022-07-31 14 /min University of 20:07:00 [facility] Oxygen saturation 2022-07-31 99 /min University of in Arterial blood 20:07:00 [facility] by Pulse oximetry Branch Body weight 2022-07-31 56.473 kg University of 14:00:00 [facility] BMI 2022-07-31 24.31 kg/m2 University of 14:00:00 [facility] Body height 2022-07-31 152.4 cm University of 03:13:00 [facility] Systolic blood 2022-04-26 144 mm[Hg] University of pressure 18:08:00 [facility] Diastolic blood 2022-04-26 97 mm[Hg] University o f pressure 18:08:00 [facility] Heart rate 2022-04-26 66 /min University of 18:08:00 [facility] Body temperature 2022-04-26 35.78 Roro University of 18:08:00 [facility] Respiratory rate 2022-04-26 18 /min University of 18:08:00 [facility] Oxygen saturation 2022-04-26 99 /min University of in Arterial blood 18:08:00 [facility] by Pulse oximetry Branch Body weight 2022-04-26 66.361 kg University of 09:30:00 [facility] BMI 2022-04-26 28.57 kg/m2 University of 09:30:00 [facility] Body height 2022-04-26 152.4 cm University of 03:57:00 [facility] Systolic blood 2022-04-08 120 mm[Hg] [facility] pressure 19:03:00 [facility] Diastolic blood 2022-04-08 80 mm[Hg] University o f pressure 19:03:00 [facility] Heart rate 2022-04-08 90 /min University of 19:03:00 [facility] Body temperature 2022-04-08 36.89 Roro University of 19:03:00 [facility] Respiratory rate 2022-04-08 20 /min University of 19:03:00 [facility] Body height 2022-04-08 152.4 cm University of 19:03:00 [facility] Body weight 2022-04-08 72.576 kg University of 19:03:00 [facility] BMI 2022-04-08 31.25 kg/m2 University of 19:03:00 [facility] Oxygen saturation 2022-04-08 100 /min [facility] in Arterial blood 19:03:00 [facility] by Pulse oximetry Branch height 2022-02-22 60 [in_i] [facility] weight 2022-02-22 151.6 [lb_av] [facility] 14:[facility]: [facility] temperature 2022-02-22 97.2 [degF] [facility] 14:00: [facility] bmi 2022-02-22 29.6 kg/m2 [facility] 14:00:00 [facility] blood pressure 2022-02-22 132 mm[Hg] [facility] - systolic 14:00: [facility] blood pressure 2022-02-22 84 mm[Hg] [facility] - diastolic 14:00: [facility] Systolic blood 2022-02-06 147 mm[Hg] University of pressure 21:55:00 [facility] Diastolic blood 2022-02-06 102 mm[Hg] University o f pressure 21:55:00 [facility] Heart rate 2022-02-06 82 /min University of 21:55:00 [facility] Body temperature 2022-02-06 36.28 Roro University of 21:55:00 [facility] Respiratory rate 2022-02-06 18 /min University of 21:55:00 [facility] Oxygen saturation 2022-02-06 99 /min [facility] in Arterial blood 21:55:00 [facility] by Pulse oximetry [place] Body weight 2022-02-06 75.479 kg University of 08:24:00 [facility] BMI 2022-02-06 32.50 kg/m2 University of 08:24:00 [facility] Body height 2022-02-03 152.4 cm University of 22:37:00 [facility] Systolic blood 2022-01-27 141 mm[Hg] [facility] pressure 00:37:00 [facility] Diastolic blood 2022-01-27 92 mm[Hg] [facility] pressure 00:37:00 [facility] Heart rate 2022-01-27 73 /min University of 00:37:00 [facility] Respiratory rate 2022-01-27 16 /min University of 00:37:00 [facility] Oxygen saturation 2022-01-27 98 /min University of in Arterial blood 00:37:00 [facility] brandy by Pulse oximetry Branch Body weight 2022-01-26 72.122 kg University of 20:27:00 [facility] Branch BMI 2022-01-26 31.05 kg/m2 University of 20:27:00 [facility] Body temperature 2022-01-26 37 Roro University of 20:26:00 [facility] Body height 2022-01-26 152.4 cm University of 20:26:00 [facility] Systolic blood 2021-11-02 159 mm[Hg] University of pressure 13:00:00 [facility] Diastolic blood 2021-11-02 98 mm[Hg] University o f pressure 13:00:00 [facility] Heart rate 2021-11-02 90 /min University of 13:00:00 [facility] Respiratory rate 2021-11-02 14 /min University of 13:00:00 [facility] Oxygen saturation 2021-11-02 97 /min University of in Arterial blood 13:00:00 [facility] brandy by Pulse oximetry Branch Body temperature 2021-11-02 37.06 Roro University of 09:49:00 [facility] Body height 2021-11-02 152.4 cm University of 09:49:00 [facility] Body weight 2021-11-02 77.111 kg University of 09:49:00 [facility] BMI 2021-11-02 33.20 kg/m2 University of 09:49:00 [facility] Heart rate 2021-09-29 63 /min University of 15:42:00 [facility] Respiratory rate 2021-09-29 18 /min University of 15:42:00 [facility] Oxygen saturation 2021-09-29 99 /min [facility] of in Arterial blood 15:42:00 [facility] brandy by Pulse oximetry Branch Systolic blood 2021-09-29 124 mm[Hg] [facility] of pressure 15:40:00 [facility] Branch Diastolic blood 2021-09-29 85 mm[Hg] University o f pressure 15:40:00 [facility] Body temperature 2021-09-29 36.39 Roro University of 14:41:00 [facility] Body height 2021-09-20 152.4 cm University of 15:00:00 [facility] Body weight 2021-09-20 78.5 kg University of 15:00:00 [facility] BMI 2021-09-20 33.80 kg/m2 University of 15:00:00 [facility] Systolic blood 2021-09-29 138 mm[Hg] [facility] of pressure 15:15:00 [facility] Diastolic blood 2021-09-29 80 mm[Hg] University o [facility] pressure 15:15:00 [facility] Heart rate 2021-09-29 63 /min [facility] 15:15:00 [facility] Respiratory rate 2021-09-29 11 /min University 15:15:00 [facility] Oxygen saturation 2021-09-29 99 /min [facility] Arterial blood 15:15:00 [facility] by Pulse oximetry [place] Body temperature 2021-09-29 36.39 Roro [facility] 14:41:00 [facility] Body height 2021-09-20 152.4 cm University 15:00:00 [facility] Body weight 2021-09-20 78.5 kg [facility] 15:00:00 [facility] BMI 2021-09-20 33.80 kg/m2 University of 15:00:00 [facility] Respiratory rate 2021-09-29 10 /min [facility] 14:31:00 [facility] height 2021-09-21 62.00 [in_i] [facility] 09:20:00 [facility] weight 2021-09-21 179 [lb_av] [facility] Spirit - 09:20:00 [facility] temperature 2021-09-21 97.4 [degF] [facility] 09:20:00 [facility] bmi 2021-09-21 32.74 kg/m2 [facility] 09:20:00 [facility] oximetry 2021-09-21 100 % [facility] Spirit - 09:20:00 [facility] respiratory rate 2021-09-21 15 /min [facility] 09[facility]20:00 [facility] blood pressure 2021-09-21 130 mm[Hg] [facility] - systolic 09:20:00 [facility] blood pressure 2021-09-21 82 mm[Hg] [facility] - diastolic 09:20:00 [facility] Systolic blood 2021-09-08 112 mm[Hg] University of pressure 21:35:00 [facility] Diastolic blood 2021-09-08 77 mm[Hg] University o f pressure 21:35:00 [facility] Heart rate 2021-09-08 64 /min University of 21:35:00 [facility] Body temperature 2021-09-08 36.22 Roro University of 21:35:00 [facility] Respiratory rate 2021-09-08 18 /min University of 21:35:00 [facility] Oxygen saturation 2021-09-08 100 /min [facility] in Arterial blood 21:35:00 [facility] brandy by Pulse oximetry Branch Body height 2021-09-02 152.4 cm University of 00:59:00 [facility] Body weight 2021-09-02 78.5 kg University of 00:59:00 [facility] BMI 2021-09-02 33.80 kg/m2 University of 00:59:00 [facility] Systolic blood 2021-08-27 169 mm[Hg] University of pressure 20:00:00 [facility] Diastolic blood 2021-08-27 103 mm[Hg] University o f pressure 20:00:00 [facility] Heart rate 2021-08-27 66 /min University of 20:00:00 [facility] Respiratory rate 2021-08-27 11 /min University of 20:00:00 [facility] Oxygen saturation 2021-08-27 98 /min [facility] in Arterial blood 20:00:00 [facility] by Pulse oximetry [place] Body temperature 2021-08-27 36.17 Roro Simultaneous University of 15:50:00 filing. User may [place] [facility] not have seen Branch previous data. Body height 2021-08-27 152.4 cm University of 15:50:00 [facility] Body weight 2021-08-27 81.647 kg University of 15:50:00 [facility] BMI 2021-08-27 35.15 kg/m2 University of 15:50:00 [facility] height 2021-08-07 62.00 [in_i] [facility] 11:40:00 [facility] weight 2021-08-07 176.2 [lb_av] [facility] 11:40:00 [facility] temperature 2021-08-07 98.0 [degF] [facility] 11:40:00 [facility] bmi 2021-08-07 32.22 kg/m2 [facility] 11:40:00 [facility] oximetry 2021-08-07 100 % [facility] - 11:40:00 [facility] respiratory rate 2021-08-07 18 /min [facility] - 11:40:00 [facility] blood pressure 2021-08-07 132 mm[Hg] [facility] - systolic 11:40:00 [facility] blood pressure 2021-08-07 82 mm[Hg] [facility] - diastolic 11:40:00 [facility] Systolic blood 2021-07-29 154 mm[Hg] [facility] of pressure 16:16:00 [facility] Diastolic blood 2021-07-29 91 mm[Hg] University o f pressure 16:16:00 [facility] Heart rate 2021-07-29 92 /min University of 16:16:00 [facility] Body temperature 2021-07-29 36.44 Roro University of 16:16:00 [facility] Respiratory rate 2021-07-29 16 /min University of 16:16:00 [facility] Oxygen saturation 2021-07-29 98 /min [facility] in Arterial blood 16:16:00 [facility] by Pulse oximetry Branch Body weight 2021-07-28 86.63 kg University of 18:00:00 [facility] BMI 2021-07-28 37.30 kg/m2 University of 18:00:00 [facility] Body height 2021-07-24 152.4 cm University of 00:00:00 [facility] Systolic blood 2021-07-04 141 mm[Hg] [facility] of pressure 18:05:00 [facility] Diastolic blood 2021-07-04 95 mm[Hg] [facility] o [facility] pressure 18:05:00 [facility] Heart rate 2021-07-04 64 /min University of 18:05:00 [facility] Respiratory rate 2021-07-04 11 /min [facility] 18:05:00 [facility] Oxygen saturation 2021-07-04 96 /min [facility] in Arterial blood 18:05:00 [place] [facility] P[facility] Body temperature 2021-07-04 36.39 Roro University of 17:48:00 [facility] Body height 2021-07-03 152.4 cm University of 19:51:00 [facility] Body weight 2021-07-03 81.6 kg University 19:51:00 [facility] BMI 2021-07-03 35.13 kg/m2 University 19:51:00 [facility] Systolic blood 2021-07-04 141 mm[Hg] [facility] of pressure 15:45:00 [facility] Diastolic blood 2021-07-04 97 mm[Hg] [facility] o [facility] pressure 15:45:00 [facility] Heart rate 2021-07-04 81 /min [facility] 15:45:00 [facility] Body temperature 2021-07-04 36.39 Roro [facility] 15:45:00 [facility] Respiratory rate 2021-07-04 20 /min [facility] 15:45:00 [facility] Oxygen saturation 2021-07-04 100 /min [facility] Arterial blood 15:45:00 [facility] by Pulse oximetry [place] Body height 2021-07-03 152.4 cm [facility] 19:51:00 [facility] Body weight 2021-07-03 81.6 kg [facility] 19:51:00 [facility] BMI 2021-07-03 35.13 kg/m2 University 19:51:00 [facility] height 2021-06-15 62.00 [in_i] [facility] 08:40:00 [facility] weight 2021-06-15 189 [lb_av] [facility] 08:40:00 [facility] temperature 2021-06-15 97.3 [degF] [facility] - 08:40:00 [facility] bmi 2021-06-15 34.56 kg/m2 [facility] - 08:40:00 [facility] oximetry 2021-06-15 98 % [facility] - 08:40:00 [facility] respiratory rate 2021-06-15 18 /min [facility] - 08:40:00 [facility] blood pressure 2021-06-15 148 mm[Hg] [facility] - systolic 08:40:00 [facility] blood pressure 2021-06-15 92 mm[Hg] [facility] - diastolic 08:40:00 [facility] Systolic blood 2021-06-04 164 mm[Hg] [facility] pressure 04:00:00 [facility] Diastolic blood 2021-06-04 104 mm[Hg] [facility] pressure 04:00:00 [facility] Heart rate 2021-06-04 64 /min [facility] of 04:00:00 [facility] Oxygen saturation 2021-06-04 98 /min [facility] in Arterial blood 04:00:00 [facility] by Pulse oximetry Branch Respiratory rate 2021-06-04 11 /min University of 03:00:00 [facility] Body temperature 2021-06-03 35.89 Roro University of 19:49:00 [facility] Body height 2021-06-03 152.4 cm University of 19:49:00 [facility] Body weight 2021-06-03 81.647 kg [facility] 19:49:00 [facility] [facility] BMI 2021-06-03 35.15 kg/m2 [facility] of 19:49:00 [facility] Systolic blood 2021-05-22 151 mm[Hg] University of pressure 07:00:00 [facility] Diastolic blood 2021-05-22 97 mm[Hg] University o f pressure 07:00:00 [facility] Heart rate 2021-05-22 93 /min University of 07:00:00 [facility] Oxygen saturation 2021-05-22 96 /min University of in Arterial blood 07:00:00 [facility] by Pulse oximetry Branch Body temperature 2021-05-22 37.61 [place] University of 05:24:00 [facility] Respiratory rate 2021-05-22 20 /min University of 05:24:00 [facility] Body height 2021-05-22 152.4 cm University of 05:24:00 [facility] Body weight 2021-05-22 81.647 kg University of 05:24:00 [facility] BMI 2021-05-22 35.15 kg/m2 University of 05:24:00 [facility] Systolic blood 2021-05-18 139 mm[Hg] [facility] pressure 15:16:00 [facility] Diastolic blood 2021-05-18 86 mm[Hg] [facility] o f pressure 15:16:00 [facility] Heart rate 2021-05-18 85 /min [facility] 15:16:00 [facility] Body temperature 2021-05-18 36.39 [place] University [facility] 15:16:00 [facility] Respiratory rate 2021-05-18 18 /min University of 15:16:00 [facility] Body height 2021-05-18 152.4 cm University of 15:16:00 [facility] Body weight 2021-05-18 87.862 kg University of 15:16:00 [facility] BMI 2021-05-18 37.83 kg/m2 University [facility] 15:16:00 [facility] Oxygen saturation 2021-05-18 97 /min [facility] in Arterial blood 15:16:00 [facility] oxim[facility] Systolic blood 2021-04-15 163 mm[Hg] [facility] pressure 19:38:00 [facility] Diastolic blood 2021-04-15 105 mm[Hg] [facility] o f pressure 19:38:00 [facility] Heart rate 2021-04-15 98 /min [facility] 19:38:00 [facility] Body temperature 2021-04-15 37.06 [place] [facility] 19:38:00 [facility] Respiratory rate 2021-04-15 18 /min [facility] 19:38:00 [facility] Body height 2021-04-15 152.4 cm [facility] 19:38:00 [facility] Body weight 2021-04-15 81.647 kg University of 19:38:00 [facility] BMI 2021-04-15 35.15 kg/m2 [facility] 19:38:00 [facility] Oxygen saturation 2021-04-15 97 /min [facility] in Arterial blood 19:38:00 [facility]ulse [facility]xim[facility] Systolic blood 2021-04-15 140 mm[Hg] [facility] pressure 19:20:00 [facility] Diastolic blood 2021-04-15 98 mm[Hg] [facility] pressure 19:20:00 [facility] Heart rate 2021-04-15 109 /min [facility] 19:20:00 [facility] Body temperature 2021-04-15 36.94 [place] [facility] 19:20:00 [facility] Respiratory rate 2021-04-15 17 /min [facility] 19:20:00 [facility] Body weight 2021-04-15 84.596 kg University of 19:20:00 [facility] BMI 2021-04-15 36.42 kg/m2 [facility] 19:20:00 [facility] Oxygen saturation 2021-04-15 98 /min [facility] in Arterial blood 19:20:00 [place] [facility] Pulse oxim[facility] height 2021-04-03 62.00 [in_i] Common [facility] - 09:00:00 [facility] weight 2021-04-03 189 [lb_av] [facility]00 [facility] temperature 2021-04-03 97.2 [degF] [facility] 09:00:00 [facility] bmi 2021-04-03 34.56 kg/m2 Common [facility] - 09:00:00 [facility] oximetry 2021-04-03 95 % Common [facility] - 09:00:00 [facility] blood pressure 2021-04-03 138 mm[Hg] [facility] - systolic 09:00:00 [facility] blood pressure 2021-04-03 48 mm[Hg] [facility] - diastolic 09:00:00 [facility] Systolic blood 2021-03-26 138 mm[Hg] [facility] pressure 03:00:00 [facility] Diastolic blood 2021-03-26 89 mm[Hg] [facility] o f pressure 03:00:00 [facility] Heart rate 2021-03-26 75 /min [facility] 03:00:00 [facility] Respiratory rate 2021-03-26 12 /min [facility] 03:00:00 [facility] Oxygen saturation 2021-03-26 99 /min [facility] in Arterial blood 03:00:00 [facility] Pulse oximetry [place] Body temperature 2021-03-26 37 [place] [facility] 01:02:09 [facility] Body height 2021-03-26 152.4 cm University 00:10:00 [facility] Body weight 2021-03-26 80.74 kg University 00:10:00 [facility] BMI 2021-03-26 34.76 kg/m2 University 00:10:00 [facility] Systolic blood 2021-03-21 173 mm[Hg] [facility] pressure 01:28:00 [facility] Diastolic blood 2021-03-21 104 mm[Hg] [facility] o f pressure 01:28:00 [facility] Heart rate 2021-03-21 74 /min University 01:28:00 [facility] Respiratory rate 2021-03-21 22 /min University 01:28:00 [facility] Oxygen saturation 2021-03-21 96 /min [facility] in Arterial blood 01:28:00 [place] [facility] Pulse oxim[facility] Body temperature 2021-03-20 37.17 [place] [facility] 21:59:00 [facility] Body weight 2021-03-20 81.647 kg University [facility] 21:59:00 [facility] BMI 2021-03-20 35.15 kg/m2 University of 21:59:00 [facility] Systolic blood 2021-02-13 159 mm[Hg] [facility] pressure 02:02:00 [facility] Diastolic blood 2021-02-13 95 mm[Hg] [facility] o f pressure 02:02:00 [facility] Body temperature 2021-02-13 36.67 [place] [facility] 02:02:00 [facility] Respiratory rate 2021-02-13 17 /min [facility] 02:02:00 [facility] Oxygen saturation 2021-02-13 93 /min [facility] in Arterial blood 02:02:00 [facility] o[facility] Heart rate 2021-02-13 73 /min [facility] 01:00:00 [facility] Body height [...] Center Heart rate 2021-01-18 86 /min [facility] 05:45:00 [facility] Respiratory rate 2021-01-18 14 /min [facility] 05:45:00 [facility] Oxygen saturation 2021-01-18 99 /min [facility] in Arterial blood 05:45:00 [place] [facility]xim[facility] Body temperature 2021-01-18 37.06 [place] [facility] 02:32:00 [facility] Body height 2021-01-18 152.4 cm University of 02:32:00 [facility] Body weight 2021-01-18 86.183 kg University of 02:32:00 [facility] BMI 2021-01-18 37.11 kg/m2 [facility] 02:32:00 [facility] Systolic blood 2021-01-07 117 mm[Hg] [facility] pressure 16:25:00 [facility] Diastolic blood 2021-01-07 79 mm[Hg] University o f pressure 16:25:00 [facility] Heart rate 2021-01-07 85 /min [facility] 16:25:00 [facility] Body temperature 2021-01-07 36.89 [place] [facility] 16:25:00 [facility] Respiratory rate 2021-01-07 16 /min [facility] 16:25:00 [facility] Body height 2021-01-07 152.4 cm [facility] 16:25:00 [facility] Body weight 2021-01-07 77.111 kg University of 16:25:00 [facility] BMI 2021-01-07 33.20 kg/m2 University of 16:25:00 [facility] Oxygen saturation 2021-01-07 96 /min [place] in Arterial blood 16:25:00 [facility] by Pulse oximetry Branch Systolic blood 2020-12-30 [...] /min [facility] in Arterial blood 22:35:00 [facility] by Pulse oximetry Branch Body temperature 2020-12-30 37.44 [place] [facility] 18:12:00 [facility] Body height 2020-12-30 152.4 cm University of 18:12:00 [facility] Body weight 2020-12-30 77.111 kg University of 18:12:00 [facility] BMI 2020-12-30 33.20 kg/m2 University of 18:12:00 [facility] Systolic blood 2020-12-30 122 mm[Hg] [facility] pressure 15:13:00 [facility] Diastolic blood 2020-12-30 87 mm[Hg] [facility] o f pressure 15:13:00 [facility] Heart rate 2020-12-30 83 /min [facility] 15:13:00 [facility] Body temperature 2020-12-30 36.83 [place] [facility] 15:13:00 [facility] Respiratory rate 2020-12-30 18 /min [facility] 15:13:00 [facility] Body height 2020-12-30 152.4 cm University of 15:13:00 [facility] Body weight 2020-12-30 83.553 kg University of 15:13:00 [facility] BMI 2020-12-30 35.97 kg/m2 University of 15:13:00 [facility] Systolic blood 2020-12-16 123 mm[Hg] [facility] pressure 15:21:00 [facility] Diastolic blood 2020-12-16 90 mm[Hg] [facility] o f pressure 15:21:00 [facility] Heart rate 2020-12-16 81 /min [facility] 15:21:00 [facility] Body temperature 2020-12-16 36.83 [place] [facility] 15:21:00 [facility] Respiratory rate 2020-12-16 18 /min [facility] 15:21:00 [facility] Body height 2020-12-16 152.4 cm [facility] 15:21:00 [facility] Body weight 2020-12-16 83.915 kg University of 15:21:00 [facility] BMI 2020-12-16 36.13 kg/m2 [facility] 15:21:00 [facility] Systolic blood 2020-12-16 123 mm[Hg] [facility] pressure 15:21:00 [facility] Diastolic blood 2020-12-16 90 mm[Hg] [facility] o f pressure 15::00 [facility] Heart rate 2020-12-16 81 /min [facility] 15:21:00 [facility] Body temperature 2020-12-16 36.83 [place] [facility] 15:21:00 [facility] Respiratory rate 2020-12-16 18 /min [facility] 15:21:00 [facility] Body height 2020-12-16 152.4 cm University [facility] 15:21:00 [facility] Body weight 2020-12-16 83.915 kg University of 15:21:00 [facility] BMI 2020-12-16 36.13 kg/m2 University of 15:21:00 [facility] Systolic blood 2020-12-05 167 mm[Hg] [facility] pressure 22:45:00 [facility] Diastolic blood 2020-12-05 101 mm[Hg] University o f pressure 22:45:00 [facility] Heart rate 2020-12-05 76 /min [facility] of 22:45:00 [facility] Respiratory rate 2020-12-05 20 /min [facility] of 22:45:00 [facility] Oxygen saturation 2020-12-05 97 /min [facility] in Arterial blood 22:45:00 [facility] Pulse oxim[facility] Body temperature 2020-12-05 37.11 [place] [facility] 19:05:00 [facility] Body weight 2020-12-05 77.111 kg University of 19:05:00 [facility] BMI 2020-12-05 33.20 kg/m2 [facility] of 19:05:00 [facility] Systolic blood 2020-10-12 111 mm[Hg] [facility] pressure 20:04:00 [facility] Diastolic blood 2020-10-12 77 mm[Hg] [facility] o f pressure 20:04:00 [facility] Heart rate 2020-10-12 74 /min [facility] 20:04:00 [facility] Body temperature 2020-10-12 36.06 [place] [facility] 20:04:00 [facility] Respiratory rate 2020-10-12 18 /min [facility] 20:04:00 [facility] Oxygen saturation 2020-10-12 97 /min [facility] in Arterial blood 20:04:00 [facility] brandy by Pulse oximetry Branch Body height 2020-10-12 152.4 cm University of 02:36:00 [facility] Body weight 2020-10-12 84.46 kg University of 02:36:00 [facility] BMI 2020-10-12 36.36 kg/m2 University of 02:36:00 [facility] Systolic blood 2020-10-12 111 mm[Hg] [facility] pressure 20:04:00 [facility] Diastolic blood 2020-10-12 77 mm[Hg] [facility] o f pressure 20:04:00 [facility] Heart rate 2020-10-12 74 /min [facility] 20:04:00 [facility] Body temperature 2020-10-12 36.06 [place] [facility] 20:04:00 [facility] Respiratory rate 2020-10-12 18 /min [facility] 20:04:00 [facility] Oxygen saturation 2020-10-12 97 /min [facility] in Arterial blood 20:04:00 [place] [facility] Pulse oxim[facility] Body [...] /min [facility] in Arterial blood 01:00:00 [facility]y by Pulse oximetry Branch Body [...] /min [facility] in Arterial blood 01:00:00 [facility]y by Pulse oximetry Branch Body [...] /min [facility] in Arterial blood 13:12:00 [facility]y by Pulse oximetry Branch Systolic [...] [facility] in Arterial blood 13:12:00 [place] [facility] Pulse oxim[facility] Systolic blood 2020-07-18 184 mm[Hg] [facility] pressure 13:22:00 [facility] Diastolic blood 2020-07-18 110 mm[Hg] University o f pressure 13:22:00 [facility] Heart rate 2020-07-18 71 /min [facility] of 13:22:00 [facility] Respiratory rate 2020-07-18 18 /min [facility] of 13:22:00 [facility] Oxygen saturation 2020-07-18 100 /min [facility] in Arterial blood 13:22:00 [facility] brandy by Pulse oximetry Branch Body temperature 2020-07-18 36.56 [place] [facility] 12:49:00 [facility] Body height 2020-07-14 152.4 cm University of 16:45:00 [facility] Body weight 2020-07-14 77.111 kg University of 16:45:00 [facility] BMI 2020-07-14 33.20 kg/m2 University of 16:45:00 [facility] Systolic blood 2020-07-18 184 mm[Hg] [facility] of pressure 13:22:00 [facility] Diastolic blood 2020-07-18 110 mm[Hg] [facility] o f pressure 13:22:00 [facility] Heart rate 2020-07-18 71 /min [facility] of 13:22:00 [facility] Respiratory rate 2020-07-18 18 /min [facility] 13:22:00 [facility] Oxygen saturation 2020-07-18 100 /min [facility] in Arterial blood 13:22:00 [facility] brandy by Pulse oximetry Branch Body temperature 2020-07-18 36.56 [place] [facility] 12:49:00 [facility] Body height 2020-07-14 152.4 cm University [facility] 16:45:00 [facility] Body weight 2020-07-14 77.111 kg University of 16:45:00 [facility] BMI 2020-07-14 33.20 kg/m2 University [facility] 16:45:00 [facility] Systolic blood 2020-07-18 180 mm[Hg] [facility] pressure 12:59:00 [facility] Diastolic blood 2020-07-18 88 mm[Hg] University o f pressure 12:59:00 [facility] Heart rate 2020-07-18 74 /min [facility] of 12:59:00 [facility] Respiratory rate 2020-07-18 17 /min [facility] 12:59:00 [facility] Oxygen saturation 2020-07-18 100 /min [facility] in Arterial blood 12:59:00 [facility]y by Pulse oximetry Branch Body [...] /min [facility] in Arterial blood 12:59:00 [place] [facility] Pulse oxim[facility] Body [...] /min [facility] in Arterial blood 02:00:00 [facility] by Pulse oximetry Branch Body [...] rate 2020-07-08 84 /min [facility] 02:00:00 [facility] Respiratory rate 2020-07-08 20 /min [facility] 02:00:00 [facility] Oxygen saturation 2020-07-08 100 /min [facility] in Arterial blood 02:00:00 [place] [facility] Pulse oxim[facility] Body temperature 2020-07-07 37.22 [place] [facility] 23:45:00 [facility] Body weight 2020-07-07 81.194 kg University of 23:45:00 [facility] BMI 2020-07-07 34.96 kg/m2 University of 23:45:00 [facility] Systolic blood 2020-07-04 168 mm[Hg] [facility] pressure 13:34:00 [facility] Diastolic blood 2020-07-04 94 mm[Hg] [facility] o f pressure 13:34:00 [facility] Heart rate 2020-07-04 63 /min [facility] 13:34:00 [facility] Oxygen saturation 2020-07-04 100 /min [facility] in Arterial blood 13:34:00 [place] [facility] Pulse oxim[facility] Respiratory [...] 168 mm[Hg] [facility] pressure 13:34:00 [facility] Diastolic blood 2020-07-04 94 mm[Hg] [facility] o f pressure 13:34:00 [facility] Heart rate 2020-07-04 63 /min [facility] 13:34:00 [facility] Oxygen saturation 2020-07-04 100 /min [facility] in Arterial blood 13:34:00 [place] [facility] Pulse oxim[facility] Respiratory rate 2020-07-04 12 /min [facility] of 13:23:00 [facility] Body temperature 2020-07-04 36.72 [place] [facility] 13:03:00 [facility] Body height 2020-07-01 152.4 cm University of 17:45:00 [facility] Body weight 2020-07-01 81.647 kg University of 17:45:00 [facility] BMI 2020-07-01 35.15 kg/m2 University of 17:45:00 [facility] Systolic blood 2020-06-20 148 mm[Hg] [facility] of pressure 14:33:00 [facility] Diastolic blood 2020-06-20 86 mm[Hg] University o f pressure 14:33:00 [facility] Heart rate 2020-06-20 70 /min [facility] of 14:33:00 [facility] Respiratory rate 2020-06-20 11 /min University [...] 2020-06-20 148 mm[Hg] [facility] of pressure 14:33:00 [facility] Diastolic blood 2020-06-20 86 mm[Hg] [facility] o f pressure 14:33:00 [facility] Heart rate 2020-06-20 70 /min [facility] of 14:33:00 [facility] Respiratory rate 2020-06-20 11 /min [facility] 14:33:00 [facility] Oxygen saturation 2020-06-20 98 /min [facility] in Arterial blood 14:33:00 [place] [facility] Pulse oxim[facility] Body temperature 2020-06-20 36.33 [place] [facility] 14:18:00 [facility] Body height 2020-06-20 152.4 cm University of 12:30:00 [facility] Body weight 2020-06-20 81.647 kg University of 12:30:00 [facility] BMI 2020-06-20 35.15 kg/m2 University of 12:30:00 [facility] Respiratory rate 2020-06-20 17 /min [facility] 14:12:00 [facility] Respiratory rate 2020-06-20 17 /min [facility] 14:12:00 [facility] Systolic blood 2020-05-07 122 mm[Hg] [facility] pressure 00:05:00 [facility] Diastolic blood 2020-05-07 77 mm[Hg] [facility] o f pressure 00:05:00 [facility] Heart rate 2020-05-07 61 /min [facility] 00:05:00 [facility] Respiratory rate 2020-05-07 17 /min [facility] of 00:05:00 [facility] Oxygen saturation 2020-05-07 100 /min [facility] in Arterial blood 00:05:00 [facility] brandy by Pulse oximetry Branch Body temperature 2020-05-06 37.06 [place] [facility] 21:17:00 [facility] Body height 2020-05-06 152.4 cm University of 21:17:00 [facility] Body weight 2020-05-06 77.111 kg University of 21:17:00 [facility] BMI 2020-05-06 33.20 kg/m2 University of 21:17:00 [facility] Systolic blood 2020-05-07 122 mm[Hg] [facility] of pressure 00:05:00 [facility] Diastolic blood 2020-05-07 77 mm[Hg] [facility] o f pressure 00:05:00 [facility] Heart rate 2020-05-07 61 /min [facility] of 00:05:00 [facility] Respiratory rate 2020-05-07 17 /min [facility] 00:05:00 [facility] Oxygen saturation 2020-05-07 100 /min [facility] in Arterial blood 00:05:00 [facility] by Pulse oximetry Branch Body temperature 2020-05-06 37.06 [place] [facility] 21:17:00 [facility] Body height 2020-05-06 152.4 cm University of 21:17:00 [facility] Body weight 2020-05-06 77.111 kg University of 21:17:00 [facility] BMI 2020-05-06 33.20 kg/m2 University of 21:17:00 [facility] Systolic blood 2020-03-26 170 mm[Hg] [facility] of pressure 07:00:00 [facility] Diastolic blood 2020-03-26 110 mm[Hg] University o f pressure 07:00:00 [facility] Heart rate 2020-03-26 77 /min [facility] 07:00:00 [facility] Respiratory rate 2020-03-26 18 /min [facility] 07:00:00 [facility] Oxygen saturation 2020-03-26 96 /min [facility] in Arterial blood 07:00:00 [facility] brandy by Pulse oximetry [place] Body temperature 2020-03-26 37.67 [place] [facility] 03:07:00 [facility] Body height 2020-03-26 152.4 cm University of 03:07:00 [facility] Body weight 2020-03-26 77.111 kg University of 03:07:00 [facility] BMI 2020-03-26 33.20 kg/m2 University of 03:07:00 [facility] Systolic blood 2020-03-26 170 mm[Hg] [facility] of pressure 07:00:00 [facility] Diastolic blood 2020-03-26 110 mm[Hg] University o f pressure 07:00:00 [facility] Heart rate 2020-03-26 77 /min [facility] 07:00:00 [facility] Respiratory rate 2020-03-26 18 /min [facility] 07:00:00 [facility] Oxygen saturation 2020-03-26 96 /min [facility] in Arterial blood 07:00:00 [facility] by Pulse oximetry [place] Body temperature 2020-03-26 37.67 [place] University of [...] temperature 2020-02-08 36.11 [place] [facility] 20:21:00 [facility] Respiratory rate 2020-02-08 17 /min [facility] of 20:21:00 [facility] Oxygen saturation 2020-02-08 100 /min [facility] in Arterial blood 20:21:00 [facility] brandy by Pulse oximetry Branch Body [...] rate 2020-02-08 76 /min [facility] of 20::00 [facility] Body temperature 2020-02-08 36.11 [place] University [facility] 20:: [facility] Respiratory rate 2020-02-08 17 /min University of ::00 [facility] Oxygen saturation 2020-02-08 100 /min [facility] in Arterial blood 20:21:00 [facility]y by Pulse oximetry Branch Body [...] /min [facility] of in Arterial blood 23:30:00 [facility] by Pulse oximetry Branch Body temperature 2019-12-18 36.67 [place] [facility] 20:24:00 [facility] Body height 2019-12-18 152.4 cm University of :24:00 [facility] Body weight 2019-12-18 77.111 kg University of 20:24:00 [facility] BMI 2019-12-18 33.20 kg/m2 University of 20:24:00 [facility] Systolic blood 2019-12-18 113 mm[Hg] [facility] of pressure 23:30:00 [facility] Diastolic blood 2019-12-18 76 mm[Hg] University o f pressure 23:30:00 [facility] Heart rate 2019-12-18 57 /min [facility] of 23:30:00 [facility] Respiratory rate 2019-12-18 18 /min [facility] of 23:30:00 [facility] Oxygen saturation 2019-12-18 99 /min [facility] in Arterial blood 23:30:00 [facility] brandy by Pulse oximetry Branch Body [...] /min [facility] of in Arterial blood 04:28:00 [facility] by Pulse oximetry [place] Body temperature 2019-08-22 36.61 [place] University [facility] 00:48:43 [facility] Body height 2019-08-22 152.4 cm University of 00:44:00 [facility] Body weight 2019-08-22 86.183 kg University of 00:44:00 [facility] BMI 2019-08-22 37.11 kg/m2 University of 00:44:00 [facility] Systolic blood 2019-08-22 [...] /min [facility] of in Arterial blood 04:28:00 [facility] brandy by Pulse oximetry [place] Body temperature 2019-08-22 36.61 [facility] of 00:48:43 [facility] Body height 2019-08-22 152.4 cm University of 00:44:00 [facility] Body weight 2019-08-22 86.183 kg University of 00:44:00 [facility] BMI 2019-08-22 37.11 kg/m2 University of 00:44:00 [facility] Heart rate 2019-06-26 93 /min University of 00:53:00 [facility] Oxygen saturation 2019-06-26 94 /min University of in Arterial blood 00:53:00 [facility] brandy by Pulse oximetry Branch Systolic blood 2019-06-26 149 mm[Hg] University of pressure 00:45:00 [facility] Diastolic blood 2019-06-26 106 mm[Hg] University o f pressure 00:45:00 [facility] Respiratory rate 2019-06-26 16 /min University of 00:45:00 [facility] Body temperature 2019-06-25 37.17 [facility] of 20:48:00 [facility] Branch Body height 2019-06-25 152.4 cm University of 20:48:00 [facility] Body weight 2019-06-25 88.451 kg University of 20:48:00 [facility] BMI 2019-06-25 38.08 kg/m2 University of 20:48:00 [facility] Heart rate 2019-06-26 93 /min University of 00:53:00 [facility] Oxygen saturation 2019-06-26 94 /min University of in Arterial blood 00:53:00 [facility] brandy by Pulse oximetry Branch Systolic blood 2019-06-26 149 mm[Hg] University of pressure 00:45:00 [facility] Diastolic blood 2019-06-26 106 mm[Hg] University o f pressure 00:45:00 [facility] Respiratory rate 2019-06-26 16 /min University of 00:45:00 [facility] Body temperature 2019-06-25 37.17 [facility] of 20:48:00 [facility] Branch Body height 2019-06-25 152.4 cm University of 20:48:00 [facility] Body weight 2019-06-25 88.451 kg University of 20:48:00 [facility] BMI 2019-06-25 38.08 kg/m2 University of 20:48:00 [facility] Branch Systolic blood 2019-06-20 157 mm[Hg] University of pressure 00:30:00 [facility] Branch Diastolic blood 2019-06-20 89 mm[Hg] University o f pressure 00:30:00 [facility] Branch Heart rate 2019-06-20 70 /min University of 00:30:00 [facility] Branch Oxygen saturation 2019-06-20 97 /min University of in Arterial blood 00:30:00 [facility] brandy by Pulse oximetry Branch Respiratory rate 2019-06-20 14 /min University of 00:04:00 [facility] Branch Body height 2019-06-19 152.4 cm University of [...] 89 mm[Hg] University o f pressure 00:30:00 [facility] Heart rate 2019-06-20 70 /min University of 00:30:00 [facility] Oxygen saturation 2019-06-20 97 /min University of in Arterial blood 00:30:00 [facility] by Pulse oximetry [facility] Respiratory [...] /min University of in Arterial blood 02:59:00 [facility]y by Pulse oximetry Branch Body [...] [facility] Center Oxygen saturation 2019-05-20 94 /min [facility] in Arterial blood 02:59:00 [facility] by Pulse oximetry [place] Body temperature 2019-05-20 36.61 [facility] 00:45:32 [facility] Body weight [...] rate 2018-12-18 18 /min University of 13:38:00 [facility] Body height 2018-12-18 152.4 cm [...] Medical Center Oxygen saturation 2018-12-01 88 /min [place] in Arterial blood 19:27:00 [facility] by Pulse oximetry Branch Systolic blood 2018-11-17 145 mm[Hg] reported to RN University of pressure 17:00:00 [facility] Diastolic blood 2018-11-17 80 mm[Hg] reported to RN University of pressure 17:00:00 [facility] Heart rate 2018-11-17 54 /min University of 17:00:00 [facility] Body temperature 2018-11-17 36.72 [facility] of 17:00:00 [facility] Respiratory rate 2018-11-17 16 /min University of 17:00:00 [facility] Oxygen saturation 2018-11-17 95 /min [facility] in Arterial blood 17:00:00 [facility] by Pulse oximetry Branch Body height 2018-11-15 152.4 cm University of 22:07:00 [facility] Body weight 2018-11-15 88.587 kg University of 21:18:00 [facility] BMI 2018-11-15 38.14 kg/m2 University 21:18:00 [facility] Procedures Procedure Date / Time Performing Source Performed Clinician [facility] 09:[facility]00 [facility] BASIC METABOLIC PANEL (NA, K, CL, 2022-07-31 [facility] of CO2, GLUCOSE, BUN, CREATININE, CA) 09:45:00 [facility] CBC WITH DIFF 2022-07-31 [facility] of 09:45:00 [facility] URINALYSIS 2022-07-30 Mariana Ramirez of 23:17:00 [facility] CT ABDOMEN PELVIS WO CONTRAST 2022-07-30 Mariana Ramirez iversity of 23:16:08 [facility] LIPASE 2022-07-30 Mariana Ramirez of 23:12:00 [facility] COMP. METABOLIC PANEL ([id number]) 2022-07-30 Mariana Ramirez iversity of 23:12:00 [facility] CBC WITH DIFF 2022-07-30 Mariana Ramirez of 23:12:00 [facility] PROTHROMBIN TIME / INR 2022-07-30 Mariana Ramirezit y of 23:12:00 [facility] ACTIVATED PARTIAL THRMPLAS KIMANI 2022-07-30 Mariana Ramirez niversity of 23:12:00 [facility] CONSENT/REFUSAL FOR DIAGNOSIS AND 2022-07-30 Doctor Dung santiago, [facility] 21:55:41 [facility] MR ABDOMEN W WO CONTRAST MRCP 2022-04-26 Rigoberto Menendez Un iversity of 15:53:00 [facility] GAMMA GLUTAMYLTRANSFERASE 2022-04-26 Rigoberto Menendezer sity of 10:54:00 [facility] THYROID STIMULATING HORMONE 2022-04-26 Rigoberto Menendez ersity of 10:54:00 [facility] PHOSPHORUS 2022-04-26 Rigoberto Menendez of 10:53:00 [facility] CREATINE KINASE 2022-04-26 Rigoberto Menendez of 10:53:00 [facility] MAGNESIUM 2022-04-26 Rigoberto Menendez of 10:53:00 [facility] COMP. METABOLIC PANEL ([id number]) 2022-04-26 Rigoberto Menendez iversity of 10:53:00 [facility] LIPID PANEL ([id number])(TOTAL 2022-04-26 Rigoberto Menendez Univer sity of CHOLESTEROL, TRIGLYCERIDES, HDL) 10:53:00 [facility] CBC WITH DIFF 2022-04-26 Rigoberto Menendez of 10:53:00 [facility] N-TERMINAL PRO-BNP 2022-04-26 Rigoberto Menendez [place] of 10:53:00 [facility] CT ABDOMEN PELVIS W CONTRAST 2022-04-26 Jadyn Skaggs Uni versity of 00:12:00 [facility] LIPASE 2022-04-25 [facility] 23:25:00 [facility] COMP. METABOLIC PANEL ([id number]) 2022-04-25 Jadyn Skaggs Un iversity of 23:25:00 [facility] CBC WITH DIFF 2022-04-25 Singer [facility] of 23:25:00 [facility] GLYCOSYLATED HEMOGLOBIN (A1C) 2022-04-25 Rigoberto Menendez Un iversity of 23:25:00 [facility] URINALYSIS 2022-04-25 Singer [facility] of 23:25:00 [facility] CONSENT/REFUSAL FOR DIAGNOSIS AND 2022-04-25 Doctor Dung santiago, [facility] 22:43:11 [facility] XR HAND 3+ VW RIGHT 2022-04-08 [facility] 19:48:55 [facility] CONSENT/REFUSAL FOR DIAGNOSIS AND 2022-04-08 [facility] 18:51:24 [facility] COVID-19 (ID NOW RAPID TESTING) 2022-02-06 Levar Robert [facility] 21:14:00 [facility] BASIC METABOLIC PANEL (NA, K, CL, 2022-02-06 Priy[place] [address], GLUCOSE, BUN, CREATININE, CA) 08:31:00 [facility] CBC WITH DIFF 2022-02-06 Lenard Robert [place] of 08:31:00 [facility] XR SMALL BOWEL SERIES 2022-02-05 Valorie Maxwell [facility] 19:21:09 [facility] BASIC METABOLIC PANEL (NA, K, CL, 2022-02-04 Vianney Hooper [facility] CO2, GLUCOSE, BUN, CREATININE, CA) 07:56:00 [facility] CBC WITH DIFF 2022-02-04 Sandie [facility] of 07:56:00 [facility] URINE CULTURE 2022-02-03 Sandie [facility] of 23:42:00 [facility] HEPATIC FUNCTION PANEL ([id number]) 2022-02-03 [facility] (ALB,T.PRO,BILI 23:30:00 [facility],BU/BC,ALT,AST,ALK PHOS) [place] CT ABDOMEN PELVIS W CONTRAST 2022-02-03 Nguyễn Montano Uni versity of 17:51:46 [facility] URINE DRUG (IMMUNOASSAY) - 2022-02-03 Nguyễn Montano [facility] rsity of COMPREHENSIVE DRUG SCREEN 16:01:00 [facility] URINALYSIS 2022-02-03 Nguyễn Montano [facility] 16:01:00 [facility] AMYLASE 2022-02-03 Nguyễn Montano [facility] 16:00:00 [facility] LIPASE 2022-02-03 Nguyễn Montano [facility] 16:00:00 [facility] COMP. METABOLIC PANEL ([id number]) 2022-02-03 Nguyễn Montano Un iversity of 16:00:00 [facility] LIPID PANEL ([id number])(TOTAL 2022-02-03 [facility] sity of CHOLESTEROL, TRIGLYCERIDES, HDL) 16:00:00 [facility] ETHANOL 2022-02-03 Nguyễn Montano [facility] 16:00:00 [facility] SERUM DRUG (IMMUNOASSAY) - 2022-02-[address] [facility] of COMPREHENSIVE DRUG SCREEN 16:00:00 [facility] CBC WITH DIFF 2022-02-03 Nguyễn Montano [facility] 16:00:00 [facility] CT ABDOMEN PELVIS W CONTRAST 2022-01-26 Meka Hammonds Un iversity of 21:34:36 [facility] LIPASE 2022-01-26 Meka Hammonds [place] of 21:07:00 [facility] COMP. METABOLIC PANEL ([id number]) 2022-01-26 Meka Hammonds U niversity of 21:07:00 [facility] ETHANOL 2022-01-26 Meka Hammonds [facility] 21:07:00 [facility] CBC WITH DIFF 2022-01-26 Meka Hammonds 21:07:00 [facility] URINALYSIS 2022-01-26 Meka Hammonds [facility] 21:07:00 [facility] URINE DRUG (IMMUNOASSAY) - 2022-01-[address] [facility] ersity of COMPREHENSIVE DRUG SCREEN W/O 21:07:00 [place] [facility] CONSENT/REFUSAL FOR DIAGNOSIS AND 2022-01-26 Doctor Dung santiago, [facility] 20:04:49 [facility] INSURANCE CORRESPONDENCE 2022-01-02 Doctor Padmasschad, [facility] ersity of 05:01:00 [facility] CT ABDOMEN PELVIS W CONTRAST 2021-11-02 Mariana Ramirez Uni versity of 12:20:54 [facility] LIPASE 2021-11-02 Mariana Ramirez [place] of 10:40:00 [facility] COMP. METABOLIC PANEL ([id number]) 2021-11-02 Mariana Ramirez Un iversity of 10:40:00 [facility] CBC WITH DIFF 2021-11-02 Mariana Ramirez [place] of 10:40:00 [facility] PROTHROMBIN TIME / INR 2021-11-02 Mariana Ramirez Universit y of 10:40:00 [facility] ACTIVATED PARTIAL THRMPLAS KIMANI 2021-11-02 Mariana Ramirez U niversity of 10:40:00 [facility] CONSENT/REFUSAL FOR DIAGNOSIS AND 2021-11-02 Doctor Dung santiago, [facility] 09:27:03 [facility] AUTHORIZATION FOR RELEASE OF PHI 2021-10-25 Doctor Adrienne , [place] of 05:01:00 [facility] FL TIME OR (NON-REPORTABLE) 2021-09-[address] [facility] ersity of 14:39:00 [facility] FL TIME OR (NON-REPORTABLE) 2021-09-[address] [facility] ersity of 14:39:00 [facility] FOOT ARTHRODESIS 2021-09-29 Zulema Rodriguez [place] of 12:40:00 [facility] DAY SURGERY - ADC 2021-09-29 Doctor Dong, [place] of 05:01:00 [facility] ASSIGNMENT OF BENEFITS 2021-09-27 Doctor Iker, Univer sity of 15:03:24 [facility] EXTERNAL PROVIDER RECORDS 2021-09-20 Doctor Iker, Uni versity of 05:01:00 [facility] EXTERNAL PROVIDER RECORDS 2021-09-20 Doctor Unassigned, Uni versity of 05:01:00 [facility] EXTERNAL PROVIDER RECORDS 2021-09-19 Doctor Unassigned, Uni versity of 05:01:00 [facility] EXTERNAL PROVIDER RECORDS 2021-09-19 Doctor Unassigned, Uni versity of 05:01:00 [facility] MAGNESIUM 2021-09-08 [facility], [facility] of 09:16:00 [facility] COMP. METABOLIC PANEL ([id number]) 2021-09-08 [facility], [facility] iversity of 09:16:00 [facility] CBC WITH DIFF 2021-09-08 [facility], [facility] of 09:16:00 [facility] MAGNESIUM 2021-09-07 [facility], [facility] of 07:41:00 [facility] HEPATIC FUNCTION PANEL ([id number]) 2021-09-07 [facility], [facility] niversity of (ALB,T.PRO,BILI 07:41:00 [facility],BU/BC,ALT,AST,ALK PHOS) [place] BASIC METABOLIC PANEL (NA, K, CL, 2021-09-07 [facility] of CO2, GLUCOSE, BUN, CREATININE, CA) 07:41:00 [facility] CBC WITH DIFF 2021-09-07 [facility], [facility] of 07:41:00 [facility] MR ABDOMEN W WO CONTRAST MRCP 2021-09-06 [facility], [facility] iversity of 15:50:18 [facility] MAGNESIUM 2021-09-06 [facility], [facility] of 09:32:00 [facility] HEPATIC FUNCTION PANEL ([id number]) 2021-09-06 [facility] (ALB,T.PRO,BILI 09:32:00 [place] [facility],BU/BC,ALT,AST,ALK PHOS) Branch BASIC METABOLIC PANEL (NA, K, CL, 2021-09-06 [facility], [facility] of CO2, GLUCOSE, BUN, CREATININE, CA) 09:32:00 [facility] MAGNESIUM 2021-09-05 [facility], [facility] of 08:23:00 [facility] HEPATIC FUNCTION PANEL ([id number]) 2021-09-05 Nguyễn, [facility] niversity of (ALB,T.PRO,BILI 08:23:00 [place] [facility],BU/BC,ALT,AST,ALK PHOS) [place] BASIC METABOLIC PANEL (NA, K, CL, 2021-09-05 [facility] CO2, GLUCOSE, BUN, CREATININE, CA) 08:23:00 [facility] CBC WITH DIFF 2021-09-05 [facility], [facility] of 08:23:00 [facility] MAGNESIUM 2021-09-04 [facility], [facility] of 09:15:00 [facility] HEPATIC FUNCTION PANEL ([id number]) 2021-09-04 [facility], [facility] niversity of (ALB,T.PRO,BILI 09:15:00 [place] [facility],BU/BC,ALT,AST,ALK PHOS) [place] BASIC METABOLIC PANEL (NA, K, CL, 2021-09-04 [facility] CO2, GLUCOSE, BUN, CREATININE, CA) 09:15: [facility] CBC WITH DIFF 2021-09-04 [facility] of 09:15:00 [facility] MAGNESIUM 2021-09-03 [facility] 09:25:00 [facility] COMP. METABOLIC PANEL ([id number]) 2021-09-03 [facility] iversity of 09:25:00 [facility] CBC WITH DIFF 2021-09-03 [facility] of 09:25:00 [facility] CMV BY PCR 2021-09-03 [facility] 03:30:00 [facility] HSV 1&2, VZV NAAT 2021-09-03 [facility] 03:30:00 [facility] ACETAMINOPHEN 2021-09-02 [facility] 15:34:00 [facility] HEPATITIS B SURFACE ANTIBODY 2021-09-02 [facility], [facility] Uni versity of 15:34:00 [facility] HCV ANTIBODY 2021-09-02 [facility], [facility] 15:34:00 [facility] HBC ANTIBODY (IGM & IGG) 2021-09-02 [facility], [facility] ity of 15:34:00 [facility] CBC WITH DIFF 2021-09-02 [facility], [facility] 15:33:00 [facility] EBV QUANTITATIVE PCR 2021-09-02 [facility] :33:00 [facility] SMOOTH MUSCLE AB,IGG W/REFLEX 2021-09-02 [facility] iversity of 15:32:00 [facility] PHOSPHORUS 2021-09-02 [facility] of 15:32:00 [facility] MAGNESIUM 2021-09-02 [facility] of 15:32:00 [facility] FERRITIN SERUM 2021-09-02 [facility] of 15:32:00 [facility] CERULOPLASMIN 2021-09-02 [facility] of 15:32:00 [facility] ALPHA 1 ANTITRYPSIN 2021-09-02 [facility] o f 15:32:00 [facility] IMMUNOGLOBULIN G 2021-09-02 [facility] of 15:32:00 [facility] COMP. METABOLIC PANEL ([id number]) 2021-09-02 [facility] iversity of 15:32:00 [facility] ANTI-NUCLEAR ANTIBODY SCREEN 2021-09-02 [facility] versity of 15:32:00 [facility] HEPATITIS B SURFACE ANTIGEN 2021-09-02 [facility] ersity of 15:32:00 [facility] HAV ANTIBODY (IGG AND IGM) 2021-09-02 [facility] 15:32:00 [facility] ANTI-NUCLEAR ANTIBODY TITER 2021-09-02 [facility] ersity of 15:32:00 [facility] ANTI-NUCLEAR ANTIBODY-PATHOLOGIST 2021-09-02 [facility] of INTERPRETATION 15:32:00 [facility] PROTHROMBIN TIME / IN[facility] 2021-09[facility]02 [facility] HB ECG ROUTINE & RHYTHM STRIP 2021-09-02 Sheryl Crenshaw Un iversity of 13:42:19 [facility] US ABDOMEN LIMITED 2021-09-02 Sheryl Crenshaw [place] of 05:27:56 [facility] HB ECG ROUTINE & RHYTHM STRIP 2021-09-01 Jaki Polanco Un iversity of 18:43:41 [facility] XR CHEST 1 VW 2021-09-01 Jaki Polanco [place] of 18:38:41 [facility] LIPASE 2021-09-01 Jaki Polanco [place] of 18:37:00 [facility] MAGNESIUM 2021-09-01 Jaki Polanco [place] of 18:37:00 [facility] TROPONIN I 2021-09-01 Jaki Polanco [facility] of 18:37:00 [facility] COMP. METABOLIC PANEL ([id number]) 2021-09-01 Jaki Polanco Un iversity of 18:37:00 [facility] CBC WITH DIFF 2021-09-01 [facility] of 18:37:00 [facility] URINALYSIS 2021-09-01 [facility] of 18:37:00 [facility] HOSPITAL ADMISSION 2021-09-01 Doctor Unasschad, [facility] 05:01:00 [facility] CT ABDOMEN PELVIS W CONTRAST 2021-08-27 Maru Baez [facility] 17:00:42 [facility] URINALYSIS 2021-08-27 Maru Baez [facility] 16:26:00 [facility] LIPASE 2021-08-27 Maru Baez [facility] 15:59:00 [facility] TROPONIN I 2021-08-27 Maru Baez [facility] 15:59:00 [facility] COMP. METABOLIC PANEL ([id number]) 2021-08-27 Maru Baez [facility] 15:59:00 [facility] CBC WITH DIFF 2021-08-27 Maru Baez [facility] 15:59:00 [facility] CONSENT/REFUSAL FOR DIAGNOSIS AND 2021-08-27 Doctor Unasspramod santiago, [facility] 15:44:40 [facility] POCT GLUCOSE (AUTOMATED) 2021-07-28 Pasha Hinojosa [facility] ity of 22:28:00 [facility] RENAL ARTERY DUPLEX - BY VASCULAR 2021-07-28 Gatito [facility] 20:54:00 Fatou [facility] POCT GLUCOSE (AUTOMATED) 2021-07-28 Pasha Hinojosa ity of 16:45:00 [facility] POCT GLUCOSE (AUTOMATED) 2021-07-28 Pasha Hinojosa ity of 12:52:00 [facility] LIPASE 2021-07-28 Pasha Hinojosa [place] of 09:31:00 [facility] COMP. METABOLIC PANEL ([id number]) 2021-07-28 Pasha Hinojosa Un iversity of 09:31:00 [facility] CBC WITH DIFF 2021-07-28 Pasha Hinojosa University of 09:31:00 [facility] POCT GLUCOSE (AUTOMATED) 2021-07-28 Pasha Hinojosa ity of 09:08:00 [facility] POCT GLUCOSE (AUTOMATED) 2021-07-28 Pasha Hinojosa Univers ity of 04:38:00 [facility] POCT GLUCOSE (AUTOMATED) 2021-07-28 Pasha Hinojosa Univers ity of 01:02:00 [facility] POCT GLUCOSE (AUTOMATED) 2021-07-27 Pasha Hinojosa Univers ity of 21:47:00 [facility] POCT GLUCOSE (AUTOMATED) 2021-07-27 Pasha Hinojosa ity of 16:48:00 [facility] POCT GLUCOSE (AUTOMATED) 2021-07-27 Pasha Hinojosa ity of 12:43:00 [facility] MAGNESIUM 2021-07-27 Gatito [facility] of 08:55:00 [facility] BASIC METABOLIC PANEL (NA, K, CL, 2021-07-27 Gatito [facility] of CO2, GLUCOSE, BUN, CREATININE, CA) 08:55:00 [facility] CBC WITH DIFF 2021-07-27 Gatito [facility] of 08:55:00 [facility] POCT GLUCOSE (AUTOMATED) 2021-07-27 Pasha Hinojosa ity of 08:47:00 [facility] POCT GLUCOSE (AUTOMATED) 2021-07-27 Pasha Hinojosa Univers ity of 06:48:00 [facility] POCT GLUCOSE (AUTOMATED) 2021-07-27 Pasha Hinojosa Univers ity of 01:50:00 [facility] POCT GLUCOSE (AUTOMATED) 2021-07-26 Pasha Hinojosa Univers ity of 21:50:00 [facility] POCT GLUCOSE (AUTOMATED) 2021-07-26 Pasha Hinojosa Univers ity of 16:50:00 [facility] LIPASE 2021-07-26 Gatito [facility] of 09:59:00 [facility] MAGNESIUM 2021-07-26 Gatito [facility] of 09:59:00 [facility] BASIC METABOLIC PANEL (NA, K, CL, 2021-07-26 Gatito [facility] of CO2, GLUCOSE, BUN, CREATININE, CA) 09:59:00 [facility] CBC WITH DIFF 2021-07-26 Jesusita Mederos [place] of 09:59:00 [facility] EKG-12 LEAD 2021-07-25 Pasha Hinojosa [place] of 23:35:46 [facility] POCT GLUCOSE (AUTOMATED) 2021-07-25 Pasha Hinojosa [facility] ity of 14:19:00 [facility] HEPATIC FUNCTION PANEL ([id number]) 2021-07-25 Jesusita Mederos niversity of (ALB,T.PRO,BILI 12:28:00 [facility],BU/BC,ALT,AST,ALK PHOS) [place] BASIC METABOLIC PANEL (NA, K, CL, 2021-07-25 Gatito Jesusita [place] of CO2, GLUCOSE, BUN, CREATININE, CA) 12:28:00 [facility] CBC WITH DIFF 2021-07-25 Jesusita Mederos [place] of 10:59:00 [facility] MAGNESIUM 2021-07-24 Pasha Hinojosa [place] 10:49:00 [facility] HEPATIC FUNCTION PANEL ([id number]) 2021-07-24 Pasha Hinojosa niversity of (ALB,T.PRO,BILI 10:49:00 [facility],BU/BC,ALT,AST,ALK PHOS) [place] BASIC METABOLIC PANEL (NA, K, CL, 2021-07-24 Brigido Hinojosa [place] CO2, GLUCOSE, BUN, CREATININE, CA) 10:49:00 [facility] CBC WITH DIFF 2021-07-24 Pasha Hinojosa [place] 09:16:00 [facility] PHOSPHORUS 2021-07-24 Pasha Hinojosa [place] 00:43:00 [facility] CT ABDOMEN PELVIS W CONTRAST 2021-07-23 Meka Hammonds Un iversity of 22:53:27 [facility] LIPASE 2021-07-23 Meka Hammonds [place] 21:19:00 [facility] MAGNESIUM 2021-07-23 Meka Hammonds [place] 21:19:00 [facility] TROPONIN I 2021-07-23 Meka Hammonds [place] 21:19:00 [facility] COMP. METABOLIC PANEL ([id number]) 2021-07-23 Meka Hammonds [facility] of 21:19:00 [facility] D-DIMER 2021-07-23 Meka Hammonds [facility] 21:19:00 [facility] CBC WITH DIFF 2021-07-23 Meka Hammonds [facility] 21:18:00 [facility] URINALYSIS 2021-07-23 Meka Hammonds [facility] 21:18:00 [facility] XR CHEST 1 VW 2021-07-23 Meka Hammonds [facility] 21:03:00 [facility] HB ECG ROUTINE & RHYTHM STRIP 2021-07-23 Meka Hammonds [facility] of 20:31:58 [facility] CONSENT/REFUSAL FOR DIAGNOSIS AND 2021-07-23 Doctor Dung santiago [facility] 20:20:48 [facility] ESOPHAGOGASTRODUODENOSCOPY 2021-07-04 Gulshan Piper [facility] rsity of 17:04:00 [facility] EGD (ENDO) 2021-07-04 Jeannie Slade [place] 16:11:40 [facility] EGD (ENDO) 2021-07-04 Jeannie Slade [place] 16:11:40 [facility] DAY SURGERY - ADC 2021-07-04 Doctor Unaantonio, University of 05:01:00 [facility] EXTERNAL PROVIDER RECORDS 2021-06-23 Doctor Unassigned, Uni versity of 06:01:00 [facility] EXTERNAL PROVIDER RECORDS 2021-06-23 Doctor Unassigned, Uni versity of 06:01:00 [facility] CT ABDOMEN PELVIS W CONTRAST 2021-06-04 Mariana Ramirez Uni versity of 01:33:00 [facility] US GALL BLADDER 2021-06-03 Mariana Ramirez of 23:57:52 [facility] LIPASE 2021-06-03 Mariana Ramirez of 20:30:00 [facility] TROPONIN I 2021-06-03 Mariana Ramirez of 20:30:00 [facility] COMP. METABOLIC PANEL ([id number]) 2021-06-03 Mariana Ramirez Un iversity of 20:30:00 [facility] CBC WITH DIFF 2021-06-03 Mariana Ramirez of 20:30:00 [facility] PROTHROMBIN TIME / INR 2021-06-03 Mariana Ramirezit y of 20:30:00 [facility] ACTIVATED PARTIAL THRMPLAS KIMANI 2021-06-03 Mariana Ramirez U niversity of 20:30:00 [facility] N-TERMINAL PRO-BNP 2021-06-03 Mariana Rmairez of 20:30:00 [facility] COVID-19 (ID NOW RAPID TESTING) 2021-06-03 Mariana Ramirez [place] 20:30:00 [facility] LACTIC ACID WHOLE BLOOD 2021-06-03 [facility] 20:26:00 [facility] XR CHEST 1 VW 2021-06-03 Mariana Ramirez [place] 20:15:36 [facility] CONSENT/REFUSAL FOR DIAGNOSIS AND 2021-06-03 Doctor Dung santiago [facility] 19:39:18 [facility] EKG-12 LEAD 2021-05-22 Jarocho [facility] of 06:47:40 [facility] [address] CHEST PULMONARY ANGIOGRAM 2021-05-22 [facility] 06:08:50 [facility] TROPONIN I 2021-05-22 [facility] of 05:41:00 [facility] COMP. METABOLIC PANEL ([id number]) 2021-05-22 Consuelo Avendaño iversity of 05:41:00 [facility] CBC WITH DIFF 2021-05-22 [facility] hospital [facility] of 05:41:00 [facility] N-TERMINAL PRO-BNP 2021-05-22 [facility] 05:[facility] NOTICE OF PRIVACY PRACTICES 2021-05-22 Doctor Unasschad, U niversity of 05:17:11 [facility] CONSENT/REFUSAL FOR DIAGNOSIS AND 2021-05-22 [facility] 05:13:31 [facility] POCT MOLECULAR FLU 2021-05-18 Manoj [facility] of 15:26:00 [facility] POCT MOLECULAR STREP 2021-05-18 Manoj [facility] of 15:22:00 [facility] COVID-19 (ID NOW RAPID TESTING) 2021-04-15 [facility] 20:37:00 [facility] CT ABDOMEN PELVIS W CONTRAST 2021-04-15 Consuelo Avendaño Uni versity of 20:23:27 [facility] LIPASE 2021-04-15 [facility] 20:23:00 [facility] TROPONIN I 2021-04-15 [facility] 20:23:00 [facility] COMP. METABOLIC PANEL ([id number]) 2021-04-15 Consuelo Avendaño Un iversity of 20:23:00 [facility] CBC WITH DIFF 2021-04-15 [facility] 20:23:00 [facility] URINALYSIS 2021-04-15 Jarocho [facility] of 20:23:00 [facility] CONSENT/REFUSAL FOR DIAGNOSIS AND 2021-04-15 [facility] 19:33:08 [facility] CT ABDOMEN PELVIS W CONTRAST 2021-03-26 Consuelo Avendaño Uni versity of 02:08:33 [facility] LIPASE 2021-03-26 Jarocho [facility] of 00:57:00 [facility] TROPONIN I 2021-03-26 Jarocho [facility] of 00:57:00 [facility] COMP. METABOLIC PANEL ([id number]) 2021-03-26 Consuelo Avendaño Un iversity of 00:57:00 [facility] CBC WITH DIFF 2021-03-26 [facility] 00:57:00 [facility] URINALYSIS 2021-03-26 Jarocho [facility] of 00:57:00 [facility] N-TERMINAL PRO-BNP 2021-03-26 Jarocho [facility] of 00:57:00 [facility] XR CHEST 1 VW 2021-03-26 [facility] 00:17:07 [facility] CONSENT/REFUSAL FOR DIAGNOSIS AND 2021-03-25 Doctor Dung santiago, [place] [facility] 23:45:22 [facility] SARS-COV-2 COVID-19 VACCINE 2021-03-25 Doctor Unassigned, U niversity of BOOSTER,0.25ML,IM (MODERNA) 17:05:57 [place] Jeffery mason [facility] COMP. METABOLIC PANEL ([id number]) 2021-03-20 Meka Hammonds U niversity of 23:40:00 [facility] CT ABDOMEN PELVIS W CONTRAST 2021-03-20 Meka Hammonds Un iversity of 23:00:43 [facility] LIPASE 2021-03-20 Meka Hammonds [facility] 22:41:00 [facility] TROPONIN I 2021-03-20 Meka Hammonds [facility] 22:41:00 [facility] CBC WITH DIFF 2021-03-20 Meka Hammonds [facility] 22:41:00 [facility] NOTICE OF PRIVACY PRACTICES 2021-03-20 Doctor Unassigned, U niversity of 21:43:47 [facility] CONSENT/REFUSAL FOR DIAGNOSIS AND 2021-03-20 [facility] 21:43:12 [facility] CT ABDOMEN PELVIS W CONTRAST 2021-02-12 Rosalinda Fisher U niversity of 22:22:23 [facility] LIPASE 2021-02-12 [facility] of 19:54:00 [facility] COMP. METABOLIC PANEL ([id number]) 2021-02-[address] [facility] of 19:54:00 [facility] CBC WITH DIFF 2021-02-[address] [facility] of 19:54:00 [facility] URINALYSIS 2021-02-[address] [facility] of 19:54:00 [facility] CONSENT/REFUSAL FOR DIAGNOSIS AND 2021-02-12 [facility] 19:03:31 [facility] COMP. METABOLIC PANEL ([id number]) 2021-01-18 Maru Baez [place] 04:11:00 [facility] CT ABDOMEN PELVIS W CONTRAST 2021-01-18 Maru Baez [place] 03:35:25 [facility] LIPASE 2021-01-18 Maru Baez [place] 02:54:00 [facility] CBC WITH DIFF 2021-01-18 Maru Baez [place] 02:54:00 [facility] URINALYSIS 2021-01-18 Maru Baez [facility] 02:54:00 [facility] CONSENT/REFUSAL FOR DIAGNOSIS AND 2021-01-18 [facility] 02:23:56 [facility] XR CHEST 2 VW 2021-01-07 Consuelo Avendaño [facility] 16:49:00 [facility] COVID-19 (ID NOW RAPID TESTING) 2020-12-30 Maru Baez [facility] 22:02:00 [facility] CT ABDOMEN PELVIS W CONTRAST 2020-12-30 Maru Baez [facility] 18:49:58 [facility] LIPASE 2020-12-30 Maru Baez [facility] 18:29:00 [facility] HEPATIC FUNCTION PANEL ([id number]) 2020-12-30 Maru Baez [facility] (ALB,T.PRO,BILI 18:29:00 [facility],BU/BC,ALT,AST,ALK PHOS) [place] BASIC METABOLIC PANEL (NA, K, CL, 2020-12-30 Jerilyn Baez ra [facility] CO2, GLUCOSE, BUN, CREATININE, CA) 18:29:00 [facility] CBC WITH DIFF 2020-12-30 Maru Baez [facility] 18:29:00 [facility] URINALYSIS 2020-12-30 Maru Baez [facility] 18:29:00 [facility] CONSENT/REFUSAL FOR DIAGNOSIS AND 2020-12-30 [facility] 18:01:18 [facility] US PELVIS COMPLETE WITH 2020-12-23 Vira Washburn ty of TRANSVAGINAL 21:36:03 [facility] US GALL BLADDER 2020-12-05 Eliana Poole [place] 22:39:34 F [facility] LACTIC ACID WHOLE BLOOD 2020-12-05 Eliana Poole [facility] sity of 22:16:00 F [facility] CT ABDOMEN PELVIS W CONTRAST 2020-12-05 Eliana Poole U niversity of 21:23:47 F [facility] ASSIGNMENT OF BENEFITS 2020-12-05 Doctor Padmasschad [facility] sity of 20:53:22 [place] LIPASE 2020-12-05 Maru Baez [facility] 20:12:00 [facility] COMP. METABOLIC PANEL ([id number]) 2020-12-05 Maru Baez [facility] 20:12:00 [facility] CBC WITH DIFF 2020-12-05 Maru Baez [facility] 20:12:00 [facility] URINALYSIS 2020-12-05 Maru Baez [facility] 20:12:00 [facility] CONSENT/REFUSAL FOR DIAGNOSIS AND 2020-12-05 Doctor Dung santiago, [place] [facility] 18:56:42 [facility] MAGNESIUM 2020-10-12 [facility], [facility] 08:21:00 [facility] HEPATIC FUNCTION PANEL ([id number]) 2020-10-12 [facility], niversity of (ALB,T.PRO,BILI 08:21:00 [facility],BU/BC,ALT,AST,ALK PHOS) [place] LIPID PANEL ([id number])(TOTAL 2020-10-12 Hernan [facility] ale of CHOLESTEROL, TRIGLYCERIDES, HDL) 08:21:00 [facility] CBC WITH DIFF 2020-10-12 [facility] 08:21:00 [facility] PROTHROMBIN TIME / INR 2020-10-12 [facility], Universit y of 08:21:00 [facility] ACTIVATED PARTIAL THRMPLAS KIMANI 2020-10-12 [facility], U niversity of 08:21:00 [facility] HEPATIC FUNCTION PANEL ([id number]) 2020-10-12 [facility], niversity of (ALB,T.PRO,BILI 03:31:00 [facility] T,BU/BC,ALT,AST,ALK PHOS) [place] BASIC METABOLIC PANEL (NA, K, CL, 2020-10-12 [facility] CO2, GLUCOSE, BUN, CREATININE, CA) 03:31:00 [facility] COVID-19 (ID NOW RAPID TESTING) 2020-10-11 Mariana Ramirez [place] 16:15:00 [facility] US GALL BLADDER 2020-10-11 Mariana Ramirez [place] 15:26:59 [facility] HB ECG ROUTINE & RHYTHM STRIP 2020-10-11 Mariana Ramirez Un iversity of 13:53:00 [facility] LIPASE 2020-10-11 Mariana Ramirez of 13:49:00 [facility] TROPONIN I 2020-10-11 Mariana Ramirez [place] 13:49:00 [facility] HEPATIC FUNCTION PANEL ([id number]) 2020-10-11 Mariana Ramirez niversity of (ALB,T.PRO,BILI 13:49:00 [facility],BU/BC,ALT,AST,ALK PHOS) [place] BASIC METABOLIC PANEL (NA, K, CL, 2020-10-11 Florina Ramirez [place] [address], GLUCOSE, BUN, CREATININE, CA) 13:49:00 [facility] CBC WITH DIFF 2020-10-11 Mariana Ramirez [place] 13:49:00 [facility] URINALYSIS 2020-10-11 James [facility] 13:49:00 [facility] CONSENT/REFUSAL FOR DIAGNOSIS AND 2020-10-11 Doctor Dung santiago [facility] 13:29:15 [facility] COVID-19 (ID NOW RAPID TESTING) 2020-10-04 Maisha Reyes [facility] 23:19:00 [facility] URINALYSIS 2020-10-04 Maisha Reyes [facility] 23:18:00 [facility] LIPASE 2020-10-04 Maisha Reyes [facility] 23:17:00 [facility] COMP. METABOLIC PANEL ([id number]) 2020-10-04 Maisha Reyes iversity of 23:17:00 [facility] CBC WITH DIFF 2020-10-04 Maisha Reyes [facility] 23:17:00 [facility] CONSENT/REFUSAL FOR DIAGNOSIS AND 2020-08-05 [facility] 13:05:44 [facility] FL TIME OR (NON-REPORTABLE) 2020-07-18 Moise Gamez U [facility]iversity of 12:50:00 [facility] FL TIME OR (NON-REPORTABLE) 2020-07-18 Moise Gamez [facility] of 12:50:00 [facility] BLOCK EPIDURAL 2020-07-18 Moise Gamez [place] 12:25:00 [facility] POCT GLUCOSE (AUTOMATED) 2020-07-18 Moise Gamez Univ ersity of 12:01:00 [facility] POCT GLUCOSE (AUTOMATED) 2020-07-[address] [facility] ersity of 12:01:00 [facility] 2020-07-18 Doctor Iker, [facility] 05:01:00 [facility] CT ABDOMEN PELVIS W CONTRAST 2020-07-08 Jaki Polanco Uni versity of 00:59:19 [facility] LIPASE 2020-07-08 Jaki Polanco Sydnie [place] 00:23:00 [facility] MAGNESIUM 2020-07-08 CollinJaki [facility] 00:23:00 [facility] TROPONIN I 2020-07-08 CollinJaki [facility] 00:23:00 [facility] COMP. METABOLIC PANEL ([id number]) 2020-07-08 Jaki Polanco iversity of 00:23:00 [facility] CBC WITH DIFF 2020-07-08 CollinJaki Sydnie [facility] 00:23:00 [facility] URINALYSIS 2020-07-08 Jaki Polanco Sydnie [facility] 00:23:00 [facility] COVID-19 (ID NOW RAPID TESTING) 2020-07-08 CollinJaki [facility] 00:23:00 [facility] XR CHEST 1 VW 2020-07-08 CollinJaki [facility] 00:01:58 [facility] CONSENT/REFUSAL FOR DIAGNOSIS AND 2020-07-07 Doctor Dung santiago [facility] 23:40:12 [facility] FL TIME OR (NON-REPORTABLE) 2020-07-04 Moise Gamez U niversity of 13:10:00 [facility] 2020-07-04 Doctor Iker, [facility] 05:01:00 [facility] ASSIGNMENT OF BENEFITS 2020-07-01 Doctor Iker, [facility] sity of 14:01:02 [place] TIME OR (NON-REPORTABLE) 2020-06-20 Moise Gamez U niversity of 14:12:00 [facility] 2020-06-20 Doctor Iker, [facility] 06:01:00 [facility] ASSIGNMENT OF BENEFITS 2020-06-17 Doctor Unassigned, Univer sity of 21:21:05 [facility] CONSENT/REFUSAL FOR DIAGNOSIS AND 2020-06-15 [facility] 20:59:25 [facility] CONSENT/REFUSAL FOR DIAGNOSIS AND 2020-06-15 Doctor Dung santiago [facility] 20:59:25 [facility] ASSIGNMENT OF BENEFITS 2020-06-15 Doctor Unassigned, Univer sity of 20:59:08 [facility] ASSIGNMENT OF BENEFITS 2020-06-15 Doctor Unassigned, Univer sity of 20:59:08 [facility] CONSENT/REFUSAL FOR DIAGNOSIS AND 2020-06-15 [facility] 20:58:52 [facility] CONSENT/REFUSAL FOR DIAGNOSIS AND 2020-06-15 Doctor Dung santiago [facility] 20:58:52 [facility] ASSIGNMENT OF BENEFITS 2020-06-15 Doctor Unassigned, Univer sity of 20:58:37 [facility] ASSIGNMENT OF BENEFITS 2020-06-15 Doctor Padmasschad, Univer sity of 20:58:37 [facility] NOTICE OF PRIVACY PRACTICES 2020-06-15 Doctor Unassigned, U niversity of 20:58:21 [facility] NOTICE OF PRIVACY PRACTICES 2020-06-15 Doctor Unassigned, U niversity of 20:58:21 [facility] CONSENT/REFUSAL FOR DIAGNOSIS AND 2020-06-15 Doctor Dung santiago [facility] 20:58:08 [facility] CONSENT/REFUSAL FOR DIAGNOSIS AND 2020-06-15 Doctor Dung santiago [facility] 20:58:08 [facility] ASSIGNMENT OF BENEFITS 2020-06-15 Doctor Padmassigned, Univer sity of 20:57:50 [facility] ASSIGNMENT OF BENEFITS 2020-06-15 Doctor Padmassigned, Univer sity of 20:57:50 [facility] DSU PRE-OP 2020-06-15 [facility] 06:01:00 [facility] DSU PRE-OP 2020-06-15 Doctor Unassigned, [facility] 06:01:00 [facility] HEPATIC FUNCTION PANEL ([id number]) 2020-05-06 [facility] of (ALB,T.PRO,BILI 22:56:00 [facility],BU/BC,ALT,AST,ALK PHOS) [place] BASIC METABOLIC PANEL (NA, K, CL, 2020-05-06 [facility] CO2, GLUCOSE, BUN, CREATININE, CA) 22:56:00 [facility] XR CHEST 1 VW 2020-05-06 [facility] 21:44:02 [facility] LIPASE 2020-05-06 [facility] 21:40:00 [facility] TROPONIN I 2020-05-06 [facility] 21:40:00 [facility] CBC WITH DIFF 2020-05-06 [facility] 21:40:00 [facility] URINALYSIS 2020-05-06 [facility] 21:32:00 [facility] COVID-19 (ID NOW RAPID TESTING) 2020-05-06 [facility] 21:32:00 [facility] NOTICE OF PRIVACY PRACTICES 2020-05-06 Doctor Unassigned, U niversity of 21:14:50 [place] CONSENT/REFUSAL FOR DIAGNOSIS AND 2020-05-06 Doctor Unasspramod santiago, [facility] 21:14:25 [place] CT ABDOMEN PELVIS W CONTRAST 2020-03-26 Gabriele Grayson Un iversity of 06:12:05 [facility] URINALYSIS 2020-03-26 Gabriele Grayson [facility] 05:02:00 [facility] LIPASE 2020-03-26 Gabriele Grayson [facility] 03:38:00 [facility] COMP. METABOLIC PANEL ([id number]) 2020-03-26 Gabriele Grayson U niversity of 03:38:00 [facility] CBC WITH DIFF 2020-03-26 Gabriele Grayson [facility] 03:38:00 [facility] COVID-19 (ID NOW RAPID TESTING) 2020-03-26 Gabriele Grayson [facility] 03:38:00 [facility] CONSENT/REFUSAL FOR DIAGNOSIS AND 2020-03-26 Doctor Dung santiago, [facility] 02:58:31 [facility] REFERRAL- REQUEST/RESPONSE 2020-03-18 Doctor Unassigned, Un iversity of 06:01:00 [place] MR BRAIN WO CONTRAST 2020-02-08 Monet Dominguez [facility] y of 13:47:00 Ali [facility] BASIC METABOLIC PANEL (NA, K, CL, 2020-02-07 Pending Sale To [facility] of CO2, GLUCOSE, BUN, CREATININE, CA) 08:51:00 [facility] CBC WITH DIFF 2020-02-07 Pending Sale To [facility], [place] [facility] of 08:51:00 [facility] COMP. METABOLIC PANEL ([id number]) 2020-02-05 Rigoberto Menendez Un iversity of 09:37:00 [facility] CBC WITH DIFF 2020-02-05 Rigoberto Menendez [place] 09:37:00 [facility] MR CERVICAL SPINE WO CONTRAST 2020-02-05 Jesusita Aguillon Un iversity of 00:24:54 [facility] MAGNESIUM 2020-02-04 Rigoberto Menendez [place] 10:01:00 [facility] COMP. METABOLIC PANEL ([id number]) 2020-02-04 Rigoberto Menendez Un iversity of 10:01:00 [facility] CBC WITH DIFF 2020-02-04 Jesusita Aguillon [place] 10:01:00 [facility] N-TERMINAL PRO-BNP 2020-02-04 Rigoberto Menendez [place] 10:01:00 [facility] BLOOD CULTURE SCREEN 2020-02-03 Rigoberto Menendez of 22:19:00 [facility] RENAL ARTERY DUPLEX BY VASCULAR 2020-02-03 Rigoberto Menendez of LAB 17:42:39 [facility] AMMONIA, PLASMA 2020-02-03 Rigoberto Menendez [place] 17:06:00 [facility] SMOOTH MUSCLE AB,IGG W/REFLEX 2020-02-03 Charafeddine, Un iversity of 16:43:00 Nizagunnar C [facility] OCCULT (GUAIAC) BLOOD 2020-02-03 Rigoberto Menendez [place] 16:42:00 [facility] PHOSPHORUS 2020-02-03 Juan Luis, [facility] of 08:45:00 [facility] CREATINE KINASE 2020-02-03 Juan Luis, [facility] of 08:45:00 [facility] URIC ACID 2020-02-03 Juan Luis, [facility] of 08:45:00 [facility] MAGNESIUM 2020-02-03 Juan Luis, [facility] of 08:45:00 [facility] COMP. METABOLIC PANEL ([id number]) 2020-02-03 Rigoberto Menendez iversity of 08:45:00 [facility] CBC WITH DIFF 2020-02-03 Juan Luis, [facility] of 08:45:00 [facility] N-TERMINAL PRO-BNP 2020-02-03 Juan Luis, [facility] of 08:45:00 [facility] BLOOD CULTURE SCREEN 2020-02-02 Juan Luis, [facility] of 20:19:00 [facility] BLOOD CULTURE SCREEN 2020-02-02 Juan Luis, [facility] of 19:58:00 [facility] CERULOPLASMIN 2020-02-02 [facility] 19:58:00 [facility] VAL[facility], FREE 2020-02-02 Juan Luis [facility] o f 19:58:00 [facility] PROTHROMBIN TIME / INR 2020-02-02 [facility] 19:58:00 [facility] ANTI-NUCLEAR ANTIBODY SCREEN 2020-02-02 Ross, [facility] versity of 19:58:00 Arik Rosales [facility] HEPATITIS B SURFACE ANTIBODY 2020-02-02 Juan Luis [facility] Uni versity of 19:58:00 [facility] HEPATITIS B SURFACE ANTIGEN 2020-02-02 Juan Luis [facility] ersity of 19:58:00 [facility] HCV ANTIBODY 2020-02-02 Juan Luis [facility] of 19:58:00 [facility] HAV ANTIBODY (IGG AND IGM) 2020-02-02 [facility] 19:58:00 [facility] PROCALCITONIN 2020-02-02 Juan Luis [facility] of 19:58:00 [facility] BLOOD CULTURE WORKUP 2020-02-02 Juan Luis [facility] of 19:58:00 [facility] CREATINE KINASE 2020-02-02 Juan Luis, [facility] of 11:31:00 [facility] LIPASE 2020-02-02 [facility] of 11:31:00 [facility] COMP. METABOLIC PANEL ([id number]) 2020-02-02 [facility] iversity of 11:31:00 [facility] LIPID PANEL ([id number])(TOTAL 2020-02-02 Rigoberto Menendez [facility] sity of CHOLESTEROL, TRIGLYCERIDES, HDL) 11:31:00 [facility] LITHIUM 2020-02-02 [facility] of 11:31:00 [facility] POCT GLUCOSE (AUTOMATED) 2020-02-02 Pasha Hinojosa [facility] ity of 11:24:00 [facility] LIPASE 2020-02-02 [facility] of 08:21:00 [facility] COMP. METABOLIC PANEL ([id number]) 2020-02-02 [facility] iversity of 08:21:00 [facility] 2020-02-02 Micaela Pasha [place] of 08:21:00 [facility] CBC WITH DIFF 2020-02-02 [facility] of 08:21:00 [facility] GLYCOSYLATED HEMOGLOBIN (A1C) 2020-02-02 Rigoberto Menendez iversity of 08:21:00 [facility] ACUTE CARE VENOUS BLOOD GAS 2020-02-[address] [facility] ersity of 19:23:00 [facility] US ABDOMEN COMPLETE 2020-02-01 [facility] o f 16:39:39 [facility] POCT GLUCOSE (AUTOMATED) 2020-02-01 Pasha Hinojosa [facility] ity of 12:46:00 [facility] LIPASE 2020-02-01 [facility] of 10:09:00 [facility] COMP. METABOLIC PANEL ([id number]) 2020-02-01 [facility] iversity of 10:09:00 [facility] LITHIUM 2020-02-01 [facility] of 10:09:00 [facility] CBC WITH DIFF 2020-02-01 [facility] of 10:09:00 [facility] OSMOLALITY SERUM 2020-02-01 Micaela Pasha [place] of 00:10:00 [facility] VITAMIN B12, LEVEL 2020-02-01 [facility] of 00:10:00 [facility] FOLATE 2020-02-01 Lisandro [facility] of 00:10:00 [facility] ABG+COOX+NA+K+GLU+CA2+ 2020-01-31 Asaf Kirstin [facility] of 20:39:00 [facility] BLOOD CULTURE SCREEN 2020-01-31 Asaf [facility] of 18:21:00 [facility] IRON PANEL 2020-01-31 Pasha Hinojosa [place] of 18:21:00 [facility] SALICYLATE 2020-01-31 Asaf [facility] of 18:21:00 [facility] LITHIUM 2020-01-31 Asaf, [facility] of 18:21:00 [facility] VALPROIC ACID, TOTAL 2020-01-31 Asaf [facility] of 18:21:00 [facility] BLOOD CULTURE WORKUP 2020-01-31 Asaf [facility] of 18:21:00 [facility] ADC OR PERICO ONLY - RPR 2020[facility]01-[facility] 18:21:00 [facility] GRAM POSITIVE BLOOD PATHOGENS DNA 2020-01-31 May Ron [facility] of PROBE-AEROBIC 18:21:00 [facility] XR ABDOMEN 1 VW 2020-01-31 Ron, [facility] of 17:09:26 [facility] XR CHEST 1 VW 2020-01-31 Ron, [facility] of 17:09:26 [facility] [address] HEAD WO CONTRAST 2020-01-31 Ron, [facility] of 16:58:10 [facility] URINALYSIS 2020-01-31 Asaf [facility] of 16:13:00 [facility] URINE CULTURE 2020-01-31 Asaf [facility] of 16:13:00 [facility] ADC / LCC - DRUG SCREEN TRIAGE 2020-01-31 Ron, [facility] of 16:13:00 [facility] COVID-19 (ID NOW RAPID TESTING) 2020-01-31 Asaf [facility] of 16:00:00 [facility] LAB ONLY COVID INTERPRETATION 2020-01-31 Kirstin Ron [facility]iversity of 16:00:00 [facility] BLOOD CULTURE SCREEN 2020-01-31 Asaf [facility] of 15:58:00 [facility] CREATINE KINASE 2020-01-31 [facility] of 15:58:00 [facility] LIPASE 2020-01-31 [facility] of 15:58:00 [facility] FERRITIN SERUM 2020-01-31 [facility] of 15:58:00 [facility] AMMONIA, PLASMA 2020-01-31 [facility] of 15:58:00 [facility] TROPONIN I 2020-01-31 [facility] of 15:58:00 [facility] THYROID STIMULATING HORMONE 2020-01-31 [facility] ersity of 15:58:00 [facility] HEPATIC FUNCTION PANEL ([id number]) 2020-01-31 [facility] of (ALB,T.PRO,BILI 15:58:00 [facility],BU/BC,ALT,AST,ALK PHOS) [place] BASIC METABOLIC PANEL (NA, K, CL, 2020-01-31 [facility] of CO2, GLUCOSE, BUN, CREATININE, CA) 15:58:00 [facility] ETHANOL 2020-01-31 [facility] of 15:58:00 [facility] DIFF CONSULT INTERPRETATION 2020-01-31 [facility] ersity of 15:58:00 [facility] CBC WITH DIFF 2020-01-31 [facility] of 15:58:00 [facility] RETICULOCYTES AUTOMATED 2020-01-31 [facility] of 15:58:00 [facility] N-TERMINAL PRO-BNP 2020-01-31 [facility] o f 15:58:00 [facility] LACTIC ACID WHOLE BLOOD 2020-01-31 [facility] ity of 15:57:00 [facility] EKG-12 LEAD 2020-01-31 [facility] of 15:48:34 [facility] EKG-12 LEAD 2020-01-[address] [place] [address] of 15:40:40 [facility] NOTICE OF PRIVACY PRACTICES 2020-01-31 Doctor Unassigned, U niversity of 15:38:09 [facility] CONSENT/REFUSAL FOR DIAGNOSIS AND 2020-01-31 Doctor Dung santiago, [facility] 15:37:54 [facility] EXTERNAL PROVIDER RECORDS 2020-01-31 Doctor Unassigned, Uni versity of 05:01:00 [place] EMERGENCY DEPARTMENT DOCUMENTS 2020-01-31 Doctor Unasschad , [facility] 05:01:00 [place] HOSPITAL ADM - MISC 2020-01-31 Doctor Unassigned, Universit y of 05:01:00 [facility] ADMISSION 2020-01-31 Doctor Unassigned, University of 05:01:00 [place] CT ABDOMEN PELVIS W CONTRAST 2019-12-18 Meka Hammonds Un iversity of 22:11:19 [facility] URINALYSIS 2019-12-18 [facility] 21:07:00 [facility] LIPASE 2019-12-18 [facility] 20:39:00 [facility] TROPONIN I 2019-12-18 [facility] 20:39:00 [facility] HEPATIC FUNCTION PANEL ([id number]) 2019-12-18 Nasra [facility] (ALB,T.PRO,BILI 20:39:00 [facility],BU/BC,ALT,AST,ALK PHOS) [place] BASIC METABOLIC PANEL (NA, K, CL, 2019-12-18 [facility] CO2, GLUCOSE, BUN, CREATININE, CA) 20:39:00 [facility] CBC WITH DIFF 2019-12-18 [facility] 20:39:00 [facility] CONSENT/REFUSAL FOR DIAGNOSIS AND 2019-12-18 Doctor Dung santiago, [facility] 20:15:38 [facility] XR CHEST 1 VW COVID 2019-08-22 Gabriele Grayson [place] of 01:15:45 [facility] LIPASE 2019-08-22 Gabriele Grayson [facility] 01:00:00 [facility] TROPONIN I 2019-08-22 Gabriele Grayson [place] of 01:00:00 [facility] COMP. METABOLIC PANEL ([id number]) 2019-08-22 Gabriele Grayson U niversity of 01:00:00 [facility] CBC WITH DIFFERENTIAL 2019-08-22 [facility] 01:00:00 [facility] PROTHROMBIN TIME / INR 2019-08-22 Yarima, [facility] ty of 01:00:00 [facility] ACTIVATED PARTIAL THRMPLAS KIMANI 2019-08-22 [facility] of 01:00:00 [facility] URINALYSIS 2019-08-22 [facility] of 01:00:00 [facility] CORONAVIRUS COVID-19 TESTING 2019-08-22 [facility] Un iversity of 01:00:00 [facility] EKG-12 LEAD 2019-08-22 [facility] of 00:52:01 [facility] CONSENT/REFUSAL FOR DIAGNOSIS AND 2019-08-22 [facility] 00:30:30 [place] LIPASE 2019-06-25 [facility] of 22:49:00 [facility] TROPONIN I 2019-06-25 [facility] of 22:49:00 [facility] HEPATIC FUNCTION PANEL ([id number]) 2019-06-25 [facility] of (ALB,T.PRO,BILI 22:49:00 [facility],BU/BC,ALT,AST,ALK PHOS) [place] BASIC METABOLIC PANEL (NA, K, CL, 2019-06-25 [facility] of CO2, GLUCOSE, BUN, CREATININE, CA) 22:49:00 [facility] CBC WITH DIFFERENTIAL 2019-06-25 [facility] y of 22:49:00 [facility] EKG-12 LEAD 2019-06-25 [facility] of 22:33:31 [facility] URINALYSIS 2019-06-25 [facility] of 22:13:00 [facility] LIPASE 2019-06-19 [facility] of 20:30:00 [facility] TEST, SERUM 2019-06-19 [facility] ty of 20:30:00 [facility] HEPATIC FUNCTION PANEL ([id number]) 2019-06-19 [facility] of (ALB,T.PRO,BILI 20:30:00 [facility] T,BU/BC,ALT,AST,ALK PHOS) [place] BASIC METABOLIC PANEL (NA, K, CL, 2019-06-19 [facility] of CO2, GLUCOSE, BUN, CREATININE, CA) 20:30:00 [facility] CBC WITH DIFFERENTIAL 2019-06-19 [facility] ty of 20:30:00 [facility] URINALYSIS 2019-06-[address] [facility] of 20:30:00 [facility] CONSENT/REFUSAL FOR DIAGNOSIS AND 2019-06-19 Doctor Dung santiago, [place] [facility] 19:35:06 [place] CT ABDOMEN PELVIS W CONTRAST 2019-05-20 [facility] 02:03:54 [facility] LIPASE 2019-05-20 [facility] of 01:07:00 [facility] COMP. METABOLIC PANEL ([id number]) 2019-05-20 [facility] iversity of 01:07:00 [facility] CBC WITH DIFFERENTIAL 2019-05-20 [facility] of 01:07:00 [facility] URINALYSIS 2019-05-20 [facility] of 01:07:00 [facility] NOTICE OF PRIVACY PRACTICES 2019-05-20 Doctor Unasschad, U niversity of 00:08:29 [place] CONSENT/REFUSAL FOR DIAGNOSIS AND 2019-05-20 [facility] 00:08:14 [place] CT ANKLE RIGHT WO CONTRAST 2018-12-[address] [facility] of 16:22:01 [facility] XR FOOT 3+ VW RIGHT 2018-12-01 Jaki Polanco [facility] o f 19:59:31 [facility] XR TIBIA FIBULA 2 VW RIGHT 2018-12-01 Jaki Polanco [facility] rsity of 19:59:07 [facility] BASIC METABOLIC PANEL (NA, K, CL, 2018-11-16 [facility] of CO2, GLUCOSE, BUN, CREATININE, CA) 09:31:00 [facility] CBC WITH DIFFERENTIAL 2018-11-16 [facility] of 09:31:00 [facility] ABORH CONFIRMATION 2018-11-16 [facility] of 00:34:00 [facility] URINE CULTURE 2018-11-16 [facility] of 00:00:00 [facility] URINALYSIS 2018-11-15 [facility] of 23:58:00 [facility] TYPE AND SCREEN 2018-11-15 [facility] of 23:00:00 [facility] TROPONIN I 2018-11-15 [facility] of 21:08:00 [facility] LIPID PANEL ([id number])(TOTAL 2018-11-15 [facility] CHOLESTEROL, TRIGLYCERIDES, HDL) 21:08:[address] [facility] [address] ABDOMEN PELVIS W CONTRAST 2018-11-15 Mariana Ramirez versity of 16:32:45 [facility] HELICOBACTER PYLORI AB, IGG 2018-11-15 [facility] ersity of 15:51:00 [facility] HEPATITIS B SURFACE ANTIBODY 2018-11-15 Mariana Ramirez versity of 15:51:00 [facility] HCV ANTIBODY 2018-11-15 Mariana Ramirez of 15:51:00 [facility] HEPATITIS A VIRUS ANTIBODY IGM 2018-11-15 Mariana Ramirez niversity of 15:51:00 [facility] HEPATITIS B CORE ANTIBODY IGM 2018-11-15 Mariana Ramirez iversity of 15:51:00 [facility] ACETAMINOPHEN 2018-11-15 Mariana Ramirez of 15:50:00 [facility] XR CHEST 1 VW 2018-11-15 Mariana Ramirez of 15:08:18 [facility] LIPASE 2018-11-15 Mariana Ramirez of 14:40:00 [facility] TROPONIN I 2018-11-15 Mariana Ramirez of 14:40:00 [facility] HEPATIC FUNCTION PANEL ([id number]) 2018-11-15 Mariana Ramirez niversity of (ALB,T.PRO,BILI 14:40:00 [facility],BU/BC,ALT,AST,ALK PHOS) [place] BASIC METABOLIC PANEL (NA, K, CL, 2018-11-15 Florina Ramirez [place] of CO2, GLUCOSE, BUN, CREATININE, CA) 14:40:00 [facility] CBC WITH DIFFERENTIAL 2018-11-15 Mariana Ramirez of 14:40:00 [facility] GLYCOSYLATED HEMOGLOBIN (A1C) 2018-11-15 [facility] iversity of 14:40:00 [facility] PROTHROMBIN TIME / INR 2018-11-15 Mariana Ramirez Universit y of 14:40:00 [facility] ACTIVATED PARTIAL THRMPLAS KIMANI 2018-11-15 Mariana Ramirez U niversity of 14:40:00 [facility] N-TERMINAL PRO-BNP 2018-11-15 Mariana Ramirez [place] of 14:40:00 [facility] EKG-12 LEAD 2018-11-15 Mariana Ramirez [place] of 14:26:03 [facility] CONSENT/REFUSAL FOR DIAGNOSIS AND 2018-11-15 [facility] 14:13:05 [facility] Plan of Care Planned Activity Planned Date Details Comments Source Future Scheduled 2023-09-01 Screening for malignant [facility] 00:00:00 neoplasm of colon Medical Ce nter (procedure) [code = 150817094] Future Scheduled 2023-09-01 Screening for malignant [facility] 00:00:00 neoplasm of colon Medical Ce [facility]ter (procedure) [code = 826831689] Future Scheduled 2023-09-01 Screening for malignant [facility] 00:00:00 neoplasm of colon Medical Ce nter (procedure) [code = 932270612] Future Scheduled 2023-09-01 Screening for malignant [facility] 00:00:00 neoplasm of colon Medical Ce nter (procedure) [code = 323653719] Future Scheduled 2023-09-01 Screening for malignant [facility] 00:00:00 neoplasm of colon Medical Ce nter (procedure) [code = 651197836] Future Scheduled 2023-09-01 Screening for malignant [facility] 00:00:00 neoplasm of colon Medical Ce nter (procedure) [code = 449941813] Future Scheduled 2023-09-01 Screening for malignant [facility] 00:00:00 neoplasm of colon Medical Ce nter (procedure) [code = 230449020] Future Scheduled 2023-09-01 Screening for malignant [facility] 00:00:00 neoplasm of colon Medical Ce nter (procedure) [code = 386782067] Future Scheduled 2023-09-01 Screening for malignant [facility] 00:00:00 neoplasm of colon Medical Ce nter (procedure) [code = 886526728] Future Scheduled 2023-09-01 Screening for malignant [facility] 00:00:00 neoplasm of colon Medical Ce nter (procedure) [code = 562596249] Future Scheduled 2023-09-01 Screening for malignant [facility] 00:00:00 neoplasm of colon Medical Ce nter (procedure) [code = 098791062] Future Scheduled 2023-09-01 Screening for malignant [facility] 00:00:00 neoplasm of colon Medical Ce nter (procedure) [code = 505634750] Future Scheduled 2023-02-01 Lipid panel (procedure) [facility] 00:00:00 [code = 46690243] Medical Ce nter Future Scheduled 2023-02-01 Lipid panel (procedure) [facility] 00:00:00 [code = 11034882] Medical Ce nter Future Scheduled 2023-02-01 Lipid panel (procedure) [facility] 00:00:00 [code = 68247677] Medical Ce nter Future Scheduled 2023-02-01 Lipid panel (procedure) [facility] 00:00:00 [code = 23032379] Medical Ce nter Future Scheduled 2023-02-01 Lipid panel (procedure) [facility] 00:00:00 [code = 64087474] Medical Ce nter Future Scheduled 2023-02-01 Lipid panel (procedure) [facility] 00:00:00 [code = 27273889] Medical Ce nter Future Scheduled 2022-12-[address] [facility] 00:00:00 (Season Ended) [code = Medic al Center INFLUENZA VACCINE (Season Ended)] Future Scheduled 2022-12-[address] [facility] 00:00:00 (Season Ended) [code = Medic al Center INFLUENZA VACCINE (Season Ended)] Future Scheduled 2022-12-[address] [facility] 00:00:00 (Season Ended) [code = Medic al Center INFLUENZA VACCINE (Season Ended)] Future Scheduled 2022-04-[address] [facility] 00:00:00 (12+) [code = Medical Center DEPRESSION SCREENING (12+)] Future Scheduled 2022-04-[address] [facility] 00:00:00 (12+) [code = Medical Center DEPRESSION SCREENING (12+)] Future Scheduled 2022-04-[address] [facility] 00:00:00 (12+) [code = Medical Center DEPRESSION SCREENING (12+)] Future Scheduled 2021-12-14 INFLUENZA VACCINE (#1) [facility]00 [code = INFLUENZA Medical Ce nter VACCINE (#1)] Future Scheduled 2021-12-14 INFLUENZA VACCINE (#1) [facility] 00:00:00 [code = INFLUENZA Medical Ce nter VACCINE (#1)] Future Scheduled 2021-12-14 INFLUENZA VACCINE (#1) [facility] 00:00:00 [code = INFLUENZA Medical Ce nter VACCINE (#1)] Future Scheduled 2021-09-[address] [facility] 00:00:00 Counseling and Medical Cente r Screening (12+) [code = Tobacco Cessation Counseling and Screening (12+)] Future Scheduled 2021-09-[address] [facility] 00:00:00 [facility]ing and Medical Cente r Screening (12+) [code = Tobacco Cessation Counseling and Screening (12+)] Future Scheduled 2021-09-[address] [facility] 00:00:00 Counseling and Medical Cente r Screening (12+) [code = Tobacco Cessation Counseling and Screening (12+)] Future Scheduled 2021-04-15 DEPRESSION SCREENING [facility] [...] - Booster for [employer] series)] Future Scheduled 2020-09-13 COVID-19 VACCINE (3 - [facility] series) [code = COVID-19 VACCINE (3 - [employer] series)] Future Scheduled 2020-09-13 COVID-19 VACCINE (3 - [facility] series) [code = COVID-19 VACCINE (3 - Booster for [employer] series)] Future Scheduled 2020-09-13 COVID-19 VACCINE (3 - [facility] [...] cervix Medical C enter (procedure) [code = 814932557] Future Scheduled 1983-11-02 Screening for malignant [facility] 00:00:00 neoplasm of cervix Medical C enter (procedure) [code = 438548767] Future Scheduled 1983-11-02 Screening for malignant [facility] 00:00:00 neoplasm of cervix Medical C enter (procedure) [code = 768835397] Future Scheduled 1983-11-02 Screening for malignant [facility] 00:00:00 neoplasm of cervix Medical C enter (procedure) [code = 700734655] Future Scheduled 1983-11-02 Screening for malignant [facility] 00:00:00 neoplasm of cervix Medical C enter (procedure) [code = 327451110] Future Scheduled 1983-11-02 Screening for malignant [facility] 00:00:00 neoplasm of cervix Medical C enter (procedure) [code = 445787466] Future Scheduled 1981 DTAP/TDAP/TD VACCINES CH I [...] breast Medical C enter (procedure) [code = 036221528] Future Scheduled 1962 CT Colonography (combo) [facility] 00:00:00 [code = CT Colonography [facility] (combo)] Future Scheduled 1962 Screening for malignant [facility] 00:00:00 neoplasm of colon Medical Ce nter (procedure) [code = 467974896] Future Scheduled 1962 Screening for malignant [facility] 00:00:00 neoplasm of colon Medical Ce nter (procedure) [code = 265779991] Future Scheduled 1962 Sigmoidoscopy [code = [facility] Screening for malignant [facility] 00:00:00 neoplasm of breast Medical C enter (procedure) [code = 604366436] Future Scheduled 1962 CT Colonography (combo) [facility] 00:00:00 [code = [facility] ([facility] Future Scheduled 1962 Screening for malignant [facility] 00:00:00 neoplasm of colon Medical Ce nter (procedure) [code = 536740950] Future Scheduled 1962 Screening for malignant [facility] 00:00:00 neoplasm of colon Medical Ce nter (procedure) [code = 312228627] Future Scheduled 1962 Sigmoidoscopy [facility]code = [facility]] Medical Cente r Future Scheduled 1962 Screening for malignant [facility] 00:00:00 neoplasm of breast Medical C enter (procedure) [code = 810122370] Future Scheduled 1962 CT Colonography (combo) [facility] 00:00:00 [code = CT [facility] ([facility])] Future Scheduled 1962 Screening for malignant [facility] 00:00:00 neoplasm of colon Medical Ce nter (procedure) [code = 328750749] Future Scheduled 1962 Screening for malignant [facility] 00:00:00 neoplasm of colon Medical Ce nter (procedure) [code = 762712218] Future Scheduled 1962 Sigmoidoscopy [code = [facility]oscopy] Medical Cente r Future Scheduled 1962 Screening for malignant [facility] 00:00:00 neoplasm of breast Medical C enter (procedure) [code = 317484821] Future Scheduled 1962 CT Colonography (combo) [facility] 00:00:00 [code = CT [facility] ([facility])] Future Scheduled 1962 Screening for malignant [facility] 00:00:00 neoplasm of colon Medical Ce nter (procedure) [code = 197571841] Future Scheduled 1962 Screening for malignant [facility] 00:00:00 neoplasm of colon Medical Ce nter (procedure) [code = 125580563] Future Scheduled 1962 Sigmoidoscopy [facility]code [facility]oscopy] Medical Cente r Future Scheduled 1962 Screening for malignant [facility] 00:00:00 neoplasm of breast Medical C enter (procedure) [code = 951170454] Future Scheduled 1962 CT Colonography (combo) [facility] 00:00:00 [code = CT [facility] ([facility])] Future Scheduled 1962 Screening for malignant [facility] 00:00:00 neoplasm of colon Medical Ce nter (procedure) [code = 168788621] Future Scheduled 1962 Screening for malignant [facility] 00:00:00 neoplasm of colon Medical Ce nter (procedure) [code = 016230736] Future Scheduled 1962 Sigmoidoscopy [facility]code = [facility] S[facility]oscopy] Medical Cente r Future Scheduled 1962 Screening for malignant [facility] 00:00:00 neoplasm of breast Medical C enter (procedure) [code = 001144036] Future Scheduled 1962 CT Colonography (combo) [facility] Test 00:00:00 [code = CT [facility] (combo)] Future Scheduled 1962 Screening for malignant [facility] Test 00:00:00 neoplasm of colon Medical Ce nter (procedure) [code = 566576451] Future Scheduled 1962 Screening for malignant [facility] Test 00:00:00 neoplasm of colon Medical Ce nter (procedure) [code = 549871873] Future Scheduled 1960 Sigmoidoscopy [code [facility] Test 00:[facility]] Medical Cente r Encounters Start End Encounter Admission Attending Care Care Encounter Source Date/Time Date/Time Type Type Clinicians Facility Department ID 2022-07-[address] [facility] [id number] Common 10:48:01 Belinda [id number] [facility] 2022-05-16 Outpatient RUIZ Osman [facility] [id number] Common 14:15:01 Belinda 00018 [facility] 2022-02-26 Outpatient Slade, Na STLMLC STLMLC [id number] 2 Common 11:44:00 [facility] 2022-02-22 Outpatient Slade, Na STLMLC STLMLC [id number] 2 Common 15:04:00 [facility] 2022-01-10 Outpatient Slade, Na STLMLC STLMLC [id number] 2 Common 11:30:01 [facility] 2021-12-29 Outpatient Slade, Na STLMLC STLMLC [id number] 2 Common 09:54:01 [facility] 2021-12-26 Outpatient Slade, Na STLMLC STLMLC [id number] 2 Common 08:22:00 [facility] 2021-12-22 Outpatient Slade, Na STLMLC STLMLC [id number] 2 Common 08:47:00 [facility] 2021-09-19 Outpatient Slade, Na STLMLC STLMLC [id number] 2 Common 13:44:00 [facility] 2021-08-16 Outpatient Slade, Na STLMLC STLMLC [id number] 2 Common 08:30:01 [facility] 2021-06-14 Outpatient Slade, Na STLMLC STLMLC [id number] 2 Common 10:15:02 [facility] 2021-05-25 Outpatient Gunnar PIPER [facility] JARROD [id number] Univers 16:04:35 [facility] 2021-05-10 Outpatient Slade, Na STLMLC STLMLC [id number] 2 Common 14:36:16 [facility] 2021-05-10 Outpatient Slade, Na STLMLC STLMLC [id number] 2 Common 14:35:31 [facility] 2021-05-10 Outpatient Slade, Na STLMLC STLMLC [id number] 2 Common 14:33:15 [facility] 2021-05-10 Outpatient Slade, Na STLMLC STLMLC [id number] 2 Common 14:26:40 [facility] 2021-05-10 Outpatient Slade, Na STLMLC STLMLC [id number] 2 Common 14:26:20 [id number] [facility] 2021-05-10 Outpatient Slade, Na STLMLC STLMLC [id number] 2 Common 13:09:45 [id number] [facility] 2021-05-10 Outpatient Slade, Na STLMLC STLMLC [id number] 2 Common 12:53:19 [id number] [facility] 2021-05-10 Outpatient Slade, Na STLMLC STLMLC [id number] 2 Common 12:44:09 [id number] [facility] 2021-05-10 Outpatient Slade, Na STLMLC STLMLC [id number] 2 Common 12:41:43 [id number] [facility] 2021-05-10 Outpatient Slade, Na STLMLC STLMLC [id number] 2 Common 12:14:04 [id number] [facility] 2021-05-10 Outpatient Slade, Na STLMLC STLMLC [id number] 2 Common 12:09:45 [id number] [facility] 2021-05-10 Outpatient Salde, Na STLMLC STLMLC [id number] 2 Common 12:08:20 [id number] [facility] 2021-05-10 Outpatient Slade, Na STLMLC STLMLC [id number] 2 Common 11:31:43 [id number] [facility] 2021-05-10 Outpatient Slade, Na STLMLC STLMLC [id number] 2 Common 11:27:56 [id number] [facility] 2021-05-10 Outpatient Slade, Na STLMLC STLMLC [id number] 2 Common 11:27:26 [id number] [facility] 2021-05-10 Outpatient Slade, Na STLMLC STLMLC [id number] 2 Common 11:16:24 [id number] [facility] 2021-04-12 Outpatient R KODI [facility] [id number] Univers 10:13:10 ARIK Stokes [facility] 2021-02-12 Outpatient R KEIRA [facility] JARROD [id number] Univers 02:51:20 MOISE ity of [facility] 2021-02-11 Emergency [facility] [id number] Univers 18:57:51 ity of [facility] 2021-02-11 Emergency [facility] [id number] Univers 10:52:36 ity of [facility] 2021-02-10 Emergency [facility] [id number] Univers 23:34:27 ity of [facility] 2021-02-10 Emergency [facility] [id number] Univers 16:03:46 ity of [facility] 2021-02-09 Emergency [facility] [id number] Univers 14:07:13 ity of [facility] 2021-02-09 Emergency [facility] [id number] Univers 13:02:51 ity [facility] 2021-01-21 Outpatient PENNY, [facility] Surgery [id number] [facility] 22:26:45 GOTTI 2021-01-21 Inpatient ER NGUYỄN, [facility] Gastro [id number] [facility] 22:24:24 2021-01-21 Outpatient PENNY, [facility] Surgery [id number] [facility] 18:10:30 [facility] 2020-08-26 Inpatient ER NGUYỄN, [facility] General Med [id number] [facility] 02:30:00 2022-08-01 2022-08-01 Transition NHAN [place] 1.2.840.114 [id number] Univers 00:00:00 00:00:00 of Care Kalp[facility]13.[facility] [id number] [address] 2022-07-30 2022-07-31 Outpatient Yue MAXWELL TXMICHOACANO [place] [id number] Univers 15:34:00 16:15:00 [facility]22-07-30 2022-07-31 Emergency Mariana Ramirez [facility] 1.2.840. 114 [id number] Univers 15:34:00 16:15:00 Marie Maxwell 350.1.13.10 ity of Madhav NicoleCLARK 4.2.7.2.686 [facility] [id number] [facility] [address] 2022-05-16 2022-05-16 (TEL) STLMLC STLMLC [id number] Co mmon 00:00:00 00:00:00 [facility] 2022-04-27 2022-04-27 Transition NHAN Hussein 1.2.840.114 [id number] Univers 00:00:00 00:00:00 of Juan Leonardoet ELMA 350.1.13.10 it y of [place].2.[place] [id number] [facility] [address] 2022-04-25 2022-04-26 Outpatient X MICAELA [facility] [place] [id number] Univers 16:51:00 16:15:00 PASHA ity of [facility] 2022-04-25 2022-04-26 Emergency Jadyn Skaggs [facility] 1.2.840. 114 [id number] Univers 16:51:00 16:15:00 Rigoberto Menendez 350.1.13.10 ity of Pasha Hinojosa 4.2.7.2.686 [facility] [id number] [facility] [address] 2022-04-08 2022-04-08 Emergency X AUFDERIDE [facility] ERT [id number] Univers 13:18:00 15:19:00 , JUDY ity of [facility] 2022-04-08 2022-04-08 [facility] 1.2.840.114 [id number] Univers 13:18:00 15:19:00 , Judy MARCUM 350.1.13.10 i ty of [place] [id number] [facility] [address] 2022-03-27 2022-03-27 (TEL) STLMLC STLMLC [id number] Co mmon 00:00:00 00:00:00 [facility] 2022-03-05 2022-03-05 (TEL) STLMLC STLMLC [id number] Co mmon 00:00:00 00:00:00 [facility] 2022-02-28 2022-02-28 (TEL) STLMLC STLMLC [id number] Co mmon 00:00:00 00:00:00 [facility] 2022-02-22 2022-02-22 OFFICE STLMLC STLMLC [id number] Co mmon 00:00:00 00:00:00 VISIT NEW Spir it PT LEVEL 4 - [facility] 2022-02-21 2022-02-21 (TEL) STLMLC STLMLC [id number] Co mmon 00:00:00 00:00:00 [facility] 2022-02-08 2022-02-08 (TEL) STLMLC STLMLC [id number] Co mmon 00:00:00 00:00:00 [facility] 2022-02-07 2022-02-07 Transition NHAN Hussein 1.2.840.114 [id number] Univers 00:00:00 00:00:00 of Care Lanny CASILLASY 350.1.13.10 it y of [place] 4.2.7.2.686 [facility] [id number] [facility] [address] 2022-02-03 2022-02-06 Outpatient X ALISSA TXMICHOACANO [place] [id number] Univers 10:41:00 19:47:00 ELYSSA li [facility] 2022-02-03 2022-02-06 [facility] Nguyễn Montano [facility] 1.2.840.11 [id number] Univers 10:41:00 19:47:00 Encounter Elyssa Maxwell 350.1.13.10 ity [facility] 4.2.7.2.686 [facility] [phone] [facility] brandy 0[address] 2022-02-01 2022-02-01 (TEL) STLMLC STLMLC [id number] Co mmon 00:00:00 00:00:00 [facility] 2022-01-26 2022-01-26 Emergency X NASRA [facility] ERT [id number] Univers 15:28:00 19:45:00 MEKA li [facility] 2022-01-26 2022-01-26 Emergency [facility], [facility] 1.2.228.658 [id number] Univers 15:28:00 19:45:00 Meka MARCUM 350.1.13.10 ity [facility] 4.2.7.2.686 [facility] [id number] [facility] [address] [place] 2022-01-10 2022-01-10 (TEL) [facility] STLC [id number] Co mmon 00:00:00 00:00:00 [facility] 2022-01-02 2022-01-02 [facility] [id number] Univers 10:00:00 10:00:00 VIRA li [facility] 2022-01-02 2022-01-02 Orders Doctor HAMMER 1.2.840.114 [id number] Univers 00:00:00 00:00:00 Only Unassigned, BIANCA 350.1.13.10 ity of [facility] 4.2.7.2.[address] [place] [address] [phone] [facility] [address] [place] 2021-12-13 2021-12-13 (TEL) [facility] STLC [id number] Co mmon 00:00:00 00:00:00 [facility] 2021-11-13 2021-11-13 (TEL) [facility] STLC [id number] Co mmon 00:00:00 00:00:00 [facility] 2021-11-02 2021-11-02 Emergency [facility] [id number] Univers 04:35:00 08:22:00 MARIANA li [facility] 2021-11-02 2021-11-02 Emergency [facility] 1.2.004.079 [id number] Univers 04:35:00 08:22:00 Mariana MARCUM 350.1.13.10 i ty of [facility] 4.2.7.2.686 [facility] [phone] [facility] [address] [place] 2021-10-25 2021-10-25 Orders Doctor HAMMER 1.2.840.114 [id number] Univers 00:00:00 00:00:00 Only Unassigned, BIANCA 350.1.13.10 ity of [place] [facility] 4.2.7.2.686 Archie as [phone] [place] [address] [address] 2021-10-19 2021-10-19 (TEL) STLMLC STLMLC [id number] Co mmon 00:00:00 00:00:00 [facility] 2021-10-18 2021-10-18 (TEL) STLMLC STLMLC [id number] Co mmon 00:00:00 00:00:00 [facility] 2021-10-06 2021-10-06 (TEL) STLMLC STLMLC [id number] Co mmon 00:00:00 00:00:00 [facility] 2021-09-29 2021-09-29 [facility] [id number] Univers 06:25:00 10:55:00 ZULEMA li of [facility] 2021-09-29 2021-09-29 [facility] 1.2.840.114 [id number] Univers 06:25:00 10:55:00 Encounter Zulema MARCUM 350.1.13.10 ity of [place] [id number] [facility] [address] 2021-09-29 2021-09-29 Surgery [facility] 1.2.840.114 [id number] Univers 07:45:00 10:15:00 Zulema MARCUM 350.1.13.10 ity of [facility] 4.2.7.2.[place] [phone] [facility] 0[address] 2021-09-29 2021-09-29 Anesthesia Abe Arana [facility] 1.2.840.11 [id number] Univers 07:57:00 09:44:00 Event Elyssa Jerome 350.1.13.10 ity of [facility] 4.2.7.2.[place] [id number] [facility] [address] 2021-09-29 2021-09-29 Orders Doctor HAMMER 1.2.840.114 [id number] Univers 00:00:00 00:00:00 Only Unassigned, BIANCA 350.1.13.10 ity of [place] [facility] 4.2.7.2.686 Archie as [phone] [facility] 009 [address] 2021-09-27 2021-09-27 Laboratory Only, Adc Test [facility] 1.2.840. 114 [id number] Univers 08:30:00 08:45:00 Only Zulema Rodriguez 350.1.13.10 ity of [place].2.7.2.[place] [id number] [facility] 353 [address] 2021-09-27 2021-09-27 Outpatient R JENNIFER DENNY, [facility] [id number] Univers 08:30:00 08:30:00 ZULEMA itshey [facility] 2021-09-27 2021-09-27 Fish Pitcher Elizabeth, Adc Lab Main [facility] 1.2.8 40.114 [id number] Univers 08:15:00 08:30:00 Visit Zulema Rodriguez 350.1.13.10 ity of [place].2.7.2.[place] [facility] [phone] Nv dical [facility] 353 [address] BUILDING 2021-09-27 2021-09-27 Orders Doctor JAQUELIN 1.2.840.114 [id number] Univers 00:00:00 00:00:00 Only Unassigned, BIANCA 350.1.13.10 ity of [place] [facility] 4.2.7.2.686 Archie as [phone] [facility] 009 [address] 2021-09-21 2021-09-21 OFFICE [facility] [id number] Co mmon 00:00:00 00:00:00 VISIT Spirit ESTAB PT - CHI LEVEL 4 [facility] 2021-09-12 2021-09-12 Transition NHAN Abdi 1.2.840.114 [id number] Univers 00:00:00 00:00:00 of Care Cyn WILLS 350.1.13.10 i ty of [place]2.[place]2.[place] [id number] [facility] 403 [address] 2021-09-01 2021-09-08 Inpatient X ALISHA [facility] [place] [id number] Univers 13:22:00 17:57:00 RAF li [facility] 2021-09-01 2021-09-08 [facility] Jaki Polanco 1.2.840.1 14 [id number] Univers 13:22:00 17:57:00 Encounter Raf Greene BIANCA 350.1.1 3.10 ity [facility] 4.2.7.2.686 [place] [id number] [facility] 095 [address] 2021-09-08 2021-09-08 (TEL) STLMLC STLMLC [id number] Co mmon 00:00:00 00:00:00 [facility] 2021-08-27 2021-08-27 Emergency [facility] [id number] Univers 10:45:00 15:33:00 MARU li [facility] 2021-08-27 2021-08-27 Emergency [facility] 1.2.840.114 [id number] Univers 10:45:00 15:33:00 Maru MARCUM 350.1.13.10 ity [facility] 4.2.7.2.686 [facility] [phone] [facility] 084 [address] 2021-08-25 2021-08-25 (TEL) STLMLC STLMLC [id number] Co mmon 00:00:00 00:00:00 [facility] 2021-08-22 2021-08-22 (TEL) STLMLC STLMLC [id number] Co mmon 00:00:00 00:00:00 [facility] 2021-08-07 2021-08-07 OFFICE STLMLC STLMLC [id number] Co mmon 00:00:00 00:00:00 VISIT EST Spir it PT LEVEL 3 - [facility] 2021-08-01 2021-08-01 (TEL) STLMLC STLMLC [id number] Co mmon 00:00:00 00:00:00 [facility] 2021-08-01 2021-08-01 Transition NHAN Hussein 1.2.840.114 [id number] Univers 00:00:00 00:00:00 of Care Lanny WILLS 350.1.13.10 it y of [place]2.[place].2.[place] [id number] [facility] [address] 2021-07-23 2021-07-29 Inpatient X AIDAN [facility] [place] [id number] Univers 15:34:00 13:50:00 DANIEL ity of [facility] 2021-07-23 2021-07-29 [facility] Meka Hammonds [facility] 1.2.840. 114 [id number] Univers 15:34:00 13:50:00 Encounter Pasha Hinojosa 350.1.13.10 ity of [place] 4.2.7.2.686 [facility] [phone] [facility] 081 [address] 2021-07-04 2021-07-04 [facility] JARROD [id number] Univers 10:42:00 13:20:00 GULSHAN ity of [facility] 2021-07-04 2021-07-04 [facility] 1.2.277.725 [id number] Univers 10:42:00 13:20:00 Encounter Gulshan MARCUM 350.1.13.10 ity of [place].2.[place] SUR[place]ICAL [phone] [facility] 071 [address] 2021-07-04 2021-07-04 Surgery [facility] 1.2.840.114 [id number] Univers 12:00:00 12:39:00 Gulshan MARCUM 350.1.13.10 i ty of [place].2.[place]ICAL [id number] [facility] ica CENTER 020 [address] 2021-07-04 2021-07-04 Orders Doctor HAMMER 1.2.840.114 [id number] Univers 00:00:00 00:00:00 Only Unassigned, BIANCA 350.1.13.10 ity of [place] [facility] 4.2.7.2.686 Archie as [phone] [facility] 009 [address] 2021-06-15 2021-06-15 [facility] [id number] Co mmon 00:00:00 00:00:00 VISIT [facility] LEVEL 4 [facility] 2021-06-12 2021-06-12 (TEL) [facility] STLC [id number] Co mmon 00:00:00 00:00:00 [facility] 2021-06-05 2021-06-05 Outpatient Gunnar PIPER [facility] [id number] Univers 10:30:00 10:30:00 GULSHAN shey [facility] 2021-06-03 2021-06-03 Emergency [facility] E[facility] [id number] Univers 14:00:00 22:08:00 MARIANA shey [facility] 2021-06-03 2021-06-03 Emergency [facility] 1.2.512.569 [id number] Univers 14:00:00 22:08:00 Mariana MARCUM 350.1.13.10 i ty of [place] 4.2.7.2.686 [facility] [id number] [address] 2021-06-01 2021-06-01 (TEL) [facility] [id number] Co mmon 00:00:00 00:00:00 [facility] 2021-05-21 2021-05-22 Emergency X ELIZABETHMITZYFalguni, [facility] ERT [id number] Univers 23:29:00 01:11:00 CONSUELO shey [facility] 2021-05-21 2021-05-22 [facility] 1.2.840.114 [id number] Univers 23:29:00 01:11:00 Consuelo MARCUM 350.1.13.10 i ty of [place] 4.2.7.2.686 [facility] [phone] [address] 2021-05-19 2021-05-19 JAQUELIN Greene 1.2.840.114 [id number] Univers 00:00:00 00:00:00 (Out) Kelsy VÁZQUEZ 350.1.13.10 it y of [facility] 4.2.7.2.686 Archie as [id number] [place] [address] [place] 2021-05-19 2021-05-19 Telephone Nurse, Phillip [facility] 1.2.840.114 [id number] Univers 00:00:00 00:00:00 Db Urgent HEALTH 350.1.13.10 ity of Care [place] 4.2.7.2.686 Archie as GRACIE?BLEA [id number] [address] MEDICAL OFFICE BUILDING 2021-05-18 2021-05-18 Outpatient R JAROCHO [facility] [id number] Univers 09:00:00 09:41:26 RANJUSTYNA ity of [facility] 2021-05-18 2021-05-18 Urgent Ranjitfalguni Consuelo [facility] 1.2.840.114 [id number] Univers 09:00:00 09:20:00 Care [place], Korina HEALTH 350.1.13.10 ity of [place] 4.2.7.2.686 Archie as GRACIE?BLEA [id number] [address] MEDICAL OFFICE [facility] 2021-05-18 2021-05-18 Letter Doctor JAQUELIN 1.2.840.114 [id number] Univers 00:00:00 00:00:00 (Out) Unassigned, BIANCA 350.1.13.10 [facility] 4.2.7.2.686 Archie as [phone] [address] 2021-05-15 2021-05-15 (TEL) STLC STLC [id number] Co mmon 00:00:00 00:00:00 [facility] 2021-05-09 2021-05-09 (TEL) STLC STLMLC [id number] Co mmon 00:00:00 00:00:00 [facility] 2021-04-19 2021-04-19 (TEL) STLC STLMLC [id number] Co mmon 00:00:00 00:00:00 [facility] 2021-04-18 2021-04-18 Outpatient R KODI [facility] [id number] Univers 10:15:00 10:15:00 ARIK Stokes [facility] 2021-04-15 2021-04-15 Emergency Ebrahim, [facility] 1.2.840.114 [id number] Univers 13:41:00 15:39:00 Consuelo MARCUM 350.1.13.10 i ty of [facility] 4.2.7.2.686 [facility] [id number] [address] 2021-04-15 2021-04-15 Nurse Nurse, Phillip [facility] 1.2.840.114 [id number] Univers 13:20:00 13:40:00 [facility] 350.1.13.10 ity of [place] 4.2.7.2.686 Archie as GRACIE?BLEA [phone] [address] MEDICAL OFFICE BUILDING 2021-04-15 2021-04-15 Outpatient Gunnar ALBERTO [facility] [id number] Univers 13:20:00 13:37:39 KORINA ity [facility] 2021-04-15 2021-04-15 Outpatient [facility] ERT [id number] Univers 13:20:00 13:37:39 KORINA ity [facility] 2021-04-03 2021-04-03 OFFICE STLMLC STLC [id number] Co mmon 00:00:00 00:00:00 VISIT EST Spir it PT LEVEL 3 - [facility] 2021-03-31 2021-03-31 (TEL) STLMLC STLMLC [id number] Co mmon 00:00:00 00:00:00 Spirit - [facility] 2021-03-25 2021-03-25 Emergency X EBRAHIM, [facility] ERT [id number] Univers 18:03:00 21:41:00 RANIA ity [facility] 2021-03-25 2021-03-25 Emergency Ebrahim, [facility] 1.2.840.114 [id number] Univers 18:03:00 21:41:00 Consuelo MARCUM 350.1.13.10 i ty of [facility] 4.2.7.2.686 [facility] [id number] [address] 2021-03-25 2021-03-25 Outpatient Gunnar PALACIO [facility] [id number] Univers 11:40:00 11:23:42 OLGA LIDIA li [facility] 2021-03-25 2021-03-25 Imm/Inj Vaccine, Ang Db [facility] 1.2.840 .114 [id number] Univers 11:00:13 11:10:13 Visit Olga Lidia Palacio [facility] 350.1.13.10 ity of [place] 4.2.7.2.686 Archie as GRACIE?BLEA [id number] [address] MEDICAL OFFICE BUILDING 2021-03-21 2021-03-21 (TEL) [facility] [id number] Co mmon 00:00:00 00:00:00 [facility] 2021-03-20 2021-03-20 Emergency X [facility] ERT [id number] Univers 16:03:00 19:39:00 MEKA guillermo [facility] 2021-03-20 2021-03-20 Emergency [facility] 1.2.591.145 [id number] Univers 16:03:00 19:39:00 Meka MARUCM 350.1.13.10 ity of [place] 4.2.7.2.686 [facility] [id number] [address] 2021-02-12 2021-02-12 Emergency X [facility] ERT [id number] Univers 14:09:00 21:08:00 ROSALINDA li [facility] 2021-02-12 2021-02-12 Emergency [facility] 1.2.696.837 [id number] Univers 14:09:00 21:08:00 Rosalinda MARCUM 350.1.13.10 ity of [place] 4.2.7.2.686 [facility] [id number] [address] 2021-01-17 2021-01-18 [facility] 1.2.840.114 [id number] Univers 21:29:00 01:13:00 Maru Marcum 350.1.13.10 ity of [place] 4.2.7.2.686 [facility] [id number] [address] 2021-01-17 2021-01-18 Emergency X [facility] ERT [id number] Univers 21:29:00 01:13:00 MARU li [facility] 2021-01-17 2021-01-17 Orders Doctor JAQUELIN 1.2.840.114 [id number] Univers 00:00:00 00:00:00 Only Unassigned, BIANCA [id number] ity of [place] [facility] 4.2.7.2.686 Archie as [id number] [address] 2021-01-07 2021-01-07 [facility] [id number] Univers 11:38:27 23:59:00 Encounter [facility] [id number] ity of [place] 4.2.7.2.686 Archie as Gracie?Blea [phone] [facility] [address] [facility] 2021-01-07 2021-01-07 Outpatient R [facility] [id number] Univers 11:40:00 11:55:26 [facility] 2021-01-07 2021-01-07 Urgent [facility] 1.2.840.114 [id number] Univers 11:22:24 11:55:26 Care [facility] [id number] ity of [place] 4.2.7.2.686 Archie as Gracie?Blea [phone] [facility] [address] [facility] [address] [facility] 2021-01-07 2021-01-07 Letter JAQUELIN [place] 1.2.840.114 [id number] Univers 00:00:00 00:00:00 (Out) Karlene Hawley BIANCA 350.1.13.10 i ty of [facility] 4.2.7.2.686 Archie as [id number] [facility] [address] 2020-12-30 2020-12-30 Emergency X [facility] ERT [id number] Univers 13:14:00 17:53:00 [facility] li [facility] [facility] 2020-12-30 2020-12-30 Emergency [facility] 1.2.840.114 [id number] Univers 13:14:00 17:53:00 Maru [place] 350.1.13.10 ity [place] [employer] [phone] [facility] 084 [place] 2020-12-30 2020-12-30 [facility] 1.2.840.114 [id number] Univers 10:00:12 10:49:11 Visit Vira Steiner [place] 350.1.13.10 it[place] [phone] N[place] dical nal [address] [place] [address] 2020-12-30 2020-12-30 Outpatient R [facility] [id number] Univers 09:30:00 10:49:11 VIRA ity of [facility] 2020-12-23 2020-12-23 [facility] 1.2.840.114 [id number] Univers 15:59:00 23:59:00 Encounter Vira [place] 350.1.13.10 it[place] of [place].686 [place] [employer] [phone] [facility] 8[address] [place] 2020-12-23 2020-12-23 [facility] 1.2.840.114 [id number] Univers 15:59:00 23:59:00 Encounter Vira [place] 350.1.13.10 [place] [employer] [phone] [facility] 806 [place] 2020-12-23 2020-12-23 Outpatient R AD, [facility] [id number] Univers 00:00:00 00:00:00 VIRA ity of [facility] 2020-12-16 2020-12-16 [facility] 1.2.840.114 [id number] Univers 09:56:42 11:11:19 Visit Vira [place] 350.1.13.10 [place] [phone] Nv dical nal [address] [facility] 2020-12-16 2020-12-16 [facility] 1.2.840.114 [id number] Univers 09:56:42 11:11:19 Visit Vira Obdulia Marcum 350.1.13.10 ity [facility] 4.2.7.2.686 [facility] [phone] N[facility] [address] [facility] [place] [facility] 2020-12-16 2020-12-16 [facility] [id number] Univers 10:00:00 10:00:00 VIRA ity [facility] 2020-12-14 2020-12-14 (TEL) [facility] [id number] Co mmon 00:00:00 00:00:00 [facility] 2020-12-05 2020-12-05 Emergency [facility] 1.2.840.114 [id number] Univers 14:07:00 18:52:00 Eliana Marcum 350.1.13.10 ity [facility] 4.2.7.2.686 [facility] [phone] [address] 2020-12-05 2020-12-05 Emergency X [facility] ERT [id number] Univers 14:07:00 18:52:00 [facility] 2020-11-10 2020-11-10 Outpatient [facility] [id number] Common 00:00:00 00:00:00 [facility] 2020-10-11 2020-10-12 Emergency Mariana Ramirez 1.2.840. 114 [id number] Univers 08:30:00 20:40:00 Kadi Duggan 350.1.13.10 ity of [facility] 4.2.7.2.686 [place] [phone] [place] [address] [place] 2020-10-11 2020-10-12 [facility] [id number] Univers 08:30:00 20:40:00 [facility] 2020-10-11 2020-10-12 Emergency Mariana Ramirez 1.2.840. 114 [id number] 08:30:00 20:40:00 Kadi Duggany 350.1.13.10 [facility] 4.2.7.2.686 [id number] 095 2020-10-04 2020-10-04 Emergency [facility] 1.2.707.512 [id number] [facility] 17:45:00 20:23:00 Maisha Marcum 350.1.13.10 i ty [place] 4.2.7.2.686 [facility] [phone] [place] [address] [place] 2020-10-04 2020-10-[address] [facility] ERT [id number] Univers 17:45:00 20:23:00 MAISHA li [facility] 2020-10-04 2020-10-04 Emergency [facility] 1.2.149.552 [id number] 0623 17:45:00 20:23:00 Maisha Marcum 350.1.13.10 [place] 4.2.7.2.686 [employer] [id number] 084 2020-09-30 2020-09-30 Outpatient STLMLC STLMLC [id number] Common 00:00:00 00:00:00 [facility] 2020-09-29 2020-09-29 Outpatient STLMLC STLMLC [id number] Common 00:00:00 00:00:00 [facility] 2020-09-19 2020-09-19 Outpatient STLMLC STLMLC [id number] Common 00:00:00 00:00:00 [facility] 2020-09-16 2020-09-16 Outpatient STLMLC STLMLC [id number] Common 00:00:00 00:00:00 [facility] 2020-09-02 2020-09-02 Outpatient STLMLC STLMLC [id number] Common 00:00:00 00:00:00 [facility] 2020-08-05 2020-08-05 Emergency [facility] 1.2.840.114 [id number] Univers 08:16:00 09:12:00 Maru Marcum 350.1.13.10 [place] [employer] [phone] [facility] [address] [place] 2020-08-05 2020-08-05 Emergency [facility] E[facility] [id number] Univers 08:16:00 09:12:00 MARU ity of [facility] 2020-08-05 2020-08-05 Emergency [facility] 1.2.840.114 [id number] 08:16:00 09:12:00 Maru Marcum 350.1.13.10 [place] 4.2.7.2.686 [employer] [id number] 084 2020-07-19 2020-07-19 Outpatient Gunnar [facility] [id number] [facility] 11:20:00 11:11:33 SULAIMAN ity [facility] 2020-07-18 2020-07-18 [facility] 1.2.840.114 [id number] [facility] 06:28:00 08:29:00 Encounter Moise Maxine [place] 350.1.13.10 [place].2.[place] [id number] [place] 166431 [place] 2020-07-18 2020-07-18 [facility] 1.2.840.114 [id number] 06:28:00 08:29:00 Encounter Moise S [place] 350.1.13.10 [place] 4.2.7.2.686 Surgical [id number] [place] [address] 2020-07-18 2020-07-18 [facility] 1.2.521.298 [id number] Univers 07:30:00 08:00:00 Moise S [place] 350.1.13.10 [place] [phone] [facility] [address]20 [place] 2020-07-18 2020-07-[address] [facility] 1.2.840.114 [id number] 07:30:00 08:00:00 [place] 350.1.13.10 [place] 4.2.7.2.686 Surgical [id number] [place] [address] 2020-07-15 2020-07-15 Outpatient Gunnar GAMEZ, [facility] [id number] Univers 08:00:00 08:00:00 MOISE ity [facility] 2020-07-11 2020-07-11 Outpatient Gunnar [facility] [id number] Univers 12:00:00 12:00:00 SULAIMAN ity [facility] 2020-07-08 2020-07-08 Outpatient Gunnar [facility] [id number] Univers 10:40:00 10:40:00 SULAIMAN ity [facility] 2020-07-07 2020-07-07 Emergency Jaki Polanco [facility] 1.2.840.114 [id number] Univers 18:47:00 22:05:00 Sydnie Marcum 350.1.13.10 i ty [facility] 4.2.7.2.686 [place] [facility] [phone] [facility] [address] [place] 2020-07-07 2020-07-07 Emergency X Jaki POLANCO [facility] ERT [id number] Univers 18:47:00 22:05:00 ity [facility] 2020-07-07 2020-07-07 Emergency Jaki Polanco [facility] 1.2.840.114 [id number] 18:47:00 22:05:00 Sydnie Marcmu 350.1.13.10 [place] 4.2.7.2.686 [employer] [id number] 084 2020-07-07 2020-07-07 Orders Doctor JAQUELIN 1.2.840.114 [id number] Univers 00:00:00 00:00:00 Only Unassigned, BIANCA 350.1.13.10 ity of [facility] 4.2.7.2.686 Archie [id number] [facility] 009 [place] 2020-07-07 2020-07-07 Outpatient STLMLC STLMLC [id number] Common 00:00:00 00:00:00 [facility] 2020-07-07 2020-07-07 Orders Doctor HAMMER 1.2.840.114 [id number] 00:00:00 00:00:00 Only Unassigned, BIANCA 350.1.13.10 [facility] 4.2.7.2.686 [id number] 009 2020-07-04 2020-07-04 [facility] 1.2.840.114 [id number] Univers 06:30:00 08:44:00 Encounter Moise Marcum 350.1.13.10 [place].2.[place] [phone] [place] 166431 [place] 2020-07-04 2020-07-04 Outpatient [facility] J[facility] [id number] Univers 06:30:00 08:44:00 MOISE ity of [facility] 2020-07-04 2020-07-04 [facility] 1.2.840.114 [id number] 06:30:00 08:44:00 Encounter Moise Mason Chao 350.1.13.10 [place] 4.2.7.2.686 Surgical [phone] [place] [address] 2020-07-04 2020-07-04 Orders Doctor JAQUELIN 1.2.840.114 [id number] Univers 00:00:00 00:00:00 Only Unassigned, BIANCA 350.1.13.10 ity of [facility] 4.2.7.2.686 Archie as [phone] [address] 2020-07-04 2020-07-04 Orders Doctor HAMMER 1.2.840.114 [id number] 00:00:00 00:00:00 Only Unassigned, BIANCA 350.1.13.10 [facility] 4.2.7.2.686 [id number] 009 2020-07-01 2020-07-01 Laboratory Only, Adc Test [place] 1.2.840. 114 [id number] Univers 09:02:10 09:17:10 Only Moise Gamez 350.1.13.1 0 [place] [employer] [id number] [facility] 353 [place] 2020-07-01 2020-07-01 Laboratory Only, Adc [facility] 1.2.840.114 [id number] 09:02:10 09:17:10 Only Test [place] 350.1.13.10 [place] 4.2.7.2.686 [employer] [id number] 353 2020-07-01 2020-07-01 Outpatient Gunnar KEIRA [facility] [id number] Univers 08:30:00 08:30:00 MOISE ity [facility] 2020-07-01 2020-07-01 Orders Doctor HAMMER 1.2.840.114 [id number] Univers 00:00:00 00:00:00 Only Unassigned, BIANCA 350.1.13.10 ity of [place] [facility] 4.2.7.2.686 Archie as [id number] [address] 2020-07-01 2020-07-01 Orders Doctor HAMMER 1.2.840.114 [id number] 00:00:00 00:00:00 Only Unassigned, BIANCA [facility].1.13.10 [facility] 4.2.7.2.686 [id number] [facility] 2020-06-30 2020-06-30 Outpatient STLMLC STLMLC [id number] Common 00:00:00 00:00:00 [facility] 2020-06-22 2020-06-22 Outpatient STLC STLC [id number] Common 00:00:00 00:00:00 [facility] 2020-06-20 2020-06-20 [facility] 1.2.840.114 [id number] Univers 06:29:00 08:58:00 Encounter Moise Mason [place] 350.1.13.10 ity [facility] 4.2.7.2.686 [place] [phone] [place] [address] [place] 2020-06-20 2020-06-20 Outpatient [facility] JARROD [id number] Univers 06:29:00 08:58:00 MOISE ity [facility] 2020-06-20 2020-06-20 [facility] 1.2.840.114 [id number] 06:29:00 08:58:00 Encounter Moise Mason [place] 350.1.13.10 [place] 4.2.7.2.686 Surgical [id number] [place] 071 2020-06-20 2020-06-20 Anesthesia Abe Arana [facility] 1.2.840.11 [id number] [facility] 08:03:00 08:12:00 Event Dominguez Seo 350.1.13.10 it[place]2.[place].2.[place] [id number] [facility] [address]20 [place] 2020-06-20 2020-06-20 Anesthesia Abe Arana [facility] 1.2.840.11 4 [id number] 08:03:00 08:12:00 Event Dominguez Seo 350.1.13.10 [place] 4.2.7.2.686 Surgical [id number] [place] 020 2020-06-20 2020-06-20 Orders Doctor HAMMER 1.2.840.114 [id number] [facility] 00:00:00 00:00:00 Only Unassigned, BIANCA 350.1.13.10 ity of [place] [facility] 4.2.7.2.686 Archie as [id number] [address] 2020-06-20 2020-06-20 Orders Doctor JAQUELIN 1.2.840.114 [id number] 00:00:00 00:00:00 Only Unassigned, BIANCA 350.1.13.10 [facility] 4.2.7.2.686 [id number] [facility] 2020-06-19 2020-06-19 Outpatient [facility] [id number] [facility] 08:15:00 08:15:00 ity of [facility] 2020-06-17 2020-06-17 Fish Pitcher Marcie Johnson Lab Main [facility] 1.2.8 40.114 [id number] [facility] 15:27:53 15:42:53 Visit KeiraMoise hawley Chao 350.1.13.1 0 it[place] 4.2.[place].2.[place] [phone] Nv dical [address] 2020-06-17 2020-06-17 Fish Pitcher Pob, [facility] 1.2.840.114 [id number] 15:27:53 15:42:53 Visit Lab Main Chao 350.1.13.10 [place] 4.2.7.2.686 [facility] [id number] [address] 2020-06-17 2020-06-17 Laboratory Only, [facility] Test [facility] 1.2.840. 114 [id number] Univers 15:26:19 15:41:19 Only Moise Gamez S Chao 350.1.13.1 0 ity of [place] 4.[place].2.[place] [employer] [id number] [facility] [address] 2020-06-17 2020-06-17 Laboratory Only, [facility] 1.2.840.114 [id number] 15:26:19 15:41:19 Only Test Chao 350.1.13.10 [place] 4.2.7.2.686 [employer] [id number] [facility] 2020-06-17 2020-06-17 Outpatient Gunnar GAMEZ [facility] [id number] Univers 12:30:00 12:30:00 MOISE [facility] 2020-06-17 2020-06-17 Orders Doctor JAQUELIN 1.2.840.114 [id number] Univers 00:00:00 00:00:00 Only Unassigned, BIANCA 350.1.13.10 ity of [place] [facility] 4.2.7.2.686 Archie as [id number] [facility] [address] [place] 2020-06-17 2020-06-17 Orders Doctor HAMMER 1.2.840.114 [id number] 00:00:00 00:00:00 Only Unassigned, BIANCA 350.1.13.10 [facility] 4.2.7.2.686 [id number] 009 2020-05-22 2020-05-22 Outpatient Gunnar MARSH [facility] [id number] Univers 08:50:00 08:50:00 SULAIMAN [facility] 2020-05-06 2020-05-06 Emergency [facility] 1.2.840.114 [id number] Univers 15:21:00 18:38:00 Kirstin Marcum 350.1.13.10 i ty of [place] 4.2.7.2.686 [place] [employer] [id number] [facility] 084 [place] 2020-05-06 2020-05-06 Emergency [facility] 1.2.840.114 [id number] 15:21:00 18:38:00 Kirstin Marcum 350.1.13.10 [place] 4.2.7.2.686 [employer] [id number] [facility] 2020-05-04 2020-05-04 Outpatient R [facility] [id number] Univers 09:20:00 09:20:00 ity [facility] 2020-05-04 2020-05-04 Laboratory Lab, [facility] Fam Pob I [facility] 1.2. 840.114 [id number] [facility] 08:54:13 09:14:13 Only Anene, [facility] 350.1.13.10 ity [facility] 4.2.7.2.686 Archie as Professio [phone] Nv dical [address] Office Building [facility] 2020-05-04 2020-05-04 Laboratory Lab, [facility] 1.2.840.114 81 [id number] 08:54:13 09:14:13 Only Fam Pob I Health 350.1.13.10 [place] 4.2.7.2.686 Professio [id number] [place] [address] Office Building [facility] 2020-04-14 2020-04-14 Letter Jeannie Slade 1.2.840.114 80 [id number] Univers 00:00:00 00:00:00 (Out) BIANCA 350.1.13.[address] [facility] 4.2.7.2.686 Archie as [phone] [facility] 043 [place] 2020-04-14 2020-04-14 Letter Jeannie Slade 1.2.840.114 80 [id number] 00:00:00 00:00:00 (Out) BIANCA 350.1.13.10 [facility] 4.2.7.[id number] [facility] 2020-03-25 2020-03-26 Emergency [facility] 1.2.686.131 [id number] Univers 21:13:00 02:01:00 Gabriele Marcum 350.1.13.10 ity of [place] 4.2.7.2.686 [facility] [id number] [facility] [address] [place] 2020-03-25 2020-03-26 Emergency [facility] 1.2.372.054 [id number] 21:13:00 02:01:00 Gabriele Marcum 350.1.13.10 [place] 4.2.7.2.686 [employer] [id number] 08 2020-03-18 2020-03-18 Orders Doctor JAQUELIN 1.2.840.114 [id number] Univers 00:00:00 00:00:00 Only Unassigned, BIANCA 350.1.13.10 ity of [place] [facility] 4.2.7.2.686 [facility] [id number] [facility] 009 [place] 2020-03-18 2020-03-18 Orders Doctor JAQUELIN 1.2.840.114 [id number] 00:00:00 00:00:00 Only Unassigned, BIANCA 350.1.13.10 [place] [facility] 4.2.7.2.686 [id number] 009 2020-03-08 2020-03-08 Outpatient [facility] [id number] Common 00:00:00 00:00:00 [facility] 2020-03-07 2020-03-07 Outpatient [facility] [id number] Common 00:00:00 00:00:00 [facility] 2020-01-31 2020-02-08 [facility] 1.2.840.1 14 [id number] [facility] 10:39:00 16:12:00 Encounter Ron, K[facility] Health 350.1.13.10 ity of [place] 4.2.7.2.686 [place] Katheryn Retana [phone] Nv ind[facility] [address] ([facility]) 2020-01-31 2020-02-08 [facility] 1.2.840.1 14 [id number] 10:39:00 16:12:00 Encounter Ron, [facility] 350.1.13.10 [place] 4.2.7.2.686 Katheryn Retana [phone] [facility] 110 ([facility]) 2020-01-11 2020-01-11 Outpatient STLMLC STLMLC [id number] Common 00:00:00 00:00:00 [facility] 2020-01-06 2020-01-06 Outpatient STLMLC STLMLC [id number] Common 00:00:00 00:00:00 [facility] 2019-12-18 2019-12-18 Emergency [facility] 1.2.009.212 [id number] Univers 15:26:00 19:16:00 Meka Marcum 350.1.13.10 ity [facility] 4.2.7.2.686 [facility] [phone] [address] 2019-12-18 2019-12-18 Emergency [facility] 1.2.172.727 [id number] 15:26:00 19:16:00 Meka Marcum 350.1.13.10 [place] 4.2.7.2.686 [employer] [id number] [facility] 2019-11-05 2019-11-05 (TEL) STLC [facility] [id number] Co mmon 00:00:00 00:00:00 [facility] 2019-10-06 2019-10-06 Outpatient [facility] [id number] Common 10:40:00 10:40:[address] [facility] 2019-09-17 2019-09-17 Outpatient [facility] [id number] Common 10:24:00 10:24:00 t Perceptive Pixel Spir it Drive [facility] 2019-08-21 2019-08-21 Emergency X COUNTS INCLUDE 234 [facility] AT [facility] ERT [id number] Univers 19:42:19 23:51:00 GABRIELE li [facility] 2019-08-21 2019-08-21 Emergency [facility] 1.2.015.014 [id number] Univers 19:42:19 23:51:00 Gabriele Marcum 350.1.13.10 ity of [place] 4.2.7.2.686 [facility] [id number] [place] [address] [place] 2019-08-21 2019-08-21 Emergency [facility], [facility] 1.2.623.908 [id number] 19:42:19 23:51:00 Gabriele Marcum 350.1.13.10 [place] 4.2.7.2.686 [employer] [id number] 2019-07-14 2019-07-14 Outpatient [facility] [id number] Common 15:00:00 15:00:00 Echograph Spir Return Path [facility] 2019-06-25 2019-06-25 Emergency [facility] 1.2.840.114 [id number] [facility] 16:52:11 20:04:00 Kirstin Chao 350.1.13.10 i ty of [place] 4.2.7.2.[address] [place] [address] [phone] [place] [address] [place] 2019-06-25 2019-06-25 Emergency [facility], [facility] 1.2.840.114 [id number] 16:52:11 20:04:00 Kirstin Marcum 350.1.13.[address] [place] [address] [place] [address] [id number] [facility] 2019-06-19 2019-06-19 Emergency [facility] 1.2.265.688 [id number] 2000 [facility] 13:58:11 19:09:00 BraidwoodWon Marcum 350.1.13.10 ity of [place] 4.2.7.2.[address] [place] [address] [id number] [place] [address] [place] 2019-06-19 2019-06-19 Emergency [facility] 1.2.374.752 [id number] 2000 13:58:11 19:09:00 BraidwoodWon Marcum 350.1.13.[address] [place] [address] [place] [address] [id number] [facility] 2019-06-19 2019-06-19 Orders Doctor HAMMER 1.2.840.114 [id number] Univers 00:00:00 00:00:00 Only Unassigned, BIANCA 350.1.13.10 ity of [place] [facility] 4.2.7.2.686 Archie as [id number] [facility] [address] [place] 2019-06-19 2019-06-19 Orders Doctor JAQUELIN 1.2.840.114 [id number] 00:00:00 00:00:00 Only Unassigned, BIANCA 350.1.13.10 [place] [facility] 4.2.7.2.686 [id number] 009 2019-05-19 2019-05-19 Emergency X , [facility] ERT [id number] Univers 18:29:04 21:26:00 JADYN li of [facility] 2019-05-19 2019-05-[address] [facility] 1.2.162.246 [id number] Univers 18:29:04 21:26:00 Jadyn [place] 350.1.13.10 i ty of [place] 4[place]2.7.2.[place] [employer] [id number] [facility] [address] [place] [address] 2019-05-19 2019-05-[address] [facility] 1.2.070.581 [id number] 6612 18:29:04 21:26:00 Jadyn Marcum 350.1.13.10 [place] 4.2.7.2.686 [employer] [phone] 4 2019-03-02 2019-03-02 Outpatient [facility] [id number] Common 10:40:00 10:40:[address] Spir it [address] [facility] 2019-02-04 2019-02-04 Outpatient [facility] Juliot [id number] Common 10:55:00 10:55:[address] Pixel Spir it Drive [facility] 2018-12-24 2018-12-24 Telephone [facility] 1.2.840.114 [id number] Univers 00:00:00 00:00:00 Milagros [employer] [facility] 350.1.13.10 it y of Surgical 4.2.7.2.686 Archie as Specialti [phone] Nv dical 198 [facility] 2018-12-24 2018-12-24 Telephone [facility] 1.2.840.114 [id number] 00:00:00 00:00:00 Milagros Chen 350.1.13.10 Surgical 4.2.7.2.686 Specialti [phone] es 198 [place] 2018-12-18 2018-12-18 [facility] 1.2.840.114 [id number] [facility] 08:54:57 23:59:00 Encounter Milagros Chen 350.1.13.10 ity of Surgical 4.2.7.2.686 Archie as Specialti [phone] Me dical es 809 [facility] 2018-12-18 2018-12-[address] [facility] 1.2.639.945 [id number] Univers 08:37:16 09:02:40 Visit Milagros Chen 350.1.13.10 it y of Surgical 4.2.7.2.686 Archie as Specialti [id number] Nv dical es 198 [facility] 2018-12-08 2018-12-[address] [facility] 1.2.638.839 [id number] [id number] Univers 15:02:42 15:51:02 Visit Milagros Chen 350.1.13.10 it y of Surgical 4.2.7.2.686 Archie as Specialti [phone] Nv dical es 198 [facility] 2018-12-05 2018-12-05 [facility] 1.2.840.114 [id number] [facility] 09:47:09 23:59:00 Encounter Ector Maxine Marcum 350.1.13.10 ity of [place] 4.2.7.2.686 [place] [employer] [phone] [address] 2018-12-05 2018-12-[address] [facility] [id number] [facility] 07:55:02 09:26:33 Visit Milagros Chen 350.1.13.10 it y of Surgical 4.2.7.2.686 [place] as Specialti [phone] Nv dical es 198 [facility] 2018-12-01 2018-12-01 Emergency Jaki Polanco [facility] [id number] Univers 14:24:08 18:38:00 Sydnie Chao 350.1.13.10 i ty [place] 4.2.7.2.686 [facility] [id number] [facility] [address] 2018-11-18 2018-11-18 Transition Nhan Smith [id number] Univers 00:00:00 00:00:00 of Care Pricilla Wills 350.1.13.10 it y of [place] 4.2.7.2.686 [facility] [phone] [facility] [address] 2018-11-15 2018-11-17 Emergency Mariana Ramirez 1.2.840. [id number] Univers 09:29:33 16:00:00 KaileecharlaSundar Bianca 350.1.13.10 ity of [facility] 4.2.7.2.686 [place] [phone] [facility] [address] 2018-10-07 2018-10-07 [facility] [id number] Common 11:00:00 11:00:[address] [place] [address] [facility] 2018-07-28 2018-07-28 [facility] [id number] Common 09:57:00 09:57:[address] [facility] 2018-07-25 2018-07-25 [facility] [id number] Common 14:40:00 14:40:[address] [facility] Results Test Description Test Time Test Comments Results Result Comments Source CBC with Differential 2022-07-31 13:54:50 Test Item Value Reference Range Interpretation Comme nts WBC (test code = 6690-2) 3.14 See_Comment L [A utomated message] The system which ge nerated this result transmit gulshan reference range: 4.30 - 1 1.10 10*3/?L. The reference r luca was not used to interpr et this result as normal/abnor mal. RBC (test code = 789-8) 2.77 See_Comment L [Au tomated message] The system which ge nerated this result transmit gulshan reference range: 3.93 - 5 .25 10*6/?L. The reference r luca was not used to interpr et this result as normal/abnor mal. HGB (test code = 718-7) 8.3 g/dL 11.6-15.0 L HCT (test code = 4544-3) 25.3 % 35.7-45.2 L MCV (test code = 787-2) 91.3 fL 80.6-95.5 MCH (test code = 785-6) 30.0 pg 25.9-32.8 MCHC (test code = 786-4) 32.8 g/dL 31.6-35.1 RDW-SD (test code = 16684-4) 48.9 fL 39.0-49.9 RDW-CV (test code = 788-0) 14.6 % 12.0-15.5 PLT (test code = 777-3) 179 See_Comment [Au tomated message] The system which ge nerated this result transmit gulshan reference range: 166 - 35 8 10*3/?L. The reference range was not used to interpret th is result as normal/abnormal . MPV (test code = 42930-0) 10.9 fL 9.5-12.9 NRBC/100 WBC (test code = 0.0 See_Comment [ Automated message] The 7467502441) system which ge nerated this result transmit gulshan reference range: 0.0 - 10 .0 /100 WBCs. The reference r luca was not used to interpr et this result as normal/abnor mal. NRBC x10^3 (test code = See_Comment [Au tomated message] The 9289698326) system which [employer] nerated this result transmit gulshan reference range: 10*3/?L. The reference range was not u sed to interpret this result as normal/abnormal . GRAN MAT (NEUT) % (test code 56.0 % = 770-8) IMM GRAN % (test code = 1.00 % 2044701421) LYMPH % (test code = 736-9) 34.1 % MONO % (test code = 5905-5) 7.3 % EOS % (test code = 713-8) 1.3 % BASO % (test code = 706-2) 0.3 % GRAN MAT x10^3(ANC) (test 1.76 10*3/uL 1.88-7.09 L code = 1995124812) IMM GRAN x10^3 (test code = 0.03 10*3/uL 0.00-0.06 1488170337) LYMPH x10^3 (test code = 1.07 10*3/uL 1.32-3.29 L 731-0) MONO x10^3 (test code = 0.23 10*3/uL 0.33-0.92 L 742-7) EOS x10^3 (test code = 0.04 10*3/uL 0.03-0.39 711-2) BASO x10^3 (test code = 0.01-0.07 704-7) GIANT PLATELETS (test code = Present See_Comment A [Automated message] The [employer] system which ge nerated this result transmit gulshan reference range: (none). The reference range was not u sed to interpret this result as normal/abnormal . Lab Interpretation (test Abnormal code = 64271-9) [facility] Metabolic Panel (NA, K, CL, CO2, GLUCOSE, BUN, CREATININE, CA)2022-07-31 11:30:44 Test Item Value Reference Range Interpretation Comments NA (test code = 136 mmol/L 135-145 8696957026) K (test code = 3.7 mmol/L 3.5-5.0 5378631798) CL (test code = 109 mmol/L 98-108 H 8278426294) CO2 TOTAL (test code = 21 mmol/L 23-31 L 0156174761) AGAP (test code = 6 2-16 9954235434) BUN (test code = 11 mg/dL 7-23 6651199020) GLUCOSE (test code = 81 mg/dL 70-110 1579070085) CREATININE (test code = 0.45 mg/dL 0.50-1.04 L 2867741767) CALCIUM (test code = 8.6 mg/dL 8.6-10.6 1643755876) eGFR (test code = 142.6 mL/min/1.73m2 5065192294) KIM (test code = KIM) Association of [...] tests). Lab Interpretation Abnormal (test code = 89539-3) [facility] 11:[facility]23 Test Item Value Reference Range Interpretation Comments LIPASE (test code = 2424503579) 307 U/L 0-220 H Lab Interpretation (test code = Abnormal 21223-2) [facility] (71627)2022-07-30 23:56:34 Test Item Value Reference Range Interpretation Comments NA (test code = 138 mmol/L 135-145 9673024910) K (test code = 3.9 mmol/L 3.5-5.0 4857403056) CL (test code = 106 mmol/L 98-108 5929098712) CO2 TOTAL (test code = 21 mmol/L 23-31 L 4174766593) AGAP (test code = 11 2-16 2431678418) BUN (test code = 12 mg/dL 7-23 3454183024) GLUCOSE (test code = 86 mg/dL 70-110 1634849254) CREATININE (test code = 0.46 mg/dL 0.50-1.04 L 3562016231) TOTAL BILI (test code = 2.7 mg/dL 0.1-1.1 H 9035431797) CALCIUM (test code = 9.0 mg/dL 8.6-10.6 1355477330) T PROTEIN (test code = 7.2 g/dL 6.3-8.2 3615056238) ALBUMIN (test code = 4.1 g/dL 3.5-5.0 6248078923) ALK PHOS (test code = 841 U/L 34-122 H 9956762389) ALTv (test code = 154 U/L 5-35 H 1742-6) AST(SGOT) (test code = 159 U/L 13-40 H 3718094702) eGFR (test code = 139.0 mL/min/1.73m2 3783843055) KIM (test code = KIM) Association of [...] tests). Lab Interpretation Abnormal (test code = 16497-5) [facility] 23:56:14 Test Item Value Reference Range Interpretation Comments LIPASE (test code = 8565327923) 70 U/L 0-220 Lab Interpretation (test code = Normal 50311-3) [facility] THRM[facility]AS [id number] 23:54:13 Test Item Value Reference Range Interpretation Comments APTT Patient (test 26 See_Comment [Automat ed code = 3173-2) message] [...] seconds. Lab Interpretation Normal (test code = 51926-2) [facility] / [id number] 23:52:12 Test Item Value Reference Range Interpretation Comments PROTIME PATIENT (test 12.0 See_Comment [Auto mated message] code = 5964-2) The system wh ich generated this result transmitted ref erence range: 12.0 - 1 4.7 Seconds. The re ference range was not u sed to interpret this result as normal/abnor mal. INR (test code = 6301-6) 0.9 Nor mal INR <1.1; Warfarin Therap eutic range 2.0 to 3. 0 or 2.5 to 3.5, dep ending upon the indica tions. Lab Interpretation (test Normal code = 22888-0) [facility] WITH [id number] 23:44:51 Test Item Value Reference Range Interpretation Comments WBC (test code = 4.50 See_Comment [Automated 7201-2) message] The sy stem which generated this result transmitted reference range : 4.30 - 11.10 10*3/?L. The reference range was not used to interpret this result as normal/abnormal . RBC (test code = 3.16 See_Comment L [Automated 108-8) message] The sy stem which generated this result transmitted reference range : 3.93 - 5.25 10*6/?L. The reference range was not used to interpret this result as normal/abnormal . HGB (test code = 9.5 g/dL 11.6-15.0 L 718-7) HCT (test code = 28.6 % 35.7-45.2 L 4544-3) MCV (test code = 90.5 fL 80.6-95.5 787-2) MCH (test code = 30.1 pg 25.9-32.8 785-6) MCHC (test code = 33.2 g/dL 31.6-35.1 786-4) RDW-SD (test code = 48.9 fL 39.0-49.9 23739-2) RDW-CV (test code = 14.6 % 12.0-15.5 788-0) PLT (test code = 200 See_Comment [Automated 777-3) message] The sy stem which generated this result transmitted reference range : 166 - 358 10*3/ ?L. The reference r luca was not used to interpret this result as normal/abnormal . MPV (test code = 10.4 fL 9.5-12.9 83702-5) NRBC/100 WBC (test 0.0 See_Comment [Automat ed code = 8397631067) message] The system which generated this result transmitted reference range : 0.0 - 10.0 /100 WBCs. The refer ence range was not u sed to interpret th is result as normal/abnormal . NRBC x10^3 (test code See_Comment [Auto mated = 0053142754) message] The s ystem which generated this result transmitted reference range : 10*3/?L. The reference range was not used to interpret this result as normal/abnormal . GRAN MAT (NEUT) % 73.4 % (test code = 770-8) IMM GRAN % (test code 0.20 % = 4276718229) LYMPH % (test code = 18.9 % 736-9) MONO % (test code = 6.4 % 5905-5) EOS % (test code = 0.4 % 713-8) BASO % (test code = 0.7 % 706-2) GRAN MAT x10^3(ANC) 3.30 10*3/uL 1.88-7.09 (test code = 2304971125) IMM GRAN x10^3 (test 0.00-0.06 code = 2553184793) LYMPH x10^3 (test code 0.85 10*3/uL 1.32-3.29 L = 731-0) MONO x10^3 (test code 0.29 10*3/uL 0.33-0.92 L = 742-7) EOS x10^3 (test code = 0.03-0.39 L 711-2) BASO x10^3 (test code 0.03 10*3/uL 0.01-0.07 = 704-7) Lab Interpretation Abnormal (test code = 33884-0) [facility]OS[facility] HEMOGLOBIN (A1C)2022-04-26 11:07:42 Test Item Value Reference Range Interpretation Comments HGB A1C (test code = 4.5 % 4.0-5.7 4548-4) KIM (test code = KIM) Reference RangesNormal: <5.7%Prediabetes: 5.7 - 6.4%Diabetes: > 6.5% Lab Interpretation (test Normal code = 48192-6) [facility]YCOSYL[facility] HEM[facility]GLOBIN (A1C)2022-04-26 11:07:42 Test Item Value Reference Range Interpretation Comments HGB A1C (test code = 4.5 % 4.0-5.7 4548-4) KIM (test code = KIM) Reference RangesNormal: <5.7%Prediabetes: 5.7 - 6.4%Diabetes: > 6.5% Lab Interpretation (test Normal code = 12680-1) [facility]OL[facility] (52260)2022-04-26 00:04:36 Test Item Value Reference Range Interpretation Comments NA (test code = 139 mmol/L 135-145 0855562212) K (test code = 4.3 mmol/L 3.5-5.0 0096181122) CL (test code = 105 mmol/L 98-108 2808478317) CO2 TOTAL (test code = 22 mmol/L 23-31 L 1531679487) AGAP (test code = 2-16 6346211779) BUN (test code = 22 mg/dL 7-23 8273178338) GLUCOSE (test code = 94 mg/dL 70-110 4244005756) CREATININE (test code = 0.86 mg/dL 0.50-1.04 5749673483) TOTAL BILI (test code = 2.1 mg/dL 0.1-1.1 H 7900181898) CALCIUM (test code = 9.0 mg/dL 8.6-10.6 9676820686) T PROTEIN (test code = 8.1 g/dL 6.3-8.2 8564980132) ALBUMIN (test code = 4.4 g/dL 3.5-5.0 4628961720) ALK PHOS (test code = 1234 U/L 34-122 H 3531308399) ALTv (test code = 166 U/L 5-35 H 1742-6) AST(SGOT) (test code = 182 U/L 13-40 H 8538632530) eGFR (test code = mL/min/1.73m2 9924663348) KIM (test code = KIM) Association of [...] tests). Lab Interpretation Abnormal (test code = 31534-7) [facility]20[facility] 00:04:36 Test Item Value Reference Range Interpretation Comments LIPASE (test code = 0510079405) 137 U/L 0-220 Lab Interpretation (test code = Normal 45454-9) [facility] (28001)2022-04-26 00:04:36 Test Item Value Reference Range Interpretation Comments NA (test code = 139 mmol/L 135-145 1210968747) K (test code = 4.3 mmol/L 3.5-5.0 8605616545) CL (test code = 105 mmol/L 98-108 9827683429) CO2 TOTAL (test code = 22 mmol/L 23-31 L 3964174478) AGAP (test code = 2-16 4471534166) BUN (test code = 22 mg/dL 7-23 3213132495) GLUCOSE (test code = 94 mg/dL 70-110 5617862085) CREATININE (test code = 0.86 mg/dL 0.50-1.04 3578803814) TOTAL BILI (test code = 2.1 mg/dL 0.1-1.1 H 1119234982) CALCIUM (test code = 9.0 mg/dL 8.6-10.6 8027899986) T PROTEIN (test code = 8.1 g/dL 6.3-8.2 7011008990) ALBUMIN (test code = 4.4 g/dL 3.5-5.0 2981368285) ALK PHOS (test code = 1234 U/L 34-122 H 6173949621) ALTv (test code = 166 U/L 5-35 H 1742-6) AST(SGOT) (test code = 182 U/L 13-40 H 7814704191) eGFR (test code = mL/min/1.73m2 5629026599) KIM (test code = KIM) Association of [...] tests). Lab Interpretation Abnormal (test code = 79275-9) [facility] 00:04:36 Test Item Value Reference Range Interpretation Comments LIPASE (test code = 3234196469) 137 U/L 0-220 Lab Interpretation (test code = Normal 66991-0) [facility] WITH [id number] 23:46:13 Test Item Value Reference Range Interpretation Comments WBC (test code = See_Comment [Automated 5590-2) message] The sy stem which generated this result transmitted reference range : 4.30 - 11.10 10*3/?L. The reference range was not used to interpret this result as normal/abnormal . RBC (test code = See_Comment L [Automated 859-8) message] The sy stem which generated this result transmitted reference range : 3.93 - 5.25 10*6/?L. The reference range was not used to interpret this result as normal/abnormal . HGB (test code = 9.8 g/dL 11.6-15.0 L 718-7) HCT (test code = 30.1 % 35.7-45.2 L 4544-3) MCV (test code = 92.6 fL 80.6-95.5 787-2) MCH (test code = 30.2 pg 25.9-32.8 785-6) MCHC (test code = 32.6 g/dL 31.6-35.1 786-4) RDW-SD (test code = 48.8 fL 39.0-49.9 09657-3) RDW-CV (test code = 14.4 % 12.0-15.5 788-0) PLT (test code = See_Comment [Automated 777-3) message] The sy stem which generated this result transmitted reference range : 166 - 358 10*3/ ?L. The reference r luca was not used to interpret this result as normal/abnormal . MPV (test code = 10.1 fL 9.5-12.9 45303-7) NRBC/100 WBC (test See_Comment [Automat ed code = 6628162285) message] The system which generated this result transmitted reference range : 0.0 - 10.0 /100 WBCs. The refer ence range was not u sed to interpret th is result as normal/abnormal . NRBC x10^3 (test code See_Comment [Auto mated = 3545091577) message] The s ystem which generated this result transmitted reference range : 10*3/?L. The reference range was not used to interpret this result as normal/abnormal . GRAN MAT (NEUT) % 70.1 % (test code = 770-8) IMM GRAN % (test code 0.20 % = 6594702242) LYMPH % (test code = 20.2 % 736-9) MONO % (test code = 8.0 % 5905-5) EOS % (test code = 1.1 % 713-8) BASO % (test code = 0.4 % 706-2) GRAN MAT x10^3(ANC) 3.22 10*3/uL 1.88-7.09 (test code = 7274097123) IMM GRAN x10^3 (test 0.00-0.06 code = 4962934295) LYMPH x10^3 (test code 0.93 10*3/uL 1.32-3.29 L = 731-0) MONO x10^3 (test code 0.37 10*3/uL 0.33-0.92 = 742-7) EOS x10^3 (test code = 0.05 10*3/uL 0.03-0.39 711-2) BASO x10^3 (test code 0.01-0.07 = 704-7) Lab Interpretation Abnormal (test code = 70982-1) [facility] WITH [id number] 23:46:13 Test Item Value Reference Range Interpretation Comments [...] . HGB (test code = 9.8 g/dL 11.6-15.0 L 718-7) HCT (test code = 30.1 % 35.7-45.2 L 4544-3) MCV (test code = 92.6 fL 80.6-95.5 787-2) MCH (test code = 30.2 pg 25.9-32.8 785-6) MCHC (test code = 32.6 g/dL 31.6-35.1 786-4) RDW-SD (test code = 48.8 fL 39.0-49.9 80816-3) RDW-CV (test code = 14.4 % 12.0-15.5 788-0) PLT (test code = See_Comment [Automated 777-3) message] The sy stem which generated this result transmitted reference range : 166 - 358 10*3/ ?L. The reference r luca was not used to interpret this result as normal/abnormal . MPV (test code = 10.1 fL 9.5-12.9 44966-1) NRBC/100 WBC (test See_Comment [Automat ed code = 9440351371) message] The system which generated this result transmitted reference range : 0.0 - 10.0 /100 WBCs. The refer ence range was not u sed to interpret th is result as normal/abnormal . NRBC x10^3 (test code See_Comment [Auto mated = 6872898956) message] The s ystem which generated this result transmitted reference range : 10*3/?L. The reference range was not used to interpret this result as normal/abnormal . GRAN MAT (NEUT) % 70.1 % (test code = 770-8) IMM GRAN % (test code 0.20 % = 1740196612) LYMPH % (test code = 20.2 % 736-9) MONO % (test code = 8.0 % 5905-5) EOS % (test code = 1.1 % 713-8) BASO % (test code = 0.4 % 706-2) GRAN MAT x10^3(ANC) 3.22 10*3/uL 1.88-7.09 (test code = 7732942394) IMM GRAN x10^3 (test 0.00-0.06 code = 0349651222) LYMPH x10^3 (test code 0.93 10*3/uL 1.32-3.29 L = 731-0) MONO x10^3 (test code 0.37 10*3/uL 0.33-0.92 = 742-7) EOS x10^3 (test code = 0.05 10*3/uL 0.03-0.39 711-2) BASO x10^3 (test code 0.01-0.07 = 704-7) Lab Interpretation Abnormal (test code = 96432-7) [facility] METABOLIC PANEL (NA, K, CL, CO2, GLUCOSE, BUN, CREATININE, CA)2022-02-06 10:05:29 Test Item Value Reference Range Interpretation Comments NA (test code = 137 mmol/L 135-145 6850949762) K (test code = 3.0 mmol/L 3.5-5 L 8584066184) CL (test code = 107 mmol/L 98-108 7420216356) CO2 TOTAL (test code = 23 mmol/L 23-31 7507300294) AGAP (test code = 2-16 9532478823) BUN (test code = 4 mg/dL 7-23 L 1221772557) GLUCOSE (test code = 108 mg/dL 70-110 9315415442) CREATININE (test code = 0.40 mg/dL 0.5-1.04 L 3984012183) CALCIUM (test code = 8.1 mg/dL 8.6-10.6 L 4106288026) eGFR (test code = mL/min/1.73m2 0381352830) KIM (test code = KIM) Association of [...] tests). Lab Interpretation Abnormal (test code = 62723-3) [facility] WITH [id number] 09:44:25 Test Item Value Reference Range Interpretation Comments WBC (test code = See_Comment L [Automated 4890-2) message] The sy stem which generated this result transmitted reference range : 4.30 - 11.10 10*3/?L. The reference range was not used to interpret this result as normal/abnormal . RBC (test code = See_Comment L [Automated 629-8) message] The sy stem which generated this result transmitted reference range : 3.93 - 5.25 10*6/?L. The reference range was not used to interpret this result as normal/abnormal . HGB (test code = 8.0 g/dL 11.6-15 L 718-7) HCT (test code = 24.1 % 35.7-45.2 L 4544-3) MCV (test code = 94.9 fL 80.6-95.5 787-2) MCH (test code = 31.5 pg 25.9-32.8 785-6) MCHC (test code = 33.2 g/dL 31.6-35.1 786-4) RDW-SD (test code = 52.6 fL 39-49.9 H 80503-5) RDW-CV (test code = 15.3 % 12-15.5 788-0) PLT (test code = See_Comment [Automated 777-3) message] The sy stem which generated this result transmitted reference range : 166 - 358 10*3/ ?L. The reference r luca was not used to interpret this result as normal/abnormal . MPV (test code = 9.4 fL 9.5-12.9 L 90086-6) NRBC/100 WBC (test See_Comment [Automat ed code = 6144002326) message] The system which generated this result transmitted reference range : 0.0 - 10.0 /100 WBCs. The refer ence range was not u sed to interpret th is result as normal/abnormal . NRBC x10^3 (test code See_Comment [Auto mated = 4120216251) message] The s ystem which generated this result transmitted reference range : 10*3/?L. The reference range was not used to interpret this result as normal/abnormal . GRAN MAT (NEUT) % 70.4 % (test code = 770-8) IMM GRAN % (test code 0.50 % = 8632381089) LYMPH % (test code = 17.2 % 736-9) MONO % (test code = 10.3 % 5905-5) EOS % (test code = 1.3 % 713-8) BASO % (test code = 0.3 % 706-2) GRAN MAT x10^3(ANC) 2.67 10*3/uL 1.88-7.09 (test code = 9018441688) IMM GRAN x10^3 (test 0-0.06 code = 8944352205) LYMPH x10^3 (test code 0.65 10*3/uL 1.32-3.29 L = 731-0) MONO x10^3 (test code 0.39 10*3/uL 0.33-0.92 = 742-7) EOS x10^3 (test code = 0.05 10*3/uL 0.03-0.39 711-2) BASO x10^3 (test code 0.01-0.07 = 704-7) Lab Interpretation Abnormal (test code = 43082-1) [facility] (36908)(TOTAL CHOLESTEROL, TRIGLYCERIDES, HDL)2022-02-04 02:32:52 Test Item Value Reference Range Interpretation Comments CHOL (test code = 344 mg/dL 120-200 H 7598438875) HDL (test code = 85 mg/dL See_Comment [Automated message] 9192474924) The system [employer] generated this result transmit gulshan reference range : >=50. The refer ence range was not u sed to interpret th is result as normal/abnormal . HDLC RATIO (test code = See_Comment [Au tomated message] 2963869652) The system [employer] generated this result transmit gulshan reference range : <=4.5. The refe rence range was not u sed to interpret th is result as normal/abnormal . TRIG (test code = 144 mg/dL 30-170 7794998995) LDL CHOL (test code = 230 mg/dL See_Comment H [Auto mated message] 24837-0) The system [employer] generated this result transmit gulshan reference range : <=160. The refe rence range was not u sed to interpret th is result as normal/abnormal . VLDL (test code = 29 mg/dL 5-60 7860634323) Lab Interpretation (test Abnormal code = 04835-6) [facility]UG (IMMUNOASSAY) - COMPREHENSIVE DRUG [id number] 23:28:12 Test Item Value Reference Range Interpretation Comments INGA S (test code = Negative Negative 4658313145) BENZO S (test code = Negative Negative 2291144262) TRICYCLIC (test code = Presumptive Positive Negative A 0510772595) KIM (test code = KIM) Serum Drug Screen Cutoff Ranges Barbiturates ? ? - 3 mcg/mLBenzodiazepines ?- 50 ng/mLTCA ?- 300 ng/mL Test developed and characteristics determined by [facility] Laboratory Services. The results are to be used only for medical (i.e., treatment) purposes. Unconfirmed screening results must not be used for non-medical purposes (e.g., employment testing, legal testing). Lab Interpretation Abnormal (test code = 59503-7) [facility]ressETHANOL2022-10-22 16:58:54 ALCOHOL<10mg/dL02/03/2022 11:[address] [facility]<10 Jpsentdl80-566 Toxic>100 Depression of EVALUATION ASSISTANT>400 Fatalities ReportedUnMem[facility]COMP. METABOLIC PANEL (47596) 2022-02-03 16:24:17 Test Item Value Reference Range Interpretation Comments NA (test code = 138 mmol/L 135-145 8189656563) K (test code = 4.2 mmol/L 3.5-5 8918751053) CL (test code = 102 mmol/L 98-108 4401756325) CO2 TOTAL (test code = 24 mmol/L 23-31 6919663642) AGAP (test code = 2-16 8567612883) BUN (test code = 19 mg/dL 7-23 9193691814) GLUCOSE (test code = 128 mg/dL 70-110 H 4838791562) CREATININE (test code = 0.56 mg/dL 0.5-1.04 6004437750) TOTAL BILI (test code = 2.7 mg/dL 0.1-1.1 H 5191499433) CALCIUM (test code = 8.7 mg/dL 8.6-10.6 2607549279) T PROTEIN (test code = 7.2 g/dL 6.3-8.2 4647240387) ALBUMIN (test code = 4.0 g/dL 3.5-5 4485085134) ALK PHOS (test code = 627 U/L 34-122 H 8285645683) ALTv (test code = 77 U/L 5-35 H 1742-6) AST(SGOT) (test code = 87 U/L 13-40 H 7894542131) eGFR (test code = mL/min/1.73m2 6918158033) KIM (test code = KIM) Association of [...] tests). Lab Interpretation Abnormal (test code = 09165-1) [facility] 16:23:57 Test Item Value Reference Range Interpretation Comments LIPASE (test code = 6701936198) 35 U/L 0-220 Lab Interpretation (test code = Normal 02554-1) [facility]ress[facility]YLASE2022-10-22 16:23:11 Test Item Value Reference Range Interpretation Comments JORGE (test code = 5255233799) 42 U/L 35-110 Lab Interpretation (test code = Normal 63565-6) [facility] WITH [id number] 16:10:32 Test Item Value Reference Range Interpretation Comments [...] as normal/abnormal . HGB (test code = 9.0 g/dL 11.6-15 L 718-7) HCT (test code = 27.8 % 35.7-45.2 L 4544-3) MCV (test code = 97.2 fL 80.6-95.5 H 787-2) MCH (test code = 31.5 pg 25.9-32.8 785-6) MCHC (test code = 32.4 g/dL 31.6-35.1 786-4) RDW-SD (test code = 55.9 fL 39-49.9 H 03360-4) RDW-CV (test code = 15.9 % 12-15.5 H 788-0) PLT (test code = See_Comment [Automated 777-3) message] The sy stem which generated this result transmitted reference range : 166 - 358 10*3/ ?L. The reference r luca was not used to interpret this result as normal/abnormal . MPV (test code = 9.5 fL 9.5-12.9 20132-8) NRBC/100 WBC (test See_Comment [Automat ed code = 6135472345) message] The system which generated this result transmitted reference range : 0.0 - 10.0 /100 WBCs. The refer ence range was not u sed to interpret th is result as normal/abnormal . NRBC x10^3 (test code See_Comment [Auto mated = [id number]) message] The s ystem which generated this result transmitted reference range : 10*3/?L. The reference range was not used to interpret this result as normal/abnormal . GRAN MAT (NEUT) % 88.9 % (test code = 770-8) IMM GRAN % (test code 0.20 % = [id number]) LYMPH % (test code = 4.9 % 736-9) MONO % (test code = 5.8 % 5905-5) EOS % (test code = 0.0 % 713-8) BASO % (test code = 0.2 % 706-2) GRAN MAT x10^3(ANC) 4.72 10*3/uL 1.88-7.09 (test code = [id number]) IMM GRAN x10^3 (test 0-0.06 code = [id number]) LYMPH x10^3 (test code 0.26 10*3/uL 1.32-3.29 L = 731-0) MONO x10^3 (test code 0.31 10*3/uL 0.33-0.92 L = 742-7) EOS x10^3 (test code = 0.03-0.39 L 711-2) BASO x10^3 (test code 0.01-0.07 = 704-7) Lab Interpretation Abnormal (test code = 16877-9) [facility] WITH [id number] 10:06:02 Test Item Value Reference Range Interpretation Comments [...] 11.6-15.0 L 718-7) HCT (test code = 31.8 % 35.7-45.2 L 4544-3) MCV (test code = 94.6 fL 80.6-95.5 787-2) MCH (test code = 30.7 pg 25.9-32.8 785-6) MCHC (test code = 32.4 g/dL 31.6-35.1 786-4) RDW-SD (test code = 45.6 fL 39.0-49.9 00423-5) RDW-CV (test code = 13.2 % 12.0-15.5 788-0) PLT (test code = See_Comment [Automated 777-3) message] The sy stem which generated this result transmitted reference range : 166 - 358 10*3/ ?L. The reference r luca was not used to interpret this result as normal/abnormal . MPV (test code = 10.1 fL 9.5-12.9 67845-8) NRBC/100 WBC (test See_Comment [Automat ed code = [id number]) message] The system which generated this result transmitted reference range : 0.0 - 10.0 /100 WBCs. The refer ence range was not u sed to interpret th is result as normal/abnormal . NRBC x10^3 (test code <0.01 See_Comment [Auto mated = [id number]) message] The s ystem which generated this result transmitted reference range : 10*3/?L. The reference range was not used to interpret this result as normal/abnormal . GRAN MAT (NEUT) % 47.9 % (test code = 770-8) IMM GRAN % (test code 0.30 % = 9422495020) LYMPH % (test code = 39.0 % 736-9) MONO % (test code = 9.8 % 5905-5) EOS % (test code = 2.5 % 713-8) BASO % (test code = 0.5 % 706-2) GRAN MAT x10^3(ANC) 1.76 10*3/uL 1.88-7.09 L (test code = 3360126816) IMM GRAN x10^3 (test <0.03 0.00-0.06 code = 1413537928) LYMPH x10^3 (test code 1.43 10*3/uL 1.32-3.29 = 731-0) MONO x10^3 (test code 0.36 10*3/uL 0.33-0.92 = 742-7) EOS x10^3 (test code = 0.09 10*3/uL 0.03-0.39 711-2) BASO x10^3 (test code <0.03 0.01-0.07 = 704-7) Lab Interpretation Abnormal (test code = 13852-2) [facility]OL[facility] (83100)2021-09-08 10:01:57 Test Item Value Reference Range Interpretation Comments NA (test code = 137 mmol/L 135-145 1249058043) K (test code = 4.4 mmol/L 3.5-5.0 4132417441) CL (test code = 105 mmol/L 98-108 3185969551) CO2 TOTAL (test code = 27 mmol/L 23-31 7674750319) AGAP (test code = 2-16 3917108503) BUN (test code = 16 mg/dL 7-23 2624336671) GLUCOSE (test code = 91 mg/dL 70-110 8217108470) CREATININE (test code = 0.80 mg/dL 0.50-1.04 3514932627) TOTAL BILI (test code = 1.3 mg/dL 0.1-1.1 H 9781847161) CALCIUM (test code = 8.9 mg/dL 8.6-10.6 7185119144) T PROTEIN (test code = 7.4 g/dL 6.3-8.2 2995778201) ALBUMIN (test code = 4.0 g/dL 3.5-5.0 3224533815) ALK PHOS (test code = 422 U/L 34-122 H 1618115742) ALTv (test code = 64 U/L 5-35 H 1742-6) AST(SGOT) (test code = 53 U/L 13-40 H 5351429269) eGFR (test code = mL/min/1.73m2 0070639271) KIM (test code = KIM) Association of [...] tests). Lab Interpretation Abnormal (test code = 08239-1) [facility]2022-05-27 10:01:57 Test Item Value Reference Range Interpretation Comments MAGNESIUM (test code = 1725048292) 2.1 mg/dL 1.7-2.4 Lab Interpretation (test code = Normal 70014-9) [facility]ressEBV QUANTITATIVE [id number] 14:36:03 Test Item Value Reference Range Interpretation Comments Jocelyn-Quiros Plasma Virus, Quant. Source (test code = 20425-5) Jocelyn-Quiros <390 cpy/mL Virus, Quant. Copy/mL (test code = 16441-4) Jocelyn-Quiros <2.6 log INTERPRETIVE Virus, Quant. Log INFORMATIO N: Jocelyn (test code = [place] [address]-8) Quantitative PC RThe quantitative ra nge of [...] level of detection by e assay.Performed by [employer] [place] <truncated> [facility]2022-05-26 08:53:00 Test Item Value Reference Range Interpretation Comments MAGNESIUM (test code = 8505670334) 1.6 mg/dL 1.7-2.4 L Lab Interpretation (test code = Abnormal 07683-1) [facility] (NA, K, CL, CO2, GLUCOSE, BUN, CREATININE, CA)2021-09-07 08:53:00 Test Item Value Reference Range Interpretation Comments NA (test code = 136 mmol/L 135-145 8758725767) K (test code = 4.6 mmol/L 3.5-5.0 4049575076) CL (test code = 103 mmol/L 98-108 3406236156) CO2 TOTAL (test code 26 mmol/L 23-31 = 6797445885) AGAP (test code = 2-16 8791858883) BUN (test code = 14 mg/dL 7-23 3902020442) GLUCOSE (test code = 100 mg/dL 70-110 4211425225) CREATININE (test code 0.64 mg/dL 0.50-1.04 = 9526679860) CALCIUM (test code = 8.9 mg/dL 8.6-10.6 1424212648) eGFR (test code = mL/min/1.73m2 6652115880) KIM (test code = KIM) Association of [...] abnormalities in imaging tests). [facility]AT[facility] FUN[facility] PAN[facility] (04726) (ALB,T.PRO,BILI T,BU/BC,ALT,AST,ALK PHOS)2021-09-07 08:53:00 Test Item Value Reference Range Interpretation Comments TOTAL BILI (test code = 4583771688) 1.2 mg/dL 0.1-1.1 H BILI UNCON (test code = 4278865620) 0.3 mg/dL 0.1-1.1 BILI CONJ (test code = 9740762800) 0.0 mg/dL 0.0-0.3 T PROTEIN (test code = 1459370915) 7.2 g/dL 6.3-8.2 ALBUMIN (test code = 6381028869) 3.9 g/dL 3.5-5.0 ALK PHOS (test code = 5954526600) 449 U/L 34-122 H ALTv (test code = 1742-6) 75 U/L 5-35 H AST(SGOT) (test code = 0464588252) 55 U/L 13-40 H Lab Interpretation (test code = Abnormal 22870-6) [facility] WITH [id number] 08:24:58 Test Item Value Reference Range Interpretation [...] RDW-SD (test code = 45.1 fL 39.0-49.9 99068-8) RDW-CV (test code = 13.2 % 12.0-15.5 788-0) PLT (test code = See_Comment L [Automated 777-3) message] The sy stem which generated this result transmitted reference range : 166 - 358 10*3/ ?L. The reference r luca was not used to interpret this result as normal/abnormal . MPV (test code = 10.0 fL 9.5-12.9 46882-2) NRBC/100 WBC (test See_Comment [Automat ed code = 7375392711) message] The system which generated this result transmitted reference range : 0.0 - 10.0 /100 WBCs. The refer ence range was not u sed to interpret th is result as normal/abnormal . NRBC x10^3 (test code <0.01 See_Comment [Auto mated = 9352569185) message] The s ystem which generated this result transmitted reference range : 10*3/?L. The reference range was not used to interpret this result as normal/abnormal . GRAN MAT (NEUT) % 41.2 % (test code = 770-8) IMM GRAN % (test code 0.30 % = 2687585443) LYMPH % (test code = 45.5 % 736-9) MONO % (test code = 10.0 % 5905-5) EOS % (test code = 2.3 % 713-8) BASO % (test code = 0.7 % 706-2) GRAN MAT x10^3(ANC) 1.24 10*3/uL 1.88-7.09 L (test code = 8744897868) IMM GRAN x10^3 (test <0.03 0.00-0.06 code = 7943390778) LYMPH x10^3 (test code 1.37 10*3/uL 1.32-3.29 = 731-0) MONO x10^3 (test code 0.30 10*3/uL 0.33-0.92 L = 742-7) EOS x10^3 (test code = 0.07 10*3/uL 0.03-0.39 711-2) BASO x10^3 (test code <0.03 0.01-0.07 = 704-7) Lab Interpretation Abnormal (test code = 77298-4) [facility]ressANTI-NUCLEAR ANTIBODY-PATHOLOGIST [id number] 17:03:59ANA - Pathologist InterpretationANA HEp-2 IIFA Pathologist Interpretation Report Patient Name: Radha Alemna? ?Antinuclear Antibody (LESLY) Test (Anti-Cell Antibodies Test) [...] MD ?09/06/2021 ?12:02 PM ?[facility] (NA, K, CL, CO2, GLUCOSE, BUN, CREATININE, CA)2021-09-06 10:30:13 Test Item Value Reference Range Interpretation Comments NA (test code = 137 mmol/L 135-145 9178462201) K (test code = 4.5 mmol/L 3.5-5.0 Slight hemoly sis 5136838746) CL (test code = 105 mmol/L 98-108 8714932191) CO2 TOTAL (test 27 mmol/L 23-31 code = 8432899667) AGAP (test code = 2-16 7502588711) BUN (test code = 15 mg/dL 7-23 Slight hemo lysis 1995291917) GLUCOSE (test code 102 mg/dL 70-110 = 2753603750) CREATININE (test 0.70 mg/dL 0.50-1.04 code = 1357831336) CALCIUM (test code 8.7 mg/dL 8.6-10.6 = 2422732174) eGFR (test code = mL/min/1.73m2 2907057145) KIM (test code = Association of KIM) [...] abnormalities in imaging tests). [facility]ressHEPATIC FUNCTION PANEL (78450) (ALB,T.PRO,BILI T,BU/BC,ALT,AST,ALK PHOS)2021-09-06 10:30:13 Test Item Value Reference Range Interpretation Comments TOTAL BILI (test code = 2590905058) 1.3 mg/dL 0.1-1.1 H BILI UNCON (test code = 8500171570) 0.3 mg/dL 0.1-1.1 BILI CONJ (test code = 6280091328) 0.0 mg/dL 0.0-0.3 T PROTEIN (test code = 1755488297) 7.2 g/dL 6.3-8.2 ALBUMIN (test code = 4014239905) 3.9 g/dL 3.5-5.0 ALK PHOS (test code = 0308310480) 447 U/L 34-122 H ALTv (test code = 1742-6) 89 U/L 5-35 H AST(SGOT) (test code = 0635192712) 69 U/L 13-40 H Lab Interpretation (test code = Abnormal 53040-7) [facility]2022-05-25 10:30:13 Test Item Value Reference Range Interpretation Comments MAGNESIUM (test code = 6013635738) 1.6 mg/dL 1.7-2.4 L Lab Interpretation (test code = Abnormal 08535-0) [facility]ressANTI-NUCLEAR ANTIBODY [id number] 01:05:07 Test Item Value Reference Range Interpretation Comments LESLY Titer by IFA >=1:1280 (test code = 5089837512) LESLY Pattern Speckled Cytoplasmic (test code = staining reacti ons 1244422137) observed. KIM (test code = Anti-nuclear KIM) [...] specimen will be held for 7 days. [facility] MUSCLE AB,IGG [id number] 21:57:55 Test Item Value Reference Range Interpretation Comments F-ACTIN (SMOOTH See_Comment If F-Actin (Smooth Muscle) MUSCLE) AB, Antibody, IgG i s negative, IGG(BEAKER) (test the Smooth Muscle Antibody code = 08969-7) titer by IFA is not performed.REFER ENCE [...] for A IH is strong.Performe d By: [facility] [address] [place], [place] [address]Sygoxrpkvi Director: Praveena Mantilla MD [Automated mess age] The system which ge nerated this result transmit gulshan reference range : 0 - 19 Units. The refe rence range was not used to interpret this result as normal/abnormal . [facility] CypressMITOCHONDRIAL M2 AB, [id number] 21:57:54 Test Item Value Reference Range Interpretation Comments AMA (test code = See_Comment H REFERENCE I NTERVAL: 38715-7) Mitochondrial ( M2) Antibody, IgG ? ?20.0 [...] does not rule out PBC.Perform ed By: [facility] [address] [place], [place] [address]Vzovswsqyv Director: Praveena Mantilla MD [Aut omated message] The sy stem which generated this result transmit gulshan reference range : 0.0 - 24.9 Units. The reference range was not used to int erpret this result as normal/abnormal . Lab Interpretation Abnormal (test code = 00359-3) [facility]UM2022-05-24 09:23:46 Test Item Value Reference Range Interpretation Comments MAGNESIUM (test code = 2225728547) 1.9 mg/dL 1.7-2.4 Lab Interpretation (test code = Normal 90557-9) [facility] METABOLIC PANEL (NA, K, CL, CO2, GLUCOSE, BUN, CREATININE, CA)2021-09-05 09:23:46 Test Item Value Reference Range Interpretation Comments NA (test code = 140 mmol/L 135-145 0733127248) K (test code = 4.5 mmol/L 3.5-5.0 7521420313) CL (test code = 106 mmol/L 98-108 5040443407) CO2 TOTAL (test code 27 mmol/L 23-31 = 2209969139) AGAP (test code = 2-16 9772541401) BUN (test code = 16 mg/dL 7-23 1135676832) GLUCOSE (test code = 89 mg/dL 70-110 6286691525) CREATININE (test code 0.67 mg/dL 0.50-1.04 = 1824052012) CALCIUM (test code = 9.0 mg/dL 8.6-10.6 9375046101) eGFR (test code = mL/min/1.73m2 1755378149) KIM (test code = KIM) Association of [...] urine or abnormalities in imaging tests). [facility]62659[facility] (ALB,T.PRO,BILI T,BU/BC,ALT,AST,ALK PHOS)2021-09-05 09:23:46 Test Item Value Reference Range Interpretation Comments TOTAL BILI (test code = 1598559563) 1.5 mg/dL 0.1-1.1 H BILI UNCON (test code = 1782316071) 0.3 mg/dL 0.1-1.1 BILI CONJ (test code = 4011991652) 0.0 mg/dL 0.0-0.3 T PROTEIN (test code = 6733879783) 7.1 g/dL 6.3-8.2 ALBUMIN (test code = 2770051150) 3.9 g/dL 3.5-5.0 ALK PHOS (test code = 9648607702) 558 U/L 34-122 H ALTv (test code = 1742-6) 112 U/L 5-35 H AST(SGOT) (test code = 6136662383) 82 U/L 13-40 H Lab Interpretation (test code = Abnormal 82847-7) [facility] WITH [id number] 09:09:07 Test Item Value Reference Range Interpretation Comments WBC (test code = See_Comment L [Automated 6690-2) message] The sy stem which generated this result transmitted reference range : 4.30 - 11.10 10*3/?L. The reference range was not used to interpret this result as normal/abnormal . RBC (test code = See_Comment L [Automated 849-8) message] The sy stem which generated this [...] RDW-SD (test code = 45.7 fL 39.0-49.9 79734-4) RDW-CV (test code = 13.2 % 12.0-15.5 788-0) PLT (test code = See_Comment L [Automated 777-3) message] The sy stem which generated this result transmitted reference range : 166 - 358 10*3/ ?L. The reference r luca was not used to interpret this result as normal/abnormal . MPV (test code = 9.7 fL 9.5-12.9 53138-4) NRBC/100 WBC (test See_Comment [Automat ed code = 4044881489) message] The system which generated this result transmitted reference range : 0.0 - 10.0 /100 WBCs. The refer ence range was not u sed to interpret th is result as normal/abnormal . NRBC x10^3 (test code <0.01 See_Comment [Auto mated = 1931532352) message] The s ystem which generated this result transmitted reference range : 10*3/?L. The reference range was not used to interpret this result as normal/abnormal . GRAN MAT (NEUT) % 43.5 % (test code = 770-8) IMM GRAN % (test code 0.30 % = 7995586126) LYMPH % (test code = 39.6 % 736-9) MONO % (test code = 12.8 % 5905-5) EOS % (test code = 3.5 % 713-8) BASO % (test code = 0.3 % 706-2) GRAN MAT x10^3(ANC) 1.25 10*3/uL 1.88-7.09 L (test code = 5000731442) IMM GRAN x10^3 (test <0.03 0.00-0.06 code = 7487113120) LYMPH x10^3 (test code 1.14 10*3/uL 1.32-3.29 L = 731-0) MONO x10^3 (test code 0.37 10*3/uL 0.33-0.92 = 742-7) EOS x10^3 (test code = 0.10 10*3/uL 0.03-0.39 711-2) BASO x10^3 (test code <0.03 0.01-0.07 = 704-7) Lab Interpretation Abnormal (test code = 91040-3) [facility]ANTI-NUCLEAR ANTIBODY [id number] 22:01:12 Test Item Value Reference Range Interpretation Comments LESLY (test code = Cytoplasmic staining Negative A 9951208709) observed KIM (test code = KIM) Negative: [...] observed." Lab Interpretation (test Abnormal code = 13158-3) [facility] CypressCMV BY [id number] 17:58:08 Test Item Value Reference Range Interpretation Comments Specimen Tested Plasma (test code = 2141370742) CMV PCR - log <2.5 See_Comment [Automated IU/mL (test message] The code = 83920-7) system which generated this result transmitted reference range : <2.5 log IU/mL. The reference range was not used to interpr et this result as normal/abnormal . CMV PCR - IU/mL <300 See_Comment [Automated (test code = message] The 86341-5) system which generated this result transmitted reference range : <300 IU/mL. The reference range was not used to interpret this result as normal/abnormal . CMV PCR - log <2.7 See_Comment [Automated copies/mL (test message] The code = 35107-5) system which generated this result transmitted reference range : <2.7 log copies/mL. The reference range was not used to interpret this result as normal/abnormal . CMV PCR - <516 See_Comment [Automated copies/mL (test message] The code = 16674-1) system which generated this result transmitted reference [...] This is a laboratory-developed test using a feed preparation operator labeled ASR (Analyte Specific Reagent) as the reagent providing the specificity of the assay. ?This test was developed and its performance characteristics determined by [facility] Clinical Microbiology Laboratory. It has [...] to perform high complexity clinical laboratory testing. [facility] WITH [id number] 10:05:58 Test Item Value Reference Range Interpretation [...] RDW-SD (test code = 45.3 fL 39.0-49.9 33798-1) RDW-CV (test code = 13.1 % 12.0-15.5 788-0) PLT (test code = See_Comment L [Automated 777-3) message] The sy stem which generated this result transmitted reference range : 166 - 358 10*3/ ?L. The reference r luca was not used to interpret this result as normal/abnormal . MPV (test code = 9.8 fL 9.5-12.9 66697-5) NRBC/100 WBC (test See_Comment [Automat ed code = 5796918417) message] The system which generated this result transmitted reference range : 0.0 - 10.0 /100 WBCs. The refer ence range was not u sed to interpret th is result as normal/abnormal . NRBC x10^3 (test code <0.01 See_Comment [Auto mated = 9713726990) message] The s ystem which generated this result transmitted reference range : 10*3/?L. The reference range was not used to interpret this result as normal/abnormal . GRAN MAT (NEUT) % 46.2 % (test code = 770-8) IMM GRAN % (test code 0.30 % = 7546232544) LYMPH % (test code = 36.6 % 736-9) MONO % (test code = 14.2 % 5905-5) EOS % (test code = 2.4 % 713-8) BASO % (test code = 0.3 % 706-2) GRAN MAT x10^3(ANC) 1.36 10*3/uL 1.88-7.09 L (test code = 2603359984) IMM GRAN x10^3 (test <0.03 0.00-0.06 code = 0711466216) LYMPH x10^3 (test code 1.08 10*3/uL 1.32-3.29 L = 731-0) MONO x10^3 (test code 0.42 10*3/uL 0.33-0.92 = 742-7) EOS x10^3 (test code = 0.07 10*3/uL 0.03-0.39 711-2) BASO x10^3 (test code <0.03 0.01-0.07 = 704-7) Lab Interpretation Abnormal (test code = 37761-8) [facility]MAG[facility]UM2022-05-23 09:55:52 Test Item Value Reference Range Interpretation Comments MAGNESIUM (test code = 9896130806) 2.0 mg/dL 1.7-2.4 Lab Interpretation (test code = Normal 98824-5) [facility] (NA, K, CL, CO2, GLUCOSE, BUN, CREATININE, CA)2021-09-04 09:55:52 Test Item Value Reference Range Interpretation Comments NA (test code = 140 mmol/L 135-145 6529159063) K (test code = 4.2 mmol/L 3.5-5.0 8905373049) CL (test code = 107 mmol/L 98-108 2174464038) CO2 TOTAL (test code 26 mmol/L 23-31 = 0195875004) AGAP (test code = 2-16 0684435317) BUN (test code = 20 mg/dL 7-23 4762838033) GLUCOSE (test code = 106 mg/dL 70-110 9120533792) CREATININE (test code 0.86 mg/dL 0.50-1.04 = 6013258472) CALCIUM (test code = 8.8 mg/dL 8.6-10.6 2275248075) eGFR (test code = mL/min/1.73m2 0297078981) KIM (test code = KIM) Association of [...] abnormalities in imaging tests). [facility]ressHEPAT[facility] FUNCTION PANEL (96012) (ALB,T.PRO,BILI T,BU/BC,ALT,AST,ALK PHOS)2021-09-04 09:55:52 Test Item Value Reference Range Interpretation Comments TOTAL BILI (test code = 9919286858) 1.8 mg/dL 0.1-1.1 H BILI UNCON (test code = 4148269457) 0.6 mg/dL 0.1-1.1 BILI CONJ (test code = 8275006664) 0.0 mg/dL 0.0-0.3 T PROTEIN (test code = 3650989969) 7.1 g/dL 6.3-8.2 ALBUMIN (test code = 6942566629) 3.9 g/dL 3.5-5.0 ALK PHOS (test code = 6615141803) 624 U/L 34-122 H ALTv (test code = 1742-6) 149 U/L 5-35 H AST(SGOT) (test code = 5878142301) 120 U/L 13-40 H Lab Interpretation (test code = Abnormal 23072-7) [facility] WITH [id number] 10:18:25 Test Item Value Reference Range Interpretation [...] RDW-SD (test code = 46.3 fL 39.0-49.9 22581-0) RDW-CV (test code = 13.5 % 12.0-15.5 788-0) PLT (test code = See_Comment L [Automated 777-3) message] The sy stem which generated this result transmitted reference range : 166 - 358 10*3/ ?L. The reference r luca was not used to interpret this result as normal/abnormal . MPV (test code = 9.5 fL 9.5-12.9 63920-3) NRBC/100 WBC (test See_Comment [Automat ed code = 3134777104) message] The system which generated this result transmitted reference range : 0.0 - 10.0 /100 WBCs. The refer ence range was not u sed to interpret th is result as normal/abnormal . NRBC x10^3 (test code <0.01 See_Comment [Auto mated = 6757209894) message] The s ystem which generated this result transmitted reference range : 10*3/?L. The reference range was not used to interpret this result as normal/abnormal . GRAN MAT (NEUT) % 49.9 % (test code = 770-8) IMM GRAN % (test code 0.00 % = 0916969181) LYMPH % (test code = 33.0 % 736-9) MONO % (test code = 14.2 % 5905-5) EOS % (test code = 2.6 % 713-8) BASO % (test code = 0.3 % 706-2) GRAN MAT x10^3(ANC) 1.51 10*3/uL 1.88-7.09 L (test code = 5831959900) IMM GRAN x10^3 (test <0.03 0.00-0.06 code = 1060191361) LYMPH x10^3 (test code 1.00 10*3/uL 1.32-3.29 L = 731-0) MONO x10^3 (test code 0.43 10*3/uL 0.33-0.92 = 742-7) EOS x10^3 (test code = 0.08 10*3/uL 0.03-0.39 711-2) BASO x10^3 (test code <0.03 0.01-0.07 = 704-7) Lab Interpretation Abnormal (test code = 42562-1) [facility]ressCOMP. METABOLIC PANEL (90972)2021-09-03 10:04:46 Test Item Value Reference Range Interpretation Comments NA (test code = 140 mmol/L 135-145 2236189096) K (test code = 4.5 mmol/L 3.5-5.0 8444158426) CL (test code = 107 mmol/L 98-108 3528718243) CO2 TOTAL (test code = 22 mmol/L 23-31 L 5153256465) AGAP (test code = 2-16 6424344511) BUN (test code = 20 mg/dL 7-23 3513763695) GLUCOSE (test code = 84 mg/dL 70-110 7577961662) CREATININE (test code = 0.92 mg/dL 0.50-1.04 7762401623) TOTAL BILI (test code = 2.2 mg/dL 0.1-1.1 H 2613251979) CALCIUM (test code = 8.9 mg/dL 8.6-10.6 4876938845) T PROTEIN (test code = 7.4 g/dL 6.3-8.2 0007168600) ALBUMIN (test code = 4.1 g/dL 3.5-5.0 6390128671) ALK PHOS (test code = 658 U/L 34-122 H 7961853041) ALTv (test code = 169 U/L 5-35 H 1742-6) AST(SGOT) (test code = 163 U/L 13-40 H 8353894088) eGFR (test code = mL/min/1.73m2 4230277837) KIM (test code = KIM) Association of [...] tests). Lab Interpretation Abnormal (test code = 06948-0) [facility]MAG[facility]2022-05-22 10:04:46 Test Item Value Reference Range Interpretation Comments MAGNESIUM (test code = 7280655619) 2.0 mg/dL 1.7-2.4 Lab Interpretation (test code = Normal 77873-9) [facility]ressALPHA 1 [id number] 19:24:55 Test Item Value Reference Range Interpretation Comments Anti-Trypsin (test code = 174 mg/dL 83-199 2870598494) Lab Interpretation (test code = Normal 01357-5) [facility]ressCERULOPLASMIN2022-05-21 19:24:50 Test Item Value Reference Range Interpretation Comments CERULO (test code = 1512718825) 48 mg/dL 25-63 Lab Interpretation (test code = Normal 34055-2) [facility] CypressIMMUNOGLOBULIN [id number] 19:24:45 Test Item Value Reference Range Interpretation Comments IgG (test code = 4314419528) 1210 mg/dL 636-1600 Lab Interpretation (test code = Normal 95934-2) [facility] CypressHAV ANTIBODY (IGG AND IGM)2021-09-02 18:39:52 Test Item Value Reference Range Interpretation Comments HAV Total (test code Positive = 0069384023) HAVT Semi-Quantitative (test code = 9977047661) KIM (test code = KIM) Indicates past or present infection with HAV or exposure to HAV due to vaccination. [facility] CypressFERRITIN [id number] 18:15:24 Test Item Value Reference Range Interpretation Comments FERRITIN (test code = 63.8 ng/mL 11.0-264.0 3200796743) KIM (test code = KIM) Biotin has been reported to cause a negative bias, interpret results relative to patient's use of biotin. Lab Interpretation (test Normal code = 72498-8) [facility] CypressHEPATITIS B SURFACE [id number] 18:11:43 Test Item Value Reference Range Interpretation Comments HBsAg Semi-Quantitative (test code = Negative Negative 5195-3) [facility]HE[facility] SURFACE [id number] 17:43:23 Test Item Value Reference Range Interpretation Comments HBsAB (test code = Negative 4579795328) HBsAb mIU/mL Semi-Quantitative (test code = 2735571586) KIM (test code = Interpretation: KIM) ?Hepatitis B Surface Antibody ? Negative - Patient is considered to be not immune to infection with HBV. ? ? Positive - Anti-HBs detected at greater than or equal to 12 mIU/mL. ?Patient is considered to be immune to infection with HBV. ? [facility]TIB[facility] (IGM & IGG)2021-09-02 17:43:23 Test Item Value Reference Range Interpretation Comments HBC (test code = 0228317774) Negative HBC Semi-Quantitative (test code = 6374545218) [facility] [id number] 17:43:23 Test Item Value Reference Range Interpretation Comments HCV Ab (test code = 20178-4) Negative HCV Semi-Quantitative (test code = 23341-6) [facility]2022-05-21 17:40:42 Test Item Value Reference Range Interpretation Comments MAGNESIUM (test code = 9610963146) 1.9 mg/dL 1.7-2.4 Lab Interpretation (test code = Normal 38815-9) [facility]2022-05-21 17:40:42 Test Item Value Reference Range Interpretation Comments PHOSPHORUS (test code = 9661750671) 4.0 mg/dL 2.5-5.0 Lab Interpretation (test code = Normal 77393-3) [facility] METABOLIC PANEL (66903)2021-09-02 17:40:42 Test Item Value Reference Range Interpretation Comments NA (test code = 138 mmol/L 135-145 0824110249) K (test code = 4.2 mmol/L 3.5-5.0 1746547894) CL (test code = 106 mmol/L 98-108 1968906874) CO2 TOTAL (test code = 24 mmol/L 23-31 7737413966) AGAP (test code = 2-16 8365184483) BUN (test code = 14 mg/dL 7-23 4971302886) GLUCOSE (test code = 88 mg/dL 70-110 6239475343) CREATININE (test code = 0.60 mg/dL 0.50-1.04 7929488730) TOTAL BILI (test code = 2.1 mg/dL 0.1-1.1 H 1543070739) CALCIUM (test code = 8.8 mg/dL 8.6-10.6 3760455741) T PROTEIN (test code = 7.3 g/dL 6.3-8.2 2487999127) ALBUMIN (test code = 4.0 g/dL 3.5-5.0 6800307755) ALK PHOS (test code = 659 U/L 34-122 H 6708315788) ALTv (test code = 183 U/L 5-35 H 1742-6) AST(SGOT) (test code = 167 U/L 13-40 H 5446849981) eGFR (test code = mL/min/1.73m2 5024243795) KIM (test code = KIM) Association of [...] tests). Lab Interpretation Abnormal (test code = 92335-2) [facility] 16[facility]56:49 Test Item Value Reference Range Interpretation Comments ACETAMINOP (test code = <10.0 10.0-30.0 L 8839158166) KIM (test code = KIM) Toxic: Greater than 200 ug/mL @ 4 hour post ingestion or greater than 50 ug/mL @ 12 hour post ingestion Lab Interpretation (test Abnormal code = 96065-7) [facility] WITH [id number] 16:41:43 Test Item Value Reference Range Interpretation [...] RDW-SD (test code = 47.5 fL 39.0-49.9 30553-0) RDW-CV (test code = 13.9 % 12.0-15.5 788-0) PLT (test code = See_Comment L [Automated 777-3) message] The sy stem which generated this result transmitted reference range : 166 - 358 10*3/ ?L. The reference r luca was not used to interpret this result as normal/abnormal . MPV (test code = 9.9 fL 9.5-12.9 27230-2) NRBC/100 WBC (test See_Comment [Automat ed code = 6484159577) message] The system which generated this result transmitted reference range : 0.0 - 10.0 /100 WBCs. The refer ence range was not u sed to interpret th is result as normal/abnormal . NRBC x10^3 (test code <0.01 See_Comment [Auto mated = 3364048635) message] The s ystem which generated this result transmitted reference range : 10*3/?L. The reference range was not used to interpret this result as normal/abnormal . GRAN MAT (NEUT) % 47.4 % (test code = 770-8) IMM GRAN % (test code 0.30 % = 3367448503) LYMPH % (test code = 37.4 % 736-9) MONO % (test code = 12.1 % 5905-5) EOS % (test code = 2.5 % 713-8) BASO % (test code = 0.3 % 706-2) GRAN MAT x10^3(ANC) 1.52 10*3/uL 1.88-7.09 L (test code = 0288352000) IMM GRAN x10^3 (test <0.03 0.00-0.06 code = 5132665706) LYMPH x10^3 (test code 1.20 10*3/uL 1.32-3.29 L = 731-0) MONO x10^3 (test code 0.39 10*3/uL 0.33-0.92 = 742-7) EOS x10^3 (test code = 0.08 10*3/uL 0.03-0.39 711-2) BASO x10^3 (test code <0.03 0.01-0.07 = 704-7) Lab Interpretation Abnormal (test code = 51711-1) [facility]throm[facility] (PTT[facility] / [id number] 15:58:16 Test Item Value Reference Range Interpretation [...] tions. Lab Interpretation (test Normal code = 95709-9) [facility]ressTROPONIN [id number] 19:18:37 Test Item Value Reference Interpretation Comments Range TROPONIN I (test 0.004 ng/mL See_Comment [Automated code = 4365084624) message] The system which generated this result [...] biotin. Lab Interpretation Normal (test code = 86323-5) [facility] METABOLIC PANEL ([id number])2021-09-01 19:07:17 Test Item Value Reference Range Interpretation Comments NA (test code = 139 mmol/L 135-145 4301780226) K (test code = 4.5 mmol/L 3.5-5.0 1277328115) CL (test code = 104 mmol/L 98-108 9063023821) CO2 TOTAL (test code = 21 mmol/L 23-31 L 6513120440) AGAP (test code = 2-16 6496718537) BUN (test code = 17 mg/dL 7-23 6901455194) GLUCOSE (test code = 90 mg/dL 70-110 6056678925) CREATININE (test code = 0.63 mg/dL 0.50-1.04 2047562480) TOTAL BILI (test code = 1.6 mg/dL 0.1-1.1 H 7159845728) CALCIUM (test code = 9.5 mg/dL 8.6-10.6 1418382557) T PROTEIN (test code = 9.0 g/dL 6.3-8.2 H 3325088380) ALBUMIN (test code = 4.9 g/dL 3.5-5.0 8847077226) ALK PHOS (test code = 820 U/L 34-122 H 6944544451) ALTv (test code = 238 U/L 5-35 H 1742-6) AST(SGOT) (test code = 256 U/L 13-40 H 7201275037) eGFR (test code = mL/min/1.73m2 2672804885) KIM (test code = KIM) Association of [...] tests). Lab Interpretation Abnormal (test code = 16836-0) [facility]2022-05-20 19:07:17 Test Item Value Reference Range Interpretation Comments MAGNESIUM (test code = 4337152013) 1.8 mg/dL 1.7-2.4 Lab Interpretation (test code = Normal 88116-1) [facility]2022-[facility]-20 19:06:57 Test Item Value Reference Range Interpretation Comments LIPASE (test code = 0393533080) 85 U/L 0-220 Lab Interpretation (test code = Normal 72382-8) [facility] WITH [id number] 18:56:38 Test Item Value Reference Range Interpretation Comments WBC (test code = See_Comment [Automated 8790-2) message] The sy stem which generated this [...] RDW-SD (test code = 48.2 fL 39.0-49.9 34412-9) RDW-CV (test code = 14.1 % 12.0-15.5 788-0) PLT (test code = See_Comment [Automated 777-3) message] The sy stem which generated this result transmitted reference range : 166 - 358 10*3/ ?L. The reference r luca was not used to interpret this result as normal/abnormal . MPV (test code = 9.9 fL 9.5-12.9 50750-7) NRBC/100 WBC (test See_Comment [Automat ed code = 0106616841) message] The system which generated this result transmitted reference range : 0.0 - 10.0 /100 WBCs. The refer ence range was not u sed to interpret th is result as normal/abnormal . NRBC x10^3 (test code <0.01 See_Comment [Auto mated = 8651305053) message] The s ANTERIOStem which generated this result transmitted reference range : 10*3/?L. The reference range was not used to interpret this result as normal/abnormal . GRAN MAT (NEUT) % 65.1 % (test code = 770-8) IMM GRAN % (test code 0.40 % = 1802857397) LYMPH % (test code = 21.5 % 736-9) MONO % (test code = 11.0 % 5905-5) EOS % (test code = 1.6 % 713-8) BASO % (test code = 0.4 % 706-2) GRAN MAT x10^3(ANC) 3.33 10*3/uL 1.88-7.09 (test code = 3748965096) IMM GRAN x10^3 (test <0.03 0.00-0.06 code = 4399169221) LYMPH x10^3 (test code 1.10 10*3/uL 1.32-3.29 L = 731-0) MONO x10^3 (test code 0.56 10*3/uL 0.33-0.92 = 742-7) EOS x10^3 (test code = 0.08 10*3/uL 0.03-0.39 711-2) BASO x10^3 (test code <0.03 0.01-0.07 = 704-7) Lab Interpretation Abnormal (test code = 29339-8) [id number] 16:53:34 Test Item Value Reference Interpretation Comments Range TROPONIN I (test 0.003 ng/mL See_Comment [Automated code = 8567760368) message] The system which generated this result [...] biotin. Lab Interpretation Normal (test code = 39333-2) [facility]. METABOLIC PANEL ([id number])2021-08-27 16:42:16 Test Item Value Reference Range Interpretation Comments NA (test code = 139 mmol/L 135-145 7443536654) K (test code = 4.2 mmol/L 3.5-5.0 4699539657) CL (test code = 104 mmol/L 98-108 6755772928) CO2 TOTAL (test code = 23 mmol/L 23-31 4524502444) AGAP (test code = 2-16 5914950147) BUN (test code = 12 mg/dL 7-23 5803606603) GLUCOSE (test code = 91 mg/dL 70-110 9941582183) CREATININE (test code = 0.52 mg/dL 0.50-1.04 3787376478) TOTAL BILI (test code = 1.2 mg/dL 0.1-1.1 H 2811128224) CALCIUM (test code = 9.1 mg/dL 8.6-10.6 0678024393) T PROTEIN (test code = 7.7 g/dL 6.3-8.2 6955538139) ALBUMIN (test code = 4.3 g/dL 3.5-5.0 7410489481) ALK PHOS (test code = 530 U/L 34-122 H 7510391132) ALTv (test code = 84 U/L 5-35 H 1742-6) AST(SGOT) (test code = 93 U/L 13-40 H 6377041238) eGFR (test code = mL/min/1.73m2 2351119409) KIM (test code = KIM) Association of [...] tests). Lab Interpretation Abnormal (test code = 94783-1) [facility] 16:41:56 Test Item Value Reference Range Interpretation Comments LIPASE (test code = 9172988896) 67 U/L 0-220 Lab Interpretation (test code = Normal 15638-8) [facility] WITH [id number] 16:30:44 Test Item Value Reference Range Interpretation Comments WBC (test code = See_Comment [Automated 6263-2) message] The sy stem which generated this result transmitted reference range : 4.30 - 11.10 10*3/?L. The reference range was not used to interpret this result as normal/abnormal . RBC (test code = See_Comment L [Automated 819-8) message] The sy stem which generated this [...] RDW-SD (test code = 49.4 fL 39.0-49.9 62968-8) RDW-CV (test code = 14.4 % 12.0-15.5 788-0) PLT (test code = See_Comment L [Automated 777-3) message] The sy stem which generated this result transmitted reference range : 166 - 358 10*3/ ?L. The reference r luca was not used to interpret this result as normal/abnormal . MPV (test code = 10.1 fL 9.5-12.9 67000-7) IPF % (test code = 2.6 % 1.3-7.7 Platelet count 1535519975) measured by fluorescence method. NRBC/100 WBC (test See_Comment [Automat ed code = 3361791842) message] The system which generated this result transmitted reference range : 0.0 - 10.0 /100 WBCs. The refer ence range was not u sed to interpret th is result as normal/abnormal . NRBC x10^3 (test code <0.01 See_Comment [Auto mated = 9046329467) message] The s ystem which generated this result transmitted reference range : 10*3/?L. The reference range was not used to interpret this result as normal/abnormal . GRAN MAT (NEUT) % 70.3 % (test code = 770-8) IMM GRAN % (test code 0.20 % = 7682237572) LYMPH % (test code = 21.3 % 736-9) MONO % (test code = 6.9 % 5905-5) EOS % (test code = 1.1 % 713-8) BASO % (test code = 0.2 % 706-2) GRAN MAT x10^3(ANC) 3.14 10*3/uL 1.88-7.09 (test code = 5208313864) IMM GRAN x10^3 (test <0.03 0.00-0.06 code = 4731509210) LYMPH x10^3 (test code 0.95 10*3/uL 1.32-3.29 L = 731-0) MONO x10^3 (test code 0.31 10*3/uL 0.33-0.92 L = 742-7) EOS x10^3 (test code = 0.05 10*3/uL 0.03-0.39 711-2) BASO x10^3 (test code <0.03 0.01-0.07 = 704-7) Lab Interpretation Abnormal (test code = 14002-7) [facility] GLUCOSE (AUTOMATED)2021-07-28 22:32:51 Test Item Value Reference Range Interpretation Comments POCT GLU (test code = 6594548828) 94 mg/dL 70-110 Lab Interpretation (test code = Normal 93421-0) [facility] GLUCOSE (AUTOMATED)2021-07-28 16:56:05 Test Item Value Reference Range Interpretation Comments POCT GLU (test code = 3724169766) 107 mg/dL 70-110 Lab Interpretation (test code = Normal 69146-6) [facility] GLUCOSE (AUTOMATED)2021-07-28 13:01:41 Test Item Value Reference Range Interpretation Comments POCT GLU (test code = 1323764065) 104 mg/dL 70-110 Lab Interpretation (test code = Normal 54707-6) [facility]. METABOLIC PANEL ([id number])2021-07-28 11:55:38 Test Item Value Reference Range Interpretation Comments NA (test code = 140 mmol/L 135-145 6423509375) K (test code = 3.6 mmol/L 3.5-5.0 6805693930) CL (test code = 108 mmol/L 98-108 5155045109) CO2 TOTAL (test code = 27 mmol/L 23-31 8234047168) AGAP (test code = 2-16 1984378825) BUN (test code = 3 mg/dL 7-23 L 5213477199) GLUCOSE (test code = 93 mg/dL 70-110 3816207656) CREATININE (test code = 0.49 mg/dL 0.50-1.04 L 9027248583) TOTAL BILI (test code = 1.0 mg/dL 0.1-1.6 8768733291) CALCIUM (test code = 8.3 mg/dL 8.6-10.6 L 2657070233) T PROTEIN (test code = 6.5 g/dL 6.3-8.2 8488988126) ALBUMIN (test code = 3.6 g/dL 3.5-5.0 9000273668) ALK PHOS (test code = 431 U/L 34-122 H 2148151852) ALTv (test code = 80 U/L 5-35 H 1742-6) AST(SGOT) (test code = 74 U/L 13-40 H 1361165500) eGFR (test code = mL/min/1.73m2 0984555805) KIM (test code = KIM) Association of [...] tests). Lab Interpretation Abnormal (test code = 35263-5) [facility] 11:55:38 Test Item Value Reference Range Interpretation Comments LIPASE (test code = 0422968778) 74 U/L 0-220 Lab Interpretation (test code = Normal 15178-7) [facility] WITH [id number] 10:40:07 Test Item Value Reference Range Interpretation [...] RDW-SD (test code = 49.7 fL 39.0-49.9 31264-7) RDW-CV (test code = 14.3 % 12.0-15.5 788-0) PLT (test code = See_Comment L [Automated 777-3) message] The sy stem which generated this result transmitted reference range : 166 - 358 10*3/ ?L. The reference r luca was not used to interpret this result as normal/abnormal . MPV (test code = 9.3 fL 9.5-12.9 L 56570-3) NRBC/100 WBC (test See_Comment [Automat ed code = 6498377655) message] The system which generated this result transmitted reference range : 0.0 - 10.0 /100 WBCs. The refer ence range was not u sed to interpret th is result as normal/abnormal . NRBC x10^3 (test code <0.01 See_Comment [Auto mated = 7229861101) message] The s ystem which generated this result transmitted reference range : 10*3/?L. The reference range was not used to interpret this result as normal/abnormal . GRAN MAT (NEUT) % 49.4 % (test code = 770-8) IMM GRAN % (test code 0.00 % = 4677308681) LYMPH % (test code = 38.0 % 736-9) MONO % (test code = 10.0 % 5905-5) EOS % (test code = 2.2 % 713-8) BASO % (test code = 0.4 % 706-2) GRAN MAT x10^3(ANC) 1.34 10*3/uL 1.88-7.09 L (test code = 4844548335) IMM GRAN x10^3 (test <0.03 0.00-0.06 code = 5137389745) LYMPH x10^3 (test code 1.03 10*3/uL 1.32-3.29 L = 731-0) MONO x10^3 (test code 0.27 10*3/uL 0.33-0.92 L = 742-7) EOS x10^3 (test code = 0.06 10*3/uL 0.03-0.39 711-2) BASO x10^3 (test code <0.03 0.01-0.07 = 704-7) Lab Interpretation Abnormal (test code = 45800-9) [facility] GLUCOSE (AUTOMATED)2021-07-28 09:10:56 Test Item Value Reference Range Interpretation Comments POCT GLU (test code = 4354372274) 80 mg/dL 70-110 Lab Interpretation (test code = Normal 30546-1) [facility] GLUCOSE (AUTOMATED)2021-07-28 04:43:28 Test Item Value Reference Range Interpretation Comments POCT GLU (test code = 0392846650) 115 mg/dL 70-110 H Lab Interpretation (test code = Abnormal 67191-3) [facility] GLUCOSE (AUTOMATED)2021-07-28 01:22:31 Test Item Value Reference Range Interpretation Comments POCT GLU (test code = 3134971005) 94 mg/dL 70-110 Lab Interpretation (test code = Normal 31211-2) [facility] GLUCOSE (AUTOMATED)2021-07-27 21:50:22 Test Item Value Reference Range Interpretation Comments POCT GLU (test code = 3657205940) 108 mg/dL 70-110 Lab Interpretation (test code = Normal 34776-9) [facility] GLUCOSE (AUTOMATED)2021-07-27 17:02:26 Test Item Value Reference Range Interpretation Comments POCT GLU (test code = 6762708099) 102 mg/dL 70-110 Lab Interpretation (test code = Normal 55197-7) [facility] GLUCOSE (AUTOMATED)2021-07-27 12:47:28 Test Item Value Reference Range Interpretation Comments POCT GLU (test code = 4685612594) 106 mg/dL 70-110 Lab Interpretation (test code = Normal 56622-2) [facility] WITH [id number] 12:34:02 Test Item Value Reference Range Interpretation [...] RDW-SD (test code = 47.6 fL 39.0-49.9 73218-1) RDW-CV (test code = 14.0 % 12.0-15.5 788-0) PLT (test code = See_Comment L [Automated 777-3) message] The sy stem which generated this result transmitted reference range : 166 - 358 10*3/ ?L. The reference r luca was not used to interpret this result as normal/abnormal . MPV (test code = 9.5 fL 9.5-12.9 46587-2) NRBC/100 WBC (test See_Comment [Automat ed code = 5793645867) message] The system which generated this result transmitted reference range : 0.0 - 10.0 /100 WBCs. The refer ence range was not u sed to interpret th is result as normal/abnormal . NRBC x10^3 (test code <0.01 See_Comment [Auto mated = 7588033643) message] The s ystem which generated this result transmitted reference range : 10*3/?L. The reference range was not used to interpret this result as normal/abnormal . GRAN MAT (NEUT) % 56.3 % (test code = 770-8) IMM GRAN % (test code 0.80 % = 5010162754) LYMPH % (test code = 33.5 % 736-9) MONO % (test code = 8.6 % 5905-5) EOS % (test code = 0.4 % 713-8) BASO % (test code = 0.4 % 706-2) GRAN MAT x10^3(ANC) 1.50 10*3/uL 1.88-7.09 L (test code = 3876902091) IMM GRAN x10^3 (test <0.03 0.00-0.06 code = 4818358706) LYMPH x10^3 (test code 0.89 10*3/uL 1.32-3.29 L = 731-0) MONO x10^3 (test code 0.23 10*3/uL 0.33-0.92 L = 742-7) EOS x10^3 (test code = <0.03 0.03-0.39 L 711-2) BASO x10^3 (test code <0.03 0.01-0.07 = 704-7) Lab Interpretation Abnormal (test code = 19092-7) [facility] Test Item Value Reference Range Interpretation Comments MAGNESIUM (test code = 3807087280) 2.0 mg/dL 1.7-2.4 Lab Interpretation (test code = Normal 39804-1) [facility] METABOLIC PANEL (NA, K, CL, CO2, GLUCOSE, BUN, CREATININE, CA)2021-07-27 11:06:32 Test Item Value Reference Range Interpretation Comments NA (test code = 141 mmol/L 135-145 9332742396) K (test code = 3.8 mmol/L 3.5-5.0 5235021210) CL (test code = 107 mmol/L 98-108 1299358683) CO2 TOTAL (test code = 25 mmol/L 23-31 3573197572) AGAP (test code = 2-16 6509394019) BUN (test code = 6 mg/dL 7-23 L 3304683528) GLUCOSE (test code = 100 mg/dL 70-110 5178047940) CREATININE (test code = 0.46 mg/dL 0.50-1.04 L 8969627929) CALCIUM (test code = 8.6 mg/dL 8.6-10.6 7355355954) eGFR (test code = mL/min/1.73m2 3592253042) KIM (test code = KIM) Association of [...] tests). Lab Interpretation Abnormal (test code = 65646-2) [facility] GLUCOSE (AUTOMATED)2021-07-27 08:58:50 Test Item Value Reference Range Interpretation Comments POCT GLU (test code = 0765128300) 95 mg/dL 70-110 Lab Interpretation (test code = Normal 68901-7) [facility] GLUCOSE (AUTOMATED)2021-07-27 06:51:37 Test Item Value Reference Range Interpretation Comments POCT GLU (test code = 2157297647) 146 mg/dL 70-110 H Lab Interpretation (test code = Abnormal 25912-0) [facility] GLUCOSE (AUTOMATED)2021-07-27 01:52:10 Test Item Value Reference Range Interpretation Comments POCT GLU (test code = 7346793646) 111 mg/dL 70-110 H Lab Interpretation (test code = Abnormal 33467-3) [facility] 22:12:47 Test Item Value Reference Range Interpretation Comments MAGNESIUM (test code = 6434252514) 1.5 mg/dL 1.7-2.4 L Lab Interpretation (test code = Abnormal 12932-1) [facility] GLUCOSE (AUTOMATED)2021-07-26 22:04:12 Test Item Value Reference Range Interpretation Comments POCT GLU (test code = 6984692740) 106 mg/dL 70-110 Lab Interpretation (test code = Normal 88268-9) [facility] GLUCOSE (AUTOMATED)2021-07-26 16:59:07 Test Item Value Reference Range Interpretation Comments POCT GLU (test code = 4870861358) 80 mg/dL 70-110 Lab Interpretation (test code = Normal 76906-2) [facility] (NA, K, CL, CO2, GLUCOSE, BUN, CREATININE, CA)2021-07-26 12:05:38 Test Item Value Reference Range Interpretation Comments NA (test code = 137 mmol/L 135-145 3775257263) K (test code = 3.9 mmol/L 3.5-5.0 5424575491) CL (test code = 104 mmol/L 98-108 4259300453) CO2 TOTAL (test code = 25 mmol/L 23-31 1265695081) AGAP (test code = 2-16 2590000914) BUN (test code = 8 mg/dL 7-23 2967417631) GLUCOSE (test code = 100 mg/dL 70-110 9787570420) CREATININE (test code = 0.45 mg/dL 0.50-1.04 L 3393813752) CALCIUM (test code = 8.7 mg/dL 8.6-10.6 5591942303) eGFR (test code = mL/min/1.73m2 7456050551) KIM (test code = KIM) Association of [...] tests). Lab Interpretation Abnormal (test code = 50642-6) [facility] 12:04:57 Test Item Value Reference Range Interpretation Comments LIPASE (test code = 6311363426) 58 U/L 0-220 Lab Interpretation (test code = Normal 46127-9) [facility] WITH [id number] 10:22:45 Test Item Value Reference Range Interpretation [...] RDW-SD (test code = 45.4 fL 39.0-49.9 93450-9) RDW-CV (test code = 13.7 % 12.0-15.5 788-0) PLT (test code = See_Comment L [Automated 777-3) message] The sy stem which generated this result transmitted reference range : 166 - 358 10*3/ ?L. The reference r luca was not used to interpret this result as normal/abnormal . MPV (test code = 9.4 fL 9.5-12.9 L 64957-8) NRBC/100 WBC (test See_Comment [Automat ed code = 9208250826) message] The system which generated this result transmitted reference range : 0.0 - 10.0 /100 WBCs. The refer ence range was not u sed to interpret th is result as normal/abnormal . NRBC x10^3 (test code <0.01 See_Comment [Auto mated = 8315136533) message] The s ANTERIOStem which generated this result transmitted reference range : 10*3/?L. The reference range was not used to interpret this result as normal/abnormal . GRAN MAT (NEUT) % 67.8 % (test code = 770-8) IMM GRAN % (test code 0.60 % = 7846469114) LYMPH % (test code = 24.4 % 736-9) MONO % (test code = 6.6 % 5905-5) EOS % (test code = 0.3 % 713-8) BASO % (test code = 0.3 % 706-2) GRAN MAT x10^3(ANC) 2.25 10*3/uL 1.88-7.09 (test code = 7707392366) IMM GRAN x10^3 (test <0.03 0.00-0.06 code = 5232696400) LYMPH x10^3 (test code 0.81 10*3/uL 1.32-3.29 L = 731-0) MONO x10^3 (test code 0.22 10*3/uL 0.33-0.92 L = 742-7) EOS x10^3 (test code = <0.03 0.03-0.39 L 711-2) BASO x10^3 (test code <0.03 0.01-0.07 = 704-7) Lab Interpretation Abnormal (test code = 25503-9) [facility]44337[facility] (ALB,T.PRO,BILI T,BU/BC,ALT,AST,ALK PHOS)2021-07-25 16:47:05 Test Item Value Reference Range Interpretation Comments TOTAL BILI (test code = 6024474305) 1.1 mg/dL 0.1-1.1 BILI UNCON (test code = 2250825364) 0.4 mg/dL 0.1-1.1 BILI CONJ (test code = 8759591406) 0.0 mg/dL 0.0-0.3 T PROTEIN (test code = 7312162241) 4.0 g/dL 6.3-8.2 L ALBUMIN (test code = 3343687641) 1.9 g/dL 3.5-5.0 L ALK PHOS (test code = 9010893591) 229 U/L 34-122 H ALTv (test code = 1742-6) 59 U/L 5-35 H AST(SGOT) (test code = 0332083630) 68 U/L 13-40 H Lab Interpretation (test code = Abnormal 40958-7) [facility] GLUCOSE (AUTOMATED)2021-07-25 14:21:54 Test Item Value Reference Range Interpretation Comments POCT GLU (test code = 2738316950) 113 mg/dL 70-110 H Lab Interpretation (test code = Abnormal 08785-6) [facility] METABOLIC PANEL (NA, K, CL, CO2, GLUCOSE, BUN, CREATININE, CA)2021-07-25 14:06:58 Test Item Value Reference Range Interpretation Comments NA (test code = 132 mmol/L 135-145 L 4669957206) K (test code = 4.1 mmol/L 3.5-5.0 0110503553) CL (test code = 110 mmol/L 98-108 H 8322987922) CO2 TOTAL (test code = 13 mmol/L 23-31 L 4087166109) AGAP (test code = 2-16 4681054236) BUN (test code = 4 mg/dL 7-23 L 9556959264) GLUCOSE (test code = 48 mg/dL 70-110 LL 0653858863) CREATININE (test code = 0.21 mg/dL 0.50-1.04 L 4710490238) CALCIUM (test code = 6.4 mg/dL 8.6-10.6 L 9781455973) eGFR (test code = mL/min/1.73m2 6787626932) KIM (test code = KIM) Association of [...] tests). Lab Interpretation Abnormal (test code = 59475-8) [facility] WITH [id number] 14:04:42 Test Item Value Reference Range Interpretation [...] RDW-SD (test code = 46.7 fL 39.0-49.9 70453-2) RDW-CV (test code = 13.6 % 12.0-15.5 788-0) PLT (test code = See_Comment L [Automated 777-3) message] The sy stem which generated this result transmitted reference range : 166 - 358 10*3/ ?L. The reference r luca was not used to interpret this result as normal/abnormal . MPV (test code = 10.8 fL 9.5-12.9 09926-6) NRBC/100 WBC (test See_Comment [Automat ed code = [id number]) message] The system which generated this result transmitted reference range : 0.0 - 10.0 /100 WBCs. The refer ence range was not u sed to interpret th is result as normal/abnormal . NRBC x10^3 (test code <0.01 See_Comment [Auto mated = [id number]) message] The s ystem which generated this result transmitted reference range : 10*3/?L. The reference range was not used to interpret this result as normal/abnormal . GRAN MAT (NEUT) % 53.2 % (test code = 770-8) IMM GRAN % (test code 0.40 % = [id number]) LYMPH % (test code = 34.3 % 736-9) MONO % (test code = 10.0 % 5905-5) EOS % (test code = 1.7 % 713-8) BASO % (test code = 0.4 % 706-2) GRAN MAT x10^3(ANC) 1.27 10*3/uL 1.88-7.09 L (test code = [id number]) IMM GRAN x10^3 (test <0.03 0.00-0.06 code = [id number]) LYMPH x10^3 (test code 0.82 10*3/uL 1.32-3.29 L = 731-0) MONO x10^3 (test code 0.24 10*3/uL 0.33-0.92 L = 742-7) EOS x10^3 (test code = 0.04 10*3/uL 0.03-0.39 711-2) BASO x10^3 (test code <0.03 0.01-0.07 = 704-7) Lab Interpretation Abnormal (test code = 22089-9) [facility] [place]2022-04-11 11:34:51 Test Item Value Reference Range Interpretation Comments MAGNESIUM (test code = 7628333938) 1.6 mg/dL 1.7-2.4 L Lab Interpretation (test code = Abnormal 06541-7) [facility] Metabolic Panel (NA, K, CL, CO2, GLUCOSE, BUN, CREATININE, CA)2021-07-24 11:34:31 Test Item Value Reference Range Interpretation Comments NA (test code = 137 mmol/L 135-145 2888359587) K (test code = 4.4 mmol/L 3.5-5.0 6204784270) CL (test code = 106 mmol/L 98-108 0447570445) CO2 TOTAL (test code 23 mmol/L 23-31 = 3556065418) AGAP (test code = 2-16 6263395549) BUN (test code = 14 mg/dL 7-23 0529725812) GLUCOSE (test code = 84 mg/dL 70-110 2691304650) CREATININE (test code 0.54 mg/dL 0.50-1.04 = 2814222757) CALCIUM (test code = 8.7 mg/dL 8.6-10.6 1654609397) eGFR (test code = mL/min/1.73m2 6991709992) KIM (test code = KIM) Association of [...] abnormalities in imaging tests). [id number] (ALB,T.PRO,BILI T,BU/BC,ALT,AST,ALK PHOS)2021-07-24 11:34:31 Test Item Value Reference Range Interpretation Comments TOTAL BILI (test code = 3497861510) 1.9 mg/dL 0.1-1.1 H BILI UNCON (test code = 2351788250) 0.8 mg/dL 0.1-1.1 BILI CONJ (test code = 6185189522) 0.0 mg/dL 0.0-0.3 T PROTEIN (test code = 1208801744) 8.0 g/dL 6.3-8.2 ALBUMIN (test code = 0114786883) 4.3 g/dL 3.5-5.0 ALK PHOS (test code = 5457883244) 512 U/L 34-122 H ALTv (test code = 1742-6) 111 U/L 5-35 H AST(SGOT) (test code = 2760721365) 107 U/L 13-40 H Lab Interpretation (test code = Abnormal 92894-2) [facility] with [id number] 10:17:09 Test Item Value Reference Range Interpretation Comments WBC (test code = See_Comment L [Automated 8690-2) message] The sy stem which [...] RDW-SD (test code = 47.5 fL 39.0-49.9 45643-6) RDW-CV (test code = 13.9 % 12.0-15.5 788-0) PLT (test code = See_Comment L [Automated 777-3) message] The sy stem which generated this result transmitted reference range : 166 - 358 10*3/ ?L. The reference r luca was not used to interpret this result as normal/abnormal . MPV (test code = 11.2 fL 9.5-12.9 42235-5) NRBC/100 WBC (test See_Comment [Automat ed code = 9002454004) message] The system which generated this result transmitted reference range : 0.0 - 10.0 /100 WBCs. The refer ence range was not u sed to interpret th is result as normal/abnormal . NRBC x10^3 (test code <0.01 See_Comment [Auto mated = 6525603428) message] The s ystem which generated this result transmitted reference range : 10*3/?L. The reference range was not used to interpret this result as normal/abnormal . GRAN MAT (NEUT) % 49.4 % (test code = 770-8) IMM GRAN % (test code 0.30 % = 4726546703) LYMPH % (test code = 39.2 % 736-9) MONO % (test code = 8.5 % 5905-5) EOS % (test code = 2.3 % 713-8) BASO % (test code = 0.3 % 706-2) GRAN MAT x10^3(ANC) 1.69 10*3/uL 1.88-7.09 L (test code = 2494493045) IMM GRAN x10^3 (test <0.03 0.00-0.06 code = 3507004641) LYMPH x10^3 (test code 1.34 10*3/uL 1.32-3.29 = 731-0) MONO x10^3 (test code 0.29 10*3/uL 0.33-0.92 L = 742-7) EOS x10^3 (test code = 0.08 10*3/uL 0.03-0.39 711-2) BASO x10^3 (test code <0.03 0.01-0.07 = 704-7) Lab Interpretation Abnormal (test code = 28564-7) [facility]ressPhosphorus [id number] 01:21:52 Test Item Value Reference Range Interpretation Comments PHOSPHORUS (test code = 8525062599) 3.9 mg/dL 2.5-5.0 Lab Interpretation (test code = Normal 14082-5) [facility]ressTROPON[facility] [id number] 22:06:24 Test Item Value Reference Interpretation Comments Range TROPONIN I (test 0.006 ng/mL See_Comment [Automated code = 5298395609) message] The system which generated this result [...] biotin. Lab Interpretation Normal (test code = 99475-4) [facility]2022-[facility]-10 21:55:26 Test Item Value Reference Range Interpretation Comments MAGNESIUM (test code = 2722162086) 1.6 mg/dL 1.7-2.4 L Lab Interpretation (test code = Abnormal 86948-6) [facility]. METABOLIC PANEL (29369)2021-07-23 21:55:06 Test Item Value Reference Range Interpretation Comments NA (test code = 139 mmol/L 135-145 9650309206) K (test code = 4.3 mmol/L 3.5-5.0 0632178511) CL (test code = 103 mmol/L 98-108 6606418003) CO2 TOTAL (test code = 24 mmol/L 23-31 9953345508) AGAP (test code = 2-16 3846729870) BUN (test code = 15 mg/dL 7-23 4133962871) GLUCOSE (test code = 102 mg/dL 70-110 8829541386) CREATININE (test code = 0.74 mg/dL 0.50-1.04 8583663745) TOTAL BILI (test code = 2.0 mg/dL 0.1-1.1 H 2146827031) CALCIUM (test code = 9.4 mg/dL 8.6-10.6 3281739513) T PROTEIN (test code = 8.9 g/dL 6.3-8.2 H 0928884583) ALBUMIN (test code = 4.9 g/dL 3.5-5.0 8651697025) ALK PHOS (test code = 653 U/L 34-122 H 2757551240) ALTv (test code = 133 U/L 5-35 H 1742-6) AST(SGOT) (test code = 130 U/L 13-40 H 9380815613) eGFR (test code = mL/min/1.73m2 1844561326) KIM (test code = KIM) Association of [...] tests). Lab Interpretation Abnormal (test code = 93451-6) [facility]ressD-VCVPM5411-11-37 21:55:06 Test Item Value Reference Interpretation Comments Range D-DIMER (test code = See_Comment [Autom ated 6895862312) message] The system which generated this result [...] diagnosis. Lab Interpretation Normal (test code = 42489-6) [facility]LIPASE2022-04-10 21:54:46 Test Item Value Reference Range Interpretation Comments LIPASE (test code = 9721653339) 66 U/L 0-220 Lab Interpretation (test code = Normal 29834-4) [facility] WITH [id number] 21:44:24 Test Item Value Reference Range Interpretation [...] RDW-SD (test code = 47.5 fL 39.0-49.9 49351-6) RDW-CV (test code = 13.9 % 12.0-15.5 788-0) PLT (test code = See_Comment L [Automated 777-3) message] The sy stem which generated this result transmitted reference range : 166 - 358 10*3/ ?L. The reference r luca was not used to interpret this result as normal/abnormal . MPV (test code = 10.1 fL 9.5-12.9 13098-3) NRBC/100 WBC (test See_Comment [Automat ed code = 7743360213) message] The system which generated this result transmitted reference range : 0.0 - 10.0 /100 WBCs. The refer ence range was not u sed to interpret th is result as normal/abnormal . NRBC x10^3 (test code <0.01 See_Comment [Auto mated = 4362986542) message] The s ystem which generated this result transmitted reference range : 10*3/?L. The reference range was not used to interpret this result as normal/abnormal . GRAN MAT (NEUT) % 67.1 % (test code = 770-8) IMM GRAN % (test code 0.20 % = 2924018168) LYMPH % (test code = 24.9 % 736-9) MONO % (test code = 5.9 % 5905-5) EOS % (test code = 1.7 % 713-8) BASO % (test code = 0.2 % 706-2) GRAN MAT x10^3(ANC) 2.74 10*3/uL 1.88-7.09 (test code = 0410004354) IMM GRAN x10^3 (test <0.03 0.00-0.06 code = 2872153975) LYMPH x10^3 (test code 1.02 10*3/uL 1.32-3.29 L = 731-0) MONO x10^3 (test code 0.24 10*3/uL 0.33-0.92 L = 742-7) EOS x10^3 (test code = 0.07 10*3/uL 0.03-0.39 711-2) BASO x10^3 (test code <0.03 0.01-0.07 = 704-7) Lab Interpretation Abnormal (test code = 76284-8) [facility]ressTROPONIN [id number] 21:47:03 Test Item Value Reference Interpretation Comments Range TROPONIN I (test 0.006 ng/mL See_Comment [Automated code = 8895089965) message] The system which generated this result [...] biotin. Lab Interpretation Normal (test code = 40931-4) [facility]ressN-TERMINAL [id number] 21:44:02 Test Item Value Reference Range Interpretation Comments NT-proBNP (test code 75 pg/mL See_Comment [Autom ated = 0232473354) message] The system which generated this result transmitted reference range : <=125. The reference range was not used to interpret this result as normal/abnormal . KIM (test code = KIM) Biotin has been reported to cause a negative bias, interpret results relative to patient's use of biotin. Lab Interpretation Normal (test code = 57335-5) [facility]. METABOLIC PANEL (72505)2021-06-03 21:37:20 Test Item Value Reference Range Interpretation Comments NA (test code = 137 mmol/L 135-145 4388725121) K (test code = 4.2 mmol/L 3.5-5.0 1027528451) CL (test code = 108 mmol/L 98-108 3026396157) CO2 TOTAL (test code = 26 mmol/L 23-31 9932212056) AGAP (test code = 2-16 9205613100) BUN (test code = 13 mg/dL 7-23 1055789564) GLUCOSE (test code = 83 mg/dL 70-110 7059800766) CREATININE (test code = 0.51 mg/dL 0.50-1.04 5284852477) TOTAL BILI (test code = 1.4 mg/dL 0.1-1.1 H 7028875586) CALCIUM (test code = 8.6 mg/dL 8.6-10.6 6811528756) T PROTEIN (test code = 7.8 g/dL 6.3-8.2 6366470197) ALBUMIN (test code = 4.3 g/dL 3.5-5.0 0088026771) ALK PHOS (test code = 731 U/L 34-122 H 5770559230) ALTv (test code = 162 U/L 5-35 H 1742-6) AST(SGOT) (test code = 251 U/L 13-40 H 6611921270) eGFR (test code = mL/min/1.73m2 1722875894) KIM (test code = KIM) Association of [...] tests). Lab Interpretation Abnormal (test code = 66148-6) [facility]ressL[facility]ASE2022-[facility]-19 21:37:00 Test Item Value Reference Range Interpretation Comments LIPASE (test code = 7197178703) 62 U/L 0-220 Lab Interpretation (test code = Normal 36932-3) [facility] CypressACTIVATED PARTIAL THRMPLAS [id number] 21:33:43 Test Item Value Reference Range Interpretation [...] seconds. Lab Interpretation Normal (test code = 20947-2) [facility] CypressPROTHROMBIN TIME / [id number] 21:31:42 Test Item Value Reference Range Interpretation [...] tions. Lab Interpretation (test Normal code = 40599-7) [facility] WITH [id number] 21:18:43 Test Item Value Reference Range Interpretation [...] RDW-SD (test code = 46.3 fL 39.0-49.9 97458-4) RDW-CV (test code = 13.8 % 12.0-15.5 788-0) PLT (test code = See_Comment L [Automated 777-3) message] The sy stem which generated this result transmitted reference range : 166 - 358 10*3/ ?L. The reference r luca was not used to interpret this result as normal/abnormal . MPV (test code = 9.5 fL 9.5-12.9 34296-1) IPF % (test code = 2.0 % 1.3-7.7 Platelet count 0611577307) measured by fluorescence method. NRBC/100 WBC (test See_Comment [Automat ed code = 3084347723) message] The system which generated this result transmitted reference range : 0.0 - 10.0 /100 WBCs. The refer ence range was not u sed to interpret th is result as normal/abnormal . NRBC x10^3 (test code <0.01 See_Comment [Auto mated = 6900572109) message] The s ystem which generated this result transmitted reference range : 10*3/?L. The reference range was not used to interpret this result as normal/abnormal . GRAN MAT (NEUT) % 68.8 % (test code = 770-8) IMM GRAN % (test code 0.20 % = 1286658135) LYMPH % (test code = 20.0 % 736-9) MONO % (test code = 10.3 % 5905-5) EOS % (test code = 0.5 % 713-8) BASO % (test code = 0.2 % 706-2) GRAN MAT x10^3(ANC) 2.79 10*3/uL 1.88-7.09 (test code = 7667346876) IMM GRAN x10^3 (test <0.03 0.00-0.06 code = 7115150514) LYMPH x10^3 (test code 0.81 10*3/uL 1.32-3.29 L = 731-0) MONO x10^3 (test code 0.42 10*3/uL 0.33-0.92 = 742-7) EOS x10^3 (test code = <0.03 0.03-0.39 L 711-2) BASO x10^3 (test code <0.03 0.01-0.07 = 704-7) Lab Interpretation Abnormal (test code = 28529-9) [facility] CypressLactic Acid Whole [id number] 20:33:44 Test Item Value Reference Range Interpretation Comments LACTIC ACID (test code = 1.37 mmol/L 0.50-2.20 6024597601) Lab Interpretation (test code = Normal 38335-3) [facility]ressTROPONIN [id number] 06:39:31 Test Item Value Reference Interpretation Comments Range TROPONIN I (test 0.027 ng/mL See_Comment [Automated code = 3151370992) message] The system which generated this result [...] biotin. Lab Interpretation Normal (test code = 45058-7) [facility]ressN-TERMINAL [id number] 06:36:10 Test Item Value Reference Range Interpretation Comments NT-proBNP (test code 68 pg/mL See_Comment [Autom ated = 9995265952) message] The system which generated this result transmitted reference range : <=125. The reference range was not used to interpret this result as normal/abnormal . KIM (test code = KIM) Biotin has been reported to cause a negative bias, interpret results relative to patient's use of biotin. Lab Interpretation Normal (test code = 02309-9) [facility] WITH [id number] 06:30:54 Test Item Value Reference Range Interpretation Comments WBC (test code = See_Comment L [Automated 1990-2) message] The sy stem which generated this result transmitted reference range : 4.30 - 11.10 10*3/?L. The reference range was not used to interpret this result as normal/abnormal . RBC (test code = See_Comment L [Automated 979-8) message] The sy stem which generated this [...] RDW-SD (test code = 47.1 fL 39.0-49.9 62330-3) RDW-CV (test code = 13.9 % 12.0-15.5 788-0) PLT (test code = See_Comment L [Automated 777-3) message] The sy stem which generated this result transmitted reference range : 166 - 358 10*3/ ?L. The reference r luca was not used to interpret this result as normal/abnormal . MPV (test code = 10.2 fL 9.5-12.9 90846-9) NRBC/100 WBC (test See_Comment [Automat ed code = 3640870544) message] The system which generated this result transmitted reference range : 0.0 - 10.0 /100 WBCs. The refer ence range was not u sed to interpret th is result as normal/abnormal . NRBC x10^3 (test code <0.01 See_Comment [Auto mated = 9697388190) message] The s ystem which generated this result transmitted reference range : 10*3/?L. The reference range was not used to interpret this result as normal/abnormal . GRAN MAT (NEUT) % 62.6 % (test code = 770-8) IMM GRAN % (test code 0.00 % = 6462503620) LYMPH % (test code = 25.3 % 736-9) MONO % (test code = 9.5 % 5905-5) EOS % (test code = 2.2 % 713-8) BASO % (test code = 0.4 % 706-2) GRAN MAT x10^3(ANC) 1.71 10*3/uL 1.88-7.09 L (test code = 1679084973) IMM GRAN x10^3 (test <0.03 0.00-0.06 code = 7718425891) LYMPH x10^3 (test code 0.69 10*3/uL 1.32-3.29 L = 731-0) MONO x10^3 (test code 0.26 10*3/uL 0.33-0.92 L = 742-7) EOS x10^3 (test code = 0.06 10*3/uL 0.03-0.39 711-2) BASO x10^3 (test code <0.03 0.01-0.07 = 704-7) Lab Interpretation Abnormal (test code = 30763-6) [facility]. METABOLIC PANEL (17650)2021-05-22 06:27:49 Test Item Value Reference Range Interpretation Comments NA (test code = 138 mmol/L 135-145 2993257382) K (test code = 4.9 mmol/L 3.5-5.0 8852961078) CL (test code = 105 mmol/L 98-108 7048467970) CO2 TOTAL (test code = 24 mmol/L 23-31 6799709159) AGAP (test code = 2-16 0805080503) BUN (test code = 6 mg/dL 7-23 L 7855051778) GLUCOSE (test code = 128 mg/dL 70-110 H 0721282382) CREATININE (test code = 0.54 mg/dL 0.50-1.04 4890912496) TOTAL BILI (test code = 1.3 mg/dL 0.1-1.1 H 6813194222) CALCIUM (test code = 8.4 mg/dL 8.6-10.6 L 4034023692) T PROTEIN (test code = 8.3 g/dL 6.3-8.2 H 7748210122) ALBUMIN (test code = 4.4 g/dL 3.5-5.0 8151219328) ALK PHOS (test code = 650 U/L 34-122 H 7990067612) ALTv (test code = 59 U/L 5-35 H 1742-6) AST(SGOT) (test code = 105 U/L 13-40 H 8854936325) eGFR (test code = mL/min/1.73m2 5501941239) KIM (test code = KIM) Association of [...] tests). Lab Interpretation Abnormal (test code = 68732-8) [facility] MOLECULAR [id number] 15:37:16 Test Item Value Reference Range Interpretation Comments POCT Molecular FluA (test code = Negative Negative 71826-8) POCT Molecular FluB (test code = Negative Negative 09047-2) Lab Interpretation (test code = Normal 67137-6) [facility] MOLECULAR [id number] 15:30:18 Test Item Value Reference Range Interpretation Comments POCT Molecular Strep (test code = Negative Negative 53856-3) Lab Interpretation (test code = Normal 74481-4) [facility]TROP[facility] [id number] 21:11:35 Test Item Value Reference Interpretation Comments Range TROPONIN I (test 0.002 ng/mL See_Comment [Automated code = 2246610665) message] The system which generated this result [...] biotin. Lab Interpretation Normal (test code = 72839-1) [facility]. METABOLIC PANEL (94999)2021-04-15 20:54:19 Test Item Value Reference Range Interpretation Comments NA (test code = 137 mmol/L 135-145 5428944355) K (test code = 3.8 mmol/L 3.5-5.0 9038400073) CL (test code = 103 mmol/L 98-108 1201563096) CO2 TOTAL (test code = 26 mmol/L 23-31 8254854206) AGAP (test code = 2-16 3491729482) BUN (test code = 12 mg/dL 7-23 9138432396) GLUCOSE (test code = 111 mg/dL 70-110 H 0972857383) CREATININE (test code = 0.61 mg/dL 0.50-1.04 1179058897) TOTAL BILI (test code = 1.2 mg/dL 0.1-1.1 H 1241991658) CALCIUM (test code = 8.9 mg/dL 8.6-10.6 7542960820) T PROTEIN (test code = 8.1 g/dL 6.3-8.2 3137320212) ALBUMIN (test code = 4.3 g/dL 3.5-5.0 8641836855) ALK PHOS (test code = 693 U/L 34-122 H 9601195379) ALTv (test code = 93 U/L 5-35 H 1742-6) AST(SGOT) (test code = 108 U/L 13-40 H 9290379791) eGFR (test code = mL/min/1.73m2 1858194979) KIM (test code = KIM) Association of [...] tests). Lab Interpretation Abnormal (test code = 50139-1) [facility] 20:53:54 Test Item Value Reference Range Interpretation Comments LIPASE (test code = 0454224899) 59 U/L 0-220 Lab Interpretation (test code = Normal 92998-7) [facility] WITH [id number] 20:33:32 Test Item Value Reference Range Interpretation Comments WBC (test code = See_Comment [Automated 8490-2) message] The sy stem which generated this result transmitted reference range : 4.30 - 11.10 10*3/?L. The reference range was not used to interpret this result as normal/abnormal . RBC (test code = See_Comment L [Automated 939-8) message] The sy stem which generated this [...] RDW-SD (test code = 45.8 fL 39.0-49.9 23699-9) RDW-CV (test code = 13.7 % 12.0-15.5 788-0) PLT (test code = See_Comment [Automated 777-3) message] The sy stem which generated this result transmitted reference range : 166 - 358 10*3/ ?L. The reference r luca was not used to interpret this result as normal/abnormal . MPV (test code = 9.5 fL 9.5-12.9 14664-6) NRBC/100 WBC (test See_Comment [Automat ed code = 0454109809) message] The system which generated this result transmitted reference range : 0.0 - 10.0 /100 WBCs. The refer ence range was not u sed to interpret th is result as normal/abnormal . NRBC x10^3 (test code <0.01 See_Comment [Auto mated = 4552196804) message] The s ystem which generated this result transmitted reference range : 10*3/?L. The reference range was not used to interpret this result as normal/abnormal . GRAN MAT (NEUT) % 70.5 % (test code = 770-8) IMM GRAN % (test code 0.70 % = 1111357052) LYMPH % (test code = 20.2 % 736-9) MONO % (test code = 6.7 % 5905-5) EOS % (test code = 1.4 % 713-8) BASO % (test code = 0.5 % 706-2) GRAN MAT x10^3(ANC) 3.07 10*3/uL 1.88-7.09 (test code = 1855242358) IMM GRAN x10^3 (test 0.03 10*3/uL 0.00-0.06 code = 3564232764) LYMPH x10^3 (test code 0.88 10*3/uL 1.32-3.29 L = 731-0) MONO x10^3 (test code 0.29 10*3/uL 0.33-0.92 L = 742-7) EOS x10^3 (test code = 0.06 10*3/uL 0.03-0.39 711-2) BASO x10^3 (test code <0.03 0.01-0.07 = 704-7) Lab Interpretation Abnormal (test code = 51790-2) [facility] [id number] 01:49:11 Test Item Value Reference Interpretation Comments Range TROPONIN I (test 0.002 ng/mL See_Comment [Automated code = 9856853161) message] The system which generated this result [...] biotin. Lab Interpretation Normal (test code = 49850-8) [facility] [id number] 01:46:10 Test Item Value Reference Range Interpretation Comments NT-proBNP (test code 56 pg/mL See_Comment [Autom ated = 7662541486) message] The system which generated this result transmitted reference range : <=125. The reference range was not used to interpret this result as normal/abnormal . KIM (test code = KIM) Biotin has been reported to cause a negative bias, interpret results relative to patient's use of biotin. Lab Interpretation Normal (test code = 22602-8) [facility]. METABOLIC PANEL (58920)2021-03-26 01:37:29 Test Item Value Reference Range Interpretation Comments NA (test code = 134 mmol/L 135-145 L 9039154674) K (test code = 4.6 mmol/L 3.5-5.0 3264214641) CL (test code = 103 mmol/L 98-108 8685011069) CO2 TOTAL (test code = 21 mmol/L 23-31 L 9819587218) AGAP (test code = 2-16 2322665901) BUN (test code = 21 mg/dL 7-23 2316539969) GLUCOSE (test code = 98 mg/dL 70-110 7695206642) CREATININE (test code = 0.89 mg/dL 0.50-1.04 7944819396) TOTAL BILI (test code = 1.0 mg/dL 0.1-1.7 3987637513) CALCIUM (test code = 9.6 mg/dL 8.6-10.6 6559536881) T PROTEIN (test code = 8.0 g/dL 6.3-8.2 4262916849) ALBUMIN (test code = 4.5 g/dL 3.5-5.0 0433075129) ALK PHOS (test code = 818 U/L 34-122 H 2676681443) ALTv (test code = 201 U/L 5-35 H 1742-6) AST(SGOT) (test code = 174 U/L 13-40 H 4876342974) eGFR (test code = mL/min/1.73m2 3262588893) KIM (test code = KIM) Association of [...] tests). Lab Interpretation Abnormal (test code = 91065-5) [facility] 01:37:09 Test Item Value Reference Range Interpretation Comments LIPASE (test code = 3586124071) 176 U/L 0-220 Lab Interpretation (test code = Normal 60283-2) [facility] WITH [id number] 01:34:08 Test Item Value Reference Range Interpretation Comments WBC (test code = See_Comment [Automated 6690-2) message] The sy stem which generated this result transmitted reference range : 4.30 - 11.10 10*3/?L. The reference range was not used to interpret this result as normal/abnormal . RBC (test code = See_Comment L [Automated 309-8) message] The sy stem which generated this [...] RDW-SD (test code = 43.3 fL 39.0-49.9 51812-8) RDW-CV (test code = 13.0 % 12.0-15.5 788-0) PLT (test code = See_Comment [Automated 777-3) message] The sy stem which generated this result transmitted reference range : 166 - 358 10*3/ ?L. The reference r luca was not used to interpret this result as normal/abnormal . MPV (test code = 10.0 fL 9.5-12.9 67786-8) NRBC/100 WBC (test See_Comment [Automat ed code = 9239200003) message] The system which generated this result transmitted reference range : 0.0 - 10.0 /100 WBCs. The refer ence range was not u sed to interpret th is result as normal/abnormal . NRBC x10^3 (test code <0.01 See_Comment [Auto mated = 7911492330) message] The s ystem which generated this result transmitted reference range : 10*3/?L. The reference range was not used to interpret this result as normal/abnormal . GRAN MAT (NEUT) % 71.1 % (test code = 770-8) IMM GRAN % (test code 0.50 % = 3607183787) LYMPH % (test code = 18.8 % 736-9) MONO % (test code = 7.0 % 5905-5) EOS % (test code = 2.3 % 713-8) BASO % (test code = 0.3 % 706-2) GRAN MAT x10^3(ANC) 4.38 10*3/uL 1.88-7.09 (test code = 2975751138) IMM GRAN x10^3 (test 0.03 10*3/uL 0.00-0.06 code = 4971150563) LYMPH x10^3 (test code 1.16 10*3/uL 1.32-3.29 L = 731-0) MONO x10^3 (test code 0.43 10*3/uL 0.33-0.92 = 742-7) EOS x10^3 (test code = 0.14 10*3/uL 0.03-0.39 711-2) BASO x10^3 (test code <0.03 0.01-0.07 = 704-7) Lab Interpretation Abnormal (test code = 23619-9) [facility]. METABOLIC PANEL (09635)2021-03-21 00:26:35 Test Item Value Reference Range Interpretation Comments NA (test code = 135 mmol/L 135-145 [id number]) K (test code = 4.6 mmol/L 3.5-5.0 8091023933) CL (test code = 104 mmol/L 98-108 9091778976) CO2 TOTAL (test code = 24 mmol/L 23-31 0961236619) AGAP (test code = 2-16 5579368610) BUN (test code = 17 mg/dL 7-23 4737847922) GLUCOSE (test code = 88 mg/dL 70-110 8414188166) CREATININE (test code = 0.70 mg/dL 0.50-1.04 8812317162) TOTAL BILI (test code = 1.0 mg/dL 0.1-1.7 9795947675) CALCIUM (test code = 8.8 mg/dL 8.6-10.6 7490465150) T PROTEIN (test code = 7.2 g/dL 6.3-8.2 6323376223) ALBUMIN (test code = 3.9 g/dL 3.5-5.0 6481329201) ALK PHOS (test code = 844 U/L 34-122 H 0893705466) ALTv (test code = 192 U/L 5-35 H 1742-6) AST(SGOT) (test code = 189 U/L 13-40 H 7724881444) eGFR (test code = mL/min/1.73m2 0877437636) KIM (test code = KIM) Association of [...] tests). Lab Interpretation Abnormal (test code = 58724-1) [facility] [id number] 23:26:58 Test Item Value Reference Interpretation Comments Range TROPONIN I (test 0.026 ng/mL See_Comment [Automated code = 4460287337) message] The system which generated this result [...] biotin. Lab Interpretation Normal (test code = 90084-4) [facility]2021[facility] 23:15:37 Test Item Value Reference Range Interpretation Comments LIPASE (test code = 8650583910) 214 U/L 0-220 Lab Interpretation (test code = Normal 12585-6[facility] [id number] 22:59:33 Test Item Value Reference Range Interpretation [...] RDW-SD (test code = 43.4 fL 39.0-49.9 64921-5) RDW-CV (test code = 13.0 % 12.0-15.5 788-0) PLT (test code = See_Comment [Automated 777-3) message] The sy stem which generated this result transmitted reference range : 166 - 358 10*3/ ?L. The reference r luca was not used to interpret this result as normal/abnormal . MPV (test code = 10.2 fL 9.5-12.9 68190-2) NRBC/100 WBC (test See_Comment [Automat ed code = 4807279505) message] The system which generated this result transmitted reference range : 0.0 - 10.0 /100 WBCs. The refer ence range was not u sed to interpret th is result as normal/abnormal . NRBC x10^3 (test code <0.01 See_Comment [Auto mated = 7888612255) message] The s ystem which generated this result transmitted reference range : 10*3/?L. The reference range was not used to interpret this result as normal/abnormal . GRAN MAT (NEUT) % 65.8 % (test code = 770-8) IMM GRAN % (test code 0.20 % = 4674622832) LYMPH % (test code = 22.8 % 736-9) MONO % (test code = 7.7 % 5905-5) EOS % (test code = 2.9 % 713-8) BASO % (test code = 0.6 % 706-2) GRAN MAT x10^3(ANC) 3.43 10*3/uL 1.88-7.09 (test code = 1012705393) IMM GRAN x10^3 (test <0.03 0.00-0.06 code = 7661056996) LYMPH x10^3 (test code 1.19 10*3/uL 1.32-3.29 L = 731-0) MONO x10^3 (test code 0.40 10*3/uL 0.33-0.92 = 742-7) EOS x10^3 (test code = 0.15 10*3/uL 0.03-0.39 711-2) BASO x10^3 (test code 0.03 10*3/uL 0.01-0.07 = 704-7) Lab Interpretation Abnormal (test code = 13213-2) [facility] METABOLIC PANEL (33603)2021-02-12 20:12:57 Test Item Value Reference Range Interpretation Comments NA (test code = 137 mmol/L 135-145 0147048032) K (test code = 4.7 mmol/L 3.5-5.0 9233045765) CL (test code = 106 mmol/L 98-108 5537727251) CO2 TOTAL (test code = 23 mmol/L - 5697446124) AGAP (test code = 2-16 7103661001) BUN (test code = 16 mg/dL 7-23 2827786614) GLUCOSE (test code = 116 mg/dL 70-110 H 8427794198) CREATININE (test code = 0.65 mg/dL 0.50-1.04 9951740206) TOTAL BILI (test code = 1.6 mg/dL 0.1-1.1 H 2848607528) CALCIUM (test code = 9.6 mg/dL 8.6-10.6 8354684265) T PROTEIN (test code = 8.3 g/dL 6.3-8.2 H 5173322272) ALBUMIN (test code = 4.5 g/dL 3.5-5.0 2059464180) ALK PHOS (test code = 650 U/L 34-122 H 4023962335) ALTv (test code = 146 U/L 5-35 H 1742-6) AST(SGOT) (test code = 174 U/L 13-40 H 3621806865) eGFR (test code = mL/min/1.73m2 9983871332) KIM (test code = KIM) Association of [...] tests). Lab Interpretation Abnormal (test code = 14250-1) [facility]21-[facility] 20:12:12 Test Item Value Reference Range Interpretation Comments LIPASE (test code = 2503401104) 86 U/L 0-220 Lab Interpretation (test code = Normal 83434-8) [facility] WITH [id number] 20:02:15 Test Item Value Reference Range Interpretation [...] RDW-SD (test code = 46.4 fL 39.0-49.9 81886-2) RDW-CV (test code = 13.8 % 12.0-15.5 788-0) PLT (test code = See_Comment [Automated 777-3) message] The sy stem which generated this result transmitted reference range : 166 - 358 10*3/ ?L. The reference r luca was not used to interpret this result as normal/abnormal . MPV (test code = 9.8 fL 9.5-12.9 60940-5) NRBC/100 WBC (test See_Comment [Automat ed code = 8867307498) message] The system which generated this result transmitted reference range : 0.0 - 10.0 /100 WBCs. The refer ence range was not u sed to interpret th is result as normal/abnormal . NRBC x10^3 (test code <0.01 See_Comment [Auto mated = 9807250469) message] The s ystem which generated this result transmitted reference range : 10*3/?L. The reference range was not used to interpret this result as normal/abnormal . GRAN MAT (NEUT) % 69.4 % (test code = 770-8) IMM GRAN % (test code 0.40 % = 5750829916) LYMPH % (test code = 20.4 % 736-9) MONO % (test code = 7.2 % 5905-5) EOS % (test code = 2.0 % 713-8) BASO % (test code = 0.6 % 706-2) GRAN MAT x10^3(ANC) 3.77 10*3/uL 1.88-7.09 (test code = 8628184309) IMM GRAN x10^3 (test <0.03 0.00-0.06 code = 7778384164) LYMPH x10^3 (test code 1.11 10*3/uL 1.32-3.29 L = 731-0) MONO x10^3 (test code 0.39 10*3/uL 0.33-0.92 = 742-7) EOS x10^3 (test code = 0.11 10*3/uL 0.03-0.39 711-2) BASO x10^3 (test code 0.03 10*3/uL 0.01-0.07 = 704-7) Lab Interpretation Abnormal (test code = 43456-3) [facility] MET[facility]OLIC PANEL (77969)2021-01-18 04:36:17 Test Item Value Reference Range Interpretation Comments NA (test code = 137 mmol/L 135-145 1821476462) K (test code = 4.2 mmol/L 3.5-5.0 1174432101) CL (test code = 103 mmol/L 98-108 6247584966) CO2 TOTAL (test code = 27 mmol/L 23-31 1036565725) AGAP (test code = 2-16 7462615036) BUN (test code = 13 mg/dL 7-23 1259204344) GLUCOSE (test code = 100 mg/dL 70-110 7677529077) CREATININE (test code = 0.73 mg/dL 0.50-1.04 4360796909) TOTAL BILI (test code = 1.4 mg/dL 0.1-1.1 H 1355826975) CALCIUM (test code = 9.1 mg/dL 8.6-10.6 1609225475) T PROTEIN (test code = 7.2 g/dL 6.3-8.2 9821875566) ALBUMIN (test code = 4.0 g/dL 3.5-5.0 9174421550) ALK PHOS (test code = 585 U/L 34-122 H 9500608981) ALTv (test code = 78 U/L 5-35 H 1742-6) AST(SGOT) (test code = 73 U/L 13-40 H 3945595125) eGFR (test code = mL/min/1.73m2 3112229501) KIM (test code = KIM) Association of [...] tests). Lab Interpretation Abnormal (test code = 74623-5) [facility]20[facility] 04:02:39 Test Item Value Reference Range Interpretation Comments LIPASE (test code = 4340894589) 114 U/L 0-220 Lab Interpretation (test code = Normal 46545-8) [facility] WITH [id number] 03:49:11 Test Item Value Reference Range Interpretation [...] (test code = 50.6 fL 39.0-49.9 H 86515-9) RDW-CV (test code = 14.8 % 12.0-15.5 788-0) PLT (test code = See_Comment [Automated 777-3) message] The sy stem which generated this result transmitted reference range : 166 - 358 10*3/ ?L. The reference r luca was not used to interpret this result as normal/abnormal . MPV (test code = 10.7 fL 9.5-12.9 92544-9) NRBC/100 WBC (test See_Comment [Automat ed code = 9567347957) message] The system which generated this result transmitted reference range : 0.0 - 10.0 /100 WBCs. The refer ence range was not u sed to interpret th is result as normal/abnormal . NRBC x10^3 (test code <0.01 See_Comment [Auto mated = 3052024019) message] The s ystem which generated this result transmitted reference range : 10*3/?L. The reference range was not used to interpret this result as normal/abnormal . GRAN MAT (NEUT) % 66.1 % (test code = 770-8) IMM GRAN % (test code 0.20 % = 8973784540) LYMPH % (test code = 23.5 % 736-9) MONO % (test code = 8.1 % 5905-5) EOS % (test code = 1.7 % 713-8) BASO % (test code = 0.4 % 706-2) GRAN MAT x10^3(ANC) 3.49 10*3/uL 1.88-7.09 (test code = 4503557339) IMM GRAN x10^3 (test <0.03 0.00-0.06 code = 9357541888) LYMPH x10^3 (test code 1.24 10*3/uL 1.32-3.29 L = 731-0) MONO x10^3 (test code 0.43 10*3/uL 0.33-0.92 = 742-7) EOS x10^3 (test code = 0.09 10*3/uL 0.03-0.39 711-2) BASO x10^3 (test code <0.03 0.01-0.07 = 704-7) Lab Interpretation Abnormal (test code = 50005-2) [facility]ressHEPAT[facility] FUNCTION PANEL (17765) (ALB,T.PRO,BILI T,BU/BC,ALT,AST,ALK PHOS)2020-12-30 18:48:24 Test Item Value Reference Range Interpretation Comments TOTAL BILI (test code = 3761677120) 2.4 mg/dL 0.1-1.1 H BILI UNCON (test code = 3260250410) 0.5 mg/dL 0.1-1.1 BILI CONJ (test code = 1356410180) 0.0 mg/dL 0.0-0.3 T PROTEIN (test code = 1607198313) 9.8 g/dL 6.3-8.2 H ALBUMIN (test code = 2170122537) 4.9 g/dL 3.5-5.0 ALK PHOS (test code = 1543746319) 1181 U/L 34-122 H ALTv (test code = 1742-6) 271 U/L 5-35 H AST(SGOT) (test code = 8967518032) 192 U/L 13-40 H Lab Interpretation (test code = Abnormal 64510-5) [facility] FUN[facility] PAN[facility] (36967) (ALB,T.PRO,BILI T,BU/BC,ALT,AST,ALK PHOS)2020-12-30 18:48:24 Test Item Value Reference Range Interpretation Comments TOTAL BILI (test code = 9608015473) 2.4 mg/dL 0.1-1.1 H BILI UNCON (test code = 5028238767) 0.5 mg/dL 0.1-1.1 BILI CONJ (test code = 2810072853) 0.0 mg/dL 0.0-0.3 T PROTEIN (test code = 9910068141) 9.8 g/dL 6.3-8.2 H ALBUMIN (test code = 5181101031) 4.9 g/dL 3.5-5.0 ALK PHOS (test code = 9001673229) 1181 U/L 34-122 H ALTv (test code = 1742-6) 271 U/L 5-35 H AST(SGOT) (test code = 9578149659) 192 U/L 13-40 H Lab Interpretation (test code = Abnormal 58379-7) [facility]IC METABOLIC PANEL (NA, K, CL, CO2, GLUCOSE, BUN, CREATININE, CA)2020-12-30 18:48:02 Test Item Value Reference Range Interpretation Comments NA (test code = 138 mmol/L 135-145 9106458801) K (test code = 4.7 mmol/L 3.5-5.0 3454586640) CL (test code = 106 mmol/L 98-108 3573341460) CO2 TOTAL (test code = 20 mmol/L 23-31 L 8738993771) AGAP (test code = 2-16 2194227400) BUN (test code = 19 mg/dL 7-23 5187524853) GLUCOSE (test code = 134 mg/dL 70-110 H 5602018167) CREATININE (test code = 0.62 mg/dL 0.50-1.04 6231270291) CALCIUM (test code = 10.1 mg/dL 8.6-10.6 4695197231) eGFR (test code = mL/min/1.73m2 2442663729) KIM (test code = KIM) Association of [...] tests). Lab Interpretation Abnormal (test code = 18831-4) [facility]2021-[facility]-17 18:48:02 Test Item Value Reference Range Interpretation Comments LIPASE (test code = 8757183366) 292 U/L 0-220 H Lab Interpretation (test code = Abnormal 57067-2) [facility] METABOLIC PANEL (NA, K, CL, CO2, GLUCOSE, BUN, CREATININE, CA)2020-12-30 18:48:02 Test Item Value Reference Range Interpretation Comments NA (test code = 138 mmol/L 135-145 1257652194) K (test code = 4.7 mmol/L 3.5-5.0 1820368970) CL (test code = 106 mmol/L 98-108 6341671112) CO2 TOTAL (test code = 20 mmol/L 23-31 L 8129931503) AGAP (test code = 2-16 8015542597) BUN (test code = 19 mg/dL 7-23 0569857014) GLUCOSE (test code = 134 mg/dL 70-110 H 3396140708) CREATININE (test code = 0.62 mg/dL 0.50-1.04 6212979195) CALCIUM (test code = 10.1 mg/dL 8.6-10.6 0851793900) eGFR (test code = mL/min/1.73m2 5685792127) KIM (test code = KIM) Association of [...] tests). Lab Interpretation Abnormal (test code = 71409-2) [facility]2021-[facility]-17 18:48:02 Test Item Value Reference Range Interpretation Comments LIPASE (test code = 4161108604) 292 U/L 0-220 H Lab Interpretation (test code = Abnormal 10074-4) [facility] WITH [id number] 18:39:23 Test Item Value Reference Range Interpretation [...] RDW-SD (test code = 48.4 fL 39.0-49.9 97163-9) RDW-CV (test code = 14.6 % 12.0-15.5 788-0) PLT (test code = See_Comment [Automated 777-3) message] The sy stem which generated this result transmitted reference range : 166 - 358 10*3/ ?L. The reference r luca was not used to interpret this result as normal/abnormal . MPV (test code = 10.1 fL 9.5-12.9 75345-7) NRBC/100 WBC (test See_Comment [Automat ed code = 8320851525) message] The system which generated this result transmitted reference range : 0.0 - 10.0 /100 WBCs. The refer ence range was not u sed to interpret th is result as normal/abnormal . NRBC x10^3 (test code <0.01 See_Comment [Auto mated = 2049809636) message] The s ystem which generated this result transmitted reference range : 10*3/?L. The reference range was not used to interpret this result as normal/abnormal . GRAN MAT (NEUT) % 75.2 % (test code = 770-8) IMM GRAN % (test code 0.60 % = 0188673768) LYMPH % (test code = 17.0 % 736-9) MONO % (test code = 5.8 % 5905-5) EOS % (test code = 0.9 % 713-8) BASO % (test code = 0.5 % 706-2) GRAN MAT x10^3(ANC) 8.11 10*3/uL 1.88-7.09 H (test code = 2711916483) IMM GRAN x10^3 (test 0.06 10*3/uL 0.00-0.06 code = 8734434506) LYMPH x10^3 (test code 1.83 10*3/uL 1.32-3.29 = 731-0) MONO x10^3 (test code 0.62 10*3/uL 0.33-0.92 = 742-7) EOS x10^3 (test code = 0.10 10*3/uL 0.03-0.39 711-2) BASO x10^3 (test code 0.05 10*3/uL 0.01-0.07 = 704-7) Lab Interpretation Abnormal (test code = 84232-0) [facility] WITH [id number] 18:39:23 Test Item Value Reference Range Interpretation Comments WBC (test code = See_Comment [Automated 8121-2) message] The sy stem which generated this result transmitted reference range : 4.30 - 11.10 10*3/?L. The reference range was not used to interpret this result as normal/abnormal . RBC (test code = See_Comment [Automated 545-8) message] The sy stem which generated this [...] RDW-SD (test code = 48.4 fL 39.0-49.9 78755-7) RDW-CV (test code = 14.6 % 12.0-15.5 788-0) PLT (test code = See_Comment [Automated 777-3) message] The sy stem which generated this result transmitted reference range : 166 - 358 10*3/ ?L. The reference r luca was not used to interpret this result as normal/abnormal . MPV (test code = 10.1 fL 9.5-12.9 38432-4) NRBC/100 WBC (test See_Comment [Automat ed code = 0337044577) message] The system which generated this result transmitted reference range : 0.0 - 10.0 /100 WBCs. The refer ence range was not u sed to interpret th is result as normal/abnormal . NRBC x10^3 (test code <0.01 See_Comment [Auto mated = 2087049295) message] The s ystem which generated this result transmitted reference range : 10*3/?L. The reference range was not used to interpret this result as normal/abnormal . GRAN MAT (NEUT) % 75.2 % (test code = 770-8) IMM GRAN % (test code 0.60 % = 5231808517) LYMPH % (test code = 17.0 % 736-9) MONO % (test code = 5.8 % 5905-5) EOS % (test code = 0.9 % 713-8) BASO % (test code = 0.5 % 706-2) GRAN MAT x10^3(ANC) 8.11 10*3/uL 1.88-7.09 H (test code = 8252175494) IMM GRAN x10^3 (test 0.06 10*3/uL 0.00-0.06 code = 5928472185) LYMPH x10^3 (test code 1.83 10*3/uL 1.32-3.29 = 731-0) MONO x10^3 (test code 0.62 10*3/uL 0.33-0.92 = 742-7) EOS x10^3 (test code = 0.10 10*3/uL 0.03-0.39 711-2) BASO x10^3 (test code 0.05 10*3/uL 0.01-0.07 = 704-7) Lab Interpretation Abnormal (test code = 56489-5) [facility] PELVIS COMPLETE WITH [id number] 23:13:25Focal echogenicity in the left ovary measuring [...] Otherwise unremarkable pelvic ultrasound.RL: [id number] OF REPORT [facility] HospitalLactic Acid Whole [id number] 22:23:55 Test Item Value Reference Range Interpretation Comments LACTIC ACID (test code = 1.49 mmol/L 0.50-2.20 3192262817) Lab Interpretation (test code = Normal 39200-0) [facility] PEL[facility] W [id number] 22:20:59 1. ?No acute intra-abdominal abnormality. 2. ?Gastric wall thickening is nonspecific but can be seen with gastritis. 3. ?Postsurgical changes of cholecystectomy and appendectomy. Pneumobiliaversus nonradiopaque biliary stents are unchanged dating back to 2016. 4. ?Hepatic steatosis and splenomegaly. The 0.9 cm cystic hypodensity atthe uncinate process is slightly smaller from 03/26/2020. This wasevaluated by MR [facility] on 09/08/2020, with resultssuggestive of pseudocyst [...] by endplate sclerosis, vacuumphenomenon, and facet arthropathy. [facility] Inft User - 12/05/2020 5:22 [...] 03/26/2020. This wasevaluated by MR abdomen at [facility] on 09/08/2020, with resultssuggestive of pseudocyst versus side branch IPMN.PreliminaryReport Dictated by Resident: Chester Rivera, Dwight Akers MD., have reviewed this study and agree with the abovereport.[facility] [id number] 20:42:19 Test Item Value Reference Range Interpretation Comments APPEARANCE (test code = Clear Clear 1008610129) COLOR (test code = Lisa Yellow A 5000494328) PH (test code = 4.8-8.0 5378634451) SP GRAVITY (test code = 1.003-1.030 7501412964) GLU U QUAL (test code = Normal Normal 6017609624) BLOOD (test code = Negative Negative 7530704580) KETONES (test code = Negative Negative 8391997867) PROTEIN (test code = 30 mg/dL Negative A 2887-8) UROBILIN (test code = 4.0 mg/dL Normal A 4617331204) BILIRUBIN (test code = 2 mg/dL Negative A 7828704883) NITRITE (test code = Negative Negative 4524920976) LEUK NICHOLE (test code = Negative Negative 7531755824) RBC/HPF (test code = See_Comment [Autom ated message] 8359538353) The system [employer] generated this result transmit gulshan reference range : 0 - 3 HPF. The refe rence range was not u sed to interpret th is result as normal/abnormal . WBC/HPF (test code = See_Comment [Autom ated message] 8179786476) The system [employer] generated this result transmit gulshan reference range : 0 - 5 HPF. The refe rence range was not u sed to interpret th is result as normal/abnormal . BACTERIA (test code = Few Negative A 7797822493) MUCOUS (test code = Slight Negative LPF A 4697223177) SQ EPITH (test code = HPF 4889489046) HYAL CAST (test code = See_Comment [Aut omated message] 1758593421) The system [employer] generated this result transmit gulshan reference range : <=2 LPF. The refere nce range was not u sed to interpret th is result as normal/abnormal . Lab Interpretation (test Abnormal code = 02117-1) [facility] MET[facility]OLIC PAN[facility] (43506)2020-12-05 20:38:13 Test Item Value Reference Range Interpretation Comments NA (test code = 139 mmol/L 135-145 0101567629) K (test code = 3.6 mmol/L 3.5-5.0 8496378166) CL (test code = 106 mmol/L 98-108 2422814590) CO2 TOTAL (test code = 21 mmol/L 23-31 L 2685048620) AGAP (test code = 2-16 7886144033) BUN (test code = 12 mg/dL 7-23 7993749813) GLUCOSE (test code = 91 mg/dL 70-110 6047851315) CREATININE (test code = 0.53 mg/dL 0.50-1.04 3160335802) TOTAL BILI (test code = 3.6 mg/dL 0.1-1.1 H 4966877855) CALCIUM (test code = 9.8 mg/dL 8.6-10.6 7369919558) T PROTEIN (test code = 9.1 g/dL 6.3-8.2 H 9511333681) ALBUMIN (test code = 4.6 g/dL 3.5-5.0 4775278671) ALK PHOS (test code = 1229 U/L 34-122 H 7254837005) ALTv (test code = 311 U/L 5-35 H 1742-6) AST(SGOT) (test code = 280 U/L 13-40 H 5736263343) eGFR (test code = mL/min/1.73m2 6472427207) KIM (test code = KIM) Association of [...] tests). Lab Interpretation Abnormal (test code = 92472-2) [facility]2021-[facility]-23 20:37:32 Test Item Value Reference Range Interpretation Comments LIPASE (test code = 8414575127) 168 U/L 0-220 Lab Interpretation (test code = Normal 70573-4) [facility] WITH [id number] 20:25:55 Test Item Value Reference Range Interpretation Comments WBC (test code = See_Comment [Automated 3890-2) message] The sy stem which generated this result transmitted reference range : 4.30 - 11.10 10*3/?L. The reference range was not used to interpret this result as normal/abnormal . RBC (test code = See_Comment L [Automated 279-8) message] The sy stem which generated this [...] RDW-SD (test code = 49.3 fL 39.0-49.9 61801-1) RDW-CV (test code = 15.0 % 12.0-15.5 788-0) PLT (test code = See_Comment [Automated 777-3) message] The sy stem which generated this result transmitted reference range : 166 - 358 10*3/ ?L. The reference r luca was not used to interpret this result as normal/abnormal . MPV (test code = 10.2 fL 9.5-12.9 43756-3) NRBC/100 WBC (test See_Comment [Automat ed code = 9126798739) message] The system which generated this result transmitted reference range : 0.0 - 10.0 /100 WBCs. The refer ence range was not u sed to interpret th is result as normal/abnormal . NRBC x10^3 (test code <0.01 See_Comment [Auto mated = 5895417019) message] The s ystem which generated this result transmitted reference range : 10*3/?L. The reference range was not used to interpret this result as normal/abnormal . GRAN MAT (NEUT) % 68.6 % (test code = 770-8) IMM GRAN % (test code 0.40 % = 3561446322) LYMPH % (test code = 21.2 % 736-9) MONO % (test code = 7.8 % 5905-5) EOS % (test code = 1.6 % 713-8) BASO % (test code = 0.4 % 706-2) GRAN MAT x10^3(ANC) 3.50 10*3/uL 1.88-7.09 (test code = 2717704409) IMM GRAN x10^3 (test <0.03 0.00-0.06 code = 3963749460) LYMPH x10^3 (test code 1.08 10*3/uL 1.32-3.29 L = 731-0) MONO x10^3 (test code 0.40 10*3/uL 0.33-0.92 = 742-7) EOS x10^3 (test code = 0.08 10*3/uL 0.03-0.39 711-2) BASO x10^3 (test code <0.03 0.01-0.07 = 704-7) Lab Interpretation Abnormal (test code = 27723-3) [facility] CypressLIPID PANEL (50702)(TOTAL CHOLESTEROL, TRIGLYCERIDES, HDL)2020-10-12 16:46:34 Test Item Value Reference Range Interpretation Comments CHOL (test code = 307 mg/dL 120-200 H 9373921246) HDL (test code = 93 mg/dL >50 0572562567) HDLC RATIO (test code = See_Comment [Au tomated message] 9666361186) The system [employer] generated this result transmit gulshan reference range : <=4.5. The refe rence range was not u sed to interpret th is result as normal/abnormal . TRIG (test code = 131 mg/dL 30-170 9997607421) LDL CHOL (test code = 188 mg/dL See_Comment H [Auto mated message] 13116-2) The system [employer] generated this result transmit gulshan reference range : <=160. The refe rence range was not u sed to interpret th is result as normal/abnormal . VLDL (test code = 26 mg/dL 5-60 5291926599) Lab Interpretation (test Abnormal code = 17413-5) [facility] CypressMagnesium [id number] 09:02:26 Test Item Value Reference Range Interpretation Comments MAGNESIUM (test code = 0205456279) 1.9 mg/dL 1.7-2.4 Lab Interpretation (test code = Normal 62539-7) [facility]ressHEPATIC FUNCTION PANEL (70811) (ALB,T.PRO,BILI T,BU/BC,ALT,AST,ALK PHOS)2020-10-12 09:02:26 Test Item Value Reference Range Interpretation Comments TOTAL BILI (test code = 0690537933) 1.0 mg/dL 0.1-1.1 BILI UNCON (test code = 1559790022) 0.5 mg/dL 0.1-1.1 BILI CONJ (test code = 4399926556) 0.0 mg/dL 0.0-0.3 T PROTEIN (test code = 0351429380) 7.8 g/dL 6.3-8.2 ALBUMIN (test code = 3145614431) 4.3 g/dL 3.5-5.0 ALK PHOS (test code = 5948702260) 608 U/L 34-122 H ALTv (test code = 1742-6) 156 U/L 5-35 H AST(SGOT) (test code = 3439869718) 136 U/L 13-40 H Lab Interpretation (test code = Abnormal 65295-0) [facility] / [id number] 08:48:50 Test Item Value Reference Range Interpretation [...] tions. Lab Interpretation (test Normal code = 10340-0) [facility]21[facility] 08:48:50 Test Item Value Reference Range Interpretation Comments APTT Patient (test code See_Comment H [Au tomated message] = 3173-2) The system studentSNic h generated this result transmitted ref erence range: 26 - 36 Seconds. The reference range was not used to int erpret this result as normal/abnormal . Lab Interpretation (test Abnormal code = 40181-4) [facility] with [id number] 08:31:22 Test Item Value Reference Range Interpretation Comments WBC (test code = See_Comment [Automated 2190-2) message] The sy stem which generated this result transmitted reference range : 4.30 - 11.10 10*3/?L. The reference range was not used to interpret this result as normal/abnormal . RBC (test code = See_Comment L [Automated 509-8) message] The sy stem which generated this [...] RDW-SD (test code = 41.3 fL 39.0-49.9 62932-2) RDW-CV (test code = 12.6 % 12.0-15.5 788-0) PLT (test code = See_Comment [Automated 777-3) message] The sy stem which generated this result transmitted reference range : 166 - 358 10*3/ ?L. The reference r luca was not used to interpret this result as normal/abnormal . MPV (test code = 9.1 fL 9.5-12.9 L 80456-3) NRBC/100 WBC (test See_Comment [Automat ed code = 3693411291) message] The system which generated this result transmitted reference range : 0.0 - 10.0 /100 WBCs. The refer ence range was not u sed to interpret th is result as normal/abnormal . NRBC x10^3 (test code <0.01 See_Comment [Auto mated = 3033669134) message] The s ystem which generated this result transmitted reference range : 10*3/?L. The reference range was not used to interpret this result as normal/abnormal . GRAN MAT (NEUT) % 62.6 % (test code = 770-8) IMM GRAN % (test code 0.40 % = 2921632628) LYMPH % (test code = 26.8 % 736-9) MONO % (test code = 7.7 % 5905-5) EOS % (test code = 2.1 % 713-8) BASO % (test code = 0.4 % 706-2) GRAN MAT x10^3(ANC) 3.32 10*3/uL 1.88-7.09 (test code = 7086301144) IMM GRAN x10^3 (test <0.03 0.00-0.06 code = 5673071374) LYMPH x10^3 (test code 1.42 10*3/uL 1.32-3.29 = 731-0) MONO x10^3 (test code 0.41 10*3/uL 0.33-0.92 = 742-7) EOS x10^3 (test code = 0.11 10*3/uL 0.03-0.39 711-2) BASO x10^3 (test code <0.03 0.01-0.07 = 704-7) Lab Interpretation Abnormal (test code = 55677-7) [facility] METABOLIC PANEL (NA, K, CL, CO2, GLUCOSE, BUN, CREATININE, CA)2020-10-12 04:16:15 Test Item Value Reference Range Interpretation Comments NA (test code = 138 mmol/L 135-145 1596960750) K (test code = 4.1 mmol/L 3.5-5.0 6996289504) CL (test code = 104 mmol/L 98-108 4425162742) CO2 TOTAL (test code 23 mmol/L 23-31 = 2685346544) AGAP (test code = 2-16 5015947576) BUN (test code = 16 mg/dL 7-23 3931324027) GLUCOSE (test code = 83 mg/dL 70-110 5646998454) CREATININE (test code 0.63 mg/dL 0.50-1.04 = 4470781636) CALCIUM (test code = 9.4 mg/dL 8.6-10.6 8401774843) eGFR (test code = mL/min/1.73m2 5517178452) KIM (test code = KIM) Association of [...] abnormalities in imaging tests). [facility]75[facility] (ALB,T.PRO,BILI T,BU/BC,ALT,AST,ALK PHOS)2020-10-12 04:16:15 Test Item Value Reference Range Interpretation Comments TOTAL BILI (test code = 5552013412) 1.1 mg/dL 0.1-1.1 BILI UNCON (test code = 9030495129) 0.5 mg/dL 0.1-1.1 BILI CONJ (test code = 6758851529) 0.0 mg/dL 0.0-0.3 T PROTEIN (test code = 5567263247) 8.5 g/dL 6.3-8.2 H ALBUMIN (test code = 0848765476) 4.6 g/dL 3.5-5.0 ALK PHOS (test code = 2401089259) 679 U/L 34-122 H ALTv (test code = 1742-6) 168 U/L 5-35 H AST(SGOT) (test code = 3667041457) 143 U/L 13-40 H Lab Interpretation (test code = Abnormal 81182-5) [facility]OVID[facility] (ID NOW RAPID TESTING)2020-10-11 16:36:41 Test Item Value Reference Range Interpretation Comments SARS-CoV-2 Rapid ID NOW Not Detected Not Detected (test code = 66388-4) KIM (test code = KIM) ID NOW COVID-19 Assay is an isothermal nucleic acid amplification test intended for the qualitative detection of nucleic acid from SARS-CoV-2 viral RNA in nasopharyngeal (MECHANIC RECOVERY) specimens. It is used under Emergency Use [...] indicated. Lab Interpretation Normal (test code = 34129-9) [facility] GALL [id number] 15:28:53HISTORY: Rule out biliary duct stenosis. COMPARISON: [...] ductstenosis cannot be adequately evaluated by this study.[facility] Results Inft User - 10/11/2020 10:30 [...] adequately evaluated by this study.[facility] Troponin [id number] 14:35:05 Test Item Value Reference Interpretation Comments Range TROPONIN I (test 0.004 ng/mL See_Comment [Automated code = 6156744347) message] The system which generated this result [...] biotin. Lab Interpretation Normal (test code = 74241-0) [facility] Function [facility] (ALB, T.PRO, BILI T, BU/BC, ALT, AST, ALK PHOS)2020-10-11 14:24:25 Test Item Value Reference Range Interpretation Comments TOTAL BILI (test code = 3981069177) 0.9 mg/dL 0.1-1.1 BILI UNCON (test code = 1578069964) 0.3 mg/dL 0.1-1.1 BILI CONJ (test code = 5278695983) 0.0 mg/dL 0.0-0.3 T PROTEIN (test code = 2751179991) 9.0 g/dL 6.3-8.2 H ALBUMIN (test code = 7237298145) 4.8 g/dL 3.5-5.0 ALK PHOS (test code = 7042508647) 752 U/L 34-122 H ALTv (test code = 1742-6) 164 U/L 5-35 H AST(SGOT) (test code = 0636176661) 166 U/L 13-40 H Lab Interpretation (test code = Abnormal 56205-8) [facility] Metabolic Panel (NA, K, CL, CO2, GLUCOSE, BUN, CREATININE, CA)2020-10-11 14:24:05 Test Item Value Reference Range Interpretation Comments NA (test code = 139 mmol/L 135-145 2803202323) K (test code = 4.3 mmol/L 3.5-5.0 1210525381) CL (test code = 106 mmol/L 98-108 6667736953) CO2 TOTAL (test code = 22 mmol/L 23-31 L 4449459411) AGAP (test code = 2-16 4688664874) BUN (test code = 15 mg/dL 7-23 5984465805) GLUCOSE (test code = 106 mg/dL 70-110 3236620452) CREATININE (test code = 0.63 mg/dL 0.50-1.04 6237282562) CALCIUM (test code = 10.0 mg/dL 8.6-10.6 7381687815) eGFR (test code = mL/min/1.73m2 3790764715) KIM (test code = KIM) Association of [...] tests). Lab Interpretation Abnormal (test code = 96777-4) [facility]ressLipase [id number] 14:24:05 Test Item Value Reference Range Interpretation Comments LIPASE (test code = 4157663364) 169 U/L 0-220 Lab Interpretation (test code = Normal 51498-7) [facility] CypressUrinalysis2021-06-29 14:23:55 Test Item Value Reference Range Interpretation Comments APPEARANCE (test code = Hazy Clear A 0122906904) COLOR (test code = Yellow Yellow 3495182894) PH (test code = 4.8-8.0 2709339681) SP GRAVITY (test code = 1.003-1.030 3124196109) GLU U QUAL (test code = Normal Normal 7491530932) BLOOD (test code = Negative Negative 0177303185) KETONES (test code = Negative Negative 3189484608) PROTEIN (test code = Negative Negative 2887-8) UROBILIN (test code = Normal Normal 2634710420) BILIRUBIN (test code = Negative Negative 4662821376) NITRITE (test code = Negative Negative 4565395741) LEUK NICHOLE (test code = Negative Negative 6372486570) RBC/HPF (test code = See_Comment [Autom ated message] 1580461455) The system [employer] generated this result transmitted ref erence range: 0 - 3 HP F. The reference range was not used to int erpret this result as normal/abnormal . WBC/HPF (test code = See_Comment [Autom ated message] 2336641681) The system [employer] generated this result transmitted ref erence range: 0 - 5 HP F. The reference range was not used to int erpret this result as normal/abnormal . BACTERIA (test code = Few Negative A 9261187052) AMORPHOUS (test code = Rare Rare HPF 6634584811) SQ EPITH (test code = HPF 8474123913) HYAL CAST (test code = See_Comment H [Aut omated message] 9996520531) The system whic h generated this result transmitted ref erence range: <=2 LPF. The reference range was not used to int erpret this result as normal/abnormal . Lab Interpretation (test Abnormal code = 07796-0) [facility] with [id number] 14:14:01 Test Item Value Reference Range Interpretation Comments WBC (test code = See_Comment [Automated message] 6690-2) The system [employer] generated this result transmitted ref erence range: 4.30 - 1 1.10 10*3/?L. The re ference range was not u sed to interpret this result as normal/abnor mal. RBC (test code = See_Comment [Automated message] 789-8) The system [employer] generated this result transmitted ref erence range: [...] RDW-SD (test code 40.1 fL 39.0-49.9 = 29340-7) RDW-CV (test code 12.3 % 12.0-15.5 = 788-0) PLT (test code = See_Comment [Automated message] 777-3) The system [employer] generated this result transmitted ref erence range: 166 - 35 8 10*3/?L. The re ference range was not u sed to interpret this result as normal/abnor mal. MPV (test code = 9.7 fL 9.5-12.9 58850-4) NRBC/100 WBC (test See_Comment [Automat ed message] code = 5235572304) The [facility] which generated this result transmitted ref erence range: 0.0 - 10 .0 /100 WBCs. The refer ence range was not u sed to interpret this result as normal/abnor mal. NRBC x10^3 (test <0.01 See_Comment [Automated message] code = 2087728973) The syste m which generated this result transmitted ref erence range: 10*3/?L. The reference range was not used to interpr et this result as normal/abnormal . GRAN MAT (NEUT) % 63.7 % (test code = 770-8) IMM GRAN % (test 0.40 % code = 7592340321) LYMPH % (test code 26.2 % = 736-9) MONO % (test code 7.6 % = 5905-5) EOS % (test code = 1.7 % 713-8) BASO % (test code 0.4 % = 706-2) GRAN MAT 3.45 10*3/uL 1.88-7.09 x10^3(ANC) (test code = 7615201581) IMM GRAN x10^3 <0.03 0.00-0.06 (test code = 4905071530) LYMPH x10^3 (test 1.42 10*3/uL 1.32-3.29 code = 731-0) MONO x10^3 (test 0.41 10*3/uL 0.33-0.92 code = 742-7) EOS x10^3 (test 0.09 10*3/uL 0.03-0.39 code = 711-2) BASO x10^3 (test <0.03 0.01-0.07 code = 704-7) [facility]. METABOLIC PANEL (86721)2020-10-04 23:43:59 Test Item Value Reference Range Interpretation Comments NA (test code = 138 mmol/L 135-145 7492110256) K (test code = 4.1 mmol/L 3.5-5.0 9638997213) CL (test code = 105 mmol/L 98-108 6637126919) CO2 TOTAL (test code = 26 mmol/L 23-31 6349102602) AGAP (test code = 2-16 1290057110) BUN (test code = 12 mg/dL 7-23 8475039878) GLUCOSE (test code = 124 mg/dL 70-110 H 2106088582) CREATININE (test code = 0.51 mg/dL 0.50-1.04 8034653378) TOTAL BILI (test code = 1.0 mg/dL 0.1-1.4 1000423229) CALCIUM (test code = 9.3 mg/dL 8.6-10.6 6381073122) T PROTEIN (test code = 7.9 g/dL 6.3-8.2 0922863313) ALBUMIN (test code = 4.1 g/dL 3.5-5.0 4918500193) ALK PHOS (test code = 619 U/L 34-122 H 4384220341) ALTv (test code = 99 U/L 5-35 H 1742-6) AST(SGOT) (test code = 97 U/L 13-40 H 3684412235) eGFR (test code = mL/min/1.73m2 6291135096) KIM (test code = KIM) Association of [...] tests). Lab Interpretation Abnormal (test code = 17507-5) [facility]IP[facility]2021-06-22 23:43:38 Test Item Value Reference Range Interpretation Comments LIPASE (test code = 9200582340) 182 U/L 0-220 Lab Interpretation (test code = Normal 37773-7) [facility]COVID-[facility] (ID NOW RAPID TESTING)2020-10-04 23:39:59 Test Item Value Reference Range Interpretation Comments SARS-CoV-2 Rapid ID NOW Not Detected Not Detected (test code = 12015-1) KIM (test code = KIM) ID NOW COVID-19 Assay is an isothermal nucleic acid amplification test intended for the qualitative detection of nucleic acid from SARS-CoV-2 viral RNA in nasopharyngeal (MECHANIC RECOVERY) specimens. It is used under Emergency Use [...] indicated. Lab Interpretation Normal (test code = 15713-3) [facility]ressURINALYSIS2021-06-22 23:36:26 Test Item Value Reference Range Interpretation Comments APPEARANCE (test code = Clear Clear 3516447365) COLOR (test code = Lisa Yellow A 9796985469) PH (test code = 4.8-8.0 0695105658) SP GRAVITY (test code = 1.003-1.030 2349335136) GLU U QUAL (test code = Normal Normal 3571012734) BLOOD (test code = Negative Negative 1445854728) KETONES (test code = Negative Negative 4604479004) PROTEIN (test code = Negative Negative 2887-8) UROBILIN (test code = 4.0 mg/dL Normal A 2481490391) BILIRUBIN (test code = Negative Negative 1348325846) NITRITE (test code = Negative Negative 8283083251) LEUK NICHOLE (test code = Negative Negative 4543905213) RBC/HPF (test code = See_Comment [Autom ated message] 9897647806) The system [employer] generated this result transmit gulshan reference range : 0 - 3 HPF. The refe rence range was not u sed to interpret th is result as normal/abnormal . WBC/HPF (test code = <1 See_Comment [Autom ated message] 5463391437) The system [employer] generated this result transmit gulshan reference range : 0 - 5 HPF. The refe rence range was not u sed to interpret th is result as normal/abnormal . BACTERIA (test code = Few Negative A 7295141120) MUCOUS (test code = Slight Negative LPF A 2271610528) SQ EPITH (test code = HPF 0743720757) Lab Interpretation (test Abnormal code = 96100-9) [facility] WITH [id number] 23:29:18 Test Item Value Reference Range Interpretation [...] RDW-SD (test code = 40.5 fL 39.0-49.9 40117-9) RDW-CV (test code = 12.2 % 12.0-15.5 788-0) PLT (test code = See_Comment [Automated 777-3) message] The sy stem which generated this result transmitted reference range : 166 - 358 10*3/ ?L. The reference r luca was not used to interpret this result as normal/abnormal . MPV (test code = 9.8 fL 9.5-12.9 74806-1) NRBC/100 WBC (test See_Comment [Automat ed code = 8274977540) message] The system which generated this result transmitted reference range : 0.0 - 10.0 /100 WBCs. The refer ence range was not u sed to interpret th is result as normal/abnormal . NRBC x10^3 (test code <0.01 See_Comment [Auto mated = 5839285432) message] The s ystem which generated this result transmitted reference range : 10*3/?L. The reference range was not used to interpret this result as normal/abnormal . GRAN MAT (NEUT) % 72.0 % (test code = 770-8) IMM GRAN % (test code 0.20 % = 2464925388) LYMPH % (test code = 19.8 % 736-9) MONO % (test code = 6.4 % 5905-5) EOS % (test code = 1.4 % 713-8) BASO % (test code = 0.2 % 706-2) GRAN MAT x10^3(ANC) 3.06 10*3/uL 1.88-7.09 (test code = 5419562206) IMM GRAN x10^3 (test <0.03 0.00-0.06 code = 4065241794) LYMPH x10^3 (test code 0.84 10*3/uL 1.32-3.29 L = 731-0) MONO x10^3 (test code 0.27 10*3/uL 0.33-0.92 L = 742-7) EOS x10^3 (test code = 0.06 10*3/uL 0.03-0.39 711-2) BASO x10^3 (test code <0.03 0.01-0.07 = 704-7) Lab Interpretation Abnormal (test code = 26281-3) [facility]ressMR, ABDOMEN, [id number] 13:41:00Liver Protocol with ElastographyUnlisted Reason for Exam - Click Yes and Enter Reason Below->YesUnlisted Reason for Exam->History of liver fibrosis [facility] : 1960 Sex: FFINAL REPORT TECHNIQUE: [...] MDReport Verified Date/Time: 09/08/2020 13:41:30 Reading Location: [address] Consult Reading Room PROTHROMBIN TIME/[id number] 04:34:00 Test Item Value Reference Range Interpretation Comments PROTIME (BEAKER) 11.7 seconds 11.9-14.2 L (test code = 759) INR (BEAKER) (test 0.88 See_Comment [Automat ed message] code = 370) The system [employer] generated this result transmitted ref erence range: <=5.90. The reference range was not used to int erpret this result as normal/abnormal . RECOMMENDED COUMADIN/WARFARIN INR THERAPY RANGESSTANDARD DOSE: 2.0 - 3.0 Includes: PROPHYLAXIS for venous thrombosis, systemic embolization; TREATMENT for venous thrombosis and/or pulmonary embolus.HIGH RISK: Target INR is 2.5-3.5 for patients with mechanical heart valves.BASIC METABOLIC [id number] 04:51:00 Test Item Value Reference Range Interpretation [...] S NOT APPLICABLE FOR DIALYSIS PATIEN TS. Negative Cleaner ID Ryan FOLEY WHEPATIC FUNCTION [id number] 04:51:00 Test Item Value Reference Range Interpretation [...] code = 132 U/L 6-55 H 347) Negative Cleaner ID Ryan FOLEY [id number] 04:51:00 Test Item Value Reference Range Interpretation Comments LIPASE (BEAKER) (test code = 749) 115 U/L 8-78 H Negative Cleaner ID Ryan FOLEY WPROTHROMBIN TIME/[id number] 04:25:00 Test Item Value Reference Range Interpretation Comments PROTIME (TERRY) 12.3 seconds 11.9-14.2 (test code = 759) INR (TERRY) (test 0.94 See_Comment [Automat ed message] code = 370) The system [employer] generated this result transmitted ref erence range: <=5.90. The reference range was not used to int erpret this result as normal/abnormal . RECOMMENDED COUMADIN/WARFARIN INR THERAPY RANGESSTANDARD DOSE: 2.0 - 3.0 Includes: PROPHYLAXIS for venous thrombosis, systemic embolization; TREATMENT for venous thrombosis and/or pulmonary embolus.HIGH RISK: Target INR is 2.5-3.5 for patients with mechanical heart valves.FL, [id number] 08:00:00INTRA OP IMAGIN Reason for exam:->[facility] : 1960 Sex: FFluoroscopic unit utilized for a procedure performed in the OR. No interpretation was requested. Refer to the operative report for findings. Refer to PACS for patient radiation dose information.SARS-COV2/RT-PCR ([facility])2020-09-06 06:35:00 Test Item Value Reference Range Interpretation Comments SARS-COV2/RT-PCR (test Negative Not Detected, Negative, code = 0700833) See external report for linked test SARS-COV-2 PERFORMING LAB [facility] (test code = 6308646) Negative result for this test determines that [...] the Simms SARS-CoV-2 assay.Fact Sheet for Healthcare Providers:https://www.molecular.simms/bertha/RT_SAR X-LfA-4_ZCJ_Rcse_Nmcdd_45-786320.pdfFact Sheet for Healthcare Patients:https://www.[employer].simms/s al/DU_WYXK-VrF-0_Gblgyei_Leyn_Rfbjn_ST_78-416100W5.pdfPerforming Laboratory:[facility] [place] [address] PROTHROMBIN TIME/[id number] 04:41:00 Test Item Value Reference Range Interpretation Comments PROTIME (BEAKER) 12.4 seconds 11.9-14.2 (test code = 759) INR (BEAKER) (test 0.95 See_Comment [Automat ed message] code = 370) The system [employer] generated this result transmitted ref erence range: <=5.90. The reference range was not used to int erpret this result as normal/abnormal . RECOMMENDED COUMADIN/WARFARIN INR THERAPY RANGESSTANDARD DOSE: 2.0 - 3.0 Includes: PROPHYLAXIS for venous thrombosis, systemic embolization; TREATMENT for venous thrombosis and/or pulmonary embolus.HIGH RISK: Target INR is 2.5-3.5 for patients with mechanical heart valves.[id number] 14:40:00 Test Item Value Reference Range Interpretation Comments MAGNESIUM (BEAKER) 1.9 mg/dL 1.6-2.6 Specimen slightly (test code = 627) hemolyzed Negative Cleaner ID - MIGDALIA FBASIC METABOLIC [id number] 14:40:00 Test Item Value Reference Range Interpretation [...] S NOT APPLICABLE FOR DIALYSIS PATIEN TS. Negative Cleaner ID Ryan NEGRON EPATIC FUNCTION [id number] 14:40:00 Test Item Value Reference Range Interpretation [...] Specimen slightly (test code = 347) hemolyzed Negative Cleaner ID - MIGDALIA [id number] 14:40:00 Test Item Value Reference Range Interpretation Comments LIPASE (BEAKER) (test code = 749) 446 U/L 8-78 H Negative Cleaner ID Ryan NEGRON FCBC W/PLT COUNT & AUTO [id number] 14:14:00 Test Item Value Reference Range Interpretation [...] 0-1 PERCENT (BEAKER) (test code = 2801) OR, [id number] 08:35:00Reason for exam:->abnormal imaging [facility] : 1960 Sex: FFluoroscopic unit utilized for a procedure performed in the OR. No interpretation was requested. Refer to the operative report for findings. Refer to PACS for patient radiation dose information.[id number] 06:42:00 Test Item Value Reference Range Interpretation Comments MAGNESIUM (BEAKER) (test code = 1.8 mg/dL 1.6-2.6 627) Negative Cleaner ID - [id number] 06:42:00 Test Item Value Reference Range Interpretation Comments PHOSPHORUS (BEAKER) (test code = 3.4 mg/dL 2.3-4.7 604) Negative Cleaner ID - EDASIHEPATIC FUNCTION [id number] 06:42:00 Test Item Value Reference Range Interpretation [...] code = 89 U/L 6-55 H 347) Negative Cleaner ID - EDASIBASIC METABOLIC [id number] 06:42:00 Test Item Value Reference Range Interpretation [...] S NOT APPLICABLE FOR DIALYSIS PATIEN TS. Negative Cleaner ID - EDASICBC W/PLT COUNT & AUTO [id number] 05:27:00 Test Item Value Reference Range Interpretation [...] PERCENT (BEAKER) (test code = 2801) SARS-COV2/RT-PCR ([facility])2020-08-26 12:43:00 Test Item Value Reference Range Interpretation Comments SARS-COV2/RT-PCR (test Negative Not Detected, Negative, code = 7375788) See external report for linked test SARS-COV-2 PERFORMING LAB [facility] (test code = 0192345) Negative result for this test determines that [...] of the Act.Fact Sheet for Healthcare Prov iders:https://www.[employer]/sites/default/files/product/documents/Fact_Sheet_HC _Scqtooapx_Nirk_SODN-HsH-9.pdfFact Sheet for Healthcare Patients:https://www.[employer].com/sites/default/files/product/docume nts/Balg_Wtpxg_Zsqihtcg_Ifzy_MJTC-RpA-2.pdfPerforming Laboratory:[facility], [place] [address]OKRSU METABOLIC PANEL 2020-08-26 06:19:00 Test Item Value [...] S NOT APPLICABLE FOR DIALYSIS PATIEN TS. Negative Cleaner ID - PIAYA [id number] 06:19:00 Test Item Value Reference Range Interpretation Comments MAGNESIUM (BEAKER) (test code = 1.8 mg/dL 1.6-2.6 627) Negative Cleaner ID - PIAYA LHEPATIC FUNCTION [id number] 06:19:00 Test Item Value Reference Range Interpretation [...] code = 82 U/L 6-55 H 347) Negative Cleaner HONG THOMPSON LCBC W/PLT COUNT & AUTO [id number] 05:37:00 Test Item Value Reference Range Interpretation [...] images do not require a Radiology diagnostic report.[facility] TIME OR (NON-REPORTABLE)2020-07-18 13:25:02These images do not require a Radiology diagnostic report.[facility] GLUCOSE (AUTOMATED) 2020-07-18 12:07:46 Test Item Value Reference Range Interpretation Comments POCT GLU (test code = 5336450525) 98 mg/dL 70-110 Lab Interpretation (test code = Normal 43564-4) [facility] GLUCOSE (AUTOMATED)2020-07-18 12:07:46 Test Item Value Reference Range Interpretation Comments POCT GLU (test code = 2271563962) 98 mg/dL 70-110 Lab Interpretation (test code = Normal 46382-9) [facility] ABDOMEN PELVIS W [id number] 01:39:22 1. ?No acute obstruction or inflammation in the abdomen or pelvis. 2. Appendix removed. 3. No adnexal mass. 4. There is abundant stool throughout the colon. RL: 1105 HISTORY: ?Abdominal abscess/infection suspected COMPARISON:none TECHNIQUE:CT scan of the abdomen and pelvis performed. Contiguous axial CT imageswere obtained after administration of intravenous contrast. ?CT scan doneaccording to [facility]. Technical quality: Technical quality: adequate. FINDINGS: Lung [...] administration ofintravenous contrast. CT scan doneaccording to [facility]. Technical quality: Technical quality: adequate.FINDINGS:Lung bases are [...] There is abundant stool throughoutthe colon.RL: 1105 [facility] [id number] 00:55:45 Test Item Value Reference Range Interpretation Comments TROPONIN I (test 0.002 ng/mL See_Comment [Automated code = 5946186279) message] The system which generated this result [...] ? Lab Interpretation Normal (test code = 53190-5) [facility] (ID NOW RAPID TESTING)2020-07-08 00:47:04 Test Item Value Reference Range Interpretation Comments SARS-CoV-2 Rapid ID NOW Not Detected Not Detected (test code = 64528-9) KIM (test code = KIM) ID NOW COVID-19 Assay is an isothermal nucleic acid amplification test intended for the qualitative detection of nucleic acid from SARS-CoV-2 viral RNA in nasopharyngeal (MECHANIC RECOVERY) specimens. It is used under Emergency Use [...] indicated. Lab Interpretation Normal (test code = 97724-2) [facility]ressMAGNESIUM2021-03-26 00:45:06 Test Item Value Reference Range Interpretation Comments MAGNESIUM (test code = 5844110653) 2.0 mg/dL 1.7-2.4 Lab Interpretation (test code = Normal 14529-4) [facility] CypressCOMP. METABOLIC PANEL (68320)2020-07-08 00:44:41 Test Item Value Reference Range Interpretation Comments NA (test code = 139 mmol/L 135-145 8321997449) K (test code = 4.4 mmol/L 3.5-5.0 4385761816) CL (test code = 108 mmol/L 98-108 0738592454) CO2 TOTAL (test code = 23 mmol/L 23-31 0452940320) AGAP (test code = 2-16 1736635477) BUN (test code = 22 mg/dL 7-23 1978973897) GLUCOSE (test code = 107 mg/dL 70-110 7745563865) CREATININE (test code = 0.62 mg/dL 0.50-1.04 4248486475) TOTAL BILI (test code = 0.9 mg/dL 0.1-1.4 9502353719) CALCIUM (test code = 10.0 mg/dL 8.6-10.6 0742612005) T PROTEIN (test code = 8.3 g/dL 6.3-8.2 H 5226256549) ALBUMIN (test code = 4.8 g/dL 3.5-5.0 3114529664) ALK PHOS (test code = 1085 U/L 34-122 H 9526246261) ALTv (test code = 383 U/L 5-35 H 1742-6) AST(SGOT) (test code = 217 U/L 13-40 H 1495091124) eGFR Calculation mL/min/1.73m2 (Non-) (test code = 6913252296) eGFR Calculation mL/min/1.73m2 () (test code = 8056326416) KIM (test code = KIM) Association of [...] tests). Lab Interpretation Abnormal (test code = 26755-0) [facility]44[facility]41 Test Item Value Reference Range Interpretation Comments LIPASE (test code = 2825638909) 131 U/L 0-220 Lab Interpretation (test code = Normal 56105-9) [facility]IN[facility]IS2021-03-26 00:38:06 Test Item Value Reference Range Interpretation Comments APPEARANCE (test code = Clear Clear 0476874604) COLOR (test code = Yellow Yellow 4749124133) PH (test code = 4.8-8.0 4390838013) SP GRAVITY (test code = 1.003-1.030 8028523149) GLU U QUAL (test code = Normal Normal 7049313419) BLOOD (test code = Negative Negative 2699702262) KETONES (test code = Negative Negative 6191544583) PROTEIN (test code = Negative Negative 2887-8) UROBILIN (test code = 4.0 mg/dL Normal A 0721584675) BILIRUBIN (test code = Negative Negative 3855521141) NITRITE (test code = Negative Negative 3251042154) LEUK NICHOLE (test code = Negative Negative 0488290608) RBC/HPF (test code = <1 See_Comment [Autom ated message] 4852672287) The system [employer] generated this result transmit gulshan reference range : 0 - 3 HPF. The refe rence range was not u sed to interpret th is result as normal/abnormal . WBC/HPF (test code = See_Comment [Autom ated message] 3213261890) The system [employer] generated this result transmit gulshan reference range : 0 - 5 HPF. The refe rence range was not u sed to interpret th is result as normal/abnormal . BACTERIA (test code = Few Negative A 9107219265) MUCOUS (test code = Slight Negative LPF A 7846860551) SQ EPITH (test code = HPF 7404398701) Lab Interpretation (test Abnormal code = 78594-3) [facility] WITH [id number] 00:32:00 Test Item Value Reference Range Interpretation [...] RDW-SD (test code = 48.1 fL 39.0-49.9 82103-1) RDW-CV (test code = 14.5 % 12.0-15.5 788-0) PLT (test code = See_Comment [Automated 777-3) message] The sy stem which generated this result transmitted reference range : 166 - 358 10*3/ ?L. The reference r luca was not used to interpret this result as normal/abnormal . MPV (test code = 9.5 fL 9.5-12.9 36804-0) NRBC/100 WBC (test See_Comment [Automat ed code = 9963680652) message] The system which generated this result transmitted reference range : 0.0 - 10.0 /100 WBCs. The refer ence range was not u sed to interpret th is result as normal/abnormal . NRBC x10^3 (test code <0.01 See_Comment [Auto mated = 5412494983) message] The s ystem which generated this result transmitted reference range : 10*3/?L. The reference range was not used to interpret this result as normal/abnormal . GRAN MAT (NEUT) % 78.2 % (test code = 770-8) IMM GRAN % (test code 0.60 % = 6132256515) LYMPH % (test code = 11.9 % 736-9) MONO % (test code = 8.3 % 5905-5) EOS % (test code = 0.5 % 713-8) BASO % (test code = 0.5 % 706-2) GRAN MAT x10^3(ANC) 7.55 10*3/uL 1.88-7.09 H (test code = 8705301923) IMM GRAN x10^3 (test 0.06 10*3/uL 0.00-0.06 code = 0010679951) LYMPH x10^3 (test code 1.15 10*3/uL 1.32-3.29 L = 731-0) MONO x10^3 (test code 0.80 10*3/uL 0.33-0.92 = 742-7) EOS x10^3 (test code = 0.05 10*3/uL 0.03-0.39 711-2) BASO x10^3 (test code 0.05 10*3/uL 0.01-0.07 = 704-7) Lab Interpretation Abnormal (test code = 83800-8) [facility] TIME OR (NON-REPORTABLE)2020-07-04 13:40:03 These images do not require a Radiology diagnostic report.[facility] TIME OR (NON-REPORTABLE)2020-06-20 14:58:12These images do not require a Radiology diagnostic report.[facility] Metabolic Panel (NA, K, CL, CO2, GLUCOSE, BUN, CREATININE, CA)2020-05-06 23:29:00 Test Item Value Reference Range Interpretation Comments NA (test code = 138 mmol/L 135-145 0401095129) K (test code = 4.4 mmol/L 3.5-5 3401294539) CL (test code = 108 mmol/L 98-108 4756744570) CO2 TOTAL (test code = 20 mmol/L 23-31 L 3440946602) AGAP (test code = 2-16 4867819866) BUN (test code = 18 mg/dL 7-23 4897099948) GLUCOSE (test code = 90 mg/dL 70-110 3808327134) CREATININE (test code = 0.68 mg/dL 0.5-1.04 2042843212) CALCIUM (test code = 9.1 mg/dL 8.6-10.6 9822398875) eGFR Calculation mL/min/1.73m2 (Non-) (test code = 1924621438) eGFR Calculation mL/min/1.73m2 () (test code = 8482107033) KIM (test code = KIM) Association of [...] tests). Lab Interpretation Abnormal (test code = 88421-1) [facility] (ALB, T.PRO, BILI T, BU/BC, ALT, AST, ALK PHOS)2020-05-06 23:28:00 Test Item Value Reference Range Interpretation Comments TOTAL BILI (test code = 1574648985) 1.1 mg/dL 0.1-1.1 BILI UNCON (test code = 0906340924) 0.4 mg/dL 0.1-1.1 BILI CONJ (test code = 3907333666) 0.0 mg/dL 0-0.3 T PROTEIN (test code = 4136491024) 7.9 g/dL 6.3-8.2 ALBUMIN (test code = 0982334066) 4.4 g/dL 3.5-5 ALK PHOS (test code = 9163506025) 984 U/L 34-122 H ALTv (test code = 1742-6) 218 U/L 5-35 H AST(SGOT) (test code = 1379710885) 133 U/L 13-40 H Lab Interpretation (test code = Abnormal 63733-8) [facility]ressTroponin [id number] 22:19:00 Test Item Value Reference Range Interpretation Comments TROPONIN I (test 0.021 ng/mL See_Comment [Automated code = 4677141322) message] The system which generated this result [...] ? Lab Interpretation Normal (test code = 14813-2) [facility]OVID[facility] (ID NOW RAPID TESTING)2020-05-06 22:13:00 Test Item Value Reference Range Interpretation Comments SARS-CoV-2 Rapid ID NOW Not Detected Not Detected (test code = 08843-6) KIM (test code = KIM) ID NOW COVID-19 Assay is an isothermal nucleic acid amplification test intended for the qualitative detection of nucleic acid from SARS-CoV-2 viral RNA in nasopharyngeal (MECHANIC RECOVERY) specimens. It is used under Emergency Use [...] indicated. Lab Interpretation Normal (test code = 47526-1) [facility]ressUrinalysis2021-01-22 22:09:00 Test Item Value Reference Range Interpretation Comments APPEARANCE (test code = Clear Clear 7193875411) COLOR (test code = Yellow Yellow 6405532604) PH (test code = 4.8-8.0 5995362456) SP GRAVITY (test code = 1.003-1.030 3765312562) GLU U QUAL (test code = Normal Normal 4273355323) BLOOD (test code = Negative Negative INTERFERE NCE FROM 2558814676) ASCORBIC ACID M AY CAUSE FALSE NEG ATIVE RESULT KETONES (test code = Negative Negative 2268690212) PROTEIN (test code = Negative Negative 2887-8) UROBILIN (test code = 2.0 mg/dL Normal A 3171562688) BILIRUBIN (test code = Negative Negative 0263462088) NITRITE (test code = Negative Negative 9547039444) LEUK NICHOLE (test code = Negative Negative 0645493981) RBC/HPF (test code = See_Comment [Autom ated message] 0081973805) The system [employer] generated this result transmitted ref erence range: 0 - 3 HP F. The reference range was not used to int erpret this result as normal/abnormal . WBC/HPF (test code = See_Comment [Autom ated message] 5379842467) The system [employer] generated this result transmitted ref erence range: 0 - 5 HP F. The reference range was not used to int erpret this result as normal/abnormal . BACTERIA (test code = Few Negative A 2495686282) SQ EPITH (test code = HPF 5177016029) HYAL CAST (test code = See_Comment [Aut omated message] 2238153701) The system [employer] generated this result transmitted ref erence range: <=2 LPF. The reference range was not used to int erpret this result as normal/abnormal . Lab Interpretation Abnormal (test code = 18112-9) [facility]ressLipase [id number] 22:08:00 Test Item Value Reference Range Interpretation Comments LIPASE (test code = 7884821289) 114 U/L 0-220 Lab Interpretation (test code = Normal 05964-7) [facility]CB with [id number] 22:02:00 Test Item Value Reference Range Interpretation Comments WBC (test code = See_Comment [Automated 3390-2) message] The sy stem which generated this result transmitted reference range : 4.30 - 11.10 10*3/?L. The reference range was not used to interpret this result as normal/abnormal . RBC (test code = See_Comment [Automated 719-8) message] The sy stem which [...] RDW-SD (test code = 41.0 fL 39-49.9 16961-5) RDW-CV (test code = 12.4 % 12-15.5 788-0) PLT (test code = See_Comment [Automated 777-3) message] The sy stem which generated this result transmitted reference range : 166 - 358 10*3/ ?L. The reference r luca was not used to interpret this result as normal/abnormal . MPV (test code = 10.5 fL 9.5-12.9 95093-1) NRBC/100 WBC (test See_Comment [Automat ed code = 8484502314) message] The system which generated this result transmitted reference range : 0.0 - 10.0 /100 WBCs. The refer ence range was not u sed to interpret th is result as normal/abnormal . NRBC x10^3 (test code <0.01 See_Comment [Auto mated = 9614817754) message] The s ystem which generated this result transmitted reference range : 10*3/?L. The reference range was not used to interpret this result as normal/abnormal . GRAN MAT (NEUT) % 71.8 % (test code = 770-8) IMM GRAN % (test code 0.10 % = 1846885490) LYMPH % (test code = 19.0 % 736-9) MONO % (test code = 6.2 % 5905-5) EOS % (test code = 2.2 % 713-8) BASO % (test code = 0.7 % 706-2) GRAN MAT x10^3(ANC) 4.83 10*3/uL 1.88-7.09 (test code = 7925605948) IMM GRAN x10^3 (test <0.03 0-0.06 code = 0177894472) LYMPH x10^3 (test code 1.28 10*3/uL 1.32-3.29 L = 731-0) MONO x10^3 (test code 0.42 10*3/uL 0.33-0.92 = 742-7) EOS x10^3 (test code = 0.15 10*3/uL 0.03-0.39 711-2) BASO x10^3 (test code 0.05 10*3/uL 0.01-0.07 = 704-7) Lab Interpretation Abnormal (test code = 99190-0) [facility] 1 [id number] 21:48:28Findings and Impression: ?Subcentimeter calcified granuloma projecting [...] mildly enlarged. No acuteosseous abnormalities.[facility]ressUrinalysis2020-12-12 05:27:00 Test Item Value Reference Range Interpretation Comments APPEARANCE (test code Slightly Cloudy Clear A = 5614964753) COLOR (test code = Yellow Yellow 1710524470) PH (test code = 4.8-8.0 4119327653) SP GRAVITY (test code >=1.030 1.003-1.030 = 2641665191) GLU U QUAL (test code Negative Negative = 4997114068) BLOOD (test code = Trace Negative A 6831032836) KETONES (test code = Negative Negative 8707491076) PROTEIN (test code = Negative Negative 2887-8) UROBILIN (test code = 1.0 mg/dL See_Comment [Auto mated 6567059655) message] The system which generated this result transmit gulshan reference range : 0-1.0 mg/dL. Th e reference range was not used to interpret this result as normal/abnormal . BILIRUBIN (test code Small Negative A = 5656227482) NITRITE (test code = Negative Negative 7293403790) LEUK NICHOLE (test code Trace Negative A = 1714733789) RBC/HPF (test code = See_Comment [Autom ated 0469232390) message] The system which generated this result transmit gulshan reference range : 0 - 3 HPF. The reference range was not used to interpret this result as normal/abnormal . WBC/HPF (test code = See_Comment [Autom ated 7520134477) message] The system which generated this result transmit gulshan reference range : 0 - 5 HPF. The reference range was not used to interpret this result as normal/abnormal . BACTERIA (test code = Few Negative A 7551965686) AMORPHOUS (test code Few Rare HPF A = 7232625767) SQ EPITH (test code = HPF 2871911159) Lab Interpretation Abnormal (test code = 19204-9) [facility] (ID NOW RAPID TESTING)2020-03-26 04:39:00 Test Item Value Reference Range Interpretation Comments SARS-CoV-2 Rapid ID NOW Not Detected Not Detected (test code = 64023-9) KIM (test code = KIM) ID NOW COVID-19 Assay is an isothermal nucleic acid amplification test intended for the qualitative detection of nucleic acid from SARS-CoV-2 viral RNA in nasopharyngeal (MECHANIC RECOVERY) specimens. It is used under Emergency Use [...] indicated. Lab Interpretation Normal (test code = 57041-0) [facility]ressComplete Metabolic [id number] 04:12:00 Test Item Value Reference Range Interpretation Comments NA (test code = 139 mmol/L 135-145 0284903398) K (test code = 4.5 mmol/L 3.5-5 1981190350) CL (test code = 108 mmol/L 98-108 2095918359) CO2 TOTAL (test code = 22 mmol/L 23-31 L 9741878724) AGAP (test code = 2-16 6673293040) BUN (test code = 17 mg/dL 7-23 9012283352) GLUCOSE (test code = 102 mg/dL 70-110 9734825152) CREATININE (test code = 0.96 mg/dL 0.5-1.04 1778470953) TOTAL BILI (test code = 0.7 mg/dL 0.1-1.5 3959250540) CALCIUM (test code = 9.3 mg/dL 8.6-10.6 7269161989) T PROTEIN (test code = 7.3 g/dL 6.3-8.2 4218005245) ALBUMIN (test code = 4.1 g/dL 3.5-5 5831843654) ALK PHOS (test code = 675 U/L 34-122 H 9423395793) ALTv (test code = 115 U/L 5-35 H 1742-6) AST(SGOT) (test code = 100 U/L 13-40 H 9670859836) eGFR Calculation mL/min/1.73m2 (Non-) (test code = 8199440739) eGFR Calculation mL/min/1.73m2 () (test code = 0230866887) KIM (test code = KIM) Association of [...] tests). Lab Interpretation Abnormal (test code = 61662-4) [facility]ressLip[facility], [id number] 04:11:00 Test Item Value Reference Range Interpretation Comments LIPASE (test code = 1023189368) 171 U/L 0-220 Lab Interpretation (test code = Normal 04912-6) [facility]CBC with [id number] 03:56:00 Test Item Value Reference Range Interpretation [...] RDW-SD (test code = 47.5 fL 39-49.9 61410-1) RDW-CV (test code = 13.3 % 12-15.5 788-0) PLT (test code = See_Comment [Automated 777-3) message] The sy stem which generated this result transmitted reference range : 166 - 358 10*3/ ?L. The reference r luca was not used to interpret this result as normal/abnormal . MPV (test code = 9.4 fL 9.5-12.9 L 18085-3) NRBC/100 WBC (test See_Comment [Automat ed code = 5782351097) message] The system which generated this result transmitted reference range : 0.0 - 10.0 /100 WBCs. The refer ence range was not u sed to interpret th is result as normal/abnormal . NRBC x10^3 (test code <0.01 See_Comment [Auto mated = 4296576791) message] The s ystem which generated this result transmitted reference range : 10*3/?L. The reference range was not used to interpret this result as normal/abnormal . GRAN MAT (NEUT) % 67.1 % (test code = 770-8) IMM GRAN % (test code 0.70 % = 4354310930) LYMPH % (test code = 22.2 % 736-9) MONO % (test code = 6.4 % 5905-5) EOS % (test code = 2.9 % 713-8) BASO % (test code = 0.7 % 706-2) GRAN MAT x10^3(ANC) 3.69 10*3/uL 1.88-7.09 (test code = 0665941902) IMM GRAN x10^3 (test 0.04 10*3/uL 0-0.06 code = 6248381508) LYMPH x10^3 (test code 1.22 10*3/uL 1.32-3.29 L = 731-0) MONO x10^3 (test code 0.35 10*3/uL 0.33-0.92 = 742-7) EOS x10^3 (test code = 0.16 10*3/uL 0.03-0.39 711-2) BASO x10^3 (test code 0.04 10*3/uL 0.01-0.07 = 704-7) Lab Interpretation Abnormal (test code = 83301-8) [facility]ressMR BRAIN WO [id number] 17:24:06 Impression: 1. ?Normal MRI brain. 2. [...] MRI brain.2. Mastoid effusions.3. Right petrous apex effusion.[facility] CypressBLOOD CULTURE [id number] 21:10:00 Test Item Value Reference Range Interpretation Comments Blood Culture-Aerobic Culture positive. No growth AA P revious (test code = 42646-6) See Blood Culture p reliminary Workup for verified result additional was Culture In information. Progress on 02/02/2020 at 1901 CDT Blood No organisms No growth Previous Culture-Anaerobic isolated preliminar y (test code = 01176-7) verifi ed result was Culture In Progress on 02/03/2020 at 1314 CDT Lab Interpretation Abnormal (test code = 14511-7) [facility]BL[facility] C[facility] [id number] 21:01:00 Test Item Value Reference Range Interpretation Comments Blood Culture-Aerobic No organisms No growth Previo us (test code = 47242-1) isolated prelim inary verified result was Culture [...] Culture-Anaerobic isolated preliminar y (test code = 43486-6) verifi ed result was Culture In Progress [...] CDT Lab Interpretation Normal (test code = 07055-4) [facility] METABOLIC PANEL (NA, K, CL, CO2, GLUCOSE, BUN, CREATININE, CA)2020-02-07 09:09:00 Test Item Value Reference Range Interpretation Comments NA (test code = 136 mmol/L 135-145 4952694039) K (test code = 4.3 mmol/L 3.5-5 Slight hemoly sis 7945695465) CL (test code = 104 mmol/L 98-108 2120670276) CO2 TOTAL (test 26 mmol/L 23-31 code = 8308769961) AGAP (test code = 2-16 7667227308) BUN (test code = 12 mg/dL 7-23 Slight hemo lysis 7729152361) GLUCOSE (test code 98 mg/dL 70-110 = 1264542173) CREATININE (test 0.50 mg/dL 0.5-1.04 code = 5182225387) CALCIUM (test code 8.9 mg/dL 8.6-10.6 = 2634616104) eGFR Calculation mL/min/1.73m2 (Non-) (test code = 2919967016) eGFR Calculation mL/min/1.73m2 () (test code = 1189677099) KIM (test code = Association of KIM) [...] or urine or abnormalities in imaging tests). [facility] WITH [id number] 08:58:00 Test Item Value Reference Range Interpretation Comments WBC (test code = See_Comment [Automated 0480-2) message] The sy stem which generated this [...] RDW-SD (test code = 48.5 fL 39-49.9 66244-2) RDW-CV (test code = 13.9 % 12-15.5 788-0) PLT (test code = See_Comment [Automated 777-3) message] The sy stem which generated this result transmitted reference range : 166 - 358 10*3/ ?L. The reference r luca was not used to interpret this result as normal/abnormal . MPV (test code = 9.1 fL 9.5-12.9 L 35510-5) NRBC/100 WBC (test See_Comment [Automat ed code = 6291152118) message] The system which generated this result transmitted reference range : 0.0 - 10.0 /100 WBCs. The refer ence range was not u sed to interpret th is result as normal/abnormal . NRBC x10^3 (test code <0.01 See_Comment [Auto mated = 7586375609) message] The s ystem which generated this result transmitted reference range : 10*3/?L. The reference range was not used to interpret this result as normal/abnormal . GRAN MAT (NEUT) % 69.8 % (test code = 770-8) IMM GRAN % (test code 0.40 % = 9430246140) LYMPH % (test code = 21.9 % 736-9) MONO % (test code = 6.7 % 5905-5) EOS % (test code = 0.8 % 713-8) BASO % (test code = 0.4 % 706-2) GRAN MAT x10^3(ANC) 3.66 10*3/uL 1.88-7.09 (test code = 3795173499) IMM GRAN x10^3 (test <0.03 0-0.06 code = 1298088791) LYMPH x10^3 (test code 1.15 10*3/uL 1.32-3.29 L = 731-0) MONO x10^3 (test code 0.35 10*3/uL 0.33-0.92 = 742-7) EOS x10^3 (test code = 0.04 10*3/uL 0.03-0.39 711-2) BASO x10^3 (test code <0.03 0.01-0.07 = 704-7) Lab Interpretation Abnormal (test code = 46283-3) [facility] MUSCLE AB,IGG W/[id number] 15:17:00 Test Item Value Reference Range Interpretation Comments F-ACTIN (SMOOTH See_Comment If F-Actin (Smooth Muscle) MUSCLE) AB, Antibody, IgG i s negative, IGG(BEAKER) (test the Smooth Muscle Antibody code = 91455-7) titer by IFA is not performed.REFER ENCE INTERVAL: F-Act in (Smooth Muscle) Antibod y, IgG by ?EMLONY ?19 Units or less . ...... Negative [...] for A IH is strong.Performe d By: [employer] [place] [address] [id number] Director: Praveena Mantilla MD [Automated mess age] The system which ge nerated this result transmit gulshan reference range : 0 - 19 Units. The refe rence range was not used to interpret this result as normal/abnormal . [facility] CypressMITOCHONDRIAL M2 AB, [id number] 00:28:00 Test Item Value Reference Range Interpretation Comments AMA (test code = See_Comment H REFERENCE I NTERVAL: 54980-0) Mitochondrial ( M2) Antibody, IgG ? ?20.0 [...] rule out PBC.Perform ed By: [facility] [place] [id number] Director: Praveena Mantilla MD [Aut omated message] The sy stem which generated this result transmit gulshan reference range : 0.0 - 24.9 Units. The reference range was not used to int erpret this result as normal/abnormal . Lab Interpretation Abnormal (test code = 70078-7) [facility]ressBLOOD CULTURE [id number] 17:01:00 Test Item Value Reference Range Interpretation Comments Blood Culture-Aerobic No organisms No growth Previo us (test code = 32570-0) isolated prelim inary verified result was Culture [...] Culture-Anaerobic isolated preliminar y (test code = 88259-6) verifi ed result was Culture In Progress [...] CDT Lab Interpretation Normal (test code = 98038-0) [facility]ressBL[facility] CULT[facility] [id number] 14:01:00 Test Item Value Reference Range Interpretation Comments Blood Culture Coagulase negative Addition al Workup (test Staphylococcus work-up perfo rmed code = 600-7) only per reque st. Culture plate(s ) will be saved until this date : - 02/10/20 Gram stain Isolated from aerobic (test code = bottle Gram positive 664-3) cocci [facility] CypressCOMP. METABOLIC PANEL (75734)2020-02-05 09:59:00 Test Item Value Reference Range Interpretation Comments NA (test code = 140 mmol/L 135-145 5541098607) K (test code = 3.7 mmol/L 3.5-5 3987227018) CL (test code = 107 mmol/L 98-108 8086050762) CO2 TOTAL (test code = 25 mmol/L 23-31 3094739918) AGAP (test code = 2-16 0357904802) BUN (test code = 11 mg/dL 7-23 0436506369) GLUCOSE (test code = 90 mg/dL 70-110 3007793113) CREATININE (test code = 0.58 mg/dL 0.5-1.04 5924762613) TOTAL BILI (test code = 0.9 mg/dL 0.1-1.3 3185853604) CALCIUM (test code = 8.9 mg/dL 8.6-10.6 5576479004) T PROTEIN (test code = 6.7 g/dL 6.3-8.2 9523218785) ALBUMIN (test code = 3.5 g/dL 3.5-5 8658367213) ALK PHOS (test code = 518 U/L 34-122 H 3119538508) ALTv (test code = 84 U/L 5-35 H 1742-6) AST(SGOT) (test code = 49 U/L 13-40 H 4764733514) eGFR Calculation mL/min/1.73m2 (Non-) (test code = 2242163307) eGFR Calculation mL/min/1.73m2 () (test code = 2477745082) KIM (test code = KIM) Association of [...] tests). Lab Interpretation Abnormal (test code = 50111-0) [facility] WITH [id number] 09:43:00 Test Item Value Reference Range Interpretation Comments WBC (test code = See_Comment [Automated 4155-2) message] The sy stem which generated this result transmitted reference range : 4.30 - 11.10 10*3/?L. The reference range was not used to interpret this result as normal/abnormal . RBC (test code = See_Comment L [Automated 731-8) message] The sy stem which generated this [...] RDW-SD (test code = 48.1 fL 39-49.9 53282-3) RDW-CV (test code = 13.4 % 12-15.5 788-0) PLT (test code = See_Comment [Automated 777-3) message] The sy stem which generated this result transmitted reference range : 166 - 358 10*3/ ?L. The reference r luca was not used to interpret this result as normal/abnormal . MPV (test code = 8.7 fL 9.5-12.9 L 30866-9) NRBC/100 WBC (test See_Comment [Automat ed code = 4230619349) message] The system which generated this result transmitted reference range : 0.0 - 10.0 /100 WBCs. The refer ence range was not u sed to interpret th is result as normal/abnormal . NRBC x10^3 (test code <0.01 See_Comment [Auto mated = 6921059626) message] The s ystem which generated this result transmitted reference range : 10*3/?L. The reference range was not used to interpret this result as normal/abnormal . GRAN MAT (NEUT) % 68.3 % (test code = 770-8) IMM GRAN % (test code 0.20 % = 4934255790) LYMPH % (test code = 24.2 % 736-9) MONO % (test code = 5.5 % 5905-5) EOS % (test code = 1.4 % 713-8) BASO % (test code = 0.4 % 706-2) GRAN MAT x10^3(ANC) 3.47 10*3/uL 1.88-7.09 (test code = 9290287415) IMM GRAN x10^3 (test <0.03 0-0.06 code = 5183577942) LYMPH x10^3 (test code 1.23 10*3/uL 1.32-3.29 L = 731-0) MONO x10^3 (test code 0.28 10*3/uL 0.33-0.92 L = 742-7) EOS x10^3 (test code = 0.07 10*3/uL 0.03-0.39 711-2) BASO x10^3 (test code <0.03 0.01-0.07 = 704-7) Lab Interpretation Abnormal (test code = 75063-5) [facility] CERVICAL SPINE WO [id number] 05:59:37 Mild degenerative changes most pronounced at C5-C6 and C6-C7 as above. RL: 460 AFC: [id number] Ordering physician: JESUSITA AGUILLON INDICATION: Neck pain, radiculopathy COMPARISON: None [...] User - 02/05/2020 1:00 AM CDTOrdering physician: JESUSITA CARVAJALDICATION: Neck pain, radiculopathyCOMPARISON: NoneTECHNIQUE: MRI of [...] at C5-C6 and C6-C7 as above.RL: 460AF: [id number] signed by Minal Vaughan MD, PhD at 02/05/2020 12:59 AMUn[facility] HospitalOCCULT (GUAIAC) ENZTZ2021-10-10 14:40:00 Test Item Value Reference Range Interpretation Comments Occult (guaiac) Blood (test code = Negative Negative 2335-8) Lab Interpretation (test code = Normal 62045-1) [facility] [id number] 10:32:00 Test Item Value Reference Range Interpretation Comments NT-proBNP (test code 403 pg/mL See_Comment H [Autom ated = 5834163285) message] The system which generated this result transmitted reference range : <=125. The reference range was not used to interpret this result as normal/abnormal . KIM (test code = KIM) Biotin has been reported to cause a negative bias, interpret results relative to patient's use of biotin. Lab Interpretation Abnormal (test code = 15493-9) [facility]. METABOLIC PANEL ([id number])2020-02-04 10:24:00 Test Item Value Reference Range Interpretation Comments NA (test code = 138 mmol/L 135-145 4318751792) K (test code = 3.7 mmol/L 3.5-5 2491026556) CL (test code = 106 mmol/L 98-108 6108707811) CO2 TOTAL (test code = 27 mmol/L 23-31 9562861031) AGAP (test code = 2-16 7054146330) BUN (test code = 9 mg/dL 7-23 6219829286) GLUCOSE (test code = 105 mg/dL 70-110 0171258599) CREATININE (test code = 0.59 mg/dL 0.5-1.04 2358690823) TOTAL BILI (test code = 0.9 mg/dL 0.1-1.7 9622285587) CALCIUM (test code = 9.0 mg/dL 8.6-10.6 8376391523) T PROTEIN (test code = 6.4 g/dL 6.3-8.2 3661730127) ALBUMIN (test code = 3.2 g/dL 3.5-5 L 3240406163) ALK PHOS (test code = 486 U/L 34-122 H 2278564029) ALTv (test code = 91 U/L 5-35 H 1742-6) AST(SGOT) (test code = 41 U/L 13-40 H 7331589943) eGFR Calculation mL/min/1.73m2 (Non-) (test code = 6834810366) eGFR Calculation mL/min/1.73m2 () (test code = 7695468344) KIM (test code = KIM) Association of [...] tests). Lab Interpretation Abnormal (test code = 07211-4) [facility]ressMAGNESIUM2020-10-22 10:24:00 Test Item Value Reference Range Interpretation Comments MAGNESIUM (test code = 1478337101) 1.8 mg/dL 1.7-2.4 Lab Interpretation (test code = Normal 38174-3) [facility]ressCB with [id number] 10:11:00 Test Item Value Reference Range Interpretation [...] RDW-SD (test code = 47.9 fL 39-49.9 54130-3) RDW-CV (test code = 13.7 % 12-15.5 788-0) PLT (test code = See_Comment [Automated 777-3) message] The sy stem which generated this result transmitted reference range : 166 - 358 10*3/ ?L. The reference r luca was not used to interpret this result as normal/abnormal . MPV (test code = 8.5 fL 9.5-12.9 L 50567-1) NRBC/100 WBC (test See_Comment [Automat ed code = 5835595915) message] The system which generated this result transmitted reference range : 0.0 - 10.0 /100 WBCs. The refer ence range was not u sed to interpret th is result as normal/abnormal . NRBC x10^3 (test code <0.01 See_Comment [Auto mated = 2284682455) message] The s ystem which generated this result transmitted reference range : 10*3/?L. The reference range was not used to interpret this result as normal/abnormal . GRAN MAT (NEUT) % 74.2 % (test code = 770-8) IMM GRAN % (test code 0.40 % = 8954327149) LYMPH % (test code = 16.6 % 736-9) MONO % (test code = 6.8 % 5905-5) EOS % (test code = 1.7 % 713-8) BASO % (test code = 0.3 % 706-2) GRAN MAT x10^3(ANC) 5.60 10*3/uL 1.88-7.09 (test code = 4146678745) IMM GRAN x10^3 (test 0.03 10*3/uL 0-0.06 code = 8857698690) LYMPH x10^3 (test code 1.25 10*3/uL 1.32-3.29 L = 731-0) MONO x10^3 (test code 0.51 10*3/uL 0.33-0.92 = 742-7) EOS x10^3 (test code = 0.13 10*3/uL 0.03-0.39 711-2) BASO x10^3 (test code <0.03 0.01-0.07 = 704-7) Lab Interpretation Abnormal (test code = 51374-1) [facility]ressANTI-NUCLEAR ANTIBODY [id number] 19:43:00 Test Item Value Reference Range Interpretation Comments LESLY (test code = Negative Negative 6301466404) KIM (test code = KIM) Cytoplasmic staining reactions observed. Negative - No Anti-Nuclear Antibodies detected by IFA.Positive - LESLY IFA screen performed with a 1:80 dilution in adults and a 1:40 dilution in pediatrics. Any LESLY "Positive" will have titer performed and reported separately. Lab Interpretation (test Normal code = 37353-3) [facility] CypressCERULOPLASMIN2020-10-21 18:45:00 Test Item Value Reference Range Interpretation Comments CERULO (test code = 3844728509) 55 mg/dL 25-63 Lab Interpretation (test code = Normal 19277-9) [facility] CypressAMMONIA, [id number] 17:29:00 Test Item Value Reference Range Interpretation Comments AMMONIA (test code = 4974809469) <9 9-33 L Lab Interpretation (test code = Abnormal 32217-8) [facility] CypressBLOOD CULTURE [id number] 17:07:00 Test Item Value Reference Range Interpretation Comments Blood Culture-Aerobic Culture positive. No growth AA P revious (test code = 47940-0) See Blood Culture p reliminary Workup for verified result additional was Culture In information. Progress on 01/31/2020 at 1701 CDTPreviou s preliminary verified result was No growth a t 24 hours on 02/01/2020 at 1401 CDT Blood No organisms No growth Previous Culture-Anaerobic isolated preliminar y (test code = 04600-8) verifi ed result was Culture In Progress on 01/31/2020 at 1701 CDTPreviou s preliminary verified result was No growth a t 24 hours on 02/01/2020 at 1401 CDT Lab Interpretation Abnormal (test code = 92550-0) [facility] CypressBLOOD CULTURE [id number] 17:07:00 Test Item Value Reference Range Interpretation [...] no longer being reported. [facility] CypressCREATINE [id number] 10:44:00 Test Item Value Reference Range Interpretation Comments CK (test code = 1872457980) 21 U/L 33-194 L Lab Interpretation (test code = Abnormal 50618-0) [facility]ressN-TERMINAL [id number] 09:34:00 Test Item Value Reference Range Interpretation Comments NT-proBNP (test code 850 pg/mL See_Comment H [Autom ated = 2247921186) message] The system which generated this result transmitted reference range : <=125. The reference range was not used to interpret this result as normal/abnormal . KIM (test code = KIM) Biotin has been reported to cause a negative bias, interpret results relative to patient's use of biotin. Lab Interpretation Abnormal (test code = 56982-2) [facility]. METABOLIC PANEL (42649)2020-02-03 09:26:00 Test Item Value Reference Range Interpretation Comments NA (test code = 136 mmol/L 135-145 8879327054) K (test code = 3.6 mmol/L 3.5-5 2125063960) CL (test code = 104 mmol/L 98-108 7908053911) CO2 TOTAL (test code = 28 mmol/L 23-31 5164857691) AGAP (test code = 2-16 0249408473) BUN (test code = 7 mg/dL 7-23 8060165995) GLUCOSE (test code = 138 mg/dL 70-110 H 4550167719) CREATININE (test code = 0.61 mg/dL 0.5-1.04 8174496376) TOTAL BILI (test code = 1.0 mg/dL 0.1-1.5 1488584229) CALCIUM (test code = 9.2 mg/dL 8.6-10.6 7330800782) T PROTEIN (test code = 6.6 g/dL 6.3-8.2 0648123293) ALBUMIN (test code = 3.5 g/dL 3.5-5 1774962187) ALK PHOS (test code = 584 U/L 34-122 H 7821930444) ALTv (test code = 131 U/L 5-35 H 1742-6) AST(SGOT) (test code = 49 U/L 13-40 H 4188369040) eGFR Calculation mL/min/1.73m2 (Non-) (test code = 8030536033) eGFR Calculation mL/min/1.73m2 () (test code = 8845902831) KIM (test code = KIM) Association of [...] tests). Lab Interpretation Abnormal (test code = 24472-4) [facility]ressMAGNESIUM2020-10-21 09:26:00 Test Item Value Reference Range Interpretation Comments MAGNESIUM (test code = 6248066444) 1.7 mg/dL 1.7-2.4 Lab Interpretation (test code = Normal 90303-5) [facility] CypressPHOSPHORUS2020-10-21 09:26:00 Test Item Value Reference Range Interpretation Comments PHOSPHORUS (test code = 2845867195) 4.1 mg/dL 2.5-5 Lab Interpretation (test code = Normal 73033-3) [facility] CypressURIC [id number] 09:26:00 Test Item Value Reference Range Interpretation Comments URIC ACID (test code = 0603224516) 3.4 mg/dL 2.9-6 Lab Interpretation (test code = Normal 72515-8) [facility] WITH [id number] 08:58:00 Test Item Value Reference Range Interpretation [...] RDW-SD (test code = 47.2 fL 39-49.9 15083-4) RDW-CV (test code = 13.2 % 12-15.5 788-0) PLT (test code = See_Comment [Automated 777-3) message] The sy stem which generated this result transmitted reference range : 166 - 358 10*3/ ?L. The reference r luca was not used to interpret this result as normal/abnormal . MPV (test code = 8.7 fL 9.5-12.9 L 81364-4) NRBC/100 WBC (test See_Comment [Automat ed code = 3368150889) message] The system which generated this result transmitted reference range : 0.0 - 10.0 /100 WBCs. The refer ence range was not u sed to interpret th is result as normal/abnormal . NRBC x10^3 (test code <0.01 See_Comment [Auto mated = 4749697616) message] The s ystem which generated this result transmitted reference range : 10*3/?L. The reference range was not used to interpret this result as normal/abnormal . GRAN MAT (NEUT) % 78.4 % (test code = 770-8) IMM GRAN % (test code 0.50 % = 3437404970) LYMPH % (test code = 12.5 % 736-9) MONO % (test code = 6.1 % 5905-5) EOS % (test code = 2.1 % 713-8) BASO % (test code = 0.4 % 706-2) GRAN MAT x10^3(ANC) 6.43 10*3/uL 1.88-7.09 (test code = 6943056504) IMM GRAN x10^3 (test 0.04 10*3/uL 0-0.06 code = 6615290086) LYMPH x10^3 (test code 1.02 10*3/uL 1.32-3.29 L = 731-0) MONO x10^3 (test code 0.50 10*3/uL 0.33-0.92 = 742-7) EOS x10^3 (test code = 0.17 10*3/uL 0.03-0.39 711-2) BASO x10^3 (test code 0.03 10*3/uL 0.01-0.07 = 704-7) Lab Interpretation Abnormal (test code = 89719-9) [facility] CypressVALPROIC ACID, [id number] 05:42:00 Test Item Value Reference Range Interpretation Comments Valproic Acid, Free <2.0 4-15 L (test code = 3226452810) KIM (test code = KIM) Toxic Range: ? Greater than 15 ug/mL Test developed and characteristics determined by [facility] Laboratory Services. Lab Interpretation Abnormal (test code = 81452-6) [facility] CypressHAV ANTIBODY (IGG AND IGM)2020-02-03 04:20:00 Test Item Value Reference Range Interpretation Comments HAV Total (test code Positive = 6687500023) HAVT Semi-Quantitative (test code = 7181783840) KIM (test code = KIM) Indicates past or present infection with HAV or exposure to HAV due to vaccination. [facility] CypressHEPATITIS B SURFACE [id number] 04:12:00 Test Item Value Reference Range Interpretation Comments HBsAB (test code = Negative 1268687543) HBsAb mIU/mL Semi-Quantitative (test code = 0474564504) KIM (test code = Interpretation: KIM) ?Hepatitis B Surface Antibody ? Negative - Patient is considered to be not immune to infection with HBV. ? ? Positive - Anti-HBs detected at greater than or equal to 12 mIU/mL. ?Patient is considered to be immune to infection with HBV. ? [facility] CypressHCV [id number] 04:12:00 Test Item Value Reference Range Interpretation Comments HCV Ab (test code = 19516-8) Negative HCV Semi-Quantitative (test code = 78588-8) [facility] CypressHEPATITIS B SURFACE [id number] 03:55:00 Test Item Value Reference Range Interpretation Comments HBsAg Semi-Quantitative (test code = Negative Negative 5195-3) [facility] CypressPROCALCITONIN2020-10-21 03:54:00 Test Item Value Reference Range Interpretation Comments Procalcitonin (test 0.05 ng/mL <0.07 code = 2855726545) KIM (test code = KIM) INTERPRETATION OF [...] lung abscess/empyema. For further information please refer to:[email or web address] Lab Interpretation Normal (test code = 39447-6) [facility] CypressGLYCOSYLATED HEMOGLOBIN (A1C)2020-02-02 22:47:00 Test Item Value Reference Range Interpretation Comments HGB A1C (test code = 4.5 % 4-6 4548-4) KIM (test code = KIM) %A1C (NGSP) Interpretation (ADA)4.8-5.6 ? ? Normal or (Non-Diabetic Range)5.7-6.4 ? ? Increased Risk (Pre-Diabetic)>6.5 ?Diabetes Indicated Lab Interpretation Normal (test code = 54843-6) [facility] CypressVALPROIC ACID, [id number] 22:28:00 Test Item Value Reference Range Interpretation Comments VALPROIC A (test code = <10 50-100 L 9211035143) KIM (test code = KIM) Toxic Range: ?Greater than 100 ug/mL Lab Interpretation (test Abnormal code = 04126-9) [facility] CypressLIPID PANEL (58387)(TOTAL CHOLESTEROL, TRIGLYCERIDES, HDL)2020-02-02 21:23:00 Test Item Value Reference Range Interpretation Comments CHOL (test code = 343 mg/dL 120-200 H 3199263051) HDL (test code = 87 mg/dL >50 4439647807) HDLC RATIO (test code = See_Comment [Au tomated message] 2422757538) The system [employer] generated this result transmit gulshan reference range : <=4.5. The refe rence range was not u sed to interpret th is result as normal/abnormal . TRIG (test code = 131 mg/dL 30-170 6769160667) LDL CHOL (test code = 230 mg/dL See_Comment H [Auto mated message] 23637-6) The system [employer] generated this result transmit gulshan reference range : <=160. The refe rence range was not u sed to interpret th is result as normal/abnormal . VLDL (test code = 26 mg/dL 5-60 2124215616) Lab Interpretation (test Abnormal code = 52359-0) [facility] CypressPROTHROMBIN TIME / [id number] 21:16:00 Test Item Value Reference Range Interpretation Comments PROTIME PATIENT (test See_Comment [Auto mated message] code = 5964-2) The system [employer] generated this result transmitted ref erence range: 12.0 - 1 4.7 Seconds. The re ference range was not u sed to interpret this result as normal/abnor mal. INR (test code = 6301-6) Nor mal INR <1.1; Warfarin Therap eutic range 2.0 to 3. 0 or 2.5 to 3.5, dep ending upon the indica tions. Lab Interpretation (test Normal code = 67734-8) [facility] CypressCREATINE [id number] 21:15:00 Test Item Value Reference Range Interpretation Comments CK (test code = 7571008162) 37 U/L 33-194 Lab Interpretation (test code = Normal 77334-3) [facility] CypressLIPASE2020-10-20 12:34:00 Test Item Value Reference Range Interpretation Comments LIPASE (test code = 9198239589) 203 U/L 0-220 Lab Interpretation (test code = Normal 66637-2) [facility] CypressCOM. METABOLIC PANEL (40846)2020-02-02 12:34:00 Test Item Value Reference Range Interpretation Comments NA (test code = 135 mmol/L 135-145 2242488250) K (test code = 3.5 mmol/L 3.5-5 7117413664) CL (test code = 103 mmol/L 98-108 7093159003) CO2 TOTAL (test code = 25 mmol/L 23-31 3952681267) AGAP (test code = 2-16 4779724643) BUN (test code = 8 mg/dL 7-23 6206672342) GLUCOSE (test code = 148 mg/dL 70-110 H 1631461281) CREATININE (test code = 0.55 mg/dL 0.5-1.04 3748902530) TOTAL BILI (test code = 1.2 mg/dL 0.1-1.1 H 7619690952) CALCIUM (test code = 9.4 mg/dL 8.6-10.6 5130132522) T PROTEIN (test code = 6.9 g/dL 6.3-8.2 7029846252) ALBUMIN (test code = 3.6 g/dL 3.5-5 9024145022) ALK PHOS (test code = 723 U/L 34-122 H 4163025592) ALTv (test code = 166 U/L 5-35 H 1742-6) AST(SGOT) (test code = 72 U/L 13-40 H 8848897412) eGFR Calculation mL/min/1.73m2 (Non-) (test code = 3311522309) eGFR Calculation mL/min/1.73m2 () (test code = 3147132929) KIM (test code = KIM) Association of [...] tests). Lab Interpretation Abnormal (test code = 31783-5) [facility] CypressLITHIUM2020-10-20 12:32:00 Test Item Value Reference Range Interpretation Comments Kihei (test code = 0.4 mmol/L 0.6-1.2 L 4186921186) KIM (test code = KIM) Toxic Range: ? Greater than 1.2 mmol/L Lab Interpretation (test Abnormal code = 12430-9) [facility] CypressPOCT GLUCOSE (AUTOMATED)2020-02-02 11:34:00 Test Item Value Reference Range Interpretation Comments POCT GLU (test code = 3276820474) 138 mg/dL 70-110 H Lab Interpretation (test code = Abnormal 66394-4) [facility] CypressCOMP. METABOLIC PANEL (45601)2020-02-02 10:51:00 Test Item Value Reference Range Interpretation Comments NA (test code = 129 mmol/L 135-145 L 5036575163) K (test code = 3.0 mmol/L 3.5-5 L 8539617558) CL (test code = 100 mmol/L 98-108 6453946024) CO2 TOTAL (test code = 22 mmol/L 23-31 L 7234861133) AGAP (test code = 2-16 9459539555) BUN (test code = 8 mg/dL 7-23 4593258659) GLUCOSE (test code = 632 mg/dL 70-110 HH 2556939389) CREATININE (test code = 0.54 mg/dL 0.5-1.04 7377767230) TOTAL BILI (test code = 1.0 mg/dL 0.1-1.4 7781269017) CALCIUM (test code = 7.9 mg/dL 8.6-10.6 L 9447089105) T PROTEIN (test code = 5.3 g/dL 6.3-8.2 L 5781305094) ALBUMIN (test code = 2.7 g/dL 3.5-5 L 0254346843) ALK PHOS (test code = 562 U/L 34-122 H 8297534286) ALTv (test code = 138 U/L 5-35 H 1742-6) AST(SGOT) (test code = 61 U/L 13-40 H 2912194726) eGFR Calculation mL/min/1.73m2 (Non-) (test code = 5746977626) eGFR Calculation mL/min/1.73m2 () (test code = 0001414114) KIM (test code = KIM) Association of [...] tests). Lab Interpretation Abnormal (test code = 75087-5) [facility] CypressLIPASE2020-10-20 10:40:00 Test Item Value Reference Range Interpretation Comments LIPASE (test code = 0648302317) 140 U/L 0-220 Lab Interpretation (test code = Normal 46565-8) [facility] CypressLITHIUM2020-10-20 10:37:00 Test Item Value Reference Range Interpretation Comments Kihei (test code = 0.5 mmol/L 0.6-1.2 L 2625993865) KIM (test code = KIM) Toxic Range: ? Greater than 1.2 mmol/L Lab Interpretation (test Abnormal code = 91825-8) [facility] CypressCB WITH [id number] 09:57:00 Test Item Value Reference Range Interpretation [...] RDW-SD (test code = 47.2 fL 39-49.9 82382-0) RDW-CV (test code = 13.1 % 12-15.5 788-0) PLT (test code = See_Comment [Automated 777-3) message] The sy stem which generated this result transmitted reference range : 166 - 358 10*3/ ?L. The reference r luca was not used to interpret this result as normal/abnormal . MPV (test code = 9.7 fL 9.5-12.9 74797-9) NRBC/100 WBC (test See_Comment [Automat ed code = 2845217290) message] The system which generated this result transmitted reference range : 0.0 - 10.0 /100 WBCs. The refer ence range was not u sed to interpret th is result as normal/abnormal . NRBC x10^3 (test code <0.01 See_Comment [Auto mated = 2944138621) message] The s ystem which generated this result transmitted reference range : 10*3/?L. The reference range was not used to interpret this result as normal/abnormal . GRAN MAT (NEUT) % 78.6 % (test code = 770-8) IMM GRAN % (test code 0.50 % = 7630497122) LYMPH % (test code = 13.1 % 736-9) MONO % (test code = 5.5 % 5905-5) EOS % (test code = 2.0 % 713-8) BASO % (test code = 0.3 % 706-2) GRAN MAT x10^3(ANC) 5.18 10*3/uL 1.88-7.09 (test code = 5960317583) IMM GRAN x10^3 (test 0.03 10*3/uL 0-0.06 code = 5217244850) LYMPH x10^3 (test code 0.86 10*3/uL 1.32-3.29 L = 731-0) MONO x10^3 (test code 0.36 10*3/uL 0.33-0.92 = 742-7) EOS x10^3 (test code = 0.13 10*3/uL 0.03-0.39 711-2) BASO x10^3 (test code <0.03 0.01-0.07 = 704-7) Lab Interpretation Abnormal (test code = 95834-4) [facility] CypressGRAM POSITIVE BLOOD PATHOGENS DNA [id number] 06:56:00 Test Item Value Reference Range Interpretation Comments Coagulase Negative Positive Negative, See A Staphylococcus (test Comment/Narrative code = 38984-2) KIM (test code = KIM) Coagulase negative [...] contact the Antimicrobial Stewardship Program with questions.Pager: ?[phone] Testing included eleven identification and three resistance marker targets. Lab Interpretation Abnormal (test code = 35772-2) [facility] CypressLAB ONLY COVID [id number] 20:46:00COVID DMT InterpretationInterpretation/Recommendations\\nTests (PCR) for Active Infection [...] test is performed there is approximately a mjr-bf-tfwrn chance the patient had been infected and [...] [facility] SERVICESCOVID OftjwyeUTPU-EmK-2 Rapid ID NOW (no units) ? ? Date ? Value ? 01/31/2020 ? Not Detected ? ? ? 08/21/2019 ? Not Detected ? [facility] SERVICESUn[facility] C[facility] VENOUS BLOOD [id number] 19:37:00 Test Item Value Reference Range Interpretation Comments PH (test code = 7.32-7.42 L 2444962843) PCO2 SANDHYA (test code = See_Comment [Auto mated message] 5794020670) The system [employer] generated this result transmitted ref erence range: 41 - 51 mmHg. The reference r luca was not used to interpret this result as normal/abnor mal. PO2 SANDHYA (test code = See_Comment HH [Autom ated message] 3003267650) The system [employer] generated this result transmitted ref erence range: 25 - 40 mmHg. The reference r luca was not used to interpret this result as normal/abnor mal. HCO3 SANDHYA (test code = See_Comment L [Auto mated message] 1327561245) The system [employer] generated this result transmitted ref erence range: 24 - 28 mEq/L. The reference r luca was not used to interpret this result as normal/abnor mal. AC VBE(BEAKER) (test mEq/L code = 7891740894) Lab Interpretation (test Abnormal code = 90354-6) [facility] ABDOMEN [id number] 17:02:17 No sonographic findings to explain patient's [...] atrophyor cortical thinning. No hydronephrosis.[facility] CypressUrine [id number] 16:35:00 Test Item Value Reference Range Interpretation Comments URINE CULTURE (test No aerobic growth (< code = 630-4) 1000 CFU/mL) [facility] CypressDIFF CONSULT [id number] 15:41:00 MATURE LEUKOCYTES WITH REACTIVE LYMPHOCYTES, REACTIVE MONOCYTES AND OCCASIONAL TOXIC NEUTROPHILS. RARE HYPERSEGMENTED NEUTROPHILS. MACROCYTIC ANEMIA WITH POLYCHROMASIA AND POIKILOCYTOSIS INCLUDING BURRCELLS AND TARGET CELLS. THESE CHANGES ARE SUGGESTIVE OF EARLY VITAMIN B12 DEFICIENCY ANEMIA. AMPLE PLATELETS. [facility] CypressPODE GLUCOSE (AUTOMATED)2020-02-01 13:06:00 Test Item Value Reference Range Interpretation Comments POCT GLU (test code = 3583408667) 104 mg/dL 70-110 Lab Interpretation (test code = Normal 41705-9) [facility] CypressCOMP. METABOLIC PANEL (35175)2020-02-01 13:00:00 Test Item Value Reference Range Interpretation Comments NA (test code = 139 mmol/L 135-145 1444806559) K (test code = 4.1 mmol/L 3.5-5 6847382288) CL (test code = 112 mmol/L 98-108 H 6799607936) CO2 TOTAL (test code = 20 mmol/L 23-31 L 8237791299) AGAP (test code = 2-16 4082007132) BUN (test code = 16 mg/dL 7-23 9974848463) GLUCOSE (test code = 99 mg/dL 70-110 6640040299) CREATININE (test code = 0.85 mg/dL 0.5-1.04 4514388353) TOTAL BILI (test code = 1.3 mg/dL 0.1-1.1 H 9680160426) CALCIUM (test code = 8.6 mg/dL 8.6-10.6 6612910478) T PROTEIN (test code = 6.2 g/dL 6.3-8.2 L 0613517088) ALBUMIN (test code = 3.2 g/dL 3.5-5 L 8967515678) ALK PHOS (test code = 646 U/L 34-122 H 3763044141) ALTv (test code = 209 U/L 5-35 H 1742-6) AST(SGOT) (test code = 110 U/L 13-40 H 4983534056) eGFR Calculation mL/min/1.73m2 (Non-) (test code = 3591558718) eGFR Calculation mL/min/1.73m2 () (test code = 9350956894) KIM (test code = KIM) Association of [...] tests). Lab Interpretation Abnormal (test code = 15091-2) [facility] CypressLIPASE2020-10-19 11:07:00 Test Item Value Reference Range Interpretation Comments LIPASE (test code = 0863560339) 353 U/L 0-220 H Lab Interpretation (test code = Abnormal 54471-2) [facility] CypressLITHIUM2020-10-19 11:05:00 Test Item Value Reference Range Interpretation Comments Kihei (test code = 1.0 mmol/L 0.6-1.2 5122529162) KIM (test code = KIM) Toxic Range: ? Greater than 1.2 mmol/L Lab Interpretation (test Normal code = 83697-5) [facility] CypressCB with [id number] 10:56:00 Test Item Value Reference Range Interpretation [...] RDW-SD (test code = 49.7 fL 39-49.9 61874-2) RDW-CV (test code = 13.2 % 12-15.5 788-0) PLT (test code = See_Comment L [Automated 777-3) message] The sy stem which generated this result transmitted reference range : 166 - 358 10*3/ ?L. The reference r luca was not used to interpret this result as normal/abnormal . MPV (test code = 9.7 fL 9.5-12.9 09604-6) NRBC/100 WBC (test See_Comment [Automat ed code = 9778846263) message] The system which generated this result transmitted reference range : 0.0 - 10.0 /100 WBCs. The refer ence range was not u sed to interpret th is result as normal/abnormal . NRBC x10^3 (test code <0.01 See_Comment [Auto mated = 1294383695) message] The s ystem which generated this result transmitted reference range : 10*3/?L. The reference range was not used to interpret this result as normal/abnormal . GRAN MAT (NEUT) % 79.3 % (test code = 770-8) IMM GRAN % (test code 0.40 % = 6622052745) LYMPH % (test code = 11.4 % 736-9) MONO % (test code = 6.1 % 5905-5) EOS % (test code = 2.6 % 713-8) BASO % (test code = 0.2 % 706-2) GRAN MAT x10^3(ANC) 4.30 10*3/uL 1.88-7.09 (test code = 9320192578) IMM GRAN x10^3 (test <0.03 0-0.06 code = 7722102710) LYMPH x10^3 (test code 0.62 10*3/uL 1.32-3.29 L = 731-0) MONO x10^3 (test code 0.33 10*3/uL 0.33-0.92 = 742-7) EOS x10^3 (test code = 0.14 10*3/uL 0.03-0.39 711-2) BASO x10^3 (test code <0.03 0.01-0.07 = 704-7) Lab Interpretation Abnormal (test code = 04214-5) [facility] - [id number] 09:27:00 Test Item Value Reference Range Interpretation Comments RPR (Qualitative) (test code = Nonreactive Nonreactive 94306-5) Lab Interpretation (test code = Normal 90457-5) [facility]IT[facility] B12, [id number] 06:47:00 Test Item Value Reference Range Interpretation Comments VIT B12 (test code = 257 pg/mL 240-930 8818321498) KIM (test code = KIM) Biotin has been reported to cause a positive bias, interpret results relative to patient's use of biotin. Lab Interpretation (test Normal code = 27798-3) [facility]FOLATE2020-10-19 06:46:00 Test Item Value Reference Range Interpretation Comments FOLATE SER (test code = 15.7 ng/mL 3-20 Biot in has been 3646952854) reported to cau se a positive bias, interpret resul ts relative to patient's use o f biotin. Lab Interpretation (test Normal code = 03444-9) [facility]ressOSMOLALITY [id number] 05:47:00 Test Item Value Reference Range Interpretation Comments OSMOLALITY (test code = See_Comment [Au tomated message] 7905894627) The system [employer] generated this result transmitted ref erence range: 278 - 30 5 mOsm/kg. The re ference range was not u sed to interpret this result as normal/abnor mal. Lab Interpretation (test Normal code = 12199-0) [facility]ressFERRITIN [id number] 01:01:00 Test Item Value Reference Range Interpretation Comments FERRITIN (test code = 234.0 ng/mL 11-264 0795955844) KIM (test code = KIM) Biotin has been reported to cause a negative bias, interpret results relative to patient's use of biotin. Lab Interpretation (test Normal code = 93751-8) [facility]ressTHYROID STIMULATING [id number] 23:14:00 Test Item Value Reference Range Interpretation Comments TSH (test code = See_Comment Biotin has been 3937022196) reported to cau se a negative bias, interpret resul ts relative to pat ient's use of biotin. [Automated mess age] The system [employer] generated this result transmitted ref erence range: 0.45 - 4 .70 mIU/L. The refe rence range was not u sed to interpret this result as normal/abnor mal. Lab Interpretation (test Normal code = 11398-0) [facility]ressIRON [id number] 22:39:00 Test Item Value Reference Range Interpretation Comments IRON (test code = 68 ug/dL 50-160 Slight hem olysis 6112245645) TIBC (test code = 271 ug/dL 250-410 6612560529) % FE SAT (test code = 25 % 20-50 7307575215) Lab Interpretation (test Normal code = 66722-7) [facility] CypressRETICULOCYTES [id number] 21:52:00 Test Item Value Reference Range Interpretation Comments RETIC Count Automated 2.17 % 0.51-1.9 H (test code = 8766004101) RETIC Absolute Count See_Comment [Autom ated message] (test code = 0112920967) The system which generated this result transmitted ref erence range: 0.0230 - 0.0950 10*6/?L. The reference range was not used to int erpret this result as normal/abnormal . IRF % (test code = 9.20 % 2.1-12.6 4339595453) RETIC-HE (test code = 35.1 pg 28.1-35.8 3400569170) Lab Interpretation (test Abnormal code = 18452-7) [facility]ressABG+COOX+NA+K+GLU+CA2+2020-01-31 20:41:00 Test Item Value Reference Range Interpretation Comments PH (test code = 2) 7.35-7.45 L PCO2 (test code = See_Comment H [Automate d message] 8569625944) The system [employer] generated this result transmit gulshan reference range : 35 - 45 mmHg. The reference range was not used to interpret this result as normal/abnormal . PO2 (test code = See_Comment L [Automated message] 1078415240) The system [employer] generated this result transmit gulshan reference range : 80 - 100 mmHg. The reference range was not used to interpret this result as normal/abnormal . HCO3 (test code = See_Comment L [Automate d message] 1081216941) The system [employer] generated this result transmit gulshan reference range : 22 - 26 mEq/L. The reference range was not used to interpret this result as normal/abnormal . BE (test code = See_Comment L [Automated message] 6175424762) The system [employer] generated this result transmit gulshan reference range : -3.0 - 3.0 mEq/ L. The reference r luca was not used to interpret this result as normal/abnormal . THB (test code = 9.8 g/dL 12-16 L 4004612326) %O2HB (test code = 94.0 % 94-99 1052600006) %COHB ART (test code = 0.0 % 0-1.5 4806955398) %METHB ART (test code = 0.3 % 0.4-1.5 L 0777542890) VOL%O2 ART (test code = 13.0 % 15-23 L 7950405670) NA (test code = 137 mmol/L 135-145 9767846126) K+ (test code = 4.0 mmol/L 3.5-5 5633808107) AC CA IONZ (test code = 5.10 mg/dL 4.5-5.3 6744112573) GLUCOSE (test code = 100 mg/dL 70-110 6430210161) Lab Interpretation Abnormal (test code = 35820-4) [facility]ressVALPROIC ACID, [id number] 19:51:00 Test Item Value Reference Range Interpretation Comments VALPROIC A (test code = <10 50-100 L 1976726743) KIM (test code = KIM) Toxic Range: ?Greater than 100 ug/mL Lab Interpretation (test Abnormal code = 81116-6) [facility]ressACETAMINOPHEN2020-10-18 19:42:00 Test Item Value Reference Range Interpretation Comments ACETAMINOP (test code = <10.0 10-30 L 6549241559) KIM (test code = KIM) Toxic: Greater than 200 ug/mL @ 4 hour post ingestion or greater than 50 ug/mL @ 12 hour post ingestion Lab Interpretation (test Abnormal code = 09198-6) [facility]ressLITHIUM2020-10-18 19:41:00 Test Item Value Reference Range Interpretation Comments Kihei (test code = 1.4 mmol/L 0.6-1.2 H 1834057690) KIM (test code = KIM) Toxic Range: ? Greater than 1.2 mmol/L Lab Interpretation (test Abnormal code = 15170-4) [facility]ressSALICYLATE2020-10-18 19:41:00 Test Item Value Reference Range Interpretation Comments SALICYLATE (test code <10 mg/L = 2019263676) KIM (test code = KIM) Therapeutic Range: ? Analgesic and Antipyretic Use ? 20-100 mg/L ? ? Anti-Inflammatory Use ? 100-250 mg/L Toxic Range: ? Greater than 300 mg/L [facility] 1 [id number] 17:46:20Impression: No acute cardiopulmonary disease. RL: ?2601 AFC: ?[id number] Chest, one view History: ?AMS . Altered [...] lungs.IMPRESSIONImpression: No acute cardiopulmonary disease. RL: 2601AFC: [id number] signed by Gatito Saul MD at 01/31/2020 12:46 [facility]Un[facility]Abdomen 1 [id number] 17:42:04 1. Nonobstructive intestinal bowel gas pattern. RL: ?2601 AFC: ?55941 CLINICAL INFORMATION: Abdominal pain. Altered state of [...] bowel.IMPRESSION1. Nonobstructive intestinal bowel gas pattern.RL: 2601AFC: [id number] signed by Gatito Saul MD at 01/31/2020 12:42 PM [facility]ressETHANOL2020-10-18 17:40:00 Test Item Value Reference Range Interpretation Comments ALCOHOL (test code = <10 mg/dL 8841160223) KIM (test code = KIM) <10 Vtzyvvcy28-930 Toxic>100 Depression of EVALUATION ASSISTANT>400 Fatalities Reported [facility] CypressCREATINE [id number] 17:38:00 Test Item Value Reference Range Interpretation Comments CK (test code = 8683737305) 46 U/L 33-194 Slight hemolysis Lab Interpretation (test code Normal = 14868-6) [facility] CypressCT Head W/O [id number] 17:05:24 Impression: 1. ?No acute intracranial process. [...] No acute intracranial process.2. Small right mastoid effusion.[facility]ADC / [facility] [id number] 16:57:00 Test Item Value Reference Range Interpretation Comments BENZO U (test code = Presumptive Negative A 2733481075) Positive INGA U (test code = Negative Negative 6575947823) AMPHET (test code = Negative Negative 7628486146) THC (test code = Negative Negative 3497830913) METHADONE (test code Negative Negative = 6026365843) Meth U (test code = Negative Negative 8569572820) OPIATES (test code = Negative Negative 1936134133) Cocaine Metabolite Negative Negative (test code = 5724809449) PROPOXY (test code = Negative Negative 6040598636) Tric U (test code = Presumptive Negative A Confirma tion of 3145878843) Positive Presumptive Positive TCA result requires physician order and this will b e sent to referen ce lab. PCP (test code = Negative Negative 0985487166) OXYCOD (test code = Negative Negative 1882283024) KIM (test code = Urine Drug Cutoff [...] testing). Lab Interpretation Abnormal (test code = 55456-8) [facility] CypressUrinalysis2020-10-18 16:54:00 Test Item Value Reference Range Interpretation Comments APPEARANCE (test code = Hazy Clear A 3407367534) COLOR (test code = Lisa Yellow A 2689668021) PH (test code = 4.8-8.0 6270319163) SP GRAVITY (test code = 1.003-1.030 9777079901) GLU U QUAL (test code = Normal Normal 2638349297) BLOOD (test code = Negative Negative 2125432769) KETONES (test code = Negative Negative 1777366652) PROTEIN (test code = 30 mg/dL Negative A 2887-8) UROBILIN (test code = 4.0 mg/dL Normal A 4394287582) BILIRUBIN (test code = Negative Negative 6852935476) NITRITE (test code = Negative Negative 4108027133) LEUK NICHOLE (test code = 25/uL Negative A 3432432112) RBC/HPF (test code = See_Comment [Autom ated message] 7267012612) The system [employer] generated this result transmit gulshan reference range : 0 - 3 HPF. The refe rence range was not u sed to interpret th is result as normal/abnormal . WBC/HPF (test code = See_Comment H [Autom ated message] 1716329701) The system [employer] generated this result transmit gulshan reference range : 0 - 5 HPF. The refe rence range was not u sed to interpret th is result as normal/abnormal . BACTERIA (test code = Few Negative A 3202857354) MUCOUS (test code = Moderate Negative LPF A 9392902865) SQ EPITH (test code = HPF 0215482647) HYAL CAST (test code = See_Comment H [Aut omated message] 3581881548) The system [employer] generated this result transmit gulshan reference range : <=2 LPF. The refere nce range was not u sed to interpret th is result as normal/abnormal . GRAN CASTS (test code = See_Comment H [Au tomated message] 1044829589) The system [employer] generated this result transmit gulshan reference range : <=1 LPF. The refere nce range was not u sed to interpret th is result as normal/abnormal . Lab Interpretation (test Abnormal code = 71626-4) [facility]ressCOVID-19 (ID NOW RAPID TESTING)2020-01-31 16:39:00 Test Item Value Reference Range Interpretation Comments SARS-CoV-2 Rapid ID NOW Not Detected Not Detected (test code = 91464-4) KIM (test code = KIM) ID NOW COVID-19 Assay is an isothermal nucleic acid amplification test intended for the qualitative detection of nucleic acid from SARS-CoV-2 viral RNA in nasopharyngeal (MECHANIC RECOVERY) specimens. It is used under Emergency Use [...] indicated. Lab Interpretation Normal (test code = 97732-6) [facility] CypressTroponin [id number] 16:38:00 Test Item Value Reference Range Interpretation Comments TROPONIN I (test <0.012 See_Comment [Automated code = 1121269215) message] The system which generated this result [...] ? Lab Interpretation Normal (test code = 90741-4) [facility] CypressN-TERMINAL [id number] 16:34:00 Test Item Value Reference Range Interpretation Comments NT-proBNP (test code 283 pg/mL See_Comment H [Autom ated = 5509945152) message] The system which generated this result transmitted reference range : <=125. The reference range was not used to interpret this result as normal/abnormal . KIM (test code = KIM) Biotin has been reported to cause a negative bias, interpret results relative to patient's use of biotin. Lab Interpretation Abnormal (test code = 04964-2) [facility] Metabolic Panel (NA, K, CL, CO2, GLUCOSE, BUN, CREATININE, CA)2020-01-31 16:26:00 Test Item Value Reference Range Interpretation Comments NA (test code = 134 mmol/L 135-145 L 2639007873) K (test code = 4.9 mmol/L 3.5-5 6644673547) CL (test code = 107 mmol/L 98-108 2019893013) CO2 TOTAL (test code = 19 mmol/L 23-31 L 4695938813) AGAP (test code = 2-16 5207117279) BUN (test code = 30 mg/dL 7-23 H 9817718876) GLUCOSE (test code = 106 mg/dL 70-110 3572032005) CREATININE (test code = 2.21 mg/dL 0.5-1.04 H 4742062829) CALCIUM (test code = 9.5 mg/dL 8.6-10.6 1875439537) eGFR Calculation mL/min/1.73m2 (Non-) (test code = 9696583281) eGFR Calculation mL/min/1.73m2 () (test code = 7200776727) KIM (test code = KIM) Association of [...] tests). Lab Interpretation Abnormal (test code = 35887-0) [facility]ressHepatic Function Panel (ALB, T.PRO, BILI T, BU/BC, ALT, AST, ALK PHOS)2020-01-31 16:26:00 Test Item Value Reference Range Interpretation Comments TOTAL BILI (test code = 7523344159) 1.5 mg/dL 0.1-1.1 H BILI UNCON (test code = 7392068603) 0.4 mg/dL 0.1-1.1 BILI CONJ (test code = 4993147089) 0.0 mg/dL 0-0.3 T PROTEIN (test code = 8491477641) 8.0 g/dL 6.3-8.2 ALBUMIN (test code = 6547391385) 4.0 g/dL 3.5-5 ALK PHOS (test code = 1436395671) 714 U/L 34-122 H ALTv (test code = 1742-6) 352 U/L 5-35 H AST(SGOT) (test code = 1690471052) 256 U/L 13-40 H Lab Interpretation (test code = Abnormal 51172-9) [facility] CypressLipase [id number] 16:26:00 Test Item Value Reference Range Interpretation Comments LIPASE (test code = 2074128778) 410 U/L 0-220 H Lab Interpretation (test code = Abnormal 26390-8) [facility] CypressAMMONIA, [id number] 16:25:00 Test Item Value Reference Range Interpretation Comments AMMONIA (test code = 32 umol/L 9-33 Slight hemolysis 1320359108) Lab Interpretation (test Normal code = 55301-9) [facility] with [id number] 16:13:00 Test Item Value Reference Range Interpretation [...] (test code = 51.4 fL 39-49.9 H 40144-1) RDW-CV (test code = 13.7 % 12-15.5 788-0) PLT (test code = See_Comment [Automated 777-3) message] The sy stem which generated this result transmitted reference range : 166 - 358 10*3/ ?L. The reference r luca was not used to interpret this result as normal/abnormal . MPV (test code = 10.3 fL 9.5-12.9 76157-0) NRBC/100 WBC (test See_Comment [Automat ed code = 9239775928) message] The system which generated this result transmitted reference range : 0.0 - 10.0 /100 WBCs. The refer ence range was not u sed to interpret th is result as normal/abnormal . NRBC x10^3 (test code <0.01 See_Comment [Auto mated = 3079533141) message] The s ystem which generated this result transmitted reference range : 10*3/?L. The reference range was not used to interpret this result as normal/abnormal . GRAN MAT (NEUT) % 77.1 % (test code = 770-8) IMM GRAN % (test code 0.40 % = 1354144251) LYMPH % (test code = 12.2 % 736-9) MONO % (test code = 5.7 % 5905-5) EOS % (test code = 4.3 % 713-8) BASO % (test code = 0.3 % 706-2) GRAN MAT x10^3(ANC) 5.97 10*3/uL 1.88-7.09 (test code = 0664227522) IMM GRAN x10^3 (test 0.03 10*3/uL 0-0.06 code = 0045714856) LYMPH x10^3 (test code 0.94 10*3/uL 1.32-3.29 L = 731-0) MONO x10^3 (test code 0.44 10*3/uL 0.33-0.92 = 742-7) EOS x10^3 (test code = 0.33 10*3/uL 0.03-0.39 711-2) BASO x10^3 (test code <0.03 0.01-0.07 = 704-7) Lab Interpretation Abnormal (test code = 13454-0) [facility] CypressLactic Acid Whole [id number] 16:03:00 Test Item Value Reference Range Interpretation Comments LACTIC ACID (test code = 1.03 mmol/L 0.3-2.6 4285104738) Lab Interpretation (test code = Normal 21612-6) [facility]ressCT ABDOMEN PELVIS W [id number] 23:00:141. ?Mild circumferential urinary bladder wall thickening [...] unchanged since February2019. Recommend MRI/MRCP.[facility] CypressColby [id number] 21:36:00 Test Item Value Reference Range Interpretation Comments TROPONIN I (test <0.012 See_Comment [Automated code = 4590822865) message] The system which generated this result transmitted reference range : <=0.034 ng/mL. The reference range was not used to interpr et this result as normal/abnormal . KMI (test code = Equal or Less than [...] ? Lab Interpretation Normal (test code = 49558-4) [facility] CypressUrinalysis2020-09-04 21:30:00 Test Item Value Reference Range Interpretation Comments APPEARANCE (test code = Clear Clear 3946240208) COLOR (test code = Yellow Yellow 6673532237) PH (test code = 4.8-8.0 8237625786) SP GRAVITY (test code = 1.003-1.030 9292858564) GLU U QUAL (test code = Normal Normal 9424699656) BLOOD (test code = Negative Negative 0613819331) KETONES (test code = Negative Negative 5804899869) PROTEIN (test code = Negative Negative 2887-8) UROBILIN (test code = 4.0 mg/dL Normal A 2622898513) BILIRUBIN (test code = Negative Negative 7403617899) NITRITE (test code = Negative Negative 5821904258) LEUK NICHOLE (test code = Negative Negative 4766349777) RBC/HPF (test code = See_Comment [Autom ated message] 2225541107) The system [employer] generated this result transmit gulshan reference range : 0 - 3 HPF. The refe rence range was not u sed to interpret th is result as normal/abnormal . WBC/HPF (test code = See_Comment [Autom ated message] 2148976473) The system [employer] generated this result transmit gulshan reference range : 0 - 5 HPF. The refe rence range was not u sed to interpret th is result as normal/abnormal . BACTERIA (test code = Few Negative A 0340677953) MUCOUS (test code = Slight Negative LPF A 6069845195) SQ EPITH (test code = HPF 8251998124) HYAL CAST (test code = See_Comment [Aut omated message] 5783625195) The system whic h generated this result transmit gulshan reference range : <=2 LPF. The refere nce range was not u sed to interpret th is result as normal/abnormal . Lab Interpretation (test Abnormal code = 82793-6) [facility] with [id number] 21:29:00 Test Item Value Reference Range Interpretation [...] (test code = 54.6 fL 39-49.9 H 98115-4) RDW-CV (test code = 14.9 % 12-15.5 788-0) PLT (test code = See_Comment L [Automated 777-3) message] The sy stem which generated this result transmitted reference range : 166 - 358 10*3/ ?L. The reference r luca was not used to interpret this result as normal/abnormal . MPV (test code = 9.5 fL 9.5-12.9 37962-3) IPF % (test code = 1.5 % 1.3-7.7 Platelet count 6937721386) measured by fluorescence method. NRBC/100 WBC (test See_Comment [Automat ed code = 1635830189) message] The system which generated this result transmitted reference range : 0.0 - 10.0 /100 WBCs. The refer ence range was not u sed to interpret th is result as normal/abnormal . NRBC x10^3 (test code <0.01 See_Comment [Auto mated = 1324184566) message] The s ystem which generated this result transmitted reference range : 10*3/?L. The reference range was not used to interpret this result as normal/abnormal . GRAN MAT (NEUT) % 64.0 % (test code = 770-8) IMM GRAN % (test code 1.00 % = 3053472980) LYMPH % (test code = 22.5 % 736-9) MONO % (test code = 11.0 % 5905-5) EOS % (test code = 1.0 % 713-8) BASO % (test code = 0.5 % 706-2) GRAN MAT x10^3(ANC) 2.61 10*3/uL 1.88-7.09 (test code = 4580245288) IMM GRAN x10^3 (test 0.04 10*3/uL 0-0.06 code = 4629551246) LYMPH x10^3 (test code 0.92 10*3/uL 1.32-3.29 L = 731-0) MONO x10^3 (test code 0.45 10*3/uL 0.33-0.92 = 742-7) EOS x10^3 (test code = 0.04 10*3/uL 0.03-0.39 711-2) BASO x10^3 (test code <0.03 0.01-0.07 = 704-7) Lab Interpretation Abnormal (test code = 82946-6) [facility] Metabolic Panel (NA, K, CL, CO2, GLUCOSE, BUN, CREATININE, CA)2019-12-18 21:25:00 Test Item Value Reference Range Interpretation Comments NA (test code = 138 mmol/L 135-145 6941103108) K (test code = 4.8 mmol/L 3.5-5 3156124005) CL (test code = 104 mmol/L 98-108 6951885421) CO2 TOTAL (test code = 27 mmol/L 23-31 2354553520) AGAP (test code = 2-16 8299011390) BUN (test code = 12 mg/dL 7-23 2615684676) GLUCOSE (test code = 101 mg/dL 70-110 2300530163) CREATININE (test code 0.70 mg/dL 0.5-1.04 = 1674928479) CALCIUM (test code = 9.3 mg/dL 8.6-10.6 2424412701) eGFR Calculation mL/min/1.73m2 (Non-) (test code = 9794252816) eGFR Calculation mL/min/1.73m2 () (test code = 8895158487) KIM (test code = KIM) Association of [...] abnormalities in imaging tests). [facility]ressHep[facility] Function [facility] (ALB, T.PRO, BILI T, BU/BC, ALT, AST, ALK PHOS)2019-12-18 21:25:00 Test Item Value Reference Range Interpretation Comments TOTAL BILI (test code = 1693752684) 1.0 mg/dL 0.1-1.1 BILI UNCON (test code = 3423408025) 0.6 mg/dL 0.1-1.1 BILI CONJ (test code = 8696917474) 0.0 mg/dL 0-0.3 T PROTEIN (test code = 6161657677) 7.8 g/dL 6.3-8.2 ALBUMIN (test code = 5006037097) 4.3 g/dL 3.5-5 ALK PHOS (test code = 1326275282) 580 U/L 34-122 H ALTv (test code = 1742-6) 199 U/L 5-35 H AST(SGOT) (test code = 5510420400) 215 U/L 13-40 H Lab Interpretation (test code = Abnormal 47554-9) [facility] CypressLipase [id number] 21:25:00 Test Item Value Reference Range Interpretation Comments LIPASE (test code = 2009943051) 267 U/L 0-220 H Lab Interpretation (test code = Abnormal 67664-5) [facility] CypressXR CHEST 1 VW [id number] 02:17:38 No findings suggestive of COVID-19 pneumonia. Disclaimer: Generally, the findings on chest imaging in COVID-19 are notspecific, and overlap with other infections, including influenza, H1N1,SARS and MERS.According to the Centers for Disease Control (CDC) and the [employer], viral testing remains the only [...] Centers for Disease Control (CDC) and the [employer], viral testing remains the only specific method of diagnosiseven if CXR or CT findings are suggestive of COVID-19. Preliminary Report Dictated by Resident: Abe Vasquez, Ritchie Hollins MD., have reviewed this study and agree with the abovereport.[facility] CORONAVIRUS COVID-19 [id number] 02:11:00 Test Item Value Reference Range Interpretation Comments SARS-CoV-2 (test code = Not Detected Not Detected 04682-5) KIM (test code = KIM) ID NOW COVID-19 Assay is an isothermal nucleic acid amplification test intended for the qualitative detection of nucleic acid from SARS-CoV-2 viral RNA in nasopharyngeal (MECHANIC RECOVERY) specimens. It is used under Emergency Use [...] indicated. Lab Interpretation Normal (test code = 42607-7) [facility] CypressTROPONIN [id number] 01:42:00 Test Item Value Reference Range Interpretation Comments TROPONIN I (test <0.012 See_Comment [Automated code = 4997980531) message] The system which generated this result [...] ? Lab Interpretation Normal (test code = 85916-6) [facility]. METABOLIC PANEL (10978)2019-08-22 01:30:00 Test Item Value Reference Range Interpretation Comments NA (test code = 142 mmol/L 135-145 4199288243) K (test code = 4.1 mmol/L 3.5-5 1121150919) CL (test code = 106 mmol/L 98-108 6137435577) CO2 TOTAL (test code = 28 mmol/L 23-31 7697690776) AGAP (test code = 2-16 1145317503) BUN (test code = 16 mg/dL 7-23 9226157639) GLUCOSE (test code = 141 mg/dL 70-110 H 3254500357) CREATININE (test code = 0.75 mg/dL 0.5-1.04 1249237019) TOTAL BILI (test code = 0.8 mg/dL 0.1-1.8 1878196462) CALCIUM (test code = 9.6 mg/dL 8.6-10.6 2400479234) T PROTEIN (test code = 7.8 g/dL 6.3-8.2 6892224077) ALBUMIN (test code = 4.1 g/dL 3.5-5 5044878217) ALK PHOS (test code = 664 U/L 34-122 H 8312121336) ALTv (test code = 82 U/L 5-35 H 1742-6) AST(SGOT) (test code = 111 U/L 13-40 H 1444187711) eGFR Calculation mL/min/1.73m2 (Non-) (test code = 6883104835) eGFR Calculation mL/min/1.73m2 () (test code = 0334079442) KIM (test code = KIM) Association of [...] tests). Lab Interpretation Abnormal (test code = 53923-3) [facility]IP[facility], [id number] 01:30:00 Test Item Value Reference Range Interpretation Comments LIPASE (test code = 1124158392) 87 U/L 0-220 Lab Interpretation (test code = Normal 82539-5) [facility]PTT2020-[facility] 01:29:00 Test Item Value Reference Range Interpretation [...] seconds. Lab Interpretation Normal (test code = 61250-7) [facility] CypressPROTHROMBIN TIME / [id number] 01:27:00 Test Item Value Reference Range Interpretation [...] tions. Lab Interpretation (test Normal code = 36779-7) [facility]ressURINALYSIS2020-05-09 01:25:00 Test Item Value Reference Range Interpretation Comments APPEARANCE (test code = Hazy Clear A 2399596071) COLOR (test code = Lisa Yellow A 8044795484) PH (test code = 4.8-8.0 1962722433) SP GRAVITY (test code = 1.003-1.030 5350336046) GLU U QUAL (test code = Normal Normal 7277994499) BLOOD (test code = Negative Negative 2587332080) KETONES (test code = Negative Negative 2949434606) PROTEIN (test code = 30 mg/dL Negative A 2887-8) UROBILIN (test code = 4.0 mg/dL Normal A 2658933326) BILIRUBIN (test code = Negative Negative 7530090137) NITRITE (test code = Positive Negative A 3244593982) LEUK NICHOLE (test code = 500/uL Negative A 9304294926) RBC/HPF (test code = See_Comment H [Autom ated message] 3268339157) The system ic h generated this result transmit gulshan reference range : 0 - 3 HPF. The refe rence range was not u sed to interpret th is result as normal/abnormal . WBC/HPF (test code = See_Comment H [Autom ated message] 7584058022) The system whic h generated this result transmit gulshan reference range : 0 - 5 HPF. The refe rence range was not u sed to interpret th is result as normal/abnormal . BACTERIA (test code = Many Negative A 4768434758) MUCOUS (test code = Moderate Negative LPF A 5680931411) SQ EPITH (test code = HPF 2236556257) Lab Interpretation (test Abnormal code = 46036-8) [facility] WITH [id number] 01:18:00 Test Item Value Reference Range Interpretation [...] RDW-SD (test code = 44.3 fL 39-49.9 82559-4) RDW-CV (test code = 12.6 % 12-15.5 788-0) PLT (test code = See_Comment [Automated 777-3) message] The sy stem which generated this result transmitted reference range : 166 - 358 10*3/ ?L. The reference r luca was not used to interpret this result as normal/abnormal . MPV (test code = 9.1 fL 9.5-12.9 L 26212-5) NRBC/100 WBC (test See_Comment [Automat ed code = 9820215330) message] The system which generated this result transmitted reference range : 0.0 - 10.0 /100 WBCs. The refer ence range was not u sed to interpret th is result as normal/abnormal . NRBC x10^3 (test code <0.01 See_Comment [Auto mated = 1667062411) message] The s ystem which generated this result transmitted reference range : 10*3/?L. The reference range was not used to interpret this result as normal/abnormal . GRAN MAT (NEUT) % 71.0 % (test code = 770-8) IMM GRAN % (test code 1.70 % = 9322820274) LYMPH % (test code = 16.1 % 736-9) MONO % (test code = 9.8 % 5905-5) EOS % (test code = 1.1 % 713-8) BASO % (test code = 0.3 % 706-2) GRAN MAT x10^3(ANC) 2.47 10*3/uL 1.88-7.09 (test code = 7838895787) IMM GRAN x10^3 (test 0.06 10*3/uL 0-0.06 code = 2030210420) LYMPH x10^3 (test code 0.56 10*3/uL 1.32-3.29 L = 731-0) MONO x10^3 (test code 0.34 10*3/uL 0.33-0.92 = 742-7) EOS x10^3 (test code = 0.04 10*3/uL 0.03-0.39 711-2) BASO x10^3 (test code <0.03 0.01-0.07 = 704-7) Lab Interpretation Abnormal (test code = 72309-5) [facility] [id number] 23:39:00 Test Item Value Reference Range Interpretation Comments TROPONIN I (test 0.005 ng/mL See_Comment [Automated code = 9910582003) message] The system which generated this result [...] ? Lab Interpretation Normal (test code = 50781-8) [facility] (NA, K, CL, CO2, GLUCOSE, BUN, CREATININE, CA)2019-06-25 23:27:00 Test Item Value Reference Range Interpretation Comments NA (test code = 138 mmol/L 135-145 8229310025) K (test code = 4.3 mmol/L 3.5-5 4236454657) CL (test code = 103 mmol/L 98-108 2612459445) CO2 TOTAL (test code = 27 mmol/L 23-31 0734313300) AGAP (test code = 2-16 4278929662) BUN (test code = 16 mg/dL 7-23 9203621496) GLUCOSE (test code = 106 mg/dL 70-110 3399113127) CREATININE (test code 0.66 mg/dL 0.5-1.04 = 2853778729) CALCIUM (test code = 9.1 mg/dL 8.6-10.6 0954043025) eGFR Calculation mL/min/1.73m2 (Non-) (test code = 7606561707) eGFR Calculation mL/min/1.73m2 () (test code = 9738109448) KIM (test code = KIM) Association of [...] abnormalities in imaging tests). [facility] CypressLipase [id number] 23:27:00 Test Item Value Reference Range Interpretation Comments LIPASE (test code = 1164651072) 55 U/L 0-220 Lab Interpretation (test code = Normal 12849-0) [facility] CypressHepatic Function Panel (ALB, T.PRO, BILI T, BU/BC, ALT, AST, ALK PHOS)2019-06-25 23:27:00 Test Item Value Reference Range Interpretation Comments TOTAL BILI (test code = 6700814022) 1.0 mg/dL 0.1-1.1 BILI UNCON (test code = 6267543642) 0.2 mg/dL 0.1-1.1 BILI CONJ (test code = 5213217020) 0.0 mg/dL 0-0.3 T PROTEIN (test code = 2496881538) 7.8 g/dL 6.3-8.2 ALBUMIN (test code = 8893475432) 4.3 g/dL 3.5-5 ALK PHOS (test code = 7475874320) 622 U/L 34-122 H ALTv (test code = 1742-6) 126 U/L 5-35 H AST(SGOT) (test code = 7886483826) 180 U/L 13-40 H Lab Interpretation (test code = Abnormal 10536-2) [facility] WITH [id number] 23:23:00 Test Item Value Reference Range Interpretation [...] (test code = 51.3 fL 39-49.9 H 86979-7) RDW-CV (test code = 14.9 % 12-15.5 788-0) PLT (test code = See_Comment [Automated 777-3) message] The sy stem which generated this result transmitted reference range : 166 - 358 10*3/ ?L. The reference r luca was not used to interpret this result as normal/abnormal . MPV (test code = 9.3 fL 9.5-12.9 L 64761-6) NRBC/100 WBC (test See_Comment [Automat ed code = 6197919201) message] The system which generated this result transmitted reference range : 0.0 - 10.0 /100 WBCs. The refer ence range was not u sed to interpret th is result as normal/abnormal . NRBC x10^3 (test code <0.01 See_Comment [Auto mated = 7222437187) message] The s ystem which generated this result transmitted reference range : 10*3/?L. The reference range was not used to interpret this result as normal/abnormal . GRAN MAT (NEUT) % 67.4 % (test code = 770-8) IMM GRAN % (test code 0.60 % = 8681703166) LYMPH % (test code = 20.6 % 736-9) MONO % (test code = 9.4 % 5905-5) EOS % (test code = 1.7 % 713-8) BASO % (test code = 0.3 % 706-2) GRAN MAT x10^3(ANC) 2.43 10*3/uL 1.88-7.09 (test code = 0872226383) IMM GRAN x10^3 (test <0.03 0-0.06 code = 3971755094) LYMPH x10^3 (test code 0.74 10*3/uL 1.32-3.29 L = 731-0) MONO x10^3 (test code 0.34 10*3/uL 0.33-0.92 = 742-7) EOS x10^3 (test code = 0.06 10*3/uL 0.03-0.39 711-2) BASO x10^3 (test code <0.03 0.01-0.07 = 704-7) Lab Interpretation Abnormal (test code = 47359-8) [facility]ressURINALYSIS2020-03-12 22:51:00 Test Item Value Reference Range Interpretation Comments APPEARANCE (test code = Clear Clear 3111142288) COLOR (test code = Yellow Yellow 9593692062) PH (test code = 4.8-8.0 9130712585) SP GRAVITY (test code = 1.003-1.030 4425078966) GLU U QUAL (test code = Negative Negative 0431720664) BLOOD (test code = Negative Negative 9265580667) KETONES (test code = Negative Negative 0696404996) PROTEIN (test code = Negative Negative 2887-8) UROBILIN (test code = 1.0 mg/dL See_Comment [Auto mated message] 1361970222) The system [employer] generated this result transmit gulshan reference range : 0-1.0 mg/dL. Th e reference range was not used to interpret this result as normal/abnormal . BILIRUBIN (test code = Small Negative A 2433564914) NITRITE (test code = Negative Negative 0204606397) LEUK NICHOLE (test code = Negative Negative 8339200082) RBC/HPF (test code = See_Comment [Autom ated message] 1250656176) The system [employer] generated this result transmit gulshan reference range : 0 - 3 HPF. The refe rence range was not u sed to interpret th is result as normal/abnormal . WBC/HPF (test code = See_Comment [Autom ated message] 1149745691) The system [employer] generated this result transmit gulshan reference range : 0 - 5 HPF. The refe rence range was not u sed to interpret th is result as normal/abnormal . BACTERIA (test code = Negative Negative 6380826774) Ictotest (test code = Negative 8971188129) Lab Interpretation (test Abnormal code = 59927-6) [facility]ressPregnancy Test, [id number] 22:10:00 Test Item Value Reference Range Interpretation Comments PREG SERUM (test code Negative = 0690482138) KIM (test code = KIM) Less than 10 IU/L. ?If low titer or ectopic is suspected, resubmit specimen in 48-72 hours. [facility] CypressCBC WITH [id number] 22:10:00 Test Item Value Reference Range Interpretation Comments WBC (test code = See_Comment L [Automated 4290-2) message] The sy stem which [...] RDW-SD (test code = 49.4 fL 39-49.9 37960-1) RDW-CV (test code = 14.6 % 12-15.5 788-0) PLT (test code = See_Comment [Automated 777-3) message] The sy stem which generated this result transmitted reference range : 166 - 358 10*3/ ?L. The reference r luca was not used to interpret this result as normal/abnormal . MPV (test code = 9.1 fL 9.5-12.9 L 24935-1) NRBC/100 WBC (test See_Comment [Automat ed code = 4418256810) message] The system which generated this result transmitted reference range : 0.0 - 10.0 /100 WBCs. The refer ence range was not u sed to interpret th is result as normal/abnormal . NRBC x10^3 (test code <0.01 See_Comment [Auto mated = 1810582223) message] The s ystem which generated this result transmitted reference range : 10*3/?L. The reference range was not used to interpret this result as normal/abnormal . GRAN MAT (NEUT) % 48.3 % (test code = 770-8) IMM GRAN % (test code 0.30 % = 4675969577) LYMPH % (test code = 38.9 % 736-9) MONO % (test code = 9.8 % 5905-5) EOS % (test code = 2.4 % 713-8) BASO % (test code = 0.3 % 706-2) GRAN MAT x10^3(ANC) 1.78 10*3/uL 1.88-7.09 L (test code = 3024320731) IMM GRAN x10^3 (test <0.03 0-0.06 code = 1095473528) LYMPH x10^3 (test code 1.43 10*3/uL 1.32-3.29 = 731-0) MONO x10^3 (test code 0.36 10*3/uL 0.33-0.92 = 742-7) EOS x10^3 (test code = 0.09 10*3/uL 0.03-0.39 711-2) BASO x10^3 (test code <0.03 0.01-0.07 = 704-7) Lab Interpretation Abnormal (test code = 84476-6) [facility] CypressUrinalysis2020-03-06 20:58:00 Test Item Value Reference Range Interpretation Comments APPEARANCE (test code = Hazy Clear A 0500675216) COLOR (test code = Yellow Yellow 8942829034) PH (test code = 4.8-8.0 4397233067) SP GRAVITY (test code = 1.003-1.030 9226642707) GLU U QUAL (test code = Normal Normal 5521764635) BLOOD (test code = Negative Negative 3816878836) KETONES (test code = Negative Negative 8480897078) PROTEIN (test code = Negative Negative 2887-8) UROBILIN (test code = 4.0 mg/dL Normal A 4039147466) BILIRUBIN (test code = Negative Negative 6875081309) NITRITE (test code = Negative Negative 2320052719) LEUK NICHOLE (test code = Negative Negative 9800916913) RBC/HPF (test code = See_Comment [Autom ated message] 9714813806) The system [employer] generated this result transmit gulshan reference range : 0 - 3 HPF. The refe rence range was not u sed to interpret th is result as normal/abnormal . WBC/HPF (test code = See_Comment [Autom ated message] 5923506167) The system [employer] generated this result transmit gulshan reference range : 0 - 5 HPF. The refe rence range was not u sed to interpret th is result as normal/abnormal . BACTERIA (test code = Many Negative A 6412543215) MUCOUS (test code = Slight Negative LPF A 9194141386) SQ EPITH (test code = HPF 1332907033) HYAL CAST (test code = See_Comment [Aut omated message] 9304290803) The system [employer] generated this result transmit gulshan reference range : <=2 LPF. The refere nce range was not u sed to interpret th is result as normal/abnormal . Lab Interpretation (test Abnormal code = 65473-3) [facility] (NA, K, CL, CO2, GLUCOSE, BUN, CREATININE, CA)2019-06-19 20:51:00 Test Item Value Reference Range Interpretation Comments NA (test code = 141 mmol/L 135-145 0625659771) K (test code = 4.5 mmol/L 3.5-5 1384358406) CL (test code = 107 mmol/L 98-108 8380376408) CO2 TOTAL (test code = 25 mmol/L 23-31 7134740474) AGAP (test code = 2-16 1004705116) BUN (test code = 16 mg/dL 7-23 0762522665) GLUCOSE (test code = 89 mg/dL 70-110 5092155921) CREATININE (test code 0.50 mg/dL 0.5-1.04 = 8063222142) CALCIUM (test code = 9.0 mg/dL 8.6-10.6 9365729786) eGFR Calculation mL/min/1.73m2 (Non-) (test code = 9792426562) eGFR Calculation mL/min/1.73m2 () (test code = 5258338533) KIM (test code = KIM) Association of [...] abnormalities in imaging tests). [facility]ressHep[facility] Function Panel (ALB, T.PRO, BILI T, BU/BC, ALT, AST, ALK PHOS)2019-06-19 20:51:00 Test Item Value Reference Range Interpretation Comments TOTAL BILI (test code = 0930882199) 0.9 mg/dL 0.1-1.1 BILI UNCON (test code = 4152381786) 0.5 mg/dL 0.1-1.1 BILI CONJ (test code = 5843351057) 0.0 mg/dL 0-0.3 T PROTEIN (test code = 3073938846) 8.0 g/dL 6.3-8.2 ALBUMIN (test code = 7670193562) 4.3 g/dL 3.5-5 ALK PHOS (test code = 0571581089) 613 U/L 34-122 H ALTv (test code = 1742-6) 115 U/L 5-35 H AST(SGOT) (test code = 3863892741) 157 U/L 13-40 H Lab Interpretation (test code = Abnormal 56674-9) [facility] CypressLipase [id number] 20:51:00 Test Item Value Reference Range Interpretation Comments LIPASE (test code = 6885193017) 89 U/L 0-220 Lab Interpretation (test code = Normal 04148-0) [facility] CypressCT ABDOMEN PELVIS W [id number] 03:36:50 No acute intra-abdominal abnormality. Hepatosplenomegaly with [...] and agree withthe above report.[facility] CypressComplete Metabolic [id number] 01:38:00 Test Item Value Reference Range Interpretation Comments NA (test code = 141 mmol/L 135-145 7054097316) K (test code = 4.0 mmol/L 3.5-5 2570827029) CL (test code = 105 mmol/L 98-108 5331832585) CO2 TOTAL (test code = 24 mmol/L 23-31 0932643552) AGAP (test code = 2-16 0283845060) BUN (test code = 23 mg/dL 7-23 3869840032) GLUCOSE (test code = 110 mg/dL 70-110 1224276091) CREATININE (test code = 0.68 mg/dL 0.5-1.04 4081664979) TOTAL BILI (test code = 1.0 mg/dL 0.1-1.0 6771944252) CALCIUM (test code = 9.4 mg/dL 8.6-10.6 9272201047) T PROTEIN (test code = 8.1 g/dL 6.3-8.2 6347159862) ALBUMIN (test code = 4.7 g/dL 3.5-5 2830970355) ALK PHOS (test code = 575 U/L 34-122 H 2938668110) ALTv (test code = 112 U/L 5-35 H 1742-6) AST(SGOT) (test code = 112 U/L 13-40 H 7032844023) eGFR Calculation mL/min/1.73m2 (Non-) (test code = 9626840635) eGFR Calculation mL/min/1.73m2 () (test code = 8884071312) KIM (test code = KIM) Association of [...] tests). Lab Interpretation Abnormal (test code = 68589-1) [facility] CypressLipase, [id number] 01:38:00 Test Item Value Reference Range Interpretation Comments LIPASE (test code = 1972145851) 65 U/L 0-220 Lab Interpretation (test code = Normal 41380-3) [facility] CypressUrinalysis2020-02-05 01:30:00 Test Item Value Reference Range Interpretation Comments APPEARANCE (test code = Clear Clear 7462394395) COLOR (test code = Lisa Yellow A 0565753486) PH (test code = 4.8-8.0 7293421461) SP GRAVITY (test code = 1.003-1.030 7113388811) GLU U QUAL (test code = Normal Normal 1971806315) BLOOD (test code = Negative Negative 3521062109) KETONES (test code = Negative Negative 9237989813) PROTEIN (test code = Negative Negative 2887-8) UROBILIN (test code = 2.0 mg/dL Normal A 8322130329) BILIRUBIN (test code = Negative Negative 5155862362) NITRITE (test code = Negative Negative 3435754110) LEUK NICHOLE (test code = Negative Negative 9523223143) RBC/HPF (test code = See_Comment H [Autom ated message] 9549390858) The system [employer] generated this result transmit gulshan reference range : 0 - 3 HPF. The refe rence range was not u sed to interpret th is result as normal/abnormal . WBC/HPF (test code = See_Comment [Autom ated message] 3797128562) The system [employer] generated this result transmit gulshan reference range : 0 - 5 HPF. The refe rence range was not u sed to interpret th is result as normal/abnormal . BACTERIA (test code = Few Negative A 4265990482) MUCOUS (test code = Slight Negative LPF A 0430831082) SQ EPITH (test code = HPF 5260385844) Lab Interpretation (test Abnormal code = 39551-9) [facility] WITH [id number] 01:24:00 Test Item Value Reference Range Interpretation [...] RDW-SD (test code = 49.0 fL 39-49.9 27315-5) RDW-CV (test code = 14.3 % 12-15.5 788-0) PLT (test code = See_Comment [Automated 777-3) message] The sy stem which generated this result transmitted reference range : 166 - 358 10*3/ ?L. The reference r luca was not used to interpret this result as normal/abnormal . MPV (test code = 10.2 fL 9.5-12.9 14138-9) NRBC/100 WBC (test See_Comment [Automat ed code = 6756274279) message] The system which generated this result transmitted reference range : 0.0 - 10.0 /100 WBCs. The refer ence range was not u sed to interpret th is result as normal/abnormal . NRBC x10^3 (test code <0.01 See_Comment [Auto mated = 6115997342) message] The s ystem which generated this result transmitted reference range : 10*3/?L. The reference range was not used to interpret this result as normal/abnormal . GRAN MAT (NEUT) % 65.5 % (test code = 770-8) IMM GRAN % (test code 0.50 % = 6743359618) LYMPH % (test code = 24.7 % 736-9) MONO % (test code = 8.6 % 5905-5) EOS % (test code = 0.5 % 713-8) BASO % (test code = 0.2 % 706-2) GRAN MAT x10^3(ANC) 4.37 10*3/uL 1.88-7.09 (test code = 4466596703) IMM GRAN x10^3 (test 0.03 10*3/uL 0-0.06 code = 6917838042) LYMPH x10^3 (test code 1.64 10*3/uL 1.32-3.29 = 731-0) MONO x10^3 (test code 0.57 10*3/uL 0.33-0.92 = 742-7) EOS x10^3 (test code = 0.03 10*3/uL 0.03-0.39 711-2) BASO x10^3 (test code <0.03 0.01-0.07 = 704-7) Lab Interpretation Abnormal (test code = 90604-5) [facility]ressCT ANKLE RIGHT WO [id number] 16:39:33 Distal tibial spiral fracture with entrance [...] is seen. The ankle mortise is anatomic. [facility], Radiant Results Inft User - 12/05/2018 11:41 [...] the anterolateral tibialplafond without tibial plafond articular incongruity.[facility] CypressXR TIBIA FIBULA 2 VW [id number] 20:06:10 Comminuted mildly displaced distal tibia fracture [...] of the intertarsal and TMT joints isidentified. [facility] User - 12/01/2018 3:08 [...] to the tibialplafond.Nondisplaced proximal fibular shaft fracture. [facility] CypressXR FOOT 3+ VW [id number] 20:06:10 Comminuted mildly displaced distal tibia fracture [...] of the intertarsal and TMT joints isidentified. [facility] Inft User - 12/01/2018 3:08 [...] tibialplafond.Nondisplaced proximal fibular shaft fracture.[facility] CypressURINE [id number] 21:51:00 Test Item Value Reference Range Interpretation Comments URINE CULTURE (test 10,000 - 100,000 CFU/mL code = 630-4) mixed aerobic organisms - suggests endogenous microbial contamination [facility] CypressHELICOBACTER PYLORI AB, [id number] 14:31:00 Test Item Value Reference Range Interpretation Comments Helicobacter pylori IgG Negative Negative Antibody (test code = 3839087633) KIM (test code = KIM) Negative - No H. pylori IgG antibody detected.Positive - Indicates presence of detectable IgG antibodies. Does not distinguish between past or current infection, or between active infection and colonization.Invalid - A second sample should be sent. Lab Interpretation (test Normal code = 77159-4) [facility] Metabolic Panel (NA, K, CL, CO2, GLUCOSE, BUN, CREATININE, CA)2018-11-16 10:15:00 Test Item Value Reference Range Interpretation Comments NA (test code = 140 mmol/L 135-145 9121911500) K (test code = 3.9 mmol/L 3.5-5 0127475907) CL (test code = 105 mmol/L 98-108 6793233535) CO2 TOTAL (test code = 30 mmol/L 23-31 6538113544) AGAP (test code = 2-16 9281097029) BUN (test code = 16 mg/dL 7-23 4861463131) GLUCOSE (test code = 104 mg/dL 70-110 5132809141) CREATININE (test code 0.52 mg/dL 0.5-1.04 = 2335106967) CALCIUM (test code = 8.6 mg/dL 8.6-10.6 9335994795) eGFR Calculation mL/min/1.73m2 (Non-) (test code = 6053409196) eGFR Calculation mL/min/1.73m2 () (test code = 2453866729) KIM (test code = KIM) Association of [...] or urine or abnormalities in imaging tests). [facility] WITH [id number] 09:47:00 Test Item Value Reference Range Interpretation [...] RDW-SD (test code = 47.8 fL 39-49.9 12649-3) RDW-CV (test code = 13.5 % 12-15.5 788-0) PLT (test code = See_Comment [Automated 777-3) message] The sy stem which generated this result transmitted reference range : 166 - 358 10*3/ ?L. The reference r luca was not used to interpret this result as normal/abnormal . MPV (test code = 9.9 fL 9.5-12.9 29723-3) NRBC/100 WBC (test See_Comment [Automat ed code = 9856005665) message] The system which generated this result transmitted reference range : 0.0 - 10.0 /100 WBCs. The refer ence range was not u sed to interpret th is result as normal/abnormal . NRBC x10^3 (test code <0.01 See_Comment [Auto mated = 0692967690) message] The s ystem which generated this result transmitted reference range : 10*3/?L. The reference range was not used to interpret this result as normal/abnormal . GRAN MAT (NEUT) % 56.8 % (test code = 770-8) IMM GRAN % (test code 0.40 % = 8609376571) LYMPH % (test code = 27.2 % 736-9) MONO % (test code = 9.1 % 5905-5) EOS % (test code = 5.8 % 713-8) BASO % (test code = 0.7 % 706-2) GRAN MAT x10^3(ANC) 2.55 10*3/uL 1.88-7.09 (test code = 1367672833) IMM GRAN x10^3 (test <0.03 0-0.06 code = 8707977287) LYMPH x10^3 (test code 1.22 10*3/uL 1.32-3.29 L = 731-0) MONO x10^3 (test code 0.41 10*3/uL 0.33-0.92 = 742-7) EOS x10^3 (test code = 0.26 10*3/uL 0.03-0.39 711-2) BASO x10^3 (test code 0.03 10*3/uL 0.01-0.07 = 704-7) Lab Interpretation Abnormal (test code = 42677-9) [facility] CypressGLYCOSYLATED HEMOGLOBIN (A1C)2018-11-16 04:33:00 Test Item Value Reference [...] Indicated Lab Interpretation Normal (test code = 84222-1) [facility] [id number] 02:23:00 Test Item Value Reference Range Interpretation Comments HCV Semi-Quantitative (test code = 47560-1) [facility] [id number] 02:23:00 Test Item Value Reference Range Interpretation Comments HBsAB (test code = Negative [id number]) HBsAb mIU/mL Semi-Quantitative (test code = 7183964508) KIM (test code = Interpretation:?Hepatitis KIM) B Surface Antibody? ? Negative - Patient is considered to be not immune to infection with HBV.? Positive - Anti-HBs detected at greater than or equal to 12 mIU/mL.?Patient is considered to be immune to infection with HBV.? [facility] A VIRUS ANTIBODY [id number] 02:11:00 Test Item Value Reference Range Interpretation Comments HAVM Semi-Quantitative (test code = 28984-2) KIM (test code = HAVAb IgM Interpretative KIM) Information:Reactive greater than or equal to 1.2Biotin has been reported to cause a negative bias, interpret results relative to patient's use of biotin. [facility] B CORE ANTIBODY [id number] 02:11:00 Test Item Value Reference Range Interpretation Comments HBCM Semi-Quantitative (test code = 29353-7) KIM (test code = Biotin has been reported KIM) to cause a negative bias, interpret results relative to patient's use of biotin. [facility]ressABORH ONWKFBPCAJLH6769-62-36 00:49:22 Test Item Value Reference Range Interpretation Comments ABO & RH (test code O Positive Performe d at [facility] = 20) Laboratory Serv [facility]3 [address] [facility] [address]Cugb Free: [phone] A No. [id number] [facility] CypressUrinalysis2019-08-04 00:29:00 Test Item Value Reference Range Interpretation Comments APPEARANCE (test code = Clear Clear 5105589901) COLOR (test code = Yellow Yellow 0469443852) PH (test code = 4.8-8.0 4860306595) SP GRAVITY (test code = 1.003-1.030 H 2597658462) GLU U QUAL (test code = Normal Normal 5219936931) BLOOD (test code = Negative Negative 8723800562) KETONES (test code = Negative Negative 9137050236) PROTEIN (test code = Negative Negative 2887-8) UROBILIN (test code = 4.0 mg/dL Normal A 6611147491) BILIRUBIN (test code = Negative Negative 1003559003) NITRITE (test code = Negative Negative 2356393979) LEUK NICHOLE (test code = Negative Negative 9349348073) RBC/HPF (test code = See_Comment H [Autom ated message] 4836897264) The system [employer] generated this result transmit gulshan reference range : 0 - 3 HPF. The refe rence range was not u sed to interpret th is result as normal/abnormal . WBC/HPF (test code = See_Comment [Autom ated message] 1654545616) The system [employer] generated this result transmit gulshan reference range : 0 - 5 HPF. The refe rence range was not u sed to interpret th is result as normal/abnormal . BACTERIA (test code = Negative Negative 6655682155) SQ EPITH (test code = See_Comment [Auto mated message] 8289391129) The system [employer] generated this result transmit gulshan reference range : <=2 HPF. The refere nce range was not u sed to interpret th is result as normal/abnormal . Lab Interpretation (test Abnormal code = 62701-0) [facility]ressType and Screen - ONCE Sbohgxb7749-40-13 00:15:31 Test Item Value Reference Range Interpretation Comments ABO & RH (test code O POSITIVE Performe d at [facility] = 20) Laboratory Serv [facility] [place] [address] s [address]Zxgx Free: [phone] A No. [id number] IAT (test code = Negative Performed a t [facility] 1185) Laboratory [facility] [address] [place], [place] [address] Centerleila mason [address]Vkla Free: [phone] A No. [id number] [facility] CypressCOLBY [id number] 00:04:00 Test Item Value Reference Range Interpretation Comments TROPONIN I (test 0.002 ng/mL See_Comment [Automated code = 3420477540) message] The system which generated this result [...] ? Lab Interpretation Normal (test code = 78660-2) [facility] CypressLIPID PANEL (06122)(TOTAL CHOLESTEROL, TRIGLYCERIDES, HDL)2018-11-15 23:58:00 Test Item Value Reference Range Interpretation Comments CHOL (test code = 289 mg/dL 120-200 H 3735190680) HDL (test code = 97 mg/dL >50 4087600625) HDLC RATIO (test code = See_Comment [Au tomated message] 2543708799) The system [employer] generated this result transmit gulshan reference range : <=4.5. The refe rence range was not u sed to interpret th is result as normal/abnormal . TRIG (test code = 52 mg/dL 30-170 9707378381) LDL CHOL (test code = 182 mg/dL See_Comment H [Auto mated message] 37200-5) The system [employer] generated this result transmit gulshan reference range : <=160. The refe rence range was not u sed to interpret th is result as normal/abnormal . VLDL (test code = 10 mg/dL 5-60 7831454759) Lab Interpretation (test Abnormal code = 75132-4) [facility] CypressCT ABDOMEN PELVIS W ATZBQYFX7391-80-10 17:09:23 1.?No acute intra-abdominal or pelvic abnormality. [...] No acute intra-abdominal or pelvic abnormality.2. Splenomegaly, unchanged.[facility] CypressACETAMINOPHEN 2018-11-15 16:52:00 Test Item Value Reference Range Interpretation Comments ACETAMINOP (test code = <10.0 10-30 L 6555288441) KIM (test code = KIM) Toxic: Greater than 200 ug/mL @ 4 hour post ingestion or greater than 50 ug/mL @ 12 hour post ingestion Lab Interpretation (test Abnormal code = 87456-6) [facility] CypressXR CHEST 1 [id number] 15:23:59 1.?No acute cardiopulmonary abnormality.* * * [...] osseous abnormality is seen.IMPRESSION1. No acute cardiopulmonary abnormality.[facility] CypressTroponin [id number] 15:19:00 Test Item Value Reference Range Interpretation Comments TROPONIN I (test 0.014 ng/mL See_Comment [Automated code = 7303236977) message] The system which generated this result [...] ? Lab Interpretation Normal (test code = 27737-4) [facility] CypressN-TERMINAL MKM-HDA1622-74-03 15:16:00 Test Item Value Reference Range Interpretation Comments NT-proBNP (test code 29 pg/mL See_Comment [Autom ated = 4741176517) message] The system which generated this result transmitted reference range : <=125. The reference range was not used to interpret this result as normal/abnormal . KIM (test code = KIM) Biotin has been reported to cause a negative bias, interpret results relative to patient's use of biotin. Lab Interpretation Normal (test code = 57030-1) [facility] (NA, K, CL, CO2, GLUCOSE, BUN, CREATININE, CA)2018-11-15 15:07:00 Test Item Value Reference Range Interpretation Comments NA (test code = 142 mmol/L 135-145 8626747733) K (test code = 5.1 mmol/L 3.5-5 H 9235562870) CL (test code = 107 mmol/L 98-108 6874768070) CO2 TOTAL (test code = 26 mmol/L 23-31 3791644350) AGAP (test code = 2-16 0657563290) BUN (test code = 22 mg/dL 7-23 0313776568) GLUCOSE (test code = 93 mg/dL 70-110 3432975506) CREATININE (test code = 0.47 mg/dL 0.5-1.04 L 6666715169) CALCIUM (test code = 8.9 mg/dL 8.6-10.6 0267325248) eGFR Calculation mL/min/1.73m2 (Non-) (test code = 0533479516) eGFR Calculation mL/min/1.73m2 () (test code = 6179674874) KIM (test code = KIM) Association of [...] tests). Lab Interpretation Abnormal (test code = 04402-0) [facility] CypressHepatic Function Panel (ALB, T.PRO, BILI T, BU/BC, ALT, AST, ALK PHOS)2018-11-15 15:07:00 Test Item Value Reference Range Interpretation Comments TOTAL BILI (test code = 3931835827) 1.1 mg/dL 0.1-1.1 BILI UNCON (test code = 4264257624) 0.4 mg/dL 0.1-1.1 BILI CONJ (test code = 0522527481) 0.0 mg/dL 0-0.3 T PROTEIN (test code = 2030736379) 8.2 g/dL 6.3-8.2 ALBUMIN (test code = 1212443307) 4.2 g/dL 3.5-5 ALK PHOS (test code = 4097444204) 723 U/L 34-122 H ALT(SGPT) (test code = 0870492354) 196 U/L 9-51 H AST(SGOT) (test code = 4562263643) 194 U/L 13-40 H Lab Interpretation (test code = Abnormal 87906-8) [facility] CypressLipase Xszmd8249-01-61 15:07:00 Test Item Value Reference Range Interpretation Comments LIPASE (test code = 6538890845) 185 U/L 0-220 Lab Interpretation (test code = Normal 88190-6) [facility] CypressaPTT2019-08-03 14:58:00 Test Item Value Reference Range Interpretation [...] seconds. Lab Interpretation Normal (test code = 03283-2) [facility] CypressProthrombin Time (PT) / [id number] 14:55:00 Test Item Value Reference Range Interpretation [...] tions. Lab Interpretation (test Normal code = 16303-5) [facility] WITH RKEYYALKORTM7452-02-18 14:47:00 Test Item Value Reference Range Interpretation Comments WBC (test code = See_Comment [Automated 1290-2) message] The sy stem which generated this [...] RDW-SD (test code = 47.1 fL 39-49.9 74552-7) RDW-CV (test code = 13.4 % 12-15.5 788-0) PLT (test code = See_Comment [Automated 777-3) message] The sy stem which generated this result transmitted reference range : 166 - 358 10*3/ ?L. The reference r luca was not used to interpret this result as normal/abnormal . MPV (test code = 10.0 fL 9.5-12.9 93617-1) NRBC/100 WBC (test See_Comment [Automat ed code = 0770962691) message] The system which generated this result transmitted reference range : 0.0 - 10.0 /100 WBCs. The refer ence range was not u sed to interpret th is result as normal/abnormal . NRBC x10^3 (test code <0.01 See_Comment [Auto mated = 1765277540) message] The s ystem which generated this result transmitted reference range : 10*3/?L. The reference range was not used to interpret this result as normal/abnormal . GRAN MAT (NEUT) % 54.5 % (test code = 770-8) IMM GRAN % (test code 0.40 % = 7965368657) LYMPH % (test code = 26.5 % 736-9) MONO % (test code = 10.5 % 5905-5) EOS % (test code = 7.4 % 713-8) BASO % (test code = 0.7 % 706-2) GRAN MAT x10^3(ANC) 2.43 10*3/uL 1.88-7.09 (test code = 8156849776) IMM GRAN x10^3 (test <0.03 0-0.06 code = 6039353331) LYMPH x10^3 (test code 1.18 10*3/uL 1.32-3.29 L = 731-0) MONO x10^3 (test code 0.47 10*3/uL 0.33-0.92 = 742-7) EOS x10^3 (test code = 0.33 10*3/uL 0.03-0.39 711-2) BASO x10^3 (test code 0.03 10*3/uL 0.01-0.07 = 704-7) Lab Interpretation Abnormal (test code = 93164-6) [facility], Ygrvr0004-18-00 15:57:00 Test Item Value Reference Range Interpretation Comments Culture, Urine (test NF code = URC) Culture, Urine (test 10 NSF code = URC1) * This is an EDITED result. * A prior r esult that was reported as final has been changed. Sbmczxavtq1491-86-05 22:53:00 Test Item Value Reference Range Interpretation [...] = UACAST) CAST LPF Urine Source: Urine [id number] SURGICAL PATHOLOGY, LEVEL [id number] 14:31:[address] [address] Laboratory Printed: 07/09/[address] [place] [address] DAEMPathology Page: 1 Patient: YESSENIA ALEMAN Birthdate: 1960 Age/Sex: 56/F Spec#: [id number]: HERMES SALAZAR Specimen Date: 07/08/17 [...] Conway Entered by:07/09/17 - 1429 MAY PROCEDURES: 08031, 86991/4 Patient: YESSENIA ALEMAN Re07/03/17Loc: T4-A MR#: [id number] CONTINUED ON NEXT PAGE Dis: 07/09/17ta: DIS IN [address] [address] Laboratory Printed: 07/09/[address] [place] [address] [facility] Page: 2 Patient: YESSENIA ALEMAN [id number] (Continued) GROSS DESCRIPTION A. LIVER BIOPSY LEFT LOBE The specimen is received in 10% formalin, and is labeled with the patient's name and "liverbiopsy". The specimen consists of three cores of snow soft tissue ranging from 0.7 to 2.1 cmin length, and each one measures less than 0.1 cm in diameter. The entire specimen issubmitted in one cassette. Dictated by: SKYE SHAHIDUL Entered by: 07/08/17 - 1316 LAB.YGP MICROSCOPIC DESCRIPTION A microscopic examination was performed to arrive at the diagnostic conclusion reported. Signed (Electronically Signed) Kelvin 07/09/17 Patient: YESSENIA ALEMAN Re07/03/17Loc: T4-A MR#: [id number] END OF REPORT Dis: 07/09/17ta: DIS BKEglnnnsvr5545-61-33 05:13:00 Test Item Value Reference Range Interpretation [...] U/L 8-55 H = ALT) Reference Lab Wwqluiz5773-65-11 04:14:00 Test Item Value Reference Range Interpretation Comments Reference Lab 10 U/mL 0-35 Laurent ECLIA Testing (test code methodolo gyPerformed at: HD = CA199) - [facility] [address] [place], [place] [id number] Di aimee: Chico Suero MD, Phone : [phone] Reference Lab Msdyqhw3468-23-24 16:14:00 Test Item Value Reference Range Interpretation Comments Reference Lab Testing 128.5 Units 0.0-20.0 H Negat kourtney 0.0 - 20.0 (test code = MARLON) Equivocal 20.1 - 24.9 Positive >24.9Mitochondr ial (M2) Antibodies are found in 90-96% ofpatients with primary biliary cirrhosis.Perfo rmed at: - [facility] [place] [address] [id number] Director: Pj Rider MD, [facility] ne: [phone] Reference Lab Srjcyfj9789-77-84 16:14:00 Test Item Value Reference Range Interpretation [...] based solely onANCA IFA results. The In [facility] centerional ANCA Group Consensusrecomm ends follow up testing of p ositive sera with both WY-3 and MPO-ANCA enzyme immunoassays. A s many as 5% serumsamples are positive only b y EIA. Ref. AM J Clin Edchcb4012;111: 507-513. Reference Lab <1:20 titer Neg:<1:20 The atypical p ANCA pattern Testing (test has been obser chelita in code = ATANCA) asignificant percentage of patients with u lcerative colitis,primary sclerosing cholangitis and autoimmune hepatitis.Perfo rmed at: - [facility] [address] [place], [place] [address]Arw Di aimee: Chester ramírez MD, Phone: [phone] Uetnwdhcl4859-04-83 05:12:00 Test Item Value Reference Range Interpretation [...] 8-55 H code = ALT) Reference Lab Bkpciek2820-57-97 22:07:00 Test Item Value Reference Range Interpretation Comments Reference Lab Testing 785 IU/L 39-117 H (test code = ISOALKT) Reference Lab Testing 25 % 14-68 (test code = ISOALKBT) Reference Lab Testing 74 % 18-85 (test code = ISOALKLT) Reference Lab Testing 1 % 0-18 Perfor med at: HD - (test code = ISOALKIT) Lab[address] [id number] Director: Chico Suero MD, Phone: [phone] at: [address] [id number] Di aimee: Chester ramírez MD, Phone: [phone] Tnvrtynzi7546-69-66 11:48:00 Test Item Value Reference Range Interpretation [...] code = ALT) 92 U/L 8-55 H Njxgvndjx1970-66-30 06:08:00 Test Item Value Reference Range Interpretation [...] 8.5 mg/dL 7.8-10.44 N code = CA) Ctexylrkr1024-14-61 06:06:00 Test Item Value Reference Range Interpretation [...] code = ALT) 129 U/L 8-55 H Yxrzqfnnys2303-20-78 05:57:00 Test Item Value Reference Range Interpretation [...] code = BASO#) 0.0 thou/uL 0.0-0.2 N Qekgvvjzyop4516-70-15 05:55:00 Test Item Value Reference Range Interpretation [...] 3.0 - 4.0 CRITICAL: > 4.0 Anticoagulant? WVWTScldaylin5125-35-69 05:36:00 Test Item Value Reference Range Interpretation [...] 8.9 mg/dL 7.8-10.44 N code = CA) Ajaxdmdki7221-29-99 05:33:00 Test Item Value Reference Range Interpretation [...] code = ALT) 160 U/L 8-55 H Cgcbpwwuhq5018-34-23 05:28:00 Test Item Value Reference Range Interpretation [...] 0.1 thou/uL 0.0-0.2 N Chemistry - Elizabeth Jhycaav4891-84-67 13:02:00 Test Item Value Reference Range Interpretation [...] 10.0 IU/m L = = DSDNAINTERP) Negative 10. 0 - 15.0 IU/mL = Equivocal Great er [...] hod: Enzyme Linked Fluorescent Immunoassay (Elizabeth)Reference s: immoture.bedia AB Elizabeth Package Inserts - Directions for se, June,August 02, [employer] ic. Dmdfqzjvp3194-46-23 05:00:00 Test Item Value Reference Range Interpretation [...] code = ALT) 144 U/L 8-55 H Riveuggke7032-78-80 04:50:00 Test Item Value Reference Range Interpretation [...] 8.4 mg/dL 7.8-10.44 N code = CA) Swdmemqvzv2418-44-13 04:39:00 Test Item Value Reference Range Interpretation [...] code = BASO#) 0.0 thou/uL 0.0-0.2 N Sgnneehpz7392-83-68 17:07:00 Test Item Value Reference Range Interpretation Comments Chemistry (test code = IGG) 1032.00 mg/dL 552-1631 N Zhjsvrfyz3470-25-27 17:07:00 Test Item Value Reference Range Interpretation Comments Chemistry (test code = IGM) 215.00 mg/dL 33-293 N Nbsptllaon6600-93-23 00:50:00 Test Item Value Reference Range Interpretation [...] UABLD) Urine Source: Urine Clean CatchChemistry - Yrnzcbis3068-48-43 00:25:00 Test Item Value Reference Range Interpretation Comments Chemistry - Specials (test Non-Reactive NonReactive code = THEPAIGM) Chemistry - Specials (test Non-Reactive S/CO NonReactive code = THBSAG) Chemistry - Specials (test Non-Reactive NonReactive code = INTHBCM) Chemistry - Specials (test Non-Reactive NonReactive code = INTHEPC) Bfecgecib4248-50-04 22:12:00 Test Item Value Reference Range Interpretation [...] code 196 U/L 8-55 H = ALT) Oyrpqngfe2809-84-52 22:12:00 Test Item Value Reference Range Interpretation Comments Chemistry (test code = LIP) 22 U/L 8-78 N Vmietbmhcg6338-87-38 21:50:00 Test Item Value Reference Range Interpretation [...] code = BASO#) 0.1 thou/uL 0.0-0.2 N Qukpwcsao8795-97-13 22:49:00 Test Item Value Reference Range Interpretation [...] 78 U/L 8-55 H code = ALT) Lbcnqjinl6090-95-25 22:49:00 Test Item Value Reference Range Interpretation Comments Chemistry (test code = LIP) 12 U/L 8-78 N Wttxjngyiu5802-10-30 22:24:00 Test Item Value Reference Range Interpretation [...] code = BASO#) 0.0 thou/uL 0.0-0.2 N Egnagazcsw6518-43-40 22:00:00 Test Item Value Reference Range Interpretation [...] UABLD) Negative Negative Urine Source: Urine Clean HjeqwFygivfhv8285-69-80 09:28:00 Test Item Value Reference Range Interpretation Comments Accuchek (test code = ACU) 99 mg/dL 70-110 N Fdstritjrg5981-86-89 09:14:00 Test Item Value Reference Range Interpretation [...] UABLD) Negative Negative Urine Source: Urine Clean MbtdpKofnheblkq1129-76-43 21:28:00 Test Item Value Reference Range Interpretation [...] UABLD) Negative Negative Urine Source: Urine Clean JdlowOwkancgrm4397-96-47 21:09:00 Test Item Value Reference Range Interpretation [...] 95 U/L 8-55 H code = ALT) Kbzaquqoc0468-33-96 21:09:00 Test Item Value Reference Range Interpretation Comments Chemistry (test code = LIP) 39 U/L 8-78 N Hlsbfgcgfk0779-19-42 20:49:00 Test Item Value Reference Range Interpretation [...] code = BASO#) 0.0 thou/uL 0.0-0.2 N Gxfzspldaj7772-83-95 21:34:00 Test Item Value Reference Range Interpretation [...] Toxicology Not Detected NotDetected (test code = INGA) Toxicology Detected NotDetected A (test code = OXYCOD) Toxicology Not Detected NotDetected (test code = PPX) Toxicology The [employer] Pro file-V Panel (test code = for Qualitative Drugs MTCUTOFF) ofAbuse assays are for presumptive scr eening testing only.Th e drug class and detec tion limits are as follows: Drug Class Detection Limit Amphetamine 500 ng/mL*Inga iturates 200 ng/mLBenzod iazepines 150 ng/mL*Cocai ne 150 ng/mL*Methamphe tamine 500 ng/mL*Methadone 200 ng/mL*Opiates 1 [...] held fortwo weeks. Urine Source: Urine Clean PghsyDtpwquyuxj4680-28-88 19:17:00 Test Item Value Reference Range Interpretation [...] = UABLD) Negative Negative Urine Source: Urine KnowxmAvuexfdup3601-59-44 18:48:00 Test Item Value Reference Range Interpretation [...] code 84 U/L 8-55 H = ALT) Qaclkageh5767-27-75 18:48:00 Test Item Value Reference Range Interpretation Comments Chemistry (test code = JORGE) 53.0 U/L 25-125 N Oizfhgjnw4871-53-93 18:48:00 Test Item Value Reference Range Interpretation Comments Chemistry (test code = LIP) 10 U/L 8-78 N Ysweiodner7855-29-10 18:19:00 Test Item Value Reference Range Interpretation [...] = BASO#) 0.1 thou/uL 0.0-0.2 N Culture, Oktkh4670-44-73 10:22:00 Test Item Value Reference Range Interpretation Comments Culture, Urine (test code = URC) NF N Culture, Urine (test code = URC1) 10 MSF N Stllfikqq8644-08-46 17:38:00 Test Item Value Reference Range Interpretation Comments Chemistry (test code = PHOS) 2.9 mg/dL 2.3-4.7 N Xlnyjfryt9095-74-63 17:04:00 Test Item Value Reference Range Interpretation [...] t been validated for u se with [facility] (ove r 70 years of age), women, [...] H = ALT) Chemistry - BNP, HgbA1c, SVWg6792-90-58 17:04:00 Test Item Value Reference Range Interpretation Comments Chemistry - BNP, 4.9 % 4.0-6.0 N Therapeutic goals for glycemic HgbA1c, PTHi (test control ( ADA)Adults:- Goal of code = LTQI0LR) therapy: Les s than 7.0% HbA1c- Action suggeste d: Greater than 8.0% AyY9pFjani tric patients:- Toddlers and pr eschoolers: Less than 8.5% (but Greater than 7.5%)- Katelynn ool age (6-12 years): Less th an 8%- Adolescents and young adults (13-19 years): Less than 7.5%Diagnosing diabetes (ADA)- HbA1c: Greater than or equal to 6.5% Values of 5.7 - 6.4% indicate HIGH r isk for developing DiabetesInterna tional Expert Committee Repor t on the Role of the R5XJtubs in the Diagnosis of Di abetes. Diabetes Care 2009July;32(7): 1327-1334ADA, Diagnosis class ification of diabetes [facility].Diabetes Care 2010; 33 S uppl 1:S62 Kjxzzlrbi5171-34-35 16:59:00 Test Item Value Reference Range Interpretation Comments Chemistry (test code = CRP) 1.16 mg/dL = or < 0.5 H What test does the doctor want? C-REACTIVE PROTEIN (CRP)Zvxiboisgb3788-39-18 16:53:00 Test Item Value Reference Range Interpretation [...] HPF None Seen Urine Source: Urine Clean ZrutwWgudafkujl7266-43-27 16:46:00 Test Item Value Reference Range Interpretation [...] code = BASO#) 0.1 thou/uL 0.0-0.2 N Xgrgzqtjut6636-86-21 21:59:00 Test Item Value Reference Range Interpretation [...] Urine Clean CatchSepsis - Lactic Acid >2 Zstw0699-52-19 23:59:00 Test Item Value Reference Range Interpretation Comments Sepsis - Lactic Additional Lactate testin g will be Acid >2 Rflx performed in 3 hrs (test code = according to e GITRS8C) SepsisProtocol. Ddekhbemv8753-77-29 21:12:00 Test Item Value Reference Range Interpretation Comments Chemistry (test code = JORGE) 59.0 U/L 25-125 N Tncsegybf0111-64-61 20:59:00 Test Item Value Reference Range Interpretation [...] 87 U/L 8-55 H code = ALT) Rxzqhkpfy7327-30-32 20:59:00 Test Item Value Reference Range Interpretation Comments Chemistry (test code = LIP) 32 U/L 8-78 N Chemistry - Nkdvllr1186-62-62 20:59:00 Test Item Value Reference Range Interpretation Comments Chemistry - Lactate (test code = 2.1 mmol/L 0.5-2.2 N LACTSEP-T) Urhtwwpbyv5633-20-56 20:43:00 Test Item Value Reference Range Interpretation [...] = UABLD) Negative Negative Urine Source: Urine MoanveZazzpkwlrx5482-70-57 20:37:00 Test Item Value Reference Range Interpretation [...] code = BASO#) 0.1 thou/uL 0.0-0.2 N Notes Date/Time Note Provider Source 2017-07-09 [facility] Center [facility]:[address] : 1960, Age: 56, Sex: JERONIMO Ortega [id number] Unit #: [id number], Status: DIS IN [phone] Location: [address] Report [address] Dr.: MARIANELA DAMON DO Admission Date: 07/03/17 Report #: [id number] Discharge Date: 07/09/17 CC: Bita Hatfield NP, CHARLES DO Walker, Eric P MD DISCHARGE SUMMARY REPORT DATE OF ADMISSION: 07/03/2017 DATE OF DISCHARGE: 07/09/2017 DISCHARGE DIAGNOSES: 1. Abdominal pain, right upper quadrant, [facility] ed. 2. Primary biliary cirrhosis. 3. Transaminitis secondarily to #2, improved. 4. Nausea and vomiting, resolved. 5. Anxiety disorder, stable. 6. Hypertension, stable. CONSULTATIONS: Dr. Romero and Dr. Hodges with GI Service. PERTINENT LAB AND X-RAY FIN DINGS: AST ranged between 49-147, ALT ranged between 75-196, alkaline phosphatase ranged between 6 26-1031, total bilirubin normal. Albumin ranged between 3.4-3.7. Lipase 22. CA 19-9 antigen 1 0. CBC showed a hemoglobin ranging between 10.3-14. PT 13.5, INR 1.0. LESLY screen negative . LESLY IgG screen negative. Mitochondrial 2 antibody 128.5. Hepatitis A, B, and C panel negative 07/02/2017. CT of the abdomen and pelvi s dated 07/02/2017 showed changes consistent with cholecystectomy. Chronic pneumobilia. No acut e findings identified. Abdominal MRI dated 07/04/2017 showed no acute findings. A 3 mm and hyperin tense focus of the uncinate process of the pancreas. Mild splenomegaly noted. No intra or extrahepatic usha iary dilation. HOSPITAL COURSE: The patien t was admitted to the medical floor after presenting with increased abdominal pain in the contex t of known biliary cholestasis status post multiple bile duct stent placements. The patient was noted with transaminitis and concern for biliary obstruction. The patient underwent CT imaging of the abdomen and pelvis showing no evidence of bile duct obstruction. The patient als o underwent MRI imaging of the abdomen with findings as stated previously. The patient was evaluated by the GI Service due to extensive history of biliary dyskinesia and multiple sten t placements. The patient was treated symptomatically for intractable nausea and vomiting with IV fluids and antiemetics. The patient also received IV morphine sulfate for pain control and overall remained clinically stable and improved in symptomatology with supportive measures. Due to patient's recurrent nature of abdominal pain and biliary cholestasis, the patient underwent liver biopsy on 07/08/2017 with final pathology pending. The patient was clinically diagnosed with pr imary biliary cirrhosis with recommendations to continue Actigall 300 mg t.i.d. indefinitely. The patient's trend of LFTs improved with supportive measures and symptomatically the patient' s nausea and vomiting resolved. The patient was ambulatory and tolerating regular oral inta ke by the time of discharge. I have reexamine and reviewed findings with the patient at the time of discharge as well as discussed follow up instructions and medication adjustments. The patient verbalized understanding and overall was clinically stable and ready for discharge 07/09/2017. DISCHARGE MEDICATIONS: 1. Diazepam 5 mg 1 tab p.o. b.i.d. 2. Buprenorphine 1 patch topically q. 7 days. 3. Losartan 100 mg 1 tab p.o. daily. 4. Oxycodone/acetaminophen 7.5/325 mg 1 tab p.o . b.i.d. 5. Phenergan 50 mg p.o. q.4-6 hours p.r.n. 6. Seroquel 150 mg p.o. at bedtime. 7. Tizanidine 4 mg p.o. b.i.d. 8. Actigall 300 mg p.o. t.i.d. FOLLOWUP: The patient jitendra robledolow up with her primary care provider, Bita Vera within 7 days of discharge. The patient ma y follow up with Dr. Romero with the Gastroenterology Service and to call his office for appointment time and date. CONDITION ON DISCHARGE: Stable. ACTIVITY: Ad donovan. DIET: Heart healthy. CODE STATUS: Full. DISPOSITION: Home on 07/09/2017. 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 Name: DAVID DANJose Luis Bolton [facility] 20:38:00-00:[address] : 1960, Age: 56, Sex: JERONIMO Ortega [id number] Unit #: [id number], Status: ADM IN [phone] [facility] Report Dict Dr.: Jose Luis Romero MD Admission Date: 07/03/17 Report #: [id number] Discharge Date: CC: Bita Hatfield NP, Christopher J MD Walker, Eric P MD PROGRESS NOTE GI FOLLOWUP NOTE DATE OF SERVICE: 07/08/2017 SUBJECTIVE: Ms. Almean had a liver biopsy. She is feeling better. MEDICATIONS: Presently, she is on diazepam, Pepcid, hydrocodone, Cozaar, morphine p.r.n., Zofran p.r.n., Percocet, Phenergan, Seroquel, tizanidin e and estradiol. OBJECTIVE: VITAL SIGNS: Temperature 98, pulse 65 and blood pressure 170/110. ABDOMEN: Soft and nontender. LABORATORY DATA: White coun t is 3.7, hemoglobin is 10.3 and platelet count 202, that is from 24th. INR was 1 on 24th. Usha irubin is 0.8. AST and ALT have come down to 53 and 86, alkaline phosphatase 641. Serologic w orkup is notable for normal IgG and IgM, LESLY negative, pANCA negative, cANCA negative. Double stran ded DNA normal. Antimitochondrial antibody is elevated at 128. CA 19- 9 is pending. Liver biopsy is performed today an d is pending. ASSESSMENT: 1. Primary biliary cirrhosi s by serologic criteria. Liver function tests are improving. We will await biopsy and this can be followed up in the outpatient setting. 2. Nausea, vomiting and abd ominal pain. These seemed to be chronic. I have talked to her gastrologist in [place] last Ed. He states she had stents placed previously for suprapapillary stenosis with air in the usha iary tree on exam and normal bilirubin. There are no signs of biliary obstruction. She does not ne ed a repeat endoscopic retrograde cholangiopancreatography at this time. RECOMMENDATIONS: 1. She can go home tomorrow with Actigall dose to 300 mg 3 times per day. She will only be on this for the rest of her lif e. I have explained her diagnosis to her. She is to follow up with me 2 weeks to go for a liver biopsy. 2. She will need to follow up with her primary care doctor as directed and she will need to follow up with [facility] radiologist in [place]. She has persistent right upper quadrant pain and consider replacing her s tents, although at this time, I do not see if that is necessary for the above noted regions. Reported By: Jose Luis Romero MD Electronically Signed Date/Time: 07/09/17 0751 Dictated Date/Time: 07/08/17 1827 Transcribed Date/Time: 07/08/171923 Brake Operator Helper: MARTHA 2017-07-08 [facility] Name: ALEC ALEMAN CHARLES [facility] 15:15:00-00:[address] : 1960, Age: 56, Sex: JERONIMO Ortega [id number] Unit #: [id number], Status: ADM IN [phone] Location: T4-A 4404-P Report Dict DrYoly: MARIANELA DAMON DO Admission Date: 07/03/17 Report #: [id number] Discharge Date: CC: Hospitalist Progress Note - Subjective Encounter Start Date: 07/08/17 Encounter Start Time: 14:55 Subjective: f/u for abd pain and suspected biliary cirrhosis. N/V improved and LFT -: trend improving with conservative mgmt. - Objective Resuscitation Status: Resuscitation Status FULL:Full Resuscitation MAR Reviewed: Yes Vital Signs Weight: Vital Signs (12 hours) Temp Pulse Resp BP BP Pulse Ox 07/08/17 10:44 97.5 F L 71 16 180/106 H 97 07/08/17 08:00 97.7 F 54 L 18 07/08/17 07:40 97.7 F 54 L 18 169/104 H 97 Weight Admit Weight 186 lb Weight 186 lb I O: 07/07/17 07/08/17 07/09/17 06:59 06:59 06:59 Intake Total 4625 3968 Balance 4625 3968 Result Diagrams: 07/06/17 04:54 07/09/17 04:00 Additional Labs: Liver bx pending Phys Exam - Physical Examination Constitutional: NAD HEENT: PERRLA, oral pharynx no lesions Neck: no JVD, supple Respiratory: no wheezing, clear to auscultation bilateral Cardiovascular: RRR mild TTP in RUQ/mid-epigastric region Gastrointestinal: soft, no distention, positive bowel sounds Musculoskeletal: no edema, pulses present Neurological: normal sensation, moves all 4 limb s Psychiatric: A O x 3 Skin: normal turgor, cap refill <2 seconds Dx/Plan (1) Abdominal pain Code(s): R10.9 - UNSPECIFIED ABDOMINAL PAIN Sta tus: Acute Qualifiers: Abdominal location: right u pper quadrant Qualified Code(s): R10.11 - Right upper quadrant pain Comment: Suspected primary b iliary cirrhosis vs biliary dyskinesia from multiple bile duct stent placements, continue Morphine Sulfate IV, Oxycod one, s/p liver bx (2) Transaminitis Code(s): R74.0 - NONSPEC NIKOLE V OF LEVELS OF TRANSAMNS LACTIC ACID DEHYDRGNSE Status: Chronic Comment: See #1 above, improving trend, liver bx 07/08/17, serial monitoring (3) Nausea vomiting Code(s): R11.2 - NAUSEA WITH VOMITING, UNSPECIFI ED Status: Acute Qualifiers: Vomiting type: bilious vomiting Qualified Code( s): R11.14 - Bilious vomiting Comment: Secondary to choles tasis process, intermittent, Zofran prn, clear liquids as tolerated, resolved, saline lock IVF (4) Anxiety Code(s): F41.9 - ANXIETY DIS ORDER, UNSPECIFIED Status: Chronic Comment: Ativan prn. (5) Hypertension Code(s): I10 - ESSENTIAL (PRIMARY) HYPERTENSION Status: Chronic Qualifiers: Hypertension type: essentia l hypertension Qualified Code(s): I10 - Essential (primary) hypertension Comment: Labile, continue Cozaar 100mg daily, sa line lock IVF - Plan social service agency director, out of bed/ambulate, DVT proph w/SCDs Stable overall -: Continue supportive measures -: Saline lock IVF -: D/C Levaquin -: Await liver bx * AM lab: CMP * Likely home in am <Electronically signed by Marianela Damon DO> [id number] 2017-07-07 [facility] Center Name: ALEC ALEMAN Luis Renee [facility] 20:12:00-00:[address] : 1960, Age: 56, Sex: JERONIMO Ortega [address] Unit #: [id number], Status: DIS IN [phone] Location: [address] Report [address].: Luis Hodges MD Admission Date: 07/03/17 Report #: [id number] Discharge Date: 07/09/17 CC: Bita Hatfield NP, Joshua MD Walker, Eric P MD PROGRESS NOTE DATE OF SERVICE: 07/07/2017 SUBJECTIVE: The patient sta alphonso that she continues to have the sharp/stabbing midepigastric abdominal pain, primarily oc curring when eating either liquid or solid foods. This was associated with increased nausea, but n o actual emesis over the last 24 hours. She also states that she has been attempting to increase oral intake, but has not been able to do so primarily due to the pain. At this point, the patient i s very frustrated about her constant abdominal pain and her current clinical status was tearful during the interview. Currently denies any fevers, chills, GI bleeding , odynophagia, or dysphagia. OBJECTIVE: VITAL SIGNS: Temperature of 98.4, pulse 69, blood pressure 189/103, respiratory rate 18, satting 98% on room air. LABORATORY DATA: AST 57, AL T 92, alkaline phosphatase 635, total bilirubin 0.7. Pending labs include antimitochondrial antibody and pANCA. ASSESSMENT AND PLAN: The eduardo campos is a 56-year-old female with past medical history of morbid obesity, hypertension, anxie ty disorder, and persistent biliary cholestasis presenting with continued right upper quadra nt abdominal pain and elevated LFTs and cholestatic pattern. Persistent biliary cholestasis/right upper quad rant abdominal pain. The patient is presenting w ith a longstanding history of right upper quadrant/midepigastric abdominal pain that has been present for the last 2 years. She had been previously seen by an interventional in [facility] repeated biliary stents and symptom relief with this particular modality. However, with impr ovement of her abdominal pain, she did not receive any more stents and stopped using ursodiol with return of her symptoms slowly over the last 3-[address] scan and MRCP did not show any ev idence of common bile duct stones nor intrahepatic or extrahepatic biliary dilatation, although she continue to have increased AST, ALT, and alkaline phosphatase primarily in a cholestatic p attern. However, since institution of ursodiol for possible primary biliary cirrhosis she has mcallister d significant improvement in her LFTs over the last 24-48 hours making this diagnosis more likely. However, to confirm this diagnosis, she is scheduled for an ultrasound guided biopsy tomorrow, which would then further guide therapy. RECOMMENDATIONS: 1. We would continue to kilo nd LFTs daily as well as INR for continued evaluation of her liver function. 2. We would continue ursodiol daily for probabl e primary biliary cirrhosis. 3. The patient is scheduled for liver biopsy tomorrow for more definitive diagnosis of her elevated LFTs. 4. ERCP is not indicated at this time. 5. Continue pain control per primary team. We will continue to follow. Please call with an y questions. Reported By: Luis Hodges MD Electronically Signed Date/Time: 08/21/17 0905 Dictated Date/Time: 07/07/171907 Transcribed Date/Time: 07/07/172011 Brake Operator Helper: OREN 2017-07-07 [facility] Name: ALEC ALEMAN CHARLES [facility] 17:14:00-00:[address] : 1960, Age: 56, Sex: F JERONIMO Hoffmann [phone] Unit #: [id number], Status: ADM IN [phone] [facility] Report Dict DrYoly: MARIANELA DAMON DO Admission Date: 07/03/17 Report #: [id number] Discharge Date: CC: Hospitalist Progress Note - Subjective Encounter Start Date: 07/07/17 Encounter Start Time: 17:05 Subjective: f/u for RUQ abd pain, cholestasis and transaminitis with mild improvement -: of pain with associated N/V. - Objective Resuscitation Status: Resuscitation Status FULL:Full Resuscitation MAR Reviewed: Yes Vital Signs Weight: Vital Signs (12 hours) Temp Pulse Resp BP BP Pulse Ox 07/07/17 16:00 98.4 F 69 18 189/103 H 98 07/07/17 12:25 98.6 F 47 L 16 109/58 L 97 07/07/17 09:45 128/68 07/07/17 08:00 98.0 F 65 16 173/118 H 100 Weight Admit Weight 186 lb Weight 186 lb I O: 07/06/17 07/07/17 07/08/17 06:59 06:59 06:59 Intake Total 2140 4625 360 Balance 2140 4625 360 Result Diagrams: 07/06/17 04:54 07/06/17 04:54 Additional Labs: Laboratory Tests 07/02/17 07/04/17 07/04/17 21:42 04:06 04:07 Hgb 10.8 L AST 117 H 117 H ALT 196 H 144 H Alkaline Phosphatase 1031 H 837 H Lipase 22 07/05/17 07/05/17 07/06/17 04:25 04:25 04:54 Hgb 10.8 L AST 147 H 100 H ALT 160 H 129 H Alkaline Phosphatase 864 H 766 H Lipase 07/07/17 11:11 Hgb AST 57 H ALT 92 H Alkaline Phosphatase 635 H Lipase Phys Exam - Physical Examination Constitutional: NAD HEENT: PERRLA, oral pharynx no lesions Neck: no JVD, supple Respiratory: no wheezing, clear to auscultation bilateral Cardiovascular: RRR mild TTP in RUQ Gastrointestinal: soft, no distention, positive bowel sounds Musculoskeletal: no edema, pulses present Neurological: normal sensation, moves all 4 limb s Psychiatric: A O x 3 Skin: normal turgor, cap refill <2 seconds Dx/Plan (1) Abdominal pain Code(s): R10.9 - UNSPECIFIED ABDOMINAL PAIN Stat us: Acute Qualifiers: Abdominal location: right u pper quadrant Qualified Code(s): R10.11 - Right upper quadrant pain Comment: Suspected primary b iliary cirrhosis vs biliary dyskinesia from multiple bile duct stent placements, continue Morphine Sulfate IV, Oxycod one (2) Transaminitis Code(s): R74.0 - NONSPEC NIKOLE V OF LEVELS OF TRANSAMNS LACTIC ACID DEHYDRGNSE Status: Chronic Comment: See #1 above, impro ving trend, plan for liver bx 07/08/17, serial monitoring (3) Nausea vomiting Code(s): R11.2 - NAUSEA WITH VOMITING, UNSPECIFI ED Status: Acute Qualifiers: Vomiting type: bilious vomiting Qualified Code( s): R11.14 - Bilious vomiting Comment: Secondary to choles tasis process, intermittent, Zofran prn, clear liquids as tolerated (4) Anxiety Code(s): F41.9 - ANXIETY DIS ORDER, UNSPECIFIED Status: Chronic Comment: Ativan prn. 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 <Electronically signed by Marianela Damon DO> [id number] 2017-07-06 [facility] Name: ALEMANALEC CASTLE Joshua [facility] 17:31:00-00:[address] : 1960, Age: 56, Sex: JERONIMO Ortega [address] Unit #: [id number], Status: DIS IN [phone] Location: [address] Report D[address] Dr.: Luis Hodges MD Admission Date: 07/03/17 Report #: [id number] Discharge Date: 07/09/17 CC: Bita Hatfield NP, Joshua MD Walker,Boogie De Leon MD PROGRESS NOTE DATE OF SERVICE: 07/06/2017 REASON FOR CONSULTATIONS: elevated liver functio n tests, abdominal pain. SUBJECTIVE: The patient stat es that she had mild improvement in her abdominal pain, but she continues to have a sharp st abbing mid epigastric abdominal pain occurring primarily with eating either liquid or solid food. This is also associated with increased nausea, but no actual emesis. She also complains of minima l sensation of the food, feel like it is getting stuck at the location of the xiphoid process; villalobos ted, does not endorse any sensation of the impaction or inability to tolerate her own secretions. However, she also adds that she has been attempting to eat more over the last 24 hours and had be en fairly successful with no further episodes of vomiting. She further perseverates that the only t kirit that helps her abdominal pain where the stents placed years ago and increased narcotic pain medications. OBJECTIVE: VITAL SIGNS: Temperature 97. 8, pulse 53, blood pressure 110/69, respiratory rate 16, and satting 98 % on room air. GENERAL: The patient is lyin g in bed in no acute distress, initially was sleeping comfortably, alert and oriented x4. CARDIOVASCULAR: Regular rate and rhythm with no discernible murmurs, gallops or rubs. RESPIRATORY: Clear to auscul tation bilaterally with no discernible wheezes or rales. ABDOMEN: Normoactive bowel s ounds, soft, nondistended. Tenderness to palpation primarily in the midepigastric and right uppe r quadrant regions. However, with Carnett's maneuver, I was able to reproduce to her abdominal pain with palpation. EXTREMITIES: No cyanosis, clubbing, or edema. LABORATORY STUDIES: CBC with a white blood cell count of 3.7, hemoglobin 10.3, hematocrit 31.7, platelets 201. INR 1.0. Chem istry with a sodium of 140, potassium 3.7, chloride 107, CO2 of 29, BUN 4, creatinine 0.64, gluc ose 91, AST 100, ALT 129, alkaline phosphatase 766, and total bilirubin 0.9. Pending labs include antimitochondrial antibody and P-ANCA. ASSESSMENT AND PLAN: The pat ieraymond is a 56-year-old female with past medical history of morbid obesity, hypertension, anxie ty disorder, and persistent biliary cholestasis presenting with increased right upper quadrant abdominal pain an d cholestatic labs. Possible cholestasis process of the liver. The patient is presenting wi th a longstanding history of right upper quadrant/midepigastric abdominal pain that has been present for the last 2 years. She was previously being seen by Dr. Ana María Penny in [place] with multiple ERCPs performed and multiple stents placed with resolution of her abdominal pain. However, she subsequently stopped the use of ursodiol after her most recent ERCP due to her lack of symp toms and has been slowly getting the symptoms back over the last 3-6 months. At the current time, her problem is primarily located in the right upper quadrant. However , with Carnett's maneuver, I was able to reproduce the pain with shielding of the underlying organs , making a superficial proce ss more likely. CT scan and MRI showed no evidence of common bile duct stones; however, she does co ntinue to have increased AST, ALT, and alkaline phosphatase primarily in a cholestatic pattern con sistent with more over the diagnosis of things like primary biliary cirrhosis or primary scleros ing cholangitis. At the current time, she seems to be responding to administration of ursodiol f urther wending towards a diagnosis of possible primary biliary cirrhosis (she also fits the demographic). RECOMMENDATIONS: 1. We would continue to tren d LFTs daily as well as INR for continuing evaluation of her liver and possible further liver dysfunction. 2. We would continue ursodiol daily for probable primary biliary cirrhosis. 3. ERCP with stent placement, it is not necessar vincenzo indicated at this time. 4. If patient's abdominal pa in continues, we would consider liver biopsy on Saturday for further or more definitive evaluation o f the liver parenchyma and establishment of a diagnosis. We will continue to follow. Please call with any questions. Reported By: Luis Hodges MD Electronically Signed Date/Time: 08/21/17 0905 Dictated Date/Time: 07/06/17 1650 Transcribed Date/Time: 07/06/17 1731 Brake Operator Helper: MLJ 2017-07-06 [facility]MAN [facility] 13:44:00-00:[address] : 1960, Age: 56, Sex: F JERON[place] Hoffmann [phone] Unit #: [id number], Status: ADM IN [phone] [facility] Report Dict Dr.: Eh Henderson MD Admission Date: 07/03/17 Report #: [id number] Discharge Date: CC: Hospitalist Progress Note - Subjective Encounter Start Date: 07/06/17 Encounter Start Time: 12:00 Patient is seen today, Remai ns nauseas, unable to keep anything down, persistant Abdominal pain. plan for Liver biopsy on Saturday. - Objective Resuscitation Status: Resuscitation Status FULL:Full Resuscitation MAR Reviewed: Yes Vital Signs Weight: Vital Signs (12 hours) Temp Pulse Resp BP BP Pulse Ox 07/06/17 11:36 97.8 F 53 L 16 110/69 98 07/06/17 11:05 92/57 L 07/06/17 08:18 97.6 F 63 18 195/118 H 99 07/06/17 08:00 97.6 F 63 18 Weight Admit Weight 186 lb Weight 186 lb I O: 07/05/17 07/06/17 07/07/17 06:59 06:59 06:59 Intake Total 1845 2140 500 Balance 1845 2140 500 Result Diagrams: 07/06/17 04:54 07/06/17 04:54 Radiology Reviewed by me: Yes Phys Exam - Physical Examination HEENT: PERRLA, moist MMs Neck: no nodes, no JVD Respiratory: no wheezing, no rales Cardiovascular: RRR, no significant murmur Gastrointestinal: positive bowel sounds No guarding, tenderness of RUQ. Musculoskeletal: no edema, pulses present Neurological: non-focal, normal sensation Lymphatic: no nodes Psychiatric: normal affect Dx/Plan (1) ?cholangitis Status: Acute Comment: Laure nue on IV Ax, GI following, persistant Cholestsiss. Planned Liver biopsy on saturday. or option to transfer to [facility] [place] of care to [place]. (2) Abdominal pain Code(s): R10.9 - UNSPECIFIED ABDOMINAL PAIN Stat us: Acute Qualifiers: Abdominal location: right u pper quadrant Qualified Code(s): R10.11 - Right upper quadrant pain Comment: Pain controlled with narcotocs. (3) Anxiety Code(s): F41.9 - ANXIETY DIS ORDER, UNSPECIFIED Status: Acute Comment: Ativan prn. (4) Hypertension Code(s): I10 - ESSENTIAL (PRIMARY) HYPERTENSION Status: Acute (5) Nausea vomiting Code(s): R11.2 - NAUSEA WITH VOMITING, UNSPECIFI ED Status: Acute Qualifiers: Vomiting type: bilious vomiting Qualified Code( s): R11.14 - Bilious vomiting Comment: Likely from Cholestasis, COntinue with IV fluids. - Plan cont current plan of care, P T/OT, social service agency director, incentive spirometry, out of bed/ambulate, DVT proph w/lovenox * . - Discharge Day Encounter end time: 13:05 Review of Systems - Review of Systems Eyes: negative: Pain, Vision Change, Conjunctivae Inflammation, Eyelid Inflammation, Redness, Other ENT: negative: Ear Pain, Ear Discharge, Nose Pain, Nose Discharge, Nose Congestion, Mouth Pain, Mouth Swelling, Throat Pain, Throat Swelling, Ot her Respiratory: negative: Cough , Dry, Shortness of Breath, Hemoptysis, SOB with Excertion, Pleuritic Pain, Sputum, Wheezing Cardiovascular: negative: ch est pain, palpitations, orthopnea, paroxysmal nocturnal dyspnea, edema, light headedness, other Gastrointestinal: Nausea, Vomiting, Abdominal Pa in, Constipation Genitourinary: negative: Dys uria, Frequency, Incontinence, Hematuria, Retention, Other Musculoskeletal: negative: N saima Pain, Shoulder Pain, Arm Pain, Back Pain, Hand Pain, Leg Pain, Foot Pain, Other - Medications/Allergies Allergies/Adverse Reactions: Allergies Allergy/AdvReac Type Severity Reaction Status Da te / Time No Known Allergies Allergy Verified 07/03/17 08: 13 Medications: Current Medications Hydrocodone Bitart/Acetaminophen ([place] 5/325) 1 tab PO Q4H PRN PRN Reason: Moderate Pain (4-6) Last Admin: 07/06/17 01:28 Dose: 1 tab Diazepam (Valium) 5 mg PO BID [facility] Last Admin: 07/06/17 08:13 Dose: 5 mg Enoxaparin Sodium (Lovenox) 40 mg SC 0900 [facility] Stop: 07/07/17 11:00 Last Admin: 07/06/17 08:16 Dose: 40 mg Famotidine (Pepcid) 20 mg SLOW IVP Q12HR [facility] Last Admin: 07/06/17 09:46 Dose: 20 mg Levofloxacin 500 mg/ Device 100 mls @ 100 mls/hr IVPB Q24HR [facility] Last Admin: 07/05/17 15:30 Dose: 100 mls Sodium Chloride (Normal Saline 0.9%) 1,000 mls @ 125 mls/hr IV .Q8H [facility] Last Admin: 07/06/17 09:42 Dose: 1,000 mls Losartan Potassium (Cozaar) 100 mg PO DAILY [facility] Last Admin: 07/06/17 08:11 Dose: 100 mg Morphine Sulfate (Morphine) 4 mg SLOW IVP Q4H [place] N PRN Reason: Pain Last Admin: 07/06/17 12:45 Dose: 4 mg Ondansetron HCl (Zofran) 4 mg IVP Q6H PRN PRN Reason: Nausea/Vomiting Last Admin: 07/06/17 08:13 Dose: 4 mg Ondansetron HCl (Zofran Odt) 4 mg PO Q6H PRN PRN Reason: Nausea/Vomiting Last Admin: 07/05/17 20:16 Dose: 4 mg Oxycodone/Acetaminophen (Percocet 5/325) 1 tab P O BID [facility] Last Admin: 07/06/17 09:45 Dose: 1 tab Buprenorphine [ (Butrans] 1 Patch) 0 each TOP Q7 D [facility] Promethazine HCl (Phenergan) 50 mg PO Q4H PRN PRN Reason: Nausea Last Admin: 07/06/17 01:27 Dose: 50 mg Quetiapine Fumarate (Seroquel Xr) 150 mg PO QPM [facility] Last Admin: 07/05/17 20:15 Dose: 150 mg Sodium Chloride (Flush - Normal Saline) 10 ml IV F Q12HR [facility] Last Admin: 07/06/17 08:17 Dose: 10 ml Sodium Chloride (Flush - Normal Saline) 10 ml IV F PRN PRN PRN Reason: Saline Flush Tizanidine HCl (Zanaflex) 4 mg PO BID [facility] Last Admin: 07/06/17 08:11 Dose: 4 mg Ursodiol (Actigal) 300 mg PO TID-WM [facility] Last Admin: 07/06/17 12:06 Dose: 300 mg <Electronically signed by Eh Henderson MD> 07/06 1346 2017-07-06 [facility] Name: YESSENIA BRODY Jose Luis Romero STLS[facility] 00:31:00-00:[address] : 1960, Age: 56, Sex: JERONIMO Ortega [id number] Unit #: [id number], Status: ADM IN [phone] Location: [address] Report D[address].: Jose Luis Romero MD Admission Date: 07/03/17 Report #: [id number] Discharge Date: CC: Bita Hatfield NP, Christopher J MD Walker, Eric P MD PROGRESS NOTE DATE OF SERVICE: 07/05/2017 SUBJECTIVE: Ms. Aleman sta alphonso she is feeling bad again. Apparently earlier today, the nurse reports she was feeling bett er and eating. She is going to go home. She states she threw up in the trash can when trying li quids earlier today. She complains of pain is getting worse. She asks for a Valium prescription. OBJECTIVE: VITAL SIGNS: Temperature is 98.7, pulse 56, blo od pressure 93/66 to 159/94. LUNGS: Clear. HEART: Regular rate and rhythm. ABDOMEN: Vaguely tender. There is no rebound. T here is no guarding. LABORATORY STUDIES: White c ount 4.6, hemoglobin 10.8, platelet count 217. Today bilirubin 12.9. AST and ALT 147 and 160 with a bilirubin of 0.9, alkaline phosphatase is 864. Other labs: IgG, IgM normal . LESLY is normal. Double-stranded DNA is normal. Hepatitis A, B, and C is negative. Pending labs include antimitochon drial antibody, pANCA. ASSESSMENT: Abdominal pain of unclear etiology. CT scan and MRI showed no evidence of common bile duct stones. She has ch olestatic liver tests. She reports that she was diagnosed with "biliary cirrhosis" in [facility] on many years ago and had multiple procedures with Dr. Ana María Penny with ERCPs and multiple stents pl aced. We have received those records of the ERCPs, all of just reports to indicate the biliary tree was normal, except for main bile duct dilatation, and that stents were placed repetitively and that some biliary debris was removed at times. No overt stones or strictures were noted appare ntly. The last procedure date is from 11/2015, these records do not indicate distinct diagnosis. Asking the patient about previous biopsy, she did have a biopsy at one point in time , and she states she was on ursodiol one point in time. At this time, the patient seems to have a chol estatic infiltrative hepatic process. There were no overt signs of biliary obstruction. She is going to try to be discharged today, but she was doing better, but now is vomiting, again having pain and states she ca nnot go home. RECOMMENDATIONS: My recomme ndation is consider transferring the patient back down to [place] to be seen by her ERCP speciali st. If she needs repeat stenting, I am not sure what would be stented that I do not think I can fi nd indication for ERCP or this procedure. This is a complicated biliary case. I am going to a head and start her on some ursodiol. If she would stay here, I would recommend a liver biop sy Saturday morning. Dr. Arenas follow over the weekend. Reported By: Jose Luis Romero MD Electronically Signed Date/Time: 07/08/17 1205 Dictated Date/Time: 07/05/17 1411 Transcribed Date/Time: 07/05/17 1617 Brake Operator Helper: OREN 2017-07-05 [facility] Name: KHOA CLEMENTEYESSENIA Prosperity [facility]LS[facility] 14:45:00-00:[address] : 1960, Age: 56, Sex: JERONIMO Ortega [id number] Unit #: [id number], Status: DIS IN [phone] [facility] Report Dict DrYoly: Mariann Reeves MD Admission Date: 07/03/17 Report #: [id number] Discharge Date: 07/09/17 CC: Hospitalist Progress Note - Subjective Encounter Start Date: 07/05/17 Encounter Start Time: 14:43 Subjective: Seen and examine d-still has some issues-Gi doesnt want her to go yet- -: Possible Liver biopsy on saturday - Objective Resuscitation Status: Resuscitation Status FULL:Full Resuscitation Vital Signs Weight: Vital Signs (12 hours) Temp Pulse Resp BP BP Pulse Ox 07/05/17 11:14 98.7 F 56 L 16 93/66 96 07/05/17 08:23 97.8 F 63 16 156/95 H 98 07/05/17 08:00 97.8 F 63 16 07/05/17 04:00 98.4 F 60 20 132/84 95 Weight Admit Weight 186 lb Weight 186 lb I O: 07/04/17 07/05/17 07/06/17 06:59 06:59 06:59 Intake Total 2099 1845 Output Total 600 Balance 1499 1845 Result Diagrams: 07/05/17 04:25 07/05/17 04:25 Phys Exam - Physical Examination Constitutional: NAD HEENT: PERRLA, moist MMs, sc zion anicteric, TM's clear, oral pharynx no lesions Neck: no nodes, no JVD, supple, full ROM Respiratory: no wheezing, no rales, no rhonchi, clear to auscultation bilateral Cardiovascular: RRR, no significant murmur, no r ub Gastrointestinal: soft, non-tender, no distentio n, positive bowel sounds Musculoskeletal: no edema, pulses present Dx/Plan (1) Abdominal pain Code(s): R10.9 - UNSPECIFIED ABDOMINAL PAIN Stat us: Acute (2) Hypertension Code(s): I10 - ESSENTIAL (PRIMARY) HYPERTENSION Status: Acute (3) Anxiety Code(s): F41.9 - ANXIETY DISORDER, UNSPECIFIED S tatus: Acute (4) Nausea vomiting Code(s): R11.2 - NAUSEA WITH VOMITING, UNSPECIFI ED Status: Acute (5) ?cholangitis Status: Acute - Plan cont current plan of care, plan discussed w/ fam vincenzo, PT/OT, social service agency director Possible Liver biopsy on saturday per Gastrenterol sanjuanita * . <Electronically signed by Mariann Reeves MD> 07/16/17 0407 2017-07-05 [facility] Name: YESSENIA BRODY Jose Luis Romero [facility] 08:59:00-00:[address] : 1960, Age: 56, Sex: F JERONIMO Hoffmann [phone] Unit #: [id number], Status: ADM IN [phone] Location: [facility] Report Dict Dr.: Jose Luis Romero MD Admission Date: 07/03/17 Report #: [id number] Discharge Date: CC: Bita Hatfield NP, Christopher J MD Walker, Eric P MD PROGRESS NOTE DATE OF SERVICE: 07/04/2017 SUBJECTIVE: Ms. Aleman gino erating liquid diet. She denies pruritus. She denies fever or chills. Still notes vague abdominal discomfort. No vomiting, mild nausea. MEDICATIONS: Continues on h ydrocodone, Valium, Lovenox, Pepcid, Levaquin, morphine p.r.n., Zofran p.r.n., oxycodone, Butrans patch, Phenergan, Ser oquel, and Zanaflex. OBJECTIVE: VITAL SIGNS: Temperature 97.6, pulse 69, and bl ood pressure 136/86. ABDOMEN: Soft, slightly pro tuberant. There is no rebound. There is no guarding. LABORATORY STUDIES: White c ount 4.8, hemoglobin 10.8, platelet count is 218. Bilirubin is 0.9. AST and ALT are 17 and 144, alkaline phosphatase is down from 1031 to 836. ASSESSMENT: 1. LESLY negative, double str anded DNA negative, immunoglobulin level is negative, hepatitis A, B, C negative. 2. MRCP shows no evidence o f common duct stones, strictures, or ductal dilatation. 3. Mild splenomegaly. 4. Cholestatic liver functi on test. No evidence of biliary obstruction. 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 She has got air in her biliary tree and no signs of biliary tract occlusion with normal bile level. RECOMMENDATIONS: I treated with 7 days of antibiotic. She tolerated diet tomorrow, she can follow up with her intervent ional gastrologist tomorrow in [place], Dr. Ana María Agustin, she will follow up with him next week . If she needs further biliary intervention that would be the best place for her as it seems anastasia stokes has had some disorder requiring stents every 4 months. This probably would be on the scope for [facility] alexandro saeed. Reported By: Jose Luis Romero MD Electronically Signed Date/Time: 07/08/17 1205 Dictated Date/Time: 07/04/17 1727 Transcribed Date/Time: 07/04/17 0919 Brake Operator Helper: MLJ 2017-07-04 [facility] Name: YESSENIA BRODY Jose Luis Romero [facility] 11:24:00-00:00 [address] : 1960, Age: 56, Sex: JERONIMO Ortega [phone] Unit #: [id number], Status: ADM IN [phone] Location: [address] Attending Phys: Boogie Cox MD Discharge Date: Report #: [id number] Consulting Phys: Jose Luis Romero MD CC: Bita Hatfield NP, Christopher J MD Walker, Eric P MD CONSULTATION REPORT DATE OF CONSULTATION: 07/03/2017 HISTORY OF PRESENT ILLNESS: Ms. Aleman is a pleasant 56-year-old who was admitted to the hospital last night for naus ea and epigastric pain mainly in the right upper quadrant, currently going to her back. She repor ts that she has had some symptoms like this in the past. She was taken care of by gastroenter ologist, Dr. Ana María Penny in [place] and had multiple biliary stents placed, at one time was told she had "biliary cirrhosis." She had not had a stent in about 2-3 years now. She reports this all began about 10 years ago after gallbladder was removed and they thought she had retained sto latha and she had a couple of ERCPs ultimately in the past. She had about [address] d over several years with Dr. Penny and left in for almost three months at a time. She has no t had a stent in over 2 years now. She notes that she had no fever here, but she had fever and some rigors at home. She had a CAT scan here that showed pneumobilia and reviewing those films wi th the radiologist, there is no overt strictures or filling defects. There is no real intrahepati c ductal dilatation. There is mild central intrahepatic air. When asking the patient, she know s what caused this if it was related to her bile duct surgery or her gallbladder surgery, she sta alphonso the doctors did not know. She denies pruritus. She denies any weight loss. She has arthritic pain in her hands . Denies pain elsewhere. PAST MEDICAL HISTORY: Hyper tension, anxiety. She has some type of arthritis with some history of arthralgias. PAST SURGICAL HISTORY: Chol ecystectomy, multiple ERCPs with stent placement, unclear if these were plastic or metallic. SOCIAL HISTORY: The patient is a nonsmoker and does not drink, does not use illicit drugs. FAMILY HISTORY: Negative for biliary disease or malignancy. ALLERGIES: None known. MEDICATIONS: Diazepam, losa rtan, oxycodone b.i.d., promethazine p.r.n., Seroquel, tizanidine, bupropion patch every 7 days. PRESENT MEDICATIONS: [place], Valium, Lovenox, Pepcid, Cozaar, morphine, Zofran, Percocet, Butrans patch, Phenergan, Seroquel, sodium chloride 125 an hour. PHYSICAL EXAMINATION: VITAL SIGNS: Temperature is 97.8, pulse 71, blo od pressure 159/88. LUNGS: Clear. HEART: Regular rate and rhythm without murmur o r gallop. ABDOMEN: Soft. There is mil d tenderness in the right upper quadrant. There is no rebound. There is no guarding. She has no rib pain. Abdom en is without . EXTREMITIES: No clubbing, cyanosis, or edema. SKIN: Without stigmata of chronic liver disease . LABORATORY DATA: White coun t 8.9, hemoglobin 14.0, platelet count 369. Basic metabolic profile normal. AST is 117, ALT is 1 86, alkaline phosphatase is 1031. She was 73, 78, and 696 on 2017. She was 11 and 17. She was 68, 84 and 750, albumin is 4.9, protein is 9.2. Urinalysis was normal. Urine drug screen is positive for opiates, oxycodone, tricyclics, and benzodiazepine. Hepatitis A, B, and C are negative. ASSESSMENT: This is a 56-ye ar-old female with cholestatic appearing liver function tests but interestingly a normal bilir ubin. She has got an ERCP with pneumobilia consistent with her history of multiple ERCPs in the [facility] t. At this time, she has no overt biliary obstruction. We can see she has a normal bilirubin. She has small duct biliary disease or infiltrative hepatic disease. Alternatively, her numbers c ould be elevated related to some type of primary bone marrow process. She does relate a diagnosis of "biliary cirrhosis," which is not a true defined diagnosis, but at least that indicates to me t hat someone has told her she has some type of chronic disease with bile ducts. There are no overt si gns of a dominant stricture to assess expose cholangitis, the numbers are a little bit higher, the alkaline phosphatase is a little bit high. With primary biliary cholangitis, one would expec t the bilirubin to be up as well. Finally, this could be toxic reaction to excessive Tyleno l or pain medications. She denies any other supplements. She could have a low grade chronic cholangitis. PLAN: 1. We would start empiric antibiotics of Levaqu in. 2. We will get MRCP. 3. We will request records from her last individual gastrologist in [place] to see if we can obtain a diagnosis, which anastasia stokes has. Depending on findings on MRCP, she may or may not need an ERCP. We will also get markers PS C primary biliary cirrhosis and autoimmune liver disease. Reported By: Jose Luis Romero MD Electronically Signed Date/Time: 07/04/17 1433 Dictated Date/Time: 07/03/17 1544 Transcribed Date/Time: 07/03/17 1630 Brake Operator Helper: YOLANDE 2017-07-04 [facility] Name: YESSENIA BRODY Mariann Reeves [facility]LS[facility] 08:50:00-00:[address] : 1960, Age: 56, Sex: JERONIMO Ortega [phone] Unit #: [id number], Status: DIS IN [phone] Location: [address] Report Dict DrYoly: Mariann Reeves MD Admission Date: 07/03/17 Report #: [id number] Discharge Date: 07/09/17 CC: Hospitalist Progress Note - Subjective Encounter Start Date: 07/04/17 Encounter Start Time: 08:48 Subjective: Seen and examined -no new complaint - Objective Resuscitation Status: Resuscitation Status FULL:Full Resuscitation Vital Signs Weight: Vital Signs (12 hours) Temp Pulse Resp BP BP Pulse Ox 07/04/17 08:00 97.6 F 68 16 07/04/17 07:38 97.6 F 68 16 141/84 H 97 07/04/17 02:30 67 18 145/93 H Weight Weight 186 lb I O: 07/03/17 07/04/17 07/05/17 06:59 06:59 06:59 Intake Total 2099 Output Total 600 Balance 1499 Result Diagrams: 07/04/17 04:07 07/04/17 04:06 Phys Exam - Physical Examination Constitutional: NAD HEENT: PERRLA, moist MMs, sclera anicteric, TM's clear Neck: no nodes, no JVD, supple, full ROM Respiratory: no wheezing, no rales, no rhonchi, clear to auscultation bilateral Cardiovascular: RRR, no significant murmur, no r ub Gastrointestinal: positive bowel sounds tender Musculoskeletal: no edema, pulses present Dx/Plan (1) Abdominal pain Code(s): R10.9 - UNSPECIFIED ABDOMINAL PAIN Stat us: Acute (2) Hypertension Code(s): I10 - ESSENTIAL (PRIMARY) HYPERTENSION Status: Acute (3) Anxiety Code(s): F41.9 - ANXIETY DISORDER, UNSPECIFIED S tatus: Acute (4) Nausea vomiting Code(s): R11.2 - NAUSEA WITH VOMITING, UNSPECIFI ED Status: Acute (5) ?cholangitis Status: Acute - Plan plan discussed w/ family, continue antibiotics, PT/OT IVF rehydration -: Awaiting GI input * . <Electronically signed by Mariann Reeves MD> 07/16/17 0407 2017-07-03 [facility] Name: ALEC ALEMAN Eh Henderson STLS[facility] 14:43:00-00:[address] : 1960, Age: 56, Sex: F JERONIMO Hoffmann [id number] Unit #: [id number], Status: ADM IN [phone] Location: [address] [place] [address] Eh Henderson MD Admission Date: 07/03/17 Report #: [id number] Discharge Date: CC: Bita Hatfield NP, Mohan MD Walker, Eric P MD HISTORY AND PHYSICAL REPORT DATE OF ADMISSION: 07/03/2017 CHIEF COMPLAINT: Abdominal pain. HISTORY OF PRESENT ILLNESS: This is a 56-year-old, morbidly obese, white female with a known past medical history of cholecyst ectomy and following which she was having persistent biliary cholestasis. She has recentl y moved from [place] to [place], [place], for her 's transfer, and she has been living here , and prior to this, she was having similar abdominal pains and was managed by one of the GI doc tors over there, and they were placing biliary stents every 4 weeks, whenever she has this abdomi nal pain. The last biliary stent was 2 years ago, which was placed for almost 3 months and was raj chelita. Since then, she did not have any symptoms. The patient started noticing worsening abdominal pain at the right upper quadrant area radiating to the right side, was a 10/10 intensity pain, unab le to eat anything, unable to keep anything down. She decided to come to the hospital today, and a t the ER, she was noted to have elevated LFTs with a markedly elevated alkaline phosphatase. Her wh ite count was normal. There was no evidence of infection, but she was complaining of some chills a nd rigors at home. The patient had a normal white count. Requesting to see the GI. PAST MEDICAL HISTORY: 1. Hypertension. 2. Anxiety disorder. PAST SURGICAL HISTORY: Cholecystectomy. SOCIAL HISTORY: The patient is a nonsmoker. No history of alcohol, no history of illicit drug use. FAMILY HISTORY: No signific ant family history of coronary artery disease and no cancers in the family. ALLERGIES: No known drug allergies. HOME MEDICATIONS: The patie nt is on diazepam 5 mg p.o. b.i.d., losartan 100 mg p.o. daily, oxycodone 1 tablet p.o. b.i. d., promethazine 50 mg p.o. q.4 hours, Seroquel 150 mg p.o. at bedtime, tizanidine 4 mg p.o. b.i.d., buprenorphine patch topical every 7 days. REVIEW OF SYSTEMS: All 12 s ystems are reviewed with the patient thoroughly and found to be negative at this time. Syste m reviewed are HEENT, CVS, EVALUATION ASSISTANT, respiratory, GI, , musculoskeletal, skin and integument, psychiatric. PHYSICAL EXAMINATION: VITAL SIGNS: Blood pressure s are 154/91, heart rate is 75, respiratory rate is 18, saturation 99%. GENERAL: The patient is mod erately built and moderately nourished. She does not appear to be in acute distress at this time. Alert and oriented x3. HEENT: Atraumatic and normo cephalic. PERRLA. Extraocular movements were intact. Oral mucosa pink and moist. CARDIOVASCULAR: S1, S2 normal. No murmurs, rubs , or gallops. LUNGS: Bilateral air entry was equal. No wheezi ng, no crackles. ABDOMEN: Soft, nontender, n o guarding, no rebound tenderness. Bowel sounds normal. MUSCULOSKELETAL: No calf te nderness. No pedal edema, no joint tenderness, no joint swelling. SKIN: No cyanosis, no erythema, no rash, no pal chance. CENTRAL NERVOUS SYSTEM: [employer] nial examination II-XII intact. No focal deficits were noted. PSYCHIATRIC: No suicidal id eation, no signs of arpita, no signs of depression was noted. NECK: No thyromegaly, no JVD was noted. LABORATORY DATA: WBC 8.8, h emoglobin 14.0, hematocrit is 43.7, platelets is 369. Sodium 139, potassium 4.0, chloride is 102, bicarbon ate is 25, BUN is 12, creatinine 0.77. ASSESSMENT: 1. Intractable nausea and vomiting. 2. Moderate dehydration. 3. Acute abdominal pain, right upper quadrant. 4. Acute biliary cholestasis. 5. Hypertension. PLAN: 1. Plan is to closely monit or this patient. We will consult GI, Dr. Romero. Discussed the case briefly with him. He plans t o see the patient today. We will continue the patient on the clear liquids at this time, as she tolerates until there is a plan for any procedure. 2. The patient has severe n ausea and vomiting. We will start the patient on Zofran for nausea and continue the patient on IV fluids at this ti me with 100 mL an hour. 3. The patient has severe a bdominal pain. We will treat with morphine for pain management. She is already on oxycodone at h ome and multiple other pain medications. We will restart the pain medications. The patient has history of depression and anxiety. She is on Seroquel. We will restart this medication in the night. 4. Hypertension is well con trolled. We will restart the patient's home medications. 5. Deep venous thrombosis prophylaxis with Love nox 40 mg. I spent 75 minutes with this patient. Reported By: Eh Henderson MD Electronically Signed Date/Time: 07/04/17 0935 Dictated Date/Time: 07/03/17 1414 Transcribed Date/Time: 07/03/17 1442 Brake Operator Helper: PRADEEP
[2022-09-08] MEDS ORDERED: MORPHINE 4 MG/ML SYR ONE (02:53)
[2022-09-08] MEDS ORDERED: ONDANSETRON 4 MG/2 ML VIAL ONE (02:53)
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
[2022-09-08] MEDS ORDERED: HYDROCODONE/APAP 5/325 MG TAB ONE (04:39)
[2022-09-08] MEDS ORDERED: POTASSIUM CL SA 10 MEQ TAB PO ONE (04:40)
[2022-09-08 05:38] VITALS: TEMP 98.4; O2SAT 98
[2022-09-08 05:42] VITALS: BP 134/91
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
== END 2022-09-08 05:20 | disposition home or self-care (01) ==
LOC: ER 00:03
DX: S00.511A Abrasion of lip, initial encounter (principal); S00.83XA Contusion of other part of head, initial encounter; R07.81 Pleurodynia; E87.6 Hypokalemia; Y04.8XXA Assault by other bodily force, initial encounter
CPT/HCPCS: 85025; 80048; 36415; 70450; 72125; 71260; 74177; 96375; 96374; 99285; Q9967; J2405

== ENCOUNTER 2022-10-02 10:49 | Emergency (ER) | payer OTHER ==
--- OUTSIDE RECORDS SUMMARY | 2022-10-02 11:36 | XMS REPORT | Continuity of Care Document ---
:1960 Author Organization [facility] t Address [address] [facility] [address] [place] [address] Care Team Providers Name Role Phone El [place] Primary Care Physician Belinda Osman Attending Clinician Unavailable Jeannie Slade Attending Clinician Unavailable GULSHAN PIPER Attending Clinician Unavailable ARIK AVILEZ Attending Clinician Unavailable MOISE GAMEZ Attending Clinician Unavailable ANA MARÍA PENNY Attending Clinician Unavailable BRAULIO NGUYỄN Attending Clinician Unavailable Pawan KAN, Kalpesh Hawley Attending Clinician Unavailable MARIE MAXWELL Attending Clinician Unavailable Mariana Ramirez MD Attending Clinician Marie Maxwell Attending Clinician Chantale WEBSTER, Madhav Attending Clinician Lanny Hussein RN Attending Clinician Unavailable PASHA HINOJOSA Attending Clinician Unavailable Jadyn Skaggs DO Attending Clinician Juan Luis WEBSTER, Rigoberto Attending Clinician Pasha Hinojosa MD Attending Clinician JUDY WEISS Attending Clinician Unavailable Judy Weiss MD Attending Clinician [phone] MILAGROS OHARA Attending Clinician Unavailable ELYSSA MAXWELL Attending Clinician Unavailable Nguyễn Montano MD Attending Clinician Elyssa Maxwell DO Attending Clinician MEKA HAMMONDS Attending Clinician Unavailable Meka Hammonds NP Attending Clinician VIRA WASHBUNR Attending Clinician Unavailable Doctor Unassigned, [place] Attending Clinician Unavailable MARIANA RAMIREZ Attending Clinician Unavailable ZULEMA RODRIGUEZ JR Attending Clinician Unavailable Jennifer Cervantes DPM, Ronald E Attending Clinician Abe Arana CRNA Attending Clinician [...] Attending Clinician DANIEL GRADY Attending Clinician Unavailable Ysabel WEBSTER, Daniel Attending Clinician Ananya WEBSTER, Gulshan Hawley Attending Clinician EBRAJESSICA, CONSUELO Attending Clinician Unavailable Ebrahim RESISTOR TESTER, Rania Attending Clinician Kelly KAN, Kelsy Lemon Attending Clinician Unavailable , [facility] Attending Clinician Unavailable Green RESISTOR TESTER, Korina Attending Clinician KORINA ALBERTO Attending Clinician Unavailable OLGA LIDIA ORNELAS Attending Clinician Unavailable Phillip [facility] Attending Clinician Unavailable Hakeem WEBSTER, Olga Lidia Attending Clinician ROSALINDA FISHER Attending Clinician Unavailable Natalia WEBSTER, Rosalinda Upton Attending Clinician Karo KAN, Karlene Hawley Attending Clinician Unavailable Fe WEBSTER, Vira Steiner Attending Clinician Eliana Henriquez F Attending Clinician ELIANA POOLE Attending Clinician Unavailable Kadi Duggan MD Attending Clinician Uriel Santo MD Attending Clinician URIEL SANTO Attending Clinician Unavailable Maisha Bledsoe Attending Clinician MAISHA REYES Attending Clinician Unavailable SULAIMAN MARSH Attending Clinician Unavailable Keira WEBSTER, Moise Goodman Attending Clinician Jaki POLANCO Attending Clinician Unavailable Rayray Ayala MD, Leonard Attending Clinician Asaf RESISTOR TESTER, Kirstin Attending Clinician Lab, Adc Fam Pob I Attending Clinician Unavailable Kayy RESISTOR TESTER, Loyda Attending Clinician Jeannie Slade Attending Clinician Ivy WEBSTER, Gabriele Goodman Attending Clinician Mazin WEBSTER, Katheryn Attending Clinician Diego Grigsby MD, Kobi Attending Clinician GABRIELE GRAYSON Attending Clinician Unavailable JADYN SKAGGS Attending Clinician Unavailable Christina WEBSTER, Milagros Steiner Attending Clinician Ector Barnett Attending Clinician Luis KAN, Pricilla Attending Clinician Edwardo WEBSTER, Sundar Attending Clinician Maxim WEBSTER, Carlito Attending Clinician Gisselle Mai Attending Clinician Unavailable Boogie Cox Attending Clinician [...] Unavailable Elyssa Maxwell DO Admitting Clinician MEKA HAMMONDS Admitting Clinician Unavailable RAF GREENE Admitting Clinician Unavailable ZULEMA RODRIGUEZ JR Admitting Clinician Unavailable Jennifer Cervantes, Zulema WHALEN Admitting Clinician WON MALONE Admitting Clinician Unavailable [...] DUGGAN Admitting Clinician Unavailable Keira WEBSTER, Moise Goodman Admitting Clinician Jaki POLANCO Admitting Clinician Unavailable Diego Grigsby MD, Kobi Admitting Clinician GABRIELE GRAYSON Admitting Clinician Unavailable JADYN SKAGGS Admitting Clinician Unavailable Maxim WEBSTER, Calrito Admitting Clinician Boogie Cox Admitting Clinician Unavailable Payers Payer Name Policy Type Policy Number Effective Date Expiration Date S nasra COUNTS INCLUDE 234 BEDS AT THE [facility] [id number] 2021spring 00:00:00 MEDICARE PART A [id number] 2015 \\T\\ B 00:00:00 CIGNA II [id number] 2018 00:00:00 MEDICARE A B [id number] 2015 00:00:00 CIGNA [id number] 2018 HMO/POS/OPEN 00:00:00 ACCESS BCBS OS [id number] 2010 2020 POS/PPO/EPO 1 00:00:00 00:00:00 Cigna Preferred 53 [id number] 2021 [facility] Medicare (HMO) 00:00:00 - [facility] CIGNA 53 [id number] 2018 [facility] 00:00:00 [facility] MEDICARE MB [id number] 2016 [facility] NOVITAS 00:00:00 [facility] Problems Condition Condition Condition Status Onset Resolution Last Treating Co mments Source Name Details Category Date Date Treatment Clinician Date Hepatitis Hepatitis Disease Active Uni vers 1-11 ity of 00:00: [place] 00 Medical Branch Left lower Left lower Disease Active 2022-1 U nivers quadrant quadrant 0-25 [place] abdominal [place] 00 [place] RUQ pain RUQ pain Disease Active Unive rs 5-20 ity of 00:00: [place] [facility] Acute on Acute on Disease Active Unive rs chronic chronic 4-10 ity of pancreatit pancreatit [place] 00 [place] Pancreatit Pancreatit Disease Active [facility] is, acute is, acute 5-25 [facility] s 00:00: [facility] 00 Center 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[facility] cirrhosis cirrhosis 00:00: [facility] 00 Center S/P ERCP S/P ERCP Disease Active [facility] 00:00: [facility] 00 Center Cerebrovas Cerebrovas Disease Active 2020- U nivers cular cular 0-22 ity of accident accident 00:00: [place] (CVA) due (CVA) due 00 [facility] 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 Arthritis Arthritis Disease Active 2019- Uni vers 0-21 ity of 00:00: [place] [facility] Toxic Toxic Disease Active 2020- Univers metabolic metabolic 0-20 ity of encephalop encephalop 00:00: [place] 00 Medical Branch Altered Altered Disease Active 2019- Univers mental mental 0-18 ity of status status 00:00: [place] 00 Medical Branch Abdominal Abdominal Disease Active 2019-0 Uni vers pain pain 8-03 ity of 00:00: [place] [facility] Acute Acute Disease Active 2019-0 Univers abdominal abdominal 8-03 ity of pain pain 00:00: [place] 00 Medical Branch Peripheral Peripheral Disease Active 2019-0 U nivers nerve nerve 7-10 ity of disease disease 00:00: [place] 00 Medical Branch Choledocho Choledocho Disease Active 2018-0 U nivers lithiasis lithiasis 7-20 ity of 00:00: [place] 00 Medical Branch Constipati Constipati Disease Active 2018-0 U nivers on on 7-18 ity of 00:00: [place] 00 Medical Branch Acute Acute Disease Active 2018-0 Univers appendicit appendicit 6-10 it y of is is 00:00: [place] 00 Medical Branch Transamini Transamini Disease Active 2017-0 U nivers tis tis 8-17 ity of 00:00: [place] 00 Medical Branch Acute Acute Disease Active 2017 Univers cystitis cystitis 8-15 ity of without without 00:00: [place] hematuria hematuria 00 [facility] Branch History of History of Disease Active U nivers biliary biliary 8-15 ity of duct [place] 00 [facility] Branch 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 8-15 it y of vomiting vomiting 00:00: [place] with with 00 Medical nausea nausea Branch Intractabl Intractabl Disease Active U nivers e e 8-15 ity of epigastric epigastric [place] abdominal abdominal 00 [facility] pain pain Branch Obesity Obesity Disease Active 2015-04 Univers (BMI (BMI 1-17 ity of 30-39.9) 30-39.9) 00:00: [place] 00 Medical Branch Abdominal Abdominal Disease Active [facility] pain, pain, 5-07 [facility] acute, acute, 00:00: Medical right right 00 Center upper upper quadrant quadrant Hypokalemi Hypokalemi Disease Active [facility] a a 7-27 [facility] 00:00: Medical 00 Center Chronic Chronic Disease Active 2014-[address] [facility] pain pain 7-27 [facility] syndrome syndrome 00:00: Medica l 00 Center Hypokalemi Hypokalemi Disease Active 2014-[address] c periodic c periodic 7-27 Shari kes paralysis paralysis 00:00: [facility] 00 Center Biliary Biliary Disease Active [facility] disease disease 5-16 [facility] 00:00: Medical 00 Center Abdominal Abdominal Disease Active 2013- [facility] pain, pain, 5-09 [facility] other [...] pain pain 1-08 [facility] 00:00: Medical 00 Center 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 04-22 [facility] 00:00: Medical 00 [place] Elevated Elevated Disease Active 2012-04 [facility] liver liver 04-22 [facility] enzymes enzymes 00:00: Medical [place] Hypertensi Hypertensi Disease Active 2012-[address] on on 04-22 [facility] 00:00: Medical 00 [place] Nausea & Nausea & Disease Active 2012-04 [facility] vomiting vomiting 04-22 [facility] 00:00: Medical 00 [place] Fatty Fatty Disease Active 2012-[address] liver liver 04-22 [facility] 00:00: Medical 00 Center Alcohol Alcohol Disease Active 2012-[address] use use 04-22 [facility] 00:00: Medical 00 [place] Immunity Immunity Disease Active 2012-04 [facility] status status 04-22 [facility] testing testing 00:00: Medical 00 [place] Iron Iron Problem Common deficiency deficiency Sp roberta anemia anemia, - [facility] un[facility]ie [facility] d iron [facility] deficiency Medica l anemia Center type [id number] Neuropathy Problem Co mmon Spirit [facility] 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 - CHI hemorrhage disease St , without [facility] perforatio Medica l n AND Center without obstructio n [id number] Other Problem Common chronic Spirit pain - [facility] [id number] Osteoarthr Problem Co mmon itis Spirit involving - [facility] multiple St joints on [facility] both sides Medica l of body Center Gastroesop Gastroesop Problem C ommon hageal hageal Spirit reflux reflux - CHI disease disease St without without [facility]ukes esophagiti esophagiti Ks dical s s [place] [id number] Moderately Problem Co mmon severe Spirit depression [facility] Adjustment Grieving Problem Com mon disorder Spirit with - CHI depressed [facility] Essential Essential Problem Com mon hypertensi hypertensi Sp roberta on on - [facility] [id number] Anxiety Problem Common [facility] Primary Primary Problem Common insomnia insomnia [facility] [id number] Peptic Problem Common ulcer [facility] disease [facility] [id number] Post-menop Problem Com mon ausal Spirit bleeding [facility] [id number] Seasonal Problem Comm on allergies [facility] Allergies, Adverse Reactions, Alerts Allergy [...] Active Univers ALLERGIE Class ity of S [place] [facility] Family History Family Member Diagnosis Comments Start Date Stop Date Source Natural brother Cancer [facility] Social History Social Habit Start Date Stop Date Quantity Comments Source History SDOH University o f Alcohol Comment [place] Med ical Branch History SDOH Social Unive rsity of [facility] Med ical Together Branch History SDOH Social Unive rsity of [facility] Medical Branch History SDOH Social Unive rsity of [facility] Medical Membership Branch History SDOH Social Unive rsity of [facility] Medical Meetings Branch History of Tobacco [facility] - Use [facility] History SDOH 2022-07-31 2022-07-31 1 University o f Alcohol Frequency 00:00:00 00:00:00 [place] M edical Branch History SDOH 2022-07-31 2022-07-31 5 University o f Financial 00:00:00 00:00:00 [place] [facility] History SDOH Food 2022-07-31 2022-07-31 1 Univers ity of Worry 00:00:00 00:00:00 [place] [facility] History SDOH Food 2022-07-31 2022-07-31 1 Univers ity of Scarcity 00:00:00 00:00:00 [place] [facility] History SDOH 2022-07-31 2022-07-31 2 University o f Transport Med 00:00:00 00:00:00 [place] Medic al Branch History SDOH 2022-07-31 2022-07-31 2 University o f Transport Non-Med 00:00:00 00:00:00 [place] M edical Branch History SDOH Social 2022-07-31 2022-07-31 5 Unive rsity of Connections Phone 00:00:00 00:00:00 [place] M edical Branch History SDOH Social 2022-07-31 2022-07-31 5 Unive rsity of Connections Living 00:00:00 00:00:00 [place] [facility] History SDOH 2022-07-31 2022-07-31 0 University o f Physical Activity 00:00:00 00:00:00 [place] M edical DPW Branch History SDOH 2022-07-31 2022-07-31 0 University o f Physical Activity 00:00:00 00:00:00 [place] M edical MPS Branch History SDOH 2022-07-31 2022-07-31 2 University o f Housing Unable to 00:00:00 00:00:00 [place] M edical Pay Branch History SDGA 2022-07-31 2022-07-31 1 University o f Housing Places 00:00:00 00:00:00 [place] Medi brandy Lived Branch History SDOH 2022-07-31 2022-07-31 2 University o f Housing Homeless 00:00:00 00:00:00 [facility] dical Last Year Branch Exposure to 2022-07-20 2022-07-30 Not sure University of SARS-CoV-2 (event) 00:00:00 15:29:00 [place] [facility] [...] y of exposure 00:00:00 00:00:00 tobacco non-user [facility] Sex Assigned At [birth year] ANDRES Ahn 00:00:00 00:00:00 [facility] Smoking Status Start Date Stop Date Source Never smoked tobacco [facility] [place] Medications Ordered Filled Start Stop Current Ordering Indication Dosage Frequency Signature Comments Components Source Medication Medication Date Date Medication? Clinician (SIG) Name Name sucralfate 2022-0 Yes 1g 1 g, Oral, U nivers (CARAFATE) 4-18 AC+HS, ity of tablet 1 g 21:30: [place] 00 on [facility] 07/31/22 at [place] 1630, Until Discontinu ed, Routine maalox:diph 2022-0 2022- No 15mL 15 mL, Uni vers enhydrAMINE 18 04-18 Oral, ity of :lidocaine 16:45: 16:17 ONCE, 1 [place] as 2 % viscous 00 :00 dose, On Medi brandy 1:1:1 [facility] (FIRST[facility]MOUT 07/31/22 at [facility]) 1145, oral Routine suspension 15 mL tiZANidine 3-0 Yes 4mg Take 1 Unive rs 4 mg tablet 4-18 tablet by ity of 16:15: mouth in [place] [address] the Medical morning Branch and 1 tablet in the evening. traZODone 2022-0 Yes 150mg Take 1 Unive rs 150 mg 4-18 tablet by ity of tablet 16:15: mouth at [place] [address] bedtime. Medical Branch losartan 3-0 Yes 100mg Take 1 Univer s 100 mg 4-18 tablet by ity of tablet 16:15: mouth in [place] [address] the Medical morning. Branch gabapentin 3-0 Yes 300mg Take 1 Univ ers 300 mg 4-18 capsule by ity of capsule 16:15: mouth in [place] [address] the Medical morning Branch and 1 capsule at noon and 1 capsule in the evening. proMETHazin 3-0 Yes 25mg Take 1 Univ ers e 25 mg 4-18 tablet by ity of tablet 16:15: mouth [place] [address] every 4 Medical (four) Branch hours as needed. tiZANidine 3-0 Yes 4mg Take 1 Unive rs 4 mg tablet 4-18 tablet by ity of 16:15: mouth in [place] 48 the Medical morning Branch and 1 tablet in the evening. traZODone 2023-0 Yes 150mg Take 1 Unive rs 150 mg 4-18 tablet by ity of tablet 16:15: mouth at [place] 48 bedtime. Medical Branch losartan 2023-0 Yes 100mg Take 1 Univer s 100 mg 4-18 tablet by ity of tablet 16:15: mouth in [place] 48 the Medical morning. Branch gabapentin 2023-0 Yes 300mg Take 1 Univ ers 300 mg 4-18 capsule by ity of capsule 16:15: mouth in [place] 48 the Medical morning Branch and 1 capsule at noon and 1 capsule in the evening. proMETHazin 2023-0 Yes 25mg Take 1 Univ ers e 25 mg 4-18 tablet by ity of tablet 16:15: mouth [place] 48 every 4 Medical (four) Branch hours as needed. HYDROcodone 3-0 Yes 1{tbl} 1 tablet, Univers -acetaminop 4-18 Oral, ity of hen (NORCO 14:39: Q6HPRN, [place] 5) 5-325 mg 28 Starting Medi barndy tablet 1 on [facility] tablet 07/31/22 at 0939, Until Discontinu ed, Routine, Pain (scale 7-10) losartan 2022-0 Yes 100mg 100 mg, Unive rs (COZAAR) 4-18 Oral, ity of tablet 100 14:00: DAILY, [place] mg 00 First dose Medical on [facility] 07/31/22 at 0900, Until Discontinu ed, Routine enoxaparin 2022-0 Yes 40mg 40 mg, Unive rs (LOVENOX) 4-18 Subcutaneo ity of injection 14:00: [place], [place]ILY, [place] 40 mg 00 First dose Medical on [facility] 07/31/22 at 0900, Until Discontinu ed, Routine pantoprazol 3-0 Yes 40mg 40 mg, Univ ers e 4-18 Oral, BID, ity of (PROTONIX) 13:00: First dose [place] EC tablet 00 on [facility] 40 mg 07/31/22 at Branch 0800, Until Discontinu ed, Routine gabapentin 2023-0 Yes 300mg 300 mg, Uni vers (NEURONTIN) 4-18 Oral, TID, it y of capsule 300 13:00: First dose [place] mg 00 on [facility] 07/31/22 at Branch 0800, Until Discontinu ed, Routine morpHINE (2 2022-0 2022- No 2mg 2 mg, Slow Univers mg/mL) 07-31 IV Push, ity of injection 2 06:45: 06:10 ONCE, 1 [place] mg 00 :00 dose, On [facility] 07/31/22 at 0145, Routine maalox:diph 2022-0 2022- No 15mL 15 mL, Uni vers enhydrAMINE 07-31 Oral, ity of :lidocaine 06:45: 06:10 ONCE, 1 Archie as 2 % viscous 00 :00 dose, On Medi brandy 1:1:1 [facility] (FIRST[facility]MOUT 07/31/22 at [facility]) 0145, oral Routine suspension 15 mL tiZANidine 2022-0 Yes 4mg 4 mg, Univer s (ZANAFLEX) 07-31 Oral, BID, ity of tablet 4 mg 04:00: First dose [place] 00 on [facility] 07/30/22 at Branch 2300, Until Discontinu ed, Routine morpHINE (4 2022-0 2022- No 4mg 4 mg, Slow Univers mg/mL) 07-31 IV Push, ity of injection 4 02:30: 01:46 ONCE, 1 [place] mg 00 :00 dose, On [facility] 07/30/22 at 2130, STAT ondansetron 2022-0 Yes 4mg 4 mg, Slow Univers (ZOFRAN 07-31 IV Push, ity of (PF)) 02:18: Q6HPRN, [place] injection 4 59 Starting Medi brandy mg on [facility] 07/30/22 at 2118, Until Discontinu ed, Routine, Nausea and Vomiting (N/V) morpHINE (2 2022-0 2022- No 2mg 2 mg, Slow Univers mg/mL) 07-31 IV Push, ity of injection 2 02:18: 14:39 Q4HPRN, [place] mg 50 :46 Starting Medical on [facility] Branch 07/30/22 at 2118, Until Sat07/31/22 at 0939, Routine, Pain (scale 7-10) acetaminoph 2022-0 Yes 650mg 650 mg, Un you en 07-31 Oral, ity of (TYLENOL) 02:18: Q6HPRN, [place] tablet 650 45 Starting Medic al mg [...] [place] mg 00 :00 dose, On Medical [facility] Branch 07/30/22 at 1945, STAT pantoprazol 2022- Yes [id number] 40mg Take 1 Univers e 40 mg EC 07-31 tablet by ity of tablet 00:00: 04:59 mouth in [place] 00 :00 the Medical morning Branch and 1 tablet in the evening. Do all this for 30 days. sucralfate 2022- Yes [id number] 1g Take 1 Univers 1 gram 07-31 tablet by ity of tablet 00:00: 04:59 mouth [place] 00 :00 before Medical meals and Branch at bedtime for 30 days. pantoprazol 2022- Yes [id number] 40mg Take 1 Univers e 40 mg EC 07-31 tablet by ity of tablet 00:00: 04:59 mouth in [place] 00 :00 the Medical morning Branch and 1 tablet in the evening. Do all this for 30 days. sucralfate 2022- Yes [id number] 1g Take 1 Univers 1 gram 07-31 tablet by ity of tablet 00:00: 04:59 mouth [place] 00 :00 before Medical meals and Branch at bedtime for 30 days. HYDROcodone 2022- Yes [id number] 1{tbl} Take 1 U nivers -acetaminop 07-31 tablet by it y of hen 5-325 00:00: 04:59 mouth [place] mg tablet 00 :00 every 6 Medical (six) Branch hours as needed for Pain (scale 7-10) for up to 7 days. Indication s: acute pain HYDROcodone 2022- Yes 4647 1{tbl} Take 1 U nivers -acetaminop 07-31 tablet by it y of hen 5-325 [...] ity of tablet 16:27: 00:00 mouth at [place] 25 :00 bedtime. Medical Branch losartan 2022- No 100mg Take 100 Uni vers 100 mg 04-26-12 mg by ity of tablet 16:27: 00:00 mouth [place] 25 :00 daily. Medical Branch gabapentin 2022-2022- No 300mg Take 300 U nivers 300 mg 04-26-12 mg by ity of capsule 16:27: 00:00 mouth at [place] 25 :00 bedtime. Medical Branch QUEtiapine 2022- No 500mg Take 500 U nivers 400 mg 04-26-12 mg by ity of tablet 16:27: 00:00 mouth in [place] 25 :00 the Medical morning. Branch Patient reports that she has real bad anxiety, her doctor just upped her dosage to 500 mg omeprazole 2022- No 20mg Take 20 mg Univers 20 mg 04-26 by mouth ity of tablet 16:27: 00:00 daily. [place] 25 :00 Medical Branch tiZANidine 2022-0 2022- No 1 tablet Un you 2 mg tablet 04-26 as needed it y of 16:27: 00:00 [place] 25 :00 Medical Branch escitalopra 2022-0 2022- No 5mg Take 5 mg Univers m oxalate 5 04-26 by mouth ity of mg tablet 16:27: 00:00 in the [place] [address] :00 morning. Medical Branch traZODone Yes 100mg Take 100 Uni vers 100 mg 1-12 mg by ity of tablet 16:25: mouth at [place] [address] bedtime. Medical Branch losartan 0 Yes 100mg Take 100 Univ ers 100 mg 1-12 mg by ity of tablet 16:25: mouth [place] [address] daily. Medical Branch gabapentin Yes 300mg Take 300 Un you 300 mg 1-12 mg by ity of capsule 16:25: mouth at [place] [address] bedtime. [facility] Branch QUEtiapine Yes 500mg Take 500 Un you 400 mg 1-12 mg by ity of tablet 16:25: mouth in [place] [address] the Medical morning. [place] Patient reports that she has real bad anxiety, her doctor just upped her dosage to 500 mg omeprazole Yes 20mg Take 20 mg U nivers 20 mg 12 by mouth ity of tablet 16:25: daily. [address] tiZANidine 0 Yes 1 tablet Uni vers 2 mg tablet 04-26 as needed ity of 16:25: [address] escitalopra 0 Yes 5mg Take 5 mg U nivers m oxalate 5 12 by mouth ity of mg tablet 16:25: in the [place] [address] morning. Medical Branch HYDROcodone 0 Yes 1{tbl} 1 tablet, Univers -acetaminop -12 Oral, ity of hen (NORCO) 15:52: Q6HPRN, [place] as 10-325 mg 52 Starting Medica l tablet 1 on [place] Branch tablet 04/26/22 at 0952, Until Discontinu ed, Routine, Pain (scale 7-10) HYDROcodone 0 Yes 1{tbl} 1 tablet, Univers -acetaminop 1-12 Oral, ity of hen (NORCO) 15:52: Q6HPRN, [place] 10-325 mg 52 Starting Medica l tablet 1 on [place] Branch tablet 04/26/22 at 0952, Until Discontinu ed, Routine, Pain (scale 7-10) acetaminoph 2022-0 Yes 1{tbl} 1 tablet, Univers en-codeine 1-12 Oral, ity of (TYLENOL 15:52: Q4HPRN, [place] #3) 300-30 34 Starting Medic al mg tablet 1 on [place] Branch tablet 04/26/22 at 0952, Until Discontinu ed, Routine, Pain (scale 4-6) acetaminoph 2022-0 Yes 1{tbl} 1 tablet, Univers en-codeine 1-12 Oral, ity of (TYLENOL 15:52: Q4HPRN, [place] #3) 300-30 34 Starting Medic al mg tablet 1 on [place] Branch tablet 04/26/22 at 0952, Until Discontinu ed, Routine, Pain (scale 4-6) gadobenate 2022-0 2022- No [id number] .2mL/kg 13.28 mL Univers dimeglumine 04-26 (0.2 mL/kg i ty of (MULTIHANCE 15:30: 15:30 ?66.4 kg), [place] -15 mL) 00 :00 Intravenou Medica l injection s, ONCE, 1 Bran ch 13.28 mL dose, On Sat04/26/22 at 0930, Routine gadobenate 2022-0 2022- No [id number] .2mL/kg 13.28 mL Univers dimeglumine 04-26 (0.2 mL/kg i ty of (MULTIHANCE 15:30: 15:30 ?66.4 kg), [place] -15 mL) 00 :00 Intravenou Medica l injection s, ONCE, 1 Bran ch 13.28 mL dose, On Sat04/26/22 at 0930, Routine escitalopra Yes 5mg 5 mg, Unive rs m oxalate -12 Oral, ity of (LEXAPRO) 15:00: DAILY, [place] tablet 5 mg 00 First dose Me dical on [place] Branch 04/26/22 at 0900, Until Discontinu ed, Routine enoxaparin 2023-0 Yes 40mg 40 mg, Unive rs (LOVENOX) 1-12 Subcutaneo ity of injection 15:00: [place], DAILY, [place] 40 mg 00 First dose Medical on [place] [facility] 04/26/22 at 0900, Until Discontinu ed, Routine escitalopra 2023-0 Yes 5mg 5 mg, Unive rs m oxalate 1-12 Oral, ity of (LEXAPRO) 15:00: DAILY, [place] tablet 5 mg 00 First dose Me dical on [place] Branch 04/26/22 at 0900, Until Discontinu ed, Routine enoxaparin 2023-0 Yes 40mg 40 mg, Unive rs (LOVENOX) 1-12 Subcutaneo ity of injection 15:00: [place], [place] 40 mg 00 First dose Medical on [facility] Branch 04/26/22 at 0900, Until Discontinu ed, Routine NaCl 0.9% 2023-0 Yes 1000mL at 150 Univ ers (NS) IV 1-12 mL/hr, IV ity of infusion 06:15: [place] 1,000 mL 00 CONTINUOUS Medic al , Starting Branch on [facility] 04/26/22 at 0015, Until Discontinu ed, Routine NaCl 0.9% 2023-0 Yes 1000mL at 150 Univ ers (NS) IV 1-12 mL/hr, IV ity of infusion 06:15: [place]fusion[place] 1,000 mL 00 CONTINUOUS Medic al , Starting Branch on [place] 04/26/22 at 0015, Until Discontinu ed, Routine NaCl 0.9% 2023-0 2023- No 1000mL at 999 Uni vers (NS) bolus -12 01-12 mL/hr, ity of infusion 06:00: 05:34 1,000 mL, [place] 1,000 mL 00 :11 IV Medical Piggyback, Branch ONCE, 1 dose, On [facility] 04/26/22 at 0000, STAT NaCl 0.9% 2023-0 2023- No 1000mL at 999 Uni vers (NS) bolus -12 01-12 mL/hr, ity of infusion 06:00: 05:34 1,000 mL, [place] 1,000 mL 00 :11 [facility] dose, On [place] 04/26/22 at 0000, STAT traZODone 2023-0 Yes 100mg 100 mg, Univ ers (DESYREL) 1-12 Oral, QHS, ity of tablet 100 05:30: First dose [place] mg 00 on [facility] 04/25/22 at Branch 2330, Until Discontinu ed, Routine QUEtiapine 2023-0 Yes 50mg 50 mg, Unive rs (SEROQUEL) 1-12 Oral, QHS, ity of tablet 50 05:30: First dose [place] mg 00 on [facility] 04/25/22 at Branch 2330, Until Discontinu ed, Routine gabapentin 2023-0 Yes 300mg 300 mg, Uni vers (NEURONTIN) 1-12 Oral, QHS, it y of capsule 300 05:30: First dose [place] mg 00 on [facility] 04/25/22 at Branch 2330, Until Discontinu ed, Routine traZODone 2023-0 Yes 100mg 100 mg, Univ ers (DESYREL) 1-12 Oral, QHS, ity of tablet 100 05:30: First dose [place] mg 00 on [facility] 04/25/22 at Branch 2330, Until Discontinu ed, Routine QUEtiapine 2023-0 Yes 50mg 50 mg, Unive rs (SEROQUEL) 1-12 Oral, QHS, ity of tablet 50 05:30: First dose [place] mg 00 on [facility] 04/25/22 at Branch 2330, Until Discontinu ed, Routine gabapentin 2023-0 Yes 300mg 300 mg, Uni vers (NEURONTIN) 1-12 Oral, QHS, it y of capsule 300 05:30: First dose [place] mg 00 on [facility] 04/25/22 at Branch 2330, Until Discontinu ed, Routine ondansetron 2023-0 Yes 4mg 4 mg, Slow Univers (ZOFRAN 1-12 IV Push, ity of (PF)) 05:16: Q6HPRN, [place] injection 4 42 Starting Medi brandy mg on [facility] 04/25/22 at 2316, Until Discontinu ed, Routine, [...] First dose [place] 17 g 00 on Sat04/25/22 at Branch 2315, Until [...] First dose [place] 17 g 00 on Sat04/25/22 at Branch 2315, Until [...] 1 Medical 50 mcg dose, On Branch Sat23 at 2115, Routine FENTanyl PF 2022- No 50ug 50 mcg, Un you (SUBLIMAZE 04-26 Slow IV ity o f (PF)) 03:15: 03:19 Push, [place] injection 00 :00 ONCE, 1 Medical 50 mcg dose, On Branch 04/25/22 at 2115, Routine iopamidol 2022-0 202- No [id number] 80mL 80 mL, U nivers (ISOVUE 04-26 Intravenou ity o f 370-500 mL) 01:30: 01:30 s, ONCE, 1 [place] injection 00 :00 dose, On Medica l 80 mL Wed Branch 04/25/22 at 1930, Routine iopamidol 2022-0 2022- No [id number] 80mL 80 mL, U nivers (ISOVUE 04-26 Intravenou ity o f 370-500 mL) 01:30: 01:30 s, ONCE, 1 [place] injection 00 :00 dose, On Medica l 80 mL Wed Branch 04/25/22 at 1930, Routine ondansetron 2022-0 2022- No 4mg 4 mg, Slow Univers (ZOFRAN 04-26 IV Push, ity of (PF)) 00:15: 23:27 ONCE, 1 [place] injection 4 00 :00 dose, On Medi brandy mg Wed Branch 04/25/22 at 1815, Routine ondansetron 2022-0 2022- No 4mg 4 mg, Slow Univers (ZOFRAN 04-26 IV Push, ity of (PF)) 00:15: 23:27 ONCE, 1 [place] injection 4 00 :00 dose, On Medi brandy mg Wed Branch 04/25/22 at 1815, Routine ondansetron 2022-0 Yes [id number] 4mg Take 1 Univers 4 mg 1-12 tablet by ity of disintegrat 00:00: mouth [place] ing tablet 00 every 8 Medica l (eight) Branch hours as needed for Nausea and Vomiting (N/V). pantoprazol Yes [id number] 20mg Take 1 Univers e 20 mg EC 1-12 tablet by ity of tablet 00:00: mouth in [place] 00 the Medical morning. Branch HYDROcodone 2022-0 Yes [id number] 1{tbl} Take 1 Un you -acetaminop 1-12 tablet by ity of hen 10-325 00:00: mouth [place] mg tablet 00 every 6 Medical (six) Branch hours as needed for Pain (scale 7-10). Indication s: acute pain ondansetron 2022-0 Yes [id number] 4mg Take 1 Univers 4 mg 1-12 tablet by ity of disintegrat 00:00: mouth [place] ing tablet 00 every 8 Medica l (eight) Branch hours as needed for Nausea and Vomiting (N/V). pantoprazol 2022-0 Yes [id number] 20mg Take 1 Univers e 20 mg EC 1-12 tablet by ity of tablet 00:00: mouth in [place] 00 the Medical morning. Branch HYDROcodone 2022-0 Yes [id number] 1{tbl} Take 1 Un you -acetaminop 1-12 tablet by ity of hen 10-325 00:00: mouth [place] mg tablet 00 every 6 Medical (six) Branch hours as needed for Pain (scale 7-10). Indication s: acute pain ondansetron 2022-0 Yes [id number] 4mg Take 1 Univers 4 mg 1-12 tablet by ity of disintegrat 00:00: mouth [place] ing tablet 00 every 8 Medica l (eight) Branch hours as needed for Nausea and Vomiting (N/V). pantoprazol 2022-0 Yes [id number] 20mg Take 1 Univers e 20 mg EC 1-12 tablet by ity of tablet 00:00: mouth in [place] 00 the Medical morning. Branch HYDROcodone 2022-0 Yes [id number] 1{tbl} Take 1 Un you -acetaminop 1-12 tablet by ity of hen 10-325 00:00: mouth [place] mg tablet 00 every 6 Medical (six) Branch hours as needed for Pain (scale 7-10). Indication s: acute pain ondansetron 2022-0 2022- No [id number] 4mg Take 1 Univers 4 mg 1-12 04-17 tablet by ity of disintegrat 00:00: 00:00 [place] ing tablet 00 :00 every 8 Medica l (eight) Branch hours as needed for Nausea and Vomiting (N/V). pantoprazol 202-0 2022- No [id number] 20mg Take 1 Univers e 20 mg EC 04-26 tablet by ity of tablet 00:00: 00:00 mouth in [place] 00 :00 the Medical morning. Branch HYDROcodone 2022- No [id number] 1{tbl} Take 1 U nivers -acetaminop 04-26 tablet by it y of hen 10-325 00:00: 00:00 mouth [place] mg tablet 00 :00 every 6 Medical (six) Branch hours as needed for Pain (scale 7-10). Indication s: acute pain docusate 2022- No [id number] 100mg Take 1 Univers 100 mg 04-26 capsule by ity of capsule 00:00: 05:59 mouth in [place] 00 :00 the [facility] morning Branch for 30 days. docusate 2022- No [id number] 100mg Take 1 Univers 100 mg 04-26 capsule by ity of capsule 00:00: 05:59 mouth in [place] 00 :00 the [facility] morning Branch for 30 days. docusate 2022- No [id number] 100mg Take 1 Univers 100 mg 04-26 capsule by ity of capsule 00:00: 05:59 mouth in [place] 00 :00 the [facility] for 30 days. NaCl 0.9% No 1000mL at 999 Uni vers (NS) bolus 04-2512 mL/hr, ity of infusion 23:30: 01:21 1,000 mL, [place] 1,000 mL 00 :00 IV Medical Infusion, Branch ONCE, 1 dose, On Sat04/25/22 at 1730, STAT NaCl 0.9% No 1000mL at 999 Uni vers (NS) bolus 04-2512 mL/hr, ity of infusion 23:30: 01:21 1,000 mL, [place] 1,000 mL 00 :00 IV Medical Infusion, Branch ONCE, 1 dose, On Sat04/25/22 at 1730, STAT carvediloL 2022- No 1 tablet Un you 12.5 mg 04-25 with food ity of tablet 23:18: 00:00 [place] 50 :00 Medical Branch carvediloL 2022- No 1 tablet Un you 12.5 mg 04-25 with food ity of tablet 23:18: 00:00 [place] 50 :00 Medical Branch ketorolac 2021-04- No 15mg 15 mg, Unive rs (TORADOL) 06-09 Intramuscu ity of injection 20:30: 19:47 [place], ONCE, [place] 15 mg 00 :00 1 dose, On Medical [place] [facility] 04/08/22 at 1430, Routine traMADol [...] 00 :00 dose, On Medi brandy mg [place] 02/06/22 at 2015, Routine OLANZapine 2021-04 Yes 5mg Take 1 Unive rs 5 mg tablet 0-26 tablet by ity of 00:00: mouth in [place] 00 the Medical morning. Branch polyethylen 2021-04 Yes 17g Take 1 Univ ers e glycol 0-26 Packet by ity of 3350 17 00:00: mouth in [place] gram [facility] [place] 00 the Medical morning. Branch OLANZapine 2021-04 Yes 5mg Take 1 Unive rs 5 mg tablet 0-26 tablet by ity of 00:00: mouth in [place] 00 the Medical morning. Branch polyethylen 2021-04 Yes 17g Take 1 Univ ers e glycol 0-26 Packet by ity of 3350 17 00:00: mouth in [place] gram powder 00 the Medical morning. Branch OLANZapine 2021-04 Yes 5mg Take 1 Unive rs 5 mg tablet 0-26 tablet by ity of 00:00: mouth in [place] 00 the Medical morning. Branch polyethylen 2021-04 Yes 17g Take 1 Univ ers e glycol 0-26 Packet by ity of 3350 17 00:00: mouth in [place] gram powder 00 the Medical morning. Branch OLANZapine 2021-04 Yes 5mg Take 1 Unive rs 5 mg tablet 0-26 tablet by ity of 00:00: mouth in [place] 00 the Medical morning. Branch polyethylen 2021-04 Yes 17g Take 1 Univ ers e glycol 0-26 Packet by ity of 3350 17 00:00: mouth in [place] gram powder 00 the Medical morning. Branch OLANZapine 2021-04- No 5mg Take 1 Univ ers 5 mg tablet 0-26 01-12 tablet by it y of 00:00: 00:00 mouth in [place] 00 :00 the Medical morning. Branch polyethylen 2021-04- No 17g Take 1 Uni vers e glycol 0-26 01-12 Packet by ity o f 3350 17 00:00: 00:00 mouth in [place] gram powder 00 :00 the Medical morning. Branch traZODone 2021-04 Yes 100mg Take 100 Uni vers 100 mg 0-25 mg by ity of tablet 19:56: mouth at [place] [address] bedtime. Medical Branch losartan 2021-04 Yes 100mg Take 100 Univ ers 100 mg 0-25 mg by ity of tablet 19:56: mouth [place] [address] daily. Medical Branch gabapentin 2021-04 Yes 300mg Take 300 Un you 300 mg 0-25 mg by ity of capsule 19:56: mouth at [place] [address] bedtime. Medical Branch QUEtiapine 2021-04 Yes 500mg Take 500 Un you 400 mg 0-25 mg by ity of tablet 19:56: mouth in [place] [address] the Medical morning. Branch Patient reports that she has real bad anxiety, her doctor just upped her dosage to 500 mg omeprazole 2021-04 Yes 20mg Take 20 mg U nivers 20 mg 0-25 by mouth ity of tablet 19:56: daily. [address] carvediloL 2021-04 Yes 1 tablet Uni vers 12.5 mg 0-25 with food ity of tablet 19:56: [address] tiZANidine 2021-04 Yes 1 tablet Uni vers 2 mg tablet 0-25 as needed ity of 19:56: [address] Branch traZODone 2021-04 Yes 100mg Take 100 Uni vers 100 mg 0-25 mg by ity of tablet 19:56: mouth at [place] [address] bedtime. Medical Branch losartan 2021-04 Yes 100mg Take 100 Univ ers 100 mg 0-25 mg by ity of tablet 19:56: mouth [place] [address] daily. Medical Branch gabapentin 2021-04 Yes 300mg Take 300 Un you 300 mg 0-25 mg by ity of capsule 19:56: mouth at [place] [address] bedtime. Medical Branch QUEtiapine 2021-04 Yes 500mg Take 500 Un you 400 mg 0-25 mg by ity of tablet 19:56: mouth in [place] [address] the Medical morning. Branch Patient reports that she has real bad anxiety, her doctor just upped her dosage to 500 mg omeprazole 2021-04 Yes 20mg Take 20 mg U nivers 20 mg 0-25 by mouth ity of tablet 19:56: daily. [address] carvediloL 2021-04 Yes 1 tablet Uni vers 12.5 mg 0-25 with food ity of tablet 19:56: [address] tiZANidine 2021-04 Yes 1 tablet Uni vers 2 mg tablet 0-25 as needed ity of 19:56: [address] traZODone 2021-04 Yes 100mg Take 100 Uni vers 100 mg 0-25 mg by ity of tablet 19:56: mouth at [place] [address] bedtime. Medical Branch losartan 2021-04 Yes 100mg Take 100 Univ ers 100 mg 0-25 mg by ity of tablet 19:56: mouth [place] [address] daily. Medical Branch gabapentin 2021-04 Yes 300mg Take 300 Un you 300 mg 0-25 mg by ity of capsule 19:56: mouth at [place] [address] bedtime. [facility] Branch QUEtiapine 2021-04 Yes 500mg Take 500 Un you 400 mg 0-25 mg by ity of tablet 19:56: mouth in [place] [address] the Medical morning. [place] Patient reports that she has real bad anxiety, her doctor just upped her dosage to 500 mg omeprazole 2021-04 Yes 20mg Take 20 mg U nivers 20 mg 0-25 by mouth ity of tablet 19:56: daily. [address] carvediloL 2021-04 Yes 1 tablet Uni vers 12.5 mg 0-25 with food ity of tablet 19:56: [address] tiZANidine 2021-04 Yes 1 tablet Uni vers 2 mg tablet 0-25 as needed ity of 19:56: [address] ARIPiprazol 2021-04- No 10mg Take 10 mg Univers e 10 mg 0-25 10-25 by mouth ity of tablet 15:53: 00:00 daily. [place] 25 :00 [facility] Branch busPIRone 2021-04- No 15mg Take 15 mg U nivers 15 mg 0-25 10-25 by mouth ity of tablet 15:53: 00:00 [place] needed. [place] 25 :00 [facility] OLANZapine 2021-04 Yes 5mg 5 mg, Univer s (ZyPREXA) 0-25 Oral, ity of tablet 5 mg 14:00: DAILY, [place] 00 First dose Medical on [facility] 02/06/22 at 0900, Until Discontinu ed, Routine QUEtiapine 2021-04 Yes 500mg 500 mg, Uni vers (SEROQUEL) 0-25 Oral, ity of tablet 500 14:00: DAILY, [place] mg 00 First dose Medical on [facility] 02/06/22 at 0900, Until Discontinu ed, Routine losartan 2021-04 Yes 100mg 100 mg, Unive rs (COZAAR) 0-25 Oral, ity of tablet 100 14:00: DAILY, [place] mg 00 First dose Medical on [facility] 02/06/22 at 0900, Until Discontinu ed, Routine acetaminoph 2021-04 Yes 650mg 650 mg, Un you en 0-25 Oral, ity of (TYLENOL) 06:15: Q6HPRN, [place] tablet 650 34 Starting Medic al mg on [facility] 02/06/22 at 0115, Until Discontinu ed, Routine, Pain (scale 1-3) traZODone 2021-04 Yes 100mg 100 mg, Univ ers (DESYREL) 0-25 Oral, QHS, ity of tablet 100 02:00: First dose [place] mg 00 on [facility] 02/05/22 Branch at 2100, Until Discontinu ed, Routine sennosides- 2021-04 Yes 1{tbl} Take 1 Un you docusate 0-25 tablet by ity of sodium 00:00: mouth in [place] 8.6-50 mg 00 the Medical per tablet morning Branch and 1 tablet in the evening. sennosides- 2021-04 Yes 1{tbl} Take 1 Un you docusate 0-25 tablet by ity of sodium 00:00: mouth in [place] 8.6-50 mg 00 the Medical per tablet morning Branch and 1 tablet in the evening. sennosides- 2021-04 Yes 1{tbl} Take 1 Un you docusate 0-25 tablet by ity of sodium 00:00: mouth in [place] 8.6-50 mg 00 the Medical per tablet morning Branch and 1 tablet in the evening. sennosides- 2021-04 Yes 1{tbl} Take 1 Un you docusate 0-25 tablet by ity of sodium 00:00: mouth in [place] 8.6-50 mg 00 the Medical per tablet morning Branch and 1 tablet in the evening. sennosides- 2021-04- No 1{tbl} Take 1 U nivers docusate 0-25 01-12 tablet by ity o f sodium 00:00: 00:00 mouth in [place] 8.6-50 mg 00 :00 the Medical per tablet morning Branch and 1 tablet in the evening. diatrizoate 2021-04 No [id number] 60mL 60 mL, Univers calista-diatriz 0-24 10-24 [...] dose Medical (after Branch last reorder) on Sat02/05/22 at 0800, Until Discontinu ed, Routine sennosides- [...] 17 g 00 First dose Medical on [place] Branch 02/04/22 at 1945, Until Discontinu ed, Routine HYDROcodone 2021-04 Yes 1{tbl} 1 tablet, Univers -acetaminop 0-24 Oral, ity of hen (NORCO 00:37: Q6HPRN, [place] 5) 5-325 mg 43 Starting Medi brandy tablet 1 on [place] Branch tablet 02/04/22 at 1937, Until Discontinu ed, Routine, Pain (scale 4-6) ondansetron 2021-04 Yes 4mg 4 mg, Slow Univers (ZOFRAN 0-23 IV Push, ity of (PF)) 16:21: Q6HPRN, [place] injection 4 32 Nausea and Me dical mg Vomiting Branch (N/V), Starting on Sat02/04/22 at 1121
Do ses of ondansetro n [...] Yes 10mg 10 mg, Univ ers (APRESOLINE 0-22 Slow IV ity o f ) injection 23:45: Push, [place] 10 mg 03 Q6HPRN, Medical Starting Branch on 02/03/22 at 1845, Until Discontinu ed, Routine, DBP=>10 0; SBP=>160 NaCl 0.9% 2021-04- No 1000mL at 125 Uni vers (NS) IV 0-22 10-25 mL/hr, IV ity of infusion 23:45: 18:45 Infusion, [place] 1,000 mL 00 :46 CONTINUOUS Medic al , Starting Branch on 02/03/22 at 1845, Until 02/06/22 at 1345, Routine bisacodyL 2021-04- No 10mg 10 mg, Unive rs (DULCOLAX) 0-22 Rectal, ity o f suppository 23:45: 23:30 ONCE, 1 [place] 10 mg 00 :00 dose, On Medical Sat Branch 02/03/22 at 1845, Routine proMETHazin 2021-04 Yes 25mg 25 mg, IV U nivers e 0-22 Piggyback, ity of (PHENERGAN) 22:37: Q6HPRN, [place] 25 mg in 45 Starting Medical NaCl 0.9% on Sat Branch (NS) 50 mL 02/03/22 IV at 1737, piggyback Until Discontinu ed, [place], Nausea and Vomiting (N/V), N/V unresponsi ve to Ondansetro n morpHINE (2 2021-04 Yes 2mg 2 mg, Slow Univers mg/mL) 0 IV Push, ity of injection 2 22:35: Q4HPRN, [place] mg 47 Starting Medical on Sat Branch 02/03/22 at 1735, Until Discontinu ed, Routine, Pain (scale 7-10) proMETHazin 2021-04- No 25mg 25 mg, IV Univers e 02-03 Piggyback, ity of (PHENERGAN) 18:30: 18:27 ONCE, 1 [place] 25 mg in 00 :00 dose, On Medical NaCl 0.9% Sat Branch (NS) 50 mL 02/03/22 IV at 1330, piggyback [place] iopamidol 2021-04- No [id number] 80mL 80 mL, Univers (ISOVUE 02-03 Intravenou ity o f 370-500 mL) 17:45: 18:00 s, ONCE, 1 [place] injection 00 :00 dose, On Medica l 80 mL Sat Branch 02/03/22 at 1300, Routine gabapentin 2021-04- No 1{capsu Take 1 U nivers 300 mg 02-03 le} capsule by ity of capsule 17:32: 00:00 mouth in [place] 31 :00 the Medical morning Branch and 1 capsule at noon and 1 capsule in the evening. NaCl 0.9% 2021-04- No 1000mL at 999 Uni vers (NS) bolus 0- mL/hr, ity of infusion 16:45: 16:49 1,000 mL, [place] 1,000 mL 00 :00 IV Medical Piggyback, Branch ONCE, 1 dose, On 02/03/22 at 1145, STAT ondansetron 2021-04- No 4mg 4 mg, Slow Univers (ZOFRAN 02-03 IV Push, ity of (PF)) 16:15: 16:08 ONCE, 1 [place] injection 4 00 :00 dose, On Medi brandy mg Sat Branch 02/03/22 at 1115, [place] morpHINE (4 2021-04- No 4mg 4 mg, Slow Univers mg/mL) 002-03 IV Push, ity of injection 4 16:15: [...] 01/26/22 at 1700, STAT iopamidol 2021-04- No [id number] 75mL 75 mL, U nivers (ISOVUE 0-14 [...] by ity of capsule 19:45: mouth in [place] [id number] the Medical morning Branch and 1 capsule at noon and 1 capsule in the evening. tiZANidine 2021-04 Yes 1 tablet Uni vers 2 mg tablet 0-14 as needed ity of 19:45: [address] Branch Tramadol 2021-04- No [id number] 100mg Take 1 Unive rs 100 mg 0-14 10-22 tablet by ity of tablet 00:00: 04:59 mouth [place] 00 :00 every 24 Medical ([facility]- Branch ur) hours as needed for Pain (scale 4-6) or Pain (scale 7-10) for up to 7 days. Indication s: acute pain ondansetron No 4mg 4 mg, Slow Univers (ZOFRAN 11-02 IV Push, ity of (PF)) 12:30: 12:28 ONCE, 1 [place] injection 4 00 :00 dose, On Medi brandy mg [facility] Branch 11/02/21 at 0730, [place] morpHINE (4 No 4mg 4 mg, Slow Univers mg/mL) 11-02 IV Push, ity of injection 4 12:30: 12:30 ONCE, 1 [place] mg 00 :00 dose, On Medical [facility] Branch 11/02/21 at 0730, STAT iopamidol 2021- No [id number] 50mL 50 mL, U nivers (ISOVUE 11-02 Intravenou ity o f 370-500 mL) 12:16: 12:16 s, ONCE, 1 [place] injection 00 :00 dose, On Medica l 50 mL [facility] Branch 11/02/21 at 0730, Routine ondansetron No 4mg 4 mg, Slow Univers (ZOFRAN 11-02 IV Push, ity of (PF)) 11:00: 10:41 ONCE, 1 [place] injection 4 00 :00 dose, On Medi brandy mg [facility] Branch 11/02/21 at 0600, [place] FENTanyl PF No 75ug 75 mcg, Un you (SUBLIMAZE 11-02-21 Slow IV ity o f (PF)) 11:00: 10:42 Push, [place] injection 00 :00 ONCE, 1 Medical 75 mcg dose, On Branch [place] 11/02/21 at 0600, STAT ondansetron 2021-0 Yes [id number] 4mg Take 1 Univers 4 mg 7-21 tablet by ity of disintegrat 00:00: mouth [place] ing tablet 00 every 8 Medica l (eight) Branch hours as needed for Nausea and Vomiting (N/V). ondansetron 2021-0 Yes [id number] 4mg Take 1 Univers 4 mg 7-21 tablet by ity of disintegrat 00:00: mouth [place] ing tablet 00 every 8 Medica l (eight) Branch hours as needed for Nausea and Vomiting (N/V). ondansetron 2021-0 Yes [id number] 4mg Take 1 Univers 4 mg 7-21 tablet by ity of disintegrat 00:00: mouth [place] ing tablet 00 every 8 Medica l (eight) Branch hours as needed for Nausea and Vomiting (N/V). ondansetron 2021-0 Yes [id number] 4mg Take 1 Univers 4 mg 7-21 tablet by ity of disintegrat 00:00: mouth [place] ing tablet 00 every 8 Medica l (eight) Branch hours as needed for Nausea and Vomiting (N/V). ondansetron 2021-0 Yes [id number] 4mg Take 1 Univers 4 mg 7-21 tablet by ity of disintegrat 00:00: mouth [place] ing tablet 00 every 8 Medica l (eight) Branch hours as needed for Nausea and Vomiting (N/V). ondansetron 2-0 Yes [id number] 4mg Take 1 Univers 4 mg 7-21 tablet by ity of disintegrat 00:00: mouth [place] ing tablet 00 every 8 Medica l (eight) Branch hours as needed for Nausea and Vomiting (N/V). ondansetron 2-0 2022- No [id number] 4mg Take 1 Univers 4 mg 7-21 01-12 tablet by ity of disintegrat 00:00: 00:00 [place] ing tablet 00 :00 every 8 Medica l (eight) Branch hours as needed for Nausea and Vomiting (N/V). ondansetron 3- No [id number] 4mg Take 1 Univers 4 mg 7-21 -12 tablet by ity of disintegrat 00:00: 00:00 mouth [place] ing tablet 00 :00 every 8 Medica l (eight) Branch hours as needed for Nausea and Vomiting (N/V). ARIPiprazol 0 Yes 10mg Take 10 mg Univers e 10 mg 6-18 by mouth ity of tablet 22:55: daily. [address] busPIRone 2021-0 Yes 15mg Take 15 mg Un you 15 mg 6-18 by mouth ity of tablet 22:55: as needed. [address] omeprazole 0 Yes 20mg Take 20 mg U nivers 20 mg 6-18 by mouth ity of tablet 22:55: daily. [address] ARIPiprazol Yes 10mg Take 10 mg Univers e 10 mg 6-18 by mouth ity of tablet 22:55: daily. [address] busPIRone 0 Yes 15mg Take 15 mg Un you 15 mg 6-18 by mouth ity of tablet 22:55: as needed. [address] omeprazole 0 Yes 20mg Take 20 mg U nivers 20 mg 6-18 by mouth ity of tablet 22:55: daily. [address] ARIPiprazol 0 Yes 10mg Take 10 mg Univers e 10 mg 6-18 by mouth ity of tablet 22:55: daily. [address] busPIRone 2021-0 Yes 15mg Take 15 mg Un you 15 mg 6-18 by mouth ity of tablet 22:55: as needed. [address] omeprazole 0 Yes 20mg Take 20 mg U nivers 20 mg 6-18 by mouth ity of tablet 22:55: daily. [address] ARIPiprazol 2021-0 Yes 10mg Take 10 mg Univers e 10 mg 6-18 by mouth ity of tablet 22:55: daily. [address] busPIRone 2021-0 Yes 15mg Take 15 mg Un you 15 mg 6-18 by mouth ity of tablet 22:55: as needed. [address] omeprazole 2021-0 Yes 20mg Take 20 mg U nivers 20 mg 6-18 by mouth ity of tablet 22:55: daily. [address] ARIPiprazol Yes 10mg Take 10 mg Univers e 10 mg 6-18 by mouth ity of tablet 22:55: daily. [address] busPIRone Yes 15mg Take 15 mg Un you 15 mg 6-18 by mouth ity of tablet 22:55: as needed. [address] omeprazole Yes 20mg Take 20 mg U nivers 20 mg 6-18 by mouth ity of tablet 22:55: daily. [address] HYDROmorphO Yes .2mg 0.2 mg, Uni [...] No .2mg 0.2 mg, Un you ne [id number] Slow IV ity of (DILAUDID) 14:57: 18:05 [...] Fri [place] irrigation 00 :43 09/29/21 at [facility] ical solution 0821, Branch Until Sat09/29/21 at [...] [place] (SENSORCAIN 00 :43 09/29/21 at [place] [facility]) 0.5 0806, Branch % (5 mg/mL) Until [...] 1000mL at 42 Unive rs ringers IV 09-29-17 mL/hr, ity of infusion 11:30: 11:49 1,000 mL, [place] 1,000 mL 00 :00 IV Medical Infusion, Branch ONCE, 1 dose, On Sat09/29/21 at 0630, Routine, DSU Pre-op traZODone Yes 100mg Take 100 Uni vers 100 mg 6-17 mg by ity of tablet 11:00: mouth at [place] [address] bedtime. Medical Branch losartan 2021-0 Yes 100mg Take 100 Univ ers 100 mg 6-17 mg by ity of tablet 11:00: mouth [place] [address] daily. Medical Branch gabapentin 2021-0 Yes 300mg Take 300 Un you 300 mg 6-17 mg by ity of capsule 11:00: mouth 2 [place] 16 (two) Medical times Branch daily. QUEtiapine 2022-0 Yes 400mg Take 400 Un you (SEROQUEL) 6-17 mg by ity of 400 mg 11:00: mouth [place] tablet 16 daily. Medical Patient Branch doesn't like to take it ARIPiprazol 2021-0 Yes 10mg Take 10 mg Univers e 10 mg 6-17 by mouth ity of tablet 11:00: daily. [place] [address] Medical Branch busPIRone 2021-0 Yes 15mg Take 15 mg Un you 15 mg 6-17 by mouth ity of tablet 11:00: as needed. [place] [address] Medical Branch omeprazole 2021-0 Yes 20mg Take 20 mg U nivers 20 mg 6-17 by mouth ity of tablet 11:00: daily. [place] [address] Medical Branch traZODone 2021-0 Yes 100mg Take 100 Uni vers 100 mg 6-17 mg by ity of tablet 11:00: mouth at [place] [address] bedtime. Medical Branch losartan 2021-0 Yes 100mg Take 100 Univ ers 100 mg 6-17 mg by ity of tablet 11:00: mouth [place] 16 daily. Medical Branch gabapentin 0 Yes 300mg Take 300 Un you 300 mg 6-17 mg by ity of capsule 11:00: mouth 2 [place] [address] (two) Medical times Branch daily. QUEtiapine 0 Yes 400mg Take 400 Un you (SEROQUEL) 6-17 mg by ity of 400 mg 11:00: mouth [place] tablet 16 daily. Medical Patient Branch doesn't like to take it ARIPiprazol 2021-0 Yes 10mg Take 10 mg [facility] e 10 mg 6-17 by mouth ity of tablet 11:00: daily. [place] [address] Medical Branch busPIRone 2021-0 Yes 15mg Take 15 mg Un you 15 mg 6-17 by mouth ity of tablet 11:00: as needed. [place] [address] Medical Branch omeprazole 2021-0 Yes 20mg Take 20 mg U nivers 20 mg 6-17 by mouth ity of tablet 11:00: daily. [place] [address] Medical Branch traZODone 2021-0 Yes 100mg Take 100 Uni vers 100 mg 6-17 mg by ity of tablet 11:00: mouth at [place] [address] bedtime. Medical Branch losartan 2021-0 Yes 100mg Take 100 Univ ers 100 mg 6-17 mg by ity of tablet 11:00: mouth [place] 16 daily. Medical Branch gabapentin 2021-0 Yes 300mg Take 300 Un you 300 mg 6-17 mg by ity of capsule 11:00: mouth 2 [place] [address] (two) Medical times Branch daily. QUEtiapine 2021-0 Yes 400mg Take 400 Un you (SEROQUEL) 6-17 mg by ity of 400 mg 11:00: mouth [place] tablet 16 daily. Medical Patient Branch doesn't like to take it ARIPiprazol 2021-0 Yes 10mg Take 10 mg [facility] e 10 mg 6-17 by mouth ity of tablet 11:00: daily. [place] [address] Medical Branch busPIRone 2021-0 Yes 15mg Take 15 mg Un you 15 mg 6-17 by mouth ity of tablet 11:00: as needed. [place] [address] Medical Branch omeprazole 2021-0 Yes 20mg Take 20 mg U nivers 20 mg 6-17 by mouth ity of tablet 11:00: daily. [place] [address] Medical Branch traZODone 2021-0 Yes 100mg Take 100 Uni vers 100 mg 6-17 mg by ity of tablet 11:00: mouth at [place] [address] bedtime. Medical Branch losartan 2021-0 Yes 100mg Take 100 Univ ers 100 mg 6-17 mg by ity of tablet 11:00: mouth [place] 16 daily. Medical Branch gabapentin 2021-0 Yes 300mg Take 300 Un you 300 mg 6-17 mg by ity of capsule 11:00: mouth 2 [place] [address] (two) Medical times Branch daily. QUEtiapine 2021-0 Yes 400mg Take 400 Un you (SEROQUEL) 6-17 mg by ity of 400 mg 11:00: mouth [place] tablet 16 daily. Medical Patient Branch doesn't like to take it traZODone 2021-0 Yes 100mg Take 100 Uni vers 100 mg 6-17 mg by ity of tablet 11:00: mouth at [place] [address] bedtime. Medical Branch losartan 2021-0 Yes 100mg Take 100 Univ ers 100 mg 6-17 mg by ity of tablet 11:00: mouth [place] 16 daily. Medical Branch gabapentin 2021-0 Yes 300mg Take 300 Un you 300 mg 6-17 mg by ity of capsule 11:00: mouth 2 [place] [address] (two) Medical times Branch daily. QUEtiapine 2022-0 [...] by ity of tablet 11:00: mouth at [place] 16 bedtime. Medical Branch losartan 2-0 Yes 100mg Take 100 Univ ers 100 mg 6-17 mg by ity of tablet 11:00: mouth [place] 16 daily. Medical Branch gabapentin 2-0 Yes 300mg Take 300 Un you 300 mg 6-17 mg by ity of capsule 11:00: mouth 2 [place] 16 (two) Medical times Branch daily. QUEtiapine [...] by ity of capsule 11:00: mouth 2 [place] 16 (two) Medical times Branch daily. QUEtiapine 2022-0 Yes 400mg Take 400 Un you (SEROQUEL) 6-17 mg by ity of 400 mg 11:00: mouth [place] tablet 16 daily. Medical Patient Branch doesn't like to take it aspirin 325 2021-0 2021- No [id number] 325mg Take 1 [facility] mg tablet 09-29- 4106 tablet by ity of 00:00: 04:59 mouth 2 [place] 00 :00 (two) Medical times Branch daily with meals for 28 days. aspirin 325 2021-0 2021- No [id number] 325mg Take 1 [facility] mg tablet 09-29- 4106 tablet by ity of 00:00: 04:59 mouth 2 [place] 00 :00 (two) Medical times Branch daily with meals for 28 days. aspirin 325 2021-2021- No [id number] 325mg Take 1 [facility] mg tablet 09-29 4106 tablet by ity of 00:00: 04:59 mouth 2 [place] 00 :00 (two) Medical times Branch daily with meals for 28 days. aspirin 325 2021-2021- No [id number] 325mg Take 1 [facility] mg tablet 09-29 4106 tablet by ity of 00:00: 04:59 mouth 2 [place] 00 :00 (two) Medical times [place] daily with meals for 28 days. ARIPiprazol 0 Yes 10mg Take 10 mg Univers e 10 mg 6-09 by mouth ity of tablet 15:58: daily. [address] busPIRone 0 Yes 15mg Take 15 mg Un you 15 mg 6-09 by mouth ity of tablet 15:58: as needed. [address] omeprazole 2021-0 Yes 20mg Take 20 mg U nivers 20 mg 6-09 by mouth ity of tablet 15:58: daily. [address] ARIPiprazol 2021-0 Yes 10mg Take 10 mg [facility] e 10 mg 6-09 by mouth ity of tablet 15:58: daily. [address] busPIRone 2021-0 Yes 15mg Take 15 mg Un you 15 mg 6-09 by mouth ity of tablet 15:58: as needed. [address] omeprazole 2021-0 Yes 20mg Take 20 mg U nivers 20 mg 6-09 by mouth ity of tablet 15:58: daily. [place] 03 Medical Branch ARIPiprazol 0 Yes 10mg Take 10 mg [facility] e 10 mg 6-09 by mouth ity of tablet 15:58: daily. [place] [address] Medical Branch busPIRone 2021-0 Yes 15mg Take 15 mg Un you 15 mg 6-09 by mouth ity of tablet 15:58: as needed. [place] [address] Medical Branch omeprazole 2021-0 Yes 20mg Take 20 mg U nivers 20 mg 6-09 by mouth ity of tablet 15:58: daily. [place] [address] Medical Branch traZODone 2021-0 Yes 100mg Take [...] 28 (two) Medical times Branch daily. QUEtiapine 2-0 [...] doesn't like to take it proMETHazin 2021-0 2- No 25mg Take 25 mg Univers e [...] 2100, Until Discontinu ed, Routine lactated 0 202- No 500mL at 999 Unive rs ringers IV 5-27 05-27 mL/hr, 500 it y of infusion 01:30: 01:17 mL, [place] 500 mL 00 :00 Intravenou Medical s, ONCE, 1 Branch dose, On [place] 09/07/21 at 2030, Routine lipase-prot 0 Yes [id number] 1{capsu Take 1 [facility] ease-amylas 5-27 le} capsule by it y of e 00:00: mouth 3 [place] 12,000-38,0 00 (three) Medic al 00 -60,000 times Branch unit daily with capsule meals. psyllium Yes [id number] 1{packe Take 1 [facility] husk 3.4 5-27 t} Packet by ity of gram oral 00:00: mouth 2 [place] powder 00 (two) Medical packet times Branch daily. sucralfate Yes [id number] 1g Take 1 U nivers 1 gram 5-27 tablet by ity of tablet 00:00: mouth [place] 00 before Medical meals and Branch at bedtime. ursodioL 0 Yes [id number] 500mg Take 1 Un you 500 mg 5-27 tablet by ity of tablet 00:00: mouth 2 [place] 00 (two) Medical times Branch daily. dicyclomine Yes [id number] 10mg Take 1 [facility] 10 mg 5-27 capsule by ity of capsule 00:00: mouth 3 [place] 00 (three) Medical times Branch daily. proMETHazin Yes [id number] 12.5mg Take 0.5 Univers e 25 mg [...] 7-10). Indication s: chronic pain pantoprazol Yes [id number] 40mg Take 1 [facility] e 40 mg EC 5-27 tablet by ity of tablet 00:00: mouth [place] 00 daily. Medical Branch lipase-prot Yes [id number] 1{capsu Take 1 [facility] ease-amylas 5-27 le} capsule by it y of e 00:00: mouth 3 [place] 12,000-38,0 00 (three) Medic al 00 -60,000 times Branch unit daily with capsule meals. psyllium Yes [id number] 1{packe Take 1 [facility] husk 3.4 5-27 t} Packet by ity of gram oral 00:00: mouth 2 [place] powder 00 (two) Medical packet times Branch daily. sucralfate Yes [id number] 1g Take 1 U nivers 1 gram 5-27 tablet by ity of tablet 00:00: mouth [place] 00 before Medical meals and Branch at bedtime. ursodioL Yes [id number] 500mg Take 1 Un you 500 mg 5-27 tablet by ity of tablet 00:00: mouth 2 [place] 00 (two) Medical times Branch daily. dicyclomine Yes [id number] 10mg Take 1 [facility] 10 mg 5-27 capsule by ity of capsule 00:00: mouth 3 [place] 00 (three) Medical times Branch daily. proMETHazin Yes [id number] 12.5mg Take 0.5 Univers e 25 mg [...] 7-10). Indication s: chronic pain pantoprazol Yes [id number] 40mg Take 1 [facility] e 40 mg EC 5-27 tablet by ity of tablet 00:00: mouth [place] 00 daily. Medical Branch lipase-prot Yes [id number] 1{capsu Take 1 [facility] ease-amylas 5-27 le} capsule by it y of e 00:00: mouth 3 [place] 12,000-38,0 00 (three) Medic al 00 -60,000 times Branch unit daily with capsule meals. psyllium 0 Yes [id number] 1{packe Take 1 [facility] husk 3.4 5-27 t} Packet by ity of gram oral 00:00: mouth 2 [place] powder 00 (two) Medical packet times Branch daily. ursodioL 2021-0 Yes [id number] 500mg Take 1 Un you 500 mg 5-27 tablet by ity of tablet 00:00: mouth 2 [place] 00 (two) Medical times Branch daily. dicyclomine 0 Yes [id number] 10mg Take 1 [facility] 10 mg 5-27 capsule by ity of capsule 00:00: mouth 3 [place] 00 (three) Medical times Branch daily. proMETHazin 0 Yes [id number] 12.5mg Take 0.5 Univers e 25 mg [...] Indication s: chronic pain lipase-prot 0 Yes [id number] 1{capsu Take 1 [facility] ease-amylas 5-27 le} capsule by it y of e 00:00: mouth 3 [place] 12,000-38,0 00 (three) Medic al 00 -60,000 times Branch unit daily with capsule meals. psyllium 2021-0 Yes [id number] 1{packe Take 1 [facility] husk 3.4 5-27 t} Packet by ity of gram oral 00:00: mouth 2 [place] powder 00 (two) Medical packet times Branch daily. ursodioL 2021-0 Yes [id number] 500mg Take 1 Un you 500 mg 5-27 tablet by ity of tablet 00:00: mouth 2 [place] 00 (two) Medical times Branch daily. dicyclomine 2021-0 Yes [id number] 10mg Take 1 [facility] 10 mg 5-27 capsule by ity of capsule 00:00: mouth 3 [place] 00 (three) Medical times Branch daily. proMETHazin Yes [id number] 12.5mg Take 0.5 [facility] e 25 mg [...] Indication s: chronic pain lipase-prot 2021-0 Yes [id number] 1{capsu Take 1 [facility] ease-amylas 5-27 le} capsule by it y of e 00:00: mouth 3 [place] 12,000-38,0 00 (three) Medic al 00 -60,000 times Branch unit daily with capsule meals. psyllium Yes [id number] 1{packe Take 1 [facility] husk 3.4 5-27 t} Packet by ity of gram oral 00:00: mouth 2 [place] powder 00 (two) Medical packet times Branch daily. ursodioL 0 Yes [id number] 500mg Take 1 Un you 500 mg 5-27 tablet by ity of tablet 00:00: mouth 2 [place] 00 (two) Medical times Branch daily. dicyclomine 0 Yes [id number] 10mg Take 1 [facility] 10 mg 5-27 capsule by ity of capsule 00:00: mouth 3 [place] 00 (three) Medical times Branch daily. proMETHazin 2021-0 Yes [id number] 12.5mg Take 0.5 [facility] e 25 mg [...] Indication s: chronic pain lipase-prot 2021-0 Yes [id number] 1{capsu Take 1 [facility] ease-amylas 5-27 le} capsule by it y of e 00:00: mouth 3 [place] 12,000-38,0 00 (three) Medic al 00 -60,000 times Branch unit daily with capsule meals. psyllium 2021-0 Yes [id number] 1{packe Take 1 [facility] husk 3.4 5-27 t} Packet by ity of gram oral 00:00: mouth 2 [place] powder 00 (two) Medical packet times Branch daily. ursodioL 2021-0 Yes [id number] 500mg Take 1 Un you 500 mg 5-27 tablet by ity of tablet 00:00: mouth 2 [place] 00 (two) Medical times Branch daily. dicyclomine 2021-0 Yes [id number] 10mg Take 1 [facility] 10 mg 5-27 capsule by ity of capsule 00:00: mouth 3 [place] 00 (three) Medical times Branch daily. proMETHazin 2021-0 Yes [id number] 12.5mg Take 0.5 [facility] e 25 mg [...] Indication s: chronic pain lipase-prot 2021-0 Yes [id number] 1{capsu Take 1 [facility] ease-amylas 5-27 le} capsule by it y of e 00:00: mouth 3 [place] 12,000-38,0 00 (three) Medic al 00 -60,000 times Branch unit daily with capsule meals. psyllium 2021-0 Yes [id number] 1{packe Take 1 [facility] husk 3.4 5-27 t} Packet by ity of gram oral 00:00: mouth 2 [place] powder 00 (two) Medical packet times Branch daily. ursodioL 2021-0 Yes [id number] 500mg Take 1 Un you 500 mg 5-27 tablet by ity of tablet 00:00: mouth 2 [place] 00 (two) Medical times Branch daily. dicyclomine 2021-0 Yes [id number] 10mg Take 1 [facility] 10 mg 5-27 capsule by ity of capsule 00:00: mouth 3 [place] 00 (three) Medical times Branch daily. proMETHazin 2021-0 Yes [id number] 12.5mg Take 0.5 [facility] e 25 mg [...] Indication s: chronic pain lipase-prot 2021-0 Yes [id number] 1{capsu Take 1 [facility] ease-amylas 5-27 le} capsule by it y of e 00:00: mouth 3 [place] 12,000-38,0 00 (three) Medic al 00 -60,000 times Branch unit daily with capsule meals. psyllium 0 Yes [id number] 1{packe Take 1 [facility] husk 3.4 5-27 t} Packet by ity of gram oral 00:00: mouth 2 [place] powder 00 (two) Medical packet times Branch daily. ursodioL 2021-0 Yes [id number] 500mg Take 1 Un you 500 mg 5-27 tablet by ity of tablet 00:00: mouth 2 [place] 00 (two) Medical times Branch daily. dicyclomine 2021-0 Yes [id number] 10mg Take 1 [facility] 10 mg 5-27 capsule by ity of capsule 00:00: mouth 3 [place] 00 (three) Medical times Branch daily. proMETHazin 2021-0 Yes [id number] 12.5mg Take 0.5 [facility] e 25 mg [...] scal 7-10). Indication s: chronic pain lipase-prot 2022-0 Yes [id number] 1{capsu Take 1 [facility] ease-amylas 5-27 le} capsule by it y of e 00:00: mouth 3 [place] 12,000-38,0 00 (three) Medic al 00 -60,000 times Branch unit daily with capsule meals. psyllium Yes [id number] 1{packe Take 1 [facility] husk 3.4 5-27 t} Packet by ity of gram oral 00:00: mouth 2 [place] powder 00 (two) Medical packet times Branch daily. ursodioL Yes [id number] 500mg Take 1 Un you 500 mg 5-27 tablet by ity of tablet 00:00: mouth 2 [place] 00 (two) Medical times Branch daily. dicyclomine Yes [id number] 10mg Take 1 [facility] 10 mg 5-27 capsule by ity of capsule 00:00: mouth 3 [place] 00 (three) Medical times Branch daily. proMETHazin Yes [id number] 12.5mg Take 0.5 [facility] e 25 mg [...] 7-10). Indication s: chronic pain lipase-prot Yes [id number] 1{capsu Take 1 [facility] ease-amylas 5-27 le} capsule by it y of e 00:00: mouth 3 [place] 12,000-38,0 00 (three) Medic al 00 -60,000 times Branch unit daily with capsule meals. psyllium 2021-0 Yes [id number] 1{packe Take 1 [facility] husk 3.4 5-27 t} Packet by ity of gram oral 00:00: mouth 2 [place] powder 00 (two) Medical packet times Branch daily. ursodioL 2021-0 Yes [id number] 500mg Take 1 Un you 500 mg 5-27 tablet by ity of tablet 00:00: mouth 2 [place] 00 (two) Medical times Branch daily. dicyclomine 0 Yes [id number] 10mg Take 1 [facility] 10 mg 5-27 capsule by ity of capsule 00:00: mouth 3 [place] 00 (three) Medical times Branch daily. proMETHazin 2021-0 Yes [id number] 12.5mg Take 0.5 [facility] e 25 mg [...] Indication s: chronic pain lipase-prot 0 Yes [id number] 1{capsu Take 1 [facility] ease-amylas 5-27 le} capsule by it y of e 00:00: mouth 3 [place] 12,000-38,0 00 (three) Medic al 00 -60,000 times Branch unit daily with capsule meals. psyllium Yes [id number] 1{packe Take 1 [facility] husk 3.4 5-27 t} Packet by ity of gram oral 00:00: mouth 2 [place] powder 00 (two) Medical packet times Branch daily. ursodioL 0 Yes [id number] 500mg Take 1 Un you 500 mg 5-27 tablet by ity of tablet 00:00: mouth 2 [place] 00 (two) Medical times Branch daily. dicyclomine 0 Yes [id number] 10mg Take 1 [facility] 10 mg 5-27 capsule by ity of capsule 00:00: mouth 3 [place] 00 (three) Medical times Branch daily. proMETHazin 0 Yes [id number] 12.5mg Take 0.5 [facility] e 25 mg [...] Indication s: chronic pain lipase-prot 2021-0 Yes [id number] 1{capsu Take 1 [facility] ease-amylas 5-27 le} capsule by it y of e 00:00: mouth 3 [place] 12,000-38,0 00 (three) Medic al 00 -60,000 times Branch unit daily with capsule meals. psyllium 2021-0 Yes [id number] 1{packe Take 1 [facility] husk 3.4 5-27 t} Packet by ity of gram oral 00:00: mouth 2 [place] powder 00 (two) Medical packet times Branch daily. ursodioL 2021-0 Yes [id number] 500mg Take 1 Un you 500 mg 5-27 tablet by ity of tablet 00:00: mouth 2 [place] 00 (two) Medical times Branch daily. dicyclomine 0 Yes [id number] 10mg Take 1 [facility] 10 mg 5-27 capsule by ity of capsule 00:00: mouth 3 [place] 00 (three) Medical times Branch daily. proMETHazin 0 Yes [id number] 12.5mg Take 0.5 [facility] e 25 mg [...] Indication s: chronic pain lipase-prot 2021-0 Yes [id number] 1{capsu Take 1 [facility] ease-amylas 5-27 le} capsule by it y of e 00:00: mouth 3 [place] 12,000-38,0 00 (three) Medic al 00 -60,000 times Branch unit daily with capsule meals. psyllium 2021-0 Yes [id number] 1{packe Take 1 [facility] husk 3.4 5-27 t} Packet by ity of gram oral 00:00: mouth 2 [place] powder 00 (two) Medical packet times Branch daily. ursodioL 2021-0 Yes [id number] 500mg Take 1 Un you 500 mg 5-27 tablet by ity of tablet 00:00: mouth 2 [place] 00 (two) Medical times Branch daily. dicyclomine 2021-0 Yes [id number] 10mg Take 1 [facility] 10 mg 5-27 capsule by ity of capsule 00:00: mouth 3 [place] 00 (three) Medical times Branch daily. proMETHazin 2021-0 Yes [id number] 12.5mg Take 0.5 Univers e 25 mg [...] Indication s: chronic pain psyllium 2021-0 Yes [id number] 1{packe Take 1 [facility] husk 3.4 5-27 t} Packet by ity of gram oral 00:00: mouth 2 [place] powder 00 (two) Medical packet times Branch daily. dicyclomine 2021-0 Yes [id number] 10mg Take 1 [facility] 10 mg 5-27 capsule by ity of capsule 00:00: mouth 3 (three) Medical times Branch daily. proMETHazin 2021-0 Yes [id number] 12.5mg Take 0.5 [facility] e 25 mg [...] scal 7-10). Indication s: chronic pain psyllium 2022-0 Yes [id number] 1{packe Take 1 [facility] husk 3.4 5-27 t} Packet by ity of gram oral 00:00: mouth 2 [place] powder 00 (two) Medical packet times Branch daily. dicyclomine 2022-0 Yes [id number] 10mg Take 1 [facility] 10 mg 5-27 capsule by ity of capsule 00:00: mouth 3 [place] 00 (three) Medical times Branch daily. proMETHazin 2021-0 Yes [id number] 12.5mg Take 0.5 [facility] e 25 mg [...] Indication s: chronic pain psyllium 2021-0 Yes [id number] 1{packe Take 1 [facility] husk 3.4 5-27 t} Packet by ity of gram oral 00:00: mouth 2 [place] powder 00 (two) Medical packet times Branch daily. dicyclomine 2021-0 Yes [id number] 10mg Take 1 [facility] 10 mg 5-27 capsule by ity of capsule 00:00: mouth 3 00 (three) Medical times Branch daily. proMETHazin 2021-0 Yes [id number] 12.5mg Take 0.5 [facility] e 25 mg [...] Indication s: chronic pain psyllium 2021-0 Yes [id number] 1{packe Take 1 [facility] husk 3.4 5-27 t} Packet by ity of gram oral 00:00: mouth 2 [place] powder 00 (two) Medical packet times Branch daily. proMETHazin 2021-0 Yes [id number] 12.5mg Take 0.5 [facility] e 25 mg 5-27 tablets by ity of tablet 00:00: mouth [place] 00 every 6 Medical (six) Branch hours as needed for Nausea and Vomiting (N/V). psyllium 2021-0 2023- No [id number] 1{packe Take 1 [facility] husk 3.4 5-27 -12 t} Packet by ity o f gram oral 00:00: 00:00 mouth 2 [place] powder 00 :00 (two) Medical packet times Branch daily. proMETHazin 2022- No [id number] 12.5mg Take 0.5 [facility] e 25 mg 5-27 -12 tablets by ity o f tablet 00:00: 00:00 mouth [place] 00 :00 every 6 Medical (six) Branch hours as needed for Nausea and Vomiting (N/V). dicyclomine 2022- No [id number] 10mg Take 1 [facility] 10 mg 5-27 [...] Indication s: chronic pain dicyclomine 2022- No [id number] 10mg Take 1 [facility] 10 mg 5-27 -11 capsule by ity of capsule 00:00: 00:00 mouth 3 [place] 00 :00 (three) Medical times Branch daily. HYDROcodone 2022- No [id number] 1{tbl} Take 1 U nivers -acetaminop 5-27 01-11 tablet by it y of hen 7.5-325 00:00: 00:00 mouth 2 [place] mg per 00 :00 (two) Medical tablet times Branch daily as needed (Pain scal 7-10). Indication s: chronic pain lipase-prot 2021- No [id number] 1{capsu Take 1 [facility] ease-amylas 5-27 10-25 le} capsule by i ty of e 00:00: 00:00 mouth 3 [place] 12,000-38,0 00 :00 (three) Medic al 00 -60,000 times Branch unit daily with capsule meals. ursodioL 2021- No [id number] 500mg Take 1 U nivers 500 mg 5-27 10-25 tablet by ity of tablet 00:00: 00:00 mouth 2 [place] 00 :00 (two) Medical times Branch daily. sucralfate 2021- No [id number] 1g Take 1 [facility] 1 gram 5-27 06-09 tablet by ity of tablet 00:00: 00:00 mouth [place] 00 :00 before Medical meals and Branch at bedtime. pantoprazol 2021- No [id number] 40mg Take 1 [facility] e 40 mg EC 5-27 06-09 tablet by ity of tablet 00:00: 00:00 mouth [place] 00 :00 daily. Medical Branch sucralfate 2021- No [id number] 1g Take 1 [facility] 1 gram 5-27 06-09 tablet by ity of tablet 00:00: 00:00 mouth [place] 00 :00 before Medical meals and Branch at bedtime. pantoprazol 2021- No [id number] 40mg Take 1 [facility] e 40 mg EC 5-27 06-09 tablet by ity of tablet 00:00: 00:00 mouth [place] 00 :00 daily. Medical Branch ursodioL 2021- No [id number] 500mg Take 1 U nivers 500 mg 5-27 05-27 tablet by ity of tablet 00:00: 00:00 mouth 2 [place] 00 :00 (two) Medical times Branch daily. psyllium 2021- No [id number] 1{packe Take 1 [facility] husk 3.4 5-27 05-27 t} Packet by ity o f gram oral 00:00: 00:00 mouth 2 [place] powder 00 :00 (two) Medical packet times Branch daily. lipase-prot 2021- No [id number] 1{capsu Take 1 [facility] ease-amylas 5-27 05-27 le} capsule by i ty of e 00:00: 00:00 mouth 3 [place] 12,000-38,0 00 :00 (three) Medic al 00 -60,000 times Branch unit daily with capsule meals. dicyclomine 2021- No [id number] 10mg Take 1 [facility] 10 mg 5-27 05-27 capsule by ity of capsule 00:00: 00:00 mouth 3 [place] 00 :00 (three) Medical times Branch daily. proMETHazin 2021- No [id number] 12.5mg Take 0.5 Univers e 25 mg 5-27 -27 tablets by ity o f tablet 00:00: 00:00 mouth [place] 00 :00 every 6 Medical (six) Branch hours as needed for Nausea and Vomiting (N/V) for up to 10 days. HYDROcodone 2021- No [id number] 1{tbl} Take 1 U nivers -acetaminop 5-27 -27 tablet by it y of hen 7.5-325 00:00: 00:00 mouth 2 [place] mg per 00 :00 (two) Medical tablet times Branch daily as needed (Pain scal 7-10). Indication s: chronic pain sucralfate 2021- No [id number] 1g Take 1 [facility] 1 gram -27 -27 tablet by ity of tablet 00:00: 00:00 mouth [place] 00 :00 before Medical meals and Branch at bedtime. pantoprazol 2021- No [id number] 40mg Take 1 [facility] e 40 mg EC -27 -27 tablet by ity of tablet 00:00: [...] infusion 2 ONCE, 1 g dose, On [place] 09/07/21 at 0545, Routine HYDROcodone Yes 7.5mg 7.5 mg, Un you -acetaminop 5-25 Oral, Q6H, it y of hen (HYCET) 23:30: First dose [place] 7.5-325 00 (after Medical mg/15 mL last Branch solution modificati 7.5 mg on) on 09/06/21 at 1830, Until Discontinu ed proMETHazin Yes 12.5mg 12.5 mg, Univers e 25 Oral, ity of (PHENERGAN) 18:38: Q6HPRN, [place] tablet 12.5 27 Starting Medi brandy mg on Sat09/06/21 at 1338, Until Discontinu ed, Routine, Nausea and Vomiting (N/V) gadobenate 2021- No [id number] .2mL/kg 15.7 mL Univers dimeglumine 09-06 (0.2 [...] 09-04 Oral, ity of imeth 22:31: Q6HPRN, [place] (MAALOX 21 Starting Medical PLUS / on Mon Branch MAG-AL 09/04/21 at PLUS) 1731, 200-200-20 Until mg/5 mL Discontinu suspension ed, 30 mL Routine, Indigestio n, Heartburn psyllium 0 Yes 1{packe 1 Packet, U nivers husk 09-04 t} Oral, BID, ity of (METAMUCIL 01:00: First dose [place] (SUGAR 00 on [facility] Medical FREE)) 3.4 09/03/21 at Bra nch gram oral 1999, powder Until packet 1 Discontinu Packet ed, Routine HYDROcodone 2021- No 10mg 10 mg, Uni vers -acetaminop 09-04 Oral, BID, i ty of hen (HYCET) 01:00: 22:54 First dose [place] 7.5-325 00 :32 (after Medical mg/15 mL [...] 09-03 Oral, ity of (TYLENOL) 14:40: Q6HPRN, [place] tablet 325 10 Starting Medic al mg on [facility] 09/03/21 at 0940, Until Discontinu ed, Routine, Pain (scale 1-3), Pain (scale 4-6) FENTanyl PF No 50ug 50 mcg, Un you (SUBLIMAZE 09-03 Slow IV ity o f (PF)) 14:39: 16:17 Push, [place] injection 39 :20 Q6HPRN, Medical 50 mcg Starting Branch on [place] 09/03/21 at 0939, Until [place] 09/03/21 at 1117, Routine, Pain (scale 7-10) polyethylen Yes 17g 17 g, Unive rs e glycol 09-02 Oral, ity of 3350 powder 14:00: DAILY, [place] 17 g 00 First dose Medical on [facility] 09/02/21 at 0900, Until Discontinu ed, Routine fenofibrate Yes 134mg 134 mg, Un you micronized 09-02 Oral, ity of (LOFIBRA) 14:00: DAILY, [place] capsule 134 00 First dose Me dical mg on [facility] 09/02/21 at 0900, Until Discontinu ed losartan Yes 100mg 100 mg, Unive rs (COZAAR) 09-02 Oral, ity of tablet 100 14:00: DAILY, [place] mg 00 First dose Medical on [facility] 09/02/21 at 0900, Until Discontinu ed, Routine heparin 0 Yes 5000U 5,000 Univers (porcine) 09-02 Units, ity of injection 13:00: Subcutaneo [place] 5,000 Units 00 us, Q12H, Med ical First dose Branch on [facility] 09/02/21 at 0800, Until Discontinu ed, Routine sennosides 0 Yes 8.6mg 8.6 mg, Uni vers (SENOKOT) 09-02 Oral, BID, ity of tablet 8.6 13:00: First dose [place] mg 00 on [facility] 09/02/21 at Branch 0800, Until Discontinu ed, Routine lipase-prot 2022-0 Yes 1{capsu 1 capsule, Univers ease-amylas 09-02 le} Oral, TID ity of e (CREON) 13:00: MEALS, [place] 12,000-38,0 00 First dose Me dical 00 -60,000 on [facility] unit 09/02/21 at capsule 1 0800, capsule Until Discontinu ed, Routine ursodioL Yes 500mg 500 mg, Unive rs (EUGENE) 09-02 Oral, BID, ity of tablet 500 13:00: First dose [place] mg 00 on [facility] 09/02/21 at Branch 0800, Until Discontinu ed, Routine gabapentin Yes 300mg 300 mg, Uni vers (NEURONTIN) 09-02 Oral, BID, it y of capsule 300 13:00: First dose [place] mg 00 on [facility] 09/02/21 at Branch 0800, Until Discontinu ed, Routine HYDROcodone 2021- No 7.5mg 7.5 mg, U nivers -acetaminop 09-02 Oral, BID, i ty of hen (HYCET) 13:00: 16:17 First dose [place] 7.5-325 00 :46 on [facility] Medical mg/15 mL 09/02/21 at [facility] h solution 0800, 7.5 mg Until Discontinu ed FENTanyl PF 2021- No 25ug 25 mcg, Un you (SUBLIMAZE 09-02 Slow IV ity o f (PF)) 12:56: 12:17 Push, [place] injection 31 :41 Q6HPRN, Medical 25 mcg Starting Branch on [facility] 09/02/21 at 0756, Until 09/03/21 at 0717, Routine, Pain (scale 7-10) traMADoL 2021- No 50mg 50 mg, Univer s (ULTRAM) 09-02 Oral, ity of tablet 50 12:55: 12:17 Q8HPRN, [place] mg 47 :33 Starting Medical on [facility] Branch 09/02/21 at 0755, Until 09/03/21 at 0717, Routine, Pain (scale 4-6) traZODone Yes 100mg 100 mg, Univ ers (DESYREL) 5-21 Oral, QHS, ity of tablet 100 03:30: [...] 25mg 25 mg, IV Univers e 09-02 05-25 Piggyback, ity of (PHENERGAN) 02:39: 18:38 at 200 [place] 25 mg in NS 14 :43 mL/hr Medical 50 mL IV Administer Branc h piggyback over 15 (CNR) Minutes, Q6HPRN, Starting on Sat09/01/21 at 2139, Until Sat09/06/21 at 1338, Routine, N/V unresponsi ve to Ondansetro n, N/V alternatin g with Ondansetro n ondansetron 2021- No 4mg 4 mg, Slow Univers (ZOFRAN 09-02-25 IV Push, ity of (PF)) 02:38: 18:38 [...] times Medical daily. For Branch anxiety divalproex 2021-2021- No 500mg Take 500 U nivers ER 5-20 05-20 mg by ity of (DEPAKOTE 22:21: 00:00 mouth 2 [place] ER) 500 mg 48 :00 (two) Medical 24 hr times Branch tablet daily. For anxiety ondansetron 2021- No 4mg 4 mg, Slow Univers (ZOFRAN 5-20 05-20 IV Push, ity of (PF)) 21:00: 20:10 ONCE, 1 [place] injection 4 00 :00 dose, On [facility] Fri Branch 09/01/21 at 1600, [place] morpHINE [...] brandy 1:1:1 [place] Branch ([facility] 08/27/21 at [facility]) 1500, oral Routine suspension 15 mL FENTanyl PF 2021- No 50ug 50 mcg, Un you (SUBLIMAZE 5-15 05-15 Slow IV ity o f (PF)) 17:49: 17:52 Push, [place] injection 00 :00 ONCE, 1 Medical 50 mcg dose, On Branch 08/27/21 at 1300, STAT morpHINE (4 2021- No 4mg 4 mg, Slow Univers mg/mL) 08-27 05-15 IV Push, ity of injection 4 17:15: 16:22 ONCE, 1 [place] mg 00 :00 dose, On Medical [place] 08/27/21 at 1215, STAT ondansetron 2021- No 4mg 4 mg, Slow Univers (ZOFRAN 08-27 05-15 IV Push, ity of (PF)) 17:15: 16:22 ONCE, 1 [place] injection 4 00 :00 dose, On Medi brandy mg [facility] 08/27/21 at 1215, [place] NaCl 0.9% 2021- No 1000mL at 999 Uni vers (NS) bolus 08-27 05-15 mL/hr, ity of infusion 17:15: 18:59 1,000 mL, [place] as 1,000 mL 00 :00 IV Medical Infusion, Branch ONCE, 1 dose, On [place] 08/27/21 at 1215, [place] iopamidol 2021- No [id number] 100mL 100 mL, Univers (ISOVUE 08-27 05-15 Intravenou ity o f 370-500 mL) 16:45: 16:44 s, ONCE, 1 [place] injection 00 :00 dose, On Medica l 100 mL [facility] 08/27/21 at 1145, Routine traZODone 0 Yes 100mg Take 100 Uni [...] Until Discontinu ed, Routine proMETHazin 2021-0 Yes [id number] 25mg Take 1 Univers e 25 mg 4-16 tablet by ity of tablet 00:00: mouth [place] 00 every 4 Medical (four) Branch hours as needed for Nausea and Vomiting (N/V). proMETHazin 2021-0 Yes [id number] 25mg Take 1 Univers e 25 mg 4-16 tablet by ity of tablet 00:00: mouth [place] 00 every 4 Medical (four) Branch hours as needed for Nausea and Vomiting (N/V). proMETHazin 2021-0 Yes [id number] 25mg Take 1 Univers e 25 mg 4-16 tablet by ity of tablet 00:00: mouth [place] 00 every 4 Medical (four) Branch hours as needed for Nausea and Vomiting (N/V). proMETHazin 2021-0 2022- No [id number] 25mg Take 1 Univers e 25 mg 4-16 05-27 tablet by ity of tablet 00:00: 00:00 mouth [place] 00 :00 every 4 Medical (four) Branch hours as needed for Nausea and Vomiting (N/V). docusate 2021- No [id number] 100mg Take 1 Univers 100 mg 4-16 05-17 capsule by ity of capsule 00:00: 04:59 mouth [place] 00 :00 daily for Medical 30 days. Branch hydrALAZINE 2021- No [id number] 50mg Take 1 Univers 50 mg 4-16 05-17 tablet by ity of tablet 00:00: 04:59 mouth 2 [place] 00 :00 (two) Medical times Branch daily for 30 days. docusate 2021- No [id number] 100mg Take 1 Univers 100 mg 4-16 05-17 capsule by ity of capsule 00:00: 04:59 mouth [place] 00 :00 daily for Medical 30 days. Branch hydrALAZINE 2021- No [id number] 50mg Take 1 Univers 50 mg 4-16 05-17 tablet by ity of tablet 00:00: 04:59 mouth 2 [place] 00 :00 (two) Medical times Branch daily for 30 days. docusate 2021- No [id number] 100mg Take 1 Univers 100 mg 4-16 05-17 capsule by ity of capsule 00:00: 04:59 mouth [place] 00 :00 daily for Medical 30 days. Branch hydrALAZINE 2021- No [id number] 50mg Take 1 Univers 50 mg 4-16 [...] No 5mg 5 mg, Unive rs (NORVASC) 07-28- Oral, ity of tablet 5 mg 15:30: 15:02 ONCE, 1 [place] 00 :[place] dose, On Medical Fri Branch 07/28/21 at 1030, Routine HYDROmorpho No .6mg 0.6 mg, Un you ne [...] HYDROcodone Yes 1{tbl} 1 tablet, Univers -acetaminop 4-14 Oral, ity of hen (NORCO) 18:19: Q6HPRN, [...] On Branch Sat07/26/21 at 2200, Routine magnesium 2021- No 2g [...] First dose [place] mg 00 on [facility] 07/25/21 at Branch 2100, Until Discontinu ed, Routine divalproex Yes 500mg 500 mg, Uni vers (DEPAKOTE) 4-13 Oral, ity of EC tablet 01:00: Q12H, [place] 500 mg 00 First dose Medical on [facility] Branch 07/25/21 at 2000, Until Discontinu ed LORazepam 2021- No .5mg 0.5 mg, Univ ers (ATIVAN) 07-26 Slow IV ity of injection 00:45: 00:07 Push, [place] 0.5 mg 00 :00 ONCE, 1 Medical dose, On Branch [facility] 07/25/21 at 1945, Routine LORazepam Yes .5mg 0.5 mg, Unive rs (ATIVAN) 07-25 Slow IV ity of injection 23:49: Push, [place] 0.5 mg 46 TIDPRN, Medical Starting Branch on [facility] 07/25/21 at 1849, Until Discontinu ed, Routine, Anxiety hydralAZINE 2021- No 10mg 10 mg, Uni vers (APRESOLINE 07-25 Slow IV ity of ) injection 23:15: 22:31 Push, [place] 10 mg 00 :00 ONCE, 1 Medical dose, On Branch [facility] 07/25/21 at 1815, STAT
In dication: Hypertensi ve Emergency HYDROmorpho 2021- No 1mg 1 mg, Slow Univers ne 07-25 IV Push, ity of (DILAUDID) 17:59: 17:58 Q4HPRN, [place] injection 1 31 :31 Starting Medi brandy mg on [facility] Branch 07/25/21 at 1259, Until Lil[place] 07/27/21 at 1258, Routine, Pain (scale 7-10)
U se approved by (Faculty): ADC PROVIDER docusate Yes 100mg 100 mg, Unive rs (COLACE) 07-25 Oral, BID, ity o f capsule 100 16:30: First dose [place] mg 00 on [facility] Medical 07/25/21 at Branch 1130, Until Discontinu ed, Routine sennosides- 2021- No 1{tbl} 1 tablet, [facility] docusate 07-25 Oral, ity of sodium 16:30: 21:16 DAILY, [place] (SENOKOT-S) 00 :00 First dose Me dical 8.6-50 mg on [place] per tablet 07/25/21 at 1 tablet 1130, Until Discontinu ed, Routine hydralAZINE 0 2021- No 10mg 10 mg, Uni [...] First dose [place] mg 00 on [facility] Medical 07/24/21 at Branch 2100, Until Discontinu ed, Routine morpHINE 2021- No 4mg 4 mg, Slow Un you injection 07-25 IV Push, ity of mg 02:00: 17:59 Q3HPRN, [place] 00 :47 Starting Medical on [facility] Branch 07/24/21 at 2100, Until Sat07/25/21 at 1259, Routine, Pain (scale 7-10) proMETHazin Yes 12.5mg 12.5 mg, Univers e 07-24 IV ity of (PHENERGAN) 23:52: Piggyback, [place] 12.5 mg in 45 Q4HPRN, Medica l NaCl 0.9% Starting Branch (NS) 50 mL on [facility] IV 07/24/21 at piggyback 1852, Until Discontinu ed, Routine, Nausea and Vomiting (N/V) morpHINE 0 2021- No 4mg 4 mg, Slow Un you injection 07-2411 IV Push, ity of mg 19:45: 23:44 Q3HPRN, [place] 00 :00 Starting Medical on [facility] Branch 07/24/21 at 1445, Until Sat07/24/21 at 1844, Routine, Pain (scale 7-10) SERTraline 0 Yes 25mg 25 mg, Unive rs (ZOLOFT) 4-11 Oral, ity of tablet 25 14:00: DAILY, [place] mg 00 First dose Medical on [facility] 07/24/21 at 0900, Until Discontinu ed, Routine losartan Yes 100mg 100 mg, Unive rs (COZAAR) 11 Oral, ity of tablet 100 14:00: DAILY, [place] mg 00 First dose Medical on [facility] 07/24/21 at 0900, Until Discontinu ed, Routine fenofibrate Yes 134mg 134 mg, Un you micronized 07-24 Oral, ity of (LOFIBRA) 14:00: DAILY, [place] capsule 134 00 First dose Me dical mg on [facility] 07/24/21 at 0900, Until Discontinu ed enoxaparin Yes 30mg 30 mg, Unive rs (LOVENOX) 07-24 Subcutaneo ity of injection 14:00: us, DAILY, [place] 30 mg 00 First dose Medical on [facility] 07/24/21 at 0900, Until Discontinu ed, Routine busPIRone Yes 10mg 10 mg, Univer s (BUSPAR) 07-24 Oral, BID, ity o f tablet 10 13:00: First dose [place] mg 00 on [facility] 07/24/21 at Branch 0800, Until Discontinu ed, Routine gabapentin Yes 300mg 300 mg, Uni vers (NEURONTIN) 07-24 Oral, BID, it y of capsule 300 13:00: First dose [place] mg 00 on [facility] 07/24/21 at Branch 0800, Until Discontinu ed, Routine lactated 2021- No 1000mL at 150 Univ ers ringers IV 07-24- mL/hr, ity of infusion 13:00: 15:03 1,000 mL, [place] as 1,000 mL 00 :17 IV Medical Infusion, Branch CONTINUOUS , Starting on Sat07/24/21 at 0800, Until Sat07/26/21 at 1003, Routine magnesium 2021-2021- No 2g 2 g, IV Univ ers sulfate in 07-24 Piggyback, it y of water 2 12:45: 15:00 Administer [place] as gram/50 mL 00 :00 over 60 Medica l (4 %) Minutes, Branch infusion 2 ONCE, 1 g dose, On Sat07/24/21 at 0745, Routine ondansetron Yes 4mg 4 mg, Slow Univers (ZOFRAN 07-24 IV Push, ity of (PF)) 04:26: Q6HPRN, [place] injection 4 35 Starting Medi brandy mg on [facility] 07/23/21 at 2326, Until Discontinu ed, [place], Nausea and Vomiting (N/V) FENTanyl PF No 75ug 75 mcg, Un you (SUBLIMAZE 07-24 Slow IV ity o f (PF)) 00:15: 23:11 Push, [place] injection 00 :00 ONCE, 1 Medical 75 mcg dose, On Branch [place] 07/23/21 at 1915, STAT iopamidol 2021- No [id number] 100mL 100 mL, Univers (ISOVUE 07-24 Intravenou ity o f 370-500 mL) 00:00: 00:00 s, ONCE, 1 [place] injection 00 :00 dose, On Medica l 100 mL [facility] 07/23/21 at 1900, Routine morpHINE 2021- No 4mg 4 mg, Slow Un you injection 4 07-23 IV Push, ity of mg 23:57: 19:32 Q4HPRN, [place] 08 :42 Starting Medical on [facility] 07/23/21 at 1857, Until 07/24/21 at 1432, Routine, Pain (scale 7-10) HYDROcodone 2021- No 1{tbl} 1 tablet, Univers -acetaminop 07-23 Oral, ity of hen (NORCO 23:57: 23:56 Q6HPRN, [place] as 5) 5-325 mg 06 :06 Starting Medi brandy tablet 1 on [facility] tablet 07/23/21 at 1857, Until 07/25/21 at 1856, Routine, Pain (scale 4-6) acetaminoph 2021- Yes 650mg 650 mg, Un you en 10 Oral, ity of (TYLENOL) 23:57: Q6HPRN, [place] tablet 650 04 Starting Medic al mg on [facility] 07/23/21 at 1857, Until Discontinu ed, Routine, Pain (scale 1-3) haloperidol 2021-2021- No 2.5mg 2.5 mg, U nivers lactate 07-23 Intravenou ity o f (HALDOL) 23:30: 22:31 s, ONCE, 1 [place] injection 00 :00 dose, On Medica l 2.5 mg [facility] 07/23/21 at 1830, STAT ondansetron 2021- No 4mg 4 mg, Slow Univers (ZOFRAN 07-23-10 IV Push, ity of (PF)) 22:00: 21:22 ONCE, 1 [place] injection 4 00 :00 dose, On Medi brandy mg [facility] 07/23/21 at 1700, [place] FENTanyl PF 2021- No 75ug 75 mcg, Un you (SUBLIMAZE 07-23- Slow IV ity o f (PF)) 22:00: 21:24 Push, [place] injection 00 :00 ONCE, 1 Medical 75 mcg dose, On [facility] 07/23/21 at 1700, Routine NaCl 0.9% 2021- No 1000mL at 999 Uni vers (NS) bolus 07-23- mL/hr, ity of infusion 22:00: 23:41 1,000 mL, [place] as 1,000 mL 00 :00 IV Medical Infusion, Branch ONCE, 1 dose, On [place] 07/23/21 at 1700, [place] water for Yes [...] Until Sat07/04/21 at 1527, Routine, Intra-op lactated 2021-0 202- No 1000mL at 42 [facility] rs ringers IV 07-04-22 mL/hr, ity of infusion 16:15: 16:04 1,000 mL, [place] as 1,000 mL 00 :00 IV Medical Infusion, Branch ONCE, 1 dose, On Sat07/04/21 at 1115, Routine, DSU Pre-op lactated 2021-0 202- No 1000mL at 42 [facility] rs ringers IV 07-04-22 mL/hr, ity of infusion 16:15: 16:04 1,000 mL, [place] as 1,000 mL 00 :00 IV Medical Infusion, Branch ONCE, 1 dose, On Sat07/04/21 at 1115, Routine, DSU Pre-op traZODone 2021-0 Yes 100mg Take 100 Uni vers 100 mg 3-22 mg by ity of tablet 13:27: mouth at [place] [address] bedtime. Medical Branch losartan 2021-0 Yes 100mg Take 100 Univ ers 100 mg 3-22 mg by ity of tablet 13:27: mouth [place] [address] daily. Medical Branch gabapentin 2021-0 Yes 300mg Take 300 Un you 300 mg 3-22 mg by ity of capsule 13:27: mouth 2 [place] [address] (two) Medical times Branch daily. proMETHazin 2021-0 Yes 25mg Take 25 mg Univers e 25 mg 3-22 by mouth ity of tablet 13:27: every 12 [place] [address] (twelve) Medical hours as Branch needed. busPIRone 2-0 Yes 15mg Take 15 mg Un you 15 mg 3-22 by mouth 3 ity of tablet 13:27: (three) [place] [address] times Medical daily. For Branch anxiety QUEtiapine [...] No 15mL 15 mL, Uni vers enhydrAMINE 2-20 -20 Oral, ity of :lidocaine 02:00: 01:01 ONCE, 1 [place] 2 % viscous 00 :00 dose, On Medi brandy 1:1:1 Sat Branch ([facility] 06/03/21 at [facility]) 1999, [place] oral suspension 15 mL iopamidol 2021- No [id number] 100mL 100 mL, Univers (ISOVUE 06-04 Intravenou [...] Branch 06/03/21 at 1530, Routine proMETHazin Yes [id number] 25mg Insert 1 Univers e 25 mg 2-19 Suppositor ity of suppository 00:00: y into [place] 00 rectum Medical every 4 Branch (four) hours as needed for Nausea and Vomiting (N/V), N/V unresponsi ve to Ondansetro n or N/V unresponsi ve to oral antiemetic s. proMETHazin Yes [id number] 25mg Insert 1 Univers e 25 mg 2-19 Suppositor ity of suppository 00:00: y into [place] 00 rectum Medical every 4 Branch (four) hours as needed for Nausea and Vomiting (N/V), N/V unresponsi ve to Ondansetro n or N/V unresponsi ve to oral antiemetic s. proMETHazin Yes [id number] 25mg Insert 1 Univers e 25 mg 2-19 Suppositor ity of suppository 00:00: y into rectum Medical every 4 Branch (four) hours as needed for Nausea and Vomiting (N/V), N/V unresponsi ve to Ondansetro n or N/V unresponsi ve to oral antiemetic s. proMETHazin Yes [id number] 25mg Insert 1 Univers e 25 mg 2-19 Suppositor ity of suppository 00:00: y into rectum Medical every 4 Branch (four) hours as needed for Nausea and Vomiting (N/V), N/V unresponsi ve to Ondansetro n or N/V unresponsi ve to oral antiemetic s. proMETHazin Yes [id number] 25mg Insert 1 Univers e 25 mg 2-19 Suppositor ity of suppository 00:00: y into rectum Medical every 4 Branch (four) hours as needed for Nausea and Vomiting (N/V), N/V unresponsi ve to Ondansetro n or N/V unresponsi ve to oral antiemetic s. proMETHazin Yes [id number] 25mg Insert 1 Univers e 25 mg 2-19 Suppositor ity of suppository 00:00: y into rectum Medical every 4 Branch (four) hours as needed for Nausea and Vomiting (N/V), N/V unresponsi ve to Ondansetro n or N/V unresponsi ve to oral antiemetic s. proMETHazin Yes [id number] 25mg Insert 1 Univers e 25 mg 2-19 Suppositor ity of suppository 00:00: y into rectum Medical every 4 Branch (four) hours as needed for Nausea and Vomiting (N/V), N/V unresponsi ve to Ondansetro n or N/V unresponsi ve to oral antiemetic s. proMETHazin 2021- No [id number] 25mg Insert 1 Univers e 25 mg 2-19 05-27 Suppositor ity o f suppository 00:00: 00:00 y into [place] as 00 :00 rectum Medical every 4 Branch (four) hours as needed for Nausea and Vomiting (N/V), N/V unresponsi ve to Ondansetro n or N/V unresponsi ve to oral antiemetic s. morpHINE No 4mg 4 mg, Slow Un you injection 4 05-22 IV Push, ity of mg 07:30: 06:35 ONCE, 1 [place] 00 :00 dose, On Medical 05/22/21 Branch at 0130, STAT ondansetron No 4mg 4 mg, Slow Univers (ZOFRAN 05-22 IV Push, ity of (PF)) 07:30: 06:35 ONCE, 1 [place] injection 4 00 :00 dose, On Medi brandy mg [facility] 05/22/21 Branch at 0130, [place] iohexol No [id number] 100mL 100 mL, Univers (OMNIPAQUE 05-22 Intravenou it y of 350 06:15: 06:04 s, ONCE, 1 [place] BULK-100 00 :00 dose, On Medical mL) [facility] 05/22/21 Branch injection at 0015, 100 mL Routine traZODone Yes 100mg Take 100 Uni vers 100 mg 2-06 mg by ity of tablet 23:27: mouth at [place] [address] bedtime. Medical Branch traZODone Yes 100mg Take 100 Uni vers 100 mg 2-06 mg by ity of tablet 23:27: mouth at [place] 53 bedtime. Medical Branch gabapentin Yes 300mg Take 300 Un you 300 mg 2-06 mg by ity of capsule 23:27: mouth 2 [place] 26 (two) Medical times Branch daily. gabapentin 0 Yes 300mg Take 300 Un you 300 mg 2-06 mg by ity of capsule 23:27: mouth 2 [place] 26 (two) Medical times Branch daily. erythromyci 2021- No erythromyc Univers n 5 mg/gram 05-21-06 in 5 ity of (0.5 %) 23:26: 00:00 mg/gram [place] ophthalmic 39 :00 (0.5 %) Medica l ointment eye Branch ointment diazePAM 2 2021- No 2mg Take 2 mg U nivers mg tablet 2-06 02-06 by mouth. ity of 23:26: 00:00 [place] 15 :00 Medical Branch losartan 2-0 Yes 100mg Take 100 Univ ers 100 mg 2-03 mg by ity of tablet 09:16: mouth [place] 01 daily. Medical Branch gabapentin 2-0 Yes 300mg [...] 01 daily. Medical Branch montelukast 2021- No [id number] 10mg Take 1 Univers (SINGULAIR) 2-06 tablet by it y of 10 mg 00:00: 05:59 mouth [place] tablet 00 :00 daily for Medical 30 days. Branch montelukast 2021- No [id number] 10mg Take 1 Univers (SINGULAIR) 2-06 tablet by it y of 10 mg 00:00: 05:59 mouth [place] tablet 00 :00 daily for Medical 30 days. Branch montelukast 2021- No [id number] 10mg Take 1 Univers (SINGULAIR) 2-06 tablet by it y of 10 mg 00:00: 05:59 mouth [place] tablet 00 :00 daily for Medical 30 days. Branch benzonatate 2021- No [id number] 200mg Take 2 Univers (TESSALON 2-06 14-14 capsules ity o f PERLES) 100 00:00: 05:59 by mouth [place] mg capsule 00 :00 every 8 Medica l (eight) Branch hours for 10 days. benzonatate 2021- No [id number] 200mg Take 2 Univers (TESSALON 2-06 14-14 capsules ity o f PERLES) 100 00:00: 05:59 by mouth [place] mg capsule 00 :00 every 8 Medica l (eight) Branch hours for 10 days. benzonatate 2021- No [id number] 200mg Take 2 Univers (TESSALON 2-06 14-14 capsules ity o f PERLES) 100 00:00: 05:59 by mouth [place] mg capsule 00 :00 every 8 Medica l (eight) Branch hours for 10 days. benzonatate 2021- No [id number] 200mg Take 2 Univers (TESSALON 2-03 02-06 capsules ity o f PERLES) 100 00:00: 00:00 by mouth [place] mg capsule 00 :00 every 8 Medica l (eight) Branch hours for 10 days. montelukast 2021- No [id number] 10mg Take 1 Univers (SINGULAIR) 05-18-06 tablet by it y of 10 mg 00:00: 00:00 mouth [place] tablet 00 :00 daily for Medical 30 days. Branch traZODone Yes 100mg Take 100 Uni vers 100 mg 1-03 mg by ity of tablet 10:57: mouth at [place] [address] bedtime. Medical Branch losartan Yes 100mg Take 100 Univ ers 100 mg 1-03 mg by ity of tablet 10:57: mouth [place] [address] daily. Medical Branch gabapentin Yes 300mg Take 300 Un you 300 mg 1-03 mg by ity of capsule 10:57: mouth 2 [place] 34 (two) Medical times Branch daily. diazePAM 2 Yes 2mg Take 2 mg Un you mg tablet 03 by mouth. ity o f 10:57: [place] 34 Medical Branch erythromyci Yes erythromyc Univers n 5 mg/gram 1-03 in 5 ity of (0.5 %) 10:57: mg/gram [place] ophthalmic 34 (0.5 %) Medica l ointment eye Branch ointment traZODone Yes 100mg Take 100 Uni vers 100 mg 1-03 mg by ity of tablet 10:57: mouth at [place] [address] bedtime. Medical Branch traZODone Yes 100mg Take 100 Uni vers 100 mg 1-03 mg by ity of tablet 10:57: mouth at [place] [address] bedtime. Medical Branch traZODone Yes 100mg Take 100 Uni vers 100 mg 1-03 mg by ity of tablet 10:57: mouth at [place] [address] bedtime. Medical Branch maalox:diph 15mL 15 mL, Uni vers enhydrAMINE 04-15 [...] 04/15/21 at 1445, [place] iopamidol 2021- No [id number] 120mL 120 mL, Univers (ISOVUE 04-15 Intravenou ity o f 370-500 mL) 20:13: 20:14 s, ONCE, 1 [place] injection 00 :00 dose, On Medica l 120 mL 04/15/21 Branch at 1430, Routine famotidine 2021- No [id number] 40mg Take 2 Univers (PEPCID) 20 04-15 tablets by i ty of mg tablet 00:00: 05:59 mouth 2 [place] 00 :00 (two) Medical times Branch daily for 15 days. proMETHazin 2021- No [id number] 25mg Take 1 Univers e 25 mg 04-15 tablet by ity of tablet 00:00: 05:59 mouth [place] 00 :00 every 6 Medical (six) Branch hours for 7 days. FENTanyl PF 2020-04- No 50ug 50 mcg, Un you (SUBLIMAZE 2-12 12-12 Slow IV ity o f (PF)) 03:45: 02:50 Push, [place] injection 00 :00 ONCE, 1 Medical 50 mcg dose, On Branch 12/11/21 at 2145, STAT hydralAZINE 2020-04- No 10mg 10 mg, Uni vers (APRESOLINE 05-27 Slow IV ity of ) injection 03:30: 02:51 Push, [place] 10 mg 00 :00 ONCE, 1 Medical dose, On Branch 03/25/21 at 2130, [place]
In dication: Hypertensi ve Emergency dicyclomine 2020-04 Yes [id number] 20mg 20 mg, Univers (BENTYL) 05-27 Intramuscu ity o f injection 02:00: lar, QID, [place] as 20 mg 00 First dose Medical on Sat Branch 03/25/21 at 2000, Until Discontinu ed, Routine iopamidol 2020-04- No [id number] 120mL 120 mL, Univers (ISOVUE 05-27 Intravenou ity o f 370-500 mL) 01:58: 01:58 s, ONCE, 1 [place] injection 00 :00 dose, On Medica l 120 mL Sat Branch 03/25/21 at 2015, Routine NaCl 0.9% 2020-04- No [id number] 1000mL at 999 Univers (NS) bolus 05-27 mL/hr, ity of infusion 01:30: 03:00 1,000 mL, [place] as 1,000 mL 00 :00 IV Medical Infusion, Branch ONCE, 1 dose, On 03/25/21 at 1930, [place] ondansetron 2020-04- No [id number] 4mg 4 mg, Slow Univers (ZOFRAN 05-27 IV Push, ity of (PF)) 01:30: 01:48 ONCE, 1 [place] injection 4 00 :00 dose, On Medi brandy mg Sat Branch 03/25/21 at 1930, [place] famotidine 2020-04- No [id number] 20mg 20 mg, Univers (PEPCID 05-27 Slow IV ity of (PF)) 01:30: 01:48 Push, [place] injection 00 :00 ONCE, 1 Medical 20 mg dose, On Branch 03/25/21 at 1930, [place] ketorolac 2020-04- No [id number] 30mg 30 mg, U nivers (TORADOL) 05-27 Slow IV ity of injection 01:30: 01:49 Push, [place] 30 mg 00 :00 ONCE, 1 Medical dose, On Branch 03/25/21 at 1930, [place] FENTanyl PF 2020-04- No [id number] 75ug 75 mcg, Univers (SUBLIMAZE 05-27 Slow [...] 1 Medical 25 mcg dose, On Branch [facility] 03/20/21 at 2000, STAT diphenhydrA 2020-04 No 12.5mg 12.5 mg, Univers MINE 05-22 Slow IV ity of (BENADRYL) 02:00: 01:13 Push, [place] injection 00 :00 ONCE, 1 Medical 12.5 mg dose, On Branch [facility] 03/20/21 at 1999, STAT metoclopram 2020-04 No 10mg 10 mg, Uni vers selena HCl 05-22 Slow IV ity of (REGLAN) 02:00: 01:13 Push, [place] injection 00 :00 ONCE, 1 Medical 10 mg dose, On Branch [facility] 03/20/21 at 1999, [place] FENTanyl PF 2020-04 No 75ug 75 mcg, Un you (SUBLIMAZE 05-21 Slow IV ity o f (PF)) 23:30: 22:45 Push, [place] injection 00 :00 ONCE, 1 Medical 75 mcg dose, On Branch [facility] 03/20/21 at 1730, Routine ketorolac 2020-04- No 30mg 30 mg, Unive rs (TORADOL) 05-21 Slow IV ity of injection 23:30: 22:44 Push, [place] 30 mg 00 :00 ONCE, 1 Medical dose, On Branch [facility] 03/20/21 at 1730, Routine
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 dicyclomine 2020-04 Yes [id number] 20mg Take 1 Univers 20 mg 2-06 tablet by ity of tablet 00:00: mouth 4 [place] 00 (four) Medical times Branch daily. metoclopram 2020-04 Yes [id number] 10mg Take 1 Univers selena HCl 10 2-06 tablet by ity of mg tablet 00:00: mouth [place] 00 every 6 Medical (six) Branch hours as needed for Nausea and Vomiting (N/V). dicyclomine 2020-04 Yes [id number] 20mg Take 1 Univers 20 mg 2-06 tablet by ity of tablet 00:00: mouth 4 00 (four) Medical times Branch daily. metoclopram 2020-04 Yes [id number] 10mg Take 1 Univers selena HCl 10 2-06 tablet by ity of mg tablet 00:00: mouth [place] 00 every 6 Medical (six) Branch hours as needed for Nausea and Vomiting (N/V). dicyclomine 2020-04 Yes [id number] 20mg Take 1 Univers 20 mg 2-06 tablet by ity of tablet 00:00: mouth 4 00 (four) Medical times Branch daily. metoclopram 2020-04 Yes [id number] 10mg Take 1 Univers selena HCl 10 2-06 tablet by ity of mg tablet 00:00: mouth [place] 00 every 6 Medical (six) Branch hours as needed for Nausea and Vomiting (N/V). dicyclomine 2020-04 Yes [id number] 20mg Take 1 [facility] 20 mg 2-06 tablet by ity of tablet 00:00: mouth (four) Medical times Branch daily. metoclopram 2020-04 Yes [id number] 10mg Take 1 [facility] selena HCl 10 2-06 tablet by ity of mg tablet 00:00: mouth [place] 00 every 6 Medical (six) Branch hours as needed for Nausea and Vomiting (N/V). dicyclomine 2020-04 Yes [id number] 20mg Take 1 [facility] 20 mg 2-06 tablet by ity of tablet 00:00: mouth (four) Medical times Branch daily. metoclopram 2020-04 Yes [id number] 10mg Take 1 [facility] selena HCl 10 2-06 tablet by ity of mg tablet 00:00: mouth [place] 00 every 6 Medical (six) Branch hours as needed for Nausea and Vomiting (N/V). dicyclomine 2020-04 Yes [id number] 20mg Take 1 [facility] 20 mg 2-06 tablet by ity of tablet 00:00: mouth 4 00 (four) Medical times Branch daily. metoclopram 2020-04 Yes [id number] 10mg Take 1 [facility] selena HCl 10 2-06 tablet by ity of mg tablet 00:00: mouth [place] 00 every 6 Medical (six) Branch hours as needed for Nausea and Vomiting (N/V). dicyclomine 2020-04 Yes [id number] 20mg Take 1 [facility] 20 mg 2-06 tablet by ity of tablet 00:00: mouth 4 [place] 00 (four) Medical times Branch daily. metoclopram 2020-04 Yes [id number] 10mg Take 1 [facility] selena HCl 10 2-06 tablet by ity of mg tablet 00:00: mouth [place] 00 every 6 Medical (six) Branch hours as needed for Nausea and Vomiting (N/V). dicyclomine 2020-04 Yes [id number] 20mg Take 1 [facility] 20 mg 2-06 tablet by ity of tablet 00:00: mouth 4 [place] 00 (four) Medical times Branch daily. metoclopram 2020-04 Yes [id number] 10mg Take 1 [facility] selena HCl 10 2-06 tablet by ity of mg tablet 00:00: mouth [place] 00 every 6 Medical (six) Branch hours as needed for Nausea and Vomiting (N/V). dicyclomine 2020-04 Yes [id number] 20mg Take 1 [facility] 20 mg 2-06 tablet by ity of tablet 00:00: mouth [address] [place] [address] (four) Medical times Branch daily. metoclopram 2020-04- No [id number] 10mg Take 1 [facility] selena HCl 10 2-06 02-06 tablet by ity of mg tablet 00:00: 00:00 mouth [place] 00 :00 every 6 Medical (six) Branch hours as needed for Nausea and Vomiting (N/V). dicyclomine 2020-04- No [id number] 20mg Take 1 [facility] 20 mg 2-06 02-06 tablet by ity of tablet 00:00: 00:[address] [place] [address] 00 :00 (four) Medical times Branch daily. famotidine 2020-04- No [id number] 20mg Take 1 [facility] 20 mg 2-06 12-17 tablet by ity of tablet 00:00: 05:59 mouth at [place] 00 :00 bedtime Medical for 10 Branch days. famotidine 2020-04- No [id number] 20mg Take 1 [facility] 20 mg 2-06 12-17 tablet by ity of tablet 00:00: 05:59 mouth at [place] 00 :00 bedtime Medical for 10 Branch days. famotidine 2020-04- No [id number] 20mg Take 1 [facility] 20 mg 05-21 1217 tablet by ity of tablet 00:00: 05:59 mouth at [place] 00 :00 bedtime Medical for 10 Branch days. ketorolac 2020-04 No 30mg 30 mg, Unive rs (TORADOL) 04-15 Slow IV ity of injection 02:15: 01:11 Push, [place] 30 mg 00 :00 ONCE, 1 Medical dose, On [facility] 02/12/21 at 2115, Routine
juice bar team member approving Restricted medication : GABRIELE GRAYSON proMETHazin 2020-04- No 25mg 25 mg, IV Univers e 04-15 Piggyback, ity of (PHENERGAN) 02:15: 01:12 ONCE, 1 [place] 25 mg in 00 :00 dose, On Medical NaCl 0.9% [place] Branch (NS) 50 mL 02/12/21 piggyback at 2115, 50 mL iopamidol 2020-04- No [id number] 120mL 120 mL, Univers (ISOVUE 0-12 02- Intravenou ity o f 370-500 mL) 23:30: 22:13 s, ONCE, 1 [place] injection 00 :00 dose, On Medica l 120 mL [facility] 02/12/21 at 1830, Routine morpHINE 2020-04- No 4mg 4 mg, Slow Un you injection 4 0-31 IV Push, ity of mg 23:15: 22:23 ONCE, 1 [place] 00 :00 dose, On [facility] 02/12/21 at 1815, STAT famotidine 2020-04 No 20mg 20 mg, Univ ers (PEPCID 0-12 02-31 Slow IV ity of (PF)) 21:30: 20:28 Push, [place] injection 00 :00 ONCE, 1 Medical 20 mg dose, On [facility] 02/12/21 at 1630, [place] NaCl 0.9% 2020-04- No 1000mL at 999 Uni vers (NS) bolus 0-31 10-31 mL/hr, ity of infusion 21:30: 21:30 1,000 mL, [place] 1,000 mL 00 :00 IV Medical Infusion, Branch ONCE, 1 dose, On [place] 02/12/21 at 1630, [place] ondansetron 2020-04 No 8mg 8 mg, Slow [facility] (ZOFRAN 0-02-12 IV Push, ity of (PF)) 21:30: 20:23 ONCE, 1 [place] injection 8 00 :00 dose, On Medi brandy mg [place] [facility] 02/12/21 at 1630, [place]IS ketorolac 2020-04- No 30mg 30 mg, Unive rs (TORADOL) 0-02-12 Slow IV ity of injection 21:30: 20:23 Push, [place] 30 mg 00 :00 ONCE, 1 Medical dose, On Branch [place] 02/12/21 at 1630, LOUIS
Fa culty member approving Restricted medication : ROSALINDA FISHER morpHINE 2020-04 No 4mg 4 mg, Slow Un you injection 4 0-02-12 IV Push, ity of mg 21:30: 20:23 ONCE, 1 [place] 00 :00 dose, On Medical [place] [facility] 02/12/21 at 1630, STAT ondansetron 2020-04 Yes [id number] 8mg Take 1 [facility] 8 mg tablet 0-31 tablet by ity of 00:00: mouth [place] 00 every 8 Medical (eight) Branch hours as needed for Nausea and Vomiting (N/V). ondansetron 2020-04- No [id number] 8mg Take 1 [facility] 8 mg tablet 0-31 12-06 tablet by it y of 00:00: 00:00 mouth [place] 00 :00 every 8 Medical (eight) Branch hours as needed for Nausea and Vomiting (N/V). morpHINE 2020-04 No 4mg 4 mg, Slow Un you injection 4 0-01-18 IV Push, ity of mg 07:00: 05:56 ONCE, 1 [place] 00 :00 dose, On Medical [facility] Branch 01/18/21 at 0200, STAT famotidine 2020-04 No 20mg 20 mg, Univ ers (PEPCID 0-06 - Slow IV ity of (PF)) 06:00: 05:08 Push, [place] injection 00 :00 ONCE, 1 Medical 20 mg dose, On Branch [facility] 01/18/21 at 0100, Routine maalox:diph 2020-04 No 15mL 15 mL, Uni vers enhydrAMINE 0-06 10-06 Oral, ity of :lidocaine 06:00: 05:08 ONCE, 1 [place] 2 % viscous 00 :00 dose, On Medi brandy 1:1:1 Wed Branch ([facility] 01/18/21 at [facility]) 0100, oral Routine suspension 15 mL dicyclomine 2020-04 No 20mg 20 mg, Uni vers (BENTYL) 0-06 - Oral, ity of tablet 20 06:00: 05:08 ONCE, 1 [place] mg 00 :00 dose, On Medical [place] Branch 01/18/21 at 0100, Routine iopamidol 2020-04 No [id number] 120mL 120 mL, Univers (ISOVUE 0- 10-06 Intravenou ity o f 370-500 mL) 04:45: 03:33 s, ONCE, 1 [place] injection 00 :00 dose, On Medica l 120 mL [facility] Branch 01/17/21 at 2345, Routine morpHINE 2020-04 No 4mg 4 mg, Slow Un you injection 4 0-06 10-06 IV Push, ity of mg 03:45: 02:58 ONCE, 1 [place] 00 :00 dose, On Medical [facility] Branch 01/17/21 at 2245, STAT ondansetron 2020-04 No 4mg 4 mg, Slow Univers (ZOFRAN 0-06 10-06 IV Push, ity of (PF)) 03:45: 02:59 ONCE, 1 [place] injection 4 00 :00 dose, On [facility] brandy mg [facility] Branch 01/17/21 at 2245, L[place]IS NaCl 0.9% 2020-04 No 1000mL at 999 Uni vers (NS) bolus 0-06 10-06 mL/hr, ity of infusion 03:45: 06:13 1,000 mL, [place] 1,000 mL 00 :00 IV Medical Piggyback, Branch ONCE, 1 dose, On [facility] 01/17/21 at 2245, STAT diazePAM 2 Yes 2mg Take 2 mg Un you mg tablet 9-25 by mouth. ity o f 11:25: [place] 57 [facility] Branch erythromyci Yes erythromyc Univers n 5 mg/gram 9-25 in 5 ity of (0.5 %) 11:25: mg/gram [place] ophthalmic 57 (0.5 %) Medica l ointment eye Branch ointment ondansetron Yes ondansetro Univers 4 mg tablet 9-25 n HCl 4 mg it y of 11:25: tablet [place] [address] Medical Branch diazePAM 2 Yes 2mg Take 2 mg Un you mg tablet 9-25 by mouth. ity o f 11:25: [place] 57 Medical Branch erythromyci Yes erythromyc Univers n 5 mg/gram 9-25 in 5 ity of (0.5 %) 11:25: mg/gram [place] ophthalmic 57 (0.5 %) Medica l ointment eye Branch ointment ondansetron Yes ondansetro Univers 4 mg tablet 9-25 n HCl 4 mg it y of 11:25: tablet [place] [address] Medical Branch diazePAM 2 Yes 2mg Take 2 mg Un you mg tablet 9-25 by mouth. ity o f 11:25: [place] [address] Medical Branch erythromyci Yes erythromyc Univers n 5 mg/gram 9-25 in 5 ity of (0.5 %) 11:25: mg/gram [place] ophthalmic 57 (0.5 %) Medica l ointment eye Branch ointment ondansetron Yes ondansetro Univers 4 mg tablet 9-25 n HCl 4 mg it y of 11:25: tablet [place] [address] Medical Branch diazePAM 2 Yes 2mg Take 2 mg Un you mg tablet 9-25 by mouth. ity o f 11:25: [place] [address] Medical Branch erythromyci Yes erythromyc Univers n 5 mg/gram 9-25 in 5 ity of (0.5 %) 11:25: mg/gram [place] ophthalmic 57 (0.5 %) Medica l ointment eye Branch ointment ondansetron Yes ondansetro Univers 4 mg tablet 9-25 n HCl 4 mg it y of 11:25: tablet [place] [address] Medical Branch diazePAM 2 Yes 2mg Take 2 mg Un you mg tablet 9-25 by mouth. ity o f 11:25: [place] [address] Medical Branch erythromyci Yes erythromyc Univers n 5 mg/gram 9-25 in 5 ity of (0.5 %) 11:25: mg/gram [place] ophthalmic 57 (0.5 %) Medica l ointment eye Branch ointment ondansetron Yes ondansetro Univers 4 mg tablet 9-25 n HCl 4 mg it y of 11:25: tablet [place] [address] Medical Branch diazePAM 2 Yes 2mg Take 2 mg Un you mg tablet 9-25 by mouth. ity o f 11:25: [place] [address] Medical Branch erythromyci Yes erythromyc Univers n 5 mg/gram 9-25 in 5 ity of (0.5 %) 11:25: mg/gram [place] ophthalmic 57 (0.5 %) Medica l ointment eye Branch ointment ondansetron Yes ondansetro Univers 4 mg tablet 9-25 n HCl 4 mg it y of 11:25: tablet [place] [address] Medical Branch diazePAM 2 Yes 2mg Take 2 mg Un you mg tablet 9-25 by mouth. ity o f 11:25: [place] [address] Medical Branch erythromyci Yes erythromyc Univers n 5 mg/gram 9-25 in 5 ity of (0.5 %) 11:25: mg/gram [place] ophthalmic 57 (0.5 %) Medica l ointment eye Branch ointment diazePAM 2 Yes 2mg Take 2 mg Un you mg tablet 9-25 by mouth. ity o f 11:25: [place] [address] Medical Branch erythromyci Yes erythromyc Univers n 5 mg/gram 9-25 in 5 ity of (0.5 %) 11:25: mg/gram [place] ophthalmic 57 (0.5 %) Medica l ointment eye Branch ointment diazePAM 2 Yes 2mg Take 2 mg Un you mg tablet 9-25 by mouth. ity o f 11:25: [place] [address] Medical Branch erythromyci Yes erythromyc Univers n 5 mg/gram 9-25 in 5 ity of (0.5 %) 11:25: mg/gram [place] ophthalmic 57 (0.5 %) Medica l ointment eye Branch ointment diazePAM 2 Yes 2mg Take 2 mg Un you mg tablet 9-25 by mouth. ity o f 11:25: [place] [address] Medical Branch erythromyci Yes erythromyc Univers n 5 mg/gram 9-25 in 5 ity of (0.5 %) 11:25: mg/gram [place] ophthalmic 57 (0.5 %) Medica l ointment eye Branch ointment diazePAM 2 Yes 2mg Take 2 mg Un you mg tablet 9-25 by mouth. ity o f 11:25: [place] [address] Medical Branch erythromyci Yes erythromyc Univers n 5 mg/gram 9-25 in 5 ity of (0.5 %) 11:25: mg/gram [place] ophthalmic 57 (0.5 %) Medica l ointment eye Branch ointment albuterol Yes [id number] 2{puff} Inhale 2 Univers 90 9-25 Puffs ity of mcg/actuati 00:00: every 6 [place] on inhaler 00 (six) Medical hours as Branch needed for Wheezing or Shortness of Breath. albuterol Yes [id number] 2{puff} Inhale 2 Univers 90 9-25 Puffs ity of mcg/actuati 00:00: every 6 [place] on inhaler 00 (six) Medical hours as Branch needed for Wheezing or Shortness of Breath. albuterol Yes [id number] 2{puff} Inhale 2 Univers 90 9-25 Puffs ity of mcg/actuati 00:00: every 6 [place] on inhaler 00 (six) Medical hours as Branch needed for Wheezing or Shortness of Breath. albuterol Yes [id number] 2{puff} Inhale 2 Univers 90 9-25 Puffs ity of mcg/actuati 00:00: every 6 [place] on inhaler 00 (six) Medical hours as Branch needed for Wheezing or Shortness of Breath. albuterol Yes [id number] 2{puff} Inhale 2 Univers 90 9-25 Puffs ity of mcg/actuati 00:00: every 6 [place] on inhaler 00 (six) Medical hours as Branch needed for Wheezing or Shortness of Breath. albuterol Yes [id number] 2{puff} Inhale 2 Univers 90 9-25 Puffs ity of mcg/actuati 00:00: every 6 [place] on inhaler 00 (six) Medical hours as Branch needed for Wheezing or Shortness of Breath. albuterol Yes [id number] 2{puff} Inhale 2 Univers 90 9-25 Puffs ity of mcg/actuati 00:00: every 6 [place] on inhaler 00 (six) Medical hours as Branch needed for Wheezing or Shortness of Breath. albuterol Yes [id number] 2{puff} Inhale 2 Univers 90 9-25 Puffs ity of mcg/actuati 00:00: every 6 [place] on inhaler 00 (six) Medical hours as Branch needed for Wheezing or Shortness of Breath. albuterol Yes [id number] 2{puff} Inhale 2 Univers 90 9-25 Puffs ity of mcg/actuati 00:00: every 6 [place] on inhaler 00 (six) Medical hours as Branch needed for Wheezing or Shortness of Breath. albuterol Yes [id number] 2{puff} Inhale 2 Univers 90 9-25 Puffs ity of mcg/actuati 00:00: every 6 [place] on inhaler 00 (six) Medical hours as Branch needed for Wheezing or Shortness of Breath. albuterol Yes [id number] 2{puff} Inhale 2 Univers 90 9-25 Puffs ity of mcg/actuati 00:00: every 6 [place] on inhaler 00 (six) Medical hours as Branch needed for Wheezing or Shortness of Breath. albuterol Yes [id number] 2{puff} Inhale 2 Univers 90 9-25 Puffs ity of mcg/actuati 00:00: every 6 [place] on inhaler 00 (six) Medical hours as Branch needed for Wheezing or Shortness of Breath. albuterol Yes [id number] 2{puff} Inhale 2 Univers 90 9-25 Puffs ity of mcg/actuati 00:00: every 6 [place] on inhaler 00 (six) Medical hours as Branch needed for Wheezing or Shortness of Breath. albuterol Yes [id number] 2{puff} Inhale 2 Univers 90 9-25 Puffs ity of mcg/actuati 00:00: every 6 [place] on inhaler 00 (six) Medical hours as Branch needed for Wheezing or Shortness of Breath. albuterol Yes [id number] 2{puff} Inhale 2 Univers 90 9-25 Puffs ity of mcg/actuati 00:00: every 6 [place] on inhaler 00 (six) Medical hours as Branch needed for Wheezing or Shortness of Breath. albuterol Yes [id number] 2{puff} Inhale 2 Univers 90 9-25 Puffs ity of mcg/actuati 00:00: every 6 [place] on inhaler 00 (six) Medical hours as Branch needed for Wheezing or Shortness of Breath. albuterol Yes [id number] 2{puff} Inhale 2 Univers 90 9-25 Puffs ity of mcg/actuati 00:00: every 6 [place] on inhaler 00 (six) Medical hours as Branch needed for Wheezing or Shortness of Breath. albuterol Yes [id number] 2{puff} Inhale 2 Univers 90 9-25 Puffs ity of mcg/actuati 00:00: every 6 [place] on inhaler 00 (six) Medical hours as Branch needed for Wheezing or Shortness of Breath. albuterol Yes [id number] 2{puff} Inhale 2 Univers 90 9-25 Puffs ity of mcg/actuati 00:00: every 6 [place] on inhaler 00 (six) Medical hours as Branch needed for Wheezing or Shortness of Breath. albuterol Yes [id number] 2{puff} Inhale 2 Univers 90 9-25 Puffs ity of mcg/actuati 00:00: every 6 [place] on inhaler 00 (six) Medical hours as Branch needed for Wheezing or Shortness of Breath. albuterol Yes [id number] 2{puff} Inhale 2 Univers 90 9-25 Puffs ity of mcg/actuati 00:00: every 6 [place] on inhaler 00 (six) Medical hours as Branch needed for Wheezing or Shortness of Breath. albuterol Yes [id number] 2{puff} Inhale 2 Univers 90 9-25 Puffs ity of mcg/actuati 00:00: every 6 [place] on inhaler 00 (six) Medical hours as Branch needed for Wheezing or Shortness of Breath. albuterol Yes [id number] 2{puff} Inhale 2 Univers 90 9-25 Puffs ity of mcg/actuati 00:00: every 6 [place] on inhaler 00 (six) Medical hours as Branch needed for Wheezing or Shortness of Breath. albuterol 2021- No [id number] 2{puff} Inhale 2 Univers 90 9-25 05-20 Puffs ity of mcg/actuati 00:00: 00:00 every 6 [place] on inhaler 00 :00 (six) Medical hours as Branch needed for Wheezing or Shortness of Breath. promethazin 2020- No [id number] 5mL Take 5 mL Univers e-dextromet 9-25 10-03 by mouth 4 i ty of horphan 00:00: 04:59 (four) [place] 6.25-15 00 :00 times Medical mg/5 mL daily as Branch syrup needed for Cough or Cold symptoms for up to 7 days. promethazin 2020- No [id number] 5mL Take 5 mL Univers e-dextromet 9-25 10-03 by mouth 4 i ty of horphan 00:00: 04:59 (four) [place] 6.25-15 00 :00 times Medical mg/5 mL daily as Branch syrup needed for Cough or Cold symptoms for up to 7 days. promethazin 2020- No [id number] 5mL Take 5 mL Univers e-dextromet 9-25 [...] 9-23 ity of 00:00: Medical Branch tiZANidine 1-0 Yes Univers 2 mg tablet 9-23 ity of 00:00: Medical Branch tiZANidine 2020-0 Yes Univers 2 mg tablet 9-23 ity of 00:00: Medical Branch tiZANidine 2020-0 Yes Univers 2 mg tablet 9- ity of 00:00: Medical Branch tiZANidine 2020-0 Yes Univers 2 mg tablet 9- ity of 00:00: Medical Branch tiZANidine 2020-0 Yes Univers 2 mg tablet 9- ity of 00:00: [place] Medical Branch tiZANidine 2020-0 Yes Univers 2 mg tablet 9- ity of 00:00: [place] Medical Branch tiZANidine 2020-0 Yes Univers 2 mg tablet 9- ity of 00:00: [place] Medical Branch tiZANidine 2020-0 Yes Univers 2 mg tablet 9- ity of 00:00: [place] Medical Branch tiZANidine 2020-0 Yes Univers 2 mg tablet 9- ity of 00:00: Medical Branch tiZANidine 2020-0 Yes Univers 2 mg tablet 9- ity of 00:00: [place] Medical Branch tiZANidine 2020-0 Yes Univers 2 mg tablet 9- ity of 00:00: [place] Medical Branch tiZANidine 2020-0 Yes Univers 2 mg tablet 9- ity of 00:00: Medical Branch tiZANidine 2020-0 Yes Univers 2 mg tablet 9- ity of 00:00: Medical Branch tiZANidine 2020-0 Yes Univers 2 mg tablet 9- ity of 00:00: [place] Medical Branch tiZANidine 2020-0 Yes Univers 2 mg tablet 9-23 ity of 00:00: [place] Medical Branch tiZANidine 2020-0 Yes Univers 2 mg tablet 9-23 ity of 00:00: [place] Medical Branch tiZANidine 2020-0 Yes Univers 2 mg tablet 9- ity of 00:00: [place] Medical Branch tiZANidine 2020-0 Yes Univers 2 mg tablet 9- ity of 00:00: [place] Medical Branch tiZANidine 2020-0 Yes Univers 2 mg tablet 9-23 ity of 00:00: [place] 00 Medical Branch tiZANidine 2021-0 Yes Univers 2 mg tablet 9-23 ity of 00:00: [place] Medical Branch tiZANidine 2021-0 Yes Univers 2 mg tablet 9-23 ity of 00:00: [place] 00 Medical Branch tiZANidine 2021-0 Yes Univers 2 mg tablet 9-23 ity of 00:00: [place] Medical Branch tiZANidine 2021-0 Yes 4mg Take 4 mg Un you 2 mg tablet 9-23 by mouth 2 it y of 00:00: (two) [place] 00 times Medical daily. Branch tiZANidine 2021-0 Yes 4mg Take 4 mg Un you 2 mg tablet 9-23 by mouth 2 it y of 00:00: (two) [place] 00 times Medical daily. Branch tiZANidine 2021-0 Yes 4mg Take 4 mg Un you 2 mg tablet 9-23 by mouth 2 it y of 00:00: (two) [place] times Medical daily. Branch tiZANidine 2021-0 Yes 4mg Take 4 mg Un you 2 mg tablet 9-23 by mouth 2 it y of 00:00: (two) [place] 00 times Medical daily. Branch tiZANidine 2021-0 Yes 4mg Take 4 mg Un you 2 mg tablet 9-23 by mouth 2 it y of 00:00: (two) [place] 00 times Medical daily. Branch tiZANidine 2021-0 Yes 4mg Take 4 mg Un you 2 mg tablet 9-23 by mouth 2 it y of 00:00: (two) [place] 00 times Medical daily. Branch tiZANidine 2021-0 Yes 4mg Take 4 mg Un you 2 mg tablet 9-23 by mouth 2 it y of 00:00: (two) [place] 00 times Medical daily. Branch tiZANidine 2021-0 Yes 4mg Take 4 mg Un you 2 mg tablet 9-23 by mouth 2 it y of 00:00: (two) [place] 00 times Medical daily. Branch tiZANidine 2021-0 Yes 4mg Take 4 mg Un you 2 mg tablet 9-23 by mouth 2 it y of 00:00: (two) [place] 00 times Medical daily. Branch tiZANidine 2021-0 [...] mg U nivers 2 mg tablet 01-05 10-24 by mouth 2 i ty of 00:00: 00:00 (two) [place] 00 :00 times Medical daily. Branch ketorolac No 30mg [...] On Branch 12/30/20 at 1800, Routine maalox:diph 2020-2020- No 15mL 15 mL, Uni vers enhydrAMINE 12-30 Oral, ity of :lidocaine 21:45: 20:37 ONCE, 1 [place] 2 % viscous 00 :00 dose, On Medi brandy 1:1:1 Fri Branch ([facility] 12/30/20 at [facility]) 1645, oral Routine suspension 15 mL [...] brandy 1:1:1 Fri Branch ([facility] 12/30/20 at [facility]) 1645, oral Routine suspension 15 mL famotidine 2020- No 20mg 20 mg, Univ ers (PEPCID 12-30 Slow IV ity of (PF)) 21:45: 20:37 Push, [place] injection 00 :00 ONCE, 1 Medical 20 mg dose, On Branch 12/30/20 at 1645, Routine iopamidol 2020- No [id number] 80mL 80 mL, Univers (ISOVUE 12-30 Intravenou ity o f 370-500 mL) 20:00: 18:48 s, ONCE, 1 [place] injection 00 :00 dose, On Medica l 80 mL Fri Branch 12/30/20 at 1500, Routine iopamidol 0 2020- No [id number] 80mL 80 mL, Univers (ISOVUE 12-30 Intravenou ity o f 370-500 mL) 20:00: 18:48 s, ONCE, 1 [place] injection 00 :00 dose, On Medica l 80 mL [facility] 12/30/20 at 1500, Routine morpHINE 2020-0 2020- No 4mg 4 mg, Slow Un you injection 4 12-30 IV Push, ity of mg 19:30: 18:35 ONCE, 1 [place] 00 :00 dose, On Medical [facility] 12/30/20 at 1430, STAT ondansetron 2020-0 2020- No 4mg 4 mg, Slow Univers (ZOFRAN 12-30 IV Push, ity of (PF)) 19:30: 18:35 ONCE, 1 [place] injection 4 00 :00 dose, On Medi brandy mg [facility] 12/30/20 at 1430, L[facility]IS NaCl 0.9% 2020- No 1000mL at 999 Uni vers (NS) bolus 12-30 mL/hr, ity of infusion 19:30: 20:38 1,000 mL, [place] 1,000 mL 00 :00 IV Medical Piggyback, Branch ONCE, 1 dose, On Sat12/30/20 at 1430, STAT morpHINE 2020-0 2020- No 4mg 4 mg, Slow Un you injection 4 12-30 IV Push, ity of mg 19:30: 18:35 ONCE, 1 [place] 00 :00 dose, On [facility] 12/30/20 at 1430, STAT ondansetron 0 2020- No 4mg 4 mg, Slow Univers (ZOFRAN 12-30 IV Push, ity of (PF)) 19:30: 18:35 ONCE, 1 [place] injection 4 00 :00 dose, On Medi brandy mg [facility] Branch 12/30/20 at 1430, [place] NaCl 0.9% 2020- No 1000mL at 999 Uni vers (NS) bolus 12-30 mL/hr, ity of infusion 19:30: 20:38 1,000 mL, [place] 1,000 mL 00 :00 IV Medical Piggyback, Branch ONCE, 1 dose, On Sat12/30/20 at 1430, STAT traZODone 2020-0 Yes 100mg Take 100 Uni vers 100 mg 9-17 mg by ity of tablet 10:15: mouth at [place] [address] bedtime. Medical Branch traZODone 2020-0 Yes 100mg Take 100 Uni vers 100 mg 9-17 mg by ity of tablet 10:15: mouth at [place] [address] bedtime. Medical Branch traZODone 2020-0 Yes 100mg Take 100 Uni vers 100 mg 9-17 mg by ity of tablet 10:15: mouth at [place] [address] bedtime. Medical Branch traZODone 2020-0 Yes 100mg Take 100 Uni vers 100 mg 9-17 mg by ity of tablet 10:15: mouth at [place] [address] bedtime. Medical Branch traZODone 2020-0 Yes 100mg Take 100 Uni vers 100 mg 9-17 mg by ity of tablet 10:15: mouth at [place] [address] bedtime. Medical Branch traZODone 2020-0 Yes 100mg Take 100 Uni vers 100 mg 9-17 mg by ity of tablet 10:15: mouth at [place] [address] bedtime. Medical Branch traZODone 2020-0 Yes 100mg Take 100 Uni vers 100 mg 9-17 mg by ity of tablet 10:15: mouth at [place] [address] bedtime. Medical Branch traZODone 2020-0 Yes 100mg Take 100 Uni vers 100 mg 9-17 mg by ity of tablet 10:15: mouth at [place] [address] bedtime. Medical Branch traZODone 2020-0 Yes 100mg Take 100 Uni vers 100 mg 9-17 mg by ity of tablet 10:15: mouth at [place] [address] bedtime. Medical Branch traZODone 2020-0 Yes 100mg Take 100 Uni vers 100 mg 9-17 mg by ity of tablet 10:15: mouth at [place] [address] bedtime. Medical Branch traZODone 2020-0 Yes 100mg Take 100 Uni vers 100 mg 9-17 mg by ity of tablet 10:15: mouth at [place] [address] bedtime. Medical Branch traZODone 1-0 Yes 100mg Take 100 Uni vers 100 mg 9-17 mg by ity of tablet 10:15: mouth at [place] [address] bedtime. Medical Branch traZODone 1-0 Yes 100mg Take 100 Uni vers 100 mg 9-17 mg by ity of tablet 10:15: mouth at [place] 06 bedtime. Medical Branch traZODone 2020-0 Yes 100mg Take 100 Uni vers 100 mg 9-17 mg by ity of tablet 10:15: mouth at [place] 06 bedtime. Medical Branch traZODone 2020-0 Yes 100mg Take 100 Uni vers 100 mg 9-17 mg by ity of tablet 10:15: mouth at [place] 06 bedtime. Medical Branch traZODone 2020-0 Yes 100mg Take 100 Uni vers 100 mg 9-17 mg by ity of tablet 10:15: mouth at [place] 06 bedtime. Medical Branch dicyclomine 2020-0 Yes [id number] 20mg Take 1 Univers 20 mg 9-17 tablet by ity of tablet 00:00: mouth [place] 00 every 6 Medical (six) Branch hours as needed for Abdominal pain. dicyclomine 2020-0 Yes [id number] 20mg Take 1 [facility] 20 mg 9-17 tablet by ity of tablet 00:00: mouth [place] 00 every 6 Medical (six) Branch hours as needed for Abdominal pain. dicyclomine 2020-0 Yes [id number] 20mg Take 1 [facility] 20 mg 9-17 tablet by ity of tablet 00:00: mouth [place] 00 every 6 Medical (six) Branch hours as needed for Abdominal pain. dicyclomine 2020-0 Yes [id number] 20mg Take 1 [facility] 20 mg 9-17 tablet by ity of tablet 00:00: mouth [place] 00 every 6 Medical (six) Branch hours as needed for Abdominal pain. dicyclomine 2020-0 Yes [id number] 20mg Take 1 [facility] 20 mg 9-17 tablet by ity of tablet 00:00: mouth [place] 00 every 6 Medical (six) Branch hours as needed for Abdominal pain. dicyclomine 2020-0 Yes [id number] 20mg Take 1 [facility] 20 mg 9-17 tablet by ity of tablet 00:00: mouth [place] 00 every 6 Medical (six) Branch hours as needed for Abdominal pain. dicyclomine 2020-0 Yes [id number] 20mg Take 1 [facility] 20 mg 9-17 tablet by ity of tablet 00:00: mouth [place] 00 every 6 Medical (six) Branch hours as needed for Abdominal pain. dicyclomine 2020-0 Yes [id number] 20mg Take 1 [facility] 20 mg 9-17 tablet by ity of tablet 00:00: mouth [place] 00 every 6 Medical (six) Branch hours as needed for Abdominal pain. dicyclomine 2020-0 Yes [id number] 20mg Take 1 [facility] 20 mg 9-17 tablet by ity of tablet 00:00: mouth [place] 00 every 6 Medical (six) Branch hours as needed for Abdominal pain. dicyclomine 2020-0 Yes [id number] 20mg Take 1 [facility] 20 mg 9-17 tablet by ity of tablet 00:00: mouth [place] 00 every 6 Medical (six) Branch hours as needed for Abdominal pain. dicyclomine 2020-0 Yes [id number] 20mg Take 1 [facility] 20 mg 9-17 tablet by ity of tablet 00:00: mouth [place] 00 every 6 Medical (six) Branch hours as needed for Abdominal pain. dicyclomine 2020-0 Yes [id number] 20mg Take 1 [facility] 20 mg 9-17 tablet by ity of tablet 00:00: mouth [place] 00 every 6 Medical (six) Branch hours as needed for Abdominal pain. dicyclomine 2020-0 Yes [id number] 20mg Take 1 [facility] 20 mg 9-17 tablet by ity of tablet 00:00: mouth [place] 00 every 6 Medical (six) Branch hours as needed for Abdominal pain. dicyclomine 2020-0 Yes [id number] 20mg Take 1 [facility] 20 mg 9-17 tablet by ity of tablet 00:00: mouth [place] 00 every 6 Medical (six) Branch hours as needed for Abdominal pain. dicyclomine 2020-0 Yes [id number] 20mg Take 1 [facility] 20 mg 9-17 tablet by ity of tablet 00:00: mouth [place] 00 every 6 Medical (six) Branch hours as needed for Abdominal pain. dicyclomine 2020-0 Yes [id number] 20mg Take 1 [facility] 20 mg 9-17 tablet by ity of tablet 00:00: mouth [place] 00 every 6 Medical (six) Branch hours as needed for Abdominal pain. dicyclomine 2020-0 Yes [id number] 20mg Take 1 [facility] 20 mg 9-17 tablet by ity of tablet 00:00: mouth [place] 00 every 6 Medical (six) Branch hours as needed for Abdominal pain. dicyclomine 2021-0 2022- No [id number] 20mg Take 1 [facility] 20 mg 9-17 02-06 tablet by ity of tablet 00:00: 00:00 mouth [place] 00 :00 every 6 Medical (six) Branch hours as needed for Abdominal pain. traZODone 2021-0 Yes 100mg Take 100 Uni [...] at [place] 50 bedtime. Medical Branch losartan 1-0 Yes 100mg Take 100 Univ ers 100 [...] gabapentin 2021-0 Yes 300mg Take 300 Un oyu 300 mg 9-03 mg by ity of capsule 10:23: mouth 2 [place] 50 (two) Medical times Branch daily. losartan 2021-0 Yes 100mg Take 100 Univ ers 100 mg 9-03 mg by ity of tablet 10:23: mouth [place] 50 daily. Medical Branch gabapentin 0 Yes 300mg Take 300 Un you 300 mg 9-03 mg by ity of capsule 10:23: mouth 2 [place] 50 (two) Medical times Branch daily. cephALEXin 0 2020- No [id number] 500mg Take 1 [facility] 500 mg 12-16 capsule by ity of capsule 00:00: 04:59 mouth 4 [place] 00 :00 (four) Medical times [place] daily for 7 days. cephALEXin 0 2020- No [id number] 500mg Take 1 [facility] 500 mg 12-16 capsule by ity of capsule 00:00: 04:59 mouth 4 [place] 00 :00 (four) Medical times [place] daily for 7 days. hydrOXYzine 0 Yes Univer s 25 mg 9- ity of tablet 00:00: [place] [facility] Branch SERTraline 2020-0 Yes Univers 25 mg 9- ity of tablet 00:00: [place] [facility] hydrOXYzine 2020-0 Yes Univer s 25 mg 9- ity of tablet 00:00: [place] [facility] Branch SERTraline 2020-0 Yes Univers 25 mg 9- ity of tablet 00:00: [address] hydrOXYzine 2020-0 Yes Univer s 25 mg 9- ity of tablet 00:00: [place] [facility] Branch SERTraline 2020-0 Yes Univers 25 mg 9- ity of tablet 00:00: [address] Branch hydrOXYzine 2020-0 Yes Univer s 25 mg 9- ity of tablet 00:00: [place] [facility] Branch SERTraline 2020-0 Yes Univers 25 mg 9-01 ity of tablet 00:00: [place] [facility] hydrOXYzine 2020-0 Yes Univer s 25 mg 9-01 ity of tablet 00:00: [address] SERTraline 2020-0 Yes Univers 25 mg 9-01 ity of tablet 00:00: [place] [facility] hydrOXYzine 2020-0 Yes Univer s 25 mg 9- ity of tablet 00:00: [address] SERTraline 2020-0 Yes Univers 25 mg 9-01 ity of tablet 00:00: [place] [facility] hydrOXYzine 2020-0 Yes Univer s 25 mg 9- ity of tablet 00:00: [place] [facility] Branch SERTraline 2020-0 Yes Univers 25 mg 9- ity of tablet 00:00: [place] [facility] hydrOXYzine 2020-0 Yes Univer s 25 mg 9- ity of tablet 00:00: [place] [facility] SERTraline 2020-0 Yes [facility] 25 mg 9- ity of tablet 00:00: [place] [facility] hydrOXYzine 2020-0 Yes Univer s 25 mg 9- ity of tablet 00:00: [place] [facility] SERTraline 2020-0 Yes Univers 25 mg 9- ity of tablet 00:00: [place] [facility] hydrOXYzine 2020-0 Yes Univer s 25 mg 9- ity of tablet 00:00: [place] [facility] SERTraline 2020-0 Yes Univers 25 mg 9- ity of tablet 00:00: [place] [facility] hydrOXYzine 2020-0 Yes Univer s 25 mg 9- ity of tablet 00:00: [place] [facility] SERTraline 2020-0 Yes [facility] 25 mg 9- ity of tablet 00:00: [place] [facility] hydrOXYzine 2020-0 Yes Univer s 25 mg 9- ity of tablet 00:00: [place] [facility] SERTraline 2020-0 Yes [facility] 25 mg 9- ity of tablet 00:00: [place] [facility] hydrOXYzine 2020-0 Yes Univer s 25 mg 9- ity of tablet 00:00: [place] [facility] SERTraline 2020-0 Yes Univers 25 mg 9- ity of tablet 00:00: [place] [facility] hydrOXYzine 2020-0 Yes Univer s 25 mg 9- ity of tablet 00:00: [place] [address] Medical Branch SERTraline 2020-0 Yes Univers 25 mg 9- ity of tablet 00:00: [place] [facility] hydrOXYzine 2020-0 Yes Univer s 25 mg 9- ity of tablet 00:00: [place] [facility] SERTraline 2020-0 Yes [facility] 25 mg 9- ity of tablet 00:00: [place] [facility] SERTraline 2020-0 Yes [facility] 25 mg 9- ity of tablet 00:00: Medical Branch SERTraline Yes [facility] 25 mg 12-14 ity of tablet 00:00: [facility] SERTraline Yes Univers 25 mg 12-14 ity of tablet 00:00: [facility] SERTraline Yes Univers 25 mg 12-14 ity of tablet 00:00: [facility] SERTraline Yes Univers 25 mg 12-14 ity of tablet 00:00: [facility] SERTraline Yes Univers 25 mg 12-14 ity of tablet 00:00: [place] [facility] SERTraline Yes Univers 25 mg 12-14 ity of tablet 00:00: [place] [facility] SERTraline Yes Univers 25 mg 12-14 ity of tablet 00:00: [place] [facility] SERTraline 2021- No Univer s 25 mg 12-14 05-20 ity of tablet 00:00: 00:00 [place] 00 :00 [facility] hydrOXYzine 2021- No Unive rs 25 mg 12-14 02-06 ity of tablet 00:00: 00:00 [place] 00 :00 [facility] morpHINE 2020- No 4mg 4 mg, Slow Un you injection 4 12-06 IV Push, ity of mg 00:00: 23:00 ONCE, 1 [place] 00 :00 dose, [facility] 12/05/20 at Branch 1900, STAT dicyclomine 2020- No 20mg 20 mg, Uni vers (BENTYL) 12-06 Intramuscu ity of injection 00:00: 23:00 lar, ONCE, [place] 20 mg 00 :00 1 dose, [facility] 12/05/20 at 1900, Routine iopamidol 2020- No [id number] 120mL 120 mL, Univers (ISOVUE 12-05 Intravenou ity o f 370-500 mL) 22:30: 21:20 s, ONCE, 1 [place] injection 00 :00 dose, [facility] Medic al 120 mL 12/05/20 at Branch 1730, Routine famotidine 2020- No 20mg 20 mg, Univ ers (PEPCID 12-05 Slow IV ity of (PF)) 22:15: 22:14 Push, [place] injection 00 :00 ONCE, 1 Medical 20 mg dose, [facility] 12/05/20 at 1715, [place] maalox:diph No 15mL 15 mL, Uni vers enhydrAMINE 12-05 Oral, ity of :lidocaine 22:15: 22:13 ONCE, 1 [place] 2 % viscous 00 :00 dose, Mon Med ical 1:1:1 12/05/20 at [place] (FIRST-MOUT 1715, HWASH BLM) Routine oral suspension 15 mL NaCl 0.9% 2020- No 1000mL at 999 Uni vers (NS) bolus 12-05 mL/hr, ity of infusion 22:00: 23:51 1,000 mL, [place] as 1,000 mL 00 :00 IV Medical Piggyback, [place] ONCE, 1 dose, [facility] 12/05/20 at 1700, STAT ondansetron 2020- No 4mg 4 mg, Slow Univers (ZOFRAN 12-05 IV Push, ity of (PF)) 22:00: 22:13 ONCE, 1 [place] injection 4 00 :00 dose, Mon Med ical mg 12/05/20 at [place] 1700, [place] morpHINE 2020- No 4mg 4 mg, Slow Un you injection 4 12-05 IV Push, ity of mg 22:00: 22:15 ONCE, 1 [place] 00 :00 dose, [facility] 12/05/20 at [place] 1700, STAT ondansetron 0 Yes [id number] 4mg Take 1 [facility] 4 mg 8-23 tablet by ity of disintegrat 00:00: mouth [place] ing tablet 00 every 8 Medica l (eight) Branch hours as needed for Nausea and Vomiting (N/V). ondansetron 2020-0 Yes [id number] 4mg Take 1 [facility] 4 mg 8-23 tablet by ity of disintegrat 00:00: mouth [place] ing tablet 00 every 8 Medica l (eight) Branch hours as needed for Nausea and Vomiting (N/V). ondansetron 2020-0 Yes [id number] 4mg Take 1 [facility] 4 mg 8-23 tablet by ity of disintegrat 00:00: mouth [place] ing tablet 00 every 8 Medica l (eight) Branch hours as needed for Nausea and Vomiting (N/V). ondansetron 2020-0 Yes [id number] 4mg Take 1 [facility] 4 mg 8-23 tablet by ity of disintegrat 00:00: mouth [place] ing tablet 00 every 8 Medica l (eight) Branch hours as needed for Nausea and Vomiting (N/V). ondansetron 2020-0 Yes [id number] 4mg Take 1 [facility] 4 mg 8-23 tablet by ity of disintegrat 00:00: mouth [place] ing tablet 00 every 8 Medica l (eight) Branch hours as needed for Nausea and Vomiting (N/V). ondansetron 2020-0 Yes [id number] 4mg Take 1 [facility] 4 mg 8-23 tablet by ity of disintegrat 00:00: mouth [place] ing tablet 00 every 8 Medica l (eight) Branch hours as needed for Nausea and Vomiting (N/V). ondansetron 2020-0 Yes [id number] 4mg Take 1 [facility] 4 mg 8-23 tablet by ity of disintegrat 00:00: mouth [place] ing tablet 00 every 8 Medica l (eight) Branch hours as needed for Nausea and Vomiting (N/V). ondansetron 2020-0 Yes [id number] 4mg Take 1 [facility] 4 mg 8-23 tablet by ity of disintegrat 00:00: mouth [place] ing tablet 00 every 8 Medica l (eight) Branch hours as needed for Nausea and Vomiting (N/V). ondansetron 2020-0 Yes [id number] 4mg Take 1 [facility] 4 mg 8-23 tablet by ity of disintegrat 00:00: mouth [place] ing tablet 00 every 8 Medica l (eight) Branch hours as needed for Nausea and Vomiting (N/V). ondansetron 2020-0 Yes [id number] 4mg Take 1 [facility] 4 mg 8-23 tablet by ity of disintegrat 00:00: mouth [place] ing tablet 00 every 8 Medica l (eight) Branch hours as needed for Nausea and Vomiting (N/V). ondansetron 2020-0 Yes [id number] 4mg Take 1 [facility] 4 mg 8-23 tablet by ity of disintegrat 00:00: mouth [place] ing tablet 00 every 8 Medica l (eight) Branch hours as needed for Nausea and Vomiting (N/V). ondansetron 0 Yes [id number] 4mg Take 1 [facility] 4 mg 8-23 tablet by ity of disintegrat 00:00: mouth [place] ing tablet 00 every 8 Medica l (eight) Branch hours as needed for Nausea and Vomiting (N/V). ondansetron 0 Yes [id number] 4mg Take 1 [facility] 4 mg 8-23 tablet by ity of disintegrat 00:00: mouth [place] ing tablet 00 every 8 Medica l (eight) Branch hours as needed for Nausea and Vomiting (N/V). ondansetron 0 Yes [id number] 4mg Take 1 [facility] 4 mg 8-23 tablet by ity of disintegrat 00:00: mouth [place] ing tablet 00 every 8 Medica l (eight) Branch hours as needed for Nausea and Vomiting (N/V). ondansetron 0 Yes [id number] 4mg Take 1 [facility] 4 mg 8-23 tablet by ity of disintegrat 00:00: mouth [place] ing tablet 00 every 8 Medica l (eight) Branch hours as needed for Nausea and Vomiting (N/V). ondansetron 0 Yes [id number] 4mg Take 1 [facility] 4 mg 8-23 tablet by ity of disintegrat 00:00: mouth [place] ing tablet 00 every 8 Medica l (eight) Branch hours as needed for Nausea and Vomiting (N/V). ondansetron 0 Yes [id number] 4mg Take 1 [facility] 4 mg 8-23 tablet by ity of disintegrat 00:00: mouth [place] ing tablet 00 every 8 Medica l (eight) Branch hours as needed for Nausea and Vomiting (N/V). ondansetron 0 Yes [id number] 4mg Take 1 [facility] 4 mg 8-23 tablet by ity of disintegrat 00:00: mouth [place] ing tablet 00 every 8 Medica l (eight) Branch hours as needed for Nausea and Vomiting (N/V). ondansetron 2020-0 Yes [id number] 4mg Take 1 [facility] 4 mg 8-23 tablet by ity of disintegrat 00:00: mouth [place] ing tablet 00 every 8 Medica l (eight) Branch hours as needed for Nausea and Vomiting (N/V). ondansetron 0 Yes [id number] 4mg Take 1 [facility] 4 mg 8-23 tablet by ity of disintegrat 00:00: mouth [place] ing tablet 00 every 8 Medica l (eight) Branch hours as needed for Nausea and Vomiting (N/V). ondansetron 0 Yes [id number] 4mg Take 1 [facility] 4 mg 8-23 tablet by ity of disintegrat 00:00: mouth [place] ing tablet 00 every 8 Medica l (eight) Branch hours as needed for Nausea and Vomiting (N/V). ondansetron Yes [id number] 4mg Take 1 [facility] 4 mg 8-23 tablet by ity of disintegrat 00:00: mouth [place] ing tablet 00 every 8 Medica l (eight) Branch hours as needed for Nausea and Vomiting (N/V). ondansetron Yes [id number] 4mg Take 1 [facility] 4 mg 8-23 tablet by ity of disintegrat 00:00: mouth [place] ing tablet 00 every 8 Medica l (eight) Branch hours as needed for Nausea and Vomiting (N/V). ondansetron Yes [id number] 4mg Take 1 [facility] 4 mg 8-23 tablet by ity of disintegrat 00:00: mouth [place] ing tablet 00 every 8 Medica l (eight) Branch hours as needed for Nausea and Vomiting (N/V). ondansetron 2021- No [id number] 4mg Take 1 [facility] 4 mg 8-23 02-06 tablet by ity of disintegrat 00:00: 00:00 mouth [place] tablet 00 :00 every 8 Medica l (eight) Branch hours as needed for Nausea and Vomiting (N/V). dicyclomine 2020- No [id number] 20mg Take 1 [facility] 20 mg 8-23 08-31 tablet by ity of tablet 00:00: 04:59 mouth 4 [place] 00 :00 (four) Medical times Branch daily for 7 days. fenofibrate Yes 134mg 134 mg, Un you micronized 10-13 Oral, ity of (LOFIBRA) 14:00: DAILY, [place] capsule 134 00 First dose Me dical mg on [place] Branch 10/13/20 at 0900, Until Discontinu ed, Routine traZODone 0 Yes 100mg Take 100 Uni vers 100 mg 7-01 mg by ity of tablet 01:44: mouth at [place] 06 bedtime. Medical Branch losartan 0 Yes 100mg Take 100 Univ ers 100 mg 7-01 mg by ity of tablet 01:44: mouth [place] 06 daily. Medical Branch gabapentin 0 Yes 300mg Take 300 Un you 300 mg 7-01 mg by ity of capsule 01:44: mouth 2 [place] 06 (two) Medical times Branch daily. traZODone 0 Yes 100mg Take 100 Uni vers 100 mg 7-01 mg by ity of tablet 01:44: mouth at [place] 06 bedtime. Medical Branch losartan 0 Yes 100mg Take 100 Univ ers 100 mg 7-01 mg by ity of tablet 01:44: mouth [place] 06 daily. Medical Branch gabapentin Yes 300mg Take 300 Un you 300 mg 7-01 mg by ity of capsule 01:44: mouth 2 [place] [address] (two) Medical times [place] daily. HYDROcodone Yes 1{tbl} 1 tablet, Univers -acetaminop 7- Oral, BID, it y of hen (NORCO 01:00: First dose [place] 5) 5-325 mg 00 on Sat Medica l tablet 1 10/12/20 at [facility] h tablet 1999, Until Discontinu ed, Routine proMETHazin 2020- No 25mg 25 mg, Uni vers e 10-12 Oral, ity of (PHENERGAN) 17:45: 20:05 ONCE, 1 [place] tablet 25 00 :00 dose, Sat Medic al mg 10/12/20 at Branch 1245, Routine tiZANidine 0 2020- No 4mg 4 mg, Unive rs (ZANAFLEX) 10-12-30 Oral, ity of tablet 4 mg 17:45: 20:05 ONCE, 1 [place] 00 :00 dose, [facility] Medical 10/12/20 at Branch 1245, Routine lipase-prot 2020-0 Yes 3{capsu 3 capsule, Univers ease-amylas 6- le} Oral, TID ity of e (CREON) 17:00: MEALS, [place] 12,000-38,0 00 First dose Me dical 00 -60,000 on Sat Branch unit 10/12/20 at capsule 3 1200, capsule Until Discontinu ed, Routine losartan 0 Yes 100mg 100 mg, Unive rs (COZAAR) 6-30 Oral, ity of tablet 100 14:00: DAILY, [place] mg 00 First dose Medical on Sat [place] 10/12/20 at 0900, Until Discontinu ed, Routine ursodioL 0 Yes 250mg 250 mg, Unive rs (EUGENE) 6-30 Oral, BID, ity of tablet 250 13:00: First dose [place] mg 00 on [facility] 10/12/20 at Branch 0800, Until Discontinu ed, Routine heparin 0 Yes 5000U 5,000 Univers (porcine) 6-30 Units, ity of injection 13:00: [place]o [place] 5,000 Units 00 us, Q12H, Med ical First dose Branch on Sat10/12/20 at 0800, Until Discontinu ed, Routine traZODone Yes 100mg 100 mg, Univ ers (DESYREL) 630 Oral, QHS, ity of tablet 100 03:00: First dose [place] mg 00 on [facility] 10/11/20 at Branch 2200, Until Discontinu ed, Routine gabapentin 0 Yes 300mg 300 mg, Uni vers (NEURONTIN) 630 Oral, BID, it y of capsule 300 03:00: First dose [place] mg 00 on [facility] 10/11/20 at Branch 2200, Until Discontinu ed, Routine ondansetron 0 Yes 4mg 4 mg, Slow Univers (ZOFRAN 30 IV Push, ity of (PF)) 02:52: Q6HPRN, [place] injection 4 29 Starting Medi brandy mg [facility] 10/11/20 at 2152, Until Discontinu ed, Routine, Nausea and Vomiting (N/V) HYDROcodone 2020-0 202- No 1{tbl} 1 tablet, Univers -acetaminop 10-12 06-30 Oral, ity of hen (NORCO) 02:52: 15:44 Q6HPRN, [place] 10-325 mg 25 :37 Starting Medica l tablet 1 [facility] tablet 10/11/20 at 2152, Until 10/12/20 at 1044, Routine, Pain (scale 7-10) HYDROcodone 2020- No 1{tbl} 1 tablet, Univers -acetaminop 10-12 07-02 Oral, ity of hen (NORCO 02:51: 02:50 Q6HPRN, [place] 5) 5-325 mg 18 :18 Starting Medi brandy tablet 1 [facility] tablet 10/11/20 at 2151, Until [place] 10/13/20 at 2150, Routine, Pain (scale 4-6) ibuprofen 0 Yes 200mg 200 mg, Univ ers (MOTRIN IB) 6-30 Oral, ity of tablet 200 02:51: Q6HPRN, [place] mg 13 Starting Medical [facility] 10/11/20 at 2151, Until Discontinu ed, Routine, Pain (scale 1-3) morpHINE 2020- No 4mg 4 mg, Slow Un you injection 4 30 06-30 IV Push, ity of mg 01:15: 00:14 ONCE, 1 [place] 00 :00 dose, [facility] 10/11/20 at Branch 2015, STAT fenofibrate Yes [id number] 145mg Take 1 Univers 145 mg 6-30 tablet by ity of tablet 00:00: mouth [place] 00 daily. [facility] Branch lipase-prot Yes 3{capsu Take 3 Univers ease-amylas 6-30 le} capsules ity of e 00:00: by mouth 3 [place] 12,000-38,0 00 (three) Medic al 00 -60,000 times Branch unit daily with capsule meals. ursodioL 0 Yes [id number] 250mg Take 1 Un you 250 mg 6-30 tablet by ity of tablet 00:00: mouth 2 [place] 00 (two) Medical times Branch daily. fenofibrate 0 Yes [id number] 145mg Take 1 Univers 145 mg 6-30 tablet by ity of tablet 00:00: mouth [place] 00 daily. [facility] Branch lipase-prot 0 Yes 3{capsu Take 3 Univers ease-amylas 6-30 le} capsules ity of e 00:00: by mouth 3 [place] 12,000-38,0 00 (three) Medic al 00 -60,000 times Branch unit daily with capsule meals. ursodioL 2020-0 Yes [id number] 250mg Take 1 Un you 250 mg 6-30 tablet by ity of tablet 00:00: mouth 2 (two) Medical times Branch daily. fenofibrate 2020-0 Yes [id number] 145mg Take 1 [facility] 145 mg 6-30 tablet by ity of tablet 00:00: mouth 00 daily. Medical Branch lipase-prot 2020-0 Yes [id number] 3{capsu Take 3 [facility] ease-amylas 6-30 le} capsules ity of e 00:00: by mouth 3 [place] 12,000-38,0 00 (three) Medic al 00 -60,000 times Branch unit daily with capsule meals. ursodioL 2020-0 Yes [id number] 250mg Take 1 Un you 250 mg 6-30 tablet by ity of tablet 00:00: mouth (two) Medical times Branch daily. fenofibrate 2020-0 Yes [id number] 145mg Take 1 Univers 145 mg 6-30 tablet by ity of tablet 00:00: mouth 00 daily. Medical Branch lipase-prot 2020-0 Yes [id number] 3{capsu Take 3 [facility] ease-amylas 6-30 le} capsules ity of e 00:00: by mouth 3 [place] 12,000-38,0 00 (three) Medic al 00 -60,000 times Branch unit daily with capsule meals. ursodioL 2020-0 Yes [id number] 250mg Take 1 Un you 250 mg 6-30 tablet by ity of tablet 00:00: mouth (two) Medical times Branch daily. fenofibrate 2020-0 Yes [id number] 145mg Take 1 Univers 145 mg 6-30 tablet by ity of tablet 00:00: mouth 00 daily. Medical Branch lipase-prot 2020-0 Yes [id number] 3{capsu Take 3 Univers ease-amylas 6-30 le} capsules ity of e 00:00: by mouth 3 [place] 12,000-38,0 00 (three) Medic al 00 -60,000 times Branch unit daily with capsule meals. ursodioL 2020-0 Yes [id number] 250mg Take 1 Un you 250 mg 6-30 tablet by ity of tablet 00:00: mouth 2 00 (two) Medical times Branch daily. fenofibrate 2020-0 Yes [id number] 145mg Take 1 Univers 145 mg 6-30 tablet by ity of tablet 00:00: mouth [place] 00 daily. Medical Branch lipase-prot 2020-0 Yes [id number] 3{capsu Take 3 Univers ease-amylas 6-30 le} capsules ity of e 00:00: by mouth 3 [place] 12,000-38,0 00 (three) Medic al 00 -60,000 times Branch unit daily with capsule meals. ursodioL 2020-0 Yes [id number] 250mg Take 1 Un you 250 mg 6-30 tablet by ity of tablet 00:00: mouth 2 00 (two) Medical times Branch daily. fenofibrate 2020-0 Yes [id number] 145mg Take 1 [facility] 145 mg 6-30 tablet by ity of tablet 00:00: mouth [place] 00 daily. Medical Branch lipase-prot 2020-0 Yes [id number] 3{capsu Take 3 [facility] ease-amylas 6-30 le} capsules ity of e 00:00: by mouth 3 [place] 12,000-38,0 00 (three) Medic al 00 -60,000 times Branch unit daily with capsule meals. ursodioL 2020-0 Yes [id number] 250mg Take 1 Un you 250 mg 6-30 tablet by ity of tablet 00:00: mouth 2 (two) Medical times Branch daily. fenofibrate 2020-0 Yes [id number] 145mg Take 1 Univers 145 mg 6-30 tablet by ity of tablet 00:00: mouth 00 daily. Medical Branch lipase-prot 2020-0 Yes [id number] 3{capsu Take 3 [facility] ease-amylas 6-30 le} capsules ity of e 00:00: by mouth 3 [place] 12,000-38,0 00 (three) Medic al 00 -60,000 times Branch unit daily with capsule meals. ursodioL 2020-0 Yes [id number] 250mg Take 1 Un you 250 mg 6-30 tablet by ity of tablet 00:00: mouth 2 00 (two) Medical times Branch daily. fenofibrate 2020-0 Yes [id number] 145mg Take 1 Univers 145 mg 6-30 tablet by ity of tablet 00:00: mouth [place] 00 daily. Medical Branch lipase-prot 2020-0 Yes [id number] 3{capsu Take 3 Univers ease-amylas 6-30 le} capsules ity of e 00:00: by mouth 3 [place] 12,000-38,0 00 (three) Medic al 00 -60,000 times Branch unit daily with capsule meals. ursodioL 2020-0 Yes [id number] 250mg Take 1 Un you 250 mg 6-30 tablet by ity of tablet 00:00: mouth 2 00 (two) Medical times Branch daily. fenofibrate 2020-0 Yes [id number] 145mg Take 1 Univers 145 mg 6-30 tablet by ity of tablet 00:00: mouth [place] 00 daily. Medical Branch lipase-prot 2020-0 Yes [id number] 3{capsu Take 3 Univers ease-amylas 6-30 le} capsules ity of e 00:00: by mouth 3 [place] 12,000-38,0 00 (three) Medic al 00 -60,000 times Branch unit daily with capsule meals. ursodioL 2020-0 Yes [id number] 250mg Take 1 Un you 250 mg 6-30 tablet by ity of tablet 00:00: mouth 2 00 (two) Medical times Branch daily. fenofibrate 2020-0 Yes [id number] 145mg Take 1 Univers 145 mg 6-30 tablet by ity of tablet 00:00: mouth 00 daily. Medical Branch lipase-prot 2020-0 Yes [id number] 3{capsu Take 3 Univers ease-amylas 6-30 le} capsules ity of e 00:00: by mouth 3 [place] 12,000-38,0 00 (three) Medic al 00 -60,000 times Branch unit daily with capsule meals. ursodioL 2020-0 Yes [id number] 250mg Take 1 Un you 250 mg 6-30 tablet by ity of tablet 00:00: mouth 2 00 (two) Medical times Branch daily. fenofibrate 2020-0 Yes [id number] 145mg Take 1 Univers 145 mg 6-30 tablet by ity of tablet 00:00: mouth [place] 00 daily. Medical Branch lipase-prot 2020-0 Yes [id number] 3{capsu Take 3 [facility] ease-amylas 6-30 le} capsules ity of e 00:00: by mouth 3 [place] 12,000-38,0 00 (three) Medic al 00 -60,000 times Branch unit daily with capsule meals. ursodioL 2020-0 Yes [id number] 250mg Take 1 Un you 250 mg 6-30 tablet by ity of tablet 00:00: mouth 2 (two) Medical times Branch daily. fenofibrate 2020-0 Yes [id number] 145mg Take 1 [facility] 145 mg 6-30 tablet by ity of tablet 00:00: mouth [place] 00 daily. Medical Branch lipase-prot 2020-0 Yes [id number] 3{capsu Take 3 [facility] ease-amylas 6-30 le} capsules ity of e 00:00: by mouth 3 [place] 12,000-38,0 00 (three) Medic al 00 -60,000 times Branch unit daily with capsule meals. ursodioL 2020-0 Yes [id number] 250mg Take 1 Un you 250 mg 6-30 tablet by ity of tablet 00:00: mouth 2 (two) Medical times Branch daily. fenofibrate 2020-0 Yes [id number] 145mg Take 1 [facility] 145 mg 6-30 tablet by ity of tablet 00:00: mouth 00 daily. Medical Branch lipase-prot 2020-0 Yes [id number] 3{capsu Take 3 [facility] ease-amylas 6-30 le} capsules ity of e 00:00: by mouth 3 [place] 12,000-38,0 00 (three) Medic al 00 -60,000 times Branch unit daily with capsule meals. ursodioL 2020-0 Yes [id number] 250mg Take 1 [facility] 250 mg 6-30 tablet by ity of tablet 00:00: mouth 2 (two) Medical times Branch daily. fenofibrate 2020-0 Yes [id number] 145mg Take 1 [facility] 145 mg 6-30 tablet by ity of tablet 00:00: mouth [place] 00 daily. Medical Branch lipase-prot 2020-0 Yes [id number] 3{capsu Take 3 [facility] ease-amylas 6-30 le} capsules ity of e 00:00: by mouth 3 [place] 12,000-38,0 00 (three) Medic al 00 -60,000 times Branch unit daily with capsule meals. ursodioL 2020-0 Yes [id number] 250mg Take 1 Un you 250 mg 6-30 tablet by ity of tablet 00:00: mouth 2 00 (two) Medical times Branch daily. fenofibrate 2020-0 Yes [id number] 145mg Take 1 [facility] 145 mg 6-30 tablet by ity of tablet 00:00: mouth [place] 00 daily. Medical Branch lipase-prot 2020-0 Yes [id number] 3{capsu Take 3 [facility] ease-amylas 6-30 le} capsules ity of e 00:00: by mouth 3 [place] 12,000-38,0 00 (three) Medic al 00 -60,000 times Branch unit daily with capsule meals. ursodioL 2020-0 Yes [id number] 250mg Take 1 [facility] 250 mg 6-30 tablet by ity of tablet 00:00: mouth 2 00 (two) Medical times Branch daily. fenofibrate 2020-0 Yes [id number] 145mg Take 1 [facility] 145 mg 6-30 tablet by ity of tablet 00:00: mouth [place] 00 daily. Medical Branch lipase-prot 2020-0 Yes [id number] 3{capsu Take 3 [facility] ease-amylas 6-30 le} capsules ity of e 00:00: by mouth 3 [place] 12,000-38,0 00 (three) Medic al 00 -60,000 times Branch unit daily with capsule meals. ursodioL 2020-0 Yes [id number] 250mg Take 1 [facility] you 250 mg 6-30 tablet by ity of tablet 00:00: mouth 2 (two) Medical times Branch daily. fenofibrate 2020-0 Yes [id number] 145mg Take 1 [facility] 145 mg 6-30 tablet by ity of tablet 00:00: mouth [place] 00 daily. Medical Branch lipase-prot 2020-0 Yes [id number] 3{capsu Take 3 [facility] ease-amylas 6-30 le} capsules ity of e 00:00: by mouth 3 [place] 12,000-38,0 00 (three) Medic al 00 -60,000 times Branch unit daily with capsule meals. ursodioL 2020-0 Yes [id number] 250mg Take 1 [facility] 250 mg 6-30 tablet by ity of tablet 00:00: mouth 2 [place] 00 (two) Medical times Branch daily. fenofibrate 2020-0 Yes [id number] 145mg Take 1 [facility] 145 mg 6-30 tablet by ity of tablet 00:00: mouth [place] 00 daily. Medical Branch lipase-prot 2020-0 Yes [id number] 3{capsu Take 3 [facility] ease-amylas 6-30 le} capsules ity of e 00:00: by mouth 3 [place] 12,000-38,0 00 (three) Medic al 00 -60,000 times Branch unit daily with capsule meals. ursodioL 2020-0 Yes [id number] 250mg Take 1 [facility] 250 mg 6-30 tablet by ity of tablet 00:00: mouth 2 [place] 00 (two) Medical times Branch daily. fenofibrate 2020-0 Yes [id number] 145mg Take 1 [facility] 145 mg 6-30 tablet by ity of tablet 00:00: mouth [place] 00 daily. Medical Branch lipase-prot 2020-0 Yes [id number] 3{capsu Take 3 [facility] ease-amylas 6-30 le} capsules ity of e 00:00: by mouth 3 [place] 12,000-38,0 00 (three) Medic al 00 -60,000 times Branch unit daily with capsule meals. ursodioL 2020-0 Yes [id number] 250mg Take 1 [facility] 250 mg 6-30 tablet by ity of tablet 00:00: mouth 2 [place] 00 (two) Medical times Branch daily. fenofibrate 2020-0 Yes [id number] 145mg Take 1 [facility] 145 mg 6-30 tablet by ity of tablet 00:00: mouth [place] 00 daily. Medical Branch fenofibrate 2020-0 Yes [id number] 145mg Take 1 [facility] 145 mg 6-30 tablet by ity of tablet 00:00: mouth [place] 00 daily. Medical Branch lipase-prot 2020-0 Yes [id number] 3{capsu Take 3 [facility] ease-amylas 6-30 le} capsules ity of e 00:00: by mouth 3 [place] 12,000-38,0 00 (three) Medic al 00 -60,000 times Branch unit daily with capsule meals. ursodioL 2020-0 Yes [id number] 250mg Take 1 [facility] 250 mg 6-30 tablet by ity of tablet 00:00: mouth 2 [place] 00 (two) Medical times Branch daily. lipase-prot 2020-0 Yes [id number] 3{capsu Take 3 [facility] ease-amylas 6-30 le} capsules ity of e 00:00: by mouth 3 [place] 12,000-38,0 00 (three) Medic al 00 -60,000 times Branch unit daily with capsule meals. ursodioL 2020-0 Yes [id number] 250mg Take 1 [facility] you 250 mg 6-30 tablet by ity of tablet 00:00: mouth 2 [place] 00 (two) Medical times Branch daily. fenofibrate 2020-0 Yes [id number] 145mg Take 1 [facility] 145 mg 6-30 tablet by ity of tablet 00:00: mouth [place] 00 daily. Medical Branch lipase-prot 2020-0 Yes [id number] 3{capsu Take 3 [facility] ease-amylas 6-30 le} capsules ity of e 00:00: by mouth 3 [place] 12,000-38,0 00 (three) Medic al 00 -60,000 times Branch unit daily with capsule meals. ursodioL 2020-0 Yes [id number] 250mg Take 1 [facility] you 250 mg 6-30 tablet by ity of tablet 00:00: mouth 2 [place] 00 (two) Medical times Branch daily. fenofibrate 2020-0 Yes [id number] 145mg Take 1 [facility] 145 mg 6-30 tablet by ity of tablet 00:00: mouth [place] 00 daily. Medical Branch lipase-prot 2020- Yes [id number] 3{capsu Take 3 [facility] ease-amylas 6-30 le} capsules ity of e 00:00: by mouth 3 [place] 12,000-38,0 00 (three) Medic al 00 -60,000 times Branch unit daily with capsule meals. ursodioL 2020-0 Yes [id number] 250mg Take 1 [facility] 250 mg 6-30 tablet by ity of tablet 00:00: mouth 2 [place] 00 (two) Medical times Branch daily. fenofibrate 2020-0 Yes [id number] 145mg Take 1 [facility] 145 mg 6-30 tablet by ity of tablet 00:00: mouth [place] 00 daily. Medical Branch fenofibrate 2020-0 Yes [id number] 145mg Take 1 [facility] 145 mg 6-30 tablet by ity of tablet 00:00: mouth [place] 00 daily. Medical Branch fenofibrate 2020-0 Yes [id number] 145mg Take 1 [facility] 145 mg 6-30 tablet by ity of tablet 00:00: mouth [place] 00 daily. Medical Branch lipase-prot 2020-0 Yes [id number] 3{capsu Take 3 [facility] ease-amylas 6-30 le} capsules ity of e 00:00: by mouth 3 [place] 12,000-38,0 00 (three) Medic al 00 -60,000 times Branch unit daily with capsule meals. ursodioL Yes [id number] 250mg Take 1 [facility] you 250 mg 6-30 tablet by ity of tablet 00:00: mouth 2 [place] 00 (two) Medical times Branch daily. fenofibrate 0 Yes [id number] 145mg Take 1 [facility] 145 mg 6-30 tablet by ity of tablet 00:00: mouth [place] 00 daily. Medical Branch fenofibrate 0 Yes [id number] 145mg Take 1 [facility] 145 mg 6-30 tablet by ity of tablet 00:00: mouth [place] 00 daily. Medical Branch fenofibrate 2020-0 Yes [id number] 145mg Take 1 [facility] 145 mg 6-30 tablet by ity of tablet 00:00: mouth [place] 00 daily. Medical Branch fenofibrate 0 Yes [id number] 145mg Take 1 [facility] 145 mg 6-30 tablet by ity of tablet 00:00: mouth [place] 00 daily. Medical Branch fenofibrate 2020-0 Yes [id number] 145mg Take 1 [facility] 145 mg 6-30 tablet by ity of tablet 00:00: mouth [place] 00 daily. Medical Branch fenofibrate 2020-0 Yes [id number] 145mg Take 1 [facility] 145 mg 6-30 tablet by ity of tablet 00:00: mouth [place] 00 daily. Medical Branch fenofibrate 2020-0 Yes [id number] 145mg Take 1 [facility] 145 mg 6-30 tablet by ity of tablet 00:00: mouth [place] 00 daily. Medical Branch fenofibrate 2020-0 Yes [id number] 145mg Take 1 [facility] 145 mg 6-30 tablet by ity of tablet 00:00: mouth [place] 00 daily. Medical Branch fenofibrate 2020-0 Yes [id number] 145mg Take 1 [facility] 145 mg 6-30 tablet by ity of tablet 00:00: mouth [place] 00 daily. Medical Branch fenofibrate 2020-0 Yes [id number] 145mg Take 1 [facility] 145 mg 6-30 tablet by ity of tablet 00:00: mouth [place] 00 daily. Medical Branch fenofibrate 2020-0 Yes [id number] 145mg Take 1 [facility] 145 mg 6-30 tablet by ity of tablet 00:00: mouth [place] 00 daily. Medical Branch fenofibrate 2020-0 Yes [id number] 145mg Take 1 [facility] 145 mg 6-30 tablet by ity of tablet 00:00: mouth [place] 00 daily. Medical Branch fenofibrate Yes 145mg Take 1 [facility] 145 mg 6-30 tablet by ity of tablet 00:00: mouth [place] 00 daily. Medical Branch fenofibrate Yes 145mg Take 1 [facility] 145 mg 6-30 tablet by ity of tablet 00:00: mouth [place] 00 daily. Medical Branch fenofibrate Yes 145mg Take 1 [facility] 145 mg 6-30 tablet by ity of tablet 00:00: mouth [place] 00 daily. [facility] Branch fenofibrate Yes 145mg Take 1 [facility] 145 mg 6-30 tablet by ity of tablet 00:00: mouth [place] 00 daily. Medical Branch fenofibrate Yes [id number] 145mg Take 1 [facility] 145 mg 6-30 tablet by ity of tablet 00:00: mouth [place] 00 daily. [facility] Branch fenofibrate Yes [id number] 145mg Take 1 [facility] 145 mg 6-30 tablet by ity of tablet 00:00: mouth [place] 00 daily. [facility] Branch fenofibrate Yes [id number] 145mg Take 1 [facility] 145 mg 6-30 tablet by ity of tablet 00:00: mouth [place] 00 daily. [facility] Branch fenofibrate 2021- No [id number] 145mg Take 1 [facility] 145 mg 6-30 10-25 tablet by ity of tablet 00:00: 00:00 mouth [place] 00 :00 daily. Medical Branch lipase-prot 2021- No [id number] 3{capsu Take 3 [facility] ease-amylas 6-30 05-21 le} capsules ity of e 00:00: 00:00 by mouth 3 [place] 12,000-38,0 00 :00 (three) Medic al 00 -60,000 times Branch unit daily with capsule meals. ursodioL 2021- No [id number] 250mg Take 1 [facility] n[facility] 250 mg 6-30 02 tablet by ity of tablet 00:00: 00:00 mouth 2 [place] 00 :00 (two) Medical times Branch daily. morpHINE 2020- No 6mg 6 mg, Slow Un you injection 6 6-29 06-29 IV Push, ity of mg 22:15: 21:09 ONCE, 1 [place] 00 :00 dose, [facility] 10/11/20 at Branch 1715, STAT FENTanyl PF 2020-0 2020- No 100ug 100 mcg, Univers (SUBLIMAZE 10-11 Slow IV ity o f (PF)) 20:00: 18:53 Push, [place] injection 00 :00 ONCE, 1 Medical 100 mcg dose, [facility] 10/11/20 at 1500, Routine ondansetron 2020-0 202- No 4mg 4 mg, Slow [facility] (ZOFRAN 10-11 IV Push, ity of (PF)) 20:00: 18:54 ONCE, 1 [place] injection 4 00 :00 dose, Tue Med ical mg 10/11/20 at Branch 1500, [facility] morpHINE 2020-0 202- No 6mg 6 mg, Slow Un you injection 6 10-11 IV Push, ity of mg 16:45: 15:42 ONCE, 1 [place] 00 :00 dose, [facility] 10/11/20 at Branch 1145, STAT FENTanyl PF 2020-0 2020- No 100ug 100 mcg, Univers (SUBLIMAZE 10-11 Slow IV ity o f (PF)) 16:15: 15:06 Push, [place] injection 00 :00 ONCE, 1 Medical 100 mcg dose, [facility] 10/11/20 at 1115, Routine metoclopram 2020-2020- No 10mg 10 mg, Uni vers selena HCl 10-11 Slow IV ity of (REGLAN) 16:15: 15:06 Push, [place] injection 00 :00 ONCE, 1 Medical 10 mg dose, [facility] 10/11/20 at 1115, [place] morpHINE 2020-0 202- No 4mg 4 mg, Slow Un you injection 4 10-05 IV Push, ity of mg 01:15: 00:15 ONCE, 1 [place] 00 :00 dose, [facility] 10/04/20 at Branch 2015, STAT ondansetron 2020-0 2021- No 4mg 4 mg, Slow Univers [...] dose, 10/04/20 at 1800, [facility] promethazin Yes [id number] 50mg Insert 1 [facility] e 50 mg 6-22 Suppositor ity of suppository 00:00: [place] rectum Medical every 6 Branch (six) hours as needed for Nausea and Vomiting (N/V). ondansetron Yes [id number] 4mg Take 1 [facility] (ZOFRAN 6-22 tablet by ity of ODT) 4 mg 00:00: mouth [place] disintegrat 00 every 8 Medic al ing tablet (eight) Branch hours as needed for Nausea and Vomiting (N/V). promethazin Yes [id number] 50mg Insert 1 [facility] e 50 mg 6-22 Suppositor ity of suppository 00:00: y [place] rectum Medical every 6 Branch (six) hours as needed for Nausea and Vomiting (N/V). promethazin Yes [id number] 50mg Insert 1 [facility] e 50 mg 6-22 Suppositor ity of suppository 00:00: y [place] 00 rectum Medical every 6 Branch (six) hours as needed for Nausea and Vomiting (N/V). promethazin Yes [id number] 50mg Insert 1 [facility] e 50 mg 6-22 Suppositor ity of suppository 00:00: y [place] 00 rectum Medical every 6 Branch (six) hours as needed for Nausea and Vomiting (N/V). promethazin Yes [id number] 50mg Insert 1 [facility] e 50 mg 6-22 Suppositor ity of suppository 00:00: y [place] 00 rectum Medical every 6 Branch (six) hours as needed for Nausea and Vomiting (N/V). promethazin Yes [id number] 50mg Insert 1 [facility] e 50 mg 6-22 Suppositor ity of suppository 00:00: y [place] 00 rectum Medical every 6 Branch (six) hours as needed for Nausea and Vomiting (N/V). promethazin Yes [id number] 50mg Insert 1 [facility] e 50 mg 6-22 Suppositor ity of suppository 00:00: y [place] 00 rectum Medical every 6 Branch (six) hours as needed for Nausea and Vomiting (N/V). promethazin Yes [id number] 50mg Insert 1 [facility] e 50 mg 6-22 Suppositor ity of suppository 00:00: y [place] 00 rectum Medical every 6 Branch (six) hours as needed for Nausea and Vomiting (N/V). promethazin Yes [id number] 50mg Insert 1 [facility] e 50 mg 6-22 Suppositor ity of suppository 00:00: y [place] 00 rectum Medical every 6 Branch (six) hours as needed for Nausea and Vomiting (N/V). promethazin Yes [id number] 50mg Insert 1 [facility] e 50 mg 6-22 Suppositor ity of suppository 00:00: y [place] 00 rectum Medical every 6 Branch (six) hours as needed for Nausea and Vomiting (N/V). promethazin Yes [id number] 50mg Insert 1 [facility] e 50 mg 6-22 Suppositor ity of suppository 00:00: y [place] 00 rectum Medical every 6 Branch (six) hours as needed for Nausea and Vomiting (N/V). promethazin Yes [id number] 50mg Insert 1 [facility] e 50 mg 6-22 Suppositor ity of suppository 00:00: y [place] 00 rectum Medical every 6 Branch (six) hours as needed for Nausea and Vomiting (N/V). promethazin Yes [id number] 50mg Insert 1 [facility] e 50 mg 6-22 Suppositor ity of suppository 00:00: y into [place] 00 rectum Medical every 6 Branch (six) hours as needed for Nausea and Vomiting (N/V). promethazin Yes [id number] 50mg Insert 1 [facility] e 50 mg 6-22 Suppositor ity of suppository 00:00: y into [place] 00 rectum Medical every 6 Branch (six) hours as needed for Nausea and Vomiting (N/V). promethazin Yes [id number] 50mg Insert 1 [facility] e 50 mg 6-22 Suppositor ity of suppository 00:00: y into [place] 00 rectum Medical every 6 Branch (six) hours as needed for Nausea and Vomiting (N/V). promethazin Yes [id number] 50mg Insert 1 [facility] e 50 mg 6-22 Suppositor ity of suppository 00:00: y into [place] 00 rectum Medical every 6 Branch (six) hours as needed for Nausea and Vomiting (N/V). promethazin Yes [id number] 50mg Insert 1 [facility] e 50 mg 6-22 Suppositor ity of suppository 00:00: y [place] 00 rectum Medical every 6 Branch (six) hours as needed for Nausea and Vomiting (N/V). promethazin Yes [id number] 50mg Insert 1 [facility] e 50 mg 6-22 Suppositor ity of suppository 00:00: y into [place] 00 rectum Medical every 6 Branch (six) hours as needed for Nausea and Vomiting (N/V). promethazin Yes [id number] 50mg Insert 1 [facility] e 50 mg 6-22 Suppositor ity of suppository 00:00: y into [place] 00 rectum Medical every 6 Branch (six) hours as needed for Nausea and Vomiting (N/V). promethazin Yes [id number] 50mg Insert 1 [facility] e 50 mg 6-22 Suppositor ity of suppository 00:00: y into [place] 00 rectum Medical every 6 Branch (six) hours as needed for Nausea and Vomiting (N/V). promethazin Yes [id number] 50mg Insert 1 [facility] e 50 mg 6-22 Suppositor ity of suppository 00:00: y [place] 00 rectum Medical every 6 Branch (six) hours as needed for Nausea and Vomiting (N/V). promethazin 2021- No [id number] 50mg Insert 1 [facility] e 50 mg 10-04 Suppositor ity o f suppository 00:00: 00:00 y into [place] 00 :00 rectum Medical every 6 Branch (six) hours as needed for Nausea and Vomiting (N/V). ondansetron 2020- No [id number] 4mg Take 1 [facility] (ZOFRAN 10-04 06-30 [...] 1{capsu TID Gabapentin 300 MG 300 MG 6 le} 300 MG 00:00: 00 diazePAM 2020-0 Yes 2mg Take [address] [facility] (VALIUM) 2 5-28 by mouth 2 [facility] tablet 13:24: (two) Medical 24 times Center daily as needed for Anxiety. losartan Yes TAKE [address] [facility] (COZAAR) 5-28 TABLET BY [facility] 100 MG 13:24: MOUTH Medical tablet 24 EVERY DAY Center diazePAM 2020-0 Yes 2mg Take [address] [facility] (VALIUM) 2 5-28 by mouth 2 [facility] MG tablet 13:24: (two) Medical 24 times Center daily as needed for Anxiety. losartan Yes TAKE [address] [facility] (COZAAR) 5-28 TABLET BY [facility] 100 MG 13:24: MOUTH Medical tablet 24 EVERY DAY Center diazePAM 2020-0 Yes 2mg Take [address] [facility] (VALIUM) 2 5-28 by mouth 2 [place] [facility] MG tablet 13:24: (two) Medical 24 times Center daily as needed for Anxiety. losartan Yes TAKE [address] [facility] (COZAAR) 5-28 TABLET BY [facility] 100 MG 13:24: MOUTH Medical tablet 24 EVERY DAY Center diazePAM 2020-0 Yes 2mg Take [address] [facility] (VALIUM) 2 5-28 by mouth 2 [facility] MG tablet 13:24: (two) Medical 24 times Center daily as needed for Anxiety. losartan Yes TAKE [address] [facility] (COZAAR) 5-28 TABLET BY [facility] 100 MG 13:24: MOUTH Medical tablet 24 EVERY DAY Center diazePAM 2020-0 Yes 2mg Take [address] [facility] (VALIUM) 2 5-28 by mouth 2 [place] [facility] MG tablet 13:24: (two) Medical 24 times Center daily as needed for Anxiety. losartan Yes TAKE [address] [facility] (COZAAR) 5-28 TABLET BY [facility] 100 MG 13:24: MOUTH Medical tablet 24 EVERY DAY Center diazePAM 2020-0 Yes 2mg Take [address] [facility] [...] MOUTH Medical tablet 24 EVERY DAY Center losartan Yes TAKE [address] [facility] (COZAAR) 5-28 TABLET BY [facility] 100 MG 13:24: MOUTH Medical tablet 24 EVERY DAY Center diazePAM Yes 2mg Take [address] [facility] (VALIUM) 2 5-28 by mouth 2 [facility] [facility] MG tablet 13:24: (two) Medical 24 times Center daily as needed for Anxiety. pancrelipas 2021- No [id number]{ Take [address] [facility], - 05-28 lipase} capsules [facility] Lip-Prot-Am 00:00: 23:59 (72,000 Me dical yl, (CREON) 00 :00 units of Cent er 24,000-76,0 lipase 00 -120,000 total) by unit CpDR mouth 3 capsule (three) times daily with meals. ursodioL 2021- No 500mg Q.5D Take 1 [facility]ACTIGALL[facility] - [facility]- [facility] 500 MG 00:00: 23:59 (500 mg Medical tablet 00 :00 total) by Center mouth 2 (two) times daily. pancrelipas 2021- No [id number]{ Take [address] [facility], - 05-28 [...] 2 (two) times daily. pancrelipas 2021- No [id number]{ Take [address] [facility], 5-28 05-28 [...] 2 (two) times daily. pancrelipas 2021- No [id number]{ Take [address] [facility], 5-28 05-28 [...] 2 (two) times daily. pancrelipas 2021- No [id number]{ Take [address] [facility], 5-28 05-28 [...] 2 (two) times daily. pancrelipas 2021- No [id number]{ Take [address] [facility], 5-28 05-28 [...] Fri Med ical ing tablet 08/05/20 at [facility] 4 mg 0930, Routine traZODone Yes 100mg QD Take [address] [facility] (DESYREL) 4-19 mg by [facility] MG 00:00: mouth Medical tablet 00 nightly. Center tiZANidine Yes 2mg Q.5D Take 2 [...] times Center daily. traZODone 2020-0 Yes 100mg Take 100 Uni vers 100 mg 4-05 mg by ity of tablet 13:30: mouth at [place] [address] bedtime. Medical Branch traZODone 2020-0 Yes 100mg Take 100 [facility] vers 100 mg 4-05 mg by ity of tablet 13:30: mouth at [place] [address] bedtime. Medical Branch traZODone 2020-0 Yes 100mg Take 100 Uni vers 100 mg 4-05 mg by ity of tablet 13:30: mouth at [place] [address] bedtime. Medical Branch [facility]cinolo 0 [facility] of acetonide 12:07: Sat07/18/[place] (KENALOG[place] 00 at 0707, Medica l injection Until Branch Discontinu ed, Routine, Intra-op iohexoL Yes PRN, Univers (OMNIPAQUE 4-05 Starting ity o f 300-50 mL)) 12:07: Sat07/18/20 [place] injection 00 at 0707, Medica l Until Branch Discontinu ed, Routine, Intra-op lidocaine 0 Yes PRN, Univers 1% 4-05 Starting ity of (XYLOCAINE) 12:07: Sat07/18/20 [place] 10 mg/mL (1 00 at 0707, Medi brandy %) Until Branch injection Discontinu ed, Routine, Intra-op triamcinolo 2020- No PRN, Unive ne 4-05 04-05 Starting ity of acetonide 12:07: 15:30 [facility] 07/18/20 [place] (KENALOG) 00 :22 [...] 07-1805 Starting ity of (XYLOCAINE) 12:07: 15:30 07/18/20 [place] 10 mg/mL (1 00 :22 at 0707, Medi brandy %) Until Sat Branch injection 07/18/20 at 1030, Routine, Intra-op [...] i ty of capsule 11:43: 00:00 (three) [place] 22 :00 times Medical daily. Branch lithium 2020- No 300mg Take 300 Univ ers carbonate -05 04-05 mg by ity of 300 mg 11:43: 00:00 mouth 2 [place] capsule 22 :00 (two) Medical times Branch daily. temazepam 2020- No 15mg Take 15 mg U nivers 15 mg 07-18 04-05 by mouth ity of capsule 11:43: [...] mouth ity of tablet 11:42: 00:00 daily. [place] 27 :00 Medical Branch carvediloL 2020-0 2020- No 12.5mg Take 12.5 [facility] 12.5 mg 4-05 04-05 mg by ity of tablet 11:42: 00:00 mouth 2 [place] 27 :00 (two) Medical times [place] daily with meals. traZODone Yes 100mg Take 100 Uni vers 100 mg 4-05 mg by ity of tablet 11:28: mouth at [place] 50 bedtime. Medical Branch losartan Yes 100mg 100 mg, Unive rs (COZAAR) - Oral, ity of tablet 100 14:00: DAILY, [place] mg 00 First dose Medical on Sat [place] 07/08/20 at 0900, Until Discontinu ed, Routine ondansetron 2020- No 4mg 4 mg, Slow [facility] (ZOFRAN 07-08 IV Push, ity of (PF)) 03:15: 02:29 ONCE, 1 [place] injection 4 00 :00 dose, [facility] Med ical mg 07/07/20 at Branch 2215, [place] morpHINE 2020- No 4mg 4 mg, Slow Un you injection 4 07-08 IV Push, ity of mg 03:15: 02:28 ONCE, 1 [place] 00 :00 dose, [facility] 07/07/20 at Branch 2215, STAT morpHINE 2020-0 2020- No 4mg 4 mg, Slow Un you injection 4 07-08 IV Push, ity of mg 01:45: 01:05 ONCE, 1 [place] 00 :00 dose, [facility] Medical 07/07/20 at Branch 2045, STAT iohexol 2020-0 2020- No [id number] 120mL 120 mL, Univers (OMNIPAQUE 07-08 Intravenou it y of 350 01:00: 00:55 s, ONCE, 1 [place] BULK-150 00 :00 dose, [facility] Medica l mL) 07/07/20 at [place] injection 2000, 120 mL Routine NaCl 0.9% 2020-2020- No 1000mL at 999 Uni vers (NS) bolus 07-08- mL/hr, ity of infusion 01:00: 02:24 1,000 mL, [place] 1,000 mL 00 :00 IV Medical Infusion, Branch ONCE, 1 dose, [place] 07/07/20 at 2000, STAT ondansetron 2020-0 2021- No 4mg 4 mg, Slow [facility] (ZOFRAN 3-26 03-26 IV Push, ity of (PF)) 01:00: 00:25 ONCE, 1 [place] injection 4 00 :00 dose, [place] Med ical mg 07/07/20 at Branch 2000, [place] ondansetron 2020-0 Yes [id number] 4mg Take 1 [facility] (ZOFRAN 3-25 tablet by ity of ODT) 4 mg 00:00: mouth [place] disintegrat 00 every 8 Medic al ing tablet (eight) Branch hours as needed for Nausea and Vomiting (N/V). ondansetron 2020-0 Yes [id number] 4mg Take 1 [facility] (ZOFRAN 3-25 tablet by ity of ODT) 4 mg 00:00: mouth [place] disintegrat 00 every 8 Medic al ing tablet (eight) Branch hours as needed for Nausea and Vomiting (N/V). ondansetron 2020-0 Yes [id number] 4mg Take 1 [facility] (ZOFRAN 3-25 tablet by ity of ODT) 4 mg 00:00: mouth [place] disintegrat 00 every 8 Medic al ing tablet (eight) Branch hours as needed for Nausea and Vomiting (N/V). ondansetron 1-0 Yes [id number] 4mg Take 1 [facility] (ZOFRAN 3-25 tablet by ity of ODT) 4 mg 00:00: mouth [place] disintegrat 00 every 8 Medic al ing tablet (eight) Branch hours as needed for Nausea and Vomiting (N/V). ondansetron 1-0 Yes [id number] 4mg Take 1 [facility] (ZOFRAN 3-25 tablet by ity of ODT) 4 mg 00:00: mouth [place] disintegrat 00 every 8 Medic al ing tablet (eight) Branch hours as needed for Nausea and Vomiting (N/V). ondansetron 1-0 Yes [id number] 4mg Take 1 [facility] (ZOFRAN 3-25 tablet by ity of ODT) 4 mg 00:00: mouth [place] disintegrat 00 every 8 Medic al ing tablet (eight) Branch hours as needed for Nausea and Vomiting (N/V). ondansetron 2021-0 Yes [id number] 4mg Take 1 [facility] (ZOFRAN 3-25 tablet by ity of ODT) 4 mg 00:00: mouth [place] disintegrat 00 every 8 Medic al ing tablet (eight) Branch hours as needed for Nausea and Vomiting (N/V). ondansetron 2020-0 Yes [id number] 4mg Take 1 [facility] (ZOFRAN 3-25 tablet by ity of ODT) 4 mg 00:00: mouth [place] disintegrat 00 every 8 Medic al ing tablet (eight) Branch hours as needed for Nausea and Vomiting (N/V). ondansetron 202-0 Yes [id number] 4mg Take 1 [facility] (ZOFRAN 3-25 tablet by ity of ODT) 4 mg 00:00: mouth [place] disintegrat 00 every 8 Medic al ing tablet (eight) Branch hours as needed for Nausea and Vomiting (N/V). ondansetron 2020-0 Yes [id number] 4mg Take 1 [facility] (ZOFRAN 3-25 tablet by ity of ODT) 4 mg 00:00: mouth [place] disintegrat 00 every 8 Medic al ing tablet (eight) Branch hours as needed for Nausea and Vomiting (N/V). ondansetron 2020-0 Yes [id number] 4mg Take 1 [facility] (ZOFRAN 3-25 tablet by ity of ODT) 4 mg 00:00: mouth [place] disintegrat 00 every 8 Medic al ing tablet (eight) Branch hours as needed for Nausea and Vomiting (N/V). ondansetron 2020-0 Yes [id number] 4mg Take 1 [facility] (ZOFRAN 3-25 tablet by ity of ODT) 4 mg 00:00: mouth [place] disintegrat 00 every 8 Medic al ing tablet (eight) Branch hours as needed for Nausea and Vomiting (N/V). ondansetron 1-0 Yes [id number] 4mg Take 1 [facility] (ZOFRAN 3-25 tablet by ity of ODT) 4 mg 00:00: mouth [place] disintegrat 00 every 8 Medic al ing tablet (eight) Branch hours as needed for Nausea and Vomiting (N/V). ondansetron 1-0 Yes [id number] 4mg Take 1 [facility] (ZOFRAN 3-25 tablet by ity of ODT) 4 mg 00:00: mouth [place] disintegrat 00 every 8 Medic al ing tablet (eight) Branch hours as needed for Nausea and Vomiting (N/V). ondansetron 2020-0 Yes [id number] 4mg Take 1 [facility] (ZOFRAN 3-25 tablet by ity of ODT) 4 mg 00:00: mouth [place] disintegrat 00 every 8 Medic al ing tablet (eight) Branch hours as needed for Nausea and Vomiting (N/V). ondansetron 2020-0 Yes [id number] 4mg Take 1 [facility] (ZOFRAN 3-25 tablet by ity of ODT) 4 mg 00:00: mouth [place] disintegrat 00 every 8 Medic al ing tablet (eight) Branch hours as needed for Nausea and Vomiting (N/V). ondansetron 2020-0 Yes [id number] 4mg Take 1 [facility] (ZOFRAN 3-25 tablet by ity of ODT) 4 mg 00:00: mouth [place] disintegrat 00 every 8 Medic al ing tablet (eight) Branch hours as needed for Nausea and Vomiting (N/V). ondansetron 2020-0 Yes [id number] 4mg Take 1 [facility] (ZOFRAN 3-25 tablet by ity of ODT) 4 mg 00:00: mouth [place] disintegrat 00 every 8 Medic al ing tablet (eight) Branch hours as needed for Nausea and Vomiting (N/V). ondansetron 2020-0 Yes [id number] 4mg Take 1 [facility] (ZOFRAN 3-25 tablet by ity of ODT) 4 mg 00:00: mouth [place] disintegrat 00 every 8 Medic al ing tablet (eight) Branch hours as needed for Nausea and Vomiting (N/V). ondansetron 2020-0 2020- No [id number] 4mg Take 1 [facility] (ZOFRAN 3-25 12-06 [...] tiZANidine Yes 4mg Take 4 mg Un oyu 4 mg 3-22 by mouth 2 ity [...] 3 it y of capsule 13:47: (three) [place] [address] times Medical daily. Branch meloxicam 2020-0 Yes 7.5mg Take 7.5 Uni vers 7.5 mg 3-22 mg by ity of tablet 13:47: mouth daily. Medical Branch lithium 2020-0 Yes 300mg Take 300 Unive rs carbonate 3-22 mg by ity of 300 mg 13:47: mouth 2 [place] [facility] 04 (two) Medical times Branch daily. temazepam 2020-0 Yes 15mg Take 15 mg Un you 15 mg 3-22 by mouth ity of capsule 13:47: at bedtime [place] 04 as needed Medical for Branch Insomnia. ursodioL 2020-0 Yes 500mg Take 500 Univ ers 500 mg 3-22 mg by ity of tablet 13:47: mouth 2 [place] (two) Medical times Branch daily. traZODone 2020-0 Yes 100mg Take 100 Uni vers 100 mg 3-22 mg by ity of tablet 13:47: mouth at [place] [address] bedtime. Medical Branch ARIPiprazol 2020-0 Yes 10mg Take 10 mg Univers e 10 mg 3-22 by mouth ity of tablet 13:47: daily. [place] Medical Branch carvediloL 2020-0 Yes 12.5mg Take 12.5 Univers 12.5 mg 3-22 mg by ity of tablet 13:47: mouth 2 [place] (two) Medical times [place] daily with meals. lactated 2020-0 Yes 1000mL [...] brandy 25 mcg 4 doses, Branch Starting 07/04/20 at 0810, Until Discontinu ed, Routine, Pain [...] ity of 1,000 mg in 12:00: Piggyback, [place] NaCl 0.9% 00 Q8H ABX, Medica l (NS) 50 mL First dose Bra [facility] MINI-BAG on Sat07/04/20 at 0700, Until Discontinu [...] 3 it y of capsule 16:25: (three) [place] 42 times Medical daily. Branch meloxicam Yes 7.5mg Take 7.5 Uni vers 7.5 mg 3-08 mg by ity of tablet 16:25: mouth [place] 42 daily. Medical Branch lithium Yes 300mg Take 300 Unive rs carbonate 3-08 mg by ity of 300 mg 16:25: mouth 2 [place] capsule 42 (two) Medical times Branch daily. temazepam Yes 15mg Take 15 mg Un you 15 mg 3-08 by mouth ity of capsule 16:25: at bedtime [place] 42 as needed Medical for Branch Insomnia. ursodioL Yes 500mg Take 500 Univ ers 500 mg 3-08 mg by ity of tablet 16:25: mouth 2 [place] 42 (two) Medical times Branch daily. ondansetron [...] 1% 3-08 Starting ity of (XYLOCAINE) 14:09: 06/20/21 [place] 10 mg/mL (1 00 at 0809, Medi brandy %) Until Branch injection Discontinu ed, Routine, Intra-op propofoL IV 2020- Intravenou Univers infusion 06-20 03-08 s, ONCE ity of 14:05: 14:12 INTRA [place] 00 :42 PROCEDURE, Medical Starting Branch 06/20/20 at 0805, Until Sat06/20/20 at 0812, Routine, Intra-op lactated 2020- No IV Univers ringers IV 06-20 03-08 Infusion, ity of infusion 14:03: 14:12 CONTINUOUS [place] 00 :42 PRN, Medical Starting Branch 06/20/20 at 0803, Until Sat06/20/20 at 0812, [...] [place] 33 times Medical daily. Branch chlordiazeP Yes 10mg Take 10 mg Univers OXIDE 10 mg 3-08 by mouth 3 it y of capsule 12:29: (three) [place] 33 times Medical daily. Branch meloxicam Yes 7.5mg Take 7.5 Uni vers 7.5 mg 3-08 mg by ity of tablet 12:29: mouth [place] 33 daily. Medical Branch lithium Yes 300mg Take 300 Unive rs carbonate 3-08 mg by ity of 300 mg 12:29: mouth 2 [place] capsule 33 (two) Medical times Branch daily. temazepam 0 Yes 15mg Take 15 mg Un you 15 mg 3-08 by mouth ity of capsule 12:29: at bedtime [place] 33 as needed Medical for Branch Insomnia. ursodioL Yes 500mg Take 500 Univ ers 500 mg 3-08 mg by ity of tablet 12:29: mouth 2 [place] 33 (two) Medical times Branch daily. LOSARTAN 0 [...] 56 (two) Medical times Branch daily. temazepam 202-0 Yes 15mg Take 15 mg Un [...] [place] 19 times Medical daily. Branch butalbital- 2021-0 2021- No 1{tbl} 1 tablet, Univers acetaminoph 05-07 [...] IV ity of (REGLAN) 22:45: 21:51 Push, [place] injection 00 :00 ONCE, 1 Medical 10 [...] dose, 05/06/20 at 1545, [place] butalbital- Yes [id number] 1{tbl} Take 1 [facility] acetaminoph 05-06 tablet by ity of en-caff 00:00: mouth [place] 50-325-40 00 every 6 Medical mg tablet (six) Branch hours as needed for Pain (scale 7-10) or Other (headache) . butalbital- Yes [id number] 1{tbl} Take 1 [facility] acetaminoph 1-22 tablet by ity of en-caff 00:00: mouth [place] 50-325-40 00 every 6 Medical mg tablet (six) Branch hours as needed for Pain (scale 7-10) or Other (headache) . butalbital- Yes [id number] 1{tbl} Take 1 [facility] acetaminoph 1-22 tablet by ity of en-caff 00:00: mouth [place] 50-325-40 00 every 6 Medical mg tablet (six) Branch hours as needed for Pain (scale 7-10) or Other (headache) . butalbital- Yes [id number] 1{tbl} Take 1 [facility] acetaminoph 1-22 tablet by ity of en-caff 00:00: mouth [place] 50-325-40 00 every 6 Medical mg tablet (six) Branch hours as needed for Pain (scale 7-10) or Other (headache) . butalbital- Yes [id number] 1{tbl} Take 1 [facility] acetaminoph 1-22 tablet by ity of en-caff 00:00: mouth [place] 50-325-40 00 every 6 Medical mg tablet (six) Branch hours as needed for Pain (scale 7-10) or Other (headache) . butalbital- Yes [id number] 1{tbl} Take 1 [facility] acetaminoph 1-22 tablet by ity of en-caff 00:00: mouth [place] 50-325-40 00 every 6 Medical mg tablet (six) Branch hours as needed for Pain (scale 7-10) or Other (headache) . butalbital- Yes [id number] 1{tbl} Take 1 [facility] acetaminoph 1-22 tablet by ity of en-caff 00:00: mouth [place] 50-325-40 00 every 6 Medical mg tablet (six) Branch hours as needed for Pain (scale 7-10) or Other (headache) . butalbital- Yes [id number] 1{tbl} Take 1 [facility] acetaminoph 1-22 tablet by ity of en-caff 00:00: mouth [place] 50-325-40 00 every 6 Medical mg tablet (six) Branch hours as needed for Pain (scale 7-10) or Other (headache) . butalbital- Yes [id number] 1{tbl} Take 1 [facility] acetaminoph 1-22 tablet by ity of en-caff 00:00: mouth [place] 50-325-40 00 every 6 Medical mg tablet (six) Branch hours as needed for Pain (scale 7-10) or Other (headache) . butalbital- Yes [id number] 1{tbl} Take 1 [facility] acetaminoph 1-22 tablet by ity of en-caff 00:00: mouth [place] 50-325-40 00 every 6 Medical mg tablet (six) Branch hours as needed for Pain (scale 7-10) or Other (headache) . butalbital- Yes [id number] 1{tbl} Take 1 [facility] acetaminoph 1-22 tablet by ity of en-caff 00:00: mouth [place] 50-325-40 00 every 6 Medical mg tablet (six) Branch hours as needed for Pain (scale 7-10) or Other (headache) . butalbital- Yes [id number] 1{tbl} Take 1 [facility] acetaminoph 1-22 tablet by ity of en-caff 00:00: mouth [place] 50-325-40 00 every 6 Medical mg tablet (six) Branch hours as needed for Pain (scale 7-10) or Other (headache) . butalbital- Yes [id number] 1{tbl} Take 1 [facility] acetaminoph 1-22 tablet by ity of en-caff 00:00: mouth [place] 50-325-40 00 every 6 Medical mg tablet (six) Branch hours as needed for Pain (scale 7-10) or Other (headache) . butalbital- 2020-0 No [id number] 1{tbl} Take 1 [facility] acetaminoph 1-22 04-05 tablet by it y of en-caff 00:00: 00:00 mouth [place] 50-325-40 00 :00 every 6 Medical mg tablet (six) Branch hours as needed for Pain (scale 7-10) or Other (headache) . butalbital- 0 2020- No [id number] 1{tbl} Take 1 Univers acetaminoph 05-06 04-05 [...] of 350 06:15: 06:07 s, ONCE, 1 [place] BULK-100 00 :00 dose, Sat Medica l mL) 03/26/20 Branch injection at 0015, 120 mL Routine morpHINE 2019-04- No 4mg 4 mg, Slow Un you injection 4 05-27 IV Push, ity of mg 06:15: 05:09 ONCE, 1 [place] 00 :00 dose, Sat Medical 03/26/20 Branch [...] mg 03/25/20 Branch at 2245, [place] morpHINE 2019- 2020- No 4mg 4 mg, Slow Un you injection 4 2-12 1212 IV Push, ity of mg 04:45: 03:40 [...] 7-10). Indication s: acute pain traMADoL 2019-04 4647 50mg Take 1 Univer s (ULTRAM) 50 2-12 04-05 tablet by it y of mg tablet 00:00: 00:00 mouth [place] 00 :00 every 6 Medical (six) Branch hours as needed for Pain (scale 7-10). Indication s: acute pain traMADoL 2019-04 4647 50mg Take 1 Univer s (ULTRAM) 50 2-12 04-05 tablet by it y of mg tablet 00:00: 00:00 mouth [place] 00 :00 every 6 Medical (six) Branch hours as needed for Pain (scale 7-10). Indication s: acute pain erythromyci 2019-04 No [id number] .5[in_u Place 0.5 Univers n 5 mg/gram 05-27 700024 s] Inches in ity of (0.5 %) [...] as needed Medical for Branch Insomnia. ursodioL 2019- Yes 500mg Take 500 Univ ers 500 mg 0-26 mg by ity of tablet 21:14: mouth 2 [place] 10 (two) Medical times Branch daily. divalproex 2019- Yes 500mg Take 500 Un [...] 1 [place] mg 00 :00 dose, [facility] 02/08/20 Branch at 0845, Routine amLODIPine 2019-04 Yes [id number] 10mg Take 1 Univers 10 mg 0-26 tablet by ity of tablet 00:00: mouth [place] 00 daily. Medical Branch hydrALAZINE 2019- Yes [id number] 50mg Take 1 [facility] 50 mg 0-26 tablet by ity of tablet 00:00: mouth [place] 00 every 8 Medical (eight) Branch hours. aspirin 81 2019- Yes [id number] 81mg Take 1 [facility] mg chewable 0-26 tablet by ity of tablet 00:00: mouth [place] 00 daily. Medical Branch amLODIPine 2019- Yes [id number] 10mg Take 1 [facility] 10 mg 0-26 tablet by ity of tablet 00:00: mouth [place] 00 daily. Medical Branch hydrALAZINE 2019- Yes [id number] 50mg Take 1 [facility] 50 mg 0-26 tablet by ity of tablet 00:00: mouth [place] 00 every 8 Medical (eight) Branch hours. aspirin 81 2019- Yes [id number] 81mg Take 1 Univers mg chewable 0-26 tablet by ity of tablet 00:00: mouth [place] 00 daily. Medical Branch amLODIPine 2019- Yes [id number] 10mg Take 1 [facility] 10 mg 0-26 tablet by ity of tablet 00:00: mouth [place] 00 daily. Medical Branch hydrALAZINE 2019-04 Yes [id number] 50mg Take 1 [facility] 50 mg 0-26 tablet by ity of tablet 00:00: mouth [place] 00 every 8 Medical (eight) Branch hours. aspirin 81 2019-04 Yes [id number] 81mg Take 1 [facility] mg chewable 0-26 tablet by ity of tablet 00:00: mouth [place] 00 daily. Medical Branch amLODIPine 2019-04 Yes [id number] 10mg Take 1 [facility] 10 mg 0-26 tablet by ity of tablet 00:00: mouth [place] 00 daily. Medical Branch hydrALAZINE 2019-04 Yes [id number] 50mg Take 1 [facility] 50 mg 0-26 tablet by ity of tablet 00:00: mouth [place] 00 every 8 Medical (eight) Branch hours. aspirin 81 2019-04 Yes [id number] 81mg Take 1 [facility] mg chewable 0-26 tablet by ity of tablet 00:00: mouth [place] 00 daily. Medical Branch amLODIPine 2019-04 Yes [id number] 10mg Take 1 [facility] 10 mg 0-26 tablet by ity of tablet 00:00: mouth [place] 00 daily. Medical Branch hydrALAZINE 2019-04 Yes [id number] 50mg Take 1 [facility] 50 mg 0-26 tablet by ity of tablet 00:00: mouth [place] 00 every 8 Medical (eight) Branch hours. aspirin 81 2019-04 Yes [id number] 81mg Take 1 [facility] mg chewable 0-26 tablet by ity of tablet 00:00: mouth [place] 00 daily. Medical Branch amLODIPine 2019-04 Yes [id number] 10mg Take 1 [facility] 10 mg 0-26 tablet by ity of tablet 00:00: mouth [place] 00 daily. Medical Branch hydrALAZINE 2019- Yes [id number] 50mg Take 1 [facility] 50 mg 0-26 tablet by ity of tablet 00:00: mouth [place] 00 every 8 Medical (eight) Branch hours. aspirin 81 2019- Yes [id number] 81mg Take 1 [facility] mg chewable 0-26 tablet by ity of tablet 00:00: mouth [place] 00 daily. Medical Branch amLODIPine 2019- Yes [id number] 10mg Take 1 [facility] 10 mg 0-26 tablet by ity of tablet 00:00: mouth [place] 00 daily. Medical Branch hydrALAZINE 2019- Yes [id number] 50mg Take 1 [facility] 50 mg 0-26 tablet by ity of tablet 00:00: mouth [place] 00 every 8 Medical (eight) Branch hours. aspirin 81 2019-04 Yes [id number] 81mg Take 1 [facility] mg chewable 0-26 tablet by ity of tablet 00:00: mouth [place] 00 daily. Medical Branch amLODIPine 2019-04 Yes [id number] 10mg Take 1 [facility] 10 mg 0-26 tablet by ity of tablet 00:00: mouth [place] 00 daily. Medical Branch hydrALAZINE 2019-04 Yes [id number] 50mg Take 1 [facility] 50 mg 0-26 tablet by ity of tablet 00:00: mouth [place] 00 every 8 Medical (eight) Branch hours. aspirin 81 2019-04 Yes [id number] 81mg Take 1 [facility] mg chewable 0-26 tablet by ity of tablet 00:00: mouth [place] 00 daily. Medical Branch amLODIPine 2019-04 Yes [id number] 10mg Take 1 [facility] 10 mg 0-26 tablet by ity of tablet 00:00: mouth [place] 00 daily. Medical Branch hydrALAZINE 2019- Yes [id number] 50mg Take 1 [facility] 50 mg 0-26 tablet by ity of tablet 00:00: mouth [place] 00 every 8 Medical (eight) Branch hours. aspirin 81 2019-1 Yes [id number] 81mg Take 1 [facility] mg chewable 0-26 tablet by ity of tablet 00:00: mouth [place] 00 daily. Medical Branch amLODIPine 2019- Yes [id number] 10mg Take 1 [facility] 10 mg 0-26 tablet by ity of tablet 00:00: mouth [place] 00 daily. Medical Branch hydrALAZINE 2019- Yes [id number] 50mg Take 1 [facility] 50 mg 0-26 tablet by ity of tablet 00:00: mouth [place] 00 every 8 Medical (eight) Branch hours. aspirin 81 2019- Yes [id number] 81mg Take 1 [facility] mg chewable 0-26 tablet by ity of tablet 00:00: mouth [place] 00 daily. Medical Branch amLODIPine 2019- Yes [id number] 10mg Take 1 [facility] 10 mg 0-26 tablet by ity of tablet 00:00: mouth [place] 00 daily. Medical Branch hydrALAZINE 2019- Yes [id number] 50mg Take 1 [facility] 50 mg 0-26 tablet by ity of tablet 00:00: mouth [place] 00 every 8 Medical (eight) Branch hours. aspirin 81 2019- Yes [id number] 81mg Take 1 [facility] mg chewable 0-26 tablet by ity of tablet 00:00: mouth [place] 00 daily. Medical Branch amLODIPine 2019-04 Yes [id number] 10mg Take 1 [facility] 10 mg 0-26 tablet by ity of tablet 00:00: mouth [place] 00 daily. Medical Branch hydrALAZINE 2019- Yes [id number] 50mg Take 1 [facility] 50 mg 0-26 tablet by ity of tablet 00:00: mouth [place] 00 every 8 Medical (eight) Branch hours. aspirin 81 2019-04 Yes [id number] 81mg Take 1 [facility] mg chewable 0-26 tablet by ity of tablet 00:00: mouth [place] 00 daily. Medical Branch amLODIPine 2019-04 Yes [id number] 10mg Take 1 [facility] 10 mg 0-26 tablet by ity of tablet 00:00: mouth [place] 00 daily. Medical Branch hydrALAZINE 2019- Yes [id number] 50mg Take 1 Univers 50 mg 0-26 tablet by ity of tablet 00:00: mouth [place] 00 every 8 Medical (eight) Branch hours. aspirin 81 2019- Yes [id number] 81mg Take 1 [facility] mg chewable 0-26 tablet by ity of tablet 00:00: mouth [place] 00 daily. Medical Branch amLODIPine 2019- Yes [id number] 10mg Take 1 [facility] 10 mg 0-26 tablet by ity of tablet 00:00: mouth [place] 00 daily. Medical Branch hydrALAZINE 2019- Yes [id number] 50mg Take 1 [facility] 50 mg 0-26 tablet by ity of tablet 00:00: mouth [place] 00 every 8 Medical (eight) Branch hours. aspirin 81 2019- Yes [id number] 81mg Take 1 [facility] mg chewable 0-26 tablet by ity of tablet 00:00: mouth [place] 00 daily. Medical Branch amLODIPine 2019- Yes [id number] 10mg Take 1 [facility] 10 mg 0-26 tablet by ity of tablet 00:00: mouth [place] 00 daily. Medical Branch hydrALAZINE 2019- Yes [id number] 50mg Take 1 [facility] 50 mg 0-26 tablet by ity of tablet 00:00: mouth [place] 00 every 8 Medical (eight) Branch hours. aspirin 81 2019-04 Yes [id number] 81mg Take 1 [facility] mg chewable 0-26 tablet by ity of tablet 00:00: mouth [place] 00 daily. Medical Branch amLODIPine 2019-04 Yes [id number] 10mg Take 1 [facility] 10 mg 0-26 tablet by ity of tablet 00:00: mouth [place] 00 daily. Medical Branch hydrALAZINE 2019-04 Yes [id number] 50mg Take 1 [facility] 50 mg 0-26 tablet by ity of tablet 00:00: mouth [place] 00 every 8 Medical (eight) Branch hours. aspirin 81 2019-04 Yes [id number] 81mg Take 1 [facility] mg chewable 0-26 tablet by ity of tablet 00:00: mouth [place] 00 daily. Medical Branch amLODIPine 2019-04 Yes [id number] 10mg Take 1 [facility] 10 mg 0-26 tablet by ity of tablet 00:00: mouth [place] 00 daily. Medical Branch hydrALAZINE 2019-04 Yes [id number] 50mg Take 1 [facility] 50 mg 0-26 tablet by ity of tablet 00:00: mouth [place] 00 every 8 Medical (eight) Branch hours. aspirin 81 2019-04 Yes [id number] 81mg Take 1 [facility] mg chewable 0-26 tablet by ity of tablet 00:00: mouth [place] 00 daily. Medical Branch amLODIPine 2019-04 Yes [id number] 10mg Take 1 [facility] 10 mg 0-26 tablet by ity of tablet 00:00: mouth [place] 00 daily. Medical Branch hydrALAZINE 2019-04 Yes [id number] 50mg Take 1 [facility] 50 mg 0-26 tablet by ity of tablet 00:00: mouth [place] 00 every 8 Medical (eight) Branch hours. aspirin 81 2019-04 Yes [id number] 81mg Take 1 [facility] mg chewable 0-26 tablet by ity of tablet 00:00: mouth [place] 00 daily. Medical Branch amLODIPine 2019-04- No [id number] 10mg Take 1 [facility] 10 mg 0-26 04-05 tablet by ity of tablet 00:00: 00:00 mouth [place] 00 :00 daily. Medical Branch hydrALAZINE 2019-04- No [id number] 50mg Take 1 Univers 50 mg 0-26 04-05 tablet by ity of tablet 00:00: 00:00 mouth [place] 00 :00 every 8 Medical (eight) Branch hours. aspirin 81 2019-04- No [id number] 81mg Take 1 Univers mg chewable 0-26 04-05 tablet by it y of tablet 00:00: 00:00 mouth [place] 00 :00 daily. Medical Branch amLODIPine 2019-04- No [id number] 10mg Take 1 Univers 10 mg 0-26 04-05 tablet by ity of tablet 00:00: 00:00 mouth [place] 00 :00 daily. Medical Branch hydrALAZINE 2019-04- No [id number] 50mg Take 1 [facility] 50 mg 0-26 04-05 tablet by ity of tablet 00:00: 00:00 mouth [place] 00 :00 every 8 Medical (eight) Branch hours. aspirin 81 2019-04- No [id number] 81mg Take 1 Univers mg chewable 0-26 [...] at 0915, Until Discontinu ed, Routine hydrALAZINE 2019-04 No 10mg 10 mg, Uni vers (APRESOLINE [...] [place] mg 00 :00 dose, [facility] 02/05/20 Branch at 1200, Routine lipase-prot [...] ONCE, 1 [place] 00 :00 dose, [facility] 02/04/20 Branch at 1730, Routine ondansetron 2019-04 Yes 4mg 4 mg, Unive rs (ZOFRAN) 0- Oral, ity of tablet 4 mg 21:25: Q6HPRN, [place] 39 Starting Medical [facility] Branch 02/04/20 at 1625, Until Discontinu ed, Routine, Nausea and Vomiting (N/V) ondansetron 2019-04- No 4mg 4 mg, Slow Univers (ZOFRAN 0-03 02- IV Push, ity of (PF)) 15:15: 21:26 Q8HPRN, [place] injection 4 54 :52 Starting Medi brandy mg [facility] Branch 02/04/20 at 1015, Until [facility] 02/04/20 at 1626, Routine, Nausea and Vomiting (N/V) LORazepam 2019-04- No 1mg 1 mg, Univer s (ATIVAN) 0- 10- Oral, ity of tablet 1 mg 14:30: 23:16 ONCE, 1 [place] 00 :00 dose, [facility] 02/04/20 Branch at 0930, Routine enoxaparin 2019-04 Yes 40mg 40 mg, Unive rs (LOVENOX) 0-22 Subcutaneo ity of injection 14:00: us, DAILY, [place] 40 mg 00 First dose Medical on [place] Branch 02/04/20 at 0900, Until Discontinu ed, Routine divalproex 2019-04 Yes 500mg 500 mg, Uni vers (DEPAKOTE) 0-22 Oral, ity of EC tablet 14:00: DAILY, [place] 500 mg 00 First dose Medical on [place] Branch 02/04/20 at 0900, Until Discontinu ed, Routine pantoprazol 2019-04 Yes 40mg 40 mg, Univ ers e 0-22 Oral, BID, ity of (PROTONIX) 13:00: First dose [place] EC tablet 00 on [place] Medical 40 mg 02/04/20 Branch at 0800, Until Discontinu ed, Routine lactulose 2019-04 Yes 15mL 15 mL, Univer s (CEPHULAC) 0-22 Oral, BID, ity of solution 15 13:00: First dose [place] mL 00 (after Medical last Branch modificati on) on [place] 02/04/20 at 0800, Until Discontinu ed, Routine traMADoL 2019-04 Yes 50mg 50 mg, Univers (ULTRAM) 0-22 Oral, ity of tablet 50 03:22: Q8HPRN, [place] mg 09 Starting Medical [facility] Branch 02/03/20 at 2222, Until Discontinu ed, Routine, Pain (scale 4-6) lactated 2019-04 2020- No 1000mL at 100 Univ ers ringers IV 0-22 10-25 mL/hr, ity of infusion 02:15: 23:20 1,000 mL, [place] 1,000 mL 00 :45 IV Medical Infusion, Branch CONTINUOUS , Starting Sat02/03/20 at 2115, Until Sat02/07/20 at 1820, Routine docusate 2019-04 Yes 100mg 100 mg, Unive rs (COLACE) 0-22 Oral, ity of capsule 100 02:01: BIDPRN, [place] mg 06 Starting Medical [facility] Branch 02/03/20 at 2101, Until Discontinu ed, Routine, Constipati on acetaminoph 2019-04 Yes 650mg 650 mg, Un you en 0-22 Oral, ity of (TYLENOL) 01:58: Q8HPRN, [place] tablet 650 47 Starting Medic al mg Wed Branch 02/03/20 at 2058, Until Discontinu ed, Routine, Pain (scale 1-3) ondansetron 2019-04- No 4mg 4 mg, Univ ers (ZOFRAN) 02-03 Oral, ity of tablet 4 mg 01:52: 21:19 Q8HPRN, [place] 29 :27 Starting Medical [facility] 02/03/20 at 2052, Until [place] 02/04/20 at 1619, Routine, Nausea and Vomiting (N/V) sennosides 2019-04 Yes 8.6mg 8.6 mg, Uni vers (SENOKOT) Oral, ity of tablet 8.6 16:30: DAILY, [place] mg 00 First dose Medical on [facility] 02/03/20 at 1130, Until Discontinu ed, Routine magnesium 2019-04 Yes 400mg 400 mg, Univ ers oxide Oral, ity of (MAG-OX 16:30: DAILY, [place] 400) tablet 00 First dose Me dical 400 mg on [facility] 02/03/20 at 1130, Until Discontinu ed, Routine docusate 2019-04- No 100mg 100 mg, Univ ers (COLACE) 02-03 Oral, ity of capsule 100 16:30: 02:14 DAILY, [place] mg 00 :35 First dose Medical on [facility] 02/03/20 at 1130, Until Discontinu ed, Routine lactulose 2019-04- No 15mL 15 mL, Unive rs (CEPHULAC) 02-02 Oral, QID, it y of solution 15 03:30: 21:01 First dose [place] mL 00 :02 on [facility] 02/02/20 Branch at 2230, Until Discontinu ed, Routine amLODIPine 2019-04 Yes 10mg 10 mg, Unive rs (NORVASC) 0-20 Oral, ity of tablet 10 22:30: DAILY, [place] mg 00 First dose Medical on [facility] 02/02/20 at 1730, Until Discontinu ed, Routine labetaloL 2019-04 Yes 10mg 10 mg, Univer s (NORMODYNE) 0-20 Slow IV ity o f injection 22:18: Push, [place] 10 mg 17 Q4HPRN, Medical Starting Branch [facility] 02/02/20 at 1718, Until Discontinu ed, Routine, [...] 00 First dose Medical on Sat Branch 02/02/20 at 1415, Until Discontinu ed, Routine lipase-prot 2019-04 2020- No 1{capsu 1 capsule, Univers ease-amylas 0-20 10-23 le} Oral, TID it y of e 19:15: 13:49 MEALS, [place] (PANCREAZE) 00 :19 First dose Me dical 16,800-56,8 on [facility] Branch 00- 98,400 02/02/20 unit at 1415, [...] 1 [place] mg 00 :00 dose, [facility] 02/02/20 Branch at 0100, Routine D5W 0.45% [...] 10 mg 41 Q4HPRN, Medical Starting Branch Sat02/01/20 at 1545, Until Discontinu ed, STAT, SBP > 180, DBP > 120
Ind ication: Hypertensi ve Emergency NaCl 0.45% 2019-04- No 1000mL at 150 Un you (1/2NS) IV 0- 10-20 mL/hr, ity of infusion 18:45: 06:44 1,000 mL, [place] 1,000 mL 00 :00 IV Medical Infusion, Branch ONCE, 1 dose, Sat02/01/20 at 1345, Routine cyanocobala 2019-04- No 1000ug [...] mg 00 :34 First dose Medical on [facility] 02/01/20 at 0900, Until Discontinu ed, Routine NaCl 0.9% 2019-04- No 2000mL at 125 Uni vers (NS) IV 0-19 10-19 mL/hr, IV ity of infusion 03:30: 03:17 Infusion, [place] 2,000 mL 00 :00 ONCE, 1 Medical dose, [facility] 01/31/20 at 2230, Routine thiamine 2019-04- No 100mg IV Univers (VITAMIN 0-01-31 Piggyback, ity of B1) 100 mg 22:30: 14:59 DAILY, 2 [place] in NaCl 00 :00 doses, Medical 0.9% (NS) First dose Bran ch piggyback on [place] 01/31/20 at 1730, Last dose on [facility] 02/01/20 at 0900, 50 mL lactated 2019-04- No 1000mL at 125 [facility] [place] ers ringers IV 0-18 10-19 mL/hr, ity of infusion 22:30: 02:29 1,000 mL, [place] 1,000 mL 00 :41 IV Medical Infusion, Branch CONTINUOUS , Starting [place] 01/31/20 at 1730, Until [place] 01/31/20 at 2129, Routine NaCl 0.9% 2019-04- No 30mL/kg at 999 Un you (NS) bolus 0-18 10-18 mL/hr, ity of infusion 15:45: 16:04 2,730 mL [place] 2,730 mL 00 :00 (30 mL/kg Medica l ?91 kg), Branch IV Infusion, ONCE, 1 dose, [place] 01/31/20 at 1045, [place] Sucralfate Sucralfate 2019-0 No 1{table Sucralfate 1 GM 1 GM 9-23 t_on_an 1 GM 00:00: _empty_ 00 stomach } Sucralfate Sucralfate 2019-0 No 1{table Sucralfate 1 GM 1 GM 9-23 t_on_an 1 GM 00:00: _empty_ 00 stomach } Sucralfate Sucralfate 2019-0 No 1{table Sucralfate 1 GM 1 GM 01-05 t_on_an 1 GM 00:00: _empty_ 00 stomach } haloperidol 2019- 2020- No 2.5mg 2.5 mg, U nivers [...] Fri Branch 12/18/19 at 1845, Routine iohexol 2019-2019- No 120mL 120 mL, Unive rs (OMNIPAQUE 12-17 Intravenou it y of 350 22:01: 22:02 s, ONCE, 1 [place] BULK-100 00 :00 dose, Fri Medica l mL) 12/18/19 at Branch injection 1715, 120 mL Routine proMETHazin 2019-2019- No 25mg 25 mg, IV Univers e 12-17 Piggyback, ity of (PHENERGAN) 21:30: 20:40 [place]CE, 1 [place] 25 mg in 00 :00 dose, Fri Medica l NaCl 0.9% 12/18/19 at Branc h (NS) 50 mL 1630, 50 piggyback mL proMETHazin 2019-0 Yes [id number] 25mg Insert 1 [facility] e 12-17 Suppositor ity of (PHENERGAN) 00:[place] 25 [place] 00 rectum Medical suppository every 4 Branc h (four) hours as needed for Nausea and Vomiting (N/V). proMETHazin 2020-0 Yes [id number] 25mg Insert 1 [facility] e 12-17 Suppositor ity of (PHENERGAN) 00:00: [place] 25 mg 00 rectum Medical suppository every 4 Branc h (four) hours as needed for Nausea and Vomiting (N/V). proMETHazin 2020-0 Yes [id number] 25mg Insert 1 [facility] e 9-04 Suppositor ity of (PHENERGAN) 00:00: [place] mg 00 rectum Medical suppository every 4 Branc h (four) hours as needed for Nausea and Vomiting (N/V). proMETHazin 2020-0 Yes [id number] 25mg Insert 1 [facility] e 9-04 Suppositor ity of (PHENERGAN) 00:00: [place] mg 00 rectum Medical suppository every 4 Branc h (four) hours as needed for Nausea and Vomiting (N/V). proMETHazin 2020-0 Yes [id number] 25mg Insert 1 [facility] e 9-04 Suppositor ity of (PHENERGAN) 00:00: y [place] 25 mg 00 rectum Medical suppository every 4 Branc h (four) hours as needed for Nausea and Vomiting (N/V). proMETHazin 2020-0 Yes [id number] 25mg Insert 1 [facility] e 9-04 Suppositor ity of (PHENERGAN) 00:00: [place] mg 00 rectum Medical suppository every 4 Branc h (four) hours as needed for Nausea and Vomiting (N/V). proMETHazin 2020-0 Yes [id number] 25mg Insert 1 [facility] e 9-04 Suppositor ity of (PHENERGAN) 00:00: [place] mg 00 rectum Medical suppository every 4 Branc h (four) hours as needed for Nausea and Vomiting (N/V). proMETHazin 2020-0 Yes [id number] 25mg Insert 1 [facility] e 9-04 Suppositor ity of (PHENERGAN) 00:00: y [place] mg 00 rectum Medical suppository every 4 Branc h (four) hours as needed for Nausea and Vomiting (N/V). proMETHazin 2020-0 Yes [id number] 25mg Insert 1 [facility] e 9-04 Suppositor ity of (PHENERGAN) 00:00: y [place] mg 00 rectum Medical suppository every 4 Branc h (four) hours as needed for Nausea and Vomiting (N/V). proMETHazin 2020-0 Yes [id number] 25mg Insert 1 [facility] e 9-04 Suppositor ity of (PHENERGAN) 00:00: y [place] 25 mg 00 rectum Medical suppository every 4 Branc h (four) hours as needed for Nausea and Vomiting (N/V). proMETHazin 2020-0 Yes [id number] 25mg Insert 1 [facility] e 9-04 Suppositor ity of (PHENERGAN) 00:00: y [place] 25 mg 00 rectum Medical suppository every 4 Branc h (four) hours as needed for Nausea and Vomiting (N/V). proMETHazin 2020-0 Yes [id number] 25mg Insert 1 [facility] e 9-04 Suppositor ity of (PHENERGAN) 00:00: y into [place] 25 mg 00 rectum Medical suppository every 4 Branc h (four) hours as needed for Nausea and Vomiting (N/V). proMETHazin 2020-0 Yes [id number] 25mg Insert 1 [facility] e 9-04 Suppositor ity of (PHENERGAN) 00:00: y into [place] 25 mg 00 rectum Medical suppository every 4 Branc h (four) hours as needed for Nausea and Vomiting (N/V). proMETHazin 2020-0 Yes [id number] 25mg Insert 1 [facility] e 9-04 Suppositor ity of (PHENERGAN) 00:00: y [place] 25 mg 00 rectum Medical suppository every 4 Branc h (four) hours as needed for Nausea and Vomiting (N/V). proMETHazin 2020-0 Yes [id number] 25mg Insert 1 [facility] e 9-04 Suppositor ity of (PHENERGAN) 00:00: y into [place] 25 mg 00 rectum Medical suppository every 4 Branc h (four) hours as needed for Nausea and Vomiting (N/V). proMETHazin 2020-0 Yes [id number] 25mg Insert 1 [facility] e 9-04 Suppositor ity of (PHENERGAN) 00:00: y into [place] 25 mg 00 rectum Medical suppository every 4 Branc h (four) hours as needed for Nausea and Vomiting (N/V). proMETHazin 2020-0 Yes [id number] 25mg Insert 1 [facility] e 9-04 Suppositor ity of (PHENERGAN) 00:00: y into [place] 25 mg 00 rectum Medical suppository every 4 Branc h (four) hours as needed for Nausea and Vomiting (N/V). proMETHazin 2020-0 Yes [id number] 25mg Insert 1 [facility] e 9 Suppositor ity of (PHENERGAN) 00:00: y into [place] 25 mg 00 rectum Medical suppository every 4 Branc h (four) hours as needed for Nausea and Vomiting (N/V). proMETHazin 2020-0 Yes [id number] 25mg Insert 1 [facility] e 9 Suppositor ity of (PHENERGAN) 00:00: y into [place] 25 mg 00 rectum Medical suppository every 4 Branc h (four) hours as needed for Nausea and Vomiting (N/V). proMETHazin 2019-0 2020- No [id number] 25mg Insert 1 [facility] e 12-17-05 Suppositor ity of (PHENERGAN) 00:00: 00:00 y into [place] 25 mg 00 :00 rectum Medical suppository every 4 Branc h (four) hours as needed for Nausea and Vomiting (N/V). proMETHazin 2019-0 2020- No [id number] 25mg Insert 1 [facility] e 12-17-05 Suppositor ity of (PHENERGAN) 00:00: 00:00 y into [place] 25 mg 00 :00 rectum Medical suppository every 4 Branc h (four) hours as needed for Nausea and Vomiting (N/V). Chlorhexidi Chlorhexidi 2019- 2020- No [place] 15 ML Common ne ne 6-23 06-30 [facility] Gluconate Gluconate 00:00: 00:00 spit - CHI 00 :00 [facility] cloNIDine 2019-2019- No .2mg 0.2 mg, Univ ers (CATAPRES) 08-21 05-09 Oral, ity of tablet 0.2 05:00: 04:00 ONCE, 1 [place] mg 00 :00 dose, Sat Medical 08/22/19 at Branch 0000, STAT ondansetron 2019-2019- No 4mg 4 mg, Slow Univers (ZOFRAN 08-21-09 IV Push, ity of (PF)) 04:15: 03:15 [...] No 200mg 200 mg, U nivers (TESSALON 08-21- Oral, ONCE ity of PERLES) 04:15: 03:15 NOW, 1 [place] capsule 200 00 :00 dose, Sat Med ical mg 08/21/19 at Branch 2315, Routine Nitrofurant 2019-0 Yes [id number] 100mg Take 1 [facility] oin&Nit. 5-08 capsule by ity o f Macrocryst 00:00: mouth 2 [place] (MACROBID) 00 (two) Medical 100 mg times Branch capsule daily. benzonatate 2020-0 Yes [id number] 200mg Take 1 [facility] 200 mg 5-08 capsule by ity of capsule 00:00: mouth 3 00 (three) Medical times Branch daily as needed for Cough. ondansetron 2020-0 Yes [id number] 4mg Take 1 [facility] (ZOFRAN) 4 5-08 tablet by ity of mg tablet 00:00: mouth 00 every 8 Medical (eight) Branch hours as needed for Nausea and Vomiting (N/V). traMADol 2020-0 Yes [id number] 50mg Take 1 Uni vers (ULTRAM) 50 5-08 tablet by ity of mg tablet 00:00: mouth [place] 00 every 6 Medical (six) Branch hours as needed for Pain (scale 7-10). albuterol 2020-0 Yes [id number] 2{puff} Inhale 2 [facility] 90 5-08 Puffs ity of mcg/actuati 00:00: every 4 [place] inhaler 00 (four) Medical hours as Branch needed for Wheezing, Shortness of Breath, Bronchospa sm or Chest tightness. benzonatate 2020-0 Yes [id number] 200mg Take 1 [facility] 200 mg 5-08 capsule by ity of capsule 00:00: mouth 3 00 (three) Medical times Branch daily as needed for Cough. ondansetron 2020-0 Yes [id number] 4mg Take 1 Univers (ZOFRAN) 4 5-08 tablet by ity of mg tablet 00:00: mouth [place] 00 every 8 Medical (eight) Branch hours as needed for Nausea and Vomiting (N/V). traMADol 2020-0 Yes [id number] 50mg Take 1 Uni vers (ULTRAM) 50 5-08 tablet by ity of mg tablet 00:00: mouth [place] 00 every 6 Medical (six) Branch hours as needed for Pain (scale 7-10). albuterol 2020-0 Yes [id number] 2{puff} Inhale 2 [facility] 90 5-08 Puffs ity of mcg/actuati 00:00: every 4 [place] inhaler 00 (four) Medical hours as Branch needed for Wheezing, Shortness of Breath, Bronchospa sm or Chest tightness. benzonatate 2020-0 Yes [id number] 200mg Take 1 [facility] 200 mg 5-08 capsule by ity of capsule 00:00: mouth 3 [place] 00 (three) Medical times Branch daily as needed for Cough. ondansetron 2020-0 Yes [id number] 4mg Take 1 Univers (ZOFRAN) 4 5-08 tablet by ity of mg tablet 00:00: mouth [place] 00 every 8 Medical (eight) Branch hours as needed for Nausea and Vomiting (N/V). traMADol 2020-0 Yes [id number] 50mg Take 1 Uni vers (ULTRAM) 50 5-08 tablet by ity of mg tablet 00:00: mouth [place] 00 every 6 Medical (six) Branch hours as needed for Pain (scale 7-10). albuterol 2020-0 Yes [id number] 2{puff} Inhale 2 [facility] 90 5-08 Puffs ity of mcg/actuati 00:00: every 4 [place] inhaler 00 (four) Medical hours as Branch needed for Wheezing, Shortness of Breath, Bronchospa sm or Chest tightness. benzonatate 2020-0 Yes [id number] 200mg Take 1 [facility] 200 mg 5-08 capsule by ity of capsule 00:00: mouth 3 [place] 00 (three) Medical times Branch daily as needed for Cough. ondansetron 2020-0 Yes [id number] 4mg Take 1 Univers (ZOFRAN) 4 5-08 tablet by ity of mg tablet 00:00: mouth [place] 00 every 8 Medical (eight) Branch hours as needed for Nausea and Vomiting (N/V). traMADol 2020-0 Yes [id number] 50mg Take 1 Uni vers (ULTRAM) 50 5-08 tablet by ity of mg tablet 00:00: mouth [place] 00 every 6 Medical (six) Branch hours as needed for Pain (scale 7-10). albuterol 2020-0 Yes [id number] 2{puff} Inhale 2 [facility] 90 5-08 Puffs ity of mcg/actuati 00:00: every 4 [place] inhaler 00 (four) Medical hours as Branch needed for Wheezing, Shortness of Breath, Bronchospa sm or Chest tightness. benzonatate 2020-0 Yes [id number] 200mg Take 1 [facility] 200 mg 5-08 capsule by ity of capsule 00:00: mouth 3 [place] 00 (three) Medical times Branch daily as needed for Cough. ondansetron 2020-0 Yes [id number] 4mg Take 1 Univers (ZOFRAN) 4 5-08 tablet by ity of mg tablet 00:00: mouth [place] 00 every 8 Medical (eight) Branch hours as needed for Nausea and Vomiting (N/V). traMADol 2020-0 Yes [id number] 50mg Take 1 Uni vers (ULTRAM) 50 5-08 tablet by ity of mg tablet 00:00: mouth [place] 00 every 6 Medical (six) Branch hours as needed for Pain (scale 7-10). albuterol 2020-0 Yes [id number] 2{puff} Inhale 2 [facility] 90 5-08 Puffs ity of mcg/actuati 00:00: every 4 [place] inhaler 00 (four) Medical hours as Branch needed for Wheezing, Shortness of Breath, Bronchospa sm or Chest tightness. benzonatate 2020-0 Yes [id number] 200mg Take 1 [facility] 200 mg 5-08 capsule by ity of capsule 00:00: mouth 3 [place] 00 (three) Medical times Branch daily as needed for Cough. ondansetron 2020-0 Yes [id number] 4mg Take 1 Univers (ZOFRAN) 4 5-08 tablet by ity of mg tablet 00:00: mouth [place] 00 every 8 Medical (eight) Branch hours as needed for Nausea and Vomiting (N/V). traMADol 2020-0 Yes [id number] 50mg Take 1 Uni vers (ULTRAM) 50 5-08 tablet by ity of mg tablet 00:00: mouth [place] 00 every 6 Medical (six) Branch hours as needed for Pain (scale 7-10). albuterol 2020-0 Yes [id number] 2{puff} Inhale 2 [facility] 90 5-08 Puffs ity of mcg/actuati 00:00: every 4 [place] on inhaler 00 (four) Medical hours as Branch needed for Wheezing, Shortness of Breath, Bronchospa sm or Chest tightness. benzonatate 2020-0 Yes [id number] 200mg Take 1 [facility] 200 mg 5-08 capsule by ity of capsule 00:00: mouth 3 [place] 00 (three) Medical times Branch daily as needed for Cough. ondansetron 2020-0 Yes [id number] 4mg Take 1 Univers (ZOFRAN) 4 5-08 tablet by ity of mg tablet 00:00: mouth [place] 00 every 8 Medical (eight) Branch hours as needed for Nausea and Vomiting (N/V). traMADol 2020-0 Yes [id number] 50mg Take 1 Uni vers (ULTRAM) 50 5-08 tablet by ity of mg tablet 00:00: mouth [place] 00 every 6 Medical (six) Branch hours as needed for Pain (scale 7-10). albuterol 2020-0 Yes [id number] 2{puff} Inhale 2 [facility] 90 5-08 Puffs ity of mcg/actuati 00:00: every 4 [place] on inhaler 00 (four) Medical hours as Branch needed for Wheezing, Shortness of Breath, Bronchospa sm or Chest tightness. benzonatate 2020-0 Yes [id number] 200mg Take 1 [facility] 200 mg 5-08 capsule by ity of capsule 00:00: mouth 3 00 (three) Medical times Branch daily as needed for Cough. ondansetron 2020-0 Yes [id number] 4mg Take 1 Univers (ZOFRAN) 4 5-08 tablet by ity of mg tablet 00:00: mouth [place] 00 every 8 Medical (eight) Branch hours as needed for Nausea and Vomiting (N/V). traMADol 2020-0 Yes [id number] 50mg Take 1 Uni vers (ULTRAM) 50 5-08 tablet by ity of mg tablet 00:00: mouth [place] 00 every 6 Medical (six) Branch hours as needed for Pain (scale 7-10). albuterol 2020-0 Yes [id number] 2{puff} Inhale 2 [facility] 90 5-08 Puffs ity of mcg/actuati 00:00: every 4 [place] on inhaler 00 (four) Medical hours as Branch needed for Wheezing, Shortness of Breath, Bronchospa sm or Chest tightness. benzonatate 2020-0 Yes [id number] 200mg Take 1 [facility] 200 mg 5-08 capsule by ity of capsule 00:00: mouth 3 [place] 00 (three) Medical times Branch daily as needed for Cough. ondansetron 2020-0 Yes [id number] 4mg Take 1 Univers (ZOFRAN) 4 5-08 tablet by ity of mg tablet 00:00: mouth [place] 00 every 8 Medical (eight) Branch hours as needed for Nausea and Vomiting (N/V). traMADol 2020-0 Yes [id number] 50mg Take 1 Uni vers (ULTRAM) 50 5-08 tablet by ity of mg tablet 00:00: mouth [place] 00 every 6 Medical (six) Branch hours as needed for Pain (scale 7-10). albuterol 2020-0 Yes [id number] 2{puff} Inhale 2 [facility] 90 5-08 Puffs ity of mcg/actuati 00:00: every 4 [place] on inhaler 00 (four) Medical hours as Branch needed for Wheezing, Shortness of Breath, Bronchospa sm or Chest tightness. benzonatate 2020-0 Yes [id number] 200mg Take 1 [facility] 200 mg 5-08 capsule by ity of capsule 00:00: mouth 3 [place] 00 (three) Medical times Branch daily as needed for Cough. ondansetron 2020-0 Yes [id number] 4mg Take 1 [facility] (ZOFRAN) 4 5-08 tablet by ity of mg tablet 00:00: mouth [place] 00 every 8 Medical (eight) Branch hours as needed for Nausea and Vomiting (N/V). traMADol 2020-0 Yes [id number] 50mg Take 1 Uni vers (ULTRAM) 50 5-08 tablet by ity of mg tablet 00:00: mouth [place] 00 every 6 Medical (six) Branch hours as needed for Pain (scale 7-10). albuterol 2020-0 Yes [id number] 2{puff} Inhale 2 [facility] 90 5-08 Puffs ity of mcg/actuati 00:00: every 4 [place] on inhaler 00 (four) Medical hours as Branch needed for Wheezing, Shortness of Breath, Bronchospa sm or Chest tightness. benzonatate 2020-0 Yes [id number] 200mg Take 1 [facility] 200 mg 5-08 capsule by ity of capsule 00:00: mouth 3 [place] 00 (three) Medical times Branch daily as needed for Cough. ondansetron 2020-0 Yes [id number] 4mg Take 1 Univers (ZOFRAN) 4 5-08 tablet by ity of mg tablet 00:00: mouth [place] 00 every 8 Medical (eight) Branch hours as needed for Nausea and Vomiting (N/V). traMADol 2020-0 Yes [id number] 50mg Take 1 Uni vers (ULTRAM) 50 5-08 tablet by ity of mg tablet 00:00: mouth [place] 00 every 6 Medical (six) Branch hours as needed for Pain (scale 7-10). albuterol 2020-0 Yes [id number] 2{puff} Inhale 2 [facility] 90 5-08 Puffs ity of mcg/actuati 00:00: every 4 [place] on inhaler 00 (four) Medical hours as Branch needed for Wheezing, Shortness of Breath, Bronchospa sm or Chest tightness. benzonatate 2020-0 Yes [id number] 200mg Take 1 [facility] 200 mg 5-08 capsule by ity of capsule 00:00: mouth 3 00 (three) Medical times Branch daily as needed for Cough. ondansetron 2020-0 Yes [id number] 4mg Take 1 Univers (ZOFRAN) 4 5-08 tablet by ity of mg tablet 00:00: mouth [place] 00 every 8 Medical (eight) Branch hours as needed for Nausea and Vomiting (N/V). traMADol 2020-0 Yes [id number] 50mg Take 1 Uni vers (ULTRAM) 50 5-08 tablet by ity of mg tablet 00:00: mouth [place] 00 every 6 Medical (six) Branch hours as needed for Pain (scale 7-10). albuterol 2020-0 Yes [id number] 2{puff} Inhale 2 [facility] 90 5-08 Puffs ity of mcg/actuati 00:00: every 4 [place] on inhaler 00 (four) Medical hours as Branch needed for Wheezing, Shortness of Breath, Bronchospa sm or Chest tightness. benzonatate 2020-0 Yes [id number] 200mg Take 1 [facility] 200 mg 5-08 capsule by ity of capsule 00:00: mouth 3 [place] 00 (three) Medical times Branch daily as needed for Cough. ondansetron 2020-0 Yes [id number] 4mg Take 1 Univers (ZOFRAN) 4 5-08 tablet by ity of mg tablet 00:00: mouth [place] 00 every 8 Medical (eight) Branch hours as needed for Nausea and Vomiting (N/V). traMADol 2020-0 Yes [id number] 50mg Take 1 Uni vers (ULTRAM) 50 5-08 tablet by ity of mg tablet 00:00: mouth [place] 00 every 6 Medical (six) Branch hours as needed for Pain (scale 7-10). albuterol 2020-0 Yes [id number] 2{puff} Inhale 2 [facility] 90 5-08 Puffs ity of mcg/actuati 00:00: every 4 [place] on inhaler 00 (four) Medical hours as Branch needed for Wheezing, Shortness of Breath, Bronchospa sm or Chest tightness. benzonatate 2020-0 Yes [id number] 200mg Take 1 [facility] 200 mg 5-08 capsule by ity of capsule 00:00: mouth 3 [place] 00 (three) Medical times Branch daily as needed for Cough. ondansetron 2020-0 Yes [id number] 4mg Take 1 [facility] (ZOFRAN) 4 5-08 tablet by ity of mg tablet 00:00: mouth [place] 00 every 8 Medical (eight) Branch hours as needed for Nausea and Vomiting (N/V). traMADol 2020-0 Yes [id number] 50mg Take 1 Uni vers (ULTRAM) 50 5-08 tablet by ity of mg tablet 00:00: mouth [place] 00 every 6 Medical (six) Branch hours as needed for Pain (scale 7-10). albuterol 2020-0 Yes [id number] 2{puff} Inhale 2 [facility] 90 5-08 Puffs ity of mcg/actuati 00:00: every 4 [place] on inhaler 00 (four) Medical hours as Branch needed for Wheezing, Shortness of Breath, Bronchospa sm or Chest tightness. benzonatate 2020-0 Yes [id number] 200mg Take 1 [facility] 200 mg 5-08 capsule by ity of capsule 00:00: mouth 3 [place] 00 (three) Medical times Branch daily as needed for Cough. ondansetron 2020-0 Yes [id number] 4mg Take 1 Univers (ZOFRAN) 4 5-08 tablet by ity of mg tablet 00:00: mouth [place] 00 every 8 Medical (eight) Branch hours as needed for Nausea and Vomiting (N/V). traMADol 2020-0 Yes [id number] 50mg Take 1 Uni vers (ULTRAM) 50 5-08 tablet by ity of mg tablet 00:00: mouth [place] 00 every 6 Medical (six) Branch hours as needed for Pain (scale 7-10). albuterol 2020-0 Yes [id number] 2{puff} Inhale 2 [facility] 90 5-08 Puffs ity of mcg/actuati 00:00: every 4 [place] on inhaler 00 (four) Medical hours as Branch needed for Wheezing, Shortness of Breath, Bronchospa sm or Chest tightness. benzonatate 2020-0 Yes [id number] 200mg Take 1 [facility] 200 mg 5-08 capsule by ity of capsule 00:00: mouth 3 [place] 00 (three) Medical times Branch daily as needed for Cough. ondansetron 2020-0 Yes [id number] 4mg Take 1 [facility] (ZOFRAN) 4 5-08 tablet by ity of mg tablet 00:00: mouth [place] 00 every 8 Medical (eight) Branch hours as needed for Nausea and Vomiting (N/V). traMADol 2020-0 Yes [id number] 50mg Take 1 Uni vers (ULTRAM) 50 5-08 tablet by ity of mg tablet 00:00: mouth [place] 00 every 6 Medical (six) Branch hours as needed for Pain (scale 7-10). albuterol 2020-0 Yes [id number] 2{puff} Inhale 2 [facility] 90 5-08 Puffs ity of mcg/actuati 00:00: every 4 [place] on inhaler 00 (four) Medical hours as Branch needed for Wheezing, Shortness of Breath, Bronchospa sm or Chest tightness. benzonatate 2020-0 Yes [id number] 200mg Take 1 [facility] 200 mg 5-08 capsule by ity of capsule 00:00: mouth 3 [place] 00 (three) Medical times Branch daily as needed for Cough. ondansetron 2020-0 Yes [id number] 4mg Take 1 Univers (ZOFRAN) 4 5-08 tablet by ity of mg tablet 00:00: mouth [place] 00 every 8 Medical (eight) Branch hours as needed for Nausea and Vomiting (N/V). traMADol 2020-0 Yes [id number] 50mg Take 1 Uni vers (ULTRAM) 50 5-08 tablet by ity of mg tablet 00:00: mouth [place] 00 every 6 Medical (six) Branch hours as needed for Pain (scale 7-10). albuterol 2020-0 Yes [id number] 2{puff} Inhale 2 [facility] 90 5-08 Puffs ity of mcg/actuati 00:00: every 4 [place] on inhaler 00 (four) Medical hours as Branch needed for Wheezing, Shortness of Breath, Bronchospa sm or Chest tightness. benzonatate 2020-0 Yes [id number] 200mg Take 1 [facility] 200 mg 5-08 capsule by ity of capsule 00:00: mouth 3 [place] 00 (three) Medical times Branch daily as needed for Cough. ondansetron 2020-0 Yes [id number] 4mg Take 1 [facility] (ZOFRAN) 4 5-08 tablet by ity of mg tablet 00:00: mouth [place] 00 every 8 Medical (eight) Branch hours as needed for Nausea and Vomiting (N/V). traMADol 2020-0 Yes [id number] 50mg Take 1 Uni vers (ULTRAM) 50 5-08 tablet by ity of mg tablet 00:00: mouth [place] 00 every 6 Medical (six) Branch hours as needed for Pain (scale 7-10). albuterol 2020-0 Yes [id number] 2{puff} Inhale 2 [facility] 90 5-08 Puffs ity of mcg/actuati 00:00: every 4 [place] on inhaler 00 (four) Medical hours as Branch needed for Wheezing, Shortness of Breath, Bronchospa sm or Chest tightness. benzonatate 2020-0 Yes [id number] 200mg Take 1 [facility] 200 mg 5-08 capsule by ity of capsule 00:00: mouth 3 [place] 00 (three) Medical times Branch daily as needed for Cough. ondansetron 2020-0 Yes [id number] 4mg Take 1 [facility] (ZOFRAN) 4 5-08 tablet by ity of mg tablet 00:00: mouth [place] 00 every 8 Medical (eight) Branch hours as needed for Nausea and Vomiting (N/V). traMADol 2020-0 Yes [id number] 50mg Take 1 Uni vers (ULTRAM) 50 5-08 tablet by ity of mg tablet 00:00: mouth [place] 00 every 6 Medical (six) Branch hours as needed for Pain (scale 7-10). albuterol 2020-0 Yes [id number] 2{puff} Inhale 2 [facility] 90 5-08 Puffs ity of mcg/actuati 00:00: every 4 [place] on inhaler 00 (four) Medical hours as Branch needed for Wheezing, Shortness of Breath, Bronchospa sm or Chest tightness. ondansetron 2020-0 Yes [id number] 4mg Take 1 [facility] (ZOFRAN) 4 5-08 tablet by ity of mg tablet 00:00: mouth [place] 00 every 8 Medical (eight) Branch hours as needed for Nausea and Vomiting (N/V). ondansetron 2020-0 Yes [id number] 4mg Take 1 Univers (ZOFRAN) 4 5-08 tablet by ity of mg tablet 00:00: mouth [place] 00 every 8 Medical (eight) Branch hours as needed for Nausea and Vomiting (N/V). ondansetron 2020-0 Yes [id number] 4mg Take 1 [facility] (ZOFRAN) 4 5-08 tablet by ity of mg tablet 00:00: mouth [place] 00 every 8 Medical (eight) Branch hours as needed for Nausea and Vomiting (N/V). ondansetron 2020-0 Yes [id number] 4mg Take 1 [facility] (ZOFRAN) 4 5-08 tablet by ity of mg tablet 00:00: mouth [place] 00 every 8 Medical (eight) Branch hours as needed for Nausea and Vomiting (N/V). Nitrofurant 2020-0 Yes [id number] 100mg Take 1 [facility] oin&Nit. 5-08 capsule by ity o f Macrocryst 00:00: mouth 2 [place] (MACROBID) 00 (two) Medical 100 mg times Branch capsule daily. benzonatate 2020-0 Yes [id number] 200mg Take 1 [facility] 200 mg 5-08 capsule by ity of capsule 00:00: mouth 3 [place] 00 (three) Medical times Branch daily as needed for Cough. ondansetron 2020-0 Yes [id number] 4mg Take 1 [facility] (ZOFRAN) 4 5-08 tablet by ity of mg tablet 00:00: mouth [place] 00 every 8 Medical (eight) Branch hours as needed for Nausea and Vomiting (N/V). traMADol 2020-0 Yes [id number] 50mg Take 1 Uni vers (ULTRAM) 50 5-08 tablet by ity of mg tablet 00:00: mouth [place] 00 every 6 Medical (six) Branch hours as needed for Pain (scale 7-10). albuterol Yes [id number] 2{puff} Inhale 2 [facility] 90 5-08 Puffs ity of mcg/actuati 00:00: every 4 [place] on inhaler 00 (four) Medical hours as Branch needed for Wheezing, Shortness of Breath, Bronchospa sm or Chest tightness. ondansetron 2020- No [id number] 4mg Take 1 [facility] (ZOFRAN) 4 5-08 06-30 tablet by ity of mg tablet 00:00: 00:00 mouth [place] 00 :00 every 8 Medical (eight) Branch hours as needed for Nausea and Vomiting (N/V). benzonatate 2020- No [id number] 200mg Take 1 [facility] 200 mg 5-08 04-05 capsule by ity of capsule 00:00: 00:00 mouth 3 [place] 00 :00 (three) Medical times Branch daily as needed for Cough. traMADol 2020- No [id number] 50mg Take 1 Un you (ULTRAM) 50 5-08 04-05 tablet by it y of mg tablet 00:00: 00:00 mouth [place] 00 :00 every 6 Medical (six) Branch hours as needed for Pain (scale 7-10). albuterol 2020- No [id number] 2{puff} Inhale 2 [facility] 90 5-08 04-05 Puffs ity of mcg/actuati 00:00: 00:00 every 4 [place] on inhaler 00 :00 (four) Medical hours as Branch needed for Wheezing, Shortness of Breath, Bronchospa sm or Chest tightness. benzonatate 2020- No [id number] 200mg Take 1 [facility] 200 mg 5-08 04-05 capsule by ity of capsule 00:00: 00:00 mouth 3 [place] 00 :00 (three) Medical times Branch daily as needed for Cough. traMADol 2020- No [id number] 50mg Take 1 Un you (ULTRAM) 50 5-08 04-05 tablet by it y of mg tablet 00:00: 00:00 mouth [place] 00 :00 every 6 Medical (six) Branch hours as needed for Pain (scale 7-10). albuterol [id number] 2{puff} Inhale 2 [facility] 90 08 04-05 Puffs ity of mcg/actuati 00:00: 00:00 every 4 [place] inhaler 00 :00 (four) Medical hours as Branch needed for Wheezing, Shortness of Breath, Bronchospa sm or Chest tightness. Nitrofurant 2019- No [id number] 100mg Take 1 [facility] oin&Nit. 08-20 capsule by ity of Macrocryst 00:00: 00:00 mouth 2 [place] (MACROBID) 00 :00 (two) Medical 100 mg times Branch capsule daily. HYDROcodone 2019- No 1{tbl} 1 tablet, Univers -acetaminop 06-25 Oral, ONCE i ty of hen (NORCO) 01:15: 00:22 NOW, 1 [place] as 10-325 mg 00 :00 dose, [place] Medic al tablet 1 06/25/19 at [facility] h tablet 2014, [place] dicyclomine [...] mg 00 :00 NOW, 1 Medical dose, [facility] Branch 06/25/19 at 1945, [place] metoclopram 2019- No 10mg 10 mg, Uni vers selena HCl 06-24 Slow IV ity of (REGLAN) 23:45: 22:48 Push, [place] injection 00 :00 ONCE, 1 Medical 10 mg dose, [facility] Branch 06/25/19 at 1845, [place] ketorolac 2019- No 30mg 30 mg, Unive rs (TORADOL) 06-24 Slow IV ity of injection 23:45: 22:49 Push, [place] 30 mg 00 :00 ONCE, 1 Medical dose, [facility] Branch 06/25/19 at 1845, [place]
Fa culty member approving Restricted medication : KIRSTIN RON NaCl 0.9% 2020-0 2020- No 1000mL at 999 Uni vers (NS) bolus 06-24-13 mL/hr, ity of infusion 22:45: 01:01 1,000 mL, [place] as 1,000 mL 00 :00 IV Medical Infusion, [place] ONCE, 1 dose, Lilian 06/25/19 at 1745, [place] maalox:diph 2020-0 2020- No 15mL 15 mL, Uni vers enhydrAMINE 06-2412 Oral, ity of :lidocaine 22:45: 22:52 ONCE, 1 [place] 2 % viscous 00 :00 dose, [place] Med ical 1:1:1 06/25/19 at [place] (FIRST-MO 174, [place] [facility]) oral suspension 15 mL morpHINE 2020-0 2020- No 4mg 4 mg, Slow Un you injection 4 06-19 IV Push, ity of mg 01:00: 00:10 ONCE, 1 [place] 00 :00 dose, Fri Medical 06/19/19 at [place] 1900, STAT maalox:diph 2020-0 2020- No 15mL 15 mL, Uni vers enhydrAMINE 06-19 Oral, ity of :lidocaine 01:00: 00:10 ONCE, 1 [place] 2 % viscous 00 :00 dose, Fri Med ical 1:1:1 06/19/19 at [place] (FIRST-MO 190, [facility]) Routine oral suspension 15 mL famotidine 2020-0 2020- No 20mg 20 mg, Univ ers (PEPCID 06-18 Slow IV ity of (PF)) 22:30: 21:40 Push, [place] injection 00 :00 ONCE, 1 Medical 20 mg dose, Fri [place] 06/19/19 at 1630, [place] proMETHazin 2020-0 2020- No 12.5mg 12.5 mg, Univers e 06-18 IV ity of (PHENERGAN) 22:30: 21:40 [place], [place] 12.5 mg in 00 :00 ONCE, 1 Medica l NaCl 0.9% dose, Fri Branc h (NS) 50 mL 06/19/19 at piggyback 1630, 50 mL morpHINE 2020-0 2020- No 4mg 4 mg, Slow Un yuo injection 4 3-06 03-06 IV Push, ity [...] 06/19/19 at 1530, [place] ondansetron 2020-0 Yes [id number] 8mg Take 2 [facility] 4 mg 3-06 tablets by ity of disintegrat 00:00: mouth [place] ing tablet 00 every 8 Medica l (eight) Branch hours as needed for Nausea and Vomiting (N/V). ondansetron 2020-0 Yes [id number] 8mg Take 2 Univers 4 mg 3-06 tablets by ity of disintegrat 00:00: mouth [place] ing tablet 00 every 8 Medica l (eight) Branch hours as needed for Nausea and Vomiting (N/V). ondansetron 2020-0 Yes [id number] 8mg Take 2 [facility] 4 mg 3-06 tablets by ity of disintegrat 00:00: mouth [place] ing tablet 00 every 8 Medica l (eight) Branch hours as needed for Nausea and Vomiting (N/V). ondansetron 2020-0 Yes [id number] 8mg Take 2 [facility] 4 mg 3-06 tablets by ity of disintegrat 00:00: mouth [place] ing tablet 00 every 8 Medica l (eight) Branch hours as needed for Nausea and Vomiting (N/V). ondansetron 2020-0 2020- No [id number] 8mg Take 2 [facility] 4 mg 3-06 10-26 tablets by ity of disintegrat 00:00: 00:00 [place] tablet 00 :00 every 8 Medica l (eight) Branch hours as needed for Nausea and Vomiting (N/V). famotidine 2019-0 2020- No [id number] 40mg Take 1 Univers (PEPCID) 40 3-06 04-06 tablet by it y of mg tablet 00:00: 04:59 mouth [place] 00 :00 daily for Medical 30 days. [place] famotidine 2020-0 2020- No [id number] 40mg Take 1 Univers (PEPCID) 40 3-06 04-06 tablet by it y of mg tablet 00:00: 04:59 mouth [place] 00 :00 daily for Medical 30 days. Branch morpHINE 2020-0 2020- No 4mg 4 mg, Slow Un you injection 4 2-05 02-05 IV Push, ity of mg 04:15: 03:09 ONCE, 1 [place] 00 :00 dose, Tue Medical 05/19/19 at Branch 2215, STAT iohexol 2020-0 2020- No 120mL 120 mL, Unive rs (OMNIPAQUE 2- 02-05 Intravenou it y of 350 02:15: 02:15 s, ONCE, 1 [place] BULK-150 00 :00 dose, Tue Medica l mL) 05/19/19 at Branch injection 2014, 120 mL Routine ondansetron 2019-0 2020- No 4mg 4 mg, Slow Univers (ZOFRAN 2-08 14-05 IV Push, ity of (PF)) 02:15: 01:25 ONCE, 1 [place] injection 4 00 :00 dose, Tue Med ical mg 05/19/19 at Branch 2014, Routine morpHINE 2019-0 2020- No 4mg 4 mg, Slow Un you injection 4 05-20 02-05 IV Push, ity of mg 02:15: 01:25 ONCE, 1 00 :00 dose, Tue Medical 05/19/19 at Branch 2014, STAT traMADol 2020-0 Yes [id number] 100mg Take 1 Un you 100 mg 24 2-04 tablet by ity o f hr tablet 00:00: mouth [place] 00 daily. Medical Branch ondansetron 2020-0 Yes [id number] 4mg Take 1 Univers 4 mg 2-04 tablet by ity of disintegrat 00:00: mouth [place] ing tablet 00 every 8 Medica l (eight) Branch hours as needed for Nausea and Vomiting (N/V). ondansetron 2020-0 Yes [id number] 4mg Take 1 Univers 4 mg 2-04 tablet by ity of disintegrat 00:00: mouth [place] ing tablet 00 every 8 Medica l (eight) Branch hours as needed for Nausea and Vomiting (N/V). ondansetron 2020-0 Yes [id number] 4mg Take 1 Univers 4 mg 2-04 tablet by ity of disintegrat 00:00: mouth [place] ing tablet 00 every 8 Medica l (eight) Branch hours as needed for Nausea and Vomiting (N/V). ondansetron 2020-0 Yes [id number] 4mg Take 1 Univers 4 mg 2-04 tablet by ity of disintegrat 00:00: mouth [place] ing tablet 00 every 8 Medica l (eight) Branch hours as needed for Nausea and Vomiting (N/V). ondansetron 2020-0 Yes [id number] 4mg Take 1 Univers 4 mg 2-04 tablet by ity of disintegrat 00:00: mouth [place] ing tablet 00 every 8 Medica l (eight) Branch hours as needed for Nausea and Vomiting (N/V). ondansetron 2020-0 Yes [id number] 4mg Take 1 Univers 4 mg 2-04 tablet by ity of disintegrat 00:00: mouth [place] ing tablet 00 every 8 Medica l (eight) Branch hours as needed for Nausea and Vomiting (N/V). ondansetron 2020-0 Yes [id number] 4mg Take 1 Univers 4 mg 2-04 tablet by ity of disintegrat 00:00: mouth [place] ing tablet 00 every 8 Medica l (eight) Branch hours as needed for Nausea and Vomiting (N/V). ondansetron 2020-0 Yes [id number] 4mg Take 1 Univers 4 mg 2-04 tablet by ity of disintegrat 00:00: mouth [place] ing tablet 00 every 8 Medica l (eight) Branch hours as needed for Nausea and Vomiting (N/V). ondansetron 2020-0 Yes [id number] 4mg Take 1 Univers 4 mg 2-04 tablet by ity of disintegrat 00:00: mouth [place] ing tablet 00 every 8 Medica l (eight) Branch hours as needed for Nausea and Vomiting (N/V). ondansetron 2020-0 Yes [id number] 4mg Take 1 Univers 4 mg 2-04 tablet by ity of disintegrat 00:00: mouth [place] ing tablet 00 every 8 Medica l (eight) Branch hours as needed for Nausea and Vomiting (N/V). ondansetron 2020-0 Yes [id number] 4mg Take 1 Univers 4 mg 2-04 tablet by ity of disintegrat 00:00: mouth [place] ing tablet 00 every 8 Medica l (eight) Branch hours as needed for Nausea and Vomiting (N/V). ondansetron 2020-0 Yes [id number] 4mg Take 1 Univers 4 mg 2-04 tablet by ity of disintegrat 00:00: mouth [place] ing tablet 00 every 8 Medica l (eight) Branch hours as needed for Nausea and Vomiting (N/V). ondansetron 2020-0 Yes [id number] 4mg Take 1 Univers 4 mg 2-04 tablet by ity of disintegrat 00:00: mouth [place] ing tablet 00 every 8 Medica l (eight) Branch hours as needed for Nausea and Vomiting (N/V). ondansetron 2020-0 Yes [id number] 4mg Take 1 Univers 4 mg 2-04 tablet by ity of disintegrat 00:00: mouth [place] ing tablet 00 every 8 Medica l (eight) Branch hours as needed for Nausea and Vomiting (N/V). ondansetron 2020-0 Yes [id number] 4mg Take 1 Univers 4 mg 2-04 tablet by ity of disintegrat 00:00: mouth [place] ing tablet 00 every 8 Medica l (eight) Branch hours as needed for Nausea and Vomiting (N/V). ondansetron 2020-0 Yes [id number] 4mg Take 1 Univers 4 mg 2-04 tablet by ity of disintegrat 00:00: mouth [place] ing tablet 00 every 8 Medica l (eight) Branch hours as needed for Nausea and Vomiting (N/V). ondansetron 2020-0 Yes [id number] 4mg Take 1 Univers 4 mg 2-04 tablet by ity of disintegrat 00:00: mouth [place] ing tablet 00 every 8 Medica l (eight) Branch hours as needed for Nausea and Vomiting (N/V). ondansetron 2020-0 Yes [id number] 4mg Take 1 Univers 4 mg 2-04 tablet by ity of disintegrat 00:00: mouth [place] ing tablet 00 every 8 Medica l (eight) Branch hours as needed for Nausea and Vomiting (N/V). ondansetron 2020-0 Yes [id number] 4mg Take 1 Univers 4 mg 2-04 tablet by ity of disintegrat 00:00: mouth [place] ing tablet 00 every 8 Medica l (eight) Branch hours as needed for Nausea and Vomiting (N/V). traMADol 2020-0 Yes [id number] 100mg Take 1 Un you 100 mg 24 2-04 tablet by ity o f hr tablet 00:00: mouth [place] 00 daily. Medical Branch ondansetron 2020-0 Yes [id number] 4mg Take 1 Univers 4 mg 2-04 tablet by ity of disintegrat 00:00: mouth [place] ing tablet 00 every 8 Medica l (eight) Branch hours as needed for Nausea and Vomiting (N/V). traMADol 2020-0 Yes [id number] 100mg Take 1 Un you 100 mg 24 2-04 tablet by ity o f hr tablet 00:00: mouth [place] 00 daily. Medical Branch ondansetron 2020-0 Yes [id number] 4mg Take 1 Univers 4 mg 2-04 tablet by ity of disintegrat 00:00: mouth [place] ing tablet 00 every 8 Medica l (eight) Branch hours as needed for Nausea and Vomiting (N/V). traMADol 2020-0 Yes [id number] 100mg Take 1 Un you 100 mg 24 2-04 tablet by ity o f hr tablet 00:00: mouth [place] 00 daily. Medical Branch ondansetron 2020-0 Yes [id number] 4mg Take 1 Univers 4 mg 2-04 tablet by ity of disintegrat 00:00: mouth [place] ing tablet 00 every 8 Medica l (eight) Branch hours as needed for Nausea and Vomiting (N/V). traMADol 2020-0 Yes [id number] 100mg Take 1 Un you 100 mg 24 2-04 tablet by ity o f hr tablet 00:00: mouth [place] 00 daily. Medical Branch ondansetron 2020-0 Yes [id number] 4mg Take 1 Univers 4 mg 2-04 tablet by ity of disintegrat 00:00: mouth [place] ing tablet 00 every 8 Medica l (eight) Branch hours as needed for Nausea and Vomiting (N/V). traMADol 2020-0 Yes [id number] 100mg Take 1 Un you 100 mg 24 2-04 tablet by ity o f hr tablet 00:00: mouth [place] 00 daily. Medical Branch ondansetron 2020-0 Yes [id number] 4mg Take 1 Univers 4 mg 2-04 tablet by ity of disintegrat 00:00: mouth [place] ing tablet 00 every 8 Medica l (eight) Branch hours as needed for Nausea and Vomiting (N/V). ondansetron 2020- No [id number] 4mg Take 1 [facility] 4 mg 2-04 04-05 tablet by ity of disintegrat 00:00: 00:00 [place] tablet 00 :00 every 8 Medica l (eight) Branch hours as needed for Nausea and Vomiting (N/V). ondansetron 2020- No [id number] 4mg Take 1 [facility] 4 mg 2-04 04-05 tablet by ity of disintegrat 00:00: 00:00 mouth [place] ing tablet 00 :00 every 8 Medica l (eight) Branch hours as needed for Nausea and Vomiting (N/V). traMADol No [id number] 100mg Take 1 U nivers 100 mg [...] 3 it y of capsule 02:27: (three) [place] 44 times Medical daily. Branch meloxicam 2018-04 [...] 3 it y of capsule 02:27: (three) [place] 44 times Medical daily. Branch meloxicam 2018-04 [...] 44 daily. Medical Branch ondansetron 2018-04 Yes [id number] 4mg Take 1 Univers 4 mg tablet 0-26 tablet by ity of 00:00: mouth [place] 00 every 8 Medical (eight) Branch hours as needed for Nausea and Vomiting (N/V). ondansetron 2018-04 Yes [id number] 4mg Take 1 Univers 4 mg tablet 0-26 tablet by ity of 00:00: mouth [place] 00 every 8 Medical (eight) Branch hours as needed for Nausea and Vomiting (N/V). ondansetron 2018-04 Yes [id number] 4mg Take 1 Univers 4 mg tablet 0-26 tablet by ity of 00:00: mouth [place] 00 every 8 Medical (eight) Branch hours as needed for Nausea and Vomiting (N/V). ondansetron 2018-04 Yes [id number] 4mg Take 1 Univers 4 mg tablet 0-26 tablet by ity of 00:00: mouth [place] 00 every 8 Medical (eight) Branch hours as needed for Nausea and Vomiting (N/V). ondansetron 2018-04 Yes [id number] 4mg Take 1 Univers 4 mg tablet 0-26 tablet by ity of 00:00: mouth [place] 00 every 8 Medical (eight) Branch hours as needed for Nausea and Vomiting (N/V). ondansetron 2018-04 Yes [id number] 4mg Take 1 Univers 4 mg tablet 0-26 tablet by ity of 00:00: mouth [place] 00 every 8 Medical (eight) Branch hours as needed for Nausea and Vomiting (N/V). ondansetron 2018-04 2020- No [id number] 4mg Take 1 Univers 4 mg tablet 0-26 10-26 tablet by it y of 00:00: 00:00 mouth [place] 00 :00 every 8 Medical (eight) Branch hours as needed for Nausea and Vomiting (N/V). losartan Yes [id number] 100mg Take 1 Un you 100 mg 9-23 tablet by ity of tablet 00:00: mouth [place] 00 daily. Medical Branch losartan Yes [id number] 100mg Take 1 Un you 100 mg 9-23 tablet by ity of tablet 00:00: mouth [place] 00 daily. Medical Branch losartan Yes [id number] 100mg Take 1 Un you 100 mg 9-23 tablet by ity of tablet 00:00: mouth [place] 00 daily. Medical Branch losartan Yes [id number] 100mg Take 1 Un you 100 mg 9-23 tablet by ity of tablet 00:00: mouth [place] 00 daily. Medical Branch losartan 0 Yes [id number] 100mg Take 1 Un you 100 mg 9-23 tablet by ity of tablet 00:00: mouth [place] 00 daily. Medical Branch losartan Yes [id number] 100mg Take 1 Un you 100 mg 9-23 tablet by ity of tablet 00:00: mouth [place] 00 daily. Medical Branch losartan Yes [id number] 100mg Take 1 Un you 100 mg 9-23 tablet by ity of tablet 00:00: mouth [place] 00 daily. Medical Branch losartan 0 Yes [id number] 100mg Take 1 Un you 100 mg 9-23 tablet by ity of tablet 00:00: mouth [place] 00 daily. Medical Branch losartan 2018-0 Yes [id number] 100mg Take 1 Un you 100 mg 9-23 tablet by ity of tablet 00:00: mouth [place] 00 daily. Medical Branch losartan 2018- Yes [id number] 100mg Take 1 Un you 100 mg 9-23 tablet by ity of tablet 00:00: mouth [place] 00 daily. Medical Branch losartan 2018- Yes [id number] 100mg Take 1 Un you 100 mg 9-23 tablet by ity of tablet 00:00: mouth [place] 00 daily. Medical Branch losartan 2019-0 Yes [id number] 100mg Take 1 Un you 100 mg 9-23 tablet by ity of tablet 00:00: mouth [place] 00 daily. Medical Branch losartan 2018-0 Yes [id number] 100mg Take 1 Un you 100 mg 9-23 tablet by ity of tablet 00:00: mouth [place] 00 daily. Medical Branch losartan 2018-0 Yes [id number] 100mg Take 1 Un you 100 mg 9-23 tablet by ity of tablet 00:00: mouth [place] 00 daily. Medical Branch losartan 2018-0 Yes [id number] 100mg Take 1 Un you 100 mg 9-23 tablet by ity of tablet 00:00: mouth [place] 00 daily. Medical Branch losartan 2018-0 Yes [id number] 100mg Take 1 Un you 100 mg 9-23 tablet by ity of tablet 00:00: mouth [place] 00 daily. Medical Branch losartan 2018-0 Yes [id number] 100mg Take 1 Un you 100 mg 9-23 tablet by ity of tablet 00:00: mouth [place] 00 daily. Medical Branch losartan 2018-0 Yes [id number] 100mg Take 1 Un you 100 mg 9-23 tablet by ity of tablet 00:00: mouth [place] 00 daily. Medical Branch losartan 2018-0 Yes [id number] 100mg Take 1 Un you 100 mg 9-23 tablet by ity of tablet 00:00: mouth [place] 00 daily. Medical Branch losartan 2019-0 Yes [id number] 100mg Take 1 Un you 100 mg 9-23 tablet by ity of tablet 00:00: mouth [place] 00 daily. Medical Branch losartan 2019-0 Yes [id number] 100mg Take 1 Un you 100 mg 9-23 tablet by ity of tablet 00:00: mouth [place] 00 daily. Medical Branch losartan 2019-0 Yes [id number] 100mg Take 1 Un you 100 mg 9-23 tablet by ity of tablet 00:00: mouth [place] 00 daily. Medical Branch losartan 2019-0 Yes [id number] 100mg Take 1 Un you 100 mg 9-23 tablet by ity of tablet 00:00: mouth [place] 00 daily. Medical Branch losartan 2019-0 Yes [id number] 100mg Take 1 Un you 100 mg 9-23 tablet by ity of tablet 00:00: mouth [place] 00 daily. Medical Branch losartan 2018-2020- No [id number] 100mg Take 1 U nivers 100 mg 01-05 tablet by ity of tablet 00:00: 00:00 mouth [place] 00 :00 daily. Medical Branch losartan 2018-2020- No [id number] 100mg Take 1 U nivers 100 mg 01-05 tablet by ity of tablet 00:00: 00:00 mouth [place] 00 :00 daily. Medical Branch traMADol 50 Yes [id number] 1 by mouth Univers mg tablet 12-05 [id number] every 4-6 ity of 00:00: hours as [place] 00 needed for Medical pain Branch traMADol 50 2018- Yes [id number] 1 by mouth [facility] mg tablet 12-05 [id number] every 4-6 ity of 00:00: hours as [place] 00 needed for Medical pain Branch traMADol 50 2018- Yes [id number] 1 by mouth [facility] mg tablet 12-05 [id number] every 4-6 ity of 00:00: hours as [place] 00 needed for Medical pain Branch traMADol 50 Yes [id number] 1 by mouth Univers mg tablet 12-05 [id number] every 4-6 ity of 00:00: hours as [place] 00 needed for Medical pain Branch traMADol 50 2018- Yes [id number] 1 by mouth [facility] mg tablet 12-05 [id number] every 4-6 ity of 00:00: hours as [place] 00 needed for Medical pain Branch traMADol 50 2018- Yes [id number] 1 by mouth [facility] mg tablet 12-05 [id number] every 4-6 ity of 00:00: hours as [place] 00 needed for Medical pain Branch traMADol 50 2018- Yes [id number] 1 by mouth Univers mg tablet 12-05 [id number] every 4-6 ity of 00:00: hours as [place] 00 needed for Medical pain Branch traMADol 50 2019- Yes [id number] 1 by mouth [facility] mg tablet 12-05 [id number] every 4-6 ity of 00:00: hours as [place] 00 needed for Medical pain Branch traMADol 50 2019- Yes [id number] 1 by mouth [facility] mg tablet 12-05 [id number] every 4-6 ity of 00:00: hours as [place] 00 needed for Medical pain Branch traMADol 50 2018- Yes [id number] 1 by mouth [facility] mg tablet 12-05 [id number] every 4-6 ity of 00:00: hours as [place] 00 needed for Medical pain Branch traMADol 50 2019-0 Yes [id number] 1 by mouth [facility] mg tablet 8- [id number] every 4-6 ity of 00:00: hours as [place] 00 needed for Medical pain Branch traMADol 50 2019-0 Yes [id number] 1 by mouth Univers mg tablet 8- [id number] every 4-6 ity of 00:00: hours as [place] 00 needed for Medical pain Branch traMADol 50 2019-0 Yes [id number] 1 by mouth [facility] mg tablet 12-05 [id number] every 4-6 ity of 00:00: hours as [place] 00 needed for Medical pain Branch traMADol 50 2019-0 Yes [id number] 1 by mouth [facility] mg tablet - [id number] every 4-6 ity of 00:00: hours as [place] 00 needed for Medical pain Branch traMADol 50 2019-0 Yes [id number] 1 by mouth Univers mg tablet 12-05 [id number] every 4-6 ity of 00:00: hours as [place] 00 needed for Medical pain Branch traMADol 50 2019-0 Yes [id number] 1 by mouth [facility] mg tablet 12-05 [id number] every 4-6 ity of 00:00: hours as [place] 00 needed for Medical pain Branch traMADol 50 2019-0 Yes [id number] 1 by mouth [facility] mg tablet 12-05 [id number] every 4-6 ity of 00:00: hours as [place] 00 needed for Medical pain Branch traMADol 50 2019-0 2020- No [id number] 1 by mouth [facility] mg tablet 12-05- [id number] every 4-6 it y of 00:00: 00:00 [...] 1 [place] 00 :00 dose, Mon Medical 8/19/19 at Branch 1745, Routine ketorolac 2019-0 2019- No 30mg 30 mg, [...] [place] tablet 24 bedtime. Medical Branch escitalopra 2019 Yes 5mg Take 5 mg U nivers [...] Branch 11/16/18 at 2115, [place] pantoprazol Yes [id number] 40mg Take 1 Univers e 40 mg EC 8-05 tablet by ity of tablet 00:00: mouth 2 [place] 00 (two) Medical times Branch daily. proMETHazin Yes [id number] 25mg Take 1 Univers e 25 mg 8-05 tablet by ity of tablet 00:00: mouth [place] 00 every 6 Medical (six) Branch hours as needed for N/V alternatin g with Ondansetro n. HYDROcodone Yes [id number] 1{tbl} Take 1 Univers -acetaminop 8-05 tablet by ity of hen 7.5-325 00:00: mouth [place] mg per 00 every 6 Medical tablet (six) Branch hours as needed (Pain scal 7-10). pantoprazol Yes [id number] 40mg Take 1 Univers e 40 mg EC 8-05 tablet by ity of tablet 00:00: mouth 2 [place] 00 (two) Medical times Branch daily. proMETHazin Yes [id number] 25mg Take 1 Univers e 25 mg 8-05 tablet by ity of tablet 00:00: mouth [place] 00 every 6 Medical (six) Branch hours as needed for N/V alternatin g with Ondansetro n. HYDROcodone Yes [id number] 1{tbl} Take 1 Univers -acetaminop 8-05 tablet by ity of hen 7.5-325 00:00: mouth [place] mg per 00 every 6 Medical tablet (six) Branch hours as needed (Pain scal 7-10). pantoprazol Yes [id number] 40mg Take 1 Univers e 40 mg EC 8-05 tablet by ity of tablet 00:00: mouth 2 [place] 00 (two) Medical times Branch daily. proMETHazin Yes [id number] 25mg Take 1 Univers e 25 mg 8-05 tablet by ity of tablet 00:00: mouth [place] 00 every 6 Medical (six) Branch hours as needed for N/V alternatin g with Ondansetro n. HYDROcodone Yes [id number] 1{tbl} Take 1 Univers -acetaminop 8-05 tablet by ity of hen 7.5-325 00:00: mouth [place] mg per 00 every 6 Medical tablet (six) Branch hours as needed (Pain scal 7-10). pantoprazol Yes [id number] 40mg Take 1 Univers e 40 mg EC 8-05 tablet by ity of tablet 00:00: mouth 2 [place] 00 (two) Medical times Branch daily. proMETHazin Yes [id number] 25mg Take 1 Univers e 25 mg 8-05 tablet by ity of tablet 00:00: mouth [place] 00 every 6 Medical (six) Branch hours as needed for N/V alternatin g with Ondansetro n. HYDROcodone Yes [id number] 1{tbl} Take 1 Univers -acetaminop 8-05 tablet by ity of hen 7.5-325 00:00: mouth [place] mg per 00 every 6 Medical tablet (six) Branch hours as needed (Pain scal 7-10). pantoprazol Yes [id number] 40mg Take 1 Univers e 40 mg EC 8-05 tablet by ity of tablet 00:00: mouth 2 [place] 00 (two) Medical times Branch daily. proMETHazin Yes [id number] 25mg Take 1 Univers e 25 mg 8-05 tablet by ity of tablet 00:00: mouth [place] 00 every 6 Medical (six) Branch hours as needed for N/V alternatin g with Ondansetro n. HYDROcodone Yes [id number] 1{tbl} Take 1 Univers -acetaminop 8-05 tablet by ity of hen 7.5-325 00:00: mouth [place] mg per 00 every 6 Medical tablet (six) Branch hours as needed (Pain scal 7-10). pantoprazol Yes [id number] 40mg Take 1 Univers e 40 mg EC 8-05 tablet by ity of tablet 00:00: mouth 2 [place] 00 (two) Medical times Branch daily. proMETHazin Yes [id number] 25mg Take 1 Univers e 25 mg 8-05 tablet by ity of tablet 00:00: mouth [place] 00 every 6 Medical (six) Branch hours as needed for N/V alternatin g with Ondansetro n. HYDROcodone Yes [id number] 1{tbl} Take 1 Univers -acetaminop 8-05 tablet by ity of hen 7.5-325 00:00: mouth [place] mg per 00 every 6 Medical tablet (six) Branch hours as needed (Pain scal 7-10). pantoprazol Yes [id number] 40mg Take 1 Univers e 40 mg EC 8-05 tablet by ity of tablet 00:00: mouth 2 (two) Medical times Branch daily. proMETHazin Yes [id number] 25mg Take 1 Univers e 25 mg 8-05 tablet by ity of tablet 00:00: mouth [place] 00 every 6 Medical (six) Branch hours as needed for N/V alternatin g with Ondansetro n. HYDROcodone Yes [id number] 1{tbl} Take 1 Univers -acetaminop 8-05 tablet by ity of hen 7.5-325 00:00: mouth [place] mg per 00 every 6 Medical tablet (six) Branch hours as needed (Pain scal 7-10). pantoprazol Yes [id number] 40mg Take 1 Univers e 40 mg EC 8-05 tablet by ity of tablet 00:00: mouth 2 00 (two) Medical times Branch daily. proMETHazin Yes [id number] 25mg Take 1 Univers e 25 mg 8-05 tablet by ity of tablet 00:00: mouth [place] 00 every 6 Medical (six) Branch hours as needed for N/V alternatin g with Ondansetro n. HYDROcodone Yes [id number] 1{tbl} Take 1 Univers -acetaminop 8-05 tablet by ity of hen 7.5-325 00:00: mouth [place] mg per 00 every 6 Medical tablet (six) Branch hours as needed (Pain scal 7-10). pantoprazol 2018- Yes [id number] 40mg Take 1 Univers e 40 mg EC 8-05 tablet by ity of tablet 00:00: mouth 2 [place] 00 (two) Medical times Branch daily. proMETHazin Yes [id number] 25mg Take 1 Univers e 25 mg 8-05 tablet by ity of tablet 00:00: mouth [place] 00 every 6 Medical (six) Branch hours as needed for N/V alternatin g with Ondansetro n. HYDROcodone Yes [id number] 1{tbl} Take 1 [facility] -acetaminop 8-05 tablet by ity of hen 7.5-325 00:00: mouth [place] mg per 00 every 6 Medical tablet (six) Branch hours as needed (Pain scal 7-10). pantoprazol Yes [id number] 40mg Take 1 Univers e 40 mg EC 8-05 tablet by ity of tablet 00:00: mouth 2 [place] 00 (two) Medical times Branch daily. proMETHazin Yes [id number] 25mg Take 1 Univers e 25 mg 8-05 tablet by ity of tablet 00:00: mouth [place] 00 every 6 Medical (six) Branch hours as needed for N/V alternatin g with Ondansetro n. HYDROcodone Yes [id number] 1{tbl} Take 1 [facility] -acetaminop 8-05 tablet by ity of hen 7.5-325 00:00: mouth [place] mg per 00 every 6 Medical tablet (six) Branch hours as needed (Pain scal 7-10). pantoprazol Yes [id number] 40mg Take 1 Univers e 40 mg EC 8-05 tablet by ity of tablet 00:00: mouth 2 [place] 00 (two) Medical times Branch daily. proMETHazin Yes [id number] 25mg Take 1 [facility]-05 [facility] by [facility] tablet 00:00: mouth [place] 00 every 6 Medical (six) Branch hours as needed for N/V alternatin g with Ondansetro n. HYDROcodone 2018- Yes [id number] 1{tbl} Take 1 [facility] -acetaminop 8-05 tablet by [facility] hen 7.5-325 00:00: mouth [place] mg per 00 every 6 Medical tablet (six) Branch hours as needed (Pain scal 7-10). pantoprazol Yes [id number] 40mg Take 1 [facility] 40 mg EC 8-05 tablet by [facility] tablet 00:00: mouth 2 [place] 00 (two) Medical times Branch daily. proMETHazin Yes [id number] 25mg Take 1 [facility] 25 mg 8-05 tablet by [facility] tablet 00:00: mouth [place] 00 every 6 Medical (six) Branch hours as needed for N/V alternatin g with Ondansetro n. HYDROcodone Yes [id number] 1{tbl} Take 1 [facility] -acetaminop 8-05 tablet by [facility] hen 7.5-325 00:00: mouth [place] mg per 00 every 6 Medical tablet (six) Branch hours as needed (Pain scal 7-10). pantoprazol Yes [id number] 40mg Take 1 [facility] 40 mg EC 8-05 tablet by [facility] tablet 00:00: mouth 2 [place] 00 (two) Medical times Branch daily. proMETHazin Yes [id number] 25mg Take 1 [facility] 25 mg 8-05 tablet by [facility] tablet 00:00: mouth [place] 00 every 6 Medical (six) Branch hours as needed for N/V alternatin g with Ondansetro n. HYDROcodone Yes [id number] 1{tbl} Take 1 [facility] -acetaminop 8-05 tablet by [facility] hen 7.5-325 00:00: mouth [place] mg per 00 every 6 Medical tablet (six) Branch hours as needed (Pain scal 7-10). pantoprazol Yes [id number] 40mg Take 1 [facility] 40 mg EC 8-05 tablet by [facility] tablet 00:00: mouth 2 [place] 00 (two) Medical times Branch daily. proMETHazin Yes [id number] 25mg Take 1 [facility] 25 mg 8-05 tablet by [facility] tablet 00:00: mouth [place] 00 every 6 Medical (six) Branch hours as needed for N/V alternatin g with Ondansetro n. HYDROcodone Yes [id number] 1{tbl} Take 1 [facility] -acetaminop 8-05 tablet by [facility] hen 7.5-325 00:00: mouth [place] mg per 00 every 6 Medical tablet (six) Branch hours as needed (Pain scal 7-10). pantoprazol Yes [id number] 40mg Take 1 [facility] 40 mg EC 8-05 tablet by [facility] tablet 00:00: mouth 2 [place] 00 (two) Medical times Branch daily. proMETHazin Yes [id number] 25mg Take 1 [facility] 25 mg 8-05 tablet by [facility] tablet 00:00: mouth [place] 00 every 6 Medical (six) Branch hours as needed for N/V alternatin g with Ondansetro n. HYDROcodone Yes [id number] 1{tbl} Take 1 [facility] -acetaminop 8-05 tablet by [facility] hen 7.5-325 00:00: mouth [place] mg per 00 every 6 Medical tablet (six) Branch hours as needed (Pain scal 7-10). pantoprazol Yes [id number] 40mg Take 1 [facility] 40 mg EC 8-05 tablet by [facility] tablet 00:00: mouth 2 [place] 00 (two) Medical times Branch daily. proMETHazin Yes [id number] 25mg Take 1 [facility] 25 mg 8-05 tablet by [facility] tablet 00:00: mouth [place] 00 every 6 Medical (six) Branch hours as needed for N/V alternatin g with Ondansetro n. HYDROcodone Yes [id number] 1{tbl} Take 1 [facility] -acetaminop 8-05 tablet by [facility] hen 7.5-325 00:00: mouth [place] mg per 00 every 6 Medical tablet (six) Branch hours as needed (Pain scal 7-10). pantoprazol Yes [id number] 40mg Take 1 [facility] 40 mg EC 8-05 tablet by [facility] tablet 00:00: mouth 2 [place] 00 (two) Medical times Branch daily. proMETHazin Yes [id number] 25mg Take 1 [facility] 25 mg 8-05 tablet by [facility] tablet 00:00: mouth [place] 00 every 6 Medical (six) Branch hours as needed for N/V alternatin g with Ondansetro n. HYDROcodone Yes [id number] 1{tbl} Take 1 [facility] -acetaminop 8-05 tablet by [facility] hen 7.5-325 00:00: mouth [place] mg per 00 every 6 Medical tablet (six) Branch hours as needed (Pain scal 7-10). pantoprazol Yes [id number] 40mg Take 1 [facility] 40 mg EC 8-05 tablet by [facility] tablet 00:00: mouth 2 [place] 00 (two) Medical times Branch daily. proMETHazin Yes [id number] 25mg Take 1 [facility] 25 mg 8-05 tablet by [facility] tablet 00:00: mouth [place] 00 every 6 Medical (six) Branch hours as needed for N/V alternatin g with Ondansetro n. HYDROcodone Yes [id number] 1{tbl} Take 1 [facility] -acetaminop 8-05 tablet by [facility] hen 7.5-325 00:00: mouth [place] mg per 00 every 6 Medical tablet (six) Branch hours as needed (Pain scal 7-10). pantoprazol Yes [id number] 40mg Take 1 [facility] 40 mg EC 8-05 tablet by [facility] tablet 00:00: mouth 2 [place] 00 (two) Medical times Branch daily. proMETHazin Yes [id number] 25mg Take 1 [facility] 25 mg 8-05 tablet by [facility] tablet 00:00: mouth [place] 00 every 6 Medical (six) Branch hours as needed for N/V alternatin g with Ondansetro n. HYDROcodone Yes [id number] 1{tbl} Take 1 [facility] -acetaminop 8-05 tablet by [facility] hen 7.5-325 00:00: mouth [place] mg per 00 every 6 Medical tablet (six) Branch hours as needed (Pain scal 7-10). HYDROcodone Yes [id number] 1{tbl} Take 1 [facility] -acetaminop 8-05 tablet by [facility] hen 7.5-325 00:00: mouth [place] mg per 00 every 6 Medical tablet (six) Branch hours as needed (Pain scal 7-10). HYDROcodone Yes [id number] 1{tbl} Take 1 [facility] -acetaminop 8-05 tablet by [facility] hen 7.5-325 00:00: mouth [place] mg per 00 every 6 Medical tablet (six) Branch hours as needed (Pain scal 7-10). HYDROcodone Yes [id number] 1{tbl} Take 1 [facility] -acetaminop 8-05 tablet by [facility] hen 7.5-325 00:00: mouth [place] mg per 00 every 6 Medical tablet (six) Branch hours as needed (Pain scal 7-10). HYDROcodone Yes [id number] 1{tbl} Take 1 [facility] -acetaminop 8-05 tablet by [facility] hen 7.5-325 00:00: mouth [place] mg per 00 every 6 Medical tablet (six) Branch hours as needed (Pain scal 7-10). HYDROcodone Yes [id number] 1{tbl} Take 1 [facility] -acetaminop 8-05 tablet by [facility] hen 7.5-325 00:00: mouth [place] mg per 00 every 6 Medical tablet (six) Branch hours as needed (Pain scal 7-10). HYDROcodone Yes [id number] 1{tbl} Take 1 [facility] -acetaminop 8-05 tablet by [facility] hen 7.5-325 00:00: mouth [place] mg per 00 every 6 Medical tablet (six) Branch hours as needed (Pain scal 7-10). HYDROcodone Yes [id number] 1{tbl} Take 1 [facility] -acetaminop 8-05 tablet by [facility] hen 7.5-325 00:00: mouth [place] mg per 00 every 6 Medical tablet (six) Branch hours as needed (Pain scal 7-10). HYDROcodone Yes [id number] 1{tbl} Take 1 [facility] -acetaminop 8-05 tablet by [facility] hen 7.5-325 00:00: mouth [place] mg per 00 every 6 Medical tablet (six) Branch hours as needed (Pain scal 7-10). HYDROcodone Yes [id number] 1{tbl} Take 1 [facility] -acetaminop 8-05 tablet by [facility] hen 7.5-325 00:00: mouth [place] mg per 00 every 6 Medical tablet (six) Branch hours as needed (Pain scal 7-10). HYDROcodone Yes [id number] 1{tbl} Take 1 [facility] -acetaminop 8-05 tablet by [facility] hen 7.5-325 00:00: mouth [place] mg per 00 every 6 Medical tablet (six) Branch hours as needed (Pain scal 7-10). HYDROcodone Yes [id number] 1{tbl} Take 1 [facility] -acetaminop 8-05 tablet by [facility] hen 7.5-325 00:00: mouth [place] mg per 00 every 6 Medical tablet (six) Branch hours as needed (Pain scal 7-10). HYDROcodone Yes [id number] 1{tbl} Take 1 [facility] -acetaminop 8-05 tablet by [facility] hen 7.5-325 00:00: mouth [place] mg per 00 every 6 Medical tablet (six) Branch hours as needed (Pain scal 7-10). HYDROcodone Yes [id number] 1{tbl} Take 1 [facility] -acetaminop 8-05 tablet by [facility] hen 7.5-325 00:00: mouth [place] mg per 00 every 6 Medical tablet (six) Branch hours as needed (Pain scal 7-10). HYDROcodone Yes [id number] 1{tbl} Take 1 [facility] -acetaminop 8-05 tablet by [facility] hen 7.5-325 00:00: mouth [place] mg per 00 every 6 Medical tablet (six) Branch hours as needed (Pain scal 7-10). HYDROcodone Yes [id number] 1{tbl} Take 1 [facility] -acetaminop 8-05 tablet by [facility] hen 7.5-325 00:00: mouth [place] mg per 00 every 6 Medical tablet (six) Branch hours as needed (Pain scal 7-10). HYDROcodone Yes [id number] 1{tbl} Take 1 [facility] -acetaminop 8-05 tablet by [facility] hen 7.5-325 00:00: mouth [place] mg per 00 every 6 Medical tablet (six) Branch hours as needed (Pain scal 7-10). HYDROcodone Yes [id number] 1{tbl} Take 1 [facility] -acetaminop 8-05 tablet by [facility] hen 7.5-325 00:00: mouth [place] mg per 00 every 6 Medical tablet (six) Branch hours as needed (Pain scal 7-10). HYDROcodone Yes [id number] 1{tbl} Take 1 [facility] -acetaminop 8-05 tablet by [facility] hen 7.5-325 00:00: mouth [place] mg per 00 every 6 Medical tablet (six) Branch hours as needed (Pain scal 7-10). HYDROcodone Yes [id number] 1{tbl} Take 1 [facility] -acetaminop 8-05 tablet by [facility] hen 7.5-325 00:00: mouth [place] mg per 00 every 6 Medical tablet (six) Branch hours as needed (Pain scal 7-10). HYDROcodone Yes [id number] 1{tbl} Take 1 [facility] -acetaminop 8-05 tablet by [facility] hen 7.5-325 00:00: mouth [place] mg per 00 every 6 Medical tablet (six) Branch hours as needed (Pain scal 7-10). HYDROcodone Yes [id number] 1{tbl} Take 1 [facility] -acetaminop 8-05 tablet by [facility] hen 7.5-325 00:00: mouth [place] mg per 00 every 6 Medical tablet (six) Branch hours as needed (Pain scal 7-10). HYDROcodone Yes [id number] 1{tbl} Take 1 [facility] -acetaminop 8-05 tablet by [facility] hen 7.5-325 00:00: mouth [place] mg per 00 every 6 Medical tablet (six) Branch hours as needed (Pain scal 7-10). HYDROcodone Yes [id number] 1{tbl} Take 1 [facility] -acetaminop 8-05 tablet by [facility] hen 7.5-325 00:00: mouth [place] mg per 00 every 6 Medical tablet (six) Branch hours as needed (Pain scal 7-10). HYDROcodone Yes [id number] 1{tbl} Take 1 [facility] -acetaminop 8-05 tablet by [facility] hen 7.5-325 00:00: mouth [place] mg per 00 every 6 Medical tablet (six) Branch hours as needed (Pain scal 7-10). HYDROcodone Yes [id number] 1{tbl} Take 1 [facility] -acetaminop 8-05 tablet by [facility] hen 7.5-325 00:00: mouth [place] mg per 00 every 6 Medical tablet (six) Branch hours as needed (Pain scal 7-10). HYDROcodone Yes [id number] 1{tbl} Take 1 [facility] -acetaminop 8-05 tablet by [facility] hen 7.5-325 00:00: mouth [place] mg per 00 every 6 Medical tablet (six) Branch hours as needed (Pain scal 7-10). HYDROcodone Yes [id number] 1{tbl} Take 1 [facility] -acetaminop 8-05 tablet by [facility] hen 7.5-325 00:00: mouth [place] mg per 00 every 6 Medical tablet (six) Branch hours as needed (Pain scal 7-10). HYDROcodone Yes [id number] 1{tbl} Take 1 [facility] -acetaminop 8-05 tablet by [facility] hen 7.5-325 00:00: mouth [place] mg per 00 every 6 Medical tablet (six) Branch hours as needed (Pain scal 7-10). HYDROcodone Yes [id number] 1{tbl} Take 1 [facility] -acetaminop 8-05 tablet by [facility] hen 7.5-325 00:00: mouth [place] mg per 00 every 6 Medical tablet (six) Branch hours as needed (Pain scal 7-10). HYDROcodone Yes [id number] 1{tbl} Take 1 [facility] -acetaminop 8-05 tablet by [facility] hen 7.5-325 00:00: mouth [place] mg per 00 every 6 Medical tablet (six) Branch hours as needed (Pain scal 7-10). HYDROcodone Yes [id number] 1{tbl} Take 1 [facility] -acetaminop 8-05 tablet by [facility] hen 7.5-325 00:00: mouth [place] mg per 00 every 6 Medical tablet (six) Branch hours as needed (Pain scal 7-10). HYDROcodone Yes [id number] 1{tbl} Take 1 [facility] -acetaminop 8-05 tablet by [facility] hen 7.5-325 00:00: mouth [place] mg per 00 every 6 Medical tablet (six) Branch hours as needed (Pain scal 7-10). HYDROcodone Yes [id number] 1{tbl} Take 1 [facility] -acetaminop 8-05 tablet by [facility] hen 7.5-325 00:00: mouth [place] mg per 00 every 6 Medical tablet (six) Branch hours as needed (Pain scal 7-10). HYDROcodone Yes [id number] 1{tbl} Take 1 [facility] -acetaminop 8-05 tablet by [facility] hen 7.5-325 00:00: mouth [place] mg per 00 every 6 Medical tablet (six) Branch hours as needed (Pain scal 7-10). HYDROcodone Yes [id number] 1{tbl} Take 1 [facility] -acetaminop 8-05 tablet by [facility] hen 7.5-325 00:00: mouth [place] mg per 00 every 6 Medical tablet (six) Branch hours as needed (Pain scal 7-10). HYDROcodone Yes [id number] 1{tbl} Take 1 [facility] -acetaminop 8-05 tablet by [facility] hen 7.5-325 00:00: mouth [place] mg per 00 every 6 Medical tablet (six) Branch hours as needed (Pain scal 7-10). HYDROcodone Yes [id number] 1{tbl} Take 1 [facility] -acetaminop 8-05 tablet by [facility] hen 7.5-325 00:00: mouth [place] mg per 00 every 6 Medical tablet (six) Branch hours as needed (Pain scal 7-10). pantoprazol Yes [id number] 40mg Take 1 [facility] 40 mg EC 8-05 tablet by [facility] tablet 00:00: mouth 2 [place] 00 (two) Medical times Branch daily. ondansetron Yes [id number] 4mg Take 1 [facility] 4 mg tablet 8-05 tablet by [facility] of 00:00: mouth [place] 00 every 8 Medical (eight) Branch hours as needed for Nausea and Vomiting (N/V). proMETHazin 2018- Yes [id number] 25mg Take 1 [facility] 25 mg 8-05 tablet by [facility] tablet 00:00: mouth [place] 00 every 6 Medical (six) Branch hours as needed for N/V alternatin g with Ondansetro n. HYDROcodone Yes [id number] 1{tbl} Take 1 [facility] -acetaminop 8-05 tablet by [facility] hen 7.5-325 00:00: mouth [place] mg per 00 every 6 Medical tablet (six) Branch hours as needed (Pain scal 7-10). pantoprazol 2018- Yes [id number] 40mg Take 1 [facility] 40 mg EC 8-05 tablet by [facility] tablet 00:00: mouth 2 [place] 00 (two) Medical times Branch daily. ondansetron 2019- Yes [id number] 4mg Take 1 [facility] 4 mg tablet 8-05 tablet by [facility] of 00:00: mouth [place] 00 every 8 Medical (eight) Branch hours as needed for Nausea and Vomiting (N/V). proMETHazin 2019- Yes [id number] 25mg Take 1 [facility] 25 mg 8-05 tablet by [facility] tablet 00:00: mouth [place] 00 every 6 Medical (six) Branch hours as needed for N/V alternatin g with Ondansetro n. HYDROcodone 2019- Yes [id number] 1{tbl} Take 1 [facility] -acetaminop 8-05 tablet by [facility] hen 7.5-325 00:00: mouth [place] mg per 00 every 6 Medical tablet (six) Branch hours as needed (Pain scal 7-10). pantoprazol 2018- Yes [id number] 40mg Take 1 [facility] 40 mg EC 8-05 tablet by [facility] tablet 00:00: mouth 2 (two) Medical times Branch daily. ondansetron 2018- Yes [id number] 4mg Take 1 [facility] 4 mg tablet 8-05 tablet by [facility] of 00:00: mouth [place] 00 every 8 Medical (eight) Branch hours as needed for Nausea and Vomiting (N/V). proMETHazin 2019- Yes [id number] 25mg Take 1 [facility] 25 mg 8-05 tablet by [facility] tablet 00:00: mouth [place] 00 every 6 Medical (six) Branch hours as needed for N/V alternatin g with Ondansetro n. HYDROcodone 2018- Yes [id number] 1{tbl} Take 1 [facility] -acetaminop 8-05 tablet by [facility] hen 7.5-325 00:00: mouth [place] mg per 00 every 6 Medical tablet (six) Branch hours as needed (Pain scal 7-10). pantoprazol 2019-0 Yes [id number] 40mg Take 1 [facility] 40 mg EC 8-05 tablet by [facility] tablet 00:00: mouth 2 00 (two) Medical times Branch daily. ondansetron 2019- Yes [id number] 4mg Take 1 [facility] 4 mg tablet 8-05 tablet by [facility] of 00:00: mouth [place] 00 every 8 Medical (eight) Branch hours as needed for Nausea and Vomiting (N/V). proMETHazin 2019- Yes [id number] 25mg Take 1 [facility] 25 mg 8-05 tablet by [facility] tablet 00:00: mouth [place] 00 every 6 Medical (six) Branch hours as needed for N/V alternatin g with Ondansetro n. HYDROcodone 2018- Yes [id number] 1{tbl} Take 1 [facility] -acetaminop 8-05 tablet by [facility] hen 7.5-325 00:00: mouth [place] mg per 00 every 6 Medical tablet (six) Branch hours as needed (Pain scal 7-10). pantoprazol Yes [id number] 40mg Take 1 [facility] 40 mg EC 8-05 tablet by [facility] tablet 00:00: mouth 2 [place] 00 (two) Medical times Branch daily. ondansetron 2018- Yes [id number] 4mg Take 1 [facility] 4 mg tablet 8-05 tablet by [facility] of 00:00: mouth [place] 00 every 8 Medical (eight) Branch hours as needed for Nausea and Vomiting (N/V). proMETHazin Yes [id number] 25mg Take 1 [facility] 25 mg 8-05 tablet by [facility] tablet 00:00: mouth [place] 00 every 6 Medical (six) Branch hours as needed for N/V alternatin g with Ondansetro n. HYDROcodone Yes [id number] 1{tbl} Take 1 [facility] -acetaminop 8-05 tablet by [facility] hen 7.5-325 00:00: mouth [place] mg per 00 every 6 Medical tablet (six) Branch hours as needed (Pain scal 7-10). pantoprazol 2018- Yes [id number] 40mg Take 1 [facility] 40 mg EC 8-05 tablet by [facility] tablet 00:00: mouth 2 [place] 00 (two) Medical times Branch daily. ondansetron 2018- Yes [id number] 4mg Take 1 [facility] 4 mg tablet 8-05 tablet by [facility] of 00:00: mouth [place] 00 every 8 Medical (eight) Branch hours as needed for Nausea and Vomiting (N/V). proMETHazin 2018- Yes [id number] 25mg Take 1 [facility] 25 mg 8-05 tablet by [facility] tablet 00:00: mouth [place] 00 every 6 Medical (six) Branch hours as needed for N/V alternatin g with Ondansetro n. HYDROcodone Yes [id number] 1{tbl} Take 1 [facility] -acetaminop 8-05 tablet by [facility] hen 7.5-325 00:00: mouth [place] mg per 00 every 6 Medical tablet (six) Branch hours as needed (Pain scal 7-10). pantoprazol Yes [id number] 40mg Take 1 [facility] 40 mg EC 8-05 tablet by [facility] tablet 00:00: mouth 2 [place] 00 (two) Medical times Branch daily. ondansetron Yes [id number] 4mg Take 1 [facility] 4 mg tablet 8-05 tablet by [facility] of 00:00: mouth [place] 00 every 8 Medical (eight) Branch hours as needed for Nausea and Vomiting (N/V). proMETHazin Yes [id number] 25mg Take 1 [facility] 25 mg 8-05 tablet by [facility] tablet 00:00: mouth [place] 00 every 6 Medical (six) Branch hours as needed for N/V alternatin g with Ondansetro n. HYDROcodone Yes [id number] 1{tbl} Take 1 [facility] -acetaminop 8-05 tablet by [facility] hen 7.5-325 00:00: mouth [place] mg per 00 every 6 Medical tablet (six) Branch hours as needed (Pain scal 7-10). pantoprazol Yes [id number] 40mg Take 1 [facility] 40 mg EC 8-05 tablet by [facility] tablet 00:00: mouth 2 [place] 00 (two) Medical times Branch daily. ondansetron Yes [id number] 4mg Take 1 [facility] 4 mg tablet 8-05 tablet by [facility] of 00:00: mouth [place] 00 every 8 Medical (eight) Branch hours as needed for Nausea and Vomiting (N/V). proMETHazin 2019- Yes [id number] 25mg Take 1 [facility] 25 mg 8-05 tablet by [facility] tablet 00:00: mouth [place] 00 every 6 Medical (six) Branch hours as needed for N/V alternatin g with Ondansetro n. HYDROcodone Yes [id number] 1{tbl} Take 1 [facility] -acetaminop 8-05 tablet by [facility] hen 7.5-325 00:00: mouth [place] mg per 00 every 6 Medical tablet (six) Branch hours as needed (Pain scal 7-10). pantoprazol 2018- Yes [id number] 40mg Take 1 [facility] 40 mg EC 8-05 tablet by [facility] tablet 00:00: mouth 2 [place] 00 (two) Medical times Branch daily. ondansetron 2018- Yes [id number] 4mg Take 1 [facility] 4 mg tablet 8-05 tablet by [facility] of 00:00: mouth [place] 00 every 8 Medical (eight) Branch hours as needed for Nausea and Vomiting (N/V). proMETHazin 2018- Yes [id number] 25mg Take 1 [facility] 25 mg 8-05 tablet by [facility] tablet 00:00: mouth [place] 00 every 6 Medical (six) Branch hours as needed for N/V alternatin g with Ondansetro n. HYDROcodone 2018- Yes [id number] 1{tbl} Take 1 [facility] -acetaminop 8-05 tablet by [facility] hen 7.5-325 00:00: mouth [place] mg per 00 every 6 Medical tablet (six) Branch hours as needed (Pain scal 7-10). pantoprazol Yes [id number] 40mg Take 1 [facility] 40 mg EC 8-05 tablet by [facility] tablet 00:00: mouth 2 [place] 00 (two) Medical times Branch daily. ondansetron Yes [id number] 4mg Take 1 [facility] 4 mg tablet 8-05 tablet by [facility] 00:00: mouth [place] 00 every 8 Medical (eight) Branch hours as needed for Nausea and Vomiting (N/V). proMETHazin 2018- Yes [id number] 25mg Take 1 [facility] 25 mg 8-05 tablet by [facility] tablet 00:00: mouth [place] 00 every 6 Medical (six) Branch hours as needed for N/V alternatin g with Ondansetro n. HYDROcodone 2019-0 Yes [id number] 1{tbl} Take 1 [facility] -acetaminop 8-05 tablet by [facility] hen 7.5-325 00:00: mouth [place] mg per 00 every 6 Medical tablet (six) Branch hours as needed (Pain scal 7-10). pantoprazol 2018- Yes [id number] 40mg Take 1 [facility] 40 mg EC 8-05 tablet by [facility] tablet 00:00: mouth 2 [place] 00 (two) Medical times Branch daily. ondansetron 2019- Yes [id number] 4mg Take 1 [facility] 4 mg tablet 8-05 tablet by [facility] of 00:00: mouth [place] 00 every 8 Medical (eight) Branch hours as needed for Nausea and Vomiting (N/V). proMETHazin 2019- Yes [id number] 25mg Take 1 [facility] 25 mg 8-05 tablet by [facility] tablet 00:00: mouth [place] 00 every 6 Medical (six) Branch hours as needed for N/V alternatin g with Ondansetro n. HYDROcodone 2018- Yes [id number] 1{tbl} Take 1 [facility] -acetaminop 8-05 tablet by [facility] hen 7.5-325 00:00: mouth [place] mg per 00 every 6 Medical tablet (six) Branch hours as needed (Pain scal 7-10). pantoprazol 2018- Yes [id number] 40mg Take 1 [facility] 40 mg EC 8-05 tablet by [facility] tablet 00:00: mouth 2 [place] 00 (two) Medical times Branch daily. ondansetron Yes [id number] 4mg Take 1 [facility] 4 mg tablet 8-05 tablet by [facility] of 00:00: mouth [place] 00 every 8 Medical (eight) Branch hours as needed for Nausea and Vomiting (N/V). proMETHazin 2018- Yes [id number] 25mg Take 1 [facility] 25 mg 8-05 tablet by [facility] tablet 00:00: mouth [place] 00 every 6 Medical (six) Branch hours as needed for N/V alternatin g with Ondansetro n. HYDROcodone 2018- Yes [id number] 1{tbl} Take 1 [facility] -acetaminop 8-05 tablet by [facility] hen 7.5-325 00:00: mouth [place] mg per 00 every 6 Medical tablet (six) Branch hours as needed (Pain scal 7-10). pantoprazol 2019-0 Yes [id number] 40mg Take 1 [facility] 40 mg EC 8-05 tablet by [facility] tablet 00:00: mouth 2 [place] 00 (two) Medical times Branch daily. ondansetron 2019- Yes [id number] 4mg Take 1 [facility] 4 mg tablet 8-05 tablet by [facility] of 00:00: mouth [place] 00 every 8 Medical (eight) Branch hours as needed for Nausea and Vomiting (N/V). proMETHazin 2019- Yes [id number] 25mg Take 1 [facility] 25 mg 8-05 tablet by [facility] tablet 00:00: mouth [place] 00 every 6 Medical (six) Branch hours as needed for N/V alternatin g with Ondansetro n. HYDROcodone 2018- Yes [id number] 1{tbl} Take 1 [facility] -acetaminop 8-05 tablet by [facility] hen 7.5-325 00:00: mouth [place] mg per 00 every 6 Medical tablet (six) Branch hours as needed (Pain scal 7-10). pantoprazol 2018- Yes [id number] 40mg Take 1 [facility] 40 mg EC 8-05 tablet by [facility] tablet 00:00: mouth 2 [place] 00 (two) Medical times Branch daily. ondansetron 2018- Yes [id number] 4mg Take 1 [facility] 4 mg tablet 8-05 tablet by [facility] of 00:00: mouth [place] 00 every 8 Medical (eight) Branch hours as needed for Nausea and Vomiting (N/V). proMETHazin Yes [id number] 25mg Take 1 [facility] 25 mg 8-05 tablet by [facility] tablet 00:00: mouth [place] 00 every 6 Medical (six) Branch hours as needed for N/V alternatin g with Ondansetro n. HYDROcodone 2018- Yes [id number] 1{tbl} Take 1 [facility] -acetaminop 8-05 tablet by [facility] hen 7.5-325 00:00: mouth [place] mg per 00 every 6 Medical tablet (six) Branch hours as needed (Pain scal 7-10). pantoprazol 2018- Yes [id number] 40mg Take 1 [facility] 40 mg EC 8-05 tablet by [facility] tablet 00:00: mouth 2 [place] 00 (two) Medical times Branch daily. ondansetron 2018-0 Yes [id number] 4mg Take 1 [facility] 4 mg tablet 8-05 tablet by [facility] of 00:00: mouth [place] 00 every 8 Medical (eight) Branch hours as needed for Nausea and Vomiting (N/V). proMETHazin 2018- Yes [id number] 25mg Take 1 [facility] 25 mg 8-05 tablet by [facility] tablet 00:00: mouth [place] 00 every 6 Medical (six) Branch hours as needed for N/V alternatin g with Ondansetro n. HYDROcodone 2018- Yes [id number] 1{tbl} Take 1 [facility] -acetaminop 8-05 tablet by [facility] hen 7.5-325 00:00: mouth [place] mg per 00 every 6 Medical tablet (six) Branch hours as needed (Pain scal 7-10). pantoprazol Yes [id number] 40mg Take 1 [facility] 40 mg EC 8-05 tablet by [facility] tablet 00:00: mouth 2 [place] 00 (two) Medical times Branch daily. proMETHazin Yes [id number] 25mg Take 1 [facility] 25 mg 8-05 tablet by [facility] tablet 00:00: mouth [place] 00 every 6 Medical (six) Branch hours as needed for N/V alternatin g with Ondansetro n. HYDROcodone Yes [id number] 1{tbl} Take 1 [facility] -acetaminop 8-05 tablet by [facility] hen 7.5-325 00:00: mouth [place] mg per 00 every 6 Medical tablet (six) Branch hours as needed (Pain scal 7-10). pantoprazol Yes [id number] 40mg Take 1 [facility] 40 mg EC 8-05 tablet by [facility] tablet 00:00: mouth 2 [place] 00 (two) Medical times Branch daily. proMETHazin Yes [id number] 25mg Take 1 [facility] 25 mg 8-05 tablet by [facility] tablet 00:00: mouth [place] 00 every 6 Medical (six) Branch hours as needed for N/V alternatin g with Ondansetro n. HYDROcodone Yes [id number] 1{tbl} Take 1 [facility] -acetaminop 8-05 tablet by [facility] hen 7.5-325 00:00: mouth [place] mg per 00 every 6 Medical tablet (six) Branch hours as needed (Pain scal 7-10). pantoprazol Yes [id number] 40mg Take 1 [facility] 40 mg EC 8-05 tablet by [facility] tablet 00:00: mouth 2 [place] 00 (two) Medical times Branch daily. proMETHazin 2018- Yes [id number] 25mg Take 1 [facility] 25 mg 8-05 tablet by [facility] tablet 00:00: mouth [place] 00 every 6 Medical (six) Branch hours as needed for N/V alternatin g with Ondansetro n. HYDROcodone Yes [id number] 1{tbl} Take 1 [facility] -acetaminop 8-05 tablet by ity of hen 7.5-325 00:00: mouth [place] mg per 00 every 6 Medical tablet (six) Branch hours as needed (Pain scal 7-10). pantoprazol Yes [id number] 40mg Take 1 Univers e 40 mg EC 8-05 tablet by ity of tablet 00:00: mouth 2 [place] 00 (two) Medical times Branch daily. proMETHazin Yes [id number] 25mg Take 1 Univers e 25 mg 8-05 tablet by ity of tablet 00:00: mouth [place] 00 every 6 Medical (six) Branch hours as needed for N/V alternatin g with Ondansetro n. HYDROcodone Yes [id number] 1{tbl} Take 1 Univers -acetaminop 8-05 tablet by ity of hen 7.5-325 00:00: mouth [place] mg per 00 every 6 Medical tablet (six) Branch hours as needed (Pain scal 7-10). pantoprazol Yes [id number] 40mg Take 1 Univers e 40 mg EC 8-05 tablet by ity of tablet 00:00: mouth 2 [place] 00 (two) Medical times Branch daily. proMETHazin Yes [id number] 25mg Take 1 Univers e 25 mg 8-05 tablet by ity of tablet 00:00: mouth [place] 00 every 6 Medical (six) Branch hours as needed for N/V alternatin g with Ondansetro n. HYDROcodone Yes [id number] 1{tbl} Take 1 [facility] -acetaminop 8-05 tablet by ity of hen 7.5-325 00:00: mouth [place] mg per 00 every 6 Medical tablet (six) Branch hours as needed (Pain scal 7-10). HYDROcodone 2021- No [id number] 1{tbl} Take 1 [facility] -acetaminop 8-05 05-27 tablet by it y of hen 7.5-325 00:00: 00:[place] per 00 :00 every 6 Medical tablet (six) Branch hours as needed (Pain scal 7-10). pantoprazol 2020- No [id number] 40mg Take 1 Univers e 40 mg EC 8- 04-05 tablet by ity of tablet 00:00: 00:00 mouth 2 [place] 00 :00 (two) Medical times Branch daily. proMETHazin 2020- No [id number] 25mg Take 1 Univers e 25 mg 8-05 04-05 tablet by ity of tablet 00:00: 00:00 mouth [place] 00 :00 every 6 Medical (six) Branch hours as needed for N/V alternatin g with Ondansetro n. pantoprazol 2020- No [id number] 40mg Take 1 Univers e 40 mg EC 8- 04-05 tablet by ity of tablet 00:00: 00:00 mouth 2 [place] 00 :00 (two) Medical times Branch daily. proMETHazin 2020- No [id number] 25mg Take 1 Univers e 25 mg 8-05 04-05 tablet by ity of tablet 00:00: 00:00 mouth [place] 00 :00 every 6 Medical (six) Branch hours as needed for N/V alternatin g with Ondansetro n. HYDROcodone 2018- Yes 1{tbl} 1 tablet, Univers -acetaminop 8- Oral, ity of hen (NORCO) 19:23: Q6HPRN, Archie as 10-325 mg 44 Starting Medica l tablet 1 [place] 11/16/18 Bran h tablet at 1423, Until Discontinu ed, Routine, Pain (scale 4-6), Pain (scale 7-10) citalopram 2018- Yes 10mg 10 mg, Unive rs (CELEXA) 8-04 Oral, ity of tablet 10 14:00: DAILY, [place] mg 00 First dose Medical on [facility] 11/16/18 at 0900, Until Discontinu ed, Routine losartan Yes 100mg 100 mg, Unive rs (COZAAR) 8-04 Oral, ity of tablet 100 14:00: DAILY, [place] mg 00 First dose Medical on [facility] 11/16/18 at 0900, Until Discontinu ed lipase-prot 2018- Yes 3{capsu 3 capsule, Univers ease-amylas 8-04 le} Oral, TID ity of e (CREON) 13:00: MEALS, [place] 12,000-38,0 00 First dose Me dical 00 -60,000 on [facility] unit 11/16/18 at capsule 3 0800, capsule Until Discontinu ed FENTanyl PF 2019- No 25ug 25 mcg, Un you (SUBLIMAZE 11-16 Slow IV ity o f (PF)) 12:38: 19:23 Push, [place] injection 00 :28 Q6HPRN, Medical 25 mcg Starting [facility] 11/16/18 at 0738, Until [place] 11/16/18 at 1423, Routine, Pain (scale 7-10) baclofen Yes 10mg 10 mg, Univers (LIORESAL) 8 Oral, TID, ity of tablet 10 05:45: [place] 00 on [facility] 11/16/18 at Branch 0045, Until Discontinu ed, Routine QUEtiapine Yes 100mg 100 mg, Uni vers (SEROQUEL) 8- Oral, QHS, ity of tablet 100 02:00: [place] 00 on [facility] 11/15/18 at Branch 2100, Until Discontinu ed, Routine divalproex Yes 125mg 125 mg, Uni vers (DEPAKOTE) 8- Oral, QHS, ity of EC tablet 02:00: [place] 125 mg 00 on [facility] 11/15/18 at Branch 2100, Until Discontinu ed, Routine proMETHazin 2019- No 25mg 25 mg, Uni vers e 11-16- Oral, ity of (PHENERGAN) 01:15: 00:46 ONCE, 1 [place] tablet 25 00 :00 dose, Sat Medic al mg 11/15/18 at Branch 2015, Routine gabapentin 2018- Yes 300mg 300 mg, Uni vers (NEURONTIN) 8- Oral, BID, it y of capsule 300 01:00: First dose [place] mg 00 on [facility] 11/15/18 at Branch 2000, Until Discontinu ed, [...] Branch needed. ALPRAZOLAM 2019- No Take by Uni vers ORAL 11-15 [...] Sat Medica l NaCl 0.9% 11/15/18 at [facility] h (NS) 20 mL 1330, [...] Sat Medica l mg(2.5 mg 11/15/18 at Branc h base)/3 mL 1130, [place] nebulizer solution [...] at Branch 1045, [place] traMADol 2019- No [id number] 50mg Take 1 Univers (ULTRAM) 50 10-31 [...] 3 ity o f 000- 00:00: (three) [place] 180,000 00 times Medical unit CpDR daily [...] 3 ity o f 000- 00:00: (three) [place] 180,000 00 times Medical unit CpDR daily with Bran ch meals. CREON 2018-0 Yes Take by Univers 36,000-114, 7-11 mouth 3 ity o f 000- 00:00: (three) [place] 180,000 00 times Medical unit CpDR daily with Bran ch meals. CREON 2018-0 Yes Take by Univers 36,000-114, 7-11 mouth 3 ity o f 000- 00:00: (three) [place] 180,000 00 times Medical unit CpDR daily [...] 3 ity o f 000- 00:00: (three) [place] 180,000 00 times Medical unit CpDR daily [...] 3 ity o f 000- 00:00: (three) [place] 180,000 00 times Medical unit CpDR daily [...] 3 ity o f 000- 00:00: (three) [place] 180,000 00 times Medical unit CpDR daily with Bran ch meals. CREON 2020- No Take by Univers 36,000-114, 7-11 04-05 mouth 3 ity of 000- 00:00: 00:00 (three) [place] 180,000 00 :00 times Medical unit CpDR daily with Bran ch meals. CREON 2020- No Take by Univers 36,000-114, 7-11 04-05 mouth 3 ity of 000- 00:00: 00:00 (three) [place] 180,000 00 :00 times Medical unit CpDR daily with Bran ch meals. dicyclomine 2019- No [id number] 20mg Take 1 [facility] (BENTYL) 20 09-09- tablet by it y of mg tablet 00:00: 00:00 [place] 4 [place] :[place] (four) Medical times Branch daily as needed for Abdominal pain. ondansetron 2019- No [id number] 4mg Take 1 [facility] (ZOFRAN) 4 09-09- tablet by ity of mg tablet 00:00: 00:00 mouth [place] 00 :00 every 8 Medical (eight) Branch hours as needed for Nausea and Vomiting (N/V). amLODIPine 2019- No [id number] 5mg Take 2 Univers 2.5 mg 07-21-03 tablets by ity of tablet 00:00: 00:00 mouth at [place] 00 :00 bedtime. Medical Branch proMETHazin 2019- No [id number] 25mg Take 1 Univers e 25 mg [...] 20mg Take 1 Uni vers (BENTYL) 20 -06 20- tablet by it y of mg [...] 1 tablet Common Potassium Potassium Spiri t [facility] Lexapro Lexapro Yes [place] 1 tablet Co mmon [facility] Seroquel XR Seroquel XR Yes [place] 1 tablet Common in the [facility] evening [facility] Phenergan Phenergan Yes [place] one tablet Common [facility] Doxycycline Doxycycline Yes [place] 1 capsule Common Hyclate Hyclate [facility] Azithromyci Azithromyci Yes [place] 2 tablets Common n n on the [facility] first day, [facility] [address] [facility] daily for Medical 4 days Center Robaxin-750 Robaxin-750 Yes [place] 1 tablet Common [facility] Flonase Flonase Yes [place] 2 spray in Common each [facility] nostril - [facility] Diazepam Diazepam Yes [place] 1 tablet Common as needed [facility] PredniSONE PredniSONE Yes [place] 2 tablet Common daily x 5 [facility] days then - [facility] one tablet [facility] daily x 5 [facility] Gabapentin Gabapentin Yes [place] 1 capsule Common [facility] Losartan Losartan Yes [place] TAKE 1 Co mmon Potassium Potassium TABLET BY [facility] MOUTH - [facility] EVERY DAY [facility] Losartan Losartan No 1{table QD Losartan Potassium [...] MG 300 MG tiZANidine tiZANidine No 1{table BID tiZANidine HCl 2 MG HCl 2 MG t_as_ne HCl 2 MG eded} Losartan Losartan No 1{table QD Losartan Potassium Potassium t} Potassium 100 MG 100 MG 100 MG Carvedilol Carvedilol No 1{table BID Carvedilol 12.5 MG 12.5 MG t_with_ 12.5 MG food} Gabapentin Gabapentin No Gabapentin 300 MG 300 MG 300 MG Promethazin Promethazin No BID Promethazi e [...] MG MG 7.5-325 MG tiZANidine tiZANidine No BID tiZANidine HCl 2 MG HCl 2 MG HCl 2 MG tiZANidine tiZANidine 2022- No 1{table BID tiZANidine HCl 2 MG HCl 2 MG - t_as_ne HCl 2 MG 00:00 eded} :00 tiZANidine tiZANidine 2023- No 1{table BID tiZANidine HCl 2 MG HCl 2 MG 04-22 t_as_ne HCl 2 MG 00:00 eded} :00 tiZANidine tiZANidine 2023- No 1{table BID tiZANidine HCl 2 MG HCl 2 MG - t_as_ne HCl 2 MG 00:00 eded} :00 tiZANidine tiZANidine 3- No 1{table BID tiZANidine HCl 2 MG HCl 2 MG 04-22 t_as_ne HCl 2 MG 00:00 eded} :00 tiZANidine tiZANidine 3- No 1{table BID tiZANidine HCl 2 MG HCl 2 MG 04-22 t_as_ne HCl 2 MG 00:00 eded} :00 tiZANidine tiZANidine 2- No BID tiZANidine HCl 2 MG HCl 2 MG 12-13 HCl 2 MG 00:00 :00 Immunizations Ordered Filled Immunization Date Status Comments [facility] Immunization Name Name Flucelvax - Flucelvax - 2021-04-03 Completed Common Spiri t - multidose vial multidose vial 10:16:00 [facility] Flucelvax - Flucelvax - 2021-04-03 Completed Common Spiri t - multidose vial multidose vial 10:16:00 [facility] Flucelvax - Flucelvax - 2021-04-03 Completed Common Spiri t - multidose vial multidose vial 10:16:00 [facility] Flucelvax - Flucelvax - 2021-04-03 Completed Common Spiri t - multidose vial multidose vial 10:16:00 [facility] Flucelvax - Flucelvax - 2021-04-03 Completed Common Spiri t - multidose vial multidose vial 10:16:00 [facility] Flucelvax - Flucelvax - 2021-04-03 Completed Common Spiri t - multidose vial multidose vial 10:16:00 [facility] Flucelvax - Flucelvax - 2021-04-03 Completed Common Spiri t - multidose vial multidose vial 10:16:00 [facility] Flucelvax - Flucelvax - 2021-04-03 Completed Common Spiri t - multidose vial multidose vial 10:16:00 [facility] Flucelvax - Flucelvax - 2021-04-03 Completed Common Spiri t - multidose vial multidose vial 10:16:00 [facility] Flucelvax - Flucelvax - 2021-04-03 Completed Common Spiri t - multidose vial multidose vial 10:16:00 [facility] Flucelvax - Flucelvax - 2021-04-03 Completed Common Spiri t - multidose vial multidose vial 10:16:00 [facility] Flucelvax - Flucelvax - 2021-04-03 Completed Common Spiri t - multidose vial multidose vial 10:16:00 [facility] Flucelvax - Flucelvax - 2021-04-03 Completed Common Spiri t - multidose vial multidose vial 10:16:00 [facility] Flucelvax - Flucelvax - 2021-04-03 Completed Common Spiri t - multidose vial multidose vial 10:16:00 [facility] Flucelvax - Flucelvax - 2021-04-03 Completed Common Spiri t - multidose vial multidose vial 10:16:00 [facility] Flucelvax - Flucelvax - 2021-04-03 Completed Common Spiri t - multidose vial multidose vial 10:16:00 [facility] Flucelvax - Flucelvax - 2021-04-03 Completed Common Spiri t - multidose vial multidose vial 10:16:00 [facility] Flucelvax - Flucelvax - 2021-04-03 Completed Common Spiri t - multidose vial multidose vial 10:16:00 [facility] Flucelvax - Flucelvax - 2021-04-03 Completed Common Spiri t - multidose vial multidose vial 10:16:00 [facility] Flucelvax - Flucelvax - 2021-04-03 Completed Common Spiri t - multidose vial multidose vial 10:16:00 [facility] Flucelvax - Flucelvax - 2021-04-03 Completed Common Spiri t - multidose vial multidose vial 10:16:00 [facility] Flucelvax - Flucelvax - 2021-04-03 Completed Common Spiri t - multidose vial multidose vial 10:16:00 [facility] Flucelvax - Flucelvax - 2021-04-03 Completed Common Spiri t - multidose vial multidose vial 10:16:00 [facility] Flucelvax - Flucelvax - 2021-04-03 Completed Common Spiri t - multidose vial multidose vial 10:16:00 [facility] Flucelvax - Flucelvax - 2021-04-03 Completed Common Spiri t - multidose vial multidose vial 10:16:00 [facility] Flucelvax - Flucelvax - 2021-04-03 Completed Common Spiri t - multidose vial multidose vial 10:16:00 [facility] Flucelvax - Flucelvax - 2021-04-03 Completed Common Spiri t - multidose vial multidose vial 10:16:00 [facility] Flucelvax - Flucelvax - 2021-04-03 Completed Common Spiri t - multidose vial multidose vial 10:16:00 [facility] Flucelvax - Flucelvax - 2021-04-03 Completed Common Spiri t - multidose vial multidose vial 10:16:00 [facility] Flucelvax - Flucelvax - 2021-04-03 Completed Common Spiri t - multidose vial multidose vial 10:16:00 [facility] Flu Injectable MDCK 2021-04-03 Completed Unive rsity of Quadrivalent 00:00:00 [place] [facility] Branch Flu Injectable MDCK 2021-04-03 Completed Unive rsity of Quadrivalent 00:00:00 [place] [facility] Branch Flu Injectable MDCK 2021-04-03 Completed Unive rsity of Quadrivalent 00:00:00 [place] [facility] Branch Flu Injectable MDCK 2021-04-03 Completed Unive rsity of Quadrivalent 00:00:00 [facility] Flu Inject[facility] MDCK 2021-04-03 Completed Unive rsity of Quadrivalent 00:00:00 [facility] SARS-COV-2 COVID-19 2021-03-25 Completed Unive rsity of MODERNA BOOSTER 00:00:00 [place] Med ical VACCINE Branch SARS-COV-2 COVID-19 2021-03-25 Completed Unive rsity of MODERNA BOOSTER 00:00:00 [place] Med ical VACCINE Branch SARS-COV-2 COVID-19 2021-03-25 Completed Unive rsity of MODERNA BOOSTER 00:00:00 [place] Med ical VACCINE Branch SARS-COV-2 COVID-19 2021-03-25 Completed Unive rsity of MODERNA BOOSTER 00:00:00 [place] Med ical VACCINE Branch SARS-COV-2 COVID-19 2021-03-25 [...] Unive rsity of MODERNA VACCINE 00:00:00 [place] [facility] ical Branch SARS-COV-2 COVID-19 2020-07-19 Completed Unive [...] Unive rsity of MODERNA VACCINE 00:00:00 [place] [facility] ical Branch SARS-COV-2 COVID-19 2020-05-22 Completed Unive rsity of MODERNA VACCINE 00:00:00 [place] [facility] ical Branch SARS-COV-2 COVID-19 2020-05-22 Completed Unive rsity of MODERNA VACCINE 00:00:00 [place] [facility] ical Branch SARS-COV-2 COVID-19 2020-05-22 Completed Unive rsity of MODERNA VACCINE 00:00:00 [place] [facility] ical Branch SARS-COV-2 COVID-19 2020-05-22 Completed Unive rsity of MODERNA VACCINE 00:00:00 [place] [facility] ical Branch SARS-COV-2 COVID-19 2020-05-22 Completed Unive rsity of MODERNA VACCINE 00:00:00 [place] [facility] ical Branch SARS-COV-2 COVID-19 2020-05-22 Completed Unive rsity of MODERNA VACCINE 00:00:00 [place] [facility] ical Branch SARS-COV-2 COVID-19 2020-05-22 Completed Unive rsity of MODERNA 12+ YRS 00:00:00 [place] Med ical VACCINE Branch SARS-COV-2 COVID-19 2020-05-22 Completed Unive rsity of MODERNA 12+ YRS 00:00:00 [place] [facility] ical VACCINE Branch SARS-COV-2 COVID-19 2020-05-22 Completed Unive rsity of MODERNA 12+ YRS 00:00:00 [place] [facility] ical VACCINE Branch SARS-COV-2 COVID-19 2020-05-22 Completed Unive rsity of MODERNA 12+ YRS 00:00:00 [facility] ical VACCINE Branch SARS-COV-2 COVID-19 2020-05-22 Completed Unive rsity of MODERNA 12+ YRS 00:00:00 [facility] ical VACCINE Branch SARS-COV-2 COVID-19 2020-05-22 Completed Unive rsity of MODERNA 12+ YRS 00:00:00 [facility] VACC[facility] Branch SARS-COV-2 COVID-19 2020-05-22 Completed Unive rsity of MODERNA 12+ YRS 00:00:00 [facility] ical VACCINE Branch SARS-COV-2 COVID-19 2020-05-22 Completed Unive rsity of MODERNA 12+ YRS 00:00:00 [facility] ical VACCINE Branch SARS-COV-2 COVID-19 2020-05-22 Completed Unive rsity of MODERNA 12+ YRS 00:00:00 [facility] VACCINE Branch SARS-COV-2 COVID-19 2020-05-22 Completed Unive rsity of MODERNA 12+ YRS 00:00:00 [facility] VACCINE Branch SARS-COV-2 COVID-19 2020-05-22 Completed Unive rsity of MODERNA 12+ YRS 00:00:00 [facility] VACCINE Branch Influenza TIV (IM) 2013-02-[address] [facility] 00:00:00 [facility] Influenza TIV (IM) 2013-02-[address] [facility] 00:00:00 [facility] Influenza TIV (IM) 2013-02-[address] [facility] 00:00:00 [facility] Influenza TIV (IM) 2013-02-[address] [facility] 00:00:00 [facility] Influenza TIV (IM) 2013-02-[address] [facility] 00:00:00 [facility] Influenza TIV (IM) 2013-02-[address] [facility] 00:00:00 [facility] Influenza TIV (IM) 2013-02-[address] [facility] 00:00:00 [facility] Influenza Virus 2013-02-27 Completed Universit y of Vaccine 00:00:00 [facility] Influenza Virus 2013-02-27 Completed Universit y of Vaccine 00:00:00 [facility] Influenza Virus 2013-02-27 Completed Universit y of Vaccine 00:00:00 [facility] Influenza Virus 2013-02-27 Completed Universit y of Vaccine 00:00:00 [facility] Influenza Virus 2013-02-27 Completed Universit y of Vaccine 00:00:00 [facility] Influenza Virus 2013-02-27 Completed Universit y of Vaccine 00:00:00 [facility] Influenza Virus 2013-02-27 Completed Universit y of Vaccine 00:00:00 [facility] Influenza Virus 2013-02-27 Completed Universit y of Vaccine 00:00:00 [facility] Influenza Virus 2013-02-27 Completed Universit y of Vaccine 00:00:00 [facility] Influenza Virus 2013-02-27 Completed Universit y of Vaccine 00:00:00 [facility] Influenza Virus 2013-02-27 Completed Universit y of Vaccine 00:00:00 [facility] Influenza Virus 2013-02-27 Completed Universit y of Vaccine 00:00:00 [facility] Influenza Virus 2013-02-27 Completed Universit y of Vaccine 00:00:00 [facility] Influenza Virus 2013-02-27 Completed Universit y of Vaccine 00:00:00 [facility] Influenza Virus 2013-02-27 Completed Universit y of Vaccine 00:00:00 [facility] Influenza Virus 2013-02-27 Completed Universit y of Vaccine 00:00:00 [facility] Influenza Virus 2013-02-27 Completed Universit y of Vaccine 00:00:00 [facility] Influenza Virus 2013-02-27 Completed Universit y of Vaccine 00:00:00 [facility] Influenza Virus 2013-02-27 Completed Universit y of Vaccine 00:00:00 [facility] Influenza Virus 2013-02-27 Completed Universit y of Vaccine 00:00:00 [facility] Influenza Virus 2013-02-27 Completed Universit y of Vaccine 00:00:00 [facility] Influenza Virus 2013-02-27 Completed Universit y of Vaccine 00:00:00 [facility] Influenza Virus 2013-02-27 Completed Universit y of Vaccine 00:00:00 [facility] Influenza Virus 2013-02-27 Completed Universit y of Vaccine 00:00:00 [facility] Influenza Virus 2013-02-27 Completed Universit y of Vaccine 00:00:00 [facility] Influenza Virus 2013-02-27 Completed Universit y of Vaccine 00:00:00 [facility] Influenza Virus 2013-02-27 Completed Universit y of Vaccine 00:00:00 [facility] Influenza Virus 2013-02-27 Completed Universit y of Vaccine 00:00:00 [facility] Influenza Virus 2013-02-27 Completed Universit y of Vaccine 00:00:00 [facility] Influenza Virus 2013-02-27 Completed Universit y of Vaccine 00:00:00 [facility] Influenza Virus 2013-02-27 Completed Universit y of Vaccine 00:00:00 [facility] Influenza Virus 2013-02-27 Completed Universit y of Vaccine 00:00:00 [facility] Influenza Virus 2013-02-27 Completed Universit y of Vaccine 00:00:00 [facility] Influenza Virus 2013-02-27 Completed Universit y of Vaccine 00:00:00 [facility] Influenza Virus 2013-02-27 Completed Universit y of Vaccine 00:00:00 [facility] Influenza Virus 2013-02-27 Completed Universit y of Vaccine 00:00:00 [facility] Influenza Virus 2013-02-27 Completed Universit y of Vaccine 00:00:00 [facility] Influenza Virus 2013-02-27 Completed Universit y of Vaccine 00:00:00 [facility] Influenza Virus 2013-02-27 Completed Universit y of Vaccine 00:00:00 [facility] Influenza Virus 2013-02-27 Completed Universit y of Vaccine 00:00:00 [facility] Influenza Virus 2013-02-27 Completed Universit y of Vaccine 00:00:00 [facility] Influenza Virus 2013-02-27 Completed Universit y of Vaccine 00:00:00 [facility] Influenza Virus 2013-02-27 Completed Universit y of Vaccine 00:00:00 [facility] Influenza Virus 2013-02-27 Completed Universit y of Vaccine 00:00:00 [facility] Influenza Virus 2013-02-27 Completed Universit y of Vaccine 00:00:00 [facility] Influenza Virus 2013-02-27 Completed Universit y of Vaccine 00:00:00 [facility] Influenza Virus 2013-02-27 Completed Universit y of Vaccine 00:00:00 [facility] Influenza Virus 2013-02-27 Completed Universit y of Vaccine 00:00:00 [facility] Influenza Virus 2013-02-27 Completed Universit y of Vaccine 00:00:00 [facility] Influenza Virus 2013-02-27 Completed Universit y of Vaccine 00:00:00 [facility] Influenza Virus 2013-02-27 Completed Universit y of Vaccine 00:00:00 [facility] Influenza Virus 2013-02-27 Completed Universit y of Vaccine 00:00:00 [facility] Influenza Virus 2013-02-27 Completed Universit y of Vaccine 00:00:00 [facility] Influenza Virus 2013-02-27 Completed Universit y of Vaccine 00:00:00 [facility] Influenza Virus 2013-02-27 Completed Universit y of Vaccine 00:00:00 [facility] Influenza Virus 2013-02-27 Completed Universit y of Vaccine 00:00:00 [facility] Influenza Virus 2013-02-27 Completed Universit y of Vaccine 00:00:00 [facility] Influenza Virus 2013-02-27 Completed Universit y of Vaccine 00:00:00 [facility] Influenza Virus 2013-02-27 Completed Universit y of Vaccine 00:00:00 [facility] Influenza Virus 2013-02-27 Completed Universit y of Vaccine 00:00:00 [facility] Influenza Virus 2013-02-27 Completed Universit y of Vaccine 00:00:00 [facility] Influenza Virus 2013-02-27 Completed Universit y of Vaccine 00:00:00 [facility] Influenza Virus 2013-02-27 Completed Universit y of Vaccine 00:00:00 [facility] Influenza Virus 2013-02-27 Completed Universit y of Vaccine 00:00:00 [facility] Influenza Virus 2013-02-27 Completed Universit y of Vaccine 00:00:00 [facility] Influenza Virus 2013-02-27 Completed [facility]it y [facility] Vaccine 00:00:00 [facility] [place] [facility] Influenza Virus 2013-02-27 Completed [facility] 00:00[facility]00 [facility] Influenza Virus 2013-02-27 Completed [facility]ine 00:00:00 [facility] Influenza Virus 2013-02-27 Completed [facility] Vaccine 00:00:00 [facility] Influenza Virus 2013-02-27 Completed [facility] Vaccine 00:00:00 [facility] Influenza Virus 2013-02-27 Completed [facility] Vaccine 00:00:00 [facility] Influenza Virus 2013-02-27 Completed [facility] Vaccine 00:00:00 [facility] Influenza Virus 2013-02-27 Completed [facility] Vaccine 00:00:00 [facility] Influenza Virus 2013-02-27 Completed [facility] Vaccine 00:00:00 [facility] Influenza Virus 2013-02-27 Completed [facility] Vaccine 00:00:00 [facility] Influenza Virus 2013-02-27 Completed [facility] Vaccine 00:00:00 [facility] Influenza TIV (IM) 2013-02-[address] [facility] Vital Signs Vital Name Observation Time Observation Value Comments Source WEIGHT 2020-09-05 85.548 kg 19:05:00 WEIGHT 2020-08-28 83.9 kg 04:41:00 WEIGHT 2020-08-27 84.959 kg 05:27:00 WEIGHT 2020-08-26 85.821 kg 02:50:00 HEIGHT 2020-08-26 152.4 cm 02:50:00 Systolic blood 2022-07-31 103 mm[Hg] [facility] pressure 20:07:00 [facility] Diastolic blood 2022-07-31 73 mm[Hg] [facility] pressure 20:07:00 [facility] Heart rate 2022-07-31 60 /min [facility] 20:07:00 [facility] Body temperature 2022-07-31 36.22 [place] [facility] 20:07:00 [facility] Respiratory rate 2022-07-31 14 /min [facility] 20:07:00 [facility] Oxygen saturation 2022-07-31 99 /min [facility] in Arterial blood 20:07:00 [facility] Pulse oxim[facility] [place] Body weight 2022-07-31 56.473 kg University [facility] 14:00:00 [facility] BMI 2022-07-31 24.31 kg/m2 [facility] 14:00:00 [facility] Body height 2022-07-31 152.4 cm [facility] 03:13:00 [facility] Systolic blood 2022-04-26 144 mm[Hg] [facility] pressure 18:08:00 [facility] Diastolic blood 2022-04-26 97 mm[Hg] [facility] pressure 18:08:00 [facility] Heart rate 2022-04-26 66 /min [facility] 18:08:00 [facility] Body temperature 2022-04-26 35.78 [place] [facility] 18:08:00 [facility] Respiratory rate 2022-04-26 18 /min [facility] 18:08:00 [facility] Oxygen saturation 2022-04-26 99 /min [facility] in Arterial blood 18:08:00 [facility] Pulse oximetry [facility] Body weight 2022-04-26 [facility]361 [facility] 09:30:00 [facility] BMI 2022-04-26 28.57 kg/m2 [facility] 09:30:00 [facility] Body height 2022-04-26 152.4 cm [facility] 03:57:00 [facility] Systolic blood 2022-04-08 120 mm[Hg] [facility] pressure 19:03:00 [facility] Diastolic blood 2022-04-08 80 mm[Hg] [facility] pressure 19:03:00 [facility] Heart rate 2022-04-08 90 /min [facility] 19:03:00 [facility] Body temperature 2022-04-08 36.89 [facility] 19:03:00 [facility] Respiratory rate 2022-04-08 20 /min [facility] 19:03:00 [facility] Body height 2022-04-08 152.4 cm [facility] 19:03:00 [facility] Body weight 2022-04-08 72.576 [facility] 19:03:00 [facility] BMI 2022-04-08 31.25 kg/m2 [facility] 19:03:00 [facility] Oxygen saturation 2022-04-08 100 /min [facility] Arterial blood 19:03:00 [facility] by Pulse oximetry [place] height 2022-02-22 60 [in_i] [facility] [place] [facility] 14[facility]00:00 [facility] weight 2022-02-22 151.6 [lb_av] [facility] [place] 14:00:00 [facility] temperature 2022-02-22 97.2 [degF] [facility] [place] 14:00:00 [facility] bmi 2022-02-22 29.6 kg/m2 [facility] [place] - 14:00:00 [facility] blood pressure 2022-02-22 132 mm[Hg] [facility] [place] - systolic 14:00:00 [facility] blood pressure 2022-02-22 84 mm[Hg] [facility] [place] - diastolic 14:00:00 [facility] Systolic blood 2022-02-06 147 mm[Hg] [facility] pressure 21:55:00 [facility] Diastolic blood 2022-02-06 102 mm[Hg] [facility] f pressure 21:55:00 [facility] Heart rate 2022-02-06 82 /min [facility] 21:55:00 [facility] Body temperature 2022-02-06 36.28 [place] [facility] 21:55:00 [facility] Respiratory rate 2022-02-06 18 /min [facility] 21:55:00 [facility] Oxygen saturation 2022-02-06 99 /min [facility] in Arterial blood 21:55:00 [facility] Pulse oxim[facility] Body weight 2022-02-06 75.479 kg [facility] 08:24:00 [facility] BMI 2022-02-06 32.50 kg/m2 [facility] 08:24:00 [facility] Body height 2022-02-03 152.4 cm [facility] 22:37:00 [facility] Systolic blood 2022-01-27 141 mm[Hg] [facility] pressure 00:37:00 [facility] Diastolic blood 2022-01-27 92 mm[Hg] [facility] pressure 00:37:00 [facility] Heart rate 2022-01-27 73 /min [facility] 00:37:00 [facility] Respiratory rate 2022-01-27 16 /min [facility] 00:37:00 [facility] Oxygen saturation 2022-01-27 98 /min [facility] in Arterial blood 00:37:00 [facility] Pulse oxim[facility] Body weight 2022-01-26 72.122 kg [facility] 20:27:00 [facility] BMI 2022-01-26 31.05 kg/m2 [facility] 20:27:00 [facility] Body temperature 2022-01-26 37 [place] [facility] 20:26:00 [facility] Body height 2022-01-26 152.4 cm [facility] 20:26:00 [facility] Systolic blood 2021-11-02 159 mm[Hg] [facility] pressure 13:00:00 [facility] Diastolic blood 2021-11-02 98 mm[Hg] [facility] f pressure 13:00:00 [facility] Heart rate 2021-11-02 90 /min [facility] 13:00:00 [facility] Respiratory rate 2021-11-02 14 /min [facility] 13:00:00 [facility] Oxygen saturation 2021-11-02 97 /min [facility] in Arterial blood 13:00:00 [facility] Pulse oxim[facility] Body temperature 2021-11-02 37.06 [place] [facility] 09:49:00 [facility] Body height 2021-11-02 152.4 cm [facility] 09:49:00 [facility] Body weight 2021-11-02 77.111 kg [facility] 09:49:00 [facility] BMI 2021-11-02 33.20 kg/m2 [facility] 09:49:00 [facility] Heart rate 2021-09-29 63 /min [facility] 15:42:00 [facility] Respiratory rate 2021-09-29 18 /min [facility] 15:42:00 [facility] Oxygen saturation 2021-09-29 99 /min [facility] in Arterial blood 15:42:00 [facility] brandy by Pulse oximetry [facility] Systolic blood 2021-09-29 124 mm[Hg] [facility] pressure 15:40:00 [facility] Diastolic blood 2021-09-29 85 mm[Hg] [facility] f pressure 15:40:00 [facility] Body temperature 2021-09-29 36.39 [place] [facility] 14:41:00 [facility] Body height 2021-09-20 152.4 cm [facility] 15:00:00 [facility] Body weight 2021-09-20 78.5 kg [facility] 15:00:00 [facility] BMI 2021-09-20 33.80 kg/m2 [facility] 15:00:00 [facility] Systolic blood 2021-09-29 138 mm[Hg] [facility] pressure 15:15:00 [facility] Diastolic blood 2021-09-29 80 mm[Hg] [facility] pressure 15:15:00 [facility] Heart rate 2021-09-29 63 /min [facility] 15:15:00 [facility] Respiratory rate 2021-09-29 11 /min [facility] 15:15:00 [facility] Oxygen saturation 2021-09-29 99 /min [facility] in Arterial blood 15:15:00 [facility] by Pulse oximetry [facility] Body temperature 2021-09-29 36.39 [place] [facility] 14:41:00 [facility] Body height 2021-09-20 152.4 cm [facility] 15:00:00 [facility] Body weight 2021-09-20 78.5 kg [facility] 15:00:00 [facility] BMI 2021-09-20 33.80 kg/m2 [facility] 15:00:00 [facility] Respiratory rate 2021-09-29 10 /min [facility] 14:31:00 [facility] height 2021-09-21 62.00 [in_i] [facility] - 09:20:00 [facility] weight 2021-09-21 179 [lb_av] [facility] [place] :20:00 [facility] temperature 2021-09-21 97.4 [degF] [facility] - 09:20:00 [facility] bmi 2021-09-21 32.74 kg/m2 [facility] - :20:00 [facility] oximetry 2021-09-21 100 % [facility] - 09:20:00 [facility] respiratory rate 2021-09-21 15 /min [facility] - 09:20:00 [facility] blood pressure 2021-09-21 130 mm[Hg] [facility] [place] - systolic 09:20:00 [facility] blood pressure 2021-09-21 82 mm[Hg] [facility] [place] - diastolic 09:20:00 [facility] Systolic blood 2021-09-08 112 mm[Hg] [facility] pressure 21:35:00 [facility] Diastolic blood 2021-09-08 77 mm[Hg] [facility] o f pressure 21:35:00 [facility] Heart rate 2021-09-08 64 /min [facility] 21:35:00 [facility] Body temperature 2021-09-08 36.22 [place] 21:35:00 [facility] Respiratory rate 2021-09-08 18 /min [facility] 21:35:00 [facility] Oxygen saturation 2021-09-08 100 /min [facility] Arterial blood 21:35:00 [facility] Pulse oximetry [place] Body height 2021-09-02 152.4 cm [facility] 00:59:00 [facility] Body weight 2021-09-02 78.5 kg [facility] of 00:59:00 [facility] BMI 2021-09-02 33.80 kg/m2 [facility] 00:59:00 [facility] Systolic blood 2021-08-27 169 mm[Hg] [facility] pressure 20:00:00 [facility] Diastolic blood 2021-08-27 103 mm[Hg] [facility] pressure 20:00:00 [facility] Heart rate 2021-08-27 66 /min [facility] 20:00:00 [facility] Respiratory rate 2021-08-27 11 /min University 20:00:00 [facility] Oxygen saturation 2021-08-27 98 /min [facility] Arterial blood 20:00:00 [facility] by Pulse oximetry Branch Body temperature 2021-08-27 36.17 [place] [facility]aneous [facility] 15:50:00 filing. User may [facility] not have seen Branch previous data. Body height 2021-08-27 152.4 cm University 15:50:00 [facility] Body weight 2021-08-27 81.647 kg [facility] of 15:50:00 [facility] BMI 2021-08-27 35.15 kg/m2 University 15:50:00 [facility] height 2021-08-07 62.00 [in_i] [facility] [place] [facility] 11:40:00 [facility] weight 2021-08-07 176.2 [lb_av] [facility] [place] [facility] 11:40:00 [facility] temperature 2021-08-07 98.0 [degF] [facility] [place] [facility] 11:40:00 [facility] bmi 2021-08-07 32.22 kg/m2 [facility] [place] - 11:40:00 [facility] oximetry 2021-08-07 100 % [facility] [place] - 11:40:00 [facility] respiratory rate 2021-08-07 18 /min [facility] it - 11:40:00 [facility] blood pressure 2021-08-07 132 mm[Hg] [facility] [place] - systolic 11:40:00 [facility] blood pressure 2021-08-07 82 mm[Hg] [facility] [place] - diastolic 11:40:00 [facility] Systolic blood 2021-07-29 154 mm[Hg] [facility] pressure 16:16:00 [facility] Diastolic blood 2021-07-29 91 mm[Hg] [facility] pressure 16:16:00 [facility] Heart rate 2021-07-29 92 /min [facility] 16:16:00 [facility] Body temperature 2021-07-29 36.44 [facility] 16:16:00 [facility] Respiratory rate 2021-07-29 16 /min University 16:16:00 [facility] Oxygen saturation 2021-07-29 98 /min [facility] Arterial blood 16:16:00 [facility] Pulse oxim[facility] Body weight 2021-07-28 86.63 kg [facility] 18:00:00 [facility] BMI 2021-07-28 37.30 kg/m2 [facility] 18:00:00 [facility] Body height 2021-07-24 152.4 cm [facility] 00:00:00 [facility] Systolic blood 2021-07-04 141 mm[Hg] [facility] pressure 18:05:00 [facility] Diastolic blood 2021-07-04 95 mm[Hg] [facility] pressure 18:05:00 [facility] Heart rate 2021-07-04 64 /min [facility] 18:05:00 [facility] Respiratory rate 2021-07-04 11 /min [facility] 18:05:00 [facility] Oxygen saturation 2021-07-04 96 /min [facility] in Arterial blood 18:05:00 [facility] by Pulse oximetry Branch Body temperature 2021-07-04 36.39 [place] [facility] 17:48:00 [facility] Body height 2021-07-03 152.4 cm [facility] 19:51:00 [facility] Body weight 2021-07-03 81.6 kg [facility] of 19:51:00 [facility] BMI 2021-07-03 35.13 kg/m2 [facility] 19:51:00 [facility] Systolic blood 2021-07-04 141 mm[Hg] [facility] pressure 15:45:00 [facility] Diastolic blood 2021-07-04 97 mm[Hg] [facility] pressure 15:45:00 [facility] Heart rate 2021-07-04 81 /min [facility] 15:45:00 [facility] Body temperature 2021-07-04 36.39 [place] [facility] 15:45:00 [facility] Respiratory rate 2021-07-04 20 /min [facility] of 15:45:00 [facility] Oxygen saturation 2021-07-04 100 /min [facility] in Arterial blood 15:45:00 [facility] brandy by Pulse oximetry Branch Body height 2021-07-03 152.4 cm [facility] 19:51:00 [facility] Body weight 2021-07-03 81.6 kg [facility] of 19:51:00 [facility] BMI 2021-07-03 35.13 kg/m2 [facility] 19:51:00 [facility] height 2021-06-15 62.00 [in_i] [facility] 08:40:00 [facility] weight 2021-06-15 189 [lb_av] [facility] [place] 08:40:00 [facility] temperature 2021-06-15 97.3 [degF] [facility] - 08:40:00 [facility] bmi 2021-06-15 34.56 kg/m2 [facility] - 08:40:00 [facility] oximetry 2021-06-15 98 % [facility] - 08[facility]40:00 [facility] respiratory rate 2021-06-15 18 /min [facility] - 08:40:00 [facility] blood pressure 2021-06-15 148 mm[Hg] [facility] [place] - systolic 08:40:00 [facility] blood pressure 2021-06-15 92 mm[Hg] [facility] [place] - diastolic 08:40:00 [facility] Systolic blood 2021-06-04 164 mm[Hg] [facility] pressure 04:00:00 [facility] Diastolic blood 2021-06-04 104 mm[Hg] [facility] pressure 04:00:00 [facility] Heart rate 2021-06-04 64 /min [facility] 04:00:00 [facility] Oxygen saturation 2021-06-04 98 /min [facility] Arterial blood 04:00:00 [facility] by Pulse oximetry [place] Respiratory rate 2021-06-04 11 /min [facility] 03:00:00 [facility] Body temperature 2021-06-03 35.89 [place] 19:49:00 [facility] Body height 2021-06-03 152.4 cm [facility] 19:49:00 [facility] Body weight 2021-06-03 81.647 kg [facility] of 19:49:00 [facility] BMI 2021-06-03 35.15 kg/m2 [facility] 19:49:00 [facility] Systolic blood 2021-05-22 151 mm[Hg] [facility] pressure 07:00:00 [facility] Diastolic blood 2021-05-22 97 mm[Hg] [facility] pressure 07:00:00 [facility] Heart rate 2021-05-22 93 /min [facility] 07:00:00 [facility] Oxygen saturation 2021-05-22 96 /min [facility] Arterial blood 07:00:00 [facility] by Pulse oximetry Branch Body temperature 2021-05-22 37.61 [place] [facility] 05:24:00 [facility] Respiratory rate 2021-05-22 20 /min [facility] 05:24:00 [facility] Body height 2021-05-22 152.4 cm [facility] 05:24:00 [facility] Body weight 2021-05-22 81.647 kg [facility] of 05:24:00 [facility] BMI 2021-05-22 35.15 kg/m2 [facility] 05:24:00 [facility] Systolic blood 2021-05-18 139 mm[Hg] [facility] pressure 15:16:00 [facility] Diastolic blood 2021-05-18 86 mm[Hg] [facility] pressure 15:16:00 [facility] Heart rate 2021-05-18 85 /min [facility] of 15:16:00 [facility] Body temperature 2021-05-18 36.39 [place] [facility] 15:16:00 [facility] Respiratory rate 2021-05-18 18 /min [facility] of 15:16:00 [facility] Body height 2021-05-18 152.4 cm [facility] 15:16:00 [facility] Body weight 2021-05-18 87.862 kg [facility] of 15:16:00 [facility] BMI 2021-05-18 37.83 kg/m2 [facility] 15:16:00 [facility] Oxygen saturation 2021-05-18 97 /min [facility] Arterial blood 15:16:00 [facility] by Pulse oximetry Branch Systolic blood 2021-04-15 163 mm[Hg] [facility] pressure 19:38:00 [facility] Diastolic blood 2021-04-15 105 mm[Hg] [facility] pressure 19:38:00 [facility] Heart rate 2021-04-15 98 /min [facility] of 19:38:00 [facility] Body temperature 2021-04-15 37.06 [place] [facility] 19:38:00 [facility] Respiratory rate 2021-04-15 18 /min [facility] of 19:38:00 [facility] Body height 2021-04-15 152.4 cm [facility] 19:38:00 [facility] Body weight 2021-04-15 81.647 kg [facility] 19:38:00 [facility] BMI 2021-04-15 35.15 kg/m2 [facility] 19:38:00 [facility] Oxygen saturation 2021-04-15 97 /min [facility] Arterial blood 19:38:00 [facility] by Pulse oximetry [place] Systolic blood 2021-04-15 140 mm[Hg] [facility] pressure 19:20:00 [facility] Diastolic blood 2021-04-15 98 mm[Hg] [facility] o f pressure 19:20:00 [facility] Heart rate 2021-04-15 109 /min University 19:20:00 [facility] Body temperature 2021-04-15 36.94 [place] [facility] 19:20:00 [facility] Respiratory rate 2021-04-15 17 /min University 19:20:00 [facility] Body weight 2021-04-15 84.596 [facility] 19:20:00 [facility] BMI 2021-04-15 36.42 kg/m2 University 19:20:00 [facility] Oxygen saturation 2021-04-15 98 /min [facility] Arterial blood 19:20:00 [facility] by Pulse oximetry [place] height 2021-04-03 62.00 [in_i] [facility] 09:00:00 [facility] weight 2021-04-03 189 [lb_av] [facility] - 09:00:00 [facility] temperature 2021-04-03 97.2 [degF] [facility] - 09:00:00 [facility] bmi 2021-04-03 34.56 kg/m2 [facility] - 09:00:00 [facility] oximetry 2021-04-03 95 % [facility] - 09:00:00 [facility] blood pressure 2021-04-03 138 mm[Hg] [facility] - systolic 09:00:00 [facility] blood pressure 2021-04-03 48 mm[Hg] [facility] [place] diastolic 09:00:00 [facility] Systolic blood 2021-03-26 138 mm[Hg] [facility] pressure 03:00:00 [facility] Diastolic blood 2021-03-26 89 mm[Hg] [facility] o f pressure 03:00:00 [facility] Heart rate 2021-03-26 75 /min University 03:00:00 [facility] Respiratory rate 2021-03-26 12 /min [facility] of 03:00:00 [facility] Oxygen saturation 2021-03-26 99 /min [facility] in Arterial blood 03:00:00 [facility] by Pulse oximetry Branch Body temperature 2021-03-26 37 [place] [facility] 01:02:09 [facility] Body height 2021-03-26 152.4 cm [facility] of 00:10:00 [facility] Body weight 2021-03-26 80.74 kg [facility] of 00:10:00 [facility] BMI 2021-03-26 34.76 kg/m2 [facility] 00:10:00 [facility] Systolic blood 2021-03-21 173 mm[Hg] [facility] pressure 01:28:00 [facility] Diastolic blood 2021-03-21 104 mm[Hg] [facility] pressure 01:28:00 [facility] Heart rate 2021-03-21 74 /min [facility] of 01:28:00 [facility] Respiratory rate 2021-03-21 22 /min [facility] of 01:28:00 [facility] Oxygen saturation 2021-03-21 96 /min [facility] in Arterial blood 01:28:00 [facility] by Pulse oximetry Branch Body temperature 2021-03-20 37.17 [place] [facility] 21:59:00 [facility] Body weight 2021-03-20 81.647 kg [facility] of 21:59:00 [facility] BMI 2021-03-20 35.15 kg/m2 [facility] of 21:59:00 [facility] Systolic blood 2021-02-13 159 mm[Hg] [facility] pressure 02:02:00 [facility] Diastolic blood 2021-02-13 95 mm[Hg] [facility] pressure 02:02:00 [facility] Body temperature 2021-02-13 36.67 [place] [facility] 02:02:00 [facility] Respiratory rate 2021-02-13 17 /min [facility] of 02:02:00 [facility] Oxygen saturation 2021-02-13 93 /min [facility] in Arterial blood 02:02:00 [facility] by Pulse oximetry Branch Heart rate 2021-02-13 73 /min [facility] of 01:00:00 [facility] Body height 2021-02-12 152.4 cm [facility] of 19:07:00 [facility] Body weight 2021-02-12 86.183 kg [facility] of 19:07:00 [facility] BMI 2021-02-12 37.11 kg/m2 [facility] of 19:07:00 [facility] Systolic blood 2021-01-18 155 mm[Hg] [facility] pressure 05:45:00 [facility] Diastolic blood 2021-01-18 93 mm[Hg] [facility] pressure 05:45:00 [facility] Heart rate 2021-01-18 86 /min [facility] of 05:45:00 [facility] Respiratory rate 2021-01-18 14 /min [facility] of 05:45:00 [facility] Oxygen saturation 2021-01-18 99 /min [facility] in Arterial blood 05:45:00 [facility] Pulse o[facility] Body temperature 2021-01-18 37.06 [place] [facility] of 02:32:00 [facility] Body height 2021-01-18 152.4 cm [facility] of 02:32:00 [facility] Body weight 2021-01-18 86.183 kg [facility] of 02:32:00 [facility] BMI 2021-01-18 37.11 kg/m2 [facility] of 02:32:00 [facility] Systolic blood 2021-01-07 117 mm[Hg] [facility] pressure 16:25:00 [facility] Diastolic blood 2021-01-07 79 mm[Hg] [facility] o f pressure 16:25:00 [facility] Heart rate 2021-01-07 85 /min [facility] 16:25:00 [facility] Body temperature 2021-01-07 36.89 [place] [facility] 16:25:00 [facility] Respiratory rate 2021-01-07 16 /min [facility] 16:25:00 [facility] Body height 2021-01-07 152.4 cm [facility] 16:25:00 [facility] Body weight 2021-01-07 77.111 kg [facility] 16:25:00 [facility] BMI 2021-01-07 33.20 kg/m2 [facility] 16:25:00 [facility] Oxygen saturation 2021-01-07 96 /min [facility] in Arterial blood 16:25:00 [facility] Systolic blood 2020-12-30 148 mm[Hg] [facility] pressure 22:35:00 [facility] Diastolic blood 2020-12-30 107 mm[Hg] [facility] f pressure 22:35:00 [facility] Heart rate 2020-12-30 78 /min [facility] 22:35:00 [facility] Respiratory rate 2020-12-30 18 /min [facility] 22:35:00 [facility] Oxygen saturation 2020-12-30 97 /min [facility] Arterial blood 22:35:00 [facility] by Pulse oximetry [place] Body temperature 2020-12-30 37.44 [place] [facility] 18:12:00 [facility] Body height 2020-12-30 152.4 cm [facility] 18:12:00 [facility] Body weight 2020-12-30 77.111 kg [facility] 18:12:00 [facility] BMI 2020-12-30 33.20 kg/m2 [facility] 18:12:00 [facility] Systolic blood 2020-12-30 122 mm[Hg] [facility] pressure 15:13:00 [facility] Diastolic blood 2020-12-30 87 mm[Hg] [facility] pressure 15:13:00 [facility] Heart rate 2020-12-30 83 /min [facility] 15:13:00 [facility] Body temperature 2020-12-30 36.83 [place] [facility] 15:13:00 [facility] Respiratory rate 2020-12-30 18 /min [facility] 15:13:00 [facility] Body height 2020-12-30 152.4 cm [facility] 15:13:00 [facility] Body weight 2020-12-30 83.553 kg [facility] 15:13:00 [facility] BMI 2020-12-30 35.97 kg/m2 [facility] 15:13:00 [facility] Systolic blood 2020-12-16 123 mm[Hg] [facility] pressure 15:21:00 [facility] Diastolic blood 2020-12-16 90 mm[Hg] [facility] pressure 15:21:00 [facility] Heart rate 2020-12-16 81 /min [facility] 15:21:00 [facility] Body temperature 2020-12-16 36.83 [place] [facility] 15:21:00 [facility] Respiratory rate 2020-12-16 18 /min [facility] 15:21:00 [facility] Body height 2020-12-16 152.4 cm [facility] 15:21:00 [facility] Body weight 2020-12-16 83.915 kg [facility] 15:21:00 [facility] BMI 2020-12-16 36.13 kg/m2 [facility] 15:21:00 [facility] Systolic blood 2020-12-16 123 mm[Hg] [facility] pressure 15:21:00 [facility] Diastolic blood 2020-12-16 90 mm[Hg] [facility] pressure 15:21:00 [facility] Heart rate 2020-12-16 81 /min [facility] 15:21:00 [facility] Body temperature 2020-12-16 36.83 [place] [facility] 15:21:00 [facility] Respiratory rate 2020-12-16 18 /min [facility] 15:21:00 [facility] Body height 2020-12-16 152.4 cm [facility] 15:21:00 [facility] Body weight 2020-12-16 83.915 kg [facility] 15::00 [facility] BMI 2020-12-16 36.13 kg/m2 [facility] 15:21:00 [facility] Systolic blood 2020-12-05 167 mm[Hg] [facility] pressure 22:45:00 [facility] Diastolic blood 2020-12-05 101 mm[Hg] [facility] pressure 22:45:00 [facility] Heart rate 2020-12-05 76 /min [facility] 22:45:00 [facility] Respiratory rate 2020-12-05 20 /min [facility] 22:45:00 [facility] Oxygen saturation 2020-12-05 97 /min [facility] Arterial blood 22:45:00 [facility] by Pulse oxim[facility] [place] Body temperature 2020-12-05 37.11 [place] [facility] 19:05:00 [facility] Body weight 2020-12-05 77.111 kg [facility] 19:05:00 [facility] BMI 2020-12-05 33.20 kg/m2 [facility] 19:05:00 [facility] Systolic blood 2020-10-12 111 mm[Hg] [facility] pressure 20:04:00 [facility] Diastolic blood 2020-10-12 77 mm[Hg] [facility] pressure 20:04:00 [facility] Heart rate 2020-10-12 74 /min [facility] 20:04:00 [facility] Body temperature 2020-10-12 36.06 [place] [facility] 20:04:00 [facility] Respiratory rate 2020-10-12 18 /min [facility] 20:04:00 [facility] Oxygen saturation 2020-10-12 97 /min [facility] in Arterial blood 20:04:00 [facility] by Pulse oximetry [facility] Body height 2020-10-12 152.4 cm [facility] 02:36:00 [facility] Body weight 2020-10-12 84.46 kg [facility] of 02:36:00 [facility] BMI 2020-10-12 36.36 kg/m2 [facility] 02:36:00 [facility] Systolic blood 2020-10-12 111 mm[Hg] [facility] pressure 20:04:00 [facility] Diastolic blood 2020-10-12 77 mm[Hg] [facility] pressure 20:04:00 [facility] Heart rate 2020-10-12 74 /min [facility] 20:04:00 [facility] Body temperature 2020-10-12 36.06 [place] [facility] 20:04:00 [facility] Respiratory rate 2020-10-12 18 /min [facility] 20:04:00 [facility] Oxygen saturation 2020-10-12 97 /min [facility] in Arterial blood 20:04:00 [facility]ulse o[facility] [place] Body height 2020-10-12 152.4 cm [facility] 02:36:00 [facility] Body weight 2020-10-12 84.46 kg [facility] of 02:36:00 [facility] BMI 2020-10-12 36.36 kg/m2 [facility] 02:36:00 [facility] Systolic blood 2020-10-05 129 mm[Hg] [facility] pressure 01:00:00 [facility] Diastolic blood 2020-10-05 88 mm[Hg] [facility] pressure 01:00:00 [facility] Heart rate 2020-10-05 72 /min [facility] 01:00:00 [facility] Respiratory rate 2020-10-05 18 /min [facility] 01:00:00 [facility] Oxygen saturation 2020-10-05 95 /min [facility] in Arterial blood 01:00:00 [facility] Pulse oxim[facility] [place] Body temperature 2020-10-04 37.72 [place] [facility] 22:44:00 [facility] Body weight 2020-10-04 77.111 kg [facility] 22:44:00 [facility] BMI 2020-10-04 33.20 kg/m2 [facility] 22:44:00 [facility] Systolic blood 2020-10-05 129 mm[Hg] [facility] pressure 01:00:00 [facility] Diastolic blood 2020-10-05 88 mm[Hg] [facility] pressure 01:00:00 [facility] Heart rate 2020-10-05 72 /min [facility] 01:00:00 [facility] Respiratory rate 2020-10-05 18 /min [facility] 01:00:00 [facility] Oxygen saturation 2020-10-05 95 /min [facility] in Arterial blood 01:00:00 [facility] Body temperature 2020-10-04 37.72 [place] [facility] 22:44:00 [facility] Body weight 2020-10-04 77.111 kg [facility] 22:44:00 [facility] BMI 2020-10-04 33.20 kg/m2 [facility] 22:44:00 [facility] WEIGHT 2020-09-05 85.548 kg 19:05:00 WEIGHT 2020-08-28 83.9 kg 04:41:00 WEIGHT 2020-08-27 84.959 kg 05:27:00 WEIGHT 2020-08-26 85.821 kg 02:50:00 HEIGHT 2020-08-26 152.4 cm 02:50:00 Systolic blood 2020-08-05 157 mm[Hg] [facility] pressure 13:12:00 [facility] Diastolic blood 2020-08-05 128 mm[Hg] [facility] pressure 13:12:00 [facility] Heart rate 2020-08-05 95 /min [facility] 13:12:00 [facility] Body temperature 2020-08-05 36.67 [place] [facility] 13:12:00 [facility] Respiratory rate 2020-08-05 18 /min [facility] 13:12:00 [facility] Body weight 2020-08-05 77.111 kg [facility] 13:12:00 [facility] BMI 2020-08-05 33.20 kg/m2 [facility] 13:12:00 [facility] Oxygen saturation 2020-08-05 98 /min [facility] in Arterial blood 13:12:00 [facility] Systolic blood 2020-08-05 157 mm[Hg] [facility] pressure 13:12:00 [facility] Diastolic blood 2020-08-05 128 mm[Hg] [facility] pressure 13:12:00 [facility] Heart rate 2020-08-05 95 /min [facility] 13:12:00 [facility] Body temperature 2020-08-05 36.67 [place] [facility] 13:12:00 [facility] Respiratory rate 2020-08-05 18 /min [facility] 13:12:00 [facility] Body weight 2020-08-05 77.111 kg [facility] 13:12:00 [facility] BMI 2020-08-05 33.20 kg/m2 [facility] 13:12:00 [facility] Oxygen saturation 2020-08-05 98 /min [facility] in Arterial blood 13:12:00 [facility] by Pulse oximetry [facility] Systolic blood 2020-07-18 184 mm[Hg] [facility] pressure 13:22:00 [facility] Diastolic blood 2020-07-18 110 mm[Hg] [facility] pressure 13:22:00 [facility] Heart rate 2020-07-18 71 /min [facility] 13:22:00 [facility] Respiratory rate 2020-07-18 18 /min [facility] 13:22:00 [facility] Oxygen saturation 2020-07-18 100 /min [facility] in Arterial blood 13:22:00 [facility] by Pulse oximetry [facility] Body temperature 2020-07-18 36.56 [place] [facility] 12:49:00 [facility] Body height 2020-07-14 152.4 cm [facility] 16:45:00 [facility] Body weight 2020-07-14 77.111 kg [facility] 16:45:00 [facility] BMI 2020-07-14 33.20 kg/m2 [facility] 16:45:00 [facility] Systolic blood 2020-07-18 184 mm[Hg] [facility] pressure 13:22:00 [facility] Diastolic blood 2020-07-18 110 mm[Hg] [facility] pressure 13:22:00 [facility] Heart rate 2020-07-18 71 /min [facility] 13:22:00 [facility] Respiratory rate 2020-07-18 18 /min [facility] 13:22:00 [facility] Oxygen saturation 2020-07-18 100 /min [facility] in Arterial blood 13:22:00 [facility] by Pulse oximetry [facility] Body temperature 2020-07-18 36.56 [place] [facility] 12:49:00 [facility] Body height 2020-07-14 152.4 cm [facility] 16:45:00 [facility] Body weight 2020-07-14 77.111 kg [facility] 16:45:00 [facility] BMI 2020-07-14 33.20 kg/m2 [facility] 16:45:00 [facility] Systolic blood 2020-07-18 180 mm[Hg] [facility] pressure 12:59:00 [facility] Diastolic blood 2020-07-18 88 mm[Hg] [facility] pressure 12:59:00 [facility] Heart rate 2020-07-18 74 /min [facility] 12:59:00 [facility] Respiratory rate 2020-07-18 17 /min [facility] 12:59:00 [facility] Oxygen saturation 2020-07-18 100 /min [facility] in Arterial blood 12:59:00 [facility] Body temperature 2020-07-18 36.56 [place] [facility] 12:49:00 [facility] Body height 2020-07-14 152.4 cm [facility] 16:45:00 [facility] Body weight 2020-07-14 77.111 kg [facility] 16:45:00 [facility] BMI 2020-07-14 33.20 kg/m2 [facility] 16:45:00 [facility] Systolic blood 2020-07-18 180 mm[Hg] [facility] pressure 12:59:00 [facility] Diastolic blood 2020-07-18 88 mm[Hg] [facility] pressure 12:59:00 [facility] Heart rate 2020-07-18 74 /min [facility] 12:59:00 [facility] Respiratory rate 2020-07-18 17 /min [facility] 12:59:00 [facility] Oxygen saturation 2020-07-18 100 /min [facility] in Arterial blood 12:59:00 [facility] by Pulse oximetry [facility] Body temperature 2020-07-18 36.56 [place] [facility] 12:49:00 [facility] Body height 2020-07-14 152.4 cm [facility] 16:45:00 [facility] Body weight 2020-07-14 77.111 kg [facility] 16:45:00 [facility] BMI 2020-07-14 33.20 kg/m2 [facility] 16:45:00 [facility] Systolic blood 2020-07-08 187 mm[Hg] [facility] pressure 02:00:00 [facility] Diastolic blood 2020-07-08 102 mm[Hg] [facility] pressure 02:00:00 [facility] Heart rate 2020-07-08 84 /min [facility] 02:00:00 [facility] Respiratory rate 2020-07-08 20 /min [facility] 02:00:00 [facility] Oxygen saturation 2020-07-08 100 /min [facility] in Arterial blood 02:00:00 [facility] by Pulse oximetry [facility] Body temperature 2020-07-07 37.22 [place] [facility] 23:45:00 [facility] Body weight 2020-07-07 81.194 kg [facility] 23:45:00 [facility] BMI 2020-07-07 34.96 kg/m2 [facility] 23:45:00 [facility] Systolic blood 2020-07-08 187 mm[Hg] [facility] pressure 02:00:00 [facility] Diastolic blood 2020-07-08 102 mm[Hg] [facility] pressure 02:00:00 [facility] Heart rate 2020-07-08 84 /min [facility] 02:00:00 [facility] Respiratory rate 2020-07-08 20 /min [facility] 02:00:00 [facility] Oxygen saturation 2020-07-08 100 /min [facility] in Arterial blood 02:00:00 [facility] by Pulse oximetry [facility] Body temperature 2020-07-07 37.22 [place] [facility] 23:45:00 [facility] Body weight 2020-07-07 81.194 kg [facility] 23:45:00 [facility] BMI 2020-07-07 34.96 kg/m2 [facility] 23:45:00 [facility] Systolic blood 2020-07-04 168 mm[Hg] [facility] pressure 13:34:00 [facility] Diastolic blood 2020-07-04 94 mm[Hg] [facility] pressure 13:34:00 [facility] Heart rate 2020-07-04 63 /min [facility] 13:34:00 [facility] Oxygen saturation 2020-07-04 100 /min [facility] in Arterial blood 13:34:00 [facility] Respiratory rate 2020-07-04 12 /min [facility] 13:23:00 [facility] Body temperature 2020-07-04 36.72 [place] [facility] 13:03:00 [facility] Body height 2020-07-01 152.4 cm [facility] 17:45:00 [facility] Body weight 2020-07-01 81.647 kg [facility] 17:45:00 [facility] BMI 2020-07-01 35.15 kg/m2 [facility] 17:45:00 [facility] Systolic blood 2020-07-04 168 mm[Hg] [facility] pressure 13:34:00 [facility] Diastolic blood 2020-07-04 94 mm[Hg] [facility] pressure 13:34:00 [facility] Heart rate 2020-07-04 63 /min [facility] 13:34:00 [facility] Oxygen saturation 2020-07-04 100 /min [facility] in Arterial blood 13:34:00 [facility] Respiratory rate 2020-07-04 12 /min [facility] 13:23:00 [facility] Body temperature 2020-07-04 36.72 [place] [facility] 13:03:00 [facility] Body height 2020-07-01 152.4 cm [facility] 17:45:00 [facility] Body weight 2020-07-01 81.647 kg [facility] 17:45:00 [facility] BMI 2020-07-01 35.15 kg/m2 [facility] 17:45:00 [facility] Systolic blood 2020-06-20 148 mm[Hg] [facility] pressure 14:33:00 [facility] Diastolic blood 2020-06-20 86 mm[Hg] [facility] pressure 14:33:00 [facility] Heart rate 2020-06-20 70 /min [facility] 14:33:00 [facility] Respiratory rate 2020-06-20 11 /min [facility] 14:33:00 [facility] Oxygen saturation 2020-06-20 98 /min [facility] in Arterial blood 14:33:00 [facility] Body temperature 2020-06-20 36.33 [place] [facility] 14:18:00 [facility] Body height 2020-06-20 152.4 cm [facility] 12:30:00 [facility] Body weight 2020-06-20 81.647 kg [facility] 12:30:00 [facility] BMI 2020-06-20 35.15 kg/m2 [facility] 12:30:00 [facility] Systolic blood 2020-06-20 148 mm[Hg] [facility] pressure 14:33:00 [facility] Diastolic blood 2020-06-20 86 mm[Hg] [facility] o [facility] pressure 14:33:00 [facility] Heart rate 2020-06-20 70 /min [facility] 14:33:00 [facility] Respiratory rate 2020-06-20 11 /min [facility] 14:33:00 [facility] Oxygen saturation 2020-06-20 98 /min [facility] in Arterial blood 14:33:00 [facility] by Pulse oximetry [facility] Body temperature 2020-06-20 36.33 [place] [facility] 14:18:00 [facility] Body height 2020-06-20 152.4 cm [facility] 12:30:00 [facility] Body weight 2020-06-20 81.647 kg [facility] 12:30:00 [facility] BMI 2020-06-20 35.15 kg/m2 [facility] 12:30:00 [facility] Respiratory rate 2020-06-20 17 /min [facility] 14:12:00 [facility] Respiratory rate 2020-06-20 17 /min [facility] 14:12:00 [facility] Systolic blood 2020-05-07 122 mm[Hg] [facility] pressure 00:05:00 [facility] Diastolic blood 2020-05-07 77 mm[Hg] [facility] pressure 00:05:00 [facility] Heart rate 2020-05-07 61 /min [facility] 00:05:00 [facility] Respiratory rate 2020-05-07 17 /min [facility] 00:05:00 [facility] Oxygen saturation 2020-05-07 100 /min [facility] in Arterial blood 00:05:00 [facility] by Pulse oximetry [facility] Body temperature 2020-05-06 37.06 [place] [facility] 21:17:00 [facility] Body height 2020-05-06 152.4 cm [facility] 21:17:00 [facility] Body weight 2020-05-06 77.111 kg [facility] of 21:17:00 [facility] BMI 2020-05-06 33.20 kg/m2 [facility] 21:17:00 [facility] Systolic blood 2020-05-07 122 mm[Hg] [facility] pressure 00:05:00 [facility] Diastolic blood 2020-05-07 77 mm[Hg] [facility] pressure 00:05:00 [facility] Heart rate 2020-05-07 61 /min [facility] 00:05:00 [facility] Respiratory rate 2020-05-07 17 /min [facility] 00:05:00 [facility] Oxygen saturation 2020-05-07 100 /min [facility] in Arterial blood 00:05:00 [facility] Body temperature 2020-05-06 37.06 [place] [facility] 21:17:00 [facility] Body height 2020-05-06 152.4 cm [facility] 21:17:00 [facility] Body weight 2020-05-06 77.111 kg [facility] 21:17:00 [facility] BMI 2020-05-06 33.20 kg/m2 [facility] 21:17:00 [facility] Systolic blood 2020-03-26 170 [...] 2020-03-26 77.111 kg [facility] 03:07:00 [facility] BMI 2020-03-26 33.20 kg/m2 University [...] weight 2020-03-26 77.111 kg [facility] of 03:07:00 [facility] BMI 2020-03-26 33.20 kg/m2 [facility] 03:07:00 [facility] Systolic blood 2020-02-08 134 mm[Hg] [facility] pressure 20:21:00 [facility] Diastolic blood 2020-02-08 94 mm[Hg] [facility] pressure 20:21:00 [facility] Heart rate 2020-02-08 76 /min [facility] 20:: [facility] Body temperature 2020-02-08 36.11 [place] [facility] 20:21:00 [facility] Respiratory rate 2020-02-08 17 /min [facility] 20:21:00 [facility] Oxygen saturation 2020-02-08 100 /min [facility] in Arterial blood 20:21:00 [facility] by Pulse oxim[facility] Body weight 2020-02-03 80.468 kg University of 08:16:00 [facility] BMI 2020-02-03 34.65 kg/m2 [facility] 08:16:00 [facility] Systolic blood 2020-02-08 134 mm[Hg] [facility] pressure 20:21:00 [facility] Diastolic blood 2020-02-08 94 mm[Hg] [facility] pressure 20:21:00 [facility] Heart rate 2020-02-08 76 /min University of ::00 [facility] Body temperature 2020-02-08 36.11 [place] [facility] 20::00 [facility] Respiratory rate 2020-02-08 17 /min [facility] 20::00 [facility] Oxygen saturation 2020-02-08 100 /min [facility] in Arterial blood 20::00 [facility] by Pulse oxim[facility] Body weight 2020-02-03 80.468 kg [facility] of 08:16:00 [facility] BMI 2020-02-03 34.65 kg/m2 [facility] 08:16:00 [facility] Systolic blood 2019-12-18 113 mm[Hg] [facility] pressure 23:30:00 [facility] Diastolic blood 2019-12-18 76 mm[Hg] [facility] pressure 23:30:00 [facility] Heart rate 2019-12-18 57 /min [facility] 23:30:00 [facility] Respiratory rate 2019-12-18 18 /min [facility] 23:30:00 [facility] Oxygen saturation 2019-12-18 99 /min [facility] in Arterial blood 23:30:00 [facility] by Pulse oxim[facility] Body temperature 2019-12-18 36.67 [place] [facility] 20:24:00 [facility] Body height 2019-12-18 152.4 cm [facility] of 20:24: [facility] Body weight 2019-12-18 77.111 kg [facility] of 20:24:00 [facility] BMI 2019-12-18 33.20 kg/m2 [facility] 20:24:00 [facility] Systolic blood 2019-12-18 113 mm[Hg] [facility] pressure 23:30:00 [facility] Diastolic blood 2019-12-18 76 mm[Hg] [facility] pressure 23:30:00 [facility] Heart rate 2019-12-18 57 /min [facility] 23:30:00 [facility] Respiratory rate 2019-12-18 18 /min [facility] 23:30:00 [facility] Oxygen saturation 2019-12-18 99 /min [facility] in Arterial blood 23:30:00 [facility] [place] Body temperature 2019-12-18 36.67 [place] [facility] 20:24:00 [facility] Body height 2019-12-18 152.4 cm University of 20:24: [facility] Body weight 2019-12-18 77.111 kg [facility] of 20:24:00 [facility] BMI 2019-12-18 33.20 kg/m2 [facility] 20:24:00 [facility] Systolic blood 2019-08-22 159 mm[Hg] [facility] pressure 04:28:00 [facility] Diastolic blood 2019-08-22 99 mm[Hg] [facility] pressure 04:28:00 [facility] Heart rate 2019-08-22 66 /min [facility] of 04:28:00 [facility] Respiratory rate 2019-08-22 18 /min [facility] 04:28:00 [facility] Oxygen saturation 2019-08-22 95 /min [facility] in Arterial blood 04:28:00 [facility] by Pulse oxim[facility] Body temperature 2019-08-22 36.61 [place] [facility] 00:48:43 [facility] Body height 2019-08-22 152.4 cm [facility] of 00:44:00 [facility] Body weight 2019-08-22 86.183 kg University of 00:44:00 [facility] BMI 2019-08-22 37.11 kg/m2 [facility] of 00:44:00 [facility] Systolic blood 2019-08-22 159 mm[Hg] [facility] pressure 04:28:00 [facility] Diastolic blood 2019-08-22 99 mm[Hg] [facility] o f pressure 04:28:00 [facility] Heart rate 2019-08-22 66 /min [facility] of 04:28:00 [facility] Respiratory rate 2019-08-22 18 /min [facility] of 04:28:00 [facility] Oxygen saturation 2019-08-22 95 /min [facility] in Arterial blood 04:28:00 [facility] by Pulse oximetry [facility] Body temperature 2019-08-22 36.61 [place] [facility] 00:48:43 [facility] Body height 2019-08-22 152.4 cm [facility] of 00:44:00 [facility] Body weight 2019-08-22 86.183 kg University of 00:44:00 [facility] BMI 2019-08-22 37.11 kg/m2 [facility] of 00:44:00 [facility] Heart rate 2019-06-26 93 /min University of 00:53:00 [facility] Oxygen saturation 2019-06-26 94 /min University of in Arterial blood 00:53:00 [facility] by Pulse oximetry Branch Systolic blood 2019-06-26 149 mm[Hg] University of pressure 00:45:00 [facility] Diastolic blood 2019-06-26 106 mm[Hg] University o f pressure 00:45:00 [facility] Respiratory rate 2019-06-26 16 /min University of 00:45:00 [facility] Body temperature 2019-06-25 37.17 [place] University of 20:48:00 [facility] Body height 2019-06-25 152.4 cm University of 20:48:00 [facility] Body weight 2019-06-25 88.451 kg University of 20:48:00 [facility] BMI 2019-06-25 38.08 kg/m2 University of 20:48:00 [facility] Heart rate 2019-06-26 93 /min University of 00:53:00 [facility] Oxygen saturation 2019-06-26 94 /min University of in Arterial blood 00:53:00 [facility] brandy by Pulse oximetry Branch Systolic blood 2019-06-26 149 mm[Hg] University of pressure 00:45:00 [facility] Diastolic blood 2019-06-26 106 mm[Hg] University o f pressure 00:45:00 [facility] Respiratory rate 2019-06-26 16 /min University of 00:45:00 [facility] Body temperature 2019-06-25 37.17 [place] University of 20:48:00 [facility] Body height 2019-06-25 152.4 cm University of 20:48:00 [facility] Body weight 2019-06-25 88.451 kg University of 20:48:00 [facility] BMI 2019-06-25 38.08 kg/m2 University of 20:48:00 [facility] Systolic blood 2019-06-20 157 mm[Hg] University of pressure 00:30:00 [facility] Diastolic blood 2019-06-20 89 mm[Hg] University o f pressure 00:30:00 [facility] Heart rate 2019-06-20 70 /min University of 00:30:00 [facility] Oxygen saturation 2019-06-20 97 /min [facility] in Arterial blood 00:30:00 [facility] by Pulse oximetry Branch Respiratory rate 2019-06-20 14 /min University of 00:04:00 [facility] Body height 2019-06-19 152.4 cm University of 19:46:00 [facility] Body weight 2019-06-19 88.451 kg University of 19:46:00 [facility] BMI 2019-06-19 38.08 kg/m2 University of 19:46:00 [facility] Body temperature 2019-06-19 37.06 [place] University of 19:45:00 [facility] Systolic blood 2019-06-20 157 mm[Hg] University of pressure 00:30:00 [facility] Diastolic blood 2019-06-20 89 mm[Hg] University o f pressure 00:30:00 [facility] Heart rate 2019-06-20 70 /min University of 00:30:00 [facility] Oxygen saturation 2019-06-20 97 /min [facility] of in Arterial blood 00:30:00 [facility] by Pulse oximetry [facility] Respiratory rate 2019-06-20 14 /min University of 00:04:00 [facility] Body height 2019-06-19 152.4 cm University of 19:46:00 [facility] Body weight 2019-06-19 88.451 kg University of 19:46:00 [facility] BMI 2019-06-19 38.08 kg/m2 University of 19:46:00 [facility] Body temperature 2019-06-19 37.06 [place]oro University of 19:45:00 [facility] Systolic blood 2019-05-20 141 mm[Hg] University of pressure 02:59:00 [facility] Diastolic blood 2019-05-20 97 mm[Hg] University o f pressure 02:59:00 [facility] Heart rate 2019-05-20 86 /min University of 02:59:00 [facility] Respiratory rate 2019-05-20 16 /min University of 02:59:00 [facility] Oxygen saturation 2019-05-20 94 /min University of in Arterial blood 02:59:00 [facility] brandy by Pulse oximetry Branch Body temperature 2019-05-20 36.61 Roro University of 00:45:32 [facility] Body weight 2019-05-20 81.647 kg University of 00:16:00 [facility] BMI 2019-05-20 35.15 kg/m2 University of 00:16:00 [facility] Systolic blood 2019-05-20 141 mm[Hg] University of pressure 02:59:00 [facility] Diastolic blood 2019-05-20 97 mm[Hg] University o f pressure 02:59:00 [facility] Heart rate 2019-05-20 86 /min University of 02:59:00 [facility] Respiratory rate 2019-05-20 16 /min University of 02:59:00 [facility] Oxygen saturation 2019-05-20 94 /min University of in Arterial blood 02:59:00 [facility] by Pulse oximetry [place] Body temperature 2019-05-20 36.61 [place] University of 00:45:32 [facility] Body weight 2019-05-20 81.647 kg University of 00:16:00 [facility] BMI 2019-05-20 35.15 kg/m2 University of 00:16:00 [facility] Systolic blood 2018-12-18 134 mm[Hg] University of pressure 13:38:00 [facility] Diastolic blood 2018-12-18 96 mm[Hg] University o f pressure 13:38:00 [facility] Heart rate 2018-12-18 75 /min University of 13:38:00 [facility] Respiratory rate 2018-12-18 18 /min University of 13:38:00 [facility] Body height 2018-12-18 152.4 cm University of 13:38:00 [facility] Body weight 2018-12-18 88.451 kg University of 13:38:00 [facility] BMI 2018-12-18 38.08 kg/m2 University of 13:38:00 [facility] Systolic blood 2018-12-08 159 mm[Hg] University of pressure 20:03:00 [facility] Diastolic blood 2018-12-08 111 mm[Hg] University o f pressure 20:03:00 [facility] Body height 2018-12-08 152.4 cm University of 20:03:00 [facility] Body weight 2018-12-08 88.451 kg University of 20:03:00 [facility] BMI 2018-12-08 38.08 kg/m2 University of 20:03:00 [facility] Systolic blood 2018-12-05 180 mm[Hg] University of pressure 13:04:00 [facility] Diastolic blood 2018-12-05 110 mm[Hg] University o f pressure 13:04:00 [facility] Heart rate 2018-12-05 74 /min University of 13:04:00 [facility] Respiratory rate 2018-12-05 18 /min University of 12:57:00 [facility] Body height 2018-12-05 152.4 cm University of 12:57:00 [facility] Body weight 2018-12-05 88.451 kg University of 12:57:00 [facility] BMI 2018-12-05 38.08 kg/m2 University of 12:57:00 [facility] Systolic blood 2018-12-01 139 mm[Hg] University of pressure 23:03:00 [facility] Diastolic blood 2018-12-01 72 mm[Hg] University o f pressure 23:03:00 [facility] Heart rate 2018-12-01 64 /min University of 23:03:00 [facility] Respiratory rate 2018-12-01 13 /min University of 22:02:00 [facility] Body temperature 2018-12-01 36.33 Roro University of 19:27:00 [facility] Body height 2018-12-01 152.4 cm University of 19:27:00 [facility] Body weight 2018-12-01 88.451 kg University of 19:27:00 [facility] BMI 2018-12-01 38.08 kg/m2 University of 19:27:00 [facility] Oxygen saturation 2018-12-01 88 /min [facility] Arterial blood 19:27:00 [facility] by Pulse oximetry Branch Systolic blood 2018-11-17 145 mm[Hg] reported to RN University of pressure 17:00:00 [facility] Diastolic blood 2018-11-17 80 mm[Hg] reported to RN University pressure 17:00:00 [facility] Heart rate 2018-11-17 54 /min University 17:00:00 [facility] Body temperature 2018-11-17 36.72 [place] University 17:00:00 [facility] Respiratory rate 2018-11-17 16 /min University 17:00:00 [facility] Oxygen saturation 2018-11-17 95 /min [facility] Arterial blood 17:00:00 [facility] by Pulse oximetry [place] Body height 2018-11-15 152.4 cm University of 22:07:00 [facility] Body weight 2018-11-15 88.587 kg [facility] 21:18:00 [facility] BMI 2018-11-15 38.14 kg/m2 [facility] 21:18:00 [facility] Procedures Procedure Date / Time Performing Source Performed Clinician LIPASE 2022-07-31 [facility] 09:45:00 [facility] BASIC METABOLIC PANEL (NA, K, CL, 2022-07-31 [facility] of CO2, GLUCOSE, BUN, CREATININE, CA) 09:45:00 [facility] CBC WITH DIFF 2022-07-31 [facility] 09:45:00 [facility] URINALYSIS 2022-07-30 Mariana Ramirez of 23:17:[address] [facility] [address] ABDOMEN PELVIS WO CONTRAST 2022-07-30 Mariana Ramirez Un iversity of 23:16:08 [facility] LIPASE 2022-07-30 Mariana Ramirez [facility] 23:12:00 [facility] COMP. METABOLIC PANEL ([id number]) 2022-07-30 Mariana Ramirez Un iversity of 23:12:00 [facility] CBC WITH DIFF 2022-07-30 Mariana Ramirez [facility] 23:12:00 [facility] PROTHROMBIN TIME / INR 2022-07-30 Mariana Ramirezit y of 23:12:00 [facility] ACTIVATED PARTIAL THRMPLAS KIMANI 2022-07-30 Mariana Ramirez niversity of 23:12:00 [facility] CONSENT/REFUSAL FOR DIAGNOSIS AND 2022-07-30 Doctor Dung santiago, [facility] 21:55:41 [place] [facility] MR ABDOMEN W WO CONTRAST MRCP 2022-04-26 Rigoberto Menendez Un iversity of 15:53:00 [facility] GAMMA GLUTAMYLTRANSFERASE 2022-04-26 Rigoberto Menendez Univer sity of 10:54:00 [facility] THYROID STIMULATING HORMONE 2022-04-26 Juan Luis, Rigoberto [facility] ersity of 10:54:00 [facility] PHOSPHORUS 2022-04-26 Juan Luis, [facility] University of 10:53:00 [facility] CREATINE KINASE 2022-04-26 Juan Luis, [facility] University of 10:53:00 [facility] MAGNESIUM 2022-04-26 [facility] 10:53[facility]00 [facility] COMP. METABOLIC PANEL ([id number]) 2022-04-26 Rigoberto Menendez Un iversity of 10:53:00 [facility] LIPID PANEL ([id number])(TOTAL 2022-04-26 Rigoberto Menendez [facility] sity of CHOLESTEROL, TRIGLYCERIDES, HDL) 10:53:00 [facility] CBC WITH DIFF 2022-04-26 Rigoberto Menendez [facility] 10:53:00 [facility] N-TERMINAL PRO-BNP 2022-04-26 [facility], [facility] 10:53:[address] [facility] [address] ABDOMEN PELVIS W CONTRAST 2022-04-26 Jadyn Skaggs Uni versity of 00:12:00 [facility] LIPASE 2022-04-25 Jadyn Skaggs of 23:25:00 [facility] COMP. METABOLIC PANEL ([id number]) 2022-04-25 Jadyn Skaggs Un iversity of 23:25:00 [facility] CBC WITH DIFF 2022-04-25 Jadyn Skaggs of 23:25:00 [facility] GLYCOSYLATED HEMOGLOBIN (A1C) 2022-04-25 Rigoberto Menendez Un iversity of 23:25:00 [facility] URINALYSIS 2022-04-25 Jadyn Skaggs of 23:25:00 [facility] CONSENT/REFUSAL FOR DIAGNOSIS AND 2022-04-25 Doctor Dung santiago, [facility] 22:43:11 [place] [facility] XR HAND 3+ VW RIGHT 2022-04-08 [facility] 19:48:55 [facility] CONSENT/REFUSAL FOR DIAGNOSIS AND 2022-04-08 Doctor Dung santiago, [facility] 18:51:24 [place] [facility] COVID-19 (ID NOW RAPID TESTING) 2022-02-06 [facility] 21:14:00 [facility] BASIC METABOLIC PANEL (NA, K, CL, 2022-02-06 Priyank Robert [facility] of CO2, GLUCOSE, BUN, CREATININE, CA) 08:31:00 [facility] CBC WITH DIFF 2022-02-06 Lenard Robert [facility] 08:31:00 [facility] XR SMALL BOWEL SERIES 2022-02-05 Valorie Maxwell [facility] 19:21:09 [facility] BASIC METABOLIC PANEL (NA, K, CL, 2022-02-04 KeenanVianney [facility] of CO2, GLUCOSE, BUN, CREATININE, CA) 07:56:00 [facility] CBC WITH DIFF 2022-02-04 [facility] Counts include 234 beds at the [facility] 07:56:00 [facility] URINE CULTURE 2022-02-03 [facility] Counts include 234 beds at the [facility] 23:42:00 [facility] HEPATIC FUNCTION PANEL ([id number]) 2022-02-03 Geovanna Hooper niversity of (ALB,T.PRO,BILI 23:30:00 [facility],BU/BC,ALT,AST,ALK PHOS) [place] ABDOMEN PELVIS W CONTRAST 2022-02-03 Nguyễn Montano [facility] versity of 17:51:46 [facility] URINE DRUG (IMMUNOASSAY) - 2022-02-03 Nguyễn Montano Unive rsity of COMPREHENSIVE DRUG SCREEN 16:01:00 [facility] URINALYSIS 2022-02-03 [facility]n [facility] 16:01:00 [facility] AMYLASE 2022-02-03 [facility]n [facility] 16:00:00 [facility] LIPASE 2022-02-03 [facility]n [facility] 16:00:00 [facility] COMP. METABOLIC PANEL ([id number]) 2022-02-03 Nguyễn Montano Un iversity of 16:00:00 [facility] LIPID PANEL ([id number])(TOTAL 2022-02-03 [facility] of CHOLESTEROL, TRIGLYCERIDES, HDL) 16:00:00 [facility] ETHANOL 2022-02-03 Nguyễn Montano [facility] 16:00:00 [facility] SERUM DRUG (IMMUNOASSAY) - 2022-02-03 Nguyễn Montano Unive rsity of COMPREHENSIVE DRUG SCREEN 16:00:00 [facility] CBC WITH DIFF 2022-02-03 Nguyễn Montano [facility] 16:00:[address] [facility] [address] ABDOMEN PELVIS W CONTRAST 2022-01-26 Meka Hammonds Un iversity of 21:34:36 [facility] LIPASE 2022-01-26 [facility] 21:07:00 [facility] COMP. METABOLIC PANEL ([id number]) 2022-01-26 Meka Hammonds U niversity of 21:07:00 [facility] ETHANOL 2022-01-26 [facility] 21:07:00 [facility] CBC WITH DIFF 2022-01-26 [facility] 21:07:00 [facility] URINALYSIS 2022-01-26 [facility]onds [facility] 21:07:00 [facility] URINE DRUG (IMMUNOASSAY) - 2022-01-26 Meka Hammonds [facility] ersity of COMPREHENSIVE DRUG SCREEN W/O 21:07:00 [facility] CONSENT/REFUSAL FOR DIAGNOSIS AND 2022-01-26 Doctor Dung santiago, [facility] 20:04:49 [place] [facility] INSURANCE CORRESPONDENCE 2022-01-02 Doctor Unassigned, [facility] ersity of 05:01:00 [place] [facility] CT ABDOMEN PELVIS W CONTRAST 2021-11-02 Mariana Ramirez Uni versity of 12:20:54 [facility] LIPASE 2021-11-02 Mariana Ramirez of 10:40:00 [facility] COMP. METABOLIC PANEL ([id number]) 2021-11-02 Mariana Ramirez Un iversity of 10:40:00 [facility] CBC WITH DIFF 2021-11-02 Mariana Ramirez of 10:40:00 [facility] PROTHROMBIN TIME / INR 2021-11-02 Mariana Ramirezit y of 10:40:00 [facility] ACTIVATED PARTIAL THRMPLAS KIMANI 2021-11-02 Mariana Ramirez U niversity of 10:40:00 [facility] CONSENT/REFUSAL FOR DIAGNOSIS AND 2021-11-02 Doctor Dung santiago, [facility] 09:27:03 [place] [facility] AUTHORIZATION FOR RELEASE OF PHI 2021-10-25 Doctor Unassclaudia Counts include 234 beds at the [facility] 05:01:00 [place] [facility] TIME OR (NON-REPORTABLE) 2021-09-29 Zulema Rodriguez [facility] ersity of 14:39:00 [facility] TIME OR (NON-REPORTABLE) 2021-09-29 Zulema Rodriguez [facility] ersity of 14:39:00 [facility] FOOT ARTHRODESIS 2021-09-29 Zulema Rodriguez [facility] 12:40:00 [facility] DAY SURGERY - ADC 2021-09-29 [facility] 05:01:00 [place] [facility] ASSIGNMENT OF BENEFITS 2021-09-27 Doctor Unassigned, Univer sity of 15:03:24 [place] [facility] EXTERNAL PROVIDER RECORDS 2021-09-20 Doctor Unassigned, Uni versity of 05:01:00 [place] [facility] EXTERNAL PROVIDER RECORDS 2021-09-20 Doctor Unassigned, Uni versity of 05:01:00 [place] [facility] EXTERNAL PROVIDER RECORDS 2021-09-19 Doctor Unassigned, Uni versity of 05:01:00 [place] [facility] EXTERNAL PROVIDER RECORDS 2021-09-19 Doctor Unassigned, Uni versity of 05:01:00 [place] [facility] MAGNESIUM 2021-09-08 [facility] of 09:16:00 [facility] COMP. METABOLIC PANEL ([id number]) 2021-09-08 [facility] Un iversity of 09:16:00 [facility] CBC WITH DIFF 2021-09-08 [facility] of 09:16:00 [facility] MAGNESIUM 2021-09-07 [facility] of 07:41:00 [facility] HEPATIC FUNCTION PANEL ([id number]) 2021-09-07 [facility] niversity of (ALB,T.PRO,BILI 07:41:00 [facility],BU/BC,ALT,AST,ALK PHOS) [place] BASIC METABOLIC PANEL (NA, K, CL, 2021-09-07 [facility] of CO2, GLUCOSE, BUN, CREATININE, CA) 07:41:00 [facility] CBC WITH DIFF 2021-09-07 [facility], [facility] of 07:41:00 [facility] MR ABDOMEN W WO CONTRAST MRCP 2021-09-06 Nguyễn, [facility] iversity of 15:50:18 [facility] MAGNESIUM 2021-09-06 [facility], [facility] of 09:32:00 [facility] HEPATIC FUNCTION PANEL ([id number]) 2021-09-06 Jerry, [facility] of (ALB,T.PRO,BILI 09:32:00 [facility],BU/BC,ALT,AST,ALK PHOS) [place] BASIC METABOLIC PANEL (NA, K, CL, 2021-09-06 [facility], [facility] of CO2, GLUCOSE, BUN, CREATININE, CA) 09:32:00 [facility] MAGNESIUM 2021-09-05 [facility], [facility] of 08:23:00 [facility] HEPATIC FUNCTION PANEL ([id number]) 2021-09-05 [facility], [facility] niversity of (ALB,T.PRO,BILI 08:23:00 [facility],BU/BC,ALT,AST,ALK PHOS) [place] BASIC METABOLIC PANEL (NA, K, CL, 2021-09-05 [facility] CO2, GLUCOSE, BUN, CREATININE, CA) 08:23:00 [facility] CBC WITH DIFF 2021-09-05 [facility], [facility] of 08:23:00 [facility] MAGNESIUM 2021-09-04 Nguyễn, [facility] of 09:15:00 [facility] HEPATIC FUNCTION PANEL ([id number]) 2021-09-04 [facility], [facility] niversity of (ALB,T.PRO,BILI 09:15:00 [facility] T,BU/BC,ALT,AST,ALK PHOS) [place] BASIC METABOLIC PANEL (NA, K, CL, 2021-09-04 [facility] CO2, GLUCOSE, BUN, CREATININE, CA) 09:15:00 [facility] CBC WITH DIFF 2021-09-04 [facility], [facility] of 09:15:00 [facility] MAGNESIUM 2021-09-03 Nguyễn, [facility] of 09:25:00 [facility] COMP. METABOLIC PANEL ([id number]) 2021-09-03 [facility], [facility] iversity of 09:25:00 [facility] CBC WITH DIFF 2021-09-03 [facility] of 09:25:00 [facility] CMV BY PCR 2021-09-03 [facility] of 03:30:00 [facility] HSV 1&2, VZV NAAT 2021-09-03 [facility], [facility] of 03:30:00 [facility] ACETAMINOPHEN 2021-09-02 Nguyễn, [facility] of 15:34:00 [facility] HEPATITIS B SURFACE ANTIBODY 2021-09-02 [facility], [facility] Uni versity of 15:34:00 [facility] HCV ANTIBODY 2021-09-02 [facility], [facility] of 15:34:00 [facility] HBC ANTIBODY (IGM & IGG) 2021-09-02 [facility] ity of 15:34:00 [facility] CBC WITH DIFF 2021-09-02 [facility], [facility] of 15:33:00 [facility] EBV QUANTITATIVE PCR 2021-09-02 [facility], [facility] of 15:33:00 [facility] SMOOTH MUSCLE AB,IGG W/REFLEX 2021-09-02 [facility], [facility] iversity of 15:32:00 [facility] PHOSPHORUS 2021-09-02 [facility], [facility] of 15:32:00 [facility] MAGNESIUM 2021-09-02 [facility], [facility] of 15:32:00 [facility] FERRITIN SERUM 2021-09-02 [facility], [facility] of 15:32:00 [facility] CERULOPLASMIN 2021-09-02 [facility], [facility] of 15:32:00 [facility] ALPHA 1 ANTITRYPSIN 2021-09-02 [facility], [facility] o f 15:32:00 [facility] IMMUNOGLOBULIN G 2021-09-02 [facility], [facility] of 15:32:00 [facility] COMP. METABOLIC PANEL ([id number]) 2021-09-02 [facility], [facility] iversity of 15:32:00 [facility] ANTI-NUCLEAR ANTIBODY SCREEN 2021-09-02 [facility], [facility] versity of 15:32:00 [facility] HEPATITIS B SURFACE ANTIGEN 2021-09-02 [facility], [facility] ersity of 15:32:00 [facility] HAV ANTIBODY (IGG AND IGM) 2021-09-02 [facility] rs[facility] 15:32:00 [facility] ANTI-NUCLEAR ANTIBODY TITER 2021-09-02 [facility] ersity of 15:32:00 [facility] ANTI-NUCLEAR ANTIBODY-PATHOLOGIST 2021-09-02 [facility] of INTERPRETATION 15:32:00 [facility] PROTHROMBIN TIME / INR 2021-09-02 [facility] Universit y of 15:31:00 [facility] HB ECG ROUTINE & RHYTHM STRIP 2021-09-02 Flower Sheryl Un iversity of 13:42:19 [facility] US ABDOMEN LIMITED 2021-09-02 CrenshawSheryl University of 05:27:56 [facility] HB ECG ROUTINE & RHYTHM STRIP 2021-09-01 Jaki Polanco Un iversity of 18:43:41 [facility] XR CHEST 1 VW 2021-09-01 Jaki Polanco [facility] 18:38:41 [facility] LIPASE 2021-09-01 Jaki Polanco [facility] 18:37:00 [facility] MAGNESIUM 2021-09-01 Jaki Polanco [facility] of 18:37:00 [facility] TROPONIN I 2021-09-01 Jaki Polanco [facility] 18:37:00 [facility] COMP. METABOLIC PANEL ([id number]) 2021-09-01 Jaki Polanco Un iversity of 18:37:00 [facility] CBC WITH DIFF 2021-09-01 Jaki Polanco [facility] 18:37:00 [facility] URINALYSIS 2021-09-01 Jaki Polanco [facility] of 18:37:00 [facility] HOSPITAL ADMISSION 2021-09-01 Doctor Unassigned, University of 05:01:00 [place] [facility] CT ABDOMEN PELVIS W CONTRAST 2021-08-27 Maru Baez [facility] of 17:00:42 [facility] URINALYSIS 2021-08-27 Maru Baez [facility] of 16:26:00 [facility] LIPASE 2021-08-27 Maru Baez [facility] 15:59:00 [facility] TROPONIN I 2021-08-27 Maru Baez [facility] 15:59:00 [facility] COMP. METABOLIC PANEL ([id number]) 2021-08-27 Maru Baez [facility] 15:59:00 [facility] CBC WITH DIFF 2021-08-27 Maru Baez [facility] 15:59:00 [facility] CONSENT/REFUSAL FOR DIAGNOSIS AND 2021-08-27 [facility] 15[facility]44:40 [place] [facility] POCT GLUCOSE (AUTOMATED) 2021-07-28 Pasha Hinojosa ity of 22:28:00 [facility] RENAL ARTERY DUPLEX - BY VASCULAR 2021-07-28 G[facility]ito [facility] of LAB 20:54:00 Fatou [facility] POCT GLUCOSE (AUTOMATED) 2021-07-28 Pasha Hinojosa Univers ity of 16:45:00 [facility] POCT GLUCOSE (AUTOMATED) 2021-07-28 Pasha Hinojosa ity of 12:52:00 [facility] LIPASE 2021-07-28 Pasha Hinojosa [facility] of 09:31:00 [facility] COMP. METABOLIC PANEL ([id number]) 2021-07-28 Pasha Hinojosa Un iversity of 09:31:00 [facility] CBC WITH DIFF 2021-07-28 Pasha Hinojosa University of 09:31:00 [facility] POCT GLUCOSE (AUTOMATED) 2021-07-28 Pasha Hinojosa ity of 09:08:00 [facility] POCT GLUCOSE (AUTOMATED) 2021-07-28 Pasha Hinojosa ity of 04:38:00 [facility] POCT GLUCOSE (AUTOMATED) 2021-07-28 Pasha Hinojosa Univers ity of 01:02:00 [facility] POCT GLUCOSE (AUTOMATED) 2021-07-27 Pasha Hinojosa Univers ity of 21:47:00 [facility] POCT GLUCOSE (AUTOMATED) 2021-07-27 Pasha Hinojosa Univers ity of 16:48:00 [facility] POCT GLUCOSE (AUTOMATED) 2021-07-27 Pasha Hinojosa ity of 12:43:00 [facility] MAGNESIUM 2021-07-27 [facility] 08:55:00 Fatou [facility] BASIC METABOLIC PANEL (NA, K, CL, 2021-07-27 Gatito [facility] of CO2, GLUCOSE, BUN, CREATININE, CA) 08:55:00 [facility] CBC WITH DIFF 2021-07-27 [facility] of 08:55:00 [facility] POCT GLUCOSE (AUTOMATED) 2021-07-27 Pasha Hinojosa [facility] ity of 08:47:00 [facility] POCT GLUCOSE (AUTOMATED) 2021-07-27 Pasha Hinojosa Univers ity of 06:48:00 [facility] POCT GLUCOSE (AUTOMATED) 2021-07-27 Pasha Hinojosa [facility] ity of 01:50:00 [facility] POCT GLUCOSE (AUTOMATED) 2021-07-26 Pasha Hinojosa [facility] ity of 21:50:00 [facility] POCT GLUCOSE (AUTOMATED) 2021-07-26 Pasha Hinojosa [facility] ity of 16:50:00 [facility] LIPASE 2021-07-26 Jesusita Mederos [facility] of 09:59:00 [facility] MAGNESIUM 2021-07-26 Gatito [facility] of 09:59:00 [facility] BASIC METABOLIC PANEL (NA, K, CL, 2021-07-26 Jesusita Mederos [facility] of CO2, GLUCOSE, BUN, CREATININE, CA) 09:59:00 [facility] CBC WITH DIFF 2021-07-26 Jesusita Mdeeros [facility] of 09:59:00 [facility] EKG-12 LEAD 2021-07-25 Pasha Hinojosa [facility] of 23:35:46 [facility] POCT GLUCOSE (AUTOMATED) 2021-07-25 Pasha Hinojosa [facility] ity of 14:19:00 [facility] HEPATIC FUNCTION PANEL ([id number]) 2021-07-25 Jesusita Mederos niversity of (ALB,T.PRO,BILI 12:28:00 [facility],BU/BC,ALT,AST,ALK PHOS) [place] BASIC METABOLIC PANEL (NA, K, CL, 2021-07-25 Jesusita Mederos of CO2, GLUCOSE, BUN, CREATININE, CA) 12:28:00 [facility] CBC WITH DIFF 2021-07-25 Jesusita Mederos [facility] of 10:59:00 [facility] MAGNESIUM 2021-07-24 Abdullah, [facility] of 10:49:00 [facility] HEPATIC FUNCTION PANEL ([id number]) 2021-07-24 Pasha Hinojosa U niversity of (ALB,T.PRO,BILI 10:49:00 [facility],BU/BC,ALT,AST,ALK PHOS) [place] BASIC METABOLIC PANEL (NA, K, CL, 2021-07-24 Brigido Hinojosa University of CO2, GLUCOSE, BUN, CREATININE, CA) 10:49:00 [facility] CBC WITH DIFF 2021-07-24 Pasha Hinojosa [facility] of 09:16:00 [facility] PHOSPHORUS 2021-07-24 [facility] of 00:43:[address] [facility] [address] ABDOMEN PELVIS W CONTRAST 2021-07-23 Meka Hammonds Un iversity of 22:53:27 [facility] LIPASE 2021-07-23 [facility] 21:19:00 [facility] MAGNESIUM 2021-07-23 [facility] 21:19:00 [facility] TROPONIN I 2021-07-23 [facility] 21:19:00 [facility] COMP. METABOLIC PANEL ([id number]) 2021-07-23 Meka Hammonds U niversity of 21:19:00 [facility] D-DIMER 2021-07-23 [facility] 21:19:00 [facility] CBC WITH DIFF 2021-07-23 [facility] 21:18:00 [facility] URINALYSIS 2021-07-23 [facility] 21:18:00 [facility] XR CHEST 1 VW 2021-07-23 [facility] 21:03:00 [facility] HB ECG ROUTINE & RHYTHM STRIP 2021-07-23 Meka Hammonds U niversity of 20:31:58 [facility] CONSENT/REFUSAL FOR DIAGNOSIS AND 2021-07-23 Doctor Dung santiago, [facility] of TREATMENT 20:20:48 [place] [facility] ESOPHAGOGASTRODUODENOSCOPY 2021-07-04 Gulshan Piper rsity of 17:04:00 [facility] EGD (ENDO) 2021-07-04 Jeannie Slade University of 16:11:40 [facility] EGD (ENDO) 2021-07-04 SladeJeannie Weems of 16:11:40 [facility] DAY SURGERY - ADC 2021-07-04 Doctor Unasschad, University of 05:01:00 [place] [facility] EXTERNAL PROVIDER RECORDS 2021-06-23 Doctor Unassigned, Uni versity of 06:01:00 [place] [facility] EXTERNAL PROVIDER RECORDS 2021-06-23 Doctor Unassigned, Uni versity of 06:01:00 [place] [facility] CT ABDOMEN PELVIS W CONTRAST 2021-06-04 Mariana Ramirez Uni versity of 01:33:00 [facility] US GALL BLADDER 2021-06-03 Mariana Ramirez of 23:57:52 [facility] LIPASE 2021-06-03 Mariana Ramirez of 20:30:00 [facility] TROPONIN I 2021-06-03 Mariana Ramirez of 20:30:00 [facility] COMP. METABOLIC PANEL ([id number]) 2021-06-03 Mariana Ramirez iversity of 20:30:00 [facility] CBC WITH DIFF 2021-06-03 Mariana Ramirez of 20:30:00 [facility] PROTHROMBIN TIME / INR 2021-06-03 Mariana Ramirezit y of 20:30:00 [facility] ACTIVATED PARTIAL THRMPLAS KIMANI 2021-06-03 Mariana Ramirez niversity of 20:30:00 [facility] N-TERMINAL PRO-BNP 2021-06-03 Mariana Ramirez of 20:30:00 [facility] COVID-19 (ID NOW RAPID TESTING) 2021-06-03 Mariana Ramirez of 20:30:00 [facility] LACTIC ACID WHOLE BLOOD 2021-06-03 Mariana Ramirezi ty of 20:26:00 [facility] XR CHEST 1 VW 2021-06-03 Mariana Ramirez of 20:15:36 [facility] CONSENT/REFUSAL FOR DIAGNOSIS AND 2021-06-03 Doctor Dung santiago, [facility] of [facility] 19:39:18 [place] [facility] EKG-12 LEAD 2021-05-22 Consuelo Avendaño of 06:47:[address] [facility] [address] CHEST PULMONARY ANGIOGRAM 2021-05-22 Consuelo Avendaño Uni versity of 06:08:50 [facility] TROPONIN I 2021-05-22 [facility] 05:41:00 [facility] COMP. METABOLIC PANEL ([id number]) 2021-05-22 Consuelo Avendaño Un iversity of 05:41:00 [facility] CBC WITH DIFF 2021-05-22 [facility] 05:41:00 [facility] N-TERMINAL PRO-BNP 2021-05-22 Jarocho [facility] of 05:41:00 [facility] NOTICE OF PRIVACY PRACTICES 2021-05-22 Doctor Unasschad, U niversity of 05:17:11 [place] [facility] CONSENT/REFUSAL FOR DIAGNOSIS AND 2021-05-22 Doctor Dung santiago, [facility] 05:13:31 [place] [facility] POCT MOLECULAR FLU 2021-05-18 [facility] of 15:26:00 [facility] POCT MOLECULAR STREP 2021-05-18 [facility] of 15:22:00 [facility] COVID-19 (ID NOW RAPID TESTING) 2021-04-15 Jarocho [facility] of 20:37:[address] [facility] [address] ABDOMEN PELVIS W CONTRAST 2021-04-15 Consuelo Avendaño Uni versity of 20:23:27 [facility] LIPASE 2021-04-15 Jarocho [facility] of 20:23:00 [facility] TROPONIN I 2021-04-15 Jarocho [facility] of 20:23:00 [facility] COMP. METABOLIC PANEL ([id number]) 2021-04-15 Consuelo Avendaño Un iversity of 20:23:00 [facility] CBC WITH DIFF 2021-04-15 [facility] 20:23:00 [facility] URINALYSIS 2021-04-15 Jarocho [facility] of 20:23:00 [facility] CONSENT/REFUSAL FOR DIAGNOSIS AND 2021-04-15 Doctor Dung santiago, [facility] 19:33:08 [place] [facility] CT ABDOMEN PELVIS W CONTRAST 2021-03-26 Consuelo Avendaño Uni versity of 02:08:33 [facility] LIPASE 2021-03-26 Juveutfalguni [facility] of 00:57:00 [facility] TROPONIN I 2021-03-26 [facility] of 00:57:00 [facility] COMP. METABOLIC PANEL ([id number]) 2021-03-26 Consuelo Avendaño Un iversity of 00:57:00 [facility] CBC WITH DIFF 2021-03-26 [facility] of 00:57:00 [facility] URINALYSIS 2021-03-26 [facility] of 00:57:00 [facility] N-TERMINAL PRO-BNP 2021-03-26 [facility] of 00:57:00 [facility] XR CHEST 1 VW 2021-03-26 [facility] of 00:17:07 [facility] CONSENT/REFUSAL FOR DIAGNOSIS AND 2021-03-25 Doctor Dung santiago, [facility] 23:45:22 [place] [facility] SARS-COV-2 COVID-19 VACCINE 2021-03-25 Doctor Unassigned, U niversity of BOOSTER,0.25ML,IM (MODERNA) 17:05:57 [place] [facility] COMP. METABOLIC PANEL ([id number]) 2021-03-20 Meka Hammonds U niversity of 23:40:[address] [facility] CT ABDOMEN PELVIS W CONTRAST 2021-03-20 Meka Hammonds Un iversity of 23:00:43 [facility] LIPASE 2021-03-20 Meka Hammonds [facility] of 22:41:00 [facility] TROPONIN I 2021-03-20 Meka Hammonds [facility] of 22:41:00 [facility] CBC WITH DIFF 2021-03-20 Meka Hammonds [facility] of 22:41:00 [facility] NOTICE OF PRIVACY PRACTICES 2021-03-20 Doctor Unassigned, U niversity of 21:43:47 [place] [facility] CONSENT/REFUSAL FOR DIAGNOSIS AND 2021-03-20 Doctor Dung santiago, [facility] 21:43:12 [place] [facility] CT ABDOMEN PELVIS W CONTRAST 2021-02-12 Rosalinda Fisher U niversity of 22:22:23 [facility] LIPASE 2021-02-12 [facility] of 19:54:00 [facility] COMP. METABOLIC PANEL ([id number]) 2021-02-12 [facility] of 19:54:00 [facility] CBC WITH DIFF 2021-02-12 [facility] of 19:54:00 [facility] URINALYSIS 2021-02-12 [facility] of 19:54:00 [facility] CONSENT/REFUSAL FOR DIAGNOSIS AND 2021-02-12 [facility] 19:03:31 [place] [facility] COMP. METABOLIC PANEL ([id number]) 2021-01-18 [facility] 04:11:[address] [facility] [address] ABDOMEN PELVIS W CONTRAST 2021-01-18 [facility] 03:35:25 [facility] LIPASE 2021-01-18 [facility] 02:54:00 [facility] CBC WITH DIFF 2021-01-18 [facility] 02:54:00 [facility] URINALYSIS 2021-01-18 [facility] 02:54:00 [facility] CONSENT/REFUSAL FOR DIAGNOSIS AND 2021-01-18 [facility] 02:23:56 [place] [facility] XR CHEST 2 VW 2021-01-07 [facility] 16:49:00 [facility] COVID-19 (ID NOW RAPID TESTING) 2020-12-30 [facility] 22:02:[address] [facility] [address] ABDOMEN PELVIS W CONTRAST 2020-12-30 [facility] 18:49:58 [facility] LIPASE 2020-12-30 [facility] 18:29:00 [facility] HEPATIC FUNCTION PANEL ([id number]) 2020-12-30 [facility] (ALB,T.PRO,BILI 18:29:00 [facility],BU/BC,ALT,AST,ALK PHOS) [place] BASIC METABOLIC PANEL (NA, K, CL, 2020-12-30 [facility] CO2, GLUCOSE, BUN, CREATININE, CA) 18:29:00 [facility] CBC WITH DIFF 2020-12-30 [facility] 18:29:00 [facility] URINALYSIS 2020-12-30 [facility] 18:29:00 [facility] CONSENT/REFUSAL FOR DIAGNOSIS AND 2020-12-30 [facility] 18:01:18 [place] [facility] PELVIS COMPLETE WITH 2020-12-23 Vira Washburn ty of TRANSVAGINAL 21:36:03 [facility] US GALL BLADDER 2020-12-05 [facility] 22:39:34 F [facility] LACTIC ACID WHOLE BLOOD 2020-12-05 Eliana Poole [facility] sity of 22:16:00 F [facility] CT ABDOMEN PELVIS W CONTRAST 2020-12-05 Eliana Poole U niversity of 21:23:47 F [facility] ASSIGNMENT OF BENEFITS 2020-12-05 Doctor Unassigned, [facility] sity of 20:53:22 [place] [facility] LIPASE 2020-12-05 [facility] 20:12:00 [facility] COMP. METABOLIC PANEL ([id number]) 2020-12-05 [facility] 20:12:00 [facility] CBC WITH DIFF 2020-12-05 [facility] 20:12:00 [facility] URINALYSIS 2020-12-05 [facility] 20:12:00 [facility] CONSENT/REFUSAL FOR DIAGNOSIS AND 2020-12-05 [facility] 18:56:42 [place] [facility] MAGNESIUM 2020-10-12 [facility] 08:21:00 [facility] HEPATIC FUNCTION PANEL ([id number]) 2020-10-12 [place], niversity of (ALB,T.PRO,BILI 08:21:00 [facility],BU/BC,ALT,AST,ALK PHOS) Branch LIPID PANEL ([id number])(TOTAL 2020-10-12 Hernan, [facility] sit of CHOLESTEROL, TRIGLYCERIDES, HDL) 08:21:00 [facility] CBC WITH DIFF 2020-10-12 [facility] 08:21:00 [facility] PROTHROMBIN TIME / INR 2020-10-12 [place], Universit y of 08:21:00 [facility] ACTIVATED PARTIAL THRMPLAS KIMANI 2020-10-12 [place], U niversity of 08:21:00 [facility] HEPATIC FUNCTION PANEL ([id number]) 2020-10-12 [place], U niversity of (ALB,T.PRO,BILI 03:31:00 [facility] T,BU/BC,ALT,AST,ALK PHOS) [place] BASIC METABOLIC PANEL (NA, K, CL, 2020-10-12 [facility] CO2, GLUCOSE, BUN, CREATININE, CA) 03:31:00 [facility] COVID-19 (ID NOW RAPID TESTING) 2020-10-11 Mariana Ramirez of 16:15:00 [facility] US GALL BLADDER 2020-10-11 Mariana Ramirez of 15:26:59 [facility] HB ECG ROUTINE & RHYTHM STRIP 2020-10-11 Mariana Ramirez iversity of 13:53:00 [facility] LIPASE 2020-10-11 Mariana Ramirez of 13:49:00 [facility] TROPONIN I 2020-10-11 Mariana Ramirez [facility] of 13:49:00 [facility] HEPATIC FUNCTION PANEL ([id number]) 2020-10-11 Mariana Ramirez niversity of (ALB,T.PRO,BILI 13:49:00 [facility] T,BU/BC,ALT,AST,ALK PHOS) [place] BASIC METABOLIC PANEL (NA, K, CL, 2020-10-11 Florina Ramirez University of CO2, GLUCOSE, BUN, CREATININE, CA) 13:49:00 [facility] CBC WITH DIFF 2020-10-11 Mariana Ramirez of 13:49:00 [facility] URINALYSIS 2020-10-11 Mariana Ramirez [facility] of 13:49:00 [facility] CONSENT/REFUSAL FOR DIAGNOSIS AND 2020-10-11 Doctor Dung santiago, [facility] 13:29:15 [place] [facility] COVID-19 (ID NOW RAPID TESTING) 2020-10-04 Maisha Reyes [facility] of 23:19:00 [facility] URINALYSIS 2020-10-04 Maisha Reyes [facility] of 23:18:00 [facility] LIPASE 2020-10-04 Maisha Reyes [facility] of 23:17:00 [facility] COMP. METABOLIC PANEL ([id number]) 2020-10-04 Maisha Reyes Un iversity of 23:17:00 [facility] CBC WITH DIFF 2020-10-04 Maisha Reyes [facility] of 23:17:00 [facility] CONSENT/REFUSAL FOR DIAGNOSIS AND 2020-08-05 Doctor Dung santiago, [facility] 13:05:44 [place] [facility] FL TIME OR (NON-REPORTABLE) 2020-07-18 Moise Gamez U niversity of 12:50:00 [facility] FL TIME OR (NON-REPORTABLE) 2020-07-18 Moise Gamez niversity of 12:50:00 [facility] BLOCK EPIDURAL 2020-07-18 KeiraMoise hawley [facility] of 12:25:00 [facility] POCT GLUCOSE (AUTOMATED) 2020-07-18 KeiraMoise hawley [facility] ersity of 12:01:00 [facility] POCT GLUCOSE (AUTOMATED) 2020-07-18 KeiraMoise hawley [facility] ersity of 12:01:00 [facility] DAY SURGERY - ADC 2020-07-18 Doctor Iker, [facility] of 05:01:00 [place] [facility] CT ABDOMEN PELVIS W CONTRAST 2020-07-08 Jaki Polanco Uni versity of 00:59:19 [facility] LIPASE 2020-07-08 Jaki Polanco [facility] of 00:23:00 [facility] MAGNESIUM 2020-07-08 Jaki Polanco [facility] of 00:23:00 [facility] TROPONIN I 2020-07-08 Jaki Polanco [facility] of 00:23:00 [facility] COMP. METABOLIC PANEL ([id number]) 2020-07-08 Jaki Polanco Un iversity of 00:23:00 [facility] CBC WITH DIFF 2020-07-08 Jaki Polanco [facility] of 00:23:00 [facility] URINALYSIS 2020-07-08 Jaki Polanco [facility] of 00:23:00 [facility] COVID-19 (ID NOW RAPID TESTING) 2020-07-08 Jaki Polanco [facility] of 00:23:00 [facility] XR CHEST 1 VW 2020-07-08 Jaki Polanco Sydnie [facility] of 00:01:58 [facility] CONSENT/REFUSAL FOR DIAGNOSIS AND 2020-07-07 Doctor Dung santiago [facility] 23:40:12 [place] [facility] [place] TIME OR (NON-REPORTABLE) 2020-07-04 Moise Gamez niversity of 13:10:00 [facility] 2020-07-04 Doctor [facility] 05:01:00 [place] [facility] ASSIGNMENT OF BENEFITS 2020-07-01 Doctor Padmasschad, Univer sity of 14:01:02 [place] [facility] FL TIME OR (NON-REPORTABLE) 2020-06-20 Moise Gamez U niversity of 14:12:00 [facility] 2020-06-20 Doctor [facility] 06:01:00 [place] [facility] ASSIGNMENT OF BENEFITS 2020-06-17 Doctor Padmasschad, Univer sity of 21:21:05 [place] [facility] CONSENT/REFUSAL FOR DIAGNOSIS AND 2020-06-15 Doctor Dung santiago [facility] 20:59:25 [place] [facility] CONSENT/REFUSAL FOR DIAGNOSIS AND 2020-06-15 Doctor Dung santiago [facility] 20:59:25 [place] [facility] ASSIGNMENT OF BENEFITS 2020-06-15 Doctor Padmassigned, Univer sity of 20:59:08 [place] [facility] ASSIGNMENT OF BENEFITS 2020-06-15 Doctor Padmasschad, Univer sity of 20:59:08 [place] [facility] CONSENT/REFUSAL FOR DIAGNOSIS AND 2020-06-15 Doctor Dung santiago [facility] 20:58:52 [place] [facility] CONSENT/REFUSAL FOR DIAGNOSIS AND 2020-06-15 Doctor Dung santiago [facility] 20:58:52 [place] [facility] ASSIGNMENT OF BENEFITS 2020-06-15 Doctor Padmassigned, Univer sity of 20:58:37 [place] [facility] ASSIGNMENT OF BENEFITS 2020-06-15 Doctor Unassigned, Univer sity of 20:58:37 [place] [facility] NOTICE OF PRIVACY PRACTICES 2020-06-15 Doctor Unassigned, U niversity of 20:58:21 [place] [facility] NOTICE OF PRIVACY PRACTICES 2020-06-15 Doctor Unassigned, U niversity of 20:58:21 [place] [facility] CONSENT/REFUSAL FOR DIAGNOSIS AND 2020-06-15 Doctor Dung santiago, [facility] 20:58:08 [place] [facility] CONSENT/REFUSAL FOR DIAGNOSIS AND 2020-06-15 Doctor Dung santiago, [facility] 20:58:08 [place] [facility] ASSIGNMENT OF BENEFITS 2020-06-15 Doctor Unassigned, Univer sity of 20:57:50 [place] [facility] ASSIGNMENT OF BENEFITS 2020-06-15 Doctor Unassigned, Univer sity of 20:57:50 [place] [facility] DSU PRE-OP 2020-06-15 Doctor Un[facility]io[facility] 06:01:00 [place] [facility] DSU PRE-OP 2020-06-15 Doctor [facility] 06:01:00 [place] [facility] HEPATIC FUNCTION PANEL ([id number]) 2020-05-06 [facility] of (ALB,T.PRO,BILI 22:56:00 [facility],BU/BC,ALT,AST,ALK PHOS) [place] BASIC METABOLIC PANEL (NA, K, CL, 2020-05-06 [facility] [place] [id number], GLUCOSE, BUN, CREATININE, CA) 22:56:00 [facility] XR CHEST 1 VW 2020-05-06 [facility] 21:44:02 [facility] LIPASE 2020-05-06 [facility] 21:40:00 [facility] TROPONIN I 2020-05-06 [facility] 21:40:00 [facility] CBC WITH DIFF 2020-05-06 [facility] 21:40:00 [facility] URINALYSIS 2020-05-06 [facility] 21:32:00 [facility] COVID-19 (ID NOW RAPID TESTING) 2020-05-06 [facility] 21:32:00 [facility] NOTICE OF PRIVACY PRACTICES 2020-05-06 Doctor Unassigned, U niversity of 21:14:50 [place] [facility] CONSENT/REFUSAL FOR DIAGNOSIS AND 2020-05-06 [facility] 21:14:25 [place] [facility] CT ABDOMEN PELVIS W CONTRAST 2020-03-26 Gabriele Grayson Un iversity of 06:12:05 [facility] URINALYSIS 2020-03-26 [facility] of 05:02:00 [facility] LIPASE 2020-03-26 [facility] of 03:38:00 [facility] COMP. METABOLIC PANEL ([id number]) 2020-03-26 Gabriele Grayson U niversity of 03:38:00 [facility] CBC WITH DIFF 2020-03-26 [facility] of 03:38:00 [facility] COVID-19 (ID NOW RAPID TESTING) 2020-03-26 [facility] of 03:38:00 [facility] CONSENT/REFUSAL FOR DIAGNOSIS AND 2020-03-26 [facility] 02:58:31 [place] [facility] REFERRAL- REQUEST/RESPONSE 2020-03-18 Doctor Unassigned, Un iversity of 06:01:00 [place] [facility] MR BRAIN WO CONTRAST 2020-02-08 Monet Dominguez [facility] y of 13:47:00 [facility] BASIC METABOLIC PANEL (NA, K, CL, 2020-02-07 [facility] of CO2, GLUCOSE, BUN, CREATININE, CA) 08:51:00 [facility] CBC WITH DIFF 2020-02-07 [facility] of 08:51:00 [facility] COMP. METABOLIC PANEL ([id number]) 2020-02-05 Rigoberto Menendez Un iversity of 09:37:00 [facility] CBC WITH DIFF 2020-02-05 Rigoberto Menendez [facility] of 09:37:00 [facility] MR CERVICAL SPINE WO CONTRAST 2020-02-05 Jesusita Aguillon Un iversity of 00:24:54 [facility] MAGNESIUM 2020-02-04 Rigoberto Menendez [facility] of 10:01:00 [facility] COMP. METABOLIC PANEL ([id number]) 2020-02-04 Rigoberto Menendez Un iversity of 10:01:00 [facility] CBC WITH DIFF 2020-02-04 Jesusita Aguillon [facility] of 10:01:00 [facility] N-TERMINAL PRO-BNP 2020-02-04 Rigoberto Menendez [facility] of 10:01:00 [facility] BLOOD CULTURE SCREEN 2020-02-03 Juan Luis, [facility] 22:19:00 [facility] RENAL ARTERY DUPLEX BY VASCULAR 2020-02-03 [facility] LAB 17:42:39 [facility] AMMONIA, PLASMA 2020-02-03 [facility] of 17:06:00 [facility] SMOOTH MUSCLE AB,IGG W/REFLEX 2020-02-03 Ross, Un iversity of 16:43:00 Arik Rosales [facility] OCCULT (GUAIAC) BLOOD 2020-02-03 [facility] 16:42:00 [facility] PHOSPHORUS 2020-02-03 [facility] 08:45:00 [facility] CREATINE KINASE 2020-02-03 Juan Luis, [facility] of 08:45:00 [facility] URIC ACID 2020-02-03 [facility]00 [facility] MAGNESIUM 2020-02-03 [facility] 08:45[facility]00 [facility] COMP. METABOLIC PANEL ([id number]) 2020-02-03 Rigoberto Menendez Un iversity of 08:45:00 [facility] CBC WITH DIFF 2020-02-03 [facility] 08:45[facility]00 [facility] N-TERMINAL PRO-BNP 2020-02-03 [facility] 08:45:00 [facility] BLOOD CULTURE SCREEN 2020-02-02 [facility] 20:19:00 [facility] BLOOD CULTURE SCREEN 2020-02-02 [facility] 19:58:00 [facility] CERULOPLASMIN 2020-02-02 Ross Weems of 19:58:00 Niranjithr Connie [facility] VALPROIC ACID, FREE 2020-02-02 [facility] f 19:58:00 [facility] PROTHROMBIN TIME / INR 2020-02-02 Rigoberto Menendez [facility] of 19:58:00 [facility] ANTI-NUCLEAR ANTIBODY SCREEN 2020-02-02 Elizabethosvaldocatarina, Uni versity of 19:58:00 Arik Connie [facility] HEPATITIS B SURFACE ANTIBODY 2020-02-02 Juan Luis, [facility] Uni versity of 19:58:00 [facility] HEPATITIS B SURFACE ANTIGEN 2020-02-02 Juan Luis, [facility] Univ ersity of 19:58:00 [facility] HCV ANTIBODY 2020-02-02 [facility] University of 19:58:00 [facility] HAV ANTIBODY (IGG AND IGM) 2020-02-02 [facility] Unive rsity of 19:58:00 [facility] PROCALCITONIN 2020-02-02 [facility] 19:58:00 [facility] BLOOD CULTURE WORKUP 2020-02-02 [facility] 19:58:00 [facility] CREATINE KINASE 2020-02-02 [facility] 11:31:00 [facility] LIPASE 2020-02-02 [facility] of 11:31:00 [facility] COMP. METABOLIC PANEL ([id number]) 2020-02-02 [facility] iversity of 11:31:00 [facility] LIPID PANEL ([id number])(TOTAL 2020-02-02 Juan LuisRigoberto Univer sity of CHOLESTEROL, TRIGLYCERIDES, HDL) 11:31:00 [facility] LITHIUM 2020-02-02 [facility] of 11:31:00 [facility] POCT GLUCOSE (AUTOMATED) 2020-02-02 Pahsa Hinojosa [facility] ity of 11:24:00 [facility] LIPASE 2020-02-02 Micaela [facility] of 08:21:00 [facility] COMP. METABOLIC PANEL ([id number]) 2020-02-02 [facility] iversity of 08:21:00 [facility] LITHIUM 2020-02-02 Pasha Hinojosa [facility] of 08:21:00 [facility] CBC WITH DIFF 2020-02-02 Pasha Hinojosa [facility] of 08:21:00 [facility] GLYCOSYLATED HEMOGLOBIN (A1C) 2020-02-02 Juan LuisRigoberto Un iversity of 08:21:00 [facility] ACUTE CARE VENOUS BLOOD GAS 2020-02-01 [facility] 19:23:00 [facility] US ABDOMEN COMPLETE 2020-02-01 [facility] o f 16:39:39 [facility] POCT GLUCOSE (AUTOMATED) 2020-02-01 [facility] 12:46:00 [facility] LIPASE 2020-02-01 [facility] of 10:09:00 [facility] COMP. METABOLIC PANEL ([id number]) 2020-02-01 [facility] iversity of 10:09:00 [facility] LITHIUM 2020-02-01 [facility] of 10:09:00 [facility] CBC WITH DIFF 2020-02-01 [facility] 10:09:00 [facility] OSMOLALITY SERUM 2020-02-01 [facility] 00:10:00 [facility] VITAMIN B12, LEVEL 2020-02-01 [facility] of 00:10:00 [facility] FOLATE 2020-02-01 [facility] of 00:10:00 [facility] ABG+COOX+NA+K+GLU+CA2+ 2020-01-31 Kirstin Ron [facility] ty of 20:39:00 [facility] BLOOD CULTURE SCREEN 2020-01-31 [facility] of 18:21:00 [facility] IRON PANEL 2020-01-31 [facility] 18:21:00 [facility] SALICYLATE 2020-01-31 [facility] 18:21:00 [facility] LITHIUM 2020-01-31 [facility] of 18:21:00 [facility] VALPROIC ACID, TOTAL 2020-01-31 [facility] of 18:21:00 [facility] BLOOD CULTURE WORKUP 2020-01-31 [facility] of 18:21:00 [facility] ADC OR PERICO ONLY - RPR 2020-01-31 Micaela [facility] sity of 18:21:00 [facility] GRAM POSITIVE BLOOD PATHOGENS DNA 2020-01-31 May Ron [facility] of PROBE-AEROBIC 18:21:00 [facility] XR ABDOMEN 1 VW 2020-01-31 [facility] of 17:09:26 [facility] XR CHEST 1 VW 2020-01-31 [facility] of 17:09:[address] [facility] [address] HEAD WO CONTRAST 2020-01-31 [facility] of 16:58:10 [facility] URINALYSIS 2020-01-31 [facility] of 16:13:00 [facility] URINE CULTURE 2020-01-31 [facility] of 16:13:00 [facility] ADC / LCC - DRUG SCREEN TRIAGE 2020-01-31 [facility] of 16:13:00 [facility] COVID-19 (ID NOW RAPID TESTING) 2020-01-31 [facility] of 16:00:00 [facility] LAB ONLY COVID INTERPRETATION 2020-01-31 [facility] Kirstin U niversity of 16:00:00 [facility] BLOOD CULTURE SCREEN 2020-01-31 [facility] of 15:58:00 [facility] CREATINE KINASE 2020-01-31 [facility] of 15:58:00 [facility] LIPASE 2020-01-31 [facility] 15:58:00 [facility] FERRITIN SERUM 2020-01-31 [facility] of 15:58:00 [facility] AMMONIA, PLASMA 2020-01-31 [facility] of 15:58:00 [facility] TROPONIN I 2020-01-31 [facility] of 15:58:00 [facility] THYROID STIMULATING HORMONE 2020-01-31 [facility] ersity of 15:58:00 [facility] HEPATIC FUNCTION PANEL ([id number]) 2020-01-31 [facility] of (ALB,T.PRO,BILI 15:58:00 [facility],BU/BC,ALT,AST,ALK PHOS) Branch BASIC METABOLIC PANEL (NA, K, CL, 2020-01-31 [facility] of CO2, GLUCOSE, BUN, CREATININE, CA) 15:58:00 [facility] ETHANOL 2020-01-31 [facility] of 15:58:00 [facility] DIFF CONSULT INTERPRETATION 2020-01-31 [facility] of 15:58:00 [facility] CBC WITH DIFF 2020-01-31 [facility] of 15:58:00 [facility] RETICULOCYTES AUTOMATED 2020-01-31 [facility] of 15:58:00 [facility] N-TERMINAL PRO-BNP 2020-01-31 [facility] o f 15:58:00 [facility] LACTIC ACID WHOLE BLOOD 2020-01-31 [facility] ity of 15:57:00 [facility] EKG-12 LEAD 2020-01-31 Mariana Ramirez [facility] of 15:48:34 [facility] EKG-12 LEAD 2020-01-31 [facility] of 15:40:40 [facility] NOTICE OF PRIVACY PRACTICES 2020-01-31 Doctor Unassigned, U niversity of 15:38:09 [place] [facility] CONSENT/REFUSAL FOR DIAGNOSIS AND 2020-01-31 [facility] 15:37:54 [place] [facility] EXTERNAL PROVIDER RECORDS 2020-01-31 Doctor Unassigned, Uni versity of 05:01:00 [place] [facility] EMERGENCY DEPARTMENT DOCUMENTS 2020-01-31 Doctor Unasschad , Weems of 05:01:00 [place] [facility] HOSPITAL ADM - MISC 2020-01-31 Doctor Unassigned, Universit y of 05:01:00 [place] [facility] HOSPITAL ADMISSION 2020-01-31 Doctor Unassigned, We[facility] of 05:01:00 [place] [facility] CT ABDOMEN PELVIS W CONTRAST 2019-12-18 Meka Hammonds Un iversity of 22:11:19 [facility] URINALYSIS 2019-12-18 [facility] 21:07:00 [facility] LIPASE 2019-12-18 [facility] 20:39:00 [facility] TROPONIN I 2019-12-18 [facility] 20:39:00 [facility] HEPATIC FUNCTION PANEL ([id number]) 2019-12-18 [facility] (ALB,T.PRO,BILI 20:39:00 [facility] T,BU/BC,ALT,AST,ALK PHOS) Branch BASIC METABOLIC PANEL (NA, K, CL, 2019-12-[address] [facility] [place] [place] CO2, GLUCOSE, BUN, CREATININE, CA) 20:39:00 [facility] CBC WITH DIFF 2019-12-18 Sonya [facility] 20:39:00 [facility] CONSENT/REFUSAL FOR DIAGNOSIS AND 2019-12-18 [facility] 20:15:38 [place] [facility] XR CHEST 1 VW COVID 2019-08-22 [facility] 01:15:45 [facility] LIPASE 2019-08-22 [facility] 01:00:00 [facility] TROPONIN I 2019-08-22 [facility] 01:00:00 [facility] COMP. METABOLIC PANEL ([id number]) 2019-08-22 Gabriele Grayson [facility] niversity of 01:00:00 [facility] CBC WITH DIFFERENTIAL 2019-08-22 Herrick, [facility] of 01:00:00 [facility] PROTHROMBIN TIME / INR 2019-08-22 [facility] ty of 01:00:00 [facility] ACTIVATED PARTIAL THRMPLAS KIMANI 2019-08-22 [facility] 01:00:00 [facility] URINALYSIS 2019-08-22 [facility] 01:00:00 [facility] CORONAVIRUS COVID-19 TESTING 2019-08-22 [facility] iversity of 01:00:00 [facility] EKG-12 LEAD 2019-08-22 [facility] 00:52:01 [facility] CONSENT/REFUSAL FOR DIAGNOSIS AND 2019-08-22 [facility] 00:30:30 [place] [facility] LIPASE 2019-06-25 [facility] 22:49:00 [facility] TROPONIN I 2019-06-25 [facility] 22:49:00 [facility] HEPATIC FUNCTION PANEL ([id number]) 2019-06-25 [facility] (ALB,T.PRO,BILI 22:49:00 [facility],BU/BC,ALT,AST,ALK PHOS) Branch BASIC METABOLIC PANEL (NA, K, CL, 2019-06-25 RonMay [facility] of CO2, GLUCOSE, BUN, CREATININE, CA) 22:49:00 [facility] CBC WITH DIFFERENTIAL 2019-06-25 [facility] y of 22:49:00 [facility] EKG-12 LEAD 2019-06-25 [facility] of 22:33:31 [facility] URINALYSIS 2019-06-25 [place], [facility] of 22:13:00 [facility] LIPASE 2019-06-19 [facility] of 20:30:00 [facility] TEST, SERUM 2019-06-19 [facility] ty of 20:30:00 [facility] HEPATIC FUNCTION PANEL ([id number]) 2019-06-19 [facility] of (ALB,T.PRO,BILI 20:30:00 [facility],BU/BC,ALT,AST,ALK PHOS) [place] BASIC METABOLIC PANEL (NA, K, CL, 2019-06-19 [facility] of CO2, GLUCOSE, BUN, CREATININE, CA) 20:30:00 [facility] CBC WITH DIFFERENTIAL 2019-06-19 [facility] ty of 20:30:00 [facility] URINALYSIS 2019-06-19 [facility] of 20:30:00 [facility] CONSENT/REFUSAL FOR DIAGNOSIS AND 2019-06-19 [facility] 19:35:06 [place] [facility] CT ABDOMEN PELVIS W CONTRAST 2019-05-20 Jadyn Skaggs Uni versity of 02:03:54 [facility] LIPASE 2019-05-20 Singer [facility] of 01:07:00 [facility] COMP. METABOLIC PANEL ([id number]) 2019-05-20 Jadyn Skaggs iversity of 01:07:00 [facility] CBC WITH DIFFERENTIAL 2019-05-20 Singer [facility] of 01:07:00 [facility] URINALYSIS 2019-05-20 Singer [facility] of 01:07:00 [facility] NOTICE OF PRIVACY PRACTICES 2019-05-20 Doctor Unassigned, U niversity of 00:08:29 [place] [facility] CONSENT/REFUSAL FOR DIAGNOSIS AND 2019-05-20 [facility] 00:08:14 [place] [facility] CT ANKLE RIGHT WO CONTRAST 2018-12-05 Ector Franke rsity of 16:22:01 [facility] XR FOOT 3+ VW RIGHT 2018-12-01 [facility] o f 19:59:31 [facility] XR TIBIA FIBULA 2 VW RIGHT 2018-12-01 Jaki Polanco [facility] rsity of 19:59:07 [facility] BASIC METABOLIC PANEL (NA, K, CL, 2018-11-16 [facility] of CO2, GLUCOSE, BUN, CREATININE, CA) 09:31:00 [facility] CBC WITH DIFFERENTIAL 2018-11-16 [facility] of 09:31:00 [facility] ABORH CONFIRMATION 2018-11-16 [facility] of 00:34:00 [facility] URINE CULTURE 2018-11-16 [facility] of 00:00:00 [facility] URINALYSIS 2018-11-15 [facility] of 23:58:00 [facility] TYPE AND SCREEN 2018-11-15 [facility] of 23:00:00 [facility] TROPONIN I 2018-11-15 [facility] of 21:08:00 [facility] LIPID PANEL ([id number])(TOTAL 2018-11-15 [facility] sity of CHOLESTEROL, TRIGLYCERIDES, HDL) 21:08:[address] [facility] CT ABDOMEN PELVIS W CONTRAST 2018-11-15 Mariana Ramirez versity of 16:32:45 [facility] HELICOBACTER PYLORI AB, IGG 2018-11-15 [facility] ersity of 15:51:00 [facility] HEPATITIS B SURFACE ANTIBODY 2018-11-15 Mariana Ramirez versity of 15:51:00 [facility] HCV ANTIBODY 2018-11-15 Mariana Ramirez University of 15:51:00 [facility] HEPATITIS A VIRUS ANTIBODY IGM 2018-11-15 Mariana Ramirez U niversity of 15:51:00 [facility] HEPATITIS B CORE ANTIBODY IGM 2018-11-15 Mariana Ramirez Un iversity of 15:51:00 [facility] ACETAMINOPHEN 2018-11-15 Mariana Ramirez of 15:50:00 [facility] XR CHEST 1 VW 2018-11-15 Mariana Ramirez of 15:08:18 [facility] LIPASE 2018-11-15 Mariana Ramirez of 14:40:00 [facility] TROPONIN I 2018-11-15 Mariana Ramirez [facility] of 14:40:00 [facility] HEPATIC FUNCTION PANEL ([id number]) 2018-11-15 Mariana Ramirez niversity of (ALB,T.PRO,BILI 14:40:00 [facility],BU/BC,ALT,AST,ALK PHOS) [place] BASIC METABOLIC PANEL (NA, K, CL, 2018-11-15 Florina Ramirez [facility] of CO2, GLUCOSE, BUN, CREATININE, CA) 14:40:00 [facility] CBC WITH DIFFERENTIAL 2018-11-15 Mariana Ramirez of 14:40:00 [facility] GLYCOSYLATED HEMOGLOBIN (A1C) 2018-11-15 Maryellen Cummings Un iversity of 14:40:00 Mal [facility] PROTHROMBIN TIME / INR 2018-11-15 Mariana Ramirezit y of 14:40:00 [facility] ACTIVATED PARTIAL THRMPLAS KIMANI 2018-11-15 Mariana Ramirez niversity of 14:40:00 [facility] N-TERMINAL PRO-BNP 2018-11-15 Mariana Ramirez of 14:40:00 [facility] EKG-12 LEAD 2018-11-15 Mariana Ramirez of 14:26:03 [facility] CONSENT/REFUSAL FOR DIAGNOSIS AND 2018-11-15 [facility] 14:13:05 [place] [facility] Plan of Care Planned Activity Planned Date Details Comments Source Future Scheduled 2023-09-01 Screening for malignant [facility] 00:00:00 neoplasm of colon [facility] (procedure) [code = 004009727] Future Scheduled 2023-09-01 Screening for malignant [facility] 00:00:00 neoplasm of colon [facility] (procedure) [code = 219059871] Future Scheduled 2023-09-01 Screening for malignant [facility] 00:00:00 neoplasm of colon [facility] (procedure) [code = 325771871] Future Scheduled 2023-09-01 Screening for malignant [facility] 00:00:00 neoplasm of colon [facility] Ce [facility] (procedure) [code = 791090671] Future Scheduled 2023-09-01 Screening for malignant [facility] 00:00:00 neoplasm of colon [facility] (procedure) [code = 606956807] Future Scheduled 2023-09-01 Screening for malignant [facility] 00:00:00 neoplasm of colon [facility] (procedure) [code = 453995048] Future Scheduled 2023-09-01 Screening for malignant [facility] 00:00:00 neoplasm of colon Medical Ce [facility] (procedure) [code = 875783018] Future Scheduled 2023-09-01 Screening for malignant [facility] 00:00:00 neoplasm of colon Medical Ce [facility] (procedure) [code = 507042300] Future Scheduled 2023-09-01 Screening for malignant [facility] 00:00:00 neoplasm of colon [facility] (procedure) [code = 721268544] Future Scheduled 2023-09-01 Screening for malignant [facility] 00:00:00 neoplasm of colon Medical Ce [facility] (procedure) [code = 617103819] Future Scheduled 2023-09-01 Screening for malignant [facility] 00:00:00 neoplasm of colon Medical Ce [facility]ter (procedure) [code = 411542573] Future Scheduled 2023-09-01 Screening for malignant [facility] 00:00:00 neoplasm of colon Medical Ce [facility] (procedure) [code = 013155292] Future Scheduled 2023-09-01 Screening for malignant [facility] 00:00:00 neoplasm of colon Medical Ce [facility] (procedure) [code = 501061610] Future Scheduled 2023-09-01 Screening for malignant [facility] 00:00:00 neoplasm of colon Medical Ce [facility] (procedure) [code = 886235354] Future Scheduled 2023-09-01 Screening for malignant [facility] 00:00:00 neoplasm of colon Medical Ce [facility] (procedure) [code = 551584084] Future Scheduled 2023-09-01 Screening for malignant [facility] 00:00:00 neoplasm of colon Medical Ce [facility]ter (procedure) [code = 485230266] Future Scheduled 2023-02-01 Lipid panel (procedure) [facility] 00:00:00 [code = 89547948] Medical Ce nter Future Scheduled 2023-02-01 Lipid panel (procedure) [facility] 00:00:00 [code = 40918663] Medical Ce nter Future Scheduled 2023-02-01 Lipid panel (procedure) [facility] 00:00:00 [code = 34845785] Medical Ce nter Future Scheduled 2023-02-01 Lipid panel (procedure) [facility] 00:00:00 [code = 44797350] Medical Ce nter Future Scheduled 2023-02-01 Lipid panel (procedure) [facility] 00:00:00 [code = 28903428] Medical Ce nter Future Scheduled 2023-02-01 Lipid panel (procedure) [facility] 00:00:00 [code = 28129909] Medical Ce nter Future Scheduled 2023-02-01 Lipid panel (procedure) [facility] 00:00:00 [code = 19048837] Medical Ce nter Future Scheduled 2023-02-01 Lipid panel (procedure) [facility] 00:00:00 [code = 54588654] Medical Ce nter Future Scheduled 2022-12-14 INFLUENZA [...] INFLUENZA VACCINE (Season Ended)] Future Scheduled 2022-12-[address] [facility] 00:00:00 (Season Ended) [code = [facility] Influenza Vaccine (Season Ended)] Future Scheduled 2022-12-[address] [facility] 00:00:00 (Season Ended) [code = [facility] Influenza Vaccine (Season Ended)] Future Scheduled 2022-04-15 DEPRESSION SCREENING [facility] Future Scheduled 2012 SHINGLES VACCINES ([address] [facility] 00:00:00 2) [code = [facility]INGLES [facility] Center VACCINES (1 of 2)] Future Scheduled 2012 SHINGLES VACCINES ([address] [facility] 00:00:00 2[facility] Future Scheduled 2012 SHINGLES VACCINES ([address] [facility] 00:00:00 2[facility])] Future Scheduled 2012 SHINGLES VACCINES ([address] [facility] 00:00:00 2[facility])] Future Scheduled 1983-11-02 Screening for malignant [facility] 00:00:00 neoplasm of cervix Medical C enter (procedure) [code = 727648772] Future Scheduled 1983-11-02 Screening for malignant [facility] 00:00:00 neoplasm of cervix Medical C enter (procedure) [code = 457925693] Future Scheduled 1983-11-02 Screening for malignant [facility] 00:00:00 neoplasm of cervix Medical C enter (procedure) [code = 877570388] Future Scheduled 1983-11-02 Screening for malignant [facility] 00:00:00 neoplasm of cervix Medical C enter (procedure) [code = 308609662] Future Scheduled 1983-11-02 Screening for malignant [facility] 00:00:00 neoplasm of cervix Medical C enter (procedure) [code = 721961018] Future Scheduled 1983-11-02 Screening for malignant [facility] 00:00:00 neoplasm of cervix Medical C enter (procedure) [code = 593569125] Future Scheduled 1983-11-02 Screening for malignant [facility] 00:00:00 neoplasm of cervix Medical C enter (procedure) [code = 328678975] Future Scheduled 1983-11-02 Screening for malignant [facility] 00:00:00 neoplasm of cervix Medical C enter (procedure) [code = 311717637] Future Scheduled 1981 DTAP/TDAP/TD VACCINES CH I [...] breast Medical C enter (procedure) [code = 911409105] Future Scheduled 1962 CT Colonography (combo) [facility] 00:00:00 [code = CT Colon[facility] ([facility] Future Scheduled 1962 Screening for malignant [facility] 00:00:00 neoplasm of colon Medical Ce [facility]ter (procedure) [code = 876755558] Future Scheduled 1962 Screening for malignant [facility] 00:00:00 neoplasm of colon Medical Ce [facility]ter (procedure) [code = 295808757] Future Scheduled 1962 Sigmoidoscopy [facility]code [facility] Cent[facility] r Future Scheduled 1962 Screening for malignant [facility] 00:00:00 neoplasm of breast Medical C enter (procedure) [code = 445814544] Future Scheduled 1962 CT Colonography (combo) [facility] 00:00:00 [code = CT Colonography [facility] (combo)] Future Scheduled 1962 Screening for malignant [facility] 00:00:00 neoplasm of colon Medical Ce [facility]ter (procedure) [code = 783869805] Future Scheduled 1962 Screening for malignant [facility] 00:00:00 neoplasm of colon Medical Ce [facility]ter (procedure) [code = 636109380] Future Scheduled 1962 Sigmoidoscopy [facility]code [facility]] Medical Cent[facility] r Future Scheduled 1962 Screening for malignant [facility] 00:00:00 neoplasm of breast Medical C enter (procedure) [code = 279041048] Future Scheduled 1962 CT Colonography (combo) [facility] 00:00:00 [code = CT Colonography [facility] ([facility]bo)] Future Scheduled 1962 Screening for malignant [facility] 00:00:00 neoplasm of colon Medical Ce nter (procedure) [code = 507452316] Future Scheduled 1962 Screening for malignant [facility] 00:00:00 neoplasm of colon Medical Ce nter (procedure) [code = 545095906] Future Scheduled 1962 Sigmoidoscopy [facility]code [facility]] Medical Matthew r Future Scheduled 1962 Screening for malignant [facility] 00:00:00 neoplasm of breast Medical C enter (procedure) [code = 885901464] Future Scheduled 1962 CT Colonography (combo) [facility] 00:00:00 [code = CT [facility] ([facility] Future Scheduled 1962 Screening for malignant [facility] 00:00:00 neoplasm of colon Medical Ce nter (procedure) [code = 538498960] Future Scheduled 1962 Screening for malignant [facility] 00:00:00 neoplasm of colon Medical Ce nter (procedure) [code = 068631781] Future Scheduled 1962 Sigmoidoscopy [facility]code = [facility]oscopy] Medical Matthew r Future Scheduled 1962 Screening for malignant [facility] 00:00:00 neoplasm of breast Medical C enter (procedure) [code = 641361590] Future Scheduled 1962 CT Colonography (combo) [facility] 00:00:00 [code = CT [facility] ([facility])] Future Scheduled 1962 Screening for malignant [facility] 00:00:00 neoplasm of colon Medical Ce nter (procedure) [code = 924900951] Future Scheduled 1962 Screening for malignant [facility] 00:00:00 neoplasm of colon Medical Ce nter (procedure) [code = 959888488] Future Scheduled 1962 Sigmoidoscopy [facility]code = [facility]oscopy] Medical Matthew maher Future Scheduled 1962 Screening for malignant [facility] 00:00:00 neoplasm of breast Medical C enter (procedure) [code = 956476842] Future Scheduled 1962 CT Colonography (combo) [facility] 00:00:00 [code = CT [facility] ([facility])] Future Scheduled 1962 Screening for malignant [facility] 00:00:00 neoplasm of colon Medical Ce nter (procedure) [code = 369985518] Future Scheduled 1962 Screening for malignant [facility] 00:00:00 neoplasm of colon Medical Ce nter (procedure) [code = 324542128] Future Scheduled 1962 Sigmoidoscopy [facility]code = [facility] S[facility]oidoscopy] Medical Elizabethe r Future Scheduled 1962 Screening for malignant [facility] 00:00:00 neoplasm of breast Medical C enter (procedure) [code = 122788695] Future Scheduled 1962 CT Colonography (combo) [facility] 00:00:00 [code = CT [facility] ([facility])] Future Scheduled 1962 Screening for malignant [facility] 00:00:00 neoplasm of colon Medical Ce nter (procedure) [code = 010145719] Future Scheduled 1962 Screening for malignant [facility] 00:00:00 neoplasm of colon Medical Ce nter (procedure) [code = 124193828] Future Scheduled 1962 Sigmoidoscopy [facility]code [facility] S[facility]oscopy] Medical Elizabethe r Future Scheduled 1962 Screening for malignant [facility] 00:00:00 neoplasm of breast Medical C enter (procedure) [code = 232054572] Future Scheduled 1962 CT Colonography (combo) [facility] 00:00:00 [code = CT [facility] ([facility])] Future Scheduled 1962 Screening for malignant [facility] 00:00:00 neoplasm of colon Medical Ce nter (procedure) [code = 895401331] Future Scheduled 1962 Screening for malignant [facility] 00:00:00 neoplasm of colon Medical Ce nter (procedure) [code = 779874831] Future Scheduled 1962 Sigmoidoscopy [facility]code [facility] Sigmoidoscopy] Medical Elizabethe r Encounters Start End Encounter Admission Attending Care Care Encounter Source Date/Time Date/Time Type Type Clinicians Facility Department ID 2022-07-26 Outpatient RUIZ Osman [facility] [id number] Common 10:48:01 Belinda [id number] [facility] 2022-05-[address] [facility] [id number] Common 14:15:01 Belinda [id number] [facility] 2022-02-26 Outpatient Slade, Na STLMLC STLMLC [id number] 2 Common 11:44:00 [facility] 2022-02-22 Outpatient Slade, Na STLMLC STLMLC [id number] 2 Common 15:04:00 [facility] 2022-01-10 Outpatient Slade, Na STLMLC STLMLC [id number] 2 Common 11:30:01 [facility] 2021-12-29 Outpatient Slade, Na STLMLC STLMLC [id number] 2 Common 09:54:01 [facility] 2021-12-26 Outpatient Lsade, Na STLMLC STLMLC [id number] 2 Common 08:22:00 [facility] 2021-12-22 Outpatient Slade, Na STLMLC STLMLC [id number] 2 Common 08:47:00 [facility] 2021-09-19 Outpatient Slade, Na STLMLC STLMLC [id number] 2 Common 13:44:00 [facility] 2021-08-16 Outpatient Slade, Na STLMLC STLMLC [id number] 2 Common 08:30:01 [facility] 2021-06-14 Outpatient Slade, Na STLMLC STLMLC [id number] 2 Common 10:15:02 [facility] 2021-05-25 Outpatient Colette PIPER [facility] JARROD [id number] Univers 16:04:35 [facility] 2021-05-10 Outpatient Slade, Na STLMLC STLMLC [id number] 2 Common 14:36:16 [facility] 2021-05-10 Outpatient Slade, Na STLMLC STLMLC [id number] 2 Common 14:35:31 [facility] 2021-05-10 Outpatient Slade, Na STLMLC STLMLC [id number] 2 Common 14:33:15 [facility] 2021-05-10 Outpatient Slade, Na STLMLC STLMLC [id number] 2 Common 14:26:40 [id number] [facility] 2021-05-10 Outpatient Slade, Na STLMLC STLMLC [id number] 2 Common 14:26:20 [id number] [facility] 2021-05-10 Outpatient Slade, Na STLMLC STLMLC [id number] 2 Common 13:09:45 [id number] [facility] 2021-05-10 Outpatient Slade, Na STLMLC STLMLC [id number] 2 Common 12:53:19 [id number] [facility] 2021-05-10 Outpatient Slade, Na STLMLC STLMLC [id number] 2 Common 12:44:09 [id number] [facility] 2021-05-10 Outpatient Slade, Na STLMLC STLMLC [id number] 2 Common 12:41:43 [id number] [facility] 2021-05-10 Outpatient Slade, Na STLMLC STLMLC [id number] 2 Common 12:14:04 [id number] [facility] 2021-05-10 Outpatient Slade, Na STLMLC STLMLC [id number] 2 Common 12:09:45 [id number] [facility] 2021-05-10 Outpatient Slade, Na STLMLC STLMLC [id number] 2 Common 12:08:20 74419 [facility] 2021-05-10 Outpatient Slade, Na STLMLC STLMLC [id number] 2 Common 11:31:43 [id number] [facility] 2021-05-10 Outpatient Slade, Na STLMLC STLMLC [id number] 2 Common 11:27:56 [id number] [facility] 2021-05-10 Outpatient Slade, Na STLMLC STLMLC [id number] 2 Common 11:27:26 [id number] [facility] 2021-05-10 Outpatient Slade, Na STLMLC STLMLC [id number] 2 Common 11:16:24 [id number] [facility] 2021-04-12 Outpatient R CHARAFEDDIN [facility] [id number] Univers 10:13:10 ARIK Stokes ity of [facility] 2021-02-12 Outpatient R KEIRA [facility] [id number] Univers 02:51:20 MOISE ity of [facility] 2021-02-11 Emergency [facility] [id number] Univers 18:57:51 ity of [facility] 2021-02-11 Emergency [facility] [id number] Univers 10:52:36 ity of [facility] 2021-02-10 Emergency [facility] [id number] Univers 23:34:27 ity of [facility] 2021-02-10 Emergency [facility] [id number] Univers 16:03:46 ity of [facility] 2021-02-09 Emergency [facility] [id number] Univers 14:07:13 ity of [facility] 2021-02-09 Emergency [facility] [id number] Univers 13:02:51 ity [facility] 2021-01-21 Outpatient HEMALATHA, SLE Surgery [id number] [facility] 22:26:45 GOTTI 2021-01-21 Inpatient ER NGUYỄN, [facility] Gastro [id number] [facility] 22:24:24 2021-01-21 Outpatient HEMALATHA, [facility] Surgery [id number] [facility] 18:10:30 GOTTI 2020-08-26 Inpatient ER NGUYỄN, [facility] Med [id number] [facility] 02:30:00 2022-08-01 2022-08-01 Transition NHAN [place] 1.2.840.114 [id number] Univers 00:00:00 00:00:00 of Care Kalpesh WILLS 350.1.13.10 ity of [place] [id number] [address] 2022-07-30 2022-07-31 Outpatient Yue MAXWELL [facility] [id number] Univers 15:34:00 16:15:00 MARIE itshey [facility] 2022-07-30 2022-07-31 Emergency Mariana Ramirez [facility] 1.2.840. 114 [id number] Univers 15:34:00 16:15:00 Marie Maxwell 350.1.13.10 ity of Madhav Nicole 4.2.7.2.686 [facility] [phone] [facility] [address] 2022-05-16 2022-05-16 (TEL) STLMLC STLMLC [id number] Co mmon 00:00:00 00:00:00 [facility] 2022-04-27 2022-04-27 Transition SHANNAN HusseinLiza 1.2.840.114 [id number] Univers 00:00:00 00:00:00 of Juan CASILLASY 350.1.13.10 it y of [place] 4.2.7.2.686 [facility] [id number] [facility] 403 [address] 2022-04-25 2022-04-26 Outpatient X MICAELA [facility] [id number] Univers 16:51:00 16:15:00 PASHA li of [facility] 2022-04-25 2022-04-26 Emergency Jadyn Skaggs [facility] 1.2.840. 114 [id number] Univers 16:51:00 16:15:00 Rigoberto Menendez 350.1.13.10 ity of [place] Hinoj[place] 4.2.7.2.686 [facility] [id number] [place] [id number] Branch 2022-04-08 2022-04-08 Emergency X AUFDERHEIDE [facility] ERT [id number] Univers 13:18:00 15:19:00 , JUDY lopezy of [facility] 2022-04-08 2022-04-08 Emergency Aufderheide [facility] 1.2.840.114 [id number] Univers 13:18:00 15:19:00 , Judy MARCUM 350.1.13.10 i ty of Ignacia [place] 4.2.7.2.686 [facility] [id number] [facility] 084 [address] 2022-03-27 2022-03-27 (TEL) STLMLC STLMLC [id number] Co mmon 00:00:00 00:00:00 Spirit [facility] 2022-03-05 2022-03-05 (TEL) STLMLC STLMLC [id number] Co mmon 00:00:00 00:00:00 [facility] 2022-02-28 2022-02-28 (TEL) STLMLC STLMLC [id number] Co mmon 00:00:00 00:00:00 [facility] 2022-02-22 2022-02-22 OFFICE STLMLC STLMLC [id number] Co mmon 00:00:00 00:00:00 VISIT NEW [facility] it PT LEVEL 4 [facility] 2022-02-21 2022-02-21 (TEL) STLMLC STLMLC [id number] Co mmon 00:00:00 00:00:00 [facility] 2022-02-08 2022-02-08 (TEL) STLMLC STLMLC [id number] Co mmon 00:00:00 00:00:00 [facility] 2022-02-07 2022-02-07 Transition HusseinNHAN 1.2.840.114 [id number] Univers 00:00:00 00:00:00 of Care Lanny CASILLASY 350.1.13.10 it y of [place] 4.2.7.2.686 [facility] [id number] [facility] 403 [address] 2022-02-03 2022-02-06 Outpatient X ALISSA [facility] [id number] Univers 10:41:00 19:47:00 ELYSSA li [facility] 2022-02-03 2022-02-06 [facility] Nguyễn Montano [facility] 1.2.840.11 [id number] Univers 10:41:00 19:47:00 Encounter Elyssa Maxwell 350.1.13.10 ity [place] 4.2.7.2.686 [facility] [id number] [facility] 081 Branch 2022-02-01 2022-02-01 (TEL) STLMLC STLMLC [id number] Co mmon 00:00:00 00:00:00 [facility] 2022-01-26 2022-01-26 Emergency X [facility] ERT [id number] Univers 15:28:00 19:45:00 MEKA li [facility] 2022-01-26 2022-01-26 Emergency [facility] [id number] [id number] Univers 15:28:00 19:45:00 Meka Richey CHAO 350.1.13.10 ity of [place] 4.2.7.2.686 [facility] [id number] [facility] 084 [address] 2022-01-10 2022-01-10 (TEL) [facility] STLC [id number] Co mmon 00:00:00 00:00:00 [facility] 2022-01-02 2022-01-02 [facility] [id number] Univers 10:00:00 10:00:00 VIRA li [facility] 2022-01-02 2022-01-02 Orders Doctor HAMMER 1.2.840.114 [id number] Univers 00:00:00 00:00:00 Only Unassigned, BIANCA 350.1.13.10 ity of [facility] 4.2.7.2.686 Archie [id number] [facility] 009 Branch 2021-12-13 2021-12-13 (TEL) [facility] STLC [id number] Co mmon 00:00:00 00:00:00 [facility] 2021-11-13 2021-11-13 (TEL) STLC STLMLC [id number] Co mmon 00:00:00 00:00:00 [facility] 2021-11-02 2021-11-02 Emergency X [facility] ERT [id number] Univers 04:35:00 08:22:00 MARIANA shey [facility] 2021-11-02 2021-11-02 [facility] 1.2.225.541 [id number] Univers 04:35:00 08:22:00 Mariana MARCUM 350.1.13.10 i ty of [place] 4.2.7.2.686 [facility] [id number] [facility] [address] 2021-10-25 2021-10-25 Orders Doctor JAQUELIN 1.2.840.114 [id number] Univers 00:00:00 00:00:00 Only Unassigned, BIANCA 350.1.13.10 ity of [place] [facility] 4.2.7.2.686 Archie as [phone] [place] [address] Branch 2021-10-19 2021-10-19 (TEL) STLMLC STLMLC [id number] Co mmon 00:00:00 00:00:00 [facility] 2021-10-18 2021-10-18 (TEL) STLMLC STLMLC [id number] Co mmon 00:00:00 00:00:00 [facility] 2021-10-06 2021-10-06 (TEL) STLMLC STLMLC [id number] Co mmon 00:00:00 00:00:00 [facility] 2021-09-29 2021-09-29 Outpatient R JENNIFER DENNY, [facility] SOR [id number] Univers 06:25:00 10:55:00 ZULEMA li of [facility] 2021-09-29 2021-09-29 [facility] 1.2.840.114 [id number] Univers 06:25:00 10:55:00 Encounter Zulema MARCUM 350.1.13.10 it[place] of [place] [id number] [facility] 071 Branch 2021-09-29 2021-09-29 Surgery [facility] 1.2.840.114 [id number] Univers 07:45:00 10:15:00 Zulema MARCUM 350.1.13.10 it[place] of [place] [id number] [facility] 020 Branch 2021-09-29 2021-09-29 Anesthesia Abe Arana [facility] 1.2.840.11 [id number] Univers 07:57:00 09:44:00 Event Elyssa Jerome 350.1.13.10 it[place] of [place] [id number] [facility] 0[address] 2021-09-29 2021-09-29 Orders Doctor JAQUELIN 1.2.840.114 [id number] Univers 00:00:00 00:00:00 Only Unassigned, BIANCA 350.1.13.10 ity of [place] [facility] 4.2.7.2.686 Archie as [phone] [facility] [address] [place] 2021-09-27 2021-09-27 Laboratory Only, Adc Test [facility] 1.2.840. 114 [id number] Univers 08:30:00 08:45:00 Only Zulema Rodriguez 350.1.13.10 [place] of [place].2.[place] [id number] [address] 2021-09-27 2021-09-27 Outpatient R JENNIFER DENNY, [facility] [id number] Univers 08:30:00 08:30:00 ZULEMA li [facility] 2021-09-27 2021-09-27 Material Mover Elizabeth, Adc Lab Main [facility] 1.2.8 40.114 [id number] Univers 08:15:00 08:30:00 Visit Zulema Rodriguez 350.1.13.10 ity of [place].2.686 [place] [facility] [id number] [address] 2021-09-27 2021-09-27 Orders Doctor JAQUELIN 1.2.840.114 [id number] Univers 00:00:00 00:00:00 Only Unassigned, BIANCA 350.1.13.10 ity of [place] [facility] 4.2.7.2.686 Archie as [phone] [facility] [address] [place] 2021-09-21 2021-09-21 [facility] [id number] Co mmon 00:00:00 00:00:00 VISIT Spirit ESTAB PT - CHI LEVEL 4 [facility] 2021-09-12 2021-09-12 Transition NHAN Abdi 1.2.840.114 [id number] Univers 00:00:00 00:00:00 of Care Cyn Steiner WILLS 350.1.13.10 i ty of [place] 4.2.7.2.686 [facility] [id number] [facility] 403 [address] 2021-09-01 2021-09-08 Inpatient X ALISHA [facility] [id number] Univers 13:22:00 17:57:00 RAF li [facility] 2021-09-01 2021-09-08 [facility] Jaki Polanco 1.2.840.1 14 [id number] Univers 13:22:00 17:57:00 Encounter Raf Greene 350.1.1 3.10 ity of [facility] 4.2.7.2.686 [place] [id number] [facility] 0[address] 2021-09-08 2021-09-08 (TEL) STLMLC STLMLC [id number] Co mmon 00:00:00 00:00:00 [facility] 2021-08-27 2021-08-27 Emergency [facility] [id number] Univers 10:45:00 15:33:00 MARU li [facility] 2021-08-27 2021-08-27 [facility] 1.2.840.114 [id number] Univers 10:45:00 15:33:00 Maru MARCUM 350.1.13.10 ity [facility] 4.2.7.2.686 [facility] [id number] [facility] 084 [address] 2021-08-25 2021-08-25 (TEL) STLMLC STLMLC [id number] Co mmon 00:00:00 00:00:00 [facility] 2021-08-22 2021-08-22 (TEL) STLMLC STLMLC [id number] Co mmon 00:00:00 00:00:00 [facility] 2021-08-07 2021-08-07 OFFICE STLMLC STLMLC [id number] Co mmon 00:00:00 00:00:00 VISIT EST Spir it PT LEVEL 3 - [facility] 2021-08-01 2021-08-01 Transition NHAN Hussein 1.2.840.114 [id number] Univers 00:00:00 00:00:00 of Care Lanny WILLS 350.1.13.10 [place] y [place] [id number] [facility] 403 [address] 2021-08-01 2021-08-01 (TEL) STLC STLC [id number] Co mmon 00:00:00 00:00:00 [facility] - [facility] 2021-07-23 2021-07-29 Inpatient X YSABEL [facility] [id number] Univers 15:34:00 13:50:00 DANIEL ity of [facility] 2021-07-23 2021-07-29 [facility] Sonya Meka G [facility] 1.2.840. 114 [id number] Univers 15:34:00 13:50:00 Encounter Pasha Hinojosa 350.1.13.10 ity of [place] 4.2.7.2.686 [facility] [id number] [facility] 081 [address] 2021-07-04 2021-07-04 [facility] [id number] Univers 10:42:00 13:20:00 GULSHAN ity of [facility] 2021-07-04 2021-07-04 [facility] 1.2.324.792 [id number] Univers 10:42:00 13:20:00 Encounter Gulshan MARCUM 350.1.13.10 ity of [place] [id number] [facility] 0[address] 2021-07-04 2021-07-04 [facility] 1.2.840.114 [id number] Univers 12:00:00 12:39:00 Gulshan MARCUM 350.1.13.10 i ty of [place] [id number] [facility] 0[address] 2021-07-04 2021-07-04 Orders Doctor HAMMER 1.2.840.114 [id number] Univers 00:00:00 00:00:00 Only Unassigned, BIANCA 350.1.13.10 ity of [place] [facility] 4.2.7.2.686 Archie [id number] [facility] 009 [address] 2021-06-15 2021-06-15 OFFICE STLMLC STLC [id number] Co mmon 00:00:00 00:00:00 VISIT Richie [facility] LEVEL 4 [facility] 2021-06-12 2021-06-12 (TEL) STLMLC STLMLC [id number] Co mmon 00:00:00 00:00:00 [facility] 2021-06-05 2021-06-05 Outpatient R ANANYA [facility] [id number] Univers 10:30:00 10:30:00 GULSHAN [facility] 2021-06-03 2021-06-03 Emergency [facility] E[facility] [id number] Univers 14:00:00 22:08:00 MARIANA [facility] 2021-06-03 2021-06-03 [facility] 1.2.326.839 [id number] Univers 14:00:00 22:08:00 Mariana MARCUM 350.1.13.10 i ty of [place] 42.7.2.686 [facility] [id number] [address] 2021-06-01 2021-06-01 (TEL) [facility] STLC [id number] Co mmon 00:00:00 00:00:00 [facility] 2021-05-21 2021-05-22 Emergency [facility] ERT [id number] Univers 23:29:00 01:11:00 CONSUELO [facility] 2021-05-21 2021-05-22 Emergency [facility] 1.2.840.114 [id number] Univers 23:29:00 01:11:00 Consuelo MARCUM 350.1.13.10 i ty of [place] 4.2.7.2.686 [facility] [id number] [address] 2021-05-19 2021-05-19 Letter JAQUELIN Mendoza 1.2.840.114 [id number] Univers 00:00:00 00:00:00 (Out) Kelsy VÁZQUEZ 350.1.13.10 it y of HOSPITAL 4.2.7.2.686 Archie as [id number] [address] 2021-05-19 2021-05-19 Telephone Nurse, Phillip [facility] 1.2.840.114 [id number] Univers 00:00:00 00:00:00 Db Urgent HEALTH 350.1.13.10 ity of Care [facility] 4.2.7.2.686 Archie as GRACIE?BLEA [id number] [address] MEDICAL OFFICE BUILDING 2021-05-18 2021-05-18 Outpatient R JAROCHO [facility] [id number] Univers 09:00:00 09:41:26 RANIA ity [facility] 2021-05-18 2021-05-18 [facility]gent [facility] 1.2.840.114 [id number] Univers 09:00:00 09:20:00 Care [place], Korina HEALTH 350.1.13.10 ity of [place] 4.2.7.2.686 Archie as GRACIE?BLEA [id number] [address] MEDICAL OFFICE BUILDING 2021-05-18 2021-05-18 Letter Doctor JAQUELIN 1.2.840.114 [id number] Univers 00:00:00 00:00:00 (Out) UnassBIANCA bonilla 350.1.13.10 ity of [place] [facility] 4.2.7.2.686 Archie as [id number] [place] [address] Branch 2021-05-15 2021-05-15 (TEL) STLMLC STLMLC [id number] Co mmon 00:00:00 00:00:00 [facility] 2021-05-09 2021-05-09 (TEL) STLMLC STLMLC [id number] Co mmon 00:00:00 00:00:00 [facility] 2021-04-19 2021-04-19 (TEL) STLMLC STLMLC [id number] Co mmon 00:00:00 00:00:00 [facility] 2021-04-18 2021-04-18 Outpatient R KODI [facility] [id number] Univers 10:15:00 10:15:00 ARIK Stokes o f [facility] 2021-04-15 2021-04-15 Emergency [facility], [facility] 1.2.840.114 [id number] Univers 13:41:00 15:39:00 Consuelo MARCUM 350.1.13.10 i ty [facility] 4.2.7.2.686 [place] [facility] [id number] [place] [address] Branch 2021-04-15 2021-04-15 Nurse Nurse, Phillip [facility] 1.2.840.114 [id number] Univers 13:20:00 13:40:00 Visit Manoj [facility] 350.1.13.[address] [facility] 4.2.7.2.686 Archie as GRACIE?BLEA [phone] [address] MEDICAL OFFICE BUILDING 2021-04-15 2021-04-15 Outpatient Colette ALBERTO [facility] [id number] Univers 13:20:00 13:37:39 KORINA ity [facility] 2021-04-15 2021-04-15 Outpatient Colette ALBERTO [facility] ERT [id number] Univers 13:20:00 13:37:39 KORINA [facility] 2021-04-03 2021-04-03 OFFICE STLMLC STLC [id number] Co mmon 00:00:00 00:00:00 VISIT EST Spir it PT LEVEL 3 - [facility] 2021-03-31 2021-03-31 (TEL) STLMLC STLMLC [id number] Co mmon 00:00:00 00:00:00 Spirit [facility] 2021-03-28 2021-03-28 (TEL) STLMLC STLMLC [id number] Co mmon 00:00:00 00:00:00 [facility] 2021-03-25 2021-03-25 Emergency X [facility]WV[facility] ERT [id number] Univers 18:03:00 21:41:00 RANJUSTYNA ity [facility] 2021-03-25 2021-03-25 [facility] [id number] Univers 18:03:00 21:41:00 Consuelo MARCUM [id number] i ty of [facility] [id number] [facility] [id number] [address] 2021-03-25 2021-03-25 Out[facility] [id number] Univers 11:40:00 11:23:42 OLGA LIDIA li [facility] 2021-03-25 2021-03-25 Imm/Inj Vaccine, Ang Db [facility] [id number] Univers 11:00:13 11:10:13 Visit Hakeem [facility] [id number] ity [facility] [id number] Archie as GRACIE?BLEA [phone] [address] MEDICAL OFFICE BUILDING 2021-03-21 2021-03-21 (TEL) [facility] [id number] Co mmon 00:00:00 00:00:00 [facility] 2021-03-20 2021-03-20 Emergency X [facility] ERT [id number] Univers 16:03:00 19:39:00 MEKA li [facility] 2021-03-20 2021-03-20 Emergency [facility] [id number] Univers 16:03:00 19:39:00 Meka MARCUM 350.1.13.10 ity of [facility] 4.2.7.2.686 [facility] [phone] [address] 2021-02-12 2021-02-12 Emergency X [facility] ERT [id number] Univers 14:09:00 21:08:00 ROSALINDA li [facility] 2021-02-12 2021-02-12 Emergency [facility] 1.2.398.981 [id number] Univers 14:09:00 21:08:00 Rosalinda MARCUM 350.1.13.10 ity of [place] 4.2.7.2.686 [facility] [id number] [address] 2021-01-17 2021-01-18 Emergency [facility] 1.2.840.114 [id number] Univers 21:29:00 01:13:00 Maru Marcum 350.1.13.10 [place] of [place] [id number] [facility] [address] 2021-01-17 2021-01-18 Emergency [facility] E[facility] [id number] Univers 21:29:00 01:13:00 MARU ity [facility] 2021-01-17 2021-01-17 Orders Doctor JAQUELIN 1.2.840.114 [id number] Univers 00:00:00 00:00:00 Only Unassigned, BIANCA 350.1.13.10 ity of [place] [facility] 4.2.7.2.686 Archie as [phone] [facility] [address] 2021-01-07 2021-01-07 [facility] 1.2.369.953 [id number] [id number] Univers 11:38:27 23:59:00 Encounter [facility] 350.1.13.10 ity of [place] 4.2.7.2.686 Archie as Gracie?Blea [phone] [facility] [address] Medical [facility] Building 2021-01-07 2021-01-07 Outpatient R [facility] [id number] Univers 11:40:00 11:55:26 [facility] 2021-01-07 2021-01-07 Urgent JuveutMichael [facility] 1.2.840.114 [id number] Univers 11:22:24 11:55:26 Care [facility] 350.1.13.10 ity of [place] 4.2.7.2.686 Archie as Gracie?Blea [phone] [facility] [address] 2021-01-07 2021-01-07 Letter JAQUELIN [place] 1.2.840.114 [id number] Univers 00:00:00 00:00:00 (Out) Karlene VÁZQUEZ 350.1.13.10 i ty of HOSPITAL 4.2.7.2.686 Archie as [phone] [facility] [address] 2020-12-30 2020-12-30 Emergency X [facility] ERT [id number] Univers 13:14:00 17:53:00 MARU li [facility] 2020-12-30 2020-12-30 Emergency [facility] 1.2.840.114 [id number] Univers 13:14:00 17:53:00 Maru Marcum 350.1.13.10 [place] of [place] [phone] [facility] [address] 2020-12-30 2020-12-30 Office [facility] 1.2.840.114 [id number] Univers 10:00:12 10:49:11 Visit Vira [place] 350.1.13.10 ity of [place] Profess[place] [phone] Ks dic[address] 2020-12-30 2020-12-30 Outpatient R [facility] [id number] Univers 09:30:00 10:49:11 VIRA ity [facility] 2020-12-23 2020-12-23 [facility] 1.2.840.114 [id number] Univers 15:59:00 23:59:00 Encounter Vira [place]ston 350.1.13.10 ity of [place] 4.2.7.2.686 [facility] [place] [phone] [facility] [address] 2020-12-23 2020-12-23 [facility] 1.2.840.114 [id number] Univers 15:59:00 23:59:00 Encounter Vira Steiner [place] 350.1.13.10 ity of [place] [id number] [facility] [address] 2020-12-23 2020-12-23 Outpatient R [facility] [id number] Univers 00:00:00 00:00:00 VIRA ity [facility] 2020-12-16 2020-12-16 [facility] 1.2.840.114 [id number] Univers 09:56:42 11:11:19 Visit Vira Marcum 350.1.13.10 it[place] of [place] [facility] [phone] Ks dical nal 134 [facility] 2020-12-16 2020-12-16 Office [facility] 1.2.840.114 [id number] [facility] 09:56:42 11:11:19 Visit Vira Marcum 350.1.13.10 ity of [place] 4.2.7.2.686 [facility] [phone] Ks dical nal 134 [facility] 2020-12-16 2020-12-16 Outpatient R [facility] [id number] Univers 10:00:00 10:00:00 VIRA ity [facility] 2020-12-14 2020-12-14 (TEL) STLC STLC [id number] Co mmon 00:00:00 00:00:00 [facility] 2020-12-05 2020-12-05 Emergency [facility] 1.2.840.114 [id number] Univers 14:07:00 18:52:00 Eliana Jodie Chao 350.1.13.10 ity of [place] 4.2.7.2.686 [facility] [phone] [address] 2020-12-05 2020-12-05 Emergency X [facility] ERT [id number] Univers 14:07:00 18:52:00 FOLUSHO ity [facility] 2020-11-10 2020-11-10 Outpatient STLC STLC [id number] Common 00:00:00 00:00:00 [facility] 2020-10-11 2020-10-12 Emergency Mariana Ramirez 1.2.840. 114 [id number] Univers 08:30:00 20:40:00 Kadi Duggan 350.1.13.10 ity of [facility] 4.2.7.2.686 [place] [phone] [place] [address] 2020-10-11 2020-10-12 Out[facility] [id number] Univers 08:30:00 20:40:00 URIEL [facility] 2020-10-11 2020-10-12 Emergency Mariana Ramirez 1.2.840. 114 [id number] 08:30:00 20:40:00 Kadi Duggan Bianca 350.1.13.10 [facility] 4.2.7.2.686 [id number] 095 2020-10-04 2020-10-04 Emergency [facility] 1.2.533.401 [id number] [facility] 17:45:00 20:23:00 Maisha Marcum 350.1.13.10 i [facility] 4.2.7.2.686 [facility] [phone] [place] [address] [address] 2020-10-04 2020-10-04 Emergency X [facility] ERT [id number] Univers 17:45:00 20:23:00 MAISHA li [facility] 2020-10-04 2020-10-04 Emergency [facility] 1.2.185.867 [id number] 0623 17:45:00 20:23:00 Maisha Marcum 350.1.13.10 [place] 4.2.7.2.686 [place] [id number] 084 2020-09-30 2020-09-30 Outpatient STLMLC STLMLC [id number] Common 00:00:00 00:00:00 [facility] 2020-09-29 2020-09-29 Outpatient STLMLC STLMLC [id number] Common 00:00:00 00:00:00 [facility] 2020-09-19 2020-09-19 Outpatient STLMLC STLMLC [id number] Common 00:00:00 00:00:00 [facility] 2020-09-16 2020-09-16 Outpatient STLMLC STLMLC [id number] Common 00:00:00 00:00:00 [facility] 2020-09-02 2020-09-02 Outpatient STLMLC STLMLC [id number] Common 00:00:00 00:00:00 [facility] 2020-08-05 2020-08-05 Emergency [facility] 1.2.840.114 [id number] Univers 08:16:00 09:12:00 Maru White Chao 350.1.13.10 ity of [place] [phone] [address] 2020-08-05 2020-08-05 Emergency [facility] ERT [id number] Univers 08:16:00 09:12:00 MARU ity of [facility] 2020-08-05 2020-08-05 Emergency [facility] 1.2.840.114 [id number] 08:16:00 09:12:00 Maru J Chao 350.1.13.10 [place] 4.2.7.2.686 [place] [phone] [facility] 2020-07-19 2020-07-19 Outpatient [facility] [id number] [facility] 11:20:00 11:11:33 [facility] 2020-07-18 2020-07-18 [facility] 1.2.840.114 [id number] [facility] 06:28:00 08:29:00 Encounter Moise Goodman [place] 350.1.13.10 ity of [place].2.[place] [phone] [address] 2020-07-18 2020-07-18 [facility] 1.2.840.114 [id number] 06:28:00 08:29:00 Encounter Moise Maxine [place] 350.1.13.10 [place] 4.2.7.2.686 Surgical [id number] [place] [address] 2020-07-18 2020-07-18 Surgery [facility] 1.2.167.668 [id number] Univers 07:30:00 08:00:00 Moise S [place] 350.1.13.10 ity of [place] [id number] Med ical Center [address] 2020-07-18 2020-07-18 Surgery [facility] 1.2.840.114 [id number] 07:30:00 08:00:00 [place] 350.1.13.10 [place] 4.2.7.2.686 Surgical [id number] [place] 020 2020-07-15 2020-07-15 Outpatient Colette KEIRA [facility] [id number] Univers 08:00:00 08:00:00 MOISE ity [facility] 2020-07-11 2020-07-11 Outpatient Colette MARSH [facility] [id number] Univers 12:00:00 12:00:00 SULAIMAN [facility] 2020-07-08 2020-07-08 Out[facility] [id number] Univers 10:40:00 10:40:00 SULAIMAN [facility] 2020-07-07 2020-07-07 Emergency Jaki Polanco [facility] 1.2.840.114 [id number] Univers 18:47:00 22:05:00 Sydnie Marcum 350.1.13.10 i ty of [place].2.[place] [id number] [facility] [address] 2020-07-07 2020-07-07 Emergency X Jaki POLANCO [facility] ERT [id number] Univers 18:47:00 22:05:00 ity [facility] 2020-07-07 2020-07-07 Emergency Jaki Polanco [facility] 1.2.840.114 [id number] 18:47:00 22:05:00 Sydnie Marcum 350.1.13.10 [place] 4.2.7.2.686 [place] [id number] [facility] 2020-07-07 2020-07-07 Orders Doctor HAMMER 1.2.840.114 [id number] Univers 00:00:00 00:00:00 Only Unassigned, BIANCA 350.1.13.10 ity of [place] [facility] 4.2.7.2.686 Archie as [phone] [facility] [address] 2020-07-07 2020-07-07 Outpatient STLMLC STLMLC [id number] Common 00:00:00 00:00:00 [facility] 2020-07-07 2020-07-07 Orders Doctor JAQUELIN 1.2.840.114 [id number] 00:00:00 00:00:00 Only Unassigned, BIANCA 350.1.13.10 [place] [facility] 4.2.7.2.686 [id number] 009 2020-07-04 2020-07-04 [facility] 1.2.840.114 [id number] Univers 06:30:00 08:44:00 Encounter Moise Maxine Chao 350.1.13.10 [place] of [place] [phone] [address] 2020-07-04 2020-07-04 Outpatient [facility] JARROD [id number] Univers 06:30:00 08:44:00 MOISE ity [facility] 2020-07-04 2020-07-04 [facility] 1.2.840.114 [id number] 06:30:00 08:44:00 Encounter Moise Marcum 350.1.13.10 [place] 4.2.7.2.686 Surgical [id number] [place] [address] 2020-07-04 2020-07-04 Orders Doctor HAMMER 1.2.840.114 [id number] Univers 00:00:00 00:00:00 Only Unassigned, BIANCA 350.1.13.10 ity of [place] [facility] 4.2.7.2.686 Archie as [id number] [address] 2020-07-04 2020-07-04 Orders Doctor HAMMER 1.2.840.114 [id number] 00:00:00 00:00:00 Only Unassigned, BIANCA 350.1.13.10 [place] [facility] 4.2.7.2.686 [id number] 009 2020-07-01 2020-07-01 Laboratory Only, Adc Test [facility] 1.2.840. 114 [id number] Univers 09:02:10 09:17:10 Only Keira, Moise Marcum 350.1.13.1 0 ity of [place] 4[place].2.[place] [id number] [facility] [address] 2020-07-01 2020-07-01 Laboratory Only, [facility] 1.2.840.114 [id number] 09:02:10 09:17:10 Only Test [place] 350.1.13.10 [place] 4.2.7.2.686 [place] [id number] 353 2020-07-01 2020-07-01 Outpatient [facility] [id number] Univers 08:30:00 08:30:00 MOISE ity of [facility] 2020-07-01 2020-07-01 Orders Doctor HAMMER 1.2.840.114 [id number] Univers 00:00:00 00:00:00 Only Unassigned, BIANCA 350.1.13.10 ity of [place] [facility] 4.2.7.2.686 Archie as [phone] [facility] [address] 2020-07-01 2020-07-01 Orders Doctor HAMMER 1.2.840.114 [id number] 00:00:00 00:00:00 Only Unassigned, BIANCA 350.1.13.10 [place] [facility] 4.2.7.2.686 [id number] 009 2020-06-30 2020-06-30 Outpatient [facility] [id number] Common 00:00:00 00:00:00 [facility] 2020-06-22 2020-06-22 Outpatient [facility] [id number] Common 00:00:00 00:00:00 [facility] 2020-06-20 2020-06-20 [facility] 1.2.840.114 [id number] Univers 06:29:00 08:58:00 Encounter Moise Marcum 350.1.13.10 [place] of [place] [id number] [facility] [address] 2020-06-20 2020-06-20 [facility] [id number] [facility] 06:29:00 08:58:00 MOISE ity of [facility] 2020-06-20 2020-06-20 [facility] 1.2.840.114 [id number] 06:29:00 08:58:00 Encounter Moise Marcum 350.1.13.10 [place] 4.2.7.2.686 Surgical [id number] [place] [address] 2020-06-20 2020-06-20 Anesthesia Sumit Abe [facility] 1.2.840.11 4 [id number] [facility] 08:03:00 08:12:00 Event RayrayDominguez zapata 350.1.13.10 [place] of [place] [id number] [facility] [address] 2020-06-20 2020-06-20 Anesthesia Abe Arana [facility] 1.2.840.11 4 [id number] 08:03:00 08:12:00 Event RayrayDominguez zapata 350.1.13.10 [place] 4.2.7.2.686 Surgical [id number] [place] [address] 2020-06-20 2020-06-20 Orders Doctor JAQUELIN 1.2.840.114 [id number] Univers 00:00:00 00:00:00 Only Unassigned, BIANCA 350.1.13.10 it[place] [facility] 4.2.7.2.686 Archie as [id number] [address] 2020-06-20 2020-06-20 Orders Doctor JAQUELIN 1.2.840.114 [id number] 00:00:00 00:00:00 Only Unassigned, BIANCA 350.1.13.10 [place] [facility] 4.2.7.2.686 [id number] 009 2020-06-19 2020-06-19 Outpatient [facility] [id number] Univers 08:15:00 08:15:00 ity of [facility] 2020-06-17 2020-06-17 Material Mover Elizabeth, Marcie Lab Main [facility] 1.2.8 40.114 [id number] [facility] 15:27:53 15:42:53 Visit Moise Gamez 350.1.13.1 0 ity of [place] Profess[place] [phone] Ks dical [address] 2020-06-17 2020-06-17 Material Mover Elizabeth, [facility] 1.2.840.114 [id number] 15:27:53 15:42:53 Visit Lab Main [place] 350.1.13.10 [place] 4.2.7.2.686 Professio [id number] [address] 2020-06-17 2020-06-17 Laboratory Only, [facility] Test [facility] 1.2.840. 114 [id number] [facility] 15:26:19 15:41:19 Only Moise Gamez 350.1.13.1 0 ity of [place] 4[place]2.7.2.[place] [id number] [address] 2020-06-17 2020-06-17 Laboratory Only, [facility] 1.2.840.114 8 [id number] 15:26:19 15:41:19 Only Test [place] 350.1.13.10 [place] 4.2.7.2.686 [place] [id number] [facility] 2020-06-17 2020-06-17 Outpatient Colette GAMEZ [facility] [id number] Univers 12:30:00 12:30:00 [facility] ity [facility] 2020-06-17 2020-06-17 Orders Doctor HAMMER 1.2.840.114 [id number] Univers 00:00:00 00:00:00 Only Unassigned, BIANCA 350.1.13.10 it[place] [facility] 4.2.7.2.686 Archie as [phone] [address] 2020-06-17 2020-06-17 Orders Doctor JAQUELIN Chen.2.840.114 [id number] 00:00:00 00:00:00 Only Unassigned, BIANCA 350.1.13.10 [place] [facility] 4.2.7.2.686 [id number] 009 2020-05-22 2020-05-22 Outpatient R SALMA, [facility] [id number] Univers 08:50:00 08:50:00 SULAIMAN ity of [facility] 2020-05-06 2020-05-06 Emergency Ron, [facility] 1.2.840.114 [id number] Univers 15:21:00 18:38:00 Kirstin Marcum 350.1.13.10 i ty of [place] 4[place]2.[place].2.[place] [phone] [facility] [address] 2020-05-06 2020-05-06 Emergency Ron, [facility] 1.2.840.114 [id number] 15:21:00 18:38:00 Kirstin Marcum 350.1.13.10 [place] 4.2.7.2.686 [place] [id number] 084 2020-05-04 2020-05-04 Outpatient R [facility] [id number] Univers 09:20:00 09:20:00 ity [facility] 2020-05-04 2020-05-04 Laboratory Lab, [facility] Fam Pob I [facility] 1.2. 840.114 [id number] Univers 08:54:13 09:14:13 Only Aneroger, [facility] 350.1.13.10 ity of [place] 4.2.7.2.686 Archie as Professio [phone] Ks dic[address] Office Building One 2020-05-04 2020-05-04 Laboratory Lab, [facility] 1.2.840.114 81 [id number] 08:54:13 09:14:13 Only Fam Pob I Health 350.1.13.10 [place] 4.2.7.2.686 Professio [id number] nal [facility] Office Building One 2020-04-14 2020-04-14 Letter Jeannie Slade 1.2.840.114 80 [id number] Univers 00:00:00 00:00:00 (Out) BIANCA 350.1.13.10 it y of [facility] 4.2.7.2.686 Archie as [id number] [facility] [address] 2020-04-14 2020-04-14 Letter Jeannie Slade 1.2.840.114 80 [id number] 00:00:00 00:00:00 (Out) BIANCA 350.1.13.10 [facility] 4.2.7.2.686 [id number] 043 2020-03-25 2020-03-26 Emergency [facility] 1.2.395.713 [id number] [facility] 21:13:00 02:01:00 Gabriele Marcum 350.1.13.10 ity of [place] 4.2.7.2.686 [facility] [id number] [facility] [address] 2020-03-25 2020-03-26 Emergency [facility] 1.2.567.622 [id number] 21:13:00 02:01:00 Gabriele Marcum 350.1.13.10 [place] 4.2.7.2.686 [place] [id number] 4 2020-03-18 2020-03-18 Orders Doctor HAMMER 1.2.840.114 [id number] Univers 00:00:00 00:00:00 Only Unassigned, BIANCA 350.1.13.10 ity of [place] [facility] 4.2.7.2.686 [facility] [phone] [facility] [address] 2020-03-18 2020-03-18 Orders Doctor JAQUELIN 1.2.840.114 [id number] 00:00:00 00:00:00 Only Unassigned, BIANCA 350.1.13.10 [place] [facility] 4.2.7.2.686 [id number] 009 2020-03-08 2020-03-08 Outpatient [facility] [id number] Common 00:00:00 00:00:00 [facility] 2020-03-07 2020-03-07 Outpatient [facility] [id number] Common 00:00:00 00:00:00 [facility] 2020-01-31 2020-02-08 [facility] RamirezMariana [facility] 1.2.840.1 14 [id number] [facility] 10:39:00 16:12:00 Encounter Ron, [facility] 350.1.13.10 ity of [place] 4.2.7.2.686 [place] Katheryn Retana [phone] Ks ladonnajarod Lacypreeti Seb [facility] [address] ([facility]) 2020-01-31 2020-02-08 [facility] Mariana Ramirez [facility] 1.2.840.1 14 [id number] 10:39:00 16:12:00 Encounter Kirstin Ron [facility] 350.1.13.10 [place] 4.2.7.2.686 Katheryn Retana [place] [id number] [place] [address] ([facility]) 2020-01-11 2020-01-11 Outpatient STLC [facility] [id number] Common 00:00:00 00:00:00 [facility] 2020-01-06 2020-01-06 Outpatient STLMLC [facility] [id number] Common 00:00:00 00:00:00 [facility] 2019-12-18 2019-12-18 Emergency [facility] 1.2.911.270 [id number] [facility] 15:26:00 19:16:00 Meka Marcum 350.1.13.10 ity [facility] 4.2.7.2.686 [facility] [id number] [place] [address] [address] 2019-12-18 2019-12-18 Emergency [facility] 1.2.624.873 [id number] 15:26:00 19:16:00 Meka Marcum 350.1.13.10 [place] 4.2.7.2.686 [place] [id number] 084 2019-11-05 2019-11-05 (TEL) [facility] [id number] Co mmon 00:00:00 00:00:00 [facility] 2019-10-06 2019-10-06 [facility] [id number] Common 10:40:00 10:40:[address] [facility] 2019-09-17 2019-09-17 Out[facility] [id number] Common 10:24:00 10:24:[address] [facility] 2019-08-21 2019-08-21 Emergency [facility] [id number] Univers 19:42:19 23:51:00 GABRIELE ity of [facility] 2019-08-21 2019-08-21 Emergency Ivy, [facility] 1.2.748.161 [id number] [facility] 19:42:19 23:51:00 Gabriele Marcum 350.1.13.10 ity of [place] 4.2.7.2.[address] [place] [id number] 2019-08-21 2019-08-21 Emergency Leahtn, [facility] 1.2.964.060 [id number] 19:42:19 23:51:00 Gabriele Marcum 350.1.13.10 [place] [address] [place] [address] [id number] [facility] 2019-07-14 2019-07-14 Outpatient [facility] [id number] Common 15:00:00 15:00:00 [facility] 2019-06-25 2019-06-25 Emergency [facility], [facility] 1.2.840.114 [id number] [facility] 16:52:11 20:04:00 Kirstin Chao 350.1.13.10 i ty of [place] 4.2.7.2.[address] [place] [id number] 2019-06-25 2019-06-25 Emergency Ron, [facility] 1.2.840.114 [id number] 16:52:11 20:04:00 Kirstin Chao 350.1.13.10 [place] [address] [place] [address] [phone] [facility] 2019-06-19 2019-06-19 Emergency [facility], [facility] 1.2.723.611 [id number] [facility] 13:58:11 19:09:00 Rosalinda Marcum 350.1.13.10 ity of [place] 4.2.7.2.[address] [place] [address] [id number] 2019-06-19 2019-06-19 Emergency [facility], [facility] 1.2.479.621 [id number] 2000 13:58:11 19:09:00 Rosalinda Macrum 350.1.13.10 [place] 4.2.7.2.686 [place] [id number] 084 2019-06-19 2019-06-19 Orders Doctor JAQUELIN 1.2.840.114 [id number] Univers 00:00:00 00:00:00 Only Unassigned, BIANCA 350.1.13.10 ity [place] [facility] 4.2.7.2.686 [facility] [phone] [address] 2019-06-19 2019-06-19 Orders Doctor JAQUELIN 1.2.840.114 [id number] 00:00:00 00:00:00 Only Unassigned, BIANCA 350.1.13.10 [place] [facility] 4.2.7.2.68 [id number] [facility] 2019-05-19 2019-05-19 Emergency X SINGER [facility] ERT [id number] Univers 18:29:04 21:26:00 JADYN li [facility] 2019-05-19 2019-05-19 Emergency [facility] 1.2.420.641 [id number] [facility] 18:29:04 21:26:00 Jadyn Chao 350.1.13.10 i ty of [place] 4.2.7.2.686 [facility] [id number] [address] 2019-05-19 2019-05-19 Emergency [facility] [id number] 18:29:04 21:26:00 Jadynmoon [place] 350.1.13.10 [place] 4.2.7.2.686 [place] [id number] 08 2019-03-02 2019-03-02 [facility] [id number] Common 10:40:00 10:40:[address] [facility] 2019-02-04 2019-02-04 [facility] [id number] Common 10:55:00 10:55:[address] [facility] 2018-12-24 2018-12-24 [facility]phone [facility] 1.2.840.114 [id number] Univers 00:00:00 00:00:00 Milagros [facility] 350.1.13.10 it y of Surgical 4.2.7.2.686 Archie as Specialti [id number] Me dical es 198 [facility] 2018-12-24 2018-12-[address] [facility] 1.2.840.114 [id number] 00:00:00 00:00:00 Milagros Chen 350.1.13.10 Surgical 4.2.7.2.686 Specialti [id number] es [address] [place] [address] 2018-12-18 2018-12-18 [facility] 1.2.840.114 [id number] [facility] 08:54:57 23:59:00 Encounter Milagros Chen 350.1.13.10 ity of Surgical 4.2.7.2.686 Archie as Specialti [id number] [place] dical es 809 [facility] 2018-12-18 2018-12-[address] [facility] [id number] Univers 08:37:16 09:02:40 Visit Milagros Steienr [employer] 350.1.13.10 it y of Surgical 4.2.7.2.686 Archie as Specialti [id number] [place] dical es 198 [facility] 2018-12-08 2018-12-[address] [facility] 1.2.343.267 [id number] Univers 15:02:42 15:51:02 Visit Milagros Steiner [employer] 350.1.13.10 it y of Surgical 4.2.7.2.686 Archie as Specialti [phone] [place] dical es 198 [facility] 2018-12-05 2018-12-05 [facility] 1.2.840.114 [id number] Univers 09:47:09 23:59:00 Encounter Ector Maxine [place] 350.1.13.10 [place] of [place] [phone] [address] 2018-12-05 2018-12-[address] [facility] 1.2.198.643 [id number] Univers 07:55:02 09:26:33 Visit Milagros Steiner Cognitive Match 350.1.13.10 it y of Surgical 4.2.7.2.686 Archie as Specialti [phone] [place] dical es [address] [place] 2018-12-01 2018-12-01 Emergency Jaki Polanco [facility] 1.2.840.114 [id number] Univers 14:24:08 18:38:00 Sydnie Marcum 350.1.13.10 i [place] [phone] [facility] [address] 2018-11-18 2018-11-18 Transition Nhan Smith 1.2.840.114 [id number] Univers 00:00:00 00:00:00 of Care Pricilla Wills 350.1.13.10 it [place] [phone] [facility] [address] 2018-11-15 2018-11-17 Emergency Mariana Ramirez 1.2.840. 114 [id number] Univers 09:29:33 16:00:00 Sundar Brooke 350.1.13.10 ity of [facility] 4.2.7.2.686 [place] [phone] [facility] [address] 2018-10-07 2018-10-07 [facility] [id number] Common 11:00:00 11:00:00 [place] [address] [facility] 2018-07-28 2018-07-28 [facility] 25 [id number] Common 09:57:00 09:57:00 [place] [address] [facility] 2018-07-25 2018-07-25 [facility] 25 [id number] Common 14:40:00 14:40:00 [address] [place] [address] [facility] Results Test Description Test Time Test Comments [...] L [Au tomated message] The system which Results [employer] nerated this result transmit gulshan reference range: [...] 32.8 g/dL 31.6-35.1 RDW-SD (test code = 51023-5) 48.9 fL 39.0-49.9 RDW-CV (test code = 788-0) 14.6 % 12.0-15.5 PLT (test code = 777-3) 179 See_Comment [Au tomated message] The system which Results [employer] nerated this result transmit gulshan reference range: 166 - 35 8 10*3/?L. The reference range was not used to interpret th is result as normal/abnormal . MPV (test code = 79903-2) 10.9 fL 9.5-12.9 NRBC/100 WBC (test code = 0.0 See_Comment [ Automated message] The 4030871567) system which Results [employer] nerated this result transmit gulshan reference range: 0.0 - 10 .0 /100 WBCs. The reference r luca was not used to interpr et this result as normal/abnor mal. NRBC x10^3 (test code = See_Comment [Au tomated message] The 2880063460) system which Results [employer] nerated this result transmit gulshan reference range: 10*3/?L. The reference range was not u sed to interpret this result as normal/abnormal . GRAN MAT (NEUT) % (test code 56.0 % = 770-8) IMM GRAN % (test code = 1.00 % 7535327284) LYMPH % (test code = 736-9) 34.1 % MONO % (test code = 5905-5) 7.3 % EOS % (test code = 713-8) 1.3 % BASO % (test code = 706-2) 0.3 % GRAN MAT x10^3(ANC) (test 1.76 10*3/uL 1.88-7.09 L code = 7331062037) IMM GRAN x10^3 (test code = 0.03 10*3/uL 0.00-0.06 5336877896) LYMPH x10^3 (test code = 1.07 10*3/uL 1.32-3.29 L 731-0) MONO x10^3 (test code = 0.23 10*3/uL 0.33-0.92 L 742-7) EOS x10^3 (test code = 0.04 10*3/uL 0.03-0.39 711-2) BASO x10^3 (test code = 0.01-0.07 704-7) GIANT PLATELETS (test code = Present See_Comment A [Automated message] The 5908-9) system which ge nerated this result transmit gulshan reference range: (none). The reference range was not u sed to interpret this result as normal/abnormal . Lab Interpretation (test Abnormal code = 81471-1) [facility] Metabolic Panel (NA, K, CL, CO2, GLUCOSE, BUN, CREATININE, CA)2022-07-31 11:30:44 Test Item Value Reference Range Interpretation Comments NA (test code = 136 mmol/L 135-145 3677212220) K (test code = 3.7 mmol/L 3.5-5.0 9585362559) CL (test code = 109 mmol/L 98-108 H 1710056522) CO2 TOTAL (test code = 21 mmol/L 23-31 L 7165800944) AGAP (test code = 6 2-16 1047724795) BUN (test code = 11 mg/dL 7-23 2460689443) GLUCOSE (test code = 81 mg/dL 70-110 0271842503) CREATININE (test code = 0.45 mg/dL 0.50-1.04 L 7753890481) CALCIUM (test code = 8.6 mg/dL 8.6-10.6 1890422266) eGFR (test code = 142.6 mL/min/1.73m2 2960480056) KIM (test code = KIM) Association of [...] tests). Lab Interpretation Abnormal (test code = 18145-9) [facility] 11:30:23 Test Item Value Reference Range Interpretation Comments LIPASE (test code = 4565987912) 307 U/L 0-220 H Lab Interpretation (test code = Abnormal 68801-4) [facility] METABOLIC PANEL (10934)2022-07-30 23:56:34 Test Item Value Reference Range Interpretation Comments NA (test code = 138 mmol/L 135-145 7648158166) K (test code = 3.9 mmol/L 3.5-5.0 7217353774) CL (test code = 106 mmol/L 98-108 5644900977) CO2 TOTAL (test code = 21 mmol/L 23-31 L 6486339452) AGAP (test code = 11 2-16 7958785152) BUN (test code = 12 mg/dL 7-23 6866761878) GLUCOSE (test code = 86 mg/dL 70-110 4728828784) CREATININE (test code = 0.46 mg/dL 0.50-1.04 L 3649875638) TOTAL BILI (test code = 2.7 mg/dL 0.1-1.1 H 1930697330) CALCIUM (test code = 9.0 mg/dL 8.6-10.6 2451007364) T PROTEIN (test code = 7.2 g/dL 6.3-8.2 3006498710) ALBUMIN (test code = 4.1 g/dL 3.5-5.0 0168320666) ALK PHOS (test code = 841 U/L 34-122 H 9666773530) ALTv (test code = 154 U/L 5-35 H 1742-6) AST(SGOT) (test code = 159 U/L 13-40 H 4091744522) eGFR (test code = 139.0 mL/min/1.73m2 3007602949) KIM (test code = KIM) Association of [...] tests). Lab Interpretation Abnormal (test code = 10711-8) [facility]20[facility]17 23:56:14 Test Item Value Reference Range Interpretation Comments LIPASE (test code = 3220920857) 70 U/L 0-220 Lab Interpretation (test code = Normal 99092-8) [facility] TexasACTIVATED PARTIAL THRMPLAS [id number] 23:54:13 Test Item Value Reference Range Interpretation Comments APTT Patient (test 26 See_Comment [Automat ed code = 3173-2) message] The system which generated this result transmitted reference range : 23 - 38 Seconds . The reference range was not used to interpr et this result as normal/abnormal . KIM (test code = KIM) The [facility] patient population mean normal value for aPTT is 30 seconds. Lab Interpretation Normal (test code = 24642-8) [facility] TexasPROTHROMBIN TIME / [id number] 23:52:12 Test Item Value Reference Range Interpretation [...] tions. Lab Interpretation (test Normal code = 50800-8) [facility] TexasCBC WITH [id number] 23:44:51 Test Item Value Reference Range Interpretation Comments WBC (test code = 4.50 See_Comment [Automated 2190-2) message] The sy stem which generated this result transmitted reference range : 4.30 - 11.10 10*3/?L. The reference range was not used to interpret this result as normal/abnormal . RBC (test code = 3.16 See_Comment L [Automated 789-8) message] The sy [...] RDW-SD (test code = 48.9 fL 39.0-49.9 22486-5) RDW-CV (test code = 14.6 % 12.0-15.5 788-0) PLT (test code = 200 See_Comment [Automated 777-3) message] The sy stem which generated this result transmitted reference range : 166 - 358 10*3/ ?L. The reference r lcua was not used to interpret this result as normal/abnormal . MPV (test code = 10.4 fL 9.5-12.9 82847-6) NRBC/100 WBC (test 0.0 See_Comment [Automat ed code = 4780141591) message] The system which generated this result transmitted reference range : 0.0 - 10.0 /100 WBCs. The refer ence range was not u sed to interpret th is result as normal/abnormal . NRBC x10^3 (test code See_Comment [Auto mated = 3190277581) message] The s ystem which generated this result transmitted reference range : 10*3/?L. The reference range was not used to interpret this result as normal/abnormal . GRAN MAT (NEUT) % 73.4 % (test code = 770-8) IMM GRAN % (test code 0.20 % = 5395934638) LYMPH % (test code = 18.9 % 736-9) MONO % (test code = 6.4 % 5905-5) EOS % (test code = 0.4 % 713-8) BASO % (test code = 0.7 % 706-2) GRAN MAT x10^3(ANC) 3.30 10*3/uL 1.88-7.09 (test code = 9297214336) IMM GRAN x10^3 (test 0.00-0.06 code = 9340968696) LYMPH x10^3 (test code 0.85 10*3/uL 1.32-3.29 L = 731-0) MONO x10^3 (test code 0.29 10*3/uL 0.33-0.92 L = 742-7) EOS x10^3 (test code = 0.03-0.39 L 711-2) BASO x10^3 (test code 0.03 10*3/uL 0.01-0.07 = 704-7) Lab Interpretation Abnormal (test code = 88155-2) [facility] TexasGLYCOSYLATED HEMOGLOBIN (A1C)2022-04-26 11:07:42 Test Item Value Reference Range Interpretation Comments HGB A1C (test code = 4.5 % 4.0-5.7 4548-4) KIM (test code = KIM) Reference RangesNormal: <5.7%Prediabetes: 5.7 - 6.4%Diabetes: > 6.5% Lab Interpretation (test Normal code = 69136-2) [facility] TexasGLYCOSYLATED HEMOGLOBIN (A1C)2022-04-26 11:07:42 Test Item Value Reference Range Interpretation Comments HGB A1C (test code = 4.5 % 4.0-5.7 4548-4) KIM (test code = KIM) Reference RangesNormal: <5.7%Prediabetes: 5.7 - 6.4%Diabetes: > 6.5% Lab Interpretation (test Normal code = 03211-1) [facility] TexasCOMP. METABOLIC PANEL (08238)2022-04-26 00:04:36 Test Item Value Reference Range Interpretation Comments NA (test code = 139 mmol/L 135-145 7043165594) K (test code = 4.3 mmol/L 3.5-5.0 3353633688) CL (test code = 105 mmol/L 98-108 5764920766) CO2 TOTAL (test code = 22 mmol/L 23-31 L 3405052585) AGAP (test code = 2-16 3335735103) BUN (test code = 22 mg/dL 7-23 3332611091) GLUCOSE (test code = 94 mg/dL 70-110 9819816640) CREATININE (test code = 0.86 mg/dL 0.50-1.04 7245156880) TOTAL BILI (test code = 2.1 mg/dL 0.1-1.1 H 3761270268) CALCIUM (test code = 9.0 mg/dL 8.6-10.6 3730040581) T PROTEIN (test code = 8.1 g/dL 6.3-8.2 4042237174) ALBUMIN (test code = 4.4 g/dL 3.5-5.0 6895012634) ALK PHOS (test code = 1234 U/L 34-122 H 3862095792) ALTv (test code = 166 U/L 5-35 H 1742-6) AST(SGOT) (test code = 182 U/L 13-40 H 0855534436) eGFR (test code = mL/min/1.73m2 9161332560) KIM (test code = KIM) Association of [...] tests). Lab Interpretation Abnormal (test code = 40403-7) [facility]2023-01-12 00:04:36 Test Item Value Reference Range Interpretation Comments LIPASE (test code = 3440466113) 137 U/L 0-220 Lab Interpretation (test code = Normal 21643-9) [facility]COMP. METABOLIC PANEL (70116)2022-04-26 00:04:36 Test Item Value Reference Range Interpretation Comments NA (test code = 139 mmol/L 135-145 3179821448) K (test code = 4.3 mmol/L 3.5-5.0 7044521100) CL (test code = 105 mmol/L 98-108 4442330082) CO2 TOTAL (test code = 22 mmol/L 23-31 L 2573155748) AGAP (test code = 2-16 4922428894) BUN (test code = 22 mg/dL 7-23 0561882610) GLUCOSE (test code = 94 mg/dL 70-110 4502858098) CREATININE (test code = 0.86 mg/dL 0.50-1.04 3230607223) TOTAL BILI (test code = 2.1 mg/dL 0.1-1.1 H 9124181588) CALCIUM (test code = 9.0 mg/dL 8.6-10.6 1082243119) T PROTEIN (test code = 8.1 g/dL 6.3-8.2 2879749778) ALBUMIN (test code = 4.4 g/dL 3.5-5.0 0377405208) ALK PHOS (test code = 1234 U/L 34-122 H 6322261977) ALTv (test code = 166 U/L 5-35 H 1742-6) AST(SGOT) (test code = 182 U/L 13-40 H 5231629854) eGFR (test code = mL/min/1.73m2 5476551060) KIM (test code = KIM) Association of [...] tests). Lab Interpretation Abnormal (test code = 87913-2) [facility]2023-01-12 00:04:36 Test Item Value Reference Range Interpretation Comments LIPASE (test code = 2602274878) 137 U/L 0-220 Lab Interpretation (test code = Normal 31786-4) [facility]CB WITH [id number] 23:46:13 Test Item Value Reference Range Interpretation Comments WBC (test code = See_Comment [Automated 1890-2) message] The sy stem which generated this result transmitted reference range : 4.30 - 11.10 10*3/?L. The reference range was not used to interpret this result as normal/abnormal . RBC (test code = See_Comment L [Automated 109-8) message] The sy stem which generated this [...] RDW-SD (test code = 48.8 fL 39.0-49.9 85066-5) RDW-CV (test code = 14.4 % 12.0-15.5 788-0) PLT (test code = See_Comment [Automated 777-3) message] The sy stem which generated this result transmitted reference range : 166 - 358 10*3/ ?L. The reference r luca was not used to interpret this result as normal/abnormal . MPV (test code = 10.1 fL 9.5-12.9 17400-3) NRBC/100 WBC (test See_Comment [Automat ed code = 0861638332) message] The system which generated this result transmitted reference range : 0.0 - 10.0 /100 WBCs. The refer ence range was not u sed to interpret th is result as normal/abnormal . NRBC x10^3 (test code See_Comment [Auto mated = 7609759405) message] The s ystem which generated this result transmitted reference range : 10*3/?L. The reference range was not used to interpret this result as normal/abnormal . GRAN MAT (NEUT) % 70.1 % (test code = 770-8) IMM GRAN % (test code 0.20 % = 8084526617) LYMPH % (test code = 20.2 % 736-9) MONO % (test code = 8.0 % 5905-5) EOS % (test code = 1.1 % 713-8) BASO % (test code = 0.4 % 706-2) GRAN MAT x10^3(ANC) 3.22 10*3/uL 1.88-7.09 (test code = 1823250201) IMM GRAN x10^3 (test 0.00-0.06 code = 6490566887) LYMPH x10^3 (test code 0.93 10*3/uL 1.32-3.29 L = 731-0) MONO x10^3 (test code 0.37 10*3/uL 0.33-0.92 = 742-7) EOS x10^3 (test code = 0.05 10*3/uL 0.03-0.39 711-2) BASO x10^3 (test code 0.01-0.07 = 704-7) Lab Interpretation Abnormal (test code = 84263-4) [facility] WITH [id number] 23:46:13 Test Item Value Reference Range Interpretation Comments WBC (test code = See_Comment [Automated 8790-2) message] The sy stem which generated this result transmitted reference range : 4.30 - 11.10 10*3/?L. The reference range was not used to interpret this result as normal/abnormal . RBC (test code = See_Comment L [Automated 289-8) message] The sy stem which generated this [...] RDW-SD (test code = 48.8 fL 39.0-49.9 64137-3) RDW-CV (test code = 14.4 % 12.0-15.5 788-0) PLT (test code = See_Comment [Automated 777-3) message] The sy stem which generated this result transmitted reference range : 166 - 358 10*3/ ?L. The reference r luca was not used to interpret this result as normal/abnormal . MPV (test code = 10.1 fL 9.5-12.9 92696-0) NRBC/100 WBC (test See_Comment [Automat ed code = 4909571572) message] The system which generated this result transmitted reference range : 0.0 - 10.0 /100 WBCs. The refer ence range was not u sed to interpret th is result as normal/abnormal . NRBC x10^3 (test code See_Comment [Auto mated = 8747545725) message] The s ystem which generated this result transmitted reference range : 10*3/?L. The reference range was not used to interpret this result as normal/abnormal . GRAN MAT (NEUT) % 70.1 % (test code = 770-8) IMM GRAN % (test code 0.20 % = 6791557012) LYMPH % (test code = 20.2 % 736-9) MONO % (test code = 8.0 % 5905-5) EOS % (test code = 1.1 % 713-8) BASO % (test code = 0.4 % 706-2) GRAN MAT x10^3(ANC) 3.22 10*3/uL 1.88-7.09 (test code = 0217132221) IMM GRAN x10^3 (test 0.00-0.06 code = 0076358955) LYMPH x10^3 (test code 0.93 10*3/uL 1.32-3.29 L = 731-0) MONO x10^3 (test code 0.37 10*3/uL 0.33-0.92 = 742-7) EOS x10^3 (test code = 0.05 10*3/uL 0.03-0.39 711-2) BASO x10^3 (test code 0.01-0.07 = 704-7) Lab Interpretation Abnormal (test code = 85322-3) [facility] METABOLIC PANEL (NA, K, CL, CO2, GLUCOSE, BUN, CREATININE, CA)2022-02-06 10:05:29 Test Item Value Reference Range Interpretation Comments NA (test code = 137 mmol/L 135-145 6056842732) K (test code = 3.0 mmol/L 3.5-5 L 6739663584) CL (test code = 107 mmol/L 98-108 8200913566) CO2 TOTAL (test code = 23 mmol/L 23-31 5613878700) AGAP (test code = 2-16 0206317493) BUN (test code = 4 mg/dL 7-23 L 1139375751) GLUCOSE (test code = 108 mg/dL 70-110 7342987927) CREATININE (test code = 0.40 mg/dL 0.5-1.04 L 5160002084) CALCIUM (test code = 8.1 mg/dL 8.6-10.6 L 2372782143) eGFR (test code = mL/min/1.73m2 9169602322) KIM (test code = KIM) Association of [...] tests). Lab Interpretation Abnormal (test code = 71433-0) [facility] WITH [id number] 09:44:25 Test Item Value Reference Range Interpretation [...] (test code = 52.6 fL 39-49.9 H 37900-5) RDW-CV (test code = 15.3 % 12-15.5 788-0) PLT (test code = See_Comment [Automated 777-3) message] The sy stem which generated this result transmitted reference range : 166 - 358 10*3/ ?L. The reference r luca was not used to interpret this result as normal/abnormal . MPV (test code = 9.4 fL 9.5-12.9 L 43799-8) NRBC/100 WBC (test See_Comment [Automat ed code = 7248185494) message] The system which generated this result transmitted reference range : 0.0 - 10.0 /100 WBCs. The refer ence range was not u sed to interpret th is result as normal/abnormal . NRBC x10^3 (test code See_Comment [Auto mated = 3744225143) message] The s ystem which generated this result transmitted reference range : 10*3/?L. The reference range was not used to interpret this result as normal/abnormal . GRAN MAT (NEUT) % 70.4 % (test code = 770-8) IMM GRAN % (test code 0.50 % = 2477769429) LYMPH % (test code = 17.2 % 736-9) MONO % (test code = 10.3 % 5905-5) EOS % (test code = 1.3 % 713-8) BASO % (test code = 0.3 % 706-2) GRAN MAT x10^3(ANC) 2.67 10*3/uL 1.88-7.09 (test code = 6679414703) IMM GRAN x10^3 (test 0-0.06 code = 2572030512) LYMPH x10^3 (test code 0.65 10*3/uL 1.32-3.29 L = 731-0) MONO x10^3 (test code 0.39 10*3/uL 0.33-0.92 = 742-7) EOS x10^3 (test code = 0.05 10*3/uL 0.03-0.39 711-2) BASO x10^3 (test code 0.01-0.07 = 704-7) Lab Interpretation Abnormal (test code = 48545-7) [facility] Texas[facility] PAN[facility] (15852)(TOTAL CHOLESTEROL, TRIGLYCERIDES, HDL)2022-02-04 02:32:52 Test Item Value Reference Range Interpretation Comments CHOL (test code = 344 mg/dL 120-200 H 8351074309) HDL (test code = 85 mg/dL See_Comment [Automated message] 2358282938) The system [employer] generated this result transmit gulshan reference range : >=50. The refer ence range was not u sed to interpret th is result as normal/abnormal . HDLC RATIO (test code = See_Comment [Au tomated message] 4880418978) The system [employer] generated this result transmit gulshan reference range : <=4.5. The refe rence range was not u sed to interpret th is result as normal/abnormal . TRIG (test code = 144 mg/dL 30-170 2471461131) LDL CHOL (test code = 230 mg/dL See_Comment H [Auto mated message] 75864-0) The system [employer] generated this result transmit gulshan reference range : <=160. The refe rence range was not u sed to interpret th is result as normal/abnormal . VLDL (test code = 29 mg/dL 5-60 4737349479) Lab Interpretation (test Abnormal code = 09381-4) [facility] TexasSERUM DRUG (IMMUNOASSAY) - COMPREHENSIVE DRUG [id number] 23:28:12 Test Item Value Reference Range Interpretation Comments SLIM S (test code = Negative Negative 4670768004) BENZO S (test code = Negative Negative 8095061718) TRICYCLIC (test code = Presumptive Positive Negative A 6504913555) KIM (test code = KIM) Serum Drug Screen Cutoff Ranges Barbiturates ? ? - 3 mcg/mLBenzodiazepines ?- 50 ng/mLTCA ?- 300 ng/mL Test developed and characteristics determined by [facility] Laboratory Services. The results are to be used only for medical (i.e., treatment) purposes. Unconfirmed screening results must not be used for non-medical purposes (e.g., employment testing, legal testing). Lab Interpretation Abnormal (test code = 43950-4) [facility] TexasETHANOL2022-10-22 16:58:54 ALCOHOL<10mg/dL02/03/2022 11:58 AM [facility]<10 Rivcnefm59-550 Toxic>100 Depression of REPAIR TECHNICIAN>400 Fatalities Rep[facility]UnC[facility] PlainviewCOMP. METABOLIC PANEL (89080) 2022-02-03 16:24:17 Test Item Value Reference Range Interpretation Comments NA (test code = 138 mmol/L 135-145 7873100234) K (test code = 4.2 mmol/L 3.5-5 3139665980) CL (test code = 102 mmol/L 98-108 6640879657) CO2 TOTAL (test code = 24 mmol/L 23-31 2547217562) AGAP (test code = 2-16 8086477389) BUN (test code = 19 mg/dL 7-23 7920337927) GLUCOSE (test code = 128 mg/dL 70-110 H 0550928891) CREATININE (test code = 0.56 mg/dL 0.5-1.04 2705193978) TOTAL BILI (test code = 2.7 mg/dL 0.1-1.1 H 0324968885) CALCIUM (test code = 8.7 mg/dL 8.6-10.6 9069818420) T PROTEIN (test code = 7.2 g/dL 6.3-8.2 3783105711) ALBUMIN (test code = 4.0 g/dL 3.5-5 0880997089) ALK PHOS (test code = 627 U/L 34-122 H 9342068253) ALTv (test code = 77 U/L 5-35 H 1742-6) AST(SGOT) (test code = 87 U/L 13-40 H 1738644462) eGFR (test code = mL/min/1.73m2 7395616493) KIM (test code = KIM) Association of [...] tests). Lab Interpretation Abnormal (test code = 97415-3) [facility]2022-10-22 16:23:57 Test Item Value Reference Range Interpretation Comments LIPASE (test code = 1386694235) 35 U/L 0-220 Lab Interpretation (test code = Normal 04763-6) [facility] TexasAMYLASE2022-10-22 16:23:11 Test Item Value Reference Range Interpretation Comments JORGE (test code = 9432994718) 42 U/L 35-110 Lab Interpretation (test code = Normal 22638-3) [facility] WITH [id number] 16:10:32 Test Item Value Reference Range Interpretation [...] (test code = 55.9 fL 39-49.9 H 19709-7) RDW-CV (test code = 15.9 % 12-15.5 H 788-0) PLT (test code = See_Comment [Automated 777-3) message] The sy stem which generated this result transmitted reference range : 166 - 358 10*3/ ?L. The reference r luca was not used to interpret this result as normal/abnormal . MPV (test code = 9.5 fL 9.5-12.9 19215-6) NRBC/100 WBC (test See_Comment [Automat ed code = 1047753383) message] The system which generated this result transmitted reference range : 0.0 - 10.0 /100 WBCs. The refer ence range was not u sed to interpret th is result as normal/abnormal . NRBC x10^3 (test code See_Comment [Auto mated = 1610264703) message] The s ystem which generated this result transmitted reference range : 10*3/?L. The reference range was not used to interpret this result as normal/abnormal . GRAN MAT (NEUT) % 88.9 % (test code = 770-8) IMM GRAN % (test code 0.20 % = 7261906652) LYMPH % (test code = 4.9 % 736-9) MONO % (test code = 5.8 % 5905-5) EOS % (test code = 0.0 % 713-8) BASO % (test code = 0.2 % 706-2) GRAN MAT x10^3(ANC) 4.72 10*3/uL 1.88-7.09 (test code = 5932805033) IMM GRAN x10^3 (test 0-0.06 code = 5628801720) LYMPH x10^3 (test code 0.26 10*3/uL 1.32-3.29 L = 731-0) MONO x10^3 (test code 0.31 10*3/uL 0.33-0.92 L = 742-7) EOS x10^3 (test code = 0.03-0.39 L 711-2) BASO x10^3 (test code 0.01-0.07 = 704-7) Lab Interpretation Abnormal (test code = 14480-6) [facility] WITH [id number] 10:06:02 Test Item Value Reference Range Interpretation [...] RDW-SD (test code = 45.6 fL 39.0-49.9 35444-5) RDW-CV (test code = 13.2 % 12.0-15.5 788-0) PLT (test code = See_Comment [Automated 777-3) message] The sy stem which generated this result transmitted reference range : 166 - 358 10*3/ ?L. The reference r luca was not used to interpret this result as normal/abnormal . MPV (test code = 10.1 fL 9.5-12.9 33188-4) NRBC/100 WBC (test See_Comment [Automat ed code = [id number]) message] The system which generated this result transmitted reference range : 0.0 - 10.0 /100 WBCs. The refer ence range was not u sed to interpret th is result as normal/abnormal . NRBC x10^3 (test code <0.01 See_Comment [Auto mated = [id number]) message] The s ystem which generated this result transmitted reference range : 10*3/?L. The reference range was not used to interpret this result as normal/abnormal . GRAN MAT (NEUT) % 47.9 % (test code = 770-8) IMM GRAN % (test code 0.30 % = [id number]) LYMPH % (test code = 39.0 % 736-9) MONO % (test code = 9.8 % 5905-5) EOS % (test code = 2.5 % 713-8) BASO % (test code = 0.5 % 706-2) GRAN MAT x10^3(ANC) 1.76 10*3/uL 1.88-7.09 L (test code = [id number]) IMM GRAN x10^3 (test <0.03 0.00-0.06 code = [id number]) LYMPH x10^3 (test code 1.43 10*3/uL 1.32-3.29 = 731-0) MONO x10^3 (test code 0.36 10*3/uL 0.33-0.92 = 742-7) EOS x10^3 (test code = 0.09 10*3/uL 0.03-0.39 711-2) BASO x10^3 (test code <0.03 0.01-0.07 = 704-7) Lab Interpretation Abnormal (test code = 17917-4) Formerly [facility]. METABOLIC PANEL (47345)2021-09-08 10:01:57 Test Item Value Reference Range Interpretation Comments NA (test code = 137 mmol/L 135-145 4615900156) K (test code = 4.4 mmol/L 3.5-5.0 1731275281) CL (test code = 105 mmol/L 98-108 8920642339) CO2 TOTAL (test code = 27 mmol/L 23-31 5901985050) AGAP (test code = 2-16 5547270454) BUN (test code = 16 mg/dL 7-23 6606895698) GLUCOSE (test code = 91 mg/dL 70-110 2958427670) CREATININE (test code = 0.80 mg/dL 0.50-1.04 4571342643) TOTAL BILI (test code = 1.3 mg/dL 0.1-1.1 H 7262347236) CALCIUM (test code = 8.9 mg/dL 8.6-10.6 2865402310) T PROTEIN (test code = 7.4 g/dL 6.3-8.2 8637982218) ALBUMIN (test code = 4.0 g/dL 3.5-5.0 9586464508) ALK PHOS (test code = 422 U/L 34-122 H 1099179848) ALTv (test code = 64 U/L 5-35 H 1742-6) AST(SGOT) (test code = 53 U/L 13-40 H 6198832128) eGFR (test code = mL/min/1.73m2 8149093105) KIM (test code = KIM) Association of [...] tests). Lab Interpretation Abnormal (test code = 37242-7) [facility]2022-[facility]-27 10:01:57 Test Item Value Reference Range Interpretation Comments MAGNESIUM (test code = 3825809917) 2.1 mg/dL 1.7-2.4 Lab Interpretation (test code = Normal 81392-7) [facility] TexasEBV QUANTITATIVE [id number] 14:36:03 Test Item Value Reference Range Interpretation Comments Jocelyn-Quiros Plasma Virus, Quant. Source (test code = 28882-3) Jocelyn-Quiros <390 cpy/mL Virus, Quant. Copy/mL (test code = 74757-0) Jocelyn-Quiros <2.6 log INTERPRETIVE Virus, Quant. Log INFORMATIO N: Jocleyn (test code = [place] [address]-5) Quantitative PC RThe quantitative ra nge of [...] of detection by th e assay.Performed by [employer],[address] [place] <truncated> [facility] TexasMAGN[facility]2022-05-26 08:53:00 Test Item Value Reference Range Interpretation Comments MAGNESIUM (test code = 4089856867) 1.6 mg/dL 1.7-2.4 L Lab Interpretation (test code = Abnormal 44102-2) [facility] (NA, K, CL, CO2, GLUCOSE, BUN, CREATININE, CA)2021-09-07 08:53:00 Test Item Value Reference Range Interpretation Comments NA (test code = 136 mmol/L 135-145 1768019298) K (test code = 4.6 mmol/L 3.5-5.0 4082723555) CL (test code = 103 mmol/L 98-108 9560763969) CO2 TOTAL (test code 26 mmol/L 23-31 = 8046636660) AGAP (test code = 2-16 1210690151) BUN (test code = 14 mg/dL 7-23 0398164411) GLUCOSE (test code = 100 mg/dL 70-110 9096116144) CREATININE (test code 0.64 mg/dL 0.50-1.04 = 9932902823) CALCIUM (test code = 8.9 mg/dL 8.6-10.6 6906249956) eGFR (test code = mL/min/1.73m2 4319569666) KIM (test code = KIM) Association of [...] or urine or abnormalities in imaging tests). [facility] TexasHEPAT[facility] FUNCTION PANEL (61051) (ALB,T.PRO,BILI T,BU/BC,ALT,AST,ALK PHOS)2021-09-07 08:53:00 Test Item Value Reference Range Interpretation Comments TOTAL BILI (test code = 0924835156) 1.2 mg/dL 0.1-1.1 H BILI UNCON (test code = 6854969032) 0.3 mg/dL 0.1-1.1 BILI CONJ (test code = 8531423365) 0.0 mg/dL 0.0-0.3 T PROTEIN (test code = 1576440791) 7.2 g/dL 6.3-8.2 ALBUMIN (test code = 0495695491) 3.9 g/dL 3.5-5.0 ALK PHOS (test code = 6709059749) 449 U/L 34-122 H ALTv (test code = 1742-6) 75 U/L 5-35 H AST(SGOT) (test code = 5895981793) 55 U/L 13-40 H Lab Interpretation (test code = Abnormal 74282-3) [facility] WITH [id number] 08:24:58 Test Item Value Reference Range Interpretation [...] RDW-SD (test code = 45.1 fL 39.0-49.9 75995-0) RDW-CV (test code = 13.2 % 12.0-15.5 788-0) PLT (test code = See_Comment L [Automated 777-3) message] The sy stem which generated this result transmitted reference range : 166 - 358 10*3/ ?L. The reference r luca was not used to interpret this result as normal/abnormal . MPV (test code = 10.0 fL 9.5-12.9 55941-7) NRBC/100 WBC (test See_Comment [Automat ed code = 0906092586) message] The system which generated this result transmitted reference range : 0.0 - 10.0 /100 WBCs. The refer ence range was not u sed to interpret th is result as normal/abnormal . NRBC x10^3 (test code <0.01 See_Comment [Auto mated = 7157719082) message] The s ystem which generated this result transmitted reference range : 10*3/?L. The reference range was not used to interpret this result as normal/abnormal . GRAN MAT (NEUT) % 41.2 % (test code = 770-8) IMM GRAN % (test code 0.30 % = 1193444583) LYMPH % (test code = 45.5 % 736-9) MONO % (test code = 10.0 % 5905-5) EOS % (test code = 2.3 % 713-8) BASO % (test code = 0.7 % 706-2) GRAN MAT x10^3(ANC) 1.24 10*3/uL 1.88-7.09 L (test code = 7197679311) IMM GRAN x10^3 (test <0.03 0.00-0.06 code = 6931850334) LYMPH x10^3 (test code 1.37 10*3/uL 1.32-3.29 = 731-0) MONO x10^3 (test code 0.30 10*3/uL 0.33-0.92 L = 742-7) EOS x10^3 (test code = 0.07 10*3/uL 0.03-0.39 711-2) BASO x10^3 (test code <0.03 0.01-0.07 = 704-7) Lab Interpretation Abnormal (test code = 07345-8) [facility] TexasANTI-NUCLEAR ANTIBODY-PATHOLOGIST [id number] 17:03:59ANA - Pathologist InterpretationANA HEp-2 IIFA Pathologist [...] ? Marnie Mayorga MD ?09/06/2021 ?12:02 PM ?[facility] (NA, K, CL, CO2, GLUCOSE, BUN, CREATININE, CA)2021-09-06 10:30:13 Test Item Value Reference Range Interpretation Comments NA (test code = 137 mmol/L 135-145 9188733340) K (test code = 4.5 mmol/L 3.5-5.0 Slight hemoly sis 0303812402) CL (test code = 105 mmol/L 98-108 3469788973) CO2 TOTAL (test 27 mmol/L 23-31 code = 6467519074) AGAP (test code = 2-16 3411628480) BUN (test code = 15 mg/dL 7-23 Slight hemo lysis 1556955539) GLUCOSE (test code 102 mg/dL 70-110 = 2090643609) CREATININE (test 0.70 mg/dL 0.50-1.04 code = 7579272985) CALCIUM (test code 8.7 mg/dL 8.6-10.6 = 5526177306) eGFR (test code = mL/min/1.73m2 8130482772) KIM (test code = Association of KIM) [...] or urine or abnormalities in imaging tests). [facility] TexasHEPATIC FUNCTION PANEL (05823) (ALB,T.PRO,BILI T,BU/BC,ALT,AST,ALK PHOS)2021-09-06 10:30:13 Test Item Value Reference Range Interpretation Comments TOTAL BILI (test code = 0656479939) 1.3 mg/dL 0.1-1.1 H BILI UNCON (test code = 6868053140) 0.3 mg/dL 0.1-1.1 BILI CONJ (test code = 4228279522) 0.0 mg/dL 0.0-0.3 T PROTEIN (test code = 0916534885) 7.2 g/dL 6.3-8.2 ALBUMIN (test code = 3539179723) 3.9 g/dL 3.5-5.0 ALK PHOS (test code = 2930430806) 447 U/L 34-122 H ALTv (test code = 1742-6) 89 U/L 5-35 H AST(SGOT) (test code = 5533799624) 69 U/L 13-40 H Lab Interpretation (test code = Abnormal 01425-4) [facility]2022-05-25 10:30:13 Test Item Value Reference Range Interpretation Comments MAGNESIUM (test code = 2233806687) 1.6 mg/dL 1.7-2.4 L Lab Interpretation (test code = Abnormal 92755-1) [facility] TexasANTI-NUCLEAR ANTIBODY [id number] 01:05:07 Test Item Value Reference Range Interpretation Comments LESLY Titer by IFA >=1:1280 (test code = 6421202730) LESLY Pattern Speckled Cytoplasmic (test code = staining reacti ons 5762493973) observed. KIM (test code = Anti-nuclear KIM) [...] specimen will be held for 7 days. [facility] MUSCLE AB,IGG [id number] 21:57:55 Test Item Value Reference Range Interpretation Comments F-ACTIN (SMOOTH See_Comment If F-Actin (Smooth Muscle) MUSCLE) AB, Antibody, IgG i s negative, IGG(BEAKER) (test the Smooth Muscle Antibody code = 47487-6) titer by IFA is not performed.REFER ENCE [...] for A IH is strong.Performe d By: [facility] [address] [place], [place] [address]Nlwqsyozhl Director: Praveena Mantilla MD [Automated mess age] The system which ge nerated this result transmit gulshan reference range : 0 - 19 Units. The refe rence range was not used to interpret this result as normal/abnormal . [facility] TexasMITOCHONDRIAL M2 AB, [id number] 21:57:54 Test Item Value Reference Range Interpretation Comments AMA (test code = See_Comment H REFERENCE I NTERVAL: 50533-1) Mitochondrial ( M2) Antibody, IgG ? ?20.0 [...] does not rule out PBC.Perform ed By: [facility] [address] [address] [place], [place] [address]Jecifwulwi Director: Praveena Mantilla MD [Aut omated message] The sy stem which generated this result transmit gulshan reference range : 0.0 - 24.9 Units. The reference range was not used to int erpret this result as normal/abnormal . Lab Interpretation Abnormal (test code = 90503-1) [facility] TexasMAGN[facility]IUM2022-05-24 09:23:46 Test Item Value Reference Range Interpretation Comments MAGNESIUM (test code = 4515266538) 1.9 mg/dL 1.7-2.4 Lab Interpretation (test code = Normal 52132-1) [facility] MET[facility]OLIC [facility]EL (NA, K, CL, CO2, GLUCOSE, BUN, CREATININE, CA)2021-09-05 09:23:46 Test Item Value Reference Range Interpretation Comments NA (test code = 140 mmol/L 135-145 0203805809) K (test code = 4.5 mmol/L 3.5-5.0 5023260345) CL (test code = 106 mmol/L 98-108 2767952045) CO2 TOTAL (test code 27 mmol/L 23-31 = 4823875123) AGAP (test code = 2-16 3182989327) BUN (test code = 16 mg/dL 7-23 2029377754) GLUCOSE (test code = 89 mg/dL 70-110 2334972512) CREATININE (test code 0.67 mg/dL 0.50-1.04 = 4855840424) CALCIUM (test code = 9.0 mg/dL 8.6-10.6 5293753692) eGFR (test code = mL/min/1.73m2 2298719424) KIM (test code = KIM) Association of [...] or urine or abnormalities in imaging tests). [facility] TexasHEPATIC FUNCTION PANEL (22532) (ALB,T.PRO,BILI T,BU/BC,ALT,AST,ALK PHOS)2021-09-05 09:23:46 Test Item Value Reference Range Interpretation Comments TOTAL BILI (test code = 5413052310) 1.5 mg/dL 0.1-1.1 H BILI UNCON (test code = 1095502718) 0.3 mg/dL 0.1-1.1 BILI CONJ (test code = 7965247093) 0.0 mg/dL 0.0-0.3 T PROTEIN (test code = 5372002087) 7.1 g/dL 6.3-8.2 ALBUMIN (test code = 8266860764) 3.9 g/dL 3.5-5.0 ALK PHOS (test code = 3322958384) 558 U/L 34-122 H ALTv (test code = 1742-6) 112 U/L 5-35 H AST(SGOT) (test code = 8507369710) 82 U/L 13-40 H Lab Interpretation (test code = Abnormal 62362-4) [facility] TexasCBC WITH [id number] 09:09:07 Test Item Value Reference Range Interpretation [...] RDW-SD (test code = 45.7 fL 39.0-49.9 99348-9) RDW-CV (test code = 13.2 % 12.0-15.5 788-0) PLT (test code = See_Comment L [Automated 777-3) message] The sy stem which generated this result transmitted reference range : 166 - 358 10*3/ ?L. The reference r luca was not used to interpret this result as normal/abnormal . MPV (test code = 9.7 fL 9.5-12.9 40930-9) NRBC/100 WBC (test See_Comment [Automat ed code = 1337724188) message] The system which generated this result transmitted reference range : 0.0 - 10.0 /100 WBCs. The refer ence range was not u sed to interpret th is result as normal/abnormal . NRBC x10^3 (test code <0.01 See_Comment [Auto mated = 4199192193) message] The s ystem which generated this result transmitted reference range : 10*3/?L. The reference range was not used to interpret this result as normal/abnormal . GRAN MAT (NEUT) % 43.5 % (test code = 770-8) IMM GRAN % (test code 0.30 % = 2720275158) LYMPH % (test code = 39.6 % 736-9) MONO % (test code = 12.8 % 5905-5) EOS % (test code = 3.5 % 713-8) BASO % (test code = 0.3 % 706-2) GRAN MAT x10^3(ANC) 1.25 10*3/uL 1.88-7.09 L (test code = 2210833640) IMM GRAN x10^3 (test <0.03 0.00-0.06 code = 3717206735) LYMPH x10^3 (test code 1.14 10*3/uL 1.32-3.29 L = 731-0) MONO x10^3 (test code 0.37 10*3/uL 0.33-0.92 = 742-7) EOS x10^3 (test code = 0.10 10*3/uL 0.03-0.39 711-2) BASO x10^3 (test code <0.03 0.01-0.07 = 704-7) Lab Interpretation Abnormal (test code = 40306-6) [facility] TexasANTI-NUCLEAR ANTIBODY [id number] 22:01:12 Test Item Value Reference Range Interpretation Comments LESLY (test code = Cytoplasmic staining Negative A 9717114197) observed KIM (test code = KIM) Negative: [...] observed." Lab Interpretation (test Abnormal code = 48271-4) [facility] TexasCMV BY [id number] 17:58:08 Test Item Value Reference Range Interpretation Comments Specimen Tested Plasma (test code = 1365569980) CMV PCR - log <2.5 See_Comment [Automated IU/mL (test message] The code = 91439-8) system which generated this result transmitted reference range : <2.5 log IU/mL. The reference range was not used to interpr et this result as normal/abnormal . CMV PCR - IU/mL <300 See_Comment [Automated (test code = message] The 37336-0) system which generated this result transmitted reference range : <300 IU/mL. The reference range was not used to interpret this result as normal/abnormal . CMV PCR - log <2.7 See_Comment [Automated copies/mL (test message] The code = 32414-1) system which generated this result transmitted reference range : <2.7 log copies/mL. The reference range was not used to interpret this result as normal/abnormal . CMV PCR - <516 See_Comment [Automated copies/mL (test message] The code = 86402-9) system which generated this result transmitted reference [...] This is a laboratory-developed test using a maintainer operator labeled ASR (Analyte Specific Reagent) as the reagent providing the specificity of the assay. ?This test was developed and its performance characteristics determined by [facility] Clinical Microbiology Laboratory. It has not [...] to perform high complexity clinical laboratory testing. [facility] WITH [id number] 10:05:58 Test Item Value Reference Range Interpretation [...] RDW-SD (test code = 45.3 fL 39.0-49.9 80389-7) RDW-CV (test code = 13.1 % 12.0-15.5 788-0) PLT (test code = See_Comment L [Automated 777-3) message] The sy stem which generated this result transmitted reference range : 166 - 358 10*3/ ?L. The reference r luca was not used to interpret this result as normal/abnormal . MPV (test code = 9.8 fL 9.5-12.9 38658-5) NRBC/100 WBC (test See_Comment [Automat ed code = 1585240815) message] The system which generated this result transmitted reference range : 0.0 - 10.0 /100 WBCs. The refer ence range was not u sed to interpret th is result as normal/abnormal . NRBC x10^3 (test code <0.01 See_Comment [Auto mated = 5930794177) message] The s ystem which generated this result transmitted reference range : 10*3/?L. The reference range was not used to interpret this result as normal/abnormal . GRAN MAT (NEUT) % 46.2 % (test code = 770-8) IMM GRAN % (test code 0.30 % = 0842614722) LYMPH % (test code = 36.6 % 736-9) MONO % (test code = 14.2 % 5905-5) EOS % (test code = 2.4 % 713-8) BASO % (test code = 0.3 % 706-2) GRAN MAT x10^3(ANC) 1.36 10*3/uL 1.88-7.09 L (test code = 7253506920) IMM GRAN x10^3 (test <0.03 0.00-0.06 code = 2330219581) LYMPH x10^3 (test code 1.08 10*3/uL 1.32-3.29 L = 731-0) MONO x10^3 (test code 0.42 10*3/uL 0.33-0.92 = 742-7) EOS x10^3 (test code = 0.07 10*3/uL 0.03-0.39 711-2) BASO x10^3 (test code <0.03 0.01-0.07 = 704-7) Lab Interpretation Abnormal (test code = 27698-4) [facility] TexasMAG[facility]UM2022-05-23 09:55:52 Test Item Value Reference Range Interpretation Comments MAGNESIUM (test code = 1376809553) 2.0 mg/dL 1.7-2.4 Lab Interpretation (test code = Normal 73260-6) [facility]OLIC [facility]EL (NA, K, CL, CO2, GLUCOSE, BUN, CREATININE, CA)2021-09-04 09:55:52 Test Item Value Reference Range Interpretation Comments NA (test code = 140 mmol/L 135-145 4555728286) K (test code = 4.2 mmol/L 3.5-5.0 5094000535) CL (test code = 107 mmol/L 98-108 5608403168) CO2 TOTAL (test code 26 mmol/L 23-31 = 4367156631) AGAP (test code = 2-16 4239893388) BUN (test code = 20 mg/dL 7-23 5990010801) GLUCOSE (test code = 106 mg/dL 70-110 8551112036) CREATININE (test code 0.86 mg/dL 0.50-1.04 = 2902532526) CALCIUM (test code = 8.8 mg/dL 8.6-10.6 6144601840) eGFR (test code = mL/min/1.73m2 0146304040) KIM (test code = KIM) Association of [...] or urine or abnormalities in imaging tests). [facility] TexasHEPATIC FUNCTION PANEL (25208) (ALB,T.PRO,BILI T,BU/BC,ALT,AST,ALK PHOS)2021-09-04 09:55:52 Test Item Value Reference Range Interpretation Comments TOTAL BILI (test code = 4103018797) 1.8 mg/dL 0.1-1.1 H BILI UNCON (test code = 5393799949) 0.6 mg/dL 0.1-1.1 BILI CONJ (test code = 9542906127) 0.0 mg/dL 0.0-0.3 T PROTEIN (test code = 7630220028) 7.1 g/dL 6.3-8.2 ALBUMIN (test code = 7028260104) 3.9 g/dL 3.5-5.0 ALK PHOS (test code = 5698441406) 624 U/L 34-122 H ALTv (test code = 1742-6) 149 U/L 5-35 H AST(SGOT) (test code = 6140025464) 120 U/L 13-40 H Lab Interpretation (test code = Abnormal 95136-3) [facility] WITH [id number] 10:18:25 Test Item Value Reference Range Interpretation [...] RDW-SD (test code = 46.3 fL 39.0-49.9 94586-0) RDW-CV (test code = 13.5 % 12.0-15.5 788-0) PLT (test code = See_Comment L [Automated 777-3) message] The sy stem which generated this result transmitted reference range : 166 - 358 10*3/ ?L. The reference r luca was not used to interpret this result as normal/abnormal . MPV (test code = 9.5 fL 9.5-12.9 22038-7) NRBC/100 WBC (test See_Comment [Automat ed code = 7831881498) message] The system which generated this result transmitted reference range : 0.0 - 10.0 /100 WBCs. The refer ence range was not u sed to interpret th is result as normal/abnormal . NRBC x10^3 (test code <0.01 See_Comment [Auto mated = 4057547440) message] The s ystem which generated this result transmitted reference range : 10*3/?L. The reference range was not used to interpret this result as normal/abnormal . GRAN MAT (NEUT) % 49.9 % (test code = 770-8) IMM GRAN % (test code 0.00 % = 0606080813) LYMPH % (test code = 33.0 % 736-9) MONO % (test code = 14.2 % 5905-5) EOS % (test code = 2.6 % 713-8) BASO % (test code = 0.3 % 706-2) GRAN MAT x10^3(ANC) 1.51 10*3/uL 1.88-7.09 L (test code = 1678505740) IMM GRAN x10^3 (test <0.03 0.00-0.06 code = 4499598400) LYMPH x10^3 (test code 1.00 10*3/uL 1.32-3.29 L = 731-0) MONO x10^3 (test code 0.43 10*3/uL 0.33-0.92 = 742-7) EOS x10^3 (test code = 0.08 10*3/uL 0.03-0.39 711-2) BASO x10^3 (test code <0.03 0.01-0.07 = 704-7) Lab Interpretation Abnormal (test code = 99355-1) [facility]. METABOLIC PANEL (16590)2021-09-03 10:04:46 Test Item Value Reference Range Interpretation Comments NA (test code = 140 mmol/L 135-145 7574887199) K (test code = 4.5 mmol/L 3.5-5.0 8063256979) CL (test code = 107 mmol/L 98-108 6066724678) CO2 TOTAL (test code = 22 mmol/L 23-31 L 1174059140) AGAP (test code = 2-16 7102330512) BUN (test code = 20 mg/dL 7-23 7158213008) GLUCOSE (test code = 84 mg/dL 70-110 4248053866) CREATININE (test code = 0.92 mg/dL 0.50-1.04 4383516903) TOTAL BILI (test code = 2.2 mg/dL 0.1-1.1 H 3989767888) CALCIUM (test code = 8.9 mg/dL 8.6-10.6 0597854926) T PROTEIN (test code = 7.4 g/dL 6.3-8.2 7224417296) ALBUMIN (test code = 4.1 g/dL 3.5-5.0 8597892929) ALK PHOS (test code = 658 U/L 34-122 H 9002027157) ALTv (test code = 169 U/L 5-35 H 1742-6) AST(SGOT) (test code = 163 U/L 13-40 H 5989540264) eGFR (test code = mL/min/1.73m2 2200031008) KIM (test code = KIM) Association of [...] tests). Lab Interpretation Abnormal (test code = 73017-1) [facility]MAG[facility]UM2022-05-22 10:04:46 Test Item Value Reference Range Interpretation Comments MAGNESIUM (test code = 1620904263) 2.0 mg/dL 1.7-2.4 Lab Interpretation (test code = Normal 25677-5) [facility] TexasALPHA 1 [id number] 19:24:55 Test Item Value Reference Range Interpretation Comments Anti-Trypsin (test code = 174 mg/dL 83-199 2624547428) Lab Interpretation (test code = Normal 20180-7) [facility] TexasCERULOPLASMIN2022-05-21 19:24:50 Test Item Value Reference Range Interpretation Comments CERULO (test code = 6491020987) 48 mg/dL 25-63 Lab Interpretation (test code = Normal 18612-7) [facility] TexasIMMUNOGLOBULIN [id number] 19:24:45 Test Item Value Reference Range Interpretation Comments IgG (test code = 5855616597) 1210 mg/dL 636-1600 Lab Interpretation (test code = Normal 13114-3) [facility] TexasHAV ANTIBODY (IGG AND IGM)2021-09-02 18:39:52 Test Item Value Reference Range Interpretation Comments HAV Total (test code Positive = 6026642725) HAVT Semi-Quantitative (test code = 5820047443) KIM (test code = KIM) Indicates past or present infection with HAV or exposure to HAV due to vaccination. [facility] TexasFERRITIN [id number] 18:15:24 Test Item Value Reference Range Interpretation Comments FERRITIN (test code = 63.8 ng/mL 11.0-264.0 7744366384) KIM (test code = KIM) Biotin has been reported to cause a negative bias, interpret results relative to patient's use of biotin. Lab Interpretation (test Normal code = 43815-2) [facility] TexasHEPATITIS B SURFACE [id number] 18:11:43 Test Item Value Reference Range Interpretation Comments HBsAg Semi-Quantitative (test code = Negative Negative 5195-3) [facility] B SURFACE [id number] 17:43:23 Test Item Value Reference Range Interpretation Comments HBsAB (test code = Negative 8452909524) HBsAb mIU/mL Semi-Quantitative (test code = 8391605712) KIM (test code = Interpretation: KIM) ?Hepatitis B Surface Antibody ? Negative - Patient is considered to be not immune to infection with HBV. ? ? Positive - Anti-HBs detected at greater than or equal to 12 mIU/mL. ?Patient is considered to be immune to infection with HBV. ? [facility] TexasHBC ANTIBODY (IGM & IGG)2021-09-02 17:43:23 Test Item Value Reference Range Interpretation Comments HBC (test code = 2488601359) Negative HBC Semi-Quantitative (test code = 6373193330) [facility] TexasHCV [id number] 17:43:23 Test Item Value Reference Range Interpretation Comments HCV Ab (test code = 87522-1) Negative HCV Semi-Quantitative (test code = 54424-4) [facility]MAG[facility]UM2022-05-21 17:40:42 Test Item Value Reference Range Interpretation Comments MAGNESIUM (test code = 3716968644) 1.9 mg/dL 1.7-2.4 Lab Interpretation (test code = Normal 67358-2) [facility]2022-[facility]-21 17:40:42 Test Item Value Reference Range Interpretation Comments PHOSPHORUS (test code = 4130591433) 4.0 mg/dL 2.5-5.0 Lab Interpretation (test code = Normal 01763-0) [facility] METABOLIC PANEL (02763)2021-09-02 17:40:42 Test Item Value Reference Range Interpretation Comments NA (test code = 138 mmol/L 135-145 0483741621) K (test code = 4.2 mmol/L 3.5-5.0 7610978210) CL (test code = 106 mmol/L 98-108 4241607072) CO2 TOTAL (test code = 24 mmol/L 23-31 3142568426) AGAP (test code = 2-16 9105233053) BUN (test code = 14 mg/dL 7-23 9542590215) GLUCOSE (test code = 88 mg/dL 70-110 0273442110) CREATININE (test code = 0.60 mg/dL 0.50-1.04 6313181979) TOTAL BILI (test code = 2.1 mg/dL 0.1-1.1 H 1481344911) CALCIUM (test code = 8.8 mg/dL 8.6-10.6 9539121986) T PROTEIN (test code = 7.3 g/dL 6.3-8.2 9999823593) ALBUMIN (test code = 4.0 g/dL 3.5-5.0 7069927205) ALK PHOS (test code = 659 U/L 34-122 H 0271003738) ALTv (test code = 183 U/L 5-35 H 1742-6) AST(SGOT) (test code = 167 U/L 13-40 H 1205566405) eGFR (test code = mL/min/1.73m2 7994200538) KIM (test code = KIM) [employer] of [...] tests). Lab Interpretation Abnormal (test code = 97584-0) [facility] TexasACETAMINOPHEN2022-05-21 16:56:49 Test Item Value Reference Range Interpretation Comments ACETAMINOP (test code = <10.0 10.0-30.0 L 8054943220) KIM (test code = KIM) Toxic: Greater than 200 ug/mL @ 4 hour post ingestion or greater than 50 ug/mL @ 12 hour post ingestion Lab Interpretation (test Abnormal code = 62530-8) [facility] TexasCBC WITH [id number] 16:41:43 Test Item Value Reference Range Interpretation [...] RDW-SD (test code = 47.5 fL 39.0-49.9 56857-1) RDW-CV (test code = 13.9 % 12.0-15.5 788-0) PLT (test code = See_Comment L [Automated 777-3) message] The sy stem which generated this result transmitted reference range : 166 - 358 10*3/ ?L. The reference r luca was not used to interpret this result as normal/abnormal . MPV (test code = 9.9 fL 9.5-12.9 28748-4) NRBC/100 WBC (test See_Comment [Automat ed code = 4221376178) message] The system which generated this result transmitted reference range : 0.0 - 10.0 /100 WBCs. The refer ence range was not u sed to interpret th is result as normal/abnormal . NRBC x10^3 (test code <0.01 See_Comment [Auto mated = 2882294940) message] The s ystem which generated this result transmitted reference range : 10*3/?L. The reference range was not used to interpret this result as normal/abnormal . GRAN MAT (NEUT) % 47.4 % (test code = 770-8) IMM GRAN % (test code 0.30 % = 0881266893) LYMPH % (test code = 37.4 % 736-9) MONO % (test code = 12.1 % 5905-5) EOS % (test code = 2.5 % 713-8) BASO % (test code = 0.3 % 706-2) GRAN MAT x10^3(ANC) 1.52 10*3/uL 1.88-7.09 L (test code = 7120494309) IMM GRAN x10^3 (test <0.03 0.00-0.06 code = 9769130948) LYMPH x10^3 (test code 1.20 10*3/uL 1.32-3.29 L = 731-0) MONO x10^3 (test code 0.39 10*3/uL 0.33-0.92 = 742-7) EOS x10^3 (test code = 0.08 10*3/uL 0.03-0.39 711-2) BASO x10^3 (test code <0.03 0.01-0.07 = 704-7) Lab Interpretation Abnormal (test code = 36220-4) [facility] TexasProthrombin Time (PTT) / [id number] 15:58:16 Test Item Value Reference Range Interpretation [...] tions. Lab Interpretation (test Normal code = 53363-6) [facility] TexasTROPONIN [id number] 19:18:37 Test Item Value Reference Interpretation Comments Range TROPONIN I (test 0.004 ng/mL See_Comment [Automated code = 7646456228) message] The system which generated this result [...] biotin. Lab Interpretation Normal (test code = 79455-9) [facility] TexasCOM. METABOLIC PANEL ([id number])2021-09-01 19:07:17 Test Item Value Reference Range Interpretation Comments NA (test code = 139 mmol/L 135-145 3275001942) K (test code = 4.5 mmol/L 3.5-5.0 2641533663) CL (test code = 104 mmol/L 98-108 8431326218) CO2 TOTAL (test code = 21 mmol/L 23-31 L 4547366564) AGAP (test code = 2-16 1970901884) BUN (test code = 17 mg/dL 7-23 2827226669) GLUCOSE (test code = 90 mg/dL 70-110 4363566875) CREATININE (test code = 0.63 mg/dL 0.50-1.04 9501986864) TOTAL BILI (test code = 1.6 mg/dL 0.1-1.1 H 5673011558) CALCIUM (test code = 9.5 mg/dL 8.6-10.6 9966213563) T PROTEIN (test code = 9.0 g/dL 6.3-8.2 H 9650318048) ALBUMIN (test code = 4.9 g/dL 3.5-5.0 1077504990) ALK PHOS (test code = 820 U/L 34-122 H 1772905483) ALTv (test code = 238 U/L 5-35 H 1742-6) AST(SGOT) (test code = 256 U/L 13-40 H 6272820831) eGFR (test code = mL/min/1.73m2 5768189681) KIM (test code = KIM) Association of [...] tests). Lab Interpretation Abnormal (test code = 71123-1) [facility] TexasMAGNESIUM2022-05-20 19:07:17 Test Item Value Reference Range Interpretation Comments MAGNESIUM (test code = 6345551901) 1.8 mg/dL 1.7-2.4 Lab Interpretation (test code = Normal 68528-9) [facility] TexasLIPASE2022-05-20 19:06:57 Test Item Value Reference Range Interpretation Comments LIPASE (test code = 5621528749) 85 U/L 0-220 Lab Interpretation (test code = Normal 04772-0) [facility] TexasCB WITH [id number] 18:56:38 Test Item Value Reference Range Interpretation Comments WBC (test code = See_Comment [Automated 8290-2) message] The sy stem which generated this result transmitted reference range : 4.30 - 11.10 10*3/?L. The reference range was not used to interpret this result as normal/abnormal . RBC (test code = See_Comment [Automated 800-8) message] The sy stem which generated this [...] RDW-SD (test code = 48.2 fL 39.0-49.9 08560-5) RDW-CV (test code = 14.1 % 12.0-15.5 788-0) PLT (test code = See_Comment [Automated 317-3) message] The sy stem which generated this result transmitted reference range : 166 - 358 10*3/ ?L. The reference r luca was not used to interpret this result as normal/abnormal . MPV (test code = 9.9 fL 9.5-12.9 97400-0) NRBC/100 WBC (test See_Comment [Automat ed code = 5122171040) message] The system which generated this result transmitted reference range : 0.0 - 10.0 /100 WBCs. The refer ence range was not u sed to interpret th is result as normal/abnormal . NRBC x10^3 (test code <0.01 See_Comment [Auto mated = 2738560104) message] The s ystem which generated this result transmitted reference range : 10*3/?L. The reference range was not used to interpret this result as normal/abnormal . GRAN MAT (NEUT) % 65.1 % (test code = 770-8) IMM GRAN % (test code 0.40 % = 5742115632) LYMPH % (test code = 21.5 % 736-9) MONO % (test code = 11.0 % 5905-5) EOS % (test code = 1.6 % 713-8) BASO % (test code = 0.4 % 706-2) GRAN MAT x10^3(ANC) 3.33 10*3/uL 1.88-7.09 (test code = 0961353560) IMM GRAN x10^3 (test <0.03 0.00-0.06 code = 6660435365) LYMPH x10^3 (test code 1.10 10*3/uL 1.32-3.29 L = 731-0) MONO x10^3 (test code 0.56 10*3/uL 0.33-0.92 = 742-7) EOS x10^3 (test code = 0.08 10*3/uL 0.03-0.39 711-2) BASO x10^3 (test code <0.03 0.01-0.07 = 704-7) Lab Interpretation Abnormal (test code = 81167-5) [facility] [id number] 16:53:34 Test Item Value Reference Interpretation Comments Range TROPONIN I (test 0.003 ng/mL See_Comment [Automated code = 1918853792) message] The system which generated this result [...] biotin. Lab Interpretation Normal (test code = 68865-4) [facility]. METABOLIC PANEL ([id number])2021-08-27 16:42:16 Test Item Value Reference Range Interpretation Comments NA (test code = 139 mmol/L 135-145 8864626066) K (test code = 4.2 mmol/L 3.5-5.0 1132973133) CL (test code = 104 mmol/L 98-108 5971799347) CO2 TOTAL (test code = 23 mmol/L 23-31 1681150871) AGAP (test code = 2-16 2131837189) BUN (test code = 12 mg/dL 7-23 7888241806) GLUCOSE (test code = 91 mg/dL 70-110 2657326185) CREATININE (test code = 0.52 mg/dL 0.50-1.04 4652116837) TOTAL BILI (test code = 1.2 mg/dL 0.1-1.1 H 4481424801) CALCIUM (test code = 9.1 mg/dL 8.6-10.6 1028696759) T PROTEIN (test code = 7.7 g/dL 6.3-8.2 8812492895) ALBUMIN (test code = 4.3 g/dL 3.5-5.0 4988130253) ALK PHOS (test code = 530 U/L 34-122 H 5541918265) ALTv (test code = 84 U/L 5-35 H 1742-6) AST(SGOT) (test code = 93 U/L 13-40 H 4048094206) eGFR (test code = mL/min/1.73m2 9444658578) KIM (test code = KIM) Association of [...] tests). Lab Interpretation Abnormal (test code = 22995-6) [facility] TexasLIPASE2022-05-15 16:41:56 Test Item Value Reference Range Interpretation Comments LIPASE (test code = 3684095037) 67 U/L 0-220 Lab Interpretation (test code = Normal 70935-4) [facility] WITH [id number] 16:30:44 Test Item Value Reference Range Interpretation Comments WBC (test code = See_Comment [Automated 9390-2) message] The sy stem which generated this result transmitted reference range : 4.30 - 11.10 10*3/?L. The reference range was not used to interpret this result as normal/abnormal . RBC (test code = See_Comment L [Automated 579-8) message] The sy stem which generated this [...] RDW-SD (test code = 49.4 fL 39.0-49.9 41534-7) RDW-CV (test code = 14.4 % 12.0-15.5 788-0) PLT (test code = See_Comment L [Automated 777-3) message] The sy stem which generated this result transmitted reference range : 166 - 358 10*3/ ?L. The reference r luca was not used to interpret this result as normal/abnormal . MPV (test code = 10.1 fL 9.5-12.9 13505-4) IPF % (test code = 2.6 % 1.3-7.7 Platelet count 6523507186) measured by fluorescence method. NRBC/100 WBC (test See_Comment [Automat ed code = 7285758798) message] The system which generated this result transmitted reference range : 0.0 - 10.0 /100 WBCs. The refer ence range was not u sed to interpret th is result as normal/abnormal . NRBC x10^3 (test code <0.01 See_Comment [Auto mated = 8036196533) message] The s ystem which generated this result transmitted reference range : 10*3/?L. The reference range was not used to interpret this result as normal/abnormal . GRAN MAT (NEUT) % 70.3 % (test code = 770-8) IMM GRAN % (test code 0.20 % = 0277046922) LYMPH % (test code = 21.3 % 736-9) MONO % (test code = 6.9 % 5905-5) EOS % (test code = 1.1 % 713-8) BASO % (test code = 0.2 % 706-2) GRAN MAT x10^3(ANC) 3.14 10*3/uL 1.88-7.09 (test code = 9502421647) IMM GRAN x10^3 (test <0.03 0.00-0.06 code = 9959620689) LYMPH x10^3 (test code 0.95 10*3/uL 1.32-3.29 L = 731-0) MONO x10^3 (test code 0.31 10*3/uL 0.33-0.92 L = 742-7) EOS x10^3 (test code = 0.05 10*3/uL 0.03-0.39 711-2) BASO x10^3 (test code <0.03 0.01-0.07 = 704-7) Lab Interpretation Abnormal (test code = 86336-9) [facility] GLUCOSE (AUTOMATED)2021-07-28 22:32:51 Test Item Value Reference Range Interpretation Comments POCT GLU (test code = 2729351786) 94 mg/dL 70-110 Lab Interpretation (test code = Normal 08753-0) [facility] GLUCOSE (AUTOMATED)2021-07-28 16:56:05 Test Item Value Reference Range Interpretation Comments POCT GLU (test code = 8212527026) 107 mg/dL 70-110 Lab Interpretation (test code = Normal 81927-9) [facility] GLUCOSE (AUTOMATED)2021-07-28 13:01:41 Test Item Value Reference Range Interpretation Comments POCT GLU (test code = 7523811950) 104 mg/dL 70-110 Lab Interpretation (test code = Normal 58204-6) [facility]. METABOLIC PANEL (94911)2021-07-28 11:55:38 Test Item Value Reference Range Interpretation Comments NA (test code = 140 mmol/L 135-145 2722931582) K (test code = 3.6 mmol/L 3.5-5.0 7592860247) CL (test code = 108 mmol/L 98-108 9996386105) CO2 TOTAL (test code = 27 mmol/L 23-31 1913212589) AGAP (test code = 2-16 1546883687) BUN (test code = 3 mg/dL 7-23 L 6896227906) GLUCOSE (test code = 93 mg/dL 70-110 8067767400) CREATININE (test code = 0.49 mg/dL 0.50-1.04 L 0781235702) TOTAL BILI (test code = 1.0 mg/dL 0.1-1.8 7971741448) CALCIUM (test code = 8.3 mg/dL 8.6-10.6 L 6749936360) T PROTEIN (test code = 6.5 g/dL 6.3-8.2 8151350929) ALBUMIN (test code = 3.6 g/dL 3.5-5.0 0862016100) ALK PHOS (test code = 431 U/L 34-122 H 5588203431) ALTv (test code = 80 U/L 5-35 H 1742-6) AST(SGOT) (test code = 74 U/L 13-40 H 0067953893) eGFR (test code = mL/min/1.73m2 1393762466) KIM (test code = KIM) Association of [...] tests). Lab Interpretation Abnormal (test code = 67262-2) [facility] 11:55:38 Test Item Value Reference Range Interpretation Comments LIPASE (test code = 7060649044) 74 U/L 0-220 Lab Interpretation (test code = Normal 21780-4) [facility] WITH [id number] 10:40:07 Test Item Value Reference Range Interpretation [...] RDW-SD (test code = 49.7 fL 39.0-49.9 68778-6) RDW-CV (test code = 14.3 % 12.0-15.5 788-0) PLT (test code = See_Comment L [Automated 777-3) message] The sy stem which generated this result transmitted reference range : 166 - 358 10*3/ ?L. The reference r luca was not used to interpret this result as normal/abnormal . MPV (test code = 9.3 fL 9.5-12.9 L 31362-8) NRBC/100 WBC (test See_Comment [Automat ed code = 3860992838) message] The system which generated this result transmitted reference range : 0.0 - 10.0 /100 WBCs. The refer ence range was not u sed to interpret th is result as normal/abnormal . NRBC x10^3 (test code <0.01 See_Comment [Auto mated = 4785867600) message] The s ystem which generated this result transmitted reference range : 10*3/?L. The reference range was not used to interpret this result as normal/abnormal . GRAN MAT (NEUT) % 49.4 % (test code = 770-8) IMM GRAN % (test code 0.00 % = 4577624628) LYMPH % (test code = 38.0 % 736-9) MONO % (test code = 10.0 % 5905-5) EOS % (test code = 2.2 % 713-8) BASO % (test code = 0.4 % 706-2) GRAN MAT x10^3(ANC) 1.34 10*3/uL 1.88-7.09 L (test code = 8178076944) IMM GRAN x10^3 (test <0.03 0.00-0.06 code = 1789166380) LYMPH x10^3 (test code 1.03 10*3/uL 1.32-3.29 L = 731-0) MONO x10^3 (test code 0.27 10*3/uL 0.33-0.92 L = 742-7) EOS x10^3 (test code = 0.06 10*3/uL 0.03-0.39 711-2) BASO x10^3 (test code <0.03 0.01-0.07 = 704-7) Lab Interpretation Abnormal (test code = 96601-7) [facility] GLUCOSE (AUTOMATED)2021-07-28 09:10:56 Test Item Value Reference Range Interpretation Comments POCT GLU (test code = 7298927411) 80 mg/dL 70-110 Lab Interpretation (test code = Normal 80855-2) [facility] GLUCOSE (AUTOMATED)2021-07-28 04:43:28 Test Item Value Reference Range Interpretation Comments POCT GLU (test code = 6775591190) 115 mg/dL 70-110 H Lab Interpretation (test code = Abnormal 37139-1) [facility] GLUCOSE (AUTOMATED)2021-07-28 01:22:31 Test Item Value Reference Range Interpretation Comments POCT GLU (test code = 8226974551) 94 mg/dL 70-110 Lab Interpretation (test code = Normal 50074-3) [facility] GLUCOSE (AUTOMATED)2021-07-27 21:50:22 Test Item Value Reference Range Interpretation Comments POCT GLU (test code = 4278358786) 108 mg/dL 70-110 Lab Interpretation (test code = Normal 02388-2) [facility] GLUCOSE (AUTOMATED)2021-07-27 17:02:26 Test Item Value Reference Range Interpretation Comments POCT GLU (test code = 5071084350) 102 mg/dL 70-110 Lab Interpretation (test code = Normal 01777-8) [facility] GLUCOSE (AUTOMATED)2021-07-27 12:47:28 Test Item Value Reference Range Interpretation Comments POCT GLU (test code = 6419174261) 106 mg/dL 70-110 Lab Interpretation (test code = Normal 39186-8) [facility] WITH [id number] 12:34:02 Test Item Value Reference Range Interpretation [...] RDW-SD (test code = 47.6 fL 39.0-49.9 45230-4) RDW-CV (test code = 14.0 % 12.0-15.5 788-0) PLT (test code = See_Comment L [Automated 777-3) message] The sy stem which generated this result transmitted reference range : 166 - 358 10*3/ ?L. The reference r luca was not used to interpret this result as normal/abnormal . MPV (test code = 9.5 fL 9.5-12.9 80973-1) NRBC/100 WBC (test See_Comment [Automat ed code = 6941554902) message] The system which generated this result transmitted reference range : 0.0 - 10.0 /100 WBCs. The refer ence range was not u sed to interpret th is result as normal/abnormal . NRBC x10^3 (test code <0.01 See_Comment [Auto mated = 6415457998) message] The s ystem which generated this result transmitted reference range : 10*3/?L. The reference range was not used to interpret this result as normal/abnormal . GRAN MAT (NEUT) % 56.3 % (test code = 770-8) IMM GRAN % (test code 0.80 % = 7085477692) LYMPH % (test code = 33.5 % 736-9) MONO % (test code = 8.6 % 5905-5) EOS % (test code = 0.4 % 713-8) BASO % (test code = 0.4 % 706-2) GRAN MAT x10^3(ANC) 1.50 10*3/uL 1.88-7.09 L (test code = 1813704729) IMM GRAN x10^3 (test <0.03 0.00-0.06 code = 2213831174) LYMPH x10^3 (test code 0.89 10*3/uL 1.32-3.29 L = 731-0) MONO x10^3 (test code 0.23 10*3/uL 0.33-0.92 L = 742-7) EOS x10^3 (test code = <0.03 0.03-0.39 L 711-2) BASO x10^3 (test code <0.03 0.01-0.07 = 704-7) Lab Interpretation Abnormal (test code = 76598-9) [facility]MAG[facility]UM2022-04-14 11:06:32 Test Item Value Reference Range Interpretation Comments MAGNESIUM (test code = 1097080173) 2.0 mg/dL 1.7-2.4 Lab Interpretation (test code = Normal 70204-5) [facility] (NA, K, CL, CO2, GLUCOSE, BUN, CREATININE, CA)2021-07-27 11:06:32 Test Item Value Reference Range Interpretation Comments NA (test code = 141 mmol/L 135-145 2095717587) K (test code = 3.8 mmol/L 3.5-5.0 8049350143) CL (test code = 107 mmol/L 98-108 2873318872) CO2 TOTAL (test code = 25 mmol/L 23-31 9960604671) AGAP (test code = 2-16 4502861930) BUN (test code = 6 mg/dL 7-23 L 9903930819) GLUCOSE (test code = 100 mg/dL 70-110 5264114158) CREATININE (test code = 0.46 mg/dL 0.50-1.04 L 3693616323) CALCIUM (test code = 8.6 mg/dL 8.6-10.6 6207150775) eGFR (test code = mL/min/1.73m2 0244235388) KIM (test code = KIM) Association of [...] tests). Lab Interpretation Abnormal (test code = 14778-9) [facility] GLUCOSE (AUTOMATED)2021-07-27 08:58:50 Test Item Value Reference Range Interpretation Comments POCT GLU (test code = 9730113802) 95 mg/dL 70-110 Lab Interpretation (test code = Normal 03678-7) [facility] GLUCOSE (AUTOMATED)2021-07-27 06:51:37 Test Item Value Reference Range Interpretation Comments POCT GLU (test code = 5306948713) 146 mg/dL 70-110 H Lab Interpretation (test code = Abnormal 70064-0) [facility] GLUCOSE (AUTOMATED)2021-07-27 01:52:10 Test Item Value Reference Range Interpretation Comments POCT GLU (test code = 3936829260) 111 mg/dL 70-110 H Lab Interpretation (test code = Abnormal 17831-2) [facility]2022-[facility]-13 22:12:47 Test Item Value Reference Range Interpretation Comments MAGNESIUM (test code = 6695725609) 1.5 mg/dL 1.7-2.4 L Lab Interpretation (test code = Abnormal 38887-7) [facility] GLUCOSE (AUTOMATED)2021-07-26 22:04:12 Test Item Value Reference Range Interpretation Comments POCT GLU (test code = 6521906260) 106 mg/dL 70-110 Lab Interpretation (test code = Normal 50965-0) [facility] GLUCOSE (AUTOMATED)2021-07-26 16:59:07 Test Item Value Reference Range Interpretation Comments POCT GLU (test code = 4544770874) 80 mg/dL 70-110 Lab Interpretation (test code = Normal 31764-8) [facility] (NA, K, CL, CO2, GLUCOSE, BUN, CREATININE, CA)2021-07-26 12:05:38 Test Item Value Reference Range Interpretation Comments NA (test code = 137 mmol/L 135-145 9207301118) K (test code = 3.9 mmol/L 3.5-5.0 5201719977) CL (test code = 104 mmol/L 98-108 6661903805) CO2 TOTAL (test code = 25 mmol/L 23-31 5138199366) AGAP (test code = 2-16 0743184292) BUN (test code = 8 mg/dL 7-23 8709124765) GLUCOSE (test code = 100 mg/dL 70-110 3725580308) CREATININE (test code = 0.45 mg/dL 0.50-1.04 L 1315850425) CALCIUM (test code = 8.7 mg/dL 8.6-10.6 3857542676) eGFR (test code = mL/min/1.73m2 8534245177) KIM (test code = KIM) Association of [...] tests). Lab Interpretation Abnormal (test code = 01301-2) [facility]13 12:04:57 Test Item Value Reference Range Interpretation Comments LIPASE (test code = 9256394827) 58 U/L 0-220 Lab Interpretation (test code = Normal 91423-2) [facility] WITH [id number] 10:22:45 Test Item Value Reference Range Interpretation [...] RDW-SD (test code = 45.4 fL 39.0-49.9 85524-9) RDW-CV (test code = 13.7 % 12.0-15.5 788-0) PLT (test code = See_Comment L [Automated 777-3) message] The sy stem which generated this result transmitted reference range : 166 - 358 10*3/ ?L. The reference r luca was not used to interpret this result as normal/abnormal . MPV (test code = 9.4 fL 9.5-12.9 L 52583-9) NRBC/100 WBC (test See_Comment [Automat ed code = 8860742039) message] The system which generated this result transmitted reference range : 0.0 - 10.0 /100 WBCs. The refer ence range was not u sed to interpret th is result as normal/abnormal . NRBC x10^3 (test code <0.01 See_Comment [Auto mated = 2181106384) message] The s ystem which generated this result transmitted reference range : 10*3/?L. The reference range was not used to interpret this result as normal/abnormal . GRAN MAT (NEUT) % 67.8 % (test code = 770-8) IMM GRAN % (test code 0.60 % = 3783702275) LYMPH % (test code = 24.4 % 736-9) MONO % (test code = 6.6 % 5905-5) EOS % (test code = 0.3 % 713-8) BASO % (test code = 0.3 % 706-2) GRAN MAT x10^3(ANC) 2.25 10*3/uL 1.88-7.09 (test code = 1808215531) IMM GRAN x10^3 (test <0.03 0.00-0.06 code = 6968893338) LYMPH x10^3 (test code 0.81 10*3/uL 1.32-3.29 L = 731-0) MONO x10^3 (test code 0.22 10*3/uL 0.33-0.92 L = 742-7) EOS x10^3 (test code = <0.03 0.03-0.39 L 711-2) BASO x10^3 (test code <0.03 0.01-0.07 = 704-7) Lab Interpretation Abnormal (test code = 74839-8) [facility] [place] (81274) (ALB,T.PRO,BILI T,BU/BC,ALT,AST,ALK PHOS)2021-07-25 16:47:05 Test Item Value Reference Range Interpretation Comments TOTAL BILI (test code = 9810574059) 1.1 mg/dL 0.1-1.1 BILI UNCON (test code = 8448503603) 0.4 mg/dL 0.1-1.1 BILI CONJ (test code = 9369043842) 0.0 mg/dL 0.0-0.3 T PROTEIN (test code = 3025051600) 4.0 g/dL 6.3-8.2 L ALBUMIN (test code = 9710453829) 1.9 g/dL 3.5-5.0 L ALK PHOS (test code = 6471846421) 229 U/L 34-122 H ALTv (test code = 1742-6) 59 U/L 5-35 H AST(SGOT) (test code = 8683599909) 68 U/L 13-40 H Lab Interpretation (test code = Abnormal 25778-4) [facility]2021-07-25 14:21:54 Test Item Value Reference Range Interpretation Comments POCT GLU (test code = 7775926724) 113 mg/dL 70-110 H Lab Interpretation (test code = Abnormal 13926-4) [facility] METABOLIC PANEL (NA, K, CL, CO2, GLUCOSE, BUN, CREATININE, CA)2021-07-25 14:06:58 Test Item Value Reference Range Interpretation Comments NA (test code = 132 mmol/L 135-145 L 1486182079) K (test code = 4.1 mmol/L 3.5-5.0 1722739433) CL (test code = 110 mmol/L 98-108 H 0111024814) CO2 TOTAL (test code = 13 mmol/L 23-31 L 6458749535) AGAP (test code = 2-16 7575540716) BUN (test code = 4 mg/dL 7-23 L 7048033547) GLUCOSE (test code = 48 mg/dL 70-110 LL 5968038533) CREATININE (test code = 0.21 mg/dL 0.50-1.04 L 2959158807) CALCIUM (test code = 6.4 mg/dL 8.6-10.6 L 6219614665) eGFR (test code = mL/min/1.73m2 3418232129) KIM (test code = KIM) Association of [...] tests). Lab Interpretation Abnormal (test code = 41699-8) [facility] WITH [id number] 14:04:42 Test Item Value Reference Range Interpretation Comments WBC (test code = See_Comment L [Automated 9690-2) message] The sy stem which [...] RDW-SD (test code = 46.7 fL 39.0-49.9 16142-9) RDW-CV (test code = 13.6 % 12.0-15.5 788-0) PLT (test code = See_Comment L [Automated 777-3) message] The sy stem which generated this result transmitted reference range : 166 - 358 10*3/ ?L. The reference r luca was not used to interpret this result as normal/abnormal . MPV (test code = 10.8 fL 9.5-12.9 76516-3) NRBC/100 WBC (test See_Comment [Automat ed code = [id number]) message] The system which generated this result transmitted reference range : 0.0 - 10.0 /100 WBCs. The refer ence range was not u sed to interpret th is result as normal/abnormal . NRBC x10^3 (test code <0.01 See_Comment [Auto mated = [id number]) message] The s ystem which generated this result transmitted reference range : 10*3/?L. The reference range was not used to interpret this result as normal/abnormal . GRAN MAT (NEUT) % 53.2 % (test code = 770-8) IMM GRAN % (test code 0.40 % = [id number]) LYMPH % (test code = 34.3 % 736-9) MONO % (test code = 10.0 % 5905-5) EOS % (test code = 1.7 % 713-8) BASO % (test code = 0.4 % 706-2) GRAN MAT x10^3(ANC) 1.27 10*3/uL 1.88-7.09 L (test code = [id number]) IMM GRAN x10^3 (test <0.03 0.00-0.06 code = [id number]) LYMPH x10^3 (test code 0.82 10*3/uL 1.32-3.29 L = 731-0) MONO x10^3 (test code 0.24 10*3/uL 0.33-0.92 L = 742-7) EOS x10^3 (test code = 0.04 10*3/uL 0.03-0.39 711-2) BASO x10^3 (test code <0.03 0.01-0.07 = 704-7) Lab Interpretation Abnormal (test code = 83759-4) [facility] TexasMagnesium [id number] 11:34:51 Test Item Value Reference Range Interpretation Comments MAGNESIUM (test code = 2931896625) 1.6 mg/dL 1.7-2.4 L Lab Interpretation (test code = Abnormal 90825-4) [facility] Metabolic Panel (NA, K, CL, CO2, GLUCOSE, BUN, CREATININE, CA)2021-07-24 11:34:31 Test Item Value Reference Range Interpretation Comments NA (test code = 137 mmol/L 135-145 8322259386) K (test code = 4.4 mmol/L 3.5-5.0 8338678454) CL (test code = 106 mmol/L 98-108 9910883606) CO2 TOTAL (test code 23 mmol/L 23-31 = 5723839284) AGAP (test code = 2-16 5347799070) BUN (test code = 14 mg/dL 7-23 8203998646) GLUCOSE (test code = 84 mg/dL 70-110 7204312681) CREATININE (test code 0.54 mg/dL 0.50-1.04 = 0790504028) CALCIUM (test code = 8.7 mg/dL 8.6-10.6 0334989085) eGFR (test code = mL/min/1.73m2 6929015348) KIM (test code = KIM) Association of [...] or urine or abnormalities in imaging tests). [facility] TexasHEPAT[facility] FUN[facility] PAN[facility] (65132) (ALB,T.PRO,BILI T,BU/BC,ALT,AST,ALK PHOS)2021-07-24 11:34:31 Test Item Value Reference Range Interpretation Comments TOTAL BILI (test code = 9041350162) 1.9 mg/dL 0.1-1.1 H BILI UNCON (test code = 4076838196) 0.8 mg/dL 0.1-1.1 BILI CONJ (test code = 8930056205) 0.0 mg/dL 0.0-0.3 T PROTEIN (test code = 7644900209) 8.0 g/dL 6.3-8.2 ALBUMIN (test code = 0009238101) 4.3 g/dL 3.5-5.0 ALK PHOS (test code = 2267043161) 512 U/L 34-122 H ALTv (test code = 1742-6) 111 U/L 5-35 H AST(SGOT) (test code = 2373065336) 107 U/L 13-40 H Lab Interpretation (test code = Abnormal 36541-3) [facility] TexasCB with [id number] 10:17:09 Test Item Value Reference Range Interpretation [...] RDW-SD (test code = 47.5 fL 39.0-49.9 05161-0) RDW-CV (test code = 13.9 % 12.0-15.5 788-0) PLT (test code = See_Comment L [Automated 777-3) message] The sy stem which generated this result transmitted reference range : 166 - 358 10*3/ ?L. The reference r luca was not used to interpret this result as normal/abnormal . MPV (test code = 11.2 fL 9.5-12.9 02726-0) NRBC/100 WBC (test See_Comment [Automat ed code = 8155366798) message] The system which generated this result transmitted reference range : 0.0 - 10.0 /100 WBCs. The refer ence range was not u sed to interpret th is result as normal/abnormal . NRBC x10^3 (test code <0.01 See_Comment [Auto mated = 0794150389) message] The s ystem which generated this result transmitted reference range : 10*3/?L. The reference range was not used to interpret this result as normal/abnormal . GRAN MAT (NEUT) % 49.4 % (test code = 770-8) IMM GRAN % (test code 0.30 % = 6592849690) LYMPH % (test code = 39.2 % 736-9) MONO % (test code = 8.5 % 5905-5) EOS % (test code = 2.3 % 713-8) BASO % (test code = 0.3 % 706-2) GRAN MAT x10^3(ANC) 1.69 10*3/uL 1.88-7.09 L (test code = 4242770750) IMM GRAN x10^3 (test <0.03 0.00-0.06 code = 0755947355) LYMPH x10^3 (test code 1.34 10*3/uL 1.32-3.29 = 731-0) MONO x10^3 (test code 0.29 10*3/uL 0.33-0.92 L = 742-7) EOS x10^3 (test code = 0.08 10*3/uL 0.03-0.39 711-2) BASO x10^3 (test code <0.03 0.01-0.07 = 704-7) Lab Interpretation Abnormal (test code = 67589-2) [facility] TexasPhosphorus [id number] 01:21:52 Test Item Value Reference Range Interpretation Comments PHOSPHORUS (test code = 2073723878) 3.9 mg/dL 2.5-5.0 Lab Interpretation (test code = Normal 81195-9) [facility] TexasTROPONIN [id number] 22:06:24 Test Item Value Reference Interpretation Comments Range TROPONIN I (test 0.006 ng/mL See_Comment [Automated code = 1210501688) message] The system which generated this result [...] biotin. Lab Interpretation Normal (test code = 93231-0) [facility] TexasMAGNESIUM2022-04-10 21:55:26 Test Item Value Reference Range Interpretation Comments MAGNESIUM (test code = 6499659251) 1.6 mg/dL 1.7-2.4 L Lab Interpretation (test code = Abnormal 20254-2) [facility]. METABOLIC PANEL (00776)2021-07-23 21:55:06 Test Item Value Reference Range Interpretation Comments NA (test code = 139 mmol/L 135-145 8530797561) K (test code = 4.3 mmol/L 3.5-5.0 0849714432) CL (test code = 103 mmol/L 98-108 0776595489) CO2 TOTAL (test code = 24 mmol/L 23-31 5092772079) AGAP (test code = 2-16 5939128208) BUN (test code = 15 mg/dL 7-23 4578116927) GLUCOSE (test code = 102 mg/dL 70-110 6366378005) CREATININE (test code = 0.74 mg/dL 0.50-1.04 7318117867) TOTAL BILI (test code = 2.0 mg/dL 0.1-1.1 H 8016818570) CALCIUM (test code = 9.4 mg/dL 8.6-10.6 2100801582) T PROTEIN (test code = 8.9 g/dL 6.3-8.2 H 9532760745) ALBUMIN (test code = 4.9 g/dL 3.5-5.0 4987601153) ALK PHOS (test code = 653 U/L 34-122 H 0865198041) ALTv (test code = 133 U/L 5-35 H 1742-6) AST(SGOT) (test code = 130 U/L 13-40 H 4982643783) eGFR (test code = mL/min/1.73m2 2400454715) KIM (test code = KIM) Association of [...] tests). Lab Interpretation Abnormal (test code = 63304-5) [facility] TexasD-[id number] 21:55:06 Test Item Value Reference Interpretation Comments Range D-DIMER (test code = See_Comment [Autom ated 9946127115) message] The system which generated this result [...] diagnosis. Lab Interpretation Normal (test code = 09230-6) [facility] TexasLIPASE2022-04-10 21:54:46 Test Item Value Reference Range Interpretation Comments LIPASE (test code = 3673300772) 66 U/L 0-220 Lab Interpretation (test code = Normal 27276-6) [facility] WITH [id number] 21:44:24 Test Item Value Reference Range Interpretation [...] RDW-SD (test code = 47.5 fL 39.0-49.9 26235-3) RDW-CV (test code = 13.9 % 12.0-15.5 788-0) PLT (test code = See_Comment L [Automated 777-3) message] The sy stem which generated this result transmitted reference range : 166 - 358 10*3/ ?L. The reference r luca was not used to interpret this result as normal/abnormal . MPV (test code = 10.1 fL 9.5-12.9 11827-6) NRBC/100 WBC (test See_Comment [Automat ed code = 4181993742) message] The system which generated this result transmitted reference range : 0.0 - 10.0 /100 WBCs. The refer ence range was not u sed to interpret th is result as normal/abnormal . NRBC x10^3 (test code <0.01 See_Comment [Auto mated = 5627299271) message] The s ystem which generated this result transmitted reference range : 10*3/?L. The reference range was not used to interpret this result as normal/abnormal . GRAN MAT (NEUT) % 67.1 % (test code = 770-8) IMM GRAN % (test code 0.20 % = 3387452584) LYMPH % (test code = 24.9 % 736-9) MONO % (test code = 5.9 % 5905-5) EOS % (test code = 1.7 % 713-8) BASO % (test code = 0.2 % 706-2) GRAN MAT x10^3(ANC) 2.74 10*3/uL 1.88-7.09 (test code = 8547738272) IMM GRAN x10^3 (test <0.03 0.00-0.06 code = 0401206249) LYMPH x10^3 (test code 1.02 10*3/uL 1.32-3.29 L = 731-0) MONO x10^3 (test code 0.24 10*3/uL 0.33-0.92 L = 742-7) EOS x10^3 (test code = 0.07 10*3/uL 0.03-0.39 711-2) BASO x10^3 (test code <0.03 0.01-0.07 = 704-7) Lab Interpretation Abnormal (test code = 98658-5) [facility] TexasJUNLiza [id number] 21:47:03 Test Item Value Reference Interpretation Comments Range TROPONIN I (test 0.006 ng/mL See_Comment [Automated code = 5316559240) message] The system which generated this result [...] biotin. Lab Interpretation Normal (test code = 38059-5) [facility] TexasN-TERMINAL [id number] 21:44:02 Test Item Value Reference Range Interpretation Comments NT-proBNP (test code 75 pg/mL See_Comment [Autom ated = 2030855380) message] The system which generated this result transmitted reference range : <=125. The reference range was not used to interpret this result as normal/abnormal . KIM (test code = KIM) Biotin has been reported to cause a negative bias, interpret results relative to patient's use of biotin. Lab Interpretation Normal (test code = 95143-6) [facility] TexasCOMP. METABOLIC PANEL (28932)2021-06-03 21:37:20 Test Item Value Reference Range Interpretation Comments NA (test code = 137 mmol/L 135-145 4179996043) K (test code = 4.2 mmol/L 3.5-5.0 1857127416) CL (test code = 108 mmol/L 98-108 9451630920) CO2 TOTAL (test code = 26 mmol/L 23-31 9539004284) AGAP (test code = 2-16 8208547860) BUN (test code = 13 mg/dL 7-23 0644937337) GLUCOSE (test code = 83 mg/dL 70-110 3564374813) CREATININE (test code = 0.51 mg/dL 0.50-1.04 3300196645) TOTAL BILI (test code = 1.4 mg/dL 0.1-1.1 H 3126973693) CALCIUM (test code = 8.6 mg/dL 8.6-10.6 2374491746) T PROTEIN (test code = 7.8 g/dL 6.3-8.2 1667771250) ALBUMIN (test code = 4.3 g/dL 3.5-5.0 5753568142) ALK PHOS (test code = 731 U/L 34-122 H 9654557818) ALTv (test code = 162 U/L 5-35 H 1742-6) AST(SGOT) (test code = 251 U/L 13-40 H 0842810055) eGFR (test code = mL/min/1.73m2 0252959075) KIM (test code = KIM) Association of [...] tests). Lab Interpretation Abnormal (test code = 83047-5) [facility] TexasLIPASE2022-02-19 21:37:00 Test Item Value Reference Range Interpretation Comments LIPASE (test code = 9281151655) 62 U/L 0-220 Lab Interpretation (test code = Normal 98359-4) [facility] TexasACTIVATED PARTIAL THRMPLAS [id number] 21:33:43 Test Item Value Reference Range Interpretation Comments APTT Patient (test See_Comment [Automat ed code = 3173-2) message] The system which generated this result transmitted reference range : 23 - 38 Seconds . The reference range was not used to interpr et this result as normal/abnormal . KIM (test code = KIM) The [facility] patient population mean normal value for aPTT is 30 seconds. Lab Interpretation Normal (test code = 01635-9) [facility] TexasPROTHROMBIN TIME / [id number] 21:31:42 Test Item Value Reference Range Interpretation [...] tions. Lab Interpretation (test Normal code = 28850-2) [facility] TexasCBC WITH [id number] 21:18:43 Test Item Value Reference Range Interpretation [...] RDW-SD (test code = 46.3 fL 39.0-49.9 59710-9) RDW-CV (test code = 13.8 % 12.0-15.5 788-0) PLT (test code = See_Comment L [Automated 777-3) message] The sy stem which generated this result transmitted reference range : 166 - 358 10*3/ ?L. The reference r luca was not used to interpret this result as normal/abnormal . MPV (test code = 9.5 fL 9.5-12.9 67340-6) IPF % (test code = 2.0 % 1.3-7.7 Platelet count 7228021524) measured by fluorescence method. NRBC/100 WBC (test See_Comment [Automat ed code = 2517606840) message] The system which generated this result transmitted reference range : 0.0 - 10.0 /100 WBCs. The refer ence range was not u sed to interpret th is result as normal/abnormal . NRBC x10^3 (test code <0.01 See_Comment [Auto mated = 2106801887) message] The s ystem which generated this result transmitted reference range : 10*3/?L. The reference range was not used to interpret this result as normal/abnormal . GRAN MAT (NEUT) % 68.8 % (test code = 770-8) IMM GRAN % (test code 0.20 % = 3930335231) LYMPH % (test code = 20.0 % 736-9) MONO % (test code = 10.3 % 5905-5) EOS % (test code = 0.5 % 713-8) BASO % (test code = 0.2 % 706-2) GRAN MAT x10^3(ANC) 2.79 10*3/uL 1.88-7.09 (test code = 3154457446) IMM GRAN x10^3 (test <0.03 0.00-0.06 code = 4545108437) LYMPH x10^3 (test code 0.81 10*3/uL 1.32-3.29 L = 731-0) MONO x10^3 (test code 0.42 10*3/uL 0.33-0.92 = 742-7) EOS x10^3 (test code = <0.03 0.03-0.39 L 711-2) BASO x10^3 (test code <0.03 0.01-0.07 = 704-7) Lab Interpretation Abnormal (test code = 58735-6) [facility] TexasLactic Acid Whole [id number] 20:33:44 Test Item Value Reference Range Interpretation Comments LACTIC ACID (test code = 1.37 mmol/L 0.50-2.20 2038736795) Lab Interpretation (test code = Normal 84724-7) [facility] TexasTROPONIN [id number] 06:39:31 Test Item Value Reference Interpretation Comments Range TROPONIN I (test 0.027 ng/mL See_Comment [Automated code = 2272875806) message] The system which generated this result [...] biotin. Lab Interpretation Normal (test code = 48563-1) [facility] TexasN-TERMINAL [id number] 06:36:10 Test Item Value Reference Range Interpretation Comments NT-proBNP (test code 68 pg/mL See_Comment [Autom ated = 8592895307) message] The system which generated this result transmitted reference range : <=125. The reference range was not used to interpret this result as normal/abnormal . KIM (test code = KIM) Biotin has been reported to cause a negative bias, interpret results relative to patient's use of biotin. Lab Interpretation Normal (test code = 62670-7) [facility] TexasCB WITH [id number] 06:30:54 Test Item Value Reference Range Interpretation Comments WBC (test code = See_Comment L [Automated 2590-2) message] The sy stem which [...] RDW-SD (test code = 47.1 fL 39.0-49.9 12180-0) RDW-CV (test code = 13.9 % 12.0-15.5 788-0) PLT (test code = See_Comment L [Automated 777-3) message] The sy stem which generated this result transmitted reference range : 166 - 358 10*3/ ?L. The reference r luca was not used to interpret this result as normal/abnormal . MPV (test code = 10.2 fL 9.5-12.9 03460-1) NRBC/100 WBC (test See_Comment [Automat ed code = 3177217241) message] The system which generated this result transmitted reference range : 0.0 - 10.0 /100 WBCs. The refer ence range was not u sed to interpret th is result as normal/abnormal . NRBC x10^3 (test code <0.01 See_Comment [Auto mated = 0662533661) message] The s ystem which generated this result transmitted reference range : 10*3/?L. The reference range was not used to interpret this result as normal/abnormal . GRAN MAT (NEUT) % 62.6 % (test code = 770-8) IMM GRAN % (test code 0.00 % = 7647640010) LYMPH % (test code = 25.3 % 736-9) MONO % (test code = 9.5 % 5905-5) EOS % (test code = 2.2 % 713-8) BASO % (test code = 0.4 % 706-2) GRAN MAT x10^3(ANC) 1.71 10*3/uL 1.88-7.09 L (test code = 9879561205) IMM GRAN x10^3 (test <0.03 0.00-0.06 code = 7784353671) LYMPH x10^3 (test code 0.69 10*3/uL 1.32-3.29 L = 731-0) MONO x10^3 (test code 0.26 10*3/uL 0.33-0.92 L = 742-7) EOS x10^3 (test code = 0.06 10*3/uL 0.03-0.39 711-2) BASO x10^3 (test code <0.03 0.01-0.07 = 704-7) Lab Interpretation Abnormal (test code = 56335-2) [facility] TexasCOMP. METABOLIC PANEL (09690)2021-05-22 06:27:49 Test Item Value Reference Range Interpretation Comments NA (test code = 138 mmol/L 135-145 7164355154) K (test code = 4.9 mmol/L 3.5-5.0 0662632069) CL (test code = 105 mmol/L 98-108 5395774338) CO2 TOTAL (test code = 24 mmol/L 23-31 6552267915) AGAP (test code = 2-16 7251902778) BUN (test code = 6 mg/dL 7-23 L 4990230653) GLUCOSE (test code = 128 mg/dL 70-110 H 6018301407) CREATININE (test code = 0.54 mg/dL 0.50-1.04 8418994692) TOTAL BILI (test code = 1.3 mg/dL 0.1-1.1 H 2877138676) CALCIUM (test code = 8.4 mg/dL 8.6-10.6 L 7127254435) T PROTEIN (test code = 8.3 g/dL 6.3-8.2 H 8803083223) ALBUMIN (test code = 4.4 g/dL 3.5-5.0 5543867677) ALK PHOS (test code = 650 U/L 34-122 H 8112695328) ALTv (test code = 59 U/L 5-35 H 1742-6) AST(SGOT) (test code = 105 U/L 13-40 H 2405060675) eGFR (test code = mL/min/1.73m2 8296990616) KIM (test code = KIM) Association of [...] tests). Lab Interpretation Abnormal (test code = 75549-2) [facility] MOLECULAR [id number] 15:37:16 Test Item Value Reference Range Interpretation Comments POCT Molecular FluA (test code = Negative Negative 06931-3) POCT Molecular FluB (test code = Negative Negative 16644-7) Lab Interpretation (test code = Normal 81095-6) [facility] MOLECULAR [id number] 15:30:18 Test Item Value Reference Range Interpretation Comments POCT Molecular Strep (test code = Negative Negative 86515-2) Lab Interpretation (test code = Normal 78373-8) [facility] TexasTROPONIN [id number] 21:11:35 Test Item Value Reference Interpretation Comments Range TROPONIN I (test 0.002 ng/mL See_Comment [Automated code = 3926195542) message] The system which generated this result [...] biotin. Lab Interpretation Normal (test code = 80168-0) [facility]. METABOLIC PANEL (06082)2021-04-15 20:54:19 Test Item Value Reference Range Interpretation Comments NA (test code = 137 mmol/L 135-145 5124899159) K (test code = 3.8 mmol/L 3.5-5.0 4347498907) CL (test code = 103 mmol/L 98-108 5974413216) CO2 TOTAL (test code = 26 mmol/L 23-31 8604652793) AGAP (test code = 2-16 4244024536) BUN (test code = 12 mg/dL 7-23 6975799395) GLUCOSE (test code = 111 mg/dL 70-110 H 2933993225) CREATININE (test code = 0.61 mg/dL 0.50-1.04 2053425567) TOTAL BILI (test code = 1.2 mg/dL 0.1-1.1 H 0905311692) CALCIUM (test code = 8.9 mg/dL 8.6-10.6 8461452063) T PROTEIN (test code = 8.1 g/dL 6.3-8.2 9732527514) ALBUMIN (test code = 4.3 g/dL 3.5-5.0 3521859783) ALK PHOS (test code = 693 U/L 34-122 H 7543653396) ALTv (test code = 93 U/L 5-35 H 1742-6) AST(SGOT) (test code = 108 U/L 13-40 H 0372113021) eGFR (test code = mL/min/1.73m2 4693112772) KIM (test code = KIM) Association of [...] tests). Lab Interpretation Abnormal (test code = 08847-8) [facility] TexasL[facility]2022-01-01 20:53:54 Test Item Value Reference Range Interpretation Comments LIPASE (test code = 1321927638) 59 U/L 0-220 Lab Interpretation (test code = Normal 57616-8) [facility] TexasCB WITH [id number] 20:33:32 Test Item Value Reference Range Interpretation [...] RDW-SD (test code = 45.8 fL 39.0-49.9 03289-8) RDW-CV (test code = 13.7 % 12.0-15.5 788-0) PLT (test code = See_Comment [Automated 777-3) message] The sy stem which generated this result transmitted reference range : 166 - 358 10*3/ ?L. The reference r luca was not used to interpret this result as normal/abnormal . MPV (test code = 9.5 fL 9.5-12.9 11551-4) NRBC/100 WBC (test See_Comment [Automat ed code = 2797370545) message] The system which generated this result transmitted reference range : 0.0 - 10.0 /100 WBCs. The refer ence range was not u sed to interpret th is result as normal/abnormal . NRBC x10^3 (test code <0.01 See_Comment [Auto mated = 0993628423) message] The s ystem which generated this result transmitted reference range : 10*3/?L. The reference range was not used to interpret this result as normal/abnormal . GRAN MAT (NEUT) % 70.5 % (test code = 770-8) IMM GRAN % (test code 0.70 % = 8157567517) LYMPH % (test code = 20.2 % 736-9) MONO % (test code = 6.7 % 5905-5) EOS % (test code = 1.4 % 713-8) BASO % (test code = 0.5 % 706-2) GRAN MAT x10^3(ANC) 3.07 10*3/uL 1.88-7.09 (test code = 6560724086) IMM GRAN x10^3 (test 0.03 10*3/uL 0.00-0.06 code = 2152389803) LYMPH x10^3 (test code 0.88 10*3/uL 1.32-3.29 L = 731-0) MONO x10^3 (test code 0.29 10*3/uL 0.33-0.92 L = 742-7) EOS x10^3 (test code = 0.06 10*3/uL 0.03-0.39 711-2) BASO x10^3 (test code <0.03 0.01-0.07 = 704-7) Lab Interpretation Abnormal (test code = 00938-9) [facility] TexasTR[facility]ONIN [id number] 01:49:11 Test Item Value Reference Interpretation Comments Range TROPONIN I (test 0.002 ng/mL See_Comment [Automated code = 3410624019) message] The system which generated this result transmitted reference range : <=0.034. The reference range was not used to interpret this result as normal/abnormal . KIM (test code = Reference (Normal) KMI) Range (defined by the 99th percentile reference [...] biotin. Lab Interpretation Normal (test code = 81577-6) [facility] TexasN-TERMINAL [id number] 01:46:10 Test Item Value Reference Range Interpretation Comments NT-proBNP (test code 56 pg/mL See_Comment [Autom ated = 7170916132) message] The system which generated this result transmitted reference range : <=125. The reference range was not used to interpret this result as normal/abnormal . KIM (test code = KIM) Biotin has been reported to cause a negative bias, interpret results relative to patient's use of biotin. Lab Interpretation Normal (test code = 19461-9) [facility]. METABOLIC PANEL (96732)2021-03-26 01:37:29 Test Item Value Reference Range Interpretation Comments NA (test code = 134 mmol/L 135-145 L 8438521099) K (test code = 4.6 mmol/L 3.5-5.0 2521841212) CL (test code = 103 mmol/L 98-108 9530537623) CO2 TOTAL (test code = 21 mmol/L 23-31 L 3235855879) AGAP (test code = 2-16 3609266886) BUN (test code = 21 mg/dL 7-23 7399538644) GLUCOSE (test code = 98 mg/dL 70-110 4638105467) CREATININE (test code = 0.89 mg/dL 0.50-1.04 4575454385) TOTAL BILI (test code = 1.0 mg/dL 0.1-1.1 4381293811) CALCIUM (test code = 9.6 mg/dL 8.6-10.6 4260861389) T PROTEIN (test code = 8.0 g/dL 6.3-8.2 9768089725) ALBUMIN (test code = 4.5 g/dL 3.5-5.0 7352863782) ALK PHOS (test code = 818 U/L 34-122 H 2156668188) ALTv (test code = 201 U/L 5-35 H 1742-6) AST(SGOT) (test code = 174 U/L 13-40 H 4004842491) eGFR (test code = mL/min/1.73m2 4017497035) KIM (test code = KIM) Association of [...] tests). Lab Interpretation Abnormal (test code = 22175-0) [facility] TexasL[facility]2021-[facility]-12 01:37:09 Test Item Value Reference Range Interpretation Comments LIPASE (test code = 6641149957) 176 U/L 0-220 Lab Interpretation (test code = Normal 78022-5) [facility] WITH [id number] 01:34:08 Test Item Value Reference Range Interpretation Comments WBC (test code = See_Comment [Automated 1827-2) message] The sy stem which generated this result transmitted reference range : 4.30 - 11.10 10*3/?L. The reference range was not used to interpret this result as normal/abnormal . RBC (test code = See_Comment L [Automated 749-8) message] The sy stem which generated this [...] RDW-SD (test code = 43.3 fL 39.0-49.9 66226-8) RDW-CV (test code = 13.0 % 12.0-15.5 788-0) PLT (test code = See_Comment [Automated 777-3) message] The sy stem which generated this result transmitted reference range : 166 - 358 10*3/ ?L. The reference r luca was not used to interpret this result as normal/abnormal . MPV (test code = 10.0 fL 9.5-12.9 05784-0) NRBC/100 WBC (test See_Comment [Automat ed code = 0142132999) message] The system which generated this result transmitted reference range : 0.0 - 10.0 /100 WBCs. The refer ence range was not u sed to interpret th is result as normal/abnormal . NRBC x10^3 (test code <0.01 See_Comment [Auto mated = 7300993915) message] The s ystem which generated this result transmitted reference range : 10*3/?L. The reference range was not used to interpret this result as normal/abnormal . GRAN MAT (NEUT) % 71.1 % (test code = 770-8) IMM GRAN % (test code 0.50 % = 0415914380) LYMPH % (test code = 18.8 % 736-9) MONO % (test code = 7.0 % 5905-5) EOS % (test code = 2.3 % 713-8) BASO % (test code = 0.3 % 706-2) GRAN MAT x10^3(ANC) 4.38 10*3/uL 1.88-7.09 (test code = [id number]) IMM GRAN x10^3 (test 0.03 10*3/uL 0.00-0.06 code = [id number]) LYMPH x10^3 (test code 1.16 10*3/uL 1.32-3.29 L = 731-0) MONO x10^3 (test code 0.43 10*3/uL 0.33-0.92 = 742-7) EOS x10^3 (test code = 0.14 10*3/uL 0.03-0.39 711-2) BASO x10^3 (test code <0.03 0.01-0.07 = 704-7) Lab Interpretation Abnormal (test code = 38304-8) [facility]. METABOLIC PANEL (46368)2021-03-21 00:26:35 Test Item Value Reference Range Interpretation Comments NA (test code = 135 mmol/L 135-145 3767022798) K (test code = 4.6 mmol/L 3.5-5.0 6677655321) CL (test code = 104 mmol/L 98-108 1828203132) CO2 TOTAL (test code = 24 mmol/L 23-31 2344473553) AGAP (test code = 2-16 4467280178) BUN (test code = 17 mg/dL 7-23 5415584908) GLUCOSE (test code = 88 mg/dL 70-110 2448163027) CREATININE (test code = 0.70 mg/dL 0.50-1.04 2774180154) TOTAL BILI (test code = 1.0 mg/dL 0.1-1.3 6598972064) CALCIUM (test code = 8.8 mg/dL 8.6-10.6 5713529138) T PROTEIN (test code = 7.2 g/dL 6.3-8.2 2308000870) ALBUMIN (test code = 3.9 g/dL 3.5-5.0 5209229908) ALK PHOS (test code = 844 U/L 34-122 H 3221689262) ALTv (test code = 192 U/L 5-35 H 1742-6) AST(SGOT) (test code = 189 U/L 13-40 H 0801634428) eGFR (test code = mL/min/1.73m2 2829153602) KIM (test code = KIM) Association of [...] tests). Lab Interpretation Abnormal (test code = 68724-9) [facility] TexasFRANPALLAVI [id number] 23:26:58 Test Item Value Reference Interpretation Comments Range TROPONIN I (test 0.026 ng/mL See_Comment [Automated code = 2197697411) message] The system which generated this result [...] biotin. Lab Interpretation Normal (test code = 87672-0) [facility]2021-[facility] 23:15:37 Test Item Value Reference Range Interpretation Comments LIPASE (test code = 0980267427) 214 U/L 0-220 Lab Interpretation (test code = Normal 74347-7) [facility] WITH [id number] 22:59:33 Test Item Value Reference Range Interpretation [...] RDW-SD (test code = 43.4 fL 39.0-49.9 30821-3) RDW-CV (test code = 13.0 % 12.0-15.5 788-0) PLT (test code = See_Comment [Automated 777-3) message] The sy stem which generated this result transmitted reference range : 166 - 358 10*3/ ?L. The reference r luca was not used to interpret this result as normal/abnormal . MPV (test code = 10.2 fL 9.5-12.9 90983-9) NRBC/100 WBC (test See_Comment [Automat ed code = 1145881209) message] The system which generated this result transmitted reference range : 0.0 - 10.0 /100 WBCs. The refer ence range was not u sed to interpret th is result as normal/abnormal . NRBC x10^3 (test code <0.01 See_Comment [Auto mated = 8316482701) message] The s ystem which generated this result transmitted reference range : 10*3/?L. The reference range was not used to interpret this result as normal/abnormal . GRAN MAT (NEUT) % 65.8 % (test code = 770-8) IMM GRAN % (test code 0.20 % = 4017684983) LYMPH % (test code = 22.8 % 736-9) MONO % (test code = 7.7 % 5905-5) EOS % (test code = 2.9 % 713-8) BASO % (test code = 0.6 % 706-2) GRAN MAT x10^3(ANC) 3.43 10*3/uL 1.88-7.09 (test code = 7812906062) IMM GRAN x10^3 (test <0.03 0.00-0.06 code = 9450812357) LYMPH x10^3 (test code 1.19 10*3/uL 1.32-3.29 L = 731-0) MONO x10^3 (test code 0.40 10*3/uL 0.33-0.92 = 742-7) EOS x10^3 (test code = 0.15 10*3/uL 0.03-0.39 711-2) BASO x10^3 (test code 0.03 10*3/uL 0.01-0.07 = 704-7) Lab Interpretation Abnormal (test code = 73835-9) [facility]. METABOLIC PANEL ([id number])2021-02-12 20:12:57 Test Item Value Reference Range Interpretation Comments NA (test code = 137 mmol/L 135-145 2673589874) K (test code = 4.7 mmol/L 3.5-5.0 8206927137) CL (test code = 106 mmol/L 98-108 7915570805) CO2 TOTAL (test code = 23 mmol/L - 8612211280) AGAP (test code = 2-16 7929357870) BUN (test code = 16 mg/dL 7-23 7486563446) GLUCOSE (test code = 116 mg/dL 70-110 H 0531406699) CREATININE (test code = 0.65 mg/dL 0.50-1.04 8994591306) TOTAL BILI (test code = 1.6 mg/dL 0.1-1.1 H 7408611216) CALCIUM (test code = 9.6 mg/dL 8.6-10.6 2892360500) T PROTEIN (test code = 8.3 g/dL 6.3-8.2 H 3199379589) ALBUMIN (test code = 4.5 g/dL 3.5-5.0 6423752255) ALK PHOS (test code = 650 U/L 34-122 H 7944992577) ALTv (test code = 146 U/L 5-35 H 1742-6) AST(SGOT) (test code = 174 U/L 13-40 H 7607551655) eGFR (test code = mL/min/1.73m2 7112981700) KIM (test code = KIM) Association of [...] tests). Lab Interpretation Abnormal (test code = 20992-9) [facility]2021-[facility]-31 20:12:12 Test Item Value Reference Range Interpretation Comments LIPASE (test code = 0346647073) 86 U/L 0-220 Lab Interpretation (test code = Normal 69355-0) [facility] WITH [id number] 20:02:15 Test Item Value Reference Range Interpretation [...] RDW-SD (test code = 46.4 fL 39.0-49.9 36561-1) RDW-CV (test code = 13.8 % 12.0-15.5 788-0) PLT (test code = See_Comment [Automated 777-3) message] The sy stem which generated this result transmitted reference range : 166 - 358 10*3/ ?L. The reference r luca was not used to interpret this result as normal/abnormal . MPV (test code = 9.8 fL 9.5-12.9 07678-6) NRBC/100 WBC (test See_Comment [Automat ed code = 0227848274) message] The system which generated this result transmitted reference range : 0.0 - 10.0 /100 WBCs. The refer ence range was not u sed to interpret th is result as normal/abnormal . NRBC x10^3 (test code <0.01 See_Comment [Auto mated = 0297622513) message] The s ystem which generated this result transmitted reference range : 10*3/?L. The reference range was not used to interpret this result as normal/abnormal . GRAN MAT (NEUT) % 69.4 % (test code = 770-8) IMM GRAN % (test code 0.40 % = 3614661709) LYMPH % (test code = 20.4 % 736-9) MONO % (test code = 7.2 % 5905-5) EOS % (test code = 2.0 % 713-8) BASO % (test code = 0.6 % 706-2) GRAN MAT x10^3(ANC) 3.77 10*3/uL 1.88-7.09 (test code = 9229436049) IMM GRAN x10^3 (test <0.03 0.00-0.06 code = 4071034782) LYMPH x10^3 (test code 1.11 10*3/uL 1.32-3.29 L = 731-0) MONO x10^3 (test code 0.39 10*3/uL 0.33-0.92 = 742-7) EOS x10^3 (test code = 0.11 10*3/uL 0.03-0.39 711-2) BASO x10^3 (test code 0.03 10*3/uL 0.01-0.07 = 704-7) Lab Interpretation Abnormal (test code = 66230-2) [facility]COMP. METABOLIC PANEL ([id number])2021-01-18 04:36:17 Test Item Value Reference Range Interpretation Comments NA (test code = 137 mmol/L 135-145 5273487340) K (test code = 4.2 mmol/L 3.5-5.0 9130912879) CL (test code = 103 mmol/L 98-108 8838041940) CO2 TOTAL (test code = 27 mmol/L 23-31 0142279870) AGAP (test code = 2-16 6606597931) BUN (test code = 13 mg/dL 7-23 1163929078) GLUCOSE (test code = 100 mg/dL 70-110 6964414184) CREATININE (test code = 0.73 mg/dL 0.50-1.04 3344152547) TOTAL BILI (test code = 1.4 mg/dL 0.1-1.1 H 9318133377) CALCIUM (test code = 9.1 mg/dL 8.6-10.6 0860487682) T PROTEIN (test code = 7.2 g/dL 6.3-8.2 0187411849) ALBUMIN (test code = 4.0 g/dL 3.5-5.0 2797911389) ALK PHOS (test code = 585 U/L 34-122 H 0473474091) ALTv (test code = 78 U/L 5-35 H 1742-6) AST(SGOT) (test code = 73 U/L 13-40 H 8623946680) eGFR (test code = mL/min/1.73m2 3835292125) KIM (test code = KIM) Association of [...] tests). Lab Interpretation Abnormal (test code = 69579-6) [facility] 04:02:39 Test Item Value Reference Range Interpretation Comments LIPASE (test code = 5218460200) 114 U/L 0-220 Lab Interpretation (test code = Normal 97104-6) [facility] WITH [id number] 03:49:11 Test Item Value Reference Range Interpretation [...] (test code = 50.6 fL 39.0-49.9 H 83175-8) RDW-CV (test code = 14.8 % 12.0-15.5 788-0) PLT (test code = See_Comment [Automated 777-3) message] The sy stem which generated this result transmitted reference range : 166 - 358 10*3/ ?L. The reference r luca was not used to interpret this result as normal/abnormal . MPV (test code = 10.7 fL 9.5-12.9 98551-1) NRBC/100 WBC (test See_Comment [Automat ed code = 6036217177) message] The system which generated this result transmitted reference range : 0.0 - 10.0 /100 WBCs. The refer ence range was not u sed to interpret th is result as normal/abnormal . NRBC x10^3 (test code <0.01 See_Comment [Auto mated = 7087901213) message] The s ystem which generated this result transmitted reference range : 10*3/?L. The reference range was not used to interpret this result as normal/abnormal . GRAN MAT (NEUT) % 66.1 % (test code = 770-8) IMM GRAN % (test code 0.20 % = 8685902567) LYMPH % (test code = 23.5 % 736-9) MONO % (test code = 8.1 % 5905-5) EOS % (test code = 1.7 % 713-8) BASO % (test code = 0.4 % 706-2) GRAN MAT x10^3(ANC) 3.49 10*3/uL 1.88-7.09 (test code = 9391322243) IMM GRAN x10^3 (test <0.03 0.00-0.06 code = 6036700721) LYMPH x10^3 (test code 1.24 10*3/uL 1.32-3.29 L = 731-0) MONO x10^3 (test code 0.43 10*3/uL 0.33-0.92 = 742-7) EOS x10^3 (test code = 0.09 10*3/uL 0.03-0.39 711-2) BASO x10^3 (test code <0.03 0.01-0.07 = 704-7) Lab Interpretation Abnormal (test code = 58376-0) [facility] [place]HEPAT[facility] FUN[facility] PANEL (71565) (ALB,T.PRO,BILI T,BU/BC,ALT,AST,ALK PHOS)2020-12-30 18:48:24 Test Item Value Reference Range Interpretation Comments TOTAL BILI (test code = 6144277998) 2.4 mg/dL 0.1-1.1 H BILI UNCON (test code = 6132531098) 0.5 mg/dL 0.1-1.1 BILI CONJ (test code = 9642005606) 0.0 mg/dL 0.0-0.3 T PROTEIN (test code = 1570045812) 9.8 g/dL 6.3-8.2 H ALBUMIN (test code = 5631749211) 4.9 g/dL 3.5-5.0 ALK PHOS (test code = 3611462804) 1181 U/L 34-122 H ALTv (test code = 1742-6) 271 U/L 5-35 H AST(SGOT) (test code = 8828385131) 192 U/L 13-40 H Lab Interpretation (test code = Abnormal 36690-7) [facility] (64337) (ALB,T.PRO,BILI T,BU/BC,ALT,AST,ALK PHOS)2020-12-30 18:48:24 Test Item Value Reference Range Interpretation Comments TOTAL BILI (test code = 6553455918) 2.4 mg/dL 0.1-1.1 H BILI UNCON (test code = 5862367761) 0.5 mg/dL 0.1-1.1 BILI CONJ (test code = 1729573059) 0.0 mg/dL 0.0-0.3 T PROTEIN (test code = 9043729017) 9.8 g/dL 6.3-8.2 H ALBUMIN (test code = 9170832878) 4.9 g/dL 3.5-5.0 ALK PHOS (test code = 5975302782) 1181 U/L 34-122 H ALTv (test code = 1742-6) 271 U/L 5-35 H AST(SGOT) (test code = 9069334634) 192 U/L 13-40 H Lab Interpretation (test code = Abnormal 02637-7) [facility]OL[facility] PAN[facility] (NA, K, CL, CO2, GLUCOSE, BUN, CREATININE, CA)2020-12-30 18:48:02 Test Item Value Reference Range Interpretation Comments NA (test code = 138 mmol/L 135-145 3083898378) K (test code = 4.7 mmol/L 3.5-5.0 7488572523) CL (test code = 106 mmol/L 98-108 8917750022) CO2 TOTAL (test code = 20 mmol/L 23-31 L 3204265983) AGAP (test code = 2-16 8993299509) BUN (test code = 19 mg/dL 7-23 8347597171) GLUCOSE (test code = 134 mg/dL 70-110 H 5361995937) CREATININE (test code = 0.62 mg/dL 0.50-1.04 3116010028) CALCIUM (test code = 10.1 mg/dL 8.6-10.6 2488184098) eGFR (test code = mL/min/1.73m2 9429047572) KIM (test code = KIM) Association of [...] tests). Lab Interpretation Abnormal (test code = 63110-7) [facility]2021-09-17 18:48:02 Test Item Value Reference Range Interpretation Comments LIPASE (test code = 9295359106) 292 U/L 0-220 H Lab Interpretation (test code = Abnormal 39486-6) [facility] METABOLIC PANEL (NA, K, CL, CO2, GLUCOSE, BUN, CREATININE, CA)2020-12-30 18:48:02 Test Item Value Reference Range Interpretation Comments NA (test code = 138 mmol/L 135-145 0425182176) K (test code = 4.7 mmol/L 3.5-5.0 0977298866) CL (test code = 106 mmol/L 98-108 4773248931) CO2 TOTAL (test code = 20 mmol/L 23-31 L 3302618498) AGAP (test code = 2-16 9688331730) BUN (test code = 19 mg/dL 7-23 9687544350) GLUCOSE (test code = 134 mg/dL 70-110 H 1201886608) CREATININE (test code = 0.62 mg/dL 0.50-1.04 3554577035) CALCIUM (test code = 10.1 mg/dL 8.6-10.6 7741516813) eGFR (test code = mL/min/1.73m2 3508705689) KIM (test code = KIM) Association of [...] tests). Lab Interpretation Abnormal (test code = 17461-8) [facility]21-[facility]-17 18:48:02 Test Item Value Reference Range Interpretation Comments LIPASE (test code = 2154757989) 292 U/L 0-220 H Lab Interpretation (test code = Abnormal 29847-9) [facility] WITH [id number] 18:39:23 Test Item Value Reference Range Interpretation [...] RDW-SD (test code = 48.4 fL 39.0-49.9 40165-8) RDW-CV (test code = 14.6 % 12.0-15.5 788-0) PLT (test code = See_Comment [Automated 777-3) message] The sy stem which generated this result transmitted reference range : 166 - 358 10*3/ ?L. The reference r luca was not used to interpret this result as normal/abnormal . MPV (test code = 10.1 fL 9.5-12.9 51642-5) NRBC/100 WBC (test See_Comment [Automat ed code = 4077814005) message] The system which generated this result transmitted reference range : 0.0 - 10.0 /100 WBCs. The refer ence range was not u sed to interpret th is result as normal/abnormal . NRBC x10^3 (test code <0.01 See_Comment [Auto mated = 8427645199) message] The s ystem which generated this result transmitted reference range : 10*3/?L. The reference range was not used to interpret this result as normal/abnormal . GRAN MAT (NEUT) % 75.2 % (test code = 770-8) IMM GRAN % (test code 0.60 % = 5570695172) LYMPH % (test code = 17.0 % 736-9) MONO % (test code = 5.8 % 5905-5) EOS % (test code = 0.9 % 713-8) BASO % (test code = 0.5 % 706-2) GRAN MAT x10^3(ANC) 8.11 10*3/uL 1.88-7.09 H (test code = 2507745494) IMM GRAN x10^3 (test 0.06 10*3/uL 0.00-0.06 code = 7805164266) LYMPH x10^3 (test code 1.83 10*3/uL 1.32-3.29 = 731-0) MONO x10^3 (test code 0.62 10*3/uL 0.33-0.92 = 742-7) EOS x10^3 (test code = 0.10 10*3/uL 0.03-0.39 711-2) BASO x10^3 (test code 0.05 10*3/uL 0.01-0.07 = 704-7) Lab Interpretation Abnormal (test code = 78188-3) [facility] WITH [id number] 18:39:23 Test Item Value Reference Range Interpretation Comments WBC (test code = See_Comment [Automated 9190-2) message] The sy stem which generated this result transmitted reference range : 4.30 - 11.10 10*3/?L. The reference range was not used to interpret this result as normal/abnormal . RBC (test code = See_Comment [Automated 419-8) message] The sy stem which generated this [...] RDW-SD (test code = 48.4 fL 39.0-49.9 20013-3) RDW-CV (test code = 14.6 % 12.0-15.5 788-0) PLT (test code = See_Comment [Automated 777-3) message] The sy stem which generated this result transmitted reference range : 166 - 358 10*3/ ?L. The reference r luca was not used to interpret this result as normal/abnormal . MPV (test code = 10.1 fL 9.5-12.9 60151-9) NRBC/100 WBC (test See_Comment [Automat ed code = 9289288172) message] The system which generated this result transmitted reference range : 0.0 - 10.0 /100 WBCs. The refer ence range was not u sed to interpret th is result as normal/abnormal . NRBC x10^3 (test code <0.01 See_Comment [Auto mated = 2136160311) message] The s ystem which generated this result transmitted reference range : 10*3/?L. The reference range was not used to interpret this result as normal/abnormal . GRAN MAT (NEUT) % 75.2 % (test code = 770-8) IMM GRAN % (test code 0.60 % = 8022491811) LYMPH % (test code = 17.0 % 736-9) MONO % (test code = 5.8 % 5905-5) EOS % (test code = 0.9 % 713-8) BASO % (test code = 0.5 % 706-2) GRAN MAT x10^3(ANC) 8.11 10*3/uL 1.88-7.09 H (test code = 2729090070) IMM GRAN x10^3 (test 0.06 10*3/uL 0.00-0.06 code = 7802759512) LYMPH x10^3 (test code 1.83 10*3/uL 1.32-3.29 = 731-0) MONO x10^3 (test code 0.62 10*3/uL 0.33-0.92 = 742-7) EOS x10^3 (test code = 0.10 10*3/uL 0.03-0.39 711-2) BASO x10^3 (test code 0.05 10*3/uL 0.01-0.07 = 704-7) Lab Interpretation Abnormal (test code = 04668-3) [facility] PELVIS COMPLETE WITH [id number] 23:13:25Focal echogenicity in the left ovary measuring [...] Otherwise unremarkable pelvic ultrasound.RL: [id number] OF REPORT UnC[facility] Health PlainviewLactic Acid Whole [id number] 22:23:55 Test Item Value Reference Range Interpretation Comments LACTIC ACID (test code = 1.49 mmol/L 0.50-2.20 0611126631) Lab Interpretation (test code = Normal 66128-7) [facility] PEL[facility] W [id number] 22:20:59 1. ?No acute intra-abdominal abnormality. 2. ?Gastric wall thickening is nonspecific but can be seen with gastritis. 3. ?Postsurgical changes of cholecystectomy and appendectomy. Pneumobiliaversus nonradiopaque biliary stents are unchanged dating back to 2016. 4. ?Hepatic steatosis and splenomegaly. The 0.9 cm cystic hypodensity atthe uncinate process is slightly smaller from 03/26/2020. This wasevaluated by [facility] 09[facility]/2020, with resultssuggestive of pseudocyst versusside [...] 03/26/2020. This wasevaluated by MR abdomen at [facility] on 09/08/2020, with resultssuggestive of pseudocyst versus side branch IPMN.PreliminaryReport Dictated by Resident: Chester Rivera, Dwight Akers MD., have reviewed this study and agree with the abovereport.[facility] TexasURINALYSIS2021-08-23 20:42:19 Test Item Value Reference Range Interpretation Comments APPEARANCE (test code = Clear Clear 6738631527) COLOR (test code = Lisa Yellow A 9615092067) PH (test code = 4.8-8.0 4649407594) SP GRAVITY (test code = 1.003-1.030 6723740721) GLU U QUAL (test code = Normal Normal 7899678138) BLOOD (test code = Negative Negative 6940033582) KETONES (test code = Negative Negative 6950181503) PROTEIN (test code = 30 mg/dL Negative A 2887-8) UROBILIN (test code = 4.0 mg/dL Normal A 0316965823) BILIRUBIN (test code = 2 mg/dL Negative A 7779135200) NITRITE (test code = Negative Negative 9624125064) LEUK NICHOLE (test code = Negative Negative 4672586167) RBC/HPF (test code = See_Comment [Autom ated message] 4230575051) The system [employer] generated this result transmit gulshan reference range : 0 - 3 HPF. The refe rence range was not u sed to interpret th is result as normal/abnormal . WBC/HPF (test code = See_Comment [Autom ated message] 6539922052) The system [employer] generated this result transmit gulshan reference range : 0 - 5 HPF. The refe rence range was not u sed to interpret th is result as normal/abnormal . BACTERIA (test code = Few Negative A 6676096989) MUCOUS (test code = Slight Negative LPF A 8040315065) SQ EPITH (test code = HPF 2619811243) HYAL CAST (test code = See_Comment [Aut omated message] 7927835359) The system [employer] generated this result transmit gulshan reference range : <=2 LPF. The refere nce range was not u sed to interpret th is result as normal/abnormal . Lab Interpretation (test Abnormal code = 25883-8) [facility]. METABOLIC PANEL (35418)2020-12-05 20:38:13 Test Item Value Reference Range Interpretation Comments NA (test code = 139 mmol/L 135-145 7991191677) K (test code = 3.6 mmol/L 3.5-5.0 0282988364) CL (test code = 106 mmol/L 98-108 5934519148) CO2 TOTAL (test code = 21 mmol/L 23-31 L 2274519680) AGAP (test code = 2-16 1277114677) BUN (test code = 12 mg/dL 7-23 8578810899) GLUCOSE (test code = 91 mg/dL 70-110 1243252852) CREATININE (test code = 0.53 mg/dL 0.50-1.04 6667584152) TOTAL BILI (test code = 3.6 mg/dL 0.1-1.1 H 7453306962) CALCIUM (test code = 9.8 mg/dL 8.6-10.6 0865729170) T PROTEIN (test code = 9.1 g/dL 6.3-8.2 H 4478055274) ALBUMIN (test code = 4.6 g/dL 3.5-5.0 4344693538) ALK PHOS (test code = 1229 U/L 34-122 H 3494664655) ALTv (test code = 311 U/L 5-35 H 1742-6) AST(SGOT) (test code = 280 U/L 13-40 H 6513812464) eGFR (test code = mL/min/1.73m2 6154081551) KIM (test code = KIM) Association of [...] tests). Lab Interpretation Abnormal (test code = 85888-4) [facility] 20:37:32 Test Item Value Reference Range Interpretation Comments LIPASE (test code = 9490470770) 168 U/L 0-220 Lab Interpretation (test code = Normal 40818-1) [facility] WITH [id number] 20:25:55 Test Item Value Reference Range Interpretation Comments WBC (test code = See_Comment [Automated 9482-2) message] The sy stem which generated this result transmitted reference range : 4.30 - 11.10 10*3/?L. The reference range was not used to interpret this result as normal/abnormal . RBC (test code = See_Comment L [Automated 927-8) message] The sy stem which generated this [...] RDW-SD (test code = 49.3 fL 39.0-49.9 56749-9) RDW-CV (test code = 15.0 % 12.0-15.5 788-0) PLT (test code = See_Comment [Automated 777-3) message] The sy stem which generated this result transmitted reference range : 166 - 358 10*3/ ?L. The reference r luca was not used to interpret this result as normal/abnormal . MPV (test code = 10.2 fL 9.5-12.9 29145-4) NRBC/100 WBC (test See_Comment [Automat ed code = 1834064528) message] The system which generated this result transmitted reference range : 0.0 - 10.0 /100 WBCs. The refer ence range was not u sed to interpret th is result as normal/abnormal . NRBC x10^3 (test code <0.01 See_Comment [Auto mated = 2255153792) message] The s ystem which generated this result transmitted reference range : 10*3/?L. The reference range was not used to interpret this result as normal/abnormal . GRAN MAT (NEUT) % 68.6 % (test code = 770-8) IMM GRAN % (test code 0.40 % = 3339662988) LYMPH % (test code = 21.2 % 736-9) MONO % (test code = 7.8 % 5905-5) EOS % (test code = 1.6 % 713-8) BASO % (test code = 0.4 % 706-2) GRAN MAT x10^3(ANC) 3.50 10*3/uL 1.88-7.09 (test code = 0228305473) IMM GRAN x10^3 (test <0.03 0.00-0.06 code = 9460989862) LYMPH x10^3 (test code 1.08 10*3/uL 1.32-3.29 L = 731-0) MONO x10^3 (test code 0.40 10*3/uL 0.33-0.92 = 742-7) EOS x10^3 (test code = 0.08 10*3/uL 0.03-0.39 711-2) BASO x10^3 (test code <0.03 0.01-0.07 = 704-7) Lab Interpretation Abnormal (test code = 50279-1) [facility] TexasL[facility] (81459)(TOTAL CHOLESTEROL, TRIGLYCERIDES, HDL)2020-10-12 16:46:34 Test Item Value Reference Range Interpretation Comments CHOL (test code = 307 mg/dL 120-200 H 3330851112) HDL (test code = 93 mg/dL >50 0446856385) HDLC RATIO (test code = See_Comment [Au tomated message] 2687831447) The system [employer] generated this result transmit gulshan reference range : <=4.5. The refe rence range was not u sed to interpret th is result as normal/abnormal . TRIG (test code = 131 mg/dL 30-170 9377687596) LDL CHOL (test code = 188 mg/dL See_Comment H [Auto mated message] 31101-9) The system [employer] generated this result transmit gulshan reference range : <=160. The refe rence range was not u sed to interpret th is result as normal/abnormal . VLDL (test code = 26 mg/dL 5-60 8940490726) Lab Interpretation (test Abnormal code = 68751-7) [facility] TexasMagnesium [id number] 09:02:26 Test Item Value Reference Range Interpretation Comments MAGNESIUM (test code = 0760727493) 1.9 mg/dL 1.7-2.4 Lab Interpretation (test code = Normal 58430-6) [facility] TexasHEPAT[facility] FUNCTION PANEL (28944) (ALB,T.PRO,BILI T,BU/BC,ALT,AST,ALK PHOS)2020-10-12 09:02:26 Test Item Value Reference Range Interpretation Comments TOTAL BILI (test code = 1088041580) 1.0 mg/dL 0.1-1.1 BILI UNCON (test code = 8890194138) 0.5 mg/dL 0.1-1.1 BILI CONJ (test code = 2990598143) 0.0 mg/dL 0.0-0.3 T PROTEIN (test code = 6359204791) 7.8 g/dL 6.3-8.2 ALBUMIN (test code = 9417617448) 4.3 g/dL 3.5-5.0 ALK PHOS (test code = 8350786203) 608 U/L 34-122 H ALTv (test code = 1742-6) 156 U/L 5-35 H AST(SGOT) (test code = 6936691064) 136 U/L 13-40 H Lab Interpretation (test code = Abnormal 92962-6) [facility] TexasProthrombin Time / [id number] 08:48:50 Test Item Value Reference Range Interpretation [...] tions. Lab Interpretation (test Normal code = 18746-5) [facility] TexasaPTT2021-06-30 08:48:50 Test Item Value Reference Range Interpretation Comments APTT Patient (test code See_Comment H [Au tomated message] = 3173-2) The system [employer] h generated this result transmitted ref erence range: 26 - 36 Seconds. The reference range was not used to int erpret this result as normal/abnormal . Lab Interpretation (test Abnormal code = 81891-2) [facility] TexasCB with Ywbtapyrelkz7585-42-55 08:31:22 Test Item Value Reference Range Interpretation Comments WBC (test code = See_Comment [Automated 4490-2) message] The sy stem which generated this [...] RDW-SD (test code = 41.3 fL 39.0-49.9 38349-3) RDW-CV (test code = 12.6 % 12.0-15.5 788-0) PLT (test code = See_Comment [Automated 777-3) message] The sy stem which generated this result transmitted reference range : 166 - 358 10*3/ ?L. The reference r luca was not used to interpret this result as normal/abnormal . MPV (test code = 9.1 fL 9.5-12.9 L 69939-5) NRBC/100 WBC (test See_Comment [Automat ed code = 0579213846) message] The system which generated this result transmitted reference range : 0.0 - 10.0 /100 WBCs. The refer ence range was not u sed to interpret th is result as normal/abnormal . NRBC x10^3 (test code <0.01 See_Comment [Auto mated = 9906908730) message] The s ystem which generated this result transmitted reference range : 10*3/?L. The reference range was not used to interpret this result as normal/abnormal . GRAN MAT (NEUT) % 62.6 % (test code = 770-8) IMM GRAN % (test code 0.40 % = 4111067006) LYMPH % (test code = 26.8 % 736-9) MONO % (test code = 7.7 % 5905-5) EOS % (test code = 2.1 % 713-8) BASO % (test code = 0.4 % 706-2) GRAN MAT x10^3(ANC) 3.32 10*3/uL 1.88-7.09 (test code = 9309555310) IMM GRAN x10^3 (test <0.03 0.00-0.06 code = 0850206256) LYMPH x10^3 (test code 1.42 10*3/uL 1.32-3.29 = 731-0) MONO x10^3 (test code 0.41 10*3/uL 0.33-0.92 = 742-7) EOS x10^3 (test code = 0.11 10*3/uL 0.03-0.39 711-2) BASO x10^3 (test code <0.03 0.01-0.07 = 704-7) Lab Interpretation Abnormal (test code = 22067-7) [facility] METABOLIC PANEL (NA, K, CL, CO2, GLUCOSE, BUN, CREATININE, CA)2020-10-12 04:16:15 Test Item Value Reference Range Interpretation Comments NA (test code = 138 mmol/L 135-145 4792603182) K (test code = 4.1 mmol/L 3.5-5.0 7410310668) CL (test code = 104 mmol/L 98-108 0027852542) CO2 TOTAL (test code 23 mmol/L 23-31 = 2186793037) AGAP (test code = 2-16 8513428326) BUN (test code = 16 mg/dL 7-23 3692828324) GLUCOSE (test code = 83 mg/dL 70-110 3087116594) CREATININE (test code 0.63 mg/dL 0.50-1.04 = 1866991032) CALCIUM (test code = 9.4 mg/dL 8.6-10.6 5047663170) eGFR (test code = mL/min/1.73m2 8102578542) KIM (test code = KIM) Association of [...] or urine or abnormalities in imaging tests). [facility] ([facility]24) (ALB,T.PRO,BILI T,BU/BC,ALT,AST,ALK PHOS)2020-10-12 04:16:15 Test Item Value Reference Range Interpretation Comments TOTAL BILI (test code = 1044728618) 1.1 mg/dL 0.1-1.1 BILI UNCON (test code = 1518972773) 0.5 mg/dL 0.1-1.1 BILI CONJ (test code = 4704138449) 0.0 mg/dL 0.0-0.3 T PROTEIN (test code = 8403568404) 8.5 g/dL 6.3-8.2 H ALBUMIN (test code = 4991501241) 4.6 g/dL 3.5-5.0 ALK PHOS (test code = 7368464508) 679 U/L 34-122 H ALTv (test code = 1742-6) 168 U/L 5-35 H AST(SGOT) (test code = 0440739051) 143 U/L 13-40 H Lab Interpretation (test code = Abnormal 86743-1) [facility]OVID-19 (ID NOW RAPID TESTING)2020-10-11 16:36:41 Test Item Value Reference Range Interpretation Comments SARS-CoV-2 Rapid ID NOW Not Detected Not Detected (test code = 43379-3) KIM (test code = KIM) ID NOW COVID-19 Assay is an isothermal nucleic acid amplification test intended for the qualitative detection of nucleic acid from SARS-CoV-2 viral RNA in nasopharyngeal (ENVELOPE MACHINE ADJUSTER) specimens. It is used under Emergency Use [...] indicated. Lab Interpretation Normal (test code = 10596-2) [facility] GALL [id number] 15:28:53HISTORY: Rule out biliary duct stenosis. COMPARISON: [...] ductstenosis cannot be adequately evaluated by this study.[facility], Radiant Results Inft User - 10/11/2020 10:30 [...] ductstenosis cannot be adequately evaluated by this study.[facility] Troponin [id number] 14:35:05 Test Item Value Reference Interpretation Comments Range TROPONIN I (test 0.004 ng/mL See_Comment [Automated code = 2308276776) message] The system which generated this result [...] biotin. Lab Interpretation Normal (test code = 03101-9) [facility] Texas[facility] Function [facility] (ALB, T.PRO, BILI T, BU/BC, ALT, AST, ALK PHOS)2020-10-11 14:24:25 Test Item Value Reference Range Interpretation Comments TOTAL BILI (test code = 7243711497) 0.9 mg/dL 0.1-1.1 BILI UNCON (test code = 0040235291) 0.3 mg/dL 0.1-1.1 BILI CONJ (test code = 2668863386) 0.0 mg/dL 0.0-0.3 T PROTEIN (test code = 8146349356) 9.0 g/dL 6.3-8.2 H ALBUMIN (test code = 0549754270) 4.8 g/dL 3.5-5.0 ALK PHOS (test code = 8668657978) 752 U/L 34-122 H ALTv (test code = 1742-6) 164 U/L 5-35 H AST(SGOT) (test code = 5253227723) 166 U/L 13-40 H Lab Interpretation (test code = Abnormal 52495-5) [facility] Metabolic Panel (NA, K, CL, CO2, GLUCOSE, BUN, CREATININE, CA)2020-10-11 14:24:05 Test Item Value Reference Range Interpretation Comments NA (test code = 139 mmol/L 135-145 2614082396) K (test code = 4.3 mmol/L 3.5-5.0 4446423737) CL (test code = 106 mmol/L 98-108 6165784549) CO2 TOTAL (test code = 22 mmol/L 23-31 L 4528162637) AGAP (test code = 2-16 5439332012) BUN (test code = 15 mg/dL 7-23 1980169474) GLUCOSE (test code = 106 mg/dL 70-110 7233754565) CREATININE (test code = 0.63 mg/dL 0.50-1.04 3426482501) CALCIUM (test code = 10.0 mg/dL 8.6-10.6 2387286955) eGFR (test code = mL/min/1.73m2 3505072553) KIM (test code = KIM) Association of [...] tests). Lab Interpretation Abnormal (test code = 24670-1) [facility] TexasLipase [id number] 14:24:05 Test Item Value Reference Range Interpretation Comments LIPASE (test code = 5750516414) 169 U/L 0-220 Lab Interpretation (test code = Normal 80092-7) [facility] TexasUrinalysis2021-06-29 14:23:55 Test Item Value Reference Range Interpretation Comments APPEARANCE (test code = Hazy Clear A 9213039001) COLOR (test code = Yellow Yellow 0680764121) PH (test code = 4.8-8.0 9714238858) SP GRAVITY (test code = 1.003-1.030 8983476545) GLU U QUAL (test code = Normal Normal 1768464380) BLOOD (test code = Negative Negative 5214765979) KETONES (test code = Negative Negative 3064459254) PROTEIN (test code = Negative Negative 2887-8) UROBILIN (test code = Normal Normal 4867630967) BILIRUBIN (test code = Negative Negative 7886891138) NITRITE (test code = Negative Negative 7241932938) LEUK NICHOLE (test code = Negative Negative 0536840882) RBC/HPF (test code = See_Comment [Autom ated message] 3740680858) The system Modular Patterns generated this result transmitted ref erence range: 0 - 3 HP F. The reference range was not used to int erpret this result as normal/abnormal . WBC/HPF (test code = See_Comment [Autom ated message] 7898529780) The system Modular Patterns generated this result transmitted ref erence range: 0 - 5 HP F. The reference range was not used to int erpret this result as normal/abnormal . BACTERIA (test code = Few Negative A 2981258012) AMORPHOUS (test code = Rare Rare HPF 7744216085) SQ EPITH (test code = HPF 6477475350) HYAL CAST (test code = See_Comment H [Aut omated message] 9079060505) The system Modular Patterns generated this result transmitted ref erence range: <=2 LPF. The reference range was not used to int erpret this result as normal/abnormal . Lab Interpretation (test Abnormal code = 47165-4) [facility] with [id number] 14:14:01 Test Item Value Reference Range Interpretation Comments WBC (test code = See_Comment [Automated message] 2490-2) The system Modular Patterns generated this result transmitted ref erence range: 4.30 - 1 1.10 10*3/?L. The re ference range was not u sed to interpret this result as normal/abnor mal. RBC (test code = See_Comment [Automated message] 799-8) The system Modular Patterns generated this result transmitted ref erence range: [...] RDW-SD (test code 40.1 fL 39.0-49.9 = 54648-7) RDW-CV (test code 12.3 % 12.0-15.5 = 788-0) PLT (test code = See_Comment [Automated message] 027-3) The system Modular Patterns generated this result transmitted ref erence range: 166 - 35 8 10*3/?L. The re ference range was not u sed to interpret this result as normal/abnor mal. MPV (test code = 9.7 fL 9.5-12.9 99181-7) NRBC/100 WBC (test See_Comment [Automat ed message] code = 1954838527) The syste m which generated this result transmitted ref erence range: 0.0 - 10 .0 /100 WBCs. The refer ence range was not u sed to interpret this result as normal/abnor mal. NRBC x10^3 (test <0.01 See_Comment [Automated message] code = 4837921434) The syste m which generated this result transmitted ref erence range: 10*3/?L. The reference range was not used to interpr et this result as normal/abnormal . GRAN MAT (NEUT) % 63.7 % (test code = 770-8) IMM GRAN % (test 0.40 % code = 2374556539) LYMPH % (test code 26.2 % = 736-9) MONO % (test code 7.6 % = 5905-5) EOS % (test code = 1.7 % 713-8) BASO % (test code 0.4 % = 706-2) GRAN MAT 3.45 10*3/uL 1.88-7.09 x10^3(ANC) (test code = 1575174485) IMM GRAN x10^3 <0.03 0.00-0.06 (test code = 9723334444) LYMPH x10^3 (test 1.42 10*3/uL 1.32-3.29 code = 731-0) MONO x10^3 (test 0.41 10*3/uL 0.33-0.92 code = 742-7) EOS x10^3 (test 0.09 10*3/uL 0.03-0.39 code = 711-2) BASO x10^3 (test <0.03 0.01-0.07 code = 704-7) [facility]. METABOLIC PANEL (80606)2020-10-04 23:43:59 Test Item Value Reference Range Interpretation Comments NA (test code = 138 mmol/L 135-145 9388509828) K (test code = 4.1 mmol/L 3.5-5.0 5192169107) CL (test code = 105 mmol/L 98-108 2535942270) CO2 TOTAL (test code = 26 mmol/L 23-31 7664583665) AGAP (test code = 2-16 1517568162) BUN (test code = 12 mg/dL 7-23 1063440217) GLUCOSE (test code = 124 mg/dL 70-110 H 8567855992) CREATININE (test code = 0.51 mg/dL 0.50-1.04 0853414654) TOTAL BILI (test code = 1.0 mg/dL 0.1-1.7 2316427241) CALCIUM (test code = 9.3 mg/dL 8.6-10.6 5577697189) T PROTEIN (test code = 7.9 g/dL 6.3-8.2 1462950015) ALBUMIN (test code = 4.1 g/dL 3.5-5.0 2698279748) ALK PHOS (test code = 619 U/L 34-122 H 7349999165) ALTv (test code = 99 U/L 5-35 H 1742-6) AST(SGOT) (test code = 97 U/L 13-40 H 1878758845) eGFR (test code = mL/min/1.73m2 7623973429) KIM (test code = KIM) Association of [...] tests). Lab Interpretation Abnormal (test code = 99529-4) [facility] TexasLIPASE2021-06-22 23:43:38 Test Item Value Reference Range Interpretation Comments LIPASE (test code = 0997983153) 182 U/L 0-220 Lab Interpretation (test code = Normal 40453-6) [facility]OVID[facility] (ID NOW RAPID TESTING)2020-10-04 23:39:59 Test Item Value Reference Range Interpretation Comments SARS-CoV-2 Rapid ID NOW Not Detected Not Detected (test code = 22592-0) KIM (test code = KIM) ID NOW COVID-19 Assay is an isothermal nucleic acid amplification test intended for the qualitative detection of nucleic acid from SARS-CoV-2 viral RNA in nasopharyngeal (ENVELOPE MACHINE ADJUSTER) specimens. It is used under Emergency Use [...] indicated. Lab Interpretation Normal (test code = 79677-7) [facility] TexasURINALYSIS2021-06-22 23:36:26 Test Item Value Reference Range Interpretation Comments APPEARANCE (test code = Clear Clear 6189338051) COLOR (test code = Lisa Yellow A 9269478915) PH (test code = 4.8-8.0 5301272220) SP GRAVITY (test code = 1.003-1.030 9084649656) GLU U QUAL (test code = Normal Normal 1254094643) BLOOD (test code = Negative Negative 9747426587) KETONES (test code = Negative Negative 6643881624) PROTEIN (test code = Negative Negative 2887-8) UROBILIN (test code = 4.0 mg/dL Normal A 9511124300) BILIRUBIN (test code = Negative Negative 9168416419) NITRITE (test code = Negative Negative 1800710918) LEUK NICHOLE (test code = Negative Negative 7635458861) RBC/HPF (test code = See_Comment [Autom ated message] 0653866832) The system Modular Patterns generated this result transmit gulshan reference range : 0 - 3 HPF. The refe rence range was not u sed to interpret th is result as normal/abnormal . WBC/HPF (test code = <1 See_Comment [Autom ated message] 4418082326) The system Modular Patterns generated this result transmit gulshan reference range : 0 - 5 HPF. The refe rence range was not u sed to interpret th is result as normal/abnormal . BACTERIA (test code = Few Negative A 0198568708) MUCOUS (test code = Slight Negative LPF A 4771180625) SQ EPITH (test code = HPF 6068305221) Lab Interpretation (test Abnormal code = 88303-6) [facility] WITH [id number] 23:29:18 Test Item Value Reference Range Interpretation Comments WBC (test code = See_Comment L [Automated 6690-2) message] The sy stem which generated this result transmitted reference range : 4.30 - 11.10 10*3/?L. The reference range was not used to interpret this result as normal/abnormal . RBC (test code = See_Comment L [Automated 749-8) message] The sy stem which generated this [...] RDW-SD (test code = 40.5 fL 39.0-49.9 93383-0) RDW-CV (test code = 12.2 % 12.0-15.5 788-0) PLT (test code = See_Comment [Automated 777-3) message] The sy stem which generated this result transmitted reference range : 166 - 358 10*3/ ?L. The reference r luca was not used to interpret this result as normal/abnormal . MPV (test code = 9.8 fL 9.5-12.9 25006-3) NRBC/100 WBC (test See_Comment [Automat ed code = 4345616109) message] The system which generated this result transmitted reference range : 0.0 - 10.0 /100 WBCs. The refer ence range was not u sed to interpret th is result as normal/abnormal . NRBC x10^3 (test code <0.01 See_Comment [Auto mated = 9194926580) message] The s ystem which generated this result transmitted reference range : 10*3/?L. The reference range was not used to interpret this result as normal/abnormal . GRAN MAT (NEUT) % 72.0 % (test code = 770-8) IMM GRAN % (test code 0.20 % = 3145873230) LYMPH % (test code = 19.8 % 736-9) MONO % (test code = 6.4 % 5905-5) EOS % (test code = 1.4 % 713-8) BASO % (test code = 0.2 % 706-2) GRAN MAT x10^3(ANC) 3.06 10*3/uL 1.88-7.09 (test code = 3734693440) IMM GRAN x10^3 (test <0.03 0.00-0.06 code = 8039851428) LYMPH x10^3 (test code 0.84 10*3/uL 1.32-3.29 L = 731-0) MONO x10^3 (test code 0.27 10*3/uL 0.33-0.92 L = 742-7) EOS x10^3 (test code = 0.06 10*3/uL 0.03-0.39 711-2) BASO x10^3 (test code <0.03 0.01-0.07 = 704-7) Lab Interpretation Abnormal (test code = 10344-0) [facility] TexasMR, ABDOMEN, [id number] 13:41:00Liver Protocol with ElastographyUnlisted Reason for Exam - Click Yes and Enter Reason Below->YesUnlisted Reason for Exam->History of liver fibrosis [facility] 1960 Sex: FFINAL [...] MDReport Verified Date/Time: 09/08/2020 13:41:30 Reading Location: [facility] C0[facility] Ortho Consult Reading Room PROTHROMBIN TIME/[id number] 04:34:00 Test Item Value Reference Range Interpretation Comments PROTIME (BEAKER) 11.7 seconds 11.9-14.2 L (test code = 759) INR (BEAKER) (test 0.88 See_Comment [Automat ed message] code = 370) The system Modular Patterns generated this result transmitted ref erence range: <=5.90. The reference range was not used to int erpret this result as normal/abnormal . RECOMMENDED COUMADIN/WARFARIN INR THERAPY RANGESSTANDARD DOSE: 2.0 - 3.0 Includes: PROPHYLAXIS for venous thrombosis, systemic embolization; TREATMENT for venous thrombosis and/or pulmonary embolus.HIGH RISK: Target INR is 2.5-3.5 for patients with mechanical heart valves.BASIC METABOLIC [id number] 04:51:00 Test Item Value Reference Range Interpretation [...] S NOT APPLICABLE FOR DIALYSIS PATIEN TS. Caser Up ID - ALAINA GAMBINOSAINT ELIZABETH HEBRONC FUNCTION [id number] 04:51:00 Test Item Value Reference Range Interpretation [...] code = 132 U/L 6-55 H 347) [facility]er [facility] ID - ALAINA [id number] 04:51:00 Test Item Value Reference Range Interpretation Comments LIPASE (TERRY) (test code = 749) 115 U/L 8-78 H Caser Up ID - ALAINA WPROTHROMBIN TIME/[id number] 04:25:00 Test Item Value Reference Range Interpretation Comments PROTIME (TERRY) 12.3 seconds 11.9-14.2 (test code = 759) INR (TERRY) (test 0.94 See_Comment [Automat ed message] code = 370) The system Modular Patterns generated this result transmitted ref erence range: <=5.90. The reference range was not used to int erpret this result as normal/abnormal . RECOMMENDED COUMADIN/WARFARIN INR THERAPY RANGESSTANDARD DOSE: 2.0 - 3.0 Includes: PROPHYLAXIS for venous thrombosis, systemic embolization; TREATMENT for venous thrombosis and/or pulmonary embolus.HIGH RISK: Target INR is 2.5-3.5 for patients with mechanical heart valves.FL, [id number] 08:00:00INTRA OP IMAGIN Reason for exam:->ercp [facility] : 1960 Sex: FFluoroscopic unit utilized for a procedure performed in the OR. No interpretation was requested. Refer to the operative report for findings. Refer to PACS for patient radiation dose information.SARS-COV2/RT-PCR ([facility])2020-09-06 06:35:00 Test Item Value Reference Range Interpretation Comments SARS-COV2/RT-PCR (test Negative Not Detected, Negative, code = 1117472) See external report for linked test SARS-COV-2 PERFORMING LAB [facility] (test code = 1955135) Negative result for this test determines that [...] the Simms SARS-CoV-2 assay.Fact Sheet for Healthcare Providers:https://www.Intrakr.simms/bertha/RT_SAR N-KmG-9_EVF_Svsd_Bdxnq_22-236392.pdfFact Sheet for Healthcare Patients:https://www.molecular.simms/s al/FF_MNDZ-QwH-9_Vkphjrh_Pfph_Aphjy_ZX_20-785299P1.pdfPerforming Laboratory:[place] [address] [place] [address] PROTHROMBIN TIME/[id number] 04:41:00 Test Item Value Reference Range Interpretation Comments PROTIME (BEAKER) 12.4 seconds 11.9-14.2 (test code = 759) INR (BEAKER) (test 0.95 See_Comment [Automat ed message] code = 370) The system Modular Patterns generated this result transmitted ref erence range: <=5.90. The reference range was not used to int erpret this result as normal/abnormal . RECOMMENDED COUMADIN/WARFARIN INR THERAPY RANGESSTANDARD DOSE: 2.0 - 3.0 Includes: PROPHYLAXIS for venous thrombosis, systemic embolization; TREATMENT for venous thrombosis and/or pulmonary embolus.HIGH RISK: Target INR is 2.5-3.5 for patients with mechanical heart valves.[id number] 14:40:00 Test Item Value Reference Range Interpretation Comments MAGNESIUM (BEAKER) 1.9 mg/dL 1.6-2.6 Specimen slightly (test code = 627) hemolyzed Caser Up ID Ryan NEGRON FBASIC METABOLIC [id number] 14:40:00 Test Item Value Reference Range Interpretation [...] S NOT APPLICABLE FOR DIALYSIS PATIEN TS. Caser Up ID Ryan NEGRON FHEPATIC FUNCTION [id number] 14:40:00 Test Item Value Reference Range Interpretation [...] Specimen slightly (test code = 347) hemolyzed Caser Up ID Ryan NEGRON [id number] 14:40:00 Test Item Value Reference Range Interpretation Comments LIPASE (BEAKER) (test code = 749) 446 U/L 8-78 H Caser Up ID Ryan MIGDALIA FCBC W/PLT COUNT & AUTO [id number] 14:14:00 Test Item Value Reference Range Interpretation [...] PERCENT (BEAKER) (test code = 2801) [place], [id number] 08:35:00Reason for exam:->abnormal imaging [facility] : 1960 Sex: FFluoroscopic unit utilized for a procedure performed in the OR. No interpretation was requested. Refer to the operative report for findings. Refer to PACS for patient radiation dose information.[id number] 06:42:00 Test Item Value Reference Range Interpretation Comments MAGNESIUM (BEAKER) (test code = 1.8 mg/dL 1.6-2.6 627) Caser Up ID - [id number] 06:42:00 Test Item Value Reference Range Interpretation Comments PHOSPHORUS (BEAKER) (test code = 3.4 mg/dL 2.3-4.7 604) Caser Up ID - EDASIHEPATIC FUNCTION [id number] 06:42:00 Test Item Value Reference Range Interpretation [...] code = 89 U/L 6-55 H 347) Caser Up ID - EDASIBASIC METABOLIC [id number] 06:42:00 Test Item Value Reference Range Interpretation [...] S NOT APPLICABLE FOR DIALYSIS PATIEN TS. Caser Up ID - EDASICBC W/PLT COUNT & AUTO [id number] 05:27:00 Test Item Value Reference Range Interpretation [...] PERCENT (BEAKER) (test code = 2801) SARS-COV2/RT-PCR ([facility])2020-08-26 12:43:00 Test Item Value Reference Range Interpretation Comments SARS-COV2/RT-PCR (test Negative Not Detected, Negative, code = 2873362) See external report for linked test SARS-COV-2 PERFORMING LAB [facility] (test code = 8794127) Negative result for this test determines that [...] of the Act.Fact Sheet for Healthcare Prov iders:https://www.VideoClix/sites/default/files/product/documents/Fact_Sheet_HC _Vyishxvaz_Wvxk_GAUC-EzJ-0.pdfFact Sheet for Healthcare Patients:https://www.Video[employer]ix/sites/default/files/product/docume nts/Ljte_Vpcxl_Brndkztj_Exqf_XUCW-CnT-7.pdfPerforming Laboratory:[place] [facility], [place] [address]WLOUH METABOLIC PANEL 2020-08-26 06:19:00 Test Item Value [...] S NOT APPLICABLE FOR DIALYSIS PATIEN TS. Caser Up ID - PIAYA [id number] 06:19:00 Test Item Value Reference Range Interpretation Comments MAGNESIUM (BEAKER) (test code = 1.8 mg/dL 1.6-2.6 627) Caser Up ID - PIAYA LHEPATIC FUNCTION [id number] 06:19:00 Test Item Value Reference Range Interpretation [...] code = 82 U/L 6-55 H 347) Caser Up ID - DONNA LCBC W/PLT COUNT & AUTO [id number] 05:37:00 Test Item Value Reference Range Interpretation [...] images do not require a Radiology diagnostic report.[facility] TexasFL TIME OR (NON-REPORTABLE)2020-07-18 13:25:02These images do not require a Radiology diagnostic report.[facility] GLUCOSE (AUTOMATED) 2020-07-18 12:07:46 Test Item Value Reference Range Interpretation Comments POCT GLU (test code = 3194799516) 98 mg/dL 70-110 Lab Interpretation (test code = Normal 43792-2) [facility] GLUCOSE (AUTOMATED)2020-07-18 12:07:46 Test Item Value Reference Range Interpretation Comments POCT GLU (test code = 5019785471) 98 mg/dL 70-110 Lab Interpretation (test code = Normal 91894-2) [facility] ABDOMEN PELVIS W [id number] 01:39:22 1. ?No acute obstruction or inflammation in the abdomen or pelvis. 2. Appendix removed. 3. No adnexal mass. 4. There is abundant stool throughout the colon. RL: 1105 HISTORY: ?Abdominal abscess/infection suspected COMPARISON:none TECHNIQUE:CT scan of the abdomen and pelvis performed. Contiguous axial CT imageswere obtained after administration of intravenous contrast. ?CT scan doneaccording to [facility]. Technical quality: Technical quality: adequate. FINDINGS: Lung [...] administration ofintravenous contrast. CT scan doneaccording to [facility]. Technical quality: Technical quality: adequate.FINDINGS:Lung bases are [...] There is abundant stool throughoutthe colon.RL: 1105 [facility]viewTRMUS[facility]ENTERNIN [id number] 00:55:45 Test Item Value Reference Range Interpretation Comments TROPONIN I (test 0.002 ng/mL See_Comment [Automated code = 6003690511) message] The system which generated this result [...] ? Lab Interpretation Normal (test code = 33557-9) [facility] TexasCOVID-19 (ID NOW RAPID TESTING)2020-07-08 00:47:04 Test Item Value Reference Range Interpretation Comments SARS-CoV-2 Rapid ID NOW Not Detected Not Detected (test code = 03407-9) KIM (test code = KIM) ID NOW COVID-19 Assay is an isothermal nucleic acid amplification test intended for the qualitative detection of nucleic acid from SARS-CoV-2 viral RNA in nasopharyngeal (ENVELOPE MACHINE ADJUSTER) specimens. It is used under Emergency Use [...] indicated. Lab Interpretation Normal (test code = 55736-4) [facility] TexasMAGNESIUM2021-03-26 00:45:06 Test Item Value Reference Range Interpretation Comments MAGNESIUM (test code = 1514681786) 2.0 mg/dL 1.7-2.4 Lab Interpretation (test code = Normal 72908-1) [facility] TexasCOMP. METABOLIC PANEL (66606)2020-07-08 00:44:41 Test Item Value Reference Range Interpretation Comments NA (test code = 139 mmol/L 135-145 4773453723) K (test code = 4.4 mmol/L 3.5-5.0 0419834634) CL (test code = 108 mmol/L 98-108 1060684943) CO2 TOTAL (test code = 23 mmol/L 23-31 4346978683) AGAP (test code = 2-16 0559455200) BUN (test code = 22 mg/dL 7-23 6645372337) GLUCOSE (test code = 107 mg/dL 70-110 5015611166) CREATININE (test code = 0.62 mg/dL 0.50-1.04 5237283657) TOTAL BILI (test code = 0.9 mg/dL 0.1-1.5 3450624232) CALCIUM (test code = 10.0 mg/dL 8.6-10.6 1934972794) T PROTEIN (test code = 8.3 g/dL 6.3-8.2 H 4505554559) ALBUMIN (test code = 4.8 g/dL 3.5-5.0 0597369891) ALK PHOS (test code = 1085 U/L 34-122 H 9043127159) ALTv (test code = 383 U/L 5-35 H 1742-6) AST(SGOT) (test code = 217 U/L 13-40 H 7830460567) eGFR Calculation mL/min/1.73m2 (Non-) (test code = 4150617831) eGFR Calculation mL/min/1.73m2 () (test code = 6703705647) KIM (test code = KIM) Association of [...] tests). Lab Interpretation Abnormal (test code = 63918-0) [facility] 00:44:41 Test Item Value Reference Range Interpretation Comments LIPASE (test code = 6407641025) 131 U/L 0-220 Lab Interpretation (test code = Normal 25489-3) [facility]2021-[facility]-26 00:38:06 Test Item Value Reference Range Interpretation Comments APPEARANCE (test code = Clear Clear 7928807340) COLOR (test code = Yellow Yellow 6789098267) PH (test code = 4.8-8.0 5780693782) SP GRAVITY (test code = 1.003-1.030 9595919532) GLU U QUAL (test code = Normal Normal 2331911947) BLOOD (test code = Negative Negative 9226539844) KETONES (test code = Negative Negative 3158590771) PROTEIN (test code = Negative Negative 2887-8) UROBILIN (test code = 4.0 mg/dL Normal A 0426112283) BILIRUBIN (test code = Negative Negative 9722983371) NITRITE (test code = Negative Negative 3242266176) LEUK NICHOLE (test code = Negative Negative 5248807324) RBC/HPF (test code = <1 See_Comment [Autom ated message] 9331244955) The system [employer] generated this result transmit gulshan reference range : 0 - 3 HPF. The refe rence range was not u sed to interpret th is result as normal/abnormal . WBC/HPF (test code = See_Comment [Autom ated message] 8473437697) The system whic h generated this result transmit gulshan reference range : 0 - 5 HPF. The refe rence range was not u sed to interpret th is result as normal/abnormal . BACTERIA (test code = Few Negative A 5056407186) MUCOUS (test code = Slight Negative LPF A 6842076638) SQ EPITH (test code = HPF 4230933026) Lab Interpretation (test Abnormal code = 18632-8) [facility] WITH [id number] 00:32:00 Test Item Value Reference Range Interpretation [...] RDW-SD (test code = 48.1 fL 39.0-49.9 87717-7) RDW-CV (test code = 14.5 % 12.0-15.5 788-0) PLT (test code = See_Comment [Automated 777-3) message] The sy stem which generated this result transmitted reference range : 166 - 358 10*3/ ?L. The reference r luca was not used to interpret this result as normal/abnormal . MPV (test code = 9.5 fL 9.5-12.9 24585-0) NRBC/100 WBC (test See_Comment [Automat ed code = 9718077657) message] The system which generated this result transmitted reference range : 0.0 - 10.0 /100 WBCs. The refer ence range was not u sed to interpret th is result as normal/abnormal . NRBC x10^3 (test code <0.01 See_Comment [Auto mated = 7435194471) message] The s ystem which generated this result transmitted reference range : 10*3/?L. The reference range was not used to interpret this result as normal/abnormal . GRAN MAT (NEUT) % 78.2 % (test code = 770-8) IMM GRAN % (test code 0.60 % = 8358058145) LYMPH % (test code = 11.9 % 736-9) MONO % (test code = 8.3 % 5905-5) EOS % (test code = 0.5 % 713-8) BASO % (test code = 0.5 % 706-2) GRAN MAT x10^3(ANC) 7.55 10*3/uL 1.88-7.09 H (test code = 1866856757) IMM GRAN x10^3 (test 0.06 10*3/uL 0.00-0.06 code = 1844961706) LYMPH x10^3 (test code 1.15 10*3/uL 1.32-3.29 L = 731-0) MONO x10^3 (test code 0.80 10*3/uL 0.33-0.92 = 742-7) EOS x10^3 (test code = 0.05 10*3/uL 0.03-0.39 711-2) BASO x10^3 (test code 0.05 10*3/uL 0.01-0.07 = 704-7) Lab Interpretation Abnormal (test code = 18458-1) [facility] TIME OR (NON-REPORTABLE)2020-07-04 13:40:03 These images do not require a Radiology diagnostic report.[facility] TIME OR (NON-REPORTABLE)2020-06-20 14:58:12These images do not require a Radiology diagnostic report.[facility] (NA, K, CL, CO2, GLUCOSE, BUN, CREATININE, CA)2020-05-06 23:29:00 Test Item Value Reference Range Interpretation Comments NA (test code = 138 mmol/L 135-145 6218318345) K (test code = 4.4 mmol/L 3.5-5 1022738232) CL (test code = 108 mmol/L 98-108 4111462709) CO2 TOTAL (test code = 20 mmol/L 23-31 L 8835119155) AGAP (test code = 2-16 5788679869) BUN (test code = 18 mg/dL 7-23 9947853454) GLUCOSE (test code = 90 mg/dL 70-110 8966810840) CREATININE (test code = 0.68 mg/dL 0.5-1.04 3155925022) CALCIUM (test code = 9.1 mg/dL 8.6-10.6 1422084573) eGFR Calculation mL/min/1.73m2 (Non-) (test code = 3895657733) eGFR Calculation mL/min/1.73m2 () (test code = 5269562418) KIM (test code = KIM) Association of [...] tests). Lab Interpretation Abnormal (test code = 19451-7) [facility] Texas[facility] (ALB, T.PRO, BILI T, BU/BC, ALT, AST, ALK PHOS)2020-05-06 23:28:00 Test Item Value Reference Range Interpretation Comments TOTAL BILI (test code = 6312382853) 1.1 mg/dL 0.1-1.1 BILI UNCON (test code = 9673420491) 0.4 mg/dL 0.1-1.1 BILI CONJ (test code = 4167391280) 0.0 mg/dL 0-0.3 T PROTEIN (test code = 9495793205) 7.9 g/dL 6.3-8.2 ALBUMIN (test code = 8218181772) 4.4 g/dL 3.5-5 ALK PHOS (test code = 1251086254) 984 U/L 34-122 H ALTv (test code = 1742-6) 218 U/L 5-35 H AST(SGOT) (test code = 3697068405) 133 U/L 13-40 H Lab Interpretation (test code = Abnormal 79615-1) [facility] TexasTroponin [id number] 22:19:00 Test Item Value Reference Range Interpretation Comments TROPONIN I (test 0.021 ng/mL See_Comment [Automated code = 9005329623) message] The system which generated this result [...] ? Lab Interpretation Normal (test code = 64348-3) [facility] TexasCOVID-19 (ID NOW RAPID TESTING)2020-05-06 22:13:00 Test Item Value Reference Range Interpretation Comments SARS-CoV-2 Rapid ID NOW Not Detected Not Detected (test code = 46410-0) KIM (test code = KIM) ID NOW COVID-19 Assay is an isothermal nucleic acid amplification test intended for the qualitative detection of nucleic acid from SARS-CoV-2 viral RNA in nasopharyngeal (ENVEL[employer] MACHINE ADJUSTER) specimens. It is used under Emergency Use [...] indicated. Lab Interpretation Normal (test code = 30127-3) [facility] TexasUrinalysis2021-01-22 22:09:00 Test Item Value Reference Range Interpretation Comments APPEARANCE (test code = Clear Clear 6071079537) COLOR (test code = Yellow Yellow 3415051806) PH (test code = 4.8-8.0 2180510647) SP GRAVITY (test code = 1.003-1.030 6813117501) GLU U QUAL (test code = Normal Normal 1186130121) BLOOD (test code = Negative Negative INTERFERE NCE FROM 4918157984) ASCORBIC ACID M AY CAUSE FALSE NEG ATIVE RESULT KETONES (test code = Negative Negative 7925184949) PROTEIN (test code = Negative Negative 2887-8) UROBILIN (test code = 2.0 mg/dL Normal A 1029054283) BILIRUBIN (test code = Negative Negative 0928008183) NITRITE (test code = Negative Negative 3371318637) LEUK NICHOLE (test code = Negative Negative 1088521294) RBC/HPF (test code = See_Comment [Autom ated message] 7504433758) The system [employer] generated this result transmitted ref erence range: 0 - 3 HP F. The reference range was not used to int erpret this result as normal/abnormal . WBC/HPF (test code = See_Comment [Autom ated message] 8328823568) The system [employer] generated this result transmitted ref erence range: 0 - 5 HP F. The reference range was not used to int erpret this result as normal/abnormal . BACTERIA (test code = Few Negative A 0593935602) SQ EPITH (test code = HPF 5455101178) HYAL CAST (test code = See_Comment [Aut omated message] 7644905217) The system [employer] generated this result transmitted ref erence range: <=2 LPF. The reference range was not used to int erpret this result as normal/abnormal . Lab Interpretation Abnormal (test code = 53388-2) [facility] TexasLipase [id number] 22:08:00 Test Item Value Reference Range Interpretation Comments LIPASE (test code = 0698088876) 114 U/L 0-220 Lab Interpretation (test code = Normal 85957-9) [facility] TexasCB with [id number] 22:02:00 Test Item Value Reference Range Interpretation [...] RDW-SD (test code = 41.0 fL 39-49.9 96689-8) RDW-CV (test code = 12.4 % 12-15.5 788-0) PLT (test code = See_Comment [Automated 777-3) message] The sy stem which generated this result transmitted reference range : 166 - 358 10*3/ ?L. The reference r luca was not used to interpret this result as normal/abnormal . MPV (test code = 10.5 fL 9.5-12.9 41783-0) NRBC/100 WBC (test See_Comment [Automat ed code = 5182321588) message] The system which generated this result transmitted reference range : 0.0 - 10.0 /100 WBCs. The refer ence range was not u sed to interpret th is result as normal/abnormal . NRBC x10^3 (test code <0.01 See_Comment [Auto mated = 6270385979) message] The s ystem which generated this result transmitted reference range : 10*3/?L. The reference range was not used to interpret this result as normal/abnormal . GRAN MAT (NEUT) % 71.8 % (test code = 770-8) IMM GRAN % (test code 0.10 % = 6523882505) LYMPH % (test code = 19.0 % 736-9) MONO % (test code = 6.2 % 5905-5) EOS % (test code = 2.2 % 713-8) BASO % (test code = 0.7 % 706-2) GRAN MAT x10^3(ANC) 4.83 10*3/uL 1.88-7.09 (test code = 9742644903) IMM GRAN x10^3 (test <0.03 0-0.06 code = 2023126522) LYMPH x10^3 (test code 1.28 10*3/uL 1.32-3.29 L = 731-0) MONO x10^3 (test code 0.42 10*3/uL 0.33-0.92 = 742-7) EOS x10^3 (test code = 0.15 10*3/uL 0.03-0.39 711-2) BASO x10^3 (test code 0.05 10*3/uL 0.01-0.07 = 704-7) Lab Interpretation Abnormal (test code = 06156-2) [facility] 1 [id number] 21:48:28Findings and Impression: ?Subcentimeter calcified granuloma projecting [...] is normal to mildly enlarged. No acuteosseous abnormalities.[facility] TexasUrinalysis2020-12-12 05:27:00 Test Item Value Reference Range Interpretation Comments APPEARANCE (test code Slightly Cloudy Clear A = 1661789692) COLOR (test code = Yellow Yellow 7186538964) PH (test code = 4.8-8.0 2663230202) SP GRAVITY (test code >=1.030 1.003-1.030 = 3200019855) GLU U QUAL (test code Negative Negative = 6901343991) BLOOD (test code = Trace Negative A 6982007962) KETONES (test code = Negative Negative 0915708718) PROTEIN (test code = Negative Negative 2887-8) UROBILIN (test code = 1.0 mg/dL See_Comment [Auto mated 9888295775) message] The system which generated this result transmit gulshan reference range : 0-1.0 mg/dL. Th e reference range was not used to interpret this result as normal/abnormal . BILIRUBIN (test code Small Negative A = 6898871436) NITRITE (test code = Negative Negative 4997230658) LEUK NICHOLE (test code Trace Negative A = 8141136524) RBC/HPF (test code = See_Comment [Autom ated 7630763452) message] The system which generated this result transmit gulshan reference range : 0 - 3 HPF. The reference range was not used to interpret this result as normal/abnormal . WBC/HPF (test code = See_Comment [Autom ated 8685857477) message] The system which generated this result transmit gulshan reference range : 0 - 5 HPF. The reference range was not used to interpret this result as normal/abnormal . BACTERIA (test code = Few Negative A 2459993511) AMORPHOUS (test code Few Rare HPF A = 2414231012) SQ EPITH (test code = HPF 5852609147) Lab Interpretation Abnormal (test code = 92584-9) [facility]OVID[facility] (ID NOW RAPID TESTING)2020-03-26 04:39:00 Test Item Value Reference Range Interpretation Comments SARS-CoV-2 Rapid ID NOW Not Detected Not Detected (test code = 86031-8) KIM (test code = KIM) ID NOW COVID-19 Assay is an isothermal nucleic acid amplification test intended for the qualitative detection of nucleic acid from SARS-CoV-2 viral RNA in nasopharyngeal ([employer]EL[employer] MACHINE ADJUSTER) specimens. It is used under Emergency Use [...] indicated. Lab Interpretation Normal (test code = 30443-1) [facility] TexasComplete Metabolic [id number] 04:12:00 Test Item Value Reference Range Interpretation Comments NA (test code = 139 mmol/L 135-145 3070931900) K (test code = 4.5 mmol/L 3.5-5 5046878417) CL (test code = 108 mmol/L 98-108 8724314650) CO2 TOTAL (test code = 22 mmol/L 23-31 L 3297113220) AGAP (test code = 2-16 6185633967) BUN (test code = 17 mg/dL 7-23 8902150940) GLUCOSE (test code = 102 mg/dL 70-110 6997589181) CREATININE (test code = 0.96 mg/dL 0.5-1.04 5686892940) TOTAL BILI (test code = 0.7 mg/dL 0.1-1.2 1291229571) CALCIUM (test code = 9.3 mg/dL 8.6-10.6 8757240310) T PROTEIN (test code = 7.3 g/dL 6.3-8.2 1677766488) ALBUMIN (test code = 4.1 g/dL 3.5-5 8620220308) ALK PHOS (test code = 675 U/L 34-122 H 0425182388) ALTv (test code = 115 U/L 5-35 H 1742-6) AST(SGOT) (test code = 100 U/L 13-40 H 1240165643) eGFR Calculation mL/min/1.73m2 (Non-) (test code = 0685309093) eGFR Calculation mL/min/1.73m2 () (test code = 7845210279) KIM (test code = KIM) Association of [...] tests). Lab Interpretation Abnormal (test code = 24311-6) [facility] TexasLipase, [id number] 04:11:00 Test Item Value Reference Range Interpretation Comments LIPASE (test code = 1455340412) 171 U/L 0-220 Lab Interpretation (test code = Normal 82559-1) [facility] with [id number] 03:56:00 Test Item Value Reference Range Interpretation Comments WBC (test code = See_Comment [Automated 6690-2) message] The sy stem which generated this result transmitted reference range : 4.30 - 11.10 10*3/?L. The reference range was not used to interpret this result as normal/abnormal . RBC (test code = See_Comment L [Automated 839-8) message] The sy stem which generated this [...] RDW-SD (test code = 47.5 fL 39-49.9 74876-6) RDW-CV (test code = 13.3 % 12-15.5 788-0) PLT (test code = See_Comment [Automated 777-3) message] The sy stem which generated this result transmitted reference range : 166 - 358 10*3/ ?L. The reference r luca was not used to interpret this result as normal/abnormal . MPV (test code = 9.4 fL 9.5-12.9 L 56228-1) NRBC/100 WBC (test See_Comment [Automat ed code = 4210151674) message] The system which generated this result transmitted reference range : 0.0 - 10.0 /100 WBCs. The refer ence range was not u sed to interpret th is result as normal/abnormal . NRBC x10^3 (test code <0.01 See_Comment [Auto mated = 4246018348) message] The s ystem which generated this result transmitted reference range : 10*3/?L. The reference range was not used to interpret this result as normal/abnormal . GRAN MAT (NEUT) % 67.1 % (test code = 770-8) IMM GRAN % (test code 0.70 % = 7219866806) LYMPH % (test code = 22.2 % 736-9) MONO % (test code = 6.4 % 5905-5) EOS % (test code = 2.9 % 713-8) BASO % (test code = 0.7 % 706-2) GRAN MAT x10^3(ANC) 3.69 10*3/uL 1.88-7.09 (test code = 8480066985) IMM GRAN x10^3 (test 0.04 10*3/uL 0-0.06 code = 4100504386) LYMPH x10^3 (test code 1.22 10*3/uL 1.32-3.29 L = 731-0) MONO x10^3 (test code 0.35 10*3/uL 0.33-0.92 = 742-7) EOS x10^3 (test code = 0.16 10*3/uL 0.03-0.39 711-2) BASO x10^3 (test code 0.04 10*3/uL 0.01-0.07 = 704-7) Lab Interpretation Abnormal (test code = 30240-3) [facility] TexasMR BRAIN WO [id number] 17:24:06 Impression: 1. ?Normal MRI brain. 2. [...] MRI brain.2. Mastoid effusions.3. Right petrous apex effusion.[facility] TexasBLOOD CULTURE [id number] 21:10:00 Test Item Value Reference Range Interpretation Comments Blood Culture-Aerobic Culture positive. No growth AA P revious (test code = 09134-1) See Blood Culture p reliminary Workup for verified result additional was Culture In information. Progress on 02/02/2020 at 1901 CDT Blood No organisms No growth Previous Culture-Anaerobic isolated preliminar y (test code = 30851-0) verifi ed result was Culture In Progress on 02/03/2020 at 1314 CDT Lab Interpretation Abnormal (test code = 21147-9) [facility] TexasBL[facility] CULTURE [id number] 21:01:00 Test Item Value Reference Range Interpretation Comments Blood Culture-Aerobic No organisms No growth Previo us (test code = 35050-9) isolated prelim inary verified result was Culture [...] Culture-Anaerobic isolated preliminar y (test code = 30458-0) verifi ed result was Culture In Progress [...] CDT Lab Interpretation Normal (test code = 38933-4) [facility] TexasBASIC METABOLIC PANEL (NA, K, CL, CO2, GLUCOSE, BUN, CREATININE, CA)2020-02-07 09:09:00 Test Item Value Reference Range Interpretation Comments NA (test code = 136 mmol/L 135-145 9820380445) K (test code = 4.3 mmol/L 3.5-5 Slight hemoly sis 9075345688) CL (test code = 104 mmol/L 98-108 8281875269) CO2 TOTAL (test 26 mmol/L 23-31 code = 0313169962) AGAP (test code = 2-16 6851140970) BUN (test code = 12 mg/dL 7-23 Slight hemo lysis 4421209948) GLUCOSE (test code 98 mg/dL 70-110 = 0672227565) CREATININE (test 0.50 mg/dL 0.5-1.04 code = 5844443952) CALCIUM (test code 8.9 mg/dL 8.6-10.6 = 7924418194) eGFR Calculation mL/min/1.73m2 (Non-) (test code = 8811568840) eGFR Calculation mL/min/1.73m2 () (test code = 8389111050) KIM (test code = Association of KIM) [...] or urine or abnormalities in imaging tests). [facility] WITH [id number] 08:58:00 Test Item Value Reference Range Interpretation Comments WBC (test code = See_Comment [Automated 8379-2) message] The sy stem which generated this result transmitted reference range : 4.30 - 11.10 10*3/?L. The reference range was not used to interpret this result as normal/abnormal . RBC (test code = See_Comment L [Automated 329-8) message] The sy stem which generated this [...] RDW-SD (test code = 48.5 fL 39-49.9 98017-6) RDW-CV (test code = 13.9 % 12-15.5 788-0) PLT (test code = See_Comment [Automated 777-3) message] The sy stem which generated this result transmitted reference range : 166 - 358 10*3/ ?L. The reference r luca was not used to interpret this result as normal/abnormal . MPV (test code = 9.1 fL 9.5-12.9 L 30078-2) NRBC/100 WBC (test See_Comment [Automat ed code = 8637281598) message] The system which generated this result transmitted reference range : 0.0 - 10.0 /100 WBCs. The refer ence range was not u sed to interpret th is result as normal/abnormal . NRBC x10^3 (test code <0.01 See_Comment [Auto mated = 7126419181) message] The s ystem which generated this result transmitted reference range : 10*3/?L. The reference range was not used to interpret this result as normal/abnormal . GRAN MAT (NEUT) % 69.8 % (test code = 770-8) IMM GRAN % (test code 0.40 % = 1878024493) LYMPH % (test code = 21.9 % 736-9) MONO % (test code = 6.7 % 5905-5) EOS % (test code = 0.8 % 713-8) BASO % (test code = 0.4 % 706-2) GRAN MAT x10^3(ANC) 3.66 10*3/uL 1.88-7.09 (test code = 4283586341) IMM GRAN x10^3 (test <0.03 0-0.06 code = 7267330561) LYMPH x10^3 (test code 1.15 10*3/uL 1.32-3.29 L = 731-0) MONO x10^3 (test code 0.35 10*3/uL 0.33-0.92 = 742-7) EOS x10^3 (test code = 0.04 10*3/uL 0.03-0.39 711-2) BASO x10^3 (test code <0.03 0.01-0.07 = 704-7) Lab Interpretation Abnormal (test code = 74680-2) [facility] MUSCLE AB,IGG [id number] 15:17:00 Test Item Value Reference Range Interpretation Comments F-ACTIN (SMOOTH See_Comment If F-Actin (Smooth Muscle) MUSCLE) AB, Antibody, IgG i s negative, IGG(BEAKER) (test the Smooth Muscle Antibody code = 94358-5) titer by IFA is not performed.REFER ENCE [...] for A IH is strong.Performe d By: [facility] [address] [place], [place] [address]Mmynhttyiy Director: Praveena Mantilla MD [Automated mess age] The system which ge nerated this result transmit gulshan reference range : 0 - 19 Units. The refe rence range was not used to interpret this result as normal/abnormal . [facility] TexasMITOCHONDRIAL M2 AB, [id number] 00:28:00 Test Item Value Reference Range Interpretation Comments AMA (test code = See_Comment H REFERENCE I NTERVAL: 00048-5) Mitochondrial ( M2) Antibody, IgG ? ?20.0 [...] does not rule out PBC.Perform ed By: [facility] [address] [place], [place] [address]Kixxgvnmov Director: Praveena Mantilla MD [Aut omated message] The sy stem which generated this result transmit gulshan reference range : 0.0 - 24.9 Units. The reference range was not used to int erpret this result as normal/abnormal . Lab Interpretation Abnormal (test code = 89820-0) [facility] TexasBL[facility]OD CULTURE [id number] 17:01:00 Test Item Value Reference Range Interpretation Comments Blood Culture-Aerobic No organisms No growth Previo us (test code = 61779-3) isolated prelim inary verified result was Culture [...] Culture-Anaerobic isolated preliminar y (test code = 53474-0) verifi ed result was Culture In Progress [...] CDT Lab Interpretation Normal (test code = 77920-8) [facility] TexasBLOOD CULTURE [id number] 14:01:00 Test Item Value Reference Range Interpretation Comments Blood Culture Coagulase negative Addition al Workup (test Staphylococcus work-up perfo rmed code = 600-7) only per reque st. Culture plate(s ) will be saved until this date : - 02/10/20 Gram stain Isolated from aerobic (test code = bottle Gram positive 664-3) cocci [facility] TexasCOMP. METABOLIC PANEL (96172)2020-02-05 09:59:00 Test Item Value Reference Range Interpretation Comments NA (test code = 140 mmol/L 135-145 2991404249) K (test code = 3.7 mmol/L 3.5-5 4298578520) CL (test code = 107 mmol/L 98-108 1115067369) CO2 TOTAL (test code = 25 mmol/L 23-31 4947449376) AGAP (test code = 2-16 7308618950) BUN (test code = 11 mg/dL 7-23 0486431242) GLUCOSE (test code = 90 mg/dL 70-110 2041331107) CREATININE (test code = 0.58 mg/dL 0.5-1.04 3367952972) TOTAL BILI (test code = 0.9 mg/dL 0.1-1.8 5102679578) CALCIUM (test code = 8.9 mg/dL 8.6-10.6 7078442259) T PROTEIN (test code = 6.7 g/dL 6.3-8.2 0829821396) ALBUMIN (test code = 3.5 g/dL 3.5-5 5383386731) ALK PHOS (test code = 518 U/L 34-122 H 8551629515) ALTv (test code = 84 U/L 5-35 H 1742-6) AST(SGOT) (test code = 49 U/L 13-40 H 0350612532) eGFR Calculation mL/min/1.73m2 (Non-) (test code = 5617160957) eGFR Calculation mL/min/1.73m2 () (test code = 9141949843) KIM (test code = KIM) Association of [...] tests). Lab Interpretation Abnormal (test code = 28039-4) [facility] WITH [id number] 09:43:00 Test Item Value Reference Range Interpretation [...] RDW-SD (test code = 48.1 fL 39-49.9 54060-3) RDW-CV (test code = 13.4 % 12-15.5 788-0) PLT (test code = See_Comment [Automated 777-3) message] The sy stem which generated this result transmitted reference range : 166 - 358 10*3/ ?L. The reference r luca was not used to interpret this result as normal/abnormal . MPV (test code = 8.7 fL 9.5-12.9 L 44800-2) NRBC/100 WBC (test See_Comment [Automat ed code = 9846568413) message] The system which generated this result transmitted reference range : 0.0 - 10.0 /100 WBCs. The refer ence range was not u sed to interpret th is result as normal/abnormal . NRBC x10^3 (test code <0.01 See_Comment [Auto mated = 7312205269) message] The s ystem which generated this result transmitted reference range : 10*3/?L. The reference range was not used to interpret this result as normal/abnormal . GRAN MAT (NEUT) % 68.3 % (test code = 770-8) IMM GRAN % (test code 0.20 % = 3385558504) LYMPH % (test code = 24.2 % 736-9) MONO % (test code = 5.5 % 5905-5) EOS % (test code = 1.4 % 713-8) BASO % (test code = 0.4 % 706-2) GRAN MAT x10^3(ANC) 3.47 10*3/uL 1.88-7.09 (test code = 5193107491) IMM GRAN x10^3 (test <0.03 0-0.06 code = 3603465236) LYMPH x10^3 (test code 1.23 10*3/uL 1.32-3.29 L = 731-0) MONO x10^3 (test code 0.28 10*3/uL 0.33-0.92 L = 742-7) EOS x10^3 (test code = 0.07 10*3/uL 0.03-0.39 711-2) BASO x10^3 (test code <0.03 0.01-0.07 = 704-7) Lab Interpretation Abnormal (test code = 46814-2) [facility] CERVICAL SPINE WO [id number] 05:59:37 Mild degenerative changes most pronounced at C5-C6 and C6-C7 as above. RL: 460 AFC: [id number] Ordering physician: JESUSITA AGUILLON INDICATION: Neck pain, [...] at C5-C6 and C6-C7 as above.RL: 460AF: [id number] signed by Minal Vaughan MD, PhD at 02/05/2020 12:59 AMUnC[facility] PlainviewOCCULT (GUAIAC) [id number] 14:40:00 Test Item Value Reference Range Interpretation Comments Occult (guaiac) Blood (test code = Negative Negative 2335-8) Lab Interpretation (test code = Normal 83579-1) [facility] TexasN-TERMINAL [id number] 10:32:00 Test Item Value Reference Range Interpretation Comments NT-proBNP (test code 403 pg/mL See_Comment H [Autom ated = 1207066959) message] The system which generated this result transmitted reference range : <=125. The reference range was not used to interpret this result as normal/abnormal . KIM (test code = KIM) Biotin has been reported to cause a negative bias, interpret results relative to patient's use of biotin. Lab Interpretation Abnormal (test code = 70918-0) [facility]. METABOLIC PANEL (29115)2020-02-04 10:24:00 Test Item Value Reference Range Interpretation Comments NA (test code = 138 mmol/L 135-145 2956127062) K (test code = 3.7 mmol/L 3.5-5 2822061951) CL (test code = 106 mmol/L 98-108 3500121333) CO2 TOTAL (test code = 27 mmol/L 23-31 0691187468) AGAP (test code = 2-16 2751916786) BUN (test code = 9 mg/dL 7-23 7976192791) GLUCOSE (test code = 105 mg/dL 70-110 5049184207) CREATININE (test code = 0.59 mg/dL 0.5-1.04 9735891438) TOTAL BILI (test code = 0.9 mg/dL 0.1-1.8 1029213386) CALCIUM (test code = 9.0 mg/dL 8.6-10.6 9074043904) T PROTEIN (test code = 6.4 g/dL 6.3-8.2 9917745444) ALBUMIN (test code = 3.2 g/dL 3.5-5 L 7213719347) ALK PHOS (test code = 486 U/L 34-122 H 6118643059) ALTv (test code = 91 U/L 5-35 H 1742-6) AST(SGOT) (test code = 41 U/L 13-40 H 7981745783) eGFR Calculation mL/min/1.73m2 (Non-) (test code = 3366127384) eGFR Calculation mL/min/1.73m2 () (test code = 5418744690) KIM (test code = KIM) Association of [...] tests). Lab Interpretation Abnormal (test code = 23469-0) [facility] TexasMAGNESIUM2020-10-22 10:24:00 Test Item Value Reference Range Interpretation Comments MAGNESIUM (test code = 1532674437) 1.8 mg/dL 1.7-2.4 Lab Interpretation (test code = Normal 49519-0) [facility] TexasCB with [id number] 10:11:00 Test Item Value Reference Range Interpretation [...] RDW-SD (test code = 47.9 fL 39-49.9 22693-7) RDW-CV (test code = 13.7 % 12-15.5 788-0) PLT (test code = See_Comment [Automated 777-3) message] The sy stem which generated this result transmitted reference range : 166 - 358 10*3/ ?L. The reference r luca was not used to interpret this result as normal/abnormal . MPV (test code = 8.5 fL 9.5-12.9 L 39551-7) NRBC/100 WBC (test See_Comment [Automat ed code = 0302593481) message] The system which generated this result transmitted reference range : 0.0 - 10.0 /100 WBCs. The refer ence range was not u sed to interpret th is result as normal/abnormal . NRBC x10^3 (test code <0.01 See_Comment [Auto mated = 9368400974) message] The s ystem which generated this result transmitted reference range : 10*3/?L. The reference range was not used to interpret this result as normal/abnormal . GRAN MAT (NEUT) % 74.2 % (test code = 770-8) IMM GRAN % (test code 0.40 % = 5703857184) LYMPH % (test code = 16.6 % 736-9) MONO % (test code = 6.8 % 5905-5) EOS % (test code = 1.7 % 713-8) BASO % (test code = 0.3 % 706-2) GRAN MAT x10^3(ANC) 5.60 10*3/uL 1.88-7.09 (test code = 3364606131) IMM GRAN x10^3 (test 0.03 10*3/uL 0-0.06 code = 6800191004) LYMPH x10^3 (test code 1.25 10*3/uL 1.32-3.29 L = 731-0) MONO x10^3 (test code 0.51 10*3/uL 0.33-0.92 = 742-7) EOS x10^3 (test code = 0.13 10*3/uL 0.03-0.39 711-2) BASO x10^3 (test code <0.03 0.01-0.07 = 704-7) Lab Interpretation Abnormal (test code = 04822-5) [facility] TexasANTI-NUCLEAR ANTIBODY [id number] 19:43:00 Test Item Value Reference Range Interpretation Comments LESLY (test code = Negative Negative 9211744488) KIM (test code = KIM) Cytoplasmic staining reactions observed. Negative - No Anti-Nuclear Antibodies detected by IFA.Positive - LESLY IFA screen performed with a 1:80 dilution in adults and a 1:40 dilution in pediatrics. Any LESLY "Positive" will have titer performed and reported separately. Lab Interpretation (test Normal code = 12735-6) [facility] TexasCERULOPLASMIN2020-10-21 18:45:00 Test Item Value Reference Range Interpretation Comments CERULO (test code = 9916164583) 55 mg/dL 25-63 Lab Interpretation (test code = Normal 75624-3) [facility] TexasAMMONIA, [id number] 17:29:00 Test Item Value Reference Range Interpretation Comments AMMONIA (test code = 5903403881) <9 9-33 L Lab Interpretation (test code = Abnormal 25001-1) [facility] TexasBLOOD CULTURE [id number] 17:07:00 Test Item Value Reference Range Interpretation Comments Blood Culture-Aerobic Culture positive. No growth AA P revious (test code = 07427-6) See Blood Culture p reliminary Workup for verified result additional was Culture In information. Progress on 01/31/2020 at 1701 CDTPreviou s preliminary verified result was No growth a t 24 hours on 02/01/2020 at 1401 CDT Blood No organisms No growth Previous Culture-Anaerobic isolated preliminar y (test code = 65664-7) verifi ed result was Culture In Progress on 01/31/2020 at 1701 CDTPreviou s preliminary verified result was No growth a t 24 hours on 02/01/2020 at 1401 CDT Lab Interpretation Abnormal (test code = 40855-6) [facility] TexasBLOOD CULTURE [id number] 17:07:00 Test Item Value Reference Range Interpretation [...] positive cocci is no longer being reported. [facility] TexasCREATINE [id number] 10:44:00 Test Item Value Reference Range Interpretation Comments CK (test code = 5815204696) 21 U/L 33-194 L Lab Interpretation (test code = Abnormal 20654-6) [facility] TexasN-TERMINAL [id number] 09:34:00 Test Item Value Reference Range Interpretation Comments NT-proBNP (test code 850 pg/mL See_Comment H [Autom ated = 9437161172) message] The system which generated this result transmitted reference range : <=125. The reference range was not used to interpret this result as normal/abnormal . KIM (test code = KIM) Biotin has been reported to cause a negative bias, interpret results relative to patient's use of biotin. Lab Interpretation Abnormal (test code = 98349-6) [facility] TexasCOMP. METABOLIC PANEL (78249)2020-02-03 09:26:00 Test Item Value Reference Range Interpretation Comments NA (test code = 136 mmol/L 135-145 5202963555) K (test code = 3.6 mmol/L 3.5-5 3603869107) CL (test code = 104 mmol/L 98-108 9324195553) CO2 TOTAL (test code = 28 mmol/L 23-31 6564160373) AGAP (test code = 2-16 7189312274) BUN (test code = 7 mg/dL 7-23 3052802420) GLUCOSE (test code = 138 mg/dL 70-110 H 7342309003) CREATININE (test code = 0.61 mg/dL 0.5-1.04 6678049503) TOTAL BILI (test code = 1.0 mg/dL 0.1-1.9 6760156022) CALCIUM (test code = 9.2 mg/dL 8.6-10.6 7329719887) T PROTEIN (test code = 6.6 g/dL 6.3-8.2 0290876258) ALBUMIN (test code = 3.5 g/dL 3.5-5 7327419170) ALK PHOS (test code = 584 U/L 34-122 H 8903857951) ALTv (test code = 131 U/L 5-35 H 1742-6) AST(SGOT) (test code = 49 U/L 13-40 H 0941210771) eGFR Calculation mL/min/1.73m2 (Non-) (test code = 5947104081) eGFR Calculation mL/min/1.73m2 () (test code = 8152915852) KIM (test code = KIM) Association of [...] tests). Lab Interpretation Abnormal (test code = 58084-9) [facility] TexasMAGNESIUM2020-10-21 09:26:00 Test Item Value Reference Range Interpretation Comments MAGNESIUM (test code = 1580574264) 1.7 mg/dL 1.7-2.4 Lab Interpretation (test code = Normal 89817-7) [facility] TexasPHOSPHORUS2020-10-21 09:26:00 Test Item Value Reference Range Interpretation Comments PHOSPHORUS (test code = 7070837707) 4.1 mg/dL 2.5-5 Lab Interpretation (test code = Normal 30294-5) [facility] TexasURIC [id number] 09:26:00 Test Item Value Reference Range Interpretation Comments URIC ACID (test code = 0528938666) 3.4 mg/dL 2.9-6 Lab Interpretation (test code = Normal 14279-2) [facility] WITH [id number] 08:58:00 Test Item Value Reference Range Interpretation [...] RDW-SD (test code = 47.2 fL 39-49.9 61176-7) RDW-CV (test code = 13.2 % 12-15.5 788-0) PLT (test code = See_Comment [Automated 777-3) message] The sy stem which generated this result transmitted reference range : 166 - 358 10*3/ ?L. The reference r luca was not used to interpret this result as normal/abnormal . MPV (test code = 8.7 fL 9.5-12.9 L 88196-4) NRBC/100 WBC (test See_Comment [Automat ed code = 3618089255) message] The system which generated this result transmitted reference range : 0.0 - 10.0 /100 WBCs. The refer ence range was not u sed to interpret th is result as normal/abnormal . NRBC x10^3 (test code <0.01 See_Comment [Auto mated = 0176157530) message] The s [employer]uk[employer] which generated this result transmitted reference range : 10*3/?L. The reference range was not used to interpret this result as normal/abnormal . GRAN MAT (NEUT) % 78.4 % (test code = 770-8) IMM GRAN % (test code 0.50 % = 6801794649) LYMPH % (test code = 12.5 % 736-9) MONO % (test code = 6.1 % 5905-5) EOS % (test code = 2.1 % 713-8) BASO % (test code = 0.4 % 706-2) GRAN MAT x10^3(ANC) 6.43 10*3/uL 1.88-7.09 (test code = 7207258927) IMM GRAN x10^3 (test 0.04 10*3/uL 0-0.06 code = 0190069388) LYMPH x10^3 (test code 1.02 10*3/uL 1.32-3.29 L = 731-0) MONO x10^3 (test code 0.50 10*3/uL 0.33-0.92 = 742-7) EOS x10^3 (test code = 0.17 10*3/uL 0.03-0.39 711-2) BASO x10^3 (test code 0.03 10*3/uL 0.01-0.07 = 704-7) Lab Interpretation Abnormal (test code = 05338-3) [facility] TexasVALPROIC ACID, [id number] 05:42:00 Test Item Value Reference Range Interpretation Comments Valproic Acid, Free <2.0 4-15 L (test code = 6111882697) KIM (test code = KIM) Toxic Range: ? Greater than 15 ug/mL Test developed and characteristics determined by [facility] Laboratory Services. Lab Interpretation Abnormal (test code = 81530-9) [facility] TexasHAV ANTIBODY (IGG AND IGM)2020-02-03 04:20:00 Test Item Value Reference Range Interpretation Comments HAV Total (test code Positive = 6881724876) HAVT Semi-Quantitative (test code = 1102528859) KIM (test code = KIM) Indicates past or present infection with HAV or exposure to HAV due to vaccination. [facility] SURFACE [id number] 04:12:00 Test Item Value Reference Range Interpretation Comments HBsAB (test code = Negative 7339578762) HBsAb mIU/mL Semi-Quantitative (test code = 2636935788) KIM (test code = Interpretation: KIM) ?Hepatitis B Surface Antibody ? Negative - Patient is considered to be not immune to infection with HBV. ? ? Positive - Anti-HBs detected at greater than or equal to 12 mIU/mL. ?Patient is considered to be immune to infection with HBV. ? [facility] TexasHCV [id number] 04:12:00 Test Item Value Reference Range Interpretation Comments HCV Ab (test code = 38570-5) Negative HCV Semi-Quantitative (test code = 91014-4) [facility] B SURFACE [id number] 03:55:00 Test Item Value Reference Range Interpretation Comments HBsAg Semi-Quantitative (test code = Negative Negative 5195-3) [facility] TexasPROCALCITONIN2020-10-21 03:54:00 Test Item Value Reference Range Interpretation Comments Procalcitonin (test 0.05 ng/mL <0.07 code = 1211494552) KIM (test code = KIM) INTERPRETATION OF [...] biotics/default.asp Lab Interpretation Normal (test code = 25152-7) [facility] TexasGLYCOSYLATED HEMOGLOBIN (A1C)2020-02-02 22:47:00 Test Item Value Reference Range Interpretation Comments HGB A1C (test code = 4.5 % 4-6 4548-4) KIM (test code = KIM) %A1C (NGSP) Interpretation (ADA)4.8-5.6 ? ? Normal or (Non-Diabetic Range)5.7-6.4 ? ? Increased Risk (Pre-Diabetic)>6.5 ?Diabetes Indicated Lab Interpretation Normal (test code = 12079-4) [facility] TexasVALPROIC ACID, [id number] 22:28:00 Test Item Value Reference Range Interpretation Comments VALPROIC A (test code = <10 50-100 L 6454718572) KIM (test code = KIM) Toxic Range: ?Greater than 100 ug/mL Lab Interpretation (test Abnormal code = 15486-8) [facility] TexasLIPID PANEL (74508)(TOTAL CHOLESTEROL, TRIGLYCERIDES, HDL)2020-02-02 21:23:00 Test Item Value Reference Range Interpretation Comments CHOL (test code = 343 mg/dL 120-200 H 1805667727) HDL (test code = 87 mg/dL >50 9177633554) HDLC RATIO (test code = See_Comment [Au tomated message] 1383320447) The system [employer] generated this result transmit gulshan reference range : <=4.5. The refe rence range was not u sed to interpret th is result as normal/abnormal . TRIG (test code = 131 mg/dL 30-170 2342150799) LDL CHOL (test code = 230 mg/dL See_Comment H [Auto mated message] 04299-8) The system [employer] generated this result transmit gulshan reference range : <=160. The refe rence range was not u sed to interpret th is result as normal/abnormal . VLDL (test code = 26 mg/dL 5-60 9793866889) Lab Interpretation (test Abnormal code = 03595-3) [facility] TexasPROTHROMBIN TIME / [id number] 21:16:00 Test Item Value Reference Range Interpretation Comments PROTIME PATIENT (test See_Comment [Auto mated message] code = 5964-2) The system [employer] generated this result transmitted ref erence range: 12.0 - 1 4.7 Seconds. The re ference range was not u sed to interpret this result as normal/abnor mal. INR (test code = 6301-6) Nor mal INR <1.1; Warfarin Therap eutic range 2.0 to 3. 0 or 2.5 to 3.5, dep ending upon the indica tions. Lab Interpretation (test Normal code = 26144-9) [facility] TexasCREATINE [id number] 21:15:00 Test Item Value Reference Range Interpretation Comments CK (test code = 4618088886) 37 U/L 33-194 Lab Interpretation (test code = Normal 77367-2) [facility] TexasLIPASE2020-10-20 12:34:00 Test Item Value Reference Range Interpretation Comments LIPASE (test code = 1613846929) 203 U/L 0-220 Lab Interpretation (test code = Normal 90788-6) [facility] TexasCOMP. METABOLIC PANEL (29644)2020-02-02 12:34:00 Test Item Value Reference Range Interpretation Comments NA (test code = 135 mmol/L 135-145 8990424384) K (test code = 3.5 mmol/L 3.5-5 4385322714) CL (test code = 103 mmol/L 98-108 6081865198) CO2 TOTAL (test code = 25 mmol/L 23-31 6050194676) AGAP (test code = 2-16 5874206847) BUN (test code = 8 mg/dL 7-23 6545408803) GLUCOSE (test code = 148 mg/dL 70-110 H 3939342700) CREATININE (test code = 0.55 mg/dL 0.5-1.04 8811169104) TOTAL BILI (test code = 1.2 mg/dL 0.1-1.1 H 0741472835) CALCIUM (test code = 9.4 mg/dL 8.6-10.6 4438503373) T PROTEIN (test code = 6.9 g/dL 6.3-8.2 5151314048) ALBUMIN (test code = 3.6 g/dL 3.5-5 4620010396) ALK PHOS (test code = 723 U/L 34-122 H 0710886910) ALTv (test code = 166 U/L 5-35 H 1742-6) AST(SGOT) (test code = 72 U/L 13-40 H 9659576305) eGFR Calculation mL/min/1.73m2 (Non-) (test code = 2691152122) eGFR Calculation mL/min/1.73m2 () (test code = 7477342516) KIM (test code = KIM) Association of [...] tests). Lab Interpretation Abnormal (test code = 83706-4) [facility] TexasLITHIUM2020-10-20 12:32:00 Test Item Value Reference Range Interpretation Comments [place] (test code = 0.4 mmol/L 0.6-1.2 L 6182906321) KIM (test code = KIM) Toxic Range: ? Greater than 1.2 mmol/L Lab Interpretation (test Abnormal code = 86209-9) [facility] TexasPOCT GLUCOSE (AUTOMATED)2020-02-02 11:34:00 Test Item Value Reference Range Interpretation Comments POCT GLU (test code = 8028949689) 138 mg/dL 70-110 H Lab Interpretation (test code = Abnormal 02344-5) [facility] TexasCOM. METABOLIC PANEL (83120)2020-02-02 10:51:00 Test Item Value Reference Range Interpretation Comments NA (test code = 129 mmol/L 135-145 L 8958703102) K (test code = 3.0 mmol/L 3.5-5 L 1440416969) CL (test code = 100 mmol/L 98-108 9465726380) CO2 TOTAL (test code = 22 mmol/L 23-31 L 2108166571) AGAP (test code = 2-16 8915877323) BUN (test code = 8 mg/dL 7-23 8374393747) GLUCOSE (test code = 632 mg/dL 70-110 HH 9803527128) CREATININE (test code = 0.54 mg/dL 0.5-1.04 2466264137) TOTAL BILI (test code = 1.0 mg/dL 0.1-1.8 9912375130) CALCIUM (test code = 7.9 mg/dL 8.6-10.6 L 5795583759) T PROTEIN (test code = 5.3 g/dL 6.3-8.2 L 6709512488) ALBUMIN (test code = 2.7 g/dL 3.5-5 L 0393607712) ALK PHOS (test code = 562 U/L 34-122 H 7625532910) ALTv (test code = 138 U/L 5-35 H 1742-6) AST(SGOT) (test code = 61 U/L 13-40 H 4964566957) eGFR Calculation mL/min/1.73m2 (Non-) (test code = 0694892551) eGFR Calculation mL/min/1.73m2 () (test code = 1025327259) KIM (test code = KIM) Association of [...] tests). Lab Interpretation Abnormal (test code = 74145-4) [facility] TexasLIPASE2020-10-20 10:40:00 Test Item Value Reference Range Interpretation Comments LIPASE (test code = 1788627211) 140 U/L 0-220 Lab Interpretation (test code = Normal 72091-0) [facility] TexasLITHIUM2020-10-20 10:37:00 Test Item Value Reference Range Interpretation Comments [place] (test code = 0.5 mmol/L 0.6-1.2 L 0634900829) KIM (test code = KIM) Toxic Range: ? Greater than 1.2 mmol/L Lab Interpretation (test Abnormal code = 34662-8) [facility] WITH [id number] 09:57:00 Test Item Value Reference Range Interpretation [...] RDW-SD (test code = 47.2 fL 39-49.9 36035-3) RDW-CV (test code = 13.1 % 12-15.5 788-0) PLT (test code = See_Comment [Automated 777-3) message] The sy stem which generated this result transmitted reference range : 166 - 358 10*3/ ?L. The reference r luca was not used to interpret this result as normal/abnormal . MPV (test code = 9.7 fL 9.5-12.9 98621-2) NRBC/100 WBC (test See_Comment [Automat ed code = 9090980975) message] The system which generated this result transmitted reference range : 0.0 - 10.0 /100 WBCs. The refer ence range was not u sed to interpret th is result as normal/abnormal . NRBC x10^3 (test code <0.01 See_Comment [Auto mated = 8662810563) message] The s ystem which generated this result transmitted reference range : 10*3/?L. The reference range was not used to interpret this result as normal/abnormal . GRAN MAT (NEUT) % 78.6 % (test code = 770-8) IMM GRAN % (test code 0.50 % = 2225084477) LYMPH % (test code = 13.1 % 736-9) MONO % (test code = 5.5 % 5905-5) EOS % (test code = 2.0 % 713-8) BASO % (test code = 0.3 % 706-2) GRAN MAT x10^3(ANC) 5.18 10*3/uL 1.88-7.09 (test code = 4647326409) IMM GRAN x10^3 (test 0.03 10*3/uL 0-0.06 code = 7780814532) LYMPH x10^3 (test code 0.86 10*3/uL 1.32-3.29 L = 731-0) MONO x10^3 (test code 0.36 10*3/uL 0.33-0.92 = 742-7) EOS x10^3 (test code = 0.13 10*3/uL 0.03-0.39 711-2) BASO x10^3 (test code <0.03 0.01-0.07 = 704-7) Lab Interpretation Abnormal (test code = 59776-1) [facility] TexasGRAM POSITIVE BLOOD PATHOGENS DNA [id number] 06:56:00 Test Item Value Reference Range Interpretation Comments Coagulase Negative Positive Negative, See A Staphylococcus (test Comment/Narrative code = 14812-5) KIM (test code = KIM) Coagulase negative [...] contact the Antimicrobial Stewardship Program with questions.Pager: ?[phone] Testing included eleven identification and three resistance marker targets. Lab Interpretation Abnormal (test code = 99952-7) [facility] TexasLAB ONLY COVID [id number] 20:46:00COVID DMT InterpretationInterpretation/Recommendations\\nTests (PCR) for Active Infection [...] test is performed there is approximately a ndh-fn-eabtt chance the patient had been infected and [...] and IgG antibodies, this may be the explanation.[facility] LABORATORY SERVICESCOVID CclqdcbXBNT-XcI-3 Rapid ID NOW (no units) ? ? Date ? Value ? 01/31/2020 ? Not Detected ? ? ? 08/21/2019 ? Not Detected ? [facility] SERVICESUnCall[facility] VENOUS BLOOD [id number] 19:37:00 Test Item Value Reference Range Interpretation Comments PH (test code = 7.32-7.42 L 0027630044) PCO2 SANDHYA (test code = See_Comment [Auto mated message] 5105919227) The system [employer] generated this result transmitted ref erence range: 41 - 51 mmHg. The reference r luca was not used to interpret this result as normal/abnor mal. PO2 SANDHYA (test code = See_Comment HH [Autom ated message] 3298956289) The system [employer] generated this result transmitted ref erence range: 25 - 40 mmHg. The reference r luca was not used to interpret this result as normal/abnor mal. HCO3 SANDHYA (test code = See_Comment L [Auto mated message] 8600463306) The system [employer] generated this result transmitted ref erence range: 24 - 28 mEq/L. The reference r luca was not used to interpret this result as normal/abnor mal. AC VBE(BEAKER) (test mEq/L code = 3177651487) Lab Interpretation (test Abnormal code = 87765-1) [facility] TexasUS ABDOMEN [id number] 17:02:17 No sonographic findings to explain patient's [...] Results portions of the IVC appear unremarkable. [facility], Radiant Results Inft User - 02/01/2020 12:03 [...] kidneys. No appreciable atrophyor cortical thinning. No hydronephrosis.[facility] TexasUrine [id number] 16:35:00 Test Item Value Reference Range Interpretation Comments URINE CULTURE (test No aerobic growth (< code = 630-4) 1000 CFU/mL) [facility] TexasDIFF CONSULT [id number] 15:41:00 MATURE LEUKOCYTES WITH REACTIVE LYMPHOCYTES, REACTIVE MONOCYTES AND OCCASIONAL TOXIC NEUTROPHILS. RARE HYPERSEGMENTED NEUTROPHILS. MACROCYTIC ANEMIA WITH POLYCHROMASIA AND POIKILOCYTOSIS INCLUDING BURRCELLS AND TARGET CELLS. THESE CHANGES ARE SUGGESTIVE OF EARLY VITAMIN B12 DEFICIENCY ANEMIA. AMPLE PLATELETS. [facility] TexasPOSD GLUCOSE (AUTOMATED)2020-02-01 13:06:00 Test Item Value Reference Range Interpretation Comments POCT GLU (test code = 1583589821) 104 mg/dL 70-110 Lab Interpretation (test code = Normal 64274-1) [facility] TexasCOMP. METABOLIC PANEL (99116)2020-02-01 13:00:00 Test Item Value Reference Range Interpretation Comments NA (test code = 139 mmol/L 135-145 4320038192) K (test code = 4.1 mmol/L 3.5-5 9764164726) CL (test code = 112 mmol/L 98-108 H 1325850083) CO2 TOTAL (test code = 20 mmol/L 23-31 L 7914131870) AGAP (test code = 2-16 9377862115) BUN (test code = 16 mg/dL 7-23 9445923200) GLUCOSE (test code = 99 mg/dL 70-110 4477941295) CREATININE (test code = 0.85 mg/dL 0.5-1.04 4071714598) TOTAL BILI (test code = 1.3 mg/dL 0.1-1.1 H 7929273749) CALCIUM (test code = 8.6 mg/dL 8.6-10.6 4282629562) T PROTEIN (test code = 6.2 g/dL 6.3-8.2 L 8684061554) ALBUMIN (test code = 3.2 g/dL 3.5-5 L 5365925444) ALK PHOS (test code = 646 U/L 34-122 H 8536578262) ALTv (test code = 209 U/L 5-35 H 1742-6) AST(SGOT) (test code = 110 U/L 13-40 H 2169216453) eGFR Calculation mL/min/1.73m2 (Non-) (test code = 1445494353) eGFR Calculation mL/min/1.73m2 () (test code = 7061388654) KIM (test code = KIM) Association of [...] tests). Lab Interpretation Abnormal (test code = 54071-0) [facility]2020[facility] 11:07:00 Test Item Value Reference Range Interpretation Comments LIPASE (test code = 1758048224) 353 U/L 0-220 H Lab Interpretation (test code = Abnormal 22463-0) [facility] TexasLITHIUM2020-10-19 11:05:00 Test Item Value Reference Range Interpretation Comments [place] (test code = 1.0 mmol/L 0.6-1.2 1910082027) KIM (test code = KIM) Toxic Range: ? Greater than 1.2 mmol/L Lab Interpretation (test Normal code = 63160-8) [facility] with [id number] 10:56:00 Test Item Value Reference Range Interpretation [...] RDW-SD (test code = 49.7 fL 39-49.9 44656-5) RDW-CV (test code = 13.2 % 12-15.5 788-0) PLT (test code = See_Comment L [Automated 777-3) message] The sy stem which generated this result transmitted reference range : 166 - 358 10*3/ ?L. The reference r luca was not used to interpret this result as normal/abnormal . MPV (test code = 9.7 fL 9.5-12.9 08118-5) NRBC/100 WBC (test See_Comment [Automat ed code = 3127286309) message] The system which generated this result transmitted reference range : 0.0 - 10.0 /100 WBCs. The refer ence range was not u sed to interpret th is result as normal/abnormal . NRBC x10^3 (test code <0.01 See_Comment [Auto mated = 9246957580) message] The s ystem which generated this result transmitted reference range : 10*3/?L. The reference range was not used to interpret this result as normal/abnormal . GRAN MAT (NEUT) % 79.3 % (test code = 770-8) IMM GRAN % (test code 0.40 % = 3106549684) LYMPH % (test code = 11.4 % 736-9) MONO % (test code = 6.1 % 5905-5) EOS % (test code = 2.6 % 713-8) BASO % (test code = 0.2 % 706-2) GRAN MAT x10^3(ANC) 4.30 10*3/uL 1.88-7.09 (test code = 6051002234) IMM GRAN x10^3 (test <0.03 0-0.06 code = 2840952412) LYMPH x10^3 (test code 0.62 10*3/uL 1.32-3.29 L = 731-0) MONO x10^3 (test code 0.33 10*3/uL 0.33-0.92 = 742-7) EOS x10^3 (test code = 0.14 10*3/uL 0.03-0.39 711-2) BASO x10^3 (test code <0.03 0.01-0.07 = 704-7) Lab Interpretation Abnormal (test code = 76633-1) [facility] - [id number] 09:27:00 Test Item Value Reference Range Interpretation Comments RPR (Qualitative) (test code = Nonreactive Nonreactive 61324-0) Lab Interpretation (test code = Normal 02968-6) [facility] TexasVITAMIN B12, [id number] 06:47:00 Test Item Value Reference Range Interpretation Comments VIT B12 (test code = 257 pg/mL 240-930 4893273330) KIM (test code = KIM) Biotin has been reported to cause a positive bias, interpret results relative to patient's use of biotin. Lab Interpretation (test Normal code = 31398-7) [facility] TexasFOLATE2020-10-19 06:46:00 Test Item Value Reference Range Interpretation Comments FOLATE SER (test code = 15.7 ng/mL 3-20 Biot in has been 0807552950) reported to cau se a positive bias, interpret resul ts relative to patient's use o f biotin. Lab Interpretation (test Normal code = 12231-9) [facility] TexasOSMOLALITY [id number] 05:47:00 Test Item Value Reference Range Interpretation Comments OSMOLALITY (test code = See_Comment [Au tomated message] 8641747386) The system [employer] generated this result transmitted ref erence range: 278 - 30 5 mOsm/kg. The re ference range was not u sed to interpret this result as normal/abnor mal. Lab Interpretation (test Normal code = 36947-7) [facility] TexasFERRITIN [id number] 01:01:00 Test Item Value Reference Range Interpretation Comments FERRITIN (test code = 234.0 ng/mL 11-264 4242209823) KIM (test code = KIM) Biotin has been reported to cause a negative bias, interpret results relative to patient's use of biotin. Lab Interpretation (test Normal code = 15182-7) [facility] TexasTHYROID STIMULATING [id number] 23:14:00 Test Item Value Reference Range Interpretation Comments TSH (test code = See_Comment Biotin has been 6069522172) reported to cau se a negative bias, interpret resul ts relative to pat ient's use of biotin. [Automated mess age] The system [employer] generated this result transmitted ref erence range: 0.45 - 4 .70 mIU/L. The refe rence range was not u sed to interpret this result as normal/abnor mal. Lab Interpretation (test Normal code = 21868-8) [facility] TexasIRON [id number] 22:39:00 Test Item Value Reference Range Interpretation Comments IRON (test code = 68 ug/dL 50-160 Slight hem olysis 3863219449) TIBC (test code = 271 ug/dL 250-410 8454729156) % FE SAT (test code = 25 % 20-50 1020203998) Lab Interpretation (test Normal code = 02940-5) [facility] TexasRETICULOCYTES [id number] 21:52:00 Test Item Value Reference Range Interpretation Comments RETIC Count Automated 2.17 % 0.51-1.9 H (test code = 0532187897) RETIC Absolute Count See_Comment [Autom ated message] (test code = 3278228903) The system which generated this result transmitted ref erence range: 0.0230 - 0.0950 10*6/?L. The reference range was not used to int erpret this result as normal/abnormal . IRF % (test code = 9.20 % 2.1-12.6 4480566729) RETIC-HE (test code = 35.1 pg 28.1-35.8 8707776531) Lab Interpretation (test Abnormal code = 28096-2) [facility] TexasABG+COOX+NA+K+GLU+CA2+2020-01-31 20:41:00 Test Item Value Reference Range Interpretation Comments PH (test code = 2) 7.35-7.45 L PCO2 (test code = See_Comment H [Automate d message] 5029787590) The system [employer] generated this result transmit gulshan reference range : 35 - 45 mmHg. The reference range was not used to interpret this result as normal/abnormal . PO2 (test code = See_Comment L [Automated message] 2007720722) The system [employer] generated this result transmit gulshan reference range : 80 - 100 mmHg. The reference range was not used to interpret this result as normal/abnormal . HCO3 (test code = See_Comment L [Automate d message] 5156776712) The system [employer] generated this result transmit gulshan reference range : 22 - 26 mEq/L. The reference range was not used to interpret this result as normal/abnormal . BE (test code = See_Comment L [Automated message] 1948058217) The system [employer] generated this result transmit gulshan reference range : -3.0 - 3.0 mEq/ L. The reference r luca was not used to interpret this result as normal/abnormal . THB (test code = 9.8 g/dL 12-16 L 6607845937) %O2HB (test code = 94.0 % 94-99 8790210052) %COHB ART (test code = 0.0 % 0-1.5 9382261976) %METHB ART (test code = 0.3 % 0.4-1.5 L 6602408767) VOL%O2 ART (test code = 13.0 % 15-23 L 2272863119) NA (test code = 137 mmol/L 135-145 1878262762) K+ (test code = 4.0 mmol/L 3.5-5 0514584003) AC CA IONZ (test code = 5.10 mg/dL 4.5-5.3 8280664844) GLUCOSE (test code = 100 mg/dL 70-110 8482890817) Lab Interpretation Abnormal (test code = 78393-9) [facility] TexasVALPROIC ACID, [id number] 19:51:00 Test Item Value Reference Range Interpretation Comments VALPROIC A (test code = <10 50-100 L 9510114317) KIM (test code = KIM) Toxic Range: ?Greater than 100 ug/mL Lab Interpretation (test Abnormal code = 01856-7) [facility] TexasACETAMINOPHEN2020-10-18 19:42:00 Test Item Value Reference Range Interpretation Comments ACETAMINOP (test code = <10.0 10-30 L 1769310081) KIM (test code = KIM) Toxic: Greater than 200 ug/mL @ 4 hour post ingestion or greater than 50 ug/mL @ 12 hour post ingestion Lab Interpretation (test Abnormal code = 33886-0) [facility] TexasLITHIUM2020-10-18 19:41:00 Test Item Value Reference Range Interpretation Comments [place] (test code = 1.4 mmol/L 0.6-1.2 H 0518693913) KIM (test code = KIM) Toxic Range: ? Greater than 1.2 mmol/L Lab Interpretation (test Abnormal code = 65566-4) [facility] TexasSALICYLATE2020-10-18 19:41:00 Test Item Value Reference Range Interpretation Comments SALICYLATE (test code <10 mg/L = 9008175215) KIM (test code = KIM) Therapeutic Range: ? Analgesic and Antipyretic Use ? 20-100 mg/L ? ? Anti-Inflammatory Use ? 100-250 mg/L Toxic Range: ? Greater than 300 mg/L [facility] TexasChes 1 [id number] 17:46:20Impression: No acute cardiopulmonary disease. RL: ?2601 AFC: ?[id number] Chest, one view History: ?AMS . Altered state of awareness Ordering Physician: ?KIRSTIN RON Findings: The lungs are clear without focal pneumonic consolidation,pleural effusion, or pneumothorax. ?The heart size is normal. ?Themediastinal contours are normal. ?No pulmonary edema. Several scatteredcalcified granulomas noted within both lungs. [facility], Radiant Results Inft User - 01/31/2020 12:47 PM CDTChest, one viewHistory: AMS . Altered state of awarenessOrdering Physician: KISRTIN RON Findings: The lungs are clear without focal pneumonic consolidation,pleural effusion, or pneumothorax. The heart size is normal. Themediastinal contours are normal. No pulmonary edema. Several scatteredcalcified granulomas noted within both lungs.IMPRESSIONImpression: No acute cardiopulmonary disease. RL: 2601AFC: [id number] signed by Gatito Saul MD at 01/31/2020 12:46 PMD[facility] of TexasAbdomen 1 [id number] 17:42:04 1. Nonobstructive intestinal bowel gas pattern. RL: ?2601 AFC: ?[id number] CLINICAL INFORMATION: Abdominal pain. Altered state of awareness Ordering Physician: ?KIRSTIN RON FINDINGS: Supine view of the abdomen was submitted on 3 separate images.Small amount of gas within the stomach. Bladder surgically absent. Gas andstool noted in the colon. No dilated loops of small bowel. [facility], Radiant Results Inft User - 01/31/2020 12:43 PM CDTCLINICAL INFORMATION: Abdominal pain. Altered state of awarenessOrdering Physician: KIRSTIN RON FINDINGS: Supine view of the abdomen was submitted on 3 separate images.Small amount of gas within the stoma ch. Bladder surgically absent. Gas andstool noted in the colon. No dilated loops of small bowel.IMPRESSION1. Nonobstructive intestinal bowel gas pattern.RL: 2601AFC: [id number] signed by Gatito Saul MD at 01/31/2020 12:42 PM [facility] TexasETHANOL2020-10-18 17:40:00 Test Item Value Reference Range Interpretation Comments ALCOHOL (test code = <10 mg/dL 7853355801) KIM (test code = KIM) <10 Unxmjajy60-289 Toxic>100 Depression of REPAIR TECHNICIAN>400 Fatalities Reported [facility] TexasCREATINE [id number] 17:38:00 Test Item Value Reference Range Interpretation Comments CK (test code = 8912199573) 46 U/L 33-194 Slight hemolysis Lab Interpretation (test code Normal = 74811-3) [facility] TexasCT Head W/O Dqxjqtnm8328-51-69 17:05:24 Impression: 1. ?No acute intracranial process. [...] is withinnormal limits without evidence for fracture. [facility], Radiant Results Inft User - 01/31/2020 12:06 [...] No acute intracranial process.2. Small right mastoid effusion.[facility] - DRUG SCREEN [id number] 16:57:00 Test Item Value Reference Range Interpretation Comments BENZO U (test code = Presumptive Negative A 5989412431) Positive SLIM U (test code = Negative Negative 9150870970) AMPHET (test code = Negative Negative 8322473243) THC (test code = Negative Negative 3323181338) METHADONE (test code Negative Negative = 9606842069) Meth U (test code = Negative Negative 7511259487) OPIATES (test code = Negative Negative 8126575993) Cocaine Metabolite Negative Negative (test code = 3469116692) PROPOXY (test code = Negative Negative 0418166299) Tric U (test code = Presumptive Negative A Confirma tion of 3434067080) Positive Presumptive Positive TCA result requires physician order and this will b e sent to referen ce lab. PCP (test code = Negative Negative 8058719729) OXYCOD (test code = Negative Negative 6843164098) KIM (test code = Urine Drug Cutoff [...] testing). Lab Interpretation Abnormal (test code = 92818-6) [facility] TexasUrinalysis2020-10-18 16:54:00 Test Item Value Reference Range Interpretation Comments APPEARANCE (test code = Hazy Clear A 9981676469) COLOR (test code = Lisa Yellow A 9889832612) PH (test code = 4.8-8.0 0624206177) SP GRAVITY (test code = 1.003-1.030 0873414725) GLU U QUAL (test code = Normal Normal 5391679033) BLOOD (test code = Negative Negative 7320439255) KETONES (test code = Negative Negative 8551482023) PROTEIN (test code = 30 mg/dL Negative A 2887-8) UROBILIN (test code = 4.0 mg/dL Normal A 3603086461) BILIRUBIN (test code = Negative Negative 8869434729) NITRITE (test code = Negative Negative 5628402120) LEUK NICHOLE (test code = 25/uL Negative A 2298488737) RBC/HPF (test code = See_Comment [Autom ated message] 2694350455) The system [employer] generated this result transmit gulshan reference range : 0 - 3 HPF. The refe rence range was not u sed to interpret th is result as normal/abnormal . WBC/HPF (test code = See_Comment H [Autom ated message] 9577173814) The system [employer] Pattern[employer] generated this result transmit gulshan reference range : 0 - 5 HPF. The refe rence range was not u sed to interpret th is result as normal/abnormal . BACTERIA (test code = Few Negative A 9425883237) MUCOUS (test code = Moderate Negative LPF A 3731539604) SQ EPITH (test code = HPF 3666677074) HYAL CAST (test code = See_Comment H [Aut omated message] 5954642860) The system [employer] Pattern[employer] generated this result transmit gulshan reference range : <=2 LPF. The refere nce range was not u sed to interpret th is result as normal/abnormal . GRAN CASTS (test code = See_Comment H [Au tomated message] 9425898618) The system [employer] Pattern[employer] generated this result transmit gulshan reference range : <=1 LPF. The refere nce range was not u sed to interpret th is result as normal/abnormal . Lab Interpretation (test Abnormal code = 23794-2) [facility] TexasCOVID-19 (ID NOW RAPID TESTING)2020-01-31 16:39:00 Test Item Value Reference Range Interpretation Comments SARS-CoV-2 Rapid ID NOW Not Detected Not Detected (test code = 35144-6) KIM (test code = KIM) ID NOW COVID-19 Assay is an isothermal nucleic acid amplification test intended for the qualitative detection of nucleic acid from SARS-CoV-2 viral RNA in nasopharyngeal (ENVELOPE MACHINE ADJUSTER) specimens. It is used under Emergency Use [...] indicated. Lab Interpretation Normal (test code = 97061-5) [facility] TexasJunliza [id number] 16:38:00 Test Item Value Reference Range Interpretation Comments TROPONIN I (test <0.012 See_Comment [Automated code = 4170550169) message] The system which generated this result [...] ? Lab Interpretation Normal (test code = 73003-8) [facility] TexasN-TERMINAL [id number] 16:34:00 Test Item Value Reference Range Interpretation Comments NT-proBNP (test code 283 pg/mL See_Comment H [Autom ated = 3559128414) message] The system which generated this result transmitted reference range : <=125. The reference range was not used to interpret this result as normal/abnormal . KIM (test code = KIM) Biotin has been reported to cause a negative bias, interpret results relative to patient's use of biotin. Lab Interpretation Abnormal (test code = 69149-6) [facility] TexasBasi Metabolic Panel (NA, K, CL, CO2, GLUCOSE, BUN, CREATININE, CA)2020-01-31 16:26:00 Test Item Value Reference Range Interpretation Comments NA (test code = 134 mmol/L 135-145 L 0114331081) K (test code = 4.9 mmol/L 3.5-5 8210878265) CL (test code = 107 mmol/L 98-108 2219014493) CO2 TOTAL (test code = 19 mmol/L 23-31 L 0051856742) AGAP (test code = 2-16 8232546710) BUN (test code = 30 mg/dL 7-23 H 7985101985) GLUCOSE (test code = 106 mg/dL 70-110 7999871143) CREATININE (test code = 2.21 mg/dL 0.5-1.04 H 1279778536) CALCIUM (test code = 9.5 mg/dL 8.6-10.6 1413765163) eGFR Calculation mL/min/1.73m2 (Non-) (test code = 1721184616) eGFR Calculation mL/min/1.73m2 () (test code = 4959260640) KIM (test code = KIM) Association of [...] tests). Lab Interpretation Abnormal (test code = 95517-4) [facility] TexasHepatic Function Panel (ALB, T.PRO, BILI T, BU/BC, ALT, AST, ALK PHOS)2020-01-31 16:26:00 Test Item Value Reference Range Interpretation Comments TOTAL BILI (test code = 8000099254) 1.5 mg/dL 0.1-1.1 H BILI UNCON (test code = 9143294564) 0.4 mg/dL 0.1-1.1 BILI CONJ (test code = 5444201148) 0.0 mg/dL 0-0.3 T PROTEIN (test code = 4326926923) 8.0 g/dL 6.3-8.2 ALBUMIN (test code = 2135058994) 4.0 g/dL 3.5-5 ALK PHOS (test code = 7769312950) 714 U/L 34-122 H ALTv (test code = 1742-6) 352 U/L 5-35 H AST(SGOT) (test code = 6741863037) 256 U/L 13-40 H Lab Interpretation (test code = Abnormal 95462-1) [facility] TexasLipase [id number] 16:26:00 Test Item Value Reference Range Interpretation Comments LIPASE (test code = 6576928026) 410 U/L 0-220 H Lab Interpretation (test code = Abnormal 79541-7) [facility] TexasAMMONIA, [id number] 16:25:00 Test Item Value Reference Range Interpretation Comments AMMONIA (test code = 32 umol/L 9-33 Slight hemolysis 1775178305) Lab Interpretation (test Normal code = 69080-8) [facility] TexasCBC with Mbwzxmatrvwx7142-84-14 16:13:00 Test Item Value Reference Range Interpretation [...] (test code = 51.4 fL 39-49.9 H 99110-6) RDW-CV (test code = 13.7 % 12-15.5 788-0) PLT (test code = See_Comment [Automated 777-3) message] The sy stem which generated this result transmitted reference range : 166 - 358 10*3/ ?L. The reference r luca was not used to interpret this result as normal/abnormal . MPV (test code = 10.3 fL 9.5-12.9 97411-6) NRBC/100 WBC (test See_Comment [Automat ed code = 0504508698) message] The system which generated this result transmitted reference range : 0.0 - 10.0 /100 WBCs. The refer ence range was not u sed to interpret th is result as normal/abnormal . NRBC x10^3 (test code <0.01 See_Comment [Auto mated = 2157009497) message] The s ystem which generated this result transmitted reference range : 10*3/?L. The reference range was not used to interpret this result as normal/abnormal . GRAN MAT (NEUT) % 77.1 % (test code = 770-8) IMM GRAN % (test code 0.40 % = 6777784982) LYMPH % (test code = 12.2 % 736-9) MONO % (test code = 5.7 % 5905-5) EOS % (test code = 4.3 % 713-8) BASO % (test code = 0.3 % 706-2) GRAN MAT x10^3(ANC) 5.97 10*3/uL 1.88-7.09 (test code = 3545741938) IMM GRAN x10^3 (test 0.03 10*3/uL 0-0.06 code = 4156152856) LYMPH x10^3 (test code 0.94 10*3/uL 1.32-3.29 L = 731-0) MONO x10^3 (test code 0.44 10*3/uL 0.33-0.92 = 742-7) EOS x10^3 (test code = 0.33 10*3/uL 0.03-0.39 711-2) BASO x10^3 (test code <0.03 0.01-0.07 = 704-7) Lab Interpretation Abnormal (test code = 95103-3) [facility] TexasLactic Acid Whole [id number] 16:03:00 Test Item Value Reference Range Interpretation Comments LACTIC ACID (test code = 1.03 mmol/L 0.3-2.6 5727463213) Lab Interpretation (test code = Normal 81117-5) [facility] TexasCT ABDOMEN PELVIS W [id number] 23:00:141. ?Mild circumferential urinary bladder wall thickening [...] the pancreatic duct, unchanged since February2019. Recommend MRI/MRCP.[facility] TexasElli [id number] 21:36:00 Test Item Value Reference Range Interpretation Comments TROPONIN I (test <0.012 See_Comment [Automated code = 8486505143) message] The system which generated this result [...] ? Lab Interpretation Normal (test code = 31678-5) [facility] TexasUrinalysis2020-09-04 21:30:00 Test Item Value Reference Range Interpretation Comments APPEARANCE (test code = Clear Clear 0926147539) COLOR (test code = Yellow Yellow 0774112592) PH (test code = 4.8-8.0 0099923973) SP GRAVITY (test code = 1.003-1.030 7026046119) GLU U QUAL (test code = Normal Normal 4618552278) BLOOD (test code = Negative Negative 2045222610) KETONES (test code = Negative Negative 0257636330) PROTEIN (test code = Negative Negative 2887-8) UROBILIN (test code = 4.0 mg/dL Normal A 9932103017) BILIRUBIN (test code = Negative Negative 8847306162) NITRITE (test code = Negative Negative 8956515991) LEUK NICHOLE (test code = Negative Negative 2954129415) RBC/HPF (test code = See_Comment [Autom ated message] 0819807967) The system [employer] generated this result transmit gulshan reference range : 0 - 3 HPF. The refe rence range was not u sed to interpret th is result as normal/abnormal . WBC/HPF (test code = See_Comment [Autom ated message] 9224744912) The system whic h generated this result transmit gulshan reference range : 0 - 5 HPF. The refe rence range was not u sed to interpret th is result as normal/abnormal . BACTERIA (test code = Few Negative A 3111744970) MUCOUS (test code = Slight Negative LPF A 9894248129) SQ EPITH (test code = HPF 5809358013) HYAL CAST (test code = See_Comment [Aut omated message] 6700979041) The system ic h generated this result transmit gulshan reference range : <=2 LPF. The refere nce range was not u sed to interpret th is result as normal/abnormal . Lab Interpretation (test Abnormal code = 80620-1) [facility] with Dccbwfdfzgyg9720-70-30 21:29:00 Test Item Value Reference Range Interpretation [...] (test code = 54.6 fL 39-49.9 H 42821-5) RDW-CV (test code = 14.9 % 12-15.5 788-0) PLT (test code = See_Comment L [Automated 777-3) message] The sy stem which generated this result transmitted reference range : 166 - 358 10*3/ ?L. The reference r luca was not used to interpret this result as normal/abnormal . MPV (test code = 9.5 fL 9.5-12.9 01461-8) IPF % (test code = 1.5 % 1.3-7.7 Platelet count 3134557720) measured by fluorescence method. NRBC/100 WBC (test See_Comment [Automat ed code = 2428534547) message] The system which generated this result transmitted reference range : 0.0 - 10.0 /100 WBCs. The refer ence range was not u sed to interpret th is result as normal/abnormal . NRBC x10^3 (test code <0.01 See_Comment [Auto mated = 8095856478) message] The s ystem which generated this result transmitted reference range : 10*3/?L. The reference range was not used to interpret this result as normal/abnormal . GRAN MAT (NEUT) % 64.0 % (test code = 770-8) IMM GRAN % (test code 1.00 % = 8861926109) LYMPH % (test code = 22.5 % 736-9) MONO % (test code = 11.0 % 5905-5) EOS % (test code = 1.0 % 713-8) BASO % (test code = 0.5 % 706-2) GRAN MAT x10^3(ANC) 2.61 10*3/uL 1.88-7.09 (test code = 7720281267) IMM GRAN x10^3 (test 0.04 10*3/uL 0-0.06 code = 8450289462) LYMPH x10^3 (test code 0.92 10*3/uL 1.32-3.29 L = 731-0) MONO x10^3 (test code 0.45 10*3/uL 0.33-0.92 = 742-7) EOS x10^3 (test code = 0.04 10*3/uL 0.03-0.39 711-2) BASO x10^3 (test code <0.03 0.01-0.07 = 704-7) Lab Interpretation Abnormal (test code = 78703-2) [facility] Metabolic Panel (NA, K, CL, CO2, GLUCOSE, BUN, CREATININE, CA)2019-12-18 21:25:00 Test Item Value Reference Range Interpretation Comments NA (test code = 138 mmol/L 135-145 6441493234) K (test code = 4.8 mmol/L 3.5-5 4923442112) CL (test code = 104 mmol/L 98-108 2598506978) CO2 TOTAL (test code = 27 mmol/L 23-31 5231401278) AGAP (test code = 2-16 8173314308) BUN (test code = 12 mg/dL 7-23 2180488942) GLUCOSE (test code = 101 mg/dL 70-110 6195212489) CREATININE (test code 0.70 mg/dL 0.5-1.04 = 3663200540) CALCIUM (test code = 9.3 mg/dL 8.6-10.6 0143894882) eGFR Calculation mL/min/1.73m2 (Non-) (test code = 4559443171) eGFR Calculation mL/min/1.73m2 () (test code = 0057541268) KIM (test code = KIM) Association of [...] or urine or abnormalities in imaging tests). [facility] (ALB, T.PRO, BILI T, BU/BC, ALT, AST, ALK PHOS)2019-12-18 21:25:00 Test Item Value Reference Range Interpretation Comments TOTAL BILI (test code = 4037371575) 1.0 mg/dL 0.1-1.1 BILI UNCON (test code = 4070844876) 0.6 mg/dL 0.1-1.1 BILI CONJ (test code = 1853509877) 0.0 mg/dL 0-0.3 T PROTEIN (test code = 6083450175) 7.8 g/dL 6.3-8.2 ALBUMIN (test code = 1566780993) 4.3 g/dL 3.5-5 ALK PHOS (test code = 4425795678) 580 U/L 34-122 H ALTv (test code = 1742-6) 199 U/L 5-35 H AST(SGOT) (test code = 0162133325) 215 U/L 13-40 H Lab Interpretation (test code = Abnormal 31884-1) [facility] Texas[facility] [id number] 21:25:00 Test Item Value Reference Range Interpretation Comments LIPASE (test code = 2762973185) 267 U/L 0-220 H Lab Interpretation (test code = Abnormal 54872-8) [facility] TexasXR CHEST 1 VW [id number] 02:17:38 No findings suggestive of COVID-19 pneumonia. Disclaimer: Generally, the findings on chest imaging in COVID-19 are notspecific, and overlap with other infections, including influenza, H1N1,SARS and MERS.According to the Centers for Disease Control (CDC) and the [employer], viral testing remains the only [...] for Disease Control (CDC) and the [employer], viral testing remains the only specific method of diagnosiseven if CXR or CT findings are suggestive of COVID-19. Preliminary Report Dictated by Resident: Abe Vasquez, Ritchie Hollins MD., have reviewed this study and agree with the abovereport.[facility] CORONAVIRUS COVID-19 [id number] 02:11:00 Test Item Value Reference Range Interpretation Comments SARS-CoV-2 (test code = Not Detected Not Detected 99133-9) KIM (test code = KIM) ID NOW COVID-19 Assay is an isothermal nucleic acid amplification test intended for the qualitative detection of nucleic acid from SARS-CoV-2 viral RNA in nasopharyngeal ([employer]) specimens. It is used under Emergency Use [...] indicated. Lab Interpretation Normal (test code = 36810-6) [facility] TexasTROPONIN [id number] 01:42:00 Test Item Value Reference Range Interpretation Comments TROPONIN I (test <0.012 See_Comment [Automated code = 4067790788) message] The system which generated this result [...] ? Lab Interpretation Normal (test code = 35466-0) [facility] TexasCOMP. METABOLIC PANEL (98711)2019-08-22 01:30:00 Test Item Value Reference Range Interpretation Comments NA (test code = 142 mmol/L 135-145 9520368817) K (test code = 4.1 mmol/L 3.5-5 9177025820) CL (test code = 106 mmol/L 98-108 1373453619) CO2 TOTAL (test code = 28 mmol/L 23-31 4789598462) AGAP (test code = 2-16 0180797721) BUN (test code = 16 mg/dL 7-23 0313021298) GLUCOSE (test code = 141 mg/dL 70-110 H 4124571102) CREATININE (test code = 0.75 mg/dL 0.5-1.04 9759354166) TOTAL BILI (test code = 0.8 mg/dL 0.1-1.3 8298489199) CALCIUM (test code = 9.6 mg/dL 8.6-10.6 8969350573) T PROTEIN (test code = 7.8 g/dL 6.3-8.2 5070950546) ALBUMIN (test code = 4.1 g/dL 3.5-5 8342304295) ALK PHOS (test code = 664 U/L 34-122 H 1675322375) ALTv (test code = 82 U/L 5-35 H 1742-6) AST(SGOT) (test code = 111 U/L 13-40 H 7930429728) eGFR Calculation mL/min/1.73m2 (Non-) (test code = 5668453614) eGFR Calculation mL/min/1.73m2 () (test code = 2058577880) KIM (test code = KIM) Association of [...] tests). Lab Interpretation Abnormal (test code = 96567-1) [facility] TexasLIPASE, [id number] 01:30:00 Test Item Value Reference Range Interpretation Comments LIPASE (test code = 4400459292) 87 U/L 0-220 Lab Interpretation (test code = Normal 95974-6) [facility] TexasaPTT2020-05-09 01:29:00 Test Item Value Reference Range Interpretation Comments APTT Patient (test See_Comment [Automat ed code = 3173-2) message] The system which generated this result transmitted reference range : 23 - 38 Seconds . The reference range was not used to interpr et this result as normal/abnormal . KIM (test code = KIM) The [facility] patient population mean normal value for aPTT is 30 seconds. Lab Interpretation Normal (test code = 00866-2) [facility] TexasPROTHROMBIN TIME / [id number] 01:27:00 Test Item Value Reference Range Interpretation [...] tions. Lab Interpretation (test Normal code = 82630-4) [facility] TexasURINALYSIS2020-05-09 01:25:00 Test Item Value Reference Range Interpretation Comments APPEARANCE (test code = Hazy Clear A 6004397315) COLOR (test code = Lisa Yellow A 3382745037) PH (test code = 4.8-8.0 1390825846) SP GRAVITY (test code = 1.003-1.030 3905034178) GLU U QUAL (test code = Normal Normal 1671738789) BLOOD (test code = Negative Negative 2220824020) KETONES (test code = Negative Negative 4631730737) PROTEIN (test code = 30 mg/dL Negative A 2887-8) UROBILIN (test code = 4.0 mg/dL Normal A 0918374416) BILIRUBIN (test code = Negative Negative 1620113470) NITRITE (test code = Positive Negative A 6395620043) LEUK NICHOLE (test code = 500/uL Negative A 5217272436) RBC/HPF (test code = See_Comment H [Autom ated message] 5309149837) The system [employer] generated this result transmit gulshan reference range : 0 - 3 HPF. The refe rence range was not u sed to interpret th is result as normal/abnormal . WBC/HPF (test code = See_Comment H [Autom ated message] 7443790002) The system [employer] generated this result transmit gulshan reference range : 0 - 5 HPF. The refe rence range was not u sed to interpret th is result as normal/abnormal . BACTERIA (test code = Many Negative A 6350712483) MUCOUS (test code = Moderate Negative LPF A 7341767780) SQ EPITH (test code = HPF 2077245068) Lab Interpretation (test Abnormal code = 33647-5) [facility] WITH [id number] 01:18:00 Test Item Value Reference Range Interpretation [...] RDW-SD (test code = 44.3 fL 39-49.9 85912-9) RDW-CV (test code = 12.6 % 12-15.5 788-0) PLT (test code = See_Comment [Automated 777-3) message] The sy stem which generated this result transmitted reference range : 166 - 358 10*3/ ?L. The reference r luca was not used to interpret this result as normal/abnormal . MPV (test code = 9.1 fL 9.5-12.9 L 34435-7) NRBC/100 WBC (test See_Comment [Automat ed code = 1556256466) message] The system which generated this result transmitted reference range : 0.0 - 10.0 /100 WBCs. The refer ence range was not u sed to interpret th is result as normal/abnormal . NRBC x10^3 (test code <0.01 See_Comment [Auto mated = 1966612876) message] The s ystem which generated this result transmitted reference range : 10*3/?L. The reference range was not used to interpret this result as normal/abnormal . GRAN MAT (NEUT) % 71.0 % (test code = 770-8) IMM GRAN % (test code 1.70 % = 1839283529) LYMPH % (test code = 16.1 % 736-9) MONO % (test code = 9.8 % 5905-5) EOS % (test code = 1.1 % 713-8) BASO % (test code = 0.3 % 706-2) GRAN MAT x10^3(ANC) 2.47 10*3/uL 1.88-7.09 (test code = 1127168016) IMM GRAN x10^3 (test 0.06 10*3/uL 0-0.06 code = 9550252217) LYMPH x10^3 (test code 0.56 10*3/uL 1.32-3.29 L = 731-0) MONO x10^3 (test code 0.34 10*3/uL 0.33-0.92 = 742-7) EOS x10^3 (test code = 0.04 10*3/uL 0.03-0.39 711-2) BASO x10^3 (test code <0.03 0.01-0.07 = 704-7) Lab Interpretation Abnormal (test code = 57540-5) [facility] TexasElli [id number] 23:39:00 Test Item Value Reference Range Interpretation Comments TROPONIN I (test 0.005 ng/mL See_Comment [Automated code = 7688599193) message] The system which generated this result [...] ? Lab Interpretation Normal (test code = 96665-1) [facility] (NA, K, CL, CO2, GLUCOSE, BUN, CREATININE, CA)2019-06-25 23:27:00 Test Item Value Reference Range Interpretation Comments NA (test code = 138 mmol/L 135-145 3904732692) K (test code = 4.3 mmol/L 3.5-5 6415803798) CL (test code = 103 mmol/L 98-108 2326622428) CO2 TOTAL (test code = 27 mmol/L 23-31 0712519316) AGAP (test code = 2-16 5984401647) BUN (test code = 16 mg/dL 7-23 2340435300) GLUCOSE (test code = 106 mg/dL 70-110 1770614590) CREATININE (test code 0.66 mg/dL 0.5-1.04 = 4255867556) CALCIUM (test code = 9.1 mg/dL 8.6-10.6 4404808236) eGFR Calculation mL/min/1.73m2 (Non-) (test code = 2515048003) eGFR Calculation mL/min/1.73m2 () (test code = 4156776281) KIM (test code = KIM) Association of [...] or urine or abnormalities in imaging tests). [facility] TexasLipase [id number] 23:27:00 Test Item Value Reference Range Interpretation Comments LIPASE (test code = 0283112018) 55 U/L 0-220 Lab Interpretation (test code = Normal 06669-1) [facility] TexasHep[facility] Function Panel (ALB, T.PRO, BILI T, BU/BC, ALT, AST, ALK PHOS)2019-06-25 23:27:00 Test Item Value Reference Range Interpretation Comments TOTAL BILI (test code = 0830875948) 1.0 mg/dL 0.1-1.1 BILI UNCON (test code = 3852645588) 0.2 mg/dL 0.1-1.1 BILI CONJ (test code = 8021272428) 0.0 mg/dL 0-0.3 T PROTEIN (test code = 0226997834) 7.8 g/dL 6.3-8.2 ALBUMIN (test code = 8127667675) 4.3 g/dL 3.5-5 ALK PHOS (test code = 8531174685) 622 U/L 34-122 H ALTv (test code = 1742-6) 126 U/L 5-35 H AST(SGOT) (test code = 3714680545) 180 U/L 13-40 H Lab Interpretation (test code = Abnormal 91885-2) [facility] WITH [id number] 23:23:00 Test Item Value Reference Range Interpretation [...] (test code = 51.3 fL 39-49.9 H 00620-2) RDW-CV (test code = 14.9 % 12-15.5 788-0) PLT (test code = See_Comment [Automated 777-3) message] The sy stem which generated this result transmitted reference range : 166 - 358 10*3/ ?L. The reference r luca was not used to interpret this result as normal/abnormal . MPV (test code = 9.3 fL 9.5-12.9 L 86132-4) NRBC/100 WBC (test See_Comment [Automat ed code = 6518305789) message] The system which generated this result transmitted reference range : 0.0 - 10.0 /100 WBCs. The refer ence range was not u sed to interpret th is result as normal/abnormal . NRBC x10^3 (test code <0.01 See_Comment [Auto mated = 7064372877) message] The s ystem which generated this result transmitted reference range : 10*3/?L. The reference range was not used to interpret this result as normal/abnormal . GRAN MAT (NEUT) % 67.4 % (test code = 770-8) IMM GRAN % (test code 0.60 % = 1545193579) LYMPH % (test code = 20.6 % 736-9) MONO % (test code = 9.4 % 5905-5) EOS % (test code = 1.7 % 713-8) BASO % (test code = 0.3 % 706-2) GRAN MAT x10^3(ANC) 2.43 10*3/uL 1.88-7.09 (test code = 4385647320) IMM GRAN x10^3 (test <0.03 0-0.06 code = 3560281355) LYMPH x10^3 (test code 0.74 10*3/uL 1.32-3.29 L = 731-0) MONO x10^3 (test code 0.34 10*3/uL 0.33-0.92 = 742-7) EOS x10^3 (test code = 0.06 10*3/uL 0.03-0.39 711-2) BASO x10^3 (test code <0.03 0.01-0.07 = 704-7) Lab Interpretation Abnormal (test code = 99072-8) [facility] TexasURINALYSIS2020-03-12 22:51:00 Test Item Value Reference Range Interpretation Comments APPEARANCE (test code = Clear Clear 7906652178) COLOR (test code = Yellow Yellow 8486814149) PH (test code = 4.8-8.0 3468242410) SP GRAVITY (test code = 1.003-1.030 7113107990) GLU U QUAL (test code = Negative Negative 8152683616) BLOOD (test code = Negative Negative 0039918101) KETONES (test code = Negative Negative 7556852081) PROTEIN (test code = Negative Negative 2887-8) UROBILIN (test code = 1.0 mg/dL See_Comment [Auto mated message] 1838104021) The system [employer] generated this result transmit gulshan reference range : 0-1.0 mg/dL. Th e reference range was not used to interpret this result as normal/abnormal . BILIRUBIN (test code = Small Negative A 2579575047) NITRITE (test code = Negative Negative 8951485425) LEUK NICHOLE (test code = Negative Negative 3573794840) RBC/HPF (test code = See_Comment [Autom ated message] 4345204421) The system [employer] generated this result transmit gulshan reference range : 0 - 3 HPF. The refe rence range was not u sed to interpret th is result as normal/abnormal . WBC/HPF (test code = See_Comment [Autom ated message] 3516175730) The system [employer] generated this result transmit gulshan reference range : 0 - 5 HPF. The refe rence range was not u sed to interpret th is result as normal/abnormal . BACTERIA (test code = Negative Negative 7898697070) Ictotest (test code = Negative 6299401784) Lab Interpretation (test Abnormal code = 39061-1) [facility] TexasPregnancy Test, [id number] 22:10:00 Test Item Value Reference Range Interpretation Comments PREG SERUM (test code Negative = 9817227042) KIM (test code = KIM) Less than 10 IU/L. ?If low titer or ectopic is suspected, resubmit specimen in 48-72 hours. [facility] TexasCB WITH [id number] 22:10:00 Test Item Value Reference Range Interpretation Comments WBC (test code = See_Comment L [Automated 3590-2) message] The sy stem which generated this result transmitted reference range : 4.30 - 11.10 10*3/?L. The reference range was not used to interpret this result as normal/abnormal . RBC (test code = See_Comment L [Automated 269-8) message] The sy stem which generated this [...] RDW-SD (test code = 49.4 fL 39-49.9 42394-4) RDW-CV (test code = 14.6 % 12-15.5 788-0) PLT (test code = See_Comment [Automated 777-3) message] The sy stem which generated this result transmitted reference range : 166 - 358 10*3/ ?L. The reference r luca was not used to interpret this result as normal/abnormal . MPV (test code = 9.1 fL 9.5-12.9 L 45138-7) NRBC/100 WBC (test See_Comment [Automat ed code = 5522515780) message] The system which generated this result transmitted reference range : 0.0 - 10.0 /100 WBCs. The refer ence range was not u sed to interpret th is result as normal/abnormal . NRBC x10^3 (test code <0.01 See_Comment [Auto mated = 7070491913) message] The s ystem which generated this result transmitted reference range : 10*3/?L. The reference range was not used to interpret this result as normal/abnormal . GRAN MAT (NEUT) % 48.3 % (test code = 770-8) IMM GRAN % (test code 0.30 % = 4660533657) LYMPH % (test code = 38.9 % 736-9) MONO % (test code = 9.8 % 5905-5) EOS % (test code = 2.4 % 713-8) BASO % (test code = 0.3 % 706-2) GRAN MAT x10^3(ANC) 1.78 10*3/uL 1.88-7.09 L (test code = 1827442088) IMM GRAN x10^3 (test <0.03 0-0.06 code = 1758481897) LYMPH x10^3 (test code 1.43 10*3/uL 1.32-3.29 = 731-0) MONO x10^3 (test code 0.36 10*3/uL 0.33-0.92 = 742-7) EOS x10^3 (test code = 0.09 10*3/uL 0.03-0.39 711-2) BASO x10^3 (test code <0.03 0.01-0.07 = 704-7) Lab Interpretation Abnormal (test code = 01461-6) [facility] TexasUrinalysis2020-03-06 20:58:00 Test Item Value Reference Range Interpretation Comments APPEARANCE (test code = Hazy Clear A 6120535729) COLOR (test code = Yellow Yellow 9329425169) PH (test code = 4.8-8.0 3457611078) SP GRAVITY (test code = 1.003-1.030 4259149605) GLU U QUAL (test code = Normal Normal 2908726410) BLOOD (test code = Negative Negative 8784714017) KETONES (test code = Negative Negative 3482858610) PROTEIN (test code = Negative Negative 2887-8) UROBILIN (test code = 4.0 mg/dL Normal A 8093681405) BILIRUBIN (test code = Negative Negative 0881398230) NITRITE (test code = Negative Negative 6366573563) LEUK NICHOLE (test code = Negative Negative 7322903545) RBC/HPF (test code = See_Comment [Autom ated message] 8215879232) The system [employer] generated this result transmit gulshan reference range : 0 - 3 HPF. The refe rence range was not u sed to interpret th is result as normal/abnormal . WBC/HPF (test code = See_Comment [Autom ated message] 9415823826) The system [employer] generated this result transmit gulshan reference range : 0 - 5 HPF. The refe rence range was not u sed to interpret th is result as normal/abnormal . BACTERIA (test code = Many Negative A 6767596575) MUCOUS (test code = Slight Negative LPF A 3739473351) SQ EPITH (test code = HPF 1732824305) HYAL CAST (test code = See_Comment [Aut omated message] 8494223507) The system [employer] generated this result transmit gulshan reference range : <=2 LPF. The refere nce range was not u sed to interpret th is result as normal/abnormal . Lab Interpretation (test Abnormal code = 14873-9) [facility] Metabolic Panel (NA, K, CL, CO2, GLUCOSE, BUN, CREATININE, CA)2019-06-19 20:51:00 Test Item Value Reference Range Interpretation Comments NA (test code = 141 mmol/L 135-145 0916439735) K (test code = 4.5 mmol/L 3.5-5 6977239857) CL (test code = 107 mmol/L 98-108 4289535088) CO2 TOTAL (test code = 25 mmol/L 23-31 3410799796) AGAP (test code = 2-16 2970209733) BUN (test code = 16 mg/dL 7-23 4148189982) GLUCOSE (test code = 89 mg/dL 70-110 4418581640) CREATININE (test code 0.50 mg/dL 0.5-1.04 = 6396761336) CALCIUM (test code = 9.0 mg/dL 8.6-10.6 4120336312) eGFR Calculation mL/min/1.73m2 (Non-) (test code = 6928219453) eGFR Calculation mL/min/1.73m2 () (test code = 7302945263) KIM (test code = KIM) Association of [...] or urine or abnormalities in imaging tests). [facility] Texas[facility] Function [facility] (ALB, T.PRO, BILI T, BU/BC, ALT, AST, ALK PHOS)2019-06-19 20:51:00 Test Item Value Reference Range Interpretation Comments TOTAL BILI (test code = 2476569935) 0.9 mg/dL 0.1-1.1 BILI UNCON (test code = 4965418476) 0.5 mg/dL 0.1-1.1 BILI CONJ (test code = 4210401533) 0.0 mg/dL 0-0.3 T PROTEIN (test code = 5233487790) 8.0 g/dL 6.3-8.2 ALBUMIN (test code = 2660930147) 4.3 g/dL 3.5-5 ALK PHOS (test code = 4904262991) 613 U/L 34-122 H ALTv (test code = 1742-6) 115 U/L 5-35 H AST(SGOT) (test code = 6667563473) 157 U/L 13-40 H Lab Interpretation (test code = Abnormal 83124-5) [facility] TexasLipase [id number] 20:51:00 Test Item Value Reference Range Interpretation Comments LIPASE (test code = 5822827720) 89 U/L 0-220 Lab Interpretation (test code = Normal 91103-9) [facility] TexasCT ABDOMEN PELVIS W [id number] 03:36:50 No acute intra-abdominal abnormality. Hepatosplenomegaly with diffuse fatty infiltration of the liver. Preliminary Report Dictated by Resident: Apolinar Kelley ?MD Simon., have reviewed this study and agree withthe [...] reviewed this study and agree withthe above report.[facility] TexasComplete Metabolic [id number] 01:38:00 Test Item Value Reference Range Interpretation Comments NA (test code = 141 mmol/L 135-145 8520482891) K (test code = 4.0 mmol/L 3.5-5 1526958591) CL (test code = 105 mmol/L 98-108 4050467554) CO2 TOTAL (test code = 24 mmol/L 23-31 5489312217) AGAP (test code = 2-16 2732777263) BUN (test code = 23 mg/dL 7-23 9341789285) GLUCOSE (test code = 110 mg/dL 70-110 4913746822) CREATININE (test code = 0.68 mg/dL 0.5-1.04 5799155554) TOTAL BILI (test code = 1.0 mg/dL 0.1-1.7 4223894349) CALCIUM (test code = 9.4 mg/dL 8.6-10.6 5053278884) T PROTEIN (test code = 8.1 g/dL 6.3-8.2 7017631022) ALBUMIN (test code = 4.7 g/dL 3.5-5 8694669368) ALK PHOS (test code = 575 U/L 34-122 H 4445340176) ALTv (test code = 112 U/L 5-35 H 1742-6) AST(SGOT) (test code = 112 U/L 13-40 H 6357689565) eGFR Calculation mL/min/1.73m2 (Non-) (test code = 1500596139) eGFR Calculation mL/min/1.73m2 () (test code = 8835512007) KIM (test code = KIM) Association of [...] tests). Lab Interpretation Abnormal (test code = 83303-5) [facility] TexasLip[facility], [id number] 01:38:00 Test Item Value Reference Range Interpretation Comments LIPASE (test code = 8215795701) 65 U/L 0-220 Lab Interpretation (test code = Normal 83317-2) [facility] TexasUrinalysis2020-02-05 01:30:00 Test Item Value Reference Range Interpretation Comments APPEARANCE (test code = Clear Clear 3645477264) COLOR (test code = Lisa Yellow A 2770374998) PH (test code = 4.8-8.0 0542118372) SP GRAVITY (test code = 1.003-1.030 3547321702) GLU U QUAL (test code = Normal Normal 5021819982) BLOOD (test code = Negative Negative 9156139771) KETONES (test code = Negative Negative 6956691250) PROTEIN (test code = Negative Negative 2887-8) UROBILIN (test code = 2.0 mg/dL Normal A 7542219843) BILIRUBIN (test code = Negative Negative 2244885403) NITRITE (test code = Negative Negative 6846145010) LEUK NICHOLE (test code = Negative Negative 5649746020) RBC/HPF (test code = See_Comment H [Autom ated message] 9892112895) The system [employer] generated this result transmit gulshan reference range : 0 - 3 HPF. The refe rence range was not u sed to interpret th is result as normal/abnormal . WBC/HPF (test code = See_Comment [Autom ated message] 3104500252) The system [employer] generated this result transmit gulshan reference range : 0 - 5 HPF. The refe rence range was not u sed to interpret th is result as normal/abnormal . BACTERIA (test code = Few Negative A 0100408296) MUCOUS (test code = Slight Negative LPF A 8227048505) SQ EPITH (test code = HPF 1159891018) Lab Interpretation (test Abnormal code = 12575-3) [facility] WITH [id number] 01:24:00 Test Item Value Reference Range Interpretation Comments WBC (test code = See_Comment [Automated 6990-2) message] The sy stem which generated this result transmitted reference range : 4.30 - 11.10 10*3/?L. The reference range was not used to interpret this result as normal/abnormal . RBC (test code = See_Comment L [Automated 709-8) message] The sy stem which generated this [...] RDW-SD (test code = 49.0 fL 39-49.9 19178-6) RDW-CV (test code = 14.3 % 12-15.5 788-0) PLT (test code = See_Comment [Automated 777-3) message] The sy stem which generated this result transmitted reference range : 166 - 358 10*3/ ?L. The reference r luca was not used to interpret this result as normal/abnormal . MPV (test code = 10.2 fL 9.5-12.9 35294-4) NRBC/100 WBC (test See_Comment [Automat ed code = 6828809672) message] The system which generated this result transmitted reference range : 0.0 - 10.0 /100 WBCs. The refer ence range was not u sed to interpret th is result as normal/abnormal . NRBC x10^3 (test code <0.01 See_Comment [Auto mated = 1447350340) message] The s ystem which generated this result transmitted reference range : 10*3/?L. The reference range was not used to interpret this result as normal/abnormal . GRAN MAT (NEUT) % 65.5 % (test code = 770-8) IMM GRAN % (test code 0.50 % = 1727467762) LYMPH % (test code = 24.7 % 736-9) MONO % (test code = 8.6 % 5905-5) EOS % (test code = 0.5 % 713-8) BASO % (test code = 0.2 % 706-2) GRAN MAT x10^3(ANC) 4.37 10*3/uL 1.88-7.09 (test code = 5040287731) IMM GRAN x10^3 (test 0.03 10*3/uL 0-0.06 code = 1908187933) LYMPH x10^3 (test code 1.64 10*3/uL 1.32-3.29 = 731-0) MONO x10^3 (test code 0.57 10*3/uL 0.33-0.92 = 742-7) EOS x10^3 (test code = 0.03 10*3/uL 0.03-0.39 711-2) BASO x10^3 (test code <0.03 0.01-0.07 = 704-7) Lab Interpretation Abnormal (test code = 57573-9) [facility] TexasCT ANKLE RIGHT WO [id number] 16:39:33 Distal tibial spiral fracture with entrance [...] is seen. The ankle mortise is anatomic. [facility], Radiant Results Inft User - 12/05/2018 11:41 [...] the anterolateral tibialplafond without tibial plafond articular incongruity.[facility] TexasXR TIBIA FIBULA 2 VW [id number] 20:06:10 Comminuted mildly displaced distal tibia fracture [...] to the tibialplafond.Nondisplaced proximal fibular shaft fracture. [facility] TexasXR FOOT 3+ VW [id number] 20:06:10 Comminuted mildly displaced distal tibia fracture [...] extending to the tibialplafond.Nondisplaced proximal fibular shaft fracture.[facility] TexasURINE XYXEHDV1181-12-24 21:51:00 Test Item Value Reference Range Interpretation Comments URINE CULTURE (test 10,000 - 100,000 CFU/mL code = 630-4) mixed aerobic organisms - suggests endogenous microbial contamination [facility] TexasHELICOBACTER PYLORI AB, [id number] 14:31:00 Test Item Value Reference Range Interpretation Comments Helicobacter pylori IgG Negative Negative Antibody (test code = 8013891590) KIM (test code = KIM) Negative - No H. pylori IgG antibody detected.Positive - Indicates presence of detectable IgG antibodies. Does not distinguish between past or current infection, or between active infection and colonization.Invalid - A second sample should be sent. Lab Interpretation (test Normal code = 01677-0) [facility] Metabolic Panel (NA, K, CL, CO2, GLUCOSE, BUN, CREATININE, CA)2018-11-16 10:15:00 Test Item Value Reference Range Interpretation Comments NA (test code = 140 mmol/L 135-145 9104726789) K (test code = 3.9 mmol/L 3.5-5 8071111883) CL (test code = 105 mmol/L 98-108 2967374237) CO2 TOTAL (test code = 30 mmol/L 23-31 5110477289) AGAP (test code = 2-16 3898770977) BUN (test code = 16 mg/dL 7-23 0880331873) GLUCOSE (test code = 104 mg/dL 70-110 8033215981) CREATININE (test code 0.52 mg/dL 0.5-1.04 = 1445847577) CALCIUM (test code = 8.6 mg/dL 8.6-10.6 4313155501) eGFR Calculation mL/min/1.73m2 (Non-) (test code = 4760558936) eGFR Calculation mL/min/1.73m2 () (test code = 5247185271) KIM (test code = KIM) Association of [...] or urine or abnormalities in imaging tests). [facility] WITH PBMUPZRXKANV8699-71-36 09:47:00 Test Item Value Reference Range Interpretation Comments WBC (test code = See_Comment [Automated 3190-2) message] The sy stem which [...] RDW-SD (test code = 47.8 fL 39-49.9 38496-8) RDW-CV (test code = 13.5 % 12-15.5 788-0) PLT (test code = See_Comment [Automated 777-3) message] The sy stem which generated this result transmitted reference range : 166 - 358 10*3/ ?L. The reference r luca was not used to interpret this result as normal/abnormal . MPV (test code = 9.9 fL 9.5-12.9 01432-1) NRBC/100 WBC (test See_Comment [Automat ed code = 8188225619) message] The system which generated this result transmitted reference range : 0.0 - 10.0 /100 WBCs. The refer ence range was not u sed to interpret th is result as normal/abnormal . NRBC x10^3 (test code <0.01 See_Comment [Auto mated = 3864743908) message] The s ystem which generated this result transmitted reference range : 10*3/?L. The reference range was not used to interpret this result as normal/abnormal . GRAN MAT (NEUT) % 56.8 % (test code = 770-8) IMM GRAN % (test code 0.40 % = 5981694122) LYMPH % (test code = 27.2 % 736-9) MONO % (test code = 9.1 % 5905-5) EOS % (test code = 5.8 % 713-8) BASO % (test code = 0.7 % 706-2) GRAN MAT x10^3(ANC) 2.55 10*3/uL 1.88-7.09 (test code = 0840807337) IMM GRAN x10^3 (test <0.03 0-0.06 code = 0742940749) LYMPH x10^3 (test code 1.22 10*3/uL 1.32-3.29 L = 731-0) MONO x10^3 (test code 0.41 10*3/uL 0.33-0.92 = 742-7) EOS x10^3 (test code = 0.26 10*3/uL 0.03-0.39 711-2) BASO x10^3 (test code 0.03 10*3/uL 0.01-0.07 = 704-7) Lab Interpretation Abnormal (test code = 14176-3) [facility] TexasGLYCOSYLATED HEMOGLOBIN (A1C)2018-11-16 04:33:00 Test Item Value Reference [...] Indicated Lab Interpretation Normal (test code = 90618-6) [facility] TexasHCV [id number] 02:23:00 Test Item Value Reference Range Interpretation Comments HCV Semi-Quantitative (test code = 74561-8) [facility] TexasHEPATITIS B SURFACE [id number] 02:23:00 Test Item Value Reference Range Interpretation Comments HBsAB (test code = Negative 1535656827) HBsAb mIU/mL Semi-Quantitative (test code = 4931578538) KIM (test code = Interpretation:?Hepatitis KIM) B Surface Antibody? ? Negative - Patient is considered to be not immune to infection with HBV.? Positive - Anti-HBs detected at greater than or equal to 12 mIU/mL.?Patient is considered to be immune to infection with HBV.? [facility] TexasHESAINT ELIZABETH HEBRONTIS A VIRUS ANTIBODY [id number] 02:11:00 Test Item Value Reference Range Interpretation Comments HAVM Semi-Quantitative (test code = 64874-1) KIM (test code = HAVAb IgM Interpretative KIM) Information:Reactive greater than or equal to 1.2Biotin has been reported to cause a negative bias, interpret results relative to patient's use of biotin. [facility] B CORE ANTIBODY [id number] 02:11:00 Test Item Value Reference Range Interpretation Comments HBCM Semi-Quantitative (test code = 72403-5) KIM (test code = Biotin has been reported KIM) to cause a negative bias, interpret results relative to patient's use of biotin. [facility] TexasABORH HAEPAQUMPKMK0423-79-51 00:49:22 Test Item Value Reference Range Interpretation Comments ABO & RH (test code O Positive Performe d at [facility] = 20) Laboratory Serv [facility] HospitalJeffery bruce [address]Zlry Free: [phone] A No. [id number] [facility] TexasUrinalysis2019-08-04 00:29:00 Test Item Value Reference Range Interpretation Comments APPEARANCE (test code = Clear Clear 7048917878) COLOR (test code = Yellow Yellow 5394807409) PH (test code = 4.8-8.0 7940859994) SP GRAVITY (test code = 1.003-1.030 H 9633326723) GLU U QUAL (test code = Normal Normal 4618722652) BLOOD (test code = Negative Negative 8506795021) KETONES (test code = Negative Negative 6730467845) PROTEIN (test code = Negative Negative 2887-8) UROBILIN (test code = 4.0 mg/dL Normal A 9486768847) BILIRUBIN (test code = Negative Negative 2234351922) NITRITE (test code = Negative Negative 6424985439) LEUK NICHOLE (test code = Negative Negative 9220182031) RBC/HPF (test code = See_Comment H [Autom ated message] 9863665612) The system Modular Pattern[employer] generated this result transmit gulshan reference range : 0 - 3 HPF. The refe rence range was not u sed to interpret th is result as normal/abnormal . WBC/HPF (test code = See_Comment [Autom ated message] 4054626363) The system [employer] Pattern[employer] generated this result transmit gulshan reference range : 0 - 5 HPF. The refe rence range was not u sed to interpret th is result as normal/abnormal . BACTERIA (test code = Negative Negative 2681415836) SQ EPITH (test code = See_Comment [Auto mated message] 4732783800) The system [employer] Pattern[employer] generated this result transmit gulshan reference range : <=2 HPF. The refere nce range was not u sed to interpret th is result as normal/abnormal . Lab Interpretation (test Abnormal code = 22144-6) [facility] TexasType and Screen - ONCE Nikziho0140-46-90 00:15:31 Test Item Value Reference Range Interpretation Comments ABO & RH (test code O POSITIVE Performe d at [facility] = 20) Laboratory Serv [facility] Blood [facility]3 [facility] [address]Tylo Free: [phone] A No. [id number] IAT (test code = Negative Performed a t [facility] 1185) Laboratory Serv [facility] Blood [facility]3 [facility] [address]Hose Free: [phone] A No. [id number] [facility] of TexasTROPONIN [id number] 00:04:00 Test Item Value Reference Range Interpretation Comments TROPONIN I (test 0.002 ng/mL See_Comment [Automated code = 6514322322) message] The system which generated this result [...] ? Lab Interpretation Normal (test code = 70199-3) [facility] TexasLIPID PANEL (03346)(TOTAL CHOLESTEROL, TRIGLYCERIDES, HDL)2018-11-15 23:58:00 Test Item Value Reference Range Interpretation Comments CHOL (test code = 289 mg/dL 120-200 H 7458599624) HDL (test code = 97 mg/dL >50 0484583906) HDLC RATIO (test code = See_Comment [Au tomated message] 6527506258) The system Modular Pattern[employer] generated this result transmit gulshan reference range : <=4.5. The refe rence range was not u sed to interpret th is result as normal/abnormal . TRIG (test code = 52 mg/dL 30-170 5448714141) LDL CHOL (test code = 182 mg/dL See_Comment H [Auto mated message] 09150-7) The system Mod[employer] Pattern[employer] generated this result transmit gulshan reference range : <=160. The refe rence range was not u sed to interpret th is result as normal/abnormal . VLDL (test code = 10 mg/dL 5-60 1709628221) Lab Interpretation (test Abnormal code = 39361-7) [facility] TexasCT ABDOMEN PELVIS W [id number] 17:09:23 1.?No acute intra-abdominal or pelvic abnormality. [...] No acute intra-abdominal or pelvic abnormality.2. Splenomegaly, unchanged.[facility] of TexasACETAMINOPHEN 2018-11-15 16:52:00 Test Item Value Reference Range Interpretation Comments ACETAMINOP (test code = <10.0 10-30 L 8912543646) KIM (test code = KIM) Toxic: Greater than 200 ug/mL @ 4 hour post ingestion or greater than 50 ug/mL @ 12 hour post ingestion Lab Interpretation (test Abnormal code = 01211-4) [facility] TexasXR CHEST 1 [id number] 15:23:59 1.?No acute cardiopulmonary abnormality.* * * [...] osseous abnormality is seen.IMPRESSION1. No acute cardiopulmonary abnormality.[facility] TexasTroponin [id number] 15:19:00 Test Item Value Reference Range Interpretation Comments TROPONIN I (test 0.014 ng/mL See_Comment [Automated code = 5550809367) message] The system which generated this result [...] ? Lab Interpretation Normal (test code = 15711-5) [facility] TexasN-TERMINAL OQK-DZX5832-01-03 15:16:00 Test Item Value Reference Range Interpretation Comments NT-proBNP (test code 29 pg/mL See_Comment [Autom ated = 2138877622) message] The system which generated this result transmitted reference range : <=125. The reference range was not used to interpret this result as normal/abnormal . KIM (test code = KIM) Biotin has been reported to cause a negative bias, interpret results relative to patient's use of biotin. Lab Interpretation Normal (test code = 66064-2) [facility] Metabolic Panel (NA, K, CL, CO2, GLUCOSE, BUN, CREATININE, CA)2018-11-15 15:07:00 Test Item Value Reference Range Interpretation Comments NA (test code = 142 mmol/L 135-145 3109768705) K (test code = 5.1 mmol/L 3.5-5 H 5132347347) CL (test code = 107 mmol/L 98-108 1378464394) CO2 TOTAL (test code = 26 mmol/L 23-31 1881884338) AGAP (test code = 2-16 4671843877) BUN (test code = 22 mg/dL 7-23 9889661580) GLUCOSE (test code = 93 mg/dL 70-110 8141547436) CREATININE (test code = 0.47 mg/dL 0.5-1.04 L 9778142213) CALCIUM (test code = 8.9 mg/dL 8.6-10.6 7723462296) eGFR Calculation mL/min/1.73m2 (Non-) (test code = 9367549258) eGFR Calculation mL/min/1.73m2 () (test code = 8267544359) KIM (test code = KIM) Association of [...] tests). Lab Interpretation Abnormal (test code = 81358-6) [facility] TexasHepatic Function Panel (ALB, T.PRO, BILI T, BU/BC, ALT, AST, ALK PHOS)2018-11-15 15:07:00 Test Item Value Reference Range Interpretation Comments TOTAL BILI (test code = 3925570464) 1.1 mg/dL 0.1-1.1 BILI UNCON (test code = 9172348998) 0.4 mg/dL 0.1-1.1 BILI CONJ (test code = 0959344767) 0.0 mg/dL 0-0.3 T PROTEIN (test code = 5991015844) 8.2 g/dL 6.3-8.2 ALBUMIN (test code = 6795307315) 4.2 g/dL 3.5-5 ALK PHOS (test code = 3542004835) 723 U/L 34-122 H ALT(SGPT) (test code = 9965349741) 196 U/L 9-51 H AST(SGOT) (test code = 9268917217) 194 U/L 13-40 H Lab Interpretation (test code = Abnormal 22315-5) [facility] TexasLipase Rwtuy3623-26-32 15:07:00 Test Item Value Reference Range Interpretation Comments LIPASE (test code = 2044820194) 185 U/L 0-220 Lab Interpretation (test code = Normal 52553-4) [facility] of TexasaPTT2019-08-03 14:58:00 Test Item Value Reference Range Interpretation Comments APTT Patient (test See_Comment [Automat ed code = 3173-2) message] The system which generated this result transmitted reference range : 23 - 38 Seconds . The reference range was not used to interpr et this result as normal/abnormal . KIM (test code = KIM) The [facility] patient population mean normal value for aPTT is 30 seconds. Lab Interpretation Normal (test code = 49259-2) [facility] TexasProthrombin Time (PT) / [id number] 14:55:00 Test Item Value Reference Range Interpretation [...] tions. Lab Interpretation (test Normal code = 41469-5) [facility] TexasCB WITH FJFWWVQKSESY5561-80-72 14:47:00 Test Item Value Reference Range Interpretation [...] RDW-SD (test code = 47.1 fL 39-49.9 56550-8) RDW-CV (test code = 13.4 % 12-15.5 788-0) PLT (test code = See_Comment [Automated 777-3) message] The sy stem which generated this result transmitted reference range : 166 - 358 10*3/ ?L. The reference r luca was not used to interpret this result as normal/abnormal . MPV (test code = 10.0 fL 9.5-12.9 16032-8) NRBC/100 WBC (test See_Comment [Automat ed code = 9062112787) message] The system which generated this result transmitted reference range : 0.0 - 10.0 /100 WBCs. The refer ence range was not u sed to interpret th is result as normal/abnormal . NRBC x10^3 (test code <0.01 See_Comment [Auto mated = 1451634014) message] The s ystem which generated this result transmitted reference range : 10*3/?L. The reference range was not used to interpret this result as normal/abnormal . GRAN MAT (NEUT) % 54.5 % (test code = 770-8) IMM GRAN % (test code 0.40 % = 1216634538) LYMPH % (test code = 26.5 % 736-9) MONO % (test code = 10.5 % 5905-5) EOS % (test code = 7.4 % 713-8) BASO % (test code = 0.7 % 706-2) GRAN MAT x10^3(ANC) 2.43 10*3/uL 1.88-7.09 (test code = 3396634524) IMM GRAN x10^3 (test <0.03 0-0.06 code = 9465931958) LYMPH x10^3 (test code 1.18 10*3/uL 1.32-3.29 L = 731-0) MONO x10^3 (test code 0.47 10*3/uL 0.33-0.92 = 742-7) EOS x10^3 (test code = 0.33 10*3/uL 0.03-0.39 711-2) BASO x10^3 (test code 0.03 10*3/uL 0.01-0.07 = 704-7) Lab Interpretation Abnormal (test code = 53403-2) [facility], Qnfvw5971-03-57 15:57:00 Test Item Value Reference Range Interpretation Comments Culture, Urine (test NF code = URC) Culture, Urine (test 10 NSF code = URC1) * This is an EDITED result. * A prior r esult that was reported as final has been changed. Jzwajkhgaq6881-10-34 22:53:00 Test Item Value Reference Range Interpretation [...] = UACAST) CAST LPF Urine Source: Urine Ggvntu95833 SURGICAL PATHOLOGY, LEVEL [id number] 14:31:[address] [address] Laboratory Printed: 07/09/[address] [place] [address] DAEMPathology Page: 1 Patient: YESSENIA ALEMAN Birthdate: 1960 Age/Sex: 56/F Spec#: [id number]: HERMES SALAZAR Specimen Date: 07/08/17 [...] plasma cells, and few neutrophils. Pathologist:Kelvin Conway Enteredby:07/09/17 - 1430 MAY PROCEDURES: 98972, 73858/4 Patient: YESSENIA ALEMAN Re07/03/17Loc: T4-A MR#: [id number] CONTINUED ON NEXT PAGE Dis: 07/09/17ta: DIS IN [address] [address] Laboratory Printed: 07/09/17 [facility]1B DAEMPathology Page: 2 Patient: ALEC ALEMANLUIS Richey [id number] (Continued) GROSS DESCRIPTION A. LIVER BIOPSY LEFT LOBE The specimen is received in 10% formalin, and is labeled with the patient's name and "liverbiopsy". The specimen consists of three cores of snow soft tissue ranging from 0.7 to 2.1cmin length, and each one measures less than 0.1 cm in diameter. The entire specimen issubmitted in one cassette. Dictated by: DANII SHAHID Entered by: 07/08/17 - 1316 LAB.YGP MICROSCOPIC DESCRIPTION A microscopic examination was performed to arrive at the diagnostic conclusion reported. Signed (Electronically Signed) Kelvin 07/09/17 Patient: YESSENIA ALEMAN Re07/03/17Loc: T4-A MR#: [id number] END OF REPORT Dis: 07/09/17ta: DIS UBMfvxxuxuz7740-31-17 05:13:00 Test Item Value Reference Range Interpretation [...] U/L 8-55 H = ALT) Reference Lab Mjecrmn6464-71-20 04:14:00 Test Item Value Reference Range Interpretation Comments Reference Lab 10 U/mL 0-35 Laurent ECLIA Testing (test code methodolo gyPerformed at: HD = CA199) - [facility] [address] [place], [place] [id number] Di aimee: Chico Suero MD, Phone : [phone] Reference Lab Dvujmwd1801-64-86 16:14:00 Test Item Value Reference Range Interpretation Comments Reference Lab Testing 128.5 Units 0.0-20.0 H Negat kourtney 0.0 - 20.0 (test code = MARLON) Equivocal 20.1 - 24.9 Positive >24.9Mitochondr ial (M2) Antibodies are found in 90-96% ofpatients with primary biliary cirrhosis.Perfo rmed at: BN - [facility] p [address] [place], [place] [id number] Director: Pj Rider MD, [facility] ne: [phone] Reference Lab Npiuxss4945-19-79 16:14:00 Test Item Value Reference Range Interpretation [...] testing of p ositive sera with both SC-3 and MPO-ANCA enzyme immunoassays. A s many as 5% serumsamples are positive only b y EIA. Ref. AM J Clin Rcpvho0706;111: 507-513. Reference Lab <1:20 titer Neg:<1:20 The atypical p ANCA pattern Testing (test has been obser chelita in code = ATANCA) asignificant percentage of patients with u lcerative colitis,primary sclerosing cholangitis and autoimmune hepatitis.Perfo rmed at: BN - [facility] [place], [place] [address]Krf Di aimee: Chester ramírez MD, Phone: [phone] Yvcgnoarp6775-39-09 05:12:00 Test Item Value Reference Range Interpretation [...] 8-55 H code = ALT) Reference Lab Wqselpb0306-12-85 22:07:00 Test Item Value Reference Range Interpretation Comments Reference Lab Testing 785 IU/L 39-117 H (test code = ISOALKT) Reference Lab Testing 25 % 14-68 (test code = ISOALKBT) Reference Lab Testing 74 % 18-85 (test code = ISOALKLT) Reference Lab Testing 1 % 0-18 Perfor med at: HD - (test code = ISOALKIT) [facility] [address] [id number] Director: Chico Suero MD, Phone: [phone] [facility] at: [facility] Lab[address] [id number] Di aimee: Chester ramírez MD, Phone: [phone] Abhsrybuv9273-12-69 11:48:00 Test Item Value Reference Range Interpretation [...] code = ALT) 92 U/L 8-55 H Kldcmruts3147-33-71 06:08:00 Test Item Value Reference Range Interpretation [...] 8.5 mg/dL 7.8-10.44 N code = CA) Bffonnqqj8904-14-10 06:06:00 Test Item Value Reference Range Interpretation [...] code = ALT) 129 U/L 8-55 H Jkasywfdzf9930-88-30 05:57:00 Test Item Value Reference Range Interpretation [...] code = BASO#) 0.0 thou/uL 0.0-0.2 N Lelylyelgpb2424-90-21 05:55:00 Test Item Value Reference Range Interpretation Comments Coagulation (test 13.5 SEC 12.0-14.7 N code = PT-T) Coagulation (test 1.0 ATTE NTION: READ code = INR) CAREFULLY-- The recommended the rapeutic ranges for oral anticoagulanttr eatments are: ------ Low Inte nsity: 1.5 - 2.0 Moderate I ntensity: 2.0 - 3.0 High Inte nsity (1): 2.5 - 3.5 High Inte nsity (2): 3.0 - 4.0 CRITICAL: > 4.0 Anticoagulant? EDYATqgkwzwuo7319-49-11 05:36:00 Test Item Value Reference Range Interpretation [...] 8.9 mg/dL 7.8-10.44 N code = CA) Jngiygvah2899-59-77 05:33:00 Test Item Value Reference Range Interpretation [...] code = ALT) 160 U/L 8-55 H Ljumbelbxm6289-65-17 05:28:00 Test Item Value Reference Range Interpretation [...] 0.1 thou/uL 0.0-0.2 N Chemistry - Elizabeth Bljuvqv9953-92-73 13:02:00 Test Item Value Reference Range Interpretation [...] hod: Enzyme Linked Fluorescent Immunoassay (Elizabeth)Reference s: elarmdia AB Elizabeth Package Inserts - Directions forGriff[facility] – NormanJune,August 02, Convore ic. Xcrbfdhki5708-68-05 05:00:00 Test Item Value Reference Range Interpretation [...] code = ALT) 144 U/L 8-55 H Gbfxmwtnj3153-34-94 04:50:00 Test Item Value Reference Range Interpretation [...] 8.4 mg/dL 7.8-10.44 N code = CA) Yrtfcgzswt4702-09-53 04:39:00 Test Item Value Reference Range Interpretation [...] code = BASO#) 0.0 thou/uL 0.0-0.2 N Zbvtaacez5908-06-78 17:07:00 Test Item Value Reference Range Interpretation Comments Chemistry (test code = IGG) 1032.00 mg/dL 552-1631 N Ceysakffo3000-53-21 17:07:00 Test Item Value Reference Range Interpretation Comments Chemistry (test code = IGM) 215.00 mg/dL 33-293 N Mluyufvvao3370-78-85 00:50:00 Test Item Value Reference Range Interpretation [...] UABLD) Urine Source: Urine Clean CatchChemistry - Qsqohwhd5768-41-00 00:25:00 Test Item Value Reference Range Interpretation Comments Chemistry - Specials (test Non-Reactive NonReactive code = THEPAIGM) Chemistry - Specials (test Non-Reactive S/CO NonReactive code = THBSAG) Chemistry - Specials (test Non-Reactive NonReactive code = INTHBCM) Chemistry - Specials (test Non-Reactive NonReactive code = INTHEPC) Tabbtteaz3402-01-61 22:12:00 Test Item Value Reference Range Interpretation [...] code 196 U/L 8-55 H = ALT) Utxlerzwg8747-94-38 22:12:00 Test Item Value Reference Range Interpretation Comments Chemistry (test code = LIP) 22 U/L 8-78 N Vygyvtydml8308-02-91 21:50:00 Test Item Value Reference Range Interpretation [...] code = BASO#) 0.1 thou/uL 0.0-0.2 N Oyxdfbsah2457-04-28 22:49:00 Test Item Value Reference Range Interpretation [...] 78 U/L 8-55 H code = ALT) Hxurnvmfy0088-93-25 22:49:00 Test Item Value Reference Range Interpretation Comments Chemistry (test code = LIP) 12 U/L 8-78 N Xntmjojvgk6188-94-56 22:24:00 Test Item Value Reference Range Interpretation [...] code = BASO#) 0.0 thou/uL 0.0-0.2 N Xfaeiyhnsd9521-09-18 22:00:00 Test Item Value Reference Range Interpretation [...] UABLD) Negative Negative Urine Source: Urine Clean ZocnjQetesemt9183-09-10 09:28:00 Test Item Value Reference Range Interpretation Comments Accuchek (test code = ACU) 99 mg/dL 70-110 N Mhxmckijit9454-57-46 09:14:00 Test Item Value Reference Range Interpretation [...] UABLD) Negative Negative Urine Source: Urine Clean KntcgEalwpafwvx5856-33-87 21:28:00 Test Item Value Reference Range Interpretation [...] UABLD) Negative Negative Urine Source: Urine Clean WriucPhdmpvuph9051-61-37 21:09:00 Test Item Value Reference Range Interpretation [...] 95 U/L 8-55 H code = ALT) Aurwvojly4881-70-90 21:09:00 Test Item Value Reference Range Interpretation Comments Chemistry (test code = LIP) 39 U/L 8-78 N Hyfrczijut3536-98-23 20:49:00 Test Item Value Reference Range Interpretation [...] code = BASO#) 0.0 thou/uL 0.0-0.2 N Gkbktzofqb8186-98-16 21:34:00 Test Item Value Reference Range Interpretation [...] NotDetected (test code = PPX) Toxicology The TauntrTox Pro file-V Panel (test code = for Qualitative Drugs MTCUTOFF) ofAbuse assays are for presumptive scr eening testing only.Th e drug class and detec tion limits are as follows: Drug Class Detection Limit Amphetamine 500 ng/mL*Leeanne turates 200 ng/mLBenzodiaze pines 150 ng/mL*Cocaine 1 50 ng/mL*Methamphe tamine 500 ng/mL*Methadone 200 ng/mL*Opiates 100 ng/mL*Oxycodone 100 ng/mLPCP 25 ng/mLPropoxyphe ne 300 [...] held fortwo weeks. Urine Source: Urine Clean [id number] 19:17:00 Test Item Value Reference Range Interpretation [...] = UABLD) Negative Negative Urine Source: Urine [id number] 18:48:00 Test Item Value Reference Range Interpretation [...] code 84 U/L 8-55 H = ALT) [id number] 18:48:00 Test Item Value Reference Range Interpretation Comments Chemistry (test code = JORGE) 53.0 U/L 25-125 N [id number] 18:48:00 Test Item Value Reference Range Interpretation Comments Chemistry (test code = LIP) 10 U/L 8-78 N [id number] 18:19:00 Test Item Value Reference Range Interpretation [...] = BASO#) 0.1 thou/uL 0.0-0.2 N Culture, [id number] 10:22:00 Test Item Value Reference Range Interpretation Comments Culture, Urine (test code = URC) NF N Culture, Urine (test code = URC1) 10 MSF N [id number] 17:38:00 Test Item Value Reference Range Interpretation Comments Chemistry (test code = PHOS) 2.9 mg/dL 2.3-4.7 N [id number] 17:04:00 Test Item Value Reference Range Interpretation [...] H = ALT) Chemistry - BNP, HgbA1c, [id number] 17:04:00 Test Item Value Reference Range Interpretation Comments Chemistry - BNP, 4.9 % 4.0-6.0 N Therapeutic goals for glycemic HgbA1c, PTHi (test control ( ADA)Adults:- Goal of code = DGRC5HH) therapy: Les s than 7.0% HbA1c- Action suggeste d: Greater than 8.0% SxU9sXnhca tric patients:- Toddlers and pr eschoolers: Less than 8.5% (but Greater than 7.5%)- Katelynn ool age (6-12 years): Less th an 8%- Adolescents and young adults (13-19 years): Less than 7.5%Diagnosing diabetes (ADA)- HbA1c: Greater than or equal to 6.5% Values of 5.7 - 6.4% indicate HIGH r isk for developing DiabetesInterna tional Expert Committee Repor t on the Role of the H2HXziju in the Diagnosis of Di abetes. Diabetes Care 2009July;32(7): 1327-1334ADA, Diagnosis class ification of diabetes [facility].Diabetes Care 2010; 33 S uppl 1:S62 Hoycojlhr0934-08-07 16:59:00 Test Item Value Reference Range Interpretation Comments Chemistry (test code = CRP) 1.16 mg/dL = or < 0.5 H What test does the doctor want? C-REACTIVE PROTEIN (CRP)[id number] 16:53:00 Test Item Value Reference Range Interpretation [...] HPF None Seen Urine Source: Urine Clean [id number] 16:46:00 Test Item Value Reference Range Interpretation [...] code = BASO#) 0.1 thou/uL 0.0-0.2 N [id number] 21:59:00 Test Item Value Reference Range Interpretation [...] Urine Clean CatchSepsis - Lactic Acid >2 [id number] 23:59:00 Test Item Value Reference Range Interpretation Comments Sepsis - Lactic Additional Lactate testin g will be Acid >2 Rflx performed in 3 hrs (test code = according to e MBHIL6T) SepsisProtocol. [id number] 21:12:00 Test Item Value Reference Range Interpretation Comments Chemistry (test code = JORGE) 59.0 U/L 25-125 N [id number] 20:59:00 Test Item Value Reference Range Interpretation [...] 87 U/L 8-55 H code = ALT) [id number] 20:59:00 Test Item Value Reference Range Interpretation Comments Chemistry (test code = LIP) 32 U/L 8-78 N Chemistry - [id number] 20:59:00 Test Item Value Reference Range Interpretation Comments Chemistry - Lactate (test code = 2.1 mmol/L 0.5-2.2 N LACTSEP-T) [id number] 20:43:00 Test Item Value Reference Range Interpretation [...] = UABLD) Negative Negative Urine Source: Urine BvodxiIlhsxommrt6298-10-10 20:37:00 Test Item Value Reference Range Interpretation [...] N Notes Date/Time Note Provider Source 2017-07-09 [facility]LE[facility]:52:00-00:[address] : 1960, Age: 56, Sex: JERONIMO Ortega [address] Unit #: [id number], Status: DIS IN [phone] Location: [address] Report D[address].: MARIANELA DAMON DO Admission Date: 07/03/17 Report #: [id number] Discharge Date: 07/09/17 CC: Bita Hatfield NP, CHARLES DO Walker, Eric P MD DISCHARGE SUMMARY REPORT DATE OF ADMISSION: 07/03/2017 DATE OF DISCHARGE: 07/09/2017 DISCHARGE DIAGNOSES: 1. Abdominal pain, right upper quadrant, impro ed. 2. Primary biliary cirrhosis. 3. Transaminitis [...] mg p.o. t.i.d. FOLLOWUP: The patient jitendra alarcon ollow up with her primary care provider, Bita Vera within 7 days of discharge. The patient kaila y follow up with Dr. Romero with the Gastroenterology Service and to call his office for appointment time and date. CONDITION ON DISCHARGE: Stable. ACTIVITY: Ad donovan. DIET: Heart healthy. CODE STATUS: Full. DISPOSITION: Home on 07/09/2017. Reported By: MARIANELA DAMON DO Electronically Signed Date/Time: 07/23/17 0937 Dictated Date/Time: 07/09/17 1139 Transcribed Date/Time: 07/09/17 1206 [employer] Director: FEDERICA 2017-07-08 [facility] Name: KHOA CLEMENTEYESSENIA Christopher STLSJH 20:38:00-00:00 [facility] [address] : 1960, Age: 56, Sex: JERONIMO Ortega [address] Unit #: [id number], Status: ADM IN [phone] Location: [address] Report [address].: Jose Luis Romero MD Admission Date: 07/03/17 Report #: [id number] Discharge Date: CC: Bita Hatfield NP, Christopher J MD Walker, Eric P MD PROGRESS NOTE GI FOLLOWUP NOTE DATE OF SERVICE: 07/08/2017 SUBJECTIVE: Ms. Aleman had a liver biopsy. She is feeling [...] I have talked to her gastrologist in [place] last Ed. He states she had stents [...] she will need to follow up with [facility] radiologist in [place]. She has persistent right upper quadrant pain and consider replacing her s tents, although at this time, I do not see if that is necessary for the above noted regions. Reported By: Jose Luis Romero MD Electronically Signed Date/Time: 07/09/17 0751 Dictated Date/Time: 07/08/171826 Transcribed Date/Time: 07/08/171923 [employer] Well[employer] Director: MARTHA 2017-07-08 [facility] Name: ALEC ALEMAN MARIANELA SINHA [facility] 15:15:00-00:00 [address] : 1960, Age: 56, Sex: F JERONIMO Hoffmann [address] Unit #: [id number], Status: ADM IN [phone] Location: T4-A 4404-P Report Dict DrYoly: MARIANELA DAMON DO Admission Date: 07/03/17 Report #: [id number] Discharge Date: CC: Hospitalist Progress Note - [...] sa line lock IVF - Plan 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, out of bed/ambulate, DVT proph w/SCDs Stable overall -: Continue supportive measures -: Saline lock IVF -: D/C Levaquin -: Await liver bx * AM lab: CMP * Likely home in am <Electronically signed by Marianela Damon DO> 1143 2017-07-07 [facility] Name: ALEC ALEMAN Luis Renee STLSJH 20:12:00-00:[address] : 1960, Age: 56, Sex: JERONIMO Ortega [address] Unit #: [id number], Status: DIS IN [phone] Location: T4-A 4404-P Report Dict DrYoly: Luis Hodges MD Admission Date: 07/03/17 Report #: [id number] Discharge Date: 07/09/17 CC: Bita Hatfield NP, [...] been previously seen by an interventional in [facility] repeated biliary stents and symptom relief with [...] 0905 Dictated Date/Time: 07/07/171907 Transcribed Date/Time: 07/07/172011 [employer] Well[employer] Director: OREN 2017-07-07 [facility]: [facility]LEMAN [facility] 17:14:00-00:[address] : 1960, Age: 56, Sex: JERONIMO Ortega [address] Unit #: [id number], Status: ADM IN [phone] Location: [address] Report D[address].: MARIANELA DAMON DO Admission Date: 07/03/17 Report #: [id number] Discharge Date: CC: Hospitalist Progress Note - [...] continue Cozaar 100mg daily - Plan 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 <Electronically signed by Marianela Damon DO> 1737 2017-07-06 [facility] Name: ALEC ALEMAN Tracie Luis STLSJH 17:31:00-00:[address] : 1960, Age: 56, Sex: JERONIMO Ortega [address] Unit #: [id number], Status: DIS IN [phone] Location: T4-A [facility] Report Dict Dr.: Luis Hodges MD Admission Date: 07/03/17 Report #: [id number] Discharge Date: 07/09/17 CC: Bita Hatfield NP, [...] and P-ANCA. ASSESSMENT AND PLAN: The pat pedro pablo is a 56-year-old female with past medical [...] seen by Dr. Ana María Penny in [place] with multiple ERCPs performed and multiple stents placed with resolution of her abdominal pain. However, she subsequently stopped the use of ursodiol after her most recent ERCP due to her lack of symp toms and has been slowly getting the symptoms back over the last 3-6 months. At the current time , her problem is primarily located in the [...] Please call with any questions. Reported By: Lusi Hodges MD Electronically Signed Date/Time: 08/21/17 0905 Dictated Date/Time: 07/06/17 1650 Transcribed Date/Time: 07/06/17 1731 [employer] Wellness Director: OREN 2017-07-06 [facility] Name: ALEC ALEMAN Eh Cerda [facility] 13:44:00-00:[address] : 1960, Age: 56, Sex: JERONIMO Ortega [address] Unit #: [id number], Status: ADM IN [phone] Location: T4-A [facility] Report Dict Dr.: Eh Henderson MD Admission Date: 07/03/17 Report #: [id number] Discharge Date: CC: Hospitalist Progress Note - [...] of care to her ERCP specialist in [place]. (2) Abdominal pain Code(s): R10.9 - UNSPECIFIED [...] current plan of care, P T/OT, 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, incentive spirometry, out of bed/ambulate, DVT proph [...] 08: 13 Medications: Current Medications Hydrocodone Bitart/Acetaminophen ([place] 5/325) 1 tab PO Q4H PRN PRN Reason: Moderate Pain (4-6) Last Admin: 07/06/17 01:28 Dose: 1 tab Diazepam (Valium) 5 mg PO BID [facility] Last Admin: 07/06/17 08:13 Dose: 5 mg Enoxaparin Sodium (Lovenox) 40 mg SC 0900 [facility] Stop: 07/07/17 11:00 Last Admin: 07/06/17 08:16 Dose: 40 mg Famotidine (Pepcid) 20 mg SLOW IVP Q12HR [facility] Last Admin: 07/06/17 09:46 Dose: 20 mg Levofloxacin 500 mg/ Device 100 mls @ 100 mls/hr IVPB Q24HR [facility] Last Admin: 07/05/17 15:30 Dose: 100 mls Sodium Chloride (Normal Saline 0.9%) 1,000 mls @ 125 mls/hr IV .Q8H [facility] Last Admin: 07/06/17 09:42 Dose: 1,000 mls Losartan Potassium (Cozaar) 100 mg PO DAILY [facility] Last Admin: 07/06/17 08:11 Dose: 100 mg Morphine Sulfate (Morphine) 4 mg SLOW IVP Q4H SC N PRN Reason: Pain Last Admin: 07/06/17 12:45 Dose: 4 mg Ondansetron HCl (Zofran) 4 mg IVP Q6H PRN PRN Reason: Nausea/Vomiting Last Admin: 07/06/17 08:13 Dose: 4 mg Ondansetron HCl (Zofran Odt) 4 mg PO Q6H PRN PRN Reason: Nausea/Vomiting Last Admin: 07/05/17 20:16 Dose: 4 mg Oxycodone/Acetaminophen (Percocet 5/325) 1 tab P O BID [facility] Last Admin: 07/06/17 09:45 Dose: 1 tab Buprenorphine [ (Butrans] 1 Patch) 0 each TOP Q7 D [facility] Promethazine HCl (Phenergan) 50 mg PO Q4H PRN PRN Reason: Nausea Last Admin: 07/06/17 01:27 Dose: 50 mg Quetiapine Fumarate (Seroquel Xr) 150 mg PO QPM [facility] Last Admin: 07/05/17 20:15 Dose: 150 mg Sodium Chloride (Flush - Normal Saline) 10 ml IV F Q12HR [facility] Last Admin: 07/06/17 08:17 Dose: 10 ml Sodium Chloride (Flush - Normal Saline) 10 ml IV F PRN PRN PRN Reason: Saline Flush Tizanidine HCl (Zanaflex) 4 mg PO BID [facility] Last Admin: 07/06/17 08:11 Dose: 4 mg Ursodiol (Actigal) 300 mg PO TID-WM [facility] Last Admin: 07/06/17 12:06 Dose: 300 mg <Electronically signed by Eh Henderson MD> 07/06 1346 2017-07-06 [facility] Name: KHOA CLEMENTEJose Luis Bolton LSJH 00:31:00-00:[address] : 1960, Age: 56, Sex: JERONIMO Ortega [address] Unit #: [id number], Status: ADM IN [phone] Location: [address] Report Dict Dr.: Jose Luis Roemro MD Admission Date: 07/03/17 Report #: [id number] Discharge Date: CC: Bita Hatfield NP, Christopher [...] she was diagnosed with "biliary cirrhosis" in [facility] on many years ago and had multiple [...] consider transferring the patient back down to [place] to be seen by her ERCP speciali [...] Date/Time: 07/05/17 1411 Transcribed Date/Time: 07/05/17 1617 [employer] Well[employer] Director: OREN 2017-07-05 [facility] Name: YESSENIA BRODY Mariann Reeves STLSJH 14:45:00-00:[address] : 1960, Age: 56, Sex: JERONIMO Ortega [address] Unit #: [id number], Status: DIS IN [phone] Location: [address] Report Dict DrYoly: Mariann Reeves MD Admission Date: 07/03/17 Report #: [id number] Discharge Date: 07/09/17 CC: Hospitalist Progress Note [...] plan discussed w/ fam vincenzo, PT/OT, 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 Possible Liver biopsy on saturday per Gastrenterol ogy * . <Electronically signed by Mariann Reeves MD> 07/16/17 0407 2017-07-05 [facility] Name: YESSENIA BRODY Jose Luis Jaramillo LSJH 08:59:00-00:00 [address] : 1960, Age: 56, Sex: JERONIMO Ortega [address] Unit #: [id number], Status: ADM IN [phone] Location: [address] Report D[address].: Jose Luis Romero MD Admission Date: 07/03/17 Report #: [id number] Discharge Date: CC: Bita Hatfield NP, Christopher [...] with her intervent ional gastrologist tomorrow in [place], Dr. Ana María Agustin, she will follow up with him next week . If she needs further biliary intervention that would be the best place for her as it seems sh kenny has had some disorder requiring stents every 4 months. This probably would be on the scope for community Gastrology alexandro saeed. Reported By: Jose Luis Romero MD Electronically Signed Date/Time: 07/08/17 1205 Dictated Date/Time: 07/04/17 1727 Transcribed Date/Time: 07/04/17 1849 [employer] Wellness Director: OREN 2017-07-04 [facility] Name: YESSENIA BRODY Jose Luis Jaramillo LSJH 11:24:00-00:[address] : 1960, Age: 56, Sex: JERONIMO Ortega [address] Unit #: [id number], Status: ADM IN [phone] Location: [address] Attending Phys: Boogie Cox MD Discharge Date: Report #: [id number] Consulting Phys: Jose Luis Romero MD CC: [...] gastroenter ologist, Dr. Ana María Penny in [place] and had multiple biliary stents placed, at [...] bupropion patch every 7 days. PRESENT MEDICATIONS: [place], Valium, Lovenox, Pepcid, Cozaar, morphine, Zofran, Percocet, [...] [facility] At this time, she has no [...] records from her last individual gastrologist in [place] to see if we can obtain a diagnosis, which anastasia stokes has. Depending on findings on MRCP, she may or may not need an ERCP. We will also get markers PS C primary biliary cirrhosis and autoimmune liver disease. Reported By: Jose Luis Romero MD Electronically Signed Date/Time: 07/04/17 1433 Dictated Date/Time: 07/03/17 1544 Transcribed Date/Time: 07/03/17 1630 [employer] Wellness Director: YOLANDE 2017-07-04 [facility] Name: YESSENIA BRODY Mariann Reeves STLSJH 08:50:00-00:[address] : 1960, Age: 56, Sex: JERONIMO Ortega [address] Unit #: [id number], Status: DIS IN [phone] Location: [address] Report D[address] Dr.: Mariann Reeves MD Admission Date: 07/03/17 Report #: [id number] Discharge Date: 07/09/17 CC: Hospitalist Progress Note [...] by Mariann Reeves MD> 07/16/17 0407 2017-07-03 [facility] Name: YARI ALEMAN Eh Henderson [facility] 14:43:00-00:[address] : 1960, Age: 56, Sex: JERONIMO Ortega [address] Unit #: [id number], Status: ADM IN [phone] Location: [address] [place] [address] Eh Henderson MD Admission Date: 07/03/17 Report #: [id number] Discharge Date: CC: Bita Hatfield NP, Mohan MD Walker, Eric P MD HISTORY AND PHYSICAL REPORT DATE OF ADMISSION: 07/03/2017 CHIEF COMPLAINT: Abdominal pain. HISTORY OF PRESENT ILLNESS: This is a 56-year-old, morbidly obese, white female with a known past medical history of cholecyst ectomy and following which she was having persistent biliary cholestasis. She has recentl y moved from [place] to [place], [place], for her 's transfer, and she [...] time. Syste m reviewed are HEENT, CVS, REPAIR TECHNICIAN, respiratory, GI, , musculoskeletal, skin and integument, [...] rash, no pal chance. CENTRAL NERVOUS SYSTEM: Manager Transplant nial examination II-XII intact. No focal deficits [...] Date/Time: 07/03/17 1414 Transcribed Date/Time: 07/03/17 1442 Sports Fitness And Wellness Director: PRADEEP
[2022-10-02 11:42] LABS: Urine Bacteria None Seen /HPF (<20); Urine Bilirubin 1+ (Negative); Urine Blood Negative (Negative); Urine Clarity Extremely Turbid (Clear); Urine Color Yellow (Yellow); Urine Glucose TRACE (Negative); Urine Protein 1+ (Negative); Urine RBC <5 /HPF (None Seen); Urine Urobilinogen 3+ (Normal); Urine pH 6.5 (5.0-7.0)
[2022-10-02] MEDS ORDERED: ONDANSETRON 4 MG/2 ML VIAL ONE (11:42)
[2022-10-02] MEDS ORDERED: FAMOTIDINE 20 MG/2 ML VIAL IV ONE (11:42)
[2022-10-02] MEDS ORDERED: MORPHINE 4 MG/ML SYR ONE ×2 (11:42→15:29)
--- NOTE | 2022-10-02 11:56 | RAD REPORT ---
[facility] 11[facility]35 am CLINICAL HISTORY: COUGH COMPARISON: Chest Single View dated 06/01/2021; Abdomen 1 View (KUB) dated 01/22/2021; Chest Single V iew dated 08/25/2020; Chest Single View dated 12/17/2019; Abdomen Pelvis W Contrast dated 06/01/2021 TECHNIQUE: Portable AP view of the chest. FINDINGS: The lungs are clear. No pneumothorax or effusion. The cardiomediastinal contours are unre markable. IMPRESSION: No acute cardiopulmonary process.
[2022-10-02 12:07] LABS: SARS-CoV-2 Antigen Rapid Res Negative (Negative)
[2022-10-02 12:10] LABS: Absolute Lymphocytes (CBC) 0.8 K/uL (0.7-4.9); Hematocrit 37.6 % (36.0-45.0); MCV 92.1 fL (80-100); MPV 8.2 fL (7.6-11.3); RBC Red Blood Cell Count 4.08 M/uL (3.86-4.86)
[2022-10-02 12:39] LABS: Albumin 3.7 g/dL (3.4-5.0); Bilirubin Total 3.4 mg/dL (0.2-1.0); Potassium 2.8 mEq/L (3.5-5.1); Protein, Total 9.2 g/dL (6.4-8.2)
[2022-10-02] MEDS ORDERED: NA CHLORIDE 0.9% 500 ML ONE ×2 (12:40→14:26)
[2022-10-02] MEDS ORDERED: DIAZEPAM 10 MG/2 ML INJ SYRINGE ONE ×2 (12:58→16:38)
--- NOTE | 2022-10-02 13:44 | RAD REPORT ---
EXAM DESCRIPTION: CT - Abdomen Pelvis W Contrast - 10/02/2022 1:26 pm CLINICAL HISTORY: Abdominal pain/upper abdominal pain COMPARISON: July 2022 and 2020 TECHNIQUE: Computed axial tomography of the abdomen pelvis was obtained. 100 cc Isovue-300 was admin istered intravenously. Oral contrast was not requested which limits evaluation of bowel and appendix All CT scans are performed using dose optimization technique as appropriate and may include automated exposure control or mA/KV adjustment according to patient size. FINDINGS: The liver, spleen, pancreas, adrenal and kidneys appear unremarkable. There is no evidence of diverticulitis. Cholecystectomy Moderate amount stool within the colon Small amount of air within vagina unchanged prior exams No adnexal mass Old fracture left acetabulum IMPRESSION: No acute abnormality is displayed.
[2022-10-02] MEDS ORDERED: POTASSIUM 25 MEQ EFFERV TAB ONE (14:26)
[2022-10-02] MEDS ORDERED: HYDRALAZINE HCL 20 MG/ML VIAL ONE (14:26)
[2022-10-02] MEDS ORDERED: KCL 20 MEQ/100 mL IVPB 100 ML IV ONE (14:27)
--- NOTE | 2022-10-02 18:01 | ER ---
Nurse's Notes [facility] Name: Yessenia Aleman Age: 61 yrs Sex: Female : 1960 Arrival Date: 10/02/2022 Time: 10:49 Bed 17 Private MD: Diagnosis: Anxiety disorder, unspecified;Acute pharyngitis, unspecified;Nausea;Upper abdominal pain, unspecified;Hypertensive heart disease without heart failure Presentation: 10/02 10:58 Chief complaint: Patient states: sore throat about 2 days ago , chills, not eating , iw nauseated this morning and stomach pains. Coronavirus screen: Client denies travel out of the [place] in the last 14 days. Ebola Screen: No symptoms or risks identified at this time. Initial Sepsis Screen: Does the patient meet any 2 criteria? No. Patient's initial sepsis screen is negative. Does the patient have a suspected source of infection? No. Patient's initial sepsis screen is negative. Risk Assessment: Do you want to hurt yourself or someone else? Patient reports no desire to harm self or others. Onset of symptoms was September 30, 2022. 10:58 Method Of Arrival: Ambulatory iw 10:58 Acuity: HOLLI 3 iw Triage Assessment: 13:38 General: Appears in no apparent distress. comfortable, Behavior is calm, cooperative. db Pain: Complains of pain in neck. EENT: Reports sore throat. Historical: - Allergies: 11:00 No Known Allergies; iw - PMHx: 11:00 Anxiety; Arthritis; biliary chirrosis; biliary disease; Cirrhosis; Hypertension; iw Pancreatitis; - PSHx: 11:00 Appendectomy; Biliary stent removal; Biliary stents; Cholecystectomy; iw - Immunization history:: Adult Immunizations unknown. - Social history:: Smoking status: Patient denies any tobacco usage or history of. Screenin:26 [place] ED Fall Risk Assessment (Adult) History of falling in the last 3 months, iw including since admission. Abuse screen: Denies threats or abuse. Denies injuries from another. Nutritional screening: No deficits noted. Tuberculosis screening: No symptoms or risk factors identified. Assessment: 11:04 Reassessment: patient ambulatory to restroom. db 12:04 Reassessment: IV miss attempts by student and staff. Will attempt IV access. db 13:23 Reassessment: pt to CT. db 13:38 Reassessment: Patient appears in no apparent distress at this time. Patient and/or db family updated on plan of care and expected duration. Pain level reassessed. Patient is alert, oriented x 3, equal unlabored respirations, skin warm/dry/pink. General: Appears in no apparent distress. comfortable, Behavior is calm, cooperative. Neuro: Level of Consciousness is awake, alert, obeys commands, Oriented to person, place, time, situation, Speech is normal. Respiratory: Airway is patent Respiratory effort is even, unlabored, Respiratory pattern is regular, symmetrical, Breath sounds are clear. GI: Abdomen is flat, Reports nausea, vomiting. EENT: Throat is pink. 14:36 Reassessment: Patient appears in no apparent distress at this time. Patient and/or db family updated on plan of care and expected duration. Pain level reassessed. Patient is alert, oriented x 3, equal unlabored respirations, skin warm/dry/pink. Patient states feeling better. Patient states symptoms have improved. 14:37 Reassessment: Patient appears in no apparent distress at this time. Patient and/or db family updated on plan of care and expected duration. Pain level reassessed. Patient is alert, oriented x 3, equal unlabored respirations, skin warm/dry/pink. Patient states feeling better. 15:14 Reassessment: patient complaining of abdominal pain. notified provider. db 17:54 Reassessment: provider speaking with patient. db 18:31 Reassessment: Patient appears in no apparent distress at this time. Patient and/or db family updated on plan of care and expected duration. Pain level reassessed. Patient is alert, oriented x 3, equal unlabored respirations, skin warm/dry/pink. Patient states feeling better. Vital Signs: 10:58 BP 159 / 110; Pulse 123; Resp 18; Temp 98.4; Pulse Ox 100% on R/A; Weight 61.23 kg; iw Height 5 ft. 0 in. ; 12:30 BP 183 / 99; Pulse 58; Resp 16; Pulse Ox 96% on R/A; db 13:30 BP 189 / 122; Pulse 64; Resp 16; Pulse Ox 96% on R/A; db 14:00 BP 154 / 106; Pulse 92; Resp 16; Pulse Ox 96% on R/A; db 14:30 BP 151 / 108; Pulse 97; Resp 18; Pulse Ox 100% on R/A; db 15:30 BP 137 / 101; Pulse 104; Resp 18; Pulse Ox 98% on R/A; db 16:30 BP 136 / 107; Pulse 115; Resp 18; Pulse Ox 100% ; db 18:00 BP 136 / 103; Pulse 105; Resp 16; Pulse Ox 98% on R/A; db 10:58 Body Mass Index 26.36 (61.23 kg, 152.4 cm) iw ED Course: 10:55 Patient arrived in ED. cc5 11:00 Triage completed. iw 11:01 Arm band placed on. iw 11:04 Catherine Richardson, LUCIUS is Primary Nurse. db 11:04 Kyler Voss PA is PHCP. cp 11:04 Matthew Magallon MD is Attending Physician. cp 11:36 XRAY Chest (1 view) In Process Unspecified. EDMS 11:45 Missed attempt(s): 20 gauge in left forearm. db 12:03 Missed attempt(s): 20 gauge in right antecubital area. Bleeding controlled, band aid db applied, catheter tip intact. 12:25 Inserted saline lock: 22 gauge in right wrist, using aseptic technique. iw 13:28 CT Abd/Pelvis - IV Contrast Only In Process Unspecified. EDMS 13:39 Patient has correct armband on for positive identification. Bed in low position. Call db light in reach. Side rails up X2. Client placed on continuous cardiac and pulse oximetry monitoring. NIBP monitoring applied. Warm blanket given. 14:36 No provider procedures requiring assistance completed. db 18:00 IV discontinued, intact, bleeding controlled, Pressure dressing applied. db Administered Medications: 12:25 Drug: Famotidine IVP 20 mg Route: IVP; Site: right wrist; iw 12:25 Drug: Ondansetron IVP 4 mg Route: IVP; Site: right wrist; iw 12:25 Drug: morphine IVP or IV 4 mg Route: IVP; Infused Over: 4 mins; Site: right wrist; iw 14:35 Follow up: Response: No adverse reaction db 12:34 Drug: NS 0.9% IV 500 ml Route: IV; Rate: bolus; Site: right wrist; iw 13:30 Follow up: Response: No adverse reaction; IV Status: Completed infusion; IV Intake: db 500ml 12:56 Drug: Diazepam IVP 2 mg Route: IVP; Site: right wrist; db 14:35 Follow up: Response: No adverse reaction db 14:25 Drug: Potassium PO Effervescent Tablet 50 mEq Route: PO; db 14:30 Drug: hydrALAZINE IVP 10 mg Route: IVP; Site: right wrist; db 14:32 Drug: NS 0.9% IV 500 ml Route: IV; Rate: 250 ml/hr; Site: right wrist; db 17:00 Follow up: Response: No adverse reaction; IV Status: Completed infusion; IV Intake: db 500ml 14:32 Drug: Potassium Chloride IV 20 mEq Route: IV; Rate: calculated rate; Site: right wrist; db 15:22 Drug: morphine IVP or IV 4 mg Route: IVP; Infused Over: 4 mins; Site: right forearm; db 16:30 Drug: Diazepam IVP 2 mg Route: IVP; Site: right wrist; db 18:22 Drug: Losartan PO 50 mg Route: PO; db 18:22 Drug: Tussionex Pennkinetic ER PO Suspension 5 ml Route: PO; db Medication: 14:36 VIS not applicable for this client. db Intake: 13:30 IV: 500ml; Total: 500ml. db 17:00 IV: 500ml; Total: 1000ml. db Outcome: 18:00 Discharged to home ambulatory, with friend. db 18:00 Condition: stable 18:00 Discharge instructions given to patient, Instructed on discharge instructions, follow up and referral plans. Prescriptions given X 4. 18:01 Discharge ordered by . cp 18:33 Patient left the ED. db Signatures: Dispatcher [employer] Shabana Mora RN Kyler Hatch PA PA cp Benton, Danielle, RN RN db Castro, Clarissa cc5 Corrections: (The following items were deleted from the chart) 11:02 10:58 Pulse 123bpm; Resp 18bpm; Pulse Ox 100% RA; Temp 98.4F; 61.23 kg; Height 5 ft. 0 iw in.; BMI: 26.3; iw 11:02 10:58 BP 159 / 117; Pulse 123bpm; Resp 18bpm; Pulse Ox 100% RA; Temp 98.4F; 61.23 kg; iw Height 5 ft. 0 in.; BMI: 26.3; iw 18:33 18:31 Reassessment: Patient appears in no apparent distress at this time. Patient db and/or family updated on plan of care and expected duration. Pain level reassessed. Patient is alert, oriented x 3, equal unlabored respirations, skin warm/dry/pink. db
--- NOTE | 2022-10-02 18:02 | EDPHYS ---
Physician Documentation [facility] Name: Yessenia Aleman Age: 61 yrs Sex: Female : 1960 Arrival Date: 10/02/2022 Time: 10:49 Bed 17 Private MD: ED Physician Matthew Magallon HPI: 10/02 11:25 This 61 yrs old Female presents to ER via Ambulatory with complaints of Sore cp Throat, Nausea. 11:25 The patient presents with sore throat. cp 11:25 The patient describes throat pain as scratchy. Onset: The symptoms/episode cp began/occurred 2 day(s) ago. Severity of symptoms: in the emergency department the symptoms are unchanged, despite home interventions. Associated signs and symptoms: Pertinent positives: cough, nausea, right upper abdomen pain. Patient tearful during interview. Reports increased anxiety due to currently going through divorce. Patient admits to stopping anxiety and depression meds over past couple months but reports DR Astorga prescribed Ativan for anxiety in the past. Historical: - Allergies: 11:00 No Known Allergies; iw - PMHx: 11:00 Anxiety; Arthritis; biliary chirrosis; biliary disease; Cirrhosis; Hypertension; iw Pancreatitis; - PSHx: 11:00 Appendectomy; Biliary stent removal; Biliary stents; Cholecystectomy; iw - Immunization history:: Adult Immunizations unknown. - Social history:: Smoking status: Patient denies any tobacco usage or history of. ROS: 11:30 Constitutional: Positive for poor PO intake, Negative for fever. cp 11:30 Eyes: Negative for injury, pain, redness, and discharge. cp 11:30 Cardiovascular: Negative for chest pain. 11:30 Respiratory: Positive for cough. 11:30 Abdomen/GI: Positive for abdominal pain, nausea and vomiting, anorexia, Negative for diarrhea, constipation, hematemesis, black/tarry stool, rectal bleeding. 11:30 ENT: Positive for sore throat, Negative for drainage from ear(s), ear pain, sinus cp congestion, sinus pain, difficulty swallowing, difficulty handling secretions. 11:30 Back: Negative for pain at rest, pain with movement. 11:30 : Negative for urinary symptoms. 11:30 Neuro: Negative for altered mental status, headache, numbness, syncope. 11:30 All other systems are negative. Exam: 11:33 Constitutional: The patient appears in no acute distress, alert, awake, cp non-diaphoretic, non-toxic, well developed, well nourished, anxious. 11:33 Head/Face: Normocephalic, atraumatic. cp 11:33 Eyes: Periorbital structures: appear normal, Pupils: equal, round, and reactive to light and accomodation, Conjunctiva: normal, no exudate, no injection, Sclera: no appreciated abnormality, Lids and lashes: appear normal, bilaterally. 11:33 ENT: External ear(s): are unremarkable, Ear canal(s): are normal, clear, TM's: dullness, bilaterally, Nose: is normal, Mouth: Lips: moist, Oral mucosa: pink and intact, moist, Posterior pharynx: Airway: no evidence of obstruction, patent, Tonsils: no enlargement, no exudate, swelling, is not appreciated, erythema, is not appreciated, exudate, is not appreciated, Voice: is normal. 11:33 Neck: ROM/movement: is normal, is supple, no meningismus, no nuchal rigidity, Lymph nodes: no appreciated lymphadenopathy. 11:33 Chest/axilla: Inspection: normal. 11:33 Cardiovascular: Rate: tachycardic, Rhythm: regular, Edema: is not appreciated, JVD: is not appreciated. 11:33 Respiratory: the patient does not display signs of respiratory distress, Respirations: normal, no use of accessory muscles, no retractions, no tachypnea, labored breathing, is not present, intercostal retractions, are absent, shallow respirations, are not present. 11:33 Abdomen/GI: Inspection: abdomen appears normal, Bowel sounds: active, all quadrants, Palpation: soft, in all quadrants, moderate abdominal tenderness, in the right upper quadrant, rebound tenderness, is not appreciated, voluntary guarding, is elicited in the right upper quadrant. 11:33 Back: CVA tenderness, is absent. 11:33 Skin: cellulitis, is not appreciated, no rash present. 11:33 Neuro: Orientation: to person, place \T\ time. Mentation: is normal, Cerebellar function: is grossly normal, Motor: moves all fours, strength is normal, Sensation: is normal. 11:33 Psych: Affect is animated, Judgement / Insight is normal. Delusions/hallucinations are not present. 12:47 ECG was reviewed by the Attending Physician. cp 16:45 ECG was reviewed by the Attending Physician. cp Vital Signs: 10:58 BP 159 / 110; Pulse 123; Resp 18; Temp 98.4; Pulse Ox 100% on R/A; Weight 61.23 kg; iw Height 5 ft. 0 in. ; 12:30 BP 183 / 99; Pulse 58; Resp 16; Pulse Ox 96% on R/A; db 13:30 BP 189 / 122; Pulse 64; Resp 16; Pulse Ox 96% on R/A; db 14:00 BP 154 / 106; Pulse 92; Resp 16; Pulse Ox 96% on R/A; db 14:30 BP 151 / 108; Pulse 97; Resp 18; Pulse Ox 100% on R/A; db 15:30 BP 137 / 101; Pulse 104; Resp 18; Pulse Ox 98% on R/A; db 16:30 BP 136 / 107; Pulse 115; Resp 18; Pulse Ox 100% ; db 18:00 BP 136 / 103; Pulse 105; Resp 16; Pulse Ox 98% on R/A; db 10:58 Body Mass Index 26.36 (61.23 kg, 152.4 cm) iw MDM: 11:05 Patient medically screened. cp 18:00 Data reviewed: vital signs, nurses notes, lab test result(s), EKG, radiologic studies, cp CT scan, plain films. 18:00 Differential diagnosis: group A strep tonsillitis, mononucleosis, peritonsillar abscess cp retropharyngeal abcess. Consideration of Admission/Observation Escalation of care including admission/observation considered. I considered the following discharge prescriptions or medication management in the emergency department Medications were administered in the Emergency Department. See MAR. Care significantly affected by the following chronic conditions: Hypertension, Liver Disease. 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 Response to treatment: the patient's symptoms have markedly improved after treatment, and as a result, I will discharge patient. 10/02 11:20 Order name: CBC with Diff; Complete Time: 12:28 cp 10/02 12:30 Interpretation: Normal except: HIRAM% 82.0; LYM% 10.0. cp 10/02 11:20 Order name: CMP; Complete Time: 13:45 cp 10/02 13:46 Interpretation: Normal except: NA 132; K 2.8; GLUC 113; GFR 86; AST 162; ALT 172; ALK cp 1246; BILIT 3.4; TP 9.2; GLOB 5.5; A/G 0.7. 10/02 11:20 Order name: Lipase; Complete Time: 13:45 cp 10/02 11:20 Order name: Urinalysis w/ reflexes; Complete Time: 12:28 cp 10/02 12:31 Interpretation: Normal except: [facility] Extremely Turbid; UGLUC TRACE; UBILI 1+; UPROT 1+; cp UUROB 3+. 10/02 11:20 Order name: Lactate w/ 2H reflex if indic.; Complete Time: 12:28 cp 10/02 11:20 Order name: Strep cp 10/02 11:20 Order name: [place] Screen Profile; Complete Time: 12:28 cp 10/02 11:20 Order name: SARS RAPID; Complete Time: 12:28 cp 10/02 11:20 Order name: Influenza Screen (a \T\ B); Complete Time: 12:28 cp 10/02 12:01 Order name: Throat Culture EDCA 10/02 11:20 Order name: XRAY Chest (1 view); Complete Time: 12:28 cp 10/02 12:32 Order name: CT Abd/Pelvis - IV Contrast Only; Complete Time: 13:45 cp 10/02 11:20 Order name: EKG; Complete Time: 11:21 cp 10/02 11:20 Order name: IV Saline Lock; Complete Time: 11:44 cp 10/02 11:20 Order name: Labs collected and sent; Complete Time: 11:45 cp 10/02 11:20 Order name: EKG - Nurse/Tech; Complete Time: 13:38 cp 10/02 16:25 Order name: EKG - Nurse/Tech; Complete Time: 16:41 cp EC:47 Rate is 102 beats/min. Rhythm is regular. PA interval is normal. QRS interval is cp normal. QT interval is normal. T waves are Inverted in lead aVR. Interpreted by me. Reviewed by me. 16:45 Rate is 115 beats/min. Rhythm is regular. PA interval is normal. QRS interval is cp normal. QT interval is normal. T waves are Inverted in lead aVR. Interpreted by me. Reviewed by me. Administered Medications: 12:25 Drug: Famotidine IVP 20 mg Route: IVP; Site: right wrist; iw 12:25 Drug: Ondansetron IVP 4 mg Route: IVP; Site: right wrist; iw 12:25 Drug: morphine IVP or IV 4 mg Route: IVP; Infused Over: 4 mins; Site: right wrist; iw 14:35 Follow up: Response: No adverse reaction db 12:34 Drug: NS 0.9% IV 500 ml Route: IV; Rate: bolus; Site: right wrist; iw 13:30 Follow up: Response: No adverse reaction; IV Status: Completed infusion; IV Intake: db 500ml 12:56 Drug: Diazepam IVP 2 mg Route: IVP; Site: right wrist; db 14:35 Follow up: Response: No adverse reaction db 14:25 Drug: Potassium PO Effervescent Tablet 50 mEq Route: PO; db 14:30 Drug: hydrALAZINE IVP 10 mg Route: IVP; Site: right wrist; db 14:32 Drug: NS 0.9% IV 500 ml Route: IV; Rate: 250 ml/hr; Site: right wrist; db 17:00 Follow up: Response: No adverse reaction; IV Status: Completed infusion; IV Intake: db 500ml 14:32 Drug: Potassium Chloride IV 20 mEq Route: IV; Rate: calculated rate; Site: right wrist; db 15:22 Drug: morphine IVP or IV 4 mg Route: IVP; Infused Over: 4 mins; Site: right forearm; db 16:30 Drug: Diazepam IVP 2 mg Route: IVP; Site: right wrist; db 18:22 Drug: Losartan PO 50 mg Route: PO; db 18:22 Drug: Tussionex Pennkinetic ER PO Suspension 5 ml Route: PO; db Disposition Summary: 10/02/22 18:01 Discharge Ordered Location: Home cp Problem: an ongoing problem cp Symptoms: have improved cp Condition: Stable cp Diagnosis - Anxiety disorder, unspecified cp - Acute pharyngitis, unspecified cp - Nausea cp - Upper abdominal pain, unspecified cp - Hypertensive heart disease without heart failure cp Followup: cp - With: Private Physician - When: 2 - 3 days - Reason: Recheck today's complaints Discharge Instructions: - Discharge Summary Sheet cp - Abdominal Pain, Adult cp - Hypertension, Adult cp - Pharyngitis cp - Generalized Anxiety Disorder, Adult cp - Managing Anxiety, Adult cp Forms: - Medication Reconciliation Form cp - Thank You Letter cp - Antibiotic Education cp - Prescription Opioid Use cp Prescriptions: - losartan 100 mg Oral tablet - take 1 tablet by ORAL route daily; 30 tablet; Refills: 0, Product Selection cp Permitted - Hydroxyzine HCl 50 mg Oral Tablet - take 1 tablet by ORAL route every 8 hours As needed; 20 tablet; Refills: 0, cp Product Selection Permitted - Protonix 40 mg Oral Tablet - take 1 tablet by ORAL route once daily; 30 tablet; Refills: 0, Product cp Selection Permitted - Zofran 4 mg Oral Tablet - take 1 tablet by ORAL route every 12 hours As needed; 20 tablet; Refills: 0, cp Product Selection Permitted Signatures: Dispatcher [employer] Shabana Mora, RN RN Kyler Carroll PA PA Catherine Kennedy, RN RN db
[2022-10-02] MEDS ORDERED: HYDROCODONE/CHLORPHEN 5 ML/OSYR ONE (18:32)
[2022-10-02] MEDS ORDERED: LOSARTAN POTASSIUM 50 MG TABLET ONE (18:32)
[2022-10-02 18:48] VITALS: TEMP 98.4
[2022-10-02 19:01] VITALS: BP 136/103; O2SAT 98
--- NOTE | 2022-10-03 19:09 | EKG ---
Test Date: 2022-10-02 Test Time: 16:39:00 Taxonomist: DEONTE MEASUREMENT RESULTS: Intervals: Rate: 115 LA: 144 QRSD: 70 QT: 330 QTc: 456 [place]: P: 40 LA: 144 QRS: -18 T: 43 INTERPRETIVE STATEMENTS: Sinus tachycardia Anterolateral infarct, age undetermined Abnormal ECG Compared to ECG 10/02/2022 12:40:51 No significant changes Electronically Signed On 10-03-22 19:08:40 CDT by Cj Fontenot
--- NOTE | 2022-10-03 19:12 | EKG ---
Test Date: 2022-10-02 Test Time: 12:40:51 Warehouse Packer: DEONTE MEASUREMENT RESULTS: Intervals: Rate: 102 VA: 146 QRSD: 76 QT: 360 QTc: 469 [place]: P: 40 VA: 146 QRS: -28 T: 42 INTERPRETIVE STATEMENTS: Poor data quality, interpretation may be adversely affected Sinus tachycardia Anterolateral infarct, age undetermined Abnormal ECG Compared to ECG 08/05/2022 12:31:10 Myocardial infarct finding now present Sinus rhythm no longer present Electronically Signed On 10-03-22 19:09:32 CDT by Cj Fontenot
== END 2022-10-02 18:33 | disposition home or self-care (01) ==
LOC: ER 10:49
DX: J02.9 Acute pharyngitis, unspecified (principal); F41.9 Anxiety disorder, unspecified; R11.0 Nausea; I11.9 Hypertensive heart disease without heart failure; R10.10 Upper abdominal pain, unspecified; I10 Essential (primary) hypertension; Z20.822 Contact with and (suspected) exposure to COVID-19
CPT/HCPCS: 87070; 85025; 81001; 36415; 86308; 87081; 83605; 83690; 80053; 87804 ×2; 74177; 71045; 87811; Q9967; J3480; J0360; J3360 ×2; J2405; J7040 ×2; 93005

== ENCOUNTER 2022-10-03 14:55 | Emergency (ER) | payer OTHER ==
--- OUTSIDE RECORDS SUMMARY | 2022-10-03 15:43 | XMS REPORT | Continuity of Care Document ---
:1960 Author Organization [facility] t Address [address] [place] [address] Care Team Providers Name Role Phone Maximo [...] Attending Clinician Chantale WEBSTER, Madhav Attending Clinician Jovita KAN, Lanny Attending Clinician Unavailable PASHA HINOJOSA Attending Clinician Unavailable Jadyn Skaggs DO Attending Clinician Juan Luis WEBSTER, Rigoberto Attending Clinician Pasha Hinojosa MD Attending Clinician JUDY WEISS Attending Clinician Unavailable Judy Weiss MD Attending Clinician [phone] MILAGROS OHARA Attending Clinician Unavailable ELYSSA MAXWELL Attending Clinician Unavailable gNuyễn Montano MD Attending Clinician Elyssa Maxwell DO Attending Clinician MEKA HAMMONDS Attending Clinician Unavailable Meka Hammonds NP Attending Clinician VIRA WASHBURN Attending Clinician Unavailable Doctor Unassigned, [place] Attending Clinician Unavailable MARIANA RAMIREZ Attending Clinician Unavailable ZULEMA RODRIGUEZ JR Attending Clinician Unavailable Jennifer Cervantes DPM, Ronald E Attending Clinician Abe Arana CRNA Attending Clinician Elyssa Jerome MD Attending Clinician Only, Adc Test Attending Clinician Unavailable Pob, Adc Lab Main Attending Clinician Unavailable Trinidad KAN, Cyn Linda Attending Clinician Unavailable RAF GREENE Attending Clinician Unavailable Jaki Llamas Attending Clinician Raf Greene DO Attending Clinician Wayne WEBSTER, Won Roper Attending Clinician MARU BAEZ Attending Clinician Unavailable Maru Baez DO Attending Clinician DANIEL GRADY Attending Clinician Unavailable Ysabel WEBSTER, Daniel Attending Clinician Ananya WEBSTER, Gulshan Hawley Attending Clinician EBCONSUELO SCHERER Attending Clinician Unavailable Ebrahim HOUSING COURT JUDGE, Rania Attending Clinician Kelly KAN, Kelsy Lemon Attending Clinician Unavailable Nurse, [facility] Attending Clinician Unavailable Manoj PERRIN, Korina Attending Clinician KORINA ALBERTO Attending Clinician Unavailable OLGA LIDIA ORNELAS Attending Clinician Unavailable Gustavo, Ang Jaiden Uc Attending Clinician Unavailable Hakeem WEBSTER, Olga Lidia Attending Clinician ROSALINDA FISHER Attending Clinician Unavailable Isabelle WEBSTER, Rosalinda Upton Attending Clinician Karo KAN, Karlene Hawley Attending Clinician Unavailable Fe WEBSTER, Vira Linda Attending Clinician Edgar PERRIN, Eliana Feliciano Attending Clinician ELIANA POOLE Attending Clinician Unavailable Kadi Duggan MD Attending Clinician Uriel Santo MD Attending Clinician URIEL SANTO Attending Clinician Unavailable Maisha Bledsoe Attending Clinician MAISHA REYES Attending Clinician Unavailable SULAIMAN MARSH Attending Clinician Unavailable Moise Gamez MD Attending Clinician Jaki POLANCO Attending Clinician Unavailable Rayray Ayala MD, Dominguez Attending Clinician Kirstin Rey Attending Clinician Lab, Adc Fam Pob I Attending Clinician Unavailable Kayy CUELLOP, Loyda Attending Clinician Jeannie Slade Attending Clinician Kenan WEBSTER, Gabriele Goodman Attending Clinician Mazin WEBSTER, Katheryn Attending Clinician Diego Grigsby MD, Kobi Attending Clinician GABRIELE GRAYSON Attending Clinician Unavailable JADYN SKAGGS Attending Clinician Unavailable Christina WEBSTER, Milagros L Attending Clinician Ector Barnett S Attending Clinician Luis KAN, Pricilla Attending Clinician Edwardo WEBSTER, Sundar Attending Clinician Artur WEBSTER, Carlito Attending Clinician Gisselle MaiC Attending Clinician Unavailable Boogie Cox Attending Clinician [...] Clinician WON MALONE Admitting Clinician Unavailable Won Maloen MD Admitting Clinician MARU BAEZ Admitting Clinician Unavailable PASHA HINOJOSA Admitting Clinician Unavailable Pasha Hinojosa MD Admitting Clinician Ananya WEBSTER, Gulshan Hawley Admitting Clinician MARIANA RAMIREZ Admitting Clinician Unavailable CONSUELO AVENDAÑO Admitting Clinician Unavailable ROSALINDA FISHER Admitting Clinician Unavailable ELIANA POOLE Admitting Clinician Unavailable Urban WEBSTER, Kadi Admitting Clinician KADI DUGGAN Admitting Clinician Unavailable Keira WEBSTER, Moise Goodman Admitting Clinician Jaki POLANCO Admitting Clinician Unavailable Diego Grigsby MD, Kobi Admitting Clinician GABRIELE GRAYSON Admitting Clinician Unavailable JADYN SKAGGS Admitting Clinician Unavailable Artur WEBSTER, [facility] Admitting Clinician Boogie Cox Admitting Clinician Unavailable Payers Payer Name Policy Type Policy Number Effective Date Expiration Date S nasra [employer] [id number] 2021 [place] 00:00:00 MEDICARE PART A [id number] 2015 \\T\\ B 00:00:00 CIGNA II [id number] 2018 00:00:00 MEDICARE A B [id number] 2015 00:00:00 CIGNA [id number] 2018 HMO/POS/OPEN 00:00:00 ACCESS BCBS OS [id number] 2010 2020 POS/PPO/EPO 1 00:00:00 00:00:00 Cigna Preferred 53 [id number] 2021 [facility] Medicare (HMO) 00:00:00 - [facility] CIGNA 53 [id number] 2018 [facility] 00:00:00 [facility] MEDICARE MB [id number] 2016 [facility] NOVITAS 00:00:00 [facility] Problems Condition Condition Condition Status Onset Resolution Last Treating Co mments Source Name Details Category Date Date Treatment Clinician Date Hepatitis Hepatitis Disease Active Uni vers 04-25 ity of 00:00: [place] 00 Medical Branch Left lower Left lower Disease Active 2021- U nivers quadrant quadrant 0-25 ity of [...] acute is, acute 5-25 [facility] s 00:00: [place] [address] Center 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[facility] cirrhosis cirrhosis 00:00: [address] S/P ERCP S/P ERCP Disease [facility] 00:[facility]: [address] Cerebrovas Cerebrovas Disease Active 2019- U nivers cular cular 0-22 ity of accident accident 00:00: [place] (CVA) due (CVA) due 00 [facility] 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 Arthritis Arthritis Disease Active 2019-04 Uni vers 0-21 ity of 00:00: [place] [facility] Toxic Toxic Disease Active 2019- Univers metabolic metabolic 0-20 ity of encephalop encephalop 00:00: Dom mao athy athy Medical Branch Altered Altered Disease Active 2019- Univers mental mental 0-18 ity of status status 00:00: [place] [facility] Abdominal Abdominal Disease Active 2019-0 Uni vers pain pain 8-03 ity of 00:00: [place] [facility] Acute Acute Disease Active 2019-0 Univers abdominal abdominal 8-03 ity of pain pain 00:00: [place] [facility] Peripheral Peripheral Disease Active 2019-0 U nivers nerve nerve 7-10 ity of disease disease 00:00: [place] 00 Medical Branch Choledocho Choledocho Disease Active 2018-0 U nivers lithiasis lithiasis 7-20 ity of 00:00: [place] 00 Medical Branch Constipati Constipati Disease Active 2018-0 U nivers on on 7-18 ity of 00:00: [place] [facility] Acute Acute Disease Active 2018-0 Univers appendicit appendicit 6-10 it y of is is 00:00: [place] 00 Medical Branch Transamini Transamini Disease Active U nivers tis tis 8-17 ity of 00:00: [place] 00 Medical Branch Acute Acute Disease Active Univers cystitis cystitis 8-15 ity of without without 00:00: [place] hematuria hematuria 00 [facility] Branch History of History of Disease Active U nivers biliary biliary 8-15 ity of duct [place] 00 [facility] Branch 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 8-15 it y of vomiting vomiting 00:00: [place] with with 00 Medical nausea nausea Branch Intractabl Intractabl Disease Active U nivers e e 8-15 ity of epigastric [place]igastric [place] abdominal abdominal 00 [facility] pain pain Branch Obesity Obesity Disease Active [...] periodic 7-27 Shari kes paralysis paralysis 00:00: [facility] 00 Center Biliary Biliary Disease Active [facility] [...] pain pain 1-08 [facility] 00:00: [facility] [place] 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 04-22 [facility] 00:00: Medical 00 [place] Elevated Elevated Disease Active 2012-04 [facility] liver liver 04-22 [facility] enzymes enzymes 00:00: Medical 00 [place] Hypertensi Hypertensi Disease Active 2012-[address] on on 04-22 [facility] 00:00: Medical 00 [place] Nausea & Nausea & Disease Active 2012-04 [facility] vomiting vomiting 04-22 [facility] 00:00: Medical 00 [place] Fatty Fatty Disease Active 2012-[address] liver liver 04-22 [facility] 00:00: Medical 00 [place] Alcohol Alcohol Disease Active 2012-[address] use use 04-22 [facility] 00:00: Medical 00 [place] Immunity Immunity Disease Active 2012-04 [facility] status status 04-22 [facility] testing testing 00:00: Medical 00 [place] Iron Iron Problem Common deficiency deficiency Sp roberta anemia anemia, - [facility] un[facility]ie [facility] d iron [facility] deficiency Medica l anemia Center type [id number] Neuropathy Problem Co mmon Spirit [facility] 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 - CHI hemorrhage disease St , without [facility]ukes perforatio Medica l n AND Center without obstructio n [id number] Other Problem Common chronic Spirit pain [facility] [id number] Osteoarthr Problem Co mmon itis Spirit involving - [facility] multiple St joints on [facility] both sides Medica l of body Center Gastroesop Gastroesop Problem C ommon hageal hageal Spirit reflux reflux - CHI disease disease St without without Lukes esophagiti esophagiti Sc dical s [facility] [id number] Moderately Problem Co mmon severe Spirit depression [facility] Adjustment Grieving Problem Com mon disorder Spirit with - CHI depressed [facility] Essential Essential Problem Com mon hypertensi hypertensi Sp roberta on on [facility] [id number] Anxiety Problem Common [facility] Primary Primary Problem Common insomnia insomnia [facility] [id number] Peptic Problem Common ulcer Spirit disease [facility] [id number] Post-menop Problem Com mon ausal Spirit bleeding [facility] [id number] Seasonal Problem Comm on allergies [facility] Allergies, Adverse Reactions, Alerts Allergy [...] ity of 00:00: [place] 00 Medical Branch Codeine Drug Active Rash 2012-[address] [facility] Allergy 0-30 [facility] 00:00: [facility] Center CODEINE Allergy Active High Rash 2012-04 [facility] 0-30 00:00: 00 NO KNOWN Drug Active Univers ALLERGIE Class ity of S [place] [facility] Family History Family Member Diagnosis Comments Start Date Stop Date Source Natural brother Cancer [facility] Social History Social Habit Start Date Stop Date Quantity Comments Source History SDOH University o f Alcohol Comment [place] Med ical Branch History SDOH Social Unive rsity of [facility] Med ical Together Branch History SDOH Social Unive rsity of [facility] Medical Branch History SDOH Social Unive rsity of [facility] Medical Membership Branch History SDOH Social Unive rsity of [facility] Medical Meetings Branch History of Tobacco [facility] - Use [facility] History SDOH 2022-07-31 2022-07-31 1 University o f Alcohol Frequency 00:00:00 00:00:00 [place] M edical Branch History SDOH 2022-07-31 2022-07-31 5 University o f Financial 00:00:00 00:00:00 [place] [facility] History SDOH Food 2022-07-31 2022-07-31 1 Univers ity of Worry 00:00:00 00:00:00 [place] [facility] History SDOH Food 2022-07-31 2022-07-31 1 Univers ity of Scarcity 00:00:00 00:00:00 [place] [facility] History SDTX 2022-07-31 2022-07-31 2 University o f Transport Med 00:00:00 00:00:00 [place] Medic al Branch History SDOH 2022-07-31 2022-07-31 2 University o f Transport Non-Med 00:00:00 00:00:00 [place] M edical Branch History SDTX Social 2022-07-31 2022-07-31 5 Unive rsity of Connections Phone 00:00:00 00:00:00 [place] M edical Branch History SDTX Social 2022-07-31 2022-07-31 5 Unive rsity of Connections Living 00:00:00 00:00:00 [place] [facility] History SDTX 2022-07-31 2022-07-31 0 University o f Physical Activity 00:00:00 00:00:00 [place] M edical DPW Branch History SDTX 2022-07-31 2022-07-31 0 University o f Physical Activity 00:00:00 00:00:00 [place] M edical MPS Branch History SDTX 2022-07-31 2022-07-31 2 University o f Housing Unable to 00:00:00 00:00:00 [place] M edical Pay Branch History SDTX 2022-07-31 2022-07-31 1 University o f Housing Places 00:00:00 00:00:00 [place] Medi brandy Lived Branch History SDTX 2022-07-31 2022-07-31 2 University o f Housing Homeless 00:00:00 00:00:00 [facility] dical Last Year Branch Exposure to 2022-07-20 2022-07-30 Not sure University of SARS-CoV-2 (event) 00:00:00 15:29:00 [place] [facility] History SDOH 2022-04-26 2022-04-26 0 University o f Alcohol Std Drinks 00:00:00 00:00:00 [place] [facility] History SDOH 2022-04-26 2022-04-26 1 University o f Alcohol Binge 00:00:00 00:00:00 [place] Medic al Branch Alcohol intake 2020-09-06 2020-09-[address] Sammy es 00:00:00 00:00:00 non-drinker of Medical Ce nter alcohol (finding) Tobacco use and 2018-11-15 2018-11-15 Smokeless Universit y of exposure 00:00:00 00:00:00 tobacco non-user [facility] Sex Ass[birth year] At [birth year] ANDRES Ahn 00:00:00 00:00:00 Medical Center Smoking Status Start Date Stop Date Source Never smoked tobacco [facility] Medications Ordered Filled Start Stop Current Ordering Indication Dosage Frequency Signature Comments Components Source Medication Medication Date Date Medication? Clinician (SIG) Name Name sucralfate 2022-0 Yes 1g 1 g, Oral, U nivers (CARAFATE) 4-18 AC+HS, ity of tablet 1 g 21:30: First dose T ex 00 on [facility] 07/31/22 at [place] 1630, Until Discontinu ed, Routine maalox:diph 2022-0 2022- No 15mL 15 mL, Uni vers enhydrAMINE 18 04-18 Oral, ity of :lidocaine 16:45: 16:17 ONCE, 1 Ar[place] as 2 % viscous 00 :00 dose, On Medi brandy 1:1:1 [facility] (FIRST-MOUT 07/31/22 at [facility]) 1145, oral Routine suspension 15 mL tiZANidine 2022-0 Yes 4mg Take 1 Unive rs 4 mg tablet 4-18 tablet by ity of 16:15: mouth in [place] [address] the Medical morning Branch and 1 tablet in the evening. traZODone 2022-0 Yes 150mg Take 1 Unive rs 150 mg 4-18 tablet by ity of tablet 16:15: mouth at [place] [address] bedtime. Medical Branch losartan 3-0 Yes 100mg Take 1 Univer s 100 mg 4-18 tablet by ity of tablet 16:15: mouth in [place] [address] the Medical morning. Branch gabapentin 2022-0 Yes 300mg Take 1 Univ ers 300 mg 4-18 capsule by ity of capsule 16:15: mouth in [place] [address] the Medical morning Branch and 1 capsule at noon and 1 capsule in the evening. proMETHazin 2022-0 Yes 25mg Take 1 Univ ers e 25 mg 4-18 tablet by ity of tablet 16:15: mouth [place] [address] every 4 Medical (four) Branch hours as needed. tiZANidine 3-0 Yes 4mg Take 1 Unive rs 4 mg tablet 4-18 tablet by ity of 16:15: mouth in [place] 48 the Medical morning Branch and 1 tablet in the evening. traZODone 2023-0 Yes 150mg Take 1 Unive rs 150 mg 4-18 tablet by ity of tablet 16:15: mouth at [place] [address] bedtime. Medical Branch losartan 3-0 Yes 100mg Take 1 Univer s 100 mg 4-18 tablet by ity of tablet 16:15: mouth in [place] [address] the Medical morning. Branch gabapentin 2023-0 Yes 300mg Take 1 Univ ers 300 mg 4-18 capsule by ity of capsule 16:15: mouth in [place] 48 the Medical morning Branch and 1 capsule at noon and 1 capsule in the evening. proMETHazin 3-0 Yes 25mg Take 1 Univ ers e 25 mg 4-18 tablet by ity of tablet 16:15: mouth [place] [address] every 4 Medical (four) Branch hours as needed. HYDROcodone 2022-0 Yes 1{tbl} 1 tablet, Univers -acetaminop 4-18 Oral, ity of hen (NORCO 14:39: Q6HPRN, [place] 5) 5-325 mg 28 Starting Medi brandy tablet 1 on [facility] tablet 07/31/22 at 0939, Until Discontinu ed, Routine, Pain (scale 7-10) losartan 2022-0 Yes 100mg 100 mg, Unive rs (COZAAR) 4-18 Oral, ity of tablet 100 14:00: DAILY, [place] mg 00 First dose Medical on [facility] 07/31/22 at 0900, Until Discontinu ed, Routine enoxaparin 2022-0 Yes 40mg 40 mg, Unive rs (LOVENOX) 4-18 Subcutaneo ity of injection 14:00: [place], [place], [place] 40 mg 00 First dose Medical on [facility] 07/31/22 at 0900, Until Discontinu ed, Routine pantoprazol 2022-0 Yes 40mg 40 mg, Univ ers e 4-18 Oral, BID, ity of (PROTONIX) 13:00: First dose [place] EC tablet 00 on [facility] 40 mg 07/31/22 at Branch 0800, Until Discontinu ed, Routine gabapentin 2022-0 Yes 300mg 300 mg, Uni vers (NEURONTIN) 4-18 Oral, TID, it y of capsule 300 13:00: First dose [place] mg 00 on [facility] 07/31/22 at Branch 0800, Until Discontinu ed, Routine morpHINE (2 2022-0 2022- No 2mg 2 mg, Slow Univers mg/mL) 07-31 IV Push, ity of injection 2 06:45: 06:10 ONCE, 1 [place] mg 00 :00 dose, On [facility] 07/31/22 at 0145, Routine maalox:diph 2022-0 2022- No 15mL 15 mL, Uni vers enhydrAMINE 07-31 Oral, ity of :lidocaine 06:45: 06:10 ONCE, 1 Ar[place] as 2 % viscous 00 :00 dose, On Medi brandy 1:1:1 [facility] (FIRST-MOUT 07/31/22 at [facility]) 0145, oral Routine suspension 15 mL tiZANidine Yes 4mg 4 mg, Univer s (ZANAFLEX) 07-31 Oral, BID, ity of tablet 4 mg 04:00: First dose [place] 00 on [facility] 07/30/22 at Branch 2300, Until Discontinu ed, Routine morpHINE (4 2022- No 4mg 4 mg, Slow Univers mg/mL) 07-31 IV Push, ity of injection 4 02:30: 01:46 ONCE, 1 [place] mg 00 :00 dose, On [facility] 07/30/22 at 2130, STAT ondansetron Yes 4mg 4 mg, Slow Univers (ZOFRAN 07-31 IV Push, ity of (PF)) 02:18: Q6HPRN, [place] injection 4 59 Starting Medi brandy mg on [facility] 07/30/22 at 2118, Until Discontinu ed, Routine, Nausea and Vomiting (N/V) morpHINE (2 2022-2022- No 2mg 2 mg, Slow Univers mg/mL) 07-31 IV Push, ity of injection 2 02:18: 14:39 Q4HPRN, [place] mg 50 :46 Starting Medical on [facility] Branch 07/30/22 at 2118, Until [facility] 07/31/22 at 0939, Routine, Pain (scale 7-10) acetaminoph 2023-0 Yes 650mg 650 mg, Un you en [...] [place] mg 00 :00 dose, On Medical [facility] Branch 07/30/22 at 1945, STAT pantoprazol 2022- Yes [id number] 40mg Take 1 Univers e 40 mg EC 07-31 tablet by ity of tablet 00:00: 04:59 mouth in [place] 00 :00 the Medical morning Branch and 1 tablet in the evening. Do all this for 30 days. sucralfate 2022- Yes [id number] 1g Take 1 Univers 1 gram 07-31 tablet by ity of tablet 00:00: 04:59 mouth [place] 00 :00 before Medical meals and Branch at bedtime for 30 days. pantoprazol 2022- Yes [id number] 40mg Take 1 Univers e 40 mg EC 07-31 tablet by ity of tablet 00:00: 04:59 mouth in [place] 00 :00 the Medical morning Branch and 1 tablet in the evening. Do all this for 30 days. sucralfate 2022- Yes [id number] 1g Take 1 Univers 1 gram 07-31 tablet by ity of tablet 00:00: 04:59 mouth [place] 00 :00 before Medical meals and Branch at bedtime for 30 days. HYDROcodone 2022- Yes [id number] 1{tbl} Take 1 U nivers -acetaminop 4-18 04-26 tablet by it y of hen 5-325 00:00: 04:59 mouth [place] mg tablet 00 :00 every 6 Medical (six) Branch hours as needed for Pain (scale 7-10) for up to 7 days. Indication s: acute pain HYDROcodone 2022- Yes 4647 1{tbl} Take 1 U nivers -acetaminop 07-31- tablet by it y of hen 5-325 [...] 100mg Take 100 Un you 100 mg 1-03 15-12 mg by ity of tablet 16:27: 00:00 mouth at [place] 25 :00 bedtime. Medical Branch losartan 2022-2022- No 100mg Take 100 Uni vers 100 mg -12 -12 mg by ity of tablet 16:27: 00:00 mouth [place] 25 :00 daily. Medical Branch gabapentin 2022-0 2022- No 300mg Take 300 U nivers 300 mg 1-12 -12 mg by ity of capsule 16:27: 00:00 mouth at [place] 25 :00 bedtime. Medical Branch QUEtiapine 2022- No 500mg Take 500 U nivers 400 mg 1-12 -12 mg by ity of tablet 16:27: 00:00 mouth in [place] 25 :00 the Medical morning. Branch Patient reports that she has real bad anxiety, her doctor just upped her dosage to 500 mg omeprazole 0 2022- No 20mg Take 20 mg Univers 20 mg 04-26 by mouth ity of tablet 16:27: 00:00 daily. [place] 25 :00 [facility] Branch tiZANidine 2022-0 2022- No 1 tablet Un you 2 mg tablet 04-26 as needed it y of 16:27: 00:00 [place] 25 :00 [facility] Branch escitalopra 2022-0 2022- No 5mg Take 5 mg Univers m oxalate 5 04-26 by mouth ity of mg tablet 16:27: 00:00 in the [place] 25 :00 morning. [facility] Branch traZODone Yes 100mg Take 100 Uni vers 100 mg 1-12 mg by ity of tablet 16:25: mouth at [place] [address] bedtime. [facility] Branch losartan 0 Yes 100mg Take 100 Univ ers 100 mg 1-12 mg by ity of tablet 16:25: mouth [place] [address] daily. [facility] Branch gabapentin 0 Yes 300mg Take 300 Un you 300 mg 1-12 mg by ity of capsule 16:25: mouth at [place] [address] bedtime. [facility] Branch QUEtiapine Yes 500mg Take 500 Un you 400 mg 1-12 mg by ity of tablet 16:25: mouth in [place] [address] the Medical morning. [place] Patient reports that she has real bad anxiety, her doctor just upped her dosage to 500 mg omeprazole Yes 20mg Take 20 mg U nivers 20 mg 12 by mouth ity of tablet 16:25: daily. [address] tiZANidine 0 Yes 1 tablet Uni vers 2 mg tablet 04-26 as needed ity of 16:25: [address] escitalopra 0 Yes 5mg Take 5 mg U nivers m oxalate 5 12 by mouth ity of mg tablet 16:25: in the [place] [address] morning. [facility] Branch HYDROcodone 0 Yes 1{tbl} 1 tablet, Univers -acetaminop 12 Oral, ity of hen (NORCO) 15:52: Q6HPRN, [place] as 10-325 mg 52 Starting Medica l tablet 1 on [place] Branch tablet 04/26/22 at 0952, Until Discontinu ed, Routine, Pain (scale 7-10) HYDROcodone 2022-0 Yes 1{tbl} 1 tablet, Univers -acetaminop 1-12 Oral, ity of hen (NORCO) 15:52: Q6HPRN, [place] as 10-325 mg 52 Starting Medica l tablet 1 on [place] Branch tablet 04/26/22 at 0952, Until Discontinu ed, Routine, Pain (scale 7-10) acetaminoph 2022-0 Yes 1{tbl} 1 tablet, Univers en-codeine 1-12 Oral, ity of (TYLENOL 15:52: Q4HPRN, [place] #3) 300-30 34 Starting Medic al mg tablet 1 on [place] Branch tablet 04/26/22 at 0952, Until Discontinu ed, Routine, Pain (scale 4-6) acetaminoph 2022-0 Yes 1{tbl} 1 tablet, Univers en-codeine 1-12 Oral, ity of (TYLENOL 15:52: Q4HPRN, [place] #3) 300-30 34 Starting Medic al mg tablet 1 on [place] Branch tablet 04/26/22 at 0952, Until Discontinu ed, Routine, Pain (scale 4-6) gadobenate 2022-0 2022- No [id number] .2mL/kg 13.28 mL Univers dimeglumine 04-26 (0.2 mL/kg i ty of (MULTIHANCE 15:30: 15:30 ?66.4 kg), [place] -15 mL) 00 :00 Intravenou Medica l injection s, ONCE, 1 Bran ch 13.28 mL dose, On Sat04/26/22 at 0930, Routine gadobenate 2022-0 2022- No [id number] .2mL/kg 13.28 mL Univers dimeglumine 04-26 (0.2 mL/kg i ty of (MULTIHANCE 15:30: 15:30 ?66.4 kg), [facility]15 mL) 00 :00 Intravenou Medica l injection s, ONCE, 1 Bran ch 13.28 mL dose, On Sat04/26/22 at 0930, Routine escitalopra 0 Yes 5mg 5 mg, Unive rs m oxalate 12 Oral, ity of (LEXAPRO) 15:00: DAILY, [place] [...] mg 00 First dose Me dical on [facility] Branch 04/26/22 at 0900, Until Discontinu ed, Routine enoxaparin 2023-0 Yes 40mg 40 mg, Unive rs (LOVENOX) 1-12 Subcutaneo ity of injection 15:00: [place], [place] 40 mg 00 First dose Medical on [facility] Branch 04/26/22 at 0900, Until Discontinu ed, [...] Medical Piggyback, Branch ONCE, 1 dose, On [facility] 04/26/22 at 0000, STAT NaCl 0.9% 2023-0 2023- No 1000mL at 999 Uni vers (NS) bolus -12 01-12 mL/hr, ity of infusion 06:00: 05:34 1,000 mL, [place] as 1,000 mL 00 :11 IV Medical [facility] ONCE, 1 dose, On [place] 04/26/22 at 0000, STAT traZODone 2023-0 Yes 100mg 100 mg, Univ ers (DESYREL) 1-12 Oral, QHS, ity of tablet 100 05:30: First dose [place] mg 00 on [facility] 04/25/22 at Branch 2330, Until Discontinu ed, Routine QUEtiapine 2023-0 Yes 50mg 50 mg, Unive rs (SEROQUEL) 1-12 Oral, QHS, ity of tablet 50 05:30: First dose [place] 00 on [facility] 04/25/22 at Branch 2330, Until Discontinu ed, Routine gabapentin 2023-0 Yes 300mg 300 mg, Uni vers (NEURONTIN) 1-12 Oral, QHS, it y of capsule 300 05:30: First dose [place] mg 00 on [facility] 04/25/22 at Branch 2330, Until Discontinu ed, Routine traZODone 2023-0 Yes 100mg 100 mg, Univ ers (DESYREL) 1-12 Oral, QHS, ity of tablet 100 05:30: First dose [place] mg 00 on [facility] 04/25/22 at Branch 2330, Until Discontinu ed, Routine QUEtiapine 2023-0 Yes 50mg 50 mg, Unive rs (SEROQUEL) 1-12 Oral, QHS, ity of tablet 50 05:30: First dose [place] 00 on [facility] 04/25/22 at Branch 2330, Until Discontinu ed, Routine gabapentin 2023-0 Yes 300mg 300 mg, Uni vers (NEURONTIN) 1-12 Oral, QHS, it y of capsule 300 05:30: First dose [place] mg 00 on [facility] 04/25/22 at Branch 2330, Until Discontinu ed, Routine ondansetron 2023-0 Yes 4mg 4 mg, Slow Univers (ZOFRAN 1-12 IV Push, ity of (PF)) 05:16: Q6HPRN, [place] injection 4 42 Starting Medi brandy mg on [facility] 04/25/22 at 2316, Until Discontinu ed, Routine, [...] Branch 2315, Until Discontinu ed, Routine sennosides 2023-0 Yes 8.6mg 8.6 mg, Uni vers (SENOKOT) [...] PF 2022- No 50ug 50 mcg, Un oyu (SUBLIMAZE 04-26 Slow IV ity o f (PF)) 03:15: 03:19 Push, [place] injection 00 :00 ONCE, 1 Medical 50 mcg dose, On Branch 04/25/22 at 2115, Routine iopamidol 2022-0 202- No [id number] 80mL 80 mL, U nivers (ISOVUE 04-26 Intravenou ity o f 370-500 mL) 01:30: 01:30 s, ONCE, 1 [place] injection 00 :00 dose, On Medica l 80 mL Wed Branch 04/25/22 at 1930, Routine iopamidol 2022-0 2022- No [id number] 80mL 80 mL, U nivers (ISOVUE 04-26 Intravenou ity o f 370-500 mL) 01:30: 01:30 s, ONCE, 1 [place] injection 00 :00 dose, On Medica l 80 mL Wed Branch 04/25/22 at 1930, Routine ondansetron 0 2022- No 4mg 4 mg, Slow Univers [...] 04/25/22 at 1815, Routine ondansetron 2022-0 Yes [id number] 4mg Take 1 Univers 4 mg 1-12 tablet by ity of disintegrat 00:00: mouth [place] ing tablet 00 every 8 Medica l (eight) Branch hours as needed for Nausea and Vomiting (N/V). pantoprazol 2022-0 Yes [id number] 20mg Take 1 Univers e 20 mg EC 1-12 tablet by ity of tablet 00:00: mouth in [place] 00 the Medical morning. Branch HYDROcodone 3-0 Yes [id number] 1{tbl} Take 1 Un you -acetaminop 1-12 tablet by ity of hen 10-325 00:00: mouth [place] mg tablet 00 every 6 Medical (six) Branch hours as needed for Pain (scale 7-10). Indication s: acute pain ondansetron 3-0 Yes [id number] 4mg Take 1 Univers 4 mg 1-12 tablet by ity of disintegrat 00:00: mouth [place] ing tablet 00 every 8 Medica l (eight) Branch hours as needed for Nausea and Vomiting (N/V). pantoprazol 3-0 Yes [id number] 20mg Take 1 Univers e 20 mg [...] Indication s: acute pain ondansetron 2022-0 Yes [id number] 4mg Take 1 Univers 4 mg 1-12 tablet by ity of disintegrat 00:00: mouth [place] ing tablet 00 every 8 Medica l (eight) Branch hours as needed for Nausea and Vomiting (N/V). pantoprazol 3-0 Yes [id number] 20mg Take 1 Univers e 20 mg EC 1-12 tablet by ity of tablet 00:00: mouth in [place] 00 the Medical morning. Branch HYDROcodone 3-0 Yes [id number] 1{tbl} Take 1 Un you -acetaminop 1-12 tablet by ity of hen 10-325 00:00: mouth [place] mg tablet 00 every 6 Medical (six) Branch hours as needed for Pain (scale 7-10). Indication s: acute pain ondansetron 2023-0 2023- No [id number] 4mg Take 1 Univers 4 mg 1-12 04-17 tablet by ity of disintegrat 00:00: 00:00 mouth [place] tablet 00 :00 every 8 Medica l (eight) Branch hours as needed for Nausea and Vomiting (N/V). pantoprazol 2023-0 2022- No [id number] 20mg Take 1 Univers e 20 mg [...] Indication s: acute pain docusate 2022-2022- No [id number] 100mg Take 1 Univers 100 mg 04-26 capsule by ity of capsule 00:00: 05:59 mouth in [place] 00 :00 the [facility] Branch for 30 days. docusate 2022-2022- No [id number] 100mg Take 1 Univers 100 mg 04-26 capsule by ity of capsule 00:00: 05:59 mouth in [place] 00 :00 the [facility] for 30 days. docusate No [id number] 100mg Take 1 Univers 100 mg 04-26 capsule by ity of capsule 00:00: 05:59 mouth in [place] 00 :00 the [facility] for 30 days. NaCl 0.9% 2022- No 1000mL at 999 Uni vers (NS) bolus 04-25-12 mL/hr, ity of infusion 23:30: 01:21 1,000 [...] of tablet 23:18: 00:00 [place] 50 :00 [facility] Branch carvediloL 2022- No 1 tablet Un [...] [place] 02/06/22 at 2015, Routine OLANZapine 2021- Yes 5mg Take 1 Unive rs 5 mg tablet 0-26 tablet by ity of 00:00: mouth in [place] 00 the Medical morning. Branch polyethylen 2021-04 Yes 17g Take 1 Univ ers e glycol 0-26 Packet by ity of 3350 17 00:00: mouth in [place] [facility] 00 the Medical morning. Branch OLANZapine 2021-04 [...] by ity of tablet 19:56: mouth at [place] [address] bedtime. Medical Branch losartan 2021-04 Yes 100mg Take 100 Univ ers 100 mg 0-25 mg by ity of tablet 19:56: mouth [place] [address] daily. Medical Branch gabapentin 2021-04 Yes 300mg Take 300 Un you 300 mg 0-25 mg by ity of capsule 19:56: mouth at [place] [address] bedtime. Medical Branch QUEtiapine 2021-04 Yes 500mg Take 500 Un you 400 mg 0-25 mg by ity of tablet 19:56: mouth in [place] [address] the Medical morning. Branch Patient reports that she has real bad anxiety, her doctor just upped her dosage to 500 mg omeprazole 2021-04 Yes 20mg Take 20 mg U nivers 20 mg 0-25 by mouth ity of tablet 19:56: daily. [address] Branch carvediloL 2021-04 Yes 1 tablet Uni vers 12.5 mg 0-25 with food ity of tablet 19:56: [address] Branch tiZANidine 2021-04 Yes 1 tablet Uni vers 2 mg tablet 0-25 as needed ity of 19:56: [place] [address] Medical Branch traZODone 2021-04 Yes 100mg Take 100 Uni vers 100 mg 0-25 mg by ity of tablet 19:56: mouth at [place] [address] bedtime. Medical Branch losartan 2021-04 Yes 100mg Take 100 Univ ers 100 mg 0-25 mg by ity of tablet 19:56: mouth [place] [address] daily. Medical Branch gabapentin 2021-04 Yes 300mg Take 300 Un you 300 mg 0-25 mg by ity of capsule 19:56: mouth at [place] [address] bedtime. Medical Branch QUEtiapine 2021-04 Yes 500mg Take 500 Un you 400 mg 0-25 mg by ity of tablet 19:56: mouth in [place] [address] the Medical morning. Branch Patient reports that she has real bad anxiety, her doctor just upped her dosage to 500 mg omeprazole 2021-04 Yes 20mg Take 20 mg U nivers 20 mg 0-25 by mouth ity of tablet 19:56: daily. [address] carvediloL 2021-04 Yes 1 tablet Uni vers 12.5 mg 0-25 with food ity of tablet 19:56: [address] tiZANidine 2021-04 Yes 1 tablet Uni vers 2 mg tablet 0-25 as needed ity of 19:56: [address] traZODone 2021-04 Yes 100mg Take 100 Uni vers 100 mg 0-25 mg by ity of tablet 19:56: mouth at [place] [address] bedtime. Medical Branch losartan 2021-04 Yes 100mg Take 100 Univ ers 100 mg 0-25 mg by ity of tablet 19:56: mouth [place] [address] daily. Medical Branch gabapentin 2021-04 Yes 300mg Take 300 Un you 300 mg 0-25 mg by ity of capsule 19:56: mouth at [place] [address] bedtime. [facility] Branch QUEtiapine 2021-04 Yes 500mg Take 500 Un you 400 mg 0-25 mg by ity of tablet 19:56: mouth in [place] [address] the Medical morning. [place] Patient reports that she has real bad anxiety, her doctor just upped her dosage to 500 mg omeprazole 2021-04 Yes 20mg Take 20 mg U nivers 20 mg 0-25 by mouth ity of tablet 19:56: daily. [address] carvediloL 2021-04 Yes 1 tablet Uni vers 12.5 mg 0-25 with food ity of tablet 19:56: [address] tiZANidine 2021-04 Yes 1 tablet Uni vers 2 mg tablet 0-25 as needed ity of 19:56: [address] ARIPiprazol 2021-04- No 10mg Take 10 mg Univers e 10 mg 0-25 10-25 by mouth ity of tablet 15:53: 00:00 daily. [place] 25 :00 [facility] busPIRone 2021-04- No 15mg Take 15 mg U nivers 15 mg 0-25 10-25 by mouth ity of tablet 15:53: 00:00 [place]. [place] :00 [facility] OLANZapine 2021-04 Yes 5mg 5 mg, Univer s (ZyPREXA) 0-25 Oral, ity of tablet 5 mg 14:00: DAILY, [place] 00 First dose Medical on [facility] 02/06/22 at 0900, Until Discontinu ed, Routine QUEtiapine 2021-04 Yes 500mg 500 mg, Uni vers (SEROQUEL) 0-25 Oral, ity of tablet 500 14:00: DAILY, [place] mg 00 First dose Medical on [facility] 02/06/22 at 0900, Until Discontinu ed, Routine losartan 2021-04 Yes 100mg 100 mg, Unive rs (COZAAR) 0-25 Oral, ity of tablet 100 14:00: DAILY, [place] mg 00 First dose Medical on [facility] 02/06/22 at 0900, Until Discontinu ed, Routine acetaminoph 2021-04 Yes 650mg 650 mg, Un you en 0-25 Oral, ity of (TYLENOL) 06:15: Q6HPRN, [place] tablet 650 34 Starting Medic al mg on [facility] 02/06/22 at 0115, Until Discontinu ed, Routine, Pain (scale 1-3) traZODone 2021-04 Yes 100mg 100 mg, Univ ers (DESYREL) 0-25 Oral, QHS, ity of tablet 100 02:00: First dose [place] mg 00 on [facility] 02/05/22 Branch at 2100, Until [...] tablet in the evening. diatrizoate 2021-04 No [id number] 60mL 60 mL, Univers calista-diatriz 0-24 10-24 Oral, ity of oat sod 14:30: 19:22 ONCE, 1 [place] (GASTROGRAF 00 :00 dose, On Medi brandy IN) 66-10 % Mon Branch oral 02/05/22 solution 60 at 0930, mL Routine OLANZapine 2021-04- No 5mg 5 mg, Unive rs (ZYPREXA) [...] 17 g 00 First dose Medical on [place] Branch 02/04/22 at 1945, Until Discontinu ed, Routine HYDROcodone 2021-04 Yes 1{tbl} 1 tablet, Univers -acetaminop 0-24 Oral, ity of hen (NORCO 00:37: Q6HPRN, [place] 5) 5-325 mg 43 Starting Medi brandy tablet 1 on [place] Branch tablet 02/04/22 at 1937, Until Discontinu [...] Yes 2mg 2 mg, Slow Univers mg/mL) 0-22 IV Push, ity of injection 2 22:35: [...] at 1330, piggyback [place] iopamidol 2021-04- No [id number] 80mL 80 mL, Univers (ISOVUE 02-03 Intravenou [...] 1000mL at 999 Uni vers (NS) bolus 002-03 mL/hr, ity of infusion 16:45: 16:49 1,000 mL, [place] 1,000 mL 00 :00 IV Medical Piggyback, Branch ONCE, 1 dose, On 02/03/22 at 1145, STAT ondansetron 2021-04- No 4mg 4 mg, Slow Univers (ZOFRAN 02-03 IV Push, ity of (PF)) 16:15: 16:08 ONCE, 1 [place] injection 4 00 :00 dose, On Medi brandy mg Sat Branch 02/03/22 at 1115, LUOIS morpHINE (4 2021-04- No 4mg 4 mg, Slow Univers mg/mL) 0-22 10-22 IV Push, ity of injection 4 16:15: [...] No 30mg 30 mg, Unive rs (TORADOL) 0-26 01- Slow IV ity of injection 23:00: 21:56 Push, [place] 30 mg 00 :00 ONCE, 1 Medical dose, On Branch 01/26/22 at 1800, Routine ondansetron 2021-04 No 4mg 4 mg, Slow Univers (ZOFRAN 0-14 -14 IV Push, ity of (PF)) 22:00: 21:56 ONCE, 1 [place] injection 4 00 :00 dose, On Medi brandy mg Fri Branch 01/26/22 at 1700, [place] morpHINE (2021-04 No 4mg 4 mg, Slow Univers mg/mL) 0-14 10-14 IV Push, ity of injection 4 22:00: 21:56 ONCE, 1 [place] mg 00 :00 dose, On Medical Fri Branch 01/26/22 at 1700, STAT iopamidol 2021-04- No [id number] 75mL 75 mL, U nivers (ISOVUE 0-14 10-14 Intravenou ity o f 370-500 mL) 21:30: 21:45 s, ONCE, 1 [place] injection 00 :00 dose, On Medica l 75 mL Fri Branch 01/26/22 at 1645, Routine carvediloL 2021-04 Yes 1 tablet Uni vers 12.5 mg 0-14 with food ity of tablet 19:45: [place] [address] Medical Branch gabapentin 2021-04 Yes 1{capsu Take 1 Un you 300 mg 0-14 le} capsule by ity of capsule 19:45: mouth in [place] [address] the Medical morning Branch and 1 capsule at noon and 1 capsule in the evening. tiZANidine 2021-04 Yes 1 tablet Uni vers 2 mg tablet 0-14 as needed ity of 19:45: [place] [address] Medical Branch Tramadol 2021-04- No [id number] 100mg Take 1 Unive rs 100 mg 0-14 -22 tablet by ity of tablet 00:00: 04:59 mouth [place] 00 :00 every 24 Medical (twenty- Branch ur) hours as needed for Pain (scale 4-6) or Pain (scale 7-10) for up to 7 days. Indication s: acute pain ondansetron No 4mg 4 mg, Slow Univers (ZOFRAN 11-02 IV Push, ity of (PF)) 12:30: 12:28 ONCE, 1 [place] injection 4 00 :00 dose, On Medi brandy mg [facility] Branch 11/02/21 at 0730, L[place]IS morpHINE (4 No 4mg 4 mg, Slow Univers mg/mL) 11-02 IV Push, ity of injection 4 12:30: 12:30 ONCE, 1 [place] mg 00 :00 dose, On Medical [facility] Branch 11/02/21 at 0730, STAT iopamidol 2021- No [id number] 50mL 50 mL, U nivers (ISOVUE 11-02 Intravenou ity o f 370-500 mL) 12:16: 12:16 s, ONCE, 1 [place] injection 00 :00 dose, On Medica l 50 mL [facility] Branch 11/02/21 at 0730, Routine ondansetron No 4mg 4 mg, Slow Univers (ZOFRAN 11-02 IV Push, ity of (PF)) 11:00: 10:41 ONCE, 1 [place] injection 4 00 :00 dose, On Medi brandy mg [place] Branch 11/02/21 at 0600, [place]IS FENTanyl PF 2022-0 2022- No 75ug 75 mcg, Un you (SUBLIMAZE 7-21 07-21 Slow IV ity o f (PF)) 11:00: 10:42 Push, [place] injection 00 :00 ONCE, 1 Medical 75 mcg dose, On Branch [place] 11/02/21 at 0600, STAT ondansetron 2021-0 Yes [id number] 4mg Take 1 Univers 4 mg 7-21 tablet by ity of disintegrat 00:00: mouth [place] ing tablet 00 every 8 Medica l (eight) Branch hours as needed for Nausea and Vomiting (N/V). ondansetron 2021- Yes [id number] 4mg Take 1 Univers 4 mg 7-21 tablet by ity of disintegrat 00:00: mouth [place] ing tablet 00 every 8 Medica l (eight) Branch hours as needed for Nausea and Vomiting (N/V). ondansetron 2021- Yes [id number] 4mg Take 1 Univers 4 mg 7-21 tablet by ity of disintegrat 00:00: mouth [place] ing tablet 00 every 8 Medica l (eight) Branch hours as needed for Nausea and Vomiting (N/V). ondansetron 2021- Yes [id number] 4mg Take 1 Univers 4 mg 7-21 tablet by ity of disintegrat 00:00: mouth [place] ing tablet 00 every 8 Medica l (eight) Branch hours as needed for Nausea and Vomiting (N/V). ondansetron 2021- Yes [id number] 4mg Take 1 Univers 4 mg 7-21 tablet by ity of disintegrat 00:00: mouth [place] ing tablet 00 every 8 Medica l (eight) Branch hours as needed for Nausea and Vomiting (N/V). ondansetron 2021-0 Yes [id number] 4mg Take 1 Univers 4 mg 7-21 tablet by ity of disintegrat 00:00: mouth [place] ing tablet 00 every 8 Medica l (eight) Branch hours as needed for Nausea and Vomiting (N/V). ondansetron 2-0 3- No [id number] 4mg Take 1 Univers 4 mg 7-21 01-12 tablet by ity of disintegrat 00:00: 00:00 mouth [place] ing tablet 00 :00 every 8 Medica l (eight) Branch hours as needed for Nausea and Vomiting (N/V). ondansetron 3- No [id number] 4mg Take 1 Univers 4 mg 7-21 -12 tablet by ity of disintegrat 00:00: 00:00 mouth [place] ing tablet 00 :00 every 8 Medica l (eight) Branch hours as needed for Nausea and Vomiting (N/V). ARIPiprazol 2021-0 Yes 10mg Take 10 mg Univers e 10 mg 6-18 by mouth ity of tablet 22:55: daily. [address] busPIRone 2021-0 Yes 15mg Take 15 mg Un you 15 mg 6-18 by mouth ity of tablet 22:55: as needed. [address] omeprazole 0 Yes 20mg Take 20 mg U nivers 20 mg 6-18 by mouth ity of tablet 22:55: daily. [address] ARIPiprazol 0 Yes 10mg Take 10 mg Univers e 10 mg 6-18 by mouth ity of tablet 22:55: daily. [address] busPIRone 2021-0 Yes 15mg Take 15 mg Un you 15 mg 6-18 by mouth ity of tablet 22:55: as needed. [address] omeprazole 2021-0 Yes 20mg Take 20 mg U nivers 20 mg 6-18 by mouth ity of tablet 22:55: daily. [address] ARIPiprazol 0 Yes 10mg Take 10 mg Univers e 10 mg 6-18 by mouth ity of tablet 22:55: daily. [address] busPIRone 2021-0 Yes 15mg Take 15 mg Un you 15 mg 6-18 by mouth ity of tablet 22:55: as needed. [address] omeprazole 0 Yes 20mg Take 20 mg U nivers 20 mg 6-18 by mouth ity of tablet 22:55: daily. [address] ARIPiprazol 2021-0 Yes 10mg Take 10 mg Univers e 10 mg 6-18 by mouth ity of tablet 22:55: daily. [address] busPIRone 2021-0 Yes 15mg Take 15 mg Un you 15 mg 6-18 by mouth ity of tablet 22:55: as needed. [address] omeprazole 2021-0 Yes 20mg Take 20 mg U nivers 20 mg 6-18 by mouth ity of tablet 22:55: daily. [address] ARIPiprazol Yes 10mg Take 10 mg Univers e 10 mg 6-18 by mouth ity of tablet 22:55: daily. [address] busPIRone Yes 15mg Take 15 mg Un you 15 mg 6-18 by mouth ity of tablet 22:55: as needed. [address] omeprazole Yes 20mg Take 20 mg U nivers 20 mg 6-18 by mouth ity of tablet 22:55: daily. [address] HYDROmorphO Yes .2mg 0.2 mg, Uni [...] Fri [place] irrigation 00 :43 09/29/21 at [facility] ical solution 0821, Branch Until Sat09/29/21 at [...] [place] (SENSORCAIN 00 :43 09/29/21 at Sc dical E MPF) 0.5 0806, Branch % [...] by ity of tablet 11:00: mouth at [place] [address] bedtime. Medical Branch losartan Yes 100mg Take 100 Univ ers 100 mg 6-17 mg by ity of tablet 11:00: mouth [place] [address] daily. Medical Branch gabapentin Yes 300mg Take [...] by mouth ity of tablet 11:00: daily. [place] [address] Medical Branch busPIRone 2021-0 Yes 15mg Take 15 mg Un you 15 mg 6-17 by mouth ity of tablet 11:00: as needed. [place] [address] Medical Branch omeprazole 2021-0 Yes 20mg Take 20 mg U nivers 20 mg 6-17 by mouth ity of tablet 11:00: daily. [place] [address] Medical Branch traZODone 2021-0 Yes 100mg Take 100 Uni vers 100 mg 6-17 mg by ity of tablet 11:00: mouth at [place] [address] bedtime. Medical Branch losartan 2021-0 Yes 100mg Take 100 Univ ers 100 mg 6-17 mg by ity of tablet 11:00: mouth [place] 16 daily. Medical Branch gabapentin 2021-0 Yes 300mg Take 300 Un you 300 mg 6-17 mg by ity of capsule 11:00: mouth 2 [place] [address] (two) Medical times Branch daily. QUEtiapine 2021-0 Yes 400mg Take 400 Un you (SEROQUEL) 6-17 mg by ity of 400 mg 11:00: mouth [place] tablet 16 daily. Medical Patient Branch doesn't like to take it ARIPiprazol 2021-0 Yes 10mg Take 10 mg Univers e 10 mg 6-17 by mouth ity of tablet 11:00: daily. [place] [address] Medical Branch busPIRone 2021-0 Yes 15mg Take 15 mg Un you 15 mg 6-17 by mouth ity of tablet 11:00: as needed. [place] [address] Medical Branch omeprazole 2021-0 Yes 20mg Take 20 mg U nivers 20 mg 6-17 by mouth ity of tablet 11:00: daily. [place] [address] Medical Branch traZODone 2021-0 Yes 100mg Take 100 Uni vers 100 mg 6-17 mg by ity of tablet 11:00: mouth at [place] [address] bedtime. Medical Branch losartan 2021-0 Yes 100mg Take 100 Univ ers 100 mg 6-17 mg by ity of tablet 11:00: mouth [place] 16 daily. Medical Branch gabapentin 2021-0 Yes 300mg Take 300 Un you 300 mg 6-17 mg by ity of capsule 11:00: mouth 2 [place] [address] (two) Medical times Branch daily. QUEtiapine 2022-0 Yes 400mg Take 400 Un you (SEROQUEL) 6-17 mg by ity of 400 mg 11:00: mouth [place] tablet 16 daily. Medical Patient Branch doesn't like to take it ARIPiprazol 2021-0 Yes 10mg Take 10 mg Univers e 10 mg 6-17 by mouth ity of tablet 11:00: daily. [place] [address] Medical Branch busPIRone 2021-0 Yes 15mg Take 15 mg Un you 15 mg 6-17 by mouth ity of tablet 11:00: as needed. [place] [address] Medical Branch omeprazole 2021-0 Yes 20mg Take 20 mg U nivers 20 mg 6-17 by mouth ity of tablet 11:00: daily. [place] [address] Medical Branch traZODone 2-0 Yes 100mg Take 100 Uni vers 100 mg 6-17 mg by ity of tablet 11:00: mouth at [place] [address] bedtime. Medical Branch losartan 2-0 Yes 100mg Take 100 Univ ers 100 mg 6-17 mg by ity of tablet 11:00: mouth [place] 16 daily. Medical Branch gabapentin 2021-0 Yes 300mg Take 300 Un you 300 mg 6-17 mg by ity of capsule 11:00: mouth 2 [place] [address] (two) Medical times Branch daily. QUEtiapine 2-0 Yes 400mg Take 400 Un you (SEROQUEL) 6-17 mg by ity of 400 mg 11:00: mouth [place] tablet 16 daily. Medical Patient Branch doesn't like to take it traZODone 2-0 Yes 100mg Take 100 Uni vers 100 mg 6-17 mg by ity of tablet 11:00: mouth at [place] [address] bedtime. Medical Branch losartan 2022-0 Yes 100mg Take 100 Univ ers 100 mg 6-17 mg by ity of tablet 11:00: mouth [place] 16 daily. Medical Branch gabapentin 2-0 Yes 300mg Take 300 Un you 300 mg 6-17 mg by ity of capsule 11:00: mouth 2 [place] [address] (two) Medical times Branch daily. QUEtiapine 2022-0 [...] at [place] 16 bedtime. Medical Branch losartan 2021-0 Yes [...] to take it aspirin 325 2021- No [id number] 325mg Take 1 Univers mg tablet 09-29 4106 tablet by ity of 00:00: 04:59 mouth 2 [place] 00 :00 (two) Medical times Branch daily with meals for 28 days. aspirin 325 2021- No [id number] 325mg Take 1 Univers mg tablet 09-29 4106 tablet by ity of 00:00: 04:59 mouth 2 [place] 00 :00 (two) Medical times Branch daily with meals for 28 days. aspirin 325 2021- No [id number] 325mg Take 1 Univers mg tablet 09-29 4106 tablet by ity of 00:00: 04:59 mouth 2 [place] 00 :00 (two) Medical times Branch daily with meals for 28 days. aspirin 325 2021- No [id number] 325mg Take 1 Univers mg tablet 09-29 4106 tablet by ity of 00:00: 04:59 mouth 2 [place] 00 :00 (two) Medical times Branch daily with meals for 28 days. ARIPiprazol Yes 10mg Take 10 mg Univers e 10 mg 6-09 by mouth ity of tablet 15:58: daily. [address] busPIRone Yes 15mg Take 15 mg Un you 15 mg 6-09 by mouth ity of tablet 15:58: as needed. [address] omeprazole 0 Yes 20mg Take 20 mg U nivers 20 mg 6-09 by mouth ity of tablet 15:58: daily. [address] ARIPiprazol 0 Yes 10mg Take 10 mg Univers e 10 mg 6-09 by mouth ity of tablet 15:58: daily. [address] busPIRone 0 Yes 15mg Take 15 mg Un you 15 mg 6-09 by mouth ity of tablet 15:58: as needed. [address] omeprazole 0 Yes 20mg Take 20 mg U nivers 20 mg 6-09 by mouth ity of tablet 15:58: daily. [place] [address] Medical Branch ARIPiprazol 2021-0 Yes 10mg Take 10 mg Univers e 10 mg 6-09 by mouth ity of tablet 15:58: daily. [place] [address] Medical Branch busPIRone 2021-0 Yes 15mg Take 15 mg Un you 15 mg 6-09 by mouth ity of tablet 15:58: as needed. [place] [address] Medical Branch omeprazole 2021-0 Yes 20mg Take 20 mg U nivers 20 mg 6-09 by mouth ity of tablet 15:58: daily. [place] [address] Medical Branch traZODone 2021-0 Yes 100mg Take [...] (twelve) Medical hours as Branch needed. sucralfate 2022-0 Yes 1g 1 g, Oral, U nivers (CARAFATE) 5-27 AC+HS, ity of tablet 1 g 02:00: First dose [place] 00 on [facility] 09/07/21 at Branch 2100, Until Discontinu ed, Routine lactated 0 202- No 500mL at 999 Unive rs ringers IV 5-27 05-27 mL/hr, 500 it y of infusion 01:30: 01:17 mL, [place] 500 mL 00 :00 Intravenou Medical s, ONCE, 1 Branch dose, On [place] 09/07/21 at 2030, Routine lipase-prot 0 Yes [id number] 1{capsu Take 1 Univers ease-amylas 5-27 le} capsule by it y of e 00:00: mouth 3 [place] 12,000-38,0 00 (three) Medic al 00 -60,000 times Branch unit daily with capsule meals. psyllium Yes [id number] 1{packe Take 1 Univers husk 3.4 5-27 t} Packet by ity of gram oral 00:00: mouth 2 [place] powder 00 (two) Medical packet times Branch daily. sucralfate Yes [id number] 1g Take 1 U nivers 1 gram 5-27 tablet by ity of tablet 00:00: mouth [place] 00 before Medical meals and Branch at bedtime. ursodioL Yes [id number] 500mg Take 1 Un you 500 mg 5-27 tablet by ity of tablet 00:00: mouth 2 [place] 00 (two) Medical times Branch daily. dicyclomine Yes [id number] 10mg Take 1 Univers 10 mg 5-27 capsule by ity of capsule 00:00: mouth 3 [place] 00 (three) Medical times Branch daily. proMETHazin Yes [id number] 12.5mg Take 0.5 Univers e 25 mg [...] 7-10). Indication s: chronic pain pantoprazol Yes [id number] 40mg Take 1 Univers e 40 mg EC 5-27 tablet by ity of tablet 00:00: mouth [place] 00 daily. Medical Branch lipase-prot Yes [id number] 1{capsu Take 1 Univers ease-amylas 5-27 le} capsule by it y of e 00:00: mouth 3 [place] 12,000-38,0 00 (three) Medic al 00 -60,000 times Branch unit daily with capsule meals. psyllium Yes [id number] 1{packe Take 1 Univers husk 3.4 5-27 t} Packet by ity of gram oral 00:00: mouth 2 [place] powder 00 (two) Medical packet times Branch daily. sucralfate Yes [id number] 1g Take 1 U nivers 1 gram 5-27 tablet by ity of tablet 00:00: mouth [place] 00 before Medical meals and Branch at bedtime. ursodioL Yes [id number] 500mg Take 1 Un you 500 mg 5-27 tablet by ity of tablet 00:00: mouth 2 [place] 00 (two) Medical times Branch daily. dicyclomine Yes [id number] 10mg Take 1 Univers 10 mg 5-27 capsule by ity of capsule 00:00: mouth 3 [place] 00 (three) Medical times Branch daily. proMETHazin Yes [id number] 12.5mg Take 0.5 Univers e 25 mg [...] 7-10). Indication s: chronic pain pantoprazol Yes [id number] 40mg Take 1 [facility] e 40 mg EC 5-27 tablet by ity of tablet 00:00: mouth [place] 00 daily. Medical Branch lipase-prot Yes [id number] 1{capsu Take 1 [facility] ease-amylas 5-27 le} capsule by it y of e 00:00: mouth 3 [place] 12,000-38,0 00 (three) Medic al 00 -60,000 times Branch unit daily with capsule meals. psyllium Yes [id number] 1{packe Take 1 [facility] husk 3.4 5-27 t} Packet by ity of gram oral 00:00: mouth 2 [place] powder 00 (two) Medical packet times Branch daily. ursodioL 0 Yes [id number] 500mg Take 1 Un you 500 mg 5-27 tablet by ity of tablet 00:00: mouth 2 [place] 00 (two) Medical times Branch daily. dicyclomine 0 Yes [id number] 10mg Take 1 [facility] 10 mg 5-27 capsule by ity of capsule 00:00: mouth 3 [place] 00 (three) Medical times Branch daily. proMETHazin Yes [id number] 12.5mg Take 0.5 Univers e 25 mg [...] Indication s: chronic pain lipase-prot 2021-0 Yes [id number] 1{capsu Take 1 [facility] ease-amylas 5-27 le} capsule by it y of e 00:00: mouth 3 [place] 12,000-38,0 00 (three) Medic al 00 -60,000 times Branch unit daily with capsule meals. psyllium 2021-0 Yes [id number] 1{packe Take 1 [facility] husk 3.4 5-27 t} Packet by ity of gram oral 00:00: mouth 2 [place] powder 00 (two) Medical packet times Branch daily. ursodioL 2021-0 Yes [id number] 500mg Take 1 Un you 500 mg 5-27 tablet by ity of tablet 00:00: mouth 2 [place] 00 (two) Medical times Branch daily. dicyclomine 2021-0 Yes [id number] 10mg Take 1 [facility] 10 mg 5-27 capsule by ity of capsule 00:00: mouth 3 [place] 00 (three) Medical times Branch daily. proMETHazin Yes [id number] 12.5mg Take 0.5 [facility] e 25 mg [...] Indication s: chronic pain lipase-prot 2021- Yes [id number] 1{capsu Take 1 [facility] ease-amylas 5-27 le} capsule by it y of e 00:00: mouth 3 [place] 12,000-38,0 00 (three) Medic al 00 -60,000 times Branch unit daily with capsule meals. psyllium Yes [id number] 1{packe Take 1 [facility] husk 3.4 5-27 t} Packet by ity of gram oral 00:00: mouth 2 [place] powder 00 (two) Medical packet times Branch daily. ursodioL Yes [id number] 500mg Take 1 Un you 500 mg 5-27 tablet by ity of tablet 00:00: mouth 2 [place] 00 (two) Medical times Branch daily. dicyclomine Yes [id number] 10mg Take 1 [facility] 10 mg 5-27 capsule by ity of capsule 00:00: mouth 3 [place] 00 (three) Medical times Branch daily. proMETHazin Yes [id number] 12.5mg Take 0.5 [facility] e 25 mg [...] Indication s: chronic pain lipase-prot 2021-0 Yes [id number] 1{capsu Take 1 [facility] ease-amylas 5-27 le} capsule by it y of e 00:00: mouth 3 [place] 12,000-38,0 00 (three) Medic al 00 -60,000 times Branch unit daily with capsule meals. psyllium 0 Yes [id number] 1{packe Take 1 [facility] husk 3.4 5-27 t} Packet by ity of gram oral 00:00: mouth 2 [place] powder 00 (two) Medical packet times Branch daily. ursodioL 0 Yes [id number] 500mg Take 1 Un you 500 mg 5-27 tablet by ity of tablet 00:00: mouth 2 [place] 00 (two) Medical times Branch daily. dicyclomine Yes [id number] 10mg Take 1 [facility] 10 mg 5-27 capsule by ity of capsule 00:00: mouth 3 [place] 00 (three) Medical times Branch daily. proMETHazin Yes [id number] 12.5mg Take 0.5 [facility] e 25 mg [...] Indication s: chronic pain lipase-prot 0 Yes [id number] 1{capsu Take 1 [facility] ease-amylas 5-27 le} capsule by it y of e 00:00: mouth 3 [place] 12,000-38,0 00 (three) Medic al 00 -60,000 times Branch unit daily with capsule meals. psyllium Yes [id number] 1{packe Take 1 [facility] husk 3.4 5-27 t} Packet by ity of gram oral 00:00: mouth 2 [place] powder 00 (two) Medical packet times Branch daily. ursodioL 2021-0 Yes [id number] 500mg Take 1 Un you 500 mg 5-27 tablet by ity of tablet 00:00: mouth 2 [place] 00 (two) Medical times Branch daily. dicyclomine 0 Yes [id number] 10mg Take 1 [facility] 10 mg 5-27 capsule by ity of capsule 00:00: mouth 3 [place] 00 (three) Medical times Branch daily. proMETHazin 2021-0 Yes [id number] 12.5mg Take 0.5 [facility] e 25 mg [...] Indication s: chronic pain lipase-prot 0 Yes [id number] 1{capsu Take 1 [facility] ease-amylas 5-27 le} capsule by it y of e 00:00: mouth 3 [place] 12,000-38,0 00 (three) Medic al 00 -60,000 times Branch unit daily with capsule meals. psyllium 0 Yes [id number] 1{packe Take 1 [facility] husk 3.4 5-27 t} Packet by ity of gram oral 00:00: mouth 2 [place] powder 00 (two) Medical packet times Branch daily. ursodioL 0 Yes [id number] 500mg Take 1 Un you 500 mg 5-27 tablet by ity of tablet 00:00: mouth 2 [place] 00 (two) Medical times Branch daily. dicyclomine 0 Yes [id number] 10mg Take 1 [facility] 10 mg 5-27 capsule by ity of capsule 00:00: mouth 3 [place] 00 (three) Medical times Branch daily. proMETHazin 0 Yes [id number] 12.5mg Take 0.5 [facility] e 25 mg [...] Indication s: chronic pain lipase-prot 2021-0 Yes [id number] 1{capsu Take 1 [facility] ease-amylas 5-27 le} capsule by it y of e 00:00: mouth 3 [place] 12,000-38,0 00 (three) Medic al 00 -60,000 times Branch unit daily with capsule meals. psyllium 2021-0 Yes [id number] 1{packe Take 1 [facility] husk 3.4 5-27 t} Packet by ity of gram oral 00:00: mouth 2 [place] powder 00 (two) Medical packet times Branch daily. ursodioL 2021-0 Yes [id number] 500mg Take 1 Un you 500 mg 5-27 tablet by ity of tablet 00:00: mouth 2 [place] 00 (two) Medical times Branch daily. dicyclomine 2021-0 Yes [id number] 10mg Take 1 [facility] 10 mg 5-27 capsule by ity of capsule 00:00: mouth 3 [place] 00 (three) Medical times Branch daily. proMETHazin 2021-0 Yes [id number] 12.5mg Take 0.5 [facility] e 25 mg [...] Indication s: chronic pain lipase-prot 2021-0 Yes [id number] 1{capsu Take 1 [facility] ease-amylas 5-27 le} capsule by it y of e 00:00: mouth 3 [place] 12,000-38,0 00 (three) Medic al 00 -60,000 times Branch unit daily with capsule meals. psyllium 2021-0 Yes [id number] 1{packe Take 1 [facility] husk 3.4 5-27 t} Packet by ity of gram oral 00:00: mouth 2 [place] powder 00 (two) Medical packet times Branch daily. ursodioL 2021-0 Yes [id number] 500mg Take 1 Un you 500 mg 5-27 tablet by ity of tablet 00:00: mouth 2 [place] 00 (two) Medical times Branch daily. dicyclomine 2021-0 Yes [id number] 10mg Take 1 [facility] 10 mg 5-27 capsule by ity of capsule 00:00: mouth 3 [place] 00 (three) Medical times Branch daily. proMETHazin 2021-0 Yes [id number] 12.5mg Take 0.5 [facility] e 25 mg [...] Indication s: chronic pain lipase-prot 2021-0 Yes [id number] 1{capsu Take 1 [facility] ease-amylas 5-27 le} capsule by it y of e 00:00: mouth 3 [place] 12,000-38,0 00 (three) Medic al 00 -60,000 times Branch unit daily with capsule meals. psyllium 0 Yes [id number] 1{packe Take 1 [facility] husk 3.4 5-27 t} Packet by ity of gram oral 00:00: mouth 2 [place] powder 00 (two) Medical packet times Branch daily. ursodioL 0 Yes [id number] 500mg Take 1 Un you 500 mg 5-27 tablet by ity of tablet 00:00: mouth 2 [place] 00 (two) Medical times Branch daily. dicyclomine 2021-0 Yes [id number] 10mg Take 1 [facility] 10 mg 5-27 capsule by ity of capsule 00:00: mouth 3 [place] 00 (three) Medical times Branch daily. proMETHazin 2021-0 Yes [id number] 12.5mg Take 0.5 [facility] e 25 mg [...] Indication s: chronic pain lipase-prot 2021-0 Yes [id number] 1{capsu Take 1 [facility] ease-amylas 5-27 le} capsule by it y of e 00:00: mouth 3 [place] 12,000-38,0 00 (three) Medic al 00 -60,000 times Branch unit daily with capsule meals. psyllium 0 Yes [id number] 1{packe Take 1 [facility] husk 3.4 5-27 t} Packet by ity of gram oral 00:00: mouth 2 [place] powder 00 (two) Medical packet times Branch daily. ursodioL Yes [id number] 500mg Take 1 Un you 500 mg 5-27 tablet by ity of tablet 00:00: mouth 2 [place] 00 (two) Medical times Branch daily. dicyclomine Yes [id number] 10mg Take 1 [facility] 10 mg 5-27 capsule by ity of capsule 00:00: mouth 3 [place] 00 (three) Medical times Branch daily. proMETHazin 0 Yes [id number] 12.5mg Take 0.5 [facility] e 25 mg [...] Indication s: chronic pain lipase-prot 2021-0 Yes [id number] 1{capsu Take 1 [facility] ease-amylas 5-27 le} capsule by it y of e 00:00: mouth 3 [place] 12,000-38,0 00 (three) Medic al 00 -60,000 times Branch unit daily with capsule meals. psyllium 2021-0 Yes [id number] 1{packe Take 1 [facility] husk 3.4 5-27 t} Packet by ity of gram oral 00:00: mouth 2 [place] powder 00 (two) Medical packet times Branch daily. ursodioL 2021-0 Yes [id number] 500mg Take 1 [facility] you 500 mg 5-27 tablet by ity of tablet 00:00: mouth 2 [place] 00 (two) Medical times Branch daily. dicyclomine 2021-0 Yes [id number] 10mg Take 1 [facility] 10 mg 5-27 capsule by ity of capsule 00:00: mouth 3 [place] 00 (three) Medical times Branch daily. proMETHazin 2021-0 Yes [id number] 12.5mg Take 0.5 [facility] e 25 mg [...] scal 7-10). Indication s: chronic pain psyllium 2021- Yes [id number] 1{packe Take 1 [facility] husk 3.4 5-27 t} Packet by ity of gram oral 00:00: mouth 2 [place] powder 00 (two) Medical packet times Branch daily. dicyclomine 2021- Yes [id number] 10mg Take 1 [facility] 10 mg 5-27 capsule by ity of capsule 00:00: mouth 3 (three) Medical times Branch daily. proMETHazin 2021-0 Yes [id number] 12.5mg Take 0.5 [facility] e 25 mg [...] Indication s: chronic pain psyllium 2021-0 Yes [id number] 1{packe Take 1 [facility] husk 3.4 5-27 t} Packet by ity of gram oral 00:00: mouth 2 [place] powder 00 (two) Medical packet times Branch daily. dicyclomine 2021-0 Yes [id number] 10mg Take 1 [facility] 10 mg 5-27 capsule by ity of capsule 00:00: mouth 3 [place] 00 (three) Medical times Branch daily. proMETHazin 2021-0 Yes [id number] 12.5mg Take 0.5 [facility] e 25 mg [...] Indication s: chronic pain psyllium 2021-0 Yes [id number] 1{packe Take 1 [facility] husk 3.4 5-27 t} Packet by ity of gram oral 00:00: mouth 2 [place] powder 00 (two) Medical packet times Branch daily. dicyclomine 0 Yes [id number] 10mg Take 1 [facility] 10 mg 5-27 capsule by ity of capsule 00:00: mouth 3 [place] 00 (three) Medical times Branch daily. proMETHazin 2021-0 Yes [id number] 12.5mg Take 0.5 [facility] e 25 mg [...] Indication s: chronic pain psyllium 2021-0 Yes [id number] 1{packe Take 1 [facility] husk 3.4 5-27 t} Packet by ity of gram oral 00:00: mouth 2 [place] powder 00 (two) Medical packet times Branch daily. proMETHazin 2021-0 Yes [id number] 12.5mg Take 0.5 [facility] e 25 mg 5-27 tablets by ity of tablet 00:00: mouth [place] 00 every 6 Medical (six) Branch hours as needed for Nausea and Vomiting (N/V). psyllium 2022-0 2023- No [id number] 1{packe Take 1 [facility] husk 3.4 5-27 01-12 t} Packet by ity o f gram oral 00:00: 00:00 mouth 2 [place] powder 00 :00 (two) Medical packet times Branch daily. proMETHazin 2022- No [id number] 12.5mg Take 0.5 [facility] e 25 mg 5-27 -12 tablets by ity o f tablet 00:00: 00:00 mouth [place] 00 :00 every 6 Medical (six) Branch hours as needed for Nausea and Vomiting (N/V). dicyclomine 2022- No [id number] 10mg Take 1 [facility] 10 mg 5-27 [...] Indication s: chronic pain dicyclomine 2022- No [id number] 10mg Take 1 [facility] 10 mg 5-27 [...] Indication s: chronic pain lipase-prot 2021- No [id number] 1{capsu Take 1 [facility] ease-amylas 5-27 10-25 le} capsule by i ty of e 00:00: 00:00 mouth 3 [place] 12,000-38,0 00 :00 (three) Medic al 00 -60,000 times Branch unit daily with capsule meals. ursodioL 2021- No [id number] 500mg Take 1 U n[facility] 500 mg 5-27 10-25 tablet by ity of tablet 00:00: 00:00 mouth 2 [place] 00 :00 (two) Medical times Branch daily. sucralfate 2021- No [id number] 1g Take 1 [facility] 1 gram 5-27 06-09 tablet by ity of tablet 00:00: 00:00 mouth [place] 00 :00 before Medical meals and Branch at bedtime. pantoprazol 2021- No [id number] 40mg Take 1 [facility] e 40 mg EC 5-27 06-09 tablet by ity of tablet 00:00: 00:00 mouth [place] 00 :00 daily. Medical Branch sucralfate 2021- No [id number] 1g Take 1 [facility] 1 gram 5-27 06-09 tablet by ity of tablet 00:00: 00:00 mouth [place] 00 :00 before Medical meals and Branch at bedtime. pantoprazol 2021- No [id number] 40mg Take 1 [facility] e 40 mg EC 5-27 06-09 tablet by ity of tablet 00:00: 00:00 mouth [place] 00 :00 daily. Medical Branch ursodioL 2021- No [id number] 500mg Take 1 U nivers 500 mg 5-27 05-27 tablet by ity of tablet 00:00: 00:00 mouth 2 [place] 00 :00 (two) Medical times Branch daily. psyllium 2021- No [id number] 1{packe Take 1 [facility] husk 3.4 5-27 05-27 t} Packet by ity o f gram oral 00:00: 00:00 mouth 2 [place] powder 00 :00 (two) Medical packet times Branch daily. lipase-prot 2021- No [id number] 1{capsu Take 1 [facility] ease-amylas 5-27 05-27 le} capsule by i ty of e 00:00: 00:00 mouth 3 [place] 12,000-38,0 00 :00 (three) Medic al 00 -60,000 times Branch unit daily with capsule meals. dicyclomine 2021- No [id number] 10mg Take 1 [facility] 10 mg 5-27 05-27 capsule by ity of capsule 00:00: 00:00 mouth 3 [place] 00 :00 (three) Medical times Branch daily. proMETHazin 2021- No [id number] 12.5mg Take 0.5 Univers e 25 mg -08 09-27 tablets by ity o f tablet 00:00: 00:00 mouth [place] 00 :00 every 6 Medical (six) Branch hours as needed for Nausea and Vomiting (N/V) for up to 10 days. HYDROcodone 2021- No [id number] 1{tbl} Take 1 U nivers -acetaminop -27 -27 tablet by it y of hen 7.5-325 00:00: 00:00 mouth 2 [place] mg per 00 :00 (two) Medical tablet times Branch daily as needed (Pain scal 7-10). Indication s: chronic pain sucralfate 2021- No [id number] 1g Take 1 [facility] 1 gram -08 09- tablet by ity of tablet 00:00: 00:00 mouth [place] 00 :00 before Medical meals and Branch at bedtime. pantoprazol 2021- No [id number] 40mg Take 1 [facility] e 40 mg EC -08 09- tablet by ity of tablet 00:00: 00:00 [...] proMETHazin Yes 12.5mg 12.5 mg, Univers e 09-06 Oral, ity of (PHENERGAN) 18:38: Q6HPRN, [place] tablet 12.5 27 Starting Medi brandy mg on Sat09/06/21 at 1338, Until Discontinu ed, Routine, Nausea and Vomiting (N/V) gadobenate 2021- No [id number] .2mL/kg 15.7 mL Univers dimeglumine 09-06 (0.2 [...] dose, On Sat09/05/21 at 1515, Routine LORazepam No 1mg 1 mg, Univer s (ATIVAN) [...] 3.4 09/03/21 at [facility] gram oral 1999, powder Until packet 1 Discontinu Packet ed, Routine HYDROcodone 2021- No 10mg 10 mg, Uni vers -acetaminop 09-04 Oral, BID, i ty of hen (HYCET) 01:00: 22:54 First dose [place] 7.5-325 00 :32 (after Medical mg/15 mL last Branch solution 10 modificati mg on) on [place] 09/03/21 at 2000, Until Discontinu ed traMADoL [...] 325 10 Starting Medic al mg on [facility] 09/03/21 at 0940, Until Discontinu ed, Routine, Pain (scale 1-3), Pain (scale 4-6) FENTanyl PF No 50ug 50 mcg, Un you (SUBLIMAZE 09-03 Slow IV ity o f (PF)) 14:39: 16:17 Push, [place] injection 39 :20 Q6HPRN, Medical 50 mcg Starting Branch on [place] 09/03/21 at 0939, Until [place] 09/03/21 at 1117, Routine, Pain (scale 7-10) polyethylen Yes 17g 17 g, Unive rs e glycol 09-02 Oral, ity of 3350 powder 14:00: DAILY, [place] 17 g 00 First dose Medical on [facility] 09/02/21 at 0900, Until Discontinu ed, Routine fenofibrate Yes 134mg 134 mg, Un you micronized 09-02 Oral, ity of (LOFIBRA) 14:00: DAILY, [place] capsule 134 00 First dose Me dical mg on [facility] 09/02/21 at 0900, Until Discontinu ed losartan Yes 100mg 100 mg, Unive rs (COZAAR) 09-02 Oral, ity of tablet 100 14:00: DAILY, [place] mg 00 First dose Medical on [facility] 09/02/21 at 0900, Until Discontinu ed, Routine heparin 0 Yes 5000U 5,000 Univers (porcine) 09-02 Units, ity of injection 13:00: Subcutaneo [place] 5,000 Units 00 us, Q12H, Med ical First dose Branch on [facility] 09/02/21 at 0800, Until Discontinu ed, Routine sennosides 0 Yes 8.6mg 8.6 mg, Uni vers (SENOKOT) 09-02 Oral, BID, ity of tablet 8.6 13:00: First dose [place] mg 00 on [facility] 09/02/21 at Branch 0800, Until Discontinu ed, Routine lipase-prot Yes 1{capsu 1 capsule, Univers ease-amylas 09-02 le} Oral, TID ity of e (CREON) 13:00: MEALS, [place] 12,000-38,0 00 First dose Me dical 00 -60,000 on [facility] Branch unit 09/02/21 at capsule 1 0800, capsule Until Discontinu ed, Routine ursodioL Yes 500mg 500 mg, Unive rs (EUGENE) 09-02 Oral, BID, ity of tablet 500 13:00: First dose [place] mg 00 on [facility] Medical 09/02/21 at Branch 0800, Until Discontinu ed, Routine gabapentin Yes 300mg 300 mg, Uni vers (NEURONTIN) 09-02 Oral, BID, it y of capsule 300 13:00: First dose [place] mg 00 on [facility] Medical 09/02/21 at Branch 0800, Until Discontinu ed, Routine HYDROcodone 2021- No 7.5mg 7.5 mg, U nivers -acetaminop 09-02 Oral, BID, i ty of hen (HYCET) 13:00: 16:17 First dose [place] 7.5-325 00 :46 on [facility] Medical mg/15 mL 09/02/21 at [facility] h solution 0800, 7.5 mg Until Discontinu ed FENTanyl PF 2021- No 25ug 25 mcg, Un you (SUBLIMAZE 09-02 Slow IV ity o f (PF)) 12:56: 12:17 Push, [place] injection 31 :41 Q6HPRN, Medical 25 mcg Starting Branch on [facility] 09/02/21 at 0756, Until 09/03/21 at 0717, Routine, Pain (scale 7-10) traMADoL 2021- No 50mg 50 mg, Univer s (ULTRAM) 09-02 Oral, ity of tablet 50 12:55: 12:17 Q8HPRN, [place] mg 47 :33 Starting Medical on [facility] Branch 09/02/21 at 0755, Until 09/03/21 at [...] Discontinu ed, Routine, Muscle Spasms morpHINE (2 No 4mg 4 mg, Slow [...] No 25mg 25 mg, IV Univers e 09-0225 Piggyback, ity of (PHENERGAN) 02:39: 18:38 at [...] dose, On Medi brandy mg Sat Branch 09/01/21 at 1830, [place] busPIRone 2021- [...] [place] injection 4 00 :00 dose, On [facility] Fri Branch 09/01/21 at 1600, [place] morpHINE (2 2021- No 4mg 4 mg, Slow Univers mg/mL) 5- 05-20 IV Push, ity of injection 4 21:00: 20:10 ONCE, 1 [place] mg 00 :00 dose, On Medical Fri Branch 09/01/21 at 1600, STAT dicyclomine 2021- No 20mg 20 mg, Uni vers (BENTYL) 5-15 05-15 Oral, ity of tablet 20 20:45: 19:43 ONCE, 1 [place] mg 00 :00 dose, On Medical [place] Branch 08/27/21 at 1545, Routine maalox:diph 2021- No 15mL 15 mL, Uni vers enhydrAMINE 5-15 05-15 Oral, ity of :lidocaine 20:00: 18:58 ONCE, 1 [place] 2 % viscous 00 :00 dose, On Medi brandy 1:1:1 [place] Branch (FIRST-MOUT 08/27/21 at [facility]) 1500, oral Routine suspension 15 mL FENTanyl PF 2021- No 50ug 50 mcg, Un you (SUBLIMAZE 5-15 05-15 Slow IV ity o f (PF)) 17:49: 17:52 Push, [place] injection 00 :00 ONCE, 1 Medical 50 mcg dose, On Branch [place] 08/27/21 at 1300, STAT morpHINE (4 2021- [...] 00 :00 dose, On Medi brandy mg [place] Branch 08/27/21 at 1215, [place] NaCl 0.9% 2021- No 1000mL at 999 Uni vers (NS) bolus 08-27 05-15 mL/hr, ity of infusion 17:15: 18:59 1,000 mL, [place] 1,000 mL 00 :00 IV Medical Infusion, Branch ONCE, 1 dose, On [place] 08/27/21 at 1215, [place] iopamidol 2021- No [id number] 100mL 100 mL, Univers (ISOVUE 08-27 05-15 Intravenou ity o f 370-500 mL) 16:45: 16:44 s, ONCE, 1 [place] injection 00 :00 dose, On Medica l 100 mL [facility] 08/27/21 at 1145, Routine traZODone 0 Yes 100mg Take 100 Uni vers 100 mg 4-16 mg by ity of tablet 14:03: mouth at [place] 58 bedtime. Medical Branch losartan 2021-0 Yes 100mg Take 100 Univ ers 100 mg 4-16 mg by ity of tablet 14:03: mouth [place] 58 daily. Medical Branch gabapentin 0 Yes 300mg [...] Until Discontinu ed, Routine proMETHazin 2021-0 Yes [id number] 25mg Take 1 Univers e 25 mg 4-16 tablet by ity of tablet 00:00: mouth [place] 00 every 4 Medical (four) Branch hours as needed for Nausea and Vomiting (N/V). proMETHazin 2021-0 Yes [id number] 25mg Take 1 Univers e 25 mg 4-16 tablet by ity of tablet 00:00: mouth [place] 00 every 4 Medical (four) Branch hours as needed for Nausea and Vomiting (N/V). proMETHazin 202-0 Yes [id number] 25mg Take 1 Univers e 25 mg 4-16 tablet by ity of tablet 00:00: mouth [place] 00 every 4 Medical (four) Branch hours as needed for Nausea and Vomiting (N/V). proMETHazin 2022-0 2022- No [id number] 25mg Take 1 Univers e 25 mg 4-16 05-27 tablet by ity of tablet 00:00: 00:00 mouth [place] 00 :00 every 4 Medical (four) Branch hours as needed for Nausea and Vomiting (N/V). docusate 2021- No [id number] 100mg Take 1 [facility] 100 mg 4-16 05-17 capsule by ity of capsule 00:00: 04:59 mouth [place] 00 :00 daily for Medical 30 days. Branch hydrALAZINE 2021- No [id number] 50mg Take 1 Univers 50 mg 4-16 05-17 tablet by ity of tablet 00:00: 04:59 mouth 2 [place] 00 :00 (two) Medical times Branch daily for 30 days. docusate 2021- No [id number] 100mg Take 1 Univers 100 mg 4-16 05-17 capsule by ity of capsule 00:00: 04:59 mouth [place] 00 :00 daily for Medical 30 days. Branch hydrALAZINE 2021- No [id number] 50mg Take 1 Univers 50 mg 4-16 05-17 tablet by ity of tablet 00:00: 04:59 mouth 2 [place] 00 :00 (two) Medical times Branch daily for 30 days. docusate 2021- No [id number] 100mg Take 1 Univers 100 mg 4-16 05-17 capsule by ity of capsule 00:00: 04:59 mouth [place] 00 :00 daily for Medical 30 days. Branch hydrALAZINE 2021- No [id number] 50mg Take 1 Univers 50 mg 4-16 [...] No 5mg 5 mg, Unive rs (NORVASC) 07-28-15 Oral, ity of tablet 5 mg 15:30: 15:02 ONCE, 1 [place] 00 :00 dose, On Medical Fri Branch 07/28/21 at 1030, Routine HYDROmorpho No .6mg 0.6 mg, Un you ne 07-28-17 Slow IV ity of (DILAUDID) 15:05: 15:04 [...] mg, Slow Un you injection 4 07-27 04-15 IV Push, ity of mg 18:29: [...] dose [place] mg 00 :11 on Sat [facility] 07/26/21 at Branch 2000, Until Discontinu ed, [...] First dose [place] mg 00 on [facility] 07/25/21 at Branch 2100, Until Discontinu ed, Routine divalproex Yes 500mg 500 mg, Uni vers (DEPAKOTE) 4-13 Oral, ity of EC tablet 01:00: Q12H, [place] 500 mg 00 First dose Medical on [facility] Branch 07/25/21 at 2000, Until Discontinu ed LORazepam 2021- No .5mg 0.5 mg, Univ ers (ATIVAN) 07-26 Slow IV ity of injection 00:45: 00:07 Push, [place] 0.5 mg 00 :00 ONCE, 1 Medical dose, On Branch [facility] 07/25/21 at 1945, Routine LORazepam Yes .5mg [...] :00 ONCE, 1 Medical dose, On Branch [facility] 07/25/21 at 1815, STAT
In dication: Hypertensi ve Emergency HYDROmorpho 2021- No 1mg 1 mg, Slow Univers ne 07-25 IV Push, ity of (DILAUDID) 17:59: 17:58 Q4HPRN, [place] injection 1 31 :31 Starting Medi brandy mg on [facility] Branch 07/25/21 at 1259, Until [place] 07/27/21 at 1258, Routine, Pain (scale 7-10)
U se approved by (Faculty): [employer] PROVIDER docusate Yes 100mg 100 mg, Unive rs (COLACE) 07-25 Oral, BID, ity o f capsule 100 16:30: First dose [place] mg 00 on [facility] Medical 07/25/21 at Branch 1130, Until Discontinu ed, Routine sennosides- 2021- No 1{tbl} 1 tablet, Univers docusate 07-25 Oral, ity of sodium 16:30: 21:16 DAILY, [place] (SENOKOT-S) 00 :00 First dose Me dical 8.6-50 mg on Sat Branch per tablet 07/25/21 at 1 tablet 1130, [...] First dose [place] mg 00 on [facility] Medical 07/24/21 at Branch 2100, Until Discontinu ed, Routine morpHINE 2021- No 4mg 4 mg, Slow Un you injection 07-25 IV Push, ity of mg 02:00: 17:59 Q3HPRN, [place] 00 :47 Starting Medical on [facility] Branch 07/24/21 at 2100, Until Sat07/25/21 at 1259, Routine, Pain (scale 7-10) proMETHazin Yes 12.5mg 12.5 mg, Univers e 07-24 IV ity of (PHENERGAN) 23:52: Piggyback, [place] 12.5 mg in 45 Q4HPRN, Medica l NaCl 0.9% Starting Branch (NS) 50 mL on [facility] IV 07/24/21 at piggyback 1852, Until Discontinu ed, Routine, Nausea and Vomiting (N/V) morpHINE 2021- No 4mg 4 mg, Slow Un you injection 07-24 IV Push, ity of mg 19:45: 23:44 Q3HPRN, [place] 00 :00 Starting Medical on [facility] Branch 07/24/21 at 1445, Until Sat07/24/21 at 1844, Routine, Pain (scale 7-10) SERTraline Yes 25mg 25 mg, Unive rs (ZOLOFT) 07-24 Oral, ity of tablet 25 14:00: DAILY, [place] mg 00 First dose Medical on [facility] 07/24/21 at 0900, Until Discontinu ed, Routine losartan Yes 100mg 100 mg, Unive rs (COZAAR) 07-24 Oral, ity of tablet 100 14:00: DAILY, [place] mg 00 First dose Medical on [facility] 07/24/21 at 0900, Until Discontinu ed, Routine fenofibrate 0 Yes 134mg 134 mg, Un you micronized 07-24 Oral, ity of (LOFIBRA) 14:00: DAILY, [place] capsule 134 00 First dose Me dical mg on [facility] 07/24/21 at 0900, Until Discontinu ed enoxaparin Yes 30mg 30 mg, Unive rs (LOVENOX) 07-24 Subcutaneo ity of injection 14:00: us, DAILY, [place] 30 mg 00 First dose Medical on [facility] 07/24/21 at 0900, Until Discontinu ed, Routine busPIRone Yes 10mg 10 mg, Univer s (BUSPAR) 07-24 Oral, BID, ity o f tablet 10 13:00: [place] 00 on [facility] 07/24/21 at Branch 0800, Until Discontinu ed, Routine gabapentin Yes 300mg 300 mg, Uni vers (NEURONTIN) 07-24 Oral, BID, it y of capsule 300 13:00: First dose [place] mg 00 on [facility] 07/24/21 at Branch 0800, Until Discontinu ed, Routine lactated 2021- No 1000mL at 150 Univ ers ringers IV 07-24 mL/hr, ity of infusion 13:00: 15:03 1,000 [...] dose, On Sat07/24/21 at 0745, Routine ondansetron 2022-0 Yes 4mg 4 mg, Slow Univers (ZOFRAN 11 IV Push, ity of (PF)) 04:26: Q6HPRN, [place] injection 4 35 Starting Medi brandy mg on [facility] 07/23/21 at 2326, Until Discontinu ed, [place], Nausea and Vomiting (N/V) FENTanyl PF 2021- No 75ug 75 mcg, Un you (SUBLIMAZE 07-24 Slow IV ity o f (PF)) 00:15: 23:11 Push, [place] injection 00 :00 ONCE, 1 Medical 75 mcg dose, On Branch [place] 07/23/21 at 1915, STAT iopamidol 2021- No [id number] 100mL 100 mL, Univers (ISOVUE 07-24 Intravenou ity o f 370-500 mL) 00:00: 00:00 s, ONCE, 1 [place] injection 00 :00 dose, On Medica l 100 mL [facility] 07/23/21 at 1900, Routine morpHINE 2021- No 4mg 4 mg, Slow Un you injection 4 07-2311 IV Push, ity of mg 23:57: 19:32 Q4HPN, [place] 08 :42 Starting Medical on [facility] 07/23/21 at 1857, Until 07/24/21 at 1432, Routine, Pain (scale 7-10) HYDROcodone 2021- No 1{tbl} 1 tablet, Univers -acetaminop 07-23-12 Oral, ity of hen (NORCO 23:57: 23:56 Q6HPRN, [place] 5) 5-325 mg 06 :06 Starting Medi brandy tablet 1 on [facility] tablet 07/23/21 at 1857, Until 07/25/21 at 1856, Routine, Pain (scale 4-6) acetaminoph Yes 650mg 650 mg, Un you en 4-10 Oral, ity of (TYLENOL) 23:57: Q6HPRN, [place] tablet 650 04 Starting Medic al mg on [facility] 07/23/21 at 1857, Until Discontinu ed, Routine, Pain (scale 1-3) haloperidol 2021-2021- No 2.5mg 2.5 mg, U nivers lactate 07-23- Intravenou ity o f (HALDOL) 23:30: 22:31 s, ONCE, 1 [place] injection 00 :00 dose, On Medica l 2.5 mg [facility] 07/23/21 at 1830, STAT ondansetron 2021- No 4mg 4 mg, Slow Univers (ZOFRAN 07-23- IV Push, ity of (PF)) 22:00: 21:22 ONCE, 1 [place] injection 4 00 :00 dose, On Medi brandy mg [facility] 07/23/21 at 1700, [place] FENTanyl PF 2021- No 75ug 75 mcg, Un you (SUBLIMAZE 07-23 Slow IV ity o f (PF)) 22:00: 21:24 Push, [place] injection 00 :00 ONCE, 1 Medical 75 mcg dose, On [facility] 07/23/21 at 1700, Routine NaCl 0.9% 2021- No 1000mL at 999 Uni vers (NS) bolus 07-23- mL/hr, ity of infusion 22:00: 23:41 1,000 mL, [place] as 1,000 mL 00 :00 IV Medical Infusion, Branch ONCE, 1 dose, On [place] 07/23/21 at 1700, [place] water for Yes PRN, Univers irrigation 07-04 Starting ity o f irrigation 16:35: on Sat [place] solution 00 07/04/21 at Medic al 1135, Branch Until Discontinu ed, Routine, Intra-op simethicone Yes PRN, Univer s (GAS RELIEF 07-04 Starting ity of (SIMETHICON 16:35: on e [place] E)) 40 00 07/04/21 at [...] Until Sat07/04/21 at 1527, Routine, Intra-op lactated 0 2021- No 1000mL at 42 [facility] rs ringers IV 07-04-22 mL/hr, ity of infusion 16:15: 16:04 1,000 mL, [place] as 1,000 mL 00 :00 IV Medical Infusion, Branch ONCE, 1 dose, On Sat07/04/21 at 1115, Routine, DSU Pre-op lactated 0 2021- No 1000mL at 42 [facility] rs ringers IV 07-04 mL/hr, ity of infusion 16:15: 16:04 1,000 mL, [place] 1,000 mL 00 :00 IV Medical Infusion, Branch ONCE, 1 dose, On Sat07/04/21 at 1115, Routine, DSU Pre-op traZODone 2021-0 Yes 100mg Take 100 Uni vers 100 mg 3-22 mg by ity of tablet 13:27: mouth at [place] [address] bedtime. Medical Branch losartan 2021-0 Yes 100mg Take 100 Univ ers 100 mg 3-22 mg by ity of tablet 13:27: mouth [place] [address] daily. Medical Branch gabapentin 2021-0 Yes 300mg Take 300 Un you 300 mg 3-22 mg by ity of capsule 13:27: mouth 2 [place] [address] (two) Medical times Branch daily. proMETHazin 2021-0 Yes 25mg Take 25 mg Univers e 25 mg 3-22 by mouth ity of tablet 13:27: every 12 [place] [address] (twelve) Medical hours as Branch needed. busPIRone 2021-0 Yes 15mg Take 15 mg Un you 15 mg 3-22 by mouth 3 ity of tablet 13:27: (three) [place] [address] times Medical daily. For Branch anxiety QUEtiapine [...] 15mL 15 mL, Uni vers enhydrAMINE 2-20 02-20 Oral, ity of :lidocaine 02:00: 01:01 ONCE, 1 [place] 2 % viscous 00 :00 dose, On Medi brandy 1:1:1 Sat Branch ([facility] 06/03/21 at [facility]) 1999, [place] oral suspension 15 mL iopamidol 2021- No [id number] 100mL 100 mL, Univers (ISOVUE 06-04 Intravenou [...] Branch 06/03/21 at 1530, Routine proMETHazin Yes [id number] 25mg Insert 1 Univers e 25 mg 2-19 Suppositor ity of suppository 00:00: [place] 00 rectum Medical every 4 Branch (four) hours as needed for Nausea and Vomiting (N/V), N/V unresponsi ve to Ondansetro n or N/V unresponsi ve to oral antiemetic s. proMETHazin Yes [id number] 25mg Insert 1 Univers e 25 mg 2-19 Suppositor ity of suppository 00:00: y [place] 00 rectum Medical every 4 Branch (four) hours as needed for Nausea and Vomiting (N/V), N/V unresponsi ve to Ondansetro n or N/V unresponsi ve to oral antiemetic s. proMETHazin Yes [id number] 25mg Insert 1 Univers e 25 mg 2-19 Suppositor ity of suppository 00:00: y into rectum Medical every 4 Branch (four) hours as needed for Nausea and Vomiting (N/V), N/V unresponsi ve to Ondansetro n or N/V unresponsi ve to oral antiemetic s. proMETHazin Yes [id number] 25mg Insert 1 Univers e 25 mg 2-19 Suppositor ity of suppository 00:00: y into rectum Medical every 4 Branch (four) hours as needed for Nausea and Vomiting (N/V), N/V unresponsi ve to Ondansetro n or N/V unresponsi ve to oral antiemetic s. proMETHazin Yes [id number] 25mg Insert 1 Univers e 25 mg 2-19 Suppositor ity of suppository 00:00: y into rectum Medical every 4 Branch (four) hours as needed for Nausea and Vomiting (N/V), N/V unresponsi ve to Ondansetro n or N/V unresponsi ve to oral antiemetic s. proMETHazin Yes [id number] 25mg Insert 1 Univers e 25 mg 2-19 Suppositor ity of suppository 00:00: y into rectum Medical every 4 Branch (four) hours as needed for Nausea and Vomiting (N/V), N/V unresponsi ve to Ondansetro n or N/V unresponsi ve to oral antiemetic s. proMETHazin Yes [id number] 25mg Insert 1 Univers e 25 mg 2-19 Suppositor ity of suppository 00:00: y into rectum Medical every 4 Branch (four) hours as needed for Nausea and Vomiting (N/V), N/V unresponsi ve to Ondansetro n or N/V unresponsi ve to oral antiemetic s. proMETHazin 2021- No [id number] 25mg Insert 1 Univers e 25 mg [...] 00 :00 dose, On Medi brandy mg [facility] 05/22/21 Branch at 0130, [place] iohexol No [id number] 100mL 100 mL, Univers (OMNIPAQUE 05-22 Intravenou it y of 350 06:15: 06:04 s, ONCE, 1 [place] BULK-100 00 :00 dose, On Medical mL) [facility] 05/22/21 Branch injection at 0015, 100 mL Routine traZODone Yes 100mg Take 100 Uni vers 100 mg 2-06 mg by ity of tablet 23:27: mouth at [place] [address] bedtime. Medical Branch traZODone Yes 100mg Take 100 Uni vers 100 mg 2-06 mg by ity of tablet 23:27: mouth at [place] 53 bedtime. Medical Branch gabapentin 0 Yes [...] 01 daily. Medical Branch montelukast 2021- No [id number] 10mg Take 1 Univers (SINGULAIR) 05-1806 tablet by it y of 10 mg 00:00: 05:59 mouth [place] tablet 00 :00 daily for Medical 30 days. Branch montelukast 2021- No [id number] 10mg Take 1 Univers (SINGULAIR) 05-18 tablet by it y of 10 mg 00:00: 05:59 mouth [place] tablet 00 :00 daily for Medical 30 days. Branch montelukast 2021- No [id number] 10mg Take 1 Univers (SINGULAIR) 05-18 tablet by it y of 10 mg 00:00: 05:59 mouth [place] tablet 00 :00 daily for Medical 30 days. Branch benzonatate 2021- No [id number] 200mg Take 2 Univers (TESSALON 05-18-14 capsules ity o f PERLES) 100 00:00: 05:59 by mouth [place] mg capsule 00 :00 every 8 Medica l (eight) Branch hours for 10 days. benzonatate 2021- No [id number] 200mg Take 2 Univers (TESSALON 05-18-14 capsules ity o f PERLES) 100 00:00: 05:59 by mouth [place] mg capsule 00 :00 every 8 Medica l (eight) Branch hours for 10 days. benzonatate 2021- No [id number] 200mg Take 2 Univers (TESSALON 2-14 capsules ity o f PERLES) 100 00:00: 05:59 by mouth [place] mg capsule 00 :00 every 8 Medica l (eight) Branch hours for 10 days. benzonatate 2021- No [id number] 200mg Take 2 Univers (TESSALON 2-06 14-06 capsules ity o f PERLES) 100 00:00: 00:00 by mouth [place] mg capsule 00 :00 every 8 Medica l (eight) Branch hours for 10 days. montelukast 2021- No [id number] 10mg Take 1 Univers (SINGULAIR) 2-06 14-06 tablet by it y of 10 mg 00:00: 00:00 mouth [place] tablet 00 :00 daily for Medical 30 days. Branch traZODone Yes 100mg Take 100 Uni vers 100 mg 1-03 mg by ity of tablet 10:57: mouth at [place] [address] bedtime. Medical Branch losartan Yes 100mg Take 100 Univ ers 100 mg 1-03 mg by ity of tablet 10:57: mouth [place] [address] daily. Medical Branch gabapentin Yes 300mg Take 300 Un you 300 mg 1-03 mg by ity of capsule 10:57: mouth 2 [place] 34 (two) Medical times Branch daily. diazePAM 2 Yes 2mg Take 2 mg Un you mg tablet 03 by mouth. ity o f 10:57: [place] 34 Medical Branch erythromyci Yes erythromyc Univers n 5 mg/gram 1-03 in 5 ity of (0.5 %) 10:57: mg/gram [place] ophthalmic 34 (0.5 %) Medica l ointment eye Branch ointment traZODone Yes 100mg Take 100 Uni vers 100 mg 1-03 mg by ity of tablet 10:57: mouth at [place] [address] bedtime. Medical Branch traZODone Yes 100mg Take 100 Uni vers 100 mg 1-03 mg by ity of tablet 10:57: mouth at [place] [address] bedtime. Medical Branch traZODone Yes 100mg Take 100 Uni vers 100 mg 1-03 mg by ity of tablet 10:57: mouth at [place] [address] bedtime. Medical Branch maalox:diph 2021- No 15mL [...] 04/15/21 at 1445, [place] iopamidol 2021- No [id number] 120mL 120 mL, Univers (ISOVUE 04-15 Intravenou ity o f 370-500 mL) 20:13: 20:14 s, ONCE, 1 [place] injection 00 :00 dose, On Medica l 120 mL 04/15/21 Branch at 1430, Routine famotidine 2021- No [id number] 40mg Take 2 Univers (PEPCID) 20 04-15 tablets by i ty of mg tablet 00:00: 05:59 mouth 2 [place] 00 :[place] (two) Medical times Branch daily for 15 days. proMETHazin 2021- No [id number] 25mg Take 1 Univers e 25 mg [...] dication: Hypertensi ve Emergency dicyclomine 2020-04 Yes [id number] 20mg 20 mg, Univers (BENTYL) 05-27 Intramuscu ity o f injection 02:00: lar, QID, [place] as 20 mg 00 First dose Medical on Sat Branch 03/25/21 at 2000, Until Discontinu ed, Routine iopamidol 2020-04- No [id number] 120mL 120 mL, Univers (ISOVUE 05-27 Intravenou ity o f 370-500 mL) 01:58: 01:58 s, ONCE, 1 [place] injection 00 :00 dose, On Medica l 120 mL Sat Branch 03/25/21 at 2015, Routine NaCl 0.9% 2020-04- No [id number] 1000mL at 999 Univers (NS) bolus 05-27 mL/hr, ity of infusion 01:30: 03:00 1,000 mL, [place] as 1,000 mL 00 :00 IV Medical Infusion, Branch ONCE, 1 dose, On 03/25/21 at 1930, [place] ondansetron 2020-04- No [id number] 4mg 4 mg, Slow Univers (ZOFRAN 05-27 IV Push, ity of (PF)) 01:30: 01:48 ONCE, 1 [place] injection 4 00 :00 dose, On Medi brandy mg Sat Branch 03/25/21 at 1930, [place] famotidine 2020-04- No [id number] 20mg 20 mg, Univers (PEPCID 05-27 Slow IV ity of (PF)) 01:30: 01:48 Push, [place] injection 00 :00 ONCE, 1 Medical 20 mg dose, On Branch 03/25/21 at 1930, [place] ketorolac 2020-04 No [id number] 30mg 30 mg, U nivers (TORADOL) 05-27 Slow IV ity of injection 01:30: 01:49 Push, [place] 30 mg 00 :00 ONCE, 1 Medical dose, On Branch 03/25/21 at 1930, [place] FENTanyl PF 2020-04- No [id number] 75ug 75 mcg, Univers (SUBLIMAZE 05-27 Slow [...] 1 Medical 12.5 mg dose, On Branch [facility] 03/20/21 at 2000, STAT metoclopram 2020-04 No 10mg 10 mg, Uni vers selena HCl 05-22 Slow IV ity of (REGLAN) 02:00: 01:13 Push, [place] injection 00 :00 ONCE, 1 Medical 10 mg dose, On Branch 03/20/21 at 1999, [place] FENTanyl PF 2020-04- No 75ug 75 mcg, Un you (SUBLIMAZE 05-21 Slow IV ity o f (PF)) 23:30: 22:45 Push, [place] injection 00 :00 ONCE, 1 Medical 75 mcg dose, On Branch 03/20/21 at 1730, Routine ketorolac 2020-04- No 30mg 30 mg, Unive rs (TORADOL) 05-21 Slow IV ity of injection 23:30: 22:44 Push, [place] 30 mg 00 :00 ONCE, 1 Medical dose, On Branch 03/20/21 at 1730, Routine
[employer] team member approving Restricted medication : MEKA HAMMONDS ondansetron 2020-04- No 4mg 4 mg, Slow Univers (ZOFRAN 05-21 IV Push, ity of (PF)) 23:30: 22:44 ONCE, 1 [place] injection 4 00 :00 dose, On Medi brandy mg [facility] Branch 03/20/21 at 1730, [place] dicyclomine 2020-04- [...] dose, On Medica l [address] [facility] 03/20/21 at 1715, Routine ondansetron 2020-04- No ondansetro Univers 4 mg tablet 05-21 n HCl 4 mg i ty of 18:55: 00:00 tablet [place] 24 :00 Medical Branch metoclopram 2020-04 Yes [id number] 10mg Take 1 Univers selena HCl 10 2-06 tablet by ity of mg tablet 00:00: mouth [place] 00 every 6 Medical (six) Branch hours as needed for Nausea and Vomiting (N/V). dicyclomine 2020-04 Yes [id number] 20mg Take 1 Univers 20 mg 2-06 tablet by ity of tablet 00:00: mouth 4 [place] 00 (four) Medical times Branch daily. metoclopram 2020-04 Yes [id number] 10mg Take 1 Univers selena HCl 10 2-06 tablet by ity of mg tablet 00:00: mouth [place] 00 every 6 Medical (six) Branch hours as needed for Nausea and Vomiting (N/V). dicyclomine 2020-04 Yes [id number] 20mg Take 1 Univers 20 mg 2-06 tablet by ity of tablet 00:00: mouth 4 [place] 00 (four) Medical times Branch daily. metoclopram 2020-04 Yes [id number] 10mg Take 1 Univers selena HCl 10 2-06 tablet by ity of mg tablet 00:00: mouth [place] 00 every 6 Medical (six) Branch hours as needed for Nausea and Vomiting (N/V). dicyclomine 2020-04 Yes [id number] 20mg Take 1 Univers 20 mg 2-06 tablet by ity of tablet 00:00: mouth 4 [place] 00 (four) Medical times Branch daily. metoclopram 2020-04 Yes [id number] 10mg Take 1 Univers selena HCl 10 2-06 tablet by ity of mg tablet 00:00: mouth [place] 00 every 6 Medical (six) Branch hours as needed for Nausea and Vomiting (N/V). dicyclomine 2020-04 Yes [id number] 20mg Take 1 Univers 20 mg 2-06 tablet by ity of tablet 00:00: mouth 4 [place] 00 (four) Medical times Branch daily. metoclopram 2020-04 Yes [id number] 10mg Take 1 Univers selena HCl 10 2-06 tablet by ity of mg tablet 00:00: mouth [place] 00 every 6 Medical (six) Branch hours as needed for Nausea and Vomiting (N/V). dicyclomine 2020-04 Yes [id number] 20mg Take 1 Univers 20 mg 2-06 tablet by ity of tablet 00:00: mouth 4 00 (four) Medical times Branch daily. metoclopram 2020-04 Yes [id number] 10mg Take 1 Univers selena HCl 10 2-06 tablet by ity of mg tablet 00:00: mouth [place] 00 every 6 Medical (six) Branch hours as needed for Nausea and Vomiting (N/V). dicyclomine 2020-04 Yes [id number] 20mg Take 1 Univers 20 mg 2-06 tablet by ity of tablet 00:00: mouth 4 [place] 00 (four) Medical times Branch daily. metoclopram 2020-04 Yes [id number] 10mg Take 1 Univers selena HCl 10 2-06 tablet by ity of mg tablet 00:00: mouth [place] 00 every 6 Medical (six) Branch hours as needed for Nausea and Vomiting (N/V). dicyclomine 2020-04 Yes [id number] 20mg Take 1 Univers 20 mg 2-06 tablet by ity of tablet 00:00: mouth 4 [place] 00 (four) Medical times Branch daily. metoclopram 2020-04 Yes [id number] 10mg Take 1 Univers selena HCl 10 2-06 tablet by ity of mg tablet 00:00: mouth [place] 00 every 6 Medical (six) Branch hours as needed for Nausea and Vomiting (N/V). dicyclomine 2020-04 Yes [id number] 20mg Take 1 Univers 20 mg 2-06 tablet by ity of tablet 00:00: mouth [address] [place] [address] 00 (four) Medical times Branch daily. metoclopram 2020-04 Yes [id number] 10mg Take 1 Univers selena HCl 10 2-06 tablet by ity of mg tablet 00:00: mouth [place] 00 every 6 Medical (six) Branch hours as needed for Nausea and Vomiting (N/V). dicyclomine 2020-04 Yes [id number] 20mg Take 1 Univers 20 mg 2-06 tablet by ity of tablet 00:00: mouth [address] [place] [address] 00 (four) Medical times Branch daily. metoclopram 2020-04- No [id number] 10mg Take 1 Univers selena HCl 10 2-06 02-06 tablet by ity of mg tablet 00:00: 00:00 mouth [place] 00 :00 every 6 Medical (six) Branch hours as needed for Nausea and Vomiting (N/V). dicyclomine 2020-04- No [id number] 20mg Take 1 Univers 20 mg 2-06 02-06 tablet by ity of tablet 00:00: 00:[address] [place] [address] 00 :00 (four) Medical times Branch daily. famotidine 2020-04- No [id number] 20mg Take 1 Univers 20 mg 2-06 12-17 tablet by ity of tablet 00:00: 05:59 mouth at [place] 00 :00 bedtime Medical for 10 Branch days. famotidine 2020-04- No [id number] 20mg Take 1 Univers 20 mg 2-06 12-17 tablet by ity of tablet 00:00: 05:59 mouth at [place] 00 :00 bedtime Medical for 10 Branch days. famotidine 2020-04- No [id number] 20mg Take 1 Univers 20 mg 05-2117 tablet by ity of tablet 00:00: 05:59 mouth at [place] 00 :00 bedtime Medical for 10 Branch days. ketorolac 2020-04 No 30mg 30 mg, Unive rs (TORADOL) 04-15 Slow IV ity of injection 02:15: 01:11 Push, [place] 30 mg 00 :00 ONCE, 1 Medical dose, On [facility] 02/12/21 at 2115, Routine
[employer] team member approving Restricted medication : GABRIELE GRAYSON proMETHazin 2020-04 No 25mg 25 mg, IV Univers e 04-15 Piggyback, ity of (PHENERGAN) 02:15: 01:12 ONCE, 1 [place] 25 mg in 00 :00 dose, On Medical NaCl 0.9% [facility] (NS) 50 mL 02/12/21 piggyback at 2115, 50 mL iopamidol 2020-04- No [id number] 120mL 120 mL, Univers (ISOVUE 0-12 02- Intravenou ity o f 370-500 mL) 23:30: 22:13 s, ONCE, 1 [place] injection 00 :00 dose, On Medica l 120 mL [facility] 02/12/21 at 1830, Routine morpHINE 2020-04- No 4mg 4 mg, Slow Un you injection 4 02-12 IV Push, ity of mg 23:15: 22:23 ONCE, 1 [place] 00 :00 dose, On [facility] 02/12/21 at 1815, STAT famotidine 2020-04- No 20mg 20 mg, Univ ers (PEPCID 0-02-12 Slow IV ity of (PF)) 21:30: 20:28 Push, [place] injection 00 :00 ONCE, 1 Medical 20 mg dose, On [facility] 02/12/21 at 1630, [place] NaCl 0.9% 2020-04- No 1000mL at 999 Uni vers (NS) bolus 0-31 10-31 mL/hr, ity of infusion 21:30: 21:30 1,000 mL, [place] as 1,000 mL 00 :00 IV Medical Infusion, Branch ONCE, 1 dose, On [place] 02/12/21 at 1630, [place] ondansetron 2020-04 No [...] :00 ONCE, 1 Medical dose, On Branch [place] 02/12/21 at 1630, [place]
Fa [employer] member approving Restricted medication : ROSALINDA FISHER morpHINE 2020-04 No 4mg 4 mg, Slow Un you injection 4 002-12 IV Push, ity of mg 21:30: 20:23 ONCE, 1 [place] 00 :00 dose, On [facility] 02/12/21 at 1630, STAT ondansetron 2020-04 Yes [id number] 8mg Take 1 Univers 8 mg tablet 0-31 tablet by ity of 00:00: mouth [place] 00 every 8 Medical (eight) Branch hours as needed for Nausea and Vomiting (N/V). ondansetron 2020-04- No [id number] 8mg Take 1 Univers 8 mg tablet 0-31 12-06 tablet by it y of 00:00: 00:00 mouth [place] 00 :00 every 8 Medical (eight) Branch hours as needed for Nausea and Vomiting (N/V). morpHINE 2020-04 No 4mg 4 mg, Slow Un you injection 4 001-18 IV Push, ity of mg 07:00: 05:56 ONCE, 1 [place] 00 :00 dose, On [facility] 01/18/21 at 0200, STAT famotidine 2020-04 No 20mg 20 mg, Univ ers (PEPCID 0-09 22- Slow IV ity of (PF)) 06:00: 05:08 Push, [place] injection 00 :00 ONCE, 1 Medical 20 mg dose, On Branch [facility] 01/18/21 at 0100, Routine maalox:diph 2020-04 No 15mL 15 mL, Uni vers enhydrAMINE 0-06 10-06 Oral, ity of :lidocaine 06:00: 05:08 ONCE, 1 [place] 2 % viscous 00 :00 dose, On Medi brandy 1:1:1 Wed Branch ([facility] 01/18/21 at [facility]) 0100, oral Routine suspension 15 mL dicyclomine 2020-04- No 20mg 20 mg, Uni vers (BENTYL) 0-06 10-06 Oral, ity of tablet 20 06:00: 05:08 ONCE, 1 [place] mg 00 :00 dose, On Medical Wed Branch 01/18/21 at 0100, Routine iopamidol 2020-04- No [id number] 120mL 120 mL, Univers (ISOVUE 0-06 10-06 Intravenou ity o f 370-500 mL) 04:45: 03:33 s, ONCE, 1 [place] injection 00 :00 dose, On Medica l 120 mL [facility] Branch 01/17/21 at 2345, Routine morpHINE 2020-04- No 4mg 4 mg, Slow Un you injection 4 0-06 10-06 IV Push, ity of mg 03:45: 02:58 ONCE, 1 [place] 00 :00 dose, On Medical [facility] Branch 01/17/21 at 2245, STAT ondansetron 2020-04 No 4mg 4 mg, Slow Univers (ZOFRAN 0-06 10-06 IV Push, ity of (PF)) 03:45: 02:59 ONCE, 1 [place] injection 4 00 :00 dose, On [facility] brandy mg [facility] Branch 01/17/21 at 2245, [place] NaCl 0.9% 2020-04 No 1000mL at 999 Uni vers (NS) bolus 0-06 10-06 mL/hr, ity of infusion 03:45: 06:13 1,000 mL, [place] as 1,000 mL 00 :00 IV Medical Piggyback, Branch ONCE, 1 dose, On [facility] 01/17/21 at 2245, STAT diazePAM 2 0 Yes 2mg Take 2 [...] 4 mg it y of 11:25: tablet [place] [address] Medical Branch diazePAM 2 Yes 2mg Take 2 mg Un you mg tablet 9-25 by mouth. ity o f 11:25: [place] [address] Medical Branch erythromyci Yes erythromyc Univers n 5 mg/gram 9-25 in 5 ity of (0.5 %) 11:25: mg/gram [place] ophthalmic 57 (0.5 %) Medica l ointment eye Branch ointment ondansetron Yes ondansetro Univers 4 mg tablet 9-25 n HCl 4 mg it y of 11:25: tablet [place] [address] Medical Branch diazePAM 2 Yes 2mg Take 2 mg Un you mg tablet 9-25 by mouth. ity o f 11:25: [place] [address] Medical Branch erythromyci Yes erythromyc Univers n 5 mg/gram 9-25 in 5 ity of (0.5 %) 11:25: mg/gram [place] ophthalmic 57 (0.5 %) Medica l ointment eye Branch ointment ondansetron Yes ondansetro Univers 4 mg tablet 9-25 n HCl 4 mg it y of 11:25: tablet [place] [address] Medical Branch diazePAM 2 Yes 2mg Take 2 mg Un you mg tablet 9-25 by mouth. ity o f 11:25: [place] [address] Medical Branch erythromyci Yes erythromyc Univers n 5 mg/gram 9-25 in 5 ity of (0.5 %) 11:25: mg/gram [place] ophthalmic 57 (0.5 %) Medica l ointment eye Branch ointment ondansetron Yes ondansetro Univers 4 mg tablet 9-25 n HCl 4 mg it y of 11:25: tablet [place] [address] Medical Branch diazePAM 2 Yes 2mg Take 2 mg Un you mg tablet 9-25 by mouth. ity o f 11:25: [place] [address] Medical Branch erythromyci Yes erythromyc Univers n 5 mg/gram 9-25 in 5 ity of (0.5 %) 11:25: mg/gram [place] ophthalmic 57 (0.5 %) Medica l ointment eye Branch ointment ondansetron Yes ondansetro Univers 4 mg tablet 9-25 n HCl 4 mg it y of 11:25: tablet [place] [address] Medical Branch diazePAM 2 Yes 2mg Take 2 mg Un you mg tablet 9-25 by mouth. ity o f 11:25: [address] Branch erythromyci Yes erythromyc Univers n 5 mg/gram 9-25 in 5 ity of (0.5 %) 11:25: mg/gram [place] ophthalmic 57 (0.5 %) Medica l ointment eye Branch ointment ondansetron Yes ondansetro Univers 4 mg tablet 9-25 n HCl 4 mg it y of 11:25: tablet [place] [address] Medical Branch diazePAM 2 Yes 2mg Take 2 mg Un you mg tablet 9-25 by mouth. ity o f 11:25: [address] erythroci Yes erythromyc Univers n 5 mg/gram 9-25 in 5 ity of (0.5 %) 11:25: mg/gram [place] ophthalmic 57 (0.5 %) Medica l ointment eye Branch ointment diazePAM 2 Yes 2mg Take 2 mg Un yuo mg tablet 9-25 by mouth. ity o f 11:25: [address] Branch erythromyci Yes erythromyc Univers n 5 mg/gram 9-25 in 5 ity of (0.5 %) 11:25: mg/gram [place] ophthalmic 57 (0.5 %) Medica l ointment eye Branch ointment diazePAM 2 Yes 2mg Take 2 mg Un you mg tablet 9-25 by mouth. ity o f 11:25: [address] Branch erythromyci Yes erythromyc Univers n 5 mg/gram 9-25 in 5 ity of (0.5 %) 11:25: mg/gram [place] ophthalmic 57 (0.5 %) Medica l ointment eye Branch ointment diazePAM 2 Yes 2mg Take 2 mg Un you mg tablet 9-25 by mouth. ity o f 11:25: [place] [address] Medical Branch erythromyci Yes erythromyc Univers n 5 mg/gram 9-25 in 5 ity of (0.5 %) 11:25: mg/gram [place] ophthalmic 57 (0.5 %) Medica l ointment eye Branch ointment diazePAM 2 Yes 2mg Take 2 mg Un you mg tablet 9-25 by mouth. ity o f 11:25: [place] [address] Medical Branch erythromyci Yes erythromyc [facility] n 5 mg/gram 9-25 in 5 ity of (0.5 %) 11:25: mg/gram [place] ophthalmic 57 (0.5 %) Medica l ointment eye Branch ointment albuterol Yes [id number] 2{puff} Inhale 2 Univers 90 9-25 Puffs ity of mcg/actuati 00:00: every 6 [place] on inhaler 00 (six) Medical hours as Branch needed for Wheezing or Shortness of Breath. albuterol Yes [id number] 2{puff} Inhale 2 [facility] 90 9-25 Puffs ity of mcg/actuati 00:00: every 6 [place] on inhaler 00 (six) Medical hours as Branch needed for Wheezing or Shortness of Breath. albuterol Yes [id number] 2{puff} Inhale 2 [facility] 90 9-25 Puffs ity of mcg/actuati 00:00: every 6 [place] on inhaler 00 (six) Medical hours as Branch needed for Wheezing or Shortness of Breath. albuterol Yes [id number] 2{puff} Inhale 2 [facility] 90 9-25 Puffs ity of mcg/actuati 00:00: every 6 [place] on inhaler 00 (six) Medical hours as Branch needed for Wheezing or Shortness of Breath. albuterol Yes [id number] 2{puff} Inhale 2 [facility] 90 9-25 Puffs ity of mcg/actuati 00:00: every 6 [place] on inhaler 00 (six) Medical hours as Branch needed for Wheezing or Shortness of Breath. albuterol Yes [id number] 2{puff} Inhale 2 [facility] 90 9-25 Puffs ity of mcg/actuati 00:00: every 6 [place] on inhaler 00 (six) Medical hours as Branch needed for Wheezing or Shortness of Breath. albuterol Yes [id number] 2{puff} Inhale 2 [facility] 90 9-25 Puffs ity of mcg/actuati 00:00: every 6 [place] on inhaler 00 (six) Medical hours as Branch needed for Wheezing or Shortness of Breath. albuterol Yes [id number] 2{puff} Inhale 2 [facility] 90 9-25 Puffs ity of mcg/actuati 00:00: every 6 [place] on inhaler 00 (six) Medical hours as Branch needed for Wheezing or Shortness of Breath. albuterol Yes [id number] 2{puff} Inhale 2 [facility] 90 9-25 Puffs ity of mcg/actuati 00:00: every 6 [place] on inhaler 00 (six) Medical hours as Branch needed for Wheezing or Shortness of Breath. albuterol Yes [id number] 2{puff} Inhale 2 [facility] 90 9-25 Puffs ity of mcg/actuati 00:00: every 6 [place] on inhaler 00 (six) Medical hours as Branch needed for Wheezing or Shortness of Breath. albuterol Yes [id number] 2{puff} Inhale 2 [facility] 90 9-25 Puffs ity of mcg/actuati 00:00: every 6 [place] on inhaler 00 (six) Medical hours as Branch needed for Wheezing or Shortness of Breath. albuterol Yes [id number] 2{puff} Inhale 2 [facility] 90 9-25 Puffs ity of mcg/actuati 00:00: every 6 [place] on inhaler 00 (six) Medical hours as Branch needed for Wheezing or Shortness of Breath. albuterol Yes [id number] 2{puff} Inhale 2 [facility] 90 9-25 Puffs ity of mcg/actuati 00:00: every 6 [place] on inhaler 00 (six) Medical hours as Branch needed for Wheezing or Shortness of Breath. albuterol Yes [id number] 2{puff} Inhale 2 [facility] 90 9-25 Puffs ity of mcg/actuati 00:00: every 6 [place] on inhaler 00 (six) Medical hours as Branch needed for Wheezing or Shortness of Breath. albuterol Yes [id number] 2{puff} Inhale 2 [facility] 90 9-25 Puffs ity of mcg/actuati 00:00: every 6 [place] on inhaler 00 (six) Medical hours as Branch needed for Wheezing or Shortness of Breath. albuterol Yes [id number] 2{puff} Inhale 2 [facility] 90 9-25 Puffs ity of mcg/actuati 00:00: every 6 [place] on inhaler 00 (six) Medical hours as Branch needed for Wheezing or Shortness of Breath. albuterol Yes [id number] 2{puff} Inhale 2 [facility] 90 9-25 Puffs ity of mcg/actuati 00:00: every 6 [place] on inhaler 00 (six) Medical hours as Branch needed for Wheezing or Shortness of Breath. albuterol Yes [id number] 2{puff} Inhale 2 [facility] 90 9-25 Puffs ity of mcg/actuati 00:00: every 6 [place] on inhaler 00 (six) Medical hours as Branch needed for Wheezing or Shortness of Breath. albuterol Yes [id number] 2{puff} Inhale 2 [facility] 90 9-25 Puffs ity of mcg/actuati 00:00: every 6 [place] on inhaler 00 (six) Medical hours as Branch needed for Wheezing or Shortness of Breath. albuterol Yes [id number] 2{puff} Inhale 2 [facility] 90 9-25 Puffs ity of mcg/actuati 00:00: every 6 [place] on inhaler 00 (six) Medical hours as Branch needed for Wheezing or Shortness of Breath. albuterol Yes [id number] 2{puff} Inhale 2 [facility] 90 9-25 Puffs ity of mcg/actuati 00:00: every 6 [place] on inhaler 00 (six) Medical hours as Branch needed for Wheezing or Shortness of Breath. albuterol Yes [id number] 2{puff} Inhale 2 [facility] 90 9-25 Puffs ity of mcg/actuati 00:00: every 6 [place] on inhaler 00 (six) Medical hours as Branch needed for Wheezing or Shortness of Breath. albuterol Yes [id number] 2{puff} Inhale 2 [facility] 90 9-25 Puffs ity of mcg/actuati 00:00: every 6 [place] on inhaler 00 (six) Medical hours as Branch needed for Wheezing or Shortness of Breath. albuterol 2021- No [id number] 2{puff} Inhale 2 [facility] 90 9-25 05-20 Puffs ity of mcg/actuati 00:00: 00:00 every 6 [place] inhaler 00 :00 (six) Medical hours as Branch needed for Wheezing or Shortness of Breath. promethazin 2020- No [id number] 5mL Take 5 mL Univers e-dextromet 9-25 10-03 by mouth 4 i ty of horphan 00:00: 04:59 (four) [place] 6.25-15 00 :00 times Medical mg/5 mL daily as Branch syrup needed for Cough or Cold symptoms for up to 7 days. promethazin 2020- No [id number] 5mL Take 5 mL Univers e-dextromet 9-25 10-03 by mouth 4 i ty of horphan 00:00: 04:59 (four) [place] 6.25-15 00 :00 times Medical mg/5 mL daily as Branch syrup needed for Cough or Cold symptoms for up to 7 days. promethazin 2020- No [id number] 5mL Take 5 mL Univers e-dextromet 9-25 10-03 by mouth 4 i ty of horphan 00:00: 04:59 (four) [place] 6.25-15 00 :00 times Medical mg/5 mL daily as Branch syrup needed for Cough or Cold symptoms for up to 7 days. tiZANidine Yes Univers 2 mg tablet 9-23 ity of 00:00: 00 Medical Branch tiZANidine Yes Univers 2 [...] 9- ity of 00:00: Medical Branch tiZANidine 1-0 Yes Univers 2 mg tablet 9-23 ity of 00:00: Medical Branch tiZANidine 2020-0 Yes Univers 2 mg tablet 9- ity of 00:00: Medical Branch tiZANidine 2020-0 Yes Univers 2 mg tablet 9- ity of 00:00: Medical Branch tiZANidine 2020-0 Yes Univers 2 mg tablet 9-23 ity of 00:00: Medical Branch tiZANidine 2021-0 Yes Univers 2 [...] [place] 00 Medical Branch tiZANidine 2021-0 Yes 4mg [...] [place] 00 times Medical daily. Branch tiZANidine Yes [...] 2 % viscous 00 :00 dose, On [facility] brandy 1:1:1 Fri Branch (FIRST-MOUT 12/30/20 at [facility]) 1645, oral Routine suspension 15 [...] 2 % viscous 00 :00 dose, On [facility] brandy 1:1:1 Fri Branch (FIRST-MOUT 12/30/20 at [facility]) 1645, oral Routine suspension 15 mL famotidine No 20mg 20 mg, Univ ers (PEPCID 12-30 Slow IV ity of (PF)) 21:45: 20:37 Push, [place] injection 00 :00 ONCE, 1 Medical 20 mg dose, On Branch 12/30/20 at 1645, Routine iopamidol 2020- No [id number] 80mL 80 mL, Univers (ISOVUE 12-30 Intravenou ity o f 370-500 mL) 20:00: 18:48 s, ONCE, 1 [place] injection 00 :00 dose, On Medica l 80 mL Fri Branch 12/30/20 at 1500, Routine iopamidol 0 2020- No [id number] 80mL 80 mL, Univers (ISOVUE 12-30 Intravenou ity o f 370-500 mL) 20:00: 18:48 s, ONCE, 1 [place] injection 00 :00 dose, On Medica l 80 mL Fri [place] 12/30/20 at 1500, Routine morpHINE 2020-0 2020- No 4mg 4 mg, Slow Un you injection 4 12-30 IV Push, ity of mg 19:30: 18:35 ONCE, 1 [place] 00 :00 dose, On Medical Fri Branch 12/30/20 at 1430, STAT ondansetron 2020-0 2020- No 4mg 4 mg, Slow Univers (ZOFRAN 12-30 IV Push, ity of (PF)) 19:30: 18:35 ONCE, 1 [place] injection 4 00 :00 dose, On Medi brandy mg Sat [place] 12/30/20 at 1430, [place] NaCl 0.9% 2020- [...] ONCE, 1 [place] 00 :00 dose, On Sat [place] 12/30/20 at 1430, STAT ondansetron 2020- No [...] by ity of tablet 10:15: mouth at [place] [address] bedtime. Medical Branch traZODone 2020-0 Yes 100mg Take 100 Uni vers 100 mg 9-17 mg by ity of tablet 10:15: mouth at [place] [address] bedtime. Medical Branch traZODone 2020-0 Yes 100mg Take 100 Uni vers 100 mg 9-17 mg by ity of tablet 10:15: mouth at [place] [address] bedtime. Medical Branch traZODone 2020-0 Yes 100mg Take 100 Uni vers 100 mg 9-17 mg by ity of tablet 10:15: mouth at [place] [address] bedtime. Medical Branch traZODone 2020-0 Yes 100mg Take 100 Uni vers 100 mg 9-17 mg by ity of tablet 10:15: mouth at [place] [address] bedtime. Medical Branch traZODone 2020-0 Yes 100mg Take 100 Uni vers 100 mg 9-17 mg by ity of tablet 10:15: mouth at [place] [address] bedtime. Medical Branch traZODone 2020-0 Yes 100mg Take 100 Uni vers 100 mg 9-17 mg by ity of tablet 10:15: mouth at [place] [address] bedtime. Medical Branch traZODone 2020-0 Yes 100mg Take 100 Uni vers 100 mg 9-17 mg by ity of tablet 10:15: mouth at [place] [address] bedtime. Medical Branch traZODone 2020-0 Yes 100mg Take 100 Uni vers 100 mg 9-17 mg by ity of tablet 10:15: mouth at [place] [address] bedtime. Medical Branch traZODone 2020-0 Yes 100mg Take 100 Uni vers 100 mg 9-17 mg by ity of tablet 10:15: mouth at [place] [address] bedtime. Medical Branch traZODone 2020-0 Yes 100mg Take 100 Uni vers 100 mg 9-17 mg by ity of tablet 10:15: mouth at [place] [address] bedtime. Medical Branch traZODone 2020-0 Yes 100mg Take 100 Uni vers 100 mg 9-17 mg by ity of tablet 10:15: mouth at [place] [address] bedtime. Medical Branch traZODone 2020-0 Yes 100mg Take 100 Uni vers 100 mg 9-17 mg by ity of tablet 10:15: mouth at [place] [address] bedtime. Medical Branch traZODone 2020-0 Yes 100mg [...] 06 bedtime. Medical Branch dicyclomine 2020-0 Yes [id number] 20mg Take 1 Univers 20 mg 9-17 tablet by ity of tablet 00:00: mouth [place] 00 every 6 Medical (six) Branch hours as needed for Abdominal pain. dicyclomine 2020-0 Yes [id number] 20mg Take 1 Univers 20 mg 9-17 tablet by ity of tablet 00:00: mouth [place] 00 every 6 Medical (six) Branch hours as needed for Abdominal pain. dicyclomine 2020-0 Yes [id number] 20mg Take 1 Univers 20 mg 9-17 tablet by ity of tablet 00:00: mouth [place] 00 every 6 Medical (six) Branch hours as needed for Abdominal pain. dicyclomine 2020-0 Yes [id number] 20mg Take 1 [facility] 20 mg 9-17 tablet by ity of tablet 00:00: mouth [place] 00 every 6 Medical (six) Branch hours as needed for Abdominal pain. dicyclomine 2020-0 Yes [id number] 20mg Take 1 [facility] 20 mg 9-17 tablet by ity of tablet 00:00: mouth [place] 00 every 6 Medical (six) Branch hours as needed for Abdominal pain. dicyclomine 2020-0 Yes [id number] 20mg Take 1 [facility] 20 mg 9-17 tablet by ity of tablet 00:00: mouth [place] 00 every 6 Medical (six) Branch hours as needed for Abdominal pain. dicyclomine 2020-0 Yes [id number] 20mg Take 1 [facility] 20 mg 9-17 tablet by ity of tablet 00:00: mouth [place] 00 every 6 Medical (six) Branch hours as needed for Abdominal pain. dicyclomine 2020-0 Yes [id number] 20mg Take 1 [facility] 20 mg 9-17 tablet by ity of tablet 00:00: mouth [place] 00 every 6 Medical (six) Branch hours as needed for Abdominal pain. dicyclomine 2020-0 Yes [id number] 20mg Take 1 [facility] 20 mg 9-17 tablet by ity of tablet 00:00: mouth [place] 00 every 6 Medical (six) Branch hours as needed for Abdominal pain. dicyclomine 2020-0 Yes [id number] 20mg Take 1 [facility] 20 mg 9-17 tablet by ity of tablet 00:00: mouth [place] 00 every 6 Medical (six) Branch hours as needed for Abdominal pain. dicyclomine 2020-0 Yes [id number] 20mg Take 1 [facility] 20 mg 9-17 tablet by ity of tablet 00:00: mouth [place] 00 every 6 Medical (six) Branch hours as needed for Abdominal pain. dicyclomine 2020-0 Yes [id number] 20mg Take 1 [facility] 20 mg 9-17 tablet by ity of tablet 00:00: mouth [place] 00 every 6 Medical (six) Branch hours as needed for Abdominal pain. dicyclomine 2020-0 Yes [id number] 20mg Take 1 [facility] 20 mg 9-17 tablet by ity of tablet 00:00: mouth [place] 00 every 6 Medical (six) Branch hours as needed for Abdominal pain. dicyclomine 2020-0 Yes [id number] 20mg Take 1 Univers 20 mg 9-17 tablet by ity of tablet 00:00: mouth [place] 00 every 6 Medical (six) Branch hours as needed for Abdominal pain. dicyclomine 2020-0 Yes [id number] 20mg Take 1 Univers 20 mg 9-17 tablet by ity of tablet 00:00: mouth [place] 00 every 6 Medical (six) Branch hours as needed for Abdominal pain. dicyclomine 2020-0 Yes [id number] 20mg Take 1 Univers 20 mg 9-17 tablet by ity of tablet 00:00: mouth [place] 00 every 6 Medical (six) Branch hours as needed for Abdominal pain. dicyclomine 2020-0 Yes [id number] 20mg Take 1 [facility] 20 mg 9-17 tablet by ity of tablet 00:00: mouth [place] 00 every 6 Medical (six) Branch hours as needed for Abdominal pain. dicyclomine 2021-0 2022- No [id number] 20mg Take 1 Univers 20 mg 9-17 [...] 50 (two) Medical times Branch daily. cephALEXin 2020- No [id number] 500mg Take 1 Univers 500 mg 12-16 capsule by ity of capsule 00:00: 04:59 mouth 4 [place] 00 :00 (four) Medical times [place] daily for 7 days. cephALEXin 2020- No [id number] 500mg Take 1 Univers 500 mg 12-16 capsule by ity of capsule 00:00: 04:59 mouth 4 [place] 00 :00 (four) Medical times [place] daily for 7 days. hydrOXYzine 0 Yes Univer s 25 mg 9- ity of tablet 00:00: [place] Medical Branch SERTraline 2020-0 Yes Univers 25 mg 9- ity of tablet 00:00: [place] [facility] Branch hydrOXYzine 2020-0 Yes Univer s 25 mg 9- ity of tablet 00:00: [address] Branch SERTraline 2020-0 Yes Univers 25 mg 9- ity of tablet 00:00: [place] [facility] Branch hydrOXYzine 2020-0 Yes Univer s 25 mg 9- ity of tablet 00:00: [place] [facility] Branch SERTraline 2020-0 Yes Univers 25 mg 9- ity of tablet 00:00: [place] [facility] Branch hydrOXYzine 2020-0 Yes Univer s 25 mg 9- ity of tablet 00:00: [place] [facility] Branch SERTraline 2020-0 Yes Univers 25 mg 9- ity of tablet 00:00: [place] Medical Branch hydrOXYzine 2020-0 Yes Univer s 25 mg 9-01 ity of tablet 00:00: [place] [facility] Branch SERTraline 2020-0 Yes Univers 25 mg 9-01 ity of tablet 00:00: [place] [facility] hydrOXYzine 2020-0 Yes Univer s 25 mg 9- ity of tablet 00:00: [place] [facility] Branch SERTraline 2020-0 Yes Univers 25 mg 9-01 ity of tablet 00:00: [place] [facility] Branch [...] 25 mg 9- ity of tablet 00:00: [place] [address] Medical Branch SERTraline 2020-0 Yes Univers 25 mg 9- ity of tablet 00:00: [place] Medical Branch hydrOXYzine 2020-0 Yes Univer s 25 mg 9- ity of tablet 00:00: [place] Medical Branch SERTraline 2020-0 Yes Univers 25 mg 9- ity of tablet 00:00: [place] Medical Branch hydrOXYzine 2020-0 Yes Univer s 25 mg 9- ity of tablet 00:00: [place] [address] Medical Branch SERTraline 2020-0 Yes Univers 25 mg 9- ity of tablet 00:00: [place] Medical Branch hydrOXYzine 2020-0 Yes Univer s 25 mg 9- ity of tablet 00:00: [place] [address] Medical Branch SERTraline 2020-0 Yes Univers 25 mg 9- ity of tablet 00:00: [place] Medical Branch SERTraline 2020-0 Yes Univers 25 mg 9- ity of tablet 00:00: [place] [facility] SERTraline Yes Univers 25 mg 12-14 ity of tablet 00:00: [place] [facility] SERTraline Yes Univers 25 mg 12-14 ity of tablet 00:00: [facility] SERTraline Yes Univers 25 mg 12-14 ity of tablet 00:00: [place] [facility] SERTraline Yes Univers 25 mg 12-14 ity of tablet 00:00: [place] [facility] SERTraline Yes Univers 25 mg 12-14 ity of tablet 00:00: [place] [facility] SERTraline Yes Univers 25 mg 12-14 ity of tablet 00:00: [place] [facility] SERTraline Yes Univers 25 mg 12-14 ity of tablet 00:00: [place] [facility] SERTraline 2021- No Univer s 25 mg 12-14 05-20 ity of tablet 00:00: 00:00 [place] 00 :00 [facility] hydrOXYzine 2021- No Unive rs 25 mg 12-14 02-06 ity of tablet 00:00: 00:00 [place] 00 :00 [facility] morpHINE 2020- No 4mg 4 mg, Slow Un oyu injection 4 12-06 IV Push, ity of mg 00:00: 23:00 ONCE, 1 [place] 00 :00 dose, [facility] 12/05/20 at Branch 1900, STAT dicyclomine 2020- No 20mg 20 mg, Uni vers (BENTYL) 12-06 Intramuscu ity of injection 00:00: 23:00 [place], ONCE, [place] 20 mg 00 :00 1 dose, [facility] 12/05/20 at 1900, Routine iopamidol 2020- No [id number] 120mL 120 mL, Univers (ISOVUE 12-05 Intravenou ity o f 370-500 mL) 22:30: 21:20 s, ONCE, 1 [place] injection 00 :00 dose, Mon Medic al 120 mL 12/05/20 at Branch 1730, Routine famotidine 2020- No 20mg 20 mg, Univ ers (PEPCID 12-05 Slow IV ity of (PF)) 22:15: 22:14 Push, [place] injection 00 :00 ONCE, 1 Medical 20 mg dose, [facility] 12/05/20 at 1715, [place] maalox:diph 2020- No 15mL 15 mL, Uni vers enhydrAMINE 12-05 Oral, ity of :lidocaine 22:15: 22:13 ONCE, 1 [place] as 2 % viscous 00 :00 dose, Mon Med ical 1:1:1 12/05/20 at [place] (FIRST-MOUT 1715, HWASH BLM) Routine oral suspension 15 mL NaCl 0.9% 2020- No 1000mL at 999 Uni vers (NS) bolus 12-05 mL/hr, ity of infusion 22:00: 23:51 1,000 mL, [place] as 1,000 mL 00 :00 IV Medical Piggyback, [place] ONCE, 1 dose, [facility] 12/05/20 at 1700, STAT ondansetron 2020- No 4mg 4 mg, Slow Univers (ZOFRAN 12-05 IV Push, ity of (PF)) 22:00: 22:13 ONCE, 1 [place] injection 4 00 :00 dose, Mon Med ical mg 12/05/20 at [place] 1700, [place] morpHINE 2020- No 4mg 4 mg, Slow Un you injection 4 12-05 IV Push, ity of mg 22:00: 22:15 ONCE, 1 [place] 00 :00 dose, [facility] 12/05/20 at [place] 1700, STAT ondansetron Yes [id number] 4mg Take 1 Univers 4 mg 8-23 tablet by ity of disintegrat 00:00: mouth [place] ing tablet 00 every 8 Medica l (eight) Branch hours as needed for Nausea and Vomiting (N/V). ondansetron 2020-0 Yes [id number] 4mg Take 1 Univers 4 mg 8-23 tablet by ity of disintegrat 00:00: mouth [place] ing tablet 00 every 8 Medica l (eight) Branch hours as needed for Nausea and Vomiting (N/V). ondansetron 2020-0 Yes [id number] 4mg Take 1 Univers 4 mg 8-23 tablet by ity of disintegrat 00:00: mouth [place] ing tablet 00 every 8 Medica l (eight) Branch hours as needed for Nausea and Vomiting (N/V). ondansetron 2020-0 Yes [id number] 4mg Take 1 Univers 4 mg 8-23 tablet by ity of disintegrat 00:00: mouth [place] ing tablet 00 every 8 Medica l (eight) Branch hours as needed for Nausea and Vomiting (N/V). ondansetron 2020-0 Yes [id number] 4mg Take 1 Univers 4 mg 8-23 tablet by ity of disintegrat 00:00: mouth [place] ing tablet 00 every 8 Medica l (eight) Branch hours as needed for Nausea and Vomiting (N/V). ondansetron 2020-0 Yes [id number] 4mg Take 1 Univers 4 mg 8-23 tablet by ity of disintegrat 00:00: mouth [place] ing tablet 00 every 8 Medica l (eight) Branch hours as needed for Nausea and Vomiting (N/V). ondansetron 2020-0 Yes [id number] 4mg Take 1 Univers 4 mg 8-23 tablet by ity of disintegrat 00:00: mouth [place] ing tablet 00 every 8 Medica l (eight) Branch hours as needed for Nausea and Vomiting (N/V). ondansetron 2020-0 Yes [id number] 4mg Take 1 Univers 4 mg 8-23 tablet by ity of disintegrat 00:00: mouth [place] ing tablet 00 every 8 Medica l (eight) Branch hours as needed for Nausea and Vomiting (N/V). ondansetron 2020-0 Yes [id number] 4mg Take 1 Univers 4 mg 8-23 tablet by ity of disintegrat 00:00: mouth [place] ing tablet 00 every 8 Medica l (eight) Branch hours as needed for Nausea and Vomiting (N/V). ondansetron 2020-0 Yes [id number] 4mg Take 1 Univers 4 mg 8-23 tablet by ity of disintegrat 00:00: mouth [place] ing tablet 00 every 8 Medica l (eight) Branch hours as needed for Nausea and Vomiting (N/V). ondansetron 2020-0 Yes [id number] 4mg Take 1 Univers 4 mg 8-23 tablet by ity of disintegrat 00:00: mouth [place] ing tablet 00 every 8 Medica l (eight) Branch hours as needed for Nausea and Vomiting (N/V). ondansetron 2020-0 Yes [id number] 4mg Take 1 Univers 4 mg 8-23 tablet by ity of disintegrat 00:00: mouth [place] ing tablet 00 every 8 Medica l (eight) Branch hours as needed for Nausea and Vomiting (N/V). ondansetron 2020-0 Yes [id number] 4mg Take 1 Univers 4 mg 8-23 tablet by ity of disintegrat 00:00: mouth [place] ing tablet 00 every 8 Medica l (eight) Branch hours as needed for Nausea and Vomiting (N/V). ondansetron 2020-0 Yes [id number] 4mg Take 1 Univers 4 mg 8-23 tablet by ity of disintegrat 00:00: mouth [place] ing tablet 00 every 8 Medica l (eight) Branch hours as needed for Nausea and Vomiting (N/V). ondansetron 2020-0 Yes [id number] 4mg Take 1 Univers 4 mg 8-23 tablet by ity of disintegrat 00:00: mouth [place] ing tablet 00 every 8 Medica l (eight) Branch hours as needed for Nausea and Vomiting (N/V). ondansetron 2020-0 Yes [id number] 4mg Take 1 Univers 4 mg 8-23 tablet by ity of disintegrat 00:00: mouth [place] ing tablet 00 every 8 Medica l (eight) Branch hours as needed for Nausea and Vomiting (N/V). ondansetron 2020-0 Yes [id number] 4mg Take 1 Univers 4 mg 8-23 tablet by ity of disintegrat 00:00: mouth [place] ing tablet 00 every 8 Medica l (eight) Branch hours as needed for Nausea and Vomiting (N/V). ondansetron 2020-0 Yes [id number] 4mg Take 1 Univers 4 mg 8-23 tablet by ity of disintegrat 00:00: mouth [place] ing tablet 00 every 8 Medica l (eight) Branch hours as needed for Nausea and Vomiting (N/V). ondansetron 2020-0 Yes [id number] 4mg Take 1 Univers 4 mg 8-23 tablet by ity of disintegrat 00:00: mouth [place] ing tablet 00 every 8 Medica l (eight) Branch hours as needed for Nausea and Vomiting (N/V). ondansetron Yes [id number] 4mg Take 1 Univers 4 mg 8-23 tablet by ity of disintegrat 00:00: mouth [place] ing tablet 00 every 8 Medica l (eight) Branch hours as needed for Nausea and Vomiting (N/V). ondansetron Yes [id number] 4mg Take 1 Univers 4 mg 8-23 tablet by ity of disintegrat 00:00: mouth [place] ing tablet 00 every 8 Medica l (eight) Branch hours as needed for Nausea and Vomiting (N/V). ondansetron Yes [id number] 4mg Take 1 Univers 4 mg 8-23 tablet by ity of disintegrat 00:00: mouth [place] ing tablet 00 every 8 Medica l (eight) Branch hours as needed for Nausea and Vomiting (N/V). ondansetron Yes [id number] 4mg Take 1 Univers 4 mg 8-23 tablet by ity of disintegrat 00:00: mouth [place] ing tablet 00 every 8 Medica l (eight) Branch hours as needed for Nausea and Vomiting (N/V). ondansetron Yes [id number] 4mg Take 1 Univers 4 mg 8-23 tablet by ity of disintegrat 00:00: mouth [place] ing tablet 00 every 8 Medica l (eight) Branch hours as needed for Nausea and Vomiting (N/V). ondansetron 2021- No [id number] 4mg Take 1 Univers 4 mg 8-23 02-06 tablet by ity of disintegrat 00:00: 00:00 mouth [place] tablet 00 :00 every 8 Medica l (eight) Branch hours as needed for Nausea and Vomiting (N/V). dicyclomine 2020- No [id number] 20mg Take 1 Univers 20 mg 8-23 [...] by ity of tablet 01:44: mouth at [place] [address] bedtime. Medical Branch losartan 0 Yes 100mg [...] by ity of tablet 01:44: mouth at [place] [address] bedtime. Medical Branch losartan Yes 100mg Take 100 Univ ers 100 mg 7-01 mg by ity of tablet 01:44: mouth [place] 06 daily. Medical Branch gabapentin Yes 300mg Take 300 Un you 300 mg 7-01 mg by ity of capsule 01:44: mouth 2 [place] [address] (two) Medical times Branch daily. HYDROcodone Yes 1{tbl} 1 tablet, Univers -acetaminop 7 Oral, BID, it y of hen (NORCO 01:00: First dose [place] 5) 5-325 mg 00 on Sat Medica l tablet 1 10/12/20 at [facility] h tablet 2000, Until Discontinu ed, Routine proMETHazin [...] ONCE, 1 [place] 00 :[place] dose, [facility] Medical 10/12/20 at Branch 1245, Routine [...] mg 00 First dose Medical on Sat [place] 10/12/20 at 0900, Until Discontinu ed, Routine ursodioL 0 Yes 250mg 250 mg, Unive rs (EUGENE) 6-30 Oral, BID, ity of tablet 250 13:00: First dose [place] mg 00 on [facility] 10/12/20 at Branch 0800, Until Discontinu [...] First dose [place] mg 00 on [facility] 10/11/20 at Branch 2200, Until Discontinu ed, Routine gabapentin 0 Yes 300mg 300 mg, Uni vers (NEURONTIN) 6-30 Oral, BID, it y of capsule 300 03:00: First dose [place] mg 00 on [facility] 10/11/20 at Branch 2200, Until Discontinu ed, Routine ondansetron Yes 4mg 4 mg, Slow Univers (ZOFRAN 6-30 IV Push, ity of (PF)) 02:52: Q6HPRN, [place] injection 4 29 Starting Medi brandy mg [facility] 10/11/20 at 2152, Until Discontinu ed, Routine, Nausea and Vomiting (N/V) HYDROcodone 0 2020- No 1{tbl} 1 tablet, Univers -acetaminop 630 06-30 Oral, ity of hen (NORCO) 02:52: 15:44 Q6HPRN, [place] 10-325 mg 25 :37 Starting Medica l tablet 1 [facility] [facility] tablet 10/11/20 at 2152, Until 10/12/20 at 1044, Routine, Pain (scale 7-10) HYDROcodone 2020-2020- No 1{tbl} 1 tablet, Univers -acetaminop 10-12 07-02 Oral, ity of hen (NORCO 02:51: 02:50 Q6HPRN, [place] as 5) 5-325 mg 18 :18 Starting Medi brandy tablet 1 [facility] tablet 10/11/20 at 2151, Until [place] 10/13/20 at 2150, Routine, Pain (scale 4-6) ibuprofen Yes 200mg 200 mg, Univ ers (MOTRIN IB) 630 Oral, ity of tablet 200 02:51: Q6HPRN[place] 13 Starting Medical [facility] 10/11/20 at 2151, Until Discontinu ed, Routine, Pain (scale 1-3) morpHINE 2020- No 4mg 4 mg, Slow Un you injection 4 30 06-30 IV Push, ity of mg 01:15: 00:14 ONCE, 1 [place] 00 :00 dose, [facility] 10/11/20 at Branch 2014, STAT fenofibrate Yes [id number] 145mg Take 1 [facility] 145 mg 6-30 tablet by ity of tablet 00:00: mouth [place] 00 daily. [facility] Branch lipase-prot Yes [id number] 3{capsu Take 3 [facility] ease-amylas 6-30 le} capsules ity of e 00:00: by mouth 3 [place] 12,000-38,0 00 (three) Medic al 00 -60,000 times Branch unit daily with capsule meals. ursodioL 0 Yes [id number] 250mg Take 1 Un you 250 mg 6-30 tablet by ity of tablet 00:00: mouth 2 [place] 00 (two) Medical times Branch daily. fenofibrate 0 Yes [id number] 145mg Take 1 [facility] 145 mg 6-30 tablet by ity of tablet 00:00: mouth [place] 00 daily. [facility] Branch lipase-prot Yes 3{capsu Take 3 [facility] ease-amylas 6-30 le} capsules ity of e 00:00: by mouth 3 [place] 12,000-38,0 00 (three) Medic al 00 -60,000 times Branch unit daily with capsule meals. ursodioL 2020-0 Yes [id number] 250mg Take 1 Un you 250 mg 6-30 tablet by ity of tablet 00:00: mouth 2 00 (two) Medical times Branch daily. fenofibrate 2020-0 Yes [id number] 145mg Take 1 [facility] 145 mg 6-30 tablet by ity of tablet 00:00: mouth [place] 00 daily. Medical Branch lipase-prot 2020-0 Yes [id number] 3{capsu Take 3 [facility] ease-amylas 6-30 le} capsules ity of e 00:00: by mouth 3 [place] 12,000-38,0 00 (three) Medic al 00 -60,000 times Branch unit daily with capsule meals. ursodioL 2020-0 Yes [id number] 250mg Take 1 Un you 250 mg 6-30 tablet by ity of tablet 00:00: mouth 2 00 (two) Medical times Branch daily. fenofibrate 2020-0 Yes [id number] 145mg Take 1 [facility] 145 mg 6-30 tablet by ity of tablet 00:00: mouth 00 daily. Medical Branch lipase-prot 2020-0 Yes [id number] 3{capsu Take 3 [facility] ease-amylas 6-30 le} capsules ity of e 00:00: by mouth 3 [place] 12,000-38,0 00 (three) Medic al 00 -60,000 times Branch unit daily with capsule meals. ursodioL 2020-0 Yes [id number] 250mg Take 1 Un you 250 mg 6-30 tablet by ity of tablet 00:00: mouth 2 00 (two) Medical times Branch daily. fenofibrate 2020-0 Yes [id number] 145mg Take 1 [facility] 145 mg 6-30 tablet by ity of tablet 00:00: mouth 00 daily. Medical Branch lipase-prot 2020-0 Yes [id number] 3{capsu Take 3 [facility] ease-amylas 6-30 le} capsules ity of e 00:00: by mouth 3 [place] 12,000-38,0 00 (three) Medic al 00 -60,000 times Branch unit daily with capsule meals. ursodioL 2020-0 Yes [id number] 250mg Take 1 Un you 250 mg 6-30 tablet by ity of tablet 00:00: mouth 2 00 (two) Medical times Branch daily. fenofibrate 2020-0 Yes [id number] 145mg Take 1 [facility] 145 mg 6-30 tablet by ity of tablet 00:00: mouth [place] 00 daily. Medical Branch lipase-prot 2020-0 Yes [id number] 3{capsu Take 3 [facility] ease-amylas 6-30 le} capsules ity of e 00:00: by mouth 3 [place] 12,000-38,0 00 (three) Medic al 00 -60,000 times Branch unit daily with capsule meals. ursodioL 2020-0 Yes [id number] 250mg Take 1 Un you 250 mg 6-30 tablet by ity of tablet 00:00: mouth 2 00 (two) Medical times Branch daily. fenofibrate 2020-0 Yes [id number] 145mg Take 1 [facility] 145 mg 6-30 tablet by ity of tablet 00:00: mouth 00 daily. Medical Branch lipase-prot 2020-0 Yes [id number] 3{capsu Take 3 [facility] ease-amylas 6-30 le} capsules ity of e 00:00: by mouth 3 [place] 12,000-38,0 00 (three) Medic al 00 -60,000 times Branch unit daily with capsule meals. ursodioL 2020-0 Yes [id number] 250mg Take 1 Un you 250 mg 6-30 tablet by ity of tablet 00:00: mouth 2 00 (two) Medical times Branch daily. fenofibrate 2020-0 Yes [id number] 145mg Take 1 [facility] 145 mg 6-30 tablet by ity of tablet 00:00: mouth 00 daily. Medical Branch lipase-prot 2020-0 Yes [id number] 3{capsu Take 3 [facility] ease-amylas 6-30 le} capsules ity of e 00:00: by mouth 3 [place] 12,000-38,0 00 (three) Medic al 00 -60,000 times Branch unit daily with capsule meals. ursodioL 2020-0 Yes [id number] 250mg Take 1 Un you 250 mg 6-30 tablet by ity of tablet 00:00: mouth 2 00 (two) Medical times Branch daily. fenofibrate 2020-0 Yes [id number] 145mg Take 1 [facility] 145 mg 6-30 tablet by ity of tablet 00:00: mouth [place] 00 daily. Medical Branch lipase-prot 2020-0 Yes [id number] 3{capsu Take 3 [facility] ease-amylas 6-30 le} capsules ity of e 00:00: by mouth 3 [place] 12,000-38,0 00 (three) Medic al 00 -60,000 times Branch unit daily with capsule meals. ursodioL 2020-0 Yes [id number] 250mg Take 1 Un you 250 mg 6-30 tablet by ity of tablet 00:00: mouth 2 [place] 00 (two) Medical times Branch daily. fenofibrate 2020-0 Yes [id number] 145mg Take 1 [facility] 145 mg 6-30 tablet by ity of tablet 00:00: mouth [place] 00 daily. Medical Branch lipase-prot 2020-0 Yes [id number] 3{capsu Take 3 [facility] ease-amylas 6-30 le} capsules ity of e 00:00: by mouth 3 [place] 12,000-38,0 00 (three) Medic al 00 -60,000 times Branch unit daily with capsule meals. ursodioL 2020-0 Yes [id number] 250mg Take 1 Un you 250 mg 6-30 tablet by ity of tablet 00:00: mouth 2 00 (two) Medical times Branch daily. fenofibrate 2020-0 Yes [id number] 145mg Take 1 [facility] 145 mg 6-30 tablet by ity of tablet 00:00: mouth [place] 00 daily. Medical Branch lipase-prot 2020-0 Yes [id number] 3{capsu Take 3 [facility] ease-amylas 6-30 le} capsules ity of e 00:00: by mouth 3 [place] 12,000-38,0 00 (three) Medic al 00 -60,000 times Branch unit daily with capsule meals. ursodioL 2020-0 Yes [id number] 250mg Take 1 Un you 250 mg 6-30 tablet by ity of tablet 00:00: mouth 2 00 (two) Medical times Branch daily. fenofibrate 2020-0 Yes [id number] 145mg Take 1 [facility] 145 mg 6-30 tablet by ity of tablet 00:00: mouth [place] 00 daily. Medical Branch lipase-prot 2020-0 Yes [id number] 3{capsu Take 3 [facility] ease-amylas 6-30 le} capsules ity of e 00:00: by mouth 3 [place] 12,000-38,0 00 (three) Medic al 00 -60,000 times Branch unit daily with capsule meals. ursodioL 2020-0 Yes [id number] 250mg Take 1 Un you 250 mg 6-30 tablet by ity of tablet 00:00: mouth 2 (two) Medical times Branch daily. fenofibrate 2020-0 Yes [id number] 145mg Take 1 [facility] 145 mg 6-30 tablet by ity of tablet 00:00: mouth 00 daily. Medical Branch lipase-prot 2020-0 Yes [id number] 3{capsu Take 3 [facility] ease-amylas 6-30 le} capsules ity of e 00:00: by mouth 3 [place] 12,000-38,0 00 (three) Medic al 00 -60,000 times Branch unit daily with capsule meals. ursodioL 2020-0 Yes [id number] 250mg Take 1 Un you 250 mg 6-30 tablet by ity of tablet 00:00: mouth 2 (two) Medical times Branch daily. fenofibrate 2020-0 Yes [id number] 145mg Take 1 [facility] 145 mg 6-30 tablet by ity of tablet 00:00: mouth 00 daily. Medical Branch lipase-prot 2020-0 Yes [id number] 3{capsu Take 3 [facility] ease-amylas 6-30 le} capsules ity of e 00:00: by mouth 3 [place] 12,000-38,0 00 (three) Medic al 00 -60,000 times Branch unit daily with capsule meals. ursodioL 2020-0 Yes [id number] 250mg Take 1 Un you 250 mg 6-30 tablet by ity of tablet 00:00: mouth 2 (two) Medical times Branch daily. fenofibrate 2020-0 Yes [id number] 145mg Take 1 [facility] 145 mg 6-30 tablet by ity of tablet 00:00: mouth 00 daily. Medical Branch lipase-prot 2020-0 Yes [id number] 3{capsu Take 3 [facility] ease-amylas 6-30 le} capsules ity of e 00:00: by mouth 3 [place] 12,000-38,0 00 (three) Medic al 00 -60,000 times Branch unit daily with capsule meals. ursodioL 2020-0 Yes [id number] 250mg Take 1 Un you 250 mg 6-30 tablet by ity of tablet 00:00: mouth 2 00 (two) Medical times Branch daily. fenofibrate 2020-0 Yes [id number] 145mg Take 1 [facility] 145 mg 6-30 tablet by ity of tablet 00:00: mouth [place] 00 daily. Medical Branch lipase-prot 2020-0 Yes [id number] 3{capsu Take 3 [facility] ease-amylas 6-30 le} capsules ity of e 00:00: by mouth 3 [place] 12,000-38,0 00 (three) Medic al 00 -60,000 times Branch unit daily with capsule meals. ursodioL 2020-0 Yes [id number] 250mg Take 1 Un you 250 mg 6-30 tablet by ity of tablet 00:00: mouth 2 00 (two) Medical times Branch daily. fenofibrate 2020-0 Yes [id number] 145mg Take 1 [facility] 145 mg 6-30 tablet by ity of tablet 00:00: mouth [place] 00 daily. Medical Branch lipase-prot 2020-0 Yes [id number] 3{capsu Take 3 [facility] ease-amylas 6-30 le} capsules ity of e 00:00: by mouth 3 [place] 12,000-38,0 00 (three) Medic al 00 -60,000 times Branch unit daily with capsule meals. ursodioL 2020-0 Yes [id number] 250mg Take 1 Un you 250 mg 6-30 tablet by ity of tablet 00:00: mouth 2 (two) Medical times Branch daily. fenofibrate 2020-0 Yes [id number] 145mg Take 1 [facility] 145 mg 6-30 tablet by ity of tablet 00:00: mouth 00 daily. Medical Branch lipase-prot 2020-0 Yes [id number] 3{capsu Take 3 [facility] ease-amylas 6-30 le} capsules ity of e 00:00: by mouth 3 [place] 12,000-38,0 00 (three) Medic al 00 -60,000 times Branch unit daily with capsule meals. ursodioL 2020-0 Yes [id number] 250mg Take 1 Un you 250 mg 6-30 tablet by ity of tablet 00:00: mouth 2 00 (two) Medical times Branch daily. fenofibrate 2020-0 Yes [id number] 145mg Take 1 [facility] 145 mg 6-30 tablet by ity of tablet 00:00: mouth [place] 00 daily. Medical Branch lipase-prot 2020-0 Yes [id number] 3{capsu Take 3 [facility] ease-amylas 6-30 le} capsules ity of e 00:00: by mouth 3 [place] 12,000-38,0 00 (three) Medic al 00 -60,000 times Branch unit daily with capsule meals. ursodioL 2020-0 Yes [id number] 250mg Take 1 Un you 250 mg 6-30 tablet by ity of tablet 00:00: mouth 2 [place] 00 (two) Medical times Branch daily. fenofibrate 2020-0 Yes [id number] 145mg Take 1 [facility] 145 mg 6-30 tablet by ity of tablet 00:00: mouth [place] 00 daily. Medical Branch lipase-prot 2020-0 Yes [id number] 3{capsu Take 3 [facility] ease-amylas 6-30 le} capsules ity of e 00:00: by mouth 3 [place] 12,000-38,0 00 (three) Medic al 00 -60,000 times Branch unit daily with capsule meals. ursodioL 2020-0 Yes [id number] 250mg Take 1 Un you 250 mg 6-30 tablet by ity of tablet 00:00: mouth 2 [place] (two) Medical times Branch daily. fenofibrate 2020-0 Yes [id number] 145mg Take 1 [facility] 145 mg 6-30 tablet by ity of tablet 00:00: mouth [place] 00 daily. Medical Branch fenofibrate 2020-0 Yes [id number] 145mg Take 1 [facility] 145 mg 6-30 tablet by ity of tablet 00:00: mouth [place] 00 daily. Medical Branch lipase-prot 2020-0 Yes [id number] 3{capsu Take 3 [facility] ease-amylas 6-30 le} capsules ity of e 00:00: by mouth 3 [place] 12,000-38,0 00 (three) Medic al 00 -60,000 times Branch unit daily with capsule meals. ursodioL 2020-0 Yes [id number] 250mg Take 1 Un you 250 mg 6-30 tablet by ity of tablet 00:00: mouth 2 [place] 00 (two) Medical times Branch daily. lipase-prot 2020-0 Yes [id number] 3{capsu Take 3 [facility] ease-amylas 6-30 le} capsules ity of e 00:00: by mouth 3 [place] 12,000-38,0 00 (three) Medic al 00 -60,000 times Branch unit daily with capsule meals. ursodioL 2020-0 Yes [id number] 250mg Take 1 Un you 250 mg 6-30 tablet by ity of tablet 00:00: mouth 2 [place] 00 (two) Medical times Branch daily. fenofibrate 2020-0 Yes [id number] 145mg Take 1 [facility] 145 mg 6-30 tablet by ity of tablet 00:00: mouth [place] 00 daily. Medical Branch lipase-prot 2020-0 Yes [id number] 3{capsu Take 3 [facility] ease-amylas 6-30 le} capsules ity of e 00:00: by mouth 3 [place] 12,000-38,0 00 (three) Medic al 00 -60,000 times Branch unit daily with capsule meals. ursodioL 2020-0 Yes [id number] 250mg Take 1 Un you 250 mg 6-30 tablet by ity of tablet 00:00: mouth 2 00 (two) Medical times Branch daily. fenofibrate 2020-0 Yes [id number] 145mg Take 1 [facility] 145 mg 6-30 tablet by ity of tablet 00:00: mouth [place] 00 daily. Medical Branch lipase-prot 2020- Yes [id number] 3{capsu Take 3 [facility] ease-amylas 6-30 le} capsules ity of e 00:00: by mouth 3 [place] 12,000-38,0 00 (three) Medic al 00 -60,000 times Branch unit daily with capsule meals. ursodioL 0 Yes [id number] 250mg Take 1 Un you 250 mg 6-30 tablet by ity of tablet 00:00: mouth 2 [place] 00 (two) Medical times Branch daily. fenofibrate 2020-0 Yes [id number] 145mg Take 1 [facility] 145 mg 6-30 tablet by ity of tablet 00:00: mouth [place] 00 daily. Medical Branch fenofibrate 2020-0 Yes [id number] 145mg Take 1 [facility] 145 mg 6-30 tablet by ity of tablet 00:00: mouth [place] 00 daily. Medical Branch fenofibrate 2020-0 Yes [id number] 145mg Take 1 [facility] 145 mg 6-30 tablet by ity of tablet 00:00: mouth [place] 00 daily. Medical Branch lipase-prot 2020-0 Yes [id number] 3{capsu Take 3 [facility] ease-amylas 6-30 le} capsules ity of e 00:00: by mouth 3 [place] 12,000-38,0 00 (three) Medic al 00 -60,000 times Branch unit daily with capsule meals. ursodioL 2020-0 Yes [id number] 250mg Take 1 Un you 250 mg 6-30 tablet by ity of tablet 00:00: mouth 2 [place] 00 (two) Medical times Branch daily. fenofibrate 2020-0 Yes [id number] 145mg Take 1 [facility] 145 mg 6-30 tablet by ity of tablet 00:00: mouth [place] 00 daily. Medical Branch fenofibrate 2020-0 Yes [id number] 145mg Take 1 [facility] 145 mg 6-30 tablet by ity of tablet 00:00: mouth [place] 00 daily. Medical Branch fenofibrate 2020-0 Yes [id number] 145mg Take 1 [facility] 145 mg 6-30 tablet by ity of tablet 00:00: mouth [place] 00 daily. Medical Branch fenofibrate 2020-0 Yes [id number] 145mg Take 1 [facility] 145 mg 6-30 tablet by ity of tablet 00:00: mouth [place] 00 daily. Medical Branch fenofibrate 2020-0 Yes [id number] 145mg Take 1 [facility] 145 mg 6-30 tablet by ity of tablet 00:00: mouth [place] 00 daily. Medical Branch fenofibrate 2020-0 Yes [id number] 145mg Take 1 [facility] 145 mg 6-30 tablet by ity of tablet 00:00: mouth [place] 00 daily. Medical Branch fenofibrate 2020-0 Yes [id number] 145mg Take 1 [facility] 145 mg 6-30 tablet by ity of tablet 00:00: mouth [place] 00 daily. Medical Branch fenofibrate 2020-0 Yes [id number] 145mg Take 1 [facility] 145 mg 6-30 tablet by ity of tablet 00:00: mouth [place] 00 daily. Medical Branch fenofibrate 2020-0 Yes [id number] 145mg Take 1 [facility] 145 mg 6-30 tablet by ity of tablet 00:00: mouth [place] 00 daily. Medical Branch fenofibrate 2020-0 Yes [id number] 145mg Take 1 [facility] 145 mg 6-30 tablet by ity of tablet 00:00: mouth [place] 00 daily. Medical Branch fenofibrate 2020-0 Yes [id number] 145mg Take 1 [facility] 145 mg 6-30 tablet by ity of tablet 00:00: mouth [place] 00 daily. Medical Branch fenofibrate 2021-0 Yes [id number] 145mg Take 1 [facility] 145 mg 6-30 tablet by ity of tablet 00:00: mouth [place] 00 daily. Medical Branch fenofibrate Yes [id number] 145mg Take 1 [facility] 145 mg 6-30 tablet by ity of tablet 00:00: mouth [place] 00 daily. Medical Branch fenofibrate Yes [id number] 145mg Take 1 [facility] 145 mg 6-30 tablet by ity of tablet 00:00: mouth [place] 00 daily. Medical Branch fenofibrate Yes [id number] 145mg Take 1 [facility] 145 mg 6-30 tablet by ity of tablet 00:00: mouth [place] 00 daily. Medical Branch fenofibrate Yes [id number] 145mg Take 1 [facility] 145 mg 6-30 tablet by ity of tablet 00:00: mouth [place] 00 daily. Medical Branch fenofibrate Yes [id number] 145mg Take 1 [facility] 145 mg 6-30 tablet by ity of tablet 00:00: mouth [place] 00 daily. [facility] Branch fenofibrate Yes [id number] 145mg Take 1 [facility] 145 mg 6-30 tablet by ity of tablet 00:00: mouth [place] 00 daily. Medical Branch fenofibrate Yes [id number] 145mg Take 1 [facility] 145 mg 6-30 tablet by ity of tablet 00:00: mouth [place] 00 daily. [facility] Branch fenofibrate 2021- No [id number] 145mg Take 1 [facility] 145 mg 6-30 10-25 tablet by ity of tablet 00:00: 00:00 mouth [place] 00 :00 daily. Medical Branch lipase-prot 2021- No [id number] 3{capsu Take 3 [facility] ease-amylas 6-30 02- le} capsules ity of e 00:00: 00:00 by mouth 3 [place] 12,000-38,0 00 :00 (three) Medic al 00 -60,000 times Branch unit daily with capsule meals. ursodioL 2021- No [id number] 250mg Take 1 U nivers 250 mg 6-30 0206 tablet by ity of tablet 00:00: 00:00 mouth 2 [place] 00 :00 (two) Medical times Branch daily. morpHINE 2020- No 6mg 6 mg, Slow Un you injection 6 10-11 IV Push, ity of mg 22:15: 21:09 ONCE, 1 [place] 00 :00 dose, [facility] 10/11/20 at Branch 1715, STAT FENTanyl PF 2020-0 2020- No 100ug 100 mcg, Univers (SUBLIMAZE 10-11 Slow IV ity o f (PF)) 20:00: 18:53 Push, [place] injection 00 :00 ONCE, 1 Medical 100 mcg dose, [facility] 10/11/20 at 1500, Routine ondansetron 2020-0 202- [...] 15:42 ONCE, 1 [place] 00 :00 dose, [facility] 10/11/20 at Branch 1145, STAT FENTanyl PF 2020-0 2020- No 100ug 100 mcg, Univers (SUBLIMAZE 10-11 Slow IV ity o f (PF)) 16:15: 15:06 Push, [place] injection 00 :00 ONCE, 1 Medical 100 mcg dose, [facility] 10/11/20 at 1115, Routine metoclopram 2020- 202- No 10mg 10 mg, Uni vers selena HCl 10-11 Slow IV ity of (REGLAN) 16:15: 15:06 Push, [place] injection 00 :00 ONCE, 1 Medical 10 mg dose, [facility] 10/11/20 at 1115, [place] morpHINE 2020-0 202- No 4mg 4 mg, Slow Un you injection 4 10-05 IV Push, ity of mg 01:15: 00:15 ONCE, 1 [place] 00 :00 dose, [facility] 10/04/20 at Branch 2015, STAT ondansetron 2020-0 [...] dose, 10/04/20 at 1800, [place] promethazin Yes [id number] 50mg Insert 1 [facility] e 50 mg 6-22 Suppositor ity of suppository 00:00: y [place] 00 rectum Medical every 6 Branch (six) hours as needed for Nausea and Vomiting (N/V). ondansetron Yes [id number] 4mg Take 1 [facility] (ZOFRAN 6-22 tablet by ity of ODT) 4 mg 00:00: mouth [place] disintegrat 00 every 8 Medic al ing tablet (eight) Branch hours as needed for Nausea and Vomiting (N/V). promethazin Yes [id number] 50mg Insert 1 [facility] e 50 mg 6-22 Suppositor ity of suppository 00:00: y into [place] 00 rectum Medical every 6 Branch (six) hours as needed for Nausea and Vomiting (N/V). promethazin Yes [id number] 50mg Insert 1 [facility] e 50 mg 6-22 Suppositor ity of suppository 00:00: y into [place] 00 rectum Medical every 6 Branch (six) hours as needed for Nausea and Vomiting (N/V). promethazin Yes [id number] 50mg Insert 1 [facility] e 50 mg 6-22 Suppositor ity of suppository 00:00: y into [place] 00 rectum Medical every 6 Branch (six) hours as needed for Nausea and Vomiting (N/V). promethazin Yes [id number] 50mg Insert 1 [facility] e 50 mg 6-22 Suppositor ity of suppository 00:00: y into [place] 00 rectum Medical every 6 Branch (six) hours as needed for Nausea and Vomiting (N/V). promethazin Yes [id number] 50mg Insert 1 [facility] e 50 mg 6-22 Suppositor ity of suppository 00:00: y into [place] 00 rectum Medical every 6 Branch (six) hours as needed for Nausea and Vomiting (N/V). promethazin Yes [id number] 50mg Insert 1 [facility] e 50 mg 6-22 Suppositor ity of suppository 00:00: y into [place] 00 rectum Medical every 6 Branch (six) hours as needed for Nausea and Vomiting (N/V). promethazin Yes [id number] 50mg Insert 1 [facility] e 50 mg 6-22 Suppositor ity of suppository 00:00: y into [place] 00 rectum Medical every 6 Branch (six) hours as needed for Nausea and Vomiting (N/V). promethazin Yes [id number] 50mg Insert 1 [facility] e 50 mg 6-22 Suppositor ity of suppository 00:00: y into [place] 00 rectum Medical every 6 Branch (six) hours as needed for Nausea and Vomiting (N/V). promethazin Yes [id number] 50mg Insert 1 [facility] e 50 mg 6-22 Suppositor ity of suppository 00:00: y into [place] 00 rectum Medical every 6 Branch (six) hours as needed for Nausea and Vomiting (N/V). promethazin Yes [id number] 50mg Insert 1 [facility] e 50 mg 6-22 Suppositor ity of suppository 00:00: y into [place] 00 rectum Medical every 6 Branch (six) hours as needed for Nausea and Vomiting (N/V). promethazin Yes [id number] 50mg Insert 1 [facility] e 50 mg 6-22 Suppositor ity of suppository 00:00: y into [place] 00 rectum Medical every 6 Branch (six) hours as needed for Nausea and Vomiting (N/V). promethazin Yes [id number] 50mg Insert 1 [facility] e 50 mg 6-22 Suppositor ity of suppository 00:00: y into [place] 00 rectum Medical every 6 Branch (six) hours as needed for Nausea and Vomiting (N/V). promethazin Yes [id number] 50mg Insert 1 [facility] e 50 mg 6-22 Suppositor ity of suppository 00:00: y into [place] 00 rectum Medical every 6 Branch (six) hours as needed for Nausea and Vomiting (N/V). promethazin Yes [id number] 50mg Insert 1 [facility] e 50 mg 6-22 Suppositor ity of suppository 00:00: y into [place] 00 rectum Medical every 6 Branch (six) hours as needed for Nausea and Vomiting (N/V). promethazin Yes [id number] 50mg Insert 1 [facility] e 50 mg 6-22 Suppositor ity of suppository 00:00: y into [place] 00 rectum Medical every 6 Branch (six) hours as needed for Nausea and Vomiting (N/V). promethazin Yes [id number] 50mg Insert 1 [facility] e 50 mg 6-22 Suppositor ity of suppository 00:00: y into [place] 00 rectum Medical every 6 Branch (six) hours as needed for Nausea and Vomiting (N/V). promethazin Yes [id number] 50mg Insert 1 [facility] e 50 mg 6-22 Suppositor ity of suppository 00:00: y into [place] 00 rectum Medical every 6 Branch (six) hours as needed for Nausea and Vomiting (N/V). promethazin Yes [id number] 50mg Insert 1 [facility] e 50 mg 6-22 Suppositor ity of suppository 00:00: y into [place] 00 rectum Medical every 6 Branch (six) hours as needed for Nausea and Vomiting (N/V). promethazin Yes [id number] 50mg Insert 1 [facility] e 50 mg 6-22 Suppositor ity of suppository 00:00: y into [place] 00 rectum Medical every 6 Branch (six) hours as needed for Nausea and Vomiting (N/V). promethazin Yes [id number] 50mg Insert 1 [facility] e 50 mg 10-04 Suppositor ity of suppository 00:00: y into [place] 00 rectum Medical every 6 Branch (six) hours as needed for Nausea and Vomiting (N/V). promethazin 2- No [id number] 50mg Insert 1 [facility] e 50 mg -04-15 Suppositor ity o f suppository 00:00: 00:00 y into [place] 00 :00 rectum Medical every 6 Branch (six) hours as needed for Nausea and Vomiting (N/V). ondansetron 2020- No [id number] 4mg Take 1 [facility] (ZOFRAN 10-0430 tablet [...] MG 6-04 le} 300 MG 00:00: 00 diazePAM 2020-0 [...] as needed for Anxiety. pancrelipas 2021- No [id number]{ Take [address] [facility], -09 09- lipase} capsules [facility] Lip-Prot-Am 00:00: 23:59 (72,000 Me dical yl, (CREON) 00 :00 units of Cent er 24,000-76,0 lipase 00 -120,000 total) by unit CpDR mouth 3 capsule (three) times daily with meals. ursodioL 2021- No 500mg Q.5D Take 1 [facility] (ACTIGALL[facility] -09 09- tablet [facility] 500 MG 00:00: 23:59 (500 mg Medical tablet 00 :00 total) by Center mouth 2 (two) times daily. pancrelipas 2021- No [id number]{ Take [address] [facility], 5-28 05-28 [...] 2 (two) times daily. pancrelipas 2021- No [id number]{ Take [address] [facility], 5- 05-28 lipase} capsules [facility] Lip[facility]Prot-[facility] 00:00: 23:59 [...] 2 (two) times daily. pancrelipas 2021- No [id number]{ Take [address] [facility], - 05-28 lipase} capsules [facility] Lip-Prot-[facility] 00:00: 23:59 (72,000 Me dical yl, (CREON) 00 :00 units of Cent er 24,000-76,0 lipase 00 -120,000 total) by unit CpDR mouth 3 capsule (three) times daily with meals. ursodioL 2020-2021- No 500mg Q.5D Take [facility] ([facility] 5-28 05-28 [facility] 500 MG 00:00: 23:59 (500 mg Medical tablet 00 :00 total) by Center mouth 2 (two) times daily. pancrelipas 2020-2021- No [id number]{ Take [address] [facility], 5-28 05-28 [...] 2 (two) times daily. pancrelipas 2021- No [id number]{ Take [address] [facility], 09-09 lipase} [...] :00 1 dose, Medical 50 mcg Fri [place] 08/05/20 at 0930, Routine ondansetron 2020-0 2020- No 4mg 4 mg, [facility] ers (ZOFRAN-ODT 08-05 04-23 Oral, ity of ) 14:30: 13:36 ONCE, 1 [place] disintegrat 00 :00 dose, Fri Med ical ing tablet 08/05/20 at [facility] 4 mg 0930, Routine tiZANidine 2020-0 Yes [...] MG 00:00: mouth Medical tablet 00 nightly. [place] traZODone 0 Yes 100mg Take 100 Uni vers 100 mg 4-05 mg by ity of tablet 13:30: mouth at [place] [address] bedtime. Medical Branch traZODone 0 Yes 100mg Take 100 Uni vers 100 mg 4-05 mg by ity of tablet 13:30: mouth at [place] [address] bedtime. Medical Branch traZODone 0 Yes 100mg Take 100 Uni vers 100 mg 4-05 mg by ity of tablet 13:30: mouth at [place] [address] bedtime. Medical Branch [facility]am[facility]olo [facility] ne 4-05 Starting ity of acetonide 12:07: Sat07/18/20 [place] (KE[place]LOG[place] 00 at 0707, Medica l injection [...] ed, Routine, Intra-op triamcinolo 2020- [facility] Starting ity of acetonide 12:07: 15:30 [facility] 07/18/20 [place] (KENALOG) 00 :22 at 0707, Medica l injection Until [facility] 07/18/20 at 1030, Routine, Intra-op iohexoL 2020- No PRN, Univers (OMNIPAQUE 4-05 04-05 Starting ity of 300-50 mL)) 12:07: 15:30 [facility] 07/18/20 [place] injection 00 :22 at 0707, Medica l Until [facility] 07/18/20 at 1030, Routine, Intra-op lidocaine 2020- No PRN, Univers 1% 4-05 04-05 Starting ity of (XYLOCAINE) 12:07: 15:30 [facility] 07/18/20 [place] 10 mg/mL (1 00 :22 [...] tablet 22 :00 daily. Medical Branch chlordiazeP 2020-0 2020- No 10mg Take 10 mg Univers [...] of 400 mg 11:42: 00:00 mouth at [place] tablet 27 :00 bedtime. Medical Branch tiZANidine 2020- No 4mg Take 4 mg U nivers 4 mg 4-05 04-05 by mouth 2 ity of capsule 11:42: 00:00 (two) [place] 27 :00 times Medical daily. Branch meloxicam [...] Yes 100mg 100 mg, Unive rs (COZAAR) 3-26 Oral, ity of tablet 100 14:00: DAILY, [place] mg 00 First dose Medical on Sat [place] 07/08/20 at 0900, Until Discontinu ed, Routine ondansetron 2020- No 4mg 4 mg, Slow [facility] (ZOFRAN 07-08 IV Push, ity of (PF)) 03:15: 02:29 ONCE, 1 [place] injection 4 00 :00 dose, [place] Med ical mg 07/07/20 at Branch 2214, [place] morpHINE 0 2020- No 4mg 4 mg, Slow Un you injection 4 07-08 IV Push, ity of mg 03:15: 02:28 ONCE, 1 00 :00 dose, [facility] 07/07/20 at Branch 221, STAT morpHINE 2020-2020- No 4mg 4 mg, Slow Un you injection 4 07-08 IV Push, ity of mg 01:45: 01:05 ONCE, 1 00 :00 dose, [place] [facility] 07/07/20 at Branch 2044, STAT iohexol 2020-2020- No [id number] 120mL 120 mL, Univers (OMNIPAQUE 07-08 Intravenou it y of 350 01:00: 00:55 s, ONCE, 1 [place] BULK-150 00 :00 dose, [place] Medica l mL) 07/07/20 at [place] injection 2000, 120 mL Routine NaCl 0.9% 2020- No 1000mL at 999 Uni vers (NS) bolus 07-08 mL/hr, ity of infusion 01:00: 02:24 1,000 mL, [place] as 1,000 mL 00 :00 IV Medical Infusion, [place] ONCE, 1 dose, [place] 07/07/20 at 1999, STAT ondansetron 2020- No 4mg 4 mg, Slow [facility] (ZOFRAN 07-08 IV Push, ity of (PF)) 01:00: 00:25 ONCE, 1 [place] injection 4 00 :00 dose, [place] Med ical mg 07/07/20 at Branch 1999, [place] ondansetron 2020-0 Yes [id number] 4mg Take 1 [facility] (ZOFRAN 3-25 tablet by ity of ODT) 4 mg 00:00: mouth [place] disintegrat 00 every 8 Medic al ing tablet (eight) Branch hours as needed for Nausea and Vomiting (N/V). ondansetron 2021-0 Yes [id number] 4mg Take 1 [facility] (ZOFRAN 3-25 tablet by ity of ODT) 4 mg 00:00: mouth [place] disintegrat 00 every 8 Medic al ing tablet (eight) Branch hours as needed for Nausea and Vomiting (N/V). ondansetron 2021-0 Yes [id number] 4mg Take 1 [facility] (ZOFRAN 3-25 tablet by ity of ODT) 4 mg 00:00: mouth [place] disintegrat 00 every 8 Medic al ing tablet (eight) Branch hours as needed for Nausea and Vomiting (N/V). ondansetron 2021-0 Yes [id number] 4mg Take 1 [facility] (ZOFRAN 3-25 tablet by ity of ODT) 4 mg 00:00: mouth [place] disintegrat 00 every 8 Medic al ing tablet (eight) Branch hours as needed for Nausea and Vomiting (N/V). ondansetron 2021-0 Yes [id number] 4mg Take 1 Univers (ZOFRAN 3-25 tablet by ity of ODT) 4 mg 00:00: mouth [place] disintegrat 00 every 8 Medic al ing tablet (eight) Branch hours as needed for Nausea and Vomiting (N/V). ondansetron 2021-0 Yes [id number] 4mg Take 1 Univers (ZOFRAN 3-25 tablet by ity of ODT) 4 mg 00:00: mouth [place] disintegrat 00 every 8 Medic al ing tablet (eight) Branch hours as needed for Nausea and Vomiting (N/V). ondansetron 2021-0 Yes [id number] 4mg Take 1 Univers (ZOFRAN 3-25 tablet by ity of ODT) 4 mg 00:00: mouth [place] disintegrat 00 every 8 Medic al ing tablet (eight) Branch hours as needed for Nausea and Vomiting (N/V). ondansetron 2021-0 Yes [id number] 4mg Take 1 Univers (ZOFRAN 3-25 tablet by ity of ODT) 4 mg 00:00: mouth [place] disintegrat 00 every 8 Medic al ing tablet (eight) Branch hours as needed for Nausea and Vomiting (N/V). ondansetron 2021-0 Yes [id number] 4mg Take 1 Univers (ZOFRAN 3-25 tablet by ity of ODT) 4 mg 00:00: mouth [place] disintegrat 00 every 8 Medic al ing tablet (eight) Branch hours as needed for Nausea and Vomiting (N/V). ondansetron 2021-0 Yes [id number] 4mg Take 1 Univers (ZOFRAN 3-25 tablet by ity of ODT) 4 mg 00:00: mouth [place] disintegrat 00 every 8 Medic al ing tablet (eight) Branch hours as needed for Nausea and Vomiting (N/V). ondansetron 2021-0 Yes [id number] 4mg Take 1 Univers (ZOFRAN 3-25 tablet by ity of ODT) 4 mg 00:00: mouth [place] disintegrat 00 every 8 Medic al ing tablet (eight) Branch hours as needed for Nausea and Vomiting (N/V). ondansetron 2021-0 Yes [id number] 4mg Take 1 Univers (ZOFRAN 3-25 tablet by ity of ODT) 4 mg 00:00: mouth [place] disintegrat 00 every 8 Medic al ing tablet (eight) Branch hours as needed for Nausea and Vomiting (N/V). ondansetron 2021-0 Yes [id number] 4mg Take 1 Univers (ZOFRAN 3-25 tablet by ity of ODT) 4 mg 00:00: mouth [place] disintegrat 00 every 8 Medic al ing tablet (eight) Branch hours as needed for Nausea and Vomiting (N/V). ondansetron 2021-0 Yes [id number] 4mg Take 1 Univers (ZOFRAN 3-25 tablet by ity of ODT) 4 mg 00:00: mouth [place] disintegrat 00 every 8 Medic al ing tablet (eight) Branch hours as needed for Nausea and Vomiting (N/V). ondansetron 2021-0 Yes [id number] 4mg Take 1 Univers (ZOFRAN 3-25 tablet by ity of ODT) 4 mg 00:00: mouth [place] disintegrat 00 every 8 Medic al ing tablet (eight) Branch hours as needed for Nausea and Vomiting (N/V). ondansetron 2021-0 Yes [id number] 4mg Take 1 Univers (ZOFRAN 3-25 tablet by ity of ODT) 4 mg 00:00: mouth [place] disintegrat 00 every 8 Medic al ing tablet (eight) Branch hours as needed for Nausea and Vomiting (N/V). ondansetron 2020-0 Yes [id number] 4mg Take 1 Univers (ZOFRAN 3-25 tablet by ity of ODT) 4 mg 00:00: mouth [place] disintegrat 00 every 8 Medic al ing tablet (eight) Branch hours as needed for Nausea and Vomiting (N/V). ondansetron 2020-0 Yes [id number] 4mg Take 1 Univers (ZOFRAN 3-25 tablet by ity of ODT) 4 mg 00:00: mouth [place] disintegrat 00 every 8 Medic al ing tablet (eight) Branch hours as needed for Nausea and Vomiting (N/V). ondansetron 0 Yes [id number] 4mg Take 1 Univers (ZOFRAN 3-25 tablet by ity of ODT) 4 mg 00:00: mouth [place] disintegrat 00 every 8 Medic al ing tablet (eight) Branch hours as needed for Nausea and Vomiting (N/V). ondansetron 2020- No [id number] 4mg Take 1 Univers (ZOFRAN 3-25 12-06 [...] tablet 13:47: daily. [place] Medical Branch carvediloL 0 Yes 12.5mg Take [...] by ity of tablet 13:47: mouth 2 [place] [address] (two) Medical times Branch daily. traZODone 2020-0 Yes 100mg Take 100 Uni vers 100 mg 3-22 mg by ity of tablet 13:47: mouth at [place] [address] bedtime. Medical Branch ARIPiprazol 2020-0 Yes 10mg Take 10 mg Univers e 10 mg 3-22 by mouth ity of tablet 13:47: daily. [place] [address] Medical Branch carvediloL 2020-0 Yes 12.5mg Take 12.5 Univers 12.5 mg 3-22 mg by ity of tablet 13:47: mouth 2 [place] [address] (two) Medical times [place] daily with meals. lactated 2020-0 Yes 1000mL at 100 Unive rs ringers IV 3-22 mL/hr, ity of infusion 13:15: 1,000 mL, [place] 1,000 mL 00 IV Medical Infusion, Branch CONTINUOUS , Starting Sat07/04/20 at 0815, Until Discontinu ed, Routine, PACU FENTanyl PF 2020-0 Yes 25ug 25 mcg, Uni vers (SUBLIMAZE 3-22 Slow IV ity of (PF)) 13:10: Push, [place] injection 11 Q5MIN PRN, Medi brandy 25 [...] ed, Routine, Pain (scale 4-6), PACU ondansetron 2020-0 Yes 4mg 4 mg, Slow [...] 42 (three) Medical times Branch daily. QUEtiapine Yes [...] mouth 2 [place] 42 (two) Medical times [place] daily. ondansetron Yes 4mg 4 mg, Slow Univers (ZOFRAN 3-08 IV Push, ity of (PF)) 16:19: PRN, 1 [place] injection 4 59 dose, Medical mg Starting Branch [facility] 06/20/20 at 1019, Until Discontinu ed, Routine, [...] 3-08 Starting ity of free) 14:10: Sat06/20/20 [place] (SENSORCAIN 00 at 0810, Medi brandy E [...] [place] 00 :42 PROCEDURE, Medical Starting Branch [facility] 06/20/20 at 0805, Until Sat06/20/20 at 0812, [...] 3 it y of capsule 16:05: (three) [place] 19 times Medical daily. Branch chlordiazeP 0 Yes 10mg Take 10 mg Univers OXIDE 10 mg 3-05 by mouth 3 it y of capsule 16:05: (three) [place] 19 times Medical daily. Branch chlordiazeP 0 Yes 10mg Take 10 mg Univers OXIDE 10 mg 3-05 by mouth 3 it y of capsule 16:05: (three) [place] 19 times Medical daily. Branch butalbital- 2020- [...] dose, 05/06/20 at 1545, [place] butalbital- Yes [id number] 1{tbl} Take 1 Univers acetaminoph 1-22 tablet by ity of en-caff 00:00: mouth [place] 50-325-40 00 every 6 Medical mg tablet (six) Branch hours as needed for Pain (scale 7-10) or Other (headache) . butalbital- Yes [id number] 1{tbl} Take 1 Univers acetaminoph 1-22 tablet by ity of en-caff 00:00: mouth [place] 50-325-40 00 every 6 Medical mg tablet (six) Branch hours as needed for Pain (scale 7-10) or Other (headache) . butalbital- Yes [id number] 1{tbl} Take 1 Univers acetaminoph 1-22 tablet by ity of en-caff 00:00: mouth [place] 50-325-40 00 every 6 Medical mg tablet (six) Branch hours as needed for Pain (scale 7-10) or Other (headache) . butalbital- Yes [id number] 1{tbl} Take 1 [facility] acetaminoph 1-22 tablet by ity of en-caff 00:00: mouth [place] 50-325-40 00 every 6 Medical mg tablet (six) Branch hours as needed for Pain (scale 7-10) or Other (headache) . butalbital- Yes [id number] 1{tbl} Take 1 Univers acetaminoph 1-22 tablet by ity of en-caff 00:00: mouth [place] 50-325-40 00 every 6 Medical mg tablet (six) Branch hours as needed for Pain (scale 7-10) or Other (headache) . butalbital- Yes [id number] 1{tbl} Take 1 [facility] acetaminoph 1-22 tablet by ity of en-caff 00:00: mouth [place] 50-325-40 00 every 6 Medical mg tablet (six) Branch hours as needed for Pain (scale 7-10) or Other (headache) . butalbital- Yes [id number] 1{tbl} Take 1 [facility] acetaminoph 1-22 tablet by ity of en-caff 00:00: mouth [place] 50-325-40 00 every 6 Medical mg tablet (six) Branch hours as needed for Pain (scale 7-10) or Other (headache) . butalbital- Yes [id number] 1{tbl} Take 1 Univers acetaminoph 1-22 tablet by ity of en-caff 00:00: mouth [place] 50-325-40 00 every 6 Medical mg tablet (six) Branch hours as needed for Pain (scale 7-10) or Other (headache) . butalbital- Yes [id number] 1{tbl} Take 1 [facility] acetaminoph 1-22 tablet by ity of en-caff 00:00: mouth [place] 50-325-40 00 every 6 Medical mg tablet (six) Branch hours as needed for Pain (scale 7-10) or Other (headache) . butalbital- Yes [id number] 1{tbl} Take 1 [facility] acetaminoph 1-22 tablet by ity of en-caff 00:00: mouth [place] 50-325-40 00 every 6 Medical mg tablet (six) Branch hours as needed for Pain (scale 7-10) or Other (headache) . butalbital- Yes [id number] 1{tbl} Take 1 [facility] acetaminoph 1-22 tablet by ity of en-caff 00:00: mouth [place] 50-325-40 00 every 6 Medical mg tablet (six) Branch hours as needed for Pain (scale 7-10) or Other (headache) . butalbital- Yes [id number] 1{tbl} Take 1 [facility] acetaminoph 1-22 tablet by ity of en-caff 00:00: mouth [place] 50-325-40 00 every 6 Medical mg tablet (six) Branch hours as needed for Pain (scale 7-10) or Other (headache) . butalbital- Yes [id number] 1{tbl} Take 1 Univers acetaminoph 1-22 tablet by ity of en-caff 00:00: mouth [place] 50-325-40 00 every 6 Medical mg tablet (six) Branch hours as needed for Pain (scale 7-10) or Other (headache) . butalbital- 2020- No [id number] 1{tbl} Take 1 Univers acetaminoph 1-22 04-05 tablet by it y of en-caff 00:00: 00:00 mouth [place] 50-325-40 00 :00 every 6 Medical mg tablet (six) Branch hours as needed for Pain (scale 7-10) or Other (headache) . butalbital- 2020- No [id number] 1{tbl} Take 1 Univers acetaminoph 1-22 04-05 [...] 1 Medical 75 mcg dose, Sat Branch 12/12/20 at 0245, Routine erythromyci 2019-04 2020- No [...] ity of mg 06:15: 05:09 ONCE, 1 00 :00 dose, [facility] Medical 03/26/20 Branch at 0015, STAT pantoprazol [...] ity of mg 04:45: 03:40 ONCE, 1 00 :00 dose, Fri Medical 03/25/20 Branch at 2245, STAT traMADoL 2019- Yes [id number] 50mg Take 1 Univers (ULTRAM) [...] s: acute pain erythromyci 2019-04 2020- No [id number] .5[in_u Place 0.5 Univers n 5 mg/gram 05-27 [id number] s] Inches in ity of (0.5 %) [...] Branch at 0845, Routine amLODIPine 2019-04 Yes [id number] 10mg Take 1 [facility] 10 mg 0-26 tablet by ity of tablet 00:00: mouth [place] 00 daily. Medical Branch hydrALAZINE 2019-04 Yes [id number] 50mg Take 1 [facility] 50 mg 0-26 tablet by ity of tablet 00:00: mouth [place] 00 every 8 Medical (eight) Branch hours. aspirin 81 2019-04 Yes [id number] 81mg Take 1 Univers mg chewable 0-26 tablet by ity of tablet 00:00: mouth [place] 00 daily. Medical Branch amLODIPine 2019-04 Yes [id number] 10mg Take 1 [facility] 10 mg 0-26 tablet by ity of tablet 00:00: mouth [place] 00 daily. Medical Branch hydrALAZINE 2019-04 Yes [id number] 50mg Take 1 [facility] 50 mg 0-26 tablet by ity of tablet 00:00: mouth [place] 00 every 8 Medical (eight) Branch hours. aspirin 81 2019-04 Yes [id number] 81mg Take 1 [facility] mg chewable 0-26 tablet by ity of tablet 00:00: mouth [place] 00 daily. Medical Branch amLODIPine 2019-04 Yes [id number] 10mg Take 1 [facility] 10 mg 0-26 tablet by ity of tablet 00:00: mouth [place] 00 daily. Medical Branch hydrALAZINE 2019-04 Yes [id number] 50mg Take 1 [facility] 50 mg 0-26 tablet by ity of tablet 00:00: mouth [place] 00 every 8 Medical (eight) Branch hours. aspirin 81 2019- Yes [id number] 81mg Take 1 [facility] mg chewable 0-26 tablet by ity of tablet 00:00: mouth [place] 00 daily. Medical Branch amLODIPine 2019- Yes [id number] 10mg Take 1 [facility] 10 mg 0-26 tablet by ity of tablet 00:00: mouth [place] 00 daily. Medical Branch hydrALAZINE 2019- Yes [id number] 50mg Take 1 [facility] 50 mg 0-26 tablet by ity of tablet 00:00: mouth [place] 00 every 8 Medical (eight) Branch hours. aspirin 81 2019-04 Yes [id number] 81mg Take 1 [facility] mg chewable 0-26 tablet by ity of tablet 00:00: mouth [place] 00 daily. Medical Branch amLODIPine 2019-04 Yes [id number] 10mg Take 1 [facility] 10 mg 0-26 tablet by ity of tablet 00:00: mouth [place] 00 daily. Medical Branch hydrALAZINE 2019- Yes [id number] 50mg Take 1 [facility] 50 mg 0-26 tablet by ity of tablet 00:00: mouth [place] 00 every 8 Medical (eight) Branch hours. aspirin 81 2019-04 Yes [id number] 81mg Take 1 [facility] mg chewable 0-26 tablet by ity of tablet 00:00: mouth [place] 00 daily. Medical Branch amLODIPine 2019- Yes [id number] 10mg Take 1 [facility] 10 mg 0-26 tablet by ity of tablet 00:00: mouth [place] 00 daily. Medical Branch hydrALAZINE 2019- Yes [id number] 50mg Take 1 [facility] 50 mg 0-26 tablet by ity of tablet 00:00: mouth [place] 00 every 8 Medical (eight) Branch hours. aspirin 81 2019-1 Yes [id number] 81mg Take 1 [facility] mg chewable 0-26 tablet by ity of tablet 00:00: mouth [place] 00 daily. Medical Branch amLODIPine 2019- Yes [id number] 10mg Take 1 [facility] 10 mg 0-26 tablet by ity of tablet 00:00: mouth [place] 00 daily. Medical Branch hydrALAZINE 2019- Yes [id number] 50mg Take 1 [facility] 50 mg 0-26 tablet by ity of tablet 00:00: mouth [place] 00 every 8 Medical (eight) Branch hours. aspirin 81 2019-1 Yes [id number] 81mg Take 1 [facility] mg chewable 0-26 tablet by ity of tablet 00:00: mouth [place] 00 daily. Medical Branch amLODIPine 2019- Yes [id number] 10mg Take 1 Univers 10 mg 0-26 tablet by ity of tablet 00:00: mouth [place] 00 daily. Medical Branch hydrALAZINE 2019- Yes [id number] 50mg Take 1 Univers 50 mg 0-26 tablet by ity of tablet 00:00: mouth [place] 00 every 8 Medical (eight) Branch hours. aspirin 81 2019- Yes [id number] 81mg Take 1 [facility] mg chewable 0-26 tablet by ity of tablet 00:00: mouth [place] 00 daily. Medical Branch amLODIPine 2019-04 Yes [id number] 10mg Take 1 Univers 10 mg 0-26 tablet by ity of tablet 00:00: mouth [place] 00 daily. Medical Branch hydrALAZINE 2019- Yes [id number] 50mg Take 1 Univers 50 mg 0-26 tablet by ity of tablet 00:00: mouth [place] 00 every 8 Medical (eight) Branch hours. aspirin 81 2019-04 Yes [id number] 81mg Take 1 [facility] mg chewable 0-26 tablet by ity of tablet 00:00: mouth [place] 00 daily. Medical Branch amLODIPine 2019-04 Yes [id number] 10mg Take 1 [facility] 10 mg 0-26 tablet by ity of tablet 00:00: mouth [place] 00 daily. Medical Branch hydrALAZINE 2019- Yes [id number] 50mg Take 1 Univers 50 mg 0-26 tablet by ity of tablet 00:00: mouth [place] 00 every 8 Medical (eight) Branch hours. aspirin 81 2019- Yes [id number] 81mg Take 1 [facility] mg chewable 0-26 tablet by ity of tablet 00:00: mouth [place] 00 daily. Medical Branch amLODIPine 2019- Yes [id number] 10mg Take 1 [facility] 10 mg 0-26 tablet by ity of tablet 00:00: mouth [place] 00 daily. Medical Branch hydrALAZINE 2019- Yes [id number] 50mg Take 1 [facility] 50 mg 0-26 tablet by ity of tablet 00:00: mouth [place] 00 every 8 Medical (eight) Branch hours. aspirin 81 2019- Yes [id number] 81mg Take 1 [facility] mg chewable 0-26 tablet by ity of tablet 00:00: mouth [place] 00 daily. Medical Branch amLODIPine 2019- Yes [id number] 10mg Take 1 [facility] 10 mg 0-26 tablet by ity of tablet 00:00: mouth [place] 00 daily. Medical Branch hydrALAZINE 2019- Yes [id number] 50mg Take 1 [facility] 50 mg 0-26 tablet by ity of tablet 00:00: mouth [place] 00 every 8 Medical (eight) Branch hours. aspirin 81 2019-04 Yes [id number] 81mg Take 1 [facility] mg chewable 0-26 tablet by ity of tablet 00:00: mouth [place] 00 daily. Medical Branch amLODIPine 2019-04 Yes [id number] 10mg Take 1 [facility] 10 mg 0-26 tablet by ity of tablet 00:00: mouth [place] 00 daily. Medical Branch hydrALAZINE 2019-04 Yes [id number] 50mg Take 1 [facility] 50 mg 0-26 tablet by ity of tablet 00:00: mouth [place] 00 every 8 Medical (eight) Branch hours. aspirin 81 2019-04 Yes [id number] 81mg Take 1 [facility] mg chewable 0-26 tablet by ity of tablet 00:00: mouth [place] 00 daily. Medical Branch amLODIPine 2019-04 Yes [id number] 10mg Take 1 [facility] 10 mg 0-26 tablet by ity of tablet 00:00: mouth [place] 00 daily. Medical Branch hydrALAZINE 2019-04 Yes [id number] 50mg Take 1 Univers 50 mg 0-26 tablet by ity of tablet 00:00: mouth [place] 00 every 8 Medical (eight) Branch hours. aspirin 81 2019-04 Yes [id number] 81mg Take 1 Univers mg chewable 0-26 tablet by ity of tablet 00:00: mouth [place] 00 daily. Medical Branch amLODIPine 2019- Yes [id number] 10mg Take 1 [facility] 10 mg 0-26 tablet by ity of tablet 00:00: mouth [place] 00 daily. Medical Branch hydrALAZINE 2019-04 Yes [id number] 50mg Take 1 [facility] 50 mg 0-26 tablet by ity of tablet 00:00: mouth [place] 00 every 8 Medical (eight) Branch hours. aspirin 81 2019-04 Yes [id number] 81mg Take 1 [facility] mg chewable 0-26 tablet by ity of tablet 00:00: mouth [place] 00 daily. Medical Branch amLODIPine 2019-04 Yes [id number] 10mg Take 1 [facility] 10 mg 0-26 tablet by ity of tablet 00:00: mouth [place] 00 daily. Medical Branch hydrALAZINE 2019-04 Yes [id number] 50mg Take 1 [facility] 50 mg 0-26 tablet by ity of tablet 00:00: mouth [place] 00 every 8 Medical (eight) Branch hours. aspirin 81 2019-04 Yes [id number] 81mg Take 1 Univers mg chewable 0-26 tablet by ity of tablet 00:00: mouth [place] 00 daily. Medical Branch amLODIPine 2019-04 Yes [id number] 10mg Take 1 [facility] 10 mg 0-26 tablet by ity of tablet 00:00: mouth [place] 00 daily. Medical Branch hydrALAZINE 2019-04 Yes [id number] 50mg Take 1 [facility] 50 mg 0-26 tablet by ity of tablet 00:00: mouth [place] 00 every 8 Medical (eight) Branch hours. aspirin 81 2019-04 Yes [id number] 81mg Take 1 Univers mg chewable 0-26 tablet by ity of tablet 00:00: mouth [place] 00 daily. Medical Branch amLODIPine 2019-04 Yes [id number] 10mg Take 1 [facility] 10 mg 0-26 tablet by ity of tablet 00:00: mouth [place] 00 daily. Medical Branch hydrALAZINE 2019-04 Yes [id number] 50mg Take 1 [facility] 50 mg 0-26 tablet by ity of tablet 00:00: mouth [place] 00 every 8 Medical (eight) Branch hours. aspirin 81 2019-04 Yes [id number] 81mg Take 1 Univers mg chewable 0-26 tablet by ity of tablet 00:00: mouth [place] 00 daily. Medical Branch amLODIPine 2019-04- No [id number] 10mg Take 1 Univers 10 mg 0-26 04-05 tablet by ity of tablet 00:00: 00:00 mouth [place] 00 :00 daily. Medical Branch hydrALAZINE 2019-04- No [id number] 50mg Take 1 Univers 50 mg 0-26 04-05 tablet by ity of tablet 00:00: 00:00 mouth [place] 00 :00 every 8 Medical (eight) Branch hours. aspirin 81 2019-04- No [id number] 81mg Take 1 Univers mg chewable 0-26 04-05 tablet by it y of tablet 00:00: 00:00 mouth [place] 00 :00 daily. Medical Branch amLODIPine 2019-04- No [id number] 10mg Take 1 Univers 10 mg 0-26 04-05 tablet by ity of tablet 00:00: 00:00 mouth [place] 00 :00 daily. Medical Branch hydrALAZINE 2019-04- No [id number] 50mg Take 1 Univers 50 mg 0-26 04-05 tablet by ity of tablet 00:00: 00:00 mouth [place] 00 :00 every 8 Medical (eight) Branch hours. aspirin 81 2019-04- No [id number] 81mg Take 1 Univers mg chewable 0-26 [...] dical 00 -60,000 on Fri Branch unit 10/23/20 capsule 3 at 0900, capsule Until Discontinu ed, Routine ondansetron 2019-04 2020- No 4mg 4 mg, Univ ers (ZOFRAN) 0-03 02- Oral, ity of tablet 4 mg 22:30: 22:42 ONCE, 1 [place] :[place] dose, [facility] 02/04/20 Branch at 1730, Routine ondansetron 2019-04 Yes 4mg 4 mg, Unive rs (ZOFRAN) 0- Oral, ity of tablet 4 mg 21:25: Q6HPRN, [place] 39 Starting Medical [facility] 02/04/20 at 1625, Until Discontinu ed, Routine, Nausea and Vomiting (N/V) ondansetron 2019-04 2020- No 4mg 4 mg, Slow Univers (ZOFRAN 002-03 IV Push, ity of (PF)) 15:15: 21:26 Q8HPRN, [place] injection 4 54 :52 Starting Medi brandy mg [facility] 02/04/20 at 1015, Until [facility] 02/04/20 at 1626, Routine, Nausea and Vomiting (N/V) LORazepam 2019-04- No 1mg 1 mg, Univer s (ATIVAN) 002-03 Oral, ity of tablet 1 mg 14:30: 23:16 ONCE, 1 [place] 00 :[place] dose, [facility] 02/04/20 Branch at 0930, Routine enoxaparin 2019-04 Yes 40mg 40 mg, Unive rs (LOVENOX) 0 Subcutaneo ity of injection 14:00: [place], DAILY, [place] 40 mg 00 First dose Medical on [facility] 02/04/20 at 0900, Until Discontinu ed, Routine divalproex 2019-04 Yes 500mg 500 mg, Uni vers (DEPAKOTE) 0 Oral, ity of EC tablet 14:00: DAILY, [place] 500 mg 00 First dose Medical on [facility] 02/04/20 at 0900, Until Discontinu ed, Routine pantoprazol 2019-04 Yes 40mg 40 mg, Univ ers e 0-22 Oral, BID, ity of (PROTONIX) 13:00: First dose [place] EC tablet 00 on [facility] 40 mg 02/04/20 Branch at 0800, [...] 03:22: Q8HPRN, [place] mg 09 Starting Medical [facility] Branch 02/03/20 at 2222, Until Discontinu [...] BIDPRN, [place] mg 06 Starting Medical [facility] Branch 02/03/20 at 2101, Until Discontinu ed, Routine, Constipati on acetaminoph 2019-04 Yes 650mg 650 mg, Un you en 0-22 Oral, ity of (TYLENOL) 01:58: Q8HPRN, [place] tablet 650 47 Starting Medic al mg Sat Branch 02/03/20 at 2058, Until Discontinu ed, Routine, Pain (scale 1-3) ondansetron 2019-04- No 4mg 4 mg, Univ ers (ZOFRAN) 0-22 10-22 Oral, ity of tablet 4 mg 01:52: 21:19 Q8HPRN, [place] 29 :27 Starting Medical [facility] Branch 02/03/20 at 205, Until [place] 02/04/20 at 1619, Routine, Nausea and Vomiting (N/V) sennosides 2019-04 Yes 8.6mg 8.6 mg, Uni vers (SENOKOT) 0-21 Oral, ity of tablet 8.6 16:30: DAILY, [place] mg 00 First dose Medical on Sat Branch 02/03/20 at 1130, Until Discontinu ed, Routine magnesium 2019-04 Yes 400mg 400 mg, Univ ers oxide 0- Oral, ity of (MAG-OX 16:30: DAILY, [place] 400) tablet 00 First dose Me dical 400 mg on Sat02/03/20 at 1130, Until Discontinu ed, Routine docusate 2019-04- No 100mg 100 mg, Univ ers (COLACE) 002-03 Oral, ity of capsule 100 16:30: 02:14 DAILY, [place] mg 00 :35 First dose Medical on Sat [place] 02/03/20 at 1130, Until Discontinu ed, Routine lactulose 2019-04- No 15mL 15 mL, Unive rs (CEPHULAC) 002-02 Oral, QID, it y of solution 15 03:30: 21:01 First dose [place] mL 00 :02 on [facility] 02/02/20 Branch at 2230, Until Discontinu ed, Routine amLODIPine 2019-04 Yes 10mg 10 mg, Unive rs (NORVASC) 0-20 Oral, ity of tablet 10 22:30: DAILY, [place] mg 00 First dose Medical on [place] 02/02/20 at 1730, Until Discontinu ed, Routine labetaloL 2019-04 Yes 10mg 10 mg, Univer s (NORMODYNE) 0-20 Slow IV ity o f injection 22:18: Push, [place] 10 mg 17 Q4HPRN, Medical Starting Branch Sat02/02/20 at 1718, Until Discontinu ed, Routine, sbp > 180 or dbp > 110. hold if HR < 60 D5W 0.45% 2019-04- No IV Univers NaCl 002-02 Infusion, ity of (1/2NS) 1 L 20:15: 16:24 at 50 [place] + KCL 20 00 :26 mL/hr, Medical mEq CONTINUOUS Branch , Starting Sat02/02/20 at 1515, Until Sat02/03/20 at 1124, Routine losartan 2019-04 Yes 100mg 100 mg, Unive rs (COZAAR) 0-20 Oral, ity of tablet 100 19:15: DAILY, [place] mg 00 First dose Medical on Sat [place] 02/02/20 at 1415, Until Discontinu ed, Routine lipase-prot 2020-1 2020- No 1{capsu 1 capsule, Univers ease-amylas [...] 1 [place] mg 00 :00 dose, [facility] 02/02/20 Branch at 0100, Routine D5W 0.45% 2019-04- No 1000mL at 150 Uni vers NaCl 0-20 10-20 mL/hr, ity of (1/2NS) IV 00:15: 19:02 1,000 mL, [place] infusion 00 :15 IV Medical 1,000 mL Infusion, Branch CONTINUOUS , Starting 02/01/20 at 1915, Until Sat02/02/20 at 1402, Routine [...] 10 mg 41 Q4HPRN, Medical Starting Branch [facility] 02/01/20 at 1545, Until Discontinu ed, STAT, SBP > 180, DBP > 120
Ind ication: Hypertensi ve Emergency NaCl 0.45% 2019-04- No 1000mL at 150 Un you (1/2NS) IV 0-19 10-20 mL/hr, ity of infusion 18:45: 06:44 1,000 mL, [place] 1,000 mL 00 :00 IV Medical Infusion, Branch ONCE, 1 dose, [facility] 02/01/20 at 1345, Routine cyanocobala 2019-04- No 1000ug 1,000 mcg, Univers min 10-24 Subcutaneo ity of (VITAMIN 15:30: 14:03 us, Q24H, [place] B12) 00 :58 First dose Medical injection on [facility] Branch 1,000 mcg 02/01/20 at 1030, Until Discontinu ed, Routine NaCl 0.45% 2019-04- No 1000mL at 100 Un you (1/2NS) IV 0- 10-19 mL/hr, ity of infusion 15:30: 17:38 1,000 mL, [place] 1,000 mL 00 :01 IV Medical Infusion, Branch CONTINUOUS , Starting Sat02/01/20 at 1030, Until Sat02/01/20 at 1238, Routine enoxaparin 2019-04- No 30mg 30 mg, [facility] ers (LOVENOX) 0- 10-22 Subcutaneo ity of injection 14:00: 02:09 us, DAILY, [place] 30 mg 00 :34 First dose Medical on [facility] Branch 02/01/20 at 0900, Until Discontinu ed, Routine NaCl 0.9% 2019-04- No 2000mL at 125 Uni vers (NS) IV 0-19 10-19 mL/hr, IV ity of infusion 03:30: 03:17 Infusion, [place] 2,000 mL 00 :00 ONCE, 1 Medical dose, [facility] 01/31/20 at 2230, Routine thiamine 2019-04- No 100mg IV Univers (VITAMIN 0-18 - Piggyback, ity of B1) 100 mg 22:30: 14:59 DAILY, 2 [place] NaCl 00 :00 doses, Medical 0.9% (NS) First dose Bran ch piggyback on 01/31/20 at 1730, Last dose on 02/01/20 at 0900, 50 mL lactated 2019-04- No 1000mL at 125 Univ ers ringers IV 0-18 10-19 mL/hr, ity of infusion 22:30: 02:29 1,000 mL, [place] 1,000 mL 00 :41 IV Medical Infusion, Branch CONTINUOUS , Starting [place] 01/31/20 at 1730, Until [place] 01/31/20 at 2129, Routine NaCl 0.9% 2019-04- No 30mL/kg at 999 Un you (NS) bolus 0-18 10-18 mL/hr, ity of infusion 15:45: 16:04 2,730 mL [place] 2,730 mL 00 :00 (30 mL/kg Medica l ?91 kg), [place] IV Infusion, ONCE, 1 dose, [place] 01/31/20 at 1045, [place] Sucralfate Sucralfate 2019-0 [...] 2.5mg 2.5 mg, U nivers lactate 12-17 09-04 Intravenou ity o f (HALDOL) 23:45: 22:50 s, ONCE, 1 [place] injection 00 :00 dose, Fri Medic al 2.5 mg 12/18/19 at Branch 1845, STAT FENTanyl PF 2019- No 50ug 50 mcg, Un you (SUBLIMAZE 12-17 Slow IV ity o f (PF)) 23:45: 22:50 [place], [place] injection 00 :00 ONCE, 1 Medical 50 mcg dose, Fri Branch 12/18/19 at 1845, Routine iohexol 2020-0 2020- No 120mL 120 mL, Unive rs (OMNIPAQUE 12-17 Intravenou it y of 350 22:01: 22:02 s, ONCE, 1 [place] BULK-100 00 :00 dose, Fri Medica l mL) 12/18/19 at Branch injection 1715, 120 mL Routine proMETHazin 2020-0 2020- No 25mg 25 mg, IV Univers e 12-17 Piggyback, ity of (PHENERGAN) 21:30: 20:40 ONCE, 1 [place] 25 mg in 00 :00 dose, Fri Medica l NaCl 0.9% 12/18/19 at Branc h (NS) 50 mL 1630, 50 piggyback mL proMETHazin 2020-0 Yes [id number] 25mg Insert 1 Univers e 12-17 Suppositor ity of (PHENERGAN) 00:00: y into [place] 25 mg 00 rectum Medical suppository every 4 Branc h (four) hours as needed for Nausea and Vomiting (N/V). proMETHazin 2020-0 Yes [id number] 25mg Insert 1 Univers e 12-17 Suppositor ity of (PHENERGAN) 00:00: y into [place] 25 mg 00 rectum Medical suppository every 4 Branc h (four) hours as needed for Nausea and Vomiting (N/V). proMETHazin 2020-0 Yes [id number] 25mg Insert 1 Univers e 12-17 Suppositor ity of (PHENERGAN) 00:00: y into [place] 25 mg 00 rectum Medical suppository every 4 Branc h (four) hours as needed for Nausea and Vomiting (N/V). proMETHazin 2020-0 Yes [id number] 25mg Insert 1 Univers e 12-17 Suppositor ity of (PHENERGAN) 00:00: y into [place] 25 mg 00 rectum Medical suppository every 4 Branc h (four) hours as needed for Nausea and Vomiting (N/V). proMETHazin 2020-0 Yes [id number] 25mg Insert 1 Univers e 9-04 Suppositor ity of (PHENERGAN) 00:00: y into [place] 25 mg 00 rectum Medical suppository every 4 Branc h (four) hours as needed for Nausea and Vomiting (N/V). proMETHazin 2020-0 Yes [id number] 25mg Insert 1 Univers e 9-04 Suppositor ity of (PHENERGAN) 00:00: y into [place] 25 mg 00 rectum Medical suppository every 4 Branc h (four) hours as needed for Nausea and Vomiting (N/V). proMETHazin 2020-0 Yes [id number] 25mg Insert 1 Univers e 9-04 Suppositor ity of (PHENERGAN) 00:00: y into [place] 25 mg 00 rectum Medical suppository every 4 Branc h (four) hours as needed for Nausea and Vomiting (N/V). proMETHazin 2020-0 Yes [id number] 25mg Insert 1 Univers e 9-04 Suppositor ity of (PHENERGAN) 00:00: y into [place] 25 mg 00 rectum Medical suppository every 4 Branc h (four) hours as needed for Nausea and Vomiting (N/V). proMETHazin 2020-0 Yes [id number] 25mg Insert 1 Univers e 9-04 Suppositor ity of (PHENERGAN) 00:00: y into [place] 25 mg 00 rectum Medical suppository every 4 Branc h (four) hours as needed for Nausea and Vomiting (N/V). proMETHazin 2020-0 Yes [id number] 25mg Insert 1 Univers e 9-04 Suppositor ity of (PHENERGAN) 00:00: y into [place] 25 mg 00 rectum Medical suppository every 4 Branc h (four) hours as needed for Nausea and Vomiting (N/V). proMETHazin 2020-0 Yes [id number] 25mg Insert 1 Univers e 9-04 Suppositor ity of (PHENERGAN) 00:00: y into [place] 25 mg 00 rectum Medical suppository every 4 Branc h (four) hours as needed for Nausea and Vomiting (N/V). proMETHazin 2020-0 Yes [id number] 25mg Insert 1 Univers e 9-04 Suppositor ity of (PHENERGAN) 00:00: y into [place] 25 mg 00 rectum Medical suppository every 4 Branc h (four) hours as needed for Nausea and Vomiting (N/V). proMETHazin 2020-0 Yes [id number] 25mg Insert 1 Univers e 9-04 Suppositor ity of (PHENERGAN) 00:00: y into [place] 25 mg 00 rectum Medical suppository every 4 Branc h (four) hours as needed for Nausea and Vomiting (N/V). proMETHazin 2020-0 Yes [id number] 25mg Insert 1 Univers e 9-04 Suppositor ity of (PHENERGAN) 00:00: y into [place] 25 mg 00 rectum Medical suppository every 4 Branc h (four) hours as needed for Nausea and Vomiting (N/V). proMETHazin 2020-0 Yes [id number] 25mg Insert 1 Univers e 9-04 Suppositor ity of (PHENERGAN) 00:00: y into [place] 25 mg 00 rectum Medical suppository every 4 Branc h (four) hours as needed for Nausea and Vomiting (N/V). proMETHazin 2020-0 Yes [id number] 25mg Insert 1 Univers e 9-04 Suppositor ity of (PHENERGAN) 00:00: y into [place] 25 mg 00 rectum Medical suppository every 4 Branc h (four) hours as needed for Nausea and Vomiting (N/V). proMETHazin 2020-0 Yes [id number] 25mg Insert 1 Univers e 9-04 Suppositor ity of (PHENERGAN) 00:00: y into [place] 25 mg 00 rectum Medical suppository every 4 Branc h (four) hours as needed for Nausea and Vomiting (N/V). proMETHazin 2020-0 Yes [id number] 25mg Insert 1 Univers e 9-04 Suppositor ity of (PHENERGAN) 00:00: y into [place] 25 mg 00 rectum Medical suppository every 4 Branc h (four) hours as needed for Nausea and Vomiting (N/V). proMETHazin 2020-0 Yes [id number] 25mg Insert 1 Univers e 9-04 Suppositor ity of (PHENERGAN) 00:00: y into [place] 25 mg 00 rectum Medical suppository every 4 Branc h (four) hours as needed for Nausea and Vomiting (N/V). proMETHazin 2020-0 2020- No [id number] 25mg Insert 1 Univers e 12-1705 Suppositor ity of (PHENERGAN) 00:00: 00:00 y into [place] 25 mg 00 :00 rectum Medical suppository every 4 Branc h (four) hours as needed for Nausea and Vomiting (N/V). proMETHazin 2019-0 2020- No [id number] 25mg Insert 1 Univers e 12-1705 Suppositor ity of (PHENERGAN) 00:00: 00:00 y into [place] 25 mg 00 :00 rectum Medical suppository every 4 Branc h (four) hours as needed for Nausea and Vomiting (N/V). Chlorhexidi Chlorhexidi 2019-2019- No [place] 15 ML Common ne ne 10-05 0630 [facility] Gluconate Gluconate 00:00: 00:00 spit - [facility]I 00 :00 [facility] cloNIDine 2019-2019- No .2mg 0.2 mg, Univ ers (CATAPRES) 08-21- Oral, ity of tablet 0.2 05:00: 04:00 ONCE, 1 [place] mg 00 :00 dose, Sat Medical 08/22/19 at Branch 0000, STAT ondansetron 2019- No 4mg 4 mg, Slow [...] Fri Branch 08/21/19 at 2315, Routine benzonatate 2019-2019- No 200mg 200 mg, U nivers (TESSALON 08-21- Oral, ONCE ity of PERLES) 04:15: 03:15 NOW, 1 [place] capsule 200 00 :00 dose, Fri Med ical mg 08/21/19 at Branch 2315, Routine Nitrofurant 2020-0 Yes [id number] 100mg Take 1 Univers oin&Nit. 5-08 capsule by ity o f Macrocryst 00:00: mouth 2 [place] (MACROBID) 00 (two) Medical 100 mg times Branch capsule daily. benzonatate 2020-0 Yes [id number] 200mg Take 1 Univers 200 mg 5-08 capsule by ity of capsule 00:00: mouth 3 [place] 00 (three) Medical times Branch daily as needed for Cough. ondansetron 2020-0 Yes [id number] 4mg Take 1 Univers (ZOFRAN) 4 5-08 tablet by ity of mg tablet 00:00: mouth [place] 00 every 8 Medical (eight) Branch hours as needed for Nausea and Vomiting (N/V). traMADol 2020-0 Yes [id number] 50mg Take 1 Uni vers (ULTRAM) 50 5-08 tablet by ity of mg tablet 00:00: mouth [place] 00 every 6 Medical (six) Branch hours as needed for Pain (scale 7-10). albuterol 2020-0 Yes [id number] 2{puff} Inhale 2 Univers 90 5-08 Puffs ity of mcg/actuati 00:00: every 4 [place] on inhaler 00 (four) Medical hours as Branch needed for Wheezing, Shortness of Breath, Bronchospa sm or Chest tightness. benzonatate 2020-0 Yes [id number] 200mg Take 1 [facility] 200 mg 5-08 capsule by ity of capsule 00:00: mouth 3 00 (three) Medical times Branch daily as needed for Cough. ondansetron 2020-0 Yes [id number] 4mg Take 1 Univers (ZOFRAN) 4 5-08 tablet by ity of mg tablet 00:00: mouth [place] 00 every 8 Medical (eight) Branch hours as needed for Nausea and Vomiting (N/V). traMADol 2020-0 Yes [id number] 50mg Take 1 Uni vers (ULTRAM) 50 5-08 tablet by ity of mg tablet 00:00: mouth [place] 00 every 6 Medical (six) Branch hours as needed for Pain (scale 7-10). albuterol 2020-0 Yes [id number] 2{puff} Inhale 2 [facility] 90 5-08 Puffs ity of mcg/actuati 00:00: every 4 [place] on inhaler 00 (four) Medical hours as Branch needed for Wheezing, Shortness of Breath, Bronchospa sm or Chest tightness. benzonatate 2020-0 Yes [id number] 200mg Take 1 [facility] 200 mg 5-08 capsule by ity of capsule 00:00: mouth 3 [place] 00 (three) Medical times Branch daily as needed for Cough. ondansetron 2020-0 Yes [id number] 4mg Take 1 Univers (ZOFRAN) 4 5-08 tablet by ity of mg tablet 00:00: mouth [place] 00 every 8 Medical (eight) Branch hours as needed for Nausea and Vomiting (N/V). traMADol 2020-0 Yes [id number] 50mg Take 1 Uni vers (ULTRAM) 50 5-08 tablet by ity of mg tablet 00:00: mouth [place] 00 every 6 Medical (six) Branch hours as needed for Pain (scale 7-10). albuterol 2020-0 Yes [id number] 2{puff} Inhale 2 [facility] 90 5-08 Puffs ity of mcg/actuati 00:00: every 4 [place] on inhaler 00 (four) Medical hours as Branch needed for Wheezing, Shortness of Breath, Bronchospa sm or Chest tightness. benzonatate 2020-0 Yes [id number] 200mg Take 1 [facility] 200 mg 5-08 capsule by ity of capsule 00:00: mouth 3 00 (three) Medical times Branch daily as needed for Cough. ondansetron 2020-0 Yes [id number] 4mg Take 1 Univers (ZOFRAN) 4 5-08 tablet by ity of mg tablet 00:00: mouth [place] 00 every 8 Medical (eight) Branch hours as needed for Nausea and Vomiting (N/V). traMADol 2020-0 Yes [id number] 50mg Take 1 Uni vers (ULTRAM) 50 5-08 tablet by ity of mg tablet 00:00: mouth [place] 00 every 6 Medical (six) Branch hours as needed for Pain (scale 7-10). albuterol 2020-0 Yes [id number] 2{puff} Inhale 2 [facility] 90 5-08 Puffs ity of mcg/actuati 00:00: every 4 [place] on inhaler 00 (four) Medical hours as Branch needed for Wheezing, Shortness of Breath, Bronchospa sm or Chest tightness. benzonatate 2020-0 Yes [id number] 200mg Take 1 [facility] 200 mg 5-08 capsule by ity of capsule 00:00: mouth 3 (three) Medical times Branch daily as needed for Cough. ondansetron 2020-0 Yes [id number] 4mg Take 1 Univers (ZOFRAN) 4 5-08 tablet by ity of mg tablet 00:00: mouth [place] 00 every 8 Medical (eight) Branch hours as needed for Nausea and Vomiting (N/V). traMADol 2020-0 Yes [id number] 50mg Take 1 Uni vers (ULTRAM) 50 5-08 tablet by ity of mg tablet 00:00: mouth [place] 00 every 6 Medical (six) Branch hours as needed for Pain (scale 7-10). albuterol 2020-0 Yes [id number] 2{puff} Inhale 2 [facility] 90 5-08 Puffs ity of mcg/actuati 00:00: every 4 [place] on inhaler 00 (four) Medical hours as Branch needed for Wheezing, Shortness of Breath, Bronchospa sm or Chest tightness. benzonatate 2020-0 Yes [id number] 200mg Take 1 [facility] 200 mg 5-08 capsule by ity of capsule 00:00: mouth (three) Medical times Branch daily as needed for Cough. ondansetron 2020-0 Yes [id number] 4mg Take 1 Univers (ZOFRAN) 4 5-08 tablet by ity of mg tablet 00:00: mouth [place] 00 every 8 Medical (eight) Branch hours as needed for Nausea and Vomiting (N/V). traMADol 2020-0 Yes [id number] 50mg Take 1 Uni vers (ULTRAM) 50 5-08 tablet by ity of mg tablet 00:00: mouth [place] 00 every 6 Medical (six) Branch hours as needed for Pain (scale 7-10). albuterol 2020-0 Yes [id number] 2{puff} Inhale 2 [facility] 90 5-08 Puffs ity of mcg/actuati 00:00: every 4 [place] on inhaler 00 (four) Medical hours as Branch needed for Wheezing, Shortness of Breath, Bronchospa sm or Chest tightness. benzonatate 2020-0 Yes [id number] 200mg Take 1 [facility] 200 mg 5-08 capsule by ity of capsule 00:00: mouth 3 (three) Medical times Branch daily as needed for Cough. ondansetron 2020-0 Yes [id number] 4mg Take 1 Univers (ZOFRAN) 4 5-08 tablet by ity of mg tablet 00:00: mouth [place] 00 every 8 Medical (eight) Branch hours as needed for Nausea and Vomiting (N/V). traMADol 2020-0 Yes [id number] 50mg Take 1 Uni vers (ULTRAM) 50 5-08 tablet by ity of mg tablet 00:00: mouth [place] 00 every 6 Medical (six) Branch hours as needed for Pain (scale 7-10). albuterol 2020-0 Yes [id number] 2{puff} Inhale 2 [facility] 90 5-08 Puffs ity of mcg/actuati 00:00: every 4 [place] on inhaler 00 (four) Medical hours as Branch needed for Wheezing, Shortness of Breath, Bronchospa sm or Chest tightness. benzonatate 2020-0 Yes [id number] 200mg Take 1 [facility] 200 mg 5-08 capsule by ity of capsule 00:00: mouth 3 [place] 00 (three) Medical times Branch daily as needed for Cough. ondansetron 2020-0 Yes [id number] 4mg Take 1 Univers (ZOFRAN) 4 5-08 tablet by ity of mg tablet 00:00: mouth [place] 00 every 8 Medical (eight) Branch hours as needed for Nausea and Vomiting (N/V). traMADol 2020-0 Yes [id number] 50mg Take 1 Uni vers (ULTRAM) 50 5-08 tablet by ity of mg tablet 00:00: mouth [place] 00 every 6 Medical (six) Branch hours as needed for Pain (scale 7-10). albuterol 2020-0 Yes [id number] 2{puff} Inhale 2 [facility] 90 5-08 Puffs ity of mcg/actuati 00:00: every 4 [place] on inhaler 00 (four) Medical hours as Branch needed for Wheezing, Shortness of Breath, Bronchospa sm or Chest tightness. benzonatate 2020-0 Yes [id number] 200mg Take 1 [facility] 200 mg 5-08 capsule by ity of capsule 00:00: mouth 3 [place] 00 (three) Medical times Branch daily as needed for Cough. ondansetron 2020-0 Yes [id number] 4mg Take 1 Univers (ZOFRAN) 4 5-08 tablet by ity of mg tablet 00:00: mouth [place] 00 every 8 Medical (eight) Branch hours as needed for Nausea and Vomiting (N/V). traMADol 2020-0 Yes [id number] 50mg Take 1 Uni vers (ULTRAM) 50 5-08 tablet by ity of mg tablet 00:00: mouth [place] 00 every 6 Medical (six) Branch hours as needed for Pain (scale 7-10). albuterol 2020-0 Yes [id number] 2{puff} Inhale 2 [facility] 90 5-08 Puffs ity of mcg/actuati 00:00: every 4 [place] on inhaler 00 (four) Medical hours as Branch needed for Wheezing, Shortness of Breath, Bronchospa sm or Chest tightness. benzonatate 2020-0 Yes [id number] 200mg Take 1 [facility] 200 mg 5-08 capsule by ity of capsule 00:00: mouth 3 [place] 00 (three) Medical times Branch daily as needed for Cough. ondansetron 2020-0 Yes [id number] 4mg Take 1 Univers (ZOFRAN) 4 5-08 tablet by ity of mg tablet 00:00: mouth [place] 00 every 8 Medical (eight) Branch hours as needed for Nausea and Vomiting (N/V). traMADol 2020-0 Yes [id number] 50mg Take 1 Uni vers (ULTRAM) 50 5-08 tablet by ity of mg tablet 00:00: mouth [place] 00 every 6 Medical (six) Branch hours as needed for Pain (scale 7-10). albuterol 2020-0 Yes [id number] 2{puff} Inhale 2 [facility] 90 5-08 Puffs ity of mcg/actuati 00:00: every 4 [place] on inhaler 00 (four) Medical hours as Branch needed for Wheezing, Shortness of Breath, Bronchospa sm or Chest tightness. benzonatate 2020-0 Yes [id number] 200mg Take 1 [facility] 200 mg 5-08 capsule by ity of capsule 00:00: mouth 3 [place] 00 (three) Medical times Branch daily as needed for Cough. ondansetron 2020-0 Yes [id number] 4mg Take 1 Univers (ZOFRAN) 4 5-08 tablet by ity of mg tablet 00:00: mouth [place] 00 every 8 Medical (eight) Branch hours as needed for Nausea and Vomiting (N/V). traMADol 2020-0 Yes [id number] 50mg Take 1 Uni vers (ULTRAM) 50 5-08 tablet by ity of mg tablet 00:00: mouth [place] 00 every 6 Medical (six) Branch hours as needed for Pain (scale 7-10). albuterol 2020-0 Yes [id number] 2{puff} Inhale 2 [facility] 90 5-08 Puffs ity of mcg/actuati 00:00: every 4 [place] on inhaler 00 (four) Medical hours as Branch needed for Wheezing, Shortness of Breath, Bronchospa sm or Chest tightness. benzonatate 2020-0 Yes [id number] 200mg Take 1 [facility] 200 mg 5-08 capsule by ity of capsule 00:00: mouth 3 [place] 00 (three) Medical times Branch daily as needed for Cough. ondansetron 2020-0 Yes [id number] 4mg Take 1 Univers (ZOFRAN) 4 5-08 tablet by ity of mg tablet 00:00: mouth [place] 00 every 8 Medical (eight) Branch hours as needed for Nausea and Vomiting (N/V). traMADol 2020-0 Yes [id number] 50mg Take 1 Uni vers (ULTRAM) 50 5-08 tablet by ity of mg tablet 00:00: mouth [place] 00 every 6 Medical (six) Branch hours as needed for Pain (scale 7-10). albuterol 2020-0 Yes [id number] 2{puff} Inhale 2 [facility] 90 5-08 Puffs ity of mcg/actuati 00:00: every 4 [place] on inhaler 00 (four) Medical hours as Branch needed for Wheezing, Shortness of Breath, Bronchospa sm or Chest tightness. benzonatate 2020-0 Yes [id number] 200mg Take 1 [facility] 200 mg 5-08 capsule by ity of capsule 00:00: mouth 3 (three) Medical times Branch daily as needed for Cough. ondansetron 2020-0 Yes [id number] 4mg Take 1 Univers (ZOFRAN) 4 5-08 tablet by ity of mg tablet 00:00: mouth [place] 00 every 8 Medical (eight) Branch hours as needed for Nausea and Vomiting (N/V). traMADol 2020-0 Yes [id number] 50mg Take 1 Uni vers (ULTRAM) 50 5-08 tablet by ity of mg tablet 00:00: mouth [place] 00 every 6 Medical (six) Branch hours as needed for Pain (scale 7-10). albuterol 2020-0 Yes [id number] 2{puff} Inhale 2 [facility] 90 5-08 Puffs ity of mcg/actuati 00:00: every 4 [place] on inhaler 00 (four) Medical hours as Branch needed for Wheezing, Shortness of Breath, Bronchospa sm or Chest tightness. benzonatate 2020-0 Yes [id number] 200mg Take 1 [facility] 200 mg 5-08 capsule by ity of capsule 00:00: mouth 3 [place] 00 (three) Medical times Branch daily as needed for Cough. ondansetron 2020-0 Yes [id number] 4mg Take 1 Univers (ZOFRAN) 4 5-08 tablet by ity of mg tablet 00:00: mouth [place] 00 every 8 Medical (eight) Branch hours as needed for Nausea and Vomiting (N/V). traMADol 2020-0 Yes [id number] 50mg Take 1 Uni vers (ULTRAM) 50 5-08 tablet by ity of mg tablet 00:00: mouth [place] 00 every 6 Medical (six) Branch hours as needed for Pain (scale 7-10). albuterol 2020-0 Yes [id number] 2{puff} Inhale 2 [facility] 90 5-08 Puffs ity of mcg/actuati 00:00: every 4 [place] on inhaler 00 (four) Medical hours as Branch needed for Wheezing, Shortness of Breath, Bronchospa sm or Chest tightness. benzonatate 2020-0 Yes [id number] 200mg Take 1 [facility] 200 mg 5-08 capsule by ity of capsule 00:00: mouth 3 [place] 00 (three) Medical times Branch daily as needed for Cough. ondansetron 2020-0 Yes [id number] 4mg Take 1 Univers (ZOFRAN) 4 5-08 tablet by ity of mg tablet 00:00: mouth [place] 00 every 8 Medical (eight) Branch hours as needed for Nausea and Vomiting (N/V). traMADol 2020-0 Yes [id number] 50mg Take 1 Uni vers (ULTRAM) 50 5-08 tablet by ity of mg tablet 00:00: mouth [place] 00 every 6 Medical (six) Branch hours as needed for Pain (scale 7-10). albuterol 2020-0 Yes [id number] 2{puff} Inhale 2 [facility] 90 5-08 Puffs ity of mcg/actuati 00:00: every 4 [place] on inhaler 00 (four) Medical hours as Branch needed for Wheezing, Shortness of Breath, Bronchospa sm or Chest tightness. benzonatate 2020-0 Yes [id number] 200mg Take 1 [facility] 200 mg 5-08 capsule by ity of capsule 00:00: mouth 3 [place] 00 (three) Medical times Branch daily as needed for Cough. ondansetron 2020-0 Yes [id number] 4mg Take 1 Univers (ZOFRAN) 4 5-08 tablet by ity of mg tablet 00:00: mouth [place] 00 every 8 Medical (eight) Branch hours as needed for Nausea and Vomiting (N/V). traMADol 2020-0 Yes [id number] 50mg Take 1 Uni vers (ULTRAM) 50 5-08 tablet by ity of mg tablet 00:00: mouth [place] 00 every 6 Medical (six) Branch hours as needed for Pain (scale 7-10). albuterol 2020-0 Yes [id number] 2{puff} Inhale 2 [facility] 90 5-08 Puffs ity of mcg/actuati 00:00: every 4 [place] on inhaler 00 (four) Medical hours as Branch needed for Wheezing, Shortness of Breath, Bronchospa sm or Chest tightness. benzonatate 2020-0 Yes [id number] 200mg Take 1 [facility] 200 mg 5-08 capsule by ity of capsule 00:00: mouth 00 (three) Medical times Branch daily as needed for Cough. ondansetron 2020-0 Yes [id number] 4mg Take 1 Univers (ZOFRAN) 4 5-08 tablet by ity of mg tablet 00:00: mouth [place] 00 every 8 Medical (eight) Branch hours as needed for Nausea and Vomiting (N/V). traMADol 2020-0 Yes [id number] 50mg Take 1 Uni vers (ULTRAM) 50 5-08 tablet by ity of mg tablet 00:00: mouth [place] 00 every 6 Medical (six) Branch hours as needed for Pain (scale 7-10). albuterol 2020-0 Yes [id number] 2{puff} Inhale 2 [facility] 90 5-08 Puffs ity of mcg/actuati 00:00: every 4 [place] on inhaler 00 (four) Medical hours as Branch needed for Wheezing, Shortness of Breath, Bronchospa sm or Chest tightness. benzonatate 2020-0 Yes [id number] 200mg Take 1 [facility] 200 mg 5-08 capsule by ity of capsule 00:00: mouth 3 [place] 00 (three) Medical times Branch daily as needed for Cough. ondansetron 2020-0 Yes [id number] 4mg Take 1 Univers (ZOFRAN) 4 5-08 tablet by ity of mg tablet 00:00: mouth [place] 00 every 8 Medical (eight) Branch hours as needed for Nausea and Vomiting (N/V). traMADol 2020-0 Yes [id number] 50mg Take 1 Uni vers (ULTRAM) 50 5-08 tablet by ity of mg tablet 00:00: mouth [place] 00 every 6 Medical (six) Branch hours as needed for Pain (scale 7-10). albuterol 2020-0 Yes [id number] 2{puff} Inhale 2 [facility] 90 5-08 Puffs ity of mcg/actuati 00:00: every 4 [place] on inhaler 00 (four) Medical hours as Branch needed for Wheezing, Shortness of Breath, Bronchospa sm or Chest tightness. benzonatate 2020-0 Yes [id number] 200mg Take 1 [facility] 200 mg 5-08 capsule by ity of capsule 00:00: mouth 3 00 (three) Medical times Branch daily as needed for Cough. ondansetron 2020-0 Yes [id number] 4mg Take 1 Univers (ZOFRAN) 4 5-08 tablet by ity of mg tablet 00:00: mouth [place] 00 every 8 Medical (eight) Branch hours as needed for Nausea and Vomiting (N/V). traMADol 2020-0 Yes [id number] 50mg Take 1 Uni vers (ULTRAM) 50 5-08 tablet by ity of mg tablet 00:00: mouth [place] 00 every 6 Medical (six) Branch hours as needed for Pain (scale 7-10). albuterol 2020-0 Yes [id number] 2{puff} Inhale 2 [facility] 90 5-08 Puffs ity of mcg/actuati 00:00: every 4 [place] on inhaler 00 (four) Medical hours as Branch needed for Wheezing, Shortness of Breath, Bronchospa sm or Chest tightness. ondansetron 2020-0 Yes [id number] 4mg Take 1 [facility] (ZOFRAN) 4 5-08 tablet by ity of mg tablet 00:00: mouth [place] 00 every 8 Medical (eight) Branch hours as needed for Nausea and Vomiting (N/V). ondansetron 2020-0 Yes [id number] 4mg Take 1 [facility] (ZOFRAN) 4 5-08 tablet by ity of mg tablet 00:00: mouth [place] 00 every 8 Medical (eight) Branch hours as needed for Nausea and Vomiting (N/V). ondansetron 2020-0 Yes [id number] 4mg Take 1 [facility] (ZOFRAN) 4 5-08 tablet by ity of mg tablet 00:00: mouth [place] 00 every 8 Medical (eight) Branch hours as needed for Nausea and Vomiting (N/V). ondansetron 2020-0 Yes [id number] 4mg Take 1 [facility] (ZOFRAN) 4 5-08 tablet by ity of mg tablet 00:00: mouth [place] 00 every 8 Medical (eight) Branch hours as needed for Nausea and Vomiting (N/V). Nitrofurant 2020-0 Yes [id number] 100mg Take 1 [facility] oin&Nit. 5-08 capsule by ity o f Macrocryst 00:00: mouth [place] (MACROBID) 00 (two) Medical 100 mg times Branch capsule daily. benzonatate 2020-0 Yes [id number] 200mg Take 1 [facility] 200 mg 5-08 capsule by ity of capsule 00:00: mouth 3 [place] 00 (three) Medical times Branch daily as needed for Cough. ondansetron 2020-0 Yes [id number] 4mg Take 1 [facility] (ZOFRAN) 4 5-08 tablet by ity of mg tablet 00:00: mouth [place] 00 every 8 Medical (eight) Branch hours as needed for Nausea and Vomiting (N/V). traMADol 2020-0 Yes [id number] 50mg Take 1 Uni vers (ULTRAM) 50 5-08 tablet by ity of mg tablet 00:00: mouth [place] 00 every 6 Medical (six) Branch hours as needed for Pain (scale 7-10). albuterol 2020-0 Yes [id number] 2{puff} Inhale 2 [facility] 90 5-08 Puffs ity of mcg/actuati 00:00: every 4 [place] on inhaler 00 (four) Medical hours as Branch needed for Wheezing, Shortness of Breath, Bronchospa sm or Chest tightness. ondansetron 2020-0 2020- No [id number] 4mg Take 1 [facility] (ZOFRAN) 4 5-08 06-30 tablet by ity of mg tablet 00:00: 00:00 mouth [place] 00 :00 every 8 Medical (eight) Branch hours as needed for Nausea and Vomiting (N/V). benzonatate No [id number] 200mg Take 1 [facility] 200 mg 5-08 04-05 capsule by ity of capsule 00:00: 00:00 mouth 3 [place] 00 :00 (three) Medical times Branch daily as needed for Cough. traMADol No [id number] 50mg Take 1 Un you (ULTRAM) 50 5-08 04-05 tablet by it y of mg tablet 00:00: 00:00 mouth [place] 00 :00 every 6 Medical (six) Branch hours as needed for Pain (scale 7-10). albuterol 2020- No [id number] 2{puff} Inhale 2 [facility] 90 5-08 04-05 Puffs ity of mcg/actuati 00:00: 00:00 every 4 [place] inhaler 00 :00 (four) Medical hours as Branch needed for Wheezing, Shortness of Breath, Bronchospa sm or Chest tightness. benzonatate No [id number] 200mg Take 1 [facility] 200 mg 5-08 04-05 capsule by ity of capsule 00:00: 00:00 mouth 3 [place] 00 :00 (three) Medical times Branch daily as needed for Cough. traMADol No [id number] 50mg Take 1 Un you (ULTRAM) 50 5-08 04-05 tablet by it y of mg tablet 00:00: 00:00 mouth [place] 00 :00 every 6 Medical (six) Branch hours as needed for Pain (scale 7-10). albuterol 2020- No [id number] 2{puff} Inhale 2 [facility] 90 5-08 04-05 Puffs ity of mcg/actuati 00:00: 00:00 every 4 [place] on inhaler 00 :00 (four) Medical hours as Branch needed for Wheezing, Shortness of Breath, Bronchospa sm or Chest tightness. Nitrofurant 2019- No [id number] 100mg Take 1 [facility] oin&Nit. - 10-26 capsule by ity of Macrocryst 00:00: 00:00 mouth 2 [place] (MACROBID) 00 :00 (two) Medical 100 mg times Branch capsule daily. HYDROcodone 2020-0 2020- No 1{tbl} 1 tablet, Univers -acetaminop 06-25 Oral, ONCE i ty of hen (NORCO) 01:15: 00:22 NOW, 1 [place] as 10-325 mg 00 :00 dose, [facility] Medic al tablet 1 06/25/19 at [facility] h tablet 2014, [place] dicyclomine Yes 20mg 20 mg, Univ ers (BENTYL) 06-25 Intramuscu ity o f injection 01:00: lar, QID, [place] as 20 mg 00 First dose Medical on [facility] Branch 06/25/19 at 2000, Until Discontinu ed, [place] hydralAZINE 2019- No 20mg 20 mg, Uni vers (APRESOLINE 06-25 Intravenou i ty of ) injection 00:45: 00:10 s, ONCE [place] 20 mg 00 :00 NOW, 1 Medical dose, [facility] Branch 06/25/19 at 1945, [place] metoclopram 2019- No 10mg 10 mg, Uni vers selena HCl 06-24 Slow IV ity of (REGLAN) 23:45: 22:48 Push, [place] injection 00 :00 ONCE, 1 Medical 10 mg dose, [facility] Branch 06/25/19 at 1845, [place] ketorolac 2019- No 30mg 30 mg, Unive rs (TORADOL) 06-24 Slow IV ity of injection 23:45: 22:49 Push, [place] 30 mg 00 :00 ONCE, 1 Medical dose, [facility] Branch 06/25/19 at 1845, [place]
Fa culty member approving Restricted medication : KIRSTIN RON NaCl 0.9% 2019- No 1000mL at 999 Uni vers (NS) bolus 06-24 mL/hr, ity of infusion 22:45: 01:01 1,000 mL, [place] as 1,000 mL 00 :00 IV Medical Infusion, Branch ONCE, 1 dose, [facility] 06/25/19 at 1745, [place] maalox:diph 2019-2019- No 15mL 15 mL, Uni vers enhydrAMINE 06-24 Oral, ity of :lidocaine 22:45: 22:52 ONCE, 1 [place] 2 % viscous 00 :00 dose, [place] Med ical 1:1:1 06/25/19 at [place] ([facility], [facility]) oral suspension [...] dose, Fri Med ical 1:1:1 06/19/19 at [place] ([facility] 190, [facility]) Routine oral suspension 15 mL famotidine 2019-0 2019- No 20mg 20 mg, Univ ers (PEPCID [...] 1,000 mL 00 :00 IV Medical Infusion, [place] ONCE, 1 dose, 06/19/19 at 1530, [place] ondansetron 2020-0 Yes [id number] 8mg Take 2 [facility] 4 mg 3-06 tablets by ity of disintegrat 00:00: mouth [place] ing tablet 00 every 8 Medica l (eight) Branch hours as needed for Nausea and Vomiting (N/V). ondansetron 2020-0 Yes [id number] 8mg Take 2 [facility] 4 mg 3-06 tablets by ity of disintegrat 00:00: mouth [place] ing tablet 00 every 8 Medica l (eight) Branch hours as needed for Nausea and Vomiting (N/V). ondansetron 2020-0 Yes [id number] 8mg Take 2 [facility] 4 mg 3-06 tablets by ity of disintegrat 00:00: mouth [place] ing tablet 00 every 8 Medica l (eight) Branch hours as needed for Nausea and Vomiting (N/V). ondansetron 2020-0 Yes [id number] 8mg Take 2 [facility] 4 mg 3-06 tablets by ity of disintegrat 00:00: mouth [place] ing tablet 00 every 8 Medica l (eight) Branch hours as needed for Nausea and Vomiting (N/V). ondansetron 2020-0 2020- No [id number] 8mg Take 2 [facility] 4 mg 3-06 10-26 tablets by ity of disintegrat 00:00: 00:00 mouth [place] ing tablet 00 :00 every 8 Medica l (eight) Branch hours as needed for Nausea and Vomiting (N/V). famotidine 2020-0 2020- No [id number] 40mg Take 1 [facility] (PEPCID) 40 3-06 04-06 tablet by it y of mg tablet 00:00: 04:59 mouth [place] 00 :00 daily for Medical 30 days. [place] famotidine 2020-0 2020- No [id number] 40mg Take 1 [facility] (PEPCID) 40 3-06 04-06 tablet by it y of mg tablet 00:00: 04:59 mouth [place] 00 :00 daily for Medical 30 days. Branch morpHINE 2020-0 2020- No 4mg 4 mg, Slow Un you injection 4 05-20- IV Push, ity of mg 04:15: 03:09 ONCE, 1 [place] 00 :00 dose, [facility] Medical 05/19/19 at Branch 2215, STAT iohexol 2020-0 2020- No 120mL 120 mL, Unive rs (OMNIPAQUE 05-20-05 Intravenou it y of 350 02:15: 02:15 s, ONCE, 1 [place] BULK-150 00 :00 dose, Tue Medica l mL) 05/19/19 at Branch injection 2014, 120 mL Routine ondansetron 2020-0 2020- No 4mg 4 mg, Slow Univers (ZOFRAN 2- IV Push, ity of (PF)) 02:15: 01:25 ONCE, 1 [place] injection 4 00 :00 dose, Tue Med ical mg 05/19/19 at Branch 2014, Routine morpHINE 2019-0 2020- No 4mg 4 mg, Slow Un you injection 4 05-2005 IV Push, ity of mg 02:15: 01:25 ONCE, 1 [place] 00 :00 dose, Tue Medical 05/19/19 at Branch 2014, STAT traMADol 2020-0 Yes [id number] 100mg Take 1 Un you 100 mg 24 2-04 tablet by ity o f hr tablet 00:00: mouth [place] 00 daily. [facility] Branch ondansetron 2020-0 Yes [id number] 4mg Take 1 Univers 4 mg 2-04 tablet by ity of disintegrat 00:00: mouth [place] ing tablet 00 every 8 Medica l (eight) Branch hours as needed for Nausea and Vomiting (N/V). ondansetron 2020-0 Yes [id number] 4mg Take 1 [facility] 4 mg 2-04 tablet by ity of disintegrat 00:00: mouth [place] ing tablet 00 every 8 Medica l (eight) Branch hours as needed for Nausea and Vomiting (N/V). ondansetron 2020-0 Yes [id number] 4mg Take 1 [facility] 4 mg 2-04 tablet by ity of disintegrat 00:00: mouth [place] ing tablet 00 every 8 Medica l (eight) Branch hours as needed for Nausea and Vomiting (N/V). ondansetron 2020-0 Yes [id number] 4mg Take 1 [facility] 4 mg 2-04 tablet by ity of disintegrat 00:00: mouth [place] ing tablet 00 every 8 Medica l (eight) Branch hours as needed for Nausea and Vomiting (N/V). ondansetron 2020-0 Yes [id number] 4mg Take 1 [facility] 4 mg 2-04 tablet by ity of disintegrat 00:00: mouth [place] ing tablet 00 every 8 Medica l (eight) Branch hours as needed for Nausea and Vomiting (N/V). ondansetron 2020-0 Yes [id number] 4mg Take 1 [facility] 4 mg 2-04 tablet by ity of disintegrat 00:00: mouth [place] ing tablet 00 every 8 Medica l (eight) Branch hours as needed for Nausea and Vomiting (N/V). ondansetron 2020-0 Yes [id number] 4mg Take 1 [facility] 4 mg 2-04 tablet by ity of disintegrat 00:00: mouth [place] ing tablet 00 every 8 Medica l (eight) Branch hours as needed for Nausea and Vomiting (N/V). ondansetron 2020-0 Yes [id number] 4mg Take 1 [facility] 4 mg 2-04 tablet by ity of disintegrat 00:00: mouth [place] ing tablet 00 every 8 Medica l (eight) Branch hours as needed for Nausea and Vomiting (N/V). ondansetron 2020-0 Yes [id number] 4mg Take 1 [facility] 4 mg 2-04 tablet by ity of disintegrat 00:00: mouth [place] ing tablet 00 every 8 Medica l (eight) Branch hours as needed for Nausea and Vomiting (N/V). ondansetron 2020-0 Yes [id number] 4mg Take 1 [facility] 4 mg 2-04 tablet by ity of disintegrat 00:00: mouth [place] ing tablet 00 every 8 Medica l (eight) Branch hours as needed for Nausea and Vomiting (N/V). ondansetron 2020-0 Yes [id number] 4mg Take 1 [facility] 4 mg 2-04 tablet by ity of disintegrat 00:00: mouth [place] ing tablet 00 every 8 Medica l (eight) Branch hours as needed for Nausea and Vomiting (N/V). ondansetron 2020-0 Yes [id number] 4mg Take 1 [facility] 4 mg 2-04 tablet by ity of disintegrat 00:00: mouth [place] ing tablet 00 every 8 Medica l (eight) Branch hours as needed for Nausea and Vomiting (N/V). ondansetron 2020-0 Yes [id number] 4mg Take 1 [facility] 4 mg 2-04 tablet by ity of disintegrat 00:00: mouth [place] ing tablet 00 every 8 Medica l (eight) Branch hours as needed for Nausea and Vomiting (N/V). ondansetron 2020-0 Yes [id number] 4mg Take 1 [facility] 4 mg 2-04 tablet by ity of disintegrat 00:00: mouth [place] ing tablet 00 every 8 Medica l (eight) Branch hours as needed for Nausea and Vomiting (N/V). ondansetron 2020-0 Yes [id number] 4mg Take 1 [facility] 4 mg 2-04 tablet by ity of disintegrat 00:00: mouth [place] ing tablet 00 every 8 Medica l (eight) Branch hours as needed for Nausea and Vomiting (N/V). ondansetron 2020-0 Yes [id number] 4mg Take 1 [facility] 4 mg 2-04 tablet by ity of disintegrat 00:00: mouth [place] ing tablet 00 every 8 Medica l (eight) Branch hours as needed for Nausea and Vomiting (N/V). ondansetron 2020-0 Yes [id number] 4mg Take 1 [facility] 4 mg 2-04 tablet by ity of disintegrat 00:00: mouth [place] ing tablet 00 every 8 Medica l (eight) Branch hours as needed for Nausea and Vomiting (N/V). ondansetron 2020-0 Yes [id number] 4mg Take 1 [facility] 4 mg 2-04 tablet by ity of disintegrat 00:00: mouth [place] ing tablet 00 every 8 Medica l (eight) Branch hours as needed for Nausea and Vomiting (N/V). ondansetron 2020-0 Yes [id number] 4mg Take 1 [facility] 4 mg 2-04 tablet by ity of disintegrat 00:00: mouth [place] ing tablet 00 every 8 Medica l (eight) Branch hours as needed for Nausea and Vomiting (N/V). traMADol 2020-0 Yes [id number] 100mg Take 1 Un you 100 mg 24 2-04 tablet by ity o f hr tablet 00:00: mouth [place] 00 daily. Medical Branch ondansetron 2020-0 Yes [id number] 4mg Take 1 [facility] 4 mg 2-04 tablet by ity of disintegrat 00:00: mouth [place] ing tablet 00 every 8 Medica l (eight) Branch hours as needed for Nausea and Vomiting (N/V). traMADol 2020-0 Yes [id number] 100mg Take 1 Un you 100 mg 24 2-04 tablet by ity o f hr tablet 00:00: mouth [place] 00 daily. Medical Branch ondansetron 2020-0 Yes [id number] 4mg Take 1 [facility] 4 mg 2-04 tablet by ity of disintegrat 00:00: mouth [place] ing tablet 00 every 8 Medica l (eight) Branch hours as needed for Nausea and Vomiting (N/V). traMADol 2020-0 Yes [id number] 100mg Take 1 Un you 100 mg 24 2-04 tablet by ity o f hr tablet 00:00: mouth [place] 00 daily. Medical Branch ondansetron 2020-0 Yes [id number] 4mg Take 1 [facility] 4 mg 2-04 tablet by ity of disintegrat 00:00: mouth [place] ing tablet 00 every 8 Medica l (eight) Branch hours as needed for Nausea and Vomiting (N/V). traMADol 2020-0 Yes [id number] 100mg Take 1 Un you 100 mg 24 2-04 tablet by ity o f hr tablet 00:00: mouth [place] 00 daily. Medical Branch ondansetron 2020-0 Yes [id number] 4mg Take 1 [facility] 4 mg 2-04 tablet by ity of disintegrat 00:00: mouth [place] ing tablet 00 every 8 Medica l (eight) Branch hours as needed for Nausea and Vomiting (N/V). traMADol 2020-0 Yes [id number] 100mg Take 1 Un you 100 mg 24 2-04 tablet by ity o f hr tablet 00:00: mouth [place] 00 daily. Medical Branch ondansetron 2020-0 Yes [id number] 4mg Take 1 [facility] 4 mg 2-04 tablet by ity of disintegrat 00:00: mouth [place] ing tablet 00 every 8 Medica l (eight) Branch hours as needed for Nausea and Vomiting (N/V). ondansetron 2020-0 2020- No [id number] 4mg Take 1 [facility] 4 mg 2-04 04-05 tablet by ity of disintegrat 00:00: 00:00 mouth [place] ing tablet 00 :00 every 8 Medica l (eight) Branch hours as needed for Nausea and Vomiting (N/V). ondansetron 2020-0 2020- No [id number] 4mg Take 1 [facility] 4 mg 2-04 04-05 tablet by ity of disintegrat 00:00: 00:00 mouth [place] ing tablet 00 :00 every 8 Medica l (eight) Branch hours as needed for Nausea and Vomiting (N/V). traMADol 2020- No [id number] 100mg Take 1 U nivers 100 mg [...] 44 daily. Medical Branch ondansetron 2018-04 Yes [id number] 4mg Take 1 [facility] 4 mg tablet 0-26 tablet by ity of 00:00: mouth [place] 00 every 8 Medical (eight) Branch hours as needed for Nausea and Vomiting (N/V). ondansetron 2018-04 Yes [id number] 4mg Take 1 [facility] 4 mg tablet 0-26 tablet by ity of 00:00: mouth [place] 00 every 8 Medical (eight) Branch hours as needed for Nausea and Vomiting (N/V). ondansetron 2018-04 Yes [id number] 4mg Take 1 [facility] 4 mg tablet 0-26 tablet by ity of 00:00: mouth [place] 00 every 8 Medical (eight) Branch hours as needed for Nausea and Vomiting (N/V). ondansetron 2018-04 Yes [id number] 4mg Take 1 [facility] 4 mg tablet 0-26 tablet by ity of 00:00: mouth [place] 00 every 8 Medical (eight) Branch hours as needed for Nausea and Vomiting (N/V). ondansetron 2018-04 Yes [id number] 4mg Take 1 [facility] 4 mg tablet 0-26 tablet by ity of 00:00: mouth [place] 00 every 8 Medical (eight) Branch hours as needed for Nausea and Vomiting (N/V). ondansetron 2018-04 Yes [id number] 4mg Take 1 [facility] 4 mg tablet 0-26 tablet by ity of 00:00: mouth [place] 00 every 8 Medical (eight) Branch hours as needed for Nausea and Vomiting (N/V). ondansetron 2018-04 2020- No [id number] 4mg Take 1 [facility] 4 mg tablet 0-26 10-26 tablet by it y of 00:00: 00:00 mouth [place] 00 :00 every 8 Medical (eight) Branch hours as needed for Nausea and Vomiting (N/V). losartan Yes [id number] 100mg Take 1 Un you 100 mg 9-23 tablet by ity of tablet 00:00: mouth [place] 00 daily. Medical Branch losartan 2019-0 Yes [id number] 100mg Take 1 Un you 100 mg 9-23 tablet by ity of tablet 00:00: mouth [place] 00 daily. Medical Branch losartan 2018-0 Yes [id number] 100mg Take 1 Un you 100 mg 9-23 tablet by ity of tablet 00:00: mouth [place] 00 daily. Medical Branch losartan 2018-0 Yes [id number] 100mg Take 1 Un you 100 mg 9-23 tablet by ity of tablet 00:00: mouth [place] 00 daily. Medical Branch losartan 2018-0 Yes [id number] 100mg Take 1 Un you 100 mg 9-23 tablet by ity of tablet 00:00: mouth [place] 00 daily. Medical Branch losartan 2018-0 Yes [id number] 100mg Take 1 Un you 100 mg 9-23 tablet by ity of tablet 00:00: mouth [place] 00 daily. Medical Branch losartan 2018-0 Yes [id number] 100mg Take 1 Un you 100 mg 9-23 tablet by ity of tablet 00:00: mouth [place] 00 daily. Medical Branch losartan 2018-0 Yes [id number] 100mg Take 1 Un you 100 mg 9-23 tablet by ity of tablet 00:00: mouth [place] 00 daily. Medical Branch losartan 2019-0 Yes [id number] 100mg Take 1 Un you 100 mg 9-23 tablet by ity of tablet 00:00: mouth [place] 00 daily. Medical Branch losartan 2018-0 Yes [id number] 100mg Take 1 Un you 100 mg 9-23 tablet by ity of tablet 00:00: mouth [place] 00 daily. Medical Branch losartan 2019-0 Yes [id number] 100mg Take 1 Un you 100 mg 9-23 tablet by ity of tablet 00:00: mouth [place] 00 daily. Medical Branch losartan 2019-0 Yes [id number] 100mg Take 1 Un you 100 mg 9-23 tablet by ity of tablet 00:00: mouth [place] 00 daily. Medical Branch losartan 2019-0 Yes [id number] 100mg Take 1 Un you 100 mg 9-23 tablet by ity of tablet 00:00: mouth [place] 00 daily. Medical Branch losartan 2019-0 Yes [id number] 100mg Take 1 Un you 100 mg 9-23 tablet by ity of tablet 00:00: mouth [place] 00 daily. Medical Branch losartan 2019-0 Yes [id number] 100mg Take 1 Un you 100 mg 9-23 tablet by ity of tablet 00:00: mouth [place] 00 daily. Medical Branch losartan Yes [id number] 100mg Take 1 Un you 100 mg 9-23 tablet by ity of tablet 00:00: mouth [place] 00 daily. Medical Branch losartan Yes [id number] 100mg Take 1 Un you 100 mg 9-23 tablet by ity of tablet 00:00: mouth [place] 00 daily. Medical Branch losartan Yes [id number] 100mg Take 1 Un you 100 mg 9-23 tablet by ity of tablet 00:00: mouth [place] 00 daily. Medical Branch losartan Yes [id number] 100mg Take 1 Un you 100 mg 9-23 tablet by ity of tablet 00:00: mouth [place] 00 daily. Medical Branch losartan Yes [id number] 100mg Take 1 Un you 100 mg 9-23 tablet by ity of tablet 00:00: mouth [place] 00 daily. Medical Branch losartan Yes [id number] 100mg Take 1 Un you 100 mg 9-23 tablet by ity of tablet 00:00: mouth [place] 00 daily. Medical Branch losartan Yes [id number] 100mg Take 1 Un you 100 mg 9-23 tablet by ity of tablet 00:00: mouth [place] 00 daily. Medical Branch losartan Yes [id number] 100mg Take 1 Un you 100 mg 9-23 tablet by ity of tablet 00:00: mouth [place] 00 daily. Medical Branch losartan Yes [id number] 100mg Take 1 Un you 100 mg 9-23 tablet by ity of tablet 00:00: mouth [place] 00 daily. Medical Branch losartan 2020- No [id number] 100mg Take 1 U nivers 100 mg 9-23 04-05 tablet by ity of tablet 00:00: 00:00 mouth [place] 00 :00 daily. Medical Branch losartan 2018-0 2020- No [id number] 100mg Take 1 U nivers 100 mg 9-23 04-05 tablet by ity of tablet 00:00: 00:00 mouth [place] 00 :00 daily. Medical Branch traMADol 50 2019-0 Yes [id number] 1 by mouth [facility] mg tablet 12-05 [id number] every 4-6 ity of 00:00: hours as [place] 00 needed for Medical pain Branch traMADol 50 2019-0 Yes [id number] 1 by mouth [facility] mg tablet 12-05 [id number] every 4-6 ity of 00:00: hours as [place] 00 needed for Medical pain Branch traMADol 50 2019-0 Yes [id number] 1 by mouth [facility] mg tablet 12-05 [id number] every 4-6 ity of 00:00: hours as [place] 00 needed for Medical pain Branch traMADol 50 2019-0 Yes [id number] 1 by mouth [facility] mg tablet 12-05 [id number] every 4-6 ity of 00:00: hours as [place] 00 needed for Medical pain Branch traMADol 50 2019-0 Yes [id number] 1 by mouth [facility] mg tablet 12-05 [id number] every 4-6 ity of 00:00: hours as [place] 00 needed for Medical pain Branch traMADol 50 2019-0 Yes [id number] 1 by mouth [facility] mg tablet 12-05 [id number] every 4-6 ity of 00:00: hours as [place] 00 needed for Medical pain Branch traMADol 50 2019-0 Yes [id number] 1 by mouth [facility] mg tablet 12-05 [id number] every 4-6 ity of 00:00: hours as [place] 00 needed for Medical pain Branch traMADol 50 2019-0 Yes [id number] 1 by mouth [facility] mg tablet 12-05 [id number] every 4-6 ity of 00:00: hours as [place] 00 needed for Medical pain Branch traMADol 50 2019-0 Yes [id number] 1 by mouth [facility] mg tablet 12-05 [id number] every 4-6 ity of 00:00: hours as [place] 00 needed for Medical pain Branch traMADol 50 2019-0 Yes [id number] 1 by mouth [facility] mg tablet 12-05 [id number] every 4-6 ity of 00:00: hours as [place] 00 needed for Medical pain Branch traMADol 50 2019-0 Yes [id number] 1 by mouth Univers mg tablet 8- [id number] every 4-6 ity of 00:00: hours as [place] 00 needed for Medical pain Branch traMADol 50 2019-0 Yes [id number] 1 by mouth [facility] mg tablet 8- [id number] every 4-6 ity of 00:00: hours as [place] 00 needed for Medical pain Branch traMADol 50 2019-0 Yes [id number] 1 by mouth [facility] mg tablet 8- [id number] every 4-6 ity of 00:00: hours as [place] 00 needed for Medical pain Branch traMADol 50 2019- Yes [id number] 1 by mouth [facility] mg tablet 12-05 [id number] every 4-6 ity of 00:00: hours as [place] 00 needed for Medical pain Branch traMADol 50 2019- Yes [id number] 1 by mouth [facility] mg tablet 12-05 [id number] every 4-6 ity of 00:00: hours as [place] 00 needed for Medical pain Branch traMADol 50 2019- Yes [id number] 1 by mouth [facility] mg tablet 12-05 [id number] every 4-6 ity of 00:00: hours as [place] 00 needed for Medical pain Branch traMADol 50 2019- Yes [id number] 1 by mouth [facility] mg tablet 12-05 [id number] every 4-6 ity of 00:00: hours as [place] 00 needed for Medical pain Branch traMADol 50 2018- 2020- No [id number] 1 by mouth [facility] mg tablet 12-05 [id number] every 4-6 it y of 00:00: 00:00 hours as [place] 00 :00 needed for Medical pain Branch ondansetron 2018- 2019- No 4mg 4 mg, Slow Univers [...] mg 00 :00 ONCE, 1 Medical dose, [facility] 12/01/18 at 1545, [place]
Fa culty member approving Restricted medication : Jaki POLANCO LOSARTAN 2019- Yes 100mg Take 100 Univ ers POTASSIUM 8-05 mg by ity of (LOSARTAN 21:38: mouth [place] ORAL) 24 daily. Medical Branch gabapentin 2018- Yes 300mg Take 300 Un you (NEURONTIN) [...] [place] ORAL) 24 daily. Medical Branch gabapentin 2019- Yes 300mg Take 300 Un you (NEURONTIN) 8-05 mg by ity of 300 mg 21:38: mouth 2 [place] capsule 24 (two) Medical times Branch daily. QUEtiapine 2019- Yes 100mg Take 100 Un you (SEROQUEL) [...] [place] Branch 11/16/18 at 2115, [place] pantoprazol 2018- Yes [id number] 40mg Take 1 Univers e 40 mg EC 8-05 tablet by ity of tablet 00:00: mouth 2 [place] 00 (two) Medical times Branch daily. proMETHazin Yes [id number] 25mg Take 1 Univers e 25 mg 8-05 tablet by ity of tablet 00:00: mouth [place] 00 every 6 Medical (six) Branch hours as needed for N/V alternatin g with Ondansetro n. HYDROcodone Yes [id number] 1{tbl} Take 1 [facility] -acetaminop 8-05 tablet by ity of hen 7.5-325 00:00: mouth [place] mg per 00 every 6 Medical tablet (six) Branch hours as needed (Pain scal 7-10). pantoprazol Yes [id number] 40mg Take 1 Univers e 40 mg EC 8-05 tablet by ity of tablet 00:00: mouth 2 [place] 00 (two) Medical times Branch daily. proMETHazin Yes [id number] 25mg Take 1 Univers e 25 mg 8-05 tablet by ity of tablet 00:00: mouth [place] 00 every 6 Medical (six) Branch hours as needed for N/V alternatin g with Ondansetro n. HYDROcodone Yes [id number] 1{tbl} Take 1 Univers -acetaminop 8-05 tablet by ity of hen 7.5-325 00:00: mouth [place] mg per 00 every 6 Medical tablet (six) Branch hours as needed (Pain scal 7-10). pantoprazol Yes [id number] 40mg Take 1 Univers e 40 mg EC 8-05 tablet by ity of tablet 00:00: mouth 2 [place] 00 (two) Medical times Branch daily. proMETHazin Yes [id number] 25mg Take 1 Univers e 25 mg 8-05 tablet by ity of tablet 00:00: mouth [place] 00 every 6 Medical (six) Branch hours as needed for N/V alternatin g with Ondansetro n. HYDROcodone 2018- Yes [id number] 1{tbl} Take 1 Univers -acetaminop 8-05 tablet by ity of hen 7.5-325 00:00: mouth [place] mg per 00 every 6 Medical tablet (six) Branch hours as needed (Pain scal 7-10). pantoprazol Yes [id number] 40mg Take 1 Univers e 40 mg EC 8-05 tablet by ity of tablet 00:00: mouth 2 [place] 00 (two) Medical times Branch daily. proMETHazin Yes [id number] 25mg Take 1 Univers e 25 mg 8-05 tablet by ity of tablet 00:00: mouth [place] 00 every 6 Medical (six) Branch hours as needed for N/V alternatin g with Ondansetro n. HYDROcodone Yes [id number] 1{tbl} Take 1 Univers -acetaminop 8-05 tablet by ity of hen 7.5-325 00:00: mouth [place] mg per 00 every 6 Medical tablet (six) Branch hours as needed (Pain scal 7-10). pantoprazol Yes [id number] 40mg Take 1 [facility] EC 8-05 tablet by [facility] tablet 00:00: mouth 2 [place] 00 (two) Medical times Branch daily. proMETHazin Yes [id number] 25mg Take 1 [facility] 25 mg 8-05 tablet by [facility] tablet 00:00: mouth [place] 00 every 6 Medical (six) Branch hours as needed for N/V alternatin g with Ondansetro n. HYDROcodone Yes [id number] 1{tbl} Take 1 [facility] -acetaminop 8-05 tablet by [facility] hen 7.5-325 00:00: mouth [place] mg per 00 every 6 Medical tablet (six) Branch hours as needed (Pain scal 7-10). pantoprazol Yes [id number] 40mg Take 1 [facility] 40 mg EC 8-05 tablet by [facility] tablet 00:00: mouth 2 [place] 00 (two) Medical times Branch daily. proMETHazin Yes [id number] 25mg Take 1 [facility] 25 mg 8-05 tablet by [facility] tablet 00:00: mouth [place] 00 every 6 Medical (six) Branch hours as needed for N/V alternatin g with Ondansetro n. HYDROcodone Yes [id number] 1{tbl} Take 1 [facility] -acetaminop 8-05 tablet by [facility] hen 7.5-325 00:00: mouth [place] mg per 00 every 6 Medical tablet (six) Branch hours as needed (Pain scal 7-10). pantoprazol Yes [id number] 40mg Take 1 [facility] 40 mg EC 8-05 tablet by [facility] tablet 00:00: mouth 2 [place] 00 (two) Medical times Branch daily. proMETHazin Yes [id number] 25mg Take 1 [facility] 25 mg 8-05 tablet by [facility] tablet 00:00: mouth [place] 00 every 6 Medical (six) Branch hours as needed for N/V alternatin g with Ondansetro n. HYDROcodone Yes [id number] 1{tbl} Take 1 [facility] -acetaminop 8-05 tablet by [facility] hen 7.5-325 00:00: mouth [place] mg per 00 every 6 Medical tablet (six) Branch hours as needed (Pain scal 7-10). pantoprazol Yes [id number] 40mg Take 1 [facility] 40 mg EC 8-05 tablet by [facility] tablet 00:00: mouth 2 [place] 00 (two) Medical times Branch daily. proMETHazin Yes [id number] 25mg Take 1 [facility] 25 mg 8-05 tablet by [facility] tablet 00:00: mouth [place] 00 every 6 Medical (six) Branch hours as needed for N/V alternatin g with Ondansetro n. HYDROcodone Yes [id number] 1{tbl} Take 1 [facility] -acetaminop 8-05 tablet by [facility] hen 7.5-325 00:00: mouth [place] mg per 00 every 6 Medical tablet (six) Branch hours as needed (Pain scal 7-10). pantoprazol Yes [id number] 40mg Take 1 [facility] 40 mg EC 8-05 tablet by [facility] tablet 00:00: mouth 2 [place] 00 (two) Medical times Branch daily. proMETHazin Yes [id number] 25mg Take 1 [facility] 25 mg 8-05 tablet by [facility] tablet 00:00: mouth [place] 00 every 6 Medical (six) Branch hours as needed for N/V alternatin g with Ondansetro n. HYDROcodone 2018- Yes [id number] 1{tbl} Take 1 [facility] -acetaminop 8-05 tablet by [facility] hen 7.5-325 00:00: mouth [place] mg per 00 every 6 Medical tablet (six) Branch hours as needed (Pain scal 7-10). pantoprazol Yes [id number] 40mg Take 1 [facility] 40 mg EC 8-05 tablet by [facility] tablet 00:00: mouth 2 [place] 00 (two) Medical times Branch daily. proMETHazin Yes [id number] 25mg Take 1 [facility] 25 mg 8-05 tablet by [facility] tablet 00:00: mouth [place] 00 every 6 Medical (six) Branch hours as needed for N/V alternatin g with Ondansetro n. HYDROcodone Yes [id number] 1{tbl} Take 1 [facility] -acetaminop 8-05 tablet by [facility] hen 7.5-325 00:00: mouth [place] mg per 00 every 6 Medical tablet (six) Branch hours as needed (Pain scal 7-10). pantoprazol Yes [id number] 40mg Take 1 [facility] 40 mg EC 8-05 tablet by [facility] tablet 00:00: mouth 2 [place] 00 (two) Medical times Branch daily. proMETHazin Yes [id number] 25mg Take 1 [facility] 25 mg 8-05 tablet by [facility] tablet 00:00: mouth [place] 00 every 6 Medical (six) Branch hours as needed for N/V alternatin g with Ondansetro n. HYDROcodone Yes [id number] 1{tbl} Take 1 [facility] -acetaminop 8-05 tablet by [facility] hen 7.5-325 00:00: mouth [place] mg per 00 every 6 Medical tablet (six) Branch hours as needed (Pain scal 7-10). pantoprazol Yes [id number] 40mg Take 1 [facility] 40 mg EC 8-05 tablet by [facility] tablet 00:00: mouth 2 [place] 00 (two) Medical times Branch daily. proMETHazin Yes [id number] 25mg Take 1 [facility] 25 mg 8-05 tablet by [facility] tablet 00:00: mouth [place] 00 every 6 Medical (six) Branch hours as needed for N/V alternatin g with Ondansetro n. HYDROcodone Yes [id number] 1{tbl} Take 1 [facility] -acetaminop 8-05 tablet by [facility] hen 7.5-325 00:00: mouth [place] mg per 00 every 6 Medical tablet (six) Branch hours as needed (Pain scal 7-10). pantoprazol Yes [id number] 40mg Take 1 [facility] 40 mg EC 8-05 tablet by [facility] tablet 00:00: mouth 2 [place] 00 (two) Medical times Branch daily. proMETHazin Yes [id number] 25mg Take 1 [facility] 25 mg 8-05 tablet by [facility] tablet 00:00: mouth [place] 00 every 6 Medical (six) Branch hours as needed for N/V alternatin g with Ondansetro n. HYDROcodone Yes [id number] 1{tbl} Take 1 [facility] -acetaminop 8-05 tablet by [facility] hen 7.5-325 00:00: mouth [place] mg per 00 every 6 Medical tablet (six) Branch hours as needed (Pain scal 7-10). pantoprazol Yes [id number] 40mg Take 1 [facility] 40 mg EC 8-05 tablet by [facility] tablet 00:00: mouth 2 [place] 00 (two) Medical times Branch daily. proMETHazin Yes [id number] 25mg Take 1 [facility] 25 mg 8-05 tablet by [facility] tablet 00:00: mouth [place] 00 every 6 Medical (six) Branch hours as needed for N/V alternatin g with Ondansetro n. HYDROcodone Yes [id number] 1{tbl} Take 1 [facility] -acetaminop 8-05 tablet by [facility] hen 7.5-325 00:00: mouth [place] mg per 00 every 6 Medical tablet (six) Branch hours as needed (Pain scal 7-10). pantoprazol Yes [id number] 40mg Take 1 [facility] 40 mg EC 8-05 tablet by [facility] tablet 00:00: mouth 2 [place] 00 (two) Medical times Branch daily. proMETHazin 2018- Yes [id number] 25mg Take 1 [facility] 25 mg 8-05 tablet by [facility] tablet 00:00: mouth [place] 00 every 6 Medical (six) Branch hours as needed for N/V alternatin g with Ondansetro n. HYDROcodone 2018- Yes [id number] 1{tbl} Take 1 [facility] -acetaminop 8-05 tablet by [facility] hen 7.5-325 00:00: mouth [place] mg per 00 every 6 Medical tablet (six) Branch hours as needed (Pain scal 7-10). pantoprazol Yes [id number] 40mg Take 1 [facility] 40 mg EC 8-05 tablet by [facility] tablet 00:00: mouth 2 [place] 00 (two) Medical times Branch daily. proMETHazin Yes [id number] 25mg Take 1 [facility] 25 mg 8-05 tablet by [facility] tablet 00:00: mouth [place] 00 every 6 Medical (six) Branch hours as needed for N/V alternatin g with Ondansetro n. HYDROcodone Yes [id number] 1{tbl} Take 1 [facility] -acetaminop 8-05 tablet by [facility] hen 7.5-325 00:00: mouth [place] mg per 00 every 6 Medical tablet (six) Branch hours as needed (Pain scal 7-10). pantoprazol Yes [id number] 40mg Take 1 [facility] 40 mg EC 8-05 tablet by [facility] tablet 00:00: mouth 2 [place] 00 (two) Medical times Branch daily. proMETHazin Yes [id number] 25mg Take 1 [facility] 25 mg 8-05 tablet by [facility] tablet 00:00: mouth [place] 00 every 6 Medical (six) Branch hours as needed for N/V alternatin g with Ondansetro n. HYDROcodone Yes [id number] 1{tbl} Take 1 [facility] -acetaminop 8-05 tablet by [facility] hen 7.5-325 00:00: mouth [place] mg per 00 every 6 Medical tablet (six) Branch hours as needed (Pain scal 7-10). pantoprazol Yes [id number] 40mg Take 1 [facility] 40 mg EC 8-05 tablet by [facility] tablet 00:00: mouth 2 [place] 00 (two) Medical times Branch daily. proMETHazin Yes [id number] 25mg Take 1 [facility] 25 mg 8-05 tablet by [facility] tablet 00:00: mouth [place] 00 every 6 Medical (six) Branch hours as needed for N/V alternatin g with Ondansetro n. HYDROcodone Yes [id number] 1{tbl} Take 1 [facility] -acetaminop 8-05 tablet by [facility] hen 7.5-325 00:00: mouth [place] mg per 00 every 6 Medical tablet (six) Branch hours as needed (Pain scal 7-10). pantoprazol Yes [id number] 40mg Take 1 [facility] 40 mg EC 8-05 tablet by [facility] tablet 00:00: mouth 2 [place] 00 (two) Medical times Branch daily. proMETHazin Yes [id number] 25mg Take 1 [facility] 25 mg 8-05 tablet by [facility] tablet 00:00: mouth [place] 00 every 6 Medical (six) Branch hours as needed for N/V alternatin g with Ondansetro n. HYDROcodone Yes [id number] 1{tbl} Take 1 [facility] -acetaminop 8-05 tablet by [facility] hen 7.5-325 00:00: mouth [place] mg per 00 every 6 Medical tablet (six) Branch hours as needed (Pain scal 7-10). HYDROcodone Yes [id number] 1{tbl} Take 1 [facility] -acetaminop 8-05 tablet by [facility] hen 7.5-325 00:00: mouth [place] mg per 00 every 6 Medical tablet (six) Branch hours as needed (Pain scal 7-10). HYDROcodone Yes [id number] 1{tbl} Take 1 [facility] -acetaminop 8-05 tablet by [facility] hen 7.5-325 00:00: mouth [place] mg per 00 every 6 Medical tablet (six) Branch hours as needed (Pain scal 7-10). HYDROcodone Yes [id number] 1{tbl} Take 1 [facility] -acetaminop 8-05 tablet by [facility] hen 7.5-325 00:00: mouth [place] mg per 00 every 6 Medical tablet (six) Branch hours as needed (Pain scal 7-10). HYDROcodone Yes [id number] 1{tbl} Take 1 [facility] -acetaminop 8-05 tablet by [facility] hen 7.5-325 00:00: mouth [place] mg per 00 every 6 Medical tablet (six) Branch hours as needed (Pain scal 7-10). HYDROcodone Yes [id number] 1{tbl} Take 1 [facility] -acetaminop 8-05 tablet by [facility] hen 7.5-325 00:00: mouth [place] mg per 00 every 6 Medical tablet (six) Branch hours as needed (Pain scal 7-10). HYDROcodone Yes [id number] 1{tbl} Take 1 [facility] -acetaminop 8-05 tablet by [facility] hen 7.5-325 00:00: mouth [place] mg per 00 every 6 Medical tablet (six) Branch hours as needed (Pain scal 7-10). HYDROcodone Yes [id number] 1{tbl} Take 1 [facility] -acetaminop 8-05 tablet by [facility] hen 7.5-325 00:00: mouth [place] mg per 00 every 6 Medical tablet (six) Branch hours as needed (Pain scal 7-10). HYDROcodone Yes [id number] 1{tbl} Take 1 [facility] -acetaminop 8-05 tablet by [facility] hen 7.5-325 00:00: mouth [place] mg per 00 every 6 Medical tablet (six) Branch hours as needed (Pain scal 7-10). HYDROcodone Yes [id number] 1{tbl} Take 1 [facility] -acetaminop 8-05 tablet by [facility] hen 7.5-325 00:00: mouth [place] mg per 00 every 6 Medical tablet (six) Branch hours as needed (Pain scal 7-10). HYDROcodone Yes [id number] 1{tbl} Take 1 [facility] -acetaminop 8-05 tablet by [facility] hen 7.5-325 00:00: mouth [place] mg per 00 every 6 Medical tablet (six) Branch hours as needed (Pain scal 7-10). HYDROcodone Yes [id number] 1{tbl} Take 1 [facility] -acetaminop 8-05 tablet by [facility] hen 7.5-325 00:00: mouth [place] mg per 00 every 6 Medical tablet (six) Branch hours as needed (Pain scal 7-10). HYDROcodone Yes [id number] 1{tbl} Take 1 [facility] -acetaminop 8-05 tablet by [facility] hen 7.5-325 00:00: mouth [place] mg per 00 every 6 Medical tablet (six) Branch hours as needed (Pain scal 7-10). HYDROcodone Yes [id number] 1{tbl} Take 1 [facility] -acetaminop 8-05 tablet by [facility] hen 7.5-325 00:00: mouth [place] mg per 00 every 6 Medical tablet (six) Branch hours as needed (Pain scal 7-10). HYDROcodone Yes [id number] 1{tbl} Take 1 [facility] -acetaminop 8-05 tablet by [facility] hen 7.5-325 00:00: mouth [place] mg per 00 every 6 Medical tablet (six) Branch hours as needed (Pain scal 7-10). HYDROcodone Yes [id number] 1{tbl} Take 1 [facility] -acetaminop 8-05 tablet by [facility] hen 7.5-325 00:00: mouth [place] mg per 00 every 6 Medical tablet (six) Branch hours as needed (Pain scal 7-10). HYDROcodone Yes [id number] 1{tbl} Take 1 [facility] -acetaminop 8-05 tablet by [facility] hen 7.5-325 00:00: mouth [place] mg per 00 every 6 Medical tablet (six) Branch hours as needed (Pain scal 7-10). HYDROcodone Yes [id number] 1{tbl} Take 1 [facility] -acetaminop 8-05 tablet by [facility] hen 7.5-325 00:00: mouth [place] mg per 00 every 6 Medical tablet (six) Branch hours as needed (Pain scal 7-10). HYDROcodone Yes [id number] 1{tbl} Take 1 [facility] -acetaminop 8-05 tablet by [facility] hen 7.5-325 00:00: mouth [place] mg per 00 every 6 Medical tablet (six) Branch hours as needed (Pain scal 7-10). HYDROcodone Yes [id number] 1{tbl} Take 1 [facility] -acetaminop 8-05 tablet by [facility] hen 7.5-325 00:00: mouth [place] mg per 00 every 6 Medical tablet (six) Branch hours as needed (Pain scal 7-10). HYDROcodone Yes [id number] 1{tbl} Take 1 [facility] -acetaminop 8-05 tablet by [facility] hen 7.5-325 00:00: mouth [place] mg per 00 every 6 Medical tablet (six) Branch hours as needed (Pain scal 7-10). HYDROcodone Yes [id number] 1{tbl} Take 1 [facility] -acetaminop 8-05 tablet by [facility] hen 7.5-325 00:00: mouth [place] mg per 00 every 6 Medical tablet (six) Branch hours as needed (Pain scal 7-10). HYDROcodone Yes [id number] 1{tbl} Take 1 [facility] -acetaminop 8-05 tablet by [facility] hen 7.5-325 00:00: mouth [place] mg per 00 every 6 Medical tablet (six) Branch hours as needed (Pain scal 7-10). HYDROcodone Yes [id number] 1{tbl} Take 1 [facility] -acetaminop 8-05 tablet by [facility] hen 7.5-325 00:00: mouth [place] mg per 00 every 6 Medical tablet (six) Branch hours as needed (Pain scal 7-10). HYDROcodone Yes [id number] 1{tbl} Take 1 [facility] -acetaminop 8-05 tablet by [facility] hen 7.5-325 00:00: mouth [place] mg per 00 every 6 Medical tablet (six) Branch hours as needed (Pain scal 7-10). HYDROcodone Yes [id number] 1{tbl} Take 1 [facility] -acetaminop 8-05 tablet by [facility] hen 7.5-325 00:00: mouth [place] mg per 00 every 6 Medical tablet (six) Branch hours as needed (Pain scal 7-10). HYDROcodone Yes [id number] 1{tbl} Take 1 [facility] -acetaminop 8-05 tablet by [facility] hen 7.5-325 00:00: mouth [place] mg per 00 every 6 Medical tablet (six) Branch hours as needed (Pain scal 7-10). HYDROcodone Yes [id number] 1{tbl} Take 1 [facility] -acetaminop 8-05 tablet by [facility] hen 7.5-325 00:00: mouth [place] mg per 00 every 6 Medical tablet (six) Branch hours as needed (Pain scal 7-10). HYDROcodone Yes [id number] 1{tbl} Take 1 [facility] -acetaminop 8-05 tablet by [facility] hen 7.5-325 00:00: mouth [place] mg per 00 every 6 Medical tablet (six) Branch hours as needed (Pain scal 7-10). HYDROcodone Yes [id number] 1{tbl} Take 1 [facility] -acetaminop 8-05 tablet by [facility] hen 7.5-325 00:00: mouth [place] mg per 00 every 6 Medical tablet (six) Branch hours as needed (Pain scal 7-10). HYDROcodone Yes [id number] 1{tbl} Take 1 [facility] -acetaminop 8-05 tablet by [facility] hen 7.5-325 00:00: mouth [place] mg per 00 every 6 Medical tablet (six) Branch hours as needed (Pain scal 7-10). HYDROcodone Yes [id number] 1{tbl} Take 1 [facility] -acetaminop 8-05 tablet by [facility] hen 7.5-325 00:00: mouth [place] mg per 00 every 6 Medical tablet (six) Branch hours as needed (Pain scal 7-10). HYDROcodone Yes [id number] 1{tbl} Take 1 [facility] -acetaminop 8-05 tablet by [facility] hen 7.5-325 00:00: mouth [place] mg per 00 every 6 Medical tablet (six) Branch hours as needed (Pain scal 7-10). HYDROcodone Yes [id number] 1{tbl} Take 1 [facility] -acetaminop 8-05 tablet by [facility] hen 7.5-325 00:00: mouth [place] mg per 00 every 6 Medical tablet (six) Branch hours as needed (Pain scal 7-10). HYDROcodone Yes [id number] 1{tbl} Take 1 [facility] -acetaminop 8-05 tablet by [facility] of hen 7.5-325 00:00: mouth [place] mg per 00 every 6 Medical tablet (six) Branch hours as needed (Pain scal 7-10). HYDROcodone Yes [id number] 1{tbl} Take 1 [facility] -acetaminop 8-05 tablet by [facility] hen 7.5-325 00:00: mouth [place] mg per 00 every 6 Medical tablet (six) Branch hours as needed (Pain scal 7-10). HYDROcodone Yes [id number] 1{tbl} Take 1 [facility] -acetaminop 8-05 tablet by [facility] hen 7.5-325 00:00: mouth [place] mg per 00 every 6 Medical tablet (six) Branch hours as needed (Pain scal 7-10). HYDROcodone 2018- Yes [id number] 1{tbl} Take 1 [facility] -acetaminop 8-05 tablet by [facility] hen 7.5-325 00:00: mouth [place] mg per 00 every 6 Medical tablet (six) Branch hours as needed (Pain scal 7-10). pantoprazol 2018- Yes [id number] 40mg Take 1 [facility] 40 mg EC 8-05 tablet by [facility] tablet 00:00: mouth 2 [place] 00 (two) Medical times Branch daily. ondansetron 2018- Yes [id number] 4mg Take 1 [facility] 4 mg tablet 8-05 tablet by [facility] of 00:00: mouth [place] 00 every 8 Medical (eight) Branch hours as needed for Nausea and Vomiting (N/V). proMETHazin 2018- Yes [id number] 25mg Take 1 [facility] 25 mg 8-05 tablet by [facility] tablet 00:00: mouth [place] 00 every 6 Medical (six) Branch hours as needed for N/V alternatin g with Ondansetro n. HYDROcodone Yes [id number] 1{tbl} Take 1 [facility] -acetaminop 8-05 tablet by [facility] hen 7.5-325 00:00: mouth [place] mg per 00 every 6 Medical tablet (six) Branch hours as needed (Pain scal 7-10). pantoprazol 2018- Yes [id number] 40mg Take 1 [facility] 40 mg EC 8-05 tablet by [facility] tablet 00:00: mouth 2 [place] 00 (two) Medical times Branch daily. ondansetron 2018- Yes [id number] 4mg Take 1 [facility] 4 mg tablet 8-05 tablet by [facility] of 00:00: mouth [place] 00 every 8 Medical (eight) Branch hours as needed for Nausea and Vomiting (N/V). proMETHazin 2019-0 Yes [id number] 25mg Take 1 [facility] 25 mg 8-05 tablet by [facility] tablet 00:00: mouth [place] 00 every 6 Medical (six) Branch hours as needed for N/V alternatin g with Ondansetro n. HYDROcodone 2018- Yes [id number] 1{tbl} Take 1 [facility] -acetaminop 8-05 tablet by [facility] of hen 7.5-325 00:00: mouth [place] mg per 00 every 6 Medical tablet (six) Branch hours as needed (Pain scal 7-10). pantoprazol 2018-0 Yes [id number] 40mg Take 1 [facility] 40 mg EC 8-05 tablet by [facility] tablet 00:00: mouth 2 [place] 00 (two) Medical times Branch daily. ondansetron 2018- Yes [id number] 4mg Take 1 [facility] 4 mg tablet 8-05 tablet by [facility] of 00:00: mouth [place] 00 every 8 Medical (eight) Branch hours as needed for Nausea and Vomiting (N/V). proMETHazin 2018- Yes [id number] 25mg Take 1 [facility] 25 mg 8-05 tablet by [facility] of tablet 00:00: mouth [place] 00 every 6 Medical (six) Branch hours as needed for N/V alternatin g with Ondansetro n. HYDROcodone 2018- Yes [id number] 1{tbl} Take 1 [facility] -acetaminop 8-05 tablet by [facility] hen 7.5-325 00:00: mouth [place] mg per 00 every 6 Medical tablet (six) Branch hours as needed (Pain scal 7-10). pantoprazol Yes [id number] 40mg Take 1 [facility] 40 mg EC 8-05 tablet by [facility] tablet 00:00: mouth 2 [place] 00 (two) Medical times Branch daily. ondansetron 2018- Yes [id number] 4mg Take 1 [facility] 4 mg tablet 8-05 tablet by [facility] of 00:00: mouth [place] 00 every 8 Medical (eight) Branch hours as needed for Nausea and Vomiting (N/V). proMETHazin 2018-0 Yes [id number] 25mg Take 1 [facility] 25 mg 8-05 tablet by [facility] of tablet 00:00: mouth [place] 00 every 6 Medical (six) Branch hours as needed for N/V alternatin g with Ondansetro n. HYDROcodone 2019-0 Yes [id number] 1{tbl} Take 1 [facility] -acetaminop 8-05 tablet by [facility] of hen 7.5-325 00:00: mouth [place] mg per 00 every 6 Medical tablet (six) Branch hours as needed (Pain scal 7-10). pantoprazol 2019-0 Yes [id number] 40mg Take 1 [facility] 40 mg EC 8-05 tablet by [facility] tablet 00:00: mouth 2 [place] 00 (two) Medical times Branch daily. ondansetron 2018- Yes [id number] 4mg Take 1 [facility] 4 mg tablet 8-05 tablet by [facility] of 00:00: mouth [place] 00 every 8 Medical (eight) Branch hours as needed for Nausea and Vomiting (N/V). proMETHazin 2018- Yes [id number] 25mg Take 1 [facility] 25 mg 8-05 tablet by [facility] tablet 00:00: mouth [place] 00 every 6 Medical (six) Branch hours as needed for N/V alternatin g with Ondansetro n. HYDROcodone Yes [id number] 1{tbl} Take 1 [facility] -acetaminop 8-05 tablet by [facility] hen 7.5-325 00:00: mouth [place] mg per 00 every 6 Medical tablet (six) Branch hours as needed (Pain scal 7-10). pantoprazol Yes [id number] 40mg Take 1 [facility] 40 mg EC 8-05 tablet by [facility] tablet 00:00: mouth 2 (two) Medical times Branch daily. ondansetron Yes [id number] 4mg Take 1 [facility] 4 mg tablet 8-05 tablet by [facility] of 00:00: mouth [place] 00 every 8 Medical (eight) Branch hours as needed for Nausea and Vomiting (N/V). proMETHazin 2018- Yes [id number] 25mg Take 1 [facility] 25 mg 8-05 tablet by [facility] of tablet 00:00: mouth [place] 00 every 6 Medical (six) Branch hours as needed for N/V alternatin g with Ondansetro n. HYDROcodone 2018- Yes [id number] 1{tbl} Take 1 [facility] -acetaminop 8-05 tablet by [facility] hen 7.5-325 00:00: mouth [place] mg per 00 every 6 Medical tablet (six) Branch hours as needed (Pain scal 7-10). pantoprazol 2018-0 Yes [id number] 40mg Take 1 [facility] 40 mg EC 8-05 tablet by [facility] tablet 00:00: mouth 2 [place] 00 (two) Medical times Branch daily. ondansetron 2018- Yes [id number] 4mg Take 1 [facility] 4 mg tablet 8-05 tablet by [facility] of 00:00: mouth [place] 00 every 8 Medical (eight) Branch hours as needed for Nausea and Vomiting (N/V). proMETHazin 2019- Yes [id number] 25mg Take 1 [facility] 25 mg 8-05 tablet by [facility] of tablet 00:00: mouth [place] 00 every 6 Medical (six) Branch hours as needed for N/V alternatin g with Ondansetro n. HYDROcodone 2018- Yes [id number] 1{tbl} Take 1 [facility] -acetaminop 8-05 tablet by [facility] hen 7.5-325 00:00: mouth [place] mg per 00 every 6 Medical tablet (six) Branch hours as needed (Pain scal 7-10). pantoprazol Yes [id number] 40mg Take 1 [facility] 40 mg EC 8-05 tablet by [facility] tablet 00:00: mouth 2 [place] 00 (two) Medical times Branch daily. ondansetron Yes [id number] 4mg Take 1 [facility] 4 mg tablet 8-05 tablet by [facility] of 00:00: mouth [place] 00 every 8 Medical (eight) Branch hours as needed for Nausea and Vomiting (N/V). proMETHazin 2018- Yes [id number] 25mg Take 1 [facility] 25 mg 8-05 tablet by [facility] of tablet 00:00: mouth [place] 00 every 6 Medical (six) Branch hours as needed for N/V alternatin g with Ondansetro n. HYDROcodone 2018- Yes [id number] 1{tbl} Take 1 [facility] -acetaminop 8-05 tablet by [facility] of hen 7.5-325 00:00: mouth [place] mg per 00 every 6 Medical tablet (six) Branch hours as needed (Pain scal 7-10). pantoprazol 2018-0 Yes [id number] 40mg Take 1 [facility] 40 mg EC 8-05 tablet by [facility] tablet 00:00: mouth 2 [place] 00 (two) Medical times Branch daily. ondansetron 2019-0 Yes [id number] 4mg Take 1 [facility] 4 mg tablet 8-05 tablet by [facility] of 00:00: mouth [place] 00 every 8 Medical (eight) Branch hours as needed for Nausea and Vomiting (N/V). proMETHazin 2018- Yes [id number] 25mg Take 1 [facility] 25 mg 8-05 tablet by [facility] of tablet 00:00: mouth [place] 00 every 6 Medical (six) Branch hours as needed for N/V alternatin g with Ondansetro n. HYDROcodone Yes [id number] 1{tbl} Take 1 [facility] -acetaminop 8-05 tablet by [facility] of hen 7.5-325 00:00: mouth [place] mg per 00 every 6 Medical tablet (six) Branch hours as needed (Pain scal 7-10). pantoprazol Yes [id number] 40mg Take 1 [facility] 40 mg EC 8-05 tablet by [facility] of tablet 00:00: mouth 2 [place] 00 (two) Medical times Branch daily. ondansetron Yes [id number] 4mg Take 1 [facility] 4 mg tablet 8-05 tablet by [facility] of 00:00: mouth [place] 00 every 8 Medical (eight) Branch hours as needed for Nausea and Vomiting (N/V). proMETHazin Yes [id number] 25mg Take 1 [facility] 25 mg 8-05 tablet by [facility] of tablet 00:00: mouth [place] 00 every 6 Medical (six) Branch hours as needed for N/V alternatin g with Ondansetro n. HYDROcodone Yes [id number] 1{tbl} Take 1 [facility] -acetaminop 8-05 tablet by [facility] of hen 7.5-325 00:00: mouth [place] mg per 00 every 6 Medical tablet (six) Branch hours as needed (Pain scal 7-10). pantoprazol Yes [id number] 40mg Take 1 [facility] 40 mg EC 8-05 tablet by [facility] tablet 00:00: mouth 2 [place] 00 (two) Medical times Branch daily. ondansetron Yes [id number] 4mg Take 1 [facility] 4 mg tablet 8-05 tablet by [facility] of 00:00: mouth [place] 00 every 8 Medical (eight) Branch hours as needed for Nausea and Vomiting (N/V). proMETHazin Yes [id number] 25mg Take 1 [facility] 25 mg 8-05 tablet by [facility] tablet 00:00: mouth [place] 00 every 6 Medical (six) Branch hours as needed for N/V alternatin g with Ondansetro n. HYDROcodone Yes [id number] 1{tbl} Take 1 [facility] -acetaminop 8-05 tablet by [facility] of hen 7.5-325 00:00: mouth [place] mg per 00 every 6 Medical tablet (six) Branch hours as needed (Pain scal 7-10). pantoprazol Yes [id number] 40mg Take 1 [facility] 40 mg EC 8-05 tablet by [facility] tablet 00:00: mouth 2 [place] 00 (two) Medical times Branch daily. ondansetron 2018- Yes [id number] 4mg Take 1 [facility] 4 mg tablet 8-05 tablet by [facility] of 00:00: mouth [place] 00 every 8 Medical (eight) Branch hours as needed for Nausea and Vomiting (N/V). proMETHazin Yes [id number] 25mg Take 1 [facility] 25 mg 8-05 tablet by [facility] tablet 00:00: mouth [place] 00 every 6 Medical (six) Branch hours as needed for N/V alternatin g with Ondansetro n. HYDROcodone Yes [id number] 1{tbl} Take 1 [facility] -acetaminop 8-05 tablet by [facility] hen 7.5-325 00:00: mouth [place] mg per 00 every 6 Medical tablet (six) Branch hours as needed (Pain scal 7-10). pantoprazol Yes [id number] 40mg Take 1 [facility] 40 mg EC 8-05 tablet by [facility] tablet 00:00: mouth 2 [place] 00 (two) Medical times Branch daily. ondansetron Yes [id number] 4mg Take 1 [facility] 4 mg tablet 8-05 tablet by ity of 00:00: mouth [place] 00 every 8 Medical (eight) Branch hours as needed for Nausea and Vomiting (N/V). proMETHazin 2019- Yes [id number] 25mg Take 1 [facility] e 25 mg 8-05 tablet by ity of tablet 00:00: mouth [place] 00 every 6 Medical (six) Branch hours as needed for N/V alternatin g with Ondansetro n. HYDROcodone Yes [id number] 1{tbl} Take 1 Univers -acetaminop 8-05 tablet by ity of hen 7.5-325 00:00: mouth [place] mg per 00 every 6 Medical tablet (six) Branch hours as needed (Pain scal 7-10). pantoprazol 2019-0 Yes [id number] 40mg Take 1 [facility] e 40 mg EC 8-05 tablet by ity of tablet 00:00: mouth 2 [place] 00 (two) Medical times Branch daily. ondansetron 2019-0 Yes [id number] 4mg Take 1 Univers 4 mg tablet 8-05 tablet by ity of 00:00: mouth [place] 00 every 8 Medical (eight) Branch hours as needed for Nausea and Vomiting (N/V). proMETHazin 2019-0 Yes [id number] 25mg Take 1 [facility] e 25 mg 8-05 tablet by ity of tablet 00:00: mouth [place] 00 every 6 Medical (six) Branch hours as needed for N/V alternatin g with Ondansetro n. HYDROcodone 2018- Yes [id number] 1{tbl} Take 1 Univers -acetaminop 8-05 tablet by ity of hen 7.5-325 00:00: mouth [place] mg per 00 every 6 Medical tablet (six) Branch hours as needed (Pain scal 7-10). pantoprazol 2018- Yes [id number] 40mg Take 1 [facility] e 40 mg EC 8-05 tablet by ity of tablet 00:00: mouth 2 00 (two) Medical times Branch daily. ondansetron 2018-0 Yes [id number] 4mg Take 1 [facility] 4 mg tablet 8-05 tablet by ity of 00:00: mouth [place] 00 every 8 Medical (eight) Branch hours as needed for Nausea and Vomiting (N/V). proMETHazin 2018-0 Yes [id number] 25mg Take 1 [facility] e 25 mg 8-05 tablet by ity of tablet 00:00: mouth [place] 00 every 6 Medical (six) Branch hours as needed for N/V alternatin g with Ondansetro n. HYDROcodone 2019-0 Yes [id number] 1{tbl} Take 1 Univers -acetaminop 8-05 tablet by ity of hen 7.5-325 00:00: mouth [place] mg per 00 every 6 Medical tablet (six) Branch hours as needed (Pain scal 7-10). pantoprazol 2019-0 Yes [id number] 40mg Take 1 [facility] e 40 mg EC 8-05 tablet by ity of tablet 00:00: mouth 2 [place] 00 (two) Medical times Branch daily. proMETHazin Yes [id number] 25mg Take 1 [facility] e 25 mg 8-05 tablet by ity of tablet 00:00: mouth [place] 00 every 6 Medical (six) Branch hours as needed for N/V alternatin g with Ondansetro n. HYDROcodone Yes [id number] 1{tbl} Take 1 Univers -acetaminop 8-05 tablet by ity of hen 7.5-325 00:00: mouth [place] mg per 00 every 6 Medical tablet (six) Branch hours as needed (Pain scal 7-10). pantoprazol Yes [id number] 40mg Take 1 [facility] e 40 mg EC 8-05 tablet by ity of tablet 00:00: mouth 2 [place] 00 (two) Medical times Branch daily. proMETHazin Yes [id number] 25mg Take 1 [facility] e 25 mg 8-05 tablet by ity of tablet 00:00: mouth [place] 00 every 6 Medical (six) Branch hours as needed for N/V alternatin g with Ondansetro n. HYDROcodone Yes [id number] 1{tbl} Take 1 Univers -acetaminop 8-05 tablet by ity of hen 7.5-325 00:00: mouth [place] mg per 00 every 6 Medical tablet (six) Branch hours as needed (Pain scal 7-10). pantoprazol Yes [id number] 40mg Take 1 [facility] e 40 mg EC 8-05 tablet by ity of tablet 00:00: mouth 2 [place] 00 (two) Medical times Branch daily. proMETHazin Yes [id number] 25mg Take 1 [facility] e 25 mg 8-05 tablet by ity of tablet 00:00: mouth [place] 00 every 6 Medical (six) Branch hours as needed for N/V alternatin g with Ondansetro n. HYDROcodone Yes [id number] 1{tbl} Take 1 Univers -acetaminop 8-05 tablet by ity of hen 7.5-325 00:00: mouth [place] mg per 00 every 6 Medical tablet (six) Branch hours as needed (Pain scal 7-10). pantoprazol Yes [id number] 40mg Take 1 [facility] e 40 mg EC 8-05 tablet by ity of tablet 00:00: mouth 2 [place] 00 (two) Medical times Branch daily. proMETHazin Yes [id number] 25mg Take 1 [facility] e 25 mg 8-05 tablet by ity of tablet 00:00: mouth [place] 00 every 6 Medical (six) Branch hours as needed for N/V alternatin g with Ondansetro n. HYDROcodone Yes [id number] 1{tbl} Take 1 Univers -acetaminop 8-05 tablet by ity of hen 7.5-325 00:00: mouth [place] mg per 00 every 6 Medical tablet (six) Branch hours as needed (Pain scal 7-10). pantoprazol Yes [id number] 40mg Take 1 [facility] e 40 mg EC 8-05 tablet by ity of tablet 00:00: mouth 2 [place] 00 (two) Medical times Branch daily. proMETHazin Yes [id number] 25mg Take 1 [facility] e 25 mg 8-05 tablet by ity of tablet 00:00: mouth [place] 00 every 6 Medical (six) Branch hours as needed for N/V alternatin g with Ondansetro n. HYDROcodone Yes [id number] 1{tbl} Take 1 Univers -acetaminop 8-05 tablet by ity of hen 7.5-325 00:00: mouth [place] mg per 00 every 6 Medical tablet (six) Branch hours as needed (Pain scal 7-10). HYDROcodone 2021- No [id number] 1{tbl} Take 1 Univers -acetaminop 8-05 05-27 tablet by it y of hen 7.5-325 00:00: 00:00 [place] mg per 00 :00 every 6 Medical tablet (six) Branch hours as needed (Pain scal 7-10). pantoprazol 2020- No [id number] 40mg Take 1 [facility] e 40 mg EC 8-05 04-05 tablet by ity of tablet 00:00: 00:00 mouth 2 [place] 00 :00 (two) Medical times Branch daily. proMETHazin 2020- No [id number] 25mg Take 1 [facility] e 25 mg 8-05 04-05 tablet by ity of tablet 00:00: 00:00 mouth [place] 00 :00 every 6 Medical (six) Branch hours as needed for N/V alternatin g with Ondansetro n. pantoprazol 2020- No [id number] 40mg Take 1 [facility] e 40 mg EC 11-17 tablet by ity of tablet 00:00: 00:00 mouth 2 [place] 00 :00 (two) Medical times Branch daily. proMETHazin 2020- No [id number] 25mg Take 1 [facility] e 25 mg 11-17-05 tablet by ity of tablet 00:00: 00:00 mouth [place] 00 :00 every 6 Medical (six) Branch hours as needed for N/V alternatin g with Ondansetro n. HYDROcodone Yes 1{tbl} 1 tablet, Univers -acetaminop 11-16 Oral, ity of hen (NORCO) 19:23: Q6HPRN, [place] as 10-325 mg 44 Starting Medica l tablet 1 [place] 11/16/18 Branc h tablet at 1423, Until Discontinu ed, Routine, Pain (scale 4-6), Pain (scale 7-10) citalopram Yes 10mg 10 mg, Unive rs (CELEXA) 8 Oral, ity of tablet 10 14:00: DAILY, [place] mg 00 First dose Medical on [place] [facility] 11/16/18 at 0900, Until Discontinu ed, Routine losartan Yes 100mg 100 mg, Unive rs (COZAAR) 8- Oral, ity of tablet 100 14:00: DAILY, [place] mg 00 First dose Medical on [place] [facility] 11/16/18 at 0900, Until Discontinu ed lipase-prot Yes 3{capsu 3 capsule, Univers ease-amylas 11-16 le} Oral, TID ity of e (CREON) 13:00: MEALS, [place] 12,000-38,0 00 First dose Me dical 00 -60,000 on [facility] unit 11/16/18 at capsule 3 0800, capsule Until Discontinu ed FENTanyl PF 2018- No 25ug 25 mcg, Un yuo (SUBLIMAZE 11-16 Slow IV ity o f (PF)) 12:38: 19:23 Push, [place] injection 00 :28 Q6HPRN, Medical 25 mcg Starting Branch 11/16/18 at 0738, Until [place] 11/16/18 at 1423, Routine, Pain (scale 7-10) baclofen 2018- Yes 10mg 10 mg, Univers (LIORESAL) 8-04 Oral, TID, ity of tablet 10 05:45: First dose [place] mg 00 on Count Includes [facility] 11/16/18 at Branch 0045, Until Discontinu ed, Routine QUEtiapine 2018- Yes 100mg 100 mg, Uni vers (SEROQUEL) 8-04 Oral, QHS, ity of tablet 100 02:00: First dose [place] mg 00 on [facility] 11/15/18 at Branch 2100, Until Discontinu ed, Routine divalproex 2018- Yes 125mg 125 mg, Uni vers (DEPAKOTE) 8-04 Oral, QHS, ity of EC tablet 02:00: First dose [place] 125 mg 00 on [facility] 11/15/18 at Branch 2100, Until Discontinu ed, Routine proMETHazin 2019- No 25mg 25 mg, Uni vers e 11-16 08-04 Oral, ity of (PHENERGAN) 01:15: 00:46 ONCE, 1 [place] tablet 25 00 :00 dose, [facility] Medic al mg 11/15/18 at Branch 2015, Routine gabapentin 2018- Yes 300mg 300 mg, Uni vers (NEURONTIN) 8- Oral, BID, it y of capsule 300 01:00: First dose [place] mg 00 on [facility] 11/15/18 at Branch 2000, Until Discontinu ed, Routine lactated 2019- No 1000mL at 150 Univ ers ringers IV 11-15- mL/hr, ity of infusion 23:45: 11:44 1,000 mL, [place] 1,000 mL 00 :00 IV Medical Infusion, Branch CONTINUOUS , Starting [facility] 11/15/18 at 1845, Until [place] 11/16/18 at 0644, Routine HYDROcodone 2018- 2019- No 1{tbl} Take 1 Tab Univers [...] 11-15 Oral, ity of (TYLENOL) 22:41: Q6HPRN, [place] tablet 650 56 Starting Medic al mg [...] Branch 11/15/18 at 1045, Routine ondansetron 2018- 2019- No 4mg 4 mg, Slow Univers (ZOFRAN 11-15 IV Push, ity of (PF)) 15:45: 14:55 ONCE, 1 [place] injection 4 00 :00 dose, Sat Med ical mg 11/15/18 at Branch 1045, [place] traMADol 2019-0 2019- No [id number] 50mg Take 1 Univers (ULTRAM) 50 10-31 [...] with Bran ch meals. dicyclomine 2018- No [id number] 20mg Take 1 Univers (BENTYL) 20 09-09-03 tablet by it y of mg tablet 00:00: 00:00 mouth 4 [place] :[place] (four) Medical times Branch daily as needed for Abdominal pain. ondansetron 2018- No [id number] 4mg Take 1 Univers (ZOFRAN) 4 09-09-03 tablet by ity of mg tablet 00:00: 00:00 mouth [place] 00 :00 every 8 Medical (eight) Branch hours as needed for Nausea and Vomiting (N/V). amLODIPine 2019- No [id number] 5mg Take 2 Univers 2.5 mg 07-21-03 tablets by ity of tablet 00:00: 00:00 mouth at [place] 00 :00 bedtime. Medical Branch proMETHazin 2019- No [id number] 25mg Take 1 Univers e 25 mg 07-21-03 tablet by ity of tablet 00:00: 00:00 mouth [place] 00 :00 every 6 Medical (six) Branch hours as needed for Nausea and Vomiting (N/V). famotidine 2017-04- No 20mg Take 1 Univ ers (PEPCID) 20 2- 08-03 tablet by it y of mg tablet 00:00: 00:00 mouth 2 [place] 00 :[place] (two) Medical times Branch daily. furosemide 2015-04- No 20mg Take 1 Univ ers (LASIX) 20 05-01 08- tablet by ity of mg tablet 00:00: 00:00 mouth [place] 00 :00 every Medical morning. Branch KCL 2015-04- No 20meq Take 1 Univers (KLOR-CON 05-01- tablet by ity of M20) 20 mEq 00:00: 00:00 [place] tablet 00 :00 daily. Medical Branch dicyclomine 2018- No 20mg Take 1 Uni vers (BENTYL) 20 - 08- tablet by it y of mg tablet 00:00: 00:00 mouth 4 [place] 00 :[place] (four) Medical times Branch daily. ondansetron 2014-04- No 4mg Take 1 Tab Univers (ZOFRAN, 05-02 by mouth ity of HYDROCHLORI 00:00: 00:00 every 8 [place],) 4 mg 00 :00 (eight) Medical tablet hours. Branch Losartan Losartan Yes [place] 1 tablet Common Potassium Potassium Spiri t [facility] Lexapro Lexapro Yes [place] 1 tablet Co mmon [facility] Seroquel XR Seroquel XR Yes [place] 1 tablet Common in the [facility] evening [facility] Phenergan Phenergan Yes [place] one tablet Common [facility] Doxycycline Doxycycline Yes [place] 1 capsule Common Hyclate Hyclate [facility] Azithromyci Azithromyci Yes [place] 2 tablets Common n n on the first day, [facility] [address] [facility] daily for Medical 4 days Center Rob[place]in-750 Rob[place]in-750 Yes [place] 1 tablet Common [facility] Flonase Flonase Yes [place] 2 spray in Common each Spirit nostril [facility] Diazepam Diazepam Yes [place] 1 tablet Common as needed [facility] PredniSONE PredniSONE Yes [place] 2 tablet Common daily x 5 Spirit days then - [facility] one tablet [facility] daily x 5 [facility] days Medical [place] Gabapentin Gabapentin Yes [place] 1 capsule Common [facility] Losartan Losartan Yes [place] TAKE 1 Co mmon Potassium Potassium TABLET BY Spirit MOUTH - [facility] EVERY DAY [facility] Losartan Losartan No 1{table QD Losartan [...] 2 MG HCl 2 MG tiZANidine tiZANidine 3- No 1{table BID tiZANidine HCl 2 MG HCl 2 MG 01-08 t_as_ne HCl 2 MG 00:00 eded} :00 tiZANidine tiZANidine 3- No 1{table BID tiZANidine HCl 2 MG HCl 2 MG -08 t_as_ne HCl 2 MG 00:00 eded} :00 tiZANidine tiZANidine 3- No 1{table BID tiZANidine HCl 2 MG HCl 2 MG 01-08 t_as_ne HCl 2 MG 00:00 eded} :00 tiZANidine tiZANidine 3- No 1{table BID tiZANidine HCl 2 MG HCl 2 MG 01-08 t_as_ne HCl 2 MG 00:00 eded} :00 tiZANidine tiZANidine 2022- No 1{table BID tiZANidine HCl 2 MG HCl 2 MG 04-22 t_as_ne HCl 2 MG 00:00 eded} :00 tiZANidine tiZANidine 2021- No BID tiZANidine HCl 2 MG HCl 2 MG 12-13 HCl 2 MG 00:00 :00 Immunizations Ordered Filled Immunization Date Status Comments [facility] e Immunization Name Name Flucelvax - Flucelvax - 2021-04-03 Completed Common Spiri t - multidose vial multidose vial 10:16:00 [facility] Flucelvax - Flucelvax - 2021-04-03 Completed Common Spiri t - multidose vial multidose vial 10:16:00 [facility] Flucelvax - Flucelvax - 2021-04-03 Completed Common Spiri t - multidose vial multidose vial 10:16:00 [facility] Flucelvax - Flucelvax - 2021-04-03 Completed Common Spiri t - multidose vial multidose vial 10:16:00 [facility] Flucelvax - Flucelvax - 2021-04-03 Completed Common Spiri t - multidose vial multidose vial 10:16:00 [facility] Flucelvax - Flucelvax - 2021-04-03 Completed Common Spiri t - multidose vial multidose vial 10:16:00 [facility] Flucelvax - Flucelvax - 2021-04-03 Completed Common Spiri t - multidose vial multidose vial 10:16:00 [facility] Flucelvax - Flucelvax - 2021-04-03 Completed Common Spiri t - multidose vial multidose vial 10:16:00 [facility] Flucelvax - Flucelvax - 2021-04-03 Completed Common Spiri t - multidose vial multidose vial 10:16:00 [facility] Flucelvax - Flucelvax - 2021-04-03 Completed Common Spiri t - multidose vial multidose vial 10:16:00 [facility] Flucelvax - Flucelvax - 2021-04-03 Completed Common Spiri t - multidose vial multidose vial 10:16:00 [facility] Flucelvax - Flucelvax - 2021-04-03 Completed Common Spiri t - multidose vial multidose vial 10:16:00 [facility] Flucelvax - Flucelvax - 2021-04-03 Completed Common Spiri t - multidose vial multidose vial 10:16:00 [facility] Flucelvax - Flucelvax - 2021-04-03 Completed Common Spiri t - multidose vial multidose vial 10:16:00 [facility] Flucelvax - Flucelvax - 2021-04-03 Completed Common Spiri t - multidose vial multidose vial 10:16:00 [facility] Flucelvax - Flucelvax - 2021-04-03 Completed Common Spiri t - multidose vial multidose vial 10:16:00 [facility] Flucelvax - Flucelvax - 2021-04-03 Completed Common Spiri t - multidose vial multidose vial 10:16:00 [facility] Flucelvax - Flucelvax - 2021-04-03 Completed Common Spiri t - multidose vial multidose vial 10:16:00 [facility] Flucelvax - Flucelvax - 2021-04-03 Completed Common Spiri t - multidose vial multidose vial 10:16:00 [facility] Flucelvax - Flucelvax - 2021-04-03 Completed Common Spiri t - multidose vial multidose vial 10:16:00 [facility] Flucelvax - Flucelvax - 2021-04-03 Completed Common Spiri t - multidose vial multidose vial 10:16:00 [facility] Flucelvax - Flucelvax - 2021-04-03 Completed Common Spiri t - multidose vial multidose vial 10:16:00 [facility] Flucelvax - Flucelvax - 2021-04-03 Completed Common Spiri t - multidose vial multidose vial 10:16:00 [facility] Flucelvax - Flucelvax - 2021-04-03 Completed Common Spiri t - multidose vial multidose vial 10:16:00 [facility] Flucelvax - Flucelvax - 2021-04-03 Completed Common Spiri t - multidose vial multidose vial 10:16:00 [facility] Flucelvax - Flucelvax - 2021-04-03 Completed Common Spiri t - multidose vial multidose vial 10:16:00 [facility] Flucelvax - Flucelvax - 2021-04-03 Completed Common Spiri t - multidose vial multidose vial 10:16:00 [facility] Flucelvax - Flucelvax - 2021-04-03 Completed Common Spiri t - multidose vial multidose vial 10:16:00 [facility] Flucelvax - Flucelvax - 2021-04-03 Completed Common Spiri t - multidose vial multidose vial 10:16:00 [facility] Flucelvax - Flucelvax - 2021-04-03 Completed Common Spiri t - multidose vial multidose vial 10:16:00 [facility] Flu Injectable MDCK 2021-04-03 Completed Unive rsity [...] of Quadrivalent 00:00:00 [place] Medica l Branch SARS-COV-2 COVID-19 2021-03-25 Completed Unive rsity of MODERNA BOOSTER 00:00:00 [facility] ical VACCINE Branch SARS-COV-2 COVID-19 [...] [facility] VACCINE Branch SARS-COV-2 COVID-19 2020-05-22 Completed Unive rsity of MODERNA 12+ YRS 00:00:00 [facility] VACCINE Branch SARS-COV-2 COVID-19 2020-05-22 Completed Unive rsity of MODERNA 12+ YRS 00:00:00 [facility] VACCINE Branch SARS-COV-2 COVID-19 2020-05-22 Completed Unive rsity of MODERNA 12+ YRS 00:00:00 [facility] VACCINE Branch Influenza Virus 2013-02-27 Completed Universit y of Vaccine 00:00:00 [facility] Influenza Virus 2013-02-27 Completed Universit y of Vaccine 00:00:00 [facility] Influenza Virus 2013-02-27 Completed Universit y of Vaccine 00:00:00 [facility] Influenza Virus 2013-02-27 Completed Universit y of Vaccine 00:00:00 [facility] Influenza Virus 2013-02-27 Completed Universit y of Vaccine 00:00:00 [facility] Influenza Virus 2013-02-27 Completed Universit y of Vaccine 00:00:00 [facility] Influenza Virus 2013-02-27 Completed Universit y of Vaccine 00:00:00 [facility] Influenza Virus 2013-02-27 Completed Universit y of Vaccine 00:00:00 [facility] Influenza Virus 2013-02-27 Completed Universit y of Vaccine 00:00:00 [facility] Influenza Virus 2013-02-27 Completed Universit y of Vaccine 00:00:00 [facility] Influenza Virus 2013-02-27 Completed Universit y of Vaccine 00:00:00 [facility] Influenza Virus 2013-02-27 Completed Universit y of Vaccine 00:00:00 [facility] Influenza Virus 2013-02-27 Completed Universit y of Vaccine 00:00:00 [facility] Influenza Virus 2013-02-27 Completed Universit y of Vaccine 00:00:00 [facility] Influenza Virus 2013-02-27 Completed Universit y of Vaccine 00:00:00 [facility] Influenza Virus 2013-02-27 Completed Universit y of Vaccine 00:00:00 [facility] Influenza Virus 2013-02-27 Completed Universit y of Vaccine 00:00:00 [facility] Influenza Virus 2013-02-27 Completed Universit y of Vaccine 00:00:00 [facility] Influenza Virus 2013-02-27 Completed Universit y of Vaccine 00:00:00 [facility] Influenza Virus 2013-02-27 Completed Universit y of Vaccine 00:00:00 [facility] Influenza Virus 2013-02-27 Completed Universit y of Vaccine 00:00:00 [facility] Influenza Virus 2013-02-27 Completed Universit y of Vaccine 00:00:00 [facility] Influenza Virus 2013-02-27 Completed Universit y of Vaccine 00:00:00 [facility] Influenza Virus 2013-02-27 Completed Universit y of Vaccine 00:00:00 [facility] Influenza Virus 2013-02-27 Completed Universit y of Vaccine 00:00:00 [facility] Influenza Virus 2013-02-27 Completed Universit y of Vaccine 00:00:00 [facility] Influenza Virus 2013-02-27 Completed Universit y of Vaccine 00:00:00 [facility] Influenza Virus 2013-02-27 Completed Universit y of Vaccine 00:00:00 [facility] Influenza Virus 2013-02-27 Completed Universit y of Vaccine 00:00:00 [facility] Influenza Virus 2013-02-27 Completed Universit y of Vaccine 00:00:00 [facility] Influenza Virus 2013-02-27 Completed Universit y of Vaccine 00:00:00 [facility] Influenza Virus 2013-02-27 Completed Universit y of Vaccine 00:00:00 [facility] Influenza Virus 2013-02-27 Completed Universit y of Vaccine 00:00:00 [facility] Influenza Virus 2013-02-27 Completed Universit y of Vaccine 00:00:00 [facility] Influenza Virus 2013-02-27 Completed Universit y of Vaccine 00:00:00 [facility] Influenza Virus 2013-02-27 Completed Universit y of Vaccine 00:00:00 [facility] Influenza Virus 2013-02-27 Completed Universit y of Vaccine 00:00:00 [facility] Influenza Virus 2013-02-27 Completed Universit y of Vaccine 00:00:00 [facility] Influenza Virus 2013-02-27 Completed Universit y of Vaccine 00:00:00 [facility] Influenza Virus 2013-02-27 Completed Universit y of Vaccine 00:00:00 [facility] Influenza Virus 2013-02-27 Completed Universit y of Vaccine 00:00:00 [facility] Influenza Virus 2013-02-27 Completed Universit y of Vaccine 00:00:00 [facility] Influenza Virus 2013-02-27 Completed Universit y of Vaccine 00:00:00 [facility] Influenza Virus 2013-02-27 Completed Universit y of Vaccine 00:00:00 [facility] Influenza Virus 2013-02-27 Completed Universit y of Vaccine 00:00:00 [facility] Influenza Virus 2013-02-27 Completed Universit y of Vaccine 00:00:00 [facility] Influenza Virus 2013-02-27 Completed Universit y of Vaccine 00:00:00 [facility] Influenza Virus 2013-02-27 Completed Universit y of Vaccine 00:00:00 [facility] Influenza Virus 2013-02-27 Completed Universit y of Vaccine 00:00:00 [facility] Influenza Virus 2013-02-27 Completed Universit y of Vaccine 00:00:00 [facility] Influenza Virus 2013-02-27 Completed Universit y of Vaccine 00:00:00 [facility] Influenza Virus 2013-02-27 Completed Universit y of Vaccine 00:00:00 [facility] Influenza Virus 2013-02-27 Completed Universit y of Vaccine 00:00:00 [facility] Influenza Virus 2013-02-27 Completed Universit y of Vaccine 00:00:00 [facility] Influenza Virus 2013-02-27 Completed Universit y of Vaccine 00:00:00 [facility] Influenza Virus 2013-02-27 Completed Universit y of Vaccine 00:00:00 [facility] Influenza Virus 2013-02-27 Completed Universit y of Vaccine 00:00:00 [facility] Influenza Virus 2013-02-27 Completed Universit y of Vaccine 00:00:00 [facility] Influenza Virus 2013-02-27 Completed Universit y of Vaccine 00:00:00 [facility] Influenza Virus 2013-02-27 Completed Universit y of Vaccine 00:00:00 [facility] Influenza Virus 2013-02-27 Completed Universit y of Vaccine 00:00:00 [facility] Influenza Virus 2013-02-27 Completed Universit y of Vaccine 00:00:00 [facility] Influenza Virus 2013-02-27 Completed Universit y of Vaccine 00:00:00 [facility] Influenza Virus 2013-02-27 Completed Universit y of Vaccine 00:00:00 [facility] Influenza Virus 2013-02-27 Completed Universit y of Vaccine 00:00:00 [facility] Influenza Virus 2013-02-27 Completed Universit y of Vaccine 00:00:00 [facility] Influenza Virus 2013-02-27 Completed Universit y of Vaccine 00:00:00 [facility] Influenza Virus 2013-02-27 Completed Universit y of Vaccine 00:00:00 [facility] Influenza Virus 2013-02-27 Completed Universit y of Vaccine 00:00:00 [facility] Influenza Virus 2013-02-27 Completed Universit y of Vaccine 00:00:00 [facility] Influenza Virus 2013-02-27 Completed Universit y of Vaccine 00:00:00 [facility] Influenza Virus 2013-02-27 Completed Universit y of Vaccine 00:00:00 [place] [facility] Influ[facility] Virus 2013-02-27 Completed [facility]:00[facility]00 [facility] Influenza Virus 2013-02-27 Completed [facility] 00[facility]00:00 [facility] Influenza Virus 2013-02-27 Completed [facility] 00:00:00 [facility] Influenza Virus 2013-02-27 Completed [facility] Vaccine 00:00:00 [facility] Influenza TIV (IM) 2013-02-[address] [facility] 00:00:00 [facility] Influenza TIV (IM) 2013-02-[address] [facility] 00:00:00 [facility] Influenza TIV (IM) 2013-02-[address] [facility] 00:00:00 [facility] Influenza TIV (IM) 2013-02-[address] [facility] 00[facility]00:00 [facility] Influenza TIV (IM) 2013-02-[address] [facility] 00[facility]00:00 [facility] Influenza TIV (IM) 2013-02-[address] [facility] 00[facility]00:00 [facility] Influenza TIV (IM) 2013-02-[address] [facility] 00[facility]00:00 [facility] Influenza TIV (IM) 2013-02-[address] [facility] 00:00:00 [facility] Influenza TIV (IM) 2013-02-[address] [facility] 00:00:00 [facility] Influenza TIV (IM) 2013-02-[address] [facility] 00:00:00 [facility] Vital Signs Vital Name Observation Time Observation Value Comments Source WEIGHT 2020-09-05 85.548 kg 19:05:00 WEIGHT 2020-08-28 83.9 kg 04:41:00 WEIGHT 2020-08-27 84.959 kg 05:27:00 WEIGHT 2020-08-26 85.821 kg 02:50:00 HEIGHT 2020-08-26 152.4 cm 02:50:00 Systolic blood 2022-07-31 103 mm[Hg] [facility] pressure 20:07:00 [facility] Diastolic blood 2022-07-31 73 mm[Hg] [facility] pressure 20:07:00 [facility] Heart rate 2022-07-31 60 /min [facility] 20:07:00 [facility] Body temperature 2022-07-31 36.22 Roro [facility] 20:07:00 [facility] Respiratory rate 2022-07-31 14 /min [facility] 20:07:00 [facility] Oxygen saturation 2022-07-31 99 /min [facility] in Arterial blood 20:07:00 [facility] Pulse oximetry [facility] Body weight 2022-07-31 56.473 kg [facility] 14:00:00 [facility] BMI 2022-07-31 24.31 kg/m2 [facility] 14:00:00 [facility] Body height 2022-07-31 152.4 cm [facility] 03:13:00 [facility] Systolic blood 2022-04-26 144 mm[Hg] [facility] pressure 18:08:00 [facility] Diastolic blood 2022-04-26 97 mm[Hg] [facility] pressure 18:08:00 [facility] Heart rate 2022-04-26 66 /min [facility] 18:08:00 [facility] Body temperature 2022-04-26 35.78 Roro [facility] 18:08:00 [facility] Respiratory rate 2022-04-26 18 /min [facility] 18:08:00 [facility] Oxygen saturation 2022-04-26 99 /min [facility] in Arterial blood 18:08:00 [facility] Pulse oximetry [facility] Body weight 2022-04-26 66.361 kg [facility] of 09:30:00 [facility] BMI 2022-04-26 28.57 kg/m2 [facility] 09:30:00 [facility] Body height 2022-04-26 152.4 cm [facility] 03:57:00 [facility] Systolic blood 2022-04-08 120 mm[Hg] [facility] pressure 19:03:00 [facility] Diastolic blood 2022-04-08 80 mm[Hg] [facility] f pressure 19:03:00 [facility] Heart rate 2022-04-08 90 /min [facility] 19:03:00 [facility] Body temperature 2022-04-08 36.89 Roro [facility] 19:03:00 [facility] Respiratory rate 2022-04-08 20 /min [facility] 19:03:00 [facility] Body height 2022-04-08 152.4 cm University :03:00 [facility] Body weight 2022-04-08 72.576 kg University of :03:00 [facility] BMI 2022-04-08 31.25 kg/m2 University of :03:00 [facility] Oxygen saturation 2022-04-08 100 /min [facility] in Arterial blood 19:03:00 [facility] by Pulse oximetry [place] height 2022-02-22 60 [in_i] [facility] 14:00:00 [facility] weight 2022-02-22 151.6 [lb_av] [facility] 14:00:00 [facility] temperature 2022-02-22 97.2 [degF] [facility] 14:00:00 [facility] bmi 2022-02-22 29.6 kg/m2 [facility] - 14:00:00 [facility] blood pressure 2022-02-22 132 mm[Hg] [facility] - systolic 14:00:00 [facility] blood pressure 2022-02-22 84 mm[Hg] [facility] - diastolic 14:00:00 [facility] Systolic blood 2022-02-06 147 mm[Hg] [facility] pressure 21:55:00 [facility] Diastolic blood 2022-02-06 102 mm[Hg] [facility] o f pressure 21:55:00 [facility] Heart rate 2022-02-06 82 /min [facility] 21:55:00 [facility] Body temperature 2022-02-06 36.28 [place]oro [facility] 21:55:00 [facility] Respiratory rate 2022-02-06 18 /min [facility] 21:55:00 [facility] Oxygen saturation 2022-02-06 99 /min University in Arterial blood 21:55:00 [facility] Pulse oximetry [facility] Body weight 2022-02-06 75.479 kg University of 08:24:00 [facility] BMI 2022-02-06 32.50 kg/m2 [facility] 08:24:00 [facility] Body height 2022-02-03 152.4 cm [facility] 22:37:00 [facility] Systolic blood 2022-01-27 141 mm[Hg] [facility] pressure 00:37:00 [facility] Diastolic blood 2022-01-27 92 mm[Hg] [facility] pressure 00:37:00 [facility] Heart rate 2022-01-27 73 /min [facility] 00:37:00 [facility] Respiratory rate 2022-01-27 16 /min [facility] 00:37:00 [facility] Oxygen saturation 2022-01-27 98 /min [facility] in Arterial blood 00:37:00 [facility] Pulse oximetry [facility] Body weight 2022-01-26 72.122 kg [facility] of 20:27:00 [facility] BMI 2022-01-26 31.05 kg/m2 [facility] 20:27:00 [facility] Body temperature 2022-01-26 37 Roro [facility] 20:26:00 [facility] Body height 2022-01-26 152.4 cm [facility] 20:26:00 [facility] Systolic blood 2021-11-02 159 mm[Hg] [facility] pressure 13:00:00 [facility] Diastolic blood 2021-11-02 98 mm[Hg] [facility] pressure 13:00:00 [facility] Heart rate 2021-11-02 90 /min [facility] 13:00:00 [facility] Respiratory rate 2021-11-02 14 /min [facility] 13:00:00 [facility] Oxygen saturation 2021-11-02 97 /min [facility] in Arterial blood 13:00:00 [facility] Pulse oximetry [facility] Body temperature 2021-11-02 37.06 Roro [facility] 09:49:00 [facility] Body height 2021-11-02 152.4 cm [facility] of 09:49:00 [facility] Body weight 2021-11-02 77.111 kg [facility] of 09:49:00 [facility] BMI 2021-11-02 33.20 kg/m2 [facility] of 09:49:00 [facility] Heart rate 2021-09-29 63 /min [facility] 15:42:00 [facility] Respiratory rate 2021-09-29 18 /min [facility] of 15:42:00 [facility] Oxygen saturation 2021-09-29 99 /min [facility] in Arterial blood 15:42:00 [facility] brandy by Pulse oximetry Branch Systolic blood 2021-09-29 124 mm[Hg] [facility] pressure 15:40:00 [facility] Diastolic blood 2021-09-29 85 mm[Hg] [facility] pressure 15:40:00 [facility] Body temperature 2021-09-29 36.39 Roro [facility] 14:41:00 [facility] Body height 2021-09-20 152.4 cm [facility] of 15:00:00 [facility] Body weight 2021-09-20 78.5 kg University of 15:00:00 [facility] BMI 2021-09-20 33.80 kg/m2 [facility] of 15:00:00 [facility] Systolic blood 2021-09-29 138 mm[Hg] [facility] pressure 15:15:00 [facility] Diastolic blood 2021-09-29 80 mm[Hg] [facility] pressure 15:15:00 [facility] Heart rate 2021-09-29 63 /min [facility] of 15:15:00 [facility] Respiratory rate 2021-09-29 11 /min [facility] 15:15:00 [facility] Oxygen saturation 2021-09-29 99 /min [facility] in Arterial blood 15:15:00 [facility] by Pulse oximetry [place] Body temperature 2021-09-29 36.39 Roro [facility] 14:41:00 [facility] Body height 2021-09-20 152.4 cm University of 15:00:00 [facility] Body weight 2021-09-20 78.5 kg University of 15:00:00 [facility] BMI 2021-09-20 33.80 kg/m2 [facility] of 15:00:00 [facility] Respiratory rate 2021-09-29 10 /min [facility] 14:31:00 [facility] height 2021-09-21 62.00 [in_i] [facility] 09:20:00 [facility] weight 2021-09-21 179 [lb_av] [facility] 09:20:00 [facility] temperature 2021-09-21 97.4 [degF] [facility] - :20:00 [facility] bmi 2021-09-21 32.74 kg/m2 [facility] 09:20:00 [facility] oximetry 2021-09-21 100 % [facility] 09:20:00 [facility] respiratory rate 2021-09-21 15 /min [facility] 09:20[facility]00 [facility] blood pressure 2021-09-21 130 mm[Hg] [facility] - systolic 09:20:00 [facility] blood pressure 2021-09-21 82 mm[Hg] [facility] - diastolic 09:20:00 [facility] Systolic blood 2021-09-08 112 mm[Hg] [facility] pressure 21:35:00 [facility] Diastolic blood 2021-09-08 77 mm[Hg] [facility] pressure 21:35:00 [facility] Heart rate 2021-09-08 64 /min [facility] of 21:35:00 [facility] Body temperature 2021-09-08 36.22 Roro [facility] 21:35:00 [facility] Respiratory rate 2021-09-08 18 /min [facility] of 21:35:00 [facility] Oxygen saturation 2021-09-08 100 /min [facility] in Arterial blood 21:35:00 [facility] by Pulse oximetry Branch Body height 2021-09-02 152.4 cm [facility] of 00:59:00 [facility] Body weight 2021-09-02 78.5 kg [facility] of 00:59:00 [facility] BMI 2021-09-02 33.80 kg/m2 [facility] of 00:59:00 [facility] Systolic blood 2021-08-27 169 mm[Hg] [facility] pressure 20:00:00 [facility] Diastolic blood 2021-08-27 103 mm[Hg] [facility] f pressure 20:00:00 [facility] Heart rate 2021-08-27 66 /min [facility] 20:00:00 [facility] Respiratory rate 2021-08-27 11 /min [facility] of 20:00:00 [facility] Oxygen saturation 2021-08-27 98 /min University in Arterial blood 20:00:00 [facility] by Pulse oximetry Branch Body temperature 2021-08-27 36.17 Roro Simultaneous [facility] of 15:50:00 filing. User may [place] [facility] not have seen Branch previous data. Body height 2021-08-27 152.4 cm University of 15:50:00 [facility] Body weight 2021-08-27 81.647 kg University of 15:50:00 [facility] BMI 2021-08-27 35.15 kg/m2 [facility] of 15:50:00 [facility] height 2021-08-07 62.00 [in_i] [facility] - 11:40:00 [facility] weight 2021-08-07 176.2 [lb_av] [facility] - 11:40:00 [facility] temperature 2021-08-07 98.0 [degF] [facility] - 11:40:00 [facility] bmi 2021-08-07 32.22 kg/m2 [facility] - 11:40:00 [facility] oximetry 2021-08-07 100 % [facility] - 11:40:00 [facility] respiratory rate 2021-08-07 18 /min [facility] it - 11:40:00 [facility] blood pressure 2021-08-07 132 mm[Hg] [facility] - systolic 11:40:00 [facility] blood pressure 2021-08-07 82 mm[Hg] [facility] - diastolic 11:40:00 [facility] Systolic blood 2021-07-29 154 mm[Hg] [facility] pressure 16:16:00 [facility] Diastolic blood 2021-07-29 91 mm[Hg] [facility] o f pressure 16:16:00 [facility] Heart rate 2021-07-29 92 /min [facility] 16:16:00 [facility] Body temperature 2021-07-29 36.44 Roro [facility] 16:16:00 [facility] Respiratory rate 2021-07-29 16 /min [facility] of 16:16:00 [facility] Oxygen saturation 2021-07-29 98 /min [facility] in Arterial blood 16:16:00 [facility] by Pulse oximetry [place] Body weight 2021-07-28 86.63 kg University of 18:00:00 [facility] BMI 2021-07-28 37.30 kg/m2 [facility] 18:00:00 [facility] Body height 2021-07-24 152.4 cm [facility] 00:00:00 [facility] Systolic blood 2021-07-04 141 mm[Hg] [facility] pressure 18:05:00 [facility] Diastolic blood 2021-07-04 95 mm[Hg] [facility] pressure 18:05:00 [facility] Heart rate 2021-07-04 64 /min [facility] of 18:05:00 [facility] Respiratory rate 2021-07-04 11 /min [facility] 18:05:00 [facility] Oxygen saturation 2021-07-04 96 /min [facility] in Arterial blood 18:05:00 [facility] by Pulse oximetry Branch Body temperature 2021-07-04 36.39 Roro [place] of 17:48:00 [facility] Body height 2021-07-03 152.4 cm University of 19:51:00 [facility] Body weight 2021-07-03 81.6 kg University of 19:51:00 [facility] BMI 2021-07-03 35.13 kg/m2 [facility] of 19:51:00 [facility] Systolic blood 2021-07-04 141 mm[Hg] [facility] pressure 15:45:00 [facility] Diastolic blood 2021-07-04 97 mm[Hg] [facility] pressure 15:45:00 [facility] Heart rate 2021-07-04 81 /min [facility] of 15:45:00 [facility] Body temperature 2021-07-04 36.39 Roro [facility] 15:45:00 [facility] Respiratory rate 2021-07-04 20 /min [facility] of 15:45:00 [facility] Oxygen saturation 2021-07-04 100 /min [facility] in Arterial blood 15:45:00 [facility] by Pulse oximetry Branch Body height 2021-07-03 152.4 cm University of 19:51:00 [facility] Body weight 2021-07-03 81.6 kg [facility] of 19:51:00 [facility] BMI 2021-07-03 35.13 kg/m2 [facility] 19:51:00 [facility] height 2021-06-15 62.00 [in_i] [facility] 08:40:00 [facility] weight 2021-06-15 189 [lb_av] [facility] 08:40:00 [facility] temperature 2021-06-15 97.3 [degF] [facility] - 08:40:00 [facility] bmi 2021-06-15 34.56 kg/m2 [facility] - 08:40:00 [facility] oximetry 2021-06-15 98 % [facility] - 08:40:00 [facility] respiratory rate 2021-06-15 18 /min [facility] - 08:40:00 [facility] blood pressure 2021-06-15 148 mm[Hg] [facility] - systolic 08:40:00 [facility] blood pressure 2021-06-15 92 mm[Hg] [facility] - diastolic 08:40:00 [facility] Systolic blood 2021-06-04 164 mm[Hg] [facility] pressure 04:00:00 [facility] Diastolic blood 2021-06-04 104 mm[Hg] [facility] pressure 04:00:00 [facility] Heart rate 2021-06-04 64 /min [facility] of 04:00:00 [facility] Oxygen saturation 2021-06-04 98 /min [facility] in Arterial blood 04:00:00 [facility] brandy by Pulse oximetry Branch Respiratory rate 2021-06-04 11 /min [facility] of 03:00:00 [facility] Body temperature 2021-06-03 35.89 Roro [facility] of 19:49:00 [facility] Body height 2021-06-03 152.4 cm [facility] of 19:49:00 [facility] Body weight 2021-06-03 81.647 kg [facility] of 19:49:00 [facility] BMI 2021-06-03 35.15 kg/m2 [facility] of 19:49:00 [facility] Systolic blood 2021-05-22 151 mm[Hg] [facility] pressure 07:00:00 [facility] Diastolic blood 2021-05-22 97 mm[Hg] [facility] pressure 07:00:00 [facility] Heart rate 2021-05-22 93 /min [facility] 07:00:00 [facility] Oxygen saturation 2021-05-22 96 /min [facility] in Arterial blood 07:00:00 [facility] Pulse oxim[facility] Body temperature 2021-05-22 37.61 [place] [facility] 05:24:00 [facility] Respiratory rate 2021-05-22 20 /min [facility] of 05:24:00 [facility] Body height 2021-05-22 152.4 cm University of 05:24:00 [facility] Body weight 2021-05-22 81.647 kg University of 05:24:00 [facility] BMI 2021-05-22 35.15 kg/m2 University of 05:24:00 [facility] Systolic blood 2021-05-18 139 mm[Hg] [facility] pressure 15:16:00 [facility] Diastolic blood 2021-05-18 86 mm[Hg] [facility] pressure 15:16:00 [facility] Heart rate 2021-05-18 85 /min [facility] of 15:16:00 [facility] Body temperature 2021-05-18 36.39 [place] [facility] 15:16:00 [facility] Respiratory rate 2021-05-18 18 /min [facility] of 15:16:00 [facility] Body height 2021-05-18 152.4 cm University of 15:16:00 [facility] Body weight 2021-05-18 87.862 kg University of 15:16:00 [facility] BMI 2021-05-18 37.83 kg/m2 [facility] of 15:16:00 [facility] Oxygen saturation 2021-05-18 97 /min [facility] in Arterial blood 15:16:00 [facility] brandy by Pulse oximetry Branch Systolic blood 2021-04-15 163 mm[Hg] [facility] pressure 19:38:00 [facility] Diastolic blood 2021-04-15 105 mm[Hg] [facility] pressure 19:38:00 [facility] Heart rate 2021-04-15 98 /min [facility] of 19:38:00 [facility] Body temperature 2021-04-15 37.06 [place] [facility] 19:38:00 [facility] Respiratory rate 2021-04-15 18 /min [facility] of 19:38:00 [facility] Body height 2021-04-15 152.4 cm [facility] of 19:38:00 [facility] Body weight 2021-04-15 81.647 kg [facility] of 19:38:00 [facility] BMI 2021-04-15 35.15 kg/m2 [facility] of 19:38:00 [facility] Oxygen saturation 2021-04-15 97 /min [facility] in Arterial blood 19:38:00 [facility] Pulse oxim[facility] Systolic blood 2021-04-15 140 mm[Hg] [facility] pressure 19:20:00 [facility] Diastolic blood 2021-04-15 98 mm[Hg] [facility] o [facility] pressure 19:20:00 [facility] Heart rate 2021-04-15 109 /min [facility] of 19:20:00 [facility] Body temperature 2021-04-15 36.94 [place] [facility] 19:20:00 [facility] Respiratory rate 2021-04-15 17 /min [facility] of 19:20:00 [facility] Body weight 2021-04-15 84.596 kg University 19:20:00 [facility] BMI 2021-04-15 36.42 kg/m2 University of 19:20:00 [facility] Oxygen saturation 2021-04-15 98 /min [facility] in Arterial blood 19:20:00 [facility] by Pulse oximetry Branch height 2021-04-03 62.00 [in_i] [facility] 09:00:00 [facility] weight 2021-04-03 189 [lb_av] [facility] - 09:00:00 [facility] temperature 2021-04-03 97.2 [degF] [facility] - 09:00:00 [facility] bmi 2021-04-03 34.56 kg/m2 [facility] - 09:00:00 [facility] oximetry 2021-04-03 95 % [facility] - 09:00:00 [facility] blood pressure 2021-04-03 138 mm[Hg] [facility] - systolic 09:00:00 [facility] blood pressure 2021-04-03 48 mm[Hg] [facility] - diastolic 09:00:00 [facility] Systolic blood 2021-03-26 138 mm[Hg] [facility] pressure 03:00:00 [facility] Diastolic blood 2021-03-26 89 mm[Hg] [facility] o f pressure 03:00:00 [facility] Heart rate 2021-03-26 75 /min University 03:00:00 [facility] Respiratory rate 2021-03-26 12 /min [facility] 03:00:00 [facility] Oxygen saturation 2021-03-26 99 /min [facility] in Arterial blood 03:00:00 [facility] by Pulse oximetry [place] Body temperature 2021-03-26 37 Roro [facility] 01:02:09 [facility] Body height 2021-03-26 152.4 cm [facility] 00:10:00 [facility] Body weight 2021-03-26 80.74 kg University of 00:10:00 [facility] BMI 2021-03-26 34.76 kg/m2 [facility] of 00:10:00 [facility] Systolic blood 2021-03-21 173 mm[Hg] [facility] pressure 01:28:00 [facility] Diastolic blood 2021-03-21 104 mm[Hg] [facility] pressure 01:28:00 [facility] Heart rate 2021-03-21 74 /min University 01:28:00 [facility] Respiratory rate 2021-03-21 22 /min University 01:28:00 [facility] Oxygen saturation 2021-03-21 96 /min [facility] in Arterial blood 01:28:00 [facility] by Pulse oximetry Branch Body temperature 2021-03-20 37.17 Roro [facility] 21:59:00 [facility] Body weight 2021-03-20 81.647 kg [facility] 21:59:00 [facility] BMI 2021-03-20 35.15 kg/m2 [facility] 21:59:00 [facility] Systolic blood 2021-02-13 159 mm[Hg] [facility] pressure 02:02:00 [facility] Diastolic blood 2021-02-13 95 mm[Hg] [facility] pressure 02:02:00 [facility] Body temperature 2021-02-13 36.67 Roro [facility] 02:02:00 [facility] Respiratory rate 2021-02-13 17 /min [facility] 02:02:00 [facility] Oxygen saturation 2021-02-13 93 /min [facility] in Arterial blood 02:02:00 [facility] by Pulse oximetry Branch Heart rate 2021-02-13 73 /min [facility] 01:00:00 [facility] Body height 2021-02-12 152.4 cm University of 19:07:00 [facility] Body weight 2021-02-12 86.183 kg University of 19:07:00 [facility] BMI 2021-02-12 37.11 kg/m2 [facility] of 19:07:00 [facility] Systolic blood 2021-01-18 155 mm[Hg] [facility] pressure 05:45:00 [facility] Diastolic blood 2021-01-18 93 mm[Hg] [facility] o f pressure 05:45:00 [facility] Heart rate 2021-01-18 86 /min University 05:45:00 [facility] Respiratory rate 2021-01-18 14 /min [facility] of 05:45:00 [facility] Oxygen saturation 2021-01-18 99 /min [facility] in Arterial blood 05:45:00 [facility] Pulse oximetry [facility] Body temperature 2021-01-18 37.06 [place]oro [facility] 02:32:00 [facility] Body height 2021-01-18 152.4 cm University of 02:32:00 [facility] Body weight 2021-01-18 86.183 kg University of 02:32:00 [facility] BMI 2021-01-18 37.11 kg/m2 [facility] of 02:32:00 [facility] Systolic blood 2021-01-07 117 mm[Hg] [facility] pressure 16:25:00 [facility] Diastolic blood 2021-01-07 79 mm[Hg] [facility] o f pressure 16:25:00 [facility] Heart rate 2021-01-07 85 /min [facility] 16:25:00 [facility] Body temperature 2021-01-07 36.89 [place] [facility] 16:25:00 [facility] Respiratory rate 2021-01-07 16 /min [facility] 16:25:00 [facility] Body height 2021-01-07 152.4 cm [facility] 16:25:00 [facility] Body weight 2021-01-07 77.111 kg [facility] 16:25:00 [facility] BMI 2021-01-07 33.20 kg/m2 [facility] 16:25:00 [facility] Oxygen saturation 2021-01-07 96 /min [facility] in Arterial blood 16:25:00 [facility] Systolic blood 2020-12-30 148 mm[Hg] [facility] of pressure 22:35:00 [facility] Diastolic blood 2020-12-30 107 mm[Hg] [facility] o f pressure 22:35:00 [facility] Heart rate 2020-12-30 78 /min [facility] 22:35:00 [facility] Respiratory rate 2020-12-30 18 /min [facility] 22:35:00 [facility] Oxygen saturation 2020-12-30 97 /min [facility] in Arterial blood 22:35:00 [facility] Body temperature 2020-12-30 37.44 [place] [facility] 18:12:00 [facility] Body height 2020-12-30 152.4 cm [facility] 18:12:00 [facility] Body weight 2020-12-30 77.111 kg [facility] 18:12:00 [facility] BMI 2020-12-30 33.20 kg/m2 [facility] 18:12:00 [facility] Systolic blood 2020-12-30 122 mm[Hg] [facility] pressure 15:13:00 [facility] Diastolic blood 2020-12-30 87 mm[Hg] [facility] pressure 15:13:00 [facility] Heart rate 2020-12-30 83 /min [facility] 15:13:00 [facility] Body temperature 2020-12-30 36.83 [place] [facility] 15:13:00 [facility] Respiratory rate 2020-12-30 18 /min [facility] 15:13:00 [facility] Body height 2020-12-30 152.4 cm [facility] 15:13:00 [facility] Body weight 2020-12-30 83.553 kg [facility] 15:13:00 [facility] BMI 2020-12-30 35.97 kg/m2 [facility] 15:13:00 [facility] Systolic blood 2020-12-16 123 mm[Hg] [facility] pressure 15:21:00 [facility] Diastolic blood 2020-12-16 90 mm[Hg] [facility] pressure 15:21:00 [facility] Heart rate 2020-12-16 81 /min [facility] 15:21:00 [facility] Body temperature 2020-12-16 36.83 [place] [facility] 15:21:00 [facility] Respiratory rate 2020-12-16 18 /min [facility] 15:21:00 [facility] Body height 2020-12-16 152.4 cm [facility] 15:21:00 [facility] Body weight 2020-12-16 83.915 kg [facility] 15:21:00 [facility] BMI 2020-12-16 36.13 kg/m2 [facility] 15:21:00 [facility] Systolic blood 2020-12-16 123 mm[Hg] [facility] pressure 15:21:00 [facility] Diastolic blood 2020-12-16 90 mm[Hg] [facility] pressure 15:21:00 [facility] Heart rate 2020-12-16 81 /min [facility] 15:21:00 [facility] Body temperature 2020-12-16 36.83 [place] [facility] 15:21:00 [facility] Respiratory rate 2020-12-16 18 /min [facility] 15:21:00 [facility] Body height 2020-12-16 152.4 cm [facility] 15:21:00 [facility] Body weight 2020-12-16 83.915 kg [facility] 15:21:00 [facility] BMI 2020-12-16 36.13 kg/m2 [facility] 15:21:00 [facility] Systolic blood 2020-12-05 167 mm[Hg] [facility] pressure 22:45:00 [facility] Diastolic blood 2020-12-05 101 mm[Hg] [facility] pressure 22:45:00 [facility] Heart rate 2020-12-05 76 /min [facility] 22:45:00 [facility] Respiratory rate 2020-12-05 20 /min [facility] 22:45:00 [facility] Oxygen saturation 2020-12-05 97 /min [facility] in Arterial blood 22:45:00 [facility] Body temperature 2020-12-05 37.11 [place] [facility] 19:05:00 [facility] Body weight 2020-12-05 77.111 kg [facility] of 19:05:00 [facility] BMI 2020-12-05 33.20 kg/m2 [facility] 19:05:00 [facility] Systolic blood 2020-10-12 111 mm[Hg] [facility] pressure 20:04:00 [facility] Diastolic blood 2020-10-12 77 mm[Hg] [facility] pressure 20:04:00 [facility] Heart rate 2020-10-12 74 /min [facility] 20:04:00 [facility] Body temperature 2020-10-12 36.06 [place] [facility] 20:04:00 [facility] Respiratory rate 2020-10-12 18 /min [facility] 20:04:00 [facility] Oxygen saturation 2020-10-12 97 /min [facility] in Arterial blood 20:04:00 [facility] Body height 2020-10-12 152.4 cm [facility] of 02:36:00 [facility] Body weight 2020-10-12 84.46 kg [facility] of 02:36:00 [facility] BMI 2020-10-12 36.36 kg/m2 [facility] of 02:36:00 [facility] Systolic blood 2020-10-12 111 mm[Hg] [facility] pressure 20:04:00 [facility] Diastolic blood 2020-10-12 77 mm[Hg] [facility] pressure 20:04:00 [facility] Heart rate 2020-10-12 74 /min [facility] 20:04:00 [facility] Body temperature 2020-10-12 36.06 [place] [facility] 20:04:00 [facility] Respiratory rate 2020-10-12 18 /min [facility] 20:04:00 [facility] Oxygen saturation 2020-10-12 97 /min [facility] in Arterial blood 20:04:00 [facility] Body height 2020-10-12 152.4 cm [facility] of 02:36:00 [facility] Body weight 2020-10-12 84.46 kg [facility] of 02:36:00 [facility] BMI 2020-10-12 36.36 kg/m2 [facility] of 02:36:00 [facility] Systolic blood 2020-10-05 129 mm[Hg] [facility] pressure 01:00:00 [facility] Diastolic blood 2020-10-05 88 mm[Hg] [facility] o f pressure 01:00:00 [facility] Heart rate 2020-10-05 72 /min [facility] 01:00:00 [facility] Respiratory rate 2020-10-05 18 /min [facility] 01:00:00 [facility] Oxygen saturation 2020-10-05 95 /min [facility] in Arterial blood 01:00:00 [facility] Body temperature 2020-10-04 37.72 [place] [facility] 22:44:00 [facility] Body weight 2020-10-04 77.111 kg [facility] of 22:44:00 [facility] BMI 2020-10-04 33.20 kg/m2 [facility] of 22:44:00 [facility] Systolic blood 2020-10-05 129 mm[Hg] [facility] pressure 01:00:00 [facility] Diastolic blood 2020-10-05 88 mm[Hg] [facility] pressure 01:00:00 [facility] Heart rate 2020-10-05 72 /min [facility] 01:00:00 [facility] Respiratory rate 2020-10-05 18 /min [facility] 01:00:00 [facility] Oxygen saturation 2020-10-05 95 /min [facility] in Arterial blood 01:00:00 [facility] Body temperature 2020-10-04 37.72 [place] [facility] 22:44:00 [facility] Body weight 2020-10-04 77.111 kg [facility] of 22:44:00 [facility] BMI 2020-10-04 33.20 kg/m2 [facility] 22:44:00 [facility] WEIGHT 2020-09-05 85.548 kg 19:05:00 WEIGHT 2020-08-28 83.9 kg 04:41:00 WEIGHT 2020-08-27 84.959 kg 05:27:00 WEIGHT 2020-08-26 85.821 kg 02:50:00 HEIGHT 2020-08-26 152.4 cm 02:50:00 Systolic blood 2020-08-05 157 mm[Hg] [facility] pressure 13:12:00 [facility] Diastolic blood 2020-08-05 128 mm[Hg] [facility] pressure 13:12:00 [facility] Heart rate 2020-08-05 95 /min [facility] 13:12:00 [facility] Body temperature 2020-08-05 36.67 [place] [facility] 13:12:00 [facility] Respiratory rate 2020-08-05 18 /min [facility] 13:12:00 [facility] Body weight 2020-08-05 77.111 kg [facility] of 13:12:00 [facility] BMI 2020-08-05 33.20 kg/m2 [facility] 13:12:00 [facility] Oxygen saturation 2020-08-05 98 /min [facility] in Arterial blood 13:12:00 [facility] by [facility] Systolic blood 2020-08-05 157 mm[Hg] [facility] pressure 13:12:00 [facility] Diastolic blood 2020-08-05 128 mm[Hg] [facility] pressure 13:12:00 [facility] Heart rate 2020-08-05 95 /min [facility] 13:12:00 [facility] Body temperature 2020-08-05 36.67 [place] [facility] 13:12:00 [facility] Respiratory rate 2020-08-05 18 /min [facility] 13:12:00 [facility] Body weight 2020-08-05 77.111 kg [facility] 13:12:00 [facility] BMI 2020-08-05 33.20 kg/m2 [facility] 13:12:00 [facility] Oxygen saturation 2020-08-05 98 /min [facility] in Arterial blood 13:12:00 [place] [facility] Systolic blood 2020-07-18 184 mm[Hg] [facility] pressure 13:22:00 [facility] Diastolic blood 2020-07-18 110 mm[Hg] [facility] pressure 13:22:00 [facility] Heart rate 2020-07-18 71 /min [facility] 13:22:00 [facility] Respiratory rate 2020-07-18 18 /min [facility] 13:22:00 [facility] Oxygen saturation 2020-07-18 100 /min [facility] in Arterial blood 13:22:00 [facility] by [facility] Body temperature 2020-07-18 36.56 [place] [facility] 12:49:00 [facility] Body height 2020-07-14 152.4 cm [facility] 16:45:00 [facility] Body weight 2020-07-14 77.111 kg [facility] 16:45:00 [facility] BMI 2020-07-14 33.20 kg/m2 [facility] 16:45:00 [facility] Systolic blood 2020-07-18 184 mm[Hg] [facility] pressure 13:22:00 [facility] Diastolic blood 2020-07-18 110 mm[Hg] [facility] o f pressure 13:22:00 [facility] Heart rate 2020-07-18 71 /min [facility] 13:22:00 [facility] Respiratory rate 2020-07-18 18 /min [facility] 13:22:00 [facility] Oxygen saturation 2020-07-18 100 /min [facility] in Arterial blood 13:22:00 [facility] by [facility] Body temperature 2020-07-18 36.56 [place] [facility] 12:49:00 [facility] Body height 2020-07-14 152.4 cm [facility] 16:45:00 [facility] Body weight 2020-07-14 77.111 kg [facility] 16:45:00 [facility] BMI 2020-07-14 33.20 kg/m2 [facility] 16:45:00 [facility] Systolic blood 2020-07-18 180 mm[Hg] [facility] pressure 12:59:00 [facility] Diastolic blood 2020-07-18 88 mm[Hg] [facility] o f pressure 12:59:00 [facility] Heart rate 2020-07-18 74 /min [facility] 12:59:00 [facility] Respiratory rate 2020-07-18 17 /min [facility] 12:59:00 [facility] Oxygen saturation 2020-07-18 100 /min [facility] in Arterial blood 12:59:00 [facility] Body temperature 2020-07-18 36.56 [place] [facility] 12:49:00 [facility] Body height 2020-07-14 152.4 cm [facility] 16:45:00 [facility] Body weight 2020-07-14 77.111 kg [facility] 16:45:00 [facility] BMI 2020-07-14 33.20 kg/m2 [facility] 16:45:00 [facility] Systolic blood 2020-07-18 180 mm[Hg] [facility] pressure 12:59:00 [facility] Diastolic blood 2020-07-18 88 mm[Hg] [facility] pressure 12:59:00 [facility] Heart rate 2020-07-18 74 /min [facility] 12:59:00 [facility] Respiratory rate 2020-07-18 17 /min [facility] 12:59:00 [facility] Oxygen saturation 2020-07-18 100 /min [facility] in Arterial blood 12:59:00 [facility] Body temperature 2020-07-18 36.56 [place] [facility] 12:49:00 [facility] Body height 2020-07-14 152.4 cm [facility] 16:45:00 [facility] Body weight 2020-07-14 77.111 kg [facility] 16:45:00 [facility] BMI 2020-07-14 33.20 kg/m2 [facility] 16:45:00 [facility] Systolic blood 2020-07-08 187 mm[Hg] [facility] pressure 02:00:00 [facility] Diastolic blood 2020-07-08 102 mm[Hg] [facility] pressure 02:00:00 [facility] Heart rate 2020-07-08 84 /min [facility] 02:00:00 [facility] Respiratory rate 2020-07-08 20 /min [facility] 02:00:00 [facility] Oxygen saturation 2020-07-08 100 /min [facility] in Arterial blood 02:00:00 [facility] Body temperature 2020-07-07 37.22 [place] [facility] 23:45:00 [facility] Body weight 2020-07-07 81.194 kg [facility] of 23:45:00 [facility] BMI 2020-07-07 34.96 kg/m2 [facility] 23:45:00 [facility] Systolic blood 2020-07-08 187 mm[Hg] [facility] pressure 02:00:00 [facility] Diastolic blood 2020-07-08 102 mm[Hg] [facility] pressure 02:00:00 [facility] Heart rate 2020-07-08 84 /min [facility] 02:00:00 [facility] Respiratory rate 2020-07-08 20 /min [facility] 02:00:00 [facility] Oxygen saturation 2020-07-08 100 /min [facility] in Arterial blood 02:00:00 [facility] Body temperature 2020-07-07 37.22 [place] [facility] of :45:00 [facility] Body weight 2020-07-07 81.194 kg [facility] of 23:45:00 [facility] BMI 2020-07-07 34.96 kg/m2 [facility] 23:45:00 [facility] Systolic blood 2020-07-04 168 mm[Hg] [facility] pressure 13:34:00 [facility] Diastolic blood 2020-07-04 94 mm[Hg] [facility] pressure 13:34:00 [facility] Heart rate 2020-07-04 63 /min [facility] 13:34:00 [facility] Oxygen saturation 2020-07-04 100 /min [facility] in Arterial blood 13:34:00 [facility] Respiratory rate 2020-07-04 12 /min [facility] 13:23:00 [facility] Body temperature 2020-07-04 36.72 [place] [facility] 13:03:00 [facility] Body height 2020-07-01 152.4 cm [facility] 17:45:00 [facility] Body weight 2020-07-01 81.647 kg [facility] of 17:45:00 [facility] BMI 2020-07-01 35.15 kg/m2 [facility] 17:45:00 [facility] Systolic blood 2020-07-04 168 mm[Hg] [facility] pressure 13:34:00 [facility] Diastolic blood 2020-07-04 94 mm[Hg] [facility] pressure 13:34:00 [facility] Heart rate 2020-07-04 63 /min [facility] 13:34:00 [facility] Oxygen saturation 2020-07-04 100 /min [facility] in Arterial blood 13:34:00 [facility] Respiratory rate 2020-07-04 12 /min [facility] 13:23:00 [facility] Body temperature 2020-07-04 36.72 [place] [facility] 13:03:00 [facility] Body height 2020-07-01 152.4 cm [facility] 17:45:00 [facility] Body weight 2020-07-01 81.647 kg [facility] of 17:45:00 [facility] BMI 2020-07-01 35.15 kg/m2 [facility] 17:45:00 [facility] Systolic blood 2020-06-20 148 mm[Hg] [facility] pressure 14:33:00 [facility] Diastolic blood 2020-06-20 86 mm[Hg] [facility] pressure 14:33:00 [facility] Heart rate 2020-06-20 70 /min [facility] 14:33:00 [facility] Respiratory rate 2020-06-20 11 /min [facility] 14:33:00 [facility] Oxygen saturation 2020-06-20 98 /min [facility] in Arterial blood 14:33:00 [facility] Body temperature 2020-06-20 36.33 [place] [facility] 14:18:00 [facility] Body height 2020-06-20 152.4 cm [facility] 12:30:00 [facility] Body weight 2020-06-20 81.647 kg [facility] of 12:30:00 [facility] BMI 2020-06-20 35.15 kg/m2 [facility] 12:30:00 [facility] Systolic blood 2020-06-20 148 mm[Hg] [facility] pressure 14:33:00 [facility] Diastolic blood 2020-06-20 86 mm[Hg] [facility] f pressure 14:33:00 [facility] Heart rate 2020-06-20 70 /min [facility] 14:33:00 [facility] Respiratory rate 2020-06-20 11 /min [facility] 14:33:00 [facility] Oxygen saturation 2020-06-20 98 /min [facility] in Arterial blood 14:33:00 [facility] Body temperature 2020-06-20 36.33 [place] [facility] 14:18:00 [facility] Body height 2020-06-20 152.4 cm [facility] 12:30:00 [facility] Body weight 2020-06-20 81.647 kg [facility] of 12:30:00 [facility] BMI 2020-06-20 35.15 kg/m2 [facility] of 12:30:00 [facility] Respiratory rate 2020-06-20 17 /min [facility] 14:12:00 [facility] Respiratory rate 2020-06-20 17 /min [facility] 14:12:00 [facility] Systolic blood 2020-05-07 122 mm[Hg] [facility] pressure 00:05:00 [facility] Diastolic blood 2020-05-07 77 mm[Hg] [facility] f pressure 00:05:00 [facility] Heart rate 2020-05-07 61 /min [facility] of 00:05:00 [facility] Respiratory rate 2020-05-07 17 /min [facility] 00:05:00 [facility] Oxygen saturation 2020-05-07 100 /min [facility] in Arterial blood 00:05:00 [facility] by [facility] Body temperature 2020-05-06 37.06 [place] [facility] 21:17:00 [facility] Body height 2020-05-06 152.4 cm [facility] of 21:17:00 [facility] Body weight 2020-05-06 77.111 kg [facility] of 21:17:00 [facility] BMI 2020-05-06 33.20 kg/m2 [facility] of 21:17:00 [facility] Systolic blood 2020-05-07 122 mm[Hg] [facility] pressure 00:05:00 [facility] Diastolic blood 2020-05-07 77 mm[Hg] [facility] f pressure 00:05:00 [facility] Heart rate 2020-05-07 61 /min [facility] of 00:05:00 [facility] Respiratory rate 2020-05-07 17 /min [facility] 00:05:00 [facility] Oxygen saturation 2020-05-07 100 /min [facility] in Arterial blood 00:05:00 [facility] Body temperature 2020-05-06 37.06 [place] [facility] 21:17:00 [facility] Body height 2020-05-06 152.4 cm [facility] of 21:17:00 [facility] Body weight 2020-05-06 77.111 kg [facility] of 21:17:00 [facility] BMI 2020-05-06 33.20 kg/m2 [facility] of 21:17:00 [facility] Systolic blood 2020-03-26 170 mm[Hg] [facility] pressure 07:00:00 [facility] Diastolic blood 2020-03-26 110 mm[Hg] [facility] o f pressure 07:00:00 [facility] Heart rate 2020-03-26 77 /min [facility] 07:00:00 [facility] Respiratory rate 2020-03-26 18 /min [facility] of 07:00:00 [facility] Oxygen saturation 2020-03-26 96 /min [facility] in Arterial blood 07:00:00 [facility] by [facility] Body temperature 2020-03-26 37.67 [place] of 03:07:00 [facility] Body height 2020-03-26 152.4 cm University of 03:07:00 [facility] Body weight 2020-03-26 77.111 kg [facility] of 03:07:00 [facility] BMI 2020-03-26 33.20 kg/m2 [facility] of 03:07:00 [facility] Systolic blood 2020-03-26 170 mm[Hg] [facility] pressure 07:00:00 [facility] Diastolic blood 2020-03-26 110 mm[Hg] [facility] o f pressure 07:00:00 [facility] Heart rate 2020-03-26 77 /min [facility] 07:00:00 [facility] Respiratory rate 2020-03-26 18 /min [facility] of 07:00:00 [facility] Oxygen saturation 2020-03-26 96 /min [facility] in Arterial blood 07:00:00 [facility] by [facility] Body temperature 2020-03-26 37.67 [place] [facility] 03:07:00 [facility] Body height 2020-03-26 152.4 cm [facility] of 03:07:00 [facility] Body weight 2020-03-26 77.111 kg [facility] of 03:07:00 [facility] BMI 2020-03-26 33.20 kg/m2 [facility] of 03:07:00 [facility] Systolic blood 2020-02-08 134 mm[Hg] [facility] pressure 20:21:00 [facility] Diastolic blood 2020-02-08 94 mm[Hg] [facility] f pressure 20:21:00 [facility] Heart rate 2020-02-08 76 /min [facility] of 20:: [facility] Body temperature 2020-02-08 36.11 [place] [facility] 20:: [facility] Respiratory rate 2020-02-08 17 /min [facility] of 20::00 [facility] Oxygen saturation 2020-02-08 100 /min [facility] in Arterial blood 20:21:00 [facility] by [facility] Body weight 2020-02-03 80.468 kg University of 08:16:00 [facility] BMI 2020-02-03 34.65 kg/m2 University of 08:16:00 [facility] Systolic blood 2020-02-08 134 mm[Hg] [facility] pressure 20:21:00 [facility] Diastolic blood 2020-02-08 94 mm[Hg] [facility] pressure 20:21:00 [facility] Heart rate 2020-02-08 76 /min [facility] of 20::00 [facility] Body temperature 2020-02-08 36.11 [place] [facility] 20::00 [facility] Respiratory rate 2020-02-08 17 /min [facility] of :: [facility] Oxygen saturation 2020-02-08 100 /min [facility] in Arterial blood 20:21:00 [facility] Body weight 2020-02-03 80.468 kg University of 08:16:00 [facility] BMI 2020-02-03 34.65 kg/m2 University of 08:16:00 [facility] Systolic blood 2019-12-18 113 mm[Hg] [facility] of pressure 23:30:00 [facility] Diastolic blood 2019-12-18 76 mm[Hg] [facility] f pressure 23:30:00 [facility] Heart rate 2019-12-18 57 /min [facility] of 23:30:00 [facility] Respiratory rate 2019-12-18 18 /min [facility] of 23:30:00 [facility] Oxygen saturation 2019-12-18 99 /min [facility] in Arterial blood 23:30:00 [facility] by [facility] Body temperature 2019-12-18 36.67 [place] [facility] 20:24:00 [facility] Body height 2019-12-18 152.4 cm University of 20:24: [facility] Body weight 2019-12-18 77.111 kg University of 20:24: [facility] BMI 2019-12-18 33.20 kg/m2 University of 20:24:00 [facility] Systolic blood 2019-12-18 113 mm[Hg] [facility] pressure 23:30:00 [facility] Diastolic blood 2019-12-18 76 mm[Hg] [facility] pressure 23:30:00 [facility] Heart rate 2019-12-18 57 /min [facility] of 23:30:00 [facility] Respiratory rate 2019-12-18 18 /min [facility] of 23:30:00 [facility] Oxygen saturation 2019-12-18 99 /min [facility] in Arterial blood 23:30:00 [facility] Body temperature 2019-12-18 36.67 [place] [facility] 20:24:00 [facility] Body height 2019-12-18 152.4 cm University of 20:24:00 [facility] Body weight 2019-12-18 77.111 kg University of 20:24:00 [facility] BMI 2019-12-18 33.20 kg/m2 University of 20:24:00 [facility] Systolic blood 2019-08-22 159 mm[Hg] University of pressure 04:28:00 [facility] Diastolic blood 2019-08-22 99 mm[Hg] University o f pressure 04:28:00 [facility] Heart rate 2019-08-22 66 /min University of 04:28:00 [facility] Respiratory rate 2019-08-22 18 /min University of 04:28:00 [facility] Oxygen saturation 2019-08-22 95 /min University of in Arterial blood 04:28:00 [facility] by Pulse oximetry Branch Body temperature 2019-08-22 36.61 Roro University of 00:48:43 [facility] Body height 2019-08-22 152.4 cm University of 00:44:00 [facility] Body weight 2019-08-22 86.183 kg University of 00:44:00 [facility] BMI 2019-08-22 37.11 kg/m2 University of 00:44:00 [facility] Systolic blood 2019-08-22 159 mm[Hg] University of pressure 04:28:00 [facility] Diastolic blood 2019-08-22 99 mm[Hg] University o f pressure 04:28:00 [facility] Heart rate 2019-08-22 66 /min University of 04:28:00 [facility] Respiratory rate 2019-08-22 18 /min University of 04:28:00 [facility] Oxygen saturation 2019-08-22 95 /min University of in Arterial blood 04:28:00 [facility] brandy by Pulse oximetry Branch Body temperature 2019-08-22 36.61 Roro University of 00:48:43 [facility] Body height 2019-08-22 152.4 cm University of 00:44:00 [facility] Body weight 2019-08-22 86.183 kg University of 00:44:00 [facility] BMI 2019-08-22 37.11 kg/m2 University of 00:44:00 [facility] Heart rate 2019-06-26 93 /min University of 00:53:00 [facility] Oxygen saturation 2019-06-26 94 /min University of in Arterial blood 00:53:00 [facility] brandy by Pulse oximetry Branch Systolic blood 2019-06-26 149 mm[Hg] University of pressure 00:45:00 [facility] Diastolic blood 2019-06-26 106 mm[Hg] University o f pressure 00:45:00 [facility] Respiratory rate 2019-06-26 16 /min University of 00:45:00 [facility] Body temperature 2019-06-25 37.17 Roro University of 20:48:00 [facility] Body height 2019-06-25 152.4 cm University of 20:48:00 [facility] Body weight 2019-06-25 88.451 kg University of 20:48:00 [facility] BMI 2019-06-25 38.08 kg/m2 University of 20:48:00 [facility] Heart rate 2019-06-26 93 /min University of 00:53:00 [facility] Oxygen saturation 2019-06-26 94 /min University of in Arterial blood 00:53:00 [facility] brandy by Pulse oximetry Branch Systolic blood 2019-06-26 149 mm[Hg] University of pressure 00:45:00 [facility] Diastolic blood 2019-06-26 106 mm[Hg] University o f pressure 00:45:00 [facility] Respiratory rate 2019-06-26 16 /min University of 00:45:00 [facility] Body temperature 2019-06-25 37.17 Roro University of 20:48:00 [facility] Body height 2019-06-25 152.4 cm University of 20:48:00 [facility] Body weight 2019-06-25 88.451 kg University of 20:48:00 [facility] BMI 2019-06-25 38.08 kg/m2 University of 20:48:00 [facility] Systolic blood 2019-06-20 157 mm[Hg] University of pressure 00:30:00 [facility] Diastolic blood 2019-06-20 89 mm[Hg] University o f pressure 00:30:00 [facility] Heart rate 2019-06-20 70 /min University of 00:30:00 [facility] Oxygen saturation 2019-06-20 97 /min University of in Arterial blood 00:30:00 [facility] brandy by Pulse oximetry Branch Respiratory rate 2019-06-20 14 /min University of 00:04:00 [facility] Body height 2019-06-19 152.4 cm University of 19:46:00 [facility] Body weight 2019-06-19 88.451 kg University of 19:46:00 [facility] BMI 2019-06-19 38.08 kg/m2 University of 19:46:00 [facility] Body temperature 2019-06-19 37.06 Roro University of 19:45:00 [facility] Systolic blood 2019-06-20 157 mm[Hg] University of pressure 00:30:00 [facility] Diastolic blood 2019-06-20 89 mm[Hg] University o f pressure 00:30:00 [facility] Heart rate 2019-06-20 70 /min University of 00:30:00 [facility] Oxygen saturation 2019-06-20 97 /min University of in Arterial blood 00:30:00 [facility] by Pulse oximetry Branch Respiratory rate 2019-06-20 14 /min University of 00:04:00 [facility] Body height 2019-06-19 152.4 cm University of 19:46:00 [facility] Body weight 2019-06-19 88.451 kg University of 19:46:00 [facility] BMI 2019-06-19 38.08 kg/m2 University of 19:46:00 [facility] Body temperature 2019-06-19 37.06 Roro University of 19:45:00 [facility] Systolic blood 2019-05-20 141 mm[Hg] University of pressure 02:59:00 [facility] Diastolic blood 2019-05-20 97 mm[Hg] University o f pressure 02:59:00 [facility] Heart rate 2019-05-20 86 /min University of 02:59:00 [facility] Respiratory rate 2019-05-20 16 /min University of 02:59:00 [facility] Oxygen saturation 2019-05-20 94 /min University of in Arterial blood 02:59:00 [facility] brandy by Pulse oximetry Branch Body temperature 2019-05-20 36.61 Roro University of 00:45:32 [facility] [place] Body weight 2019-05-20 81.647 kg University of 00:16:00 [facility] BMI 2019-05-20 35.15 kg/m2 University of 00:16:00 [facility] Systolic blood 2019-05-20 141 mm[Hg] University of pressure 02:59:00 [facility] Diastolic blood 2019-05-20 97 mm[Hg] University o f pressure 02:59:00 [facility] Heart rate 2019-05-20 86 /min University of 02:59:00 [facility] Respiratory rate 2019-05-20 16 /min University of 02:59:00 [facility] Oxygen saturation 2019-05-20 94 /min [facility] in Arterial blood 02:59:00 [facility] by Pulse oximetry Branch Body temperature 2019-05-20 36.61 Roro University of 00:45:32 [facility] Body weight 2019-05-20 81.647 kg University of 00:16:00 [facility] BMI 2019-05-20 35.15 kg/m2 University of 00:16:00 [facility] Systolic blood 2018-12-18 134 mm[Hg] University of pressure 13:38:00 [facility] Diastolic blood 2018-12-18 96 mm[Hg] University o f pressure 13:38:00 [facility] Heart rate 2018-12-18 75 /min University of 13:38:00 [facility] Respiratory rate 2018-12-18 18 /min University of 13:38:00 [facility] Body height 2018-12-18 152.4 cm University of 13:38:00 [facility] Body weight 2018-12-18 88.451 kg University of 13:38:00 [facility] BMI 2018-12-18 38.08 kg/m2 University of 13:38:00 [facility] Systolic blood 2018-12-08 159 mm[Hg] University of pressure 20:03:00 [facility] Diastolic blood 2018-12-08 111 mm[Hg] University o f pressure 20:03:00 [facility] Body height 2018-12-08 152.4 cm University of 20:03:00 [facility] Body weight 2018-12-08 88.451 kg University of 20:03:00 [facility] BMI 2018-12-08 38.08 kg/m2 University of 20:03:00 [facility] Systolic blood 2018-12-05 180 mm[Hg] University of pressure 13:04:00 [facility] Diastolic blood 2018-12-05 110 mm[Hg] University o f pressure 13:04:00 [facility] Heart rate 2018-12-05 74 /min University of 13:04:00 [facility] Respiratory rate 2018-12-05 18 /min University of 12:57:00 [facility] Body height 2018-12-05 152.4 cm University of 12:57:00 [facility] Body weight 2018-12-05 88.451 kg University of 12:57:00 [facility] BMI 2018-12-05 38.08 kg/m2 University of 12:57:00 [facility] Systolic blood 2018-12-01 139 mm[Hg] University of pressure 23:03:00 [facility] Diastolic blood 2018-12-01 72 mm[Hg] University o f pressure 23:03:00 [facility] Heart rate 2018-12-01 64 /min University of 23:03:00 [facility] Respiratory rate 2018-12-01 13 /min University of 22:02:00 [facility] Body temperature 2018-12-01 36.33 Roro University of 19:27:00 [facility] Body height 2018-12-01 152.4 cm University of 19:27:00 [facility] Body weight 2018-12-01 88.451 kg University of 19:27:00 [facility] BMI 2018-12-01 38.08 kg/m2 University of 19:27:00 [facility] Oxygen saturation 2018-12-01 88 /min [facility] in Arterial blood 19:27:[address] [facility] Pulse oximetry Branch Systolic blood 2018-11-17 145 mm[Hg] reported to RN University of pressure 17:00:00 [facility] Diastolic blood 2018-11-17 80 mm[Hg] reported to RN University of pressure 17:00:00 [facility] Heart rate 2018-11-17 54 /min University of 17:00:00 [facility] Body temperature 2018-11-17 36.72 Roro University of 17:00:00 [facility] Respiratory rate 2018-11-17 16 /min University of 17:00:00 [facility] Oxygen saturation 2018-11-17 95 /min University in Arterial blood 17:00:00 [facility] by Pulse oximetry [place] Body height 2018-11-15 152.4 cm [facility] 22:07:00 [facility] Body weight 2018-11-15 88.587 kg [facility] 21:18:00 [facility] BMI 2018-11-15 38.14 kg/m2 [facility] 21:18:00 [facility] Procedures Procedure Date / Time Performing Source Performed Clinician LIPASE 2022-07-31 [facility] 09:45:00 [facility] BASIC METABOLIC PANEL (NA, K, CL, 2022-07-31 [facility] of CO2, GLUCOSE, BUN, CREATININE, CA) 09:45:00 [facility] CBC WITH DIFF 2022-07-31 [facility] of 09:45:00 [facility] URINALYSIS 2022-07-30 Mariana Ramirez of 23:17:[address] [facility] [address] ABDOMEN PELVIS WO CONTRAST 2022-07-30 Mariana Ramirez Un iversity of 23:16:08 [facility] LIPASE 2022-07-30 Mariana Ramirez [place] of 23:12:00 [facility] COMP. METABOLIC PANEL ([id number]) 2022-07-30 Mariana Ramirez iversity of 23:12:00 [facility] CBC WITH DIFF 2022-07-30 Mariana Ramirez of 23:12:00 [facility] PROTHROMBIN TIME / INR 2022-07-30 Mariana Ramirezit y of 23:12:00 [facility] ACTIVATED PARTIAL THRMPLAS KIMANI 2022-07-30 Mariana Ramirez niversity of 23:12:00 [facility] CONSENT/REFUSAL FOR DIAGNOSIS AND 2022-07-30 [facility] 21[facility]55[facility]41 [place] [facility] MR ABDOMEN W WO CONTRAST MRCP 2022-04-26 Rigoberto Menendez Un iversity of 15:53:00 [facility] GAMMA GLUTAMYLTRANSFERASE 2022-04-26 Rigoberto Menendez sity of 10:54:00 [facility] THYROID STIMULATING HORMONE 2022-04-26 Rigoberto Menendez [facility] ersity of 10:54:00 [facility] PHOSPHORUS 2022-04-26 Rigoberto Menendez [place] of 10:53:00 [facility] CREATINE KINASE 2022-04-26 Rigoberto Menendez [place] of 10:53:00 [facility] MAGNESIUM 2022-04-26 [facility] 10:53[facility]00 [facility] COMP. METABOLIC PANEL ([id number]) 2022-04-26 Rigoberto Menendez Un iversity of 10:53:00 [facility] LIPID PANEL ([id number])(TOTAL 2022-04-26 Rigoberto Menendez Univ sity of CHOLESTEROL, TRIGLYCERIDES, HDL) 10:53:00 [facility] CBC WITH DIFF 2022-04-26 Rigoberto Menendez [place] of 10:53:00 [facility] N-TERMINAL PRO-BNP 2022-04-26 [facility] of 10:53:00 [facility] [address] ABDOMEN PELVIS W CONTRAST 2022-04-[address] [facility] versity of 00:12:00 [facility] LIPASE 2022-04-25 Jadyn Skaggs [place] of 23:25:00 [facility] COMP. METABOLIC PANEL ([id number]) 2022-04-25 Jadyn Skaggs iversity of 23:25:00 [facility] CBC WITH DIFF 2022-04-25 Jadyn Skaggs [place] of 23:25:00 [facility] GLYCOSYLATED HEMOGLOBIN (A1C) 2022-04-25 Rigoberto Menendez Un iversity of 23:25:00 [facility] URINALYSIS 2022-04-25 Jadyn Skaggs [place] of 23:25:00 [facility] CONSENT/REFUSAL FOR DIAGNOSIS AND 2022-04-25 Doctor Dung santiago [facility] 22:43:11 [place] [facility] XR HAND 3+ VW RIGHT 2022-04-08 [facility] 19:48:55 [facility] CONSENT/REFUSAL FOR DIAGNOSIS AND 2022-04-08 Doctor Dung santiago [facility] 18:51:24 [place] [facility] COVID-19 (ID NOW RAPID TESTING) 2022-02-06 Levar Robert [facility] 21:14:00 [facility] BASIC METABOLIC PANEL (NA, K, CL, 2022-02-06 Priyank Robert [place] of CO2, GLUCOSE, BUN, CREATININE, CA) 08:31:00 [facility] CBC WITH DIFF 2022-02-06 Lenard Robert [place] of 08:31:00 [facility] XR SMALL BOWEL SERIES 2022-02-05 Valorie Maxwell [place] of 19:21:09 [facility] BASIC METABOLIC PANEL (NA, K, CL, 2022-02-04 [facility] of CO2, GLUCOSE, BUN, CREATININE, CA) 07:56:00 [facility] CBC WITH DIFF 2022-02-04 [facility] of 07:56:00 [facility] URINE CULTURE 2022-02-03 [facility], [facility] of 23:42:00 [facility] HEPATIC FUNCTION PANEL ([id number]) 2022-02-03 [facility] of (ALB,T.PRO,BILI 23:30:00 [facility],BU/BC,ALT,AST,[facility] ABDOMEN PELVIS W CONTRAST 2022-02-03 Nguyễn Montano Uni versity of 17:51:46 [facility] URINE DRUG (IMMUNOASSAY) - 2022-02-[address] [facility] rsity of COMPREHENSIVE DRUG SCREEN 16:01:00 [facility] URINALYSIS 2022-02-03 Nguyễn Montano [facility] 16:01:00 [facility] AMYLASE 2022-02-03 Nguyễn Montano [facility] 16:00:00 [facility] LIPASE 2022-02-03 Nguyễn Montano [facility] 16:00:00 [facility] COMP. METABOLIC PANEL ([id number]) 2022-02-03 Nguyễn Montano Un iversity of 16:00:00 [facility] LIPID PANEL ([id number])(TOTAL 2022-02-03 [facility] sity of CHOLESTEROL, TRIGLYCERIDES, HDL) 16:00:00 [facility] ETHANOL 2022-02-03 Nguyễn Montano [facility] 16:00:00 [facility] SERUM DRUG (IMMUNOASSAY) - 2022-02-03 Nguyễn Montano Unive rsity of COMPREHENSIVE DRUG SCREEN 16:00:00 [facility] CBC WITH DIFF 2022-02-03 Nguyễn Montano [facility] 16:00:00 [facility] CT ABDOMEN PELVIS W CONTRAST 2022-01-26 Meka Hammonds Un iversity of 21:34:36 [facility] LIPASE 2022-01-26 Meka Hammonds [place] of 21:07:00 [facility] COMP. METABOLIC PANEL ([id number]) 2022-01-26 Meka Hammonds U niversity of 21:07:00 [facility] ETHANOL 2022-01-26 Meka Hammonds [facility] 21:07:00 [facility] CBC WITH DIFF 2022-01-26 Meka Hammonds [facility] 21:07:00 [facility] URINALYSIS 2022-01-26 Meka Hammonds [facility] 21:07:00 [facility] URINE DRUG (IMMUNOASSAY) - 2022-01-26 Meka Hammonds [facility] ersity of COMPREHENSIVE DRUG SCREEN W/O 21:07:00 [place] [facility] CONSENT/REFUSAL FOR DIAGNOSIS AND 2022-01-26 [facility] 20:04:49 [place] [facility] INSURANCE CORRESPONDENCE 2022-01-02 Doctor Unasschad, [facility] ersity of 05:01:00 [place] [facility] CT ABDOMEN PELVIS W CONTRAST 2021-11-02 Mariana Ramirez Uni versity of 12:20:54 [facility] LIPASE 2021-11-02 Mariana Ramirez [place] of 10:40:00 [facility] COMP. METABOLIC PANEL ([id number]) 2021-11-02 Mariana Ramirez Un iversity of 10:40:00 [facility] CBC WITH DIFF 2021-11-02 Mariana Ramirez [place] of 10:40:00 [facility] PROTHROMBIN TIME / INR 2021-11-02 Mariana Ramirez Universit y of 10:40:00 [facility] ACTIVATED PARTIAL THRMPLAS KIMANI 2021-11-02 Mariana Ramirez U niversity of 10:40:00 [facility] CONSENT/REFUSAL FOR DIAGNOSIS AND 2021-11-02 Doctor Dung santiago [facility] 09:27:03 [place] [facility] AUTHORIZATION FOR RELEASE OF PHI 2021-10-25 Doctor Padmassclaudia , [place] of 05:01:00 [place] [facility] FL TIME OR (NON-REPORTABLE) 2021-09-29 Zulema Rodriguez [facility] ersity of 14:39:00 [facility] FL TIME OR (NON-REPORTABLE) 2021-09-29 Zulema Rodriguez [facility] ersity of 14:39:00 [facility] FOOT ARTHRODESIS 2021-09-29 Zulema Rodriguez [place] of 12:40:00 [facility] DAY SURGERY - ADC 2021-09-29 Doctor Unassigned, University of 05:01:00 [place] [facility] ASSIGNMENT OF BENEFITS 2021-09-27 Doctor Unassigned, Univer sity of 15:03:24 [place] [facility] EXTERNAL PROVIDER RECORDS 2021-09-20 Doctor Unassigned, Uni versity of 05:01:00 [place] [facility] EXTERNAL PROVIDER RECORDS 2021-09-20 Doctor Unassigned, Uni versity of 05:01:00 [place] [facility] EXTERNAL PROVIDER RECORDS 2021-09-19 Doctor Unassigned, Uni versity of 05:01:00 [place] [facility] EXTERNAL PROVIDER RECORDS 2021-09-19 Doctor Unassigned, Uni versity of 05:01:00 [place] [facility] MAGNESIUM 2021-09-08 [facility] of 09:16:00 [facility] COMP. METABOLIC PANEL ([id number]) 2021-09-08 [facility] iversity of 09:16:00 [facility] CBC WITH DIFF 2021-09-08 [facility] of 09:16:00 [facility] MAGNESIUM 2021-09-07 [facility] of 07:41:00 [facility] HEPATIC FUNCTION PANEL ([id number]) 2021-09-07 [facility] niversity of (ALB,T.PRO,BILI 07:41:00 [facility],BU/BC,ALT,AST,ALK PHOS) [place] BASIC METABOLIC PANEL (NA, K, CL, 2021-09-07 [facility] of CO2, GLUCOSE, BUN, CREATININE, CA) 07:41:00 [facility] CBC WITH DIFF 2021-09-07 [facility] of 07:41:00 [facility] MR ABDOMEN W WO CONTRAST MRCP 2021-09-06 [facility] iversity of 15:50:18 [facility] MAGNESIUM 2021-09-06 [facility] of 09:32:00 [facility] HEPATIC FUNCTION PANEL ([id number]) 2021-09-06 [facility] of (ALB,T.PRO,BILI 09:32:00 [facility],BU/BC,ALT,AST,ALK PHOS) Branch BASIC METABOLIC PANEL (NA, K, CL, 2021-09-06 [facility] of CO2, GLUCOSE, BUN, CREATININE, CA) 09:32:00 [facility] MAGNESIUM 2021-09-05 [facility], [facility] of 08:23:00 [facility] HEPATIC FUNCTION PANEL ([id number]) 2021-09-05 [facility], [facility] niversity of (ALB,T.PRO,BILI 08:23:00 [facility] T,BU/BC,ALT,AST,ALK PHOS) [place] BASIC METABOLIC PANEL (NA, K, CL, 2021-09-05 [facility] CO2, GLUCOSE, BUN, CREATININE, CA) 08:23:00 [facility] CBC WITH DIFF 2021-09-05 [facility] 08:23:00 [facility] MAGNESIUM 2021-09-04 [facility], [facility] 09:15:00 [facility] HEPATIC FUNCTION PANEL ([id number]) 2021-09-04 [facility] niversity of (ALB,T.PRO,BILI 09:15:00 [facility] T,BU/BC,ALT,AST,ALK PHOS) [place] BASIC METABOLIC PANEL (NA, K, CL, 2021-09-04 [facility] of CO2, GLUCOSE, BUN, CREATININE, CA) 09:15:00 [facility] CBC WITH DIFF 2021-09-04 [facility] of 09:15:00 [facility] MAGNESIUM 2021-09-03 [facility] 09:25:00 [facility] COMP. METABOLIC PANEL ([id number]) 2021-09-03 [facility] iversity of 09:25:00 [facility] CBC WITH DIFF 2021-09-03 [facility] 09:25:00 [facility] CMV BY PCR 2021-09-03 [facility] 03:30:00 [facility] HSV 1&2, VZV NAAT 2021-09-03 Nguyễn, [facility] 03:30:00 [facility] ACETAMINOPHEN 2021-09-02 [facility] of 15:34:00 [facility] HEPATITIS B SURFACE ANTIBODY 2021-09-02 [facility], [facility] versity of 15:34:00 [facility] HCV ANTIBODY 2021-09-02 [facility], [facility] of 15:34:00 [facility] HBC ANTIBODY (IGM & IGG) 2021-09-02 [facility], [facility] ity of 15:34:00 [facility] CBC WITH DIFF 2021-09-02 [facility], [facility] of 15:33:00 [facility] EBV QUANTITATIVE PCR 2021-09-02 [facility], [facility] of 15:33:00 [facility] SMOOTH MUSCLE AB,IGG W/REFLEX 2021-09-02 [facility], [facility] iversity of 15:32:00 [facility] PHOSPHORUS 2021-09-02 [facility], [facility] of 15:32:00 [facility] MAGNESIUM 2021-09-02 [facility], [facility] of 15:32:00 [facility] FERRITIN SERUM 2021-09-02 [facility], [facility] of 15:32:00 [facility] CERULOPLASMIN 2021-09-02 [facility], [facility] of 15:32:00 [facility] ALPHA 1 ANTITRYPSIN 2021-09-02 [facility], [facility] o f 15:32:00 [facility] IMMUNOGLOBULIN G 2021-09-02 [facility], [facility] of 15:32:00 [facility] COMP. METABOLIC PANEL ([id number]) 2021-09-02 [facility] iversity of 15:32:00 [facility] ANTI-NUCLEAR ANTIBODY SCREEN 2021-09-02 [facility], [facility] versity of 15:32:00 [facility] HEPATITIS B SURFACE ANTIGEN 2021-09-02 [facility], [facility] ersity of 15:32:00 [facility] HAV ANTIBODY (IGG AND IGM) 2021[facility]09-02 [facility] 15:32:00 [facility] ANTI-NUCLEAR ANTIBODY TITER 2021-09-02 [facility], [facility] ersity of 15:32:00 [facility] ANTI-NUCLEAR ANTIBODY-PATHOLOGIST 2021-09-02 [facility] of INTERPRETATION 15:32:00 [facility] PROTHROMBIN TIME / INR 2021-09-02 [facility] of 15:31:00 [facility] HB ECG ROUTINE & RHYTHM STRIP 2021-09-02 Sheryl Crenshaw Un iversity of 13:42:19 [facility] US ABDOMEN LIMITED 2021-09-02 Sheryl Crenshaw [facility] of 05:27:56 [facility] HB ECG ROUTINE & RHYTHM STRIP 2021-09-01 Jaki Polanco Un iversity of 18:43:41 [facility] XR CHEST 1 VW 2021-09-01 Jaki Polanco [place] of 18:38:41 [facility] LIPASE 2021-09-01 Jaki Polanco [place] of 18:37:00 [facility] MAGNESIUM 2021-09-01 Jaki Polanco [place] of 18:37:00 [facility] TROPONIN I 2021-09-01 Jaki Polanco [place] of 18:37:00 [facility] COMP. METABOLIC PANEL ([id number]) 2021-09-01 Jaki Polanco Un iversity of 18:37:00 [facility] CBC WITH DIFF 2021-09-01 Jaki Polanco [place] of 18:37:00 [facility] URINALYSIS 2021-09-01 Jaki Polanco [place] of 18:37:00 [facility] HOSPITAL ADMISSION 2021-09-01 Doctor Iker, [facility] 05:01:00 [place] [facility] CT ABDOMEN PELVIS W CONTRAST 2021-08-27 Maru Baez [facility] 17:00:42 [facility] URINALYSIS 2021-08-27 Maru Baez [facility] 16:26:00 [facility] LIPASE 2021-08-27 Maru Baez [facility] 15:59:00 [facility] TROPONIN I 2021-08-27 Maru Baez [facility] 15:59:00 [facility] COMP. METABOLIC PANEL ([id number]) 2021-08-27 Maru Baez [facility] 15:59:00 [facility] CBC WITH DIFF 2021-08-27 Maru Baez [facility] 15:59:00 [facility] CONSENT/REFUSAL FOR DIAGNOSIS AND 2021-08-27 Doctor Dung santiago, [facility] 15:44:40 [place] [facility] POCT GLUCOSE (AUTOMATED) 2021-07-28 Pasha Hinojosa [facility] ity of 22:28:00 [facility] RENAL ARTERY DUPLEX - BY VASCULAR 2021-07-28 Jesusita Mederos [place] of LAB 20:54:00 [facility] POCT GLUCOSE (AUTOMATED) 2021-07-28 Pasha Hinojosa ity of 16:45:00 [facility] POCT GLUCOSE (AUTOMATED) 2021-07-28 Pasha Hinojosa ity of 12:52:00 [facility] LIPASE 2021-07-28 Pasha Hinojosa University of 09:31:00 [facility] COMP. METABOLIC PANEL ([id number]) 2021-07-28 Pasha Hinojosa iversity of 09:31:00 [facility] CBC WITH DIFF 2021-07-28 Pasha Hinojosa University of 09:31:00 [facility] POCT GLUCOSE (AUTOMATED) 2021-07-28 Pasha Hinojosa ity of 09:08:00 [facility] POCT GLUCOSE (AUTOMATED) 2021-07-28 Pasha Hinojosa ity of 04:38:00 [facility] POCT GLUCOSE (AUTOMATED) 2021-07-28 Pasha Hinojosa ity of 01:02:00 [facility] POCT GLUCOSE (AUTOMATED) 2021-07-27 Pasha Hinojosa ity of 21:47:00 [facility] POCT GLUCOSE (AUTOMATED) 2021-07-27 Pasha Hinojosa ity of 16:48:00 [facility] POCT GLUCOSE (AUTOMATED) 2021-07-27 Pasha Hinojosa ity of 12:43:00 [facility] MAGNESIUM 2021-07-27 Gatito [facility] of 08:55:00 [facility] BASIC METABOLIC PANEL (NA, K, CL, 2021-07-27 [facility] of CO2, GLUCOSE, BUN, CREATININE, CA) 08:55:00 [facility] CBC WITH DIFF 2021-07-27 Gatito [facility] of 08:55:00 [facility] POCT GLUCOSE (AUTOMATED) 2021-07-27 Pasha Hinojosa ity of 08:47:00 [facility] POCT GLUCOSE (AUTOMATED) 2021-07-27 Pasha Hinojosa ity of 06:48:00 [facility] POCT GLUCOSE (AUTOMATED) 2021-07-27 Pasha Hinojosa [facility] ity of 01:50:00 [facility] POCT GLUCOSE (AUTOMATED) 2021-07-26 Pasha Hinojosa [facility] ity of 21:50:00 [facility] POCT GLUCOSE (AUTOMATED) 2021-07-26 Pasha Hinojosa [facility] ity of 16:50:00 [facility] LIPASE 2021-07-26 [facility] 09:59:00 [facility] MAGNESIUM 2021-07-26 Gatito [facility] of 09:59:00 [facility] BASIC METABOLIC PANEL (NA, K, CL, 2021-07-26 Gatito [facility] of CO2, GLUCOSE, BUN, CREATININE, CA) 09:59:00 [facility] CBC WITH DIFF 2021-07-26 Gatito [facility] of 09:59:00 [facility] EKG-12 LEAD 2021-07-25 Pasha Hinojosa [place] of 23:35:46 [facility] POCT GLUCOSE (AUTOMATED) 2021-07-25 Pasha Hinojosa [facility] ity of 14:19:00 [facility] HEPATIC FUNCTION PANEL ([id number]) 2021-07-25 Jesusita Mederos niversity of (ALB,T.PRO,BILI 12:28:00 [facility] T,BU/BC,ALT,AST,ALK PHOS) [place] BASIC METABOLIC PANEL (NA, K, CL, 2021-07-25 Jesusita Mederos [place] of CO2, GLUCOSE, BUN, CREATININE, CA) 12:28:00 [facility] CBC WITH DIFF 2021-07-25 Jesusita Mederos [place] of 10:59:00 [facility] MAGNESIUM 2021-07-24 Pasha Hinojosa [place] of 10:49:00 [facility] HEPATIC FUNCTION PANEL ([id number]) 2021-07-24 Pasha Hinojosa U niversity of (ALB,T.PRO,BILI 10:49:00 [facility] T,BU/BC,ALT,AST,ALK PHOS) [place] BASIC METABOLIC PANEL (NA, K, CL, 2021-07-24 Brigido Hinojosa [place] of CO2, GLUCOSE, BUN, CREATININE, CA) 10:49:00 [facility] CBC WITH DIFF 2021-07-24 [facility] 09:16:00 [facility] PHOSPHORUS 2021-07-24 [facility] of 00:43:00 [facility] CT ABDOMEN PELVIS W CONTRAST 2021-07-23 Meka Hammonds Un iversity of 22:53:27 [facility] LIPASE 2021-07-23 Meka Hammonds [facility] 21:19:00 [facility] MAGNESIUM 2021-07-23 Meka Hammonds [facility] 21:19:00 [facility] TROPONIN I 2021-07-23 Meka Hammonds [facility] 21:19:00 [facility] COMP. METABOLIC PANEL ([id number]) 2021-07-23 Meka Hammonds U niversity of 21:19:00 [facility] D-DIMER 2021-07-23 Meka Hammonds [facility] 21:19:00 [facility] CBC WITH DIFF 2021-07-23 Meka Hammonds [facility] 21:18:00 [facility] URINALYSIS 2021-07-23 Meka Hammonds [facility] 21:18:00 [facility] XR CHEST 1 VW 2021-07-23 Meka Hammonds [facility] 21:03:00 [facility] HB ECG ROUTINE & RHYTHM STRIP 2021-07-23 Meka Hammonds U niversity of 20:31:58 [facility] CONSENT/REFUSAL FOR DIAGNOSIS AND 2021-07-23 Doctor Dung santiago, [place] of [facility] 20:20:48 [place] [facility] ESOPHAGOGASTRODUODENOSCOPY 2021-07-04 Gulshan Piper rsity of 17:04:00 [facility] EGD (ENDO) 2021-07-04 Jeannie Slade [facility] 16:11:40 [facility] EGD (ENDO) 2021-07-04 Jeannie Slade [facility] 16:11:40 [facility] DAY SURGERY - ADC 2021-07-04 Doctor Padmasschad, [facility] 05:01:00 [place] [facility] EXTERNAL PROVIDER RECORDS 2021-06-23 Doctor Unassigned, Uni versity of 06:01:00 [place] [facility] EXTERNAL PROVIDER RECORDS 2021-06-23 Doctor Unassigned, Uni versity of 06:01:00 [place] [facility] CT ABDOMEN PELVIS W CONTRAST 2021-06-04 Mariana Ramirez Uni versity of 01:33:00 [facility] US GALL BLADDER 2021-06-03 Mariana Ramirez of 23:57:52 [facility] LIPASE 2021-06-03 Mariana Ramirez of 20:30:00 [facility] TROPONIN I 2021-06-03 Mariana Ramirez of 20:30:00 [facility] COMP. METABOLIC PANEL ([id number]) 2021-06-03 Mariana Ramirez iversity of 20:30:00 [facility] CBC WITH DIFF 2021-06-03 Mariana Ramirez of 20:30:00 [facility] PROTHROMBIN TIME / INR 2021-06-03 Mariana Ramirezit y of 20:30:00 [facility] ACTIVATED PARTIAL THRMPLAS KIMANI 2021-06-03 Mariana Ramirez niversity of 20:30:00 [facility] N-TERMINAL PRO-BNP 2021-06-03 Mariana Ramirez of 20:30:00 [facility] COVID-19 (ID NOW RAPID TESTING) 2021-06-03 Mariana Ramirez of 20:30:00 [facility] LACTIC ACID WHOLE BLOOD 2021-06-03 Mariana Ramirezi ty of 20:26:00 [facility] XR CHEST 1 VW 2021-06-03 Mariana Ramirez of 20:15:36 [facility] CONSENT/REFUSAL FOR DIAGNOSIS AND 2021-06-03 Doctor Padmasspramod santiago, [facility] 19:39:18 [place] [facility] EKG-12 LEAD 2021-05-22 Consuelo Avendaño of 06:47:[address] [facility] [address] CHEST PULMONARY ANGIOGRAM 2021-05-22 Consuelo Avendaño Uni versity of 06:08:50 [facility] TROPONIN I 2021-05-22 Consuelo Avendaño of 05:41:00 [facility] COMP. METABOLIC PANEL ([id number]) 2021-05-22 Consuelo Avendaño Un iversity of 05:41:00 [facility] CBC WITH DIFF 2021-05-22 Consuelo Avendaño of 05:41:00 [facility] N-TERMINAL PRO-BNP 2021-05-22 [facility] 05:41:00 [facility] NOTICE OF PRIVACY PRACTICES 2021-05-22 Doctor Iker, U niversity of 05:17:11 [place] [facility] CONSENT/REFUSAL FOR DIAGNOSIS AND 2021-05-22 Doctor Dung santiago, [facility] 05:13:31 [place] [facility] POCT MOLECULAR FLU 2021-05-18 [facility] of 15:26:00 [facility] POCT MOLECULAR STREP 2021-05-18 [facility] of 15:22:00 [facility] COVID-19 (ID NOW RAPID TESTING) 2021-04-15 Jarocho [facility] of 20:37:00 [facility] CT ABDOMEN PELVIS W CONTRAST 2021-04-15 Consuelo Avendaño Uni versity of 20:23:27 [facility] LIPASE 2021-04-15 Jarocho [facility] of 20:23:00 [facility] TROPONIN I 2021-04-15 Kaecofalguni [facility] of 20:23:00 [facility] COMP. METABOLIC PANEL ([id number]) 2021-04-15 Consuelo Avendaño Un iversity of 20:23:00 [facility] CBC WITH DIFF 2021-04-15 [facility] 20:23:00 [facility] URINALYSIS 2021-04-15 Jarocho [facility] of 20:23:00 [facility] CONSENT/REFUSAL FOR DIAGNOSIS AND 2021-04-15 Doctor Dung santiago, [facility] 19:33:08 [place] [facility] CT ABDOMEN PELVIS W CONTRAST 2021-03-26 Consuelo Avendaño Uni versity of 02:08:33 [facility] LIPASE 2021-03-26 Consuelo Avendaño [place] of 00:57:00 [facility] TROPONIN I 2021-03-26 Jarocho [facility] of 00:57:00 [facility] COMP. METABOLIC PANEL ([id number]) 2021-03-26 Consuelo Avendaño Un iversity of 00:57:00 [facility] CBC WITH DIFF 2021-03-26 Jarocho [facility] of 00:57:00 [facility] URINALYSIS 2021-03-26 [facility] 00:57[facility]00 [facility] N-TERMINAL PRO-BNP 2021-03-26 [facility] of 00:57:00 [facility] XR CHEST 1 VW 2021-03-26 [facility] of 00:17:07 [facility] CONSENT/REFUSAL FOR DIAGNOSIS AND 2021-03-25 [facility] 23:45:22 [place] [facility] SARS-COV-2 COVID-19 VACCINE 2021-03-25 Doctor Unassigned, U niversity of BOOSTER,0.25ML,IM (MODERNA) 17:05:57 [place] [facility] COMP. METABOLIC PANEL ([id number]) 2021-03-20 Meka Hammonds U niversity of 23:40:00 [facility] CT ABDOMEN PELVIS W CONTRAST 2021-03-20 Meka Hammonds Un iversity of 23:00:43 [facility] LIPASE 2021-03-20 Meka Hammonds [facility] 22:41:00 [facility] TROPONIN I 2021-03-20 Meka Hammonds [place] of 22:41:00 [facility] CBC WITH DIFF 2021-03-20 Meka Hammonds [place] of 22:41:00 [facility] NOTICE OF PRIVACY PRACTICES 2021-03-20 Doctor Unassigned, U niversity of 21:43:47 [place] [facility] CONSENT/REFUSAL FOR DIAGNOSIS AND 2021-03-20 [facility] 21:43:12 [place] [facility] CT ABDOMEN PELVIS W CONTRAST 2021-02-12 Rosalinda Fisher U niversity of 22:22:23 [facility] LIPASE 2021-02-12 Rosalinda Fisher [place] of 19:54:00 [facility] COMP. METABOLIC PANEL ([id number]) 2021-02-12 Isabelle Dayton [place] of 19:54:00 [facility] CBC WITH DIFF 2021-02-12 Rosalinda Fisher [place] of 19:54:00 [facility] URINALYSIS 2021-02-12 Isabelle [facility] of 19:54:00 [facility] CONSENT/REFUSAL FOR DIAGNOSIS AND 2021-02-12 Doctor Dung santiago [facility] 19:03:31 [place] [facility] COMP. METABOLIC PANEL ([id number]) 2021-01-18 Maru Baez [facility] 04:11:00 [facility] CT ABDOMEN PELVIS W CONTRAST 2021-01-18 Maru Baez [facility] 03:35:25 [facility] LIPASE 2021-01-18 Maru Baez [facility] 02:54:00 [facility] CBC WITH DIFF 2021-01-18 Maru Baez [facility] 02:54:00 [facility] URINALYSIS 2021-01-18 Maru Baez [facility] 02:54:00 [facility] CONSENT/REFUSAL FOR DIAGNOSIS AND 2021-01-18 [facility] 02:23:56 [place] [facility] XR CHEST 2 VW 2021-01-07 [facility] 16:49:00 [facility] COVID-19 (ID NOW RAPID TESTING) 2020-12-30 Maru Baez [facility] 22:02:00 [facility] CT ABDOMEN PELVIS W CONTRAST 2020-12-30 Maru Baez [facility] 18:49:58 [facility] LIPASE 2020-12-30 Maru Baez [facility] 18:29:00 [facility] HEPATIC FUNCTION PANEL ([id number]) 2020-12-30 Maru Baez [facility] (ALB,T.PRO,BILI 18:29:00 [facility],BU/BC,ALT,AST,ALK PHOS) [place] BASIC METABOLIC PANEL (NA, K, CL, 2020-12-30 Jerilyn Baez ra [facility] CO2, GLUCOSE, BUN, CREATININE, CA) 18:29:00 [facility] CBC WITH DIFF 2020-12-30 Maru Baez [facility] 18:29:00 [facility] URINALYSIS 2020-12-30 Maru Beaz [facility] 18:29:00 [facility] CONSENT/REFUSAL FOR DIAGNOSIS AND 2020-12-30 Doctor Dung santiago [facility] 18:01:18 [place] [facility] US PELVIS COMPLETE WITH 2020-12-23 Vira Washburn ty of TRANSVAGINAL 21:36:03 [facility] US GALL BLADDER 2020-12-05 Eliana Poole [place] of 22:39:34 F [facility] LACTIC ACID WHOLE BLOOD 2020-12-05 Eliana Poole [facility] sity of 22:16:00 F [facility] CT ABDOMEN PELVIS W CONTRAST 2020-12-05 Eliana Poole U niversity of 21:23:47 F [facility] ASSIGNMENT OF BENEFITS 2020-12-05 Doctor Unassigned, [facility] sit of 20:53:22 [place] [facility] LIPASE 2020-12-05 Maru Baez [facility] 20:12:00 [facility] COMP. METABOLIC PANEL ([id number]) 2020-12-05 Maru Baez [facility] 20:12:00 [facility] CBC WITH DIFF 2020-12-05 Maru Baez [facility] 20:12:00 [facility] URINALYSIS 2020-12-05 Maru Baez [facility] 20:12:00 [facility] CONSENT/REFUSAL FOR DIAGNOSIS AND 2020-12-05 [facility] 18:56:42 [place] [facility] MAGNESIUM 2020-10-12 [facility] 08:21:00 [facility] HEPATIC FUNCTION PANEL ([id number]) 2020-10-12 [facility], niversity of (ALB,T.PRO,BILI 08:21:00 [facility],BU/BC,ALT,AST,ALK PHOS) Branch LIPID PANEL ([id number])(TOTAL 2020-10-12 [facility] CHOLESTEROL, TRIGLYCERIDES, HDL) 08:21:00 [facility] CBC WITH DIFF 2020-10-12 [facility] 08:21:00 [facility] PROTHROMBIN TIME / INR 2020-10-12 [facility] 08:21:00 [facility] ACTIVATED PARTIAL THRMPLAS KIMANI 2020-10-12 [facility], U niversity of 08:21:00 [facility] HEPATIC FUNCTION PANEL ([id number]) 2020-10-12 [facility], U niversity of (ALB,T.PRO,BILI 03:31:00 [facility] T,BU/BC,ALT,AST,ALK PHOS) [place] BASIC METABOLIC PANEL (NA, K, CL, 2020-10-12 [place], [facility] of CO2, GLUCOSE, BUN, CREATININE, CA) 03:31:00 [facility] COVID-19 (ID NOW RAPID TESTING) 2020-10-11 Mariana Ramirez of 16:15:00 [facility] US GALL BLADDER 2020-10-11 Mariana Ramirez of 15:26:59 [facility] HB ECG ROUTINE & RHYTHM STRIP 2020-10-11 Mariana Ramirez iversity of 13:53:00 [facility] LIPASE 2020-10-11 Mariana Ramirez of 13:49:00 [facility] TROPONIN I 2020-10-11 Mariana Ramirez of 13:49:00 [facility] HEPATIC FUNCTION PANEL ([id number]) 2020-10-11 Mariana Ramirez niversity of (ALB,T.PRO,BILI 13:49:00 [facility] T,BU/BC,ALT,AST,ALK PHOS) [place] BASIC METABOLIC PANEL (NA, K, CL, 2020-10-11 Florina Ramirez University of CO2, GLUCOSE, BUN, CREATININE, CA) 13:49:00 [facility] CBC WITH DIFF 2020-10-11 Mariana Ramirez of 13:49:00 [facility] URINALYSIS 2020-10-11 Mariana Ramirez [place] of 13:49:00 [facility] CONSENT/REFUSAL FOR DIAGNOSIS AND 2020-10-11 Doctor Dung santiago, [facility] 13:29:15 [place] [facility] COVID-19 (ID NOW RAPID TESTING) 2020-10-04 Maisha Reyes [place] of 23:19:00 [facility] URINALYSIS 2020-10-04 Maisha Reyes [place] of 23:18:00 [facility] LIPASE 2020-10-04 Maisha Reyes [place] of 23:17:00 [facility] COMP. METABOLIC PANEL ([id number]) 2020-10-04 Maisha Reyes Un iversity of 23:17:00 [facility] CBC WITH DIFF 2020-10-04 Maisha Reyes of 23:17:00 [facility] CONSENT/REFUSAL FOR DIAGNOSIS AND 2020-08-05 Doctor Dung santiago, [facility] 13:05:44 [place] [facility] FL TIME OR (NON-REPORTABLE) 2020-07-18 Moise Gamez niversity of 12:50:00 [facility] FL TIME OR (NON-REPORTABLE) 2020-07-18 Moise Gamez niversity of 12:50:00 [facility] BLOCK EPIDURAL 2020-07-18 [facility] 12:25:00 [facility] POCT GLUCOSE (AUTOMATED) 2020-07-[address] [facility] ersity of 12:01:00 [facility] POCT GLUCOSE (AUTOMATED) 2020-07-[address] [facility] ersity of 12:01:00 [facility] DAY SURGERY - ADC 2020-07-18 Doctor Iker, [facility] 05:01:00 [place] [facility] CT ABDOMEN PELVIS W CONTRAST 2020-07-08 Jaki Polanco Uni versity of 00:59:19 [facility] LIPASE 2020-07-08 Jaki Polanco [facility] 00:23:00 [facility] MAGNESIUM 2020-07-08 Jaki Polanco [facility] 00:23:00 [facility] TROPONIN I 2020-07-08 Jaki Polanco Sydnie [facility] 00:23:00 [facility] COMP. METABOLIC PANEL ([id number]) 2020-07-08 Jaki Polanco Un iversity of 00:23:00 [facility] CBC WITH DIFF 2020-07-08 Jaki Polanco [facility] 00:23:00 [facility] URINALYSIS 2020-07-08 Jaki Polanco [facility] 00:23:00 [facility] COVID-19 (ID NOW RAPID TESTING) 2020-07-08 Jaki Polanco [facility] 00:23:00 [facility] XR CHEST 1 VW 2020-07-08 Jaki Polanco [facility] 00:01:58 [facility] CONSENT/REFUSAL FOR DIAGNOSIS AND 2020-07-07 Doctor Dung santiago [facility] 23:40:[address] [place] [facility] TIME OR (NON-REPORTABLE) 2020-07-04 Rosemary Gamezt Maxine U niversity of 13:10:00 [facility] 2020-07-04 Doctor Unassigned, [facility] 05:01:00 [place] [facility] ASSIGNMENT OF BENEFITS 2020-07-01 Doctor Unassigned, Univer sity of 14:01:02 [place] [facility] FL TIME OR (NON-REPORTABLE) 2020-06-20 KeiraRosemarychad Goodman U niversity of 14:12:00 [facility] 2020-06-20 Doctor Unassigned, [facility] 06:01:00 [place] [facility] ASSIGNMENT OF BENEFITS 2020-06-17 Doctor Unassigned, Univer sity of 21:21:05 [place] [facility] CONSENT/REFUSAL FOR DIAGNOSIS AND 2020-06-15 [facility] 20:59:25 [place] [facility] CONSENT/REFUSAL FOR DIAGNOSIS AND 2020-06-15 Doctor Dung santiago [facility] 20:59:25 [place] [facility] ASSIGNMENT OF BENEFITS 2020-06-15 Doctor Unassigned, Univer sity of 20:59:08 [place] [facility] ASSIGNMENT OF BENEFITS 2020-06-15 Doctor Unassigned, Univer sity of 20:59:08 [place] [facility] CONSENT/REFUSAL FOR DIAGNOSIS AND 2020-06-15 [facility] 20:58:52 [place] [facility] CONSENT/REFUSAL FOR DIAGNOSIS AND 2020-06-15 Doctor Dung santiago [facility] 20:58:52 [place] [facility] ASSIGNMENT OF BENEFITS 2020-06-15 Doctor Unassigned, Univer sity of 20:58:37 [place] [facility] ASSIGNMENT OF BENEFITS 2020-06-15 Doctor Unassigned, Univer sity of 20:58:37 [place] [facility] NOTICE OF PRIVACY PRACTICES 2020-06-15 Doctor Unassigned, U niversity of 20:58:21 [place] NOTICE OF PRIVACY PRACTICES 2020-06-15 Doctor Unassigned, U niversity of 20:58:21 [place] [facility] CONSENT/REFUSAL FOR DIAGNOSIS AND 2020-06-15 [facility] 20:58:08 [place] [facility] CONSENT/REFUSAL FOR DIAGNOSIS AND 2020-06-15 [facility] 20:58:08 [place] [facility] ASSIGNMENT OF BENEFITS 2020-06-15 Doctor Unasschad, [facility] sity of 20:57:50 [place] [facility] ASSIGNMENT OF BENEFITS 2020-06-15 Doctor Unassigned, [facility] sity of 20:57:50 [place] [facility] DSU PRE-OP 2020-06-15 Doctor Iker, [facility] 06:01:00 [place] [facility] DSU PRE-OP 2020-06-15 Doctor Iker, [facility] 06:01:00 [place] [facility] HEPATIC FUNCTION PANEL ([id number]) 2020-05-06 [facility] of (ALB,T.PRO,BILI 22:56:00 [facility],BU/BC,ALT,AST,ALK PHOS) [place] BASIC METABOLIC PANEL (NA, K, CL, 2020-05-06 [facility] May [facility] CO2, GLUCOSE, BUN, CREATININE, CA) 22:56:00 [facility] XR CHEST 1 VW 2020-05-06 [facility] of 21:44:02 [facility] LIPASE 2020-05-06 [facility] 21:40:00 [facility] TROPONIN I 2020-05-06 [facility] 21:40:00 [facility] CBC WITH DIFF 2020-05-06 [facility] 21:40:00 [facility] URINALYSIS 2020-05-06 [facility] 21:32:00 [facility] COVID-19 (ID NOW RAPID TESTING) 2020-05-06 [facility] 21:32:00 [facility] NOTICE OF PRIVACY PRACTICES 2020-05-06 Doctor Iker, U [facility]iversity of 21:14:50 [place] [facility] CONSENT/REFUSAL FOR DIAGNOSIS AND 2020-05-06 Doctor Dung santiago [facility] 21:14:25 [place] [facility] CT ABDOMEN PELVIS W CONTRAST 2020-03-26 Gabriele Grayson Un iversity of 06:12:05 [facility] URINALYSIS 2020-03-26 [facility] of 05:02:00 [facility] LIPASE 2020-03-26 [facility] of 03:38:00 [facility] COMP. METABOLIC PANEL ([id number]) 2020-03-26 Gabriele Grayson niversity of 03:38:00 [facility] CBC WITH DIFF 2020-03-26 [place] of 03:38:00 [facility] COVID-19 (ID NOW RAPID TESTING) 2020-03-26 [facility] of 03:38:00 [facility] CONSENT/REFUSAL FOR DIAGNOSIS AND 2020-03-26 [facility] 02:58:31 [place] [facility] REFERRAL- REQUEST/RESPONSE 2020-03-18 Doctor Unassigned, Un iversity of 06:01:00 [place] [facility] MR BRAIN WO CONTRAST 2020-02-08 Monet Dominguez [facility] y of 13:47:00 Ali [facility] BASIC METABOLIC PANEL (NA, K, CL, 2020-02-07 [facility] of CO2, GLUCOSE, BUN, CREATININE, CA) 08:51:00 [facility] CBC WITH DIFF 2020-02-07 [facility] of 08:51:00 [facility] COMP. METABOLIC PANEL ([id number]) 2020-02-05 Rigoberto Menendez Un iversity of 09:37:00 [facility] CBC WITH DIFF 2020-02-05 Rigoberto Menendez [place] of 09:37:00 [facility] MR CERVICAL SPINE WO CONTRAST 2020-02-05 Jesusita Aguillon Un iversity of 00:24:54 [facility] MAGNESIUM 2020-02-04 Rigoberto Menendez [place] of 10:01:00 [facility] COMP. METABOLIC PANEL ([id number]) 2020-02-04 Rigoberto Menendez Un iversity of 10:01:00 [facility] CBC WITH DIFF 2020-02-04 Jesusita Aguillon [place] of 10:01:00 [facility] N-TERMINAL PRO-BNP 2020-02-04 Rigoberto Menendez [place] of 10:01:00 [facility] BLOOD CULTURE SCREEN 2020-02-03 Juan Luis, [facility] of 22:19:00 [facility] RENAL ARTERY DUPLEX BY VASCULAR 2020-02-03 Juan Luis [facility] of LAB 17:42:39 [facility] AMMONIA, PLASMA 2020-02-03 Juan Luis [facility] of 17:06:00 [facility] SMOOTH MUSCLE AB,IGG W/REFLEX 2020-02-03 [place], Un iversity of 16:43:00 [facility] OCCULT (GUAIAC) BLOOD 2020-02-03 Juan Luis [facility] of 16:42:00 [facility] PHOSPHORUS 2020-02-03 Juan Luis, [facility] of 08:45:00 [facility] CREATINE KINASE 2020-02-03 Juan Luis, [facility] of 08:45:00 [facility] URIC ACID 2020-02-03 Juan Luis, [facility] of 08:45:00 [facility] MAGNESIUM 2020-02-03 Juan Luis, [facility] of 08:45:00 [facility] COMP. METABOLIC PANEL ([id number]) 2020-02-03 Rigoberto Menendez iversity of 08:45:00 [facility] CBC WITH DIFF 2020-02-03 Juan Luis [facility] of 08:45:00 [facility] N-TERMINAL PRO-BNP 2020-02-03 Juan Luis [facility] of 08:45:00 [facility] BLOOD CULTURE SCREEN 2020-02-02 Juan Luis [facility] of 20:19:00 [facility] BLOOD CULTURE SCREEN 2020-02-02 Juan Luis [facility] of 19:58:00 [facility] CERULOPLASMIN 2020-02-02 [facility] [place] of 19:58:00 [facility] VALPROIC ACID, FREE 2020-02-02 Juan Luis [facility] o f 19:58:00 [facility] PROTHROMBIN TIME / INR 2020-02-02 [facility] 19:58:00 [facility] ANTI-NUCLEAR ANTIBODY SCREEN 2020-02-02 Ross, [facility] versity of 19:58:00 [facility] SURFACE ANTIBODY 2020-02-02 Juan Luis [facility] Uni versity of 19:58:00 [facility] HEPATITIS B SURFACE ANTIGEN 2020-02-02 Juan Luis [facility] ersity of 19:58:00 [facility] HCV ANTIBODY 2020-02-02 [facility] of 19:58:00 [facility] HAV ANTIBODY (IGG AND IGM) 2020-02-02 Rigober[facility] Menendez [facility] of 19:58:00 [facility] PROCALCITONIN 2020-02-02 [facility] of 19:58:00 [facility] BLOOD CULTURE WORKUP 2020-02-02 [facility] of 19:58:00 [facility] CREATINE KINASE 2020-02-02 [facility] of 11:31:00 [facility] LIPASE 2020-02-02 [facility] of 11:31:00 [facility] COMP. METABOLIC PANEL ([id number]) 2020-02-02 [facility] iversity of 11:31:00 [facility] LIPID PANEL ([id number])(TOTAL 2020-02-02 [facility] of CHOLESTEROL, TRIGLYCERIDES, HDL) 11:31:00 [facility] LITHIUM 2020-02-02 [facility] of 11:31:00 [facility] POCT GLUCOSE (AUTOMATED) 2020-02-02 Pasha Hinojosa [facility] ity of 11:24:00 [facility] LIPASE 2020-02-02 Pasha Hinojosa [place] of 08:21:00 [facility] COMP. METABOLIC PANEL ([id number]) 2020-02-02 [facility] iversity of 08:21:00 [facility] LITHIUM 2020-02-02 Pasha Hinojosa [place] of 08:21:00 [facility] CBC WITH DIFF 2020-02-02 Pasha Hinojosa [place] of 08:21:00 [facility] GLYCOSYLATED HEMOGLOBIN (A1C) 2020-02-02 Rigoberto Menendez iversity of 08:21:00 [facility] ACUTE CARE VENOUS BLOOD GAS 2020-02-01 Pasha Hinojosa [facility] ersity of 19:23:00 [facility] US ABDOMEN COMPLETE 2020-02-01 [facility] o f 16:39:39 [facility] POCT GLUCOSE (AUTOMATED) 2020-02-01 Pasha Hinojosa [facility] ity of 12:46:00 [facility] LIPASE 2020-02-01 [facility] of 10:09:00 [facility] COMP. METABOLIC PANEL ([id number]) 2020-02-01 [facility] iversity of 10:09:00 [facility] LITHIUM 2020-02-01 [facility] of 10:09:00 [facility] CBC WITH DIFF 2020-02-[address] [address] of 10:09:00 [facility] OSMOLALITY SERUM 2020-02-01 [facility] of 00:10:00 [facility] VITAMIN B12, LEVEL 2020-02-01 [facility] of 00:10:00 [facility] FOLATE 2020-02-01 [facility] of 00:10:00 [facility] ABG+COOX+NA+K+GLU+CA2+ 2020-01-31 Kirstin Ron [facility] ty of 20:39:00 [facility] BLOOD CULTURE SCREEN 2020-01-31 [facility] of 18:21:00 [facility] IRON PANEL 2020-01-31 Lisandro [facility] of 18:21:00 [facility] SALICYLATE 2020-01-31 [facility] of 18:21:00 [facility] LITHIUM 2020-01-31 [facility] of 18:21:00 [facility] VALPROIC ACID, TOTAL 2020-01-31 [facility] of 18:21:00 [facility] BLOOD CULTURE WORKUP 2020-01-31 [facility] of 18:21:00 [facility] ADC OR PERICO ONLY - RPR 2020[facility]01-31 [facility] 18:21:00 [facility] GRAM POSITIVE BLOOD PATHOGENS DNA 2020-01-31 May Ron [facility] of PROBE-AEROBIC 18:21:00 [facility] XR ABDOMEN 1 VW 2020-01-31 Asaf Kirstin [place] of 17:09:26 [facility] XR CHEST 1 VW 2020-01-31 Asaf Kirstin [place] of 17:09:[address] [facility] [address] HEAD WO CONTRAST 2020-01-31 Asaf [facility] of 16:58:10 [facility] URINALYSIS 2020-01-31 Asaf [facility] of 16:13:00 [facility] URINE CULTURE 2020-01-31 [facility] of 16:13:00 [facility] ADC / LCC - DRUG SCREEN TRIAGE 2020-01-31 [facility] of 16:13:00 [facility] COVID-19 (ID NOW RAPID TESTING) 2020-01-31 [facility] of 16:00:00 [facility] LAB ONLY COVID INTERPRETATION 2020-01-31 [facility] U niversity of 16:00:00 [facility] BLOOD CULTURE SCREEN 2020-01-31 [facility] of 15:58:00 [facility] CREATINE KINASE 2020-01-31 [facility] of 15:58:00 [facility] LIPASE 2020-01-31 [facility] of 15:58:00 [facility] FERRITIN SERUM 2020-01-31 [facility] of 15:58:00 [facility] AMMONIA, PLASMA 2020-01-31 [facility] of 15:58:00 [facility] TROPONIN I 2020-01-31 [facility] of 15:58:00 [facility] THYROID STIMULATING HORMONE 2020-01-31 [facility] ersity of 15:58:00 [facility] HEPATIC FUNCTION PANEL ([id number]) 2020-01-31 [facility] of (ALB,T.PRO,BILI 15:58:00 [facility],BU/BC,ALT,AST,ALK PHOS) Branch BASIC METABOLIC PANEL (NA, K, CL, 2020-01-31 [facility] of CO2, GLUCOSE, BUN, CREATININE, CA) 15:58:00 [facility] ETHANOL 2020-01-31 [facility] of 15:58:00 [facility] DIFF CONSULT INTERPRETATION 2020-01-31 [facility] ersity of 15:58:00 [facility] CBC WITH DIFF 2020-01-31 [facility] of 15:58:00 [facility] RETICULOCYTES AUTOMATED 2020-01-31 [facility] 15:58:00 [facility] N-TERMINAL PRO-BNP 2020-01-31 [facility] o f 15:58:00 [facility] LACTIC ACID WHOLE BLOOD 2020[facility]01-31 [facility] 15:57:00 [facility] EKG-12 LEAD 2020-01-31 Mariana Ramirez [place] of 15:48:34 [facility] EKG-12 LEAD 2020-01-31 [facility] of 15:40:40 [facility] NOTICE OF PRIVACY PRACTICES 2020-01-31 Doctor Unassigned, U niversity of 15:38:09 [place] [facility] CONSENT/REFUSAL FOR DIAGNOSIS AND 2020-01-31 [facility] 15:37:54 [place] [facility] EXTERNAL PROVIDER RECORDS 2020-01-31 Doctor Unassigned, Uni versity of 05:01:00 [place] [facility] EMERGENCY DEPARTMENT DOCUMENTS 2020-01-31 Doctor Iker , [facility] 05:01:00 [place] [facility] HOSPITAL ADM - MISC 2020-01-31 Doctor Unassigned, Universit y of 05:01:00 [place] [facility] HOSPITAL ADMISSION 2020-01-31 Doctor Unaantonio, [facility] 05:01:00 [place] [facility] CT ABDOMEN PELVIS W CONTRAST 2019-12-18 Meka Hammonds Un iversity of 22:11:19 [facility] URINALYSIS 2019-12-18 Meka Hammonds [facility] 21:07:00 [facility] LIPASE 2019-12-18 Sonya [facility] 20:39:00 [facility] TROPONIN I 2019-12-18 [facility] 20:39:00 [facility] HEPATIC FUNCTION PANEL ([id number]) 2019-12-18 Meka Hammonds [facility] (ALB,T.PRO,BILI 20:39:00 [facility],BU/BC,ALT,AST,ALK PHOS) [place] BASIC METABOLIC PANEL (NA, K, CL, 2019-12-18 Meka Hammonds [facility] CO2, GLUCOSE, BUN, CREATININE, CA) 20:39:00 [facility] CBC WITH DIFF 2019-12-18 Meka Hammonds [facility] 20:39:00 [facility] CONSENT/REFUSAL FOR DIAGNOSIS AND 2019-12-18 Doctor Dung santiago, [facility] 20:15:38 [place] [facility] XR CHEST 1 VW COVID 2019-08-22 [facility] of 01:15:45 [facility] LIPASE 2019-08-22 [facility] of 01:00:00 [facility] TROPONIN I 2019-08-22 [facility] of 01:00:00 [facility] COMP. METABOLIC PANEL ([id number]) 2019-08-22 [facility] U niversity of 01:00:00 [facility] CBC WITH DIFFERENTIAL 2019-08-22 [facility] y of 01:00:00 [facility] PROTHROMBIN TIME / INR 2019-08-22 [facility] ty of 01:00:00 [facility] ACTIVATED PARTIAL THRMPLAS KIMANI 2019-08-22 [facility] of 01:00:00 [facility] URINALYSIS 2019-08-22 [facility] of 01:00:00 [facility] CORONAVIRUS COVID-19 TESTING 2019-08-22 [facility] Un iversity of 01:00:00 [facility] EKG-12 LEAD 2019-08-22 [facility] of 00:52:01 [facility] CONSENT/REFUSAL FOR DIAGNOSIS AND 2019-08-22 [facility] 00:30:30 [place] [facility] LIPASE 2019-06-25 [facility] of 22:49:00 [facility] TROPONIN I 2019-06-25 [facility] 22:49:00 [facility] HEPATIC FUNCTION PANEL ([id number]) 2019-06-25 [facility] of (ALB,T.PRO,BILI 22:49:00 [facility] T,BU/BC,ALT,AST,ALK PHOS) Branch BASIC METABOLIC PANEL (NA, K, CL, 2019-06-25 [facility] May [facility] of CO2, GLUCOSE, BUN, CREATININE, CA) 22:49:00 [facility] CBC WITH DIFFERENTIAL 2019-06-25 [facility] y of 22:49:00 [facility] EKG-12 LEAD 2019-06-25 [facility] of 22:33:31 [facility] URINALYSIS 2019-06-25 [facility] 22:13:00 [facility] LIPASE 2019-06-19 [facility] of 20:30:00 [facility] TEST, SERUM 2019-06-19 [facility] ty of 20:30:00 [facility] HEPATIC FUNCTION PANEL ([id number]) 2019-06-19 [facility] of (ALB,T.PRO,BILI 20:30:00 [facility],BU/BC,ALT,AST,ALK PHOS) Branch BASIC METABOLIC PANEL (NA, K, CL, 2019-06-19 [facility] of CO2, GLUCOSE, BUN, CREATININE, CA) 20:30:00 [facility] CBC WITH DIFFERENTIAL 2019-06-19 [facility] ty of 20:30:00 [facility] URINALYSIS 2019-06-19 [facility] of 20:30:00 [facility] CONSENT/REFUSAL FOR DIAGNOSIS AND 2019-06-19 [facility] 19:35:06 [place] [facility] CT ABDOMEN PELVIS W CONTRAST 2019-05-[address] [facility] versity of 02:03:54 [facility] LIPASE 2019-05-[address] [facility] of 01:07:00 [facility] COMP. METABOLIC PANEL ([id number]) 2019-05-20 Jadyn Skaggs iversity of 01:07:00 [facility] CBC WITH DIFFERENTIAL 2019-05-20 [facility] of 01:07:00 [facility] URINALYSIS 2019-05-[address] [facility] of 01:07:00 [facility] NOTICE OF PRIVACY PRACTICES 2019-05-20 Doctor Unassigned, U niversity of 00:08:29 [place] [facility] CONSENT/REFUSAL FOR DIAGNOSIS AND 2019-05-20 [facility] 00:08:14 [place] [facility] CT ANKLE RIGHT WO CONTRAST 2018-12-05 Ector Frank rsity of 16:22:01 [facility] XR FOOT 3+ VW RIGHT 2018-12-01 Jaki Polanco Sydnie [place] o f 19:59:31 [facility] XR TIBIA FIBULA 2 VW RIGHT 2018-12-01 Jaki Polanco [facility] rsity of 19:59:07 [facility] BASIC METABOLIC PANEL (NA, K, CL, 2018-11-16 [facility], [facility] of CO2, GLUCOSE, BUN, CREATININE, CA) 09:31:00 [facility] CBC WITH DIFFERENTIAL 2018-11-16 [facility] of 09:31:00 [facility] ABORH CONFIRMATION 2018-11-16 [facility] of 00:34:00 [facility] URINE CULTURE 2018-11-16 [facility] of 00:00:00 [facility] URINALYSIS 2018-11-15 [facility] of 23:58:00 [facility] TYPE AND SCREEN 2018-11-15 [facility] of 23:00:00 [facility] TROPONIN I 2018-11-15 [facility] of 21:08:00 [facility] LIPID PANEL ([id number])(TOTAL 2018-11-15 [facility] CHOLESTEROL, TRIGLYCERIDES, HDL) 21:08:[address] [facility] [address] ABDOMEN PELVIS W CONTRAST 2018-11-15 Mariana Ramirez versity of 16:32:45 [facility] HELICOBACTER PYLORI AB, IGG 2018-11-15 [facility] ersity of 15:51:00 [facility] HEPATITIS B SURFACE ANTIBODY 2018-11-15 Mariana Ramirez versity of 15:51:00 [facility] HCV ANTIBODY 2018-11-15 Mariana Ramirez of 15:51:00 [facility] HEPATITIS A VIRUS ANTIBODY IGM 2018-11-15 Mariana Ramirez U niversity of 15:51:00 [facility] HEPATITIS B CORE ANTIBODY IGM 2018-11-15 Mariana Ramirez iversity of 15:51:00 [facility] ACETAMINOPHEN 2018-11-15 Mariana Ramirez of 15:50:00 [facility] XR CHEST 1 VW 2018-11-15 Mariana Ramirez of 15:08:18 [facility] LIPASE 2018-11-15 Mariana Ramirez of 14:40:00 [facility] TROPONIN I 2018-11-15 Mariana Ramirez of 14:40:00 [facility] HEPATIC FUNCTION PANEL ([id number]) 2018-11-15 Mariana Ramirez niversity of (ALB,T.PRO,BILI 14:40:00 [facility],BU/BC,ALT,AST,ALK PHOS) Branch BASIC METABOLIC PANEL (NA, K, CL, 2018-11-15 Florina Ramirez [place] of CO2, GLUCOSE, BUN, CREATININE, CA) 14:40:00 [facility] CBC WITH DIFFERENTIAL 2018-11-15 Mariana Ramirez of 14:40:00 [facility] GLYCOSYLATED HEMOGLOBIN (A1C) 2018-11-15 Maryellen Cummings Un iversity of 14:40:00 Mal [facility] PROTHROMBIN TIME / INR 2018-11-15 [facility] 14:40:00 [facility] ACTIVATED PARTIAL THRMPLAS KIMANI 2018-11-15 Mariana Ramirez niversity of 14:40:00 [facility] N-TERMINAL PRO-BNP 2018-11-15 Mariana Ramirez [place] of 14:40:00 [facility] EKG-12 LEAD 2018-11-15 Mariana Ramirez [place] of 14:26:03 [facility] CONSENT/REFUSAL FOR DIAGNOSIS AND 2018-11-15 [facility] 14:13:05 [place] [facility] Plan of Care Planned Activity Planned Date Details Comments Source Future Scheduled 2023-09-01 Screening for malignant [facility] Test 00:00:00 neoplasm of colon Medical Ce [facility]ter (procedure) [code = 758147034] Future Scheduled 2023-09-01 Screening for malignant [facility] Test 00:00:00 neoplasm of colon Medical Ce [facility]ter (procedure) [code = 631832094] Future Scheduled 2023-09-01 Screening for malignant [facility] Test 00:00:00 neoplasm of colon Medical Ce [facility]ter (procedure) [code = 355826498] Future Scheduled 2023-09-01 Screening for malignant [facility] Test 00:00:00 neoplasm of colon Medical Ce [facility]ter (procedure) [code = 312772227] Future Scheduled 2023-09-01 Screening for malignant [facility] Test 00:00:00 neoplasm of colon Medical Ce [facility]ter (procedure) [code = 122456716] Future Scheduled 2023-09-01 Screening for malignant [facility] Test 00:00:00 neoplasm of colon Medical Ce [facility]ter (procedure) [code = 782271694] Future Scheduled 2023-09-01 Screening for malignant [facility] Test 00:00:00 neoplasm of colon Medical Ce nter (procedure) [code = 928923269] Future Scheduled 2023-09-01 Screening for malignant [facility] Test 00:00:00 neoplasm of colon Medical Ce nter (procedure) [code = 761428814] Future Scheduled 2023-09-01 Screening for malignant [facility] Test 00:00:00 neoplasm of colon Medical Ce [facility]ter (procedure) [code = 467494546] Future Scheduled 2023-09-01 Screening for malignant [facility] Test 00:00:00 neoplasm of colon Medical Ce nter (procedure) [code = 565985068] Future Scheduled 2023-09-01 Screening for malignant [facility] Test 00:00:00 neoplasm of colon Medical Ce nter (procedure) [code = 268944809] Future Scheduled 2023-09-01 Screening for malignant [facility] Test 00:00:00 neoplasm of colon Medical Ce nter (procedure) [code = 319647646] Future Scheduled 2023-09-01 Screening for malignant [facility] Test 00:00:00 neoplasm of colon Medical Ce nter (procedure) [code = 991282690] Future Scheduled 2023-09-01 Screening for malignant [facility] Test 00:00:00 neoplasm of colon Medical Ce nter (procedure) [code = 544362463] Future Scheduled 2023-09-01 Screening for malignant [facility] Test 00:00:00 neoplasm of colon Medical Ce nter (procedure) [code = 985096312] Future Scheduled 2023-09-01 Screening for malignant [facility] Test 00:00:00 neoplasm of colon Medical Ce nter (procedure) [code = 931393970] Future Scheduled 2023-09-01 Screening for malignant [facility] Test 00:00:00 neoplasm of colon Medical Ce nter (procedure) [code = 119582577] Future Scheduled 2023-09-01 Screening for malignant [facility] Test 00:00:00 neoplasm of colon Medical Ce nter (procedure) [code = 737929061] Future Scheduled 2023-09-01 Screening for malignant [facility] Test 00:00:00 neoplasm of colon Medical Ce nter (procedure) [code = 567654483] Future Scheduled 2023-09-01 Screening for malignant [facility] Test 00:00:00 neoplasm of colon Medical Ce nter (procedure) [code = 267327814] Future Scheduled 2023-02-01 Lipid panel (procedure) [facility] 00:00:00 [code = 46331982] Medical Ce nter Future Scheduled 2023-02-01 Lipid panel (procedure) [facility] 00:00:00 [code = 18230371] Medical Ce nter Future Scheduled 2023-02-01 Lipid panel (procedure) [facility] 00:00:00 [code = 39576209] Medical Ce nter Future Scheduled 2023-02-01 Lipid panel (procedure) [facility] 00:00:00 [code = 98721049] Medical Ce nter Future Scheduled 2023-02-01 Lipid panel (procedure) [facility] 00:00:00 [code = 23838314] Medical Ce nter Future Scheduled 2023-02-01 Lipid panel (procedure) [facility] 00:00:00 [code = 33944531] Medical Ce nter Future Scheduled 2023-02-01 Lipid panel (procedure) [facility] Test 00:00:00 [code = 81409153] Medical Ce nter Future Scheduled 2023-02-01 Lipid panel (procedure) [facility] 00:00:00 [code = 82554917] Medical Ce nter Future Scheduled 2023-02-01 Lipid panel (procedure) [facility] 00:00:00 [code = 52827455] Medical Ce nter Future Scheduled 2023-02-01 Lipid panel (procedure) [facility] 00:00:00 [code = 11983670] Medical Ce nter Future Scheduled 2022-12-14 INFLUENZA [...] cervix Medical C enter (procedure) [code = 604740082] Future Scheduled 1983-11-02 Screening for malignant [facility] 00:00:00 neoplasm of cervix Medical C enter (procedure) [code = 072672983] Future Scheduled 1983-11-02 Screening for malignant [facility] 00:00:00 neoplasm of cervix Medical C enter (procedure) [code = 498320779] Future Scheduled 1983-11-02 Screening for malignant [facility] 00:00:00 neoplasm of cervix Medical C enter (procedure) [code = 989380208] Future Scheduled 1983-11-02 Screening for malignant [facility] 00:00:00 neoplasm of cervix Medical C enter (procedure) [code = 528372746] Future Scheduled 1983-11-02 Screening for malignant [facility] 00:00:00 neoplasm of cervix Medical C enter (procedure) [code = 553800411] Future Scheduled 1983-11-02 Screening for malignant [facility] 00:00:00 neoplasm of cervix Medical C enter (procedure) [code = 915525691] Future Scheduled 1983-11-02 Screening for malignant [facility] 00:00:00 neoplasm of cervix Medical C enter (procedure) [code = 437026718] Future Scheduled 1983-11-02 Screening for malignant [facility] 00:00:00 neoplasm of cervix Medical C enter (procedure) [code = 612065817] Future Scheduled 1983-11-02 Screening for malignant [facility] 00:00:00 neoplasm of cervix Medical C enter (procedure) [code = 071737891] Future Scheduled 1981 DTAP/TDAP/TD VACCINES [facility] I [...] breast Medical C enter (procedure) [code = 329842096] Future Scheduled 1962 CT Colonography (combo) [facility] 00:00:00 [code = CT Colonography [facility] (combo)] Future Scheduled 1962 Screening for malignant [facility] 00:00:00 neoplasm of colon Medical Ce nter (procedure) [code = 158330551] Future Scheduled 1962 Screening for malignant [facility] 00:00:00 neoplasm of colon Medical Ce nter (procedure) [code = 105731661] Future Scheduled 1962 Sigmoidoscopy [code = [facility]] [facility] Future Scheduled 1962 Screening for malignant [facility] 00:00:00 neoplasm of breast Medical C enter (procedure) [code = 438470508] Future Scheduled 1962 CT Colonography (combo) [facility] 00:00:00 [code = [facility] ([facility] Future Scheduled 1962 Screening for malignant [facility] 00:00:00 neoplasm of colon Medical Ce nter (procedure) [code = 037947714] Future Scheduled 1962 Screening for malignant [facility] 00:00:00 neoplasm of colon Medical Ce nter (procedure) [code = 367173491] Future Scheduled 1962 S[facility]oidoscopy [facility]code [facility]] Medical Cent[facility] Future Scheduled 1962 Screening for malignant [facility] 00:00:00 neoplasm of breast Medical C enter (procedure) [code = 959977469] Future Scheduled 1962 Screening for malignant [facility] 00:00:00 neoplasm of breast Medical C enter (procedure) [code = 732247219] Future Scheduled 1962 CT Colonography (combo) [facility] 00:00:00 [code = CT [facility] ([facility])] Future Scheduled 1962 Screening for malignant [facility] 00:00:00 neoplasm of colon Medical Ce nter (procedure) [code = 338268686] Future Scheduled 1962 Screening for malignant [facility] 00:00:00 neoplasm of colon Medical Ce nter (procedure) [code = 990199241] Future Scheduled 1962 S[facility]oidoscopy [facility]code = [facility]oscopy] Medical Cente r Future Scheduled 1962 CT Colonography (combo) [facility] 00:00:00 [code = CT [facility] ([facility])] Future Scheduled 1962 Screening for malignant [facility] 00:00:00 neoplasm of colon Medical Ce nter (procedure) [code = 774231546] Future Scheduled 1962 Screening for malignant [facility] 00:00:00 neoplasm of colon Medical Ce nter (procedure) [code = 847582349] Future Scheduled 1962 Sigmoidoscopy [facility]code = [facility]] Medical [facility] Future Scheduled 1962 Screening for malignant [facility] 00:00:00 neoplasm of breast Medical C enter (procedure) [code = 372967334] Future Scheduled 1962 CT Colonography (combo) [facility] 00:00:00 [code = CT [facility] ([facility])] Future Scheduled 1962 Screening for malignant [facility] 00:00:00 neoplasm of colon Medical Ce nter (procedure) [code = 784022211] Future Scheduled 1962 Screening for malignant [facility] 00:00:00 neoplasm of colon Medical Ce nter (procedure) [code = 232890868] Future Scheduled 1962 S[facility]oscopy [facility]code [facility]] Medical [facility] r Future Scheduled 1962 Screening for malignant [facility] 00:00:00 neoplasm of breast Medical C enter (procedure) [code = 335224078] Future Scheduled 1962 CT Colonography (combo) [facility] 00:00:00 [code = CT Colonography [facility] (combo)] Future Scheduled 1962 Screening for malignant [facility] 00:00:00 neoplasm of colon Medical Ce nter (procedure) [code = 204311623] Future Scheduled 1962 Screening for malignant [facility] 00:00:00 neoplasm of colon Medical Ce nter (procedure) [code = 077298991] Future Scheduled 1962 S[facility]oidoscopy [facility]code = [facility]] Medical [facility] Future Scheduled 1962 Screening for malignant [facility] 00:00:00 neoplasm of breast Medical C enter (procedure) [code = 640130339] Future Scheduled 1962 CT Colonography (combo) [facility] 00:00:00 [code = CT [facility] ([facility])] Future Scheduled 1962 Screening for malignant [facility] 00:00:00 neoplasm of colon Medical Ce nter (procedure) [code = 838529488] Future Scheduled 1962 Screening for malignant [facility] 00:00:00 neoplasm of colon Medical Ce nter (procedure) [code = 163481922] Future Scheduled 1962 Sigmoidoscopy [facility]code = [facility]oscopy] Medical Elizabethe r Future Scheduled 1962 Screening for malignant [facility] 00:00:00 neoplasm of breast Medical C enter (procedure) [code = 881062217] Future Scheduled 1962 CT Colonography (combo) [facility] 00:00:00 [code = CT [facility] ([facility])] Future Scheduled 1962 Screening for malignant [facility] 00:00:00 neoplasm of colon Medical Ce nter (procedure) [code = 605476075] Future Scheduled 1962 Screening for malignant [facility] 00:00:00 neoplasm of colon Medical Ce nter (procedure) [code = 884054131] Future Scheduled 1962 Sigmoidoscopy [facility]code = [facility]oscopy] Medical Elizabethe r Future Scheduled 1962 Screening for malignant [facility] 00:00:00 neoplasm of breast Medical C enter (procedure) [code = 500046018] Future Scheduled 1962 CT Colonography (combo) [facility] 00:00:00 [code = CT [facility] ([facility] Future Scheduled 1962 Screening for malignant [facility] 00:00:00 neoplasm of colon Medical Ce nter (procedure) [code = 823932891] Future Scheduled 1962 Screening for malignant [facility] 00:00:00 neoplasm of colon Medical Ce nter (procedure) [code = 379852327] Future Scheduled 1962 Sigmoidoscopy [facility]code = [facility]oscopy] Medical Elizabethe r Future Scheduled 1962 Screening for malignant [facility] 00:00:00 neoplasm of breast Medical C enter (procedure) [code = 998707819] Future Scheduled 1962 CT Colonography (combo) [facility] 00:00:00 [code = CT [facility])] Future Scheduled 1962 Screening for malignant [facility] 00:00:00 neoplasm of colon Medical Ce nter (procedure) [code = 007609110] Future Scheduled 1962 Screening for malignant [facility] 00:00:00 neoplasm of colon Medical Ce nter (procedure) [code = 210110095] Future Scheduled 1962 Sigmoidoscopy [facility]code [facility] S[facility]oscopy] Medical Cente r Encounters Start End Encounter Admission Attending Care Care Encounter Source Date/Time Date/Time Type Type Clinicians Facility Department ID 2022-07-26 Outpatient Osman, STLMLC STLMLC [id number] Common 10:48:01 [facility] [address] [facility] 2022-05-16 Outpatient Osman, STLMLC STLMLC [id number] Common 14:15:01 [facility] 24571 [facility] 2022-02-26 Outpatient Slade, Na STLMLC STLMLC [id number] 2 Common 11:44:00 [facility] 2022-02-22 Outpatient Slade, Na STLMLC STLMLC [id number] 2 Common 15:04:00 [facility] 2022-01-10 Outpatient Slade, Na STLMLC STLMLC [id number] 2 Common 11:30:01 [facility] 2021-12-29 Outpatient Slade, Na STLMLC STLMLC [id number] 2 Common 09:54:01 [facility] 2021-12-26 Outpatient Slade, Na STLMLC STLMLC [id number] 2 Common 08:22:00 [facility] 2021-12-22 Outpatient Slade, Na STLMLC STLMLC [id number] 2 Common 08:47:00 [facility] 2021-09-19 Outpatient Slade, Na STLMLC STLMLC [id number] 2 Common 13:44:00 [facility] 2021-08-16 Outpatient Slade, Na STLMLC STLMLC [id number] 2 Common 08:30:01 [facility] 2021-06-14 Outpatient Slade, Na STLMLC STLMLC [id number] 2 Common 10:15:02 [facility] 2021-05-25 Outpatient Colette PIPER [facility] [id number] Univers 16:04:35 GULSHAN [facility] 2021-05-10 Outpatient Slade, Na STLMLC STLMLC [id number] 2 Common 14:36:16 [facility] 2021-05-10 Outpatient Slade, Na STLMLC STLMLC [id number] 2 Common 14:35:31 [facility] 2021-05-10 Outpatient Slade, Na STLMLC STLMLC [id number] 2 Common 14:33:15 [facility] 2021-05-10 Outpatient Slade, Na STLMLC STLMLC [id number] 2 Common 14:26:40 [id number] [facility] 2021-05-10 Outpatient Slade, Na STLMLC STLMLC [id number] 2 Common 14:26:20 [id number] [facility] 2021-05-10 Outpatient Slade, Na STLMLC STLMLC [id number] 2 Common 13:09:45 [id number] [facility] 2021-05-10 Outpatient Slade, Na STLMLC STLMLC [id number] 2 Common 12:53:19 [id number] [facility] 2021-05-10 Outpatient Slade, Na STLMLC STLMLC [id number] 2 Common 12:44:09 [id number] [facility] 2021-05-10 Outpatient Slade, Na STLMLC STLMLC [id number] 2 Common 12:41:43 [id number] [facility] 2021-05-10 Outpatient Slade, Na STLMLC STLMLC [id number] 2 Common 12:14:04 [id number] [facility] 2021-05-10 Outpatient Slade, Na STLMLC STLMLC [id number] 2 Common 12:09:45 [id number] [facility] 2021-05-10 Outpatient Slade, Na STLMLC STLMLC [id number] 2 Common 12:08:20 [id number] [facility] 2021-05-10 Outpatient Slade, Na STLMLC STLMLC [id number] 2 Common 11:31:43 [id number] [facility] 2021-05-10 Outpatient Slade, Na STLMLC STLMLC [id number] 2 Common 11:27:56 [id number] [facility] 2021-05-10 Outpatient Slade, Na STLMLC STLMLC [id number] 2 Common 11:27:26 [id number] [facility] 2021-05-10 Outpatient Slade, Na STLMLC STLMLC [id number] 2 Common 11:16:24 [id number] [facility] 2021-04-12 Outpatient R KODI [facility] [id number] Univers 10:13:10 ARIK Stokes ity [facility] 2021-02-12 Outpatient R KEIRA [facility] [id number] Univers 02:51:20 MOISE ity [facility] 2021-02-11 Emergency [facility] [id number] Univers 18:57:51 ity [facility] 2021-02-11 Emergency [facility] [id number] Univers 10:52:36 ity [facility] 2021-02-10 Emergency [facility] [id number] Univers 23:34:27 ity [facility] 2021-02-10 Emergency [facility] [id number] Univers 16:03:46 ity of [facility] 2021-02-09 Emergency [facility] [id number] Univers 14:07:13 ity of [facility] 2021-02-09 Emergency [facility] [id number] Univers 13:02:51 ity [facility] 2021-01-21 Outpatient RUFUS PENNY Surgery [id number] [facility] 22:26:45 GOTTI 2021-01-21 Inpatient ER GOPIKOURTNEYAN [facility] G[facility] [id number] [facility] 22:24:24 2021-01-21 Outpatient RUFUS PENNY Surgery [id number] [facility] 18:10:30 GOTTI 2020-08-26 Inpatient ER BRAULIO NGUYỄN [facility] Med [id number] [facility] 02:30:00 2022-08-01 2022-08-01 Transition PawanNHAN 1.2.840.114 [id number] Univers 00:00:00 00:00:00 of Care Kalpesh Hawley ELMA 350.1.13.10 [place] [id number] [facility] [address] 2022-07-30 2022-07-31 Outpatient X ALISSA [facility] [id number] Univers 15:34:00 16:15:00 MARIE li [facility] 2022-07-30 2022-07-31 Emergency Mariana Ramirez [facility] 1.2.840. 114 [id number] Univers 15:34:00 16:15:00 Marie Maxwell [id number] ity of Madhav Nicole 4.2.7.2.686 [facility] [phone] [facility] [address] 2022-05-16 2022-05-16 (TEL) STLMLC STLMLC [id number] Co mmon 00:00:00 00:00:00 [facility] 2022-04-27 2022-04-27 Transition HusseinNHAN 1.2.840.114 [id number] Univers 00:00:00 00:00:00 of Care Lanny ELMA 350.1.13.10 [place] [id number] [facility] [address] 2022-04-25 2022-04-26 Outpatient X EMILIANO [facility] [id number] Univers 16:51:00 16:15:00 PASHA li [facility] 2022-04-25 2022-04-26 Emergency Jadyn Skaggs [facility] 1.2.840. 114 [id number] Univers 16:51:00 16:15:00 Rigoberto Menendez 350.1.13.10 ity of [place] Hinojosa 4.2.7.2.686 [facility] [id number] [facility] [address] 2022-04-08 2022-04-08 Emergency X AUFDERHEIDE [facility] ERT [id number] Univers 13:18:00 15:19:00 , JUDY li of [facility] 2022-04-08 2022-04-08 Emergency Aufderheide [facility] 1.2.840.114 [id number] Univers 13:18:00 15:19:00 , Judy MARCUM 350.1.13.10 i ty of Ignacia BRYANT 4.2.7.2.686 [facility] [id number] [facility] [address] 2022-03-27 2022-03-27 (TEL) STLMLC STLMLC [id number] Co mmon 00:00:00 00:00:00 [facility] 2022-03-05 2022-03-05 (TEL) STLMLC STLMLC [id number] Co mmon 00:00:00 00:00:00 [facility] 2022-02-28 2022-02-28 (TEL) STLMLC STLMLC [id number] Co mmon 00:00:00 00:00:00 [facility] 2022-02-22 2022-02-22 OFFICE STLMLC STLMLC [id number] Co mmon 00:00:00 00:00:00 VISIT [facility] it PT LEVEL 4 - [facility] 2022-02-21 2022-02-21 (TEL) STLMLC STLMLC [id number] Co mmon 00:00:00 00:00:00 [facility] 2022-02-08 2022-02-08 (TEL) STLMLC STLMLC [id number] Co mmon 00:00:00 00:00:00 [facility] 2022-02-07 2022-02-07 Transition NHAN Hussein 1.2.840.114 [id number] Univers 00:00:00 00:00:00 of Juan WILLS 350.1.13.10 it y of [place] 4.2.7.2.686 [facility] [id number] [facility] [address] 2022-02-03 2022-02-06 Outpatient X ALISSA [facility] [id number] Univers 10:41:00 19:47:00 ELYSSA li [facility] 2022-02-03 2022-02-06 Hospital Nguyễn Montano [facility] 1.2.840.11 [id number] Univers 10:41:00 19:47:00 Encounter Elyssa Maxwell CHAO 350.1.13.10 ity of [place] 4.2.7.2.686 [facility] [id number] [facility] [address] 2022-02-01 2022-02-01 (TEL) STLMLC STLMLC [id number] Co mmon 00:00:00 00:00:00 [facility] 2022-01-26 2022-01-26 Emergency X [facility] ERT [id number] Univers 15:28:00 19:45:00 MEKA li [facility] 2022-01-26 2022-01-26 Emergency [facility] 1.2.634.054 [id number] Univers 15:28:00 19:45:00 Meka Kaiden CHAO 350.1.13.10 ity of [place] 4.2.7.2.686 [facility] [id number] [facility] [address] 2022-01-10 2022-01-10 (TEL) STLMLC STLMLC [id number] Co mmon 00:00:00 00:00:00 [facility] 2022-01-02 2022-01-02 [facility] [id number] Univers 10:00:00 10:00:00 VIRA shey [facility] 2022-01-02 2022-01-02 Orders Doctor JAQUELIN 1.2.840.114 [id number] Univers 00:00:00 00:00:00 Only Unassigned, KATHIE 350.1.13.10 ity of [place] [facility] 4.2.7.2.686 Archie [id number] [facility] [address] 2021-12-13 2021-12-13 (TEL) STLMLC STLMLC [id number] Co mmon 00:00:00 00:00:00 [facility] 2021-11-13 2021-11-13 (TEL) STLMLC STLMLC [id number] Co mmon 00:00:00 00:00:00 [facility] 2021-11-02 2021-11-02 [facility] [id number] Univers 04:35:00 08:22:00 MARIANA li [facility] 2021-11-02 2021-11-02 [facility] 1.2.758.926 [id number] Univers 04:35:00 08:22:00 Mariana MARCUM 350.1.13.10 i ty [facility] 4.2.7.2.686 [facility] [id number] [facility] [address] 2021-10-25 2021-10-25 Orders Doctor JAQUELIN 1.2.840.114 [id number] Univers 00:00:00 00:00:00 Only Unassigned, KATHIE 350.1.13.10 ity [facility] [address] [place] [address] [id number] [facility] [address] 2021-10-19 2021-10-19 (TEL) STLMLC STLMLC [id number] Co mmon 00:00:00 00:00:00 [facility] 2021-10-18 2021-10-18 (TEL) STLMLC STLMLC [id number] Co mmon 00:00:00 00:00:00 [facility] 2021-10-06 2021-10-06 (TEL) STLMLC STLMLC [id number] Co mmon 00:00:00 00:00:00 [facility] 2021-09-29 2021-09-29 Outpatient R JENNIFER DENNY [facility] SOR [id number] Univers 06:25:00 10:55:00 ZULEMA li [facility] 2021-09-29 2021-09-29 [facility] 1.2.840.114 [id number] Univers 06:25:00 10:55:00 Encounter Zulema MARCUM 350.1.13.10 ity [facility] [place] [id number] [facility] [address] 2021-09-29 2021-09-29 Surgery Jennifer [facility] 1.2.840.114 [id number] Univers 07:45:00 10:15:00 Zulema MARCUM 350.1.13.10 ity [facility] 4.[place] [id number] [facility] [address] 2021-09-29 2021-09-29 Anesthesia Abe Arana [facility] 1.2.840.11 [id number] Univers 07:57:00 09:44:00 Event Elyssa Jerome 350.1.13.10 ity [facility] 4.[place] [id number] [facility] [address] 2021-09-29 2021-09-29 Orders Doctor JAQUELIN 1.2.840.114 [id number] Univers 00:00:00 00:00:00 Only Unassigned, KATHIE 350.1.13.10 [facility] 4.2.7.2.686 Archie as [id number] [facility] [address] 2021-09-27 2021-09-27 Laboratory Only, Adc Test [facility] 1.2.840. 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 Elizabeth, Adc Lab Main [facility] 1.2.8 40.114 [id number] Univers 08:15:00 08:30:00 Visit Zulema Rodriguez 350.1.13.10 ity of [facility] 4.[place] [id number] [facility] [address] [facility] 2021-09-27 2021-09-27 Orders Doctor JAQUELIN 1.2.840.114 [id number] Univers 00:00:00 00:00:00 Only Unassigned, KATHIE 350.1.13.10 ity of [place] [facility] 4.2.7.2.686 Archie as [phone] [facility] [address] 2021-09-21 2021-09-21 [facility] [id number] Co mmon 00:00:00 00:00:00 VISIT Spirit ESTAB PT - CHI LEVEL 4 [facility] 2021-09-12 2021-09-12 Transition NHAN Abdi 1.2.840.114 [id number] Univers 00:00:00 00:00:00 of Care Cyn WILLS 350.1.13.10 i ty of [place] [id number] [facility] [address] 2021-09-01 2021-09-08 Inpatient X ALISHA OHMICHOACANO [facility] [id number] Univers 13:22:00 17:57:00 RAF li [facility] 2021-09-01 2021-09-08 [facility] Collin, Jaki Sydnietonie BAUTISTAE 1.2.840.1 [id number] Univers 13:22:00 17:57:00 Encounter Raf Greene 350.1.1 3.10 ity of [facility] 4.2.7.2.686 [place] [id number] [facility] [address] 2021-09-08 2021-09-08 (TEL) [facility] [id number] Co mmon 00:00:00 00:00:00 Spirit - [facility] 2021-08-27 2021-08-27 Emergency X SASHA OHMICHOACANO ERT [id number] Univers 10:45:00 15:33:00 MARU li [facility] 2021-08-27 2021-08-27 Emergency Sasha OHMICHOACANO 1.2.840.114 [id number] Univers 10:45:00 15:33:00 Maru MARCUM 350.1.13.10 ity [facility] 4.2.7.2.686 [facility] [phone] Medi brandy [address] 2021-08-25 2021-08-25 (TEL) STLMLC STLMLC [id number] Co mmon 00:00:00 00:00:00 [facility] 2021-08-22 2021-08-22 (TEL) STLMLC STLMLC [id number] Co mmon 00:00:00 00:00:00 [facility] 2021-08-07 2021-08-07 OFFICE STLMLC STLMLC [id number] Co mmon 00:00:00 00:00:00 VISIT EST Spir it PT LEVEL 3 - [facility] 2021-08-01 2021-08-01 Transition NHAN Hussein 1.2.840.114 [id number] Univers 00:00:00 00:00:00 of Juan WILLS 350.1.13.10 it y of [place] 4.2.7.2.686 [facility] [phone] [facility] [address] 2021-08-01 2021-08-01 (TEL) STLMLC STLMLC [id number] Co mmon 00:00:00 00:00:00 [facility] 2021-07-23 2021-07-29 Inpatient X YSABEL OHMICHOACANO [facility] [id number] Univers 15:34:00 13:50:00 DANIEL ity of [facility] 2021-07-23 2021-07-29 [facility] Meka Hammonds [facility] 1.2.840. 114 [id number] Univers 15:34:00 13:50:00 Encounter Pasha Hinojosa 350.1.13.10 ity of [place] 4.2.7.2.686 [facility] [id number] [facility] [address] 2021-07-04 2021-07-04 Outpatient R ANANYA [facility] [id number] Univers 10:42:00 13:20:00 GULSHAN ity of [facility] 2021-07-04 2021-07-04 [facility] 1.2.553.340 [id number] Univers 10:42:00 13:20:00 Encounter Gulshan MARCUM 350.1.13.10 ity of [facility] 4.[place] [id number] [facility] [address] 2021-07-04 2021-07-04 [facility] 1.2.840.114 [id number] Univers 12:00:00 12:39:00 Gulshan MARCUM 350.1.13.10 i ty of [place]ICAL [phone] [facility] [address] 2021-07-04 2021-07-04 Orders Doctor JAQUELIN 1.2.840.114 [id number] Univers 00:00:00 00:00:00 Only Unassigned, KATHIE 350.1.13.10 [facility] 4.2.7.2.686 Archie as [phone] [facility] [address] Branch 2021-06-15 2021-06-15 OFFICE STLMLC STLMLC [id number] Co mmon 00:00:00 00:00:00 VISIT Spirit ESTAB PT - CHI LEVEL 4 [facility] 2021-06-12 2021-06-12 (TEL) STLMLC STLMLC [id number] Co mmon 00:00:00 00:00:00 Spirit [facility] 2021-06-05 2021-06-05 Outpatient R ANANYA [facility] [id number] Univers 10:30:00 10:30:00 [facility] 2021-06-03 2021-06-03 [facility] [id number] Univers 14:00:00 22:08:00 [facility] 2021-06-03 2021-06-03 [facility] 1.2.848.378 [id number] Univers 14:00:00 22:08:00 Mariana CHAO 350.1.13.10 i ty of [place].7.[place] C[place] [phone] [facility] 0[address] 2021-06-01 2021-06-01 (TEL) STLMLC STLMLC [id number] Co mmon 00:00:00 00:00:00 [facility] 2021-05-21 2021-05-22 Emergency X JAROCHO, [facility] ERT [id number] Univers 23:29:00 01:11:00 CONSUELO li [facility] 2021-05-21 2021-05-22 Emergency Ebratoni, [facility] 1.2.840.114 [id number] Univers 23:29:00 01:11:00 Consuelo KEEWATIN 350.1.13.10 i ty of [place] 4.2.7.2.686 [place] [facility] [id number] [facility] [address] [place] 2021-05-19 2021-05-19 Letter JAQUELIN Mendoza 1.2.840.114 [id number] Univers 00:00:00 00:00:00 (Out) Kelsy VÁZQUEZ 350.1.13.10 it y of [facility] 4.2.7.2.686 Archie as [phone] [facility] [address] [place] 2021-05-19 2021-05-19 Telephone Nurse, Phillip [facility] 1..840.114 [id number] Univers 00:00:00 00:00:00 Db Urgent HEALTH 350.1.13.10 ity of [facility] 4.2.7.2.686 Archie as GRACIE?BLEA [phone] [address] MEDICAL OFFICE BUILDING 2021-05-18 2021-05-18 Outpatient R JAROCHO [facility] [id number] Univers 09:00:00 09:41:26 CONSUELO li [facility] 2021-05-18 2021-05-18 Urgent EbConsuelo scherer [facility] 1.2.840.114 [id number] Univers 09:00:00 09:20:00 Care Green, Korina HEALTH 350.1.13.10 ity of [place] 4.2.7.2.686 Archie as GRACIE?BLEA [id number] [address] MEDICAL OFFICE BUILDING 2021-05-18 2021-05-18 Letter Doctor HAMMER 1.2.840.114 [id number] Univers 00:00:00 00:00:00 (Out) UnassKATHIE bnoilla 350.1.13.10 ity of [facility] 4.2.7.2.686 Archie as [id number] [facility] [address] 2021-05-15 2021-05-15 (TEL) STLMLC STLMLC [id number] Co mmon 00:00:00 00:00:00 [facility] 2021-05-09 2021-05-09 (TEL) STLMLC STLMLC [id number] Co mmon 00:00:00 00:00:00 [facility] 2021-04-19 2021-04-19 (TEL) STLMLC STLMLC [id number] Co mmon 00:00:00 00:00:00 [facility] 2021-04-18 2021-04-18 Outpatient R KODI [facility] [id number] [id number] Univers 10:15:00 10:15:00 ARIK [facility] 2021-04-15 2021-04-15 Emergency [facility] 1.2.840.114 [id number] Univers 13:41:00 15:39:00 Consuelo KEEWATIN 350.1.13.10 i ty [facility] 4.2.7.2.686 [place] [facility] [id number] [facility] [address] 2021-04-15 2021-04-15 Nurse Nurse, Phillip [facility] 1.2.840.114 [id number] Univers 13:20:00 13:40:00 Visit Manoj Korina [facility] 350.1.13.10 ity [facility] 4.2.7.2.686 Archie as GRACIE?BLEA [phone] [address] MEDICAL OFFICE BUILDING 2021-04-15 2021-04-15 [facility] [id number] Univers 13:20:00 13:37:39 KORINA ity [facility] 2021-04-15 2021-04-15 Outpatient [facility] ERT [id number] Univers 13:20:00 13:37:39 KORINA ity [facility] 2021-04-03 2021-04-03 OFFICE [facility] [id number] Co mmon 00:00:00 00:00:00 VISIT EST Spir it PT LEVEL 3 - [facility] 2021-03-31 2021-03-31 (TEL) STLMLC STLMLC [id number] Co mmon 00:00:00 00:00:00 [facility] 2021-03-28 2021-03-28 (TEL) STLMLC STLMLC [id number] Co mmon 00:00:00 00:00:00 [facility] 2021-03-25 2021-03-25 Emergency [facility] [id number] Univers 18:03:00 21:41:00 CONSUELO [facility] 2021-03-25 2021-03-25 Emergency [facility] 1.2.840.114 [id number] Univers 18:03:00 21:41:00 Consuelo KEEWATIN 350.1.13.10 i law [facility] 4.2.7.2.686 [facility] [id number] [address] 2021-03-25 2021-03-25 Outpatient R HAKEEM [facility] [id number] Univers 11:40:00 11:23:42 OLGA LIDIA [facility] 2021-03-25 2021-03-25 Imm/Inj Vaccine, Ang Db [facility] 1.2.840 .114 [id number] Univers 11:00:13 11:10:13 [facility] 350.1.13.10 itshey [facility] 4.2.7.2.686 Archie as GRACIE?BLEA [phone] [address] MEDICAL OFFICE BUILDING 2021-03-21 2021-03-21 (TEL) STLMLC STLMLC [id number] Co mmon 00:00:00 00:00:00 [facility] 2021-03-20 2021-03-20 Emergency X [facility] ERT [id number] Univers 16:03:00 19:39:00 MEKA [facility] 2021-03-20 2021-03-20 Emergency [facility] 1.2.005.717 [id number] Univers 16:03:00 19:39:00 Meka MARCUM 350.1.13.10 ity of [facility] 4.2.7.2.686 [facility] [id number] [address] 2021-02-12 2021-02-12 Emergency X ISABELLE [facility] ERT [id number] Univers 14:09:00 21:08:00 ROSALINDA li [facility] 2021-02-12 2021-02-12 Emergency [facility] 1.2.422.739 [id number] Univers 14:09:00 21:08:00 Rosalinda Upton CHAO 350.1.13.10 ity of [place] 4.2.7.2.686 [facility] [id number] [address] 2021-01-17 2021-01-18 Emergency [facility] 1.2.840.114 [id number] Univers 21:29:00 01:13:00 Maru Marcum 350.1.13.10 ity of [place] 4.2.7.2.686 [facility] [phone] [address] 2021-01-17 2021-01-18 Emergency X [facility] ERT [id number] Univers 21:29:00 01:13:00 MARU li [facility] 2021-01-17 2021-01-17 Orders Doctor JAQUELIN 1.2.840.114 [id number] Univers 00:00:00 00:00:00 Only Unassigned, KATHIE 350.1.13.10 ity of [place] [facility] 4.2.7.2.686 Archie as [id number] [address] 2021-01-07 2021-01-07 [facility] 1.2.708.250 [id number] Univers 11:38:27 23:59:00 Encounter Consuelo [facility] 350.1.13.10 ity of [place] 4.2.7.2.686 Archie as Gracie?Blea [phone] Sc [address] Medical Office Building 2021-01-07 2021-01-07 [facility] [id number] Univers 11:40:00 11:55:26 CONSUELO ity of [facility] 2021-01-07 2021-01-07 Urgent Consuelo Avendaño [facility] 1.2.840.114 [id number] Univers 11:22:24 11:55:26 Care [facility] 350.1.13.10 ity of [place] 4.2.7.2.686 Archie as Gracie?Blea [phone] Sc dical kney [address] Medical Office Building 2021-01-07 2021-01-07 Letter JAQUELIN Huddleston 1.2.840.114 [id number] Univers 00:00:00 00:00:00 (Out) Karlene VÁZQUEZ 350.1.13.10 i ty [facility] 4.2.7.2.686 Archie as [id number] [facility] [address] 2020-12-30 2020-12-30 Emergency X [facility] ERT [id number] Univers 13:14:00 17:53:00 [facility] 2020-12-30 2020-12-30 Emergency [facility] 1.2.840.114 [id number] Univers 13:14:00 17:53:00 Maru Marcum 350.1.13.10 ity of [place].7.2.686 [place] [phone] [facility] [address] 2020-12-30 2020-12-30 Office Critical access hospital 1.2.840.114 [id number] Univers 10:00:12 10:49:11 Visit Vira Marcum 350.1.13.10 ity of [place] 4.2.7.2.686 [place] [facility] [id number] Sc dical nal [address] 2020-12-30 2020-12-30 Outpatient [facility] [id number] Univers 09:30:00 10:49:11 VIRA li [facility] 2020-12-23 2020-12-23 Hospital Critical access hospital 1.2.840.114 [id number] Univers 15:59:00 23:59:00 Encounter Vira L [place] 350.1.13.10 ity of [place] 4.2.7.2.686 [place] [phone] [place] [address] [place] 2020-12-23 2020-12-23 [facility] 1.2.840.114 [id number] Univers 15:59:00 23:59:00 Encounter Vira [place]ston 350.1.13.10 ity of [place] 4.2.7.2.686 [place] [phone] [address] 2020-12-23 2020-12-23 Outpatient R [facility] [id number] Univers 00:00:00 00:00:00 VIRA ity of [facility] 2020-12-16 2020-12-16 Office Critical access hospital 1.2.840.114 [id number] Univers 09:56:42 11:11:19 Visit Vira Richardston 350.1.13.10 ity of [place] 4.2.7.2.686 [place] Professio [phone] Sc dical nal [address] [place] [address] 2020-12-16 2020-12-16 [facility] 1.2.840.114 [id number] Univers 09:56:42 11:11:19 Visit Vira Richardston 350.1.13.10 ity of [place] 4.2.7.2.686 [place] Profess[place] [phone] Sc dical nal [address] [place] [address] 2020-12-16 2020-12-16 Outpatient R [facility] [id number] Univers 10:00:00 10:00:00 VIRA ity of [facility] 2020-12-14 2020-12-14 (TEL) STLC STLMLC [id number] Co mmon 00:00:00 00:00:00 [facility] 2020-12-05 2020-12-05 Emergency [facility] 1.2.840.114 [id number] Univers 14:07:00 18:52:00 Eliana Feliciano [place] 350.1.13.10 ity of [place] 4.2.7.2.686 [place] [phone] [facility] [address] 2020-12-05 2020-12-05 Emergency [facility]RT [id number] Univers 14:07:00 18:52:00 ELIANA [facility] 2020-11-10 2020-11-10 Outpatient STLMLC STLMLC [id number] Common 00:00:00 00:00:00 [facility] 2020-10-11 2020-10-12 Emergency Mariana Ramirez 1.2.840. 114 [id number] Univers 08:30:00 20:40:00 Kadi Duggan 350.1.13.10 ity [facility] 4.2.7.[address] [place] [address] [phone] [facility] [address] 2020-10-11 2020-10-12 [facility] [id number] Univers 08:30:00 20:40:00 URIEL [facility] 2020-10-11 2020-10-12 Emergency Mariana Ramirez 1.2.840. 114 [id number] 08:30:00 20:40:00 Kadi Duggan 350.1.13.[address] [facility] 4.2.7.2.68 [id number] 095 2020-10-04 2020-10-04 Emergency [facility] 1.2.801.138 [id number] Univers 17:45:00 20:23:00 Maisha Marcum 350.1.13.10 i ty of [place] 4.2.7.2.686 [facility] [phone] [facility] [address] 2020-10-04 2020-10-04 Emergency X [facility] ERT [id number] Univers 17:45:00 20:23:00 [facility] 2020-10-04 2020-10-04 Emergency [facility] 1.2.726.025 [id number] 17:45:00 20:23:00 Maisha R [place] 350.1.13.10 [place] 4.2.7.2.686 [place] [id number] 084 2020-09-30 2020-09-30 Outpatient STLMLC STLMLC [id number] Common 00:00:00 00:00:00 [facility] 2020-09-29 2020-09-29 Outpatient STLMLC STLMLC [id number] Common 00:00:00 00:00:00 [facility] 2020-09-19 2020-09-19 Outpatient STLMLC STLMLC [id number] Common 00:00:00 00:00:00 [facility] 2020-09-16 2020-09-16 Outpatient STLMLC STLMLC [id number] Common 00:00:00 00:00:00 [facility] 2020-09-02 2020-09-02 Outpatient STLMLC STLMLC [id number] Common 00:00:00 00:00:00 [facility] 2020-08-05 2020-08-05 Emergency [facility] 1.2.840.114 [id number] Univers 08:16:00 09:12:00 Maru Marcum 350.1.13.10 [facility] 4.2.7.2.686 [facility] [id number] [address] 2020-08-05 2020-08-05 Emergency X [facility] ERT [id number] Univers 08:16:00 09:12:00 [facility] 2020-08-05 2020-08-05 [facility] 1.2.840.114 [id number] 08:16:00 09:12:00 Maru Marcum 350.1.13.10 [place] 4.2.7.2.686 [place] [id number] 4 2020-07-19 2020-07-19 Outpatient Colette MARSH [facility] [id number] Univers 11:20:00 11:11:33 SULAIMAN [facility] 2020-07-18 2020-07-18 [facility] 1.2.840.114 [id number] Univers 06:28:00 08:29:00 Encounter Moise S [place] 350.1.13.10 ity of [place] 4.2.7.2.686 [place] Surgical [id number] [facility] [address] 2020-07-18 2020-07-18 [facility] 1.2.840.114 [id number] 06:28:00 08:29:00 Encounter Moise Goodman [place] 350.1.13.10 [place] 4.2.7.2.686 Surgical [id number] [place] [address] 2020-07-18 2020-07-18 Surgery [facility] 1.2.335.979 [id number] Univers 07:30:00 08:00:00 Moise Goodman [place] 350.1.13.10 ity of [place] 4.2.7.2.686 [place] Surgical [id number] [facility] [address] 2020-07-18 2020-07-18 Surgery [facility] 1.2.840.114 [id number] 07:30:00 08:00:00 [place] 350.1.13.10 [place] 4.2.7.2.686 Surgical [id number] [place] 020 2020-07-15 2020-07-15 [facility]patient [facility] [id number] Univers 08:00:00 08:00:00 MOISE [facility] 2020-07-11 2020-07-11 Outpatient [facility] [id number] Univers 12:00:00 12:00:00 SULAIMAN [facility] 2020-07-08 2020-07-08 Outpatient Colette [facility] [id number] Univers 10:40:00 10:40:00 SULAIMAN [facility] 2020-07-07 2020-07-07 Emergency Collin [facility] 1.2.840.114 [id number] Univers 18:47:00 22:05:00 Sydnie Marcum 350.1.13.10 i ty of [place] 4.2.7.2.686 [place] [id number] [facility] [address] 2020-07-07 2020-07-07 Emergency X Jaki POLANCO [facility] ERT [id number] Univers 18:47:00 22:05:00 ity of [facility] 2020-07-07 2020-07-07 Emergency Jaki Polanco [facility] 1.2.840.114 [id number] 18:47:00 22:05:00 Sydnie Chao 350.1.13.10 [place] 4.2.7.2.686 [place] [id number] 084 2020-07-07 2020-07-07 Outpatient STLMLC STLMLC [id number] Common 00:00:00 00:00:00 [facility] 2020-07-07 2020-07-07 Orders Doctor JAQUELIN 1.2.840.114 [id number] [facility] 00:00:00 00:00:00 Only Unassigned, KATHIE 350.1.13.10 ity of [place] [facility] 4.2.7.2.686 Archie as [id number] [address] 2020-07-07 2020-07-07 Orders Doctor JAQUELIN 1.2.840.114 [id number] 00:00:00 00:00:00 Only Unassigned, KATHIE 350.1.13.10 [place] [facility] 4.2.7.2.686 [id number] [facility] 2020-07-04 2020-07-04 [facility] 1.2.840.114 [id number] Univers 06:30:00 08:44:00 Encounter Moise Marcum 350.1.13.10 ity of [place] 4.2.7.2.686 [place] [id number] [address] 2020-07-04 2020-07-04 Outpatient R [facility] JARROD [id number] Univers 06:30:00 08:44:00 MOISE ity of [facility] 2020-07-04 2020-07-04 [facility] 1.2.840.114 [id number] 06:30:00 08:44:00 Encounter Moise Marcum 350.1.13.10 [place] 4.2.7.2.686 Surgical [id number] [place] [address] 2020-07-04 2020-07-04 Orders Doctor HAMMER 1.2.840.114 [id number] Univers 00:00:00 00:00:00 Only Unassigned, KATHIE 350.1.13.10 ity of [place] [facility] 4.2.7.2.686 Archie as [id number] [facility] [address] 2020-07-04 2020-07-04 Orders Doctor HAMMER 1.2.840.114 [id number] 00:00:00 00:00:00 Only Unassigned, KATHIE 350.1.13.10 [place] [facility] 4.2.7.2.686 [id number] 009 2020-07-01 2020-07-01 Laboratory Only, [facility] Test [place] 1.2.840. 114 [id number] [facility] 09:02:10 09:17:10 Only Moise Gamez S [place] 350.1.13.1 0 ity of [place] 4.2.7.2.686 [facility] [id number] [facility] [address] 2020-07-01 2020-07-01 Laboratory Only, [facility] 1.2.840.114 [id number] 09:02:10 09:17:10 Only Test [place] 350.1.13.10 [place] 4.2.7.2.686 [place] [id number] 353 2020-07-01 2020-07-01 Outpatient R KEIRA [facility] [id number] Univers 08:30:00 08:30:00 MOISE ity [facility] 2020-07-01 2020-07-01 Orders Doctor HAMMER 1.2.840.114 [id number] Univers 00:00:00 00:00:00 Only Unassigned, KATHIE 350.1.13.10 ity of [place] [facility] 4.2.7.2.686 Archie as [id number] [facility] [address] 2020-07-01 2020-07-01 Orders Doctor JAQUELIN Jorge2.840.114 [id number] 00:00:00 00:00:00 Only Unassigned, KATHIE 350.1.13.10 [place] [facility] 4.2.7.2.686 [id number] 009 2020-06-30 2020-06-30 Outpatient STLMLC STLMLC [id number] Common 00:00:00 00:00:00 [facility] 2020-06-22 2020-06-22 Outpatient STLMLC STLMLC [id number] Common 00:00:00 00:00:00 [facility] 2020-06-20 2020-06-20 [facility] 1.2.840.114 [id number] Univers 06:29:00 08:58:00 Encounter Moise [place] 350.1.13.10 ity of [place]2.7.2.686 [place] [id number] [address] 2020-06-20 2020-06-20 Outpatient [facility] JARROD [id number] Univers 06:29:00 08:58:00 MOISE ity of [facility] 2020-06-20 2020-06-20 [facility] 1.2.840.114 [id number] 06:29:00 08:58:00 Encounter Moise S [place] 350.1.13.10 [place] 4.2.7.2.686 Surgical [id number] [place] [address] 2020-06-20 2020-06-20 Anesthesia Sumit [facility] 1.2.840.11 [id number] Univers 08:03:00 08:12:00 Event Dominguez Seo 350.1.13.10 ity of [place] 4.2.7.2.686 [place] [id number] [facility] [address] 2020-06-20 2020-06-20 Anesthesia Sumit [facility] 1.2.840.11 4 [id number] 08:03:00 08:12:00 Event Dominguez Seo 350.1.13.10 [place] 4.2.7.2.686 Surgical [id number] [place] [address] 2020-06-20 2020-06-20 Orders Doctor HAMMER 1.2.840.114 [id number] Univers 00:00:00 00:00:00 Only Unassigned, KATHIE 350.1.13.10 ity of [place] [facility] 4.2.7.2.686 Archie as [id number] [address] 2020-06-20 2020-06-20 Orders Doctor JAQUELIN 1.2.840.114 [id number] 00:00:00 00:00:00 Only Unassigned, KATHIE 350.1.13.10 [place] [facility] 4.2.7.2.686 [id number] [facility] 2020-06-19 2020-06-19 Outpatient [facility] [id number] Univers 08:15:00 08:15:00 ity of [facility] 2020-06-17 2020-06-17 Senior Game Designer Elizabeth, [facility] Lab Main [facility] 1.2.8 40.114 [id number] [facility] 15:27:53 15:42:53 Visit Keira Moise Maxine Richards[place] 350.1.13.1 0 ity of [place].2.7.2.686 [place] [id number] Sc dical [address] 2020-06-17 2020-06-17 Senior Game Designer [facility] 1.2.840.114 [id number] 15:27:53 15:42:53 Visit Lab Main [place] 350.1.13.10 [place] 4.2.7.2.686 Professio [id number] [address] 2020-06-17 2020-06-17 Laboratory Only, [facility] Test [facility] 1.2.840. 114 [id number] [facility] 15:26:19 15:41:19 Only Rosemary Gamezt Maxine RichardsAlb[place] 350.1.13.1 0 ity of [place] 4.2.7.2.686 [place] [id number] [address] 2020-06-17 2020-06-17 Laboratory Only, [facility] 1.2.840.114 [id number] 15:26:19 15:41:19 Only Test [place] 350.1.13.10 [place] 4.2.7.2.686 [place] [id number] [facility] 2020-06-17 2020-06-17 Outpatient R KEIRA [facility] [id number] Univers 12:30:00 12:30:00 MOISE [facility] 2020-06-17 2020-06-17 Orders Doctor JAQUELIN 1.2.840.114 [id number] Univers 00:00:00 00:00:00 Only Unassigned, KATHIE 350.1.13.10 ity of [place] [facility] 4.2.7.2.686 Archie as [phone] [facility] [address] 2020-06-17 2020-06-17 Orders Doctor JAQUELIN 1.2.840.114 [id number] 00:00:00 00:00:00 Only Unassigned, KATHIE 350.1.13.10 [place] [facility] 4.2.7.2.686 [id number] 009 2020-05-22 2020-05-22 Outpatient R SALMA, [facility] [id number] Univers 08:50:00 08:50:00 SULAIMAN [facility] 2020-05-06 2020-05-06 Emergency Ron, [facility] 1.2.840.114 [id number] Univers 15:21:00 18:38:00 Kirstin Richardston 350.1.13.10 i ty of [place] 4.2.7.2.686 [facility] [id number] [facility] [address] [place] [address] 2020-05-06 2020-05-06 Emergency Ron, [facility] 1.2.840.114 [id number] 15:21:00 18:38:00 Kirstin [place]ston 350.1.13.10 [place] 4.2.7.2.686 [place] [id number] [facility] 2020-05-04 2020-05-04 Outpatient R [facility] [id number] Univers 09:20:00 09:20:00 [facility] 2020-05-04 2020-05-04 Laboratory Lab, Adc Fam Pob I [facility] 1.2. 840.114 [id number] Univers 08:54:13 09:14:13 Only Anene, [facility] 350.1.13.10 ity of [place] 4.2.7.2.686 Archie as Professio [id number] Sc dical nal [address] 2020-05-04 2020-05-04 Laboratory Lab, [facility] 1.2.840.114 [id number] 08:54:13 09:14:13 Only Fam Pob I Health 350.1.13.10 [place] 4.2.7.2.686 Professio [id number] nal [address] 2020-04-14 2020-04-14 Letter Jeannie Slade 1.2.840.114 [id number] Univers 00:00:00 00:00:00 (Out) KATHIE 350.1.13.10 it y of HOSPITAL 4.2.7.2.686 Archie as [phone] [address] 2020-04-14 2020-04-14 Jeannie Elizabeth 1.2.840.114 [id number] 00:00:00 00:00:00 (Out) KATHIE 350.1.13.10 HOSPITAL 4.2.7.2.686 [id number] [facility] 2020-03-25 2020-03-26 Emergency [facility] [id number] [facility] 21:13:00 02:01:00 Jessejunebay Goodman Chao 350.1.13.10 ity of [place] 4.2.7.2.686 [place] [facility] [phone] [address] 2020-03-25 2020-03-26 [facility] [id number] 21:13:00 02:01:00 Gabriele Goodman Chao 350.1.13.10 [place] 4.2.7.2.686 [place] [phone] [facility] 2020-03-18 2020-03-18 Orders Doctor HAMMER 1.2.840.114 [id number] Univers 00:00:00 00:00:00 Only Unassigned, KATHIE 350.1.13.10 ity of [place] [facility] 4.2.7.2.686 Archie as [phone] [facility] [address] 2020-03-18 2020-03-18 Orders Doctor HAMMER 1.2.840.114 [id number] 00:00:00 00:00:00 Only Unassigned, KATHIE 350.1.13.10 [place] [facility] 4.2.7.2.686 [phone] [id number] 2020-03-08 2020-03-08 Outpatient STLMLC ST[facility] [id number] Common 00:00:00 00:00:00 [facility] 2020-03-07 2020-03-07 Outpatient STLMLC STLMLC [id number] Common 00:00:00 00:00:00 [facility] 2020-01-31 2020-02-08 [facility] 1.2.840.1 [id number] [facility] 10:39:00 16:12:00 Encounter Asaf [facility] 350.1.13.10 ity of [place] 4.2.7.2.686 [facility] [phone] [address] ([facility]) 2020-01-31 2020-02-08 [facility] 1.2.840.1 [id number] 10:39:00 16:12:00 [facility] 350.1.13.10 Pasha Hinojosa 4.2.7.2.686 [facility] [id number] [place] [address] ([facility]) 2020-01-11 2020-01-11 Outpatient STLMLC STLC [id number] Common 00:00:00 00:00:00 [facility] 2020-01-06 2020-01-06 Outpatient STLMLC STLMLC [id number] Common 00:00:00 00:00:00 [facility] 2019-12-18 2019-12-18 Emergency [facility], [facility] [id number] [facility] 15:26:00 19:16:00 Mkea Marcum 350.1.13.10 ity mary Pruitt 4.2.7.2.686 [facility] [id number] [facility] [address] 2019-12-18 2019-12-18 Emergency [facility] 1.2.415.042 [id number] 15:26:00 19:16:00 Meka Marcum 350.1.13.10 [place] 4.2.7.2.686 [place] [id number] 4 2019-11-05 2019-11-05 (TEL) STLMLC STLMLC [id number] Co mmon 00:00:00 00:00:00 [facility] 2019-10-06 2019-10-06 [facility] [id number] Common 10:40:00 10:40:00 t [employer] [address] [facility] 2019-09-17 2019-09-17 [facility] [id number] Common 10:24:00 10:24:00 t [employer] [address] [facility] 2019-08-21 2019-08-21 Emergency X [facility] ERT [id number] Univers 19:42:19 23:51:00 GABRIELE li [facility] 2019-08-21 2019-08-21 Emergency [facility] [id number] Univers 19:42:19 23:51:00 Gabriele Maxine Chao 350.1.13.10 ity of [place] 4.2.7.2.686 [facility] [phone] [address] 2019-08-21 2019-08-21 Emergency [facility] [id number] 19:42:19 23:51:00 Gabriele Maxine Albion 350.1.13.10 [place] 4.2.7.2.686 [place] [id number] 4 2019-07-14 2019-07-14 [facility] 29 [id number] Common 15:00:00 15:00:00 t [employer] [address] [facility] 2019-06-25 2019-06-25 Emergency [facility] 1.2.840.114 [id number] Univers 16:52:11 20:04:00 Kirstin Chao 350.1.13.10 i ty of [place] 4.2.7.2.686 [facility] [id number] [address] 2019-06-25 2019-06-25 Emergency Ron, [facility] 1.2.840.114 [id number] 16:52:11 20:04:00 Kirstin Chao 350.1.13.10 [place] 4.2.7.2.686 [place] [id number] [facility] 2019-06-19 2019-06-19 Emergency Isabelle, [facility] [id number] [id number] [facility] 13:58:11 19:09:00 DaytonWon Marcum 350.1.13.10 ity of [place] 4.2.7.2.686 [facility] [id number] [address] 2019-06-19 2019-06-19 [facility] 1.2.121.406 [id number] 2000 13:58:11 19:09:00 Rosalinda Marcum 350.1.13.10 [place] 4.2.7.2.686 [place] [id number] [facility] 2019-06-19 2019-06-19 Orders Doctor HAMMER 1.2.840.114 [id number] Univers 00:00:00 00:00:00 Only Unassigned, AKTHIE 350.1.13.10 ity of [place] [facility] 4.2.7.2.686 [facility] [id number] [address] 2019-06-19 2019-06-19 Orders Doctor HAMMER 1.2.840.114 [id number] 00:00:00 00:00:00 Only Unassigned, KATHIE 350.1.13.10 [place] [facility] 4.2.7.2.686 [id number] [facility] 2019-05-19 2019-05-19 Emergency X [facility] ERT [id number] Univers 18:29:04 21:26:00 JADYN li of [facility] 2019-05-19 2019-05-19 Emergency [facility] [id number] Univers 18:29:04 21:26:00 Jadyn Marcum 350.1.13.10 i ty of [place] 4.2.7.2.686 [facility] [id number] [address] 2019-05-19 2019-05-19 Emergency [facility] 1.2.642.032 [id number] 18:29:04 21:26:00 Jadyn Marcum 350.1.13.10 [place] 4.2.7.2.686 [place] [id number] 084 2019-03-02 2019-03-02 Outpatient Julio Torres [id number] Common 10:40:00 10:40:00 t [employer] [address] [facility] 2019-02-04 2019-02-04 Outpatient Julio Torres 28 [id number] Common 10:55:00 10:55:00 t [employer] [address] [facility] 2018-12-24 2018-12-24 Telephone [facility] 1.2.840.114 [id number] [facility] 00:00:00 00:00:00 Milagros Chen 350.1.13.10 it y of Surgical 4.2.7.2.686 Archie as Specialti [id number] Sc dical es 198 [facility] 2018-12-24 2018-12-24 Telephone [facility] 1.2.840.114 [id number] 00:00:00 00:00:00 Milagros Chen 350.1.13.10 Surgical 4.2.7.2.686 Specialti [id number] es [address] [place] [address] 2018-12-18 2018-12-18 [facility] 1.2.840.114 [id number] [facility] 08:54:57 23:59:00 Encounter Milagros Chen 350.1.13.10 ity of Surgical 4.2.7.2.686 Archie as Specialti [id number] Sc dical es 809 [facility] 2018-12-18 2018-12-18 Office [facility] 1.2.165.796 [id number] Univers 08:37:16 09:02:40 Visit Milagros Chen 350.1.13.10 it y of Surgical 4.2.7.2.686 Archie as Specialti [id number] Me dical es 198 [facility] 2018-12-08 2018-12-08 Office [facility] [id number] [id number] Univers 15:02:42 15:51:02 Visit Milagros Chen 350.1.13.10 it y of Surgical 4.2.7.2.686 Archie as Specialti [id number] Sc dical es 198 [facility] 2018-12-05 2018-12-05 [facility] 1.2.840.114 [id number] Univers 09:47:09 23:59:00 Encounter Ector Marcum 350.1.13.10 ity [place] [id number] [facility] [address] 2018-12-05 2018-12-05 [facility] 1.2.051.292 [id number] Univers 07:55:02 09:26:33 Visit Milagros Linda [facility] 350.1.13.10 it y of Surgical 4.2.7.2.686 Archie as Specialti [id number] Sc dical es 198 [facility] 2018-12-01 2018-12-01 Emergency Jaki Polanco [facility] 1.2.840.114 [id number] Univers 14:24:08 18:38:00 Sydnie Marcum 350.1.13.10 i ty of [place] 4[place]7.2.[place] [id number] [facility] [address] 2018-11-18 2018-11-18 Transition Nhan Smith 1.2.840.114 [id number] Univers 00:00:00 00:00:00 of Care Pricilla Wills 350.1.13.10 it y of [place]7.2.[place] [id number] [facility] [address] 2018-11-15 2018-11-17 Emergency Mariana Ramirez 1.2.840. 114 [id number] Univers 09:29:33 16:00:00 Sundar Brooke 350.1.13.10 ity of [facility] 4.2.7.2.686 [place] [id number] [facility] [address] 2018-10-07 2018-10-07 Out[facility] [id number] Common 11:00:00 11:00:00 t [employer] [facility] it Drive [facility] 2018-07-28 2018-07-28 Outpatient Julio Kimt 25 [id number] Common 09:57:00 09:57:00 t [employer] [facility] it Drive [facility] 2018-07-25 2018-07-25 Outpatient Julio Kimt 25 [id number] Common 14:40:00 14:40:00 t [employer] [address] [facility] Results Test Description Test Time Test [...] 32.8 g/dL 31.6-35.1 RDW-SD (test code = 77746-6) 48.9 fL 39.0-49.9 RDW-CV (test code = 788-0) 14.6 % 12.0-15.5 PLT (test code = 777-3) 179 See_Comment [Au tomated message] The system which ge nerated this result transmit gulshan reference range: 166 - 35 8 10*3/?L. The reference range was not used to interpret th is result as normal/abnormal . MPV (test code = 93123-9) 10.9 fL 9.5-12.9 NRBC/100 WBC (test code = 0.0 See_Comment [ Automated message] The 6400746482) system which Inotrem nerated this result transmit gulshan reference range: 0.0 - 10 .0 /100 WBCs. The reference r luca was not used to interpr et this result as normal/abnor mal. NRBC x10^3 (test code = See_Comment [Au tomated message] The 2281537450) system which Inotrem nerated this result transmit gulshan reference range: 10*3/?L. The reference range was not u sed to interpret this result as normal/abnormal . GRAN MAT (NEUT) % (test code 56.0 % = 770-8) IMM GRAN % (test code = 1.00 % 6294017332) LYMPH % (test code = 736-9) 34.1 % MONO % (test code = 5905-5) 7.3 % EOS % (test code = 713-8) 1.3 % BASO % (test code = 706-2) 0.3 % GRAN MAT x10^3(ANC) (test 1.76 10*3/uL 1.88-7.09 L code = 7597155219) IMM GRAN x10^3 (test code = 0.03 10*3/uL 0.00-0.06 4632578550) LYMPH x10^3 (test code = 1.07 10*3/uL 1.32-3.29 L 731-0) MONO x10^3 (test code = 0.23 10*3/uL 0.33-0.92 L 742-7) EOS x10^3 (test code = 0.04 10*3/uL 0.03-0.39 711-2) BASO x10^3 (test code = 0.01-0.07 704-7) GIANT PLATELETS (test code = Present See_Comment A [Automated message] The 8-9) system which Inotrem nerated this result transmit gulshan reference range: (none). The reference range was not u sed to interpret this result as normal/abnormal . Lab Interpretation (test Abnormal code = 88325-5) [facility] Metabolic Panel (NA, K, CL, CO2, GLUCOSE, BUN, CREATININE, CA)2022-07-31 11:30:44 Test Item Value Reference Range Interpretation Comments NA (test code = 136 mmol/L 135-145 5811266957) K (test code = 3.7 mmol/L 3.5-5.0 1616161700) CL (test code = 109 mmol/L 98-108 H 8149272405) CO2 TOTAL (test code = 21 mmol/L 23-31 L 3229916789) AGAP (test code = 6 2-16 2559652952) BUN (test code = 11 mg/dL 7-23 0269020833) GLUCOSE (test code = 81 mg/dL 70-110 8283545503) CREATININE (test code = 0.45 mg/dL 0.50-1.04 L 2914529626) CALCIUM (test code = 8.6 mg/dL 8.6-10.6 4138585639) eGFR (test code = 142.6 mL/min/1.73m2 8868601282) KIM (test code = KIM) Association of [...] tests). Lab Interpretation Abnormal (test code = 57722-4) [facility]23 Test Item Value Reference Range Interpretation Comments LIPASE (test code = 3246568613) 307 U/L 0-220 H Lab Interpretation (test code = Abnormal 61455-5) [facility] (67620)2022-07-30 23:56:34 Test Item Value Reference Range Interpretation Comments NA (test code = 138 mmol/L 135-145 4399365357) K (test code = 3.9 mmol/L 3.5-5.0 0670843629) CL (test code = 106 mmol/L 98-108 8763579894) CO2 TOTAL (test code = 21 mmol/L 23-31 L 1455121744) AGAP (test code = 11 2-16 9172294199) BUN (test code = 12 mg/dL 7-23 1172169653) GLUCOSE (test code = 86 mg/dL 70-110 6859761018) CREATININE (test code = 0.46 mg/dL 0.50-1.04 L 5964094755) TOTAL BILI (test code = 2.7 mg/dL 0.1-1.1 H 6027144245) CALCIUM (test code = 9.0 mg/dL 8.6-10.6 6216590903) T PROTEIN (test code = 7.2 g/dL 6.3-8.2 7733514863) ALBUMIN (test code = 4.1 g/dL 3.5-5.0 9651227420) ALK PHOS (test code = 841 U/L 34-122 H 0770529497) ALTv (test code = 154 U/L 5-35 H 1742-6) AST(SGOT) (test code = 159 U/L 13-40 H 9237617390) eGFR (test code = 139.0 mL/min/1.73m2 6414629551) KIM (test code = KIM) Association of [...] tests). Lab Interpretation Abnormal (test code = 04340-0) [facility] 23[facility]56[facility]14 Test Item Value Reference Range Interpretation Comments LIPASE (test code = 0500462285) 70 U/L 0-220 Lab Interpretation (test code = Normal 83299-7) [facility] [id number] 23:54:13 Test Item Value Reference Range Interpretation Comments APTT Patient (test 26 See_Comment [Automat ed code = 3173-2) message] The system which generated this result transmitted reference range : 23 - 38 Seconds . The reference range was not used to interpr et this result as normal/abnormal . KIM (test code = KIM) The [facility] patient population mean normal value for aPTT is 30 seconds. Lab Interpretation Normal (test code = 15048-5) [facility] / [id number] 23:52:12 Test Item Value Reference Range Interpretation [...] tions. Lab Interpretation (test Normal code = 11629-9) [facility] WITH [id number] 23:44:51 Test Item Value Reference Range Interpretation Comments WBC (test code = 4.50 See_Comment [Automated 9890-2) message] The sy stem which generated this result transmitted reference range : 4.30 - 11.10 10*3/?L. The reference range was not used to interpret this result as normal/abnormal . RBC (test code = 3.16 See_Comment L [Automated 259-8) message] The sy stem which generated this [...] RDW-SD (test code = 48.9 fL 39.0-49.9 20927-0) RDW-CV (test code = 14.6 % 12.0-15.5 788-0) PLT (test code = 200 See_Comment [Automated 667-3) message] The sy stem which generated this result transmitted reference range : 166 - 358 10*3/ ?L. The reference r luca was not used to interpret this result as normal/abnormal . MPV (test code = 10.4 fL 9.5-12.9 40583-4) NRBC/100 WBC (test 0.0 See_Comment [Automat ed code = 1173307205) message] The system which generated this result transmitted reference range : 0.0 - 10.0 /100 WBCs. The refer ence range was not u sed to interpret th is result as normal/abnormal . NRBC x10^3 (test code See_Comment [Auto mated = 2002964012) message] The s ystem which generated this result transmitted reference range : 10*3/?L. The reference range was not used to interpret this result as normal/abnormal . GRAN MAT (NEUT) % 73.4 % (test code = 770-8) IMM GRAN % (test code 0.20 % = 5034073457) LYMPH % (test code = 18.9 % 736-9) MONO % (test code = 6.4 % 5905-5) EOS % (test code = 0.4 % 713-8) BASO % (test code = 0.7 % 706-2) GRAN MAT x10^3(ANC) 3.30 10*3/uL 1.88-7.09 (test code = 8770187163) IMM GRAN x10^3 (test 0.00-0.06 code = 6422255098) LYMPH x10^3 (test code 0.85 10*3/uL 1.32-3.29 L = 731-0) MONO x10^3 (test code 0.29 10*3/uL 0.33-0.92 L = 742-7) EOS x10^3 (test code = 0.03-0.39 L 711-2) BASO x10^3 (test code 0.03 10*3/uL 0.01-0.07 = 704-7) Lab Interpretation Abnormal (test code = 90175-9) [facility] (A1C)2022-04-26 11:07:42 Test Item Value Reference Range Interpretation Comments HGB A1C (test code = 4.5 % 4.0-5.7 4548-4) KIM (test code = KIM) Reference RangesNormal: <5.7%Prediabetes: 5.7 - 6.4%Diabetes: > 6.5% Lab Interpretation (test Normal code = 27119-7) [facility]A1C)2022-04-26 11:07:42 Test Item Value Reference Range Interpretation Comments HGB A1C (test code = 4.5 % 4.0-5.7 4548-4) KIM (test code = KIM) Reference RangesNormal: <5.7%Prediabetes: 5.7 - 6.4%Diabetes: > 6.5% Lab Interpretation (test Normal code = 95810-6) [facility]. METABOLIC PANEL (46356)2022-04-26 00:04:36 Test Item Value Reference Range Interpretation Comments NA (test code = 139 mmol/L 135-145 9193495310) K (test code = 4.3 mmol/L 3.5-5.0 1441426594) CL (test code = 105 mmol/L 98-108 4262897835) CO2 TOTAL (test code = 22 mmol/L 23-31 L 5696874659) AGAP (test code = 2-16 4268466751) BUN (test code = 22 mg/dL 7-23 7166004241) GLUCOSE (test code = 94 mg/dL 70-110 4601255720) CREATININE (test code = 0.86 mg/dL 0.50-1.04 6551970061) TOTAL BILI (test code = 2.1 mg/dL 0.1-1.1 H 2095722780) CALCIUM (test code = 9.0 mg/dL 8.6-10.6 1811984459) T PROTEIN (test code = 8.1 g/dL 6.3-8.2 4663154863) ALBUMIN (test code = 4.4 g/dL 3.5-5.0 6981195980) ALK PHOS (test code = 1234 U/L 34-122 H 2705415490) ALTv (test code = 166 U/L 5-35 H 1742-6) AST(SGOT) (test code = 182 U/L 13-40 H 2534893135) eGFR (test code = mL/min/1.73m2 9181212257) KIM (test code = KIM) Association of [...] tests). Lab Interpretation Abnormal (test code = 61558-2) [facility] 00:04:36 Test Item Value Reference Range Interpretation Comments LIPASE (test code = 0801906971) 137 U/L 0-220 Lab Interpretation (test code = Normal 81645-5) [facility] (27289)2022-04-26 00:04:36 Test Item Value Reference Range Interpretation Comments NA (test code = 139 mmol/L 135-145 9605345476) K (test code = 4.3 mmol/L 3.5-5.0 8439226190) CL (test code = 105 mmol/L 98-108 4492778981) CO2 TOTAL (test code = 22 mmol/L 23-31 L 1166787540) AGAP (test code = 2-16 7975402688) BUN (test code = 22 mg/dL 7-23 0140728408) GLUCOSE (test code = 94 mg/dL 70-110 9307243572) CREATININE (test code = 0.86 mg/dL 0.50-1.04 4165746551) TOTAL BILI (test code = 2.1 mg/dL 0.1-1.1 H 1643298261) CALCIUM (test code = 9.0 mg/dL 8.6-10.6 3738262118) T PROTEIN (test code = 8.1 g/dL 6.3-8.2 3753617482) ALBUMIN (test code = 4.4 g/dL 3.5-5.0 5094266725) ALK PHOS (test code = 1234 U/L 34-122 H 5903742047) ALTv (test code = 166 U/L 5-35 H 1742-6) AST(SGOT) (test code = 182 U/L 13-40 H 8338523443) eGFR (test code = mL/min/1.73m2 4938936408) KIM (test code = KIM) Association of [...] tests). Lab Interpretation Abnormal (test code = 13848-0) [facility] 00:04:36 Test Item Value Reference Range Interpretation Comments LIPASE (test code = 3957812868) 137 U/L 0-220 Lab Interpretation (test code = Normal 23847-3) [facility] [id number] 23:46:13 Test Item Value Reference Range Interpretation [...] RDW-SD (test code = 48.8 fL 39.0-49.9 10335-0) RDW-CV (test code = 14.4 % 12.0-15.5 788-0) PLT (test code = See_Comment [Automated 777-3) message] The sy stem which generated this result transmitted reference range : 166 - 358 10*3/ ?L. The reference r luca was not used to interpret this result as normal/abnormal . MPV (test code = 10.1 fL 9.5-12.9 65619-1) NRBC/100 WBC (test See_Comment [Automat ed code = 3624803428) message] The system which generated this result transmitted reference range : 0.0 - 10.0 /100 WBCs. The refer ence range was not u sed to interpret th is result as normal/abnormal . NRBC x10^3 (test code See_Comment [Auto mated = 4669733205) message] The s ystem which generated this result transmitted reference range : 10*3/?L. The reference range was not used to interpret this result as normal/abnormal . GRAN MAT (NEUT) % 70.1 % (test code = 770-8) IMM GRAN % (test code 0.20 % = 4005066188) LYMPH % (test code = 20.2 % 736-9) MONO % (test code = 8.0 % 5905-5) EOS % (test code = 1.1 % 713-8) BASO % (test code = 0.4 % 706-2) GRAN MAT x10^3(ANC) 3.22 10*3/uL 1.88-7.09 (test code = 7493651778) IMM GRAN x10^3 (test 0.00-0.06 code = 4323305994) LYMPH x10^3 (test code 0.93 10*3/uL 1.32-3.29 L = 731-0) MONO x10^3 (test code 0.37 10*3/uL 0.33-0.92 = 742-7) EOS x10^3 (test code = 0.05 10*3/uL 0.03-0.39 711-2) BASO x10^3 (test code 0.01-0.07 = 704-7) Lab Interpretation Abnormal (test code = 22047-8) [facility] WITH [id number] 23:46:13 Test Item Value Reference Range Interpretation Comments WBC (test code = See_Comment [Automated 9090-2) message] The sy stem which generated this result transmitted reference range : 4.30 - 11.10 10*3/?L. The reference range was not used to interpret this result as normal/abnormal . RBC (test code = See_Comment L [Automated 569-8) message] The sy stem which generated this [...] RDW-SD (test code = 48.8 fL 39.0-49.9 62770-8) RDW-CV (test code = 14.4 % 12.0-15.5 788-0) PLT (test code = See_Comment [Automated 777-3) message] The sy stem which generated this result transmitted reference range : 166 - 358 10*3/ ?L. The reference r luca was not used to interpret this result as normal/abnormal . MPV (test code = 10.1 fL 9.5-12.9 89118-1) NRBC/100 WBC (test See_Comment [Automat ed code = 2531178927) message] The system which generated this result transmitted reference range : 0.0 - 10.0 /100 WBCs. The refer ence range was not u sed to interpret th is result as normal/abnormal . NRBC x10^3 (test code See_Comment [Auto mated = 3766203236) message] The s ystem which generated this result transmitted reference range : 10*3/?L. The reference range was not used to interpret this result as normal/abnormal . GRAN MAT (NEUT) % 70.1 % (test code = 770-8) IMM GRAN % (test code 0.20 % = 7963224465) LYMPH % (test code = 20.2 % 736-9) MONO % (test code = 8.0 % 5905-5) EOS % (test code = 1.1 % 713-8) BASO % (test code = 0.4 % 706-2) GRAN MAT x10^3(ANC) 3.22 10*3/uL 1.88-7.09 (test code = 9387376274) IMM GRAN x10^3 (test 0.00-0.06 code = 5076022976) LYMPH x10^3 (test code 0.93 10*3/uL 1.32-3.29 L = 731-0) MONO x10^3 (test code 0.37 10*3/uL 0.33-0.92 = 742-7) EOS x10^3 (test code = 0.05 10*3/uL 0.03-0.39 711-2) BASO x10^3 (test code 0.01-0.07 = 704-7) Lab Interpretation Abnormal (test code = 25662-5) [facility] METABOLIC PANEL (NA, K, CL, CO2, GLUCOSE, BUN, CREATININE, CA)2022-02-06 10:05:29 Test Item Value Reference Range Interpretation Comments NA (test code = 137 mmol/L 135-145 7258680126) K (test code = 3.0 mmol/L 3.5-5 L 6524859153) CL (test code = 107 mmol/L 98-108 0237830378) CO2 TOTAL (test code = 23 mmol/L 23-31 1001679789) AGAP (test code = 2-16 7493835144) BUN (test code = 4 mg/dL 7-23 L 1991245580) GLUCOSE (test code = 108 mg/dL 70-110 2842589371) CREATININE (test code = 0.40 mg/dL 0.5-1.04 L 6149000959) CALCIUM (test code = 8.1 mg/dL 8.6-10.6 L 3310030122) eGFR (test code = mL/min/1.73m2 6580503230) KIM (test code = KIM) Association of [...] tests). Lab Interpretation Abnormal (test code = 03925-1) [facility] WITH [id number] 09:44:25 Test Item Value Reference Range Interpretation [...] (test code = 52.6 fL 39-49.9 H 16167-9) RDW-CV (test code = 15.3 % 12-15.5 788-0) PLT (test code = See_Comment [Automated 777-3) message] The sy stem which generated this result transmitted reference range : 166 - 358 10*3/ ?L. The reference r luca was not used to interpret this result as normal/abnormal . MPV (test code = 9.4 fL 9.5-12.9 L 56255-3) NRBC/100 WBC (test See_Comment [Automat ed code = 4169257146) message] The system which generated this result transmitted reference range : 0.0 - 10.0 /100 WBCs. The refer ence range was not u sed to interpret th is result as normal/abnormal . NRBC x10^3 (test code See_Comment [Auto mated = 8526672344) message] The s ystem which generated this result transmitted reference range : 10*3/?L. The reference range was not used to interpret this result as normal/abnormal . GRAN MAT (NEUT) % 70.4 % (test code = 770-8) IMM GRAN % (test code 0.50 % = 2048248357) LYMPH % (test code = 17.2 % 736-9) MONO % (test code = 10.3 % 5905-5) EOS % (test code = 1.3 % 713-8) BASO % (test code = 0.3 % 706-2) GRAN MAT x10^3(ANC) 2.67 10*3/uL 1.88-7.09 (test code = 5171605606) IMM GRAN x10^3 (test 0-0.06 code = [id number]) LYMPH x10^3 (test code 0.65 10*3/uL 1.32-3.29 L = 731-0) MONO x10^3 (test code 0.39 10*3/uL 0.33-0.92 = 742-7) EOS x10^3 (test code = 0.05 10*3/uL 0.03-0.39 711-2) BASO x10^3 (test code 0.01-0.07 = 704-7) Lab Interpretation Abnormal (test code = 17987-2) [id number]TOTAL CHOLESTEROL, TRIGLYCERIDES, HDL)2022-02-04 02:32:52 Test Item Value Reference Range Interpretation Comments CHOL (test code = 344 mg/dL 120-200 H [id number]) HDL (test code = 85 mg/dL See_Comment [Automated message] [id number]) The system whic h generated this result transmit gulshan reference range : >=50. The refer ence range was not u sed to interpret th is result as normal/abnormal . HDLC RATIO (test code = See_Comment [Au tomated message] [id number]) The system [employer]. generated this result transmit gulshan reference range : <=4.5. The refe rence range was not u sed to interpret th is result as normal/abnormal . TRIG (test code = 144 mg/dL 30-170 [id number]) LDL CHOL (test code = 230 mg/dL See_Comment H [Auto mated message] 20771-4) The system [employer]. generated this result transmit gulshan reference range : <=160. The refe rence range was not u sed to interpret th is result as normal/abnormal . VLDL (test code = 29 mg/dL 5-60 [id number]) Lab Interpretation (test Abnormal code = 68780-7) [facility] DRUG (IMMUNOASSAY) - COMPREHENSIVE DRUG [id number] 23:28:12 Test Item Value Reference Range Interpretation Comments SLIM S (test code = Negative Negative [id number]) BENZO S (test code = Negative Negative [id number]) TRICYCLIC (test code = Presumptive Positive Negative A 4464123238) KIM (test code = KIM) Serum Drug Screen Cutoff Ranges Barbiturates ? ? - 3 mcg/mLBenzodiazepines ?- 50 ng/mLTCA ?- 300 ng/mL Test developed and characteristics determined by [facility] Laboratory Services. The results are to be used only for medical (i.e., treatment) purposes. Unconfirmed screening results must not be used for non-medical purposes (e.g., employment testing, legal testing). 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 METABOLIC PANEL (28769) 2022-02-03 16:24:17 Test Item Value Reference Range Interpretation Comments NA (test code = 138 mmol/L 135-145 3375648302) K (test code = 4.2 mmol/L 3.5-5 9924629792) CL (test code = 102 mmol/L 98-108 8587967219) CO2 TOTAL (test code = 24 mmol/L 23-31 6530147132) AGAP (test code = 2-16 1085895700) BUN (test code = 19 mg/dL 7-23 5226481587) GLUCOSE (test code = 128 mg/dL 70-110 H 4570759197) CREATININE (test code = 0.56 mg/dL 0.5-1.04 2470404780) TOTAL BILI (test code = 2.7 mg/dL 0.1-1.1 H 1745568685) CALCIUM (test code = 8.7 mg/dL 8.6-10.6 2334768793) T PROTEIN (test code = 7.2 g/dL 6.3-8.2 7103691741) ALBUMIN (test code = 4.0 g/dL 3.5-5 9704827934) ALK PHOS (test code = 627 U/L 34-122 H 6207658530) ALTv (test code = 77 U/L 5-35 H 1742-6) AST(SGOT) (test code = 87 U/L 13-40 H 7886846504) eGFR (test code = mL/min/1.73m2 7722746189) KIM (test code = KIM) Association of [...] tests). Lab Interpretation Abnormal (test code = 67614-6) [facility] 16:23:57 Test Item Value Reference Range Interpretation Comments LIPASE (test code = 4844685943) 35 U/L 0-220 Lab Interpretation (test code = Normal 49602-1) [facility] HospitalAMYLASE2022-[facility] 16:23:11 Test Item Value Reference Range Interpretation Comments JORGE (test code = 6966812071) 42 U/L 35-110 Lab Interpretation (test code = Normal 71053-0) [facility] HospitalCB WITH [id number] 16:10:32 Test Item Value Reference Range Interpretation [...] (test code = 55.9 fL 39-49.9 H 24213-6) RDW-CV (test code = 15.9 % 12-15.5 H 788-0) PLT (test code = See_Comment [Automated 777-3) message] The sy stem which generated this result transmitted reference range : 166 - 358 10*3/ ?L. The reference r luca was not used to interpret this result as normal/abnormal . MPV (test code = 9.5 fL 9.5-12.9 29998-7) NRBC/100 WBC (test See_Comment [Automat ed code = 0405436838) message] The system which generated this result transmitted reference range : 0.0 - 10.0 /100 WBCs. The refer ence range was not u sed to interpret th is result as normal/abnormal . NRBC x10^3 (test code See_Comment [Auto mated = 0613765445) message] The s ystem which generated this result transmitted reference range : 10*3/?L. The reference range was not used to interpret this result as normal/abnormal . GRAN MAT (NEUT) % 88.9 % (test code = 770-8) IMM GRAN % (test code 0.20 % = 5430371503) LYMPH % (test code = 4.9 % 736-9) MONO % (test code = 5.8 % 5905-5) EOS % (test code = 0.0 % 713-8) BASO % (test code = 0.2 % 706-2) GRAN MAT x10^3(ANC) 4.72 10*3/uL 1.88-7.09 (test code = 7514054531) IMM GRAN x10^3 (test 0-0.06 code = 1592005526) LYMPH x10^3 (test code 0.26 10*3/uL 1.32-3.29 L = 731-0) MONO x10^3 (test code 0.31 10*3/uL 0.33-0.92 L = 742-7) EOS x10^3 (test code = 0.03-0.39 L 711-2) BASO x10^3 (test code 0.01-0.07 = 704-7) Lab Interpretation Abnormal (test code = 44552-4) [facility] WITH [id number] 10:06:02 Test Item Value Reference Range Interpretation [...] RDW-SD (test code = 45.6 fL 39.0-49.9 02193-1) RDW-CV (test code = 13.2 % 12.0-15.5 788-0) PLT (test code = See_Comment [Automated 777-3) message] The sy stem which generated this result transmitted reference range : 166 - 358 10*3/ ?L. The reference r luca was not used to interpret this result as normal/abnormal . MPV (test code = 10.1 fL 9.5-12.9 22418-2) NRBC/100 WBC (test See_Comment [Automat ed code = 6506885931) message] The system which generated this result transmitted reference range : 0.0 - 10.0 /100 WBCs. The refer ence range was not u sed to interpret th is result as normal/abnormal . NRBC x10^3 (test code <0.01 See_Comment [Auto mated = 7322470294) message] The s ystem which generated this result transmitted reference range : 10*3/?L. The reference range was not used to interpret this result as normal/abnormal . GRAN MAT (NEUT) % 47.9 % (test code = 770-8) IMM GRAN % (test code 0.30 % = 7599694912) LYMPH % (test code = 39.0 % 736-9) MONO % (test code = 9.8 % 5905-5) EOS % (test code = 2.5 % 713-8) BASO % (test code = 0.5 % 706-2) GRAN MAT x10^3(ANC) 1.76 10*3/uL 1.88-7.09 L (test code = 5269822400) IMM GRAN x10^3 (test <0.03 0.00-0.06 code = 7685372580) LYMPH x10^3 (test code 1.43 10*3/uL 1.32-3.29 = 731-0) MONO x10^3 (test code 0.36 10*3/uL 0.33-0.92 = 742-7) EOS x10^3 (test code = 0.09 10*3/uL 0.03-0.39 711-2) BASO x10^3 (test code <0.03 0.01-0.07 = 704-7) Lab Interpretation Abnormal (test code = 37977-3) [facility]. METABOLIC PANEL (78689)2021-09-08 10:01:57 Test Item Value Reference Range Interpretation Comments NA (test code = 137 mmol/L 135-145 8346207875) K (test code = 4.4 mmol/L 3.5-5.0 1481904750) CL (test code = 105 mmol/L 98-108 5353252262) CO2 TOTAL (test code = 27 mmol/L 23-31 3136839600) AGAP (test code = 2-16 3784782906) BUN (test code = 16 mg/dL 7-23 5673334474) GLUCOSE (test code = 91 mg/dL 70-110 1157088932) CREATININE (test code = 0.80 mg/dL 0.50-1.04 6218266096) TOTAL BILI (test code = 1.3 mg/dL 0.1-1.1 H 4626463030) CALCIUM (test code = 8.9 mg/dL 8.6-10.6 9641567404) T PROTEIN (test code = 7.4 g/dL 6.3-8.2 8051755263) ALBUMIN (test code = 4.0 g/dL 3.5-5.0 0834785334) ALK PHOS (test code = 422 U/L 34-122 H 7339072481) ALTv (test code = 64 U/L 5-35 H 2-6) AST(SGOT) (test code = 53 U/L 13-40 H 1970772334) eGFR (test code = mL/min/1.73m2 9860952069) KIM (test code = KIM) Association of [...] tests). Lab Interpretation Abnormal (test code = 27041-6) [facility]MAGN[facility]IUM2022-[facility]-27 10:01:57 Test Item Value Reference Range Interpretation Comments MAGNESIUM (test code = 4476086016) 2.1 mg/dL 1.7-2.4 Lab Interpretation (test code = Normal 64718-6) [facility] HospitalEBV QUANTITATIVE [id number] 14:36:03 Test Item Value Reference Range Interpretation Comments Jocelyn-Quiros Plasma Virus, Quant. Source (test code = 65024-5) Jocelyn-Quiros <390 cpy/mL Virus, Quant. Copy/mL (test code = 62758-5) Jocelyn-Quiros <2.6 log INTERPRETIVE Virus, Quant. Log INFORMATIO N: Jocelyn (test code = [place] [address]-1) Quantitative PC RThe quantitative ra nge of [...] of detection by th e assay.Performed by [facility],[address] [place] <truncated> [facility] HospitalMAGNESIUM2022-05-26 08:53:00 Test Item Value Reference Range Interpretation Comments MAGNESIUM (test code = 8398562646) 1.6 mg/dL 1.7-2.4 L Lab Interpretation (test code = Abnormal 62313-5) [facility] HospitalBASIC METABOLIC PANEL (NA, K, CL, CO2, GLUCOSE, BUN, CREATININE, CA)2021-09-07 08:53:00 Test Item Value Reference Range Interpretation Comments NA (test code = 136 mmol/L 135-145 1520153079) K (test code = 4.6 mmol/L 3.5-5.0 3707242408) CL (test code = 103 mmol/L 98-108 7616008792) CO2 TOTAL (test code 26 mmol/L 23-31 = 9308010771) AGAP (test code = 2-16 7768313876) BUN (test code = 14 mg/dL 7-23 1780836351) GLUCOSE (test code = 100 mg/dL 70-110 3335644617) CREATININE (test code 0.64 mg/dL 0.50-1.04 = 1771974015) CALCIUM (test code = 8.9 mg/dL 8.6-10.6 9719701678) eGFR (test code = mL/min/1.73m2 0936012720) KIM (test code = KIM) Association of [...] or urine or abnormalities in imaging tests). [facility] HospitalHEPAT[facility] FUNCTION PANEL (92202) (ALB,T.PRO,BILI T,BU/BC,ALT,AST,ALK PHOS)2021-09-07 08:53:00 Test Item Value Reference Range Interpretation Comments TOTAL BILI (test code = 9371829405) 1.2 mg/dL 0.1-1.1 H BILI UNCON (test code = 8146109584) 0.3 mg/dL 0.1-1.1 BILI CONJ (test code = 6850137548) 0.0 mg/dL 0.0-0.3 T PROTEIN (test code = 2266950610) 7.2 g/dL 6.3-8.2 ALBUMIN (test code = 3011589398) 3.9 g/dL 3.5-5.0 ALK PHOS (test code = 0549384476) 449 U/L 34-122 H ALTv (test code = 1742-6) 75 U/L 5-35 H AST(SGOT) (test code = 0855296354) 55 U/L 13-40 H Lab Interpretation (test code = Abnormal 34012-4) [facility] WITH [id number] 08:24:58 Test Item Value Reference Range Interpretation [...] RDW-SD (test code = 45.1 fL 39.0-49.9 63662-1) RDW-CV (test code = 13.2 % 12.0-15.5 788-0) PLT (test code = See_Comment L [Automated 777-3) message] The sy stem which generated this result transmitted reference range : 166 - 358 10*3/ ?L. The reference r luca was not used to interpret this result as normal/abnormal . MPV (test code = 10.0 fL 9.5-12.9 55903-8) NRBC/100 WBC (test See_Comment [Automat ed code = 6882979844) message] The system which generated this result transmitted reference range : 0.0 - 10.0 /100 WBCs. The refer ence range was not u sed to interpret th is result as normal/abnormal . NRBC x10^3 (test code <0.01 See_Comment [Auto mated = 2846546743) message] The s ystem which generated this result transmitted reference range : 10*3/?L. The reference range was not used to interpret this result as normal/abnormal . GRAN MAT (NEUT) % 41.2 % (test code = 770-8) IMM GRAN % (test code 0.30 % = 6377858830) LYMPH % (test code = 45.5 % 736-9) MONO % (test code = 10.0 % 5905-5) EOS % (test code = 2.3 % 713-8) BASO % (test code = 0.7 % 706-2) GRAN MAT x10^3(ANC) 1.24 10*3/uL 1.88-7.09 L (test code = 5509070177) IMM GRAN x10^3 (test <0.03 0.00-0.06 code = 3277126557) LYMPH x10^3 (test code 1.37 10*3/uL 1.32-3.29 = 731-0) MONO x10^3 (test code 0.30 10*3/uL 0.33-0.92 L = 742-7) EOS x10^3 (test code = 0.07 10*3/uL 0.03-0.39 711-2) BASO x10^3 (test code <0.03 0.01-0.07 = 704-7) Lab Interpretation Abnormal (test code = 17206-8) [facility] HospitalANTI-NUCLEAR ANTIBODY-PATHOLOGIST [id number] 17:03:59ANA - Pathologist InterpretationANA HEp-2 IIFA Pathologist [...] ? Marnie Mayorga MD ?09/06/2021 ?12:02 PM ?[facility] (NA, K, CL, CO2, GLUCOSE, BUN, CREATININE, CA)2021-09-06 10:30:13 Test Item Value Reference Range Interpretation Comments NA (test code = 137 mmol/L 135-145 8706550240) K (test code = 4.5 mmol/L 3.5-5.0 Slight hemoly sis 5350784513) CL (test code = 105 mmol/L 98-108 4808584141) CO2 TOTAL (test 27 mmol/L 23-31 code = 9670820890) AGAP (test code = 2-16 8242522160) BUN (test code = 15 mg/dL 7-23 Slight hemo lysis 0280742948) GLUCOSE (test code 102 mg/dL 70-110 = 6048976470) CREATININE (test 0.70 mg/dL 0.50-1.04 code = 1001308370) CALCIUM (test code 8.7 mg/dL 8.6-10.6 = 0399819047) eGFR (test code = mL/min/1.73m2 7340953895) KIM (test code = Association of KIM) [...] or urine or abnormalities in imaging tests). [facility] HospitalHEPAT[facility] FUNCTION PANEL (20100) (ALB,T.PRO,BILI T,BU/BC,ALT,AST,ALK PHOS)2021-09-06 10:30:13 Test Item Value Reference Range Interpretation Comments TOTAL BILI (test code = 0850545077) 1.3 mg/dL 0.1-1.1 H BILI UNCON (test code = 8850307281) 0.3 mg/dL 0.1-1.1 BILI CONJ (test code = 7845619946) 0.0 mg/dL 0.0-0.3 T PROTEIN (test code = 5613749061) 7.2 g/dL 6.3-8.2 ALBUMIN (test code = 4467257049) 3.9 g/dL 3.5-5.0 ALK PHOS (test code = 8829086294) 447 U/L 34-122 H ALTv (test code = 1742-6) 89 U/L 5-35 H AST(SGOT) (test code = 8568711455) 69 U/L 13-40 H Lab Interpretation (test code = Abnormal 22459-2) [facility]MAG[facility]UM2022-05-25 10:30:13 Test Item Value Reference Range Interpretation Comments MAGNESIUM (test code = 5319827454) 1.6 mg/dL 1.7-2.4 L Lab Interpretation (test code = Abnormal 52683-0) [facility] HospitalANTI-NUCLEAR ANTIBODY [id number] 01:05:07 Test Item Value Reference Range Interpretation Comments LESLY Titer by IFA >=1:1280 (test code = 9036928930) LESLY Pattern Speckled Cytoplasmic (test code = staining reacti ons 2505031521) observed. KIM (test code = Anti-nuclear KIM) [...] specimen will be held for 7 days. [facility] HospitalSMOO MUSCLE AB,IGG W/[id number] 21:57:55 Test Item Value Reference Range Interpretation Comments F-ACTIN (SMOOTH See_Comment If F-Actin (Smooth MUSCLE) AB, Muscle) Antibod y, IgG is IGG(BEAKER) (test negative, the Smooth Muscle code = 72947-5) Antibody tit er by IFA is not [...] for A IH is strong.Performe d By: [facility] [place] [id number] Director: Praveena Mantilla MD [Automated mess age] The system which ge nerated this result transmit gulshan reference range : 0 - 19 Units. The refe rence range was not used to interpret this result as normal/abnormal . [facility] HospitalMITOCHONDRIAL M2 AB, [id number] 21:57:54 Test Item Value Reference Range Interpretation Comments AMA (test code = See_Comment H REFERENCE I NTERVAL: 65316-0) Mitochondrial ( M2) Antibody, IgG ? ?20.0 [...] rule out PBC.Perform ed By: [facility] [place], [place] [id number] Director: Praveena Mantilla MD [Aut omated message] The sy stem which generated this result transmit gulshan reference range : 0.0 - 24.9 Units. The reference range was not used to int erpret this result as normal/abnormal . Lab Interpretation Abnormal (test code = 49723-2) [facility] HospitalMAGNESIUM2022-05-24 09:23:46 Test Item Value Reference Range Interpretation Comments MAGNESIUM (test code = 9204238401) 1.9 mg/dL 1.7-2.4 Lab Interpretation (test code = Normal 21340-2) [facility] (NA, K, CL, CO2, GLUCOSE, BUN, CREATININE, CA)2021-09-05 09:23:46 Test Item Value Reference Range Interpretation Comments NA (test code = 140 mmol/L 135-145 1111966962) K (test code = 4.5 mmol/L 3.5-5.0 6363901565) CL (test code = 106 mmol/L 98-108 8052494191) CO2 TOTAL (test code 27 mmol/L 23-31 = 0851702363) AGAP (test code = 2-16 3728481050) BUN (test code = 16 mg/dL 7-23 7727450210) GLUCOSE (test code = 89 mg/dL 70-110 0478627939) CREATININE (test code 0.67 mg/dL 0.50-1.04 = 7957097685) CALCIUM (test code = 9.0 mg/dL 8.6-10.6 4593263242) eGFR (test code = mL/min/1.73m2 9862462919) KIM (test code = KIM) Association of [...] or urine or abnormalities in imaging tests). [facility] HospitalHEPAT[facility] FUNCTION PAN[facility] (81118) (ALB,T.PRO,BILI T,BU/BC,ALT,AST,ALK PHOS)2021-09-05 09:23:46 Test Item Value Reference Range Interpretation Comments TOTAL BILI (test code = 5308157816) 1.5 mg/dL 0.1-1.1 H BILI UNCON (test code = 1670347488) 0.3 mg/dL 0.1-1.1 BILI CONJ (test code = 3226175120) 0.0 mg/dL 0.0-0.3 T PROTEIN (test code = 3577331267) 7.1 g/dL 6.3-8.2 ALBUMIN (test code = 9573997534) 3.9 g/dL 3.5-5.0 ALK PHOS (test code = 2553728216) 558 U/L 34-122 H ALTv (test code = 1742-6) 112 U/L 5-35 H AST(SGOT) (test code = 4494057655) 82 U/L 13-40 H Lab Interpretation (test code = Abnormal 21967-3) [facility] WITH [id number] 09:09:07 Test Item Value Reference Range Interpretation [...] RDW-SD (test code = 45.7 fL 39.0-49.9 73289-9) RDW-CV (test code = 13.2 % 12.0-15.5 788-0) PLT (test code = See_Comment L [Automated 777-3) message] The sy stem which generated this result transmitted reference range : 166 - 358 10*3/ ?L. The reference r luca was not used to interpret this result as normal/abnormal . MPV (test code = 9.7 fL 9.5-12.9 19312-9) NRBC/100 WBC (test See_Comment [Automat ed code = 2341122134) message] The system which generated this result transmitted reference range : 0.0 - 10.0 /100 WBCs. The refer ence range was not u sed to interpret th is result as normal/abnormal . NRBC x10^3 (test code <0.01 See_Comment [Auto mated = 2923907598) message] The s ystem which generated this result transmitted reference range : 10*3/?L. The reference range was not used to interpret this result as normal/abnormal . GRAN MAT (NEUT) % 43.5 % (test code = 770-8) IMM GRAN % (test code 0.30 % = 8338904797) LYMPH % (test code = 39.6 % 736-9) MONO % (test code = 12.8 % 5905-5) EOS % (test code = 3.5 % 713-8) BASO % (test code = 0.3 % 706-2) GRAN MAT x10^3(ANC) 1.25 10*3/uL 1.88-7.09 L (test code = 7147965933) IMM GRAN x10^3 (test <0.03 0.00-0.06 code = 1033113398) LYMPH x10^3 (test code 1.14 10*3/uL 1.32-3.29 L = 731-0) MONO x10^3 (test code 0.37 10*3/uL 0.33-0.92 = 742-7) EOS x10^3 (test code = 0.10 10*3/uL 0.03-0.39 711-2) BASO x10^3 (test code <0.03 0.01-0.07 = 704-7) Lab Interpretation Abnormal (test code = 36033-8) [facility] HospitalANTI-NUCLEAR ANTIBODY [id number] 22:01:12 Test Item Value Reference Range Interpretation Comments LESLY (test code = Cytoplasmic staining Negative A 4618812689) observed KIM (test code = KIM) Negative: [...] observed." Lab Interpretation (test Abnormal code = 93996-0) [facility] HospitalCMV BY [id number] 17:58:08 Test Item Value Reference Range Interpretation Comments Specimen Tested Plasma (test code = 7190693502) CMV PCR - log <2.5 See_Comment [Automated IU/mL (test message] The code = 22507-9) system which generated this result transmitted reference range : <2.5 log IU/mL. The reference range was not used to interpr et this result as normal/abnormal . CMV PCR - IU/mL <300 See_Comment [Automated (test code = message] The 67891-6) system which generated this result transmitted reference range : <300 IU/mL. The reference range was not used to interpret this result as normal/abnormal . CMV PCR - log <2.7 See_Comment [Automated copies/mL (test message] The code = 13019-7) system which generated this result transmitted reference range : <2.7 log copies/mL. The reference range was not used to interpret this result as normal/abnormal . CMV PCR - <516 See_Comment [Automated copies/mL (test message] The code = 39570-0) system which generated this result transmitted reference [...] This is a laboratory-developed test using a sports book board attendant labeled ASR (Analyte Specific Reagent) as the reagent providing the specificity of the assay. ?This test was developed and its performance characteristics determined by [facility] Clinical Microbiology Laboratory. It has not [...] to perform high complexity clinical laboratory testing. [facility] WITH [id number] 10:05:58 Test Item Value Reference Range Interpretation [...] RDW-SD (test code = 45.3 fL 39.0-49.9 18824-6) RDW-CV (test code = 13.1 % 12.0-15.5 788-0) PLT (test code = See_Comment L [Automated 777-3) message] The sy stem which generated this result transmitted reference range : 166 - 358 10*3/ ?L. The reference r luca was not used to interpret this result as normal/abnormal . MPV (test code = 9.8 fL 9.5-12.9 74800-5) NRBC/100 WBC (test See_Comment [Automat ed code = 1637813119) message] The system which generated this result transmitted reference range : 0.0 - 10.0 /100 WBCs. The refer ence range was not u sed to interpret th is result as normal/abnormal . NRBC x10^3 (test code <0.01 See_Comment [Auto mated = 9683042584) message] The s ystem which generated this result transmitted reference range : 10*3/?L. The reference range was not used to interpret this result as normal/abnormal . GRAN MAT (NEUT) % 46.2 % (test code = 770-8) IMM GRAN % (test code 0.30 % = 9491018034) LYMPH % (test code = 36.6 % 736-9) MONO % (test code = 14.2 % 5905-5) EOS % (test code = 2.4 % 713-8) BASO % (test code = 0.3 % 706-2) GRAN MAT x10^3(ANC) 1.36 10*3/uL 1.88-7.09 L (test code = 5495615019) IMM GRAN x10^3 (test <0.03 0.00-0.06 code = 2354893700) LYMPH x10^3 (test code 1.08 10*3/uL 1.32-3.29 L = 731-0) MONO x10^3 (test code 0.42 10*3/uL 0.33-0.92 = 742-7) EOS x10^3 (test code = 0.07 10*3/uL 0.03-0.39 711-2) BASO x10^3 (test code <0.03 0.01-0.07 = 704-7) Lab Interpretation Abnormal (test code = 60667-7) [facility]52 Test Item Value Reference Range Interpretation Comments MAGNESIUM (test code = 3753172225) 2.0 mg/dL 1.7-2.4 Lab Interpretation (test code = Normal 49016-8) [facility] METABOLIC PANEL (NA, K, CL, CO2, GLUCOSE, BUN, CREATININE, CA)2021-09-04 09:55:52 Test Item Value Reference Range Interpretation Comments NA (test code = 140 mmol/L 135-145 8111526712) K (test code = 4.2 mmol/L 3.5-5.0 1833191583) CL (test code = 107 mmol/L 98-108 4701584408) CO2 TOTAL (test code 26 mmol/L 23-31 = 9056421473) AGAP (test code = 2-16 7623033983) BUN (test code = 20 mg/dL 7-23 7098956904) GLUCOSE (test code = 106 mg/dL 70-110 4596309178) CREATININE (test code 0.86 mg/dL 0.50-1.04 = 9669938823) CALCIUM (test code = 8.8 mg/dL 8.6-10.6 9847832111) eGFR (test code = mL/min/1.73m2 4844202582) KIM (test code = KIM) Association of [...] or urine or abnormalities in imaging tests). [facility] (41892[facility] (ALB,T.PRO,BILI T,BU/BC,ALT,AST,ALK PHOS)2021-09-04 09:55:52 Test Item Value Reference Range Interpretation Comments TOTAL BILI (test code = 0134790586) 1.8 mg/dL 0.1-1.1 H BILI UNCON (test code = 3620364648) 0.6 mg/dL 0.1-1.1 BILI CONJ (test code = 2499832332) 0.0 mg/dL 0.0-0.3 T PROTEIN (test code = 8161048399) 7.1 g/dL 6.3-8.2 ALBUMIN (test code = 2507757990) 3.9 g/dL 3.5-5.0 ALK PHOS (test code = 1925565747) 624 U/L 34-122 H ALTv (test code = 1742-6) 149 U/L 5-35 H AST(SGOT) (test code = 8722185848) 120 U/L 13-40 H Lab Interpretation (test code = Abnormal 51140-5) [facility] WITH [id number] 10:18:25 Test Item Value Reference Range Interpretation Comments WBC (test code = See_Comment L [Automated 7290-2) message] The sy stem which generated this result transmitted reference range : 4.30 - 11.10 10*3/?L. The reference range was not used to interpret this result as normal/abnormal . RBC (test code = See_Comment L [Automated 589-8) message] The sy stem which generated this [...] RDW-SD (test code = 46.3 fL 39.0-49.9 01237-4) RDW-CV (test code = 13.5 % 12.0-15.5 788-0) PLT (test code = See_Comment L [Automated 777-3) message] The sy stem which generated this result transmitted reference range : 166 - 358 10*3/ ?L. The reference r luca was not used to interpret this result as normal/abnormal . MPV (test code = 9.5 fL 9.5-12.9 01259-0) NRBC/100 WBC (test See_Comment [Automat ed code = [id number]) message] The system which generated this result transmitted reference range : 0.0 - 10.0 /100 WBCs. The refer ence range was not u sed to interpret th is result as normal/abnormal . NRBC x10^3 (test code <0.01 See_Comment [Auto mated = [id number]) message] The s ystem which generated this result transmitted reference range : 10*3/?L. The reference range was not used to interpret this result as normal/abnormal . GRAN MAT (NEUT) % 49.9 % (test code = 770-8) IMM GRAN % (test code 0.00 % = 6930977739) LYMPH % (test code = 33.0 % 736-9) MONO % (test code = 14.2 % 5905-5) EOS % (test code = 2.6 % 713-8) BASO % (test code = 0.3 % 706-2) GRAN MAT x10^3(ANC) 1.51 10*3/uL 1.88-7.09 L (test code = 4523926825) IMM GRAN x10^3 (test <0.03 0.00-0.06 code = 2977548309) LYMPH x10^3 (test code 1.00 10*3/uL 1.32-3.29 L = 731-0) MONO x10^3 (test code 0.43 10*3/uL 0.33-0.92 = 742-7) EOS x10^3 (test code = 0.08 10*3/uL 0.03-0.39 711-2) BASO x10^3 (test code <0.03 0.01-0.07 = 704-7) Lab Interpretation Abnormal (test code = 11157-0) [facility]. METABOLIC PANEL (59621)2021-09-03 10:04:46 Test Item Value Reference Range Interpretation Comments NA (test code = 140 mmol/L 135-145 9555471176) K (test code = 4.5 mmol/L 3.5-5.0 1978412308) CL (test code = 107 mmol/L 98-108 6722513657) CO2 TOTAL (test code = 22 mmol/L 23-31 L 8030612707) AGAP (test code = 2-16 4095545911) BUN (test code = 20 mg/dL 7-23 6165645980) GLUCOSE (test code = 84 mg/dL 70-110 4769216938) CREATININE (test code = 0.92 mg/dL 0.50-1.04 7547490754) TOTAL BILI (test code = 2.2 mg/dL 0.1-1.1 H 9631443154) CALCIUM (test code = 8.9 mg/dL 8.6-10.6 0358007979) T PROTEIN (test code = 7.4 g/dL 6.3-8.2 8392645400) ALBUMIN (test code = 4.1 g/dL 3.5-5.0 9647847406) ALK PHOS (test code = 658 U/L 34-122 H 7386819136) ALTv (test code = 169 U/L 5-35 H 1742-6) AST(SGOT) (test code = 163 U/L 13-40 H 8357706366) eGFR (test code = mL/min/1.73m2 6373287083) KIM (test code = KIM) Association of [...] tests). Lab Interpretation Abnormal (test code = 36879-5) [facility] 10:04:46 Test Item Value Reference Range Interpretation Comments MAGNESIUM (test code = 3085243868) 2.0 mg/dL 1.7-2.4 Lab Interpretation (test code = Normal 98560-4) [facility]AL[facility] 1 [id number] 19:24:55 Test Item Value Reference Range Interpretation Comments Anti-Trypsin (test code = 174 mg/dL 83-199 4072863390) Lab Interpretation (test code = Normal 47753-0) [facility]LASMIN20[facility] 19:24:50 Test Item Value Reference Range Interpretation Comments CERULO (test code = 2511558799) 48 mg/dL 25-63 Lab Interpretation (test code = Normal 41071-0) [facility]IMMUNOGLOBULIN [id number] 19:24:45 Test Item Value Reference Range Interpretation Comments IgG (test code = 4966298952) 1210 mg/dL 636-1600 Lab Interpretation (test code = Normal 72616-9) [facility]TIBODY (IGG AND IGM)2021-09-02 18:39:52 Test Item Value Reference Range Interpretation Comments HAV Total (test code Positive = 1463301460) HAVT Semi-Quantitative (test code = 5645753275) KIM (test code = KIM) Indicates past or present infection with HAV or exposure to HAV due to vaccination. [facility]FERRITIN [id number] 18:15:24 Test Item Value Reference Range Interpretation Comments FERRITIN (test code = 63.8 ng/mL 11.0-264.0 4057297844) KIM (test code = KIM) Biotin has been reported to cause a negative bias, interpret results relative to patient's use of biotin. Lab Interpretation (test Normal code = 38186-5) [facility] HospitalHEPATITIS B SURFACE [id number] 18:11:43 Test Item Value Reference Range Interpretation Comments HBsAg Semi-Quantitative (test code = Negative Negative 5195-3) [facility] [id number] 17:43:23 Test Item Value Reference Range Interpretation Comments HBsAB (test code = Negative 0262277607) HBsAb mIU/mL Semi-Quantitative (test code = 2932005103) KIM (test code = Interpretation: KIM) ?Hepatitis B Surface Antibody ? Negative - Patient is considered to be not immune to infection with HBV. ? ? Positive - Anti-HBs detected at greater than or equal to 12 mIU/mL. ?Patient is considered to be immune to infection with HBV. ? [facility]HBC ANTIBODY (IGM & IGG)2021-09-02 17:43:23 Test Item Value Reference Range Interpretation Comments HBC (test code = 7074495191) Negative HBC Semi-Quantitative (test code = 9484545204) [facility] HospitalHCV [id number] 17:43:23 Test Item Value Reference Range Interpretation Comments HCV Ab (test code = 25680-2) Negative HCV Semi-Quantitative (test code = 44539-7) [facility] 17:40:42 Test Item Value Reference Range Interpretation Comments MAGNESIUM (test code = 6463918107) 1.9 mg/dL 1.7-2.4 Lab Interpretation (test code = Normal 37894-3) [facility]PHOSPHORUS2022-05-21 17:40:42 Test Item Value Reference Range Interpretation Comments PHOSPHORUS (test code = 8911568218) 4.0 mg/dL 2.5-5.0 Lab Interpretation (test code = Normal 54555-2) [facility]COMP. METABOLIC PANEL ([id number])2021-09-02 17:40:42 Test Item Value Reference Range Interpretation Comments NA (test code = 138 mmol/L 135-145 0987505593) K (test code = 4.2 mmol/L 3.5-5.0 5891686595) CL (test code = 106 mmol/L 98-108 3324533438) CO2 TOTAL (test code = 24 mmol/L 23-31 8372534555) AGAP (test code = 2-16 6365892868) BUN (test code = 14 mg/dL 7-23 3038398616) GLUCOSE (test code = 88 mg/dL 70-110 9691989844) CREATININE (test code = 0.60 mg/dL 0.50-1.04 3862482771) TOTAL BILI (test code = 2.1 mg/dL 0.1-1.1 H 0699759475) CALCIUM (test code = 8.8 mg/dL 8.6-10.6 1724836649) T PROTEIN (test code = 7.3 g/dL 6.3-8.2 8287375336) ALBUMIN (test code = 4.0 g/dL 3.5-5.0 5230355510) ALK PHOS (test code = 659 U/L 34-122 H 4696021356) ALTv (test code = 183 U/L 5-35 H 1742-6) AST(SGOT) (test code = 167 U/L 13-40 H 7189311730) eGFR (test code = mL/min/1.73m2 8719237249) KIM (test code = KIM) Association of [...] tests). Lab Interpretation Abnormal (test code = 70823-5) [facility] HospitalACETAMINOPHEN2022-05-21 16:56:49 Test Item Value Reference Range Interpretation Comments ACETAMINOP (test code = <10.0 10.0-30.0 L 5653170728) KMI (test code = KIM) Toxic: Greater than 200 ug/mL @ 4 hour post ingestion or greater than 50 ug/mL @ 12 hour post ingestion Lab Interpretation (test Abnormal code = 17605-7) [facility] WITH [id number] 16:41:43 Test Item Value Reference Range Interpretation Comments WBC (test code = See_Comment L [Automated 0190-2) message] The sy stem which generated this result transmitted reference range : 4.30 - 11.10 10*3/?L. The reference range was not used to interpret this result as normal/abnormal . RBC (test code = See_Comment L [Automated 179-8) message] The sy stem which generated this [...] RDW-SD (test code = 47.5 fL 39.0-49.9 48454-2) RDW-CV (test code = 13.9 % 12.0-15.5 788-0) PLT (test code = See_Comment L [Automated 777-3) message] The sy stem which generated this result transmitted reference range : 166 - 358 10*3/ ?L. The reference r luca was not used to interpret this result as normal/abnormal . MPV (test code = 9.9 fL 9.5-12.9 24830-5) NRBC/100 WBC (test See_Comment [Automat ed code = 7347733044) message] The system which generated this result transmitted reference range : 0.0 - 10.0 /100 WBCs. The refer ence range was not u sed to interpret th is result as normal/abnormal . NRBC x10^3 (test code <0.01 See_Comment [Auto mated = 0456852903) message] The s ystem which generated this result transmitted reference range : 10*3/?L. The reference range was not used to interpret this result as normal/abnormal . GRAN MAT (NEUT) % 47.4 % (test code = 770-8) IMM GRAN % (test code 0.30 % = 1139763784) LYMPH % (test code = 37.4 % 736-9) MONO % (test code = 12.1 % 5905-5) EOS % (test code = 2.5 % 713-8) BASO % (test code = 0.3 % 706-2) GRAN MAT x10^3(ANC) 1.52 10*3/uL 1.88-7.09 L (test code = 1001159303) IMM GRAN x10^3 (test <0.03 0.00-0.06 code = 3585686562) LYMPH x10^3 (test code 1.20 10*3/uL 1.32-3.29 L = 731-0) MONO x10^3 (test code 0.39 10*3/uL 0.33-0.92 = 742-7) EOS x10^3 (test code = 0.08 10*3/uL 0.03-0.39 711-2) BASO x10^3 (test code <0.03 0.01-0.07 = 704-7) Lab Interpretation Abnormal (test code = 03319-3) [facility] HospitalProthrombin Time (PTT) / [id number] 15:58:16 Test Item Value Reference Range Interpretation [...] tions. Lab Interpretation (test Normal code = 19504-3) [facility] HospitalTROPONIN [id number] 19:18:37 Test Item Value Reference Interpretation Comments Range TROPONIN I (test 0.004 ng/mL See_Comment [Automated code = 1973124476) message] The system which generated this result [...] biotin. Lab Interpretation Normal (test code = 39851-1) [facility]. METABOLIC PANEL ([id number])2021-09-01 19:07:17 Test Item Value Reference Range Interpretation Comments NA (test code = 139 mmol/L 135-145 3171964470) K (test code = 4.5 mmol/L 3.5-5.0 7013530919) CL (test code = 104 mmol/L 98-108 4559806462) CO2 TOTAL (test code = 21 mmol/L 23-31 L 5655244579) AGAP (test code = 2-16 2841972034) BUN (test code = 17 mg/dL 7-23 5257885412) GLUCOSE (test code = 90 mg/dL 70-110 5712685876) CREATININE (test code = 0.63 mg/dL 0.50-1.04 2854009768) TOTAL BILI (test code = 1.6 mg/dL 0.1-1.1 H 6362370175) CALCIUM (test code = 9.5 mg/dL 8.6-10.6 8753149549) T PROTEIN (test code = 9.0 g/dL 6.3-8.2 H 4189643544) ALBUMIN (test code = 4.9 g/dL 3.5-5.0 3616496041) ALK PHOS (test code = 820 U/L 34-122 H 4633046381) ALTv (test code = 238 U/L 5-35 H 1742-6) AST(SGOT) (test code = 256 U/L 13-40 H 4281377505) eGFR (test code = mL/min/1.73m2 8985495844) KIM (test code = KIM) Association of [...] tests). Lab Interpretation Abnormal (test code = 48115-1) [facility]20[facility] 19:07:17 Test Item Value Reference Range Interpretation Comments MAGNESIUM (test code = 3489786428) 1.8 mg/dL 1.7-2.4 Lab Interpretation (test code = Normal 15423-4) [facility]LIPASE2022[facility] 19:06:57 Test Item Value Reference Range Interpretation Comments LIPASE (test code = 2704072913) 85 U/L 0-220 Lab Interpretation (test code = Normal 93849-4) [facility] WITH [id number] 18:56:38 Test Item Value Reference Range Interpretation Comments WBC (test code = See_Comment [Automated 9152-2) message] The sy stem which generated this result transmitted reference range : 4.30 - 11.10 10*3/?L. The reference range was not used to interpret this result as normal/abnormal . RBC (test code = See_Comment [Automated 796-8) message] The sy stem which generated this [...] RDW-SD (test code = 48.2 fL 39.0-49.9 64187-0) RDW-CV (test code = 14.1 % 12.0-15.5 788-0) PLT (test code = See_Comment [Automated 777-3) message] The sy stem which generated this result transmitted reference range : 166 - 358 10*3/ ?L. The reference r luca was not used to interpret this result as normal/abnormal . MPV (test code = 9.9 fL 9.5-12.9 84340-7) NRBC/100 WBC (test See_Comment [Automat ed code = 8712511368) message] The system which generated this result transmitted reference range : 0.0 - 10.0 /100 WBCs. The refer ence range was not u sed to interpret th is result as normal/abnormal . NRBC x10^3 (test code <0.01 See_Comment [Auto mated = 3934930901) message] The s ystem which generated this result transmitted reference range : 10*3/?L. The reference range was not used to interpret this result as normal/abnormal . GRAN MAT (NEUT) % 65.1 % (test code = 770-8) IMM GRAN % (test code 0.40 % = 7763594561) LYMPH % (test code = 21.5 % 736-9) MONO % (test code = 11.0 % 5905-5) EOS % (test code = 1.6 % 713-8) BASO % (test code = 0.4 % 706-2) GRAN MAT x10^3(ANC) 3.33 10*3/uL 1.88-7.09 (test code = 5937274425) IMM GRAN x10^3 (test <0.03 0.00-0.06 code = 5117127074) LYMPH x10^3 (test code 1.10 10*3/uL 1.32-3.29 L = 731-0) MONO x10^3 (test code 0.56 10*3/uL 0.33-0.92 = 742-7) EOS x10^3 (test code = 0.08 10*3/uL 0.03-0.39 711-2) BASO x10^3 (test code <0.03 0.01-0.07 = 704-7) Lab Interpretation Abnormal (test code = 93829-7) [facility] [id number] 16:53:34 Test Item Value Reference Interpretation Comments Range TROPONIN I (test 0.003 ng/mL See_Comment [Automated code = 2296220137) message] The system which generated this result [...] biotin. Lab Interpretation Normal (test code = 77280-0) [facility]OLIC [facility] (61435)2021-08-27 16:42:16 Test Item Value Reference Range Interpretation Comments NA (test code = 139 mmol/L 135-145 0086982700) K (test code = 4.2 mmol/L 3.5-5.0 1701449927) CL (test code = 104 mmol/L 98-108 0083028747) CO2 TOTAL (test code = 23 mmol/L 23-31 8331854331) AGAP (test code = 2-16 4325141157) BUN (test code = 12 mg/dL 7-23 5864987484) GLUCOSE (test code = 91 mg/dL 70-110 5332512528) CREATININE (test code = 0.52 mg/dL 0.50-1.04 4748583790) TOTAL BILI (test code = 1.2 mg/dL 0.1-1.1 H 1848583422) CALCIUM (test code = 9.1 mg/dL 8.6-10.6 1412358631) T PROTEIN (test code = 7.7 g/dL 6.3-8.2 0776460362) ALBUMIN (test code = 4.3 g/dL 3.5-5.0 8435676178) ALK PHOS (test code = 530 U/L 34-122 H 9528766720) ALTv (test code = 84 U/L 5-35 H 1742-6) AST(SGOT) (test code = 93 U/L 13-40 H 4279382630) eGFR (test code = mL/min/1.73m2 4083826263) KIM (test code = KIM) Association of [...] tests). Lab Interpretation Abnormal (test code = 59500-6) [facility] 16:41:56 Test Item Value Reference Range Interpretation Comments LIPASE (test code = 1496349871) 67 U/L 0-220 Lab Interpretation (test code = Normal 06896-5) [facility] WITH [id number] 16:30:44 Test Item Value Reference Range Interpretation [...] RDW-SD (test code = 49.4 fL 39.0-49.9 26160-9) RDW-CV (test code = 14.4 % 12.0-15.5 788-0) PLT (test code = See_Comment L [Automated 777-3) message] The sy stem which generated this result transmitted reference range : 166 - 358 10*3/ ?L. The reference r luca was not used to interpret this result as normal/abnormal . MPV (test code = 10.1 fL 9.5-12.9 10899-4) IPF % (test code = 2.6 % 1.3-7.7 Platelet count 4558986363) measured by fluorescence method. NRBC/100 WBC (test See_Comment [Automat ed code = 6352155489) message] The system which generated this result transmitted reference range : 0.0 - 10.0 /100 WBCs. The refer ence range was not u sed to interpret th is result as normal/abnormal . NRBC x10^3 (test code <0.01 See_Comment [Auto mated = 9402038203) message] The s ystem which generated this result transmitted reference range : 10*3/?L. The reference range was not used to interpret this result as normal/abnormal . GRAN MAT (NEUT) % 70.3 % (test code = 770-8) IMM GRAN % (test code 0.20 % = 9409047683) LYMPH % (test code = 21.3 % 736-9) MONO % (test code = 6.9 % 5905-5) EOS % (test code = 1.1 % 713-8) BASO % (test code = 0.2 % 706-2) GRAN MAT x10^3(ANC) 3.14 10*3/uL 1.88-7.09 (test code = 9983212177) IMM GRAN x10^3 (test <0.03 0.00-0.06 code = 8137409628) LYMPH x10^3 (test code 0.95 10*3/uL 1.32-3.29 L = 731-0) MONO x10^3 (test code 0.31 10*3/uL 0.33-0.92 L = 742-7) EOS x10^3 (test code = 0.05 10*3/uL 0.03-0.39 711-2) BASO x10^3 (test code <0.03 0.01-0.07 = 704-7) Lab Interpretation Abnormal (test code = 70373-3) [facility] (AUTOMATED)2021-07-28 22:32:51 Test Item Value Reference Range Interpretation Comments POCT GLU (test code = 0932932750) 94 mg/dL 70-110 Lab Interpretation (test code = Normal 69194-8) [facility] GLUCOSE (AUTOMATED)2021-07-28 16:56:05 Test Item Value Reference Range Interpretation Comments POCT GLU (test code = 5366137833) 107 mg/dL 70-110 Lab Interpretation (test code = Normal 92567-1) [facility] GLUCOSE (AUTOMATED)2021-07-28 13:01:41 Test Item Value Reference Range Interpretation Comments POCT GLU (test code = 1046999908) 104 mg/dL 70-110 Lab Interpretation (test code = Normal 45350-0) [facility]. METABOLIC PANEL (55529)2021-07-28 11:55:38 Test Item Value Reference Range Interpretation Comments NA (test code = 140 mmol/L 135-145 4680462183) K (test code = 3.6 mmol/L 3.5-5.0 6492424146) CL (test code = 108 mmol/L 98-108 9213870175) CO2 TOTAL (test code = 27 mmol/L 23-31 0849223229) AGAP (test code = 2-16 0669463615) BUN (test code = 3 mg/dL 7-23 L 0933224373) GLUCOSE (test code = 93 mg/dL 70-110 8420055942) CREATININE (test code = 0.49 mg/dL 0.50-1.04 L 5947357062) TOTAL BILI (test code = 1.0 mg/dL 0.1-1.6 1740188934) CALCIUM (test code = 8.3 mg/dL 8.6-10.6 L 8253902602) T PROTEIN (test code = 6.5 g/dL 6.3-8.2 6561490472) ALBUMIN (test code = 3.6 g/dL 3.5-5.0 2408682634) ALK PHOS (test code = 431 U/L 34-122 H 0649201538) ALTv (test code = 80 U/L 5-35 H 1742-6) AST(SGOT) (test code = 74 U/L 13-40 H 4904453036) eGFR (test code = mL/min/1.73m2 2986250096) KIM (test code = KIM) Association of [...] tests). Lab Interpretation Abnormal (test code = 51701-2) [facility] 11:55:38 Test Item Value Reference Range Interpretation Comments LIPASE (test code = 0954606410) 74 U/L 0-220 Lab Interpretation (test code = Normal 86860-4) [facility] WITH [id number] 10:40:07 Test Item Value Reference Range Interpretation [...] RDW-SD (test code = 49.7 fL 39.0-49.9 78359-5) RDW-CV (test code = 14.3 % 12.0-15.5 788-0) PLT (test code = See_Comment L [Automated 777-3) message] The sy stem which generated this result transmitted reference range : 166 - 358 10*3/ ?L. The reference r luca was not used to interpret this result as normal/abnormal . MPV (test code = 9.3 fL 9.5-12.9 L 79357-3) NRBC/100 WBC (test See_Comment [Automat ed code = 1804976837) message] The system which generated this result transmitted reference range : 0.0 - 10.0 /100 WBCs. The refer ence range was not u sed to interpret th is result as normal/abnormal . NRBC x10^3 (test code <0.01 See_Comment [Auto mated = 4707981195) message] The s ystem which generated this result transmitted reference range : 10*3/?L. The reference range was not used to interpret this result as normal/abnormal . GRAN MAT (NEUT) % 49.4 % (test code = 770-8) IMM GRAN % (test code 0.00 % = 9936738075) LYMPH % (test code = 38.0 % 736-9) MONO % (test code = 10.0 % 5905-5) EOS % (test code = 2.2 % 713-8) BASO % (test code = 0.4 % 706-2) GRAN MAT x10^3(ANC) 1.34 10*3/uL 1.88-7.09 L (test code = 5027090388) IMM GRAN x10^3 (test <0.03 0.00-0.06 code = 0793893843) LYMPH x10^3 (test code 1.03 10*3/uL 1.32-3.29 L = 731-0) MONO x10^3 (test code 0.27 10*3/uL 0.33-0.92 L = 742-7) EOS x10^3 (test code = 0.06 10*3/uL 0.03-0.39 711-2) BASO x10^3 (test code <0.03 0.01-0.07 = 704-7) Lab Interpretation Abnormal (test code = 67767-6) [facility] GLUCOSE (AUTOMATED)2021-07-28 09:10:56 Test Item Value Reference Range Interpretation Comments POCT GLU (test code = 0346429634) 80 mg/dL 70-110 Lab Interpretation (test code = Normal 72057-6) [facility] GLUCOSE (AUTOMATED)2021-07-28 04:43:28 Test Item Value Reference Range Interpretation Comments POCT GLU (test code = 7990152197) 115 mg/dL 70-110 H Lab Interpretation (test code = Abnormal 94161-4) [facility] GLUCOSE (AUTOMATED)2021-07-28 01:22:31 Test Item Value Reference Range Interpretation Comments POCT GLU (test code = 4346258591) 94 mg/dL 70-110 Lab Interpretation (test code = Normal 23878-1) [facility] GLUCOSE (AUTOMATED)2021-07-27 21:50:22 Test Item Value Reference Range Interpretation Comments POCT GLU (test code = 8062507660) 108 mg/dL 70-110 Lab Interpretation (test code = Normal 81914-9) [facility] hospital GLUCOSE (AUTOMATED)2021-07-27 17:02:26 Test Item Value Reference Range Interpretation Comments POCT GLU (test code = 3182728696) 102 mg/dL 70-110 Lab Interpretation (test code = Normal 92508-3) [facility] acute hospital GLUCOSE (AUTOMATED)2021-07-27 12:47:28 Test Item Value Reference Range Interpretation Comments POCT GLU (test code = 6169026063) 106 mg/dL 70-110 Lab Interpretation (test code = Normal 88655-5) [facility] WITH [id number] 12:34:02 Test Item Value Reference Range Interpretation [...] RDW-SD (test code = 47.6 fL 39.0-49.9 21089-0) RDW-CV (test code = 14.0 % 12.0-15.5 788-0) PLT (test code = See_Comment L [Automated 777-3) message] The sy stem which generated this result transmitted reference range : 166 - 358 10*3/ ?L. The reference r luca was not used to interpret this result as normal/abnormal . MPV (test code = 9.5 fL 9.5-12.9 85936-2) NRBC/100 WBC (test See_Comment [Automat ed code = 0581441889) message] The system which generated this result transmitted reference range : 0.0 - 10.0 /100 WBCs. The refer ence range was not u sed to interpret th is result as normal/abnormal . NRBC x10^3 (test code <0.01 See_Comment [Auto mated = 8140013354) message] The s ystem which generated this result transmitted reference range : 10*3/?L. The reference range was not used to interpret this result as normal/abnormal . GRAN MAT (NEUT) % 56.3 % (test code = 770-8) IMM GRAN % (test code 0.80 % = 9400987581) LYMPH % (test code = 33.5 % 736-9) MONO % (test code = 8.6 % 5905-5) EOS % (test code = 0.4 % 713-8) BASO % (test code = 0.4 % 706-2) GRAN MAT x10^3(ANC) 1.50 10*3/uL 1.88-7.09 L (test code = 4582068965) IMM GRAN x10^3 (test <0.03 0.00-0.06 code = 4529528332) LYMPH x10^3 (test code 0.89 10*3/uL 1.32-3.29 L = 731-0) MONO x10^3 (test code 0.23 10*3/uL 0.33-0.92 L = 742-7) EOS x10^3 (test code = <0.03 0.03-0.39 L 711-2) BASO x10^3 (test code <0.03 0.01-0.07 = 704-7) Lab Interpretation Abnormal (test code = 67446-3) [facility] 11:06:32 Test Item Value Reference Range Interpretation Comments MAGNESIUM (test code = 6275234507) 2.0 mg/dL 1.7-2.4 Lab Interpretation (test code = Normal 93626-9) [facility] (NA, K, CL, CO2, GLUCOSE, BUN, CREATININE, CA)2021-07-27 11:06:32 Test Item Value Reference Range Interpretation Comments NA (test code = 141 mmol/L 135-145 3149871710) K (test code = 3.8 mmol/L 3.5-5.0 3336035615) CL (test code = 107 mmol/L 98-108 3510902147) CO2 TOTAL (test code = 25 mmol/L 23-31 4466859052) AGAP (test code = 2-16 9319919908) BUN (test code = 6 mg/dL 7-23 L 6579313997) GLUCOSE (test code = 100 mg/dL 70-110 9522812395) CREATININE (test code = 0.46 mg/dL 0.50-1.04 L 1888019995) CALCIUM (test code = 8.6 mg/dL 8.6-10.6 3126810932) eGFR (test code = mL/min/1.73m2 4597013569) KIM (test code = KIM) Association of [...] tests). Lab Interpretation Abnormal (test code = 96189-1) [facility] acute hospital GLUCOSE (AUTOMATED)2021-07-27 08:58:50 Test Item Value Reference Range Interpretation Comments POCT GLU (test code = 4888274068) 95 mg/dL 70-110 Lab Interpretation (test code = Normal 28095-5) General acute hospital GLUCOSE (AUTOMATED)2021-07-27 06:51:37 Test Item Value Reference Range Interpretation Comments POCT GLU (test code = 7675232944) 146 mg/dL 70-110 H Lab Interpretation (test code = Abnormal 55804-7) General acute hospital GLUCOSE (AUTOMATED)2021-07-27 01:52:10 Test Item Value Reference Range Interpretation Comments POCT GLU (test code = 6975019539) 111 mg/dL 70-110 H Lab Interpretation (test code = Abnormal 68299-7) [facility] 22:12:47 Test Item Value Reference Range Interpretation Comments MAGNESIUM (test code = 3308012051) 1.5 mg/dL 1.7-2.4 L Lab Interpretation (test code = Abnormal 44051-6) [facility] acute hospital GLUCOSE (AUTOMATED)2021-07-26 22:04:12 Test Item Value Reference Range Interpretation Comments POCT GLU (test code = 8988415785) 106 mg/dL 70-110 Lab Interpretation (test code = Normal 51515-2) General acute hospital GLUCOSE (AUTOMATED)2021-07-26 16:59:07 Test Item Value Reference Range Interpretation Comments POCT GLU (test code = 7350373497) 80 mg/dL 70-110 Lab Interpretation (test code = Normal 28777-3) [facility] (NA, K, CL, CO2, GLUCOSE, BUN, CREATININE, CA)2021-07-26 12:05:38 Test Item Value Reference Range Interpretation Comments NA (test code = 137 mmol/L 135-145 6097244220) K (test code = 3.9 mmol/L 3.5-5.0 1219568094) CL (test code = 104 mmol/L 98-108 6291689883) CO2 TOTAL (test code = 25 mmol/L 23-31 7052281020) AGAP (test code = 2-16 1386921457) BUN (test code = 8 mg/dL 7-23 9713365845) GLUCOSE (test code = 100 mg/dL 70-110 9467208348) CREATININE (test code = 0.45 mg/dL 0.50-1.04 L 9595255942) CALCIUM (test code = 8.7 mg/dL 8.6-10.6 7188250750) eGFR (test code = mL/min/1.73m2 0032548588) KIM (test code = KIM) Association of [...] tests). Lab Interpretation Abnormal (test code = 25794-8) [facility] Test Item Value Reference Range Interpretation Comments LIPASE (test code = 9235003248) 58 U/L 0-220 Lab Interpretation (test code = Normal 50329-6) [facility] [id number] 10:22:45 Test Item Value Reference Range Interpretation Comments WBC (test code = See_Comment L [Automated 3790-2) message] The sy stem which [...] RDW-SD (test code = 45.4 fL 39.0-49.9 15933-6) RDW-CV (test code = 13.7 % 12.0-15.5 788-0) PLT (test code = See_Comment L [Automated 777-3) message] The sy stem which generated this result transmitted reference range : 166 - 358 10*3/ ?L. The reference r luca was not used to interpret this result as normal/abnormal . MPV (test code = 9.4 fL 9.5-12.9 L 12945-9) NRBC/100 WBC (test See_Comment [Automat ed code = [id number]) message] The system which generated this result transmitted reference range : 0.0 - 10.0 /100 WBCs. The refer ence range was not u sed to interpret th is result as normal/abnormal . NRBC x10^3 (test code <0.01 See_Comment [Auto mated = [id number]) message] The s ystem which generated this result transmitted reference range : 10*3/?L. The reference range was not used to interpret this result as normal/abnormal . GRAN MAT (NEUT) % 67.8 % (test code = 770-8) IMM GRAN % (test code 0.60 % = 4678024820) LYMPH % (test code = 24.4 % 736-9) MONO % (test code = 6.6 % 5905-5) EOS % (test code = 0.3 % 713-8) BASO % (test code = 0.3 % 706-2) GRAN MAT x10^3(ANC) 2.25 10*3/uL 1.88-7.09 (test code = 2426933839) IMM GRAN x10^3 (test <0.03 0.00-0.06 code = 4849814143) LYMPH x10^3 (test code 0.81 10*3/uL 1.32-3.29 L = 731-0) MONO x10^3 (test code 0.22 10*3/uL 0.33-0.92 L = 742-7) EOS x10^3 (test code = <0.03 0.03-0.39 L 711-2) BASO x10^3 (test code <0.03 0.01-0.07 = 704-7) Lab Interpretation Abnormal (test code = 89766-6) [facility] (ALB,T.PRO,BILI T,BU/BC,ALT,AST,ALK PHOS)2021-07-25 16:47:05 Test Item Value Reference Range Interpretation Comments TOTAL BILI (test code = 8102593486) 1.1 mg/dL 0.1-1.1 BILI UNCON (test code = 4831501435) 0.4 mg/dL 0.1-1.1 BILI CONJ (test code = 3913031360) 0.0 mg/dL 0.0-0.3 T PROTEIN (test code = 5972968407) 4.0 g/dL 6.3-8.2 L ALBUMIN (test code = 3889547969) 1.9 g/dL 3.5-5.0 L ALK PHOS (test code = 9152837608) 229 U/L 34-122 H ALTv (test code = 1742-6) 59 U/L 5-35 H AST(SGOT) (test code = 9340222391) 68 U/L 13-40 H Lab Interpretation (test code = Abnormal 23111-9) [facility]2021-07-25 14:21:54 Test Item Value Reference Range Interpretation Comments POCT GLU (test code = 3235839711) 113 mg/dL 70-110 H Lab Interpretation (test code = Abnormal 40268-6) [facility] (NA, K, CL, CO2, GLUCOSE, BUN, CREATININE, CA)2021-07-25 14:06:58 Test Item Value Reference Range Interpretation Comments NA (test code = 132 mmol/L 135-145 L 6564376426) K (test code = 4.1 mmol/L 3.5-5.0 2221693830) CL (test code = 110 mmol/L 98-108 H 1526275326) CO2 TOTAL (test code = 13 mmol/L 23-31 L 3812390681) AGAP (test code = 2-16 3563517068) BUN (test code = 4 mg/dL 7-23 L 3616491900) GLUCOSE (test code = 48 mg/dL 70-110 LL 6594770201) CREATININE (test code = 0.21 mg/dL 0.50-1.04 L 4956888445) CALCIUM (test code = 6.4 mg/dL 8.6-10.6 L 8613509595) eGFR (test code = mL/min/1.73m2 9731572728) KIM (test code = KIM) Association of [...] tests). Lab Interpretation Abnormal (test code = 97314-6) [facility] WITH [id number] 14:04:42 Test Item Value Reference Range Interpretation [...] RDW-SD (test code = 46.7 fL 39.0-49.9 48335-4) RDW-CV (test code = 13.6 % 12.0-15.5 788-0) PLT (test code = See_Comment L [Automated 777-3) message] The sy stem which generated this result transmitted reference range : 166 - 358 10*3/ ?L. The reference r luca was not used to interpret this result as normal/abnormal . MPV (test code = 10.8 fL 9.5-12.9 39478-9) NRBC/100 WBC (test See_Comment [Automat ed code = 6805998398) message] The system which generated this result transmitted reference range : 0.0 - 10.0 /100 WBCs. The refer ence range was not u sed to interpret th is result as normal/abnormal . NRBC x10^3 (test code <0.01 See_Comment [Auto mated = 8075586060) message] The s ystem which generated this result transmitted reference range : 10*3/?L. The reference range was not used to interpret this result as normal/abnormal . GRAN MAT (NEUT) % 53.2 % (test code = 770-8) IMM GRAN % (test code 0.40 % = 0963900817) LYMPH % (test code = 34.3 % 736-9) MONO % (test code = 10.0 % 5905-5) EOS % (test code = 1.7 % 713-8) BASO % (test code = 0.4 % 706-2) GRAN MAT x10^3(ANC) 1.27 10*3/uL 1.88-7.09 L (test code = 1799341624) IMM GRAN x10^3 (test <0.03 0.00-0.06 code = 8278624807) LYMPH x10^3 (test code 0.82 10*3/uL 1.32-3.29 L = 731-0) MONO x10^3 (test code 0.24 10*3/uL 0.33-0.92 L = 742-7) EOS x10^3 (test code = 0.04 10*3/uL 0.03-0.39 711-2) BASO x10^3 (test code <0.03 0.01-0.07 = 704-7) Lab Interpretation Abnormal (test code = 60287-3) [facility] HospitalMagnesium [id number] 11:34:51 Test Item Value Reference Range Interpretation Comments MAGNESIUM (test code = 9329891193) 1.6 mg/dL 1.7-2.4 L Lab Interpretation (test code = Abnormal 31268-2) [facility] Metabolic Panel (NA, K, CL, CO2, GLUCOSE, BUN, CREATININE, CA)2021-07-24 11:34:31 Test Item Value Reference Range Interpretation Comments NA (test code = 137 mmol/L 135-145 3991781525) K (test code = 4.4 mmol/L 3.5-5.0 9145030821) CL (test code = 106 mmol/L 98-108 6217640080) CO2 TOTAL (test code 23 mmol/L 23-31 = 7632635316) AGAP (test code = 2-16 4482524245) BUN (test code = 14 mg/dL 7-23 6746802421) GLUCOSE (test code = 84 mg/dL 70-110 3109263013) CREATININE (test code 0.54 mg/dL 0.50-1.04 = 6800082867) CALCIUM (test code = 8.7 mg/dL 8.6-10.6 8802834758) eGFR (test code = mL/min/1.73m2 1778022537) KIM (test code = KIM) Association of [...] or urine or abnormalities in imaging tests). [facility] (55681[facility] (ALB,T.PRO,BILI T,BU/BC,ALT,AST,ALK PHOS)2021-07-24 11:34:31 Test Item Value Reference Range Interpretation Comments TOTAL BILI (test code = 0308921295) 1.9 mg/dL 0.1-1.1 H BILI UNCON (test code = 8876876097) 0.8 mg/dL 0.1-1.1 BILI CONJ (test code = 1964001759) 0.0 mg/dL 0.0-0.3 T PROTEIN (test code = 6550204524) 8.0 g/dL 6.3-8.2 ALBUMIN (test code = 4522472735) 4.3 g/dL 3.5-5.0 ALK PHOS (test code = 1453707737) 512 U/L 34-122 H ALTv (test code = 1742-6) 111 U/L 5-35 H AST(SGOT) (test code = 1838143529) 107 U/L 13-40 H Lab Interpretation (test code = Abnormal 71300-8) [facility] with Glfzwviiropu0304-32-90 10:17:09 Test Item Value Reference Range Interpretation [...] RDW-SD (test code = 47.5 fL 39.0-49.9 72418-8) RDW-CV (test code = 13.9 % 12.0-15.5 788-0) PLT (test code = See_Comment L [Automated 777-3) message] The sy stem which generated this result transmitted reference range : 166 - 358 10*3/ ?L. The reference r luca was not used to interpret this result as normal/abnormal . MPV (test code = 11.2 fL 9.5-12.9 00097-5) NRBC/100 WBC (test See_Comment [Automat ed code = 8776334880) message] The system which generated this result transmitted reference range : 0.0 - 10.0 /100 WBCs. The refer ence range was not u sed to interpret th is result as normal/abnormal . NRBC x10^3 (test code <0.01 See_Comment [Auto mated = 5156699396) message] The s ystem which generated this result transmitted reference range : 10*3/?L. The reference range was not used to interpret this result as normal/abnormal . GRAN MAT (NEUT) % 49.4 % (test code = 770-8) IMM GRAN % (test code 0.30 % = 1482628763) LYMPH % (test code = 39.2 % 736-9) MONO % (test code = 8.5 % 5905-5) EOS % (test code = 2.3 % 713-8) BASO % (test code = 0.3 % 706-2) GRAN MAT x10^3(ANC) 1.69 10*3/uL 1.88-7.09 L (test code = 3775975247) IMM GRAN x10^3 (test <0.03 0.00-0.06 code = 6661991361) LYMPH x10^3 (test code 1.34 10*3/uL 1.32-3.29 = 731-0) MONO x10^3 (test code 0.29 10*3/uL 0.33-0.92 L = 742-7) EOS x10^3 (test code = 0.08 10*3/uL 0.03-0.39 711-2) BASO x10^3 (test code <0.03 0.01-0.07 = 704-7) Lab Interpretation Abnormal (test code = 08937-5) [facility] HospitalPhosphorus [id number] 01:21:52 Test Item Value Reference Range Interpretation Comments PHOSPHORUS (test code = 0095652937) 3.9 mg/dL 2.5-5.0 Lab Interpretation (test code = Normal 62083-1) [facility] HospitalTROP[facility]IN [id number] 22:06:24 Test Item Value Reference Interpretation Comments Range TROPONIN I (test 0.006 ng/mL See_Comment [Automated code = 7958755281) message] The system which generated this result [...] biotin. Lab Interpretation Normal (test code = 32647-6) [facility] HospitalMAGNESIUM2022-04-10 21:55:26 Test Item Value Reference Range Interpretation Comments MAGNESIUM (test code = 9950991670) 1.6 mg/dL 1.7-2.4 L Lab Interpretation (test code = Abnormal 52949-0) [facility]COMP. METABOLIC PANEL (53818)2021-07-23 21:55:06 Test Item Value Reference Range Interpretation Comments NA (test code = 139 mmol/L 135-145 4632046685) K (test code = 4.3 mmol/L 3.5-5.0 5319903287) CL (test code = 103 mmol/L 98-108 2974045370) CO2 TOTAL (test code = 24 mmol/L 23-31 3634350006) AGAP (test code = 2-16 7278974857) BUN (test code = 15 mg/dL 7-23 5423047135) GLUCOSE (test code = 102 mg/dL 70-110 9310323641) CREATININE (test code = 0.74 mg/dL 0.50-1.04 9027310864) TOTAL BILI (test code = 2.0 mg/dL 0.1-1.1 H 5373138136) CALCIUM (test code = 9.4 mg/dL 8.6-10.6 7370047025) T PROTEIN (test code = 8.9 g/dL 6.3-8.2 H 5663383163) ALBUMIN (test code = 4.9 g/dL 3.5-5.0 9372639953) ALK PHOS (test code = 653 U/L 34-122 H 0933479103) ALTv (test code = 133 U/L 5-35 H 1742-6) AST(SGOT) (test code = 130 U/L 13-40 H 1375934300) eGFR (test code = mL/min/1.73m2 8533065944) KIM (test code = KIM) Association of [...] tests). Lab Interpretation Abnormal (test code = 64018-7) [facility] HospitalD-AJLEM3966-55-97 21:55:06 Test Item Value Reference Interpretation Comments Range D-DIMER (test code = See_Comment [Autom ated 1271166743) message] The system which generated this result [...] diagnosis. Lab Interpretation Normal (test code = 50943-4) [facility] 21:54:46 Test Item Value Reference Range Interpretation Comments LIPASE (test code = 1341987711) 66 U/L 0-220 Lab Interpretation (test code = Normal 59112-3) [facility] WITH [id number] 21:44:24 Test Item Value Reference Range Interpretation [...] RDW-SD (test code = 47.5 fL 39.0-49.9 92121-1) RDW-CV (test code = 13.9 % 12.0-15.5 788-0) PLT (test code = See_Comment L [Automated 777-3) message] The sy stem which generated this result transmitted reference range : 166 - 358 10*3/ ?L. The reference r luca was not used to interpret this result as normal/abnormal . MPV (test code = 10.1 fL 9.5-12.9 94088-9) NRBC/100 WBC (test See_Comment [Automat ed code = 7239513892) message] The system which generated this result transmitted reference range : 0.0 - 10.0 /100 WBCs. The refer ence range was not u sed to interpret th is result as normal/abnormal . NRBC x10^3 (test code <0.01 See_Comment [Auto mated = 8177714768) message] The s ystem which generated this result transmitted reference range : 10*3/?L. The reference range was not used to interpret this result as normal/abnormal . GRAN MAT (NEUT) % 67.1 % (test code = 770-8) IMM GRAN % (test code 0.20 % = 4883456299) LYMPH % (test code = 24.9 % 736-9) MONO % (test code = 5.9 % 5905-5) EOS % (test code = 1.7 % 713-8) BASO % (test code = 0.2 % 706-2) GRAN MAT x10^3(ANC) 2.74 10*3/uL 1.88-7.09 (test code = 0157349300) IMM GRAN x10^3 (test <0.03 0.00-0.06 code = 8402137478) LYMPH x10^3 (test code 1.02 10*3/uL 1.32-3.29 L = 731-0) MONO x10^3 (test code 0.24 10*3/uL 0.33-0.92 L = 742-7) EOS x10^3 (test code = 0.07 10*3/uL 0.03-0.39 711-2) BASO x10^3 (test code <0.03 0.01-0.07 = 704-7) Lab Interpretation Abnormal (test code = 61502-1) [facility]TROP[facility]IN [id number] 21:47:03 Test Item Value Reference Interpretation Comments Range TROPONIN I (test 0.006 ng/mL See_Comment [Automated code = 7257951314) message] The system which generated this result [...] biotin. Lab Interpretation Normal (test code = 42714-5) [facility] HospitalN-TERMINAL [id number] 21:44:02 Test Item Value Reference Range Interpretation Comments NT-proBNP (test code 75 pg/mL See_Comment [Autom ated = 2769099566) message] The system which generated this result transmitted reference range : <=125. The reference range was not used to interpret this result as normal/abnormal . KIM (test code = KIM) Biotin has been reported to cause a negative bias, interpret results relative to patient's use of biotin. Lab Interpretation Normal (test code = 10018-6) [facility]COMP[facility]OLIC PANEL (21102)2021-06-03 21:37:20 Test Item Value Reference Range Interpretation Comments NA (test code = 137 mmol/L 135-145 6776511450) K (test code = 4.2 mmol/L 3.5-5.0 6380256132) CL (test code = 108 mmol/L 98-108 7594610359) CO2 TOTAL (test code = 26 mmol/L 23-31 5389592149) AGAP (test code = 2-16 6324774748) BUN (test code = 13 mg/dL 7-23 4358521988) GLUCOSE (test code = 83 mg/dL 70-110 7245994302) CREATININE (test code = 0.51 mg/dL 0.50-1.04 1188913341) TOTAL BILI (test code = 1.4 mg/dL 0.1-1.1 H 7770812164) CALCIUM (test code = 8.6 mg/dL 8.6-10.6 4040758660) T PROTEIN (test code = 7.8 g/dL 6.3-8.2 5123959805) ALBUMIN (test code = 4.3 g/dL 3.5-5.0 8566709541) ALK PHOS (test code = 731 U/L 34-122 H 8890607363) ALTv (test code = 162 U/L 5-35 H 1742-6) AST(SGOT) (test code = 251 U/L 13-40 H 6052039340) eGFR (test code = mL/min/1.73m2 7442513333) KIM (test code = KIM) Association of [...] tests). Lab Interpretation Abnormal (test code = 60216-9) [facility] 21:37:00 Test Item Value Reference Range Interpretation Comments LIPASE (test code = 2448935017) 62 U/L 0-220 Lab Interpretation (test code = Normal 19101-0) [facility] HospitalACTIVATED PARTIAL THRMPLAS [id number] 21:33:43 Test Item Value Reference Range Interpretation Comments APTT Patient (test See_Comment [Automat ed code = 3173-2) message] The system which generated this result transmitted reference range : 23 - 38 Seconds . The reference range was not used to interpr et this result as normal/abnormal . KIM (test code = KIM) The [facility] patient population mean normal value for aPTT is 30 seconds. Lab Interpretation Normal (test code = 04144-6) [facility] HospitalPROTHROMBIN TIME / [id number] 21:31:42 Test Item Value Reference Range Interpretation [...] tions. Lab Interpretation (test Normal code = 19659-7) [facility] WITH [id number] 21:18:43 Test Item Value Reference Range Interpretation Comments WBC (test code = See_Comment L [Automated 7890-2) message] The sy stem which generated this result transmitted reference range : 4.30 - 11.10 10*3/?L. The reference range was not used to interpret this result as normal/abnormal . RBC (test code = See_Comment L [Automated 769-8) message] The sy stem which [...] RDW-SD (test code = 46.3 fL 39.0-49.9 68469-4) RDW-CV (test code = 13.8 % 12.0-15.5 788-0) PLT (test code = See_Comment L [Automated 777-3) message] The sy stem which generated this result transmitted reference range : 166 - 358 10*3/ ?L. The reference r luca was not used to interpret this result as normal/abnormal . MPV (test code = 9.5 fL 9.5-12.9 27266-9) IPF % (test code = 2.0 % 1.3-7.7 Platelet count 5148788852) measured by fluorescence method. NRBC/100 WBC (test See_Comment [Automat ed code = 0614809293) message] The system which generated this result transmitted reference range : 0.0 - 10.0 /100 WBCs. The refer ence range was not u sed to interpret th is result as normal/abnormal . NRBC x10^3 (test code <0.01 See_Comment [Auto mated = 2685712378) message] The s ystem which generated this result transmitted reference range : 10*3/?L. The reference range was not used to interpret this result as normal/abnormal . GRAN MAT (NEUT) % 68.8 % (test code = 770-8) IMM GRAN % (test code 0.20 % = 3135036406) LYMPH % (test code = 20.0 % 736-9) MONO % (test code = 10.3 % 5905-5) EOS % (test code = 0.5 % 713-8) BASO % (test code = 0.2 % 706-2) GRAN MAT x10^3(ANC) 2.79 10*3/uL 1.88-7.09 (test code = 6030196523) IMM GRAN x10^3 (test <0.03 0.00-0.06 code = 0871219345) LYMPH x10^3 (test code 0.81 10*3/uL 1.32-3.29 L = 731-0) MONO x10^3 (test code 0.42 10*3/uL 0.33-0.92 = 742-7) EOS x10^3 (test code = <0.03 0.03-0.39 L 711-2) BASO x10^3 (test code <0.03 0.01-0.07 = 704-7) Lab Interpretation Abnormal (test code = 92253-9) [facility] HospitalLactic Acid Whole [id number] 20:33:44 Test Item Value Reference Range Interpretation Comments LACTIC ACID (test code = 1.37 mmol/L 0.50-2.20 9246912282) Lab Interpretation (test code = Normal 82085-2) [facility] HospitalTROPONIN [id number] 06:39:31 Test Item Value Reference Interpretation Comments Range TROPONIN I (test 0.027 ng/mL See_Comment [Automated code = 5149735182) message] The system which generated this result [...] biotin. Lab Interpretation Normal (test code = 77687-2) [facility]N-[facility]MINAL [id number] 06:36:10 Test Item Value Reference Range Interpretation Comments NT-proBNP (test code 68 pg/mL See_Comment [Autom ated = 1524668323) message] The system which generated this result transmitted reference range : <=125. The reference range was not used to interpret this result as normal/abnormal . KIM (test code = KIM) Biotin has been reported to cause a negative bias, interpret results relative to patient's use of biotin. Lab Interpretation Normal (test code = 76988-3) [facility] WITH [id number] 06:30:54 Test Item Value Reference Range Interpretation [...] RDW-SD (test code = 47.1 fL 39.0-49.9 52073-1) RDW-CV (test code = 13.9 % 12.0-15.5 788-0) PLT (test code = See_Comment L [Automated 777-3) message] The sy stem which generated this result transmitted reference range : 166 - 358 10*3/ ?L. The reference r luca was not used to interpret this result as normal/abnormal . MPV (test code = 10.2 fL 9.5-12.9 58340-4) NRBC/100 WBC (test See_Comment [Automat ed code = 7850341045) message] The system which generated this result transmitted reference range : 0.0 - 10.0 /100 WBCs. The refer ence range was not u sed to interpret th is result as normal/abnormal . NRBC x10^3 (test code <0.01 See_Comment [Auto mated = 8633449601) message] The s ystem which generated this result transmitted reference range : 10*3/?L. The reference range was not used to interpret this result as normal/abnormal . GRAN MAT (NEUT) % 62.6 % (test code = 770-8) IMM GRAN % (test code 0.00 % = 5368582669) LYMPH % (test code = 25.3 % 736-9) MONO % (test code = 9.5 % 5905-5) EOS % (test code = 2.2 % 713-8) BASO % (test code = 0.4 % 706-2) GRAN MAT x10^3(ANC) 1.71 10*3/uL 1.88-7.09 L (test code = 2806123054) IMM GRAN x10^3 (test <0.03 0.00-0.06 code = 8477693570) LYMPH x10^3 (test code 0.69 10*3/uL 1.32-3.29 L = 731-0) MONO x10^3 (test code 0.26 10*3/uL 0.33-0.92 L = 742-7) EOS x10^3 (test code = 0.06 10*3/uL 0.03-0.39 711-2) BASO x10^3 (test code <0.03 0.01-0.07 = 704-7) Lab Interpretation Abnormal (test code = 00944-8) [facility]OL[facility] (14979)2021-05-22 06:27:49 Test Item Value Reference Range Interpretation Comments NA (test code = 138 mmol/L 135-145 7268479209) K (test code = 4.9 mmol/L 3.5-5.0 6093662774) CL (test code = 105 mmol/L 98-108 7372287561) CO2 TOTAL (test code = 24 mmol/L 23-31 8189500019) AGAP (test code = 2-16 8032921521) BUN (test code = 6 mg/dL 7-23 L 0995549799) GLUCOSE (test code = 128 mg/dL 70-110 H 7115097379) CREATININE (test code = 0.54 mg/dL 0.50-1.04 7944093309) TOTAL BILI (test code = 1.3 mg/dL 0.1-1.1 H 6843644173) CALCIUM (test code = 8.4 mg/dL 8.6-10.6 L 9360570857) T PROTEIN (test code = 8.3 g/dL 6.3-8.2 H 4098454615) ALBUMIN (test code = 4.4 g/dL 3.5-5.0 0820319452) ALK PHOS (test code = 650 U/L 34-122 H 5330566269) ALTv (test code = 59 U/L 5-35 H 1742-6) AST(SGOT) (test code = 105 U/L 13-40 H 0655623748) eGFR (test code = mL/min/1.73m2 2247903786) KIM (test code = KIM) Association of [...] tests). Lab Interpretation Abnormal (test code = 25533-8) [facility] MOLECULAR [id number] 15:37:16 Test Item Value Reference Range Interpretation Comments POCT Molecular FluA (test code = Negative Negative 15830-0) POCT Molecular FluB (test code = Negative Negative 67239-8) Lab Interpretation (test code = Normal 96360-2) [facility] acute hospital MOLECULAR [id number] 15:30:18 Test Item Value Reference Range Interpretation Comments POCT Molecular Strep (test code = Negative Negative 36454-4) Lab Interpretation (test code = Normal 59261-7) [facility]TR[facility] [id number] 21:11:35 Test Item Value Reference Interpretation Comments Range TROPONIN I (test 0.002 ng/mL See_Comment [Automated code = 5951463254) message] The system which generated this result [...] biotin. Lab Interpretation Normal (test code = 09338-5) [facility]OL[facility] (43507)2021-04-15 20:54:19 Test Item Value Reference Range Interpretation Comments NA (test code = 137 mmol/L 135-145 6152207995) K (test code = 3.8 mmol/L 3.5-5.0 0830991939) CL (test code = 103 mmol/L 98-108 8394367533) CO2 TOTAL (test code = 26 mmol/L 23-31 9145716153) AGAP (test code = 2-16 4532882124) BUN (test code = 12 mg/dL 7-23 3793239726) GLUCOSE (test code = 111 mg/dL 70-110 H 7828607935) CREATININE (test code = 0.61 mg/dL 0.50-1.04 8994728756) TOTAL BILI (test code = 1.2 mg/dL 0.1-1.1 H 2153927168) CALCIUM (test code = 8.9 mg/dL 8.6-10.6 8976920549) T PROTEIN (test code = 8.1 g/dL 6.3-8.2 5642049090) ALBUMIN (test code = 4.3 g/dL 3.5-5.0 3396544516) ALK PHOS (test code = 693 U/L 34-122 H 7948182184) ALTv (test code = 93 U/L 5-35 H 1742-6) AST(SGOT) (test code = 108 U/L 13-40 H 0327180175) eGFR (test code = mL/min/1.73m2 3330429496) KIM (test code = KIM) Association of [...] tests). Lab Interpretation Abnormal (test code = 07223-9) [facility] 20:53:54 Test Item Value Reference Range Interpretation Comments LIPASE (test code = 3666689559) 59 U/L 0-220 Lab Interpretation (test code = Normal 21611-9) [facility] WITH [id number] 20:33:32 Test Item Value Reference Range Interpretation [...] RDW-SD (test code = 45.8 fL 39.0-49.9 38928-1) RDW-CV (test code = 13.7 % 12.0-15.5 788-0) PLT (test code = See_Comment [Automated 777-3) message] The sy stem which generated this result transmitted reference range : 166 - 358 10*3/ ?L. The reference r luca was not used to interpret this result as normal/abnormal . MPV (test code = 9.5 fL 9.5-12.9 19752-1) NRBC/100 WBC (test See_Comment [Automat ed code = 8379894162) message] The system which generated this result transmitted reference range : 0.0 - 10.0 /100 WBCs. The refer ence range was not u sed to interpret th is result as normal/abnormal . NRBC x10^3 (test code <0.01 See_Comment [Auto mated = 9310630415) message] The s ystem which generated this result transmitted reference range : 10*3/?L. The reference range was not used to interpret this result as normal/abnormal . GRAN MAT (NEUT) % 70.5 % (test code = 770-8) IMM GRAN % (test code 0.70 % = 2286881984) LYMPH % (test code = 20.2 % 736-9) MONO % (test code = 6.7 % 5905-5) EOS % (test code = 1.4 % 713-8) BASO % (test code = 0.5 % 706-2) GRAN MAT x10^3(ANC) 3.07 10*3/uL 1.88-7.09 (test code = [id number]) IMM GRAN x10^3 (test 0.03 10*3/uL 0.00-0.06 code = [id number]) LYMPH x10^3 (test code 0.88 10*3/uL 1.32-3.29 L = 731-0) MONO x10^3 (test code 0.29 10*3/uL 0.33-0.92 L = 742-7) EOS x10^3 (test code = 0.06 10*3/uL 0.03-0.39 711-2) BASO x10^3 (test code <0.03 0.01-0.07 = 704-7) Lab Interpretation Abnormal (test code = 29238-0) [id number] Test Item Value Reference Interpretation Comments Range TROPONIN I (test 0.002 ng/mL See_Comment [Automated code = [id number]) message] The system which generated this result [...] biotin. Lab Interpretation Normal (test code = 08245-6) [id number] 01:46:10 Test Item Value Reference Range Interpretation Comments NT-proBNP (test code 56 pg/mL See_Comment [Autom ated = [id number]) message] The system which generated this result transmitted reference range : <=125. The reference range was not used to interpret this result as normal/abnormal . KIM (test code = KIM) Biotin has been reported to cause a negative bias, interpret results relative to patient's use of biotin. Lab Interpretation Normal (test code = 55692-9) [facility]. METABOLIC PANEL (03668)2021-03-26 01:37:29 Test Item Value Reference Range Interpretation Comments NA (test code = 134 mmol/L 135-145 L [id number]) K (test code = 4.6 mmol/L 3.5-5.0 3257603470) CL (test code = 103 mmol/L 98-108 9061927744) CO2 TOTAL (test code = 21 mmol/L 23-31 L 3606575611) AGAP (test code = 2-16 4224338207) BUN (test code = 21 mg/dL 7-23 3181359273) GLUCOSE (test code = 98 mg/dL 70-110 1192275486) CREATININE (test code = 0.89 mg/dL 0.50-1.04 0509924356) TOTAL BILI (test code = 1.0 mg/dL 0.1-1.2 5879830713) CALCIUM (test code = 9.6 mg/dL 8.6-10.6 5161232336) T PROTEIN (test code = 8.0 g/dL 6.3-8.2 0387708875) ALBUMIN (test code = 4.5 g/dL 3.5-5.0 6688938049) ALK PHOS (test code = 818 U/L 34-122 H 2257908995) ALTv (test code = 201 U/L 5-35 H 1742-6) AST(SGOT) (test code = 174 U/L 13-40 H 4248701890) eGFR (test code = mL/min/1.73m2 3009269868) KIM (test code = KIM) Association of [...] tests). Lab Interpretation Abnormal (test code = 75971-8) [facility] Test Item Value Reference Range Interpretation Comments LIPASE (test code = 1130045618) 176 U/L 0-220 Lab Interpretation (test code = Normal 54279-8) [facility] WITH [id number] 01:34:08 Test Item Value Reference Range Interpretation [...] RDW-SD (test code = 43.3 fL 39.0-49.9 30809-5) RDW-CV (test code = 13.0 % 12.0-15.5 788-0) PLT (test code = See_Comment [Automated 777-3) message] The sy stem which generated this result transmitted reference range : 166 - 358 10*3/ ?L. The reference r luca was not used to interpret this result as normal/abnormal . MPV (test code = 10.0 fL 9.5-12.9 23439-0) NRBC/100 WBC (test See_Comment [Automat ed code = 3159461507) message] The system which generated this result transmitted reference range : 0.0 - 10.0 /100 WBCs. The refer ence range was not u sed to interpret th is result as normal/abnormal . NRBC x10^3 (test code <0.01 See_Comment [Auto mated = 7612174140) message] The s ystem which generated this result transmitted reference range : 10*3/?L. The reference range was not used to interpret this result as normal/abnormal . GRAN MAT (NEUT) % 71.1 % (test code = 770-8) IMM GRAN % (test code 0.50 % = 8228268336) LYMPH % (test code = 18.8 % 736-9) MONO % (test code = 7.0 % 5905-5) EOS % (test code = 2.3 % 713-8) BASO % (test code = 0.3 % 706-2) GRAN MAT x10^3(ANC) 4.38 10*3/uL 1.88-7.09 (test code = 3679886507) IMM GRAN x10^3 (test 0.03 10*3/uL 0.00-0.06 code = 2099444684) LYMPH x10^3 (test code 1.16 10*3/uL 1.32-3.29 L = 731-0) MONO x10^3 (test code 0.43 10*3/uL 0.33-0.92 = 742-7) EOS x10^3 (test code = 0.14 10*3/uL 0.03-0.39 711-2) BASO x10^3 (test code <0.03 0.01-0.07 = 704-7) Lab Interpretation Abnormal (test code = 59565-6) [facility]. METABOLIC PANEL (45186)2021-03-21 00:26:35 Test Item Value Reference Range Interpretation Comments NA (test code = 135 mmol/L 135-145 0036081220) K (test code = 4.6 mmol/L 3.5-5.0 3654698384) CL (test code = 104 mmol/L 98-108 6856805599) CO2 TOTAL (test code = 24 mmol/L 23-31 3882207652) AGAP (test code = 2-16 0926185716) BUN (test code = 17 mg/dL 7-23 0125053832) GLUCOSE (test code = 88 mg/dL 70-110 0630062932) CREATININE (test code = 0.70 mg/dL 0.50-1.04 3082676164) TOTAL BILI (test code = 1.0 mg/dL 0.1-1.5 0817906021) CALCIUM (test code = 8.8 mg/dL 8.6-10.6 0591711040) T PROTEIN (test code = 7.2 g/dL 6.3-8.2 4001616630) ALBUMIN (test code = 3.9 g/dL 3.5-5.0 0316592406) ALK PHOS (test code = 844 U/L 34-122 H 8378433374) ALTv (test code = 192 U/L 5-35 H 1742-6) AST(SGOT) (test code = 189 U/L 13-40 H 4979718688) eGFR (test code = mL/min/1.73m2 2979553673) KIM (test code = KIM) Association of [...] tests). Lab Interpretation Abnormal (test code = 40527-6) [id number] 23:26:58 Test Item Value Reference Interpretation Comments Range TROPONIN I (test 0.026 ng/mL See_Comment [Automated code = 5344147735) message] The system which generated this result [...] biotin. Lab Interpretation Normal (test code = 59059-4) [facility]:15[facility]37 Test Item Value Reference Range Interpretation Comments LIPASE (test code = 3923719441) 214 U/L 0-220 Lab Interpretation (test code = Normal 39695-2) [facility] WITH [id number] 22:59:33 Test Item Value Reference Range Interpretation Comments WBC (test code = See_Comment [Automated 9561-2) message] The sy stem which generated this result transmitted reference range : 4.30 - 11.10 10*3/?L. The reference range was not used to interpret this result as normal/abnormal . RBC (test code = See_Comment L [Automated 772-8) message] The sy stem which generated this [...] RDW-SD (test code = 43.4 fL 39.0-49.9 25315-7) RDW-CV (test code = 13.0 % 12.0-15.5 788-0) PLT (test code = See_Comment [Automated 777-3) message] The sy stem which generated this result transmitted reference range : 166 - 358 10*3/ ?L. The reference r luca was not used to interpret this result as normal/abnormal . MPV (test code = 10.2 fL 9.5-12.9 25433-0) NRBC/100 WBC (test See_Comment [Automat ed code = 2696100278) message] The system which generated this result transmitted reference range : 0.0 - 10.0 /100 WBCs. The refer ence range was not u sed to interpret th is result as normal/abnormal . NRBC x10^3 (test code <0.01 See_Comment [Auto mated = 9307843652) message] The s ystem which generated this result transmitted reference range : 10*3/?L. The reference range was not used to interpret this result as normal/abnormal . GRAN MAT (NEUT) % 65.8 % (test code = 770-8) IMM GRAN % (test code 0.20 % = 2291069702) LYMPH % (test code = 22.8 % 736-9) MONO % (test code = 7.7 % 5905-5) EOS % (test code = 2.9 % 713-8) BASO % (test code = 0.6 % 706-2) GRAN MAT x10^3(ANC) 3.43 10*3/uL 1.88-7.09 (test code = 4469711948) IMM GRAN x10^3 (test <0.03 0.00-0.06 code = 6269928769) LYMPH x10^3 (test code 1.19 10*3/uL 1.32-3.29 L = 731-0) MONO x10^3 (test code 0.40 10*3/uL 0.33-0.92 = 742-7) EOS x10^3 (test code = 0.15 10*3/uL 0.03-0.39 711-2) BASO x10^3 (test code 0.03 10*3/uL 0.01-0.07 = 704-7) Lab Interpretation Abnormal (test code = 24102-3) [facility]. METABOLIC PANEL (10618)2021-02-12 20:12:57 Test Item Value Reference Range Interpretation Comments NA (test code = 137 mmol/L 135-145 3926790037) K (test code = 4.7 mmol/L 3.5-5.0 3076433309) CL (test code = 106 mmol/L 98-108 1219743756) CO2 TOTAL (test code = 23 mmol/L 23-31 7392485336) AGAP (test code = 2-16 7011232216) BUN (test code = 16 mg/dL 7-23 4472207708) GLUCOSE (test code = 116 mg/dL 70-110 H 2166051384) CREATININE (test code = 0.65 mg/dL 0.50-1.04 5161185291) TOTAL BILI (test code = 1.6 mg/dL 0.1-1.1 H 1220677940) CALCIUM (test code = 9.6 mg/dL 8.6-10.6 6236737768) T PROTEIN (test code = 8.3 g/dL 6.3-8.2 H 7542375578) ALBUMIN (test code = 4.5 g/dL 3.5-5.0 5196137068) ALK PHOS (test code = 650 U/L 34-122 H 4007636816) ALTv (test code = 146 U/L 5-35 H 1742-6) AST(SGOT) (test code = 174 U/L 13-40 H 0129456751) eGFR (test code = mL/min/1.73m2 0575325947) KIM (test code = KIM) Association of [...] tests). Lab Interpretation Abnormal (test code = 17036-9) [facility]12:12 Test Item Value Reference Range Interpretation Comments LIPASE (test code = 9861169201) 86 U/L 0-220 Lab Interpretation (test code = Normal 33930-2) [facility] WITH [id number] 20:02:15 Test Item Value Reference Range Interpretation Comments WBC (test code = See_Comment [Automated 8690-2) message] The sy stem which generated this result transmitted reference range : 4.30 - 11.10 10*3/?L. The reference range was not used to interpret this result as normal/abnormal . RBC (test code = See_Comment L [Automated 307-8) message] The sy stem which generated this [...] RDW-SD (test code = 46.4 fL 39.0-49.9 68344-0) RDW-CV (test code = 13.8 % 12.0-15.5 788-0) PLT (test code = See_Comment [Automated 777-3) message] The sy stem which generated this result transmitted reference range : 166 - 358 10*3/ ?L. The reference r luca was not used to interpret this result as normal/abnormal . MPV (test code = 9.8 fL 9.5-12.9 65230-5) NRBC/100 WBC (test See_Comment [Automat ed code = 4818167356) message] The system which generated this result transmitted reference range : 0.0 - 10.0 /100 WBCs. The refer ence range was not u sed to interpret th is result as normal/abnormal . NRBC x10^3 (test code <0.01 See_Comment [Auto mated = 3440376534) message] The s ystem which generated this result transmitted reference range : 10*3/?L. The reference range was not used to interpret this result as normal/abnormal . GRAN MAT (NEUT) % 69.4 % (test code = 770-8) IMM GRAN % (test code 0.40 % = 6850546244) LYMPH % (test code = 20.4 % 736-9) MONO % (test code = 7.2 % 5905-5) EOS % (test code = 2.0 % 713-8) BASO % (test code = 0.6 % 706-2) GRAN MAT x10^3(ANC) 3.77 10*3/uL 1.88-7.09 (test code = 5675281062) IMM GRAN x10^3 (test <0.03 0.00-0.06 code = 0633977295) LYMPH x10^3 (test code 1.11 10*3/uL 1.32-3.29 L = 731-0) MONO x10^3 (test code 0.39 10*3/uL 0.33-0.92 = 742-7) EOS x10^3 (test code = 0.11 10*3/uL 0.03-0.39 711-2) BASO x10^3 (test code 0.03 10*3/uL 0.01-0.07 = 704-7) Lab Interpretation Abnormal (test code = 40806-4) [facility]. METABOLIC PANEL (69614)2021-01-18 04:36:17 Test Item Value Reference Range Interpretation Comments NA (test code = 137 mmol/L 135-145 1330112955) K (test code = 4.2 mmol/L 3.5-5.0 1095177985) CL (test code = 103 mmol/L 98-108 1461066123) CO2 TOTAL (test code = 27 mmol/L 23-31 5382076151) AGAP (test code = 2-16 3820251207) BUN (test code = 13 mg/dL 7-23 2246487652) GLUCOSE (test code = 100 mg/dL 70-110 0906390924) CREATININE (test code = 0.73 mg/dL 0.50-1.04 3871444399) TOTAL BILI (test code = 1.4 mg/dL 0.1-1.1 H 4023849044) CALCIUM (test code = 9.1 mg/dL 8.6-10.6 6892920641) T PROTEIN (test code = 7.2 g/dL 6.3-8.2 4410027791) ALBUMIN (test code = 4.0 g/dL 3.5-5.0 4199225961) ALK PHOS (test code = 585 U/L 34-122 H 7152902722) ALTv (test code = 78 U/L 5-35 H 1742-6) AST(SGOT) (test code = 73 U/L 13-40 H 3956865119) eGFR (test code = mL/min/1.73m2 5910256149) KIM (test code = KIM) Association of [...] tests). Lab Interpretation Abnormal (test code = 95086-2) [facility]02:39 Test Item Value Reference Range Interpretation Comments LIPASE (test code = 3535583726) 114 U/L 0-220 Lab Interpretation (test code = Normal 20904-7) [facility] [id number] 03:49:11 Test Item Value Reference Range Interpretation Comments WBC (test code = See_Comment [Automated 5780-2) message] The sy stem which generated this [...] (test code = 50.6 fL 39.0-49.9 H 99213-3) RDW-CV (test code = 14.8 % 12.0-15.5 788-0) PLT (test code = See_Comment [Automated 777-3) message] The sy stem which generated this result transmitted reference range : 166 - 358 10*3/ ?L. The reference r luca was not used to interpret this result as normal/abnormal . MPV (test code = 10.7 fL 9.5-12.9 80529-2) NRBC/100 WBC (test See_Comment [Automat ed code = 1023217743) message] The system which generated this result transmitted reference range : 0.0 - 10.0 /100 WBCs. The refer ence range was not u sed to interpret th is result as normal/abnormal . NRBC x10^3 (test code <0.01 See_Comment [Auto mated = 7412192058) message] The s ystem which generated this result transmitted reference range : 10*3/?L. The reference range was not used to interpret this result as normal/abnormal . GRAN MAT (NEUT) % 66.1 % (test code = 770-8) IMM GRAN % (test code 0.20 % = 3040764764) LYMPH % (test code = 23.5 % 736-9) MONO % (test code = 8.1 % 5905-5) EOS % (test code = 1.7 % 713-8) BASO % (test code = 0.4 % 706-2) GRAN MAT x10^3(ANC) 3.49 10*3/uL 1.88-7.09 (test code = 0347356971) IMM GRAN x10^3 (test <0.03 0.00-0.06 code = 9186794997) LYMPH x10^3 (test code 1.24 10*3/uL 1.32-3.29 L = 731-0) MONO x10^3 (test code 0.43 10*3/uL 0.33-0.92 = 742-7) EOS x10^3 (test code = 0.09 10*3/uL 0.03-0.39 711-2) BASO x10^3 (test code <0.03 0.01-0.07 = 704-7) Lab Interpretation Abnormal (test code = 01910-5) [facility] (ALB,T.PRO,BILI T,BU/BC,ALT,AST,ALK PHOS)2020-12-30 18:48:24 Test Item Value Reference Range Interpretation Comments TOTAL BILI (test code = 9853724179) 2.4 mg/dL 0.1-1.1 H BILI UNCON (test code = 0572495410) 0.5 mg/dL 0.1-1.1 BILI CONJ (test code = 0406774288) 0.0 mg/dL 0.0-0.3 T PROTEIN (test code = 7169921449) 9.8 g/dL 6.3-8.2 H ALBUMIN (test code = 0940810179) 4.9 g/dL 3.5-5.0 ALK PHOS (test code = 4426371856) 1181 U/L 34-122 H ALTv (test code = 1742-6) 271 U/L 5-35 H AST(SGOT) (test code = 1101767199) 192 U/L 13-40 H Lab Interpretation (test code = Abnormal 26684-6) [facility]747[facility] (ALB,T.PRO,BILI T,BU/BC,ALT,AST,ALK PHOS)2020-12-30 18:48:24 Test Item Value Reference Range Interpretation Comments TOTAL BILI (test code = 2798613893) 2.4 mg/dL 0.1-1.1 H BILI UNCON (test code = 3143537547) 0.5 mg/dL 0.1-1.1 BILI CONJ (test code = 7671155158) 0.0 mg/dL 0.0-0.3 T PROTEIN (test code = 2347963323) 9.8 g/dL 6.3-8.2 H ALBUMIN (test code = 9405382733) 4.9 g/dL 3.5-5.0 ALK PHOS (test code = 5642677861) 1181 U/L 34-122 H ALTv (test code = 1742-6) 271 U/L 5-35 H AST(SGOT) (test code = 2130743021) 192 U/L 13-40 H Lab Interpretation (test code = Abnormal 22464-9) [facility] METABOLIC PANEL (NA, K, CL, CO2, GLUCOSE, BUN, CREATININE, CA)2020-12-30 18:48:02 Test Item Value Reference Range Interpretation Comments NA (test code = 138 mmol/L 135-145 6422259278) K (test code = 4.7 mmol/L 3.5-5.0 2283680141) CL (test code = 106 mmol/L 98-108 3524955875) CO2 TOTAL (test code = 20 mmol/L 23-31 L 9876982378) AGAP (test code = 2-16 1759473971) BUN (test code = 19 mg/dL 7-23 2647326967) GLUCOSE (test code = 134 mg/dL 70-110 H 9294963698) CREATININE (test code = 0.62 mg/dL 0.50-1.04 7869729083) CALCIUM (test code = 10.1 mg/dL 8.6-10.6 8292515513) eGFR (test code = mL/min/1.73m2 0527161135) KIM (test code = KIM) Association of [...] tests). Lab Interpretation Abnormal (test code = 49165-9) [facility] 18:48:02 Test Item Value Reference Range Interpretation Comments LIPASE (test code = 8551613163) 292 U/L 0-220 H Lab Interpretation (test code = Abnormal 47388-7) [facility] (NA, K, CL, CO2, GLUCOSE, BUN, CREATININE, CA)2020-12-30 18:48:02 Test Item Value Reference Range Interpretation Comments NA (test code = 138 mmol/L 135-145 8614380510) K (test code = 4.7 mmol/L 3.5-5.0 1825994038) CL (test code = 106 mmol/L 98-108 4101798392) CO2 TOTAL (test code = 20 mmol/L 23-31 L 6666709733) AGAP (test code = 2-16 5363817114) BUN (test code = 19 mg/dL 7-23 3790136420) GLUCOSE (test code = 134 mg/dL 70-110 H 3174922128) CREATININE (test code = 0.62 mg/dL 0.50-1.04 7654173501) CALCIUM (test code = 10.1 mg/dL 8.6-10.6 1701444335) eGFR (test code = mL/min/1.73m2 6024029571) KIM (test code = KIM) Association of [...] tests). Lab Interpretation Abnormal (test code = 62489-6) [facility] 18:48:02 Test Item Value Reference Range Interpretation Comments LIPASE (test code = 1683928717) 292 U/L 0-220 H Lab Interpretation (test code = Abnormal 46388-9) [facility] WITH [id number] 18:39:23 Test Item Value Reference Range Interpretation Comments WBC (test code = See_Comment [Automated 9982-2) message] The sy stem which generated this result transmitted reference range : 4.30 - 11.10 10*3/?L. The reference range was not used to interpret this result as normal/abnormal . RBC (test code = See_Comment [Automated 223-9) message] The sy stem which generated this [...] RDW-SD (test code = 48.4 fL 39.0-49.9 26462-7) RDW-CV (test code = 14.6 % 12.0-15.5 788-0) PLT (test code = See_Comment [Automated 777-3) message] The sy stem which generated this result transmitted reference range : 166 - 358 10*3/ ?L. The reference r luca was not used to interpret this result as normal/abnormal . MPV (test code = 10.1 fL 9.5-12.9 14783-6) NRBC/100 WBC (test See_Comment [Automat ed code = 3455219681) message] The system which generated this result transmitted reference range : 0.0 - 10.0 /100 WBCs. The refer ence range was not u sed to interpret th is result as normal/abnormal . NRBC x10^3 (test code <0.01 See_Comment [Auto mated = 5205980037) message] The s ystem which generated this result transmitted reference range : 10*3/?L. The reference range was not used to interpret this result as normal/abnormal . GRAN MAT (NEUT) % 75.2 % (test code = 770-8) IMM GRAN % (test code 0.60 % = 0703087322) LYMPH % (test code = 17.0 % 736-9) MONO % (test code = 5.8 % 5905-5) EOS % (test code = 0.9 % 713-8) BASO % (test code = 0.5 % 706-2) GRAN MAT x10^3(ANC) 8.11 10*3/uL 1.88-7.09 H (test code = 5247269255) IMM GRAN x10^3 (test 0.06 10*3/uL 0.00-0.06 code = 0127222572) LYMPH x10^3 (test code 1.83 10*3/uL 1.32-3.29 = 731-0) MONO x10^3 (test code 0.62 10*3/uL 0.33-0.92 = 742-7) EOS x10^3 (test code = 0.10 10*3/uL 0.03-0.39 711-2) BASO x10^3 (test code 0.05 10*3/uL 0.01-0.07 = 704-7) Lab Interpretation Abnormal (test code = 89390-4) [facility] WITH [id number] 18:39:23 Test Item Value Reference Range Interpretation Comments WBC (test code = See_Comment [Automated 6590-2) message] The sy stem which generated this [...] RDW-SD (test code = 48.4 fL 39.0-49.9 90392-4) RDW-CV (test code = 14.6 % 12.0-15.5 788-0) PLT (test code = See_Comment [Automated 777-3) message] The sy stem which generated this result transmitted reference range : 166 - 358 10*3/ ?L. The reference r luca was not used to interpret this result as normal/abnormal . MPV (test code = 10.1 fL 9.5-12.9 91824-3) NRBC/100 WBC (test See_Comment [Automat ed code = 9154233163) message] The system which generated this result transmitted reference range : 0.0 - 10.0 /100 WBCs. The refer ence range was not u sed to interpret th is result as normal/abnormal . NRBC x10^3 (test code <0.01 See_Comment [Auto mated = 3906418071) message] The s ystem which generated this result transmitted reference range : 10*3/?L. The reference range was not used to interpret this result as normal/abnormal . GRAN MAT (NEUT) % 75.2 % (test code = 770-8) IMM GRAN % (test code 0.60 % = 6887463602) LYMPH % (test code = 17.0 % 736-9) MONO % (test code = 5.8 % 5905-5) EOS % (test code = 0.9 % 713-8) BASO % (test code = 0.5 % 706-2) GRAN MAT x10^3(ANC) 8.11 10*3/uL 1.88-7.09 H (test code = 0121348704) IMM GRAN x10^3 (test 0.06 10*3/uL 0.00-0.06 code = 3221502347) LYMPH x10^3 (test code 1.83 10*3/uL 1.32-3.29 = 731-0) MONO x10^3 (test code 0.62 10*3/uL 0.33-0.92 = 742-7) EOS x10^3 (test code = 0.10 10*3/uL 0.03-0.39 711-2) BASO x10^3 (test code 0.05 10*3/uL 0.01-0.07 = 704-7) Lab Interpretation Abnormal (test code = 74032-4) [facility] PELVIS COMPLETE WITH [id number] 23:13:25Focal echogenicity in the left ovary measuring [...] Otherwise unremarkable pelvic ultrasound.RL: 5611END OF REPORT [facility] CenterLactic Acid Whole [id number] 22:23:55 Test Item Value Reference Range Interpretation Comments LACTIC ACID (test code = 1.49 mmol/L 0.50-2.20 4044036273) Lab Interpretation (test code = Normal 32750-4) [facility] [id number] 22:20:59 1. ?No acute intra-abdominal abnormality. 2. ?Gastric wall thickening is nonspecific but can be seen with gastritis. 3. ?Postsurgical changes of cholecystectomy and appendectomy. Pneumobiliaversus nonradiopaque biliary stents are unchanged dating back to 2016. 4. ?Hepatic steatosis and splenomegaly. The 0.9 cm cystic hypodensity atthe uncinate process is slightly smaller from 03/26/2020. This wasevaluated by [facility] on 09/08/2020, with resultssuggestive of pseudocyst [...] 03/26/2020. This wasevaluated by MR abdomen at [facility] on 09/08/2020, with resultssuggestive of pseudocyst versus side branch IPMN.PreliminaryReport Dictated by Resident: Chester Rivera, Dwight Akers MD., have reviewed this study and agree with the abovereport.[facility] 20:42:19 Test Item Value Reference Range Interpretation Comments APPEARANCE (test code = Clear Clear 1284358289) COLOR (test code = Lisa Yellow A 4814210306) PH (test code = 4.8-8.0 9554922396) SP GRAVITY (test code = 1.003-1.030 0535632814) GLU U QUAL (test code = Normal Normal 0591446016) BLOOD (test code = Negative Negative 2572234617) KETONES (test code = Negative Negative 5756475792) PROTEIN (test code = 30 mg/dL Negative A 2887-8) UROBILIN (test code = 4.0 mg/dL Normal A 5244175559) BILIRUBIN (test code = 2 mg/dL Negative A 6977096647) NITRITE (test code = Negative Negative 9503327128) LEUK NICHOLE (test code = Negative Negative 7539261863) RBC/HPF (test code = See_Comment [Autom ated message] 5415882809) The system [employer]. generated this result transmit gulshan reference range : 0 - 3 HPF. The refe rence range was not u sed to interpret th is result as normal/abnormal . WBC/HPF (test code = See_Comment [Autom ated message] 1267351563) The system [employer]. generated this result transmit gulshan reference range : 0 - 5 HPF. The refe rence range was not u sed to interpret th is result as normal/abnormal . BACTERIA (test code = Few Negative A 3916508862) MUCOUS (test code = Slight Negative LPF A 2304916197) SQ EPITH (test code = HPF 7383603765) HYAL CAST (test code = See_Comment [Aut omated message] 7463993302) The system [employer]. generated this result transmit gulshan reference range : <=2 LPF. The refere nce range was not u sed to interpret th is result as normal/abnormal . Lab Interpretation (test Abnormal code = 03428-1) [facility]. METABOLIC PANEL (50468)2020-12-05 20:38:13 Test Item Value Reference Range Interpretation Comments NA (test code = 139 mmol/L 135-145 7474838930) K (test code = 3.6 mmol/L 3.5-5.0 9510375822) CL (test code = 106 mmol/L 98-108 7968703324) CO2 TOTAL (test code = 21 mmol/L 23-31 L 5722693368) AGAP (test code = 2-16 6621455808) BUN (test code = 12 mg/dL 7-23 3218458228) GLUCOSE (test code = 91 mg/dL 70-110 1382869291) CREATININE (test code = 0.53 mg/dL 0.50-1.04 5400602378) TOTAL BILI (test code = 3.6 mg/dL 0.1-1.1 H 2947340939) CALCIUM (test code = 9.8 mg/dL 8.6-10.6 2658674427) T PROTEIN (test code = 9.1 g/dL 6.3-8.2 H 9759561847) ALBUMIN (test code = 4.6 g/dL 3.5-5.0 4828113064) ALK PHOS (test code = 1229 U/L 34-122 H 9021543345) ALTv (test code = 311 U/L 5-35 H 1742-6) AST(SGOT) (test code = 280 U/L 13-40 H 8536017346) eGFR (test code = mL/min/1.73m2 2480700991) KIM (test code = KIM) Association of [...] tests). Lab Interpretation Abnormal (test code = 82135-5) [facility] Test Item Value Reference Range Interpretation Comments LIPASE (test code = [id number]) 168 U/L 0-220 Lab Interpretation (test code = Normal 07299-3) [facility] WITH [id number] 20:25:55 Test Item Value Reference Range Interpretation [...] RDW-SD (test code = 49.3 fL 39.0-49.9 00519-6) RDW-CV (test code = 15.0 % 12.0-15.5 788-0) PLT (test code = See_Comment [Automated 777-3) message] The sy stem which generated this result transmitted reference range : 166 - 358 10*3/ ?L. The reference r luca was not used to interpret this result as normal/abnormal . MPV (test code = 10.2 fL 9.5-12.9 61396-9) NRBC/100 WBC (test See_Comment [Automat ed code = 4093044246) message] The system which generated this result transmitted reference range : 0.0 - 10.0 /100 WBCs. The refer ence range was not u sed to interpret th is result as normal/abnormal . NRBC x10^3 (test code <0.01 See_Comment [Auto mated = 5230046420) message] The s ystem which generated this result transmitted reference range : 10*3/?L. The reference range was not used to interpret this result as normal/abnormal . GRAN MAT (NEUT) % 68.6 % (test code = 770-8) IMM GRAN % (test code 0.40 % = [id number]) LYMPH % (test code = 21.2 % 736-9) MONO % (test code = 7.8 % 5905-5) EOS % (test code = 1.6 % 713-8) BASO % (test code = 0.4 % 706-2) GRAN MAT x10^3(ANC) 3.50 10*3/uL 1.88-7.09 (test code = 8051898418) IMM GRAN x10^3 (test <0.03 0.00-0.06 code = 4848128330) LYMPH x10^3 (test code 1.08 10*3/uL 1.32-3.29 L = 731-0) MONO x10^3 (test code 0.40 10*3/uL 0.33-0.92 = 742-7) EOS x10^3 (test code = 0.08 10*3/uL 0.03-0.39 711-2) BASO x10^3 (test code <0.03 0.01-0.07 = 704-7) Lab Interpretation Abnormal (test code = 10188-8) [facility]TOTAL CHOLESTEROL, TRIGLYCERIDES, HDL)2020-10-12 16:46:34 Test Item Value Reference Range Interpretation Comments CHOL (test code = 307 mg/dL 120-200 H 9087723785) HDL (test code = 93 mg/dL >50 3953778608) HDLC RATIO (test code = See_Comment [Au tomated message] 2984738961) The system Smarp. generated this result transmit gulshan reference range : <=4.5. The refe rence range was not u sed to interpret th is result as normal/abnormal . TRIG (test code = 131 mg/dL 30-170 2149282472) LDL CHOL (test code = 188 mg/dL See_Comment H [Auto mated message] 97886-6) The system Smarp. generated this result transmit gulshan reference range : <=160. The refe rence range was not u sed to interpret th is result as normal/abnormal . VLDL (test code = 26 mg/dL 5-60 5490919069) Lab Interpretation (test Abnormal code = 87145-7) [facility]Magnesium [id number] 09:02:26 Test Item Value Reference Range Interpretation Comments MAGNESIUM (test code = 5835063490) 1.9 mg/dL 1.7-2.4 Lab Interpretation (test code = Normal 19739-0) [facility] HospitalHEPAT[facility] FUNCTION PANEL (82198) (ALB,T.PRO,BILI T,BU/BC,ALT,AST,ALK PHOS)2020-10-12 09:02:26 Test Item Value Reference Range Interpretation Comments TOTAL BILI (test code = 1518844102) 1.0 mg/dL 0.1-1.1 BILI UNCON (test code = 9255919420) 0.5 mg/dL 0.1-1.1 BILI CONJ (test code = 5765382189) 0.0 mg/dL 0.0-0.3 T PROTEIN (test code = 4334648540) 7.8 g/dL 6.3-8.2 ALBUMIN (test code = 0893530376) 4.3 g/dL 3.5-5.0 ALK PHOS (test code = 5303510658) 608 U/L 34-122 H ALTv (test code = 1742-6) 156 U/L 5-35 H AST(SGOT) (test code = 6272487738) 136 U/L 13-40 H Lab Interpretation (test code = Abnormal 52651-0) [facility] HospitalProthrombin Time / [id number] 08:48:50 Test Item Value Reference Range Interpretation [...] tions. Lab Interpretation (test Normal code = 90869-1) [facility] HospitalaPTT2021-06-30 08:48:50 Test Item Value Reference Range Interpretation Comments APTT Patient (test code See_Comment H [Au tomated message] = 3173-2) The system whic h generated this result transmitted ref erence range: 26 - 36 Seconds. The reference range was not used to int erpret this result as normal/abnormal . Lab Interpretation (test Abnormal code = 86041-8) [facility] with Fmkrieerqjsg6622-87-85 08:31:22 Test Item Value Reference Range Interpretation [...] RDW-SD (test code = 41.3 fL 39.0-49.9 59910-1) RDW-CV (test code = 12.6 % 12.0-15.5 788-0) PLT (test code = See_Comment [Automated 777-3) message] The sy stem which generated this result transmitted reference range : 166 - 358 10*3/ ?L. The reference r luca was not used to interpret this result as normal/abnormal . MPV (test code = 9.1 fL 9.5-12.9 L 64623-8) NRBC/100 WBC (test See_Comment [Automat ed code = 2295479789) message] The system which generated this result transmitted reference range : 0.0 - 10.0 /100 WBCs. The refer ence range was not u sed to interpret th is result as normal/abnormal . NRBC x10^3 (test code <0.01 See_Comment [Auto mated = 0079620979) message] The s ystem which generated this result transmitted reference range : 10*3/?L. The reference range was not used to interpret this result as normal/abnormal . GRAN MAT (NEUT) % 62.6 % (test code = 770-8) IMM GRAN % (test code 0.40 % = 5234389147) LYMPH % (test code = 26.8 % 736-9) MONO % (test code = 7.7 % 5905-5) EOS % (test code = 2.1 % 713-8) BASO % (test code = 0.4 % 706-2) GRAN MAT x10^3(ANC) 3.32 10*3/uL 1.88-7.09 (test code = 4613319384) IMM GRAN x10^3 (test <0.03 0.00-0.06 code = 5828822279) LYMPH x10^3 (test code 1.42 10*3/uL 1.32-3.29 = 731-0) MONO x10^3 (test code 0.41 10*3/uL 0.33-0.92 = 742-7) EOS x10^3 (test code = 0.11 10*3/uL 0.03-0.39 711-2) BASO x10^3 (test code <0.03 0.01-0.07 = 704-7) Lab Interpretation Abnormal (test code = 52262-5) [facility] METABOLIC PANEL (NA, K, CL, CO2, GLUCOSE, BUN, CREATININE, CA)2020-10-12 04:16:15 Test Item Value Reference Range Interpretation Comments NA (test code = 138 mmol/L 135-145 6592564943) K (test code = 4.1 mmol/L 3.5-5.0 7257752999) CL (test code = 104 mmol/L 98-108 5639110757) CO2 TOTAL (test code 23 mmol/L 23-31 = 8502151273) AGAP (test code = 2-16 6836572966) BUN (test code = 16 mg/dL 7-23 9620318992) GLUCOSE (test code = 83 mg/dL 70-110 4347016146) CREATININE (test code 0.63 mg/dL 0.50-1.04 = 5628788206) CALCIUM (test code = 9.4 mg/dL 8.6-10.6 5367160092) eGFR (test code = mL/min/1.73m2 3125834781) KIM (test code = KIM) Association of [...] or urine or abnormalities in imaging tests). [facility] HospitalHEPATIC FUNCTION PANEL (32564) (ALB,T.PRO,BILI T,BU/BC,ALT,AST,ALK PHOS)2020-10-12 04:16:15 Test Item Value Reference Range Interpretation Comments TOTAL BILI (test code = 3593153167) 1.1 mg/dL 0.1-1.1 BILI UNCON (test code = 5347087516) 0.5 mg/dL 0.1-1.1 BILI CONJ (test code = 0940153670) 0.0 mg/dL 0.0-0.3 T PROTEIN (test code = 3657427148) 8.5 g/dL 6.3-8.2 H ALBUMIN (test code = 0523391529) 4.6 g/dL 3.5-5.0 ALK PHOS (test code = 1413672096) 679 U/L 34-122 H ALTv (test code = 1742-6) 168 U/L 5-35 H AST(SGOT) (test code = 5224176068) 143 U/L 13-40 H Lab Interpretation (test code = Abnormal 21617-6) [facility] HospitalCOVID[facility]19 (ID NOW RAPID TESTING)2020-10-11 16:36:41 Test Item Value Reference Range Interpretation Comments SARS-CoV-2 Rapid ID NOW Not Detected Not Detected (test code = 78929-0) KIM (test code = KIM) ID NOW COVID-19 Assay is an isothermal nucleic acid amplification test intended for the qualitative detection of nucleic acid from SARS-CoV-2 viral RNA in nasopharyngeal ([address]) specimens. It is used under Emergency Use [...] indicated. Lab Interpretation Normal (test code = 93617-5) [facility] HospitalUS GALL [id number] 15:28:53HISTORY: Rule out biliary duct stenosis. COMPARISON: [...] ductstenosis cannot be adequately evaluated by this study.[facility], Radiant Results Inft User - [...] ductstenosis cannot be adequately evaluated by this study.[facility] Troponin [id number] 14:35:05 Test Item Value Reference Interpretation Comments Range TROPONIN I (test 0.004 ng/mL See_Comment [Automated code = 2547882803) message] The system which generated this result [...] biotin. Lab Interpretation Normal (test code = 26971-5) [facility] HospitalHepatic Function Panel (ALB, T.PRO, BILI T, BU/BC, ALT, AST, ALK PHOS)2020-10-11 14:24:25 Test Item Value Reference Range Interpretation Comments TOTAL BILI (test code = 1234727676) 0.9 mg/dL 0.1-1.1 BILI UNCON (test code = 5721238712) 0.3 mg/dL 0.1-1.1 BILI CONJ (test code = 4120312960) 0.0 mg/dL 0.0-0.3 T PROTEIN (test code = 7785000960) 9.0 g/dL 6.3-8.2 H ALBUMIN (test code = 8076014220) 4.8 g/dL 3.5-5.0 ALK PHOS (test code = 5145060012) 752 U/L 34-122 H ALTv (test code = 1742-6) 164 U/L 5-35 H AST(SGOT) (test code = 6347911715) 166 U/L 13-40 H Lab Interpretation (test code = Abnormal 47727-6) [facility] HospitalBasic Metabolic Panel (NA, K, CL, CO2, GLUCOSE, BUN, CREATININE, CA)2020-10-11 14:24:05 Test Item Value Reference Range Interpretation Comments NA (test code = 139 mmol/L 135-145 8326333262) K (test code = 4.3 mmol/L 3.5-5.0 6703395014) CL (test code = 106 mmol/L 98-108 4271087744) CO2 TOTAL (test code = 22 mmol/L 23-31 L 3045562683) AGAP (test code = 2-16 1268108756) BUN (test code = 15 mg/dL 7-23 0981060805) GLUCOSE (test code = 106 mg/dL 70-110 2294071766) CREATININE (test code = 0.63 mg/dL 0.50-1.04 3837559142) CALCIUM (test code = 10.0 mg/dL 8.6-10.6 1490640577) eGFR (test code = mL/min/1.73m2 7206864079) KIM (test code = KIM) Association of [...] tests). Lab Interpretation Abnormal (test code = 97717-4) [facility] HospitalLipase [id number] 14:24:05 Test Item Value Reference Range Interpretation Comments LIPASE (test code = 2477731804) 169 U/L 0-220 Lab Interpretation (test code = Normal 06599-1) [facility] HospitalUrinalysis2021-06-29 14:23:55 Test Item Value Reference Range Interpretation Comments APPEARANCE (test code = Hazy Clear A 3848772939) COLOR (test code = Yellow Yellow 3173458365) PH (test code = 4.8-8.0 6452791334) SP GRAVITY (test code = 1.003-1.030 5201262770) GLU U QUAL (test code = Normal Normal 1657952182) BLOOD (test code = Negative Negative 5020176335) KETONES (test code = Negative Negative 1051716821) PROTEIN (test code = Negative Negative 2887-8) UROBILIN (test code = Normal Normal 3374130604) BILIRUBIN (test code = Negative Negative 3629850572) NITRITE (test code = Negative Negative 1511367608) LEUK NICHOLE (test code = Negative Negative 5701714565) RBC/HPF (test code = See_Comment [Autom ated message] 7806978039) The system Smarp. generated this result transmitted ref erence range: 0 - 3 HP F. The reference range was not used to int erpret this result as normal/abnormal . WBC/HPF (test code = See_Comment [Autom ated message] 1573462073) The system Smarp. generated this result transmitted ref erence range: 0 - 5 HP F. The reference range was not used to int erpret this result as normal/abnormal . BACTERIA (test code = Few Negative A 3915270191) AMORPHOUS (test code = Rare Rare HPF 5831900649) SQ EPITH (test code = HPF 8047992148) HYAL CAST (test code = See_Comment H [Aut omated message] 2574103665) The system Smarp. generated this result transmitted ref erence range: <=2 LPF. The reference range was not used to int erpret this result as normal/abnormal . Lab Interpretation (test Abnormal code = 89959-8) [facility] with Awupadzketwc9034-24-63 14:14:01 Test Item Value Reference Range Interpretation Comments WBC (test code = See_Comment [Automated message] 6690-2) The system Smarp. generated this result transmitted ref erence range: 4.30 - 1 1.10 10*3/?L. The re ference range was not u sed to interpret this result as normal/abnor mal. RBC (test code = See_Comment [Automated message] 789-8) The system Smarp. generated this result transmitted ref erence range: [...] RDW-SD (test code 40.1 fL 39.0-49.9 = 92583-0) RDW-CV (test code 12.3 % 12.0-15.5 = 788-0) PLT (test code = See_Comment [Automated message] 777-3) The system whic h generated this result transmitted ref erence range: 166 - 35 8 10*3/?L. The re ference range was not u sed to interpret this result as normal/abnor mal. MPV (test code = 9.7 fL 9.5-12.9 54767-7) NRBC/100 WBC (test See_Comment [Automat ed message] code = 8624170779) The syste m which generated this result transmitted ref erence range: 0.0 - 10 .0 /100 WBCs. The refer ence range was not u sed to interpret this result as normal/abnor mal. NRBC x10^3 (test <0.01 See_Comment [Automated message] code = 1795698311) The syste m which generated this result transmitted ref erence range: 10*3/?L. The reference range was not used to interpr et this result as normal/abnormal . GRAN MAT (NEUT) % 63.7 % (test code = 770-8) IMM GRAN % (test 0.40 % code = 7013949849) LYMPH % (test code 26.2 % = 736-9) MONO % (test code 7.6 % = 5905-5) EOS % (test code = 1.7 % 713-8) BASO % (test code 0.4 % = 706-2) GRAN MAT 3.45 10*3/uL 1.88-7.09 x10^3(ANC) (test code = 1120955886) IMM GRAN x10^3 <0.03 0.00-0.06 (test code = 4135294071) LYMPH x10^3 (test 1.42 10*3/uL 1.32-3.29 code = 731-0) MONO x10^3 (test 0.41 10*3/uL 0.33-0.92 code = 742-7) EOS x10^3 (test 0.09 10*3/uL 0.03-0.39 code = 711-2) BASO x10^3 (test <0.03 0.01-0.07 code = 704-7) [facility]. METABOLIC PANEL (72715)2020-10-04 23:43:59 Test Item Value Reference Range Interpretation Comments NA (test code = 138 mmol/L 135-145 1412380741) K (test code = 4.1 mmol/L 3.5-5.0 9603619482) CL (test code = 105 mmol/L 98-108 7930628521) CO2 TOTAL (test code = 26 mmol/L 23-31 4622213164) AGAP (test code = 2-16 9239769733) BUN (test code = 12 mg/dL 7-23 0789143548) GLUCOSE (test code = 124 mg/dL 70-110 H 2169165364) CREATININE (test code = 0.51 mg/dL 0.50-1.04 5109367459) TOTAL BILI (test code = 1.0 mg/dL 0.1-1.9 5841605223) CALCIUM (test code = 9.3 mg/dL 8.6-10.6 8587710460) T PROTEIN (test code = 7.9 g/dL 6.3-8.2 2095066046) ALBUMIN (test code = 4.1 g/dL 3.5-5.0 4403544412) ALK PHOS (test code = 619 U/L 34-122 H 5737328031) ALTv (test code = 99 U/L 5-35 H 1742-6) AST(SGOT) (test code = 97 U/L 13-40 H 6474217064) eGFR (test code = mL/min/1.73m2 8695621788) KIM (test code = KIM) Association of [...] tests). Lab Interpretation Abnormal (test code = 46434-8) [facility] HospitalLIPASE2021-06-[facility] 23:43:38 Test Item Value Reference Range Interpretation Comments LIPASE (test code = 0580518958) 182 U/L 0-220 Lab Interpretation (test code = Normal 20793-9) [facility] HospitalCOVID[facility]19 (ID NOW RAPID TESTING)2020-10-04 23:39:59 Test Item Value Reference Range Interpretation Comments SARS-CoV-2 Rapid ID NOW Not Detected Not Detected (test code = 86325-8) KIM (test code = KIM) ID NOW COVID-19 Assay is an isothermal nucleic acid amplification test intended for the qualitative detection of nucleic acid from SARS-CoV-2 viral RNA in nasopharyngeal ([address]) specimens. It is used under Emergency Use [...] indicated. Lab Interpretation Normal (test code = 58584-8) [facility] HospitalURINALYSIS2021-06-22 23:36:26 Test Item Value Reference Range Interpretation Comments APPEARANCE (test code = Clear Clear 8337045150) COLOR (test code = Lisa Yellow A 7486190996) PH (test code = 4.8-8.0 7454992922) SP GRAVITY (test code = 1.003-1.030 6708370561) GLU U QUAL (test code = Normal Normal 0327347962) BLOOD (test code = Negative Negative 3250291971) KETONES (test code = Negative Negative 2624895470) PROTEIN (test code = Negative Negative 2887-8) UROBILIN (test code = 4.0 mg/dL Normal A 7125891389) BILIRUBIN (test code = Negative Negative 5190507743) NITRITE (test code = Negative Negative 4396468935) LEUK NICHOLE (test code = Negative Negative 9869377779) RBC/HPF (test code = See_Comment [Autom ated message] 3885397960) The system Smarp. generated this result transmit gulshan reference range : 0 - 3 HPF. The refe rence range was not u sed to interpret th is result as normal/abnormal . WBC/HPF (test code = <1 See_Comment [Autom ated message] 2654731470) The system Smarp. generated this result transmit gulshan reference range : 0 - 5 HPF. The refe rence range was not u sed to interpret th is result as normal/abnormal . BACTERIA (test code = Few Negative A 5861921536) MUCOUS (test code = Slight Negative LPF A 1319174173) SQ EPITH (test code = HPF 4491729023) Lab Interpretation (test Abnormal code = 58063-9) [facility] HospitalCB WITH [id number] 23:29:18 Test Item Value Reference Range Interpretation [...] RDW-SD (test code = 40.5 fL 39.0-49.9 88434-9) RDW-CV (test code = 12.2 % 12.0-15.5 788-0) PLT (test code = See_Comment [Automated 777-3) message] The sy stem which generated this result transmitted reference range : 166 - 358 10*3/ ?L. The reference r luca was not used to interpret this result as normal/abnormal . MPV (test code = 9.8 fL 9.5-12.9 31183-5) NRBC/100 WBC (test See_Comment [Automat ed code = 3950764201) message] The system which generated this result transmitted reference range : 0.0 - 10.0 /100 WBCs. The refer ence range was not u sed to interpret th is result as normal/abnormal . NRBC x10^3 (test code <0.01 See_Comment [Auto mated = 2099344954) message] The s ystem which generated this result transmitted reference range : 10*3/?L. The reference range was not used to interpret this result as normal/abnormal . GRAN MAT (NEUT) % 72.0 % (test code = 770-8) IMM GRAN % (test code 0.20 % = 6272868812) LYMPH % (test code = 19.8 % 736-9) MONO % (test code = 6.4 % 5905-5) EOS % (test code = 1.4 % 713-8) BASO % (test code = 0.2 % 706-2) GRAN MAT x10^3(ANC) 3.06 10*3/uL 1.88-7.09 (test code = 4245158733) IMM GRAN x10^3 (test <0.03 0.00-0.06 code = 6343341210) LYMPH x10^3 (test code 0.84 10*3/uL 1.32-3.29 L = 731-0) MONO x10^3 (test code 0.27 10*3/uL 0.33-0.92 L = 742-7) EOS x10^3 (test code = 0.06 10*3/uL 0.03-0.39 711-2) BASO x10^3 (test code <0.03 0.01-0.07 = 704-7) Lab Interpretation Abnormal (test code = 20200-9) [facility] HospitalMR, ABDOMEN, [id number] 13:41:00Liver Protocol with ElastographyUnlisted Reason for Exam - Click Yes and Enter Reason Below->YesUnlisted Reason for Exam->History of liver fibrosis [facility] : 1960 Sex: FFINAL REPORT [...] Saeed Verified Date/Time: 09/08/2020 13:41:30 Reading Location: [place] [id number] Ortho Consult Reading Room PROTHROMBIN TIME/[id number] 04:34:00 Test Item Value Reference Range Interpretation Comments PROTIME (BEAKER) 11.7 seconds 11.9-14.2 L (test code = 759) INR (BEAKER) (test 0.88 See_Comment [Automat ed message] code = 370) The system Smarp. generated this result transmitted ref erence range: <=5.90. The reference range was not used to int erpret this result as normal/abnormal . RECOMMENDED COUMADIN/WARFARIN INR THERAPY RANGESSTANDARD DOSE: 2.0 - 3.0 Includes: PROPHYLAXIS for venous thrombosis, systemic embolization; TREATMENT for venous thrombosis and/or pulmonary embolus.HIGH RISK: Target INR is 2.5-3.5 for patients with mechanical heart valves.BASIC METABOLIC [id number] 04:51:00 Test Item Value Reference Range Interpretation [...] S NOT APPLICABLE FOR DIALYSIS PATIEN TS. Mds Rn ID - ALAINA WHEPATIC FUNCTION [id number] 04:51:00 Test Item Value Reference Range Interpretation [...] code = 132 U/L 6-55 H 347) Mds Rn ID Ryan FOLEY [id number] 04:51:00 Test Item Value Reference Range Interpretation Comments LIPASE (BEAKER) (test code = 749) 115 U/L 8-78 H Mds Rn ID Ryan FOLEY WPROTHROMBIN TIME/[id number] 04:25:00 Test Item Value Reference Range Interpretation Comments PROTIME (BEAKER) 12.3 seconds 11.9-14.2 (test code = 759) INR (BEAKER) (test 0.94 See_Comment [Automat ed message] code = 370) The system Smarp. generated this result transmitted ref erence range: <=5.90. The reference range was not used to int erpret this result as normal/abnormal . RECOMMENDED COUMADIN/WARFARIN INR THERAPY RANGESSTANDARD DOSE: 2.0 - 3.0 Includes: PROPHYLAXIS for venous thrombosis, systemic embolization; TREATMENT for venous thrombosis and/or pulmonary embolus.HIGH RISK: Target INR is 2.5-3.5 for patients with mechanical heart valves.FL, [id number] 08:00:00INTRA OP IMAGIN Reason for exam:->[facility]p [facility] : 1960 Sex: FFluoroscopic unit utilized for a procedure performed in the OR. No interpretation was requested. Refer to the operative report for findings. Refer to PACS for patient radiation dose information.SARS-COV2/RT-PCR ([facility])2020-09-06 06:35:00 Test Item Value Reference Range Interpretation Comments SARS-COV2/RT-PCR (test Negative Not Detected, Negative, code = 5291544) See external report for linked test SARS-COV-2 PERFORMING LAB [facility] DEVAN (test code = 1167901) Negative result for this test determines that [...] the Simms SARS-CoV-2 assay.Fact Sheet for Healthcare Providers:https://www.[employer].Lumaqco/bertha/RT_SAR R-BtB-6_YFF_Axrb_Ezftv_03-757046.pdfFact Sheet for Healthcare Patients:https://www.Clinicbook/s al/BH_HFSB-TgG-7_Rmuuvor_Jijj_Fdkqh_GN_43-998101G8.pdfPerforming Laboratory:[facility] [place] [address] PROTHROMBIN TIME/[id number] 04:41:00 Test Item Value Reference Range Interpretation Comments PROTIME (BEAKER) 12.4 seconds 11.9-14.2 (test code = 759) INR (BEAKER) (test 0.95 See_Comment [Automat ed message] code = 370) The system Smarp. generated this result transmitted ref erence range: <=5.90. The reference range was not used to int erpret this result as normal/abnormal . RECOMMENDED COUMADIN/WARFARIN INR THERAPY RANGESSTANDARD DOSE: 2.0 - 3.0 Includes: PROPHYLAXIS for venous thrombosis, systemic embolization; TREATMENT for venous thrombosis and/or pulmonary embolus.HIGH RISK: Target INR is 2.5-3.5 for patients with mechanical heart valves.[id number] 14:40:00 Test Item Value Reference Range Interpretation Comments MAGNESIUM (BEAKER) 1.9 mg/dL 1.6-2.6 Specimen slightly (test code = 627) hemolyzed Mds Rn HONG - MIGDALIA FBASIC METABOLIC [id number] 14:40:00 Test Item Value Reference Range Interpretation [...] S NOT APPLICABLE FOR DIALYSIS PATIEN TS. Mds Rn ID Ryan MIGDALIA FHEPATIC FUNCTION [id number] 14:40:00 Test Item Value Reference Range Interpretation [...] Specimen slightly (test code = 347) hemolyzed Mds Rn ID - MIGDALIA [id number] 14:40:00 Test Item Value Reference Range Interpretation Comments LIPASE (BEAKER) (test code = 749) 446 U/L 8-78 H Mds Rn ID Ryan MIGDALIA FCBC W/PLT COUNT & AUTO [id number] 14:14:00 Test Item Value Reference Range Interpretation [...] PERCENT (BEAKER) (test code = 2801) [place], [id number] 08:35:00Reason for exam:->abnormal imaging [facility] : 1960 Sex: FFluoroscopic unit utilized for a procedure performed in the OR. No interpretation was requested. Refer to the operative report for findings. Refer to PACS for patient radiation dose information.[id number] 06:42:00 Test Item Value Reference Range Interpretation Comments MAGNESIUM (BEAKER) (test code = 1.8 mg/dL 1.6-2.6 627) Mds Rn ID - [id number] 06:42:00 Test Item Value Reference Range Interpretation Comments PHOSPHORUS (BEAKER) (test code = 3.4 mg/dL 2.3-4.7 604) Mds Rn ID - EDASIHEPATIC FUNCTION [id number] 06:42:00 Test Item Value Reference Range Interpretation [...] code = 89 U/L 6-55 H 347) Mds Rn ID - EDASIBASIC METABOLIC [id number] 06:42:00 Test Item Value Reference Range Interpretation [...] S NOT APPLICABLE FOR DIALYSIS PATIEN TS. Mds Rn ID - EDASICBC W/PLT COUNT & AUTO [id number] 05:27:00 Test Item Value Reference Range Interpretation [...] SARS-COV2/RT-PCR ([facility])2020-08-26 12:43:00 Test Item Value Reference Range Interpretation Comments SARS-COV2/RT-PCR (test Negative Not Detected, Negative, code = 0819068) See external report for linked test SARS-COV-2 PERFORMING LAB [facility] (test code = 1259937) Negative result for this test determines that [...] of the Act.Fact Sheet for Healthcare Prov iders:https://www.[employer]/sites/default/files/product/documents/Fact_Sheet_HC _Pkcstkltq_Epsv_IZNC-BlO-3.pdfFact Sheet for Healthcare Patients:https://www.[employer]/sites/default/files/product/docume nts/Xvpu_Nvveu_Rbfnudux_Ksum_VMUD-TuV-7.pdfPerforming Laboratory:[facility] [place] [address].[place], [place] [address]IVMIS METABOLIC PANEL 2020-08-26 06:19:00 Test Item Value [...] S NOT APPLICABLE FOR DIALYSIS PATIEN TS. Mds Rn ID - DONNA [id number] 06:19:00 Test Item Value Reference Range Interpretation Comments MAGNESIUM (BEAKER) (test code = 1.8 mg/dL 1.6-2.6 627) Mds Rn ID - DONNA LHEPATIC FUNCTION [id number] 06:19:00 Test Item Value Reference Range Interpretation [...] code = 82 U/L 6-55 H 347) Mds Rn ID - DONNA LCBC W/PLT COUNT & AUTO [id number] 05:37:00 Test Item Value Reference Range Interpretation [...] images do not require a Radiology diagnostic report.[facility] HospitalFL TIME OR (NON-REPORTABLE)2020-07-18 13:25:02These images do not require a Radiology diagnostic report.General acute hospital GLUCOSE (AUTOMATED) 2020-07-18 12:07:46 Test Item Value Reference Range Interpretation Comments POCT GLU (test code = 9529374272) 98 mg/dL 70-110 Lab Interpretation (test code = Normal 67266-8) General acute hospital GLUCOSE (AUTOMATED)2020-07-18 12:07:46 Test Item Value Reference Range Interpretation Comments POCT GLU (test code = [id number]) 98 mg/dL 70-110 Lab Interpretation (test code = Normal 10660-7) [facility] [id number] 01:39:22 1. ?No acute obstruction or inflammation [...] There is abundant stool throughoutthe colon.RL: [facility] [id number] 00:55:45 Test Item Value Reference Range Interpretation Comments TROPONIN I (test 0.002 ng/mL See_Comment [Automated code = [id number]) message] The system which generated this result [...] ? Lab Interpretation Normal (test code = 11889-6) [facility] RAPID TESTING)2020-07-08 00:47:04 Test Item Value Reference Range Interpretation Comments SARS-CoV-2 Rapid ID NOW Not Detected Not Detected (test code = 67282-7) KIM (test code = KIM) ID NOW COVID-19 Assay is an isothermal nucleic acid amplification test intended for the qualitative detection of nucleic acid from SARS-CoV-2 viral RNA in nasopharyngeal ([facility] [address]) specimens. It is used under Emergency Use [...] indicated. Lab Interpretation Normal (test code = 45316-6) [facility] 00:45:06 Test Item Value Reference Range Interpretation Comments MAGNESIUM (test code = 1936416319) 2.0 mg/dL 1.7-2.4 Lab Interpretation (test code = Normal 12201-7) [facility]OLIC PANEL (14633)2020-07-08 00:44:41 Test Item Value Reference Range Interpretation Comments NA (test code = 139 mmol/L 135-145 8442943044) K (test code = 4.4 mmol/L 3.5-5.0 2757118078) CL (test code = 108 mmol/L 98-108 4290424901) CO2 TOTAL (test code = 23 mmol/L 23-31 3689572378) AGAP (test code = 2-16 2386227901) BUN (test code = 22 mg/dL 7-23 9735591539) GLUCOSE (test code = 107 mg/dL 70-110 1262977560) CREATININE (test code = 0.62 mg/dL 0.50-1.04 3886369368) TOTAL BILI (test code = 0.9 mg/dL 0.1-1.6 2513485443) CALCIUM (test code = 10.0 mg/dL 8.6-10.6 8816952119) T PROTEIN (test code = 8.3 g/dL 6.3-8.2 H 7652063399) ALBUMIN (test code = 4.8 g/dL 3.5-5.0 7050545638) ALK PHOS (test code = 1085 U/L 34-122 H 4194704201) ALTv (test code = 383 U/L 5-35 H 1742-6) AST(SGOT) (test code = 217 U/L 13-40 H 5463497689) eGFR Calculation mL/min/1.73m2 (Non-) (test code = 6409083421) eGFR Calculation mL/min/1.73m2 () (test code = 1749850803) KIM (test code = KIM) Association of [...] tests). Lab Interpretation Abnormal (test code = 36249-6) [facility] 00:44:41 Test Item Value Reference Range Interpretation Comments LIPASE (test code = 0918685884) 131 U/L 0-220 Lab Interpretation (test code = Normal 39248-2) [facility]2021-[facility]-26 00:38:06 Test Item Value Reference Range Interpretation Comments APPEARANCE (test code = Clear Clear 4784599027) COLOR (test code = Yellow Yellow 9018245340) PH (test code = 4.8-8.0 3380226826) SP GRAVITY (test code = 1.003-1.030 6317927112) GLU U QUAL (test code = Normal Normal 6320217353) BLOOD (test code = Negative Negative 2004770433) KETONES (test code = Negative Negative 8310162818) PROTEIN (test code = Negative Negative 2887-8) UROBILIN (test code = 4.0 mg/dL Normal A 7711599282) BILIRUBIN (test code = Negative Negative 2447714526) NITRITE (test code = Negative Negative 1605986914) LEUK NICHOLE (test code = Negative Negative 5044484680) RBC/HPF (test code = <1 See_Comment [Autom ated message] 2836043379) The system [employer]. generated this result transmit gulshan reference range : 0 - 3 HPF. The refe rence range was not u sed to interpret th is result as normal/abnormal . WBC/HPF (test code = See_Comment [Autom ated message] 1200819201) The system [employer]. generated this result transmit gulshan reference range : 0 - 5 HPF. The refe rence range was not u sed to interpret th is result as normal/abnormal . BACTERIA (test code = Few Negative A 5481541046) MUCOUS (test code = Slight Negative LPF A 0168413097) SQ EPITH (test code = HPF 3691041117) Lab Interpretation (test Abnormal code = 32878-0) [facility] WITH [id number] 00:32:00 Test Item Value Reference Range Interpretation Comments WBC (test code = See_Comment [Automated 9390-2) message] The sy stem which generated this result transmitted reference range : 4.30 - 11.10 10*3/?L. The reference range was not used to interpret this result as normal/abnormal . RBC (test code = See_Comment [Automated 994-8) message] The sy stem which generated this [...] RDW-SD (test code = 48.1 fL 39.0-49.9 91114-2) RDW-CV (test code = 14.5 % 12.0-15.5 788-0) PLT (test code = See_Comment [Automated 777-3) message] The sy stem which generated this result transmitted reference range : 166 - 358 10*3/ ?L. The reference r luca was not used to interpret this result as normal/abnormal . MPV (test code = 9.5 fL 9.5-12.9 59284-1) NRBC/100 WBC (test See_Comment [Automat ed code = 6802640252) message] The system which generated this result transmitted reference range : 0.0 - 10.0 /100 WBCs. The refer ence range was not u sed to interpret th is result as normal/abnormal . NRBC x10^3 (test code <0.01 See_Comment [Auto mated = 9734758406) message] The s ystem which generated this result transmitted reference range : 10*3/?L. The reference range was not used to interpret this result as normal/abnormal . GRAN MAT (NEUT) % 78.2 % (test code = 770-8) IMM GRAN % (test code 0.60 % = 4492585701) LYMPH % (test code = 11.9 % 736-9) MONO % (test code = 8.3 % 5905-5) EOS % (test code = 0.5 % 713-8) BASO % (test code = 0.5 % 706-2) GRAN MAT x10^3(ANC) 7.55 10*3/uL 1.88-7.09 H (test code = 1280423997) IMM GRAN x10^3 (test 0.06 10*3/uL 0.00-0.06 code = 7418205143) LYMPH x10^3 (test code 1.15 10*3/uL 1.32-3.29 L = 731-0) MONO x10^3 (test code 0.80 10*3/uL 0.33-0.92 = 742-7) EOS x10^3 (test code = 0.05 10*3/uL 0.03-0.39 711-2) BASO x10^3 (test code 0.05 10*3/uL 0.01-0.07 = 704-7) Lab Interpretation Abnormal (test code = 02883-2) [facility] TIME OR (NON-REPORTABLE)2020-07-04 13:40:03 These images do not require a Radiology diagnostic report.[facility] TIME OR (NON-REPORTABLE)2020-06-20 14:58:12These images do not require a Radiology diagnostic report.[facility] Metabolic Panel (NA, K, CL, CO2, GLUCOSE, BUN, CREATININE, CA)2020-05-06 23:29:00 Test Item Value Reference Range Interpretation Comments NA (test code = 138 mmol/L 135-145 5377574354) K (test code = 4.4 mmol/L 3.5-5 7087305204) CL (test code = 108 mmol/L 98-108 7810285322) CO2 TOTAL (test code = 20 mmol/L 23-31 L 2986719551) AGAP (test code = 2-16 8804124446) BUN (test code = 18 mg/dL 7-23 3147517806) GLUCOSE (test code = 90 mg/dL 70-110 8819763274) CREATININE (test code = 0.68 mg/dL 0.5-1.04 6037006522) CALCIUM (test code = 9.1 mg/dL 8.6-10.6 6025882462) eGFR Calculation mL/min/1.73m2 (Non-) (test code = 3614049741) eGFR Calculation mL/min/1.73m2 () (test code = 7027308320) KIM (test code = KIM) Association of [...] tests). Lab Interpretation Abnormal (test code = 17640-6) [facility] (ALB, T.PRO, BILI T, BU/BC, ALT, AST, ALK PHOS)2020-05-06 23:28:00 Test Item Value Reference Range Interpretation Comments TOTAL BILI (test code = 6855166117) 1.1 mg/dL 0.1-1.1 BILI UNCON (test code = 6101509416) 0.4 mg/dL 0.1-1.1 BILI CONJ (test code = 2378703134) 0.0 mg/dL 0-0.3 T PROTEIN (test code = 9390855573) 7.9 g/dL 6.3-8.2 ALBUMIN (test code = 3802691844) 4.4 g/dL 3.5-5 ALK PHOS (test code = 2545016360) 984 U/L 34-122 H ALTv (test code = 1742-6) 218 U/L 5-35 H AST(SGOT) (test code = 5467873757) 133 U/L 13-40 H Lab Interpretation (test code = Abnormal 49624-6) [facility] HospitalTroponin [id number] 22:19:00 Test Item Value Reference Range Interpretation Comments TROPONIN I (test 0.021 ng/mL See_Comment [Automated code = 9151450756) message] The system which generated this result [...] ? Lab Interpretation Normal (test code = 34782-8) [facility] ([facility] NOW RAPID TESTING)2020-05-06 22:13:00 Test Item Value Reference Range Interpretation Comments SARS-CoV-2 Rapid ID NOW Not Detected Not Detected (test code = 15570-4) KIM (test code = KIM) ID NOW COVID-19 Assay is an isothermal nucleic acid amplification test intended for the qualitative detection of nucleic acid from SARS-CoV-2 viral RNA in nasopharyngeal ([address]) specimens. It is used under Emergency Use [...] indicated. Lab Interpretation Normal (test code = 59562-4) [facility] HospitalUrinalysis2021-01-22 22:09:00 Test Item Value Reference Range Interpretation Comments APPEARANCE (test code = Clear Clear 7597086284) COLOR (test code = Yellow Yellow 8543887371) PH (test code = 4.8-8.0 6757944669) SP GRAVITY (test code = 1.003-1.030 2967968926) GLU U QUAL (test code = Normal Normal 4374769412) BLOOD (test code = Negative Negative INTERFERE NCE FROM 9433268359) ASCORBIC ACID M AY CAUSE FALSE NEG ATIVE RESULT KETONES (test code = Negative Negative 6243338358) PROTEIN (test code = Negative Negative 2887-8) UROBILIN (test code = 2.0 mg/dL Normal A 1081710841) BILIRUBIN (test code = Negative Negative 3293324956) NITRITE (test code = Negative Negative 9267501716) LEUK NICHOLE (test code = Negative Negative 7683596907) RBC/HPF (test code = See_Comment [Autom ated message] 1824921672) The system Sm[employer]. generated this result transmitted ref erence range: 0 - 3 HP F. The reference range was not used to int erpret this result as normal/abnormal . WBC/HPF (test code = See_Comment [Autom ated message] 8722894395) The system [employer]. generated this result transmitted ref erence range: 0 - 5 HP F. The reference range was not used to int erpret this result as normal/abnormal . BACTERIA (test code = Few Negative A 7448835938) SQ EPITH (test code = HPF 9898303024) HYAL CAST (test code = See_Comment [Aut omated message] 4431751464) The system [employer]. generated this result transmitted ref erence range: <=2 LPF. The reference range was not used to int erpret this result as normal/abnormal . Lab Interpretation Abnormal (test code = 70458-1) [facility] HospitalLipase [id number] 22:08:00 Test Item Value Reference Range Interpretation Comments LIPASE (test code = 1131661177) 114 U/L 0-220 Lab Interpretation (test code = Normal 28445-6) [facility] with [id number] 22:02:00 Test Item Value Reference Range Interpretation [...] RDW-SD (test code = 41.0 fL 39-49.9 69628-5) RDW-CV (test code = 12.4 % 12-15.5 788-0) PLT (test code = See_Comment [Automated 777-3) message] The sy stem which generated this result transmitted reference range : 166 - 358 10*3/ ?L. The reference r luca was not used to interpret this result as normal/abnormal . MPV (test code = 10.5 fL 9.5-12.9 20492-5) NRBC/100 WBC (test See_Comment [Automat ed code = 0801102619) message] The system which generated this result transmitted reference range : 0.0 - 10.0 /100 WBCs. The refer ence range was not u sed to interpret th is result as normal/abnormal . NRBC x10^3 (test code <0.01 See_Comment [Auto mated = 0462674805) message] The s Lo[employer] which generated this result transmitted reference range : 10*3/?L. The reference range was not used to interpret this result as normal/abnormal . GRAN MAT (NEUT) % 71.8 % (test code = 770-8) IMM GRAN % (test code 0.10 % = 6168148547) LYMPH % (test code = 19.0 % 736-9) MONO % (test code = 6.2 % 5905-5) EOS % (test code = 2.2 % 713-8) BASO % (test code = 0.7 % 706-2) GRAN MAT x10^3(ANC) 4.83 10*3/uL 1.88-7.09 (test code = 2814901769) IMM GRAN x10^3 (test <0.03 0-0.06 code = 4352666536) LYMPH x10^3 (test code 1.28 10*3/uL 1.32-3.29 L = 731-0) MONO x10^3 (test code 0.42 10*3/uL 0.33-0.92 = 742-7) EOS x10^3 (test code = 0.15 10*3/uL 0.03-0.39 711-2) BASO x10^3 (test code 0.05 10*3/uL 0.01-0.07 = 704-7) Lab Interpretation Abnormal (test code = 16753-3) [facility] 1 [id number] 21:48:28Findings and Impression: ?Subcentimeter calcified granuloma projecting [...] is normal to mildly enlarged. No acuteosseous abnormalities.[facility] Hospital[facility]inalysis2020-12-12 05:27:00 Test Item Value Reference Range Interpretation Comments APPEARANCE (test code Slightly Cloudy Clear A = 8994981266) COLOR (test code = Yellow Yellow 4626132357) PH (test code = 4.8-8.0 3528632705) SP GRAVITY (test code >=1.030 1.003-1.030 = 3849048959) GLU U QUAL (test code Negative Negative = 3187477715) BLOOD (test code = Trace Negative A 9325016686) KETONES (test code = Negative Negative 7811218488) PROTEIN (test code = Negative Negative 2887-8) UROBILIN (test code = 1.0 mg/dL See_Comment [Auto mated 7983363888) message] The system which generated this result transmit gulshan reference range : 0-1.0 mg/dL. Th e reference range was not used to interpret this result as normal/abnormal . BILIRUBIN (test code Small Negative A = 5768331476) NITRITE (test code = Negative Negative 7691794160) LEUK NICHOLE (test code Trace Negative A = 1682108919) RBC/HPF (test code = See_Comment [Autom ated 9961946947) message] The system which generated this result transmit gulshan reference range : 0 - 3 HPF. The reference range was not used to interpret this result as normal/abnormal . WBC/HPF (test code = See_Comment [Autom ated 6279725726) message] The system which generated this result transmit gulshan reference range : 0 - 5 HPF. The reference range was not used to interpret this result as normal/abnormal . BACTERIA (test code = Few Negative A 7163692726) AMORPHOUS (test code Few Rare HPF A = 2801127662) SQ EPITH (test code = HPF 5675116337) Lab Interpretation Abnormal (test code = 03035-4) [facility] (ID NOW RAPID TESTING)2020-03-26 04:39:00 Test Item Value Reference Range Interpretation Comments SARS-CoV-2 Rapid ID NOW Not Detected Not Detected (test code = 35395-9) KIM (test code = KIM) ID NOW COVID-19 Assay is an isothermal nucleic acid amplification test intended for the qualitative detection of nucleic acid from SARS-CoV-2 viral RNA in nasopharyngeal ([address]) specimens. It is used under Emergency Use [...] indicated. Lab Interpretation Normal (test code = 63867-6) [facility] HospitalComplete Metabolic [id number] 04:12:00 Test Item Value Reference Range Interpretation Comments NA (test code = 139 mmol/L 135-145 6913147823) K (test code = 4.5 mmol/L 3.5-5 5725210694) CL (test code = 108 mmol/L 98-108 8665984022) CO2 TOTAL (test code = 22 mmol/L 23-31 L 6966441098) AGAP (test code = 2-16 9545136202) BUN (test code = 17 mg/dL 7-23 8146009379) GLUCOSE (test code = 102 mg/dL 70-110 8454005399) CREATININE (test code = 0.96 mg/dL 0.5-1.04 8830443035) TOTAL BILI (test code = 0.7 mg/dL 0.1-1.6 7623474688) CALCIUM (test code = 9.3 mg/dL 8.6-10.6 3116222152) T PROTEIN (test code = 7.3 g/dL 6.3-8.2 8736077311) ALBUMIN (test code = 4.1 g/dL 3.5-5 9142265643) ALK PHOS (test code = 675 U/L 34-122 H 5093820202) ALTv (test code = 115 U/L 5-35 H 1742-6) AST(SGOT) (test code = 100 U/L 13-40 H 2968979006) eGFR Calculation mL/min/1.73m2 (Non-) (test code = 9927341584) eGFR Calculation mL/min/1.73m2 () (test code = 2859600026) KIM (test code = KIM) Association of [...] tests). Lab Interpretation Abnormal (test code = 99474-4) [facility], [id number] 04:11:00 Test Item Value Reference Range Interpretation Comments LIPASE (test code = 5169162825) 171 U/L 0-220 Lab Interpretation (test code = Normal 85799-1) [facility] with [id number] 03:56:00 Test Item Value Reference Range Interpretation Comments WBC (test code = See_Comment [Automated 4790-2) message] The sy stem which generated this [...] RDW-SD (test code = 47.5 fL 39-49.9 76546-7) RDW-CV (test code = 13.3 % 12-15.5 788-0) PLT (test code = See_Comment [Automated 777-3) message] The sy stem which generated this result transmitted reference range : 166 - 358 10*3/ ?L. The reference r luca was not used to interpret this result as normal/abnormal . MPV (test code = 9.4 fL 9.5-12.9 L 30569-9) NRBC/100 WBC (test See_Comment [Automat ed code = 2781740382) message] The system which generated this result transmitted reference range : 0.0 - 10.0 /100 WBCs. The refer ence range was not u sed to interpret th is result as normal/abnormal . NRBC x10^3 (test code <0.01 See_Comment [Auto mated = 0639977334) message] The s ystem which generated this result transmitted reference range : 10*3/?L. The reference range was not used to interpret this result as normal/abnormal . GRAN MAT (NEUT) % 67.1 % (test code = 770-8) IMM GRAN % (test code 0.70 % = 6751430335) LYMPH % (test code = 22.2 % 736-9) MONO % (test code = 6.4 % 5905-5) EOS % (test code = 2.9 % 713-8) BASO % (test code = 0.7 % 706-2) GRAN MAT x10^3(ANC) 3.69 10*3/uL 1.88-7.09 (test code = 8035323199) IMM GRAN x10^3 (test 0.04 10*3/uL 0-0.06 code = 4913945758) LYMPH x10^3 (test code 1.22 10*3/uL 1.32-3.29 L = 731-0) MONO x10^3 (test code 0.35 10*3/uL 0.33-0.92 = 742-7) EOS x10^3 (test code = 0.16 10*3/uL 0.03-0.39 711-2) BASO x10^3 (test code 0.04 10*3/uL 0.01-0.07 = 704-7) Lab Interpretation Abnormal (test code = 92993-4) [facility] HospitalMR BRAIN WO [id number] 17:24:06 Impression: 1. ?Normal MRI brain. 2. [...] do not demonstrate any evidence of intracranialhemorrhage. Iamb, Radiant Results Inft User - 02/08/2020 12:25 [...] MRI brain.2. Mastoid effusions.3. Right petrous apex effusion.[facility] CULTURE [id number] 21:10:00 Test Item Value Reference Range Interpretation Comments Blood Culture-Aerobic Culture positive. No growth AA P revious (test code = 34715-3) See Blood Culture p reliminary Workup for verified result additional was Culture In information. Progress on 02/02/2020 at 1901 CDT Blood No organisms No growth Previous Culture-Anaerobic isolated preliminar y (test code = 41391-4) verifi ed result was Culture In Progress on 02/03/2020 at 1314 CDT Lab Interpretation Abnormal (test code = 72030-0) [facility] CULTURE [id number] 21:01:00 Test Item Value Reference Range Interpretation Comments Blood Culture-Aerobic No organisms No growth Previo us (test code = 05994-4) isolated prelim inary verified result was Culture [...] Culture-Anaerobic isolated preliminar y (test code = 27427-7) verifi ed result was Culture In Progress [...] CDT Lab Interpretation Normal (test code = 81214-5) [facility] (NA, K, CL, CO2, GLUCOSE, BUN, CREATININE, CA)2020-02-07 09:09:00 Test Item Value Reference Range Interpretation Comments NA (test code = 136 mmol/L 135-145 9789924370) K (test code = 4.3 mmol/L 3.5-5 Slight hemoly sis 4910563271) CL (test code = 104 mmol/L 98-108 3796031646) CO2 TOTAL (test 26 mmol/L 23-31 code = 3580184328) AGAP (test code = 2-16 4820506148) BUN (test code = 12 mg/dL 7-23 Slight hemo lysis 2718762697) GLUCOSE (test code 98 mg/dL 70-110 = 2655994333) CREATININE (test 0.50 mg/dL 0.5-1.04 code = 4050035676) CALCIUM (test code 8.9 mg/dL 8.6-10.6 = 4012438681) eGFR Calculation mL/min/1.73m2 (Non-) (test code = 4458280440) eGFR Calculation mL/min/1.73m2 () (test code = 5185139592) KIM (test code = Association of KIM) [...] or urine or abnormalities in imaging tests). [facility] WITH [id number] 08:58:00 Test Item Value Reference Range Interpretation [...] RDW-SD (test code = 48.5 fL 39-49.9 50361-8) RDW-CV (test code = 13.9 % 12-15.5 788-0) PLT (test code = See_Comment [Automated 777-3) message] The sy stem which generated this result transmitted reference range : 166 - 358 10*3/ ?L. The reference r luca was not used to interpret this result as normal/abnormal . MPV (test code = 9.1 fL 9.5-12.9 L 56453-5) NRBC/100 WBC (test See_Comment [Automat ed code = 0138549207) message] The system which generated this result transmitted reference range : 0.0 - 10.0 /100 WBCs. The refer ence range was not u sed to interpret th is result as normal/abnormal . NRBC x10^3 (test code <0.01 See_Comment [Auto mated = 6416716787) message] The s ystem which generated this result transmitted reference range : 10*3/?L. The reference range was not used to interpret this result as normal/abnormal . GRAN MAT (NEUT) % 69.8 % (test code = 770-8) IMM GRAN % (test code 0.40 % = 2041744060) LYMPH % (test code = 21.9 % 736-9) MONO % (test code = 6.7 % 5905-5) EOS % (test code = 0.8 % 713-8) BASO % (test code = 0.4 % 706-2) GRAN MAT x10^3(ANC) 3.66 10*3/uL 1.88-7.09 (test code = 1930432861) IMM GRAN x10^3 (test <0.03 0-0.06 code = 7372808531) LYMPH x10^3 (test code 1.15 10*3/uL 1.32-3.29 L = 731-0) MONO x10^3 (test code 0.35 10*3/uL 0.33-0.92 = 742-7) EOS x10^3 (test code = 0.04 10*3/uL 0.03-0.39 711-2) BASO x10^3 (test code <0.03 0.01-0.07 = 704-7) Lab Interpretation Abnormal (test code = 22916-8) [facility] MUSCLE AB,IGG W/[id number] 15:17:00 Test Item Value Reference Range Interpretation Comments F-ACTIN (SMOOTH See_Comment If F-Actin (Smooth Muscle) MUSCLE) AB, Antibody, IgG i s negative, IGG(BEAKER) (test the Smooth Muscle Antibody code = 02008-5) titer by IFA is not performed.REFER ENCE [...] for A IH is strong.Performe d By: [facility] [place] [id number] Director: Praveena Mantilla MD [Automated mess age] The system which ge nerated this result transmit gulshan reference range : 0 - 19 Units. The refe rence range was not used to interpret this result as normal/abnormal . [facility] HospitalMITOCHONDRIAL M2 AB, [id number] 00:28:00 Test Item Value Reference Range Interpretation Comments AMA (test code = See_Comment H REFERENCE I NTERVAL: 66139-4) Mitochondrial ( M2) Antibody, IgG ? ?20.0 [...] does not rule out PBC.Perform ed By: [facility] [place], [place] [address]Yhlgihjtmp Director: Praveena Mantilla MD [Aut omated message] The sy stem which generated this result transmit gulshan reference range : 0.0 - 24.9 Units. The reference range was not used to int erpret this result as normal/abnormal . Lab Interpretation Abnormal (test code = 65314-1) [facility] CULTURE [id number] 17:01:00 Test Item Value Reference Range Interpretation Comments Blood Culture-Aerobic No organisms No growth Previo us (test code = 26428-4) isolated prelim inary verified result was Culture [...] Culture-Anaerobic isolated preliminar y (test code = 06648-1) verifi ed result was Culture In Progress [...] CDT Lab Interpretation Normal (test code = 83382-0) [facility] CULTURE [id number] 14:01:00 Test Item Value Reference Range Interpretation Comments Blood Culture Coagulase negative Addition al Workup (test Staphylococcus work-up perfo rmed code = 600-7) only per reque st. Culture plate(s ) will be saved until this date : - 02/10/20 Gram stain Isolated from aerobic (test code = bottle Gram positive 664-3) cocci [facility]. METABOLIC PANEL (42984)2020-02-05 09:59:00 Test Item Value Reference Range Interpretation Comments NA (test code = 140 mmol/L 135-145 0976795486) K (test code = 3.7 mmol/L 3.5-5 4608062726) CL (test code = 107 mmol/L 98-108 4465622535) CO2 TOTAL (test code = 25 mmol/L 23-31 0443432347) AGAP (test code = 2-16 1764776075) BUN (test code = 11 mg/dL 7-23 7259005219) GLUCOSE (test code = 90 mg/dL 70-110 0688120695) CREATININE (test code = 0.58 mg/dL 0.5-1.04 8887916370) TOTAL BILI (test code = 0.9 mg/dL 0.1-1.0 1006800832) CALCIUM (test code = 8.9 mg/dL 8.6-10.6 4197398092) T PROTEIN (test code = 6.7 g/dL 6.3-8.2 5471368854) ALBUMIN (test code = 3.5 g/dL 3.5-5 4426154105) ALK PHOS (test code = 518 U/L 34-122 H 2164217913) ALTv (test code = 84 U/L 5-35 H 1742-6) AST(SGOT) (test code = 49 U/L 13-40 H 6117554723) eGFR Calculation mL/min/1.73m2 (Non-) (test code = 9142352580) eGFR Calculation mL/min/1.73m2 () (test code = 1402932111) KIM (test code = KIM) Association of [...] tests). Lab Interpretation Abnormal (test code = 10817-8) [facility] WITH [id number] 09:43:00 Test Item Value Reference Range Interpretation [...] RDW-SD (test code = 48.1 fL 39-49.9 81963-7) RDW-CV (test code = 13.4 % 12-15.5 788-0) PLT (test code = See_Comment [Automated 777-3) message] The sy stem which generated this result transmitted reference range : 166 - 358 10*3/ ?L. The reference r luca was not used to interpret this result as normal/abnormal . MPV (test code = 8.7 fL 9.5-12.9 L 59568-6) NRBC/100 WBC (test See_Comment [Automat ed code = 4477681409) message] The system which generated this result transmitted reference range : 0.0 - 10.0 /100 WBCs. The refer ence range was not u sed to interpret th is result as normal/abnormal . NRBC x10^3 (test code <0.01 See_Comment [Auto mated = 5683342797) message] The s ystem which generated this result transmitted reference range : 10*3/?L. The reference range was not used to interpret this result as normal/abnormal . GRAN MAT (NEUT) % 68.3 % (test code = 770-8) IMM GRAN % (test code 0.20 % = 4626059546) LYMPH % (test code = 24.2 % 736-9) MONO % (test code = 5.5 % 5905-5) EOS % (test code = 1.4 % 713-8) BASO % (test code = 0.4 % 706-2) GRAN MAT x10^3(ANC) 3.47 10*3/uL 1.88-7.09 (test code = 6776065236) IMM GRAN x10^3 (test <0.03 0-0.06 code = 7159161662) LYMPH x10^3 (test code 1.23 10*3/uL 1.32-3.29 L = 731-0) MONO x10^3 (test code 0.28 10*3/uL 0.33-0.92 L = 742-7) EOS x10^3 (test code = 0.07 10*3/uL 0.03-0.39 711-2) BASO x10^3 (test code <0.03 0.01-0.07 = 704-7) Lab Interpretation Abnormal (test code = 08754-1) [facility] [id number] 05:59:37 Mild degenerative changes most pronounced at C5-C6 and C6-C7 as above. RL: 460 AFC: [id number] Ordering physician: JESUSITA AGUILLON INDICATION: Neck pain, [...] at C5-C6 and C6-C7 as above.RL: 460AF: [id number] signed by Minal Vaughan MD, PhD at 02/05/2020 12:59 [facility] BranchOCCULT (GUAIAC) [id number] 14:40:00 Test Item Value Reference Range Interpretation Comments Occult (guaiac) Blood (test code = Negative Negative 2335-8) Lab Interpretation (test code = Normal 18848-0) [facility] [id number] 10:32:00 Test Item Value Reference Range Interpretation Comments NT-proBNP (test code 403 pg/mL See_Comment H [Autom ated = 4634942174) message] The system which generated this result transmitted reference range : <=125. The reference range was not used to interpret this result as normal/abnormal . KIM (test code = KIM) Biotin has been reported to cause a negative bias, interpret results relative to patient's use of biotin. Lab Interpretation Abnormal (test code = 42901-9) [facility]. METABOLIC PANEL (33614)2020-02-04 10:24:00 Test Item Value Reference Range Interpretation Comments NA (test code = 138 mmol/L 135-145 1661377747) K (test code = 3.7 mmol/L 3.5-5 9072293673) CL (test code = 106 mmol/L 98-108 9533052067) CO2 TOTAL (test code = 27 mmol/L 23-31 2274186373) AGAP (test code = 2-16 7936671725) BUN (test code = 9 mg/dL 7-23 2638120566) GLUCOSE (test code = 105 mg/dL 70-110 4598436876) CREATININE (test code = 0.59 mg/dL 0.5-1.04 9691498250) TOTAL BILI (test code = 0.9 mg/dL 0.1-1.7 2822519447) CALCIUM (test code = 9.0 mg/dL 8.6-10.6 8587687108) T PROTEIN (test code = 6.4 g/dL 6.3-8.2 5300251306) ALBUMIN (test code = 3.2 g/dL 3.5-5 L 5883886754) ALK PHOS (test code = 486 U/L 34-122 H 6730347094) ALTv (test code = 91 U/L 5-35 H 1742-6) AST(SGOT) (test code = 41 U/L 13-40 H 9813052452) eGFR Calculation mL/min/1.73m2 (Non-) (test code = 7172797130) eGFR Calculation mL/min/1.73m2 () (test code = 0201691067) KIM (test code = KIM) Association of [...] tests). Lab Interpretation Abnormal (test code = 07912-0) [facility]MAGN[facility]IUM2020-[facility]-22 10:24:00 Test Item Value Reference Range Interpretation Comments MAGNESIUM (test code = 5431160124) 1.8 mg/dL 1.7-2.4 Lab Interpretation (test code = Normal 95339-3) [facility] HospitalCB with [id number] 10:11:00 Test Item Value Reference Range Interpretation [...] RDW-SD (test code = 47.9 fL 39-49.9 68902-3) RDW-CV (test code = 13.7 % 12-15.5 788-0) PLT (test code = See_Comment [Automated 777-3) message] The sy stem which generated this result transmitted reference range : 166 - 358 10*3/ ?L. The reference r luca was not used to interpret this result as normal/abnormal . MPV (test code = 8.5 fL 9.5-12.9 L 63976-9) NRBC/100 WBC (test See_Comment [Automat ed code = 7036829505) message] The system which generated this result transmitted reference range : 0.0 - 10.0 /100 WBCs. The refer ence range was not u sed to interpret th is result as normal/abnormal . NRBC x10^3 (test code <0.01 See_Comment [Auto mated = 7073002489) message] The s ystem which generated this result transmitted reference range : 10*3/?L. The reference range was not used to interpret this result as normal/abnormal . GRAN MAT (NEUT) % 74.2 % (test code = 770-8) IMM GRAN % (test code 0.40 % = 6265005982) LYMPH % (test code = 16.6 % 736-9) MONO % (test code = 6.8 % 5905-5) EOS % (test code = 1.7 % 713-8) BASO % (test code = 0.3 % 706-2) GRAN MAT x10^3(ANC) 5.60 10*3/uL 1.88-7.09 (test code = 1318009566) IMM GRAN x10^3 (test 0.03 10*3/uL 0-0.06 code = 0137943966) LYMPH x10^3 (test code 1.25 10*3/uL 1.32-3.29 L = 731-0) MONO x10^3 (test code 0.51 10*3/uL 0.33-0.92 = 742-7) EOS x10^3 (test code = 0.13 10*3/uL 0.03-0.39 711-2) BASO x10^3 (test code <0.03 0.01-0.07 = 704-7) Lab Interpretation Abnormal (test code = 62354-3) [facility] HospitalANTI-NUCLEAR ANTIBODY [id number] 19:43:00 Test Item Value Reference Range Interpretation Comments LESLY (test code = Negative Negative 8588909969) KIM (test code = KIM) Cytoplasmic staining reactions observed. Negative - No Anti-Nuclear Antibodies detected by IFA.Positive - LESLY IFA screen performed with a 1:80 dilution in adults and a 1:40 dilution in pediatrics. Any LESLY "Positive" will have titer performed and reported separately. Lab Interpretation (test Normal code = 27556-2) [facility] HospitalCERULOPLASMIN2020-10-21 18:45:00 Test Item Value Reference Range Interpretation Comments CERULO (test code = 7161665725) 55 mg/dL 25-63 Lab Interpretation (test code = Normal 28462-9) [facility] HospitalAMMONIA, [id number] 17:29:00 Test Item Value Reference Range Interpretation Comments AMMONIA (test code = 2189696124) <9 9-33 L Lab Interpretation (test code = Abnormal 01952-0) [facility] HospitalBLOOD CULTURE [id number] 17:07:00 Test Item Value Reference Range Interpretation Comments Blood Culture-Aerobic Culture positive. No growth AA P revious (test code = 64784-7) See Blood Culture p reliminary Workup for verified result additional was Culture In information. Progress on 01/31/2020 at 1701 CDTPreviou s preliminary verified result was No growth a t 24 hours on 02/01/2020 at 1401 CDT Blood No organisms No growth Previous Culture-Anaerobic isolated preliminar y (test code = 33387-2) verifi ed result was Culture In Progress on 01/31/2020 at 1701 CDTPreviou s preliminary verified result was No growth a t 24 hours on 02/01/2020 at 1401 CDT Lab Interpretation Abnormal (test code = 66163-4) [facility] HospitalBLOOD CULTURE [id number] 17:07:00 Test Item Value Reference Range Interpretation [...] positive cocci is no longer being reported. [facility] HospitalCREATINE [id number] 10:44:00 Test Item Value Reference Range Interpretation Comments CK (test code = 4618669340) 21 U/L 33-194 L Lab Interpretation (test code = Abnormal 17869-8) [facility] HospitalN-TERMINAL [id number] 09:34:00 Test Item Value Reference Range Interpretation Comments NT-proBNP (test code 850 pg/mL See_Comment H [Autom ated = 9416727790) message] The system which generated this result transmitted reference range : <=125. The reference range was not used to interpret this result as normal/abnormal . KIM (test code = KIM) Biotin has been reported to cause a negative bias, interpret results relative to patient's use of biotin. Lab Interpretation Abnormal (test code = 23366-7) [facility] HospitalCOMP. METABOLIC PANEL (99172)2020-02-03 09:26:00 Test Item Value Reference Range Interpretation Comments NA (test code = 136 mmol/L 135-145 8207904375) K (test code = 3.6 mmol/L 3.5-5 1414585499) CL (test code = 104 mmol/L 98-108 6324185337) CO2 TOTAL (test code = 28 mmol/L 23-31 6445380033) AGAP (test code = 2-16 7748313944) BUN (test code = 7 mg/dL 7-23 4816230345) GLUCOSE (test code = 138 mg/dL 70-110 H 0680390232) CREATININE (test code = 0.61 mg/dL 0.5-1.04 0389463939) TOTAL BILI (test code = 1.0 mg/dL 0.1-1.1 5001859389) CALCIUM (test code = 9.2 mg/dL 8.6-10.6 3525926010) T PROTEIN (test code = 6.6 g/dL 6.3-8.2 6009348585) ALBUMIN (test code = 3.5 g/dL 3.5-5 5377718608) ALK PHOS (test code = 584 U/L 34-122 H 7788802036) ALTv (test code = 131 U/L 5-35 H 1742-6) AST(SGOT) (test code = 49 U/L 13-40 H 2449106868) eGFR Calculation mL/min/1.73m2 (Non-) (test code = 4803136157) eGFR Calculation mL/min/1.73m2 () (test code = 8688649396) KIM (test code = KIM) Association of [...] tests). Lab Interpretation Abnormal (test code = 77411-7) [facility] HospitalMAGNESIUM2020-10-21 09:26:00 Test Item Value Reference Range Interpretation Comments MAGNESIUM (test code = 9757552424) 1.7 mg/dL 1.7-2.4 Lab Interpretation (test code = Normal 48583-9) [facility] HospitalPHOSPHORUS2020-10-21 09:26:00 Test Item Value Reference Range Interpretation Comments PHOSPHORUS (test code = 4139105947) 4.1 mg/dL 2.5-5 Lab Interpretation (test code = Normal 51597-6) [facility] HospitalURIC [id number] 09:26:00 Test Item Value Reference Range Interpretation Comments URIC ACID (test code = 2981023087) 3.4 mg/dL 2.9-6 Lab Interpretation (test code = Normal 53414-8) [facility] WITH [id number] 08:58:00 Test Item Value Reference Range Interpretation [...] RDW-SD (test code = 47.2 fL 39-49.9 50024-7) RDW-CV (test code = 13.2 % 12-15.5 788-0) PLT (test code = See_Comment [Automated 777-3) message] The sy stem which generated this result transmitted reference range : 166 - 358 10*3/ ?L. The reference r luca was not used to interpret this result as normal/abnormal . MPV (test code = 8.7 fL 9.5-12.9 L 41949-6) NRBC/100 WBC (test See_Comment [Automat ed code = 1656288151) message] The system which generated this result transmitted reference range : 0.0 - 10.0 /100 WBCs. The refer ence range was not u sed to interpret th is result as normal/abnormal . NRBC x10^3 (test code <0.01 See_Comment [Auto mated = 4052135152) message] The s ystem which generated this result transmitted reference range : 10*3/?L. The reference range was not used to interpret this result as normal/abnormal . GRAN MAT (NEUT) % 78.4 % (test code = 770-8) IMM GRAN % (test code 0.50 % = 3953113697) LYMPH % (test code = 12.5 % 736-9) MONO % (test code = 6.1 % 5905-5) EOS % (test code = 2.1 % 713-8) BASO % (test code = 0.4 % 706-2) GRAN MAT x10^3(ANC) 6.43 10*3/uL 1.88-7.09 (test code = 0050833006) IMM GRAN x10^3 (test 0.04 10*3/uL 0-0.06 code = 9049760645) LYMPH x10^3 (test code 1.02 10*3/uL 1.32-3.29 L = 731-0) MONO x10^3 (test code 0.50 10*3/uL 0.33-0.92 = 742-7) EOS x10^3 (test code = 0.17 10*3/uL 0.03-0.39 711-2) BASO x10^3 (test code 0.03 10*3/uL 0.01-0.07 = 704-7) Lab Interpretation Abnormal (test code = 28803-4) [facility] HospitalVALPROIC ACID, [id number] 05:42:00 Test Item Value Reference Range Interpretation Comments Valproic Acid, Free <2.0 4-15 L (test code = 7247676078) KIM (test code = KIM) Toxic Range: ? Greater than 15 ug/mL Test developed and characteristics determined by [facility] Laboratory Services. Lab Interpretation Abnormal (test code = 79388-6) [facility] HospitalHAV ANTIBODY (IGG AND IGM)2020-02-03 04:20:00 Test Item Value Reference Range Interpretation Comments HAV Total (test code Positive = 7486192269) HAVT Semi-Quantitative (test code = 8675941414) KIM (test code = KIM) Indicates past or present infection with HAV or exposure to HAV due to vaccination. [facility] HospitalHEPATITIS B SURFACE [id number] 04:12:00 Test Item Value Reference Range Interpretation Comments HBsAB (test code = Negative 6395733717) HBsAb mIU/mL Semi-Quantitative (test code = 2828280537) KIM (test code = Interpretation: KIM) ?Hepatitis B Surface Antibody ? Negative - Patient is considered to be not immune to infection with HBV. ? ? Positive - Anti-HBs detected at greater than or equal to 12 mIU/mL. ?Patient is considered to be immune to infection with HBV. ? [facility] HospitalHCV [id number] 04:12:00 Test Item Value Reference Range Interpretation Comments HCV Ab (test code = 12772-9) Negative HCV Semi-Quantitative (test code = 99314-6) [facility] HospitalHEPATITIS B SURFACE [id number] 03:55:00 Test Item Value Reference Range Interpretation Comments HBsAg Semi-Quantitative (test code = Negative Negative 5195-3) [facility] HospitalPROCALCITONIN2020-10-21 03:54:00 Test Item Value Reference Range Interpretation Comments Procalcitonin (test 0.05 ng/mL <0.07 code = 1958541583) KIM (test code = KIM) INTERPRETATION OF [...] biotics/default.asp Lab Interpretation Normal (test code = 27722-3) [facility] HospitalGLYCOSYLATED HEMOGLOBIN (A1C)2020-02-02 22:47:00 Test Item Value Reference Range Interpretation Comments HGB A1C (test code = 4.5 % 4-6 4548-4) KIM (test code = KIM) %A1C (NGSP) Interpretation (ADA)4.8-5.6 ? ? Normal or (Non-Diabetic Range)5.7-6.4 ? ? Increased Risk (Pre-Diabetic)>6.5 ?Diabetes Indicated Lab Interpretation Normal (test code = 14865-6) [facility] HospitalVALPROIC ACID, [id number] 22:28:00 Test Item Value Reference Range Interpretation Comments VALPROIC A (test code = <10 50-100 L 1038655149) KIM (test code = KIM) Toxic Range: ?Greater than 100 ug/mL Lab Interpretation (test Abnormal code = 79534-3) [facility] HospitalLIPID PANEL (75606)(TOTAL CHOLESTEROL, TRIGLYCERIDES, HDL)2020-02-02 21:23:00 Test Item Value Reference Range Interpretation Comments CHOL (test code = 343 mg/dL 120-200 H 1203023854) HDL (test code = 87 mg/dL >50 7925392887) HDLC RATIO (test code = See_Comment [Au tomated message] 0339045875) The system Smarp. generated this result transmit gulshan reference range : <=4.5. The refe rence range was not u sed to interpret th is result as normal/abnormal . TRIG (test code = 131 mg/dL 30-170 5801641714) LDL CHOL (test code = 230 mg/dL See_Comment H [Auto mated message] 79712-9) The system Smarp. generated this result transmit gulshan reference range : <=160. The refe rence range was not u sed to interpret th is result as normal/abnormal . VLDL (test code = 26 mg/dL 5-60 8610241599) Lab Interpretation (test Abnormal code = 59694-5) [facility] HospitalPROTHROMBIN TIME / [id number] 21:16:00 Test Item Value Reference Range Interpretation [...] tions. Lab Interpretation (test Normal code = 93978-8) [facility] HospitalCREATINE [id number] 21:15:00 Test Item Value Reference Range Interpretation Comments CK (test code = 4214487377) 37 U/L 33-194 Lab Interpretation (test code = Normal 09843-1) [facility] HospitalLIPASE2020-10-20 12:34:00 Test Item Value Reference Range Interpretation Comments LIPASE (test code = 7870202928) 203 U/L 0-220 Lab Interpretation (test code = Normal 45762-9) [facility] HospitalCOMP. METABOLIC PANEL (00493)2020-02-02 12:34:00 Test Item Value Reference Range Interpretation Comments NA (test code = 135 mmol/L 135-145 4079936729) K (test code = 3.5 mmol/L 3.5-5 4442505008) CL (test code = 103 mmol/L 98-108 3297116977) CO2 TOTAL (test code = 25 mmol/L 23-31 4833326976) AGAP (test code = 2-16 6182754619) BUN (test code = 8 mg/dL 7-23 4718309643) GLUCOSE (test code = 148 mg/dL 70-110 H 9870740835) CREATININE (test code = 0.55 mg/dL 0.5-1.04 7961212344) TOTAL BILI (test code = 1.2 mg/dL 0.1-1.1 H 1353285183) CALCIUM (test code = 9.4 mg/dL 8.6-10.6 1596627693) T PROTEIN (test code = 6.9 g/dL 6.3-8.2 9137215924) ALBUMIN (test code = 3.6 g/dL 3.5-5 1004019238) ALK PHOS (test code = 723 U/L 34-122 H 4529401172) ALTv (test code = 166 U/L 5-35 H 1742-6) AST(SGOT) (test code = 72 U/L 13-40 H 5504944395) eGFR Calculation mL/min/1.73m2 (Non-) (test code = 9078474301) eGFR Calculation mL/min/1.73m2 () (test code = 6209898723) KIM (test code = KIM) Association of [...] tests). Lab Interpretation Abnormal (test code = 78254-2) [facility] HospitalLITHIUM2020-10-20 12:32:00 Test Item Value Reference Range Interpretation Comments [employer] (test code = 0.4 mmol/L 0.6-1.2 L 3411117125) KIM (test code = KIM) Toxic Range: ? Greater than 1.2 mmol/L Lab Interpretation (test Abnormal code = 19858-6) [facility] HospitalPOCT GLUCOSE (AUTOMATED)2020-02-02 11:34:00 Test Item Value Reference Range Interpretation Comments POCT GLU (test code = 2239718623) 138 mg/dL 70-110 H Lab Interpretation (test code = Abnormal 85349-5) [facility] HospitalCOMP. METABOLIC PANEL (74605)2020-02-02 10:51:00 Test Item Value Reference Range Interpretation Comments NA (test code = 129 mmol/L 135-145 L 8788646439) K (test code = 3.0 mmol/L 3.5-5 L 3721295456) CL (test code = 100 mmol/L 98-108 5916854940) CO2 TOTAL (test code = 22 mmol/L 23-31 L 5638438494) AGAP (test code = 2-16 6927685469) BUN (test code = 8 mg/dL 7-23 8841347692) GLUCOSE (test code = 632 mg/dL 70-110 HH 6251968151) CREATININE (test code = 0.54 mg/dL 0.5-1.04 0635810521) TOTAL BILI (test code = 1.0 mg/dL 0.1-1.4 5852700961) CALCIUM (test code = 7.9 mg/dL 8.6-10.6 L 2536275014) T PROTEIN (test code = 5.3 g/dL 6.3-8.2 L 2073044615) ALBUMIN (test code = 2.7 g/dL 3.5-5 L 7917169720) ALK PHOS (test code = 562 U/L 34-122 H 1292109135) ALTv (test code = 138 U/L 5-35 H 1742-6) AST(SGOT) (test code = 61 U/L 13-40 H 3139039090) eGFR Calculation mL/min/1.73m2 (Non-) (test code = 0223313632) eGFR Calculation mL/min/1.73m2 () (test code = 7253449296) KIM (test code = KIM) Association of [...] tests). Lab Interpretation Abnormal (test code = 69873-6) [facility] HospitalLIPASE2020-10-20 10:40:00 Test Item Value Reference Range Interpretation Comments LIPASE (test code = 5646967736) 140 U/L 0-220 Lab Interpretation (test code = Normal 01278-8) [facility] HospitalLITHIUM2020-10-20 10:37:00 Test Item Value Reference Range Interpretation Comments [employer] (test code = 0.5 mmol/L 0.6-1.2 L 6310874793) KIM (test code = KIM) Toxic Range: ? Greater than 1.2 mmol/L Lab Interpretation (test Abnormal code = 54447-7) [facility] WITH [id number] 09:57:00 Test Item Value Reference Range Interpretation [...] RDW-SD (test code = 47.2 fL 39-49.9 65741-4) RDW-CV (test code = 13.1 % 12-15.5 788-0) PLT (test code = See_Comment [Automated 777-3) message] The sy stem which generated this result transmitted reference range : 166 - 358 10*3/ ?L. The reference r luca was not used to interpret this result as normal/abnormal . MPV (test code = 9.7 fL 9.5-12.9 61346-2) NRBC/100 WBC (test See_Comment [Automat ed code = 3439539342) message] The system which generated this result transmitted reference range : 0.0 - 10.0 /100 WBCs. The refer ence range was not u sed to interpret th is result as normal/abnormal . NRBC x10^3 (test code <0.01 See_Comment [Auto mated = 9529935279) message] The s ystem which generated this result transmitted reference range : 10*3/?L. The reference range was not used to interpret this result as normal/abnormal . GRAN MAT (NEUT) % 78.6 % (test code = 770-8) IMM GRAN % (test code 0.50 % = 4602422575) LYMPH % (test code = 13.1 % 736-9) MONO % (test code = 5.5 % 5905-5) EOS % (test code = 2.0 % 713-8) BASO % (test code = 0.3 % 706-2) GRAN MAT x10^3(ANC) 5.18 10*3/uL 1.88-7.09 (test code = 8440828556) IMM GRAN x10^3 (test 0.03 10*3/uL 0-0.06 code = 9487489742) LYMPH x10^3 (test code 0.86 10*3/uL 1.32-3.29 L = 731-0) MONO x10^3 (test code 0.36 10*3/uL 0.33-0.92 = 742-7) EOS x10^3 (test code = 0.13 10*3/uL 0.03-0.39 711-2) BASO x10^3 (test code <0.03 0.01-0.07 = 704-7) Lab Interpretation Abnormal (test code = 63046-7) [facility] HospitalGRAM POSITIVE BLOOD PATHOGENS DNA [id number] 06:56:00 Test Item Value Reference Range Interpretation Comments Coagulase Negative Positive Negative, See A Staphylococcus (test Comment/Narrative code = 62777-0) KIM (test code = KIM) Coagulase negative [...] contact the Antimicrobial Stewardship Program with questions.Pager: ?[phone] Testing included eleven identification and three resistance marker targets. Lab Interpretation Abnormal (test code = 81882-5) [facility] HospitalLAB ONLY COVID [id number] 20:46:00COVID DMT InterpretationInterpretation/Recommendations\\nTests (PCR) for Active Infection [...] test is performed there is approximately a kaz-wd-vclxr chance the patient had been infected and [...] and IgG antibodies, this may be the explanation.[facility] LABORATORY SERVICESCOVID TraaxaqSNWQ-WxA-8 Rapid ID NOW (no units) ? ? Date ? Value ? 01/31/2020 ? Not Detected ? ? ? 08/21/2019 ? Not Detected ? [facility] SERVICESUn[facility] C[facility] VENOUS BLOOD [id number] 19:37:00 Test Item Value Reference Range Interpretation Comments PH (test code = 7.32-7.42 L 3703139364) PCO2 SANDHYA (test code = See_Comment [Auto mated message] 0824521781) The system Smarp. generated this result transmitted ref erence range: 41 - 51 mmHg. The reference r luca was not used to interpret this result as normal/abnor mal. PO2 SANDHYA (test code = See_Comment HH [Autom ated message] 8785834817) The system Smarp. generated this result transmitted ref erence range: 25 - 40 mmHg. The reference r luca was not used to interpret this result as normal/abnor mal. HCO3 SANDHYA (test code = See_Comment L [Auto mated message] 0923589822) The system Smarp. generated this result transmitted ref erence range: 24 - 28 mEq/L. The reference r luca was not used to interpret this result as normal/abnor mal. AC VBE(BEAKER) (test mEq/L code = 2244170813) Lab Interpretation (test Abnormal code = 55795-9) [facility] HospitalUS ABDOMEN [id number] 17:02:17 No sonographic findings to explain patient's [...] kidneys. No appreciable atrophyor cortical thinning. No hydronephrosis.[facility] HospitalUrine [id number] 16:35:00 Test Item Value Reference Range Interpretation Comments URINE CULTURE (test No aerobic growth (< code = 630-4) 1000 CFU/mL) [facility] HospitalDIFF CONSULT [id number] 15:41:00 MATURE LEUKOCYTES WITH REACTIVE LYMPHOCYTES, REACTIVE MONOCYTES AND OCCASIONAL TOXIC NEUTROPHILS. RARE HYPERSEGMENTED NEUTROPHILS. MACROCYTIC ANEMIA WITH POLYCHROMASIA AND POIKILOCYTOSIS INCLUDING BURRCELLS AND TARGET CELLS. THESE CHANGES ARE SUGGESTIVE OF EARLY VITAMIN B12 DEFICIENCY ANEMIA. AMPLE PLATELETS. [facility] HospitalPOCT GLUCOSE (AUTOMATED)2020-02-01 13:06:00 Test Item Value Reference Range Interpretation Comments POCT GLU (test code = 5673050157) 104 mg/dL 70-110 Lab Interpretation (test code = Normal 77375-0) [facility] HospitalCOMP. METABOLIC PANEL (14820)2020-02-01 13:00:00 Test Item Value Reference Range Interpretation Comments NA (test code = 139 mmol/L 135-145 8367400820) K (test code = 4.1 mmol/L 3.5-5 5896417016) CL (test code = 112 mmol/L 98-108 H 6322062341) CO2 TOTAL (test code = 20 mmol/L 23-31 L 5898869529) AGAP (test code = 2-16 9796801353) BUN (test code = 16 mg/dL 7-23 5671986226) GLUCOSE (test code = 99 mg/dL 70-110 3982110068) CREATININE (test code = 0.85 mg/dL 0.5-1.04 4512678335) TOTAL BILI (test code = 1.3 mg/dL 0.1-1.1 H 9270091705) CALCIUM (test code = 8.6 mg/dL 8.6-10.6 6695844433) T PROTEIN (test code = 6.2 g/dL 6.3-8.2 L 0674261539) ALBUMIN (test code = 3.2 g/dL 3.5-5 L 1824129763) ALK PHOS (test code = 646 U/L 34-122 H 0831758058) ALTv (test code = 209 U/L 5-35 H 1742-6) AST(SGOT) (test code = 110 U/L 13-40 H 6578248361) eGFR Calculation mL/min/1.73m2 (Non-) (test code = 2646465385) eGFR Calculation mL/min/1.73m2 () (test code = 4263893428) KIM (test code = KIM) Association of [...] tests). Lab Interpretation Abnormal (test code = 33130-7) [facility] HospitalLIPASE2020-10-19 [facility] Test Item Value Reference Range Interpretation Comments LIPASE (test code = [id number]) 353 U/L 0-220 H Lab Interpretation (test code = Abnormal 77909-2) [facility] Test Item Value Reference Range Interpretation Comments [employer] (test code = 1.0 mmol/L 0.6-1.2 [id number]) KIM (test code = KIM) Toxic Range: ? Greater than 1.2 mmol/L Lab Interpretation (test Normal code = 99151-8) [facility] Vfvspqrahgyu3438-21-59 10:56:00 Test Item Value Reference Range Interpretation [...] RDW-SD (test code = 49.7 fL 39-49.9 99241-5) RDW-CV (test code = 13.2 % 12-15.5 788-0) PLT (test code = See_Comment L [Automated 777-3) message] The sy stem which generated this result transmitted reference range : 166 - 358 10*3/ ?L. The reference r luca was not used to interpret this result as normal/abnormal . MPV (test code = 9.7 fL 9.5-12.9 29396-1) NRBC/100 WBC (test See_Comment [Automat ed code = 3034003174) message] The system which generated this result transmitted reference range : 0.0 - 10.0 /100 WBCs. The refer ence range was not u sed to interpret th is result as normal/abnormal . NRBC x10^3 (test code <0.01 See_Comment [Auto mated = 8421227770) message] The s ystem which generated this result transmitted reference range : 10*3/?L. The reference range was not used to interpret this result as normal/abnormal . GRAN MAT (NEUT) % 79.3 % (test code = 770-8) IMM GRAN % (test code 0.40 % = 2256269306) LYMPH % (test code = 11.4 % 736-9) MONO % (test code = 6.1 % 5905-5) EOS % (test code = 2.6 % 713-8) BASO % (test code = 0.2 % 706-2) GRAN MAT x10^3(ANC) 4.30 10*3/uL 1.88-7.09 (test code = 2212046424) IMM GRAN x10^3 (test <0.03 0-0.06 code = 7846748238) LYMPH x10^3 (test code 0.62 10*3/uL 1.32-3.29 L = 731-0) MONO x10^3 (test code 0.33 10*3/uL 0.33-0.92 = 742-7) EOS x10^3 (test code = 0.14 10*3/uL 0.03-0.39 711-2) BASO x10^3 (test code <0.03 0.01-0.07 = 704-7) Lab Interpretation Abnormal (test code = 08348-2) [facility] - [id number] 09:27:00 Test Item Value Reference Range Interpretation Comments RPR (Qualitative) (test code = Nonreactive Nonreactive 52867-9) Lab Interpretation (test code = Normal 98763-5) [facility]VIT[facility]IN B12, [id number] 06:47:00 Test Item Value Reference Range Interpretation Comments VIT B12 (test code = 257 pg/mL 240-930 7109148909) KIM (test code = KIM) Biotin has been reported to cause a positive bias, interpret results relative to patient's use of biotin. Lab Interpretation (test Normal code = 83390-0) [facility] 06:46:00 Test Item Value Reference Range Interpretation Comments FOLATE SER (test code = 15.7 ng/mL 3-20 Biot in has been 9713487634) reported to cau se a positive bias, interpret resul ts relative to patient's use o f biotin. Lab Interpretation (test Normal code = 33299-6) [facility] HospitalOSMOLALITY [id number] 05:47:00 Test Item Value Reference Range Interpretation Comments OSMOLALITY (test code = See_Comment [Au tomated message] 8925062328) The system [employer]. generated this result transmitted ref erence range: 278 - 30 5 mOsm/kg. The re ference range was not u sed to interpret this result as normal/abnor mal. Lab Interpretation (test Normal code = 56667-0) [facility] HospitalFERRITIN [id number] 01:01:00 Test Item Value Reference Range Interpretation Comments FERRITIN (test code = 234.0 ng/mL 11-264 9465783088) KIM (test code = KIM) Biotin has been reported to cause a negative bias, interpret results relative to patient's use of biotin. Lab Interpretation (test Normal code = 62967-6) [facility] HospitalTHYROID STIMULATING [id number] 23:14:00 Test Item Value Reference Range Interpretation Comments TSH (test code = See_Comment Biotin has been 4158679636) reported to cau se a negative bias, interpret resul ts relative to pat ient's use of biotin. [Automated mess age] The system [employer]. generated this result transmitted ref erence range: 0.45 - 4 .70 mIU/L. The refe rence range was not u sed to interpret this result as normal/abnor mal. Lab Interpretation (test Normal code = 75146-6) [facility] HospitalIRON [id number] 22:39:00 Test Item Value Reference Range Interpretation Comments IRON (test code = 68 ug/dL 50-160 Slight hem olysis 6723591843) TIBC (test code = 271 ug/dL 250-410 6940405663) % FE SAT (test code = 25 % 20-50 3456773471) Lab Interpretation (test Normal code = 17037-0) [facility] HospitalRETICULOCYTES [id number] 21:52:00 Test Item Value Reference Range Interpretation Comments RETIC Count Automated 2.17 % 0.51-1.9 H (test code = 9094099236) RETIC Absolute Count See_Comment [Autom ated message] (test code = 3332022295) The system which generated this result transmitted ref erence range: 0.0230 - 0.0950 10*6/?L. The reference range was not used to int erpret this result as normal/abnormal . IRF % (test code = 9.20 % 2.1-12.6 2671040406) RETIC-HE (test code = 35.1 pg 28.1-35.8 0361686293) Lab Interpretation (test Abnormal code = 97567-0) [facility] HospitalABG+COOX+NA+K+GLU+CA2+2020-01-31 20:41:00 Test Item Value Reference Range Interpretation Comments PH (test code = 2) 7.35-7.45 L PCO2 (test code = See_Comment H [Automate d message] 6296148189) The system [employer]. generated this result transmit gulshan reference range : 35 - 45 mmHg. The reference range was not used to interpret this result as normal/abnormal . PO2 (test code = See_Comment L [Automated message] 7964541264) The system [employer]. generated this result transmit gulshan reference range : 80 - 100 mmHg. The reference range was not used to interpret this result as normal/abnormal . HCO3 (test code = See_Comment L [Automate d message] 4974121183) The system [employer]. generated this result transmit gulshan reference range : 22 - 26 mEq/L. The reference range was not used to interpret this result as normal/abnormal . BE (test code = See_Comment L [Automated message] 9699089179) The system [facility] [employer] [facility] generated this result transmit gulshan reference range : -3.0 - 3.0 mEq/ L. The reference r luca was not used to interpret this result as normal/abnormal . THB (test code = 9.8 g/dL 12-16 L 5927168635) %O2HB (test code = 94.0 % 94-99 1617302689) %COHB ART (test code = 0.0 % 0-1.5 2867027499) %METHB ART (test code = 0.3 % 0.4-1.5 L 7472395434) VOL%O2 ART (test code = 13.0 % 15-23 L 7469329257) NA (test code = 137 mmol/L 135-145 6675016278) K+ (test code = 4.0 mmol/L 3.5-5 5774305129) AC CA IONZ (test code = 5.10 mg/dL 4.5-5.3 2774784469) GLUCOSE (test code = 100 mg/dL 70-110 2366475626) Lab Interpretation Abnormal (test code = 40214-3) [facility] HospitalVALPROIC ACID, [id number] 19:51:00 Test Item Value Reference Range Interpretation Comments VALPROIC A (test code = <10 50-100 L 1213976495) KIM (test code = KIM) Toxic Range: ?Greater than 100 ug/mL Lab Interpretation (test Abnormal code = 36270-0) [facility] HospitalACETAMINOPHEN2020-10-18 19:42:00 Test Item Value Reference Range Interpretation Comments ACETAMINOP (test code = <10.0 10-30 L 0602693145) KIM (test code = KIM) Toxic: Greater than 200 ug/mL @ 4 hour post ingestion or greater than 50 ug/mL @ 12 hour post ingestion Lab Interpretation (test Abnormal code = 30647-1) [facility] HospitalLITHIUM2020-10-18 19:41:00 Test Item Value Reference Range Interpretation Comments [employer] (test code = 1.4 mmol/L 0.6-1.2 H 4534227473) KIM (test code = KIM) Toxic Range: ? Greater than 1.2 mmol/L Lab Interpretation (test Abnormal code = 75317-1) [facility] HospitalSALICYLATE2020-10-18 19:41:00 Test Item Value Reference Range Interpretation Comments SALICYLATE (test code <10 mg/L = 8649501187) KIM (test code = KIM) Therapeutic Range: ? Analgesic and Antipyretic Use ? 20-100 mg/L ? ? Anti-Inflammatory Use ? 100-250 mg/L Toxic Range: ? Greater than 300 mg/L [facility] 1 [id number] 17:46:20Impression: No acute cardiopulmonary disease. RL: ?2601 AFC: ?[id number] Chest, one view History: ?AMS . Altered state of awareness Ordering Physician: ?KIRSTIN RON Findings: The lungs are clear without focal pneumonic consolidation,pleural effusion, or pneumothorax. ?The heart size is normal. ?Themediastinal contours are normal. ?No pulmonary edema. Several scatteredcalcified granulomas noted within both lungs. Iamb, Radiant Results Inft User - 01/31/2020 12:47 PM CDTChest, one viewHistory: AMS . Altered state of awarenessOrdering Physician: KIRSTIN RON Findings: The lungs are clear without focal pneumonic consolidation,pleural effusion, or pneumothorax. The heart size is normal. Themediastinal contours are normal. No pulmonary edema. Several scatteredcalcified granulomas noted within both lungs.IMPRESSIONImpression: No acute cardiopulmonary disease. RL: 2601AFC: [id number] signed by Gatito Saul MD at 01/31/2020 12:46 PMUnBaptist [facility] CenterAbdom 1 [id number] 17:42:04 1. Nonobstructive intestinal bowel gas pattern. RL: ?2601 AFC: ?[id number] CLINICAL INFORMATION: Abdominal pain. Altered state of [...] bowel.IMPRESSION1. Nonobstructive intestinal bowel gas pattern.RL: 2601AFC: [id number] signed by Gatito Saul MD at 01/31/2020 12:42 PM [facility] HospitalETHANOL2020-10-18 17:40:00 Test Item Value Reference Range Interpretation Comments ALCOHOL (test code = <10 mg/dL 5098557177) KIM (test code = KIM) <10 Sazxuhxt24-993 Toxic>100 Depression of [employer]>400 Fatalities Reported [facility] HospitalCREATINE [id number] 17:38:00 Test Item Value Reference Range Interpretation Comments CK (test code = 8451628560) 46 U/L 33-194 Slight hemolysis Lab Interpretation (test code Normal = 00713-2) [facility] HospitalCT Head W/O [id number] 17:05:24 Impression: 1. ?No acute intracranial process. [...] No acute intracranial process.2. Small right mastoid effusion.[facility] / [facility] - DRUG SCREEN [id number] 16:57:00 Test Item Value Reference Range Interpretation Comments BENZO U (test code = Presumptive Negative A 5017125392) Positive SLIM U (test code = Negative Negative 8448406065) AMPHET (test code = Negative Negative 9507786937) THC (test code = Negative Negative 4453549276) METHADONE (test code Negative Negative = 6548889686) Meth U (test code = Negative Negative 0510166000) OPIATES (test code = Negative Negative 1948341384) Cocaine Metabolite Negative Negative (test code = 7173142925) PROPOXY (test code = Negative Negative 1265902747) Tric U (test code = Presumptive Negative A Confirma tion of 7206112558) Positive Presumptive Positive TCA result requires physician order and this will b e sent to referen ce lab. PCP (test code = Negative Negative 8677573979) OXYCOD (test code = Negative Negative 2820221286) KIM (test code = Urine Drug Cutoff [...] testing). Lab Interpretation Abnormal (test code = 82987-0) [facility] HospitalUrinalysis2020-10-18 16:54:00 Test Item Value Reference Range Interpretation Comments APPEARANCE (test code = Hazy Clear A 1063966654) COLOR (test code = Lisa Yellow A 4804690213) PH (test code = 4.8-8.0 7233580107) SP GRAVITY (test code = 1.003-1.030 8445859905) GLU U QUAL (test code = Normal Normal 3327949342) BLOOD (test code = Negative Negative 5325393740) KETONES (test code = Negative Negative 3961403934) PROTEIN (test code = 30 mg/dL Negative A 2887-8) UROBILIN (test code = 4.0 mg/dL Normal A 9760482870) BILIRUBIN (test code = Negative Negative 2062331901) NITRITE (test code = Negative Negative 1676748159) LEUK NICHOLE (test code = 25/uL Negative A 0940728050) RBC/HPF (test code = See_Comment [Autom ated message] 7973627862) The system [employer]. generated this result transmit gulshan reference range : 0 - 3 HPF. The refe rence range was not u sed to interpret th is result as normal/abnormal . WBC/HPF (test code = See_Comment H [Autom ated message] 2060517863) The system [employer]. generated this result transmit gulshan reference range : 0 - 5 HPF. The refe rence range was not u sed to interpret th is result as normal/abnormal . BACTERIA (test code = Few Negative A 7314540950) MUCOUS (test code = Moderate Negative LPF A 4701442466) SQ EPITH (test code = HPF 9630938503) HYAL CAST (test code = See_Comment H [Aut omated message] 1608616796) The system [employer]. generated this result transmit gulshan reference range : <=2 LPF. The refere nce range was not u sed to interpret th is result as normal/abnormal . STELLA BEJARANO (test code = See_Comment H [Au tomated message] 1961431795) The system [employer]. generated this result transmit gulshan reference range : <=1 LPF. The refere nce range was not u sed to interpret th is result as normal/abnormal . Lab Interpretation (test Abnormal code = 61555-6) [facility] HospitalCOVID-19 (ID NOW RAPID TESTING)2020-01-31 16:39:00 Test Item Value Reference Range Interpretation Comments SARS-CoV-2 Rapid ID NOW Not Detected Not Detected (test code = 46883-2) KIM (test code = KIM) ID NOW COVID-19 Assay is an isothermal nucleic acid amplification test intended for the qualitative detection of nucleic acid from SARS-CoV-2 viral RNA in nasopharyngeal ([facility]) specimens. It is used under Emergency Use [...] indicated. Lab Interpretation Normal (test code = 96390-3) [facility] HospitalTroponin [id number] 16:38:00 Test Item Value Reference Range Interpretation Comments TROPONIN I (test <0.012 See_Comment [Automated code = 4539956959) message] The system which generated this result [...] ? Lab Interpretation Normal (test code = 70687-2) [facility] HospitalN-TERMINAL [id number] 16:34:00 Test Item Value Reference Range Interpretation Comments NT-proBNP (test code 283 pg/mL See_Comment H [Autom ated = 9496684327) message] The system which generated this result transmitted reference range : <=125. The reference range was not used to interpret this result as normal/abnormal . KIM (test code = KIM) Biotin has been reported to cause a negative bias, interpret results relative to patient's use of biotin. Lab Interpretation Abnormal (test code = 97325-8) [facility] HospitalBasi Metabolic Panel (NA, K, CL, CO2, GLUCOSE, BUN, CREATININE, CA)2020-01-31 16:26:00 Test Item Value Reference Range Interpretation Comments NA (test code = 134 mmol/L 135-145 L 6803751638) K (test code = 4.9 mmol/L 3.5-5 5051208696) CL (test code = 107 mmol/L 98-108 4519511388) CO2 TOTAL (test code = 19 mmol/L 23-31 L 6751165772) AGAP (test code = 2-16 0650185615) BUN (test code = 30 mg/dL 7-23 H 9464429529) GLUCOSE (test code = 106 mg/dL 70-110 0441934194) CREATININE (test code = 2.21 mg/dL 0.5-1.04 H 6519625203) CALCIUM (test code = 9.5 mg/dL 8.6-10.6 1197928926) eGFR Calculation mL/min/1.73m2 (Non-) (test code = 6750815350) eGFR Calculation mL/min/1.73m2 () (test code = 3114164288) KIM (test code = KIM) Association of [...] tests). Lab Interpretation Abnormal (test code = 36973-4) [facility] HospitalHepatic Function Panel (ALB, T.PRO, BILI T, BU/BC, ALT, AST, ALK PHOS)2020-01-31 16:26:00 Test Item Value Reference Range Interpretation Comments TOTAL BILI (test code = 7158391372) 1.5 mg/dL 0.1-1.1 H BILI UNCON (test code = 6760464681) 0.4 mg/dL 0.1-1.1 BILI CONJ (test code = 1021919532) 0.0 mg/dL 0-0.3 T PROTEIN (test code = 2990347853) 8.0 g/dL 6.3-8.2 ALBUMIN (test code = 9018805867) 4.0 g/dL 3.5-5 ALK PHOS (test code = 2639346257) 714 U/L 34-122 H ALTv (test code = 1742-6) 352 U/L 5-35 H AST(SGOT) (test code = 0022388596) 256 U/L 13-40 H Lab Interpretation (test code = Abnormal 25589-2) [facility] HospitalLipase [id number] 16:26:00 Test Item Value Reference Range Interpretation Comments LIPASE (test code = 6647222629) 410 U/L 0-220 H Lab Interpretation (test code = Abnormal 20021-2) [facility] HospitalAMMONIA, [id number] 16:25:00 Test Item Value Reference Range Interpretation Comments AMMONIA (test code = 32 umol/L 9-33 Slight hemolysis 7914726094) Lab Interpretation (test Normal code = 90722-2) [facility] HospitalCB with [id number] 16:13:00 Test Item Value Reference Range Interpretation [...] (test code = 51.4 fL 39-49.9 H 06426-2) RDW-CV (test code = 13.7 % 12-15.5 788-0) PLT (test code = See_Comment [Automated 777-3) message] The sy stem which generated this result transmitted reference range : 166 - 358 10*3/ ?L. The reference r luca was not used to interpret this result as normal/abnormal . MPV (test code = 10.3 fL 9.5-12.9 54871-0) NRBC/100 WBC (test See_Comment [Automat ed code = 3065712764) message] The system which generated this result transmitted reference range : 0.0 - 10.0 /100 WBCs. The refer ence range was not u sed to interpret th is result as normal/abnormal . NRBC x10^3 (test code <0.01 See_Comment [Auto mated = 4154508397) message] The s ystem which generated this result transmitted reference range : 10*3/?L. The reference range was not used to interpret this result as normal/abnormal . GRAN MAT (NEUT) % 77.1 % (test code = 770-8) IMM GRAN % (test code 0.40 % = 9321843692) LYMPH % (test code = 12.2 % 736-9) MONO % (test code = 5.7 % 5905-5) EOS % (test code = 4.3 % 713-8) BASO % (test code = 0.3 % 706-2) GRAN MAT x10^3(ANC) 5.97 10*3/uL 1.88-7.09 (test code = 7138680335) IMM GRAN x10^3 (test 0.03 10*3/uL 0-0.06 code = 2968988407) LYMPH x10^3 (test code 0.94 10*3/uL 1.32-3.29 L = 731-0) MONO x10^3 (test code 0.44 10*3/uL 0.33-0.92 = 742-7) EOS x10^3 (test code = 0.33 10*3/uL 0.03-0.39 711-2) BASO x10^3 (test code <0.03 0.01-0.07 = 704-7) Lab Interpretation Abnormal (test code = 52487-6) [facility] HospitalLactic Acid Whole [id number] 16:03:00 Test Item Value Reference Range Interpretation Comments LACTIC ACID (test code = 1.03 mmol/L 0.3-2.6 2274686269) Lab Interpretation (test code = Normal 43023-6) [facility] HospitalCT ABDOMEN PELVIS W [id number] 23:00:141. ?Mild circumferential urinary bladder wall thickening [...] the pancreatic duct, unchanged since February2019. Recommend MRI/MRCP.[facility] HospitalTroponin [id number] 21:36:00 Test Item Value Reference Range Interpretation Comments TROPONIN I (test <0.012 See_Comment [Automated code = 3190511899) message] The system which generated this result [...] ? Lab Interpretation Normal (test code = 45677-9) [facility] HospitalUrinalysis2020-09-04 21:30:00 Test Item Value Reference Range Interpretation Comments APPEARANCE (test code = Clear Clear 7729196355) COLOR (test code = Yellow Yellow 0383897119) PH (test code = 4.8-8.0 6138119636) SP GRAVITY (test code = 1.003-1.030 4925038165) GLU U QUAL (test code = Normal Normal 4911444795) BLOOD (test code = Negative Negative 4882541534) KETONES (test code = Negative Negative 1139840637) PROTEIN (test code = Negative Negative 2887-8) UROBILIN (test code = 4.0 mg/dL Normal A 5674148000) BILIRUBIN (test code = Negative Negative 9009658304) NITRITE (test code = Negative Negative 1175247127) LEUK NICHOLE (test code = Negative Negative 0782946035) RBC/HPF (test code = See_Comment [Autom ated message] 2646743116) The system [employer]. generated this result transmit gulshan reference range : 0 - 3 HPF. The refe rence range was not u sed to interpret th is result as normal/abnormal . WBC/HPF (test code = See_Comment [Autom ated message] 0561978601) The system [employer]. generated this result transmit gulshan reference range : 0 - 5 HPF. The refe rence range was not u sed to interpret th is result as normal/abnormal . BACTERIA (test code = Few Negative A 7106469119) MUCOUS (test code = Slight Negative LPF A 8055557736) SQ EPITH (test code = HPF 4234832917) HYAL CAST (test code = See_Comment [Aut omated message] 5788891298) The system [employer]. generated this result transmit gulshan reference range : <=2 LPF. The refere nce range was not u sed to interpret th is result as normal/abnormal . Lab Interpretation (test Abnormal code = 52840-9) [facility] with [id number] 21:29:00 Test Item Value Reference Range Interpretation Comments WBC (test code = See_Comment L [Automated 2290-2) message] The sy stem which [...] (test code = 54.6 fL 39-49.9 H 24042-0) RDW-CV (test code = 14.9 % 12-15.5 788-0) PLT (test code = See_Comment L [Automated 777-3) message] The sy stem which generated this result transmitted reference range : 166 - 358 10*3/ ?L. The reference r luca was not used to interpret this result as normal/abnormal . MPV (test code = 9.5 fL 9.5-12.9 57473-3) IPF % (test code = 1.5 % 1.3-7.7 Platelet count 3681632195) measured by fluorescence method. NRBC/100 WBC (test See_Comment [Automat ed code = 2544138866) message] The system which generated this result transmitted reference range : 0.0 - 10.0 /100 WBCs. The refer ence range was not u sed to interpret th is result as normal/abnormal . NRBC x10^3 (test code <0.01 See_Comment [Auto mated = 1414832913) message] The s ystem which generated this result transmitted reference range : 10*3/?L. The reference range was not used to interpret this result as normal/abnormal . GRAN MAT (NEUT) % 64.0 % (test code = 770-8) IMM GRAN % (test code 1.00 % = 1319843078) LYMPH % (test code = 22.5 % 736-9) MONO % (test code = 11.0 % 5905-5) EOS % (test code = 1.0 % 713-8) BASO % (test code = 0.5 % 706-2) GRAN MAT x10^3(ANC) 2.61 10*3/uL 1.88-7.09 (test code = 5284756545) IMM GRAN x10^3 (test 0.04 10*3/uL 0-0.06 code = 6128210724) LYMPH x10^3 (test code 0.92 10*3/uL 1.32-3.29 L = 731-0) MONO x10^3 (test code 0.45 10*3/uL 0.33-0.92 = 742-7) EOS x10^3 (test code = 0.04 10*3/uL 0.03-0.39 711-2) BASO x10^3 (test code <0.03 0.01-0.07 = 704-7) Lab Interpretation Abnormal (test code = 84283-0) [facility] Metabolic Panel (NA, K, CL, CO2, GLUCOSE, BUN, CREATININE, CA)2019-12-18 21:25:00 Test Item Value Reference Range Interpretation Comments NA (test code = 138 mmol/L 135-145 5152879701) K (test code = 4.8 mmol/L 3.5-5 9848684689) CL (test code = 104 mmol/L 98-108 3179638826) CO2 TOTAL (test code = 27 mmol/L 23-31 1500284870) AGAP (test code = 2-16 0184258200) BUN (test code = 12 mg/dL 7-23 9446864694) GLUCOSE (test code = 101 mg/dL 70-110 3750282200) CREATININE (test code 0.70 mg/dL 0.5-1.04 = 2034093081) CALCIUM (test code = 9.3 mg/dL 8.6-10.6 0930566781) eGFR Calculation mL/min/1.73m2 (Non-) (test code = 9870216727) eGFR Calculation mL/min/1.73m2 () (test code = 0750101651) KIM (test code = KIM) Association of [...] or urine or abnormalities in imaging tests). [facility] HospitalHep[facility] Function [facility] (ALB, T.PRO, BILI T, BU/BC, ALT, AST, ALK PHOS)2019-12-18 21:25:00 Test Item Value Reference Range Interpretation Comments TOTAL BILI (test code = 6254186214) 1.0 mg/dL 0.1-1.1 BILI UNCON (test code = 9494349491) 0.6 mg/dL 0.1-1.1 BILI CONJ (test code = 0932382392) 0.0 mg/dL 0-0.3 T PROTEIN (test code = 4509675112) 7.8 g/dL 6.3-8.2 ALBUMIN (test code = 4980354603) 4.3 g/dL 3.5-5 ALK PHOS (test code = 8151011335) 580 U/L 34-122 H ALTv (test code = 1742-6) 199 U/L 5-35 H AST(SGOT) (test code = 5534675750) 215 U/L 13-40 H Lab Interpretation (test code = Abnormal 52448-6) [facility] HospitalLipase [id number] 21:25:00 Test Item Value Reference Range Interpretation Comments LIPASE (test code = 3466078256) 267 U/L 0-220 H Lab Interpretation (test code = Abnormal 91053-4) [facility] HospitalXR CHEST 1 VW [id number] 02:17:38 No findings suggestive of COVID-19 pneumonia. Disclaimer: Generally, the findings on chest imaging in COVID-19 are notspecific, and overlap with other infections, including influenza, H1N1,SARS and MERS.According to the Centers for Disease Control (CDC) and the [employer], viral testing remains the only [...] Centers for Disease Control (CDC) and the [employer], viral testing remains the only specific method of diagnosiseven if CXR or CT findings are suggestive of COVID-19. Preliminary Report Dictated by Resident: Ritchie Merchant MD., have reviewed this study and agree with the abovereport.[facility] CORONAVIRUS COVID-19 [id number] 02:11:00 Test Item Value Reference Range Interpretation Comments SARS-CoV-2 (test code = Not Detected Not Detected 53509-5) KIM (test code = KIM) ID NOW COVID-19 Assay is an isothermal nucleic acid amplification test intended for the qualitative detection of nucleic acid from SARS-CoV-2 viral RNA in nasopharyngeal ([address]) specimens. It is used under Emergency Use [...] indicated. Lab Interpretation Normal (test code = 88400-8) [facility] HospitalTROPONIN [id number] 01:42:00 Test Item Value Reference Range Interpretation Comments TROPONIN I (test <0.012 See_Comment [Automated code = 0325008088) message] The system which generated this result [...] ? Lab Interpretation Normal (test code = 71162-3) [facility] ([id number])2019-08-22 01:30:00 Test Item Value Reference Range Interpretation Comments NA (test code = 142 mmol/L 135-145 0801317521) K (test code = 4.1 mmol/L 3.5-5 9580224101) CL (test code = 106 mmol/L 98-108 0747473656) CO2 TOTAL (test code = 28 mmol/L 23-31 3203286009) AGAP (test code = 2-16 0854909430) BUN (test code = 16 mg/dL 7-23 5143313291) GLUCOSE (test code = 141 mg/dL 70-110 H 1565933056) CREATININE (test code = 0.75 mg/dL 0.5-1.04 4227129552) TOTAL BILI (test code = 0.8 mg/dL 0.1-1.3 9235935975) CALCIUM (test code = 9.6 mg/dL 8.6-10.6 5983100209) T PROTEIN (test code = 7.8 g/dL 6.3-8.2 6423031737) ALBUMIN (test code = 4.1 g/dL 3.5-5 6707571626) ALK PHOS (test code = 664 U/L 34-122 H 2780926674) ALTv (test code = 82 U/L 5-35 H 1742-6) AST(SGOT) (test code = 111 U/L 13-40 H 5183842906) eGFR Calculation mL/min/1.73m2 (Non-) (test code = 7731170242) eGFR Calculation mL/min/1.73m2 () (test code = 4655565951) KIM (test code = KIM) Association of [...] tests). Lab Interpretation Abnormal (test code = 08842-4) [facility]LIP[facility], [id number] 01:30:00 Test Item Value Reference Range Interpretation Comments LIPASE (test code = 0115658019) 87 U/L 0-220 Lab Interpretation (test code = Normal 61356-0) [facility]aPTT2020-[facility] 01:29:00 Test Item Value Reference Range Interpretation Comments APTT Patient (test See_Comment [Automat ed code = 3173-2) message] The system which generated this result transmitted reference range : 23 - 38 Seconds . The reference range was not used to interpr et this result as normal/abnormal . KIM (test code = KIM) The [facility] patient population mean normal value for aPTT is 30 seconds. Lab Interpretation Normal (test code = 71832-6) [facility] HospitalPROTHROMBIN TIME / [id number] 01:27:00 Test Item Value Reference Range Interpretation [...] tions. Lab Interpretation (test Normal code = 66185-1) [facility]URIN[facility]YSIS2020-[facility]-09 01:25:00 Test Item Value Reference Range Interpretation Comments APPEARANCE (test code = Hazy Clear A 6450974329) COLOR (test code = Lisa Yellow A 3502295764) PH (test code = 4.8-8.0 2546338198) SP GRAVITY (test code = 1.003-1.030 9116355835) GLU U QUAL (test code = Normal Normal 3288356751) BLOOD (test code = Negative Negative 1972555288) KETONES (test code = Negative Negative 2979945972) PROTEIN (test code = 30 mg/dL Negative A 2887-8) UROBILIN (test code = 4.0 mg/dL Normal A 0661813109) BILIRUBIN (test code = Negative Negative 6656017967) NITRITE (test code = Positive Negative A 9919000386) LEUK NICHOLE (test code = 500/uL Negative A 0498759775) RBC/HPF (test code = See_Comment H [Autom ated message] 0119750104) The system [employer]. generated this result transmit gulshan reference range : 0 - 3 HPF. The refe rence range was not u sed to interpret th is result as normal/abnormal . WBC/HPF (test code = See_Comment H [Autom ated message] 6334388128) The system [employer]. generated this result transmit gulshan reference range : 0 - 5 HPF. The refe rence range was not u sed to interpret th is result as normal/abnormal . BACTERIA (test code = Many Negative A 1572025353) MUCOUS (test code = Moderate Negative LPF A 6056238013) SQ EPITH (test code = HPF 1245582466) Lab Interpretation (test Abnormal code = 02202-4) [facility] HospitalCB WITH [id number] 01:18:00 Test Item Value Reference Range Interpretation Comments WBC (test code = See_Comment L [Automated 9990-2) message] The sy stem which generated this [...] RDW-SD (test code = 44.3 fL 39-49.9 48779-4) RDW-CV (test code = 12.6 % 12-15.5 788-0) PLT (test code = See_Comment [Automated 777-3) message] The sy stem which generated this result transmitted reference range : 166 - 358 10*3/ ?L. The reference r luca was not used to interpret this result as normal/abnormal . MPV (test code = 9.1 fL 9.5-12.9 L 02678-4) NRBC/100 WBC (test See_Comment [Automat ed code = 5639606036) message] The system which generated this result transmitted reference range : 0.0 - 10.0 /100 WBCs. The refer ence range was not u sed to interpret th is result as normal/abnormal . NRBC x10^3 (test code <0.01 See_Comment [Auto mated = 7453185061) message] The s ystem which generated this result transmitted reference range : 10*3/?L. The reference range was not used to interpret this result as normal/abnormal . GRAN MAT (NEUT) % 71.0 % (test code = 770-8) IMM GRAN % (test code 1.70 % = 1438872829) LYMPH % (test code = 16.1 % 736-9) MONO % (test code = 9.8 % 5905-5) EOS % (test code = 1.1 % 713-8) BASO % (test code = 0.3 % 706-2) GRAN MAT x10^3(ANC) 2.47 10*3/uL 1.88-7.09 (test code = 9418449201) IMM GRAN x10^3 (test 0.06 10*3/uL 0-0.06 code = 1387659877) LYMPH x10^3 (test code 0.56 10*3/uL 1.32-3.29 L = 731-0) MONO x10^3 (test code 0.34 10*3/uL 0.33-0.92 = 742-7) EOS x10^3 (test code = 0.04 10*3/uL 0.03-0.39 711-2) BASO x10^3 (test code <0.03 0.01-0.07 = 704-7) Lab Interpretation Abnormal (test code = 19577-6) [facility] HospitalTrjuana [id number] 23:39:00 Test Item Value Reference Range Interpretation Comments TROPONIN I (test 0.005 ng/mL See_Comment [Automated code = 5766064156) message] The system which generated this result [...] ? Lab Interpretation Normal (test code = 16341-0) [facility] HospitalBasi Metabolic Panel (NA, K, CL, CO2, GLUCOSE, BUN, CREATININE, CA)2019-06-25 23:27:00 Test Item Value Reference Range Interpretation Comments NA (test code = 138 mmol/L 135-145 6732250058) K (test code = 4.3 mmol/L 3.5-5 3060299837) CL (test code = 103 mmol/L 98-108 1968401166) CO2 TOTAL (test code = 27 mmol/L 23-31 6619915464) AGAP (test code = 2-16 9454121627) BUN (test code = 16 mg/dL 7-23 5202289210) GLUCOSE (test code = 106 mg/dL 70-110 6058753061) CREATININE (test code 0.66 mg/dL 0.5-1.04 = 0464029093) CALCIUM (test code = 9.1 mg/dL 8.6-10.6 7378073394) eGFR Calculation mL/min/1.73m2 (Non-) (test code = 4283887326) eGFR Calculation mL/min/1.73m2 () (test code = 5037644900) KIM (test code = KIM) Association of [...] or urine or abnormalities in imaging tests). [facility] HospitalLipase [id number] 23:27:00 Test Item Value Reference Range Interpretation Comments LIPASE (test code = 4021287671) 55 U/L 0-220 Lab Interpretation (test code = Normal 45390-9) [facility] HospitalHepatic Function Panel (ALB, T.PRO, BILI T, BU/BC, ALT, AST, ALK PHOS)2019-06-25 23:27:00 Test Item Value Reference Range Interpretation Comments TOTAL BILI (test code = 3234269959) 1.0 mg/dL 0.1-1.1 BILI UNCON (test code = 4448797431) 0.2 mg/dL 0.1-1.1 BILI CONJ (test code = 7659800355) 0.0 mg/dL 0-0.3 T PROTEIN (test code = 3392747490) 7.8 g/dL 6.3-8.2 ALBUMIN (test code = 9198403958) 4.3 g/dL 3.5-5 ALK PHOS (test code = 6924022954) 622 U/L 34-122 H ALTv (test code = 1742-6) 126 U/L 5-35 H AST(SGOT) (test code = 2663191360) 180 U/L 13-40 H Lab Interpretation (test code = Abnormal 67191-3) [facility] HospitalCBC WITH [id number] 23:23:00 Test Item Value Reference Range Interpretation Comments WBC (test code = See_Comment L [Automated 4890-2) message] The sy stem which generated this result transmitted reference range : 4.30 - 11.10 10*3/?L. The reference range was not used to interpret this result as normal/abnormal . RBC (test code = See_Comment L [Automated 159-8) message] The sy stem which generated this [...] (test code = 51.3 fL 39-49.9 H 53718-3) RDW-CV (test code = 14.9 % 12-15.5 788-0) PLT (test code = See_Comment [Automated 777-3) message] The sy stem which generated this result transmitted reference range : 166 - 358 10*3/ ?L. The reference r luca was not used to interpret this result as normal/abnormal . MPV (test code = 9.3 fL 9.5-12.9 L 78034-3) NRBC/100 WBC (test See_Comment [Automat ed code = 8536643213) message] The system which generated this result transmitted reference range : 0.0 - 10.0 /100 WBCs. The refer ence range was not u sed to interpret th is result as normal/abnormal . NRBC x10^3 (test code <0.01 See_Comment [Auto mated = 0392725177) message] The s ystem which generated this result transmitted reference range : 10*3/?L. The reference range was not used to interpret this result as normal/abnormal . GRAN MAT (NEUT) % 67.4 % (test code = 770-8) IMM GRAN % (test code 0.60 % = 0906726656) LYMPH % (test code = 20.6 % 736-9) MONO % (test code = 9.4 % 5905-5) EOS % (test code = 1.7 % 713-8) BASO % (test code = 0.3 % 706-2) GRAN MAT x10^3(ANC) 2.43 10*3/uL 1.88-7.09 (test code = 2762635793) IMM GRAN x10^3 (test <0.03 0-0.06 code = 5223425936) LYMPH x10^3 (test code 0.74 10*3/uL 1.32-3.29 L = 731-0) MONO x10^3 (test code 0.34 10*3/uL 0.33-0.92 = 742-7) EOS x10^3 (test code = 0.06 10*3/uL 0.03-0.39 711-2) BASO x10^3 (test code <0.03 0.01-0.07 = 704-7) Lab Interpretation Abnormal (test code = 59862-9) [facility] HospitalURINALYSIS2020-03-12 22:51:00 Test Item Value Reference Range Interpretation Comments APPEARANCE (test code = Clear Clear 1976442374) COLOR (test code = Yellow Yellow 2700561647) PH (test code = 4.8-8.0 7936650913) SP GRAVITY (test code = 1.003-1.030 6268648539) GLU U QUAL (test code = Negative Negative 3414106184) BLOOD (test code = Negative Negative 9984075625) KETONES (test code = Negative Negative 3756829210) PROTEIN (test code = Negative Negative 2887-8) UROBILIN (test code = 1.0 mg/dL See_Comment [Auto mated message] 0225324513) The system [employer]. generated this result transmit gulshan reference range : 0-1.0 mg/dL. Th e reference range was not used to interpret this result as normal/abnormal . BILIRUBIN (test code = Small Negative A 9800077338) NITRITE (test code = Negative Negative 5185456028) LEUK NICHOLE (test code = Negative Negative 8707327312) RBC/HPF (test code = See_Comment [Autom ated message] 1547885375) The system [employer]. generated this result transmit gulshan reference range : 0 - 3 HPF. The refe rence range was not u sed to interpret th is result as normal/abnormal . WBC/HPF (test code = See_Comment [Autom ated message] 6818343950) The system [employer]. generated this result transmit gulshan reference range : 0 - 5 HPF. The refe rence range was not u sed to interpret th is result as normal/abnormal . BACTERIA (test code = Negative Negative 8407908297) Ictotest (test code = Negative 7121942769) Lab Interpretation (test Abnormal code = 78232-1) [facility] HospitalPregnancy Test, [id number] 22:10:00 Test Item Value Reference Range Interpretation Comments PREG SERUM (test code Negative = 8919838384) KIM (test code = KIM) Less than 10 IU/L. ?If low titer or ectopic is suspected, resubmit specimen in 48-72 hours. [facility] WITH [id number] 22:10:00 Test Item Value Reference Range Interpretation [...] RDW-SD (test code = 49.4 fL 39-49.9 11963-0) RDW-CV (test code = 14.6 % 12-15.5 788-0) PLT (test code = See_Comment [Automated 777-3) message] The sy stem which generated this result transmitted reference range : 166 - 358 10*3/ ?L. The reference r luca was not used to interpret this result as normal/abnormal . MPV (test code = 9.1 fL 9.5-12.9 L 07371-0) NRBC/100 WBC (test See_Comment [Automat ed code = 0917835442) message] The system which generated this result transmitted reference range : 0.0 - 10.0 /100 WBCs. The refer ence range was not u sed to interpret th is result as normal/abnormal . NRBC x10^3 (test code <0.01 See_Comment [Auto mated = 9134606615) message] The s ystem which generated this result transmitted reference range : 10*3/?L. The reference range was not used to interpret this result as normal/abnormal . GRAN MAT (NEUT) % 48.3 % (test code = 770-8) IMM GRAN % (test code 0.30 % = 5776013351) LYMPH % (test code = 38.9 % 736-9) MONO % (test code = 9.8 % 5905-5) EOS % (test code = 2.4 % 713-8) BASO % (test code = 0.3 % 706-2) GRAN MAT x10^3(ANC) 1.78 10*3/uL 1.88-7.09 L (test code = 6049601759) IMM GRAN x10^3 (test <0.03 0-0.06 code = 8295367977) LYMPH x10^3 (test code 1.43 10*3/uL 1.32-3.29 = 731-0) MONO x10^3 (test code 0.36 10*3/uL 0.33-0.92 = 742-7) EOS x10^3 (test code = 0.09 10*3/uL 0.03-0.39 711-2) BASO x10^3 (test code <0.03 0.01-0.07 = 704-7) Lab Interpretation Abnormal (test code = 73599-4) [facility] HospitalUrinalysis2020-03-06 20:58:00 Test Item Value Reference Range Interpretation Comments APPEARANCE (test code = Hazy Clear A 8206735014) COLOR (test code = Yellow Yellow 2401842438) PH (test code = 4.8-8.0 8885945995) SP GRAVITY (test code = 1.003-1.030 0271465247) GLU U QUAL (test code = Normal Normal 3328541642) BLOOD (test code = Negative Negative 3261016460) KETONES (test code = Negative Negative 0356935647) PROTEIN (test code = Negative Negative 2887-8) UROBILIN (test code = 4.0 mg/dL Normal A 6322888561) BILIRUBIN (test code = Negative Negative 1976874999) NITRITE (test code = Negative Negative 1670528460) LEUK NICHOLE (test code = Negative Negative 9548219502) RBC/HPF (test code = See_Comment [Autom ated message] 8078693252) The system [employer]. generated this result transmit gulshan reference range : 0 - 3 HPF. The refe rence range was not u sed to interpret th is result as normal/abnormal . WBC/HPF (test code = See_Comment [Autom ated message] 0053261607) The system [employer]. generated this result transmit gulshan reference range : 0 - 5 HPF. The refe rence range was not u sed to interpret th is result as normal/abnormal . BACTERIA (test code = Many Negative A 9382294017) MUCOUS (test code = Slight Negative LPF A 4502467698) SQ EPITH (test code = HPF 8401016583) HYAL CAST (test code = See_Comment [Aut omated message] 9359748425) The system [employer]. generated this result transmit gulshan reference range : <=2 LPF. The refere nce range was not u sed to interpret th is result as normal/abnormal . Lab Interpretation (test Abnormal code = 56241-6) [facility] (NA, K, CL, CO2, GLUCOSE, BUN, CREATININE, CA)2019-06-19 20:51:00 Test Item Value Reference Range Interpretation Comments NA (test code = 141 mmol/L 135-145 5628060831) K (test code = 4.5 mmol/L 3.5-5 9173093977) CL (test code = 107 mmol/L 98-108 8581351456) CO2 TOTAL (test code = 25 mmol/L 23-31 7408320671) AGAP (test code = 2-16 9301108741) BUN (test code = 16 mg/dL 7-23 8727888704) GLUCOSE (test code = 89 mg/dL 70-110 7709350752) CREATININE (test code 0.50 mg/dL 0.5-1.04 = 1531138626) CALCIUM (test code = 9.0 mg/dL 8.6-10.6 9318080864) eGFR Calculation mL/min/1.73m2 (Non-) (test code = 8910408231) eGFR Calculation mL/min/1.73m2 () (test code = 9875853075) KIM (test code = KIM) Association of [...] or urine or abnormalities in imaging tests). [facility] HospitalHep[facility] Function Panel (ALB, T.PRO, BILI T, BU/BC, ALT, AST, ALK PHOS)2019-06-19 20:51:00 Test Item Value Reference Range Interpretation Comments TOTAL BILI (test code = 0053496201) 0.9 mg/dL 0.1-1.1 BILI UNCON (test code = 1787569772) 0.5 mg/dL 0.1-1.1 BILI CONJ (test code = 2235641028) 0.0 mg/dL 0-0.3 T PROTEIN (test code = 4276594997) 8.0 g/dL 6.3-8.2 ALBUMIN (test code = 9165372719) 4.3 g/dL 3.5-5 ALK PHOS (test code = 2002839273) 613 U/L 34-122 H ALTv (test code = 1742-6) 115 U/L 5-35 H AST(SGOT) (test code = 7438328881) 157 U/L 13-40 H Lab Interpretation (test code = Abnormal 88844-2) [facility] HospitalLipase [id number] 20:51:00 Test Item Value Reference Range Interpretation Comments LIPASE (test code = 4280737511) 89 U/L 0-220 Lab Interpretation (test code = Normal 81436-1) [facility] HospitalCT ABDOMEN PELVIS W [id number] 03:36:50 No acute intra-abdominal abnormality. Hepatosplenomegaly with [...] reviewed this study and agree withthe above report.[facility] HospitalComplete Metabolic [id number] 01:38:00 Test Item Value Reference Range Interpretation Comments NA (test code = 141 mmol/L 135-145 9069464401) K (test code = 4.0 mmol/L 3.5-5 4158068871) CL (test code = 105 mmol/L 98-108 2709189385) CO2 TOTAL (test code = 24 mmol/L 23-31 9577794829) AGAP (test code = 2-16 2867781593) BUN (test code = 23 mg/dL 7-23 5078166452) GLUCOSE (test code = 110 mg/dL 70-110 9292141975) CREATININE (test code = 0.68 mg/dL 0.5-1.04 4901864104) TOTAL BILI (test code = 1.0 mg/dL 0.1-1.0 4237072332) CALCIUM (test code = 9.4 mg/dL 8.6-10.6 9616571891) T PROTEIN (test code = 8.1 g/dL 6.3-8.2 3524006829) ALBUMIN (test code = 4.7 g/dL 3.5-5 3576948005) ALK PHOS (test code = 575 U/L 34-122 H 7303213228) ALTv (test code = 112 U/L 5-35 H 1742-6) AST(SGOT) (test code = 112 U/L 13-40 H 9021614796) eGFR Calculation mL/min/1.73m2 (Non-) (test code = 5259912345) eGFR Calculation mL/min/1.73m2 () (test code = 2144360466) KIM (test code = KIM) Association of [...] tests). Lab Interpretation Abnormal (test code = 73251-4) [facility] HospitalLipase, [id number] 01:38:00 Test Item Value Reference Range Interpretation Comments LIPASE (test code = 9409480533) 65 U/L 0-220 Lab Interpretation (test code = Normal 28246-2) [facility] HospitalUrinalysis2020-02-05 01:30:00 Test Item Value Reference Range Interpretation Comments APPEARANCE (test code = Clear Clear 3940095255) COLOR (test code = Lisa Yellow A 3367308065) PH (test code = 4.8-8.0 2052437018) SP GRAVITY (test code = 1.003-1.030 2921988706) GLU U QUAL (test code = Normal Normal 9451795742) BLOOD (test code = Negative Negative 3698778824) KETONES (test code = Negative Negative 5442826763) PROTEIN (test code = Negative Negative 2887-8) UROBILIN (test code = 2.0 mg/dL Normal A 6674928173) BILIRUBIN (test code = Negative Negative 5383263781) NITRITE (test code = Negative Negative 2393722025) LEUK NICHOLE (test code = Negative Negative 5350780661) RBC/HPF (test code = See_Comment H [Autom ated message] 0143054673) The system [employer]. generated this result transmit gulshan reference range : 0 - 3 HPF. The refe rence range was not u sed to interpret th is result as normal/abnormal . WBC/HPF (test code = See_Comment [Autom ated message] 2575195222) The system [employer]. generated this result transmit gulshan reference range : 0 - 5 HPF. The refe rence range was not u sed to interpret th is result as normal/abnormal . BACTERIA (test code = Few Negative A 5862523258) MUCOUS (test code = Slight Negative LPF A 2128228586) SQ EPITH (test code = HPF 3648256347) Lab Interpretation (test Abnormal code = 87806-5) [facility] WITH [id number] 01:24:00 Test Item Value Reference Range Interpretation [...] RDW-SD (test code = 49.0 fL 39-49.9 15896-0) RDW-CV (test code = 14.3 % 12-15.5 788-0) PLT (test code = See_Comment [Automated 777-3) message] The sy stem which generated this result transmitted reference range : 166 - 358 10*3/ ?L. The reference r luca was not used to interpret this result as normal/abnormal . MPV (test code = 10.2 fL 9.5-12.9 94623-2) NRBC/100 WBC (test See_Comment [Automat ed code = 3656872761) message] The system which generated this result transmitted reference range : 0.0 - 10.0 /100 WBCs. The refer ence range was not u sed to interpret th is result as normal/abnormal . NRBC x10^3 (test code <0.01 See_Comment [Auto mated = 0211728147) message] The s ystem which generated this result transmitted reference range : 10*3/?L. The reference range was not used to interpret this result as normal/abnormal . GRAN MAT (NEUT) % 65.5 % (test code = 770-8) IMM GRAN % (test code 0.50 % = 5301215641) LYMPH % (test code = 24.7 % 736-9) MONO % (test code = 8.6 % 5905-5) EOS % (test code = 0.5 % 713-8) BASO % (test code = 0.2 % 706-2) GRAN MAT x10^3(ANC) 4.37 10*3/uL 1.88-7.09 (test code = 5414820951) IMM GRAN x10^3 (test 0.03 10*3/uL 0-0.06 code = 4636760109) LYMPH x10^3 (test code 1.64 10*3/uL 1.32-3.29 = 731-0) MONO x10^3 (test code 0.57 10*3/uL 0.33-0.92 = 742-7) EOS x10^3 (test code = 0.03 10*3/uL 0.03-0.39 711-2) BASO x10^3 (test code <0.03 0.01-0.07 = 704-7) Lab Interpretation Abnormal (test code = 13696-6) [facility] HospitalCT ANKLE RIGHT WO [id number] 16:39:33 Distal tibial spiral fracture with entrance [...] the anterolateral tibialplafond without tibial plafond articular incongruity.[facility] HospitalXR TIBIA FIBULA 2 VW [id number] 20:06:10 Comminuted mildly displaced distal tibia fracture [...] to the tibialplafond.Nondisplaced proximal fibular shaft fracture. [facility] HospitalXR FOOT 3+ VW [id number] 20:06:10 Comminuted mildly displaced distal tibia fracture [...] extending to the tibialplafond.Nondisplaced proximal fibular shaft fracture.[facility] HospitalURINE [id number] 21:51:00 Test Item Value Reference Range Interpretation Comments URINE CULTURE (test 10,000 - 100,000 CFU/mL code = 630-4) mixed aerobic organisms - suggests endogenous microbial contamination [facility] HospitalHELICOBACTER PYLORI AB, [id number] 14:31:00 Test Item Value Reference Range Interpretation Comments Helicobacter pylori IgG Negative Negative Antibody (test code = 8638281090) KIM (test code = KIM) Negative - No H. pylori IgG antibody detected.Positive - Indicates presence of detectable IgG antibodies. Does not distinguish between past or current infection, or between active infection and colonization.Invalid - A second sample should be sent. Lab Interpretation (test Normal code = 48323-5) [facility] (NA, K, CL, CO2, GLUCOSE, BUN, CREATININE, CA)2018-11-16 10:15:00 Test Item Value Reference Range Interpretation Comments NA (test code = 140 mmol/L 135-145 6482115373) K (test code = 3.9 mmol/L 3.5-5 3966850600) CL (test code = 105 mmol/L 98-108 7902854625) CO2 TOTAL (test code = 30 mmol/L 23-31 1342409557) AGAP (test code = 2-16 3701769148) BUN (test code = 16 mg/dL 7-23 0065261907) GLUCOSE (test code = 104 mg/dL 70-110 3191193430) CREATININE (test code 0.52 mg/dL 0.5-1.04 = 3924695901) CALCIUM (test code = 8.6 mg/dL 8.6-10.6 6905983353) eGFR Calculation mL/min/1.73m2 (Non-) (test code = 0209931060) eGFR Calculation mL/min/1.73m2 () (test code = 0986375851) KIM (test code = KIM) Association of [...] or urine or abnormalities in imaging tests). [facility] WITH [id number] 09:47:00 Test Item Value Reference Range Interpretation [...] RDW-SD (test code = 47.8 fL 39-49.9 27390-9) RDW-CV (test code = 13.5 % 12-15.5 788-0) PLT (test code = See_Comment [Automated 777-3) message] The sy stem which generated this result transmitted reference range : 166 - 358 10*3/ ?L. The reference r luca was not used to interpret this result as normal/abnormal . MPV (test code = 9.9 fL 9.5-12.9 32859-2) NRBC/100 WBC (test See_Comment [Automat ed code = 9367871051) message] The system which generated this result transmitted reference range : 0.0 - 10.0 /100 WBCs. The refer ence range was not u sed to interpret th is result as normal/abnormal . NRBC x10^3 (test code <0.01 See_Comment [Auto mated = 4610932519) message] The s ystem which generated this result transmitted reference range : 10*3/?L. The reference range was not used to interpret this result as normal/abnormal . GRAN MAT (NEUT) % 56.8 % (test code = 770-8) IMM GRAN % (test code 0.40 % = 2222452525) LYMPH % (test code = 27.2 % 736-9) MONO % (test code = 9.1 % 5905-5) EOS % (test code = 5.8 % 713-8) BASO % (test code = 0.7 % 706-2) GRAN MAT x10^3(ANC) 2.55 10*3/uL 1.88-7.09 (test code = 1136532980) IMM GRAN x10^3 (test <0.03 0-0.06 code = 5471884488) LYMPH x10^3 (test code 1.22 10*3/uL 1.32-3.29 L = 731-0) MONO x10^3 (test code 0.41 10*3/uL 0.33-0.92 = 742-7) EOS x10^3 (test code = 0.26 10*3/uL 0.03-0.39 711-2) BASO x10^3 (test code 0.03 10*3/uL 0.01-0.07 = 704-7) Lab Interpretation Abnormal (test code = 59215-6) [facility]2018-11-16 04:33:00 Test Item Value [...] Indicated Lab Interpretation Normal (test code = 99185-9) [facility] [id number] 02:23:00 Test Item Value Reference Range Interpretation Comments HCV Semi-Quantitative (test code = 92546-8) [facility] [id number] 02:23:00 Test Item Value Reference Range Interpretation Comments HBsAB (test code = Negative [id number]) HBsAb mIU/mL Semi-Quantitative (test code = 0937696439) KIM (test code = Interpretation:?Hepatitis KIM) B Surface Antibody? ? Negative - Patient is considered to be not immune to infection with HBV.? Positive - Anti-HBs detected at greater than or equal to 12 mIU/mL.?Patient is considered to be immune to infection with HBV.? [facility] A VIRUS ANTIBODY [id number] 02:11:00 Test Item Value Reference Range Interpretation Comments HAVM Semi-Quantitative (test code = 15820-3) KIM (test code = HAVAb IgM Interpretative KIM) Information:Reactive greater than or equal to 1.2Biotin has been reported to cause a negative bias, interpret results relative to patient's use of biotin. [facility] B CORE ANTIBODY [id number] 02:11:00 Test Item Value Reference Range Interpretation Comments HBCM Semi-Quantitative (test code = 63983-5) KIM (test code = Biotin has been reported KIM) to cause a negative bias, interpret results relative to patient's use of biotin. [facility] WDNSSUYVQMEY2373-03-18 00:49:22 Test Item Value Reference Range Interpretation Comments ABO & RH (test code O Positive Performe d at [facility] = 20) Laboratory Serv [facility] Blood Bank3 [address] [facility] [address]Jjtw Free: [phone] A No. [id number] [facility] HospitalUrinalysis2019-08-04 00:29:00 Test Item Value Reference Range Interpretation Comments APPEARANCE (test code = Clear Clear 4334073160) COLOR (test code = Yellow Yellow 1262283188) PH (test code = 4.8-8.0 6041483875) SP GRAVITY (test code = 1.003-1.030 H 6297417671) GLU U QUAL (test code = Normal Normal 4015542315) BLOOD (test code = Negative Negative 6216617525) KETONES (test code = Negative Negative 6292290645) PROTEIN (test code = Negative Negative 2887-8) UROBILIN (test code = 4.0 mg/dL Normal A 1303234584) BILIRUBIN (test code = Negative Negative 0120796594) NITRITE (test code = Negative Negative 7949584047) LEUK NICHOLE (test code = Negative Negative 2780427857) RBC/HPF (test code = See_Comment H [Autom ated message] 7815170160) The system Smarp. generated this result transmit gulshan reference range : 0 - 3 HPF. The refe rence range was not u sed to interpret th is result as normal/abnormal . WBC/HPF (test code = See_Comment [Autom ated message] 1203265487) The system Smarp. generated this result transmit gulshan reference range : 0 - 5 HPF. The refe rence range was not u sed to interpret th is result as normal/abnormal . BACTERIA (test code = Negative Negative 0375777493) SQ EPITH (test code = See_Comment [Auto mated message] 9068767615) The system Smarp. generated this result transmit gulshan reference range : <=2 HPF. The refere nce range was not u sed to interpret th is result as normal/abnormal . Lab Interpretation (test Abnormal code = 26668-5) [facility] and Screen - ONCE Tbfvthl4234-25-91 00:15:31 Test Item Value Reference Range Interpretation Comments ABO & RH (test code O POSITIVE Performe d at [facility] = 20) Laboratory Serv [facility] Blood [facility]3 [address] [place] [address]Ptym Free: [phone] A No. [id number] IAT (test code = Negative Performed a t [facility] 1185) Laboratory Serv [facility] Blood [facility]3 [address] [place] [address]Drfe Free: [phone] A No. [id number] [facility] HospitalTROPONIN O5480-03-30 00:04:00 Test Item Value Reference Range Interpretation Comments TROPONIN I (test 0.002 ng/mL See_Comment [Automated code = 8645990909) message] The system which generated this result [...] ? Lab Interpretation Normal (test code = 18008-8) [facility] HospitalLIPID PANEL (88669)(TOTAL CHOLESTEROL, TRIGLYCERIDES, HDL)2018-11-15 23:58:00 Test Item Value Reference Range Interpretation Comments CHOL (test code = 289 mg/dL 120-200 H 0572902892) HDL (test code = 97 mg/dL >50 9975439362) HDLC RATIO (test code = See_Comment [Au tomated message] 7465275266) The system Smarp. generated this result transmit gulshan reference range : <=4.5. The refe rence range was not u sed to interpret th is result as normal/abnormal . TRIG (test code = 52 mg/dL 30-170 4057536998) LDL CHOL (test code = 182 mg/dL See_Comment H [Auto mated message] 88025-3) The system Smarp. generated this result transmit gulshan reference range : <=160. The refe rence range was not u sed to interpret th is result as normal/abnormal . VLDL (test code = 10 mg/dL 5-60 8060964652) Lab Interpretation (test Abnormal code = 52046-9) [facility] HospitalCT ABDOMEN PELVIS W YLKVZFAF6424-06-70 17:09:23 1.?No acute intra-abdominal or pelvic abnormality. [...] No acute intra-abdominal or pelvic abnormality.2. Splenomegaly, unchanged.[facility] HospitalACETAMINOPHEN 2018-11-15 16:52:00 Test Item Value Reference Range Interpretation Comments ACETAMINOP (test code = <10.0 10-30 L 7044620212) KIM (test code = KIM) Toxic: Greater than 200 ug/mL @ 4 hour post ingestion or greater than 50 ug/mL @ 12 hour post ingestion Lab Interpretation (test Abnormal code = 20196-2) [facility] HospitalXR CHEST 1 [id number] 15:23:59 1.?No acute cardiopulmonary abnormality.* * * [...] osseous abnormality is seen.IMPRESSION1. No acute cardiopulmonary abnormality.[facility] HospitalTroponin K8986-96-09 15:19:00 Test Item Value Reference Range Interpretation Comments TROPONIN I (test 0.014 ng/mL See_Comment [Automated code = 2135887136) message] The system which generated this result [...] ? Lab Interpretation Normal (test code = 27878-4) [facility] HospitalN-TERMINAL QIH-FFH1837-66-03 15:16:00 Test Item Value Reference Range Interpretation Comments NT-proBNP (test code 29 pg/mL See_Comment [Autom ated = 7316450518) message] The system which generated this result transmitted reference range : <=125. The reference range was not used to interpret this result as normal/abnormal . KIM (test code = KIM) Biotin has been reported to cause a negative bias, interpret results relative to patient's use of biotin. Lab Interpretation Normal (test code = 47212-6) [facility] HospitalBasi Metabolic Panel (NA, K, CL, CO2, GLUCOSE, BUN, CREATININE, CA)2018-11-15 15:07:00 Test Item Value Reference Range Interpretation Comments NA (test code = 142 mmol/L 135-145 1456064782) K (test code = 5.1 mmol/L 3.5-5 H 5850743580) CL (test code = 107 mmol/L 98-108 3286111520) CO2 TOTAL (test code = 26 mmol/L 23-31 6755080319) AGAP (test code = 2-16 5969080889) BUN (test code = 22 mg/dL 7-23 6722333238) GLUCOSE (test code = 93 mg/dL 70-110 3044716165) CREATININE (test code = 0.47 mg/dL 0.5-1.04 L 4599317105) CALCIUM (test code = 8.9 mg/dL 8.6-10.6 4675000473) eGFR Calculation mL/min/1.73m2 (Non-) (test code = 7495791574) eGFR Calculation mL/min/1.73m2 () (test code = 0714034007) KIM (test code = KIM) Association of [...] tests). Lab Interpretation Abnormal (test code = 78104-3) [facility] HospitalHepatic Function Panel (ALB, T.PRO, BILI T, BU/BC, ALT, AST, ALK PHOS)2018-11-15 15:07:00 Test Item Value Reference Range Interpretation Comments TOTAL BILI (test code = 3296064488) 1.1 mg/dL 0.1-1.1 BILI UNCON (test code = 9779317927) 0.4 mg/dL 0.1-1.1 BILI CONJ (test code = 7503369371) 0.0 mg/dL 0-0.3 T PROTEIN (test code = 4478146407) 8.2 g/dL 6.3-8.2 ALBUMIN (test code = 3336949897) 4.2 g/dL 3.5-5 ALK PHOS (test code = 0282382508) 723 U/L 34-122 H ALT(SGPT) (test code = 1124684778) 196 U/L 9-51 H AST(SGOT) (test code = 3719544966) 194 U/L 13-40 H Lab Interpretation (test code = Abnormal 07902-0) [facility] HospitalLipase Lwpku4703-55-25 15:07:00 Test Item Value Reference Range Interpretation Comments LIPASE (test code = 2733655451) 185 U/L 0-220 Lab Interpretation (test code = Normal 32253-5) [facility] HospitalaPTT2019-08-03 14:58:00 Test Item Value Reference Range Interpretation Comments APTT Patient (test See_Comment [Automat ed code = 3173-2) message] The system which generated this result transmitted reference range : 23 - 38 Seconds . The reference range was not used to interpr et this result as normal/abnormal . KIM (test code = KIM) The [facility] patient population mean normal value for aPTT is 30 seconds. Lab Interpretation Normal (test code = 79891-2) [facility] HospitalProthrombin Time (PT) / BQA5881-41-85 14:55:00 Test Item Value Reference Range Interpretation [...] tions. Lab Interpretation (test Normal code = 31883-1) [facility] HospitalCBC WITH OKMJKAIBAVWE7409-70-59 14:47:00 Test Item Value Reference Range Interpretation [...] RDW-SD (test code = 47.1 fL 39-49.9 94205-4) RDW-CV (test code = 13.4 % 12-15.5 788-0) PLT (test code = See_Comment [Automated 777-3) message] The sy stem which generated this result transmitted reference range : 166 - 358 10*3/ ?L. The reference r luca was not used to interpret this result as normal/abnormal . MPV (test code = 10.0 fL 9.5-12.9 20455-9) NRBC/100 WBC (test See_Comment [Automat ed code = 3186396234) message] The system which generated this result transmitted reference range : 0.0 - 10.0 /100 WBCs. The refer ence range was not u sed to interpret th is result as normal/abnormal . NRBC x10^3 (test code <0.01 See_Comment [Auto mated = 0457343654) message] The s ystem which generated this result transmitted reference range : 10*3/?L. The reference range was not used to interpret this result as normal/abnormal . GRAN MAT (NEUT) % 54.5 % (test code = 770-8) IMM GRAN % (test code 0.40 % = 8482806565) LYMPH % (test code = 26.5 % 736-9) MONO % (test code = 10.5 % 5905-5) EOS % (test code = 7.4 % 713-8) BASO % (test code = 0.7 % 706-2) GRAN MAT x10^3(ANC) 2.43 10*3/uL 1.88-7.09 (test code = 3137129004) IMM GRAN x10^3 (test <0.03 0-0.06 code = 1046769183) LYMPH x10^3 (test code 1.18 10*3/uL 1.32-3.29 L = 731-0) MONO x10^3 (test code 0.47 10*3/uL 0.33-0.92 = 742-7) EOS x10^3 (test code = 0.33 10*3/uL 0.03-0.39 711-2) BASO x10^3 (test code 0.03 10*3/uL 0.01-0.07 = 704-7) Lab Interpretation Abnormal (test code = 02463-2) [facility] HospitalCulture, Rvjoy9262-47-46 15:57:00 Test Item Value Reference Range Interpretation Comments Culture, Urine (test NF code = URC) Culture, Urine (test 10 NSF code = URC1) * This is an EDITED result. * A prior r esult that was reported as final has been changed. Smrpxgrkyt4734-34-00 22:53:00 Test Item Value Reference Range Interpretation [...] = UACAST) CAST LPF Urine Source: Urine Btglmj63865 SURGICAL PATHOLOGY, LEVEL B8921-03-86 14:31:00 [place] [address] Laboratory Printed: 07/09/[address] [place] [address] DAEMPathology Page: 1 Patient: YESSENIA ALEMAN Birthdate: 1960 Age/Sex: 56/F Spec#: [id number]: HERMES SALAZAR Specimen Date: 07/08/17 [...] neutrophils. Pathologist:Kelvin Conway Entered by:07/09/171429 DEMOND PROCEDURES: 61817, 86091/4 Patient: YESSENIA ALEMAN Re07/03/17Loc: T4-A MR#: [id number] CONTINUED ON NEXT PAGE Dis: 07/09/17ta: DIS IN [address] [address] Laboratory Printed: 07/09/17 [facility] DAEMPathology Page: 2 Patient: YESSENIA ALEMAN [id number] (Continued) GROSS DESCRIPTION A. LIVER BIOPSY LEFT [...] DANII SHAHID Entered by: 07/08/17 - 1316 [facility].YGP MICROSCOPIC DESCRIPTION A microscopic examination was performed to arrive at the diagnostic conclusion reported. Signed (Electronically Signed) Kelvin 07/09/17 Patient: YSESENIA ALEMAN Re07/03/17Loc: T4-A MR#: [id number] END OF REPORT Dis: 07/09/17ta: DIS JBWdyowtlzx2227-68-70 05:13:00 Test Item Value Reference Range Interpretation [...] U/L 8-55 H = ALT) Reference Lab Ymbxqpz0331-54-66 04:14:00 Test Item Value Reference Range Interpretation Comments Reference Lab 10 U/mL 0-35 Laurent ECLIA Testing (test code methodolo gyPerformed at: HD = CA199) - [facility] [address] [place], [place] [address]Enf Di aimee: Chico Suero MD, Phone : [phone] Reference Lab Ipkvxyt2322-57-03 16:14:00 Test Item Value Reference Range Interpretation Comments Reference Lab Testing 128.5 Units 0.0-20.0 H Negat kourtney 0.0 - 20.0 (test code = MARLON) Equivocal 20.1 - 24.9 Positive >24.9Mitochondr ial (M2) Antibodies are found in 90-96% ofpatients with primary biliary cirrhosis.Perfo rmed at: BN - [facility] [address] [place], [place] [address]Adn Director: Pj Rider MD, [facility] ne: [phone] Reference Lab Nrjonnd1590-11-94 16:14:00 Test Item Value Reference Range Interpretation [...] based solely onANCA IFA results. The In [facility] ANCA Group Consensusrecomm ends follow up testing of p ositive sera with both ME-3 and MPO-ANCA enzyme immunoassays. A s many as 5% serumsamples are positive only b y EIA. Ref. AM J Clin Qoafoy8276;111: 507-513. Reference Lab <1:20 titer Neg:<1:20 The atypical p ANCA pattern Testing (test has been obser chelita in code = ATANCA) asignificant percentage of patients with u lcerative colitis,primary sclerosing cholangitis and autoimmune hepatitis.Perfo rmed at: BN - [facility] [address] [place], [place] [address]Uqw D irector: Chester ramírez MD, Phone: [phone] Gsgehzmda1225-15-20 05:12:00 Test Item Value Reference Range Interpretation [...] 8-55 H code = ALT) Reference Lab Dilgtwr1456-07-86 22:07:00 Test Item Value Reference Range Interpretation Comments Reference Lab Testing 785 IU/L 39-117 H (test code = ISOALKT) Reference Lab Testing 25 % 14-68 (test code = ISOALKBT) Reference Lab Testing 74 % 18-85 (test code = ISOALKLT) Reference Lab Testing 1 % 0-18 Perfor med at: HD - (test code = ISOALKIT) [facility] [address] [place], [place] [address]Uuu Director: Chico Suero MD, Phone: [phone] [facility] at: BN - [facility] [address] [place], [place] [address]Ywx Di aimee: Chester ramírez MD, Phone: [phone] Gxxibpuof5494-26-88 11:48:00 Test Item Value Reference Range Interpretation [...] code = ALT) 92 U/L 8-55 H Xhxdruexx3039-05-81 06:08:00 Test Item Value Reference Range Interpretation [...] 8.5 mg/dL 7.8-10.44 N code = CA) Qqnradzak9646-12-68 06:06:00 Test Item Value Reference Range Interpretation [...] code = ALT) 129 U/L 8-55 H Nerrfstijl9074-53-72 05:57:00 Test Item Value Reference Range Interpretation [...] code = BASO#) 0.0 thou/uL 0.0-0.2 N Jtplcsnkdex0660-85-69 05:55:00 Test Item Value Reference Range Interpretation [...] 3.0 - 4.0 CRITICAL: > 4.0 Anticoagulant? EFELUlhmwrfwh1914-42-09 05:36:00 Test Item Value Reference Range Interpretation [...] 8.9 mg/dL 7.8-10.44 N code = CA) Xutxnbcyf4300-80-87 05:33:00 Test Item Value Reference Range Interpretation [...] code = ALT) 160 U/L 8-55 H Mlvjgdunlv0958-87-46 05:28:00 Test Item Value Reference Range Interpretation [...] 0.1 thou/uL 0.0-0.2 N Chemistry - Elizabeth Xjeflfd3447-65-46 13:02:00 Test Item Value Reference Range Interpretation [...] hod: Enzyme Linked Fluorescent Immunoassay (Elizabeth)Reference s: [place] 3D Elizabeth Package Inserts - Directions Vasile maria, June,August 02, [employer] ic. Gfrqehonx4905-88-60 05:00:00 Test Item Value Reference Range Interpretation [...] code = ALT) 144 U/L 8-55 H Cvahgookd3754-11-37 04:50:00 Test Item Value Reference Range Interpretation [...] 8.4 mg/dL 7.8-10.44 N code = CA) Hfgljupurt8671-92-04 04:39:00 Test Item Value Reference Range Interpretation [...] code = BASO#) 0.0 thou/uL 0.0-0.2 N Crxxcecld0267-04-74 17:07:00 Test Item Value Reference Range Interpretation Comments Chemistry (test code = IGG) 1032.00 mg/dL 552-1631 N Fvpnjsxtp7407-04-82 17:07:00 Test Item Value Reference Range Interpretation Comments Chemistry (test code = IGM) 215.00 mg/dL 33-293 N Vaifaykidz5446-83-37 00:50:00 Test Item Value Reference Range Interpretation [...] UABLD) Urine Source: Urine Clean CatchChemistry - Auypjkqy0923-43-56 00:25:00 Test Item Value Reference Range Interpretation Comments Chemistry - Specials (test Non-Reactive NonReactive code = THEPAIGM) Chemistry - Specials (test Non-Reactive S/CO NonReactive code = THBSAG) Chemistry - Specials (test Non-Reactive NonReactive code = INTHBCM) Chemistry - Specials (test Non-Reactive NonReactive code = INTHEPC) Syqsqtdzh6525-94-40 22:12:00 Test Item Value Reference Range Interpretation [...] t been validated for u se with the[facility] (ove r 72 years of [...] code 196 U/L 8-55 H = ALT) Wkctenjxj0812-15-81 22:12:00 Test Item Value Reference Range Interpretation Comments Chemistry (test code = LIP) 22 U/L 8-78 N Rhipsgoqvz5027-87-19 21:50:00 Test Item Value Reference Range Interpretation [...] code = BASO#) 0.1 thou/uL 0.0-0.2 N Zmkuakuue5475-97-51 22:49:00 Test Item Value Reference Range Interpretation [...] 78 U/L 8-55 H code = ALT) Socwfadem2432-50-36 22:49:00 Test Item Value Reference Range Interpretation Comments Chemistry (test code = LIP) 12 U/L 8-78 N Crebnrledx3401-28-22 22:24:00 Test Item Value Reference Range Interpretation [...] code = BASO#) 0.0 thou/uL 0.0-0.2 N Fnafcgdiqc0548-55-87 22:00:00 Test Item Value Reference Range Interpretation [...] UABLD) Negative Negative Urine Source: Urine Clean MnuezTphknzvd6605-26-70 09:28:00 Test Item Value Reference Range Interpretation Comments Accuchek (test code = ACU) 99 mg/dL 70-110 N Xsszhougvn0423-54-65 09:14:00 Test Item Value Reference Range Interpretation [...] UABLD) Negative Negative Urine Source: Urine Clean FlfpkRscptisamn7558-78-40 21:28:00 Test Item Value Reference Range Interpretation [...] UABLD) Negative Negative Urine Source: Urine Clean VltkmZbzvdmiyj3194-36-83 21:09:00 Test Item Value Reference Range Interpretation [...] 95 U/L 8-55 H code = ALT) Lbsuiucpa5325-45-52 21:09:00 Test Item Value Reference Range Interpretation Comments Chemistry (test code = LIP) 39 U/L 8-78 N Hnbthppilj0629-88-92 20:49:00 Test Item Value Reference Range Interpretation [...] code = BASO#) 0.0 thou/uL 0.0-0.2 N Jokggnaajd9495-85-78 21:34:00 Test Item Value Reference Range Interpretation [...] NotDetected (test code = PPX) Toxicology [facility] [address] Pro file-V Panel (test code = for Qualitative Drugs MTCUTOFF) ofAbuse assays are for presumptive scr eening testing only. e drug class and detec tion limits are as follows: Drug Class Detection Limit Amphetamine 500 ng/mL*Leeanne turates 200 ng/mLBenzod iazepines 150 ng/mL*Cocai ne 150 [...] held fortwo weeks. Urine Source: Urine Clean MdmfwQzcnyytqut9177-13-35 19:17:00 Test Item Value Reference Range Interpretation [...] = UABLD) Negative Negative Urine Source: Urine VgokitOgufokumh8996-54-52 18:48:00 Test Item Value Reference Range Interpretation [...] code 84 U/L 8-55 H = ALT) Rlelxnohl6822-97-50 18:48:00 Test Item Value Reference Range Interpretation Comments Chemistry (test code = JORGE) 53.0 U/L 25-125 N Pmuxpgrff7864-05-38 18:48:00 Test Item Value Reference Range Interpretation Comments Chemistry (test code = LIP) 10 U/L 8-78 N Dqxcbxlhyy4864-14-87 18:19:00 Test Item Value Reference Range Interpretation [...] = BASO#) 0.1 thou/uL 0.0-0.2 N Culture, Dmmxt8729-35-26 10:22:00 Test Item Value Reference Range Interpretation Comments Culture, Urine (test code = URC) NF N Culture, Urine (test code = URC1) 10 MSF N Gaxvthqur8872-48-53 17:38:00 Test Item Value Reference Range Interpretation Comments Chemistry (test code = PHOS) 2.9 mg/dL 2.3-4.7 N Sweteebup6829-97-59 17:04:00 Test Item Value Reference Range Interpretation [...] H = ALT) Chemistry - BNP, HgbA1c, WARf2788-63-33 17:04:00 Test Item Value Reference Range Interpretation Comments Chemistry - BNP, 4.9 % 4.0-6.0 N Therapeutic goals for glycemic HgbA1c, PTHi (test control ( ADA)Adults:- Goal of code = EHYG8OJ) therapy: Les s than 7.0% HbA1c- Action suggeste d: Greater than 8.0% CbD0sFglrz tric patients:- Toddlers and pr eschoolers: Less than 8.5% (but Greater than 7.5%)- Katelynn ool age (6-12 years): Less th an 8%- Adolescents and young adults (13-19 years): Less than 7.5%Diagnosing diabetes (ADA)- HbA1c: Greater than or equal to 6.5% Values of 5.7 - 6.4% indicate HIGH r isk for developing DiabetesInterna tional Expert Committee Repor t on the Role of the S4GObnxp in the Diagnosis of Di abetes. Diabetes Care 2009July;32(7): 1327-1334ADA, Diagnosis class ification of diabetes carlitos us.Diabetes Care 2010; 33 S uppl 1:S62 Mquvrjefo2480-14-40 16:59:00 Test Item Value Reference Range Interpretation Comments Chemistry (test code = CRP) 1.16 mg/dL = or < 0.5 H What test does the doctor want? C-REACTIVE PROTEIN (CRP)Yywksxjojh4574-28-15 16:53:00 Test Item Value Reference Range Interpretation [...] HPF None Seen Urine Source: Urine Clean EpdieEwqcdlluhp7132-74-06 16:46:00 Test Item Value Reference Range Interpretation [...] code = BASO#) 0.1 thou/uL 0.0-0.2 N Plksefrbpy8831-53-17 21:59:00 Test Item Value Reference Range Interpretation [...] Urine Clean CatchSepsis - Lactic Acid >2 Ktbw6346-88-99 23:59:00 Test Item Value Reference Range Interpretation Comments Sepsis - Lactic Additional Lactate testin g will be Acid >2 Rflx performed in 3 hrs (test code = according to [employer] KWUJJ4F) SepsisProtocol. Oukcnevyz4082-83-44 21:12:00 Test Item Value Reference Range Interpretation Comments Chemistry (test code = JORGE) 59.0 U/L 25-125 N Lmjkkqpwl0786-60-78 20:59:00 Test Item Value Reference Range Interpretation [...] 87 U/L 8-55 H code = ALT) Gramipffm4578-51-91 20:59:00 Test Item Value Reference Range Interpretation Comments Chemistry (test code = LIP) 32 U/L 8-78 N Chemistry - Nvfqomi1966-92-57 20:59:00 Test Item Value Reference Range Interpretation Comments Chemistry - Lactate (test code = 2.1 mmol/L 0.5-2.2 N LACTSEP-T) Pmpitkdvyv5410-30-07 20:43:00 Test Item Value Reference Range Interpretation [...] = UABLD) Negative Negative Urine Source: Urine UcbnauFqmlrwkskm2045-01-92 20:37:00 Test Item Value Reference Range Interpretation [...] N Notes Date/Time Note Provider Source 2017-07-09 [facility] Name: AELC [facility]MANMARIANELA [facility] 13:52:00-00:[address] : 1960, Age: 56, [place]: [place] [address] Unit #: [id number], Status: DIS IN [phone] [facility] #: [id number] Location: T4-A 4404-P Report Dict Dr.: MARIANELA DAMON DO Admission Date: 07/03/17 Report #: [id number] Discharge Date: 07/09/17 CC: Bita Hatfield NP, CHARLES DO Walker, Eric P MD DISCHARGE SUMMARY REPORT DATE OF ADMISSION: 07/03/2017 DATE OF DISCHARGE: 07/09/2017 DISCHARGE DIAGNOSES: 1. Abdominal pain, right upper quadrant, improv ed. 2. Primary biliary cirrhosis. 3. Transaminitis [...] Mild splenomegaly noted. No intra or extrahepatic suha iary dilation. HOSPITAL COURSE: The patien t [...] 300 mg p.o. t.i.d. FOLLOWUP: The patient august ollow up with her primary care provider, [...] Date/Time: 07/09/17 1139 Transcribed Date/Time: 07/09/17 1206 Drum Reel Cutter: FEDERICA 2017-07-08 [facility] Name: YESSENIA BRODY Christopher [facility] 20:38:00-00:[address] : 1960, Age: 56, Sex: JERONIMO Ortega [address] Unit #: [id number], Status: ADM IN [phone] [facility] #: [id number] Location: T4-A 4404-P Report Dict Dr.: Jose Luis Romero MD Admission Date: 07/03/17 Report #: [id number] Discharge Date: CC: Bita Hatfield NP, Christopher [...] I have talked to her gastrologist in [place] last Ed. He states she had stents [...] she will need to follow up with marques linda radiologist in [place]. She has persistent right upper quadrant pain and consider replacing her s tents, although at this time, I do not see if that is necessary for the above noted regions. Reported By: Jose Luis Romero MD Electronically Signed Date/Time: 07/09/17 0751 Dictated Date/Time: 07/08/171826 Transcribed Date/Time: 07/08/171923 Drum Reel Cutter: MARTHA 2017-07-08 [facility] Name: ALEC ALEMAN MARIANELA DAMON [facility] 15:15:00-00:[address] : 1960, Age: 56, [place]: [place] [address] Unit #: [id number], Status: ADM IN [phone] Location: [facility]A [facility] Dict Dr.: MARIANELA DAMON DO Admission Date: 07/03/17 Report #: [id number] Discharge Date: CC: Hospitalist Progress Note - [...] 06:59 06:59 Intake Total 4625 3968 Balance [id number] Result Diagrams: 07/06/17 04:54 07/09/17 04:00 [...] daily, sa line lock IVF - Plan manager social work, out of bed/ambulate, DVT proph w/SCDs Stable overall -: Continue supportive measures -: Saline lock IVF -: D/C Levaquin -: Await liver bx * AM lab: CMP * Likely home in am <Electronically signed by Marianela Damon DO> 1143 2017-07-07 [facility] Name: ALEC ALEMAN Luis Hodges STLSJH 20:12:00-00:[address] : 1960, Age: 56, Sex: JERONIMO Ortega [address] Unit #: [id number], Status: DIS IN [phone] [facility] Report Dict Dr.: Luis Hodges MD Admission Date: 07/03/17 Report #: [id number] Discharge Date: 07/09/17 CC: Bita Hatfield NP, [...] been previously seen by an interventional in [facility] repeated biliary stents and symptom relief [...] Electronically Signed Date/Time: 08/21/17 0905 Dictated Date/Time: 07/07/178 Transcribed Date/Time: 07/07/172011 Drum Reel Cutter: OREN 2017-07-07 [facility] Name: ALEC ALEAMN MARIANELA DAMON STLSJH 17:14:00-00:[address] [facility] 1960, Age: 56, Sex: F JERONIMO Hoffmann [address] Unit #: [id number], Status: ADM IN [phone] [facility] Report Dict Dr.: MARIANELA DAMON DO Admission Date: 07/03/17 Report #: [id number] Discharge Date: CC: Hospitalist Progress Note - [...] Stable, continue Cozaar 100mg daily - Plan manager social work, 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 <Electronically signed by Marianela Damon DO> 1737 2017-07-06 [facility] Name: ALEC ALEMAN Luis Hodges LSJH 17:31:00-00:[address] : 1960, Age: 56, Sex: JERONIMO Ortega [address] Unit #: [id number], Status: DIS IN [phone] Location: [address] Report [address].: Luis Hodges MD Admission Date: 07/03/17 Report #: [id number] Discharge Date: 07/09/17 CC: Btia Hatfield NP, Joshua MD Walker, Eric P MD PROGRESS NOTE DATE OF SERVICE: 07/06/2017 [...] at the location of the xiphoid process; wilfredo jean, does not endorse any sensation of the [...] seen by Dr. Ana María Penny in [place] with multiple ERCPs performed and multiple stents [...] Date/Time: 07/06/17 1650 Transcribed Date/Time: 07/06/17 1731 Drum Reel Cutter: [email or web address] 2017-07-06 [facility] Name: ALEC ALEMAN Eh Whitaker [facility] 13:44:00-00:00 [facility] [address] : 1960, Age: 56, Sex: JERONIMO Ortega [address] Unit #: [id number], Status: ADM IN [phone] Location: T4-A 4404-P Report Dict Dr.: Eh Henderson MD Admission Date: 07/03/17 Report #: [id number] Discharge Date: CC: Hospitalist Progress Note - [...] of care to her ERCP specialist in [place]. (2) Abdominal pain Code(s): R10.9 - UNSPECIFIED [...] cont current plan of care, P T/OT, manager social work, incentive spirometry, out of bed/ambulate, DVT proph [...] 08: 13 Medications: Current Medications Hydrocodone Bitart/Acetaminophen (Cumming 5/325) 1 tab PO Q4H PRN PRN Reason: Moderate Pain (4-6) Last Admin: 07/06/17 01:28 Dose: 1 tab Diazepam (Valium) 5 mg PO BID [facility] Last Admin: 07/06/17 08:13 Dose: 5 mg Enoxaparin Sodium (Lovenox) 40 mg SC 0900 [facility] Stop: 07/07/17 11:00 Last Admin: 07/06/17 08:16 Dose: 40 mg Famotidine (Pepcid) 20 mg SLOW IVP Q12HR [facility] Last Admin: 07/06/17 09:46 Dose: 20 mg Levofloxacin 500 mg/ Device 100 mls @ 100 mls/hr IVPB Q24HR [facility] Last Admin: 07/05/17 15:30 Dose: 100 mls Sodium Chloride (Normal Saline 0.9%) 1,000 mls @ 125 mls/hr IV .Q8H [facility] Last Admin: 07/06/17 09:42 Dose: 1,000 mls Losartan Potassium (Cozaar) 100 mg PO DAILY [facility] Last Admin: 07/06/17 08:11 Dose: 100 mg Morphine Sulfate (Morphine) 4 mg SLOW IVP Q4H ME N PRN Reason: Pain Last Admin: 07/06/17 12:45 Dose: 4 mg Ondansetron HCl (Zofran) 4 mg IVP Q6H PRN PRN Reason: Nausea/Vomiting Last Admin: 07/06/17 08:13 Dose: 4 mg Ondansetron HCl (Zofran Odt) 4 mg PO Q6H PRN PRN Reason: Nausea/Vomiting Last Admin: 07/05/17 20:16 Dose: 4 mg Oxycodone/Acetaminophen (Percocet 5/325) 1 tab P O BID [facility] Last Admin: 07/06/17 09:45 Dose: 1 tab Buprenorphine [ (Butrans] 1 Patch) 0 each TOP Q7 D [facility] Promethazine HCl (Phenergan) 50 mg PO Q4H PRN PRN Reason: Nausea Last Admin: 07/06/17 01:27 Dose: 50 mg Quetiapine Fumarate (Seroquel Xr) 150 mg PO QPM [facility] Last Admin: 07/05/17 20:15 Dose: 150 mg Sodium Chloride (Flush - Normal Saline) 10 ml IV F Q12HR [facility] Last Admin: 07/06/17 08:17 Dose: 10 ml Sodium Chloride (Flush - Normal Saline) 10 ml IV F PRN PRN PRN Reason: Saline Flush Tizanidine HCl (Zanaflex) 4 mg PO BID [facility] Last Admin: 07/06/17 08:11 Dose: 4 mg Ursodiol (Actigal) 300 mg PO TID-WM [facility] Last Admin: 07/06/17 12:06 Dose: 300 mg <Electronically signed by Eh Henderson MD> 07/06 1346 2017-07-06 [facility] Name: YESSENIA BRODY Christopher [facility] 00:31:00-00:[address] : 1960, Age: 56, Sex: JERONIMO Ortega [address] Unit #: [id number], Status: ADM IN [phone] Location: [address] Report D[address] Dr.: Jose Luis Romero MD Admission Date: 07/03/17 Report #: [id number] Discharge Date: CC: Bita Hatfield NP, Christopher J MD Walker, Eric P MD PROGRESS NOTE DATE OF SERVICE: 07/05/2017 SUBJECTIVE: Ms. Ash werner she is feeling bad again. Apparently earlier [...] she was diagnosed with "biliary cirrhosis" in [facility] on many years ago and had [...] consider transferring the patient back down to [place] to be seen by her ERCP speciali [...] Date/Time: 07/05/17 1411 Transcribed Date/Time: 07/05/17 1617 Drum Reel Cutter: MLJ 2017-07-05 [facility] Name: YESSENIA BRODY Prosperity LSJH 14:45:00-00:[address] : 1960, Age: 56, Sex: JERONIMO Ortega [address] Unit #: [id number], Status: DIS IN [phone] Location: [address] Report Dict DrYoly: Mariann Reeves MD Admission Date: 07/03/17 Report #: [id number] Discharge Date: 07/09/17 CC: Hospitalist Progress Note [...] 07/05/17 07/06/17 06:59 06:59 06:59 Intake Total 4081 1845 Output Total 600 Balance 0069 1842 Result Diagrams: 07/05/17 04:25 07/05/17 04:25 Phys [...] care, plan discussed w/ fam vincenzo, PT/OT, manager social work Possible Liver biopsy on saturday per Gastrenterol ogy * . <Electronically signed by Mariann Reeves MD> 07/16/17 0407 2017-07-05 [facility] Name: KHOA CLEMENTEYESSENIA Christopher LSJH 08:59:00-00:00 [facility] [address] : 1960, Age: 56, Sex: JERONIMO Ortega [address] Unit #: [id number], Status: ADM IN [phone] Location: [facility] Report Dict : Jose Luis Romero MD Admission Date: 07/03/17 Report #: [id number] Discharge Date: CC: Bita Hatfield NP, Christopher [...] with her intervent ional gastrologist tomorrow in [place], Dr. Ana María Agustin, she will follow up with him next week . If she needs further biliary intervention that would be the best place for her as it seems sh e has had some disorder requiring stents every 4 months. This probably would be on the scope for community Gastrology alexandro saeed. Reported By: Jose Luis Romero MD Electronically Signed Date/Time: 07/08/17 1205 Dictated Date/Time: 07/04/17 2683 Transcribed Date/Time: 07/04/17 9036 Drum Reel Cutter: MLJ 2017-07-04 [facility] Name: YESSENIA BRODYbes, Christopher STLSJH 11:24:00-00:[address] : 1960, Age: 56, Sex: JERONIMO Ortega [address] Unit #: [id number], Status: ADM IN [phone] Location: [address] Attending Phys: Boogie Cox MD Discharge Date: Report #: [id number] Consulting Phys: Jose Luis Romero MD CC: [...] gastroenter ologist, Dr. Ana María Penny in [place] and had multiple biliary stents placed, at [...] bupropion patch every 7 days. PRESENT MEDICATIONS: Cumming, Valium, Lovenox, Pepcid, Cozaar, morphine, Zofran, Percocet, [...] her history of multiple ERCPs in the pas t. At this time, she has no [...] records from her last individual gastrologist in [place] to see if we can obtain a diagnosis, which anastasia stokes has. Depending on findings on MRCP, she may or may not need an ERCP. We will also get markers PS C primary biliary cirrhosis and autoimmune liver disease. Reported By: Jose Luis Romero MD Electronically Signed Date/Time: 07/04/17 1433 Dictated Date/Time: 07/03/17 1544 Transcribed Date/Time: 07/03/17 1630 Drum Reel Cutter: YOLANDE 2017-07-04 [facility] Name: YESSENIA BRODY Prosperity LSJH 08:50:00-00:[address] : 1960, Age: 56, Sex: JERONIMO Ortega [address] Unit #: [id number], Status: DIS IN [phone] Location: [address] Report Dict DrYoly: Mariann Reeves MD Admission Date: 07/03/17 Report #: [id number] Discharge Date: 07/09/17 CC: Hospitalist Progress Note [...] by Mariann Reeves MD> 07/16/17 0407 2017-07-03 [facility] Name: ALEC ALEMAN Eh Cerda STLSJH 14:43:00-00:[address] : 1960, Age: 56, Sex: JERONIMO Ortega [address] Unit #: [id number], Status: ADM IN [phone] Location: [address] [place] [address] Report Dict DrYoly: Eh Henderson MD Admission Date: 07/03/17 Report #: [id number] Discharge Date: CC: Bita Hatfield NP, Mohan MD Walker, Eric P MD HISTORY AND PHYSICAL REPORT DATE OF ADMISSION: 07/03/2017 CHIEF COMPLAINT: Abdominal pain. HISTORY OF PRESENT ILLNESS: This is a 56-year-old, morbidly obese, white female with a known past medical history of cholecyst ectomy and following which she was having persistent biliary cholestasis. She has recentl y moved from [place] to [place], [place], for her 's transfer, and she [...] time. 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 CENTRAL NERVOUS SYSTEM: Power Chisel Operator nial examination II-XII intact. No focal deficits [...] Date/Time: 07/03/17 1414 Transcribed Date/Time: 07/03/17 1442 Drum Reel Cutter: PRADEEP
[2022-10-03 16:33] LABS: Absolute Lymphocytes (CBC) 0.8 K/uL (0.7-4.9); Hematocrit 33.6 % (36.0-45.0); Lymphocytes % 10.4 % (15.3-44.8); MCV 91.3 fL (80-100); MPV 7.8 fL (7.6-11.3); RBC Red Blood Cell Count 3.68 M/uL (3.86-4.86)
[2022-10-03 16:56] LABS: ALT/SGPT 222 U/L (13-56); AST/SGOT 235 U/L (15-37); Albumin 3.6 g/dL (3.4-5.0); BUN Blood Urea Nitrogen 17 mg/dL (7-18); Bicarbonate 22 mEq/L (21-32); Bilirubin Total 3.5 mg/dL (0.2-1.0); Glomerular Filtration Rate 79 ml/min (=/>90); Glucose Level 104 mg/dL (74-106); Lipase 37 U/L (13-75); Potassium 3.7 mEq/L (3.5-5.1); Protein, Total 8.6 g/dL (6.4-8.2); Sodium Level 137 mEq/L (136-145)
[2022-10-03 17:11] LABS: Alkaline Phosphatase > 1000 U/L (45-117)
[2022-10-03] MEDS ORDERED: LORazepam 2 MG/ML VIAL ONE (17:37)
[2022-10-03] MEDS ORDERED: MORPHINE 4 MG/ML SYR ONE (17:38)
[2022-10-03] MEDS ORDERED: ONDANSETRON 4 MG/2 ML VIAL ONE (17:38)
[2022-10-03] MEDS ORDERED: Ringers Lactate 1,000 ML IV ONE (17:38)
[2022-10-03] MEDS ORDERED: DIPHENHYDRAMINE 50 MG/ML VIAL ONE (18:58)
--- NOTE | 2022-10-03 19:28 | EDPHYS ---
Physician Documentation [facility] Name: Yessenia Aleman Age: 61 yrs Sex: Female : 1960 Arrival Date: 10/03/2022 Time: 14:55 Bed 6 Private MD: MAGDALENE Physician Kyler Flores HPI: 10/03 16:07 This 61 yrs old Female presents to ER via EMS with complaints of jmm Nausea/Vomiting. 16:07 The patient presents to the emergency department with nausea, abdominal pain. Onset: jmm The symptoms/episode began/occurred gradually, 1 day(s) ago. Possible causes: flare up of bowel problem. The symptoms are aggravated by nothing. The symptoms are alleviated by nothing. Associated signs and symptoms: Pertinent positives: sore throat, Pertinent negatives: fever. The patient has experienced similar episodes in the past, chronically. Historical: - Allergies: 15:56 Codeine; ph - PMHx: 15:56 Anxiety; Arthritis; biliary chirrosis; biliary disease; Cirrhosis; Hypertension; ph Pancreatitis; - PSHx: 15:56 Appendectomy; Biliary stent removal; Biliary stents; Cholecystectomy; ph ROS: 16:07 Constitutional: Negative for fever, chills, and weight loss, Cardiovascular: Negative jmm for chest pain, palpitations, and edema, Respiratory: Negative for shortness of breath, cough, wheezing, and pleuritic chest pain. 16:07 Abdomen/GI: Positive for abdominal pain, nausea. 16:07 All other systems are negative. Exam: 16:07 Head/Face: atraumatic. Eyes: EOMI, no conjunctival erythema appreciated ENT: Moist jmm Mucus Membranes Neck: Trachea midline, Supple Chest/axilla: Normal chest wall appearance and motion. Cardiovascular: Regular rate and rhythm. No edema appreciated Respiratory: Normal respirations, no respiratory distress appreciated Abdomen/GI: Non distended Back: Normal ROM Skin: General appearance color normal MS/ Extremity: Moves all extremities, no obvious deformities appreciated, no edema noted to the lower extremities Neuro: Awake and alert Psych: Behavior is normal, Mood is normal, Patient is cooperative and pleasant 16:07 Constitutional: The patient appears alert, awake, uncomfortable. Vital Signs: 15:53 BP 114 / 81; Pulse 105; Resp 18; Temp 97.9; Pulse Ox 100% on R/A; Height 5 ft. 0 in. ; ph 17:44 BP 118 / 104; Pulse 98; Resp 18; Pulse Ox 98% on R/A; ld1 18:03 BP 118 / 104; Pulse 94; Resp 18; Pulse Ox 100% on R/A; ld1 19:30 BP 141 / 98; Pulse 100; Resp 20; Pulse Ox 100% ; Pain 0/10; jj7 19:30 Pain Scale: Adult jj7 MDM: 16:07 Differential diagnosis: Nonspecific abd pain, gastritis, pancreatitis. [facility] 16:07 Data reviewed: vital signs, nurses notes. [facility] 16:09 Patient medically screened. [facility] 16:21 Patient medically screened. [facility] 18:52 ED course: Labs appear consistent with previous results. Patient is non toxic in [facility] appearance. I do not currently suspect an acute process. patient advised to follow up with pcp and otherwise given strict return precautions. patient understood and agrees with the plan of care. . 10/03 16:07 Order name: CBC with Diff; Complete Time: 16:38 [facility] 10/03 16:07 Order name: CMP; Complete Time: 17:13 [facility] 10/03 16:07 Order name: Lipase; Complete Time: 17:13 [facility] 10/03 16:07 Order name: IV Saline Lock; Complete Time: 16:30 [facility] 10/03 16:07 Order name: Labs collected and sent; Complete Time: 16:30 [facility] Administered Medications: 17:36 Drug: Ondansetron IVP 4 mg Route: IVP; Site: left forearm; bp 19:30 Follow up: Response: Marked relief of symptoms jj7 17:36 Drug: Lactated Ringers Solution IV 1000 ml Route: IV; Rate: 1000 bolus; Site: left bp forearm; 19:00 Follow up: IV Status: Completed infusion jj7 17:36 Drug: Ativan IVP 1 mg Route: IVP; Site: left forearm; bp 19:39 Follow up: Response: Marked relief of symptoms jj7 17:36 Drug: morphine IVP or IV 4 mg Route: IVP; Infused Over: 4 mins; Site: left forearm; bp 19:30 Follow up: Response: Marked relief of symptoms jj7 17:43 Drug: Lactated Ringers Solution IV 1000 ml Route: IV; Rate: 1000 bolus; Site: left bp forearm; 19:00 Follow up: IV Status: Completed infusion jj7 18:52 Drug: diphenhydrAMINE IVP 25 mg Route: IVP; Site: left antecubital; bp 19:30 Follow up: Response: Marked relief of symptoms jj7 Disposition Summary: 10/03/22 19:26 Discharge Ordered Location: Home [facility] Condition: Stable jmm Diagnosis - Epigastric pain, biliary cirrhosis [facility] Followup: [facility] - With: Chester Yang MD - When: 2 - 3 days - Reason: Recheck today's complaints, Continuance of care, Re-evaluation by your physician Discharge Instructions: - Discharge Summary Sheet [facility] - Abdominal Pain, Adult jm Forms: - Medication Reconciliation Form [facility] - Thank You Letter [facility] - Antibiotic Education [facility] - Prescription Opioid Use [facility] - Work release form as6 Prescriptions: - ondansetron 4 mg Oral Tablet,disintegrating - take 1 tablet by ORAL route every 4-6 hours As needed as needed for nausea and jmm vomiting; 20 tablet; Refills: 0, Product Selection Permitted - promethazine-DM 6.25-15 mg/5 mL Oral syrup - administer 10 milliliter by ORAL route every 4 to 6 hours As needed; 200 jmm milliliter; Refills: 0, Product Selection Permitted Signatures: Dispatcher [employer] EDKyler Lowry MD MD cha Mickail, Joel, PA PA jmm Hall, Patricia, RN RN Abe Kinsey RN RN Malachi Acevedo RN jj7
--- NOTE | 2022-10-03 19:28 | ER ---
Nurse's Notes [facility] Name: Yessenia Aleman Age: 61 yrs Sex: Female : 1960 Arrival Date: 10/03/2022 Time: 14:55 Bed 6 Private MD: Diagnosis: Epigastric pain, biliary cirrhosis Presentation: 10/03 15:53 Chief complaint: Patient states: Pain to entire abdomen, N/V that started today. Was ph seen in the ER yesterday for similar symptoms and d/c home, states, " I was feeling better when I went home but today I feel worse." Hx of pancreatitis, states that pain today is different. Coronavirus screen: Vaccine status: Patient reports receiving the 2nd dose of the covid vaccine. Ebola Screen: No symptoms or risks identified at this time. Initial Sepsis Screen: Does the patient meet any 2 criteria? No. Patient's initial sepsis screen is negative. Does the patient have a suspected source of infection? No. Patient's initial sepsis screen is negative. Risk Assessment: Do you want to hurt yourself or someone else? Patient reports no desire to harm self or others. 15:53 Method Of Arrival: EMS: [facility] 15:53 Acuity: HOLLI 3 ph Historical: - Allergies: 15:56 Codeine; ph - PMHx: 15:56 Anxiety; Arthritis; biliary chirrosis; biliary disease; Cirrhosis; Hypertension; ph Pancreatitis; - PSHx: 15:56 Appendectomy; Biliary stent removal; Biliary stents; Cholecystectomy; ph Screenin:03 [facility] ED Fall Risk Assessment (Adult) History of falling in the last 3 months, ld1 including since admission No falls in past 3 months (0 pts). Abuse screen: Denies threats or abuse. Denies injuries from another. Nutritional screening: No deficits noted. Tuberculosis screening: No symptoms or risk factors identified. Assessment: 18:03 General: Appears in no apparent distress. comfortable, Behavior is calm, cooperative, ld1 appropriate for age. Pain: Denies pain. Neuro: Level of Consciousness is awake, alert, obeys commands, Oriented to person, place, time, situation. Cardiovascular: Capillary refill < 3 seconds Patient's skin is warm and dry. Respiratory: Airway is patent Respiratory effort is even, unlabored. GI: Abdomen is round non-distended, Reports nausea, vomiting. : No signs and/or symptoms were reported regarding the genitourinary system. EENT: No signs and/or symptoms were reported regarding the EENT system. Derm: No signs and/or symptoms reported regarding the dermatologic system. Musculoskeletal: No signs and/or symptoms reported regarding the musculoskeletal system. Vital Signs: 15:53 BP 114 / 81; Pulse 105; Resp 18; Temp 97.9; Pulse Ox 100% on R/A; Height 5 ft. 0 in. ; ph 17:44 BP 118 / 104; Pulse 98; Resp 18; Pulse Ox 98% on R/A; ld1 18:03 BP 118 / 104; Pulse 94; Resp 18; Pulse Ox 100% on R/A; ld1 19:30 BP 141 / 98; Pulse 100; Resp 20; Pulse Ox 100% ; Pain 0/10; jj7 19:30 Pain Scale: Adult [facility] ED Course: 14:59 Patient arrived in ED. kj1 15:56 Triage completed. ph 15:57 Arm band placed on Patient placed in an exam room. ph 16:06 Troy Simmons PA is PHCP. jmm 16:06 Kyler Flores MD is Attending Physician. jmm 16:30 Inserted saline lock: 20 gauge in left antecubital area, using aseptic technique. Blood rs5 collected. 16:30 CBC with Diff Sent. rs5 16:30 CMP Sent. rs5 16:31 Lipase Sent. rs5 17:22 Abe Mar, RN is Primary Nurse. bp 18:03 Patient has correct armband on for positive identification. Placed in gown. Bed in low ld1 position. Call light in reach. Side rails up X2. Seizure precautions initiated. youth nutritional monitor on. Pulse ox on. NIBP on. Door closed. Noise minimized. Warm blanket given. 18:03 No provider procedures requiring assistance completed. ld1 19:26 Chester Yang MD is Referral Physician. jmm 19:39 IV discontinued, intact, bleeding controlled, No redness/swelling at site. Pressure jj7 dressing applied. Administered Medications: 17:36 Drug: Ondansetron IVP 4 mg Route: IVP; Site: left forearm; bp 19:30 Follow up: Response: Marked relief of symptoms jj7 17:36 Drug: Lactated Ringers Solution IV 1000 ml Route: IV; Rate: 1000 bolus; Site: left bp forearm; 19:00 Follow up: IV Status: Completed infusion jj7 17:36 Drug: Ativan IVP 1 mg Route: IVP; Site: left forearm; bp 19:39 Follow up: Response: Marked relief of symptoms jj7 17:36 Drug: morphine IVP or IV 4 mg Route: IVP; Infused Over: 4 mins; Site: left forearm; bp 19:30 Follow up: Response: Marked relief of symptoms jj7 17:43 Drug: Lactated Ringers Solution IV 1000 ml Route: IV; Rate: 1000 bolus; Site: left bp forearm; 19:00 Follow up: IV Status: Completed infusion jj7 18:52 Drug: diphenhydrAMINE IVP 25 mg Route: IVP; Site: left antecubital; bp 19:30 Follow up: Response: Marked relief of symptoms jj7 Medication: 19:39 VIS not applicable for this client. jj7 Outcome: 19:26 Discharge ordered by MD. anne 19:39 Discharged to home ambulatory. jj7 19:39 Condition: improved 19:39 Discharge instructions given to patient, Instructed on discharge instructions, follow up and referral plans. medication usage, Demonstrated understanding of instructions, follow-up care, medications, Prescriptions given X 1. 19:52 Patient left the ED. jj7 Signatures: Troy Simmons PA PA jmm Hall, Patricia, RN RN Abe Kinsey RN Cindy Young kj1 Leah Courtney RN RN ld1 Malachi Chapman RN RN jj7 Nicolas Crum rs5
[2022-10-03 20:18] VITALS: TEMP 97.9
[2022-10-03 20:30] VITALS: O2SAT 100
[2022-10-03 20:31] VITALS: BP 141/98
== END 2022-10-03 19:52 | disposition home or self-care (01) ==
LOC: ER 14:55
DX: K74.5 Biliary cirrhosis, unspecified (principal); I10 Essential (primary) hypertension; Z88.5 Allergy status to narcotic agent
CPT/HCPCS: 85025; 36415; 83690; 80053; J1200; J2405; J7120

== ENCOUNTER 2022-10-25 14:31 | Emergency (ER) | payer OTHER ==
[2022-10-25] MEDS ORDERED: ONDANSETRON 4 MG (ODT) TAB ONE (15:09)
[2022-10-25] MEDS ORDERED: CEPHALEXIN 250 MG CAP ONE (15:09)
[2022-10-25] MEDS ORDERED: SMZ./TMP. 800/160 MG TABLET ONE (15:09)
[2022-10-25] MEDS ORDERED: LORAZEPAM 1 MG TABLET ONE (15:09)
[2022-10-25] MEDS ORDERED: HYDROCODONE/APAP 5/325 MG TAB ONE (15:10)
--- OUTSIDE RECORDS SUMMARY | 2022-10-25 15:22 | XMS REPORT | Continuity of Care Document ---
:1960 Author Organization [facility] t Address [address] [place] [address] [address] [place] [address] Care Team Providers Name Role Phone INDIRA MONTERROSO Primary Care Physician Unavailable Belinda Osman Attending Clinician Unavailable Slade, Na L Attending Clinician Unavailable GULSHAN PIPER Attending Clinician [...] Clinician Juan Luis WEBSTER, Rigoberto Attending Clinician Micaela WEBSTER, Pasha Attending Clinician JUDY WEISS Attending Clinician Unavailable Isela WEBSTER, Judy Beth Attending Clinician [phone] MILAGROS OHARA Attending Clinician Unavailable ELYSSA MAXWELL Attending Clinician Unavailable Nguyễn Montano MD Attending Clinician Elyssa Maxwell DO Attending Clinician MEKA HAMMONDS Attending Clinician Unavailable Meka Hammonds NP Attending Clinician VIRA WASHBURN Attending Clinician Unavailable Doctor Unassigned, [place] Attending Clinician Unavailable MARIANA RAMIREZ Attending Clinician [...] Clinician Unavailable Ysabel WEBSTER, Daniel Attending Clinician Gulshan Piper MD Attending Clinician EBRACKM, CONSUELO Attending Clinician Unavailable Ebrahim NATIONAL INSURANCE OFFICER, Rania Attending Clinician Kelly KAN, Kelsy Lemon Attending Clinician Unavailable Phillip [facility] Attending Clinician Unavailable Green NATIONAL INSURANCE OFFICER, Korina Attending Clinician KORINA ALBERTO Attending Clinician Unavailable OLGA LIDIA ORNELAS Attending Clinician Unavailable Phillip Chen [facility] Attending Clinician Unavailable Hakeem WEBSTER, Olga Lidia Attending Clinician ROSALINDA WALTON Attending Clinician Unavailable Isabelle WEBSTER, Rosalinda Upton Attending Clinician Karo KAN, Karlene Hawley Attending Clinician Unavailable Vira Washburn MD Attending Clinician Zulema PERRIN, Eliana Feliciano Attending Clinician ELIANA POOLE Attending Clinician Unavailable Kadi Duggan MD Attending Clinician Uriel Santo MD Attending Clinician URIEL SANTO Attending Clinician Unavailable Maisha Bledsoe Attending Clinician MAISHA REYES Attending Clinician Unavailable SULAIMAN MARSH Attending Clinician Unavailable Keira WEBSTER, Moise Mason Attending Clinician Jaki POLANCO Attending Clinician Unavailable Rayray Ayala MD, Leonard Attending Clinician Asaf NATIONAL INSURANCE OFFICER, Kirstin Attending Clinician Lab, Adc Fam Pob I Attending Clinician Unavailable Kayy NATIONAL INSURANCE OFFICER, Loyda Attending Clinician Jeannie Slade Attending Clinician Ivy WEBSTER, Gabriele Mason Attending Clinician Mazin WEBSTER, Katheryn Attending Clinician Diego Grigsby MD, Kobi Attending Clinician GABRIELE GRAYSON Attending Clinician Unavailable JADYN SKAGGS Attending Clinician Unavailable Milagros Ohara MD [...] Unavailable CONSUELO AVENDAÑO Admitting Clinician Unavailable ROSALINDA WALTON Admitting Clinician Unavailable ELIANA POOLE Admitting Clinician Unavailable Kadi Duggan MD Admitting Clinician KADI DUGGAN Admitting Clinician Unavailable Moise Gamez MD Admitting Clinician Jaki POLANCO Admitting Clinician Unavailable Diego Grigsby MD, Kobi Admitting Clinician GABRIELE GRAYSON Admitting Clinician Unavailable JADYN SKAGGS Admitting Clinician Unavailable Maxim WEBSTER, Carlito Admitting Clinician Boogie Cox Admitting Clinician Unavailable Payers Payer Name Policy Type Policy Number Effective Date Expiration Date S nasra [facility] [id number] 2021 DOUGLAS 00:00:00 MEDICARE PART A [id number] 2015 \\T\\ B 00:00:00 CIGNA II [id number] 2018 00:00:00 MEDICARE A B [id number] 2015 00:00:00 CIGNA [id number] 2018 HMO/POS/OPEN 00:00:00 ACCESS BCBS OS [id number] 2020 POS/PPO/EPO 1 00:00:00 00:00:00 Cigna Preferred 53 [id number] 2021 [facility] Medicare (HMO) 00:00:00 - [facility] CIGNA 53 [id number] 2018 [facility] 00:00:00 [facility] MEDICARE MB [id number] 2016 [facility] NOVITAS 00:00:00 [facility] Problems Condition Condition Condition Status Onset Resolution [...] Active Unive rs 5-20 ity of 00:00: [place] [facility] Acute on Acute on Disease Active Unive rs chronic chronic 4-10 ity of pancreatit pancreatit [place] 00 Medical [place] Pancreatit Pancreatit Disease Active [facility] is, acute is, acute 5-25 Luke s 00:00: [facility] 00 Center 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 00 Center S/P ERCP S/P ERCP Disease Active [facility] 5[facility]16 [facility] 00:00: [place] [address] Center Cerebrovas Cerebrovas Disease Active 2019- U nivers cular cular 0-22 ity of accident accident 00:00: [place] (CVA) due (CVA) due 00 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 Arthritis Arthritis Disease Active 2019-04 Uni vers 0-21 ity of 00:00: [place] [facility] Toxic Toxic Disease Active 2019-04 Univers metabolic metabolic 0-20 ity of encephalop encephalop 00:00: Dom mao athy athy 00 Medical Branch Altered Altered Disease Active 2019-04 Univers mental mental 0-18 ity of status status 00:00: [place] [facility] Abdominal Abdominal Disease Active 2019-0 Uni vers pain pain 8-03 ity of 00:00: [place] [facility] Acute Acute Disease Active 2019-0 Univers abdominal abdominal 8-03 ity of pain pain 00:00: [place] [facility] Peripheral Peripheral Disease Active 2019-0 U nivers nerve nerve 7-10 ity of disease disease 00:00: [place] 00 Medical Branch Choledocho Choledocho Disease Active 2018-0 U nivers lithiasis lithiasis 7-20 ity of 00:00: [place] [facility] Constipati Constipati Disease Active 2018-0 U nivers on on 7-18 ity of 00:00: [place] 00 Medical Branch Acute Acute Disease Active 2018- Univers appendicit appendicit 6-10 it y of is is 00:00: [place] [facility] Transamini Transamini Disease Active 2017-0 U nivers tis tis 8-17 ity of 00:00: [place] 00 Medical Branch Acute Acute Disease Active 2017 Univers cystitis cystitis 8-15 ity of without without 00:00: [place] hematuria hematuria 00 [facility] Branch History of History of Disease Active U nivers biliary biliary 8-15 ity of duct stent duct stent 00:[place] placement placement 00 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 pain pain Branch Obesity Obesity Disease Active 2015-04 Univers (BMI (BMI 1-17 ity of 30-39.9) 30-39.9) 00:00: [place] 00 Medical Branch Abdominal Abdominal Disease Active [facility] pain, pain, 5-07 [facility] acute, acute, 00:00: Medical right right 00 Center upper upper quadrant quadrant Hypokalemi Hypokalemi Disease Active [facility] a a 7-27 [facility] 00:00: Medical 00 Center Chronic Chronic Disease Active [facility] pain pain 7-27 [facility] syndrome syndrome 00:00: Medica l 00 Center Hypokalemi Hypokalemi Disease Active [address] c periodic c periodic 7-27 Shari kes paralysis paralysis 00:00: [facility] 00 Center Biliary Biliary Disease Active [...] stenosis stenosis 04-22 [facility] 00:00: Medical 00 [place] Elevated Elevated Disease Active 2012-04 [facility] liver liver 04-22 [facility] enzymes enzymes 00:00: Medical 00 [place] Hypertensi Hypertensi Disease Active 2012-[address] on on 04-22 [facility] 00:00: Medical 00 [place] Nausea & Nausea & Disease Active 2012-04 [facility] vomiting vomiting 04-22 [facility] 00:00: Medical 00 [place] Fatty Fatty Disease Active 2012-[address] liver liver 04-22 [facility] 00:00: Medical 00 [place] Alcohol Alcohol Disease Active 2012-[address] use use 04-22 [facility] 00:00: Medical 00 [place] Immunity Immunity Disease Active 2012-04 [facility] t status status 04-22 [facility] testing testing 00:00: Medical 00 [place] Iron Iron Problem Common deficiency deficiency Sp roberta anemia anemia, - [facility] unspec[facility]ie [facility] d iron [facility] deficiency Medica l anemia Center type [id number] Neuropathy Problem Co mmon Spirit [facility] 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 - CHI hemorrhage disease St , without [facility]ukes perforatio Medica l n AND Center without obstructio n [id number] Other Problem Common chronic Spirit pain [facility] [id number] Osteoarthr Problem Co mmon itis Spirit involving - [facility] multiple St joints on [facility]ukes both sides Medica l of body Center Gastroesop Gastroesop Problem C ommon hageal hageal Spirit reflux reflux - CHI disease disease St without without [facility]ukes esophagiti esophagiti [facility] [id number] Moderately Problem Co mmon severe Spirit depression [facility] Adjustment Grieving Problem Com mon disorder Spirit with - CHI depressed [facility] Essential Essential Problem Com mon hypertensi hypertensi Sp roberta on on [facility] [id number] Anxiety Problem Common [facility] Primary Primary Problem Common insomnia insomnia [facility] [id number] Peptic Problem Common ulcer Spirit disease [facility] [id number] Post-menop Problem Com mon ausal Spirit bleeding [facility] [id number] Seasonal Problem Comm on allergies [facility] Allergies, Adverse Reactions, Alerts Allergy Allergy Status Severity Reaction(s) Onset Inactive Treating Comm ents Source Name Type Date Date Clinician ACETAMIN DRUG Active ITCHING Univers OPHEN-CO 17 ity of DEINE 00:00: [place] 00 Medical [...] Allergy 0-30 [facility] 00:00: Medical 00 Center CODEINE Allergy Active High Rash 2012-04 [facility] 0-30 00:00: 00 NO KNOWN Drug Active Univers ALLERGIE Class ity of S [place] [facility] Family History Family Member Diagnosis Comments Start Date Stop Date Source Natural brother Cancer [facility] Social History Social Habit Start Date Stop Date Quantity Comments Source History SDOH University o f Alcohol Comment [place] Med ical Branch History SDOH Social Unive rsity of [facility] Med ical Together Branch History SDOH Social Unive rsity of [facility] Medical Branch History SDOH Social Unive rsity of [facility] Medical Membership Branch History SDOH Social Unive rsity of [facility] Medical Meetings Branch History of Tobacco [facility] - Use [facility] History SDOH 2022-07-31 2022-07-31 1 University o f Alcohol Frequency 00:00:00 00:00:00 [place] M edical Branch History SDOH 2022-07-31 2022-07-31 5 University o f Financial 00:00:00 00:00:00 [place] [facility] History SDOH Food 2022-07-31 2022-07-31 1 Univers ity of Worry 00:00:00 00:00:00 [place] [facility] History SDOH Food 2022-07-31 2022-07-31 1 Univers ity of Scarcity 00:00:00 00:00:00 [place] [facility] History SDOH 2022-07-31 2022-07-31 2 [...] Unive rsity of Connections Living 00:00:00 00:00:00 [place] [facility] History SDOH 2022-07-31 2022-07-31 0 University o f Physical Activity 00:00:00 00:00:00 [place] M edical DPW Branch History SDOH 2022-07-31 2022-07-31 0 University o f Physical Activity 00:00:00 00:00:00 [place] M edical MPS Branch History SDOH 2022-07-31 2022-07-31 2 University o f Housing Unable to 00:00:00 00:00:00 [place] M edical Pay Branch History SDVT 2022-07-31 2022-07-31 1 University o f Housing Places 00:00:00 00:00:00 [place] Medi brandy Lived Branch History SDOH 2022-07-31 2022-07-31 2 University o f Housing Homeless 00:00:00 00:00:00 [facility] dical Last Year Branch Exposure to 2022-07-20 2022-07-30 Not sure University of SARS-CoV-2 (event) 00:00:00 15:29:00 [place] [facility] History SDOH 2022-04-26 2022-04-26 0 University o f Alcohol Std Drinks 00:00:00 00:00:00 [place] [facility] History SDOH 2022-04-26 2022-04-26 1 University o f Alcohol Binge 00:00:00 00:00:00 [place] Medic al Branch Alcohol intake 2020-09-06 2020-09-[address] Sammy es 00:00:00 00:00:00 non-drinker of Medical Ce nter alcohol (finding) Tobacco use and 2018-11-15 2018-11-15 Smokeless Universit y of exposure 00:00:00 00:00:00 tobacco non-user [facility] Sex Ass[birth year] At [birth year] ANDRES Ahn 00:00:00 00:00:00 Medical Center Smoking Status Start Date Stop Date Source Never smoked tobacco [facility] Medications Ordered Filled Start Stop Current Ordering Indication Dosage Frequency Signature Comments Components Source Medication Medication Date Date Medication? Clinician (SIG) Name Name sucralfate 2022-0 Yes 1g 1 g, Oral, U nivers (CARAFATE) 4-18 AC+HS, ity of tablet 1 g 21:30: [place] dose [place] 00 on [facility] 07/31/22 at Platter 1630, Until Discontinu ed, Routine maalox:diph 2022-0 2022- No 15mL 15 mL, Uni vers enhydrAMINE 18 04-18 Oral, ity of :lidocaine 16:45: 16:17 ONCE, 1 [place] 2 % viscous 00 :00 dose, On Medi brandy 1:1:1 [facility] (FIRST-MOUT 07/31/22 at [facility]) 1145, oral Routine suspension 15 mL tiZANidine 3-0 Yes 4mg Take 1 Unive rs 4 mg tablet 4-18 tablet by ity of 16:15: mouth in [place] [address] the Medical morning Branch and 1 tablet in the evening. traZODone 3-0 Yes 150mg Take 1 Unive rs 150 mg 4-18 tablet by ity of tablet 16:15: mouth at [place] [address] bedtime. Medical Branch losartan 3-0 Yes 100mg Take 1 Univer s 100 mg 4-18 tablet by ity of tablet 16:15: mouth in [place] [address] the Medical morning. Branch gabapentin 3-0 Yes 300mg Take 1 Univ ers 300 mg 4-18 capsule by ity of capsule 16:15: mouth in [place] [address] the Medical morning Branch and 1 capsule at noon and 1 capsule in the evening. proMETHazin 3-0 Yes 25mg Take 1 Univ ers e 25 mg 4-18 tablet by ity of tablet 16:15: mouth [place] [address] every 4 Medical (four) Branch hours as needed. tiZANidine 2023-0 Yes 4mg Take 1 Unive rs 4 mg tablet 4-18 tablet by ity of 16:15: mouth in [place] 48 the Medical morning Branch and 1 tablet in the evening. traZODone 2023-0 Yes 150mg Take 1 Unive rs 150 mg 4-18 tablet by ity of tablet 16:15: mouth at [place] [address] bedtime. Medical Branch losartan 2023-0 Yes 100mg Take 1 Univer s 100 mg 4-18 tablet by ity of tablet 16:15: mouth in [place] 48 the Medical morning. Branch gabapentin 2023-0 Yes 300mg Take 1 Univ ers 300 mg 4-18 capsule by ity of capsule 16:15: mouth in [place] 48 the Medical morning Branch and 1 capsule at noon and 1 capsule in the evening. proMETHazin 2023-0 Yes 25mg Take 1 Univ ers e 25 mg 4-18 tablet by ity of tablet 16:15: mouth [place] 48 every 4 Medical (four) Branch hours as needed. HYDROcodone 2022-0 Yes 1{tbl} 1 tablet, Univers -acetaminop 4-18 Oral, ity of hen (NORCO 14:39: Q6HPRN, [place] 5) 5-325 mg 28 Starting Medi brandy tablet 1 on [facility] tablet 07/31/22 at 0939, Until Discontinu ed, Routine, Pain (scale 7-10) losartan 2022-0 Yes 100mg 100 mg, Unive rs (COZAAR) 4-18 Oral, ity of tablet 100 14:00: DAILY, [place] mg 00 First dose Medical on [facility] 07/31/22 at 0900, Until Discontinu ed, Routine enoxaparin 2022-0 Yes 40mg 40 mg, Unive rs (LOVENOX) 4-18 Subcutaneo ity of injection 14:00: [place], DAILY, [place] 40 mg 00 First dose Medical on [facility] 07/31/22 at 0900, Until Discontinu ed, Routine pantoprazol 2022-0 Yes 40mg 40 mg, Univ ers e 4-18 Oral, BID, ity of (PROTONIX) 13:00: First dose [place] EC tablet 00 on [facility] 40 mg 07/31/22 at Branch 0800, Until Discontinu ed, Routine gabapentin 3-0 Yes 300mg 300 mg, Uni vers (NEURONTIN) 4-18 Oral, TID, it y of capsule 300 13:00: First dose [place] mg 00 on [facility] 07/31/22 at Branch 0800, Until Discontinu ed, Routine morpHINE (2 2022-0 2022- No 2mg 2 mg, Slow Univers mg/mL) 07-31 IV Push, ity of injection 2 06:45: 06:10 ONCE, 1 [place] mg 00 :00 dose, On [facility] 07/31/22 at 0145, Routine maalox:diph 2022-0 2022- No 15mL 15 mL, Uni vers enhydrAMINE 07-31 Oral, ity of :lidocaine 06:45: 06:10 ONCE, 1 [place] as 2 % viscous 00 :00 dose, On Medi brandy 1:1:1 [facility] (FIRST-MOUT 07/31/22 at [facility]) 0145, oral Routine suspension 15 mL tiZANidine 2022-0 Yes 4mg 4 mg, Univer s (ZANAFLEX) 07-31 Oral, BID, ity of tablet 4 mg 04:00: First dose [place] 00 on [facility] 07/30/22 at Branch 2300, Until Discontinu ed, Routine morpHINE (4 2022-0 2022- No 4mg 4 mg, Slow Univers mg/mL) 07-31 IV Push, ity of injection 4 02:30: 01:46 ONCE, 1 [place] mg 00 :00 dose, On [facility] 07/30/22 at 2130, STAT ondansetron 2022-0 Yes 4mg 4 mg, Slow Univers (ZOFRAN 07-31 IV Push, ity of (PF)) 02:18: Q6HPRN, [place] injection 4 59 Starting Medi brandy mg on [facility] 07/30/22 at 2118, Until Discontinu ed, Routine, Nausea and Vomiting (N/V) morpHINE (2 2022-0 2022- No 2mg 2 mg, Slow Univers mg/mL) 07-31 IV Push, ity of injection 2 02:18: 14:39 Q4HPRN, [place] mg 50 :46 Starting Medical on [facility] Branch 07/30/22 at 2118, Until 07/31/22 at 0939, Routine, Pain (scale 7-10) acetaminoph 2022-0 Yes 650mg 650 mg, Un you en 4-18 Oral, ity of (TYLENOL) 02:18: Q6HPRN, [place] tablet 650 45 Starting Medic al mg on Mon Branch 07/30/22 at 2118, Until Discontinu ed, Routine, Pain (scale 1-3) proMETHazin 2022- No 25mg 25 mg, IV Univers e 07-31 Piggyback, ity of (PHENERGAN) 02:00: 01:46 ONCE, 1 [place] 25 mg in 00 :00 dose, On Medical NaCl 0.9% [facility] Branch (NS) 50 mL 07/30/22 at IV 2100, [place] piggyback morpHINE (4 2022- No 4mg 4 mg, Slow Univers mg/mL) 07-31 IV Push, ity of injection 4 00:45: 00:34 ONCE, 1 [place] mg 00 :00 dose, On Medical [facility] Branch 07/30/22 at 1945, STAT pantoprazol 2022- Yes [id number] 40mg Take 1 Univers e 40 mg EC 07-31 tablet by ity of tablet 00:00: 04:59 mouth in [place] 00 :00 the Medical morning Branch and 1 tablet in the evening. Do all this for 30 days. sucralfate 2022- Yes [id number] 1g Take 1 Univers 1 gram 07-31 tablet by ity of tablet 00:00: 04:59 mouth [place] 00 :00 before Medical meals and Branch at bedtime for 30 days. pantoprazol 2022- Yes [id number] 40mg Take 1 Univers e 40 mg EC 07-31 tablet by ity of tablet 00:00: 04:59 mouth in [place] 00 :00 the Medical morning Branch and 1 tablet in the evening. Do all this for 30 days. sucralfate 2022- Yes [id number] 1g Take 1 Univers 1 gram 07-31 [...] 4647 1{tbl} Take 1 U nivers -acetaminop 18 - tablet by it y of hen 5-325 [...] ity of tablet 16:27: 00:00 mouth at [place] 25 :00 bedtime. Medical Branch losartan 2022- [...] mouth ity of tablet 16:27: 00:00 daily. [place] 25 :00 Medical Branch tiZANidine 2022-0 2022- No 1 tablet Un you 2 mg tablet 04-26 as needed it y of 16:27: 00:00 [place] 25 :00 Medical Branch escitalopra 2022-0 2022- No 5mg Take 5 mg Univers m oxalate 5 04-26 by mouth ity of mg tablet 16:27: 00:00 in the [place] [address] :00 morning. Medical Branch traZODone Yes 100mg Take 100 Uni vers 100 mg 1-12 mg by ity of tablet 16:25: mouth at [place] [address] bedtime. Medical Branch losartan 0 Yes 100mg Take 100 Univ ers 100 mg 1-12 mg by ity of tablet 16:25: mouth [place] [address] daily. Medical Branch gabapentin Yes 300mg Take 300 Un you 300 mg 1-12 mg by ity of capsule 16:25: mouth at [place] [address] bedtime. [facility] Branch QUEtiapine Yes 500mg Take 500 Un you 400 mg 1-12 mg by ity of tablet 16:25: mouth in [place] [address] the Medical morning. Platter Patient reports that she has real bad anxiety, her doctor just upped her dosage to 500 mg omeprazole Yes 20mg Take 20 mg U nivers 20 mg 12 by mouth ity of tablet 16:25: daily. [address] tiZANidine 0 Yes 1 tablet Uni vers 2 mg tablet 04-26 as needed ity of 16:25: [address] escitalopra 0 Yes 5mg Take 5 mg U nivers m oxalate 5 12 by mouth ity of mg tablet 16:25: in the [place] [address] morning. Medical Branch HYDROcodone 0 Yes 1{tbl} [...] Pain (scale 4-6) gadobenate 2022-0 2022- No [id number] .2mL/kg 13.28 mL Univers dimeglumine 04-26 (0.2 mL/kg i ty of (MULTIHANCE 15:30: 15:30 ?66.4 kg), [place] -15 mL) 00 :00 Intravenou Medica l injection s, ONCE, 1 Bran ch 13.28 mL dose, On Sat04/26/22 at 0930, Routine gadobenate 2022-0 2022- No [id number] .2mL/kg 13.28 mL Univers dimeglumine 04-26 (0.2 mL/kg i ty of (MULTIHANCE 15:30: 15:30 ?66.4 kg), [place] -15 mL) 00 :00 Intravenou Medica l [...] 40 mg 00 First dose Medical on [facility] Branch 04/26/22 at 0900, Until Discontinu ed, Routine escitalopra 2023-0 Yes 5mg 5 mg, Unive rs m oxalate 1-12 Oral, ity of (LEXAPRO) 15:00: DAILY, [place] tablet 5 mg 00 First dose Me dical on [facility] Branch 04/26/22 at 0900, Until Discontinu ed, Routine enoxaparin 2023-0 Yes 40mg 40 mg, Unive rs (LOVENOX) 1-12 Subcutaneo ity of injection 15:00: [place], DAILY, [place] 40 mg 00 First dose Medical on [facility] Branch 04/26/22 at 0900, Until Discontinu ed, Routine NaCl 0.9% 2023-0 Yes 1000mL at 150 Univ ers (NS) IV 1-12 mL/hr, IV ity of infusion 06:15: Infusion, [place] 1,000 mL 00 CONTINUOUS Medic al , Starting Branch on [facility] 04/26/22 at 0015, Until Discontinu ed, Routine NaCl 0.9% 2023-0 Yes 1000mL at 150 Univ ers (NS) IV 1-12 mL/hr, IV ity of infusion 06:15: Infusion, [place] 1,000 mL 00 CONTINUOUS Medic al , Starting Branch on [facility] 04/26/22 at 0015, Until Discontinu ed, Routine NaCl 0.9% 2023-0 2023- No 1000mL at 999 Uni vers (NS) bolus -12 01-12 mL/hr, ity of infusion 06:00: 05:34 1,000 mL, [place] 1,000 mL 00 :11 IV Medical Piggyback, Branch ONCE, 1 dose, On [facility] 04/26/22 at 0000, STAT NaCl 0.9% 2023-0 2023- No 1000mL at 999 Uni vers (NS) bolus -12 01-12 mL/hr, ity of infusion 06:00: 05:34 1,000 mL, [place] 1,000 mL 00 :11 [facility] dose, On [place] 04/26/22 at 0000, STAT traZODone 2023-0 Yes 100mg 100 mg, Univ ers (DESYREL) 1-12 Oral, QHS, ity of tablet 100 05:30: First dose [place] mg 00 on [facility] 04/25/22 at Branch 2330, Until Discontinu ed, Routine QUEtiapine 2023-0 Yes 50mg 50 mg, Unive rs (SEROQUEL) 1-12 Oral, QHS, ity of tablet 50 05:30: First dose [place] mg 00 on [facility] 04/25/22 at Branch 2330, Until Discontinu ed, Routine gabapentin 2023-0 Yes 300mg 300 mg, Uni vers (NEURONTIN) 1-12 Oral, QHS, it y of capsule 300 05:30: First dose [place] mg 00 on [facility] 04/25/22 at Branch 2330, Until Discontinu ed, Routine traZODone 2023-0 Yes 100mg 100 mg, Univ ers (DESYREL) 1-12 Oral, QHS, ity of tablet 100 05:30: First dose [place] mg 00 on [facility] 04/25/22 at Branch 2330, Until Discontinu ed, Routine QUEtiapine 2023-0 Yes 50mg 50 mg, Unive rs (SEROQUEL) 1-12 Oral, QHS, ity of tablet 50 05:30: First dose [place] mg 00 on [facility] 04/25/22 at Branch 2330, Until Discontinu ed, Routine gabapentin 2023-0 Yes 300mg 300 mg, Uni vers (NEURONTIN) 1-12 Oral, QHS, it y of capsule 300 05:30: First dose [place] mg 00 on [facility] 04/25/22 at Branch 2330, Until Discontinu ed, Routine ondansetron 2023-0 Yes 4mg 4 mg, Slow Univers (ZOFRAN 1-12 IV Push, ity of (PF)) 05:16: Q6HPRN, [place] injection 4 42 Starting Medi brandy mg on [facility] 04/25/22 at 2316, Until Discontinu ed, [...] Branch 2315, Until Discontinu ed, Routine sennosides 2022-0 Yes 8.6mg 8.6 mg, Uni vers (SENOKOT) [...] 1 Medical 50 mcg dose, On Branch Sat04/25/22 at 2115, Routine FENTanyl PF 2022- No 50ug 50 mcg, Un you (SUBLIMAZE 04-26 Slow IV ity o f (PF)) 03:15: 03:19 Push, [place] injection 00 :00 ONCE, 1 Medical 50 mcg dose, On Branch 04/25/22 at 2115, Routine iopamidol 2022-0 202- No [id number] 80mL 80 mL, U nivers (ISOVUE 04-26 Intravenou ity o f 370-500 mL) 01:30: 01:30 s, ONCE, 1 [place] injection 00 :00 dose, On Medica l 80 mL Wed Branch 04/25/22 at 1930, Routine iopamidol 2022-2022- No [id number] 80mL 80 mL, U nivers (ISOVUE 04-26 [...] 04/25/22 at 1815, Routine ondansetron 2022-0 Yes [id number] 4mg Take 1 Univers 4 mg 1-12 tablet by ity of disintegrat 00:00: mouth [place] ing tablet 00 every 8 Medica l (eight) Branch hours as needed for Nausea and Vomiting (N/V). pantoprazol 0 Yes [id number] 20mg Take 1 Univers e 20 mg [...] Indication s: acute pain ondansetron 2022-0 Yes [id number] 4mg Take 1 Univers 4 mg 1-12 tablet by ity of disintegrat 00:00: mouth [place] ing tablet 00 every 8 Medica l (eight) Branch hours as needed for Nausea and Vomiting (N/V). pantoprazol 2022-0 Yes [id number] 20mg Take 1 Univers e 20 mg [...] Indication s: acute pain ondansetron 2022-0 Yes [id number] 4mg Take 1 Univers 4 mg 1-12 tablet by ity of disintegrat 00:00: mouth [place] ing tablet 00 every 8 Medica l (eight) Branch hours as needed for Nausea and Vomiting (N/V). pantoprazol 2022-0 Yes [id number] 20mg Take 1 Univers e 20 mg [...] s: acute pain ondansetron 2022-0 2022- No [id number] 4mg Take 1 Univers 4 mg 1-12 04-17 tablet by ity of disintegrat 00:00: 00:00 [place] tablet 00 :00 every 8 Medica l (eight) Branch hours as needed for Nausea and Vomiting (N/V). pantoprazol 2022-0 2022- No [id number] 20mg Take 1 Univers e 20 mg EC 04-26 tablet by ity of tablet 00:00: 00:00 mouth in [place] 00 :00 the Medical morning. Branch HYDROcodone 2022- No [id number] 1{tbl} Take 1 U nivers -acetaminop 04-26 tablet by it y of hen 10-325 00:00: 00:00 mouth [place] mg tablet 00 :00 every 6 Medical (six) Branch hours as needed for Pain (scale 7-10). Indication s: acute pain docusate 2022- No [id number] 100mg Take 1 Univers 100 mg 04-26 capsule by ity of capsule 00:00: 05:59 mouth in [place] 00 :00 the [facility] Branch for 30 days. docusate 2022-2022- No [id number] 100mg Take 1 Univers 100 mg 04-26 capsule by ity of capsule 00:00: 05:59 mouth in [place] 00 :00 the [facility] morning Platter for 30 days. docusate 2022-0 No [id number] 100mg Take 1 Univers 100 mg 04-26 capsule by ity of capsule 00:00: 05:59 mouth in [place] 00 :00 the [facility] for 30 days. NaCl 0.9% No 1000mL at 999 Uni vers (NS) bolus 04-2512 mL/hr, ity of infusion 23:30: 01:21 1,000 mL, [place] 1,000 mL 00 :00 IV Medical Infusion, Branch ONCE, 1 dose, On Sat04/25/22 at 1730, STAT NaCl 0.9% No 1000mL at 999 Uni vers (NS) bolus 04-25 0112 mL/hr, ity of infusion 23:30: 01:21 1,000 mL, [place] 1,000 mL 00 :00 IV Medical Infusion, Branch ONCE, 1 dose, On Sat04/25/22 at 1730, STAT carvediloL 2022- No 1 tablet Un you 12.5 mg 04-25 with food ity of tablet 23:18: 00:00 [place] 50 :00 Medical Branch carvediloL 2022-2022- No 1 tablet Un you 12.5 mg [...] tablet by ity of 00:00: mouth in [place] 00 the Medical morning. Branch polyethylen 2021-04 Yes 17g Take 1 Univ ers e glycol 0-26 Packet by ity of 3350 17 00:00: mouth in [place] gram powder 00 the Medical morning. Branch OLANZapine 2021-04 Yes 5mg Take 1 Unive rs 5 mg tablet 0-26 tablet by ity of 00:00: mouth in [place] 00 the Medical morning. Branch polyethylen 2021-04 Yes 17g Take 1 Univ ers e glycol 0-26 Packet by ity of 3350 17 00:00: mouth in [place] gram powder 00 the Medical morning. Branch OLANZapine 2021-04 Yes 5mg Take 1 Unive rs 5 mg tablet 0-26 tablet by ity of 00:00: mouth in [place] 00 the Medical morning. Branch polyethylen 2021-04 Yes 17g Take 1 Univ ers e glycol 0-26 Packet by ity of 3350 17 00:00: mouth in [place] gram powder 00 the Medical morning. Branch OLANZapine 2021-04 Yes 5mg Take 1 Unive rs 5 mg tablet 0-26 tablet by ity of 00:00: mouth in [place] 00 the Medical morning. Branch polyethylen 2021-04 Yes 17g Take 1 Univ ers e glycol 0-26 Packet by ity of 3350 17 00:00: mouth in [place] gram powder 00 the Medical morning. Branch OLANZapine 2021-04- No 5mg Take 1 Univ ers 5 mg tablet 0-26 01-12 tablet by it y of 00:00: 00:00 mouth in [place] 00 :00 the Medical morning. Branch polyethylen 2021-04- No 17g Take 1 Uni vers e glycol 0-26 01-12 Packet by ity o f 3350 17 00:00: 00:00 mouth in [place] gram powder 00 :00 the Medical morning. Branch traZODone 2022-1 Yes 100mg Take 100 Uni vers 100 mg 0-25 mg by ity of tablet 19:56: mouth at [place] [address] bedtime. Medical Branch losartan 2021-04 Yes 100mg Take 100 Univ ers 100 mg 0-25 mg by ity of tablet 19:56: mouth [place] [address] daily. Medical Branch gabapentin 2021-04 Yes 300mg Take 300 Un you 300 mg 0-25 mg by ity of capsule 19:56: mouth at [place] [address] bedtime. Medical Branch QUEtiapine 2021-04 Yes 500mg Take 500 Un you 400 mg 0-25 mg by ity of tablet 19:56: mouth in [place] [address] the Medical morning. Branch Patient reports that she has real bad anxiety, her doctor just upped her dosage to 500 mg omeprazole 2021-04 Yes 20mg Take 20 mg U nivers 20 mg 0-25 by mouth ity of tablet 19:56: daily. [address] carvediloL 2021-04 Yes 1 tablet Uni vers 12.5 mg 0-25 with food ity of tablet 19:56: [address] tiZANidine 2021-04 Yes 1 tablet Uni vers 2 mg tablet 0-25 as needed ity of 19:56: [address] Branch traZODone 2021-04 Yes 100mg Take 100 Uni vers 100 mg 0-25 mg by ity of tablet 19:56: mouth at [place] [address] bedtime. Medical Branch losartan 2021-04 Yes 100mg Take 100 Univ ers 100 mg 0-25 mg by ity of tablet 19:56: mouth [place] [address] daily. Medical Branch gabapentin 2021-04 Yes 300mg Take 300 Un you 300 mg 0-25 mg by ity of capsule 19:56: mouth at [place] [address] bedtime. Medical Branch QUEtiapine 2021-04 Yes 500mg Take 500 Un you 400 mg 0-25 mg by ity of tablet 19:56: mouth in [place] [address] the Medical morning. Branch Patient reports that she has real bad anxiety, her doctor just upped her dosage to 500 mg omeprazole 2021-04 Yes 20mg Take 20 mg U nivers 20 mg 0-25 by mouth ity of tablet 19:56: daily. [address] carvediloL 2021-04 Yes 1 tablet Uni vers 12.5 mg 0-25 with food ity of tablet 19:56: [address] tiZANidine 2021-04 Yes 1 tablet Uni vers 2 mg tablet 0-25 as needed ity of 19:56: [address] traZODone 2021-04 Yes 100mg Take 100 Uni vers 100 mg 0-25 mg by ity of tablet 19:56: mouth at [place] [address] bedtime. Medical Branch losartan 2021-04 Yes 100mg Take 100 Univ ers 100 mg 0-25 mg by ity of tablet 19:56: mouth [place] [address] daily. Medical Branch gabapentin 2021-04 Yes 300mg Take 300 Un you 300 mg 0-25 mg by ity of capsule 19:56: mouth at [place] [address] bedtime. [facility] Branch QUEtiapine 2021-04 Yes 500mg Take 500 Un you 400 mg 0-25 mg by ity of tablet 19:56: mouth in [place] [address] the Medical morning. Platter Patient reports that she has real bad anxiety, her doctor just upped her dosage to 500 mg omeprazole 2021-04 Yes 20mg Take 20 mg U nivers 20 mg 0-25 by mouth ity of tablet 19:56: daily. [address] carvediloL 2021-04 Yes 1 tablet Uni vers 12.5 mg 0-25 with food ity of tablet 19:56: [address] tiZANidine 2021-04 Yes 1 tablet Uni vers 2 mg tablet 0-25 as needed ity of 19:56: [address] ARIPiprazol 2021-04- No 10mg Take 10 mg Univers e 10 mg 0-25 10-25 by mouth ity of tablet 15:53: 00:00 daily. [place] 25 :00 [facility] busPIRone 2021-04- No 15mg Take 15 mg U nivers 15 mg 0-25 10-25 by mouth ity of tablet 15:53: 00:00 [place]00 [facility] OLANZapine 2021-04 Yes 5mg 5 mg, Univer s (ZyPREXA) 0-25 Oral, ity of tablet 5 mg 14:00: [place]ILY[place] 00 [place] Medical on [facility] 02/06/22 at 0900, Until Discontinu ed, Routine QUEtiapine 2021-04 Yes 500mg 500 mg, Uni vers (SEROQUEL) 0-25 Oral, ity of tablet 500 14:00: DAILY, [place] mg 00 First dose Medical on [facility] 02/06/22 at 0900, Until Discontinu ed, Routine losartan 2021-04 Yes 100mg 100 mg, Unive rs (COZAAR) 0-25 Oral, ity of tablet 100 14:00: DAILY, [place] mg 00 First dose Medical on [facility] 02/06/22 at 0900, Until Discontinu ed, Routine acetaminoph 2021-04 Yes 650mg 650 mg, Un you en 0-25 Oral, ity of (TYLENOL) 06:15: Q6HPRN, [place] tablet 650 34 Starting Medic al mg on [facility] 02/06/22 at 0115, Until Discontinu ed, Routine, Pain (scale 1-3) traZODone 2021-04 Yes 100mg 100 mg, Univ ers (DESYREL) 0-25 Oral, QHS, ity of tablet 100 02:00: First dose [place] mg 00 on [facility] 02/05/22 Branch at 2100, Until Discontinu ed, Routine sennosides- 2021-04 Yes 1{tbl} Take 1 Un you docusate 0-25 tablet by ity of sodium 00:00: mouth in [place] 8.6-50 mg 00 the Medical per tablet morning Branch and 1 tablet in the evening. sennosides- 2021-04 Yes 1{tbl} Take 1 Un you docusate 0-25 tablet by ity of sodium 00:00: mouth in [place] 8.6-50 mg 00 the Medical per tablet morning Branch and 1 tablet in the evening. sennosides- 2021-04 Yes 1{tbl} Take 1 Un you docusate 0-25 tablet by ity of sodium 00:00: mouth in [place] 8.6-50 mg 00 the Medical per tablet morning Branch and 1 tablet in the evening. sennosides- 2021-04 Yes 1{tbl} Take 1 Un you docusate 0-25 tablet by ity of sodium 00:00: mouth in [place] 8.6-50 mg 00 the Medical per tablet morning Branch and 1 tablet in the evening. sennosides- 2021-04- No 1{tbl} Take 1 U nivers docusate 0-25 01-12 tablet by ity o f sodium 00:00: 00:00 mouth in [place] 8.6-50 mg 00 :00 the Medical per tablet morning Branch and 1 tablet in the evening. diatrizoate 2021-04 No [id number] 60mL 60 mL, Univers calista-diatriz 0-24 10-24 Oral, ity of oat sod 14:30: 19:22 ONCE, 1 [place] (GASTROGRAF 00 :00 dose, On Medi brandy [...] 17 g 00 First dose Medical on [place] Branch 02/04/22 at 1945, Until Discontinu ed, Routine HYDROcodone 2021-04 Yes 1{tbl} 1 tablet, Univers -acetaminop 0-24 Oral, ity of hen (NORCO 00:37: Q6HPRN, [place] 5) 5-325 mg 43 Starting Medi brandy tablet 1 on [place] Branch tablet 02/04/22 at 1937, Until Discontinu [...] at 1330, piggyback LOUIS iopamidol 2021-04- No [id number] 80mL 80 mL, Univers (ISOVUE 02-03 Intravenou ity o f 370-500 mL) 17:45: 18:00 s, ONCE, 1 [place] injection 00 :00 dose, On Medica l 80 mL Sat Branch 02/03/22 at 1300, Routine gabapentin 2021-04- No 1{capsu Take 1 U nivers 300 mg 02-03 le} capsule by ity of capsule 17:32: 00:00 mouth in [place] 31 :00 the Medical morning Branch and [...] 01/26/22 at 1700, STAT iopamidol 2021-04- No [id number] 75mL 75 mL, U nivers (ISOVUE 0-14 [...] by ity of capsule 19:45: mouth in [place] [address] the Medical morning Branch and 1 capsule at noon and 1 capsule in the evening. tiZANidine 2021-04 Yes 1 tablet Uni vers 2 mg tablet 0-14 as needed ity of 19:45: [address] Branch Tramadol 2021-04- No [id number] 100mg Take 1 Unive rs 100 mg 0-14 10-22 tablet by ity of tablet 00:00: 04:59 mouth [place] 00 :00 every 24 Medical ([facility]- Branch ur) hours as needed for Pain (scale 4-6) or Pain (scale 7-10) for up to 7 days. Indication s: acute pain ondansetron No 4mg 4 mg, Slow Univers (ZOFRAN 11-02 IV Push, ity of (PF)) 12:30: 12:28 ONCE, 1 [place] injection 4 00 :00 dose, On Medi brandy mg [facility] Branch 11/02/21 at 0730, LOUIS morpHINE (4 No 4mg 4 mg, Slow Univers mg/mL) 11-02 IV Push, ity of injection 4 12:30: 12:30 ONCE, 1 [place] mg 00 :00 dose, On Medical [facility] Branch 11/02/21 at 0730, STAT iopamidol 2021- No [id number] 50mL 50 mL, U nivers (ISOVUE 11-02 Intravenou ity o f 370-500 mL) 12:16: 12:16 s, ONCE, 1 [place] injection 00 :00 dose, On Medica l 50 mL [facility] Branch 11/02/21 at 0730, Routine ondansetron No 4mg 4 mg, Slow Univers (ZOFRAN 11-02 IV Push, ity of (PF)) 11:00: 10:41 ONCE, 1 [place] injection 4 00 :00 dose, On Medi brandy mg [facility] Branch 11/02/21 at 0600, LOUIS FENTanyl PF No 75ug 75 mcg, Un you (SUBLIMAZE 7-21 07-21 Slow IV ity o f (PF)) 11:00: 10:42 Push, [place] injection 00 :00 ONCE, 1 Medical 75 mcg dose, On Branch [place] 11/02/21 at 0600, STAT ondansetron 2-0 Yes [id number] 4mg Take 1 Univers 4 mg 7-21 tablet by ity of disintegrat 00:00: mouth [place] ing tablet 00 every 8 Medica l (eight) Branch hours as needed for Nausea and Vomiting (N/V). ondansetron 2021-0 Yes [id number] 4mg Take 1 Univers 4 mg 7-21 tablet by ity of disintegrat 00:00: mouth [place] ing tablet 00 every 8 Medica l (eight) Branch hours as needed for Nausea and Vomiting (N/V). ondansetron 2021-0 Yes [id number] 4mg Take 1 Univers 4 mg 7-21 tablet by ity of disintegrat 00:00: mouth [place] ing tablet 00 every 8 Medica l (eight) Branch hours as needed for Nausea and Vomiting (N/V). ondansetron 2021-0 Yes [id number] 4mg Take 1 Univers 4 mg 7-21 tablet by ity of disintegrat 00:00: mouth [place] ing tablet 00 every 8 Medica l (eight) Branch hours as needed for Nausea and Vomiting (N/V). ondansetron 2021-0 Yes [id number] 4mg Take 1 Univers 4 mg 7-21 tablet by ity of disintegrat 00:00: mouth [place] ing tablet 00 every 8 Medica l (eight) Branch hours as needed for Nausea and Vomiting (N/V). ondansetron 2-0 Yes [id number] 4mg Take 1 Univers 4 mg 7-21 tablet by ity of disintegrat 00:00: mouth [place] ing tablet 00 every 8 Medica l (eight) Branch hours as needed for Nausea and Vomiting (N/V). ondansetron 2-0 2022- No [id number] 4mg Take 1 Univers 4 mg 7-21 01-12 tablet by ity of disintegrat 00:00: 00:00 [place] tablet 00 :00 every 8 Medica l (eight) Branch hours as needed for Nausea and Vomiting (N/V). ondansetron 3- No [id number] 4mg Take 1 Univers 4 mg 7-21 -12 tablet by ity of disintegrat 00:00: 00:00 mouth [place] tablet 00 :00 every 8 Medica l (eight) Branch hours as needed for Nausea and Vomiting (N/V). ARIPiprazol Yes 10mg Take 10 mg Univers e 10 mg 6-18 by mouth ity of tablet 22:55: daily. [address] busPIRone Yes 15mg Take 15 mg Un you 15 mg 6-18 by mouth ity of tablet 22:55: as needed. [address] omeprazole Yes 20mg Take 20 mg U nivers 20 mg 6-18 by mouth ity of tablet 22:55: daily. [address] ARIPiprazol Yes 10mg Take 10 mg Univers e 10 mg 6-18 by mouth ity of tablet 22:55: daily. [address] busPIRone Yes 15mg Take 15 mg Un you 15 mg 6-18 by mouth ity of tablet 22:55: as needed. [address] omeprazole Yes 20mg Take 20 mg U nivers 20 mg 6-18 by mouth ity of tablet 22:55: daily. [address] ARIPiprazol Yes 10mg Take 10 mg Univers e 10 mg 6-18 by mouth ity of tablet 22:55: daily. [address] busPIRone Yes 15mg Take 15 mg Un you 15 mg 6-18 by mouth ity of tablet 22:55: as needed. [address] omeprazole Yes 20mg Take 20 mg U nivers 20 mg 6-18 by mouth ity of tablet 22:55: daily. [address] ARIPiprazol 0 Yes 10mg Take 10 mg Univers e 10 mg 6-18 by mouth ity of tablet 22:55: daily. [address] busPIRone 0 Yes 15mg Take 15 mg Un you 15 mg 6-18 by mouth ity of tablet 22:55: as needed. [address] omeprazole 0 Yes 20mg Take 20 mg U nivers 20 mg 6-18 by mouth ity of tablet 22:55: daily. [address] ARIPiprazol Yes 10mg Take 10 mg Univers e 10 mg 6-18 by mouth ity of tablet 22:55: daily. [address] busPIRone Yes 15mg Take 15 mg Un you 15 mg 6-18 by mouth ity of tablet 22:55: as needed. [address] omeprazole Yes 20mg Take 20 mg U nivers 20 mg 6-18 by mouth ity of tablet 22:55: daily. [address] HYDROmorphO Yes .2mg 0.2 mg, Uni [...] No 25ug 25 mcg, Un you (SUBLIMAZE 09-2917 Slow IV ity o f (PF)) 14:57: 15:18 Push, [place] injection 31 :00 Q5MIN PRN, Medi brandy 25 mcg 4 doses, Branch Starting on Sat09/29/21 at 0957, Until Sat09/29/21 at 1018, Routine, Pain (scale 4-6), PACU HYDROmorphO 2021- No .2mg 0.2 mg, Un you ne 09-2917 Slow IV ity of (DILAUDID) 14:57: 18:05 Push, [place] injection 31 :21 Q5MIN PRN, Medi brandy [...] Fri [place] irrigation 00 :43 09/29/21 at [facility] ical solution 0821, Branch Until Sat09/29/21 at [...] by ity of tablet 11:00: mouth at [place] [address] bedtime. Medical Branch losartan 0 Yes 100mg Take 100 Univ ers 100 mg 6-17 mg by ity of tablet 11:00: mouth [place] 16 daily. Medical Branch gabapentin Yes 300mg Take 300 Un you 300 mg 6-17 mg by ity of capsule 11:00: mouth 2 [place] 16 (two) Medical times Branch daily. QUEtiapine 0 Yes 400mg Take 400 Un you (SEROQUEL) 6-17 mg by ity of 400 mg 11:00: mouth [place] tablet 16 daily. Medical Patient Branch doesn't like to take it ARIPiprazol 2021-0 Yes 10mg Take 10 mg Univers e 10 mg 6-17 by mouth ity of tablet 11:00: daily. [place] [address] Medical Branch busPIRone 2021-0 Yes 15mg Take 15 mg Un you 15 mg 6-17 by mouth ity of tablet 11:00: as needed. [place] [address] Medical Branch omeprazole 2021-0 Yes 20mg Take 20 mg U nivers 20 mg 6-17 by mouth ity of tablet 11:00: daily. [place] [address] Medical Branch traZODone 0 Yes 100mg Take 100 Uni vers 100 mg 6-17 mg by ity of tablet 11:00: mouth at [place] [address] bedtime. Medical Branch losartan 2021-0 Yes 100mg Take 100 Univ ers 100 mg 6-17 mg by ity of tablet 11:00: mouth [place] 16 daily. Medical Branch gabapentin 0 Yes 300mg Take 300 Un you 300 mg 6-17 mg by ity of capsule 11:00: mouth 2 [place] [address] (two) Medical times Branch daily. QUEtiapine 0 Yes 400mg Take 400 Un you (SEROQUEL) 6-17 mg by ity of 400 mg 11:00: mouth [place] tablet 16 daily. Medical Patient Branch doesn't like to take it ARIPiprazol 2021-0 Yes 10mg Take 10 mg Univers e 10 mg 6-17 by mouth ity of tablet 11:00: daily. [place] [address] Medical Branch busPIRone 2021-0 Yes 15mg Take 15 mg Un you 15 mg 6-17 by mouth ity of tablet 11:00: as needed. [place] [address] Medical Branch omeprazole 2021-0 Yes 20mg Take 20 mg U nivers 20 mg 6-17 by mouth ity of tablet 11:00: daily. [place] [address] Medical Branch traZODone 2021-0 Yes 100mg Take 100 Uni vers 100 mg 6-17 mg by ity of tablet 11:00: mouth at [place] [address] bedtime. Medical Branch losartan 2021-0 Yes 100mg Take 100 Univ ers 100 mg 6-17 mg by ity of tablet 11:00: mouth [place] 16 daily. Medical Branch gabapentin 2021-0 Yes 300mg Take 300 Un you 300 mg 6-17 mg by ity of capsule 11:00: mouth 2 [place] [address] (two) Medical times Branch daily. QUEtiapine 2021-0 Yes 400mg Take 400 Un you (SEROQUEL) 6-17 mg by ity of 400 mg 11:00: mouth [place] tablet 16 daily. Medical Patient Branch doesn't like to take it ARIPiprazol 2021-0 Yes 10mg Take 10 mg Univers e 10 mg 6-17 by mouth ity of tablet 11:00: daily. [place] [address] Medical Branch busPIRone 2021-0 Yes 15mg Take 15 mg Un you 15 mg 6-17 by mouth ity of tablet 11:00: as needed. [place] [address] Medical Branch omeprazole 2021-0 Yes 20mg Take 20 mg U nivers 20 mg 6-17 by mouth ity of tablet 11:00: daily. [place] [address] Medical Branch traZODone 2021-0 Yes 100mg Take 100 Uni vers 100 mg 6-17 mg by ity of tablet 11:00: mouth at [place] [address] bedtime. Medical Branch losartan 2021-0 Yes 100mg Take 100 Univ ers 100 mg 6-17 mg by ity of tablet 11:00: mouth [place] 16 daily. Medical Branch gabapentin 2021-0 Yes 300mg Take 300 Un you 300 mg 6-17 mg by ity of capsule 11:00: mouth 2 [place] [address] (two) Medical times Branch daily. QUEtiapine 2021-0 Yes 400mg Take 400 Un you (SEROQUEL) 6-17 mg by ity of 400 mg 11:00: mouth [place] tablet 16 daily. Medical Patient Branch doesn't like to take it traZODone 2021-0 Yes 100mg Take 100 Uni vers 100 mg 6-17 mg by ity of tablet 11:00: mouth at [place] [address] bedtime. Medical Branch losartan 2021-0 Yes 100mg Take 100 Univ ers 100 mg 6-17 mg by ity of tablet 11:00: mouth [place] 16 daily. Medical Branch gabapentin 2021-0 Yes 300mg Take 300 Un you 300 mg 6-17 mg by ity of capsule 11:00: mouth 2 [place] [address] (two) Medical times Branch daily. QUEtiapine 2-0 [...] by ity of tablet 11:00: mouth at [place] 16 bedtime. Medical Branch losartan 2022-0 Yes 100mg Take 100 Univ ers 100 mg 6-17 mg by ity of tablet 11:00: mouth [place] 16 daily. Medical Branch gabapentin 2022-0 Yes 300mg Take 300 Un you 300 mg 6-17 mg by ity of capsule 11:00: mouth 2 [place] 16 (two) Medical times Branch daily. QUEtiapine [...] by ity of capsule 11:00: mouth 2 [place] 16 (two) Medical times Branch daily. QUEtiapine 2022-0 Yes 400mg Take 400 Un you (SEROQUEL) 6-17 mg by ity of 400 mg 11:00: mouth [place] tablet 16 daily. Medical Patient Branch doesn't like to take it aspirin 325 2021-0 2021- No [id number] 325mg Take 1 Univers mg tablet 09-29- 4106 tablet by ity of 00:00: 04:59 mouth 2 [place] 00 :00 (two) Medical times Branch daily with meals for 28 days. aspirin 325 2021-0 2021- No [id number] 325mg Take 1 Univers mg tablet 09-29- 4106 tablet by ity of 00:00: 04:59 mouth 2 [place] 00 :00 (two) Medical times Branch daily with meals for 28 days. aspirin 325 2021-2021- No [id number] 325mg Take 1 Univers mg tablet 09-29 4106 tablet by ity of 00:00: 04:59 mouth 2 [place] 00 :00 (two) Medical times Platter daily with meals for 28 days. aspirin 325 2021-2021- No [id number] 325mg Take 1 Univers mg tablet 09-29 4106 tablet by ity of 00:00: 04:59 mouth 2 [place] 00 :00 (two) Medical times Platter daily with meals for 28 days. ARIPiprazol 0 Yes 10mg Take 10 mg Univers e 10 mg 6-09 by mouth ity of tablet 15:58: daily. [address] busPIRone 2021-0 Yes 15mg Take 15 mg Un you 15 mg 6-09 by mouth ity of tablet 15:58: as needed. [address] omeprazole 2021-0 Yes 20mg Take 20 mg U nivers 20 mg 6-09 by mouth ity of tablet 15:58: daily. [address] ARIPiprazol 2021-0 Yes 10mg Take 10 mg Univers e 10 mg 6-09 by mouth ity of tablet 15:58: daily. [address] busPIRone 2021-0 Yes 15mg Take 15 mg Un you 15 mg 6-09 by mouth ity of tablet 15:58: as needed. [address] omeprazole 2021-0 Yes 20mg Take 20 mg U nivers 20 mg 6-09 by mouth ity of tablet 15:58: daily. [place] 03 Medical Branch ARIPiprazol 0 Yes 10mg Take 10 mg Univers e 10 mg 6-09 by mouth ity of tablet 15:58: daily. [place] [address] Medical Branch busPIRone 2021-0 Yes 15mg Take 15 mg Un you 15 mg 6-09 by mouth ity of tablet 15:58: as needed. [place] [address] Medical Branch omeprazole 2021-0 Yes 20mg Take 20 mg U nivers 20 mg 6-09 by mouth ity of tablet 15:58: daily. [place] [address] Medical Branch traZODone 2021-0 Yes 100mg Take [...] 09/07/21 at 2030, Routine lipase-prot 0 Yes [id number] 1{capsu Take 1 Univers ease-amylas 5-27 le} capsule by it y of e 00:00: mouth 3 [place] 12,000-38,0 00 (three) Medic al 00 -60,000 times Branch unit daily with capsule meals. psyllium Yes [id number] 1{packe Take 1 Univers husk 3.4 5-27 t} Packet by ity of gram oral 00:00: mouth 2 [place] powder 00 (two) Medical packet times Branch daily. sucralfate Yes [id number] 1g Take 1 U nivers 1 gram 5-27 tablet by ity of tablet 00:00: mouth [place] 00 before Medical meals and Branch at bedtime. ursodioL Yes [id number] 500mg Take 1 Un you 500 mg 5-27 tablet by ity of tablet 00:00: mouth 2 [place] 00 (two) Medical times Branch daily. dicyclomine Yes [id number] 10mg Take 1 Univers 10 mg 5-27 capsule by ity of capsule 00:00: mouth 3 [place] 00 (three) Medical times Branch daily. proMETHazin Yes [id number] 12.5mg Take 0.5 Univers e 25 mg [...] 7-10). Indication s: chronic pain pantoprazol Yes [id number] 40mg Take 1 Univers e 40 mg EC 5-27 tablet by ity of tablet 00:00: mouth [place] 00 daily. Medical Branch lipase-prot Yes [id number] 1{capsu Take 1 Univers ease-amylas 5-27 le} capsule by it y of e 00:00: mouth 3 [place] 12,000-38,0 00 (three) Medic al 00 -60,000 times Branch unit daily with capsule meals. psyllium Yes [id number] 1{packe Take 1 Univers husk 3.4 5-27 t} Packet by ity of gram oral 00:00: mouth 2 [place] powder 00 (two) Medical packet times Branch daily. sucralfate Yes [id number] 1g Take 1 U nivers 1 gram 5-27 tablet by ity of tablet 00:00: mouth [place] 00 before Medical meals and Branch at bedtime. ursodioL Yes [id number] 500mg Take 1 Un you 500 mg 5-27 tablet by ity of tablet 00:00: mouth 2 [place] 00 (two) Medical times Branch daily. dicyclomine Yes [id number] 10mg Take 1 Univers 10 mg 5-27 capsule by ity of capsule 00:00: mouth 3 [place] 00 (three) Medical times Branch daily. proMETHazin Yes [id number] 12.5mg Take 0.5 Univers e 25 mg 5-27 tablets by ity of tablet 00:00: mouth [place] 00 every 6 Medical (six) Branch hours as needed for Nausea and Vomiting (N/V). HYDROcodone Yes [id number] 1{tbl} Take 1 Un oyu -acetaminop 5-27 tablet by ity of hen 7.5-325 00:00: mouth 2 [place] mg per 00 (two) Medical tablet times Branch daily as needed (Pain scal 7-10). Indication s: chronic pain pantoprazol Yes [id number] 40mg Take 1 [facility] e 40 mg EC 5-27 tablet by ity of tablet 00:00: mouth [place] 00 daily. Medical Branch lipase-prot Yes [id number] 1{capsu Take 1 [facility] ease-amylas 5-27 le} capsule by it y of e 00:00: mouth 3 [place] 12,000-38,0 00 (three) Medic al 00 -60,000 times Branch unit daily with capsule meals. psyllium 2021-0 Yes [id number] 1{packe Take 1 [facility] husk 3.4 5-27 t} Packet by ity of gram oral 00:00: mouth 2 [place] powder 00 (two) Medical packet times Branch daily. ursodioL 2021-0 Yes [id number] 500mg Take 1 [facility] 500 mg 5-27 tablet by ity of tablet 00:00: mouth 2 [place] 00 (two) Medical times Branch daily. dicyclomine 2021-0 Yes [id number] 10mg Take 1 [facility] 10 mg 5-27 capsule by ity of capsule 00:00: mouth 3 [place] 00 (three) Medical times Branch daily. proMETHazin 0 Yes [id number] 12.5mg Take 0.5 Univers e 25 mg [...] Indication s: chronic pain lipase-prot 2021-0 Yes [id number] 1{capsu Take 1 [facility] ease-amylas 5-27 le} capsule by it y of e 00:00: mouth 3 [place] 12,000-38,0 00 (three) Medic al 00 -60,000 times Branch unit daily with capsule meals. psyllium 2021-0 Yes [id number] 1{packe Take 1 [facility] husk 3.4 5-27 t} Packet by ity of gram oral 00:00: mouth 2 [place] powder 00 (two) Medical packet times Branch daily. ursodioL 2021-0 Yes [id number] 500mg Take 1 Un you 500 mg 5-27 tablet by ity of tablet 00:00: mouth 2 [place] 00 (two) Medical times Branch daily. dicyclomine 2021-0 Yes [id number] 10mg Take 1 [facility] 10 mg 5-27 capsule by ity of capsule 00:00: mouth 3 [place] 00 (three) Medical times Branch daily. proMETHazin Yes [id number] 12.5mg Take 0.5 Univers e 25 mg [...] Indication s: chronic pain lipase-prot 2021-0 Yes [id number] 1{capsu Take 1 [facility] ease-amylas 5-27 le} capsule by it y of e 00:00: mouth 3 [place] 12,000-38,0 00 (three) Medic al 00 -60,000 times Branch unit daily with capsule meals. psyllium Yes [id number] 1{packe Take 1 [facility] husk 3.4 5-27 t} Packet by ity of gram oral 00:00: mouth 2 [place] powder 00 (two) Medical packet times Branch daily. ursodioL 0 Yes [id number] 500mg Take 1 Un you 500 mg 5-27 tablet by ity of tablet 00:00: mouth 2 [place] 00 (two) Medical times Branch daily. dicyclomine 0 Yes [id number] 10mg Take 1 [facility] 10 mg 5-27 capsule by ity of capsule 00:00: mouth 3 [place] 00 (three) Medical times Branch daily. proMETHazin 2021-0 Yes [id number] 12.5mg Take 0.5 Univers e 25 mg [...] Indication s: chronic pain lipase-prot 2021-0 Yes [id number] 1{capsu Take 1 [facility] ease-amylas 5-27 le} capsule by it y of e 00:00: mouth 3 [place] 12,000-38,0 00 (three) Medic al 00 -60,000 times Branch unit daily with capsule meals. psyllium 0 Yes [id number] 1{packe Take 1 [facility] husk 3.4 5-27 t} Packet by ity of gram oral 00:00: mouth 2 [place] powder 00 (two) Medical packet times Branch daily. ursodioL 0 Yes [id number] 500mg Take 1 Un you 500 mg 5-27 tablet by ity of tablet 00:00: mouth 2 [place] 00 (two) Medical times Branch daily. dicyclomine 0 Yes [id number] 10mg Take 1 [facility] 10 mg 5-27 capsule by ity of capsule 00:00: mouth 3 [place] 00 (three) Medical times Branch daily. proMETHazin Yes [id number] 12.5mg Take 0.5 Univers e 25 mg [...] Indication s: chronic pain lipase-prot 2021-0 Yes [id number] 1{capsu Take 1 [facility] ease-amylas 5-27 le} capsule by it y of e 00:00: mouth 3 [place] 12,000-38,0 00 (three) Medic al 00 -60,000 times Branch unit daily with capsule meals. psyllium 2021- Yes [id number] 1{packe Take 1 [facility] husk 3.4 5-27 t} Packet by ity of gram oral 00:00: mouth 2 [place] powder 00 (two) Medical packet times Branch daily. ursodioL 2021-0 Yes [id number] 500mg Take 1 Un you 500 mg 5-27 tablet by ity of tablet 00:00: mouth 2 [place] 00 (two) Medical times Branch daily. dicyclomine 2021-0 Yes [id number] 10mg Take 1 [facility] 10 mg 5-27 capsule by ity of capsule 00:00: mouth 3 [place] 00 (three) Medical times Branch daily. proMETHazin 2021-0 Yes [id number] 12.5mg Take 0.5 Univers e 25 mg [...] Indication s: chronic pain lipase-prot 0 Yes [id number] 1{capsu Take 1 [facility] ease-amylas 5-27 le} capsule by it y of e 00:00: mouth 3 [place] 12,000-38,0 00 (three) Medic al 00 -60,000 times Branch unit daily with capsule meals. psyllium Yes [id number] 1{packe Take 1 [facility] husk 3.4 5-27 t} Packet by ity of gram oral 00:00: mouth 2 [place] powder 00 (two) Medical packet times Branch daily. ursodioL 0 Yes [id number] 500mg Take 1 Un you 500 mg 5-27 tablet by ity of tablet 00:00: mouth 2 [place] 00 (two) Medical times Branch daily. dicyclomine 0 Yes [id number] 10mg Take 1 [facility] 10 mg 5-27 capsule by ity of capsule 00:00: mouth 3 [place] 00 (three) Medical times Branch daily. proMETHazin 0 Yes [id number] 12.5mg Take 0.5 Univers e 25 mg [...] Indication s: chronic pain lipase-prot 2021-0 Yes [id number] 1{capsu Take 1 [facility] ease-amylas 5-27 le} capsule by it y of e 00:00: mouth 3 [place] 12,000-38,0 00 (three) Medic al 00 -60,000 times Branch unit daily with capsule meals. psyllium Yes [id number] 1{packe Take 1 [facility] husk 3.4 5-27 t} Packet by ity of gram oral 00:00: mouth 2 [place] powder 00 (two) Medical packet times Branch daily. ursodioL Yes [id number] 500mg Take 1 Un you 500 mg 5-27 tablet by ity of tablet 00:00: mouth 2 [place] 00 (two) Medical times Branch daily. dicyclomine Yes [id number] 10mg Take 1 [facility] 10 mg 5-27 capsule by ity of capsule 00:00: mouth 3 [place] 00 (three) Medical times Branch daily. proMETHazin Yes [id number] 12.5mg Take 0.5 Univers e 25 mg [...] Indication s: chronic pain lipase-prot 0 Yes [id number] 1{capsu Take 1 [facility] ease-amylas 5-27 le} capsule by it y of e 00:00: mouth 3 [place] 12,000-38,0 00 (three) Medic al 00 -60,000 times Branch unit daily with capsule meals. psyllium 2021-0 Yes [id number] 1{packe Take 1 [facility] husk 3.4 5-27 t} Packet by ity of gram oral 00:00: mouth 2 [place] powder 00 (two) Medical packet times Branch daily. ursodioL 2021-0 Yes [id number] 500mg Take 1 Un you 500 mg 5-27 tablet by ity of tablet 00:00: mouth 2 [place] 00 (two) Medical times Branch daily. dicyclomine 0 Yes [id number] 10mg Take 1 [facility] 10 mg 5-27 capsule by ity of capsule 00:00: mouth 3 [place] 00 (three) Medical times Branch daily. proMETHazin 2021-0 Yes [id number] 12.5mg Take 0.5 Univers e 25 mg [...] Indication s: chronic pain lipase-prot 0 Yes [id number] 1{capsu Take 1 [facility] ease-amylas 5-27 le} capsule by it y of e 00:00: mouth 3 [place] 12,000-38,0 00 (three) Medic al 00 -60,000 times Branch unit daily with capsule meals. psyllium Yes [id number] 1{packe Take 1 [facility] husk 3.4 5-27 t} Packet by ity of gram oral 00:00: mouth 2 [place] powder 00 (two) Medical packet times Branch daily. ursodioL 0 Yes [id number] 500mg Take 1 Un you 500 mg 5-27 tablet by ity of tablet 00:00: mouth 2 [place] 00 (two) Medical times Branch daily. dicyclomine 0 Yes [id number] 10mg Take 1 [facility] 10 mg 5-27 capsule by ity of capsule 00:00: mouth 3 [place] 00 (three) Medical times Branch daily. proMETHazin 0 Yes [id number] 12.5mg Take 0.5 [facility] e 25 mg [...] Indication s: chronic pain lipase-prot 2021-0 Yes [id number] 1{capsu Take 1 [facility] ease-amylas 5-27 le} capsule by it y of e 00:00: mouth 3 [place] 12,000-38,0 00 (three) Medic al 00 -60,000 times Branch unit daily with capsule meals. psyllium 0 Yes [id number] 1{packe Take 1 [facility] husk 3.4 5-27 t} Packet by ity of gram oral 00:00: mouth 2 [place] powder 00 (two) Medical packet times Branch daily. ursodioL 2021-0 Yes [id number] 500mg Take 1 Un you 500 mg 5-27 tablet by ity of tablet 00:00: mouth 2 [place] 00 (two) Medical times Branch daily. dicyclomine 0 Yes [id number] 10mg Take 1 [facility] 10 mg 5-27 capsule by ity of capsule 00:00: mouth 3 [place] 00 (three) Medical times Branch daily. proMETHazin 0 Yes [id number] 12.5mg Take 0.5 [facility] e 25 mg [...] Indication s: chronic pain lipase-prot 2021-0 Yes [id number] 1{capsu Take 1 [facility] ease-amylas 5-27 le} capsule by it y of e 00:00: mouth 3 [place] 12,000-38,0 00 (three) Medic al 00 -60,000 times Branch unit daily with capsule meals. psyllium 2021-0 Yes [id number] 1{packe Take 1 [facility] husk 3.4 5-27 t} Packet by ity of gram oral 00:00: mouth 2 [place] powder 00 (two) Medical packet times Branch daily. ursodioL 2021-0 Yes [id number] 500mg Take 1 Un you 500 mg 5-27 tablet by ity of tablet 00:00: mouth 2 [place] 00 (two) Medical times Branch daily. dicyclomine 2021-0 Yes [id number] 10mg Take 1 [facility] 10 mg 5-27 capsule by ity of capsule 00:00: mouth 3 [place] 00 (three) Medical times Branch daily. proMETHazin 2021-0 Yes [id number] 12.5mg Take 0.5 [facility] e 25 mg [...] Indication s: chronic pain psyllium 2021-0 Yes [id number] 1{packe Take 1 [facility] husk 3.4 5-27 t} Packet by ity of gram oral 00:00: mouth 2 [place] powder 00 (two) Medical packet times Branch daily. dicyclomine 2021-0 Yes [id number] 10mg Take 1 [facility] 10 mg 5-27 capsule by ity of capsule 00:00: mouth 3 [place] (three) Medical times Branch daily. proMETHazin 2021-0 Yes [id number] 12.5mg Take 0.5 [facility] e 25 mg [...] Indication s: chronic pain psyllium 2022-0 Yes [id number] 1{packe Take 1 [facility] husk 3.4 5-27 t} Packet by ity of gram oral 00:00: mouth 2 [place] powder 00 (two) Medical packet times Branch daily. dicyclomine 2022-0 Yes [id number] 10mg Take 1 [facility] 10 mg 5-27 capsule by ity of capsule 00:00: mouth 3 [place] 00 (three) Medical times Branch daily. proMETHazin 2021-0 Yes [id number] 12.5mg Take 0.5 [facility] e 25 mg [...] Indication s: chronic pain psyllium 2021-0 Yes [id number] 1{packe Take 1 [facility] husk 3.4 5-27 t} Packet by ity of gram oral 00:00: mouth 2 [place] powder 00 (two) Medical packet times Branch daily. dicyclomine 0 Yes [id number] 10mg Take 1 [facility] 10 mg 5-27 capsule by ity of capsule 00:00: mouth 3 (three) Medical times Branch daily. proMETHazin 2021-0 Yes [id number] 12.5mg Take 0.5 [facility] e 25 mg [...] Indication s: chronic pain psyllium 2021-0 Yes [id number] 1{packe Take 1 [facility] husk 3.4 5-27 t} Packet by ity of gram oral 00:00: mouth 2 [place] powder 00 (two) Medical packet times Branch daily. proMETHazin 2021-0 Yes [id number] 12.5mg Take 0.5 [facility] e 25 mg 5-27 tablets by ity of tablet 00:00: mouth [place] 00 every 6 Medical (six) Branch hours as needed for Nausea and Vomiting (N/V). psyllium 2021-0 2023- No [id number] 1{packe Take 1 [facility] husk 3.4 5-27 -12 t} Packet by ity o f gram oral 00:00: 00:00 mouth 2 [place] powder 00 :00 (two) Medical packet times Branch daily. proMETHazin 2022- No [id number] 12.5mg Take 0.5 [facility] e 25 mg 5-27 -12 tablets by ity o f tablet 00:00: 00:00 mouth [place] 00 :00 every 6 Medical (six) Branch hours as needed for Nausea and Vomiting (N/V). dicyclomine 2022- No [id number] 10mg Take 1 [facility] 10 mg 5-27 [...] Indication s: chronic pain dicyclomine 2022- No [id number] 10mg Take 1 [facility] 10 mg 5-27 -11 capsule by ity of capsule 00:00: 00:00 mouth 3 [place] 00 :00 (three) Medical times Branch daily. HYDROcodone 2022- No [id number] 1{tbl} Take 1 U nivers -acetaminop 5-27 01-11 tablet by it y of hen 7.5-325 00:00: 00:00 mouth 2 [place] mg per 00 :00 (two) Medical tablet times Branch daily as needed (Pain scal 7-10). Indication s: chronic pain lipase-prot 2021- No [id number] 1{capsu Take 1 [facility] ease-amylas 5-27 10-25 le} capsule by i ty of e 00:00: 00:00 mouth 3 [place] 12,000-38,0 00 :00 (three) Medic al 00 -60,000 times Branch unit daily with capsule meals. ursodioL 2021- No [id number] 500mg Take 1 U nivers 500 mg 5-27 10-25 tablet by ity of tablet 00:00: 00:00 mouth 2 [place] 00 :00 (two) Medical times Branch daily. sucralfate 2021- No [id number] 1g Take 1 Univers 1 gram 5-27 06-09 tablet by ity of tablet 00:00: 00:00 mouth [place] 00 :00 before Medical meals and Branch at bedtime. pantoprazol 2021- No [id number] 40mg Take 1 [facility] e 40 mg EC 5-27 06-09 tablet by ity of tablet 00:00: 00:00 mouth [place] 00 :00 daily. Medical Branch sucralfate 2021- No [id number] 1g Take 1 [facility] 1 gram 5-27 06-09 tablet by ity of tablet 00:00: 00:00 mouth [place] 00 :00 before Medical meals and Branch at bedtime. pantoprazol 2021- No [id number] 40mg Take 1 [facility] e 40 mg EC 5-27 06-09 tablet by ity of tablet 00:00: 00:00 mouth [place] 00 :00 daily. Medical Branch ursodioL 2021- No [id number] 500mg Take 1 U nivers 500 mg 5-27 05-27 tablet by ity of tablet 00:00: 00:00 mouth 2 [place] 00 :00 (two) Medical times Branch daily. psyllium 2021- No [id number] 1{packe Take 1 [facility] husk 3.4 5-27 05-27 t} Packet by ity o f gram oral 00:00: 00:00 mouth 2 [place] powder 00 :00 (two) Medical packet times Branch daily. lipase-prot 2021- No [id number] 1{capsu Take 1 [facility] ease-amylas 5-27 05-27 le} capsule by i ty of e 00:00: 00:00 mouth 3 [place] 12,000-38,0 00 :00 (three) Medic al 00 -60,000 times Branch unit daily with capsule meals. dicyclomine 2021- No [id number] 10mg Take 1 [facility] 10 mg 5-27 05-27 capsule by ity of capsule 00:00: 00:00 mouth 3 [place] 00 :00 (three) Medical times Branch daily. proMETHazin 2021- No [id number] 12.5mg Take 0.5 Univers e 25 mg [...] Indication s: chronic pain sucralfate 2021- No [id number] 1g Take 1 Univers 1 gram -08 09- tablet by ity of tablet 00:00: 00:00 mouth [place] 00 :00 before Medical meals and Branch at bedtime. pantoprazol 2021- No [id number] 40mg Take 1 Univers e 40 mg [...] Nausea and Vomiting (N/V) gadobenate 2021- No [id number] .2mL/kg 15.7 mL Univers dimeglumine 09-06 (0.2 [...] 09-04 Oral, ity of imeth 22:31: Q6HPRN, [place] (MAALOX 21 Starting Medical PLUS / on Mon Branch MAG-AL 09/04/21 at PLUS) 1731, 200-200-20 Until mg/5 mL Discontinu suspension ed, 30 mL Routine, Indigestio n, Heartburn psyllium 0 Yes 1{packe 1 Packet, U nivers husk 09-04 t} Oral, BID, ity of (METAMUCIL 01:00: First dose [place] (SUGAR 00 on [facility] FREE)) 3.4 09/03/21 at [facility] gram oral 1999, powder Until packet 1 Discontinu Packet ed, Routine HYDROcodone 0 2021- No 10mg 10 mg, Uni vers -acetaminop 09-04 Oral, BID, i ty of hen (HYCET) 01:00: 22:54 First dose [place] 7.5-325 00 :32 (after Medical mg/15 mL [...] 09-03 Oral, ity of (TYLENOL) 14:40: Q6HPRN, [place] tablet 325 10 Starting Medic al mg on [place] Branch 09/03/21 at 0940, Until Discontinu ed, Routine, Pain (scale 1-3), Pain (scale 4-6) FENTanyl PF 0 No 50ug 50 mcg, Un you (SUBLIMAZE 09-03 Slow IV ity o f (PF)) 14:39: 16:17 Push, [place] injection 39 :20 Q6HPRN, Medical 50 mcg Starting Branch on [place] 09/03/21 at 0939, Until [place] 09/03/21 at 1117, Routine, Pain (scale 7-10) polyethylen 0 Yes 17g 17 g, Unive rs e glycol 09-02 Oral, ity of 3350 powder 14:00: DAILY, [place] 17 g 00 First dose Medical on [facility] 09/02/21 at 0900, Until Discontinu ed, Routine fenofibrate 0 Yes 134mg 134 mg, Un you micronized 09-02 Oral, ity of (LOFIBRA) 14:00: DAILY, [place] capsule 134 00 First dose Me dical mg on [facility] 09/02/21 at 0900, Until Discontinu ed losartan Yes 100mg 100 mg, Unive rs (COZAAR) 09-02 Oral, ity of tablet 100 14:00: DAILY, [place] mg 00 First dose Medical on [facility] 09/02/21 at 0900, Until Discontinu ed, Routine heparin 0 Yes 5000U 5,000 Univers (porcine) 09-02 Units, ity of injection 13:00: Subcutaneo [place] 5,000 Units 00 us, Q12H, Med ical First dose Branch on [facility] 09/02/21 at 0800, Until Discontinu ed, Routine sennosides 0 Yes 8.6mg 8.6 mg, Uni vers (SENOKOT) 09-02 Oral, BID, ity of tablet 8.6 13:00: First dose [place] mg 00 on [facility] 09/02/21 at Branch 0800, Until Discontinu ed, Routine lipase-prot 2022-0 Yes 1{capsu 1 capsule, Univers ease-amylas 09-02 le} Oral, TID ity of e (CREON) 13:00: MEALS, [place] 12,000-38,0 00 First dose Me dical 00 -60,000 on [facility] unit 09/02/21 at capsule 1 0800, capsule Until Discontinu ed, Routine ursodioL Yes 500mg 500 mg, Unive rs (EUGENE) 09-02 Oral, BID, ity of tablet 500 13:00: First dose [place] mg 00 on [facility] 09/02/21 at Branch 0800, Until Discontinu ed, Routine gabapentin Yes 300mg 300 mg, Uni vers (NEURONTIN) 09-02 Oral, BID, it y of capsule 300 13:00: First dose [place] mg 00 on [facility] 09/02/21 at Branch 0800, Until Discontinu ed, Routine HYDROcodone 2021- No 7.5mg 7.5 mg, U nivers -acetaminop 09-02 Oral, BID, i ty of hen (HYCET) 13:00: 16:17 First dose [place] 7.5-325 00 :[address] [facility] Medical mg/15 mL 09/02/21 at [facility] h solution 0800, 7.5 mg Until Discontinu ed FENTanyl PF 2021- No 25ug 25 mcg, Un you (SUBLIMAZE 09-02 Slow IV ity o f (PF)) 12:56: 12:17 Push, [place] injection 31 :41 Q6HPRN, Medical 25 mcg Starting Branch on [facility] 09/02/21 at 0756, Until [place] 09/03/21 at 0717, Routine, Pain (scale 7-10) traMADoL 0 2021- No 50mg 50 mg, Univer s (ULTRAM) 09-02 Oral, ity of tablet 50 12:55: 12:17 Q8HPRN, [place] mg 47 :33 Starting Medical on [facility] Branch 09/02/21 at 0755, Until [...] on Sat Branch 09/01/21 at 2219, Until 5/21/22 at 0756, Routine, Pain (scale 4-6) proMETHazin [...] [place] injection 4 00 :00 dose, On [facility] Fri Branch 09/01/21 at 1600, [place] morpHINE [...] s mg 00 :00 dose, On Medical [place] Branch 08/27/21 at 1545, Routine maalox:diph 2021- No 15mL 15 mL, Uni vers enhydrAMINE 5-15 05-15 Oral, ity of :lidocaine 20:00: 18:58 ONCE, 1 [place] 2 % viscous 00 :00 dose, On Medi brandy 1:1:1 [place] (FIRST-MOUT 08/27/21 at [facility]) 1500, oral Routine suspension 15 [...] dose, On Medi brandy mg [facility] 08/27/21 at 1215, [place] NaCl 0.9% 2021- No 1000mL at 999 Uni vers (NS) bolus 08-27 05-15 mL/hr, ity of infusion 17:15: 18:59 1,000 mL, [place] 1,000 mL 00 :00 IV Medical Infusion, Branch ONCE, 1 dose, On [place] 08/27/21 at 1215, [place] iopamidol 2021- No [id number] 100mL 100 mL, Univers (ISOVUE 08-27 05-15 Intravenou ity o f 370-500 mL) 16:45: 16:44 s, ONCE, 1 [place] injection 00 :00 dose, On Medica l 100 mL [facility] 08/27/21 at 1145, Routine traZODone [...] Until Discontinu ed, Routine proMETHazin 2021-0 Yes [id number] 25mg Take 1 Univers e 25 mg 4-16 tablet by ity of tablet 00:00: mouth [place] 00 every 4 Medical (four) Branch hours as needed for Nausea and Vomiting (N/V). proMETHazin 2021-0 Yes [id number] 25mg Take 1 Univers e 25 mg 4-16 tablet by ity of tablet 00:00: mouth [place] 00 every 4 Medical (four) Branch hours as needed for Nausea and Vomiting (N/V). proMETHazin 2021-0 Yes [id number] 25mg Take 1 Univers e 25 mg 4-16 tablet by ity of tablet 00:00: mouth [place] 00 every 4 Medical (four) Branch hours as needed for Nausea and Vomiting (N/V). proMETHazin 2021-0 2021- No [id number] 25mg Take 1 Univers e 25 mg 4-16 05-27 tablet by ity of tablet 00:00: 00:00 mouth [place] 00 :00 every 4 Medical (four) Branch hours as needed for Nausea and Vomiting (N/V). docusate 2021- No [id number] 100mg Take 1 Univers 100 mg 4-16 05-17 capsule by ity of capsule 00:00: 04:59 mouth [place] 00 :00 daily for Medical 30 days. Branch hydrALAZINE 2021- No [id number] 50mg Take 1 Univers 50 mg 4-16 05-17 tablet by ity of tablet 00:00: 04:59 mouth 2 [place] 00 :00 (two) Medical times Branch daily for 30 days. docusate 2021- No [id number] 100mg Take 1 Univers 100 mg 4-16 05-17 capsule by ity of capsule 00:00: 04:59 mouth [place] 00 :00 daily for Medical 30 days. Branch hydrALAZINE 2021- No [id number] 50mg Take 1 Univers 50 mg 4-16 05-17 tablet by ity of tablet 00:00: 04:59 mouth 2 [place] 00 :00 (two) Medical times Branch daily for 30 days. docusate No [id number] 100mg Take 1 Univers 100 mg 4-16 05-17 capsule by ity of capsule 00:00: 04:59 mouth [place] 00 :00 daily for Medical 30 days. Branch hydrALAZINE 2021- No [id number] 50mg Take 1 Univers 50 mg 4-16 05-17 tablet by ity of tablet 00:00: 04:59 mouth 2 [place] 00 :00 (two) Medical times Branch daily for 30 days. HYDROcodone No [id number] 1{tbl} Take 1 U [...] No 30mL 30 mL, Unive rs (CEPHULAC) 07-28 Oral, ity of solution 30 15:30: 15:07 [...] dose [place] mg 00 on Sat [facility] 07/25/21 at Branch 2100, Until Discontinu ed, Routine divalproex Yes 500mg 500 mg, Uni vers (DEPAKOTE) 4-13 Oral, ity of EC tablet 01:00: Q12H, [place] 500 mg 00 First dose Medical on Sat/12/22 at 2000, Until Discontinu ed LORazepam 2021- [...] mg 46 TIDPRN, Medical Starting Branch on [facility] 07/25/21 at 1849, Until Discontinu ed, Routine, [...] Routine sennosides- 2021- No 1{tbl} 1 tablet, [facility] docusate 07-2515 Oral, ity of sodium 16:30: 21:16 DAILY, [place] (SENOKOT-S) 00 :00 First dose Me dical 8.6-50 mg on [place] per tablet 07/25/21 at 1 tablet 1130, [...] First dose [place] mg 00 on [facility] 07/24/21 at Branch 2100, Until Discontinu ed, Routine morpHINE 2021- No 4mg 4 mg, Slow Un you injection 07-25 IV Push, ity of mg 02:00: 17:59 Q3HPRN, [place] 00 :47 Starting Medical on [facility] 07/24/21 at 2100, Until Sat07/25/21 at 1259, Routine, Pain (scale 7-10) proMETHazin Yes 12.5mg 12.5 mg, Univers e 07-24 IV ity of (PHENERGAN) 23:52: Piggyback, [place] 12.5 mg in 45 Q4HPRN, Medica l NaCl 0.9% Starting Branch (NS) 50 mL on [facility] IV 07/24/21 at piggyback 1852, Until Discontinu ed, Routine, Nausea and Vomiting (N/V) morpHINE 0 2021- No 4mg 4 mg, Slow Un you injection 07-2411 IV Push, ity of mg 19:45: 23:44 Q3HPRN, [place] 00 :00 Starting Medical on [facility] 07/24/21 at 1445, Until Sat07/24/21 at 1844, Routine, Pain (scale 7-10) SERTraline Yes 25mg 25 mg, Unive rs (ZOLOFT) 411 Oral, ity of tablet 25 14:00: DAILY, [place] mg 00 First dose Medical on [facility] 07/24/21 at 0900, Until Discontinu ed, Routine losartan Yes 100mg 100 mg, Unive rs (COZAAR) 11 Oral, ity of tablet 100 14:00: DAILY, [place] mg 00 First dose Medical on Sat [place] 07/24/21 at 0900, Until Discontinu ed, Routine fenofibrate Yes 134mg 134 mg, Un you micronized 07-24 Oral, ity of (LOFIBRA) 14:00: DAILY, [place] capsule 134 00 First dose Me dical mg on [facility] 07/24/21 at 0900, Until Discontinu ed enoxaparin Yes 30mg 30 mg, Unive rs (LOVENOX) 07-24 Subcutaneo ity of injection 14:00: us, DAILY, [place] 30 mg 00 First dose Medical on [facility] 07/24/21 at 0900, Until Discontinu ed, Routine busPIRone Yes 10mg 10 mg, Univer s (BUSPAR) 07-24 Oral, BID, ity o f tablet 10 13:00: First dose [place] mg 00 on [facility] 07/24/21 at Branch 0800, Until Discontinu ed, Routine gabapentin Yes 300mg 300 mg, Uni vers (NEURONTIN) 07-24 Oral, BID, it y of capsule 300 13:00: First dose [place] mg 00 on [facility] 07/24/21 at Branch 0800, Until Discontinu ed, [...] IV Push, ity of (PF)) 04:26: Q6HPRN, [place] injection 4 35 Starting Medi brandy mg on [facility] 07/23/21 at 2326, Until Discontinu ed, [place], Nausea and Vomiting (N/V) FENTanyl PF No 75ug 75 mcg, Un you (SUBLIMAZE 07-24 Slow IV ity o f (PF)) 00:15: 23:11 Push, [place] injection 00 :00 ONCE, 1 Medical 75 mcg dose, On Branch [place] 07/23/21 at 1915, STAT iopamidol 2021- No [id number] 100mL 100 mL, Univers (ISOVUE 07-24 Intravenou ity o f 370-500 mL) 00:00: 00:00 s, ONCE, 1 [place] injection 00 :00 dose, On Medica l 100 mL [facility] 07/23/21 at 1900, Routine morpHINE 2021- No 4mg 4 mg, Slow Un you injection 4 07-23 IV Push, ity of mg 23:57: 19:32 Q4HPRN, [place] 08 :42 Starting Medical on [facility] 07/23/21 at 1857, Until 07/24/21 at 1432, Routine, Pain (scale 7-10) HYDROcodone 2021- No 1{tbl} 1 tablet, Univers -acetaminop 07-23 Oral, ity of hen (NORCO 23:57: 23:56 Q6HPRN, [place] 5) 5-325 mg 06 :06 Starting Medi brandy tablet 1 on [facility] tablet 07/23/21 at 1857, Until 07/25/21 at 1856, Routine, Pain (scale 4-6) acetaminoph Yes 650mg 650 mg, Un you en 10 Oral, ity of (TYLENOL) 23:57: Q6HPRN, [place] tablet 650 04 Starting Medic al mg on [facility] 07/23/21 at 1857, Until Discontinu ed, Routine, Pain (scale 1-3) haloperidol 2021-2021- No 2.5mg 2.5 mg, U nivers lactate 4-10 04-10 Intravenou ity o f (HALDOL) 23:30: 22:31 s, ONCE, 1 [place] 00 :00 dose, On Medica l 2.5 mg [facility] 07/23/21 at 1830, STAT ondansetron 2021- No 4mg 4 mg, Slow Univers (ZOFRAN 07-23-10 IV Push, ity of (PF)) 22:00: 21:22 ONCE, 1 [place] injection 4 00 :00 dose, On Medi brandy mg [facility] 07/23/21 at 1700, [place] FENTanyl PF 2021- No 75ug 75 mcg, Un you (SUBLIMAZE 07-23-10 Slow IV ity o f (PF)) 22:00: 21:24 Push, [place] injection 00 :00 ONCE, 1 Medical 75 mcg dose, On [facility] 07/23/21 at 1700, Routine NaCl 0.9% 2021- No 1000mL at 999 Uni vers (NS) bolus 07-23-10 mL/hr, ity of infusion 22:00: 23:41 1,000 mL, [place] 1,000 mL 00 :00 IV Medical Infusion, Branch ONCE, 1 dose, On [place] 07/23/21 at 1700, [place] water for Yes [...] lactated 2021-0 202- No 1000mL at 42 [facility] rs ringers IV 07-04 03-22 mL/hr, ity of infusion 16:15: 16:04 1,000 mL, [place] 1,000 mL 00 :00 IV Medical Infusion, Branch ONCE, 1 dose, On Sat07/04/21 at 1115, Routine, DSU Pre-op lactated 2021-0 202- No 1000mL at 42 [facility] rs ringers IV 07-04-22 mL/hr, ity of infusion 16:15: 16:04 1,000 mL, [place] 1,000 mL 00 :00 IV Medical Infusion, Branch ONCE, 1 dose, On Sat07/04/21 at 1115, Routine, DSU Pre-op traZODone 2021-0 Yes 100mg Take 100 Uni vers 100 mg 3-22 mg by ity of tablet 13:27: mouth at [place] [address] bedtime. Medical Branch losartan 2021-0 Yes 100mg Take 100 Univ ers 100 mg 3-22 mg by ity of tablet 13:27: mouth [place] [address] daily. Medical Branch gabapentin 2021-0 Yes 300mg Take 300 Un you 300 mg 3-22 mg by ity of capsule 13:27: mouth 2 [place] [address] (two) Medical times Branch daily. proMETHazin 2021-0 Yes 25mg Take 25 mg Univers e 25 mg 3-22 by mouth ity of tablet 13:27: every 12 [place] [address] (twelve) Medical hours as Branch needed. busPIRone 2021-0 Yes 15mg Take 15 mg Un you 15 mg 3-22 by mouth 3 ity of tablet 13:27: (three) [place] [address] times Medical daily. For Branch anxiety QUEtiapine [...] brandy 1:1:1 Sat Branch ([facility] 06/03/21 at [facility]) 1999, [place] oral suspension 15 mL iopamidol 2021- No [id number] 100mL 100 mL, Univers (ISOVUE 06-04 Intravenou [...] Branch 06/03/21 at 1530, Routine proMETHazin Yes [id number] 25mg Insert 1 Univers e 25 mg 2-19 Suppositor ity of suppository 00:00: [place] 00 rectum Medical every 4 Branch (four) hours as needed for Nausea and Vomiting (N/V), N/V unresponsi ve to Ondansetro n or N/V unresponsi ve to oral antiemetic s. proMETHazin Yes [id number] 25mg Insert 1 Univers e 25 mg 2-19 Suppositor ity of suppository 00:00: [place] 00 rectum Medical every 4 Branch (four) hours as needed for Nausea and Vomiting (N/V), N/V unresponsi ve to Ondansetro n or N/V unresponsi ve to oral antiemetic s. proMETHazin Yes [id number] 25mg Insert 1 Univers e 25 mg 2-19 Suppositor ity of suppository 00:00: y into rectum Medical every 4 Branch (four) hours as needed for Nausea and Vomiting (N/V), N/V unresponsi ve to Ondansetro n or N/V unresponsi ve to oral antiemetic s. proMETHazin Yes [id number] 25mg Insert 1 Univers e 25 mg 2-19 Suppositor ity of suppository 00:00: y into rectum Medical every 4 Branch (four) hours as needed for Nausea and Vomiting (N/V), N/V unresponsi ve to Ondansetro n or N/V unresponsi ve to oral antiemetic s. proMETHazin Yes [id number] 25mg Insert 1 Univers e 25 mg 2-19 Suppositor ity of suppository 00:00: y into rectum Medical every 4 Branch (four) hours as needed for Nausea and Vomiting (N/V), N/V unresponsi ve to Ondansetro n or N/V unresponsi ve to oral antiemetic s. proMETHazin Yes [id number] 25mg Insert 1 Univers e 25 mg 2-19 Suppositor ity of suppository 00:00: y into rectum Medical every 4 Branch (four) hours as needed for Nausea and Vomiting (N/V), N/V unresponsi ve to Ondansetro n or N/V unresponsi ve to oral antiemetic s. proMETHazin Yes [id number] 25mg Insert 1 Univers e 25 mg 2-19 Suppositor ity of suppository 00:00: y into rectum Medical every 4 Branch (four) hours as needed for Nausea and Vomiting (N/V), N/V unresponsi ve to Ondansetro n or N/V unresponsi ve to oral antiemetic s. proMETHazin 2021- No [id number] 25mg Insert 1 Univers e 25 mg [...] ity of mg 07:30: 06:35 ONCE, 1 [place] 00 :00 dose, On Medical 05/22/21 Branch at 0130, STAT ondansetron 2021- No 4mg 4 mg, Slow Univers (ZOFRAN 05-22 IV Push, ity of (PF)) 07:30: 06:35 ONCE, 1 [place] injection 4 00 :00 dose, On Medi brandy mg [facility] 05/22/21 Branch at 0130, [place] iohexol 2021- No [id number] 100mL 100 mL, Univers (OMNIPAQUE 05-22 Intravenou it y of 350 06:15: 06:04 s, ONCE, 1 [place] BULK-100 00 :00 dose, On Medical mL) [facility] 05/22/21 Branch injection at 0015, 100 mL Routine traZODone Yes 100mg Take 100 Uni vers 100 mg 2-06 mg by ity of tablet 23:27: mouth at [place] [address] bedtime. Medical Branch traZODone 0 Yes 100mg Take 100 Uni vers 100 mg 2-06 mg by ity of tablet 23:27: mouth at [place] [address] bedtime. Medical Branch gabapentin 0 Yes 300mg Take 300 Un you 300 mg 2-06 mg by ity of capsule 23:27: mouth 2 [place] 26 (two) Medical times Branch daily. gabapentin Yes 300mg Take 300 Un you 300 mg 2-06 mg by ity of capsule 23:27: mouth 2 [place] 26 (two) Medical times Branch daily. erythromyci [...] 01 daily. Medical Branch montelukast 2021- No [id number] 10mg Take 1 Univers (SINGULAIR) 2-06 tablet by it y of 10 mg 00:00: 05:59 mouth [place] tablet 00 :00 daily for Medical 30 days. Branch montelukast 2021- No [id number] 10mg Take 1 Univers (SINGULAIR) 2-06 tablet by it y of 10 mg 00:00: 05:59 mouth [place] tablet 00 :00 daily for Medical 30 days. Branch montelukast 2021- No [id number] 10mg Take 1 Univers (SINGULAIR) 05-18-06 tablet by it y of 10 mg 00:00: 05:59 mouth [place] tablet 00 :00 daily for Medical 30 days. Branch benzonatate 2021- No [id number] 200mg Take 2 Univers (TESSALON 2-06 14-14 capsules ity o f PERLES) 100 00:00: 05:59 by mouth [place] mg capsule 00 :00 every 8 Medica l (eight) Branch hours for 10 days. benzonatate 2021- No [id number] 200mg Take 2 Univers (TESSALON 2-06 14-14 capsules ity o f PERLES) 100 00:00: 05:59 by mouth [place] mg capsule 00 :00 every 8 Medica l (eight) Branch hours for 10 days. benzonatate 2021- No [id number] 200mg Take 2 Univers (TESSALON 2-06 14-14 capsules ity o f PERLES) 100 00:00: 05:59 by mouth [place] mg capsule 00 :00 every 8 Medica l (eight) Branch hours for 10 days. benzonatate 2021- No [id number] 200mg Take 2 Univers (TESSALON 2-03 02-06 capsules ity o f PERLES) 100 00:00: 00:00 by mouth [place] mg capsule 00 :00 every 8 Medica l (eight) Branch hours for 10 days. montelukast 2021- No [id number] 10mg Take 1 Univers (SINGULAIR) 05-1806 tablet by it y of 10 mg 00:00: 00:00 mouth [place] tablet 00 :00 daily for Medical 30 days. Branch traZODone Yes 100mg Take 100 Uni vers 100 mg 1-03 mg by ity of tablet 10:57: mouth at [place] [address] bedtime. Medical Branch losartan Yes 100mg Take 100 Univ ers 100 mg 1-03 mg by ity of tablet 10:57: mouth [place] [address] daily. Medical Branch gabapentin Yes 300mg Take [...] by ity of tablet 10:57: mouth at [place] [address] bedtime. Medical Branch traZODone Yes 100mg Take 100 Uni vers 100 mg 1-03 mg by ity of tablet 10:57: mouth at [place] [address] bedtime. Medical Branch traZODone Yes 100mg Take 100 Uni vers 100 mg 1-03 mg by ity of tablet 10:57: mouth at [place] [address] bedtime. Medical Branch maalox:diph 15mL 15 mL, Uni vers enhydrAMINE 04-15 Oral, ity of :lidocaine 20:45: 20:38 ONCE, 1 [place] 2 % viscous 00 :00 dose, On Medi brandy 1:1:1 04/15/21 Branch ([facility] at 1445, [facility]) Routine oral suspension 15 mL [...] 04/15/21 at 1445, [place] iopamidol 2021- No [id number] 120mL 120 mL, Univers (ISOVUE 04-15 Intravenou ity o f 370-500 mL) 20:13: 20:14 s, ONCE, 1 [place] injection 00 :00 dose, On Medica l 120 mL 04/15/21 Branch at 1430, Routine famotidine 2021- No [id number] 40mg Take 2 Univers (PEPCID) 20 04-15 tablets by i ty of mg tablet 00:00: 05:59 mouth 2 [place] 00 :[place] (two) Medical times Branch daily for 15 days. proMETHazin 2021- No [id number] 25mg Take 1 Univers e 25 mg 04-15 tablet by ity of tablet 00:00: 05:59 mouth [place] 00 :00 every 6 Medical (six) Branch hours for 7 days. FENTanyl PF 2020-04- No 50ug 50 mcg, Un you (SUBLIMAZE -03 26- Slow IV ity o f (PF)) 03:45: [...] dication: Hypertensi ve Emergency dicyclomine 2020-04 Yes [id number] 20mg 20 mg, Univers (BENTYL) 05-27 Intramuscu ity o f injection 02:00: lar, QID, [place] as 20 mg 00 First dose Medical on Sat Branch 03/25/21 at 2000, Until Discontinu ed, Routine iopamidol 2020-04- No [id number] 120mL 120 mL, Univers (ISOVUE 05-27 Intravenou ity o f 370-500 mL) 01:58: 01:58 s, ONCE, 1 [place] injection 00 :00 dose, On Medica l 120 mL Sat Branch 03/25/21 at 2015, Routine NaCl 0.9% 2020-04- No [id number] 1000mL at 999 Univers (NS) bolus 05-27 mL/hr, ity of infusion 01:30: 03:00 1,000 mL, [place] as 1,000 mL 00 :00 IV Medical Infusion, Branch ONCE, 1 dose, On 03/25/21 at 1930, [place] ondansetron 2020-04- No [id number] 4mg 4 mg, Slow Univers (ZOFRAN 05-27 IV Push, ity of (PF)) 01:30: 01:48 ONCE, 1 [place] injection 4 00 :00 dose, On Medi brandy mg Sat Branch 03/25/21 at 1930, [place] famotidine 2020-04- No [id number] 20mg 20 mg, Univers (PEPCID 05-27 Slow IV ity of (PF)) 01:30: 01:48 Push, [place] injection 00 :00 ONCE, 1 Medical 20 mg dose, On Branch 03/25/21 at 1930, [place] ketorolac 2020-04- No [id number] 30mg 30 mg, U nivers (TORADOL) 05-27 Slow IV ity of injection 01:30: 01:49 Push, [place] 30 mg 00 :00 ONCE, 1 Medical dose, On Branch 03/25/21 at 1930, [place] FENTanyl PF 2020-04 No [id number] 75ug 75 mcg, Univers (SUBLIMAZE 05-27 Slow [...] at 1999, [place] FENTanyl PF 2020-04- No 25ug 25 mcg, Un you (SUBLIMAZE 05-22 Slow IV ity o f (PF)) 02:00: 01:13 Push, [place] injection 00 :00 ONCE, 1 Medical 25 mcg dose, On Branch [facility] 03/20/21 at 2000, STAT diphenhydrA 2020-04 No 12.5mg 12.5 mg, Univers MINE 05-22 Slow IV ity of (BENADRYL) 02:00: 01:13 Push, [place] injection 00 :00 ONCE, 1 Medical 12.5 mg dose, On Branch [facility] 03/20/21 at 1999, STAT metoclopram 2020-04 No 10mg 10 mg, Uni vers selena HCl 05-22 Slow IV ity of (REGLAN) 02:00: 01:13 Push, [place] injection 00 :00 ONCE, 1 Medical 10 mg dose, On Branch [facility] 03/20/21 at 1999, [place] FENTanyl PF 2020-04- No 75ug 75 mcg, Un you (SUBLIMAZE 05-21 Slow IV ity o f (PF)) 23:30: 22:45 Push, [place] injection 00 :00 ONCE, 1 Medical 75 mcg dose, On Branch [facility] 03/20/21 at 1730, Routine ketorolac 2020-04- No 30mg 30 mg, Unive rs (TORADOL) 05-21 Slow IV ity of injection 23:30: 22:44 Push, [place] 30 mg 00 :00 ONCE, 1 Medical dose, On Branch 03/20/21 at 1730, Routine
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 dicyclomine 2020-04 Yes [id number] 20mg Take 1 Univers 20 mg 2-06 tablet by ity of tablet 00:00: mouth 4 [place] 00 (four) Medical times Branch daily. metoclopram 2020-04 Yes [id number] 10mg Take 1 Univers selena HCl 10 2-06 tablet by ity of mg tablet 00:00: mouth [place] 00 every 6 Medical (six) Branch hours as needed for Nausea and Vomiting (N/V). dicyclomine 2020-04 Yes [id number] 20mg Take 1 Univers 20 mg 2-06 tablet by ity of tablet 00:00: mouth 4 (four) Medical times Branch daily. metoclopram 2020-04 Yes [id number] 10mg Take 1 Univers selena HCl 10 2-06 tablet by ity of mg tablet 00:00: mouth [place] 00 every 6 Medical (six) Branch hours as needed for Nausea and Vomiting (N/V). dicyclomine 2020-04 Yes [id number] 20mg Take 1 Univers 20 mg 2-06 tablet by ity of tablet 00:00: mouth 4 00 (four) Medical times Branch daily. metoclopram 2020-04 Yes [id number] 10mg Take 1 Univers selena HCl 10 2-06 tablet by ity of mg tablet 00:00: mouth [place] 00 every 6 Medical (six) Branch hours as needed for Nausea and Vomiting (N/V). dicyclomine 2020-04 Yes [id number] 20mg Take 1 Univers 20 mg 2-06 tablet by ity of tablet 00:00: mouth (four) Medical times Branch daily. metoclopram 2020-04 Yes [id number] 10mg Take 1 Univers selena HCl 10 2-06 tablet by ity of mg tablet 00:00: mouth [place] 00 every 6 Medical (six) Branch hours as needed for Nausea and Vomiting (N/V). dicyclomine 2020-04 Yes [id number] 20mg Take 1 Univers 20 mg 2-06 tablet by ity of tablet 00:00: mouth [place] (four) Medical times Branch daily. metoclopram 2020-04 Yes [id number] 10mg Take 1 Univers selena HCl 10 2-06 tablet by ity of mg tablet 00:00: mouth [place] 00 every 6 Medical (six) Branch hours as needed for Nausea and Vomiting (N/V). dicyclomine 2020-04 Yes [id number] 20mg Take 1 Univers 20 mg 2-06 tablet by ity of tablet 00:00: mouth 4 (four) Medical times Branch daily. metoclopram 2020-04 Yes [id number] 10mg Take 1 Univers selena HCl 10 2-06 tablet by ity of mg tablet 00:00: mouth [place] 00 every 6 Medical (six) Branch hours as needed for Nausea and Vomiting (N/V). dicyclomine 2020-04 Yes [id number] 20mg Take 1 Univers 20 mg 2-06 tablet by ity of tablet 00:00: mouth 4 [place] 00 (four) Medical times Branch daily. metoclopram 2020-04 Yes [id number] 10mg Take 1 Univers selena HCl 10 2-06 tablet by ity of mg tablet 00:00: mouth [place] 00 every 6 Medical (six) Branch hours as needed for Nausea and Vomiting (N/V). dicyclomine 2020-04 Yes [id number] 20mg Take 1 Univers 20 mg 2-06 tablet by ity of tablet 00:00: mouth 4 [place] 00 (four) Medical times Branch daily. metoclopram 2020-04 Yes [id number] 10mg Take 1 Univers selena HCl 10 2-06 tablet by ity of mg tablet 00:00: mouth [place] 00 every 6 Medical (six) Branch hours as needed for Nausea and Vomiting (N/V). dicyclomine 2020-04 Yes [id number] 20mg Take 1 Univers 20 mg 2-06 tablet by ity of tablet 00:00: mouth [address] [place] [address] 00 (four) Medical times Branch daily. metoclopram 2020-04- No [id number] 10mg Take 1 Univers selena HCl 10 2-06 02-06 tablet by ity of mg tablet 00:00: 00:00 mouth [place] 00 :00 every 6 Medical (six) Branch hours as needed for Nausea and Vomiting (N/V). dicyclomine 2020-04- No [id number] 20mg Take 1 Univers 20 mg 2-06 02-06 tablet by ity of tablet 00:00: 00:[address] [place] [address] 00 :00 (four) Medical times Branch daily. famotidine 2020-04- No [id number] 20mg Take 1 Univers 20 mg 2-06 12-17 tablet by ity of tablet 00:00: 05:59 mouth at [place] 00 :00 bedtime Medical for 10 Branch days. famotidine 2020-04- No [id number] 20mg Take 1 Univers 20 mg 2-06 12-17 tablet by ity of tablet 00:00: 05:59 mouth at [place] 00 :00 bedtime Medical for 10 Branch days. famotidine 2020-04- No [id number] 20mg Take 1 Univers 20 mg 05-21 12-17 tablet by ity of tablet 00:00: 05:59 mouth at [place] 00 :00 bedtime Medical for 10 Branch days. ketorolac 2020-04 No 30mg 30 mg, Unive rs (TORADOL) 04-15 Slow IV ity of injection 02:15: 01:11 Push, [place] 30 mg 00 :00 ONCE, 1 Medical dose, On [facility] 02/12/21 at 2115, Routine
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 Restricted medication : GABRIELE GRAYSON proMETHazin 2020-04 No 25mg 25 mg, IV Univers e 04-15 Piggyback, ity of (PHENERGAN) 02:15: 01:12 ONCE, 1 [place] 25 mg in 00 :00 dose, On Medical NaCl 0.9% [place] Branch (NS) 50 mL 02/12/21 piggyback at 2115, 50 mL iopamidol 2020-04- No [id number] 120mL 120 mL, Univers (ISOVUE 0-02-12 Intravenou ity o f 370-500 mL) 23:30: 22:13 s, ONCE, 1 [place] injection 00 :00 dose, On Medica l 120 mL [facility] 02/12/21 at 1830, Routine morpHINE 2020-04 No 4mg 4 mg, Slow Un you injection 4 02-12 IV Push, ity of mg 23:15: 22:23 ONCE, 1 [place] 00 :00 dose, On [facility] 02/12/21 at 1815, STAT famotidine 2020-04 No 20mg 20 mg, Univ ers (PEPCID 0-12 02- Slow IV ity of (PF)) 21:30: 20:28 Push, [place] injection 00 :00 ONCE, 1 Medical 20 mg dose, On [facility] 02/12/21 at 1630, [place] NaCl 0.9% 2020-04 No 1000mL at 999 Uni vers (NS) bolus 0-31 10-31 mL/hr, ity of infusion 21:30: 21:30 1,000 mL, [place] 1,000 mL 00 :00 IV Medical Infusion, Branch ONCE, 1 dose, On [place] 02/12/21 at 1630, [place] ondansetron 2020-04 No [...] :00 ONCE, 1 Medical dose, On Branch [place] 02/12/21 at 1630, OLUIS
Fa culty member approving Restricted medication : ROSALINDA WALTON morpHINE 2020-04 No 4mg 4 mg, Slow Un you injection 4 0-02-12 IV Push, ity of mg 21:30: 20:23 ONCE, 1 [place] 00 :00 dose, On Medical [facility] 02/12/21 at 1630, STAT ondansetron 2020-04 Yes [id number] 8mg Take 1 Univers 8 mg tablet 0-31 tablet by ity of 00:00: mouth [place] 00 every 8 Medical (eight) Branch hours as needed for Nausea and Vomiting (N/V). ondansetron 2020-04- No [id number] 8mg Take 1 Univers 8 mg tablet 0-31 12-06 tablet by it y of 00:00: 00:00 mouth [place] 00 :00 every 8 Medical (eight) Branch hours as needed for Nausea and Vomiting (N/V). morpHINE 2020-04 No 4mg 4 mg, Slow Un you injection 4 0-01-18 IV Push, ity of mg 07:00: 05:56 ONCE, 1 [place] 00 :00 dose, On Medical [facility] Branch 01/18/21 at 0200, STAT famotidine 2020-04 No 20mg 20 mg, Univ ers (PEPCID 0-06 - Slow IV ity of (PF)) 06:00: 05:08 Push, [place] injection 00 :00 ONCE, 1 Medical 20 mg dose, On Branch [facility] 01/18/21 at 0100, Routine maalox:diph 2020-04 No 15mL 15 mL, Uni vers enhydrAMINE 0-06 10- Oral, ity of :lidocaine 06:00: 05:08 ONCE, 1 [place] 2 % viscous 00 :00 dose, On Medi brandy 1:1:1 Wed Branch ([facility] 01/18/21 at [facility]) 0100, oral Routine suspension 15 mL dicyclomine 2020-04 No 20mg 20 mg, Uni vers (BENTYL) 0-06 - Oral, ity of tablet 20 06:00: 05:08 ONCE, 1 [place] mg 00 :00 dose, On Medical Wed Branch 01/18/21 at 0100, Routine iopamidol 2020-04 No [id number] 120mL 120 mL, Univers (ISOVUE 0-09 22- Intravenou ity o f 370-500 mL) 04:45: [...] [place] injection 4 00 :00 dose, On [facility] brandy mg [facility] Branch [...] mouth. ity o f 11:25: [place] 57 [facility] Branch erythromyci Yes erythromyc Univers n 5 mg/gram 9-25 in 5 ity of (0.5 %) 11:25: mg/gram [place] ophthalmic 57 (0.5 %) Medica l ointment eye Branch ointment ondansetron Yes ondansetro Univers 4 mg tablet 9-25 n HCl 4 mg it y of 11:25: tablet [place] [address] Medical Branch diazePAM 2 Yes 2mg Take 2 mg Un you mg tablet 9-25 by mouth. ity o f 11:25: [place] [address] Medical Branch erythromyci Yes erythromyc Univers n 5 mg/gram 9-25 in 5 ity of (0.5 %) 11:25: mg/gram [place] ophthalmic 57 (0.5 %) Medica l ointment eye Branch ointment ondansetron Yes ondansetro Univers 4 mg tablet 9-25 n HCl 4 mg it y of 11:25: tablet [place] [address] Medical Branch diazePAM 2 Yes 2mg Take 2 mg Un you mg tablet 9-25 by mouth. ity o f 11:25: [place] [address] Medical Branch erythromyci Yes erythromyc Univers n 5 mg/gram 9-25 in 5 ity of (0.5 %) 11:25: mg/gram [place] ophthalmic 57 (0.5 %) Medica l ointment eye Branch ointment ondansetron Yes ondansetro Univers 4 mg tablet 9-25 n HCl 4 mg it y of 11:25: tablet [place] [address] Medical Branch diazePAM 2 Yes 2mg Take 2 mg Un you mg tablet 9-25 by mouth. ity o f 11:25: [place] [address] Medical Branch erythromyci Yes erythromyc Univers n 5 mg/gram 9-25 in 5 ity of (0.5 %) 11:25: mg/gram [place] ophthalmic 57 (0.5 %) Medica l ointment eye Branch ointment ondansetron Yes ondansetro Univers 4 mg tablet 9-25 n HCl 4 mg it y of 11:25: tablet [place] [address] Medical Branch diazePAM 2 Yes 2mg Take 2 mg Un you mg tablet 9-25 by mouth. ity o f 11:25: [place] [address] Medical Branch erythromyci Yes erythromyc Univers n 5 mg/gram 9-25 in 5 ity of (0.5 %) 11:25: mg/gram [place] ophthalmic 57 (0.5 %) Medica l ointment eye Branch ointment ondansetron Yes ondansetro Univers 4 mg tablet 9-25 n HCl 4 mg it y of 11:25: tablet [place] [address] Medical Branch diazePAM 2 Yes 2mg Take 2 mg Un you mg tablet 9-25 by mouth. ity o f 11:25: [place] [address] Medical Branch erythromyci Yes erythromyc Univers n 5 mg/gram 9-25 in 5 ity of (0.5 %) 11:25: mg/gram [place] ophthalmic 57 (0.5 %) Medica l ointment eye Branch ointment ondansetron Yes ondansetro Univers 4 mg tablet 9-25 n HCl 4 mg it y of 11:25: tablet [place] [address] Medical Branch diazePAM 2 Yes 2mg Take 2 mg Un you mg tablet 9-25 by mouth. ity o f 11:25: [address] Branch erythromyci Yes erythromyc Univers n 5 mg/gram 9-25 in 5 ity of (0.5 %) 11:25: mg/gram [place] ophthalmic 57 (0.5 %) Medica l ointment eye Branch ointment diazePAM 2 Yes 2mg Take 2 mg Un you mg tablet 9-25 by mouth. ity o f 11:25: [place] [address] Medical Branch erythromyci Yes erythromyc Univers n 5 mg/gram 9-25 in 5 ity of (0.5 %) 11:25: mg/gram [place] ophthalmic 57 (0.5 %) Medica l ointment eye Branch ointment diazePAM 2 Yes 2mg Take 2 mg Un you mg tablet 9-25 by mouth. ity o f 11:25: [place] [address] Medical Branch erythromyci Yes erythromyc Univers n 5 mg/gram 9-25 in 5 ity of (0.5 %) 11:25: mg/gram [place] ophthalmic 57 (0.5 %) Medica l ointment eye Branch ointment diazePAM 2 Yes 2mg Take 2 mg Un you mg tablet 9-25 by mouth. ity o f 11:25: [place] [address] Medical Branch erythromyci Yes erythromyc Univers n 5 mg/gram 9-25 in 5 ity of (0.5 %) 11:25: mg/gram [place] ophthalmic 57 (0.5 %) Medica l ointment eye Branch ointment diazePAM 2 Yes 2mg Take 2 mg Un you mg tablet 9-25 by mouth. ity o f 11:25: [place] [address] Medical Branch erythromyci Yes erythromyc Univers n 5 mg/gram 9-25 in 5 ity of (0.5 %) 11:25: mg/gram [place] ophthalmic 57 (0.5 %) Medica l ointment eye Branch ointment albuterol Yes [id number] 2{puff} Inhale 2 Univers 90 9-25 Puffs ity of mcg/actuati 00:00: every 6 [place] on inhaler 00 (six) Medical hours as Branch needed for Wheezing or Shortness of Breath. albuterol Yes [id number] 2{puff} Inhale 2 Univers 90 9-25 Puffs ity of mcg/actuati 00:00: every 6 [place] on inhaler 00 (six) Medical hours as Branch needed for Wheezing or Shortness of Breath. albuterol Yes [id number] 2{puff} Inhale 2 Univers 90 9-25 Puffs ity of mcg/actuati 00:00: every 6 [place] on inhaler 00 (six) Medical hours as Branch needed for Wheezing or Shortness of Breath. albuterol Yes [id number] 2{puff} Inhale 2 Univers 90 9-25 Puffs ity of mcg/actuati 00:00: every 6 [place] on inhaler 00 (six) Medical hours as Branch needed for Wheezing or Shortness of Breath. albuterol Yes [id number] 2{puff} Inhale 2 Univers 90 9-25 Puffs ity of mcg/actuati 00:00: every 6 [place] on inhaler 00 (six) Medical hours as Branch needed for Wheezing or Shortness of Breath. albuterol Yes [id number] 2{puff} Inhale 2 Univers 90 9-25 Puffs ity of mcg/actuati 00:00: every 6 [place] on inhaler 00 (six) Medical hours as Branch needed for Wheezing or Shortness of Breath. albuterol Yes [id number] 2{puff} Inhale 2 Univers 90 9-25 Puffs ity of mcg/actuati 00:00: every 6 [place] on inhaler 00 (six) Medical hours as Branch needed for Wheezing or Shortness of Breath. albuterol Yes [id number] 2{puff} Inhale 2 Univers 90 9-25 Puffs ity of mcg/actuati 00:00: every 6 [place] on inhaler 00 (six) Medical hours as Branch needed for Wheezing or Shortness of Breath. albuterol Yes [id number] 2{puff} Inhale 2 Univers 90 9-25 Puffs ity of mcg/actuati 00:00: every 6 [place] on inhaler 00 (six) Medical hours as Branch needed for Wheezing or Shortness of Breath. albuterol Yes [id number] 2{puff} Inhale 2 Univers 90 9-25 Puffs ity of mcg/actuati 00:00: every 6 [place] on inhaler 00 (six) Medical hours as Branch needed for Wheezing or Shortness of Breath. albuterol Yes [id number] 2{puff} Inhale 2 Univers 90 9-25 Puffs ity of mcg/actuati 00:00: every 6 [place] as on inhaler 00 (six) Medical hours as Branch needed for Wheezing or Shortness of Breath. albuterol Yes [id number] 2{puff} Inhale 2 Univers 90 9-25 Puffs ity of mcg/actuati 00:00: every 6 [place] on inhaler 00 (six) Medical hours as Branch needed for Wheezing or Shortness of Breath. albuterol Yes [id number] 2{puff} Inhale 2 [facility] 90 9-25 Puffs ity of mcg/actuati 00:00: every 6 [place] on inhaler 00 (six) Medical hours as Branch needed for Wheezing or Shortness of Breath. albuterol Yes [id number] 2{puff} Inhale 2 [facility] 90 9-25 Puffs ity of mcg/actuati 00:00: every 6 [place] on inhaler 00 (six) Medical hours as Branch needed for Wheezing or Shortness of Breath. albuterol Yes [id number] 2{puff} Inhale 2 [facility] 90 9-25 Puffs ity of mcg/actuati 00:00: every 6 [place] on inhaler 00 (six) Medical hours as Branch needed for Wheezing or Shortness of Breath. albuterol Yes [id number] 2{puff} Inhale 2 [facility] 90 9-25 Puffs ity of mcg/actuati 00:00: every 6 [place] on inhaler 00 (six) Medical hours as Branch needed for Wheezing or Shortness of Breath. albuterol Yes [id number] 2{puff} Inhale 2 [facility] 90 9-25 Puffs ity of mcg/actuati 00:00: every 6 [place] on inhaler 00 (six) Medical hours as Branch needed for Wheezing or Shortness of Breath. albuterol Yes [id number] 2{puff} Inhale 2 [facility] 90 9-25 Puffs ity of mcg/actuati 00:00: every 6 [place] on inhaler 00 (six) Medical hours as Branch needed for Wheezing or Shortness of Breath. albuterol Yes [id number] 2{puff} Inhale 2 [facility] 90 9-25 Puffs ity of mcg/actuati 00:00: every 6 [place] on inhaler 00 (six) Medical hours as Branch needed for Wheezing or Shortness of Breath. albuterol Yes [id number] 2{puff} Inhale 2 [facility] 90 9-25 Puffs ity of mcg/actuati 00:00: every 6 [place] on inhaler 00 (six) Medical hours as Branch needed for Wheezing or Shortness of Breath. albuterol Yes [id number] 2{puff} Inhale 2 [facility] 90 9-25 Puffs ity of mcg/actuati 00:00: every 6 [place] on inhaler 00 (six) Medical hours as Branch needed for Wheezing or Shortness of Breath. albuterol Yes [id number] 2{puff} Inhale 2 [facility] 90 9-25 Puffs ity of mcg/actuati 00:00: every 6 [place] on inhaler 00 (six) Medical hours as Branch needed for Wheezing or Shortness of Breath. albuterol Yes [id number] 2{puff} Inhale 2 [facility] 90 9-25 Puffs ity of mcg/actuati 00:00: every 6 [place] on inhaler 00 (six) Medical hours as Branch needed for Wheezing or Shortness of Breath. albuterol 2021- No [id number] 2{puff} Inhale 2 [facility] 90 9-25 05-20 Puffs ity of mcg/actuati 00:00: 00:00 every 6 [place] on inhaler 00 :00 (six) Medical hours as Branch needed for Wheezing or Shortness of Breath. promethazin 2020- No [id number] 5mL Take 5 mL Univers e-dextromet 9-25 10-03 by mouth 4 i ty of horphan 00:00: 04:59 (four) [place] 6.25-15 00 :00 times Medical mg/5 mL daily as Branch syrup needed for Cough or Cold symptoms for up to 7 days. promethazin 2020- No [id number] 5mL Take 5 mL Univers e-dextromet 9-25 10-03 by mouth 4 i ty of horphan 00:00: 04:59 (four) [place] 6.25-15 00 :00 times Medical mg/5 mL daily as Branch syrup needed for Cough or Cold symptoms for up to 7 days. promethazin 2020- No [id number] 5mL Take 5 mL Univers e-dextromet 9-25 [...] 2 mg tablet 9- ity of 00:00: [place] [facility] tiZANidine 2020-0 Yes Univers 2 mg tablet 9- ity of 00:00: [place] [facility] tiZANidine 2020-0 Yes Univers 2 mg tablet 9- ity of 00:00: [place] [facility] tiZANidine 2020-0 Yes Univers 2 mg tablet 9- ity of 00:00: [place] [facility] tiZANidine 2020-0 Yes Univers 2 mg tablet 9- ity of 00:00: Medical Branch tiZANidine 2020-0 Yes Univers 2 mg tablet 9- ity of 00:00: [place] [facility] tiZANidine 2020-0 Yes Univers 2 [...] 2 mg tablet 9-23 ity of 00:00: [place] [facility] tiZANidine 2020-0 Yes Univers 2 mg tablet 9-23 ity of 00:00: [place] [facility] tiZANidine 2020-0 Yes Univers 2 mg tablet 9- ity of 00:00: [place] [facility] tiZANidine 2020-0 Yes Univers 2 mg tablet 9- ity of 00:00: [place] [facility] tiZANidine 2020-0 Yes Univers 2 mg tablet 9-23 ity of 00:00: [place] 00 Medical Branch tiZANidine 2021-0 Yes Univers 2 mg tablet 9-23 ity of 00:00: [place] [facility] tiZANidine 2021-0 Yes Univers 2 mg tablet 9-23 ity of 00:00: [place] 00 Medical Branch tiZANidine 2021-0 Yes Univers 2 mg tablet 9-23 ity of 00:00: [place] [facility] tiZANidine 2021-0 Yes 4mg Take 4 mg Un you 2 mg tablet 9-23 by mouth 2 it y of 00:00: (two) [place] 00 times Medical daily. Branch tiZANidine 2021-0 Yes 4mg Take 4 mg Un you 2 mg tablet 9-23 by mouth 2 it y of 00:00: (two) [place] 00 times Medical daily. Branch tiZANidine 2021-0 Yes 4mg Take 4 mg Un you 2 mg tablet 9-23 by mouth 2 it y of 00:00: (two) [place] 00 times Medical daily. Branch tiZANidine 2021-0 Yes 4mg Take 4 mg Un you 2 mg tablet 9-23 by mouth 2 it y of 00:00: (two) [place] 00 times Medical daily. Branch tiZANidine 2021-0 Yes 4mg Take 4 mg Un you 2 mg tablet 9-23 by mouth 2 it y of 00:00: (two) [place] 00 times Medical daily. Branch tiZANidine 2021-0 Yes 4mg Take 4 mg Un you 2 mg tablet 9-23 by mouth 2 it y of 00:00: (two) [place] 00 times Medical daily. Branch tiZANidine 2021-0 Yes 4mg Take 4 mg Un you 2 mg tablet 9-23 by mouth 2 it y of 00:00: (two) [place] 00 times Medical daily. Branch tiZANidine 2021-0 Yes 4mg Take 4 mg Un you 2 mg tablet 9-23 by mouth 2 it y of 00:00: (two) [place] 00 times Medical daily. Branch tiZANidine 2021-0 Yes 4mg Take 4 mg Un you 2 mg tablet 9-23 by mouth 2 it y of 00:00: (two) [place] 00 times Medical daily. Branch tiZANidine 2021-0 [...] 4 mg U nivers 2 mg tablet 01-0524 by mouth 2 i ty of 00:00: [...] dose, On Medi brandy 1:1:1 Fri Branch (FIRST-UT 12/30/20 at [facility]) 1645, oral Routine suspension 15 [...] brandy 1:1:1 Fri Branch (FIRST-MOUT 12/30/20 at [facility]) 1645, oral Routine suspension 15 mL famotidine 2020- No 20mg 20 mg, Univ ers (PEPCID 12-30 Slow IV ity of (PF)) 21:45: 20:37 Push, [place] injection 00 :00 ONCE, 1 Medical 20 mg dose, On Branch 12/30/20 at 1645, Routine iopamidol 2020- No [id number] 80mL 80 mL, Univers (ISOVUE 12-30 Intravenou ity o f 370-500 mL) 20:00: 18:48 s, ONCE, 1 [place] injection 00 :00 dose, On Medica l 80 mL Fri Branch 12/30/20 at 1500, Routine iopamidol 0 2020- No [id number] 80mL 80 mL, Univers (ISOVUE 12-30 Intravenou ity o f 370-500 mL) 20:00: 18:48 s, ONCE, 1 [place] injection 00 :00 dose, On Medica l 80 mL Fri Branch 12/30/20 at 1500, Routine morpHINE 2020-0 2020- [...] 00 :00 dose, On Medi brandy mg [facility] 12/30/20 at 1430, LOUIS NaCl 0.9% 0 2020- No 1000mL at 999 Uni vers (NS) bolus 12-30 mL/hr, ity of infusion 19:30: 20:38 1,000 mL, [place] 1,000 mL 00 :00 IV Medical Piggyback, Branch ONCE, 1 dose, On Sat12/30/20 at 1430, STAT morpHINE 2020-0 2020- No 4mg 4 mg, Slow Un you injection 4 12-30 IV Push, ity of mg 19:30: 18:35 ONCE, 1 [place] 00 :00 dose, On [facility] Branch 12/30/20 at 1430, STAT ondansetron 2020-0 2020- No 4mg 4 mg, Slow Univers (ZOFRAN 12-30 IV Push, ity of (PF)) 19:30: 18:35 ONCE, 1 [place] injection 4 00 :00 dose, On Medi brandy mg Fri Branch 12/30/20 at 1430, LOUIS NaCl 0.9% 0 2020- No 1000mL at 999 Uni vers (NS) bolus 12-30 mL/hr, ity of infusion 19:30: 20:38 1,000 mL, [place] 1,000 mL 00 :00 IV Medical Piggyback, Branch ONCE, 1 dose, On Sat12/30/20 at 1430, STAT traZODone 2021-0 Yes 100mg Take 100 Uni vers 100 mg 9-17 mg by ity of tablet 10:15: mouth at [place] [address] bedtime. Medical Branch traZODone 2020-0 Yes 100mg Take 100 Uni vers 100 mg 9-17 mg by ity of tablet 10:15: mouth at [place] [address] bedtime. Medical Branch traZODone 2020-0 Yes 100mg Take 100 Uni vers 100 mg 9-17 mg by ity of tablet 10:15: mouth at [place] [address] bedtime. Medical Branch traZODone 2020-0 Yes 100mg Take 100 Uni vers 100 mg 9-17 mg by ity of tablet 10:15: mouth at [place] [address] bedtime. Medical Branch traZODone 2020-0 Yes 100mg Take 100 Uni vers 100 mg 9-17 mg by ity of tablet 10:15: mouth at [place] [address] bedtime. Medical Branch traZODone 2020-0 Yes 100mg Take 100 Uni vers 100 mg 9-17 mg by ity of tablet 10:15: mouth at [place] [address] bedtime. Medical Branch traZODone 2020-0 Yes 100mg Take 100 Uni vers 100 mg 9-17 mg by ity of tablet 10:15: mouth at [place] [address] bedtime. Medical Branch traZODone 2020-0 Yes 100mg Take 100 Uni vers 100 mg 9-17 mg by ity of tablet 10:15: mouth at [place] [address] bedtime. Medical Branch traZODone 2020-0 Yes 100mg Take 100 Uni vers 100 mg 9-17 mg by ity of tablet 10:15: mouth at [place] [address] bedtime. Medical Branch traZODone 2020-0 Yes 100mg Take 100 Uni vers 100 mg 9-17 mg by ity of tablet 10:15: mouth at [place] [address] bedtime. Medical Branch traZODone 1-0 Yes 100mg Take 100 Uni vers 100 mg 9-17 mg by ity of tablet 10:15: mouth at [place] [address] bedtime. Medical Branch traZODone 1-0 Yes 100mg Take 100 Uni vers 100 mg 9-17 mg by ity of tablet 10:15: mouth at [place] [address] bedtime. Medical Branch traZODone 1-0 Yes 100mg Take 100 Uni vers 100 mg 9-17 mg by ity of tablet 10:15: mouth at [place] [address] bedtime. Medical Branch traZODone 2020-0 Yes 100mg Take 100 Uni vers 100 mg 9-17 mg by ity of tablet 10:15: mouth at [place] 06 bedtime. Medical Branch traZODone 2020-0 Yes 100mg Take 100 Uni vers 100 mg 9-17 mg by ity of tablet 10:15: mouth at [place] 06 bedtime. Medical Branch traZODone 2020-0 Yes 100mg Take 100 Uni vers 100 mg 9-17 mg by ity of tablet 10:15: mouth at [place] 06 bedtime. Medical Branch dicyclomine 2020-0 Yes [id number] 20mg Take 1 Univers 20 mg 9-17 tablet by ity of tablet 00:00: mouth [place] 00 every 6 Medical (six) Branch hours as needed for Abdominal pain. dicyclomine 2020-0 Yes [id number] 20mg Take 1 Univers 20 mg 9-17 tablet by ity of tablet 00:00: mouth [place] 00 every 6 Medical (six) Branch hours as needed for Abdominal pain. dicyclomine 2020-0 Yes [id number] 20mg Take 1 Univers 20 mg 9-17 tablet by ity of tablet 00:00: mouth [place] 00 every 6 Medical (six) Branch hours as needed for Abdominal pain. dicyclomine 2020-0 Yes [id number] 20mg Take 1 Univers 20 mg 9-17 tablet by ity of tablet 00:00: mouth [place] 00 every 6 Medical (six) Branch hours as needed for Abdominal pain. dicyclomine 2020-0 Yes [id number] 20mg Take 1 Univers 20 mg 9-17 tablet by ity of tablet 00:00: mouth [place] 00 every 6 Medical (six) Branch hours as needed for Abdominal pain. dicyclomine 2020-0 Yes [id number] 20mg Take 1 Univers 20 mg 9-17 tablet by ity of tablet 00:00: mouth [place] 00 every 6 Medical (six) Branch hours as needed for Abdominal pain. dicyclomine 2020-0 Yes [id number] 20mg Take 1 Univers 20 mg 9-17 tablet by ity of tablet 00:00: mouth [place] 00 every 6 Medical (six) Branch hours as needed for Abdominal pain. dicyclomine 2020-0 Yes [id number] 20mg Take 1 Univers 20 mg 9-17 tablet by ity of tablet 00:00: mouth [place] 00 every 6 Medical (six) Branch hours as needed for Abdominal pain. dicyclomine 2020-0 Yes [id number] 20mg Take 1 Univers 20 mg 9-17 tablet by ity of tablet 00:00: mouth [place] 00 every 6 Medical (six) Branch hours as needed for Abdominal pain. dicyclomine 2020-0 Yes [id number] 20mg Take 1 Univers 20 mg 9-17 tablet by ity of tablet 00:00: mouth [place] 00 every 6 Medical (six) Branch hours as needed for Abdominal pain. dicyclomine 2020-0 Yes [id number] 20mg Take 1 Univers 20 mg 9-17 tablet by ity of tablet 00:00: mouth [place] 00 every 6 Medical (six) Branch hours as needed for Abdominal pain. dicyclomine 2020-0 Yes [id number] 20mg Take 1 Univers 20 mg 9-17 tablet by ity of tablet 00:00: mouth [place] 00 every 6 Medical (six) Branch hours as needed for Abdominal pain. dicyclomine 2020-0 Yes [id number] 20mg Take 1 Univers 20 mg 9-17 tablet by ity of tablet 00:00: mouth [place] 00 every 6 Medical (six) Branch hours as needed for Abdominal pain. dicyclomine 2020-0 Yes [id number] 20mg Take 1 Univers 20 mg 9-17 tablet by ity of tablet 00:00: mouth [place] 00 every 6 Medical (six) Branch hours as needed for Abdominal pain. dicyclomine 2020-0 Yes [id number] 20mg Take 1 Univers 20 mg 9-17 tablet by ity of tablet 00:00: mouth [place] 00 every 6 Medical (six) Branch hours as needed for Abdominal pain. dicyclomine 2020-0 Yes [id number] 20mg Take 1 Univers 20 mg 9-17 tablet by ity of tablet 00:00: mouth [place] 00 every 6 Medical (six) Branch hours as needed for Abdominal pain. dicyclomine 1-0 Yes [id number] 20mg Take 1 Univers 20 mg 9-17 tablet by ity of tablet 00:00: mouth [place] 00 every 6 Medical (six) Branch hours as needed for Abdominal pain. dicyclomine 2021-0 2022- No [id number] 20mg Take 1 Univers 20 mg 9-17 [...] mg by ity of tablet 10:23: mouth [place] 50 daily. Medical Branch gabapentin 2020-0 Yes 300mg Take 300 Un you 300 mg 9-03 mg by ity of capsule 10:23: mouth 2 [place] 50 (two) Medical times Branch daily. cephALEXin 0 2020- No [id number] 500mg Take 1 Univers 500 mg 12-16 capsule by ity of capsule 00:00: 04:59 mouth 4 [place] 00 :00 (four) Medical times Platter daily for 7 days. cephALEXin 0 2020- No [id number] 500mg Take 1 Univers 500 mg 12-16 capsule by ity of capsule 00:00: 04:59 mouth 4 [place] 00 :00 (four) Medical times Platter daily for 7 days. hydrOXYzine 0 Yes Univer s 25 mg 9- ity of tablet 00:00: [place] [facility] Branch SERTraline 2020-0 Yes Univers 25 mg 9- ity of tablet 00:00: [place] [facility] hydrOXYzine 2020-0 Yes Univer s 25 mg 9- ity of tablet 00:00: [address] Branch SERTraline 2020-0 Yes Univers 25 mg 9- ity of tablet 00:00: [address] hydrOXYzine 2020-0 Yes Univer s 25 mg 9- ity of tablet 00:00: [place] [facility] Branch SERTraline 2020-0 Yes Univers 25 mg 9- ity of tablet 00:00: [address] Branch hydrOXYzine 2020-0 Yes Univer s 25 mg 9- ity of tablet 00:00: [place] [facility] Branch SERTraline 2020-0 Yes Univers 25 mg 9- ity of tablet 00:00: [place] [facility] hydrOXYzine 2020-0 Yes Univer s 25 mg 9- ity of tablet 00:00: [address] SERTraline 2020-0 Yes Univers 25 mg 9- ity of tablet 00:00: [place] [facility] hydrOXYzine 2020-0 Yes Univer s 25 mg 9- ity of tablet 00:00: [address] SERTraline 2020-0 Yes Univers 25 mg 9- ity of tablet 00:00: [place] [facility] hydrOXYzine 2020-0 Yes Univer s 25 mg 9- ity of tablet 00:00: [place] Medical Branch SERTraline 2020-0 Yes Univers 25 mg 9- ity of tablet 00:00: [place] [facility] Branch hydrOXYzine 2020-0 Yes Univer s 25 mg 9- ity of tablet 00:00: [place] [facility] Branch SERTraline 2020-0 Yes Univers 25 mg 9- ity of tablet 00:00: [place] [facility] Branch hydrOXYzine 2020-0 Yes Univer s 25 mg 9- ity of tablet 00:00: [place] [facility] SERTraline 2020-0 Yes Univers 25 mg 9- ity of tablet 00:00: [place] [facility] hydrOXYzine 2020-0 Yes Univer s 25 mg 9- ity of tablet 00:00: [place] [facility] SERTraline 2020-0 Yes Univers 25 mg - ity of tablet 00:00: [place] [facility] hydrOXYzine 2020-0 Yes Univer s 25 mg 9- ity of tablet 00:00: [place] [facility] SERTraline 2020-0 Yes Univers 25 mg 9- ity of tablet 00:00: [place] [facility] hydrOXYzine 2020-0 Yes Univer s 25 mg 9- ity of tablet 00:00: [place] [facility] SERTraline 2020-0 Yes Univers 25 mg 9- ity of tablet 00:00: [place] [facility] hydrOXYzine 2020-0 Yes Univer s 25 mg 9- ity of tablet 00:00: [place] [facility] SERTraline 2020-0 Yes Univers 25 mg 9- ity of tablet 00:00: [place] [facility] hydrOXYzine 2020-0 Yes Univer s 25 mg 9- ity of tablet 00:00: [place] [facility] SERTraline 2020-0 Yes Univers 25 mg 9- ity of tablet 00:00: [place] [facility] hydrOXYzine 2020-0 Yes Univer s 25 mg 9- ity of tablet 00:00: [place] [facility] Branch SERTraline 2020-0 Yes Univers 25 mg 9- ity of tablet 00:00: [place] [facility] SERTraline 2020-0 Yes Univers 25 mg 9- ity of tablet 00:00: Medical Branch SERTraline 2021-0 Yes Univers 25 mg 12-14 ity of tablet 00:00: [facility] SERTraline Yes Univers 25 mg 12-14 ity of tablet 00:00: [facility] SERTraline Yes Univers 25 mg 12-14 ity of tablet 00:00: [facility] SERTraline Yes Univers 25 mg 12-14 ity of tablet 00:00: [facility] SERTraline Yes Univers 25 mg 12-14 ity of tablet 00:00: [facility] SERTraline Yes Univers 25 mg 12-14 ity of tablet 00:00: [place] [facility] SERTraline Yes Univers 25 mg 12-14 ity of tablet 00:00: [place] [facility] SERTraline 2021- No Univer s 25 mg 12-14 05-20 ity of tablet 00:00: 00:00 [place] 00 : [facility] hydrOXYzine 2021- No Unive rs 25 mg 12-14 02-06 ity of tablet 00:00: 00:00 [place] 00 :00 [facility] morpHINE 2020- No 4mg 4 mg, Slow Un you injection 4 12-06 IV Push, ity of mg 00:00: 23:00 ONCE, 1 [place] 00 :00 dose, [facility] 12/05/20 at Branch 1900, STAT dicyclomine 2020- No 20mg 20 mg, Uni vers (BENTYL) 12-06 Intramuscu ity of injection 00:00: 23:00 [place], ONCE, [place] 20 mg 00 :00 1 dose, [facility] 12/05/20 at 1900, Routine iopamidol 2020- No [id number] 120mL 120 mL, Univers (ISOVUE 12-05 Intravenou ity o f 370-500 mL) 22:30: 21:20 s, ONCE, 1 [place] injection 00 :00 dose, [facility] Medic al 120 mL 12/05/20 at Branch 1730, Routine famotidine 2020- No 20mg 20 mg, Univ ers (PEPCID 12-05 Slow IV ity of (PF)) 22:15: 22:14 Push, [place] injection 00 :00 ONCE, 1 Medical 20 mg dose, [facility] 12/05/20 at 1715, LOUIS maalox:diph No 15mL 15 mL, Uni vers enhydrAMINE 12-05 Oral, ity of :lidocaine 22:15: 22:13 ONCE, 1 [place] 2 % viscous 00 :00 dose, Mon Med ical 1:1:1 12/05/20 at Pl[place] (FIRST-MOUT 1715, HWASH BLM) Routine oral suspension 15 mL NaCl 0.9% 2020- No 1000mL at 999 Uni vers (NS) bolus 12-05 mL/hr, ity of infusion 22:00: 23:51 1,000 mL, [place] 1,000 mL 00 :00 IV Medical Piggyback, [place] ONCE, 1 dose, [facility] 12/05/20 at 1700, STAT ondansetron 2020- No 4mg 4 mg, Slow Univers (ZOFRAN 12-05 IV Push, ity of (PF)) 22:00: 22:13 ONCE, 1 [place] injection 4 00 :00 dose, Mon Med ical mg 12/05/20 at [place] 1700, LOUIS morpHINE 2020- No 4mg 4 mg, Slow Un you injection 4 12-05 IV Push, ity of mg 22:00: 22:15 ONCE, 1 [place] 00 :00 dose, [facility] 12/05/20 at [place] 1700, STAT ondansetron 0 Yes [id number] 4mg Take 1 Univers 4 mg 8-23 tablet by ity of disintegrat 00:00: mouth [place] ing tablet 00 every 8 Medica l (eight) Branch hours as needed for Nausea and Vomiting (N/V). ondansetron 2020-0 Yes [id number] 4mg Take 1 Univers 4 mg 8-23 tablet by ity of disintegrat 00:00: mouth [place] ing tablet 00 every 8 Medica l (eight) Branch hours as needed for Nausea and Vomiting (N/V). ondansetron 2020-0 Yes [id number] 4mg Take 1 Univers 4 mg 8-23 tablet by ity of disintegrat 00:00: mouth [place] ing tablet 00 every 8 Medica l (eight) Branch hours as needed for Nausea and Vomiting (N/V). ondansetron 2020-0 Yes [id number] 4mg Take 1 Univers 4 mg 8-23 tablet by ity of disintegrat 00:00: mouth [place] ing tablet 00 every 8 Medica l (eight) Branch hours as needed for Nausea and Vomiting (N/V). ondansetron 2020-0 Yes [id number] 4mg Take 1 Univers 4 mg 8-23 tablet by ity of disintegrat 00:00: mouth [place] ing tablet 00 every 8 Medica l (eight) Branch hours as needed for Nausea and Vomiting (N/V). ondansetron 2020-0 Yes [id number] 4mg Take 1 Univers 4 mg 8-23 tablet by ity of disintegrat 00:00: mouth [place] ing tablet 00 every 8 Medica l (eight) Branch hours as needed for Nausea and Vomiting (N/V). ondansetron 2020-0 Yes [id number] 4mg Take 1 Univers 4 mg 8-23 tablet by ity of disintegrat 00:00: mouth [place] ing tablet 00 every 8 Medica l (eight) Branch hours as needed for Nausea and Vomiting (N/V). ondansetron 2020-0 Yes [id number] 4mg Take 1 Univers 4 mg 8-23 tablet by ity of disintegrat 00:00: mouth [place] ing tablet 00 every 8 Medica l (eight) Branch hours as needed for Nausea and Vomiting (N/V). ondansetron 2020-0 Yes [id number] 4mg Take 1 Univers 4 mg 8-23 tablet by ity of disintegrat 00:00: mouth [place] ing tablet 00 every 8 Medica l (eight) Branch hours as needed for Nausea and Vomiting (N/V). ondansetron 2020-0 Yes [id number] 4mg Take 1 Univers 4 mg 8-23 tablet by ity of disintegrat 00:00: mouth [place] ing tablet 00 every 8 Medica l (eight) Branch hours as needed for Nausea and Vomiting (N/V). ondansetron 2020-0 Yes [id number] 4mg Take 1 Univers 4 mg 8-23 tablet by ity of disintegrat 00:00: mouth [place] ing tablet 00 every 8 Medica l (eight) Branch hours as needed for Nausea and Vomiting (N/V). ondansetron 2020-0 Yes [id number] 4mg Take 1 Univers 4 mg 8-23 tablet by ity of disintegrat 00:00: mouth [place] ing tablet 00 every 8 Medica l (eight) Branch hours as needed for Nausea and Vomiting (N/V). ondansetron 0 Yes [id number] 4mg Take 1 Univers 4 mg 8-23 tablet by ity of disintegrat 00:00: mouth [place] ing tablet 00 every 8 Medica l (eight) Branch hours as needed for Nausea and Vomiting (N/V). ondansetron 0 Yes [id number] 4mg Take 1 Univers 4 mg 8-23 tablet by ity of disintegrat 00:00: mouth [place] ing tablet 00 every 8 Medica l (eight) Branch hours as needed for Nausea and Vomiting (N/V). ondansetron 0 Yes [id number] 4mg Take 1 Univers 4 mg 8-23 tablet by ity of disintegrat 00:00: mouth [place] ing tablet 00 every 8 Medica l (eight) Branch hours as needed for Nausea and Vomiting (N/V). ondansetron 0 Yes [id number] 4mg Take 1 Univers 4 mg 8-23 tablet by ity of disintegrat 00:00: mouth [place] ing tablet 00 every 8 Medica l (eight) Branch hours as needed for Nausea and Vomiting (N/V). ondansetron 0 Yes [id number] 4mg Take 1 Univers 4 mg 8-23 tablet by ity of disintegrat 00:00: mouth [place] ing tablet 00 every 8 Medica l (eight) Branch hours as needed for Nausea and Vomiting (N/V). ondansetron 2020-0 Yes [id number] 4mg Take 1 Univers 4 mg 8-23 tablet by ity of disintegrat 00:00: mouth [place] ing tablet 00 every 8 Medica l (eight) Branch hours as needed for Nausea and Vomiting (N/V). ondansetron 2020-0 Yes [id number] 4mg Take 1 Univers 4 mg 8-23 tablet by ity of disintegrat 00:00: mouth [place] ing tablet 00 every 8 Medica l (eight) Branch hours as needed for Nausea and Vomiting (N/V). ondansetron Yes [id number] 4mg Take 1 Univers 4 mg 8-23 tablet by ity of disintegrat 00:00: mouth [place] ing tablet 00 every 8 Medica l (eight) Branch hours as needed for Nausea and Vomiting (N/V). ondansetron Yes [id number] 4mg Take 1 Univers 4 mg 8-23 tablet by ity of disintegrat 00:00: mouth [place] ing tablet 00 every 8 Medica l (eight) Branch hours as needed for Nausea and Vomiting (N/V). ondansetron Yes [id number] 4mg Take 1 Univers 4 mg 8-23 tablet by ity of disintegrat 00:00: mouth [place] ing tablet 00 every 8 Medica l (eight) Branch hours as needed for Nausea and Vomiting (N/V). ondansetron Yes [id number] 4mg Take 1 Univers 4 mg 8-23 tablet by ity of disintegrat 00:00: mouth [place] ing tablet 00 every 8 Medica l (eight) Branch hours as needed for Nausea and Vomiting (N/V). ondansetron Yes [id number] 4mg Take 1 Univers 4 mg 8-23 tablet by ity of disintegrat 00:00: mouth [place] ing tablet 00 every 8 Medica l (eight) Branch hours as needed for Nausea and Vomiting (N/V). ondansetron 2021- No [id number] 4mg Take 1 Univers 4 mg 8-23 02-06 tablet by ity of disintegrat 00:00: 00:00 mouth [place] tablet 00 :00 every 8 Medica l (eight) Branch hours as needed for Nausea and Vomiting (N/V). dicyclomine 2020- No [id number] 20mg Take 1 Univers 20 mg 8-23 [...] by ity of tablet 01:44: mouth at [place] 06 bedtime. Medical Branch losartan 0 Yes 100mg Take 100 Univ ers 100 mg 7-01 mg by ity of tablet 01:44: mouth [place] 06 daily. Medical Branch gabapentin 0 Yes 300mg Take 300 Un you 300 mg 7-01 mg by ity of capsule 01:44: mouth 2 [place] 06 (two) Medical times Branch daily. traZODone 0 Yes 100mg Take 100 Uni vers 100 mg 7-01 mg by ity of tablet 01:44: mouth at [place] 06 bedtime. Medical Branch losartan 0 Yes 100mg Take 100 Univ ers 100 mg 7-01 mg by ity of tablet 01:44: mouth [place] 06 daily. Medical Branch gabapentin Yes 300mg Take 300 Un you 300 mg 7-01 mg by ity of capsule 01:44: mouth 2 [place] [address] (two) Medical times Platter daily. HYDROcodone Yes 1{tbl} 1 tablet, Univers -acetaminop 7- Oral, BID, it y of hen (NORCO 01:00: First dose [place] 5) 5-325 mg 00 on Sat Medica l tablet 1 10/12/20 at [facility] h tablet 1999, Until Discontinu ed, Routine [...] ONCE, 1 [place] :[place] dose, [facility] Medical 10/12/20 at Branch 1245, Routine lipase-prot [...] dose [place] mg 00 on Sat [facility] 10/12/20 at Branch 0800, Until Discontinu ed, Routine heparin 0 Yes 5000U 5,000 Univers (porcine) 630 Units, ity of injection 13:00: [place]o [place] 5,000 Units 00 us, Q12H, Med ical First dose Branch on Sat10/12/20 at 0800, Until Discontinu ed, Routine traZODone Yes 100mg 100 mg, Univ ers (DESYREL) 630 Oral, QHS, ity of tablet 100 03:00: First dose [place] mg 00 on [facility] 10/11/20 at Branch 2200, Until Discontinu ed, Routine gabapentin Yes 300mg 300 mg, Uni vers (NEURONTIN) 630 Oral, BID, it y of capsule 300 03:00: First dose [place] mg 00 on [facility] 10/11/20 at Branch 2200, Until Discontinu ed, Routine ondansetron Yes 4mg 4 mg, Slow Univers (ZOFRAN 30 IV Push, ity of (PF)) 02:52: Q6HPRN, [place] injection 4 29 Starting Medi brandy mg [facility] 10/11/20 at 2152, Until Discontinu ed, Routine, Nausea and Vomiting (N/V) HYDROcodone 0 2020- No 1{tbl} 1 tablet, Univers -acetaminop 10-12 0630 Oral, ity of hen (NORCO) 02:52: 15:44 Q6HPRN, [place] 10-325 mg 25 :37 Starting Medica l tablet 1 [facility] tablet 10/11/20 at 2152, Until 10/12/20 at 1044, Routine, Pain (scale 7-10) HYDROcodone 2020- No 1{tbl} 1 tablet, Univers -acetaminop 10-12 07-02 Oral, ity of hen (NORCO 02:51: 02:50 Q6HPRN, [place] 5) 5-325 mg 18 :18 Starting Medi brandy tablet 1 [facility] tablet 10/11/20 at 2151, Until [place] 10/13/20 at 2150, Routine, Pain (scale 4-6) ibuprofen Yes 200mg 200 mg, Univ ers (MOTRIN IB) 6-30 Oral, ity of tablet 200 02:51: Q6HPRN, [place] mg 13 Starting Medical [facility] 10/11/20 at 2151, Until Discontinu ed, Routine, Pain (scale 1-3) morpHINE 2020- No 4mg 4 mg, Slow Un you injection 4 10-12 06-30 IV Push, ity of mg 01:15: 00:14 ONCE, 1 [place] 00 :00 dose, [facility] 10/11/20 at Branch 2015, STAT fenofibrate Yes 145mg Take 1 Univers 145 mg 6-30 tablet by ity of tablet 00:00: mouth [place] 00 daily. [facility] Branch lipase-prot Yes 3{capsu Take 3 Univers ease-amylas 6-30 le} capsules ity of e 00:00: by mouth 3 [place] 12,000-38,0 00 (three) Medic al 00 -60,000 times Branch unit daily with capsule meals. ursodioL 0 Yes [id number] 250mg Take 1 Un you 250 mg 6-30 tablet by ity of tablet 00:00: mouth 2 [place] 00 (two) Medical times Branch daily. fenofibrate 0 Yes 145mg Take 1 Univers 145 mg 6-30 tablet by ity of tablet 00:00: mouth [place] 00 daily. [facility] Branch lipase-prot Yes 3{capsu Take 3 Univers ease-amylas 6-30 le} capsules ity of e 00:00: by mouth 3 [place] 12,000-38,0 00 (three) Medic al 00 -60,000 times Branch unit daily with capsule meals. ursodioL 2020-0 Yes [id number] 250mg Take 1 Un you 250 mg 6-30 tablet by ity of tablet 00:00: mouth 2 (two) Medical times Branch daily. fenofibrate 2020-0 Yes [id number] 145mg Take 1 Univers 145 mg 6-30 tablet by ity of tablet 00:00: mouth 00 daily. Medical Branch lipase-prot 2020-0 Yes [id number] 3{capsu Take 3 Univers ease-amylas 6-30 le} capsules ity of e 00:00: by mouth 3 [place] 12,000-38,0 00 (three) Medic al 00 -60,000 times Branch unit daily with capsule meals. ursodioL 2020-0 Yes [id number] 250mg Take 1 Un you 250 mg 6-30 tablet by ity of tablet 00:00: mouth 2 (two) Medical times Branch daily. fenofibrate 2020-0 Yes [id number] 145mg Take 1 Univers 145 mg 6-30 tablet by ity of tablet 00:00: mouth 00 daily. Medical Branch lipase-prot 2020-0 Yes [id number] 3{capsu Take 3 Univers ease-amylas 6-30 le} capsules ity of e 00:00: by mouth 3 [place] 12,000-38,0 00 (three) Medic al 00 -60,000 times Branch unit daily with capsule meals. ursodioL 2020-0 Yes [id number] 250mg Take 1 Un you 250 mg 6-30 tablet by ity of tablet 00:00: mouth (two) Medical times Branch daily. fenofibrate 2020-0 Yes [id number] 145mg Take 1 Univers 145 mg 6-30 tablet by ity of tablet 00:00: mouth 00 daily. Medical Branch lipase-prot 2020-0 Yes [id number] 3{capsu Take 3 Univers ease-amylas 6-30 le} capsules ity of e 00:00: by mouth 3 [place] 12,000-38,0 00 (three) Medic al 00 -60,000 times Branch unit daily with capsule meals. ursodioL 2020-0 Yes [id number] 250mg Take 1 Un you 250 mg 6-30 tablet by ity of tablet 00:00: mouth 2 [place] 00 (two) Medical times Branch daily. fenofibrate 2020-0 Yes [id number] 145mg Take 1 Univers 145 mg 6-30 tablet by ity of tablet 00:00: mouth [place] 00 daily. Medical Branch lipase-prot 2020-0 Yes [id number] 3{capsu Take 3 Univers ease-amylas 6-30 le} capsules ity of e 00:00: by mouth 3 [place] 12,000-38,0 00 (three) Medic al 00 -60,000 times Branch unit daily with capsule meals. ursodioL 2020-0 Yes [id number] 250mg Take 1 Un you 250 mg 6-30 tablet by ity of tablet 00:00: mouth 2 00 (two) Medical times Branch daily. fenofibrate 2020-0 Yes [id number] 145mg Take 1 Univers 145 mg 6-30 tablet by ity of tablet 00:00: mouth 00 daily. Medical Branch lipase-prot 2020-0 Yes [id number] 3{capsu Take 3 Univers ease-amylas 6-30 le} capsules ity of e 00:00: by mouth 3 [place] 12,000-38,0 00 (three) Medic al 00 -60,000 times Branch unit daily with capsule meals. ursodioL 2020-0 Yes [id number] 250mg Take 1 Un you 250 mg 6-30 tablet by ity of tablet 00:00: mouth 2 (two) Medical times Branch daily. fenofibrate 2020-0 Yes [id number] 145mg Take 1 Univers 145 mg 6-30 tablet by ity of tablet 00:00: mouth 00 daily. Medical Branch lipase-prot 2020-0 Yes [id number] 3{capsu Take 3 Univers ease-amylas 6-30 le} capsules ity of e 00:00: by mouth 3 [place] 12,000-38,0 00 (three) Medic al 00 -60,000 times Branch unit daily with capsule meals. ursodioL 2020-0 Yes [id number] 250mg Take 1 Un you 250 mg 6-30 tablet by ity of tablet 00:00: mouth 2 00 (two) Medical times Branch daily. fenofibrate 2020-0 Yes [id number] 145mg Take 1 Univers 145 mg 6-30 tablet by ity of tablet 00:00: mouth [place] 00 daily. Medical Branch lipase-prot 2020-0 Yes [id number] 3{capsu Take 3 Univers ease-amylas 6-30 le} capsules ity of e 00:00: by mouth 3 [place] 12,000-38,0 00 (three) Medic al 00 -60,000 times Branch unit daily with capsule meals. ursodioL 2020-0 Yes [id number] 250mg Take 1 Un you 250 mg 6-30 tablet by ity of tablet 00:00: mouth 2 00 (two) Medical times Branch daily. fenofibrate 2020-0 Yes [id number] 145mg Take 1 Univers 145 mg 6-30 tablet by ity of tablet 00:00: mouth [place] 00 daily. Medical Branch lipase-prot 2020-0 Yes [id number] 3{capsu Take 3 [facility] ease-amylas 6-30 le} capsules ity of e 00:00: by mouth 3 [place] 12,000-38,0 00 (three) Medic al 00 -60,000 times Branch unit daily with capsule meals. ursodioL 2020-0 Yes [id number] 250mg Take 1 Un you 250 mg 6-30 tablet by ity of tablet 00:00: mouth 2 00 (two) Medical times Branch daily. fenofibrate 2020-0 Yes [id number] 145mg Take 1 Univers 145 mg 6-30 tablet by ity of tablet 00:00: mouth 00 daily. Medical Branch lipase-prot 2020-0 Yes [id number] 3{capsu Take 3 [facility] ease-amylas 6-30 le} capsules ity of e 00:00: by mouth 3 [place] 12,000-38,0 00 (three) Medic al 00 -60,000 times Branch unit daily with capsule meals. ursodioL 2020-0 Yes [id number] 250mg Take 1 Un you 250 mg 6-30 tablet by ity of tablet 00:00: mouth 2 00 (two) Medical times Branch daily. fenofibrate 2020-0 Yes [id number] 145mg Take 1 Univers 145 mg 6-30 tablet by ity of tablet 00:00: mouth [place] 00 daily. Medical Branch lipase-prot 2020-0 Yes [id number] 3{capsu Take 3 Univers ease-amylas 6-30 le} capsules ity of e 00:00: by mouth 3 [place] 12,000-38,0 00 (three) Medic al 00 -60,000 times Branch unit daily with capsule meals. ursodioL 2020-0 Yes [id number] 250mg Take 1 Un you 250 mg 6-30 tablet by ity of tablet 00:00: mouth 2 00 (two) Medical times Branch daily. fenofibrate 2020-0 Yes [id number] 145mg Take 1 Univers 145 mg 6-30 tablet by ity of tablet 00:00: mouth [place] 00 daily. Medical Branch lipase-prot 2020-0 Yes [id number] 3{capsu Take 3 [facility] ease-amylas 6-30 le} capsules ity of e 00:00: by mouth 3 [place] 12,000-38,0 00 (three) Medic al 00 -60,000 times Branch unit daily with capsule meals. ursodioL 2020-0 Yes [id number] 250mg Take 1 Un you 250 mg 6-30 tablet by ity of tablet 00:00: mouth 2 (two) Medical times Branch daily. fenofibrate 2020-0 Yes [id number] 145mg Take 1 Univers 145 mg 6-30 tablet by ity of tablet 00:00: mouth 00 daily. Medical Branch lipase-prot 2020-0 Yes [id number] 3{capsu Take 3 [facility] ease-amylas 6-30 le} capsules ity of e 00:00: by mouth 3 [place] 12,000-38,0 00 (three) Medic al 00 -60,000 times Branch unit daily with capsule meals. ursodioL 2020-0 Yes [id number] 250mg Take 1 Un you 250 mg 6-30 tablet by ity of tablet 00:00: mouth 2 (two) Medical times Branch daily. fenofibrate 2020-0 Yes [id number] 145mg Take 1 Univers 145 mg 6-30 tablet by ity of tablet 00:00: mouth [place] 00 daily. Medical Branch lipase-prot 2020-0 Yes [id number] 3{capsu Take 3 [facility] ease-amylas 6-30 le} capsules ity of e 00:00: by mouth 3 [place] 12,000-38,0 00 (three) Medic al 00 -60,000 times Branch unit daily with capsule meals. ursodioL 2020-0 Yes [id number] 250mg Take 1 Un you 250 mg 6-30 tablet by ity of tablet 00:00: mouth 2 00 (two) Medical times Branch daily. fenofibrate 2020-0 Yes [id number] 145mg Take 1 Univers 145 mg 6-30 tablet by ity of tablet 00:00: mouth [place] 00 daily. Medical Branch lipase-prot 2020-0 Yes [id number] 3{capsu Take 3 [facility] ease-amylas 6-30 le} capsules ity of e 00:00: by mouth 3 [place] 12,000-38,0 00 (three) Medic al 00 -60,000 times Branch unit daily with capsule meals. ursodioL 2020-0 Yes [id number] 250mg Take 1 Un you 250 mg 6-30 tablet by ity of tablet 00:00: mouth 2 00 (two) Medical times Branch daily. fenofibrate 2020-0 Yes [id number] 145mg Take 1 Univers 145 mg 6-30 tablet by ity of tablet 00:00: mouth [place] 00 daily. Medical Branch lipase-prot 2020-0 Yes [id number] 3{capsu Take 3 [facility] ease-amylas 6-30 le} capsules ity of e 00:00: by mouth 3 [place] 12,000-38,0 00 (three) Medic al 00 -60,000 times Branch unit daily with capsule meals. ursodioL 2020-0 Yes [id number] 250mg Take 1 Un you 250 mg 6-30 tablet by ity of tablet 00:00: mouth 2 00 (two) Medical times Branch daily. fenofibrate 2020-0 Yes [id number] 145mg Take 1 Univers 145 mg 6-30 tablet by ity of tablet 00:00: mouth [place] 00 daily. Medical Branch lipase-prot 2020-0 Yes [id number] 3{capsu Take 3 [facility] ease-amylas 6-30 le} capsules ity of e 00:00: by mouth 3 [place] 12,000-38,0 00 (three) Medic al 00 -60,000 times Branch unit daily with capsule meals. ursodioL 2020-0 Yes [id number] 250mg Take 1 Un you 250 mg 6-30 tablet by ity of tablet 00:00: mouth 2 [place] 00 (two) Medical times Branch daily. fenofibrate 2020-0 Yes [id number] 145mg Take 1 Univers 145 mg 6-30 tablet by ity of tablet 00:00: mouth [place] 00 daily. Medical Branch lipase-prot 2020-0 Yes [id number] 3{capsu Take 3 [facility] ease-amylas 6-30 le} capsules ity of e 00:00: by mouth 3 [place] 12,000-38,0 00 (three) Medic al 00 -60,000 times Branch unit daily with capsule meals. ursodioL 2020-0 Yes [id number] 250mg Take 1 Un you 250 mg 6-30 tablet by ity of tablet 00:00: mouth 2 [place] 00 (two) Medical times Branch daily. fenofibrate 2020-0 Yes [id number] 145mg Take 1 Univers 145 mg 6-30 tablet by ity of tablet 00:00: mouth [place] 00 daily. Medical Branch lipase-prot 2020-0 Yes [id number] 3{capsu Take 3 [facility] ease-amylas 6-30 le} capsules ity of e 00:00: by mouth 3 [place] 12,000-38,0 00 (three) Medic al 00 -60,000 times Branch unit daily with capsule meals. ursodioL 2020-0 Yes [id number] 250mg Take 1 Un you 250 mg 6-30 tablet by ity of tablet 00:00: mouth 2 [place] (two) Medical times Branch daily. fenofibrate 2020-0 Yes [id number] 145mg Take 1 Univers 145 mg 6-30 tablet by ity of tablet 00:00: mouth [place] 00 daily. Medical Branch fenofibrate 2020-0 Yes [id number] 145mg Take 1 Univers 145 mg 6-30 tablet by ity of tablet 00:00: mouth [place] 00 daily. Medical Branch lipase-prot 2020-0 Yes [id number] 3{capsu Take 3 [facility] ease-amylas 6-30 le} capsules ity of e 00:00: by mouth 3 [place] 12,000-38,0 00 (three) Medic al 00 -60,000 times Branch unit daily with capsule meals. ursodioL 2020-0 Yes [id number] 250mg Take 1 Un you 250 mg 6-30 tablet by ity of tablet 00:00: mouth 2 [place] 00 (two) Medical times Branch daily. lipase-prot 2020-0 Yes [id number] 3{capsu Take 3 [facility] ease-amylas 6-30 le} capsules ity of e 00:00: by mouth 3 [place] 12,000-38,0 00 (three) Medic al 00 -60,000 times Branch unit daily with capsule meals. ursodioL 202-0 Yes [id number] 250mg Take 1 Un you 250 mg 6-30 tablet by ity of tablet 00:00: mouth 2 [place] 00 (two) Medical times Branch daily. fenofibrate 2020-0 Yes [id number] 145mg Take 1 Univers 145 mg 6-30 tablet by ity of tablet 00:00: mouth [place] 00 daily. Medical Branch lipase-prot 2020-0 Yes [id number] 3{capsu Take 3 [facility] ease-amylas 6-30 le} capsules ity of e 00:00: by mouth 3 [place] 12,000-38,0 00 (three) Medic al 00 -60,000 times Branch unit daily with capsule meals. ursodioL 2020-0 Yes [id number] 250mg Take 1 Un you 250 mg 6-30 tablet by ity of tablet 00:00: mouth 2 [place] 00 (two) Medical times Branch daily. fenofibrate 2020-0 Yes [id number] 145mg Take 1 Univers 145 mg 6-30 tablet by ity of tablet 00:00: mouth [place] 00 daily. Medical Branch lipase-prot 2020- Yes [id number] 3{capsu Take 3 [facility] ease-amylas 6-30 le} capsules ity of e 00:00: by mouth 3 [place] 12,000-38,0 00 (three) Medic al 00 -60,000 times Branch unit daily with capsule meals. ursodioL 2020-0 Yes [id number] 250mg Take 1 Un you 250 mg 6-30 tablet by ity of tablet 00:00: mouth 2 [place] 00 (two) Medical times Branch daily. fenofibrate 2020-0 Yes [id number] 145mg Take 1 Univers 145 mg 6-30 tablet by ity of tablet 00:00: mouth [place] 00 daily. Medical Branch fenofibrate 2020-0 Yes [id number] 145mg Take 1 [facility] 145 mg 6-30 tablet by ity of tablet 00:00: mouth [place] 00 daily. Medical Branch fenofibrate 2020-0 Yes [id number] 145mg Take 1 [facility] 145 mg 6-30 tablet by ity of tablet 00:00: mouth [place] 00 daily. Medical Branch lipase-prot 2020-0 Yes [id number] 3{capsu Take 3 [facility] ease-amylas 6-30 le} capsules ity of e 00:00: by mouth 3 [place] 12,000-38,0 00 (three) Medic al 00 -60,000 times Branch unit daily with capsule meals. ursodioL Yes [id number] 250mg Take 1 Un you 250 mg 6-30 tablet by ity of tablet 00:00: mouth 2 [place] 00 (two) Medical times Branch daily. fenofibrate 0 Yes [id number] 145mg Take 1 [facility] 145 mg 6-30 tablet by ity of tablet 00:00: mouth [place] 00 daily. Medical Branch fenofibrate 0 Yes [id number] 145mg Take 1 [facility] 145 mg 6-30 tablet by ity of tablet 00:00: mouth [place] 00 daily. Medical Branch fenofibrate 2020-0 Yes [id number] 145mg Take 1 [facility] 145 mg 6-30 tablet by ity of tablet 00:00: mouth [place] 00 daily. Medical Branch fenofibrate 0 Yes [id number] 145mg Take 1 [facility] 145 mg 6-30 tablet by ity of tablet 00:00: mouth [place] 00 daily. Medical Branch fenofibrate 2020-0 Yes [id number] 145mg Take 1 [facility] 145 mg 6-30 tablet by ity of tablet 00:00: mouth [place] 00 daily. Medical Branch fenofibrate 2020-0 Yes [id number] 145mg Take 1 [facility] 145 mg 6-30 tablet by ity of tablet 00:00: mouth [place] 00 daily. Medical Branch fenofibrate 2020-0 Yes [id number] 145mg Take 1 [facility] 145 mg 6-30 tablet by ity of tablet 00:00: mouth [place] 00 daily. Medical Branch fenofibrate 2020-0 Yes [id number] 145mg Take 1 [facility] 145 mg 6-30 tablet by ity of tablet 00:00: mouth [place] 00 daily. Medical Branch fenofibrate 2020-0 Yes [id number] 145mg Take 1 [facility] 145 mg 6-30 tablet by ity of tablet 00:00: mouth [place] 00 daily. Medical Branch fenofibrate 2020-0 Yes [id number] 145mg Take 1 [facility] 145 mg 6-30 tablet by ity of tablet 00:00: mouth [place] 00 daily. Medical Branch fenofibrate 2020-0 Yes [id number] 145mg Take 1 [facility] 145 mg 6-30 tablet by ity of tablet 00:00: mouth [place] 00 daily. Medical Branch fenofibrate 2020-0 Yes [id number] 145mg Take 1 [facility] 145 mg 6-30 tablet by ity of tablet 00:00: mouth [place] 00 daily. Medical Branch fenofibrate Yes [id number] 145mg Take 1 [facility] 145 mg 6-30 tablet by ity of tablet 00:00: mouth [place] 00 daily. Medical Branch fenofibrate Yes [id number] 145mg Take 1 [facility] 145 mg 6-30 tablet by ity of tablet 00:00: mouth [place] 00 daily. [facility] Branch fenofibrate Yes [id number] 145mg Take 1 Univers 145 mg 6-30 tablet by ity of tablet 00:00: mouth [place] 00 daily. [facility] Branch fenofibrate Yes [id number] 145mg Take 1 Univers 145 mg 6-30 tablet by ity of tablet 00:00: mouth [place] 00 daily. [facility] Branch fenofibrate Yes [id number] 145mg Take 1 Univers 145 mg 6-30 tablet by ity of tablet 00:00: mouth [place] 00 daily. [facility] Branch fenofibrate Yes [id number] 145mg Take 1 Univers 145 mg 6-30 tablet by ity of tablet 00:00: mouth [place] 00 daily. [facility] Branch fenofibrate Yes [id number] 145mg Take 1 Univers 145 mg 6-30 tablet by ity of tablet 00:00: mouth [place] 00 daily. [facility] Branch fenofibrate 2021- No [id number] 145mg Take 1 Univers 145 mg 6-30 10-25 tablet by ity of tablet 00:00: 00:00 mouth [place] 00 :00 daily. Medical Branch lipase-prot 2021- No [id number] 3{capsu Take 3 Univers ease-amylas 6-30 05-21 le} capsules ity of e 00:00: 00:00 by mouth 3 [place] 12,000-38,0 00 :00 (three) Medic al 00 -60,000 times Branch unit daily with capsule meals. ursodioL 2021- No [id number] 250mg Take 1 U nivers 250 mg 6-30 02 tablet by ity of tablet 00:00: 00:00 mouth 2 [place] 00 :00 (two) Medical times Branch daily. morpHINE 2020- No 6mg 6 mg, Slow Un you injection 6 10-11- IV Push, ity of mg 22:15: 21:09 ONCE, 1 [place] 00 :00 dose, [facility] Medical 10/11/20 at Branch 1715, STAT FENTanyl PF 2020-0 2020- No 100ug 100 mcg, Univers (SUBLIMAZE 10-11 Slow IV ity o f (PF)) 20:00: 18:53 Push, [place] injection 00 :00 ONCE, 1 Medical 100 mcg dose, [facility] 10/11/20 at 1500, Routine ondansetron 2020-0 202- No 4mg 4 mg, Slow Univers (ZOFRAN 10-11 IV Push, ity of (PF)) 20:00: 18:54 ONCE, 1 [place] injection 4 00 :00 dose, Tue Med ical mg 10/11/20 at Branch 1500, [facility] morpHINE 2020-0 202- No 6mg 6 mg, Slow Un you injection 6 10-11 IV Push, ity of mg 16:45: 15:42 ONCE, 1 [place] 00 :00 dose, [facility] 10/11/20 at Branch 1145, STAT FENTanyl PF 2020-0 2020- No 100ug 100 mcg, Univers (SUBLIMAZE 10-11 Slow IV ity o f (PF)) 16:15: 15:06 Push, [place] injection 00 :00 ONCE, 1 Medical 100 mcg dose, [facility] 10/11/20 at 1115, Routine metoclopram 2020-0 2020- No 10mg 10 mg, Uni vers selena HCl 10-11 Slow IV ity of (REGLAN) 16:15: 15:06 Push, [place] injection 00 :00 ONCE, 1 Medical 10 mg dose, [facility] 10/11/20 at 1115, [place] morpHINE 2020-0 202- No 4mg 4 mg, Slow Un you injection 4 10-05 IV Push, ity of mg 01:15: 00:15 ONCE, 1 [place] 00 :00 dose, [facility] 10/04/20 at Branch 2015, STAT ondansetron [...] dose, 10/04/20 at 1800, [place] promethazin Yes [id number] 50mg Insert 1 Univers e 50 mg 6-22 Suppositor ity of suppository 00:00: [place] 00 rectum Medical every 6 Branch (six) hours as needed for Nausea and Vomiting (N/V). ondansetron Yes [id number] 4mg Take 1 [facility] (ZOFRAN 6-22 tablet by ity of ODT) 4 mg 00:00: mouth [place] disintegrat 00 every 8 Medic al ing tablet (eight) Branch hours as needed for Nausea and Vomiting (N/V). promethazin Yes [id number] 50mg Insert 1 Univers e 50 mg 6-22 Suppositor ity of suppository 00:00: y [place] 00 rectum Medical every 6 Branch (six) hours as needed for Nausea and Vomiting (N/V). promethazin Yes [id number] 50mg Insert 1 Univers e 50 mg 6-22 Suppositor ity of suppository 00:00: y [place] 00 rectum Medical every 6 Branch (six) hours as needed for Nausea and Vomiting (N/V). promethazin 0 Yes [id number] 50mg Insert 1 Univers e 50 mg 6-22 Suppositor ity of suppository 00:00: y [place] 00 rectum Medical every 6 Branch (six) hours as needed for Nausea and Vomiting (N/V). promethazin Yes [id number] 50mg Insert 1 Univers e 50 mg 6-22 Suppositor ity of suppository 00:00: y [place] 00 rectum Medical every 6 Branch (six) hours as needed for Nausea and Vomiting (N/V). promethazin Yes [id number] 50mg Insert 1 Univers e 50 mg 6-22 Suppositor ity of suppository 00:00: y [place] 00 rectum Medical every 6 Branch (six) hours as needed for Nausea and Vomiting (N/V). promethazin Yes [id number] 50mg Insert 1 Univers e 50 mg 6-22 Suppositor ity of suppository 00:00: y [place] 00 rectum Medical every 6 Branch (six) hours as needed for Nausea and Vomiting (N/V). promethazin Yes [id number] 50mg Insert 1 Univers e 50 mg 6-22 Suppositor ity of suppository 00:00: y [place] 00 rectum Medical every 6 Branch (six) hours as needed for Nausea and Vomiting (N/V). promethazin Yes [id number] 50mg Insert 1 Univers e 50 mg 6-22 Suppositor ity of suppository 00:00: y [place] 00 rectum Medical every 6 Branch (six) hours as needed for Nausea and Vomiting (N/V). promethazin Yes [id number] 50mg Insert 1 Univers e 50 mg 6-22 Suppositor ity of suppository 00:00: y [place] 00 rectum Medical every 6 Branch (six) hours as needed for Nausea and Vomiting (N/V). promethazin Yes [id number] 50mg Insert 1 Univers e 50 mg 6-22 Suppositor ity of suppository 00:00: y [place] 00 rectum Medical every 6 Branch (six) hours as needed for Nausea and Vomiting (N/V). promethazin Yes [id number] 50mg Insert 1 Univers e 50 mg 6-22 Suppositor ity of suppository 00:00: y [place] 00 rectum Medical every 6 Branch (six) hours as needed for Nausea and Vomiting (N/V). promethazin Yes [id number] 50mg Insert 1 Univers e 50 mg 6-22 Suppositor ity of suppository 00:00: y [place] 00 rectum Medical every 6 Branch (six) hours as needed for Nausea and Vomiting (N/V). promethazin Yes [id number] 50mg Insert 1 Univers e 50 mg 6-22 Suppositor ity of suppository 00:00: y [place] 00 rectum Medical every 6 Branch (six) hours as needed for Nausea and Vomiting (N/V). promethazin Yes [id number] 50mg Insert 1 Univers e 50 mg 6-22 Suppositor ity of suppository 00:00: y [place] 00 rectum Medical every 6 Branch (six) hours as needed for Nausea and Vomiting (N/V). promethazin Yes [id number] 50mg Insert 1 Univers e 50 mg 6-22 Suppositor ity of suppository 00:00: y [place] 00 rectum Medical every 6 Branch (six) hours as needed for Nausea and Vomiting (N/V). promethazin Yes [id number] 50mg Insert 1 Univers e 50 mg 6-22 Suppositor ity of suppository 00:00: y [place] 00 rectum Medical every 6 Branch (six) hours as needed for Nausea and Vomiting (N/V). promethazin Yes [id number] 50mg Insert 1 Univers e 50 mg 6-22 Suppositor ity of suppository 00:00: y [place] 00 rectum Medical every 6 Branch (six) hours as needed for Nausea and Vomiting (N/V). promethazin Yes [id number] 50mg Insert 1 Univers e 50 mg 6-22 Suppositor ity of suppository 00:00: y [place] 00 rectum Medical every 6 Branch (six) hours as needed for Nausea and Vomiting (N/V). promethazin Yes [id number] 50mg Insert 1 Univers e 50 mg 6-22 Suppositor ity of suppository 00:00: y [place] 00 rectum Medical every 6 Branch (six) hours as needed for Nausea and Vomiting (N/V). promethazin Yes [id number] 50mg Insert 1 [facility] e 50 mg 6-22 Suppositor ity of suppository 00:00: y [place] rectum Medical every 6 Branch (six) hours as needed for Nausea and Vomiting (N/V). promethazin 2021- No [id number] 50mg Insert 1 Univers e 50 mg 10-04 Suppositor ity o f suppository 00:00: 00:00 y into [place] 00 :00 rectum Medical every 6 Branch (six) hours as needed for Nausea and Vomiting (N/V). ondansetron 2020- No [id number] 4mg Take 1 Univers (ZOFRAN 10-04 06-30 [...] 1{capsu TID Gabapentin 300 MG 300 MG 6- le} 300 MG 00:00: 00 losartan Yes TAKE [address] [facility] (COZAAR) 5-28 TABLET BY [facility] 100 MG 13:24: MOUTH Medical tablet 24 EVERY DAY Center diazePAM 2020-0 Yes 2mg Take [address] [facility] (VALIUM) 2 5-28 by mouth 2 [facility] MG tablet 13:24: (two) Medical 24 times Center daily as needed for Anxiety. diazePAM 2020-0 Yes 2mg Take 2 mg [...] 24 EVERY DAY Center pancrelipas 2021- No [id number]{ Take [address] [facility], 5-28 05-28 [...] 2 (two) times daily. pancrelipas 2020-2021- No [id number]{ Take [address] [facility], - 05-28 lipase} capsules [facility] 00:00: 23:59 (72,000 Me dical yl, (CREON) 00 :00 units of Cent er 24,000-76,0 lipase 00 -120,000 total) by unit CpDR mouth 3 capsule (three) times daily with meals. ursodioL 2021- No 500mg Q.5D Take 1 [facility] 09[facility]09 05-28 [facility] 500 MG 00:00: 23:59 (500 mg Medical tablet 00 :00 total) by Center mouth 2 (two) times daily. pancrelipas 2020-2021- No [id number]{ Take [address] [facility], - 05-28 [...] Center mouth 2 (two) times daily. pancrelipas 2020-0 2021- No [id number]{ Take [address] [facility], - 05-28 lipase} capsules [facility]Prot[facility] 00:00: 23:59 (72,000 Me dical yl, (CREON) 00 :00 units of Cent er 24,000-76,0 lipase 00 -120,000 total) by unit CpDR mouth 3 capsule (three) times daily with meals. ursodioL 2020-0 2021- No 500mg Q.5D Take 1 [facility] 5-28 05-28 [facility] 500 MG 00:00: 23:59 (500 mg Medical tablet 00 :00 total) by Center mouth 2 (two) times daily. pancrelipas 2020-2021- No [id number]{ Take [address] [facility], 09-09 lipase} [...] 2 (two) times daily. pancrelipas 2021- No [id number]{ Take [address] [facility], 09-09 lipase} [...] Fri Med ical ing tablet 08/05/20 at Bra n[facility] 4 mg 0930, Routine tiZANidine 2020-0 Yes [...] mouth Medical tablet 00 nightly. Center tiZANidine 0 Yes 2mg Q.5D Take [address] [facility] (ZANAFLEX) 4-19 by mouth 2 Sammy es 2 MG tablet 00:00: (two) Medic al 00 times Center daily. traZODone 2020-0 Yes 100mg QD Take [address] [facility] (DESYREL) 4-19 mg by [facility] 100 MG 00:00: mouth Medical tablet 00 nightly. Center traZODone 2020-0 Yes 100mg Take 100 [facility] vers 100 mg 4-05 mg by ity of tablet 13:30: mouth at [place] [address] bedtime. Medical Branch traZODone 0 Yes 100mg Take 100 Uni vers 100 mg 4-05 mg by ity of tablet 13:30: mouth at [place] [address] bedtime. Medical Branch traZODone 0 Yes 100mg Take 100 Uni vers 100 mg 4-05 mg by ity of tablet 13:30: mouth at [place] [address] bedtime. Medical Branch triamcinolo 0 Yes PRN, [facility] ne 4-05 Starting ity of acetonide 12:07: [place] (KENALOG[place] 00 at 0707, Medica l injection Until Branch Discontinu ed, Routine, Intra-op iohexoL Yes PRN, Univers (OMNIPAQUE 4-05 Starting ity o f 300-50 mL)) 12:07: 07/18/20 [place] injection 00 at 0707, Medica l Until Branch Discontinu ed, Routine, Intra-op lidocaine 0 Yes PRN, Univers 1% -05 Starting ity of (XYLOCAINE) 12:07: 07/18/20 [place] 10 mg/mL (1 00 at 0707, Medi brandy %) Until Branch injection Discontinu ed, Routine, Intra-op triamcinolo 2020- No PRN, Unive ne 4- 04-05 Starting ity of acetonide 12:07: 15:30 07/18/20 [place] (KENALOG) 00 :22 at 0707, Medica l injection Until Sat Branc h 07/18/20 at 1030, Routine, Intra-op iohexoL 2020- No PRN, Univers (OMNIPAQUE 07-18 Starting ity of 300-50 mL)) 12:07: 15:30 [facility] 07/18/20 [place] injection 00 :22 at 0707, Medica l Until Mon Branch 07/18/20 at 1030, Routine, Intra-op lidocaine 2020- No PRN, Univers 1% 07-18 Starting ity of (XYLOCAINE) 12:07: 15:30 [facility] 07/18/20 [place] 10 mg/mL (1 00 :22 at 0707, Medi brandy %) Until Sat Branch injection 07/18/20 at 1030, Routine, Intra-op escitalopra 2020- No 20mg Take 20 mg Univers m oxalate 07-18- by mouth ity o f (LEXAPRO) 11:43: [...] 22 :00 times Medical daily. Branch lithium No 300mg Take 300 Univ ers carbonate [...] mouth ity of tablet 11:42: 00:00 daily. [place] 27 :00 Medical Branch carvediloL 2020- No 12.5mg Take 12.5 [facility] 12.5 mg 4-05 04-05 mg by ity of tablet 11:42: 00:00 mouth 2 [place] 27 :00 (two) Medical times Platter daily with meals. traZODone Yes 100mg Take 100 Uni vers 100 mg 4-05 mg by ity of tablet 11:28: mouth at [place] 50 bedtime. Medical Branch losartan Yes 100mg 100 mg, Unive rs (COZAAR) 07-08 Oral, ity of tablet 100 14:00: DAILY, [place] mg 00 First dose Medical on Sat Platter 07/08/20 at 0900, Until Discontinu ed, Routine ondansetron 2020- No 4mg 4 mg, Slow Univers (ZOFRAN 07-08 IV Push, ity of (PF)) 03:15: 02:29 ONCE, 1 [place] injection 4 00 :00 dose, [facility] Med ical mg 07/07/20 at Branch 2215, [facility] morpHINE 2020- No 4mg 4 mg, Slow Un you injection 4 07-08 IV Push, ity of mg 03:15: 02:28 ONCE, 1 [place] 00 :00 dose, [facility] Medical 07/07/20 at Branch 2215, STAT morpHINE 2020- No 4mg 4 mg, Slow Un you injection 4 07-08 IV Push, ity of mg 01:45: 01:05 ONCE, 1 [place] 00 :00 dose, [facility] Medical 07/07/20 at Branch 2045, STAT iohexol 2020- No [id number] 120mL 120 mL, Univers (OMNIPAQUE 07-08 Intravenou it y of 350 01:00: 00:55 s, ONCE, 1 [place] BULK-150 00 :00 dose, [facility]ian Medica l mL) 07/07/20 at Platter injection 2000, 120 mL Routine NaCl 0.9% 2020- No 1000mL at 999 Uni vers (NS) bolus 3-26 03-26 mL/hr, ity of infusion 01:00: 02:24 1,000 mL, [place] as 1,000 mL 00 :00 IV Medical Infusion, Branch ONCE, 1 dose, [place] 07/07/20 at 2000, STAT ondansetron 2020-0 2021- No 4mg 4 mg, Slow [facility] (ZOFRAN 07-08-26 IV Push, ity of (PF)) 01:00: 00:25 ONCE, 1 [place] injection 4 00 :00 dose, [place] Med ical mg 07/07/20 at Branch 2000, [facility] ondansetron 2020-0 Yes [id number] 4mg Take 1 [facility] (ZOFRAN 3-25 tablet by ity of ODT) 4 mg 00:00: mouth [place] disintegrat 00 every 8 Medic al ing tablet (eight) Branch hours as needed for Nausea and Vomiting (N/V). ondansetron 2020-0 Yes [id number] 4mg Take 1 [facility] (ZOFRAN 3-25 tablet by ity of ODT) 4 mg 00:00: mouth [place] disintegrat 00 every 8 Medic al ing tablet (eight) Branch hours as needed for Nausea and Vomiting (N/V). ondansetron 2020-0 Yes [id number] 4mg Take 1 [facility] (ZOFRAN 3-25 tablet by ity of ODT) 4 mg 00:00: mouth [place] disintegrat 00 every 8 Medic al ing tablet (eight) Branch hours as needed for Nausea and Vomiting (N/V). ondansetron 2020-0 Yes [id number] 4mg Take 1 [facility] (ZOFRAN 3-25 tablet by ity of ODT) 4 mg 00:00: mouth [place] disintegrat 00 every 8 Medic al ing tablet (eight) Branch hours as needed for Nausea and Vomiting (N/V). ondansetron 2020-0 Yes [id number] 4mg Take 1 [facility] (ZOFRAN 3-25 tablet by ity of ODT) 4 mg 00:00: mouth [place] disintegrat 00 every 8 Medic al ing tablet (eight) Branch hours as needed for Nausea and Vomiting (N/V). ondansetron 2020-0 Yes [id number] 4mg Take 1 [facility] (ZOFRAN 3-25 tablet by ity of ODT) 4 mg 00:00: mouth [place] disintegrat 00 every 8 Medic al ing tablet (eight) Branch hours as needed for Nausea and Vomiting (N/V). ondansetron 2021-0 Yes [id number] 4mg Take 1 [facility] (ZOFRAN 3-25 tablet by ity of ODT) 4 mg 00:00: mouth [place] disintegrat 00 every 8 Medic al ing tablet (eight) Branch hours as needed for Nausea and Vomiting (N/V). ondansetron 2021-0 Yes [id number] 4mg Take 1 [facility] (ZOFRAN 3-25 tablet by ity of ODT) 4 mg 00:00: mouth [place] disintegrat 00 every 8 Medic al ing tablet (eight) Branch hours as needed for Nausea and Vomiting (N/V). ondansetron 2021-0 Yes [id number] 4mg Take 1 [facility] (ZOFRAN 3-25 tablet by ity of ODT) 4 mg 00:00: mouth [place] disintegrat 00 every 8 Medic al ing tablet (eight) Branch hours as needed for Nausea and Vomiting (N/V). ondansetron 2021-0 Yes [id number] 4mg Take 1 Univers (ZOFRAN 3-25 tablet by ity of ODT) 4 mg 00:00: mouth [place] disintegrat 00 every 8 Medic al ing tablet (eight) Branch hours as needed for Nausea and Vomiting (N/V). ondansetron 2021-0 Yes [id number] 4mg Take 1 [facility] (ZOFRAN 3-25 tablet by ity of ODT) 4 mg 00:00: mouth [place] disintegrat 00 every 8 Medic al ing tablet (eight) Branch hours as needed for Nausea and Vomiting (N/V). ondansetron 2021-0 Yes [id number] 4mg Take 1 [facility] (ZOFRAN 3-25 tablet by ity of ODT) 4 mg 00:00: mouth [place] disintegrat 00 every 8 Medic al ing tablet (eight) Branch hours as needed for Nausea and Vomiting (N/V). ondansetron 2021-0 Yes [id number] 4mg Take 1 [facility] (ZOFRAN 3-25 tablet by ity of ODT) 4 mg 00:00: mouth [place] disintegrat 00 every 8 Medic al ing tablet (eight) Branch hours as needed for Nausea and Vomiting (N/V). ondansetron 2021-0 Yes [id number] 4mg Take 1 [facility] (ZOFRAN 3-25 tablet by ity of ODT) 4 mg 00:00: mouth [place] disintegrat 00 every 8 Medic al ing tablet (eight) Branch hours as needed for Nausea and Vomiting (N/V). ondansetron 2020-0 Yes [id number] 4mg Take 1 [facility] (ZOFRAN 3-25 tablet by ity of ODT) 4 mg 00:00: mouth [place] disintegrat 00 every 8 Medic al ing tablet (eight) Branch hours as needed for Nausea and Vomiting (N/V). ondansetron 2020-0 Yes [id number] 4mg Take 1 [facility] (ZOFRAN 3-25 tablet by ity of ODT) 4 mg 00:00: mouth [place] disintegrat 00 every 8 Medic al ing tablet (eight) Branch hours as needed for Nausea and Vomiting (N/V). ondansetron 2020-0 Yes [id number] 4mg Take 1 [facility] (ZOFRAN 3-25 tablet by ity of ODT) 4 mg 00:00: mouth [place] disintegrat 00 every 8 Medic al ing tablet (eight) Branch hours as needed for Nausea and Vomiting (N/V). ondansetron 2020-0 Yes [id number] 4mg Take 1 [facility] (ZOFRAN 3-25 tablet by ity of ODT) 4 mg 00:00: mouth [place] disintegrat 00 every 8 Medic al ing tablet (eight) Branch hours as needed for Nausea and Vomiting (N/V). ondansetron 2020-0 Yes [id number] 4mg Take 1 [facility] (ZOFRAN 3-25 tablet by ity of ODT) 4 mg 00:00: mouth [place] disintegrat 00 every 8 Medic al ing tablet (eight) Branch hours as needed for Nausea and Vomiting (N/V). ondansetron 2020-0 2021- No [id number] 4mg Take 1 Univers (ZOFRAN 3-25 12-06 [...] 3 it y of capsule 13:47: (three) [place] [address] times Medical daily. Branch meloxicam 0 Yes 7.5mg Take 7.5 Uni vers 7.5 mg 3-22 mg by ity of tablet 13:47: mouth [place] 04 daily. Medical Branch lithium 0 Yes 300mg Take 300 Unive rs carbonate 3-22 mg by ity of 300 mg 13:47: mouth 2 [place] capsule 04 (two) Medical times Platter daily. temazepam 0 Yes 15mg Take 15 mg Un you 15 mg 3-22 by mouth ity of capsule 13:47: at [place]time [place] 04 as needed Medical for Branch Insomnia. ursodioL 0 Yes 500mg Take 500 Univ ers 500 mg 3-22 mg by ity of tablet 13:47: mouth 2 [place] (two) Medical times Platter daily. traZODone 0 Yes 100mg Take 100 Uni vers 100 mg 3-22 mg by ity of tablet 13:47: mouth at [place] [address] bedtime. Medical Branch ARIPiprazol Yes 10mg Take 10 mg Univers e 10 mg 3-22 by mouth ity of tablet 13:47: daily. [place] Medical Branch carvediloL Yes 12.5mg Take 12.5 Univers 12.5 mg 3-22 mg by ity of tablet 13:47: mouth 2 [place] (two) Medical times Platter daily with meals. lactated Yes 1000mL at 100 Unive rs ringers [...] Routine, Pain (scale 7-10), PACU FENTanyl PF 0 Yes 25ug 25 [...] Yes 1000mg 1,000 mg, U nivers (ANCEF) 322 IV ity of 1,000 mg in 12:00: Piggyback, [place] NaCl 0.9% 00 Q8H ABX, Medica l (NS) 50 mL First dose Bra [facility] MINI-BAG on Sat07/04/20 at 0700, Until Discontinu [...] ity of 400 mg 16:25: mouth at [place] tablet 42 bedtime. Medical Branch escitalopra 0 [...] mg 42 bedtime. Medical tablet Branch divalproex 2021-0 Yes [...] 3 it y of capsule 16:25: (three) [place] 42 times Medical daily. Branch meloxicam Yes 7.5mg Take 7.5 Uni vers 7.5 mg 3-08 mg by ity of tablet 16:25: mouth [place] 42 daily. Medical Branch lithium Yes 300mg Take 300 Unive rs carbonate 3-08 mg by ity of 300 mg 16:25: mouth 2 [place] capsule 42 (two) Medical times Branch daily. temazepam Yes 15mg Take 15 mg Un you 15 mg 3-08 by mouth ity of capsule 16:25: at bedtime [facility] 42 as needed Medical for Branch Insomnia. ursodioL Yes 500mg Take 500 Univ ers 500 mg 3-08 mg by ity of tablet 16:25: mouth 2 [place] 42 (two) Medical times Platter daily. ondansetron Yes 4mg 4 mg, Slow [...] Discontinu mg/mL) ed, injection Routine, Intra-op lidocaine 2021-0 Yes PRN, Univers 1% 3-08 Starting ity of (XYLOCAINE) 14:09: 06/20/20 [place] 10 mg/mL (1 00 at 0809, Medi brandy %) Until Branch injection Discontinu ed, Routine, Intra-op propofoL IV 2020- No Intravenou Univers infusion 06-20 03-08 s, ONCE ity of 14:05: 14:12 INTRA [place] 00 :42 PROCEDURE, Medical Starting Branch [facility] 06/20/20 at 0805, Until Sat06/20/20 at 0812, Routine, Intra-op lactated 2020- No IV Univers ringers IV 06-20 03-08 Infusion, ity of infusion 14:03: 14:12 CONTINUOUS [place] 00 :42 PRN, Medical Starting Branch [facility] 06/20/20 at 0803, Until Sat06/20/20 at 0812, Routine, Intra-op lactated 2020- No 1000mL at 42 Unive rs ringers IV 06-20 03-08 mL/hr, ity of infusion 13:00: 13:17 1,000 mL, [place] as 1,000 mL 00 :00 IV Medical Infusion, Branch ONCE, 1 dose, [facility] 06/20/20 at 0700, Routine, DSU Pre-op LOSARTAN Yes [...] [place] tablet 33 daily. Medical Branch tiZANidine 2021-0 Yes 4mg [...] 56 (two) Medical times Branch daily. chlordiazeP 202-0 Yes 10mg Take 10 mg Univers OXIDE [...] 3 it y of capsule 16:05: (three) [place] 19 times Medical daily. Branch butalbital- 2020- [...] IV ity of (REGLAN) 22:45: 21:51 Push, [place] injection 00 :00 ONCE, 1 Medical 10 [...] dose, 05/06/20 at 1545, [facility] butalbital- Yes [id number] 1{tbl} Take 1 [facility] acetaminoph 1-22 tablet by ity of en-caff 00:00: mouth [place] 50-325-40 00 every 6 Medical mg tablet (six) Branch hours as needed for Pain (scale 7-10) or Other (headache) . butalbital- Yes [id number] 1{tbl} Take 1 [facility] acetaminoph 1-22 tablet by ity of en-caff 00:00: mouth [place] 50-325-40 00 every 6 Medical mg tablet (six) Branch hours as needed for Pain (scale 7-10) or Other (headache) . butalbital- Yes [id number] 1{tbl} Take 1 [facility] acetaminoph 1-22 tablet by ity of en-caff 00:00: mouth [place] 50-325-40 00 every 6 Medical mg tablet (six) Branch hours as needed for Pain (scale 7-10) or Other (headache) . butalbital- Yes [id number] 1{tbl} Take 1 [facility] acetaminoph 1-22 tablet by ity of en-caff 00:00: mouth [place] 50-325-40 00 every 6 Medical mg tablet (six) Branch hours as needed for Pain (scale 7-10) or Other (headache) . butalbital- Yes [id number] 1{tbl} Take 1 [facility] acetaminoph 1-22 tablet by ity of en-caff 00:00: mouth [place] 50-325-40 00 every 6 Medical mg tablet (six) Branch hours as needed for Pain (scale 7-10) or Other (headache) . butalbital- Yes [id number] 1{tbl} Take 1 [facility] acetaminoph 1-22 tablet by ity of en-caff 00:00: mouth [place] 50-325-40 00 every 6 Medical mg tablet (six) Branch hours as needed for Pain (scale 7-10) or Other (headache) . butalbital- Yes [id number] 1{tbl} Take 1 [facility] acetaminoph 1-22 tablet by ity of en-caff 00:00: mouth [place] 50-325-40 00 every 6 Medical mg tablet (six) Branch hours as needed for Pain (scale 7-10) or Other (headache) . butalbital- Yes [id number] 1{tbl} Take 1 [facility] acetaminoph 1-22 tablet by ity of en-caff 00:00: mouth [place] 50-325-40 00 every 6 Medical mg tablet (six) Branch hours as needed for Pain (scale 7-10) or Other (headache) . butalbital- Yes [id number] 1{tbl} Take 1 [facility] acetaminoph 1-22 tablet by ity of en-caff 00:00: mouth [place] 50-325-40 00 every 6 Medical mg tablet (six) Branch hours as needed for Pain (scale 7-10) or Other (headache) . butalbital- Yes [id number] 1{tbl} Take 1 [facility] acetaminoph 1-22 tablet by ity of en-caff 00:00: mouth [place] 50-325-40 00 every 6 Medical mg tablet (six) Branch hours as needed for Pain (scale 7-10) or Other (headache) . butalbital- Yes [id number] 1{tbl} Take 1 [facility] acetaminoph 1-22 tablet by ity of en-caff 00:00: mouth [place] 50-325-40 00 every 6 Medical mg tablet (six) Branch hours as needed for Pain (scale 7-10) or Other (headache) . butalbital- Yes [id number] 1{tbl} Take 1 [facility] acetaminoph 1-22 tablet by ity of en-caff 00:00: mouth [place] 50-325-40 00 every 6 Medical mg tablet (six) Branch hours as needed for Pain (scale 7-10) or Other (headache) . butalbital- Yes [id number] 1{tbl} Take 1 [facility] acetaminoph 1-22 tablet by ity of en-caff 00:00: mouth [place] 50-325-40 00 every 6 Medical mg tablet (six) Branch hours as needed for Pain (scale 7-10) or Other (headache) . butalbital- No [id number] 1{tbl} Take 1 [facility] acetaminoph 1-22 04-05 tablet by it y of en-caff 00:00: 00:00 mouth [place] 50-325-40 00 :00 every 6 Medical mg tablet (six) Branch hours as needed for Pain (scale 7-10) or Other (headache) . butalbital- 2020-0 2020- No [id number] 1{tbl} Take 1 [facility] acetaminoph 05-06 04-05 [...] of 350 06:15: 06:07 s, ONCE, 1 [place] BULK-100 00 :00 dose, Sat Medica l mL) 03/26/20 Branch injection at 0015, 120 mL Routine morpHINE 2019-04- No 4mg 4 mg, Slow Un you injection 4 05-27 IV Push, ity of mg 06:15: 05:09 ONCE, 1 [place] 00 :00 dose, Sat Medical 03/26/20 Branch at 0015, STAT pantoprazol 2019-04- No 40mg 40 mg, IV Univers e 05-27 Piggyback, ity of (PROTONIX) 05:00: 04:27 ONCE, 1 [place] 40 mg in 00 :00 dose, Fri Medica l NaCl 0.9% 03/25/20 Branch (NS) 100 mL at 2300, MINI-BAG 100 mL ondansetron 2019-04- No 4mg 4 mg, Slow Univers (ZOFRAN 2-12 12-12 IV Push, ity of (PF)) 04:45: 03:38 [...] Indication s: acute pain erythromyci 2019-04 No [id number] .5[in_u Place 0.5 Univers n 5 mg/gram - 12-20 [id number] s] Inches in ity of (0.5 %) [...] 10 (three) Medical times Branch daily. QUEtiapine 2019- Yes 400mg Take 400 Un you (SEROQUEL) [...] [place] tablet 10 daily. Medical Branch tiZANidine 2020 Yes 4mg Take 4 mg Un you [...] 10 (two) Medical times Branch daily. temazepam 2019- Yes 15mg Take 15 mg Un you [...] 10 (two) Medical times Branch daily. temazepam 2019- Yes 15mg Take 15 mg Un you [...] 1 [place] mg 00 :00 dose, [facility] 02/08/20 Branch at 0845, Routine amLODIPine 2019-04 Yes [id number] 10mg Take 1 Univers 10 mg 0-26 tablet by ity of tablet 00:00: mouth [place] 00 daily. Medical Branch hydrALAZINE 2019- Yes [id number] 50mg Take 1 Univers 50 mg 0-26 tablet by ity of tablet 00:00: mouth [place] 00 every 8 Medical (eight) Branch hours. aspirin 81 2019- Yes [id number] 81mg Take 1 Univers mg chewable 0-26 tablet by ity of tablet 00:00: mouth [place] 00 daily. Medical Branch amLODIPine 2019- Yes [id number] 10mg Take 1 [facility] 10 mg 0-26 tablet by ity of tablet 00:00: mouth [place] 00 daily. Medical Branch hydrALAZINE 2019- Yes [id number] 50mg Take 1 [facility] 50 mg 0-26 tablet by ity of tablet 00:00: mouth [place] 00 every 8 Medical (eight) Branch hours. aspirin 81 2019-04 Yes [id number] 81mg Take 1 [facility] mg chewable 0-26 tablet by ity of tablet 00:00: mouth [place] 00 daily. Medical Branch amLODIPine 2019-04 Yes [id number] 10mg Take 1 [facility] 10 mg 0-26 tablet by ity of tablet 00:00: mouth [place] 00 daily. Medical Branch hydrALAZINE 2019-04 Yes [id number] 50mg Take 1 [facility] 50 mg 0-26 tablet by ity of tablet 00:00: mouth [place] 00 every 8 Medical (eight) Branch hours. aspirin 81 2019-04 Yes [id number] 81mg Take 1 [facility] mg chewable 0-26 tablet by ity of tablet 00:00: mouth [place] 00 daily. Medical Branch amLODIPine 2019-04 Yes [id number] 10mg Take 1 [facility] 10 mg 0-26 tablet by ity of tablet 00:00: mouth [place] 00 daily. Medical Branch hydrALAZINE 2019-04 Yes [id number] 50mg Take 1 [facility] 50 mg 0-26 tablet by ity of tablet 00:00: mouth [place] 00 every 8 Medical (eight) Branch hours. aspirin 81 2019-04 Yes [id number] 81mg Take 1 [facility] mg chewable 0-26 tablet by ity of tablet 00:00: mouth [place] 00 daily. Medical Branch amLODIPine 2019-04 Yes [id number] 10mg Take 1 [facility] 10 mg 0-26 tablet by ity of tablet 00:00: mouth [place] 00 daily. Medical Branch hydrALAZINE 2019-04 Yes [id number] 50mg Take 1 [facility] 50 mg 0-26 tablet by ity of tablet 00:00: mouth [place] 00 every 8 Medical (eight) Branch hours. aspirin 81 2019-04 Yes [id number] 81mg Take 1 [facility] mg chewable 0-26 tablet by ity of tablet 00:00: mouth [place] 00 daily. Medical Branch amLODIPine 2019-04 Yes [id number] 10mg Take 1 [facility] 10 mg 0-26 tablet by ity of tablet 00:00: mouth [place] 00 daily. Medical Branch hydrALAZINE 2019-04 Yes [id number] 50mg Take 1 [facility] 50 mg 0-26 tablet by ity of tablet 00:00: mouth [place] 00 every 8 Medical (eight) Branch hours. aspirin 81 2019- Yes [id number] 81mg Take 1 [facility] mg chewable 0-26 tablet by ity of tablet 00:00: mouth [place] 00 daily. Medical Branch amLODIPine 2019- Yes [id number] 10mg Take 1 [facility] 10 mg 0-26 tablet by ity of tablet 00:00: mouth [place] 00 daily. Medical Branch hydrALAZINE 2019- Yes [id number] 50mg Take 1 [facility] 50 mg 0-26 tablet by ity of tablet 00:00: mouth [place] 00 every 8 Medical (eight) Branch hours. aspirin 81 2019-04 Yes [id number] 81mg Take 1 [facility] mg chewable 0-26 tablet by ity of tablet 00:00: mouth [place] 00 daily. Medical Branch amLODIPine 2019-04 Yes [id number] 10mg Take 1 [facility] 10 mg 0-26 tablet by ity of tablet 00:00: mouth [place] 00 daily. Medical Branch hydrALAZINE 2019-04 Yes [id number] 50mg Take 1 [facility] 50 mg 0-26 tablet by ity of tablet 00:00: mouth [place] 00 every 8 Medical (eight) Branch hours. aspirin 81 2019-04 Yes [id number] 81mg Take 1 [facility] mg chewable 0-26 tablet by ity of tablet 00:00: mouth [place] 00 daily. Medical Branch amLODIPine 2019-04 Yes [id number] 10mg Take 1 [facility] 10 mg 0-26 tablet by ity of tablet 00:00: mouth [place] 00 daily. Medical Branch hydrALAZINE 2019-04 Yes [id number] 50mg Take 1 [facility] 50 mg 0-26 tablet by ity of tablet 00:00: mouth [place] 00 every 8 Medical (eight) Branch hours. aspirin 81 2019-04 Yes [id number] 81mg Take 1 [facility] mg chewable 0-26 tablet by ity of tablet 00:00: mouth [place] 00 daily. Medical Branch amLODIPine 2019-04 Yes [id number] 10mg Take 1 [facility] 10 mg 0-26 tablet by ity of tablet 00:00: mouth [place] 00 daily. Medical Branch hydrALAZINE 2019- Yes [id number] 50mg Take 1 [facility] 50 mg 0-26 tablet by ity of tablet 00:00: mouth [place] 00 every 8 Medical (eight) Branch hours. aspirin 81 2020-1 Yes [id number] 81mg Take 1 Univers mg chewable 0-26 tablet by ity of tablet 00:00: mouth [place] 00 daily. Medical Branch amLODIPine 2019- Yes [id number] 10mg Take 1 [facility] 10 mg 0-26 tablet by ity of tablet 00:00: mouth [place] 00 daily. Medical Branch hydrALAZINE 2019- Yes [id number] 50mg Take 1 Univers 50 mg 0-26 tablet by ity of tablet 00:00: mouth [place] 00 every 8 Medical (eight) Branch hours. aspirin 81 2019- Yes [id number] 81mg Take 1 [facility] mg chewable 0-26 tablet by ity of tablet 00:00: mouth [place] 00 daily. Medical Branch amLODIPine 2019- Yes [id number] 10mg Take 1 [facility] 10 mg 0-26 tablet by ity of tablet 00:00: mouth [place] 00 daily. Medical Branch hydrALAZINE 2019- Yes [id number] 50mg Take 1 [facility] 50 mg 0-26 tablet by ity of tablet 00:00: mouth [place] 00 every 8 Medical (eight) Branch hours. aspirin 81 2019-04 Yes [id number] 81mg Take 1 [facility] mg chewable 0-26 tablet by ity of tablet 00:00: mouth [place] 00 daily. Medical Branch amLODIPine 2019- Yes [id number] 10mg Take 1 [facility] 10 mg 0-26 tablet by ity of tablet 00:00: mouth [place] 00 daily. Medical Branch hydrALAZINE 2019- Yes [id number] 50mg Take 1 [facility] 50 mg 0-26 tablet by ity of tablet 00:00: mouth [place] 00 every 8 Medical (eight) Branch hours. aspirin 81 2019-1 Yes [id number] 81mg Take 1 [facility] mg chewable 0-26 tablet by ity of tablet 00:00: mouth [place] 00 daily. Medical Branch amLODIPine 2019- Yes [id number] 10mg Take 1 [facility] 10 mg 0-26 tablet by ity of tablet 00:00: mouth [place] 00 daily. Medical Branch hydrALAZINE 2019- Yes [id number] 50mg Take 1 [facility] 50 mg 0-26 tablet by ity of tablet 00:00: mouth [place] 00 every 8 Medical (eight) Branch hours. aspirin 81 2019- Yes [id number] 81mg Take 1 [facility] mg chewable 0-26 tablet by ity of tablet 00:00: mouth [place] 00 daily. Medical Branch amLODIPine 2019-04 Yes [id number] 10mg Take 1 [facility] 10 mg 0-26 tablet by ity of tablet 00:00: mouth [place] 00 daily. Medical Branch hydrALAZINE 2019-04 Yes [id number] 50mg Take 1 [facility] 50 mg 0-26 tablet by ity of tablet 00:00: mouth [place] 00 every 8 Medical (eight) Branch hours. aspirin 81 2019-04 Yes [id number] 81mg Take 1 [facility] mg chewable 0-26 tablet by ity of tablet 00:00: mouth [place] 00 daily. Medical Branch amLODIPine 2019-04 Yes [id number] 10mg Take 1 [facility] 10 mg 0-26 tablet by ity of tablet 00:00: mouth [place] 00 daily. Medical Branch hydrALAZINE 2019-04 Yes [id number] 50mg Take 1 [facility] 50 mg 0-26 tablet by ity of tablet 00:00: mouth [place] 00 every 8 Medical (eight) Branch hours. aspirin 81 2019-04 Yes [id number] 81mg Take 1 [facility] mg chewable 0-26 tablet by ity of tablet 00:00: mouth [place] 00 daily. Medical Branch amLODIPine 2019-04 Yes [id number] 10mg Take 1 [facility] 10 mg 0-26 tablet by ity of tablet 00:00: mouth [place] 00 daily. Medical Branch hydrALAZINE 2019-04 Yes [id number] 50mg Take 1 [facility] 50 mg 0-26 tablet by ity of tablet 00:00: mouth [place] 00 every 8 Medical (eight) Branch hours. aspirin 81 2019-04 Yes [id number] 81mg Take 1 [facility] mg chewable 0-26 tablet by ity of tablet 00:00: mouth [place] 00 daily. Medical Branch amLODIPine 2019-04 Yes [id number] 10mg Take 1 [facility] 10 mg 0-26 tablet by ity of tablet 00:00: mouth [place] 00 daily. Medical Branch hydrALAZINE 2019-04 Yes [id number] 50mg Take 1 [facility] 50 mg 0-26 tablet by ity of tablet 00:00: mouth [place] 00 every 8 Medical (eight) Branch hours. aspirin 81 2019-04 Yes [id number] 81mg Take 1 [facility] mg chewable 0-26 tablet by ity of tablet 00:00: mouth [place] 00 daily. Medical Branch amLODIPine 2019-04- No [id number] 10mg Take 1 [facility] 10 mg 0-26 04-05 tablet by ity of tablet 00:00: 00:00 mouth [place] 00 :00 daily. Medical Branch hydrALAZINE 2019-04- No [id number] 50mg Take 1 [facility] 50 mg 0-26 04-05 tablet by ity of tablet 00:00: 00:00 mouth [place] 00 :00 every 8 Medical (eight) Branch hours. aspirin 81 2019-04- No [id number] 81mg Take 1 [facility] mg chewable 0-26 04-05 tablet by it y of tablet 00:00: 00:00 mouth [place] 00 :00 daily. Medical Branch amLODIPine 2019-04- No [id number] 10mg Take 1 [facility] 10 mg 0-26 04-05 tablet by ity of tablet 00:00: 00:00 mouth [place] 00 :00 daily. Medical Branch hydrALAZINE 2019-04- No [id number] 50mg Take 1 [facility] 50 mg 0-26 04-05 tablet by ity of tablet 00:00: 00:00 mouth [place] 00 :00 every 8 Medical (eight) Branch hours. aspirin 81 2019-04- No [id number] 81mg Take 1 [facility] mg chewable 0-26 [...] 1mg 1 mg, Slow U nivers (ATIVAN) 002-05 IV Push, ity of injection 1 17:00: 02:13 ONCE, 1 [place] 00 :00 dose, [facility] 02/05/20 Branch at 1200, Routine lipase-prot 2019-04 Yes 3{capsu 3 capsule, Univers ease-amylas 0-23 le} Oral, TID ity of e (CREON) 14:00: MEALS, [place] 12,000-38,0 00 First dose Me dical 00 -60,000 on [place] [facility] Branch unit 02/05/20 capsule 3 at 0900, capsule Until Discontinu ed, Routine ondansetron 2019-04- No 4mg 4 mg, Univ ers (ZOFRAN) 0-03 02- Oral, ity of tablet 4 mg 22:30: 22:42 ONCE, 1 [place] 00 :[place] dose, [facility] 02/04/20 Branch at 1730, Routine ondansetron 2019-04 Yes 4mg 4 mg, Unive rs (ZOFRAN) 0-22 Oral, ity of tablet 4 mg 21:25: Q6HPRN, [place] 39 Starting Medical [facility] Branch 02/04/20 at 1625, Until Discontinu ed, Routine, Nausea and Vomiting (N/V) ondansetron 2019-04- No 4mg 4 mg, Slow Univers (ZOFRAN 002-03 IV Push, ity of (PF)) 15:15: 21:26 Q8HPRN, [place] injection 4 54 :52 Starting Medi brandy mg [facility] Branch 02/04/20 at 1015, Until [facility] 02/04/20 at 1626, Routine, Nausea and Vomiting (N/V) LORazepam 2019-04 2020- No 1mg 1 mg, Univer s (ATIVAN) 0- 10- Oral, ity of tablet 1 mg 14:30: 23:16 ONCE, 1 [place] 00 :[place] dose, [facility] 02/04/20 Branch at 0930, Routine enoxaparin 2019-04 Yes 40mg 40 mg, Unive rs (LOVENOX) 0-22 Subcutaneo ity of injection 14:00: us, DAILY, [place] 40 mg 00 First dose Medical on [facility] Branch 02/04/20 at 0900, Until Discontinu ed, Routine divalproex 2019-04 Yes 500mg 500 mg, Uni vers (DEPAKOTE) 0-22 Oral, ity of EC tablet 14:00: DAILY, [place] 500 mg 00 First dose Medical on [facility] Branch 02/04/20 at 0900, Until Discontinu ed, Routine pantoprazol 2019-04 Yes 40mg 40 mg, Univ ers e 0-22 Oral, BID, ity of (PROTONIX) 13:00: First dose [place] EC tablet 00 on [facility] 40 mg 02/04/20 Branch at 0800, Until Discontinu ed, Routine lactulose 2019-04 Yes 15mL 15 mL, Univer s (CEPHULAC) 0-22 Oral, BID, ity of solution 15 13:00: First dose [place] mL 00 (after Medical last Branch modificati on) on [facility] 02/04/20 at 0800, Until Discontinu ed, Routine traMADoL 2019-04 Yes 50mg 50 mg, Univers (ULTRAM) 0-22 Oral, ity of tablet 50 03:22: Q8HPRN, [place] mg 09 Starting Medical [facility] 02/03/20 at 2222, Until Discontinu ed, Routine, Pain (scale 4-6) lactated 2019-04 2020- No 1000mL at 100 Univ ers ringers IV 0-22 10-25 mL/hr, ity of infusion 02:15: 23:20 1,000 mL, [place] 1,000 mL 00 :45 IV Medical Infusion, Branch CONTINUOUS , Starting [facility] 02/03/20 at 2115, Until [place] 02/07/20 at 1820, Routine docusate 2019-04 Yes 100mg 100 mg, Unive rs (COLACE) 0-22 Oral, ity of capsule 100 02:01: BIDPRN, [place] mg 06 Starting Medical [facility] 02/03/20 at 2101, Until Discontinu ed, Routine, Constipati on acetaminoph 2019-04 Yes 650mg 650 mg, Un you en 0-22 Oral, ity of (TYLENOL) 01:58: Q8HPRN, [place] tablet 650 47 Starting Medic al mg [facility] 02/03/20 at 205, Until Discontinu ed, Routine, Pain (scale 1-3) ondansetron 2019-04- No 4mg 4 mg, Univ ers (ZOFRAN) 0-02-03 Oral, ity of tablet 4 mg 01:52: 21:19 Q8HPRN, [place] 29 :27 Starting Medical [facility] 02/03/20 at 2052, Until [place] 02/04/20 at 1619, Routine, Nausea and Vomiting (N/V) sennosides 2019-04 Yes 8.6mg 8.6 mg, Uni vers (SENOKOT) 0 Oral, ity of tablet 8.6 16:30: DAILY, [place] mg 00 First dose Medical on [facility] 02/03/20 at 1130, Until Discontinu ed, Routine magnesium 2019-04 Yes 400mg 400 mg, Univ ers oxide 0 Oral, ity of (MAG-OX 16:30: DAILY, [place] 400) tablet 00 First dose Me dical 400 mg on [facility] 02/03/20 at 1130, Until Discontinu ed, Routine docusate 2019-04 2020- No 100mg 100 mg, Univ ers (COLACE) 002-03 Oral, ity of capsule 100 16:30: 02:14 DAILY, [place] mg 00 :35 First dose Medical on [facility] 02/03/20 at 1130, Until Discontinu ed, Routine lactulose 2019-04 2020- No 15mL 15 mL, Unive rs (CEPHULAC) 002-02 Oral, QID, it y of solution 15 03:30: 21:01 First dose [place] mL 00 :02 on [facility] 02/02/20 Branch at 2230, Until Discontinu ed, Routine amLODIPine 2019-04 Yes 10mg 10 mg, Unive rs (NORVASC) 0-20 Oral, ity of tablet 10 22:30: DAILY, [place] mg 00 First dose Medical on [facility] 02/02/20 at 1730, Until Discontinu ed, Routine labetaloL 2019-04 Yes 10mg 10 mg, Univer s (NORMODYNE) 0-20 Slow IV ity o f injection 22:18: Push, [place] 10 mg 17 Q4HPRN, Medical Starting Branch [facility] 02/02/20 at 1718, Until Discontinu ed, Routine, [...]
F aculty member approving Restricted medication : CHANTALE GERMAINShey cloNIDine 2019-04 2020- No .1mg 0.1 mg, Univ ers (CATAPRES) 0-20 10-20 Oral, ity of tablet 0.1 06:00: 05:21 ONCE, 1 [place] mg 00 :00 dose, [facility] 02/02/20 Branch at 0100, Routine D5W [...] IV Medical Infusion, Branch CONTINUOUS , Starting [facility] 02/01/20 at 1030, Until [facility] 02/01/20 at 1238, Routine enoxaparin 2019-04- No 30mg 30 mg, Univ ers (LOVENOX) 0-22 Subcutaneo ity of injection 14:00: 02:09 [place], DAILY, [place] 30 mg 00 :34 First dose Medical on [facility] 02/01/20 at 0900, Until Discontinu ed, Routine NaCl 0.9% 2019-04- No 2000mL at 125 Uni vers (NS) IV 0-19 10-19 mL/hr, IV ity of infusion 03:30: 03:17 Infusion, [place] 2,000 mL 00 :00 ONCE, 1 Medical dose, [facility] 01/31/20 at 2230, Routine thiamine 2019-04- No 100mg IV Univers (VITAMIN 0-01-31 Piggyback, ity of B1) 100 mg 22:30: 14:59 DAILY, 2 [place] in NaCl 00 :00 doses, Medical 0.9% (NS) First dose Bran ch piggyback on [place] 01/31/20 at 1730, Last dose on [facility] 02/01/20 at 0900, 50 mL lactated 2019-04- No 1000mL at 125 Univ ers ringers IV 0-18 10-19 mL/hr, ity of infusion 22:30: 02:29 1,000 mL, [place] 1,000 mL 00 :41 IV Medical Infusion, Branch CONTINUOUS , Starting [place] 01/31/20 at 1730, Until [place] 01/31/20 at 2129, Routine NaCl 0.9% 2019-04- No 30mL/kg at 999 Un you (NS) bolus 0-18 10-18 mL/hr, ity of infusion 15:45: 16:04 2,730 [place] 2,730 mL 00 :00 (30 mL/kg Medica l ?91 kg), Branch IV Infusion, ONCE, 1 dose, [place] 01/31/20 at 1045, [place] Sucralfate Sucralfate 2019-0 [...] ONCE, 1 Medical 50 mcg dose, Fri [place] 12/18/19 at 1845, Routine iohexol 2019- No 120mL 120 mL, Unive rs (OMNIPAQUE 12-17 Intravenou it y of 350 22:01: 22:02 s, ONCE, 1 [place] BULK-100 00 :00 dose, Fri Medica l mL) 12/18/19 at [place] injection 1715, 120 mL Routine proMETHazin 2019- No 25mg 25 mg, IV Univers e 12-17 Piggyback, ity of (PHENERGAN) 21:30: 20:40 ONCE, 1 [place] 25 mg in 00 :00 dose, Fri Medica l NaCl 0.9% 12/18/19 at Bran h (NS) 50 mL 1630, 50 piggyback mL proMETHazin 2019-0 Yes [id number] 25mg Insert 1 Univers e 12-17 Suppositor ity of (PHENERGAN) 00:00: y [place] 25 mg 00 rectum Medical suppository every 4 Branc h (four) hours as needed for Nausea and Vomiting (N/V). proMETHazin 2019-0 Yes [id number] 25mg Insert 1 Univers e 12-17 Suppositor ity of (PHENERGAN) 00:00: y [place] 25 mg 00 rectum Medical suppository every 4 Branc h (four) hours as needed for Nausea and Vomiting (N/V). proMETHazin 2020-0 Yes [id number] 25mg Insert 1 Univers e 9-04 Suppositor ity of (PHENERGAN) 00:00: y [place] 25 mg 00 rectum Medical suppository every 4 Branc h (four) hours as needed for Nausea and Vomiting (N/V). proMETHazin 2020-0 Yes [id number] 25mg Insert 1 Univers e 9-04 Suppositor ity of (PHENERGAN) 00:00: y [place] 25 mg 00 rectum Medical suppository every 4 Branc h (four) hours as needed for Nausea and Vomiting (N/V). proMETHazin 2020-0 Yes [id number] 25mg Insert 1 Univers e 9-04 Suppositor ity of (PHENERGAN) 00:00: y into [place] 25 mg 00 rectum Medical suppository every 4 Branc h (four) hours as needed for Nausea and Vomiting (N/V). proMETHazin 2020-0 Yes [id number] 25mg Insert 1 Univers e 9-04 Suppositor ity of (PHENERGAN) 00:00: y into [place] 25 mg 00 rectum Medical suppository every 4 Branc h (four) hours as needed for Nausea and Vomiting (N/V). proMETHazin 2020-0 Yes [id number] 25mg Insert 1 Univers e 9-04 Suppositor ity of (PHENERGAN) 00:00: y into [place] 25 mg 00 rectum Medical suppository every 4 Branc h (four) hours as needed for Nausea and Vomiting (N/V). proMETHazin 2020-0 Yes [id number] 25mg Insert 1 Univers e 9-04 Suppositor ity of (PHENERGAN) 00:00: y into [place] 25 mg 00 rectum Medical suppository every 4 Branc h (four) hours as needed for Nausea and Vomiting (N/V). proMETHazin 2020-0 Yes [id number] 25mg Insert 1 Univers e 9-04 Suppositor ity of (PHENERGAN) 00:00: y into [place] 25 mg 00 rectum Medical suppository every 4 Branc h (four) hours as needed for Nausea and Vomiting (N/V). proMETHazin 2020-0 Yes [id number] 25mg Insert 1 Univers e 9-04 Suppositor ity of (PHENERGAN) 00:00: y into [place] 25 mg 00 rectum Medical suppository every 4 Branc h (four) hours as needed for Nausea and Vomiting (N/V). proMETHazin 2020-0 Yes [id number] 25mg Insert 1 Univers e 9-04 Suppositor ity of (PHENERGAN) 00:00: y into [place] 25 mg 00 rectum Medical suppository every 4 Branc h (four) hours as needed for Nausea and Vomiting (N/V). proMETHazin 2020-0 Yes [id number] 25mg Insert 1 Univers e 9-04 Suppositor ity of (PHENERGAN) 00:00: y into [place] 25 mg 00 rectum Medical suppository every 4 Branc h (four) hours as needed for Nausea and Vomiting (N/V). proMETHazin 2020-0 Yes [id number] 25mg Insert 1 Univers e 9-04 Suppositor ity of (PHENERGAN) 00:00: y into [place] 25 mg 00 rectum Medical suppository every 4 Branc h (four) hours as needed for Nausea and Vomiting (N/V). proMETHazin 2020-0 Yes [id number] 25mg Insert 1 Univers e 9-04 Suppositor ity of (PHENERGAN) 00:00: y into [place] 25 mg 00 rectum Medical suppository every 4 Branc h (four) hours as needed for Nausea and Vomiting (N/V). proMETHazin 2020-0 Yes [id number] 25mg Insert 1 Univers e 9-04 Suppositor ity of (PHENERGAN) 00:00: y into [place] 25 mg 00 rectum Medical suppository every 4 Branc h (four) hours as needed for Nausea and Vomiting (N/V). proMETHazin 2020-0 Yes [id number] 25mg Insert 1 Univers e 9-04 Suppositor ity of (PHENERGAN) 00:00: y into [place] 25 mg 00 rectum Medical suppository every 4 Branc h (four) hours as needed for Nausea and Vomiting (N/V). proMETHazin 2020-0 Yes [id number] 25mg Insert 1 Univers e 9-04 Suppositor ity of (PHENERGAN) 00:00: y into [place] 25 mg 00 rectum Medical suppository every 4 Branc h (four) hours as needed for Nausea and Vomiting (N/V). proMETHazin 2020-0 Yes [id number] 25mg Insert 1 Univers e 9- Suppositor ity of (PHENERGAN) 00:00: y into [place] 25 mg 00 rectum Medical suppository every 4 Branc h (four) hours as needed for Nausea and Vomiting (N/V). proMETHazin 2020-0 Yes [id number] 25mg Insert 1 Univers e 9 Suppositor ity of (PHENERGAN) 00:00: y into [place] 25 mg 00 rectum Medical suppository every 4 Branc h (four) hours as needed for Nausea and Vomiting (N/V). proMETHazin 2019-0 2020- No [id number] 25mg Insert 1 Univers e 12-17-05 Suppositor ity of (PHENERGAN) 00:00: 00:00 y into [place] 25 mg 00 :00 rectum Medical suppository every 4 Branc h (four) hours as needed for Nausea and Vomiting (N/V). proMETHazin 2019-0 2020- No [id number] 25mg Insert 1 Univers e 12-17-05 Suppositor ity of (PHENERGAN) 00:00: 00:00 y into [place] 25 mg 00 :00 rectum Medical suppository every 4 Branc h (four) hours as needed for Nausea and Vomiting (N/V). Chlorhexidi Chlorhexidi 2019- 2020- No [place] 15 ML Common ne ne 10-05 swish and Spirit Gluconate Gluconate 00:00: 00:00 spit - [facility] 00 :00 [facility] cloNIDine 2019-0 2020- No .2mg 0.2 mg, [...] at Branch 2315, Routine Nitrofurant 2020-0 Yes [id number] 100mg Take 1 Univers oin&Nit. 5-08 capsule by ity o f Macrocryst 00:00: mouth 2 [place] (MACROBID) 00 (two) Medical 100 mg times Branch capsule daily. benzonatate 2020-0 Yes [id number] 200mg Take 1 [facility] 200 mg 5-08 capsule by ity of capsule 00:00: mouth 3 00 (three) Medical times Branch daily as needed for Cough. ondansetron 2020-0 Yes [id number] 4mg Take 1 [facility] (ZOFRAN) 4 5-08 tablet by ity of mg tablet 00:00: mouth [place] 00 every 8 Medical (eight) Branch hours as needed for Nausea and Vomiting (N/V). traMADol 2020-0 Yes [id number] 50mg Take 1 Uni vers (ULTRAM) 50 5-08 tablet by ity of mg tablet 00:00: mouth [place] 00 every 6 Medical (six) Branch hours as needed for Pain (scale 7-10). albuterol 2020-0 Yes [id number] 2{puff} Inhale 2 [facility] 90 5-08 Puffs ity of mcg/actuati 00:00: every 4 [place] inhaler 00 (four) Medical hours as Branch needed for Wheezing, Shortness of Breath, Bronchospa sm or Chest tightness. benzonatate 2020-0 Yes [id number] 200mg Take 1 [facility] 200 mg 5-08 capsule by ity of capsule 00:00: mouth 3 00 (three) Medical times Branch daily as needed for Cough. ondansetron 2020-0 Yes [id number] 4mg Take 1 [facility] (ZOFRAN) 4 5-08 tablet by ity of mg tablet 00:00: mouth [place] 00 every 8 Medical (eight) Branch hours as needed for Nausea and Vomiting (N/V). traMADol 2020-0 Yes [id number] 50mg Take 1 Uni vers (ULTRAM) 50 5-08 tablet by ity of mg tablet 00:00: mouth [place] 00 every 6 Medical (six) Branch hours as needed for Pain (scale 7-10). albuterol 2020-0 Yes [id number] 2{puff} Inhale 2 [facility] 90 5-08 Puffs ity of mcg/actuati 00:00: every 4 [place] inhaler 00 (four) Medical hours as Branch needed for Wheezing, Shortness of Breath, Bronchospa sm or Chest tightness. benzonatate 2020-0 Yes [id number] 200mg Take 1 [facility] 200 mg 5-08 capsule by ity of capsule 00:00: mouth 3 [place] 00 (three) Medical times Branch daily as needed for Cough. ondansetron 2020-0 Yes [id number] 4mg Take 1 [facility] (ZOFRAN) 4 5-08 tablet by ity of mg tablet 00:00: mouth [place] 00 every 8 Medical (eight) Branch hours as needed for Nausea and Vomiting (N/V). traMADol 2020-0 Yes [id number] 50mg Take 1 Uni vers (ULTRAM) 50 5-08 tablet by ity of mg tablet 00:00: mouth [place] 00 every 6 Medical (six) Branch hours as needed for Pain (scale 7-10). albuterol 2020-0 Yes [id number] 2{puff} Inhale 2 [facility] 90 5-08 Puffs ity of mcg/actuati 00:00: every 4 [place] inhaler 00 (four) Medical hours as Branch needed for Wheezing, Shortness of Breath, Bronchospa sm or Chest tightness. benzonatate 2020-0 Yes [id number] 200mg Take 1 [facility] 200 mg 5-08 capsule by ity of capsule 00:00: mouth 3 [place] 00 (three) Medical times Branch daily as needed for Cough. ondansetron 2020-0 Yes [id number] 4mg Take 1 [facility] (ZOFRAN) 4 5-08 tablet by ity of mg tablet 00:00: mouth [place] 00 every 8 Medical (eight) Branch hours as needed for Nausea and Vomiting (N/V). traMADol 2020-0 Yes [id number] 50mg Take 1 Uni vers (ULTRAM) 50 5-08 tablet by ity of mg tablet 00:00: mouth [place] 00 every 6 Medical (six) Branch hours as needed for Pain (scale 7-10). albuterol 2020-0 Yes [id number] 2{puff} Inhale 2 [facility] 90 5-08 Puffs ity of mcg/actuati 00:00: every 4 [place] inhaler 00 (four) Medical hours as Branch needed for Wheezing, Shortness of Breath, Bronchospa sm or Chest tightness. benzonatate 2020-0 Yes [id number] 200mg Take 1 [facility] 200 mg 5-08 capsule by ity of capsule 00:00: mouth 3 [place] 00 (three) Medical times Branch daily as needed for Cough. ondansetron 2020-0 Yes [id number] 4mg Take 1 [facility] (ZOFRAN) 4 5-08 tablet by ity of mg tablet 00:00: mouth [place] 00 every 8 Medical (eight) Branch hours as needed for Nausea and Vomiting (N/V). traMADol 2020-0 Yes [id number] 50mg Take 1 Uni vers (ULTRAM) 50 5-08 tablet by ity of mg tablet 00:00: mouth [place] 00 every 6 Medical (six) Branch hours as needed for Pain (scale 7-10). albuterol 2020-0 Yes [id number] 2{puff} Inhale 2 [facility] 90 5-08 Puffs ity of mcg/actuati 00:00: every 4 [place] inhaler 00 (four) Medical hours as Branch needed for Wheezing, Shortness of Breath, Bronchospa sm or Chest tightness. benzonatate 2020-0 Yes [id number] 200mg Take 1 [facility] 200 mg 5-08 capsule by ity of capsule 00:00: mouth 3 [place] 00 (three) Medical times Branch daily as needed for Cough. ondansetron 2020-0 Yes [id number] 4mg Take 1 [facility] (ZOFRAN) 4 5-08 tablet by ity of mg tablet 00:00: mouth [place] 00 every 8 Medical (eight) Branch hours as needed for Nausea and Vomiting (N/V). traMADol 2020-0 Yes [id number] 50mg Take 1 Uni vers (ULTRAM) 50 5-08 tablet by ity of mg tablet 00:00: mouth [place] 00 every 6 Medical (six) Branch hours as needed for Pain (scale 7-10). albuterol 2020-0 Yes [id number] 2{puff} Inhale 2 [facility] 90 5-08 Puffs ity of mcg/actuati 00:00: every 4 [place] inhaler 00 (four) Medical hours as Branch needed for Wheezing, Shortness of Breath, Bronchospa sm or Chest tightness. benzonatate 2020-0 Yes [id number] 200mg Take 1 [facility] 200 mg 5-08 capsule by ity of capsule 00:00: mouth 3 [place] 00 (three) Medical times Branch daily as needed for Cough. ondansetron 2020-0 Yes [id number] 4mg Take 1 [facility] (ZOFRAN) 4 5-08 tablet by ity of mg tablet 00:00: mouth [place] 00 every 8 Medical (eight) Branch hours as needed for Nausea and Vomiting (N/V). traMADol 2020-0 Yes [id number] 50mg Take 1 Uni vers (ULTRAM) 50 5-08 tablet by ity of mg tablet 00:00: mouth [place] 00 every 6 Medical (six) Branch hours as needed for Pain (scale 7-10). albuterol 2020-0 Yes [id number] 2{puff} Inhale 2 [facility] 90 5-08 Puffs ity of mcg/actuati 00:00: every 4 [place] inhaler 00 (four) Medical hours as Branch needed for Wheezing, Shortness of Breath, Bronchospa sm or Chest tightness. benzonatate 2020-0 Yes [id number] 200mg Take 1 [facility] 200 mg 5-08 capsule by ity of capsule 00:00: mouth 3 [place] 00 (three) Medical times Branch daily as needed for Cough. ondansetron 2020-0 Yes [id number] 4mg Take 1 [facility] (ZOFRAN) 4 5-08 tablet by ity of mg tablet 00:00: mouth [place] 00 every 8 Medical (eight) Branch hours as needed for Nausea and Vomiting (N/V). traMADol 2020-0 Yes [id number] 50mg Take 1 Uni vers (ULTRAM) 50 5-08 tablet by ity of mg tablet 00:00: mouth [place] 00 every 6 Medical (six) Branch hours as needed for Pain (scale 7-10). albuterol 2020-0 Yes [id number] 2{puff} Inhale 2 [facility] 90 5-08 Puffs ity of mcg/actuati 00:00: every 4 [place] inhaler 00 (four) Medical hours as Branch needed for Wheezing, Shortness of Breath, Bronchospa sm or Chest tightness. benzonatate 2020-0 Yes [id number] 200mg Take 1 [facility] 200 mg 5-08 capsule by ity of capsule 00:00: mouth 3 [place] 00 (three) Medical times Branch daily as needed for Cough. ondansetron 2020-0 Yes [id number] 4mg Take 1 Univers (ZOFRAN) 4 5-08 tablet by ity of mg tablet 00:00: mouth [place] 00 every 8 Medical (eight) Branch hours as needed for Nausea and Vomiting (N/V). traMADol 2020-0 Yes [id number] 50mg Take 1 Uni vers (ULTRAM) 50 5-08 tablet by ity of mg tablet 00:00: mouth [place] 00 every 6 Medical (six) Branch hours as needed for Pain (scale 7-10). albuterol 2020-0 Yes [id number] 2{puff} Inhale 2 [facility] 90 5-08 Puffs ity of mcg/actuati 00:00: every 4 [place] inhaler 00 (four) Medical hours as Branch needed for Wheezing, Shortness of Breath, Bronchospa sm or Chest tightness. benzonatate 2020-0 Yes [id number] 200mg Take 1 [facility] 200 mg 5-08 capsule by ity of capsule 00:00: mouth 3 [place] 00 (three) Medical times Branch daily as needed for Cough. ondansetron 2020-0 Yes [id number] 4mg Take 1 Univers (ZOFRAN) 4 5-08 tablet by ity of mg tablet 00:00: mouth [place] 00 every 8 Medical (eight) Branch hours as needed for Nausea and Vomiting (N/V). traMADol 2020-0 Yes [id number] 50mg Take 1 Uni vers (ULTRAM) 50 5-08 tablet by ity of mg tablet 00:00: mouth [place] 00 every 6 Medical (six) Branch hours as needed for Pain (scale 7-10). albuterol 2020-0 Yes [id number] 2{puff} Inhale 2 [facility] 90 5-08 Puffs ity of mcg/actuati 00:00: every 4 [place] inhaler 00 (four) Medical hours as Branch needed for Wheezing, Shortness of Breath, Bronchospa sm or Chest tightness. benzonatate 2020-0 Yes [id number] 200mg Take 1 [facility] 200 mg 5-08 capsule by ity of capsule 00:00: mouth 3 [place] 00 (three) Medical times Branch daily as needed for Cough. ondansetron 2020-0 Yes [id number] 4mg Take 1 Univers (ZOFRAN) 4 5-08 tablet by ity of mg tablet 00:00: mouth [place] 00 every 8 Medical (eight) Branch hours as needed for Nausea and Vomiting (N/V). traMADol 2020-0 Yes [id number] 50mg Take 1 Uni vers (ULTRAM) 50 5-08 tablet by ity of mg tablet 00:00: mouth [place] 00 every 6 Medical (six) Branch hours as needed for Pain (scale 7-10). albuterol 2020-0 Yes [id number] 2{puff} Inhale 2 [facility] 90 5-08 Puffs ity of mcg/actuati 00:00: every 4 [place] inhaler 00 (four) Medical hours as Branch needed for Wheezing, Shortness of Breath, Bronchospa sm or Chest tightness. benzonatate 2020-0 Yes [id number] 200mg Take 1 [facility] 200 mg 5-08 capsule by ity of capsule 00:00: mouth 3 [place] 00 (three) Medical times Branch daily as needed for Cough. ondansetron 2020-0 Yes [id number] 4mg Take 1 Univers (ZOFRAN) 4 5-08 tablet by ity of mg tablet 00:00: mouth [place] 00 every 8 Medical (eight) Branch hours as needed for Nausea and Vomiting (N/V). traMADol 2020-0 Yes [id number] 50mg Take 1 Uni vers (ULTRAM) 50 5-08 tablet by ity of mg tablet 00:00: mouth [place] 00 every 6 Medical (six) Branch hours as needed for Pain (scale 7-10). albuterol 2020-0 Yes [id number] 2{puff} Inhale 2 [facility] 90 5-08 Puffs ity of mcg/actuati 00:00: every 4 [place] inhaler 00 (four) Medical hours as Branch needed for Wheezing, Shortness of Breath, Bronchospa sm or Chest tightness. benzonatate 2020-0 Yes [id number] 200mg Take 1 [facility] 200 mg 5-08 capsule by ity of capsule 00:00: mouth 3 00 (three) Medical times Branch daily as needed for Cough. ondansetron 2020-0 Yes [id number] 4mg Take 1 Univers (ZOFRAN) 4 5-08 tablet by ity of mg tablet 00:00: mouth [place] 00 every 8 Medical (eight) Branch hours as needed for Nausea and Vomiting (N/V). traMADol 2020-0 Yes [id number] 50mg Take 1 Uni vers (ULTRAM) 50 5-08 tablet by ity of mg tablet 00:00: mouth [place] 00 every 6 Medical (six) Branch hours as needed for Pain (scale 7-10). albuterol 2020-0 Yes [id number] 2{puff} Inhale 2 [facility] 90 5-08 Puffs ity of mcg/actuati 00:00: every 4 [place] on inhaler 00 (four) Medical hours as Branch needed for Wheezing, Shortness of Breath, Bronchospa sm or Chest tightness. benzonatate 2020-0 Yes [id number] 200mg Take 1 [facility] 200 mg 5-08 capsule by ity of capsule 00:00: mouth 3 (three) Medical times Branch daily as needed for Cough. ondansetron 2020-0 Yes [id number] 4mg Take 1 [facility] (ZOFRAN) 4 5-08 tablet by ity of mg tablet 00:00: mouth [place] 00 every 8 Medical (eight) Branch hours as needed for Nausea and Vomiting (N/V). traMADol 2020-0 Yes [id number] 50mg Take 1 [facility] vers (ULTRAM) 50 5-08 tablet by ity of mg tablet 00:00: mouth [place] 00 every 6 Medical (six) Branch hours as needed for Pain (scale 7-10). albuterol 2020-0 Yes [id number] 2{puff} Inhale 2 [facility] 90 5-08 Puffs ity of mcg/actuati 00:00: every 4 [place] on inhaler 00 (four) Medical hours as Branch needed for Wheezing, Shortness of Breath, Bronchospa sm or Chest tightness. benzonatate 2020-0 Yes [id number] 200mg Take 1 [facility] 200 mg 5-08 capsule by ity of capsule 00:00: mouth 3 (three) Medical times Branch daily as needed for Cough. ondansetron 2020-0 Yes [id number] 4mg Take 1 [facility] (ZOFRAN) 4 5-08 tablet by ity of mg tablet 00:00: mouth [place] 00 every 8 Medical (eight) Branch hours as needed for Nausea and Vomiting (N/V). traMADol 2020-0 Yes [id number] 50mg Take 1 [facility] vers (ULTRAM) 50 5-08 tablet by ity of mg tablet 00:00: mouth [place] 00 every 6 Medical (six) Branch hours as needed for Pain (scale 7-10). albuterol 2020-0 Yes [id number] 2{puff} Inhale 2 [facility] 90 5-08 Puffs ity of mcg/actuati 00:00: every 4 [place] on inhaler 00 (four) Medical hours as Branch needed for Wheezing, Shortness of Breath, Bronchospa sm or Chest tightness. benzonatate 2020-0 Yes [id number] 200mg Take 1 [facility] 200 mg 5-08 capsule by ity of capsule 00:00: mouth 3 [place] 00 (three) Medical times Branch daily as needed for Cough. ondansetron 2020-0 Yes [id number] 4mg Take 1 [facility] (ZOFRAN) 4 5-08 tablet by ity of mg tablet 00:00: mouth [place] 00 every 8 Medical (eight) Branch hours as needed for Nausea and Vomiting (N/V). traMADol 2020-0 Yes [id number] 50mg Take 1 [facility] (ULTRAM) 50 5-08 tablet by ity of mg tablet 00:00: mouth [place] 00 every 6 Medical (six) Branch hours as needed for Pain (scale 7-10). albuterol 2020-0 Yes [id number] 2{puff} Inhale 2 [facility] 90 5-08 Puffs ity of mcg/actuati 00:00: every 4 [place] on inhaler 00 (four) Medical hours as Branch needed for Wheezing, Shortness of Breath, Bronchospa sm or Chest tightness. benzonatate 2020-0 Yes [id number] 200mg Take 1 [facility] 200 mg 5-08 capsule by ity of capsule 00:00: mouth 3 [place] 00 (three) Medical times Branch daily as needed for Cough. ondansetron 2020-0 Yes [id number] 4mg Take 1 [facility] (ZOFRAN) 4 5-08 tablet by ity of mg tablet 00:00: mouth [place] 00 every 8 Medical (eight) Branch hours as needed for Nausea and Vomiting (N/V). traMADol 2020-0 Yes [id number] 50mg Take 1 [facility] vers (ULTRAM) 50 5-08 tablet by ity of mg tablet 00:00: mouth [place] 00 every 6 Medical (six) Branch hours as needed for Pain (scale 7-10). albuterol 2020-0 Yes [id number] 2{puff} Inhale 2 [facility] 90 5-08 Puffs ity of mcg/actuati 00:00: every 4 [place] on inhaler 00 (four) Medical hours as Branch needed for Wheezing, Shortness of Breath, Bronchospa sm or Chest tightness. benzonatate 2020-0 Yes [id number] 200mg Take 1 [facility] 200 mg 5-08 capsule by ity of capsule 00:00: mouth 3 [place] 00 (three) Medical times Branch daily as needed for Cough. ondansetron 2020-0 Yes [id number] 4mg Take 1 [facility] (ZOFRAN) 4 5-08 tablet by ity of mg tablet 00:00: mouth [place] 00 every 8 Medical (eight) Branch hours as needed for Nausea and Vomiting (N/V). traMADol 2020-0 Yes [id number] 50mg Take 1 [facility] (ULTRAM) 50 5-08 tablet by ity of mg tablet 00:00: mouth [place] 00 every 6 Medical (six) Branch hours as needed for Pain (scale 7-10). albuterol 2020-0 Yes [id number] 2{puff} Inhale 2 [facility] 90 5-08 Puffs ity of mcg/actuati 00:00: every 4 [place] on inhaler 00 (four) Medical hours as Branch needed for Wheezing, Shortness of Breath, Bronchospa sm or Chest tightness. benzonatate 2020-0 Yes [id number] 200mg Take 1 [facility] 200 mg 5-08 capsule by ity of capsule 00:00: mouth 3 [place] 00 (three) Medical times Branch daily as needed for Cough. ondansetron 2020-0 Yes [id number] 4mg Take 1 [facility] (ZOFRAN) 4 5-08 tablet by ity of mg tablet 00:00: mouth [place] 00 every 8 Medical (eight) Branch hours as needed for Nausea and Vomiting (N/V). traMADol 2020-0 Yes [id number] 50mg Take 1 [facility] (ULTRAM) 50 5-08 tablet by ity of mg tablet 00:00: mouth [place] 00 every 6 Medical (six) Branch hours as needed for Pain (scale 7-10). albuterol 2020-0 Yes [id number] 2{puff} Inhale 2 [facility] 90 5-08 Puffs ity of mcg/actuati 00:00: every 4 [place] on inhaler 00 (four) Medical hours as Branch needed for Wheezing, Shortness of Breath, Bronchospa sm or Chest tightness. ondansetron 2020-0 Yes [id number] 4mg Take 1 [facility] (ZOFRAN) 4 5-08 tablet by ity of mg tablet 00:00: mouth [place] 00 every 8 Medical (eight) Branch hours as needed for Nausea and Vomiting (N/V). ondansetron 2020-0 Yes [id number] 4mg Take 1 [facility] (ZOFRAN) 4 5-08 tablet by ity of mg tablet 00:00: mouth [place] 00 every 8 Medical (eight) Branch hours as needed for Nausea and Vomiting (N/V). ondansetron 2020-0 Yes [id number] 4mg Take 1 [facility] (ZOFRAN) 4 5-08 tablet by ity of mg tablet 00:00: mouth [place] 00 every 8 Medical (eight) Branch hours as needed for Nausea and Vomiting (N/V). ondansetron 2020-0 Yes [id number] 4mg Take 1 [facility] (ZOFRAN) 4 5-08 tablet by ity of mg tablet 00:00: mouth [place] 00 every 8 Medical (eight) Branch hours as needed for Nausea and Vomiting (N/V). Nitrofurant 2020-0 Yes [id number] 100mg Take 1 [facility] oin&Nit. 5-08 capsule by ity o f Macrocryst 00:00: mouth [place] (MACROBID) 00 (two) Medical 100 mg times Branch capsule daily. benzonatate 2020-0 Yes [id number] 200mg Take 1 [facility] 200 mg 5-08 capsule by ity of capsule 00:00: mouth 3 [place] 00 (three) Medical times Branch daily as needed for Cough. ondansetron 2020-0 Yes [id number] 4mg Take 1 [facility] (ZOFRAN) 4 5-08 tablet by ity of mg tablet 00:00: mouth [place] 00 every 8 Medical (eight) Branch hours as needed for Nausea and Vomiting (N/V). traMADol 2020-0 Yes [id number] 50mg Take 1 [facility] vers (ULTRAM) 50 5-08 tablet by ity of mg tablet 00:00: mouth [place] 00 every 6 Medical (six) Branch hours as needed for Pain (scale 7-10). albuterol Yes [id number] 2{puff} Inhale 2 [facility] 90 5-08 Puffs ity of mcg/actuati 00:00: every 4 [place] on inhaler 00 (four) Medical hours as Branch needed for Wheezing, Shortness of Breath, Bronchospa sm or Chest tightness. ondansetron 2020- No [id number] 4mg Take 1 [facility] (ZOFRAN) 4 5-08 06-30 tablet by ity of mg tablet 00:00: 00:00 mouth [place] 00 :00 every 8 Medical (eight) Branch hours as needed for Nausea and Vomiting (N/V). benzonatate 2020- No [id number] 200mg Take 1 [facility] 200 mg 5-08 04-05 capsule by ity of capsule 00:00: 00:00 mouth 3 [place] 00 :00 (three) Medical times Branch daily as needed for Cough. traMADol 2020- No [id number] 50mg Take 1 [facility] you (ULTRAM) 50 5-08 04-05 tablet by it y of mg tablet 00:00: 00:00 mouth [place] 00 :00 every 6 Medical (six) Branch hours as needed for Pain (scale 7-10). albuterol 2020- No [id number] 2{puff} Inhale 2 [facility] 90 5-08 04-05 Puffs ity of mcg/actuati 00:00: 00:00 every 4 [place] on inhaler 00 :00 (four) Medical hours as Branch needed for Wheezing, Shortness of Breath, Bronchospa sm or Chest tightness. benzonatate 2020- No [id number] 200mg Take 1 [facility] 200 mg 5-08 04-05 capsule by ity of capsule 00:00: 00:00 mouth 3 [place] 00 :00 (three) Medical times Branch daily as needed for Cough. traMADol 2020- No [id number] 50mg Take 1 Un you (ULTRAM) 50 5-08 04-05 tablet by it y of mg tablet 00:00: 00:00 mouth [place] 00 :00 every 6 Medical (six) Branch hours as needed for Pain (scale 7-10). albuterol 2020- No [id number] 2{puff} Inhale 2 [facility] 90 08-20 04-05 Puffs ity of mcg/actuati 00:00: 00:00 every 4 [place] on inhaler 00 :00 (four) Medical hours as Branch needed for Wheezing, Shortness of Breath, Bronchospa sm or Chest tightness. Nitrofurant 2019- No [id number] 100mg Take 1 [facility] oin&Nit. 08-20 capsule by ity of Macrocryst 00:00: 00:00 mouth 2 [place] (MACROBID) 00 :00 (two) Medical 100 mg times Branch capsule daily. HYDROcodone 2019- No 1{tbl} 1 tablet, [facility] -acetaminop 06-25 Oral, ONCE i ty of hen (NORCO) 01:15: 00:22 NOW, 1 [place] 10-325 mg 00 :00 dose, [facility] Medic al tablet 1 06/25/19 at [facility] h tablet 2014, [place] dicyclomine Yes 20mg 20 mg, Univ ers (BENTYL) 06-25 Intramuscu ity o f injection 01:00: lar, QID, [place] 20 mg 00 First dose Medical on [facility] 06/25/19 at 2000, Until Discontinu ed, [place] hydralAZINE 2019- No 20mg 20 mg, Uni vers (APRESOLINE 06-25 Intravenou i ty of ) injection 00:45: 00:10 s, ONCE [place] 20 mg 00 :00 NOW, 1 Medical dose, [facility] 06/25/19 at 1945, [place] metoclopram 2019- No 10mg 10 mg, Uni vers selena HCl 06-24 Slow IV ity of (REGLAN) 23:45: 22:48 Push, [place] injection 00 :00 ONCE, 1 Medical 10 mg dose, [facility] 06/25/19 at 1845, [place] ketorolac 2019- No 30mg 30 mg, Unive rs (TORADOL) 06-24 Slow IV ity of injection 23:45: 22:49 Push, [place] 30 mg 00 :00 ONCE, 1 Medical dose, [facility] 06/25/19 at 1845, [place]
Fa culty member approving Restricted medication : KIRSTIN RON NaCl 0.9% 2020-0 2020- No 1000mL at 999 Uni vers (NS) bolus 06-24 03-13 mL/hr, ity of infusion 22:45: 01:01 1,000 mL, [place] as 1,000 mL 00 :00 IV Medical Infusion, [place] ONCE, 1 dose, [facility] 06/25/19 at 1745, [place] maalox:diph 2020-0 2020- No 15mL 15 mL, Uni vers enhydrAMINE 06-2412 Oral, ity of :lidocaine 22:45: 22:52 ONCE, 1 [place] 2 % viscous 00 :00 dose, [place] Med ical 1:1:1 06/25/19 at [place] (FIRST-MO 174, [place] [facility] BLM) oral suspension 15 mL morpHINE 2019-0 2020- No 4mg 4 mg, Slow Un you injection 4 06-19 IV Push, ity of mg 01:00: 00:10 ONCE, 1 [place] 00 :00 dose, Fri Medical 06/19/19 at [place] 1900, STAT maalox:diph 2020-0 2020- No 15mL 15 mL, Uni vers enhydrAMINE 06-19 Oral, ity of :lidocaine 01:00: 00:10 ONCE, 1 [place] 2 % viscous 00 :00 dose, Fri Med ical 1:1:1 06/19/19 at [place] (1899, [facility]) Routine oral suspension 15 mL famotidine 2019-0 2020- No 20mg 20 mg, [facility] ers (PEPCID 06-18 Slow IV ity of (PF)) 22:30: 21:40 Push, [place] injection 00 :00 ONCE, 1 Medical 20 mg dose, [facility] 06/19/19 at 1630, [place] proMETHazin 2019-0 2020- No 12.5mg 12.5 mg, Univers e 06-18 IV ity of (PHENERGAN) 22:30: 21:40 Piggyback, [place] 12.5 mg in 00 :00 ONCE, 1 Medica l NaCl 0.9% dose, Fri [facility] h (NS) 50 mL 06/19/19 at piggyback [...] 06/19/19 at 1530, [place] ondansetron 2020-0 Yes [id number] 8mg Take 2 [facility] 4 mg 3-06 tablets by ity of disintegrat 00:00: mouth [place] ing tablet 00 every 8 Medica l (eight) Branch hours as needed for Nausea and Vomiting (N/V). ondansetron 2020-0 Yes [id number] 8mg Take 2 [facility] 4 mg 3-06 tablets by ity of disintegrat 00:00: mouth [place] ing tablet 00 every 8 Medica l (eight) Branch hours as needed for Nausea and Vomiting (N/V). ondansetron 2020-0 Yes [id number] 8mg Take 2 [facility] 4 mg 3-06 tablets by ity of disintegrat 00:00: mouth [place] ing tablet 00 every 8 Medica l (eight) Branch hours as needed for Nausea and Vomiting (N/V). ondansetron 2020-0 Yes [id number] 8mg Take 2 [facility] 4 mg 3-06 tablets by ity of disintegrat 00:00: mouth [place] ing tablet 00 every 8 Medica l (eight) Branch hours as needed for Nausea and Vomiting (N/V). ondansetron 2020-0 2020- No [id number] 8mg Take 2 [facility] 4 mg 3-06 10-26 tablets by ity of disintegrat 00:00: 00:00 mouth [place] ing tablet 00 :00 every 8 Medica l (eight) Branch hours as needed for Nausea and Vomiting (N/V). famotidine 2020-0 2020- No [id number] 40mg Take 1 [facility] (PEPCID) 40 3-06 04-06 tablet by it y of mg tablet 00:00: 04:59 mouth [place] 00 :00 daily for Medical 30 days. Branch famotidine 2020-0 2020- No [id number] 40mg Take 1 [facility] (PEPCID) 40 3-06 [...] No 120mL 120 mL, Unive rs (OMNIPAQUE 2-08 14-05 Intravenou it y of 350 02:15: 02:15 s, ONCE, 1 [place] BULK-150 00 :00 dose, Tue Medica l mL) 05/19/19 at Branch injection 2014, 120 mL Routine ondansetron 2019-0 2019- No 4mg 4 mg, Slow [facility] (ZOFRAN 2-05 IV Push, ity of (PF)) 02:15: 01:25 ONCE, 1 [place] injection 4 00 :00 dose, Tue Med ical mg 05/19/19 at Branch 2015, Routine morpHINE 2019-0 2020- No 4mg 4 mg, Slow Un you injection 4 05-20-05 IV Push, ity of mg 02:15: 01:25 ONCE, 1 00 :00 dose, Tue Medical 05/19/19 at Branch 2015, STAT traMADol 2020-0 Yes [id number] 100mg Take 1 Un you 100 mg 24 2-04 tablet by ity o f hr tablet 00:00: mouth [place] 00 daily. Medical Branch ondansetron 2020-0 Yes [id number] 4mg Take 1 [facility] 4 mg 2-04 tablet by ity of disintegrat 00:00: mouth [place] ing tablet 00 every 8 Medica l (eight) Branch hours as needed for Nausea and Vomiting (N/V). ondansetron 2020-0 Yes [id number] 4mg Take 1 [facility] 4 mg 2-04 tablet by ity of disintegrat 00:00: mouth [place] ing tablet 00 every 8 Medica l (eight) Branch hours as needed for Nausea and Vomiting (N/V). ondansetron 2020-0 Yes [id number] 4mg Take 1 [facility] 4 mg 2-04 tablet by ity of disintegrat 00:00: mouth [place] ing tablet 00 every 8 Medica l (eight) Branch hours as needed for Nausea and Vomiting (N/V). ondansetron 2020-0 Yes [id number] 4mg Take 1 [facility] 4 mg 2-04 tablet by ity of disintegrat 00:00: mouth [place] ing tablet 00 every 8 Medica l (eight) Branch hours as needed for Nausea and Vomiting (N/V). ondansetron 2020-0 Yes [id number] 4mg Take 1 [facility] 4 mg 2-04 tablet by ity of disintegrat 00:00: mouth [place] ing tablet 00 every 8 Medica l (eight) Branch hours as needed for Nausea and Vomiting (N/V). ondansetron 2020-0 Yes [id number] 4mg Take 1 [facility] 4 mg 2-04 tablet by ity of disintegrat 00:00: mouth [place] ing tablet 00 every 8 Medica l (eight) Branch hours as needed for Nausea and Vomiting (N/V). ondansetron 2020-0 Yes [id number] 4mg Take 1 [facility] 4 mg 2-04 tablet by ity of disintegrat 00:00: mouth [place] ing tablet 00 every 8 Medica l (eight) Branch hours as needed for Nausea and Vomiting (N/V). ondansetron 2020-0 Yes [id number] 4mg Take 1 [facility] 4 mg 2-04 tablet by ity of disintegrat 00:00: mouth [place] ing tablet 00 every 8 Medica l (eight) Branch hours as needed for Nausea and Vomiting (N/V). ondansetron 2020-0 Yes [id number] 4mg Take 1 [facility] 4 mg 2-04 tablet by ity of disintegrat 00:00: mouth [place] ing tablet 00 every 8 Medica l (eight) Branch hours as needed for Nausea and Vomiting (N/V). ondansetron 2020-0 Yes [id number] 4mg Take 1 [facility] 4 mg 2-04 tablet by ity of disintegrat 00:00: mouth [place] ing tablet 00 every 8 Medica l (eight) Branch hours as needed for Nausea and Vomiting (N/V). ondansetron 2020-0 Yes [id number] 4mg Take 1 [facility] 4 mg 2-04 tablet by ity of disintegrat 00:00: mouth [place] ing tablet 00 every 8 Medica l (eight) Branch hours as needed for Nausea and Vomiting (N/V). ondansetron 2020-0 Yes [id number] 4mg Take 1 [facility] 4 mg 2-04 tablet by ity of disintegrat 00:00: mouth [place] ing tablet 00 every 8 Medica l (eight) Branch hours as needed for Nausea and Vomiting (N/V). ondansetron 2020-0 Yes [id number] 4mg Take 1 [facility] 4 mg 2-04 tablet by ity of disintegrat 00:00: mouth [place] ing tablet 00 every 8 Medica l (eight) Branch hours as needed for Nausea and Vomiting (N/V). ondansetron 2020-0 Yes [id number] 4mg Take 1 [facility] 4 mg 2-04 tablet by ity of disintegrat 00:00: mouth [place] ing tablet 00 every 8 Medica l (eight) Branch hours as needed for Nausea and Vomiting (N/V). ondansetron 2020-0 Yes [id number] 4mg Take 1 [facility] 4 mg 2-04 tablet by ity of disintegrat 00:00: mouth [place] ing tablet 00 every 8 Medica l (eight) Branch hours as needed for Nausea and Vomiting (N/V). ondansetron 2020-0 Yes [id number] 4mg Take 1 [facility] 4 mg 2-04 tablet by ity of disintegrat 00:00: mouth [place] ing tablet 00 every 8 Medica l (eight) Branch hours as needed for Nausea and Vomiting (N/V). ondansetron 2020-0 Yes [id number] 4mg Take 1 [facility] 4 mg 2-04 tablet by ity of disintegrat 00:00: mouth [place] ing tablet 00 every 8 Medica l (eight) Branch hours as needed for Nausea and Vomiting (N/V). ondansetron 2020-0 Yes [id number] 4mg Take 1 [facility] 4 mg 2-04 tablet by ity of disintegrat 00:00: mouth [place] ing tablet 00 every 8 Medica l (eight) Branch hours as needed for Nausea and Vomiting (N/V). ondansetron 2020-0 Yes [id number] 4mg Take 1 [facility] 4 mg 2-04 tablet by ity of disintegrat 00:00: mouth [place] ing tablet 00 every 8 Medica l (eight) Branch hours as needed for Nausea and Vomiting (N/V). traMADol 2020-0 Yes [id number] 100mg Take 1 Un you 100 mg 24 2-04 tablet by ity o f hr tablet 00:00: mouth [place] 00 daily. Medical Branch ondansetron 2020-0 Yes [id number] 4mg Take 1 [facility] 4 mg 2-04 tablet by ity of disintegrat 00:00: mouth [place] ing tablet 00 every 8 Medica l (eight) Branch hours as needed for Nausea and Vomiting (N/V). traMADol 2020-0 Yes [id number] 100mg Take 1 Un you 100 mg 24 2-04 tablet by ity o f hr tablet 00:00: mouth [place] 00 daily. Medical Branch ondansetron 2020-0 Yes [id number] 4mg Take 1 [facility] 4 mg 2-04 tablet by ity of disintegrat 00:00: mouth [place] ing tablet 00 every 8 Medica l (eight) Branch hours as needed for Nausea and Vomiting (N/V). traMADol 2020-0 Yes [id number] 100mg Take 1 Un you 100 mg 24 2-04 tablet by ity o f hr tablet 00:00: mouth [place] 00 daily. Medical Branch ondansetron 2020-0 Yes [id number] 4mg Take 1 [facility] 4 mg 2-04 tablet by ity of disintegrat 00:00: mouth [place] ing tablet 00 every 8 Medica l (eight) Branch hours as needed for Nausea and Vomiting (N/V). traMADol 2020-0 Yes [id number] 100mg Take 1 Un you 100 mg 24 2-04 tablet by ity o f hr tablet 00:00: mouth [place] 00 daily. Medical Branch ondansetron 2020-0 Yes [id number] 4mg Take 1 [facility] 4 mg 2-04 tablet by ity of disintegrat 00:00: mouth [place] ing tablet 00 every 8 Medica l (eight) Branch hours as needed for Nausea and Vomiting (N/V). traMADol 2020-0 Yes [id number] 100mg Take 1 Un you 100 mg 24 2-04 tablet by ity o f hr tablet 00:00: mouth [place] 00 daily. Medical Branch ondansetron 2020-0 Yes [id number] 4mg Take 1 [facility] 4 mg 2-04 tablet by ity of disintegrat 00:00: mouth [place] ing tablet 00 every 8 Medica l (eight) Branch hours as needed for Nausea and Vomiting (N/V). ondansetron 2020- No [id number] 4mg Take 1 [facility] 4 mg 2-04 04-05 tablet by ity of disintegrat 00:00: 00:00 mouth [place] ing tablet 00 :00 every 8 Medica l (eight) Branch hours as needed for Nausea and Vomiting (N/V). ondansetron No [id number] 4mg Take 1 [facility] 4 mg 2-04 04-05 tablet by ity of disintegrat 00:00: 00:00 mouth [place] ing tablet 00 :00 every 8 Medica l (eight) Branch hours as needed for Nausea and Vomiting (N/V). traMADol No [id number] 100mg Take 1 U nivers 100 mg [...] 44 daily. Medical Branch ondansetron 2018-04 Yes [id number] 4mg Take 1 [facility] 4 mg tablet 0-26 tablet by ity of 00:00: mouth [place] 00 every 8 Medical (eight) Branch hours as needed for Nausea and Vomiting (N/V). ondansetron 2018-04 Yes [id number] 4mg Take 1 [facility] 4 mg tablet 0-26 tablet by ity of 00:00: mouth [place] 00 every 8 Medical (eight) Branch hours as needed for Nausea and Vomiting (N/V). ondansetron 2018-04 Yes [id number] 4mg Take 1 [facility] 4 mg tablet 0-26 tablet by ity of 00:00: mouth [place] 00 every 8 Medical (eight) Branch hours as needed for Nausea and Vomiting (N/V). ondansetron 2018-04 Yes [id number] 4mg Take 1 [facility] 4 mg tablet 0-26 tablet by ity of 00:00: mouth [place] 00 every 8 Medical (eight) Branch hours as needed for Nausea and Vomiting (N/V). ondansetron 2018-04 Yes [id number] 4mg Take 1 [facility] 4 mg tablet 0-26 tablet by ity of 00:00: mouth [place] 00 every 8 Medical (eight) Branch hours as needed for Nausea and Vomiting (N/V). ondansetron 2018-04 Yes [id number] 4mg Take 1 [facility] 4 mg tablet 0-26 tablet by ity of 00:00: mouth [place] 00 every 8 Medical (eight) Branch hours as needed for Nausea and Vomiting (N/V). ondansetron 2018-04 2020- No [id number] 4mg Take 1 [facility] 4 mg tablet 0-26 10-26 tablet by it y of 00:00: 00:00 mouth [place] 00 :00 every 8 Medical (eight) Branch hours as needed for Nausea and Vomiting (N/V). losartan Yes [id number] 100mg Take 1 Un you 100 mg 9-23 tablet by ity of tablet 00:00: mouth [place] 00 daily. Medical Branch losartan Yes [id number] 100mg Take 1 Un you 100 mg 9-23 tablet by ity of tablet 00:00: mouth [place] 00 daily. Medical Branch losartan Yes [id number] 100mg Take 1 Un you 100 mg 9-23 tablet by ity of tablet 00:00: mouth [place] 00 daily. Medical Branch losartan 0 Yes [id number] 100mg Take 1 Un you 100 mg 9-23 tablet by ity of tablet 00:00: mouth [place] 00 daily. Medical Branch losartan 2018-0 Yes [id number] 100mg Take 1 Un you 100 mg 9-23 tablet by ity of tablet 00:00: mouth [place] 00 daily. Medical Branch losartan 2018-0 Yes [id number] 100mg Take 1 Un you 100 mg 9-23 tablet by ity of tablet 00:00: mouth [place] 00 daily. Medical Branch losartan 2019-0 Yes [id number] 100mg Take 1 Un you 100 mg 9-23 tablet by ity of tablet 00:00: mouth [place] 00 daily. Medical Branch losartan 2019-0 Yes [id number] 100mg Take 1 Un you 100 mg 9-23 tablet by ity of tablet 00:00: mouth [place] 00 daily. Medical Branch losartan 2018-0 Yes [id number] 100mg Take 1 Un you 100 mg 9-23 tablet by ity of tablet 00:00: mouth [place] 00 daily. Medical Branch losartan 2018-0 Yes [id number] 100mg Take 1 Un you 100 mg 9-23 tablet by ity of tablet 00:00: mouth [place] 00 daily. Medical Branch losartan 2019-0 Yes [id number] 100mg Take 1 Un you 100 mg 9-23 tablet by ity of tablet 00:00: mouth [place] 00 daily. Medical Branch losartan 2019-0 Yes [id number] 100mg Take 1 Un you 100 mg 9-23 tablet by ity of tablet 00:00: mouth [place] 00 daily. Medical Branch losartan 2018-0 Yes [id number] 100mg Take 1 Un you 100 mg 9-23 tablet by ity of tablet 00:00: mouth [place] 00 daily. Medical Branch losartan 2018-0 Yes [id number] 100mg Take 1 Un you 100 mg 9-23 tablet by ity of tablet 00:00: mouth [place] 00 daily. Medical Branch losartan 2018-0 Yes [id number] 100mg Take 1 Un you 100 mg 9-23 tablet by ity of tablet 00:00: mouth [place] 00 daily. Medical Branch losartan 2018-0 Yes [id number] 100mg Take 1 Un you 100 mg 9-23 tablet by ity of tablet 00:00: mouth [place] 00 daily. Medical Branch losartan 2018-0 Yes [id number] 100mg Take 1 Un you 100 mg 9-23 tablet by ity of tablet 00:00: mouth [place] 00 daily. Medical Branch losartan 2019-0 Yes [id number] 100mg Take 1 Un you 100 mg 9-23 tablet by ity of tablet 00:00: mouth [place] 00 daily. Medical Branch losartan 2018-0 Yes [id number] 100mg Take 1 Un you 100 mg 9-23 tablet by ity of tablet 00:00: mouth [place] 00 daily. Medical Branch losartan 2019-0 Yes [id number] 100mg Take 1 Un you 100 mg 9-23 tablet by ity of tablet 00:00: mouth [place] 00 daily. Medical Branch losartan 2019-0 Yes [id number] 100mg Take 1 Un you 100 mg 9-23 tablet by ity of tablet 00:00: mouth [place] 00 daily. Medical Branch losartan 2019-0 Yes [id number] 100mg Take 1 Un you 100 mg 9-23 tablet by ity of tablet 00:00: mouth [place] 00 daily. Medical Branch losartan 2019-0 Yes [id number] 100mg Take 1 Un you 100 mg 9-23 tablet by ity of tablet 00:00: mouth [place] 00 daily. Medical Branch losartan 2019-0 Yes [id number] 100mg Take 1 Un you 100 mg - tablet by ity of tablet 00:00: mouth [place] 00 daily. Medical Branch losartan 2018-2020- No [id number] 100mg Take 1 U nivers 100 mg -05 08-05 tablet by ity of tablet 00:00: 00:00 mouth [place] 00 :00 daily. Medical Branch losartan 2018-2020- No [id number] 100mg Take 1 U nivers 100 mg -05 08- tablet by ity of tablet 00:00: 00:00 mouth [place] 00 :00 daily. Medical Branch traMADol 50 2018-0 Yes [id number] 1 by mouth [facility] mg tablet 12-05 [id number] every 4-6 ity of 00:00: hours as [place] 00 needed for Medical pain Branch traMADol 50 2019-0 Yes [id number] 1 by mouth [facility] mg tablet 12-05 [id number] every 4-6 ity of 00:00: hours as [place] 00 needed for Medical pain Branch traMADol 50 2019-0 Yes [id number] 1 by mouth [facility] mg tablet 12-05 [id number] every 4-6 ity of 00:00: hours as [place] 00 needed for Medical pain Branch traMADol 50 2019-0 Yes [id number] 1 by mouth [facility] mg tablet 12-05 [id number] every 4-6 ity of 00:00: hours as [place] 00 needed for Medical pain Branch traMADol 50 2019-0 Yes [id number] 1 by mouth [facility] mg tablet 12-05 [id number] every 4-6 ity of 00:00: hours as [place] 00 needed for Medical pain Branch traMADol 50 2019-0 Yes [id number] 1 by mouth [facility]-05 002041 every 4-6 ity of 00:00: hours as [place] 00 needed for Medical pain Branch traMADol 50 2019-0 Yes [id number] 1 by mouth [facility] mg tablet - [id number] every 4-6 ity of 00:00: hours as [place] 00 needed for Medical pain Branch traMADol 50 2019-0 Yes [id number] 1 by mouth [facility] mg tablet 12-05 [id number] every 4-6 ity of 00:00: hours as [place] 00 needed for Medical pain Branch traMADol 50 2019-0 Yes [id number] 1 by mouth [facility] mg tablet - [id number] every 4-6 ity of 00:00: hours as [place] 00 needed for Medical pain Branch traMADol 50 2019-0 Yes [id number] 1 by mouth [facility] mg tablet 12-05 [id number] every 4-6 ity of 00:00: hours as [place] 00 needed for Medical pain Branch traMADol 50 2019-0 Yes [id number] 1 by mouth [facility] mg tablet 12-05 [id number] every 4-6 ity of 00:00: hours as [place] 00 needed for Medical pain Branch traMADol 50 2019-0 Yes [id number] 1 by mouth [facility] mg tablet 12-05 [id number] every 4-6 ity of 00:00: hours as [place] 00 needed for Medical pain Branch traMADol 50 2019-0 Yes [id number] 1 by mouth [facility] mg tablet 12-05 [id number] every 4-6 ity of 00:00: hours as [place] 00 needed for Medical pain Branch traMADol 50 2019-0 Yes [id number] 1 by mouth [facility] mg tablet 12-05 [id number] every 4-6 ity of 00:00: hours as [place] 00 needed for Medical pain Branch traMADol 50 2019-0 Yes [id number] 1 by mouth [facility] mg tablet 12-05 [id number] every 4-6 ity of 00:00: hours as [place] 00 needed for Medical pain Branch traMADol 50 2019-0 Yes [id number] 1 by mouth [facility] mg tablet 12-05 [id number] every 4-6 ity of 00:00: hours as [place] 00 needed for Medical pain Branch traMADol 50 2019-0 Yes [id number] 1 by mouth [facility] mg tablet 12-05 [id number] every 4-6 ity of 00:00: hours as [place] 00 needed for Medical pain Branch traMADol 50 2019-0 2020- No [id number] 1 by mouth [facility] mg tablet 12-05 [id number] every 4-6 it y of 00:00: 00:00 [...] Medical 12/01/18 at Branch 1745, Routine ketorolac 2019-0 2019- No 30mg 30 mg, Unive rs (TORADOL) 12-01 Slow IV ity of injection 20:45: 19:47 Push, [place] 30 mg 00 :00 ONCE, 1 Medical dose, [facility] 12/01/18 at 1545, [place]
Fa culty [...] 75ug 75 mcg, Un you (SUBLIMAZE 11-17 08-05 Slow IV ity o f (PF)) 02:15: 01:11 Push, [place] injection 00 :00 ONCE, 1 Medical 75 mcg dose, [facility] 11/16/18 at 2115, [place] pantoprazol Yes [id number] 40mg Take 1 [facility] e 40 mg EC 8-05 tablet by ity of tablet 00:00: mouth 2 [place] 00 (two) Medical times Branch daily. proMETHazin Yes [id number] 25mg Take 1 [facility] 25 mg 8-05 tablet by ity of tablet 00:00: mouth [place] 00 every 6 Medical (six) Branch hours as needed for N/V alternatin g with Ondansetro n. HYDROcodone Yes [id number] 1{tbl} Take 1 [facility] -acetaminop 8-05 tablet by ity of hen 7.5-325 00:00: mouth [place] mg per 00 every 6 Medical tablet (six) Branch hours as needed (Pain scal 7-10). pantoprazol Yes [id number] 40mg Take 1 [facility] 40 mg EC 8-05 tablet by ity of tablet 00:00: mouth 2 [place] 00 (two) Medical times Branch daily. proMETHazin Yes [id number] 25mg Take 1 [facility] 25 mg 8-05 tablet by ity of tablet 00:00: mouth [place] 00 every 6 Medical (six) Branch hours as needed for N/V alternatin g with Ondansetro n. HYDROcodone Yes [id number] 1{tbl} Take 1 [facility] -acetaminop 8-05 tablet by ity of hen 7.5-325 00:00: mouth [place] mg per 00 every 6 Medical tablet (six) Branch hours as needed (Pain scal 7-10). pantoprazol Yes [id number] 40mg Take 1 [facility] e 40 mg EC 8-05 tablet by ity of tablet 00:00: mouth 2 [place] 00 (two) Medical times Branch daily. proMETHazin Yes [id number] 25mg Take 1 [facility] e 25 mg 8-05 tablet by ity of tablet 00:00: mouth [place] 00 every 6 Medical (six) Branch hours as needed for N/V alternatin g with Ondansetro n. HYDROcodone Yes [id number] 1{tbl} Take 1 [facility] -acetaminop 8-05 tablet by ity of hen 7.5-325 00:00: mouth [place] mg per 00 every 6 Medical tablet (six) Branch hours as needed (Pain scal 7-10). pantoprazol Yes [id number] 40mg Take 1 [facility] e 40 mg EC 8-05 tablet by ity of tablet 00:00: mouth 2 [place] 00 (two) Medical times Branch daily. proMETHazin Yes [id number] 25mg Take 1 [facility] e 25 mg 8-05 tablet by ity of tablet 00:00: mouth [place] 00 every 6 Medical (six) Branch hours as needed for N/V alternatin g with Ondansetro n. HYDROcodone Yes [id number] 1{tbl} Take 1 [facility] -acetaminop 8-05 tablet by ity of hen 7.5-325 00:00: mouth [place] mg per 00 every 6 Medical tablet (six) Branch hours as needed (Pain scal 7-10). pantoprazol Yes [id number] 40mg Take 1 [facility] e 40 mg EC 8-05 tablet by ity of tablet 00:00: mouth 2 [place] 00 (two) Medical times Branch daily. proMETHazin Yes [id number] 25mg Take 1 [facility] e 25 mg 8-05 tablet by ity of tablet 00:00: mouth [place] 00 every 6 Medical (six) Branch hours as needed for N/V alternatin g with Ondansetro n. HYDROcodone Yes [id number] 1{tbl} Take 1 [facility] -acetaminop 8-05 tablet by ity of hen 7.5-325 00:00: mouth [place] mg per 00 every 6 Medical tablet (six) Branch hours as needed (Pain scal 7-10). pantoprazol Yes [id number] 40mg Take 1 [facility] e 40 mg EC 8-05 tablet by ity of tablet 00:00: mouth 2 [place] 00 (two) Medical times Branch daily. proMETHazin Yes [id number] 25mg Take 1 [facility] e 25 mg 8-05 tablet by ity of tablet 00:00: mouth [place] 00 every 6 Medical (six) Branch hours as needed for N/V alternatin g with Ondansetro n. HYDROcodone Yes [id number] 1{tbl} Take 1 [facility] -acetaminop 8-05 tablet by ity of hen 7.5-325 00:00: mouth [place] mg per 00 every 6 Medical tablet (six) Branch hours as needed (Pain scal 7-10). pantoprazol Yes [id number] 40mg Take 1 [facility] e 40 mg EC 8-05 tablet by ity of tablet 00:00: mouth 2 [place] 00 (two) Medical times Branch daily. proMETHazin Yes [id number] 25mg Take 1 [facility] e 25 mg 8-05 tablet by ity of tablet 00:00: mouth [place] 00 every 6 Medical (six) Branch hours as needed for N/V alternatin g with Ondansetro n. HYDROcodone Yes [id number] 1{tbl} Take 1 [facility] -acetaminop 8-05 tablet by ity of hen 7.5-325 00:00: mouth [place] mg per 00 every 6 Medical tablet (six) Branch hours as needed (Pain scal 7-10). pantoprazol Yes [id number] 40mg Take 1 [facility] e 40 mg EC 8-05 tablet by ity of tablet 00:00: mouth 2 [place] 00 (two) Medical times Branch daily. proMETHazin Yes [id number] 25mg Take 1 [facility] e 25 mg 8-05 tablet by ity of tablet 00:00: mouth [place] 00 every 6 Medical (six) Branch hours as needed for N/V alternatin g with Ondansetro n. HYDROcodone Yes [id number] 1{tbl} Take 1 [facility] -acetaminop 8-05 tablet by ity of hen 7.5-325 00:00: mouth [place] mg per 00 every 6 Medical tablet (six) Branch hours as needed (Pain scal 7-10). pantoprazol Yes [id number] 40mg Take 1 [facility] e 40 mg EC 8-05 tablet by ity of tablet 00:00: mouth 2 [place] 00 (two) Medical times Branch daily. proMETHazin Yes [id number] 25mg Take 1 [facility] e 25 mg 8-05 tablet by ity of tablet 00:00: mouth [place] 00 every 6 Medical (six) Branch hours as needed for N/V alternatin g with Ondansetro n. HYDROcodone Yes [id number] 1{tbl} Take 1 [facility] -acetaminop 8-05 tablet by ity of hen 7.5-325 00:00: mouth [place] mg per 00 every 6 Medical tablet (six) Branch hours as needed (Pain scal 7-10). pantoprazol Yes [id number] 40mg Take 1 [facility] e 40 mg EC 8-05 tablet by ity of tablet 00:00: mouth 2 [place] 00 (two) Medical times Branch daily. proMETHazin Yes [id number] 25mg Take 1 [facility] e 25 mg 8-05 tablet by ity of tablet 00:00: mouth [place] 00 every 6 Medical (six) Branch hours as needed for N/V alternatin g with Ondansetro n. HYDROcodone Yes [id number] 1{tbl} Take 1 [facility] -acetaminop 8-05 tablet by ity of hen 7.5-325 00:00: mouth [place] mg per 00 every 6 Medical tablet (six) Branch hours as needed (Pain scal 7-10). pantoprazol Yes [id number] 40mg Take 1 [facility] e 40 mg EC 8-05 tablet by ity of tablet 00:00: mouth 2 [place] 00 (two) Medical times Branch daily. proMETHazin Yes [id number] 25mg Take 1 [facility] e 25 mg 8-05 tablet by ity of tablet 00:00: mouth [place] 00 every 6 Medical (six) Branch hours as needed for N/V alternatin g with Ondansetro n. HYDROcodone Yes [id number] 1{tbl} Take 1 [facility] -acetaminop 8-05 tablet by ity of hen 7.5-325 00:00: mouth [place] mg per 00 every 6 Medical tablet (six) Branch hours as needed (Pain scal 7-10). pantoprazol Yes [id number] 40mg Take 1 [facility] e 40 mg EC 8-05 tablet by ity of tablet 00:00: mouth 2 [place] 00 (two) Medical times Branch daily. proMETHazin Yes [id number] 25mg Take 1 [facility] e 25 mg 8-05 tablet by ity of tablet 00:00: mouth [place] 00 every 6 Medical (six) Branch hours as needed for N/V alternatin g with Ondansetro n. HYDROcodone Yes [id number] 1{tbl} Take 1 [facility] -acetaminop 8-05 tablet by ity of hen 7.5-325 00:00: mouth [place] mg per 00 every 6 Medical tablet (six) Branch hours as needed (Pain scal 7-10). pantoprazol Yes [id number] 40mg Take 1 [facility] e 40 mg EC 8-05 tablet by ity of tablet 00:00: mouth 2 [place] 00 (two) Medical times Branch daily. proMETHazin Yes [id number] 25mg Take 1 [facility] e 25 mg 8-05 tablet by ity of tablet 00:00: mouth [place] 00 every 6 Medical (six) Branch hours as needed for N/V alternatin g with Ondansetro n. HYDROcodone Yes [id number] 1{tbl} Take 1 [facility] -acetaminop 8-05 tablet by ity of hen 7.5-325 00:00: mouth [place] mg per 00 every 6 Medical tablet (six) Branch hours as needed (Pain scal 7-10). pantoprazol Yes [id number] 40mg Take 1 [facility] e 40 mg EC 8-05 tablet by ity of tablet 00:00: mouth 2 [place] 00 (two) Medical times Branch daily. proMETHazin Yes [id number] 25mg Take 1 [facility] e 25 mg 8-05 tablet by ity of tablet 00:00: mouth [place] 00 every 6 Medical (six) Branch hours as needed for N/V alternatin g with Ondansetro n. HYDROcodone Yes [id number] 1{tbl} Take 1 [facility] -acetaminop 8-05 tablet by ity of hen 7.5-325 00:00: mouth [place] mg per 00 every 6 Medical tablet (six) Branch hours as needed (Pain scal 7-10). pantoprazol Yes [id number] 40mg Take 1 [facility] e 40 mg EC 8-05 tablet by ity of tablet 00:00: mouth 2 [place] 00 (two) Medical times Branch daily. proMETHazin Yes [id number] 25mg Take 1 [facility] e 25 mg 8-05 tablet by ity of tablet 00:00: mouth [place] 00 every 6 Medical (six) Branch hours as needed for N/V alternatin g with Ondansetro n. HYDROcodone Yes [id number] 1{tbl} Take 1 [facility] -acetaminop 8-05 tablet by ity of hen 7.5-325 00:00: mouth [place] mg per 00 every 6 Medical tablet (six) Branch hours as needed (Pain scal 7-10). pantoprazol Yes [id number] 40mg Take 1 [facility] e 40 mg EC 8-05 tablet by ity of tablet 00:00: mouth 2 [place] 00 (two) Medical times Branch daily. proMETHazin Yes [id number] 25mg Take 1 [facility] e 25 mg 8-05 tablet by ity of tablet 00:00: mouth [place] 00 every 6 Medical (six) Branch hours as needed for N/V alternatin g with Ondansetro n. HYDROcodone 2018- Yes [id number] 1{tbl} Take 1 [facility] -acetaminop 8-05 tablet by ity of hen 7.5-325 00:00: mouth [place] mg per 00 every 6 Medical tablet (six) Branch hours as needed (Pain scal 7-10). pantoprazol Yes [id number] 40mg Take 1 [facility] e 40 mg EC 8-05 tablet by ity of tablet 00:00: mouth 2 [place] 00 (two) Medical times Branch daily. proMETHazin 2018-0 Yes [id number] 25mg Take 1 [facility] e 25 mg 8-05 tablet by ity of tablet 00:00: mouth [place] 00 every 6 Medical (six) Branch hours as needed for N/V alternatin g with Ondansetro n. HYDROcodone 2018-0 Yes [id number] 1{tbl} Take 1 [facility] -acetaminop 8-05 tablet by ity of hen 7.5-325 00:00: mouth [place] mg per 00 every 6 Medical tablet (six) Branch hours as needed (Pain scal 7-10). pantoprazol 2018- Yes [id number] 40mg Take 1 [facility] e 40 mg EC 8-05 tablet by ity of tablet 00:00: mouth 2 [place] 00 (two) Medical times Branch daily. proMETHazin Yes [id number] 25mg Take 1 [facility] e 25 mg 8-05 tablet by ity of tablet 00:00: mouth [place] 00 every 6 Medical (six) Branch hours as needed for N/V alternatin g with Ondansetro n. HYDROcodone Yes [id number] 1{tbl} Take 1 [facility] -acetaminop 8-05 tablet by ity of hen 7.5-325 00:00: mouth [place] mg per 00 every 6 Medical tablet (six) Branch hours as needed (Pain scal 7-10). pantoprazol Yes [id number] 40mg Take 1 [facility] e 40 mg EC 8-05 tablet by ity of tablet 00:00: mouth 2 [place] 00 (two) Medical times Branch daily. proMETHazin Yes [id number] 25mg Take 1 [facility] e 25 mg 8-05 tablet by ity of tablet 00:00: mouth [place] 00 every 6 Medical (six) Branch hours as needed for N/V alternatin g with Ondansetro n. HYDROcodone Yes [id number] 1{tbl} Take 1 [facility] -acetaminop 8-05 tablet by ity of hen 7.5-325 00:00: mouth [place] mg per 00 every 6 Medical tablet (six) Branch hours as needed (Pain scal 7-10). HYDROcodone 2018- Yes [id number] 1{tbl} Take 1 [facility] -acetaminop 8-05 tablet by ity of hen 7.5-325 00:00: mouth [place] mg per 00 every 6 Medical tablet (six) Branch hours as needed (Pain scal 7-10). HYDROcodone 2018- Yes [id number] 1{tbl} Take 1 [facility] -acetaminop 8-05 tablet by ity of hen 7.5-325 00:00: mouth [place] mg per 00 every 6 Medical tablet (six) Branch hours as needed (Pain scal 7-10). HYDROcodone Yes [id number] 1{tbl} Take 1 [facility] -acetaminop 8-05 tablet by ity of hen 7.5-325 00:00: mouth [place] mg per 00 every 6 Medical tablet (six) Branch hours as needed (Pain scal 7-10). HYDROcodone Yes [id number] 1{tbl} Take 1 [facility] -acetaminop 8-05 tablet by ity of hen 7.5-325 00:00: mouth [place] mg per 00 every 6 Medical tablet (six) Branch hours as needed (Pain scal 7-10). HYDROcodone Yes [id number] 1{tbl} Take 1 [facility] -acetaminop 8-05 tablet by ity of hen 7.5-325 00:00: mouth [place] mg per 00 every 6 Medical tablet (six) Branch hours as needed (Pain scal 7-10). HYDROcodone Yes [id number] 1{tbl} Take 1 [facility] -acetaminop 8-05 tablet by ity of hen 7.5-325 00:00: mouth [place] mg per 00 every 6 Medical tablet (six) Branch hours as needed (Pain scal 7-10). HYDROcodone Yes [id number] 1{tbl} Take 1 [facility] -acetaminop 8-05 tablet by ity of hen 7.5-325 00:00: mouth [place] mg per 00 every 6 Medical tablet (six) Branch hours as needed (Pain scal 7-10). HYDROcodone Yes [id number] 1{tbl} Take 1 [facility] -acetaminop 8-05 tablet by ity of hen 7.5-325 00:00: mouth [place] mg per 00 every 6 Medical tablet (six) Branch hours as needed (Pain scal 7-10). HYDROcodone Yes [id number] 1{tbl} Take 1 [facility] -acetaminop 8-05 tablet by ity of hen 7.5-325 00:00: mouth [place] mg per 00 every 6 Medical tablet (six) Branch hours as needed (Pain scal 7-10). HYDROcodone Yes [id number] 1{tbl} Take 1 [facility] -acetaminop 8-05 tablet by ity of hen 7.5-325 00:00: mouth [place] mg per 00 every 6 Medical tablet (six) Branch hours as needed (Pain scal 7-10). HYDROcodone Yes [id number] 1{tbl} Take 1 [facility] -acetaminop 8-05 tablet by ity of hen 7.5-325 00:00: mouth [place] mg per 00 every 6 Medical tablet (six) Branch hours as needed (Pain scal 7-10). HYDROcodone Yes [id number] 1{tbl} Take 1 [facility] -acetaminop 8-05 tablet by ity of hen 7.5-325 00:00: mouth [place] mg per 00 every 6 Medical tablet (six) Branch hours as needed (Pain scal 7-10). HYDROcodone Yes [id number] 1{tbl} Take 1 [facility] -acetaminop 8-05 tablet by ity of hen 7.5-325 00:00: mouth [place] mg per 00 every 6 Medical tablet (six) Branch hours as needed (Pain scal 7-10). HYDROcodone Yes [id number] 1{tbl} Take 1 [facility] -acetaminop 8-05 tablet by ity of hen 7.5-325 00:00: mouth [place] mg per 00 every 6 Medical tablet (six) Branch hours as needed (Pain scal 7-10). HYDROcodone Yes [id number] 1{tbl} Take 1 [facility] -acetaminop 8-05 tablet by ity of hen 7.5-325 00:00: mouth [place] mg per 00 every 6 Medical tablet (six) Branch hours as needed (Pain scal 7-10). HYDROcodone Yes [id number] 1{tbl} Take 1 [facility] -acetaminop 8-05 tablet by ity of hen 7.5-325 00:00: mouth [place] mg per 00 every 6 Medical tablet (six) Branch hours as needed (Pain scal 7-10). HYDROcodone Yes [id number] 1{tbl} Take 1 [facility] -acetaminop 8-05 tablet by ity of hen 7.5-325 00:00: mouth [place] mg per 00 every 6 Medical tablet (six) Branch hours as needed (Pain scal 7-10). HYDROcodone Yes [id number] 1{tbl} Take 1 [facility] -acetaminop 8-05 tablet by ity of hen 7.5-325 00:00: mouth [place] mg per 00 every 6 Medical tablet (six) Branch hours as needed (Pain scal 7-10). HYDROcodone Yes [id number] 1{tbl} Take 1 [facility] -acetaminop 8-05 tablet by ity of hen 7.5-325 00:00: mouth [place] mg per 00 every 6 Medical tablet (six) Branch hours as needed (Pain scal 7-10). HYDROcodone Yes [id number] 1{tbl} Take 1 [facility] -acetaminop 8-05 tablet by ity of hen 7.5-325 00:00: mouth [place] mg per 00 every 6 Medical tablet (six) Branch hours as needed (Pain scal 7-10). HYDROcodone Yes [id number] 1{tbl} Take 1 [facility] -acetaminop 8-05 tablet by ity of hen 7.5-325 00:00: mouth [place] mg per 00 every 6 Medical tablet (six) Branch hours as needed (Pain scal 7-10). HYDROcodone Yes [id number] 1{tbl} Take 1 [facility] -acetaminop 8-05 tablet by ity of hen 7.5-325 00:00: mouth [place] mg per 00 every 6 Medical tablet (six) Branch hours as needed (Pain scal 7-10). HYDROcodone Yes [id number] 1{tbl} Take 1 [facility] -acetaminop 8-05 tablet by ity of hen 7.5-325 00:00: mouth [place] mg per 00 every 6 Medical tablet (six) Branch hours as needed (Pain scal 7-10). HYDROcodone Yes [id number] 1{tbl} Take 1 [facility] -acetaminop 8-05 tablet by ity of hen 7.5-325 00:00: mouth [place] mg per 00 every 6 Medical tablet (six) Branch hours as needed (Pain scal 7-10). HYDROcodone Yes [id number] 1{tbl} Take 1 [facility] -acetaminop 8-05 tablet by ity of hen 7.5-325 00:00: mouth [place] mg per 00 every 6 Medical tablet (six) Branch hours as needed (Pain scal 7-10). HYDROcodone Yes [id number] 1{tbl} Take 1 [facility] -acetaminop 8-05 tablet by ity of hen 7.5-325 00:00: mouth [place] mg per 00 every 6 Medical tablet (six) Branch hours as needed (Pain scal 7-10). HYDROcodone Yes [id number] 1{tbl} Take 1 [facility] -acetaminop 8-05 tablet by ity of hen 7.5-325 00:00: mouth [place] mg per 00 every 6 Medical tablet (six) Branch hours as needed (Pain scal 7-10). HYDROcodone Yes [id number] 1{tbl} Take 1 [facility] -acetaminop 8-05 tablet by ity of hen 7.5-325 00:00: mouth [place] mg per 00 every 6 Medical tablet (six) Branch hours as needed (Pain scal 7-10). HYDROcodone Yes [id number] 1{tbl} Take 1 [facility] -acetaminop 8-05 tablet by ity of hen 7.5-325 00:00: mouth [place] mg per 00 every 6 Medical tablet (six) Branch hours as needed (Pain scal 7-10). HYDROcodone Yes [id number] 1{tbl} Take 1 [facility] -acetaminop 8-05 tablet by ity of hen 7.5-325 00:00: mouth [place] mg per 00 every 6 Medical tablet (six) Branch hours as needed (Pain scal 7-10). HYDROcodone Yes [id number] 1{tbl} Take 1 [facility] -acetaminop 8-05 tablet by ity of hen 7.5-325 00:00: mouth [place] mg per 00 every 6 Medical tablet (six) Branch hours as needed (Pain scal 7-10). HYDROcodone Yes [id number] 1{tbl} Take 1 [facility] -acetaminop 8-05 tablet by ity of hen 7.5-325 00:00: mouth [place] mg per 00 every 6 Medical tablet (six) Branch hours as needed (Pain scal 7-10). HYDROcodone Yes [id number] 1{tbl} Take 1 [facility] -acetaminop 8-05 tablet by ity of hen 7.5-325 00:00: mouth [place] mg per 00 every 6 Medical tablet (six) Branch hours as needed (Pain scal 7-10). HYDROcodone Yes [id number] 1{tbl} Take 1 [facility] -acetaminop 8-05 tablet by ity of hen 7.5-325 00:00: mouth [place] mg per 00 every 6 Medical tablet (six) Branch hours as needed (Pain scal 7-10). HYDROcodone Yes [id number] 1{tbl} Take 1 [facility] -acetaminop 8-05 tablet by ity of hen 7.5-325 00:00: mouth [place] mg per 00 every 6 Medical tablet (six) Branch hours as needed (Pain scal 7-10). HYDROcodone Yes [id number] 1{tbl} Take 1 [facility] -acetaminop 8-05 tablet by ity of hen 7.5-325 00:00: mouth [place] mg per 00 every 6 Medical tablet (six) Branch hours as needed (Pain scal 7-10). HYDROcodone Yes [id number] 1{tbl} Take 1 [facility] -acetaminop 8-05 tablet by ity of hen 7.5-325 00:00: mouth [place] mg per 00 every 6 Medical tablet (six) Branch hours as needed (Pain scal 7-10). pantoprazol Yes [id number] 40mg Take 1 [facility] e 40 mg EC 8-05 tablet by ity of tablet 00:00: mouth 2 [place] 00 (two) Medical times Branch daily. ondansetron Yes [id number] 4mg Take 1 [facility] 4 mg tablet 8-05 tablet by ity of 00:00: mouth [place] 00 every 8 Medical (eight) Branch hours as needed for Nausea and Vomiting (N/V). proMETHazin Yes [id number] 25mg Take 1 [facility] e 25 mg 8-05 tablet by ity of tablet 00:00: mouth [place] 00 every 6 Medical (six) Branch hours as needed for N/V alternatin g with Ondansetro n. HYDROcodone Yes [id number] 1{tbl} Take 1 [facility] -acetaminop 8-05 tablet by ity of hen 7.5-325 00:00: mouth [place] mg per 00 every 6 Medical tablet (six) Branch hours as needed (Pain scal 7-10). pantoprazol Yes [id number] 40mg Take 1 [facility] e 40 mg EC 8-05 tablet by ity of tablet 00:00: mouth 2 [place] 00 (two) Medical times Branch daily. ondansetron 2019- Yes [id number] 4mg Take 1 [facility] 4 mg tablet 8-05 tablet by ity of 00:00: mouth [place] 00 every 8 Medical (eight) Branch hours as needed for Nausea and Vomiting (N/V). proMETHazin 2019- Yes [id number] 25mg Take 1 [facility] e 25 mg 8-05 tablet by ity of tablet 00:00: mouth [place] 00 every 6 Medical (six) Branch hours as needed for N/V alternatin g with Ondansetro n. HYDROcodone 2018- Yes [id number] 1{tbl} Take 1 [facility] -acetaminop 8-05 tablet by ity of hen 7.5-325 00:00: mouth [place] mg per 00 every 6 Medical tablet (six) Branch hours as needed (Pain scal 7-10). pantoprazol Yes [id number] 40mg Take 1 [facility] e 40 mg EC 8-05 tablet by ity of tablet 00:00: mouth 2 [place] 00 (two) Medical times Branch daily. ondansetron Yes [id number] 4mg Take 1 [facility] 4 mg tablet 8-05 tablet by ity of 00:00: mouth [place] 00 every 8 Medical (eight) Branch hours as needed for Nausea and Vomiting (N/V). proMETHazin 2018- Yes [id number] 25mg Take 1 [facility] e 25 mg 8-05 tablet by ity of tablet 00:00: mouth [place] 00 every 6 Medical (six) Branch hours as needed for N/V alternatin g with Ondansetro n. HYDROcodone 2018- Yes [id number] 1{tbl} Take 1 [facility] -acetaminop 8-05 tablet by ity of hen 7.5-325 00:00: mouth [place] mg per 00 every 6 Medical tablet (six) Branch hours as needed (Pain scal 7-10). pantoprazol 2019-0 Yes [id number] 40mg Take 1 [facility] e 40 mg EC 8-05 tablet by ity of tablet 00:00: mouth 2 [place] 00 (two) Medical times Branch daily. ondansetron 2018- Yes [id number] 4mg Take 1 [facility] 4 mg tablet 8-05 tablet by ity of 00:00: mouth [place] 00 every 8 Medical (eight) Branch hours as needed for Nausea and Vomiting (N/V). proMETHazin 2019-0 Yes [id number] 25mg Take 1 [facility] e 25 mg 8-05 tablet by ity of tablet 00:00: mouth [place] 00 every 6 Medical (six) Branch hours as needed for N/V alternatin g with Ondansetro n. HYDROcodone 2018- Yes [id number] 1{tbl} Take 1 [facility] -acetaminop 8-05 tablet by ity of hen 7.5-325 00:00: mouth [place] mg per 00 every 6 Medical tablet (six) Branch hours as needed (Pain scal 7-10). pantoprazol Yes [id number] 40mg Take 1 [facility] e 40 mg EC 8-05 tablet by ity of tablet 00:00: mouth 2 [place] 00 (two) Medical times Branch daily. ondansetron 2018- Yes [id number] 4mg Take 1 [facility] 4 mg tablet 8-05 tablet by ity of 00:00: mouth [place] 00 every 8 Medical (eight) Branch hours as needed for Nausea and Vomiting (N/V). proMETHazin Yes [id number] 25mg Take 1 [facility] e 25 mg 8-05 tablet by ity of tablet 00:00: mouth [place] 00 every 6 Medical (six) Branch hours as needed for N/V alternatin g with Ondansetro n. HYDROcodone 2018- Yes [id number] 1{tbl} Take 1 [facility] -acetaminop 8-05 tablet by ity of hen 7.5-325 00:00: mouth [place] mg per 00 every 6 Medical tablet (six) Branch hours as needed (Pain scal 7-10). pantoprazol 2018- Yes [id number] 40mg Take 1 [facility] e 40 mg EC 8-05 tablet by ity of tablet 00:00: mouth 2 [place] 00 (two) Medical times Branch daily. ondansetron 2018-0 Yes [id number] 4mg Take 1 [facility] 4 mg tablet 8-05 tablet by ity of 00:00: mouth [place] 00 every 8 Medical (eight) Branch hours as needed for Nausea and Vomiting (N/V). proMETHazin 2018- Yes [id number] 25mg Take 1 [facility] e 25 mg 8-05 tablet by ity of tablet 00:00: mouth [place] 00 every 6 Medical (six) Branch hours as needed for N/V alternatin g with Ondansetro n. HYDROcodone Yes [id number] 1{tbl} Take 1 [facility] -acetaminop 8-05 tablet by ity of hen 7.5-325 00:00: mouth [place] mg per 00 every 6 Medical tablet (six) Branch hours as needed (Pain scal 7-10). pantoprazol Yes [id number] 40mg Take 1 [facility] e 40 mg EC 8-05 tablet by ity of tablet 00:00: mouth 2 [place] 00 (two) Medical times Branch daily. ondansetron Yes [id number] 4mg Take 1 [facility] 4 mg tablet 8-05 tablet by ity of 00:00: mouth [place] 00 every 8 Medical (eight) Branch hours as needed for Nausea and Vomiting (N/V). proMETHazin Yes [id number] 25mg Take 1 [facility] e 25 mg 8-05 tablet by ity of tablet 00:00: mouth [place] 00 every 6 Medical (six) Branch hours as needed for N/V alternatin g with Ondansetro n. HYDROcodone Yes [id number] 1{tbl} Take 1 [facility] -acetaminop 8-05 tablet by ity of hen 7.5-325 00:00: mouth [place] mg per 00 every 6 Medical tablet (six) Branch hours as needed (Pain scal 7-10). pantoprazol Yes [id number] 40mg Take 1 Univers e 40 mg EC 8-05 tablet by ity of tablet 00:00: mouth 2 [place] 00 (two) Medical times Branch daily. ondansetron Yes [id number] 4mg Take 1 [facility] 4 mg tablet 8-05 tablet by ity of 00:00: mouth [place] 00 every 8 Medical (eight) Branch hours as needed for Nausea and Vomiting (N/V). proMETHazin Yes [id number] 25mg Take 1 [facility] e 25 mg 8-05 tablet by ity of tablet 00:00: mouth [place] 00 every 6 Medical (six) Branch hours as needed for N/V alternatin g with Ondansetro n. HYDROcodone Yes [id number] 1{tbl} Take 1 [facility] -acetaminop 8-05 tablet by ity of hen 7.5-325 00:00: mouth [place] mg per 00 every 6 Medical tablet (six) Branch hours as needed (Pain scal 7-10). pantoprazol 2018-0 Yes [id number] 40mg Take 1 [facility] e 40 mg EC 8-05 tablet by ity of tablet 00:00: mouth 2 [place] 00 (two) Medical times Branch daily. ondansetron 2018- Yes [id number] 4mg Take 1 [facility] 4 mg tablet 8-05 tablet by ity of 00:00: mouth [place] 00 every 8 Medical (eight) Branch hours as needed for Nausea and Vomiting (N/V). proMETHazin 2018- Yes [id number] 25mg Take 1 [facility] e 25 mg 8-05 tablet by ity of tablet 00:00: mouth [place] 00 every 6 Medical (six) Branch hours as needed for N/V alternatin g with Ondansetro n. HYDROcodone Yes [id number] 1{tbl} Take 1 [facility] -acetaminop 8-05 tablet by ity of hen 7.5-325 00:00: mouth [place] mg per 00 every 6 Medical tablet (six) Branch hours as needed (Pain scal 7-10). pantoprazol Yes [id number] 40mg Take 1 [facility] e 40 mg EC 8-05 tablet by ity of tablet 00:00: mouth 2 [place] 00 (two) Medical times Branch daily. ondansetron 2018- Yes [id number] 4mg Take 1 [facility] 4 mg tablet 8-05 tablet by ity of 00:00: mouth [place] 00 every 8 Medical (eight) Branch hours as needed for Nausea and Vomiting (N/V). proMETHazin 2019-0 Yes [id number] 25mg Take 1 [facility] e 25 mg 8-05 tablet by ity of tablet 00:00: mouth [place] 00 every 6 Medical (six) Branch hours as needed for N/V alternatin g with Ondansetro n. HYDROcodone 2018-0 Yes [id number] 1{tbl} Take 1 [facility] -acetaminop 8-05 tablet by ity of hen 7.5-325 00:00: mouth [place] mg per 00 every 6 Medical tablet (six) Branch hours as needed (Pain scal 7-10). pantoprazol 2018- Yes [id number] 40mg Take 1 [facility] e 40 mg EC 8-05 tablet by ity of tablet 00:00: mouth 2 [place] 00 (two) Medical times Branch daily. ondansetron 2018-0 Yes [id number] 4mg Take 1 [facility] 4 mg tablet 8-05 tablet by ity of 00:00: mouth [place] 00 every 8 Medical (eight) Branch hours as needed for Nausea and Vomiting (N/V). proMETHazin 2018- Yes [id number] 25mg Take 1 [facility] e 25 mg 8-05 tablet by ity of tablet 00:00: mouth [place] 00 every 6 Medical (six) Branch hours as needed for N/V alternatin g with Ondansetro n. HYDROcodone 2018- Yes [id number] 1{tbl} Take 1 [facility] -acetaminop 8-05 tablet by ity of hen 7.5-325 00:00: mouth [place] mg per 00 every 6 Medical tablet (six) Branch hours as needed (Pain scal 7-10). pantoprazol Yes [id number] 40mg Take 1 [facility] e 40 mg EC 8-05 tablet by ity of tablet 00:00: mouth 2 [place] 00 (two) Medical times Branch daily. ondansetron Yes [id number] 4mg Take 1 [facility] 4 mg tablet 8-05 tablet by ity of 00:00: mouth [place] 00 every 8 Medical (eight) Branch hours as needed for Nausea and Vomiting (N/V). proMETHazin 2018-0 Yes [id number] 25mg Take 1 [facility] e 25 mg 8-05 tablet by ity of tablet 00:00: mouth [place] 00 every 6 Medical (six) Branch hours as needed for N/V alternatin g with Ondansetro n. HYDROcodone 2018-0 Yes [id number] 1{tbl} Take 1 [facility] -acetaminop 8-05 tablet by ity of hen 7.5-325 00:00: mouth [place] mg per 00 every 6 Medical tablet (six) Branch hours as needed (Pain scal 7-10). pantoprazol 2018-0 Yes [id number] 40mg Take 1 [facility] e 40 mg EC 8-05 tablet by ity of tablet 00:00: mouth 2 [place] 00 (two) Medical times Branch daily. ondansetron 2018- Yes [id number] 4mg Take 1 [facility] 4 mg tablet 8-05 tablet by ity of 00:00: mouth [place] 00 every 8 Medical (eight) Branch hours as needed for Nausea and Vomiting (N/V). proMETHazin 2018-0 Yes [id number] 25mg Take 1 [facility] e 25 mg 8-05 tablet by ity of tablet 00:00: mouth [place] 00 every 6 Medical (six) Branch hours as needed for N/V alternatin g with Ondansetro n. HYDROcodone Yes [id number] 1{tbl} Take 1 [facility] -acetaminop 8-05 tablet by ity of hen 7.5-325 00:00: mouth [place] mg per 00 every 6 Medical tablet (six) Branch hours as needed (Pain scal 7-10). pantoprazol Yes [id number] 40mg Take 1 [facility] e 40 mg EC 8-05 tablet by ity of tablet 00:00: mouth 2 [place] 00 (two) Medical times Branch daily. ondansetron Yes [id number] 4mg Take 1 [facility] 4 mg tablet 8-05 tablet by ity of 00:00: mouth [place] 00 every 8 Medical (eight) Branch hours as needed for Nausea and Vomiting (N/V). proMETHazin 2018- Yes [id number] 25mg Take 1 [facility] e 25 mg 8-05 tablet by ity of tablet 00:00: mouth [place] 00 every 6 Medical (six) Branch hours as needed for N/V alternatin g with Ondansetro n. HYDROcodone 2018- Yes [id number] 1{tbl} Take 1 [facility] -acetaminop 8-05 tablet by ity of hen 7.5-325 00:00: mouth [place] mg per 00 every 6 Medical tablet (six) Branch hours as needed (Pain scal 7-10). pantoprazol 2018- Yes [id number] 40mg Take 1 [facility] e 40 mg EC 8-05 tablet by ity of tablet 00:00: mouth 2 [place] 00 (two) Medical times Branch daily. ondansetron Yes [id number] 4mg Take 1 [facility] 4 mg tablet 8-05 tablet by ity of 00:00: mouth [place] 00 every 8 Medical (eight) Branch hours as needed for Nausea and Vomiting (N/V). proMETHazin 2018- Yes [id number] 25mg Take 1 [facility] e 25 mg 8-05 tablet by ity of tablet 00:00: mouth [place] 00 every 6 Medical (six) Branch hours as needed for N/V alternatin g with Ondansetro n. HYDROcodone Yes [id number] 1{tbl} Take 1 [facility] -acetaminop 8-05 tablet by ity of hen 7.5-325 00:00: mouth [place] mg per 00 every 6 Medical tablet (six) Branch hours as needed (Pain scal 7-10). pantoprazol Yes [id number] 40mg Take 1 [facility] e 40 mg EC 8-05 tablet by ity of tablet 00:00: mouth 2 [place] 00 (two) Medical times Branch daily. proMETHazin Yes [id number] 25mg Take 1 [facility] e 25 mg 8-05 tablet by ity of tablet 00:00: mouth [place] 00 every 6 Medical (six) Branch hours as needed for N/V alternatin g with Ondansetro n. HYDROcodone Yes [id number] 1{tbl} Take 1 [facility] -acetaminop 8-05 tablet by ity of hen 7.5-325 00:00: mouth [place] mg per 00 every 6 Medical tablet (six) Branch hours as needed (Pain scal 7-10). pantoprazol Yes [id number] 40mg Take 1 [facility] e 40 mg EC 8-05 tablet by ity of tablet 00:00: mouth 2 [place] 00 (two) Medical times Branch daily. proMETHazin Yes [id number] 25mg Take 1 [facility] e 25 mg 8-05 tablet by ity of tablet 00:00: mouth [place] 00 every 6 Medical (six) Branch hours as needed for N/V alternatin g with Ondansetro n. HYDROcodone Yes [id number] 1{tbl} Take 1 [facility] -acetaminop 8-05 tablet by ity of hen 7.5-325 00:00: mouth [place] mg per 00 every 6 Medical tablet (six) Branch hours as needed (Pain scal 7-10). pantoprazol 2018- Yes [id number] 40mg Take 1 [facility] e 40 mg EC 8-05 tablet by ity of tablet 00:00: mouth 2 [place] 00 (two) Medical times Branch daily. proMETHazin Yes [id number] 25mg Take 1 [facility] e 25 mg 8-05 tablet by ity of tablet 00:00: mouth [place] 00 every 6 Medical (six) Branch hours as needed for N/V alternatin g with Ondansetro n. HYDROcodone Yes [id number] 1{tbl} Take 1 [facility] -acetaminop 8-05 tablet by ity of hen 7.5-325 00:00: mouth [place] mg per 00 every 6 Medical tablet (six) Branch hours as needed (Pain scal 7-10). pantoprazol Yes [id number] 40mg Take 1 [facility] e 40 mg EC 8-05 tablet by ity of tablet 00:00: mouth 2 [place] 00 (two) Medical times Branch daily. proMETHazin Yes [id number] 25mg Take 1 [facility] e 25 mg 8-05 tablet by ity of tablet 00:00: mouth [place] 00 every 6 Medical (six) Branch hours as needed for N/V alternatin g with Ondansetro n. HYDROcodone Yes [id number] 1{tbl} Take 1 [facility] -acetaminop 8-05 tablet by ity of hen 7.5-325 00:00: mouth [place] mg per 00 every 6 Medical tablet (six) Branch hours as needed (Pain scal 7-10). pantoprazol Yes [id number] 40mg Take 1 [facility] e 40 mg EC 8-05 tablet by ity of tablet 00:00: mouth 2 [place] 00 (two) Medical times Branch daily. proMETHazin Yes [id number] 25mg Take 1 [facility] e 25 mg 8-05 tablet by ity of tablet 00:00: mouth [place] 00 every 6 Medical (six) Branch hours as needed for N/V alternatin g with Ondansetro n. HYDROcodone Yes [id number] 1{tbl} Take 1 [facility] -acetaminop 8-05 tablet by ity of hen 7.5-325 00:00: mouth [place] mg per 00 every 6 Medical tablet (six) Branch hours as needed (Pain scal 7-10). HYDROcodone 2021- No [id number] 1{tbl} Take 1 [facility] -acetaminop 8-05 05-27 tablet by it y of hen 7.5-325 00:00: 00:00 mouth [place] mg per 00 :00 every 6 Medical tablet (six) Branch hours as needed (Pain scal 7-10). pantoprazol 2020- No [id number] 40mg Take 1 [facility] e 40 mg EC 8-05 04-05 tablet by ity of tablet 00:00: 00:00 mouth 2 [place] 00 :00 (two) Medical times Branch daily. proMETHazin 2020- No [id number] 25mg Take 1 [facility] e 25 mg 8-05 04-05 tablet by ity of tablet 00:00: 00:00 mouth [place] 00 :00 every 6 Medical (six) Branch hours as needed for N/V alternatin g with Ondansetro n. pantoprazol 2020- No [id number] 40mg Take 1 [facility] e 40 mg EC 8-05 04-05 tablet by ity of tablet 00:00: 00:00 mouth 2 [place] 00 :00 (two) Medical times Branch daily. proMETHazin 2020- No [id number] 25mg Take 1 [facility] e 25 mg 8-05 04-05 tablet by ity of tablet 00:00: 00:00 mouth [place] 00 :00 every 6 Medical (six) Branch hours as needed for N/V alternatin g with Ondansetro n. HYDROcodone Yes 1{tbl} 1 tablet, Univers -acetaminop 8 Oral, ity of hen (NORCO) 19:23: Q6HPRN, [place] as 10-325 mg 44 Starting Medica l tablet 1 [place] 11/16/18 Bran h tablet at 1423, Until Discontinu ed, Routine, Pain (scale 4-6), Pain (scale 7-10) citalopram 2018- Yes 10mg 10 mg, Unive rs (CELEXA) 8-04 Oral, ity of tablet 10 14:00: DAILY, [place] mg 00 First dose Medical on [facility] 11/16/18 at 0900, Until Discontinu ed, Routine losartan Yes 100mg 100 mg, Unive rs (COZAAR) 8-04 Oral, ity of tablet 100 14:00: DAILY, [place] mg 00 First dose Medical on [facility] 11/16/18 at 0900, Until Discontinu ed lipase-prot 2018- Yes 3{capsu 3 capsule, Univers ease-amylas 11-16 le} Oral, TID ity of e (CREON) 13:00: MEALS, [place] 12,000-38,0 00 First dose Me dical 00 -60,000 on [facility] unit 11/16/18 at capsule 3 0800, capsule Until Discontinu ed FENTanyl PF 2019- No 25ug 25 mcg, Un you (SUBLIMAZE 11-16 Slow IV ity o f (PF)) 12:38: 19:23 Push, [place] injection 00 :28 Q6HPRN, Medical 25 mcg Starting [facility] 11/16/18 at 0738, Until [place] 11/16/18 at 1423, Routine, Pain (scale 7-10) baclofen 2018- Yes 10mg 10 mg, Univers (LIORESAL) 8 Oral, TID, ity of tablet 10 05:45: First [place] mg 00 on [facility] 11/16/18 at Branch 0045, Until Discontinu ed, Routine QUEtiapine Yes 100mg 100 mg, Uni vers (SEROQUEL) 8-04 Oral, QHS, ity of tablet 100 02:00: First dose [place] mg 00 on [facility] 11/15/18 at Branch 2100, Until Discontinu ed, Routine divalproex Yes 125mg 125 mg, Uni vers (DEPAKOTE) 8-04 Oral, QHS, ity of EC tablet 02:00: First dose [place] 125 mg 00 on [facility] 11/15/18 at Branch 2100, Until [...] 01:00: First dose [place] mg 00 on [facility] 11/15/18 at Branch 2000, Until Discontinu ed, Routine lactated 2019- No 1000mL at 150 Univ ers ringers IV 8 08-04 mL/hr, ity of infusion 23:45: 11:44 [...] 4-6), Pain (scale 7-10) FENTanyl PF 2019- 2019- No 12.5ug 12.5 mcg, Univers (SUBLIMAZE 11-15 Slow IV ity o f (PF)) 22:44: 12:38 Push, [place] injection 08 :16 Q6HPRN, Medical 12.5 mcg Starting Branch 11/15/18 at 1744, Until 11/16/18 at 0738, Routine, Pain (scale 7-10) ondansetron 2019-0 Yes 4mg 4 mg, Slow Univers (ZOFRAN 11-15 IV Push, ity of (PF)) 22:43: Q6HPRN, [place] injection 4 29 Starting Medi brandy mg 11/15/18 Branch at 1743, Until Discontinu ed, Routine, Nausea and Vomiting (N/V) acetaminoph 2019-0 Yes 650mg 650 mg, Un you en [...] Sat Medica l mg(2.5 mg 11/15/18 at [facility] h base)/3 mL 1130, [place] nebulizer solution [...] at Branch 1045, [place] traMADol 2019- No [id number] 50mg Take 1 Univers (ULTRAM) 50 10-31 9103 tablet by it y of mg tablet 00:00: 00:00 mouth [place] 00 :00 every 8 Medical (eight) Branch hours as needed for Pain (scale 4-6). CREON 0 Yes Take by Univers 36,000-114, [...] 3 ity o f 000- 00:00: (three) [place] 180,000 00 times Medical unit CpDR daily with Bran ch meals. CREON 2018-0 Yes Take by Univers 36,000-114, 7-11 mouth 3 ity o f 000- 00:00: (three) [place] 180,000 00 times Medical unit CpDR daily with Bran ch meals. CREON 2018-0 Yes Take by Univers 36,000-114, 7-11 mouth 3 ity o f 000- 00:00: (three) [place] 180,000 00 times Medical unit CpDR daily with Bran ch meals. CREON 2018-0 Yes Take by Univers 36,000-114, 7-11 mouth 3 ity o f 000- 00:00: (three) [place] 180,000 00 times Medical unit CpDR daily [...] 3 ity o f 000- 00:00: (three) [place] 180,000 00 times Medical unit CpDR daily [...] unit CpDR daily with Bran ch meals. CRE2018 Yes Take by Univers 36,000-114, 7-11 mouth [...] unit CpDR daily with Bran ch meals. CRE2018 Yes Take by Univers 36,000-114, 7-11 mouth 3 ity o f 000- 00:00: (three) [place] 180,000 00 times Medical unit CpDR daily with Bran ch meals. CREON 2020- No Take by Univers 36,000-114, 7-11 04-05 mouth 3 ity of 000- 00:00: 00:00 (three) [place] 180,000 00 :00 times Medical unit CpDR daily with Bran ch meals. CREON 2020- No Take by Univers 36,000-114, 7-11 04-05 mouth 3 ity of 000- 00:00: 00:00 (three) [place] 180,000 00 :00 times Medical unit CpDR daily with Bran ch meals. dicyclomine 2018- No [id number] 20mg Take 1 Univers (BENTYL) 20 5-28 08-03 tablet by it y of mg tablet 00:00: 00:00 mouth 4 [place] :[place] (four) Medical times Branch daily as needed for Abdominal pain. ondansetron 2018- No [id number] 4mg Take 1 Univers (ZOFRAN) 4 5-28 08-03 tablet by ity of mg tablet 00:00: 00:00 mouth [place] 00 :00 every 8 Medical (eight) Branch hours as needed for Nausea and Vomiting (N/V). amLODIPine 2018- No [id number] 5mg Take 2 Univers 2.5 mg 07-21- tablets by ity of tablet 00:00: 00:00 mouth at [place] 00 :00 bedtime. Medical Branch proMETHazin 2018- No [id number] 25mg Take 1 Univers e 25 mg 07-21- tablet by ity of tablet 00:00: 00:00 mouth [place] 00 :00 every 6 Medical (six) Branch hours as needed for Nausea and Vomiting (N/V). famotidine 2017-04- No 20mg Take 1 Univ ers (PEPCID) 20 05-22 tablet by it y of mg tablet [...] 1 tablet Common Potassium Potassium Spiri t [facility] Lexapro Lexapro Yes [place] 1 tablet Co mmon [facility] Seroquel XR Seroquel XR Yes [place] 1 tablet Common in the [facility] evening [facility] Phenergan Phenergan Yes [place] one tablet Common [facility] Doxycycline Doxycycline Yes [place] 1 capsule Common Hyclate Hyclate [facility] Azithromyci Azithromyci Yes [place] 2 tablets Common n n on the Spirit first day, - [facility] [address] [facility] daily for Medical 4 days Center Robaxin-750 Robaxin-750 Yes [place] 1 tablet Common [facility] Flonase Flonase Yes [place] 2 spray in Common each [facility] nostril - [facility] Diazepam Diazepam Yes [place] 1 tablet Common as needed [facility] PredniSONE PredniSONE Yes [place] 2 tablet Common daily x 5 Spirit days then - [facility] one tablet [facility] daily x 5 [facility] Gabapentin Gabapentin Yes [place] 1 capsule Common [facility] Losartan Losartan Yes [place] TAKE 1 Co mmon Potassium Potassium TABLET BY [facility] MOUTH - [facility] EVERY DAY [facility] Losartan Losartan No 1{table QD Losartan Potassium [...] Immunizations Ordered Filled Immunization Date Status Comments [facility] e Immunization Name Name Flucelvax - Flucelvax - 2021-04-03 Completed Common Spiri t - multidose vial multidose vial 10:16:00 [facility] Flucelvax - Flucelvax - 2021-04-03 Completed Common Spiri t - multidose vial multidose vial 10:16:00 [facility] Flucelvax - Flucelvax - 2021-04-03 Completed Common Spiri t - multidose vial multidose vial 10:16:00 [facility] Flucelvax - Flucelvax - 2021-04-03 Completed Common Spiri t - multidose vial multidose vial 10:16:00 [facility] Flucelvax - Flucelvax - 2021-04-03 Completed Common Spiri t - multidose vial multidose vial 10:16:00 [facility] Flucelvax - Flucelvax - 2021-04-03 Completed Common Spiri t - multidose vial multidose vial 10:16:00 [facility] Flucelvax - Flucelvax - 2021-04-03 Completed Common Spiri t - multidose vial multidose vial 10:16:00 [facility] Flucelvax - Flucelvax - 2021-04-03 Completed Common Spiri t - multidose vial multidose vial 10:16:00 [facility] Flucelvax - Flucelvax - 2021-04-03 Completed Common Spiri t - multidose vial multidose vial 10:16:00 [facility] Flucelvax - Flucelvax - 2021-04-03 Completed Common Spiri t - multidose vial multidose vial 10:16:00 [facility] Flucelvax - Flucelvax - 2021-04-03 Completed Common Spiri t - multidose vial multidose vial 10:16:00 [facility] Flucelvax - Flucelvax - 2021-04-03 Completed Common Spiri t - multidose vial multidose vial 10:16:00 [facility] Flucelvax - Flucelvax - 2021-04-03 Completed Common Spiri t - multidose vial multidose vial 10:16:00 [facility] Flucelvax - Flucelvax - 2021-04-03 Completed Common Spiri t - multidose vial multidose vial 10:16:00 [facility] Flucelvax - Flucelvax - 2021-04-03 Completed Common Spiri t - multidose vial multidose vial 10:16:00 [facility] Flucelvax - Flucelvax - 2021-04-03 Completed Common Spiri t - multidose vial multidose vial 10:16:00 [facility] Flucelvax - Flucelvax - 2021-04-03 Completed Common Spiri t - multidose vial multidose vial 10:16:00 [facility] Flucelvax - Flucelvax - 2021-04-03 Completed Common Spiri t - multidose vial multidose vial 10:16:00 [facility] Flucelvax - Flucelvax - 2021-04-03 Completed Common Spiri t - multidose vial multidose vial 10:16:00 [facility] Flucelvax - Flucelvax - 2021-04-03 Completed Common Spiri t - multidose vial multidose vial 10:16:00 [facility] Flucelvax - Flucelvax - 2021-04-03 Completed Common Spiri t - multidose vial multidose vial 10:16:00 [facility] Flucelvax - Flucelvax - 2021-04-03 Completed Common Spiri t - multidose vial multidose vial 10:16:00 [facility] Flucelvax - Flucelvax - 2021-04-03 Completed Common Spiri t - multidose vial multidose vial 10:16:00 [facility] Flucelvax - Flucelvax - 2021-04-03 Completed Common Spiri t - multidose vial multidose vial 10:16:00 [facility] Flucelvax - Flucelvax - 2021-04-03 Completed Common Spiri t - multidose vial multidose vial 10:16:00 [facility] Flucelvax - Flucelvax - 2021-04-03 Completed Common Spiri t - multidose vial multidose vial 10:16:00 [facility] Flucelvax - Flucelvax - 2021-04-03 Completed Common Spiri t - multidose vial multidose vial 10:16:00 [facility] Flucelvax - Flucelvax - 2021-04-03 Completed Common Spiri t - multidose vial multidose vial 10:16:00 [facility] Flucelvax - Flucelvax - 2021-04-03 Completed Common Spiri t - multidose vial multidose vial 10:16:00 [facility] Flucelvax - Flucelvax - 2021-04-03 Completed Common Spiri t - multidose vial multidose vial 10:16:00 [facility] Flu Injectable MDCK 2021-04-03 Completed Unive rsity of Quadrivalent 00:00:00 [place] Medica l Branch Flu Injectable MDCK 2021-04-03 Completed Unive rsity of Quadrivalent 00:00:00 [place] Medica l Branch Flu Injectable MDCK 2021-04-03 Completed Unive rsity of Quadrivalent 00:00:00 [place] [facility] l Branch Flu Injectable MDCK 2021-04-03 Completed Unive rsity of Quadrivalent 00:00:00 [place] Medica l Branch Flu Injectable MDCK 2021-04-03 Completed Unive rsity of Quadrivalent 00:00:00 [place] Medica l Branch SARS-COV-2 COVID-19 2021-03-25 Completed [...] Unive rsity of MODERNA VACCINE 00:00:00 [place] [facility] ical Branch SARS-COV-2 COVID-19 2020-07-19 Completed Unive [...] Unive rsity of MODERNA VACCINE 00:00:00 [place] [facility] ical Branch SARS-COV-2 COVID-19 2020-05-22 Completed Unive rsity of MODERNA VACCINE 00:00:00 [place] [facility] ical Branch SARS-COV-2 COVID-19 2020-05-22 Completed Unive rsity of MODERNA VACCINE 00:00:00 [place] Med ical Branch SARS-COV-2 COVID-19 2020-05-22 Completed Unive rsity of MODERNA VACCINE 00:00:00 [place] [facility] ical Branch SARS-COV-2 COVID-19 2020-05-22 Completed Unive rsity of MODERNA VACCINE 00:00:00 [place] [facility] ical Branch SARS-COV-2 COVID-19 2020-05-22 Completed Unive rsity of MODERNA VACCINE 00:00:00 [place] [facility] ical Branch SARS-COV-2 COVID-19 2020-05-22 Completed Unive rsity of MODERNA VACCINE 00:00:00 [place] Med ical Branch SARS-COV-2 COVID-19 2020-05-22 Completed Unive rsity of MODERNA VACCINE 00:00:00 [place] [facility] ical Branch SARS-COV-2 COVID-19 2020-05-22 Completed Unive rsity of MODERNA VACCINE 00:00:00 [place] [facility] ical Branch SARS-COV-2 COVID-19 2020-05-22 Completed Unive rsity of MODERNA VACCINE 00:00:00 [place] [facility] ical Branch SARS-COV-2 COVID-19 2020-05-22 Completed Unive [...] rsity of MODERNA 12+ YRS 00:00:00 [place] [facility] ical VACCINE Branch SARS-COV-2 COVID-19 2020-05-22 Completed Unive rsity of MODERNA 12+ YRS 00:00:00 [place] Med ical VACCINE Branch SARS-COV-2 COVID-19 2020-05-22 Completed Unive rsity of MODERNA 12+ YRS 00:00:00 [place] [facility] ical VACCINE Branch SARS-COV-2 COVID-19 2020-05-22 Completed Unive rsity of MODERNA 12+ YRS 00:00:00 [facility] ical VACCINE Branch SARS-COV-2 COVID-19 2020-05-22 Completed Unive rsity of MODERNA 12+ YRS 00:00:00 [facility] ical VACCINE Branch SARS-COV-2 COVID-19 2020-05-22 Completed Unive rsity of MODERNA 12+ YRS 00:00:00 [facility] ical VACCINE Branch SARS-COV-2 COVID-19 2020-05-22 Completed Unive rsity of MODERNA 12+ YRS 00:00:00 [facility] ical VACCINE Branch SARS-COV-2 COVID-19 2020-05-22 Completed Unive rsity of MODERNA 12+ YRS 00:00:00 [facility] ical VACCINE Branch Influenza TIV (IM) 2013-02-[address] [facility] 00:00:00 [facility] Influenza TIV (IM) 2013-02-[address] [facility] 00:00:00 [facility] Influenza TIV (IM) 2013-02-[address] [facility] 00:00[facility]00 [facility] Influenza TIV (IM) 2013-02-[address] [facility] 00:00:00 [facility] Influenza TIV (IM) 2013-02-[address] [facility] 00:00:00 [facility] Influenza TIV (IM) 2013-02-[address] [facility] 00:00:00 [facility] Influenza TIV (IM) 2013-02-27 Completed [facility] Influenza TIV (IM) 2013-02-[address] [facility] Influenza TIV (IM) 2013-02-[address] [facility] 00:00:00 [facility] Influenza TIV (IM) 2013-02-[address] [facility] 00:00:00 [facility] Influenza Virus 2013-02-27 Completed [facility] Vaccine 00:00:00 [facility] Influenza Virus 2013-02-27 Completed [facility] Vaccine 00:00:00 [facility] Influenza Virus 2013-02-27 Completed [facility] Vaccine 00:00:00 [facility] Influenza Virus 2013-02-27 Completed [facility] y of Vaccine 00:00:00 [facility] Influenza Virus 2013-02-27 Completed [facility] Vaccine 00:00:00 [facility] Influenza Virus 2013-02-27 Completed [facility] Vaccine 00:00:00 [facility] Influenza Virus 2013-02-27 Completed [facility] of Vaccine 00:00:00 [facility] Influenza Virus 2013-02-27 Completed [facility] y of Vaccine 00:00:00 [facility] Influenza Virus 2013-02-27 Completed [facility] Vaccine 00:00:00 [facility] Influenza Virus 2013-02-27 Completed [facility] y of Vaccine 00:00:00 [facility] Influenza Virus 2013-02-27 Completed [facility] of Vaccine 00:00:00 [facility] Influenza Virus 2013-02-27 Completed [facility] y of Vaccine 00:00:00 [facility] Influenza Virus 2013-02-27 Completed [facility] Vaccine 00:00:00 [facility] Influenza Virus 2013-02-27 Completed [facility] of Vaccine 00:00:00 [facility] Influenza Virus 2013-02-27 Completed [facility] of Vaccine 00:00:00 [facility] Influenza Virus 2013-02-27 Completed [facility] of Vaccine 00:00:00 [facility] Influenza Virus 2013-02-27 Completed [facility] of Vaccine 00:00:00 [facility] Influenza Virus 2013-02-27 Completed [facility] of Vaccine 00:00:00 [facility] Influenza Virus 2013-02-27 Completed [facility] of Vaccine 00:00:00 [facility] Influenza Virus 2013-02-27 Completed [facility] of Vaccine 00:00:00 [facility] Influenza Virus 2013-02-27 Completed [facility] of Vaccine 00:00:00 [facility] Influenza Virus 2013-02-27 Completed [facility] of Vaccine 00:00:00 [facility] Influenza Virus 2013-02-27 Completed [facility] y of Vaccine 00:00:00 [facility] Influenza Virus 2013-02-27 Completed [facility] y of Vaccine 00:00:00 [facility] Influenza Virus 2013-02-27 Completed [facility] y of Vaccine 00:00:00 [facility] Influenza Virus 2013-02-27 Completed [facility] y of Vaccine 00:00:00 [facility] Influenza Virus 2013-02-27 Completed [facility]it y of Vaccine 00:00:00 [facility] Influenza Virus 2013-02-27 Completed [facility] y of Vaccine 00:00:00 [facility] Influenza Virus 2013-02-27 Completed [facility] y of Vaccine 00:00:00 [facility] Influenza Virus 2013-02-27 Completed [facility] y of Vaccine 00:00:00 [facility] Influenza Virus 2013-02-27 Completed [facility] y of Vaccine 00:00:00 [facility] Influenza Virus 2013-02-27 Completed [facility] y of Vaccine 00:00:00 [facility] Influenza Virus 2013-02-27 Completed [facility] y of Vaccine 00:00:00 [facility] Influenza Virus 2013-02-27 Completed [facility]it y of Vaccine 00:00:00 [facility] Influenza Virus 2013-02-27 Completed [facility]it y of Vaccine 00:00:00 [facility] Influenza Virus 2013-02-27 Completed [facility] y of Vaccine 00:00:00 [facility] Influenza Virus 2013-02-27 Completed [facility]it y of Vaccine 00:00:00 [facility] Influenza Virus 2013-02-27 Completed [facility] y of Vaccine 00:00:00 [facility] Influenza Virus 2013-02-27 Completed [facility]it y of Vaccine 00:00:00 [facility] Influenza Virus 2013-02-27 Completed [facility] y of Vaccine 00:00:00 [facility] Influenza Virus 2013-02-27 Completed [facility]it y of Vaccine 00:00:00 [facility] Influenza Virus 2013-02-27 Completed [facility] y of Vaccine 00:00:00 [facility] Influenza Virus 2013-02-27 Completed [facility] y of Vaccine 00:00:00 [facility] Influenza Virus 2013-02-27 Completed [facility]it y of Vaccine 00:00:00 [facility] Influenza Virus 2013-02-27 Completed [facility] y of Vaccine 00:00:00 [facility] Influenza Virus 2013-02-27 Completed [facility] y of Vaccine 00:00:00 [facility] Influenza Virus 2013-02-27 Completed [facility] y of Vaccine 00:00:00 [facility] Influenza Virus 2013-02-27 Completed [facility] of Vaccine 00:00:00 [facility] Influenza Virus 2013-02-27 Completed [facility]it y of Vaccine 00:00:00 [facility] Influenza Virus 2013-02-27 Completed [facility]it y of Vaccine 00:00:00 [facility] Influenza Virus 2013-02-27 Completed [facility] y of Vaccine 00:00:00 [facility] Influenza Virus 2013-02-27 Completed [facility] y of Vaccine 00:00:00 [facility] Influenza Virus 2013-02-27 Completed [facility] y of Vaccine 00:00:00 [facility] Influenza Virus 2013-02-27 Completed [facility] y of Vaccine 00:00:00 [facility] Influenza Virus 2013-02-27 Completed [facility]it y of Vaccine 00:00:00 [facility] Influenza Virus 2013-02-27 Completed [facility]it y of Vaccine 00:00:00 [facility] Influenza Virus 2013-02-27 Completed [facility]it y of Vaccine 00:00:00 [facility] Influenza Virus 2013-02-27 Completed [facility]it y of Vaccine 00:00:00 [facility] Influenza Virus 2013-02-27 Completed [facility]it y of Vaccine 00:00:00 [facility] Influenza Virus 2013-02-27 Completed [facility]it y of Vaccine 00:00:00 [facility] Influenza Virus 2013-02-27 Completed [facility]it y of Vaccine 00:00:00 [facility] Influenza Virus 2013-02-27 Completed [facility]it y of Vaccine 00:00:00 [facility] Influenza Virus 2013-02-27 Completed [facility]it y of Vaccine 00:00:00 [facility] Influenza Virus 2013-02-27 Completed [facility]it y of Vaccine 00:00:00 [facility] Influenza Virus 2013-02-27 Completed [facility] y of Vaccine 00:00:00 [facility] Influenza Virus 2013-02-27 Completed [facility]it y of Vaccine 00:00:00 [facility] Influenza Virus 2013-02-27 Completed [facility]it y of Vaccine 00:00:00 [facility] Influenza Virus 2013-02-27 Completed [facility]it y of Vaccine 00:00:00 [facility] Influenza Virus 2013-02-27 Completed [facility]it y of Vaccine 00:00:00 [facility] Influenza Virus 2013-02-27 Completed [facility]it y of Vaccine 00:00:00 [facility] Influenza Virus 2013-02-27 Completed [facility]it y of Vaccine 00:00:00 [facility] Influenza Virus 2013-02-27 Completed [facility]it y of Vaccine 00:00:00 [facility] Influenza Virus 2013-02-27 Completed [facility]it y of Vaccine 00:00:00 [facility] Influenza Virus 2013-02-27 Completed [facility]it y of Vaccine 00:00:00 [facility] Influenza Virus 2013-02-27 Completed [facility]it y of Vaccine 00:00:00 [facility] Influenza Virus 2013-02-27 Completed [facility] y of Vaccine 00:00:00 [facility] Influenza TIV (IM) 2013-02-[address] [facility] Vital Signs Vital Name Observation Time Observation Value Comments Source WEIGHT 2020-09-05 85.548 kg 19:05:00 WEIGHT 2020-08-28 83.9 kg 04:41:00 WEIGHT 2020-08-27 84.959 kg 05:27:00 WEIGHT 2020-08-26 85.821 kg 02:50:00 HEIGHT 2020-08-26 152.4 cm 02:50:00 Systolic blood 2022-07-31 103 mm[Hg] University of pressure 20:07:00 [facility] Diastolic blood 2022-07-31 73 mm[Hg] University o f pressure 20:07:00 [facility] Heart rate 2022-07-31 60 /min [facility] 20:07:00 [facility] Body temperature 2022-07-31 36.22 Roro [facility] 20:07:00 [facility] Respiratory rate 2022-07-31 14 /min [facility] 20:07:00 [facility] Oxygen saturation 2022-07-31 99 /min [facility] in Arterial blood 20:07:00 [facility] Pulse oximetry Platter Body weight 2022-07-31 56.473 kg University of 14:00:00 [facility] BMI 2022-07-31 24.31 kg/m2 University 14:00:00 [facility] Body height 2022-07-31 152.4 cm [facility] 03:13:00 [facility] Systolic blood 2022-04-26 144 mm[Hg] University of pressure 18:08:00 [facility] Diastolic blood 2022-04-26 97 mm[Hg] University o f pressure 18:08:00 [facility] Heart rate 2022-04-26 66 /min University of 18:08:00 [facility] Body temperature 2022-04-26 35.78 Roro University of 18:08:00 [facility] Respiratory rate 2022-04-26 18 /min University of 18:08:00 [facility] Oxygen saturation 2022-04-26 99 /min University of in Arterial blood 18:08:00 [facility] by Pulse oximetry Branch Body weight 2022-04-26 66.361 kg University of 09:30:00 [facility] BMI 2022-04-26 28.57 kg/m2 University of 09:30:00 [facility] Body height 2022-04-26 152.4 cm University of 03:57:00 [facility] Systolic blood 2022-04-08 120 mm[Hg] University of pressure 19:03:00 [facility] Diastolic blood 2022-04-08 80 mm[Hg] University o f pressure 19:03:00 [facility] Heart rate 2022-04-08 90 /min University of 19:03:00 [facility] Body temperature 2022-04-08 36.89 Roro University of 19:03:00 [facility] Respiratory rate 2022-04-08 20 /min University of 19:03:00 [facility] Body height 2022-04-08 152.4 cm University of 19:03:00 [facility] Body weight 2022-04-08 72.576 kg University of 19:03:00 [facility] BMI 2022-04-08 31.25 kg/m2 University of 19:03:00 [facility] Oxygen saturation 2022-04-08 100 /min [place] [facility] in Arterial blood 19:03:00 [facility] by Pulse oximetry Branch height 2022-02-22 60 [in_i] [facility] 14:00:00 [facility] weight 2022-02-22 151.6 [lb_av] [facility] - 14[facility]00:00 [facility] temperature 2022-02-22 97.2 [degF] [facility] - 14:00:00 [facility] bmi 2022-02-22 29.6 kg/m2 [facility] - 14:00:00 [facility] blood pressure 2022-02-22 132 mm[Hg] [facility] - systolic 14:00:00 [facility] blood pressure 2022-02-22 84 mm[Hg] [facility] - diastolic 14:00:00 [facility] Systolic blood 2022-02-06 147 mm[Hg] [facility] pressure 21:55:00 [facility] Diastolic blood 2022-02-06 102 mm[Hg] University o f pressure 21:55:00 [facility] Heart rate 2022-02-06 82 /min University of 21:55:00 [facility] Body temperature 2022-02-06 36.28 Roro University of 21:55:00 [facility] Respiratory rate 2022-02-06 18 /min University of 21:55:00 [facility] Oxygen saturation 2022-02-06 99 /min University of in Arterial blood 21:55:00 [facility] brandy by Pulse oximetry Branch Body weight 2022-02-06 75.479 kg University of 08:24:00 [facility] BMI 2022-02-06 32.50 kg/m2 University of 08:24:00 [facility] Body height 2022-02-03 152.4 cm University of 22:37:00 [facility] Systolic blood 2022-01-27 141 mm[Hg] University of pressure 00:37:00 [facility] Diastolic blood 2022-01-27 92 mm[Hg] University o f pressure 00:37:00 [facility] Heart rate 2022-01-27 73 /min University of 00:37:00 [facility] Respiratory rate 2022-01-27 16 /min University of 00:37:00 [facility] Oxygen saturation 2022-01-27 98 /min University of in Arterial blood 00:37:00 [facility] brandy by Pulse oximetry Branch Body weight 2022-01-26 72.122 kg University of 20:27:00 [facility] BMI 2022-01-26 31.05 kg/m2 University of 20:27:00 [facility] Body temperature 2022-01-26 37 Roro University of 20:26:00 [facility] Body height 2022-01-26 152.4 cm University of 20:26:00 [facility] Systolic blood 2021-11-02 159 mm[Hg] University of pressure 13:00:00 [facility] Diastolic blood 2021-11-02 98 mm[Hg] University o f pressure 13:00:00 [facility] Heart rate 2021-11-02 90 /min University of 13:00:00 [facility] Respiratory rate 2021-11-02 14 /min University of 13:00:00 [facility] Oxygen saturation 2021-11-02 97 /min University of in Arterial blood 13:00:00 [place] [facility] by Pulse oximetry Branch Body temperature 2021-11-02 37.06 Roro University of 09:49:00 [facility] Body height 2021-11-02 152.4 cm University of 09:49:00 [facility] Body weight 2021-11-02 77.111 kg University of 09:49:00 [facility] BMI 2021-11-02 33.20 kg/m2 University of 09:49:00 [facility] Heart rate 2021-09-29 63 /min University of 15:42:00 [facility] Respiratory rate 2021-09-29 18 /min University of 15:42:00 [facility] Oxygen saturation 2021-09-29 99 /min University of in Arterial blood 15:42:00 [facility] brandy by Pulse oximetry Branch Systolic blood 2021-09-29 124 mm[Hg] University of pressure 15:40:00 [facility] Diastolic blood 2021-09-29 85 mm[Hg] University o f pressure 15:40:00 [facility] Body temperature 2021-09-29 36.39 Roro University of 14:41:00 [facility] Body height 2021-09-20 152.4 cm University of 15:00:00 [facility] Body weight 2021-09-20 78.5 kg University of 15:00:00 [facility] BMI 2021-09-20 33.80 kg/m2 University of 15:00:00 [facility] Systolic blood 2021-09-29 138 mm[Hg] University of pressure 15:15:00 [facility] Diastolic blood 2021-09-29 80 mm[Hg] University o f pressure 15:15:00 [facility] Heart rate 2021-09-29 63 /min University of 15:15:00 [facility] Respiratory rate 2021-09-29 11 /min University of 15:15:00 [facility] Oxygen saturation 2021-09-29 99 /min University of in Arterial blood 15:15:00 [place] [facility] by Pulse oximetry Branch Body temperature 2021-09-29 36.39 Roro University of 14:41:00 [facility] Body height 2021-09-20 152.4 cm University 15:00:00 [facility] Body weight 2021-09-20 78.5 kg University of 15:00:00 [facility] BMI 2021-09-20 33.80 kg/m2 University of 15:00:00 [facility] Respiratory rate 2021-09-29 10 /min University 14:31:00 [facility] height 2021-09-21 62.00 [in_i] [facility] - 09:20:00 [facility] weight 2021-09-21 179 [lb_av] [facility] - 09:20:00 [facility] temperature 2021-09-21 97.4 [degF] [facility] - 09:20:00 [facility] bmi 2021-09-21 32.74 kg/m2 [facility] - 09:20:00 [facility] oximetry 2021-09-21 100 % [facility] - 09:20:00 [facility] respiratory rate 2021-09-21 15 /min [facility] - 09:20:00 [facility] blood pressure 2021-09-21 130 mm[Hg] [facility] - systolic 09:20:00 [facility] blood pressure 2021-09-21 82 mm[Hg] [facility] - diastolic 09:20:00 [facility] Systolic blood 2021-09-08 112 mm[Hg] [facility] pressure 21:35:00 [facility] Diastolic blood 2021-09-08 77 mm[Hg] University o f pressure 21:35:00 [facility] Heart rate 2021-09-08 64 /min University 21:35:00 [facility] Body temperature 2021-09-08 36.22 Roro University 21:35:00 [facility] Respiratory rate 2021-09-08 18 /min [facility] 21:35:00 [facility] Oxygen saturation 2021-09-08 100 /min [facility] Arterial blood 21:35:00 [facility] by Pulse oximetry Platter Body height 2021-09-02 152.4 cm [facility] 00:59:00 [facility] Body weight 2021-09-02 78.5 kg University 00:59:00 [facility] BMI 2021-09-02 33.80 kg/m2 University 00:59:00 [facility] Systolic blood 2021-08-27 169 mm[Hg] University of pressure 20:00:00 [facility] Diastolic blood 2021-08-27 103 mm[Hg] University o f pressure 20:00:00 [facility] Heart rate 2021-08-27 66 /min University 20:00:00 [facility] Respiratory rate 2021-08-27 11 /min University 20:00:00 [facility] Oxygen saturation 2021-08-27 98 /min [facility] Arterial blood 20:00:00 [facility] by Pulse oximetry Platter Body temperature 2021-08-27 36.17 Roro Simultaneous [facility] 15:50:00 filing. User may [place] [facility] not have seen Branch previous data. Body height 2021-08-27 152.4 cm [facility] 15:50:00 [facility] Body weight 2021-08-27 81.647 kg [facility] 15:50:00 [facility] BMI 2021-08-27 35.15 kg/m2 University 15:50:00 [facility] height 2021-08-07 62.00 [in_i] [facility] - 11:40:00 [facility] weight 2021-08-07 176.2 [lb_av] [facility] - 11:40:00 [facility] temperature 2021-08-07 98.0 [degF] [facility] - 11:40:00 [facility] bmi 2021-08-07 32.22 kg/m2 [facility] - 11:40:00 [facility] oximetry 2021-08-07 100 % [facility] - 11:40:00 [facility] respiratory rate 2021-08-07 18 /min [facility] - 11:40:00 [facility] blood pressure 2021-08-07 132 mm[Hg] [facility] - systolic 11:40:00 [facility] blood pressure 2021-08-07 82 mm[Hg] [facility] - diastolic 11:40:00 [facility] Systolic blood 2021-07-29 154 mm[Hg] [facility] pressure 16:16:00 [facility] Diastolic blood 2021-07-29 91 mm[Hg] University o f pressure 16:16:00 [facility] Heart rate 2021-07-29 92 /min University of 16:16:00 [facility] Body temperature 2021-07-29 36.44 Roro University of 16:16:00 [facility] Respiratory rate 2021-07-29 16 /min University of 16:16:00 [facility] Oxygen saturation 2021-07-29 98 /min University of in Arterial blood 16:16:00 [facility] by Pulse oximetry Branch Body weight 2021-07-28 86.63 kg University [facility] 18:00:00 [facility] [facility] BMI 2021-07-28 37.30 kg/m2 University of 18:00:00 [facility] Body height 2021-07-24 152.4 cm University of 00:00:00 [facility] Systolic blood 2021-07-04 141 mm[Hg] University of pressure 18:05:00 [facility] Diastolic blood 2021-07-04 95 mm[Hg] University o f pressure 18:05:00 [facility] Heart rate 2021-07-04 64 /min University of 18:05:00 [facility] Respiratory rate 2021-07-04 11 /min University of 18:05:00 [facility] Oxygen saturation 2021-07-04 96 /min University of in Arterial blood 18:05:00 [facility] by Pulse oximetry Platter Body temperature 2021-07-04 36.39 Roro University of 17:48:00 [facility] Body height 2021-07-03 152.4 cm University of 19:51:00 [facility] Body weight 2021-07-03 81.6 kg University of 19:51:00 [facility] BMI 2021-07-03 35.13 kg/m2 University of 19:51:00 [facility] Systolic blood 2021-07-04 141 mm[Hg] University of pressure 15:45:00 [facility] Diastolic blood 2021-07-04 97 mm[Hg] University o f pressure 15:45:00 [facility] Heart rate 2021-07-04 81 /min University of 15:45:00 [facility] Body temperature 2021-07-04 36.39 Roro University of 15:45:00 [facility] Respiratory rate 2021-07-04 20 /min University of 15:45:00 [facility] Oxygen saturation 2021-07-04 100 /min University of in Arterial blood 15:45:00 [facility] by Pulse oximetry Branch Body height 2021-07-03 152.4 cm University of 19:51:00 [facility] Body weight 2021-07-03 81.6 kg University of 19:51:00 [facility] BMI 2021-07-03 35.13 kg/m2 University of 19:51:00 [facility] height 2021-06-15 62.00 [in_i] [facility] - 08:40:00 [facility] weight 2021-06-15 189 [lb_av] [facility] - 08:40:00 [facility] temperature 2021-06-15 97.3 [degF] [facility] - 08:40:00 [facility] bmi 2021-06-15 34.56 kg/m2 [facility] - 08:40:00 [facility] oximetry 2021-06-15 98 % [facility] - 08:40:00 [facility] respiratory rate 2021-06-15 18 /min [facility] - 08:40:00 [facility] blood pressure 2021-06-15 148 mm[Hg] [facility] - systolic 08:40:00 [facility] blood pressure 2021-06-15 92 mm[Hg] [facility] - diastolic 08:40:00 [facility] Systolic blood 2021-06-04 164 mm[Hg] [facility] pressure 04:00:00 [facility] Diastolic blood 2021-06-04 104 mm[Hg] University o f pressure 04:00:00 [facility] Heart rate 2021-06-04 64 /min University 04:00:00 [facility] Oxygen saturation 2021-06-04 98 /min [facility] in Arterial blood 04:00:00 [facility] by Pulse oximetry Branch Respiratory rate 2021-06-04 11 /min University 03:00:00 [facility] Body temperature 2021-06-03 35.89 Roro University of 19:49:00 [facility] Body height 2021-06-03 152.4 cm University of 19:49:00 [facility] Body weight 2021-06-03 81.647 kg University of 19:49:00 [facility] BMI 2021-06-03 35.15 kg/m2 University of 19:49:00 [facility] Systolic blood 2021-05-22 151 mm[Hg] [facility] of pressure 07:00:00 [facility] Diastolic blood 2021-05-22 97 mm[Hg] University o f pressure 07:00:00 [facility] Heart rate 2021-05-22 93 /min University of 07:00:00 [facility] Oxygen saturation 2021-05-22 96 /min [facility] of in Arterial blood 07:00:00 [place] [facility] Pulse oximetry Branch Body temperature 2021-05-22 37.61 Roro University of 05:24:00 [facility] Respiratory rate 2021-05-22 20 /min University of 05:24:00 [facility] Body height 2021-05-22 152.4 cm University of 05:24:00 [facility] Body weight 2021-05-22 81.647 kg University of 05:24:00 [facility] BMI 2021-05-22 35.15 kg/m2 University of 05:24:00 [facility] Systolic blood 2021-05-18 139 mm[Hg] University of pressure 15:16:00 [facility] Diastolic blood 2021-05-18 86 mm[Hg] University o f pressure 15:16:00 [facility] Heart rate 2021-05-18 85 /min University of 15:16:00 [facility] Body temperature 2021-05-18 36.39 Roro University of 15:16:00 [facility] Respiratory rate 2021-05-18 18 /min University of 15:16:00 [facility] Body height 2021-05-18 152.4 cm University of 15:16:00 [facility] Body weight 2021-05-18 87.862 kg University of 15:16:00 [facility] BMI 2021-05-18 37.83 kg/m2 University of 15:16:00 [facility] Oxygen saturation 2021-05-18 97 /min [facility] of in Arterial blood 15:16:00 [place] [facility] by Pulse oximetry Branch Systolic blood 2021-04-15 163 mm[Hg] [facility] of pressure 19:38:00 [facility] Diastolic blood 2021-04-15 105 mm[Hg] University o f pressure 19:38:00 [facility] Heart rate 2021-04-15 98 /min University of 19:38:00 [facility] Body temperature 2021-04-15 37.06 Roro University of 19:38:00 [facility] Respiratory rate 2021-04-15 18 /min University of 19:38:00 [facility] Body height 2021-04-15 152.4 cm University of 19:38:00 [facility] Body weight 2021-04-15 81.647 kg University of 19:38:00 [facility] BMI 2021-04-15 35.15 kg/m2 University of 19:38:00 [facility] Oxygen saturation 2021-04-15 97 /min University of in Arterial blood 19:38:00 [facility] by Pulse oximetry Branch Systolic blood 2021-04-15 140 mm[Hg] [facility] of pressure 19:20:00 [facility] Diastolic blood 2021-04-15 98 mm[Hg] University o f pressure 19:20:00 [facility] Heart rate 2021-04-15 109 /min University of 19:20:00 [facility] Body temperature 2021-04-15 36.94 Roro University of 19:20:00 [facility] Respiratory rate 2021-04-15 17 /min University of 19:20:00 [facility] Body weight 2021-04-15 84.596 kg University of 19:20:00 [facility] BMI 2021-04-15 36.42 kg/m2 University of 19:20:00 [facility] Oxygen saturation 2021-04-15 98 /min University of in Arterial blood 19:20:00 [facility] by Pulse oximetry Branch height 2021-04-03 62.00 [in_i] [facility] - 09:00:00 [facility] weight 2021-04-03 189 [lb_av] [facility] - 09:00:00 [facility] temperature 2021-04-03 97.2 [degF] [facility] - 09:00:00 [facility] bmi 2021-04-03 34.56 kg/m2 [facility] - 09:00:00 [facility] oximetry 2021-04-03 95 % [facility] - 09:00:00 [facility] blood pressure 2021-04-03 138 mm[Hg] [facility] - systolic 09:00:00 [facility] blood pressure 2021-04-03 48 mm[Hg] [facility] - diastolic 09:00:00 [facility] Systolic blood 2021-03-26 138 mm[Hg] [facility] pressure 03:00:00 [facility] Diastolic blood 2021-03-26 89 mm[Hg] University o f pressure 03:00:00 [facility] Heart rate 2021-03-26 75 /min University 03:00:00 [facility] Respiratory rate 2021-03-26 12 /min University of 03:00:00 [facility] Oxygen saturation 2021-03-26 99 /min University of in Arterial blood 03:00:00 [facility] by Pulse oximetry Branch Body temperature 2021-03-26 37 Roro [place] of 01:02:09 [facility] Body height 2021-03-26 152.4 cm [facility] 00:10:00 [facility] Body weight 2021-03-26 80.74 kg [facility] 00:10:00 [facility] BMI 2021-03-26 34.76 kg/m2 University of 00:10:00 [facility] Systolic blood 2021-03-21 173 mm[Hg] [facility] of pressure 01:28:00 [facility] Diastolic blood 2021-03-21 104 mm[Hg] University o f pressure 01:28:00 [facility] Heart rate 2021-03-21 74 /min [facility] 01:28:00 [facility] Respiratory rate 2021-03-21 22 /min University of 01:28:00 [facility] Oxygen saturation 2021-03-21 96 /min University of in Arterial blood 01:28:00 [facility] by Pulse oximetry Branch Body temperature 2021-03-20 37.17 Roro [place] of 21:59:00 [facility] Body weight 2021-03-20 81.647 kg University of 21:59:00 [facility] BMI 2021-03-20 35.15 kg/m2 University of 21:59:00 [facility] Systolic blood 2021-02-13 159 mm[Hg] [facility] of pressure 02:02:00 [facility] Diastolic blood 2021-02-13 95 mm[Hg] [facility] o f pressure 02:02:00 [facility] Body temperature 2021-02-13 36.67 Roro [facility] 02:02:00 [facility] Respiratory rate 2021-02-13 17 /min [facility] 02:02:00 [facility] Oxygen saturation 2021-02-13 93 /min University of in Arterial blood 02:02:00 [place] [facility] by Pulse oximetry Branch Heart rate 2021-02-13 73 /min University of 01:00:00 [facility] Body height 2021-02-12 152.4 cm University of 19:07:00 [facility] Body weight 2021-02-12 86.183 kg University of 19:07:00 [facility] BMI 2021-02-12 37.11 kg/m2 University of 19:07:00 [facility] Systolic blood 2021-01-18 155 mm[Hg] [facility] of pressure 05:45:00 [facility] Diastolic blood 2021-01-18 93 mm[Hg] University o f pressure 05:45:00 [facility] Heart rate 2021-01-18 86 /min University of 05:45:00 [facility] Respiratory rate 2021-01-18 14 /min University of 05:45:00 [facility] Oxygen saturation 2021-01-18 99 /min [place] of in Arterial blood 05:45:00 [facility] by Pulse oximetry Branch Body temperature 2021-01-18 37.06 Roro University of 02:32:00 [facility] Body height 2021-01-18 152.4 cm University of 02:32:00 [facility] Body weight 2021-01-18 86.183 kg University of 02:32:00 [facility] BMI 2021-01-18 37.11 kg/m2 University of 02:32:00 [facility] Systolic blood 2021-01-07 117 mm[Hg] [facility] of pressure 16:25:00 [facility] Diastolic blood 2021-01-07 79 mm[Hg] University o f pressure 16:25:00 [facility] Heart rate 2021-01-07 85 /min University of 16:25:00 [facility] Body temperature 2021-01-07 36.89 Roro University of 16:25:00 [facility] Respiratory rate 2021-01-07 16 /min University of 16:25:00 [facility] Body height 2021-01-07 152.4 cm University of 16:25:00 [facility] Body weight 2021-01-07 77.111 kg University of 16:25:00 [facility] BMI 2021-01-07 33.20 kg/m2 University of 16:25:00 [facility] Oxygen saturation 2021-01-07 96 /min [facility] of in Arterial blood 16:25:00 [place] [facility] by Pulse oximetry Branch Systolic blood 2020-12-30 148 mm[Hg] [facility] pressure 22:35:00 [facility] Diastolic blood 2020-12-30 107 mm[Hg] University o f pressure 22:35:00 [facility] Heart rate 2020-12-30 78 /min University of 22:35:00 [facility] Respiratory rate 2020-12-30 18 /min University of 22:35:00 [facility] Oxygen saturation 2020-12-30 97 /min University of in Arterial blood 22:35:00 [facility] by Pulse oximetry Branch Body temperature 2020-12-30 37.44 Roro University of 18:12:00 [facility] Body height 2020-12-30 152.4 cm University of 18:12:00 [facility] Body weight 2020-12-30 77.111 kg University of 18:12:00 [facility] BMI 2020-12-30 33.20 kg/m2 University of 18:12:00 [facility] Systolic blood 2020-12-30 122 mm[Hg] [facility] of pressure 15:13:00 [facility] Diastolic blood 2020-12-30 87 mm[Hg] University o f pressure 15:13:00 [facility] Heart rate 2020-12-30 83 /min University of 15:13:00 [facility] Body temperature 2020-12-30 36.83 Roro University of 15:13:00 [facility] Respiratory rate 2020-12-30 18 /min University of 15:13:00 [facility] Body height 2020-12-30 152.4 cm University of 15:13:00 [facility] Body weight 2020-12-30 83.553 kg University of 15:13:00 [facility] BMI 2020-12-30 35.97 kg/m2 University of 15:13:00 [facility] Systolic blood 2020-12-16 123 mm[Hg] [facility] of pressure 15:21:00 [facility] Diastolic blood 2020-12-16 90 mm[Hg] University o f pressure 15:21:00 [facility] Heart rate 2020-12-16 81 /min University of 15:21:00 [facility] Body temperature 2020-12-16 36.83 Roro University of 15:21:00 [facility] Respiratory rate 2020-12-16 18 /min University of 15:21:00 [facility] Body height 2020-12-16 152.4 cm University of 15:21:00 [facility] Body weight 2020-12-16 83.915 kg University of 15:21:00 [facility] BMI 2020-12-16 36.13 kg/m2 University of 15:21:00 [facility] Systolic blood 2020-12-16 123 mm[Hg] [facility] of pressure 15:21:00 [facility] Diastolic blood 2020-12-16 90 mm[Hg] University o f pressure 15:21:00 [facility] Heart rate 2020-12-16 81 /min University of 15:21:00 [facility] Body temperature 2020-12-16 36.83 Roro University of 15:21:00 [facility] Respiratory rate 2020-12-16 18 /min University of 15:21:00 [facility] Body height 2020-12-16 152.4 cm University of 15:21:00 [facility] Body weight 2020-12-16 83.915 kg University of 15::00 [facility] BMI 2020-12-16 36.13 kg/m2 University of 15:21:00 [facility] Systolic blood 2020-12-05 167 mm[Hg] University of pressure 22:45:00 [facility] Diastolic blood 2020-12-05 101 mm[Hg] University o f pressure 22:45:00 [facility] Heart rate 2020-12-05 76 /min University of 22:45:00 [facility] Respiratory rate 2020-12-05 20 /min University of 22:45:00 [facility] Oxygen saturation 2020-12-05 97 /min [facility] Arterial blood 22:45:00 [facility] by Pulse oximetry Platter Body temperature 2020-12-05 37.11 Roro University of 19:05:00 [facility] Body weight 2020-12-05 77.111 kg University of 19:05:00 [facility] BMI 2020-12-05 33.20 kg/m2 University of 19:05:00 [facility] Systolic blood 2020-10-12 111 mm[Hg] University of pressure 20:04:00 [facility] Diastolic blood 2020-10-12 77 mm[Hg] University o f pressure 20:04:00 [facility] Heart rate 2020-10-12 74 /min University of 20:04:00 [facility] Body temperature 2020-10-12 36.06 Roro University of 20:04:00 [facility] Respiratory rate 2020-10-12 18 /min University of 20:04:00 [facility] Oxygen saturation 2020-10-12 97 /min University of in Arterial blood 20:04:00 [facility] by Pulse oximetry Branch Body height 2020-10-12 152.4 cm University of 02:36:00 [facility] Body weight 2020-10-12 84.46 kg University of 02:36:00 [facility] BMI 2020-10-12 36.36 kg/m2 University of 02:36:00 [facility] Systolic blood 2020-10-12 111 mm[Hg] [facility] of pressure 20:04:00 [facility] Diastolic blood 2020-10-12 77 mm[Hg] University o f pressure 20:04: [facility] Heart rate 2020-10-12 74 /min University of 20:04:00 [facility] Body temperature 2020-10-12 36.06 Roro University of 20:04:00 [facility] Respiratory rate 2020-10-12 18 /min University of 20:04:00 [facility] Oxygen saturation 2020-10-12 97 /min University of in Arterial blood 20:04:00 [facility] by Pulse oximetry Branch Body height 2020-10-12 152.4 cm University of 02:36:00 [facility] Body weight 2020-10-12 84.46 kg University of 02:36:00 [facility] BMI 2020-10-12 36.36 kg/m2 University of 02:36:00 [facility] Systolic blood 2020-10-05 129 mm[Hg] [facility] of pressure 01:00:00 [facility] Diastolic blood 2020-10-05 88 mm[Hg] University o f pressure 01:00:00 [facility] Heart rate 2020-10-05 72 /min University of 01:00:00 [facility] Respiratory rate 2020-10-05 18 /min [facility] of 01:00:00 [facility] Oxygen saturation 2020-10-05 95 /min University of in Arterial blood 01:00:00 [facility] by Pulse oximetry Branch Body temperature 2020-10-04 37.72 Roro University of 22:44:00 [facility] Body weight 2020-10-04 77.111 kg University of 22:44:00 [facility] BMI 2020-10-04 33.20 kg/m2 University of 22:44:00 [facility] Systolic blood 2020-10-05 129 mm[Hg] [facility] of pressure 01:00:00 [facility] Diastolic blood 2020-10-05 88 mm[Hg] University o f pressure 01:00:00 [facility] Heart rate 2020-10-05 72 /min University of 01:00:00 [facility] Respiratory rate 2020-10-05 18 /min University of 01:00:00 [facility] Oxygen saturation 2020-10-05 95 /min [facility] in Arterial blood 01:00:00 [facility] by Pulse oximetry Branch Body temperature 2020-10-04 37.72 Roro University of 22:44:00 [facility] Body weight 2020-10-04 77.111 kg University of 22:44:00 [facility] BMI 2020-10-04 33.20 kg/m2 University of 22:44:00 [facility] WEIGHT 2020-09-05 85.548 kg 19:05:00 WEIGHT 2020-08-28 83.9 kg 04:41:00 WEIGHT 2020-08-27 84.959 kg 05:27:00 WEIGHT 2020-08-26 85.821 kg 02:50:00 HEIGHT 2020-08-26 152.4 cm 02:50:00 Systolic blood 2020-08-05 157 mm[Hg] [facility] of pressure 13:12:00 [facility] Diastolic blood 2020-08-05 128 mm[Hg] University o f pressure 13:12:00 [facility] Heart rate 2020-08-05 95 /min University of 13:12:00 [facility] Body temperature 2020-08-05 36.67 [facility] 13:12:00 [facility] Respiratory rate 2020-08-05 18 /min [facility] 13:12:00 [facility] Body weight 2020-08-05 77.111 kg [facility] of 13:12:00 [facility] BMI 2020-08-05 33.20 kg/m2 [facility] 13:12:00 [facility] Oxygen saturation 2020-08-05 98 /min [facility] of in Arterial blood 13:12:00 [facility] brandy by Pulse oximetry Branch Systolic blood 2020-08-05 157 mm[Hg] [facility] pressure 13:12:00 [facility] Diastolic blood 2020-08-05 128 mm[Hg] University o f pressure 13:12:00 [facility] Heart rate 2020-08-05 95 /min [facility] 13:12:00 [facility] Body temperature 2020-08-05 36.67 [facility] 13:12:00 [facility] Respiratory rate 2020-08-05 18 /min [facility] 13:12:00 [facility] Body weight 2020-08-05 77.111 kg [facility] of 13:12:00 [facility] BMI 2020-08-05 33.20 kg/m2 [facility] 13:12:00 [facility] Oxygen saturation 2020-08-05 98 /min [facility] of in Arterial blood 13:12:00 [facility] by Pulse oximetry Branch Systolic blood 2020-07-18 184 mm[Hg] [facility] pressure 13:22:00 [facility] Diastolic blood 2020-07-18 110 mm[Hg] [facility] o f pressure 13:22:00 [facility] Heart rate 2020-07-18 71 /min [facility] of 13:22:00 [facility] Respiratory rate 2020-07-18 18 /min [facility] 13:22:00 [facility] Oxygen saturation 2020-07-18 100 /min [facility] of in Arterial blood 13:22:00 [facility] by Pulse oximetry Branch Body temperature 2020-07-18 36.56 [facility] 12:49:00 [facility] Body height 2020-07-14 152.4 cm [facility] of 16:45:00 [facility] Body weight 2020-07-14 77.111 kg [facility] of 16:45:00 [facility] BMI 2020-07-14 33.20 kg/m2 [facility] 16:45:00 [facility] Systolic blood 2020-07-18 184 mm[Hg] [facility] pressure 13:22:00 [facility] Diastolic blood 2020-07-18 110 mm[Hg] [facility] o f pressure 13:22:00 [facility] Heart rate 2020-07-18 71 /min [facility] 13:22:00 [facility] Respiratory rate 2020-07-18 18 /min [facility] 13:22:00 [facility] Oxygen saturation 2020-07-18 100 /min [facility] in Arterial blood 13:22:00 [place] [facility] by Pulse oximetry Branch Body temperature 2020-07-18 36.56 [facility] 12:49:00 [facility] Body height 2020-07-14 152.4 cm [facility] of 16:45:00 [facility] Body weight 2020-07-14 77.111 kg [facility] of 16:45:00 [facility] BMI 2020-07-14 33.20 kg/m2 [facility] of 16:45:00 [facility] Systolic blood 2020-07-18 180 mm[Hg] [facility] of pressure 12:59:00 [facility] Diastolic blood 2020-07-18 88 mm[Hg] University o f pressure 12:59:00 [facility] Heart rate 2020-07-18 74 /min [facility] of 12:59:00 [facility] Respiratory rate 2020-07-18 17 /min [facility] of 12:59:00 [facility] Oxygen saturation 2020-07-18 100 /min [facility] of in Arterial blood 12:59:00 [facility] brandy by Pulse oximetry Branch Body temperature 2020-07-18 36.56 [facility] 12:49:00 [facility] Body height 2020-07-14 152.4 cm [facility] of 16:45:00 [facility] Body weight 2020-07-14 77.111 kg [facility] of 16:45:00 [facility] BMI 2020-07-14 33.20 kg/m2 [facility] of 16:45:00 [facility] Systolic blood 2020-07-18 180 mm[Hg] [facility] of pressure 12:59:00 [facility] Diastolic blood 2020-07-18 88 mm[Hg] University o f pressure 12:59:00 [facility] Heart rate 2020-07-18 74 /min [facility] of 12:59:00 [facility] Respiratory rate 2020-07-18 17 /min [facility] 12:59:00 [facility] Oxygen saturation 2020-07-18 100 /min [facility] of in Arterial blood 12:59:00 [place] [facility] by Pulse oximetry Branch Body temperature 2020-07-18 36.56 [facility] 12:49:00 [facility] Body height 2020-07-14 152.4 cm [facility] of 16:45:00 [facility] Body weight 2020-07-14 77.111 kg [facility] of 16:45:00 [facility] BMI 2020-07-14 33.20 kg/m2 [facility] of 16:45:00 [facility] Systolic blood 2020-07-08 187 mm[Hg] [facility] pressure 02:00:00 [facility] Diastolic blood 2020-07-08 102 mm[Hg] [facility] o f pressure 02:00:00 [facility] Heart rate 2020-07-08 84 /min [facility] of 02:00:00 [facility] Respiratory rate 2020-07-08 20 /min [facility] of 02:00:00 [facility] Oxygen saturation 2020-07-08 100 /min [facility] of in Arterial blood 02:00:00 [facility] brandy by Pulse oximetry Branch Body temperature 2020-07-07 37.22 [facility] 23:45:00 [facility] Body weight 2020-07-07 81.194 kg [facility] of 23:45:00 [facility] BMI 2020-07-07 34.96 kg/m2 [facility] of 23:45:00 [facility] Systolic blood 2020-07-08 187 mm[Hg] [facility] of pressure 02:00:00 [facility] Diastolic blood 2020-07-08 102 mm[Hg] University o f pressure 02:00:00 [facility] Heart rate 2020-07-08 84 /min [facility] of 02:00:00 [facility] Respiratory rate 2020-07-08 20 /min [facility] of 02:00:00 [facility] Oxygen saturation 2020-07-08 100 /min [facility] of in Arterial blood 02:00:00 [facility] brandy by Pulse oximetry Branch Body temperature 2020-07-07 37.22 [facility] 23:45:00 [facility] Body weight 2020-07-07 81.194 kg University of 23:45:00 [facility] BMI 2020-07-07 34.96 kg/m2 [facility] of 23:45:00 [facility] Systolic blood 2020-07-04 168 mm[Hg] [facility] of pressure 13:34:00 [facility] Diastolic blood 2020-07-04 94 mm[Hg] University o f pressure 13:34:00 [facility] Heart rate 2020-07-04 63 /min [facility] 13:34:00 [facility] Oxygen saturation 2020-07-04 100 /min [facility] in Arterial blood 13:34:00 [place] [facility] by Pulse oximetry [facility] Respiratory rate 2020-07-04 12 /min [facility] 13:23:00 [facility] Body temperature 2020-07-04 36.72 [facility] 13:03:00 [facility] Body height 2020-07-01 152.4 cm [facility] of 17:45:00 [facility] Body weight 2020-07-01 81.647 kg [facility] of 17:45:00 [facility] BMI 2020-07-01 35.15 kg/m2 [facility] of 17:45:00 [facility] Systolic blood 2020-07-04 168 mm[Hg] [facility] pressure 13:34:00 [facility] Diastolic blood 2020-07-04 94 mm[Hg] [facility] o f pressure 13:34:00 [facility] Heart rate 2020-07-04 63 /min [facility] 13:34:00 [facility] Oxygen saturation 2020-07-04 100 /min [facility] of in Arterial blood 13:34:00 [place] [facility] by Pulse oximetry Branch Respiratory rate 2020-07-04 12 /min [facility] 13:23:00 [facility] Body temperature 2020-07-04 36.72 [facility] 13:03:00 [facility] Body height 2020-07-01 152.4 cm [facility] of 17:45:00 [facility] Body weight 2020-07-01 81.647 kg [facility] of 17:45:00 [facility] BMI 2020-07-01 35.15 kg/m2 [facility] of 17:45:00 [facility] Systolic blood 2020-06-20 148 mm[Hg] [facility] pressure 14:33:00 [facility] Diastolic blood 2020-06-20 86 mm[Hg] University o f pressure 14:33:00 [facility] Heart rate 2020-06-20 70 /min [facility] 14:33:00 [facility] Respiratory rate 2020-06-20 11 /min [facility] 14:33:00 [facility] Oxygen saturation 2020-06-20 98 /min [facility] in Arterial blood 14:33:00 [place] [facility] by Pulse oximetry Branch Body temperature 2020-06-20 36.33 [facility] 14:18:00 [facility] Body height 2020-06-20 152.4 cm [facility] 12:30:00 [facility] Body weight 2020-06-20 81.647 kg [facility] of 12:30:00 [facility] BMI 2020-06-20 35.15 kg/m2 [facility] of 12:30:00 [facility] Systolic blood 2020-06-20 148 mm[Hg] [facility] of pressure 14:33:00 [facility] Diastolic blood 2020-06-20 86 mm[Hg] University o f pressure 14:33:00 [facility] Heart rate 2020-06-20 70 /min [facility] of 14:33:00 [facility] Respiratory rate 2020-06-20 11 /min [facility] of 14:33:00 [facility] Oxygen saturation 2020-06-20 98 /min [place] in Arterial blood 14:33:00 [facility] brandy by Pulse oximetry Branch Body temperature 2020-06-20 36.33 [facility] 14:18:00 [facility] Body height 2020-06-20 152.4 cm [facility] of 12:30:00 [facility] Body weight 2020-06-20 81.647 kg [facility] of 12:30:00 [facility] BMI 2020-06-20 35.15 kg/m2 [facility] of 12:30:00 [facility] Respiratory rate 2020-06-20 17 /min [facility] of 14:12:00 [facility] Respiratory rate 2020-06-20 17 /min [facility] of 14:12:00 [facility] Systolic blood 2020-05-07 122 mm[Hg] [facility] of pressure 00:05:00 [facility] Diastolic blood 2020-05-07 77 mm[Hg] University o f pressure 00:05:00 [facility] Heart rate 2020-05-07 61 /min [facility] of 00:05:00 [facility] Respiratory rate 2020-05-07 17 /min [facility] of 00:05:00 [facility] Oxygen saturation 2020-05-07 100 /min [facility] of in Arterial blood 00:05:00 [facility] brandy by Pulse oximetry Branch Body temperature 2020-05-06 37.06 [facility] 21:17:00 [facility] Body height 2020-05-06 152.4 cm [facility] of 21:17:00 [facility] Body weight 2020-05-06 77.111 kg University of 21:17:00 [facility] BMI 2020-05-06 33.20 kg/m2 [facility] of 21:17:00 [facility] Systolic blood 2020-05-07 122 mm[Hg] [facility] pressure 00:05:00 [facility] Diastolic blood 2020-05-07 77 mm[Hg] [facility] o f pressure 00:05:00 [facility] Heart rate 2020-05-07 61 /min [facility] 00:05:00 [facility] Respiratory rate 2020-05-07 17 /min [facility] 00:05:00 [facility] Oxygen saturation 2020-05-07 100 /min [facility] of in Arterial blood 00:05:00 [facility] brandy by Pulse oximetry Branch Body temperature 2020-05-06 37.06 [facility] 21:17:00 [facility] Body height 2020-05-06 152.4 cm [facility] of 21:17:00 [facility] Body weight 2020-05-06 77.111 kg [facility] of 21:17:00 [facility] BMI 2020-05-06 33.20 kg/m2 [facility] of 21:17:00 [facility] Systolic blood 2020-03-26 170 mm[Hg] [facility] of pressure 07:00:00 [facility] Diastolic blood 2020-03-26 110 mm[Hg] [facility] o f pressure 07:00:00 [facility] Heart rate 2020-03-26 77 /min [facility] of 07:00:00 [facility] Respiratory rate 2020-03-26 18 /min [facility] 07:00:00 [facility] Oxygen saturation 2020-03-26 96 /min [facility] of in Arterial blood 07:00:00 [facility] brandy by Pulse oximetry Branch Body temperature 2020-03-26 37.67 [facility] 03:07:00 [facility] Body height 2020-03-26 152.4 cm [facility] of 03:07:00 [facility] Body weight 2020-03-26 77.111 kg [facility] of 03:07:00 [facility] BMI 2020-03-26 33.20 kg/m2 [facility] 03:07:00 [facility] Systolic blood 2020-03-26 170 mm[Hg] [facility] pressure 07:00:00 [facility] Diastolic blood 2020-03-26 110 mm[Hg] [facility] o f pressure 07:00:00 [facility] Heart rate 2020-03-26 77 /min [facility] 07:00:00 [facility] Respiratory rate 2020-03-26 18 /min [facility] 07:00:00 [facility] Oxygen saturation 2020-03-26 96 /min [facility] of in Arterial blood 07:00:00 [facility] brandy by Pulse oximetry Branch Body temperature 2020-03-26 37.67 [facility] 03:07:00 [facility] Body height 2020-03-26 152.4 cm [facility] of 03:07:00 [facility] Body weight 2020-03-26 77.111 kg [facility] of 03:07:00 [facility] BMI 2020-03-26 33.20 kg/m2 [facility] of 03:07:00 [facility] Systolic blood 2020-02-08 134 mm[Hg] [facility] of pressure 20:21:00 [facility] Diastolic blood 2020-02-08 94 mm[Hg] [facility] o f pressure 20:21:00 [facility] Heart rate 2020-02-08 76 /min [facility] of 20:21:00 [facility] Body temperature 2020-02-08 36.11 [facility] 20:21:00 [facility] Respiratory rate 2020-02-08 17 /min [facility] of 20:21:00 [facility] Oxygen saturation 2020-02-08 100 /min [facility] of in Arterial blood 20:21:00 [facility] brandy by Pulse oximetry Branch Body weight 2020-02-03 80.468 kg [facility] of 08:16:00 [facility] BMI 2020-02-03 34.65 kg/m2 [facility] of 08:16:00 [facility] Systolic blood 2020-02-08 134 mm[Hg] [facility] of pressure 20:21:00 [facility] Diastolic blood 2020-02-08 94 mm[Hg] University o f pressure 20:21:00 [facility] Heart rate 2020-02-08 76 /min [facility] of 20:21:00 [facility] Body temperature 2020-02-08 36.11 [facility] 20:21:00 [facility] Respiratory rate 2020-02-08 17 /min [facility] of 20::00 [facility] Oxygen saturation 2020-02-08 100 /min [facility] of in Arterial blood 20:21:00 [facility] brandy by Pulse oximetry Branch Body weight 2020-02-03 80.468 kg [facility] of 08:16:00 [facility] BMI 2020-02-03 34.65 kg/m2 [facility] of 08:16:00 [facility] Systolic blood 2019-12-18 113 mm[Hg] [facility] of pressure 23:30:00 [facility] Diastolic blood 2019-12-18 76 mm[Hg] [facility] o f pressure 23:30:00 [facility] Heart rate 2019-12-18 57 /min [facility] 23:30:00 [facility] Respiratory rate 2019-12-18 18 /min [facility] of 23:30:00 [facility] Oxygen saturation 2019-12-18 99 /min [facility] of in Arterial blood 23:30:00 [facility] brandy by Pulse oximetry Branch Body temperature 2019-12-18 36.67 [facility] 20:24:00 [facility] Body height 2019-12-18 152.4 cm University of 20:24:00 [facility] Body weight 2019-12-18 77.111 kg University of 20:24:00 [facility] BMI 2019-12-18 33.20 kg/m2 [facility] of 20:24:00 [facility] Systolic blood 2019-12-18 113 mm[Hg] [facility] of pressure 23:30:00 [facility] Diastolic blood 2019-12-18 76 mm[Hg] [facility] o f pressure 23:30:00 [facility] Heart rate 2019-12-18 57 /min [facility] of 23:30:00 [facility] Respiratory rate 2019-12-18 18 /min University of :30:00 [facility] Oxygen saturation 2019-12-18 99 /min [facility] of in Arterial blood 23:30:00 [facility] by Pulse oximetry Branch Body temperature 2019-12-18 36.67 [facility] 20:24:00 [facility] Body height 2019-12-18 152.4 cm University of 20:24:00 [facility] Body weight 2019-12-18 77.111 kg University of 20:24:00 [facility] BMI 2019-12-18 33.20 kg/m2 University of 20:24:00 [facility] Systolic blood 2019-08-22 159 mm[Hg] [facility] of pressure 04:28:00 [facility] Diastolic blood 2019-08-22 99 mm[Hg] University o f pressure 04:28:00 [facility] Heart rate 2019-08-22 66 /min [facility] of 04:28:00 [facility] Respiratory rate 2019-08-22 18 /min [facility] of 04:28:00 [facility] Oxygen saturation 2019-08-22 95 /min [facility] in Arterial blood 04:28:00 [place] [facility] Pulse oximetry [facility] Body temperature 2019-08-22 36.61 [facility] 00:48:43 [facility] Body height 2019-08-22 152.4 cm [facility] of 00:44:00 [facility] Body weight 2019-08-22 86.183 kg University of 00:44:00 [facility] BMI 2019-08-22 37.11 kg/m2 [facility] of 00:44:00 [facility] Systolic blood 2019-08-22 159 mm[Hg] [facility] of pressure 04:28:00 [facility] Diastolic blood 2019-08-22 99 mm[Hg] University o f pressure 04:28:00 [facility] Heart rate 2019-08-22 66 /min [facility] of 04:28:00 [facility] Respiratory rate 2019-08-22 18 /min [facility] of 04:28:00 [facility] Oxygen saturation 2019-08-22 95 /min [facility] of in Arterial blood 04:28:00 [facility] by Pulse oximetry Branch Body temperature 2019-08-22 36.61 [facility] 00:48:43 [facility] Body height 2019-08-22 152.4 cm [facility] of 00:44:00 [facility] Body weight 2019-08-22 86.183 kg University of 00:44:00 [facility] BMI 2019-08-22 37.11 kg/m2 [facility] of 00:44:00 [facility] Heart rate 2019-06-26 93 /min [facility] of 00:53:00 [facility] Oxygen saturation 2019-06-26 94 /min [facility] of in Arterial blood 00:53:00 [facility] by Pulse oximetry Branch Systolic blood 2019-06-26 149 mm[Hg] [facility] of pressure 00:45:00 [facility] Diastolic blood 2019-06-26 106 mm[Hg] University o f pressure 00:45:00 [facility] Respiratory rate 2019-06-26 16 /min [facility] of 00:45:00 [facility] Body temperature 2019-06-25 37.17 [facility] 20:48:00 [facility] Body height 2019-06-25 152.4 cm University of 20:48:00 [facility] Body weight 2019-06-25 88.451 kg University of 20:48:00 [facility] BMI 2019-06-25 38.08 kg/m2 University of 20:48:00 [facility] Heart rate 2019-06-26 93 /min [facility] of 00:53:00 [facility] Oxygen saturation 2019-06-26 94 /min [facility] of in Arterial blood 00:53:00 [place] [facility] by Pulse oximetry Branch Systolic blood 2019-06-26 149 mm[Hg] [facility] of pressure 00:45:00 [facility] Diastolic blood 2019-06-26 106 mm[Hg] University o f pressure 00:45:00 [facility] Respiratory rate 2019-06-26 16 /min [facility] of 00:45:00 [facility] Body temperature 2019-06-25 37.17 [facility] 20:48:00 [facility] Body height 2019-06-25 152.4 cm University of 20:48:00 [facility] Body weight 2019-06-25 88.451 kg University of 20:48:00 [facility] BMI 2019-06-25 38.08 kg/m2 University of 20:48:00 [facility] Systolic blood 2019-06-20 157 mm[Hg] University of pressure 00:30:00 [facility] Diastolic blood 2019-06-20 89 mm[Hg] University o f pressure 00:30:00 [facility] Heart rate 2019-06-20 70 /min University of 00:30:00 [facility] Oxygen saturation 2019-06-20 97 /min University of in Arterial blood 00:30:00 [facility] brandy by Pulse oximetry Branch Respiratory rate 2019-06-20 14 /min University of 00:04:00 [facility] Body height 2019-06-19 152.4 cm University of 19:46:00 [facility] Body weight 2019-06-19 88.451 kg University of 19:46:00 [facility] BMI 2019-06-19 38.08 kg/m2 University of 19:46:00 [facility] Body temperature 2019-06-19 37.06 Roro University of 19:45:00 [facility] Systolic blood 2019-06-20 157 mm[Hg] University of pressure 00:30:00 [facility] Diastolic blood 2019-06-20 89 mm[Hg] University o f pressure 00:30:00 [facility] Heart rate 2019-06-20 70 /min University of 00:30:00 [facility] Oxygen saturation 2019-06-20 97 /min University of in Arterial blood 00:30:00 [place] [facility] by Pulse oximetry Branch Respiratory rate 2019-06-20 14 /min University of 00:04:00 [facility] Body height 2019-06-19 152.4 cm University of 19:46:00 [facility] Body weight 2019-06-19 88.451 kg University of 19:46:00 [facility] BMI 2019-06-19 38.08 kg/m2 University of 19:46:00 [facility] Body temperature 2019-06-19 37.06 Roro University of 19:45:00 [facility] Systolic blood 2019-05-20 141 mm[Hg] University of pressure 02:59:00 [facility] Diastolic blood 2019-05-20 97 mm[Hg] University o f pressure 02:59:00 [facility] Heart rate 2019-05-20 86 /min University of 02:59:00 [facility] Respiratory rate 2019-05-20 16 /min University of 02:59:00 [facility] Oxygen saturation 2019-05-20 94 /min University of in Arterial blood 02:59:00 [facility] by Pulse oximetry Platter Body temperature 2019-05-20 36.61 Roro University of 00:45:32 [facility] Body weight 2019-05-20 81.647 kg University of 00:16:00 [facility] BMI 2019-05-20 35.15 kg/m2 University of 00:16:00 [facility] Systolic blood 2019-05-20 141 mm[Hg] University of pressure 02:59:00 [facility] Diastolic blood 2019-05-20 97 mm[Hg] University o f pressure 02:59:00 [facility] Heart rate 2019-05-20 86 /min University of 02:59:00 [facility] Respiratory rate 2019-05-20 16 /min University of 02:59:00 [facility] Oxygen saturation 2019-05-20 94 /min University of in Arterial blood 02:59:00 [facility] by Pulse oximetry Platter Body temperature 2019-05-20 36.61 Roro University of 00:45:32 [facility] Body weight 2019-05-20 81.647 kg University of 00:16:00 [facility] BMI 2019-05-20 35.15 kg/m2 University of 00:16:00 [facility] Systolic blood 2018-12-18 134 mm[Hg] University of pressure 13:38:00 [facility] Diastolic blood 2018-12-18 96 mm[Hg] University o f pressure 13:38:00 [facility] Heart rate 2018-12-18 75 /min University of 13:38:00 [facility] Respiratory rate 2018-12-18 18 /min University of 13:38:00 [facility] Body height 2018-12-18 152.4 cm University of 13:38:00 [facility] Body weight 2018-12-18 88.451 kg University of 13:38:00 [facility] BMI 2018-12-18 38.08 kg/m2 University of 13:38:00 [facility] Systolic blood 2018-12-08 159 mm[Hg] University of pressure 20:03:00 [facility] Diastolic blood 2018-12-08 111 mm[Hg] University o f pressure 20:03:00 [facility] Body height 2018-12-08 152.4 cm University of 20:03:00 [facility] Body weight 2018-12-08 88.451 kg University of 20:03:00 [facility] BMI 2018-12-08 38.08 kg/m2 University of 20:03:00 [facility] Systolic blood 2018-12-05 180 mm[Hg] University of pressure 13:04:00 [facility] Diastolic blood 2018-12-05 110 mm[Hg] University o f pressure 13:04:00 [facility] Heart rate 2018-12-05 74 /min University of 13:04:00 [facility] Respiratory rate 2018-12-05 18 /min University of 12:57:00 [facility] Body height 2018-12-05 152.4 cm University of 12:57:00 [facility] Body weight 2018-12-05 88.451 kg University of 12:57:00 [facility] BMI 2018-12-05 38.08 kg/m2 University of 12:57:00 [facility] Systolic blood 2018-12-01 139 mm[Hg] University of pressure 23:03:00 [facility] Diastolic blood 2018-12-01 72 mm[Hg] University o f pressure 23:03:00 [facility] Heart rate 2018-12-01 64 /min University of 23:03:00 [facility] Respiratory rate 2018-12-01 13 /min University of 22:02:00 [facility] Body temperature 2018-12-01 36.33 Roro University of 19:27:00 [facility] Body height 2018-12-01 152.4 cm University of 19:27:00 [facility] Body weight 2018-12-01 88.451 kg University of 19:27:00 [facility] BMI 2018-12-01 38.08 kg/m2 University of 19:27:00 [facility] Oxygen saturation 2018-12-01 88 /min [facility] in Arterial blood 19:27:00 [facility] by Pulse oximetry Platter Systolic blood 2018-11-17 145 mm[Hg] reported to RN [facility] pressure 17:00:00 [facility] Diastolic blood 2018-11-17 80 mm[Hg] reported to RN [facility] pressure 17:00:00 [facility] Heart rate 2018-11-17 54 /min University of 17:00:00 [facility] Body temperature 2018-11-17 36.72 Roro University 17:00:00 [facility] Respiratory rate 2018-11-17 16 /min University of 17:00:00 [facility] Oxygen saturation 2018-11-17 95 /min [facility] in Arterial blood 17:00:00 [facility] by Pulse oximetry Platter Body height 2018-11-15 152.4 cm [facility] 22:07:00 [facility] Body weight 2018-11-15 88.587 kg University 21:18:00 [facility] BMI 2018-11-15 38.14 kg/m2 University 21:18:00 [facility] Procedures Procedure Date / Time Performing Source Performed Clinician LIPASE 2022-07-31 [facility] 09:45:00 [facility] BASIC METABOLIC PANEL (NA, K, CL, 2022-07-31 [facility] of CO2, GLUCOSE, BUN, CREATININE, CA) 09:45:00 [facility] CBC WITH DIFF 2022-07-31 [facility] of 09:45:00 [facility] URINALYSIS 2022-07-30 Mariana Ramirez [place] of 23:17:00 [facility] CT ABDOMEN PELVIS WO CONTRAST 2022-07-30 Mariana Ramirez Un iversity of 23:16:08 [facility] LIPASE 2022-07-30 Mariana Ramirez of 23:12:00 [facility] COMP. METABOLIC PANEL ([id number]) 2022-07-30 Mariana Ramirez Un iversity of 23:12:00 [facility] CBC WITH DIFF 2022-07-30 Mariana Ramirez of 23:12:00 [facility] PROTHROMBIN TIME / INR 2022-07-30 Mariana Ramirez Universit y of 23:12:00 [facility] ACTIVATED PARTIAL THRMPLAS KIMANI 2022-07-30 Mariana Ramirez U niversity of 23:12:00 [facility] CONSENT/REFUSAL FOR DIAGNOSIS AND 2022-07-30 Doctor Dung santiago, [facility] 21:55:41 Beacon [facility] MR ABDOMEN W WO CONTRAST MRCP 2022-04-26 Rigoberto Menendez Un iversity of 15:53:00 [facility] GAMMA GLUTAMYLTRANSFERASE 2022-04-[address] [facility] 10:54:00 [facility] THYROID STIMULATING HORMONE 2022-04-26 [facility] 10:54:00 [facility] PHOSPHORUS 2022-04-26 [facility] 10:53:00 [facility] CREATINE KINASE 2022-04-26 Juan Luis, [facility] of 10:53:00 [facility] MAGNESIUM 2022-04-26 Juan Luis, [facility] of 10:53:00 [facility] COMP. METABOLIC PANEL ([id number]) 2022-04-26 Rigoberto Menendez Un iversity of 10:53:00 [facility] LIPID PANEL ([id number])(TOTAL 2022-04-26 Rigoberto Menendez [facility] sity of CHOLESTEROL, TRIGLYCERIDES, HDL) 10:53:00 [facility] CBC WITH DIFF 2022-04-26 Rigoberto Menendez [place] of 10:53:00 [facility] N-TERMINAL PRO-BNP 2022-04-26 [facility] 10:53:00 [facility] CT ABDOMEN PELVIS W CONTRAST 2022-04-26 Jadyn Skaggs Uni versity of 00:12:00 [facility] LIPASE 2022-04-25 Jadyn Skaggs of 23:25:00 [facility] COMP. METABOLIC PANEL ([id number]) 2022-04-25 Jadyn Skaggs iversity of 23:25:00 [facility] CBC WITH DIFF 2022-04-25 Jadyn Skaggs of 23:25:00 [facility] GLYCOSYLATED HEMOGLOBIN (A1C) 2022-04-25 Rigoberto Menendez Un iversity of 23:25:00 [facility] URINALYSIS 2022-04-25 Jadyn Skaggs [place] of 23:25:00 [facility] CONSENT/REFUSAL FOR DIAGNOSIS AND 2022-04-25 Doctor Dung santiago, [facility] 22:43:11 Beacon [facility] XR HAND 3+ VW RIGHT 2022-04-08 Judy Weiss [facility] 19:48:55 Ignacia [facility] CONSENT/REFUSAL FOR DIAGNOSIS AND 2022-04-08 Doctor Dung santiago [facility] 18:51:24 Beacon [facility] COVID-19 (ID NOW RAPID TESTING) 2022-02-06 Levar stephenson [facility] 21:14:00 [facility] BASIC METABOLIC PANEL (NA, K, CL, 2022-02-06 Priyank stephenson [place] of CO2, GLUCOSE, BUN, CREATININE, CA) 08:31:00 [facility] CBC WITH DIFF 2022-02-06 Lenard stephenson [facility] 08:31:00 [facility] XR SMALL BOWEL SERIES 2022-02-05 Valorie Maxwell [facility] 19:21:09 [facility] BASIC METABOLIC PANEL (NA, K, CL, 2022-02-04 [facility] CO2, GLUCOSE, BUN, CREATININE, CA) 07:56:00 [facility] CBC WITH DIFF 2022-02-04 [facility] 07:56:00 [facility] URINE CULTURE 2022-02-03 [facility] 23:42:00 [facility] HEPATIC FUNCTION PANEL ([id number]) 2022-02-03 Geovanna Hooper niversity of (ALB,T.PRO,BILI 23:30:00 [facility],BU/BC,ALT,AST,ALK PHOS) Platter CT ABDOMEN PELVIS W CONTRAST 2022-02-03 Nguyễn Montano [facility] versity of 17:51:46 [facility] URINE DRUG (IMMUNOASSAY) - 2022-02-03 Nguyễn Montano Unive rsity of COMPREHENSIVE DRUG SCREEN 16:01:00 [facility] URINALYSIS 2022-02-03 Nguyễn Montano [facility] 16:01:00 [facility] AMYLASE 2022-02-03 Nguyễn Montano [facility] 16:00:00 [facility] LIPASE 2022-02-03 Nguyễn Montano [facility] 16:00:00 [facility] COMP. METABOLIC PANEL ([id number]) 2022-02-03 Nguyễn Montano Un iversity of 16:00:00 [facility] LIPID PANEL ([id number])(TOTAL 2022-02-03 Nwokedi, Geovanna [facility] sity of CHOLESTEROL, TRIGLYCERIDES, HDL) 16:00:00 [facility] ETHANOL 2022-02-03 Nguyễn Montano [facility] 16:00:00 [facility] SERUM DRUG (IMMUNOASSAY) - 2022-02-03 Nguyễn Montano Unive rsity of COMPREHENSIVE DRUG SCREEN 16:00:00 [facility] CBC WITH DIFF 2022-02-03 Nguyễn Montano [facility] 16:00:00 [facility] CT ABDOMEN PELVIS W CONTRAST 2022-01-26 Meka Hammonds Un iversity of 21:34:36 [facility] LIPASE 2022-01-26 Meka Hammonds [facility] 21:07:00 [facility] COMP. METABOLIC PANEL ([id number]) 2022-01-26 Meka Hammonds U niversity of 21:07:00 [facility] ETHANOL 2022-01-26 Meka Hammonds [facility] 21:07:00 [facility] CBC WITH DIFF 2022-01-26 Meka Hammonds [facility] 21:07:00 [facility] URINALYSIS 2022-01-26 Meka Hammonds [facility] 21:07:00 [facility] URINE DRUG (IMMUNOASSAY) - 2022-01-[address] [facility] ersity of COMPREHENSIVE DRUG SCREEN W/O 21:07[facility]00 [facility] FOR [facility]AGNOSIS AND 2022-01-26 Doctor Dung santiago, [facility] 20:04:49 Beacon [facility] INSURANCE CORRESPONDENCE 2022-01-02 Doctor Unassigned, Univ ersity of 05:01:00 Beacon [facility] CT ABDOMEN PELVIS W CONTRAST 2021-11-02 Mariana Ramirez Uni versity of 12:20:54 [facility] LIPASE 2021-11-02 Mariana Ramirez [place] of 10:40:00 [facility] COMP. METABOLIC PANEL ([id number]) 2021-11-02 Mariana Ramirez Un iversity of 10:40:00 [facility] CBC WITH DIFF 2021-11-02 Mariana Ramirez [place] of 10:40:00 [facility] PROTHROMBIN TIME / INR 2021-11-02 Mariana Ramirez Universit y of 10:40:00 [facility] ACTIVATED PARTIAL THRMPLAS KIMANI 2021-11-02 Mariana Ramirez U niversity of 10:40:00 [facility] CONSENT/REFUSAL FOR DIAGNOSIS AND 2021-11-02 Doctor Dung santiago, [facility] 09:27:03 Beacon [facility] AUTHORIZATION FOR RELEASE OF PHI 2021-10-25 Doctor Adrienne [facility] 05:01:00 Beacon [facility] FL TIME OR (NON-REPORTABLE) 2021-09-[address] [facility] ersity of 14:39:00 [facility] FL TIME OR (NON-REPORTABLE) 2021-09-[address] [facility] ersity of 14:39:00 [facility] FOOT ARTHRODESIS 2021-09-29 Zulema Rodriguez [place] of 12:40:00 [facility] DAY SURGERY - ADC 2021-09-29 Doctor Iker, [facility] 05:01:00 Beacon [facility] ASSIGNMENT OF BENEFITS 2021-09-27 Doctor Unasschad, Univer sity of 15:03:24 Beacon [facility] EXTERNAL PROVIDER RECORDS 2021-09-20 Doctor Unassigned, Uni versity of 05:01:00 [place]acon [facility] EXTERNAL PROVIDER RECORDS 2021-09-20 Doctor Unassigned, Uni versity of 05:01:00 [place] [facility] EXTERNAL PROVIDER RECORDS 2021-09-19 Doctor Unassigned, Uni versity of 05:01:00 [place] [facility] EXTERNAL PROVIDER RECORDS 2021-09-19 Doctor Unassigned, Uni versity of 05:01:00 [place] [facility] MAGNESIUM 2021-09-08 [facility] of 09:16:00 [facility] COMP. METABOLIC PANEL ([id number]) 2021-09-08 [facility] iversity of 09:16:00 [facility] CBC WITH DIFF 2021-09-08 [facility] of 09:16:00 [facility] MAGNESIUM 2021-09-07 [facility] of 07:41:00 [facility] HEPATIC FUNCTION PANEL ([id number]) 2021-09-07 [facility], [facility] niversity of (ALB,T.PRO,BILI 07:41:00 [facility] T,BU/BC,ALT,AST,ALK PHOS) Branch BASIC METABOLIC PANEL (NA, K, CL, 2021-09-07 [facility] System of CO2, GLUCOSE, BUN, CREATININE, CA) 07:41:00 [facility] CBC WITH DIFF 2021-09-07 [facility] 07:41:00 [facility] MR ABDOMEN W WO CONTRAST MRCP 2021-09-06 [facility], [facility] iversity of 15:50:18 [facility] MAGNESIUM 2021-09-06 [facility] 09:32:00 [facility] HEPATIC FUNCTION PANEL ([id number]) 2021-09-06 [facility], [facility] of (ALB,T.PRO,BILI 09:32:00 [facility] T,BU/BC,ALT,AST,ALK PHOS) Branch BASIC METABOLIC PANEL (NA, K, CL, 2021-09-06 [facility] of CO2, GLUCOSE, BUN, CREATININE, CA) 09:32:00 [facility] MAGNESIUM 2021-09-05 [facility] 08:23:00 [facility] HEPATIC FUNCTION PANEL ([id number]) 2021-09-05 [facility], [facility] niversity of (ALB,T.PRO,BILI 08:23:00 [place] [facility] T,BU/BC,ALT,AST,ALK PHOS) Branch BASIC METABOLIC PANEL (NA, K, CL, 2021-09-05 [facility] of CO2, GLUCOSE, BUN, CREATININE, CA) 08:23:00 [facility] CBC WITH DIFF 2021-09-05 [facility] of 08:23:00 [facility] MAGNESIUM 2021-09-04 [facility], [facility] of 09:15:00 [facility] HEPATIC FUNCTION PANEL ([id number]) 2021-09-04 [facility], [facility] niversity of (ALB,T.PRO,BILI 09:15:00 [facility] T,BU/BC,ALT,AST,ALK PHOS) Branch BASIC METABOLIC PANEL (NA, K, CL, 2021-09-04 [facility] of CO2, GLUCOSE, BUN, CREATININE, CA) 09:15:00 [facility] CBC WITH DIFF 2021-09-04 [facility] of 09:15:00 [facility] MAGNESIUM 2021-09-03 [facility], [facility] of 09:25:00 [facility] COMP. METABOLIC PANEL ([id number]) 2021-09-03 [facility], [facility] iversity of 09:25:00 [facility] CBC WITH DIFF 2021-09-03 [facility], [facility] of 09:25:00 [facility] CMV BY PCR 2021-09-03 [facility] 03:30:00 [facility] HSV 1&2, VZV NAAT 2021-09-03 [facility] of 03:30:00 [facility] ACETAMINOPHEN 2021-09-02 [facility] 15:34:00 [facility] HEPATITIS B SURFACE ANTIBODY 2021-09-02 [facility], [facility] versity of 15:34:00 [facility] HCV ANTIBODY 2021-09-02 [facility], [facility] of 15:34:00 [facility] HBC ANTIBODY (IGM & IGG) 2021-09-02 [facility] ity of 15:34:00 [facility] CBC WITH DIFF 2021-09-02 [facility] System of 15:33:00 [facility] EBV QUANTITATIVE PCR 2021-09-02 [facility] 15:33:00 [facility] SMOOTH MUSCLE AB,IGG W/REFLEX 2021-09-02 [facility], [facility] iversity of 15:32:00 [facility] PHOSPHORUS 2021-09-02 [facility], [facility] of 15:32:00 [facility] MAGNESIUM 2021-09-02 [facility] System of 15:32:00 [facility] FERRITIN SERUM 2021-09-02 [facility] of 15:32:00 [facility] CERULOPLASMIN 2021-09-02 [facility], [facility] of 15:32:00 [facility] ALPHA 1 ANTITRYPSIN 2021-09-02 [facility] System o f 15:32:00 [facility] IMMUNOGLOBULIN G 2021-09-02 [facility], [facility] of 15:32:00 [facility] COMP. METABOLIC PANEL ([id number]) 2021-09-02 Manjinder Nguyễnh Un iversity of 15:32:00 [facility] ANTI-NUCLEAR ANTIBODY SCREEN 2021-09-02 Nguyễn, [facility] Uni versity of 15:32:00 [facility] HEPATITIS B SURFACE ANTIGEN 2021-09-02 [facility], [facility] Univ ersity of 15:32:00 [facility] HAV ANTIBODY (IGG AND IGM) 2021-09-02 [facility], [facility] Unive rsity of 15:32:00 [facility] ANTI-NUCLEAR ANTIBODY TITER 2021-09-02 [facility], [facility] ersity of 15:32:00 [facility] ANTI-NUCLEAR ANTIBODY-PATHOLOGIST 2021-09-02 [facility] of INTERPRETATION 15:32:00 [facility] PROTHROMBIN TIME / INR 2021-09-02 [facility]:31[facility]00 [facility] HB ECG ROUTINE & RHYTHM STRIP 2021-09-02 Flower Sheryl Un iversity of 13:42:19 [facility] US ABDOMEN LIMITED 2021-09-02 [place] [facility] [place] of 05:27:56 [facility] HB ECG ROUTINE & RHYTHM STRIP 2021-09-01 Jaki Polanco Un iversity of 18:43:41 [facility] XR CHEST 1 VW 2021-09-01 Jaki Polanco [place] of 18:38:41 [facility] LIPASE 2021-09-01 Jaki Polanco [place] of 18:37:00 [facility] MAGNESIUM 2021-09-01 Jaki Polanco [place] of 18:37:00 [facility] TROPONIN I 2021-09-01 Jaki Polanco [place] of 18:37:00 [facility] COMP. METABOLIC PANEL ([id number]) 2021-09-01 Jaki Polanco Un iversity of 18:37:00 [facility] CBC WITH DIFF 2021-09-01 Jaki Polanco [place] of 18:37:00 [facility] URINALYSIS 2021-09-01 Jaki Polanco [place] of 18:37:00 [facility] HOSPITAL ADMISSION 2021-09-01 Doctor Unassigned, [place] of 05:01:00 Beacon [facility] CT ABDOMEN PELVIS W CONTRAST 2021-08-27 Maru Baez [place] of 17:00:42 [facility] URINALYSIS 2021-08-27 Maru Baez [place] of 16:26:00 [facility] LIPASE 2021-08-27 Maru Baez [place] of 15:59:00 [facility] TROPONIN I 2021-08-27 Maru Baez [place] of 15:59:00 [facility] COMP. METABOLIC PANEL ([id number]) 2021-08-27 Maru Baez [place] of 15:59:00 [facility] CBC WITH DIFF 2021-08-27 Maru Baez [place] of 15:59:00 [facility] CONSENT/REFUSAL FOR DIAGNOSIS AND 2021-08-27 [facility] 15:44:40 Beacon [facility] POCT GLUCOSE (AUTOMATED) 2021-07-28 Pasha Hinojosa ity of 22:28:00 [facility] RENAL ARTERY DUPLEX - BY VASCULAR 2021-07-28 Gatito [facility] 20:54:00 Fatou [facility] POCT GLUCOSE (AUTOMATED) 2021-07-28 Pasha Hinojosa ity of 16:45:00 [facility] POCT GLUCOSE (AUTOMATED) 2021-07-28 Pasha Hinojosa ity of 12:52:00 [facility] LIPASE 2021-07-28 Pasha Hinojosa of 09:31:00 [facility] COMP. METABOLIC PANEL ([id number]) 2021-07-28 Pasha Hinojosa iversity of 09:31:00 [facility] CBC WITH DIFF 2021-07-28 Pasha Hinojosa of 09:31:00 [facility] POCT GLUCOSE (AUTOMATED) 2021-07-28 Pasha Hinojosa ity of 09:08:00 [facility] POCT GLUCOSE (AUTOMATED) 2021-07-28 Pasha Hinojosa ity of 04:38:00 [facility] POCT GLUCOSE (AUTOMATED) 2021-07-28 Pasha Hinojosa ity of 01:02:00 [facility] POCT GLUCOSE (AUTOMATED) 2021-07-27 Pasha Hinojosa ity of 21:47:00 [facility] POCT GLUCOSE (AUTOMATED) 2021-07-27 Pasha Hinojosa ity of 16:48:00 [facility] POCT GLUCOSE (AUTOMATED) 2021-07-27 Pasha Hinojosa [facility] ity of 12:43:00 [facility] MAGNESIUM 2021-07-27 [facility] of 08:55:00 [facility] BASIC METABOLIC PANEL (NA, K, CL, 2021-07-27 [facility] of CO2, GLUCOSE, BUN, CREATININE, CA) 08:55:00 [facility] CBC WITH DIFF 2021-07-27 [facility] of 08:55:00 [facility] POCT GLUCOSE (AUTOMATED) 2021-07-27 Pasha Hinojosa [facility] ity of 08:47:00 [facility] POCT GLUCOSE (AUTOMATED) 2021-07-27 Pasha Hinojosa [facility] ity of 06:48:00 [facility] POCT GLUCOSE (AUTOMATED) 2021-07-27 Pasha Hinojosa [facility] ity of 01:50:00 [facility] POCT GLUCOSE (AUTOMATED) 2021-07-26 Pasha Hinojosa [facility] ity of 21:50:00 [facility] POCT GLUCOSE (AUTOMATED) 2021-07-26 Pasha Hinojosa [facility] ity of 16:50:00 [facility] LIPASE 2021-07-26 [facility] of 09:59:00 [facility] MAGNESIUM 2021-07-26 [facility] of 09:59:00 [facility] BASIC METABOLIC PANEL (NA, K, CL, 2021-07-26 [facility] of CO2, GLUCOSE, BUN, CREATININE, CA) 09:59:00 [facility] CBC WITH DIFF 2021-07-26 [facility] of 09:59:00 [facility] EKG-12 LEAD 2021-07-25 Pasha Hinojosa [place] of 23:35:46 [facility] POCT GLUCOSE (AUTOMATED) 2021-07-25 Pasha Hinojosa [facility] ity of 14:19:00 [facility] HEPATIC FUNCTION PANEL ([id number]) 2021-07-25 Jesusita Mederos niversity of (ALB,T.PRO,BILI 12:28:00 [facility] T,BU/BC,ALT,AST,ALK PHOS) Platter BASIC METABOLIC PANEL (NA, K, CL, 2021-07-25 [facility] of CO2, GLUCOSE, BUN, CREATININE, CA) 12:28:00 [facility] CBC WITH DIFF 2021-07-25 G[facility] of 10:59:00 [facility] MAGNESIUM 2021-07-24 [facility] of 10:49:00 [facility] HEPATIC FUNCTION PANEL ([id number]) 2021-07-24 Pasha Hinojosa U niversity of (ALB,T.PRO,BILI 10:49:00 [facility],BU/BC,ALT,AST,ALK PHOS) Platter BASIC METABOLIC PANEL (NA, K, CL, 2021-07-24 Brigido Hinojosa [facility] of CO2, GLUCOSE, BUN, CREATININE, CA) 10:49:00 [facility] CBC WITH DIFF 2021-07-24 Pasha Hinojosa [place] of 09:16:00 [facility] PHOSPHORUS 2021-07-24 Lisandro [facility] of 00:43:00 [facility] CT ABDOMEN PELVIS W CONTRAST 2021-07-23 Meka Hammonds Un iversity of 22:53:27 [facility] LIPASE 2021-07-23 Meka Hammonds [facility] 21:19:00 [facility] MAGNESIUM 2021-07-23 Meka Hammonds [place] of 21:19:00 [facility] TROPONIN I 2021-07-23 Meka Hammonds [place] of 21:19:00 [facility] COMP. METABOLIC PANEL ([id number]) 2021-07-23 Meka Hammonds U niversity of 21:19:00 [facility] D-DIMER 2021-07-23 Meka Hammonds [place] of 21:19:00 [facility] CBC WITH DIFF 2021-07-23 Meka Hammonds [place] of 21:18:00 [facility] URINALYSIS 2021-07-23 Meka Hammonds [place] of 21:18:00 [facility] XR CHEST 1 VW 2021-07-23 Meka Hammonds [place] of 21:03:00 [facility] HB ECG ROUTINE & RHYTHM STRIP 2021-07-23 Meka Hammonds U niversity of 20:31:58 [facility] CONSENT/REFUSAL FOR DIAGNOSIS AND 2021-07-23 Doctor Dung santiago [facility] 20:20:48 Beacon [facility] ESOPHAGOGASTRODUODENOSCOPY 2021-07-04 Gulshan Piper rsity of 17:04:00 [facility] EGD (ENDO) 2021-07-04 Jeannie Slade [place] of 16:11:40 [facility] EGD (ENDO) 2021-07-04 Jeannie Slade [place] of 16:11:40 [facility] DAY SURGERY - ADC 2021-07-04 Doctor Unassigned, University of 05:01:00 [place] [facility] EXTERNAL PROVIDER RECORDS 2021-06-23 Doctor Unassigned, Uni versity of 06:01:00 Beacon [facility] EXTERNAL PROVIDER RECORDS 2021-06-23 Doctor Unassigned, Uni versity of 06:01:00 Beacon [facility] CT ABDOMEN PELVIS W CONTRAST 2021-06-04 Mariana Ramirez Uni versity of 01:33:00 [facility] US GALL BLADDER 2021-06-03 Mariana Ramirez of 23:57:52 [facility] LIPASE 2021-06-03 Mariana Ramirez of 20:30:00 [facility] TROPONIN I 2021-06-03 Mariana Ramirez of 20:30:00 [facility] COMP. METABOLIC PANEL ([id number]) 2021-06-03 Mariana Ramirez Un iversity of 20:30:00 [facility] CBC WITH DIFF 2021-06-03 Mariana Ramirez of 20:30:00 [facility] PROTHROMBIN TIME / INR 2021-06-03 Mariana Ramirezit y of 20:30:00 [facility] ACTIVATED PARTIAL THRMPLAS KIMANI 2021-06-03 Mariana Ramirez U niversity of 20:30:00 [facility] N-TERMINAL PRO-BNP 2021-06-03 Mariana Ramirez of 20:30:00 [facility] COVID-19 (ID NOW RAPID TESTING) 2021-06-03 Mariana Ramirez of 20:30:00 [facility] LACTIC ACID WHOLE BLOOD 2021-06-03 Mariana Ramirezi ty of 20:26:00 [facility] XR CHEST 1 VW 2021-06-03 Mariana Ramirez [place] of 20:15:36 [facility] CONSENT/REFUSAL FOR DIAGNOSIS AND 2021-06-03 [facility] 19:39:18 Beacon [facility] EKG-12 LEAD 2021-05-22 Consuelo Avendaño [place] of 06:47:40 [facility] CT CHEST PULMONARY ANGIOGRAM 2021-05-22 Consuelo Avendaño Uni versity of 06:08:50 [facility] TROPONIN I 2021-05-22 [facility] 05:41:00 [facility] COMP. METABOLIC PANEL ([id number]) 2021-05-22 Consuelo Avendaño Un iversity of 05:41:00 [facility] CBC WITH DIFF 2021-05-22 Consuelo Avendaño [place] of 05:41:00 [facility] N-TERMINAL PRO-BNP 2021-05-22 Jarocho [facility] of 05:41:00 [facility] NOTICE OF PRIVACY PRACTICES 2021-05-22 Doctor Unassigned, U niversity of 05:17:11 Beacon [facility] CONSENT/REFUSAL FOR DIAGNOSIS AND 2021-05-22 [facility] 05:13:31 Beacon [facility] POCT MOLECULAR FLU 2021-05-18 [facility] of 15:26:00 [facility] POCT MOLECULAR STREP 2021-05-18 [facility] of 15:22:00 [facility] COVID-19 (ID NOW RAPID TESTING) 2021-04-15 Consuelo Avendaño of 20:37:00 [facility] CT ABDOMEN PELVIS W CONTRAST 2021-04-15 Consuelo Avendaño Uni versity of 20:23:27 [facility] LIPASE 2021-04-15 Consuelo Avendaño of 20:23:00 [facility] TROPONIN I 2021-04-15 Consuelo Avendaño of 20:23:00 [facility] COMP. METABOLIC PANEL ([id number]) 2021-04-15 Consuelo Avendaño Un iversity of 20:23:00 [facility] CBC WITH DIFF 2021-04-15 [facility] 20:23:00 [facility] URINALYSIS 2021-04-15 Kaetnfalguni [facility] of 20:23:00 [facility] CONSENT/REFUSAL FOR DIAGNOSIS AND 2021-04-15 Doctor Dung santiago, [facility] 19:33:08 Beacon [facility] CT ABDOMEN PELVIS W CONTRAST 2021-03-26 Consuelo Avendaño Uni versity of 02:08:33 [facility] LIPASE 2021-03-26 [facility] 00:57:00 [facility] TROPONIN I 2021-03-26 [facility] 00:57:00 [facility] COMP. METABOLIC PANEL ([id number]) 2021-03-26 Consuelo Avendaño Un iversity of 00:57:00 [facility] CBC WITH DIFF 2021-03-26 [facility] 00:57:00 [facility] URINALYSIS 2021-03-26 [facility] 00:57:00 [facility] N-TERMINAL PRO-BNP 2021-03-26 [facility] 00:57:00 [facility] XR CHEST 1 VW 2021[facility]03-[facility] 00:17:07 [facility] CONSENT/REFUSAL FOR DIAGNOSIS AND 2021-03-25 [facility] 23:45:22 Beacon [facility] SARS-COV-2 COVID-19 VACCINE 2021-03-25 Doctor Unassigned, U niversity of BOOSTER,0.25ML,IM (MODERNA) 17:05:57 Beacon [facility] COMP. METABOLIC PANEL ([id number]) 2021-03-20 Meka Hammonds U niversity of 23:40:00 [facility] CT ABDOMEN PELVIS W CONTRAST 2021-03-20 Meka Hammonds Un iversity of 23:00:43 [facility] LIPASE 2021-03-20 Meka Hammonds [facility] 22:41:00 [facility] TROPONIN I 2021-03-20 Meka Hammonds [facility] 22:41:00 [facility] CBC WITH DIFF 2021-03-20 Meka Hammonds [place] of 22:41:00 [facility] NOTICE OF PRIVACY PRACTICES 2021-03-20 Cailin Rojas niversity of 21:43:47 Beacon [facility] CONSENT/REFUSAL FOR DIAGNOSIS AND 2021-03-20 [facility] 21:43:12 Beacon [facility] CT ABDOMEN PELVIS W CONTRAST 2021-02-12 IsabelleRosalindaKyle U niversity of 22:22:23 [facility] LIPASE 2021-02-12 [facility] of 19:54:00 [facility] COMP. METABOLIC PANEL ([id number]) 2021-02-12 [facility] of 19:54:00 [facility] CBC WITH DIFF 2021-02-12 [facility] of 19:54:00 [facility] URINALYSIS 2021-02-12 [facility] of 19:54:00 [facility] CONSENT/REFUSAL FOR DIAGNOSIS AND 2021-02-12 Doctor Dung santiago [facility] 19:03:31 Beacon [facility] COMP. METABOLIC PANEL ([id number]) 2021-01-18 Maru Baez [facility] 04:11:00 [facility] CT ABDOMEN PELVIS W CONTRAST 2021-01-18 Maru Baez [facility] 03:35:25 [facility] LIPASE 2021-01-18 Maru Baez [facility] 02:54:00 [facility] CBC WITH DIFF 2021-01-18 Maru Baez [facility] 02:54:00 [facility] URINALYSIS 2021-01-18 Maru Baez [facility] 02:54:00 [facility] CONSENT/REFUSAL FOR DIAGNOSIS AND 2021-01-18 [facility] 02:23:56 Beacon [facility] XR CHEST 2 VW 2021-01-07 Consuelo Avendaño [facility] 16:49:00 [facility] COVID-19 (ID NOW RAPID TESTING) 2020-12-30 Maru Baez [facility] 22:02:00 [facility] CT ABDOMEN PELVIS W CONTRAST 2020-12-30 Maru Baez [facility] 18:49:58 [facility] LIPASE 2020-12-30 Maru Baez [facility] 18:29:00 [facility] HEPATIC FUNCTION PANEL ([id number]) 2020-12-30 Maru Baez [facility] (ALB,T.PRO,BILI 18:29:00 [facility],BU/BC,ALT,AST,[facility] BASIC METABOLIC PANEL (NA, K, CL, 2020-12-30 Jerilyn Baez ra [facility] CO2, GLUCOSE, BUN, CREATININE, CA) 18:29:00 [facility] CBC WITH DIFF 2020-12-30 Maru Baez [facility] 18:29:00 [facility] URINALYSIS 2020-12-30 Maru Baez [facility] 18:29:00 [facility] CONSENT/REFUSAL FOR DIAGNOSIS AND 2020-12-30 Doctor Dung santiago, [facility] 18:01:18 Beacon [facility] PELVIS COMPLETE WITH 2020-12-23 Vira Washburn ty of TRANSVAGINAL 21:36:03 [facility] US GALL BLADDER 2020-12-05 [facility] 22:39:34 F [facility] LACTIC ACID WHOLE BLOOD 2020-12-05 El[address] Poole [facility] sity of 22:16:00 F [facility] CT ABDOMEN PELVIS W CONTRAST 2020-12-05 Eliana Poole U niversity of 21:23:47 F [facility] ASSIGNMENT OF BENEFITS 2020-12-05 Doctor Unassigned, [facility] sity of 20:53:22 Beacon [facility] LIPASE 2020-12-05 Maru Baez [facility] 20:12:00 [facility] COMP. METABOLIC PANEL ([id number]) 2020-12-05 Maru Baez [facility] 20:12:00 [facility] CBC WITH DIFF 2020-12-05 Maru Baez [facility] 20:12:00 [facility] URINALYSIS 2020-12-05 Maru Baez [facility] 20:12:00 [facility] CONSENT/REFUSAL FOR DIAGNOSIS AND 2020-12-05 [facility] 18:56:42 Beacon [facility] MAGNESIUM 2020-10-12 [facility] 08:21:00 [facility] HEPATIC FUNCTION PANEL ([id number]) 2020-10-12 [place], U niversity of (ALB,T.PRO,BILI 08:21:00 [facility],BU/BC,ALT,AST,ALK PHOS) Platter LIPID PANEL ([id number])(TOTAL 2020-10-12 Ruth Becerra of CHOLESTEROL, TRIGLYCERIDES, HDL) 08:21:00 Desirae [facility] CBC WITH DIFF 2020-10-12 [facility], [facility] 08:21:00 [facility] PROTHROMBIN TIME / INR 2020-10-12 [place], [facility] 08:21:00 [facility] ACTIVATED PARTIAL THRMPLAS KIMANI 2020-10-12 [facility], U niversity of 08:21:00 [facility] HEPATIC FUNCTION PANEL ([id number]) 2020-10-12 [place], U niversity of (ALB,T.PRO,BILI 03:31:00 [facility] T,BU/BC,ALT,AST,ALK PHOS) Platter BASIC METABOLIC PANEL (NA, K, CL, 2020-10-12 Ramesh [place] of CO2, GLUCOSE, BUN, CREATININE, CA) 03:31:00 [facility] COVID-19 (ID NOW RAPID TESTING) 2020-10-11 Mariana Ramirez of 16:15:00 [facility] US GALL BLADDER 2020-10-11 Mariana Ramirez of 15:26:59 [facility] HB ECG ROUTINE & RHYTHM STRIP 2020-10-11 Mariana Ramirez Un iversity of 13:53:00 [facility] LIPASE 2020-10-11 Mariana Ramirez of 13:49:00 [facility] TROPONIN I 2020-10-11 Mariana Ramirez of 13:49:00 [facility] HEPATIC FUNCTION PANEL ([id number]) 2020-10-11 Mariana Ramirez niversity of (ALB,T.PRO,BILI 13:49:00 [facility] T,BU/BC,ALT,AST,ALK PHOS) Platter BASIC METABOLIC PANEL (NA, K, CL, 2020-10-11 Florina Ramirez [facility] of CO2, GLUCOSE, BUN, CREATININE, CA) 13:49:00 [facility] CBC WITH DIFF 2020-10-11 Mariana Ramirez of 13:49:00 [facility] URINALYSIS 2020-10-11 Mariana Ramirez of 13:49:00 [facility] CONSENT/REFUSAL FOR DIAGNOSIS AND 2020-10-11 Doctor Dung santiago, [facility] 13:29:15 Beacon [facility] COVID-19 (ID NOW RAPID TESTING) 2020-10-04 Maisha Reyes [facility] 23:19:00 [facility] URINALYSIS 2020-10-04 Maisha Reyes [facility] 23:18:00 [facility] LIPASE 2020-10-04 Maisha Reyes [facility] 23:17:00 [facility] COMP. METABOLIC PANEL ([id number]) 2020-10-04 Maisha Reyes Un iversity of 23:17:00 [facility] CBC WITH DIFF 2020-10-04 Maisha Reyes [facility] 23:17:00 [facility] CONSENT/REFUSAL FOR DIAGNOSIS AND 2020-08-05 [facility] 13:05:44 Beacon [facility] FL TIME OR (NON-REPORTABLE) 2020-07-18 Moise Gamez niversity of 12:50:00 [facility] FL TIME OR (NON-REPORTABLE) 2020-07-18 Moise Gamez niversity of 12:50:00 [facility] BLOCK EPIDURAL 2020-07-18 Moise Gamez [facility] 12:25:00 [facility] POCT GLUCOSE (AUTOMATED) 2020-07-[address] [facility] ersity of 12:01:00 [facility] POCT GLUCOSE (AUTOMATED) 2020-07-[address] [facility] ersity of 12:01:00 [facility] DAY SURGERY - ADC 2020-07-18 Doctor Iker, [facility] 05:01:00 Beacon [facility] CT ABDOMEN PELVIS W CONTRAST 2020-07-08 Jaki Polanco Uni versity of 00:59:19 [facility] LIPASE 2020-07-08 Jaki Polanco [facility] 00:23:00 [facility] MAGNESIUM 2020-07-08 Jaki Polanco [facility] 00:23:00 [facility] TROPONIN I 2020-07-08 Jaki Polanco [facility] 00:23:00 [facility] COMP. METABOLIC PANEL ([id number]) 2020-07-08 Jaki Polanco Un iversity of 00:23:00 [facility] CBC WITH DIFF 2020-07-08 Jaki Polanco [facility] 00:23:00 [facility] URINALYSIS 2020-07-08 Jaki Polanco [facility] 00:23:00 [facility] COVID-19 (ID NOW RAPID TESTING) 2020-07-08 Jaki Polanco [facility] 00:23:00 [facility] XR CHEST 1 VW 2020-07-08 Jaki Polanco [facility] 00:01:58 [facility] CONSENT/REFUSAL FOR DIAGNOSIS AND 2020-07-07 Doctor Dung santiago [facility] 23:40:12 Beacon [facility] FL TIME OR (NON-REPORTABLE) 2020-07-04 Moise Gamez U niversity of 13:10:00 [facility] 2020-07-04 Doctor Dong [facility] 05:01:00 Beacon [facility] ASSIGNMENT OF BENEFITS 2020-07-[address] [facility] 14:01:02 Beacon [facility] FL TIME OR (NON-REPORTABLE) 2020-06-20 Moise Gamez U niversity of 14:12:00 [facility] 2020-06-20 Doctor Dong [facility] 06:01:00 Beacon [facility] ASSIGNMENT OF BENEFITS 2020-06-17 Doctor Iker, Univer sity of 21:21:05 Beacon [facility] CONSENT/REFUSAL FOR DIAGNOSIS AND 2020-06-15 Doctor Dung snatiago [facility] 20:59:25 Beacon [facility] CONSENT/REFUSAL FOR DIAGNOSIS AND 2020-06-15 Doctor Dung santiago [facility] 20:59:25 Beacon [facility] ASSIGNMENT OF BENEFITS 2020-06-15 Doctor Iker, Univer sity of 20:59:08 Beacon [facility] ASSIGNMENT OF BENEFITS 2020-06-15 Doctor Iker, Univer sity of 20:59:08 Beacon [facility] CONSENT/REFUSAL FOR DIAGNOSIS AND 2020-06-15 Doctor Dung santiago [facility] 20:58:52 Beacon [facility] CONSENT/REFUSAL FOR DIAGNOSIS AND 2020-06-15 Doctor Dung santiago [facility] 20:58:52 Beacon [facility] ASSIGNMENT OF BENEFITS 2020-06-15 Doctor Padmasschad, Univer sity of 20:58:37 Beacon [facility] ASSIGNMENT OF BENEFITS 2020-06-15 Doctor Padmassigned, Univer sity of 20:58:37 Beacon [facility] NOTICE OF PRIVACY PRACTICES 2020-06-15 Doctor Unassigned, U niversity of 20:58:21 Beacon [facility] NOTICE OF PRIVACY PRACTICES 2020-06-15 Doctor Unassigned, U niversity of 20:58:21 Beacon [facility] CONSENT/REFUSAL FOR DIAGNOSIS AND 2020-06-15 Doctor Dung santiago [facility] 20:58:08 Beacon [facility] CONSENT/REFUSAL FOR DIAGNOSIS AND 2020-06-15 [facility] 20:58:08 Beacon [facility] ASSIGNMENT OF BENEFITS 2020-06-15 Doctor Padmasschad, Univer sity of 20:57:50 Beacon [facility] ASSIGNMENT OF BENEFITS 2020-06-15 Doctor Padmasschad, Univer sity of 20:57:50 Beacon [facility] DSU PRE-OP 2020-06-15 [facility] 06:01[facility]00 Beacon [facility] DSU PRE-OP 2020-06-15 [facility] 06:01:00 Beacon [facility] HEPATIC FUNCTION PANEL ([id number]) 2020-05-06 [facility] of (ALB,T.PRO,BILI 22:56:00 [facility],BU/BC,ALT,AST,ALK PHOS) Platter BASIC METABOLIC PANEL (NA, K, CL, 2020-05-06 [facility] CO2, GLUCOSE, BUN, CREATININE, CA) 22:56:00 [facility] XR CHEST 1 VW 2020-05-06 [facility] 21:44:02 [facility] LIPASE 2020-05-06 [facility] 21:40:00 [facility] TROPONIN I 2020-05-06 [facility] 21:40:00 [facility] CBC WITH DIFF 2020-05-06 [facility] of 21:40:00 [facility] URINALYSIS 2020-05-06 [facility] of 21:32:00 [facility] COVID-19 (ID NOW RAPID TESTING) 2020-05-06 [facility] of 21:32:00 [facility] NOTICE OF PRIVACY PRACTICES 2020-05-06 Doctor Unassigned, U niversity of 21:14:50 Beacon [facility] CONSENT/REFUSAL FOR DIAGNOSIS AND 2020-05-06 Doctor [facility]pramod [facility] 21:14:25 Beacon [facility] CT ABDOMEN PELVIS W CONTRAST 2020-03-26 Gabriele Grayson Un iversity of 06:12:05 [facility] URINALYSIS 2020-03-26 Gabriele Grayson [place] of 05:02:00 [facility] LIPASE 2020-03-26 EstherazGabriele bright [facility] of 03:38:00 [facility] COMP. METABOLIC PANEL ([id number]) 2020-03-26 Gabriele Grayson U niversity of 03:38:00 [facility] CBC WITH DIFF 2020-03-26 Gabriele Grayson [place] of 03:38:00 [facility] COVID-19 (ID NOW RAPID TESTING) 2020-03-26 Gabriele Grayson [place] of 03:38:00 [facility] CONSENT/REFUSAL FOR DIAGNOSIS AND 2020-03-26 [facility] 02:58:31 Beacon [facility] REFERRAL- REQUEST/RESPONSE 2020-03-18 Doctor Unassigned, Un iversity of 06:01:00 Beacon [facility] MR BRAIN WO CONTRAST 2020-02-08 Monet Dominguez [facility] y of 13:47:00 [facility] BASIC METABOLIC PANEL (NA, K, CL, 2020-02-07 [facility] of CO2, GLUCOSE, BUN, CREATININE, CA) 08:51:00 [facility] CBC WITH DIFF 2020-02-07 [facility] of 08:51:00 [facility] COMP. METABOLIC PANEL ([id number]) 2020-02-05 Rigoberto Menendez Un iversity of 09:37:00 [facility] CBC WITH DIFF 2020-02-05 Juan Luis, Rigoberto University of 09:37:00 [facility] MR CERVICAL SPINE WO CONTRAST 2020-02-05 AidenJesusita huitron Un iversity of 00:24:54 [facility] MAGNESIUM 2020-02-04 Juan Luis, [facility] University of 10:01:00 [facility] COMP. METABOLIC PANEL ([id number]) 2020-02-04 Rigoberto Menendez Un iversity of 10:01:00 [facility] CBC WITH DIFF 2020-02-04 Jesusita Aguillon [facility] of 10:01:00 [facility] N-TERMINAL PRO-BNP 2020-02-04 Juan Luis, Rigoberto [place] of 10:01:00 [facility] BLOOD CULTURE SCREEN 2020-02-03 Juan Luis, [facility] of 22:19:00 [facility] RENAL ARTERY DUPLEX BY VASCULAR 2020-02-03 Rigoberto Menendez [place] of LAB 17:42:39 [facility] AMMONIA, PLASMA 2020-02-03 Juan Luis, [facility] of 17:06:00 [facility] SMOOTH MUSCLE AB,IGG W/REFLEX 2020-02-03 Charafeddine, Un iversity of 16:43:00 Nizar C [facility] OCCULT (GUAIAC) BLOOD 2020-02-03 Rigoberto Menendez [place] of 16:42:00 [facility] PHOSPHORUS 2020-02-03 Juan Luis, [facility] of 08:45:00 [facility] CREATINE KINASE 2020-02-03 Rex [facility] of 08:45:00 [facility] URIC ACID 2020-02-03 Juan Luis, [facility] of 08:45:00 [facility] MAGNESIUM 2020-02-03 Juan Luis, [facility] of 08:45:00 [facility] COMP. METABOLIC PANEL ([id number]) 2020-02-03 Rigoberto Menendez Un iversity of 08:45:00 [facility] CBC WITH DIFF 2020-02-03 Rigoberto Menendez [place] of 08:45:00 [facility] N-TERMINAL PRO-BNP 2020-02-03 Juan Luis, [facility] of 08:45:00 [facility] BLOOD CULTURE SCREEN 2020-02-02 Juan Luis, [facility] of 20:19:00 [facility] BLOOD CULTURE SCREEN 2020-02-02 Juan Luis, [facility] of 19:58:00 [facility] CERULOPLASMIN 2020-02-02 [facility] of 19:58:00 [facility], FREE 2020-02-02 Juan Luis [facility] o f 19:58:00 [facility] PROTHROMBIN TIME / INR 2020-02-02 [facility] of 19:58:00 [facility] ANTI-NUCLEAR ANTIBODY SCREEN 2020-02-02 Ross, [facility] versity of 19:58:00 [facility] B SURFACE ANTIBODY 2020-02-02 [facility], [facility] Uni versity of 19:58:00 [facility] HEPATITIS B SURFACE ANTIGEN 2020-02-02 [facility], [facility] ersity of 19:58:00 [facility] HCV ANTIBODY 2020-02-02 [facility] of 19:58:00 [facility] HAV ANTIBODY (IGG AND IGM) 2020-02-02 Juan Luis [facility] of 19:58:00 [facility] PROCALCITONIN 2020-02-02 [facility] of 19:58:00 [facility] BLOOD CULTURE WORKUP 2020-02-02 [facility] of 19:58:00 [facility] CREATINE KINASE 2020-02-02 [facility] of 11:31:00 [facility] LIPASE 2020-02-02 [facility] of 11:31:00 [facility] COMP. METABOLIC PANEL ([id number]) 2020-02-02 [facility] iversity of 11:31:00 [facility] LIPID PANEL ([id number])(TOTAL 2020-02-02 [facility] CHOLESTEROL, TRIGLYCERIDES, HDL) 11:31:00 [facility] LITHIUM 2020-02-02 [facility] of 11:31:00 [facility] POCT GLUCOSE (AUTOMATED) 2020-02-02 Pasha Hinojosa [facility] it of 11:24:00 [facility] LIPASE 2020-02-02 Pasha Hinojosa [place] of 08:21:00 [facility] COMP. METABOLIC PANEL ([id number]) 2020-02-02 [facility] iversity of 08:21:00 [facility] LITHIUM 2020-02-02 Micaela [facility] of 08:21:00 [facility] CBC WITH DIFF 2020-02-02 Micaela Pasha [place] of 08:21:00 [facility] GLYCOSYLATED HEMOGLOBIN (A1C) 2020-02-02 Rigoberto Menendez iversity of 08:21:00 [facility] ACUTE CARE VENOUS BLOOD GAS 2020-02-[address] [facility] ersity of 19:23:00 [facility] US ABDOMEN COMPLETE 2020-02-01 [facility] o f 16:39:39 [facility] POCT GLUCOSE (AUTOMATED) 2020-02-01 [facility] ity of 12:46:00 [facility] LIPASE 2020-02-01 [facility] of 10:09:00 [facility] COMP. METABOLIC PANEL ([id number]) 2020-02-01 [facility] iversity of 10:09:00 [facility] LITHIUM 2020-02-01 [facility] of 10:09:00 [facility] CBC WITH DIFF 2020-02-01 Micaela [facility] of 10:09:00 [facility] OSMOLALITY SERUM 2020-02-01 MicaelaChan [facility] of 00:10:00 [facility] VITAMIN B12, LEVEL 2020-02-01 Micaela [facility] of 00:10:00 [facility] FOLATE 2020-02-01 Micaela [facility] of 00:10:00 [facility] ABG+COOX+NA+K+GLU+CA2+ 2020-01-31 [facility] ty of 20:39:00 [facility] BLOOD CULTURE SCREEN 2020-01-31 [facility] of 18:21:00 [facility] IRON PANEL 2020-01-31 Micaela [facility] of 18:21:00 [facility] SALICYLATE 2020-01-31 [facility] of 18:21:00 [facility] LITHIUM 2020-01-31 [facility] of 18:21:00 [facility] VALPROIC ACID, TOTAL 2020-01-31 [facility] of 18:21:00 [facility] BLOOD CULTURE WORKUP 2020-01-31 Asaf [facility] of 18:21:00 [facility] ADC OR PERICO ONLY - RPR 2020-01-[address] [facility] of 18:21:00 [facility] GRAM POSITIVE BLOOD PATHOGENS DNA 2020-01-31 May Ron ut [facility] of PROBE-AEROBIC 18:21:00 [facility] XR ABDOMEN 1 VW 2020-01-31 Asaf [facility] of 17:09:26 [facility] XR CHEST 1 VW 2020-01-31 Asaf [facility] of 17:09:26 [facility] CT HEAD WO CONTRAST 2020-01-31 Asaf [facility] of 16:58:10 [facility] URINALYSIS 2020-01-31 Ron, [facility] of 16:13:00 [facility] URINE CULTURE 2020-01-31 [facility] 16:13:00 [facility] ADC / LCC - DRUG SCREEN TRIAGE 2020-01-31 Asaf [facility] of 16:13:00 [facility] COVID-19 (ID NOW RAPID TESTING) 2020-01-31 [facility] of 16:00:00 [facility] LAB ONLY COVID INTERPRETATION 2020-01-31 Asaf Kirstin U niversity of 16:00:00 [facility] BLOOD CULTURE SCREEN 2020-01-31 [facility] of 15:58:00 [facility] CREATINE KINASE 2020-01-31 [facility] of 15:58:00 [facility] LIPASE 2020-01-31 Ron, [facility] of 15:58:00 [facility] FERRITIN SERUM 2020-01-31 [facility] of 15:58:00 [facility] AMMONIA, PLASMA 2020-01-31 [facility] of 15:58:00 [facility] TROPONIN I 2020-01-31 [facility] of 15:58:00 [facility] THYROID STIMULATING HORMONE 2020-01-31 Lisandro [facility] ersity of 15:58:00 [facility] HEPATIC FUNCTION PANEL ([id number]) 2020-01-31 [facility] of (ALB,T.PRO,BILI 15:58:00 [facility]BC,ALT,[facility] BASIC METABOLIC PANEL (NA, K, CL, 2020-01-31 [facility] of CO2, GLUCOSE, BUN, CREATININE, CA) 15:58:00 [facility] ETHANOL 2020-01-31 [facility] of 15:58:00 [facility] DIFF CONSULT INTERPRETATION 2020-01-31 [facility] ersity of 15:58:00 [facility] CBC WITH DIFF 2020-01-31 [facility] of 15:58:00 [facility] RETICULOCYTES AUTOMATED 2020-01-31 [facility] of 15:58:00 [facility] N-TERMINAL PRO-BNP 2020-01-31 [facility] o f 15:58:00 [facility] LACTIC ACID WHOLE BLOOD 2020-01-31 [facility] ity of 15:57:00 [facility] EKG-12 LEAD 2020-01-31 Mariana Ramirez [place] of 15:48:34 [facility] EKG-12 LEAD 2020-01-31 [facility] of 15:40:40 [facility] NOTICE OF PRIVACY PRACTICES 2020-01-31 Doctor Unassigned, U niversity of 15:38:09 Beacon [facility] CONSENT/REFUSAL FOR DIAGNOSIS AND 2020-01-31 Doctor Unasspramod santiago, [facility] TREATMENT 15:37:54 Beacon [facility] EXTERNAL PROVIDER RECORDS 2020-01-31 Doctor Unasschad, Uni versity of 05:01:00 Beacon [facility] EMERGENCY DEPARTMENT DOCUMENTS 2020-01-31 Doctor Unasschad , [facility] 05:01:00 Beacon [facility] HOSPITAL ADM - MISC 2020-01-31 Doctor Unasschad, Universit y of 05:01:00 Beacon [facility] ADMISSION 2020-01-31 Doctor Unaantonio, [place] of 05:01:00 Beacon [facility] CT ABDOMEN PELVIS W CONTRAST 2019-12-18 Meka Hammonds Un iversity of 22:11:19 [facility] URINALYSIS 2019-12-18 Meka Hammonds [facility] 21:07:00 [facility] LIPASE 2019-12-18 Meka Hammonds [place] of 20:39:00 [facility] TROPONIN I 2019-12-18 [facility] 20:39:00 [facility] HEPATIC FUNCTION PANEL ([id number]) 2019-12-18 [facility] (ALB,T.PRO,BILI 20:39:00 [facility],BU/BC,ALT,AST,ALK PHOS) Platter BASIC METABOLIC PANEL (NA, K, CL, 2019-12-18 [facility] CO2, GLUCOSE, BUN, CREATININE, CA) 20:39:00 [facility] CBC WITH DIFF 2019-12-18 [facility] 20:39:00 [facility] CONSENT/REFUSAL FOR DIAGNOSIS AND 2019-12-18 [facility] 20:15:38 Beacon [facility] XR CHEST 1 VW COVID 2019-08-22 Gabriele Grayson [facility] 01:15:45 [facility] LIPASE 2019-08-22 [facility] 01:00:00 [facility] TROPONIN I 2019-08-22 [facility] 01:00:00 [facility] COMP. METABOLIC PANEL ([id number]) 2019-08-22 LeahgaGabriele U niversity of 01:00:00 [facility] CBC WITH DIFFERENTIAL 2019-08-22 LeahgaGabriele [facility] y of 01:00:00 [facility] PROTHROMBIN TIME / INR 2019-08-22 [facility] 01:00[facility]00 [facility] ACTIVATED PARTIAL THRMPLAS KIMANI 2019-08-22 Gabriele Grayson [facility] 01:00:00 [facility]INALYSIS 2019-08-22 [facility] 01:00:00 [facility] CORONAVIRUS COVID-19 TESTING 2019-08-22 [facility] Un iversity of 01:00:00 [facility] EKG-12 LEAD 2019-08-22 Gabriele Grayson [facility] 00:52:01 [facility] CONSENT/REFUSAL FOR DIAGNOSIS AND 2019-08-22 [facility]30 [facility] LIPASE 2019-06-25 [facility] of 22:49:00 [facility] TROPONIN I 2019-06-25 [facility] of 22:49:00 [facility] HEPATIC FUNCTION PANEL ([id number]) 2019-06-25 [facility] of (ALB,T.PRO,BILI 22:49:00 [place] [facility] T,BU/BC,ALT,AST,ALK PHOS) Platter BASIC METABOLIC PANEL (NA, K, CL, 2019-06-25 [facility] of CO2, GLUCOSE, BUN, CREATININE, CA) 22:49:00 [facility] CBC WITH DIFFERENTIAL 2019-06-25 [facility] y of 22:49:00 [facility] EKG-12 LEAD 2019-06-25 [facility] of 22:33:31 [facility]YSIS 2019-06-25 [facility] 22:13:00 [facility] LIPASE 2019-06-19 [facility] of 20:30:00 [facility] TEST, SERUM 2019-06-19 [facility] ty of 20:30:00 [facility] HEPATIC FUNCTION PANEL ([id number]) 2019-06-19 [facility] of (ALB,T.PRO,BILI 20:30:00 [place] [facility] T,BU/BC,ALT,AST,ALK PHOS) Platter BASIC METABOLIC PANEL (NA, K, CL, 2019-06-19 [facility] of CO2, GLUCOSE, BUN, CREATININE, CA) 20:30:00 [facility] CBC WITH DIFFERENTIAL 2019-06-19 [facility] ty of 20:30:00 [facility] URINALYSIS 2019-06-19 [facility] of 20:30:00 [facility] CONSENT/REFUSAL FOR DIAGNOSIS AND 2019-06-19 Doctor Dung santiago, [facility] 19:35:06 Beacon [facility] CT ABDOMEN PELVIS W CONTRAST 2019-05-20 Jadyn Skaggs versity of 02:03:54 [facility] LIPASE 2019-05-20 Jadyn Skaggs of 01:07:00 [facility] COMP. METABOLIC PANEL ([id number]) 2019-05-20 Jadyn Skaggs Un iversity of 01:07:00 [facility] CBC WITH DIFFERENTIAL 2019-05-20 [facility] 01:07:00 [facility] URINALYSIS 2019-05-20 [facility] of 01:07:00 [facility] NOTICE OF PRIVACY PRACTICES 2019-05-20 Doctor Unassigned, U niversity of 00:08:29 Beacon [facility] CONSENT/REFUSAL FOR DIAGNOSIS AND 2019-05-20 Doctor Dung santiago, [facility] 00:08:14 Beacon [facility] CT ANKLE RIGHT WO CONTRAST 2018-12-[address] [facility] of 16:22:01 [facility] XR FOOT 3+ VW RIGHT 2018-12-01 [facility] o f 19:59:31 [facility] XR TIBIA FIBULA 2 VW RIGHT 2018-12-01 [facility] rsity of 19:59:07 [facility] BASIC METABOLIC PANEL (NA, K, CL, 2018-11-16 [facility] of CO2, GLUCOSE, BUN, CREATININE, CA) 09:31:00 [facility] CBC WITH DIFFERENTIAL 2018-11-16 [facility] of 09:31:00 [facility] ABORH CONFIRMATION 2018-11-16 [facility] of 00:34:00 [facility] URINE CULTURE 2018-11-16 [facility] of 00:00:00 [facility] URINALYSIS 2018-11-15 [facility] of 23:58:00 [facility] TYPE AND SCREEN 2018-11-15 [facility] of 23:00:00 [facility] TROPONIN I 2018-11-15 [facility] of 21:08:00 [facility] LIPID PANEL ([id number])(TOTAL 2018-11-15 [facility] sity of CHOLESTEROL, TRIGLYCERIDES, HDL) 21:08:00 [facility] CT ABDOMEN PELVIS W CONTRAST 2018-11-15 Mariana Ramirez versity of 16:32:45 [facility] HELICOBACTER PYLORI AB, IGG 2018-11-15 [facility] ersity of 15:51:00 [facility] HEPATITIS B SURFACE ANTIBODY 2018-11-15 Mariana Ramirez Uni versity of 15:51:00 [facility] HCV ANTIBODY 2018-11-15 Mariana Ramirez of 15:51:00 [facility] HEPATITIS A VIRUS ANTIBODY IGM 2018-11-15 Mariana Ramirez U niversity of 15:51:00 [facility] HEPATITIS B CORE ANTIBODY IGM 2018-11-15 Mariana Ramirez Un iversity of 15:51:00 [facility] ACETAMINOPHEN 2018-11-15 Mariana Ramirez of 15:50:00 [facility] XR CHEST 1 VW 2018-11-15 Mariana Ramirez of 15:08:18 [facility] LIPASE 2018-11-15 Mariana Ramirez of 14:40:00 [facility] TROPONIN I 2018-11-15 Mariana Ramirez of 14:40:00 [facility] HEPATIC FUNCTION PANEL ([id number]) 2018-11-15 Mariana Ramirez niversity of (ALB,T.PRO,BILI 14:40:00 [facility],BU/BC,ALT,AST,ALK PHOS) Platter BASIC METABOLIC PANEL (NA, K, CL, 2018-11-15 Florina Ramirez [facility] of CO2, GLUCOSE, BUN, CREATININE, CA) 14:40:00 [facility] CBC WITH DIFFERENTIAL 2018-11-15 Mariana Ramirez of 14:40:00 [facility] GLYCOSYLATED HEMOGLOBIN (A1C) 2018-11-15 Maryellen Cummings Un iversity of 14:40:00 [facility] PROTHROMBIN TIME / INR 2018-11-15 Mariana Ramirezit y of 14:40:00 [facility] ACTIVATED PARTIAL THRMPLAS KIMANI 2018-11-15 Mariana Ramirez niversity of 14:40:00 [facility] N-TERMINAL PRO-BNP 2018-11-15 Mariana Ramirez of 14:40:00 [facility] EKG-12 LEAD 2018-11-15 Mariana Ramirez of 14:26:03 [facility] CONSENT/REFUSAL FOR DIAGNOSIS AND 2018-11-15 Doctor Dung santiago, [facility] 14:13:05 Beacon [facility] Plan of Care Planned Activity Planned Date Details Comments Source Future Scheduled 2023-09-01 Screening for malignant [facility] 00:00:00 neoplasm of colon Medical Ce nter (procedure) [code = 257541188] Future Scheduled 2023-09-01 Screening for malignant [facility] 00:00:00 neoplasm of colon Medical Ce nter (procedure) [code = 366937138] Future Scheduled 2023-09-01 Screening for malignant [facility] 00:00:00 neoplasm of colon Medical Ce nter (procedure) [code = 619458285] Future Scheduled 2023-09-01 Screening for malignant [facility] 00:00:00 neoplasm of colon Medical Ce nter (procedure) [code = 386319274] Future Scheduled 2023-09-01 Screening for malignant [facility] 00:00:00 neoplasm of colon Medical Ce nter (procedure) [code = 866214326] Future Scheduled 2023-09-01 Screening for malignant [facility] 00:00:00 neoplasm of colon Medical Ce nter (procedure) [code = 576040471] Future Scheduled 2023-09-01 Screening for malignant [facility] 00:00:00 neoplasm of colon Medical Ce nter (procedure) [code = 036535014] Future Scheduled 2023-09-01 Screening for malignant [facility] 00:00:00 neoplasm of colon Medical Ce nter (procedure) [code = 352608612] Future Scheduled 2023-09-01 Screening for malignant [facility] 00:00:00 neoplasm of colon Medical Ce nter (procedure) [code = 212630965] Future Scheduled 2023-09-01 Screening for malignant [facility] 00:00:00 neoplasm of colon Medical Ce nter (procedure) [code = 021469431] Future Scheduled 2023-09-01 Screening for malignant [facility] 00:00:00 neoplasm of colon Medical Ce nter (procedure) [code = 651560434] Future Scheduled 2023-09-01 Screening for malignant [facility] 00:00:00 neoplasm of colon Medical Ce nter (procedure) [code = 956469876] Future Scheduled 2023-09-01 Screening for malignant [facility] 00:00:00 neoplasm of colon Medical Ce nter (procedure) [code = 174917285] Future Scheduled 2023-09-01 Screening for malignant [facility] 00:00:00 neoplasm of colon Medical Ce nter (procedure) [code = 370307278] Future Scheduled 2023-09-01 Screening for malignant [facility] 00:00:00 neoplasm of colon Medical Ce nter (procedure) [code = 249330902] Future Scheduled 2023-09-01 Screening for malignant [facility] 00:00:00 neoplasm of colon Medical Ce nter (procedure) [code = 231481886] Future Scheduled 2023-09-01 Screening for malignant [facility] 00:00:00 neoplasm of colon Medical Ce nter (procedure) [code = 346720472] Future Scheduled 2023-09-01 Screening for malignant [facility] 00:00:00 neoplasm of colon Medical Ce nter (procedure) [code = 841605005] Future Scheduled 2023-09-01 Screening for malignant [facility] 00:00:00 neoplasm of colon Medical Ce nter (procedure) [code = 448343343] Future Scheduled 2023-09-01 Screening for malignant [facility] 00:00:00 neoplasm of colon Medical Ce nter (procedure) [code = 491717564] Future Scheduled 2023-09-01 Screening for malignant [facility] 00:00:00 neoplasm of colon Medical Ce nter (procedure) [code = 387166340] Future Scheduled 2023-09-01 Screening for malignant [facility] 00:00:00 neoplasm of colon Medical Ce nter (procedure) [code = 364073753] Future Scheduled 2023-02-01 Lipid panel (procedure) [facility] 00:00:00 [code = 86740798] Medical Ce nter Future Scheduled 2023-02-01 Lipid panel (procedure) [facility] 00:00:00 [code = 33461519] Medical Ce nter Future Scheduled 2023-02-01 Lipid panel (procedure) [facility] 00:00:00 [code = 57166221] Medical Ce nter Future Scheduled 2023-02-01 Lipid panel (procedure) [facility] 00:00:00 [code = 04202667] Medical Ce nter Future Scheduled 2023-02-01 Lipid panel (procedure) [facility] 00:00:00 [code = 41183855] Medical Ce nter Future Scheduled 2023-02-01 Lipid panel (procedure) [facility] 00:00:00 [code = 02943957] Medical Ce nter Future Scheduled 2023-02-01 Lipid panel (procedure) [facility] 00:00:00 [code = 34843812] Medical Ce nter Future Scheduled 2023-02-01 Lipid panel (procedure) [facility] 00:00:00 [code = 09683646] Medical Ce nter Future Scheduled 2023-02-01 Lipid panel (procedure) [facility] 00:00:00 [code = 44096913] Medical Ce nter Future Scheduled 2023-02-01 Lipid panel (procedure) [facility] 00:00:00 [code = 78140097] Medical Ce nter Future Scheduled 2023-02-01 Lipid panel (procedure) [facility] 00:00:00 [code = 22882919] Medical Ce nter Future Scheduled 2022-12-14 INFLUENZA [...] (Season Ended)] Future Scheduled 2022-12-14 Influenza Vaccine (#1) [facility]00 [code = Influenza Medical Ce nter Vaccine (#1)] Future Scheduled 2022-04-[address] [...] cervix Medical C enter (procedure) [code = 915403307] Future Scheduled 1983-11-02 Screening for malignant [facility] 00:00:00 neoplasm of cervix Medical C enter (procedure) [code = 838205865] Future Scheduled 1983-11-02 Screening for malignant [facility] 00:00:00 neoplasm of cervix Medical C enter (procedure) [code = 408879827] Future Scheduled 1983-11-02 Screening for malignant [facility] 00:00:00 neoplasm of cervix Medical C enter (procedure) [code = 199131550] Future Scheduled 1983-11-02 Screening for malignant [facility] 00:00:00 neoplasm of cervix Medical C enter (procedure) [code = 511619818] Future Scheduled 1983-11-02 Screening for malignant [facility] 00:00:00 neoplasm of cervix Medical C enter (procedure) [code = 839102578] Future Scheduled 1983-11-02 Screening for malignant [facility] 00:00:00 neoplasm of cervix Medical C enter (procedure) [code = 537725704] Future Scheduled 1983-11-02 Screening for malignant [facility] 00:00:00 neoplasm of cervix Medical C enter (procedure) [code = 360849785] Future Scheduled 1983-11-02 Screening for malignant [facility] 00:00:00 neoplasm of cervix Medical C enter (procedure) [code = 498837844] Future Scheduled 1983-11-02 Screening for malignant [facility] 00:00:00 neoplasm of cervix Medical C enter (procedure) [code = 843380692] Future Scheduled 1983-11-02 Screening for malignant [facility] 00:00:00 neoplasm of cervix Medical C enter (procedure) [code = 377479306] Future Scheduled 1981 DTAP/TDAP/TD VACCINES [facility] I [...] breast Medical C enter (procedure) [code = 106769376] Future Scheduled 1962 CT Colonography (combo) [facility] 00:00:00 [code = CT Colonography [facility] (combo)] Future Scheduled 1962 Screening for malignant [facility] 00:00:00 neoplasm of colon Medical Ce nter (procedure) [code = 699925316] Future Scheduled 1962 Screening for malignant [facility] 00:00:00 neoplasm of colon Medical Ce nter (procedure) [code = 339992305] Future Scheduled 1962 Sigmoidoscopy [facility]code = [facility]] Medical Elizabethe r Future Scheduled 1962 Screening for malignant [facility] 00:00:00 neoplasm of breast Medical C enter (procedure) [code = 329990521] Future Scheduled 1962 CT Colonography (combo) [facility] 00:00:00 [code = CT Colonography [facility] (combo)] Future Scheduled 1962 Screening for malignant [facility] 00:00:00 neoplasm of colon Medical Ce nter (procedure) [code = 266941452] Future Scheduled 1962 Screening for malignant [facility] 00:00:00 neoplasm of colon Medical Ce nter (procedure) [code = 905751739] Future Scheduled 1962 Sigmoidoscopy [facility]code = [facility] S[facility]oscopy] Medical Elizabethe r Future Scheduled 1962 Screening for malignant [facility] 00:00:00 neoplasm of breast Medical C enter (procedure) [code = 367157498] Future Scheduled 1962 CT Colonography (combo) [facility] 00:00:00 [code = CT Colonography [facility] (combo)] Future Scheduled 1962 Screening for malignant [facility] 00:00:00 neoplasm of colon Medical Ce nter (procedure) [code = 605233047] Future Scheduled 1962 Screening for malignant [facility] 00:00:00 neoplasm of colon Medical Ce nter (procedure) [code = 962961077] Future Scheduled 1962 [facility]oscopy [facility] Screening for malignant [facility] 00:00:00 neoplasm of breast Medical C enter (procedure) [code = 185496564] Future Scheduled 1962 CT Colonography (combo) [facility] 00:00:00 [code = [facility] ([facility] Future Scheduled 1962 Screening for malignant [facility] 00:00:00 neoplasm of colon Medical Ce nter (procedure) [code = 288712940] Future Scheduled 1962 Screening for malignant [facility] 00:00:00 neoplasm of colon Medical Ce nter (procedure) [code = 957973828] Future Scheduled 1962 S[facility]oidoscopy [facility]code [facility] S[facility]oscopy] Medical Elizabethe r Future Scheduled 1962 Screening for malignant [facility] 00:00:00 neoplasm of breast Medical C enter (procedure) [code = 585677488] Future Scheduled 1962 CT Colonography (combo) [facility] 00:00:00 [code = CT [facility] ([facility])] Future Scheduled 1962 Screening for malignant [facility] 00:00:00 neoplasm of colon Medical Ce nter (procedure) [code = 374251361] Future Scheduled 1962 Screening for malignant [facility] 00:00:00 neoplasm of colon Medical Ce nter (procedure) [code = 872016800] Future Scheduled 1962 S[facility]oidoscopy [facility]code = [facility]oscopy] Medical Elizabethe r Future Scheduled 1962 Screening for malignant [facility] 00:00:00 neoplasm of breast Medical C enter (procedure) [code = 148803437] Future Scheduled 1962 CT Colonography (combo) [facility] 00:00:00 [code = CT [facility] ([facility])] Future Scheduled 1962 Screening for malignant [facility] 00:00:00 neoplasm of colon Medical Ce nter (procedure) [code = 459077172] Future Scheduled 1962 Screening for malignant [facility] 00:00:00 neoplasm of colon Medical Ce nter (procedure) [code = 889861011] Future Scheduled 1962 [facility]oscopy [facility] Screening for malignant [facility] 00:00:00 neoplasm of breast Medical C enter (procedure) [code = 267847254] Future Scheduled 1962 CT Colonography (combo) [facility] 00:00:00 [code = CT Colonography [facility] (combo)] Future Scheduled 1962 Screening for malignant [facility] 00:00:00 neoplasm of colon Medical Ce nter (procedure) [code = 560358974] Future Scheduled 1962 Screening for malignant [facility] 00:00:00 neoplasm of colon Medical Ce nter (procedure) [code = 399747850] Future Scheduled 1962 S[facility]oidoscopy [facility] Screening for malignant [facility] 00:00:00 neoplasm of breast Medical C enter (procedure) [code = 234691556] Future Scheduled 1962 CT Colonography (combo) [facility] 00:00:00 [code = CT Colonography [facility] (combo)] Future Scheduled 1962 Screening for malignant [facility] 00:00:00 neoplasm of colon Medical Ce nter (procedure) [code = 513197113] Future Scheduled 1962 Screening for malignant [facility] 00:00:00 neoplasm of colon Medical Ce nter (procedure) [code = 590415370] Future Scheduled 1962 S[facility]oidoscopy [facility]code [facility] Screening for malignant [facility] 00:00:00 neoplasm of breast Medical C enter (procedure) [code = 015632129] Future Scheduled 1962 CT Colonography (combo) [facility] 00:00:00 [code = CT Colonography [facility] (combo)] Future Scheduled 1962 Screening for malignant [facility] 00:00:00 neoplasm of colon Medical Ce nter (procedure) [code = 085758926] Future Scheduled 1962 Screening for malignant [facility] 00:00:00 neoplasm of colon Medical Ce nter (procedure) [code = 130070659] Future Scheduled 1962 Sigmoidoscopy [facility]code [facility] S[facility]oscopy] Medical Cente r Future Scheduled 1962 Screening for malignant [facility] 00:00:00 neoplasm of breast Medical C enter (procedure) [code = 130231170] Future Scheduled 1962 CT Colonography (combo) [facility] 00:00:00 [code = CT [facility] ([facility])] Future Scheduled 1962 Screening for malignant [facility] 00:00:00 neoplasm of colon Medical Ce nter (procedure) [code = 672903480] Future Scheduled 1962 Screening for malignant [facility] 00:00:00 neoplasm of colon Medical Ce nter (procedure) [code = 485123514] Future Scheduled 1962 Sigmoidoscopy [facility]code [facility] S[facility]oscopy] Medical Cente r Future Scheduled 1962 Screening for malignant [facility] 00:00:00 neoplasm of breast Medical C enter (procedure) [code = 990262583] Future Scheduled 1962 CT Colonography (combo) [facility] 00:00:00 [code = CT [facility] ([facility]bo)] Future Scheduled 1962 Screening for malignant [facility] 00:00:00 neoplasm of colon Medical Ce nter (procedure) [code = 872534966] Future Scheduled 1962 Screening for malignant [facility] 00:00:00 neoplasm of colon Medical Ce nter (procedure) [code = 638642486] Future Scheduled 1962 Sigmoidoscopy [facility]code [facility] S[facility]oscopy] Medical Cente r Encounters Start End Encounter Admission Attending Care Care Encounter Source Date/Time Date/Time Type Type Clinicians Facility Department ID 2022-07-26 [facility] [id number] Common 10:48:01 Belinda [id number] [facility] 2022-05-16 Outpatient Osman, STLMLC STLMLC [id number] Common 14:15:01 Belinda [id number] [facility] 2022-02-26 Outpatient Slade, Na STLMLC STLMLC [id number] 2 Common 11:44:00 [facility] 2022-02-22 Outpatient Slade, Na STLMLC STLMLC [id number] 2 Common 15:04:00 [facility] 2022-01-10 Outpatient Slade, Na STLMLC STLMLC [id number] 2 Common 11:30:01 [facility] 2021-12-29 Outpatient Slade, Na STLMLC STLMLC [id number] 2 Common 09:54:01 [facility] 2021-12-26 Outpatient Slade, Na STLMLC STLMLC [id number] 2 Common 08:22:00 [facility] 2021-12-22 Outpatient Slade, Na STLMLC STLMLC [id number] 2 Common 08:47:00 [facility] 2021-09-19 Outpatient Slade, Na STLMLC STLMLC [id number] 2 Common 13:44:00 [facility] 2021-08-16 Outpatient Slade, Na STLMLC STLMLC [id number] 2 Common 08:30:01 [facility] 2021-06-14 Outpatient Slade, Na STLMLC STLMLC [id number] 2 Common 10:15:02 [facility] 2021-05-25 Outpatient R ANANYA, [facility] JARROD [id number] Univers 16:04:35 [facility] 2021-05-10 Outpatient Slade, Na STLMLC STLMLC [id number] 2 Common 14:36:16 [facility] 2021-05-10 Outpatient Slade, Na STLMLC STLMLC [id number] 2 Common 14:35:31 [facility] 2021-05-10 Outpatient Slade, Na STLMLC STLMLC [id number] 2 Common 14:33:15 [facility] 2021-05-10 Outpatient Slade, Na STLMLC STLMLC [id number] 2 Common 14:26:40 [id number] [facility] 2021-05-10 Outpatient Slade, Na STLMLC STLMLC [id number] 2 Common 14:26:20 [id number] [facility] 2021-05-10 Outpatient Slade, Na STLMLC STLMLC [id number] 2 Common 13:09:45 [id number] [facility] 2021-05-10 Outpatient Slade, Na STLMLC STLMLC [id number] 2 Common 12:53:19 [id number] [facility] 2021-05-10 Outpatient Slade, Na STLMLC STLMLC [id number] 2 Common 12:44:09 [id number] [facility] 2021-05-10 Outpatient Slade, Na STLMLC STLMLC [id number] 2 Common 12:41:43 [id number] [facility] 2021-05-10 Outpatient Slade, Na STLMLC STLMLC [id number] 2 Common 12:14:04 [id number] [facility] 2021-05-10 Outpatient Slade, Na STLMLC STLMLC [id number] 2 Common 12:09:45 [id number] [facility] 2021-05-10 Outpatient Slade, Na STLMLC STLMLC [id number] 2 Common 12:08:20 [id number] [facility] 2021-05-10 Outpatient Slade, Na STLMLC STLMLC [id number] 2 Common 11:31:43 [id number] [facility] 2021-05-10 Outpatient Slade, Na STLMLC STLMLC [id number] 2 Common 11:27:56 [id number] [facility] 2021-05-10 Outpatient Slade, Na STLMLC STLMLC [id number] 2 Common 11:27:26 [id number] [facility] [facility] 2021-05-10 Outpatient Slade, Na STLMLC STLMLC [id number] Common 11:16:24 [id number] [facility] 2021-04-12 Outpatient R KODI [facility] [id number] Univers 10:13:10 Kike ARIK ity of [facility] 2021-02-12 Outpatient R KEIRA [facility] JARROD [id number] Univers 02:51:20 MOISE ity of [facility] 2021-02-11 Emergency [facility] [id number] Univers 18:57:51 ity of [facility] 2021-02-11 Emergency [facility] [id number] Univers 10:52:36 ity of [facility] 2021-02-10 Emergency [facility] [id number] Univers 23:34:27 ity of [facility] 2021-02-10 Emergency [facility] [id number] Univers 16:03:46 ity of [facility] 2021-02-09 Emergency [facility] [id number] Univers 14:07:13 ity of [facility] 2021-02-09 Emergency [facility] [id number] Univers 13:02:51 ity [facility] 2021-01-21 Outpatient PENNY, SLE Surgery [id number] SLEH 22:26:45 GOTTI 2021-01-21 Inpatient ER GOPI BRAULIO [facility] Gastro [id number] SLEH 22:24:24 2021-01-21 Outpatient PENNY, SLEH Surgery [id number] SLE 18:10:30 [facility] 2020-08-26 Inpatient ER NGUYỄN, BRAULIO [facility] [id number] SLEH 02:30:00 2022-08-01 2022-08-01 Transition NHAN [facility] 1.2.840.114 [id number] Univers 00:00:00 00:00:00 of Care Kalpesh WILLS 350.1.13.10 ity of [place] 4.2.7.2.686 Jeffery mason [id number] [place] [address] [address] 2022-07-30 2022-07-31 Outpatient X ALISSA [facility] [id number] Univers 15:34:00 16:15:00 MARIE ity [facility] 2022-07-30 2022-07-31 Emergency Mariana Ramirez [facility] 1.2.840. 114 [id number] Univers 15:34:00 16:15:00 Marie Maxwell 350.1.13.10 ity of Madhav Nicole 4.2.7.2.686 [facility] [phone] [facility] [address] 2022-05-16 2022-05-16 (TEL) STLMLC STLMLC [id number] Co mmon 00:00:00 00:00:00 [facility] 2022-04-27 2022-04-27 Transition NHAN Hussein 1.2.840.114 [id number] Univers 00:00:00 00:00:00 of Juan Lanny ELMA 350.1.13.10 it y of [place] 4.2.7.2.686 [facility] [phone] [facility] [address] 2022-04-25 2022-04-26 Outpatient X MICAELA [facility] [id number] Univers 16:51:00 16:15:00 PASHA ity of [facility] 2022-04-25 2022-04-26 Emergency Jadyn Skaggs [facility] 1.2.840. 114 [id number] Univers 16:51:00 16:15:00 Rigoberto Menendez 350.1.13.10 ity of Pasha Hinojosa 4.2.7.2.686 [facility] [id number] [facility] [address] 2022-04-08 2022-04-08 Emergency X AUFDERHEIDE [facility] ERT [id number] Univers 13:18:00 15:19:00 , JUDY ity of [facility] 2022-04-08 2022-04-08 Emergency Aufderheide [facility] 1.2.840.114 [id number] Univers 13:18:00 15:19:00 , Judy MARCUM 350.1.13.10 i ty of [place] 4.2.7.2.686 [place] [id number] [facility] [address] 2022-03-27 2022-03-27 (TEL) STLMLC STLMLC [id number] Co mmon 00:00:00 00:00:00 [facility] 2022-03-05 2022-03-05 (TEL) STLMLC STLMLC [id number] Co mmon 00:00:00 00:00:00 [facility] 2022-02-28 2022-02-28 (TEL) STLMLC STLMLC [id number] Co mmon 00:00:00 00:00:00 [facility] 2022-02-22 2022-02-22 OFFICE STLMLC STLMLC [id number] Co mmon 00:00:00 00:00:00 VISIT [facility] it PT LEVEL 4 [facility] 2022-02-21 2022-02-21 (TEL) STLMLC STLMLC [id number] Co mmon 00:00:00 00:00:00 [facility] 2022-02-08 2022-02-08 (TEL) STLMLC STLMLC [id number] Co mmon 00:00:00 00:00:00 [facility] 2022-02-07 2022-02-07 Transition SHANNAN HusseinLisa 1.2.840.114 [id number] Univers 00:00:00 00:00:00 of Juan CASILLASY 350.1.13.10 it y JOSELYN 4.2.7.2.686 [facility] [id number] [facility] [address] 2022-02-03 2022-02-06 Outpatient X ALISSA DCMICHOACANO [facility] [id number] Univers 10:41:00 19:47:00 ELYSSA li [facility] 2022-02-03 2022-02-06 [facility] Nguyễn Montano [facility] 1.2.840.11 [id number] Univers 10:41:00 19:47:00 Encounter Elyssa Maxwell 350.1.13.10 ity [facility] 4.2.7.2.686 [facility] [id number] [facility] [address] 2022-02-01 2022-02-01 (TEL) STLMLC STLMLC [id number] Co mmon 00:00:00 00:00:00 [facility] 2022-01-26 2022-01-26 Emergency X [facility] E[facility] [id number] Univers 15:28:00 19:45:00 MEKA shey [facility] 2022-01-26 2022-01-26 Emergency [facility] 1.2.524.738 [id number] Univers 15:28:00 19:45:00 Meka MARCUM 350.1.13.10 ity of [place] 4.2.7.2.686 [facility] [id number] [facility] [address] 2022-01-10 2022-01-10 (TEL) STLC STLC [id number] Co mmon 00:00:00 00:00:00 [facility] 2022-01-02 2022-01-02 Outpatient R [facility] [id number] Univers 10:00:00 10:00:00 VIRA [facility] 2022-01-02 2022-01-02 Orders Doctor JAQUELIN 1.2.840.114 [id number] Univers 00:00:00 00:00:00 Only Unassigned, BIANCA 350.1.13.10 ity of [facility] 4.2.7.2.[address] [place] [address] [phone] [facility] [address] 2021-12-13 2021-12-13 (TEL) STLMLC STLMLC [id number] Co mmon 00:00:00 00:00:00 [facility] 2021-11-13 2021-11-13 (TEL) STLMLC STLC [id number] Co mmon 00:00:00 00:00:00 [facility] 2021-11-02 2021-11-02 Emergency X [facility] ERT [id number] Univers 04:35:00 08:22:00 MARIANA [facility] 2021-11-02 2021-11-02 Emergency [facility] 1.2.709.015 [id number] Univers 04:35:00 08:22:00 Mariana MARCUM 350.1.13.10 i ty of [facility] 4.2.7.2.686 [facility] [id number] [facility] [address] 2021-10-25 2021-10-25 Orders Doctor JAQUELIN 1.2.840.114 [id number] Univers 00:00:00 00:00:00 Only Unassigned, BIANCA 350.1.13.10 ity of [place] [facility] 4.2.7.2.686 Archie [id number] [facility] [address] 2021-10-19 2021-10-19 (TEL) STLMLC STLMLC [id number] Co mmon 00:00:00 00:00:00 [facility] 2021-10-18 2021-10-18 (TEL) STLMLC STLMLC [id number] Co mmon 00:00:00 00:00:00 [facility] 2021-10-06 2021-10-06 (TEL) STLMLC STLMLC [id number] Co mmon 00:00:00 00:00:00 [facility] 2021-09-29 2021-09-29 [facility] [id number] Univers 06:25:00 10:55:00 ZULEMA itshey of [facility] 2021-09-29 2021-09-29 [facility] 1.2.840.114 [id number] Univers 06:25:00 10:55:00 Encounter Zulema MARCUM 350.1.13.10 ity of [place] 4.2.7.2.686 [facility] SURGICAL [id number] [facility] [address] 2021-09-29 2021-09-29 Surgery [facility] 1.2.840.114 [id number] Univers 07:45:00 10:15:00 Zulema MARCUM 350.1.13.10 ity of [place] 4.2.7.2.686 [facility] SURGICAL [id number] [facility] [address] 2021-09-29 2021-09-29 Anesthesia Abe Arana [facility] 1.2.840.11 [id number] Univers 07:57:00 09:44:00 Event Elyssa Jerome 350.1.13.10 ity of [place] [id number] [facility] [address] 2021-09-29 2021-09-29 Orders Doctor JAQUELIN 1.2.840.114 [id number] Univers 00:00:00 00:00:00 Only Unassigned, BIANCA 350.1.13.10 ity of [place] [facility] 4.2.7.2.686 Archie as [phone] [facility] [address] 2021-09-27 2021-09-27 Laboratory Only, Adc Test [facility] 1.2.840. 114 [id number] Univers 08:30:00 08:45:00 Only Zulema Rodriguez 350.1.13.10 ity of [place] 4.2.7.2.686 [place] [id number] [facility] [address] 2021-09-27 2021-09-27 Outpatient R JENNIFER DENNY, [facility] [id number] Univers 08:30:00 08:30:00 ZULEMA li [facility] 2021-09-27 2021-09-27 Staffing Administrator Elizabeth, Adc Lab Main [facility] 1.2.8 40.114 [id number] Univers 08:15:00 08:30:00 Visit Zulema Rodriguez 350.1.13.10 ity of [place] 4.2.7.2.686 [place] [id number] [facility] 353 [facility] 2021-09-27 2021-09-27 Orders Doctor HAMMER 1.2.840.114 [id number] Univers 00:00:00 00:00:00 Only Unassigned, BIANCA 350.1.13.10 ity of [place] [facility] 4.2.7.2.686 Archie as [id number] [facility] [address] 2021-09-21 2021-09-21 [facility] [id number] Co mmon 00:00:00 00:00:00 VISIT Richie ESTAB PT - CHI LEVEL 4 [facility] 2021-09-12 2021-09-12 Transition NHAN Abdi 1.2.840.114 [id number] Univers 00:00:00 00:00:00 of Care Cyn Steiner ELMA 350.1.13.10 i ty of [place] 4.2.7.2.686 [facility] [phone] [facility] [address] 2021-09-01 2021-09-08 Inpatient X ALISHA [facility] [id number] Univers 13:22:00 17:57:00 RAF ity [facility] 2021-09-01 2021-09-08 [facility] Jaki Polanco 1.2.840.1 [id number] Univers 13:22:00 17:57:00 Encounter Raf Greene BIANCA 350.1.1 3.10 ity of [facility] 4.2.7.2.686 [place] [id number] [facility] [address] 2021-09-08 2021-09-08 (TEL) STLC STLC [id number] Co mmon 00:00:00 00:00:00 [facility] 2021-08-27 2021-08-27 Emergency [facility] [id number] Univers 10:45:00 15:33:00 MARU li [facility] 2021-08-27 2021-08-27 Emergency [facility] 1.2.840.114 [id number] Univers 10:45:00 15:33:00 Maru MARCUM 350.1.13.10 ity of [facility] 4.2.7.2.686 [facility] [id number] [facility] [address] 2021-08-25 2021-08-25 (TEL) STLMLC STLMLC [id number] Co mmon 00:00:00 00:00:00 [facility] 2021-08-22 2021-08-22 (TEL) STLMLC STLMLC [id number] Co mmon 00:00:00 00:00:00 [facility] 2021-08-07 2021-08-07 OFFICE STLMLC STLMLC [id number] Co mmon 00:00:00 00:00:00 VISIT EST Spir it PT LEVEL 3 - [facility] 2021-08-01 2021-08-01 Transition NHAN Hussein 1.2.840.114 [id number] Univers 00:00:00 00:00:00 of Care Lanny CASILLASY 350.1.13.10 it y of [place].2.7.2.686 [place] [id number] [facility] [address] 2021-08-01 2021-08-01 (TEL) [facility] [id number] Co mmon 00:00:00 00:00:00 [facility] 2021-07-23 2021-07-29 Inpatient X FATOUGAVINO [facility] [id number] Univers 15:34:00 13:50:00 DANIEL li [facility] 2021-07-23 2021-07-29 [facility] Nasra Meka Kaiden [facility] 1.2.840. 114 [id number] Univers 15:34:00 13:50:00 Encounter Pasha Hinojosa 350.1.13.10 ity Daniel Grady 4.2.7.2.686 [facility] [id number] [facility] [address] 2021-07-04 2021-07-04 Outpatient R [facility] JARROD [id number] Univers 10:42:00 13:20:00 GULSHAN li [facility] 2021-07-04 2021-07-04 [facility] 1.2.031.167 [id number] Univers 10:42:00 13:20:00 Encounter Gulshan MARCUM 350.1.13.10 ity mary [place]2.7.2.[place] SUR[place]ICAL [phone] [facility] [address] 2021-07-04 2021-07-04 Surgery [facility] 1.2.840.114 [id number] Univers 12:00:00 12:39:00 Gulshan MARCUM 350.1.13.10 i ty mary [place] 4.2.7.2.686 [place] SUR[place]ICAL [id number] [facility] [address] 2021-07-04 2021-07-04 Orders Doctor HAMMER 1.2.840.114 [id number] Univers 00:00:00 00:00:00 Only Unassigned, BIANCA 350.1.13.10 ity [facility] 4.2.7.2.686 [place] [phone] [address] 2021-06-15 2021-06-15 OFFICE STLC STLC [id number] Co mmon 00:00:00 00:00:00 VISIT [facility] LEVEL 4 [facility] 2021-06-12 2021-06-12 (TEL) [facility] STLC [id number] Co mmon 00:00:00 00:00:00 [facility] 2021-06-05 2021-06-05 Outpatient R ANANYA, [facility] [id number] Univers 10:30:00 10:30:00 GULSHAN [facility] 2021-06-03 2021-06-03 Emergency [facility] ERT [id number] Univers 14:00:00 22:08:00 MARIANA [facility] 2021-06-03 2021-06-03 Emergency [facility] 1.2.232.278 [id number] Univers 14:00:00 22:08:00 Mariana MARCUM 350.1.13.10 i ty of [address]686 [facility] [phone] [address] 2021-06-01 2021-06-01 (TEL) [facility] STLC [id number] Co mmon 00:00:00 00:00:00 [facility] 2021-05-21 2021-05-22 Emergency X JAROCHO [facility] ERT [id number] Univers 23:29:00 01:11:00 CONSUELO [facility] 2021-05-21 2021-05-22 Emergency [facility] 1.2.840.114 [id number] Univers 23:29:00 01:11:00 Consuelo MARCUM 350.1.13.10 i ty of [place] 4.2.7.2.686 [facility] [id number] [address] 2021-05-19 2021-05-19 JAQUELIN Greene 1.2.840.114 [id number] Univers 00:00:00 00:00:00 (Out) Kelsy VÁZQUEZ 350.1.13.10 it y of [facility] 4.2.7.2.686 Archie as [phone] [facility] [address] 2021-05-19 2021-05-19 Telephone Nurse, Phillip [facility] 1.2.840.114 [id number] Univers 00:00:00 00:00:00 Urgent HEALTH 350.1.13.10 ity of Care [place] 4.2.7.2.686 Archie as GRACIE?BLEA [phone] [address] MEDICAL OFFICE BUILDING 2021-05-18 2021-05-18 Outpatient R JAROCHO [facility] [id number] Univers 09:00:00 09:41:26 RANIA ity [facility] 2021-05-18 2021-05-18 Consuelo Edwards [facility] 1.2.840.114 [id number] Univers 09:00:00 09:20:00 Care Medora, Korina HEALTH 350.1.13.10 ity of [place] 4.2.7.2.686 Archie as GRACIE?BLEA [id number] [address] MEDICAL OFFICE BUILDING 2021-05-18 2021-05-18 Letter Doctor JAQUELIN 1.2.840.114 [id number] Univers 00:00:00 00:00:00 (Out) Unassigned, BIANCA 350.1.13.10 ity of [place] [facility] 4.2.7.2.686 Archie as [phone] [facility] [address] 2021-05-15 2021-05-15 (TEL) STLMLC STLMLC [id number] Co mmon 00:00:00 00:00:00 [facility] 2021-05-09 2021-05-09 (TEL) STLMLC STLMLC [id number] Co mmon 00:00:00 00:00:00 [facility] 2021-04-19 2021-04-19 (TEL) STLMLC STLMLC [id number] Co mmon 00:00:00 00:00:00 [facility] 2021-04-18 2021-04-18 Outpatient R ALOKYUNG [facility] [id number] Univers 10:15:00 10:15:00 ARIK Stokes f [facility] 2021-04-15 2021-04-15 Emergency Jarocho, [facility] 1.2.840.114 [id number] Univers 13:41:00 15:39:00 Michaelrisa [facility] 350.1.13.10 i ty [facility] 4.2.7.2.686 [place] [facility] [id number] [place] [id number] Branch 2021-04-15 2021-04-15 Nurse Nurse, Phillip [facility] 1.2.840.114 [id number] Univers 13:20:00 13:40:00 Visit Manoj Korina [facility] 350.1.13.10 ity [facility] 4.2.7.2.686 Archie as GRACIE?BLEA [phone] [address] MEDICAL OFFICE BUILDING 2021-04-15 2021-04-15 Outpatient R MANOJ [facility] [id number] Univers 13:20:00 13:37:39 KORINA y [facility] 2021-04-15 2021-04-15 Outpatient R [facility] ERT [id number] Univers 13:20:00 13:37:39 KORINA [facility] 2021-04-03 2021-04-03 OFFICE STLMLC STLMLC [id number] Co mmon 00:00:00 00:00:00 VISIT EST Spir it PT LEVEL 3 - [facility] 2021-03-31 2021-03-31 (TEL) STLMLC STLMLC [id number] Co mmon 00:00:00 00:00:00 [facility] 2021-03-28 2021-03-28 (TEL) STLMLC STLMLC [id number] Co mmon 00:00:00 00:00:00 [facility] 2021-03-25 2021-03-25 Emergency X [facility] ERT [id number] Univers 18:03:00 21:41:00 CONSUELO ity [facility] 2021-03-25 2021-03-25 Emergency Ebrahim, [facility] 1.2.840.114 [id number] Univers 18:03:00 21:41:00 Consuelo MARCUM 350.1.13.10 i ty of [facility] 4.2.7.2.686 [facility] [phone] [address] 2021-03-25 2021-03-25 Outpatient R HAKEEM [facility] [id number] Univers 11:40:00 11:23:42 OLGA LIDIA [facility] 2021-03-25 2021-03-25 Imm/Inj Vaccine, Ang Db [facility] 1.2.840 .114 [id number] Univers 11:00:13 11:10:13 Visit Hakeem Olga Lidia [facility] 350.1.13.10 ity of [place] 4.2.7.2.686 Archie as GRACIE?BLEA [id number] [address] MEDICAL OFFICE BUILDING 2021-03-21 2021-03-21 (TEL) [facility] [id number] Co mmon 00:00:00 00:00:00 [facility] 2021-03-20 2021-03-20 Emergency X [facility] ERT [id number] Univers 16:03:00 19:39:00 MEKA jessicashey [facility] 2021-03-20 2021-03-20 Emergency [facility] 1.2.545.406 [id number] Univers 16:03:00 19:39:00 Meka MARCUM 350.1.13.10 ity of [place] 4.2.7.2.686 [facility] [id number] [address] 2021-02-12 2021-02-12 Emergency X ISABELLE [facility] ERT [id number] Univers 14:09:00 21:08:00 ROSALINDA li [facility] 2021-02-12 2021-02-12 Emergency Isabelle [facility] 1.2.663.107 [id number] Univers 14:09:00 21:08:00 Rosalinda MARCUM 350.1.13.10 ity of [facility] 4.2.7.2.686 [facility] [id number] [address] 2021-01-17 2021-01-18 Emergency [facility] 1.2.840.114 [id number] Univers 21:29:00 01:13:00 Maru Marcum 350.1.13.10 ity of [place] 4.2.7.2.686 [facility] [id number] [address] 2021-01-17 2021-01-18 Emergency X [facility] ERT [id number] Univers 21:29:00 01:13:00 MARU ity [facility] 2021-01-17 2021-01-17 Orders Doctor HAMMER 1.2.840.114 [id number] Univers 00:00:00 00:00:00 Only Unassigned, BIANCA 350.1.13.10 ity of [place] [facility] 4.2.7.2.686 Archie as [phone] [facility] [address] 2021-01-07 2021-01-07 [facility] 1.2.539.359 [id number] Univers 11:38:27 23:59:00 Encounter [facility] 350.1.13.10 ity of [place] 4.2.7.2.686 Archie as Gracie?Blea [phone] [facility] [address] Medical Office [facility] 2021-01-07 2021-01-07 [facility] [id number] Univers 11:40:00 11:55:26 [facility] 2021-01-07 2021-01-[address] [facility] 1.2.840.114 [id number] Univers 11:22:24 11:55:26 Care [facility] 350.1.13.10 ity of [place] 4.2.7.2.686 Archie as Gracie?Blea [phone] [facility] [address] Medical Office Building 2021-01-07 2021-01-07 Letter JAQUELIN [place] 1.2.840.114 [id number] Univers 00:00:00 00:00:00 (Out) Karlene VÁZQUEZ 350.1.13.10 i ty [facility] 4.2.7.2.686 Archie as [phone] [facility] [address] 2020-12-30 2020-12-30 Emergency X [facility] ERT [id number] Univers 13:14:00 17:53:00 MARU li [facility] 2020-12-30 2020-12-30 Emergency [facility] 1.2.840.114 [id number] Univers 13:14:00 17:53:00 Maru Marcum 350.1.13.10 ity of [place]2.7.2.[place] [id number] [facility] [address] 2020-12-30 2020-12-30 [facility] 1.2.840.114 [id number] Univers 10:00:12 10:49:11 Visit Vira Marcum 350.1.13.10 ity of [place] 4.2.7.2.686 [place] Profess[place] [id number] Ak dical [facility] 134 [facility] 2020-12-30 2020-12-30 Outpatient R [facility] [id number] Univers 09:30:00 10:49:11 VIRA li [facility] 2020-12-23 2020-12-23 [facility] 1.2.840.114 [id number] Univers 15:59:00 23:59:00 Encounter Vira Marcum [id number] [id number] [phone] [facility] [address] 2020-12-23 2020-12-23 [facility] 1.2.840.114 [id number] Univers 15:59:00 23:59:00 Encounter Vira Marcum [id number] [id number] [phone] [facility] [address] 2020-12-23 2020-12-23 Outpatient R [facility] [id number] Univers 00:00:00 00:00:00 VIRA li [facility] 2020-12-16 2020-12-16 Office Ad, [facility] 1.2.840.114 [id number] Univers 09:56:42 11:11:19 Visit Vira Marcum [id number] [id number] [phone] [place]ical [place] [address] [place] [address] 2020-12-16 2020-12-16 [facility] 1.2.840.114 [id number] Univers 09:56:42 11:11:19 Visit Vira Marcum [id number] [id number] [phone] [place]ical [place] [address] [place] [address] 2020-12-16 2020-12-16 Outpatient R [facility] [id number] Univers 10:00:00 10:00:00 [facility] 2020-12-14 2020-12-14 (TEL) STLMLC STLC [id number] Co mmon 00:00:00 00:00:00 [facility] 2020-12-05 2020-12-05 Emergency [facility] 1.2.840.114 [id number] Univers 14:07:00 18:52:00 Eliana Jodie Chao [id number] [id number] [phone] [facility] [address] 2020-12-05 2020-12-05 Emergency X [facility] ERT [id number] Univers 14:07:00 18:52:00 [facility] 2020-11-10 2020-11-10 Outpatient STLMLC STLMLC [id number] Common 00:00:00 00:00:00 [facility] 2020-10-11 2020-10-12 Emergency James Mariana Cira 1.2.840. 114 [id number] Univers 08:30:00 20:40:00 Kadi Duggan [id number] ity of [facility] [id number] [place] [phone] [place] [address] [place] 2020-10-11 2020-10-12 [facility] [id number] Univers 08:30:00 20:40:00 [facility] 2020-10-12 Emergency Mariana Ramirez 1.2.840. 114 [id number] 08:30:00 20:40:00 [place] Kadi Bianca 350.1.13.10 [facility] 4.2.7.2.686 [id number] 095 2020-10-04 2020-10-04 Emergency [facility] 1.2.720.873 [id number] [facility] 17:45:00 20:23:00 Maisha Marcum 350.1.13.10 i [facility] 4.2.7.2.686 [facility] [id number] [address] 2020-10-04 2020-10-04 Emergency X [facility] ERT [id number] Univers 17:45:00 20:23:00 MAISHA [facility] 2020-10-04 2020-10-04 Emergency [facility] 1.2.848.539 [id number] 17:45:00 20:23:00 Maisha Colette Marcum 350.1.13.10 [place] 4.2.7.2.686 [place] [id number] 084 2020-09-30 2020-09-30 Outpatient STLMLC STLMLC [id number] Common 00:00:00 00:00:00 [facility] 2020-09-29 2020-09-29 Outpatient STLMLC STLMLC [id number] Common 00:00:00 00:00:00 [facility] 2020-09-19 2020-09-19 Outpatient STLMLC STLMLC [id number] Common 00:00:00 00:00:00 [facility] 2020-09-16 2020-09-16 Outpatient STLMLC STLMLC [id number] Common 00:00:00 00:00:00 [facility] 2020-09-02 2020-09-02 Outpatient STLMLC STLMLC [id number] Common 00:00:00 00:00:00 [facility] 2020-08-05 2020-08-05 Emergency [facility] 1.2.840.114 [id number] Univers 08:16:00 09:12:00 Maru Marcum 350.1.13.10 ity [place] 4.2.7.2.686 [facility] [phone] [address] 2020-08-05 2020-08-05 Emergency X [facility] ERT [id number] Univers 08:16:00 09:12:00 MARU itshey [facility] 2020-08-05 2020-08-05 Emergency [facility] 1.2.840.114 [id number] 08:16:00 09:12:00 Maru Marcum 350.1.13.10 [place] [address] [place] [address] [id number] [facility] 2020-07-19 2020-07-19 Outpatient Colette [facility] [id number] Univers 11:20:00 11:11:33 SULAIMAN itshey [facility] 2020-07-18 2020-07-18 [facility] 1.2.840.114 [id number] Univers 06:28:00 08:29:00 Encounter Moies [place] 350.1.13.10 ity [place] 4.2.7.2.686 [facility] Surgical [phone] [address] 2020-07-18 2020-07-18 [facility] 1.2.840.114 [id number] 06:28:00 08:29:00 Encounter Moise [place] 350.1.13.10 [place] 4.2.7.2.686 Surgical [id number] [place] [address] 2020-07-18 2020-07-18 Surgery [facility] 1.2.830.350 [id number] Univers 07:30:00 08:00:00 Moiserichard [place] 350.1.13.10 it[place] [id number] [facility] [address] 2020-07-18 2020-07-18 Surgery [facility] 1.2.840.114 [id number] 07:30:00 08:00:00 Chao 350.1.13.10 [place] 4.2.7.2.686 Surgical [id number] [place] [address] 2020-07-15 2020-07-15 Outpatient Colette GAMEZ [facility] [id number] Univers 08:00:00 08:00:00 MOISE ity [facility] 2020-07-11 2020-07-11 Outpatient Colette MARSH [facility] [id number] Univers 12:00:00 12:00:00 SULAIMAN [facility] 2020-07-08 2020-07-08 Outpatient Colette MARSH [facility] [id number] Univers 10:40:00 10:40:00 SULAIMAN [facility] 2020-07-07 2020-07-07 Emergency Collin, K [facility] 1.2.840.114 [id number] Univers 18:47:00 22:05:00 Sydnie Marcum 350.1.13.10 i [place] [phone] [address] 2020-07-07 2020-07-07 Emergency X COLLIN, K [facility] ERT [id number] Univers 18:47:00 22:05:00 ity [facility] 2020-07-07 2020-07-07 Emergency Collin, K [facility] 1.2.840.114 [id number] 18:47:00 22:05:00 Sydnie Marcum 350.1.13.10 [place] 4.2.7.2.686 [place] [id number] [facility] 2020-07-07 2020-07-07 Orders Doctor HAMMER 1.2.840.114 [id number] Univers 00:00:00 00:00:00 Only Unassigned, BIANCA 350.1.13.10 ity of [place] [facility] 4.2.7.2.686 Archie as [phone] [facility] [address] 2020-07-07 2020-07-07 Outpatient STLMLC STLMLC [id number] Common 00:00:00 00:00:00 [facility] 2020-07-07 2020-07-07 Orders Doctor JAQUELIN 1.2.840.114 [id number] 00:00:00 00:00:00 Only Unassigned, BIANCA 350.1.13.10 [facility] 4.2.7.2.686 [id number] 009 2020-07-04 2020-07-04 [facility] 1.2.840.114 [id number] Univers 06:30:00 08:44:00 Encounter Moise Maxine Chao 350.1.13.10 it[place] [id number] [place] [address] 2020-07-04 2020-07-[address] [facility] [place] JARROD [id number] Univers 06:30:00 08:44:00 MOISE ity of [facility] 2020-07-04 2020-07-04 [facility] 1.2.840.114 [id number] 06:30:00 08:44:00 Encounter Moise Maxine Chao 350.1.13.10 [place] 4.2.7.2.686 Surgical [id number] [place] [address] 2020-07-04 2020-07-04 Orders Doctor JAQUELIN 1.2.840.114 [id number] Univers 00:00:00 00:00:00 Only Unassigned, BIANCA 350.1.13.10 ity of [place] [facility] 4.2.7.2.686 Archie as [phone] [facility] [address] 2020-07-04 2020-07-04 Orders Doctor JAQUELIN 1.2.840.114 [id number] 00:00:00 00:00:00 Only Unassigned, BIANCA 350.1.13.10 [facility] 4.2.7.2.686 [id number] 009 2020-07-01 2020-07-01 Laboratory Only, Adc Test [facility] 1.2.840. 114 [id number] Univers 09:02:10 09:17:10 Only Moise Gamez 350.1.13.1 0 ity of [place] [phone] [facility] [address] 2020-07-01 2020-07-01 Laboratory Only, [facility] 1.2.840.114 [id number] 09:02:10 09:17:10 Only Test [place] 350.1.13.10 [place] 4.2.7.2.686 [place] [id number] 353 2020-07-01 2020-07-01 [facility] [id number] Univers 08:30:00 08:30:00 MOISE ity of [facility] 2020-07-01 2020-07-01 Orders Doctor HAMMER 1.2.840.114 [id number] Univers 00:00:00 00:00:00 Only Unassigned, BIANCA 350.1.13.10 it[place] of [place] [facility] 4.2.7.2.686 Archie as [id number] [facility] [address] 2020-07-01 2020-07-01 Orders Doctor JAQUELIN 1.2.840.114 [id number] 00:00:00 00:00:00 Only Unassigned, BIANCA 350.1.13.10 [place] [facility] 4.2.7.2.686 [id number] 009 2020-06-30 2020-06-30 Outpatient STLMLC STLC [id number] Common 00:00:00 00:00:00 [facility] 2020-06-22 2020-06-22 Outpatient STLC STLC [id number] Common 00:00:00 00:00:00 [facility] 2020-06-20 2020-06-20 [facility] 1.2.840.114 [id number] Univers 06:29:00 08:58:00 Encounter Moise Marcum 350.1.13.10 it[place] of [place] [id number] [place] [address]111 [address] 2020-06-20 2020-06-20 Outpatient R [facility] JARROD [id number] Univers 06:29:00 08:58:00 MOISE ity [facility] 2020-06-20 2020-06-20 [facility] 1.2.840.114 [id number] 06:29:00 08:58:00 Encounter Moise [place] Chao 350.1.13.10 [place] 4.2.7.2.686 Surgical [id number] [place] [address] 2020-06-20 2020-06-20 Anest[facility] 1.2.840.11 [id number] [facility] 08:03:00 08:12:00 Event Dominguez Seo 350.1.13.10 ity of [place] [phone] [facility] [address] 2020-06-20 2020-06-20 Anesthesia Donavan [facility] 1.2.840.11 [id number] 08:03:00 08:12:00 Event Dominguez Seo 350.1.13.10 [place] 4.2.7.2.686 Surgical [id number] [place] [address] 2020-06-20 2020-06-20 Orders Doctor HAMMER 1.2.840.114 [id number] Univers 00:00:00 00:00:00 Only Unassigned, BIANCA 350.1.13.10 ity of [place] [facility] 4.2.7.2.686 Ar[place] as [id number] [address] 2020-06-20 2020-06-20 Orders Doctor HAMMER 1.2.840.114 [id number] 00:00:00 00:00:00 Only Unassigned, BIANCA 350.1.13.10 [facility] 4.2.7.2.686 [id number] 009 2020-06-19 2020-06-19 Outpatient [facility] [id number] Univers 08:15:00 08:15:00 ity [facility] 2020-06-17 2020-06-17 Staffing Administrator Elizabeth, Adc Lab Main [facility] 1.2.8 40.114 [id number] [facility] 15:27:53 15:42:53 Visit Moise Gamez 350.1.13.1 0 ity of [place] Profess[place] [phone] Ak dical [address] 2020-06-17 2020-06-17 Staffing Administrator Elizabeth, [facility] 1.2.840.114 [id number] 15:27:53 15:42:53 Visit Lab Main [place] 350.1.13.10 [place] 4.2.7.2.686 Professio [phone] [address] 2020-06-17 2020-06-17 Laboratory Only, [facility] Test [facility] 1.2.840. 114 [id number] [facility] 15:26:19 15:41:19 Only Moise Gamez 350.1.13.1 0 ity of [place].2.[place] [id number] [address] 2020-06-17 2020-06-17 Laboratory Only, [facility] 1.2.840.114 [id number] 15:26:19 15:41:19 Only Test [place] 350.1.13.10 [place] 4.2.7.2.686 [place] [id number] [facility] 2020-06-17 2020-06-17 Outpatient R KEIRA [facility] [id number] Univers 12:30:00 12:30:00 MOISE ity of [facility] 2020-06-17 2020-06-17 Orders Doctor HAMMER 1.2.840.114 [id number] Univers 00:00:00 00:00:00 Only Unassigned, BIANCA 350.1.13.10 ity of [place] [facility] 4.2.7.2.686 Archie as [id number] [address] 2020-06-17 2020-06-17 Orders Doctor HAMMER 1.2.840.114 [id number] 00:00:00 00:00:00 Only Unassigned, BIANCA 350.1.13.10 [facility] 4.2.7.2.686 [id number] 009 2020-05-22 2020-05-22 Outpatient R SALMA, [facility] [id number] Univers 08:50:00 08:50:00 SULAIMAN ity [facility] 2020-05-06 2020-05-06 Emergency Ron, [facility] 1.2.840.114 [id number] Univers 15:21:00 18:38:00 Kirstin Marcum 350.1.13.10 i ty of [place].7.2.[place] [phone] [facility] [address] 2020-05-06 2020-05-06 Emergency Ron, [facility] 1.2.840.114 [id number] 15:21:00 18:38:00 Kirstin Marcum 350.1.13.10 [place] 4.2.7.2.686 [place] [id number] 084 2020-05-04 2020-05-04 Outpatient R [facility] [id number] Univers 09:20:00 09:20:00 ity [facility] 2020-05-04 2020-05-04 Laboratory Lab, [facility] Fam Pob I [facility] 1.2. 840.114 [id number] [facility] 08:54:13 09:14:13 Only [facility]kin [facility] 350.1.13.10 ity of [place] 4.2.7.2.686 Archie as Professio [phone] Ak dical [address] Office [address] [employer] 2020-05-04 2020-05-04 Laboratory Lab, [facility] 1.2.840.114 [id number] 08:54:13 09:14:13 Only Fam Pob I Health 350.1.13.10 [place] 4.2.7.2.686 Professio [id number] nal [facility] 2020-04-14 2020-04-14 Letter Jeannie Slade 1.2.840.114 [id number] Univers 00:00:00 00:00:00 (Out) BIANCA 350.1.13.10 it y of [facility] 4.2.7.2.686 Archie as [phone] [facility] [address] 2020-04-14 2020-04-14 Letter Jeannie Slade 1.2.840.114 [id number] 00:00:00 00:00:00 (Out) BIANCA 350.1.13.10 [facility] 4.2.7.2.686 [id number] 043 2020-03-25 2020-03-26 Emergency Critical access hospital 1.2.708.982 [id number] [facility] 21:13:00 02:01:00 Gabriele Marcum 350.1.13.10 ity of [place] 4.2.7.2.686 [facility] [phone] [facility] [address] 2020-03-25 2020-03-26 Emergency Critical access hospital 1.2.367.895 [id number] 21:13:00 02:01:00 Gabriele [place] 350.1.13.10 [place] 4.2.7.2.686 [place] [phone] [facility] 2020-03-18 2020-03-18 Orders Doctor HAMMER 1.2.840.114 [id number] Univers 00:00:00 00:00:00 Only Unassigned, BIANCA 350.1.13.10 ity of [place] [facility] 4.2.7.2.[address] [facility] [place] [phone] [facility] [address] 2020-03-18 2020-03-18 Orders Doctor HAMMER 1.2.840.114 [id number] 00:00:00 00:00:00 Only Unassigned, BIANCA 350.1.13.10 [place] [facility] 4.2.7.2.686 [id number] 009 2020-03-08 2020-03-08 Outpatient [facility] [id number] Common 00:00:00 00:00:00 [facility] 2020-03-07 2020-03-07 Outpatient [facility] [id number] Common 00:00:00 00:00:00 [facility] 2020-01-31 2020-02-08 [facility] 1.2.840.1 14 [id number] [facility] 10:39:00 16:12:00 Encounter Kirstin Ron [facility] 350.1.13.10 ity of [place] 4.2.7.2.686 [facility] [id number] Ak indiana Mcdermott Kobi [place] [address] [address] ([facility]) 2020-01-31 2020-02-08 [facility] 1.2.840.1 14 [id number] 10:39:00 16:12:00 Encounter Kirstin Ron [facility] 350.1.13.10 [place] 4.2.7.2.686 [facility] [phone] [place] [address] ([facility]) 2020-01-11 2020-01-11 Outpatient STLMLC STLMLC [id number] Common 00:00:00 00:00:00 [facility] 2020-01-06 2020-01-06 Outpatient STLMLC STLMLC [id number] Common 00:00:00 00:00:00 [facility] 2019-12-18 2019-12-18 Emergency [facility] 1.2.026.410 [id number] [facility] 15:26:00 19:16:00 Meka Richey [place] 350.1.13.10 ity of [place] 4.2.7.[address] [place] [phone] 2019-12-18 2019-12-18 Emergency [facility] 1.2.427.807 [id number] 15:26:00 19:16:00 Meka [place] 350.1.13.10 [place] 4.2.7.2.686 [place] [id number] 4 2019-11-05 2019-11-05 (TEL) STLMLC STLC [id number] Co mmon 00:00:00 00:00:00 [facility] 2019-10-06 2019-10-06 [facility] [id number] Common 10:40:00 10:40:00 t [employer] [facility] it Drive [facility] 2019-09-17 2019-09-17 Out[facility] [id number] Common 10:24:00 10:24:00 t [employer] [facility] it Drive [facility] 2019-08-21 2019-08-21 Emergency X IVY, [facility] ERT [id number] Univers 19:42:19 23:51:00 GABRIELE ity [facility] 2019-08-21 2019-08-21 Emergency Ivy, [facility] 1.2.485.906 [id number] Univers 19:42:19 23:51:00 Gabriele [place] 350.1.13.10 ity of [place] 4.2.7.2.686 [facility] [id number] [address] 2019-08-21 2019-08-21 Emergency Leahga, [facility] 1.2.160.245 [id number] 19:42:19 23:51:00 Gabriele [place] Chao 350.1.13.10 [place] 4.2.7.2.686 [place] [id number] [facility] 2019-07-14 2019-07-14 Outpatient [facility] [id number] Common 15:00:00 15:00:00 [employer] [facility] it [facility] 2019-06-25 2019-06-25 Emergency Ron, [facility] 1.2.840.114 [id number] Univers 16:52:11 20:04:00 Kirstin Marcum 350.1.13.10 i ty of [place] 4.2.7.2.686 [facility] [id number] [address] 2019-06-25 2019-06-25 Emergency [facility], [facility] 1.2.840.114 [id number] 16:52:11 20:04:00 Kirstin Chao 350.1.13.10 [place] 4.2.7.2.686 [place] [id number] [facility] 2019-06-19 2019-06-19 Emergency [facility] 1.2.475.[address] [place] [address] 13:58:11 19:09:00 Rosalinda Marcum 350.1.13.10 ity of [place] 4.2.7.2.686 [facility] [phone] [address] 2019-06-19 2019-06-19 Emergency [facility] 1.2.791.[id number] [facility] 13:58:11 19:09:00 Rosalinda Upton Chao 350.1.13.10 [place] 4.2.7.2.686 [place] [id number] [facility] 2019-06-19 2019-06-19 Orders Doctor JAQUELIN 1.2.840.114 [id number] Univers 00:00:00 00:00:00 Only Unassigned, BIANCA 350.1.13.10 ity of [place] [facility] 4.2.7.2.[address] [facility] [place] [phone] [address] 2019-06-19 2019-06-19 Orders Doctor JAQUELIN 1.2.840.114 [id number] 00:00:00 00:00:00 Only Unassigned, BIANCA 350.1.13.10 [place] [facility] 4.2.7.2.68 [id number] [facility] 2019-05-19 2019-05-19 Emergency X [facility] ERT [id number] Univers 18:29:04 21:26:00 JADYN li [facility] 2019-05-19 2019-05-19 Emergency [facility] 1.2.085.351 [id number] Univers 18:29:04 21:26:00 Jadyn Marcum 350.1.13.10 i ty of [place] 4.2.7.2.686 [facility] [phone] [address] 2019-05-19 2019-05-19 Emergency [facility] 1.2.948.311 [id number] 6612 18:29:04 21:26:00 Jadyn Marcum 350.1.13.10 [place] 4.2.7.2.686 [place] [id number] 4 2019-03-02 2019-03-02 Outpatient [facility] [id number] Common 10:40:00 10:40:00 t [employer] Sp[address] it Drive [facility] 2019-02-04 2019-02-04 Outpatient [facility] [id number] Common 10:55:00 10:55:00 t [employer] Spir it Drive [facility] 2018-12-24 2018-12-24 Telephone Christina [facility] 1.2.840.114 [id number] Univers 00:00:00 00:00:00 Milagros Chen 350.1.13.10 it y of Surgical 4.2.7.2.686 Archie as Specialti [id number] Ak dical es 198 [facility] 2018-12-24 2018-12-24 [facility] [place] 1.2.840.114 [id number] 00:00:00 00:00:00 Milagros Chen 350.1.13.10 Surgical 4.2.7.2.686 Specialti [id number] es [address] [place] [address] 2018-12-18 2018-12-18 [facility] 1.2.840.114 [id number] Univers 08:54:57 23:59:00 Encounter Milagros Chen 350.1.13.10 ity of Surgical 4.2.7.2.686 [place] as Specialti [id number] Ak dical es 809 [facility] 2018-12-18 2018-12-18 Office [facility] 1.2.560.563 [id number] 3436 [facility] 08:37:16 09:02:40 Visit Milagros Chen 350.1.13.10 it y of Surgical 4.2.7.2.686 Archie as Specialti [id number] Ak dical es 198 [facility] 2018-12-08 2018-12-08 [facility] 1.2.425.929 [id number] 7287 Univers 15:02:42 15:51:02 Visit Milagros Chen 350.1.13.10 it y of Surgical 4.2.7.2.686 [place] as Specialti [id number] Ak dical es 198 [facility] 2018-12-05 2018-12-05 [facility] 1.2.840.114 [id number] Univers 09:47:09 23:59:00 Encounter Ector Maxine [place] 350.1.13.10 it[place] of [place]2.7.2.[place] [phone] [facility] [address] 2018-12-05 2018-12-05 Office [facility] 1.2.689.550 [id number] 9246 Univers 07:55:02 09:26:33 Visit [facility] 350.1.13.10 it y of Surgical 4.2.7.2.686 Archie as Specialti [id number] Ak dical es 198 [facility] 2018-12-01 2018-12-01 Emergency Jaki Polanco [facility] 1.2.840.114 [id number] Univers 14:24:08 18:38:00 Sydnie Marcum 350.1.13.10 i ty of [place] 4[place]2.7.2.[place] [id number] [facility] [address] 2018-11-18 2018-11-18 Transition Nhan Smith 1.2.840.114 [id number] Univers 00:00:00 00:00:00 of Care Pricilla Wills 350.1.13.10 it y of [place]2.7.2.[place] [phone] [facility] [address] 2018-11-15 2018-11-17 Emergency Mariana Ramirez 1.2.840. 114 [id number] Univers 09:29:33 16:00:00 Sundar Brooke 350.1.13.10 ity of [facility] 4.2.7.2.686 [place] [phone] [facility] [address] 2018-10-07 2018-10-07 Out[facility] [id number] Common 11:00:00 11:00:00 t [employer] Spir it Drive [facility] 2018-07-28 2018-07-28 Out[facility] [id number] Common 09:57:00 09:57:[address] [facility] 2018-07-25 2018-07-25 Outpatient [facility] [id number] Common 14:40:00 14:40:[address] [facility] Results Test Description Test Time Test [...] L [Au tomated message] The system which iLumen nerated this result transmit gulshan reference range: [...] 32.8 g/dL 31.6-35.1 RDW-SD (test code = 54437-9) 48.9 fL 39.0-49.9 RDW-CV (test code = 788-0) 14.6 % 12.0-15.5 PLT (test code = 777-3) 179 See_Comment [Au tomated message] The system which iLumen nerated this result transmit gulshan reference range: 166 - 35 8 10*3/?L. The reference range was not used to interpret th is result as normal/abnormal . MPV (test code = 52097-6) 10.9 fL 9.5-12.9 NRBC/100 WBC (test code = 0.0 See_Comment [ Automated message] The [id number]) system which iLumen nerated this result transmit gulshan reference range: 0.0 - 10 .0 /100 WBCs. The reference r luca was not used to interpr et this result as normal/abnor mal. NRBC x10^3 (test code = See_Comment [Au tomated message] The 9395997939) system which iLumen nerated this result transmit gulshan reference range: 10*3/?L. The reference range was not u sed to interpret this result as normal/abnormal . GRAN MAT (NEUT) % (test code 56.0 % = 770-8) IMM GRAN % (test code = 1.00 % 9555714993) LYMPH % (test code = 736-9) 34.1 % MONO % (test code = 5905-5) 7.3 % EOS % (test code = 713-8) 1.3 % BASO % (test code = 706-2) 0.3 % GRAN MAT x10^3(ANC) (test 1.76 10*3/uL 1.88-7.09 L code = 6821744414) IMM GRAN x10^3 (test code = 0.03 10*3/uL 0.00-0.06 4754371573) LYMPH x10^3 (test code = 1.07 10*3/uL [...] . Lab Interpretation (test Abnormal code = 72542-9) [facility] Metabolic Panel (NA, K, CL, CO2, GLUCOSE, BUN, CREATININE, CA)2022-07-31 11:30:44 Test Item Value Reference Range Interpretation Comments NA (test code = 136 mmol/L 135-145 0651687550) K (test code = 3.7 mmol/L 3.5-5.0 0695986380) CL (test code = 109 mmol/L 98-108 H 5261231358) CO2 TOTAL (test code = 21 mmol/L 23-31 L 6512249305) AGAP (test code = 6 2-16 3248882937) BUN (test code = 11 mg/dL 7-23 6576851256) GLUCOSE (test code = 81 mg/dL 70-110 0797799995) CREATININE (test code = 0.45 mg/dL 0.50-1.04 L 9285896415) CALCIUM (test code = 8.6 mg/dL 8.6-10.6 3085276526) eGFR (test code = 142.6 mL/min/1.73m2 4533722943) KIM (test code = KIM) Association of [...] tests). Lab Interpretation Abnormal (test code = 98585-4) [facility] Test Item Value Reference Range Interpretation Comments LIPASE (test code = 1523361597) 307 U/L 0-220 H Lab Interpretation (test code = Abnormal 84321-4) [facility] (23533)2022-07-30 23:56:34 Test Item Value Reference Range Interpretation Comments NA (test code = 138 mmol/L 135-145 0631790300) K (test code = 3.9 mmol/L 3.5-5.0 0692166623) CL (test code = 106 mmol/L 98-108 9308904836) CO2 TOTAL (test code = 21 mmol/L 23-31 L 7866780302) AGAP (test code = 11 2-16 3725610458) BUN (test code = 12 mg/dL 7-23 5336414993) GLUCOSE (test code = 86 mg/dL 70-110 9349845270) CREATININE (test code = 0.46 mg/dL 0.50-1.04 L 8745765267) TOTAL BILI (test code = 2.7 mg/dL 0.1-1.1 H 7734788323) CALCIUM (test code = 9.0 mg/dL 8.6-10.6 5850054217) T PROTEIN (test code = 7.2 g/dL 6.3-8.2 0651087007) ALBUMIN (test code = 4.1 g/dL 3.5-5.0 6121517950) ALK PHOS (test code = 841 U/L 34-122 H 0568113040) ALTv (test code = 154 U/L 5-35 H 1742-6) AST(SGOT) (test code = 159 U/L 13-40 H 8271704836) eGFR (test code = 139.0 mL/min/1.73m2 0340940828) KIM (test code = KIM) Association of [...] tests). Lab Interpretation Abnormal (test code = 50004-4) [facility]. [facility] 23[facility]56[facility]14 Test Item Value Reference Range Interpretation Comments LIPASE (test code = 4351100880) 70 U/L 0-220 Lab Interpretation (test code = Normal 23875-8) [facility] CenterACTIVATED PARTIAL THRMPLAS [id number] 23:54:13 Test Item Value Reference Range Interpretation Comments APTT Patient (test 26 See_Comment [Automat ed code = 3173-2) message] The system which generated this result transmitted reference range : 23 - 38 Seconds . The reference range was not used to interpr et this result as normal/abnormal . KIM (test code = KIM) The [facility] patient population mean normal value for aPTT is 30 seconds. Lab Interpretation Normal (test code = 09864-5) [facility] CenterPROTHROMBIN TIME / [id number] 23:52:12 Test Item Value Reference Range Interpretation [...] tions. Lab Interpretation (test Normal code = 73725-1) [facility] CenterCBC WITH [id number] 23:44:51 Test Item Value Reference Range Interpretation Comments WBC (test code = 4.50 See_Comment [Automated 6690-2) message] The sy stem [...] RDW-SD (test code = 48.9 fL 39.0-49.9 25936-6) RDW-CV (test code = 14.6 % 12.0-15.5 788-0) PLT (test code = 200 See_Comment [Automated 777-3) message] The sy stem which generated this result transmitted reference range : 166 - 358 10*3/ ?L. The reference r luca was not used to interpret this result as normal/abnormal . MPV (test code = 10.4 fL 9.5-12.9 72330-9) NRBC/100 WBC (test 0.0 See_Comment [Automat ed code = 2531723148) message] The system which generated this result transmitted reference range : 0.0 - 10.0 /100 WBCs. The refer ence range was not u sed to interpret th is result as normal/abnormal . NRBC x10^3 (test code See_Comment [Auto mated = 0598670325) message] The s ystem which generated this result transmitted reference range : 10*3/?L. The reference range was not used to interpret this result as normal/abnormal . GRAN MAT (NEUT) % 73.4 % (test code = 770-8) IMM GRAN % (test code 0.20 % = 6584210037) LYMPH % (test code = 18.9 % 736-9) MONO % (test code = 6.4 % 5905-5) EOS % (test code = 0.4 % 713-8) BASO % (test code = 0.7 % 706-2) GRAN MAT x10^3(ANC) 3.30 10*3/uL 1.88-7.09 (test code = 9178239863) IMM GRAN x10^3 (test 0.00-0.06 code = 8072086629) LYMPH x10^3 (test code 0.85 10*3/uL 1.32-3.29 L = 731-0) MONO x10^3 (test code 0.29 10*3/uL 0.33-0.92 L = 742-7) EOS x10^3 (test code = 0.03-0.39 L 711-2) BASO x10^3 (test code 0.03 10*3/uL 0.01-0.07 = 704-7) Lab Interpretation Abnormal (test code = 26591-8) [facility] CenterGLYCOSYLATED HEMOGLOBIN (A1C)2022-04-26 11:07:42 Test Item Value Reference Range Interpretation Comments HGB A1C (test code = 4.5 % 4.0-5.7 4548-4) KIM (test code = KIM) Reference RangesNormal: <5.7%Prediabetes: 5.7 - 6.4%Diabetes: > 6.5% Lab Interpretation (test Normal code = 00877-7) [facility] CenterGLYCOSYLATED HEMOGLOBIN (A1C)2022-04-26 11:07:42 Test Item Value Reference Range Interpretation Comments HGB A1C (test code = 4.5 % 4.0-5.7 4548-4) KIM (test code = KIM) Reference RangesNormal: <5.7%Prediabetes: 5.7 - 6.4%Diabetes: > 6.5% Lab Interpretation (test Normal code = 42001-6) [facility] CenterCOMP. METABOLIC PANEL (70452)2022-04-26 00:04:36 Test Item Value Reference Range Interpretation Comments NA (test code = 139 mmol/L 135-145 8186251587) K (test code = 4.3 mmol/L 3.5-5.0 2799779096) CL (test code = 105 mmol/L 98-108 2660360101) CO2 TOTAL (test code = 22 mmol/L 23-31 L 7863336517) AGAP (test code = 2-16 1905668590) BUN (test code = 22 mg/dL 7-23 5581563123) GLUCOSE (test code = 94 mg/dL 70-110 2725902998) CREATININE (test code = 0.86 mg/dL 0.50-1.04 5676313531) TOTAL BILI (test code = 2.1 mg/dL 0.1-1.1 H 3990842334) CALCIUM (test code = 9.0 mg/dL 8.6-10.6 2207568090) T PROTEIN (test code = 8.1 g/dL 6.3-8.2 4227167398) ALBUMIN (test code = 4.4 g/dL 3.5-5.0 5983613169) ALK PHOS (test code = 1234 U/L 34-122 H 4844729616) ALTv (test code = 166 U/L 5-35 H 1742-6) AST(SGOT) (test code = 182 U/L 13-40 H 7919848785) eGFR (test code = mL/min/1.73m2 1308694490) KIM (test code = KIM) Association of [...] tests). Lab Interpretation Abnormal (test code = 90113-3) [facility] CenterL[facility]20[facility] 00:04:36 Test Item Value Reference Range Interpretation Comments LIPASE (test code = 4104742238) 137 U/L 0-220 Lab Interpretation (test code = Normal 65096-0) [facility] CenterCOMP. METABOLIC PANEL (57070)2022-04-26 00:04:36 Test Item Value Reference Range Interpretation Comments NA (test code = 139 mmol/L 135-145 9420182781) K (test code = 4.3 mmol/L 3.5-5.0 4222252490) CL (test code = 105 mmol/L 98-108 7099939229) CO2 TOTAL (test code = 22 mmol/L 23-31 L 3813755569) AGAP (test code = 2-16 5995293365) BUN (test code = 22 mg/dL 7-23 4531986698) GLUCOSE (test code = 94 mg/dL 70-110 1532189653) CREATININE (test code = 0.86 mg/dL 0.50-1.04 9438456353) TOTAL BILI (test code = 2.1 mg/dL 0.1-1.1 H 3143635935) CALCIUM (test code = 9.0 mg/dL 8.6-10.6 3633249172) T PROTEIN (test code = 8.1 g/dL 6.3-8.2 5682142964) ALBUMIN (test code = 4.4 g/dL 3.5-5.0 2840138257) ALK PHOS (test code = 1234 U/L 34-122 H 0193092939) ALTv (test code = 166 U/L 5-35 H 1742-6) AST(SGOT) (test code = 182 U/L 13-40 H 3265545617) eGFR (test code = mL/min/1.73m2 4648022253) KIM (test code = KIM) Association of [...] tests). Lab Interpretation Abnormal (test code = 51787-6) [facility] CenterL[facility]20[facility] 00:04:36 Test Item Value Reference Range Interpretation Comments LIPASE (test code = 0186871756) 137 U/L 0-220 Lab Interpretation (test code = Normal 45746-4) [facility] CenterCB WITH [id number] 23:46:13 Test Item Value Reference Range Interpretation Comments WBC (test code = See_Comment [Automated 1549-2) message] The sy stem which generated this result transmitted reference range : 4.30 - 11.10 10*3/?L. The reference range was not used to interpret this result as normal/abnormal . RBC (test code = See_Comment L [Automated 489-8) message] The sy stem which generated this [...] RDW-SD (test code = 48.8 fL 39.0-49.9 40106-3) RDW-CV (test code = 14.4 % 12.0-15.5 788-0) PLT (test code = See_Comment [Automated 777-3) message] The sy stem which generated this result transmitted reference range : 166 - 358 10*3/ ?L. The reference r luca was not used to interpret this result as normal/abnormal . MPV (test code = 10.1 fL 9.5-12.9 18794-1) NRBC/100 WBC (test See_Comment [Automat ed code = 7474294868) message] The system which generated this result transmitted reference range : 0.0 - 10.0 /100 WBCs. The refer ence range was not u sed to interpret th is result as normal/abnormal . NRBC x10^3 (test code See_Comment [Auto mated = 2497071154) message] The s ystem which generated this result transmitted reference range : 10*3/?L. The reference range was not used to interpret this result as normal/abnormal . GRAN MAT (NEUT) % 70.1 % (test code = 770-8) IMM GRAN % (test code 0.20 % = 9826823130) LYMPH % (test code = 20.2 % 736-9) MONO % (test code = 8.0 % 5905-5) EOS % (test code = 1.1 % 713-8) BASO % (test code = 0.4 % 706-2) GRAN MAT x10^3(ANC) 3.22 10*3/uL 1.88-7.09 (test code = 9165253486) IMM GRAN x10^3 (test 0.00-0.06 code = 7722287571) LYMPH x10^3 (test code 0.93 10*3/uL 1.32-3.29 L = 731-0) MONO x10^3 (test code 0.37 10*3/uL 0.33-0.92 = 742-7) EOS x10^3 (test code = 0.05 10*3/uL 0.03-0.39 711-2) BASO x10^3 (test code 0.01-0.07 = 704-7) Lab Interpretation Abnormal (test code = 66957-8) [facility] WITH [id number] 23:46:13 Test Item Value Reference Range Interpretation [...] RDW-SD (test code = 48.8 fL 39.0-49.9 73590-1) RDW-CV (test code = 14.4 % 12.0-15.5 788-0) PLT (test code = See_Comment [Automated 777-3) message] The sy stem which generated this result transmitted reference range : 166 - 358 10*3/ ?L. The reference r luca was not used to interpret this result as normal/abnormal . MPV (test code = 10.1 fL 9.5-12.9 34185-6) NRBC/100 WBC (test See_Comment [Automat ed code = 4938945496) message] The system which generated this result transmitted reference range : 0.0 - 10.0 /100 WBCs. The refer ence range was not u sed to interpret th is result as normal/abnormal . NRBC x10^3 (test code See_Comment [Auto mated = 6121012146) message] The s ystem which generated this result transmitted reference range : 10*3/?L. The reference range was not used to interpret this result as normal/abnormal . GRAN MAT (NEUT) % 70.1 % (test code = 770-8) IMM GRAN % (test code 0.20 % = 4758609775) LYMPH % (test code = 20.2 % 736-9) MONO % (test code = 8.0 % 5905-5) EOS % (test code = 1.1 % 713-8) BASO % (test code = 0.4 % 706-2) GRAN MAT x10^3(ANC) 3.22 10*3/uL 1.88-7.09 (test code = 6877248347) IMM GRAN x10^3 (test 0.00-0.06 code = 5916953392) LYMPH x10^3 (test code 0.93 10*3/uL 1.32-3.29 L = 731-0) MONO x10^3 (test code 0.37 10*3/uL 0.33-0.92 = 742-7) EOS x10^3 (test code = 0.05 10*3/uL 0.03-0.39 711-2) BASO x10^3 (test code 0.01-0.07 = 704-7) Lab Interpretation Abnormal (test code = 93054-7) [facility] METABOLIC PANEL (NA, K, CL, CO2, GLUCOSE, BUN, CREATININE, CA)2022-02-06 10:05:29 Test Item Value Reference Range Interpretation Comments NA (test code = 137 mmol/L 135-145 4518172116) K (test code = 3.0 mmol/L 3.5-5 L 8165677566) CL (test code = 107 mmol/L 98-108 5016466671) CO2 TOTAL (test code = 23 mmol/L 23-31 1048945540) AGAP (test code = 2-16 4410678697) BUN (test code = 4 mg/dL 7-23 L 0823058831) GLUCOSE (test code = 108 mg/dL 70-110 1429578017) CREATININE (test code = 0.40 mg/dL 0.5-1.04 L 8869416674) CALCIUM (test code = 8.1 mg/dL 8.6-10.6 L 9284069242) eGFR (test code = mL/min/1.73m2 2837582862) KIM (test code = KIM) Association of [...] tests). Lab Interpretation Abnormal (test code = 30729-4) [facility] WITH [id number] 09:44:25 Test Item Value Reference Range Interpretation [...] (test code = 52.6 fL 39-49.9 H 68701-7) RDW-CV (test code = 15.3 % 12-15.5 788-0) PLT (test code = See_Comment [Automated 777-3) message] The sy stem which generated this result transmitted reference range : 166 - 358 10*3/ ?L. The reference r luca was not used to interpret this result as normal/abnormal . MPV (test code = 9.4 fL 9.5-12.9 L 40819-6) NRBC/100 WBC (test See_Comment [Automat ed code = 9562805697) message] The system which generated this result transmitted reference range : 0.0 - 10.0 /100 WBCs. The refer ence range was not u sed to interpret th is result as normal/abnormal . NRBC x10^3 (test code See_Comment [Auto mated = 2978260309) message] The s ystem which generated this result transmitted reference range : 10*3/?L. The reference range was not used to interpret this result as normal/abnormal . GRAN MAT (NEUT) % 70.4 % (test code = 770-8) IMM GRAN % (test code 0.50 % = 1295504278) LYMPH % (test code = 17.2 % 736-9) MONO % (test code = 10.3 % 5905-5) EOS % (test code = 1.3 % 713-8) BASO % (test code = 0.3 % 706-2) GRAN MAT x10^3(ANC) 2.67 10*3/uL 1.88-7.09 (test code = 5758079841) IMM GRAN x10^3 (test 0-0.06 code = 2857578070) LYMPH x10^3 (test code 0.65 10*3/uL 1.32-3.29 L = 731-0) MONO x10^3 (test code 0.39 10*3/uL 0.33-0.92 = 742-7) EOS x10^3 (test code = 0.05 10*3/uL 0.03-0.39 711-2) BASO x10^3 (test code 0.01-0.07 = 704-7) Lab Interpretation Abnormal (test code = 97695-1) [facility] CenterLIP[facility] PANEL (63457)(TOTAL CHOLESTEROL, TRIGLYCERIDES, HDL)2022-02-04 02:32:52 Test Item Value Reference Range Interpretation Comments CHOL (test code = 344 mg/dL 120-200 H 0582417092) HDL (test code = 85 mg/dL See_Comment [Automated message] 3112438336) The system [employer] generated this result transmit gulshan reference range : >=50. The refer ence range was not u sed to interpret th is result as normal/abnormal . HDLC RATIO (test code = See_Comment [Au tomated message] 9995005975) The system [employer] generated this result transmit gulshan reference range : <=4.5. The refe rence range was not u sed to interpret th is result as normal/abnormal . TRIG (test code = 144 mg/dL 30-170 0243475625) LDL CHOL (test code = 230 mg/dL See_Comment H [Auto mated message] 65207-4) The system [employer] generated this result transmit gulshan reference range : <=160. The refe rence range was not u sed to interpret th is result as normal/abnormal . VLDL (test code = 29 mg/dL 5-60 9856503664) Lab Interpretation (test Abnormal code = 77970-4) [facility] CenterSER [facility]UG (IMMUNOASSAY) - COMPREHENSIVE DRUG [id number] 23:28:12 Test Item Value Reference Range Interpretation Comments SLIM S (test code = Negative Negative 8542259514) BENZO S (test code = Negative Negative 2162307599) TRICYCLIC (test code = Presumptive Positive Negative A 2698165136) KIM (test code = KIM) Serum Drug Screen Cutoff Ranges Barbiturates ? ? - 3 mcg/mLBenzodiazepines ?- 50 ng/mLTCA ?- 300 ng/mL Test developed and characteristics determined by [facility] Laboratory Services. The results are to be used only for medical (i.e., treatment) purposes. Unconfirmed screening results must not be used for non-medical purposes (e.g., employment testing, legal testing). Lab Interpretation Abnormal (test code = 41682-6) [facility] CenterETHANOL2022-10-22 16:58:54 ALCOHOL<10mg/dL02/03/2022 11:58 AM [facility]<10 Lsvizmbb95-446 Toxic>100 Depression of INTEGRATION ARCHITECT>400 Fatalities ReportedSt. [facility] CenterCOMP. METABOLIC PANEL (82845) 2022-02-03 16:24:17 Test Item Value Reference Range Interpretation Comments NA (test code = 138 mmol/L 135-145 4746651351) K (test code = 4.2 mmol/L 3.5-5 3537599447) CL (test code = 102 mmol/L 98-108 8330555801) CO2 TOTAL (test code = 24 mmol/L 23-31 8140560721) AGAP (test code = 2-16 9675123265) BUN (test code = 19 mg/dL 7-23 9884719539) GLUCOSE (test code = 128 mg/dL 70-110 H 8541538675) CREATININE (test code = 0.56 mg/dL 0.5-1.04 4739476450) TOTAL BILI (test code = 2.7 mg/dL 0.1-1.1 H 7309418239) CALCIUM (test code = 8.7 mg/dL 8.6-10.6 1289797407) T PROTEIN (test code = 7.2 g/dL 6.3-8.2 5051749402) ALBUMIN (test code = 4.0 g/dL 3.5-5 8443260906) ALK PHOS (test code = 627 U/L 34-122 H 0098355563) ALTv (test code = 77 U/L 5-35 H 1742-6) AST(SGOT) (test code = 87 U/L 13-40 H 5331144635) eGFR (test code = mL/min/1.73m2 8346796667) KIM (test code = KIM) Association of [...] tests). Lab Interpretation Abnormal (test code = 07031-1) [facility]20[facility] 16:23:57 Test Item Value Reference Range Interpretation Comments LIPASE (test code = 1648104560) 35 U/L 0-220 Lab Interpretation (test code = Normal 04214-9) [facility] CenterAMYLASE2022-10-22 16:23:11 Test Item Value Reference Range Interpretation Comments JORGE (test code = 4948668336) 42 U/L 35-110 Lab Interpretation (test code = Normal 63671-0) [facility] CenterCBC WITH [id number] 16:10:32 Test Item Value Reference Range Interpretation [...] (test code = 55.9 fL 39-49.9 H 75146-4) RDW-CV (test code = 15.9 % 12-15.5 H 788-0) PLT (test code = See_Comment [Automated 777-3) message] The sy stem which generated this result transmitted reference range : 166 - 358 10*3/ ?L. The reference r luca was not used to interpret this result as normal/abnormal . MPV (test code = 9.5 fL 9.5-12.9 06499-5) NRBC/100 WBC (test See_Comment [Automat ed code = 0482042755) message] The system which generated this result transmitted reference range : 0.0 - 10.0 /100 WBCs. The refer ence range was not u sed to interpret th is result as normal/abnormal . NRBC x10^3 (test code See_Comment [Auto mated = 7736590908) message] The s ystem which generated this result transmitted reference range : 10*3/?L. The reference range was not used to interpret this result as normal/abnormal . GRAN MAT (NEUT) % 88.9 % (test code = 770-8) IMM GRAN % (test code 0.20 % = 6649042117) LYMPH % (test code = 4.9 % 736-9) MONO % (test code = 5.8 % 5905-5) EOS % (test code = 0.0 % 713-8) BASO % (test code = 0.2 % 706-2) GRAN MAT x10^3(ANC) 4.72 10*3/uL 1.88-7.09 (test code = 5562374044) IMM GRAN x10^3 (test 0-0.06 code = 3496094126) LYMPH x10^3 (test code 0.26 10*3/uL 1.32-3.29 L = 731-0) MONO x10^3 (test code 0.31 10*3/uL 0.33-0.92 L = 742-7) EOS x10^3 (test code = 0.03-0.39 L 711-2) BASO x10^3 (test code 0.01-0.07 = 704-7) Lab Interpretation Abnormal (test code = 76548-7) [facility] WITH [id number] 10:06:02 Test Item Value Reference Range Interpretation Comments WBC (test code = See_Comment L [Automated 8490-2) message] The sy stem which generated this result transmitted reference range : 4.30 - 11.10 10*3/?L. The reference range was not used to interpret this result as normal/abnormal . RBC (test code = See_Comment L [Automated 459-8) message] The sy stem which generated this [...] RDW-SD (test code = 45.6 fL 39.0-49.9 33660-0) RDW-CV (test code = 13.2 % 12.0-15.5 788-0) PLT (test code = See_Comment [Automated 777-3) message] The sy stem which generated this result transmitted reference range : 166 - 358 10*3/ ?L. The reference r luca was not used to interpret this result as normal/abnormal . MPV (test code = 10.1 fL 9.5-12.9 03015-3) NRBC/100 WBC (test See_Comment [Automat ed code = 7656255143) message] The system which generated this result transmitted reference range : 0.0 - 10.0 /100 WBCs. The refer ence range was not u sed to interpret th is result as normal/abnormal . NRBC x10^3 (test code <0.01 See_Comment [Auto mated = 0443306139) message] The s ystem which generated this result transmitted reference range : 10*3/?L. The reference range was not used to interpret this result as normal/abnormal . GRAN MAT (NEUT) % 47.9 % (test code = 770-8) IMM GRAN % (test code 0.30 % = 9522874981) LYMPH % (test code = 39.0 % 736-9) MONO % (test code = 9.8 % 5905-5) EOS % (test code = 2.5 % 713-8) BASO % (test code = 0.5 % 706-2) GRAN MAT x10^3(ANC) 1.76 10*3/uL 1.88-7.09 L (test code = 4318035107) IMM GRAN x10^3 (test <0.03 0.00-0.06 code = 2347867707) LYMPH x10^3 (test code 1.43 10*3/uL 1.32-3.29 = 731-0) MONO x10^3 (test code 0.36 10*3/uL 0.33-0.92 = 742-7) EOS x10^3 (test code = 0.09 10*3/uL 0.03-0.39 711-2) BASO x10^3 (test code <0.03 0.01-0.07 = 704-7) Lab Interpretation Abnormal (test code = 31523-7) [facility] CenterCOMP[facility]OLIC PANEL (93172)2021-09-08 10:01:57 Test Item Value Reference Range Interpretation Comments NA (test code = 137 mmol/L 135-145 3339822605) K (test code = 4.4 mmol/L 3.5-5.0 2945080991) CL (test code = 105 mmol/L 98-108 9997809121) CO2 TOTAL (test code = 27 mmol/L 23-31 7914625627) AGAP (test code = 2-16 6405441427) BUN (test code = 16 mg/dL 7-23 7002519136) GLUCOSE (test code = 91 mg/dL 70-110 9459361119) CREATININE (test code = 0.80 mg/dL 0.50-1.04 9767435689) TOTAL BILI (test code = 1.3 mg/dL 0.1-1.1 H 4957040627) CALCIUM (test code = 8.9 mg/dL 8.6-10.6 5743623422) T PROTEIN (test code = 7.4 g/dL 6.3-8.2 9753494629) ALBUMIN (test code = 4.0 g/dL 3.5-5.0 6535949262) ALK PHOS (test code = 422 U/L 34-122 H 9168105318) ALTv (test code = 64 U/L 5-35 H 1742-6) AST(SGOT) (test code = 53 U/L 13-40 H 6800213120) eGFR (test code = mL/min/1.73m2 0270449383) KIM (test code = KIM) Association of [...] tests). Lab Interpretation Abnormal (test code = 64841-4) [facility] CenterMAGNESIUM2022-05-27 10:01:57 Test Item Value Reference Range Interpretation Comments MAGNESIUM (test code = 6284706708) 2.1 mg/dL 1.7-2.4 Lab Interpretation (test code = Normal 97641-6) [facility] CenterEBV QUANTITATIVE [id number] 14:36:03 Test Item Value Reference Range Interpretation Comments Jocelyn-Quiros Plasma Virus, Quant. Source (test code = 36994-7) Jocelyn-Quiros <390 cpy/mL Virus, Quant. Copy/mL (test code = 27987-3) Jocelyn-Quiros <2.6 log INTERPRETIVE Virus, Quant. Log INFORMATIO N: Jocelyn (test code = [place] [address]-1) Quantitative PC RThe quantitative ra nge of [...] of detection by th e assay.Performed by [employer],[address] <truncated> [facility] CenterMAGNESIUM2022-05-26 08:53:00 Test Item Value Reference Range Interpretation Comments MAGNESIUM (test code = 8109707051) 1.6 mg/dL 1.7-2.4 L Lab Interpretation (test code = Abnormal 21178-1) [facility] METABOLIC PANEL (NA, K, CL, CO2, GLUCOSE, BUN, CREATININE, CA)2021-09-07 08:53:00 Test Item Value Reference Range Interpretation Comments NA (test code = 136 mmol/L 135-145 8932409865) K (test code = 4.6 mmol/L 3.5-5.0 2173269695) CL (test code = 103 mmol/L 98-108 4971988720) CO2 TOTAL (test code 26 mmol/L 23-31 = 0397509708) AGAP (test code = 2-16 7128504594) BUN (test code = 14 mg/dL 7-23 9760170029) GLUCOSE (test code = 100 mg/dL 70-110 0312579685) CREATININE (test code 0.64 mg/dL 0.50-1.04 = 9632942015) CALCIUM (test code = 8.9 mg/dL 8.6-10.6 1694335000) eGFR (test code = mL/min/1.73m2 8344696398) KIM (test code = KIM) Association of [...] or urine or abnormalities in imaging tests). [facility] CenterHEPATIC FUNCTION PANEL (90318) (ALB,T.PRO,BILI T,BU/BC,ALT,AST,ALK PHOS)2021-09-07 08:53:00 Test Item Value Reference Range Interpretation Comments TOTAL BILI (test code = 5114823567) 1.2 mg/dL 0.1-1.1 H BILI UNCON (test code = 1935858587) 0.3 mg/dL 0.1-1.1 BILI CONJ (test code = 9603940088) 0.0 mg/dL 0.0-0.3 T PROTEIN (test code = 8955120305) 7.2 g/dL 6.3-8.2 ALBUMIN (test code = 6816320670) 3.9 g/dL 3.5-5.0 ALK PHOS (test code = 2406777169) 449 U/L 34-122 H ALTv (test code = 1742-6) 75 U/L 5-35 H AST(SGOT) (test code = 5201707666) 55 U/L 13-40 H Lab Interpretation (test code = Abnormal 19011-7) [facility] WITH [id number] 08:24:58 Test Item Value Reference Range Interpretation [...] RDW-SD (test code = 45.1 fL 39.0-49.9 27866-7) RDW-CV (test code = 13.2 % 12.0-15.5 788-0) PLT (test code = See_Comment L [Automated 777-3) message] The sy stem which generated this result transmitted reference range : 166 - 358 10*3/ ?L. The reference r luca was not used to interpret this result as normal/abnormal . MPV (test code = 10.0 fL 9.5-12.9 30090-4) NRBC/100 WBC (test See_Comment [Automat ed code = 7575661380) message] The system which generated this result transmitted reference range : 0.0 - 10.0 /100 WBCs. The refer ence range was not u sed to interpret th is result as normal/abnormal . NRBC x10^3 (test code <0.01 See_Comment [Auto mated = [id number]) message] The s ystem which generated this result transmitted reference range : 10*3/?L. The reference range was not used to interpret this result as normal/abnormal . GRAN MAT (NEUT) % 41.2 % (test code = 770-8) IMM GRAN % (test code 0.30 % = [id number]) LYMPH % (test code = 45.5 % 736-9) MONO % (test code = 10.0 % 5905-5) EOS % (test code = 2.3 % 713-8) BASO % (test code = 0.7 % 706-2) GRAN MAT x10^3(ANC) 1.24 10*3/uL 1.88-7.09 L (test code = 3194110595) IMM GRAN x10^3 (test <0.03 0.00-0.06 code = [id number]) LYMPH x10^3 (test code 1.37 10*3/uL 1.32-3.29 = 731-0) MONO x10^3 (test code 0.30 10*3/uL 0.33-0.92 L = 742-7) EOS x10^3 (test code = 0.07 10*3/uL 0.03-0.39 711-2) BASO x10^3 (test code <0.03 0.01-0.07 = 704-7) Lab Interpretation Abnormal (test code = 63268-2) [facility]PATHOLOG[facility] [id number] 17:03:59ANA - Pathologist InterpretationANA HEp-2 IIFA Pathologist [...] ? Marnie Mayorga MD ?09/06/2021 ?12:02 PM ?[facility] SERVICESUniversity [facility] (NA, K, CL, CO2, GLUCOSE, BUN, CREATININE, CA)2021-09-06 10:30:13 Test Item Value Reference Range Interpretation Comments NA (test code = 137 mmol/L 135-145 [id number]) K (test code = 4.5 mmol/L 3.5-5.0 Slight hemoly sis [id number]) CL (test code = 105 mmol/L 98-108 0079262138) CO2 TOTAL (test 27 mmol/L 23-31 code = 6334808989) AGAP (test code = 2-16 0082498265) BUN (test code = 15 mg/dL 7-23 Slight hemo lysis 9991955237) GLUCOSE (test code 102 mg/dL 70-110 = 3466757153) CREATININE (test 0.70 mg/dL 0.50-1.04 code = 3233606295) CALCIUM (test code 8.7 mg/dL 8.6-10.6 = 0231999504) eGFR (test code = mL/min/1.73m2 4759198261) KIM (test code = Association of KIM) [...] or urine or abnormalities in imaging tests). [facility] (74082[facility] (ALB,T.PRO,BILI T,BU/BC,ALT,AST,ALK PHOS)2021-09-06 10:30:13 Test Item Value Reference Range Interpretation Comments TOTAL BILI (test code = 4230301585) 1.3 mg/dL 0.1-1.1 H BILI UNCON (test code = 9238484854) 0.3 mg/dL 0.1-1.1 BILI CONJ (test code = 9942243614) 0.0 mg/dL 0.0-0.3 T PROTEIN (test code = 1615392978) 7.2 g/dL 6.3-8.2 ALBUMIN (test code = 4360486782) 3.9 g/dL 3.5-5.0 ALK PHOS (test code = 2892865196) 447 U/L 34-122 H ALTv (test code = 1742-6) 89 U/L 5-35 H AST(SGOT) (test code = 3499427585) 69 U/L 13-40 H Lab Interpretation (test code = Abnormal 92808-7) [facility]2022[facility]-25 10:30:13 Test Item Value Reference Range Interpretation Comments MAGNESIUM (test code = 0267213025) 1.6 mg/dL 1.7-2.4 L Lab Interpretation (test code = Abnormal 44392-4) [facility] CenterANTI-NUCLEAR ANTIBODY [id number] 01:05:07 Test Item Value Reference Range Interpretation Comments LESLY Titer by IFA >=1:1280 (test code = 0143496657) LESLY Pattern Speckled Cytoplasmic (test code = staining reacti ons 7170637807) observed. KIM (test code = Anti-nuclear KIM) [...] specimen will be held for [address] [facility] AB,IGG [id number] 21:57:55 Test Item Value Reference Range Interpretation Comments F-ACTIN (SMOOTH See_Comment If F-Actin (Smooth Muscle) MUSCLE) AB, Antibody, IgG i s negative, IGG(BEAKER) (test the Smooth Muscle Antibody code = 55293-9) titer by IFA is not performed.REFER ENCE [...] for A IH is strong.Performe d By: [employer] [facility] [address] [place], [place] [address]Sddgcdugrg Director: Praveena Mantilla MD [Automated mess age] The system which ge nerated this result transmit gulshan reference range : 0 - 19 Units. The refe rence range was not used to interpret this result as normal/abnormal . [facility] CenterMITOCHONDRIAL M2 AB, [id number] 21:57:54 Test Item Value Reference Range Interpretation Comments AMA (test code = See_Comment H REFERENCE I NTERVAL: 55174-9) Mitochondrial ( M2) Antibody, IgG ? ?20.0 [...] does not rule out PBC.Perform ed By: [employer] [facility] [address] [place], [place] [address]Fnshqbpyjc Director: Praveena Mantilla MD [Aut omated message] The sy stem which generated this result transmit gulshan reference range : 0.0 - 24.9 Units. The reference range was not used to int erpret this result as normal/abnormal . Lab Interpretation Abnormal (test code = 95684-5) [facility]MAG[facility]UM2022-05-24 09:23:46 Test Item Value Reference Range Interpretation Comments MAGNESIUM (test code = 7163664076) 1.9 mg/dL 1.7-2.4 Lab Interpretation (test code = Normal 06465-3) [facility] METABOLIC PANEL (NA, K, CL, CO2, GLUCOSE, BUN, CREATININE, CA)2021-09-05 09:23:46 Test Item Value Reference Range Interpretation Comments NA (test code = 140 mmol/L 135-145 9252278240) K (test code = 4.5 mmol/L 3.5-5.0 6398814883) CL (test code = 106 mmol/L 98-108 3228393154) CO2 TOTAL (test code 27 mmol/L 23-31 = 1736543941) AGAP (test code = 2-16 1762753698) BUN (test code = 16 mg/dL 7-23 9724049775) GLUCOSE (test code = 89 mg/dL 70-110 2718572662) CREATININE (test code 0.67 mg/dL 0.50-1.04 = 4946744555) CALCIUM (test code = 9.0 mg/dL 8.6-10.6 6655187245) eGFR (test code = mL/min/1.73m2 2623145270) KIM (test code = KIM) Association of [...] or urine or abnormalities in imaging tests). [facility] CenterHEPAT[facility] FUNCTION PANEL (41625) (ALB,T.PRO,BILI T,BU/BC,ALT,AST,ALK PHOS)2021-09-05 09:23:46 Test Item Value Reference Range Interpretation Comments TOTAL BILI (test code = 6659165369) 1.5 mg/dL 0.1-1.1 H BILI UNCON (test code = 0678748386) 0.3 mg/dL 0.1-1.1 BILI CONJ (test code = 3830860192) 0.0 mg/dL 0.0-0.3 T PROTEIN (test code = 2249572712) 7.1 g/dL 6.3-8.2 ALBUMIN (test code = 4418009804) 3.9 g/dL 3.5-5.0 ALK PHOS (test code = 7584509454) 558 U/L 34-122 H ALTv (test code = 1742-6) 112 U/L 5-35 H AST(SGOT) (test code = 7489111268) 82 U/L 13-40 H Lab Interpretation (test code = Abnormal 20136-9) [facility] CenterCBC WITH [id number] 09:09:07 Test Item Value Reference Range Interpretation Comments WBC (test code = See_Comment L [Automated 5390-2) message] The sy stem which generated this [...] RDW-SD (test code = 45.7 fL 39.0-49.9 69560-2) RDW-CV (test code = 13.2 % 12.0-15.5 788-0) PLT (test code = See_Comment L [Automated 777-3) message] The sy stem which generated this result transmitted reference range : 166 - 358 10*3/ ?L. The reference r luca was not used to interpret this result as normal/abnormal . MPV (test code = 9.7 fL 9.5-12.9 35204-7) NRBC/100 WBC (test See_Comment [Automat ed code = 6903831007) message] The system which generated this result transmitted reference range : 0.0 - 10.0 /100 WBCs. The refer ence range was not u sed to interpret th is result as normal/abnormal . NRBC x10^3 (test code <0.01 See_Comment [Auto mated = 8272886148) message] The s ystem which generated this result transmitted reference range : 10*3/?L. The reference range was not used to interpret this result as normal/abnormal . GRAN MAT (NEUT) % 43.5 % (test code = 770-8) IMM GRAN % (test code 0.30 % = 8488183284) LYMPH % (test code = 39.6 % 736-9) MONO % (test code = 12.8 % 5905-5) EOS % (test code = 3.5 % 713-8) BASO % (test code = 0.3 % 706-2) GRAN MAT x10^3(ANC) 1.25 10*3/uL 1.88-7.09 L (test code = 7265226469) IMM GRAN x10^3 (test <0.03 0.00-0.06 code = 4246593416) LYMPH x10^3 (test code 1.14 10*3/uL 1.32-3.29 L = 731-0) MONO x10^3 (test code 0.37 10*3/uL 0.33-0.92 = 742-7) EOS x10^3 (test code = 0.10 10*3/uL 0.03-0.39 711-2) BASO x10^3 (test code <0.03 0.01-0.07 = 704-7) Lab Interpretation Abnormal (test code = 75523-1) [facility] CenterANTI-NUCLEAR ANTIBODY [id number] 22:01:12 Test Item Value Reference Range Interpretation Comments LESLY (test code = Cytoplasmic staining Negative A 2056983782) observed KIM (test code = KIM) Negative: [...] observed." Lab Interpretation (test Abnormal code = 11545-2) [facility] CenterCMV BY [id number] 17:58:08 Test Item Value Reference Range Interpretation Comments Specimen Tested Plasma (test code = 2901010951) CMV PCR - log <2.5 See_Comment [Automated IU/mL (test message] The code = 12077-9) system which generated this result transmitted reference range : <2.5 log IU/mL. The reference range was not used to interpr et this result as normal/abnormal . CMV PCR - IU/mL <300 See_Comment [Automated (test code = message] The 10759-0) system which generated this result transmitted reference range : <300 IU/mL. The reference range was not used to interpret this result as normal/abnormal . CMV PCR - log <2.7 See_Comment [Automated copies/mL (test message] The code = 36780-2) system which generated this result transmitted reference range : <2.7 log copies/mL. The reference range was not used to interpret this result as normal/abnormal . CMV PCR - <516 See_Comment [Automated copies/mL (test message] The code = 21962-8) system which generated this result transmitted reference [...] This is a laboratory-developed test using a skimmer scoop operator labeled ASR (Analyte Specific Reagent) as the reagent providing the specificity of the assay. ?This test was developed and its performance characteristics determined by [facility] Clinical Microbiology Laboratory. It has not [...] clinical laboratory testing. [facility] WITH [id number] 10:05:58 Test Item Value Reference Range Interpretation [...] RDW-SD (test code = 45.3 fL 39.0-49.9 90565-5) RDW-CV (test code = 13.1 % 12.0-15.5 788-0) PLT (test code = See_Comment L [Automated 777-3) message] The sy stem which generated this result transmitted reference range : 166 - 358 10*3/ ?L. The reference r luca was not used to interpret this result as normal/abnormal . MPV (test code = 9.8 fL 9.5-12.9 05582-6) NRBC/100 WBC (test See_Comment [Automat ed code = 9636628604) message] The system which generated this result transmitted reference range : 0.0 - 10.0 /100 WBCs. The refer ence range was not u sed to interpret th is result as normal/abnormal . NRBC x10^3 (test code <0.01 See_Comment [Auto mated = 7299810412) message] The s ystem which generated this result transmitted reference range : 10*3/?L. The reference range was not used to interpret this result as normal/abnormal . GRAN MAT (NEUT) % 46.2 % (test code = 770-8) IMM GRAN % (test code 0.30 % = 7166432416) LYMPH % (test code = 36.6 % 736-9) MONO % (test code = 14.2 % 5905-5) EOS % (test code = 2.4 % 713-8) BASO % (test code = 0.3 % 706-2) GRAN MAT x10^3(ANC) 1.36 10*3/uL 1.88-7.09 L (test code = 3210130230) IMM GRAN x10^3 (test <0.03 0.00-0.06 code = 0683726156) LYMPH x10^3 (test code 1.08 10*3/uL 1.32-3.29 L = 731-0) MONO x10^3 (test code 0.42 10*3/uL 0.33-0.92 = 742-7) EOS x10^3 (test code = 0.07 10*3/uL 0.03-0.39 711-2) BASO x10^3 (test code <0.03 0.01-0.07 = 704-7) Lab Interpretation Abnormal (test code = 88215-1) [facility]MAG[facility]2022-[facility]-23 09:55:52 Test Item Value Reference Range Interpretation Comments MAGNESIUM (test code = 0504958635) 2.0 mg/dL 1.7-2.4 Lab Interpretation (test code = Normal 98691-2) [facility] (NA, K, CL, CO2, GLUCOSE, BUN, CREATININE, CA)2021-09-04 09:55:52 Test Item Value Reference Range Interpretation Comments NA (test code = 140 mmol/L 135-145 5950412548) K (test code = 4.2 mmol/L 3.5-5.0 1573056661) CL (test code = 107 mmol/L 98-108 5641372623) CO2 TOTAL (test code 26 mmol/L 23-31 = 6320256832) AGAP (test code = 2-16 2873842660) BUN (test code = 20 mg/dL 7-23 8324358436) GLUCOSE (test code = 106 mg/dL 70-110 8263186911) CREATININE (test code 0.86 mg/dL 0.50-1.04 = 6291621000) CALCIUM (test code = 8.8 mg/dL 8.6-10.6 0138798107) eGFR (test code = mL/min/1.73m2 7417549022) KIM (test code = KIM) Association of [...] or urine or abnormalities in imaging tests). [facility] CenterHEPAT[facility] FUNCTION PANEL (40330) (ALB,T.PRO,BILI T,BU/BC,ALT,AST,ALK PHOS)2021-09-04 09:55:52 Test Item Value Reference Range Interpretation Comments TOTAL BILI (test code = 2091465112) 1.8 mg/dL 0.1-1.1 H BILI UNCON (test code = 8607095913) 0.6 mg/dL 0.1-1.1 BILI CONJ (test code = 9602486940) 0.0 mg/dL 0.0-0.3 T PROTEIN (test code = 7487426161) 7.1 g/dL 6.3-8.2 ALBUMIN (test code = 1243428501) 3.9 g/dL 3.5-5.0 ALK PHOS (test code = 5627455515) 624 U/L 34-122 H ALTv (test code = 1742-6) 149 U/L 5-35 H AST(SGOT) (test code = 0168881450) 120 U/L 13-40 H Lab Interpretation (test code = Abnormal 22256-2) [facility] WITH [id number] 10:18:25 Test Item Value Reference Range Interpretation [...] RDW-SD (test code = 46.3 fL 39.0-49.9 36061-0) RDW-CV (test code = 13.5 % 12.0-15.5 788-0) PLT (test code = See_Comment L [Automated 777-3) message] The sy stem which generated this result transmitted reference range : 166 - 358 10*3/ ?L. The reference r luca was not used to interpret this result as normal/abnormal . MPV (test code = 9.5 fL 9.5-12.9 23370-7) NRBC/100 WBC (test See_Comment [Automat ed code = 8287543049) message] The system which generated this result transmitted reference range : 0.0 - 10.0 /100 WBCs. The refer ence range was not u sed to interpret th is result as normal/abnormal . NRBC x10^3 (test code <0.01 See_Comment [Auto mated = 9580692996) message] The s ystem which generated this result transmitted reference range : 10*3/?L. The reference range was not used to interpret this result as normal/abnormal . GRAN MAT (NEUT) % 49.9 % (test code = 770-8) IMM GRAN % (test code 0.00 % = 9013531641) LYMPH % (test code = 33.0 % 736-9) MONO % (test code = 14.2 % 5905-5) EOS % (test code = 2.6 % 713-8) BASO % (test code = 0.3 % 706-2) GRAN MAT x10^3(ANC) 1.51 10*3/uL 1.88-7.09 L (test code = 6429435455) IMM GRAN x10^3 (test <0.03 0.00-0.06 code = 7049966187) LYMPH x10^3 (test code 1.00 10*3/uL 1.32-3.29 L = 731-0) MONO x10^3 (test code 0.43 10*3/uL 0.33-0.92 = 742-7) EOS x10^3 (test code = 0.08 10*3/uL 0.03-0.39 711-2) BASO x10^3 (test code <0.03 0.01-0.07 = 704-7) Lab Interpretation Abnormal (test code = 19938-0) [facility]. METABOLIC PANEL (72782)2021-09-03 10:04:46 Test Item Value Reference Range Interpretation Comments NA (test code = 140 mmol/L 135-145 6166137618) K (test code = 4.5 mmol/L 3.5-5.0 3865542790) CL (test code = 107 mmol/L 98-108 7097718786) CO2 TOTAL (test code = 22 mmol/L 23-31 L 9737574141) AGAP (test code = 2-16 7198956392) BUN (test code = 20 mg/dL 7-23 3479558827) GLUCOSE (test code = 84 mg/dL 70-110 1419904410) CREATININE (test code = 0.92 mg/dL 0.50-1.04 9410861312) TOTAL BILI (test code = 2.2 mg/dL 0.1-1.1 H 9385607111) CALCIUM (test code = 8.9 mg/dL 8.6-10.6 5955577066) T PROTEIN (test code = 7.4 g/dL 6.3-8.2 5073665879) ALBUMIN (test code = 4.1 g/dL 3.5-5.0 4087073292) ALK PHOS (test code = 658 U/L 34-122 H 5687481747) ALTv (test code = 169 U/L 5-35 H 1742-6) AST(SGOT) (test code = 163 U/L 13-40 H 3680725293) eGFR (test code = mL/min/1.73m2 5956418817) KIM (test code = KIM) Association of [...] tests). Lab Interpretation Abnormal (test code = 50834-8) [facility]MAG[facility]2022-[facility]-22 10:04:46 Test Item Value Reference Range Interpretation Comments MAGNESIUM (test code = 3712254415) 2.0 mg/dL 1.7-2.4 Lab Interpretation (test code = Normal 64500-1) [facility] CenterALPHA 1 [id number] 19:24:55 Test Item Value Reference Range Interpretation Comments Anti-Trypsin (test code = 174 mg/dL 83-199 7095237021) Lab Interpretation (test code = Normal 29027-1) [facility] CenterCERULOPLASMIN2022-05-21 19:24:50 Test Item Value Reference Range Interpretation Comments CERULO (test code = 2312252321) 48 mg/dL 25-63 Lab Interpretation (test code = Normal 84468-4) [facility] CenterIMMUNOGLOBULIN [id number] 19:24:45 Test Item Value Reference Range Interpretation Comments IgG (test code = 3736166572) 1210 mg/dL 636-1600 Lab Interpretation (test code = Normal 35337-6) [facility] CenterHAV ANTIBODY (IGG AND IGM)2021-09-02 18:39:52 Test Item Value Reference Range Interpretation Comments HAV Total (test code Positive = 7180125343) HAVT Semi-Quantitative (test code = 2892314466) KIM (test code = KIM) Indicates past or present infection with HAV or exposure to HAV due to vaccination. [facility] CenterFERRITIN [id number] 18:15:24 Test Item Value Reference Range Interpretation Comments FERRITIN (test code = 63.8 ng/mL 11.0-264.0 5842151357) KIM (test code = KIM) Biotin has been reported to cause a negative bias, interpret results relative to patient's use of biotin. Lab Interpretation (test Normal code = 11265-1) [facility] CenterHEPATITIS B SURFACE [id number] 18:11:43 Test Item Value Reference Range Interpretation Comments HBsAg Semi-Quantitative (test code = Negative Negative 5195-3) [facility] CenterHEPATITIS B SURFACE [id number] 17:43:23 Test Item Value Reference Range Interpretation Comments HBsAB (test code = Negative 5191794025) HBsAb mIU/mL Semi-Quantitative (test code = 1468763222) KIM (test code = Interpretation: KIM) ?Hepatitis B Surface Antibody ? Negative - Patient is considered to be not immune to infection with HBV. ? ? Positive - Anti-HBs detected at greater than or equal to 12 mIU/mL. ?Patient is considered to be immune to infection with HBV. ? [facility] CenterHBC ANTIBODY (IGM & IGG)2021-09-02 17:43:23 Test Item Value Reference Range Interpretation Comments HBC (test code = 3843485486) Negative HBC Semi-Quantitative (test code = 3258872388) [facility] CenterHCV [id number] 17:43:23 Test Item Value Reference Range Interpretation Comments HCV Ab (test code = 11703-3) Negative HCV Semi-Quantitative (test code = 29916-2) [facility]MAG[facility]UM2022-05-21 17:40:42 Test Item Value Reference Range Interpretation Comments MAGNESIUM (test code = 4663926765) 1.9 mg/dL 1.7-2.4 Lab Interpretation (test code = Normal 88929-0) [facility] CenterPHOSPHORUS2022-05-21 17:40:42 Test Item Value Reference Range Interpretation Comments PHOSPHORUS (test code = 1272577492) 4.0 mg/dL 2.5-5.0 Lab Interpretation (test code = Normal 52217-1) [facility] CenterCOMP. METABOLIC PANEL (23209)2021-09-02 17:40:42 Test Item Value Reference Range Interpretation Comments NA (test code = 138 mmol/L 135-145 8118380277) K (test code = 4.2 mmol/L 3.5-5.0 5475993491) CL (test code = 106 mmol/L 98-108 8942946833) CO2 TOTAL (test code = 24 mmol/L 23-31 2039834849) AGAP (test code = 2-16 6742678789) BUN (test code = 14 mg/dL 7-23 4033304308) GLUCOSE (test code = 88 mg/dL 70-110 3953067075) CREATININE (test code = 0.60 mg/dL 0.50-1.04 6805907809) TOTAL BILI (test code = 2.1 mg/dL 0.1-1.1 H 3313143165) CALCIUM (test code = 8.8 mg/dL 8.6-10.6 3983664194) T PROTEIN (test code = 7.3 g/dL 6.3-8.2 2654590672) ALBUMIN (test code = 4.0 g/dL 3.5-5.0 9866286114) ALK PHOS (test code = 659 U/L 34-122 H 1537882950) ALTv (test code = 183 U/L 5-35 H 1742-6) AST(SGOT) (test code = 167 U/L 13-40 H 8696617126) eGFR (test code = mL/min/1.73m2 1873987845) KIM (test code = KIM) Association of [...] tests). Lab Interpretation Abnormal (test code = 22429-7) [facility] CenterACETAMINOPHEN2022-05-21 16:56:49 Test Item Value Reference Range Interpretation Comments ACETAMINOP (test code = <10.0 10.0-30.0 L 0512500491) KIM (test code = KIM) Toxic: Greater than 200 ug/mL @ 4 hour post ingestion or greater than 50 ug/mL @ 12 hour post ingestion Lab Interpretation (test Abnormal code = 82305-0) [facility] WITH [id number] 16:41:43 Test Item Value Reference Range Interpretation [...] RDW-SD (test code = 47.5 fL 39.0-49.9 45589-5) RDW-CV (test code = 13.9 % 12.0-15.5 788-0) PLT (test code = See_Comment L [Automated 777-3) message] The sy stem which generated this result transmitted reference range : 166 - 358 10*3/ ?L. The reference r luca was not used to interpret this result as normal/abnormal . MPV (test code = 9.9 fL 9.5-12.9 86531-2) NRBC/100 WBC (test See_Comment [Automat ed code = 7696904126) message] The system which generated this result transmitted reference range : 0.0 - 10.0 /100 WBCs. The refer ence range was not u sed to interpret th is result as normal/abnormal . NRBC x10^3 (test code <0.01 See_Comment [Auto mated = 6030921113) message] The s ystem which generated this result transmitted reference range : 10*3/?L. The reference range was not used to interpret this result as normal/abnormal . GRAN MAT (NEUT) % 47.4 % (test code = 770-8) IMM GRAN % (test code 0.30 % = 9913484447) LYMPH % (test code = 37.4 % 736-9) MONO % (test code = 12.1 % 5905-5) EOS % (test code = 2.5 % 713-8) BASO % (test code = 0.3 % 706-2) GRAN MAT x10^3(ANC) 1.52 10*3/uL 1.88-7.09 L (test code = 1672932685) IMM GRAN x10^3 (test <0.03 0.00-0.06 code = 4536533384) LYMPH x10^3 (test code 1.20 10*3/uL 1.32-3.29 L = 731-0) MONO x10^3 (test code 0.39 10*3/uL 0.33-0.92 = 742-7) EOS x10^3 (test code = 0.08 10*3/uL 0.03-0.39 711-2) BASO x10^3 (test code <0.03 0.01-0.07 = 704-7) Lab Interpretation Abnormal (test code = 46469-5) [facility] CenterProthrombin Time (PTT) / [id number] 15:58:16 Test Item Value Reference Range Interpretation [...] tions. Lab Interpretation (test Normal code = 36444-8) [facility] CenterTROPONIN [id number] 19:18:37 Test Item Value Reference Interpretation Comments Range TROPONIN I (test 0.004 ng/mL See_Comment [Automated code = 0255897783) message] The system which generated this result [...] biotin. Lab Interpretation Normal (test code = 50512-7) [facility] CenterCOMP. METABOLIC PANEL (46600)2021-09-01 19:07:17 Test Item Value Reference Range Interpretation Comments NA (test code = 139 mmol/L 135-145 1141778114) K (test code = 4.5 mmol/L 3.5-5.0 1534628621) CL (test code = 104 mmol/L 98-108 2797255866) CO2 TOTAL (test code = 21 mmol/L 23-31 L 1822498425) AGAP (test code = 2-16 9661379871) BUN (test code = 17 mg/dL 7-23 3860247912) GLUCOSE (test code = 90 mg/dL 70-110 7806293834) CREATININE (test code = 0.63 mg/dL 0.50-1.04 1365077850) TOTAL BILI (test code = 1.6 mg/dL 0.1-1.1 H 2176447959) CALCIUM (test code = 9.5 mg/dL 8.6-10.6 1140627974) T PROTEIN (test code = 9.0 g/dL 6.3-8.2 H 8976672746) ALBUMIN (test code = 4.9 g/dL 3.5-5.0 5391304896) ALK PHOS (test code = 820 U/L 34-122 H 9276271991) ALTv (test code = 238 U/L 5-35 H 1742-6) AST(SGOT) (test code = 256 U/L 13-40 H 5017117546) eGFR (test code = mL/min/1.73m2 5362591774) KIM (test code = KIM) Association of [...] tests). Lab Interpretation Abnormal (test code = 68133-5) [facility] CenterMAGNESIUM2022-05-20 19:07:17 Test Item Value Reference Range Interpretation Comments MAGNESIUM (test code = 1504490858) 1.8 mg/dL 1.7-2.4 Lab Interpretation (test code = Normal 67049-0) [facility] CenterLIPASE2022-05-20 19:06:57 Test Item Value Reference Range Interpretation Comments LIPASE (test code = 9653167353) 85 U/L 0-220 Lab Interpretation (test code = Normal 60821-8) [facility] CenterCB WITH [id number] 18:56:38 Test Item Value Reference Range Interpretation Comments WBC (test code = See_Comment [Automated 8990-2) message] The sy stem which generated this result transmitted reference range : 4.30 - 11.10 10*3/?L. The reference range was not used to interpret this result as normal/abnormal . RBC (test code = See_Comment [Automated 009-8) message] The sy stem which [...] RDW-SD (test code = 48.2 fL 39.0-49.9 94487-3) RDW-CV (test code = 14.1 % 12.0-15.5 788-0) PLT (test code = See_Comment [Automated 657-3) message] The sy stem which generated this result transmitted reference range : 166 - 358 10*3/ ?L. The reference r luca was not used to interpret this result as normal/abnormal . MPV (test code = 9.9 fL 9.5-12.9 26344-9) NRBC/100 WBC (test See_Comment [Automat ed code = 4104343989) message] The system which generated this result transmitted reference range : 0.0 - 10.0 /100 WBCs. The refer ence range was not u sed to interpret th is result as normal/abnormal . NRBC x10^3 (test code <0.01 See_Comment [Auto mated = 8186865094) message] The s ystem which generated this result transmitted reference range : 10*3/?L. The reference range was not used to interpret this result as normal/abnormal . GRAN MAT (NEUT) % 65.1 % (test code = 770-8) IMM GRAN % (test code 0.40 % = 5836025448) LYMPH % (test code = 21.5 % 736-9) MONO % (test code = 11.0 % 5905-5) EOS % (test code = 1.6 % 713-8) BASO % (test code = 0.4 % 706-2) GRAN MAT x10^3(ANC) 3.33 10*3/uL 1.88-7.09 (test code = [id number]) IMM GRAN x10^3 (test <0.03 0.00-0.06 code = [id number]) LYMPH x10^3 (test code 1.10 10*3/uL 1.32-3.29 L = 731-0) MONO x10^3 (test code 0.56 10*3/uL 0.33-0.92 = 742-7) EOS x10^3 (test code = 0.08 10*3/uL 0.03-0.39 711-2) BASO x10^3 (test code <0.03 0.01-0.07 = 704-7) Lab Interpretation Abnormal (test code = 67411-2) [id number] Test Item Value Reference Interpretation Comments Range TROPONIN I (test 0.003 ng/mL See_Comment [Automated code = [id number]) message] The system which generated this result [...] biotin. Lab Interpretation Normal (test code = 78956-1) [facility]. METABOLIC PANEL (79577)2021-08-27 16:42:16 Test Item Value Reference Range Interpretation Comments NA (test code = 139 mmol/L 135-145 3764007728) K (test code = 4.2 mmol/L 3.5-5.0 7597038344) CL (test code = 104 mmol/L 98-108 8755796814) CO2 TOTAL (test code = 23 mmol/L 23-31 8301774331) AGAP (test code = 2-16 0730791615) BUN (test code = 12 mg/dL 7-23 1011161825) GLUCOSE (test code = 91 mg/dL 70-110 0185364811) CREATININE (test code = 0.52 mg/dL 0.50-1.04 1537662535) TOTAL BILI (test code = 1.2 mg/dL 0.1-1.1 H 4825452525) CALCIUM (test code = 9.1 mg/dL 8.6-10.6 8866832141) T PROTEIN (test code = 7.7 g/dL 6.3-8.2 9905393873) ALBUMIN (test code = 4.3 g/dL 3.5-5.0 2535639829) ALK PHOS (test code = 530 U/L 34-122 H 0008901876) ALTv (test code = 84 U/L 5-35 H 1742-6) AST(SGOT) (test code = 93 U/L 13-40 H 2581780278) eGFR (test code = mL/min/1.73m2 8971227524) KIM (test code = KIM) Association of [...] tests). Lab Interpretation Abnormal (test code = 59019-0) [facility] Test Item Value Reference Range Interpretation Comments LIPASE (test code = 8500281702) 67 U/L 0-220 Lab Interpretation (test code = Normal 33769-6) [facility] [id number] 16:30:44 Test Item Value Reference Range Interpretation Comments WBC (test code = See_Comment [Automated 0577-2) message] The sy stem which generated this result transmitted reference range : 4.30 - 11.10 10*3/?L. The reference range was not used to interpret this result as normal/abnormal . RBC (test code = See_Comment L [Automated 739-8) message] The sy stem which generated this [...] RDW-SD (test code = 49.4 fL 39.0-49.9 15881-9) RDW-CV (test code = 14.4 % 12.0-15.5 788-0) PLT (test code = See_Comment L [Automated 777-3) message] The sy stem which generated this result transmitted reference range : 166 - 358 10*3/ ?L. The reference r luca was not used to interpret this result as normal/abnormal . MPV (test code = 10.1 fL 9.5-12.9 23273-7) IPF % (test code = 2.6 % 1.3-7.7 Platelet count 0525683408) measured by fluorescence method. NRBC/100 WBC (test See_Comment [Automat ed code = 1316225480) message] The system which generated this result transmitted reference range : 0.0 - 10.0 /100 WBCs. The refer ence range was not u sed to interpret th is result as normal/abnormal . NRBC x10^3 (test code <0.01 See_Comment [Auto mated = 1704192389) message] The s ystem which generated this result transmitted reference range : 10*3/?L. The reference range was not used to interpret this result as normal/abnormal . GRAN MAT (NEUT) % 70.3 % (test code = 770-8) IMM GRAN % (test code 0.20 % = 3718531130) LYMPH % (test code = 21.3 % 736-9) MONO % (test code = 6.9 % 5905-5) EOS % (test code = 1.1 % 713-8) BASO % (test code = 0.2 % 706-2) GRAN MAT x10^3(ANC) 3.14 10*3/uL 1.88-7.09 (test code = 6630309524) IMM GRAN x10^3 (test <0.03 0.00-0.06 code = 4194312083) LYMPH x10^3 (test code 0.95 10*3/uL 1.32-3.29 L = 731-0) MONO x10^3 (test code 0.31 10*3/uL 0.33-0.92 L = 742-7) EOS x10^3 (test code = 0.05 10*3/uL 0.03-0.39 711-2) BASO x10^3 (test code <0.03 0.01-0.07 = 704-7) Lab Interpretation Abnormal (test code = 55562-8) [facility] GLUCOSE (AUTOMATED)2021-07-28 22:32:51 Test Item Value Reference Range Interpretation Comments POCT GLU (test code = 3292538202) 94 mg/dL 70-110 Lab Interpretation (test code = Normal 91996-2) [facility] GLUCOSE (AUTOMATED)2021-07-28 16:56:05 Test Item Value Reference Range Interpretation Comments POCT GLU (test code = 1688150414) 107 mg/dL 70-110 Lab Interpretation (test code = Normal 34040-9) [facility] GLUCOSE (AUTOMATED)2021-07-28 13:01:41 Test Item Value Reference Range Interpretation Comments POCT GLU (test code = 0682822400) 104 mg/dL 70-110 Lab Interpretation (test code = Normal 27738-0) [facility]OLIC [facility] (71385)2021-07-28 11:55:38 Test Item Value Reference Range Interpretation Comments NA (test code = 140 mmol/L 135-145 5374702929) K (test code = 3.6 mmol/L 3.5-5.0 6702674735) CL (test code = 108 mmol/L 98-108 5610609208) CO2 TOTAL (test code = 27 mmol/L 23-31 6972310644) AGAP (test code = 2-16 1602575314) BUN (test code = 3 mg/dL 7-23 L 8994777288) GLUCOSE (test code = 93 mg/dL 70-110 1540860992) CREATININE (test code = 0.49 mg/dL 0.50-1.04 L 0975775219) TOTAL BILI (test code = 1.0 mg/dL 0.1-1.1 7011484067) CALCIUM (test code = 8.3 mg/dL 8.6-10.6 L 7594275279) T PROTEIN (test code = 6.5 g/dL 6.3-8.2 6080249583) ALBUMIN (test code = 3.6 g/dL 3.5-5.0 0547317730) ALK PHOS (test code = 431 U/L 34-122 H 3829898271) ALTv (test code = 80 U/L 5-35 H 1742-6) AST(SGOT) (test code = 74 U/L 13-40 H 2619573567) eGFR (test code = mL/min/1.73m2 4113510200) KIM (test code = KIM) Association of [...] tests). Lab Interpretation Abnormal (test code = 92208-1) [facility] 11:55:38 Test Item Value Reference Range Interpretation Comments LIPASE (test code = 6662805887) 74 U/L 0-220 Lab Interpretation (test code = Normal 04939-9) [facility] [id number] 10:40:07 Test Item Value Reference Range Interpretation [...] RDW-SD (test code = 49.7 fL 39.0-49.9 49593-8) RDW-CV (test code = 14.3 % 12.0-15.5 788-0) PLT (test code = See_Comment L [Automated 777-3) message] The sy stem which generated this result transmitted reference range : 166 - 358 10*3/ ?L. The reference r luca was not used to interpret this result as normal/abnormal . MPV (test code = 9.3 fL 9.5-12.9 L 58099-0) NRBC/100 WBC (test See_Comment [Automat ed code = 3062098725) message] The system which generated this result transmitted reference range : 0.0 - 10.0 /100 WBCs. The refer ence range was not u sed to interpret th is result as normal/abnormal . NRBC x10^3 (test code <0.01 See_Comment [Auto mated = 2600229754) message] The s ystem which generated this result transmitted reference range : 10*3/?L. The reference range was not used to interpret this result as normal/abnormal . GRAN MAT (NEUT) % 49.4 % (test code = 770-8) IMM GRAN % (test code 0.00 % = 0691248048) LYMPH % (test code = 38.0 % 736-9) MONO % (test code = 10.0 % 5905-5) EOS % (test code = 2.2 % 713-8) BASO % (test code = 0.4 % 706-2) GRAN MAT x10^3(ANC) 1.34 10*3/uL 1.88-7.09 L (test code = 4953061752) IMM GRAN x10^3 (test <0.03 0.00-0.06 code = 3068478205) LYMPH x10^3 (test code 1.03 10*3/uL 1.32-3.29 L = 731-0) MONO x10^3 (test code 0.27 10*3/uL 0.33-0.92 L = 742-7) EOS x10^3 (test code = 0.06 10*3/uL 0.03-0.39 711-2) BASO x10^3 (test code <0.03 0.01-0.07 = 704-7) Lab Interpretation Abnormal (test code = 47577-8) [facility] GLUCOSE (AUTOMATED)2021-07-28 09:10:56 Test Item Value Reference Range Interpretation Comments POCT GLU (test code = 1068888973) 80 mg/dL 70-110 Lab Interpretation (test code = Normal 99482-3) [facility] GLUCOSE (AUTOMATED)2021-07-28 04:43:28 Test Item Value Reference Range Interpretation Comments POCT GLU (test code = 1321849943) 115 mg/dL 70-110 H Lab Interpretation (test code = Abnormal 83752-7) [facility] GLUCOSE (AUTOMATED)2021-07-28 01:22:31 Test Item Value Reference Range Interpretation Comments POCT GLU (test code = 6858413711) 94 mg/dL 70-110 Lab Interpretation (test code = Normal 35083-4) [facility] GLUCOSE (AUTOMATED)2021-07-27 21:50:22 Test Item Value Reference Range Interpretation Comments POCT GLU (test code = 6421681209) 108 mg/dL 70-110 Lab Interpretation (test code = Normal 54480-7) [facility] GLUCOSE (AUTOMATED)2021-07-27 17:02:26 Test Item Value Reference Range Interpretation Comments POCT GLU (test code = 9720862091) 102 mg/dL 70-110 Lab Interpretation (test code = Normal 91160-1) [facility] GLUCOSE (AUTOMATED)2021-07-27 12:47:28 Test Item Value Reference Range Interpretation Comments POCT GLU (test code = 3461655972) 106 mg/dL 70-110 Lab Interpretation (test code = Normal 64386-7) [facility] WITH [id number] 12:34:02 Test Item Value Reference Range Interpretation [...] RDW-SD (test code = 47.6 fL 39.0-49.9 15686-1) RDW-CV (test code = 14.0 % 12.0-15.5 788-0) PLT (test code = See_Comment L [Automated 777-3) message] The sy stem which generated this result transmitted reference range : 166 - 358 10*3/ ?L. The reference r luca was not used to interpret this result as normal/abnormal . MPV (test code = 9.5 fL 9.5-12.9 58633-0) NRBC/100 WBC (test See_Comment [Automat ed code = 8507789617) message] The system which generated this result transmitted reference range : 0.0 - 10.0 /100 WBCs. The refer ence range was not u sed to interpret th is result as normal/abnormal . NRBC x10^3 (test code <0.01 See_Comment [Auto mated = 2664841473) message] The s ystem which generated this result transmitted reference range : 10*3/?L. The reference range was not used to interpret this result as normal/abnormal . GRAN MAT (NEUT) % 56.3 % (test code = 770-8) IMM GRAN % (test code 0.80 % = 8715525009) LYMPH % (test code = 33.5 % 736-9) MONO % (test code = 8.6 % 5905-5) EOS % (test code = 0.4 % 713-8) BASO % (test code = 0.4 % 706-2) GRAN MAT x10^3(ANC) 1.50 10*3/uL 1.88-7.09 L (test code = 0993529299) IMM GRAN x10^3 (test <0.03 0.00-0.06 code = 7627034542) LYMPH x10^3 (test code 0.89 10*3/uL 1.32-3.29 L = 731-0) MONO x10^3 (test code 0.23 10*3/uL 0.33-0.92 L = 742-7) EOS x10^3 (test code = <0.03 0.03-0.39 L 711-2) BASO x10^3 (test code <0.03 0.01-0.07 = 704-7) Lab Interpretation Abnormal (test code = 69801-6) [facility] 11:06:32 Test Item Value Reference Range Interpretation Comments MAGNESIUM (test code = 7332470907) 2.0 mg/dL 1.7-2.4 Lab Interpretation (test code = Normal 22903-7) [facility] METABOLIC PANEL (NA, K, CL, CO2, GLUCOSE, BUN, CREATININE, CA)2021-07-27 11:06:32 Test Item Value Reference Range Interpretation Comments NA (test code = 141 mmol/L 135-145 3784566105) K (test code = 3.8 mmol/L 3.5-5.0 1598879026) CL (test code = 107 mmol/L 98-108 3586638638) CO2 TOTAL (test code = 25 mmol/L 23-31 7287898880) AGAP (test code = 2-16 3397864312) BUN (test code = 6 mg/dL 7-23 L 6612857569) GLUCOSE (test code = 100 mg/dL 70-110 0520811504) CREATININE (test code = 0.46 mg/dL 0.50-1.04 L 5409809450) CALCIUM (test code = 8.6 mg/dL 8.6-10.6 6548076935) eGFR (test code = mL/min/1.73m2 3772818373) KIM (test code = KIM) Association of [...] tests). Lab Interpretation Abnormal (test code = 32085-6) [facility] GLUCOSE (AUTOMATED)2021-07-27 08:58:50 Test Item Value Reference Range Interpretation Comments POCT GLU (test code = 6563973384) 95 mg/dL 70-110 Lab Interpretation (test code = Normal 90855-0) [facility] GLUCOSE (AUTOMATED)2021-07-27 06:51:37 Test Item Value Reference Range Interpretation Comments POCT GLU (test code = 2174056866) 146 mg/dL 70-110 H Lab Interpretation (test code = Abnormal 67350-2) [facility] GLUCOSE (AUTOMATED)2021-07-27 01:52:10 Test Item Value Reference Range Interpretation Comments POCT GLU (test code = 4914628674) 111 mg/dL 70-110 H Lab Interpretation (test code = Abnormal 71456-8) [facility] Test Item Value Reference Range Interpretation Comments MAGNESIUM (test code = 3696377079) 1.5 mg/dL 1.7-2.4 L Lab Interpretation (test code = Abnormal 09073-8) [facility] GLUCOSE (AUTOMATED)2021-07-26 22:04:12 Test Item Value Reference Range Interpretation Comments POCT GLU (test code = 7036752929) 106 mg/dL 70-110 Lab Interpretation (test code = Normal 90022-8) [facility] GLUCOSE (AUTOMATED)2021-07-26 16:59:07 Test Item Value Reference Range Interpretation Comments POCT GLU (test code = 1266717900) 80 mg/dL 70-110 Lab Interpretation (test code = Normal 54405-0) [facility] METABOLIC PANEL (NA, K, CL, CO2, GLUCOSE, BUN, CREATININE, CA)2021-07-26 12:05:38 Test Item Value Reference Range Interpretation Comments NA (test code = 137 mmol/L 135-145 9587227783) K (test code = 3.9 mmol/L 3.5-5.0 5784385518) CL (test code = 104 mmol/L 98-108 1298000609) CO2 TOTAL (test code = 25 mmol/L 23-31 6974272243) AGAP (test code = 2-16 7373344469) BUN (test code = 8 mg/dL 7-23 4783431877) GLUCOSE (test code = 100 mg/dL 70-110 9576670651) CREATININE (test code = 0.45 mg/dL 0.50-1.04 L 6106303329) CALCIUM (test code = 8.7 mg/dL 8.6-10.6 8636215015) eGFR (test code = mL/min/1.73m2 7245576839) KIM (test code = KIM) Association of [...] tests). Lab Interpretation Abnormal (test code = 98290-7) [facility] 12:04:57 Test Item Value Reference Range Interpretation Comments LIPASE (test code = 5975798522) 58 U/L 0-220 Lab Interpretation (test code = Normal 39285-4) [facility] [id number] 10:22:45 Test Item Value Reference Range Interpretation [...] RDW-SD (test code = 45.4 fL 39.0-49.9 11504-5) RDW-CV (test code = 13.7 % 12.0-15.5 788-0) PLT (test code = See_Comment L [Automated 777-3) message] The sy stem which generated this result transmitted reference range : 166 - 358 10*3/ ?L. The reference r luca was not used to interpret this result as normal/abnormal . MPV (test code = 9.4 fL 9.5-12.9 L 02465-3) NRBC/100 WBC (test See_Comment [Automat ed code = 7423449723) message] The system which generated this result transmitted reference range : 0.0 - 10.0 /100 WBCs. The refer ence range was not u sed to interpret th is result as normal/abnormal . NRBC x10^3 (test code <0.01 See_Comment [Auto mated = 9465901660) message] The s ystem which generated this result transmitted reference range : 10*3/?L. The reference range was not used to interpret this result as normal/abnormal . GRAN MAT (NEUT) % 67.8 % (test code = 770-8) IMM GRAN % (test code 0.60 % = 5026208054) LYMPH % (test code = 24.4 % 736-9) MONO % (test code = 6.6 % 5905-5) EOS % (test code = 0.3 % 713-8) BASO % (test code = 0.3 % 706-2) GRAN MAT x10^3(ANC) 2.25 10*3/uL 1.88-7.09 (test code = 8409056384) IMM GRAN x10^3 (test <0.03 0.00-0.06 code = 0157136724) LYMPH x10^3 (test code 0.81 10*3/uL 1.32-3.29 L = 731-0) MONO x10^3 (test code 0.22 10*3/uL 0.33-0.92 L = 742-7) EOS x10^3 (test code = <0.03 0.03-0.39 L 711-2) BASO x10^3 (test code <0.03 0.01-0.07 = 704-7) Lab Interpretation Abnormal (test code = 56092-4) [facility]75187[facility] (ALB,T.PRO,BILI T,BU/BC,ALT,AST,ALK PHOS)2021-07-25 16:47:05 Test Item Value Reference Range Interpretation Comments TOTAL BILI (test code = 6191132430) 1.1 mg/dL 0.1-1.1 BILI UNCON (test code = 4483063379) 0.4 mg/dL 0.1-1.1 BILI CONJ (test code = 1144051681) 0.0 mg/dL 0.0-0.3 T PROTEIN (test code = 6678427070) 4.0 g/dL 6.3-8.2 L ALBUMIN (test code = 7328132357) 1.9 g/dL 3.5-5.0 L ALK PHOS (test code = 9823025136) 229 U/L 34-122 H ALTv (test code = 1742-6) 59 U/L 5-35 H AST(SGOT) (test code = 8696912170) 68 U/L 13-40 H Lab Interpretation (test code = Abnormal 50573-3) [facility]2021-07-25 14:21:54 Test Item Value Reference Range Interpretation Comments POCT GLU (test code = 9733301561) 113 mg/dL 70-110 H Lab Interpretation (test code = Abnormal 83681-2) [facility] METABOLIC PANEL (NA, K, CL, CO2, GLUCOSE, BUN, CREATININE, CA)2021-07-25 14:06:58 Test Item Value Reference Range Interpretation Comments NA (test code = 132 mmol/L 135-145 L 2481245637) K (test code = 4.1 mmol/L 3.5-5.0 8616904238) CL (test code = 110 mmol/L 98-108 H 0555964465) CO2 TOTAL (test code = 13 mmol/L 23-31 L 1325097604) AGAP (test code = 2-16 3390828708) BUN (test code = 4 mg/dL 7-23 L 6516519726) GLUCOSE (test code = 48 mg/dL 70-110 LL 4642016449) CREATININE (test code = 0.21 mg/dL 0.50-1.04 L 8032122268) CALCIUM (test code = 6.4 mg/dL 8.6-10.6 L 2672858809) eGFR (test code = mL/min/1.73m2 7447662672) KIM (test code = KIM) Association of [...] tests). Lab Interpretation Abnormal (test code = 27780-0) [facility] WITH [id number] 14:04:42 Test Item Value Reference Range Interpretation Comments WBC (test code = See_Comment L [Automated 5790-2) message] The sy stem which generated this [...] RDW-SD (test code = 46.7 fL 39.0-49.9 34477-4) RDW-CV (test code = 13.6 % 12.0-15.5 788-0) PLT (test code = See_Comment L [Automated 777-3) message] The sy stem which generated this result transmitted reference range : 166 - 358 10*3/ ?L. The reference r luca was not used to interpret this result as normal/abnormal . MPV (test code = 10.8 fL 9.5-12.9 35757-8) NRBC/100 WBC (test See_Comment [Automat ed code = 9928395799) message] The system which generated this result transmitted reference range : 0.0 - 10.0 /100 WBCs. The refer ence range was not u sed to interpret th is result as normal/abnormal . NRBC x10^3 (test code <0.01 See_Comment [Auto mated = 5422590053) message] The s ystem which generated this result transmitted reference range : 10*3/?L. The reference range was not used to interpret this result as normal/abnormal . GRAN MAT (NEUT) % 53.2 % (test code = 770-8) IMM GRAN % (test code 0.40 % = 4574328094) LYMPH % (test code = 34.3 % 736-9) MONO % (test code = 10.0 % 5905-5) EOS % (test code = 1.7 % 713-8) BASO % (test code = 0.4 % 706-2) GRAN MAT x10^3(ANC) 1.27 10*3/uL 1.88-7.09 L (test code = 8843064470) IMM GRAN x10^3 (test <0.03 0.00-0.06 code = 0695965764) LYMPH x10^3 (test code 0.82 10*3/uL 1.32-3.29 L = 731-0) MONO x10^3 (test code 0.24 10*3/uL 0.33-0.92 L = 742-7) EOS x10^3 (test code = 0.04 10*3/uL 0.03-0.39 711-2) BASO x10^3 (test code <0.03 0.01-0.07 = 704-7) Lab Interpretation Abnormal (test code = 60772-2) [facility] CenterMagnesium [id number] 11:34:51 Test Item Value Reference Range Interpretation Comments MAGNESIUM (test code = 9300670835) 1.6 mg/dL 1.7-2.4 L Lab Interpretation (test code = Abnormal 58416-4) [facility] Metabolic Panel (NA, K, CL, CO2, GLUCOSE, BUN, CREATININE, CA)2021-07-24 11:34:31 Test Item Value Reference Range Interpretation Comments NA (test code = 137 mmol/L 135-145 1042167232) K (test code = 4.4 mmol/L 3.5-5.0 5054731446) CL (test code = 106 mmol/L 98-108 0789567875) CO2 TOTAL (test code 23 mmol/L 23-31 = 7143659679) AGAP (test code = 2-16 3062764613) BUN (test code = 14 mg/dL 7-23 0850944569) GLUCOSE (test code = 84 mg/dL 70-110 7376886576) CREATININE (test code 0.54 mg/dL 0.50-1.04 = 2472447554) CALCIUM (test code = 8.7 mg/dL 8.6-10.6 4356473507) eGFR (test code = mL/min/1.73m2 0547928993) KIM (test code = KIM) Association of [...] or urine or abnormalities in imaging tests). [facility]94904[facility] (ALB,T.PRO,BILI T,BU/BC,ALT,AST,ALK PHOS)2021-07-24 11:34:31 Test Item Value Reference Range Interpretation Comments TOTAL BILI (test code = 1345727496) 1.9 mg/dL 0.1-1.1 H BILI UNCON (test code = 7312445386) 0.8 mg/dL 0.1-1.1 BILI CONJ (test code = 2963882302) 0.0 mg/dL 0.0-0.3 T PROTEIN (test code = 7186333155) 8.0 g/dL 6.3-8.2 ALBUMIN (test code = 9315508891) 4.3 g/dL 3.5-5.0 ALK PHOS (test code = 5150153504) 512 U/L 34-122 H ALTv (test code = 1742-6) 111 U/L 5-35 H AST(SGOT) (test code = 3296862100) 107 U/L 13-40 H Lab Interpretation (test code = Abnormal 82172-8) [facility] with [id number] 10:17:09 Test Item Value Reference Range Interpretation [...] RDW-SD (test code = 47.5 fL 39.0-49.9 49311-9) RDW-CV (test code = 13.9 % 12.0-15.5 788-0) PLT (test code = See_Comment L [Automated 777-3) message] The sy stem which generated this result transmitted reference range : 166 - 358 10*3/ ?L. The reference r luca was not used to interpret this result as normal/abnormal . MPV (test code = 11.2 fL 9.5-12.9 17020-8) NRBC/100 WBC (test See_Comment [Automat ed code = 1773497809) message] The system which generated this result transmitted reference range : 0.0 - 10.0 /100 WBCs. The refer ence range was not u sed to interpret th is result as normal/abnormal . NRBC x10^3 (test code <0.01 See_Comment [Auto mated = 1352017489) message] The s ystem which generated this result transmitted reference range : 10*3/?L. The reference range was not used to interpret this result as normal/abnormal . GRAN MAT (NEUT) % 49.4 % (test code = 770-8) IMM GRAN % (test code 0.30 % = 9147707251) LYMPH % (test code = 39.2 % 736-9) MONO % (test code = 8.5 % 5905-5) EOS % (test code = 2.3 % 713-8) BASO % (test code = 0.3 % 706-2) GRAN MAT x10^3(ANC) 1.69 10*3/uL 1.88-7.09 L (test code = 4055892980) IMM GRAN x10^3 (test <0.03 0.00-0.06 code = 6830328344) LYMPH x10^3 (test code 1.34 10*3/uL 1.32-3.29 = 731-0) MONO x10^3 (test code 0.29 10*3/uL 0.33-0.92 L = 742-7) EOS x10^3 (test code = 0.08 10*3/uL 0.03-0.39 711-2) BASO x10^3 (test code <0.03 0.01-0.07 = 704-7) Lab Interpretation Abnormal (test code = 86488-2) [facility] CenterPhosphorus [id number] 01:21:52 Test Item Value Reference Range Interpretation Comments PHOSPHORUS (test code = 8448904484) 3.9 mg/dL 2.5-5.0 Lab Interpretation (test code = Normal 88368-8) [facility] CenterTR[facility] [id number] 22:06:24 Test Item Value Reference Interpretation Comments Range TROPONIN I (test 0.006 ng/mL See_Comment [Automated code = 5881403508) message] The system which generated this result [...] biotin. Lab Interpretation Normal (test code = 75510-1) [facility]20[facility] 21:55:26 Test Item Value Reference Range Interpretation Comments MAGNESIUM (test code = 9299668280) 1.6 mg/dL 1.7-2.4 L Lab Interpretation (test code = Abnormal 30897-4) [facility]. METABOLIC PANEL (05044)2021-07-23 21:55:06 Test Item Value Reference Range Interpretation Comments NA (test code = 139 mmol/L 135-145 9015234119) K (test code = 4.3 mmol/L 3.5-5.0 0975359542) CL (test code = 103 mmol/L 98-108 9641623656) CO2 TOTAL (test code = 24 mmol/L 23-31 9520211617) AGAP (test code = 2-16 5921988336) BUN (test code = 15 mg/dL 7-23 6906514057) GLUCOSE (test code = 102 mg/dL 70-110 1028601347) CREATININE (test code = 0.74 mg/dL 0.50-1.04 8268132670) TOTAL BILI (test code = 2.0 mg/dL 0.1-1.1 H 6147596780) CALCIUM (test code = 9.4 mg/dL 8.6-10.6 6945155676) T PROTEIN (test code = 8.9 g/dL 6.3-8.2 H 0256198893) ALBUMIN (test code = 4.9 g/dL 3.5-5.0 4726711969) ALK PHOS (test code = 653 U/L 34-122 H 2574388612) ALTv (test code = 133 U/L 5-35 H 1742-6) AST(SGOT) (test code = 130 U/L 13-40 H 2172168476) eGFR (test code = mL/min/1.73m2 8545608230) KIM (test code = KIM) Association of [...] tests). Lab Interpretation Abnormal (test code = 84192-9) [id number] Test Item Value Reference Interpretation Comments Range D-DIMER (test code = See_Comment [Autom ated [id number]) message] The system which generated this result [...] diagnosis. Lab Interpretation Normal (test code = 37785-9) [facility]46 Test Item Value Reference Range Interpretation Comments LIPASE (test code = 9414850450) 66 U/L 0-220 Lab Interpretation (test code = Normal 91358-9) [facility] WITH [id number] 21:44:24 Test Item Value Reference Range Interpretation [...] RDW-SD (test code = 47.5 fL 39.0-49.9 58821-3) RDW-CV (test code = 13.9 % 12.0-15.5 788-0) PLT (test code = See_Comment L [Automated 777-3) message] The sy stem which generated this result transmitted reference range : 166 - 358 10*3/ ?L. The reference r luca was not used to interpret this result as normal/abnormal . MPV (test code = 10.1 fL 9.5-12.9 75061-8) NRBC/100 WBC (test See_Comment [Automat ed code = 0795884340) message] The system which generated this result transmitted reference range : 0.0 - 10.0 /100 WBCs. The refer ence range was not u sed to interpret th is result as normal/abnormal . NRBC x10^3 (test code <0.01 See_Comment [Auto mated = [id number]) message] The s ystem which generated this result transmitted reference range : 10*3/?L. The reference range was not used to interpret this result as normal/abnormal . GRAN MAT (NEUT) % 67.1 % (test code = 770-8) IMM GRAN % (test code 0.20 % = 8956295886) LYMPH % (test code = 24.9 % 736-9) MONO % (test code = 5.9 % 5905-5) EOS % (test code = 1.7 % 713-8) BASO % (test code = 0.2 % 706-2) GRAN MAT x10^3(ANC) 2.74 10*3/uL 1.88-7.09 (test code = 9390458572) IMM GRAN x10^3 (test <0.03 0.00-0.06 code = 1331068540) LYMPH x10^3 (test code 1.02 10*3/uL 1.32-3.29 L = 731-0) MONO x10^3 (test code 0.24 10*3/uL 0.33-0.92 L = 742-7) EOS x10^3 (test code = 0.07 10*3/uL 0.03-0.39 711-2) BASO x10^3 (test code <0.03 0.01-0.07 = 704-7) Lab Interpretation Abnormal (test code = 36761-3) [facility] [id number] 21:47:03 Test Item Value Reference Interpretation Comments Range TROPONIN I (test 0.006 ng/mL See_Comment [Automated code = 6973178473) message] The system which generated this result [...] biotin. Lab Interpretation Normal (test code = 85342-4) [facility] [id number] 21:44:02 Test Item Value Reference Range Interpretation Comments NT-proBNP (test code 75 pg/mL See_Comment [Autom ated = 8444808925) message] The system which generated this result transmitted reference range : <=125. The reference range was not used to interpret this result as normal/abnormal . KIM (test code = KIM) Biotin has been reported to cause a negative bias, interpret results relative to patient's use of biotin. Lab Interpretation Normal (test code = 93470-5) [facility] ([id number][facility]2021-06-03 21:37:20 Test Item Value Reference Range Interpretation Comments NA (test code = 137 mmol/L 135-145 9112280651) K (test code = 4.2 mmol/L 3.5-5.0 7509979828) CL (test code = 108 mmol/L 98-108 8769513771) CO2 TOTAL (test code = 26 mmol/L 23-31 1004008452) AGAP (test code = 2-16 1877072156) BUN (test code = 13 mg/dL 7-23 1762812026) GLUCOSE (test code = 83 mg/dL 70-110 6537258016) CREATININE (test code = 0.51 mg/dL 0.50-1.04 6312800702) TOTAL BILI (test code = 1.4 mg/dL 0.1-1.1 H 4197293974) CALCIUM (test code = 8.6 mg/dL 8.6-10.6 9625137809) T PROTEIN (test code = 7.8 g/dL 6.3-8.2 2519752098) ALBUMIN (test code = 4.3 g/dL 3.5-5.0 1279884477) ALK PHOS (test code = 731 U/L 34-122 H 8592916531) ALTv (test code = 162 U/L 5-35 H 1742-6) AST(SGOT) (test code = 251 U/L 13-40 H 7099268228) eGFR (test code = mL/min/1.73m2 9660364741) KIM (test code = KIM) Association of [...] tests). Lab Interpretation Abnormal (test code = 32608-1) [facility] 21:37:00 Test Item Value Reference Range Interpretation Comments LIPASE (test code = 1726431573) 62 U/L 0-220 Lab Interpretation (test code = Normal 17087-2) [facility] CenterACTIVATED PARTIAL THRMPLAS [id number] 21:33:43 Test Item Value Reference Range Interpretation Comments APTT Patient (test See_Comment [Automat ed code = 3173-2) message] The system which generated this result transmitted reference range : 23 - 38 Seconds . The reference range was not used to interpr et this result as normal/abnormal . KIM (test code = KIM) The [facility] patient population mean normal value for aPTT is 30 seconds. Lab Interpretation Normal (test code = 38915-2) [facility] CenterPROTHROMBIN TIME / [id number] 21:31:42 Test Item Value Reference Range Interpretation [...] tions. Lab Interpretation (test Normal code = 53694-8) [facility]CB WITH [id number] 21:18:43 Test Item Value Reference Range Interpretation [...] RDW-SD (test code = 46.3 fL 39.0-49.9 91346-7) RDW-CV (test code = 13.8 % 12.0-15.5 788-0) PLT (test code = See_Comment L [Automated 777-3) message] The sy stem which generated this result transmitted reference range : 166 - 358 10*3/ ?L. The reference r lcua was not used to interpret this result as normal/abnormal . MPV (test code = 9.5 fL 9.5-12.9 10823-7) IPF % (test code = 2.0 % 1.3-7.7 Platelet count 6671500723) measured by fluorescence method. NRBC/100 WBC (test See_Comment [Automat ed code = 2761580658) message] The system which generated this result transmitted reference range : 0.0 - 10.0 /100 WBCs. The refer ence range was not u sed to interpret th is result as normal/abnormal . NRBC x10^3 (test code <0.01 See_Comment [Auto mated = 6180721928) message] The s ystem which generated this result transmitted reference range : 10*3/?L. The reference range was not used to interpret this result as normal/abnormal . GRAN MAT (NEUT) % 68.8 % (test code = 770-8) IMM GRAN % (test code 0.20 % = 4554541101) LYMPH % (test code = 20.0 % 736-9) MONO % (test code = 10.3 % 5905-5) EOS % (test code = 0.5 % 713-8) BASO % (test code = 0.2 % 706-2) GRAN MAT x10^3(ANC) 2.79 10*3/uL 1.88-7.09 (test code = 9138289486) IMM GRAN x10^3 (test <0.03 0.00-0.06 code = 6540873974) LYMPH x10^3 (test code 0.81 10*3/uL 1.32-3.29 L = 731-0) MONO x10^3 (test code 0.42 10*3/uL 0.33-0.92 = 742-7) EOS x10^3 (test code = <0.03 0.03-0.39 L 711-2) BASO x10^3 (test code <0.03 0.01-0.07 = 704-7) Lab Interpretation Abnormal (test code = 68707-2) [facility] Acid Whole [id number] 20:33:44 Test Item Value Reference Range Interpretation Comments LACTIC ACID (test code = 1.37 mmol/L 0.50-2.20 8224025110) Lab Interpretation (test code = Normal 22742-0) [facility] CenterTROPONIN [id number] 06:39:31 Test Item Value Reference Interpretation Comments Range TROPONIN I (test 0.027 ng/mL See_Comment [Automated code = 6832178371) message] The system which generated this result [...] biotin. Lab Interpretation Normal (test code = 80887-7) [facility] [id number] 06:36:10 Test Item Value Reference Range Interpretation Comments NT-proBNP (test code 68 pg/mL See_Comment [Autom ated = 3409422049) message] The system which generated this result transmitted reference range : <=125. The reference range was not used to interpret this result as normal/abnormal . KIM (test code = KIM) Biotin has been reported to cause a negative bias, interpret results relative to patient's use of biotin. Lab Interpretation Normal (test code = 78902-7) [facility] [id number] 06:30:54 Test Item Value Reference Range Interpretation [...] RDW-SD (test code = 47.1 fL 39.0-49.9 02936-7) RDW-CV (test code = 13.9 % 12.0-15.5 788-0) PLT (test code = See_Comment L [Automated 777-3) message] The sy stem which generated this result transmitted reference range : 166 - 358 10*3/ ?L. The reference r luca was not used to interpret this result as normal/abnormal . MPV (test code = 10.2 fL 9.5-12.9 08413-8) NRBC/100 WBC (test See_Comment [Automat ed code = 5069577449) message] The system which generated this result transmitted reference range : 0.0 - 10.0 /100 WBCs. The refer ence range was not u sed to interpret th is result as normal/abnormal . NRBC x10^3 (test code <0.01 See_Comment [Auto mated = 4959138129) message] The s ystem which generated this result transmitted reference range : 10*3/?L. The reference range was not used to interpret this result as normal/abnormal . GRAN MAT (NEUT) % 62.6 % (test code = 770-8) IMM GRAN % (test code 0.00 % = 6325525250) LYMPH % (test code = 25.3 % 736-9) MONO % (test code = 9.5 % 5905-5) EOS % (test code = 2.2 % 713-8) BASO % (test code = 0.4 % 706-2) GRAN MAT x10^3(ANC) 1.71 10*3/uL 1.88-7.09 L (test code = 2042417613) IMM GRAN x10^3 (test <0.03 0.00-0.06 code = 6678278047) LYMPH x10^3 (test code 0.69 10*3/uL 1.32-3.29 L = 731-0) MONO x10^3 (test code 0.26 10*3/uL 0.33-0.92 L = 742-7) EOS x10^3 (test code = 0.06 10*3/uL 0.03-0.39 711-2) BASO x10^3 (test code <0.03 0.01-0.07 = 704-7) Lab Interpretation Abnormal (test code = 11977-7) [facility]. METABOLIC PANEL ([id number])2021-05-22 06:27:49 Test Item Value Reference Range Interpretation Comments NA (test code = 138 mmol/L 135-145 4149159745) K (test code = 4.9 mmol/L 3.5-5.0 4643479560) CL (test code = 105 mmol/L 98-108 0387544577) CO2 TOTAL (test code = 24 mmol/L 23-31 3451328923) AGAP (test code = 2-16 0247988809) BUN (test code = 6 mg/dL 7-23 L 6914320943) GLUCOSE (test code = 128 mg/dL 70-110 H 9629906623) CREATININE (test code = 0.54 mg/dL 0.50-1.04 1080773205) TOTAL BILI (test code = 1.3 mg/dL 0.1-1.1 H 3740979187) CALCIUM (test code = 8.4 mg/dL 8.6-10.6 L 9556593456) T PROTEIN (test code = 8.3 g/dL 6.3-8.2 H 2507592139) ALBUMIN (test code = 4.4 g/dL 3.5-5.0 0351657765) ALK PHOS (test code = 650 U/L 34-122 H 5711350889) ALTv (test code = 59 U/L 5-35 H 1742-6) AST(SGOT) (test code = 105 U/L 13-40 H 6769172983) eGFR (test code = mL/min/1.73m2 3187792958) KIM (test code = KIM) Association of [...] tests). Lab Interpretation Abnormal (test code = 27582-9) [facility] MOLECULAR [id number] 15:37:16 Test Item Value Reference Range Interpretation Comments POCT Molecular FluA (test code = Negative Negative 20432-6) POCT Molecular FluB (test code = Negative Negative 92620-0) Lab Interpretation (test code = Normal 86908-8) [facility] MOLECULAR [id number] 15:30:18 Test Item Value Reference Range Interpretation Comments POCT Molecular Strep (test code = Negative Negative 53274-4) Lab Interpretation (test code = Normal 36195-9) [facility] CenterTR[facility] [id number] 21:11:35 Test Item Value Reference Interpretation Comments Range TROPONIN I (test 0.002 ng/mL See_Comment [Automated code = 7182574368) message] The system which generated this result [...] biotin. Lab Interpretation Normal (test code = 38858-6) [facility] CenterCOMP[facility]OLIC PANEL ([id number])2021-04-15 20:54:19 Test Item Value Reference Range Interpretation Comments NA (test code = 137 mmol/L 135-145 4019118271) K (test code = 3.8 mmol/L 3.5-5.0 4035751396) CL (test code = 103 mmol/L 98-108 3805615324) CO2 TOTAL (test code = 26 mmol/L 23-31 3232451373) AGAP (test code = 2-16 4553772195) BUN (test code = 12 mg/dL 7-23 0505287289) GLUCOSE (test code = 111 mg/dL 70-110 H 7094437386) CREATININE (test code = 0.61 mg/dL 0.50-1.04 0705614963) TOTAL BILI (test code = 1.2 mg/dL 0.1-1.1 H 9430622309) CALCIUM (test code = 8.9 mg/dL 8.6-10.6 9017290200) T PROTEIN (test code = 8.1 g/dL 6.3-8.2 3199938107) ALBUMIN (test code = 4.3 g/dL 3.5-5.0 3341355202) ALK PHOS (test code = 693 U/L 34-122 H 7923341140) ALTv (test code = 93 U/L 5-35 H 1742-6) AST(SGOT) (test code = 108 U/L 13-40 H 3978016029) eGFR (test code = mL/min/1.73m2 4678228254) KIM (test code = KIM) Association of [...] tests). Lab Interpretation Abnormal (test code = 36984-0) [facility] 20:53:54 Test Item Value Reference Range Interpretation Comments LIPASE (test code = 0152591894) 59 U/L 0-220 Lab Interpretation (test code = Normal 71878-9) [facility]CBC WITH [id number] 20:33:32 Test Item Value Reference Range Interpretation [...] RDW-SD (test code = 45.8 fL 39.0-49.9 65398-4) RDW-CV (test code = 13.7 % 12.0-15.5 788-0) PLT (test code = See_Comment [Automated 777-3) message] The sy stem which generated this result transmitted reference range : 166 - 358 10*3/ ?L. The reference r luca was not used to interpret this result as normal/abnormal . MPV (test code = 9.5 fL 9.5-12.9 86777-1) NRBC/100 WBC (test See_Comment [Automat ed code = 2128689733) message] The system which generated this result transmitted reference range : 0.0 - 10.0 /100 WBCs. The refer ence range was not u sed to interpret th is result as normal/abnormal . NRBC x10^3 (test code <0.01 See_Comment [Auto mated = 3874224751) message] The s ystem which generated this result transmitted reference range : 10*3/?L. The reference range was not used to interpret this result as normal/abnormal . GRAN MAT (NEUT) % 70.5 % (test code = 770-8) IMM GRAN % (test code 0.70 % = 9952340309) LYMPH % (test code = 20.2 % 736-9) MONO % (test code = 6.7 % 5905-5) EOS % (test code = 1.4 % 713-8) BASO % (test code = 0.5 % 706-2) GRAN MAT x10^3(ANC) 3.07 10*3/uL 1.88-7.09 (test code = 2783044289) IMM GRAN x10^3 (test 0.03 10*3/uL 0.00-0.06 code = 3692307938) LYMPH x10^3 (test code 0.88 10*3/uL 1.32-3.29 L = 731-0) MONO x10^3 (test code 0.29 10*3/uL 0.33-0.92 L = 742-7) EOS x10^3 (test code = 0.06 10*3/uL 0.03-0.39 711-2) BASO x10^3 (test code <0.03 0.01-0.07 = 704-7) Lab Interpretation Abnormal (test code = 63364-9) [facility] [id number] 01:49:11 Test Item Value Reference Interpretation Comments Range TROPONIN I (test 0.002 ng/mL See_Comment [Automated code = 0508436517) message] The system which generated this result [...] biotin. Lab Interpretation Normal (test code = 11649-3) [facility] [id number] 01:46:10 Test Item Value Reference Range Interpretation Comments NT-proBNP (test code 56 pg/mL See_Comment [Autom ated = 1477715331) message] The system which generated this result transmitted reference range : <=125. The reference range was not used to interpret this result as normal/abnormal . KIM (test code = KIM) Biotin has been reported to cause a negative bias, interpret results relative to patient's use of biotin. Lab Interpretation Normal (test code = 11845-4) [facility]. METABOLIC PANEL ([id number])2021-03-26 01:37:29 Test Item Value Reference Range Interpretation Comments NA (test code = 134 mmol/L 135-145 L 8927560176) K (test code = 4.6 mmol/L 3.5-5.0 3507952552) CL (test code = 103 mmol/L 98-108 3041284853) CO2 TOTAL (test code = 21 mmol/L 23-31 L 6358193496) AGAP (test code = 2-16 0546637493) BUN (test code = 21 mg/dL 7-23 2558360369) GLUCOSE (test code = 98 mg/dL 70-110 2289559006) CREATININE (test code = 0.89 mg/dL 0.50-1.04 4702421248) TOTAL BILI (test code = 1.0 mg/dL 0.1-1.4 3956279064) CALCIUM (test code = 9.6 mg/dL 8.6-10.6 9633037838) T PROTEIN (test code = 8.0 g/dL 6.3-8.2 1077295156) ALBUMIN (test code = 4.5 g/dL 3.5-5.0 7039077795) ALK PHOS (test code = 818 U/L 34-122 H 4522539583) ALTv (test code = 201 U/L 5-35 H 1742-6) AST(SGOT) (test code = 174 U/L 13-40 H 8496872116) eGFR (test code = mL/min/1.73m2 1664783497) KIM (test code = KIM) Association of [...] tests). Lab Interpretation Abnormal (test code = 92672-8) [facility] 01:37:09 Test Item Value Reference Range Interpretation Comments LIPASE (test code = 8977776845) 176 U/L 0-220 Lab Interpretation (test code = Normal 02925-9) [facility] [id number] 01:34:08 Test Item Value Reference Range Interpretation Comments WBC (test code = See_Comment [Automated 6274-2) message] The sy stem which generated this result transmitted reference range : 4.30 - 11.10 10*3/?L. The reference range was not used to interpret this result as normal/abnormal . RBC (test code = See_Comment L [Automated 555-8) message] The sy stem which generated this [...] RDW-SD (test code = 43.3 fL 39.0-49.9 25095-1) RDW-CV (test code = 13.0 % 12.0-15.5 788-0) PLT (test code = See_Comment [Automated 777-3) message] The sy stem which generated this result transmitted reference range : 166 - 358 10*3/ ?L. The reference r luca was not used to interpret this result as normal/abnormal . MPV (test code = 10.0 fL 9.5-12.9 84127-1) NRBC/100 WBC (test See_Comment [Automat ed code = 4573063478) message] The system which generated this result transmitted reference range : 0.0 - 10.0 /100 WBCs. The refer ence range was not u sed to interpret th is result as normal/abnormal . NRBC x10^3 (test code <0.01 See_Comment [Auto mated = 2027184904) message] The s ystem which generated this result transmitted reference range : 10*3/?L. The reference range was not used to interpret this result as normal/abnormal . GRAN MAT (NEUT) % 71.1 % (test code = 770-8) IMM GRAN % (test code 0.50 % = 7567424464) LYMPH % (test code = 18.8 % 736-9) MONO % (test code = 7.0 % 5905-5) EOS % (test code = 2.3 % 713-8) BASO % (test code = 0.3 % 706-2) GRAN MAT x10^3(ANC) 4.38 10*3/uL 1.88-7.09 (test code = 9973884708) IMM GRAN x10^3 (test 0.03 10*3/uL 0.00-0.06 code = 7540138556) LYMPH x10^3 (test code 1.16 10*3/uL 1.32-3.29 L = 731-0) MONO x10^3 (test code 0.43 10*3/uL 0.33-0.92 = 742-7) EOS x10^3 (test code = 0.14 10*3/uL 0.03-0.39 711-2) BASO x10^3 (test code <0.03 0.01-0.07 = 704-7) Lab Interpretation Abnormal (test code = 55672-5) [facility]. METABOLIC PANEL ([id number])2021-03-21 00:26:35 Test Item Value Reference Range Interpretation Comments NA (test code = 135 mmol/L 135-145 8586206773) K (test code = 4.6 mmol/L 3.5-5.0 9761635208) CL (test code = 104 mmol/L 98-108 7082055134) CO2 TOTAL (test code = 24 mmol/L 23-31 7188198258) AGAP (test code = 2-16 5337857605) BUN (test code = 17 mg/dL 7-23 1734716056) GLUCOSE (test code = 88 mg/dL 70-110 9874077099) CREATININE (test code = 0.70 mg/dL 0.50-1.04 3492524779) TOTAL BILI (test code = 1.0 mg/dL 0.1-1.6 6931166916) CALCIUM (test code = 8.8 mg/dL 8.6-10.6 9298131839) T PROTEIN (test code = 7.2 g/dL 6.3-8.2 9161422801) ALBUMIN (test code = 3.9 g/dL 3.5-5.0 1785755494) ALK PHOS (test code = 844 U/L 34-122 H 7263980074) ALTv (test code = 192 U/L 5-35 H 1742-6) AST(SGOT) (test code = 189 U/L 13-40 H 8574689467) eGFR (test code = mL/min/1.73m2 6362052766) KIM (test code = KIM) Association of [...] tests). Lab Interpretation Abnormal (test code = 16640-2) [facility] CenterJUNLisa [id number] 23:26:58 Test Item Value Reference Interpretation Comments Range TROPONIN I (test 0.026 ng/mL See_Comment [Automated code = 2999762348) message] The system which generated this result [...] biotin. Lab Interpretation Normal (test code = 04870-0) [facility]20[facility] 23:15:37 Test Item Value Reference Range Interpretation Comments LIPASE (test code = 0434750908) 214 U/L 0-220 Lab Interpretation (test code = Normal 24565-8) [facility] [id number] 22:59:33 Test Item Value Reference Range Interpretation [...] RDW-SD (test code = 43.4 fL 39.0-49.9 27807-2) RDW-CV (test code = 13.0 % 12.0-15.5 788-0) PLT (test code = See_Comment [Automated 777-3) message] The sy stem which generated this result transmitted reference range : 166 - 358 10*3/ ?L. The reference r luca was not used to interpret this result as normal/abnormal . MPV (test code = 10.2 fL 9.5-12.9 71230-3) NRBC/100 WBC (test See_Comment [Automat ed code = 2395685672) message] The system which generated this result transmitted reference range : 0.0 - 10.0 /100 WBCs. The refer ence range was not u sed to interpret th is result as normal/abnormal . NRBC x10^3 (test code <0.01 See_Comment [Auto mated = 6369495128) message] The s ystem which generated this result transmitted reference range : 10*3/?L. The reference range was not used to interpret this result as normal/abnormal . GRAN MAT (NEUT) % 65.8 % (test code = 770-8) IMM GRAN % (test code 0.20 % = 5121291168) LYMPH % (test code = 22.8 % 736-9) MONO % (test code = 7.7 % 5905-5) EOS % (test code = 2.9 % 713-8) BASO % (test code = 0.6 % 706-2) GRAN MAT x10^3(ANC) 3.43 10*3/uL 1.88-7.09 (test code = 9762140937) IMM GRAN x10^3 (test <0.03 0.00-0.06 code = 3352727478) LYMPH x10^3 (test code 1.19 10*3/uL 1.32-3.29 L = 731-0) MONO x10^3 (test code 0.40 10*3/uL 0.33-0.92 = 742-7) EOS x10^3 (test code = 0.15 10*3/uL 0.03-0.39 711-2) BASO x10^3 (test code 0.03 10*3/uL 0.01-0.07 = 704-7) Lab Interpretation Abnormal (test code = 21142-0) [facility] ([id number])2021-02-12 20:12:57 Test Item Value Reference Range Interpretation Comments NA (test code = 137 mmol/L 135-145 2442763879) K (test code = 4.7 mmol/L 3.5-5.0 9103873693) CL (test code = 106 mmol/L 98-108 7724155847) CO2 TOTAL (test code = 23 mmol/L -31 7756716874) AGAP (test code = 2-16 9266068133) BUN (test code = 16 mg/dL 7-23 9018137888) GLUCOSE (test code = 116 mg/dL 70-110 H 0749477504) CREATININE (test code = 0.65 mg/dL 0.50-1.04 4440164126) TOTAL BILI (test code = 1.6 mg/dL 0.1-1.1 H 3726144925) CALCIUM (test code = 9.6 mg/dL 8.6-10.6 5838726716) T PROTEIN (test code = 8.3 g/dL 6.3-8.2 H 9225695563) ALBUMIN (test code = 4.5 g/dL 3.5-5.0 0973432061) ALK PHOS (test code = 650 U/L 34-122 H 9528604653) ALTv (test code = 146 U/L 5-35 H 1742-6) AST(SGOT) (test code = 174 U/L 13-40 H 5261402287) eGFR (test code = mL/min/1.73m2 5672019500) KIM (test code = KIM) Association of [...] tests). Lab Interpretation Abnormal (test code = 50293-8) [facility] 20:12:12 Test Item Value Reference Range Interpretation Comments LIPASE (test code = 2862703149) 86 U/L 0-220 Lab Interpretation (test code = Normal 69525-2) [facility] [id number] 20:02:15 Test Item Value Reference Range Interpretation [...] RDW-SD (test code = 46.4 fL 39.0-49.9 89624-5) RDW-CV (test code = 13.8 % 12.0-15.5 788-0) PLT (test code = See_Comment [Automated 777-3) message] The sy stem which generated this result transmitted reference range : 166 - 358 10*3/ ?L. The reference r luca was not used to interpret this result as normal/abnormal . MPV (test code = 9.8 fL 9.5-12.9 90898-0) NRBC/100 WBC (test See_Comment [Automat ed code = 4208628062) message] The system which generated this result transmitted reference range : 0.0 - 10.0 /100 WBCs. The refer ence range was not u sed to interpret th is result as normal/abnormal . NRBC x10^3 (test code <0.01 See_Comment [Auto mated = 9755020488) message] The s ystem which generated this result transmitted reference range : 10*3/?L. The reference range was not used to interpret this result as normal/abnormal . GRAN MAT (NEUT) % 69.4 % (test code = 770-8) IMM GRAN % (test code 0.40 % = 7511470400) LYMPH % (test code = 20.4 % 736-9) MONO % (test code = 7.2 % 5905-5) EOS % (test code = 2.0 % 713-8) BASO % (test code = 0.6 % 706-2) GRAN MAT x10^3(ANC) 3.77 10*3/uL 1.88-7.09 (test code = 9718541004) IMM GRAN x10^3 (test <0.03 0.00-0.06 code = 4429106643) LYMPH x10^3 (test code 1.11 10*3/uL 1.32-3.29 L = 731-0) MONO x10^3 (test code 0.39 10*3/uL 0.33-0.92 = 742-7) EOS x10^3 (test code = 0.11 10*3/uL 0.03-0.39 711-2) BASO x10^3 (test code 0.03 10*3/uL 0.01-0.07 = 704-7) Lab Interpretation Abnormal (test code = 94244-2) [facility]. METABOLIC PANEL ([id number])2021-01-18 04:36:17 Test Item Value Reference Range Interpretation Comments NA (test code = 137 mmol/L 135-145 8642613372) K (test code = 4.2 mmol/L 3.5-5.0 8744370882) CL (test code = 103 mmol/L 98-108 0948919992) CO2 TOTAL (test code = 27 mmol/L 23-31 7923767300) AGAP (test code = 2-16 3081888669) BUN (test code = 13 mg/dL 7-23 0658219947) GLUCOSE (test code = 100 mg/dL 70-110 2297486219) CREATININE (test code = 0.73 mg/dL 0.50-1.04 7460431697) TOTAL BILI (test code = 1.4 mg/dL 0.1-1.1 H 8675642716) CALCIUM (test code = 9.1 mg/dL 8.6-10.6 5990122679) T PROTEIN (test code = 7.2 g/dL 6.3-8.2 2350137516) ALBUMIN (test code = 4.0 g/dL 3.5-5.0 0293358111) ALK PHOS (test code = 585 U/L 34-122 H 8230983553) ALTv (test code = 78 U/L 5-35 H 1742-6) AST(SGOT) (test code = 73 U/L 13-40 H 3812961863) eGFR (test code = mL/min/1.73m2 4266187644) KIM (test code = KIM) Association of [...] tests). Lab Interpretation Abnormal (test code = 19779-1) [facility] Test Item Value Reference Range Interpretation Comments LIPASE (test code = 4244784837) 114 U/L 0-220 Lab Interpretation (test code = Normal 39295-9) [facility] HELC5844-99-13 03:49:11 Test Item Value Reference Range Interpretation [...] (test code = 50.6 fL 39.0-49.9 H 10064-3) RDW-CV (test code = 14.8 % 12.0-15.5 788-0) PLT (test code = See_Comment [Automated 777-3) message] The sy stem which generated this result transmitted reference range : 166 - 358 10*3/ ?L. The reference r luca was not used to interpret this result as normal/abnormal . MPV (test code = 10.7 fL 9.5-12.9 84609-7) NRBC/100 WBC (test See_Comment [Automat ed code = 2987544938) message] The system which generated this result transmitted reference range : 0.0 - 10.0 /100 WBCs. The refer ence range was not u sed to interpret th is result as normal/abnormal . NRBC x10^3 (test code <0.01 See_Comment [Auto mated = 5114677266) message] The s ystem which generated this result transmitted reference range : 10*3/?L. The reference range was not used to interpret this result as normal/abnormal . GRAN MAT (NEUT) % 66.1 % (test code = 770-8) IMM GRAN % (test code 0.20 % = 0433302126) LYMPH % (test code = 23.5 % 736-9) MONO % (test code = 8.1 % 5905-5) EOS % (test code = 1.7 % 713-8) BASO % (test code = 0.4 % 706-2) GRAN MAT x10^3(ANC) 3.49 10*3/uL 1.88-7.09 (test code = 1314531532) IMM GRAN x10^3 (test <0.03 0.00-0.06 code = 0696508378) LYMPH x10^3 (test code 1.24 10*3/uL 1.32-3.29 L = 731-0) MONO x10^3 (test code 0.43 10*3/uL 0.33-0.92 = 742-7) EOS x10^3 (test code = 0.09 10*3/uL 0.03-0.39 711-2) BASO x10^3 (test code <0.03 0.01-0.07 = 704-7) Lab Interpretation Abnormal (test code = 43918-2) [facility]99517[facility] (ALB,T.PRO,BILI T,BU/BC,ALT,AST,ALK PHOS)2020-12-30 18:48:24 Test Item Value Reference Range Interpretation Comments TOTAL BILI (test code = 2463295874) 2.4 mg/dL 0.1-1.1 H BILI UNCON (test code = 6253978582) 0.5 mg/dL 0.1-1.1 BILI CONJ (test code = 3278307461) 0.0 mg/dL 0.0-0.3 T PROTEIN (test code = 0521469329) 9.8 g/dL 6.3-8.2 H ALBUMIN (test code = 9075582641) 4.9 g/dL 3.5-5.0 ALK PHOS (test code = 0759910192) 1181 U/L 34-122 H ALTv (test code = 1742-6) 271 U/L 5-35 H AST(SGOT) (test code = 3799958127) 192 U/L 13-40 H Lab Interpretation (test code = Abnormal 78458-6) [facility] (11520) (ALB,T.PRO,BILI T,BU/BC,ALT,AST,ALK PHOS)2020-12-30 18:48:24 Test Item Value Reference Range Interpretation Comments TOTAL BILI (test code = 5018302098) 2.4 mg/dL 0.1-1.1 H BILI UNCON (test code = 8667678459) 0.5 mg/dL 0.1-1.1 BILI CONJ (test code = 6193410171) 0.0 mg/dL 0.0-0.3 T PROTEIN (test code = 5462042311) 9.8 g/dL 6.3-8.2 H ALBUMIN (test code = 8564887768) 4.9 g/dL 3.5-5.0 ALK PHOS (test code = 3693293149) 1181 U/L 34-122 H ALTv (test code = 1742-6) 271 U/L 5-35 H AST(SGOT) (test code = 8350569734) 192 U/L 13-40 H Lab Interpretation (test code = Abnormal 72085-4) [facility]OL[facility] (NA, K, CL, CO2, GLUCOSE, BUN, CREATININE, CA)2020-12-30 18:48:02 Test Item Value Reference Range Interpretation Comments NA (test code = 138 mmol/L 135-145 4684262037) K (test code = 4.7 mmol/L 3.5-5.0 0448962837) CL (test code = 106 mmol/L 98-108 3502326815) CO2 TOTAL (test code = 20 mmol/L 23-31 L 1733444608) AGAP (test code = 2-16 3748898467) BUN (test code = 19 mg/dL 7-23 0309592085) GLUCOSE (test code = 134 mg/dL 70-110 H 2000581269) CREATININE (test code = 0.62 mg/dL 0.50-1.04 1921626360) CALCIUM (test code = 10.1 mg/dL 8.6-10.6 3186898038) eGFR (test code = mL/min/1.73m2 7638081731) KIM (test code = KIM) Association of [...] tests). Lab Interpretation Abnormal (test code = 39259-3) [facility] 18:48:02 Test Item Value Reference Range Interpretation Comments LIPASE (test code = 0367266864) 292 U/L 0-220 H Lab Interpretation (test code = Abnormal 96610-4) [facility] METABOLIC PANEL (NA, K, CL, CO2, GLUCOSE, BUN, CREATININE, CA)2020-12-30 18:48:02 Test Item Value Reference Range Interpretation Comments NA (test code = 138 mmol/L 135-145 6612480323) K (test code = 4.7 mmol/L 3.5-5.0 1997401666) CL (test code = 106 mmol/L 98-108 4209429843) CO2 TOTAL (test code = 20 mmol/L 23-31 L 6382482742) AGAP (test code = 2-16 5870775603) BUN (test code = 19 mg/dL 7-23 9200439601) GLUCOSE (test code = 134 mg/dL 70-110 H 0606225387) CREATININE (test code = 0.62 mg/dL 0.50-1.04 0452583486) CALCIUM (test code = 10.1 mg/dL 8.6-10.6 0522044587) eGFR (test code = mL/min/1.73m2 7930664322) KIM (test code = KIM) Association of [...] tests). Lab Interpretation Abnormal (test code = 92531-8) [facility] 18:48:02 Test Item Value Reference Range Interpretation Comments LIPASE (test code = 5580607183) 292 U/L 0-220 H Lab Interpretation (test code = Abnormal 21054-4) [facility] CenterCBC WITH [id number] 18:39:23 Test Item Value Reference Range Interpretation Comments WBC (test code = See_Comment [Automated 1190-2) message] The sy stem which generated this result transmitted reference range : 4.30 - 11.10 10*3/?L. The reference range was not used to interpret this result as normal/abnormal . RBC (test code = See_Comment [Automated 389-8) message] The sy stem which [...] RDW-SD (test code = 48.4 fL 39.0-49.9 11012-7) RDW-CV (test code = 14.6 % 12.0-15.5 788-0) PLT (test code = See_Comment [Automated 447-3) message] The sy stem which generated this result transmitted reference range : 166 - 358 10*3/ ?L. The reference r luca was not used to interpret this result as normal/abnormal . MPV (test code = 10.1 fL 9.5-12.9 76946-1) NRBC/100 WBC (test See_Comment [Automat ed code = 9700327759) message] The system which generated this result transmitted reference range : 0.0 - 10.0 /100 WBCs. The refer ence range was not u sed to interpret th is result as normal/abnormal . NRBC x10^3 (test code <0.01 See_Comment [Auto mated = 4154949191) message] The s ystem which generated this result transmitted reference range : 10*3/?L. The reference range was not used to interpret this result as normal/abnormal . GRAN MAT (NEUT) % 75.2 % (test code = 770-8) IMM GRAN % (test code 0.60 % = 3932295855) LYMPH % (test code = 17.0 % 736-9) MONO % (test code = 5.8 % 5905-5) EOS % (test code = 0.9 % 713-8) BASO % (test code = 0.5 % 706-2) GRAN MAT x10^3(ANC) 8.11 10*3/uL 1.88-7.09 H (test code = 4229909483) IMM GRAN x10^3 (test 0.06 10*3/uL 0.00-0.06 code = 9057343683) LYMPH x10^3 (test code 1.83 10*3/uL 1.32-3.29 = 731-0) MONO x10^3 (test code 0.62 10*3/uL 0.33-0.92 = 742-7) EOS x10^3 (test code = 0.10 10*3/uL 0.03-0.39 711-2) BASO x10^3 (test code 0.05 10*3/uL 0.01-0.07 = 704-7) Lab Interpretation Abnormal (test code = 94710-9) [facility] WITH [id number] 18:39:23 Test Item Value Reference Range Interpretation [...] RDW-SD (test code = 48.4 fL 39.0-49.9 58471-9) RDW-CV (test code = 14.6 % 12.0-15.5 788-0) PLT (test code = See_Comment [Automated 777-3) message] The sy stem which generated this result transmitted reference range : 166 - 358 10*3/ ?L. The reference r luca was not used to interpret this result as normal/abnormal . MPV (test code = 10.1 fL 9.5-12.9 62577-6) NRBC/100 WBC (test See_Comment [Automat ed code = 3081692520) message] The system which generated this result transmitted reference range : 0.0 - 10.0 /100 WBCs. The refer ence range was not u sed to interpret th is result as normal/abnormal . NRBC x10^3 (test code <0.01 See_Comment [Auto mated = 9220045428) message] The s ystem which generated this result transmitted reference range : 10*3/?L. The reference range was not used to interpret this result as normal/abnormal . GRAN MAT (NEUT) % 75.2 % (test code = 770-8) IMM GRAN % (test code 0.60 % = 6066106781) LYMPH % (test code = 17.0 % 736-9) MONO % (test code = 5.8 % 5905-5) EOS % (test code = 0.9 % 713-8) BASO % (test code = 0.5 % 706-2) GRAN MAT x10^3(ANC) 8.11 10*3/uL 1.88-7.09 H (test code = 7449084460) IMM GRAN x10^3 (test 0.06 10*3/uL 0.00-0.06 code = 7651624673) LYMPH x10^3 (test code 1.83 10*3/uL 1.32-3.29 = 731-0) MONO x10^3 (test code 0.62 10*3/uL 0.33-0.92 = 742-7) EOS x10^3 (test code = 0.10 10*3/uL 0.03-0.39 711-2) BASO x10^3 (test code 0.05 10*3/uL 0.01-0.07 = 704-7) Lab Interpretation Abnormal (test code = 92086-0) [facility] PELVIS COMPLETE WITH [id number] 23:13:25Focal echogenicity in the left ovary measuring [...] Otherwise unremarkable pelvic ultrasound.RL: [id number] OF REPORT [facility] CenterLactic Acid Whole [id number] 22:23:55 Test Item Value Reference Range Interpretation Comments LACTIC ACID (test code = 1.49 mmol/L 0.50-2.20 9923541361) Lab Interpretation (test code = Normal 16759-5) [facility] PEL[facility] W [id number] 22:20:59 1. ?No acute intra-abdominal abnormality. 2. ?Gastric wall thickening is nonspecific but can be seen with gastritis. 3. ?Postsurgical changes of cholecystectomy and appendectomy. Pneumobiliaversus nonradiopaque biliary stents are unchanged dating back to 2016. 4. ?Hepatic steatosis and splenomegaly. The 0.9 cm cystic hypodensity atthe uncinate process is slightly smaller from 03/26/2020. This wasevaluated [facility] on 09/08/2020, with resultssuggestive of pseudocyst [...] 03/26/2020. This wasevaluated by MR abdomen at [facility] on 09/08/2020, with resultssuggestive of pseudocyst versus side branch IPMN.PreliminaryReport Dictated by Resident: Chester Rivera, Dwight Akers MD., have reviewed this study and agree with the abovereport.[facility] CenterURINALYSIS2021-08-23 20:42:19 Test Item Value Reference Range Interpretation Comments APPEARANCE (test code = Clear Clear 2267257061) COLOR (test code = Lisa Yellow A 9189169098) PH (test code = 4.8-8.0 3353633231) SP GRAVITY (test code = 1.003-1.030 3970756257) GLU U QUAL (test code = Normal Normal 9689463830) BLOOD (test code = Negative Negative 0333413654) KETONES (test code = Negative Negative 8944883427) PROTEIN (test code = 30 mg/dL Negative A 2887-8) UROBILIN (test code = 4.0 mg/dL Normal A 0972385631) BILIRUBIN (test code = 2 mg/dL Negative A 0369675363) NITRITE (test code = Negative Negative 8874633737) LEUK NICHOLE (test code = Negative Negative 0788251325) RBC/HPF (test code = See_Comment [Autom ated message] 0756235884) The system [employer] generated this result transmit gulshan reference range : 0 - 3 HPF. The refe rence range was not u sed to interpret th is result as normal/abnormal . WBC/HPF (test code = See_Comment [Autom ated message] 9062982643) The system [employer] generated this result transmit gulshan reference range : 0 - 5 HPF. The refe rence range was not u sed to interpret th is result as normal/abnormal . BACTERIA (test code = Few Negative A 1669460350) MUCOUS (test code = Slight Negative LPF A 7827154248) SQ EPITH (test code = HPF 0576988727) HYAL CAST (test code = See_Comment [Aut omated message] 4413847229) The system [employer] generated this result transmit gulshan reference range : <=2 LPF. The refere nce range was not u sed to interpret th is result as normal/abnormal . Lab Interpretation (test Abnormal code = 52667-4) [facility]. METABOLIC PANEL (96360)2020-12-05 20:38:13 Test Item Value Reference Range Interpretation Comments NA (test code = 139 mmol/L 135-145 8125686467) K (test code = 3.6 mmol/L 3.5-5.0 2570795105) CL (test code = 106 mmol/L 98-108 7647205884) CO2 TOTAL (test code = 21 mmol/L 23-31 L 1920679292) AGAP (test code = 2-16 5837735097) BUN (test code = 12 mg/dL 7-23 9996035499) GLUCOSE (test code = 91 mg/dL 70-110 0713220207) CREATININE (test code = 0.53 mg/dL 0.50-1.04 1013998982) TOTAL BILI (test code = 3.6 mg/dL 0.1-1.1 H 3012937788) CALCIUM (test code = 9.8 mg/dL 8.6-10.6 2341317836) T PROTEIN (test code = 9.1 g/dL 6.3-8.2 H 5760818013) ALBUMIN (test code = 4.6 g/dL 3.5-5.0 8856427106) ALK PHOS (test code = 1229 U/L 34-122 H 9169630279) ALTv (test code = 311 U/L 5-35 H 1742-6) AST(SGOT) (test code = 280 U/L 13-40 H 7304481709) eGFR (test code = mL/min/1.73m2 9851582664) KIM (test code = KIM) Association of [...] tests). Lab Interpretation Abnormal (test code = 57943-7) [facility] 20:37:32 Test Item Value Reference Range Interpretation Comments LIPASE (test code = 0537049733) 168 U/L 0-220 Lab Interpretation (test code = Normal 26556-7) [facility] WITH [id number] 20:25:55 Test Item Value Reference Range Interpretation Comments WBC (test code = See_Comment [Automated 1497-2) message] The sy stem which generated this result transmitted reference range : 4.30 - 11.10 10*3/?L. The reference range was not used to interpret this result as normal/abnormal . RBC (test code = See_Comment L [Automated 486-2) message] The sy stem which generated this [...] RDW-SD (test code = 49.3 fL 39.0-49.9 14744-1) RDW-CV (test code = 15.0 % 12.0-15.5 788-0) PLT (test code = See_Comment [Automated 777-3) message] The sy stem which generated this result transmitted reference range : 166 - 358 10*3/ ?L. The reference r luca was not used to interpret this result as normal/abnormal . MPV (test code = 10.2 fL 9.5-12.9 36504-0) NRBC/100 WBC (test See_Comment [Automat ed code = 1662336608) message] The system which generated this result transmitted reference range : 0.0 - 10.0 /100 WBCs. The refer ence range was not u sed to interpret th is result as normal/abnormal . NRBC x10^3 (test code <0.01 See_Comment [Auto mated = 2302224790) message] The s ystem which generated this result transmitted reference range : 10*3/?L. The reference range was not used to interpret this result as normal/abnormal . GRAN MAT (NEUT) % 68.6 % (test code = 770-8) IMM GRAN % (test code 0.40 % = 3907806469) LYMPH % (test code = 21.2 % 736-9) MONO % (test code = 7.8 % 5905-5) EOS % (test code = 1.6 % 713-8) BASO % (test code = 0.4 % 706-2) GRAN MAT x10^3(ANC) 3.50 10*3/uL 1.88-7.09 (test code = 5546124327) IMM GRAN x10^3 (test <0.03 0.00-0.06 code = 0200722057) LYMPH x10^3 (test code 1.08 10*3/uL 1.32-3.29 L = 731-0) MONO x10^3 (test code 0.40 10*3/uL 0.33-0.92 = 742-7) EOS x10^3 (test code = 0.08 10*3/uL 0.03-0.39 711-2) BASO x10^3 (test code <0.03 0.01-0.07 = 704-7) Lab Interpretation Abnormal (test code = 15324-7) [facility] CenterLIPID PANEL (00252)(TOTAL CHOLESTEROL, TRIGLYCERIDES, HDL)2020-10-12 16:46:34 Test Item Value Reference Range Interpretation Comments CHOL (test code = 307 mg/dL 120-200 H 3346289902) HDL (test code = 93 mg/dL >50 6637370081) HDLC RATIO (test code = See_Comment [Au tomated message] 4225018194) The system [employer] generated this result transmit gulshan reference range : <=4.5. The refe rence range was not u sed to interpret th is result as normal/abnormal . TRIG (test code = 131 mg/dL 30-170 4002981864) LDL CHOL (test code = 188 mg/dL See_Comment H [Auto mated message] 97005-4) The system [employer] generated this result transmit gulshan reference range : <=160. The refe rence range was not u sed to interpret th is result as normal/abnormal . VLDL (test code = 26 mg/dL 5-60 6787051305) Lab Interpretation (test Abnormal code = 58778-5) [facility] CenterMagnesium [id number] 09:02:26 Test Item Value Reference Range Interpretation Comments MAGNESIUM (test code = 6985050010) 1.9 mg/dL 1.7-2.4 Lab Interpretation (test code = Normal 46167-7) [facility]HEP[facility]CTION PANEL (21531) (ALB,T.PRO,BILI T,BU/BC,ALT,AST,ALK PHOS)2020-10-12 09:02:26 Test Item Value Reference Range Interpretation Comments TOTAL BILI (test code = 2512147187) 1.0 mg/dL 0.1-1.1 BILI UNCON (test code = 4506478255) 0.5 mg/dL 0.1-1.1 BILI CONJ (test code = 6349286921) 0.0 mg/dL 0.0-0.3 T PROTEIN (test code = 3157868230) 7.8 g/dL 6.3-8.2 ALBUMIN (test code = 5925317322) 4.3 g/dL 3.5-5.0 ALK PHOS (test code = 6761289654) 608 U/L 34-122 H ALTv (test code = 1742-6) 156 U/L 5-35 H AST(SGOT) (test code = 0175993224) 136 U/L 13-40 H Lab Interpretation (test code = Abnormal 06910-1) [facility] CenterProthrombin Time / [id number] 08:48:50 Test Item Value Reference Range Interpretation [...] tions. Lab Interpretation (test Normal code = 42148-5) [facility] CenteraPTT2021-06-30 08:48:50 Test Item Value Reference Range Interpretation Comments APTT Patient (test code See_Comment H [Au tomated message] = 3173-2) The system ic h generated this result transmitted ref erence range: 26 - 36 Seconds. The reference range was not used to int erpret this result as normal/abnormal . Lab Interpretation (test Abnormal code = 63045-5) [facility] CenterCB with [id number] 08:31:22 Test Item Value Reference Range Interpretation Comments WBC (test code = See_Comment [Automated 2890-2) message] The sy stem which generated this [...] RDW-SD (test code = 41.3 fL 39.0-49.9 93714-5) RDW-CV (test code = 12.6 % 12.0-15.5 788-0) PLT (test code = See_Comment [Automated 777-3) message] The sy stem which generated this result transmitted reference range : 166 - 358 10*3/ ?L. The reference r luca was not used to interpret this result as normal/abnormal . MPV (test code = 9.1 fL 9.5-12.9 L 98997-8) NRBC/100 WBC (test See_Comment [Automat ed code = 8025050606) message] The system which generated this result transmitted reference range : 0.0 - 10.0 /100 WBCs. The refer ence range was not u sed to interpret th is result as normal/abnormal . NRBC x10^3 (test code <0.01 See_Comment [Auto mated = 0250423783) message] The s ystem which generated this result transmitted reference range : 10*3/?L. The reference range was not used to interpret this result as normal/abnormal . GRAN MAT (NEUT) % 62.6 % (test code = 770-8) IMM GRAN % (test code 0.40 % = 3635497415) LYMPH % (test code = 26.8 % 736-9) MONO % (test code = 7.7 % 5905-5) EOS % (test code = 2.1 % 713-8) BASO % (test code = 0.4 % 706-2) GRAN MAT x10^3(ANC) 3.32 10*3/uL 1.88-7.09 (test code = 4591247662) IMM GRAN x10^3 (test <0.03 0.00-0.06 code = 5673050329) LYMPH x10^3 (test code 1.42 10*3/uL 1.32-3.29 = 731-0) MONO x10^3 (test code 0.41 10*3/uL 0.33-0.92 = 742-7) EOS x10^3 (test code = 0.11 10*3/uL 0.03-0.39 711-2) BASO x10^3 (test code <0.03 0.01-0.07 = 704-7) Lab Interpretation Abnormal (test code = 29390-6) [facility] METABOLIC PANEL (NA, K, CL, CO2, GLUCOSE, BUN, CREATININE, CA)2020-10-12 04:16:15 Test Item Value Reference Range Interpretation Comments NA (test code = 138 mmol/L 135-145 7362100895) K (test code = 4.1 mmol/L 3.5-5.0 8841855849) CL (test code = 104 mmol/L 98-108 3291053156) CO2 TOTAL (test code 23 mmol/L 23-31 = 1006743752) AGAP (test code = 2-16 3978913667) BUN (test code = 16 mg/dL 7-23 0913704799) GLUCOSE (test code = 83 mg/dL 70-110 1691347573) CREATININE (test code 0.63 mg/dL 0.50-1.04 = 3930033472) CALCIUM (test code = 9.4 mg/dL 8.6-10.6 3925563189) eGFR (test code = mL/min/1.73m2 5913152303) KIM (test code = KIM) Association of [...] or urine or abnormalities in imaging tests). [facility]HEP[facility]CTION [facility] (62349) (ALB,T.PRO,BILI T,BU/BC,ALT,AST,ALK PHOS)2020-10-12 04:16:15 Test Item Value Reference Range Interpretation Comments TOTAL BILI (test code = 0237303752) 1.1 mg/dL 0.1-1.1 BILI UNCON (test code = 6829457717) 0.5 mg/dL 0.1-1.1 BILI CONJ (test code = 4482429856) 0.0 mg/dL 0.0-0.3 T PROTEIN (test code = 1762138977) 8.5 g/dL 6.3-8.2 H ALBUMIN (test code = 4374086233) 4.6 g/dL 3.5-5.0 ALK PHOS (test code = 7262076175) 679 U/L 34-122 H ALTv (test code = 1742-6) 168 U/L 5-35 H AST(SGOT) (test code = 7166294279) 143 U/L 13-40 H Lab Interpretation (test code = Abnormal 48477-3) [facility] RAPID TESTING[facility]2020-10-11 16:36:41 Test Item Value Reference Range Interpretation Comments SARS-CoV-2 Rapid ID NOW Not Detected Not Detected (test code = 41191-2) KIM (test code = KIM) ID NOW COVID-19 Assay is an isothermal nucleic acid amplification test intended for the qualitative detection of nucleic acid from SARS-CoV-2 viral RNA in nasopharyngeal (STRUCTURAL FITTER) specimens. It is used under Emergency Use [...] indicated. Lab Interpretation Normal (test code = 59562-9) [facility] GALL [id number] 15:28:53HISTORY: Rule out biliary duct stenosis. COMPARISON: [...] ductstenosis cannot be adequately evaluated by this study.[facility], Radiant Results Inft User - 10/11/2020 10:30 [...] ductstenosis cannot be adequately evaluated by this study.[facility] Troponin [id number] 14:35:05 Test Item Value Reference Interpretation Comments Range TROPONIN I (test 0.004 ng/mL See_Comment [Automated code = 2956239498) message] The system which generated this result [...] biotin. Lab Interpretation Normal (test code = 49748-6) [facility] CenterHep[facility] Function Panel (ALB, T.PRO, BILI T, BU/BC, ALT, AST, ALK PHOS)2020-10-11 14:24:25 Test Item Value Reference Range Interpretation Comments TOTAL BILI (test code = 8102174351) 0.9 mg/dL 0.1-1.1 BILI UNCON (test code = 6712750084) 0.3 mg/dL 0.1-1.1 BILI CONJ (test code = 6207256394) 0.0 mg/dL 0.0-0.3 T PROTEIN (test code = 5949145697) 9.0 g/dL 6.3-8.2 H ALBUMIN (test code = 9348386028) 4.8 g/dL 3.5-5.0 ALK PHOS (test code = 7162577417) 752 U/L 34-122 H ALTv (test code = 1742-6) 164 U/L 5-35 H AST(SGOT) (test code = 8808726119) 166 U/L 13-40 H Lab Interpretation (test code = Abnormal 67895-7) [facility] Metabolic Panel (NA, K, CL, CO2, GLUCOSE, BUN, CREATININE, CA)2020-10-11 14:24:05 Test Item Value Reference Range Interpretation Comments NA (test code = 139 mmol/L 135-145 9142469655) K (test code = 4.3 mmol/L 3.5-5.0 8646473334) CL (test code = 106 mmol/L 98-108 9395920843) CO2 TOTAL (test code = 22 mmol/L 23-31 L 4399722217) AGAP (test code = 2-16 4352638680) BUN (test code = 15 mg/dL 7-23 4584397952) GLUCOSE (test code = 106 mg/dL 70-110 3804277524) CREATININE (test code = 0.63 mg/dL 0.50-1.04 0343831452) CALCIUM (test code = 10.0 mg/dL 8.6-10.6 9390159776) eGFR (test code = mL/min/1.73m2 7894524927) KIM (test code = KIM) Association of [...] tests). Lab Interpretation Abnormal (test code = 84416-8) [facility] CenterLipase Uoqrz4680-75-85 14:24:05 Test Item Value Reference Range Interpretation Comments LIPASE (test code = 6076524629) 169 U/L 0-220 Lab Interpretation (test code = Normal 85468-0) [facility] CenterUrinalysis2021-06-29 14:23:55 Test Item Value Reference Range Interpretation Comments APPEARANCE (test code = Hazy Clear A 0891669685) COLOR (test code = Yellow Yellow 7742027555) PH (test code = 4.8-8.0 6317017609) SP GRAVITY (test code = 1.003-1.030 2068617230) GLU U QUAL (test code = Normal Normal 5182217242) BLOOD (test code = Negative Negative 6673814806) KETONES (test code = Negative Negative 6894403942) PROTEIN (test code = Negative Negative 2887-8) UROBILIN (test code = Normal Normal 3778885207) BILIRUBIN (test code = Negative Negative 0112939097) NITRITE (test code = Negative Negative 1289326999) LEUK NICHOLE (test code = Negative Negative [id number]) RBC/HPF (test code = See_Comment [Autom ated message] [id number]) The system [employer] generated this result transmitted ref erence range: 0 - 3 HP F. The reference range was not used to int erpret this result as normal/abnormal . WBC/HPF (test code = See_Comment [Autom ated message] [id number]) The system [employer] generated this result transmitted ref erence range: 0 - 5 HP F. The reference range was not used to int erpret this result as normal/abnormal . BACTERIA (test code = Few Negative A [id number]) AMORPHOUS (test code = Rare Rare HPF 7179013361) SQ EPITH (test code = HPF [id number]) HYAL CAST (test code = See_Comment H [Aut omated message] [id number]) The system [employer] generated this result transmitted ref erence range: <=2 LPF. The reference range was not used to int erpret this result as normal/abnormal . Lab Interpretation (test Abnormal code = 12952-3) [facility] with [id number] 14:14:01 Test Item Value Reference Range Interpretation Comments WBC (test code = See_Comment [Automated message] 6890-2) The system [employer] generated this result transmitted ref erence range: 4.30 - 1 1.10 10*3/?L. The re ference range was not u sed to interpret this result as normal/abnor mal. RBC (test code = See_Comment [Automated message] 789-8) The system [employer] generated this result transmitted ref erence range: [...] RDW-SD (test code 40.1 fL 39.0-49.9 = 86226-2) RDW-CV (test code 12.3 % 12.0-15.5 = 788-0) PLT (test code = See_Comment [Automated message] 197-3) The system [employer] generated this result transmitted ref erence range: 166 - 35 8 10*3/?L. The re ference range was not u sed to interpret this result as normal/abnor mal. MPV (test code = 9.7 fL 9.5-12.9 05851-4) NRBC/100 WBC (test See_Comment [Automat ed message] code = 1617052023) The syste m which generated this result transmitted ref erence range: 0.0 - 10 .0 /100 WBCs. The refer ence range was not u sed to interpret this result as normal/abnor mal. NRBC x10^3 (test <0.01 See_Comment [Automated message] code = 6420176700) The syste m which generated this result transmitted ref erence range: 10*3/?L. The reference range was not used to interpr et this result as normal/abnormal . GRAN MAT (NEUT) % 63.7 % (test code = 770-8) IMM GRAN % (test 0.40 % code = 1146469830) LYMPH % (test code 26.2 % = 736-9) MONO % (test code 7.6 % = 5905-5) EOS % (test code = 1.7 % 713-8) BASO % (test code 0.4 % = 706-2) GRAN MAT 3.45 10*3/uL 1.88-7.09 x10^3(ANC) (test code = 9864249678) IMM GRAN x10^3 <0.03 0.00-0.06 (test code = 7011816407) LYMPH x10^3 (test 1.42 10*3/uL 1.32-3.29 code = 731-0) MONO x10^3 (test 0.41 10*3/uL 0.33-0.92 code = 742-7) EOS x10^3 (test 0.09 10*3/uL 0.03-0.39 code = 711-2) BASO x10^3 (test <0.03 0.01-0.07 code = 704-7) [facility]. METABOLIC PANEL (79584)2020-10-04 23:43:59 Test Item Value Reference Range Interpretation Comments NA (test code = 138 mmol/L 135-145 0365540221) K (test code = 4.1 mmol/L 3.5-5.0 2693275666) CL (test code = 105 mmol/L 98-108 2130826167) CO2 TOTAL (test code = 26 mmol/L 23-31 5531474612) AGAP (test code = 2-16 3769648100) BUN (test code = 12 mg/dL 7-23 3105346563) GLUCOSE (test code = 124 mg/dL 70-110 H 0747029794) CREATININE (test code = 0.51 mg/dL 0.50-1.04 2659413526) TOTAL BILI (test code = 1.0 mg/dL 0.1-1.8 4192444302) CALCIUM (test code = 9.3 mg/dL 8.6-10.6 8893465934) T PROTEIN (test code = 7.9 g/dL 6.3-8.2 8147704710) ALBUMIN (test code = 4.1 g/dL 3.5-5.0 3015479709) ALK PHOS (test code = 619 U/L 34-122 H 0824438915) ALTv (test code = 99 U/L 5-35 H 1742-6) AST(SGOT) (test code = 97 U/L 13-40 H 4561872133) eGFR (test code = mL/min/1.73m2 7925002477) KIM (test code = KIM) Association of [...] tests). Lab Interpretation Abnormal (test code = 97829-9) [facility] 23:43[facility]38 Test Item Value Reference Range Interpretation Comments LIPASE (test code = 0544370840) 182 U/L 0-220 Lab Interpretation (test code = Normal 24566-4) [facility] (ID NOW RAPID TESTING)2020-10-04 23:39:59 Test Item Value Reference Range Interpretation Comments SARS-CoV-2 Rapid ID NOW Not Detected Not Detected (test code = 39095-6) KIM (test code = KIM) ID NOW COVID-19 Assay is an isothermal nucleic acid amplification test intended for the qualitative detection of nucleic acid from SARS-CoV-2 viral RNA in nasopharyngeal (STRUCTURAL FITTER) specimens. It is used under Emergency Use [...] indicated. Lab Interpretation Normal (test code = 58962-9) [facility]2021-[facility] 23:36:26 Test Item Value Reference Range Interpretation Comments APPEARANCE (test code = Clear Clear 8970282042) COLOR (test code = Lisa Yellow A 1843494908) PH (test code = 4.8-8.0 3449253284) SP GRAVITY (test code = 1.003-1.030 0077057285) GLU U QUAL (test code = Normal Normal 8983678584) BLOOD (test code = Negative Negative 7604654944) KETONES (test code = Negative Negative 2684655611) PROTEIN (test code = Negative Negative 2887-8) UROBILIN (test code = 4.0 mg/dL Normal A 4367265971) BILIRUBIN (test code = Negative Negative 5452741790) NITRITE (test code = Negative Negative 1432733239) LEUK NICHOLE (test code = Negative Negative 1037112552) RBC/HPF (test code = See_Comment [Autom ated message] 5871078470) The system [employer] generated this result transmit gulshan reference range : 0 - 3 HPF. The refe rence range was not u sed to interpret th is result as normal/abnormal . WBC/HPF (test code = <1 See_Comment [Autom ated message] 0217136300) The system [employer] generated this result transmit gulshan reference range : 0 - 5 HPF. The refe rence range was not u sed to interpret th is result as normal/abnormal . BACTERIA (test code = Few Negative A 3463029892) MUCOUS (test code = Slight Negative LPF A 7687609184) SQ EPITH (test code = HPF 9740150065) Lab Interpretation (test Abnormal code = 92902-8) [facility] WITH [id number] 23:29:18 Test Item Value Reference Range Interpretation Comments WBC (test code = See_Comment L [Automated 3090-2) message] The sy stem which [...] RDW-SD (test code = 40.5 fL 39.0-49.9 53281-3) RDW-CV (test code = 12.2 % 12.0-15.5 788-0) PLT (test code = See_Comment [Automated 777-3) message] The sy stem which generated this result transmitted reference range : 166 - 358 10*3/ ?L. The reference r luca was not used to interpret this result as normal/abnormal . MPV (test code = 9.8 fL 9.5-12.9 07939-0) NRBC/100 WBC (test See_Comment [Automat ed code = 5336063594) message] The system which generated this result transmitted reference range : 0.0 - 10.0 /100 WBCs. The refer ence range was not u sed to interpret th is result as normal/abnormal . NRBC x10^3 (test code <0.01 See_Comment [Auto mated = 9580762981) message] The s ystem which generated this result transmitted reference range : 10*3/?L. The reference range was not used to interpret this result as normal/abnormal . GRAN MAT (NEUT) % 72.0 % (test code = 770-8) IMM GRAN % (test code 0.20 % = 3490025179) LYMPH % (test code = 19.8 % 736-9) MONO % (test code = 6.4 % 5905-5) EOS % (test code = 1.4 % 713-8) BASO % (test code = 0.2 % 706-2) GRAN MAT x10^3(ANC) 3.06 10*3/uL 1.88-7.09 (test code = 7745946622) IMM GRAN x10^3 (test <0.03 0.00-0.06 code = 0679373994) LYMPH x10^3 (test code 0.84 10*3/uL 1.32-3.29 L = 731-0) MONO x10^3 (test code 0.27 10*3/uL 0.33-0.92 L = 742-7) EOS x10^3 (test code = 0.06 10*3/uL 0.03-0.39 711-2) BASO x10^3 (test code <0.03 0.01-0.07 = 704-7) Lab Interpretation Abnormal (test code = 84066-4) [facility] CenterMR, ABDOMEN, [id number] 13:41:00Liver Protocol with ElastographyUnlisted Reason for Exam - Click Yes and Enter Reason Below->YesUnlisted Reason for Exam->History of liver fibrosis [facility] : 1960 Sex: FFINAL REPORT [...] Fibrosis: 3.5 - 4 kPa.* These results shouldbe interpreted with clinical and laboratory findings for [...] two years is suggested. References:*Stiffness threshold correlation tofibrosis based on meta- analysis by Chris, MRI Clin N Am 2014Hepatic Fat Fraction Thresholds based on Abdom Radiol 2020;45(3):661-671. Signed: Parul Saeed MDReport Verified Date/Time: 09/08/2020 13:41:30 Reading Location: [facility] C013X [facility] Consult Reading Room PROTHROMBIN TIME/[id number] 04:34:00 Test Item Value Reference Range Interpretation Comments PROTIME (BEAKER) 11.7 seconds 11.9-14.2 L (test code = 759) INR (BEAKER) (test 0.88 See_Comment [Automat ed message] code = 370) The system [employer] generated this result transmitted ref erence range: <=5.90. The reference range was not used to int erpret this result as normal/abnormal . RECOMMENDED COUMADIN/WARFARIN INR THERAPY RANGESSTANDARD DOSE: 2.0 - 3.0 Includes: PROPHYLAXIS for venous thrombosis, systemic embolization; TREATMENT for venous thrombosis and/or pulmonary embolus.HIGH RISK: Target INR is 2.5-3.5 for patients with mechanical heart valves.BASIC METABOLIC [id number] 04:51:00 Test Item Value Reference Range Interpretation [...] S NOT APPLICABLE FOR DIALYSIS PATIEN TS. Risk Control Representative ID - [facility] [id number] 04:51:00 Test Item Value Reference Range Interpretation [...] code = 132 U/L 6-55 H 347) Risk Control Representative ID - ALAINA [id number] 04:51:00 Test Item Value Reference Range Interpretation Comments LIPASE (BEAKER) (test code = 749) 115 U/L 8-78 H Risk Control Representative ID - ALAINA WPROTHROMBIN TIME/[id number] 04:25:00 Test Item Value Reference Range Interpretation Comments PROTIME (BEAKER) 12.3 seconds 11.9-14.2 (test code = 759) INR (BEAKER) (test 0.94 See_Comment [Automat ed message] code = 370) The system [employer] generated this result transmitted ref erence range: <=5.90. The reference range was not used to int erpret this result as normal/abnormal . RECOMMENDED COUMADIN/WARFARIN INR THERAPY RANGESSTANDARD DOSE: 2.0 - 3.0 Includes: PROPHYLAXIS for venous thrombosis, systemic embolization; TREATMENT for venous thrombosis and/or pulmonary embolus.HIGH RISK: Target INR is 2.5-3.5 for patients with mechanical heart valves.FL, [id number] 08:00:00INTRA OP IMAGIN Reason for exam:->ercp [facility] : 1960 Sex: FFluoroscopic unit utilized for a procedure performed in the OR. No interpretation was requested. Refer to the operative report for findings. Refer to PACS for patient radiation dose information.SARS-COV2/RT-PCR ([facility])2020-09-06 06:35:00 Test Item Value Reference Range Interpretation Comments SARS-COV2/RT-PCR (test Negative Not Detected, Negative, code = 8918232) See external report for linked test SARS-COV-2 PERFORMING LAB [facility] DEVAN (test code = 2333966) Negative result for this test determines that [...] the Simms SARS-CoV-2 assay.Fact Sheet for Healthcare Providers:https://www.Attender.[employer]/bertha/RT_SAR G-MyB-0_SQL_Lbpj_Btfip_64-931769.pdfFact Sheet for Healthcare Patients:https://www.Attender.simms/s al/RJ_TIXH-DvE-0_Exkgudm_Bify_Ksgzi_PX_22-224813C2.pdfPerforming Laboratory:[facility] [place] [address] PROTHROMBIN TIME/[id number] 04:41:00 Test Item Value Reference Range Interpretation Comments PROTIME (BEAKER) 12.4 seconds 11.9-14.2 (test code = 759) INR (BEAKER) (test 0.95 See_Comment [Automat ed message] code = 370) The system [employer] generated this result transmitted ref erence range: <=5.90. The reference range was not used to int erpret this result as normal/abnormal . RECOMMENDED COUMADIN/WARFARIN INR THERAPY RANGESSTANDARD DOSE: 2.0 - 3.0 Includes: PROPHYLAXIS for venous thrombosis, systemic embolization; TREATMENT for venous thrombosis and/or pulmonary embolus.HIGH RISK: Target INR is 2.5-3.5 for patients with mechanical heart valves.[id number] 14:40:00 Test Item Value Reference Range Interpretation Comments MAGNESIUM (BEAKER) 1.9 mg/dL 1.6-2.6 Specimen slightly (test code = 627) hemolyzed Risk Control Representative HONG - MIGDALIA FBASIC METABOLIC [id number] 14:40:00 Test Item Value Reference Range Interpretation [...] S NOT APPLICABLE FOR DIALYSIS PATIEN TS. Risk Control Representative ID Ryan NEGRON FHEPATIC FUNCTION [id number] 14:40:00 Test Item Value Reference Range Interpretation [...] Specimen slightly (test code = 347) hemolyzed Risk Control Representative ID Ryan NEGRON [id number] 14:40:00 Test Item Value Reference Range Interpretation Comments LIPASE (BEAKER) (test code = 749) 446 U/L 8-78 H Risk Control Representative ID Ryan NEGRON FCBC W/PLT COUNT & AUTO [id number] 14:14:00 Test Item Value Reference Range Interpretation [...] PERCENT (BEAKER) (test code = 2801) [place], [id number] 08:35:00Reason for exam:->abnormal imaging [facility] : 1960 Sex: FFluoroscopic unit utilized for a procedure performed in the OR. No interpretation was requested. Refer to the operative report for findings. Refer to PACS for patient radiation dose information.[id number] 06:42:00 Test Item Value Reference Range Interpretation Comments MAGNESIUM (BEAKER) (test code = 1.8 mg/dL 1.6-2.6 627) Risk Control Representative ID - [id number] 06:42:00 Test Item Value Reference Range Interpretation Comments PHOSPHORUS (BEAKER) (test code = 3.4 mg/dL 2.3-4.7 604) Risk Control Representative ID - EDASIHEPATIC FUNCTION [id number] 06:42:00 Test Item Value Reference Range Interpretation [...] code = 89 U/L 6-55 H 347) Risk Control Representative ID - EDASIBASIC METABOLIC [id number] 06:42:00 Test Item Value Reference Range Interpretation [...] S NOT APPLICABLE FOR DIALYSIS PATIEN TS. Risk Control Representative ID - EDASICBC W/PLT COUNT & AUTO [id number] 05:27:00 Test Item Value Reference Range Interpretation [...] (BEAKER) (test code = 2801) SARS-COV2/RT-PCR ([facility])2020-08-26 12:43:00 Test Item Value Reference Range Interpretation Comments SARS-COV2/RT-PCR (test Negative Not Detected, Negative, code = 2303273) See external report for linked test SARS-COV-2 PERFORMING LAB [facility] (test code = 0286229) Negative result for this test determines that [...] of the Act.Fact Sheet for Healthcare Prov iders:https://www.Breadtrip/sites/default/files/product/documents/Fact_Sheet_HC _Sxmskbzkm_Uhti_VARQ-KpZ-6.pdfFact Sheet for Healthcare Patients:https://www.[employer]/sites/default/files/product/docume nts/Axbf_Npsdp_Hsmudcwz_Zpkc_QEIR-ErH-6.pdfPerforming Laboratory:[facility] [facility] [address] [place], [place] [address]SQHXG METABOLIC PANEL 2020-08-26 06:19:00 Test Item Value [...] S NOT APPLICABLE FOR DIALYSIS PATIEN TS. Risk Control Representative ID - PIAYA [id number] 06:19:00 Test Item Value Reference Range Interpretation Comments MAGNESIUM (BEAKER) (test code = 1.8 mg/dL 1.6-2.6 627) Risk Control Representative ID - PIAYA LHEPATIC FUNCTION [id number] 06:19:00 Test Item Value Reference Range Interpretation [...] code = 82 U/L 6-55 H 347) Risk Control Representative ID - PIAYA LCBC W/PLT COUNT & AUTO [id number] 05:37:00 Test Item Value Reference Range Interpretation [...] images do not require a Radiology diagnostic report.[facility] TIME OR (NON-REPORTABLE)2020-07-18 13:25:02These images do not require a Radiology diagnostic report.[facility] GLUCOSE (AUTOMATED) 2020-07-18 12:07:46 Test Item Value Reference Range Interpretation Comments POCT GLU (test code = 7746947057) 98 mg/dL 70-110 Lab Interpretation (test code = Normal 48859-9) [facility] GLUCOSE (AUTOMATED)2020-07-18 12:07:46 Test Item Value Reference Range Interpretation Comments POCT GLU (test code = 6397163799) 98 mg/dL 70-110 Lab Interpretation (test code = Normal 88079-5) [facility] ABDOMEN PELVIS W [id number] 01:39:22 1. ?No acute obstruction or inflammation [...] mass. No destructive bony process is seen. Scmb, Radiant Results Inft User - 07/07/2020 8:40 PM CDTHISTORY: Abdominal abscess/infection suspected COMPARISON:noneTECHNIQUE:CT scanof the abdomen and pelvis performed. Contiguous axial CT imageswere obtained after administration ofintravenous contrast. CT scan doneaccording to ALA. Technical quality: Technical quality: adequate.FINDINGS:Lung bases are [...] There is abundant stool throughoutthe colon.RL: [facility] [facility] CenterTROPONIN [id number] 00:55:45 Test Item Value Reference Range Interpretation Comments TROPONIN I (test 0.002 ng/mL See_Comment [Automated code = 0593328041) message] The system which generated this result [...] ? Lab Interpretation Normal (test code = 71335-5) [facility] (ID NOW RAPID TESTING)2020-07-08 00:47:04 Test Item Value Reference Range Interpretation Comments SARS-CoV-2 Rapid ID NOW Not Detected Not Detected (test code = 55674-8) KIM (test code = KIM) ID NOW COVID-19 Assay is an isothermal nucleic acid amplification test intended for the qualitative detection of nucleic acid from SARS-CoV-2 viral RNA in nasopharyngeal (STRUCTURAL FITTER) specimens. It is used under Emergency Use [...] indicated. Lab Interpretation Normal (test code = 25095-4) [facility] CenterMAGN[facility]IUM2021-03-26 00:45:06 Test Item Value Reference Range Interpretation Comments MAGNESIUM (test code = 7946261005) 2.0 mg/dL 1.7-2.4 Lab Interpretation (test code = Normal 65622-7) [facility] CenterCOM. METABOLIC PANEL (68755)2020-07-08 00:44:41 Test Item Value Reference Range Interpretation Comments NA (test code = 139 mmol/L 135-145 8102715309) K (test code = 4.4 mmol/L 3.5-5.0 1324969111) CL (test code = 108 mmol/L 98-108 6807430951) CO2 TOTAL (test code = 23 mmol/L 23-31 5882318405) AGAP (test code = 2-16 8660351828) BUN (test code = 22 mg/dL 7-23 5887982014) GLUCOSE (test code = 107 mg/dL 70-110 1340415066) CREATININE (test code = 0.62 mg/dL 0.50-1.04 4411467110) TOTAL BILI (test code = 0.9 mg/dL 0.1-1.3 5480022390) CALCIUM (test code = 10.0 mg/dL 8.6-10.6 0002073635) T PROTEIN (test code = 8.3 g/dL 6.3-8.2 H 4178076563) ALBUMIN (test code = 4.8 g/dL 3.5-5.0 2461903176) ALK PHOS (test code = 1085 U/L 34-122 H 6279784141) ALTv (test code = 383 U/L 5-35 H 1742-6) AST(SGOT) (test code = 217 U/L 13-40 H 1347519282) eGFR Calculation mL/min/1.73m2 (Non-) (test code = 8575671072) eGFR Calculation mL/min/1.73m2 () (test code = 6616584950) KIM (test code = KIM) Association of [...] tests). Lab Interpretation Abnormal (test code = 63542-7) [facility] CenterLIPASE2021-03-26 00:44:41 Test Item Value Reference Range Interpretation Comments LIPASE (test code = 0536879384) 131 U/L 0-220 Lab Interpretation (test code = Normal 97789-5) [facility] CenterURINALYSIS2021-03-26 00:38:06 Test Item Value Reference Range Interpretation Comments APPEARANCE (test code = Clear Clear 7921105094) COLOR (test code = Yellow Yellow 8369426591) PH (test code = 4.8-8.0 9549488117) SP GRAVITY (test code = 1.003-1.030 8143046205) GLU U QUAL (test code = Normal Normal 2973250423) BLOOD (test code = Negative Negative 6926227746) KETONES (test code = Negative Negative 6486912834) PROTEIN (test code = Negative Negative 2887-8) UROBILIN (test code = 4.0 mg/dL Normal A 9538068782) BILIRUBIN (test code = Negative Negative 8662087254) NITRITE (test code = Negative Negative 1645685826) LEUK NICHOLE (test code = Negative Negative 8757739142) RBC/HPF (test code = <1 See_Comment [Autom ated message] 3944567823) The system [employer] generated this result transmit gulshan reference range : 0 - 3 HPF. The refe rence range was not u sed to interpret th is result as normal/abnormal . WBC/HPF (test code = See_Comment [Autom ated message] 8790127111) The system [employer] generated this result transmit gulshan reference range : 0 - 5 HPF. The refe rence range was not u sed to interpret th is result as normal/abnormal . BACTERIA (test code = Few Negative A 9288306145) MUCOUS (test code = Slight Negative LPF A 5996527535) SQ EPITH (test code = HPF 2351240867) Lab Interpretation (test Abnormal code = 02416-0) [facility] WITH [id number] 00:32:00 Test Item Value Reference Range Interpretation [...] RDW-SD (test code = 48.1 fL 39.0-49.9 23803-1) RDW-CV (test code = 14.5 % 12.0-15.5 788-0) PLT (test code = See_Comment [Automated 777-3) message] The sy stem which generated this result transmitted reference range : 166 - 358 10*3/ ?L. The reference r luca was not used to interpret this result as normal/abnormal . MPV (test code = 9.5 fL 9.5-12.9 81196-2) NRBC/100 WBC (test See_Comment [Automat ed code = 1056805301) message] The system which generated this result transmitted reference range : 0.0 - 10.0 /100 WBCs. The refer ence range was not u sed to interpret th is result as normal/abnormal . NRBC x10^3 (test code <0.01 See_Comment [Auto mated = 8133316266) message] The s ystem which generated this result transmitted reference range : 10*3/?L. The reference range was not used to interpret this result as normal/abnormal . GRAN MAT (NEUT) % 78.2 % (test code = 770-8) IMM GRAN % (test code 0.60 % = 5916534518) LYMPH % (test code = 11.9 % 736-9) MONO % (test code = 8.3 % 5905-5) EOS % (test code = 0.5 % 713-8) BASO % (test code = 0.5 % 706-2) GRAN MAT x10^3(ANC) 7.55 10*3/uL 1.88-7.09 H (test code = 4519518918) IMM GRAN x10^3 (test 0.06 10*3/uL 0.00-0.06 code = 3606904725) LYMPH x10^3 (test code 1.15 10*3/uL 1.32-3.29 L = 731-0) MONO x10^3 (test code 0.80 10*3/uL 0.33-0.92 = 742-7) EOS x10^3 (test code = 0.05 10*3/uL 0.03-0.39 711-2) BASO x10^3 (test code 0.05 10*3/uL 0.01-0.07 = 704-7) Lab Interpretation Abnormal (test code = 01982-8) [facility] TIME OR (NON-REPORTABLE)2020-07-04 13:40:03 These images do not require a Radiology diagnostic report.[facility] TIME OR (NON-REPORTABLE)2020-06-20 14:58:12These images do not require a Radiology diagnostic report.[facility] Met[facility] Panel (NA, K, CL, CO2, GLUCOSE, BUN, CREATININE, CA)2020-05-06 23:29:00 Test Item Value Reference Range Interpretation Comments NA (test code = 138 mmol/L 135-145 6466002997) K (test code = 4.4 mmol/L 3.5-5 6361140258) CL (test code = 108 mmol/L 98-108 0291279325) CO2 TOTAL (test code = 20 mmol/L 23-31 L 5442704842) AGAP (test code = 2-16 5569422854) BUN (test code = 18 mg/dL 7-23 2667423637) GLUCOSE (test code = 90 mg/dL 70-110 4799825656) CREATININE (test code = 0.68 mg/dL 0.5-1.04 7512340464) CALCIUM (test code = 9.1 mg/dL 8.6-10.6 3511560189) eGFR Calculation mL/min/1.73m2 (Non-) (test code = 4578924652) eGFR Calculation mL/min/1.73m2 () (test code = 5381940523) KIM (test code = KIM) Association of [...] tests). Lab Interpretation Abnormal (test code = 88958-2) [facility] CenterHep[facility] (ALB, T.PRO, BILI T, BU/BC, ALT, AST, ALK PHOS)2020-05-06 23:28:00 Test Item Value Reference Range Interpretation Comments TOTAL BILI (test code = 0385656699) 1.1 mg/dL 0.1-1.1 BILI UNCON (test code = 0801190491) 0.4 mg/dL 0.1-1.1 BILI CONJ (test code = 9635597228) 0.0 mg/dL 0-0.3 T PROTEIN (test code = 5952220005) 7.9 g/dL 6.3-8.2 ALBUMIN (test code = 8955544312) 4.4 g/dL 3.5-5 ALK PHOS (test code = 8993585714) 984 U/L 34-122 H ALTv (test code = 1742-6) 218 U/L 5-35 H AST(SGOT) (test code = 3939499015) 133 U/L 13-40 H Lab Interpretation (test code = Abnormal 58883-2) [facility] CenterTroponin [id number] 22:19:00 Test Item Value Reference Range Interpretation Comments TROPONIN I (test 0.021 ng/mL See_Comment [Automated code = 8876264315) message] The system which generated this result [...] ? Lab Interpretation Normal (test code = 84250-5) [facility] (ID NOW RAPID TESTING)2020-05-06 22:13:00 Test Item Value Reference Range Interpretation Comments SARS-CoV-2 Rapid ID NOW Not Detected Not Detected (test code = 81219-7) KIM (test code = KIM) ID NOW COVID-19 Assay is an isothermal nucleic acid amplification test intended for the qualitative detection of nucleic acid from SARS-CoV-2 viral RNA in nasopharyngeal (STRUCTURAL FITTER) specimens. It is used under Emergency Use [...] indicated. Lab Interpretation Normal (test code = 33458-3) [facility] CenterUrinalysis2021-01-22 22:09:00 Test Item Value Reference Range Interpretation Comments APPEARANCE (test code = Clear Clear 8129956312) COLOR (test code = Yellow Yellow 3391110434) PH (test code = 4.8-8.0 4486316918) SP GRAVITY (test code = 1.003-1.030 8060408190) GLU U QUAL (test code = Normal Normal 2283050110) BLOOD (test code = Negative Negative INTERFERE NCE FROM 4624420111) ASCORBIC ACID M AY CAUSE FALSE NEG ATIVE RESULT KETONES (test code = Negative Negative 1098345738) PROTEIN (test code = Negative Negative 2887-8) UROBILIN (test code = 2.0 mg/dL Normal A 4372482838) BILIRUBIN (test code = Negative Negative 8219731948) NITRITE (test code = Negative Negative 3443584766) LEUK NICHOLE (test code = Negative Negative 0160933224) RBC/HPF (test code = See_Comment [Autom ated message] 5205121987) The system [employer] generated this result transmitted ref erence range: 0 - 3 HP F. The reference range was not used to int erpret this result as normal/abnormal . WBC/HPF (test code = See_Comment [Autom ated message] 2182585109) The system [employer] generated this result transmitted ref erence range: 0 - 5 HP F. The reference range was not used to int erpret this result as normal/abnormal . BACTERIA (test code = Few Negative A 8444595692) SQ EPITH (test code = HPF 0195564026) HYAL CAST (test code = See_Comment [Aut omated message] 6825845825) The system [employer] generated this result transmitted ref erence range: <=2 LPF. The reference range was not used to int erpret this result as normal/abnormal . Lab Interpretation Abnormal (test code = 13451-9) [facility] [id number] 22:08:00 Test Item Value Reference Range Interpretation Comments LIPASE (test code = 8701866587) 114 U/L 0-220 Lab Interpretation (test code = Normal 60927-1) [facility] with [id number] 22:02:00 Test Item Value Reference Range Interpretation Comments WBC (test code = See_Comment [Automated 3842-2) message] The sy stem which generated this result transmitted reference range : 4.30 - 11.10 10*3/?L. The reference range was not used to interpret this result as normal/abnormal . RBC (test code = See_Comment [Automated 209-8) message] The sy stem which generated this [...] RDW-SD (test code = 41.0 fL 39-49.9 83178-1) RDW-CV (test code = 12.4 % 12-15.5 788-0) PLT (test code = See_Comment [Automated 777-3) message] The sy stem which generated this result transmitted reference range : 166 - 358 10*3/ ?L. The reference r luca was not used to interpret this result as normal/abnormal . MPV (test code = 10.5 fL 9.5-12.9 90856-7) NRBC/100 WBC (test See_Comment [Automat ed code = 2221901664) message] The system which generated this result transmitted reference range : 0.0 - 10.0 /100 WBCs. The refer ence range was not u sed to interpret th is result as normal/abnormal . NRBC x10^3 (test code <0.01 See_Comment [Auto mated = 0802578575) message] The s ystem which generated this result transmitted reference range : 10*3/?L. The reference range was not used to interpret this result as normal/abnormal . GRAN MAT (NEUT) % 71.8 % (test code = 770-8) IMM GRAN % (test code 0.10 % = 3905746984) LYMPH % (test code = 19.0 % 736-9) MONO % (test code = 6.2 % 5905-5) EOS % (test code = 2.2 % 713-8) BASO % (test code = 0.7 % 706-2) GRAN MAT x10^3(ANC) 4.83 10*3/uL 1.88-7.09 (test code = 2182753593) IMM GRAN x10^3 (test <0.03 0-0.06 code = 9804312309) LYMPH x10^3 (test code 1.28 10*3/uL 1.32-3.29 L = 731-0) MONO x10^3 (test code 0.42 10*3/uL 0.33-0.92 = 742-7) EOS x10^3 (test code = 0.15 10*3/uL 0.03-0.39 711-2) BASO x10^3 (test code 0.05 10*3/uL 0.01-0.07 = 704-7) Lab Interpretation Abnormal (test code = 46721-6) [facility] 1 [id number] 21:48:28Findings and Impression: ?Subcentimeter calcified granuloma projecting [...] is normal to mildly enlarged. No acuteosseous abnormalities.[facility] CenterUrinalysis2020-12-12 05:27:00 Test Item Value Reference Range Interpretation Comments APPEARANCE (test code Slightly Cloudy Clear A = 1051138520) COLOR (test code = Yellow Yellow 3303461558) PH (test code = 4.8-8.0 2055455584) SP GRAVITY (test code >=1.030 1.003-1.030 = 3171566059) GLU U QUAL (test code Negative Negative = 4798929818) BLOOD (test code = Trace Negative A 1042859752) KETONES (test code = Negative Negative 3324728115) PROTEIN (test code = Negative Negative 2887-8) UROBILIN (test code = 1.0 mg/dL See_Comment [Auto mated 8542748837) message] The system which generated this result transmit gulshan reference range : 0-1.0 mg/dL. Th e reference range was not used to interpret this result as normal/abnormal . BILIRUBIN (test code Small Negative A = 0809369357) NITRITE (test code = Negative Negative 5022912538) LEUK NICHOLE (test code Trace Negative A = 3541481105) RBC/HPF (test code = See_Comment [Autom ated 8247798990) message] The system which generated this result transmit gulshan reference range : 0 - 3 HPF. The reference range was not used to interpret this result as normal/abnormal . WBC/HPF (test code = See_Comment [Autom ated 1814020529) message] The system which generated this result transmit gulshan reference range : 0 - 5 HPF. The reference range was not used to interpret this result as normal/abnormal . BACTERIA (test code = Few Negative A 0906219634) AMORPHOUS (test code Few Rare HPF A = 4621570699) SQ EPITH (test code = HPF 4674704364) Lab Interpretation Abnormal (test code = 49241-7) [facility] CenterCOVID-19 (ID NOW RAPID TESTING)2020-03-26 04:39:00 Test Item Value Reference Range Interpretation Comments SARS-CoV-2 Rapid ID NOW Not Detected Not Detected (test code = 22191-8) KIM (test code = KIM) ID NOW COVID-19 Assay is an isothermal nucleic acid amplification test intended for the qualitative detection of nucleic acid from SARS-CoV-2 viral RNA in nasopharyngeal (STRUCTURAL FITTER) specimens. It is used under Emergency Use [...] indicated. Lab Interpretation Normal (test code = 88866-1) [facility] CenterComplete Metabolic [id number] 04:12:00 Test Item Value Reference Range Interpretation Comments NA (test code = 139 mmol/L 135-145 6089877480) K (test code = 4.5 mmol/L 3.5-5 2308351200) CL (test code = 108 mmol/L 98-108 0348306666) CO2 TOTAL (test code = 22 mmol/L 23-31 L 0552741028) AGAP (test code = 2-16 3078304718) BUN (test code = 17 mg/dL 7-23 0982038376) GLUCOSE (test code = 102 mg/dL 70-110 3524442200) CREATININE (test code = 0.96 mg/dL 0.5-1.04 7346695217) TOTAL BILI (test code = 0.7 mg/dL 0.1-1.6 1468706852) CALCIUM (test code = 9.3 mg/dL 8.6-10.6 2210026399) T PROTEIN (test code = 7.3 g/dL 6.3-8.2 4073450321) ALBUMIN (test code = 4.1 g/dL 3.5-5 3355218476) ALK PHOS (test code = 675 U/L 34-122 H 4076443984) ALTv (test code = 115 U/L 5-35 H 1742-6) AST(SGOT) (test code = 100 U/L 13-40 H 3301088462) eGFR Calculation mL/min/1.73m2 (Non-) (test code = 0890238750) eGFR Calculation mL/min/1.73m2 () (test code = 9530691061) KIM (test code = KIM) Association of [...] tests). Lab Interpretation Abnormal (test code = 15024-8) [facility] CenterLipase, [id number] 04:11:00 Test Item Value Reference Range Interpretation Comments LIPASE (test code = 2767335789) 171 U/L 0-220 Lab Interpretation (test code = Normal 01787-6) [facility]CB with [id number] 03:56:00 Test Item Value Reference Range Interpretation Comments WBC (test code = See_Comment [Automated 1190-2) message] The sy stem which [...] RDW-SD (test code = 47.5 fL 39-49.9 59121-0) RDW-CV (test code = 13.3 % 12-15.5 788-0) PLT (test code = See_Comment [Automated 777-3) message] The sy stem which generated this result transmitted reference range : 166 - 358 10*3/ ?L. The reference r luca was not used to interpret this result as normal/abnormal . MPV (test code = 9.4 fL 9.5-12.9 L 54956-8) NRBC/100 WBC (test See_Comment [Automat ed code = 7384725844) message] The system which generated this result transmitted reference range : 0.0 - 10.0 /100 WBCs. The refer ence range was not u sed to interpret th is result as normal/abnormal . NRBC x10^3 (test code <0.01 See_Comment [Auto mated = 0066002584) message] The s ystem which generated this result transmitted reference range : 10*3/?L. The reference range was not used to interpret this result as normal/abnormal . GRAN MAT (NEUT) % 67.1 % (test code = 770-8) IMM GRAN % (test code 0.70 % = 2429668301) LYMPH % (test code = 22.2 % 736-9) MONO % (test code = 6.4 % 5905-5) EOS % (test code = 2.9 % 713-8) BASO % (test code = 0.7 % 706-2) GRAN MAT x10^3(ANC) 3.69 10*3/uL 1.88-7.09 (test code = 2561545889) IMM GRAN x10^3 (test 0.04 10*3/uL 0-0.06 code = 1226651558) LYMPH x10^3 (test code 1.22 10*3/uL 1.32-3.29 L = 731-0) MONO x10^3 (test code 0.35 10*3/uL 0.33-0.92 = 742-7) EOS x10^3 (test code = 0.16 10*3/uL 0.03-0.39 711-2) BASO x10^3 (test code 0.04 10*3/uL 0.01-0.07 = 704-7) Lab Interpretation Abnormal (test code = 98364-0) [facility] CenterMR BRAIN WO [id number] 17:24:06 Impression: 1. ?Normal MRI brain. 2. [...] MRI brain.2. Mastoid effusions.3. Right petrous apex effusion.[facility] CenterBLOOD CULTURE [id number] 21:10:00 Test Item Value Reference Range Interpretation Comments Blood Culture-Aerobic Culture positive. No growth AA P revious (test code = 05952-2) See Blood Culture p reliminary Workup for verified result additional was Culture In information. Progress on 02/02/2020 at 1901 CDT Blood No organisms No growth Previous Culture-Anaerobic isolated preliminar y (test code = 54485-4) verifi ed result was Culture In Progress on 02/03/2020 at 1314 CDT Lab Interpretation Abnormal (test code = 24488-1) [facility] CenterBLOOD CULTURE [id number] 21:01:00 Test Item Value Reference Range Interpretation Comments Blood Culture-Aerobic No organisms No growth Previo us (test code = 34395-9) isolated prelim inary verified result was Culture [...] Culture-Anaerobic isolated preliminar y (test code = 80889-6) verifi ed result was Culture In Progress [...] CDT Lab Interpretation Normal (test code = 59024-6) [facility] (NA, K, CL, CO2, GLUCOSE, BUN, CREATININE, CA)2020-02-07 09:09:00 Test Item Value Reference Range Interpretation Comments NA (test code = 136 mmol/L 135-145 7465501941) K (test code = 4.3 mmol/L 3.5-5 Slight hemoly sis 4743384303) CL (test code = 104 mmol/L 98-108 0784220078) CO2 TOTAL (test 26 mmol/L 23-31 code = 2132597074) AGAP (test code = 2-16 7934225017) BUN (test code = 12 mg/dL 7-23 Slight hemo lysis 3894232129) GLUCOSE (test code 98 mg/dL 70-110 = 3478918126) CREATININE (test 0.50 mg/dL 0.5-1.04 code = 3489489547) CALCIUM (test code 8.9 mg/dL 8.6-10.6 = 4347611865) eGFR Calculation mL/min/1.73m2 (Non-) (test code = 8220042542) eGFR Calculation mL/min/1.73m2 () (test code = 1595516832) KIM (test code = Association of KIM) [...] in imaging tests). [facility] WITH [id number] 08:58:00 Test Item Value Reference Range Interpretation Comments WBC (test code = See_Comment [Automated 8383-2) message] The EGT stem which generated this result transmitted reference [...] RDW-SD (test code = 48.5 fL 39-49.9 95233-5) RDW-CV (test code = 13.9 % 12-15.5 788-0) PLT (test code = See_Comment [Automated 777-3) message] The sy stem which generated this result transmitted reference range : 166 - 358 10*3/ ?L. The reference r luca was not used to interpret this result as normal/abnormal . MPV (test code = 9.1 fL 9.5-12.9 L 53712-0) NRBC/100 WBC (test See_Comment [Automat ed code = 1719351670) message] The system which generated this result transmitted reference range : 0.0 - 10.0 /100 WBCs. The refer ence range was not u sed to interpret th is result as normal/abnormal . NRBC x10^3 (test code <0.01 See_Comment [Auto mated = 1903102936) message] The s ystem which generated this result transmitted reference range : 10*3/?L. The reference range was not used to interpret this result as normal/abnormal . GRAN MAT (NEUT) % 69.8 % (test code = 770-8) IMM GRAN % (test code 0.40 % = 8854304693) LYMPH % (test code = 21.9 % 736-9) MONO % (test code = 6.7 % 5905-5) EOS % (test code = 0.8 % 713-8) BASO % (test code = 0.4 % 706-2) GRAN MAT x10^3(ANC) 3.66 10*3/uL 1.88-7.09 (test code = 9051000396) IMM GRAN x10^3 (test <0.03 0-0.06 code = 7437127018) LYMPH x10^3 (test code 1.15 10*3/uL 1.32-3.29 L = 731-0) MONO x10^3 (test code 0.35 10*3/uL 0.33-0.92 = 742-7) EOS x10^3 (test code = 0.04 10*3/uL 0.03-0.39 711-2) BASO x10^3 (test code <0.03 0.01-0.07 = 704-7) Lab Interpretation Abnormal (test code = 01887-8) [facility]SMST[facility] MUSCLE AB,IGG W/[id number] 15:17:00 Test Item Value Reference Range Interpretation Comments F-ACTIN (SMOOTH See_Comment If F-Actin (Smooth Muscle) MUSCLE) AB, Antibody, IgG i s negative, IGG(BEAKER) (test the Smooth Muscle Antibody code = 08460-8) titer by IFA is not performed.REFER ENCE [...] for A IH is strong.Performe d By: [employer] [address] [place], [place] [address]Yxiqiyjceg Director: Praveena Mantilla MD [Automated mess age] The system which ge nerated this result transmit gulshan reference range : 0 - 19 Units. The refe rence range was not used to interpret this result as normal/abnormal . [facility] CenterMITOCHONDRIAL M2 AB, [id number] 00:28:00 Test Item Value Reference Range Interpretation Comments AMA (test code = See_Comment H REFERENCE I NTERVAL: 83699-4) Mitochondrial ( M2) Antibody, IgG ? ?20.0 [...] does not rule out PBC.Perform ed By: [facility] [address] [place], [place] [address]Peczyxeabh Director: Praveena Mantilla MD [Aut omated message] The sy stem which generated this result transmit gulshan reference range : 0.0 - 24.9 Units. The reference range was not used to int erpret this result as normal/abnormal . Lab Interpretation Abnormal (test code = 28932-7) [facility] CenterBLOOD CULTURE [id number] 17:01:00 Test Item Value Reference Range Interpretation Comments Blood Culture-Aerobic No organisms No growth Previo us (test code = 63193-9) isolated prelim inary verified result was Culture [...] Culture-Anaerobic isolated preliminar y (test code = 45692-9) verifi ed result was Culture In Progress [...] CDT Lab Interpretation Normal (test code = 05161-7) [facility] CenterBLOOD CULTURE [id number] 14:01:00 Test Item Value Reference Range Interpretation Comments Blood Culture Coagulase negative Addition al Workup (test Staphylococcus work-up perfo rmed code = 600-7) only per reque st. Culture plate(s ) will be saved until this date : - 02/10/20 Gram stain Isolated from aerobic (test code = bottle Gram positive 664-3) cocci [facility] CenterCOMP. METABOLIC PANEL (09672)2020-02-05 09:59:00 Test Item Value Reference Range Interpretation Comments NA (test code = 140 mmol/L 135-145 1906591187) K (test code = 3.7 mmol/L 3.5-5 0079921046) CL (test code = 107 mmol/L 98-108 5634977459) CO2 TOTAL (test code = 25 mmol/L 23-31 1286172450) AGAP (test code = 2-16 9889563746) BUN (test code = 11 mg/dL 7-23 9241665703) GLUCOSE (test code = 90 mg/dL 70-110 4743391916) CREATININE (test code = 0.58 mg/dL 0.5-1.04 6585848589) TOTAL BILI (test code = 0.9 mg/dL 0.1-1.2 4115276730) CALCIUM (test code = 8.9 mg/dL 8.6-10.6 9734258438) T PROTEIN (test code = 6.7 g/dL 6.3-8.2 0099207924) ALBUMIN (test code = 3.5 g/dL 3.5-5 9039952219) ALK PHOS (test code = 518 U/L 34-122 H 0358510999) ALTv (test code = 84 U/L 5-35 H 1742-6) AST(SGOT) (test code = 49 U/L 13-40 H 0124050650) eGFR Calculation mL/min/1.73m2 (Non-) (test code = 5555447851) eGFR Calculation mL/min/1.73m2 () (test code = 2596644972) KIM (test code = KIM) Association of [...] tests). Lab Interpretation Abnormal (test code = 60860-3) [facility] WITH [id number] 09:43:00 Test Item Value Reference Range Interpretation [...] RDW-SD (test code = 48.1 fL 39-49.9 38953-2) RDW-CV (test code = 13.4 % 12-15.5 788-0) PLT (test code = See_Comment [Automated 777-3) message] The sy stem which generated this result transmitted reference range : 166 - 358 10*3/ ?L. The reference r luca was not used to interpret this result as normal/abnormal . MPV (test code = 8.7 fL 9.5-12.9 L 54294-6) NRBC/100 WBC (test See_Comment [Automat ed code = 6903357826) message] The system which generated this result transmitted reference range : 0.0 - 10.0 /100 WBCs. The refer ence range was not u sed to interpret th is result as normal/abnormal . NRBC x10^3 (test code <0.01 See_Comment [Auto mated = 7125038864) message] The s ystem which generated this result transmitted reference range : 10*3/?L. The reference range was not used to interpret this result as normal/abnormal . GRAN MAT (NEUT) % 68.3 % (test code = 770-8) IMM GRAN % (test code 0.20 % = 5881341685) LYMPH % (test code = 24.2 % 736-9) MONO % (test code = 5.5 % 5905-5) EOS % (test code = 1.4 % 713-8) BASO % (test code = 0.4 % 706-2) GRAN MAT x10^3(ANC) 3.47 10*3/uL 1.88-7.09 (test code = 8903601246) IMM GRAN x10^3 (test <0.03 0-0.06 code = 7217168075) LYMPH x10^3 (test code 1.23 10*3/uL 1.32-3.29 L = 731-0) MONO x10^3 (test code 0.28 10*3/uL 0.33-0.92 L = 742-7) EOS x10^3 (test code = 0.07 10*3/uL 0.03-0.39 711-2) BASO x10^3 (test code <0.03 0.01-0.07 = 704-7) Lab Interpretation Abnormal (test code = 26806-0) [facility] CERVICAL SPINE WO [id number] 05:59:37 Mild degenerative changes most pronounced at C5-C6 and C6-C7 as above. RL: 460 AFC: [id number] Ordering physician: JESUSITA AGUILLON INDICATION: Neck pain, [...] at C5-C6 and C6-C7 as above.RL: 460AF: [id number] signed by Minal Vaughan MD, PhD at 02/05/2020 12:59 AMUnDell Children's Medical CenterOCCULT (GUAIAC) [id number] 14:40:00 Test Item Value Reference Range Interpretation Comments Occult (guaiac) Blood (test code = Negative Negative 2335-8) Lab Interpretation (test code = Normal 48642-7) [facility] CenterN-TERMINAL [id number] 10:32:00 Test Item Value Reference Range Interpretation Comments NT-proBNP (test code 403 pg/mL See_Comment H [Autom ated = 9719547389) message] The system which generated this result transmitted reference range : <=125. The reference range was not used to interpret this result as normal/abnormal . KIM (test code = KIM) Biotin has been reported to cause a negative bias, interpret results relative to patient's use of biotin. Lab Interpretation Abnormal (test code = 04557-4) [facility]. METABOLIC PANEL (62173)2020-02-04 10:24:00 Test Item Value Reference Range Interpretation Comments NA (test code = 138 mmol/L 135-145 9106052797) K (test code = 3.7 mmol/L 3.5-5 9333333135) CL (test code = 106 mmol/L 98-108 9286624325) CO2 TOTAL (test code = 27 mmol/L 23-31 9903483162) AGAP (test code = 2-16 1485665691) BUN (test code = 9 mg/dL 7-23 3341709419) GLUCOSE (test code = 105 mg/dL 70-110 0562880384) CREATININE (test code = 0.59 mg/dL 0.5-1.04 6674390745) TOTAL BILI (test code = 0.9 mg/dL 0.1-1.0 5933901817) CALCIUM (test code = 9.0 mg/dL 8.6-10.6 0948989323) T PROTEIN (test code = 6.4 g/dL 6.3-8.2 2982949512) ALBUMIN (test code = 3.2 g/dL 3.5-5 L 1686118444) ALK PHOS (test code = 486 U/L 34-122 H 1428094169) ALTv (test code = 91 U/L 5-35 H 1742-6) AST(SGOT) (test code = 41 U/L 13-40 H 4434256021) eGFR Calculation mL/min/1.73m2 (Non-) (test code = 4563810686) eGFR Calculation mL/min/1.73m2 () (test code = 5430248923) KIM (test code = KIM) Association of [...] tests). Lab Interpretation Abnormal (test code = 08701-9) [facility] CenterMAGNESIUM2020-10-22 10:24:00 Test Item Value Reference Range Interpretation Comments MAGNESIUM (test code = 6548130593) 1.8 mg/dL 1.7-2.4 Lab Interpretation (test code = Normal 65320-1) [facility] CenterCB with [id number] 10:11:00 Test Item Value Reference Range Interpretation [...] RDW-SD (test code = 47.9 fL 39-49.9 96690-8) RDW-CV (test code = 13.7 % 12-15.5 788-0) PLT (test code = See_Comment [Automated 777-3) message] The sy stem which generated this result transmitted reference range : 166 - 358 10*3/ ?L. The reference r luca was not used to interpret this result as normal/abnormal . MPV (test code = 8.5 fL 9.5-12.9 L 69636-6) NRBC/100 WBC (test See_Comment [Automat ed code = 7486177499) message] The system which generated this result transmitted reference range : 0.0 - 10.0 /100 WBCs. The refer ence range was not u sed to interpret th is result as normal/abnormal . NRBC x10^3 (test code <0.01 See_Comment [Auto mated = 9672627679) message] The s ystem which generated this result transmitted reference range : 10*3/?L. The reference range was not used to interpret this result as normal/abnormal . GRAN MAT (NEUT) % 74.2 % (test code = 770-8) IMM GRAN % (test code 0.40 % = 5012194154) LYMPH % (test code = 16.6 % 736-9) MONO % (test code = 6.8 % 5905-5) EOS % (test code = 1.7 % 713-8) BASO % (test code = 0.3 % 706-2) GRAN MAT x10^3(ANC) 5.60 10*3/uL 1.88-7.09 (test code = 8720340385) IMM GRAN x10^3 (test 0.03 10*3/uL 0-0.06 code = 6659823375) LYMPH x10^3 (test code 1.25 10*3/uL 1.32-3.29 L = 731-0) MONO x10^3 (test code 0.51 10*3/uL 0.33-0.92 = 742-7) EOS x10^3 (test code = 0.13 10*3/uL 0.03-0.39 711-2) BASO x10^3 (test code <0.03 0.01-0.07 = 704-7) Lab Interpretation Abnormal (test code = 06801-1) [facility] CenterANTI-NUCLEAR ANTIBODY [id number] 19:43:00 Test Item Value Reference Range Interpretation Comments LESLY (test code = Negative Negative 3188370380) KIM (test code = KIM) Cytoplasmic staining reactions observed. Negative - No Anti-Nuclear Antibodies detected by IFA.Positive - LESLY IFA screen performed with a 1:80 dilution in adults and a 1:40 dilution in pediatrics. Any LESLY "Positive" will have titer performed and reported separately. Lab Interpretation (test Normal code = 29240-9) [facility] CenterCERULOPLASMIN2020-10-21 18:45:00 Test Item Value Reference Range Interpretation Comments CERULO (test code = 2904413008) 55 mg/dL 25-63 Lab Interpretation (test code = Normal 24638-4) [facility] CenterAMMONIA, [id number] 17:29:00 Test Item Value Reference Range Interpretation Comments AMMONIA (test code = 8518374976) <9 9-33 L Lab Interpretation (test code = Abnormal 92903-9) [facility] CenterBLOOD CULTURE [id number] 17:07:00 Test Item Value Reference Range Interpretation Comments Blood Culture-Aerobic Culture positive. No growth AA P revious (test code = 38222-3) See Blood Culture p reliminary Workup for verified result additional was Culture In information. Progress on 01/31/2020 at 1701 CDTPreviou s preliminary verified result was No growth a t 24 hours on 02/01/2020 at 1401 CDT Blood No organisms No growth Previous Culture-Anaerobic isolated preliminar y (test code = 26856-3) verifi ed result was Culture In Progress on 01/31/2020 at 1701 CDTPreviou s preliminary verified result was No growth a t 24 hours on 02/01/2020 at 1401 CDT Lab Interpretation Abnormal (test code = 81848-0) [facility] CenterBL[facility] CULTURE [id number] 17:07:00 Test Item Value Reference Range Interpretation [...] positive cocci is no longer being reported. [facility] CenterCREATINE [id number] 10:44:00 Test Item Value Reference Range Interpretation Comments CK (test code = 1142851213) 21 U/L 33-194 L Lab Interpretation (test code = Abnormal 17272-8) [facility] CenterN-TERMINAL [id number] 09:34:00 Test Item Value Reference Range Interpretation Comments NT-proBNP (test code 850 pg/mL See_Comment H [Autom ated = 6676656697) message] The system which generated this result transmitted reference range : <=125. The reference range was not used to interpret this result as normal/abnormal . KIM (test code = KIM) Biotin has been reported to cause a negative bias, interpret results relative to patient's use of biotin. Lab Interpretation Abnormal (test code = 57767-2) [facility]. METABOLIC PANEL (31811)2020-02-03 09:26:00 Test Item Value Reference Range Interpretation Comments NA (test code = 136 mmol/L 135-145 4780136382) K (test code = 3.6 mmol/L 3.5-5 8118543415) CL (test code = 104 mmol/L 98-108 4233003176) CO2 TOTAL (test code = 28 mmol/L 23-31 3073242440) AGAP (test code = 2-16 3263369531) BUN (test code = 7 mg/dL 7-23 9157722389) GLUCOSE (test code = 138 mg/dL 70-110 H 0762499324) CREATININE (test code = 0.61 mg/dL 0.5-1.04 7827095318) TOTAL BILI (test code = 1.0 mg/dL 0.1-1.3 3547736589) CALCIUM (test code = 9.2 mg/dL 8.6-10.6 9464917140) T PROTEIN (test code = 6.6 g/dL 6.3-8.2 9564853902) ALBUMIN (test code = 3.5 g/dL 3.5-5 9596975551) ALK PHOS (test code = 584 U/L 34-122 H 8351245369) ALTv (test code = 131 U/L 5-35 H 1742-6) AST(SGOT) (test code = 49 U/L 13-40 H 0461339523) eGFR Calculation mL/min/1.73m2 (Non-) (test code = 6099176696) eGFR Calculation mL/min/1.73m2 () (test code = 6810652604) KIM (test code = KIM) Association of [...] tests). Lab Interpretation Abnormal (test code = 93873-3) [facility]2020[facility] 09:26:00 Test Item Value Reference Range Interpretation Comments MAGNESIUM (test code = 4539954944) 1.7 mg/dL 1.7-2.4 Lab Interpretation (test code = Normal 48309-7) [facility]PHOSPHORUS2020-10-21 09:26:00 Test Item Value Reference Range Interpretation Comments PHOSPHORUS (test code = 3364374168) 4.1 mg/dL 2.5-5 Lab Interpretation (test code = Normal 18833-9) [facility] CenterURIC [id number] 09:26:00 Test Item Value Reference Range Interpretation Comments URIC ACID (test code = 1501942646) 3.4 mg/dL 2.9-6 Lab Interpretation (test code = Normal 02760-6) [facility] WITH [id number] 08:58:00 Test Item Value Reference Range Interpretation [...] RDW-SD (test code = 47.2 fL 39-49.9 54523-4) RDW-CV (test code = 13.2 % 12-15.5 788-0) PLT (test code = See_Comment [Automated 777-3) message] The sy stem which generated this result transmitted reference range : 166 - 358 10*3/ ?L. The reference r luca was not used to interpret this result as normal/abnormal . MPV (test code = 8.7 fL 9.5-12.9 L 96431-8) NRBC/100 WBC (test See_Comment [Automat ed code = 0028551175) message] The system which generated this result transmitted reference range : 0.0 - 10.0 /100 WBCs. The refer ence range was not u sed to interpret th is result as normal/abnormal . NRBC x10^3 (test code <0.01 See_Comment [Auto mated = 2076581094) message] The s ystem which generated this result transmitted reference range : 10*3/?L. The reference range was not used to interpret this result as normal/abnormal . GRAN MAT (NEUT) % 78.4 % (test code = 770-8) IMM GRAN % (test code 0.50 % = 5084737812) LYMPH % (test code = 12.5 % 736-9) MONO % (test code = 6.1 % 5905-5) EOS % (test code = 2.1 % 713-8) BASO % (test code = 0.4 % 706-2) GRAN MAT x10^3(ANC) 6.43 10*3/uL 1.88-7.09 (test code = 4637365514) IMM GRAN x10^3 (test 0.04 10*3/uL 0-0.06 code = 1063202062) LYMPH x10^3 (test code 1.02 10*3/uL 1.32-3.29 L = 731-0) MONO x10^3 (test code 0.50 10*3/uL 0.33-0.92 = 742-7) EOS x10^3 (test code = 0.17 10*3/uL 0.03-0.39 711-2) BASO x10^3 (test code 0.03 10*3/uL 0.01-0.07 = 704-7) Lab Interpretation Abnormal (test code = 96661-7) [facility] CenterVALPROIC ACID, [id number] 05:42:00 Test Item Value Reference Range Interpretation Comments Valproic Acid, Free <2.0 4-15 L (test code = 8965187700) KIM (test code = KIM) Toxic Range: ? Greater than 15 ug/mL Test developed and characteristics determined by [facility] Laboratory Services. Lab Interpretation Abnormal (test code = 56349-6) [facility] CenterHAV ANTIBODY (IGG AND IGM)2020-02-03 04:20:00 Test Item Value Reference Range Interpretation Comments HAV Total (test code Positive = 7055086607) HAVT Semi-Quantitative (test code = 3231070368) KIM (test code = KIM) Indicates past or present infection with HAV or exposure to HAV due to vaccination. [facility] CenterHEPATITIS B SURFACE [id number] 04:12:00 Test Item Value Reference Range Interpretation Comments HBsAB (test code = Negative 4030715824) HBsAb mIU/mL Semi-Quantitative (test code = 2221554574) KIM (test code = Interpretation: KIM) ?Hepatitis B Surface Antibody ? Negative - Patient is considered to be not immune to infection with HBV. ? ? Positive - Anti-HBs detected at greater than or equal to 12 mIU/mL. ?Patient is considered to be immune to infection with HBV. ? [facility] CenterHCV [id number] 04:12:00 Test Item Value Reference Range Interpretation Comments HCV Ab (test code = 69005-4) Negative HCV Semi-Quantitative (test code = 42008-6) [facility]HE[facility] SURFACE [id number] 03:55:00 Test Item Value Reference Range Interpretation Comments HBsAg Semi-Quantitative (test code = Negative Negative 5195-3) [facility] CenterPROCALCITONIN2020-10-21 03:54:00 Test Item Value Reference Range Interpretation Comments Procalcitonin (test 0.05 ng/mL <0.07 code = 4287596884) KIM (test code = KIM) INTERPRETATION OF [...] lung abscess/empyema. For further information please refer to:[email or web address] Lab Interpretation Normal (test code = 00424-5) [facility] CenterGLYCOSYLATED HEMOGLOBIN (A1C)2020-02-02 22:47:00 Test Item Value Reference Range Interpretation Comments HGB A1C (test code = 4.5 % 4-6 4548-4) KIM (test code = KIM) %A1C (NGSP) Interpretation (ADA)4.8-5.6 ? ? Normal or (Non-Diabetic Range)5.7-6.4 ? ? Increased Risk (Pre-Diabetic)>6.5 ?Diabetes Indicated Lab Interpretation Normal (test code = 23320-4) [facility] CenterVALPROIC ACID, [id number] 22:28:00 Test Item Value Reference Range Interpretation Comments VALPROIC A (test code = <10 50-100 L 4662759928) KIM (test code = KIM) Toxic Range: ?Greater than 100 ug/mL Lab Interpretation (test Abnormal code = 26702-5) [facility] CenterLIPID PANEL (23834)(TOTAL CHOLESTEROL, TRIGLYCERIDES, HDL)2020-02-02 21:23:00 Test Item Value Reference Range Interpretation Comments CHOL (test code = 343 mg/dL 120-200 H 7741809249) HDL (test code = 87 mg/dL >50 3518332094) HDLC RATIO (test code = See_Comment [Au tomated message] 7404144101) The system [employer] generated this result transmit gulshan reference range : <=4.5. The refe rence range was not u sed to interpret th is result as normal/abnormal . TRIG (test code = 131 mg/dL 30-170 8464922195) LDL CHOL (test code = 230 mg/dL See_Comment H [Auto mated message] 67270-1) The system [employer] generated this result transmit gulshan reference range : <=160. The refe rence range was not u sed to interpret th is result as normal/abnormal . VLDL (test code = 26 mg/dL 5-60 2831450896) Lab Interpretation (test Abnormal code = 94440-2) [facility] CenterPROTHROMBIN TIME / [id number] 21:16:00 Test Item Value Reference Range Interpretation Comments PROTIME PATIENT (test See_Comment [Auto mated message] code = 5964-2) The system [employer] generated this result transmitted ref erence range: 12.0 - 1 4.7 Seconds. The re ference range was not u sed to interpret this result as normal/abnor mal. INR (test code = 6301-6) Nor mal INR <1.1; Warfarin Therap eutic range 2.0 to 3. 0 or 2.5 to 3.5, dep ending upon the indica tions. Lab Interpretation (test Normal code = 57253-0) [facility] CenterCREATINE [id number] 21:15:00 Test Item Value Reference Range Interpretation Comments CK (test code = 3050311997) 37 U/L 33-194 Lab Interpretation (test code = Normal 48568-2) [facility] CenterLIPASE2020-10-20 12:34:00 Test Item Value Reference Range Interpretation Comments LIPASE (test code = 5896090154) 203 U/L 0-220 Lab Interpretation (test code = Normal 38553-6) [facility] CenterCOMP. METABOLIC PANEL (25380)2020-02-02 12:34:00 Test Item Value Reference Range Interpretation Comments NA (test code = 135 mmol/L 135-145 1561886068) K (test code = 3.5 mmol/L 3.5-5 5035373020) CL (test code = 103 mmol/L 98-108 5450551420) CO2 TOTAL (test code = 25 mmol/L 23-31 8137769203) AGAP (test code = 2-16 5038503905) BUN (test code = 8 mg/dL 7-23 1708778470) GLUCOSE (test code = 148 mg/dL 70-110 H 8970387369) CREATININE (test code = 0.55 mg/dL 0.5-1.04 2281104219) TOTAL BILI (test code = 1.2 mg/dL 0.1-1.1 H 1632906439) CALCIUM (test code = 9.4 mg/dL 8.6-10.6 5666003693) T PROTEIN (test code = 6.9 g/dL 6.3-8.2 4823454282) ALBUMIN (test code = 3.6 g/dL 3.5-5 4398167397) ALK PHOS (test code = 723 U/L 34-122 H 8432127210) ALTv (test code = 166 U/L 5-35 H 1742-6) AST(SGOT) (test code = 72 U/L 13-40 H 7439512351) eGFR Calculation mL/min/1.73m2 (Non-) (test code = 8155268039) eGFR Calculation mL/min/1.73m2 () (test code = 5532517700) KIM (test code = KIM) Association of [...] tests). Lab Interpretation Abnormal (test code = 10013-8) [facility] CenterLITHIUM2020-10-20 12:32:00 Test Item Value Reference Range Interpretation Comments [place] (test code = 0.4 mmol/L 0.6-1.2 L 8022772189) KIM (test code = KIM) Toxic Range: ? Greater than 1.2 mmol/L Lab Interpretation (test Abnormal code = 72497-7) [facility] CenterPOSD GLUCOSE (AUTOMATED)2020-02-02 11:34:00 Test Item Value Reference Range Interpretation Comments POCT GLU (test code = 6832517285) 138 mg/dL 70-110 H Lab Interpretation (test code = Abnormal 63569-4) [facility]. METABOLIC PANEL (753062020-02-02 10:51:00 Test Item Value Reference Range Interpretation Comments NA (test code = 129 mmol/L 135-145 L 3070996996) K (test code = 3.0 mmol/L 3.5-5 L 4457773069) CL (test code = 100 mmol/L 98-108 0070088960) CO2 TOTAL (test code = 22 mmol/L 23-31 L 1441191417) AGAP (test code = 2-16 8629080855) BUN (test code = 8 mg/dL 7-23 4163411072) GLUCOSE (test code = 632 mg/dL 70-110 HH 8352852235) CREATININE (test code = 0.54 mg/dL 0.5-1.04 0675918085) TOTAL BILI (test code = 1.0 mg/dL 0.1-1.2 3100382365) CALCIUM (test code = 7.9 mg/dL 8.6-10.6 L 0725719233) T PROTEIN (test code = 5.3 g/dL 6.3-8.2 L 0798081281) ALBUMIN (test code = 2.7 g/dL 3.5-5 L 5969457265) ALK PHOS (test code = 562 U/L 34-122 H 4331077715) ALTv (test code = 138 U/L 5-35 H 1742-6) AST(SGOT) (test code = 61 U/L 13-40 H 0029774754) eGFR Calculation mL/min/1.73m2 (Non-) (test code = 5536818970) eGFR Calculation mL/min/1.73m2 () (test code = 4031984628) KIM (test code = KIM) Association of [...] tests). Lab Interpretation Abnormal (test code = 23932-5) [facility] CenterLIPASE2020-10-20 10:40:00 Test Item Value Reference Range Interpretation Comments LIPASE (test code = 3174471570) 140 U/L 0-220 Lab Interpretation (test code = Normal 96762-6) [facility] CenterLITHIUM2020-10-20 10:37:00 Test Item Value Reference Range Interpretation Comments [place] (test code = 0.5 mmol/L 0.6-1.2 L 7087605898) KIM (test code = KIM) Toxic Range: ? Greater than 1.2 mmol/L Lab Interpretation (test Abnormal code = 82148-7) [facility] CenterCB WITH [id number] 09:57:00 Test Item Value Reference Range Interpretation Comments WBC (test code = See_Comment [Automated 3390-2) message] The sy stem which generated this result transmitted reference range : 4.30 - 11.10 10*3/?L. The reference range was not used to interpret this result as normal/abnormal . RBC (test code = See_Comment L [Automated 786-8) message] The sy stem which generated this [...] RDW-SD (test code = 47.2 fL 39-49.9 26010-8) RDW-CV (test code = 13.1 % 12-15.5 788-0) PLT (test code = See_Comment [Automated 777-3) message] The sy stem which generated this result transmitted reference range : 166 - 358 10*3/ ?L. The reference r luca was not used to interpret this result as normal/abnormal . MPV (test code = 9.7 fL 9.5-12.9 23153-4) NRBC/100 WBC (test See_Comment [Automat ed code = 2892613502) message] The system which generated this result transmitted reference range : 0.0 - 10.0 /100 WBCs. The refer ence range was not u sed to interpret th is result as normal/abnormal . NRBC x10^3 (test code <0.01 See_Comment [Auto mated = 5953364061) message] The s ystem which generated this result transmitted reference range : 10*3/?L. The reference range was not used to interpret this result as normal/abnormal . GRAN MAT (NEUT) % 78.6 % (test code = 770-8) IMM GRAN % (test code 0.50 % = 1539730288) LYMPH % (test code = 13.1 % 736-9) MONO % (test code = 5.5 % 5905-5) EOS % (test code = 2.0 % 713-8) BASO % (test code = 0.3 % 706-2) GRAN MAT x10^3(ANC) 5.18 10*3/uL 1.88-7.09 (test code = 6990787486) IMM GRAN x10^3 (test 0.03 10*3/uL 0-0.06 code = 1350995134) LYMPH x10^3 (test code 0.86 10*3/uL 1.32-3.29 L = 731-0) MONO x10^3 (test code 0.36 10*3/uL 0.33-0.92 = 742-7) EOS x10^3 (test code = 0.13 10*3/uL 0.03-0.39 711-2) BASO x10^3 (test code <0.03 0.01-0.07 = 704-7) Lab Interpretation Abnormal (test code = 51498-6) [facility] POSITIVE BLOOD PATHOGENS DNA [id number] 06:56:00 Test Item Value Reference Range Interpretation Comments Coagulase Negative Positive Negative, See A Staphylococcus (test Comment/Narrative code = 32456-8) KIM (test code = KIM) Coagulase negative [...] contact the Antimicrobial Stewardship Program with questions.Pager: ?[phone] Testing included eleven identification and three resistance marker targets. Lab Interpretation Abnormal (test code = 23551-8) [facility] CenterLAB ONLY COVID [id number] 20:46:00COVID DMT InterpretationInterpretation/Recommendations\\nTests (PCR) for Active Infection [...] test is performed there is approximately a sfr-ym-rvmgs chance the patient had been infected and [...] and IgG antibodies, this may be the explanation.[facility] LABORATORY SERVICESCOVID PygpgdqCHAA-ZrY-1 Rapid ID NOW (no units) ? ? Date ? Value ? 01/31/2020 ? Not Detected ? ? ? 08/21/2019 ? Not Detected ? [facility] SERVICESUn[facility] C[facility] VENOUS BLOOD [id number] 19:37:00 Test Item Value Reference Range Interpretation Comments PH (test code = 7.32-7.42 L 2211168288) PCO2 SANDHYA (test code = See_Comment [Auto mated message] 9087477637) The system [employer] generated this result transmitted ref erence range: 41 - 51 mmHg. The reference r luca was not used to interpret this result as normal/abnor mal. PO2 SANDHYA (test code = See_Comment HH [Autom ated message] 3644485146) The system [employer] generated this result transmitted ref erence range: 25 - 40 mmHg. The reference r luca was not used to interpret this result as normal/abnor mal. HCO3 SANDHYA (test code = See_Comment L [Auto mated message] 7701677589) The system [employer] generated this result transmitted ref erence range: 24 - 28 mEq/L. The reference r luca was not used to interpret this result as normal/abnor mal. AC VBE(BEAKER) (test mEq/L code = 7914191727) Lab Interpretation (test Abnormal code = 83551-8) [facility] CenterUS ABDOMEN [id number] 17:02:17 No sonographic findings to explain patient's [...] Results portions of the IVC appear unremarkable. [facility], Radiant Results Inft User - 02/01/2020 12:03 [...] kidneys. No appreciable atrophyor cortical thinning. No hydronephrosis.[facility] CenterUrine Datmtpy2001-21-05 16:35:00 Test Item Value Reference Range Interpretation Comments URINE CULTURE (test No aerobic growth (< code = 630-4) 1000 CFU/mL) [facility] CenterDIFF CONSULT [id number] 15:41:00 MATURE LEUKOCYTES WITH REACTIVE LYMPHOCYTES, REACTIVE MONOCYTES AND OCCASIONAL TOXIC NEUTROPHILS. RARE HYPERSEGMENTED NEUTROPHILS. MACROCYTIC ANEMIA WITH POLYCHROMASIA AND POIKILOCYTOSIS INCLUDING BURRCELLS AND TARGET CELLS. THESE CHANGES ARE SUGGESTIVE OF EARLY VITAMIN B12 DEFICIENCY ANEMIA. AMPLE PLATELETS. [facility] CenterPOCT GLUCOSE (AUTOMATED)2020-02-01 13:06:00 Test Item Value Reference Range Interpretation Comments POCT GLU (test code = 3340177642) 104 mg/dL 70-110 Lab Interpretation (test code = Normal 04461-0) [facility] CenterCOMP. METABOLIC PANEL (24207)2020-02-01 13:00:00 Test Item Value Reference Range Interpretation Comments NA (test code = 139 mmol/L 135-145 0702613909) K (test code = 4.1 mmol/L 3.5-5 5443473879) CL (test code = 112 mmol/L 98-108 H 0723871115) CO2 TOTAL (test code = 20 mmol/L 23-31 L 9910833470) AGAP (test code = 2-16 7519721284) BUN (test code = 16 mg/dL 7-23 2330146355) GLUCOSE (test code = 99 mg/dL 70-110 2876552577) CREATININE (test code = 0.85 mg/dL 0.5-1.04 5002116027) TOTAL BILI (test code = 1.3 mg/dL 0.1-1.1 H 4887296456) CALCIUM (test code = 8.6 mg/dL 8.6-10.6 6804352023) T PROTEIN (test code = 6.2 g/dL 6.3-8.2 L 3821216386) ALBUMIN (test code = 3.2 g/dL 3.5-5 L 7571992841) ALK PHOS (test code = 646 U/L 34-122 H 7703146621) ALTv (test code = 209 U/L 5-35 H 1742-6) AST(SGOT) (test code = 110 U/L 13-40 H 6132118474) eGFR Calculation mL/min/1.73m2 (Non-) (test code = 0495108888) eGFR Calculation mL/min/1.73m2 () (test code = 1612964660) KIM (test code = KIM) Association of [...] tests). Lab Interpretation Abnormal (test code = 36412-1) [facility] CenterLIPASE2020-10-19 11:07:00 Test Item Value Reference Range Interpretation Comments LIPASE (test code = 9793951006) 353 U/L 0-220 H Lab Interpretation (test code = Abnormal 41963-9) [facility] CenterLITHIUM2020-10-19 11:05:00 Test Item Value Reference Range Interpretation Comments [place] (test code = 1.0 mmol/L 0.6-1.2 7049416271) KIM (test code = KIM) Toxic Range: ? Greater than 1.2 mmol/L Lab Interpretation (test Normal code = 40125-6) [facility] with Efcndrvlless2902-25-00 10:56:00 Test Item Value Reference Range Interpretation [...] RDW-SD (test code = 49.7 fL 39-49.9 97365-6) RDW-CV (test code = 13.2 % 12-15.5 788-0) PLT (test code = See_Comment L [Automated 777-3) message] The sy stem which generated this result transmitted reference range : 166 - 358 10*3/ ?L. The reference r luca was not used to interpret this result as normal/abnormal . MPV (test code = 9.7 fL 9.5-12.9 11280-3) NRBC/100 WBC (test See_Comment [Automat ed code = 8585997267) message] The system which generated this result transmitted reference range : 0.0 - 10.0 /100 WBCs. The refer ence range was not u sed to interpret th is result as normal/abnormal . NRBC x10^3 (test code <0.01 See_Comment [Auto mated = 0700350431) message] The s ystem which generated this result transmitted reference range : 10*3/?L. The reference range was not used to interpret this result as normal/abnormal . GRAN MAT (NEUT) % 79.3 % (test code = 770-8) IMM GRAN % (test code 0.40 % = 0025689595) LYMPH % (test code = 11.4 % 736-9) MONO % (test code = 6.1 % 5905-5) EOS % (test code = 2.6 % 713-8) BASO % (test code = 0.2 % 706-2) GRAN MAT x10^3(ANC) 4.30 10*3/uL 1.88-7.09 (test code = 0143450748) IMM GRAN x10^3 (test <0.03 0-0.06 code = 9916996339) LYMPH x10^3 (test code 0.62 10*3/uL 1.32-3.29 L = 731-0) MONO x10^3 (test code 0.33 10*3/uL 0.33-0.92 = 742-7) EOS x10^3 (test code = 0.14 10*3/uL 0.03-0.39 711-2) BASO x10^3 (test code <0.03 0.01-0.07 = 704-7) Lab Interpretation Abnormal (test code = 20896-9) [facility] OR PERICO ZARATE - [id number] 09:27:00 Test Item Value Reference Range Interpretation Comments RPR (Qualitative) (test code = Nonreactive Nonreactive 47725-2) Lab Interpretation (test code = Normal 52882-7) [facility] CenterVITAMIN B12, [id number] 06:47:00 Test Item Value Reference Range Interpretation Comments VIT B12 (test code = 257 pg/mL 240-930 3122813130) KIM (test code = KIM) Biotin has been reported to cause a positive bias, interpret results relative to patient's use of biotin. Lab Interpretation (test Normal code = 79515-2) [facility] CenterFOLATE2020-10-19 06:46:00 Test Item Value Reference Range Interpretation Comments FOLATE SER (test code = 15.7 ng/mL 3-20 Biot in has been 4453203979) reported to cau se a positive bias, interpret resul ts relative to patient's use o f biotin. Lab Interpretation (test Normal code = 62461-1) [facility] CenterOSMOLALITY [id number] 05:47:00 Test Item Value Reference Range Interpretation Comments OSMOLALITY (test code = See_Comment [Au tomated message] 2282610313) The system [employer] generated this result transmitted ref erence range: 278 - 30 5 mOsm/kg. The re ference range was not u sed to interpret this result as normal/abnor mal. Lab Interpretation (test Normal code = 77991-7) [facility] CenterFERRITIN [id number] 01:01:00 Test Item Value Reference Range Interpretation Comments FERRITIN (test code = 234.0 ng/mL 11-264 8337179889) KIM (test code = KIM) Biotin has been reported to cause a negative bias, interpret results relative to patient's use of biotin. Lab Interpretation (test Normal code = 89331-3) [facility] CenterTHYROID STIMULATING [id number] 23:14:00 Test Item Value Reference Range Interpretation Comments TSH (test code = See_Comment Biotin has been 9819792313) reported to cau se a negative bias, interpret resul ts relative to pat ient's use of biotin. [Automated mess age] The system [employer] generated this result transmitted ref erence range: 0.45 - 4 .70 mIU/L. The refe rence range was not u sed to interpret this result as normal/abnor mal. Lab Interpretation (test Normal code = 94997-9) [facility] CenterIRON [id number] 22:39:00 Test Item Value Reference Range Interpretation Comments IRON (test code = 68 ug/dL 50-160 Slight hem olysis 4381170663) TIBC (test code = 271 ug/dL 250-410 6834878662) % FE SAT (test code = 25 % 20-50 8144578676) Lab Interpretation (test Normal code = 98896-1) [facility] CenterRETICULOCYTES [id number] 21:52:00 Test Item Value Reference Range Interpretation Comments RETIC Count Automated 2.17 % 0.51-1.9 H (test code = 8728278196) RETIC Absolute Count See_Comment [Autom ated message] (test code = 2551518513) The system which generated this result transmitted ref erence range: 0.0230 - 0.0950 10*6/?L. The reference range was not used to int erpret this result as normal/abnormal . IRF % (test code = 9.20 % 2.1-12.6 3806213141) RETIC-HE (test code = 35.1 pg 28.1-35.8 5221516264) Lab Interpretation (test Abnormal code = 29123-0) [facility] CenterABG+COOX+NA+K+GLU+CA2+2020-01-31 20:41:00 Test Item Value Reference Range Interpretation Comments PH (test code = 2) 7.35-7.45 L PCO2 (test code = See_Comment H [Automate d message] 8012249377) The system [employer] generated this result transmit gulshan reference range : 35 - 45 mmHg. The reference range was not used to interpret this result as normal/abnormal . PO2 (test code = See_Comment L [Automated message] 6315056389) The system [employer] generated this result transmit gulshan reference range : 80 - 100 mmHg. The reference range was not used to interpret this result as normal/abnormal . HCO3 (test code = See_Comment L [Automate d message] 5111428255) The system [employer] generated this result transmit gulshan reference range : 22 - 26 mEq/L. The reference range was not used to interpret this result as normal/abnormal . BE (test code = See_Comment L [Automated message] 6794470153) The system [employer] generated this result transmit gulshan reference range : -3.0 - 3.0 mEq/ L. The reference r luca was not used to interpret this result as normal/abnormal . THB (test code = 9.8 g/dL 12-16 L 2825176493) %O2HB (test code = 94.0 % 94-99 6598632366) %COHB ART (test code = 0.0 % 0-1.5 1608160603) %METHB ART (test code = 0.3 % 0.4-1.5 L 5537400047) VOL%O2 ART (test code = 13.0 % 15-23 L 1227254686) NA (test code = 137 mmol/L 135-145 6373930669) K+ (test code = 4.0 mmol/L 3.5-5 8011430962) AC CA IONZ (test code = 5.10 mg/dL 4.5-5.3 3541417584) GLUCOSE (test code = 100 mg/dL 70-110 8416057341) Lab Interpretation Abnormal (test code = 70315-1) [facility] CenterVALPROIC ACID, [id number] 19:51:00 Test Item Value Reference Range Interpretation Comments VALPROIC A (test code = <10 50-100 L 3607841873) KIM (test code = KIM) Toxic Range: ?Greater than 100 ug/mL Lab Interpretation (test Abnormal code = 28851-3) [facility] CenterACETAMINOPHEN2020-10-18 19:42:00 Test Item Value Reference Range Interpretation Comments ACETAMINOP (test code = <10.0 10-30 L 9792755200) KIM (test code = KIM) Toxic: Greater than 200 ug/mL @ 4 hour post ingestion or greater than 50 ug/mL @ 12 hour post ingestion Lab Interpretation (test Abnormal code = 85508-0) [facility] CenterLITHIUM2020-10-18 19:41:00 Test Item Value Reference Range Interpretation Comments [place] (test code = 1.4 mmol/L 0.6-1.2 H 2939571225) KIM (test code = KIM) Toxic Range: ? Greater than 1.2 mmol/L Lab Interpretation (test Abnormal code = 86930-7) [facility] CenterSALICYLATE2020-10-18 19:41:00 Test Item Value Reference Range Interpretation Comments SALICYLATE (test code <10 mg/L = 6883325278) KIM (test code = KIM) Therapeutic Range: ? Analgesic and Antipyretic Use ? 20-100 mg/L ? ? Anti-Inflammatory Use ? 100-250 mg/L Toxic Range: ? Greater than 300 mg/L [facility] CenterChes 1 [id number] 17:46:20Impression: No acute cardiopulmonary disease. RL: ?2601 AFC: ?[id number] Chest, one view History: ?AMS . Altered state of awareness Ordering Physician: ?KIRSTIN RON Findings: The lungs are clear without focal pneumonic consolidation,pleural effusion, or pneumothorax. ?The heart size is normal. ?Themediastinal contours are normal. ?No pulmonary edema. Several scatteredcalcified granulomas noted within both lungs. [facility], Radiant Results Inft User - 01/31/2020 12:47 PM CDTChest, one viewHistory: AMS . Altered state of awarenessOrdering Physician: KIRSTIN RON Findings: The lungs are clear without focal pneumonic consolidation,pleural effusion, or pneumothorax. The heart size is normal. Themediastinal contours are normal. No pulmonary edema. Several scatteredcalcified granulomas noted within both lungs.IMPRESSIONImpression: No acute cardiopulmonary disease. RL: 2601AFC: [id number] signed by Gatito Saul MD at 01/31/2020 12:46 PMSt[address] [facility] CenterAbdomen 1 [id number] 17:42:04 1. Nonobstructive intestinal bowel gas pattern. RL: ?2601 AFC: ?[id number] CLINICAL INFORMATION: Abdominal pain. Altered state of awareness Ordering Physician: ?KIRSTIN RON FINDINGS: Supine view of the abdomen was submitted on 3 separate images.Small amount of gas within the stomach. Bladder surgically absent. Gas andstool noted in the colon. No dilated loops of small bowel. [facility], Radiant Results Inft User - 01/31/2020 12:43 PM CDTCLINICAL INFORMATION: Abdominal pain. Altered state of awarenessOrdering Physician: KIRSTIN RON FINDINGS: Supine view of the abdomen was submitted on 3 separate images.Small amount of gas within the stoma ch. Bladder surgically absent. Gas andstool noted in the colon. No dilated loops of small bowel.IMPRESSION1. Nonobstructive intestinal bowel gas pattern.RL: 2601AFC: [id number] signed by Gatito Saul MD at 01/31/2020 12:[address] [facility] CenterETHANOL2020-10-18 17:40:00 Test Item Value Reference Range Interpretation Comments ALCOHOL (test code = <10 mg/dL 5766259219) KIM (test code = KIM) <10 Tkdvkojk39-961 Toxic>100 Depression of INTEGRATION ARCHITECT>[address] [facility] CenterCREATINE [id number] 17:38:00 Test Item Value Reference Range Interpretation Comments CK (test code = 6489210585) 46 U/L 33-194 Slight hemolysis Lab Interpretation (test code Normal = 87806-0) [facility] CenterCT Head W/O [id number] 17:05:24 Impression: 1. ?No acute intracranial process. [...] No acute intracranial process.2. Small right mastoid effusion.[facility] CenterADC / [facility] - DR[facility] [id number] 16:57:00 Test Item Value Reference Range Interpretation Comments BENZO U (test code = Presumptive Negative A 5252207953) Positive SLIM U (test code = Negative Negative 6674839002) AMPHET (test code = Negative Negative 1358959599) THC (test code = Negative Negative 7120221407) METHADONE (test code Negative Negative = 5983815101) Meth U (test code = Negative Negative 6319421087) OPIATES (test code = Negative Negative 2498146851) Cocaine Metabolite Negative Negative (test code = 2592740644) PROPOXY (test code = Negative Negative 4230678278) Tric U (test code = Presumptive Negative A Confirma tion of 4495718015) Positive Presumptive Positive TCA result requires physician order and this will b e sent to referen ce lab. PCP (test code = Negative Negative 4218521514) OXYCOD (test code = Negative Negative 1096472515) KIM (test code = Urine Drug Cutoff [...] testing). Lab Interpretation Abnormal (test code = 47977-9) [facility] CenterUrinalysis2020-10-18 16:54:00 Test Item Value Reference Range Interpretation Comments APPEARANCE (test code = Hazy Clear A 3643567337) COLOR (test code = Lisa Yellow A 9875665733) PH (test code = 4.8-8.0 9013698636) SP GRAVITY (test code = 1.003-1.030 8313888564) GLU U QUAL (test code = Normal Normal 5222426764) BLOOD (test code = Negative Negative 9035666537) KETONES (test code = Negative Negative 4944023105) PROTEIN (test code = 30 mg/dL Negative A 2887-8) UROBILIN (test code = 4.0 mg/dL Normal A 9032421509) BILIRUBIN (test code = Negative Negative 2181737126) NITRITE (test code = Negative Negative 5148060968) LEUK NICHOLE (test code = 25/uL Negative A 6701305362) RBC/HPF (test code = See_Comment [Autom ated message] 4115837620) The system [employer] generated this result transmit gulshan reference range : 0 - 3 HPF. The refe rence range was not u sed to interpret th is result as normal/abnormal . WBC/HPF (test code = See_Comment H [Autom ated message] 2066351174) The system [employer] generated this result transmit gulshan reference range : 0 - 5 HPF. The refe rence range was not u sed to interpret th is result as normal/abnormal . BACTERIA (test code = Few Negative A 4720977383) MUCOUS (test code = Moderate Negative LPF A 6866495613) SQ EPITH (test code = HPF 1687075090) HYAL CAST (test code = See_Comment H [Aut omated message] 0840684058) The system [employer] generated this result transmit gulshan reference range : <=2 LPF. The refere nce range was not u sed to interpret th is result as normal/abnormal . GRAN CASTS (test code = See_Comment H [Au tomated message] 0876629264) The system [employer] generated this result transmit gulshan reference range : <=1 LPF. The refere nce range was not u sed to interpret th is result as normal/abnormal . Lab Interpretation (test Abnormal code = 76148-4) [facility] CenterCOVID-19 (ID NOW RAPID TESTING)2020-01-31 16:39:00 Test Item Value Reference Range Interpretation Comments SARS-CoV-2 Rapid ID NOW Not Detected Not Detected (test code = 76784-9) KIM (test code = KIM) ID NOW COVID-19 Assay is an isothermal nucleic acid amplification test intended for the qualitative detection of nucleic acid from SARS-CoV-2 viral RNA in nasopharyngeal (STRUCTURAL FITTER) specimens. It is used under Emergency Use [...] indicated. Lab Interpretation Normal (test code = 84341-8) [facility] CenterRajivtrousdale medical centerdana [id number] 16:38:00 Test Item Value Reference Range Interpretation Comments TROPONIN I (test <0.012 See_Comment [Automated code = 4578388250) message] The system which generated this result [...] ? Lab Interpretation Normal (test code = 55005-8) [facility] CenterN-TERMINAL [id number] 16:34:00 Test Item Value Reference Range Interpretation Comments NT-proBNP (test code 283 pg/mL See_Comment H [Autom ated = 8759787588) message] The system which generated this result transmitted reference range : <=125. The reference range was not used to interpret this result as normal/abnormal . KIM (test code = KIM) Biotin has been reported to cause a negative bias, interpret results relative to patient's use of biotin. Lab Interpretation Abnormal (test code = 77119-0) [facility] CenterBasi Metabolic Panel (NA, K, CL, CO2, GLUCOSE, BUN, CREATININE, CA)2020-01-31 16:26:00 Test Item Value Reference Range Interpretation Comments NA (test code = 134 mmol/L 135-145 L 9895254691) K (test code = 4.9 mmol/L 3.5-5 4294520203) CL (test code = 107 mmol/L 98-108 0000512290) CO2 TOTAL (test code = 19 mmol/L 23-31 L 4841920729) AGAP (test code = 2-16 5774137732) BUN (test code = 30 mg/dL 7-23 H 3235608617) GLUCOSE (test code = 106 mg/dL 70-110 1450719678) CREATININE (test code = 2.21 mg/dL 0.5-1.04 H 6195877106) CALCIUM (test code = 9.5 mg/dL 8.6-10.6 6603678747) eGFR Calculation mL/min/1.73m2 (Non-) (test code = 8379448092) eGFR Calculation mL/min/1.73m2 () (test code = 4167260834) KIM (test code = KIM) Association of [...] tests). Lab Interpretation Abnormal (test code = 42362-0) [facility] CenterHepatic Function Panel (ALB, T.PRO, BILI T, BU/BC, ALT, AST, ALK PHOS)2020-01-31 16:26:00 Test Item Value Reference Range Interpretation Comments TOTAL BILI (test code = 1727260205) 1.5 mg/dL 0.1-1.1 H BILI UNCON (test code = 8576633307) 0.4 mg/dL 0.1-1.1 BILI CONJ (test code = 6209849531) 0.0 mg/dL 0-0.3 T PROTEIN (test code = 7606041442) 8.0 g/dL 6.3-8.2 ALBUMIN (test code = 6849806223) 4.0 g/dL 3.5-5 ALK PHOS (test code = 2992864519) 714 U/L 34-122 H ALTv (test code = 1742-6) 352 U/L 5-35 H AST(SGOT) (test code = 3848309667) 256 U/L 13-40 H Lab Interpretation (test code = Abnormal 44413-0) [facility] CenterLipase [id number] 16:26:00 Test Item Value Reference Range Interpretation Comments LIPASE (test code = 8650344121) 410 U/L 0-220 H Lab Interpretation (test code = Abnormal 88693-6) [facility] CenterAMMONIA, [id number] 16:25:00 Test Item Value Reference Range Interpretation Comments AMMONIA (test code = 32 umol/L 9-33 Slight hemolysis 4170957374) Lab Interpretation (test Normal code = 73881-2) [facility] CenterCB with [id number] 16:13:00 Test Item Value Reference Range Interpretation [...] (test code = 51.4 fL 39-49.9 H 84217-9) RDW-CV (test code = 13.7 % 12-15.5 788-0) PLT (test code = See_Comment [Automated 777-3) message] The sy stem which generated this result transmitted reference range : 166 - 358 10*3/ ?L. The reference r luca was not used to interpret this result as normal/abnormal . MPV (test code = 10.3 fL 9.5-12.9 49672-0) NRBC/100 WBC (test See_Comment [Automat ed code = 2241292855) message] The system which generated this result transmitted reference range : 0.0 - 10.0 /100 WBCs. The refer ence range was not u sed to interpret th is result as normal/abnormal . NRBC x10^3 (test code <0.01 See_Comment [Auto mated = 3204860433) message] The s ystem which generated this result transmitted reference range : 10*3/?L. The reference range was not used to interpret this result as normal/abnormal . GRAN MAT (NEUT) % 77.1 % (test code = 770-8) IMM GRAN % (test code 0.40 % = 7191513813) LYMPH % (test code = 12.2 % 736-9) MONO % (test code = 5.7 % 5905-5) EOS % (test code = 4.3 % 713-8) BASO % (test code = 0.3 % 706-2) GRAN MAT x10^3(ANC) 5.97 10*3/uL 1.88-7.09 (test code = 1944195404) IMM GRAN x10^3 (test 0.03 10*3/uL 0-0.06 code = 7206591572) LYMPH x10^3 (test code 0.94 10*3/uL 1.32-3.29 L = 731-0) MONO x10^3 (test code 0.44 10*3/uL 0.33-0.92 = 742-7) EOS x10^3 (test code = 0.33 10*3/uL 0.03-0.39 711-2) BASO x10^3 (test code <0.03 0.01-0.07 = 704-7) Lab Interpretation Abnormal (test code = 50191-8) [facility] CenterLactic Acid Whole [id number] 16:03:00 Test Item Value Reference Range Interpretation Comments LACTIC ACID (test code = 1.03 mmol/L 0.3-2.6 7935566283) Lab Interpretation (test code = Normal 82261-6) [facility] CenterCT ABDOMEN PELVIS W [id number] 23:00:141. ?Mild circumferential urinary bladder wall thickening [...] the pancreatic duct, unchanged since February2019. Recommend MRI/MRCP.[facility] CenterColby [id number] 21:36:00 Test Item Value Reference Range Interpretation Comments TROPONIN I (test <0.012 See_Comment [Automated code = 4708634359) message] The system which generated this result [...] ? Lab Interpretation Normal (test code = 05570-7) [facility] CenterUrinalysis2020-09-04 21:30:00 Test Item Value Reference Range Interpretation Comments APPEARANCE (test code = Clear Clear 9212540136) COLOR (test code = Yellow Yellow 0563044720) PH (test code = 4.8-8.0 6515399775) SP GRAVITY (test code = 1.003-1.030 0854163168) GLU U QUAL (test code = Normal Normal 9536453198) BLOOD (test code = Negative Negative 4264193051) KETONES (test code = Negative Negative 8625072503) PROTEIN (test code = Negative Negative 2887-8) UROBILIN (test code = 4.0 mg/dL Normal A 7889776005) BILIRUBIN (test code = Negative Negative 7584139799) NITRITE (test code = Negative Negative 6361464100) LEUK NICHOLE (test code = Negative Negative 0340400146) RBC/HPF (test code = See_Comment [Autom ated message] 4398585700) The system [employer] generated this result transmit gulshan reference range : 0 - 3 HPF. The refe rence range was not u sed to interpret th is result as normal/abnormal . WBC/HPF (test code = See_Comment [Autom ated message] 6148846985) The system [employer] generated this result transmit gulshan reference range : 0 - 5 HPF. The refe rence range was not u sed to interpret th is result as normal/abnormal . BACTERIA (test code = Few Negative A 8317720911) MUCOUS (test code = Slight Negative LPF A 6563652641) SQ EPITH (test code = HPF 2233134561) HYAL CAST (test code = See_Comment [Aut omated message] 2454422157) The system [employer] generated this result transmit gulshan reference range : <=2 LPF. The refere nce range was not u sed to interpret th is result as normal/abnormal . Lab Interpretation (test Abnormal code = 50460-2) [facility] with [id number] 21:29:00 Test Item Value Reference Range Interpretation [...] (test code = 54.6 fL 39-49.9 H 81511-3) RDW-CV (test code = 14.9 % 12-15.5 788-0) PLT (test code = See_Comment L [Automated 777-3) message] The sy stem which generated this result transmitted reference range : 166 - 358 10*3/ ?L. The reference r luca was not used to interpret this result as normal/abnormal . MPV (test code = 9.5 fL 9.5-12.9 31470-7) IPF % (test code = 1.5 % 1.3-7.7 Platelet count 5171302757) measured by fluorescence method. NRBC/100 WBC (test See_Comment [Automat ed code = 6367498173) message] The system which generated this result transmitted reference range : 0.0 - 10.0 /100 WBCs. The refer ence range was not u sed to interpret th is result as normal/abnormal . NRBC x10^3 (test code <0.01 See_Comment [Auto mated = 9734812514) message] The s ystem which generated this result transmitted reference range : 10*3/?L. The reference range was not used to interpret this result as normal/abnormal . GRAN MAT (NEUT) % 64.0 % (test code = 770-8) IMM GRAN % (test code 1.00 % = 7806016921) LYMPH % (test code = 22.5 % 736-9) MONO % (test code = 11.0 % 5905-5) EOS % (test code = 1.0 % 713-8) BASO % (test code = 0.5 % 706-2) GRAN MAT x10^3(ANC) 2.61 10*3/uL 1.88-7.09 (test code = 4896044519) IMM GRAN x10^3 (test 0.04 10*3/uL 0-0.06 code = 5136916715) LYMPH x10^3 (test code 0.92 10*3/uL 1.32-3.29 L = 731-0) MONO x10^3 (test code 0.45 10*3/uL 0.33-0.92 = 742-7) EOS x10^3 (test code = 0.04 10*3/uL 0.03-0.39 711-2) BASO x10^3 (test code <0.03 0.01-0.07 = 704-7) Lab Interpretation Abnormal (test code = 63177-1) [facility] Metabolic Panel (NA, K, CL, CO2, GLUCOSE, BUN, CREATININE, CA)2019-12-18 21:25:00 Test Item Value Reference Range Interpretation Comments NA (test code = 138 mmol/L 135-145 4155833464) K (test code = 4.8 mmol/L 3.5-5 9364013106) CL (test code = 104 mmol/L 98-108 2564626413) CO2 TOTAL (test code = 27 mmol/L 23-31 5099144162) AGAP (test code = 2-16 6309214228) BUN (test code = 12 mg/dL 7-23 1982727665) GLUCOSE (test code = 101 mg/dL 70-110 7060528342) CREATININE (test code 0.70 mg/dL 0.5-1.04 = 8423931893) CALCIUM (test code = 9.3 mg/dL 8.6-10.6 3357439026) eGFR Calculation mL/min/1.73m2 (Non-) (test code = 9073424795) eGFR Calculation mL/min/1.73m2 () (test code = 4864584341) KIM (test code = KIM) Association of [...] or urine or abnormalities in imaging tests). [facility] CenterHepatic Function Panel (ALB, T.PRO, BILI T, BU/BC, ALT, AST, ALK PHOS)2019-12-18 21:25:00 Test Item Value Reference Range Interpretation Comments TOTAL BILI (test code = 4336958023) 1.0 mg/dL 0.1-1.1 BILI UNCON (test code = 4142366919) 0.6 mg/dL 0.1-1.1 BILI CONJ (test code = 1707765408) 0.0 mg/dL 0-0.3 T PROTEIN (test code = 7123069746) 7.8 g/dL 6.3-8.2 ALBUMIN (test code = 3767120195) 4.3 g/dL 3.5-5 ALK PHOS (test code = 5519441467) 580 U/L 34-122 H ALTv (test code = 1742-6) 199 U/L 5-35 H AST(SGOT) (test code = 1211843861) 215 U/L 13-40 H Lab Interpretation (test code = Abnormal 77083-8) [facility] CenterLipase [id number] 21:25:00 Test Item Value Reference Range Interpretation Comments LIPASE (test code = 3585501712) 267 U/L 0-220 H Lab Interpretation (test code = Abnormal 87622-0) [facility] CenterXR CHEST 1 VW [id number] 02:17:38 No findings suggestive of COVID-19 pneumonia. [...] reviewed this study and agree with the abovereport.[facility] CORONAVIRUS COVID-19 [id number] 02:11:00 Test Item Value Reference Range Interpretation Comments SARS-CoV-2 (test code = Not Detected Not Detected 67359-8) KIM (test code = KIM) ID NOW COVID-19 Assay is an isothermal nucleic acid amplification test intended for the qualitative detection of nucleic acid from SARS-CoV-2 viral RNA in nasopharyngeal (STRUCTURAL FITTER) specimens. It is used under Emergency Use [...] indicated. Lab Interpretation Normal (test code = 90600-5) [facility] CenterTROPONIN [id number] 01:42:00 Test Item Value Reference Range Interpretation Comments TROPONIN I (test <0.012 See_Comment [Automated code = 2852836290) message] The system which generated this result [...] ? Lab Interpretation Normal (test code = 61219-8) [facility] CenterCOMP. METABOLIC PANEL (15728)2019-08-22 01:30:00 Test Item Value Reference Range Interpretation Comments NA (test code = 142 mmol/L 135-145 3583620556) K (test code = 4.1 mmol/L 3.5-5 6502824972) CL (test code = 106 mmol/L 98-108 6478275021) CO2 TOTAL (test code = 28 mmol/L 23-31 8733950476) AGAP (test code = 2-16 5635525890) BUN (test code = 16 mg/dL 7-23 8317139740) GLUCOSE (test code = 141 mg/dL 70-110 H 6574306140) CREATININE (test code = 0.75 mg/dL 0.5-1.04 8691475849) TOTAL BILI (test code = 0.8 mg/dL 0.1-1.1 9361775462) CALCIUM (test code = 9.6 mg/dL 8.6-10.6 5505583397) T PROTEIN (test code = 7.8 g/dL 6.3-8.2 3724175265) ALBUMIN (test code = 4.1 g/dL 3.5-5 1094057951) ALK PHOS (test code = 664 U/L 34-122 H 6197728384) ALTv (test code = 82 U/L 5-35 H 1742-6) AST(SGOT) (test code = 111 U/L 13-40 H 7031020540) eGFR Calculation mL/min/1.73m2 (Non-) (test code = 8383521592) eGFR Calculation mL/min/1.73m2 () (test code = 1961690879) KIM (test code = KIM) Association of [...] tests). Lab Interpretation Abnormal (test code = 10374-5) [facility] CenterLIPASE, [id number] 01:30:00 Test Item Value Reference Range Interpretation Comments LIPASE (test code = 5773257362) 87 U/L 0-220 Lab Interpretation (test code = Normal 55659-7) [facility] CenteraPTT2020-05-09 01:29:00 Test Item Value Reference Range Interpretation Comments APTT Patient (test See_Comment [Automat ed code = 3173-2) message] The system which generated this result transmitted reference range : 23 - 38 Seconds . The reference range was not used to interpr et this result as normal/abnormal . KIM (test code = KIM) The [facility] patient population mean normal value for aPTT is 30 seconds. Lab Interpretation Normal (test code = 57370-2) [facility] CenterPROTHROMBIN TIME / [id number] 01:27:00 Test Item Value Reference Range Interpretation [...] tions. Lab Interpretation (test Normal code = 01950-5) [facility] CenterURINALYSIS2020-05-09 01:25:00 Test Item Value Reference Range Interpretation Comments APPEARANCE (test code = Hazy Clear A 5215443227) COLOR (test code = Lisa Yellow A 9196962272) PH (test code = 4.8-8.0 0637689739) SP GRAVITY (test code = 1.003-1.030 2426909706) GLU U QUAL (test code = Normal Normal 6422585242) BLOOD (test code = Negative Negative 9453873403) KETONES (test code = Negative Negative 9593317116) PROTEIN (test code = 30 mg/dL Negative A 2887-8) UROBILIN (test code = 4.0 mg/dL Normal A 1767247562) BILIRUBIN (test code = Negative Negative 5016317297) NITRITE (test code = Positive Negative A 2409347459) LEUK NICHOLE (test code = 500/uL Negative A 9679725123) RBC/HPF (test code = See_Comment H [Autom ated message] 1884314914) The system [employer] generated this result transmit gulshan reference range : 0 - 3 HPF. The refe rence range was not u sed to interpret th is result as normal/abnormal . WBC/HPF (test code = See_Comment H [Autom ated message] 0619401519) The system [employer] generated this result transmit gulshan reference range : 0 - 5 HPF. The refe rence range was not u sed to interpret th is result as normal/abnormal . BACTERIA (test code = Many Negative A 2202748305) MUCOUS (test code = Moderate Negative LPF A 0465890275) SQ EPITH (test code = HPF 4230181483) Lab Interpretation (test Abnormal code = 32079-4) [facility] WITH [id number] 01:18:00 Test Item Value Reference Range Interpretation [...] RDW-SD (test code = 44.3 fL 39-49.9 04134-4) RDW-CV (test code = 12.6 % 12-15.5 788-0) PLT (test code = See_Comment [Automated 777-3) message] The sy stem which generated this result transmitted reference range : 166 - 358 10*3/ ?L. The reference r luca was not used to interpret this result as normal/abnormal . MPV (test code = 9.1 fL 9.5-12.9 L 74542-1) NRBC/100 WBC (test See_Comment [Automat ed code = 5511666383) message] The system which generated this result transmitted reference range : 0.0 - 10.0 /100 WBCs. The refer ence range was not u sed to interpret th is result as normal/abnormal . NRBC x10^3 (test code <0.01 See_Comment [Auto mated = 8963987563) message] The s ystem which generated this result transmitted reference range : 10*3/?L. The reference range was not used to interpret this result as normal/abnormal . GRAN MAT (NEUT) % 71.0 % (test code = 770-8) IMM GRAN % (test code 1.70 % = 5340172572) LYMPH % (test code = 16.1 % 736-9) MONO % (test code = 9.8 % 5905-5) EOS % (test code = 1.1 % 713-8) BASO % (test code = 0.3 % 706-2) GRAN MAT x10^3(ANC) 2.47 10*3/uL 1.88-7.09 (test code = 6099883068) IMM GRAN x10^3 (test 0.06 10*3/uL 0-0.06 code = 0000240608) LYMPH x10^3 (test code 0.56 10*3/uL 1.32-3.29 L = 731-0) MONO x10^3 (test code 0.34 10*3/uL 0.33-0.92 = 742-7) EOS x10^3 (test code = 0.04 10*3/uL 0.03-0.39 711-2) BASO x10^3 (test code <0.03 0.01-0.07 = 704-7) Lab Interpretation Abnormal (test code = 33293-8) [facility] [id number] 23:39:00 Test Item Value Reference Range Interpretation Comments TROPONIN I (test 0.005 ng/mL See_Comment [Automated code = 2688766330) message] The system which generated this result [...] ? Lab Interpretation Normal (test code = 08571-3) [facility] CenterBaun[facility] (NA, K, CL, CO2, GLUCOSE, BUN, CREATININE, CA)2019-06-25 23:27:00 Test Item Value Reference Range Interpretation Comments NA (test code = 138 mmol/L 135-145 6509126790) K (test code = 4.3 mmol/L 3.5-5 3616732995) CL (test code = 103 mmol/L 98-108 4168719329) CO2 TOTAL (test code = 27 mmol/L -31 6757602116) AGAP (test code = 2-16 8689852853) BUN (test code = 16 mg/dL 7-23 6030642435) GLUCOSE (test code = 106 mg/dL 70-110 4647143244) CREATININE (test code 0.66 mg/dL 0.5-1.04 = 0881274726) CALCIUM (test code = 9.1 mg/dL 8.6-10.6 4593339875) eGFR Calculation mL/min/1.73m2 (Non-) (test code = 4820033140) eGFR Calculation mL/min/1.73m2 () (test code = 5796926114) KIM (test code = KIM) Association of [...] or urine or abnormalities in imaging tests). [facility] CenterLip[facility] [id number] 23:27:00 Test Item Value Reference Range Interpretation Comments LIPASE (test code = 7994354395) 55 U/L 0-220 Lab Interpretation (test code = Normal 38671-7) [facility] CenterHepatic Function Panel (ALB, T.PRO, BILI T, BU/BC, ALT, AST, ALK PHOS)2019-06-25 23:27:00 Test Item Value Reference Range Interpretation Comments TOTAL BILI (test code = 0162242276) 1.0 mg/dL 0.1-1.1 BILI UNCON (test code = 7911186233) 0.2 mg/dL 0.1-1.1 BILI CONJ (test code = 7402695624) 0.0 mg/dL 0-0.3 T PROTEIN (test code = 8680741422) 7.8 g/dL 6.3-8.2 ALBUMIN (test code = 5741390938) 4.3 g/dL 3.5-5 ALK PHOS (test code = 6167700687) 622 U/L 34-122 H ALTv (test code = 1742-6) 126 U/L 5-35 H AST(SGOT) (test code = 8611137223) 180 U/L 13-40 H Lab Interpretation (test code = Abnormal 07851-6) [facility] WITH [id number] 23:23:00 Test Item Value Reference Range Interpretation [...] (test code = 51.3 fL 39-49.9 H 33107-6) RDW-CV (test code = 14.9 % 12-15.5 788-0) PLT (test code = See_Comment [Automated 777-3) message] The sy stem which generated this result transmitted reference range : 166 - 358 10*3/ ?L. The reference r luca was not used to interpret this result as normal/abnormal . MPV (test code = 9.3 fL 9.5-12.9 L 51730-3) NRBC/100 WBC (test See_Comment [Automat ed code = 4731193525) message] The system which generated this result transmitted reference range : 0.0 - 10.0 /100 WBCs. The refer ence range was not u sed to interpret th is result as normal/abnormal . NRBC x10^3 (test code <0.01 See_Comment [Auto mated = 6943178325) message] The s ystem which generated this result transmitted reference range : 10*3/?L. The reference range was not used to interpret this result as normal/abnormal . GRAN MAT (NEUT) % 67.4 % (test code = 770-8) IMM GRAN % (test code 0.60 % = 7267984359) LYMPH % (test code = 20.6 % 736-9) MONO % (test code = 9.4 % 5905-5) EOS % (test code = 1.7 % 713-8) BASO % (test code = 0.3 % 706-2) GRAN MAT x10^3(ANC) 2.43 10*3/uL 1.88-7.09 (test code = 4560038601) IMM GRAN x10^3 (test <0.03 0-0.06 code = 8368919602) LYMPH x10^3 (test code 0.74 10*3/uL 1.32-3.29 L = 731-0) MONO x10^3 (test code 0.34 10*3/uL 0.33-0.92 = 742-7) EOS x10^3 (test code = 0.06 10*3/uL 0.03-0.39 711-2) BASO x10^3 (test code <0.03 0.01-0.07 = 704-7) Lab Interpretation Abnormal (test code = 72620-7) [facility] CenterURINALYSIS2020-03-12 22:51:00 Test Item Value Reference Range Interpretation Comments APPEARANCE (test code = Clear Clear 7462893673) COLOR (test code = Yellow Yellow 6503597030) PH (test code = 4.8-8.0 6802365390) SP GRAVITY (test code = 1.003-1.030 8370728323) GLU U QUAL (test code = Negative Negative 5442795271) BLOOD (test code = Negative Negative 4217882673) KETONES (test code = Negative Negative 6358441469) PROTEIN (test code = Negative Negative 2887-8) UROBILIN (test code = 1.0 mg/dL See_Comment [Auto mated message] 1473211238) The system [employer] generated this result transmit gulshan reference range : 0-1.0 mg/dL. Th e reference range was not used to interpret this result as normal/abnormal . BILIRUBIN (test code = Small Negative A 8368421246) NITRITE (test code = Negative Negative 1633759635) LEUK NICHOLE (test code = Negative Negative 8918004007) RBC/HPF (test code = See_Comment [Autom ated message] 7307396790) The system [employer] generated this result transmit gulshan reference range : 0 - 3 HPF. The refe rence range was not u sed to interpret th is result as normal/abnormal . WBC/HPF (test code = See_Comment [Autom ated message] 3951627909) The system [employer] generated this result transmit gulshan reference range : 0 - 5 HPF. The refe rence range was not u sed to interpret th is result as normal/abnormal . BACTERIA (test code = Negative Negative 8622515830) Ictotest (test code = Negative 6558144069) Lab Interpretation (test Abnormal code = 04918-5) [facility] CenterPregnancy Test, [id number] 22:10:00 Test Item Value Reference Range Interpretation Comments PREG SERUM (test code Negative = 4375384462) KIM (test code = KIM) Less than 10 IU/L. ?If low titer or ectopic is suspected, resubmit specimen in 48-[address] [facility] CenterCB WITH [id number] 22:10:00 Test Item Value Reference Range Interpretation [...] RDW-SD (test code = 49.4 fL 39-49.9 48523-8) RDW-CV (test code = 14.6 % 12-15.5 788-0) PLT (test code = See_Comment [Automated 777-3) message] The sy stem which generated this result transmitted reference range : 166 - 358 10*3/ ?L. The reference r luca was not used to interpret this result as normal/abnormal . MPV (test code = 9.1 fL 9.5-12.9 L 09697-0) NRBC/100 WBC (test See_Comment [Automat ed code = 1266090815) message] The system which generated this result transmitted reference range : 0.0 - 10.0 /100 WBCs. The refer ence range was not u sed to interpret th is result as normal/abnormal . NRBC x10^3 (test code <0.01 See_Comment [Auto mated = 4595402152) message] The s ystem which generated this result transmitted reference range : 10*3/?L. The reference range was not used to interpret this result as normal/abnormal . GRAN MAT (NEUT) % 48.3 % (test code = 770-8) IMM GRAN % (test code 0.30 % = 9330338172) LYMPH % (test code = 38.9 % 736-9) MONO % (test code = 9.8 % 5905-5) EOS % (test code = 2.4 % 713-8) BASO % (test code = 0.3 % 706-2) GRAN MAT x10^3(ANC) 1.78 10*3/uL 1.88-7.09 L (test code = 8737878464) IMM GRAN x10^3 (test <0.03 0-0.06 code = 2772454257) LYMPH x10^3 (test code 1.43 10*3/uL 1.32-3.29 = 731-0) MONO x10^3 (test code 0.36 10*3/uL 0.33-0.92 = 742-7) EOS x10^3 (test code = 0.09 10*3/uL 0.03-0.39 711-2) BASO x10^3 (test code <0.03 0.01-0.07 = 704-7) Lab Interpretation Abnormal (test code = 20351-1) [facility] CenterUrinalysis2020-03-06 20:58:00 Test Item Value Reference Range Interpretation Comments APPEARANCE (test code = Hazy Clear A 4218648977) COLOR (test code = Yellow Yellow 2114815015) PH (test code = 4.8-8.0 7032468622) SP GRAVITY (test code = 1.003-1.030 3406878219) GLU U QUAL (test code = Normal Normal 5103899658) BLOOD (test code = Negative Negative 0691696795) KETONES (test code = Negative Negative 5108442639) PROTEIN (test code = Negative Negative 2887-8) UROBILIN (test code = 4.0 mg/dL Normal A 5584722248) BILIRUBIN (test code = Negative Negative 8182399237) NITRITE (test code = Negative Negative 8759569684) LEUK NICHOLE (test code = Negative Negative 6249468300) RBC/HPF (test code = See_Comment [Autom ated message] 4988006737) The system [employer] generated this result transmit gulshan reference range : 0 - 3 HPF. The refe rence range was not u sed to interpret th is result as normal/abnormal . WBC/HPF (test code = See_Comment [Autom ated message] 8934813739) The system [employer] generated this result transmit gulshan reference range : 0 - 5 HPF. The refe rence range was not u sed to interpret th is result as normal/abnormal . BACTERIA (test code = Many Negative A 6578465420) MUCOUS (test code = Slight Negative LPF A 6175560608) SQ EPITH (test code = HPF 1815190599) HYAL CAST (test code = See_Comment [Aut omated message] 4678678215) The system [employer] generated this result transmit gulshan reference range : <=2 LPF. The refere nce range was not u sed to interpret th is result as normal/abnormal . Lab Interpretation (test Abnormal code = 56415-3) [facility] CenterBa[facility] (NA, K, CL, CO2, GLUCOSE, BUN, CREATININE, CA)2019-06-19 20:51:00 Test Item Value Reference Range Interpretation Comments NA (test code = 141 mmol/L 135-145 2732958311) K (test code = 4.5 mmol/L 3.5-5 1972008615) CL (test code = 107 mmol/L 98-108 7379658352) CO2 TOTAL (test code = 25 mmol/L 23-31 1036446253) AGAP (test code = 2-16 4847509724) BUN (test code = 16 mg/dL 7-23 2117261705) GLUCOSE (test code = 89 mg/dL 70-110 6649958343) CREATININE (test code 0.50 mg/dL 0.5-1.04 = 5597756670) CALCIUM (test code = 9.0 mg/dL 8.6-10.6 9756989204) eGFR Calculation mL/min/1.73m2 (Non-) (test code = 7933135616) eGFR Calculation mL/min/1.73m2 () (test code = 6952010385) KIM (test code = KIM) Association of [...] or urine or abnormalities in imaging tests). [facility] CenterHepatic Function Panel (ALB, T.PRO, BILI T, BU/BC, ALT, AST, ALK PHOS)2019-06-19 20:51:00 Test Item Value Reference Range Interpretation Comments TOTAL BILI (test code = 4574399135) 0.9 mg/dL 0.1-1.1 BILI UNCON (test code = 8313872777) 0.5 mg/dL 0.1-1.1 BILI CONJ (test code = 8026846354) 0.0 mg/dL 0-0.3 T PROTEIN (test code = 4634032724) 8.0 g/dL 6.3-8.2 ALBUMIN (test code = 8569194364) 4.3 g/dL 3.5-5 ALK PHOS (test code = 3750357866) 613 U/L 34-122 H ALTv (test code = 1742-6) 115 U/L 5-35 H AST(SGOT) (test code = 1393417702) 157 U/L 13-40 H Lab Interpretation (test code = Abnormal 65210-1) [facility] CenterLipase [id number] 20:51:00 Test Item Value Reference Range Interpretation Comments LIPASE (test code = 1293730758) 89 U/L 0-220 Lab Interpretation (test code = Normal 67139-5) [facility] CenterCT ABDOMEN PELVIS W [id number] 03:36:50 No acute intra-abdominal abnormality. Hepatosplenomegaly with [...] reviewed this study and agree withthe above report.[facility] CenterComplete Metabolic [id number] 01:38:00 Test Item Value Reference Range Interpretation Comments NA (test code = 141 mmol/L 135-145 4457278219) K (test code = 4.0 mmol/L 3.5-5 3722495514) CL (test code = 105 mmol/L 98-108 6753401597) CO2 TOTAL (test code = 24 mmol/L 23-31 9222051326) AGAP (test code = 2-16 7940625963) BUN (test code = 23 mg/dL 7-23 2907738774) GLUCOSE (test code = 110 mg/dL 70-110 5307431077) CREATININE (test code = 0.68 mg/dL 0.5-1.04 9453526834) TOTAL BILI (test code = 1.0 mg/dL 0.1-1.6 6886142278) CALCIUM (test code = 9.4 mg/dL 8.6-10.6 8601133146) T PROTEIN (test code = 8.1 g/dL 6.3-8.2 8782642988) ALBUMIN (test code = 4.7 g/dL 3.5-5 4338934991) ALK PHOS (test code = 575 U/L 34-122 H 7919026492) ALTv (test code = 112 U/L 5-35 H 1742-6) AST(SGOT) (test code = 112 U/L 13-40 H 7042451917) eGFR Calculation mL/min/1.73m2 (Non-) (test code = 5252478153) eGFR Calculation mL/min/1.73m2 () (test code = 0778539445) KIM (test code = KIM) Association of [...] tests). Lab Interpretation Abnormal (test code = 71151-4) [facility] CenterLipase, [id number] 01:38:00 Test Item Value Reference Range Interpretation Comments LIPASE (test code = 4747034776) 65 U/L 0-220 Lab Interpretation (test code = Normal 57222-5) [facility] CenterUrinalysis2020-02-05 01:30:00 Test Item Value Reference Range Interpretation Comments APPEARANCE (test code = Clear Clear 0146463480) COLOR (test code = Lisa Yellow A 5938719861) PH (test code = 4.8-8.0 1824429217) SP GRAVITY (test code = 1.003-1.030 9178433933) GLU U QUAL (test code = Normal Normal 7301605365) BLOOD (test code = Negative Negative 3011709014) KETONES (test code = Negative Negative 7553553317) PROTEIN (test code = Negative Negative 2887-8) UROBILIN (test code = 2.0 mg/dL Normal A 7864842247) BILIRUBIN (test code = Negative Negative 0473889714) NITRITE (test code = Negative Negative 2940951832) LEUK NICHOLE (test code = Negative Negative 9333947233) RBC/HPF (test code = See_Comment H [Autom ated message] 0188248727) The system [employer] generated this result transmit gulshan reference range : 0 - 3 HPF. The refe rence range was not u sed to interpret th is result as normal/abnormal . WBC/HPF (test code = See_Comment [Autom ated message] 6205401885) The system [employer] generated this result transmit gulshan reference range : 0 - 5 HPF. The refe rence range was not u sed to interpret th is result as normal/abnormal . BACTERIA (test code = Few Negative A 2047911925) MUCOUS (test code = Slight Negative LPF A 0239909941) SQ EPITH (test code = HPF 1000950163) Lab Interpretation (test Abnormal code = 36776-9) [facility] CenterCBC WITH [id number] 01:24:00 Test Item Value Reference Range Interpretation [...] RDW-SD (test code = 49.0 fL 39-49.9 12358-0) RDW-CV (test code = 14.3 % 12-15.5 788-0) PLT (test code = See_Comment [Automated 777-3) message] The sy stem which generated this result transmitted reference range : 166 - 358 10*3/ ?L. The reference r luca was not used to interpret this result as normal/abnormal . MPV (test code = 10.2 fL 9.5-12.9 82484-2) NRBC/100 WBC (test See_Comment [Automat ed code = 8910724520) message] The system which generated this result transmitted reference range : 0.0 - 10.0 /100 WBCs. The refer ence range was not u sed to interpret th is result as normal/abnormal . NRBC x10^3 (test code <0.01 See_Comment [Auto mated = 4690301625) message] The s ystem which generated this result transmitted reference range : 10*3/?L. The reference range was not used to interpret this result as normal/abnormal . GRAN MAT (NEUT) % 65.5 % (test code = 770-8) IMM GRAN % (test code 0.50 % = 2168844040) LYMPH % (test code = 24.7 % 736-9) MONO % (test code = 8.6 % 5905-5) EOS % (test code = 0.5 % 713-8) BASO % (test code = 0.2 % 706-2) GRAN MAT x10^3(ANC) 4.37 10*3/uL 1.88-7.09 (test code = 5668969990) IMM GRAN x10^3 (test 0.03 10*3/uL 0-0.06 code = 2851119523) LYMPH x10^3 (test code 1.64 10*3/uL 1.32-3.29 = 731-0) MONO x10^3 (test code 0.57 10*3/uL 0.33-0.92 = 742-7) EOS x10^3 (test code = 0.03 10*3/uL 0.03-0.39 711-2) BASO x10^3 (test code <0.03 0.01-0.07 = 704-7) Lab Interpretation Abnormal (test code = 16758-9) [facility] CenterCT ANKLE RIGHT WO [id number] 16:39:33 Distal tibial spiral fracture with entrance [...] is seen. The ankle mortise is anatomic. [facility], Radiant Results Inft User - 12/05/2018 11:41 [...] the anterolateral tibialplafond without tibial plafond articular incongruity.[facility] CenterXR TIBIA FIBULA 2 VW [id number] 20:06:10 Comminuted mildly displaced distal tibia fracture [...] to the tibialplafond.Nondisplaced proximal fibular shaft fracture. [facility] CenterXR FOOT 3+ VW [id number] 20:06:10 Comminuted mildly displaced distal tibia fracture [...] extending to the tibialplafond.Nondisplaced proximal fibular shaft fracture.[facility] CenterURINE [id number] 21:51:00 Test Item Value Reference Range Interpretation Comments URINE CULTURE (test 10,000 - 100,000 CFU/mL code = 630-4) mixed aerobic organisms - suggests endogenous microbial contamination [facility] CenterHELICOBACTER PYLORI AB, [id number] 14:31:00 Test Item Value Reference Range Interpretation Comments Helicobacter pylori IgG Negative Negative Antibody (test code = 4459414944) KIM (test code = KIM) Negative - No H. pylori IgG antibody detected.Positive - Indicates presence of detectable IgG antibodies. Does not distinguish between past or current infection, or between active infection and colonization.Invalid - A second sample should be sent. Lab Interpretation (test Normal code = 77618-9) [facility] CenterBasic Metabolic Panel (NA, K, CL, CO2, GLUCOSE, BUN, CREATININE, CA)2018-11-16 10:15:00 Test Item Value Reference Range Interpretation Comments NA (test code = 140 mmol/L 135-145 3626355777) K (test code = 3.9 mmol/L 3.5-5 5599183876) CL (test code = 105 mmol/L 98-108 2934119069) CO2 TOTAL (test code = 30 mmol/L 23-31 5421596600) AGAP (test code = 2-16 9611877966) BUN (test code = 16 mg/dL 7-23 0708364769) GLUCOSE (test code = 104 mg/dL 70-110 8685395909) CREATININE (test code 0.52 mg/dL 0.5-1.04 = 0987942491) CALCIUM (test code = 8.6 mg/dL 8.6-10.6 9259988550) eGFR Calculation mL/min/1.73m2 (Non-) (test code = 3222743522) eGFR Calculation mL/min/1.73m2 () (test code = 6511218596) KIM (test code = KIM) Association of [...] in imaging tests). [facility] WITH [id number] 09:47:00 Test Item Value Reference Range Interpretation [...] RDW-SD (test code = 47.8 fL 39-49.9 18163-7) RDW-CV (test code = 13.5 % 12-15.5 788-0) PLT (test code = See_Comment [Automated 777-3) message] The sy stem which generated this result transmitted reference range : 166 - 358 10*3/ ?L. The reference r luca was not used to interpret this result as normal/abnormal . MPV (test code = 9.9 fL 9.5-12.9 67870-3) NRBC/100 WBC (test See_Comment [Automat ed code = 2224683058) message] The system which generated this result transmitted reference range : 0.0 - 10.0 /100 WBCs. The refer ence range was not u sed to interpret th is result as normal/abnormal . NRBC x10^3 (test code <0.01 See_Comment [Auto mated = 0737182508) message] The s ystem which generated this result transmitted reference range : 10*3/?L. The reference range was not used to interpret this result as normal/abnormal . GRAN MAT (NEUT) % 56.8 % (test code = 770-8) IMM GRAN % (test code 0.40 % = 6503582699) LYMPH % (test code = 27.2 % 736-9) MONO % (test code = 9.1 % 5905-5) EOS % (test code = 5.8 % 713-8) BASO % (test code = 0.7 % 706-2) GRAN MAT x10^3(ANC) 2.55 10*3/uL 1.88-7.09 (test code = 2582782141) IMM GRAN x10^3 (test <0.03 0-0.06 code = 6104115902) LYMPH x10^3 (test code 1.22 10*3/uL 1.32-3.29 L = 731-0) MONO x10^3 (test code 0.41 10*3/uL 0.33-0.92 = 742-7) EOS x10^3 (test code = 0.26 10*3/uL 0.03-0.39 711-2) BASO x10^3 (test code 0.03 10*3/uL 0.01-0.07 = 704-7) Lab Interpretation Abnormal (test code = 68160-3) [facility] CenterGLYCOSYLATED HEMOGLOBIN (A1C)2018-11-16 04:33:00 Test Item [...] Indicated Lab Interpretation Normal (test code = 96500-3) [facility] CenterHCV [id number] 02:23:00 Test Item Value Reference Range Interpretation Comments HCV Semi-Quantitative (test code = 34908-9) [facility]HE[facility] SURFACE [id number] 02:23:00 Test Item Value Reference Range Interpretation Comments HBsAB (test code = Negative 7125814555) HBsAb mIU/mL Semi-Quantitative (test code = 0890272253) KIM (test code = Interpretation:?Hepatitis KIM) B Surface Antibody? ? Negative - Patient is considered to be not immune to infection with HBV.? Positive - Anti-HBs detected at greater than or equal to 12 mIU/mL.?Patient is considered to be immune to infection with HBV.? [facility] A VIRUS ANTIBODY [id number] 02:11:00 Test Item Value Reference Range Interpretation Comments HAVM Semi-Quantitative (test code = 37529-3) KIM (test code = HAVAb IgM Interpretative KIM) Information:Reactive greater than or equal to 1.2Biotin has been reported to cause a negative bias, interpret results relative to patient's use of biotin. [facility] B CORE ANTIBODY [id number] 02:11:00 Test Item Value Reference Range Interpretation Comments HBCM Semi-Quantitative (test code = 41476-3) KIM (test code = Biotin has been reported KIM) to cause a negative bias, interpret results relative to patient's use of biotin. [facility] CenterABORH [id number] 00:49:22 Test Item Value Reference Range Interpretation Comments ABO & RH (test code O Positive Performe d at [facility] = 20) [facility] [place] [address]Ghzz Free: [phone] A No. [id number] [facility] CenterUrinalysis2019-08-04 00:29:00 Test Item Value Reference Range Interpretation Comments APPEARANCE (test code = Clear Clear 0793442280) COLOR (test code = Yellow Yellow 0138334904) PH (test code = 4.8-8.0 2220398156) SP GRAVITY (test code = 1.003-1.030 H 5000249043) GLU U QUAL (test code = Normal Normal 3786029734) BLOOD (test code = Negative Negative 5476644497) KETONES (test code = Negative Negative 7582905916) PROTEIN (test code = Negative Negative 2887-8) UROBILIN (test code = 4.0 mg/dL Normal A 5883892792) BILIRUBIN (test code = Negative Negative 1271523047) NITRITE (test code = Negative Negative 6328969511) LEUK NICHOLE (test code = Negative Negative 6766824791) RBC/HPF (test code = See_Comment H [Autom ated message] 3046859981) The system [employer] generated this result transmit gulshan reference range : 0 - 3 HPF. The refe rence range was not u sed to interpret th is result as normal/abnormal . WBC/HPF (test code = See_Comment [Autom ated message] 7401120388) The system [employer] generated this result transmit gulshan reference range : 0 - 5 HPF. The refe rence range was not u sed to interpret th is result as normal/abnormal . BACTERIA (test code = Negative Negative 8946260838) SQ EPITH (test code = See_Comment [Auto mated message] 5013854593) The system [employer] generated this result transmit gulshan reference range : <=2 HPF. The refere nce range was not u sed to interpret th is result as normal/abnormal . Lab Interpretation (test Abnormal code = 55282-4) [facility] CenterType and Screen - ONCE [id number] 00:15:31 Test Item Value Reference Range Interpretation Comments ABO & RH (test code O POSITIVE Performe d at [facility] = 20) [facility] [address] [facility] [place] [address]Ietq Free: [phone] A No. [id number] IAT (test code = Negative Performed a t [facility] 1185) [facility] [address] [facility] [place] [address]Vuzl Free: [phone] A No. [id number] [facility] CenterTROPONIN [id number] 00:04:00 Test Item Value Reference Range Interpretation Comments TROPONIN I (test 0.002 ng/mL See_Comment [Automated code = 9228534108) message] The system which generated this result [...] ? Lab Interpretation Normal (test code = 96659-5) [facility] CenterLIPID PANEL (63372)(TOTAL CHOLESTEROL, TRIGLYCERIDES, HDL)2018-11-15 23:58:00 Test Item Value Reference Range Interpretation Comments CHOL (test code = 289 mg/dL 120-200 H 7089245408) HDL (test code = 97 mg/dL >50 5235974761) HDLC RATIO (test code = See_Comment [Au tomated message] 6613755094) The system [employer] generated this result transmit gulshan reference range : <=4.5. The refe rence range was not u sed to interpret th is result as normal/abnormal . TRIG (test code = 52 mg/dL 30-170 0186446909) LDL CHOL (test code = 182 mg/dL See_Comment H [Auto mated message] 78493-0) The system [employer] generated this result transmit gulshan reference range : <=160. The refe rence range was not u sed to interpret th is result as normal/abnormal . VLDL (test code = 10 mg/dL 5-60 2673487542) Lab Interpretation (test Abnormal code = 56546-8) [facility] CenterCT ABDOMEN PELVIS W [id number] 17:09:23 1.?No acute intra-abdominal or pelvic abnormality. [...] No acute intra-abdominal or pelvic abnormality.2. Splenomegaly, unchanged.[facility] CenterACETAMINOPHEN 2018-11-15 16:52:00 Test Item Value Reference Range Interpretation Comments ACETAMINOP (test code = <10.0 10-30 L 7761086202) KIM (test code = KIM) Toxic: Greater than 200 ug/mL @ 4 hour post ingestion or greater than 50 ug/mL @ 12 hour post ingestion Lab Interpretation (test Abnormal code = 68580-9) [facility] 1 [id number] 15:23:59 1.?No acute cardiopulmonary abnormality.* * * [...] osseous abnormality is seen.IMPRESSION1. No acute cardiopulmonary abnormality.[facility] [id number] 15:19:00 Test Item Value Reference Range Interpretation Comments TROPONIN I (test 0.014 ng/mL See_Comment [Automated code = 4642087875) message] The system which generated this result [...] ? Lab Interpretation Normal (test code = 47294-8) [facility]N-TERMINAL OSK-VYQ3700-54-03 15:16:00 Test Item Value Reference Range Interpretation Comments NT-proBNP (test code 29 pg/mL See_Comment [Autom ated = 5797045335) message] The system which generated this result transmitted reference range : <=125. The reference range was not used to interpret this result as normal/abnormal . KIM (test code = KIM) Biotin has been reported to cause a negative bias, interpret results relative to patient's use of biotin. Lab Interpretation Normal (test code = 03366-6) [facility] Metabolic Panel (NA, K, CL, CO2, GLUCOSE, BUN, CREATININE, CA)2018-11-15 15:07:00 Test Item Value Reference Range Interpretation Comments NA (test code = 142 mmol/L 135-145 0881419960) K (test code = 5.1 mmol/L 3.5-5 H 6806370837) CL (test code = 107 mmol/L 98-108 1536956288) CO2 TOTAL (test code = 26 mmol/L 23-31 6770802471) AGAP (test code = 2-16 6317427434) BUN (test code = 22 mg/dL 7-23 0162363882) GLUCOSE (test code = 93 mg/dL 70-110 9010296372) CREATININE (test code = 0.47 mg/dL 0.5-1.04 L 8084533314) CALCIUM (test code = 8.9 mg/dL 8.6-10.6 6512310123) eGFR Calculation mL/min/1.73m2 (Non-) (test code = 8200960544) eGFR Calculation mL/min/1.73m2 () (test code = 9533604194) KIM (test code = KIM) Association of [...] tests). Lab Interpretation Abnormal (test code = 19569-2) [facility] (ALB, T.PRO, BILI T, BU/BC, ALT, AST, ALK PHOS)2018-11-15 15:07:00 Test Item Value Reference Range Interpretation Comments TOTAL BILI (test code = 2245764520) 1.1 mg/dL 0.1-1.1 BILI UNCON (test code = 5217733533) 0.4 mg/dL 0.1-1.1 BILI CONJ (test code = 8850686253) 0.0 mg/dL 0-0.3 T PROTEIN (test code = 5275791849) 8.2 g/dL 6.3-8.2 ALBUMIN (test code = 7684182650) 4.2 g/dL 3.5-5 ALK PHOS (test code = 9013403263) 723 U/L 34-122 H ALT(SGPT) (test code = 6615862691) 196 U/L 9-51 H AST(SGOT) (test code = 8392796609) 194 U/L 13-40 H Lab Interpretation (test code = Abnormal 08759-3) [facility] CenterLipase Oeoer7537-93-83 15:07:00 Test Item Value Reference Range Interpretation Comments LIPASE (test code = 2226823593) 185 U/L 0-220 Lab Interpretation (test code = Normal 57930-3) [facility] CenteraPTT2019-08-03 14:58:00 Test Item Value Reference Range Interpretation Comments APTT Patient (test See_Comment [Automat ed code = 3173-2) message] The system which generated this result transmitted reference range : 23 - 38 Seconds . The reference range was not used to interpr et this result as normal/abnormal . KIM (test code = KIM) The [facility] patient population mean normal value for aPTT is 30 seconds. Lab Interpretation Normal (test code = 63906-1) [facility] CenterProthrombin Time (PT) / [id number] 14:55:00 Test Item Value Reference Range Interpretation [...] tions. Lab Interpretation (test Normal code = 30236-1) [facility] CenterCBC WITH CZNDNQKLEBLT1822-60-49 14:47:00 Test Item Value Reference Range Interpretation [...] RDW-SD (test code = 47.1 fL 39-49.9 26685-4) RDW-CV (test code = 13.4 % 12-15.5 788-0) PLT (test code = See_Comment [Automated 777-3) message] The sy stem which generated this result transmitted reference range : 166 - 358 10*3/ ?L. The reference r luca was not used to interpret this result as normal/abnormal . MPV (test code = 10.0 fL 9.5-12.9 99009-9) NRBC/100 WBC (test See_Comment [Automat ed code = 1595948927) message] The system which generated this result transmitted reference range : 0.0 - 10.0 /100 WBCs. The refer ence range was not u sed to interpret th is result as normal/abnormal . NRBC x10^3 (test code <0.01 See_Comment [Auto mated = 9032590088) message] The s ystem which generated this result transmitted reference range : 10*3/?L. The reference range was not used to interpret this result as normal/abnormal . GRAN MAT (NEUT) % 54.5 % (test code = 770-8) IMM GRAN % (test code 0.40 % = 6074922398) LYMPH % (test code = 26.5 % 736-9) MONO % (test code = 10.5 % 5905-5) EOS % (test code = 7.4 % 713-8) BASO % (test code = 0.7 % 706-2) GRAN MAT x10^3(ANC) 2.43 10*3/uL 1.88-7.09 (test code = 8890792399) IMM GRAN x10^3 (test <0.03 0-0.06 code = 1642636922) LYMPH x10^3 (test code 1.18 10*3/uL 1.32-3.29 L = 731-0) MONO x10^3 (test code 0.47 10*3/uL 0.33-0.92 = 742-7) EOS x10^3 (test code = 0.33 10*3/uL 0.03-0.39 711-2) BASO x10^3 (test code 0.03 10*3/uL 0.01-0.07 = 704-7) Lab Interpretation Abnormal (test code = 86676-5) [facility], Gsfeo3723-90-31 15:57:00 Test Item Value Reference Range Interpretation Comments Culture, Urine (test NF code = URC) Culture, Urine (test 10 NSF code = URC1) * This is an EDITED result. * A prior r esult that was reported as final has been changed. Zeoubukfas0643-34-26 22:53:00 Test Item Value Reference Range Interpretation [...] = UACAST) CAST LPF Urine Source: Urine Bwworg79839 SURGICAL PATHOLOGY, LEVEL [id number] 14:31:[address] [address] Laboratory Printed: 07/09/[address] [place] [address] DAEMPathology Page: 1 Patient: YESSENIA ALEMAN Birthdate: 1960 Age/Sex: 56/F Spec#: [id number]: HERMES SALAZAR Specimen Date: 07/08/17 [...] portaltracts (highlighted with PAS/AB special stain performed withgood external control). Portaltracts have nonsuppurative duct damage, with distorted ducts surrounded and infiltrated bysmall mature lymphocytes. The portal tracts also have inflammatory infiltration composed ofepithelioid histiocytes, plasma cells, and few neutrophils. Pathologist:Kelvin Conway Enteredby:07/09/17 - 143August PROCEDURES: 42106, 01162/4 Patient: YESSENIA ALEAMN Re07/03/17Loc: T4-A MR#: [id number] CONTINUED ON NEXT PAGE Dis: 07/09/17ta: DIS IN [address] [address] Laboratory Printed: 07/09/[address] [place] [address] DAEMPathology Page: 2 Patient: YESSENIA ALEMAN [id number] (Continued) GROSS DESCRIPTION A. LIVER BIOPSY LEFT [...] DANII SHAHID Entered by: 07/08/17 - 1316 LAB.Y MICROSCOPIC DESCRIPTION Amicroscopic examination was performed to arrive at the diagnostic conclusion reported. Signed (Electronically Signed) Kelvin 07/09/17 Patient: YESSENIA ALEMAN Re07/03/17Loc: T4-A MR#: [id number] END OF REPORT Dis: 07/09/17ta: DIS GRVbsqqulbu6916-91-74 05:13:00 Test Item Value Reference Range Interpretation [...] U/L 8-55 H = ALT) Reference Lab Bzpygle7160-18-63 04:14:00 Test Item Value Reference Range Interpretation Comments Reference Lab 10 U/mL 0-35 Laurent ECLIA Testing (test code methodolo gyPerformed at: HD = CA199) - [facility] [address] [place], [place] [id number] Di aimee: Chico Suero MD, Phone : [phone] Reference Lab Chnhldz0790-15-10 16:14:00 Test Item Value Reference Range Interpretation Comments Reference Lab Testing 128.5 Units 0.0-20.0 H Negat kourtney 0.0 - 20.0 (test code = MARLON) Equivocal 20.1 - 24.9 Positive >24.9Mitochondr ial (M2) Antibodies are found in 90-96% ofpatients with primary biliary cirrhosis.Perfo rmed at: BN - [facility] alexandro [address] [id number] Director: Pj Rider MD, [facility] ne: [phone] Reference Lab Fmndpnm8072-80-39 16:14:00 Test Item Value Reference Range Interpretation [...] testing of p ositive sera with both VT-3 and MPO-ANCA enzyme immunoassays. A s many as 5% serumsamples are positive only b y EIA. Ref. AM J Clin Jzlyjk7718;111: 507-513. Reference Lab <1:20 titer Neg:<1:20 The atypical p ANCA pattern Testing (test has been obser chelita in code = ATANCA) asignificant percentage of patients with u lcerative colitis,primary sclerosing cholangitis and autoimmune hepatitis.Perfo rmed at: BN - [facility] [place], [place] [id number] Di aimee: Chester ramírez MD, Phone: [phone] Jsrlkqtur9249-83-17 05:12:00 Test Item Value Reference Range Interpretation [...] 8-55 H code = ALT) Reference Lab Wtqnjds2025-83-63 22:07:00 Test Item Value Reference Range Interpretation Comments Reference Lab Testing 785 IU/L 39-117 H (test code = ISOALKT) Reference Lab Testing 25 % 14-68 (test code = ISOALKBT) Reference Lab Testing 74 % 18-85 (test code = ISOALKLT) Reference Lab Testing 1 % 0-18 Perfor med at: HD - (test code = ISOALKIT) [facility] [address] [id number] Director: Chico Suero MD, Phone: [phone] [facility] at: [facility] [id number] Di aimee: Chester ramírez MD, Phone: [phone] Kqvfutbfv7753-76-98 11:48:00 Test Item Value Reference Range Interpretation [...] code = ALT) 92 U/L 8-55 H Zcxmuqdqx8345-97-00 06:08:00 Test Item Value Reference Range Interpretation [...] 8.5 mg/dL 7.8-10.44 N code = CA) Gyjpyqwtx0514-16-07 06:06:00 Test Item Value Reference Range Interpretation [...] code = ALT) 129 U/L 8-55 H Yyjvanlvds0593-99-73 05:57:00 Test Item Value Reference Range Interpretation [...] code = BASO#) 0.0 thou/uL 0.0-0.2 N Bzxoavhkdrt8040-27-16 05:55:00 Test Item Value Reference Range Interpretation [...] 3.0 - 4.0 CRITICAL: > 4.0 Anticoagulant? SGPXYzkjfblxi0855-43-90 05:36:00 Test Item Value Reference Range Interpretation [...] 8.9 mg/dL 7.8-10.44 N code = CA) Vkdpzudoe1628-10-37 05:33:00 Test Item Value Reference Range Interpretation [...] code = ALT) 160 U/L 8-55 H Zfgxjkabqj2742-30-42 05:28:00 Test Item Value Reference Range Interpretation [...] 0.1 thou/uL 0.0-0.2 N Chemistry - Elizabeth Qvwbvur3479-17-11 13:02:00 Test Item Value Reference Range Interpretation [...] Phadia AB Elizabeth Package Inserts - [facility] [place], [facility], [place]. Mbtqmfjpg7595-55-66 05:00:00 Test Item Value Reference Range Interpretation [...] code = ALT) 144 U/L 8-55 H Fewqexgin5324-88-90 04:50:00 Test Item Value Reference Range Interpretation [...] 8.4 mg/dL 7.8-10.44 N code = CA) Uwxzecacpw8912-40-54 04:39:00 Test Item Value Reference Range Interpretation [...] code = BASO#) 0.0 thou/uL 0.0-0.2 N Hxodzdjvn4003-00-90 17:07:00 Test Item Value Reference Range Interpretation Comments Chemistry (test code = IGG) 1032.00 mg/dL 552-1631 N Uwegbwlkk6806-00-39 17:07:00 Test Item Value Reference Range Interpretation Comments Chemistry (test code = IGM) 215.00 mg/dL 33-293 N Lnyydikvbn3745-73-23 00:50:00 Test Item Value Reference Range Interpretation [...] UABLD) Urine Source: Urine Clean CatchChemistry - Vemlbvze4177-00-62 00:25:00 Test Item Value Reference Range Interpretation Comments Chemistry - Specials (test Non-Reactive NonReactive code = THEPAIGM) Chemistry - Specials (test Non-Reactive S/CO NonReactive code = THBSAG) Chemistry - Specials (test Non-Reactive NonReactive code = INTHBCM) Chemistry - Specials (test Non-Reactive NonReactive code = INTHEPC) Ysalhxldd0674-70-79 22:12:00 Test Item Value Reference Range Interpretation [...] code 196 U/L 8-55 H = ALT) Etngaheta7959-18-55 22:12:00 Test Item Value Reference Range Interpretation Comments Chemistry (test code = LIP) 22 U/L 8-78 N Xkalzubbzu8880-97-56 21:50:00 Test Item Value Reference Range Interpretation [...] code = BASO#) 0.1 thou/uL 0.0-0.2 N Allmwyneh8711-95-73 22:49:00 Test Item Value Reference Range Interpretation [...] 78 U/L 8-55 H code = ALT) Ddjrcpvza1279-10-08 22:49:00 Test Item Value Reference Range Interpretation Comments Chemistry (test code = LIP) 12 U/L 8-78 N Hojveukalk4188-42-76 22:24:00 Test Item Value Reference Range Interpretation [...] code = BASO#) 0.0 thou/uL 0.0-0.2 N Bsqcayljjb6420-88-20 22:00:00 Test Item Value Reference Range Interpretation [...] UABLD) Negative Negative Urine Source: Urine Clean WfvtoTnqieynk0164-83-43 09:28:00 Test Item Value Reference Range Interpretation Comments Accuchek (test code = ACU) 99 mg/dL 70-110 N Kpzarqpfgy3336-56-89 09:14:00 Test Item Value Reference Range Interpretation [...] UABLD) Negative Negative Urine Source: Urine Clean BvywdBqpdnmpmwl1742-33-18 21:28:00 Test Item Value Reference Range Interpretation [...] UABLD) Negative Negative Urine Source: Urine Clean SwedxExgfgkiyc0012-82-64 21:09:00 Test Item Value Reference Range Interpretation [...] 95 U/L 8-55 H code = ALT) Mptdbcqep3791-26-33 21:09:00 Test Item Value Reference Range Interpretation Comments Chemistry (test code = LIP) 39 U/L 8-78 N Bxiucrdhbn3363-58-33 20:49:00 Test Item Value Reference Range Interpretation [...] code = BASO#) 0.0 thou/uL 0.0-0.2 N Kgblvwxvyt2118-55-52 21:34:00 Test Item Value Reference Range Interpretation [...] NotDetected (test code = PPX) Toxicology The [employer] file-V Panel (test code = for [...] held fortwo weeks. Urine Source: Urine Clean BfptbPuxmpoatdo1907-44-93 19:17:00 Test Item Value Reference Range Interpretation [...] = UABLD) Negative Negative Urine Source: Urine IrypvtXxkrnxfps9036-47-74 18:48:00 Test Item Value Reference Range Interpretation [...] code 84 U/L 8-55 H = ALT) Llhbrylxa8932-93-87 18:48:00 Test Item Value Reference Range Interpretation Comments Chemistry (test code = JORGE) 53.0 U/L 25-125 N Uajddgfid4124-67-75 18:48:00 Test Item Value Reference Range Interpretation Comments Chemistry (test code = LIP) 10 U/L 8-78 N Otetmwefse7912-90-52 18:19:00 Test Item Value Reference Range Interpretation [...] = BASO#) 0.1 thou/uL 0.0-0.2 N Culture, Iongr6041-26-44 10:22:00 Test Item Value Reference Range Interpretation Comments Culture, Urine (test code = URC) NF N Culture, Urine (test code = URC1) 10 MSF N Ugokehgtt8461-93-66 17:38:00 Test Item Value Reference Range Interpretation Comments Chemistry (test code = PHOS) 2.9 mg/dL 2.3-4.7 N Cjevsdloe7467-93-85 17:04:00 Test Item Value Reference Range Interpretation [...] H = ALT) Chemistry - BNP, HgbA1c, SZXb6057-51-98 17:04:00 Test Item Value Reference Range Interpretation Comments Chemistry - BNP, 4.9 % 4.0-6.0 N Therapeutic goals for glycemic HgbA1c, PTHi (test control ( ADA)Adults:- Goal of code = CFAE9FQ) therapy: Les s than 7.0% HbA1c- Action suggeste d: Greater than 8.0% CtE6xMajwb tric patients:- Toddlers and pr eschoolers: Less than 8.5% (but Greater than 7.5%)- Katelynn ool age (6-12 years): Less th an 8%- Adolescents and young adults (13-19 years): Less than 7.5%Diagnosing diabetes (ADA)- HbA1c: Greater than or equal to 6.5% Values of 5.7 - 6.4% indicate HIGH r isk for developing DiabetesInterna tional Expert Committee Repor t on the Role of the C6JBrrme in the Diagnosis of Di abetes. Diabetes Care 2009July;32(7): 1327-1334ADA, Diagnosis class ification of diabetes [facility].Diabetes Care 2010; 33 S uppl 1:S62 Kurktoten7268-22-54 16:59:00 Test Item Value Reference Range Interpretation Comments Chemistry (test code = CRP) 1.16 mg/dL = or < 0.5 H What test does the doctor want? C-REACTIVE PROTEIN (CRP)Mtculgmpae7952-49-57 16:53:00 Test Item Value Reference Range Interpretation [...] HPF None Seen Urine Source: Urine Clean QvawmVxapsxgwnl6671-59-89 16:46:00 Test Item Value Reference Range Interpretation [...] code = BASO#) 0.1 thou/uL 0.0-0.2 N Uanccefwby4001-68-71 21:59:00 Test Item Value Reference Range Interpretation [...] Urine Clean CatchSepsis - Lactic Acid >2 Ewpt3149-68-39 23:59:00 Test Item Value Reference Range Interpretation Comments Sepsis - Lactic Additional Lactate testin g will be Acid >2 Rflx performed in 3 hrs (test code = according to e WTXWS7A) SepsisProtocol. Jhhikajsg1557-92-40 21:12:00 Test Item Value Reference Range Interpretation Comments Chemistry (test code = JORGE) 59.0 U/L 25-125 N Ckuugrtdj7440-29-54 20:59:00 Test Item Value Reference Range Interpretation [...] 87 U/L 8-55 H code = ALT) Weuypvjzq8770-39-31 20:59:00 Test Item Value Reference Range Interpretation Comments Chemistry (test code = LIP) 32 U/L 8-78 N Chemistry - Wtlpnlm0151-31-99 20:59:00 Test Item Value Reference Range Interpretation Comments Chemistry - Lactate (test code = 2.1 mmol/L 0.5-2.2 N LACTSEP-T) Azlcswxiun2143-11-26 20:43:00 Test Item Value Reference Range Interpretation [...] = UABLD) Negative Negative Urine Source: Urine JjlhkyLpdxtvblec6354-11-15 20:37:00 Test Item Value Reference Range Interpretation [...] N Notes Date/Time Note Provider Source 2017-07-09 [facility] Name: ALEC ALEMAN [facility]IANELA DAMON [facility] [address] : 1960, Age: 56, Sex: JERONIMO Ortega [address] Unit #: [id number], Status: DIS IN [phone] Location: [address] Report [address] MARIANELA DAMON DO Admission Date: 07/03/17 Report #: [id number] Discharge Date: 07/09/17 CC: Bita Hatfield NP, [...] mg p.o. t.i.d. FOLLOWUP: The patient jitendra feliciano ollow up with her primary care provider, [...] Date/Time: 07/09/17 1139 Transcribed Date/Time: 07/09/17 1206 Service Member: FEDERICA 2017-07-08 [facility] Name: KHOA CLEMENTEYESSENIA Christopher STLSJH 20:38:00-00:00 [address] : 1960, Age: 56, Sex: JERONIMO Ortega [address] Unit #: [id number], Status: ADM [place] [phone] [facility]ict : Jose Luis Romero MD Admission Date: 07/03/17 Report #: [id number] Discharge Date: CC: Bita Hatfield NP, Christopher [...] I have talked to her gastrologist in [place] last Ed. He states she had stents [...] she will need to follow up with [facility] l radiologist in [place]. She has persistent right upper quadrant pain and consider replacing her s tents, although at this time, I do not see if that is necessary for the above noted regions. Reported By: Jose Luis Romero MD Electronically Signed Date/Time: 07/09/17 0751 Dictated Date/Time: 07/08/171826 Transcribed Date/Time: 07/08/171923 Service Member: MARTHA 2017-07-08 [facility] Name: NICKSON MARIANELA SINHA STLSJH 15:15:00-00:00 [address] : 1960, Age: 56, Sex: F JERONIMO Hoffmann [address] Unit #: [id number], Status: ADM IN [phone] Location: T4-A 4404-P Report Dict Dr.: MARINAELA DAMON DO Admission Date: 07/03/17 Report #: [id number] Discharge Date: CC: Hospitalist Progress Note - [...] daily, sa line lock IVF - Plan sr. social media & mobile manager, out of bed/ambulate, DVT proph w/SCDs Stable overall -: Continue supportive measures -: Saline lock IVF -: D/C Levaquin -: Await liver bx * AM lab: CMP * Likely home in am <Electronically signed by Marianela Damon DO> 1143 2017-07-07 [facility] Name: ALEC ALEMAN Luis Renee [facility] 20:12:00-00:[address] : 1960, Age: 56, Sex: JERONIMO Ortega [address] Unit #: [id number], Status: DIS IN [phone] Location: T4-A 4404-P Report Dict DrYoly: Luis Hodges MD Admission Date: 07/03/17 Report #: [id number] Discharge Date: 07/09/17 CC: Bita Hatfield NP, [...] been previously seen by an interventional in [facility] th repeated biliary stents and symptom relief with [...] 0905 Dictated Date/Time: 07/07/171907 Transcribed Date/Time: 07/07/172011 Service Member: OREN 2017-07-07 [facility] Name: ALEC ALEMAN MARIANELA DAMON [facility] 17:14:00-00:[address] : 1960, Age: 56, Sex: JERONIMO Ortega [address] Unit #: [id number], Status: ADM IN [phone] Location: [address] Report [address] MARIANELA DAMON DO Admission Date: 07/03/17 Report #: [id number] Discharge Date: CC: Hospitalist Progress Note - [...] Alkaline Phosphatase 1031 H 837 H Lipase 07/05/17 07/05/17 07/06/17 04:25 04:25 04:54 Hgb [...] Stable, continue Cozaar 100mg daily - Plan 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 <Electronically signed by Marianela Damon DO> 1737 2017-07-06 [facility] Name: ALEC ALEMAN Luis Hodges [facility] 17:31:00-00:00 [address] : 1960, Age: 56, Sex: JERONIMO Ortega [address] Unit #: [id number], Status: DIS IN [phone] Location: T4-A [facility]-P Report Dict Dr.: Luis Hodges MD Admission Date: 07/03/17 Report #: [id number] Discharge Date: 07/09/17 CC: Bita Hatfield NP, [...] seen by Dr. Ana María Penny in [place] with multiple ERCPs performed and multiple stents [...] be responding to administration of ursodiol f haylie wending towards a diagnosis of possible primary [...] Date/Time: 07/06/17 1650 Transcribed Date/Time: 07/06/17 1731 Service Member: OREN 2017-07-06 [facility] Name: ALEC ALEMAN Eh Cerda STLSJH 13:44:00-00:[address] : 1960, Age: 56, Sex: F JERONIMO Hoffmann [address] Unit #: [id number], Status: ADM IN [phone] Location: T4A [facility]- Report Dict Dr.: Eh Henderson MD Admission Date: 07/03/17 Report #: [id number] Discharge Date: CC: Hospitalist Progress Note - [...] of care to her ERCP specialist in [place]. (2) Abdominal pain Code(s): R10.9 - UNSPECIFIED [...] cont current plan of care, P T/OT, sr. social media & mobile manager, incentive spirometry, out of bed/ambulate, DVT proph [...] 08: 13 Medications: Current Medications Hydrocodone Bitart/Acetaminophen ([place] 5/325) 1 tab PO Q4H PRN PRN Reason: Moderate Pain (4-6) Last Admin: 07/06/17 01:28 Dose: 1 tab Diazepam (Valium) 5 mg PO BID [facility] Last Admin: 07/06/17 08:13 Dose: 5 mg Enoxaparin Sodium (Lovenox) 40 mg SC 0900 [facility] Stop: 07/07/17 11:00 Last Admin: 07/06/17 08:16 Dose: 40 mg Famotidine (Pepcid) 20 mg SLOW IVP Q12HR [facility] Last Admin: 07/06/17 09:46 Dose: 20 mg Levofloxacin 500 mg/ Device 100 mls @ 100 mls/hr IVPB Q24HR [facility] Last Admin: 07/05/17 15:30 Dose: 100 mls Sodium Chloride (Normal Saline 0.9%) 1,000 mls @ 125 mls/hr IV .Q8H [facility] Last Admin: 07/06/17 09:42 Dose: 1,000 mls Losartan Potassium (Cozaar) 100 mg PO DAILY [facility] Last Admin: 07/06/17 08:11 Dose: 100 mg Morphine Sulfate (Morphine) 4 mg SLOW IVP Q4H VT N PRN Reason: Pain Last Admin: 07/06/17 12:45 Dose: 4 mg Ondansetron HCl (Zofran) 4 mg IVP Q6H PRN PRN Reason: Nausea/Vomiting Last Admin: 07/06/17 08:13 Dose: 4 mg Ondansetron HCl (Zofran Odt) 4 mg PO Q6H PRN PRN Reason: Nausea/Vomiting Last Admin: 07/05/17 20:16 Dose: 4 mg Oxycodone/Acetaminophen (Percocet 5/325) 1 tab P O BID [facility] Last Admin: 07/06/17 09:45 Dose: 1 tab Buprenorphine [ (Butrans] 1 Patch) 0 each TOP Q7 D [facility] Promethazine HCl (Phenergan) 50 mg PO Q4H PRN PRN Reason: Nausea Last Admin: 07/06/17 01:27 Dose: 50 mg Quetiapine Fumarate (Seroquel Xr) 150 mg PO QPM [facility] Last Admin: 07/05/17 20:15 Dose: 150 mg Sodium Chloride (Flush - Normal Saline) 10 ml IV F Q12HR [facility] Last Admin: 07/06/17 08:17 Dose: 10 ml Sodium Chloride (Flush - Normal Saline) 10 ml IV F PRN PRN PRN Reason: Saline Flush Tizanidine HCl (Zanaflex) 4 mg PO BID [facility] Last Admin: 07/06/17 08:11 Dose: 4 mg Ursodiol (Actigal) 300 mg PO TID-WM [facility] Last Admin: 07/06/17 12:06 Dose: 300 mg <Electronically signed by Eh Hendesron MD> 07/06 1346 2017-07-06 [facility] Name: KHOA CLEMENTEJose Luis Bolton [facility] 00:31:00-00:00 [employer] : 1960, Age: 56, Sex: JERONIMO Ortega [address] Unit #: [id number], Status: ADM IN [phone] Location: [address] Report [address].: Jose Luis Romero MD Admission Date: 07/03/17 Report #: [id number] Discharge Date: CC: Bita Hatfield NP, Christopher [...] she was diagnosed with "biliary cirrhosis" [facility] Hospital on many years ago and had [...] consider transferring the patient back down to [place] to be seen by her ERCP speciali [...] Date/Time: 07/05/17 1411 Transcribed Date/Time: 07/05/17 1617 Service Member: OREN 2017-07-05 [facility] Name: YESSENIA BRODY Mariann Reeves ST[facility] 14:45:00-00:00 [address] : 1960, Age: 56, Sex: F JERONIMO Hoffmann [id number] Unit #: [id number], Status: DIS IN [phone] Location: [facility] Report Dict DrYoly: Mariann Reeves MD Admission Date: 07/03/17 Report #: [id number] Discharge Date: 07/09/17 CC: Hospitalist Progress Note [...] care, plan discussed w/ fam vincenzo, PT/OT, sr. social media & mobile manager Possible Liver biopsy on saturday per Gastrenterol ogy * . <Electronically signed by Mariann Reeves MD> 07/16/17 0407 2017-07-05 [facility] Name: KHOA CLEMENTEYESSENIA Jose Luis Jaramillo [facility] 08:59:00-00:[address] : 1960, Age: 56, Sex: JERONIMO Ortega [id number] Unit #: [id number], Status: ADM IN [phone] Location: [address] Report [address].: Jose Luis Romero MD Admission Date: 07/03/17 Report #: [id number] Discharge Date: CC: Bita Hatfield NP, Christopher [...] with her intervent ional gastrologist tomorrow in [place], Dr. Ana María Agustin, she will follow up with him next week . If she needs further biliary intervention that would be the best place for her as it seems sh kike has had some disorder requiring stents every 4 months. This probably would be on the scope for community Gastrology alexandro saeed. Reported By: Jose Luis Romero MD Electronically Signed Date/Time: 07/08/17 1205 Dictated Date/Time: 07/04/17 1727 Transcribed Date/Time: 07/04/17 1849 Service Member: MLJ 2017-07-04 [facility] Name: ALEC BRODYJose Luis Foley [facility] 11:24:00-00:00 [facility] [address] : 1960, Age: 56, Sex: JERONIMO Ortega [phone] Unit #: [id number], Status: ADM IN [phone] Location: [address] Attending Phys: Boogie Cox MD Discharge Date: Report #: [id number] Consulting Phys: Jose Luis Romero MD CC: [...] gastroenter ologist, Dr. Ana María Penny in [place] and had multiple biliary stents placed, at [...] bupropion patch every 7 days. PRESENT MEDICATIONS: [place], Valium, Lovenox, Pepcid, Cozaar, morphine, Zofran, Percocet, [...] her history of multiple [facility] [place] [facility]. At this time, she has no [...] records from her last individual gastrologist in [place] to see if we can obtain a diagnosis, which sh e has. Depending on findings on MRCP, she may or may not need an ERCP. We will also get markers PS C primary biliary cirrhosis and autoimmune liver disease. Reported By: Jose Luis Romero MD Electronically Signed Date/Time: 07/04/17 1433 Dictated Date/Time: 07/03/17 1544 Transcribed Date/Time: 07/03/17 1630 Service Member: YOLANDE 2017-07-04 [facility] Name: YESSENIA BRODY Mariann Reeves [facility] 08:50:00-00:00 [address] : 1960, Age: 56, Sex: F JERONIMO Hoffmann [id number] Unit #: [id number], Status: DIS IN [phone] Location: [address] Report [address].: Mariann Reeves MD Admission Date: 07/03/17 Report #: [id number] Discharge Date: 07/09/17 CC: Hospitalist Progress Note [...] by Mariann Reeves MD> 07/16/17 0407 2017-07-03 [facility] Name: ALEC ALEMAN Eh Cerda [facility] 14:43:00-00:[address] : 1960, Age: 56, [place]: [place] [phone] Unit #: [id number], Status: ADM IN [phone] Location: [address] [place] [address] Report Dict DrYoly: Eh Henderson MD Admission Date: 07/03/17 Report #: [id number] Discharge Date: CC: Bita Hatfield NP, Mohan MD Walker, Eric P MD HISTORY AND PHYSICAL REPORT DATE OF ADMISSION: 07/03/2017 CHIEF COMPLAINT: Abdominal pain. HISTORY OF PRESENT ILLNESS: This is a 56-year-old, morbidly obese, white female with a known past medical history of cholecyst ectomy and following which she was having persistent biliary cholestasis. She has recentl y moved from [place] to [place], [place], for her 's transfer, and she [...] time. Syste m reviewed are HEENT, CVS, INTEGRATION ARCHITECT, respiratory, GI, , musculoskeletal, skin and integument, [...] rash, no pal chance. CENTRAL NERVOUS SYSTEM: Autism Tutor nial examination II-XII intact. No focal deficits [...] Date/Time: 07/03/17 1414 Transcribed Date/Time: 07/03/17 1442 Service Member: PRADEEP
--- NOTE | 2022-10-25 15:33 | EDPHYS ---
Physician Documentation [facility] Name: Yessenia Aleman Age: 61 yrs Sex: Female : 1960 Arrival Date: 10/25/2022 Time: 14:31 Bed 18 Private MD: ED Physician Barbie Cruz HPI: 10/25 14:50 This 61 yrs old Female presents to ER via Ambulatory with complaints of Hand sd2 Pain - right hand middle finger possible bug bite with swelling. 14:50 61 yo F presents with CC of R middle finger/3rd digit with redness and swelling sd2 worsening for the past 2 days. Does not recall any significant trauma or bug bite. Reports ice and Ibuprofen initially helped yesterday but worsened today. Denies fever or vomiting but endorses a current panic/anxiety attack with palpitations and nausea. She is currently out of home anxiety medication. . Historical: - Allergies: 14:33 Codeine; ll1 - PMHx: 14:33 Anxiety; Arthritis; biliary chirrosis; biliary disease; Cirrhosis; Hypertension; ll1 Pancreatitis; - PSHx: 14:33 Appendectomy; Biliary stent removal; Biliary stents; Cholecystectomy; ll1 - Immunization history:: Adult Immunizations up to date. - Social history:: Smoking status: Patient denies any tobacco usage or history of. ROS: 14:50 Constitutional: Negative for fever, chills, and weight loss, Eyes: Negative for injury, sd2 pain, redness, and discharge, Cardiovascular: Negative for chest pain, palpitations, and edema, Respiratory: Negative for shortness of breath, cough, wheezing. MS/Extremity: Negative for injury and deformity, Skin: Positive for rash and discoloration. Negative for injury. Exam: 14:50 Constitutional: This is a well developed, well nourished patient who is awake, alert, sd2 and in no acute distress. Head/Face: Normocephalic, atraumatic. Eyes: EOMI, normal conjunctiva bilaterally Skin: Warm, dry with normal turgor. 3rd digit on right hand with erythema from the PIP joint down to the MCP with FROM intact, no pain on extension of the digit, edema of this area also noted with a darkened area to the distal aspect that could be consistent with an initial insult such as a bug bite MS/ Extremity: Pulses equal, no cyanosis. Neurovascular intact. Full, normal range of motion. Ambulatory without difficulty. Psych: Awake, alert, with orientation to person, place and time. Behavior, mood, and affect are within normal limits. Vital Signs: 14:34 BP 186 / 102; Pulse 87; Resp 17; Temp 97.9; Pulse Ox 100% ; Weight 63.05 kg; Height 5 ll1 ft. 0 in. ; Pain 8/10; 15:39 BP 176 / 98; ap3 14:34 Body Mass Index 27.15 (63.05 kg, 152.4 cm) ll1 14:34 Pain Scale: Adult ll1 MDM: 14:49 Patient medically screened. sd2 14:50 Differential diagnosis: cellulitis, doubt flexor tenosynovitis, insect bite among sd2 others. Data reviewed: vital signs, nurses notes. I considered the following discharge prescriptions or medication management in the emergency department Medications were administered in the Emergency Department. See MAR. Care significantly affected by the following Social Determinants of Health: Poor access to transportation. Counseling: I had a detailed discussion with the patient and/or guardian regarding: the historical points, exam findings, and any diagnostic results supporting the discharge/admit diagnosis, the need for outpatient follow up, to return to the emergency department if symptoms worsen or persist or if there are any questions or concerns that arise at home. 15:30 ED course: Ring on affected finger had to be cutoff at bedside without complication as sd2 unable to remove due to swelling. Will discharge home with oral antibiotics and outpatient follow up. Verbalizes understanding of discharge plan and strict return precautions. . Administered Medications: 15:07 Drug: LORazepam PO 1 mg Route: PO; ap3 15:43 Follow up: Response: No adverse reaction; Anxiety decreased ap3 15:07 Drug: HYDROcodone-acetaminophen PO 5 mg-325 mg 1 tabs Route: PO; ap3 15:43 Follow up: Response: No adverse reaction ap3 15:43 Follow up: Response: Pain is decreased ap3 15:07 Drug: Ondansetron PO 4 mg Route: PO; ap3 15:43 Follow up: Response: No adverse reaction ap3 15:07 Drug: Trimethoprim-Sulfamethoxazole PO (160 mg-800 mg (DS) 1 tablet Route: PO; ap3 15:43 Follow up: Response: No adverse reaction ap3 15:07 Drug: Cephalexin PO 500 mg Route: PO; ap3 15:43 Follow up: Response: No adverse reaction ap3 Disposition Summary: 10/25/22 15:32 Discharge Ordered Location: Home sd2 Problem: new sd2 Symptoms: have improved sd2 Condition: Stable sd2 Diagnosis - Right middle finger cellulitis sd2 - Panic attack sd2 Followup: sd2 - With: Private Physician - When: 2 - 3 days - Reason: Wound Recheck, Recheck today's complaints, Continuance of care, Re-evaluation by your physician Discharge Instructions: - Discharge Summary Sheet sd2 - Cellulitis, Adult sd2 - Managing Anxiety, Adult sd2 Forms: - Medication Reconciliation Form sd2 - Thank You Letter sd2 - Antibiotic Education sd2 - Prescription Opioid Use sd2 - Patient Portal Instructions sd2 Prescriptions: - Cephalexin 500 mg Oral Capsule - take 1 capsule by ORAL route every 6 hours for 10 days; 40 capsule; Refills: 0, sd2 Product Selection Permitted - Hydroxyzine HCl 25 mg Oral Tablet - take 1 tablet by ORAL route every 6 hours As needed; 15 tablet; Refills: 0, sd2 Product Selection Permitted - Bactrim DS 800-160 mg Oral Tablet - take 1 tablet by ORAL route every 12 hours for 10 days; 20 tablet; Refills: 0, sd2 Product Selection Permitted Signatures: Tosha Florence RN RN ap3 Cathryn Jordan RN RN ll1 Barbie Cruz MD MD sd2
--- NOTE | 2022-10-25 15:33 | ER ---
Nurse's Notes [facility] Name: Yessenia Aleman Age: 61 yrs Sex: Female : 1960 Arrival Date: 10/25/2022 Time: 14:31 Bed 18 Private MD: Diagnosis: Right middle finger cellulitis;Panic attack Presentation: 10/25 14:34 Chief complaint: Patient states: Awoke Saturday R middle finger was sore. Site red, ll1 swollen, hot radiating up finger and hand now. No known fever. + FRENCH, and anxiety. Coronavirus screen: Vaccine status: Patient reports receiving the 2nd dose of the covid vaccine. Client denies travel out of the [place] in the last 14 days. At this time, the client does not indicate any symptoms associated with coronavirus-19. Ebola Screen: Patient denies travel to an Ebola-affected area in the 21 days before illness onset. Initial Sepsis Screen: Does the patient meet any 2 criteria? No. Patient's initial sepsis screen is negative. Does the patient have a suspected source of infection? No. Patient's initial sepsis screen is negative. Risk Assessment: Do you want to hurt yourself or someone else? Patient reports no desire to harm self or others. Onset of symptoms was October 23, 2022. 14:34 Method Of Arrival: Ambulatory ll1 14:34 Acuity: HOLLI 3 ll1 Triage Assessment: 14:35 General: Appears uncomfortable, Behavior is cooperative, appropriate for age, anxious. ll1 Pain: Complains of pain in right hand Pain currently is 8 out of 10 on a pain scale. Quality of pain is described as aching, throbbing, Pain began 2-3 days ago. Derm: R hand 3rd digit pain, red, swollen, warm to touch Reports pain. Musculoskeletal: Circulation, motion, and sensation intact. Capillary refill < 3 seconds, need ring removed from that finger. Historical: - Allergies: 14:33 Codeine; ll1 - PMHx: 14:33 Anxiety; Arthritis; biliary chirrosis; biliary disease; Cirrhosis; Hypertension; ll1 Pancreatitis; - PSHx: 14:33 Appendectomy; Biliary stent removal; Biliary stents; Cholecystectomy; ll1 - Immunization history:: Adult Immunizations up to date. - Social history:: Smoking status: Patient denies any tobacco usage or history of. Screenin:21 [facility] ED Fall Risk Assessment (Adult) History of falling in the last 3 months, ap3 including since admission No falls in past 3 months (0 pts). Abuse screen: Denies threats or abuse. Nutritional screening: No deficits noted. Tuberculosis screening: No symptoms or risk factors identified. Assessment: 15:22 Reassessment: Patient and/or family updated on plan of care and expected duration. Pain ap3 level reassessed. Patient is alert, oriented x 3, equal unlabored respirations, skin warm/dry/pink. Vital Signs: 14:34 BP 186 / 102; Pulse 87; Resp 17; Temp 97.9; Pulse Ox 100% ; Weight 63.05 kg; Height 5 ll1 ft. 0 in. ; Pain 8/10; 15:39 BP 176 / 98; ap3 14:34 Body Mass Index 27.15 (63.05 kg, 152.4 cm) ll1 14:34 Pain Scale: Adult ll1 ED Course: 14:33 Patient arrived in ED. im 14:33 Arm band placed on. ll1 14:34 Barbie Cruz MD is Attending Physician. sd2 14:40 Triage completed. ll1 14:52 Tosha Florence, LUCIUS is Primary Nurse. ap3 15:22 Patient has correct armband on for positive identification. Bed in low position. Call ap3 light in reach. Provided Education on: medications prior to administration . 15:22 No provider procedures requiring assistance completed. ap3 15:42 Patient did not have IV access during this emergency room visit. ap3 Administered Medications: 15:07 Drug: LORazepam PO 1 mg Route: PO; ap3 15:43 Follow up: Response: No adverse reaction; Anxiety decreased ap3 15:07 Drug: HYDROcodone-acetaminophen PO 5 mg-325 mg 1 tabs Route: PO; ap3 15:43 Follow up: Response: No adverse reaction ap3 15:43 Follow up: Response: Pain is decreased ap3 15:07 Drug: Ondansetron PO 4 mg Route: PO; ap3 15:43 Follow up: Response: No adverse reaction ap3 15:07 Drug: Trimethoprim-Sulfamethoxazole PO (160 mg-800 mg (DS) 1 tablet Route: PO; ap3 15:43 Follow up: Response: No adverse reaction ap3 15:07 Drug: Cephalexin PO 500 mg Route: PO; ap3 15:43 Follow up: Response: No adverse reaction ap3 Medication: 15:22 VIS not applicable for this client. ap3 Outcome: 15:32 Discharge ordered by . sd2 15:42 Discharged to home ambulatory. ap3 15:42 Condition: good 15:42 Discharge instructions given to patient, Instructed on discharge instructions, follow up and referral plans. Demonstrated understanding of instructions, follow-up care, medications, Prescriptions given X 3. 15:43 Patient left the ED. ap3 Signatures: Tosha Florence RN RN ap3 Cathryn Jordan RN RN ll1 Barbie Cruz MD MD sd2 Mabel Kimbrough
[2022-10-25 16:01] VITALS: TEMP 97.9; O2SAT 100
[2022-10-25 16:02] VITALS: BP 176/98
== END 2022-10-25 15:43 | disposition home or self-care (01) ==
LOC: ER 14:31
DX: L03.011 Cellulitis of right finger (principal); F41.0 Panic disorder [episodic paroxysmal anxiety]; I10 Essential (primary) hypertension; Z88.5 Allergy status to narcotic agent
CPT/HCPCS: 99283; Q0162